=== PATIENT | female | born 1955 | race Caucasian/White ===

== ENCOUNTER 2017-09-12 16:28 | Emergency (ER) | payer MEDICARE, SELFPAY ==
[2017-09-12 16:29] VITALS: BP 102/51; PULSE 95; RESP 24; TEMP 36.6; BMI 22.1
--- NOTE | 2017-09-12 16:52 | CT_ITS ---
STUDY: CT BRAIN WITHOUT CONTRAST REASON FOR EXAM: Female, 61 years old. Confusion x2-3 days RADIATION DOSAGE (If Supplied By Facility): CTDIvol = ( 44.99 ) mGy, DLP = ( 779.24 ) mGycm TECHNIQUE: Transaxial CT imaging of the brain was performed without administration of intravenous contrast material. Individualized dose optimization techniques were used for this CT. COMPARISON: Prior study of February 05, 2017 FINDINGS: Normal soft tissue structures. Normal calvarium. Normal size ventricles and extra-axial spaces for the patient's age. Normal white matter tracts of the cerebral hemispheres. There are regions of encephalomalacia consistent with old infarcts of the right occipital and left parietal lobes, unchanged in distribution from the prior study. Normal basal ganglia and thalami. Normal brainstem. Normal cerebellum. There is no intracranial hemorrhage. There are no findings of an acute ischemic infarction. Normal visualized paranasal sinuses. 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 There is no intracranial hemorrhage or evidence of acute infarct. Electronically Signed: James Jj MD at 17:45 EDT , Service support ,
--- NOTE | 2017-09-12 16:52 | EKG12_ITS ---
Test Reason : CONFUSION Blood Pressure : / mmHG Vent. Rate : 094 BPM Atrial Rate : 094 BPM P-R Int : 126 ms QRS Dur : 076 ms QT Int : 346 ms P-R-T Axes : 071 087 055 degrees QTc Int : 432 ms Normal sinus rhythm ST & T wave abnormality, consider anterior ischemia Abnormal ECG Confirmed by MOISES MENDES, LINDSEY ([id number]), pictures editor AJ AYOUB ([id number]) on 09/15/2017 4:05:11 PM Referred By: KHARI Confirmed By:LINDSEY DE LEON MD
--- NOTE | 2017-09-12 16:53 | ED.VISSUMM ---
- ER Visit Summary Date of Service: 09/12/17 Chief Complaint: Confusion History of Present Illness: The patient is a 61 F here with significant other who is additional informant for confusion over the past 3 days. Patient has been forgetful, stating that she would see people that are not there. He states her kids moved out 3 months ago with grandchild, she would state kids need to prep dinner for her. Patient had stroke, last time 2 years ago. Denies any speech changes or hemiparesis. There has been no weakness or falls. Denies any upper respiratory symptoms. Denies any urinary symptoms. No GI symptoms. Patient normally alert and oriented ?3. Physical Examination: General: Alert and oriented to person and place, month was April, year was 2016. No acute distress. HEENT: Normocephalic, atraumatic. Moist mucosa membranes Neck: supple, nontender. Cardiovascular: Regular rate and rhythm, no murmurs Respiratory: Normal breath sounds, symmetric, no distress Abdomen: Soft, nontender, nondistended Extremities: Nontender, no edema, pulses intact ?4 Neuro: no focal neurological deficits. NIH equal 1 for being off on the month. Test Results: EKG sinus rate of 94, no ST changes. T-wave inversions V1 to V3 in leads III. 3 BC 9.3. Hemoglobin 14.6. Potassium hemolyzed at 5.8. Creatinine 1.87. BUN 33. Liver enzymes normal. Urine negative. CT head with old infarcts right occipital, left parietal. Chest x-ray negative. Emergency Department Course and Treatment: Patient presents with confusion, however stable. Stroke history. She is moving all 4 extremities. NIH was a 1 due to being off on the month. Workup initiated. Abnormalities creatinine 1.87 which is new. BUN is 33. She was given IV fluids of 1 L. No infection the urine or chest x-ray. Stable CT of the head. EKG T-wave inversions. She has no chest pains. Potassium was hemolyzed. No palpitation symptoms. She was ambulated in the ED to the restroom with no difficulties. Her blood pressure normally runs low. Her map is 75. Denied being lightheaded symptoms. Significant other is with her states he can stay with her and monitor. She feels better after IV fluids. Discussed with patient continue oral hydration at home, follow with PCP for recheck of labs. Discussed other of any worsening symptoms to return to the ED for reevaluation. All questions were answered. Treatment Plan: [] Disposition: Discharge Impression: 1. Confusion stable 2. Renal insufficiency 3. Dehydration This note was generated with [employer] dictation software. It may contain incorrect words, spelling, and punctuation that were not noted in review of the chart prior to signing ED Disposition - Plan for ED Patient: Disposition: Home or Assisted Living Chief Complaint: Confusion Diagnosis: Confusion, Dehydration, Acute renal insufficiency Instructions: ED Confusion, ED Insufficiency Renal, ED Dehydration Referrals: César Stahl MD [Primary Care Provider] - 3-5 Days Additional Instructions: Creatinine 1.87. Continue oral hydration at home. Follow with PCP reevaluation with recheck labs. Return if any worsening symptoms.
[2017-09-12 17:21] LABS: Bedside Glucose 127 mg/dL (70-110)
[2017-09-12 17:22] LABS: Absolute Lymphocyte Count 1.64 X10^3/ul (0.83-4.51); Absolute Neutrophil Count 6.6 X10^3/uL (2.0-7.7); Basophil# 0.03 X10^3/uL; Basophil% 0.3 % (0-1); Eosinophil# 0.04 X10^3/uL; Eosinophils% 0.4 % (0-5); Hematocrit 49.8 % (37-47); Hemoglobin 14.6 g/dl (12.0-15.0); Lymphocyte # 1.64 X10^3/ul (4.0); Lymphocyte % 17.6 % (19-41); Mean Corp Hgb Conc 29.3 g/gl (32-36); Mean Corpuscular Hgb 29.8 pg (27.0-32.0); Mean Corpuscular Volume 101.6 fL (81-99); Mean Platelet Vol. 11.2 fl (6.2-12.0); Monocyte# 0.98 X10^3/uL; Monocyte% 10.5 % (0-10); Neutrophil # 6.58 X10^3/uL (2.7-7.7); Neutrophil % 70.8 % (47-70); Platelet Count 224 K/mm3 (150-450); RBC Distribution Width CV 16.9 % (11.6-14.6); RBC Distribution Width SD 59.5 fl (35.1-43.9); White Blood Count 9.3 K/mm3 (4.4-11.0)
[2017-09-12 17:23] LABS: International Normalized Ratio 1.1; Prothrombin Time (Protime)PT. 13.8 SECONDS (11.7-14.9)
[2017-09-12 17:24] LABS: POSITIVE COUNT NO; POSITIVE DIFFERENTIAL NO; POSITIVE MORPHOLOGY NO; Partial Thromboplast Time 28.7 Seconds (24.1-36.2)
--- NOTE | 2017-09-12 17:28 | RAD_ITS ---
STUDY: X-RAY CHEST REASON FOR EXAM: Female, 61 years old. Confusion TECHNIQUE: PA and lateral views of the chest. COMPARISON: Previous study of February 07, 2017 FINDINGS: welding inspector leads are present. The lungs are clear and expanded. There is no demonstrated pleural abnormality. Normal size heart. Normal mediastinum and jacinto. Normal visualized pulmonary arteries. Normal visualized aortic arch and descending thoracic aorta. Normal visualized thoracic spine. Normal visualized ribs, clavicles, and shoulders. There is no demonstrated abnormality of the visualized soft tissue structures of the upper abdomen. RAD/Chest PA and Lateral IMPRESSION: Normal x-ray examination of the chest. No acute cardiopulmonary disease process is seen. Electronically Signed: James Jj MD at 17:46 EDT , Service support ,
[2017-09-12 17:34] LABS: ALB/GLOB Ratio 0.9 RATIO (0.9-2.4); AST(SGOT) 30 U/L (15-37); Alanine Aminotransfer ALT/SGPT 20 U/L (13-56); Albumin, Serum 3.7 g/dL (3.2-5.0); Alkaline Phosphatase 73 U/L (45-117); Anion Gap 3 (5-15); BUN 33 mg/dL (7-18); BUN/Creat Ratio 17.6 RATIO (10-20); Calcium,Total 8.8 mg/dL (8.5-10.1); Chloride 99 mmol/L (98-107); Creatinine, Serum 1.87 mg/dL (0.55-1.02); EST Glomerular Filtration Rate 29 mL/min (>60); Est Glom Filt Rate - Afr Amer 35 mL/min (>60); Glucose 136 mg/dL (74-106); Potassium 5.8 mmol/L (3.5-5.1); Protein, Total 7.7 g/dL (6.4-8.2); Sodium Level 138 mmol/L (136-145)
[2017-09-12 17:45] VITALS: BP 80/60
[2017-09-12 18:01] VITALS: BP 92/33; PULSE 92; RESP 50
[2017-09-12] MEDS: 0.9% Normal Saline 1,000 ML 999 ML IV (18:01)
[2017-09-12 18:05] LABS: Bacteria 0 SEEN /hpf (None Seen); Mucous, Urine 0 SEEN /hpf (<or=2+); Red Blood Cells-Urine 0 SEEN /hpf (0-5); Squamous Epithelial Cells - UA 0 SEEN /hpf (5-10); White Blood Cells 0 SEEN /hpf (0-5)
[2017-09-12 18:06] LABS: Color, Urine Yellow (Yellow); Glucose, Dipstick Normal (Normal); Ketone-Dipstick Negative (Negative); Leukocyte Esterase-Dipstick 25 /ul (Negative); Nitrite-Dipstick Negative (Negative); Occult Blood-Urine Negative /ul (Negative); Protein-Dipstick 15 mg/dl (Negative); Specific Gravity, Urine 1.025 (1.002-1.030); Urine Bilirubin Dipstick Negative (Negative); Urine Clarity Clear (Clear); Urine Urobilinogen Normal (Normal)
[2017-09-12 18:13] LABS: Hyaline Cast 50-100 SEEN /lpf (0-5)
[2017-09-12 19:35] VITALS: BP 80/69; PULSE 93; RESP 24; O2SAT 92
== END 2017-09-12 20:15 | disposition home or self-care (01) ==
PROVIDERS: Emergency Provider Emergency Medicine; Family Provider Family Medicine; PCP Family Medicine
DX: R41.0 Disorientation, unspecified (principal); N28.9 Disorder of kidney and ureter, unspecified; E86.0 Dehydration; I10 Essential (primary) hypertension; E78.00 Pure hypercholesterolemia, unspecified; J44.9 Chronic obstructive pulmonary disease, unspecified; I25.2 Old myocardial infarction; Z86.73 Personal history of transient ischemic attack (TIA), and cerebral infarction without residual deficits
CPT/HCPCS: 70450; 71046; 80053; 81001; 82962; 85025; 85610; 85730; 93005; 96360; 99284; J7030; A4216

== ENCOUNTER 2017-09-13 21:26 | Inpatient (IN) | payer MEDICARE, SELFPAY ==
[2017-09-13 21:39] VITALS: BP 88/45; PULSE 71; RESP 20; TEMP 36.3; O2SAT 100; BMI 27.3
--- NOTE | 2017-09-13 22:04 | CT_ITS ---
STUDY: CT BRAIN WITHOUT CONTRAST REASON FOR EXAM: Female, 61 years old. Altered mental status, confusion, and lethargy RADIATION DOSAGE (If Supplied By Facility): CTDIvol = ( 44.99 ) mGy, DLP = ( 782.05 ) mGycm TECHNIQUE: Transaxial CT imaging of the brain was performed without administration of intravenous contrast material. Individualized dose optimization techniques were used for this CT. COMPARISON: Previous study of 09/12/2017 FINDINGS: Normal soft tissue structures. Normal calvarium. Normal size ventricles and extra-axial spaces for the patient's age. Normal white matter tracts of the cerebral hemispheres. There are again demonstrated regions of encephalomalacia of the right occipital and left parietal lobes, unchanged in the interval. These are consistent with old infarcts. Normal basal ganglia and thalami. Normal brainstem. Normal cerebellum. There is no intracranial hemorrhage. There are no findings of an acute ischemic infarction. Normal visualized paranasal sinuses. CT/Brain/Head without Contrast IMPRESSION: Regions of encephalomalacia consistent with old infarcts of the right occipital and left parietal lobes. These appear stable in the interval from the previous study. There is no evidence of acute infarct or intracranial hemorrhage. If acute infarct is clinically suspected, MRI may be helpful for further evaluation at this time. Electronically Signed: James Jj MD at 22:53 EDT , Service support ,
--- NOTE | 2017-09-13 22:05 | EKG12_ITS ---
Test Reason : Blood Pressure : / mmHG Vent. Rate : 071 BPM Atrial Rate : 071 BPM P-R Int : 126 ms QRS Dur : 082 ms QT Int : 410 ms P-R-T Axes : 072 073 041 degrees QTc Int : 445 ms Normal sinus rhythm ST & T wave abnormality, consider anterior ischemia Abnormal ECG Confirmed by MOISES MENDES, LINDSEY ([id number]), editor sound AJ AYOUB ([id number]) on 09/15/2017 3:37:42 PM Referred By: DANO Confirmed By:LINDSEY DE LEON MD
[2017-09-13 22:11] LABS: Bedside Glucose 105 mg/dL (70-110)
[2017-09-13] MEDS: 0.9% Normal Saline 1,000 ML 1000 ML IV (22:13)
--- NOTE | 2017-09-13 22:21 | ED.RN ---
lab called coag and lactic acid hemolyzed. Primary nurse made aware at this time
--- NOTE | 2017-09-13 22:25 | RAD_ITS ---
STUDY: X-RAY CHEST REASON FOR EXAM: Female, 61 years old. Increased confusion TECHNIQUE: Single AP portable view of the chest. COMPARISON: Previous study of 09/12/2017 FINDINGS: monitoring coordinator leads are present. The lungs are clear and expanded. There is no demonstrated pleural abnormality. Normal size heart. There are bilateral calcified hilar nodes and calcified right mediastinal nodes. Normal visualized pulmonary arteries. Normal visualized aortic arch and descending thoracic aorta. Normal visualized thoracic spine. Normal visualized ribs, clavicles, and shoulders. There is no demonstrated abnormality of the visualized soft tissue structures of the upper abdomen. RAD/Chest 1 View (Portable) IMPRESSION: Calcified bilateral hilar and right mediastinal nodes. No acute cardiopulmonary disease process is seen. Electronically Signed: James Jj MD at 22:55 EDT , Service support ,
[2017-09-13 22:32] LABS: Hematocrit 47.9 % (37-47); Hemoglobin 13.9 g/dl (12.0-15.0); Mean Corpuscular Hgb 29.7 pg (27.0-32.0); Mean Corpuscular Volume 102.4 fL (81-99); Mean Platelet Vol. 10.9 fl (6.2-12.0); Platelet Count 199 K/mm3 (150-450); RBC Distribution Width CV 17.4 % (11.6-14.6); RBC Distribution Width SD 62.1 fl (35.1-43.9); Red Blood Count 4.68 M/mm3 (4.2-5.4); White Blood Count 10.6 K/mm3 (4.4-11.0)
[2017-09-13 22:34] LABS: POSITIVE COUNT YES; POSITIVE DIFFERENTIAL NO; POSITIVE MORPHOLOGY YES
[2017-09-13 22:35] LABS: ALB/GLOB Ratio 0.9 RATIO (0.9-2.4); AST(SGOT) 23 U/L (15-37); Alanine Aminotransfer ALT/SGPT 18 U/L (13-56); Albumin, Serum 3.2 g/dL (3.2-5.0); Alkaline Phosphatase 74 U/L (45-117); Anion Gap 2 (5-15); BUN 39 mg/dL (7-18); BUN/Creat Ratio 25.2 RATIO (10-20); Chloride 101 mmol/L (98-107); Creatinine, Serum 1.55 mg/dL (0.55-1.02); EST Glomerular Filtration Rate 36 mL/min (>60); Est Glom Filt Rate - Afr Amer 43 mL/min (>60); Estimated Creatinine Clearance 31.13 ml/min; Globulin 3.5 g/dL (2.2-4.2); Glucose 106 mg/dL (74-106); Potassium 5.6 mmol/L (3.5-5.1); Protein, Total 6.7 g/dL (6.4-8.2); Sodium Level 138 mmol/L (136-145)
[2017-09-13 22:53] LABS: Eosinophil 1 % (0-5); Lymphocyte 27 % (19-41); Monocyte 3 % (0-10); Neutrophil-Band 2 % (0-5); Neutrophil-Segmented 67 % (47-70); Nucleated Red Bld Cells,Manual 3 % (0-5); Total Cells Counted 100 (MANUAL DIFF)
[2017-09-13 22:56] LABS: Anisocytosis 1+; Macrocytosis 1+; Polychromasia 1+
[2017-09-13 22:57] LABS: Platelet Estimate ADEQUATE (ADEQ)
[2017-09-13 22:58] LABS: Differential Indicated MANUAL DIFF
[2017-09-13 22:59] LABS: Scan Smear per Review Criteria MANUAL DIFF
[2017-09-13 23:17] VITALS: BP 86/50; PULSE 74; RESP 18; O2SAT 97
[2017-09-13 23:21] LABS: Base Excess 5 mmol/L (-2 to +2); Bicarbonate 35.2 mmol/L (22-26); Blood Gas Specimen Type ART; O2 Delivery Device Nasal Can; PO2 135 mmHG (75-100); SITE R Radial; SO2 97 % (95-99); Time Given 2312; Total Carbon Dioxide 39 mmol/L; pCO2 126.1 mmHg (35-45); pH 7.05 (7.35-7.45)
[2017-09-13] MEDS: Etomidate 20 MG/10 ML Vial IV (23:34)
[2017-09-13] MEDS: Succinylcholine Chloride 200 MG/10 ML Vial 100 MG IV (23:35)
[2017-09-13 23:45] VITALS: PULSE 69; RESP 25; O2SAT 97
--- NOTE | 2017-09-13 23:45 | RAD_ITS ---
STUDY: X-RAY CHEST REASON FOR EXAM: Female, 61 years old. ETT PLACEMENT, OG TUBE TECHNIQUE: Single AP portable view of the chest. COMPARISON: None. FINDINGS: Endotracheal tube is seen its tip is 3.2 cm superior to the claude. An OG tube is seen its tip is below the diaphragm is in good position. The lungs are clear and expanded. There is no demonstrated pleural abnormality. Normal size heart. Normal mediastinum and jacinto. Normal visualized pulmonary arteries. Normal visualized aortic arch and descending thoracic aorta. Normal visualized thoracic spine. There is degenerative osteoarthritis of the bilateral shoulders. There is no demonstrated abnormality of the visualized soft tissue structures of the upper abdomen. RAD/Chest 1 View (Portable) IMPRESSION: Degenerative changes, as described above. No demonstrated acute cardiopulmonary process. Endotracheal tube is seen its tip is 3.2 cm superior to the claude. An OG tube is seen its tip is below the diaphragm is in good position. Electronically Signed: Peter De Guzman MD at 0:35 EDT Tel , Service support ,
[2017-09-13] MEDS: Midazolam 2 MG/2 ML Syringe IV (23:53)
[2017-09-14] VITALS (49 sets, daily range): BP systolic 78–139; BP diastolic 27–108; PULSE 44–85; RESP 13–23; TEMP 36.3–37.4; O2SAT 90–100; BMI 25.8
[2017-09-14] MEDS: Midazolam 5 MG/ML Syringe 4 MG IV (00:01)
[2017-09-14 00:12] LABS: Lactic Acid 0.7 mmol/L (0.4-2.0)
--- NOTE | 2017-09-14 00:12 | EKG12_ITS ---
Test Reason : REPEAT Blood Pressure : / mmHG Vent. Rate : 063 BPM Atrial Rate : 063 BPM P-R Int : 116 ms QRS Dur : 072 ms QT Int : 458 ms P-R-T Axes : 087 070 051 degrees QTc Int : 468 ms Normal sinus rhythm T wave abnormality, consider anterior ischemia Prolonged QT Abnormal ECG Confirmed by MOISES MENDES, LINDSEY ([id number]), general expeditor AJ AYOUB ([id number]) on 09/15/2017 3:37:59 PM Referred By: DANO Confirmed By:LINDSEY DE LEON MD
[2017-09-14] MEDS: Propofol 10MG/Ml 1,000 MG/100 ML Bottle 2.1 MG CONT INF ×2 (00:26→12:46)
[2017-09-14] MEDS: MethylPREDNISolone 125 MG/2 ML Vial IV (00:27)
[2017-09-14] MEDS: Albuterol 2.5 MG/3 ML VIAL.NEB. INHALATION ×2 (00:27→07:05)
[2017-09-14] MEDS: 0.9% Normal Saline 1,000 ML 1000 ML IV (00:29)
[2017-09-14] MEDS: Ipratropium/Albuterol Sulfate 3 ML AMPUL.NEB INHALATION ×5 (00:31→22:52)
--- NOTE | 2017-09-14 00:36 | ED.VISSUMM ---
- ER Visit Summary Date of Service: 09/14/17 Chief Complaint: Confusion History of Present Illness: The patient is a 61 F who presents with confusion. Does have a significant past medical history of stroke, ID ES family states she has been increasingly confused and sick for the past week. She has had increased fatigue and generalized weakness. She has just not been feeling well. She has become increasingly confused. She was seen in the emergency department last night. She was noted to have an acute kidney injury with elevated creatinine was treated with IV fluids and discharged home. Daughter states that she was much more confused today. Has had some cough and diarrhea but family states she has not been complaining of chest pain shortness of breath fevers or vomiting. Physical Examination: Initial blood pressure 88/45 heart rate 71 respiratory rate of 20 pulse ox 100% on nonrebreather GCS is 10 eyes 3, verbal 3, motor 4 she has mumbling and inappropriate words is a able to provide any history or answer questions but does not appear to have focal or lateralizing neurological deficits Heart is regular rate and rhythm Lungs are clear Abdomen soft Extremities nontender Test Results: EKG shows normal sinus rhythm at a rate of 71 with T-wave inversions in V1 through V4 which are new from prior. CBC unremarkable. Hepatic function unremarkable. Troponin negative. Lactic acid negative. Chemistries notable for potassium of 5.6 although this is moderately hemolyzed. BUN of 39 with a creatinine of 1.55. Chest x-ray shows no acute process. CT of the head shows old infarcts in the right occipital and left parietal lobes no acute process. ABG shows pH 7.05 with a PCO2 of 126 PO2 of 135. Emergency Department Course and Treatment: She was treated with IV fluids. On return of her ABG the decision was made in event. I spoke to family who agreed. Patient underwent rapid sequence intubation using etomidate and succinylcholine and a 7-1/2 endotracheal tube was easily passed. There were good breath sounds bilaterally and change in CO2 detector. Postintubation chest x-ray shows appropriate placement of endotracheal tube and orogastric tube. Patient did become agitated on the ventilator and was given Versed for sedation and then started on propofol infusion. After intubation her blood pressure improved and she was stable above 110 systolic. After being bolused with propofol she was transiently hypotensive. She does appear to be perfusing better with brisk capillary refill. In review of record she does have a history of COPD. After intubation she was also noted to have decreased air exchange and was given albuterol and Atrovent aerosols and IV Solu-Medrol. Given normal urine yesterday normal chest x-ray lack of tachycardia leukocytosis or lactic acidosis I do not believe this is related to any infectious process. I believe this is related to her COPD with severe hypercapnia. She was discussed with Dr. Flannery the manuscript editor on-call as well as the hospitalist will be admitted to the ICU. Repeat EKG shows persistent T-wave inversions in V1 and V2 with biphasic T waves in V3 and V4. Treatment Plan: [] Disposition: Admit Impression: Acute kidney injury Acute hypercapnic respiratory failure EKG changes This note was generated with [employer] dictation software. It may contain incorrect words, spelling, and punctuation that were not noted in review of the chart prior to signing ED Disposition - Plan for ED Patient: Chief Complaint: Confusion Referrals: César Stahl MD [Primary Care Provider] -
--- NOTE | 2017-09-14 00:39 | PCM.HP.STD ---
Problem List (1) Acute respiratory failure Status: Acute Qualifiers: Respiratory failure complication: hypercapnia Qualified Code(s): J96.02 - Acute respiratory failure with hypercapnia (2) Hemorrhagic cerebrovascular accident (CVA) Status: Resolved (3) Heart failure with reduced ejection fraction Status: Chronic (4) Metabolic encephalopathy Status: Acute (5) Elevated serum creatinine Status: Acute (6) COPD (chronic obstructive pulmonary disease) Status: Acute Qualifiers: COPD type: COPD with acute exacerbation Qualified Code(s): J44.1 - Chronic obstructive pulmonary disease with (acute) exacerbation (7) Alcoholism Status: Chronic History of Present Illness Date of Admission: 09/14/17 Chief Complaint: acute respiratory failure The patient is a 61 year old female who presents to the ER in a confused state. The patient has a recent history of hemorrhagic stroke in 02/2017 and a NSTEMI at that time. She has a known history of alcoholism and poor self care. She was seen in the ER yesterday and was discharged having been diagnosed with renal insufficiency. Today she was weak and more confused according to family members. Her ABG shows a pH of 7.05 and CO2 of 126. EKG shows new T-wave inversions. She was intubated and sedated. She appeared to have improved color after her second liter of IV fluid. She will be admitted to the ICU for advanced care. Past Medical History Past Medical History (Chronic Problems): Chronic Problems Heart failure with reduced ejection fraction (Chronic) Alcoholism (Chronic) Allergies tetanus and diphtheria toxoids [tetanus & diphtheria toxoids] Allergy (Verified 09/13/17 21:27) Hives Home Medications: Ambulatory Orders Medication Instructions Recorded Aspirin E.C. [Ecotrin] 81 mg PO DAILY 02/22/17 Atorvastatin Calcium 1 tab PO DAILY 02/22/17 Carvedilol [Coreg (Beta Indy)] 12.5 mg PO BID 02/22/17 Folic Acid [Folic Acid] 1 tab PO DAILY 02/22/17 Lisinopril [Zestril] 1 tab PO DAILY 02/22/17 Spironolactone 1 tab PO DAILY 02/22/17 Surgical History: cholecystectomy Psychiatric History: - - Insomnia CAPITAL EQUIPMENT SPECIALIST History: No pertinent CAPITAL EQUIPMENT SPECIALIST history Smoking Status: Former smoker - *Family History Maternal History Items: Cancer - Lung Paternal History Items: Cancer - Lung Sibling History Items: Cancer - lung Review of Systems Constitutional: Denies: Chills, Fever, Weight Change HEENT: Denies: Head Aches, Sinus Congestion, Sinus Drainage Cardiovascular: Denies: Chest Pain, Palpitations Respiratory: Reports: Shortness of breath at rest. Denies: Cough, Sputum production Gastrointestinal: Denies: Abdominal Pain, Nausea, Vomiting Genitourinary: Denies: Dysuria Musculoskeletal: Denies: Joint Pain, Joint Tenderness Skin: Denies: Rash, Wounds Neurological: Denies: Numbness, Tingling, Focal weakness Psychiatric: Denies: Anxiety, Depression, Homicidal Ideations, Suicidal Ideations Hematologic/ Lymphatic: Denies: Easy Bruising, Easy Bleeding Unable to obtain accurate/complete ROS d/t: poor historian due to confusion and now intubated VTE Information - Inpt Only VTE Present on Admission: No VTE Mechan Device Prophylaxis: None VTE Pharm Prophylaxis ordered?: Yes Patient Problems: Active and Suspected Problems Acute respiratory failure (Acute) - Physical Exam General: - - intubated HEENT: Atraumatic, Normocephalic Neck: Supple Lungs: No rhonchi, No wheeze, No rales, Diminished Cardiovascular: Regular rate, Regular Rhythm, Normal S1, Normal S2, No murmurs Abdomen: Bowel Sounds Present, Soft Extremities: No edema Skin: No rashes, No breakdown Neurological: - - under sedation protocol Vital Signs Temp Pulse Resp BP Pulse Ox 97.4 F L 61 15 114/72 100 09/14/17 00:05 09/14/17 00:31 09/14/17 00:31 09/14/17 00:31 09/14/17 00:31 Oxygen Flow Rate (L/min) 2 Oxygen Delivery Method Mechanical Ventilator Weight: 154 lb 5.177 oz Body Mass Index (BMI) 27.3 Finger Stick Blood Glucose 105 Laboratory Tests Past 24 Hrs 09/13/17 09/13/17 09/13/17 21:56 21:56 21:56 WBC 10.6 RBC 4.68 Hgb 13.9 Hct 47.9 H MCV 102.4 H MCH 29.7 MCHC 29.0 L RDW 17.4 H RDW Differential 62.1 H Plt Count 199 MPV 10.9 Immature Gran % (Auto) FOLDED CLOTH TAPER Neut % (Auto) FOLDED CLOTH TAPER Lymph % (Auto) FOLDED CLOTH TAPER Atlantic % (Auto) FOLDED CLOTH TAPER Eos % (Auto) FOLDED CLOTH TAPER Baso % (Auto) FOLDED CLOTH TAPER Absolute Neuts (auto) FOLDED CLOTH TAPER Absolute Lymphs (auto) FOLDED CLOTH TAPER Total Counted 100 Neutrophils % (Manual) 67 Band Neutrophils % 2 Lymphocytes % (Manual) 27 Monocytes % (Manual) 3 Eosinophils % (Manual) 1 Nucleated RBCs/100 WBC 3 Diff Path Review May foll Platelet Estimate ADEQUATE Polychromasia 1+ Anisocytosis 1+ Macrocytosis 1+ PT Cancelled INR Cancelled Specimen Type Sample Site pH Bicarbonate Actual POC Total CO2 Base Excess O2 Saturation ABG pCO2 ABG pO2 Royal Test O2 Delivery Device Liter Flow Blood Gas Notified Whom Blood Gas Notified Time Sodium 138 Potassium 5.6 H Chloride 101 Carbon Dioxide 35.0 H Anion Gap 2 L BUN 39 H Creatinine 1.55 H Estim Creat Clear Calc 31.13 Est GFR (MDRD) Af Amer 43 L Est GFR (MDRD) Non-Af 36 L BUN/Creatinine Ratio 25.2 H Glucose 106 Lactic Acid Calcium 8.0 L Total Bilirubin 0.50 AST 23 ALT 18 Alkaline Phosphatase 74 Troponin I < 0.02 Total Protein 6.7 Albumin 3.2 Globulin 3.5 Albumin/Globulin Ratio 0.9 09/13/17 09/13/17 09/13/17 21:56 23:13 23:23 WBC RBC Hgb Hct MCV MCH MCHC RDW RDW Differential Plt Count MPV Immature Gran % (Auto) Neut % (Auto) Lymph % (Auto) Atlantic % (Auto) Eos % (Auto) Baso % (Auto) Absolute Neuts (auto) Absolute Lymphs (auto) Total Counted Neutrophils % (Manual) Band Neutrophils % Lymphocytes % (Manual) Monocytes % (Manual) Eosinophils % (Manual) Nucleated RBCs/100 WBC Diff Path Review Platelet Estimate Polychromasia Anisocytosis Macrocytosis PT INR Specimen Type ART Sample Site R Radial pH 7.05 L* Bicarbonate Actual 35.2 H POC Total CO2 39 Base Excess 5 H O2 Saturation 97 ABG pCO2 126.1 H* ABG pO2 135 H Royal Test NA O2 Delivery Device Nasal Can Liter Flow 4.0 Blood Gas Notified Whom ED Blood Gas Notified Time 2312 Sodium Potassium Chloride Carbon Dioxide Anion Gap BUN Creatinine Estim Creat Clear Calc Est GFR (MDRD) Af Amer Est GFR (MDRD) Non-Af BUN/Creatinine Ratio Glucose Lactic Acid Cancelled 0.7 Calcium Total Bilirubin AST ALT Alkaline Phosphatase Troponin I Total Protein Albumin Globulin Albumin/Globulin Ratio POC Glucose 09/13/17 22:07 POC Glucose 105 Assessment/Plan Active and Suspected Problems Acute respiratory failure (Acute) Chronic conditions - history of alcoholism - COPD - CVA - CAD hx of NSTEMI - poor self care Plan - admit to ICU - Consult Dr Flannery for ICU management - continue propofol sedation - ABG, CBC, CMP in am - add thiamine and folate - LMWH for DVT prophylaxis - solumedrol IV 40mg iv q 8 - levaquin 500mg IV q day - cycle cardiac enzymes - repeat EKG in am Code Visit Inpatient E&M: 79123 Init Hosp L3
--- NOTE | 2017-09-14 00:44 | ED.DCSUM_ITS ---
- ER Visit Summary Date of Service: 09/14/17 Chief Complaint: Confusion History of Present Illness: The patient is a 61 F who presents with confusion. Does have a significant past medical history of stroke, [place] ES family states she has been increasingly confused and sick for the past week. She has had increased fatigue and generalized weakness. She has just not been feeling well. She has become increasingly confused. She was seen in the emergency department last night. She was noted to have an acute kidney injury with elevated creatinine was treated with IV fluids and discharged home. Daughter states that she was much more confused today. Has had some cough and diarrhea but family states she has not been complaining of chest pain shortness of breath fevers or vomiting. Physical Examination: Initial blood pressure 88/45 heart rate 71 respiratory rate of 20 pulse ox 100% on nonrebreather GCS is 10 eyes 3, verbal 3, motor 4 she has mumbling and inappropriate words is a able to provide any history or answer questions but does not appear to have focal or lateralizing neurological deficits Heart is regular rate and rhythm Lungs are clear Abdomen soft Extremities nontender Test Results: EKG shows normal sinus rhythm at a rate of 71 with T-wave inversions in V1 through V4 which are new from prior. CBC unremarkable. Hepatic function unremarkable. Troponin negative. Lactic acid negative. Chemistries notable for potassium of 5.6 although this is moderately hemolyzed. BUN of 39 with a creatinine of 1.55. Chest x-ray shows no acute process. CT of the head shows old infarcts in the right occipital and left parietal lobes no acute process. ABG shows pH 7.05 with a PCO2 of 126 PO2 of 135. Emergency Department Course and Treatment: She was treated with IV fluids. On return of her ABG the decision was made in event. I spoke to family who agreed. Patient underwent rapid sequence intubation using etomidate and succinylcholine and a 7-1/2 endotracheal tube was easily passed. There were good breath sounds bilaterally and change in CO2 detector. Postintubation chest x-ray shows appropriate placement of endotracheal tube and orogastric tube. Patient did become agitated on the ventilator and was given Versed for sedation and then started on propofol infusion. After intubation her blood pressure improved and she was stable above 110 systolic. After being bolused with propofol she was transiently hypotensive. She does appear to be perfusing better with brisk capillary refill. In review of record she does have a history of COPD. After intubation she was also noted to have decreased air exchange and was given albuterol and Atrovent aerosols and IV Solu-Medrol. Given normal urine yesterday normal chest x-ray lack of tachycardia leukocytosis or lactic acidosis I do not believe this is related to any infectious process. I believe this is related to her COPD with severe hypercapnia. She was discussed with Dr. Flannery the director plans on-call as well as the hospitalist will be admitted to the ICU. Repeat EKG shows persistent T- wave inversions in V1 and V2 with biphasic T waves in V3 and V4. Treatment Plan: [] Disposition: Admit Impression: Acute kidney injury Acute hypercapnic respiratory failure EKG changes This note was generated with [employer] dictation software. It may contain incorrect words, spelling, and punctuation that were not noted in review of the chart prior to signing ED Disposition - Plan for ED Patient: Chief Complaint: Confusion Referrals: César Stahl MD [Primary Care Provider] -
--- NOTE | 2017-09-14 00:49 | HP.PCM_ITS ---
Problem List (1) Acute respiratory failure Status: Acute Qualifiers: Respiratory failure complication: hypercapnia Qualified Code(s): J96.02 - Acute respiratory failure with hypercapnia (2) Hemorrhagic cerebrovascular accident (CVA) Status: Resolved (3) Heart failure with reduced ejection fraction Status: Chronic (4) Metabolic encephalopathy Status: Acute (5) Elevated serum creatinine Status: Acute (6) COPD (chronic obstructive pulmonary disease) Status: Acute Qualifiers: COPD type: COPD with acute exacerbation Qualified Code(s): J44.1 - Chronic obstructive pulmonary disease with (acute) exacerbation (7) Alcoholism Status: Chronic History of Present Illness Date of Admission: 09/14/17 Chief Complaint: acute respiratory failure The patient is a 61 year old female who presents to the ER in a confused state. The patient has a recent history of hemorrhagic stroke in 02/2017 and a NSTEMI at that time. She has a known history of alcoholism and poor self care. She was seen in the ER yesterday and was discharged having been diagnosed with renal insufficiency. Today she was weak and more confused according to family members. Her ABG shows a pH of 7.05 and CO2 of 126. EKG shows new T-wave inversions. She was intubated and sedated. She appeared to have improved color after her second liter of IV fluid. She will be admitted to the ICU for advanced care. Past Medical History Past Medical History (Chronic Problems): Chronic Problems Heart failure with reduced ejection fraction (Chronic) Alcoholism (Chronic) Allergies tetanus and diphtheria toxoids [tetanus & diphtheria toxoids] Allergy (Verified 09/13/17 21:27) Hives Home Medications: Ambulatory Orders Medication Instructions Recorded Aspirin E.C. 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 Denies: Cough, Sputum production Gastrointestinal: Denies: Abdominal Pain, Nausea, Vomiting Genitourinary: Denies: Dysuria Musculoskeletal: Denies: Joint Pain, Joint Tenderness Skin: Denies: Rash, Wounds Neurological: Denies: Numbness, Tingling, Focal weakness Psychiatric: Denies: Anxiety, Depression, Homicidal Ideations, Suicidal Ideations Hematologic/ Lymphatic: Denies: Easy Bruising, Easy Bleeding Unable to obtain accurate/complete ROS d/t: poor historian due to confusion and now intubated VTE Information - Inpt Only VTE Present on Admission: No VTE Mechan Device Prophylaxis: None VTE Pharm Prophylaxis ordered?: Yes Patient Problems: Active and Suspected Problems Acute respiratory failure (Acute) - Physical Exam General: - - intubated HEENT: Atraumatic, Normocephalic Neck: Supple Lungs: No rhonchi, No wheeze, No rales, Diminished Cardiovascular: Regular rate, Regular Rhythm, Normal S1, Normal S2, No murmurs Abdomen: Bowel Sounds Present, Soft Extremities: No edema Skin: No rashes, No breakdown Neurological: - - under sedation protocol Vital Signs Temp Pulse Resp BP Pulse Ox 97.4 F L 61 15 114/72 100 09/14/17 00:05 09/14/17 00:31 09/14/17 00:31 09/14/17 00:31 09/14/17 00:31 Oxygen Flow Rate (L/min) 2 Oxygen Delivery Method Mechanical Ventilator Weight: 154 lb 5.177 oz Body Mass Index (BMI) 27.3 Finger Stick Blood Glucose 105 Laboratory Tests Past 24 Hrs 09/13/17 09/13/17 09/13/17 21:56 21:56 21:56 WBC 10.6 RBC 4.68 Hgb 13.9 Hct 47.9 H MCV 102.4 H MCH 29.7 MCHC 29.0 L RDW 17.4 H RDW Differential 62.1 H Plt Count 199 MPV 10.9 Immature Gran % (Auto) BATCH MIXER Neut % (Auto) BATCH MIXER Lymph % (Auto) BATCH MIXER Villalba % (Auto) BATCH MIXER Eos % (Auto) BATCH MIXER Baso % (Auto) BATCH MIXER Absolute Neuts (auto) BATCH MIXER Absolute Lymphs (auto) BATCH MIXER Total Counted 100 Neutrophils % (Manual) 67 Band Neutrophils % 2 Lymphocytes % (Manual) 27 Monocytes % (Manual) 3 Eosinophils % (Manual) 1 Nucleated RBCs/100 WBC 3 Diff Path Review May foll Platelet Estimate ADEQUATE Polychromasia 1+ Anisocytosis 1+ Macrocytosis 1+ PT Cancelled INR Cancelled Specimen Type Sample Site pH Bicarbonate Actual POC Total CO2 Base Excess O2 Saturation ABG pCO2 ABG pO2 Royal Test O2 Delivery Device Liter Flow Blood Gas Notified Whom Blood Gas Notified Time Sodium 138 Potassium 5.6 H Chloride 101 Carbon Dioxide 35.0 H Anion Gap 2 L BUN 39 H Creatinine 1.55 H Estim Creat Clear Calc 31.13 Est GFR (MDRD) Af Amer 43 L Est GFR (MDRD) Non-Af 36 L BUN/Creatinine Ratio 25.2 H Glucose 106 Lactic Acid Calcium 8.0 L Total Bilirubin 0.50 AST 23 ALT 18 Alkaline Phosphatase 74 Troponin I < 0.02 Total Protein 6.7 Albumin 3.2 Globulin 3.5 Albumin/Globulin Ratio 0.9 09/13/17 09/13/17 09/13/17 21:56 23:13 23:23 WBC RBC Hgb Hct MCV MCH MCHC RDW RDW Differential Plt Count MPV Immature Gran % (Auto) Neut % (Auto) Lymph % (Auto) Villalba % (Auto) Eos % (Auto) Baso % (Auto) Absolute Neuts (auto) Absolute Lymphs (auto) Total Counted Neutrophils % (Manual) Band Neutrophils % Lymphocytes % (Manual) Monocytes % (Manual) Eosinophils % (Manual) Nucleated RBCs/100 WBC Diff Path Review Platelet Estimate Polychromasia Anisocytosis Macrocytosis PT INR Specimen Type ART Sample Site R Radial pH 7.05 L* Bicarbonate Actual 35.2 H POC Total CO2 39 Base Excess 5 H O2 Saturation 97 ABG pCO2 126.1 H* ABG pO2 135 H Royal Test NA O2 Delivery Device Nasal Can Liter Flow 4.0 Blood Gas Notified Whom ED Blood Gas Notified Time 2312 Sodium Potassium Chloride Carbon Dioxide Anion Gap BUN Creatinine Estim Creat Clear Calc Est GFR (MDRD) Af Amer Est GFR (MDRD) Non-Af BUN/Creatinine Ratio Glucose Lactic Acid Cancelled 0.7 Calcium Total Bilirubin AST ALT Alkaline Phosphatase Troponin I Total Protein Albumin Globulin Albumin/Globulin Ratio POC Glucose 09/13/17 22:07 POC Glucose 105 Assessment/Plan Active and Suspected Problems Acute respiratory failure (Acute) Chronic conditions - history of alcoholism - COPD - CVA - CAD hx of NSTEMI - poor self care Plan - admit to ICU - Consult Dr Flannery for ICU management - continue propofol sedation - ABG, CBC, CMP in am - add thiamine and folate - LMWH for DVT prophylaxis - solumedrol IV 40mg iv q 8 - levaquin 500mg IV q day - cycle cardiac enzymes - repeat EKG in am Code Visit Inpatient E&M: 83434 Init Hosp L3
[2017-09-14] MEDS: LORazepam 2 MG/ML Syringe IV (00:57)
[2017-09-14 01:17] LABS: Base Excess 6 mmol/L (-2 to +2); Bicarbonate 31.2 mmol/L (22-26); Blood Gas Specimen Type ART; FI02 50; Mode A-C; O2 Delivery Device Vent; PEEP 5; PO2 106 mmHG (75-100); RR 14; SITE R Radial; SO2 98 % (95-99); Time Given 107; Total Carbon Dioxide 33 mmol/L; Vt 450; pCO2 50.6 mmHg (35-45)
[2017-09-14 01:32] LABS: Potassium 5.7 mmol/L (3.5-5.1); Triglycerides 147 mg/dL
[2017-09-14 01:51] LABS: Absolute Lymphocyte Count 2.86 X10^3/ul (0.83-4.51); Absolute Neutrophil Count 7.3 X10^3/uL (2.0-7.7)
--- NOTE | 2017-09-14 02:26 | RAD_ITS ---
STUDY: X-RAY CHEST REASON FOR EXAM: Female, 61 years old. Reposition ET tube TECHNIQUE: Single AP portable view of the chest. COMPARISON: 09/13/2017 FINDINGS: The endotracheal tube tip is 3.4 cm superior to the claude. The enteric tube courses inferior to the left diaphragm, its tip is not included or visualized. There are superimposed monitor leads. There is hyperinflation of the lungs consistent with chronic obstructive lung disease (COPD). There is indistinct right diaphragmatic contour, not significantly changed. There is no demonstrated pleural abnormality. Normal size heart. Normal mediastinum and jacinto. Normal visualized pulmonary arteries. Normal visualized aortic arch and descending thoracic aorta. Normal visualized thoracic spine. Normal visualized ribs, clavicles, and shoulders. There is no demonstrated abnormality of the visualized soft tissue structures of the upper abdomen. RAD/Chest 1 View (Portable) IMPRESSION: The lines are in adequate position. COPD. Indistinct right diaphragmatic contour could be due to mild pleural thickening and/or effusion. Electronically Signed: Ayah Coffman MD at 4:13 EDT , Service support ,
[2017-09-14] MEDS: 0.9% Normal Saline 1,000 ML 100 ML IV (02:54)
[2017-09-14] MEDS: Chlorhexidine 15 ML PO ×3 (03:12→21:14)
[2017-09-14] MEDS: CHLORHEXIDINE GLUC 2% CLOTH 1 EACH TOWELETTE TOPICAL (03:23)
[2017-09-14 03:32] LABS: Absolute Lymphocyte Count 1.16 X10^3/ul (0.83-4.51); Absolute Neutrophil Count 8.8 X10^3/uL (2.0-7.7); Basophil# 0.03 X10^3/uL; Basophil% 0.3 % (0-1); Eosinophil# 0.03 X10^3/uL; Eosinophils% 0.3 % (0-5); Hematocrit 49.2 % (37-47); Hemoglobin 14.8 g/dl (12.0-15.0); Lymphocyte # 1.16 X10^3/ul (4.0); Lymphocyte % 10.9 % (19-41); Mean Corp Hgb Conc 30.1 g/gl (32-36); Mean Corpuscular Hgb 30.3 pg (27.0-32.0); Mean Corpuscular Volume 100.6 fL (81-99); Mean Platelet Vol. 10.9 fl (6.2-12.0); Monocyte# 0.52 X10^3/uL; Monocyte% 4.9 % (0-10); Neutrophil # 8.78 X10^3/uL (2.7-7.7); Neutrophil % 82.2 % (47-70); POSITIVE COUNT NO; POSITIVE DIFFERENTIAL NO; POSITIVE MORPHOLOGY NO; Platelet Count 167 K/mm3 (150-450); RBC Distribution Width CV 16.9 % (11.6-14.6); RBC Distribution Width SD 59.7 fl (35.1-43.9); Red Blood Count 4.89 M/mm3 (4.2-5.4); White Blood Count 10.7 K/mm3 (4.4-11.0)
[2017-09-14 03:33] LABS: Absolute Nucleated RBC Count 0.25 10^3/uL (0-5); NRBC Flagged by Analyzer 2.4 % (0-5)
[2017-09-14 03:39] LABS: International Normalized Ratio 1.1; Prothrombin Time (Protime)PT. 14.5 SECONDS (11.7-14.9)
[2017-09-14 03:52] LABS: AST(SGOT) 29 U/L (15-37); Alanine Aminotransfer ALT/SGPT 19 U/L (13-56); Albumin, Serum 3.2 g/dL (3.2-5.0); Alkaline Phosphatase 69 U/L (45-117); Anion Gap 8 (5-15); BUN 36 mg/dL (7-18); BUN/Creat Ratio 26.7 RATIO (10-20); Calcium,Total 8.2 mg/dL (8.5-10.1); Chloride 102 mmol/L (98-107); Creatinine, Serum 1.35 mg/dL (0.55-1.02); EST Glomerular Filtration Rate 42 mL/min (>60); Est Glom Filt Rate - Afr Amer 51 mL/min (>60); Estimated Creatinine Clearance 35.74 ml/min; Globulin 3.3 g/dL (2.2-4.2); Glucose 95 mg/dL (74-106); Potassium 5.3 mmol/L (3.5-5.1); Protein, Total 6.5 g/dL (6.4-8.2); Sodium Level 143 mmol/L (136-145)
--- NOTE | 2017-09-14 04:54 | CON.PCM_ITS ---
Reason for Consult Date of Consultation: 09/14/17 Reason for Consultation: Respiratory failure History of Present Illness: The patient is a 61-year-old female, with a history as outlined below, who presented to the emergency department on September 14 with generalized malaise and increasing confusion over 1 week. The patient was seen in the emergency department on the evening of September 12 and was noted to be confused at that time. Workup at that time was negative. She was given supplemental IV fluid hydration with improvement in her symptoms. She was therefore discharged home. Patient has a history of a prior hemorrhagic stroke and alcoholism. She also has a presumptive history of COPD and ongoing tobacco use. Pulmonary function testing has never been completed previously. It does not appear that she is on any outpatient baseline inhalers. On presentation to the emergency department, the patient was noted to be afebrile, hypotensive and hypoxic on a nonrebreather. Initial laboratory evaluation revealed no evidence for leukocytosis. The patient did have macrocytic blood indices. INR is within normal limits. Initial arterial blood gas on 4 L/min revealed a pH of 7.05 with a PCO2 of 126 and PO2 of 135. Chemistry profile revealed an elevated potassium to 5.7, serum bicarbonate of 35 (which appears to be chronic), along with evidence of acute kidney injury with a creatinine 1.55. Troponin was negative. CT head revealed evidence of old infarcts in the right occipital and left parietal lobes. There was no evidence of acute infarction or intracranial hemorrhage. Plain film chest x- ray revealed no acute cardiopulmonary process with evidence of calcified bilateral hilar and mediastinal lymph nodes. Patient had a documented GCS of 10 on arrival. Given the depressed mental state noted on arrival along with elevated PCO2 on blood gas, the patient was electively intubated. She was provided supplemental IV fluids, aerosol treatments and steroids. She was subsequently transferred to the medical intensive care unit for ongoing management. Past Medical History Past Medical History (Chronic Problems): Chronic Problems Heart failure with reduced ejection fraction (Chronic) Alcoholism (Chronic) Allergies tetanus and diphtheria toxoids [tetanus & diphtheria toxoids] Allergy (Verified 09/13/17 21:27) Hives Home Medications: Ambulatory Orders Medication Instructions Recorded Aspirin E.C. 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 Patient Problems: Active and Suspected Problems Acute respiratory failure (Acute) Objective: The patient's most recent lab work, culture data and imaging studies have all been personally reviewed. Blood cultures are pending. Surface echocardiogram completed in February 2017 revealed mild global LV systolic dysfunction with an ejection fraction of 45%. Pulmonary artery systolic pressure was estimated to be 36 mmHg. - Physical Exam General: No apparent distress, - - Currently intubated, sedated and mechanically ventilated HEENT: Atraumatic, PERRLA, Normocephalic Oral: No Gingival or Mucosal Lesions/ Ulcerations, - - Endotracheal and OG tubes in place Neck: Supple, No Nodes, Trachea Midline Lungs: - - Mechanical breath sounds. Clear across anterior lung smith without discernible wheezes, rales or rhonchi. Cardiovascular: Regular rate, Regular Rhythm, Normal S1, Normal S2, No murmurs, No rub noted, No Gallop Abdomen: Soft, Non Tender, Non-Distended, Hypoactive Bowel Sounds Extremities: No clubbing, No cyanosis, No edema Skin: No rashes, No breakdown, - - Tattoos present Musculoskeletal: No Muscle Wasting Lymphatic: No Cervical, Supraclavicular, or Inguinal Adenopathy Neurological: - - Currently sedated with a RASS of -3 Vital Signs Temp Pulse Resp BP Pulse Ox 99.2 F H 70 14 113/48 L 100 09/14/17 04:00 09/14/17 04:00 09/14/17 04:00 09/14/17 04:00 09/14/17 04:00 Oxygen Delivery Method Mechanical Ventilator Weight: 145 lb 11.609 oz Body Mass Index (BMI) 25.8 Laboratory Tests Past 24 Hrs 09/14/17 09/14/17 09/14/17 01:08 03:10 03:10 WBC 10.7 RBC 4.89 Hgb 14.8 Hct 49.2 H MCV 100.6 H MCH 30.3 MCHC 30.1 L RDW 16.9 H RDW Differential 59.7 H Plt Count 167 MPV 10.9 Immature Gran % (Auto) 1.400 H Neut % (Auto) 82.2 H Lymph % (Auto) 10.9 L Antelope % (Auto) 4.9 Eos % (Auto) 0.3 Baso % (Auto) 0.3 Absolute Neuts (auto) 8.8 H Absolute Lymphs (auto) 1.16 Total Counted Not Reportable Nucleated RBC % 2.4 Absolute Retic 0.25 PT 14.5 INR 1.1 Specimen Type ART Sample Site R Radial pH 7.40 Bicarbonate Actual 31.2 H POC Total CO2 33 Base Excess 6 H O2 Saturation 98 O2 % 50 ABG pCO2 50.6 H ABG pO2 106 H Respiration Rate 14 O2 Delivery Device Vent Vent Mode A-C Tidal Volume 450 POC PEEP 5 Blood Gas Notified Whom ED MD Blood Gas Notified Time 107 Sodium Potassium Chloride Carbon Dioxide Anion Gap BUN Creatinine Estim Creat Clear Calc Est GFR (MDRD) Af Amer Est GFR (MDRD) Non-Af BUN/Creatinine Ratio Glucose Calcium Total Bilirubin AST ALT Alkaline Phosphatase Total Protein Albumin Globulin Albumin/Globulin Ratio 09/14/17 03:10 WBC RBC Hgb Hct MCV MCH MCHC RDW RDW Differential Plt Count MPV Immature Gran % (Auto) Neut % (Auto) Lymph % (Auto) Antelope % (Auto) Eos % (Auto) Baso % (Auto) Absolute Neuts (auto) Absolute Lymphs (auto) Total Counted Nucleated RBC % Absolute Retic PT INR Specimen Type Sample Site pH Bicarbonate Actual POC Total CO2 Base Excess O2 Saturation O2 % ABG pCO2 ABG pO2 Respiration Rate O2 Delivery Device Vent Mode Tidal Volume POC PEEP Blood Gas Notified Whom Blood Gas Notified Time Sodium 143 Potassium 5.3 H Chloride 102 Carbon Dioxide 33.0 H Anion Gap 8 BUN 36 H Creatinine 1.35 H Estim Creat Clear Calc 35.74 Est GFR (MDRD) Af Amer 51 L Est GFR (MDRD) Non-Af 42 L BUN/Creatinine Ratio 26.7 H Glucose 95 Calcium 8.2 L Total Bilirubin 1.10 H AST 29 ALT 19 Alkaline Phosphatase 69 Total Protein 6.5 Albumin 3.2 Globulin 3.3 Albumin/Globulin Ratio 1.0 Clinical Impression(s) from Imaging Studies Brain CT 09/13/17 22:04 IMPRESSION: Regions of encephalomalacia consistent with old infarcts of the right occipital and left parietal lobes. These appear stable in the interval from the previous study. There is no evidence of acute infarct or intracranial hemorrhage. If acute infarct is clinically suspected, MRI may be helpful for further evaluation at this time. Electronically Signed: James Jj MD at 22:53 EDT , Service support , Chest X-Ray 09/13/17 22:25 IMPRESSION: Calcified bilateral hilar and right mediastinal nodes. No acute cardiopulmonary disease process is seen. Electronically Signed: James Jj MD at 22:55 EDT , Service support , Chest X-Ray 09/13/17 23:45 IMPRESSION: Degenerative changes, as described above. No demonstrated acute cardiopulmonary process. Endotracheal tube is seen its tip is 3.2 cm superior to the claude. An OG tube is seen its tip is below the diaphragm is in good position. Electronically Signed: Peter De Guzman MD at 0:35 EDT Tel , Service support , Chest X-Ray 09/14/17 02:26 IMPRESSION: The lines are in adequate position. COPD. Indistinct right diaphragmatic contour could be due to mild pleural thickening and/or effusion. Electronically Signed: Ayah Coffman MD at 4:13 EDT , Service support , Assessment/Plan Active and Suspected Problems Acute respiratory failure (Acute) RECOMMENDATIONS: 1. Continue scheduled aerosol treatments and steroids. 2. Wean FiO2 to maintain oxygen saturations 88-92% 3. Plan for daily. Spontaneous awakening and breathing trials. 4. In the absence of a fever, white count or infiltrate on chest imaging, will hold off on antibiotics. 5. Obtain full respiratory viral panel 6. Check TSH and ammonia levels, along with urine toxicology screen 7. Start tube feeds today 8. Maintain appropriate ICU prophylaxis with Pepcid and Lovenox IMPRESSIONS: 1. Acute on chronic respiratory failure/presumptive COPD of unknown severity The patient appears to have a baseline chronic CO2 retention, based upon the results of her last ABG. Her serum bicarbonate level has also been elevated since February 2017. The patient has a reported history of tobacco use with suppose it underlying COPD. However, PFTs have never been completed to confirm this assertion. She does not appear to be on any outpatient inhalers. Plain film chest imaging revealed no acute cardiopulmonary process. Therefore, no antibiotics are indicated at this time. The patient will remain on scheduled aerosol treatments and IV steroids. Plan for daily paired spontaneous awakening and breathing trials. Wean FiO2 to maintain oxygen saturations 88-92% . Obtain full respiratory viral panel. 2. Hypercarbic encephalopathy Improved with invasive mechanical ventilation. Anticipate improvement in mentation with normalization of the patient's acid-base disturbance. 3. Acute kidney injury Likely prerenal in etiology. Creatinine is improved following volume expansion. Urine output is appropriate. No indication for renal replacement therapy at this time. 4. Chronic Systolic heart failure/pulmonary hypertension Continue current medical management. Maintain euvolemic state. 5. Personal history of alcoholism/prior upper GI bleed Unclear if the patient is currently drinking or not. Will attempt to reach family to clarify this issue. Blood counts remain stable at this time. Continue appropriate GI prophylaxis. 6. Prior hemorrhagic stroke/coronary artery disease/hyperlipidemia/hypertension /tobacco dependence Complicates care, management, recovery and prognosis. Likely okay to continue home medications. We will plan to start tube feeds today. The patient will require eventual physical therapy evaluation. TIME: 50 minutes of critical care time, independent of procedures, was spent addressing the patient's acute on chronic respiratory failure, COPD of unknown severity, hypercarbic encephalopathy, congestive heart failure, pulmonary hypertension, review of all data and collaboration with the care team. ([id number]) Code Visit 9xxxx: [id number] Critical care first hour
[2017-09-14] MEDS: 0.9% NaCl Peripheral Flush Adult/Peds IV ×2 (05:49→21:15)
[2017-09-14 07:16] LABS: Thyroid Stim Hormone (TSH) 1.38 uIU/mL (0.358-3.74)
[2017-09-14 09:10] LABS: Amphetamine Urine VISTA NEGATIVE (<1000 ng/mL); Barbiturate Urine VISTA NEGATIVE (< 200 ng/mL); Benzodiazepine Urine VISTA POSITIVE (< 200 ng/mL); Cocaine Urine VISTA NEGATIVE (< 300 ng/mL); Ecstacy Urine VISTA NEGATIVE (< 500 ng/mL); Methadone Urine VISTA NEGATIVE (< 300 ng/mL); PCP Urine VISTA NEGATIVE (< 25 ng/mL); THC Urine VISTA NEGATIVE (< 50 ng/mL); Vista UDS pH Range 7
--- NOTE | 2017-09-14 09:24 | PCM.PROGNOTE ---
Patient Problems: Active and Suspected Problems Acute respiratory failure (Acute) Subjective: Patient is a 61-year-old female with a past medical history of systolic congestive heart failure(45% EF 02/2017) , hemorrhagic CVA (February 2017), COPD, pulmonary hypertension with a PA of 36 mmHg in February 2017, hyperlipidemia, DTs with alcohol withdrawal, alcoholism, upper GI bleed secondary to Jennifer-Torrez tear and coronary artery disease (NSTEMI in February 2017) who presented to the ED at [facility] on 09/14/17 with a complaint of generalized weakness, increased fatigue and confusion. Her daughter stated she had also had a cough and some diarrhea. Vital signs at presentation to the emergency room were temperature 97.3, pulse rate 71, blood pressure 88/45, respiratory rate 20 and she was 100% saturated on a nonrebreather and 97% saturated on a 2 L nasal cannula. Chest x-ray showed hyperinflation and radiology reported no pulmonary vascular congestion, pleural effusions or infiltrates. CT brain showed encephalomalacia in the right occipital lobe and left parietal lobe secondary to prior CVAs. There was no bleeding. White blood cell count was 10.6 with an unremarkable differential. Hemoglobin was 13.9 with an MCV of 102.4 and the platelet count was 199,000. ABG on a 4 L nasal cannula showed a pH of 7.05, PCO2 of 126 and a PO2 of 135. Serum bicarb was elevated at 35 and the potassium was elevated at 5.7. BUN was 39 and the creatinine was 1.55. Creat was 1.87 on 09/12 when she was seen in the ER and hydrated. Her baseline creatinine over the past year has ranged from 0.57 to 2.0. LFTs were unremarkable. The lactic acid was 0.7. Urine tox screen was positive for benzodiazepines but, she had Ativan in the ER for intubation. She was intubated for respiratory acidosis. Family was in agreement. She was admitted to the intensive care unit and started on high-dose intravenous steroids, aerosolized bronchodilators and propofol for sedation. Dr. Flannery was consulted to participate in management in the intensive care unit. EEG after the hemorrhagic CVA in February 2017 showed no epileptiform activity. There was generalized slowing. Ventilator Day #1 TMAX: Afebrile since admission Vital signs: Stable Fluid balance: -525 Urine output: 900 Weight: 145 lbs. 11 oz. All radiologic testing was reviewed: no pleural effusions, PVC per my review, no obvious infiltrates All labs were personally reviewed: Potassium remains mildly elevated at 5.3-Aldactone has been discontinued ABG today on a 50% FiO2, assist control, 5 PEEP shows pH to be 7.4, PCO2 50 and PO2 106. BUN is 36 and the creatinine is down to 1.35. Ammonia is within normal limits at 29. TSH is normal. Microbiology: Blood cultures and respiratory panel are pending. Objective: intubated and there is no family in the room - Physical Exam General: - - sedated and on mechical ventilation....she does arouse a little when I was examining her and then fell back to sleep. 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 Neck: Supple, No JVD, Negative Carotid Bruits, No Nuchal Rigidity Lungs: Clear to auscultation - Anterior and lateral, No rhonchi, No wheeze, No rales, Diminished Cardiovascular: Regular rate, Regular Rhythm, Normal S1, Normal S2, No murmurs, No rub noted, No Gallop Abdomen: Soft, Non-Distended, Hypoactive Bowel Sounds, - - no guarding with palpation Extremities: No clubbing, No cyanosis, No edema, Diminished Peripheral Pulses Skin: No rashes, No breakdown, - - several tattoos Musculoskeletal: No Muscle Wasting Neurological: - - moving all extremities, no facial asymmetry Psych/Mental Status: - - no family present at bedside. sedated and intubated, unable to respond to commands and questions at the present time Vital Signs Temp Pulse Resp BP Pulse Ox 98.8 F 74 18 139/62 H 97 09/14/17 08:00 09/14/17 09:00 09/14/17 09:00 09/14/17 09:00 09/14/17 09:00 Oxygen Delivery Method Mechanical Ventilator Weight: 145 lb 11.609 oz Body Mass Index (BMI) 25.8 Intake and Output for Last 24 Hours 09/12/17 09/13/17 09/14/17 23:59 23:59 23:59 Intake Total 425 / 425 Output Total 950 / 950 Balance -525 / -525 Laboratory Tests Past 24 Hrs 09/14/17 09/14/17 09/14/17 01:08 03:10 03:10 WBC 10.7 RBC 4.89 Hgb 14.8 Hct 49.2 H MCV 100.6 H MCH 30.3 MCHC 30.1 L RDW 16.9 H RDW Differential 59.7 H Plt Count 167 MPV 10.9 Immature Gran % (Auto) 1.400 H Neut % (Auto) 82.2 H Lymph % (Auto) 10.9 L Canadian % (Auto) 4.9 Eos % (Auto) 0.3 Baso % (Auto) 0.3 Absolute Neuts (auto) 8.8 H Absolute Lymphs (auto) 1.16 Total Counted Not Reportable Nucleated RBC % 2.4 Absolute Retic 0.25 PT 14.5 INR 1.1 Specimen Type ART Sample Site R Radial pH 7.40 Bicarbonate Actual 31.2 H POC Total CO2 33 Base Excess 6 H O2 Saturation 98 O2 % 50 ABG pCO2 50.6 H ABG pO2 106 H Respiration Rate 14 O2 Delivery Device Vent Vent Mode A-C Tidal Volume 450 POC PEEP 5 Blood Gas Notified Whom ED MD Blood Gas Notified Time 107 Sodium Potassium Chloride Carbon Dioxide Anion Gap BUN Creatinine Estim Creat Clear Calc Est GFR (MDRD) Af Amer Est GFR (MDRD) Non-Af BUN/Creatinine Ratio Glucose Calcium Total Bilirubin AST ALT Alkaline Phosphatase Ammonia Total Protein Albumin Globulin Albumin/Globulin Ratio TSH Urine Opiates Screen Urine Methadone Screen Ur Barbiturates Screen Ur Phencyclidine Scrn Ur Amphetamines Screen U Methamphetamin-MDMA U Benzodiazepines Scrn Urine Cocaine Screen U Cannabinoids Screen Ur Drug Screen Comment MRSA (PCR) 09/14/17 09/14/17 09/14/17 03:10 03:10 08:30 WBC RBC Hgb Hct MCV MCH MCHC RDW RDW Differential Plt Count MPV Immature Gran % (Auto) Neut % (Auto) Lymph % (Auto) Canadian % (Auto) Eos % (Auto) Baso % (Auto) Absolute Neuts (auto) Absolute Lymphs (auto) Total Counted Nucleated RBC % Absolute Retic PT INR Specimen Type Sample Site pH Bicarbonate Actual POC Total CO2 Base Excess O2 Saturation O2 % ABG pCO2 ABG pO2 Respiration Rate O2 Delivery Device Vent Mode Tidal Volume POC PEEP Blood Gas Notified Whom Blood Gas Notified Time Sodium 143 Potassium 5.3 H Chloride 102 Carbon Dioxide 33.0 H Anion Gap 8 BUN 36 H Creatinine 1.35 H Estim Creat Clear Calc 35.74 Est GFR (MDRD) Af Amer 51 L Est GFR (MDRD) Non-Af 42 L BUN/Creatinine Ratio 26.7 H Glucose 95 Calcium 8.2 L Total Bilirubin 1.10 H AST 29 ALT 19 Alkaline Phosphatase 69 Ammonia 29.0 Total Protein 6.5 Albumin 3.2 Globulin 3.3 Albumin/Globulin Ratio 1.0 TSH 1.38 Urine Opiates Screen Urine Methadone Screen Ur Barbiturates Screen Ur Phencyclidine Scrn Ur Amphetamines Screen U Methamphetamin-MDMA U Benzodiazepines Scrn Urine Cocaine Screen U Cannabinoids Screen Ur Drug Screen Comment MRSA (PCR) 09/14/17 09/14/17 08:30 08:35 WBC RBC Hgb Hct MCV MCH MCHC RDW RDW Differential Plt Count MPV Immature Gran % (Auto) Neut % (Auto) Lymph % (Auto) Canadian % (Auto) Eos % (Auto) Baso % (Auto) Absolute Neuts (auto) Absolute Lymphs (auto) Total Counted Nucleated RBC % Absolute Retic PT INR Specimen Type Sample Site pH Bicarbonate Actual POC Total CO2 Base Excess O2 Saturation O2 % ABG pCO2 ABG pO2 Respiration Rate O2 Delivery Device Vent Mode Tidal Volume POC PEEP Blood Gas Notified Whom Blood Gas Notified Time Sodium Potassium Chloride Carbon Dioxide Anion Gap BUN Creatinine Estim Creat Clear Calc Est GFR (MDRD) Af Amer Est GFR (MDRD) Non-Af BUN/Creatinine Ratio Glucose Calcium Total Bilirubin AST ALT Alkaline Phosphatase Ammonia Total Protein Albumin Globulin Albumin/Globulin Ratio TSH Urine Opiates Screen NEGATIVE Urine Methadone Screen NEGATIVE Ur Barbiturates Screen NEGATIVE Ur Phencyclidine Scrn NEGATIVE Ur Amphetamines Screen NEGATIVE U Methamphetamin-MDMA NEGATIVE U Benzodiazepines Scrn POSITIVE H Urine Cocaine Screen NEGATIVE U Cannabinoids Screen NEGATIVE Ur Drug Screen Comment MRSA (PCR) Pending Assessment/Plan Active and Suspected Problems Acute respiratory failure (Acute) Impressions 1. Acute respiratory failure with hypoxemia and hypercapnia and respiratory acidosis 2. metabolic encephalopathy 3. GUEM 4. hx of systolic CM with a 45% EF in February of 2017 5. Hemorrhagic CVA in February of 2017 - transferred to [facility] to see neurosurgery. Now with encephalomalacia in the R occipital and the left Paraietal lobes. CTA of the head and neck in February 2017 showed no significant areas of stenosis. 6. NSTEMI February 2017 when she was going through acute alcohol withdrawal 7. Hx of Alcoholism 8. Hyperkalemia 9. Upper GI bleed in February 2017 secondary to Jennifer-Torrez tear 10. Pulmonary hypertension Awaiting the respiratory panel Sputum culture ordered KATHLEEN and Spironolactone are on hold due to Hyperkalemia restart ASA Folic acid and thiamine supplements Start Seroquel 50 mg twice daily via the NG tube in anticipation of alcohol withdrawal/DT's Start TF Restart Coreg Famotidine for GI prophylaxis Recheck lab in the a.m. Check a BNP now and also urine sodium and urine creatinine. Continue aerosols and IV steroids. Continue Lovenox, SCDs and DANY hose for DVT prophylaxis I called the significant other and no one answered. I left a VM asking him to call me for information.....left my cell number. ? whether she is still drinking Code Visit Procedures: [id number] Prolonged InPt Service; first hour
[2017-09-14] MEDS: Enoxaparin 40 MG/0.4 ML Syringe SC (09:28)
--- NOTE | 2017-09-14 09:49 | PN_ITS ---
Patient Problems: Active and Suspected Problems Acute respiratory failure (Acute) Subjective: Patient is a 61-year-old female with a past medical history of systolic congestive heart failure(45% EF 02/2017) , hemorrhagic CVA (February 2017), COPD, pulmonary hypertension with a PA of 36 mmHg in February 2017, hyperlipidemia, DTs with alcohol withdrawal, alcoholism, upper GI bleed secondary to Jennifer-Torrez tear and coronary artery disease (NSTEMI in February 2017) who presented to the ED at [facility] on 09/14/17 with a complaint of generalized weakness, increased fatigue and confusion. Her daughter stated she had also had a cough and some diarrhea. Vital signs at presentation to the emergency room were temperature 97.3, pulse rate 71, blood pressure 88/45, respiratory rate 20 and she was 100% saturated on a nonrebreather and 97% saturated on a 2 L nasal cannula. Chest x- ray showed hyperinflation and radiology reported no pulmonary vascular congestion, pleural effusions or infiltrates. CT brain showed encephalomalacia in the right occipital lobe and left parietal lobe secondary to prior CVAs. There was no bleeding. White blood cell count was 10.6 with an unremarkable differential. Hemoglobin was 13.9 with an MCV of 102.4 and the platelet count was 199,000. ABG on a 4 L nasal cannula showed a pH of 7.05, PCO2 of 126 and a PO2 of 135. Serum bicarb was elevated at 35 and the potassium was elevated at 5.7. BUN was 39 and the creatinine was 1.55. Creat was 1.87 on 09/12 when she was seen in the ER and hydrated. Her baseline creatinine over the past year has ranged from 0.57 to 2.0. LFTs were unremarkable. The lactic acid was 0.7. Urine tox screen was positive for benzodiazepines but, she had Ativan in the ER for intubation. She was intubated for respiratory acidosis. Family was in agreement. She was admitted to the intensive care unit and started on high- dose intravenous steroids, aerosolized bronchodilators and propofol for sedation. Dr. Flannery was consulted to participate in management in the intensive care unit. EEG after the hemorrhagic CVA in February 2017 showed no epileptiform activity. There was generalized slowing. Ventilator Day #1 TMAX: Afebrile since admission Vital signs: Stable Fluid balance: -525 Urine output: 900 Weight: 145 lbs. 11 oz. All radiologic testing was reviewed: no pleural effusions, PVC per my review, no obvious infiltrates All labs were personally reviewed: Potassium remains mildly elevated at 5.3- Aldactone has been discontinued ABG today on a 50% FiO2, assist control, 5 PEEP shows pH to be 7.4, PCO2 50 and PO2 106. BUN is 36 and the creatinine is down to 1.35. Ammonia is within normal limits at 29. TSH is normal. Microbiology: Blood cultures and respiratory panel are pending. Objective: intubated and there is no family in the room - Physical Exam General: - - sedated and on mechical ventilation....she does arouse a little when I was examining her and then fell back to sleep. 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 Neck: Supple, No JVD, Negative Carotid Bruits, No Nuchal Rigidity Lungs: Clear to auscultation - Anterior and lateral, No rhonchi, No wheeze, No rales, Diminished Cardiovascular: Regular rate, Regular Rhythm, Normal S1, Normal S2, No murmurs, No rub noted, No Gallop Abdomen: Soft, Non-Distended, Hypoactive Bowel Sounds, - - no guarding with palpation Extremities: No clubbing, No cyanosis, No edema, Diminished Peripheral Pulses Skin: No rashes, No breakdown, - - several tattoos Musculoskeletal: No Muscle Wasting Neurological: - - moving all extremities, no facial asymmetry Psych/Mental Status: - - no family present at bedside. sedated and intubated, unable to respond to commands and questions at the present time Vital Signs Temp Pulse Resp BP Pulse Ox 98.8 F 74 18 139/62 H 97 09/14/17 08:00 09/14/17 09:00 09/14/17 09:00 09/14/17 09:00 09/14/17 09:00 Oxygen Delivery Method Mechanical Ventilator Weight: 145 lb 11.609 oz Body Mass Index (BMI) 25.8 Intake and Output for Last 24 Hours 09/12/17 09/13/17 09/14/17 23:59 23:59 23:59 Intake Total 425 / 425 Output Total 950 / 950 Balance -525 / -525 Laboratory Tests Past 24 Hrs 09/14/17 09/14/17 09/14/17 01:08 03:10 03:10 WBC 10.7 RBC 4.89 Hgb 14.8 Hct 49.2 H MCV 100.6 H MCH 30.3 MCHC 30.1 L RDW 16.9 H RDW Differential 59.7 H Plt Count 167 MPV 10.9 Immature Gran % (Auto) 1.400 H Neut % (Auto) 82.2 H Lymph % (Auto) 10.9 L Hitchcock % (Auto) 4.9 Eos % (Auto) 0.3 Baso % (Auto) 0.3 Absolute Neuts (auto) 8.8 H Absolute Lymphs (auto) 1.16 Total Counted Not Reportable Nucleated RBC % 2.4 Absolute Retic 0.25 PT 14.5 INR 1.1 Specimen Type ART Sample Site R Radial pH 7.40 Bicarbonate Actual 31.2 H POC Total CO2 33 Base Excess 6 H O2 Saturation 98 O2 % 50 ABG pCO2 50.6 H ABG pO2 106 H Respiration Rate 14 O2 Delivery Device Vent Vent Mode A-C Tidal Volume 450 POC PEEP 5 Blood Gas Notified Whom ED MD Blood Gas Notified Time 107 Sodium Potassium Chloride Carbon Dioxide Anion Gap BUN Creatinine Estim Creat Clear Calc Est GFR (MDRD) Af Amer Est GFR (MDRD) Non-Af BUN/Creatinine Ratio Glucose Calcium Total Bilirubin AST ALT Alkaline Phosphatase Ammonia Total Protein Albumin Globulin Albumin/Globulin Ratio TSH Urine Opiates Screen Urine Methadone Screen Ur Barbiturates Screen Ur Phencyclidine Scrn Ur Amphetamines Screen U Methamphetamin-MDMA U Benzodiazepines Scrn Urine Cocaine Screen U Cannabinoids Screen Ur Drug Screen Comment MRSA (PCR) 09/14/17 09/14/17 09/14/17 03:10 03:10 08:30 WBC RBC Hgb Hct MCV MCH MCHC RDW RDW Differential Plt Count MPV Immature Gran % (Auto) Neut % (Auto) Lymph % (Auto) Hitchcock % (Auto) Eos % (Auto) Baso % (Auto) Absolute Neuts (auto) Absolute Lymphs (auto) Total Counted Nucleated RBC % Absolute Retic PT INR Specimen Type Sample Site pH Bicarbonate Actual POC Total CO2 Base Excess O2 Saturation O2 % ABG pCO2 ABG pO2 Respiration Rate O2 Delivery Device Vent Mode Tidal Volume POC PEEP Blood Gas Notified Whom Blood Gas Notified Time Sodium 143 Potassium 5.3 H Chloride 102 Carbon Dioxide 33.0 H Anion Gap 8 BUN 36 H Creatinine 1.35 H Estim Creat Clear Calc 35.74 Est GFR (MDRD) Af Amer 51 L Est GFR (MDRD) Non-Af 42 L BUN/Creatinine Ratio 26.7 H Glucose 95 Calcium 8.2 L Total Bilirubin 1.10 H AST 29 ALT 19 Alkaline Phosphatase 69 Ammonia 29.0 Total Protein 6.5 Albumin 3.2 Globulin 3.3 Albumin/Globulin Ratio 1.0 TSH 1.38 Urine Opiates Screen Urine Methadone Screen Ur Barbiturates Screen Ur Phencyclidine Scrn Ur Amphetamines Screen U Methamphetamin-MDMA U Benzodiazepines Scrn Urine Cocaine Screen U Cannabinoids Screen Ur Drug Screen Comment MRSA (PCR) 09/14/17 09/14/17 08:30 08:35 WBC RBC Hgb Hct MCV MCH MCHC RDW RDW Differential Plt Count MPV Immature Gran % (Auto) Neut % (Auto) Lymph % (Auto) Hitchcock % (Auto) Eos % (Auto) Baso % (Auto) Absolute Neuts (auto) Absolute Lymphs (auto) Total Counted Nucleated RBC % Absolute Retic PT INR Specimen Type Sample Site pH Bicarbonate Actual POC Total CO2 Base Excess O2 Saturation O2 % ABG pCO2 ABG pO2 Respiration Rate O2 Delivery Device Vent Mode Tidal Volume POC PEEP Blood Gas Notified Whom Blood Gas Notified Time Sodium Potassium Chloride Carbon Dioxide Anion Gap BUN Creatinine Estim Creat Clear Calc Est GFR (MDRD) Af Amer Est GFR (MDRD) Non-Af BUN/Creatinine Ratio Glucose Calcium Total Bilirubin AST ALT Alkaline Phosphatase Ammonia Total Protein Albumin Globulin Albumin/Globulin Ratio TSH Urine Opiates Screen NEGATIVE Urine Methadone Screen NEGATIVE Ur Barbiturates Screen NEGATIVE Ur Phencyclidine Scrn NEGATIVE Ur Amphetamines Screen NEGATIVE U Methamphetamin-MDMA NEGATIVE U Benzodiazepines Scrn POSITIVE H Urine Cocaine Screen NEGATIVE U Cannabinoids Screen NEGATIVE Ur Drug Screen Comment MRSA (PCR) Pending Assessment/Plan Active and Suspected Problems Acute respiratory failure (Acute) Impressions 1. Acute respiratory failure with hypoxemia and hypercapnia and respiratory acidosis 2. metabolic encephalopathy 3. GUME 4. hx of systolic CM with a 45% EF in February of 2017 5. Hemorrhagic CVA in February of 2017 - transferred to [facility] to see neurosurgery. Now with encephalomalacia in the R occipital and the left Paraietal lobes. CTA of the head and neck in February 2017 showed no significant areas of stenosis. 6. NSTEMI February 2017 when she was going through acute alcohol withdrawal 7. Hx of Alcoholism 8. Hyperkalemia 9. Upper GI bleed in February 2017 secondary to Jennifer-Torrez tear 10. Pulmonary hypertension Awaiting the respiratory panel Sputum culture ordered KATHLEEN and Spironolactone are on hold due to Hyperkalemia restart ASA Folic acid and thiamine supplements Start Seroquel 50 mg twice daily via the NG tube in anticipation of alcohol withdrawal/DT's Start TF Restart Coreg Famotidine for GI prophylaxis Recheck lab in the a.m. Check a BNP now and also urine sodium and urine creatinine. Continue aerosols and IV steroids. Continue Lovenox, SCDs and DANY hose for DVT prophylaxis I called the significant other and no one answered. I left a VM asking him to call me for information.....left my cell number. ? whether she is still drinking Code Visit Procedures: [id number] Prolonged InPt Service; first hour
[2017-09-14] MEDS: QUEtiapine 25 MG Tablet 50 MG NG (11:03)
[2017-09-14] MEDS: Famotidine 20 MG Tablet GT (11:04)
[2017-09-14 11:06] LABS: Alcohol, Blood (Medical)-Serum < 3.0 mg/dL
[2017-09-14] MEDS: Carvedilol 6.25 MG Tablet NG (11:06)
[2017-09-14] MEDS: Aspirin 81 MG TAB.CHEW NG (11:06)
[2017-09-14 11:36] LABS: M R Staph aureus DNA By PCR Negative (Negative); Probe Check PASS; Specimen Processing Control PASS
[2017-09-14] MEDS: Vital AF 1.2 Cal Liquid 1,000 ML 60 ML GT (12:46)
[2017-09-14 12:59] LABS: Urine Sodium 41 mmol/L (Not Establ.)
[2017-09-14 13:26] LABS: BNP,B-Type NATRIURETIC PEPTIDE 820.9 pg/mL (0-100)
[2017-09-14 18:16] LABS: Bedside Glucose 182 mg/dL (70-110)
[2017-09-14] MEDS: Lactated Ringers 1,000 ML 999 ML IV (19:56)
--- NOTE | 2017-09-14 20:30 | RAD_ITS ---
STUDY: X-RAY CHEST REASON FOR EXAM: Female, 61 years old. Possible aspiration, hypoxemia TECHNIQUE: Single AP portable view of the chest. COMPARISON: Prior study of earlier this date 3:58 AM FINDINGS: motion picture actor leads are present. A nasogastric tube is present with the tip in the abdomen out of the [id number] of this study. There is an endotracheal tube with the tip 4.3 cm proximal to the claude. There is a patchy infiltrate of the right lower lobe. The left lung is clear. There is no demonstrated pleural abnormality. Normal size heart. Normal mediastinum and jacinto. Normal visualized pulmonary arteries. Normal visualized aortic arch and descending thoracic aorta. Normal visualized thoracic spine. Normal visualized ribs, clavicles, and shoulders. There is no demonstrated abnormality of the visualized soft tissue structures of the upper abdomen. RAD/Chest 1 View (Portable) IMPRESSION: There is an ill-defined patchy infiltrate of the right lung base which may represent pneumonic process or atelectasis. Nasogastric and endotracheal tubes appearing in adequate position. Electronically Signed: James Jj MD at 21:31 EDT , Service support ,
[2017-09-14 21:30] LABS: Absolute Lymphocyte Count 0.67 X10^3/ul (0.83-4.51); Absolute Neutrophil Count 10.1 X10^3/uL (2.0-7.7); Hematocrit 40.6 % (37-47); Hemoglobin 12.6 g/dl (12.0-15.0); Lymphocyte # 0.67 X10^3/ul (4.0); Lymphocyte % 5.7 % (19-41); Mean Corpuscular Hgb 29.6 pg (27.0-32.0); Mean Corpuscular Volume 95.3 fL (81-99); Mean Platelet Vol. 11.1 fl (6.2-12.0); Monocyte% 7.7 % (0-10); Neutrophil # 10.09 X10^3/uL (2.7-7.7); Neutrophil % 86.2 % (47-70); POSITIVE COUNT NO; POSITIVE DIFFERENTIAL NO; POSITIVE MORPHOLOGY NO; Platelet Count 177 K/mm3 (150-450); RBC Distribution Width CV 17.5 % (11.6-14.6); RBC Distribution Width SD 56.5 fl (35.1-43.9); Red Blood Count 4.26 M/mm3 (4.2-5.4); White Blood Count 11.7 K/mm3 (4.4-11.0)
[2017-09-14 21:42] LABS: Anion Gap 7 (5-15); BUN 31 mg/dL (7-18); BUN/Creat Ratio 33.8 RATIO (10-20); Calcium,Total 7.8 mg/dL (8.5-10.1); Chloride 106 mmol/L (98-107); Creatinine, Serum 0.92 mg/dL (0.55-1.02); EST Glomerular Filtration Rate 66 mL/min (>60); Est Glom Filt Rate - Afr Amer 80 mL/min (>60); Estimated Creatinine Clearance 52.45 ml/min; Glucose 168 mg/dL (74-106); Potassium 4.3 mmol/L (3.5-5.1); Sodium Level 142 mmol/L (136-145)
[2017-09-15] VITALS (35 sets, daily range): BP systolic 87–166; BP diastolic 38–104; PULSE 66–100; RESP 14–88; TEMP 36–37.5; O2SAT 90–100
[2017-09-15] MEDS: Ipratropium/Albuterol Sulfate 3 ML AMPUL.NEB INHALATION ×6 (02:53→23:28)
[2017-09-15 04:49] LABS: Hematocrit 41.9 % (37-47); Hemoglobin 13.4 g/dl (12.0-15.0); Mean Corpuscular Hgb 30.2 pg (27.0-32.0); Mean Corpuscular Volume 94.4 fL (81-99); Mean Platelet Vol. 10.9 fl (6.2-12.0); Platelet Count 187 K/mm3 (150-450); RBC Distribution Width SD 56.9 fl (35.1-43.9); Red Blood Count 4.44 M/mm3 (4.2-5.4); White Blood Count 16.8 K/mm3 (4.4-11.0)
[2017-09-15 04:50] LABS: Scan Indicated on CBC? Y/N NO
[2017-09-15 05:05] LABS: ALB/GLOB Ratio 0.8 RATIO (0.9-2.4); AST(SGOT) 31 U/L (15-37); Alanine Aminotransfer ALT/SGPT 18 U/L (13-56); Albumin, Serum 2.7 g/dL (3.2-5.0); Alkaline Phosphatase 57 U/L (45-117); Anion Gap 7 (5-15); BUN 31 mg/dL (7-18); Calcium,Total 8.1 mg/dL (8.5-10.1); Chloride 107 mmol/L (98-107); Cholesterol 91 mg/dL (200); Creatinine, Serum 0.94 mg/dL (0.55-1.02); EST Glomerular Filtration Rate 64 mL/min (>60); Est Glom Filt Rate - Afr Amer 78 mL/min (>60); Estimated Creatinine Clearance 51.33 ml/min; Globulin 3.3 g/dL (2.2-4.2); Glucose 169 mg/dL (74-106); High Density Lipoprotein 34 mg/dL; Magnesium 2.1 mg/dL (1.6-2.6); Phosphorus 1.7 mg/dL (2.5-4.9); Potassium 4.1 mmol/L (3.5-5.1); Sodium Level 144 mmol/L (136-145); Triglycerides 79 mg/dL; Very Low Density Lipoprotein 16 mg/dL (5-40)
--- NOTE | 2017-09-15 05:55 | EKG12_ITS ---
Test Reason : AM EKG Blood Pressure : / mmHG Vent. Rate : 084 BPM Atrial Rate : 084 BPM P-R Int : 110 ms QRS Dur : 084 ms QT Int : 402 ms P-R-T Axes : 071 043 026 degrees QTc Int : 475 ms Sinus rhythm with short IN Otherwise normal ECG When compared with ECG of 13-SEP-2017 22:56, MANUAL COMPARISON REQUIRED, DATA IS UNCONFIRMED Confirmed by MOISES MENDES, LINDSEY ([id number]), news assignment editor AJ AYOUB ([id number]) on 09/17/2017 1:55:00 PM Referred By: JORDY Confirmed By:LINDSEY DE LEON MD
--- NOTE | 2017-09-15 05:55 | RAD_ITS ---
STUDY: X-RAY CHEST REASON FOR EXAM: Female, 61 years old. Shortness of breath, intubated TECHNIQUE: Single AP portable view of the chest. COMPARISON: 09/14/2017. FINDINGS: Endotracheal tube tip 3 cm superior to the claude. The enteric tube courses inferior to the left diaphragm, its tip is not included or visualized. There are superimposed monitor leads. Minimal indistinct contour of the right diaphragm, mild right pleural effusion. There are areas of hyperinflation. Mild opacification right base. There is no demonstrated pleural abnormality. Normal size heart. Normal mediastinum and jacinto. Normal visualized pulmonary arteries. Normal visualized aortic arch and descending thoracic aorta. Normal visualized thoracic spine. Normal visualized ribs, clavicles, and shoulders. There is no demonstrated abnormality of the visualized soft tissue structures of the upper abdomen. RAD/Chest 1 View (Portable) IMPRESSION: Airspace disease right base and small right pleural effusion possible mild pneumonia on COPD. The lines are in adequate position. Electronically Signed: Ayah Coffman MD at 6:40 EDT , Service support ,
[2017-09-15] MEDS: 0.9% NaCl Peripheral Flush Adult/Peds IV ×2 (06:01→22:20)
--- NOTE | 2017-09-15 06:24 | PN_ITS ---
Subjective: The patient was seen and examined at the bedside this morning. Events from the last 24 hours have been reviewed. The patient currently has a low-grade fever but remains hemodynamically stable. She did pass her spontaneous breathing trial this morning. She is alert, cooperative and following commands. The patient did develop bradycardia yesterday along with QT prolongation, for which her Coreg and Seroquel were discontinued. Her blood pressures were also noted to be labile last evening, for which she received a one-time fluid bolus. Her blood pressures have subsequently improved. The patient was empirically started on antibiotics this morning due to the presence of gram-positive cocci and diplococci isolated from the patient's sputum Gram stain. Respiratory therapy reports no significant respiratory secretions. Objective: The patient's most recent lab work, culture data and imaging studies have all been personally reviewed. Blood cultures are pending. Respiratory viral panel was negative. Sputum Gram stain revealed 4+ gram-positive cocci and diplococci. Surface echocardiogram completed in February 2017 revealed mild global LV systolic dysfunction with an ejection fraction of 45%. Pulmonary artery systolic pressure was estimated to be 36 mmHg. General: Alert, Cooperative, - - Remains intubated. Currently tolerating CPAP. HEENT: Atraumatic, PERRLA, Normocephalic Oral: Moist Mucosa, No Gingival or Mucosal Lesions/ Ulcerations, - - Endotracheal and OG tubes in place Neck: Supple, No Nodes, Trachea Midline Lungs: No rhonchi, No wheeze, No rales, Diminished Cardiovascular: Regular rate, Regular Rhythm, Normal S1, Normal S2, No murmurs, No rub noted, No Gallop Abdomen: Bowel Sounds Present, Soft, Non Tender, Non-Distended Extremities: No clubbing, No cyanosis, No edema Skin: No rashes, No breakdown Musculoskeletal: No Muscle Wasting Lymphatic: No Cervical, Supraclavicular, or Inguinal Adenopathy Neurological: Neuro grossly intact, - - Alert and following commands appropriately Vital Signs Temp Pulse Resp BP Pulse Ox 99.2 F H 99 15 136/69 H 95 09/15/17 06:00 09/15/17 06:00 09/15/17 06:00 09/15/17 06:00 09/15/17 06:00 Oxygen Delivery Method Mechanical Ventilator Weight: 147 lb 7.828 oz Body Mass Index (BMI) 25.8 Intake and Output for Last 24 Hours 09/13/17 09/14/17 09/15/17 23:59 23:59 23:59 Intake Total 1285 / 1285 1959.9 / 1959.9 Output Total 1700 / 1700 500 / 500 Balance -415 / -415 1459.9 / 1459.9 Labs (Last 48 Hours) 09/14/17 09/14/17 09/14/17 01:08 03:10 03:10 WBC 10.7 RBC 4.89 Hgb 14.8 Hct 49.2 H MCV 100.6 H MCH 30.3 MCHC 30.1 L RDW 16.9 H RDW Differential 59.7 H Plt Count 167 MPV 10.9 Immature Gran % (Auto) 1.400 H Neut % (Auto) 82.2 H Lymph % (Auto) 10.9 L [place] % (Auto) 4.9 Eos % (Auto) 0.3 Baso % (Auto) 0.3 Absolute Neuts (auto) 8.8 H Absolute Lymphs (auto) 1.16 Total Counted Not Reportable Nucleated RBC % 2.4 Absolute Retic 0.25 PT 14.5 INR 1.1 Specimen Type ART Sample Site R Radial pH 7.40 Bicarbonate Actual 31.2 H POC Total CO2 33 Base Excess 6 H O2 Saturation 98 O2 % 50 ABG pCO2 50.6 H ABG pO2 106 H Respiration Rate 14 O2 Delivery Device Vent Vent Mode A-C Tidal Volume 450 POC PEEP 5 Blood Gas Notified Whom ED Blood Gas Notified Time 107 Sodium Potassium Chloride Carbon Dioxide Anion Gap BUN Creatinine Estim Creat Clear Calc Est GFR (MDRD) Af Amer Est GFR (MDRD) Non-Af BUN/Creatinine Ratio Glucose Calcium Phosphorus Magnesium Total Bilirubin AST ALT Alkaline Phosphatase Ammonia Troponin I B-Natriuretic Peptide Total Protein Albumin Globulin Albumin/Globulin Ratio Triglycerides Cholesterol LDL Cholesterol VLDL Cholesterol HDL Cholesterol TSH Ur Random Sodium Urine Creatinine Urine Opiates Screen Urine Methadone Screen Ur Barbiturates Screen Ur Phencyclidine Scrn Ur Amphetamines Screen U Methamphetamin-MDMA U Benzodiazepines Scrn Urine Cocaine Screen U Cannabinoids Screen Ur Drug Screen Comment Ethyl Alcohol MRSA (PCR) POC Glucose 09/14/17 09/14/17 09/14/17 03:10 03:10 03:10 WBC RBC Hgb Hct MCV MCH MCHC RDW RDW Differential Plt Count MPV Immature Gran % (Auto) Neut % (Auto) Lymph % (Auto) [place] % (Auto) Eos % (Auto) Baso % (Auto) Absolute Neuts (auto) Absolute Lymphs (auto) Total Counted Nucleated RBC % Absolute Retic PT INR Specimen Type Sample Site pH Bicarbonate Actual POC Total CO2 Base Excess O2 Saturation O2 % ABG pCO2 ABG pO2 Respiration Rate O2 Delivery Device Vent Mode Tidal Volume POC PEEP Blood Gas Notified Whom Blood Gas Notified Time Sodium 143 Potassium 5.3 H Chloride 102 Carbon Dioxide 33.0 H Anion Gap 8 BUN 36 H Creatinine 1.35 H Estim Creat Clear Calc 35.74 Est GFR (MDRD) Af Amer 51 L Est GFR (MDRD) Non-Af 42 L BUN/Creatinine Ratio 26.7 H Glucose 95 Calcium 8.2 L Phosphorus Magnesium Total Bilirubin 1.10 H AST 29 ALT 19 Alkaline Phosphatase 69 Ammonia Troponin I B-Natriuretic Peptide 820.9 H Total Protein 6.5 Albumin 3.2 Globulin 3.3 Albumin/Globulin Ratio 1.0 Triglycerides Cholesterol LDL Cholesterol VLDL Cholesterol HDL Cholesterol TSH 1.38 Ur Random Sodium Urine Creatinine Urine Opiates Screen Urine Methadone Screen Ur Barbiturates Screen Ur Phencyclidine Scrn Ur Amphetamines Screen U Methamphetamin-MDMA U Benzodiazepines Scrn Urine Cocaine Screen U Cannabinoids Screen Ur Drug Screen Comment Ethyl Alcohol MRSA (PCR) POC Glucose 09/14/17 09/14/17 09/14/17 03:10 08:30 08:30 WBC RBC Hgb Hct MCV MCH MCHC RDW RDW Differential Plt Count MPV Immature Gran % (Auto) Neut % (Auto) Lymph % (Auto) [place] % (Auto) Eos % (Auto) Baso % (Auto) Absolute Neuts (auto) Absolute Lymphs (auto) Total Counted Nucleated RBC % Absolute Retic PT INR Specimen Type Sample Site pH Bicarbonate Actual POC Total CO2 Base Excess O2 Saturation O2 % ABG pCO2 ABG pO2 Respiration Rate O2 Delivery Device Vent Mode Tidal Volume POC PEEP Blood Gas Notified Whom Blood Gas Notified Time Sodium Potassium Chloride Carbon Dioxide Anion Gap BUN Creatinine Estim Creat Clear Calc Est GFR (MDRD) Af Amer Est GFR (MDRD) Non-Af BUN/Creatinine Ratio Glucose Calcium Phosphorus Magnesium Total Bilirubin AST ALT Alkaline Phosphatase Ammonia 29.0 Troponin I 0.03 B-Natriuretic Peptide Total Protein Albumin Globulin Albumin/Globulin Ratio Triglycerides Cholesterol LDL Cholesterol VLDL Cholesterol HDL Cholesterol TSH Ur Random Sodium Urine Creatinine Urine Opiates Screen Urine Methadone Screen Ur Barbiturates Screen Ur Phencyclidine Scrn Ur Amphetamines Screen U Methamphetamin-MDMA U Benzodiazepines Scrn Urine Cocaine Screen U Cannabinoids Screen Ur Drug Screen Comment Ethyl Alcohol MRSA (PCR) Negative POC Glucose 09/14/17 09/14/17 09/14/17 08:35 08:35 08:35 WBC RBC Hgb Hct MCV MCH MCHC RDW RDW Differential Plt Count MPV Immature Gran % (Auto) Neut % (Auto) Lymph % (Auto) [place] % (Auto) Eos % (Auto) Baso % (Auto) Absolute Neuts (auto) Absolute Lymphs (auto) Total Counted Nucleated RBC % Absolute Retic PT INR Specimen Type Sample Site pH Bicarbonate Actual POC Total CO2 Base Excess O2 Saturation O2 % ABG pCO2 ABG pO2 Respiration Rate O2 Delivery Device Vent Mode Tidal Volume POC PEEP Blood Gas Notified Whom Blood Gas Notified Time Sodium Potassium Chloride Carbon Dioxide Anion Gap BUN Creatinine Estim Creat Clear Calc Est GFR (MDRD) Af Amer Est GFR (MDRD) Non-Af BUN/Creatinine Ratio Glucose Calcium Phosphorus Magnesium Total Bilirubin AST ALT Alkaline Phosphatase Ammonia Troponin I B-Natriuretic Peptide Total Protein Albumin Globulin Albumin/Globulin Ratio Triglycerides Cholesterol LDL Cholesterol VLDL Cholesterol HDL Cholesterol TSH Ur Random Sodium 41 Urine Creatinine 64.10 Urine Opiates Screen NEGATIVE Urine Methadone Screen NEGATIVE Ur Barbiturates Screen NEGATIVE Ur Phencyclidine Scrn NEGATIVE Ur Amphetamines Screen NEGATIVE U Methamphetamin-MDMA NEGATIVE U Benzodiazepines Scrn POSITIVE H Urine Cocaine Screen NEGATIVE U Cannabinoids Screen NEGATIVE Ur Drug Screen Comment Ethyl Alcohol MRSA (PCR) POC Glucose 09/14/17 09/14/17 09/14/17 10:30 13:30 17:30 WBC RBC Hgb Hct MCV MCH MCHC RDW RDW Differential Plt Count MPV Immature Gran % (Auto) Neut % (Auto) Lymph % (Auto) [place] % (Auto) Eos % (Auto) Baso % (Auto) Absolute Neuts (auto) Absolute Lymphs (auto) Total Counted Nucleated RBC % Absolute Retic PT INR Specimen Type Sample Site pH Bicarbonate Actual POC Total CO2 Base Excess O2 Saturation O2 % ABG pCO2 ABG pO2 Respiration Rate O2 Delivery Device Vent Mode Tidal Volume POC PEEP Blood Gas Notified Whom Blood Gas Notified Time Sodium Potassium Chloride Carbon Dioxide Anion Gap BUN Creatinine Estim Creat Clear Calc Est GFR (MDRD) Af Amer Est GFR (MDRD) Non-Af BUN/Creatinine Ratio Glucose Calcium Phosphorus Magnesium Total Bilirubin AST ALT Alkaline Phosphatase Ammonia Troponin I 0.09 H 0.08 H B-Natriuretic Peptide Total Protein Albumin Globulin Albumin/Globulin Ratio Triglycerides Cholesterol LDL Cholesterol VLDL Cholesterol HDL Cholesterol TSH Ur Random Sodium Urine Creatinine Urine Opiates Screen Urine Methadone Screen Ur Barbiturates Screen Ur Phencyclidine Scrn Ur Amphetamines Screen U Methamphetamin-MDMA U Benzodiazepines Scrn Urine Cocaine Screen U Cannabinoids Screen Ur Drug Screen Comment Ethyl Alcohol < 3.0 MRSA (PCR) POC Glucose 09/14/17 09/14/17 09/14/17 18:09 21:15 21:15 WBC 11.7 H RBC 4.26 Hgb 12.6 Hct 40.6 MCV 95.3 MCH 29.6 MCHC 31.0 L RDW 17.5 H RDW Differential 56.5 H Plt Count 177 MPV 11.1 Immature Gran % (Auto) 0.400 Neut % (Auto) 86.2 H Lymph % (Auto) 5.7 L [place] % (Auto) 7.7 Eos % (Auto) 0.0 Baso % (Auto) 0.0 Absolute Neuts (auto) 10.1 H Absolute Lymphs (auto) 0.67 L Total Counted Not Reportable Nucleated RBC % Absolute Retic PT INR Specimen Type Sample Site pH Bicarbonate Actual POC Total CO2 Base Excess O2 Saturation O2 % ABG pCO2 ABG pO2 Respiration Rate O2 Delivery Device Vent Mode Tidal Volume POC PEEP Blood Gas Notified Whom Blood Gas Notified Time Sodium 142 Potassium 4.3 Chloride 106 Carbon Dioxide 29.0 Anion Gap 7 BUN 31 H Creatinine 0.92 Estim Creat Clear Calc 52.45 Est GFR (MDRD) Af Amer 80 Est GFR (MDRD) Non-Af 66 BUN/Creatinine Ratio 33.8 H Glucose 168 H Calcium 7.8 L Phosphorus Magnesium Total Bilirubin AST ALT Alkaline Phosphatase Ammonia Troponin I B-Natriuretic Peptide Total Protein Albumin Globulin Albumin/Globulin Ratio Triglycerides Cholesterol LDL Cholesterol VLDL Cholesterol HDL Cholesterol TSH Ur Random Sodium Urine Creatinine Urine Opiates Screen Urine Methadone Screen Ur Barbiturates Screen Ur Phencyclidine Scrn Ur Amphetamines Screen U Methamphetamin-MDMA U Benzodiazepines Scrn Urine Cocaine Screen U Cannabinoids Screen Ur Drug Screen Comment Ethyl Alcohol MRSA (PCR) POC Glucose 182 H 09/14/17 09/15/17 09/15/17 23:55 04:30 04:30 WBC 16.8 H RBC 4.44 Hgb 13.4 Hct 41.9 MCV 94.4 MCH 30.2 MCHC 32.0 RDW 18.0 H RDW Differential 56.9 H Plt Count 187 MPV 10.9 Immature Gran % (Auto) Neut % (Auto) Lymph % (Auto) [place] % (Auto) Eos % (Auto) Baso % (Auto) Absolute Neuts (auto) Absolute Lymphs (auto) Total Counted Nucleated RBC % Absolute Retic PT INR Specimen Type Sample Site pH Bicarbonate Actual POC Total CO2 Base Excess O2 Saturation O2 % ABG pCO2 ABG pO2 Respiration Rate O2 Delivery Device Vent Mode Tidal Volume POC PEEP Blood Gas Notified Whom Blood Gas Notified Time Sodium 144 Potassium 4.1 Chloride 107 Carbon Dioxide 30.0 Anion Gap 7 BUN 31 H Creatinine 0.94 Estim Creat Clear Calc 51.33 Est GFR (MDRD) Af Amer 78 Est GFR (MDRD) Non-Af 64 BUN/Creatinine Ratio 33.0 H Glucose 169 H Calcium 8.1 L Phosphorus 1.7 L Magnesium 2.1 Total Bilirubin 0.50 AST 31 ALT 18 Alkaline Phosphatase 57 Ammonia Troponin I 0.06 B-Natriuretic Peptide Total Protein 6.0 L Albumin 2.7 L Globulin 3.3 Albumin/Globulin Ratio 0.8 L Triglycerides 79 Cholesterol 91 LDL Cholesterol 41 VLDL Cholesterol 16 HDL Cholesterol 34 L TSH Ur Random Sodium Urine Creatinine Urine Opiates Screen Urine Methadone Screen Ur Barbiturates Screen Ur Phencyclidine Scrn Ur Amphetamines Screen U Methamphetamin-MDMA U Benzodiazepines Scrn Urine Cocaine Screen U Cannabinoids Screen Ur Drug Screen Comment Ethyl Alcohol MRSA (PCR) POC Glucose Microbiology 09/14/17 11:05 Sputum, Induced/Lukens Gram Stain - Final 09/14/17 07:08 Mucosa - Nose Respiratory Panel (PCR) - Final Clinical Impression(s) from Imaging Studies Brain CT 09/13/17 22:04 IMPRESSION: Regions of encephalomalacia consistent with old infarcts of the right occipital and left parietal lobes. These appear stable in the interval from the previous study. There is no evidence of acute infarct or intracranial hemorrhage. If acute infarct is clinically suspected, MRI may be helpful for further evaluation at this time. Electronically Signed: James Jj MD at 22:53 EDT , Service support , Chest X-Ray 09/13/17 22:25 IMPRESSION: Calcified bilateral hilar and right mediastinal nodes. No acute cardiopulmonary disease process is seen. Electronically Signed: James Jj MD at 22:55 EDT , Service support , Chest X-Ray 09/13/17 23:45 IMPRESSION: Degenerative changes, as described above. No demonstrated acute cardiopulmonary process. Endotracheal tube is seen its tip is 3.2 cm superior to the claude. An OG tube is seen its tip is below the diaphragm is in good position. Electronically Signed: Peter De Guzman MD at 0:35 EDT Tel , Service support , Chest X-Ray 09/14/17 02:26 IMPRESSION: The lines are in adequate position. COPD. Indistinct right diaphragmatic contour could be due to mild pleural thickening and/or effusion. Electronically Signed: Ayah Coffman MD at 4:13 EDT , Service support , Chest X-Ray 09/14/17 20:30 IMPRESSION: There is an ill-defined patchy infiltrate of the right lung base which may represent pneumonic process or atelectasis. Nasogastric and endotracheal tubes appearing in adequate position. Electronically Signed: James Jj MD at 21:31 EDT , Service support , Chest X-Ray 09/15/17 05:55 IMPRESSION: Airspace disease right base and small right pleural effusion possible mild pneumonia on COPD. The lines are in adequate position. Electronically Signed: Ayah Coffman MD at 6:40 EDT , Service support , Assessment/Plan Active and Suspected Problems Acute respiratory failure (Acute) RECOMMENDATIONS: 1. Continue scheduled aerosol treatments and steroids. The patient can be transitioned to prednisone beginning tomorrow. 2. Due to the patient's sputum Gram stain results and low-grade fevers, will start empiric antimicrobial coverage. 3. The patient is appropriate for a trial of extubation this morning. 4. Once extubated, wean supplemental oxygen to maintain saturations 88-92%. 5. Perform bedside swallow evaluation and advance diet accordingly. 6. Additional phosphate repletion 7. Remove Fortune catheter. Encourage incentive spirometer use and mobilize patient as tolerated. 8. If the patient remains stable over the next several hours, she could be potentially transferred out of the intensive care unit this afternoon. IMPRESSIONS: 1. Acute on chronic respiratory failure/presumptive COPD of unknown severity The patient appears to have a baseline chronic CO2 retention, based upon the results of her last ABG. Her serum bicarbonate level has also been elevated since February 2017. The patient has a reported history of tobacco use, which is now in remission, and questionable COPD. However, PFTs have never been completed to confirm this assertion. She does not appear to be on any outpatient inhalers. Plain film chest imaging revealed no acute cardiopulmonary process. However, there is some concern that the patient may have aspirated in the days leading up to her hospitalization. Therefore, she was started on empiric antibiotics. The patient will remain on scheduled aerosol treatments and IV steroids. Will proceed with a trial of extubation this morning. Once extubated, supplemental oxygen can be weaned to maintain saturations at or above 90%. Bedside swallow evaluation can also be performed. 2. Hypercarbic encephalopathy Improved with invasive mechanical ventilation. Improvement in mentation was noted with normalization of the patient's acid-base disturbance. The patient may eventually require the initiation of some form of noninvasive positive pressure ventilation on an outpatient basis. 3. Acute kidney injury Resolved. Likely prerenal in etiology. Creatinine is improved following volume expansion. Urine output is appropriate. No indication for renal replacement therapy at this time. 4. Chronic Systolic heart failure/pulmonary hypertension Continue current medical management. Maintain euvolemic state. 5. Personal history of alcoholism/prior upper GI bleed Continue to monitor blood counts daily. No signs of alcohol intoxication or withdrawal. 6. Prior hemorrhagic stroke/coronary artery disease/hyperlipidemia/hypertension /tobacco dependence Complicates care, management, recovery and prognosis. Likely okay to continue home medications. Recommend physical therapy evaluation TIME: 45 minutes of critical care time, independent of procedures, was spent addressing the patient's acute on chronic respiratory failure, COPD of unknown severity, hypercarbic encephalopathy, congestive heart failure, pulmonary hypertension, review of all data and collaboration with the care team. ([id number]) Code Visit [id number]: [id number] Critical care first hour
--- NOTE | 2017-09-15 07:34 | PCM.PROGNOTE ---
Subjective: Antibiotic Day ##2 Zosyn, Vanco Ventilator Day #2 Extubated this AM. TMAX: T-max is 99.5 core Vital signs: Currently 97% on 2 L nasal cannula. Heart rate and blood pressure are stable. Fluid balance: +1045 since admission. Urine output: 1615 on 09/14/2017 Weight: 147 pounds and 8 ounces today, up from 145 pounds and 11 ounces on 313 All radiologic testing was reviewed: X-ray today shows possible infiltrate in the right base with a small pleural effusion. All labs were personally reviewed: White blood cell count today is 16.8. Hemoglobin is 13.4 and platelets are 187,000. Electrolytes are within normal limits. Creatinine is stable at 0.94 and the BUN is 31. Fractional excretion of sodium 07/07/2012 was 0.6%. Troponin was 0.09 at admission and the third troponin was 0.06. Phosphorus is low today at 1.7. Microbiology: Respiratory panel was negative. Sputum Gram stain has 4+ white blood cells with 4+ gram-positive diplococci and 4+ gram-positive cocci. MRSA nasal swab was negative. Telemetry: Objective: She is c/o a sore throat. No CP and no dyspnea at rest. - Physical Exam General: Cooperative, - - somewhat groggy still HEENT: Atraumatic, PERRLA Oral: Moist Mucosa, No Gingival or Mucosal Lesions/ Ulcerations Neck: Supple Lungs: Diminished, Wheezes - End expiratory wheezing Cardiovascular: Regular rate, Regular Rhythm, No murmurs, No Gallop Abdomen: Bowel Sounds Present, Soft, Non Tender Extremities: No clubbing, No cyanosis, No edema Skin: No rashes, No breakdown Neurological: Cranial nerves II-XII grossly intact, Neuro grossly intact Psych/Mental Status: Appropriate Vital Signs Temp Pulse Resp BP Pulse Ox 99.2 F H 79 15 136/69 H 97 09/15/17 06:00 09/15/17 07:21 09/15/17 07:21 09/15/17 06:00 09/15/17 07:21 Oxygen Flow Rate (L/min) 2 Oxygen Delivery Method Nasal Cannula Weight: 147 lb 7.828 oz Body Mass Index (BMI) 25.8 Intake and Output for Last 24 Hours 09/13/17 09/14/17 09/15/17 23:59 23:59 23:59 Intake Total 1285 / 1285 1959.9 / 1959.9 Output Total 1700 / 1700 500 / 500 Balance -415 / -415 1459.9 / 1459.9 Microbiology Past 72 Hours 09/14/17 11:05 Gram Stain - Final Sputum, Induced/Lukens 09/14/17 07:08 Respiratory Panel (PCR) - Final Mucosa - Nose Laboratory Tests Past 24 Hrs 09/14/17 09/14/17 09/14/17 03:10 03:10 08:30 WBC RBC Hgb Hct MCV MCH MCHC RDW RDW Differential Plt Count MPV Immature Gran % (Auto) Neut % (Auto) Lymph % (Auto) [place] % (Auto) Eos % (Auto) Baso % (Auto) Absolute Neuts (auto) Absolute Lymphs (auto) Total Counted Sodium Potassium Chloride Carbon Dioxide Anion Gap BUN Creatinine Estim Creat Clear Calc Est GFR (MDRD) Af Amer Est GFR (MDRD) Non-Af BUN/Creatinine Ratio Glucose Calcium Phosphorus Magnesium Total Bilirubin AST ALT Alkaline Phosphatase Ammonia 29.0 Troponin I 0.03 B-Natriuretic Peptide 820.9 H Total Protein Albumin Globulin Albumin/Globulin Ratio Triglycerides Cholesterol LDL Cholesterol VLDL Cholesterol HDL Cholesterol Ur Random Sodium Urine Creatinine Urine Opiates Screen Urine Methadone Screen Ur Barbiturates Screen Ur Phencyclidine Scrn Ur Amphetamines Screen U Methamphetamin-MDMA U Benzodiazepines Scrn Urine Cocaine Screen U Cannabinoids Screen Ur Drug Screen Comment Ethyl Alcohol MRSA (PCR) 09/14/17 09/14/17 09/14/17 08:30 08:35 08:35 WBC RBC Hgb Hct MCV MCH MCHC RDW RDW Differential Plt Count MPV Immature Gran % (Auto) Neut % (Auto) Lymph % (Auto) [place] % (Auto) Eos % (Auto) Baso % (Auto) Absolute Neuts (auto) Absolute Lymphs (auto) Total Counted Sodium Potassium Chloride Carbon Dioxide Anion Gap BUN Creatinine Estim Creat Clear Calc Est GFR (MDRD) Af Amer Est GFR (MDRD) Non-Af BUN/Creatinine Ratio Glucose Calcium Phosphorus Magnesium Total Bilirubin AST ALT Alkaline Phosphatase Ammonia Troponin I B-Natriuretic Peptide Total Protein Albumin Globulin Albumin/Globulin Ratio Triglycerides Cholesterol LDL Cholesterol VLDL Cholesterol HDL Cholesterol Ur Random Sodium Urine Creatinine 64.10 Urine Opiates Screen NEGATIVE Urine Methadone Screen NEGATIVE Ur Barbiturates Screen NEGATIVE Ur Phencyclidine Scrn NEGATIVE Ur Amphetamines Screen NEGATIVE U Methamphetamin-MDMA NEGATIVE U Benzodiazepines Scrn POSITIVE H Urine Cocaine Screen NEGATIVE U Cannabinoids Screen NEGATIVE Ur Drug Screen Comment Ethyl Alcohol MRSA (PCR) Negative 09/14/17 09/14/17 09/14/17 08:35 10:30 13:30 WBC RBC Hgb Hct MCV MCH MCHC RDW RDW Differential Plt Count MPV Immature Gran % (Auto) Neut % (Auto) Lymph % (Auto) [place] % (Auto) Eos % (Auto) Baso % (Auto) Absolute Neuts (auto) Absolute Lymphs (auto) Total Counted Sodium Potassium Chloride Carbon Dioxide Anion Gap BUN Creatinine Estim Creat Clear Calc Est GFR (MDRD) Af Amer Est GFR (MDRD) Non-Af BUN/Creatinine Ratio Glucose Calcium Phosphorus Magnesium Total Bilirubin AST ALT Alkaline Phosphatase Ammonia Troponin I 0.09 H B-Natriuretic Peptide Total Protein Albumin Globulin Albumin/Globulin Ratio Triglycerides Cholesterol LDL Cholesterol VLDL Cholesterol HDL Cholesterol Ur Random Sodium 41 Urine Creatinine Urine Opiates Screen Urine Methadone Screen Ur Barbiturates Screen Ur Phencyclidine Scrn Ur Amphetamines Screen U Methamphetamin-MDMA U Benzodiazepines Scrn Urine Cocaine Screen U Cannabinoids Screen Ur Drug Screen Comment Ethyl Alcohol < 3.0 MRSA (PCR) 09/14/17 09/14/17 09/14/17 17:30 21:15 21:15 WBC 11.7 H RBC 4.26 Hgb 12.6 Hct 40.6 MCV 95.3 MCH 29.6 MCHC 31.0 L RDW 17.5 H RDW Differential 56.5 H Plt Count 177 MPV 11.1 Immature Gran % (Auto) 0.400 Neut % (Auto) 86.2 H Lymph % (Auto) 5.7 L [place] % (Auto) 7.7 Eos % (Auto) 0.0 Baso % (Auto) 0.0 Absolute Neuts (auto) 10.1 H Absolute Lymphs (auto) 0.67 L Total Counted Not Reportable Sodium 142 Potassium 4.3 Chloride 106 Carbon Dioxide 29.0 Anion Gap 7 BUN 31 H Creatinine 0.92 Estim Creat Clear Calc 52.45 Est GFR (MDRD) Af Amer 80 Est GFR (MDRD) Non-Af 66 BUN/Creatinine Ratio 33.8 H Glucose 168 H Calcium 7.8 L Phosphorus Magnesium Total Bilirubin AST ALT Alkaline Phosphatase Ammonia Troponin I 0.08 H B-Natriuretic Peptide Total Protein Albumin Globulin Albumin/Globulin Ratio Triglycerides Cholesterol LDL Cholesterol VLDL Cholesterol HDL Cholesterol Ur Random Sodium Urine Creatinine Urine Opiates Screen Urine Methadone Screen Ur Barbiturates Screen Ur Phencyclidine Scrn Ur Amphetamines Screen U Methamphetamin-MDMA U Benzodiazepines Scrn Urine Cocaine Screen U Cannabinoids Screen Ur Drug Screen Comment Ethyl Alcohol MRSA (PCR) 09/14/17 09/15/17 09/15/17 23:55 04:30 04:30 WBC 16.8 H RBC 4.44 Hgb 13.4 Hct 41.9 MCV 94.4 MCH 30.2 MCHC 32.0 RDW 18.0 H RDW Differential 56.9 H Plt Count 187 MPV 10.9 Immature Gran % (Auto) Neut % (Auto) Lymph % (Auto) [place] % (Auto) Eos % (Auto) Baso % (Auto) Absolute Neuts (auto) Absolute Lymphs (auto) Total Counted Sodium 144 Potassium 4.1 Chloride 107 Carbon Dioxide 30.0 Anion Gap 7 BUN 31 H Creatinine 0.94 Estim Creat Clear Calc 51.33 Est GFR (MDRD) Af Amer 78 Est GFR (MDRD) Non-Af 64 BUN/Creatinine Ratio 33.0 H Glucose 169 H Calcium 8.1 L Phosphorus 1.7 L Magnesium 2.1 Total Bilirubin 0.50 AST 31 ALT 18 Alkaline Phosphatase 57 Ammonia Troponin I 0.06 B-Natriuretic Peptide Total Protein 6.0 L Albumin 2.7 L Globulin 3.3 Albumin/Globulin Ratio 0.8 L Triglycerides 79 Cholesterol 91 LDL Cholesterol 41 VLDL Cholesterol 16 HDL Cholesterol 34 L Ur Random Sodium Urine Creatinine Urine Opiates Screen Urine Methadone Screen Ur Barbiturates Screen Ur Phencyclidine Scrn Ur Amphetamines Screen U Methamphetamin-MDMA U Benzodiazepines Scrn Urine Cocaine Screen U Cannabinoids Screen Ur Drug Screen Comment Ethyl Alcohol MRSA (PCR) POC Glucose 09/14/17 18:09 POC Glucose 182 H Assessment/Plan Impressions 1. Acute respiratory failure with hypoxemia and hypercapnia and respiratory acidosis 2. metabolic encephalopathy 3. GUME 4. hx of systolic CM with a 45% EF in February of 2017 5. 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 Now with encephalomalacia in the R occipital and the left Paraietal lobes. CTA of the head and neck in February 2017 showed no significant areas of stenosis. 6. NSTEMI February 2017 when she was going through acute alcohol withdrawal 7. Hx of Alcoholism 8. Hyperkalemia 9. Upper GI bleed in February 2017 secondary to Jennifer-Torrez tear 10. Pulmonary hypertension She was extubated this a.m. Will continue steroids and aerosols. Respiratory panel is negative. There are 4+ white blood cells on the sputum Gram stain and the final culture is pending however there is 4+ gram-positive diplococci and this may be consistent with strep pneumoniae. Maintain in ICU for the next few hours and if she remains stable transfer to PCU. Discussed with Dr. Flannery. Code Visit Inpatient E&M: 84020 Subs Hosp L3
[2017-09-15] MEDS: Piperacil/Tazobactam 3.375 GM/50 ML ML IV ×3 (07:56→22:26)
--- NOTE | 2017-09-15 07:58 | PCM.RX.CS ---
Consult Pharmacy has been consulted to manage selected antiobiotic: Vancomycin Type of Consult: New start Suspected Infection: Pneumonia Labs: Sodium 144 mmol/L (136-145) 09/15/17 04:30 Potassium 4.1 mmol/L (3.5-5.1) 09/15/17 04:30 Chloride 107 mmol/L (98-107) 09/15/17 04:30 Carbon Dioxide 30.0 mmol/L (21.0-32.0) 09/15/17 04:30 Anion Gap 7 (5-15) 09/15/17 04:30 BUN 31 mg/dL (7-18) H 09/15/17 04:30 Creatinine 0.94 mg/dL (0.55-1.02) 09/15/17 04:30 Est GFR (MDRD) Af Amer 78 mL/min (>60) 09/15/17 04:30 Est GFR (MDRD) Non-Af 64 mL/min (>60) 09/15/17 04:30 BUN/Creatinine Ratio 33.0 RATIO (10-20) H 09/15/17 04:30 Glucose 169 mg/dL (74-106) H 09/15/17 04:30 Microbiology: Microbiology 09/14/17 11:05 Sputum, Induced/Lukens Gram Stain - Final 09/14/17 07:08 Mucosa - Nose Respiratory Panel (PCR) - Final Weight used for dosin kg Estimated Creatinine Clearance: 51 mL/min Goal Trough: 15-20 mcg/mL Pharmacy Plan for Drug Dosing: Recommend vancomycin 1000mg IV q12h. Pharmacy Service will continue to monitor and adjust dosing as required. Follow-Up Labs: Trough Vancomycin Labs to be done on [date and time ordered]: 09/17 @ 0900
[2017-09-15 08:29] LABS: Hemoglobin A1c 5.8 % (4.2-6.3)
--- NOTE | 2017-09-15 09:34 | CASEMGMT ---
See RN CM Assessment. DC Plan: home. Lali HILLN RN ACM
[2017-09-15] MEDS: Folic Acid 1 MG Tablet PO (09:51)
[2017-09-15] MEDS: Enoxaparin 40 MG/0.4 ML Syringe SC (09:51)
[2017-09-15] MEDS: Thiamine Hydrochloride 100 MG Tablet PO (09:52)
[2017-09-15] MEDS: Aspirin 81 MG TAB.CHEW PO (09:52)
[2017-09-15] MEDS: CHLORHEXIDINE GLUC 2% CLOTH 1 EACH TOWELETTE TOPICAL (09:54)
[2017-09-15 11:08] LABS: Pathologist Review Reviewed
[2017-09-15 11:41] LABS: Bedside Glucose 170 mg/dL (70-110)
--- NOTE | 2017-09-15 11:59 | CASEMGMT ---
SW spoke w/pt regarding LW/POA. Pt's brother and present. Pt would like the papers, but needs to talk to a family member in [place] about being her POA. SW gave pt the blank forms, let her know is available to assist her in completing them if she would like to while she is still here. BURTON Elmore, CLEANER OPERATOR
[2017-09-15] MEDS: 0.9% Normal Saline 1,000 ML 999 ML IV (14:22)
[2017-09-15 17:11] LABS: Bedside Glucose 126 mg/dL (70-110)
[2017-09-15] MEDS: Magnesium Hydroxide 30 ML UDC PO (20:27)
[2017-09-15 21:31] LABS: Bedside Glucose 132 mg/dL (70-110)
[2017-09-15] MEDS: MELATONIN 10 MG TABLET PO (22:05)
[2017-09-16] VITALS (18 sets, daily range): BP systolic 114–125; BP diastolic 59–64; PULSE 57–88; RESP 16–21; TEMP 36–36.9; O2SAT 94–98
[2017-09-16] MEDS: Ipratropium/Albuterol Sulfate 3 ML AMPUL.NEB INHALATION ×6 (03:33→23:17)
[2017-09-16] MEDS: Piperacil/Tazobactam 3.375 GM/50 ML ML IV (05:41)
[2017-09-16 06:55] LABS: Bedside Glucose 271 mg/dL (70-110)
--- NOTE | 2017-09-16 08:26 | PN_ITS ---
Patient Problems: Active and Suspected Problems Acute respiratory failure (Acute) Subjective: The patient was seen and examined. She is sitting up in the chair, in no acute distress. She remains afebrile since yesterday afternoon and hemodynamically stable. Patient doing well post extubation on 09/15/17. Maintaining appropriate saturations on 2 L of oxygen. Denies cough, shortness of breath, or wheezing. Her IV infiltrated and nursing attempting IV access. Objective: Recent lab work, culture data, and imaging reviewed. No new lab work today. Chest x-ray from 09/15 showing airspace disease in the right base and small right pleural effusion possible with mild pneumonia on COPD. Blood culture showing NG x 48 hours. Respiratory viral panel was negative. Sputum showing strep pneumoniae. Urine culture preliminary showing gram-negative rods. Hemoglobin A1c 5.8. - Physical Exam General: Alert, Oriented x3, Cooperative, No apparent distress, Well developed, Well nourished HEENT: Atraumatic, Normocephalic Oral: Moist Mucosa, No Gingival or Mucosal Lesions/ Ulcerations Neck: Supple, No Nodes, Trachea Midline Lungs: No rhonchi, No wheeze, No rales, - - Very little air movement Cardiovascular: Regular rate, Regular Rhythm, Normal S1, Normal S2, No murmurs, No rub noted, No Gallop Abdomen: Bowel Sounds Present, Soft, Non Tender, Non-Distended Extremities: No clubbing, No cyanosis, No edema Skin: No rashes, No breakdown, - Musculoskeletal: No Tenderness to Palpation of Joints or Extremities Lymphatic: - - no adenopathy Neurological: Neuro grossly intact Psych/Mental Status: Alert and oriented to time, place, person, mood and affect Vital Signs Temp Pulse Resp BP Pulse Ox 96.8 F L 88 21 H 120/59 L 94 09/16/17 03:21 09/16/17 07:25 09/16/17 07:10 09/16/17 03:21 09/16/17 07:33 Oxygen Flow Rate (L/min) 2 Oxygen Delivery Method Nasal Cannula Weight: 148 lb 5.938 oz Body Mass Index (BMI) 25.8 Intake and Output for Last 24 Hours 09/14/17 09/15/17 09/16/17 23:59 23:59 23:59 Intake Total 1285 / 1285 2989.9 / 2989.9 537 / 537 Output Total 1700 / 1700 2100 / 2100 Balance -415 / -415 889.9 / 889.9 537 / 537 Microbiology Past 72 Hours 09/14/17 03:10 Blood Culture - Preliminary Blood Culture (Wb) - Right Forearm No growth in 48 hours. 09/14/17 03:10 Blood Culture - Preliminary Blood Culture (Wb) - Left Forearm No growth in 48 hours. 09/14/17 11:05 Gram Stain - Final Sputum, Induced/Lukens Respiratory Culture - Preliminary Alpha Hemolytic Streptococcus 09/14/17 07:08 Respiratory Panel (PCR) - Final Mucosa - Nose Laboratory Tests Past 24 Hrs 09/15/17 04:30 Hemoglobin A1c 5.8 POC Glucose 09/16/17 09/15/17 09/15/17 06:52 21:24 17:03 POC Glucose 271 H 132 H 126 H 09/15/17 11:35 POC Glucose 170 H Assessment/Plan Active and Suspected Problems Acute respiratory failure (Acute) RECOMMENDATIONS: 1. Continue scheduled aerosol treatments and oral steroids 2. Antibiotics changed according to sputum culture results 3. Wean supplemental oxygen to maintain saturations 88-92%. 4. Replace electrolytes as indicated 5. Encourage incentive spirometer use and mobilize patient as tolerated. 6. Ambulatory pulse oximetry prior to discharge 7. Follow-up in the pulmonary clinic 2 weeks after discharge at which time pulmonary function tests can be obtained IMPRESSIONS: 1. Acute on chronic respiratory failure/presumptive COPD of unknown severity Improved. The patient appears to have a baseline chronic CO2 retention, based upon the results of her last ABG and chronically elevated serum bicarb. The patient has a reported history of tobacco use, which is now in remission, and questionable COPD. However, PFTs have never been completed to confirm. She does not appear to be on any baseline inhalers. Plain film chest imaging revealed no acute cardiopulmonary process. However, there is some concern that the patient may have aspirated in the days leading up to her hospitalization. Therefore, she was started on empiric antibiotics. Sputum culture showing strep pneumoniae, antibiotics were changed. The patient will remain on scheduled aerosol treatments and oral steroids. She was successfully extubated 09/15 and is now saturating 94% on 2L/nc. Continue to wean supplemental oxygen to maintain saturations at or above 90%. Encourage incentive spirometer. Patient will require ambulatory pulse ox prior to discharge. She can follow-up in the pulmonary clinic in 2 weeks with TRANSIT COACH OPERATOR upon discharge. 2. Hypercarbic encephalopathy Resolved. Improvement in mentation was noted with normalization of the patient' s acid-base disturbance. The patient may eventually require the initiation of some form of noninvasive positive pressure ventilation on an outpatient basis. 3. Acute kidney injury Resolved. Likely prerenal in etiology. Creatinine is improved following volume expansion. Urine output is appropriate. No indication for renal replacement therapy at this time. 4. Chronic Systolic heart failure/pulmonary hypertension Continue current medical management. Maintain euvolemic state. 5. Personal history of alcoholism/prior upper GI bleed Continue to monitor blood counts daily. No signs of alcohol intoxication or withdrawal. 6. Prior hemorrhagic stroke/coronary artery disease/hyperlipidemia/hypertension /tobacco dependence Complicates care, management, recovery and prognosis. Likely okay to continue home medications. Continue physical therapy. This note was generated with [employer] dictation software. It may contain incorrect words, spelling, and punctuation that were not noted in checking the note before signing.
[2017-09-16] MEDS: Thiamine Hydrochloride 100 MG Tablet PO (08:48)
[2017-09-16] MEDS: Aspirin 81 MG TAB.CHEW PO (08:48)
[2017-09-16] MEDS: Folic Acid 1 MG Tablet PO (09:49)
[2017-09-16] MEDS: Enoxaparin 40 MG/0.4 ML Syringe SC (09:49)
[2017-09-16] MEDS: 0.9% NaCl Peripheral Flush Adult/Peds IV (11:09)
[2017-09-16 12:01] LABS: Bedside Glucose 140 mg/dL (70-110)
--- NOTE | 2017-09-16 13:01 | CASEMGMT ---
SW spoke w/pt briefly today about LW/POA forms. Pt states her brought the papers SW gave her yesterday home. SW let pt know if she would like to complete them while she is here in the hospital, to let her RN know and SW can return. BURTON Elmore, NSH TEACHER
[2017-09-16 17:00] LABS: Bedside Glucose 128 mg/dL (70-110)
[2017-09-16] MEDS: MELATONIN 10 MG TABLET PO (21:11)
[2017-09-16 21:16] LABS: Bedside Glucose 125 mg/dL (70-110)
--- NOTE | 2017-09-16 23:06 | PN_ITS ---
Subjective: she is still getting somewhat SOB with exertion. cough is better. Denies dyspnea at rest. sputum culture is + for strep pneumoniae No mouth pain or difficulty swallowing. Denies vaginal discharge and also denies diarrhea. - Physical Exam General: Alert, Oriented x3, Cooperative, No apparent distress Oral: Moist Mucosa, No Gingival or Mucosal Lesions/ Ulcerations Neck: Trachea Midline Lungs: Diminished, Wheezes - Use expiratory wheezing, mild Cardiovascular: Regular rate, Regular Rhythm, Normal S1, Normal S2, No murmurs, No Ectopic Activity, No Gallop Abdomen: Bowel Sounds Present, Soft, Non Tender Extremities: No cyanosis, No edema Skin: No breakdown Vital Signs Temp Pulse Resp BP Pulse Ox 97.8 F 61 18 124/64 H 94 09/16/17 20:35 09/16/17 20:35 09/16/17 20:35 09/16/17 20:35 09/16/17 20:35 Oxygen Flow Rate (L/min) 1.5 Oxygen Delivery Method Nasal Cannula Weight: 148 lb 5.938 oz Body Mass Index (BMI) 25.8 Intake and Output for Last 24 Hours 09/14/17 09/15/17 09/16/17 23:59 23:59 23:59 Intake Total 1285 / 1285 2989.9 / 2989.9 2347 / 2347 Output Total 1700 / 1700 2100 / 2100 Balance -415 / -415 889.9 / 889.9 2347 / 2347 Microbiology Past 72 Hours 09/15/17 09:40 Urine Culture - Preliminary Urine Catheter - Fortune Gram negative hortensia 09/14/17 11:05 Gram Stain - Final Sputum, Induced/Lukens Respiratory Culture - Preliminary Streptococcus pneumoniae 09/14/17 03:10 Blood Culture - Preliminary Blood Culture (Wb) - Right Forearm No growth in 48 hours. 09/14/17 03:10 Blood Culture - Preliminary Blood Culture (Wb) - Left Forearm No growth in 48 hours. 09/14/17 07:08 Respiratory Panel (PCR) - Final Mucosa - Nose POC Glucose 09/16/17 09/16/17 09/16/17 21:10 16:55 11:52 POC Glucose 125 H 128 H 140 H 09/16/17 06:52 POC Glucose 271 H Assessment/Plan Impressions 1. severe sepsis with Acute respiratory failure with hypoxemia, hypercapnia and respiratory acidosis-secondary to streptococcal pneumonia 2. metabolic encephalopathy-secondary to acute respiratory failure/pneumonia 3. GUME 4. hx of systolic CM with a 45% EF in February of 2017 5. 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 Now with encephalomalacia in the R occipital and the left Paraietal lobes. CTA of the head and neck in February 2017 showed no significant areas of stenosis. 6. NSTEMI February 2017 when she was going through acute alcohol withdrawal 7. Hx of Alcoholism 8. Hyperkalemia 9. Upper GI bleed in February 2017 secondary to Jennifer-Torrez tear 10. Pulmonary hypertension Continue with the current medications....taper steroids Pulse ox on RA with ambulation in the AM Possible DC tomorrow....suspect she is going to need home O2 Follow up with pulmonary 2 weeks post discharge to arrange pulmonary function tests Code Visit Inpatient E&M: 01962 Subs Hosp L2
[2017-09-16] MEDS: Temazepam 15 MG Capsule PO (23:22)
[2017-09-17] VITALS (12 sets, daily range): BP systolic 110–122; BP diastolic 51–63; PULSE 61–84; RESP 16–18; TEMP 36.4–36.8; O2SAT 79–95
[2017-09-17] MEDS: Ipratropium/Albuterol Sulfate 3 ML AMPUL.NEB INHALATION ×3 (06:58→14:56)
[2017-09-17] MEDS: Aspirin 81 MG TAB.CHEW PO (08:14)
[2017-09-17] MEDS: Folic Acid 1 MG Tablet PO (08:14)
[2017-09-17] MEDS: Enoxaparin 40 MG/0.4 ML Syringe SC (08:14)
[2017-09-17] MEDS: Thiamine Hydrochloride 100 MG Tablet PO (08:14)
[2017-09-17 10:07] LABS: Vancomycin, Trough Level 3.9 ug/mL (5.0-15.0)
[2017-09-17] MEDS: 0.9% NaCl Peripheral Flush Adult/Peds IV (10:11)
--- NOTE | 2017-09-17 11:25 | PCM.PROGNOTE ---
Patient Problems: Active and Suspected Problems Acute respiratory failure (Acute) Subjective: The patient was seen and examined. She is sitting up in the chair in no acute distress. She is asking if she can go home today. Denies any cough, sputum production, wheezing, or shortness of breath at rest. She does get dyspneic on exertion. She had an ambulatory pulse ox this morning and was 79% on room air with ambulation. She is maintaining appropriate saturations on 1-2 L of oxygen supplementation. Objective: No recent blood work or imaging to review. Vancomycin trough was drawn this morning. Chest x-ray from 09/15 showing airspace disease in the right base and small right pleural effusion possible with mild pneumonia on COPD. Blood culture showing NG x 48 hours. Respiratory viral panel was negative. Sputum showing strep pneumoniae. Urine culture showing E. coli. Hemoglobin A1c 5.8. - Physical Exam General: Alert, Oriented x3, Cooperative, No apparent distress, Well developed, Well nourished HEENT: Atraumatic, Normocephalic Oral: Moist Mucosa, No Gingival or Mucosal Lesions/ Ulcerations Neck: Supple, No Nodes, Trachea Midline Lungs: - - Diminished throughout with no appreciable rhonchi, rales, or wheezing. Cardiovascular: Regular rate, Regular Rhythm, Normal S1, Normal S2, No murmurs Abdomen: Bowel Sounds Present, Soft, Non Tender, Non-Distended Extremities: No clubbing, No cyanosis, No edema Skin: No rashes, No breakdown Musculoskeletal: No Tenderness to Palpation of Joints or Extremities Neurological: Neuro grossly intact Psych/Mental Status: Alert and oriented to time, place, person, mood and affect Vital Signs Temp Pulse Resp BP Pulse Ox 97.6 F L 75 18 120/63 79 09/17/17 08:02 09/17/17 08:02 09/17/17 08:02 09/17/17 08:02 09/17/17 10:10 Oxygen Flow Rate (L/min) 1 Oxygen Delivery Method Nasal Cannula Weight: 146 lb 6.191 oz Body Mass Index (BMI) 25.8 Intake and Output for Last 24 Hours 09/15/17 09/16/17 09/17/17 23:59 23:59 23:59 Intake Total 2989.9 / 2989.9 3047 / 3047 316 / 316 Output Total 2099 / 2099 Balance 889.9 / 889.9 3047 / 3047 316 / 316 Microbiology Past 72 Hours 09/15/17 09:40 Urine Culture - Final Urine Catheter - Fortune Escherichia coli 09/14/17 11:05 Gram Stain - Final Sputum, Induced/Lukens Respiratory Culture - Final Streptococcus pneumoniae 09/14/17 03:10 Blood Culture - Preliminary Blood Culture (Wb) - Right Forearm No growth in 48 hours. 09/14/17 03:10 Blood Culture - Preliminary Blood Culture (Wb) - Left Forearm No growth in 48 hours. 09/14/17 07:08 Respiratory Panel (PCR) - Final Mucosa - Nose Laboratory Tests Past 24 Hrs 09/17/17 09:15 Vancomycin Trough 3.9 L POC Glucose 09/16/17 09/16/17 09/16/17 21:10 16:55 11:52 POC Glucose 125 H 128 H 140 H Assessment/Plan Active and Suspected Problems Acute respiratory failure (Acute) RECOMMENDATIONS: 1. Continue scheduled aerosol treatments and oral steroids with 5 day burst 40mg at discharge 2. Continue antibiotics 3. Wean supplemental oxygen to maintain saturations 88-92%. 4. Encourage incentive spirometer use and mobilize patient as tolerated. 5. Supplemental oxygen at discharge (ambulatory pulse ox completed) 6. Follow-up in the pulmonary clinic 2 weeks after discharge at which time pulmonary function tests can be obtained, possible PSG IMPRESSIONS: 1. Acute on chronic respiratory failure/presumptive COPD of unknown severity Improved. The patient appears to have a baseline chronic CO2 retention, based upon the results of her last ABG and chronically elevated serum bicarb. The patient has a reported history of tobacco use, which is now in remission, and questionable COPD. However, PFTs have never been completed to confirm. She does not appear to be on any baseline inhalers. Plain film chest imaging revealed no acute cardiopulmonary process. However, there is some concern that the patient may have aspirated in the days leading up to her hospitalization. Therefore, she was started on empiric antibiotics. Sputum culture showing strep pneumoniae, antibiotics were changed. Urine culture w/E-coli. She was successfully extubated 09/15 and is now saturating 94% on 2L/nc. The patient will remain on scheduled aerosol treatments and oral steroids, a 5 day burst of 40mg Prednisone should be sufficient. Continue to wean supplemental oxygen to maintain saturations at or above 90%. Encourage incentive spirometer. Patient will require supplemental oxygen at discharge. She can follow-up in the pulmonary clinic in 2 weeks with ASSURANCE SENIOR MANAGER. 2. Hypercarbic encephalopathy Resolved. Improvement in mentation was noted with normalization of the patient's acid-base disturbance. The patient may eventually require the initiation of some form of noninvasive positive pressure ventilation on an outpatient basis. 3. Acute kidney injury Resolved. Likely prerenal in etiology. Creatinine is improved following volume expansion. Urine output is appropriate. No indication for renal replacement therapy at this time. 4. Chronic Systolic heart failure/pulmonary hypertension Continue current medical management. Maintain euvolemic state. 5. Personal history of alcoholism/prior upper GI bleed Continue to monitor blood counts daily. No signs of alcohol intoxication or withdrawal. 6. Prior hemorrhagic stroke/coronary artery disease/hyperlipidemia/hypertension/tobacco dependence Complicates care, management, recovery and prognosis. Likely okay to continue home medications. Continue physical therapy. This note was generated with [employer]Order dictation software. It may contain incorrect words, spelling, and punctuation that were not noted in checking the note before signing.
--- NOTE | 2017-09-17 12:10 | CASEMGMT ---
This RN CM to room to speak with pt regarding therapy recommendation for HHC/further skilled therapy and also DME preference as pt did qualify for home oxygen per Mary Alice KILPATRICK. Pt refuses HHC/outpt therapy at this time. Advised pt that her PCP can set up if she feels that she need therapy once she is at home, voices understanding. Pt states that she would like [facility] for home oxygen at this time. Referral to Lisa at [facility] via phone and referral faxed to [facility] once order signed by Dr. Rosenthal. Pt voices no further concerns/needs at this time. SStdylan KILPATRICK CM
--- NOTE | 2017-09-17 16:18 | PCM.DC ---
- Discharge Diagnoses Current Active Problems: Current Active and Chronic Problems Acute respiratory failure (Acute) You will use the following diet at home:: Cardiac Your food should be the consistency of: Regular Your liquids should be the consistency of: Regular/Thin Discharge Activity: Return to Normal Activity Allergies/Adverse Reactions: Allergies tetanus and diphtheria toxoids [tetanus & diphtheria toxoids] Allergy (Verified 09/13/17 21:27) Hives Medications to take at Discharge Aspirin E.C. [Ecotrin] 81 mg PO DAILY 02/22/17 Atorvastatin Calcium 1 tab PO DAILY 02/22/17 Carvedilol [Coreg (Beta Indy)] 12.5 mg PO BID 02/22/17 Folic Acid 1 tab PO DAILY 02/22/17 Lisinopril [Zestril] 1 tab PO DAILY 02/22/17 Spironolactone 1 tab PO DAILY 02/22/17 Albuterol IH (ProAir) [Proair Hfa] 1 puff INHALATION Q4H PRN PRN #1 inhaler 09/17/17 Cefdinir 300 mg PO BID #8 cap 09/17/17 Magnesium Hydroxide [Milk Of Magnesia] 30 ml PO DAILY PRN PRN udc 09/17/17 Prednisone 40 mg PO DAILY #10 tab 09/17/17 The following prescriptions were given: Albuterol IH (ProAir) [Proair Hfa] 1 puff INHALATION Q4H PRN PRN #1 inhaler PRN Reason: Sob &/Or Wheezing Cefdinir 300 mg PO BID #8 cap Prednisone 40 mg PO DAILY #10 tab Primary Care Physician: César Stahl MD [Primary Care Provider] - Please follow up with your Primary Care Physician in: 1-2 weeks Please Follow Up With: Anurag Flannery DO When: 2 weeks Proposed Discharge Date: 09/17/17
--- NOTE | 2017-09-17 17:23 | PCM.DC.SUM ---
<Booker Parson - Last Filed: 09/17/17 17:38> Discharge Date and Diagnosis Date of Admission: 09/14/17 Date of Discharge: 09/17/17 - Primary Discharge Diagnosis Acute COPD exacerbation Acute community acquired PNA - strep pneumo, right lower lobe Acute UTI - E coli Acute hypoxic respiratory failure Hypercarbic encephalopathY hx alcoholism hx upper GI bleed (jennifer tracy tears), prior hemorrhagic stroke HLD Prior smoker CAD - Secondary Discharge Diagnosis Chronic Problems Heart failure with reduced ejection fraction (Chronic) Alcoholism (Chronic) Hospital Course and Treatment Imaging Results: CT/Brain/Head without Contrast IMPRESSION: Regions of encephalomalacia consistent with old infarcts of the right occipital and left parietal lobes. These appear stable in the interval from the previous study. There is no evidence of acute infarct or intracranial hemorrhage. If acute infarct is clinically suspected, MRI may be helpful for further evaluation at this time. RAD/Chest 1 View (Portable) IMPRESSION: Calcified bilateral hilar and right mediastinal nodes. No acute cardiopulmonary disease process is seen. RAD/Chest 1 View (Portable) IMPRESSION: Degenerative changes, as described above. No demonstrated acute cardiopulmonary process. Endotracheal tube is seen its tip is 3.2 cm superior to the claude. An OG tube is seen its tip is below the diaphragm is in good position. RAD/Chest 1 View (Portable) IMPRESSION: The lines are in adequate position. COPD. Indistinct right diaphragmatic contour could be due to mild pleural thickening and/or effusion. RAD/Chest 1 View (Portable) IMPRESSION: There is an ill-defined patchy infiltrate of the right lung base which may represent pneumonic process or atelectasis. Nasogastric and endotracheal tubes appearing in adequate position. RAD/Chest 1 View (Portable) IMPRESSION: Airspace disease right base and small right pleural effusion possible mild pneumonia on COPD. The lines are in adequate position. Consults: Prudencio - intensive care / pulm Operations: None Procedures: None, Intubation Summary of Care Provided: Physical exam on day of discharge: General: Resting comfortably NAD Psych: A/Ox3 normal affect HEENT: PEARRLA AT NC Neck: Supple NT CV: RRR no m/t/r/g/h Resp: CTA Abd: [id number] Soft NT no guarding or rigidity Ext: DP2+= 2+ pitting edema bilateral lower extremities up to the knees. Skin: W/D normal turgor Lymph/Heme: No active bleeding or adenopathy Neuro: CN2-12 intact Hospital course: The patient is a 61 year old F who presented to the ER with increased confusion, cough, hypoxia and significant acidosis on ABG. She had a hx of COPD, alcoholism, prior smoker, hx systolic CHF, NSTEMI/CAD, hemorrhagic CVA, Jennifer tracy tear. Given her respiratory acidosis she was intubated and placed in the ICU with steroids and aerosol therapy. CT brain revealed old strokes. An Xray revealed right sided pna and she was initially placed on vanc and zosyn. These were transitioned to rocephin when cultures revealed strep pneumo. She was extubated and transferred to the PCU and continued to improve. She was unable to be weaned off O2 and required O2 for going home. She was transitioned to PO prednisone and will have 5 more days of therapy. She was not on any aerosols at home prior to admission. She was given albuterol for home. Urine culture demonstrated E coli. Both the strep and e coli were sensative to Rocephin. She was transitioned to cefdinir to complete a total of 7 days of antibiotic therapy. She was in stable condition and discharged home on home O2 and the above medications. This patient was seen by Booker Parson PA-C under the supervision of Doctor Galo. [] Discharge Diet: Low fat/ Low Cholesterol, 2000 mg Sodium Diet Discharge Activity: Return to Normal Activity Home Medications: Medications to take at Discharge Aspirin E.C. [Ecotrin] 81 mg PO DAILY 02/22/17 Atorvastatin Calcium 1 tab PO DAILY 02/22/17 Carvedilol [Coreg (Beta Indy)] 12.5 mg PO BID 02/22/17 Folic Acid 1 tab PO DAILY 02/22/17 Lisinopril [Zestril] 1 tab PO DAILY 02/22/17 Spironolactone 1 tab PO DAILY 02/22/17 Albuterol IH (ProAir) [Proair Hfa] 1 puff INHALATION Q4H PRN PRN #1 inhaler 09/17/17 Cefdinir 300 mg PO BID #8 cap 09/17/17 Magnesium Hydroxide [Milk Of Magnesia] 30 ml PO DAILY PRN PRN udc 09/17/17 Prednisone 40 mg PO DAILY #10 tab 09/17/17 Following Prescrptions Were Given to Patient: Albuterol IH (ProAir) [Proair Hfa] 1 puff INHALATION Q4H PRN PRN #1 inhaler PRN Reason: Sob &/Or Wheezing Cefdinir 300 mg PO BID #8 cap Prednisone 40 mg PO DAILY #10 tab Primary Care Physician: César Stahl MD [Primary Care Provider] - Please follow up with your Primary Care Physician in: 1-2 weeks Please Follow Up With: Anurag Flannery DO When: 2 weeks Please Follow Up With: César Stahl MD When: 1-2 weeks Disposition: Home Minutes spent on discharge:: 40 Patient Condition:: Stable Medical Necessity - Tobacco Use Smoking Status: Former smoker Meaningful Use Info Meaningful Use Diagnoses (Choose all that apply): None applicable <Vipin Rosenthal - Last Filed: 09/21/17 13:45> Discharge Date and Diagnosis - Secondary Discharge Diagnosis Chronic Problems Heart failure with reduced ejection fraction (Chronic) Alcoholism (Chronic) Hospital Course and Treatment Summary of Care Provided: The patient is a 61 year old F [] Code Visit This patient was seen in conjunction with Booker ROSENTHAL. I have independently interviewed and examined the patient and reviewed pertinent historical, laboratory and other data. Please refer to discharge summary note for details of this patient's presentation, findings and recommendations. I have reviewed Booker's note and concur fully with documented findings. In brief, patient is a 61YO male admitted with acute respiratory failure requiring intubation secondary to streptococcal pneumonia. Patient was intubated in the emergency room for acute respiratory failure with hypoxia and hypercapnia. She was extubated on 09/15/2017. Respiratory panel was negative. Sputum culture had 4+ white blood cells and was positive for streptococcal pneumoniae. A culture grew greater than 100,000 colonies of E. coli from a catheterized specimen. He was treated with steroids, aerosolized bronchodilators, incentive spirometry and PEP therapy. Physical examination: Alert and oriented ?3. No apparent distress. Lungs-diminished with rare expiratory wheeze. Heart-regular rate and rhythm, no gallop, no rub. Abdomen-soft, nontender, nondistended, no guarding with palpation. No cyanosis, no peripheral edema. Pulse ox with ambulation on room air was 79 per percent and on 1 L was 94%. Assessment: 1. Severe sepsis secondary to streptococcal pneumonia with acute respiratory failure and acute COPD exacerbation requiring intubation 2. Acute cystitis secondary to E. coli 3. Encephalopathy secondary to hypercarbia I have discussed my assessment with Booker and orders have been written. Inpatient E&M: [id number] [facility]
== END 2017-09-17 16:55 | disposition home or self-care (01) | DRG 208 ==
LOC: ED 23:35 → ICU 09-14 01:25 → PCU 09-16 02:32
PROVIDERS: Internal Medicine Critical Care Medicine; Admitting Provider Family Medicine; Emergency Provider Emergency Medicine; Family Provider Family Medicine; PCP Family Medicine; Visit Provider Internal Medicine
DX: J96.22 Acute and chronic respiratory failure with hypercapnia (principal); G93.41 Metabolic encephalopathy; J13 Pneumonia due to Streptococcus pneumoniae; N17.9 Acute kidney failure, unspecified; I11.0 Hypertensive heart disease with heart failure; J44.0 Chronic obstructive pulmonary disease with (acute) lower respiratory infection; I50.22 Chronic systolic (congestive) heart failure; G93.89 Other specified disorders of brain; J44.1 Chronic obstructive pulmonary disease with (acute) exacerbation; N30.90 Cystitis, unspecified without hematuria; I27.20 Pulmonary hypertension, unspecified; E87.5 Hyperkalemia; J96.01 Acute respiratory failure with hypoxia; I25.10 Atherosclerotic heart disease of native coronary artery without angina pectoris; Z87.891 Personal history of nicotine dependence; I25.2 Old myocardial infarction; I69.398 Other sequelae of cerebral infarction; Z87.19 Personal history of other diseases of the digestive system; E78.5 Hyperlipidemia, unspecified; F10.21 Alcohol dependence, in remission; B96.20 Unspecified Escherichia coli [E. coli] as the cause of diseases classified elsewhere
CPT/HCPCS: 31500; 31720; 36415; 36600; 51702; 70450; 71045; 71046; 80048; 80053; 80061; 80202; 80307; 80320; 81001; 82140; 82570; 82803; 82962; 83036; 83605; 83735; 83880; 84100; 84132; 84300; 84443; 84478; 84484; 85025; 85027; 85610; 85730; 87040; 87070; 87077; 87086; 87088; 87186; 87205; 87633; 87641; 93005; 94002; 94003; 94640; 94660; 95831; 96360; 97161; 97166; 97530; 97535; 97802; 99251; 99284; 99285; J7030; J7040; J7050; J7120; A4216; G0463; G0480; J0696; J3490

== ENCOUNTER 2017-09-24 06:39 | Emergency (ER) | payer MEDICARE, SELFPAY ==
[2017-09-24 06:40] VITALS: BP 160/84; PULSE 86; RESP 20; TEMP 36.2; O2SAT 76; BMI 25.1
--- NOTE | 2017-09-24 06:43 | EKG12_ITS ---
Test Reason : SOB Blood Pressure : / mmHG Vent. Rate : 074 BPM Atrial Rate : 074 BPM P-R Int : 102 ms QRS Dur : 074 ms QT Int : 368 ms P-R-T Axes : 075 043 023 degrees QTc Int : 408 ms Sinus rhythm with short PA Otherwise normal ECG Confirmed by MOISES MENDES, LINDSEY ([id number]), society editor AJ AYOUB ([id number] on 09/28/2017 1:28:35 PM Referred By: ZOE Confirmed By:LINDSEY DE LEON MD
--- NOTE | 2017-09-24 06:46 | ED.VISSUMM ---
- ER Visit Summary Date of Service: 09/24/17 Chief Complaint: Shortness of breath History of Present Illness: The patient is a 61 F who complains of shortness of breath. She has had this for approximately 1 week. The patient was admitted to the hospital 10 days ago for acute respiratory failure and was intubated. She was found to have strep pneumonia. She was able to be extubated and placed on oral antibiotics and was discharged to home. She states that she feels no better than when she left the hospital. She continues to feel short of breath. She has had a cough but denies fever or chest pain. She is on chronic oxygen at 2 L. She is taking nebulizers and puffers at home without any relief. She has been taking Ceftin ear as well. She does not smoke. Physical Examination: Vital signs reviewed. HEENT exam unremarkable. Heart is regular rate and rhythm without murmurs. Lungs have severely diminished breath sounds, but when I can hear them there is wheezing noted. She does have some abdominal breathing noted. Abdomen is soft and nontender. Extremities reveal no edema. Skin exam normal. Neurologic exam normal. Test Results: [] Emergency Department Course and Treatment: [] Treatment Plan: [] Disposition: [] Impression: [] This note was generated with [employer] dictation software. It may contain incorrect words, spelling, and punctuation that were not noted in review of the chart prior to signing <[email or web address] - Last Filed: 09/24/17 06:46> - ER Visit Summary Patient was signed out to me. EKG showed sinus rhythm at a rate of 74 no sign of acute ischemia or infarction pattern. Her chest x-ray showed chronic changes including COPD, but nothing acute. White count 11.5, sodium 148, CO2 was elevated greater than 45. Troponin normal. PH 7.35, CO2 96. Patient had breathing treatments and Solu-Medrol. On reassessment, her lungs had improved. She had a very slight expiratory wheeze. She was alert, oriented, and active. She was requesting to go home. She was ambulated in the department. She had normal assistance. She was on 2 L, her baseline. Her oxygen stayed between 92 and 98%. Patient would like to go home, and I believe this is reasonable. The only concerning finding was her elevated CO2 on the blood gas. She normally runs between 60 and 80. I discussed this with the patient. They will monitor for change in mental status or any difficulty breathing. I advised her that if her symptoms worsen or if she develops any new issues, she should return as she may need hospitalization. Patient voiced understanding and agreement. Will discharge. Continue home antibiotics and steroids. Breathing treatments as needed. Continue home oxygen as prescribed. Disposition: Discharge Impression: 1. COPD Exacerbation This note was generated with [employer] dictation software. It may contain incorrect words, spelling, and punctuation that were not noted in review of the chart prior to signing <Patel Ragland - Last Filed: 10/02/17 07:50> ED Disposition <Kvng Cornelius - Last Filed: 09/24/17 06:46> <Patel Ragland - Last Filed: 10/02/17 07:50> - Plan for ED Patient: Disposition: Home or Assisted Living Chief Complaint: Shortness of Breath Instructions: ED COPD Flare Referrals: César Stahl MD [Primary Care Provider] -
[2017-09-24] MEDS: MethylPREDNISolone 125 MG/2 ML Vial IV (06:53)
--- NOTE | 2017-09-24 06:58 | RAD_ITS ---
STUDY: X-RAY CHEST REASON FOR EXAM: Female, 61 years old. Cough TECHNIQUE: Single AP portable view of the chest. COMPARISON: September 15, 2017 FINDINGS: There is hyperinflation of the lungs consistent with chronic obstructive lung disease (COPD). Enteric tube has been removed. ET tube has been removed. Lungs are clear. There is no demonstrated pleural abnormality. Normal size heart. Normal mediastinum and jacinto. Normal visualized pulmonary arteries. Normal visualized aortic arch and descending thoracic aorta. Normal visualized thoracic spine. Normal visualized ribs, clavicles, and shoulders. There is no demonstrated abnormality of the visualized soft tissue structures of the upper abdomen. RAD/Chest 1 View (Portable) IMPRESSION: COPD. Lungs are clear. Electronically Signed: Brian Funez DO at 7:19 EDT Tel , Service support ,
[2017-09-24 06:59] VITALS: PULSE 75; RESP 24
[2017-09-24] MEDS: Ipratropium/Albuterol Sulfate 3 ML AMPUL.NEB INHALATION (06:59)
[2017-09-24] MEDS: Albuterol 2.5 MG/3 ML VIAL.NEB. INHALATION ×2 (06:59)
[2017-09-24 07:31] LABS: Absolute Lymphocyte Count 3.36 X10^3/ul (0.83-4.51); Absolute Neutrophil Count 6.1 X10^3/uL (2.0-7.7); Basophil# 0.01 X10^3/uL; Basophil% 0.1 % (0-1); Eosinophil# 0.32 X10^3/uL; Eosinophils% 2.8 % (0-5); Hematocrit 49.9 % (37-47); Hemoglobin 14.5 g/dl (12.0-15.0); Lymphocyte # 3.36 X10^3/ul (4.0); Lymphocyte % 29.3 % (19-41); Mean Corp Hgb Conc 29.1 g/gl (32-36); Mean Corpuscular Hgb 29.5 pg (27.0-32.0); Mean Corpuscular Volume 101.6 fL (81-99); Mean Platelet Vol. 10.2 fl (6.2-12.0); Monocyte# 1.66 X10^3/uL; Monocyte% 14.5 % (0-10); Neutrophil # 6.05 X10^3/uL (2.7-7.7); Neutrophil % 52.8 % (47-70); POSITIVE COUNT NO; POSITIVE DIFFERENTIAL NO; Platelet Count 222 K/mm3 (150-450); RBC Distribution Width CV 15.7 % (11.6-14.6); RBC Distribution Width SD 58.2 fl (35.1-43.9); Red Blood Count 4.91 M/mm3 (4.2-5.4); White Blood Count 11.5 K/mm3 (4.4-11.0)
[2017-09-24 07:32] LABS: Differential Indicated SCAN CRITERIA MET; POSITIVE MORPHOLOGY YES
[2017-09-24 07:33] LABS: BUN 13 mg/dL (7-18); Calcium,Total 8.3 mg/dL (8.5-10.1); Carbon Dioxide > 45.0 mmol/L (21.0-32.0); Chloride 100 mmol/L (98-107); EST Glomerular Filtration Rate 133 mL/min (>60); Est Glom Filt Rate - Afr Amer 160 mL/min (>60); Estimated Creatinine Clearance 92.27 ml/min; Glucose 82 mg/dL (74-106); Potassium 4.4 mmol/L (3.5-5.1); Sodium Level 148 mmol/L (136-145)
--- NOTE | 2017-09-24 07:35 | ED.RN ---
co2 greater than [address] from the lab. dr shah aware
[2017-09-24 08:12] LABS: Allen Test POS; Blood Gas Specimen Type ART; O2 Delivery Device Nasal Can; SITE R RADIAL; Time Given 720; pH 7.35 (7.35-7.45)
[2017-09-24 08:13] LABS: Base Excess 28 mmol/L (-2 to +2); Bicarbonate 53.1 mmol/L (22-26); PO2 167 mmHG (75-100); pCO2 96.5 mmHg (35-45)
[2017-09-24 08:14] LABS: SO2 99 % (95-99); Total Carbon Dioxide > 50 mmol/L
--- NOTE | 2017-09-24 08:30 | ED.RN ---
pt ambulated on 2L NC. o2 sat prior to ambulation of 98, decreased to 92 with ambulation. pt states breathing was adequate on 2L, however felt weak.
--- NOTE | 2017-09-24 08:38 | ED.DEP ---
ED Disposition - Plan for ED Patient: Chief Complaint: Shortness of Breath Instructions: ED COPD Flare Referrals: César Stahl MD [Primary Care Provider] -
[2017-09-27 13:42] LABS: Pathologist Review Reviewed
== END 2017-09-24 08:45 | disposition home or self-care (01) ==
PROVIDERS: Emergency Medicine; Emergency Provider Emergency Medicine; Family Provider Family Medicine; PCP Family Medicine
DX: J44.1 Chronic obstructive pulmonary disease with (acute) exacerbation (principal); Z86.73 Personal history of transient ischemic attack (TIA), and cerebral infarction without residual deficits
CPT/HCPCS: 36600; 71045; 80048; 82803; 84484; 85025; 93005; 94640; 99285; A4216

== ENCOUNTER → 2017-10-12 20:00 | Outpatient (CLI) | payer MEDICARE, SELFPAY | PROVIDERS: Family Provider Family Medicine; PCP Family Medicine; Visit Provider Internal Medicine Critical Care Medicine | DX: G47.19 Other hypersomnia (principal); J44.1 Chronic obstructive pulmonary disease with (acute) exacerbation | CPT/HCPCS: 95810 ==

== ENCOUNTER → 2017-10-25 09:33 | Outpatient (CLI) | payer MEDICARE, SELFPAY ==
[2017-10-25 10:12] LABS: Absolute Lymphocyte Count 1.63 X10^3/ul (0.83-4.51); Absolute Neutrophil Count 4.8 X10^3/uL (2.0-7.7); Basophil# 0.04 X10^3/uL; Basophil% 0.6 % (0-1); Eosinophil# 0.11 X10^3/uL; Eosinophils% 1.5 % (0-5); Hematocrit 42.4 % (37-47); Hemoglobin 13.2 g/dl (12.0-15.0); Lymphocyte # 1.63 X10^3/ul (4.0); Lymphocyte % 22.9 % (19-41); Mean Corp Hgb Conc 31.1 g/gl (32-36); Mean Corpuscular Hgb 29.6 pg (27.0-32.0); Mean Corpuscular Volume 95.1 fL (81-99); Mean Platelet Vol. 11.2 fl (6.2-12.0); Monocyte# 0.56 X10^3/uL; Monocyte% 7.9 % (0-10); Neutrophil # 4.77 X10^3/uL (2.7-7.7); POSITIVE COUNT NO; POSITIVE DIFFERENTIAL NO; POSITIVE MORPHOLOGY NO; Platelet Count 179 K/mm3 (150-450); RBC Distribution Width CV 14.1 % (11.6-14.6); RBC Distribution Width SD 47.2 fl (35.1-43.9); Red Blood Count 4.46 M/mm3 (4.2-5.4); White Blood Count 7.1 K/mm3 (4.4-11.0)
[2017-10-25 10:38] LABS: Anion Gap 4 (5-15); BUN 13 mg/dL (7-18); BUN/Creat Ratio 18.2 RATIO (10-20); Calcium,Total 8.8 mg/dL (8.5-10.1); Chloride 103 mmol/L (98-107); Creatinine, Serum 0.72 mg/dL (0.55-1.02); EST Glomerular Filtration Rate 88 mL/min (>60); Est Glom Filt Rate - Afr Amer 106 mL/min (>60); Glucose 122 mg/dL (74-106); Potassium 3.8 mmol/L (3.5-5.1); Sodium Level 142 mmol/L (136-145)
== END ==
PROVIDERS: Family Provider Internal Medicine; PCP Internal Medicine; Visit Provider Internal Medicine
DX: E87.8 Other disorders of electrolyte and fluid balance, not elsewhere classified (principal); Z87.01 Personal history of pneumonia (recurrent)
CPT/HCPCS: 36415; 80048; 85025

== ENCOUNTER → 2017-11-18 09:30 | Outpatient (CLI) | payer MEDICARE, SELFPAY ==
[2017-11-18 11:37] LABS: Anion Gap 2 (5-15); BUN 13 mg/dL (7-18); BUN/Creat Ratio 17.1 RATIO (10-20); Calcium,Total 8.6 mg/dL (8.5-10.1); Chloride 102 mmol/L (98-107); Creatinine, Serum 0.76 mg/dL (0.55-1.02); EST Glomerular Filtration Rate 82 mL/min (>60); Est Glom Filt Rate - Afr Amer 99 mL/min (>60); Glucose 91 mg/dL (74-106); Potassium 3.7 mmol/L (3.5-5.1); Sodium Level 143 mmol/L (136-145)
== END ==
PROVIDERS: Family Provider Internal Medicine; PCP Internal Medicine; Visit Provider Internal Medicine
DX: I10 Essential (primary) hypertension (principal); E78.4 Other hyperlipidemia
CPT/HCPCS: 36415; 80048

== ENCOUNTER → 2017-11-30 07:43 | Outpatient (CLI) | payer MEDICARE, SELFPAY ==
--- NOTE | 2017-11-30 10:12 | PFTCOMP ---
COMPLETE PULMONARY FUNCTION TEST INTERPRETATION Brief HPI: Patient is a 62 year old female, currently under the care of Dr. Flannery, who presents to [facility] for complete pulmonary function tests secondary to diagnosis of COPD. Respiratory therapist reports good effort and reproducible results. Interpretation: Forced expiration spirometry shows a very severe large airways obstructive ventilatory defect with an FEV1 of 25% predicted. There is no significant bronchodilator response by ATS criteria. Spirograms are of good quality and plateau slowly, indicating slowly emptying areas of the lungs. The respiratory flow volume loop shows decreased expiratory flow rates at all lung volumes consistent with airway obstruction. Lung volumes by body plethysmography show a normal total lung capacity at 4.38 L, 98% predicted. FRC and RV are elevated out of proportion. Lung volume measurements are consistent with air-trapping. Diffusion capacity by carbon monoxide is decreased at 30% predicted. The airway resistance is elevated. No previous pulmonary function tests were available for review. Impression: Irreversible very severe large airways obstructive ventilatory defect resulting in air trapping with a symmetric reduction in diffusing capacity. These findings are consistent with patient's diagnosis of advanced COPD.
--- NOTE | 2017-11-30 10:26 | PFTCOMP_ITS ---
COMPLETE PULMONARY FUNCTION TEST INTERPRETATION Brief HPI: Patient is a 62 year old female, currently under the care of Dr. Flannery , who presents to [facility] for complete pulmonary function tests secondary to diagnosis of COPD. Respiratory therapist reports good effort and reproducible results. Interpretation: Forced expiration spirometry shows a very severe large airways obstructive ventilatory defect with an FEV1 of 25% predicted. There is no significant bronchodilator response by ATS criteria. Spirograms are of good quality and plateau slowly, indicating slowly emptying areas of the lungs. The respiratory flow volume loop shows decreased expiratory flow rates at all lung volumes consistent with airway obstruction. Lung volumes by body plethysmography show a normal total lung capacity at 4.38 L , 98% predicted. FRC and RV are elevated out of proportion. Lung volume measurements are consistent with air-trapping. Diffusion capacity by carbon monoxide is decreased at 30% predicted. The airway resistance is elevated. No previous pulmonary function tests were available for review. Impression: Irreversible very severe large airways obstructive ventilatory defect resulting in air trapping with a symmetric reduction in diffusing capacity. These findings are consistent with patient's diagnosis of advanced COPD.
== END ==
LOC: PSN 07:43
PROVIDERS: Family Provider Internal Medicine; PCP Internal Medicine; Visit Provider Internal Medicine Critical Care Medicine
DX: J44.9 Chronic obstructive pulmonary disease, unspecified (principal)
CPT/HCPCS: 94060; 94726; 94729

== ENCOUNTER → 2017-12-08 07:55 | Outpatient (CLI) | payer MEDICARE, SELFPAY ==
--- NOTE | 2017-12-08 07:55 | DT_ITS ---
This patient was seen during an EMR downtime December 06, 2017 - December 13, 2017. This patient may have a combination of paper and electronic documentation or all paper documentation. All documentation is viewable within the e-chart portion of [facility] for each patient visit.
[2017-12-08 11:50] VITALS: PULSE 71; PULSE 76; PULSE 80; PULSE 81; PULSE 82; PULSE 83; O2SAT 90; O2SAT 91; O2SAT 92; O2SAT 93; O2SAT 94; O2SAT 95; O2SAT 99
--- NOTE | 2017-12-13 11:39 | PCM.PSN.6M ---
PSN 6 Minute Walk Test - Interpretation Interpretation: The patient ambulated 649 feet over the course of 6 minutes beginning on room air without assistive devices or breaks. Pretesting oxygen saturation was noted to be 85% on room air. 2 L/min of supplemental oxygen was applied prior to testing. Pretesting oxygen saturation on 2 L/min was 99%. With ambulation, the yina oxygen saturation was 90%. This represents a significant exertional oxygen desaturation. There was also evidence of impaired walk distance. - Recommendations Recommendations: 2 L/min of supplemental oxygen should be utilized both at rest and with exertion.
--- NOTE | 2017-12-13 11:57 | CPS ---
Testing done by Katheryn Recio RRT. Patient was 85% on room air resting. Placed patient on 2 lpm for testing. Patient has 2lpm O2 at home.
== END ==
PROVIDERS: Family Provider Internal Medicine; PCP Internal Medicine; Visit Provider Internal Medicine Critical Care Medicine
DX: J44.9 Chronic obstructive pulmonary disease, unspecified (principal)
CPT/HCPCS: 94618

== ENCOUNTER → 2018-01-18 13:18 | Outpatient (CLI) | payer MEDICARE, SELFPAY ==
--- NOTE | 2018-01-18 13:25 | BD_ITS ---
STUDY: DUAL ENERGY X-RAY ABSORPTIOMETRY / DXA REASON FOR EXAM: Female, 62 years old. The patient is postmenopausal. No loss of height. TECHNIQUE: Bone Mineral Density (BMD) measurements of lumbar spine and bilateral hips were obtained. COMPARISON: None. FINDINGS: Lumbar Spine (L1-L4): g/cm2 (1.070) / T-score (-0.9) / Z-score (0.5) Findings are suggestive of normal bone density with a low fracture risk. Left Femur Total: g/cm2 (0.937) / T-score (-0.6) / Z-score (0.5) Left Femoral Neck: g/cm2 (0.849) / T-score (-1.4) / Z-score (0.0) Right Femur Total: g/cm2 (0.910) / T-score (-0.8) / Z-score (0.3) Right Femoral Neck: g/cm2 (0.830) / T-score (-1.5) / Z-score (-0.1) BD/Dexa Bone Density Study IMPRESSION: The patient is considered osteopenic as outlined below according to World Charanjit Organization (WHO) criteria with a moderate fracture risk. Reference Information: The T-score is the number of standard deviations above or below the standard which is normal for young adults at their peak bone mineral density. The World Health Organization (WHO) interprets the T-scores as follows: Above -1 Normal bone density Between -1 and -2.5 Osteopenia Equal to / or below -2.5 Osteoporosis As a practical clinical guideline, osteopenia may be graded as follows: Mild -1 through -1.5 Moderate -1.6 through -2.0 Severe -2.1 through -2.4 The Z-score is the number of standard deviations above or below age-matched controls. A Z-score of less than -1.5 would be considered abnormal. References: 1. NIH Osteoporosis and Related Bone Diseases http://www.osteo.org 2. International Society for Clinical Densitometry http://www.iscd.org 3. National Osteoporosis Foundation http://www.nof.org Electronically Signed: Vinny Mcghee MD at 15:39 EDT Tel [phone], Service support ,
== END ==
PROVIDERS: Family Provider Internal Medicine; PCP Internal Medicine; Visit Provider Internal Medicine
DX: Z78.0 Asymptomatic menopausal state (principal)
CPT/HCPCS: 77080

== ENCOUNTER → 2018-02-01 22:35 | Outpatient (CLI) | payer MEDICARE, MEDICAID, SELFPAY | PROVIDERS: Family Provider Internal Medicine; PCP Internal Medicine; Visit Provider Internal Medicine Critical Care Medicine | DX: G47.33 Obstructive sleep apnea (adult) (pediatric) (principal) | CPT/HCPCS: 95811 ==

== ENCOUNTER → 2018-04-13 14:07 | Outpatient (CLI) | payer MEDICARE, SELFPAY ==
[2018-04-13 16:47] LABS: Anion Gap 1 (5-15); BUN 18 mg/dL (7-18); BUN/Creat Ratio 22.5 RATIO (10-20); Chloride 102 mmol/L (98-107); EST Glomerular Filtration Rate 77 mL/min (>60); Est Glom Filt Rate - Afr Amer 93 mL/min (>60); Glucose 83 mg/dL (74-106); Potassium 4.3 mmol/L (3.5-5.1); Sodium Level 139 mmol/L (136-145)
== END ==
PROVIDERS: Family Provider Internal Medicine; PCP Internal Medicine; Referring Provider Internal Medicine; Visit Provider Internal Medicine
DX: I10 Essential (primary) hypertension (principal)
CPT/HCPCS: 36415; 80048

== ENCOUNTER 2018-07-20 14:51 | Emergency (ER) | payer MEDICARE, MEDICAID, SELFPAY ==
[2018-06-15 10:36] VITALS: BMI 24.4
[2018-07-20 14:52] VITALS: BP 97/61; PULSE 88; RESP 16; TEMP 37.1; O2SAT 89; BMI 24.7
[2018-07-20 14:55] VITALS: O2SAT 91
[2018-07-20 15:42] VITALS: TEMP 37.1
[2018-07-20 16:04] VITALS: TEMP 37.1
--- NOTE | 2018-07-20 16:05 | ED.DCSUM_ITS ---
- ER Visit Summary Date of Service: 07/20/18 Chief Complaint: Sore throat History of Present Illness: The patient is a 62 F with a sore throat that started today. The patient was referred to the emergency department by her neurologist. She reports a sore throat, fevers, chills, and left ear pain. She has a history of COPD and wears home oxygen as needed and at nighttime. No current antibiotics or steroids. Physical Examination: Afebrile and vital signs unremarkable. Pulse ox is 91% on room air. Patient is alert and oriented. Appears comfortable. No acute distress. HEENT exam is unremarkable except for posterior oropharyngeal erythema and cobblestoning. No exudates or masses. She does have bilateral cervical lymphadenopathy anteriorly. Good range of motion of her neck. No meningeal signs. Skin appears normal. Cranial nerves grossly intact. No stridor. Airway intact. Lungs clear. Heart regular. Test Results: None indicated Emergency Department Course and Treatment: Patient will be treated with azithromycin and prednisone. She may use ridm-ivd-bbddovy remedies for pain and fever. Follow-up with her doctor. Return for any new or worsening issues. Treatment Plan: As above Disposition: Discharge Impression: 1. Pharyngitis This note was generated with [employer] dictation software. It may contain incorrect words, spelling, and punctuation that were not noted in review of the chart prior to signing ED Disposition - Plan for ED Patient: Chief Complaint: General Illness Referrals: Glenn Ulloa MD [Primary Care Provider] -
--- NOTE | 2018-07-20 16:05 | ED.DEP ---
ED Disposition - Plan for ED Patient: Chief Complaint: General Illness Instructions: ED Strep Pharyngitis Poss Prescriptions: Azithromycin 250 mg PO DAILY 4 Days #4 tab Prednisone 10 mg PO UD #33 tab Referrals: Glenn Ulloa MD [Primary Care Provider] -
[2018-07-20] MEDS: Azithromycin 250 MG Tablet 500 MG PO (16:08)
[2018-07-20] MEDS: predniSONE 20 MG Tablet 60 MG PO (16:08)
--- OUTSIDE RECORDS SUMMARY | 2018-09-24 15:19 | XMS RPT_ITS ---
:1955 Author Organization OHIP Support Name Relationship Address Phone D Unavailable Unavailable Unavailable HARSHAD, DEX Unavailable [address] + [place] [address] D Unavailable Unavailable Unavailable HARSHAD, DEX Unavailable [address] + [place] [address] D Unavailable Unavailable Unavailable HARSHAD, DEX Unavailable [address] + [place] [address] D Unavailable Unavailable Unavailable HARSHAD, DEX Unavailable [address] + [place] [address] D Unavailable Unavailable Unavailable HARSHAD, DEX Unavailable [address] + [place] [address] D Unavailable Unavailable Unavailable HARSHAD, DEX Unavailable [address] + [place] [address] D Unavailable Unavailable Unavailable HARSHAD, DEX Unavailable [address] + [place] [address] D Unavailable Unavailable Unavailable HARSHAD, DEX Unavailable [address] + [place] [address] D Unavailable Unavailable Unavailable HARSHAD, DEX Unavailable [address] + [place] [address] D Unavailable Unavailable Unavailable HARSHAD, DEX Unavailable [address] + [place] [address] D Unavailable Unavailable Unavailable HARSHAD, DEX Unavailable [address] + [place] [address] D Unavailable Unavailable Unavailable HARSHAD, DEX Unavailable [address] + [place] [address] D Unavailable Unavailable Unavailable HARSHAD, DEX Unavailable [address] + [place] [address] D Unavailable Unavailable Unavailable HARSHAD, DEX Unavailable [address] + [place] [address] D Unavailable Unavailable Unavailable HARSHAD, DEX Unavailable [address] + [place] [address] D Unavailable Unavailable Unavailable HARSHAD, DEX Unavailable [address] + [place] [address] D Unavailable Unavailable Unavailable HARSHAD, DEX Unavailable [address] + [place] [address] D Unavailable Unavailable Unavailable HARSHAD, DEX Unavailable [address] + [place] [address] D Unavailable Unavailable Unavailable HARSHAD, DEX Unavailable [address] + [place] [address] D Unavailable Unavailable Unavailable HARSHAD, DEX Unavailable [address] + [place] [address] D Unavailable Unavailable Unavailable HARSHAD, DEX Unavailable [address] + [place] [address] D Unavailable Unavailable Unavailable HARSHAD, DEX Unavailable [address] + [place] [address] D Unavailable Unavailable Unavailable HARSHAD, DEX Unavailable [address] + [place] [address] D Unavailable Unavailable Unavailable HARSHAD, DEX Unavailable [address] + [place] [address] D Unavailable Unavailable Unavailable HARSHAD, DEX Unavailable [address] + [place] [address] D Unavailable Unavailable Unavailable HARSHAD, DEX Unavailable [address] + [place] [address] D Unavailable Unavailable Unavailable HARSHAD, DEX Unavailable [address] + [place] [address] D Unavailable Unavailable Unavailable HARSHAD, DEX Unavailable [address] + [place] [address] D Unavailable Unavailable Unavailable HARSHAD, DEX Unavailable [address] + [place] [address] D Unavailable Unavailable Unavailable HARSHAD, DEX Unavailable [address] + [place] [address] D Unavailable Unavailable Unavailable HARSHAD, DEX Unavailable [address] + [place] [address] D Unavailable Unavailable Unavailable HARSHAD DEX Unavailable [address] + [place] [address] D Unavailable Unavailable Unavailable HARSHAD DEX Unavailable [address] + [place] [address] D Unavailable Unavailable Unavailable HARSHAD DEX Unavailable [address] + [place] [address] D Unavailable Unavailable Unavailable HARSHAD DEX Unavailable [address] + [place] [address] D Unavailable Unavailable Unavailable HARSHAD DEX Unavailable [address] + [place] [address] D Unavailable Unavailable Unavailable HARSHAD DEX Unavailable [address] + [place] [address] D Unavailable Unavailable Unavailable HARSHAD DEX Unavailable [address] + [place] [address] D Unavailable Unavailable Unavailable HARSHAD DEX Unavailable [address] + [place] [address] Care Team Providers Name Role Phone JOY COHN Attending Unavailable DYLON MOONEY Referring Unavailable Severo Neal Attending Unavailable Oleghe, Efewongbe Referring Unavailable Oleghe, Efewongbe Primary Care Unavailable Patel Ragland Attending Unavailable Oleghe, Efewongbe Attending Unavailable Oleghe, Efewongbe Referring Unavailable Oleghe, Efewongbe Attending Unavailable Oleghe, Efewongbe Referring Unavailable Oleghe, Efewongbe Primary Care Unavailable [facility], Joy Primary Care Unavailable Darrick Mckeon Attending Unavailable [facility], Joy Primary Care Unavailable Jadon Fagan Admitting Unavailable Anurag Flannery D.O. Consulting Unavailable Barb Rosenthal Attending Unavailable Jadon Fagan Attending Unavailable Joy Cohn Primary Care Unavailable Jadon Fagan Admitting Unavailable Anurag Flannery D.O. Attending Unavailable Joy Cohn Primary Care Unavailable Anurag Flannery D.O. Consulting Unavailable Barb Rosenthal Consulting Unavailable Jadon Fagan Admitting Unavailable Anurag Flannery D.O. Attending Unavailable [facility], Joy Primary Care Unavailable Kaley WillardO. Consulting Unavailable Sementi, Barb Consulting Unavailable Fagan, Jadon Admitting Unavailable SergAlpa MILKING MACHINE TECHNICIAN-C Attending Unavailable [facility] Care Unavailable Brett Willard.O. Consulting Unavailable Sementi, Barb Consulting Unavailable Fagan, Jadon Admitting Unavailable Brett Willard.O. Attending Unavailable M[facility] With [facility] Care Unavailable Brett Willard.O. Consulting Unavailable Sementi, Barb Consulting Unavailable Fagan, Jadon Admitting Unavailable SergAlpa MILKING MACHINE TECHNICIAN-C Attending Unavailable Merged With [facility] Care Unavailable Brett Willard.O. Consulting Unavailable Sementi, Barb Consulting Unavailable Fagan, Jadon Admitting Unavailable Brett Willard.O. Attending Unavailable Merged With [facility] Care Unavailable Brett Willard.O. Consulting Unavailable Sementi, Barb Consulting Unavailable Fagan, Jadon Admitting Unavailable Sementi, Barb Attending Unavailable M[facility] With [facility] Care Unavailable Brett Willard.O. Consulting Unavailable Sementi, Barb Consulting Unavailable Fagan, Jadon Admitting Unavailable Sementi, Barb Attending Unavailable [facility] With [facility] Care Unavailable Brett Willard.O. Consulting Unavailable Sementi, Barb Consulting Unavailable Sementi, Barb Attending Unavailable Fagan, Jadon Admitting Unavailable M[facility] With [facility] Care Unavailable Brett Willard.O. Consulting Unavailable Sementi, Barb Consulting Unavailable Merged With [facility] Care Unavailable Patel Ragland Attending Unavailable Ema Stevens Attending Unavailable [facility] Referring Unavailable Mike Duarte Attending Unavailable [facility] Care Unavailable Mike Duarte Attending Unavailable Mike Duarte Referring Unavailable Merg[facility] With [facility] Care Unavailable Shahzad Long Attending Unavailable Fagan, Jadon Referring Unavailable Oleghe, Efewongbe Attending Unavailable Oleghe, Efewongbe Referring Unavailable [facility] Primary Care Unavailable Oleghe, Efewongbe Attending Unavailable Oleghe, Efewongbe Referring Unavailable Oleghe, Efewongbe Primary Care Unavailable Oleghe, Efewongbe Attending Unavailable Oleghe, Efewongbe Referring Unavailable Oleghe, Efewongbe Primary Care Unavailable Oleghe, Efewongbe Attending Unavailable Oleghe, Efewongbe Referring Unavailable Oleghe, Efewongbe Primary Care Unavailable Anurag Flannery D.O. Attending Unavailable Oleghe, Efewongbe Referring Unavailable Oleghe, Efewongbe Primary Care Unavailable Anurag Flannery D.O. Attending Unavailable Anurag Flannery D.O. Referring Unavailable Oleghe, Efewongbe Primary Care Unavailable Anurag Flannery D.O. Attending Unavailable Anurag Flannery D.O. Referring Unavailable Oleghe, Efewongbe Primary Care Unavailable Anurag Flannery D.O. Attending Unavailable Brett Willard.OHelio Referring Unavailable Oleghe, Efewongbe Primary Care Unavailable Mike Duarte Attending Unavailable Brett Willard.Roe Referring Unavailable Anurag Flannery D.O. Attending Unavailable Oleghe, Efewongbe Referring Unavailable Anurag Flannery D.O. Attending Unavailable Brett Willard.Roe Referring Unavailable Oleghe, Efewongbe Attending Unavailable Oleghe, Efewongbe Referring Unavailable Oleghe, Efewongbe Primary Care Unavailable Oleghe, Efewongbe Attending Unavailable Oleghe, Efewongbe Primary Care Unavailable Shahzad Long Attending Unavailable Oleghe, Efewongbe Referring Unavailable Oleghe, Efewongbe Primary Care Unavailable Ema Stevens Attending Unavailable Oleghe, Efewongbe Referring Unavailable Oleghe, Efewongbe Attending Unavailable Oleghe, Efewongbe Referring Unavailable Oleghe, Efewongbe Attending Unavailable Oleghe, Efewongbe Referring Unavailable Oleghe, Efewongbe Primary Care Unavailable Ema Stevens Attending Unavailable Oleghe, Efewongbe Referring Unavailable DYLON MOONEY Attending Unavailable JOY COHN Referring Unavailable DYLON MOONEY Attending Unavailable Joy Cohn Referring Unavailable Joy Cohn Primary Care Unavailable DYLON MOONEY Attending Unavailable DYLON MOONEY Referring Unavailable Joy Cohn Primary Care Unavailable PROBLEMS PROBLEMS DATE TYPE CONDITION / CODE ATTENDING STATUS SOURCE Unknown I10 - Essential (primary) Oleghe, Active [place] 9 hypertension / [facility] I10(ICD-10) Hospital Repository Unknown R25.2 - Cramp and spasm / Oleghe, Active [place] 9 R25.2(ICD-10) [facility] Rep[facility] Unknown G47.00 - Insomnia, Oleghe, Active [place] [facility] unspecified / [facility] G47.00(ICD-10) Hospital Repository Unknown I42.9 - Cardiomyopathy, Severo Neal Active [place] 8 unspecified / [facility] I42.9(ICD-10) Hospital Repository Unknown J44.9 - Chronic Stevens, Active [place] 9 obstructive pulmonary [facility] disease, unspecified / Hospital J44.9(ICD-10) Repository Unknown G47.33 - Obstructive Stevens, Active [place] 9 sleep apnea (adult) [facility] (pediatric) / Hospital G47.33(ICD-10) Repository Unknown Z00.00 - Encounter for Dorothye, Active [place] 9 general adult medical [facility] examination without Hospital abnormal findings / Repository Z00.00(ICD-10) Unknown Z23 - Encounter for Stevens, Active [place] 9 immunization / [facility] Z23(ICD-10) Hospital Repository Unknown 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, [place] Active [place] 9 infarction / Community I25.2(ICD-10) Hospital Repository Unknown E78.00 - Pure Ethan, Shahzad Active [place] 9 hypercholesterolemia, Community unspecified / Hospital E78.00(ICD-10) Repository Unknown E78.0 - Pure Ethan, [place] Active [place] 9 hypercholesterolemia / Community E78.0(ICD-10) Hospital Repository Unknown I50.20 - Unspecified Oleghe, Active [place] 8 systolic (congestive) [facility] heart failure / Hospital I50.20(ICD-10) Repository Unknown Z78.0 - Asymptomatic Oleghe, Active [place] 8 menopausal state / [facility] Z78.0(ICD-10) Hospital Repository Unknown J96.11 - Chronic Anurag Brown, Active [place] 8 respiratory failure with D.O. Community hypoxia / J96.11(ICD-10) Hospital Repository Unknown J44.1 - Chronic Oleghe, Active [place] 9 obstructive pulmonary [facility] disease with (acute) Hospital exacerbation / Repository J44.1(ICD-10) Unknown Z87.01 - Personal history Artemio, Active [place] 9 of pneumonia (recurrent) [facility] / Z87.01(ICD-10) Hospital Repository Unknown E87.8 - Other disorders Oleadolfoe, Active [place] 9 of electrolyte and fluid [facility] balance, not elsewhere Hospital classified / Repository E87.8(ICD-10) Unknown F41.9 - Anxiety disorder, Oleghe, Active [place] [facility] unspecified / [facility] F41.9(ICD-10) Hospital Repository Unknown 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, 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 / [facility] E87.4(ICD-10) Hospital Repository Unknown G47.19 - Other Stevens, Active [place] 8 hypersomnia / [facility] G47.19(ICD-10) Hospital Repository Unknown J96.02 - Acute Stevens, Active [place] 8 respiratory failure with [facility] hypercapnia / Hospital J96.02(ICD-10) Repository Unknown I25.10 - Atherosclerotic Ethan, Shahzad Active [place] 8 heart disease of [place] Community coronary artery without Hospital angina pectoris / Repository I25.10(ICD-10) Unknown J96.00 - Acute Sementi, Active [place] 8 respiratory failure, [facility] unspecified whether with Hospital hypoxia or hypercapnia / Repository J96.00(ICD-10) Active Other cardiomyopathies / NA Active [place] 8 I42.8(ICD-10) [facility] [place] Repository Active Essential (primary) NA Active [place] 8 hypertension / [facility] I10(ICD-10) [place] Repository Admitting Unknown / UNK(Unknown) JESICA Active [facility] 8 diagnosis [facility] Repository PROCEDURES PROCEDURES No Procedure Records FoundRESULTS RESULTS INTERNAL MEDICINE Observed: 07/25/2018 Status: F Source: [place] OFFICE VISIT 9:01 AM [facility] [address] [place] [address] [place] [address] OFFICE VISIT Date of Service: 07/22/18 MR#: [id number] Acct: [id number] Name: LUIZA MAY Rep #: [id number] : 1955 Provider: Glenn Ulloa MD Age/Sex: 62/F Location: [facility] Status: Signed Intake Vital Signs07/22/18 Body Mass Index (BMI) 24.7 07/22/18 Height 5 ft 3 in Intake Visit Reasons: 3 MO FU Chief Complaint: follow-up visit Is patient in pain?: No Allergies tetanus and diphtheria toxoids [tetanus AND diphtheria toxoids] Allergy (Verified 07/20/18 14:55) Hives Medications Albuterol IH (ProAir) [Proair Hfa] 1 puff INHALATION Q4H PRN PRN #1 inhaler 09/17/17 [Rx Confirmed 07/20/18] tiotropium bromide 2.5 mcg/actuation mist for inhalation 2 puff INHALATION QDAY #1 device 12/30/17 [Rx Confirmed 07/20/18] escitalopram 10 mg tablet 15 mg PO QDAY #180 tab 01/12/18 [Rx Confirmed 07/20/18] aspirin 81 mg tablet,delayed release 81 mg PO DAILY #90 tab 03/02/18 [Rx Confirmed 07/20/18] folic acid 1 mg tablet 1 mg PO DAILY #90 tab 03/02/18 [Rx Confirmed 07/20/18] pantoprazole 40 mg tablet,delayed release 40 mg PO QAM #90 tab 03/02/18 [Rx Confirmed 07/20/18] spironolactone 25 mg tablet 25 mg PO QAM #90 tab 03/02/18 [Rx Confirmed 07/20/18] atorvastatin 20 mg tablet 20 mg PO QDAY #90 tab 04/21/18 [Rx Confirmed 07/20/18] carvedilol 12.5 mg tablet 12.5 mg PO BID #90 tab 06/06/18 [Rx Confirmed 07/20/18] multivitamin tablet 1 tab PO DAILY 06/15/18 [History Confirmed 07/20/18] Azithromycin 250 mg PO DAILY 4 Days #4 tab 07/20/18 [Rx] Prednisone 10 mg PO UD #33 tab 07/20/18 [Rx] lisinopril 5 mg tablet 5 mg PO DAILY #90 tab 07/22/18 [Rx Confirmed 07/22/18] zolpidem 10 mg tablet 10 mg PO QHS PRN #30 tab 07/22/18 [Rx Confirmed 07/22/18] Post menopausal: Yes PFSH Medical History History of ETOH abuse (Chronic) History of stroke (Chronic 02/03/17) History of non-ST elevation myocardial infarction (NSTEMI) (Chronic 02/03/17) History of DVT of lower extremity (Chronic 02/11/17) History of pneumonia (Acute) Hyperlipidemia (Chronic) Hypertension (Chronic) Hemorrhagic cerebrovascular accident (CVA) (Resolved) Heart failure with reduced ejection fraction (Chronic) Metabolic encephalopathy (Acute) Upper GI bleed (Acute) Transaminitis (Acute) Elevated serum creatinine (Acute) COPD (chronic obstructive pulmonary disease) (Suspected) PRES (posterior reversible encephalopathy syndrome) (Acute) Acute respiratory failure (Resolved) Surgical History H/O: section (Resolved) History of lumpectomy (Resolved) History of cholecystectomy (Resolved) Hx of appendectomy (Acute) Family History Sister Cancer lung Father Cancer lung Mother Cancer lung Social History Smoking Status: Never smoker how long ago did patient quit smokin, 1pk/day second hand exposure: Yes alcohol intake: former substance use type: does not use what type of physical activity do you participate in: walking frequency: daily HPI HPI Chief Complaint: follow-up visit Details: LUIZA MAY, is a 62yo F who presents to the office today for follow-up of her chronic medical conditions. She has no acute concerns at this time. She was seen in the ER about 2 days ago for significant sore throat and was started on azithromycin and prednisone. Symptoms are said to have improved now. She denies chills, fever or feeling of unwell. She also denies shortness of breath. She has been tried on the BiPAP however due to significant anxiety/PTSD was unable to follow through with treatment. She continues to follow-up closely with pulmonary. Blood pressure in office low at 89/55 mmHg. Also, during her emergency room visit, her blood pressure was also noted to be low. She denies dizziness/lightheadedness, syncopal or near syncopal episodes. ROS Const Constitutional: No weight change, body ache, chills, fatigue, sleep problems, fever(s), change in appetite, snoring, weakness, frequent falls, headache(s) or excessive sweating Eyes Eyes: No change in vision, eye pain, light sensitivity or blurry vision ENT ENT: No headache(s), abnormal hearing, ear pain, tinnitus, nasal congestion, sore throat or neck pain Resp Respiratory: No snoring, cough, shortness of breath or wheezing Cardio Cardiology: No excessive sweating, chest pain at rest, chest pain with exertion, shortness of breath, dyspnea on exertion, palpitations, orthopnea or lightheadedness Gastro GI: No abdominal pain, change in bowel habits, constipation, diarrhea, vomiting, nausea/dyspepsia or cramping Genitourinary-Female: No burning urination, painful urination, urinary incontinence, urinary frequency, abnormal vaginal bleeding, pelvic pain or other Musc Musculoskeletal: No neck pain, abnormal walking, joint pain, back pain, limited range of motion, numbness or tingling Skin Skin: No redness, dry skin, itching, lesions, wounds or rash Neuro Neurology: No weakness, frequent falls, headache(s), abnormal hearing, abnormal walking, numbness, tingling, abnormal speech, dizziness or memory loss Psych Psychiatric: No change in appetite, No memory loss, No anxiety, No depression, No Thoughts of harming yourself/Others Endo Endocrine: No fatigue, excessive sweating, cold intolerance, increased thirst/drinking, heat intolerance, flushing or increased hunger Aller/Imm Allergy/Immunologic: No wheezing, itchy eyes, hives or seasonal allergy symptoms Justus/Lymp Hematologic/Lymphatic: No easy bleeding, easy bruising or enlarged lymph nodes Exam Const General: cooperative, no acute distress Orientation: alert, awake, oriented x3 [facility] Head: atraumatic, normocephalic, normal to inspection Ears: hearing grossly normal bilaterally Resp Effort AND Inspection: normal respiratory effort, able to speak in complete sentences Auscultation: Bilateral: Clear to Auscultation Cardio Rate: regular rate Rhythm: regular rhythm Heart Sounds: S1 normal, S2 normal GI Palpation: soft, no hepatosplenomegaly Neuro General: alert, awake, oriented x3, moves all extremities, CN's II-XI intact bilaterally Extrem General: no clubbing, cyanosis or edema Psych Appearance: grossly normal Mood: congruent mood Affect: normal affect Assessment AND Plan 1. Pharyngitis J02.9 Plan Recently had an acute episode for which she was seen in the emergency room. Has done well on azithromycin and prednisone. Continue current management. 2. Essential hypertension I10 Plan Blood pressure low. Blood pressure in office at 89/55 mmHg. In the emergency room, her blood pressure was also in the 90s systolic. Reduce lisinopril to 5 mg daily. Advised to keep a blood pressure log. Continue other medications for now. Advised to call in 1 week with her blood pressure readings. Will adjust as necessary Orders Orders: 3. Nocturnal leg cramps G47.62 Plan Reports leg cramps which is said to be predominantly at night. No other concerns. BMP and magnesium ordered. Advised to take tonic water (with quinine) at night. If no significant improvement, will consider other management. 4. TIO (obstructive sleep apnea) G47.33 Unable to tolerate Pap therapy, discontinuing use Plan Due to anxiety/PTSD, unable to tolerate Pap therapy. Continue management as per pulmonary. 5. Insomnia G47.00 Plan Chronic. Doing well on Ambien. Refills given. This note was generated with [employer] dictation software. It may contain incorrect words, spelling, and punctuation that were not noted in checking the note before signing. Medications Refilled: Plan Detail Other Orders Orders: Other Medications Changed: Coding Level of Care Code Off vis,est,level 4 Diagnoses Pharyngitis J02.9 Essential hypertension I10 Hypertension type: essential hypertension Nocturnal leg cramps G47.62 TIO (obstructive sleep apnea) G47.33 Insomnia G47.00 07/25/18 0901 <Electronically signed by Glenn Ulloa MD> Date Glenn Ulloa MD Cosigner Signature: Date (if applicable) CC: BASIC METABOLIC Collected: 07/22/2018 Status: F Source: [place] PROFILE (BMP) 2:39 PM [facility] TYPE CODE TESTS RESULT OUT OF RANGE REFERENCE UNITS LAB L501.0100 74-106 mg/dL High GLU 141 Result Comment: Fasting Glucose result greater than or equal to 126 mg/dL suggests DIABETES MELLITUS per A.D.A. criteria. Please note revised GLUCOSE reference range effective 2017. LAB L501.1000 7-18 mg/dL Normal BUN 17 LAB L501.1100 0.55-1.02 mg/dL Normal CREAT,SERUM 0.81 Result Comment: The validity of the calculated GFR AND GFRAA in patients over 70 years has not been determined. Clinical correlation is essential. LAB L501.1110 >60 mL/min Normal EST GFR 76 Result Comment: Non- GFR Calc LAB L501.1115 >60 mL/min Normal EST GFR - AA 92 Result Comment: GFR Calc LAB L501.1300 10-20 RATIO High BUN/CRE 21.0 LAB L501.2200 8.5-10.1 mg/dL CA Normal 8.6 LAB L501.5300 136-145 mmol/L NA Normal 142 LAB L501.5600 3.5-5.1 mmol/L K Normal 4.1 Result Comment: Slight Hemolysis, Result may be falsely increased. LAB L501.5900 98-107 mmol/L Normal CL 102 LAB L501.6100 21.0-32.0 mmol/L High CO2 35.0 LAB L501.6200 5-15 Normal 5 GAP Performed By: #### L500.2500, L501.5200 #### [facility] [address] [place], [place], [address] MAGNESIUM Collected: 07/22/2018 Status: F Source: [place] 2:39 PM [facility] TYPE CODE TESTS RESULT OUT OF RANGE REFERENCE UNITS LAB L501.5200 1.6-2.6 mg/dL Normal MG 1.9 Result Comment: Slight Hemolysis, Result may be falsely increased. Performed By: #### L500.2500, L501.5200 #### [facility] [address] [place], [address] EMERGENCY DEPARTMENT Observed: 07/20/2018 Status: F Source: [place] SUMMARY 11:50 PM [facility] Medical Records Department [address] [place] [address] Emergency Department Summary 07/20/18 1603 MR#: [id number] Acct: [id number] Name: LUIZA MAY Rep #: [id number] : 1955 62 From: Patel Ragland MD PCP: Glenn Ulloa MD Status: DEP ER - ER Visit Summary Date of Service: 07/20/18 Chief Complaint: Sore throat History of Present Illness: The patient is a 62 F with a sore throat that started today. The patient was referred to the emergency department by her neurologist. She reports a sore throat, fevers, chills, and left ear pain. She has a history of COPD and wears home oxygen as needed and at nighttime. No current antibiotics or steroids. Physical Examination: Afebrile and vital signs unremarkable. Pulse ox is 91% on room air. Patient is alert and oriented. Appears comfortable. No acute distress. HEENT exam is unremarkable except for posterior oropharyngeal erythema and cobblestoning. No exudates or masses. She does have bilateral cervical lymphadenopathy anteriorly. Good range of motion of her neck. No meningeal signs. Skin appears normal. Cranial nerves grossly intact. No stridor. Airway intact. Lungs clear. Heart regular. Test Results: None indicated Emergency Department Course and Treatment: Patient will be treated with azithromycin and prednisone. She may use [id number] remedies for pain and fever. Follow-up with her doctor. Return for any new or worsening issues. Treatment Plan: As above Disposition: Discharge Impression: 1. Pharyngitis This note was generated with MediWound dictation software. It may contain incorrect words, spelling, and punctuation that were not noted in review of the chart prior to signing ED Disposition - Plan for ED Patient: Chief Complaint: General Illness Referrals: Glenn Ulloa MD [Primary Care Provider] - What to do if you have Problems For any increased pain, shortness of breath, bleeding, nausea or vomiting, chest pain, or any unexpected problems, contact your Primary Care Provider. Call [facility] ([phone]) or report to the closest Emergency Room. Call 911 if necessary. 07/20/18 5830 <Electronically signed by Patel Ragland MD> Date Patel Calvo Signature (If Indicated): Date CC: Glenn Ulloa MD DISCHARGE INSTRUCTION Observed: 07/20/2018 Status: F Source: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 eye pain, swallowing Difficulty, ear pain, nose bleed, headache(s), mouth pain, nasal congestion, nasal discharge, post nasal drip, sinus pain, sinus pressure, sore throat or other Cardio Cardiovascular: Negative chest pain, chest pain at rest, chest pain with activity, irregular heart rhythm, edema, shortness of breath when lying down, palpitations, murmur or other Resp Respiratory: Positive as per HPI; negative shortness of breath, pain with cough, wheezing, chest congestion, cough, chest tightness, pain on inspiration, inhalers, increase use of rescue inhalers, snoring, apnea or other Gastro Gastrointestional: Negative bloody stools, change in appetite, difficulty swallowing, reflux, hematemesis, melena stool, loose stool, constipation or other Genitourinary: Negative blood in urine, nocturia, pain with urination or other Musc Musculoskeletal: Negative body pain, back pain, neck pain or other Skin/Breast Skin/Breast: Negative dry skin, itching, rash, unusual bruising, breast lump or other Neuro Neurological: Negative restless legs, confusion, weakness or other Psych Psychocological: Positive anxiety; negative abnormal sleep pattern, thoughts of hurting self/others, hopelessness or other Lymph Lymphatic: Negative easy bleeding, easy bruising, swollen lymph nodes or other Exam Const Constitutional: Positive conversant, cooperative, in no acute respiratory distress and appears older than stated age; negative healthy appearing, smells of smoke, obese or wearing supplemental oxygen Head Head: Positive normocephalic and atraumatic; negative cyanosis of lips/distal nose, frontal sinus tenderness or maxillary sinus tenderness Eyes Eye: Positive clear conjunctiva Ears Ear: Positive hearing normal and external ears normal; negative hard of hearing Nose Nose: Positive external nose normal; negative epistaxis, no nasal discharge, clear nasal discharge or purulent nasal discharge Mouth Mouth: Positive oral mucosae normal and posterior oropharynx is adequate; negative post nasal drip Neck Neck: Positive normal visual inspection, full ROM and trachea midline; negative tender Chest Wall Chest: Positive normal inspection of the chest and symmetric chest movement; negative tenderness Resp lung sounds: Positive clear to auscultation, good air exchange and normal expiratory time; negative wheeze present on forced exhalation, prolonged expiratory time, increased work of breathing or use of accessory muscles Cardio Cardiac: Positive regular rate and regular rhythm; negative murmur GI GI: Positive normal to inspection and normal bowel sounds; negative obese or distended Genitourinary: Positive deferred Musc Musculoskeletal: Positive steady gait and ROM normal; negative using an assistive device for ambulation or in a wheelchair Skin Pulmonary Skin Exam: Positive intact; negative rash, lesion, erythema or ulcers Pulses Pulse: Yes pulses normal x4 extremities Extremities Extremities: No cyanosis, No edema, Yes capillary refill normal Neuro Neurologic: Yes conversant, Yes no focal neuro deficits, Yes normal coordination, Yes understands questions Lymph Lymphatic: No lymphadenopathy, No tenderness, No cervical adenopathy Psych Appearance: Positive grossly normal and eye contact Mental Status: Positive mental status grossly normal Mood: Positive congruent mood Affect: Positive normal affect Office Meds Flucelvax Quad [id number] (PF) Performing Provider: FRED Peoples Administered by: April Carmona on 04/12/18 09:36 Dose Route Admin Location Lot Number Expiration Date NDC Wrapper Layer 0.5 mL IM Lt Deltoid [id number] 12/03/18 69331-992-02 SEQIRUS Coding Level of Care Code Off vis,est,level 4 Diagnoses TIO (obstructive sleep apnea) G47.33 Chronic obstructive pulmonary disease, unspecified COPD type J44.9 COPD type: unspecified COPD Anxiety F41.9 04/12/18 1259 <Electronically signed by Ema IBARRA> Date Ema IBARRA Cosigner Signature: Date (if applicable) CC: Glenn Ulloa MD CARDIOLOGY VISIT Observed: 02/17/2018 Status: F Source: [facility] REPORT 4:37 PM [facility] [address] [place] [address]. [address] [place] [address] OFFICE VISIT Date of Service: 02/16/18 MR#: [id number] Acct: [id number] Name: LUIZA MAY Rep #: [id number] : 1955 Provider: Shahzad Long MD Age/Sex: 62/F Location: [facility] Status: Signed HPI [facility] Chief Complaint: Initial visit. Details: LUIZA MAY, is a 62 F who presents to the office today for an initial visit. She is a pleasant lady who had presented to [facility] to emergency room in February of this year with several episodes of hematemesis. It appear that she was in alcohol withdrawal as well and was transferred to [facility]. During her hospitalization there she was noted to have a type II non-ST elevation myocardial infarction but no procedure was undertaken due to possible GI bleed. She also had MRIs done which demonstrated ischemic changes noted in the right occipital right frontal parietal and cerebellum. There was hemorrhagic transformation that cause some mass-effect but no evidence of herniation. She eventually had an EGD which demonstrated no evidence of acute GI bleed. Lower extremity duplexes were performed which demonstrated a DVT below the right knee she was started on aspirin and heparin. She was placed on beta-marilyn spironolactone as well as an KATHLEEN inhibitor. Her echocardiogram had demonstrated global dysfunction with an estimated ejection fraction of 45%. Since going home she says that she has been doing well denies any chest pain or shortness breath or paroxysmal nocturnal dyspnea or pedal edema she is been compliant with her medications and has discontinued any alcohol use. Her physical exam here demonstrates clear lung smith regular rate and rhythm and no pedal edema her electrocardiogram demonstrates sinus rhythm with a rate of 59 bpm and no acute changes are noted. 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 [Ecotrin] 81 mg PO DAILY 02/22/17 [History Confirmed 02/16/18] Carvedilol [Coreg (Beta Marilyn)] 12.5 mg PO BID 02/22/17 [History Confirmed 02/16/18] Folic Acid 1 tab PO DAILY 02/22/17 [History Confirmed 02/16/18] Lisinopril [Zestril] 1 tab PO DAILY 02/22/17 [History Confirmed 02/16/18] Albuterol IH (ProAir) [Proair Hfa] 1 puff INHALATION Q4H PRN PRN #1 inhaler 09/17/17 [Rx Confirmed 02/16/18] atorvastatin 20 mg tablet 20 mg PO QDAY 10/18/17 [History Confirmed 02/16/18] pantoprazole 40 mg tablet,delayed release 40 mg PO QAM 10/18/17 [History Confirmed 02/16/18] spironolactone 25 mg tablet 25 mg PO QAM 10/18/17 [History Confirmed 02/16/18] tiotropium bromide 2.5 mcg/actuation mist for inhalation 2 puff INHALATION QDAY #1 device 12/30/17 [Rx Confirmed 02/16/18] escitalopram 10 mg tablet 15 mg PO QDAY #180 tab 01/12/18 [Rx Confirmed 02/16/18] zolpidem 10 mg tablet 10 mg PO QHS PRN #30 tab 02/01/18 [Rx Confirmed 02/16/18] PFSH Medical History History of ETOH abuse (Chronic) History of stroke (Chronic 02/03/17) History of non-ST elevation myocardial infarction (NSTEMI) (Chronic 02/03/17) History of DVT of lower extremity (Chronic 02/11/17) History of pneumonia (Acute) Hyperlipidemia (Chronic) Hypertension (Chronic) Hemorrhagic cerebrovascular accident (CVA) (Resolved) Heart failure with reduced ejection fraction (Chronic) Metabolic encephalopathy (Acute) Upper GI bleed (Acute) Transaminitis (Acute) Elevated serum creatinine (Acute) COPD (chronic obstructive pulmonary disease) (Suspected) PRES (posterior reversible encephalopathy syndrome) (Acute) Acute respiratory failure (Resolved) Surgical History H/O: section (Resolved) History of lumpectomy (Resolved) History of cholecystectomy (Resolved) Hx of appendectomy (Acute) Family History Sister Cancer lung Father Cancer lung Mother Cancer lung Social History Smoking Status: Former smoker how long ago did patient quit smokin, 1pk/day second hand exposure: Yes alcohol intake: former substance use type: does not use what type of physical activity do you participate in: walking frequency: daily ROS Const Const: Positive for other (Feels well, had CVA 1 year ago with little residual, only vision); negative for fatigue, weakness, body ache, fever(s), headache(s), chills, frequent falls, night sweats, daytime sleepiness, difficulty sleeping, excessive sweating, weight gain, weight loss, increased appetite, poor appetite or anorexia Eyes Eyes: Positive for blurry vision (left eye since CVA); negative for blind spots, loss of peripheral vision, transient loss of vision, change in vision, double vision, floaters, tunnel vision or other ENT ENT: Negative for headache(s), balance problems, tongue swelling or lip swelling Cardio Chest Pain: No Palpitations: No Edema: None Muscle aches with walking: Bilateral (Goes away with rest, recurs) Resp Respiratory: Negative for SOB with activity, SOB at rest, SOB orthopnea\SOB lying down, Cough, Coughing up blood/hemoptysis, chest congestion, pain on inspiration, snoring, stridor, wheezing, crackles, paroxysmal nocturnal dyspnea or other GI GI: Negative nausea, vomiting, heartburn, constipation, belching, bloating, cramping, vomiting blood/hematemesis, bright, red blood in stools, black,tarry stools, loose stools, Difficulty Swallowing or other : Negative for hematuria, frequent nighttime urination/ nocturia, erectile dysfunction or abnormal vaginal bleeding Musc Musc: Negative for muscle aches/ myalgia, muscle weakness, joint pain or balance problems Skin Skin: Negative redness, non-healing lesions, rash, unusual bruising, skin ulcer, wounds, jaundice or other Neuro Neuro: Positive for blurry vision (left eye since CVA); negative for weakness, headache(s), frequent falls or double vision Justus Hematologic/Lymphatic: Negative for easy bleeding, easy bruising, enlarged lymph nodes or other Endo Endo: Negative for fatigue or excessive sweating Psych Psych: Negative for anxiety, depression, thoughts of harming anyone, thoughts of harming yourself, visual hallucinations, panic attacks or audible hallucinations Allergy Allergy/Immunology: Negative for rash, Negative for throat swelling, Negative for tongue swelling, Negative for hives, Negative for lip swelling Cardiology Exam Const Appearance: cooperative, healthy appearing, well developed, well groomed and no acute distress Nutritional Appearance: well nourished and average body habitus Orientation: alert, awake and oriented x3 Head Head: normal to inspection, normocephalic and atraumatic Ears: hearing grossly normal bilaterally and external ears normal Nose: external nose normal, nasal mucous membranes and turbinates normal, nares normal, septum normal, no nasal discharge Face and Sinus: face symmetric Mouth: oral mucosae normal, tongue normal, oropharynx normal and moist mucous membranes Teeth and gingiva: dentition normal Throat: posterior oropharynx normal, tonsils normal and uvula midline Eyes General: appearance normal, both eyes and all related structures Eyelids: eyelids normal Conjunctivae: conjunctivae normal Pupils: PERRL, normal by confrontation and accommodation normal EOM: EOM intact bilaterally Neck Neck: normal visual inspection, trachea midline and no JVD JVD: +5 Carotids: normal carotid upstroke and bounding pulses Chest Chest inspection: normal inspection of the chest, symmetric chest movement and normal respiratory effort Auscultation: Bilateral: Clear to Auscultation Cardio Palpation: normal PMI Rate: regular rate Rhythm: regular rhythm Heart sounds: S1 normal, S2 normal and normal, physiologic split S2; negative rub, gallop or murmur GI GI: normal to inspection, soft, no hepatosplenomegaly and bowel sounds present Neuro General: alert, awake, oriented x3, no focal sensory deficit, gait normal and moves all extremities Skin Skin: no rashes or lesions noted Extremities Pulses: Normal: Right Femoral Pulse, Left Femoral Pulse, Right Dorsalis Pedis Pulse, Left Dorsalis Pedis Pulse, Right Posterior Tibial Pulse, Left Posterior Tibial Pulse, Right Radial Pulse, Left Radial Pulse Lower Extremity Edema: None: Bilateral Musculoskel Musculoskeletal: No joint tenderness Psych Psychological: normal affect Assessment AND Plan 1. History of non-ST elevation myocardial infarction (NSTEMI) I25.2 Plan She did have a small non-ST elevation myocardial infarction with mild global systolic dysfunction my recommendation is to continue the current medical therapy I like to see her again in about 3-4 months and repeat her echocardiogram to reassess her left ventricular function. Orders Orders: 2. Essential hypertension I10 Plan Her blood pressure appears to be under excellent control on the current medical therapy no other major changes will be made. 3. Pure hypercholesterolemia E78.00; E78.0 Plan She does have a history of hyperlipidemia and she will remain on her medium intensity statin. When she is seen again in a few months repeat lipid profile will be performed. Thank you for allowing me to participate in the care of your patient. Please don't hesitate to call if any issues arise Plan Detail Follow Up 4 Months (jhr) Coding Level of Care Code Off vis,new,level 4 Diagnoses History of non-ST elevation myocardial infarction (NSTEMI) I25.2 Essential hypertension I10 Hypertension type: essential hypertension Pure hypercholesterolemia E78.00; E78.0 Hyperlipidemia type: pure hypercholesterolemia Coding Level of Care Code Off vis,new,level 4 Diagnoses History of non-ST elevation myocardial infarction (NSTEMI) I25.2 Essential hypertension I10 Hypertension type: essential hypertension Pure hypercholesterolemia E78.00; E78.0 Hyperlipidemia type: pure hypercholesterolemia 02/17/18 1637 <Electronically signed by Shahzad Long MD> Date Shahzad Long MD Cosigner Signature: Date (if applicable) CC: Glenn Ulloa MD 12 LEAD EKG PERFORMED Observed: 02/16/2018 Status: F Source: [facility] 8:50 AM [facility] [address] [place] [address] 12 Lead EKG performed by [facility] 02/16/18 0849 MR#: [id number] Acct: [id number] Name: LUIZA MAY Rep #: [id number] : 1955 62 From: Shahzad Long MD Attending Dr: Shahzad Long MD Status: DEP AMB Ordering Dr: Shahzad Long MD Date: 02/16/18 [place] [facility] [place]: F C Admitted: BMS/12 Lead EKG performed by [facility] ECG Report Interpretation Sinus Bradycardia -Short [place] syndrome Mar = 114BORDERLINE RHYTHMElectronically signed on 06/08/2018 at 11:30 by Shahzad Long Software Version [id number] 06/08/18 1135 Date Shahzad Long MD CC: Glenn Ulloa MD Date Dictated: 02/16/1849 Date Transcribed: 02/16/18848 Central Sterile Technician: CO Signed DEXA BONE DENSITY Observed: 01/18/2018 Status: F Source: [facility] STUDY 1:21 PM [facility] Imaging Services [address] [place] [id number] Dexa Bone Density Study MR#: [id number] Acct: [id number] Name: LUIZA MAY Rep #: [id number] : 1955 F 62 From: Vinny Mcghee MD PCP: Glenn Ulloa MD Status: REG CLI Study: Dexa Bone Density Study Date of Exam: 01/18/18 Exam# [id number] Ordering Dr: Glenn Ulloa MD STUDY: DUAL ENERGY X-RAY ABSORPTIOMETRY / DXA REASON FOR EXAM: Female, 62 years old. The patient is postmenopausal. No loss of height. TECHNIQUE: Bone Mineral Density (BMD) measurements of lumbar spine and bilateral hips were obtained. COMPARISON: None. FINDINGS: Lumbar Spine (L1-L4): g/cm2 (1.070) / T-score (-0.9) / Z-score (0.5) Findings are suggestive of normal bone density with a low fracture risk. Left Femur Total: g/cm2 (0.937) / T-score (-0.6) / Z- score (0.5) Left Femoral Neck: g/cm2 (0.849) / T-score (-1.4) / Z- score (0.0) Right Femur Total: g/cm2 (0.910) / T-score (-0.8) / Z- score (0.3) Right Femoral Neck: g/cm2 (0.830) / T-score (-1.5) / Z-score (-0.1) BD/Dexa Bone Density Study IMPRESSION: The patient is considered osteopenic as outlined below according to World Charanjit Organization (WHO) criteria with a moderate fracture risk. Reference Information: The T-score is the number of standard deviations above or below the standard which is normal for young adults at their peak bone mineral density. The World Health Organization (WHO) interprets the T-scores as follows: Above -1 Normal bone density Between -1 and -2.5 Osteopenia Equal to / or below -2.5 Osteoporosis As a practical clinical guideline, osteopenia may be graded as follows: Mild -1 through -1.5 Moderate -1.6 through -2.0 Severe -2.1 through -2.4 The Z-score is the number of standard deviations above or below age-matched controls. A Z-score of less than -1.5 would be considered abnormal. References: 1. NIH Osteoporosis and Related Bone Diseases http://www.osteo.org 2. International Society for Clinical Densitometry http://www.iscd.org 3. National Osteoporosis Foundation http://www.nof.org Electronically Signed: Vinny Mcghee MD at 15:39 EDT Tel [phone], Service support , CC: Glenn Ulloa MD Central Sterile Technician: Signed INTERNAL MEDICINE Observed: 01/14/2018 Status: F Source: [facility] OFFICE VISIT 12:53 PM [facility] [place] [place] [facility] [address] [address] [place] [address] OFFICE VISIT Date of Service: 01/12/18 MR#: [id number] Acct: [id number] Name: LUIZA MAY Rep #: [id number] : 1955 Provider: Glenn Ulloa MD Age/Sex: 62/F Location: [facility] Status: Signed Intake Vital Signs01/12/18 Height 5 ft 2 in 01/12/18 Weight: 130 lb 01/12/18 Body Mass Index (BMI) 23.8 01/12/18 Blood Pressure 132/73 Intake Visit Reasons: 6 WK FU Chief Complaint: 6 week F/U for Anxiety. Is patient in pain?: No Allergies tetanus and diphtheria toxoids [tetanus AND diphtheria toxoids] Allergy (Verified 01/12/18 15:02) Hives Medications Aspirin E.C. [Ecotrin] 81 mg PO DAILY 02/22/17 [History Confirmed 01/12/18] Carvedilol [Coreg (Beta Marilyn)] 12.5 mg PO BID 02/22/17 [History Confirmed 01/12/18] Folic Acid 1 tab PO DAILY 02/22/17 [History Confirmed 01/12/18] Lisinopril [Zestril] 1 tab PO DAILY 02/22/17 [History Confirmed 01/12/18] Albuterol IH (ProAir) [Proair Hfa] 1 puff INHALATION Q4H PRN PRN #1 inhaler 09/17/17 [Rx Confirmed 01/12/18] atorvastatin 20 mg tablet 20 mg PO QDAY 10/18/17 [History Confirmed 01/12/18] pantoprazole 40 mg tablet,delayed release 40 mg PO QAM 10/18/17 [History Confirmed 01/12/18] spironolactone 25 mg tablet 25 mg PO QAM 10/18/17 [History Confirmed 01/12/18] zolpidem 10 mg tablet 10 mg PO QHS PRN #30 tab 11/16/17 [Rx Confirmed 01/12/18] tiotropium bromide 2.5 mcg/actuation mist for inhalation 2 puff INHALATION QDAY #1 device 12/30/17 [Rx Confirmed 01/12/18] escitalopram 10 mg tablet 15 mg PO QDAY #180 tab 01/12/18 [Rx Confirmed 01/12/18] PFSH Medical History History of pneumonia (Acute) Hyperlipidemia (Chronic) Hypertension (Chronic) Acute respiratory failure (Acute) Hemorrhagic cerebrovascular accident (CVA) (Resolved) Heart failure with reduced ejection fraction (Chronic) Metabolic encephalopathy (Acute) NSTEMI (non-ST elevated myocardial infarction) (Acute) Upper GI bleed (Acute) Transaminitis (Acute) Elevated serum creatinine (Acute) COPD (chronic obstructive pulmonary disease) (Suspected) Stroke (Acute) PRES (posterior reversible encephalopathy syndrome) (Acute) Surgical History H/O: section (Resolved) History of lumpectomy (Resolved) History of cholecystectomy (Resolved) Hx of appendectomy (Acute) Family History Sister Cancer lung Father Cancer lung Mother Cancer lung Social History Smoking Status: Former smoker how long ago did patient quit smokin, 1pk/day second hand exposure: Yes alcohol intake: former substance use type: does not use what type of physical activity do you participate in: walking frequency: daily HPI HPI Chief Complaint: 6 week F/U for Anxiety. Details: LUIZA MAY, is a 62 F who presents to the office today for follow-up. She has no acute complaints at this time. Anxiety is better however she still believes she is not at her baseline. ROS Const Constitutional: No chills, fatigue, fever(s), frequent falls, malaise, weakness, sleep problems or change in appetite Eyes Eyes: No blurry vision, change in vision, double vision, discharge or visual disturbances ENT ENT: No abnormal hearing, ear pain, ear pressure, tinnitus or dizziness/vertigo Resp Respiratory: No cough, shortness of breath or wheezing Cardio Cardiology: No chest pain at rest, chest pain with exertion, shortness of breath, dyspnea on exertion, generalized swelling, irregular heart rhythm, lightheadedness, orthopnea, fast heart rate or palpitations Gastro GI: No abdominal pain, change in bowel habits, constipation, diarrhea, nausea/dyspepsia or vomiting Genitourinary-Female: No difficulty urinating, burning urination, painful urination, urinary incontinence, urinary frequency, urinary urgency, urinary hesitancy, urinary retention, Frequent nighttime urination/ nocturia, sexual problems, genital lesions, abnormal vaginal bleeding, pelvic pain, vaginal dryness, vaginal odor or Vaginal Itching Musc Musculoskeletal: No joint pain, back pain, joint swelling, limited range of motion, numbness or tingling Skin Skin: No change in skin color, itching, rash or wounds Breast Breast: No breast lump or breast pain Neuro Neurology: No frequent falls, weakness, abnormal hearing, numbness, tingling, unsteady gait/balance, dizziness, loss of vision, memory loss or visual disturbances Psych Psychiatric: No memory loss, No anxiety, No change in appetite, No depression, No Thoughts of harming yourself/Others Endo Endocrine: No fatigue, heat intolerance, increased thirst/drinking, increased hunger or increased urination Aller/Imm Allergy/Immunologic: No wheezing, itchy eyes or seasonal allergy symptoms Justus/Lymp Hematologic/Lymphatic: No easy bleeding, easy bruising or enlarged lymph nodes Exam Const General: cooperative, no acute distress Orientation: alert, awake, oriented x3 [facility] Head: atraumatic, normocephalic Ears: hearing grossly normal bilaterally Resp Effort AND Inspection: normal respiratory effort, able to speak in complete sentences Auscultation: Bilateral: Diminished Lung Sounds Cardio Rate: regular rate Rhythm: regular rhythm Heart Sounds: S1 normal, S2 normal GI Palpation: soft, no hepatosplenomegaly Neuro General: alert, awake, oriented x3, moves all extremities, CN's II-XI intact bilaterally Extrem Other: Trace bilateral pitting edema. Psych Appearance: grossly normal Mental Status: mental status grossly normal Affect: normal affect Assessment AND Plan 1. Anxiety F41.9 Plan Improving however, not back to baseline. Increase Lexapro to 15 mg daily. Follow-up in 3 months. Advised to call with any questions or concerns. 2. 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 She is stable. BMP ordered. He is to follow-up with/ complete her sleep study 3. Post-menopausal Z78.0 Plan Bone density ordered. Follow-up with results. Orders Orders: 4. Healthcare maintenance Z00.00 Plan Last colonoscopy was about a year ago. Routinely has mammogram and Pap smears done at the [facility]. Pap smear due in about 2 years. 5. Heart failure with reduced ejection fraction I50.20 Plan Patient reports a history. Had previously followed up at the [facility] however, she wants to transfer care here. Referred to. the heart group. This note was generated with LedgerXation software. It may contain incorrect words, spelling, and punctuation that were not noted in checking the note before signing. 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 Age/Sex: 62/F Location: [facility].W Status: Signed Assessment AND Plan 1. Chronic obstructive pulmonary disease, unspecified COPD type J44.9 Plan The patient has evidence of there is a very COPD based upon her most recent pulmonary function test completed in November 2017. She is currently prescribed Breo and as needed albuterol. He is currently utilizing her rescue inhaler multiple times per day. Therefore, I recommended the initiation of Spiriva Respimat to her current inhaler regimen. Samples were provided to the patient at today's office visit. Inhaler technique was reviewed. The patients symptom response to therapy will be reassessed at her follow-up office visit. 2. Chronic hypoxemic respiratory failure J96.11 Plan The patient recently underwent a 6 minute walk test which revealed the need for 2 L/min of supplemental oxygen both at rest and with exertion. However, the patient arrived to today's office visit without any supplemental oxygen in place. The importance of compliance with supplemental oxygen as prescribed was emphasized to the patient today. 3. TIO (obstructive sleep apnea) G47.33 Plan The patient is in need of completing a titration polysomnogram, in follow-up from her previously diagnosed obstructive sleep apnea. An updated order has been placed. Call has been placed with the sleep lab to help facilitate scheduling of the patient. Orders Orders: Plan Detail Other Medications New: Follow Up 3 Months (CSM) HPI HPI Comments Details: The patient is a 62-year-old female who presents to the clinic today for a routine scheduled follow-up office visit. If you recall, I initially saw the patient when she was admitted to the hospital in mid September 2017 for an acute COPD exacerbation secondary to pneumococcal pneumonia. The patient recently underwent a diagnostic polysomnogram in October 2017 which revealed the presence of moderate to severe obstructive sleep apnea. She has a previous smoking history that included 1.5 packs per day 20 years. The patient quit smoking completely 15 years ago. She states that at that time she was evaluated by her then echocardiographer, Dr. Saeed, and was told that she had COPD. 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 A 6 minute walk test also completed in December 2017 revealed the need for 2 L/min of supplemental oxygen, both at rest and with exertion. Today, the patient presented to our office without supplemental oxygen in place and was saturating 77% on room air. She was placed on 2 L/min as previously prescribed for the remainder of the office encounter. The patient is currently utilizing Breo and pro-air. She reports on average she utilizes her rescue inhaler 1-2 times per day. She has chronic, baseline dyspnea on exertion, which is unchanged from previous. She does have an occasional dry cough but denies chest tightness or wheezing. The patient was supposed to undergo a titration polysomnogram but issues arose with scheduling. Therefore, the patient is yet to undergo the aforementioned testing. Her weight has been stable. She denies fevers, chills or night sweats. She denies chest pain, dizziness or lightheadedness. Intake Vital Signs12/30/17 Height 5 ft 2 in 12/30/17 Weight: 129 lb Intake Visit Reasons: F/U Chief Complaint: establish care Allergies tetanus and diphtheria toxoids [tetanus AND diphtheria toxoids] Allergy (Verified 11/17/17 13:56) Hives Medications Aspirin E.C. [Ecotrin] 81 mg PO DAILY 02/22/17 [History Confirmed 11/17/17] Carvedilol [Coreg (Beta Marilyn)] 12.5 mg PO BID 02/22/17 [History Confirmed 11/17/17] Folic Acid 1 tab PO DAILY 02/22/17 [History Confirmed 11/17/17] Lisinopril [Zestril] 1 tab PO DAILY 02/22/17 [History Confirmed 11/17/17] Albuterol IH (ProAir) [Proair Hfa] 1 puff INHALATION Q4H PRN PRN #1 inhaler 09/17/17 [Rx Confirmed 11/17/17] atorvastatin 20 mg tablet 20 mg PO QDAY 10/18/17 [History Confirmed 11/17/17] pantoprazole 40 mg tablet,delayed release 40 mg PO QAM 10/18/17 [History Confirmed 11/17/17] spironolactone 25 mg tablet 25 mg PO QAM 10/18/17 [History Confirmed 11/17/17] zolpidem 10 mg tablet 10 mg PO QHS PRN #30 tab 11/16/17 [Rx Confirmed 11/17/17] escitalopram 10 mg tablet 10 mg PO QDAY #60 tab 11/17/17 [Rx Confirmed 11/17/17] fluticasone 200 mcg-vilanterol 25 mcg/dose powder for inhalation 1 inh INHALATION QDAY #1 device 12/30/17 [Rx Confirmed 12/30/17] tiotropium bromide 2.5 mcg/actuation mist for inhalation 2 puff INHALATION QDAY #1 device 12/30/17 [Rx Confirmed 12/30/17] PFSH Medical History History of pneumonia (Acute) Hyperlipidemia (Chronic) Hypertension (Chronic) Acute respiratory failure (Acute) Hemorrhagic cerebrovascular accident (CVA) (Resolved) Heart failure with reduced ejection fraction (Chronic) Metabolic encephalopathy (Acute) NSTEMI (non-ST elevated myocardial infarction) (Acute) Upper GI bleed (Acute) Transaminitis (Acute) Elevated serum creatinine (Acute) COPD (chronic obstructive pulmonary disease) (Suspected) Stroke (Acute) PRES (posterior reversible encephalopathy syndrome) (Acute) Surgical History H/O: section (Resolved) History of lumpectomy (Resolved) History of cholecystectomy (Resolved) Hx of appendectomy (Acute) Family History Sister Cancer lung Father Cancer lung Mother Cancer lung Social History Smoking Status: Former smoker how long ago did patient quit smokin, 1pk/day second hand exposure: Yes alcohol intake: former substance use type: does not use what type of physical activity do you participate in: walking frequency: daily Review of Systems [facility] Ear Nose Throat Mouth: Positive hearing normal Cardio Cardiovascular: Negative murmur Skin/Breast Skin/Breast: Negative rash Lymph Lymphatic: Negative swollen lymph nodes Exam Const Constitutional: Positive conversant, cooperative, in no acute respiratory distress, well developed, well nourished, good hygiene, thin and wearing supplemental oxygen Head Head: Positive normocephalic and atraumatic; negative cyanosis of lips/distal nose Eyes Eye: Positive clear conjunctiva; negative nystagmus or scleral abnormality Ears Ear: Positive hearing normal and external ears normal Nose Nose: Positive external nose normal Mouth Mouth: Positive oral mucosae normal and posterior oropharynx is adequate; negative no lesions Mallampati Score: II: Mallampati Score Neck Neck: Positive normal visual inspection and trachea midline; negative lymphadenopathy Chest Wall Chest: Positive symmetric chest movement Normal AP diameter. Resp lung sounds: Positive diminished diminished: Positive bialteral and prolonged expiratory time; negative wheezes, rhonchi or rales Cardio Cardiac: Positive regular rate, regular rhythm, S1 normal and S2 normal; negative murmur, rub or gallop GI GI: Positive normal bowel sounds Soft without distention Genitourinary: Positive deferred Musc Musculoskeletal: Positive steady gait Skin Pulmonary Skin Exam: Positive intact; negative lesion, rash, ulcers or dermal atrophy Pulses Pulse: Yes Pedal pulses present: Extremities Extremities: No clubbing, No cyanosis, No edema Neuro Neurologic: Yes conversant, Yes no focal neuro deficits, Yes cooperative Lymph Lymphatic: No lymphadenopathy Psych Appearance: Positive grossly normal Mental Status: Positive mental status grossly normal Mood: Positive congruent mood Affect: Positive normal affect Coding Level of Care Code Off vis,est,level 4 Diagnoses Chronic obstructive pulmonary disease, unspecified COPD type J44.9 COPD type: unspecified COPD Chronic hypoxemic respiratory failure J96.11 TIO (obstructive sleep apnea) G47.33 12/30/17 1207 <Electronically signed by Anurag Flannery DO> Date Anurag Flannery DO Cosigner Signature: Date (if applicable) CC: Glenn Ulloa MD DOWNTIME REPORT Observed: 12/23/2017 Status: F Source: [facility] 12:[address] [facility] Medical Records Department [address] [place] [address] Downtime Report MR#: [id number] Acct: [id number] Name: LUIZA MAY Rep #: [id number] : 1955 62 From: Catalino Ayoub PCP: Glenn Ulloa MD Status: REG CLI This patient was seen during an EMR downtime December 06, 2017 - December 13, 2017. This patient may have a combination of paper and electronic documentation or all paper documentation. All documentation is viewable within the e-chart portion of [employer] for each patient visit. 6 MINUTE WALK TEST Observed: 12/13/2017 Status: F Source: [facility] 11:[address] [facility] Pulmonary Services/Neurology [address] [place] [address] MR#: [id number] Acct: [id number] Name: LUIZA MAY Rep #: [id number] : 1955 62 From: Anurag Flannery DO Referring Dr: Anurag Flannery D.O. Date: Ordering Dr: Sex: F C Location: PSN PSN 6 Minute Walk Test - Interpretation Interpretation: The patient ambulated 649 feet over the course of 6 minutes beginning on room air without assistive devices or breaks. Pretesting oxygen saturation was noted to be 85% on room air. 2 L/min of supplemental oxygen was applied prior to testing. Pretesting oxygen saturation on 2 L/min was 99%. With ambulation, the yina oxygen saturation was 90%. This represents a significant exertional oxygen desaturation. There was also evidence of impaired walk distance. - Recommendations Recommendations: 2 L/min of supplemental oxygen should be utilized both at rest and with exertion. 12/13/17 1141 <Electronically signed by Anurag Flannery DO> Date Anurag Flannery DO CC: Date Dictated: 12/13/17 1139 Date Transcribed: 12/13/171138 Central Sterile Technician: Anurag Flannery DO Signed PULMONARY FUNCTION Observed: 11/30/2017 Status: F Source: [facility] REPORT COMP 10:26 AM [facility] Pulmonary Services/Neurology [address] [place] [address] MR#: [id number] Acct: [id number] Name: LUIZA MAY Rep #: [id number] : 1955 62 From: Mike Duarte MD Referring Dr: Anurag Flannery D.O. Status: REG CLI Ordering Dr: Date: Location: [facility] Sex: F C COMPLETE PULMONARY FUNCTION TEST INTERPRETATION Brief HPI: Patient is a 62 year old female, currently under the care of Dr. Flannery, who presents to [facility] for complete pulmonary function tests secondary to diagnosis of COPD. Respiratory therapist reports good effort and reproducible results. Interpretation: Forced expiration spirometry shows a very severe large airways obstructive ventilatory defect with an FEV1 of 25% predicted. There is no significant bronchodilator response by ATS criteria. Spirograms are of good quality and plateau slowly, indicating slowly emptying areas of the lungs. The respiratory flow volume loop shows decreased expiratory flow rates at all lung volumes consistent with airway obstruction. Lung volumes by body plethysmography show a normal total lung capacity at 4.38 L, 98% predicted. FRC and RV are elevated out of proportion. Lung volume measurements are consistent with air-trapping. Diffusion capacity by carbon monoxide is decreased at 30% predicted. The airway resistance is elevated. No previous pulmonary function tests were available for review. Impression: Irreversible very severe large airways obstructive ventilatory defect resulting in air trapping with a symmetric reduction in diffusing capacity. These findings are consistent with patient's diagnosis of advanced COPD. 11/30/17 1026 <Electronically signed by Mike Duarte MD> Date Mike Duarte MD CC: Mike Duarte MD; Anurag Flannery D.O.; Glenn Ulloa MD Date Dictated: 11/30/17 1012 Date Transcribed: 11/30/17 1012 Central Sterile Technician: RASHID Signed INTERNAL MEDICINE Observed: 11/19/2017 Status: F Source: [facility] OFFICE VISIT 1:50 PM [facility] [place] [place] Internal Medicine [address] [place] [address] [address] [place] [address] OFFICE VISIT Date of Service: 11/17/17 MR#: [id number] Acct: [id number] Name: LUIZA MAY Rep #: [id number] : 1955 Provider: Glenn Ulloa MD Age/Sex: 62/F Location: [facility] Status: Signed Intake Vital Signs11/17/17 Height 5 ft 2 in Intake Visit Reasons: 1 M FU Chief Complaint: F/U Anxiety. Is patient in pain?: No Allergies tetanus and diphtheria toxoids [tetanus AND diphtheria toxoids] Allergy (Verified 11/17/17 13:56) Hives Medications Aspirin E.C. [Ecotrin] 81 mg PO DAILY 02/22/17 [History Confirmed 11/17/17] Carvedilol [Coreg (Beta Marilyn)] 12.5 mg PO BID 02/22/17 [History Confirmed 11/17/17] Folic Acid 1 tab PO DAILY 02/22/17 [History Confirmed 11/17/17] Lisinopril [Zestril] 1 tab PO DAILY 02/22/17 [History Confirmed 11/17/17] Albuterol IH (ProAir) [Proair Hfa] 1 puff INHALATION Q4H PRN PRN #1 inhaler 09/17/17 [Rx Confirmed 11/17/17] atorvastatin 20 mg tablet 20 mg PO QDAY 10/18/17 [History Confirmed 11/17/17] pantoprazole 40 mg tablet,delayed release 40 mg PO QAM 10/18/17 [History Confirmed 11/17/17] spironolactone 25 mg tablet 25 mg PO QAM 10/18/17 [History Confirmed 11/17/17] zolpidem 10 mg tablet 10 mg PO QHS PRN #30 tab 11/16/17 [Rx Confirmed 11/17/17] escitalopram 10 mg tablet 10 mg PO QDAY #60 tab 11/17/17 [Rx Confirmed 11/17/17] PFSH Medical History History of pneumonia (Acute) Hyperlipidemia (Chronic) Hypertension (Chronic) Acute respiratory failure (Acute) Hemorrhagic cerebrovascular accident (CVA) (Resolved) Heart failure with reduced ejection fraction (Chronic) Metabolic encephalopathy (Acute) NSTEMI (non-ST elevated myocardial infarction) (Acute) Upper GI bleed (Acute) Transaminitis (Acute) Elevated serum creatinine (Acute) COPD (chronic obstructive pulmonary disease) (Chronic) Stroke (Acute) PRES (posterior reversible encephalopathy syndrome) (Acute) Surgical History H/O: section (Resolved) History of lumpectomy (Resolved) History of cholecystectomy (Resolved) Hx of appendectomy (Acute) Family History Sister Cancer lung Father Cancer lung Mother Cancer lung Social History Smoking Status: Former smoker how long ago did patient quit smokin, 1pk/day second hand exposure: Yes alcohol intake: former substance use type: does not use what type of physical activity do you participate in: walking frequency: daily HPI HPI Chief Complaint: F/U Anxiety. Details: LUIZA MAY, is a 62yo F who presents to the office today for follow up. She has no acute complaints at this time. She was started on lexapro at her last visit for anxiety. She has done well on the medication. ROS Const Constitutional: No chills, fatigue, fever(s), frequent falls, malaise, weakness, sleep problems or change in appetite Eyes Eyes: No blurry vision, change in vision, double vision, discharge or visual disturbances ENT ENT: No abnormal hearing, ear pain, ear pressure, tinnitus or dizziness/vertigo Resp Respiratory: Positive for shortness of breath (Chronic, stable.); no cough or wheezing Cardio Cardiology: No chest pain at rest, chest pain with exertion, shortness of breath, dyspnea on exertion, generalized swelling, irregular heart rhythm, lightheadedness, orthopnea, fast heart rate or palpitations Gastro GI: No abdominal pain, change in bowel habits, constipation, diarrhea, nausea/dyspepsia or vomiting Genitourinary-Female: No difficulty urinating, burning urination, painful urination, urinary incontinence, urinary frequency, urinary urgency, urinary hesitancy, urinary retention, Frequent nighttime urination/ nocturia, sexual problems, genital lesions, abnormal vaginal bleeding, pelvic pain, vaginal dryness, vaginal odor or Vaginal Itching Musc Musculoskeletal: No joint pain, back pain, joint swelling, limited range of motion, numbness or tingling Skin Skin: No change in skin color, itching, rash or wounds Breast Breast: No breast lump or breast pain Neuro Neurology: No frequent falls, weakness, abnormal hearing, numbness, tingling, unsteady gait/balance, dizziness, loss of vision, memory loss or visual disturbances Psych Psychiatric: No memory loss, Positive for anxiety (Doing a little better with meds), No change in appetite, No depression, No Thoughts of harming yourself/Others Endo Endocrine: No fatigue, heat intolerance, increased thirst/drinking, increased hunger or increased urination Aller/Imm Allergy/Immunologic: No wheezing, itchy eyes or seasonal allergy symptoms Justus/Lymp Hematologic/Lymphatic: No easy bleeding, easy bruising or enlarged lymph nodes Exam Const General: cooperative, no acute distress Orientation: alert, awake, oriented x3 HENMT Head: atraumatic, normocephalic Ears: hearing grossly normal bilaterally Resp Effort AND Inspection: normal respiratory effort, able to speak in complete sentences Auscultation: Bilateral: Diminished Lung Sounds Cardio Rate: regular rate Rhythm: regular rhythm Heart Sounds: S1 normal, S2 normal GI Palpation: soft, no hepatosplenomegaly Neuro General: alert, awake, oriented x3, moves all extremities, CN's II-XI intact bilaterally Extrem Other: Trace bilateral pitting edema. Psych Appearance: grossly normal Mental Status: mental status grossly normal Affect: normal affect Assessment AND Plan 1. Anxiety F41.9 Plan Improved on Lexapro however patient not back to her baseline. Increase Lexapro to 10mg daily. Follow up in 6 weeks. 2. 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 Super imposing metabolic alkalosis has improved. Still alkalotic however, this is compensatory for chronic respiratory acidosis. Scheduled to follow up with pulmo. [facility] in 1 week. Orders Orders: 3. Heart failure with reduced ejection fraction I50.20 Plan Patient grossly unsure of her medications. She is currently on spironolactone and lisinopril amongst other however not on Lasix. Increased risk of hyperkalemia on above. However, Labs so far have been stable. I have asked her to confirm/ reconcile her medications with her turbogenerator operator. Also scheduled for an ECHO soon. Will follow. 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 [place] [address] OFFICE VISIT Date of Service: 11/18/17 MR#: [id number] Acct: [id number] Name: LUIZA MAY Rep #: [id number] : 1955 Provider: Anurag Flannery D.O. Age/Sex: 62/F Location: [facility] Status: Signed Assessment AND Plan 1. Chronic obstructive pulmonary disease, unspecified COPD type J44.9 Plan This is a presumptive diagnosis, as there are no PFTs on file as of yet. The patient is currently only utilizing a Ventolin rescue inhaler at the present time. Therefore, we will plan to obtain baseline pulmonary function testing, along with a 6 minute walk test to assess for exertional hypoxia. The patient will follow up in 1 month with our nurse practitioner to review the results of her tests. At that time, consideration can be given to the initiation of a maintenance inhaler regimen, pending the results of her PFTs. Orders Orders: 2. TIO (obstructive sleep apnea) G47.33 Plan The patient recently completed a diagnostic polysomnogram in October 2017 which revealed the need or a titration study due to underlying moderate to severe TIO. The patient will be referred to the sleep lab to undergo a titration study, accordingly. Orders Orders: Plan Detail Follow Up 1 Month (CSM) HPI HPI Comments Details: The patient is a 62-year-old female who presents to the clinic today for a routine scheduled follow-up office visit. If you recall, I initially saw the patient when she was admitted to the hospital in mid September 2017 for an acute COPD exacerbation secondary to pneumococcal pneumonia. Upon discharge, the patient completed a 10 day course of Ceftin ear and a 12 day course of prednisone. The patient recently underwent a diagnostic polysomnogram in October 2017 which revealed the presence of moderate to severe obstructive sleep apnea. She has a previous smoking history that included 1.5 packs per day 20 years. The patient quit smoking completely 15 years ago. She states that at that time she was evaluated by her then echocardiographer, Dr. Saeed, and was told that she had COPD. However, she was never started on any form of a maintenance inhaler regimen. She is currently utilizing supplemental oxygen at night and as needed throughout the day. She does occasionally check her oxygen saturations in her home environment and states that when she exerts herself physically, that her oxygen saturations often dropped into the high 70s and 80s. She has baseline, chronic dyspnea on exertion, along with a dry, nonproductive cough. She denies any significant chest tightness or wheezing. Her weight has been stable. She denies fevers, chills or night sweats. She reports no chest pain, dizziness or lightheadedness. She is currently only utilizing Ventolin on an as-needed basis in her home environment. On average, she is utilizing the aforementioned inhaler 4-6 times per week. Intake Vital Signs11/18/17 Height 5 ft 2 in 11/18/17 Weight: 132 lb Intake Visit Reasons: 1 M FU Chief Complaint: establish care DME Vendor: [employer] Allergies tetanus and diphtheria toxoids [tetanus AND diphtheria toxoids] Allergy (Verified 11/17/17 13:56) Hives Medications Aspirin E.C. [Ecotrin] 81 mg PO DAILY 02/22/17 [History Confirmed 11/17/17] Carvedilol [Coreg (Beta Marilyn)] 12.5 mg PO BID 02/22/17 [History Confirmed 11/17/17] Folic Acid 1 tab PO DAILY 02/22/17 [History Confirmed 11/17/17] Lisinopril [Zestril] 1 tab PO DAILY 02/22/17 [History Confirmed 11/17/17] Albuterol IH (ProAir) [Proair Hfa] 1 puff INHALATION Q4H PRN PRN #1 inhaler 09/17/17 [Rx Confirmed 11/17/17] atorvastatin 20 mg tablet 20 mg PO QDAY 10/18/17 [History Confirmed 11/17/17] pantoprazole 40 mg tablet,delayed release 40 mg PO QAM 10/18/17 [History Confirmed 11/17/17] spironolactone 25 mg tablet 25 mg PO QAM 10/18/17 [History Confirmed 11/17/17] zolpidem 10 mg tablet 10 mg PO QHS PRN #30 tab 11/16/17 [Rx Confirmed 11/17/17] escitalopram 10 mg tablet 10 mg PO QDAY #60 tab 11/17/17 [Rx Confirmed 11/17/17] PFSH Medical History History of pneumonia (Acute) Hyperlipidemia (Chronic) Hypertension (Chronic) Acute respiratory failure (Acute) Hemorrhagic cerebrovascular accident (CVA) (Resolved) Heart failure with reduced ejection fraction (Chronic) Metabolic encephalopathy (Acute) NSTEMI (non-ST elevated myocardial infarction) (Acute) Upper GI bleed (Acute) Transaminitis (Acute) Elevated serum creatinine (Acute) COPD (chronic obstructive pulmonary disease) (Suspected) Stroke (Acute) PRES (posterior reversible encephalopathy syndrome) (Acute) Surgical History H/O: section (Resolved) History of lumpectomy (Resolved) History of cholecystectomy (Resolved) Hx of appendectomy (Acute) Family History Sister Cancer lung Father Cancer lung Mother Cancer lung Social History Smoking Status: Former smoker how long ago did patient quit smokin, 1pk/day second hand exposure: Yes alcohol intake: former substance use type: does not use what type of physical activity do you participate in: walking frequency: daily Review of Systems Const CONSTITUTIONAL: Negative anorexia, body ache, chills, daytime sleepiness, fever(s), night sweats, oral thrush, stops breathing during sleep, weight loss, sleeping in chair, fatigue, weight loss, weight gain, frequent colds, seasonal allergies, other, headache(s) or orthopnea EETM Ear Nose Throat Mouth: Positive hearing normal; negative hard of hearing, hoarseness, dry mouth in morning, change in vision, itchy eyes, eye pain, swallowing Difficulty, ear pain, nose bleed, headache(s), mouth pain, nasal congestion, nasal discharge, post nasal drip, sinus pain, sinus pressure, sore throat or other Cardio Cardiovascular: Negative chest pain, chest pain at rest, chest pain with activity, irregular heart rhythm, edema, shortness of breath when lying down, palpitations, murmur or other Resp Respiratory: Positive as per HPI and shortness of breath shortness of breath: Positive with activity; negative pain with cough, wheezing, chest congestion, cough, chest tightness, pain on inspiration, inhalers, increase use of rescue inhalers, snoring, apnea or other Gastro Gastrointestional: Negative bloody stools, change in appetite, difficulty swallowing, reflux, hematemesis, melena stool, loose stool, constipation or other Genitourinary: Negative blood in urine, nocturia, pain with urination or other Musc Musculoskeletal: Negative body pain, back pain, neck pain or other Skin/Breast Skin/Breast: Negative dry skin, itching, rash, unusual bruising, breast lump or other Neuro Neurological: Positive restless legs; negative confusion, weakness or other Psych Psychocological: Positive abnormal sleep pattern and anxiety; negative thoughts of hurting self/others, hopelessness or other Lymph Lymphatic: Negative easy bleeding, easy bruising, swollen lymph nodes or other Exam Const Constitutional: Positive conversant, cooperative, in no acute respiratory distress, well developed, well nourished, good hygiene and thin Head Head: Positive normocephalic and atraumatic; negative cyanosis of lips/distal nose Eyes Eye: Positive clear conjunctiva; negative nystagmus or scleral abnormality Ears Ear: Positive hearing normal and external ears normal; negative hard of hearing Nose Nose: Positive external nose normal; negative epistaxis Mouth Mouth: Positive oral mucosae normal and posterior oropharynx is adequate; negative no lesions or post nasal drip Mallampati Score: II: Mallampati Score Neck Neck: Positive normal visual inspection and trachea midline; negative lymphadenopathy Chest Wall Chest: Positive symmetric chest movement Normal AP diameter. Resp lung sounds: Positive diminished diminished: Positive global and prolonged expiratory time; negative wheezes, rhonchi or rales Cardio Cardiac: Positive regular rate, regular rhythm, S1 normal and S2 normal; negative rub, gallop or murmur GI GI: Positive normal bowel sounds Soft without distention Genitourinary: Positive deferred Musc Musculoskeletal: Positive steady gait Skin Pulmonary Skin Exam: Positive intact; negative lesion, ulcers, dermal atrophy or rash Pulses Pulse: Yes Pedal pulses present: Extremities Extremities: No clubbing, No cyanosis, No edema Neuro Neurologic: Yes conversant, Yes no focal neuro deficits, Yes cooperative Lymph Lymphatic: No lymphadenopathy Psych Appearance: Positive grossly normal Mental Status: Positive mental status grossly normal Mood: Positive congruent mood Affect: Positive normal affect Coding Level of Care Code Off vis,est,level 4 Diagnoses Chronic obstructive pulmonary disease, unspecified COPD type J44.9 COPD type: unspecified COPD TIO (obstructive sleep apnea) G47.33 11/18/17 1043 <Electronically signed by Anurag Flannery DO> Date Anurag Flannery DO Cosigner Signature: Date (if applicable) CC: Glenn Ulloa MD BASIC METABOLIC Collected: 11/18/2017 Status: F Source: [facility] PROFILE (BMP) 9:34 [place] [facility] [place] CODE TESTS RESULT OUT OF RANGE REFERENCE UNITS LAB L501.0100 74-106 mg/dL Normal GLU 91 Result Comment: Please note revised GLUCOSE reference range effective 2017. LAB L501.1000 7-18 mg/dL Normal BUN 13 LAB L501.1100 0.55-1.02 mg/dL Normal CREAT,SERUM 0.76 Result Comment: The validity of the calculated GFR AND GFRAA in patients over 70 years has not been determined. Clinical correlation is essential. LAB L501.1110 >60 mL/min Normal EST GFR 82 Result Comment: Non- GFR Calc LAB L501.1115 >60 mL/min Normal EST GFR - AA 99 Result Comment: GFR Calc LAB L501.1300 10-20 RATIO Normal BUN/CRE 17.1 LAB L501.2200 8.5-10.1 mg/dL CA Normal 8.6 LAB L501.5300 136-145 mmol/L NA Normal 143 LAB L501.5600 3.5-5.1 mmol/L K Normal 3.7 LAB L501.5900 98-107 mmol/L CL Normal 102 LAB L501.6100 21.0-32.0 mmol/L High CO2 39.0 LAB L501.6200 5-15 Low GAP 2 Performed By: #### L500.2500 #### [facility] [address] [place], [address] CBC W/DIFF, AUTOMATED Collected: 10/25/2017 Status: F Source: [facility] 9:36 AM [facility] [place] TYPE CODE TESTS RESULT OUT OF RANGE REFERENCE UNITS LAB L100.1000 4.4-11.0 K/mm3 Normal WBC 7.1 LAB L100.1200 4.2-5.4 M/mm3 Normal RBC 4.46 LAB L100.1300 12.0-15.0 g/dl Normal HGB 13.2 LAB L100.1400 37-47 % Normal HCT 42.4 LAB L100.1500 81-99 fL Normal MCV 95.1 LAB L100.1600 27.0-32.0 pg Normal MCH 29.6 LAB L100.1700 32-36 g/gl Low MCHC 31.1 LAB L100.1810 11.6-14.6 % Normal RDW CV 14.1 LAB L100.1820 35.1-43.9 fl High RDW SD 47.2 LAB L100.1900 150-450 K/mm3 Normal PLT 179 LAB L100.2000 6.2-12.0 fl Normal MPV 11.2 LAB L100.2100 47-70 % Normal NEUT% 67.0 LAB L100.2200 19-41 % Normal LY% 22.9 LAB L100.2300 0-10 % Normal MONO% 7.9 LAB L100.2400 0-5 % Normal EO% 1.5 LAB L100.2500 0-1 % Normal BASO% 0.6 LAB L100.2550 0.0-0.9 % Normal IM GRAN % 0.100 Result Comment: IG% - Immature Granulocytes (promyelocytes, myelocytes and metamyelocytes) > 1% indicates that a LEFT SHIFT is Present. LAB L100.2620 2.0-7.7 X10 3/uL Normal Absolute Neut 4.8 LAB L100.2720 0.83-4.51 X10 3/ul Normal Absolute Lymph 1.63 Performed By: #### L100.0100, L500.2500 #### [facility] [address] [place], [place], [id number] BASIC METABOLIC Collected: 10/25/2017 Status: F Source: [facility] PROFILE ([facility]) 9:36 AM [facility] [place] CODE TESTS RESULT OUT OF RANGE REFERENCE UNITS LAB L501.0100 74-106 mg/dL High GLU 122 Result Comment: Fasting Glucose result from 100 to 125 mg/dL suggests IMPAIRED HOMEOSTASIS per A.D.A. criteria. Please note revised GLUCOSE reference range effective 2017. LAB L501.1000 7-18 mg/dL Normal BUN 13 LAB L501.1100 0.55-1.02 mg/dL Normal CREAT,SERUM 0.72 Result Comment: The validity of the calculated GFR AND GFRAA in patients over 70 years has not been determined. Clinical correlation is essential. LAB L501.1110 >60 mL/min Normal EST GFR 88 Result Comment: Non- GFR Calc LAB L501.1115 >60 mL/min Normal EST GFR - AA 106 Result Comment: GFR Calc LAB L501.1300 10-20 RATIO Normal BUN/CRE 18.2 LAB L501.2200 8.5-10.1 mg/dL CA Normal 8.8 LAB L501.5300 136-145 mmol/L NA Normal 142 LAB L501.5600 3.5-5.1 mmol/L K Normal 3.8 LAB L501.5900 98-107 mmol/L CL Normal 103 LAB L501.6100 21.0-32.0 mmol/L High CO2 35.0 LAB L501.6200 5-15 Low GAP 4 Performed By: #### L100.0100, L500.2500 #### [facility] [address] [place], [address] INTERNAL MEDICINE Observed: 10/22/2017 Status: F Source: [facility] OFFICE VISIT 8:27 AM [facility] [place] [facility] [address] [place] [address] [place] [address] OFFICE VISIT Date of Service: 10/18/17 MR#: [id number] Acct: [id number] Name: LUIZA MAY Rep #: [id number] : 1955 Provider: Glenn Ulloa MD Age/Sex: 62/F Location: [facility] Status: Signed Intake Vital Signs10/18/17 Height 5 ft 2 in Intake Visit Reasons: EST CARE - REFERRAL PULMONARY Chief Complaint: establish care Is patient in pain?: No Allergies tetanus and diphtheria toxoids [tetanus AND diphtheria toxoids] Allergy (Verified 09/30/17 10:06) Hives Medications Aspirin E.C. [Ecotrin] 81 mg PO DAILY 02/22/17 [History Confirmed 10/18/17] Carvedilol [Coreg (Beta Marilyn)] 12.5 mg PO BID 02/22/17 [History Confirmed 10/18/17] Folic Acid 1 tab PO DAILY 02/22/17 [History Confirmed 10/18/17] Lisinopril [Zestril] 1 tab PO DAILY 02/22/17 [History Confirmed 10/18/17] Albuterol IH (ProAir) [Proair Hfa] 1 puff INHALATION Q4H PRN PRN #1 inhaler 09/17/17 [Rx Confirmed 10/18/17] atorvastatin 20 mg tablet 20 mg PO QDAY 10/18/17 [History Confirmed 10/18/17] escitalopram 5 mg tablet 5 mg PO QDAY #60 tab 10/18/17 [Rx Confirmed 10/18/17] pantoprazole 40 mg tablet,delayed release 40 mg PO QAM 10/18/17 [History Confirmed 10/18/17] spironolactone 25 mg tablet 25 mg PO QAM 10/18/17 [History Confirmed 10/18/17] zolpidem 10 mg tablet 10 mg PO QHS PRN #30 tab 10/18/17 [Rx Confirmed 10/18/17] PFSH Medical History History of pneumonia (Acute) Hyperlipidemia (Chronic) Hypertension (Chronic) Acute respiratory failure (Acute) Hemorrhagic cerebrovascular accident (CVA) (Resolved) Heart failure with reduced ejection fraction (Chronic) Metabolic encephalopathy (Acute) NSTEMI (non-ST elevated myocardial infarction) (Acute) Upper GI bleed (Acute) Transaminitis (Acute) Elevated serum creatinine (Acute) COPD (chronic obstructive pulmonary disease) (Chronic) Stroke (Acute) PRES (posterior reversible encephalopathy syndrome) (Acute) Surgical History H/O: section (Resolved) History of lumpectomy (Resolved) History of cholecystectomy (Resolved) Hx of appendectomy (Acute) Family History Sister Cancer lung Father Cancer lung Mother Cancer lung Social History Smoking Status: Former smoker how long ago did patient quit smokin, 1pk/day second hand exposure: Yes alcohol intake: former substance use type: does not use what type of physical activity do you participate in: walking frequency: daily HPI HPI Chief Complaint: establish care Details: LUIZA MAY, is a 62yo F who presents to the office today to establish care. She was recently admitted to the hospital for acute respiratory failure. She has a history of COPD/chronic retention of CO2. She also has a history of hypertension, hyperlipidemia, GERD, ? Stroke, insomnia and anxiety. She is most concerned about anxiety. She states that this is been going on for several years however she has had recent stresses and is becoming increasingly more difficult to cope. She has been on Xanax and clonazepam in the past without much help. She is currently in Ambien as needed for sleep. He was recently seen in the ER for a possible COPD exacerbation. ABG done at that time showed pretty much normal pH however PCO2 was elevated at 96 and CO2 was also elevated at 45. She denies any worsening shortness of breath or cough at this time. ROS Const Constitutional: Positive for sleep problems (trouble falling asleep and staying asleep.); no weight change, body ache, chills, fatigue, fever(s), change in appetite, snoring, weakness, frequent falls, headache(s) or excessive sweating Eyes Eyes: No change in vision, eye pain, light sensitivity or blurry vision ENT ENT: No headache(s), abnormal hearing, ear pain, tinnitus, nasal congestion, sore throat or neck pain Resp Respiratory: No snoring, cough, shortness of breath or wheezing Cardio Cardiology: No excessive sweating, chest pain at rest, chest pain with exertion, shortness of breath, dyspnea on exertion, palpitations, orthopnea or lightheadedness Gastro GI: No abdominal pain, change in bowel habits, constipation, diarrhea, vomiting, nausea/dyspepsia or cramping Musc Musculoskeletal: No neck pain, abnormal walking, joint pain, back pain, limited range of motion, numbness or tingling Skin Skin: No redness, dry skin, itching, lesions, wounds or rash Neuro Neurology: No weakness, frequent falls, headache(s), abnormal hearing, abnormal walking, numbness, tingling, abnormal speech, dizziness or memory loss Psych Psychiatric: No change in appetite, No memory loss, Positive for anxiety, No depression, No Thoughts of harming yourself/Others Endo Endocrine: No fatigue, excessive sweating, cold intolerance, increased thirst/drinking, heat intolerance, flushing or increased hunger Aller/Imm Allergy/Immunologic: No wheezing, itchy eyes, hives or seasonal allergy symptoms Justus/Lymp Hematologic/Lymphatic: No easy bleeding, easy bruising or enlarged lymph nodes Exam Const General: cooperative, no acute distress Orientation: alert, awake, oriented x3 [facility] Head: atraumatic, normocephalic Ears: hearing grossly normal bilaterally Resp Effort AND Inspection: normal respiratory effort, able to speak in complete sentences Auscultation: Bilateral: Diminished Lung Sounds Cardio Rate: regular rate Rhythm: regular rhythm Heart Sounds: S1 normal, S2 normal GI Palpation: soft, no hepatosplenomegaly Neuro General: alert, awake, oriented x3, moves all extremities, CN's II-XI intact bilaterally Extrem General: no pedal edema Psych Appearance: grossly normal Mental Status: mental status grossly normal Affect: normal affect Assessment AND Plan 1. Anxiety F41.9 Plan Chronic and not optimally controlled. Has been on benzodiazepines in the past without significant help. We will start on Lexapro 5 mg daily. Follow-up in 1 month. 2. Chronic obstructive pulmonary disease with acute exacerbation J44.1 Plan Most likely moderate to severe. Scheduled to have a PFT done soon. Recently seen in the ER due to concerns for possible exacerbation. ABG done with elevated PCO2 and BMP also with an elevated CO2. Patient denies any symptoms at this time. Per documentation she is a chronic retainer. Repeat BMP. Follow-up with results. Continue follow-up with pulmonary. 3. 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 Also possibly a primary metabolic alkalosis. Scheduled to have a sleep study soon. Patient will benefit from Bipap. Will monitor medications closely to avoid worsening alkalosis. Repeat BMP. 4. Insomnia G47.00 Plan Chronic. Has been on zolpidem for years. Refills given after OARRS was checked. Will follow. This note was generated with [employer] dictation software. It may contain incorrect words, spelling, and punctuation that were not noted in checking the note before signing. 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 Insomnia G47.00 10/22/17 0827 <Electronically signed by Glenn Ulloa MD> Date Glenn Ulloa MD Cosigner Signature: Date (if applicable) CC: EMERGENCY DEPARTMENT Observed: 10/02/2017 Status: F Source: [facility] SUMMARY 7:50 AM [facility] [place] [facility] Medical Records Department [address] [place] [address] Emergency Department Summary 09/24/17 0646 MR#: [id number] Acct: [id number] Name: LUIZA MAY Rep #: [id number] : 1955 61 From: Kvng Cornelius MD PCP: Joy Cohn MD Status: DEP ER - ER Visit Summary Date of Service: 09/24/17 Chief Complaint: Shortness of breath History of Present Illness: The patient is a 61 F who complains of shortness of breath. She has had this for approximately 1 week. The patient was admitted to the hospital 10 days ago for acute respiratory failure and was intubated. She was found to have strep pneumonia. She was able to be extubated and placed on oral antibiotics and was discharged to home. She states that she feels no better than when she left the hospital. She continues to feel short of breath. She has had a cough but denies fever or chest pain. She is on chronic oxygen at 2 L. She is taking nebulizers and puffers at home without any relief. She has been taking Ceftin ear as well. She does not smoke. Physical Examination: Vital signs reviewed. HEENT exam unremarkable. Heart is regular rate and rhythm without murmurs. Lungs have severely diminished breath sounds, but when I can hear them there is wheezing noted. She does have some abdominal breathing noted. Abdomen is soft and nontender. Extremities reveal no edema. Skin exam normal. Neurologic exam normal. Test Results: [] Emergency Department Course and Treatment: [] Treatment Plan: [] Disposition: [] Impression: [] This note was generated with MediW[employer] dictation software. It may contain incorrect words, spelling, and punctuation that were not noted in review of the chart prior to signing <Kvng Cornelius - Last Filed: 09/24/17 06:46> - ER Visit Summary Patient was signed out to me. EKG showed sinus rhythm at a rate of 74 no sign of acute ischemia or infarction pattern. Her chest x-ray showed chronic changes including COPD, but nothing acute. White count 11.5, sodium 148, CO2 was elevated greater than 45. Troponin normal. PH 7.35, CO2 96. Patient had breathing treatments and Solu-Medrol. On reassessment, her lungs had improved. She had a very slight expiratory wheeze. She was alert, oriented, and active. She was requesting to go home. She was ambulated in the department. She had normal assistance. She was on 2 L, her baseline. Her oxygen stayed between 92 and 98%. Patient would like to go home, and I believe this is reasonable. The only concerning finding was her elevated CO2 on the blood gas. She normally runs between 60 and 80. I discussed this with the patient. They will monitor for change in mental status or any difficulty breathing. I advised her that if her symptoms worsen or if she develops any new issues, she should return as she may need hospitalization. Patient voiced understanding and agreement. Will discharge. Continue home antibiotics and steroids. Breathing treatments as needed. Continue home oxygen as prescribed. Disposition: Discharge Impression: 1. COPD Exacerbation This note was generated with MediW[employer] dictation software. It may contain incorrect words, spelling, and punctuation that were not noted in review of the chart prior to signing <Patel Ragland - Last Filed: 10/02/17 07:50> ED Disposition <Kvng Cornelius - Last Filed: 09/24/17 06:46> <Patel Ragland - Last Filed: 10/02/17 07:50> - Plan for ED Patient: Disposition: Home or Assisted Living Chief Complaint: Shortness of Breath Instructions: ED COPD Flare Referrals: Joy Cohn MD [Primary Care Provider] - What to do if you have Problems For any increased pain, shortness of breath, bleeding, nausea or vomiting, chest pain, or any unexpected problems, contact your Primary Care Provider. Call [facility] ([phone]) or report to the closest Emergency Room. Call 911 if necessary. 09/29/17 8114 <Electronically signed by Kvng Cornelius MD> Date Kvng Cornelius MD 10/02/17 1460<Electronically signed by Patel Ragland MD> Cosigner Signature (If Indicated): Date Patel Ragland MD CC: Joy Cohn MD PULMONARY VISIT REPORT Observed: 09/30/2017 Status: F Source: [facility] 5:55 PM [facility] [place] [facility] [address] [place] [address] OFFICE VISIT Date of Service: 09/30/17 MR#: [id number] Acct: [id number] Name: LUIZA MAY Rep #: [id number] : 1955 Provider: Ema Stevens Age/Sex: 61/F [facility] Status: Signed Assessment AND Plan 1. Chronic obstructive pulmonary disease with acute exacerbation J44.1 Status Acute Plan Likely COPD given smoking history. Will obtain a complete pulmonary function test to determine if in fact she has COPD and to quantify it. I did start her on Symbicort today given her high use of rescue inhaler, this is to reduce the need for this rescue inhaler. She was personally instructed on how to use the inhaler, sample provided and first dose given in the office today. Alpha-1 antitrypsin deficiency screening done in the office today as well. Follow-up with Dr. Flannery in 1 month to discuss test results. Defer further medication changes to him at that follow-up. Patient is requesting a referral for a new primary care provider, she has been referred to [facility]. Orders Orders: Referrals: 2. Acute respiratory failure with hypercapnia J96.02 Status Acute Plan New. Discussed with the patient may need to keep oxygen saturations 89-92%. Educated her on the deleterious effects of hypoxia. Follow-up with Dr. Flannery in 1 month. 3. Daytime hypersomnia G47.19 Status Acute Plan Several symptoms consistent with obstructive sleep apnea and daytime hypersomnia. Plan to evaluate with a complete polysomnogram and a titration study as indicated. Lengthy discussion about the pathophysiology of obstructive sleep apnea, the risks of untreated sleep apnea and the benefits of treatment. The patient is agreeable to testing and to treatment if indicated. Follow-up with Dr. Flannery in 1 month. Orders Orders: Plan Detail Other Orders Orders: Other Medications Discontinued: cefdinir Discontinued Reason: Order [id number] mg PO BID April Carmona ed prednisone Discontinued Reason: Pt no longe40 mg (2 x 20 mg) PO DAILY April Carmona r taking Follow Up 1 Month (DMB) HPI HPI Comments Details: This is a 61 year old F, currently under the care of Joy Cohn, here to follow up after a recent hospitalization at [facility] , from September 14 - September 17, 2017 for acute COPD exacerbation, acute community acquired pneumonia, strep pneumo right lower lobe, acute hypoxic respiratory failure and hypercarbic encephalopathy. The hospital stay was complicated by temporary respiratory support by invasive ventilator. 18 pages of hospital documentation was reviewed, and found to be significant for CT of the head and brain without contrast that showed encephalomalacia consistent with old infarcts of the right occipital and left parietal lobes. Chest x-ray showed calcified bilateral hilar and right mediastinal lymph nodes, repeat chest x-ray showed a patchy infiltrate in the right lung base, additional chest x-ray showed airspace disease in the right base with a small right pleural effusion and possible mild pneumonia on chronic obstructive pulmonary disease, arterial blood gas sample showed an actual bicarbonate level of 31.2 with a pH of 7.4 and a PCO2 of 50.6 indicating chronic CO2 retention. Upon discharge, the patient completed a 10 day course of cefdinir and a 12 day course of prednisone. Today she is ambulatory, currently wearing her nasal cannula oxygen and she is accompanied by her . She reports that prior to her hospitalization she had been feeling ill for quite some time. She reports persistent daytime hypersomnia, at least one episode of nocturia nightly. Her reports that she snores and he has witnessed episodes of apneas. She also experiences frequent morning headaches. She reports shortness of breath on exertion, and is exerted quite easily. She also has experienced lower extremity edema. She denies any chest pain or palpitations. She does report having wheezing and chest tightness. She is currently on an albuterol rescue inhaler which she is using 4-6 times daily. She reports that it does give her some relief of her wheezing and shortness of breath. See complete review of systems. Intake Vital Signs09/30/17 Blood Pressure 98/59 09/30/17 Blood Pressure Location Rt brachial 09/30/17 Blood Pressure Position Sitting Intake Visit Reasons: Hospital FU Chief Complaint: respiratory failure DME Vendor: JULES Accompanied by: Allergies tetanus and diphtheria toxoids [tetanus AND diphtheria toxoids] Allergy (Verified 09/30/17 10:06) Hives Medications Aspirin E.C. [Ecotrin] 81 mg PO DAILY 02/22/17 [History Confirmed 09/30/17] Atorvastatin Calcium 1 tab PO DAILY 02/22/17 [History Confirmed 09/30/17] Carvedilol [Coreg (Beta Marilyn)] 12.5 mg PO BID 02/22/17 [History Confirmed 09/30/17] Folic Acid 1 tab PO DAILY 02/22/17 [History Confirmed 09/30/17] Lisinopril [Zestril] 1 tab PO DAILY 02/22/17 [History Confirmed 09/30/17] Spironolactone 1 tab PO DAILY 02/22/17 [History Confirmed 09/30/17] Albuterol IH (ProAir) [Proair Hfa] 1 puff INHALATION Q4H PRN PRN #1 inhaler 09/17/17 [Rx Confirmed 09/30/17] Magnesium Hydroxide [Milk Of Magnesia] 30 ml PO DAILY PRN PRN udc 09/17/17 [Rx Confirmed 09/30/17] PFSH Medical History Acute respiratory failure (Acute) Hemorrhagic cerebrovascular accident (CVA) (Resolved) Heart failure with reduced ejection fraction (Chronic) Metabolic encephalopathy (Acute) NSTEMI (non-ST elevated myocardial infarction) (Acute) Upper GI bleed (Acute) Transaminitis (Acute) Elevated serum creatinine (Acute) COPD (chronic obstructive pulmonary disease) (Acute) Alcoholism (Chronic) Stroke (Acute) PRES (posterior reversible encephalopathy syndrome) (Acute) Surgical History H/O: section (Resolved) History of lumpectomy (Resolved) History of cholecystectomy (Resolved) Family History Sister Cancer lung Father Cancer lung Mother Cancer lung Social History Smoking Status: Former smoker how long ago did patient quit smokin, 1pk/day second hand exposure: Yes alcohol intake: former substance use type: does not use Review of Systems Const CONSTITUTIONAL: Positive fatigue; negative anorexia, body ache, chills, daytime sleepiness, fever(s), night sweats, oral thrush, stops breathing during sleep, weight loss, sleeping in chair, weight loss, weight gain, frequent colds, seasonal allergies, other, headache(s) or orthopnea EETM Ear Nose Throat Mouth: Positive hearing normal and nasal discharge (clear); negative hard of hearing, hoarseness, dry mouth in morning, change in vision, itchy eyes, eye pain, swallowing Difficulty, ear pain, nose bleed, headache(s), mouth pain, nasal congestion, post nasal drip, sinus pain, sinus pressure, sore throat or other Cardio Cardiovascular: Positive edema Location: lower extremity; negative chest pain, chest pain at rest, chest pain with activity, irregular heart rhythm, shortness of breath when lying down, palpitations, murmur or other Resp Respiratory: Positive as per HPI and shortness of breath shortness of breath: Positive with activity; negative pain with cough, wheezing, chest congestion, cough, chest tightness, pain on inspiration, inhalers, increase use of rescue inhalers, snoring, apnea or other Gastro Gastrointestional: Negative bloody stools, change in appetite, difficulty swallowing, reflux, hematemesis, melena stool, loose stool, constipation or other Genitourinary: Negative blood in urine, nocturia, pain with urination or other Musc Musculoskeletal: Negative body pain, back pain, neck pain or other Skin/Breast Skin/Breast: Negative dry skin, itching, rash, unusual bruising, breast lump or other Neuro Neurological: Positive weakness; negative restless legs, confusion or other Psych Psychocological: Negative abnormal sleep pattern, anxiety, thoughts of hurting self/others, hopelessness or other Lymph Lymphatic: Negative easy bleeding, easy bruising, swollen lymph nodes or other Exam Const Constitutional: Positive conversant, cooperative, in no acute respiratory distress, well developed, well nourished, good hygiene, frail appearing, wearing supplemental oxygen and dyspenic Head Head: Positive normocephalic and atraumatic; negative cyanosis of lips/distal nose Eyes Eye: Positive clear conjunctiva and nystagmus; negative scleral abnormality Ears Ear: Positive hearing normal and external ears normal; negative hard of hearing Nose Nose: Positive external nose normal and no nasal discharge; negative epistaxis Mouth Mouth: Positive oral mucosae normal, no lesions, poor dentition and crowded posterior oropharynx; negative post nasal drip, malodorous breath or oral thrush present Mallampati Score: III: Mallampati Score Neck Neck: Positive normal visual inspection, full ROM and trachea midline; negative lymphadenopathy, JVD or tender Chest Wall Chest: Positive normal inspection of the chest and symmetric chest movement; negative increased A/P diameter Resp lung sounds: Positive diminished, prolonged expiratory time and increased work of breathing; negative wheezes, wheeze present on forced exhalation, rhonchi, rales, dullness to percussion or use of accessory muscles Cardio Cardiac: Positive regular rate, regular rhythm, S1 normal and S2 normal; negative murmur GI GI: Positive normal to inspection and normal bowel sounds; negative distended Genitourinary: Positive deferred Musc Musculoskeletal: Positive steady gait and ROM normal; negative kyphosis or scoliosis Skin Pulmonary Skin Exam: Positive intact; negative rash, lesion, ulcers, erythema, scaly or dermal atrophy Pulses Pulse: Yes pulses normal x4 extremities Extremities Extremities: No edema, No clubbing, Yes capillary refill normal, No stasis dermatitis, No cyanosis Neuro Neurologic: Yes conversant, Yes cooperative, Yes normal cognition, Yes normal coordination, Yes normal concentration, Yes understands questions, Yes no focal neuro deficits, No tremor Lymph Lymphatic: No lymphadenopathy, No tenderness, No cervical adenopathy, No axillary adenopathy Psych Appearance: Positive grossly normal, eye contact and well kempt Mental Status: Positive mental status grossly normal Mood: Positive other (Depressed and tearful) Affect: Positive tearful and labile affect Office Procedures Alpha One Finger Stick Alpha One Procedure performed by: April Carmona Alpha One Screening Test: Yes alpha one test completed, tolerated well, dressing applied and continue to monitor Inhaler Training Inhaler Training Procedure performed by: Ema Stevens Inhaler Training: Yes personally trained on inhaler use, sample provided, first dose given in the office, expresses understanding and continue to monitor Coding Level of Care Code Off vis,est,level 4 Diagnoses Chronic obstructive pulmonary disease with acute exacerbation J44.1 COPD type: COPD with acute exacerbation Acute respiratory failure with hypercapnia J96.02 Respiratory failure complication: hypercapnia Daytime hypersomnia G47.19 Additional Codes Alpha One (NOCHG) 09/30/17 1755 <Electronically signed by Ema Stevens MILKING MACHINE TECHNICIAN-C> Date Ema Stevens MILKING MACHINE TECHNICIAN-C Cosigner Signature: Date (if applicable) CC: Glenn Ulloa MD 12 LEAD ELECTROCARDIOGRAM Observed: 09/28/2017 Status: F Source: [facility] 1:28 PM [facility] [place] [facility] Cardiovascular Services [address] [place] [address] 12 Lead EKG 09/24/17 0706 MR#: [id number] Acct: [id number] Name: LUIZA MAY Rep #: [id number] : 1955 61 From: Shahzad Long MD Attending Dr: Status: DEP ER Ordering Dr: Kvng Cornelius MD Date: 09/24/17 Location: ED Sex: F C Admitted: Test Reason : SOB Blood Pressure : / mmHG Vent. Rate : 074 BPM Atrial Rate : 074 BPM P-R Int : 102 ms QRS Dur : 074 ms QT Int : 368 ms P-R-T Axes : 075 043 023 degrees QTc Int : 408 ms Sinus rhythm with short [place] Otherwise normal ECG Confirmed by ETHAN MENDES, SHAHZAD ([id number]), senior editor AJ AYOUB ([id number]) on 09/28/2017 1:28:35 PM Referred By: ZOE Confirmed By:SHAHZAD LONG MD 09/28/17 1328 Date Shahzad Long MD CC: Patel Ragland MD; Kvng Cornelius MD; Joy Cohn MD Signed DISCHARGE INSTRUCTION Observed: 09/24/2017 Status: F Source: [facility] 5:11 PM [facility] REPOSITORY [facility] Medical Records Department [address] [place] [address] Discharge Instruction 09/24/17 0838 MR#: [id number] Acct: [id number] Name: LUIZA MAY Rep #: [id number] : 1955 61 From: Patel Ragland MD PCP: Joy Cohn MD Status: DEP ER ED Disposition - Plan for ED Patient: Chief Complaint: Shortness of Breath Instructions: ED COPD Flare Referrals: Joy Cohn MD [Primary Care Provider] - What to do if you have Problems For any increased pain, shortness of breath, bleeding, nausea or vomiting, chest pain, or any unexpected problems, contact your Primary Care Provider. Call [facility] ([phone]) or report to the closest Emergency Room. Call 911 if necessary. 09/24/17 1711 <Electronically signed by Patel Ragland MD> Date Patel Ragland MD Cosigner Signature (If Indicated): Date CC: Joy Cohn MD BLOOD GASES BY CPS Collected: 09/24/2017 Status: F Source: [facility] 7:20 AM [facility] [place] TYPE CODE TESTS RESULT OUT OF RANGE REFERENCE UNITS LAB L9000.9990 Normal BLD GAS TYPE ART LAB L9001.1000 Normal SITE R RADIAL LAB L9001.1010 Normal SHAW TEST POS LAB L9001.1050 O2 Normal Delivery Dev Nasal Can LAB L9001.1055 /min Normal LPM 4.0 LAB L9001.1104 Normal Results To ED LAB L9001.1105 Normal Time Given 720 LAB L9001.1110 7.35-7.45 pH Normal - I-STAT 7.35 LAB L9001.1210 35-45 mmHg High alert pCO2 - ISTAT 96.5 LAB L9001.1310 75-100 mmHG High PO2 I-STAT 167 LAB L9001.2300 22-26 mmol/L High HCO3 ISTAT 53.1 LAB L9001.2400 -2 to +2 mmol/L High BE ISTAT 28 LAB L9001.2415 mmol/L Normal TOTAL CO2 > 50 ISTAT LAB L9001.2425 95-99 % Normal SO2 ISTAT 99 Performed By: #### L9000.0800 #### [facility] Point [place] [address] CBC W/DIFF, AUTOMATED Collected: 09/24/2017 Status: C Source: [facility] 7:08 AM [facility] [place] TYPE CODE TESTS RESULT OUT OF RANGE REFERENCE UNITS LAB L100.1000 4.4-11.0 K/mm3 High WBC 11.5 LAB L100.1200 4.2-5.4 M/mm3 Normal RBC 4.91 LAB L100.1300 12.0-15.0 g/dl Normal HGB 14.5 LAB L100.1400 37-47 % High HCT 49.9 LAB L100.1500 81-99 fL High MCV 101.6 LAB L100.1600 27.0-32.0 pg Normal MCH 29.5 LAB L100.1700 32-36 g/gl Low MCHC 29.1 LAB L100.1810 11.6-14.6 % High RDW CV 15.7 LAB L100.1820 35.1-43.9 fl High RDW SD 58.2 LAB L100.1900 150-450 K/mm3 Normal PLT 222 LAB L100.2000 6.2-12.0 fl Normal MPV 10.2 LAB L100.2100 47-70 % Normal NEUT% 52.8 LAB L100.2200 19-41 % Normal LY% 29.3 LAB L100.2300 0-10 % High MONO% 14.5 LAB L100.2400 0-5 % Normal EO% 2.8 LAB L100.2500 0-1 % Normal BASO% 0.1 LAB L100.2550 0.0-0.9 % Normal IM GRAN % 0.500 Result Comment: IG% - Immature Granulocytes (promyelocytes, myelocytes and metamyelocytes) > 1% indicates that a LEFT SHIFT is Present. LAB L100.2620 2.0-7.7 X10 3/uL Normal Absolute Neut 6.1 LAB L100.2720 0.83-4.51 X10 3/ul Normal Absolute Lymph 3.36 LAB L100.9900 Normal PATH REV Reviewed Result Comment: Leukocytosis. Macrocytosis. Clinical correlation necessary. Roberto Carlos Delarosa M.D. 09/27/17 AMENDED REPORT 09/27/17 1341 PATH REV previously reported as: Ivon mast Performed By: #### L100.0100 #### [facility] [address] [place], [address] BASIC METABOLIC Collected: 09/24/2017 Status: F Source: [facility] PROFILE (BMP) 7:08 AM [facility] [place] Order Comment: 'TROP' Serial specimen #1, #2, #3, or #4: 1 TYPE CODE TESTS RESULT OUT OF RANGE REFERENCE UNITS LAB L501.0100 74-106 mg/dL Normal GLU 82 Result Comment: Please note revised GLUCOSE reference range effective 2017. LAB L501.1000 7-18 mg/dL Normal BUN 13 LAB L501.1100 0.55-1.02 mg/dL Low CREAT,SERUM 0.50 Result Comment: The validity of the calculated GFR AND GFRAA in patients over 70 years has not been determined. Clinical correlation is essential. LAB L501.1110 >60 mL/min Normal EST GFR 133 Result Comment: Non- GFR Calc LAB L501.1115 >60 mL/min Normal EST GFR - AA 160 Result Comment: GFR Calc LAB L501.1255 ml/min Normal Estimated CRCL 92.27 LAB L501.1300 10-20 RATIO High BUN/CRE 26.0 LAB L501.2200 8.5-10 mg/dL Low .1 CA 8.3 LAB L501.5300 136-14 mmol/L High 5 NA 148 LAB L501.5600 3.5-5. mmol/L Normal 1 K 4.4 Result Comment: Moderate Hemolysis, Result may be falsely increased. LAB L501.5900 98-107 mmol/L Normal CL 100 LAB L501.6100 21.0-32.0 mmol/L High alert > CO2 45.0 Result Comment: Critical Result(s) Called at: 06:35:02 09/24/2017 by: Diane Limon LAB L501.6200 5-15 Normal Test not performed GAP Performed By: #### L500.2500, L501.4010 #### [facility] [address] [place], [address] TROPONIN-I Collected: 09/24/2017 Status: F Source: [facility] 7:08 AM [facility] [place] Order Comment: 'TROP' Serial specimen #1, #2, #3, or #4: 1 TYPE CODE TESTS RESULT OUT OF RANGE REFERENCE UNITS LAB L501.4010 <0.06 ng/mL Normal < 0.02 TROPONIN-I Result Comment: TROPONIN-I EXPECTED VALUES <0.05 NEGATIVE 0.06 - 0.59 AT RISK OF MT > OR = 0.60 SUGGEST MT Performed By: #### L500.2500, L501.4010 #### [facility] [address] [facility] [address] [place], [address] CHEST 1 VIEW Observed: 09/24/2017 Status: F Source: [facility] (PORTABLE) 6:44 AM [facility] [place] [facility] Imaging Services [address] [place] [address] Chest 1 View (Portable) MR#: [id number] Acct: [id number] Name: LUIZA MAY Rep #: [id number] : 1955 F 61 From: Brian Funez DO PCP: Favio MENDES,Joy Status: REG ER Study: Chest 1 View (Portable) Date of Exam: 09/24/17 Exam# [id number] Ordering Dr: Kvng Cornelius MD STUDY: X-RAY CHEST REASON FOR EXAM: Female, 61 years old. Cough TECHNIQUE: Single AP portable view of the chest. COMPARISON: September 15, 2017 FINDINGS: There is hyperinflation of the lungs consistent with chronic obstructive lung disease (COPD). Enteric tube has been removed. ET tube has been removed. Lungs are clear. There is no demonstrated pleural abnormality. Normal size heart. Normal mediastinum and jacinto. Normal visualized pulmonary arteries. Normal visualized aortic arch and descending thoracic aorta. Normal visualized thoracic spine. Normal visualized ribs, clavicles, and shoulders. There is no demonstrated abnormality of the visualized soft tissue structures of the upper abdomen. RAD/Chest 1 View (Portable) IMPRESSION: COPD. Lungs are clear. Electronically Signed: Brian FunezDO at 7:19 EDT Tel , Service support , CC: Kvng Cornelius MD; Joy Cohn MD Central Sterile Technician: Signed DISCHARGE SUMMARY Observed: 09/21/2017 Status: F Source: [facility] 1:45 PM [facility] [place] Medical Records Department [address] [place] [address] Discharge Summary 09/17/17 1723 MR#: [id number] Acct: [id number] Name: LUIZA MAY Rep #: [id number] : 1955 61 From: Booker ROSENTHAL PCP: Joy Cohn MD Status: DIS IN Y [facility] <Booker Pasron - Last Filed: 09/17/17 17:38> Discharge Date and Diagnosis Date of Admission: 09/14/17 Date of Discharge: 09/17/17 - Primary Discharge Diagnosis Acute COPD exacerbation Acute community acquired PNA - strep pneumo, right lower lobe Acute UTI - E coli Acute hypoxic respiratory failure Hypercarbic encephalopathY hx alcoholism hx upper GI bleed (enedina tracy tears), prior hemorrhagic stroke HLD Prior smoker CAD - Secondary Discharge Diagnosis Chronic Problems Heart failure with reduced ejection fraction (Chronic) Alcoholism (Chronic) Hospital Course and Treatment Imaging Results: CT/Brain/Head without Contrast IMPRESSION: Regions of encephalomalacia consistent with old infarcts of the right occipital and left parietal lobes. These appear stable in the interval from the previous study. There is no evidence of acute infarct or intracranial hemorrhage. If acute infarct is clinically suspected, MRI may be helpful for further evaluation at this time. RAD/Chest 1 View (Portable) IMPRESSION: Calcified bilateral hilar and right mediastinal nodes. No acute cardiopulmonary disease process is seen. RAD/Chest 1 View (Portable) IMPRESSION: Degenerative changes, as described above. No demonstrated acute cardiopulmonary process. Endotracheal tube is seen its tip is 3.2 cm superior to the claude. An OG tube is seen its tip is below the diaphragm is in good position. RAD/Chest 1 View (Portable) IMPRESSION: The lines are in adequate position. COPD. Indistinct right diaphragmatic contour could be due to mild pleural thickening and/or effusion. RAD/Chest 1 View (Portable) IMPRESSION: There is an ill-defined patchy infiltrate of the right lung base which may represent pneumonic process or atelectasis. Nasogastric and endotracheal tubes appearing in adequate position. RAD/Chest 1 View (Portable) IMPRESSION: Airspace disease right base and small right pleural effusion possible mild pneumonia on COPD. The lines are in adequate position. Consults: Brown - intensive care / pulm Operations: None Procedures: None, Intubation Summary of Care Provided: Physical exam on day of discharge: General: Resting comfortably NAD Psych: A/Ox3 normal affect HEENT: PEARRLA AT NC Neck: Supple NT CV: RRR no m/t/r/g/h Resp: CTA Abd: [id number] Soft NT no guarding or rigidity Ext: DP2+= 2+ pitting edema bilateral lower extremities up to the knees. Skin: W/D normal turgor Lymph/Heme: No active bleeding or adenopathy Neuro: CN2-12 intact Hospital course: The patient is a 61 year old F who presented to the ER with increased confusion, cough, hypoxia and significant acidosis on ABG. She had a hx of COPD, alcoholism, prior smoker, hx systolic CHF, NSTEMI/CAD, hemorrhagic CVA, Enedina tracy tear. Given her respiratory acidosis she was intubated and placed in the ICU with steroids and aerosol therapy. CT brain revealed old strokes. An Xray revealed right sided pna and she was initially placed on vanc and zosyn. These were transitioned to rocephin when cultures revealed strep pneumo. She was extubated and transferred to the PCU and continued to improve. She was unable to be weaned off O2 and required O2 for going home. She was transitioned to PO prednisone and will have 5 more days of therapy. She was not on any aerosols at home prior to admission. She was given albuterol for home. Urine culture demonstrated E coli. Both the strep and e coli were sensative to Rocephin. She was transitioned to cefdinir to complete a total of 7 days of antibiotic therapy. She was in stable condition and discharged home on home O2 and the above medications. This patient was seen by Booker Parson PA-C under the supervision of Doctor Galo. [] Discharge Diet: Low fat/ Low Cholesterol, 2000 mg Sodium Diet Discharge Activity: Return to Normal Activity Home Medications: Medications to take at Discharge Aspirin E.C. [Ecotrin] 81 mg PO DAILY 02/22/17 Atorvastatin Calcium 1 tab PO DAILY 02/22/17 Carvedilol [Coreg (Beta Marilyn)] 12.5 mg PO BID 02/22/17 Folic Acid 1 tab PO DAILY 02/22/17 Lisinopril [Zestril] 1 tab PO DAILY 02/22/17 Spironolactone 1 tab PO DAILY 02/22/17 Albuterol IH (ProAir) [Proair Hfa] 1 puff INHALATION Q4H PRN PRN #1 inhaler 09/17/17 Cefdinir 300 mg PO BID #8 cap 09/17/17 Magnesium Hydroxide [Milk Of Magnesia] 30 ml PO DAILY PRN PRN udc 09/17/17 Prednisone 40 mg PO DAILY #10 tab 09/17/17 Following Prescrptions Were Given to Patient: Albuterol IH (ProAir) [Proair Hfa] 1 puff INHALATION Q4H PRN PRN #1 inhaler PRN Reason: Sob AND /Or Wheezing Cefdinir 300 mg PO BID #8 cap Prednisone 40 mg PO DAILY #10 tab Primary Care Physician: Joy Cohn MD [Primary Care Provider] - Please follow up with your Primary Care Physician in: 1-2 weeks Please Follow Up With: Anurag Flannery DO When: 2 weeks Please Follow Up With: Joy Cohn MD When: 1-2 weeks Disposition: Home Minutes spent on discharge:: 40 Patient Condition:: Stable Medical Necessity - Tobacco Use Smoking Status: Former smoker Meaningful Use Info Meaningful Use Diagnoses (Choose all that apply): None applicable <Vipin Rosenthal - Last Filed: 09/21/17 13:45> Discharge Date and Diagnosis - Secondary Discharge Diagnosis Chronic Problems Heart failure with reduced ejection fraction (Chronic) Alcoholism (Chronic) Hospital Course and Treatment Summary of Care Provided: The patient is a 61 year old F [] Code Visit This patient was seen in conjunction with Booker ROSENTHAL. I have independently interviewed and examined the patient and reviewed pertinent historical, laboratory and other data. Please refer to discharge summary note for details of this patient's presentation, findings and recommendations. I have reviewed Booker's note and concur fully with documented findings. In brief, patient is a 61YO male admitted with acute respiratory failure requiring intubation secondary to streptococcal pneumonia. Patient was intubated in the emergency room for acute respiratory failure with hypoxia and hypercapnia. She was extubated on 09/15/2017. Respiratory panel was negative. Sputum culture had 4+ white blood cells and was positive for streptococcal pneumoniae. A culture grew greater than 100,000 colonies of E. coli from a catheterized specimen. He was treated with steroids, aerosolized bronchodilators, incentive spirometry and PEP therapy. Physical examination: Alert and oriented 3. No apparent distress. Lungs-diminished with rare expiratory wheeze. Heart-regular rate and rhythm, no gallop, no rub. Abdomen-soft, nontender, nondistended, no guarding with palpation. No cyanosis, no peripheral edema. Pulse ox with ambulation on room air was 79 per percent and on 1 L was 94%. Assessment: 1. Severe sepsis secondary to streptococcal pneumonia with acute respiratory failure and acute COPD exacerbation requiring intubation 2. Acute cystitis secondary to E. coli 3. Encephalopathy secondary to hypercarbia I have discussed my assessment with Booker and orders have been written. Inpatient E AND M: [id number] Disch Hosp 09/17/17 0168 <Electronically signed by Booker ROSENTHAL> Date Booker ROSENTHAL 09/21/17 1345<Electronically signed by Vipin Rosenthal DO> Cosigner Signature (if applicable): Date Vipin Rosenthal DO CC: GALO Parson; Barb Rosenthal; Joy Cohn MD Signed DISCHARGE INSTRUCTION Observed: 09/17/2017 Status: F Source: [facility] 4:19 PM [facility] [place] [facility] Medical Records Department [address] [place] [address] Instructions for Home/Discharge Instructions 09/17/17 1618 MR#: [id number] Acct: [id number] Name: LUIZA MAY Rep #: [id number] : 1955 61 From: Booker ROSENTHAL PCP: Joy Cohn MD Status: ADM IN - Discharge Diagnoses Current Active Problems: Current Active and Chronic Problems Acute respiratory failure (Acute) You will use the following diet at home:: Cardiac Your food should be the consistency of: Regular Your liquids should be the consistency of: Regular/Thin Discharge Activity: Return to Normal Activity Allergies/Adverse Reactions: Allergies tetanus and diphtheria toxoids [tetanus AND diphtheria toxoids] Allergy (Verified 09/13/17 21:27) Hives Medications to take at Discharge Aspirin E.C. [Ecotrin] 81 mg PO DAILY 02/22/17 Atorvastatin Calcium 1 tab PO DAILY 02/22/17 Carvedilol [Coreg (Beta Marilyn)] 12.5 mg PO BID 02/22/17 Folic Acid 1 tab PO DAILY 02/22/17 Lisinopril [Zestril] 1 tab PO DAILY 02/22/17 Spironolactone 1 tab PO DAILY 02/22/17 Albuterol IH (ProAir) [Proair Hfa] 1 puff INHALATION Q4H PRN PRN #1 inhaler 09/17/17 Cefdinir 300 mg PO BID #8 cap 09/17/17 Magnesium Hydroxide [Milk Of Magnesia] 30 ml PO DAILY PRN PRN udc 09/17/17 Prednisone 40 mg PO DAILY #10 tab 09/17/17 The following prescriptions were given: Albuterol IH (ProAir) [Proair Hfa] 1 puff INHALATION Q4H PRN PRN #1 inhaler PRN Reason: Sob AND /Or Wheezing Cefdinir 300 mg PO BID #8 cap Prednisone 40 mg PO DAILY #10 tab Primary Care Physician: Joy Cohn MD [Primary Care Provider] - Please follow up with your Primary Care Physician in: 1-2 weeks Please Follow Up With: Anurag Flannery DO When: 2 weeks Proposed Discharge Date: 09/17/17 09/17/17 1619 <Electronically signed by Booker ROSENTHAL> Date Booker ROSENTHAL CC: Anurag Flannery D.O.; Joy Cohn MD 12 LEAD ELECTROCARDIOGRAM Observed: 09/17/2017 Status: F Source: [facility] 1:55 PM [facility] Cardiovascular Services [address] [place] [address] 12 Lead EKG 09/15/17 0501 MR#: [id number] Acct: [id number] Name: LUIZA MAY Rep #: [id number] : 1955 61 From: Shahzad Long MD Attending Dr: Barb Rosenthal Status: ADM IN Ordering Dr: Vipin Rosenthal DO Date: 09/15/17 Location: [facility] Sex: F C Admitted: 09/14/17 Test Reason : AM EKG Blood Pressure : / mmHG Vent. Rate : 084 BPM Atrial Rate : 084 BPM P-R Int : 110 ms QRS Dur : 084 ms QT Int : 402 ms P-R-T Axes : 071 043 026 degrees QTc Int : 475 ms Sinus rhythm with short [place] Otherwise normal ECG When compared with ECG of 13-SEP-2017 22:56, MANUAL COMPARISON REQUIRED, DATA IS UNCONFIRMED Confirmed by SHAHZAD LONG MD ([id number]), senior editor AJ AYOUB ([id number]) on 09/17/2017 1:55:00 PM Referred By: JORDY Confirmed By:SHAHZAD LONG MD 09/17/17 0734 Date Shahzad Long MD CC: Barb Rosenthal; Joy Cohn MD Signed VANCOMYCIN, TROUGH Collected: 09/17/2017 Status: F Source: [facility] LEVEL 9:15 AM [facility] Order Comment: Time Medication is to be Given? 0900 TYPE CODE TESTS RESULT OUT OF REFERENCE UNITS RANGE LAB L501.8820 5.0-15.0 ug/mL Low VANCO, TROUGH 3.9 Result Comment: VANCOMYCIN STANDARED DRUG THERAPY TROUGH LEVEL: 5.0 - 15.0 mg/L VANCOMYCIN HIGH INTENSITY THERAPY TROUGH LEVEL: 15.0 - 20.0 mg/L High Intensity therapy recommended for serious life threatening infections include: - Meningitis -Endocarditis -Pneumonia (Ventilator/Healtcare Associated) -Sepsis PLEASE CONTACT PHARMACY SERVICES (#[id number]) FOR INTERPRETATION OF RESULTS. Performed By: #### L501.8820 #### [facility] [address] [place], [address] BEDSIDE GLUCOSE Collected: 09/16/2017 Status: F Source: [facility] 9:10 PM [facility] TYPE CODE TESTS RESULT OUT OF REFERENCE UNITS RANGE LAB L501.080 70-110 mg/dL High BEDSIDE GLU 125 Result Comment: MANAGEMENT OF PATIENT CARE PER NURSING PROTOCOL Performed By: #### L501.080 #### [facility] Point of Care [address] [place] [address] BEDSIDE GLUCOSE Collected: 09/16/2017 Status: F Source: [facility] 4:55 PM [facility] TYPE CODE TESTS RESULT OUT OF REFERENCE UNITS RANGE LAB L501.080 70-110 mg/dL High BEDSIDE GLU 128 Result Comment: MANAGEMENT OF PATIENT CARE PER NURSING PROTOCOL Performed By: #### L501.080 #### [facility] Point of Care [address] [place] [address] BEDSIDE GLUCOSE Collected: 09/16/2017 Status: F Source: [facility] 11:52 AM [facility] TYPE CODE TESTS RESULT OUT OF REFERENCE UNITS RANGE LAB L501.080 70-110 mg/dL High BEDSIDE GLU 140 Result Comment: MANAGEMENT OF PATIENT CARE PER NURSING PROTOCOL Performed By: #### L501.080 #### [facility] Point of Care [address] [place] [address] BEDSIDE GLUCOSE Collected: 09/16/2017 Status: F Source: [facility] 6:52 AM [facility] TYPE CODE TESTS RESULT OUT OF REFERENCE UNITS RANGE LAB L501.080 70-110 mg/dL High BEDSIDE GLU 271 Result Comment: MANAGEMENT OF PATIENT CARE PER NURSING PROTOCOL Performed By: #### L501.080 #### [facility] Point of Care [address] [place], [place] [id number] BEDSIDE GLUCOSE Collected: 09/15/2017 Status: F Source: [facility] 9:24 PM [facility] TYPE CODE TESTS RESULT OUT OF REFERENCE UNITS RANGE LAB L501.080 70-110 mg/dL High BEDSIDE GLU 132 Result Comment: MANAGEMENT OF PATIENT CARE PER NURSING PROTOCOL Performed By: #### L501.080 #### [facility] Point of Care [address] [place], [place] [id number] BEDSIDE GLUCOSE Collected: 09/15/2017 Status: F Source: [facility] 5:03 PM [facility] TYPE CODE TESTS RESULT OUT OF REFERENCE UNITS RANGE LAB L501.080 70-110 mg/dL High BEDSIDE GLU 126 Result Comment: MANAGEMENT OF PATIENT CARE PER NURSING PROTOCOL Performed By: #### L501.080 #### [facility] Point of Care [address] [place], [place] [address] 12 LEAD ELECTROCARDIOGRAM Observed: 09/15/2017 Status: F Source: [facility] 4:05 PM [facility] Cardiovascular Services [address] [place] [address] 12 Lead EKG 09/12/17 1655 MR#: [id number] Acct: [id number] Name: LUIZA MAY Rep #: [id number] : 1955 61 From: Shahzad Long MD Attending Dr: Status: DEP ER Ordering Dr: Darrick Mckeon DO Date: 09/12/17 Location: ED Sex: F C Admitted: Test Reason : CONFUSION Blood Pressure : / mmHG Vent. Rate : 094 BPM Atrial Rate : 094 BPM P-R Int : 126 ms QRS Dur : 076 ms QT Int : 346 ms P-R-T Axes : 071 087 055 degrees QTc Int : 432 ms Normal sinus rhythm ST AND T wave abnormality, consider anterior ischemia Abnormal ECG Confirmed by SHAHZAD LONG MD ([id number]), senior editor AJ AYOUB ([id number]) on 09/15/2017 4:05:11 PM Referred By: KHARI Confirmed By:SHAHZAD LONG MD 09/15/17 1605 Date Shahzad Long MD CC: Joy Cohn MD; Darrick Mckeon Signed 12 LEAD ELECTROCARDIOGRAM Observed: 09/15/2017 Status: F Source: [facility] 3:38 PM [facility] [place] [address] 12 Lead EKG 09/13/17 2256 MR#: [id number] Acct: [id number] Name: LUIZA MAY Rep #: [id number] : 1955 61 From: Shahzad Long MD Attending Dr: Barb Rosenthal Status: ADM IN Ordering Dr: Neptali Garcia MD Date: 09/13/17 Location: ICU Sex: F C Admitted: 09/14/17 Test Reason : Blood Pressure : / mmHG Vent. Rate : 071 BPM Atrial Rate : 071 BPM P-R Int : 126 ms QRS Dur : 082 ms QT Int : 410 ms P-R-T Axes : 072 073 041 degrees QTc Int : 445 ms Normal sinus rhythm ST AND T wave abnormality, consider anterior ischemia Abnormal ECG Confirmed by SHAHZAD LONG MD ([id number]), senior editor AJ AYOUB ([id number]) on 09/15/2017 3:37:42 PM Referred By: DANO Confirmed By:SHAHZAD LONG MD 09/15/17 1537 Date Shahzad Long MD CC: Neptali Garcia MD; Joy Cohn MD Signed 12 LEAD ELECTROCARDIOGRAM Observed: 09/15/2017 Status: F Source: [facility] 3:38 PM [facility] Cardiovascular Services [address] [place] [address] 12 Lead EKG 09/14/17 0038 MR#: [id number] Acct: [id number] Name: LUIZA MAY Rep #: [id number] : 1955 61 From: Shahzad Long MD Attending Dr: Barb Rosenthal Status: ADM IN Ordering Dr: Neptali Garcia MD Date: 09/14/17 Location: ICU Sex: F C Admitted: 09/14/17 Test Reason : REPEAT Blood Pressure : / mmHG Vent. Rate : 063 BPM Atrial Rate : 063 BPM P-R Int : 116 ms QRS Dur : 072 ms QT Int : 458 ms P-R-T Axes : 087 070 051 degrees QTc Int : 468 ms Normal sinus rhythm T wave abnormality, consider anterior ischemia Prolonged QT Abnormal ECG Confirmed by SHAHZAD LONG MD ([id number]), senior editor AJ AYOUB ([id number]) on 09/15/2017 3:37:59 PM Referred By: DANO Confirmed By:SHAHZAD LONG MD 09/15/17 1538 Date Shahzad Long MD CC: Neptali Garcia MD; Joy Cohn MD Signed BEDSIDE GLUCOSE Collected: 09/15/2017 Status: F Source: [facility] 11:35 AM [facility] TYPE CODE TESTS RESULT OUT OF REFERENCE UNITS RANGE LAB L501.080 70-110 mg/dL High BEDSIDE GLU 170 Result Comment: MANAGEMENT OF PATIENT CARE PER NURSING PROTOCOL Performed By: #### L501.080 #### [facility] Point of Care [address] [place] [address] Observed: 09/15/2017 Status: F Source: [facility] CULTURE, URINE 9:40 AM [facility] Urine Culture ORGANISM 1: Escherichia coli [place] Count >100,000 Escherichia coli: REACTION Amoxacillin/Clavulanic Acid $ 4 S Ampicillin $ >=32 R Ampicillin/Sulbactam $ 16 I Cefazolin $ <=4 S Cefepime $ <=1 S Ceftriaxone $ <=1 S Ciprofloxacin $ <=0.25 S ESBL - Ertapenim $$$ <=0.5 S Gentamicin $ <=1 S Imipenem *NF <=0.25 S Levofloxacin $ <=0.12 S Nitrofurantoin $ <=16 S Piperacillin/Tazobactam $$ <=4 S Tobramycin $ <=1 S Trimethoprim/Sulfametho $ >=320 R (NF) indicates non-formulary drug at [facility]. Approval by Infectious Disease Specialist required before non-formulary drugs may be ordered and/or dispensed. Performed By: #### M100.0650 #### [facility] [address] [place], [address] CONSULTATION Observed: 09/15/2017 Status: F Source: [facility] 8:13 AM [facility] Medical Records Department [address] [place] [address] Consultation 09/14/17 0454 MR#: [id number] Acct: [id number] Name: LUIZA MAY Rep #: [id number] : 1955 61 From: Anurag Flannery DO PCP: Joy Cohn MD Status: ADM IN Y Location: ICU ICU03-1 Reason for Consult Date of Consultation: 09/14/17 Reason for Consultation: Respiratory failure History of Present Illness: The patient is a 61-year-old female, with a history as outlined below, who presented to the emergency department on September 14 with generalized malaise and increasing confusion over 1 week. The patient was seen in the emergency department on the evening of September 12 and was noted to be confused at that time. Workup at that time was negative. She was given supplemental IV fluid hydration with improvement in her symptoms. She was therefore discharged home. Patient has a history of a prior hemorrhagic stroke and alcoholism. She also has a presumptive history of COPD and ongoing tobacco use. Pulmonary function testing has never been completed previously. It does not appear that she is on any outpatient baseline inhalers. On presentation to the emergency department, the patient was noted to be afebrile, hypotensive and hypoxic on a nonrebreather. Initial laboratory evaluation revealed no evidence for leukocytosis. The patient did have macrocytic blood indices. INR is within normal limits. Initial arterial blood gas on 4 L/min revealed a pH of 7.05 with a PCO2 of 126 and PO2 of 135. Chemistry profile revealed an elevated potassium to 5.7, serum bicarbonate of 35 (which appears to be chronic), along with evidence of acute kidney injury with a creatinine 1.55. Troponin was negative. CT head revealed evidence of old infarcts in the right occipital and left parietal lobes. There was no evidence of acute infarction or intracranial hemorrhage. Plain film chest x-ray revealed no acute cardiopulmonary process with evidence of calcified bilateral hilar and mediastinal lymph nodes. Patient had a documented GCS of 10 on arrival. Given the depressed mental state noted on arrival along with elevated PCO2 on blood gas, the patient was electively intubated. She was provided supplemental IV fluids, aerosol treatments and steroids. She was subsequently transferred to the medical intensive care unit for ongoing management. Past Medical History Past Medical History (Chronic Problems): Chronic Problems Heart failure with reduced ejection fraction (Chronic) Alcoholism (Chronic) Allergies tetanus and diphtheria toxoids [tetanus AND diphtheria toxoids] Allergy (Verified 09/13/17 21:27) Hives Home Medications: Ambulatory Orders Medication Instructions Recorded Aspirin E.C. [Ecotrin] 81 mg PO DAILY 02/22/17 Atorvastatin Calcium 1 tab PO DAILY 02/22/17 Surgical History: cholecystectomy Psychiatric History: - - Insomnia [employer] History: No pertinent [employer] history Smoking Status: Former smoker - *Family History Maternal History Items: Cancer - Lung Paternal History Items: Cancer - Lung Sibling History Items: Cancer - lung Review of Systems Unable to obtain accurate/complete ROS d/t: Due to current intubation and mechanical ventilation status. Patient Problems: Active and Suspected Problems Acute respiratory failure (Acute) Objective: The patient's most recent lab work, culture data and imaging studies have all been personally reviewed. Blood cultures are pending. Surface echocardiogram completed in February 2017 revealed mild global LV systolic dysfunction with an ejection fraction of 45%. Pulmonary artery systolic pressure was estimated to be 36 mmHg. - Physical Exam General: No apparent distress, - - Currently intubated, sedated and mechanically ventilated HEENT: Atraumatic, PERRLA, Normocephalic Oral: No Gingival or Mucosal Lesions/ Ulcerations, - - Endotracheal and OG tubes in place Neck: Supple, No Nodes, Trachea Midline Lungs: - - Mechanical breath sounds. Clear across anterior lung smith without discernible wheezes, rales or rhonchi. Cardiovascular: Regular rate, Regular Rhythm, Normal S1, Normal S2, No murmurs, No rub noted, No Gallop Abdomen: Soft, Non Tender, Non-Distended, Hypoactive Bowel Sounds Extremities: No clubbing, No cyanosis, No edema Skin: No rashes, No breakdown, - - Tattoos present Musculoskeletal: No Muscle Wasting Lymphatic: No Cervical, Supraclavicular, or Inguinal Adenopathy Neurological: - - Currently sedated with a RASS of -3 Vital Signs Temp Pulse Resp BP Pulse Ox 99.2 F H 70 14 113/48 L 100 09/14/17 04:00 09/14/17 04:00 09/14/17 04:00 09/14/17 04:00 09/14/17 04:00 Oxygen Delivery Method Mechanical Ventilator Weight: 145 lb 11.609 oz Body Mass Index (BMI) 25.8 Laboratory Tests Past 24 Hrs WBC 10.7 RBC 4.89 Hgb 14.8 Hct 49.2 H MCV 100.6 H MCH 30.3 WBC RBC Hgb Hct MCV Clinical Impression(s) from Imaging Studies Brain CT 09/13/17 22:04 IMPRESSION: Regions of encephalomalacia consistent with old infarcts of the right occipital and left parietal lobes. These appear stable in the interval from the previous study. There is no evidence of acute infarct or intracranial hemorrhage. If acute infarct is clinically suspected, MRI may be helpful for further evaluation at this time. Electronically Signed: James Jj MD at 22:53 EDT , Service support , Chest X-Ray 09/13/17 22:25 IMPRESSION: Calcified bilateral hilar and right mediastinal nodes. No acute cardiopulmonary disease process is seen. Electronically Signed: James Jj MD at 22:55 EDT , Service support , Chest X-Ray 09/13/17 23:45 IMPRESSION: Degenerative changes, as described above. No demonstrated acute cardiopulmonary process. Endotracheal tube is seen its tip is 3.2 cm superior to the claude. An OG tube is seen its tip is below the diaphragm is in good position. Electronically Signed: Peter De Guzman MD at 0:35 EDT Tel , Service support , Chest X-Ray 09/14/17 02:26 IMPRESSION: The lines are in adequate position. COPD. Indistinct right diaphragmatic contour could be due to mild pleural thickening and/or effusion. Electronically Signed: Ayah Coffman MD at 4:13 EDT , Service support , Assessment/Plan Active and Suspected Problems Acute respiratory failure (Acute) RECOMMENDATIONS: 1. Continue scheduled aerosol treatments and steroids. 2. Wean FiO2 to maintain oxygen saturations 88-92% 3. Plan for daily. Spontaneous awakening and breathing trials. 4. In the absence of a fever, white count or infiltrate on chest imaging, will hold off on antibiotics. 5. Obtain full respiratory viral panel 6. Check TSH and ammonia levels, along with urine toxicology screen 7. Start tube feeds today 8. Maintain appropriate ICU prophylaxis with Pepcid and Lovenox IMPRESSIONS: 1. Acute on chronic respiratory failure/presumptive COPD of unknown severity The patient appears to have a baseline chronic CO2 retention, based upon the results of her last ABG. Her serum bicarbonate level has also been elevated since February 2017. The patient has a reported history of tobacco use with suppose it underlying COPD. However, PFTs have never been completed to confirm this assertion. She does not appear to be on any outpatient inhalers. Plain film chest imaging revealed no acute cardiopulmonary process. Therefore, no antibiotics are indicated at this time. The patient will remain on scheduled aerosol treatments and IV steroids. Plan for daily paired spontaneous awakening and breathing trials. Wean FiO2 to maintain oxygen saturations 88-92%. Obtain full respiratory viral panel. 2. Hypercarbic encephalopathy Improved with invasive mechanical ventilation. Anticipate improvement in mentation with normalization of the patient's acid-base disturbance. 3. Acute kidney injury Likely prerenal in etiology. Creatinine is improved following volume expansion. Urine output is appropriate. No indication for renal replacement therapy at this time. 4. Chronic Systolic heart failure/pulmonary hypertension Continue current medical management. Maintain euvolemic state. 5. Personal history of alcoholism/prior upper GI bleed Unclear if the patient is currently drinking or not. Will attempt to reach family to clarify this issue. Blood counts remain stable at this time. Continue appropriate GI prophylaxis. 6. Prior hemorrhagic stroke/coronary artery disease/hyperlipidemia/hypertension/tobacco dependence Complicates care, management, recovery and prognosis. Likely okay to continue home medications. We will plan to start tube feeds today. The patient will require eventual physical therapy evaluation. TIME: 50 minutes of critical care time, independent of procedures, was spent addressing the patient's acute on chronic respiratory failure, COPD of unknown severity, hypercarbic encephalopathy, congestive heart failure, pulmonary hypertension, review of all data and collaboration with the care team. ([id number]) Code Visit 9xxxx: [id number] Critical care first hour 09/15/17 0813 <Electronically signed by Anurag Flannery DO> Date Anurag Flannery DO Cosigner Signature (if applicable): Date CC: Anurag Flannery D.O.; Joy Cohn MD Signed CBC-COMPLETE BLOOD CNT Collected: 09/15/2017 Status: F Source: [facility] NO DIFF 4:30 AM [facility] TYPE CODE TESTS RESULT OUT OF RANGE REFERENCE UNITS LAB L100.1000 4.4-11.0 K/mm3 High WBC 16.8 LAB L100.1200 4.2-5.4 M/mm3 Normal RBC 4.44 LAB L100.1300 12.0-15.0 g/dl Normal HGB 13.4 LAB L100.1400 37-47 % Normal HCT 41.9 LAB L100.1500 81-99 fL Normal MCV 94.4 LAB L100.1600 27.0-32.0 pg Normal MCH 30.2 LAB L100.1700 32-36 g/gl Normal MCHC 32.0 LAB L100.1810 11.6-14.6 % High RDW CV 18.0 LAB L100.1820 35.1-43.9 fl High RDW SD 56.9 LAB L100.1900 150-450 K/mm3 Normal PLT 187 LAB L100.2000 6.2-12.0 fl Normal MPV 10.9 Performed By: #### L100.0500 #### [facility] [place], [address] COMPREHENSIVE METABOLIC Collected: 09/15/2017 Status: F Source: [facility] 4:30 AM [facility] TYPE CODE TESTS RESULT OUT OF RANGE REFERENCE UNITS LAB L501.0100 74-106 mg/dL High GLU 169 Result Comment: Fasting Glucose result greater than or equal to 126 mg/dL suggests DIABETES MELLITUS per A.D.A. criteria. Please note revised GLUCOSE reference range effective 2017. LAB L501.1000 7-18 mg/dL High BUN 31 LAB L501.1100 0.55-1.02 mg/dL Normal CREAT,SERUM 0.94 Result Comment: The validity of the calculated GFR AND GFRAA in patients over 70 years has not been determined. Clinical correlation is essential. LAB L501.1110 >60 mL/min Normal EST GFR 64 Result Comment: Non- GFR Calc LAB L501.1115 >60 mL/min Normal EST GFR - AA 78 Result Comment: GFR Calc LAB L501.1255 ml/min Normal Estimated CRCL 51.33 LAB L501.1300 10-20 RATIO High BUN/CRE 33.0 LAB L501.1500 6.4-8. g/dL Low 2 T PROT 6.0 LAB L501.1800 3.2-5. g/dL Low 0 ALB 2.7 LAB L501.1950 2.2-4. g/dL Normal 2 GLOB 3.3 LAB L501.2000 0.9-2. RATIO Low 4 A/G 0.8 LAB L501.2200 8.5-10 mg/dL Low .1 CA 8.1 LAB L501.4100 15-37 U/L Normal AST 31 LAB L501.4305 45-117 U/L Normal ALK P 57 LAB L501.4405 13-56 U/L Normal ALT 18 Result Comment: Please note revised ALT reference range effective 2017. LAB L501.4600 0.20-1.00 mg/dL Normal T BILI 0.50 LAB L501.5300 136-145 mmol/L Normal NA 144 LAB L501.5600 3.5-5.1 mmol/L Normal K 4.1 LAB L501.5900 98-107 mmol/L Normal CL 107 LAB L501.6100 21.0-32.0 mmol/L Normal CO2 30.0 LAB L501.6200 5-15 Normal GAP 7 Performed By: #### L500.4050, L500.4100, L501.2300, L501.5200 #### [facility] [address] [place], [place], [address] LIPID PROFILE Collected: 09/15/2017 Status: F Source: [facility] 4:30 AM [facility] TYPE CODE TESTS RESULT OUT OF RANGE REFERENCE UNITS LAB L501.4900 200 mg/dL Normal CHOL 91 Result Comment: <200 mg/dL Desirable 200-240 mg/dL Borderline >240 mg/dL High Risk LAB L501.5000 mg/dL Normal TRIG 79 Result Comment: The drugs N-Acetylcysteine and Metamizole may falsely depress this assay. Serum Triglycerides Reference Interval Normal <150 mg/dL Borderline high 150 - 199 mg/dL High 200 - 499 mg/dL Very High > or = 500 mg/dL LAB L501.6400 mg/dL Low HDL 34 Result Comment: The drugs N-Acetylcysteine and Metamizole may falsely depress this assay. Reference Range HDL <40 mg/dL Low HDL Cholesterol HDL >or= 60 mg/dL High HDL Cholesterol LAB L501.6500 0-130 mg/dL Normal LDL 41 LAB L501.6600 5-40 mg/dL Normal VLDL 16 Performed By: #### L500.4050, L500.4100, L501.2300, L501.5200 #### [facility] [address] [place], [place], [address] PHOSPHORUS Collected: 09/15/2017 Status: F Source: [facility] 4:30 AM [facility] TYPE CODE TESTS RESULT OUT OF RANGE REFERENCE UNITS LAB L501.2300 2.5-4.9 mg/dL Low PHOS 1.7 Performed By: #### L500.4050, L500.4100, L501.2300, L501.5200 #### [facility] [address] [place], [address] MAGNESIUM Collected: 09/15/2017 Status: F Source: [facility] 4:30 AM [facility] TYPE CODE TESTS RESULT OUT OF RANGE REFERENCE UNITS LAB L501.5200 1.6-2.6 mg/dL Normal MG 2.1 Result Comment: Please note revised Magnesium reference range effective 2017. Performed By: #### L500.4050, L500.4100, L501.2300, L501.5200 #### [facility] [address] [place], [address] HEMOGLOBIN A1C Collected: 09/15/2017 Status: F Source: [facility] 4:30 AM [facility] TYPE CODE TESTS RESULT OUT OF RANGE REFERENCE UNITS LAB L501.9985 4.2-6.3 % Normal HGB A1C 5.8 Performed By: #### L501.9985 #### [facility] [address] [place], [address] CHEST 1 VIEW Observed: 09/15/2017 Status: F Source: [facility] (PORTABLE) 12:01 AM [facility] Imaging Services [address] [place] [address] Chest 1 View (Portable) MR#: [id number] Acct: [id number] Name: LUIZA MAY Rep #: [id number] : 1955 F 61 From: Ayah Coffman MD PCP: Favio MENDES,Joy Status: ADM IN Study: Chest 1 View (Portable) Date of Exam: 09/15/17 Exam# [id number] Ordering Dr: Vipin Rosenthal DO STUDY: X-RAY CHEST REASON FOR EXAM: Female, 61 years old. Shortness of breath, intubated TECHNIQUE: Single AP portable view of the chest. COMPARISON: 09/14/2017. FINDINGS: Endotracheal tube tip 3 cm superior to the claude. The enteric tube courses inferior to the left diaphragm, its tip is not included or visualized. There are superimposed monitor leads. Minimal indistinct contour of the right diaphragm, mild right pleural effusion. There are areas of hyperinflation. Mild opacification right base. There is no demonstrated pleural abnormality. Normal size heart. Normal mediastinum and jacinto. Normal visualized pulmonary arteries. Normal visualized aortic arch and descending thoracic aorta. Normal visualized thoracic spine. Normal visualized ribs, clavicles, and shoulders. There is no demonstrated abnormality of the visualized soft tissue structures of the upper abdomen. RAD/Chest 1 View (Portable) IMPRESSION: Airspace disease right base and small right pleural effusion possible mild pneumonia on COPD. The lines are in adequate position. Electronically Signed: Ayah Coffman MD at 6:40 EDT , Service support , CC: Barb Rosenthal; Joy Cohn MD Central Sterile Technician: Signed TROPONIN-I Collected: 09/14/2017 Status: F Source: [facility] 11:55 PM [facility] Order Comment: 'TROP' Serial specimen #1, #2, #3, or #4: 4 TYPE CODE TESTS RESULT OUT OF RANGE REFERENCE UNITS LAB L501.4010 <0.06 ng/mL Normal 0.06 TROPONIN-I Result Comment: TROPONIN-I EXPECTED VALUES <0.05 NEGATIVE 0.06 - 0.59 AT RISK OF MT > OR = 0.60 SUGGEST MT Performed By: #### L501.4010 #### [facility] [address] [place], [address] CBC W/DIFF, AUTOMATED Collected: 09/14/2017 Status: F Source: [facility] 9:15 PM [facility] TYPE CODE TESTS RESULT OUT OF RANGE REFERENCE UNITS LAB L100.1000 4.4-11.0 K/mm3 High WBC 11.7 LAB L100.1200 4.2-5.4 M/mm3 Normal RBC 4.26 LAB L100.1300 12.0-15.0 g/dl Normal HGB 12.6 LAB L100.1400 37-47 % Normal HCT 40.6 LAB L100.1500 81-99 fL Normal MCV 95.3 LAB L100.1600 27.0-32.0 pg Normal MCH 29.6 LAB L100.1700 32-36 g/gl Low MCHC 31.0 LAB L100.1810 11.6-14.6 % High RDW CV 17.5 LAB L100.1820 35.1-43.9 fl High RDW SD 56.5 LAB L100.1900 150-450 K/mm3 Normal PLT 177 LAB L100.2000 6.2-12.0 fl Normal MPV 11.1 LAB L100.2100 47-70 % High NEUT% 86.2 LAB L100.2200 19-41 % Low LY% 5.7 LAB L100.2300 0-10 % Normal MONO% 7.7 LAB L100.2400 0-5 % Normal EO% 0.0 LAB L100.2500 0-1 % Normal BASO% 0.0 LAB L100.2550 0.0-0.9 % Normal IM GRAN % 0.400 Result Comment: IG% - Immature Granulocytes (promyelocytes, myelocytes and metamyelocytes) > 1% indicates that a LEFT SHIFT is Present. LAB L100.2620 2.0-7.7 X10 3/uL High Absolute Neut 10.1 LAB L100.2720 0.83-4.51 X10 3/ul Low Absolute Lymph 0.67 Performed By: #### L100.0100 #### [facility] [address] [facility] [place], [place], [id number] BASIC METABOLIC Collected: 09/14/2017 Status: F Source: [facility] PROFILE (BMP) 9:15 PM [facility] TYPE CODE TESTS RESULT OUT OF RANGE REFERENCE UNITS LAB L501.0100 74-106 mg/dL High GLU 168 Result Comment: Fasting Glucose result greater than or equal to 126 mg/dL suggests DIABETES MELLITUS per A.D.A. criteria. Please note revised GLUCOSE reference range effective 2017. LAB L501.1000 7-18 mg/dL High BUN 31 LAB L501.1100 0.55-1.02 mg/dL Normal CREAT,SERUM 0.92 Result Comment: The validity of the calculated GFR AND GFRAA in patients over 70 years has not been determined. Clinical correlation is essential. LAB L501.1110 >60 mL/min Normal EST GFR 66 Result Comment: Non- GFR Calc LAB L501.1115 >60 mL/min Normal EST GFR - AA 80 Result Comment: GFR Calc LAB L501.1255 ml/min Normal Estimated CRCL 52.45 LAB L501.1300 10-20 RATIO High BUN/CRE 33.8 LAB L501.2200 8.5-10 mg/dL Low .1 CA 7.8 LAB L501.5300 136-14 mmol/L Normal 5 NA 142 LAB L501.5600 3.5-5. mmol/L Normal 1 K 4.3 Result Comment: Moderate Hemolysis, Result may be falsely increased. LAB L501.5900 98-107 mmol/L Normal CL 106 LAB L501.6100 21.0-32.0 mmol/L Normal CO2 29.0 LAB L501.6200 5-15 Normal 7 GAP Performed By: #### L500.2500 #### [facility] [address] [place], [address] CHEST 1 VIEW Observed: 09/14/2017 Status: F Source: [facility] (PORTABLE) 8:27 PM [facility] Imaging Services [address] [place] [id number] Chest 1 View (Portable) MR#: [id number] Acct: [id number] Name: LUIZA MAY Rep #: [id number] : 1955 F 61 From: James Jj MD PCP: Joy Cohn MD Status: ADM IN Study: Chest 1 View (Portable) Date of Exam: 09/14/17 Exam# [id number] Ordering Dr: Vipin Rosenthal DO STUDY: X-RAY CHEST REASON FOR EXAM: Female, 61 years old. Possible aspiration, hypoxemia TECHNIQUE: Single AP portable view of the chest. COMPARISON: Prior study of earlier this date 3:58 AM FINDINGS: quality assurance monitor chassis leads are present. A nasogastric tube is present with the tip in the abdomen out of the [id number] of this study. There is an endotracheal tube with the tip 4.3 cm proximal to the claude. There is a patchy infiltrate of the right lower lobe. The left lung is clear. There is no demonstrated pleural abnormality. Normal size heart. Normal mediastinum and jacinto. Normal visualized pulmonary arteries. Normal visualized aortic arch and descending thoracic aorta. Normal visualized thoracic spine. Normal visualized ribs, clavicles, and shoulders. There is no demonstrated abnormality of the visualized soft tissue structures of the upper abdomen. RAD/Chest 1 View (Portable) IMPRESSION: There is an ill-defined patchy infiltrate of the right lung base which may represent pneumonic process or atelectasis. Nasogastric and endotracheal tubes appearing in adequate position. Electronically Signed: James Jj MD at 21:31 EDT , Service support , CC: Barb Rosenthal; Joy Cohn MD Central Sterile Technician: Signed BEDSIDE GLUCOSE Collected: 09/14/2017 Status: F Source: [facility] 6:09 PM [facility] TYPE CODE TESTS RESULT OUT OF REFERENCE UNITS RANGE LAB L501.080 70-110 mg/dL High BEDSIDE GLU 182 Result Comment: MANAGEMENT OF PATIENT CARE PER NURSING PROTOCOL Performed By: #### L501.080 #### [facility] Point of Care [address] [place], [place] [address] TROPONIN-I Collected: 09/14/2017 Status: F Source: [facility] 1:30 PM [facility] Order Comment: 'TROP' Serial specimen #1, #2, #3, or #4: 2 TYPE CODE TESTS RESULT OUT OF RANGE REFERENCE UNITS LAB L501.4010 <0.06 ng/mL High 0.09 TROPONIN-I Result Comment: TROPONIN-I EXPECTED VALUES <0.05 NEGATIVE 0.06 - 0.59 AT RISK OF MT > OR = 0.60 SUGGEST MT Performed By: #### L501.4010 #### [facility] [address] [facility] [place], [place], [address] Observed: 09/14/2017 Status: F Source: [facility] CULTURE, SPUTUM 11:05 AM [facility] Gram Stain Acceptable Specimen? Yes (<25 Epithelial cells per/lpf) Gram Stain 4+ Gram positive cocci 4+ Gram positive diplococci 4+ White Blood Cells No Epithelial cells Resp. Culture NO normal ailyn isolated. ORGANISM 1: Streptococcus pneumoniae Amount Growth 3+ Streptococcus pneumoniae: REACTION Cefotaxime (Other dx) $ 0.25 S Ceftriaxone (other dx) $ 0.5 S Clindamycin $$ <=0.25 S Erythromycin $ <=0.12 S Levofloxacin $ 0.5 S Moxifloxicin *NF 0.12 S Tetracycline NF <=0.25 S Trimethoprim/Sulfametho $ 160 R Vancomycin $ 0.5 S (NF) indicates non-formulary drug at [facility]. Approval by Infectious Disease Specialist required before non-formulary drugs may be ordered and/or dispensed. * CLSI guidelines does not recommend testing of cephalosporins. This interpretation is deduced from Beta-lactam/penicillin results. Performed By: #### M100.0800 #### [facility] [address] [facility] [place], [place], [address] ALCOHOL, BLOOD Collected: 09/14/2017 Status: F Source: [facility] (MEDICAL)-SERUM 10:30 AM [facility] TYPE CODE TESTS RESULT OUT OF RANGE REFERENCE UNITS LAB L501.9100 mg/dL Normal SERUM < 3.0 ETOH Result Comment: The serum:whole blood ethanol ratio is approximately 1.14 and varies slightly with hematocrit. Medical Alcohol reference interval and critical value in non-tolerant individuals; 50 - 100 Impairment 100 Intoxication 100 - 250 Severe Poisoning 250 - 400 Deep/possible fatal coma Performed By: #### L501.9100 #### [facility] [address] [place], [address] URINE DRUG SCREEN Collected: 09/14/2017 Status: F Source: [facility] (VISTA) 8:35 AM [facility] TYPE CODE TESTS RESULT OUT OF RANGE REFERENCE UNITS LAB L505.0075 TO BE Normal CONFIRMED Result Comment: CONFIRMATORY TESTING FOR ALL POSITIVE URINE DRUG SCREEN RESULTS WILL ONLY BE SENT OUT UPON PHYSICIAN ORDER. VISTA Urine Drug Screen methods provide only preliminary analytical test results. A more specific alternate chemical method must be used in order to obtain a confirmed analytical result. Gas chromatography/mass spectrometery (GC/MS) is the preferred confirmatory method. Clinical consideration and professional judgement should be applied to any drug of abuse test result, particularly when preliminary positive results are used. URINE TCA TESTING MUST BE ORDERED SEPARATELY. USE TEST MNEMONIC: [facility] LAB L505.5005 VISTA UDS PH 7 Normal LAB L505.5015 <1000 ng/mL AMPHETAMINES Normal NEGATIVE LAB L505.5025 < 200 ng/mL BARBITIURATES Normal NEGATIVE LAB L505.5035 < 200 High ng/mL BENZODIAZIPINE POSITIVE LAB L505.5045 < 300 ng/mL COCAINE Normal NEGATIVE LAB L505.5055 < 500 ng/mL ECSTACY Normal NEGATIVE LAB L505.5065 < 300 ng/mL METHADONE Normal NEGATIVE LAB L505.5075 < 300 ng/mL OPIATES Normal NEGATIVE LAB L505.5085 < 25 ng/mL PCP Normal NEGATIVE LAB L505.5095 < 50 ng/mL THC Normal NEGATIVE Performed By: #### L505.5000 #### [facility] [address] [place], [place], [id number] URINE SODIUM Collected: 09/14/2017 Status: F Source: [facility] 8:35 AM [facility] TYPE CODE TESTS RESULT OUT OF RANGE REFERENCE UNITS LAB L501.5500 Not Establ. mmol/L Normal UR NA 41 Performed By: #### L501.5500 #### [facility] [address] [place], [place], [id number] CREATININE, URINE Collected: 09/14/2017 Status: F Source: [facility] (RANDOM) 8:35 AM [facility] TYPE CODE TESTS RESULT OUT OF RANGE REFERENCE UNITS LAB L501.1200 NO RANGE EST. mg/dL Normal UR CREAT 64.10 Performed By: #### L501.1200 #### [facility] [address] [place], [address] AMMONIA Collected: 09/14/2017 Status: F Source: [facility] 8:30 AM [facility] TYPE CODE TESTS RESULT OUT OF RANGE REFERENCE UNITS LAB L503.5510 11-32 umol/L Normal AMMONIA 29.0 Performed By: #### L503.5510 #### [facility] [place], [address] M R STAPH AUREUS Collected: 09/14/2017 Status: F Source: [facility] DNA BY PCR 8:30 AM [facility] TYPE CODE TESTS RESULT OUT OF RANGE REFERENCE UNITS LAB L8200.1100 Negative Normal MRSA Negative RESULT Performed By: #### L8200.1000 #### [facility] [place], [address] Observed: 09/14/2017 Status: F Source: [facility] RESPIRATORY PANEL 7:08 AM [facility] RP PANEL ADENOVIRUS Not Detected HUMAN METAPHNEUMO Not Detected INFLUENZA A Not Detected INFLUENZA A (SUBTYPE H1) Not Detected INFLUENZA A (SUBTYPE H3) Not Detected INFLUENZA B Not Detected PARAINFLUENZA 1 Not Detected PARAINFLUENZA 2 Not Detected PARAINFLUENZA 3 Not Detected PARAINFLUENZA 4 Not Detected RHINOVIRUS Not Detected RSV A Not Detected RSV B Not Detected NAAT METHOD Testing was performed using nucleic acid amplification Performed By: #### M100.638 #### [facility] [address] [place] [address], [address] CBC W/DIFF, AUTOMATED Collected: 09/14/2017 Status: F Source: [facility] 3:10 AM [facility] TYPE CODE TESTS RESULT OUT OF RANGE REFERENCE UNITS LAB L100.1000 4.4-11.0 K/mm3 Normal WBC 10.7 LAB L100.1200 4.2-5.4 M/mm3 Normal RBC 4.89 LAB L100.1300 12.0-15.0 g/dl Normal HGB 14.8 LAB L100.1400 37-47 % High HCT 49.2 LAB L100.1500 81-99 fL High MCV 100.6 LAB L100.1600 27.0-32.0 pg Normal MCH 30.3 LAB L100.1700 32-36 g/gl Low MCHC 30.1 LAB L100.1810 11.6-14.6 % High RDW CV 16.9 LAB L100.1820 35.1-43.9 fl High RDW SD 59.7 LAB L100.1900 150-450 K/mm3 Normal PLT 167 LAB L100.2000 6.2-12.0 fl Normal MPV 10.9 LAB L100.2100 47-70 % High NEUT% 82.2 LAB L100.2200 19-41 % Low LY% 10.9 LAB L100.2300 0-10 % Normal MONO% 4.9 LAB L100.2400 0-5 % Normal EO% 0.3 LAB L100.2500 0-1 % Normal BASO% 0.3 LAB L100.2550 0.0-0.9 % High IM GRAN % 1.400 Result Comment: IG% - Immature Granulocytes (promyelocytes, myelocytes and metamyelocytes) > 1% indicates that a LEFT SHIFT is Present. LAB L100.2620 2.0-7.7 X10 3/uL High Absolute Neut 8.8 LAB L100.2720 0.83-4.51 X10 3/ul Normal Absolute Lymph 1.16 Performed By: #### L100.0100, L100.4425 #### [facility] [address] [facility] [place], [place], [id number] NRBC PANEL Collected: 09/14/2017 Status: F Source: [facility] 3:10 AM [facility] TYPE CODE TESTS RESULT OUT OF RANGE REFERENCE UNITS LAB L100.4450 0-5 % Normal NRBC, FLAGGED 2.4 LAB L100.4455 0-5 10 3/uL Normal NRBC # 0.25 Performed By: #### L100.0100, L100.4425 #### [facility] [address] [place], [place], [id number] PROTHROMBIN TIME W/INR Collected: 09/14/2017 Status: F Source: [facility] 3:10 AM [facility] Order Comment: REDRAW. PREVIOUS SPECIMEN REJECTED DUE TO HEMOLYSIS/QNS. 09/13/17 [address]. TYPE CODE TESTS RESULT OUT OF RANGE REFERENCE UNITS LAB L300.4150 11.7-14.9 SECONDS Normal PROTIME 14.5 LAB L300.4200 Normal INR 1.1 Performed By: #### L300.3900 #### [facility] [address] [place], [address] COMPREHENSIVE METABOLIC Collected: 09/14/2017 Status: F Source: [facility] 3:10 AM [facility] TYPE CODE TESTS RESULT OUT OF RANGE REFERENCE UNITS LAB L501.0100 74-106 mg/dL Normal GLU 95 Result Comment: Please note revised GLUCOSE reference range effective 2017. LAB L501.1000 7-18 mg/dL High BUN 36 LAB L501.1100 0.55-1.02 mg/dL High CREAT,SERUM 1.35 Result Comment: The validity of the calculated GFR AND GFRAA in patients over 70 years has not been determined. Clinical correlation is essential. LAB L501.1110 >60 mL/min Low EST GFR 42 Result Comment: Non- GFR Calc LAB L501.1115 >60 mL/min Low EST GFR - AA 51 Result Comment: GFR Calc LAB L501.1255 ml/min Normal Estimated CRCL 35.74 LAB L501.1300 10-20 RATIO High BUN/CRE 26.7 LAB L501.1500 6.4-8. g/dL Normal 2 T PROT 6.5 LAB L501.1800 3.2-5. g/dL Normal 0 ALB 3.2 LAB L501.1950 2.2-4. g/dL Normal 2 GLOB 3.3 LAB L501.2000 0.9-2. RATIO Normal 4 A/G 1.0 LAB L501.2200 8.5-10 mg/dL Low .1 CA 8.2 LAB L501.4100 15-37 U/L Normal AST 29 LAB L501.4305 45-117 U/L Normal ALK P 69 LAB L501.4405 13-56 U/L Normal ALT 19 Result Comment: Please note revised ALT reference range effective 2017. LAB L501.4600 0.20-1.00 mg/dL High T BILI 1.10 LAB L501.5300 136-145 mmol/L Normal NA 143 LAB L501.5600 3.5-5.1 mmol/L High K 5.3 LAB L501.5900 98-107 mmol/L Normal CL 102 LAB L501.6100 21.0-32.0 mmol/L High CO2 33.0 LAB L501.6200 5-15 Normal GAP 8 Performed By: #### L500.4050 #### [facility] [address] [place], [address] THYROID STIM HORMONE Collected: 09/14/2017 Status: F Source: [facility] (TSH) 3:10 AM [facility] TYPE CODE TESTS RESULT OUT OF RANGE REFERENCE UNITS LAB L501.9520 0.358-3.74 uIU/mL Normal TSH 1.38 Performed By: #### L501.9520 #### [facility] [address] [place], [place], [address] BNP,B-TYPE NATRIURETIC Collected: 09/14/2017 Status: F Source: [facility] PEPTIDE 3:10 AM [facility] TYPE CODE TESTS RESULT OUT OF RANGE REFERENCE UNITS LAB L503.6620 0-100 pg/mL High B-TYPE 820.9 BHUMI PEP Performed By: #### L503.6620 #### [facility] [address] [place], [address] Observed: 09/14/2017 Status: F Source: [facility] CULTURE, BLOOD (WB) 3:10 AM [facility] BC No growth in 5 days. Performed By: #### M200.1000 #### [facility] [address] [place], [place], [address] Observed: 09/14/2017 Status: F Source: [facility] CULTURE, BLOOD (WB) 3:10 AM [facility] BC No growth in 5 days. Performed By: #### M200.1000 #### [facility] [address] [place], [address] CHEST 1 VIEW Observed: 09/14/2017 Status: F Source: [facility] (PORTABLE) 2:26 AM [facility] Imaging Services [address] [place] [address] Chest 1 View (Portable) MR#: [id number] Acct: [id number] Name: LUIZA MAY Rep #: [id number] : 1955 F 61 From: Ayah Coffman MD PCP: Joy Cohn MD Status: ADM IN Study: Chest 1 View (Portable) Date of Exam: 09/14/17 Exam# [id number] Ordering Dr: Jadon Fagan MD STUDY: X-RAY CHEST REASON FOR EXAM: Female, 61 years old. Reposition ET tube TECHNIQUE: Single AP portable view of the chest. COMPARISON: 09/13/2017 FINDINGS: The endotracheal tube tip is 3.4 cm superior to the claude. The enteric tube courses inferior to the left diaphragm, its tip is not included or visualized. There are superimposed monitor leads. There is hyperinflation of the lungs consistent with chronic obstructive lung disease (COPD). There is indistinct right diaphragmatic contour, not significantly changed. There is no demonstrated pleural abnormality. Normal size heart. Normal mediastinum and jacinto. Normal visualized pulmonary arteries. Normal visualized aortic arch and descending thoracic aorta. Normal visualized thoracic spine. Normal visualized ribs, clavicles, and shoulders. There is no demonstrated abnormality of the visualized soft tissue structures of the upper abdomen. RAD/Chest 1 View (Portable) IMPRESSION: The lines are in adequate position. COPD. Indistinct right diaphragmatic contour could be due to mild pleural thickening and/or effusion. Electronically Signed: Ayah Coffman MD at 4:13 EDT , Service support , CC: Joy Cohn MD; Jadon Fagan MD Central Sterile Technician: Signed BLOOD GASES BY CPS Collected: 09/14/2017 Status: F Source: [facility] 1:08 AM [facility] TYPE CODE TESTS RESULT OUT OF RANGE REFERENCE UNITS LAB L9000.9990 Normal BLD GAS TYPE ART LAB L9001.1000 Normal SITE R Radial LAB L9001.1048 Normal Mode A-C LAB L9001.1050 O2 Normal Delivery Dev Vent LAB L9001.1065 Vt Normal 450 LAB L9001.1070 RR Normal 14 LAB L9001.1074 Normal FI02 50 LAB L9001.1076 Normal PEEP 5 LAB L9001.1104 Normal Results To ED LAB L9001.1105 Normal Time Given 107 LAB L9001.1110 7.35-7.45 pH Normal - I-STAT 7.40 LAB L9001.1210 35-45 mmHg High pCO2 - ISTAT 50.6 LAB L9001.1310 75-100 mmHG High PO2 I-STAT 106 LAB L9001.2300 22-26 mmol/L High HCO3 ISTAT 31.2 LAB L9001.2400 -2 to +2 mmol/L High BE ISTAT 6 LAB L9001.2415 mmol/L Normal TOTAL CO2 33 ISTAT LAB L9001.2425 95-99 % Normal SO2 ISTAT 98 Performed By: #### L9000.0800 #### [facility] Point of Care [address] [place] [address] HISTORY AND PHYSICAL Observed: 09/14/2017 Status: F Source: [facility] EXAM 12:49 AM [facility] Medical Records Department [address] [place] [address] History and Physical 09/14/17 0039 MR#: [id number] Acct: [id number] Name: LUIZA MAY Rep #: [id number] : 1955 61 From: Jadon Fagan MD PCP: Favio MENDES,Joy Status: REG ER Y Location: ED Problem List (1) Acute respiratory failure Status: Acute Qualifiers: Respiratory failure complication: hypercapnia Qualified Code(s): J96.02 - Acute respiratory failure with hypercapnia (2) Hemorrhagic cerebrovascular accident (CVA) Status: Resolved (3) Heart failure with reduced ejection fraction Status: Chronic (4) Metabolic encephalopathy Status: Acute (5) Elevated serum creatinine Status: Acute (6) COPD (chronic obstructive pulmonary disease) Status: Acute Qualifiers: COPD type: COPD with acute exacerbation Qualified Code(s): J44.1 - Chronic obstructive pulmonary disease with (acute) exacerbation (7) Alcoholism Status: Chronic History of Present Illness Date of Admission: 09/14/17 Chief Complaint: acute respiratory failure The patient is a 61 year old female who presents to the ER in a confused state. The patient has a recent history of hemorrhagic stroke in 02/2017 and a NSTEMI at that time. She has a known history of alcoholism and poor self care. She was seen in the ER yesterday and was discharged having been diagnosed with renal insufficiency. Today she was weak and more confused according to family members. Her ABG shows a pH of 7.05 and CO2 of 126. EKG shows new T-wave inversions. She was intubated and sedated. She appeared to have improved color after her second liter of IV fluid. She will be admitted to the ICU for advanced care. Past Medical History Past Medical History (Chronic Problems): Chronic Problems Heart failure with reduced ejection fraction (Chronic) Alcoholism (Chronic) Allergies tetanus and diphtheria toxoids [tetanus AND diphtheria toxoids] Allergy (Verified 09/13/17 21:27) Hives Home Medications: Ambulatory Orders Medication Instructions Recorded Aspirin E.C. 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 Denies: Cough, Sputum production Gastrointestinal: Denies: Abdominal Pain, Nausea, Vomiting Genitourinary: Denies: Dysuria Musculoskeletal: Denies: Joint Pain, Joint Tenderness Skin: Denies: Rash, Wounds Neurological: Denies: Numbness, Tingling, Focal weakness Psychiatric: Denies: Anxiety, Depression, Homicidal Ideations, Suicidal Ideations Hematologic/ Lymphatic: Denies: Easy Bruising, Easy Bleeding Unable to obtain accurate/complete ROS d/t: poor historian due to confusion and now intubated VTE Information - Inpt Only VTE Present on Admission: No VTE Mechan Device Prophylaxis: None VTE Pharm Prophylaxis ordered?: Yes Patient Problems: Active and Suspected Problems Acute respiratory failure (Acute) - Physical Exam General: - - intubated HEENT: Atraumatic, Normocephalic Neck: Supple Lungs: No rhonchi, No wheeze, No rales, Diminished Cardiovascular: Regular rate, Regular Rhythm, Normal S1, Normal S2, No murmurs Abdomen: Bowel Sounds Present, Soft Extremities: No edema Skin: No rashes, No breakdown Neurological: - - under sedation protocol Vital Signs Temp Pulse Resp BP Pulse Ox 97.4 F L 61 15 114/72 100 09/14/17 00:05 09/14/17 00:31 09/14/17 00:31 09/14/17 00:31 09/14/17 00:31 Oxygen Flow Rate (L/min) 2 Oxygen Delivery Method Mechanical Ventilator Weight: 154 lb 5.177 oz Body Mass Index (BMI) 27.3 Finger Stick Blood Glucose 105 Laboratory Tests Past 24 Hrs WBC 10.6 RBC 4.68 Hgb 13.9 Hct 47.9 H MCV 102.4 H MCH 29.7 MCHC 29.0 L RDW 17.4 H RDW Differential 62.1 H POC Glucose POC Glucose 105 Assessment/Plan Active and Suspected Problems Acute respiratory failure (Acute) Chronic conditions - history of alcoholism - COPD - CVA - CAD hx of NSTEMI - poor self care Plan - admit to ICU - Consult Dr Flannery for ICU management - continue propofol sedation - ABG, CBC, CMP in am - add thiamine and folate - LMWH for DVT prophylaxis - solumedrol IV 40mg iv q 8 - levaquin 500mg IV q day - cycle cardiac enzymes - repeat EKG in am Code Visit Inpatient E AND M: [id number] Init Hosp L3 09/14/17 0049 <Electronically signed by Jadon Fagan MD> Date Jadon Fagan MD Cosigner Signature: Date (if applicable) CC: Joy Cohn MD; Jadon Fagan MD Signed EMERGENCY DEPARTMENT Observed: 09/14/2017 Status: F Source: [facility] SUMMARY 12:46 AM [facility] [place] Medical Records Department [address] [place] [address] Emergency Department Summary 09/14/17 0036 MR#: [id number] Acct: [id number] Name: LUIZA MAY Rep #: [id number] : 1955 61 From: Neptali Garcia MD PCP: Joy Cohn MD Status: REG ER - ER Visit Summary Date of Service: 09/14/17 Chief Complaint: Confusion History of Present Illness: The patient is a 61 F who presents with confusion. Does have a significant past medical history of stroke, [place] family states she has been increasingly confused and sick for the past week. She has had increased fatigue and generalized weakness. She has just not been feeling well. She has become increasingly confused. She was seen in the emergency department last night. She was noted to have an acute kidney injury with elevated creatinine was treated with IV fluids and discharged home. Daughter states that she was much more confused today. Has had some cough and diarrhea but family states she has not been complaining of chest pain shortness of breath fevers or vomiting. Physical Examination: Initial blood pressure 88/45 heart rate 71 respiratory rate of 20 pulse ox 100% on nonrebreather GCS is 10 eyes 3, verbal 3, motor 4 she has mumbling and inappropriate words is a able to provide any history or answer questions but does not appear to have focal or lateralizing neurological deficits Heart is regular rate and rhythm Lungs are clear Abdomen soft Extremities nontender Test Results: EKG shows normal sinus rhythm at a rate of 71 with T-wave inversions in V1 through V4 which are new from prior. CBC unremarkable. Hepatic function unremarkable. Troponin negative. Lactic acid negative. Chemistries notable for potassium of 5.6 although this is moderately hemolyzed. BUN of 39 with a creatinine of 1.55. Chest x-ray shows no acute process. CT of the head shows old infarcts in the right occipital and left parietal lobes no acute process. ABG shows pH 7.05 with a PCO2 of 126 PO2 of 135. Emergency Department Course and Treatment: She was treated with IV fluids. On return of her ABG the decision was made in event. I spoke to family who agreed. Patient underwent rapid sequence intubation using etomidate and succinylcholine and a 7-1/2 endotracheal tube was easily passed. There were good breath sounds bilaterally and change in CO2 detector. Postintubation chest x-ray shows appropriate placement of endotracheal tube and orogastric tube. Patient did become agitated on the ventilator and was given Versed for sedation and then started on propofol infusion. After intubation her blood pressure improved and she was stable above 110 systolic. After being bolused with propofol she was transiently hypotensive. She does appear to be perfusing better with brisk capillary refill. In review of record she does have a history of COPD. After intubation she was also noted to have decreased air exchange and was given albuterol and Atrovent aerosols and IV Solu-Medrol. Given normal urine yesterday normal chest x-ray lack of tachycardia leukocytosis or lactic acidosis I do not believe this is related to any infectious process. I believe this is related to her COPD with severe hypercapnia. She was discussed with Dr. Flannery the diesel service apprentice on-call as well as the hospitalist will be admitted to the ICU. Repeat EKG shows persistent T-wave inversions in V1 and V2 with biphasic T waves in V3 and V4. Treatment Plan: [] Disposition: Admit Impression: Acute kidney injury Acute hypercapnic respiratory failure EKG changes This note was generated with MediWound dictation software. It may contain incorrect words, spelling, and punctuation that were not noted in review of the chart prior to signing ED Disposition - Plan for ED Patient: Chief Complaint: Confusion Referrals: Joy Cohn MD [Primary Care Provider] - What to do if you have Problems For any increased pain, shortness of breath, bleeding, nausea or vomiting, chest pain, or any unexpected problems, contact your Primary Care Provider. Call [facility] ([phone]) or report to the closest Emergency Room. Call 911 if necessary. 09/14/17 0046 <Electronically signed by Neptali Garcia MD> Date Neptali Garcia MD Cosigner Signature (If Indicated): Date CC: Joy Cohn MD CHEST 1 VIEW Observed: 09/13/2017 Status: F Source: [facility] (PORTABLE) 11:40 PM [facility] [place] Imaging Services [address] [place] [address] Chest 1 View (Portable) MR#: [id number] Acct: [id number] Name: LUIZA MAY Rep #: [id number] : 1955 F 61 From: Peter De Guzman MD PCP: Joy Cohn MD Status: REG ER Study: Chest 1 View (Portable) Date of Exam: 09/13/17 Exam# [id number] Ordering Dr: Neptali Garcia MD STUDY: X-RAY CHEST REASON FOR EXAM: Female, 61 years old. ETT PLACEMENT, OG TUBE TECHNIQUE: Single AP portable view of the chest. COMPARISON: None. FINDINGS: Endotracheal tube is seen its tip is 3.2 cm superior to the claude. An OG tube is seen its tip is below the diaphragm is in good position. The lungs are clear and expanded. There is no demonstrated pleural abnormality. Normal size heart. Normal mediastinum and jacinto. Normal visualized pulmonary arteries. Normal visualized aortic arch and descending thoracic aorta. Normal visualized thoracic spine. There is degenerative osteoarthritis of the bilateral shoulders. There is no demonstrated abnormality of the visualized soft tissue structures of the upper abdomen. RAD/Chest 1 View (Portable) IMPRESSION: Degenerative changes, as described above. No demonstrated acute cardiopulmonary process. Endotracheal tube is seen its tip is 3.2 cm superior to the claude. An OG tube is seen its tip is below the diaphragm is in good position. Electronically Signed: Peter De Guzman MD at 0:35 EDT Tel , Service support , CC: Neptali Garcia MD; Joy Cohn MD Central Sterile Technician: Signed LACTIC ACID Collected: 09/13/2017 Status: F Source: [facility] 11:23 PM [facility] TYPE CODE TESTS RESULT OUT OF RANGE REFERENCE UNITS LAB L503.6005 0.4-2.0 mmol/L Normal LACTIC ACID 0.7 Performed By: #### L503.6005 #### [facility] [address] [place], [address] BLOOD GASES BY CPS Collected: 09/13/2017 Status: F Source: [facility] 11:13 PM [facility] TYPE CODE TESTS RESULT OUT OF RANGE REFERENCE UNITS LAB L9000.9990 Normal BLD GAS TYPE ART LAB L9001.1000 Normal SITE R Radial LAB L9001.1010 Normal SHAW TEST NA LAB L9001.1050 O2 Normal Delivery Dev Nasal Can LAB L9001.1055 /min Normal LPM 4.0 LAB L9001.1104 Normal Results To ED MD LAB L9001.1105 Normal Time Given 2312 LAB L9001.1110 7.35-7.45 Low pH alert - I-STAT 7.05 LAB L9001.1210 35-45 mmHg High alert pCO2 - ISTAT 126.1 LAB L9001.1310 75-100 mmHG High PO2 I-STAT 135 LAB L9001.2300 22-26 mmol/L High HCO3 ISTAT 35.2 LAB L9001.2400 -2 to +2 mmol/L High BE ISTAT 5 LAB L9001.2415 mmol/L Normal TOTAL CO2 39 ISTAT LAB L9001.2425 95-99 % Normal SO2 ISTAT 97 Performed By: #### L9000.0800 #### [facility] Point of Care [address] [place], [place] [address] BRAIN/HEAD WITHOUT Observed: 09/13/2017 Status: F Source: [facility] CONTRAST 10:08 PM [facility] Imaging Services [address] [place] [address] Brain/Head without Contrast MR#: [id number] Acct: [id number] Name: LUIZA MAY Rep #: [id number] : 1955 F 61 From: James Jj MD PCP: Joy Cohn MD Status: PRE ER Study: Brain/Head without Contrast Date of Exam: 09/13/17 Exam# [id number] Ordering Dr: Neptali Garcia MD STUDY: CT BRAIN WITHOUT CONTRAST REASON FOR EXAM: Female, 61 years old. Altered mental status, confusion, and lethargy RADIATION DOSAGE (If Supplied By Facility): CTDIvol = ( 44.99 ) mGy, DLP = ( 782.05 ) mGycm TECHNIQUE: Transaxial CT imaging of the brain was performed without administration of intravenous contrast material. Individualized dose optimization techniques were used for this CT. COMPARISON: Previous study of 09/12/2017 FINDINGS: Normal soft tissue structures. Normal calvarium. Normal size ventricles and extra-axial spaces for the patient's age. Normal white matter tracts of the cerebral hemispheres. There are again demonstrated regions of encephalomalacia of the right occipital and left parietal lobes, unchanged in the interval. These are consistent with old infarcts. Normal basal ganglia and thalami. Normal brainstem. Normal cerebellum. There is no intracranial hemorrhage. There are no findings of an acute ischemic infarction. Normal visualized paranasal sinuses. CT/Brain/Head without Contrast IMPRESSION: Regions of encephalomalacia consistent with old infarcts of the right occipital and left parietal lobes. These appear stable in the interval from the previous study. There is no evidence of acute infarct or intracranial hemorrhage. If acute infarct is clinically suspected, MRI may be helpful for further evaluation at this time. Electronically Signed: James Jj MD at 22:53 EDT , Service support , CC: Neptali Garcia MD; Joy Cohn MD Central Sterile Technician: Signed CHEST 1 VIEW Observed: 09/13/2017 Status: F Source: [facility] (PORTABLE) 10:08 PM [facility] REPOSIT[facility] Imaging [place] [place] [address] Chest 1 View (Portable) MR#: [id number] Acct: [id number] Name: LUIZA MAY Rep #: [id number] : 1955 F 61 From: James Jj MD PCP: Joy Cohn MD Status: PRE ER Study: Chest 1 View (Portable) Date of Exam: 09/13/17 Exam# [id number] Ordering Dr: Neptali Garcia MD STUDY: X-RAY CHEST REASON FOR EXAM: Female, 61 years old. Increased confusion TECHNIQUE: Single AP portable view of the chest. COMPARISON: Previous study of 09/12/2017 FINDINGS: quality assurance monitor chassis leads are present. The lungs are clear and expanded. There is no demonstrated pleural abnormality. Normal size heart. There are bilateral calcified hilar nodes and calcified right mediastinal nodes. Normal visualized pulmonary arteries. Normal visualized aortic arch and descending thoracic aorta. Normal visualized thoracic spine. Normal visualized ribs, clavicles, and shoulders. There is no demonstrated abnormality of the visualized soft tissue structures of the upper abdomen. RAD/Chest 1 View (Portable) IMPRESSION: Calcified bilateral hilar and right mediastinal nodes. No acute cardiopulmonary disease process is seen. Electronically Signed: James Jj MD at 22:55 EDT , Service support , CC: Neptali Garcia MD; Joy Cohn MD Central Sterile Technician: Signed BEDSIDE GLUCOSE Collected: 09/13/2017 Status: F Source: [facility] 10:07 PM [facility] [place] TYPE CODE TESTS RESULT OUT OF RANGE REFERENCE UNITS LAB L501.080 70-110 mg/dL Normal BEDSIDE GLU 105 Result Comment: MANAGEMENT OF PATIENT CARE PER NURSING PROTOCOL Performed By: #### L501.080 #### [facility] Point [place] [place] [id number] CBC W/DIFF, AUTOMATED Collected: 09/13/2017 Status: C Source: [facility] 9:56 PM [facility] [place] TYPE CODE TESTS RESULT OUT OF RANGE REFERENCE UNITS LAB L100.1000 4.4-11.0 K/mm3 Normal WBC 10.6 LAB L100.1200 4.2-5.4 M/mm3 Normal RBC 4.68 LAB L100.1300 12.0-15.0 g/dl Normal HGB 13.9 LAB L100.1400 37-47 % High HCT 47.9 LAB L100.1500 81-99 fL High MCV 102.4 LAB L100.1600 27.0-32.0 pg Normal MCH 29.7 LAB L100.1700 32-36 g/gl Low MCHC 29.0 LAB L100.1810 11.6-14.6 % High RDW CV 17.4 LAB L100.1820 35.1-43.9 fl High RDW SD 62.1 LAB L100.1900 150-450 K/mm3 Normal PLT 199 LAB L100.2000 6.2-12.0 fl Normal MPV 10.9 LAB L100.2620 2.0-7.7 X10 3/uL Normal Absolute Neut 7.3 Result Comment: AMENDED REPORT 09/13/172257 Absolute Neut previously reported as: 6.5 X10^3/uL LAB L100.2720 0.83-4.51 X10 3/ul Normal Absolute Lymph 2.86 Result Comment: AMENDED REPORT 09/13/172257 Absolute Lymph previously reported as: 2.05 X10^3/ul LAB L100.3100 MANUAL DIFF CELLS COUNTED Normal 100 LAB L100.3200 47-70 % SEGS 67 Normal LAB L100.3300 0-5 % BAND 2 Normal LAB L100.3800 19-41 % LYMPH 27 Normal LAB L100.3900 0-10 % MONOCYTE 3 Normal LAB L100.4000 0-5 % EOS 1 Normal LAB L100.4400 0-5 % NRBC,MANUAL CT 3 Normal LAB L100.5500 ADEQ PLT EST Normal ADEQUATE LAB L100.7300 ANISO 1+ Normal LAB L100.7500 POLYCHROMASIA 1+ Normal LAB L100.7800 MACROCYTE 1+ Normal LAB L100.9900 PATH REV Normal Reviewed Result Comment: Macrocytosis. NRBCs are noted. Clinical correlation necessary. Roberto Carlos Delarosa M.D. 09/15/17 AMENDED REPORT 09/15/17 1108 PATH REV previously reported as: Ivon mast Performed By: #### L100.0100 #### [facility] [address] [place], [address] COMPREHENSIVE METABOLIC Collected: 09/13/2017 Status: F Source: [facility] 9:56 PM [facility] Order Comment: 'TROP' Serial specimen #1, #2, #3, or #4: 1 TYPE CODE TESTS RESULT OUT OF RANGE REFERENCE UNITS LAB L501.0100 74-106 mg/dL Normal GLU 106 Result Comment: Fasting Glucose result from 100 to 125 mg/dL suggests IMPAIRED HOMEOSTASIS per A.D.A. criteria. Please note revised GLUCOSE reference range effective 2017. LAB L501.1000 7-18 mg/dL High BUN 39 LAB L501.1100 0.55-1.02 mg/dL High CREAT,SERUM 1.55 Result Comment: The validity of the calculated GFR AND GFRAA in patients over 70 years has not been determined. Clinical correlation is essential. LAB L501.1110 >60 mL/min Low EST GFR 36 Result Comment: Non- GFR Calc LAB L501.1115 >60 mL/min Low EST GFR - AA 43 Result Comment: GFR Calc LAB L501.1255 ml/min Normal Estimated CRCL 31.13 LAB L501.1300 10-20 RATIO High BUN/CRE 25.2 LAB L501.1500 6.4-8. g/dL Normal 2 T PROT 6.7 LAB L501.1800 3.2-5. g/dL Normal 0 ALB 3.2 LAB L501.1950 2.2-4. g/dL Normal 2 GLOB 3.5 LAB L501.2000 0.9-2. RATIO Normal 4 A/G 0.9 LAB L501.2200 8.5-10 mg/dL Low .1 CA 8.0 LAB L501.4100 15-37 U/L Normal AST 23 Result Comment: Moderate Hemolysis, Result may be falsely increased. LAB L501.4305 45-117 U/L Normal ALK P 74 LAB L501.4405 13-56 U/L Normal ALT 18 Result Comment: Please note revised ALT reference range effective 2017. LAB L501.4600 0.20-1.00 mg/dL Normal T BILI 0.50 LAB L501.5300 136-145 mmol/L Normal NA 138 LAB L501.5600 3.5-5.1 mmol/L High K 5.6 Result Comment: Moderate Hemolysis, Result may be falsely increased. LAB L501.5900 98-107 mmol/L Normal CL 101 LAB L501.6100 21.0-32.0 mmol/L High CO2 35.0 LAB L501.6200 5-15 Low 2 GAP Performed By: #### L500.4050, L501.4010 #### [facility] [address] [place], [place], [address] TROPONIN-I Collected: 09/13/2017 Status: F Source: [facility] 9:56 PM [facility] Order Comment: 'TROP' Serial specimen #1, #2, #3, or #4: 1 TYPE CODE TESTS RESULT OUT OF RANGE REFERENCE UNITS LAB L501.4010 <0.06 ng/mL Normal < 0.02 TROPONIN-I Result Comment: TROPONIN-I EXPECTED VALUES <0.05 NEGATIVE 0.06 - 0.59 AT RISK OF MT > OR = 0.60 SUGGEST MT Performed By: #### L500.4050, L501.4010 #### [facility] [address] [place], [place], [address] TRIGLYCERIDES Collected: 09/13/2017 Status: F Source: [facility] 9:56 PM [facility] TYPE CODE TESTS RESULT OUT OF RANGE REFERENCE UNITS LAB L501.5000 mg/dL Normal TRIG 147 Result Comment: The drugs N-Acetylcysteine and Metamizole may falsely depress this assay. Serum Triglycerides Reference Interval Normal <150 mg/dL Borderline high 150 - 199 mg/dL High 200 - 499 mg/dL Very High > or = 500 mg/dL Performed By: #### L501.5000, L501.5600 #### [facility] [address] [place], [address] POTASSIUM Collected: 09/13/2017 Status: F Source: [facility] 9:56 PM [facility] TYPE CODE TESTS RESULT OUT OF RANGE REFERENCE UNITS LAB L501.5600 3.5-5.1 mmol/L High K 5.7 Result Comment: Moderate Hemolysis, Result may be falsely increased. Performed By: #### L501.5000, L501.5600 #### [facility] [address] [place], [address] EMERGENCY DEPARTMENT Observed: 09/12/2017 Status: F Source: [facility] SUMMARY 8:08 PM [facility] Medical Records Department [address] [place] [address] Emergency Department Summary 09/12/17 1653 MR#: [id number] Acct: [id number] Name: LUIZA MAY Rep #: [id number] : 1955 61 From: Darrick Mccoy PCP: Favio MENDESJoy Status: REG ER - ER Visit Summary Date of Service: 09/12/17 Chief Complaint: Confusion History of Present Illness: The patient is a 61 F here with significant other who is additional informant for confusion over the past 3 days. Patient has been forgetful, stating that she would see people that are not there. He states her kids moved out 3 months ago with grandchild, she would state kids need to prep dinner for her. Patient had stroke, last time 2 years ago. Denies any speech changes or hemiparesis. There has been no weakness or falls. Denies any upper respiratory symptoms. Denies any urinary symptoms. No GI symptoms. Patient normally alert and oriented 3. Physical Examination: General: Alert and oriented to person and place, month was April, year was 2016. No acute distress. HEENT: Normocephalic, atraumatic. Moist mucosa membranes Neck: supple, nontender. Cardiovascular: Regular rate and rhythm, no murmurs Respiratory: Normal breath sounds, symmetric, no distress Abdomen: Soft, nontender, nondistended Extremities: Nontender, no edema, pulses intact 4 Neuro: no focal neurological deficits. NIH equal 1 for being off on the month. Test Results: EKG sinus rate of 94, no ST changes. T-wave inversions V1 to V3 in leads III. 3 BC 9.3. Hemoglobin 14.6. Potassium hemolyzed at 5.8. Creatinine 1.87. BUN 33. Liver enzymes normal. Urine negative. CT head with old infarcts right occipital, left parietal. Chest x-ray negative. Emergency Department Course and Treatment: Patient presents with confusion, however stable. Stroke history. She is moving all 4 extremities. NIH was a 1 due to being off on the month. Workup initiated. Abnormalities creatinine 1.87 which is new. BUN is 33. She was given IV fluids of 1 L. No infection the urine or chest x-ray. Stable CT of the head. EKG T-wave inversions. She has no chest pains. Potassium was hemolyzed. No palpitation symptoms. She was ambulated in the ED to the restroom with no difficulties. Her blood pressure normally runs low. Her map is 75. Denied being lightheaded symptoms. Significant other is with her states he can stay with her and monitor. She feels better after IV fluids. Discussed with patient continue oral hydration at home, follow with PCP for recheck of labs. Discussed other of any worsening symptoms to return to the ED for reevaluation. All questions were answered. Treatment Plan: [] Disposition: Discharge Impression: 1. Confusion stable 2. Renal insufficiency 3. Dehydration This note was generated with MediWound dictation software. It may contain incorrect words, spelling, and punctuation that were not noted in review of the chart prior to signing ED Disposition - Plan for ED Patient: Disposition: Home or Assisted Living Chief Complaint: Confusion Diagnosis: Confusion, Dehydration, Acute renal insufficiency Instructions: ED Confusion, ED Insufficiency Renal, ED Dehydration Referrals: Joy Cohn MD [Primary Care Provider] - 3-5 Days Additional Instructions: Creatinine 1.87. Continue oral hydration at home. Follow with PCP reevaluation with recheck labs. Return if any worsening symptoms. What to do if you have Problems For any increased pain, shortness of breath, bleeding, nausea or vomiting, chest pain, or any unexpected problems, contact your Primary Care Provider. Call [facility] ([phone]) or report to the closest Emergency Room. Call 911 if necessary. 09/12/172007 <Electronically signed by Darrick Mccoy> Date Darrick Mccoy Cosigner Signature (If Indicated): Date CC: Joy Cohn MD URINALYSIS, COMPLETE Collected: 09/12/2017 Status: F Source: [facility] 5:55 PM [facility] Order Comment: How was Urine Obtained? TESTING MANAGER TO SPECIFY TYPE CODE TESTS RESULT OUT OF RANGE REFERENCE UNITS LAB L400.3000 Yellow COLOR Normal Yellow LAB L400.3050 Clear Normal CLARITY Clear LAB L400.3200 Normal mg/dl Normal GLUCOSE, UR Normal LAB L400.3300 Negative mg/dL Normal BILIRUBIN URINE Negative LAB L400.3400 Negative mg/dl Normal KETONE UR Negative LAB L400.3465 1.002-1.030 Normal SP.GR. DIPSTX 1.025 LAB L400.3550 5.0 - 8.0 pH UR Normal 5.0 LAB L400.3600 Negative mg/dl High PROT 15 DIPSTX LAB L400.3700 Normal mg/dl Normal UROBILI Normal LAB L400.3750 Negative Normal NITRITE UR Negative LAB L400.3780 Negative /ul Normal OCCULT BLOOD-UR Negative LAB L400.3800 Negative /ul High LEUK 25 ESTERASE LAB L400.4050 0-5 /hpf WBC 0 Normal SEEN LAB L400.4100 0-5 /hpf 0 Normal RBC-UA SEEN LAB L400.4150 5-10 /hpf SQUAM 0 Normal EPI SEEN LAB L400.4300 None Seen /hpf 0 Normal BACTERIA SEEN LAB L400.4350 <or=2+ /hpf 0 Normal MUCUS, URINE SEEN LAB L400.4400 0-5 /lpf Normal HYALINE CAST 50-100 SEEN Performed By: #### L400.0001 #### [facility] [address] [place], [address] BEDSIDE GLUCOSE Collected: 09/12/2017 Status: F Source: [facility] 5:14 PM [facility] TYPE CODE TESTS RESULT OUT OF REFERENCE UNITS RANGE LAB L501.080 70-110 mg/dL High BEDSIDE GLU 127 Result Comment: MANAGEMENT OF PATIENT CARE PER NURSING PROTOCOL Performed By: #### L501.080 #### [facility] Point [place] [address] CBC W/DIFF, AUTOMATED Collected: 09/12/2017 Status: F Source: [facility] 4:55 PM [facility] TYPE CODE TESTS RESULT OUT OF RANGE REFERENCE UNITS LAB L100.1000 4.4-11.0 K/mm3 Normal WBC 9.3 LAB L100.1200 4.2-5.4 M/mm3 Normal RBC 4.90 LAB L100.1300 12.0-15.0 g/dl Normal HGB 14.6 LAB L100.1400 37-47 % High HCT 49.8 LAB L100.1500 81-99 fL High MCV 101.6 LAB L100.1600 27.0-32.0 pg Normal MCH 29.8 LAB L100.1700 32-36 g/gl Low MCHC 29.3 LAB L100.1810 11.6-14.6 % High RDW CV 16.9 LAB L100.1820 35.1-43.9 fl High RDW SD 59.5 LAB L100.1900 150-450 K/mm3 Normal PLT 224 LAB L100.2000 6.2-12.0 fl Normal MPV 11.2 LAB L100.2100 47-70 % High NEUT% 70.8 LAB L100.2200 19-41 % Low LY% 17.6 LAB L100.2300 0-10 % High MONO% 10.5 LAB L100.2400 0-5 % Normal EO% 0.4 LAB L100.2500 0-1 % Normal BASO% 0.3 LAB L100.2550 0.0-0.9 % Normal IM GRAN % 0.400 Result Comment: IG% - Immature Granulocytes (promyelocytes, myelocytes and metamyelocytes) > 1% indicates that a LEFT SHIFT is Present. LAB L100.2620 2.0-7.7 X10 3/uL Normal Absolute Neut 6.6 LAB L100.2720 0.83-4.51 X10 3/ul Normal Absolute Lymph 1.64 Performed By: #### L100.0100 #### [facility] [address] [place], [address] PROTHROMBIN TIME W/INR Collected: 09/12/2017 Status: F Source: [facility] 4:[place] [facility] [place] CODE TESTS RESULT OUT OF RANGE REFERENCE UNITS LAB L300.4150 11.7-14.9 SECONDS Normal PROTIME 13.8 LAB L300.4200 Normal INR 1.1 Performed By: #### L300.3900, L300.4310 #### [facility] [address] [place], [address] PARTIAL THROMBOPLAST Collected: 09/12/2017 Status: F Source: [facility] 4:55 PM [facility] [place] TYPE CODE TESTS RESULT OUT OF RANGE REFERENCE UNITS LAB L300.4310 24.1-36.2 Seconds Normal PTT 28.7 Performed By: #### L300.3900, L300.4310 #### [facility] [address] [place], [place], [address] COMPREHENSIVE METABOLIC Collected: 09/12/2017 Status: F Source: [facility] 4:55 PM [facility] [place] TYPE CODE TESTS RESULT OUT OF RANGE REFERENCE UNITS LAB L501.0100 74-106 mg/dL High GLU 136 Result Comment: Fasting Glucose result greater than or equal to 126 mg/dL suggests DIABETES MELLITUS per A.D.A. criteria. Please note revised GLUCOSE reference range effective 2017. LAB L501.1000 7-18 mg/dL High BUN 33 LAB L501.1100 0.55-1.02 mg/dL High CREAT,SERUM 1.87 Result Comment: The validity of the calculated GFR AND GFRAA in patients over 70 years has not been determined. Clinical correlation is essential. LAB L501.1110 >60 mL/min Low EST GFR 29 Result Comment: Non- GFR Calc LAB L501.1115 >60 mL/min Low EST GFR - AA 35 Result Comment: GFR Calc LAB L501.1255 ml/min Normal Estimated CRCL 25.80 LAB L501.1300 10-20 RATIO Normal BUN/CRE 17.6 LAB L501.1500 6.4-8. g/dL Normal 2 T PROT 7.7 LAB L501.1800 3.2-5. g/dL Normal 0 ALB 3.7 LAB L501.1950 2.2-4. g/dL Normal 2 GLOB 4.0 LAB L501.2000 0.9-2. RATIO Normal 4 A/G 0.9 LAB L501.2200 8.5-10 mg/dL Normal .1 CA 8.8 LAB L501.4100 15-37 U/L Normal AST 30 Result Comment: Moderate Hemolysis, Result may be falsely increased. LAB L501.4305 45-117 U/L Normal ALK P 73 LAB L501.4405 13-56 U/L Normal ALT 20 Result Comment: Please note revised ALT reference range effective 2017. LAB L501.4600 0.20-1.00 mg/dL Normal T BILI 0.70 LAB L501.5300 136-145 mmol/L Normal NA 138 LAB L501.5600 3.5-5.1 mmol/L High K 5.8 Result Comment: Moderate Hemolysis, Result may be falsely increased. LAB L501.5900 98-107 mmol/L Normal CL 99 LAB L501.6100 21.0-32.0 mmol/L High CO2 36.0 LAB L501.6200 5-15 Low GAP 3 Performed By: #### L500.4050 #### [facility] [address] [place], [address] CHEST PA AND LATERAL Observed: 09/12/2017 Status: F Source: [facility] 4:53 PM [facility] [facility] Imaging Services [address] [place] [address] Chest PA and Lateral MR#: [id number] Acct: [id number] Name: LUIZA MAY Rep #: [id number] : 1955 F 61 From: James Jj MD PCP: Joy Cohn MD Status: REG ER Study: Chest PA and Lateral Date of Exam: 09/12/17 Exam# [id number] Ordering Dr: Le, Darrick DO STUDY: X-RAY CHEST REASON FOR EXAM: Female, 61 years old. Confusion TECHNIQUE: PA and lateral views of the chest. COMPARISON: Previous study of February 07, 2017 FINDINGS: quality assurance monitor chassis leads are present. The lungs are clear and expanded. There is no demonstrated pleural abnormality. Normal size heart. Normal mediastinum and jacinto. Normal visualized pulmonary arteries. Normal visualized aortic arch and descending thoracic aorta. Normal visualized thoracic spine. Normal visualized ribs, clavicles, and shoulders. There is no demonstrated abnormality of the visualized soft tissue structures of the upper abdomen. RAD/Chest PA and Lateral IMPRESSION: Normal x-ray examination of the chest. No acute cardiopulmonary disease process is seen. Electronically Signed: James Jj MD at 17:46 EDT , Service support , CC: Joy oChn MD; Darrick Mckeon Central Sterile Technician: Signed BRAIN/HEAD WITHOUT Observed: 09/12/2017 Status: F Source: [facility] 4:53 PM [facility] [place] [facility] Imaging Services [address] [place] [address] Brain/Head without Contrast MR#: [id number] Acct: [id number] Name: LUIZA MAY Rep #: [id number] : 1955 F 61 From: James Jj MD PCP: Joy Cohn MD Status: REG ER Study: Brain/Head without Contrast Date of Exam: 09/12/17 Exam# [id number] Ordering Dr: Darrick Mckeon DO STUDY: CT BRAIN WITHOUT CONTRAST REASON FOR EXAM: Female, 61 years old. Confusion x2-3 days RADIATION DOSAGE (If Supplied By Facility): CTDIvol = ( 44.99 ) mGy, DLP = ( 779.24 ) mGycm TECHNIQUE: Transaxial CT imaging of the brain was performed without administration of intravenous contrast material. Individualized dose optimization techniques were used for this CT. COMPARISON: Prior study of February 05, 2017 FINDINGS: Normal soft tissue structures. Normal calvarium. Normal size ventricles and extra-axial spaces for the patient's age. Normal white matter tracts of the cerebral hemispheres. There are regions of encephalomalacia consistent with old infarcts of the right occipital and left parietal lobes, unchanged in distribution from the prior study. Normal basal ganglia and thalami. Normal brainstem. Normal cerebellum. There is no intracranial hemorrhage. There are no findings of an acute ischemic infarction. Normal visualized paranasal sinuses. 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 There is no intracranial hemorrhage or evidence of acute infarct. Electronically Signed: James Jj MD at 17:45 EDT , Service support , CC: Joy Cohn MD; Darrick Mckeon Central Sterile Technician: Signed BASIC METABOLIC PANL Collected: 08/19/2017 Status: F Source: [place] 10:30 AM [facility] REPOSITORY TYPE CODE TESTS RESULT OUT OF REFERENCE UNITS RANGE LAB GLU 74-99 mg/dL Glucose 88 Result Comment: The [place] [employer] (ADA) provides guidance for cutoff values for fasting glucose and random glucose. The ADA defines fasting as no caloric intake for at least 8 hours. Fas ting plasma glucose results between 100 to 125 mg/dL indicate increased risk for diabetes (prediabetes). Fasting plasma glucose results greater than or equal to 126 mg/dL meet the criteria for diagnosis of diabetes. In the absence of unequivocal hyperglycemia, results should be confirmed by repeat testing. In a patient with classic symptoms of hyperglycemia or hyperglycemic crisis, random plasma glucose results greater than or equal to 200 mg/dL meet the criteria for diagnosis of diabetes. Reference: Standards of Medical Care in Diabetes 2016, [place] [employer]. Diabetes Care. 2016.39(Suppl 1). LAB BUN 7-21 mg/dL BUN High 25 LAB CRET 0.58-0.96 mg/dL Creatinine 0.86 LAB NA 136-144 mmol/L Sodium 144 LAB K 3.7-5.1 mmol/L Potassium 5.1 LAB CL 97-105 mmol/L Chloride 99 LAB CO2 22-30 mmol/L CO2 High 39 LAB AGAP 9-18 mmol/L Low Anion Gap 6 LAB CA 8.5-10.2 mg/dL Calcium, Total 9.4 LAB GFRAA eGFR- Amer. >60 LAB GFRNAA . eGFR-All Other Races >60 Result Comment: eGFR (Estimated GFR) Units of measure: mL/min/1.73 meters squared eGFR is derived from the reexpressed MDRD Study equation using the following parameters: serum creatinine, age, gender and race. The creatinine assay has been calibrated to be traceable to IDMS. An eGFR <60 mL/min/1.73m2 for >3 months is consistent with chronic kidney disease. Refer to KDOQI guidelines for clinical interpretation. In patients with unstable renal function, e.g. those with acute kidney injury, the eGFR may not accurately reflect actual GFR. Performed By: #### BMP #### [facility] [address] [place] [address] PROGRESS Observed: 08/19/2017 Status: COMPLETED Source: [place] 9:50 AM [facility]AMP[facility] REPOSITORY O ID: [id number] Author: Dylon Mooney Service: (none) Author Type: Physician Type: Progress Notes Filed: 08/19/2017 5:29 PM Note Text: PERTINENT CARDIAC HISTORY CHF - biventricular, alcoholic RV cardiomyopathy - with thrombus, 2006 HTN HL Cardiomyopathy - EtOH, ?ischemic NSTEMI - during GI bleed PRES - Posterior Reversible Encephalopathy Syndrome DVT - 02/18 ADHERENCE TO GUIDELINES KATHLEEN-I or ARB for HF with prior LVEF<40 (NQF 0081) - met ASA or Plavix for ASHD (NQF 0067) - met Beta marilyn for ASHD with prior MT or prior LVEF<40 (NQF 0070) - met Beta marilyn for HF with prior LVEF<40 (NQF 0083) - met KATHLEEN-I or ARB for ASHD with DM or prior LVEF<40 (NQF 0066) - met Statin therapy for ASHD or FHL or DM - met BMI documented and plan if >25 (NQF 0421) - lifestyle recommendation form Tobacco use screening and referral (NQF 0028) - lifestyle recommendation form Recommendation for whole food, plant based diet - lifestyle recommendation form CLINICAL IMPRESSION/PLAN: Luiza May is doing well. Her cardiomyopathy is well compensated. There is no evidence of recent ischemic episodes. She will have lipid profile and basic profile. She confirmed that neurologic follow-up is planned. I will see her in 6 months or as needed. Echocardiogram will be done at that time. If there is increased chest pain or shortness of breath, she has been advised to contact me. Written and verbal health teaching given to patient, patient verbalizes understanding and agrees with treatment plan. This note was generated using [employer] voice recognition system, and there may be some incorrect words, spellings, and punctuation that were not noted in checking the note before saving. DIAGNOSIS FOR VISIT: CHF Hypertension HISTORY OF PRESENT ILLNESS Luiza May returns for follow-up of multiple cardiac issues, as noted above. She has had no shortness of breath. She's had no recent bleeding issues. She denies chest pain. She's had no orthopnea, edema, syncope, palpitations, TIAs, amaurosis or claudication. ALLERGIES: ALLERGIES ALLERGIES Allergen Reactions - Entex [Phenylephrin* Intolerance - Tetanus Vaccines An* Swelling - Tramadol Hives ? ?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 [address]Xja: Number: Repository [id number] (HP) Date:2018-04-13 07/22/2018 Secondary NOT GIVENUNK [place] Insurance:SELF PAY [facility] Number: Effective Repository Date:2018-07-18 07/20/2018 LUIZA Brown Primary LUIZA Brown [place] [id number] N Insurance:MEDICARE BECKLERDOB: Community [place], PART A [facility] [id number] City Regional [facility] [address]Vad: Number: Repository [id number] (HP) Date:2018-07-20 07/20/2018 Secondary NOT GIVENUNK [place] Insurance:SELF PAY [facility] Number: Effective Repository Date:2018-07-20 06/15/2018 LUIZA Brown Primary LUIZA Brown [place] [id number] N Insurance:MEDICARE BECKLERDOB: Community [place], PART A [facility] [id number] City Regional Health [facility] Corporation [address]Vyu: Number: Repository [id number] (HP) Date:2018-02-16 06/15/2018 Secondary NOT GIVENUNK [place] Insurance:SELF PAY [facility] Number: Effective Repository Date:2018-06-15 05/10/2018 LUIZA S Primary LUIZA S [place] [id number] N Insurance:MEDICARE BECKLERDOB: [facility] [id number] City Regional Health Care Corporation [address]Nec: Number: Repository [id number] () Date:2018-04-12 05/10/2018 Secondary NOT GIVENUNK [place] Insurance:SELF PAY [facility] Number: Effective Repository Date:2018-05-02 04/13/2018 LUIZA S Primary LUIZA S [place] [id number] N Insurance:MEDICARE BECKLERDOB: [facility] [place], PART A [facility] [id number] City Regional Health [facility] Corporation [address]Qrn: Number: Repository [id number] () Date:2018-04-13 04/13/2018 Secondary NOT GIVENUNK [place] Insurance:SELF PAY [facility] Number: Effective Repository Date:2018-04-13 04/13/2018 LUIZA S Primary LUIZA S [place] [id number] N Insurance:MEDICARE BECKLERDOB[facility] [place] [id number] City Regional Health Care Corporation [address]Czq: Number: Repository [id number] () Date:2018-01-12 04/13/2018 Secondary NOT GIVENUNK [place] Insurance:SELF PAY [facility] Number: Effective Repository Date:2018-04-13 04/12/2018 LUIZA S Primary LUIZA S [place] [id number] N Insurance:MEDICARE BECKLERDOB: [facility] [place], PART A [facility] [id number] City Regional Health Care Corporation [address]Xiw: Number: Repository [id number] () Date:2017-12-30 04/12/2018 Secondary NOT GIVENUNK [place] Insurance:SELF PAY [facility] Number: Effective Repository Date:2018-04-05 02/25/2018 LUIZA S Primary LUIZA S [facility] BECKLERDOB: Insurance:MEDICARE A BECKLERDOB: Health System N AND BPolicy Number: [id number] Repository [facility] [id number] [place] [address]Duh: Date: () 02/16/2018 LUIZA S Primary LUIZA S [place] [id number] N Insurance:MEDICARE BECKLERDOB: [facility] A [facility] [id number] City Regional [facility] [address]Jrb: Number: Repository [id number] () Date:2018-01-19 02/16/2018 Secondary NOT GIVENUNK [place] Insurance:SELF PAY [facility] Number: Effective Repository Date:2018-02-09 02/01/2018 LUIZA S Primary LUIZA S [place] [id number] N Insurance:MEDICARE BECKLERDOB: [facility] A [facility] [id number] City Regional [facility] [address]Hyx: Number: Repository [id number] () Date:2017-11-18 02/01/2018 Secondary LUIZA S [place] Insurance:MEDICAIDPol BECKLERDOB: [facility] Number: Effective [id number] Hospital Date:2017-11-18 Repository 02/01/2018 Tertiary NOT GIVENUNK [place] Insurance:SELF PAY [facility] Number: Effective Repository Date:2017-11-18 01/18/2018 LUIZA S Primary LUIZA S [place] [id number] N Insurance:MEDICARE BECKLERDOB: [facility], [facility] A [facility] [id number] City Regional Health Care Corporation [address]Kal: Number: Repository [id number] () Date:2018-01-17 01/18/2018 Secondary NOT GIVENUNK [place] Insurance:SELF PAY [facility] Number: Effective Repository Date:2018-01-17 01/12/2018 LUIZA S Primary LUIZA S [place] [id number] N Insurance:MEDICARE BECKLERDOB: [facility] A [facility] [id number] City [facility] [address]Nbw: Number: Repository [id number] (HP) Date:2017-11-17 01/12/2018 Secondary NOT GIVENUNK [place] Insurance:SELF PAY [facility] Number: Effective Repository Date:2017-12-22 12/30/2017 LUIZA Brown Primary LUIZA Brown Frde[place] [id number] N Insurance:MEDICARE BECKLERDOB: [facility], PART A [facility] [id number] City [facility] [address]Ypo: Number: Repository [id number] (HP) Date:2017-11-09 12/30/2017 Secondary NOT GIVENUNK [place] Insurance:SELF PAY [facility] Number: Effective Repository Date:2017-12-28 12/13/2017 LUIZA S Primary LUIZA Brown [place] [id number] N Insurance:MEDICARE BECKLERDOB: [facility] A [facility] [id number] City Regional Health Care Corporation [address]Cjl: Number: Repository [id number] (HP) Date:2017-11-18 12/13/2017 Secondary NOT GIVENUNK [place] Insurance:SELF PAY [facility] Number: Effective Repository Date:2017-12-13 12/08/2017 LUIZA S Primary LUIZA Brown [place] [id number] N Insurance:MEDICARE BECKLERDOB: [facility] [id number] City Regional Health [facility] Corporation [address]Tph: Number: Repository [id number] (HP) Date:2017-11-18 12/08/2017 Secondary NOT GIVENUNK [place] Insurance:SELF PAY [facility] Number: Effective Repository Date:2017-11-18 11/30/2017 LUIZA S Primary LUIZA S [place] [id number] N Insurance:MEDICARE BECKLERDOB: [facility] A [facility] [id number] City Regional Health Care Corporation [address]Gyf: Number: Repository [id number] (HP) Date:2017-11-18 11/30/2017 Secondary NOT GIVENUNK [place] Insurance:SELF PAY [facility] Number: Effective Repository Date:2017-11-18 11/30/2017 LUIZA S Primary LUIZA S [place] [id number] N Insurance:MEDICARE BECKLERDOB: [facility] [id number] City Regional [facility] Corporation [address]Dfb: Number: Repository [id number] () Date:2017-11-18 11/30/2017 Secondary NOT GIVENUNK [place] Insurance:SELF PAY [facility] Number: Effective Repository Date:2017-11-30 11/18/2017 LUIZA S Primary LUIZA S [place] [id number] N Insurance:MEDICARE BECKLERDOB: [facility] [place], PART A [facility] [id number] City Regional Health Care Corporation [address]Glb: Number: Repository [id number] () Date:2017-11-15 11/18/2017 Secondary NOT GIVENUNK [place] Insurance:SELF PAY [facility] Number: Effective Repository Date:2017-11-16 11/18/2017 LUIZA S Primary LUIZA S [place] [id number] N Insurance:MEDICARE BECKLERDOB: [facility] [place], PART A [facility] [id number] City Regional [facility] [address]Gnb: Number: Repository [id number] () Date:2017-11-18 11/18/2017 Secondary NOT GIVENUNK [place] Insurance:SELF PAY [facility] Number: Effective Repository Date:2017-11-18 11/17/2017 LUIZA S Primary LUIZA S [place] [id number] N Insurance:MEDICARE BECKLERDOB: [facility] A [facility] [id number] City Regional Health Care Corporation [address]Zzp: Number: Repository [id number] () Date:2017-10-18 11/17/2017 Secondary NOT GIVENUNK [place] Insurance:SELF PAY [facility] Number: Effective Repository Date:2017-11-17 10/25/2017 LUIZA S Primary LUIZA S [place] [id number] N Insurance:MEDICARE BECKLERDOB: [facility] A [facility] [id number] City Regional Health Care Corporation [address]Mvw: Number: Repository [id number] () Date:2017-10-25 10/25/2017 Secondary NOT GIVENUNK [place] Insurance:SELF PAY [facility] Number: Effective Repository Date:2017-10-25 10/20/2017 LUIZA S Primary LUIZA S [place] [id number] N Insurance:MEDICARE BECKLERDOB: [facility] [place], PART A [facility] [id number] City Regional Health Care Corporation [address]Spj: Number: Repository [id number] (HP) Date:2017-09-30 10/20/2017 Secondary NOT GIVENUNK [place] Insurance:SELF PAY [facility] Number: Effective Repository Date:2017-09-30 10/18/2017 LUIZA S Primary LUIZA S [place] [id number] N Insurance:MEDICARE BECKLERDOB: [facility] A [facility] [id number] City Regional Health [facility] Corporation [address]Dlt: Number: Repository [id number] (HP) Date:2017-09-30 10/18/2017 Secondary NOT GIVENUNK [place] Insurance:SELF PAY [facility] Number: Effective Repository Date:2017-10-18 10/12/2017 LUIZA S Primary LUIZA S [place] [id number] N Insurance:MEDICARE BECKLERDOB: [facility] [place]DW[place], PART A [facility] [id number] City Regional Health Care Corporation [address]Uys: Number: Repository [id number] () Date:2017-09-30 10/12/2017 Secondary NOT GIVENUNK [place] Insurance:SELF PAY [facility] Number: Effective Repository Date:2017-09-30 09/30/2017 LUIZA S Primary LUIZA S [place] [id number] N Insurance:MEDICARE BECKLERDOB: [facility] [id number] City Regional Health [facility] Corporation [address]Jbm: Number: Repository [id number] (HP) Date:2017-09-20 09/30/2017 Secondary NOT GIVENUNK [place] Insurance:SELF PAY [facility] Number: Effective Repository Date:2017-09-28 09/24/2017 Luiza Brown Primary Luiza Brown [place] [id number] N Insurance:MEDICARE BecklerDOB[facility] [id number] City Regional Health Care Corporation [address]Kqr: Number: Repository [id number] (HP) Date:2017-09-24 09/24/2017 Secondary NOT GIVENUNK [place] Insurance:SELF PAY [facility] Number: Effective Repository Date:2017-09-24 09/15/2017 LUIZA S Primary LUIZA Brown [place] [id number] N Insurance:MEDICARE BECKLERDOB: [facility] [id number] City Regional Health Care Corporation [address]Lcg: Number: Repository [id number] () Date:2017-09-13 09/15/2017 Secondary NOT GIVENUNK [place] Insurance:SELF PAY [facility] Number: Effective Repository Date:2017-09-15 09/14/2017 LUIZA S Primary LUIZA Brown [place] [id number] N Insurance:MEDICARE BECKLERDOB: [facility] [id number] City Regional Health Care Corporation [address]Fiq: Number: Repository [id number] (HP) Date:2017-09-13 09/14/2017 Secondary NOT GIVENUNK [place] Insurance:SELF PAY [facility] Number: Effective Repository Date:2017-09-14 09/14/2017 Luiza S Primary Luiza S [place] [id number] N Insurance:MEDICARE BecklerDOB[facility] [id number] City Regional Health [facility] Corporation [address]Noz: Number: Repository [id number] () Date:2017-09-13 09/14/2017 Secondary NOT GIVENUNK [place] Insurance:SELF PAY [facility] Number: Effective Repository Date:2017-09-13 09/14/2017 LUIZA S Primary LUIZA S [place] [id number] N Insurance:MEDICARE BECKLERDOB: [facility] [id number] City Regional Health [facility] Corporation [address]Nzn: Number: Repository [id number] () Date:2017-09-13 09/14/2017 Secondary NOT GIVENUNK [place] Insurance:SELF PAY [facility] Number: Effective Repository Date:2017-09-14 09/14/2017 LUIZA S Primary LUIZA S Freda [id number] N Insurance:MEDICARE BECKLERDOB[facility] [place], [place] A [facility] [id number] City Regional Health Care Corporation [id number]: Number: Repository [id number] (HP) Date:2017-09-13 09/14/2017 Secondary NOT GIVENUNK Freda Insurance:SELF PAY [facility] Number: Effective Repository Date:2017-09-14 09/14/2017 Luiza S Primary Luiza S Freda [id number] N Insurance:MEDICARE [place]DOB: [facility] [address] [address] [facility] [id number] City Regional Health Care Corporation [address]Mli: Number: Repository [id number] (HP) Date:2017-09-13 09/14/2017 Secondary NOT GIVENUNK [place] Insurance:SELF PAY [facility] Number: Effective Repository Date:2017-09-14 09/14/2017 LUIZA S Primary LUIZA S Freda [id number] N Insurance:MEDICARE BECKLERDOB[facility] [place] [place] [facility] [id number] City Regional Health Care Corporation [id number]: Number: Repository [id number] () Date:2017-09-13 09/14/2017 Secondary NOT GIVENUNK Freda Insurance:SELF PAY [facility] Number: Effective Repository Date:2017-09-14 09/14/2017 Luiza S Primary Luiza S [place] [id number] N Insurance:MEDICARE [place]lerDOB: [address] [place] [facility] [id number] City Regional Health Care Corporation [address]Hfg: Number: Repository [id number] () Date:2017-09-13 09/14/2017 Secondary NOT GIVENUNK Freda Insurance:SELF PAY [facility] Number: Effective Repository Date:2017-09-14 09/14/2017 LUIZA S Primary LUIZA S [place] [id number] N Insurance:MEDICARE BECKLERDOB: [facility] [place], PART A [facility] [id number] City Regional Health Care Corporation [address]Sqq: Number: Repository [id number] () Date:2017-09-13 09/14/2017 Secondary NOT GIVENUNK [place] Insurance:SELF PAY [facility] Number: Effective Repository Date:2017-09-14 09/14/2017 LUIZA S Primary LUIZA S [place] [id number] N Insurance:MEDICARE B[place]KLERDOB: [facility] [id number] City Regional Health Care Corporation [address]Yfi: Number: Repository [id number] () Date:2017-09-13 09/14/2017 Secondary NOT GIVENUNK Freda Insurance:SELF PAY [facility] Number: Effective Repository Date:2017-09-14 09/14/2017 LUIZA S Primary LUIZA S [place] [id number] N Insurance:MEDICARE BECKLERDOB: [facility] [id number] City Regional Health Care Corporation [address]Xmn: Number: Repository [id number] () Date:2017-09-13 09/14/2017 Secondary NOT GIVENUNK [place] Insurance:SELF PAY [facility] Number: Effective Repository Date:2017-09-14 09/14/2017 LUIZA S Primary LUIZA S Freda [id number] N Insurance:MEDICARE BECKLERDOB: [facility] [place] [facility] [id number] City Regional Health Care Corporation [address]Sbz: Number: Repository [id number] () Date:2017-09-13 09/14/2017 Secondary NOT GIVENUNK Freda Insurance:SELF PAY [facility] Number: Effective Repository Date:2017-09-14 09/12/2017 Luiza S Primary Luiza S [place] [id number] N Insurance:MEDICARE BecklerDOB: [facility] [place], [place] A [facility] [id number] City Regional Health Care Corporation [address]Orn: Number: Repository [id number] () Date:2017-09-12 09/12/2017 Secondary NOT GIVENUNK [place] Insurance:SELF PAY [facility] Number: Effective Repository Date:2017-09-12 08/19/2017 LUIZA S Primary LUIZA S [facility] BECKLERDOB: Insurance:MEDICARE A BECKLERDOB: [facility] [id number] N AND BPolicy Number: [id number] [facility] [id number] [id number]: Date: ()
== END 2018-07-20 16:15 | disposition home or self-care (01) ==
LOC: ED 15:46
PROVIDERS: Emergency Provider Emergency Medicine; Family Provider Internal Medicine; PCP Internal Medicine
DX: J02.9 Acute pharyngitis, unspecified (principal); H92.02 Otalgia, left ear; J44.9 Chronic obstructive pulmonary disease, unspecified; I10 Essential (primary) hypertension; G47.33 Obstructive sleep apnea (adult) (pediatric); E78.00 Pure hypercholesterolemia, unspecified; I25.2 Old myocardial infarction; Z86.73 Personal history of transient ischemic attack (TIA), and cerebral infarction without residual deficits; Z87.891 Personal history of nicotine dependence; Z86.718 Personal history of other venous thrombosis and embolism
CPT/HCPCS: 99283

== ENCOUNTER → 2018-07-22 14:30 | Outpatient (CLI) | payer MEDICARE, SELFPAY ==
[2018-07-22 13:12] VITALS: BMI 24.7
[2018-07-22 15:09] LABS: Anion Gap 5 (5-15); BUN 17 mg/dL (7-18); Calcium,Total 8.6 mg/dL (8.5-10.1); Chloride 102 mmol/L (98-107); Creatinine, Serum 0.81 mg/dL (0.55-1.02); EST Glomerular Filtration Rate 76 mL/min (>60); Est Glom Filt Rate - Afr Amer 92 mL/min (>60); Glucose 141 mg/dL (74-106); Magnesium 1.9 mg/dL (1.6-2.6); Potassium 4.1 mmol/L (3.5-5.1); Sodium Level 142 mmol/L (136-145)
--- OUTSIDE RECORDS SUMMARY | 2018-09-26 04:51 | XMS RPT_ITS ---
:1955 Author Organization OHIP Support Name Relationship Address Phone D Unavailable Unavailable Unavailable HARSHAD, DEX Unavailable [address] + [place] [address] D Unavailable Unavailable Unavailable HARSHAD, DEX Unavailable [address] + [place] [address] D Unavailable Unavailable Unavailable HARSHAD, DEX Unavailable [address] + [place] [address] D Unavailable Unavailable Unavailable HARSHAD, DEX Unavailable [address] + [place] [address] D Unavailable Unavailable Unavailable HARSHAD, DEX Unavailable [address] + [place] [address] D Unavailable Unavailable Unavailable HARSHAD, DEX Unavailable [address] + [place] [address] D Unavailable Unavailable Unavailable HARSHAD, DEX Unavailable [address] + [place] [address] D Unavailable Unavailable Unavailable HARSHAD, DEX Unavailable [address] + [place] [address] D Unavailable Unavailable Unavailable HARSHAD, DEX Unavailable [address] + [place] [address] D Unavailable Unavailable Unavailable HARSHAD, DEX Unavailable [address] + [place] [address] D Unavailable Unavailable Unavailable HARSHAD, DEX Unavailable [address] + [place] [address] D Unavailable Unavailable Unavailable HARSHAD, DEX Unavailable [address] + [place] [address] D Unavailable Unavailable Unavailable HARSHAD, DEX Unavailable [address] + [place] [address] D Unavailable Unavailable Unavailable HARSHAD, DEX Unavailable [address] + [place] [address] D Unavailable Unavailable Unavailable HARSHAD, DEX Unavailable [address] + [place] [address] D Unavailable Unavailable Unavailable HARSHAD, DEX Unavailable [address] + [place] [address] D Unavailable Unavailable Unavailable HARSHAD, DEX Unavailable [address] + [place] [address] D Unavailable Unavailable Unavailable HARSHAD, DEX Unavailable [address] + [place] [address] D Unavailable Unavailable Unavailable HARSHAD, DEX Unavailable [address] + [place] [address] D Unavailable Unavailable Unavailable HARSHAD, DEX Unavailable [address] + [place] [address] D Unavailable Unavailable Unavailable HARSHAD, DEX Unavailable [address] + [place] [address] D Unavailable Unavailable Unavailable HARSHAD, DEX Unavailable [address] + [place] [address] D Unavailable Unavailable Unavailable HARSHAD, DEX Unavailable [address] + [place] [address] D Unavailable Unavailable Unavailable HARSHAD, DEX Unavailable [address] + [place] [address] D Unavailable Unavailable Unavailable HARSHAD, DEX Unavailable [address] + [place] [address] D Unavailable Unavailable Unavailable HARSHAD, DEX Unavailable [address] + [place] [address] D Unavailable Unavailable Unavailable HARSHAD, DEX Unavailable [address] + [place] [address] D Unavailable Unavailable Unavailable HARSHAD, DEX Unavailable [address] + [place] [address] D Unavailable Unavailable Unavailable HARSHAD, DEX Unavailable [address] + [place] [address] D Unavailable Unavailable Unavailable HARSHAD, DEX Unavailable [address] + [place] [address] D Unavailable Unavailable Unavailable HARSHAD, DEX Unavailable [address] + [place] [address] D Unavailable Unavailable Unavailable HARSHAD DEX Unavailable [address] + [place] [address] D Unavailable Unavailable Unavailable HARSHAD DEX Unavailable [address] + [place] [address] D Unavailable Unavailable Unavailable HARSHAD DEX Unavailable [address] + [place] [address] D Unavailable Unavailable Unavailable HARSHAD DEX Unavailable [address] + [place] [address] D Unavailable Unavailable Unavailable HARSHAD DEX Unavailable [address] + [place] [address] D Unavailable Unavailable Unavailable HARSHAD DEX Unavailable [address] + [place] [address] D Unavailable Unavailable Unavailable HARSHAD DEX Unavailable [address] + [place] [address] D Unavailable Unavailable Unavailable HARSHAD DEX Unavailable [address] + [place] [address] Care Team Providers Name Role Severo Bae Attending Unavailable Oleghe, Efewongbe Referring Unavailable Oleghe, Efewongbe Primary Care Unavailable Patel Ragland Attending Unavailable Oleghe, Efewongbe Attending Unavailable Oleghe, Efewongbe Referring Unavailable Oleghe, Efewongbe Attending Unavailable Oleghe, Efewongbe Referring Unavailable Oleghe, Efewongbe Primary Care Unavailable [facility] Primary Care Unavailable Darrick Mckeon Attending Unavailable [facility] Primary Care Unavailable Jadon Fagan Admitting Unavailable Anurag Flannery D.O. Consulting Unavailable Barb Rosenthal Attending Unavailable Jadon Fagan Attending Unavailable [facility] Primary Care Unavailable Jadon Fagan Admitting Unavailable Anurag Flannery D.O. Attending Unavailable [facility] Primary Care Unavailable Anurag Flannery D.O. Consulting Unavailable Galo Barb Consulting Unavailable Jadon Fagan Admitting Unavailable Anurag Flannery D.O. Attending Unavailable [facility] Primary Care Unavailable Anurag Flannery D.O. Consulting Unavailable Sementi, Barb Consulting Unavailable Fagan, Jadon Admitting Unavailable SergAlpa CHIP MIXER-C Attending Unavailable [facility] Primary Care Unavailable Anurag Flannery D.O. Consulting Unavailable Sementi, Barb Consulting Unavailable Fagan, Jadon Admitting Unavailable Kaley WillardO. Attending Unavailable [facility] Care Unavailable Anurag Flannery D.O. Consulting Unavailable Sementi, Barb Consulting Unavailable Fagan, Jadon Admitting Unavailable Alpa Ulrich CHIP MIXER-C Attending Unavailable [facility] Primary Care Unavailable Brett Willard.O. Consulting Unavailable Sementi, Barb Consulting Unavailable Fgaan, Jadon Admitting Unavailable Anurag Flannery D.O. Attending Unavailable [facility] Primary Care Unavailable Anurag Flannery D.O. Consulting Unavailable Sementi, Barb Consulting Unavailable Fagan, Jadon Admitting Unavailable Sementi, Barb Attending Unavailable [facility] Care Unavailable Anurag Flannery D.O. Consulting Unavailable Sementi, Barb Consulting Unavailable Fagan, Jadon Admitting Unavailable Sementi, Barb Attending Unavailable [facility] Primary Care Unavailable Anurag Flannery D.O. Consulting Unavailable Sementi, Barb Consulting Unavailable Sementi, Barb Attending Unavailable Fagan, Jadon Admitting Unavailable [facility] Primary Care Unavailable Anurag Flannery D.O. Consulting Unavailable Sementi, Barb Consulting Unavailable [facility] Care Unavailable Patel Ragland Attending Unavailable Ema Stevens Attending Unavailable [facility] Referring Unavailable Mike Duarte Attending Unavailable [facility] Primary Care Unavailable Mike Duarte Attending Unavailable Mike Duarte Referring Unavailable [facility] Primary Care Unavailable Shahzad Long Attending Unavailable Fagan, Jadon Referring Unavailable Oleghe, Efewongbe Attending Unavailable Oleghe, Efewongbe Referring Unavailable [facility] Primary Care Unavailable Oleghe, Efewongbe Attending Unavailable Oleghe, Efewongbe Referring Unavailable Oleghe, Efewongbe Primary Care Unavailable Oleghe, Efewongbe Attending Unavailable Oleghe, Efewongbe Referring Unavailable Oleghe, Efewongbe Primary Care Unavailable Oleghe, Efewongbe Attending Unavailable Oleghe, Efewongbe Referring Unavailable Oleghe, Efew[place]be Primary Care Unavailable Anurag Flannery D.O. Attending Unavailable Oleghe, Efewongbe Referring Unavailable Oleghe, [place] Primary Care Unavailable Anurag Flannery D.O. Attending Unavailable Brett Willard.O. Referring Unavailable Oleghe, Efewongbe Primary Care Unavailable Anurag Flannery D.O. Attending Unavailable Brett Willard.OHelio Referring Unavailable Oleghe, Efewongbe Primary Care Unavailable Anuarg Flannery D.O. Attending Unavailable Brett Willard.O. Referring Unavailable Oleghe, Efewongbe Primary Care Unavailable Mike Duarte Attending Unavailable Brett Willard.O. Referring Unavailable Brett Willard.O. Attending Unavailable Oleghe, Efewongbe Referring Unavailable Brett Willard.O. Attending Unavailable Brett Willard.O. Referring Unavailable Oleghe, Efewongbe Attending Unavailable Oleghe, [...] MOONEY Attending Unavailable JOY COHN Referring Unavailable JOY COHN Attending Unavailable DYLON MOONEY Referring Unavailable DYLON MOONEY Attending Unavailable Joy Cohn Referring Unavailable Joy Cohn Primary Care Unavailable DYLON MOONEY Attending Unavailable DYLON MOONEY Referring Unavailable Joy Cohn Primary Care Unavailable PROBLEMS PROBLEMS DATE TYPE CONDITION / CODE ATTENDING STATUS SOURCE Unknown I10 - Essential (primary) Oleghe, Active [place] [facility] hypertension / [facility] I10(ICD-10) Hospital Repository Unknown R25.2 - Cramp and spasm / Oleghe, Active [place] 9 R25.2(ICD-10) [facility] Rep[facility] Unknown G47.00 - Insomnia, Oleghe, Active [place] 9 unspecified / [facility] G47.00(ICD-10) Hospital Repository Unknown I42.9 - Cardiomyopathy, Severo Neal Active [place] unspecified / [facility] I42.9(ICD-10) Hospital Repository Unknown J44.9 - Chronic Stevens, Active [place] 9 obstructive pulmonary [facility] disease, unspecified / Hospital J44.9(ICD-10) Repository Unknown G47.33 - Obstructive Stevens, Active [place] 9 sleep apnea (adult) [facility] (pediatric) / Hospital G47.33(ICD-10) Repository Unknown Z00.00 - Encounter for Dorothye, Active [place] 9 general adult medical [facility] examination without Hospital abnormal findings / Repository Z00.00(ICD-10) Unknown Z23 - Encounter for Stevens, Active [place] 9 immunization / [facility] Z23(ICD-10) Hospital Repository Unknown 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, Baskin Active [place] 9 infarction / Community I25.2(ICD-10) Hospital Repository Unknown E78.00 - Pure Ethan, Shahzad Active [place] 9 hypercholesterolemia, Community unspecified / Hospital E78.00(ICD-10) Repository Unknown E78.0 - Pure Ethan, Baskin Active [place] 9 hypercholesterolemia / Community E78.0(ICD-10) Hospital Repository Unknown I50.20 - Unspecified Oleghe, Active [place] 8 systolic (congestive) [facility] heart failure / Hospital I50.20(ICD-10) Repository Unknown Z78.0 - Asymptomatic Oleghe, Active [place] 8 menopausal state / [facility] Z78.0(ICD-10) Hospital Repository Unknown J96.11 - Chronic Anurag Brown, Active [place] 8 respiratory failure with D.O. Community hypoxia / J96.11(ICD-10) Hospital Repository Unknown J44.1 - Chronic Oleghe, Active [place] 9 obstructive pulmonary [facility] disease with (acute) Hospital exacerbation / Repository J44.1(ICD-10) Unknown Z87.01 - Personal history Artemio, Active [place] 9 of pneumonia (recurrent) [facility] / Z87.01(ICD-10) Hospital Repository Unknown E87.8 - Other disorders Oleadolfoe, Active [place] 9 of electrolyte and fluid [facility] balance, not elsewhere Hospital classified / Repository E87.8(ICD-10) Unknown F41.9 - Anxiety disorder, Oleghe, Active [place] 9 unspecified / [facility] F41.9(ICD-10) Hospital Repository Unknown 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, 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 / [facility] E87.4(ICD-10) Hospital Repository Unknown G47.19 - Other Stevens, Active [place] 8 hypersomnia / [facility] G47.19(ICD-10) Hospital Repository Unknown J96.02 - Acute Stevens, Active [place] 8 respiratory failure with [facility] hypercapnia / Hospital J96.02(ICD-10) Repository Unknown I25.10 - Atherosclerotic Ethan, Shahzad Active [place] 8 heart disease of [place] [facility] coronary artery without Hospital angina pectoris / Repository I25.10(ICD-10) Unknown J96.00 - Acute Sementi, Active [place] 8 respiratory failure, [facility] unspecified whether with Hospital hypoxia or hypercapnia / Repository J96.00(ICD-10) Active Other cardiomyopathies / Shubham [facility] 8 I42.8(ICD-10) [facility] Other [facility] Repository Active Essential (primary) Shubham [place] 8 hypertension / [facility] Other I10(ICD-10) [facility] Repository Admitting Unknown / UNK(Unknown) Shubham MOONEY General 8 diagnosis [facility] Repository PROCEDURES PROCEDURES No Procedure Records FoundRESULTS RESULTS INTERNAL MEDICINE Observed: 07/25/2018 Status: F Source: [place] OFFICE VISIT 9:01 AM [facility] REPOSITORY [facility] [address] [place] [address] [place] [address] OFFICE VISIT Date of Service: 07/22/18 MR#: [id number] Acct: [id number] Name: LUIZA MAY Rep #: [id number] : 1955 Provider: Glenn Ulloa MD Age/Sex: 62/F Location: [facility] Status: Signed Intake Vital Signs07/22/18 Body Mass [...] acute distress Orientation: alert, awake, oriented x3 [facility] Head: atraumatic, normocephalic, normal to inspection Ears: [...] Refills given. This note was generated with Wobeek dictation software. It may contain incorrect words, [...] F Source: [place] PROFILE (BMP) 2:39 PM [facility] REPOSITORY TYPE CODE TESTS RESULT OUT OF [...] GAP Performed By: #### L500.2500, L501.5200 #### [facility] [address] [place], [place], [address] MAGNESIUM Collected: 07/22/2018 Status: F Source: [place] 2:39 PM [facility] REPOSITORY TYPE CODE TESTS RESULT OUT OF RANGE REFERENCE UNITS LAB L501.5200 1.6-2.6 mg/dL Normal MG 1.9 Result Comment: Slight Hemolysis, Result may be falsely increased. Performed By: #### L500.2500, L501.5200 #### [facility] [address] [place], [place], [address] EMERGENCY DEPARTMENT Observed: 07/20/2018 Status: F Source: [place] SUMMARY 11:50 PM [facility] REPOSITORY [facility] Medical Records Department [address] [place] [address] Emergency Department Summary 07/20/18 1603 MR#: [id number] Acct: [id number] Name: LUIZA MAY Rep #: [id number] : 1955 62 From: Patel Ragland MD [...] with azithromycin and prednisone. She may use roaw-hhs-hprowrh remedies for pain and fever. Follow-up with her doctor. Return for any new or worsening issues. Treatment Plan: As above Disposition: Discharge Impression: 1. Pharyngitis This note was generated with Wobeek dictation software. It may contain incorrect words, [...] problems, contact your Primary Care Provider. Call [facility] ([phone]) or report to the closest Emergency Room. Call 911 if necessary. 07/20/18 9090 <Electronically signed by Patel Ragland MD> Date Patel Ragland MD Cosigner Signature (If Indicated): Date CC: Glenn Ulloa MD DISCHARGE INSTRUCTION Observed: 07/20/2018 Status: F Source: [place] 11:50 PM [facility] REPOSITORY [facility] Medical Records Department [address] [place] [address] Discharge Instruction 07/20/18 1605 MR#: [id number] Acct: [id number] Name: LUIZA MAY Rep #: [id number] : 1955 62 From: Patel Ragland MD [...] your Primary Care Provider. Call [facility] ([phone]) or report to the closest Emergency Room. Call 911 if necessary. 07/20/18 7310 <Electronically signed by Patel Ragland MD> Date Patel Ragland MD Cosigner Signature (If Indicated): Date CC: Glenn Ulloa MD PULMONARY VISIT REPORT Observed: 05/10/2018 Status: F Source: [place] 10:04 AM [facility] REPOSITORY [facility] [place] [address] [place] [address] OFFICE VISIT Date of Service: 05/10/18 MR#: [id number] Acct: [id number] Name: LUIZA MAY Rep #: [id number] : 1955 Provider: Ema Stevens Age/Sex: 62/F [facility] Status: Signed Assessment AND Plan 1. TIO [...] lb Intake Visit Reasons: 1 M FU [place] Required: No DME Vendor: JULES Accompanied by: [...] F Source: [place] OFFICE VISIT 4:11 PM [facility] [address] [place] [address] OFFICE VISIT Date of Service: 04/13/18 MR#: [id number] Acct: [id number] Name: LUIZA MAY Rep #: [id number] : 1955 Provider: Glenn Ulloa MD Age/Sex: 62/F Location: [facility] Status: Signed Intake Vital Signs04/13/18 Height 5 [...] her pneumonia vaccines. Follows up at the [facility] for her gynecological care/mammogram. Recent bone density suggestive of osteopenia. Currently on calcium and vitamin D supplements. This note was generated with G5ation software. It may contain incorrect words, spelling, [...] Collected: 04/13/2018 Status: F Source: [place] PROFILE ([facility]) 2:10 PM [facility] REPOSITORY TYPE CODE TESTS RESULT OUT OF [...] 1 GAP Performed By: #### L500.2500 #### [facility] [address] [place], [address] PULMONARY VISIT REPORT Observed: 04/12/2018 Status: F Source: [place] 12:59 PM [facility] REPOSITORY [facility] [place] [address] [place] [address] OFFICE VISIT Date of Service: 04/12/18 MR#: [id number] Acct: [id number] Name: LUIZA MAY Rep #: [id number] : 1955 Provider: Ema Stevens Age/Sex: 62/F Location: [facility] Status: Signed Assessment AND Plan 1. TIO (obstructive sleep apnea) G47.33 Plan Change PAP setting from 16/11 cmH2O to 12/8 cmH2O. Refer patient to [facility] to seek proper fitting mask or eval [...] Orders Orders: Other Medications Discontinued: Flucelvax Quad 6174-6761 (PF) (flu vac qs 2018(4 yr up)CD(P0.5 mL IM ONCE 1 mL 0RF NS Z23 F)) Discontinued Reason: Office Medication has been Doc umented as given Follow Up 1 Month ([facility]) HPI 3 M FU: Chief Complaint: day [...] lb Intake Visit Reasons: 3 M FU [place] Required: No CRESCENCIO Vendor: JULES Accompanied by: [...] Positive normal affect Office Meds Flucelvax Quad 6165-7980 (PF) Performing Provider: FRED Peoples Administered by: April Carmona on 04/12/18 09:36 [address]ose [address] Admin Location Lot Number Expiration Date NDC Vacuum Kettle Cook 0.5 mL IM Lt Deltoid [id number] 12/03/18 07981-328-61 SEQIRUS Coding Level of Care Code Off vis,est,level 4 Diagnoses TIO (obstructive sleep apnea) G47.33 Chronic obstructive pulmonary disease, unspecified COPD type J44.9 COPD type: unspecified COPD Anxiety F41.9 04/12/18 1259 <Electronically signed by Ema IBARRA> Date Ema IBARRA Cosigner Signature: Date (if applicable) CC: Glenn Ulloa MD CARDIOLOGY VISIT Observed: 02/17/2018 Status: F Source: [place] REPORT 4:37 PM [facility] REPOSITORY [place] [facility] [address] [place] [address]. [address] [place] [address] OFFICE VISIT Date of Service: 02/16/18 MR#: [id number] Acct: [id number] Name: LUIZA MAY Rep #: [id number] : 1955 Provider: Shahzad Long MD Age/Sex: 62/F Location: [facility] Status: Signed [facility] Chief Complaint: Initial visit. Details: LUIZA MAY, is a 62 F who presents to the office today for an initial visit. She is a pleasant lady who had presented to [facility] to emergency room in February of this year with several episodes of hematemesis. It appear that she was in alcohol withdrawal as well and was transferred to [facility]. During her hospitalization there she was [...] PCP ref'd for heart failure, reduced EF [place] Required: No Accompanied by: Is patient in [...] EKG PERFORMED Observed: 02/16/2018 Status: F Source: [place] [facility] 8:50 AM [facility] REPOSITORY [facility] [address] [place] [address] 12 Lead EKG performed by [facility] 02/16/18 0849 MR#: [id number] Acct: [id number] Name: LUIZA MAY Rep #: [id number] : 1955 62 From: Shahzad Long MD Attending Dr: Shahzad Long MD Status: DEP AMB Ordering Dr: Shahzad Long MD Date: 02/16/18 [place] [facility] [place]: F C Admitted: BMS/12 Lead EKG performed by [facility] ECG Report Interpretation Sinus Bradycardia -Short TN syndrome Mar = 114BORDERLINE RHYTHMElectronically signed on 06/08/2018 at 11:30 by Shahzad [place] Software Version 8610 06/08/18 1135 Date Shahzad Long MD CC: Glenn Ulloa MD Date Dictated: 02/16/1849 Date Transcribed: 02/16/18848 Senior Cost Estimator: CO Signed DEXA BONE DENSITY Observed: 01/18/2018 Status: F Source: [place] STUDY 1:21 PM [facility] REPOSITORY [facility] Imaging Services [address] [place] [address] Dexa Bone Density Study MR#: [id number] Acct: [id number] Name: LUIZA MAY Rep #: [id number] : 1955 F 62 From: Vinny Mcghee MD PCP: Glenn Ulloa MD Status: REG CLI Study: Dexa Bone Density Study Date of Exam: 01/18/18 Exam# [id number] Ordering Dr: Glenn Ulloa MD STUDY: DUAL [...] Vinny Mcghee MD at 15:39 EDT Tel [phone], Service support , CC: Glenn Ulloa MD Senior Cost Estimator: Signed INTERNAL MEDICINE Observed: 01/14/2018 Status: F Source: [place] OFFICE VISIT 12:53 PM [facility] [address] [place] [address] OFFICE VISIT Date of Service: 01/12/18 MR#: [id number] Acct: [id number] Name: LUIZA MAY Rep #: [id number] : 1955 Provider: Glenn Ulloa MD Age/Sex: 62/F Location: [facility] Status: Signed Intake Vital Signs01/12/18 Height 5 [...] acute distress Orientation: alert, awake, oriented x3 [facility] Head: atraumatic, normocephalic Ears: hearing grossly normal [...] mammogram and Pap smears done at the [facility]. Pap smear due in about 2 years. 5. Heart failure with reduced ejection fraction I50.20 Plan Patient reports a history. Had previously followed up at the [facility] however, she wants to transfer care here. Referred to. the heart group. This note was generated with G5ation software. It may contain incorrect words, spelling, [...] VISIT REPORT Observed: 12/30/2017 Status: F Source: [place] 12:07 PM [facility] REPOSITORY Pulmonary Medicine [address] [place] [address] OFFICE VISIT Date of Service: 12/30/17 MR#: [id number] Acct: [id number] Name: LUIZA MAY Rep #: [id number] : 1955 Provider: Anurag Flannery D.O. Age/Sex: 62/F Location: [facility] Status: Signed Assessment AND Plan 1. Chronic [...] time she was evaluated by her then dbas, Dr. Saeed, and was told that she [...] in: walking frequency: daily Review of Systems EETM Ear Nose Throat Mouth: Positive hearing [...] 12/23/2017 Status: F Source: [place] 12:03 PM [facility] Medical Records Department [address] [place] [address] Downtime Report MR#: [id number] Acct: [id number] Name: LUIZA MAY Rep #: [id number] : 1955 62 From: Catalino Ayoub PCP: Glenn Ulloa MD Status: REG CLI This patient was seen during an EMR downtime December 06, 2017 - December 13, 2017. This patient may have a combination of paper and electronic documentation or all paper documentation. All documentation is viewable within the e-chart portion of [employer] for each patient visit. 6 MINUTE WALK TEST Observed: 12/13/2017 Status: F Source: [place] 11:41 AM [facility] Pulmonary Services/Neurology [address] [place] [address] MR#: [id number] Acct: [id number] Name: LUIZA MAY Rep #: [id number] : 1955 62 From: Anurag Flannery DO [...] Date Dictated: 12/13/17 1139 Date Transcribed: 12/13/171138 Senior Cost Estimator: Anurag Flannery DO Signed PULMONARY FUNCTION Observed: 11/30/2017 Status: F Source: [place] REPORT COMP 10:26 AM [facility] REPOSITORY [facility] Pulmonary Services/Neurology [address] [place] [address] MR#: [id number] Acct: [id number] Name: LUIZA MAY Rep #: [id number] : 1955 62 From: Mike Duarte MD Referring Dr: Anurag Flannery D.O. Status: REG CLI Ordering Dr: Date: Location: [facility] Sex: F C COMPLETE PULMONARY FUNCTION TEST INTERPRETATION Brief HPI: Patient is a 62 year old female, currently under the care of Dr. Flannery, who presents to [facility] for complete pulmonary function tests secondary to [...] Dictated: 11/30/17 1012 Date Transcribed: 11/30/17 1012 Senior Cost Estimator: RASHID Signed INTERNAL MEDICINE Observed: 11/19/2017 Status: F Source: BOSS OFFICE VISIT 1:50 PM [facility] Internal Medicine [address] [place] [address] [place] [address] OFFICE VISIT Date of Service: 11/17/17 MR#: [id number] Acct: [id number] Name: LUIZA MAY Rep #: [id number] : 1955 Provider: Glenn Ulloa MD Age/Sex: 62/F Location: [facility] Status: Signed Intake Vital Signs11/17/17 Height [...] QDAY #60 tab 11/17/17 [Rx Confirmed 11/17/17] PFS Medical History History of pneumonia (Acute) Hyperlipidemia [...] acidosis. Scheduled to follow up with pulmo. WHITNEY in 1 week. Orders Orders: 3. Heart failure with reduced ejection fraction I50.20 Plan Patient grossly unsure of her medications. She is currently on spironolactone and lisinopril amongst other however not on Lasix. Increased risk of hyperkalemia on above. However, Labs so far have been stable. I have asked her to confirm/ reconcile her medications with her buttermaker continuous churn. Also scheduled for an ECHO soon. Will [...] 11/18/2017 Status: F Source: FREDA 10:43 AM [facility] REPOSITORY [facility] [place] [place] [address] OFFICE VISIT Date of Service: 11/18/17 MR#: [id number] Acct: [id number] Name: LUIZA MAY Rep #: [id number] : 1955 Provider: Anurag Flannery D.O. Age/Sex: 62/F Location[place] [facility] Status: Signed Assessment AND Plan 1. Chronic [...] time she was evaluated by her then dbas, Dr. Saeed, and was told that she [...] FU Chief Complaint: establish care DME Vendor: [employer] Allergies tetanus and diphtheria toxoids [tetanus AND [...] F Source: FREDA PROFILE (BMP) 9:34 AM [facility] REPOSITORY TYPE CODE TESTS RESULT OUT OF [...] GAP 2 Performed By: #### L500.2500 #### [facility] Laboratory [facility] [place], [address] CBC W/DIFF, AUTOMATED Collected: 10/25/2017 Status: F Source: FREDA 9:36 AM [facility] REPOSITORY TYPE CODE TESTS RESULT OUT OF [...] 1.63 Performed By: #### L100.0100, L500.2500 #### [facility] Laboratory [address] [place], [address] BASIC METABOLIC Collected: 10/25/2017 Status: F Source: BOSS PROFILE ([facility]) 9:36 AM [facility] REPOSITORY TYPE CODE TESTS RESULT OUT OF [...] 4 Performed By: #### L100.0100, L500.2500 #### [facility] Laboratory [address] [place], [address] INTERNAL MEDICINE Observed: 10/22/2017 Status: F Source: BOSS OFFICE VISIT 8:27 AM [facility] REPOSITORY [facility] [address] [place] [address] OFFICE VISIT Date of Service: 10/18/17 MR#: [id number] Acct: [id number] Name: LUIZA MAY Rep #: [id number] : 1955 Provider: Glenn Ulloa MD Age/Sex: 62/F Location: [facility] Status: Signed Intake Vital Signs10/18/17 Height [...] Will follow. This note was generated with Wobeek dictation software. It may contain incorrect words, [...] EMERGENCY DEPARTMENT Observed: 10/02/2017 Status: F Source: BOSS SUMMARY 7:50 AM [facility] REPOSITORY [facility] Medical Records Department [address] [place] [address] Emergency Department Summary 09/24/17 0646 MR#: [id number] Acct: [id number] Name: LUIZA MAY Rep #: [id number] : 1955 61 From: Kvng Cornelius MD [...] Impression: [] This note was generated with Wobeek dictation software. It may contain incorrect words, [...] COPD Exacerbation This note was generated with Wobeek dictation software. It may contain incorrect words, [...] your Primary Care Provider. Call [facility] ([phone]) or report to the closest Emergency Room. Call 911 if necessary. 09/29/17 8614 <Electronically signed by Kvng Cornelius MD> Date Kvng Cornelius MD 10/02/17 4400<Electronically signed by Patel Ragland MD> Cosigner Signature (If Indicated): Date Patel Ragland MD CC: Joy Cohn MD PULMONARY VISIT REPORT Observed: 09/30/2017 Status: F Source: BOSS 5:55 PM [facility] REPOSITORY [facility] [place] [address] [place] [address] OFFICE VISIT Date of Service: 09/30/17 MR#: [id number] Acct: [id number] Name: LUIZA MAY Rep #: [id number] : 1955 Provider: Ema Stevens Age/Sex: 61/F Location: [facility] Status: Signed Assessment AND Plan 1. Chronic [...] care provider, she has been referred to [facility]. Orders Orders: Referrals: 2. Acute [...] Other Medications Discontinued: cefdinir Discontinued Reason: Order Xtmblxk662 mg PO BID April Carmona ed prednisone Discontinued Reason: Pt no longe40 mg (2 x 20 mg) PO DAILY April Carmona r taking Follow Up 1 Month (DMB) HPI HPI Comments Details: This is a 61 year old F, currently under the care of Joy Cohn, here to follow up after a recent hospitalization at [facility] , from September 14 - September 17, [...] (NOCHG) 09/30/17 1755 <Electronically signed by Ema DE OLIVEIRAC> Date Ema Stevens NP-C Cosigner Signature: Date (if applicable) CC: lGenn Ulloa MD 12 LEAD ELECTROCARDIOGRAM Observed: 09/28/2017 Status: F Source: FREDA 1:28 PM [facility] REPOSITORY [facility] Cardiovascular Services [address] [place] [address] 12 Lead EKG 09/24/17 0706 MR#: [id number] Acct: [id number] Name: LUIZA MAY Rep #: [id number] : 1955 61 From: Shahzad Long MD [...] : 408 ms Sinus rhythm with short TN Otherwise normal ECG Confirmed by SHAHZAD LONG MD ([id number]), senior technical editor AJ AYOUB ([id number]) on 09/28/2017 1:28:35 PM Referred By: ZOE Confirmed By:SHAHZAD LONG MD 09/28/17 1328 Date Shahzad Long MD CC: Patel Ragland MD; Kvng Cornelius MD; Joy Cohn MD Signed DISCHARGE INSTRUCTION Observed: 09/24/2017 Status: F Source: [facility]A 5[facility] PM [facility] Medical Records Department [address] [place] [address] Discharge Instruction 09/24/17 0838 MR#: [id number] Acct: [id number] Name: LUIZA MAY Rep #: [id number] : 1955 61 From: Patel Ragland MD [...] problems, contact your Primary Care Provider. Call [facility] ([phone]) or report to the closest Emergency Room. Call 911 if necessary. 09/24/17 1711 <Electronically signed by Patel Ragland MD> Date Patel Ragland MD Cosigner Signature (If Indicated): Date CC: Joy Cohn MD BLOOD GASES BY CPS Collected: 09/24/2017 Status: F Source: BOSS 7:20 AM [facility] REPOSITORY TYPE CODE TESTS RESULT OUT OF [...] ISTAT 99 Performed By: #### L9000.0800 #### [facility] Laboratory Point of Care [address] [place] [address] CBC W/DIFF, AUTOMATED Collected: 09/24/2017 Status: C Source: BOSS 7:08 AM [facility] REPOSITORY TYPE CODE TESTS RESULT OUT OF [...] Ivon mast Performed By: #### L100.0100 #### [facility] Laboratory [address] [place], [address] BASIC METABOLIC Collected: 09/24/2017 Status: F Source: BOSS PROFILE (BMP) 7:08 AM [facility] REPOSITORY Order Comment: 'TROP' Serial specimen #1, [...] GAP Performed By: #### L500.2500, L501.4010 #### [facility] Laboratory [address] [place], [address] TROPONIN-I Collected: 09/24/2017 Status: F Source: BOSS 7:08 AM [facility] REPOSITORY Order Comment: 'TROP' Serial specimen #1, #2, #3, or #4: 1 TYPE CODE TESTS RESULT OUT OF RANGE REFERENCE UNITS LAB L501.4010 <0.06 ng/mL Normal < 0.02 TROPONIN-I Result Comment: TROPONIN-I EXPECTED VALUES <0.05 NEGATIVE 0.06 - 0.59 AT RISK OF PA > OR = 0.60 SUGGEST PA Performed By: #### L500.2500, L501.4010 #### [facility] Laboratory [address] [facility] [address] [place], [place], [address] CHEST 1 VIEW Observed: 09/24/2017 Status: F Source: BOSS (PORTABLE) 6:44 AM [facility] REPOSITORY [facility] Imaging Services [address] [place] [address] Chest 1 View (Portable) MR#: [id number] Acct: [id number] Name: LUIZA MAY Rep #: [id number] : 1955 F 61 From: Brian Funez DO PCP: Favio MENDES,Joy Status: REG ER Study: Chest 1 View (Portable) Date of Exam: 09/24/17 Exam# [id number] Ordering Dr: Kvng Cornelius MD STUDY: X-RAY [...] COPD. Lungs are clear. Electronically Signed: Brian DO Armin at 7:19 EDT Tel , Service support , CC: Kvng Cornelius MD; Joy Cohn MD Senior Cost Estimator: Signed DISCHARGE SUMMARY Observed: 09/21/2017 Status: F Source: BOSS 1:45 PM [facility] REPOSITORY [facility] Medical Records Department [address] [place] [address] Discharge Summary 09/17/17 1723 MR#: [id number] Acct: [id number] Name: LUIZA MAY Rep #: [id number] : 1955 61 From: Booker ROSENTHAL PCP: Joy Cohn MD Status: DIS IN Y [id number] <Booker Parson - Last Filed: 09/17/17 17:38> Discharge Date [...] The lines are in adequate position. Consults: Prudencio - intensive care / pulm Operations: None [...] have been written. Inpatient E AND M: [id number] Disch Hosp 09/17/17 8598 <Electronically signed by Booker ROSENTHAL> Date Booker ROSENTHAL 09/21/17 1415<Electronically signed by Vipin Rosenthal DO> Cosigner Signature (if applicable): Date Vipin Rosenthal DO CC: GALO Parson; Barb Rosenthal; Joy Cohn MD Signed DISCHARGE INSTRUCTION Observed: 09/17/2017 Status: F Source: FREDA 4:19 PM [facility] REPOSITORY [facility] Medical Records Department [address] [place] [address] Instructions for Home/Discharge Instructions 09/17/17 1618 MR#: [id number] Acct: [id number] Name: LUIZA MAY Rep #: [id number] : 1955 61 From: Booker ROSENTHAL PCP: [...] LEAD ELECTROCARDIOGRAM Observed: 09/17/2017 Status: F Source: BOSS 1:55 PM [facility] REPOSITORY [facility] Cardiovascular Services [address] [place] [address] 12 Lead EKG 09/15/17 0501 MR#: [id number] Acct: [id number] Name: LUIZA MAY Rep #: [id number] : 1955 61 From: Shahzad Long MD Attending Dr: Barb Rosenthal Status: ADM IN Ordering Dr: Vipin Rosenthal DO Date: 09/15/17 Location: [facility] Sex: F C Admitted: 09/14/17 Test Reason : AM EKG Blood Pressure : / mmHG Vent. Rate : 084 BPM Atrial Rate : 084 BPM P-R Int : 110 ms QRS Dur : 084 ms QT Int : 402 ms P-R-T Axes : 071 043 026 degrees QTc Int : 475 ms Sinus rhythm with short TN Otherwise normal ECG When compared with ECG of 13-SEP-2017 22:56, MANUAL COMPARISON REQUIRED, DATA IS UNCONFIRMED Confirmed by SHAHZAD LONG MD ([id number]), senior technical editor AJ AYOUB ([id number]) on 09/17/2017 1:55:00 PM Referred By: JORDY Confirmed By:SHAHZAD LONG MD 09/17/17 1355 Date Shahzad Long MD CC: Barb Rosenthal; Joy Cohn MD Signed VANCOMYCIN, TROUGH Collected: 09/17/2017 Status: F Source: FREDA LEVEL 9:15 AM [facility] REPOSITORY Order Comment: Time Medication is to [...] (Ventilator/Healtcare Associated) -Sepsis PLEASE CONTACT PHARMACY SERVICES (#[id number]) FOR INTERPRETATION OF RESULTS. Performed By: #### L501.8820 #### [facility] Laboratory [address] [place], [address] BEDSIDE GLUCOSE Collected: 09/16/2017 Status: F Source: FREDA 9:10 PM [facility] REPOSITORY TYPE CODE TESTS RESULT OUT OF REFERENCE UNITS RANGE LAB L501.080 70-110 mg/dL High BEDSIDE GLU 125 Result Comment: MANAGEMENT OF PATIENT CARE PER NURSING PROTOCOL Performed By: #### L501.080 #### [facility] Laboratory Point of Care [address] [place] [address] BEDSIDE GLUCOSE Collected: 09/16/2017 Status: F Source: FREDA 4:55 PM [facility] REPOSITORY TYPE CODE TESTS RESULT OUT OF REFERENCE UNITS RANGE LAB L501.080 70-110 mg/dL High BEDSIDE GLU 128 Result Comment: MANAGEMENT OF PATIENT CARE PER NURSING PROTOCOL Performed By: #### L501.080 #### [facility] Laboratory Point of Care [address] [place] [address] BEDSIDE GLUCOSE Collected: 09/16/2017 Status: F Source: FREDA 11:52 AM [facility] REPOSITORY TYPE CODE TESTS RESULT OUT OF REFERENCE UNITS RANGE LAB L501.080 70-110 mg/dL High BEDSIDE GLU 140 Result Comment: MANAGEMENT OF PATIENT CARE PER NURSING PROTOCOL Performed By: #### L501.080 #### [facility] Laboratory Point of Care [address] [place] [address] BEDSIDE GLUCOSE Collected: 09/16/2017 Status: F Source: FREDA 6:52 AM [facility] REPOSITORY TYPE CODE TESTS RESULT OUT OF REFERENCE UNITS RANGE LAB L501.080 70-110 mg/dL High BEDSIDE GLU 271 Result Comment: MANAGEMENT OF PATIENT CARE PER NURSING PROTOCOL Performed By: #### L501.080 #### [facility] Laboratory Point of Care [address] [place] [address] BEDSIDE GLUCOSE Collected: 09/15/2017 Status: F Source: FREDA 9:24 PM [facility] REPOSITORY TYPE CODE TESTS RESULT OUT OF REFERENCE UNITS RANGE LAB L501.080 70-110 mg/dL High BEDSIDE GLU 132 Result Comment: MANAGEMENT OF PATIENT CARE PER NURSING PROTOCOL Performed By: #### L501.080 #### [facility] Laboratory Point of Care [address] [place] [address] BEDSIDE GLUCOSE Collected: 09/15/2017 Status: F Source: FREDA 5:03 PM [facility] REPOSITORY TYPE CODE TESTS RESULT OUT OF REFERENCE UNITS RANGE LAB L501.080 70-110 mg/dL High BEDSIDE GLU 126 Result Comment: MANAGEMENT OF PATIENT CARE PER NURSING PROTOCOL Performed By: #### L501.080 #### [facility] Laboratory Point of Care [address] [place] [address] 12 LEAD ELECTROCARDIOGRAM Observed: 09/15/2017 Status: F Source: BOSS 4:05 PM [facility] REPOSITORY [facility] Cardiovascular Services [address] [place] [address] 12 Lead EKG 09/12/17 1655 MR#: [id number] Acct: [id number] Name: LUIZA MAY Rep #: [id number] : 1955 61 From: Shahzad Long MD [...] Abnormal ECG Confirmed by SHAHZAD LONG MD ([id number]), senior technical editor AJ AYOUB ([id number]) on 09/15/2017 4:05:11 PM Referred By: TL Confirmed By:SHAHZAD LONG MD 09/15/17 1605 Date Shahzad Long MD CC: Joy Cohn MD; Darrick Mckeon Signed 12 LEAD ELECTROCARDIOGRAM Observed: 09/15/2017 Status: F Source: BOSS 3:38 PM [facility] REPOSITORY [facility] Cardiovascular Services [address] [place], [place] [address] [address] 12 Lead EKG 09/13/17 2256 MR#: [id number] Acct: [id number] Name: LUIZA MAY Rep #: [id number] : 1955 61 From: Shahzad Long MD [...] Abnormal ECG Confirmed by SHAHZAD LONG MD ([id number]), senior technical editor AJ AYOUB ([id number]) on 09/15/2017 3:37:42 PM Referred By: DANO Confirmed By:SHAHZAD LONG MD 09/15/17 1537 Date Shahzad Long MD CC: Neptali Garcia MD; Joy Cohn MD Signed 12 LEAD ELECTROCARDIOGRAM Observed: 09/15/2017 Status: F Source: FREDA 3:38 PM [facility] REPOSITORY [facility] Cardiovascular Services [address] [place] [address] 12 Lead EKG 09/14/17 0038 MR#: [id number] Acct: [id number] Name: LUIZA MAY Rep #: [id number] : 1955 61 From: Shahzad Long MD [...] Confirmed by SHAHZAD LONG MD ([id number]), senior technical editor AJ AYOUB ([id number]) on 09/15/2017 3:37:59 PM Referred By: DANO Confirmed By:SHAHZAD LONG MD 09/15/17 1538 Date Shahzad Long MD CC: Neptali Garcia MD; Joy Cohn MD Signed BEDSIDE GLUCOSE Collected: 09/15/2017 Status: F Source: FREDA 11:35 AM [facility] REPOSITORY TYPE CODE TESTS RESULT OUT OF REFERENCE UNITS RANGE LAB L501.080 70-110 mg/dL High BEDSIDE GLU 170 Result Comment: MANAGEMENT OF PATIENT CARE PER NURSING PROTOCOL Performed By: #### L501.080 #### [facility] Laboratory Point of Care [address] [place] [address] Observed: 09/15/2017 Status: F Source: FREDA CULTURE, URINE 9:40 AM [facility] REPOSITORY Urine Culture ORGANISM 1: Escherichia coli [place] Count >100,000 Escherichia coli: REACTION Amoxacillin/Clavulanic Acid [...] >=320 R (NF) indicates non-formulary drug at [facility]. Approval by Infectious Disease Specialist required before non-formulary drugs may be ordered and/or dispensed. Performed By: #### M100.0650 #### [facility] Laboratory [address] [facility] [place], [address] CONSULTATION Observed: 09/15/2017 Status: F Source: BOSS 8:13 AM [facility] REPOSITORY [facility] Medical Records Department [address] [place] [address] Consultation 09/14/17 0454 MR#: [id number] Acct: [id number] Name: LUIZA MAY Rep #: [id number] : 1955 61 From: Anurag Flannery DO [...] History: cholecystectomy Psychiatric History: - - Insomnia MANAGER FINE History: No pertinent MANAGER FINE history Smoking Status: Former smoker - *Family [...] data and collaboration with the care team. ([id number]) Code Visit 9xxxx: [id number] Critical care first hour 09/15/17 0813 <Electronically signed by Anurag Flannery DO> Date Anurag Flannery DO Cosigner Signature (if applicable): Date CC: Anurag Flannery D.O.; Joy Cohn MD Signed CBC-COMPLETE BLOOD CNT Collected: 09/15/2017 Status: F Source: FREDA NO DIFF 4:30 AM [facility] REPOSITORY TYPE CODE TESTS RESULT OUT OF [...] MPV 10.9 Performed By: #### L100.0500 #### [facility] [address] [place], [address] COMPREHENSIVE METABOLIC Collected: 09/15/2017 Status: F Source: [facility] 4:30 AM [facility] REPOSITORY TYPE CODE TESTS RESULT OUT OF [...] By: #### L500.4050, L500.4100, L501.2300, L501.5200 #### [facility] Laboratory [address] [facility] [place], [place], [address] LIPID PROFILE Collected: 09/15/2017 Status: F Source: BOSS 4:30 AM [facility] REPOSITORY TYPE CODE TESTS RESULT OUT OF [...] By: #### L500.4050, L500.4100, L501.2300, L501.5200 #### [facility] [address] [place], [place], [address] PHOSPHORUS Collected: 09/15/2017 Status: F Source: BOSS 4:30 AM [facility] REPOSITORY TYPE CODE TESTS RESULT OUT OF RANGE REFERENCE UNITS LAB L501.2300 2.5-4.9 mg/dL Low PHOS 1.7 Performed By: #### L500.4050, L500.4100, L501.2300, L501.5200 #### [facility] [address] [place], [address] MAGNESIUM Collected: 09/15/2017 Status: F Source: BOSS 4:30 AM [facility] REPOSITORY TYPE CODE TESTS RESULT OUT OF RANGE REFERENCE UNITS LAB L501.5200 1.6-2.6 mg/dL Normal MG 2.1 Result Comment: Please note revised Magnesium reference range effective 2017. Performed By: #### L500.4050, L500.4100, L501.2300, L501.5200 #### [facility] [address] [facility] [place], [address] HEMOGLOBIN A1C Collected: 09/15/2017 Status: F Source: BOSS 4:30 AM [facility] TYPE CODE TESTS RESULT OUT OF RANGE REFERENCE UNITS LAB L501.9985 4.2-6.3 % Normal HGB A1C 5.8 Performed By: #### L501.9985 #### [facility] [address] [place], [address] CHEST 1 VIEW Observed: 09/15/2017 Status: F Source: BOSS (PORTABLE) 12:01 AM [facility] Imaging Services [address] [place] [address] Chest 1 View (Portable) MR#: [id number] Acct: [id number] Name: LUIZA MAY Rep #: [id number] : 1955 F 61 From: Ayah Coffman MD PCP: Joy Cohn MD Status: ADM IN Study: Chest 1 View (Portable) Date of Exam: 09/15/17 Exam# [id number] Ordering Dr: Vipin Rosenthal DO STUDY: X-RAY [...] , CC: Barb Rosenthal; Joy Cohn MD Senior Cost Estimator: Signed TROPONIN-I Collected: 09/14/2017 Status: F Source: BOSS 11:55 PM [facility] REPOSITORY Order Comment: 'TROP' Serial specimen #1, #2, #3, or #4: 4 TYPE CODE TESTS RESULT OUT OF RANGE REFERENCE UNITS LAB L501.4010 <0.06 ng/mL Normal 0.06 TROPONIN-I Result Comment: TROPONIN-I EXPECTED VALUES <0.05 NEGATIVE 0.06 - 0.59 AT RISK OF PA > OR = 0.60 SUGGEST PA Performed By: #### L501.4010 #### [facility] [address] [place], [address] CBC W/DIFF, AUTOMATED Collected: 09/14/2017 Status: F Source: BOSS 9:15 PM [facility] REPOSITORY TYPE CODE TESTS RESULT OUT OF [...] Lymph 0.67 Performed By: #### L100.0100 #### [facility] [address] [place], [place], [address] BASIC METABOLIC Collected: 09/14/2017 Status: F Source: FREDA PROFILE (BMP) 9:15 PM [facility] REPOSITORY TYPE CODE TESTS RESULT OUT OF [...] 7 GAP Performed By: #### L500.2500 #### [facility] [address] [facility] [place], [address] CHEST 1 VIEW Observed: 09/14/2017 Status: F Source: BOSS (PORTABLE) 8:27 PM [facility] REPOSITORY [facility] Imaging Services [address] [place] [address] Chest 1 View (Portable) MR#: [id number] Acct: [id number] Name: LUIZA MAY Rep #: [id number] : 1955 F 61 From: James Jj MD PCP: Joy Cohn MD Status: ADM IN Study: Chest 1 View (Portable) Date of Exam: 09/14/17 Exam# [id number] Ordering Dr: Vipin Rosenthal DO STUDY: X-RAY CHEST REASON FOR EXAM: Female, 61 years old. Possible aspiration, hypoxemia TECHNIQUE: Single AP portable view of the chest. COMPARISON: Prior study of earlier this date 3:58 AM FINDINGS: laboratory monitor leads are present. A nasogastric tube is present with the tip in the abdomen out of the wauae-jk-wdpr of this study. There is an endotracheal [...] , CC: Barb Rosenthal; Joy Cohn MD Senior Cost Estimator: Signed BEDSIDE GLUCOSE Collected: 09/14/2017 Status: F Source: FREDA 6:09 PM [facility] REPOSITORY TYPE CODE TESTS RESULT OUT OF REFERENCE UNITS RANGE LAB L501.080 70-110 mg/dL High BEDSIDE GLU 182 Result Comment: MANAGEMENT OF PATIENT CARE PER NURSING PROTOCOL Performed By: #### L501.080 #### [facility] Point of Care [address] [place], [place] [address] TROPONIN-I Collected: 09/14/2017 Status: F Source: FREDA 1:30 PM [facility] REPOSITORY Order Comment: 'TROP' Serial specimen #1, #2, #3, or #4: 2 TYPE CODE TESTS RESULT OUT OF RANGE REFERENCE UNITS LAB L501.4010 <0.06 ng/mL High 0.09 TROPONIN-I Result Comment: TROPONIN-I EXPECTED VALUES <0.05 NEGATIVE 0.06 - 0.59 AT RISK OF PA > OR = 0.60 SUGGEST PA Performed By: #### L501.4010 #### [facility] [address] [place], [address] Observed: 09/14/2017 Status: F Source: BOSS CULTURE, SPUTUM 11:05 AM [facility] REPOSITORY Gram Stain Acceptable Specimen? Yes (<25 [...] 0.5 S (NF) indicates non-formulary drug at [facility]. Approval by Infectious Disease Specialist required before non-formulary drugs may be ordered and/or dispensed. * CLSI guidelines does not recommend testing of cephalosporins. This interpretation is deduced from Beta-lactam/penicillin results. Performed By: #### M100.0800 #### [facility] [address] [facility] [place], [place], [address] ALCOHOL, BLOOD Collected: 09/14/2017 Status: F Source: BOSS (MEDICAL)-SERUM 10:30 AM [facility] REPOSITORY TYPE CODE TESTS RESULT OUT OF [...] fatal coma Performed By: #### L501.9100 #### [facility] [address] [facility] [address] [place], [place], [address] URINE DRUG SCREEN Collected: 09/14/2017 Status: F Source: FREDA (VISTA) 8:35 AM [facility] REPOSITORY TYPE CODE TESTS RESULT OUT OF [...] Normal NEGATIVE Performed By: #### L505.5000 #### [facility] [address] [place], [place], [address] URINE SODIUM Collected: 09/14/2017 Status: F Source: FREDA 8:35 AM [facility] REPOSITORY TYPE CODE TESTS RESULT OUT OF RANGE REFERENCE UNITS LAB L501.5500 Not Establ. mmol/L Normal UR NA 41 Performed By: #### L501.5500 #### [facility] [address] [facility] [address] [place], [place], [address] CREATININE, URINE Collected: 09/14/2017 Status: F Source: FREDA (RANDOM) 8:35 AM [facility] REPOSITORY TYPE CODE TESTS RESULT OUT OF RANGE REFERENCE UNITS LAB L501.1200 NO RANGE EST. mg/dL Normal UR CREAT 64.10 Performed By: #### L501.1200 #### [facility] [address] [place], [address] AMMONIA Collected: 09/14/2017 Status: F Source: FREDA 8:30 AM [facility] REPOSITORY TYPE CODE TESTS RESULT OUT OF RANGE REFERENCE UNITS LAB L503.5510 11-32 umol/L Normal AMMONIA 29.0 Performed By: #### L503.5510 #### [facility] [facility] [place], [address] M R STAPH AUREUS Collected: 09/14/2017 Status: F Source: BOSS DNA BY PCR 8:30 AM [facility] REPOSITORY TYPE CODE TESTS RESULT OUT OF RANGE REFERENCE UNITS LAB L8200.1100 Negative Normal MRSA Negative RESULT Performed By: #### L8200.1000 #### [facility] [facility] [place], [address] Observed: 09/14/2017 Status: F Source: FREDA RESPIRATORY PANEL 7:08 AM [facility] MOLECULAR REPOSITORY RP PANEL ADENOVIRUS Not Detected [...] acid amplification Performed By: #### M100.638 #### [facility] [facility] [place], [address] CBC W/DIFF, AUTOMATED Collected: 09/14/2017 Status: F Source: BOSS 3:10 AM [facility] REPOSITORY TYPE CODE TESTS RESULT OUT OF [...] 1.16 Performed By: #### L100.0100, L100.4425 #### [facility] [address] [facility] [address] [place], [place], [address] NRBC PANEL Collected: 09/14/2017 Status: F Source: BOSS 3:10 AM [facility] REPOSITORY TYPE CODE TESTS RESULT OUT OF RANGE REFERENCE UNITS LAB L100.4450 0-5 % Normal NRBC, FLAGGED 2.4 LAB L100.4455 0-5 10 3/uL Normal NRBC # 0.25 Performed By: #### L100.0100, L100.4425 #### [facility] [address] [place], [place], [address] PROTHROMBIN TIME W/INR Collected: 09/14/2017 Status: F Source: BOSS 3:10 AM [facility] REPOSITORY Order Comment: REDRAW. PREVIOUS SPECIMEN REJECTED DUE TO HEMOLYSIS/QNS. 09/13/17 2223 Pippa Vázquez. TYPE CODE TESTS RESULT OUT OF RANGE REFERENCE UNITS LAB L300.4150 11.7-14.9 SECONDS Normal PROTIME 14.5 LAB L300.4200 Normal INR 1.1 Performed By: #### L300.3900 #### [facility] [address] [place], [address] COMPREHENSIVE METABOLIC Collected: 09/14/2017 Status: F Source: [facility] 3:10 AM [facility] REPOSITORY TYPE CODE TESTS RESULT OUT OF [...] GAP 8 Performed By: #### L500.4050 #### [facility] [address] [place], [address] THYROID STIM HORMONE Collected: 09/14/2017 Status: F Source: FREDA (TSH) 3:10 AM [facility] REPOSITORY TYPE CODE TESTS RESULT OUT OF RANGE REFERENCE UNITS LAB L501.9520 0.358-3.74 uIU/mL Normal TSH 1.38 Performed By: #### L501.9520 #### [facility] [address] [place], [address] BNP,B-TYPE NATRIURETIC Collected: 09/14/2017 Status: F Source: FREDA PEPTIDE 3:10 AM [facility] REPOSITORY TYPE CODE TESTS RESULT OUT OF RANGE REFERENCE UNITS LAB L503.6620 0-100 pg/mL High B-TYPE 820.9 BHUMI PEP Performed By: #### L503.6620 #### [facility] [address] [place], [address] Observed: 09/14/2017 Status: F Source: FREDA CULTURE, BLOOD (WB) 3:10 AM [facility] REPOSITORY BC No growth in 5 days. Performed By: #### M200.1000 #### [facility] [address] [place], [address] Observed: 09/14/2017 Status: F Source: FREDA CULTURE, BLOOD (WB) 3:10 AM [facility] REPOSITORY BC No growth in 5 days. Performed By: #### M200.1000 #### [facility] [address] [place], [address] CHEST 1 VIEW Observed: 09/14/2017 Status: F Source: FREDA (PORTABLE) 2:26 AM [facility] REPOSITORY [facility] Imaging Services [address] [place] [address] Chest 1 View (Portable) MR#: [id number] Acct: [id number] Name: LUIZA MAY Rep #: [id number] : 1955 F 61 From: Ayah Coffman MD PCP: Joy Cohn MD Status: ADM IN Study: Chest 1 View (Portable) Date of Exam: 09/14/17 Exam# [id number] Ordering Dr: Jadon Fagan MD STUDY: X-RAY [...] CC: Joy Cohn MD; Jadon Fagan MD Senior Cost Estimator: Signed BLOOD GASES BY CPS Collected: 09/14/2017 Status: F Source: FREDA 1:08 AM [facility] REPOSITORY TYPE CODE TESTS RESULT OUT OF RANGE REFERENCE UNITS LAB L9000.9990 Normal BLD GAS TYPE ART LAB L9001.1000 Normal SITE R Radial LAB L9001.1048 Normal Mode A-C LAB L9001.1050 O2 Normal Delivery Dev Vent LAB L9001.1065 Vt Normal 450 LAB L9001.1070 RR Normal 14 LAB L9001.1074 Normal FI02 50 LAB L9001.1076 Normal PEEP 5 LAB L9001.1104 Normal Results To ED MD LAB L9001.1105 Normal Time Given 107 LAB [...] ISTAT 98 Performed By: #### L9000.0800 #### [facility] Point of Care [address] [place] [address] HISTORY AND PHYSICAL Observed: 09/14/2017 Status: F Source: FREDA EXAM 12:49 AM [facility] REPOSITORY [facility] Medical Records Department [address] [place] [address] History and Physical 09/14/17 0039 MR#: [id number] Acct: [id number] Name: LUIZA MAY Rep #: [id number] : 1955 61 From: Jadon Fagan MD [...] History: cholecystectomy Psychiatric History: - - Insomnia MANAGER FINE History: No pertinent MANAGER FINE history Smoking Status: Former smoker - *Family [...] am Code Visit Inpatient E AND M: 66619 Init Hosp L3 09/14/17 0049 <Electronically signed by Jadon Fagan MD> Date Jadon Fagan MD Cosigner Signature: Date (if applicable) CC: Joy Cohn MD; Jadon Fagan MD Signed EMERGENCY DEPARTMENT Observed: 09/14/2017 Status: F Source: BOSS SUMMARY 12:46 AM [facility] REPOSITORY [facility] Medical Records Department [address] [place] [address] Emergency Department Summary 09/14/17 0036 MR#: [id number] Acct: [id number] Name: LUIZA MAY Rep #: [id number] : 1955 61 From: Neptali Garcia MD PCP: Joy Cohn MD Status: REG ER - ER Visit Summary Date of Service: 09/14/17 Chief Complaint: Confusion History of Present Illness: The patient is a 61 F who presents with confusion. Does have a significant past medical history of stroke, [place] ES family states she has been increasingly [...] She was discussed with Dr. Flannery the machine maintenance on-call as well as the hospitalist will be admitted to the ICU. Repeat EKG shows persistent T-wave inversions in V1 and V2 with biphasic T waves in V3 and V4. Treatment Plan: [] Disposition: Admit Impression: Acute kidney injury Acute hypercapnic respiratory failure EKG changes This note was generated with Wobeek dictation software. It may contain incorrect words, [...] problems, contact your Primary Care Provider. Call [facility] ([phone]) or report to the closest Emergency Room. Call 911 if necessary. 09/14/17 0046 <Electronically signed by Neptali Garcia MD> Date Neptali Garcia MD Cosigner Signature (If Indicated): Date CC: Joy Cohn MD CHEST 1 VIEW Observed: 09/13/2017 Status: F Source: BOSS (PORTABLE) 11:40 PM [facility] REPOSITORY [facility] Imaging Services [address] [place] [address] Chest 1 View (Portable) MR#: [id number] Acct: [id number] Name: LUIZA MAY Rep #: [id number] : 1955 F 61 From: Peter De Guzman MD PCP: Joy Cohn MD Status: REG ER Study: Chest 1 View (Portable) Date of Exam: 09/13/17 Exam# [id number] Ordering Dr: Neptali Garcia MD STUDY: X-RAY [...] CC: Neptali Garcia MD; Joy Cohn MD Senior Cost Estimator: Signed LACTIC ACID Collected: 09/13/2017 Status: F Source: FREDA 11:23 PM [facility] REPOSITORY TYPE CODE TESTS RESULT OUT OF RANGE REFERENCE UNITS LAB L503.6005 0.4-2.0 mmol/L Normal LACTIC ACID 0.7 Performed By: #### L503.6005 #### [facility] [address] [facility] [address] [place], [place], [address] BLOOD GASES BY CPS Collected: 09/13/2017 Status: F Source: FREDA 11:13 PM [facility] REPOSITORY TYPE CODE TESTS RESULT OUT OF [...] ISTAT 97 Performed By: #### L9000.0800 #### [facility] Point of Care [address] [place], [place] [address] BRAIN/HEAD WITHOUT Observed: 09/13/2017 Status: F Source: FREDA CONTRAST 10:08 PM [facility] REPOSITORY [facility] Imaging Services [address] [place] [address] Brain/Head without Contrast MR#: [id number] Acct: [id number] Name: LUIZA MAY Rep #: [id number] : 1955 F 61 From: James Jj MD PCP: Favio MENDES,Joy Status: PRE ER Study: Brain/Head without Contrast Date of Exam: 09/13/17 Exam# [id number] Ordering Dr: Neptali Garcia MD STUDY: CT [...] CC: Neptali Garcia MD; Joy Cohn MD Senior Cost Estimator: Signed CHEST 1 VIEW Observed: 09/13/2017 Status: F Source: FREDA (PORTABLE) 10:08 PM [facility] REPOSITORY [facility] Imaging Services [address] [place] [address] Chest 1 View (Portable) MR#: [id number] Acct: [id number] Name: LUIZA MAY Rep #: [id number] : 1955 F 61 From: James Jj MD PCP: Joy Cohn MD Status: PRE ER Study: Chest 1 View (Portable) Date of Exam: 09/13/17 Exam# [id number] Ordering Dr: Neptali Garcia MD STUDY: X-RAY CHEST REASON FOR EXAM: Female, 61 years old. Increased confusion TECHNIQUE: Single AP portable view of the chest. COMPARISON: Previous study of 09/12/2017 FINDINGS: laboratory monitor leads are present. The lungs are clear [...] CC: Neptali Garcia MD; Joy Cohn MD Senior Cost Estimator: Signed BEDSIDE GLUCOSE Collected: 09/13/2017 Status: F Source: BOSS 10:07 PM [facility] REPOSITORY TYPE CODE TESTS RESULT OUT OF RANGE REFERENCE UNITS LAB L501.080 70-110 mg/dL Normal BEDSIDE GLU 105 Result Comment: MANAGEMENT OF PATIENT CARE PER NURSING PROTOCOL Performed By: #### L501.080 #### [facility] [place] [address] CBC W/DIFF, AUTOMATED Collected: 09/13/2017 Status: C Source: FREDA 9:56 PM [facility] REPOSITORY TYPE CODE TESTS RESULT OUT OF [...] 09/15/17 1108 PATH REV previously reported as: November kezia Performed By: #### L100.0100 #### [facility] [address] [place], [place], [address] COMPREHENSIVE METABOLIC Collected: 09/13/2017 Status: F Source: [facility] 9:56 PM [facility] REPOSITORY Order Comment: 'TROP' Serial specimen #1, [...] GAP Performed By: #### L500.4050, L501.4010 #### [facility] [address] [facility] [address] [place], [place], [address] TROPONIN-I Collected: 09/13/2017 Status: F Source: BOSS 9:56 PM [facility] REPOSITORY Order Comment: 'TROP' Serial specimen #1, #2, #3, or #4: 1 TYPE CODE TESTS RESULT OUT OF RANGE REFERENCE UNITS LAB L501.4010 <0.06 ng/mL Normal < 0.02 TROPONIN-I Result Comment: TROPONIN-I EXPECTED VALUES <0.05 NEGATIVE 0.06 - 0.59 AT RISK OF PA > OR = 0.60 SUGGEST PA Performed By: #### L500.4050, L501.4010 #### [facility] [address] [place], [address] TRIGLYCERIDES Collected: 09/13/2017 Status: F Source: BOSS 9:56 PM [facility] REPOSITORY TYPE CODE TESTS RESULT OUT OF RANGE REFERENCE UNITS LAB L501.5000 mg/dL Normal TRIG 147 Result Comment: The drugs N-Acetylcysteine and Metamizole may falsely depress this assay. Serum Triglycerides Reference Interval Normal <150 mg/dL Borderline high 150 - 199 mg/dL High 200 - 499 mg/dL Very High > or = 500 mg/dL Performed By: #### L501.5000, L501.5600 #### [facility] [address] [place], [address] POTASSIUM Collected: 09/13/2017 Status: F Source: BOSS 9:56 PM [facility] REPOSITORY TYPE CODE TESTS RESULT OUT OF RANGE REFERENCE UNITS LAB L501.5600 3.5-5.1 mmol/L High K 5.7 Result Comment: Moderate Hemolysis, Result may be falsely increased. Performed By: #### L501.5000, L501.5600 #### [facility] [address] [facility] [place], [address] EMERGENCY DEPARTMENT Observed: 09/12/2017 Status: F Source: BOSS SUMMARY 8:08 PM [facility] REPOSITORY [facility] Medical Records Department [address] [facility] [place] [address] Emergency Department Summary 09/12/17 1653 MR#: [id number] Acct: [id number] Name: LUIZA MAY Rep #: [id number] : 1955 61 From: Darrick Mccoy PCP: Joy Cohn MD Status: REG ER [...] 3. Dehydration This note was generated with Wobeek dictation software. It may contain incorrect words, [...] problems, contact your Primary Care Provider. Call [facility] ([phone]) or report to the closest Emergency Room. Call 911 if necessary. 09/12/172007 <Electronically signed by Darrick Mccoy> Date Darrick Mccoy Cosigner Signature (If Indicated): Date CC: Joy Cohn MD URINALYSIS, COMPLETE Collected: 09/12/2017 Status: F Source: FREDA 5:55 PM [facility] REPOSITORY Order Comment: How was Urine Obtained? MEASUREMENT TECHNICIAN TO SPECIFY TYPE CODE TESTS RESULT OUT [...] 50-100 SEEN Performed By: #### L400.0001 #### [facility] [address] [place], [address] BEDSIDE GLUCOSE Collected: 09/12/2017 Status: F Source: FREDA 5:14 PM [facility] REPOSITORY TYPE CODE TESTS RESULT OUT OF REFERENCE UNITS RANGE LAB L501.080 70-110 mg/dL High BEDSIDE GLU 127 Result Comment: MANAGEMENT OF PATIENT CARE PER NURSING PROTOCOL Performed By: #### L501.080 #### [place] [facility] Point of Care [address] [place] [address] CBC W/DIFF, AUTOMATED Collected: 09/12/2017 Status: F Source: BOSS 4:55 PM [facility] REPOSITORY TYPE CODE TESTS RESULT OUT OF [...] Lymph 1.64 Performed By: #### L100.0100 #### [facility] [address] [place], [place], [address] PROTHROMBIN TIME W/INR Collected: 09/12/2017 Status: F Source: BOSS 4:55 PM [facility] REPOSITORY TYPE CODE TESTS RESULT OUT OF RANGE REFERENCE UNITS LAB L300.4150 11.7-14.9 SECONDS Normal PROTIME 13.8 LAB L300.4200 Normal INR 1.1 Performed By: #### L300.3900, L300.4310 #### [facility] [address] [facility] [place], [address] PARTIAL THROMBOPLAST Collected: 09/12/2017 Status: F Source: [facility] 4:55 PM [facility] REPOSITORY TYPE CODE TESTS RESULT OUT OF RANGE REFERENCE UNITS LAB L300.4310 24.1-36.2 Seconds Normal PTT 28.7 Performed By: #### L300.3900, L300.4310 #### [facility] [address] [facility] [address] [facility] [address] COMPREHENSIVE METABOLIC Collected: 09/12/2017 Status: F Source: BOSS PROFIL 4:55 PM [facility] REPOSITORY TYPE CODE TESTS RESULT OUT OF [...] GAP 3 Performed By: #### L500.4050 #### [facility] [address] [facility] [place], [address] CHEST PA AND LATERAL Observed: 09/12/2017 Status: F Source: BOSS 4:53 PM [facility] REPOSITORY [facility] Imaging Services [address] [place] [address] Chest PA and Lateral MR#: [id number] Acct: [id number] Name: LUIZA MAY Rep #: [id number] : 1955 F 61 From: James Jj MD PCP: Joy Cohn MD Status: REG ER Study: Chest PA and Lateral Date of Exam: 09/12/17 Exam# [id number] Ordering Dr: Darrick Mckeon DO STUDY: X-RAY CHEST REASON FOR EXAM: Female, 61 years old. Confusion TECHNIQUE: PA and lateral views of the chest. COMPARISON: Previous study of February 07, 2017 FINDINGS: laboratory monitor leads are present. The lungs are clear [...] , CC: Joy Cohn MD; Darrick Mckeon Senior Cost Estimator: Signed BRAIN/HEAD WITHOUT Observed: 09/12/2017 Status: F Source: BOSS CONTRAST 4:53 PM [facility] REPOSITORY [facility] Imaging Services [address] [place] [address] Brain/Head without Contrast MR#: [id number] Acct: [id number] Name: LUIZA MAY Rep #: [id number] : 1955 F 61 From: James Jj MD PCP: Joy Cohn MD Status: REG ER Study: Brain/Head without Contrast Date of Exam: 09/12/17 Exam# [id number] Ordering Dr: Darrick Mckeon DO STUDY: CT [...] , CC: Joy Cohn MD; Darrick Mckeon Senior Cost Estimator: Signed BASIC METABOLIC PANL Collected: 08/19/2017 Status: F Source: [place]OG[place] 10:30 AM [facility] REPOSITORY TYPE CODE TESTS RESULT OUT OF REFERENCE UNITS RANGE LAB GLU 74-99 mg/dL Glucose 88 Result Comment: The [place] [employer] Association (ADA) provides guidance for cutoff [...] Standards of Medical Care in Diabetes 2016, [place] [employer] Association. Diabetes Care. 2016.39(Suppl 1). LAB [...] actual GFR. Performed By: #### BMP #### [facility] [address] [address] PROGRESS Observed: 08/19/2017 Status: COMPLETED Source: ROGERS 9:50 AM [facility] OTHER CAMPUS REPOSITORY HNO ID: [id number] Author: Dylon Mooney Service: (none) Author Type: [...] met Beta marilyn for ASHD with prior PA or prior LVEF<40 (NQF 0070) - met [...] treatment plan. This note was generated using Wobeek voice recognition system, and there may be [...] MD CNOV Observed: 08/19/2017 Status: COMPLETED Source: ROGERS 9:30 AM [facility] OTHER [place] REPOSITORY Office Visit (AGCARDWST) LUIZA MAY ([id number]) 1955 F Date Time Provider Department 08/19/17 9:30 AM DYLON MOONEY AGCARDWSLashonda During your visit today, we recorded the [...] met Beta marilyn for ASHD with prior PA or prior LVEFANDlt;40 (NQF 0070) - met [...] treatment plan. This note was generated using Wobeek voice recognition system, and there may be [...] August 19, 2017 9:50 AM CC: Joy D MD Dylon Cohn MD 08/19/2017 9:51 AM Signed LIFESTYLE CHANGE A healthy lifestyle is the most important component of your overall treatment plan. Please give serious thought to the following areas and commit to making shelter changes. EAT A WHOLE FOOD, PLANT BASED [...] in your area. Referring Provider: JOY COHN [[id number]] Allergies As of Date: 08/19/2017 Noted Allergy Reaction ENTEX (PHENYLEPHRINE-GUAIFENESIN) 04/22/2005 5 - Intolerance TETANUS VACCINES AND TOXOID 04/22/2005 7 - Swelling TRAMADOL 07/17/2016 4 - Hives Date Reviewed: 08/19/2017 Reviewed by: Rachel Moss - Fully Assessed Reason for Visit: Follow Up [171] Primary Visit Diagnosis:Cardiomyopathy, nonischemic (HCC) [I42.8] Other Visit Diagnosis:Hypertension, essential [I10] Order(s):ECG B/O W INTERP (MED OFFICE) [ECG06] Order #: [id number] BASIC METABOLIC PNL [SQBMP] Order #: [id number] FUTURE Prescriptions as of 08/19/2017 Sig: ZOLPIDEM [...] the following areas and commit to making intermediate teacher changes. EAT A WHOLE FOOD, PLANT BASED [...] 08/19/17 PROGRESS Observed: 08/04/2017 Status: COMPLETED Source: ROG[place] 9:01 AM [facility] REPOSITORY HNO ID: [id number] Author: Joy Cohn Service: (none) Author Type: [...] and [address] Mooney, Crib Attendant. Is taking Aldactone 25 mg daily, Coreg 12.5 mg BID and Lisinopril 10 mg daily. Checks BP at home, with reading around 120/70. No chest pains, dizziness, or SOB. COPD: does not follow with a Marketing Content Specialist. Is taking Proair PRN. Feels her breathing [...] low cervical - COLONOSCOP W/ OR W/O [facility] SPEC 06/09/2006 Colonoscopy - COLONOSCOP W/ OR W/O [facility] SPEC 08/20/2016 Colonoscopy mac - LAPAROSCOPIC CHOLEYCYSTECTOMY 1992 Cholecystectomy, lap - PREOP PLACEMENT NEEDLE LOC - STEREOTACTIC CORE BIOPSY 10/25/07 lsft Family History FAMILY HISTORY Problem Relation Age of Onset - Cancer Mother R/T LUNG CANCER - Heart Father PA - Cancer Sister LUNG Patient Allergies ALLERGIES [...] Continue current medications. Continue with Dr. Mooney, Crib Attendant Follow up in 3 months. Joy Cohn MD The documentation for this note was completed by Francesca Nayak Ma acting as scribe for Joy Cohn MD. August 04, 2017 9:04 AM. ALLERGIES ALLERGIES DATE TYPE / CODE NAME / CODE REACTION SEVERITY SOURCE 07/20/2018 Drug tetanus and Hives Unknown [place] All[facility]/416 diphtheria [facility] 859512(SNOM toxoids/[id number] Hospital ED CT) 14(RXNORM) Repository 07/17/2016 DRUG TRAMADOL HIVES [facility] INGREDI/419 Other [facility] 893461(SNOM Repository ED CT) 04/22/2005 DRUG/942007 PHENYLEPHRINE- INTOLERANCE [facility] 003(SNOMED AIFENESIN Other [facility]) Repository 04/22/2005 Drug TETANUS VACCINES SWELLING [facility] Class/18768 AND TOXOID Other [facility] 1003(SNOMED Repository CT) NG/67608357 PHENYLEPHRINE- [facility] 6(SNOMED AIFENESIN [facility]) Repository NG/60067401 TETANUS VACCINES [facility] 6(SNOMED AND TOXOID [facility] CT) Repository NG/21297858 TRAMADOL [facility] 6(SNOMED Health System CT) Repository ENCOUNTERS ENCOUNTERS ADMIT/DISCHARGE ACCOUNT NUMBER ADMITTING ENCOUNTER LOCATION SOURCE CLASS 07/22/2018 [id number] Ambulatory [facility] ding:LAB Repository 07/22/2018/07/22/19 [id number] Ambulatory BMSBuilding: [place] 19 BMS.[facility] Repository 07/20/2018/07/20/19 [id number] Emergency [address] ding:ED Repository 06/15/2018/06/15/20 [id number] Ambulatory BMSBuilding: [place] 18 BMS.[facility] Repository 05/10/2018/05/10/20 [id number] Ambulatory BMSBuilding: [place] 18 BMS.[facility] Repository 04/13/2018 [id number] Ambulatory [facility] ding:LAB Repository 04/13/2018/04/13/20 [id number] Ambulatory BMSBuilding: [place] 18 BMS.[facility] Repository 04/12/2018/04/12/20 [id number] Ambulatory BMSBuilding: [place] 18 BMS.[facility] Repository 02/25/2018 [id number] Ambulatory [facility] MEDICAL Repository CENTERBuildi ng:CAGWS 02/16/2018/02/17/20 [id number] Ambulatory BMSBuilding: [place] 18 BMS.[facility] Repository 02/01/2018 [id number] Ambulatory [facility] ding:SL Repository 01/18/2018 [id number] Ambulatory [facility] ding:OPBD Repository 01/12/2018/01/13/20 [id number] Ambulatory BMSBuilding: [place] 18 BMS.[facility] Repository 12/30/2017/12/31/19 [id number] Ambulatory BMSBuilding: [place] 18 BMS.[facility] Repository 12/13/2017 [id number] Ambulatory BMSBuilding: [facility] Repository 12/08/2017 [id number] Ambulatory [facility] ding:PSN Repository 11/30/2017 [id number] Ambulatory [facility] ding:PSN Repository 11/30/2017 [id number] Ambulatory BMSBuilding: [facility] Repository 11/18/2017/11/19/19 [id number] Ambulatory BMSBuilding: [place] 18 BMS.[facility] Repository 11/18/2017 [id number] Ambulatory [facility] ding:LAB Repository 11/17/2017/11/18/19 [id number] Ambulatory BMSBuilding: [place] 18 BMS.[facility] Repository 10/25/2017 [id number] Ambulatory [facility] ding:LAB Repository 10/20/2017 [id number] Ambulatory [facility] ding:PSN Repository 10/18/2017/10/19/19 [id number] Ambulatory BMSBuilding: [place] 18 BMS.[facility] Repository 10/12/2017 [id number] Ambulatory [facility] ding:SL Repository 09/30/2017/10/01/19 [id number] Ambulatory BMSBuilding: [place] 18 BMS.[facility] Repository 09/24/2017/09/25/19 [id number] Emergency [address] ding:ED Repository 09/15/2017/09/18/19 [id number] Ambulatory BMSBuilding: [address] Repository 09/14/2017 [id number] Ambulatory BMSBuilding: [place] BMS.On license of [facility] Repository 09/14/2017/09/18/19 [id number] Jadon Fagan Inpatient [address] ding:PCURoom Repository : [id number]: 1 09/14/2017 [id number] Jadon Fagan Ambulatory BMSBuilding: [place] BMS.CF.[facility] Repository 09/14/2017 [id number] Jadon Fagan Ambulatory BMSBuilding: [place] BMS.CF.[facility] Repository 09/14/2017 [id number] Jadon Fagan Ambulatory BMSBuilding: [facility] Repository 09/14/2017 [id number] Jadon Fagan Ambulatory BMSBuilding: [place] BMS.CF.[facility] Repository 09/14/2017 [id number] [facility]/2017 [id number] Jadon Fagna Ambulatory BMSBuilding: [place] BMS.CF.[facility] Repository 09/14/2017 [id number] Jadon Fagan Ambulatory BMSBuilding: [place] BMS.On license of [facility] Repository 09/14/2017 [id number] Jadon Fagan Ambulatory BMSBuilding: [place] BMS.On license of [facility] Repository 09/14/2017 [id number] Jadon Fagan Ambulatory BMSBuilding: [place] BMS.On license of [facility] Repository 09/12/2017/09/13/19 [id number] Emergency [address] ding:ED Repository 08/19/2017/08/19/19 [id number] Ambulatory [address] [place] Repository 08/19/2017/08/19/19 [id number] Ambulatory [address] Other [place] Repository 08/19/2017/08/19/19 [id number] Ambulatory [address] MEDICAL Repository CENTERBuildi ng:CAGWS 08/04/2017/08/04/19 [id number] Ambulatory [address] Repository PAYERS PAYERS ENCOUNTER GUARANTOR PAYER SUBSCRIBER SOURCE 07/22/2018 LUIZA Brown Primary LUIZA Brown [place] [id number] N Insurance:MEDICARE BECKLERDOB: Community [place], PART A [facility] [id number] [place] [address]Nwa: Number: Repository [id number] (HP) Date:2018-07-22 07/22/2018 Secondary NOT GIVENUNK [place] Insurance:SELF PAY [facility] Number: Effective Repository Date:2018-07-22 07/22/2018 LUIZA Brown Primary LUIZA Brown [place] [id number] N Insurance:MEDICARE BECKLERDOB: Community [place], PART A [facility] [id number] [facility]amos Medical Center [address]Rqy: Number: Repository [id number] (HP) Date:2018-04-13 07/22/2018 Secondary NOT GIVENUNK [place] Insurance:SELF PAY [facility] Number: Effective Repository Date:2018-07-18 07/20/2018 LUIZA S Primary LUIZA Brown [place] [id number] N Insurance:MEDICARE BECKLERDOB: Community [place], PART A [facility] [id number] Alamos Medical Center [address]Trf: Number: Repository [id number] (HP) Date:2018-07-20 07/20/2018 Secondary NOT GIVENUNK [place] Insurance:SELF PAY [facility] Number: Effective Repository Date:2018-07-20 06/15/2018 LUIZA S Primary LUIZA Brown [place] [id number] N Insurance:MEDICARE BECKLERDOB: Community [place], PART A [facility] [id number] Hospital [place] [address]Isu: Number: Repository [id number] (HP) Date:2018-02-16 06/15/2018 Secondary NOT GIVENUNK [place] Insurance:SELF PAY [facility] Number: Effective Repository Date:2018-06-15 05/10/2018 LUIZA S Primary LUIZA S [place] [id number] N Insurance:MEDICARE BECKLERDOB: Community [place], PART A [facility] [id number] Alamos Medical Center [address]Rfc: Number: Repository [id number] () Date:2018-04-12 05/10/2018 Secondary NOT GIVENUNK [place] Insurance:SELF PAY [facility] Number: Effective Repository Date:2018-05-02 04/13/2018 LUIZA S Primary LUIZA S [place] [id number] N Insurance:MEDICARE BECKLERDOB: [facility] [place], PART A [facility] [id number] Alamos Medical Center [address]Icg: Number: Repository [id number] () Date:2018-04-13 04/13/2018 Secondary NOT GIVENUNK [place] Insurance:SELF PAY [facility] Number: Effective Repository Date:2018-04-13 04/13/2018 LUIZA S Primary LUIZA S [place] [id number] N Insurance:MEDICARE BECKLERDOB: [facility] [place], PART A [facility] [id number] Alamos Medical Center [address]Zvw: Number: Repository [id number] () Date:2018-01-12 04/13/2018 Secondary NOT GIVENUNK [place] Insurance:SELF PAY [facility] Number: Effective Repository Date:2018-04-13 04/12/2018 LUIZA S Primary LUIZA S [place] [id number] N Insurance:MEDICARE BECKLERDOB[facility] [place] [id number] Alamos Medical Center [address]Ylc: Number: Repository [id number] () Date:2017-12-30 04/12/2018 Secondary NOT GIVENUNK [place] Insurance:SELF PAY [facility] Number: Effective Repository Date:2018-04-05 02/25/2018 LUIZA S Primary LUIZA S [facility] BECKLERDOB: Insurance:MEDICARE A BECKLERDOB: [facility] N AND BPolicy Number: [id number] Repository [facility] [id number] [place] [address]Oiz: Date: () 02/16/2018 LUIZA S Primary LUIZA S [place] [id number] N Insurance:MEDICARE BECKLERDOB: [facility] [place], PART A [facility] [id number] Alamos Medical Center [address]Muy: Number: Repository [id number] () Date:2018-01-19 02/16/2018 Secondary NOT GIVENUNK [place] Insurance:SELF PAY [facility] Number: Effective Repository Date:2018-02-09 02/01/2018 LUIZA S Primary LUIZA S [place] [id number] N Insurance:MEDICARE BECKLERDOB: [facility] [place], PART A [facility] [id number] Alamos Medical Center [address]Juy: Number: Repository [id number] () Date:2017-11-18 02/01/2018 Secondary LUIZA S [place] Insurance:MEDICAIDPol BECKLERDOB: [facility] Number: Effective [id number] Hospital Date:2017-11-18 Repository 02/01/2018 Tertiary NOT GIVENUNK [place] Insurance:SELF PAY [facility] Number: Effective Repository Date:2017-11-18 01/18/2018 LUIZA S Primary LUIZA S [place] [id number] N Insurance:MEDICARE [facility]ECKLERDOB[facility] [id number] Alamos Medical Center [address]Tfa: Number: Repository [id number] () Date:2018-01-17 01/18/2018 Secondary NOT GIVENUNK [place] Insurance:SELF PAY [facility] Number: Effective Repository Date:2018-01-17 01/12/2018 LUIZA S Primary LUIZA S [place] [id number] N Insurance:MEDICARE BECKLERDOB: [facility] [place], [facility] [id number] Alamos Medical Center [address]Fbm: Number: Repository [id number] (HP) Date:2017-11-17 01/12/2018 Secondary NOT GIVENUNK [place] Insurance:SELF PAY [facility] Number: Effective Repository Date:2017-12-22 12/30/2017 LUIZA S Primary LUIZA S [place] [id number] N Insurance:MEDICARE BECKLERDOB: [facility], PART A [facility] [id number] Alamos Medical Center [address]Baw: Number: Repository [id number] (HP) Date:2017-11-09 12/30/2017 Secondary NOT GIVENUNK [place] Insurance:SELF PAY [facility] Number: Effective Repository Date:2017-12-28 12/13/2017 LUIZA S Primary LUIZA S [place] [id number] N Insurance:MEDICARE BECKLERDOB: [facility], PART A [facility] [id number] Alamos Medical Center [address]Gai: Number: Repository [id number] (HP) Date:2017-11-18 12/13/2017 Secondary NOT GIVENUNK [place] Insurance:SELF PAY [facility] Number: Effective Repository Date:2017-12-13 12/08/2017 LUIZA S Primary LUIZA S [place] [id number] N Insurance:MEDICARE BECKLERDOB: [facility], PART A [facility] [id number] Alamos Medical Center [address]Glp: Number: Repository [id number] (HP) Date:2017-11-18 12/08/2017 Secondary NOT GIVENUNK [place] Insurance:SELF PAY [facility] Number: Effective Repository Date:2017-11-18 11/30/2017 LUIZA S Primary LUIZA S [place] [id number] N Insurance:MEDICARE BECKLERDOB[facility] [id number] Alamos Medical Center [address]Qad: Number: Repository [id number] (HP) Date:2017-11-18 11/30/2017 Secondary NOT GIVENUNK [place] Insurance:SELF PAY [facility] Number: Effective Repository Date:2017-11-18 11/30/2017 LUIZA S Primary LUIZA Brown [place] [id number] N Insurance:MEDICARE BECKLERDOB: Community [place], PART A [facility] [id number] Alamos Medical Center [address]Wnm: Number: Repository [id number] () Date:2017-11-18 11/30/2017 Secondary NOT GIVENUNK [place] Insurance:SELF PAY [facility] Number: Effective Repository Date:2017-11-30 11/18/2017 LUIZA S Primary LUIZA S [place] [id number] N Insurance:MEDICARE BECKLERDOB: Community [place], PART A [facility] [id number] Alamos Medical Center [address]Yhn: Number: Repository [id number] () Date:2017-11-15 11/18/2017 Secondary NOT GIVENUNK [place] Insurance:SELF PAY [facility] Number: Effective Repository Date:2017-11-16 11/18/2017 LUIZA S Primary LUIZA S [place] [id number] N Insurance:MEDICARE BECKLERDOB: Community [place], PART A [facility] [id number] Alamos Medical Center [address]Hqr: Number: Repository [id number] () Date:2017-11-18 11/18/2017 Secondary NOT GIVENUNK [place] Insurance:SELF PAY [facility] Number: Effective Repository Date:2017-11-18 11/17/2017 LUIZA S Primary LUIZA S [place] [id number] N Insurance:MEDICARE BECKLERDOB: [facility] [place], PART A [facility] [id number] Alamos Medical Center [address]Zrt: Number: Repository [id number] (HP) Date:2017-10-18 11/17/2017 Secondary NOT GIVENUNK [place] Insurance:SELF PAY [facility] Number: Effective Repository Date:2017-11-17 10/25/2017 LUIZA S Primary LUIZA S [place] [id number] N Insurance:MEDICARE BECKLERDOB: Community [place], PART A [facility] [id number] Alamos Medical Center [address]Ibq: Number: Repository [id number] () Date:2017-10-25 10/25/2017 Secondary NOT GIVENUNK [place] Insurance:SELF PAY [facility] Number: Effective Repository Date:2017-10-25 10/20/2017 LUIZA S Primary LUIZA S [place] [id number] N Insurance:MEDICARE BECKLERDOB: Community [place], PART A [facility] [id number] Alamos Medical Center [address]Ald: Number: Repository [id number] () Date:2017-09-30 10/20/2017 Secondary NOT GIVENUNK [place] Insurance:SELF PAY [facility] Number: Effective Repository Date:2017-09-30 10/18/2017 LUIZA S Primary LUIZA S [place] [id number] N Insurance:MEDICARE BECKLERDOB: [facility] [place], PART A [facility] [id number] Alamos Medical Center [address]Mzp: Number: Repository [id number] () Date:2017-09-30 10/18/2017 Secondary NOT GIVENUNK [place] Insurance:SELF PAY [facility] Number: Effective Repository Date:2017-10-18 10/12/2017 LUIZA S Primary LUIZA S [place] [id number] N Insurance:MEDICARE BECKLERDOB: Community [place], PART A [facility] [id number] Alamos Medical Center [address]Bzl: Number: Repository [id number] () Date:2017-09-30 10/12/2017 Secondary NOT GIVENUNK [place] Insurance:SELF PAY [facility] Number: Effective Repository Date:2017-09-30 09/30/2017 LUIZA S Primary LUIZA S [place] [id number] N Insurance:MEDICARE BECKLERDOB: [facility] [place], PART A [facility] [id number] Alamos Medical Center [address]Hnm: Number: Repository [id number] (HP) Date:2017-09-20 09/30/2017 Secondary NOT GIVENUNK [place] Insurance:SELF PAY [facility] Number: Effective Repository Date:2017-09-28 09/24/2017 Luiza S Primary Luiza S [place] [id number] N Insurance:MEDICARE BecklerDOB[facility] [id number] Alamos Medical Center [address]Btj: Number: Repository [id number] (HP) Date:2017-09-24 09/24/2017 Secondary NOT GIVENUNK [place] Insurance:SELF PAY [facility] Number: Effective Repository Date:2017-09-24 09/15/2017 LUIZA S Primary LUIZA S [place] [id number] N Insurance:MEDICARE BECKLERDOB: [facility] [place], PART A [facility] [id number] Alamos Medical Center [address]Azj: Number: Repository [id number] (HP) Date:2017-09-13 09/15/2017 Secondary NOT GIVENUNK [place] Insurance:SELF PAY [facility] Number: Effective Repository Date:2017-09-15 09/14/2017 LUIZA S Primary LUIZA S [place] [id number] N Insurance:MEDICARE BECKLERDOB: [facility] [id number] Alamos Medical Center [address]Aew: Number: Repository [id number] (HP) Date:2017-09-13 09/14/2017 Secondary NOT GIVENUNK [place] Insurance:SELF PAY [facility] Number: Effective Repository Date:2017-09-14 09/14/2017 Luiza S Primary Luiza S [place] [id number] N Insurance:MEDICARE BecklerDOB: [facility] [address] [facility] [id number] Alamos Medical Center [address]Qyj: Number: Repository [id number] (HP) Date:2017-09-13 09/14/2017 Secondary NOT GIVENUNK [place] Insurance:SELF PAY [facility] Number: Effective Repository Date:2017-09-13 09/14/2017 LUIZA S Primary LUIZA Brown [place] [id number] N Insurance:MEDICARE BECKLERDOB: Community [place], PART A [facility] [id number] Alamos Medical Center [address]Gvf: Number: Repository [id number] () Date:2017-09-13 09/14/2017 Secondary NOT GIVENUNK [place] Insurance:SELF PAY [facility] Number: Effective Repository Date:2017-09-14 09/14/2017 LUIZA S Primary LUIZA S [place] [id number] N Insurance:MEDICARE BECKLERDOB: Community [place], PART A [facility] [id number] Alamos Medical Center [address]Thn: Number: Repository [id number] () Date:2017-09-13 09/14/2017 Secondary NOT GIVENUNK [place] Insurance:SELF PAY [facility] Number: Effective Repository Date:2017-09-14 09/14/2017 Luiza S Primary Luiza S [place] [id number] N Insurance:MEDICARE BecklerDOB: Community [address], [place] [facility] [id number] Alamos Medical Center [address]Uxj: Number: Repository [id number] () Date:2017-09-13 09/14/2017 Secondary NOT GIVENUNK [place] Insurance:SELF PAY [facility] Number: Effective Repository Date:2017-09-14 09/14/2017 LUIZA S Primary LUIZA S [place] [id number] N Insurance:MEDICARE BECKLERDOB: [facility] [place], PART A [facility] [id number] Alamos Medical Center [address]Aqc: Number: Repository [id number] () Date:2017-09-13 09/14/2017 Secondary NOT GIVENUNK [place] Insurance:SELF PAY [facility] Number: Effective Repository Date:2017-09-14 09/14/2017 Luiza S Primary Luiza S [place] [id number] N Insurance:MEDICARE BecklerDOB: Community [address], [place] [facility] [id number] Alamos Medical Center [address]Vjs: Number: Repository [id number] () Date:2017-09-13 09/14/2017 Secondary NOT GIVENUNK [place] Insurance:SELF PAY [facility] Number: Effective Repository Date:2017-09-14 09/14/2017 LUIZA S Primary LUIZA S [place] [id number] N Insurance:MEDICARE BECKLERDOB: Community [place], PART A [facility] [id number] Alamos Medical Center [address]Sca: Number: Repository [id number] () Date:2017-09-13 09/14/2017 Secondary NOT GIVENUNK [place] Insurance:SELF PAY [facility] Number: Effective Repository Date:2017-09-14 09/14/2017 LUIZA S Primary LUIZA S [place] [id number] N Insurance:MEDICARE BECKLERDOB: [facility] [place], PART A [facility] [id number] Alamos Medical Center [address]Sli: Number: Repository [id number] () Date:2017-09-13 09/14/2017 Secondary NOT GIVENUNK [place] Insurance:SELF PAY [facility] Number: Effective Repository Date:2017-09-14 09/14/2017 LUIZA S Primary LUIZA S [place] [id number] N Insurance:MEDICARE BECKLERDOB: Community [place], PART A [facility] [id number] Alamos Medical Center [address]Ozr: Number: Repository [id number] () Date:2017-09-13 09/14/2017 Secondary NOT GIVENUNK [place] Insurance:SELF PAY [facility] Number: Effective Repository Date:2017-09-14 09/14/2017 LUIZA S Primary LUIZA S [place] [id number] N Insurance:MEDICARE BECKLERDOB: [facility] [place], PART A [facility] [id number] Alamos Medical Center [address]Yva: Number: Repository [id number] (HP) Date:2017-09-13 09/14/2017 Secondary NOT GIVENUNK [place] Insurance:SELF PAY [facility] Number: Effective Repository Date:2017-09-14 09/12/2017 Luiza S Primary Luiza S [place] [id number] N Insurance:MEDICARE BecklerDOB: [facility] [place], [place] A [facility] [id number] Alamos Medical Center [address]Ser: Number: Repository [id number] () Date:2017-09-12 09/12/2017 Secondary NOT GIVENUNK [place] Insurance:SELF PAY [facility] Number: Effective Repository Date:2017-09-12 08/19/2017 LUIZA S Primary LUIZA S [facility] BECKLERDOB: Insurance:MEDICARE A [facility]KWH[facility] [id number] N AND BPolicy Number: [id number] Repository [place], [id number] [place] [address]Grx: Date: ()
== END ==
PROVIDERS: Family Provider Internal Medicine; PCP Internal Medicine; Referring Provider Internal Medicine; Visit Provider Internal Medicine
DX: I10 Essential (primary) hypertension (principal); R25.2 Cramp and spasm
CPT/HCPCS: 36415; 80048; 83735

== ENCOUNTER 2018-08-16 12:01 | Emergency (ER) | payer MEDICARE, MEDICAID, SELFPAY ==
[2018-08-16 11:24] VITALS: BMI 24.7
[2018-08-16 12:04] VITALS: BP 103/52; PULSE 64; RESP 18; TEMP 36.1; O2SAT 97; BMI 23.9
[2018-08-16 12:14] VITALS: PULSE 68; RESP 15; O2SAT 98
[2018-08-16 12:25] VITALS: O2SAT 98
[2018-08-16 12:35] LABS: Absolute Lymphocyte Count 1.92 X10^3/ul (0.83-4.51); Absolute Neutrophil Count 3.6 X10^3/uL (2.0-7.7); Basophil# 0.03 X10^3/uL; Basophil% 0.5 % (0-1); Eosinophil# 0.25 X10^3/uL; Hematocrit 40.7 % (37-47); Hemoglobin 11.9 g/dl (12.0-15.0); Lymphocyte # 1.92 X10^3/ul (4.0); Lymphocyte % 30.7 % (19-41); Mean Corp Hgb Conc 29.2 g/gl (32-36); Mean Corpuscular Hgb 28.7 pg (27.0-32.0); Mean Corpuscular Volume 98.1 fL (81-99); Mean Platelet Vol. 10.4 fl (6.2-12.0); Monocyte# 0.49 X10^3/uL; Monocyte% 7.8 % (0-10); Neutrophil # 3.55 X10^3/uL (2.7-7.7); Neutrophil % 56.8 % (47-70); Platelet Count 178 K/mm3 (150-450); RBC Distribution Width CV 13.1 % (11.6-14.6); RBC Distribution Width SD 46.9 fl (35.1-43.9); Red Blood Count 4.15 M/mm3 (4.2-5.4); White Blood Count 6.3 K/mm3 (4.4-11.0)
[2018-08-16 12:37] LABS: POSITIVE COUNT NO; POSITIVE DIFFERENTIAL NO; POSITIVE MORPHOLOGY NO
[2018-08-16 12:48] LABS: Anion Gap 2 (5-15); BUN 14 mg/dL (7-18); BUN/Creat Ratio 17.7 RATIO (10-20); Calcium,Total 8.4 mg/dL (8.5-10.1); Chloride 102 mmol/L (98-107); Creatinine, Serum 0.79 mg/dL (0.55-1.02); EST Glomerular Filtration Rate 78 mL/min (>60); Est Glom Filt Rate - Afr Amer 94 mL/min (>60); Glucose 89 mg/dL (74-106); Potassium 4.5 mmol/L (3.5-5.1); Sodium Level 141 mmol/L (136-145)
[2018-08-16 12:52] VITALS: O2SAT 96
--- NOTE | 2018-08-16 13:05 | ED.VISSUMM ---
- ER Visit Summary Date of Service: 08/16/18 Chief Complaint: Patient sent to the emergency room for evaluation from PCPs office History of Present Illness: The patient is a 62 F who has multiple significant problems. Most important problem is chronic respiratory failure with hypoxia requiring oxygen and noncompliance. She had a pulse ox of 70% on room air. She was ambulated with a drop to 68%. Patient also complained of headache and dizziness, which she was not able to define. Her description was not consistent with vertigo. She denied orthostatic symptoms. She was not wearing her oxygen at home. Apparently she is not compliant with her oxygen. Review of systems remarkable for dyspnea, dyspnea on exertion, headache, weakness and dizziness. Review of systems otherwise normal. Past medical history of CVA, HI, CHF, hypertension, hypercholesterolemia, obstructive sleep apnea, DVT left lower extremity, GI bleed and PERS. Physical Examination: Vital signs noted and she is not hypoxic on 2 L of oxygen. She is slightly cachectic. Head is atraumatic normocephalic. Pupils are equal round reactive. Extraocular muscles are intact. TMs are pearly white with landmarks noted. Nares patent with no drainage. Posterior pharynx without erythema or exudate. Uvula is midline. There is no dysphonia or dysphasia. Trachea is midline. There is no stridor with auscultation of the neck. Heart is regular without murmur, gallop or rub. S1 and S2 are normal. Lungs are clear to auscultation with poor movement of air bilaterally. Breath sounds were noted bilaterally. Abdomen soft nontender. There is no asymmetry, swelling, discoloration, leg vein distention, palpable cords or tenderness along the distribution of the deep venous system. Patient is alert and oriented ?3. Motor is 5 over 5. Sensory is intact. DTRs are symmetric with no clonus or Babinski sign. Cranial 2 through 12 are intact. Cerebellar testing is normal. Test Results: Hemoglobin 11.9 and baseline. CO2 is elevated at 37 and consistent with chronic respiratory failure secondary to COPD. Emergency Department Course and Treatment: Patient was placed on oxygen and screening labs were obtained. Since her symptoms resolved with oxygen it is my professional medical opinion this is secondary to noncompliance Treatment Plan: Oxygen to be worn continuously Disposition: Discharged home in stable improved condition Impression: Hypoxia secondary to noncompliance 2. History of respiratory failure with chronic CO2 retention and hypoxia secondary to COPD 3. Dyspnea and dizziness secondary to hypoxia, resolved This note was generated with [employer] dictation software. It may contain incorrect words, spelling, and punctuation that were not noted in review of the chart prior to signing ED Disposition - Plan for ED Patient: Disposition: Home or Assisted Living Instructions: ED Screening Exam Medical Nonurgent Referrals: Glenn Ulloa MD [Primary Care Provider] - As Needed
[2018-08-16 13:15] VITALS: BP 109/68; PULSE 71; RESP 20; O2SAT 100
--- NOTE | 2018-08-16 13:25 | ED.RN ---
THIS RN IN TO DISCHARGE PT. PT'S SPOUSE HAS NOT BROUGHT HOME PORTABLE O2 INSTRUCTED. PT REMINDED AND RE-EDUCATE DON NEED FOR CONTINUOUS O2. PT VOICES UNDERSTANDING, SPOUSE INSTRUCTED TO GET HOME O2, PT WILL WAIT AND REMAIN ON O2 IN ED UNTIL PORTABLE HOME TANK ARRIVES.
== END 2018-08-16 13:51 | disposition home or self-care (01) ==
PROVIDERS: Emergency Provider Emergency Medicine; Family Provider Internal Medicine; PCP Internal Medicine
DX: J96.11 Chronic respiratory failure with hypoxia (principal); J44.9 Chronic obstructive pulmonary disease, unspecified; Z91.19 Patient's noncompliance with other medical treatment and regimen; I11.0 Hypertensive heart disease with heart failure; I50.9 Heart failure, unspecified; I25.2 Old myocardial infarction; E78.00 Pure hypercholesterolemia, unspecified; G47.33 Obstructive sleep apnea (adult) (pediatric); Z79.82 Long term (current) use of aspirin; Z99.81 Dependence on supplemental oxygen; Z79.899 Other long term (current) drug therapy; Z86.73 Personal history of transient ischemic attack (TIA), and cerebral infarction without residual deficits; Z87.891 Personal history of nicotine dependence
CPT/HCPCS: 80048; 85025; 99282

== ENCOUNTER 2018-09-14 11:34 | Inpatient (IN) | payer MEDICARE, SELFPAY ==
[2018-08-23 10:52] VITALS: BMI 23.9
[2018-09-14] VITALS (27 sets, daily range): BP systolic 77–137; BP diastolic 38–97; PULSE 64–102; RESP 12–23; TEMP 36.8–36.9; O2SAT 85–100; BMI 25.4; BMI 25.5; BMI 24.7
--- NOTE | 2018-09-14 11:44 | EKG12_ITS ---
Test Reason : Blood Pressure : / mmHG Vent. Rate : 086 BPM Atrial Rate : 086 BPM P-R Int : 128 ms QRS Dur : 082 ms QT Int : 374 ms P-R-T Axes : 066 042 045 degrees QTc Int : 447 ms Normal sinus rhythm Normal ECG When compared with ECG of 24-SEP-2017 07:06, No significant change was found Confirmed by MOISES MENDES, LINDSEY ([id number]), food expeditor NICOLE ARANGO ([id number]) on 09/23/2018 9:46:38 AM Referred By: Tex Agee Confirmed By:LINDSEY DE LEON MD
--- NOTE | 2018-09-14 11:59 | ED.DCSUM_ITS ---
History of Present Illness Chief Complaint: Confusion Detail of Chief Complaint: Son called ambulance because of confusion Informant: Patient, Family, Traffic Reporter Limited by: - - Patient disoriented suspect secondary to hypoxia Onset: Today Context: - - Unknown Timing: Continuous Quality: Patient confused Location: From home Current Severity: Mild Maximum Severity: Moderate Worsened by: Unknown Relieved by: Nothing Associated Symptoms: Unknown Narrative: 62-year-old woman history of chronic CO2 retention and admission in August for hypoxia presents with cough and low oxygen level. Son called because of confusion. She is unable to give history. She believes she is 61 years old and the month is November. She does not know the day of the month or day of the week. She is no she is at a hospital. When asked why she was here she states she is having a heart attack and stroke . When asked what symptoms she responded I am having a heart attack and stroke . - Past Medical History (1) History of pneumonia Status: Resolved (2) Metabolic encephalopathy Status: Resolved (3) TIO (obstructive sleep apnea) Status: Chronic Comment: Unable to tolerate Pap therapy, discontinuing use (4) PRES (posterior reversible encephalopathy syndrome) Status: Resolved (5) Upper GI bleed Status: Resolved (6) Acid-base disorder, mixed Status: Chronic (7) Anxiety Status: Chronic (8) History of DVT of lower extremity Status: Chronic Comment: Rt lower extremity pinky vein (9) History of ETOH abuse Status: Chronic (10) History of non-ST elevation myocardial infarction (NSTEMI) Status: Resolved (11) History of stroke Status: Resolved Comment: Right occipital lobe and left posterior superior parietal lobe per CT;later determined as hemorrhagic per MRI developed NSTEMI shortly after but no intervention d/t GI bleed (12) Hyperlipidemia Status: Chronic (13) COPD (chronic obstructive pulmonary disease) Status: Chronic (14) Hemorrhagic cerebrovascular accident (CVA) Status: Resolved Past Medical History - Allergies and Home Meds Allergies/Adverse Reactions: Allergies tetanus and diphtheria toxoids [tetanus & diphtheria toxoids] Allergy (Verified 08/18/18 10:30) Hives Primary Care Physician: Glenn Ulloa MD [Primary Care Provider] - Prior records reviewed: Yes Surgical History: cholecystectomy, - - Lumpectomy Lives: With Family Smoking Status: Current every day smoker - Family History Maternal Family History: Family History (Last Reviewed 08/18/18 @ 10:31 by Skylar Geller) Sister Cancer Father Cancer Mother Cancer Family History: Reports: Cancer - Lung Paternal Family History: Family History (Last Reviewed 08/18/18 @ 10:31 by Skylar Geller) Sister Cancer Father Cancer Mother Cancer Family History: Reports: Cancer - Lung Sibling Family History: Family History (Last Reviewed 08/18/18 @ 10:31 by Skylar Geller) Sister Cancer Father Cancer Mother Cancer Family History: Reports: Cancer - lung Review of Systems ROS: Unable to Obtain - Patient is disoriented and does not answer questions that are asked including simple questions with yes no responses. Physical Exam Vital Signs/Narrative: Vital Signs Temp Pulse Resp BP Pulse Ox 09/14/18 11:43 98.3 F 80 17 132/97 H 97 09/14/18 11:36 98.3 F 87 21 H 132/97 H 85 Inital Vital Signs reviewed: Yes General: Well nourished, Well developed, No Acute Distress Head: Normocephalic, Atraumatic Eyes: Perrl, EOMI. Negative for: Pale conjunctiva, Scleral icterus ENT: No rhinorrhea, TM's clear, Dry mucous membranes. Negative for: Nasal congestion Neck: Supple, Nontender, No lymphadenopathy, No JVD Cardiovascular: Regular rate, Regular rhythm, No murmurs, Normal S1, Normal S2 Respiratory: No distress, Chest nontender, Wheezing, Decreased Air Movement Abdomen: Soft, Nontender, Nondistended, Normal bowel sounds, No masses. Negative for: Hepatomegaly, Splenomegaly, Mass, Pulsatile mass Rectal: Deferred Back: Nontender Extremities: Nontender, No edema Skin: No rash. Negative for: Cyanosis - When patient was examined by me she was on oxygen and saturation was greater than 90%. Neurological: Cranial nerves II-XII grossly intact, Normal Strength, Normal Sensation. Negative for: Alert, Oriented x3 Psychological: - - Flat affect with abnormal thought content Diagnostic/Tx/Re-eval Chest X-Ray - ED: 1 View, Unchanged, Heart, Mediastinum, Bony Structures, Chronic Changes With confusion hypoxia and history of CO2 retention with obstructive sleep apnea ABG was obtained to assess acid-base status as well as CO2 level. Chest x-ray is obtained because of abnormal respiratory sounds and because son was concerned regarding her cough. With history of encephalopathy in the past will obtain electrolytes, CBC and appropriate blood work. She was treated with DuoNeb and albuterol. If there is no improvement will administer IV Solu-Medrol. Impressions Chest X-Ray 09/14/18 12:27 IMPRESSION: Hyperinflation. The lungs are clear. Electronically Signed: Vinny Mcghee, at 13:16 EDT , Service support , 09/14/18 12:27 Chest 1 View [RAD] Stat 09/14/18 13:07 CTA Chest W/WO Contrast [CT] Stat Laboratory Results 09/14/18 09/14/18 09/14/18 11:45 11:45 11:45 WBC 6.3 RBC 4.14 L Hgb 12.0 Hct 41.5 MCV 100.2 H MCH 29.0 MCHC 28.9 L RDW 13.6 RDW Differential 49.9 H Plt Count 162 MPV 10.5 Immature Gran % (Auto) 0.000 Neut % (Auto) 64.4 Lymph % (Auto) 24.9 Fleming % (Auto) 7.3 Eos % (Auto) 2.9 Baso % (Auto) 0.5 Absolute Neuts (auto) 4.0 Absolute Lymphs (auto) 1.56 Total Counted Not Reportable Specimen Type Sample Site pH Bicarbonate Actual POC Total CO2 Base Excess O2 Saturation ABG pCO2 ABG pO2 Royal Test O2 Delivery Device Liter Flow Blood Gas Notified Whom Blood Gas Notified Time Sodium 144 Potassium 4.0 Chloride 100 Carbon Dioxide 42.0 H Anion Gap 2 L BUN 13 Creatinine 0.73 Estim Creat Clear Calc 65.25 Est GFR (MDRD) Af Amer 104 Est GFR (MDRD) Non-Af 86 BUN/Creatinine Ratio 17.9 Glucose 90 Lactic Acid 0.8 Calcium 8.6 09/14/18 12:01 WBC RBC Hgb Hct MCV MCH MCHC RDW RDW Differential Plt Count MPV Immature Gran % (Auto) Neut % (Auto) Lymph % (Auto) Fleming % (Auto) Eos % (Auto) Baso % (Auto) Absolute Neuts (auto) Absolute Lymphs (auto) Total Counted Specimen Type ART Sample Site L Radial pH 7.28 L Bicarbonate Actual 43.9 H POC Total CO2 47 Base Excess 17 H O2 Saturation 97 ABG pCO2 93.2 H* ABG pO2 105 H Royal Test POS O2 Delivery Device Nasal Can Liter Flow 4.0 Blood Gas Notified Whom ED MD Blood Gas Notified Time 1150 Sodium Potassium Chloride Carbon Dioxide Anion Gap BUN Creatinine Estim Creat Clear Calc Est GFR (MDRD) Af Amer Est GFR (MDRD) Non-Af BUN/Creatinine Ratio Glucose Lactic Acid Calcium - Rhythm Strip Rhythm Strip: Sinus Rhythm Rate: 78 Ectopy: None - EKG Initial EKG Interpretation: Sinus Rhythm - Ventricular response is 86. The EKG is normal. VT interval, Q episcopalian, QT interval and axis are normal. - Medical Decision Making With confusion hypoxia and history of CO2 retention with obstructive sleep apnea ABG was obtained to assess acid-base status as well as CO2 level. Chest x-ray is obtained because of abnormal respiratory sounds and because son was concerned regarding her cough. With history of encephalopathy in the past will obtain electrolytes, CBC and appropriate blood work. She was treated with DuoNeb and albuterol. If there is no improvement will administer IV Solu-Medrol. Patient's hypotension improved with fluid bolus. Since patient is hypoxic will obtain CTA to evaluate for pneumonia and more importantly pulmonary embolus. CTA was reviewed with Dr. Grover. There is no evidence of pulmonary embolus. There is emphysematous changes noted. Hospitalist was paged for admission to ICU - Critical Care Time Critical care time (excluding procedures): 30-74 minutes, Discussing w/Patient &/or Family/Community Marketing Manager, Discussing w/Consultants, Arranging Admission or Transfer, Performing Direct Patient Care at Bedside - Critical care time 33 minutes ED Disposition - Plan for ED Patient: Disposition: Acute Care Hospital [facility] Diagnosis: Acute and chronic respiratory failure with hypercapnia, Chronic obstructive pulmonary disease with acute exacerbation, Hypotension arterial Referrals: Glenn Ulloa MD [Primary Care Provider] -
[2018-09-14 12:05] LABS: Allen Test POS; Base Excess 17 mmol/L (-2 to +2); Bicarbonate 43.9 mmol/L (22-26); Blood Gas Specimen Type ART; O2 Delivery Device Nasal Can; PO2 105 mmHG (75-100); SITE L Radial; SO2 97 % (95-99); Time Given 1150; Total Carbon Dioxide 47 mmol/L; pCO2 93.2 mmHg (35-45); pH 7.28 (7.35-7.45)
[2018-09-14 12:12] LABS: Absolute Lymphocyte Count 1.56 X10^3/ul (0.83-4.51); Basophil# 0.03 X10^3/uL; Basophil% 0.5 % (0-1); Eosinophil# 0.18 X10^3/uL; Eosinophils% 2.9 % (0-5); Hematocrit 41.5 % (37-47); Lymphocyte # 1.56 X10^3/ul (4.0); Lymphocyte % 24.9 % (19-41); Mean Corp Hgb Conc 28.9 g/gl (32-36); Mean Corpuscular Volume 100.2 fL (81-99); Mean Platelet Vol. 10.5 fl (6.2-12.0); Monocyte# 0.46 X10^3/uL; Monocyte% 7.3 % (0-10); Neutrophil # 4.03 X10^3/uL (2.7-7.7); Neutrophil % 64.4 % (47-70); Platelet Count 162 K/mm3 (150-450); RBC Distribution Width CV 13.6 % (11.6-14.6); RBC Distribution Width SD 49.9 fl (35.1-43.9); Red Blood Count 4.14 M/mm3 (4.2-5.4); White Blood Count 6.3 K/mm3 (4.4-11.0)
[2018-09-14 12:16] LABS: POSITIVE COUNT NO; POSITIVE DIFFERENTIAL NO; POSITIVE MORPHOLOGY NO
[2018-09-14 12:21] LABS: Anion Gap 2 (5-15); BUN 13 mg/dL (7-18); BUN/Creat Ratio 17.9 RATIO (10-20); Calcium,Total 8.6 mg/dL (8.5-10.1); Chloride 100 mmol/L (98-107); Creatinine, Serum 0.73 mg/dL (0.55-1.02); EST Glomerular Filtration Rate 86 mL/min (>60); Est Glom Filt Rate - Afr Amer 104 mL/min (>60); Estimated Creatinine Clearance 65.25 ml/min; Glucose 90 mg/dL (74-106); Sodium Level 144 mmol/L (136-145)
--- NOTE | 2018-09-14 12:27 | RAD_ITS ---
STUDY: X-RAY CHEST REASON FOR EXAM: Female, 62 years old. Cough. Hypoxia. TECHNIQUE: Single AP portable view of the chest. COMPARISON: Comparison is made with prior study September 24, 2017. FINDINGS: EKG electrodes are seen. Hyperinflation. Scattered calcified granulomas. There is no demonstrated pleural abnormality. Normal size heart. Normal mediastinum and jacinto. Normal visualized pulmonary arteries. Normal visualized aortic arch and descending thoracic aorta. Normal visualized thoracic spine. Normal visualized ribs, clavicles, and shoulders. There is no demonstrated abnormality of the visualized soft tissue structures of the upper abdomen. RAD/Chest 1 View IMPRESSION: Hyperinflation. The lungs are clear. Electronically Signed: Vinny Mcghee, at 13:16 EDT , Service support ,
[2018-09-14 12:28] LABS: Lactic Acid 0.8 mmol/L (0.4-2.0)
[2018-09-14] MEDS: Ipratropium/Albuterol Sulfate 3 ML AMPUL.NEB INHALATION ×3 (12:38→22:16)
[2018-09-14] MEDS: Albuterol 2.5 MG/3 ML VIAL.NEB. INHALATION ×3 (12:38)
--- NOTE | 2018-09-14 13:07 | CT_ITS ---
STUDY: CTA CHEST REASON FOR EXAM: Female, 62 years old. RADIATION DOSAGE (If Supplied By Facility): CTDIvol = ( 10.96 ) mGy, DLP = ( 234.17 ) mGycm TECHNIQUE: The examination was performed with the intravenous administration of Isovue 370 100 IV. Post-processing of the angiographic images was performed, with multiplanar reformation and 3D reconstruction. Individualized dose optimization techniques were used for this CT. COMPARISON: None. FINDINGS: Normal enhancement of the main pulmonary artery and right and left pulmonary arteries. Normal enhancement of the bilateral peripheral pulmonary arteries. There is no demonstrated pulmonary embolism. Normal thoracic aorta and visualized great vessels. There is no demonstrated aortic dissection. Normal heart and pericardium. There are visualized mediastinal lymph nodes, which are within normal size limits, and with normal morphology. Normal hilar regions. Normal visualized trachea and bronchi. Hyperinflation. There is evidence of emphysematous changes more prominent in the upper lobes. Mild degree of linear scarring in the lingular segment of the left upper lobe. Normal pleura. Normal chest wall structures. There are degenerative changes of thoracic spine. Normal visualized upper abdomen. CT/CTA Chest W/WO Contrast IMPRESSION: Hyperinflation. Emphysematous changes worse in the upper lobes. Mild scarring in the lingular segment of the left upper lobe. Electronically Signed: Vinny Mcghee, at 15:01 EDT , Service support ,
--- NOTE | 2018-09-14 14:21 | CASEMGMT ---
RN SPIKE Assessment Introduced role of RN SPIKE to patient and patient brother Antelmo at bedside. Patient currently on bipap and CM unable to obtain information from patient, information obtained from brother. Brother Antelmo lives up the street from patient and became tearful during discussion of stating he would like to take care of his sister if sister needing additional assistance with care upon DC, emotional support provided. Care providers, pharmacy, and demographics verified. Was seen in the ER 08/16/18 for Per MD Note: Impression: Hypoxia secondary to noncompliance 2. History of respiratory failure with chronic CO2 retention and hypoxia secondary to COPD 3. Dyspnea and dizziness secondary to hypoxia, resolved Presentation: CC: Confusion, Cough PCP: Dr Glenn Ulloa Specialist: Per Brother denies, however states patient does go to Outpatient [facility] Insurance: Medicare A&B Prescription Benefit: Per brother Yes, CM did not see Part D on Insurance card or any secondary insurance. LNOK: Significant Other Oscar Frank Living Arrangements: Patient lives with significant other in a Home, 8 steps to enter. Independent with ambulation and ADL's. Transportation: Brother Antelmo or Significant other Oscar- either one will transport on DC. DME: Home O2 2LNC- [employer], portable O2 tank, CPAP, Nebulizer, Shower Chair. HHC: None in past SNF: None in past DC PLAN: Home, needs TBD, however no anticipated needs at this time. Tyrone Sarmiento RNCM
--- NOTE | 2018-09-14 15:09 | NURSING ---
ICU 2 [facility]IE[facility] RESP FAILURE WITH HYPERCAPNIA AND HYPOXIA, COPD , HYPOTENSION
--- NOTE | 2018-09-14 15:27 | PCM.HP.STD ---
Problem List (1) Acute and chronic respiratory failure with hypercapnia Status: Acute (2) Chronic obstructive pulmonary disease with acute exacerbation Status: Chronic (3) Hypotension arterial Status: Acute (4) Nocturnal leg cramps Status: Acute (5) Pharyngitis Status: Acute (6) Dyspnea on exertion Status: Chronic (7) TIO (obstructive sleep apnea) Status: Chronic Comment: Unable to tolerate Pap therapy, discontinuing use (8) History of ETOH abuse Status: Chronic (9) History of stroke Status: Resolved Comment: Right occipital lobe and left posterior superior parietal lobe per CT;later determined as hemorrhagic per MRI developed NSTEMI shortly after but no intervention d/t GI bleed (10) History of non-ST elevation myocardial infarction (NSTEMI) Status: Resolved (11) History of DVT of lower extremity Status: Chronic Comment: Rt lower extremity pinky vein (12) Acid-base disorder, mixed Status: Chronic (13) Insomnia Status: Chronic (14) Anxiety Status: Chronic (15) History of pneumonia Status: Resolved (16) Hyperlipidemia Status: Chronic Qualifiers: Hyperlipidemia type: pure hypercholesterolemia Qualified Code(s): E78.00 - Pure hypercholesterolemia, unspecified (17) Hypertension Status: Chronic Qualifiers: Hypertension type: essential hypertension Qualified Code(s): I10 - Essential (primary) hypertension (18) Daytime hypersomnia Status: Acute (19) H/O: section Status: Resolved (20) History of lumpectomy Status: Resolved (21) History of cholecystectomy Status: Resolved (22) Hemorrhagic cerebrovascular accident (CVA) Status: Resolved (23) Heart failure with reduced ejection fraction Status: Chronic (24) Metabolic encephalopathy Status: Resolved (25) Upper GI bleed Status: Resolved (26) Transaminitis Status: Acute (27) Elevated serum creatinine Status: Acute (28) COPD (chronic obstructive pulmonary disease) Status: Chronic Qualifiers: COPD type: unspecified COPD Qualified Code(s): J44.9 - Chronic obstructive pulmonary disease, unspecified (29) PRES (posterior reversible encephalopathy syndrome) Status: Resolved History of Present Illness Date of Admission: 09/14/18 Chief Complaint: Shortness of breath, cough worsening for last 3 days The patient is a 62 year old F with history of COPD, chronic hypercapnic and hypoxic respiratory failure on 2 L of home oxygen came to ED with progressive worsening of shortness of breath for 3 days along with URI symptoms of cough, fever, chills and increased weakness. Patient was also confused. Patient was found disoriented with time, place and circumstances. [In ED, she was 85% on room air, tachypneic respiratory rate 22/min but no fever. Gradually she started dropping her blood pressure from 132/97-96/73. ABG 7.28/90 3.2/105 on 4 L of oxygen nasal cannula. Lactic acid is normal. ED physician is going to put a central line. CT chest was done which shows emphysematous changes worse in upper lobes and mild scarring and lingular level left upper lobe. Patient is being further admitted in ICU Past Medical History Past Medical History (Chronic Problems): Chronic Problems (Last Reviewed 08/18/18 @ 10:31 by Skylar Geller) Chronic obstructive pulmonary disease with acute exacerbation (Chronic) Dyspnea on exertion (Chronic) TIO (obstructive sleep apnea) (Chronic) Unable to tolerate Pap therapy, discontinuing use History of ETOH abuse (Chronic) History of DVT of lower extremity (Chronic 02/11/17) Rt lower extremity pinky vein Acid-base disorder, mixed (Chronic) Insomnia (Chronic) Anxiety (Chronic) Hyperlipidemia (Chronic) Hypertension (Chronic) Heart failure with reduced ejection fraction (Chronic) COPD (chronic obstructive pulmonary disease) (Chronic) Medical History: Medical History (Last Reviewed 08/18/18 @ 10:31 by Skylar Geller) History of ETOH abuse (Chronic) Z87.898 History of stroke (Resolved) Onset Date: 02/03/17 Z86.73 Right occipital lobe and left posterior superior parietal lobe per CT;later determined as hemorrhagic per MRI developed NSTEMI shortly after but no intervention d/t GI bleed History of non-ST elevation myocardial infarction (NSTEMI) (Resolved) Onset Date: 02/03/17 I25.2 History of DVT of lower extremity (Chronic) Onset Date: 02/11/17 Z86.718 Rt lower extremity pinky vein History of pneumonia (Resolved) Z87.01 Hyperlipidemia (Chronic) E78.5 Hypertension (Chronic) I10 Hemorrhagic cerebrovascular accident (CVA) (Resolved) I61.9 Heart failure with reduced ejection fraction (Chronic) I50.20 Metabolic encephalopathy (Resolved) G93.41 Upper GI bleed (Resolved) K92.2 Transaminitis (Acute) R74.0 Elevated serum creatinine (Acute) R79.89 COPD (chronic obstructive pulmonary disease) (Chronic) J44.9 PRES (posterior reversible encephalopathy syndrome) (Resolved) I67.83 Acute respiratory failure (Resolved) J96.00 Allergies tetanus and diphtheria toxoids [tetanus & diphtheria toxoids] Allergy (Verified 08/18/18 10:30) Hives Home Medications: Ambulatory Orders Medication Instructions Recorded Albuterol IH (ProAir) [Proair Hfa] 1 puff INHALATION Q4H PRN PRN #1 09/17/17 inhaler aspirin 81 mg tablet,delayed 81 mg PO DAILY #90 tab 03/02/18 release zolpidem 10 mg tablet 10 mg PO QHS PRN #30 tab 08/17/18 Atorvastatin Calcium 20 mg PO QHS 09/14/18 Carvedilol [Coreg (Beta Indy)] 12.5 mg PO BID 09/14/18 Escitalopram Oxalate [Lexapro] 15 mg PO DAILY 09/14/18 Folic Acid 1 mg PO DAILY 09/14/18 Multivitamin with Minerals 1 tab PO DAILY 09/14/18 [Multiple Vitamin] Pantoprazole Sodium 40 mg PO QAM 09/14/18 Spironolactone 25 mg PO DAILY 09/14/18 Surgical History: Surgical History (Last Reviewed 08/18/18 @ 10:31 by Skylar Geller) H/O: section (Resolved) Z98.891 History of lumpectomy (Resolved) Z98.890 History of cholecystectomy (Resolved) Z90.49 Hx of appendectomy Z90.49 Surgical History: cholecystectomy, - - Lumpectomy Lives: With Family Smoking Status: Current every day smoker Tobacco Use: Cigarettes - *Family History Maternal Family History: Family History (Last Reviewed 08/18/18 @ 10:31 by Skylar Geller) Sister Cancer Father Cancer Mother Cancer History Items: Cancer - Lung Paternal Family History: Family History (Last Reviewed 08/18/18 @ 10:31 by Skylar Geller) Sister Cancer Father Cancer Mother Cancer History Items: Cancer - Lung Sibling Family History: Family History (Last Reviewed 08/18/18 @ 10:31 by Skylar Geller) Sister Cancer Father Cancer Mother Cancer History Items: Cancer - lung Review of Systems Constitutional: Reports: Chills, Fever, Weakness, Fatigue. Denies: Weight Change HEENT: Denies: Head Aches, Sinus Congestion, Sinus Drainage Cardiovascular: Denies: Chest Pain, Chest Pressure, Chest Tightness, Palpitations Respiratory: Reports: Cough, Shortness of breath at rest, Shortness of breath upon exertion. Denies: Sputum production Gastrointestinal: Denies: Abdominal Pain, Nausea, Vomiting Genitourinary: Denies: Dysuria Musculoskeletal: Denies: Joint Pain, Joint Tenderness Skin: Denies: Rash, Wounds Neurological: Reports: Incoordination. Denies: Focal weakness, Numbness, Tingling Psychiatric: Reports: Anxiety. Denies: Depression, Homicidal Ideations, Suicidal Ideations Hematologic/ Lymphatic: Denies: Easy Bruising, Easy Bleeding VTE Information - Inpt Only VTE Present on Admission: No VTE Mechan Device Prophylaxis: None VTE Pharm Prophylaxis ordered?: Yes Patient Problems: Active and Suspected Problems (Last Reviewed 08/18/18 @ 10:31 by Skylar Geller) Acute and chronic respiratory failure with hypercapnia (Acute) Hypotension arterial (Acute) - Physical Exam General: Confused, Disoriented - Disoriented to time place and circumstances, Lethargic HEENT: Atraumatic, PERRLA, EOMI, Normocephalic Neck: Supple, No JVD, Negative Carotid Bruits Lungs: Diminished - Air entry severely diminished in all lung smith. On BiPAP., Tachypneic, Using Accessory Muscles, Wheezes Cardiovascular: Regular rate, Regular Rhythm, Normal S1, Normal S2, No murmurs Abdomen: Bowel Sounds Present, Soft, Non Tender, Non-Distended Extremities: No edema, Capillary Refill Less than 3 Seconds Skin: No rashes, No breakdown Musculoskeletal: No Tenderness to Palpation of Joints or Extremities, Arthritic Changes, Muscle Wasting Lymphatic: No Cervical, Supraclavicular, or Inguinal Adenopathy Neurological: Cranial nerves II-XII grossly intact, Neuro grossly intact Psych/Mental Status: Normal Affect, Appropriate Vital Signs Temp Pulse Resp BP Pulse Ox 98.3 F 69 18 96/73 96 09/14/18 13:02 09/14/18 15:18 09/14/18 15:18 09/14/18 15:18 09/14/18 15:18 Oxygen Flow Rate (L/min) 2 Oxygen Delivery Method Bi-pap Weight: 143 lb 11.862 oz Body Mass Index (BMI) 25.4 Finger Stick Blood Glucose 105 Laboratory Tests Past 24 Hrs 09/14/18 09/14/18 09/14/18 11:45 11:45 11:45 WBC 6.3 RBC 4.14 L Hgb 12.0 Hct 41.5 MCV 100.2 H MCH 29.0 MCHC 28.9 L RDW 13.6 RDW Differential 49.9 H Plt Count 162 MPV 10.5 Immature Gran % (Auto) 0.000 Neut % (Auto) 64.4 Lymph % (Auto) 24.9 [place] % (Auto) 7.3 Eos % (Auto) 2.9 Baso % (Auto) 0.5 Absolute Neuts (auto) 4.0 Absolute Lymphs (auto) 1.56 Total Counted Not Reportable Specimen Type Sample Site pH Bicarbonate Actual POC Total CO2 Base Excess O2 Saturation ABG pCO2 ABG pO2 Royal Test O2 Delivery Device Liter Flow Blood Gas Notified Whom Blood Gas Notified Time Sodium 144 Potassium 4.0 Chloride 100 Carbon Dioxide 42.0 H Anion Gap 2 L BUN 13 Creatinine 0.73 Estim Creat Clear Calc 65.25 Est GFR (MDRD) Af Amer 104 Est GFR (MDRD) Non-Af 86 BUN/Creatinine Ratio 17.9 Glucose 90 Lactic Acid 0.8 Calcium 8.6 09/14/18 12:01 WBC RBC Hgb Hct MCV MCH MCHC RDW RDW Differential Plt Count MPV Immature Gran % (Auto) Neut % (Auto) Lymph % (Auto) [place] % (Auto) Eos % (Auto) Baso % (Auto) Absolute Neuts (auto) Absolute Lymphs (auto) Total Counted Specimen Type ART Sample Site L Radial pH 7.28 L Bicarbonate Actual 43.9 H POC Total CO2 47 Base Excess 17 H O2 Saturation 97 ABG pCO2 93.2 H* ABG pO2 105 H Royal Test POS O2 Delivery Device Nasal Can Liter Flow 4.0 Blood Gas Notified Whom ED Blood Gas Notified Time 1150 Sodium Potassium Chloride Carbon Dioxide Anion Gap BUN Creatinine Estim Creat Clear Calc Est GFR (MDRD) Af Amer Est GFR (MDRD) Non-Af BUN/Creatinine Ratio Glucose Lactic Acid Calcium Assessment/Plan All Active Problems (Last Reviewed 08/18/18 @ 10:31 by Skylar Geller) Acute and chronic respiratory failure with hypercapnia (Acute) Hypotension arterial (Acute) Nocturnal leg cramps (Acute) Pharyngitis (Acute) History of stroke (Resolved 02/03/17) History of non-ST elevation myocardial infarction (NSTEMI) (Resolved 02/03/17) History of pneumonia (Resolved) Daytime hypersomnia (Acute) H/O: section (Resolved) History of lumpectomy (Resolved) History of cholecystectomy (Resolved) Hemorrhagic cerebrovascular accident (CVA) (Resolved) Metabolic encephalopathy (Resolved) Upper GI bleed (Resolved) Transaminitis (Acute) Elevated serum creatinine (Acute) PRES (posterior reversible encephalopathy syndrome) (Resolved) Acute respiratory failure (Resolved) The patient is a 62 year old F with history of COPD, chronic hypercapnic and hypoxic respiratory failure on 2 L of home oxygen came to ED with progressive worsening of shortness of breath for 3 days along with URI symptoms of cough, fever, chills and increased weakness. Patient was also confused. Patient was found disoriented with time, place and circumstances. [In ED, she was 85% on room air, tachypneic respiratory rate 22/min but no fever. Gradually she started dropping her blood pressure from 132/97-96/73. ABG 7.28/90 3.2/105 on 4 L of oxygen nasal cannula. Lactic acid is normal. ED physician is going to put a central line. CT chest was done which shows emphysematous changes worse in upper lobes and mild scarring and lingular level left upper lobe. She was last admitted in September 2017 for COPD exacerbation and right lower lobe strep pneumonia. Patient is being further admitted in ICU. 1. Acute on chronic combined hypercarbic and hypoxic respiratory failure secondary to COPD exacerbation: Patient is being admitted in ICU. On BiPAP support. Repeat ABG after an hour. Personnel Clerks Supervisor consult. 2. Acute on chronic respiratory acidosis secondary to COPD exacerbation most probably secondary to acute bronchitis probably viral: Respiratory panel ordered. Sputum culture and blood cultures have been ordered. Bronchodilator DuoNeb every 4 hourly. Solu-Medrol, chest physiotherapy. Mixed acid-base disorder. Anion gap is LOW 3. Transient hypotension, exact etiology unclear rule out sepsis: Patient had echo in February 2017 reported as EF 45%. Mild global left ventricular systolic dysfunction. No regional wall motion abnormality. Normal RV size systolic function mild TR, RVSP 36 mmHg. Mild MR with diffuse mitral valve thickening. Repeat echo. 4. Chronic systolic heart failure: As mentioned above. Avoid diuretics as patient is having hypotension 5 History of non-STEMI, stroke, right soleal vein DVT, hypertension and dyslipidemia, press syndrome: Patient has multiple comorbidities. This was explained to patient caregiver including her fianc? and brother. Multiple comorbidities complicates the present care and expect difficult and delay recovery End of life goal/advance directive: Discussed with the different options of full code, DNR CC arrest and DNR CC. This was discussed with patient, her brother and [place]?. Patient wanted all possible efforts to resuscitate her including intubation, CPR and vasopressors. Her Brother agreed for palliative care consult. DVT prophylaxis: On Lovenox 40 g subcu daily Clinical Impression(s) from Imaging Studies Chest X-Ray 09/14/18 12:27 IMPRESSION: Hyperinflation. The lungs are clear. Chest CTA 09/14/18 13:07 IMPRESSION: Hyperinflation. Emphysematous changes worse in the upper lobes. Mild scarring in the lingular segment of the left upper lobe. Code Visit Inpatient E&M: 72179 Init Hosp L3 Procedures: 88111 Advncd Care Plan 30 Min
--- NOTE | 2018-09-14 15:39 | RAD_ITS ---
STUDY: X-RAY CHEST REASON FOR EXAM: Female, 62 years old. Central line placement. TECHNIQUE: Single AP portable view of the chest. COMPARISON: Comparison is made with prior chest radiograph done earlier today. FINDINGS: A right-sided subclavian catheter has been placed. The tip is at the junction of the superior vena cava and right atrium. EKG electrodes are seen. Hyperinflation. Scattered calcified granulomas. There is no demonstrated pleural abnormality. Normal size heart. Normal mediastinum and jacinto. Normal visualized pulmonary arteries. Normal visualized aortic arch and descending thoracic aorta. Normal visualized thoracic spine. Normal visualized ribs, clavicles, and shoulders. There is no demonstrated abnormality of the visualized soft tissue structures of the upper abdomen. RAD/Chest 1 View (Portable) IMPRESSION: The tip of the right subclavian catheter is at the junction of the superior vena cava and right atrium. Electronically Signed: Vinny Mcghee, at 16:06 EDT , Service support ,
--- NOTE | 2018-09-14 15:45 | ECHOD_ITS ---
Reason For Study: Hypotension Procedure This was a 2D Doppler, Color Flow transthoracic echocardiogram. Exam performed portable in ICU/CCU. Left Ventricle Mildly dilated left ventricle. The estimated ejection fraction is 40-45 %. Stage 1 diastolic dysfunction. There is moderate global hypokinesis of the left ventricle. Right Ventricle Normal size and thickness. Normal systolic function. Atria Normal left atrium. Normal right atrium. Normal atrial septum. Mitral Valve Mild diffuse mitral valve thickening. Mild-Moderate (1-2+) posteriorly directed mitral valve insufficiency. Tricuspid Valve Normal tricuspid valve. Trivial tricuspid valve insufficiency. Right ventricular systolic pressure estimated to be 26 mmHg. Aortic Valve Normal aortic valve. Trisinus/trileaflet aortic valve. Pulmonic Valve Normal pulmonic valve. Great Vessels Normal aortic root. Normal arch. Normal inferior vena cava. Inferior vena cava collapse with sniff. Pericardium/Pleural No pericardial effusion. MMode/2D Measurements & Calculations LVIDd: 5.2 cm IVSd: 1.2 cm Ao root diam: 3.1 cm LVIDs: 3.9 cm LVPWd: 0.74 cm LA dimension: 3.5 cm RVDd: 2.7 cm FS: 25.2 % LAV(MOD-bp): 56.4 ml LA A4 area: 17.9 cm2 RA A4 area: 11.0 cm2 LAV(MOD-bp) Indexed: 33.7 ml/m2 LAV(MOD-sp2): 60.3 ml LAV(MOD-sp4): 49.0 ml Time Measurements MV dec time: 0.26 sec Doppler Measurements & Calculations MV E max james: 90.6 cm/sec Lat Peak E' James: 11.0 cm/sec Med Peak E' James: 10.3 cm/sec MV A max james: 104.6 cm/sec E/E' lat: 8.3 E/E' med: 8.8 MV E/A: 0.87 MV V2 max: 116.5 cm/sec MV P1/2t max james: 117.5 cm/sec Ao V2 max: 131.7 cm/sec MV max P.4 mmHg MV P1/2t: 85.4 msec Ao max P.9 mmHg MV V2 mean: 69.8 cm/sec MV dec slope: 402.8 cm/sec2 Ao V2 mean: 92.3 cm/sec MV mean P.2 mmHg MVA(P1/2t): 2.6 cm2 Ao mean P.8 mmHg MV V2 VTI: 34.7 cm Ao V2 VTI: 32.1 cm LV V1 max: 101.9 cm/sec MR max james: 528.0 cm/sec PA V2 max: 83.8 cm/sec LV V1 max P.2 mmHg MR max P.5 mmHg LV V1 mean P.3 mmHg MR mean james: 430.1 cm/sec LV V1 mean: 72.9 cm/sec MR mean P.4 mmHg LV V1 VTI: 25.0 cm MR VTI: 209.1 cm TR max james: 230.2 cm/sec TR max P.2 mmHg Interpretation Summary Mildly dilated left ventricle. The estimated ejection fraction is 40-45 %. Stage 1 diastolic dysfunction. There is moderate global hypokinesis of the left ventricle. Mild-Moderate (1-2+) posteriorly directed mitral valve insufficiency. Trivial tricuspid valve insufficiency. Right ventricular systolic pressure estimated to be 26 mmHg. Compared to echo rerport dated 02/06/2017, no appreciable changes noted. Ordering Physician: Tex Agee Referring Physician: Tex Agee Performed By: Colin Evans RCS
--- NOTE | 2018-09-14 17:06 | CPS ---
1145: Critical CO2, ran ABG times two. values reported to DR. Sims
[2018-09-14 17:31] LABS: Allen Test POS; Base Excess 14 mmol/L (-2 to +2); Bicarbonate 39.8 mmol/L (22-26); Blood Gas Specimen Type ART; EPAP 8; FI02 30; IPAP 16; PO2 68 mmHG (75-100); RR 12; SITE L Radial; SO2 91 % (95-99); Time Given 1720; Total Carbon Dioxide 42 mmol/L; pCO2 72.8 mmHg (35-45); pH 7.35 (7.35-7.45)
[2018-09-14] MEDS: 0.9% Normal Saline 1,000 ML 100 ML IV (17:36)
[2018-09-14] MEDS: Enoxaparin 40 MG/0.4 ML Syringe SC (17:36)
--- NOTE | 2018-09-14 17:48 | CPS ---
3825 Dr. Agee notified about critical CO2 on ABG Katheryn Recio [employer] DEVELOPMENT CONSULTANT-[employer]
[2018-09-14] MEDS: Carvedilol 12.5 MG Tablet PO (21:33)
[2018-09-14] MEDS: Atorvastatin Calcium 20 MG Tablet PO (21:33)
[2018-09-14] MEDS: Zolpidem Tartrate 5 MG Tablet PO (21:34)
[2018-09-14] MEDS: 0.9% NaCl Peripheral Flush Adult/Peds IV (21:34)
[2018-09-15] VITALS (25 sets, daily range): BP systolic 99–142; BP diastolic 57–87; PULSE 66–86; RESP 12–24; TEMP 36.4–36.8; O2SAT 94–100
[2018-09-15] MEDS: LORazepam 2 MG/ML Syringe 1 MG IV (02:50)
[2018-09-15] MEDS: 0.9% Normal Saline 1,000 ML 100 ML IV (05:22)
[2018-09-15 05:49] LABS: Absolute Lymphocyte Count 0.64 X10^3/ul (0.83-4.51); Eosinophil# 0.01 X10^3/uL; Eosinophils% 0.3 % (0-5); Hematocrit 37.4 % (37-47); Hemoglobin 11.1 g/dl (12.0-15.0); Lymphocyte # 0.64 X10^3/ul (4.0); Lymphocyte % 17.3 % (19-41); Mean Corp Hgb Conc 29.7 g/gl (32-36); Mean Corpuscular Hgb 28.8 pg (27.0-32.0); Mean Corpuscular Volume 97.1 fL (81-99); Mean Platelet Vol. 10.4 fl (6.2-12.0); Monocyte# 0.03 X10^3/uL; Monocyte% 0.8 % (0-10); Neutrophil # 3.01 X10^3/uL (2.7-7.7); Neutrophil % 81.6 % (47-70); Platelet Count 130 K/mm3 (150-450); RBC Distribution Width CV 12.9 % (11.6-14.6); RBC Distribution Width SD 45.2 fl (35.1-43.9); Red Blood Count 3.85 M/mm3 (4.2-5.4); White Blood Count 3.7 K/mm3 (4.4-11.0)
[2018-09-15 05:53] LABS: ALB/GLOB Ratio 0.9 RATIO (0.9-2.4); AST(SGOT) 14 U/L (15-37); Alanine Aminotransfer ALT/SGPT 15 U/L (13-56); Albumin, Serum 3.2 g/dL (3.2-5.0); Alkaline Phosphatase 54 U/L (45-117); Anion Gap 4 (5-15); BUN 10 mg/dL (7-18); BUN/Creat Ratio 15.3 RATIO (10-20); Calcium,Total 8.4 mg/dL (8.5-10.1); Chloride 104 mmol/L (98-107); Creatinine, Serum 0.66 mg/dL (0.55-1.02); EST Glomerular Filtration Rate 97 mL/min (>60); Est Glom Filt Rate - Afr Amer 117 mL/min (>60); Estimated Creatinine Clearance 72.17 ml/min; Globulin 3.4 g/dL (2.2-4.2); Glucose 143 mg/dL (74-106); Potassium 3.6 mmol/L (3.5-5.1); Protein, Total 6.6 g/dL (6.4-8.2); Sodium Level 144 mmol/L (136-145)
[2018-09-15 05:57] LABS: POSITIVE COUNT NO; POSITIVE DIFFERENTIAL NO; POSITIVE MORPHOLOGY NO
--- NOTE | 2018-09-15 06:07 | PCM.CON.CC ---
Reason for Consult Date of Consultation: 09/15/18 Reason for Consultation: Acute on chronic respiratory failure History of Present Illness: The patient is a 62-year-old female, with a history as outlined below, who presented to the emergency department on September 14 with altered mental status. On presentation to the emergency department, the patient was noted to be afebrile and hemodynamically stable. She appeared to be hypoxic at 85% on room air, which is not unexpected, given that she has a 2 L/min supplemental oxygen requirement at her baseline. Laboratory evaluation revealed no evidence of a leukocytosis. Chemistry profile was notable for an elevated serum bicarbonate to 42. The patient is a chronic CO2 retainer. Arterial blood gas obtained on 4 L/min supplemental oxygen revealed a pH of 7.28 with a corresponding PCO2 of 93 and PO2 of 105. The patient was subsequently placed on BiPAP therapy. A central line was also placed, due to tenuous hemodynamics. She was subsequently admitted to the medical intensive care unit for ongoing management. The patient is known to me from the pulmonary medicine clinic. She has a known history of end-stage COPD and chronic hypoxemic respiratory failure. In addition, she has known obstructive sleep apnea, based upon a diagnostic polysomnogram completed in October 2017. The patient was subsequently prescribed BiPAP therapy with a pressure support of 15/11 centimeters of water with a 2 L/min supplemental oxygen bleed in. She has a previous smoking history that included 1.5 packs per day ?20 years. The patient quit smoking completely 15 years ago. 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 A 6 minute walk test also completed in December 2017 revealed the need for 2 L/min of supplemental oxygen, both at rest and with exertion. The patient's last pulmonary visit occurred in May 2018. At that time, the patient was noted to be unable to tolerate the prescribed noninvasive positive pressure ventilation due to PTSD. Therefore, she has not been on any form of ventilatory support since that time. She has a great deal of underlying anxiety and reported PTSD, which precluded her use of BiPAP. Despite being on a maximal inhaler regimen, she continues to utilize her rescue inhaler quite frequently. Past Medical History Past Medical History (Chronic Problems): Chronic Problems (Last Reviewed 08/18/18 @ 10:31 by Skylar Geller) Chronic obstructive pulmonary disease with acute exacerbation (Chronic) Dyspnea on exertion (Chronic) TIO (obstructive sleep apnea) (Chronic) Unable to tolerate Pap therapy, discontinuing use History of ETOH abuse (Chronic) History of DVT of lower extremity (Chronic 02/11/17) Rt lower extremity pinky vein Acid-base disorder, mixed (Chronic) Insomnia (Chronic) Anxiety (Chronic) Hyperlipidemia (Chronic) Hypertension (Chronic) Heart failure with reduced ejection fraction (Chronic) COPD (chronic obstructive pulmonary disease) (Chronic) Medical History: Medical History (Last Reviewed 08/18/18 @ 10:31 by Skylar Geller) History of ETOH abuse (Chronic) Z87.898 History of stroke (Resolved) Onset Date: 02/03/17 Z86.73 Right occipital lobe and left posterior superior parietal lobe per CT;later determined as hemorrhagic per MRI developed NSTEMI shortly after but no intervention d/t GI bleed History of non-ST elevation myocardial infarction (NSTEMI) (Resolved) Onset Date: 02/03/17 I25.2 History of DVT of lower extremity (Chronic) Onset Date: 02/11/17 Z86.718 Rt lower extremity pinky vein History of pneumonia (Resolved) Z87.01 Hyperlipidemia (Chronic) E78.5 Hypertension (Chronic) I10 Hemorrhagic cerebrovascular accident (CVA) (Resolved) I61.9 Heart failure with reduced ejection fraction (Chronic) I50.20 Metabolic encephalopathy (Resolved) G93.41 Upper GI bleed (Resolved) K92.2 Transaminitis (Acute) R74.0 Elevated serum creatinine (Acute) R79.89 COPD (chronic obstructive pulmonary disease) (Chronic) J44.9 PRES (posterior reversible encephalopathy syndrome) (Resolved) I67.83 Acute respiratory failure (Resolved) J96.00 Allergies tetanus and diphtheria toxoids [tetanus & diphtheria toxoids] Allergy (Verified 08/18/18 10:30) Hives Home Medications: Ambulatory Orders Medication Instructions Recorded Albuterol IH (ProAir) [Proair Hfa] 1 puff INHALATION Q4H PRN PRN #1 09/17/17 inhaler aspirin 81 mg tablet,delayed 81 mg PO DAILY #90 tab 03/02/18 release zolpidem 10 mg tablet 10 mg PO QHS PRN #30 tab 08/17/18 Carvedilol [Coreg (Beta Indy)] 12.5 mg PO BID 09/14/18 Escitalopram Oxalate [Lexapro] 15 mg PO DAILY 09/14/18 Folic Acid 1 mg PO DAILY 09/14/18 Multivitamin with Minerals 1 tab PO DAILY 09/14/18 [Multiple Vitamin] Pantoprazole Sodium 40 mg PO QAM 09/14/18 Spironolactone 12.5 mg PO DAILY 09/14/18 Surgical History: Surgical History (Last Reviewed 08/18/18 @ 10:31 by Skylar Geller) H/O: section (Resolved) Z98.891 History of lumpectomy (Resolved) Z98.890 History of cholecystectomy (Resolved) Z90.49 Hx of appendectomy Z90.49 Surgical History: cholecystectomy, - - Lumpectomy Lives: With Family Smoking Status: Current every day smoker Tobacco Use: Cigarettes - *Family History Maternal Family History: Family History (Last Reviewed 08/18/18 @ 10:31 by Skylar Geller) Sister Cancer Father Cancer Mother Cancer History Items: Cancer - Lung Paternal Family History: Family History (Last Reviewed 08/18/18 @ 10:31 by Skylar Geller) Sister Cancer Father Cancer Mother Cancer History Items: Cancer - Lung Sibling Family History: Family History (Last Reviewed 08/18/18 @ 10:31 by Skylar Geller) Sister Cancer Father Cancer Mother Cancer History Items: Cancer - lung Review of Systems Constitutional: Denies: Chills, Fever Eyes: Denies: Blurred vision, Double vision HEENT: Denies: Head Aches, Sinus Congestion, Sinus Drainage Cardiovascular: Denies: Chest Pain, Palpitations Respiratory: Reports: Cough, Shortness of Breath Gastrointestinal: Denies: Abdominal Pain, Nausea, Vomiting Genitourinary: Denies: Dysuria Musculoskeletal: Denies: Joint Pain, Joint Tenderness Skin: Denies: Rash, Wounds Neurological: Denies: Numbness, Tingling, Focal weakness Psychiatric: Reports: Anxiety, Depression Hematologic/ Lymphatic: Denies: Easy Bruising, Easy Bleeding Patient Problems: Active and Suspected Problems (Last Reviewed 08/18/18 @ 10:31 by Skylar Geller) Acute and chronic respiratory failure with hypercapnia (Acute) Hypotension arterial (Acute) Objective: The patient's most recent lab work, culture data and imaging studies have all been personally reviewed. Respiratory viral panel and blood cultures are currently pending. Surface echocardiogram completed in February 2017 revealed mild global LV systolic dysfunction with an ejection fraction of 45%. Pulmonary artery systolic pressure was estimated to be 36 mmHg. - Physical Exam General: Alert, Cooperative, No apparent distress HEENT: Atraumatic, PERRLA, Normocephalic Oral: No Gingival or Mucosal Lesions/ Ulcerations Neck: Supple, No Nodes, Trachea Midline Lungs: - - Globally diminished air movement throughout all lung smith without wheezes, rales or rhonchi. Cardiovascular: Regular rate, Regular Rhythm, Normal S1, Normal S2, No murmurs Abdomen: Bowel Sounds Present, Soft, Non Tender Extremities: No clubbing, No cyanosis, No edema Skin: No breakdown Musculoskeletal: No Tenderness to Palpation of Joints or Extremities Lymphatic: No Cervical, Supraclavicular, or Inguinal Adenopathy Neurological: Neuro grossly intact Psych/Mental Status: Anxious Vital Signs Temp Pulse Resp BP Pulse Ox 36.4 C L 81 22 H 100/82 H 99 09/15/18 00:00 09/15/18 03:00 09/15/18 03:00 09/15/18 03:00 09/15/18 03:00 Oxygen Flow Rate (L/min) 2 Oxygen Delivery Method Bi-pap Weight: 141 lb 12.116 oz Body Mass Index (BMI) 24.7 Finger Stick Blood Glucose 105 Intake and Output for Last 24 Hours 09/13/18 09/14/18 09/15/18 23:59 23:59 23:59 Intake Total 826 / 826 Output Total 450 / 450 Balance 376 / 376 Laboratory Tests Past 24 Hrs 09/14/18 09/14/18 09/14/18 11:45 11:45 11:45 WBC 6.3 RBC 4.14 L Hgb 12.0 Hct 41.5 MCV 100.2 H MCH 29.0 MCHC 28.9 L RDW 13.6 RDW Differential 49.9 H Plt Count 162 MPV 10.5 Immature Gran % (Auto) 0.000 Neut % (Auto) 64.4 Lymph % (Auto) 24.9 [place] % (Auto) 7.3 Eos % (Auto) 2.9 Baso % (Auto) 0.5 Absolute Neuts (auto) 4.0 Absolute Lymphs (auto) 1.56 Total Counted Not Reportable Specimen Type Sample Site pH Bicarbonate Actual POC Total CO2 Base Excess O2 Saturation O2 % ABG pCO2 ABG pO2 Royal Test Respiration Rate O2 Delivery Device Liter Flow EPAP IPAP Blood Gas Notified Whom Blood Gas Notified Time Sodium 144 Potassium 4.0 Chloride 100 Carbon Dioxide 42.0 H Anion Gap 2 L BUN 13 Creatinine 0.73 Estim Creat Clear Calc 65.25 Est GFR (MDRD) Af Amer 104 Est GFR (MDRD) Non-Af 86 BUN/Creatinine Ratio 17.9 Glucose 90 Lactic Acid 0.8 Calcium 8.6 Total Bilirubin AST ALT Alkaline Phosphatase Total Protein Albumin Globulin Albumin/Globulin Ratio 09/14/18 09/14/18 09/15/18 12:01 17:24 05:25 WBC 3.7 L RBC 3.85 L Hgb 11.1 L Hct 37.4 MCV 97.1 MCH 28.8 MCHC 29.7 L RDW 12.9 RDW Differential 45.2 H Plt Count 130 L MPV 10.4 Immature Gran % (Auto) 0.000 Neut % (Auto) 81.6 H Lymph % (Auto) 17.3 L [place] % (Auto) 0.8 Eos % (Auto) 0.3 Baso % (Auto) 0.0 Absolute Neuts (auto) 3.0 Absolute Lymphs (auto) 0.64 L Total Counted Not Reportable Specimen Type ART ART Sample Site L Radial L Radial pH 7.28 L 7.35 Bicarbonate Actual 43.9 H 39.8 H POC Total CO2 47 42 Base Excess 17 H 14 H O2 Saturation 97 91 L O2 % 30 ABG pCO2 93.2 H* 72.8 H* ABG pO2 105 H 68 L Royal Test POS POS Respiration Rate 12 O2 Delivery Device Nasal Can Bi / C PAP Liter Flow 4.0 EPAP 8 IPAP 16 Blood Gas Notified Whom ED HOSP Blood Gas Notified Time 1150 1720 Sodium Potassium Chloride Carbon Dioxide Anion Gap BUN Creatinine Estim Creat Clear Calc Est GFR (MDRD) Af Amer Est GFR (MDRD) Non-Af BUN/Creatinine Ratio Glucose Lactic Acid Calcium Total Bilirubin AST ALT Alkaline Phosphatase Total Protein Albumin Globulin Albumin/Globulin Ratio 09/15/18 05:25 WBC RBC Hgb Hct MCV MCH MCHC RDW RDW Differential Plt Count MPV Immature Gran % (Auto) Neut % (Auto) Lymph % (Auto) [place] % (Auto) Eos % (Auto) Baso % (Auto) Absolute Neuts (auto) Absolute Lymphs (auto) Total Counted Specimen Type Sample Site pH Bicarbonate Actual POC Total CO2 Base Excess O2 Saturation O2 % ABG pCO2 ABG pO2 Royal Test Respiration Rate O2 Delivery Device Liter Flow EPAP IPAP Blood Gas Notified Whom Blood Gas Notified Time Sodium 144 Potassium 3.6 Chloride 104 Carbon Dioxide 36.0 H Anion Gap 4 L BUN 10 Creatinine 0.66 Estim Creat Clear Calc 72.17 Est GFR (MDRD) Af Amer 117 Est GFR (MDRD) Non-Af 97 BUN/Creatinine Ratio 15.3 Glucose 143 H Lactic Acid Calcium 8.4 L Total Bilirubin 0.50 AST 14 L ALT 15 Alkaline Phosphatase 54 Total Protein 6.6 Albumin 3.2 Globulin 3.4 Albumin/Globulin Ratio 0.9 Clinical Impression(s) from Imaging Studies Chest X-Ray 09/14/18 12:27 IMPRESSION: Hyperinflation. The lungs are clear. Electronically Signed: Vinny Mcghee, at 13:16 EDT , Service support , Chest CTA 09/14/18 13:07 IMPRESSION: Hyperinflation. Emphysematous changes worse in the upper lobes. Mild scarring in the lingular segment of the left upper lobe. Electronically Signed: Vinny Mcghee, at 15:01 EDT , Service support , Chest X-Ray 09/14/18 15:39 IMPRESSION: The tip of the right subclavian catheter is at the junction of the superior vena cava and right atrium. Electronically Signed: Vinny Mcghee, at 16:06 EDT , Service support , Assessment/Plan Active and Suspected Problems (Last Reviewed 08/18/18 @ 10:31 by Skylar Geller) Acute and chronic respiratory failure with hypercapnia (Acute) Hypotension arterial (Acute) RECOMMENDATIONS: 1. Discontinue antibiotics and IV steroids. 2. Continue DuoNeb's. Will add budesonide twice daily as well. 3. Recommend continuing BiPAP therapy with naps and nightly. 4. Palliative care consultation IMPRESSIONS: 1. Acute on chronic hypoxemic and hypercarbic respiratory failure The patient has a known history of end-stage COPD along with a 2 L/min baseline supplemental oxygen requirement. She is a chronic CO2 retainer. The patient did complete a sleep study previously and was started on BiPAP therapy in hopes that this would alleviate a component of her chronic CO2 retention. However, the patient was subsequently intolerant of the aforementioned therapy due to anxiety and self-reported PTSD. Therefore, BiPAP therapy was discontinued completely. She is currently on maximal therapy from an inhaler perspective and continues to utilize her rescue inhaler on a daily basis. CTA chest obtained on presentation revealed chronic findings including emphysematous changes, without an acute cardiopulmonary process. I do suspect that given the severity of the patient's underlying obstructive lung disease she needs to be on some form of ventilatory support on an outpatient basis. However, she has been resistant to this idea. CODE STATUS was discussed with the patient. She is in agreement with DNR CCA. In addition, she is agreeable to meeting with palliative care. This note was generated with [employer] dictation software. It may contain incorrect words, spelling, and punctuation that were not noted in checking the note before signing. Code Visit Inpatient E&M: 62784 Init Hosp L3
[2018-09-15] MEDS: Ipratropium/Albuterol Sulfate 3 ML AMPUL.NEB INHALATION ×5 (06:39→23:51)
[2018-09-15] MEDS: Carvedilol 12.5 MG Tablet PO ×2 (11:01→21:31)
[2018-09-15] MEDS: Aspirin E.C. 81 MG Tablet PO (11:01)
[2018-09-15] MEDS: Enoxaparin 40 MG/0.4 ML Syringe SC (11:01)
[2018-09-15] MEDS: Polyethylene Glycol 3350 17 GM PACKET PO (11:01)
[2018-09-15] MEDS: Folic Acid 1 MG Tablet PO (11:01)
[2018-09-15] MEDS: Pantoprazole Sodium 40 MG Tablet PO (11:01)
[2018-09-15] MEDS: Spironolactone 25 MG Tablet PO (11:01)
--- NOTE | 2018-09-15 11:40 | CASEMGMT ---
Social Work Jennifer from [facility] here to see pt as they received referral from Dr. Flannery. Jennifer states she met with pt, pt friend Oscar and pt brother Tereso. At this time pt displaying some confusion and unable to make informed decisions. Palliative care did leave information in the room and would be willing to followup with pt as out pt when pt mentation clears. will notify Jennifer at Palliative Care at time of pt d/c. RUI Noble
[2018-09-15] MEDS: hydrOXYzine PAM 25 MG Capsule 50 MG PO ×2 (13:37→21:31)
--- NOTE | 2018-09-15 15:44 | CHAPLAIN ---
Type of Pastoral Visit _x__ Initial Visit ___ Follow-up Visit ___ On-call Visit ___ General Patient Visit ___ Spiritual Assessment ___ Family Conference ___ Bereavement ___ Rapid Response ___ Code Blue ___ Other (describe below) Pastoral Care Referral From _x__ Patient ___ Family ___ Nurse ___ Physician ___ Golf Shoe Spike Assembler ___ Marionette Performer ___ Other (describe below) Sacrament/Intervention _x__ Active listening ___ Anointing ___ Church ___ Bereavement ___ Communion _x__ Marlin exploration ___ _x__ Life review _x__ Prayer ___ Reconciliation ___ Sacrament of Sick _x__ Supportive presence ___ Wedding ___ Other (describe below) Pastoral Comments patient requested prayers for her family
[2018-09-15] MEDS: Budesonide Respules 0.5 MG/2 ML AMPUL.NEB. INHALATION (18:57)
--- NOTE | 2018-09-15 20:18 | PCM.PROGNOTE ---
Patient Problems: Active and Suspected Problems (Last Reviewed 08/18/18 @ 10:31 by Skylar Geller) Acute and chronic respiratory failure with hypercapnia (Acute) Hypotension arterial (Acute) Subjective: She was seen and examined today, she is presently on nasal cannula O2, she was moved from ICU this morning to PCU for further care. I talked to the patient about her CODE STATUS today in the ICU, she does not want to be intubated or have CPR if her heart stops. - Physical Exam General: Alert, Oriented x3, Cooperative, No apparent distress, Well developed HEENT: Atraumatic, PERRLA, EOMI, Normocephalic Oral: Moist Mucosa Neck: Supple, No Nuchal Rigidity, Trachea Midline, Thyroid Normal Size and Texture Lungs: Clear to auscultation, No wheeze, No rales, Diminished Cardiovascular: Regular rate, Regular Rhythm, Normal S1, Normal S2, No murmurs, No Ectopic Activity Abdomen: Bowel Sounds Present, Soft, Non Tender, Non-Distended Extremities: No clubbing, No cyanosis, No edema, Capillary Refill Less than 3 Seconds Skin: No rashes, No breakdown Musculoskeletal: No Tenderness to Palpation of Joints or Extremities Neurological: Cranial nerves II-XII grossly intact, Neuro grossly intact, Sensory exam intact to light touch and pain, Coordination normal Psych/Mental Status: Normal Affect, Appropriate, Alert and oriented to time, place, person, mood and affect Vital Signs Temp Pulse Resp BP Pulse Ox 97.9 F 86 18 113/59 L 94 09/15/18 16:00 09/15/18 19:28 09/15/18 18:58 09/15/18 16:00 09/15/18 19:00 Oxygen Flow Rate (L/min) 2 Oxygen Delivery Method Nasal Cannula Weight: 64.3 kg Body Mass Index (BMI) 24.7 Finger Stick Blood Glucose 105 Intake and Output for Last 24 Hours 09/13/18 09/14/18 09/15/18 23:59 23:59 23:59 Intake Total 826 / 826 1033 / 1033 Output Total 450 / 450 350 / 350 Balance 376 / 376 683 / 683 Microbiology Past 72 Hours 09/14/18 Unknown Respiratory Panel (PCR) - Final Mucosa - Nasopharyngeal Laboratory Tests Past 24 Hrs 09/15/18 09/15/18 05:25 05:25 WBC 3.7 L RBC 3.85 L Hgb 11.1 L Hct 37.4 MCV 97.1 MCH 28.8 MCHC 29.7 L RDW 12.9 RDW Differential 45.2 H Plt Count 130 L MPV 10.4 Immature Gran % (Auto) 0.000 Neut % (Auto) 81.6 H Lymph % (Auto) 17.3 L [place] % (Auto) 0.8 Eos % (Auto) 0.3 Baso % (Auto) 0.0 Absolute Neuts (auto) 3.0 Absolute Lymphs (auto) 0.64 L Total Counted Not Reportable Sodium 144 Potassium 3.6 Chloride 104 Carbon Dioxide 36.0 H Anion Gap 4 L BUN 10 Creatinine 0.66 Estim Creat Clear Calc 72.17 Est GFR (MDRD) Af Amer 117 Est GFR (MDRD) Non-Af 97 BUN/Creatinine Ratio 15.3 Glucose 143 H Calcium 8.4 L Total Bilirubin 0.50 AST 14 L ALT 15 Alkaline Phosphatase 54 Total Protein 6.6 Albumin 3.2 Globulin 3.4 Albumin/Globulin Ratio 0.9 Medical Necessity - Tobacco Use Smoking Status: Current every day smoker Tobacco Use: Cigarettes Assessment/Plan All Active Problems (Last Reviewed 08/18/18 @ 10:31 by Skylar Geller) Acute and chronic respiratory failure with hypercapnia (Acute) Hypotension arterial (Acute) Nocturnal leg cramps (Acute) Pharyngitis (Acute) History of stroke (Resolved 02/03/17) History of non-ST elevation myocardial infarction (NSTEMI) (Resolved 02/03/17) History of pneumonia (Resolved) Daytime hypersomnia (Acute) H/O: section (Resolved) History of lumpectomy (Resolved) History of cholecystectomy (Resolved) Hemorrhagic cerebrovascular accident (CVA) (Resolved) Metabolic encephalopathy (Resolved) Upper GI bleed (Resolved) Transaminitis (Acute) Elevated serum creatinine (Acute) PRES (posterior reversible encephalopathy syndrome) (Resolved) Acute respiratory failure (Resolved) #1 acute on chronic hypoxemic and hypercarbic respiratory failure-patient will continue on BiPAP at night and when sleeping, pulmonary medicine is participating in her care #2 hypertension #3 hyperlipidemia #4 obstructive sleep apnea-noncompliant with BiPAP therapy #5 chronic anxiety disorder Code Visit Inpatient E&M: 40320 Subs Hosp L2
--- NOTE | 2018-09-15 20:45 | NURSING ---
Pt. agitated, wants to call daughter. Daughter's number not in chart. This nurse called pt. , Oscar, and pt. talked to him. Pt. asked to come to hospital and stay with her and agreed. Pt. very confused at this time and continues to try to get OOB when told not to.
[2018-09-15] MEDS: Atorvastatin Calcium 20 MG Tablet PO (21:31)
[2018-09-15] MEDS: Zolpidem Tartrate 5 MG Tablet 10 MG PO (23:37)
[2018-09-16] VITALS (9 sets, daily range): BP systolic 115–140; BP diastolic 58–65; PULSE 63–77; RESP 16–20; TEMP 36.6–36.7; O2SAT 99–100
--- NOTE | 2018-09-16 00:34 | CPS ---
pt will not keep bipap mask on, re-applied 3-4 times, turned down settings to get her to comply, but pt still won't wear bipap.
[2018-09-16] MEDS: Ipratropium/Albuterol Sulfate 3 ML AMPUL.NEB INHALATION ×2 (07:06→10:58)
[2018-09-16] MEDS: Budesonide Respules 0.5 MG/2 ML AMPUL.NEB. INHALATION (07:06)
--- NOTE | 2018-09-16 07:41 | PCM.PROGNOTE ---
Patient Problems: Active and Suspected Problems (Last Reviewed 08/18/18 @ 10:31 by Skylar Geller) Acute and chronic respiratory failure with hypercapnia (Acute) Hypotension arterial (Acute) Subjective: The patient was seen and examined at the bedside this morning. Events from the last 24 hours have been reviewed. The patient is currently afebrile, hemodynamically stable and maintaining appropriate oxygen saturations on her baseline 2 L/min requirement. The patient was noncompliant with the use of BiPAP overnight. Although hospice/palliative care came to evaluate the patient yesterday, she was apparently too confused to make any arrangements. The patient did receive hydroxyzine and 10 mg of Ambien last night. Objective: The patient's most recent lab work, culture data and imaging studies have all been personally reviewed. - Physical Exam General: Alert, Cooperative, No apparent distress HEENT: Atraumatic, PERRLA, Normocephalic Oral: No Gingival or Mucosal Lesions/ Ulcerations Neck: Supple, No Nodes, Trachea Midline Lungs: No rhonchi, No wheeze, No rales, Diminished Cardiovascular: Regular rate, Regular Rhythm, Normal S1, Normal S2, No murmurs Abdomen: Bowel Sounds Present, Soft, Non Tender Extremities: No clubbing, No cyanosis, No edema Skin: No breakdown Musculoskeletal: No Tenderness to Palpation of Joints or Extremities Lymphatic: No Cervical, Supraclavicular, or Inguinal Adenopathy Neurological: Neuro grossly intact Psych/Mental Status: Flat Affect Vital Signs Temp Pulse Resp BP Pulse Ox 36.6 C 65 20 H 140/65 H 100 09/16/18 03:21 09/16/18 07:00 09/16/18 03:21 09/16/18 03:21 09/16/18 03:21 Oxygen Flow Rate (L/min) 2 Oxygen Delivery Method Nasal Cannula Weight: 142 lb 3.17 oz Body Mass Index (BMI) 24.7 Finger Stick Blood Glucose 105 Intake and Output for Last 24 Hours 09/14/18 09/15/18 09/16/18 23:59 23:59 23:59 Intake Total 826 / 826 1153 / 1153 150 / 150 Output Total 450 / 450 350 / 350 Balance 376 / 376 803 / 803 150 / 150 Microbiology Past 72 Hours 09/14/18 Unknown Respiratory Panel (PCR) - Final Mucosa - Nasopharyngeal Labs (Last 48 Hours) 09/14/18 09/14/18 09/14/18 11:45 11:45 11:45 WBC 6.3 RBC 4.14 L Hgb 12.0 Hct 41.5 MCV 100.2 H MCH 29.0 MCHC 28.9 L RDW 13.6 RDW Differential 49.9 H Plt Count 162 MPV 10.5 Immature Gran % (Auto) 0.000 Neut % (Auto) 64.4 Lymph % (Auto) 24.9 Morehouse % (Auto) 7.3 Eos % (Auto) 2.9 Baso % (Auto) 0.5 Absolute Neuts (auto) 4.0 Absolute Lymphs (auto) 1.56 Total Counted Not Reportable Specimen Type Sample Site pH Bicarbonate Actual POC Total CO2 Base Excess O2 Saturation O2 % ABG pCO2 ABG pO2 Royal Test Respiration Rate O2 Delivery Device Liter Flow EPAP IPAP Blood Gas Notified Whom Blood Gas Notified Time Sodium 144 Potassium 4.0 Chloride 100 Carbon Dioxide 42.0 H Anion Gap 2 L BUN 13 Creatinine 0.73 Estim Creat Clear Calc 65.25 Est GFR (MDRD) Af Amer 104 Est GFR (MDRD) Non-Af 86 BUN/Creatinine Ratio 17.9 Glucose 90 Lactic Acid 0.8 Calcium 8.6 Total Bilirubin AST ALT Alkaline Phosphatase Total Protein Albumin Globulin Albumin/Globulin Ratio 09/14/18 09/14/18 09/15/18 12:01 17:24 05:25 WBC 3.7 L RBC 3.85 L Hgb 11.1 L Hct 37.4 MCV 97.1 MCH 28.8 MCHC 29.7 L RDW 12.9 RDW Differential 45.2 H Plt Count 130 L MPV 10.4 Immature Gran % (Auto) 0.000 Neut % (Auto) 81.6 H Lymph % (Auto) 17.3 L Morehouse % (Auto) 0.8 Eos % (Auto) 0.3 Baso % (Auto) 0.0 Absolute Neuts (auto) 3.0 Absolute Lymphs (auto) 0.64 L Total Counted Not Reportable Specimen Type ART ART Sample Site L Radial L Radial pH 7.28 L 7.35 Bicarbonate Actual 43.9 H 39.8 H POC Total CO2 47 42 Base Excess 17 H 14 H O2 Saturation 97 91 L O2 % 30 ABG pCO2 93.2 H* 72.8 H* ABG pO2 105 H 68 L Royal Test POS POS Respiration Rate 12 O2 Delivery Device Nasal Can Bi / C PAP Liter Flow 4.0 EPAP 8 IPAP 16 Blood Gas Notified Whom ED MD HOSP Blood Gas Notified Time 1150 1720 Sodium Potassium Chloride Carbon Dioxide Anion Gap BUN Creatinine Estim Creat Clear Calc Est GFR (MDRD) Af Amer Est GFR (MDRD) Non-Af BUN/Creatinine Ratio Glucose Lactic Acid Calcium Total Bilirubin AST ALT Alkaline Phosphatase Total Protein Albumin Globulin Albumin/Globulin Ratio 09/15/18 05:25 WBC RBC Hgb Hct MCV MCH MCHC RDW RDW Differential Plt Count MPV Immature Gran % (Auto) Neut % (Auto) Lymph % (Auto) Morehouse % (Auto) Eos % (Auto) Baso % (Auto) Absolute Neuts (auto) Absolute Lymphs (auto) Total Counted Specimen Type Sample Site pH Bicarbonate Actual POC Total CO2 Base Excess O2 Saturation O2 % ABG pCO2 ABG pO2 Royal Test Respiration Rate O2 Delivery Device Liter Flow EPAP IPAP Blood Gas Notified Whom Blood Gas Notified Time Sodium 144 Potassium 3.6 Chloride 104 Carbon Dioxide 36.0 H Anion Gap 4 L BUN 10 Creatinine 0.66 Estim Creat Clear Calc 72.17 Est GFR (MDRD) Af Amer 117 Est GFR (MDRD) Non-Af 97 BUN/Creatinine Ratio 15.3 Glucose 143 H Lactic Acid Calcium 8.4 L Total Bilirubin 0.50 AST 14 L ALT 15 Alkaline Phosphatase 54 Total Protein 6.6 Albumin 3.2 Globulin 3.4 Albumin/Globulin Ratio 0.9 Microbiology 09/14/18 Unknown Mucosa - Nasopharyngeal Respiratory Panel (PCR) - Final Clinical Impression(s) from Imaging Studies Chest X-Ray 09/14/18 12:27 IMPRESSION: Hyperinflation. The lungs are clear. Electronically Signed: Vinny Mcghee, at 13:16 EDT , Service support , Chest CTA 09/14/18 13:07 IMPRESSION: Hyperinflation. Emphysematous changes worse in the upper lobes. Mild scarring in the lingular segment of the left upper lobe. Electronically Signed: Vinny Mcghee, at 15:01 EDT , Service support , Chest X-Ray 09/14/18 15:39 IMPRESSION: The tip of the right subclavian catheter is at the junction of the superior vena cava and right atrium. Electronically Signed: Vinny Mcghee, at 16:06 EDT , Service support , Medical Necessity - Tobacco Use Smoking Status: Current every day smoker Tobacco Use: Cigarettes Assessment/Plan All Active Problems (Last Reviewed 08/18/18 @ 10:31 by Skylar Geller) Acute and chronic respiratory failure with hypercapnia (Acute) Hypotension arterial (Acute) Nocturnal leg cramps (Acute) Pharyngitis (Acute) History of stroke (Resolved 02/03/17) History of non-ST elevation myocardial infarction (NSTEMI) (Resolved 02/03/17) History of pneumonia (Resolved) Daytime hypersomnia (Acute) H/O: section (Resolved) History of lumpectomy (Resolved) History of cholecystectomy (Resolved) Hemorrhagic cerebrovascular accident (CVA) (Resolved) Metabolic encephalopathy (Resolved) Upper GI bleed (Resolved) Transaminitis (Acute) Elevated serum creatinine (Acute) PRES (posterior reversible encephalopathy syndrome) (Resolved) Acute respiratory failure (Resolved) RECOMMENDATIONS: 1. Continue duo nebs and budesonide as ordered. 2. The patient is maintaining oxygen saturations on her baseline 2 L/min. 3. Strongly encouraged the use of BiPAP therapy with naps and nightly. 4. Discontinue hydroxyzine and Ambien. 5. Recommend palliative care evaluation. IMPRESSIONS: 1. Acute on chronic hypoxemic and hypercarbic respiratory failure The patient has a known history of end-stage COPD along with a 2 L/min baseline supplemental oxygen requirement. She is a chronic CO2 retainer. The patient did complete a sleep study previously and was started on BiPAP therapy in hopes that this would alleviate a component of her chronic CO2 retention. However, the patient was subsequently intolerant of the aforementioned therapy due to anxiety and self-reported PTSD. Therefore, BiPAP therapy was discontinued completely. She is currently on maximal therapy from an inhaler perspective and continues to utilize her rescue inhaler on a daily basis. CTA chest obtained on presentation revealed chronic findings including emphysematous changes, without an acute cardiopulmonary process. I do suspect that given the severity of the patient's underlying obstructive lung disease she needs to be on some form of ventilatory support on an outpatient basis. However, she has been resistant to this idea. CODE STATUS was discussed with the patient. She is in agreement with DNR CCA. The patient needs to be evaluated by palliative care. Her respiratory status is baseline. This note was generated with [employer] dictation software. It may contain incorrect words, spelling, and punctuation that were not noted in checking the note before signing. Code Visit Inpatient E&M: 81227 Subs Hosp L2
[2018-09-16] MEDS: Aspirin E.C. 81 MG Tablet PO (09:20)
[2018-09-16] MEDS: Folic Acid 1 MG Tablet PO (09:20)
[2018-09-16] MEDS: hydrOXYzine PAM 25 MG Capsule 50 MG PO (09:20)
[2018-09-16] MEDS: Spironolactone 25 MG Tablet PO (09:20)
[2018-09-16] MEDS: Enoxaparin 40 MG/0.4 ML Syringe SC (09:20)
[2018-09-16] MEDS: Carvedilol 12.5 MG Tablet PO (09:20)
[2018-09-16] MEDS: Pantoprazole Sodium 40 MG Tablet PO (09:20)
--- NOTE | 2018-09-16 12:13 | CASEMGMT ---
Addendum entered by Farzaneh Macdonald 09/16/18 13:51: Tramaine from Palliative/Hospice said patient was asking about Hospice. She said patient would like to sign papers and then have Hospice evaluate her at home. SW will let physician know this information. Farzaneh HANKS Original Note: Addendum entered by Farzaneh Macdonald 09/16/18 12:38: Received call from Tramaine at Palliative Care. She asked SW if patient wanted to meet with them alone or if she wanted family. SW spoke with patient and she said she is fine being alone. SW let Tramaine know this and she said she will be here around 1p. Farzaneh MALHOTRA SQL DATABASE ADMINISTRATOR Original Note: Per Dr Flannery patient is now alert and oriented. He asked if Palliative Care could come back and talk with patient. SW called Palliative Care and spoke with Elda. She said she will have someone from admissions call SW when they will be able to come and talk with patient. Farzaneh HANKS
--- NOTE | 2018-09-16 16:30 | DCINST_ITS ---
- Discharge Diagnoses Current Active Problems: Current Active and Chronic Problems (Last Reviewed 08/18/18 @ 10:31 by Skylar Geller) Acute and chronic respiratory failure with hypercapnia (Acute) Chronic obstructive pulmonary disease with acute exacerbation (Chronic) Hypotension arterial (Acute) You will use the following diet at home:: No restrictions Your food should be the consistency of: Regular Your liquids should be the consistency of: Regular/Thin Discharge Activity: Return to Normal Activity Weight Bearing Status: Full weight bearing Additional Instructions: CONTINUE OXYGEN USE AT HOME BEFORE Allergies/Adverse Reactions: Allergies tetanus and diphtheria toxoids [tetanus & diphtheria toxoids] Allergy (Verified 08/18/18 10:30) Hives Medications to take at Discharge Albuterol IH (ProAir) [Proair Hfa] 1 puff INHALATION Q4H PRN PRN #1 inhaler 09/17/17 aspirin 81 mg tablet,delayed release 81 mg PO DAILY #90 tab 03/02/18 Carvedilol [Coreg (Beta Indy)] 12.5 mg PO BID 09/14/18 Escitalopram Oxalate [Lexapro] 15 mg PO DAILY 09/14/18 Folic Acid 1 mg PO DAILY 09/14/18 Multivitamin with Minerals [Multiple Vitamin] 1 tab PO DAILY 09/14/18 Pantoprazole Sodium 40 mg PO QAM 09/14/18 Spironolactone 12.5 mg PO DAILY 09/14/18 Acetaminophen [Tylenol Tablet] 650 mg PO Q6H PRN PRN tablet 09/16/18 Atorvastatin Calcium [Lipitor] 20 mg PO QHS #30 tab 09/16/18 Ipratropium/Albuterol Sulfate [Duoneb] 3 ml INHALATION 4X/DAY #120 ampul.neb 09/16/18 Zolpidem Tartrate [Ambien] 5 mg PO QHS PRN #1 tab 09/16/18 The following prescriptions were given: Atorvastatin Calcium [Lipitor] 20 mg PO QHS #30 tab Zolpidem Tartrate [Ambien] 5 mg PO QHS PRN #1 tab PRN Reason: insomnia Ipratropium/Albuterol Sulfate [Duoneb] 3 ml INHALATION 4X/DAY #120 ampul.[facility] Primary Care Physician: Glenn Ulloa MD [Primary Care Provider] - Please follow up with your Primary Care Physician in: IN 2 WEEKS Test Results: Test results from this visit will be discussed in further detail at your follow- up appointment, if applicable. Please Follow Up With: HOSPICE When: SCHEDULED
--- NOTE | 2018-09-16 17:33 | NURSING ---
Central line dc'd tip intact. 3 sutures removed. Pressure applied for 5 minutes. Vaseline guaze, 2x2 and secured with tegaderm. Instrusted to lie flat for 30 minutes. Family at bedside assist.
--- NOTE | 2018-09-18 15:53 | PCM.DC.SUM ---
Discharge Date and Diagnosis Date of Admission: 09/14/18 Date of Discharge: 09/16/18 - Primary Discharge Diagnosis #1 acute on chronic hypoxemic and hypercarbic respiratory failure secondary to chronic obstructive pulmonary disease #2 hypertension #3 hyperlipidemia #4 obstructive sleep apnea-noncompliant with BiPAP therapy #5 chronic anxiety disorder #6 chronic obstructive pulmonary disease #7 metabolic encephalopathy - Secondary Discharge Diagnosis Chronic Problems (Last Reviewed 08/18/18 @ 10:31 by Skylar Geller) Chronic obstructive pulmonary disease with acute exacerbation (Chronic) Dyspnea on exertion (Chronic) TIO (obstructive sleep apnea) (Chronic) Unable to tolerate Pap therapy, discontinuing use History of ETOH abuse (Chronic) History of DVT of lower extremity (Chronic 02/11/17) Rt lower extremity pinky vein Acid-base disorder, mixed (Chronic) Insomnia (Chronic) Anxiety (Chronic) Hyperlipidemia (Chronic) Hypertension (Chronic) Heart failure with reduced ejection fraction (Chronic) COPD (chronic obstructive pulmonary disease) (Chronic) Hospital Course and Treatment Operations: None Procedures: None Summary of Care Provided: The patient is a 62 year old F seen in the emergency room was a [facility] after being brought in by family due to confusion, it was found that the patient was in acute and chronic respiratory failure, pulmonary medicine was contacted, patient has central line inserted, chest x-ray did not show any evidence of pneumonia, CTA was obtained which showed no evidence of pulmonary embolus or pneumonia. Patient was admitted to ICU, pulmonary medicine participated in her care, patient stabilized and was transferred to PCU. Patient was seen in the hospital at her request by hospice who would follow-up with the patient as an outpatient. Physical exam: On examination she appeared in good health and spirits. Vital signs as documented. Skin warm and dry and without overt rashes. Neck without JVD. Lungs clear, breath sounds are diminished. Heart exam notable for regular rhythm, normal sounds and absence of murmurs, rubs or gallops. Abdomen unremarkable and without evidence of organomegaly, masses, or abdominal aortic enlargement. Extremities nonedematous. Neuro: Cranial nerves II through XII are grossly intact, no focal motor deficits were noted, sensation to light touch and pinprick is intact. Psych: Patient is alert and oriented x3, she does not appear anxious or depressed On 09/16/18, patient was seen and examined and discharged in stable condition to home - Physical Exam Vital Signs Temp Pulse Resp BP Pulse Ox 98.1 F 65 16 124/58 H 100 09/16/18 15:20 09/16/18 15:20 09/16/18 15:20 09/16/18 15:20 09/16/18 15:20 Oxygen Flow Rate (L/min) 2 Oxygen Delivery Method Nasal Cannula Weight: 64.5 kg Body Mass Index (BMI) 24.7 Finger Stick Blood Glucose 105 Intake and Output for Last 24 Hours 09/16/18 09/17/18 09/18/18 23:59 23:59 23:59 Intake Total 270 / 270 Balance 270 / 270 Discharge Activity: Return to Normal Activity Weight Bearing Status: Full weight bearing Home Medications: Medications to take at Discharge Albuterol IH (ProAir) [Proair Hfa] 1 puff INHALATION Q4H PRN PRN #1 inhaler 09/17/17 aspirin 81 mg tablet,delayed release 81 mg PO DAILY #90 tab 03/02/18 Carvedilol [Coreg (Beta Indy)] 12.5 mg PO BID 09/14/18 Escitalopram Oxalate [Lexapro] 15 mg PO DAILY 09/14/18 Folic Acid 1 mg PO DAILY 09/14/18 Multivitamin with Minerals [Multiple Vitamin] 1 tab PO DAILY 09/14/18 Pantoprazole Sodium 40 mg PO QAM 09/14/18 Spironolactone 12.5 mg PO DAILY 09/14/18 Acetaminophen [Tylenol Tablet] 650 mg PO Q6H PRN PRN tablet 09/16/18 Atorvastatin Calcium [Lipitor] 20 mg PO QHS #30 tab 09/16/18 Ipratropium/Albuterol Sulfate [Duoneb] 3 ml INHALATION 4X/DAY #120 ampul.neb 09/16/18 Zolpidem Tartrate [Ambien] 5 mg PO QHS PRN #1 tab 09/16/18 Following Prescrptions Were Given to Patient: Atorvastatin Calcium [Lipitor] 20 mg PO QHS #30 tab Zolpidem Tartrate [Ambien] 5 mg PO QHS PRN #1 tab PRN Reason: insomnia Ipratropium/Albuterol Sulfate [Duoneb] 3 ml INHALATION 4X/DAY #120 ampul.[facility] Primary Care Physician: Glenn Ulloa MD [Primary Care Provider] - Please follow up with your Primary Care Physician in: IN 2 WEEKS Please Follow Up With: HOSPICE When: SCHEDULED Disposition: Home with Hospice Minutes spent on discharge:: 32 Patient Condition:: Stable Medical Necessity - Tobacco Use Smoking Status: Current every day smoker Tobacco Use: Cigarettes Meaningful Use Info Meaningful Use Diagnoses (Choose all that apply): None applicable Code Visit Inpatient E&M: 60602 Disch Hosp
--- NOTE | 2018-09-20 13:49 | CASEMGMT ---
FINESSE LALA Discharge Follow-Up Phone Call. Lace: 12 Strata: 4 Discharge Date: 09/16/18 Adm Dx: Resp failure. Call placed to Hospice and spoke with Jennifer to inquire if pt is receiving Hospice services. Jennifer states Hospice is currently on hold. She states they did see pt on Wednesday and that pt has not made a decision to go on Hospice at this time, that she wanted some more time to think about it. Jennifer states they will be following up with pt again this Wednesday. Attempted discharge follow-up phone call. No answer. [place] [facility] [place] to return call to DEVELOPMENTAL PSYCHOLOGISTCarla KILPATRICK CM, if she has any questions/concerns re: discharge instructions, medications, or follow-up appts. Carla's phone number provided. Korin BROWN RN CM
== END 2018-09-16 18:15 | disposition home or self-care (01) | DRG 189 ==
LOC: ED 15:16 → ICU 16:25 → PCU 09-15 09:18
PROVIDERS: Admitting Provider Internal Medicine; Emergency Provider Emergency Medicine; Family Provider Internal Medicine; PCP Internal Medicine; Referring Provider Internal Medicine; Visit Provider Internal Medicine
DX: J96.21 Acute and chronic respiratory failure with hypoxia (principal); G93.41 Metabolic encephalopathy; J44.1 Chronic obstructive pulmonary disease with (acute) exacerbation; I50.20 Unspecified systolic (congestive) heart failure; J96.22 Acute and chronic respiratory failure with hypercapnia; E78.5 Hyperlipidemia, unspecified; G47.33 Obstructive sleep apnea (adult) (pediatric); F41.9 Anxiety disorder, unspecified; I11.0 Hypertensive heart disease with heart failure; F17.210 Nicotine dependence, cigarettes, uncomplicated; Z66 Do not resuscitate; I25.2 Old myocardial infarction; Z99.81 Dependence on supplemental oxygen; Z86.718 Personal history of other venous thrombosis and embolism
CPT/HCPCS: 36415; 36600; 71045; 71046; 71275; 80048; 80053; 82803; 83605; 85025; 87040; 87633; 93005; 93306; 94002; 94003; 94640; 97162; 97166; 99285; J7030; J7040; Q9967; A4216; C1751

== ENCOUNTER 2018-09-19 11:30 | Outpatient (RCR) | payer MEDICARE, SELFPAY ==
[2018-07-22 13:12] VITALS: BMI 24.7
--- NOTE | 2018-08-09 14:16 | HP.SP.AD ---
History - History Date of Eval: 08/09/18 Medical Diagnosis (from RX): Cognitive Deficits Date of Onset of Diagnosis: 02-18-17 Previous speech therapy: No Results: Unknown during hospital stay. Other Relevant Medical History/Diagnoses/Surgery: Heart attack, COPD, appendisx and gallbladder removed. Smoking Status: Never smoker Hx Smoking: Yes Years Smokin Hx Smoking Cessation Date: 20 years ago Hx Tobacco Use: No - Pain Is pain an issue with your current prescribed condition?: No - Personal Education History: 11th grade. Occupation: Retired. Right Hearing Abillity: Normal Left Hearing Abillity: Normal Visual Assistive Devices: None Patients Living Arrangements: With Significant Other Patient Allergies - Allergies Allergies tetanus and diphtheria toxoids [tetanus & diphtheria toxoids] Allergy (Verified 07/20/18 14:55) Hives Objective Cog/Ling/Com - Test Administered Isgpcycwn-Uouxhafkyv-Qusdznmkovbga Assessment Administered: Yes Bqkwrcyjc-Owjaiikire-Lgmcebnoxsofb Assessment: Cognitive ? Linguistic skills were evaluated using patient/family interview, skilled observation and informal evaluation through tasks completed by the patient. - Orientation Orientation: Person, Place, Date, Birthdate - Answer Yes/No Questions Simple: WNL Complex: WFL - Follows Commands 1 Step: WNL 2 Step: WNL Complex: WNL - Recall Repeating Digits: Repeated up to 6 digits. Repeating Sentences: Repeated up to 6 word sentences. Longer sentences were not word for word but maintained integrety of the message. Comments: When given a 5 sentence story with immediate recall of details she was only able to recall 11/17 details. With a 10 minute delay she reduced to 4/17 details. With cues she was able to recall only 2 extra details. - Medication Reading a medication label: Moderate - Cognitive Linguistic Supervision/Saftey Managing medications: Moderate - Executive Function Comments Comments: Luiza was able to read a medication label but when asked questions regarding it she was only 50% accurate. She was not able to answer how to refill it but when asked how to refill her own prescriptions she was able to answer accurately. She reports that she is able to take her own medication at home functionally. Her significant other did not stay during the evaluation, therefore, it is unknown if she is compliant with medications. Cognitive Linguistic Comments - Comments Writing Luiza reports that she has difficulty with writing. She states that she can write checks but she has double vision which makes it more difficult. She also stated that if she gets interupted when writing a check she has to start over to determine where she was at to finish the task. Plan - Plan Plan: Speech therapy is warranted for cognitive deficits characterized by decreased recall skills and executive function skills. Further testing is warranted at this time. - Recommendations Treatment Warranted: Yes - Frequency Frequency: 1x/Week Duration: 2 Months Visits in this POC: 8 - Prognosis Prognosis: Good - Goals that are Established: Determination:: Goals will be added/modified as deemed necessary and appropriate. Therapy will be discontinued when results of re-evaluation indicate therapy is no longer needed or lack of progress has been documented. - Goal #1-5 Goal #1: Luiza will complete recall tasks using recall strategies with 80% accuracy on 3 consecutive sessions. Goal #2: Luiza will participate in further cognitive function testing with goals added as necessary and appropriate. Education - Patient has Indicated that the Following Identified Educational Needs: Cognitively Impaired - Patient Instruction Patient Education: Diagnosis, Treatment Plan, Goals Person Taught: Patient Teaching Method: Discussion Response to teaching: Reinforcement needed
--- NOTE | 2018-11-07 17:05 | HP.SP.DC_ITS ---
ST Discharge Summary - Discharged: Discharge: Luiza Mayes is discharged from [facility] as of November 07, 2018. She was treated for a total of 4 sessions. After her hospitalization in September she reported that she had a hospice consult the week after. No further visits were scheduled after September 19 due to this and she will be discharged. She completed the Continued testing by [facility] and all scores were all moderate or severe in range. Total was severe in range for cognitive skills. She was unable to complete a checkbook. A copy of this discharge will be sent to her referring physician.
== END 2018-09-19 19:00 | disposition home or self-care (01) ==
LOC: SP 11:30
PROVIDERS: Family Provider Internal Medicine; PCP Internal Medicine; Referring Provider Nurse Practitioner Acute Care; Visit Provider Nurse Practitioner Acute Care
DX: I69.928 Other speech and language deficits following unspecified cerebrovascular disease (principal); R41.3 Other amnesia
CPT/HCPCS: 92507; 92523

== ENCOUNTER 2018-10-15 12:45 | Inpatient (IN) | payer MEDICARE, SELFPAY ==
[2018-09-14 16:46] VITALS: BMI 24.7
[2018-10-15] VITALS (28 sets, daily range): BP systolic 64–133; BP diastolic 24–84; PULSE 47–69; RESP 11–18; TEMP 35.9–37.3; O2SAT 70–100; BMI 25.3; BMI 25.7; BMI 25.8
[2018-10-15] MEDS: 0.9% Normal Saline 1,000 ML 999 ML IV ×2 (13:00→14:00)
--- NOTE | 2018-10-15 13:06 | CT_ITS ---
STUDY: CT BRAIN WITHOUT CONTRAST REASON FOR EXAM: Female, 62 years old. Confusion RADIATION DOSAGE (If Supplied By Facility): CTDIvol = ( 44.99 ) mGy, DLP = ( 745.49 ) mGycm TECHNIQUE: Transaxial CT imaging of the brain was performed without administration of intravenous contrast material. Individualized dose optimization techniques were used for this CT. COMPARISON: 09/13/2017 FINDINGS: There are stable old infarcts in the right occipital and left parietal lobes with encephalomalacia. There is no acute bleed or infarct. There are normal white matter tracts. The ventricles are normal in configuration. There is no hydrocephalus. The visualized paranasal sinuses are clear. The mastoid air cells are well aerated. There is no skull fracture. 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 No acute intracranial abnormality. Electronically Signed: Jhony Arce, at 14:43 EDT Tel , Service support ,
--- NOTE | 2018-10-15 13:06 | EKG12_ITS ---
Test Reason : SOB Blood Pressure : / mmHG Vent. Rate : 051 BPM Atrial Rate : 051 BPM P-R Int : 140 ms QRS Dur : 086 ms QT Int : 474 ms P-R-T Axes : 069 056 057 degrees QTc Int : 436 ms Sinus bradycardia Inferior infarct , age undetermined Abnormal ECG Confirmed by MOISES MENDES, LINDSEY ([id number]), tape editor AJ AYOUB ([id number]) on 10/18/2018 4:12:10 PM Referred By: Mackenzie Avalos Confirmed By:LINDSEY DE LEON MD
--- NOTE | 2018-10-15 13:06 | RAD_ITS ---
STUDY: X-RAY CHEST REASON FOR EXAM: Female, 62 years old. Weakness TECHNIQUE: Frontal view of the chest COMPARISON: 09/14/2018 FINDINGS: The lungs are clear. There are no pleural effusions. There is no pneumothorax. The heart is normal in size. The visualized osseous structures are within normal limits. RAD/Chest 1 View (Portable) IMPRESSION: No acute thoracic pathology. Electronically Signed: Jhony Arce, at 14:10 EDT Tel , Service support ,
[2018-10-15] MEDS: Ipratropium/Albuterol Sulfate 3 ML AMPUL.NEB INHALATION ×3 (13:18→22:01)
[2018-10-15] MEDS: 0.9% Normal Saline 1,000 ML 150 ML IV ×2 (13:19→17:49)
[2018-10-15 13:20] LABS: Bedside Glucose 101 mg/dL (70-110)
[2018-10-15 13:27] LABS: Absolute Lymphocyte Count 1.46 X10^3/ul (0.83-4.51); Absolute Neutrophil Count 4.1 X10^3/uL (2.0-7.7); Basophil# 0.02 X10^3/uL; Basophil% 0.3 % (0-1); Eosinophil# 0.17 X10^3/uL; Eosinophils% 2.7 % (0-5); Hemoglobin 11.7 g/dl (12.0-15.0); Lymphocyte # 1.46 X10^3/ul (4.0); Lymphocyte % 22.9 % (19-41); Mean Corp Hgb Conc 29.3 g/gl (32-36); Mean Corpuscular Hgb 28.9 pg (27.0-32.0); Mean Corpuscular Volume 98.8 fL (81-99); Mean Platelet Vol. 10.1 fl (6.2-12.0); Monocyte# 0.65 X10^3/uL; Monocyte% 10.2 % (0-10); Neutrophil # 4.07 X10^3/uL (2.7-7.7); Neutrophil % 63.7 % (47-70); POSITIVE COUNT NO; POSITIVE DIFFERENTIAL NO; POSITIVE MORPHOLOGY NO; Platelet Count 162 K/mm3 (150-450); RBC Distribution Width CV 13.1 % (11.6-14.6); RBC Distribution Width SD 47.8 fl (35.1-43.9); Red Blood Count 4.05 M/mm3 (4.2-5.4); White Blood Count 6.4 K/mm3 (4.4-11.0)
[2018-10-15 13:42] LABS: ALB/GLOB Ratio 1.1 RATIO (0.9-2.4); AST(SGOT) 296 U/L (15-37); Alanine Aminotransfer ALT/SGPT 167 U/L (13-56); Albumin, Serum 3.5 g/dL (3.2-5.0); Alkaline Phosphatase 153 U/L (45-117); Anion Gap -1 (5-15); BUN 18 mg/dL (7-18); BUN/Creat Ratio 12.9 RATIO (10-20); Calcium,Total 8.4 mg/dL (8.5-10.1); Chloride 102 mmol/L (98-107); EST Glomerular Filtration Rate 40 mL/min (>60); Est Glom Filt Rate - Afr Amer 49 mL/min (>60); Estimated Creatinine Clearance 35.52 ml/min; Globulin 3.1 g/dL (2.2-4.2); Glucose 102 mg/dL (74-106); Potassium 4.1 mmol/L (3.5-5.1); Protein, Total 6.6 g/dL (6.4-8.2); Sodium Level 143 mmol/L (136-145)
--- NOTE | 2018-10-15 13:42 | CPS ---
CO2 critical value, results given to Dr Pavon by Franny LOPEZ for rerun.
[2018-10-15 13:45] LABS: Allen Test POS; Base Excess 15 mmol/L (-2 to +2); Bicarbonate 43.2 mmol/L (22-26); Blood Gas Specimen Type ART; O2 Delivery Device Nasal Can; PO2 81 mmHG (75-100); SITE R Radial; SO2 91 % (95-99); Time Given 1334; Total Carbon Dioxide 47 mmol/L; pCO2 109.3 mmHg (35-45); pH 7.21 (7.35-7.45)
--- NOTE | 2018-10-15 15:00 | ED.DCSUM_ITS ---
- ER Visit Summary Date of Service: 10/15/18 Chief Complaint: [Mental status change] History of Present Illness: The patient is a 62 F [presents the emergency department with decreased mental status this morning. History comes from patient's brother and boyfriend. The boyfriend states that the patient felt fatigued last evening and went to bed relatively early. She woke up several times throughout the night. Patient had complained of a headache last night and some ringing in her ears. This morning patient did vomit x2. Boyfriend had a hard time waking her up this morning. EMS was called. Patient's blood sugar was normal on EMS arrival. Patient normally wears 2 L nasal cannula at home. She has a history of severe COPD. On arrival patient somnolent and poor historian and really cannot give me much history. Patient is able to answer yes and no and she denies any headache currently. She denies chest pain. She denies abdominal pain. She denies any shortness of breath.] Physical Examination: [HEENT-PERRLA, EOMI. Cranial nerves II through XII grossly intact. TMs clear. Mucous membranes moist. No adenopathy. Cardiovascular-regular rate and rhythm without murmur or ectopy Lungs-diminished breath sounds bilaterally with some faint expiratory wheezes noted. No accessory muscle use or retractions. Abdomen-normoactive bowel sounds, soft, nontender, no rebound or rigidity, no peritoneal signs. Extremities-intact ?4, normal range of motion, normal pulses, atraumatic] Test Results: [EKG obtained arrival shows sinus rhythm with a rate of 51 bpm with old inferior infarct noted. CBC with differential showed white count 6.4, hemoglobin 11.7, hematocrit 40, placed 162. Chemistries unremarkable. LFTs were elevated with alk phos at 153, ALT 167, AST 296. Troponin was less than 0.015. Blood gas obtained on arrival showed a pH of 7.2 with a CO2 of 109. Ammonia level also was elevated at 60.] Chest x-ray showed nothing acute. CT scan of the brain without contrast showed old infarcts otherwise nothing acute. Emergency Department Course and Treatment: [Patient was started on BiPAP and she was given a DuoNeb aerosol and given Solu-Medrol 125 mill grams IV.] Treatment Plan: [Admit] Disposition: [Admit] Impression: [Respiratory failure Hypercarbia Confusion Elevated liver enzymes Elevated ammonia] This note was generated with [employer] dictation software. It may contain incorrect words, spelling, and punctuation that were not noted in review of the chart prior to signing ED Disposition - Plan for ED Patient: Referrals: Glenn Ulloa MD [Primary Care Provider] -
[2018-10-15] MEDS: MethylPREDNISolone 125 MG/2 ML Vial IV (15:19)
[2018-10-15] MEDS: fentaNYL drip 100 ML 2.5 MCG CONT INF (15:45)
--- NOTE | 2018-10-15 15:47 | RAD_ITS ---
STUDY: X-RAY CHEST REASON FOR EXAM: Female, 62 years old. Tube placement TECHNIQUE: Frontal view of the chest COMPARISON: 10/15/2018 FINDINGS: There is an endotracheal tube with its tip approximately 3 cm above the claude. There is an enteric tube noted with tip in the distal stomach. The lungs are clear. There are no pleural effusions. There is no pneumothorax. The heart is normal in size. The visualized osseous structures are within normal limits. RAD/Chest 1 View (Portable) IMPRESSION: Satisfactory position of the support lines and tubes. No acute thoracic pathology. Electronically Signed: Jhony Arce, at 16:15 EDT Tel , Service support ,
--- NOTE | 2018-10-15 15:47 | ED.VISSUMM ---
- ER Visit Summary Date of Service: 10/15/18 Chief Complaint: [Addendum to initial dictation] History of Present Illness: The patient is a 62 F [] Physical Examination: [] Test Results: [] Emergency Department Course and Treatment: [Repeat ABG after more than half an hour on BiPAP revealed that patient's CO2 continues to climb even though this was a venous gas. Patient with continued confusion. Decision was made to intubate the patient. Patient was intubated after being medicated with etomidate and succinyl choline. Intubated with a 7.5 ET tube. Patient placed on a ventilator. Patient was sedated with fentanyl continuous infusion. Post intubation x-ray will be obtained and reviewed. Patient did have good color change on capnography. Patient had bilateral breath sounds noted.] Treatment Plan: [Admit to ICU] Disposition: [Admit] Impression: [Respiratory failure Hypercarbia] This note was generated with [employer] dictation software. It may contain incorrect words, spelling, and punctuation that were not noted in review of the chart prior to signing ED Disposition - Plan for ED Patient: Referrals: Glenn Ulloa MD [Primary Care Provider] -
[2018-10-15 15:48] LABS: Red Blood Cells-Urine 0 SEEN /hpf (0-5)
[2018-10-15 15:55] LABS: Color, Urine Yellow (Yellow); Glucose, Dipstick Normal (Normal); Ketone-Dipstick Negative (Negative); Leukocyte Esterase-Dipstick 25 /ul (Negative); Nitrite-Dipstick Negative (Negative); Occult Blood-Urine 10 /ul (Negative); Protein-Dipstick 15 mg/dl (Negative); Specific Gravity, Urine 1.015 (1.002-1.030); Urine Bilirubin Dipstick 1 mg/dL (Negative); Urine Clarity Clear (Clear); Urine Urobilinogen 4 mg/dl (Normal)
--- NOTE | 2018-10-15 16:02 | ED.RN ---
RESPIRATORY CONCERNED ABOUT SWELLING AROUND THE NECK AREA, THIS RN SPOKE WITH THE MD. [facility]. NO NEW ORDERS GIVEN.
[2018-10-15 16:10] LABS: White Blood Cells 25-50 SEEN /hpf (0-5)
[2018-10-15 16:11] LABS: Bacteria 1+ /hpf (None Seen); Hyaline Cast 0-5 SEEN /lpf (0-5); Mucous, Urine 2+ /hpf (<or=2+); Squamous Epithelial Cells - UA 5-10 SEEN /hpf (5-10); Transitional Epithelial - Ur 0-5 SEEN /hpf (0-5)
[2018-10-15 16:12] LABS: Fine Granular Cast- Urine 0-5 SEEN /lpf (0-5)
--- NOTE | 2018-10-15 16:24 | HP.PCM_ITS ---
Problem List (1) Acute and chronic respiratory failure with hypercapnia Status: Acute (2) Chronic obstructive pulmonary disease with acute exacerbation Status: Acute (3) Hypotension arterial Status: Chronic (4) Nocturnal leg cramps Status: Acute (5) Pharyngitis Status: Chronic (6) Dyspnea on exertion Status: Chronic (7) TIO (obstructive sleep apnea) Status: Chronic Comment: Unable to tolerate Pap therapy, discontinuing use (8) History of ETOH abuse Status: Chronic (9) History of stroke Status: Resolved Comment: Right occipital lobe and left posterior superior parietal lobe per CT;later determined as hemorrhagic per MRI developed NSTEMI shortly after but no intervention d/t GI bleed (10) History of non-ST elevation myocardial infarction (NSTEMI) Status: Resolved (11) History of DVT of lower extremity Status: Chronic Comment: Rt lower extremity pinky vein (12) Acid-base disorder, mixed Status: Chronic (13) Insomnia Status: Chronic (14) Anxiety Status: Chronic (15) History of pneumonia Status: Resolved (16) Hyperlipidemia Status: Chronic Qualifiers: Hyperlipidemia type: pure hypercholesterolemia Qualified Code(s): E78.00 - Pure hypercholesterolemia, unspecified (17) Hypertension Status: Chronic Qualifiers: Hypertension type: essential hypertension Qualified Code(s): I10 - Essential (primary) hypertension (18) Daytime hypersomnia Status: Acute (19) H/O: section Status: Resolved (20) History of lumpectomy Status: Resolved (21) History of cholecystectomy Status: Resolved (22) Hemorrhagic cerebrovascular accident (CVA) Status: Resolved (23) Heart failure with reduced ejection fraction Status: Chronic (24) Metabolic encephalopathy Status: Resolved (25) Upper GI bleed Status: Resolved (26) Transaminitis Status: Acute (27) Elevated serum creatinine Status: Acute (28) COPD (chronic obstructive pulmonary disease) Status: Chronic Qualifiers: COPD type: unspecified COPD Qualified Code(s): J44.9 - Chronic obstructive pulmonary disease, unspecified (29) PRES (posterior reversible encephalopathy syndrome) Status: Resolved History of Present Illness Date of Admission: 10/15/18 Chief Complaint: Altered mental status The patient is a 62 year old F with multiple comorbidities including COPD, c hronic hypercapnic and hypoxic respiratory failure on 2 L of home oxygen was brought into ER for altered mental status. History was mainly from medical record and ER physician. As per the note, patient was weak and fatigue yesterday and wke up several times yesterday night. She also complained of headache and tinnitus. This morning patient had 2 times vomiting and patient had hard time waking up by her boyfriend. EMS found normal blood sugar. On arrival patient was very somnolent and history was unobtainable. Prior to that, patient was also admitted in ICU in 09/14/2018 and discharged on 09/18 after intubation in ICU for acute on chronic combined respiratory failure secondary to COPD exacerbation. Patient heart rate is on lower side in 50s. Blood pressure also was in 70s but now is getting better 105/82. Repeat ABG after 1 hour on BiPAP shows worsening of pH from 7.21-6.7. PCO2 was 109 on the first ABG. Initially she was put on BiPAP but later on patient intubated. UA is positive of WBC 5-10 cells, RBC 25-50 but nitrite negative. Past Medical History Past Medical History (Chronic Problems): Chronic Problems (Last Reviewed 08/18/18 @ 10:31 by Skylar Geller) Hypotension arterial (Chronic) Pharyngitis (Chronic) Dyspnea on exertion (Chronic) TIO (obstructive sleep apnea) (Chronic) Unable to tolerate Pap therapy, discontinuing use History of ETOH abuse (Chronic) History of DVT of lower extremity (Chronic 02/11/17) Rt lower extremity pinky vein Acid-base disorder, mixed (Chronic) Insomnia (Chronic) Anxiety (Chronic) Hyperlipidemia (Chronic) Hypertension (Chronic) Heart failure with reduced ejection fraction (Chronic) COPD (chronic obstructive pulmonary disease) (Chronic) Medical History: Medical History (Last Reviewed 08/18/18 @ 10:31 by Skylar Geller) History of ETOH abuse (Chronic) Z87.898 History of stroke (Resolved) Onset Date: 02/03/17 Z86.73 Right occipital lobe and left posterior superior parietal lobe per CT;later determined as hemorrhagic per MRI developed NSTEMI shortly after but no intervention d/t GI bleed History of non-ST elevation myocardial infarction (NSTEMI) (Resolved) Onset Date: 02/03/17 I25.2 History of DVT of lower extremity (Chronic) Onset Date: 02/11/17 Z86.718 Rt lower extremity pinky vein History of pneumonia (Resolved) Z87.01 Hyperlipidemia (Chronic) E78.5 Hypertension (Chronic) I10 Hemorrhagic cerebrovascular accident (CVA) (Resolved) I61.9 Heart failure with reduced ejection fraction (Chronic) I50.20 Metabolic encephalopathy (Resolved) G93.41 Upper GI bleed (Resolved) K92.2 Transaminitis (Acute) R74.0 Elevated serum creatinine (Acute) R79.89 COPD (chronic obstructive pulmonary disease) (Chronic) J44.9 PRES (posterior reversible encephalopathy syndrome) (Resolved) I67.83 Acute respiratory failure (Resolved) J96.00 Allergies tetanus and diphtheria toxoids [tetanus & diphtheria toxoids] Allergy (Verified 08/18/18 10:30) Hives Home Medications: Ambulatory Orders Medication Instructions Recorded Albuterol IH (ProAir) [Proair Hfa] 1 puff INHALATION Q4H PRN PRN #1 09/17/17 inhaler aspirin 81 mg tablet,delayed 81 mg PO DAILY #90 tab 03/02/18 release Carvedilol [Coreg (Beta Indy)] 12.5 mg PO BID 09/14/18 Folic Acid 1 mg PO DAILY 09/14/18 Multivitamin with Minerals 1 tab PO DAILY 09/14/18 [Multiple Vitamin] Pantoprazole Sodium 40 mg PO QAM 09/14/18 Spironolactone 12.5 mg PO DAILY 09/14/18 Acetaminophen [Tylenol Tablet] 650 mg PO Q6H PRN PRN tablet 09/16/18 Ipratropium/Albuterol Sulfate 3 ml INHALATION 4X/DAY #120 09/16/18 [Duoneb] ampul.neb zolpidem 10 mg tablet 5 mg PO QHS PRN #15 tab 09/19/18 Surgical History: Surgical History (Last Reviewed 08/18/18 @ 10:31 by Skylar Geller) H/O: section (Resolved) Z98.891 History of lumpectomy (Resolved) Z98.890 History of cholecystectomy (Resolved) Z90.49 Hx of appendectomy Z90.49 Surgical History: cholecystectomy, - - Lumpectomy Smoking Status: Former smoker - *Family History Maternal Family History: Family History (Last Reviewed 08/18/18 @ 10:31 by Skylar Geller) Sister Cancer Father Cancer Mother Cancer History Items: Cancer - Lung Paternal Family History: Family History (Last Reviewed 08/18/18 @ 10:31 by Skylar Geller) Sister Cancer Father Cancer Mother Cancer History Items: Cancer - Lung Sibling Family History: Family History (Last Reviewed 08/18/18 @ 10:31 by Skylar Geller) Sister Cancer Father Cancer Mother Cancer History Items: Cancer - lung Review of Systems Eyes: Reports: - - Pupils were sluggish reacting. No corneal reflex found. Unable to obtain accurate/complete ROS d/t: Patient is intubated VTE Information - Inpt Only VTE Present on Admission: No VTE Mechan Device Prophylaxis: SCD's, None VTE Pharm Prophylaxis ordered?: Yes - Physical Exam General: - - Unresponsive. Intubated on fentanyl drip. HEENT: Atraumatic, PERRLA, EOMI, Normocephalic Oral: Dry Mucosa Neck: Supple, No JVD, Negative Carotid Bruits Lungs: Clear to auscultation, Diminished - Air entry severely diminished. On vent support Cardiovascular: Regular Rhythm, Normal S1, Normal S2, No murmurs, Bradycardic Abdomen: Bowel Sounds Present, Soft, Non Tender, Non-Distended Extremities: No edema, Capillary Refill Less than 3 Seconds Skin: No rashes, No breakdown Musculoskeletal: No Tenderness to Palpation of Joints or Extremities, Arthritic Changes, Muscle Wasting Neurological: Cranial nerves II-XII grossly intact, - - Unable to perform neuro exam secondary to intubation and sedation. Babinski reflex could not be elicited Psych/Mental Status: Normal Affect, Appropriate Vital Signs Temp Pulse Resp BP Pulse Ox 97.2 F L 48 L 16 105/82 H 100 10/15/18 12:46 10/15/18 16:03 10/15/18 16:03 10/15/18 16:03 10/15/18 16:03 Oxygen Flow Rate (L/min) 4 Oxygen Delivery Method Mechanical Ventilator Weight: 147 lb 11.355 oz Body Mass Index (BMI) 25.3 Finger Stick Blood Glucose 101 Laboratory Tests Past 24 Hrs 10/15/18 10/15/18 10/15/18 13:00 13:00 13:00 WBC 6.4 RBC 4.05 L Hgb 11.7 L Hct 40.0 MCV 98.8 MCH 28.9 MCHC 29.3 L RDW 13.1 RDW Differential 47.8 H Plt Count 162 MPV 10.1 Immature Gran % (Auto) 0.200 Neut % (Auto) 63.7 Lymph % (Auto) 22.9 [place] % (Auto) 10.2 H Eos % (Auto) 2.7 Baso % (Auto) 0.3 Absolute Neuts (auto) 4.1 Absolute Lymphs (auto) 1.46 Total Counted Not Reportable Specimen Type Sample Site pH Bicarbonate Actual POC Total CO2 Base Excess O2 Saturation ABG pCO2 ABG pO2 Royal Test O2 Delivery Device Liter Flow Blood Gas Notified Whom Blood Gas Notified Time Sodium 143 Potassium 4.1 Chloride 102 Carbon Dioxide 42.0 H Anion Gap -1 L BUN 18 Creatinine 1.40 H Estim Creat Clear Calc 35.52 Est GFR (MDRD) Af Amer 49 L Est GFR (MDRD) Non-Af 40 L BUN/Creatinine Ratio 12.9 Glucose 102 Calcium 8.4 L Total Bilirubin 0.80 AST 296 H ALT 167 H Alkaline Phosphatase 153 H Ammonia Troponin I < 0.015 Total Protein 6.6 Albumin 3.5 Globulin 3.1 Albumin/Globulin Ratio 1.1 Urine Color Urine Clarity Urine pH Ur Specific [place] Urine Protein Urine Glucose (UA) Urine Ketones Urine Occult Blood Urine Nitrite Urine Bilirubin Urine Urobilinogen Ur Leukocyte Esterase Urine RBC Urine WBC Ur Squamous Epith Cells Ur Transition Epith Cell Urine Bacteria Hyaline Casts Fine Granular Casts Urine Mucus Ethyl Alcohol 3.0 10/15/18 10/15/18 10/15/18 13:30 13:38 15:45 WBC RBC Hgb Hct MCV MCH MCHC RDW RDW Differential Plt Count MPV Immature Gran % (Auto) Neut % (Auto) Lymph % (Auto) [place] % (Auto) Eos % (Auto) Baso % (Auto) Absolute Neuts (auto) Absolute Lymphs (auto) Total Counted Specimen Type ART Sample Site R Radial pH 7.21 L Bicarbonate Actual 43.2 H POC Total CO2 47 Base Excess 15 H O2 Saturation 91 L ABG pCO2 109.3 H* ABG pO2 81 Royal Test POS O2 Delivery Device Nasal Can Liter Flow 4.0 Blood Gas Notified Whom ED Blood Gas Notified Time 1334 Sodium Potassium Chloride Carbon Dioxide Anion Gap BUN Creatinine Estim Creat Clear Calc Est GFR (MDRD) Af Amer Est GFR (MDRD) Non-Af BUN/Creatinine Ratio Glucose Calcium Total Bilirubin AST ALT Alkaline Phosphatase Ammonia 60.0 H Troponin I Total Protein Albumin Globulin Albumin/Globulin Ratio Urine Color Yellow Urine Clarity Clear Urine pH 5.0 Ur Specific [place] 1.015 Urine Protein 15 H Urine Glucose (UA) Normal Urine Ketones Negative Urine Occult Blood 10 H Urine Nitrite Negative Urine Bilirubin 1 H Urine Urobilinogen 4 H Ur Leukocyte Esterase 25 H Urine RBC 0 SEEN Urine WBC 25-50 SEEN Ur Squamous Epith Cells 5-10 SEEN Ur Transition Epith Cell 0-5 SEEN Urine Bacteria 1+ Hyaline Casts 0-5 SEEN Fine Granular Casts 0-5 SEEN Urine Mucus 2+ Ethyl Alcohol POC Glucose 10/15/18 13:09 POC Glucose 101 Assessment/Plan All Active Problems (Last Reviewed 08/18/18 @ 10:31 by Skylar Geller) Acute and chronic respiratory failure with hypercapnia (Acute) Chronic obstructive pulmonary disease with acute exacerbation (Acute) Nocturnal leg cramps (Acute) History of stroke (Resolved 02/03/17) History of non-ST elevation myocardial infarction (NSTEMI) (Resolved 02/03/17) History of pneumonia (Resolved) Daytime hypersomnia (Acute) H/O: section (Resolved) History of lumpectomy (Resolved) History of cholecystectomy (Resolved) Hemorrhagic cerebrovascular accident (CVA) (Resolved) Metabolic encephalopathy (Resolved) Upper GI bleed (Resolved) Transaminitis (Acute) Elevated serum creatinine (Acute) PRES (posterior reversible encephalopathy syndrome) (Resolved) Acute respiratory failure (Resolved) The patient is a 62 year old F with multiple comorbidities including COPD, chronic hypercapnic and hypoxic respiratory failure on 2 L of home oxygen was brought into ER for altered mental status. History was mainly from medical record and ER physician. As per the note, patient was weak and fatigue yesterday and wke up several times yesterday night. She also complained of headache and tinnitus. This morning patient had 2 times vomiting and patient had hard time waking up by her boyfriend. EMS found normal blood sugar. On arrival patient was very somnolent and history was unobtainable. Prior to that, patient was also admitted in ICU in 09/14/2018 and discharged on 09/18 after intubation in ICU for acute on chronic combined respiratory failure secondary to COPD exacerbation. Patient heart rate is on lower side in 50s. Blood pressure also was in 70s but now is getting better 105/82. Repeat ABG after 1 hour on BiPAP shows worsening of pH from 7.21-6.7. PCO2 was 109 on the first ABG. Initially she was put on Bi PAP but later on patient intubated. UA is positive of WBC 5-10 cells, RBC 25-50 but nitrite negative. 1. Acute on chronic combined hypercarbic and hypoxic respiratory failure secondary to COPD exacerbation: Patient is being admitted in ICU. [employer] consult. Repeat ABG after an hour to adjust ventilator. 2. Acute on chronic respiratory acidosis secondary to COPD exacerbation: Respiratory panel ordered. Sputum culture and blood cultures have been ordered. Bronchodilator DuoNeb every 4 hourly. Solu-Medrol, chest physiotherapy. Mixed acid-base disorder. ABG shows severe respiratory acidosis with compensatory metabolic alkalosis. CO2 in BMP is 42. Her baseline is 36. 3. Chronic systolic heart failure: Last echo in September 2018 reported as EF 40- 45% with stage I diastolic dysfunction. Moderate global hypokinesis of left ventricle. 1-2+ MR, trivial TR, RVSP 26 mmHg Patient had echo in February 2017 reported as EF 45%. Mild global left ventricular systolic dysfunction. No regional wall motion abnormality. Normal RV size systolic function mild TR, RVSP 36 mmHg. Mild MR with diffuse mitral valve thickening. Chest x-ray shows no acute thoracic pathology. 4 History of non-STEMI, stroke, right soleal vein DVT, hypertension and dyslipidemia, press syndrome: Patient has multiple comorbidities. Multiple comorbidities complicates the present care and expect difficult and delay recovery During last admission; code status ws discussed. At that time, Patient wanted all possible efforts to resuscitate her including intubation, CPR and vasopressors, although Her Brother agreed for palliative care consult. DVT prophylaxis: On Lovenox 40 g subcu daily Clinical Impression(s) from Imaging Studies Brain CT 10/15/18 13:06 IMPRESSION: Stable old right occipital and left parietal infarcts with encephalomalacia. No acute intracranial abnormality. Chest X-Ray 10/15/18 13:06 IMPRESSION: No acute thoracic pathology. Chest X-Ray 10/15/18 15:47 IMPRESSION: Satisfactory position of the support lines and tubes. No acute thoracic pathology. Laboratory Results 10/15/18 13:00: WBC 6.4, RBC 4.05 L, Hgb 11.7 L, Hct 40.0, MCV 98.8, MCH 28.9, MCHC 29.3 L, RDW 13.1, RDW Differential 47.8 H, Plt Count 162, MPV 10.1, Immature Gran % (Auto) 0.200, Neut % (Auto) 63.7, Lymph % (Auto) 22.9, [place] % (Auto) 10.2 H, Eos % (Auto) 2.7, Baso % (Auto) 0.3, Absolute Neuts (auto) 4.1, Absolute Lymphs (auto) 1.46, Total Counted Not Reportable 10/15/18 13:00: Sodium 143, Potassium 4.1, Chloride 102, Carbon Dioxide 42.0 H, Anion Gap -1 L, BUN 18, Creatinine 1.40 H, Estim Creat Clear Calc 35.52, Est GFR (MDRD) Af Amer 49 L, Est GFR (MDRD) Non-Af 40 L, BUN/Creatinine Ratio 12.9, Glucose 102, Calcium 8.4 L, Total Bilirubin 0.80, AST 296 H, ALT 167 H, Alkaline Phosphatase 153 H, Troponin I < 0.015, Total Protein 6.6, Albumin 3.5, Globulin 3.1, Albumin/Globulin Ratio 1.1 10/15/18 13:00: Ethyl Alcohol 3.0 10/15/18 13:09: POC Glucose 101 10/15/18 13:30: Ammonia 60.0 H 10/15/18 13:38: Specimen Type ART, Sample Site R Radial, pH 7.21 L, Bicarbonate Actual 43.2 H, POC Total CO2 47, Base Excess 15 H, O2 Saturation 91 L, ABG pCO2 109.3 H*, ABG pO2 81, Royal Test POS, O2 Delivery Device Nasal Can, Liter Flow 4.0, Blood Gas Notified Whom ED MD, Blood Gas Notified Time 133310/15/18 15:32: Specimen Type ART, Sample Site L Radial, pH 6.70 L*, Bicarbonate Actual 1.7 L, POC Total CO2 < 5, Base Excess < -30 L, O2 Saturation 92 L, ABG pCO2 13.7 L*, ABG pO2 132 H, Royal Test POS, O2 Delivery Device Room Air, Blood Gas Notified Whom ED MD, Blood Gas Notified Time 15310/15/18 15:32: pH Pending, Bicarbonate Actual Pending, POC Total CO2 Pending, Base Excess Pending, O2 Saturation Pending, ABG pCO2 Pending, ABG pO2 Pending 10/15/18 15:45: Urine Color Yellow, Urine Clarity Clear, Urine pH 5.0, Ur Specific [place] 1.015, Urine Protein 15 H, Urine Glucose (UA) Normal, Urine Ketones Negative, Urine Occult Blood 10 H, Urine Nitrite Negative, Urine Bilirubin 1 H, Urine Urobilinogen 4 H, Ur Leukocyte Esterase 25 H, Urine RBC 0 SEEN, Urine WBC 25-50 SEEN, Ur Squamous Epith Cells 5-10 SEEN, Ur Transition Epith Cell 0-5 SEEN, Urine Bacteria 1+, Hyaline Casts 0-5 SEEN, Fine Granular Casts 0-5 SEEN, Urine Mucus 2+ Code Visit Inpatient E&M: 92366 Init Hosp L3 Procedures: 50695 Critial Care 1st Hr
--- NOTE | 2018-10-15 16:33 | ED.RN ---
REPORT GIVEN TO LEYDA KILPATRICK IN ICU. WAITING FOR ROOM TO BE CLEAN.
[2018-10-15] MEDS: Midazolam 2 MG/2 ML Syringe IV (16:34)
[2018-10-15 17:43] LABS: CPK Total, Creatine Kinase 39 U/L (26-192); Triglycerides 96 mg/dL
[2018-10-15 17:50] LABS: Base Excess 5 mmol/L (-2 to +2); Bicarbonate 29.9 mmol/L (22-26); Blood Gas Specimen Type ART; FI02 35; Mode A-C; O2 Delivery Device Vent; PEEP 5; PO2 126 mmHG (75-100); RR 16; SITE R Radial; SO2 99 % (95-99); Time Given 1745; Total Carbon Dioxide 31 mmol/L; Vt 450; pCO2 49.1 mmHg (35-45); pH 7.39 (7.35-7.45)
[2018-10-15] MEDS: Enoxaparin 40 MG/0.4 ML Syringe SC (17:52)
[2018-10-15 18:33] LABS: Allen Test POS; Blood Gas Specimen Type VEN; SITE L RADIAL
[2018-10-15 18:34] LABS: EPAP 8; FI02 35; IPAP 18; O2 Delivery Device Bi Pap; Time Given 1508
[2018-10-15 18:36] LABS: PO2 21 mmHG (75-100); pCO2 > 130.0 mmHg (35-45)
--- NOTE | 2018-10-15 19:30 | CPS ---
per Dr. Flannery keep peak flow on vent at 80 to have a longer expiration for pt, also keep plateau pressures below 30
[2018-10-15] MEDS: Chlorhexidine 15 ML PO (22:22)
[2018-10-16] VITALS (38 sets, daily range): BP systolic 104–149; BP diastolic 7–99; PULSE 49–115; RESP 11–82; TEMP 37.3–38.2; O2SAT 92–100
[2018-10-16] MEDS: 0.9% Normal Saline 1,000 ML 150 ML IV (01:36)
[2018-10-16] MEDS: fentaNYL drip 100 ML 5 MCG CONT INF ×2 (01:37→15:36)
[2018-10-16] MEDS: Ipratropium/Albuterol Sulfate 3 ML AMPUL.NEB INHALATION ×6 (03:18→22:25)
[2018-10-16] MEDS: CHLORHEXIDINE GLUC 2% CLOTH 1 EACH TOWELETTE TOPICAL (05:12)
[2018-10-16 05:54] LABS: AST(SGOT) 130 U/L (15-37); Alanine Aminotransfer ALT/SGPT 129 U/L (13-56); Albumin, Serum 3.1 g/dL (3.2-5.0); Alkaline Phosphatase 147 U/L (45-117); Anion Gap 8 (5-15); BUN 23 mg/dL (7-18); BUN/Creat Ratio 20.7 RATIO (10-20); Calcium,Total 8.2 mg/dL (8.5-10.1); Chloride 110 mmol/L (98-107); Creatinine, Serum 1.11 mg/dL (0.55-1.02); EST Glomerular Filtration Rate 53 mL/min (>60); Est Glom Filt Rate - Afr Amer 64 mL/min (>60); Glucose 147 mg/dL (74-106); Potassium 3.4 mmol/L (3.5-5.1); Protein, Total 6.1 g/dL (6.4-8.2); Sodium Level 146 mmol/L (136-145)
[2018-10-16 06:11] LABS: Absolute Lymphocyte Count 0.72 X10^3/ul (0.83-4.51); Absolute Neutrophil Count 6.8 X10^3/uL (2.0-7.7); Hematocrit 34.7 % (37-47); Hemoglobin 10.8 g/dl (12.0-15.0); Lymphocyte # 0.72 X10^3/ul (4.0); Lymphocyte % 9.4 % (19-41); Mean Corp Hgb Conc 31.1 g/gl (32-36); Mean Corpuscular Hgb 28.6 pg (27.0-32.0); Mean Platelet Vol. 10.7 fl (6.2-12.0); Monocyte# 0.14 X10^3/uL; Monocyte% 1.8 % (0-10); Neutrophil % 88.7 % (47-70); Platelet Count 140 K/mm3 (150-450); RBC Distribution Width SD 43.9 fl (35.1-43.9); Red Blood Count 3.77 M/mm3 (4.2-5.4); White Blood Count 7.7 K/mm3 (4.4-11.0)
[2018-10-16 06:20] LABS: POSITIVE COUNT NO; POSITIVE DIFFERENTIAL NO; POSITIVE MORPHOLOGY NO
--- NOTE | 2018-10-16 06:25 | CON.PCM_ITS ---
Reason for Consult Date of Consultation: 10/16/18 Reason for Consultation: Acute on chronic respiratory failure History of Present Illness: The patient is a 62-year-old female, with a history as outlined below, who presented to the emergency department on October 15 with altered mental status. The patient had reportedly developed nausea and vomiting and then was unarousable on the morning of October 15. The patient was recently admitted to the hospital September 14 with acute on chronic combined respiratory failure. I did see the patient personally during her previous hospitalization and made recommendations to pursue hospice care services. While the patient was initially agreeable, upon evaluation by hospice, she reported that she was not yet ready to make a decision to institute their services and wanted to think about it further. On presentation to the emergency department, the patient was noted to be afebrile. She was hypotensive and bradycardic. She was initially documented to be saturating 70% on room air. Laboratory evaluation revealed no evidence of a leukocytosis. Chemistry profile was notable for a sodium of 143, bicarbonate of 42, creatinine 1.40. AST and ALT were increased to 296 and 167, respectively. Alkaline phosphatase was increased to 153. Ammonia was increased to 60. Troponin was negative. Serum alcohol level is negative. The patient was noted to be significantly hypercarbic. She was placed on BiPAP and given an aerosol treatment and IV Solu-Medrol. However, the patient's respiratory acidosis did not correct with attempts at noninvasive positive pressure ventilation. Therefore, the patient was intubated. CT head revealed stable appearing old infarcts in the right occipital left parietal lobes. Plain film chest x-ray revealed no acute cardiopulmonary process. The patient received supplemental IV fluid hydration along with IV antibiotics. She was subsequently transferred to the medical intensive care unit for ongoing management. The patient is known to me from the pulmonary medicine clinic. She has a known history of end-stage COPD and chronic hypoxemic respiratory failure. In addition, she has known obstructive sleep apnea, based upon a diagnostic polysomnogram completed in October 2017. The patient was subsequently prescribed BiPAP therapy with a pressure support of 15/11 centimeters of water with a 2 L/min supplemental oxygen bleed in. She has a previous smoking history that included 1.5 packs per day ?20 years. The patient quit smoking completely 15 years ago. 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 A 6 minute walk test also completed in December 2017 revealed the need for 2 L/min of supplemental oxygen, both at rest and with exertion. The patient's last pulmonary visit occurred in May 2018. At that time, the patient was noted to be unable to tolerate the prescribed noninvasive positive pressure ventilation due to PTSD. Therefore, she has not been on any form of ventilatory support since that time. She has a great deal of underlying anxiety and reported PTSD, which precluded her use of BiPAP. Despite being on a maximal inhaler regimen, she continues to utilize her rescue inhaler quite frequently. Past Medical History Past Medical History (Chronic Problems): Chronic Problems (Last Reviewed 08/18/18 @ 10:31 by Skylar Geller) Hypotension arterial (Chronic) Pharyngitis (Chronic) Dyspnea on exertion (Chronic) TIO (obstructive sleep apnea) (Chronic) Unable to tolerate Pap therapy, discontinuing use History of ETOH abuse (Chronic) History of DVT of lower extremity (Chronic 02/11/17) Rt lower extremity pinky vein Acid-base disorder, mixed (Chronic) Insomnia (Chronic) Anxiety (Chronic) Hyperlipidemia (Chronic) Hypertension (Chronic) Heart failure with reduced ejection fraction (Chronic) COPD (chronic obstructive pulmonary disease) (Chronic) Medical History: Medical History (Last Reviewed 08/18/18 @ 10:31 by Skylar Geller) History of ETOH abuse (Chronic) Z87.898 History of stroke (Resolved) Onset Date: 02/03/17 Z86.73 Right occipital lobe and left posterior superior parietal lobe per CT;later determined as hemorrhagic per MRI developed NSTEMI shortly after but no intervention d/t GI bleed History of non-ST elevation myocardial infarction (NSTEMI) (Resolved) Onset Date: 02/03/17 I25.2 History of DVT of lower extremity (Chronic) Onset Date: 02/11/17 Z86.718 Rt lower extremity pinky vein History of pneumonia (Resolved) Z87.01 Hyperlipidemia (Chronic) E78.5 Hypertension (Chronic) I10 Hemorrhagic cerebrovascular accident (CVA) (Resolved) I61.9 Heart failure with reduced ejection fraction (Chronic) I50.20 Metabolic encephalopathy (Resolved) G93.41 Upper GI bleed (Resolved) K92.2 Transaminitis (Acute) R74.0 Elevated serum creatinine (Acute) R79.89 COPD (chronic obstructive pulmonary disease) (Chronic) J44.9 PRES (posterior reversible encephalopathy syndrome) (Resolved) I67.83 Acute respiratory failure (Resolved) J96.00 Allergies tetanus and diphtheria toxoids [tetanus & diphtheria toxoids] Allergy (Verified 08/18/18 10:30) Hives Home Medications: Ambulatory Orders Medication Instructions Recorded Albuterol IH (ProAir) [Proair Hfa] 1 puff INHALATION Q4H PRN PRN #1 09/17/17 inhaler aspirin 81 mg tablet,delayed 81 mg PO DAILY #90 tab 03/02/18 release Carvedilol [Coreg (Beta Indy)] 12.5 mg PO BID 09/14/18 Folic Acid 1 mg PO DAILY 09/14/18 Multivitamin with Minerals 1 tab PO DAILY 09/14/18 [Multiple Vitamin] Pantoprazole Sodium 40 mg PO QAM 09/14/18 Spironolactone 12.5 mg PO DAILY 09/14/18 Acetaminophen [Tylenol Tablet] 650 mg PO Q6H PRN PRN tablet 09/16/18 Ipratropium/Albuterol Sulfate 3 ml INHALATION 4X/DAY #120 09/16/18 [Duoneb] ampul.neb zolpidem 10 mg tablet 5 mg PO QHS PRN #15 tab 09/19/18 Surgical History: Surgical History (Last Reviewed 08/18/18 @ 10:31 by Skylar Geller) H/O: section (Resolved) Z98.891 History of lumpectomy (Resolved) Z98.890 History of cholecystectomy (Resolved) Z90.49 Hx of appendectomy Z90.49 Surgical History: cholecystectomy, - - Lumpectomy Smoking Status: Former smoker - *Family History Maternal Family History: Family History (Last Reviewed 08/18/18 @ 10:31 by Skylar Geller) Sister Cancer Father Cancer Mother Cancer History Items: Cancer - Lung Paternal Family History: Family History (Last Reviewed 08/18/18 @ 10:31 by Skylar Geller) Sister Cancer Father Cancer Mother Cancer History Items: Cancer - Lung Sibling Family History: Family History (Last Reviewed 08/18/18 @ 10:31 by Skylar Geller) Sister Cancer Father Cancer Mother Cancer History Items: Cancer - lung Review of Systems Unable to obtain accurate/complete ROS d/t: Due to current intubation and mechanical ventilation status. Objective: The patient's most recent lab work, culture data and imaging studies have all been personally reviewed. Respiratory viral panel was negative. Blood and urine cultures are pending. - Physical Exam General: - - Intubated, sedated and mechanically ventilated. No ventilator dyssynchrony. HEENT: Atraumatic, PERRLA, Normocephalic Oral: No Gingival or Mucosal Lesions/ Ulcerations, - - Endotracheal and OG tubes in place Neck: Supple, No Nodes, Trachea Midline Lungs: No rhonchi, No wheeze, No rales, Diminished Cardiovascular: Regular rate, Regular Rhythm, Normal S1, Normal S2, No murmurs Abdomen: Bowel Sounds Present, Soft, Non Tender, Non-Distended Extremities: No clubbing, No cyanosis, No edema Skin: No breakdown Musculoskeletal: No Tenderness to Palpation of Joints or Extremities Lymphatic: No Cervical, Supraclavicular, or Inguinal Adenopathy Neurological: - - No focal neurological deficits. Moves all extremities spontaneously. Able to follow simple commands. Psych/Mental Status: Anxious Vital Signs Temp Pulse Resp BP Pulse Ox 100.5 F H 86 19 H 142/81 H 99 10/16/18 06:00 10/16/18 06:00 10/16/18 06:00 10/16/18 06:00 10/16/18 06:00 Oxygen Flow Rate (L/min) 4 Oxygen Delivery Method Mechanical Ventilator Weight: 146 lb 9.718 oz Body Mass Index (BMI) 25.7 Finger Stick Blood Glucose 101 Intake and Output for Last 24 Hours 10/14/18 10/15/18 10/16/18 23:59 23:59 23:59 Intake Total 3000 / 3000 2625 / 2625 Output Total 350 / 350 Balance 3000 / 3000 2275 / 2275 Microbiology Past 72 Hours 10/15/18 18:00 Respiratory Panel (PCR) - Final Mucosa - Nasopharyngeal Laboratory Tests Past 24 Hrs 10/15/18 10/15/18 10/15/18 13:00 13:00 13:00 WBC 6.4 RBC 4.05 L Hgb 11.7 L Hct 40.0 MCV 98.8 MCH 28.9 MCHC 29.3 L RDW 13.1 RDW Differential 47.8 H Plt Count 162 MPV 10.1 Immature Gran % (Auto) 0.200 Neut % (Auto) 63.7 Lymph % (Auto) 22.9 [place] % (Auto) 10.2 H Eos % (Auto) 2.7 Baso % (Auto) 0.3 Absolute Neuts (auto) 4.1 Absolute Lymphs (auto) 1.46 Total Counted Not Reportable Specimen Type Sample Site pH Bicarbonate Actual POC Total CO2 Base Excess O2 Saturation O2 % ABG pCO2 ABG pO2 Royal Test Respiration Rate O2 Delivery Device Liter Flow Minute Volume Vent Mode Tidal Volume POC PEEP POC Pressure Suppt Pressure High Pressure Low Time High Time Low EPAP IPAP Blood Gas Notified Whom Blood Gas Notified Time Sodium 143 Potassium 4.1 Chloride 102 Carbon Dioxide 42.0 H Anion Gap -1 L BUN 18 Creatinine 1.40 H Estim Creat Clear Calc 35.52 Est GFR (MDRD) Af Amer 49 L Est GFR (MDRD) Non-Af 40 L BUN/Creatinine Ratio 12.9 Glucose 102 Calcium 8.4 L Total Bilirubin 0.80 AST 296 H ALT 167 H Alkaline Phosphatase 153 H Ammonia Total Creatine Kinase Troponin I < 0.015 Total Protein 6.6 Albumin 3.5 Globulin 3.1 Albumin/Globulin Ratio 1.1 Triglycerides Urine Color Urine Clarity Urine pH Ur Specific [place] Urine Protein Urine Glucose (UA) Urine Ketones Urine Occult Blood Urine Nitrite Urine Bilirubin Urine Urobilinogen Ur Leukocyte Esterase Urine RBC Urine WBC Ur Squamous Epith Cells Ur Transition Epith Cell Urine Bacteria Hyaline Casts Fine Granular Casts Urine Mucus Ethyl Alcohol 3.0 10/15/18 10/15/18 10/15/18 13:30 13:38 15:08 WBC RBC Hgb Hct MCV MCH MCHC RDW RDW Differential Plt Count MPV Immature Gran % (Auto) Neut % (Auto) Lymph % (Auto) [place] % (Auto) Eos % (Auto) Baso % (Auto) Absolute Neuts (auto) Absolute Lymphs (auto) Total Counted Specimen Type ART GÉNESIS Sample Site R Radial L RADIAL pH 7.21 L 7.10 L* Bicarbonate Actual 43.2 H Not Reportable POC Total CO2 47 Not Reportable Base Excess 15 H Not Reportable O2 Saturation 91 L Not Reportable O2 % 35 ABG pCO2 109.3 H* > 130.0 H* ABG pO2 81 21 L* Royal Test POS POS Respiration Rate O2 Delivery Device Nasal Can Bi Pap Liter Flow 4.0 Minute Volume Vent Mode Tidal Volume POC PEEP POC Pressure Suppt Pressure High Pressure Low Time High Time Low EPAP 8 IPAP 18 Blood Gas Notified Whom ED MD ED Blood Gas Notified Time 1334 1508 Sodium Potassium Chloride Carbon Dioxide Anion Gap BUN Creatinine Estim Creat Clear Calc Est GFR (MDRD) Af Amer Est GFR (MDRD) Non-Af BUN/Creatinine Ratio Glucose Calcium Total Bilirubin AST ALT Alkaline Phosphatase Ammonia 60.0 H Total Creatine Kinase Troponin I Total Protein Albumin Globulin Albumin/Globulin Ratio Triglycerides Urine Color Urine Clarity Urine pH Ur Specific [place] Urine Protein Urine Glucose (UA) Urine Ketones Urine Occult Blood Urine Nitrite Urine Bilirubin Urine Urobilinogen Ur Leukocyte Esterase Urine RBC Urine WBC Ur Squamous Epith Cells Ur Transition Epith Cell Urine Bacteria Hyaline Casts Fine Granular Casts Urine Mucus Ethyl Alcohol 10/15/18 10/15/18 10/15/18 15:32 15:32 15:45 WBC RBC Hgb Hct MCV MCH MCHC RDW RDW Differential Plt Count MPV Immature Gran % (Auto) Neut % (Auto) Lymph % (Auto) [place] % (Auto) Eos % (Auto) Baso % (Auto) Absolute Neuts (auto) Absolute Lymphs (auto) Total Counted Specimen Type Cancelled Cancelled Sample Site Cancelled Cancelled pH Cancelled Cancelled Bicarbonate Actual Cancelled Cancelled POC Total CO2 Cancelled Cancelled Base Excess Cancelled Cancelled O2 Saturation Cancelled Cancelled O2 % Cancelled Cancelled ABG pCO2 Cancelled Cancelled ABG pO2 Cancelled Cancelled Royal Test Cancelled Cancelled Respiration Rate Cancelled Cancelled O2 Delivery Device Cancelled Cancelled Liter Flow Cancelled Cancelled Minute Volume Cancelled Cancelled Vent Mode Cancelled Cancelled Tidal Volume Cancelled Cancelled POC PEEP Cancelled Cancelled POC Pressure Suppt Cancelled Cancelled Pressure High Cancelled Cancelled Pressure Low Cancelled Cancelled Time High Cancelled Cancelled Time Low Cancelled Cancelled EPAP Cancelled Cancelled IPAP Cancelled Cancelled Blood Gas Notified Whom Cancelled Cancelled Blood Gas Notified Time Cancelled Cancelled Sodium Potassium Chloride Carbon Dioxide Anion Gap BUN Creatinine Estim Creat Clear Calc Est GFR (MDRD) Af Amer Est GFR (MDRD) Non-Af BUN/Creatinine Ratio Glucose Calcium Total Bilirubin AST ALT Alkaline Phosphatase Ammonia Total Creatine Kinase Troponin I Total Protein Albumin Globulin Albumin/Globulin Ratio Triglycerides Urine Color Yellow Urine Clarity Clear Urine pH 5.0 Ur Specific [place] 1.015 Urine Protein 15 H Urine Glucose (UA) Normal Urine Ketones Negative Urine Occult Blood 10 H Urine Nitrite Negative Urine Bilirubin 1 H Urine Urobilinogen 4 H Ur Leukocyte Esterase 25 H Urine RBC 0 SEEN Urine WBC 25-50 SEEN Ur Squamous Epith Cells 5-10 SEEN Ur Transition Epith Cell 0-5 SEEN Urine Bacteria 1+ Hyaline Casts 0-5 SEEN Fine Granular Casts 0-5 SEEN Urine Mucus 2+ Ethyl Alcohol 10/15/18 10/15/18 10/16/18 17:15 17:46 05:25 WBC 7.7 RBC 3.77 L Hgb 10.8 L Hct 34.7 L MCV 92.0 MCH 28.6 MCHC 31.1 L RDW 13.0 RDW Differential 43.9 Plt Count 140 L MPV 10.7 Immature Gran % (Auto) 0.100 Neut % (Auto) 88.7 H Lymph % (Auto) 9.[address] [place] % (Auto) 1.8 Eos % (Auto) 0.0 Baso % (Auto) 0.0 Absolute Neuts (auto) 6.8 Absolute Lymphs (auto) 0.72 L Total Counted Not Reportable Specimen Type ART Sample Site R Radial pH 7.39 Bicarbonate Actual 29.9 H POC Total CO2 31 Base Excess 5 H O2 Saturation 99 O2 % 35 ABG pCO2 49.1 H ABG pO2 126 H Royal Test NA Respiration Rate 16 O2 Delivery Device Vent Liter Flow Minute Volume Vent Mode A-C Tidal Volume 450 POC PEEP 5 POC Pressure Suppt Pressure High Pressure Low Time High Time Low EPAP IPAP Blood Gas Notified Whom ICU Blood Gas Notified Time 1745 Sodium Potassium Chloride Carbon Dioxide Anion Gap BUN Creatinine Estim Creat Clear Calc Est GFR (MDRD) Af Amer Est GFR (MDRD) Non-Af BUN/Creatinine Ratio Glucose Calcium Total Bilirubin AST ALT Alkaline Phosphatase Ammonia Total Creatine Kinase 39 Troponin I Total Protein Albumin Globulin Albumin/Globulin Ratio Triglycerides 96 Urine Color Urine Clarity Urine pH Ur Specific [place] Urine Protein Urine Glucose (UA) Urine Ketones Urine Occult Blood Urine Nitrite Urine Bilirubin Urine Urobilinogen Ur Leukocyte Esterase Urine RBC Urine WBC Ur Squamous Epith Cells Ur Transition Epith Cell Urine Bacteria Hyaline Casts Fine Granular Casts Urine Mucus Ethyl Alcohol 10/16/18 05:25 WBC RBC Hgb Hct MCV MCH MCHC RDW RDW Differential Plt Count MPV Immature Gran % (Auto) Neut % (Auto) Lymph % (Auto) [place] % (Auto) Eos % (Auto) Baso % (Auto) Absolute Neuts (auto) Absolute Lymphs (auto) Total Counted Specimen Type Sample Site pH Bicarbonate Actual POC Total CO2 Base Excess O2 Saturation O2 % ABG pCO2 ABG pO2 Royal Test Respiration Rate O2 Delivery Device Liter Flow Minute Volume Vent Mode Tidal Volume POC PEEP POC Pressure Suppt Pressure High Pressure Low Time High Time Low EPAP IPAP Blood Gas Notified Whom Blood Gas Notified Time Sodium 146 H Potassium 3.4 L Chloride 110 H Carbon Dioxide 28.0 Anion Gap 8 BUN 23 H Creatinine 1.11 H Estim Creat Clear Calc 44.80 Est GFR (MDRD) Af Amer 64 Est GFR (MDRD) Non-Af 53 L BUN/Creatinine Ratio 20.7 H Glucose 147 H Calcium 8.2 L Total Bilirubin 0.90 AST 130 H ALT 129 H Alkaline Phosphatase 147 H Ammonia Total Creatine Kinase Troponin I Total Protein 6.1 L Albumin 3.1 L Globulin 3.0 Albumin/Globulin Ratio 1.0 Triglycerides Urine Color Urine Clarity Urine pH Ur Specific [place] Urine Protein Urine Glucose (UA) Urine Ketones Urine Occult Blood Urine Nitrite Urine Bilirubin Urine Urobilinogen Ur Leukocyte Esterase Urine RBC Urine WBC Ur Squamous Epith Cells Ur Transition Epith Cell Urine Bacteria Hyaline Casts Fine Granular Casts Urine Mucus Ethyl Alcohol POC Glucose 10/15/18 13:09 POC Glucose 101 Clinical Impression(s) from Imaging Studies Brain CT 10/15/18 13:06 IMPRESSION: Stable old right occipital and left parietal infarcts with encephalomalacia. No acute intracranial abnormality. Electronically Signed: Jhony Arce, at 14:43 EDT Tel , Service support , Chest X-Ray 10/15/18 13:06 IMPRESSION: No acute thoracic pathology. Electronically Signed: Jhony Arce, at 14:10 EDT Tel , Service support , Chest X-Ray 10/15/18 15:47 IMPRESSION: Satisfactory position of the support lines and tubes. No acute thoracic pathology. Electronically Signed: Jhony Arce, at 16:15 EDT Tel , Service support , Assessment/Plan RECOMMENDATIONS: 1. Continue empiric antimicrobials, pending infectious workup. If infectious workup is negative, antibiotics can be discontinued next 24-48 hours. 2. Continue scheduled bronchodilators and steroids. 3. Start Precedex today to assist with the patient's baseline anxiety. 4. Electrolyte repletion as ordered. 5. Maintain oxygen saturations 88-92%. 6. Check lipase and liver ultrasound. 7. Tube feeds can be initiated today. 8. Continue appropriate ICU prophylaxis. 9. Recommend goals of care/CODE STATUS discussion prior to consideration for extubation. IMPRESSIONS: 1. Acute on chronic combined respiratory failure Although no focal infiltrates were identified on plain film chest x-ray, will continue empiric antibiotics, pending infectious workup. The patient has a known history of end-stage COPD along with a 2 L/min baseline supplemental oxygen requirement. She is a chronic CO2 retainer. The patient did complete a sleep study previously and was started on BiPAP therapy in hopes that this would josé viate a component of her chronic CO2 retention. However, the patient was subsequently intolerant of the aforementioned therapy due to anxiety and self- reported PTSD. Therefore, BiPAP therapy was discontinued completely. She is currently on maximal therapy from an inhaler perspective and continues to utilize her rescue inhaler on a daily basis. I do suspect that given the severity of the patient's underlying obstructive lung disease she needs to be on some form of ventilatory support on an outpatient basis. However, she has been resistant to this idea. CODE STATUS was discussed with the patient during her previous hospitalization and she was agreeable to DNR CCA at that time. Due to her insistence to not utilize BiPAP therapy, I advocated for palliative care involvement. Although the patient was also initially agreeable, she later reported that she wished to think about it further. For now, we will continue scheduled bronchodilators as ordered. Precedex will be initiated today to help alleviate some of the patient's anxiety. Tube feeds can be initiated from my perspective. Continue steroids as well. Recommend goals of care/CODE STATUS discussion prior to consideration for extubation. 2. Acute kidney injury Likely prerenal in etiology. We will continue to monitor urine output. There is no indication for renal replacement therapy at this time. 3. Hypokalemia Electrolyte repletion as ordered. Recheck levels in the morning. 4. Elevated transaminases Prior hepatitis screen was negative in 2017. We will plan to check lipase level along with liver ultrasound. 5. Known obstructive sleep apnea The patient is noncompliant with the use of noninvasive positive pressure ventilation on an outpatient basis. TIME: 40 minutes of critical care time, independent of procedures, was spent addressing the patient's acute on chronic combined respiratory failure, acute kidney injury, hypokalemia, elevated transaminases, obstructive sleep apnea, review of all data and collaboration with the care team. ([id number]) Code Visit 9xxxx: [id number] Critical care first hour
--- NOTE | 2018-10-16 07:09 | US_ITS ---
STUDY: ABDOMINAL ULTRASOUND - RIGHT UPPER QUADRANT REASON FOR VISIT: Female, 62 years old. Elevated LFTs. TECHNIQUE: Ultrasound evaluation of the right upper quadrant was performed with real-time and static wood-scale imaging. TECHNICAL QUALITY: Adequate. COMPARISON: 02/03/2017. FINDINGS: Liver: The liver measures 14.3 cm. There is normal echogenicity of the liver. The bile ducts are within normal limits. There is hepatic color flow. The direction of portal flow is hepatopetal. There is no demonstrated mass lesion. Gallbladder: The gallbladder is visualized. Correlation with surgical history is recommended. Common Bile Duct (C.B.D.): The common bile duct measures 5 mm. Pancreas: Normal size of the head, body and tail of the pancreas. There is normal echogenicity of the pancreas. There is no demonstrated pancreatic mass or cyst. Right Kidney: Normal size of the right kidney. The right kidney measures 9.8 cm. There is cortical thinning in the right kidney, measuring 8 mm. There is no demonstrated renal mass or cyst. There is no right hydronephrosis. US/Liver IMPRESSION: Normal liver. Gallbladder not visualized. Correlation with surgical history is recommended. Cortical thinning in the right kidney. No hydronephrosis. Electronically Signed: Jhony Arce, at 9:32 EDT Tel , Service support ,
[2018-10-16 07:32] LABS: Lipase 110 U/L (73-393)
[2018-10-16] MEDS: Potassium Chloride 20mEq/100mL 20 MEQ/100 ML IV.SOLN. 100 MEQ IV ×2 (07:57→08:53)
[2018-10-16] MEDS: Enoxaparin 40 MG/0.4 ML Syringe SC (10:50)
[2018-10-16] MEDS: Carvedilol 12.5 MG Tablet NG ×2 (10:50→21:21)
[2018-10-16] MEDS: Aspirin E.C. 81 MG Tablet PO (10:50)
[2018-10-16] MEDS: Chlorhexidine 15 ML PO ×2 (10:50→21:20)
[2018-10-16] MEDS: Famotidine 20 MG Tablet GT (10:51)
--- NOTE | 2018-10-16 11:23 | PN_ITS ---
Subjective: Patient was seen and examined today in the ICU, I talked briefly with pulmonary medicine about her care. Patient is currently on the ventilator and is sedated, she was admitted yesterday with combined respiratory failure. Patient has a long history of COPD and obstructive sleep apnea and is noncompliant with treatment for obstructive sleep apnea. Patient's ammonia level was elevated yesterday on admission-etiology for this is unknown at this time, I will repeat the patient's ammonia level today - Physical Exam General: No apparent distress, Well developed, - - Patient is sedated on the ventilator HEENT: Atraumatic, PERRLA, EOMI, Normocephalic Oral: Moist Mucosa Neck: Supple, No JVD, Trachea Midline, Thyroid Normal Size and Texture Lungs: Clear to auscultation, Normal air movement, No rhonchi, No wheeze, No rales Cardiovascular: Regular rate, Regular Rhythm, Normal S1, Normal S2, No murmurs, No Ectopic Activity, PMI Normal, No rub noted, No Gallop Abdomen: Bowel Sounds Present, Soft, Non Tender, Non-Distended, No hernias noted Extremities: No clubbing, No cyanosis, No edema, Capillary Refill Less than 3 Seconds Skin: No rashes, No breakdown Neurological: - - Patient is sedated and on the ventilator Psych/Mental Status: - - Patient is sedated on the ventilator Vital Signs Temp Pulse Resp BP Pulse Ox 100.1 F H 79 19 H 128/7 H 98 10/16/18 10:00 10/16/18 10:02 10/16/18 10:02 10/16/18 10:00 10/16/18 10:02 Oxygen Flow Rate (L/min) 4 Oxygen Delivery Method Mechanical Ventilator Weight: 66.5 kg Body Mass Index (BMI) 25.7 Finger Stick Blood Glucose 101 Intake and Output for Last 24 Hours 10/14/18 10/15/18 10/16/18 23:59 23:59 23:59 Intake Total 3000 / 3000 2625 / 2625 Output Total 350 / 350 Balance 3000 / 3000 2275 / 2275 Microbiology Past 72 Hours 10/15/18 18:00 Respiratory Panel (PCR) - Final Mucosa - Nasopharyngeal Laboratory Tests Past 24 Hrs 10/15/18 10/15/18 10/15/18 13:00 13:00 13:00 WBC 6.4 RBC 4.05 L Hgb 11.7 L Hct 40.0 MCV 98.8 MCH 28.9 MCHC 29.3 L RDW 13.1 RDW Differential 47.8 H Plt Count 162 MPV 10.1 Immature Gran % (Auto) 0.200 Neut % (Auto) 63.7 Lymph % (Auto) 22.9 [place] % (Auto) 10.2 H Eos % (Auto) 2.7 Baso % (Auto) 0.3 Absolute Neuts (auto) 4.1 Absolute Lymphs (auto) 1.46 Total Counted Not Reportable Specimen Type Sample Site pH Bicarbonate Actual POC Total CO2 Base Excess O2 Saturation O2 % ABG pCO2 ABG pO2 Royal Test Respiration Rate O2 Delivery Device Liter Flow Minute Volume Vent Mode Tidal Volume POC PEEP POC Pressure Suppt Pressure High Pressure Low Time High Time Low EPAP IPAP Blood Gas Notified Whom Blood Gas Notified Time Sodium 143 Potassium 4.1 Chloride 102 Carbon Dioxide 42.0 H Anion Gap -1 L BUN 18 Creatinine 1.40 H Estim Creat Clear Calc 35.52 Est GFR (MDRD) Af Amer 49 L Est GFR (MDRD) Non-Af 40 L BUN/Creatinine Ratio 12.9 Glucose 102 Calcium 8.4 L Total Bilirubin 0.80 AST 296 H ALT 167 H Alkaline Phosphatase 153 H Ammonia Total Creatine Kinase Troponin I < 0.015 Total Protein 6.6 Albumin 3.5 Globulin 3.1 Albumin/Globulin Ratio 1.1 Triglycerides Lipase Urine Color Urine Clarity Urine pH Ur Specific [place] Urine Protein Urine Glucose (UA) Urine Ketones Urine Occult Blood Urine Nitrite Urine Bilirubin Urine Urobilinogen Ur Leukocyte Esterase Urine RBC Urine WBC Ur Squamous Epith Cells Ur Transition Epith Cell Urine Bacteria Hyaline Casts Fine Granular Casts Urine Mucus Ethyl Alcohol 3.0 Hepatitis A IgM Ab Hep Bs Antigen Hep B Core IgM Ab Hepatitis Interpret 10/15/18 10/15/18 10/15/18 13:00 13:30 13:38 WBC RBC Hgb Hct MCV MCH MCHC RDW RDW Differential Plt Count MPV Immature Gran % (Auto) Neut % (Auto) Lymph % (Auto) [place] % (Auto) Eos % (Auto) Baso % (Auto) Absolute Neuts (auto) Absolute Lymphs (auto) Total Counted Specimen Type ART Sample Site R Radial pH 7.21 L Bicarbonate Actual 43.2 H POC Total CO2 47 Base Excess 15 H O2 Saturation 91 L O2 % ABG pCO2 109.3 H* ABG pO2 81 Royal Test POS Respiration Rate O2 Delivery Device Nasal Can Liter Flow 4.0 Minute Volume Vent Mode Tidal Volume POC PEEP POC Pressure Suppt Pressure High Pressure Low Time High Time Low EPAP IPAP Blood Gas Notified Whom ED Blood Gas Notified Time 1334 Sodium Potassium Chloride Carbon Dioxide Anion Gap BUN Creatinine Estim Creat Clear Calc Est GFR (MDRD) Af Amer Est GFR (MDRD) Non-Af BUN/Creatinine Ratio Glucose Calcium Total Bilirubin AST ALT Alkaline Phosphatase Ammonia 60.0 H Total Creatine Kinase Troponin I Total Protein Albumin Globulin Albumin/Globulin Ratio Triglycerides Lipase Urine Color Urine Clarity Urine pH Ur Specific [place] Urine Protein Urine Glucose (UA) Urine Ketones Urine Occult Blood Urine Nitrite Urine Bilirubin Urine Urobilinogen Ur Leukocyte Esterase Urine RBC Urine WBC Ur Squamous Epith Cells Ur Transition Epith Cell Urine Bacteria Hyaline Casts Fine Granular Casts Urine Mucus Ethyl Alcohol Hepatitis A IgM Ab Pending Hep Bs Antigen Pending Hep B Core IgM Ab Pending Hepatitis Interpret Pending 10/15/18 10/15/18 10/15/18 15:08 15:32 15:32 WBC RBC Hgb Hct MCV MCH MCHC RDW RDW Differential Plt Count MPV Immature Gran % (Auto) Neut % (Auto) Lymph % (Auto) [place] % (Auto) Eos % (Auto) Baso % (Auto) Absolute Neuts (auto) Absolute Lymphs (auto) Total Counted Specimen Type GÉNESIS Cancelled Cancelled Sample Site L RADIAL Cancelled Cancelled pH 7.10 L* Cancelled Cancelled Bicarbonate Actual Not Reportable Cancelled Cancelled POC Total CO2 Not Reportable Cancelled Cancelled Base Excess Not Reportable Cancelled Cancelled O2 Saturation Not Reportable Cancelled Cancelled O2 % 35 Cancelled Cancelled ABG pCO2 > 130.0 H* Cancelled Cancelled ABG pO2 21 L* Cancelled Cancelled Royal Test POS Cancelled Cancelled Respiration Rate Cancelled Cancelled O2 Delivery Device Bi Pap Cancelled Cancelled Liter Flow Cancelled Cancelled Minute Volume Cancelled Cancelled Vent Mode Cancelled Cancelled Tidal Volume Cancelled Cancelled POC PEEP Cancelled Cancelled POC Pressure Suppt Cancelled Cancelled Pressure High Cancelled Cancelled Pressure Low Cancelled Cancelled Time High Cancelled Cancelled Time Low Cancelled Cancelled EPAP 8 Cancelled Cancelled IPAP 18 Cancelled Cancelled Blood Gas Notified Whom ED Cancelled Cancelled Blood Gas Notified Time 1508 Cancelled Cancelled Sodium Potassium Chloride Carbon Dioxide Anion Gap BUN Creatinine Estim Creat Clear Calc Est GFR (MDRD) Af Amer Est GFR (MDRD) Non-Af BUN/Creatinine Ratio Glucose Calcium Total Bilirubin AST ALT Alkaline Phosphatase Ammonia Total Creatine Kinase Troponin I Total Protein Albumin Globulin Albumin/Globulin Ratio Triglycerides Lipase Urine Color Urine Clarity Urine pH Ur Specific [place] Urine Protein Urine Glucose (UA) Urine Ketones Urine Occult Blood Urine Nitrite Urine Bilirubin Urine Urobilinogen Ur Leukocyte Esterase Urine RBC Urine WBC Ur Squamous Epith Cells Ur Transition Epith Cell Urine Bacteria Hyaline Casts Fine Granular Casts Urine Mucus Ethyl Alcohol Hepatitis A IgM Ab Hep Bs Antigen Hep B Core IgM Ab Hepatitis Interpret 10/15/18 10/15/18 10/15/18 15:45 17:15 17:46 WBC RBC Hgb Hct MCV MCH MCHC RDW RDW Differential Plt Count MPV Immature Gran % (Auto) Neut % (Auto) Lymph % (Auto) [place] % (Auto) Eos % (Auto) Baso % (Auto) Absolute Neuts (auto) Absolute Lymphs (auto) Total Counted Specimen Type ART Sample Site R Radial pH 7.39 Bicarbonate Actual 29.9 H POC Total CO2 31 Base Excess 5 H O2 Saturation 99 O2 % 35 ABG pCO2 49.1 H ABG pO2 126 H Royal Test NA Respiration Rate 16 O2 Delivery Device Vent Liter Flow Minute Volume Vent Mode A-C Tidal Volume 450 POC PEEP 5 POC Pressure Suppt Pressure High Pressure Low Time High Time Low EPAP IPAP Blood Gas Notified Whom ICU Blood Gas Notified Time 1745 Sodium Potassium Chloride Carbon Dioxide Anion Gap BUN Creatinine Estim Creat Clear Calc Est GFR (MDRD) Af Amer Est GFR (MDRD) Non-Af BUN/Creatinine Ratio Glucose Calcium Total Bilirubin AST ALT Alkaline Phosphatase Ammonia Total Creatine Kinase 39 Troponin I Total Protein Albumin Globulin Albumin/Globulin Ratio Triglycerides 96 Lipase Urine Color Yellow Urine Clarity Clear Urine pH 5.0 Ur Specific [place] 1.015 Urine Protein 15 H Urine Glucose (UA) Normal Urine Ketones Negative Urine Occult Blood 10 H Urine Nitrite Negative Urine Bilirubin 1 H Urine Urobilinogen 4 H Ur Leukocyte Esterase 25 H Urine RBC 0 SEEN Urine WBC 25-50 SEEN Ur Squamous Epith Cells 5-10 SEEN Ur Transition Epith Cell 0-5 SEEN Urine Bacteria 1+ Hyaline Casts 0-5 SEEN Fine Granular Casts 0-5 SEEN Urine Mucus 2+ Ethyl Alcohol Hepatitis A IgM Ab Hep Bs Antigen Hep B Core IgM Ab Hepatitis Interpret 10/16/18 10/16/18 10/16/18 05:25 05:25 05:25 WBC 7.7 RBC 3.77 L Hgb 10.8 L Hct 34.7 L MCV 92.0 MCH 28.6 MCHC 31.1 L RDW 13.0 RDW Differential 43.9 Plt Count 140 L MPV 10.7 Immature Gran % (Auto) 0.100 Neut % (Auto) 88.7 H Lymph % (Auto) 9.4 L [place] % (Auto) 1.8 Eos % (Auto) 0.0 Baso % (Auto) 0.0 Absolute Neuts (auto) 6.8 Absolute Lymphs (auto) 0.72 L Total Counted Not Reportable Specimen Type Sample Site pH Bicarbonate Actual POC Total CO2 Base Excess O2 Saturation O2 % ABG pCO2 ABG pO2 Royal Test Respiration Rate O2 Delivery Device Liter Flow Minute Volume Vent Mode Tidal Volume POC PEEP POC Pressure Suppt Pressure High Pressure Low Time High Time Low EPAP IPAP Blood Gas Notified Whom Blood Gas Notified Time Sodium 146 H Potassium 3.4 L Chloride 110 H Carbon Dioxide 28.0 Anion Gap 8 BUN 23 H Creatinine 1.11 H Estim Creat Clear Calc 44.80 Est GFR (MDRD) Af Amer 64 Est GFR (MDRD) Non-Af 53 L BUN/Creatinine Ratio 20.7 H Glucose 147 H Calcium 8.2 L Total Bilirubin 0.90 AST 130 H ALT 129 H Alkaline Phosphatase 147 H Ammonia Total Creatine Kinase Troponin I Total Protein 6.1 L Albumin 3.1 L Globulin 3.0 Albumin/Globulin Ratio 1.0 Triglycerides Lipase 110 Urine Color Urine Clarity Urine pH Ur Specific [place] Urine Protein Urine Glucose (UA) Urine Ketones Urine Occult Blood Urine Nitrite Urine Bilirubin Urine Urobilinogen Ur Leukocyte Esterase Urine RBC Urine WBC Ur Squamous Epith Cells Ur Transition Epith Cell Urine Bacteria Hyaline Casts Fine Granular Casts Urine Mucus Ethyl Alcohol Hepatitis A IgM Ab Hep Bs Antigen Hep B Core IgM Ab Hepatitis Interpret POC Glucose 10/15/18 13:09 POC Glucose 101 Medical Necessity - Tobacco Use Smoking Status: Former smoker Assessment/Plan All Active Problems (Last Updated 10/16/18 @ 11:24 by César Cagle DO) Acute and chronic respiratory failure with hypercapnia (Acute) Chronic obstructive pulmonary disease with acute exacerbation (Acute) Nocturnal leg cramps (Resolved) History of stroke (Resolved 02/03/17) History of non-ST elevation myocardial infarction (NSTEMI) (Resolved 02/03/17) History of pneumonia (Resolved) H/O: section (Resolved) History of lumpectomy (Resolved) History of cholecystectomy (Resolved) Hemorrhagic cerebrovascular accident (CVA) (Resolved) Metabolic encephalopathy (Resolved) Upper GI bleed (Resolved) Elevated serum creatinine (Acute) PRES (posterior reversible encephalopathy syndrome) (Resolved) Acute respiratory failure (Resolved) #1 acute on chronic combined respiratory failure-again patient is on the vent, pulmonary medicine is managing her care #2 chronic transaminase elevations-liver ultrasound was unremarkable #3 obstructive sleep apnea-patient is noncompliant with treatment #4 history of PTSD #5 acute kidney injury #6 hypokalemia-lab will be monitored, potassium replacement will be given as needed #7 elevated ammonia level-etiology unclear, repeat ammonia level today Code Visit Inpatient E&M: [id number] Subs Hosp L2
[2018-10-16] MEDS: Vital AF 1.2 Cal Liquid 1,000 ML 60 ML GT (17:18)
[2018-10-17] VITALS (39 sets, daily range): BP systolic 92–149; BP diastolic 46–88; PULSE 54–99; RESP 14–25; TEMP 36.2–38.1; O2SAT 89–100
[2018-10-17] MEDS: Ipratropium/Albuterol Sulfate 3 ML AMPUL.NEB INHALATION ×4 (02:02→15:10)
[2018-10-17] MEDS: fentaNYL drip 100 ML 5 MCG CONT INF (02:58)
[2018-10-17 07:01] LABS: Allen Test POS; Base Excess 1 mmol/L (-2 to +2); Bicarbonate 24.4 mmol/L (22-26); Blood Gas Specimen Type ART; FI02 25; Mode CPAP PS; O2 Delivery Device Vent; PEEP 5; PO2 63 mmHG (75-100); PS 5; SITE R Radial; SO2 94 % (95-99); Time Given 653; Total Carbon Dioxide 25 mmol/L; pCO2 33.2 mmHg (35-45); pH 7.48 (7.35-7.45)
--- NOTE | 2018-10-17 07:06 | NURSING ---
Pt extubated with this RN and RT at bedside. Pt extubated to 2L NC, which is home O2, and tolerating well. Cough and gag reflex intact. OG discontinued. Vocal chords intact.
--- NOTE | 2018-10-17 07:17 | PCM.PN.INT ---
Subjective: Patient did okay overnight. Patient did have a fever, but tolerated well. No hemodynamic instability was noted. Patient did have a spontaneous breathing trial this morning and was able to be successfully extubated to 2 L nasal cannula. Patient was on Precedex therapy and not able to provide much additional history. General: No apparent distress, - - RASS -1. Appears older than stated age. HEENT: Atraumatic, PERRLA, EOMI, Normocephalic, - - No scleral icterus or injection noted. Oral: Moist Mucosa, No Gingival or Mucosal Lesions/ Ulcerations Neck: Supple, No JVD, No Nodes, Trachea Midline Lungs: No rhonchi, No wheeze, No rales, Diminished, - - Symmetric expansion. No dullness to percussion. Cardiovascular: Regular rate, Regular Rhythm, Normal S1, Normal S2, No murmurs, No rub noted, No Gallop Abdomen: Bowel Sounds Present, Soft, Non Tender, Non-Distended Extremities: No cyanosis, No edema, Capillary Refill Less than 3 Seconds, Clubbing Skin: No rashes, No breakdown Musculoskeletal: No Tenderness to Palpation of Joints or Extremities Lymphatic: No Cervical, Supraclavicular, or Inguinal Adenopathy Neurological: Cranial nerves II-XII grossly intact, Neuro grossly intact, Motor Exam 5/5 strength throughout Psych/Mental Status: Flat Affect Vital Signs Temp Pulse Resp BP Pulse Ox 38.0 C H 65 17 146/77 H 96 10/17/18 06:00 10/17/18 06:00 10/17/18 06:00 10/17/18 06:00 10/17/18 06:00 Oxygen Flow Rate (L/min) 4 Oxygen Delivery Method Mechanical Ventilator Weight: 65.5 kg Body Mass Index (BMI) 25.7 Finger Stick Blood Glucose 101 Intake and Output for Last 24 Hours 10/15/18 10/16/18 10/17/18 23:59 23:59 23:59 Intake Total 3000 / 3000 3675 / 3675 803 / 803 Output Total 550 / 550 425 / 425 Balance 3000 / 3000 3125 / 3125 378 / 378 Labs (Last 48 Hours) 10/15/18 10/15/18 10/15/18 13:00 13:00 13:00 WBC 6.4 RBC 4.05 L Hgb 11.7 L Hct 40.0 MCV 98.8 MCH 28.9 MCHC 29.3 L RDW 13.1 RDW Differential 47.8 H Plt Count 162 MPV 10.1 Immature Gran % (Auto) 0.200 Neut % (Auto) 63.7 Lymph % (Auto) 22.9 Josephine % (Auto) 10.2 H Eos % (Auto) 2.7 Baso % (Auto) 0.3 Absolute Neuts (auto) 4.1 Absolute Lymphs (auto) 1.46 Total Counted Not Reportable Specimen Type Sample Site pH Bicarbonate Actual POC Total CO2 Base Excess O2 Saturation O2 % ABG pCO2 ABG pO2 Royal Test Respiration Rate O2 Delivery Device Liter Flow Minute Volume Vent Mode Tidal Volume POC PEEP POC Pressure Suppt Pressure High Pressure Low Time High Time Low EPAP IPAP Blood Gas Notified Whom Blood Gas Notified Time Sodium 143 Potassium 4.1 Chloride 102 Carbon Dioxide 42.0 H Anion Gap -1 L BUN 18 Creatinine 1.40 H Estim Creat Clear Calc 35.52 Est GFR (MDRD) Af Amer 49 L Est GFR (MDRD) Non-Af 40 L BUN/Creatinine Ratio 12.9 Glucose 102 Calcium 8.4 L Total Bilirubin 0.80 AST 296 H ALT 167 H Alkaline Phosphatase 153 H Ammonia Total Creatine Kinase Troponin I < 0.015 Total Protein 6.6 Albumin 3.5 Globulin 3.1 Albumin/Globulin Ratio 1.1 Triglycerides Lipase Urine Color Urine Clarity Urine pH Ur Specific [place] Urine Protein Urine Glucose (UA) Urine Ketones Urine Occult Blood Urine Nitrite Urine Bilirubin Urine Urobilinogen Ur Leukocyte Esterase Urine RBC Urine WBC Ur Squamous Epith Cells Ur Transition Epith Cell Urine Bacteria Hyaline Casts Fine Granular Casts Urine Mucus Ethyl Alcohol 3.0 Hepatitis A IgM Ab Hep Bs Antigen Hep B Core IgM Ab Hepatitis Interpret POC Glucose 10/15/18 10/15/18 10/15/18 13:00 13:09 13:30 WBC RBC Hgb Hct MCV MCH MCHC RDW RDW Differential Plt Count MPV Immature Gran % (Auto) Neut % (Auto) Lymph % (Auto) Josephine % (Auto) Eos % (Auto) Baso % (Auto) Absolute Neuts (auto) Absolute Lymphs (auto) Total Counted Specimen Type Sample Site pH Bicarbonate Actual POC Total CO2 Base Excess O2 Saturation O2 % ABG pCO2 ABG pO2 Royal Test Respiration Rate O2 Delivery Device Liter Flow Minute Volume Vent Mode Tidal Volume POC PEEP POC Pressure Suppt Pressure High Pressure Low Time High Time Low EPAP IPAP Blood Gas Notified Whom Blood Gas Notified Time Sodium Potassium Chloride Carbon Dioxide Anion Gap BUN Creatinine Estim Creat Clear Calc Est GFR (MDRD) Af Amer Est GFR (MDRD) Non-Af BUN/Creatinine Ratio Glucose Calcium Total Bilirubin AST ALT Alkaline Phosphatase Ammonia 60.0 H Total Creatine Kinase Troponin I Total Protein Albumin Globulin Albumin/Globulin Ratio Triglycerides Lipase Urine Color Urine Clarity Urine pH Ur Specific [place] Urine Protein Urine Glucose (UA) Urine Ketones Urine Occult Blood Urine Nitrite Urine Bilirubin Urine Urobilinogen Ur Leukocyte Esterase Urine RBC Urine WBC Ur Squamous Epith Cells Ur Transition Epith Cell Urine Bacteria Hyaline Casts Fine Granular Casts Urine Mucus Ethyl Alcohol Hepatitis A IgM Ab Pending Hep Bs Antigen Pending Hep B Core IgM Ab Pending Hepatitis Interpret Pending POC Glucose 101 10/15/18 10/15/18 10/15/18 13:38 15:08 15:32 WBC RBC Hgb Hct MCV MCH MCHC RDW RDW Differential Plt Count MPV Immature Gran % (Auto) Neut % (Auto) Lymph % (Auto) Josephine % (Auto) Eos % (Auto) Baso % (Auto) Absolute Neuts (auto) Absolute Lymphs (auto) Total Counted Specimen Type ART GÉNESIS Cancelled Sample Site R Radial L RADIAL Cancelled pH 7.21 L 7.10 L* Cancelled Bicarbonate Actual 43.2 H Not Reportable Cancelled POC Total CO2 47 Not Reportable Cancelled Base Excess 15 H Not Reportable Cancelled O2 Saturation 91 L Not Reportable Cancelled O2 % 35 Cancelled ABG pCO2 109.3 H* > 130.0 H* Cancelled ABG pO2 81 21 L* Cancelled Royal Test POS POS Cancelled Respiration Rate Cancelled O2 Delivery Device Nasal Can Bi Pap Cancelled Liter Flow 4.0 Cancelled Minute Volume Cancelled Vent Mode Cancelled Tidal Volume Cancelled POC PEEP Cancelled POC Pressure Suppt Cancelled Pressure High Cancelled Pressure Low Cancelled Time High Cancelled Time Low Cancelled EPAP 8 Cancelled IPAP 18 Cancelled Blood Gas Notified Whom ED ED Cancelled Blood Gas Notified Time 1334 1508 Cancelled Sodium Potassium Chloride Carbon Dioxide Anion Gap BUN Creatinine Estim Creat Clear Calc Est GFR (MDRD) Af Amer Est GFR (MDRD) Non-Af BUN/Creatinine Ratio Glucose Calcium Total Bilirubin AST ALT Alkaline Phosphatase Ammonia Total Creatine Kinase Troponin I Total Protein Albumin Globulin Albumin/Globulin Ratio Triglycerides Lipase Urine Color Urine Clarity Urine pH Ur Specific [place] Urine Protein Urine Glucose (UA) Urine Ketones Urine Occult Blood Urine Nitrite Urine Bilirubin Urine Urobilinogen Ur Leukocyte Esterase Urine RBC Urine WBC Ur Squamous Epith Cells Ur Transition Epith Cell Urine Bacteria Hyaline Casts Fine Granular Casts Urine Mucus Ethyl Alcohol Hepatitis A IgM Ab Hep Bs Antigen Hep B Core IgM Ab Hepatitis Interpret POC Glucose 10/15/18 10/15/18 10/15/18 15:32 15:45 17:15 WBC RBC Hgb Hct MCV MCH MCHC RDW RDW Differential Plt Count MPV Immature Gran % (Auto) Neut % (Auto) Lymph % (Auto) Josephine % (Auto) Eos % (Auto) Baso % (Auto) Absolute Neuts (auto) Absolute Lymphs (auto) Total Counted Specimen Type Cancelled Sample Site Cancelled pH Cancelled Bicarbonate Actual Cancelled POC Total CO2 Cancelled Base Excess Cancelled O2 Saturation Cancelled O2 % Cancelled ABG pCO2 Cancelled ABG pO2 Cancelled Royal Test Cancelled Respiration Rate Cancelled O2 Delivery Device Cancelled Liter Flow Cancelled Minute Volume Cancelled Vent Mode Cancelled Tidal Volume Cancelled POC PEEP Cancelled POC Pressure Suppt Cancelled Pressure High Cancelled Pressure Low Cancelled Time High Cancelled Time Low Cancelled EPAP Cancelled IPAP Cancelled Blood Gas Notified Whom Cancelled Blood Gas Notified Time Cancelled Sodium Potassium Chloride Carbon Dioxide Anion Gap BUN Creatinine Estim Creat Clear Calc Est GFR (MDRD) Af Amer Est GFR (MDRD) Non-Af BUN/Creatinine Ratio Glucose Calcium Total Bilirubin AST ALT Alkaline Phosphatase Ammonia Total Creatine Kinase 39 Troponin I Total Protein Albumin Globulin Albumin/Globulin Ratio Triglycerides 96 Lipase Urine Color Yellow Urine Clarity Clear Urine pH 5.0 Ur Specific [place] 1.015 Urine Protein 15 H Urine Glucose (UA) Normal Urine Ketones Negative Urine Occult Blood 10 H Urine Nitrite Negative Urine Bilirubin 1 H Urine Urobilinogen 4 H Ur Leukocyte Esterase 25 H Urine RBC 0 SEEN Urine WBC 25-50 SEEN Ur Squamous Epith Cells 5-10 SEEN Ur Transition Epith Cell 0-5 SEEN Urine Bacteria 1+ Hyaline Casts 0-5 SEEN Fine Granular Casts 0-5 SEEN Urine Mucus 2+ Ethyl Alcohol Hepatitis A IgM Ab Hep Bs Antigen Hep B Core IgM Ab Hepatitis Interpret POC Glucose 10/15/18 10/16/18 10/16/18 17:46 05:25 05:25 WBC 7.7 RBC 3.77 L Hgb 10.8 L Hct 34.7 L MCV 92.0 MCH 28.6 MCHC 31.1 L RDW 13.0 RDW Differential 43.9 Plt Count 140 L MPV 10.7 Immature Gran % (Auto) 0.100 Neut % (Auto) 88.7 H Lymph % (Auto) 9.4 L Josephine % (Auto) 1.8 Eos % (Auto) 0.0 Baso % (Auto) 0.0 Absolute Neuts (auto) 6.8 Absolute Lymphs (auto) 0.72 L Total Counted Not Reportable Specimen Type ART Sample Site R Radial pH 7.39 Bicarbonate Actual 29.9 H POC Total CO2 31 Base Excess 5 H O2 Saturation 99 O2 % 35 ABG pCO2 49.1 H ABG pO2 126 H Royal Test NA Respiration Rate 16 O2 Delivery Device Vent Liter Flow Minute Volume Vent Mode A-C Tidal Volume 450 POC PEEP 5 POC Pressure Suppt Pressure High Pressure Low Time High Time Low EPAP IPAP Blood Gas Notified Whom ICU Blood Gas Notified Time 1745 Sodium 146 H Potassium 3.4 L Chloride 110 H Carbon Dioxide 28.0 Anion Gap 8 BUN 23 H Creatinine 1.11 H Estim Creat Clear Calc 44.80 Est GFR (MDRD) Af Amer 64 Est GFR (MDRD) Non-Af 53 L BUN/Creatinine Ratio 20.7 H Glucose 147 H Calcium 8.2 L Total Bilirubin 0.90 AST 130 H ALT 129 H Alkaline Phosphatase 147 H Ammonia Total Creatine Kinase Troponin I Total Protein 6.1 L Albumin 3.1 L Globulin 3.0 Albumin/Globulin Ratio 1.0 Triglycerides Lipase Urine Color Urine Clarity Urine pH Ur Specific [place] Urine Protein Urine Glucose (UA) Urine Ketones Urine Occult Blood Urine Nitrite Urine Bilirubin Urine Urobilinogen Ur Leukocyte Esterase Urine RBC Urine WBC Ur Squamous Epith Cells Ur Transition Epith Cell Urine Bacteria Hyaline Casts Fine Granular Casts Urine Mucus Ethyl Alcohol Hepatitis A IgM Ab Hep Bs Antigen Hep B Core IgM Ab Hepatitis Interpret POC Glucose 10/16/18 10/16/18 10/17/18 05:25 11:35 06:53 WBC RBC Hgb Hct MCV MCH MCHC RDW RDW Differential Plt Count MPV Immature Gran % (Auto) Neut % (Auto) Lymph % (Auto) Josephine % (Auto) Eos % (Auto) Baso % (Auto) Absolute Neuts (auto) Absolute Lymphs (auto) Total Counted Specimen Type ART Sample Site R Radial pH 7.48 H Bicarbonate Actual 24.4 POC Total CO2 25 Base Excess 1 O2 Saturation 94 L O2 % 25 ABG pCO2 33.2 L ABG pO2 63 L Royal Test POS Respiration Rate O2 Delivery Device Vent Liter Flow Minute Volume Vent Mode CPAP PS Tidal Volume POC PEEP 5 POC Pressure Suppt 5 Pressure High Pressure Low Time High Time Low EPAP IPAP Blood Gas Notified Whom ICU Blood Gas Notified Time 653 Sodium Potassium Chloride Carbon Dioxide Anion Gap BUN Creatinine Estim Creat Clear Calc Est GFR (MDRD) Af Amer Est GFR (MDRD) Non-Af BUN/Creatinine Ratio Glucose Calcium Total Bilirubin AST ALT Alkaline Phosphatase Ammonia 22.0 Total Creatine Kinase Troponin I Total Protein Albumin Globulin Albumin/Globulin Ratio Triglycerides Lipase 110 Urine Color Urine Clarity Urine pH Ur Specific [place] Urine Protein Urine Glucose (UA) Urine Ketones Urine Occult Blood Urine Nitrite Urine Bilirubin Urine Urobilinogen Ur Leukocyte Esterase Urine RBC Urine WBC Ur Squamous Epith Cells Ur Transition Epith Cell Urine Bacteria Hyaline Casts Fine Granular Casts Urine Mucus Ethyl Alcohol Hepatitis A IgM Ab Hep Bs Antigen Hep B Core IgM Ab Hepatitis Interpret POC Glucose Microbiology 10/15/18 17:58 Urine Catheter - Fortune Urine Culture - Preliminary Culture exhibits no growth. 10/15/18 18:00 Mucosa - Nasopharyngeal Respiratory Panel (PCR) - Final Clinical Impression(s) from Imaging Studies Liver Ultrasound 10/16/18 07:09 IMPRESSION: Normal liver. Gallbladder not visualized. Correlation with surgical history is recommended. Cortical thinning in the right kidney. No hydronephrosis. Electronically Signed: Jhony Arce, at 9:32 EDT Tel , Service support , Medical Necessity - Tobacco Use Smoking Status: Former smoker Assessment/Plan All Active Problems (Last Updated 10/16/18 @ 11:24 by César Cagle DO) Acute and chronic respiratory failure with hypercapnia (Acute) Chronic obstructive pulmonary disease with acute exacerbation (Acute) Nocturnal leg cramps (Resolved) History of stroke (Resolved 02/03/17) History of non-ST elevation myocardial infarction (NSTEMI) (Resolved 02/03/17) History of pneumonia (Resolved) H/O: section (Resolved) History of lumpectomy (Resolved) History of cholecystectomy (Resolved) Hemorrhagic cerebrovascular accident (CVA) (Resolved) Metabolic encephalopathy (Resolved) Upper GI bleed (Resolved) Elevated serum creatinine (Acute) PRES (posterior reversible encephalopathy syndrome) (Resolved) Acute respiratory failure (Resolved) RECOMMENDATIONS: 1. Continue empiric antimicrobials, pending infectious workup. If infectious workup is negative, antibiotics can be discontinued next 24 hours. 2. Continue scheduled bronchodilators and steroids. 3. Discontinue Precedex 4. Bedside swallow evaluation 5. Maintain oxygen saturations 88-92%. 6. Recommend goals of care/CODE STATUS discussion IMPRESSIONS: 1. Acute on chronic combined respiratory failure Patient appears to have responded well to therapy. Patient able to be extubated today without complication. Clinical concern for slow deterioration given patient's history of noncompliance with BiPAP therapy leading to CO2 retention. Likely discontinue antibiotics after 24 hours if cultures are negative. Patient has had a fever overnight, but this may be secondary to Precedex therapy. Will need to discuss with patient and family about the futility of continuing aggressive measures with avoidance of BiPAP. 2. Acute kidney injury Improving. Likely prerenal in etiology. Recheck electrolytes this morning. We will continue to monitor urine output. There is no indication for renal replacement therapy at this time. 3. Hypokalemia Await repeat electrolytes. Repletion if indicated. 4. Elevated transaminases Prior hepatitis screen was negative in 2017. We will plan to check lipase level along with liver ultrasound. 5. Known obstructive sleep apnea The patient is noncompliant with the use of noninvasive positive pressure ventilation on an outpatient basis. TIME: 35 minutes of critical care time, independent of procedures, was spent addressing the patient's acute on chronic combined respiratory failure, acute kidney injury, hypokalemia, elevated transaminases, obstructive sleep apnea, review of all data and collaboration with the care team. (6 AM to 7 AM) Code Visit 9xxxx: [id number] Critical care first hour
[2018-10-17 08:08] LABS: Anion Gap 2 (5-15); BUN 26 mg/dL (7-18); BUN/Creat Ratio 28.5 RATIO (10-20); Calcium,Total 8.3 mg/dL (8.5-10.1); Chloride 110 mmol/L (98-107); Creatinine, Serum 0.91 mg/dL (0.55-1.02); EST Glomerular Filtration Rate 66 mL/min (>60); Est Glom Filt Rate - Afr Amer 80 mL/min (>60); Estimated Creatinine Clearance 53.93 ml/min; Glucose 157 mg/dL (74-106); Potassium 3.7 mmol/L (3.5-5.1); Sodium Level 142 mmol/L (136-145)
--- NOTE | 2018-10-17 08:33 | PCM.PN.HOSP ---
Subjective: The patient is extubated in the morning today. Patient is mild lethargic but answers questions appropriately. Discussed about the advanced directive/living will for future. Patient does not want further intubation. Will need palliative care consult because this was also discussed during previous admission and patient wanted full code although his brother agreed for palliative care consult. Vitals/I&O's: Vital Signs Temp Pulse Resp BP Pulse Ox 100.4 F H 77 20 H 148/88 H 98 10/17/18 06:00 10/17/18 07:12 10/17/18 07:06 10/17/18 07:00 10/17/18 07:07 Oxygen Flow Rate (L/min) 2 Oxygen Delivery Method Nasal Cannula Weight: 144 lb 6.444 oz Body Mass Index (BMI) 25.7 Finger Stick Blood Glucose 101 Intake and Output for Last 24 Hours 10/15/18 10/16/18 10/17/18 23:59 23:59 23:59 Intake Total 3000 / 3000 3675 / 3675 803 / 803 Output Total 550 / 550 425 / 425 Balance 3000 / 3000 3125 / 3125 378 / 378 General: Oriented x3, Cooperative, Lethargic HEENT: Atraumatic, PERRLA, EOMI, Normocephalic Oral: Dry Mucosa Neck: Supple, No JVD, Negative Carotid Bruits Lungs: Diminished, Rhonchi Cardiovascular: Regular rate, Normal S1, Normal S2, No murmurs Abdomen: Bowel Sounds Present, Soft, Non Tender, Non-Distended Extremities: No edema, Capillary Refill Less than 3 Seconds Musculoskeletal: No Tenderness to Palpation of Joints or Extremities, Arthritic Changes, Muscle Wasting Neurological: Cranial nerves II-XII grossly intact, Neuro grossly intact Microbiology Past 72 Hours 10/15/18 17:58 Urine Catheter - Fortune Urine Culture - Preliminary Culture exhibits no growth. 10/15/18 18:00 Mucosa - Nasopharyngeal Respiratory Panel (PCR) - Final Laboratory Results 10/15/18 13:00: Hepatitis A IgM Ab Pending, Hep Bs Antigen Pending, Hep B Core IgM Ab Pending, Hepatitis Interpret Pending 10/16/18 11:35: Ammonia 22.0 10/17/18 06:53: Specimen Type ART, Sample Site R Radial, pH 7.48 H, Bicarbonate Actual 24.4, POC Total CO2 25, Base Excess 1, O2 Saturation 94 L, O2 % 25, ABG pCO2 33.2 L, ABG pO2 63 L, Royal Test POS, O2 Delivery Device Vent, Vent Mode CPAP PS, POC PEEP 5, POC Pressure Suppt 5, Blood Gas Notified Whom ICU MD, Blood Gas Notified Time 653 10/17/18 07:40: Sodium 142, Potassium 3.7, Chloride 110 H, Carbon Dioxide 30.0, Anion Gap 2 L, BUN 26 H, Creatinine 0.91, Estim Creat Clear Calc 53.93, Est GFR (MDRD) Af Amer 80, Est GFR (MDRD) Non-Af 66, BUN/Creatinine Ratio 28.5 H, Glucose 157 H, Calcium 8.3 L Current Medications Acetaminophen (Tylenol) 650 mg PO Q6H PRN PRN PRN Reason: Mild Pain (scale 0-3)/T>100.7 Al Hydroxide/Mg Hydroxide (Mylanta Ii) 30 ml PO Q6H PRN PRN PRN Reason: Gastric burning Albuterol Sulfate (Ventolin Aerosols) 2.5 mg INHALATION Q2H PRN PRN PRN Reason: SHORTNESS OF BREATH Albuterol/Ipratropium (Duoneb) 3 ml INHALATION Q4H.RT [facility] Last Admin: 10/17/18 06:39 Dose: 3 ml Aspirin (Ecotrin) 81 mg PO DAILY@0800 [facility] Last Admin: 10/16/18 10:50 Dose: 81 mg Bisacodyl (Dulcolax) 10 mg RECTAL DAILY PRN PRN PRN Reason: Constipation Carvedilol (Coreg) 12.5 mg NG BID [facility] Last Admin: 10/16/18 21:21 Dose: 12.5 mg Chlorhexidine Gluconate () 1 each TOPICAL DAILY [facility] Last Admin: 10/16/18 05:12 Dose: 1 each Docusate Sodium (Colace) 200 mg PO BID PRN PRN PRN Reason: Constipation Enoxaparin Sodium (Lovenox) 40 mg SC DAILY@1000 [facility] Last Admin: 10/16/18 10:50 Dose: 40 mg Famotidine (Pepcid) 20 mg GT DAILY [facility] Last Admin: 10/16/18 10:51 Dose: 20 mg Piperacillin Sod/Tazobactam (Sod 3.375 gm/ Sodium Chloride) 50 mls @ 12.5 mls/hr IV Q8 [facility] Last Admin: 10/17/18 05:11 Dose: 12.5 mls/hr Methylprednisolone (Solu-Medrol) 40 mg IV Q8 [facility] Last Admin: 10/17/18 05:10 Dose: 40 mg Ondansetron HCl (Zofran) 4 mg IV Q8H PRN PRN PRN Reason: NAUSEA Polyethylene Glycol (Miralax) 17 gm PO DAILY [facility] Last Admin: 10/16/18 10:51 Dose: Not Given Sodium Chloride () 5 - 15 ml IV UD PRN PRN Reason: SALINE FLUSH Medical Necessity - Tobacco Use Smoking Status: Former smoker Assessment/Plan All Active Problems (Last Updated 10/16/18 @ 11:24 by César Cagle DO) Acute and chronic respiratory failure with hypercapnia (Acute) Chronic obstructive pulmonary disease with acute exacerbation (Acute) Nocturnal leg cramps (Resolved) History of stroke (Resolved 02/03/17) History of non-ST elevation myocardial infarction (NSTEMI) (Resolved 02/03/17) History of pneumonia (Resolved) H/O: section (Resolved) History of lumpectomy (Resolved) History of cholecystectomy (Resolved) Hemorrhagic cerebrovascular accident (CVA) (Resolved) Metabolic encephalopathy (Resolved) Upper GI bleed (Resolved) Elevated serum creatinine (Acute) PRES (posterior reversible encephalopathy syndrome) (Resolved) Acute respiratory failure (Resolved) The patient is a 62 year old F with multiple comorbidities including COPD, chronic hypercapnic and hypoxic respiratory failure on 2 L of home oxygen was brought into ER for altered mental status. History was mainly from medical record and ER physician. As per the note, patient was weak and fatigue yesterday and wke up several times yesterday night. She also complained of headache and tinnitus. This morning patient had 2 times vomiting and patient had hard time waking up by her boyfriend. EMS found normal blood sugar. On arrival patient was very somnolent and history was unobtainable. Prior to that, patient was also admitted in ICU in 09/14/2018 and discharged on 09/18 after intubation in ICU for acute on chronic combined respiratory failure secondary to COPD exacerbation. Patient heart rate is on lower side in 50s. Blood pressure also was in 70s but got better 105/82. Repeat ABG after 1 hour on BiPAP shows worsening of pH from 7.21-6.7. PCO2 was 109 on the first ABG. Initially she was put on BiPAP but later on patient intubated. UA is positive of WBC 5-10 cells, RBC 25-50 but nitrite negative. 1. Acute on chronic combined hypercarbic and hypoxic respiratory failure secondary to COPD exacerbation: Patient is being admitted in ICU. He has got better and got overcorrected. ABG today 7.48/30 3 on CPAP 5 mmHg on 25% FiO2. Bicarbonate BMP is 30. Baseline is 36. Discussed with pull socket assembler. 2. Acute on chronic respiratory acidosis secondary to COPD exacerbation: Respiratory panel negative. blood cultures have not shown no growth yet. Urine culture negative. Bronchodilator DuoNeb every 4 hourly. Solu-Medrol, chest physiotherapy. Mixed acid-base disorder. ABG shows severe respiratory acidosis with compensatory metabolic alkalosis. . 3. Chronic systolic heart failure: Last echo in September 2018 reported as EF 40-45% with stage I diastolic dysfunction. Moderate global hypokinesis of left ventricle. 1-2+ MR, trivial TR, RVSP 26 mmHg. Chest x-ray shows no acute thoracic pathology. 4 History of non-STEMI, stroke, right soleal vein DVT, hypertension and dyslipidemia, press syndrome: Patient has multiple comorbidities. Multiple comorbidities complicates the present care and expect difficult and delay recovery During last admission; code status ws discussed. At that time, Patient wanted all possible efforts to resuscitate her including intubation, CPR and vasopressors, although Her Brother agreed for palliative care consult. Palliative care consult. DVT prophylaxis: On Lovenox 40 g subcu daily Clinical Impression(s) from Imaging Studies Brain CT 10/15/18 13:06 IMPRESSION: Stable old right occipital and left parietal infarcts with encephalomalacia. No acute intracranial abnormality. Chest X-Ray 10/15/18 13:06 IMPRESSION: No acute thoracic pathology. Chest X-Ray 10/15/18 15:47 IMPRESSION: Satisfactory position of the support lines and tubes. No acute thoracic pathology. Microbiology Past 72 Hours 10/15/18 17:58 Urine Catheter - Fortune Urine Culture - Preliminary Culture exhibits no growth. 10/15/18 18:00 Mucosa - Nasopharyngeal Respiratory Panel (PCR) - Final Laboratory Results 10/15/18 13:00: Hepatitis A IgM Ab Pending, Hep Bs Antigen Pending, Hep B Core IgM Ab Pending, Hepatitis Interpret Pending 10/16/18 11:35: Ammonia 22.0 10/17/18 06:53: Specimen Type ART, Sample Site R Radial, pH 7.48 H, Bicarbonate Actual 24.4, POC Total CO2 25, Base Excess 1, O2 Saturation 94 L, O2 % 25, ABG pCO2 33.2 L, ABG pO2 63 L, Oryal Test POS, O2 Delivery Device Vent, Vent Mode CPAP PS, POC PEEP 5, POC Pressure Suppt 5, Blood Gas Notified Whom ICU MD, Blood Gas Notified Time 653 10/17/18 07:40: Sodium 142, Potassium 3.7, Chloride 110 H, Carbon Dioxide 30.0, Anion Gap 2 L, BUN 26 H, Creatinine 0.91, Estim Creat Clear Calc 53.93, Est GFR (MDRD) Af Amer 80, Est GFR (MDRD) Non-Af 66, BUN/Creatinine Ratio 28.5 H, Glucose 157 H, Calcium 8.3 L Code Visit Inpatient E&M: 40891 Subs Hosp L3
--- NOTE | 2018-10-17 08:37 | PN_ITS ---
Subjective: The patient is extubated in the morning today. Patient is mild lethargic but answers questions appropriately. Discussed about the advanced directive/living will for future. Patient does not want further intubation. Will need palliative care consult because this was also discussed during previous admission and patient wanted full code although his brother agreed for palliative care consult. Vitals/I&O's: Vital Signs Temp Pulse Resp BP Pulse Ox 100.4 F H 77 20 H 148/88 H 98 10/17/18 06:00 10/17/18 07:12 10/17/18 07:06 10/17/18 07:00 10/17/18 07:07 Oxygen Flow Rate (L/min) 2 Oxygen Delivery Method Nasal Cannula Weight: 144 lb 6.444 oz Body Mass Index (BMI) 25.7 Finger Stick Blood Glucose 101 Intake and Output for Last 24 Hours 10/15/18 10/16/18 10/17/18 23:59 23:59 23:59 Intake Total 3000 / 3000 3675 / 3675 803 / 803 Output Total 550 / 550 425 / 425 Balance 3000 / 3000 3125 / 3125 378 / 378 General: Oriented x3, Cooperative, Lethargic HEENT: Atraumatic, PERRLA, EOMI, Normocephalic Oral: Dry Mucosa Neck: Supple, No JVD, Negative Carotid Bruits Lungs: Diminished, Rhonchi Cardiovascular: Regular rate, Normal S1, Normal S2, No murmurs Abdomen: Bowel Sounds Present, Soft, Non Tender, Non-Distended Extremities: No edema, Capillary Refill Less than 3 Seconds Musculoskeletal: No Tenderness to Palpation of Joints or Extremities, Arthritic Changes, Muscle Wasting Neurological: Cranial nerves II-XII grossly intact, Neuro grossly intact Microbiology Past 72 Hours 10/15/18 17:58 Urine Catheter - Fortune Urine Culture - Preliminary Culture exhibits no growth. 10/15/18 18:00 Mucosa - Nasopharyngeal Respiratory Panel (PCR) - Final Laboratory Results 10/15/18 13:00: Hepatitis A IgM Ab Pending, Hep Bs Antigen Pending, Hep B Core IgM Ab Pending, Hepatitis Interpret Pending 10/16/18 11:35: Ammonia 22.0 10/17/18 06:53: Specimen Type ART, Sample Site R Radial, pH 7.48 H, Bicarbonate Actual 24.4, POC Total CO2 25, Base Excess 1, O2 Saturation 94 L, O2 % 25, ABG pCO2 33.2 L, ABG pO2 63 L, Royal Test POS, O2 Delivery Device Vent, Vent Mode CPAP PS, POC PEEP 5, POC Pressure Suppt 5, Blood Gas Notified Whom ICU MD, Blood Gas Notified Time 653 10/17/18 07:40: Sodium 142, Potassium 3.7, Chloride 110 H, Carbon Dioxide 30.0, Anion Gap 2 L, BUN 26 H, Creatinine 0.91, Estim Creat Clear Calc 53.93, Est GFR (MDRD) Af Amer 80, Est GFR (MDRD) Non-Af 66, BUN/Creatinine Ratio 28.5 H, Glucose 157 H, Calcium 8.3 L Current Medications Acetaminophen (Tylenol) 650 mg PO Q6H PRN PRN PRN Reason: Mild Pain (scale 0-3)/T>100.7 Al Hydroxide/Mg Hydroxide (Mylanta Ii) 30 ml PO Q6H PRN PRN PRN Reason: Gastric burning Albuterol Sulfate (Ventolin Aerosols) 2.5 mg INHALATION Q2H PRN PRN PRN Reason: SHORTNESS OF BREATH Albuterol/Ipratropium (Duoneb) 3 ml INHALATION Q4H.RT [facility] Last Admin: 10/17/18 06:39 Dose: 3 ml Aspirin (Ecotrin) 81 mg PO DAILY@0800 [facility] Last Admin: 10/16/18 10:50 Dose: 81 mg Bisacodyl (Dulcolax) 10 mg RECTAL DAILY PRN PRN PRN Reason: Constipation Carvedilol (Coreg) 12.5 mg NG BID [facility] Last Admin: 10/16/18 21:21 Dose: 12.5 mg Chlorhexidine Gluconate () 1 each TOPICAL DAILY [facility] Last Admin: 10/16/18 05:12 Dose: 1 each Docusate Sodium (Colace) 200 mg PO BID PRN PRN PRN Reason: Constipation Enoxaparin Sodium (Lovenox) 40 mg SC DAILY@1000 [facility] Last Admin: 10/16/18 10:50 Dose: 40 mg Famotidine (Pepcid) 20 mg GT DAILY [facility] Last Admin: 10/16/18 10:51 Dose: 20 mg Piperacillin Sod/Tazobactam (Sod 3.375 gm/ Sodium Chloride) 50 mls @ 12.5 mls/hr IV Q8 [facility] Last Admin: 10/17/18 05:11 Dose: 12.5 mls/hr Methylprednisolone (Solu-Medrol) 40 mg IV Q8 [facility] Last Admin: 10/17/18 05:10 Dose: 40 mg Ondansetron HCl (Zofran) 4 mg IV Q8H PRN PRN PRN Reason: NAUSEA Polyethylene Glycol (Miralax) 17 gm PO DAILY [facility] Last Admin: 10/16/18 10:51 Dose: Not Given Sodium Chloride () 5 - 15 ml IV UD PRN PRN Reason: SALINE FLUSH Medical Necessity - Tobacco Use Smoking Status: Former smoker Assessment/Plan All Active Problems (Last Updated 10/16/18 @ 11:24 by César Cagle DO) Acute and chronic respiratory failure with hypercapnia (Acute) Chronic obstructive pulmonary disease with acute exacerbation (Acute) Nocturnal leg cramps (Resolved) History of stroke (Resolved 02/03/17) History of non-ST elevation myocardial infarction (NSTEMI) (Resolved 02/03/17) History of pneumonia (Resolved) H/O: section (Resolved) History of lumpectomy (Resolved) History of cholecystectomy (Resolved) Hemorrhagic cerebrovascular accident (CVA) (Resolved) Metabolic encephalopathy (Resolved) Upper GI bleed (Resolved) Elevated serum creatinine (Acute) PRES (posterior reversible encephalopathy syndrome) (Resolved) Acute respiratory failure (Resolved) The patient is a 62 year old F with multiple comorbidities including COPD, chronic hypercapnic and hypoxic respiratory failure on 2 L of home oxygen was brought into ER for altered mental status. History was mainly from medical record and ER physician. As per the note, patient was weak and fatigue yesterday and wke up several times yesterday night. She also complained of headache and tinnitus. This morning patient had 2 times vomiting and patient had hard time waking up by her boyfriend. EMS found normal blood sugar. On arrival patient was very somnolent and history was unobtainable. Prior to that, patient was also admitted in ICU in 09/14/2018 and discharged on 09/18 after intubation in ICU for acute on chronic combined respiratory failure secondary to COPD exacerbation. Patient heart rate is on lower side in 50s. Blood pressure also was in 70s but got better 105/82. Repeat ABG after 1 hour on BiPAP shows worsening of pH from 7.21-6.7. PCO2 was 109 on the first ABG. Initially she was put on BiPAP but later on patient intubated. UA is positive of WBC 5-10 cells, RBC 25-50 but nitrite negative. 1. Acute on chronic combined hypercarbic and hypoxic respiratory failure secondary to COPD exacerbation: Patient is being admitted in ICU. He has got better and got overcorrected. ABG today 7.48/30 3 on CPAP 5 mmHg on 25% FiO2. Bicarbonate BMP is 30. Baseline is 36. Discussed with attending physician. 2. Acute on chronic respiratory acidosis secondary to COPD exacerbation: Respiratory panel negative. blood cultures have not shown no growth yet. Urine culture negative. Bronchodilator DuoNeb every 4 hourly. Solu-Medrol, chest physiotherapy. Mixed acid-base disorder. ABG shows severe respiratory acidosis with compensatory metabolic alkalosis. . 3. Chronic systolic heart failure: Last echo in September 2018 reported as EF 40- 45% with stage I diastolic dysfunction. Moderate global hypokinesis of left ventricle. 1-2+ MR, trivial TR, RVSP 26 mmHg. Chest x-ray shows no acute thoracic pathology. 4 History of non-STEMI, stroke, right soleal vein DVT, hypertension and dyslipidemia, press syndrome: Patient has multiple comorbidities. Multiple comorbidities complicates the present care and expect difficult and delay recovery During last admission; code status ws discussed. At that time, Patient wanted all possible efforts to resuscitate her including intubation, CPR and vasopressors, although Her Brother agreed for palliative care consult. Palliative care consult. DVT prophylaxis: On Lovenox 40 g subcu daily Clinical Impression(s) from Imaging Studies Brain CT 10/15/18 13:06 IMPRESSION: Stable old right occipital and left parietal infarcts with encephalomalacia. No acute intracranial abnormality. Chest X-Ray 10/15/18 13:06 IMPRESSION: No acute thoracic pathology. Chest X-Ray 10/15/18 15:47 IMPRESSION: Satisfactory position of the support lines and tubes. No acute thoracic pathology. Microbiology Past 72 Hours 10/15/18 17:58 Urine Catheter - Fortune Urine Culture - Preliminary Culture exhibits no growth. 10/15/18 18:00 Mucosa - Nasopharyngeal Respiratory Panel (PCR) - Final Laboratory Results 10/15/18 13:00: Hepatitis A IgM Ab Pending, Hep Bs Antigen Pending, Hep B Core IgM Ab Pending, Hepatitis Interpret Pending 10/16/18 11:35: Ammonia 22.0 10/17/18 06:53: Specimen Type ART, Sample Site R Radial, pH 7.48 H, Bicarbonate Actual 24.4, POC Total CO2 25, Base Excess 1, O2 Saturation 94 L, O2 % 25, ABG pCO2 33.2 L, ABG pO2 63 L, Royal Test POS, O2 Delivery Device Vent, Vent Mode CPAP PS, POC PEEP 5, POC Pressure Suppt 5, Blood Gas Notified Whom ICU MD, Blood Gas Notified Time 653 10/17/18 07:40: Sodium 142, Potassium 3.7, Chloride 110 H, Carbon Dioxide 30.0, Anion Gap 2 L, BUN 26 H, Creatinine 0.91, Estim Creat Clear Calc 53.93, Est GFR (MDRD) Af Amer 80, Est GFR (MDRD) Non-Af 66, BUN/Creatinine Ratio 28.5 H, Glucose 157 H, Calcium 8.3 L Code Visit Inpatient E&M: 85226 Subs Hosp L3
[2018-10-17] MEDS: Enoxaparin 40 MG/0.4 ML Syringe SC (11:17)
[2018-10-17] MEDS: Famotidine 20 MG Tablet GT (11:17)
[2018-10-17] MEDS: Polyethylene Glycol 3350 17 GM PACKET PO (11:17)
[2018-10-17] MEDS: Aspirin E.C. 81 MG Tablet PO (11:17)
[2018-10-17] MEDS: Carvedilol 12.5 MG Tablet NG (11:17)
--- NOTE | 2018-10-17 13:17 | CASEMGMT ---
RN CM Assessment/ Readmission Note Last admission: 09/14/18-09/16/18. DX: resp failure w/hypercapnia DC Disposition: Home 10/15/18 Presentation: COPD, Resp failure with hypercapnia Intro role of CM and purpose of RN CM assessment to patient, her brother and signficant other. Demographics, PCP and Pharmacy verified. PCP: Dr. Ulloa Preferred Pharmacy: [facility] Insurance: [employer] Prescription Benefit: yes LNOK: Brother, Marc Everett (does not have phone, lives up the road from pt. If Brother is needed- call Oscar [place], [place] @ [phone] and he will get in contact with brother) Living Arrangements: Lives with SO who is able to assist with shower, dressing, meals. Pt is independent in ambulation. LW/DPOA: pt does not have these completed, was to do with Palliative Care on Wednesday. FINESSE LALA reviewed that SW can complete here if they would like. Pt is considering. Palliative Care: Per Elda from [facility]- they had appt this Wednesday @ 11 am to see pt. They will keep this appt open in case pt is dc'd tomorrow, otherwise can be rescheduled. Transportation: family drives pt. DME: oxygen through [employer], Bipap- pt is noncompliant with wearing @ home. FINESSE LALA reinforced Dr. Duarte's instructions during ICU rounding that pt needed to be more compliant with Bipap or recurrent admissions would continue. Pt's SO to bring Bipap into hospital and per R.T. C: patient may benefit from [facility] on dc. Is agreeable to [facility]. Call to Maria Isabel @ [facility] requesting referral. She states they can see pt on dc, with anticipated dc date Wednesday10/19/18. Order entered for RN to see on dc. Patient DC goals: Home DC PLAN: Anticipate Home with [facility]. Lali BROWN RN ACM
[2018-10-17] MEDS: CHLORHEXIDINE GLUC 2% CLOTH 1 EACH TOWELETTE TOPICAL (15:07)
[2018-10-17] MEDS: Zolpidem Tartrate 5 MG Tablet PO (21:03)
[2018-10-17] MEDS: 0.9% NaCl Peripheral Flush Adult/Peds IV (21:05)
--- NOTE | 2018-10-17 21:20 | CPS ---
Pt home bipap set up with 2L bleed in. Pt placed on home pap unit. Pt mask noted to be larger than what she needs, pt stated to RT this is the one that works and she likes. Pt is noted to be non-compliant with pap therapy at home as pt told this RT that she has not worn pap in atleast 4 months.
[2018-10-18] VITALS (26 sets, daily range): BP systolic 110–156; BP diastolic 51–100; PULSE 53–111; RESP 16–26; TEMP 36.1–37; O2SAT 94–100
[2018-10-18 05:07] LABS: HEPATITIS B SURFACE AG Negative (Negative); Hepatitis A IgM Antibody Negative (Negative)
[2018-10-18 05:12] LABS: Differential Indicated SCAN CRITERIA MET; Hematocrit 36.3 % (37-47); Hemoglobin 11.7 g/dl (12.0-15.0); Lymphocyte % 5.4 % (19-41); Mean Corp Hgb Conc 32.2 g/gl (32-36); Mean Corpuscular Hgb 29.5 pg (27.0-32.0); Mean Corpuscular Volume 91.4 fL (81-99); Mean Platelet Vol. 11.5 fl (6.2-12.0); Monocyte% 3.6 % (0-10); Neutrophil # 9.99 X10^3/uL (2.7-7.7); Neutrophil % 90.5 % (47-70); POSITIVE COUNT NO; POSITIVE DIFFERENTIAL YES; POSITIVE MORPHOLOGY NO; Platelet Count 134 K/mm3 (150-450); RBC Distribution Width SD 46.2 fl (35.1-43.9); Red Blood Count 3.97 M/mm3 (4.2-5.4); White Blood Count 11.1 K/mm3 (4.4-11.0)
[2018-10-18 05:21] LABS: Anion Gap 4 (5-15); BUN 26 mg/dL (7-18); BUN/Creat Ratio 27.1 RATIO (10-20); Calcium,Total 8.4 mg/dL (8.5-10.1); Chloride 109 mmol/L (98-107); Creatinine, Serum 0.96 mg/dL (0.55-1.02); EST Glomerular Filtration Rate 62 mL/min (>60); Est Glom Filt Rate - Afr Amer 75 mL/min (>60); Estimated Creatinine Clearance 51.12 ml/min; Glucose 134 mg/dL (74-106); Potassium 3.6 mmol/L (3.5-5.1); Sodium Level 145 mmol/L (136-145)
[2018-10-18] MEDS: 0.9% NaCl Peripheral Flush Adult/Peds IV (05:32)
[2018-10-18] MEDS: CHLORHEXIDINE GLUC 2% CLOTH 1 EACH TOWELETTE TOPICAL (05:39)
[2018-10-18 06:20] LABS: Differential Comment SCANNED
[2018-10-18] MEDS: Ipratropium/Albuterol Sulfate 3 ML AMPUL.NEB INHALATION ×5 (06:43→22:05)
--- NOTE | 2018-10-18 07:16 | PN_ITS ---
Subjective: Patient did okay overnight. Patient has been confused throughout the evening, but is redirectable. Patient wore her BiPAP for approximately 3 hours. Patient did receive Ativan with little improvement. Patient denies any pain this morning. Patient is on baseline 2 L nasal cannula. General: Alert, No apparent distress, Confused, Disoriented, - - No conversational dyspnea appreciated HEENT: Atraumatic, PERRLA, EOMI, Normocephalic, - - Slight scleral injection without icterus Oral: Moist Mucosa, No Gingival or Mucosal Lesions/ Ulcerations Neck: Supple, No JVD, No Nodes, Trachea Midline Lungs: No rhonchi, No wheeze, No rales, Diminished, - - Symmetric expansion. No dullness to percussion. Cardiovascular: Regular rate, Regular Rhythm, Normal S1, Normal S2, No murmurs, No rub noted, No Gallop, - - Mild sinus bradycardia overnight. Coreg held Abdomen: Bowel Sounds Present, Soft, Non Tender, Non-Distended Extremities: No cyanosis, Capillary Refill Less than 3 Seconds, Clubbing, Edema - Trace lower extremity Skin: No rashes, No breakdown Musculoskeletal: No Tenderness to Palpation of Joints or Extremities Lymphatic: No Cervical, Supraclavicular, or Inguinal Adenopathy Neurological: Cranial nerves II-XII grossly intact, Neuro grossly intact, Motor Exam 5/5 strength throughout Psych/Mental Status: Flat Affect, Restless Vital Signs Temp Pulse Resp BP Pulse Ox 36.5 C L 72 20 H 123/93 H 99 10/18/18 02:00 10/18/18 06:00 10/18/18 06:00 10/18/18 06:00 10/18/18 06:00 Oxygen Flow Rate (L/min) 2 Oxygen Delivery Method Nasal Cannula Weight: 65.5 kg Body Mass Index (BMI) 25.7 Finger Stick Blood Glucose 101 Intake and Output for Last 24 Hours 10/16/18 10/17/18 10/18/18 23:59 23:59 23:59 Intake Total 3675 / 3675 1228 / 1228 741 / 741 Output Total 550 / 550 975 / 975 360 / 360 Balance 3125 / 3125 253 / 253 381 / 381 Labs (Last 48 Hours) 10/15/18 10/16/18 10/16/18 13:00 05:25 11:35 WBC RBC Hgb Hct MCV MCH MCHC RDW RDW Differential Plt Count MPV Immature Gran % (Auto) Neut % (Auto) Lymph % (Auto) [place] % (Auto) Eos % (Auto) Baso % (Auto) Absolute Neuts (auto) Absolute Lymphs (auto) Total Counted Differential Comment Specimen Type Sample Site pH Bicarbonate Actual POC Total CO2 Base Excess O2 Saturation O2 % ABG pCO2 ABG pO2 Royal Test O2 Delivery Device Vent Mode POC PEEP POC Pressure Suppt Blood Gas Notified Whom Blood Gas Notified Time Sodium Potassium Chloride Carbon Dioxide Anion Gap BUN Creatinine Estim Creat Clear Calc Est GFR (MDRD) Af Amer Est GFR (MDRD) Non-Af BUN/Creatinine Ratio Glucose Calcium Ammonia 22.0 Lipase 110 Hepatitis A IgM Ab Pending Hep Bs Antigen Pending Hep B Core IgM Ab Pending Hepatitis Interpret Pending 10/17/18 10/17/18 10/18/18 06:53 07:40 04:20 WBC 11.1 H RBC 3.97 L Hgb 11.7 L Hct 36.3 L MCV 91.4 MCH 29.5 MCHC 32.2 RDW 14.0 RDW Differential 46.2 H Plt Count 134 L MPV 11.5 Immature Gran % (Auto) 0.500 Neut % (Auto) 90.5 H Lymph % (Auto) 5.4 L [place] % (Auto) 3.6 Eos % (Auto) 0.0 Baso % (Auto) 0.0 Absolute Neuts (auto) 10.0 H Absolute Lymphs (auto) 0.60 L Total Counted Not Reportable Differential Comment SCANNED Specimen Type ART Sample Site R Radial pH 7.48 H Bicarbonate Actual 24.4 POC Total CO2 25 Base Excess 1 O2 Saturation 94 L O2 % 25 ABG pCO2 33.2 L ABG pO2 63 L Royal Test POS O2 Delivery Device Vent Vent Mode CPAP PS POC PEEP 5 POC Pressure Suppt 5 Blood Gas Notified Whom ICU MD Blood Gas Notified Time 653 Sodium 142 Potassium 3.7 Chloride 110 H Carbon Dioxide 30.0 Anion Gap 2 L BUN 26 H Creatinine 0.91 Estim Creat Clear Calc 53.93 Est GFR (MDRD) Af Amer 80 Est GFR (MDRD) Non-Af 66 BUN/Creatinine Ratio 28.5 H Glucose 157 H Calcium 8.3 L Ammonia Lipase Hepatitis A IgM Ab Hep Bs Antigen Hep B Core IgM Ab Hepatitis Interpret 10/18/18 04:20 WBC RBC Hgb Hct MCV MCH MCHC RDW RDW Differential Plt Count MPV Immature Gran % (Auto) Neut % (Auto) Lymph % (Auto) [place] % (Auto) Eos % (Auto) Baso % (Auto) Absolute Neuts (auto) Absolute Lymphs (auto) Total Counted Differential Comment Specimen Type Sample Site pH Bicarbonate Actual POC Total CO2 Base Excess O2 Saturation O2 % ABG pCO2 ABG pO2 Royal Test O2 Delivery Device Vent Mode POC PEEP POC Pressure Suppt Blood Gas Notified Whom Blood Gas Notified Time Sodium 145 Potassium 3.6 Chloride 109 H Carbon Dioxide 32.0 Anion Gap 4 L BUN 26 H Creatinine 0.96 Estim Creat Clear Calc 51.12 Est GFR (MDRD) Af Amer 75 Est GFR (MDRD) Non-Af 62 BUN/Creatinine Ratio 27.1 H Glucose 134 H Calcium 8.4 L Ammonia Lipase Hepatitis A IgM Ab Hep Bs Antigen Hep B Core IgM Ab Hepatitis Interpret Microbiology 10/15/18 17:58 Urine Catheter - Fortune Urine Culture - Preliminary Culture exhibits no growth. 10/15/18 18:00 Mucosa - Nasopharyngeal Respiratory Panel (PCR) - Final Medical Necessity - Tobacco Use Smoking Status: Former smoker Assessment/Plan All Active Problems (Last Updated 10/16/18 @ 11:24 by César Cagle DO) Acute and chronic respiratory failure with hypercapnia (Acute) Chronic obstructive pulmonary disease with acute exacerbation (Acute) Nocturnal leg cramps (Resolved) History of stroke (Resolved 02/03/17) History of non-ST elevation myocardial infarction (NSTEMI) (Resolved 02/03/17) History of pneumonia (Resolved) H/O: section (Resolved) History of lumpectomy (Resolved) History of cholecystectomy (Resolved) Hemorrhagic cerebrovascular accident (CVA) (Resolved) Metabolic encephalopathy (Resolved) Upper GI bleed (Resolved) Elevated serum creatinine (Acute) PRES (posterior reversible encephalopathy syndrome) (Resolved) Acute respiratory failure (Resolved) RECOMMENDATIONS: 1. Continue empiric antimicrobials, pending infectious workup. Okay to discontinue antibiotics if blood culture negative today 2. Continue scheduled bronchodilators and wean steroids. 3. Continue delirium protocol 4. Maintain oxygen saturations 88-92%. 5. Recommend goals of care/CODE STATUS discussion. ASV with any sleep 6. Okay to leave the intensive care unit from my perspective. IMPRESSIONS: 1. Acute on chronic combined respiratory failure Patient appears to have responded well to therapy. Patient appears to be tolerating extubation. However, patient did not use ASV much overnight. Clinical concern the patient will continue to have CO2 retention leading to repeat respiratory failure. We will have to discuss with patient's family about goals of therapy this morning. Patient likely okay to leave the intensive care unit from my perspective. ASV should be continued with any sleep, even during the day. 2. Acute kidney injury Improving. Likely prerenal in etiology. We will continue to monitor urine output. There is no indication for renal replacement therapy at this time. 3. Hypokalemia Repleted 4. Elevated transaminases Prior hepatitis screen was negative in 2017. Workup has been relatively unremarkable. 5. Known obstructive sleep apnea The patient is noncompliant with the use of noninvasive positive pressure ventilation on an outpatient basis. 6. Delirium Patient appears to be suffering from delirium at this time. Patient does have multiple possible etiologies. Will decrease steroids. Patient did receive Ambien overnight. Continue with delirium protocol. Code Visit Inpatient E&M: 68198 [facility] Hosp L3
[2018-10-18] MEDS: Aspirin E.C. 81 MG Tablet PO (08:23)
[2018-10-18] MEDS: Famotidine 20 MG Tablet PO (10:08)
[2018-10-18] MEDS: Polyethylene Glycol 3350 17 GM PACKET PO (10:09)
[2018-10-18] MEDS: Enoxaparin 40 MG/0.4 ML Syringe SC (10:09)
[2018-10-18] MEDS: Carvedilol 12.5 MG Tablet PO ×2 (10:09→21:42)
[2018-10-18 12:14] LABS: Hepatitis B Core AB IgM Negative (Negative)
--- NOTE | 2018-10-18 19:10 | PCM.PROGNOTE ---
Subjective: Patient was seen and examined today, she continues to have confusion but is directable. Patient states she sees people in the [place] using methamphetamines. Patient's ammonia level this afternoon was 25. Patient is currently stable on 2 L oxygen via nasal cannula. - Physical Exam General: Alert, Cooperative, No apparent distress, Well developed HEENT: Atraumatic, PERRLA, EOMI, Normocephalic Oral: Moist Mucosa Neck: Supple, Trachea Midline, Thyroid Normal Size and Texture Lungs: Clear to auscultation, Normal air movement, No rhonchi, No wheeze, No rales Cardiovascular: Regular rate, Regular Rhythm, Normal S1, Normal S2, No murmurs, No Ectopic Activity, PMI Normal, No rub noted, No Gallop Abdomen: Bowel Sounds Present, Soft, Non Tender, Non-Distended, No hernias noted Extremities: No clubbing, No cyanosis, No edema, Capillary Refill Less than 3 Seconds Skin: No rashes, No breakdown Musculoskeletal: No Tenderness to Palpation of Joints or Extremities Neurological: Cranial nerves II-XII grossly intact, Neuro grossly intact, Sensory exam intact to light touch and pain, Coordination normal Psych/Mental Status: - - Patient is alert but has confusion Vital Signs Temp Pulse Resp BP Pulse Ox 98.0 F 83 16 156/100 H 94 10/18/18 15:43 10/18/18 17:43 10/18/18 15:43 10/18/18 15:43 10/18/18 15:43 Oxygen Flow Rate (L/min) 2 Oxygen Delivery Method Nasal Cannula Weight: 65.5 kg Body Mass Index (BMI) 25.7 Finger Stick Blood Glucose 101 Intake and Output for Last 24 Hours 10/16/18 10/17/18 10/18/18 23:59 23:59 23:59 Intake Total 3675 / 3675 1228 / 1228 1041 / 1041 Output Total 550 / 550 975 / 975 560 / 560 Balance 3125 / 3125 253 / 253 481 / 481 Microbiology Past 72 Hours 10/15/18 17:15 Blood Culture - Preliminary Blood Culture (Wb) - Anticubital Left No growth in 48 hours. 10/15/18 17:58 Urine Culture - Final Urine Catheter - Fortune Culture exhibits no growth. 10/15/18 18:00 Respiratory Panel (PCR) - Final Mucosa - Nasopharyngeal Laboratory Tests Past 24 Hrs 10/15/18 10/15/18 10/18/18 13:00 15:08 04:20 WBC 11.1 H RBC 3.97 L Hgb 11.7 L Hct 36.3 L MCV 91.4 MCH 29.5 MCHC 32.2 RDW 14.0 RDW Differential 46.2 H Plt Count 134 L MPV 11.5 Immature Gran % (Auto) 0.500 Neut % (Auto) 90.5 H Lymph % (Auto) 5.4 L [place] % (Auto) 3.6 Eos % (Auto) 0.0 Baso % (Auto) 0.0 Absolute Neuts (auto) 10.0 H Absolute Lymphs (auto) 0.60 L Total Counted Not Reportable Differential Comment SCANNED Bicarbonate Actual TNP POC Total CO2 TNP Base Excess TNP O2 Saturation TNP Sodium Potassium Chloride Carbon Dioxide Anion Gap BUN Creatinine Estim Creat Clear Calc Est GFR (MDRD) Af Amer Est GFR (MDRD) Non-Af BUN/Creatinine Ratio Glucose Calcium Ammonia Hepatitis A IgM Ab Negative Hep Bs Antigen Negative Hep B Core IgM Ab Negative 10/18/18 10/18/18 04:20 16:56 WBC RBC Hgb Hct MCV MCH MCHC RDW RDW Differential Plt Count MPV Immature Gran % (Auto) Neut % (Auto) Lymph % (Auto) [place] % (Auto) Eos % (Auto) Baso % (Auto) Absolute Neuts (auto) Absolute Lymphs (auto) Total Counted Differential Comment Bicarbonate Actual POC Total CO2 Base Excess O2 Saturation Sodium 145 Potassium 3.6 Chloride 109 H Carbon Dioxide 32.0 Anion Gap 4 L BUN 26 H Creatinine 0.96 Estim Creat Clear Calc 51.12 Est GFR (MDRD) Af Amer 75 Est GFR (MDRD) Non-Af 62 BUN/Creatinine Ratio 27.1 H Glucose 134 H Calcium 8.4 L Ammonia 25.0 Hepatitis A IgM Ab Hep Bs Antigen Hep B Core IgM Ab Medical Necessity - Tobacco Use Smoking Status: Former smoker Assessment/Plan All Active Problems (Last Updated 10/16/18 @ 11:24 by César Cagle DO) Acute and chronic respiratory failure with hypercapnia (Acute) Chronic obstructive pulmonary disease with acute exacerbation (Acute) Nocturnal leg cramps (Resolved) History of stroke (Resolved 02/03/17) History of non-ST elevation myocardial infarction (NSTEMI) (Resolved 02/03/17) History of pneumonia (Resolved) H/O: section (Resolved) History of lumpectomy (Resolved) History of cholecystectomy (Resolved) Hemorrhagic cerebrovascular accident (CVA) (Resolved) Metabolic encephalopathy (Resolved) Upper GI bleed (Resolved) Elevated serum creatinine (Acute) PRES (posterior reversible encephalopathy syndrome) (Resolved) Acute respiratory failure (Resolved) #1 acute on chronic combined respiratory failure-patient is stable on nasal cannula oxygen #2 chronic transaminase elevations-liver ultrasound was unremarkable #3 obstructive sleep apnea-patient is noncompliant with treatment #4 history of PTSD #5 acute kidney injury #6 hypokalemia-corrected #7 elevated ammonia [id number] unclear #8 metabolic encephalopathy-etiology unclear at this point, continue supportive care Code Visit Inpatient E&M: 84134 Subs Hosp L2
--- NOTE | 2018-10-18 20:31 | NURSING ---
Pt. confused and aggitated when this nurse came in to room to assess patient. Family also in room. Pt. sitting in chair. This nurse introduced self to patient and asked if could take vital signs and perform assessment. Pt. cooperative. Assisted pt. to bed and performed assessment without issue. Pt. is visiting with family at this time and in bed. Will continue to monitor patient.
--- NOTE | 2018-10-18 21:06 | PCM.PN.BLA ---
Progress Note Called to see patient who is reported confused, agitated, slightly combative. Staffing reportedly low and sitter unavailable. Vitals reviewed, appears relatively stable, blood pressure slightly elevated, tachycardic, on 2 L of oxygen, saturating at a 96% Patient seem and examined. Oriented to self only. Family in the room. EKG shows QTc 463 Acute delirium Plan: Haldol 1mg IV q6 Melatonin 3mg po qhs EKG in am to monitor for QTc prolongation
[2018-10-18] MEDS: MELATONIN 3 MG TABLET PO (21:42)
[2018-10-18] MEDS: Haloperidol Lactate 5 MG/ML Vial 1 MG IM (21:43)
[2018-10-19] VITALS (10 sets, daily range): BP systolic 141–149; BP diastolic 76–88; PULSE 67–88; RESP 16–22; TEMP 36.4–36.7; O2SAT 2–100
--- NOTE | 2018-10-19 00:07 | NURSING ---
PT. Resting in bed. Cooperative with no aggitation at this time. Will continue to monitor
--- NOTE | 2018-10-19 00:55 | NURSING ---
Pt. requesting to wear oxygen instead of CPAP at this time. 2L O2 Nasal Canula applied.
[2018-10-19] MEDS: Ipratropium/Albuterol Sulfate 3 ML AMPUL.NEB INHALATION ×3 (02:25→11:07)
[2018-10-19] MEDS: Haloperidol Lactate 5 MG/ML Vial 1 MG IM ×2 (02:30→05:12)
--- NOTE | 2018-10-19 05:55 | EKG12_ITS ---
Test Reason : AM EKG Blood Pressure : / mmHG Vent. Rate : 077 BPM Atrial Rate : 077 BPM P-R Int : 116 ms QRS Dur : 080 ms QT Int : 376 ms P-R-T Axes : 084 045 030 degrees QTc Int : 425 ms Normal sinus rhythm Normal ECG Confirmed by RUSS MENDES, ANALY ([id number]), purchasing expeditor NICOLE ARANGO ([id number]) on 10/24/2018 10:53:46 AM Referred By: Mackenzie Avalos Confirmed By:ANALY SOLANO MD
[2018-10-19 07:29] LABS: Anion Gap 3 (5-15); BUN 18 mg/dL (7-18); BUN/Creat Ratio 31.5 RATIO (10-20); Calcium,Total 8.5 mg/dL (8.5-10.1); Chloride 107 mmol/L (98-107); Creatinine, Serum 0.57 mg/dL (0.55-1.02); EST Glomerular Filtration Rate 113 mL/min (>60); Est Glom Filt Rate - Afr Amer 137 mL/min (>60); Glucose 122 mg/dL (74-106); Potassium 3.4 mmol/L (3.5-5.1); Sodium Level 143 mmol/L (136-145)
[2018-10-19] MEDS: Aspirin E.C. 81 MG Tablet PO (10:31)
[2018-10-19] MEDS: Carvedilol 12.5 MG Tablet PO (10:32)
[2018-10-19] MEDS: Enoxaparin 40 MG/0.4 ML Syringe SC (10:32)
[2018-10-19] MEDS: Famotidine 20 MG Tablet PO (10:32)
--- NOTE | 2018-10-19 11:20 | DCINST_ITS ---
You will use the following diet at home:: No restrictions Your food should be the consistency of: Regular Your liquids should be the consistency of: Regular/Thin Discharge Activity: Return to Normal Activity Weight Bearing Status: Full weight bearing Additional Instructions: wear your Bipap while sleeping Allergies/Adverse Reactions: Allergies tetanus and diphtheria toxoids [tetanus & diphtheria toxoids] Allergy (Verified 08/18/18 10:30) Hives Medications to take at Discharge Albuterol IH (ProAir) [Proair Hfa] 1 puff INHALATION Q4H PRN PRN #1 inhaler 09/17/17 aspirin 81 mg tablet,delayed release 81 mg PO DAILY #90 tab 03/02/18 Folic Acid 1 mg PO DAILY 09/14/18 Multivitamin with Minerals [Multiple Vitamin] 1 tab PO DAILY 09/14/18 Pantoprazole Sodium 40 mg PO QAM 09/14/18 Spironolactone 12.5 mg PO DAILY 09/14/18 Acetaminophen [Tylenol Tablet] 650 mg PO Q6H PRN PRN tablet 09/16/18 Ipratropium/Albuterol Sulfate [Duoneb] 3 ml INHALATION 4X/DAY #120 ampul.neb 09/16/18 carvedilol 12.5 mg tablet 12.5 mg PO BID #180 tab 10/18/18 Acetaminophen [Tylenol Tablet] 650 mg PO Q6H PRN PRN tablet 10/19/18 Carvedilol [Coreg (Beta Indy)] 12.5 mg PO BID tablet 10/19/18 Primary Care Physician: Glenn Ulloa MD [Primary Care Provider] - Please follow up with your Primary Care Physician in: in one week Test Results: Test results from this visit will be discussed in further detail at your follow- up appointment, if applicable. Please Follow Up With: Mike Duarte MD When: in 2 weeks
--- NOTE | 2018-10-19 11:34 | PN_ITS ---
Subjective: Patient did okay overnight. Patient once again refused to use any noninvasive therapy. Patient and boyfriend were present during my evaluation. Sadiq discussion about the results of noncompliance with nocturnal therapy resulting in repeat intubation and decompensation. Patient is not reporting any significant cough. Patient did have some episodes of confusion, but appears improved today. General: Alert, Oriented x3, Cooperative, No apparent distress, - - Appears older than stated age. Speaking in full sentences. HEENT: Atraumatic, PERRLA, EOMI, Normocephalic, - - Slight scleral injection without icterus Oral: Moist Mucosa, No Gingival or Mucosal Lesions/ Ulcerations, - - Poor dentition Neck: Supple, No JVD, No Nodes, Trachea Midline Lungs: No rhonchi, No wheeze, No rales, Diminished, - - Symmetric expansion. No dullness to percussion. Cardiovascular: Regular rate, Regular Rhythm, Normal S1, Normal S2, No murmurs, No rub noted, No Gallop Abdomen: Bowel Sounds Present, Soft, Non Tender, Non-Distended Extremities: No clubbing, No cyanosis, No edema, Capillary Refill Less than 3 Seconds Skin: No rashes, No breakdown Musculoskeletal: No Tenderness to Palpation of Joints or Extremities Lymphatic: No Cervical, Supraclavicular, or Inguinal Adenopathy Neurological: Cranial nerves II-XII grossly intact, Neuro grossly intact, Motor Exam 5/5 strength throughout Psych/Mental Status: Normal Affect, Appropriate Vital Signs Temp Pulse Resp BP Pulse Ox 36.6 C 86 16 144/76 H 96 10/19/18 09:21 10/19/18 09:21 10/19/18 09:21 10/19/18 09:21 10/19/18 09:21 Oxygen Flow Rate (L/min) 2 Oxygen Delivery Method Nasal Cannula Weight: 65.5 kg Body Mass Index (BMI) 25.7 Finger Stick Blood Glucose 101 Intake and Output for Last 24 Hours 10/17/18 10/18/18 10/19/18 23:59 23:59 23:59 Intake Total 1228 / 1228 1041 / 1041 600 / 600 Output Total 975 / 975 560 / 560 Balance 253 / 253 481 / 481 600 / 600 Labs (Last 48 Hours) 10/15/18 10/15/18 10/18/18 13:00 15:08 04:20 WBC 11.1 H RBC 3.97 L Hgb 11.7 L Hct 36.3 L MCV 91.4 MCH 29.5 MCHC 32.2 RDW 14.0 RDW Differential 46.2 H Plt Count 134 L MPV 11.5 Immature Gran % (Auto) 0.500 Neut % (Auto) 90.5 H Lymph % (Auto) 5.4 L [place] % (Auto) 3.6 Eos % (Auto) 0.0 Baso % (Auto) 0.0 Absolute Neuts (auto) 10.0 H Absolute Lymphs (auto) 0.60 L Total Counted Not Reportable Differential Comment SCANNED Bicarbonate Actual TNP POC Total CO2 TNP Base Excess TNP O2 Saturation TNP Sodium Potassium Chloride Carbon Dioxide Anion Gap BUN Creatinine Estim Creat Clear Calc Est GFR (MDRD) Af Amer Est GFR (MDRD) Non-Af BUN/Creatinine Ratio Glucose Calcium Ammonia Hepatitis A IgM Ab Negative Hep Bs Antigen Negative Hep B Core IgM Ab Negative 10/18/18 10/18/18 10/19/18 04:20 16:56 07:05 WBC RBC Hgb Hct MCV MCH MCHC RDW RDW Differential Plt Count MPV Immature Gran % (Auto) Neut % (Auto) Lymph % (Auto) [place] % (Auto) Eos % (Auto) Baso % (Auto) Absolute Neuts (auto) Absolute Lymphs (auto) Total Counted Differential Comment Bicarbonate Actual POC Total CO2 Base Excess O2 Saturation Sodium 145 143 Potassium 3.6 3.4 L Chloride 109 H 107 Carbon Dioxide 32.0 33.0 H Anion Gap 4 L 3 L BUN 26 H 18 Creatinine 0.96 0.57 Estim Creat Clear Calc 51.12 86.10 Est GFR (MDRD) Af Amer 75 137 Est GFR (MDRD) Non-Af 62 113 BUN/Creatinine Ratio 27.1 H 31.5 H Glucose 134 H 122 H Calcium 8.4 L 8.5 Ammonia 25.0 Hepatitis A IgM Ab Hep Bs Antigen Hep B Core IgM Ab Microbiology 10/15/18 17:15 Blood Culture (Wb) - Anticubital Left Blood Culture - Preliminary No growth in 48 hours. 10/15/18 17:58 Urine Catheter - Fortune Urine Culture - Final Culture exhibits no growth. Medical Necessity - Tobacco Use Smoking Status: Former smoker Assessment/Plan All Active Problems (Last Updated 10/16/18 @ 11:24 by César Cagle DO) Acute and chronic respiratory failure with hypercapnia (Acute) Chronic obstructive pulmonary disease with acute exacerbation (Acute) Nocturnal leg cramps (Resolved) History of stroke (Resolved 02/03/17) History of non-ST elevation myocardial infarction (NSTEMI) (Resolved 02/03/17) History of pneumonia (Resolved) H/O: section (Resolved) History of lumpectomy (Resolved) History of cholecystectomy (Resolved) Hemorrhagic cerebrovascular accident (CVA) (Resolved) Metabolic encephalopathy (Resolved) Upper GI bleed (Resolved) Elevated serum creatinine (Acute) PRES (posterior reversible encephalopathy syndrome) (Resolved) Acute respiratory failure (Resolved) RECOMMENDATIONS: 1. Okay to discontinue antibiotics 2. Continue scheduled bronchodilators. Discontinue steroids. 3. Continue delirium protocol 4. Maintain oxygen saturations 88-92%. 5. Recommend goals of care/CODE STATUS discussion. ASV with any sleep 6. Follow-up with nurse practitioner in 2 weeks at our office IMPRESSIONS: 1. Acute on chronic combined respiratory failure Patient appears to be at her baseline at this time. Clinical suspicion for acute on chronic respiratory failure secondary to noncompliance with ASV. F rank discussion with patient about the futility of continued intubation if she is not going to comply with nocturnal therapy. Patient's boyfriend was present for our conversation and states that he will try. However, patient appears to be pre-contemplative despite multiple attempts to explain the role of ASV and her overall disease plan of care. Went as far as to discuss placement of tracheostomy with nocturnal mechanical ventilation, but patient was not interested. 2. Acute kidney injury Improving. Likely prerenal in etiology. We will continue to monitor ur ine output. There is no indication for renal replacement therapy at this time. 3. Hypokalemia Repleted 4. Elevated transaminases Prior hepatitis screen was negative in 2017. Workup has been relatively unremarkable. 5. Known obstructive sleep apnea The patient is noncompliant with the use of noninvasive positive pressure ventilation on an outpatient basis. 6. Delirium Patient appears to be suffering from delirium at this time. Patient does have multiple possible etiologies. Will discontinue steroids. Continue with delirium protocol. Code Visit Inpatient E&M: 46985 Subs Hosp L2
--- NOTE | 2018-10-19 13:48 | NURSING ---
picc line d/c and pt tolerated well- tip intact and 35 shaneka visable before the tip- pressure applied and occulusive dressing applied
--- NOTE | 2018-10-20 12:34 | CASEMGMT ---
FINESSE LALA DC PHONE CALL DC DATE: 10/19/18 DC Disposition: Home LACE/STRATA: 17/10 Intro role of CM to patient's brother via phone. Pt was visiting with Home Nurse. No questions re: instructions, medications per brother. FINESSE LALA let him know if questions arise, to contact home health nurse. States pt is doing well at home. Lali HILLN FINESSE AC
--- NOTE | 2018-10-24 15:54 | PCM.DC.SUM ---
Discharge Date and Diagnosis Date of Admission: 10/15/18 Date of Discharge: 10/19/18 - Primary Discharge Diagnosis #1 acute on chronic combined respiratory failure #2 chronic transaminase elevations-etiology unclear #3 obstructive sleep apnea-patient is noncompliant with treatment #4 history of PTSD #5 acute kidney injury #6 hypokalemia-corrected #7 elevated ammonia [id number] unclear #8 metabolic encephalopathy-etiology unclear #9 noncompliance with medical treatment - Secondary Discharge Diagnosis Chronic Problems (Last Updated 10/16/18 @ 11:24 by César Cagle DO) Hypotension arterial (Chronic) Pharyngitis (Chronic) Dyspnea on exertion (Chronic) TIO (obstructive sleep apnea) (Chronic) Unable to tolerate Pap therapy, discontinuing use History of ETOH abuse (Chronic) History of DVT of lower extremity (Chronic 02/11/17) Rt lower extremity pinky vein Acid-base disorder, mixed (Chronic) Insomnia (Chronic) Anxiety (Chronic) Hyperlipidemia (Chronic) Hypertension (Chronic) Daytime hypersomnia (Chronic) Heart failure with reduced ejection fraction (Chronic) Transaminitis (Chronic) COPD (chronic obstructive pulmonary disease) (Chronic) Hospital Course and Treatment Operations: None Procedures: None Summary of Care Provided: The patient is a 63 year old F was seen in the emergency room at [facility] after being brought in due to decreased mental status. Work-up in the emergency room included an EKG which showed a sinus rhythm at 51 with evidence of an old inferior myocardial infarction, CBC showed a normal white blood cell count, chemistries are unremarkable, liver function tests were elevated with alkaline phosphatase at 153, ALT 167, and AST at 296. Blood gases obtained on arrival showed a pH of 7.2 with a PCO2 of 109, patient's ammonia level was elevated at 60, chest x-ray showed no acute process. CT scan of the brain was performed which showed evidence of old infarctions but no acute infarctions. Patient initially was placed on BiPAP and given aerosol treatments and IV Solu-Medrol, she did not respond to treatment in the emergency room and subsequently had to be intubated in the emergency room. Patient was admitted to ICU, seen in consultation by critical care, and eventually extubated without incident. Liver ultrasound was performed due to her elevated transaminases, the ultrasound did not show any pathology. Patient's creatinine returned to normal with fluid administration. Patient was moved to [facility] and was seen by PT and OT, patient's condition stabilized. On 10/19/2018, patient was seen and examined: On examination she appeared in good health and spirits. Vital signs as documented. Skin warm and dry and without overt rashes. Neck without JVD. Lungs clear. Heart exam notable for regular rhythm, normal sounds and absence of murmurs, rubs or gallops. Abdomen unremarkable and without evidence of organomegaly, masses, or abdominal aortic enlargement. Extremities nonedematous. Neuro: Cranial nerves II through XII are grossly intact, no focal motor deficits were noted, sensation to light touch and pinprick is intact. Psych: Patient is alert and oriented x3, she does not appear anxious or depressed On 10/19/2018, patient was seen and examined and felt to be in stable condition for discharge home - Physical Exam Vital Signs Temp Pulse Resp BP Pulse Ox 98.0 F 72 18 149/88 H 100 10/19/18 13:33 10/19/18 13:33 10/19/18 13:33 10/19/18 13:33 10/19/18 13:33 Oxygen Flow Rate (L/min) 2 Oxygen Delivery Method Nasal Cannula Weight: 65.5 kg Body Mass Index (BMI) 25.7 Finger Stick Blood Glucose 101 Discharge Activity: Return to Normal Activity Weight Bearing Status: Full weight bearing Home Medications: Medications to take at Discharge Albuterol IH (ProAir) [Proair Hfa] 1 puff INHALATION Q4H PRN PRN #1 inhaler 09/17/17 aspirin 81 mg tablet,delayed release 81 mg PO DAILY #90 tab 03/02/18 Folic Acid 1 mg PO DAILY 09/14/18 Multivitamin with Minerals [Multiple Vitamin] 1 tab PO DAILY 09/14/18 Pantoprazole Sodium 40 mg PO QAM 09/14/18 Spironolactone 12.5 mg PO DAILY 09/14/18 Acetaminophen [Tylenol Tablet] 650 mg PO Q6H PRN PRN tablet 09/16/18 Ipratropium/Albuterol Sulfate [Duoneb] 3 ml INHALATION 4X/DAY #120 ampul.neb 09/16/18 carvedilol 12.5 mg tablet 12.5 mg PO BID #180 tab 10/18/18 Acetaminophen [Tylenol Tablet] 650 mg PO Q6H PRN PRN tablet 10/19/18 Carvedilol [Coreg (Beta Indy)] 12.5 mg PO BID tablet 10/19/18 Primary Care Physician: Glenn Ulloa MD [Primary Care Provider] - Please follow up with your Primary Care Physician in: in one week Please Follow Up With: Mike Duarte MD When: in 2 weeks Please Follow Up With: Glenn Ulloa MD When: 1 week Disposition: Home Minutes spent on discharge:: 32 Patient Condition:: Stable Medical Necessity - Tobacco Use Smoking Status: Former smoker Meaningful Use Info Meaningful Use Diagnoses (Choose all that apply): None applicable Code Visit Inpatient E&M: 83145 Disch Hosp
--- NOTE | 2018-10-24 16:02 | DS.PCM_ITS ---
Discharge Date and Diagnosis Date of Admission: 10/15/18 Date of Discharge: 10/19/18 - Primary Discharge Diagnosis #1 acute on chronic combined respiratory failure #2 chronic transaminase elevations-etiology unclear #3 obstructive sleep apnea-patient is noncompliant with treatment #4 history of PTSD #5 acute kidney injury #6 hypokalemia-corrected #7 elevated ammonia [id number] unclear #8 metabolic encephalopathy-etiology unclear #9 noncompliance with medical treatment - Secondary Discharge Diagnosis Chronic Problems (Last Updated 10/16/18 @ 11:24 by César Cagle DO) Hypotension arterial (Chronic) Pharyngitis (Chronic) Dyspnea on exertion (Chronic) ITO (obstructive sleep apnea) (Chronic) Unable to tolerate Pap therapy, discontinuing use History of ETOH abuse (Chronic) History of DVT of lower extremity (Chronic 02/11/17) Rt lower extremity pinky vein Acid-base disorder, mixed (Chronic) Insomnia (Chronic) Anxiety (Chronic) Hyperlipidemia (Chronic) Hypertension (Chronic) Daytime hypersomnia (Chronic) Heart failure with reduced ejection fraction (Chronic) Transaminitis (Chronic) COPD (chronic obstructive pulmonary disease) (Chronic) Hospital Course and Treatment Operations: None Procedures: None Summary of Care Provided: The patient is a 63 year old F was seen in the emergency room at [facility] after being brought in due to decreased mental status. Work- up in the emergency room included an EKG which showed a sinus rhythm at 51 with evidence of an old inferior myocardial infarction, CBC showed a normal white blood cell count, chemistries are unremarkable, liver function tests were elevated with alkaline phosphatase at 153, ALT 167, and AST at 296. Blood gases obtained on arrival showed a pH of 7.2 with a PCO2 of 109, patient's ammonia level was elevated at 60, chest x-ray showed no acute process. CT scan of the brain was performed which showed evidence of old infarctions but no acute infarctions. Patient initially was placed on BiPAP and given aerosol treatments and IV Solu-Medrol, she did not respond to treatment in the emergency room and subsequently had to be intubated in the emergency room. Patient was admitted to ICU, seen in consultation by critical care, and eventually extubated without incident. Liver ultrasound was performed due to her elevated transaminases, the ultrasound did not show any pathology. Patient's creatinine returned to normal with fluid administration. Patient was moved to [facility] and was seen by PT and OT, patient's condition stabilized. On 10/19/2018, patient was seen and examined: On examination she appeared in good health and spirits. Vital signs as documented. Skin warm and dry and without overt rashes. Neck without JVD. Lungs clear. Heart exam notable for regular rhythm, normal sounds and absence of murmurs, rubs or gallops. Abdomen unremarkable and without evidence of organomegaly, masses, or abdominal aortic enlargement. Extremities nonedematous. Neuro: Cranial nerves II through XII are grossly intact, no focal motor deficits were noted, sensation to light touch and pinprick is intact. Psych: Patient is alert and oriented x3, she does not appear anxious or depressed On 10/19/2018, patient was seen and examined and felt to be in stable condition for discharge home - Physical Exam Vital Signs Temp Pulse Resp BP Pulse Ox 98.0 F 72 18 149/88 H 100 10/19/18 13:33 10/19/18 13:33 10/19/18 13:33 10/19/18 13:33 10/19/18 13:33 Oxygen Flow Rate (L/min) 2 Oxygen Delivery Method Nasal Cannula Weight: 65.5 kg Body Mass Index (BMI) 25.7 Finger Stick Blood Glucose 101 Discharge Activity: Return to Normal Activity Weight Bearing Status: Full weight bearing Home Medications: Medications to take at Discharge Albuterol IH (ProAir) [Proair Hfa] 1 puff INHALATION Q4H PRN PRN #1 inhaler 09/17/17 aspirin 81 mg tablet,delayed release 81 mg PO DAILY #90 tab 03/02/18 Folic Acid 1 mg PO DAILY 09/14/18 Multivitamin with Minerals [Multiple Vitamin] 1 tab PO DAILY 09/14/18 Pantoprazole Sodium 40 mg PO QAM 09/14/18 Spironolactone 12.5 mg PO DAILY 09/14/18 Acetaminophen [Tylenol Tablet] 650 mg PO Q6H PRN PRN tablet 09/16/18 Ipratropium/Albuterol Sulfate [Duoneb] 3 ml INHALATION 4X/DAY #120 ampul.neb 09/16/18 carvedilol 12.5 mg tablet 12.5 mg PO BID #180 tab 10/18/18 Acetaminophen [Tylenol Tablet] 650 mg PO Q6H PRN PRN tablet 10/19/18 Carvedilol [Coreg (Beta Indy)] 12.5 mg PO BID tablet 10/19/18 Primary Care Physician: Glenn Ulloa MD [Primary Care Provider] - Please follow up with your Primary Care Physician in: in one week Please Follow Up With: Mike Duarte MD When: in 2 weeks Please Follow Up With: Glenn Ulloa MD When: 1 week Disposition: Home Minutes spent on discharge:: 32 Patient Condition:: Stable Medical Necessity - Tobacco Use Smoking Status: Former smoker Meaningful Use Info Meaningful Use Diagnoses (Choose all that apply): None applicable Code Visit Inpatient E&M: 49361 Disch Hosp
== END 2018-10-19 13:50 | disposition home or self-care (01) | DRG 208 ==
LOC: ED 15:21 → ICU 16:02 → MS3 10-18 14:18
PROVIDERS: Emergency Medicine; Internal Medicine Critical Care Medicine; Admitting Provider Internal Medicine; Emergency Provider Emergency Medicine; Family Provider Internal Medicine; PCP Internal Medicine; Visit Provider Internal Medicine
DX: J96.22 Acute and chronic respiratory failure with hypercapnia (principal); G93.41 Metabolic encephalopathy; N17.9 Acute kidney failure, unspecified; J44.1 Chronic obstructive pulmonary disease with (acute) exacerbation; J96.21 Acute and chronic respiratory failure with hypoxia; R79.89 Other specified abnormal findings of blood chemistry; G47.33 Obstructive sleep apnea (adult) (pediatric); E87.6 Hypokalemia; R74.0 Nonspecific elevation of levels of transaminase and lactic acid dehydrogenase [LDH]; Z99.81 Dependence on supplemental oxygen; Z87.891 Personal history of nicotine dependence; I25.2 Old myocardial infarction; Z86.73 Personal history of transient ischemic attack (TIA), and cerebral infarction without residual deficits; Z91.19 Patient's noncompliance with other medical treatment and regimen; Z86.718 Personal history of other venous thrombosis and embolism
CPT/HCPCS: 31500; 36415; 36569; 36600; 51702; 70450; 71045; 76705; 80048; 80053; 80320; 81001; 82140; 82550; 82803; 82962; 83690; 84478; 84484; 85025; 86705; 86709; 87040; 87086; 87340; 87633; 93005; 94002; 94003; 94640; 94660; 95831; 97162; 97165; 97530; 97802; 99251; 99285; J7030; A4216; G0463; G0480

== ENCOUNTER 2018-10-30 22:31 | Inpatient (IN) | payer MEDICARE, SELFPAY ==
[2018-10-26 13:24] VITALS: BMI 25.7
[2018-10-30 22:36] VITALS: BP 95/49; PULSE 79; RESP 18; TEMP 36.8; O2SAT 92; BMI 22.3
--- NOTE | 2018-10-30 23:00 | CT_ITS ---
HISTORY: ALTERED MENTAL STATUS, TOOK 1/2 AMBIEN AND PT IS VERY SLEEPY, HIGH CO2 LEVELS, INTUBATED, HX HEMORRAGIC CVA, CAD, HTN, OK, EMPHYSEMA EXAMINATION: CT Head or Brain W/O Contrast TECHNIQUE: Multiple axial images were obtained of the brain without intravenous contrast. A radiation dose optimization technique was used for this scan. IV Contrast dosage and agent: None. COMPARISON: 10/15/2018 FINDINGS: With comparison previous, no significant change. Normal ventricles. No hydrocephalus. Remote infarction with low density encephalomalacia involving the right occipital and posterior parietal regions bilaterally. No hemorrhage or acute infarct seen. No significant mass-effect. Negative posterior fossa. No suspicious extra-axial fluid collection. As visualized, the mastoids are clear. Mild mucosal thickening within the left maxillary sinus floor and left ethmoid partial opacification. CT/Brain/Head without Contrast IMPRESSION: 1. No hemorrhage or acute intracranial disease identified. 2. Bilateral remote cerebral infarcts. 3. Chronic paranasal sinus disease. Individualized dose optimization techniques were used for this CT. at 0145 Reported and signed by: Juancarlos Man MD Electronically Signed: Juancarlos Man, at 1:44 EDT Tel , Service support ,
--- NOTE | 2018-10-30 23:01 | EKG12_ITS ---
Test Reason : SOB Blood Pressure : / mmHG Vent. Rate : 088 BPM Atrial Rate : 088 BPM P-R Int : 124 ms QRS Dur : 074 ms QT Int : 370 ms P-R-T Axes : 074 069 079 degrees QTc Int : 447 ms Normal sinus rhythm Normal ECG Confirmed by RUSS MENDES, ANALY ([id number]), magazine editor NICOLE ARANGO ([id number]) on 11/01/2018 11:19:08 AM Referred By: ANUJ Confirmed By:ANALY SOLANO MD
--- NOTE | 2018-10-30 23:09 | ED.DCSUM_ITS ---
- ER Visit Summary Date of Service: 10/30/18 Chief Complaint: Confusion History of Present Illness: The patient is a 63 F who presents with confusion. This began acutely about 1/2 hours ago. She did take a half of an Ambien and shortly beforehand. She was calling for her and confused. The daughter is concerned that she has facial droop. She recently had an admission for similar symptoms and was admitted for acute hypercapnic respiratory failure. She has past he has BiPAP at home but the mask does not fit appropriately so she has not been using this. Family otherwise denies recent illness such as fevers complaining of any pain nausea vomiting. She had not been complaining of feeling short of breath. She has not had recent increased cough congestion and rhinorrhea. Physical Examination: Blood pressure 95/49 pulse ox 92% on 2 L Myosis but extraocular motion intact Heart regular rate and rhythm No respiratory distress I do not appreciate rales Abdomen soft nontender nondistended Extremities nontender Patient is lethargic with a GCS of 10, eyes 3, verbal 1, motor 6 she is nonverbal but does not appear to have focal or lateralizing deficits she has normal strength she will follow commands she does not have ataxia I do not appreciate any facial droop extraocular motions are intact Test Results: Initial ABG shows pH 7.1 with a PCO2 greater than 130. EKG shows normal sinus rhythm at a rate of 88. Labs notable for white count 12.2. Alcohol negative. Urine drug screen positive for benzodiazepines only. Ammonia 60. Initial chest x-ray was read as left lower lobe infiltrate. However repeat x-ray was read as normal and on my review of imagings I do not appreciate a clear infiltrate. Endotracheal tube is in good position on second chest x-ray. CT of the head shows no hemorrhage or acute disease, there are remote bilateral cerebral infarcts. Emergency Department Course and Treatment: On return of ABG with severe hypercapnia and the decision was made to intubate. Patient underwent RSI with etomidate and succinylcholine. She was easily intubated on the first attempt. There were significantly diminished breath sounds but fogging the tube and change in color capnography. Repeat x-ray did confirm adequate placement. Patient was started on propofol however she did develop some hypotension given that she still had some agitation we added on fentanyl and started IV fluids. Initial x-ray was read as an infiltrate however repeat x-ray was read as normal and I do not appreciate an obvious infiltrate on my review. I do believe her symptoms are explainable due to severe hypercapnia. Patient discussed with the hospitalist and admitted. Repeat ABG was significantly improved. Treatment Plan: [] Disposition: Admit Impression: Acute hypercapnic respiratory failure This note was generated with [email or web address] dictation software. It may contain incorrect words, spelling, and punctuation that were not noted in review of the chart prior to signing ED Disposition - Plan for ED Patient: Referrals: Glenn Ulloa MD [Primary Care Provider] -
--- NOTE | 2018-10-30 23:10 | RAD_ITS ---
STUDY: X-RAY CHEST REASON FOR EXAM: Female, 63 years old. Altered mental status TECHNIQUE: Portable chest COMPARISON: 10/15/2018 FINDINGS: There is new left lower lobe infiltrate. There is been removal of the endotracheal tube and orogastric tubes. There are COPD changes within the upper lobes. Normal size heart. Normal mediastinum and jacinto. Normal visualized pulmonary arteries. Normal visualized aortic arch and descending thoracic aorta. Normal visualized thoracic spine. Normal visualized ribs, clavicles, and shoulders. There is no demonstrated abnormality of the visualized soft tissue structures of the upper abdomen. RAD/Chest 1 View (Portable) IMPRESSION: New left lower lobe infiltrate, likely pneumonia which may be secondary to aspiration pneumonia COPD changes within the upper lobes Electronically Signed: Antelmo Aldridge, at 0:14 EDT Tel , Service support ,
[2018-10-30] MEDS: Etomidate 20 MG/10 ML Vial IV (23:24)
[2018-10-30 23:25] VITALS: BP 105/53; PULSE 76; RESP 16; O2SAT 80
[2018-10-30 23:29] LABS: Absolute Lymphocyte Count 2.62 X10^3/ul (0.83-4.51); Absolute Neutrophil Count 8.3 X10^3/uL (2.0-7.7); Basophil# 0.03 X10^3/uL; Basophil% 0.2 % (0-1); Eosinophil# 0.19 X10^3/uL; Eosinophils% 1.6 % (0-5); Hemoglobin 11.5 g/dl (12.0-15.0); Lymphocyte # 2.62 X10^3/ul (4.0); Lymphocyte % 21.5 % (19-41); Mean Corp Hgb Conc 29.5 g/gl (32-36); Mean Corpuscular Hgb 29.2 pg (27.0-32.0); Mean Platelet Vol. 9.7 fl (6.2-12.0); Monocyte# 0.91 X10^3/uL; Monocyte% 7.5 % (0-10); Neutrophil # 8.33 X10^3/uL (2.7-7.7); Neutrophil % 68.5 % (47-70); POSITIVE COUNT NO; POSITIVE DIFFERENTIAL NO; POSITIVE MORPHOLOGY NO; Platelet Count 229 K/mm3 (150-450); RBC Distribution Width CV 13.1 % (11.6-14.6); RBC Distribution Width SD 46.7 fl (35.1-43.9); Red Blood Count 3.94 M/mm3 (4.2-5.4); White Blood Count 12.2 K/mm3 (4.4-11.0)
[2018-10-30 23:30] VITALS: PULSE 80; PULSE 87; RESP 16; O2SAT 100
[2018-10-30 23:36] VITALS: BP 90/52; PULSE 84; RESP 18; O2SAT 100
[2018-10-30] MEDS: Succinylcholine Chloride 200 MG/10 ML Vial 100 MG IV (23:36)
--- NOTE | 2018-10-30 23:38 | ED.RN ---
PT BROUGHT TO ROOM 2, BLOOD GASES ARE CRITICAL, PT CHANGE IN LOC, UNABLE TO SUPPORT AIRWAY. 2324 20MG OF eTOMIDATE GIVEN IN R AC, iv INFILTRATED, NEW IV PLACED IN LEFT AC. PT SEDATED. 2326 100MG OF SUCCS GIVEN IN LEFT AC. BOTH GIVEN BY REENA MATSON INTUBATED WITH COLOR CHANGE AND BILATERAL BREATH SOUNDS.
[2018-10-30 23:42] LABS: ALB/GLOB Ratio 0.8 RATIO (0.9-2.4); AST(SGOT) 10 U/L (15-37); Alanine Aminotransfer ALT/SGPT 16 U/L (13-56); Albumin, Serum 3.3 g/dL (3.2-5.0); Alkaline Phosphatase 75 U/L (45-117); Anion Gap 0 (5-15); BUN 12 mg/dL (7-18); BUN/Creat Ratio 14.8 RATIO (10-20); Calcium,Total 8.5 mg/dL (8.5-10.1); Chloride 100 mmol/L (98-107); Creatinine, Serum 0.81 mg/dL (0.55-1.02); EST Glomerular Filtration Rate 76 mL/min (>60); Est Glom Filt Rate - Afr Amer 92 mL/min (>60); Estimated Creatinine Clearance 60.59 ml/min; Glucose 108 mg/dL (74-106); Potassium 4.6 mmol/L (3.5-5.1); Protein, Total 7.3 g/dL (6.4-8.2); Sodium Level 143 mmol/L (136-145)
[2018-10-30 23:43] VITALS: BP 106/68; PULSE 85; RESP 16; O2SAT 100
[2018-10-30 23:44] LABS: Bacteria 0 SEEN /hpf (None Seen); Mucous, Urine 0 SEEN /hpf (<or=2+); Red Blood Cells-Urine 0 SEEN /hpf (0-5); Squamous Epithelial Cells - UA 0 SEEN /hpf (5-10); White Blood Cells 0 SEEN /hpf (0-5)
--- NOTE | 2018-10-30 23:45 | RAD_ITS ---
STUDY: X-RAY CHEST REASON FOR EXAM: Female, 63 years old. ETT placement, OG tube placement TECHNIQUE: Single AP portable view of the chest. COMPARISON: None. FINDINGS: Endotracheal tube is seen its tip is 4 cm superior to the claude. An OG tube is seen its tip is below the diaphragm is in good position. The lungs are clear and expanded. There is no demonstrated pleural abnormality. Normal size heart. Normal mediastinum and jacinto. Normal visualized pulmonary arteries. Normal visualized aortic arch and descending thoracic aorta. Normal visualized thoracic spine. Normal visualized ribs, clavicles, and shoulders. There is no demonstrated abnormality of the visualized soft tissue structures of the upper abdomen. RAD/Chest 1 View (Portable) IMPRESSION: Normal x-ray examination of the chest. Electronically Signed: Peter De Guzman, at 0:16 EDT Tel , Service support ,
[2018-10-30 23:47] VITALS: BP 94/70
[2018-10-30 23:47] LABS: Color, Urine Yellow (Yellow); Glucose, Dipstick Normal (Normal); Ketone-Dipstick Negative (Negative); Leukocyte Esterase-Dipstick Negative /ul (Negative); Nitrite-Dipstick Negative (Negative); Occult Blood-Urine 10 /ul (Negative); Protein-Dipstick Negative (Negative); Urine Bilirubin Dipstick Negative (Negative); Urine Clarity Clear (Clear); Urine Urobilinogen Normal (Normal)
--- NOTE | 2018-10-30 23:54 | ED.RN ---
2353 50MCG FENTANYL GIVEN.
[2018-10-30 23:55] LABS: Vista UDS pH Range 6
[2018-10-30] MEDS: fentaNYL 100 MCG/2 ML Ampul 50 MCG IV (23:55)
[2018-10-30] MEDS: Ipratropium/Albuterol Sulfate 3 ML AMPUL.NEB INHALATION (23:55)
[2018-10-30] MEDS: Albuterol 2.5 MG/3 ML VIAL.NEB. INHALATION (23:55)
[2018-10-30 23:57] LABS: Alcohol, Blood (Medical)-Serum < 3.0 mg/dL
[2018-10-31] VITALS (43 sets, daily range): BP systolic 67–110; BP diastolic 33–70; PULSE 66–99; RESP 16–19; TEMP 37.4–38.3; O2SAT 30–100; BMI 24.0
[2018-10-31 00:13] LABS: Amphetamine Urine VISTA NEGATIVE (<1000 ng/mL); Barbiturate Urine VISTA NEGATIVE (< 200 ng/mL); Benzodiazepine Urine VISTA POSITIVE (< 200 ng/mL); Cocaine Urine VISTA NEGATIVE (< 300 ng/mL); Ecstacy Urine VISTA NEGATIVE (< 500 ng/mL); Methadone Urine VISTA NEGATIVE (< 300 ng/mL); PCP Urine VISTA NEGATIVE (< 25 ng/mL); THC Urine VISTA NEGATIVE (< 50 ng/mL)
[2018-10-31] MEDS: fentaNYL drip 100 ML 2.5 MCG CONT INF (00:18)
[2018-10-31 00:26] LABS: Allen Test POS; Blood Gas Specimen Type ART; O2 Delivery Device Nasal Can; PO2 147 mmHG (75-100); SITE L Radial; pCO2 > 130.0 mmHg (35-45)
--- NOTE | 2018-10-31 00:27 | CPS ---
critical values given to dr alfaro 10/30/18 @ 2401
--- NOTE | 2018-10-31 00:36 | ED.RN ---
FAMILY AT BEDSIDE. PT CONTINUES WITH HYPOTENSION, MD AWARE, WILL CONTINUE TO MONITOR. FENTANYL INCREASED PT WITH EYES OPEN, PULLING LEGS UP. EMOTIONAL SUPPORT GIVEN TO PT AND FAMILY.
--- NOTE | 2018-10-31 01:23 | ED.RN ---
Called CT for results, she will look.
[2018-10-31 01:26] LABS: Allen Test POS; Base Excess 11 mmol/L (-2 to +2); Bicarbonate 36.8 mmol/L (22-26); Blood Gas Specimen Type ART; FI02 45; Mode A-C; O2 Delivery Device Vent; PEEP 5; PO2 118 mmHG (75-100); RR 16; SITE R Radial; SO2 98 % (95-99); Total Carbon Dioxide 39 mmol/L; Vt 450; pCO2 65.9 mmHg (35-45); pH 7.35 (7.35-7.45)
--- NOTE | 2018-10-31 02:11 | PCM.HP.STD ---
Problem List (1) Acute and chronic respiratory failure with hypercapnia Status: Acute (2) Chronic obstructive pulmonary disease with acute exacerbation Status: Acute (3) TIO (obstructive sleep apnea) Status: Chronic (4) Hyperlipidemia Status: Chronic Qualifiers: (5) Hypertension Status: Chronic Qualifiers: History of Present Illness Date of Admission: 10/31/18 Chief Complaint: Altered mental status The patient is a 63 year old F with PMH as below who presents from home with altered mental status and confusion. At the time of my examination she was already sedated and intubated. Per the family she took her Ambien this evening and unfortunately is unable to wear her BiPAP because she says that the mask does not fit very well and they felt that she was very confused and lethargic and brought her into the ER. She had a similar admission earlier this month necessitating intubation and transferred to the ICU as well. In the ER she had an ABG with pH of 7.1 and a PCO2 greater than 130. She had a GCS of 10 on evaluation in the ER and there was therefore intubated. 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) Rt lower extremity pinky vein Acid-base disorder, mixed (Chronic) Insomnia (Chronic) Anxiety (Chronic) Hyperlipidemia (Chronic) Hypertension (Chronic) Daytime hypersomnia (Chronic) Heart failure with reduced ejection fraction (Chronic) Transaminitis (Chronic) COPD (chronic obstructive pulmonary disease) (Chronic) Medical History: Medical History (Last Reviewed 10/26/18 @ 13:16 by Lakisha Strickland) History of ETOH abuse (Chronic) Z87.898 History of stroke (Resolved) Onset Date: 02/03/17 Z86.73 Right occipital lobe and left posterior superior parietal lobe per CT;later determined as hemorrhagic per MRI developed NSTEMI shortly after but no intervention d/t GI bleed History of non-ST elevation myocardial infarction (NSTEMI) (Resolved) Onset Date: 02/03/17 I25.2 History of DVT of lower extremity (Chronic) Onset Date: 08/10/17 Z86.718 Rt lower extremity pinky vein History of pneumonia (Resolved) Z87.01 Hyperlipidemia (Chronic) E78.5 Hypertension (Chronic) I10 Hemorrhagic cerebrovascular accident (CVA) (Resolved) I61.9 Heart failure with reduced ejection fraction (Chronic) I50.20 Metabolic encephalopathy (Resolved) G93.41 Upper GI bleed (Resolved) K92.2 Transaminitis (Chronic) R74.0 Elevated serum creatinine (Acute) R79.89 COPD (chronic obstructive pulmonary disease) (Chronic) J44.9 PRES (posterior reversible encephalopathy syndrome) (Resolved) I67.83 Acute respiratory failure (Resolved) J96.00 Allergies tetanus and diphtheria toxoids [tetanus & diphtheria toxoids] Allergy (Verified 10/30/18 22:40) Hives Home Medications: Ambulatory Orders Medication Instructions Recorded Albuterol IH (ProAir) [Proair Hfa] 1 puff INHALATION Q4H PRN PRN #1 09/17/17 inhaler aspirin 81 mg tablet,delayed 81 mg PO DAILY #90 tab 03/02/18 release Folic Acid 1 mg PO DAILY 09/14/18 Multivitamin with Minerals 1 tab PO DAILY 09/14/18 [Multiple Vitamin] Pantoprazole Sodium 40 mg PO QAM 09/14/18 Spironolactone 12.5 mg PO DAILY 09/14/18 Acetaminophen [Tylenol Tablet] 650 mg PO Q6H PRN PRN tab 09/16/18 Ipratropium/Albuterol Sulfate 3 ml INHALATION 4X/DAY #120 09/16/18 [Duoneb] ampul.neb carvedilol 12.5 mg tablet 12.5 mg PO BID #180 tab 10/18/18 Acetaminophen [Tylenol Tablet] 650 mg PO Q6H PRN PRN tab 10/19/18 Carvedilol [Coreg (Beta Indy)] 12.5 mg PO BID tab 10/19/18 zolpidem 5 mg tablet 5 mg PO QHS PRN #10 tab 10/26/18 Surgical History: Surgical History (Last Reviewed 10/26/18 @ 13:16 by Lakisha Strickland) H/O: section (Resolved) Z98.891 History of lumpectomy (Resolved) Z98.890 History of cholecystectomy (Resolved) Z90.49 Hx of appendectomy Z90.49 Surgical History: cholecystectomy, - - Lumpectomy Smoking Status: Former smoker - *Family History Maternal Family History: Family History (Last Reviewed 10/26/18 @ 13:16 by Lakisha Strickland) Sister Cancer Father Cancer Mother Cancer History Items: Cancer - Lung Paternal Family History: Family History (Last Reviewed 10/26/18 @ 13:16 by Lakisha Strickland) Sister Cancer Father Cancer Mother Cancer History Items: Cancer - Lung Sibling Family History: Family History (Last Reviewed 10/26/18 @ 13:16 by Lakisha Strickland) Sister Cancer Father Cancer Mother Cancer History Items: Cancer - lung Review of Systems Unable to obtain accurate/complete ROS d/t: Sedation and intubation VTE Information - Inpt Only VTE Present on Admission: No - Physical Exam General: - - Intubated and sedated HEENT: Atraumatic, PERRLA, Normocephalic Oral: Dry Mucosa Neck: Supple, No JVD, Trachea Midline Lungs: Normal air movement, No wheeze, Diminished, - - Coarse breath sounds Cardiovascular: Regular rate, Regular Rhythm, Normal S1, Normal S2, No murmurs Abdomen: Soft, Non-Distended, No Hepato-splenomegaly Extremities: No edema, Capillary Refill Less than 3 Seconds Skin: No rashes, No breakdown Psych/Mental Status: - - Exam limited secondary to sedation and intubation Vital Signs Temp Pulse Resp BP Pulse Ox 98.2 F 81 16 70/53 L 100 10/30/18 22:36 10/31/18 01:22 10/31/18 01:22 10/31/18 01:22 10/31/18 01:22 Oxygen Flow Rate (L/min) 2 Oxygen Delivery Method Mechanical Ventilator Weight: 130 lb Body Mass Index (BMI) 22.3 Finger Stick Blood Glucose 101 Laboratory Tests Past 24 Hrs 10/30/18 10/30/18 10/30/18 23:10 23:10 23:10 WBC 12.2 H RBC 3.94 L Hgb 11.5 L Hct 39.0 MCV 99.0 MCH 29.2 MCHC 29.5 L RDW 13.1 RDW Differential 46.7 H Plt Count 229 MPV 9.7 Immature Gran % (Auto) 0.700 Neut % (Auto) 68.5 Lymph % (Auto) 21.5 Martin % (Auto) 7.5 Eos % (Auto) 1.6 Baso % (Auto) 0.2 Absolute Neuts (auto) 8.3 H Absolute Lymphs (auto) 2.62 Total Counted Not Reportable Specimen Type Sample Site pH Bicarbonate Actual POC Total CO2 Base Excess O2 Saturation O2 % ABG pCO2 ABG pO2 Royal Test Respiration Rate O2 Delivery Device Liter Flow Vent Mode Tidal Volume POC PEEP Blood Gas Notified Whom Sodium 143 Potassium 4.6 Chloride 100 Carbon Dioxide 43.0 H Anion Gap 0 L BUN 12 Creatinine 0.81 Estim Creat Clear Calc 60.59 Est GFR (MDRD) Af Amer 92 Est GFR (MDRD) Non-Af 76 BUN/Creatinine Ratio 14.8 Glucose 108 H Calcium 8.5 Total Bilirubin 0.20 AST 10 L ALT 16 Alkaline Phosphatase 75 Ammonia Total Protein 7.3 Albumin 3.3 Globulin 4.0 Albumin/Globulin Ratio 0.8 L Urine Color Urine Clarity Urine pH Ur Specific [place] Urine Protein Urine Glucose (UA) Urine Ketones Urine Occult Blood Urine Nitrite Urine Bilirubin Urine Urobilinogen Ur Leukocyte Esterase Urine RBC Urine WBC Ur Squamous Epith Cells Urine Bacteria Urine Mucus Urine Opiates Screen Urine Methadone Screen Ur Barbiturates Screen Ur Phencyclidine Scrn Ur Amphetamines Screen U Methamphetamin-MDMA U Benzodiazepines Scrn Urine Cocaine Screen U Cannabinoids Screen Ur Drug Screen Comment Ethyl Alcohol < 3.0 10/30/18 10/30/18 10/30/18 23:10 23:11 23:35 WBC RBC Hgb Hct MCV MCH MCHC RDW RDW Differential Plt Count MPV Immature Gran % (Auto) Neut % (Auto) Lymph % (Auto) Martin % (Auto) Eos % (Auto) Baso % (Auto) Absolute Neuts (auto) Absolute Lymphs (auto) Total Counted Specimen Type ART Sample Site L Radial pH 7.10 L* Bicarbonate Actual Pending POC Total CO2 Pending Base Excess Pending O2 Saturation Pending O2 % ABG pCO2 > 130.0 H* ABG pO2 147 H Royal Test POS Respiration Rate O2 Delivery Device Nasal Can Liter Flow 2.0 Vent Mode Tidal Volume POC PEEP Blood Gas Notified Whom ED Sodium Potassium Chloride Carbon Dioxide Anion Gap BUN Creatinine Estim Creat Clear Calc Est GFR (MDRD) Af Amer Est GFR (MDRD) Non-Af BUN/Creatinine Ratio Glucose Calcium Total Bilirubin AST ALT Alkaline Phosphatase Ammonia 60.0 H Total Protein Albumin Globulin Albumin/Globulin Ratio Urine Color Yellow Urine Clarity Clear Urine pH 6.0 Ur Specific [place] 1.010 Urine Protein Negative Urine Glucose (UA) Normal Urine Ketones Negative Urine Occult Blood 10 H Urine Nitrite Negative Urine Bilirubin Negative Urine Urobilinogen Normal Ur Leukocyte Esterase Negative Urine RBC 0 SEEN Urine WBC 0 SEEN Ur Squamous Epith Cells 0 SEEN Urine Bacteria 0 SEEN Urine Mucus 0 SEEN Urine Opiates Screen Urine Methadone Screen Ur Barbiturates Screen Ur Phencyclidine Scrn Ur Amphetamines Screen U Methamphetamin-MDMA U Benzodiazepines Scrn Urine Cocaine Screen U Cannabinoids Screen Ur Drug Screen Comment Ethyl Alcohol 10/30/18 10/31/18 23:35 01:23 WBC RBC Hgb Hct MCV MCH MCHC RDW RDW Differential Plt Count MPV Immature Gran % (Auto) Neut % (Auto) Lymph % (Auto) Martin % (Auto) Eos % (Auto) Baso % (Auto) Absolute Neuts (auto) Absolute Lymphs (auto) Total Counted Specimen Type ART Sample Site R Radial pH 7.35 Bicarbonate Actual 36.8 H POC Total CO2 39 Base Excess 11 H O2 Saturation 98 O2 % 45 ABG pCO2 65.9 H ABG pO2 118 H Royal Test POS Respiration Rate 16 O2 Delivery Device Vent Liter Flow Vent Mode A-C Tidal Volume 450 POC PEEP 5 Blood Gas Notified Whom ED Sodium Potassium Chloride Carbon Dioxide Anion Gap BUN Creatinine Estim Creat Clear Calc Est GFR (MDRD) Af Amer Est GFR (MDRD) Non-Af BUN/Creatinine Ratio Glucose Calcium Total Bilirubin AST ALT Alkaline Phosphatase Ammonia Total Protein Albumin Globulin Albumin/Globulin Ratio Urine Color Urine Clarity Urine pH Ur Specific [place] Urine Protein Urine Glucose (UA) Urine Ketones Urine Occult Blood Urine Nitrite Urine Bilirubin Urine Urobilinogen Ur Leukocyte Esterase Urine RBC Urine WBC Ur Squamous Epith Cells Urine Bacteria Urine Mucus Urine Opiates Screen NEGATIVE Urine Methadone Screen NEGATIVE Ur Barbiturates Screen NEGATIVE Ur Phencyclidine Scrn NEGATIVE Ur Amphetamines Screen NEGATIVE U Methamphetamin-MDMA NEGATIVE U Benzodiazepines Scrn POSITIVE H Urine Cocaine Screen NEGATIVE U Cannabinoids Screen NEGATIVE Ur Drug Screen Comment Ethyl Alcohol Assessment/Plan All Active Problems (Last Reviewed 10/26/18 @ 13:16 by Lakisha Strickland) Acute and chronic respiratory failure with hypercapnia (Acute) Chronic obstructive pulmonary disease with acute exacerbation (Acute) Nocturnal leg cramps (Resolved) History of stroke (Resolved 02/03/17) History of non-ST elevation myocardial infarction (NSTEMI) (Resolved 02/03/17) History of pneumonia (Resolved) H/O: section (Resolved) History of lumpectomy (Resolved) History of cholecystectomy (Resolved) Hemorrhagic cerebrovascular accident (CVA) (Resolved) Metabolic encephalopathy (Resolved) Upper GI bleed (Resolved) Elevated serum creatinine (Acute) PRES (posterior reversible encephalopathy syndrome) (Resolved) Acute respiratory failure (Resolved) 1. Acute hypercapnic respiratory failure/TIO/COPD/respiratory acidosis -Secondary to her obstructive sleep apnea and her inability to wear the BiPAP to the ill fitting mask as well as the Ambien -After intubation her pH increased from7.1 to 7.35 -We will transfer to ICU, however in the ER when they started on propofol her pressures dropped therefore we will transition her to fentanyl and Precedex -Continue with bronchodilators 2. Chronic systolic heart failure/CAD status post non-STEMI/HTN/HLD -She had an echo in September 2018 with an EF of 40 to 45% stage I diastolic dysfunction and moderate global hypokinesis of left ventricle -Once her blood pressure is stable off the propofol and on the Precedex, can reinstitute Coreg therapy and Aldactone -Continue with aspirin 3. GERD -Stable -Continue with PPI when taking p.o. DVT: Lovenox Code Visit Inpatient E&M: 88306 Init Hosp L3
[2018-10-31 03:10] LABS: Absolute Lymphocyte Count 1.65 X10^3/ul (0.83-4.51); Absolute Neutrophil Count 6.5 X10^3/uL (2.0-7.7); Basophil# 0.02 X10^3/uL; Basophil% 0.2 % (0-1); Eosinophil# 0.11 X10^3/uL; Eosinophils% 1.2 % (0-5); Hematocrit 31.7 % (37-47); Hemoglobin 9.4 g/dl (12.0-15.0); Lymphocyte # 1.65 X10^3/ul (4.0); Lymphocyte % 18.7 % (19-41); Mean Corp Hgb Conc 29.7 g/gl (32-36); Mean Corpuscular Hgb 28.9 pg (27.0-32.0); Mean Corpuscular Volume 97.5 fL (81-99); Mean Platelet Vol. 9.2 fl (6.2-12.0); Monocyte# 0.56 X10^3/uL; Monocyte% 6.3 % (0-10); Neutrophil # 6.48 X10^3/uL (2.7-7.7); Neutrophil % 73.5 % (47-70); Platelet Count 180 K/mm3 (150-450); RBC Distribution Width CV 13.4 % (11.6-14.6); RBC Distribution Width SD 47.5 fl (35.1-43.9); Red Blood Count 3.25 M/mm3 (4.2-5.4); White Blood Count 8.8 K/mm3 (4.4-11.0)
[2018-10-31] MEDS: 0.9% Normal Saline 1,000 ML 100 ML IV ×3 (03:14→14:08)
[2018-10-31 03:17] LABS: POSITIVE COUNT NO; POSITIVE DIFFERENTIAL NO; POSITIVE MORPHOLOGY NO
[2018-10-31 03:23] LABS: Anion Gap 2 (5-15); BUN 13 mg/dL (7-18); BUN/Creat Ratio 15.2 RATIO (10-20); Calcium,Total 7.6 mg/dL (8.5-10.1); Chloride 108 mmol/L (98-107); Creatinine, Serum 0.86 mg/dL (0.55-1.02); EST Glomerular Filtration Rate 71 mL/min (>60); Est Glom Filt Rate - Afr Amer 86 mL/min (>60); Estimated Creatinine Clearance 57.07 ml/min; Glucose 88 mg/dL (74-106); Potassium 4.6 mmol/L (3.5-5.1); Sodium Level 146 mmol/L (136-145)
--- NOTE | 2018-10-31 06:41 | PCM.CON.CC ---
Problem List (1) Acute and chronic respiratory failure with hypercapnia Status: Acute (2) Chronic obstructive pulmonary disease with acute exacerbation Status: Acute (3) Nocturnal leg cramps Status: Resolved (4) TIO (obstructive sleep apnea) Status: Chronic (5) History of ETOH abuse Status: Chronic (6) History of stroke Status: Resolved Comment: Right occipital lobe and left posterior superior parietal lobe per CT;later determined as hemorrhagic per MRI developed NSTEMI shortly after but no intervention d/t GI bleed (7) History of non-ST elevation myocardial infarction (NSTEMI) Status: Resolved (8) History of DVT of lower extremity Status: Chronic Comment: Rt lower extremity pinky vein (9) Anxiety Status: Chronic (10) Hyperlipidemia Status: Chronic Qualifiers: (11) Hypertension Status: Chronic Qualifiers: (12) History of lumpectomy Status: Resolved (13) History of cholecystectomy Status: Resolved (14) Heart failure with reduced ejection fraction Status: Chronic (15) COPD (chronic obstructive pulmonary disease) Status: Chronic Qualifiers: COPD type: unspecified COPD Qualified Code(s): J44.9 - Chronic obstructive pulmonary disease, unspecified Reason for Consult Date of Consultation: 10/31/18 Reason for Consultation: Respiratory failure History of Present Illness: The patient is a 63 year old F, with past medical history listed below and well-known to me from previous admissions, who presented to [facility] on 10/30/2018 secondary to acute onset of confusion. Patient reportedly had taken some Ambien and then refused to use her BiPAP. Patient became progressively less responsive and there was some concern for the onset of her facial droop. Family had reportedly denied any constitutional symptoms such as fever, chills, nausea or vomiting. Patient reportedly had not had increased cough or rhinorrhea. On presentation to the emergency room, patient was noted to be 95/49 and 92% on 2 L nasal cannula. Patient was noted to have a decreased GCS of 10. Initial ABG showed a pH of 7.1 with a PCO2 greater than 130 and a slightly elevated white blood cell count. Patient was also noted to have an ammonia of 60. CT of the head was negative. Patient was admitted to the intensive care unit following intubation and was placed on Precedex and fentanyl for sedation. Overnight, patient has not had any significant issues. Patient is oxygenating well. Patient did have a T-max of 37.7 ?C. No family is at the bedside at this time. Patient will open her eyes, but is not following simple commands. Unable to obtain a further review of systems. 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) Rt lower extremity pinky vein Acid-base disorder, mixed (Chronic) Insomnia (Chronic) Anxiety (Chronic) Hyperlipidemia (Chronic) Hypertension (Chronic) Daytime hypersomnia (Chronic) Heart failure with reduced ejection fraction (Chronic) Transaminitis (Chronic) COPD (chronic obstructive pulmonary disease) (Chronic) Medical History: Medical History (Last Reviewed 10/26/18 @ 13:16 by Lakisha Strickland) History of ETOH abuse (Chronic) Z87.898 History of stroke (Resolved) Onset Date: 02/03/17 Z86.73 Right occipital lobe and left posterior superior parietal lobe per CT;later determined as hemorrhagic per MRI developed NSTEMI shortly after but no intervention d/t GI bleed History of non-ST elevation myocardial infarction (NSTEMI) (Resolved) Onset Date: 02/03/17 I25.2 History of DVT of lower extremity (Chronic) Onset Date: 02/11/17 Z86.718 Rt lower extremity pinky vein History of pneumonia (Resolved) Z87.01 Hyperlipidemia (Chronic) E78.5 Hypertension (Chronic) I10 Hemorrhagic cerebrovascular accident (CVA) (Resolved) I61.9 Heart failure with reduced ejection fraction (Chronic) I50.20 Metabolic encephalopathy (Resolved) G93.41 Upper GI bleed (Resolved) K92.2 Transaminitis (Chronic) R74.0 Elevated serum creatinine (Acute) R79.89 COPD (chronic obstructive pulmonary disease) (Chronic) J44.9 PRES (posterior reversible encephalopathy syndrome) (Resolved) I67.83 Acute respiratory failure (Resolved) J96.00 Allergies tetanus and diphtheria toxoids [tetanus & diphtheria toxoids] Allergy (Verified 10/30/18 22:40) Hives Home Medications: Ambulatory Orders Medication Instructions Recorded Albuterol IH (ProAir) [Proair Hfa] 1 puff INHALATION Q4H PRN PRN #1 09/17/17 inhaler aspirin 81 mg tablet,delayed 81 mg PO DAILY #90 tab 03/02/18 release Folic Acid 1 mg PO DAILY 09/14/18 Multivitamin with Minerals 1 tab PO DAILY 09/14/18 [Multiple Vitamin] Pantoprazole Sodium 40 mg PO QAM 09/14/18 Spironolactone 12.5 mg PO DAILY 09/14/18 Acetaminophen [Tylenol Tablet] 650 mg PO Q6H PRN PRN tab 09/16/18 Ipratropium/Albuterol Sulfate 3 ml INHALATION 4X/DAY #120 09/16/18 [Duoneb] ampul.neb carvedilol 12.5 mg tablet 12.5 mg PO BID #180 tab 10/18/18 Acetaminophen [Tylenol Tablet] 650 mg PO Q6H PRN PRN tab 10/19/18 Carvedilol [Coreg (Beta Indy)] 12.5 mg PO BID tab 10/19/18 zolpidem 5 mg tablet 5 mg PO QHS PRN #10 tab 10/26/18 Surgical History: Surgical History (Last Reviewed 10/26/18 @ 13:16 by Lakisha Strickland) H/O: section (Resolved) Z98.891 History of lumpectomy (Resolved) Z98.890 History of cholecystectomy (Resolved) Z90.49 Hx of appendectomy Z90.49 Surgical History: cholecystectomy, - - Lumpectomy Smoking Status: Former smoker - *Family History Maternal Family History: Family History (Last Reviewed 10/26/18 @ 13:16 by Lakisha Strickland) Sister Cancer Father Cancer Mother Cancer History Items: Cancer - Lung Paternal Family History: Family History (Last Reviewed 10/26/18 @ 13:16 by Lakisha Strickland) Sister Cancer Father Cancer Mother Cancer History Items: Cancer - Lung Sibling Family History: Family History (Last Reviewed 10/26/18 @ 13:16 by Lakisha Strickland) Sister Cancer Father Cancer Mother Cancer History Items: Cancer - lung Review of Systems Unable to obtain accurate/complete ROS d/t: See HPI Objective: Chest x-ray was personally reviewed. No clear infiltrate is appreciated. Support devices are in appropriate position. - Physical Exam General: No apparent distress, - - Intubated and sedated. Good vent synchrony. Appears older than stated age. HEENT: Atraumatic, PERRLA, EOMI, Normocephalic, - - No scleral icterus or injection noted. Oral: Moist Mucosa, No Gingival or Mucosal Lesions/ Ulcerations Neck: Supple, No JVD, No Nodes, Trachea Midline Lungs: No rhonchi, No wheeze, No rales, Diminished, - - Symmetric expansion. No dullness to percussion. Cardiovascular: Regular rate, Regular Rhythm, Normal S1, Normal S2, No murmurs, No rub noted, No Gallop Abdomen: Bowel Sounds Present, Soft, Non Tender, Non-Distended Extremities: No cyanosis, No edema, Capillary Refill Less than 3 Seconds, Clubbing Skin: No rashes, No breakdown Musculoskeletal: No Tenderness to Palpation of Joints or Extremities Lymphatic: No Cervical, Supraclavicular, or Inguinal Adenopathy Neurological: Cranial nerves II-XII grossly intact, Neuro grossly intact, Motor Exam 5/5 strength throughout Psych/Mental Status: Flat Affect Vital Signs Temp Pulse Resp BP Pulse Ox 37.8 C H 73 16 86/67 L 100 10/31/18 06:00 10/31/18 06:00 10/31/18 06:00 10/31/18 06:00 10/31/18 06:00 Oxygen Flow Rate (L/min) 2 Oxygen Delivery Method Mechanical Ventilator Weight: 63.8 kg Body Mass Index (BMI) 24.0 Finger Stick Blood Glucose 101 Intake and Output for Last 24 Hours 10/29/18 10/30/18 10/31/18 23:59 23:59 23:59 Intake Total 1118 / 1118 Output Total 300 / 300 Balance 818 / 818 Laboratory Tests Past 24 Hrs 10/30/18 10/30/18 10/30/18 23:10 23:10 23:10 WBC 12.2 H RBC 3.94 L Hgb 11.5 L Hct 39.0 MCV 99.0 MCH 29.2 MCHC 29.5 L RDW 13.1 RDW Differential 46.7 H Plt Count 229 MPV 9.7 Immature Gran % (Auto) 0.700 Neut % (Auto) 68.5 Lymph % (Auto) 21.5 [place] % (Auto) 7.5 Eos % (Auto) 1.6 Baso % (Auto) 0.2 Absolute Neuts (auto) 8.3 H Absolute Lymphs (auto) 2.62 Total Counted Not Reportable Specimen Type Sample Site pH Bicarbonate Actual POC Total CO2 Base Excess O2 Saturation O2 % ABG pCO2 ABG pO2 Royal Test Respiration Rate O2 Delivery Device Liter Flow Vent Mode Tidal Volume POC PEEP Blood Gas Notified Whom Sodium 143 Potassium 4.6 Chloride 100 Carbon Dioxide 43.0 H Anion Gap 0 L BUN 12 Creatinine 0.81 Estim Creat Clear Calc 60.59 Est GFR (MDRD) Af Amer 92 Est GFR (MDRD) Non-Af 76 BUN/Creatinine Ratio 14.8 Glucose 108 H Calcium 8.5 Total Bilirubin 0.20 AST 10 L ALT 16 Alkaline Phosphatase 75 Ammonia Total Protein 7.3 Albumin 3.3 Globulin 4.0 Albumin/Globulin Ratio 0.8 L Urine Color Urine Clarity Urine pH Ur Specific [place] Urine Protein Urine Glucose (UA) Urine Ketones Urine Occult Blood Urine Nitrite Urine Bilirubin Urine Urobilinogen Ur Leukocyte Esterase Urine RBC Urine WBC Ur Squamous Epith Cells Urine Bacteria Urine Mucus Urine Opiates Screen Urine Methadone Screen Ur Barbiturates Screen Ur Phencyclidine Scrn Ur Amphetamines Screen U Methamphetamin-MDMA U Benzodiazepines Scrn Urine Cocaine Screen U Cannabinoids Screen Ur Drug Screen Comment Ethyl Alcohol < 3.0 10/30/18 10/30/18 10/30/18 23:10 23:11 23:35 WBC RBC Hgb Hct MCV MCH MCHC RDW RDW Differential Plt Count MPV Immature Gran % (Auto) Neut % (Auto) Lymph % (Auto) [place] % (Auto) Eos % (Auto) Baso % (Auto) Absolute Neuts (auto) Absolute Lymphs (auto) Total Counted Specimen Type ART Sample Site L Radial pH 7.10 L* Bicarbonate Actual TNP POC Total CO2 TNP Base Excess TNP O2 Saturation TNP O2 % ABG pCO2 > 130.0 H* ABG pO2 147 H Royal Test POS Respiration Rate O2 Delivery Device Nasal Can Liter Flow 2.0 Vent Mode Tidal Volume POC PEEP Blood Gas Notified Whom ED MD Sodium Potassium Chloride Carbon Dioxide Anion Gap BUN Creatinine Estim Creat Clear Calc Est GFR (MDRD) Af Amer Est GFR (MDRD) Non-Af BUN/Creatinine Ratio Glucose Calcium Total Bilirubin AST ALT Alkaline Phosphatase Ammonia 60.0 H Total Protein Albumin Globulin Albumin/Globulin Ratio Urine Color Yellow Urine Clarity Clear Urine pH 6.0 Ur Specific [place] 1.010 Urine Protein Negative Urine Glucose (UA) Normal Urine Ketones Negative Urine Occult Blood 10 H Urine Nitrite Negative Urine Bilirubin Negative Urine Urobilinogen Normal Ur Leukocyte Esterase Negative Urine RBC 0 SEEN Urine WBC 0 SEEN Ur Squamous Epith Cells 0 SEEN Urine Bacteria 0 SEEN Urine Mucus 0 SEEN Urine Opiates Screen Urine Methadone Screen Ur Barbiturates Screen Ur Phencyclidine Scrn Ur Amphetamines Screen U Methamphetamin-MDMA U Benzodiazepines Scrn Urine Cocaine Screen U Cannabinoids Screen Ur Drug Screen Comment Ethyl Alcohol 10/30/18 10/31/18 10/31/18 23:35 01:23 03:00 WBC 8.8 RBC 3.25 L Hgb 9.4 L Hct 31.7 L MCV 97.5 MCH 28.9 MCHC 29.7 L RDW 13.4 RDW Differential 47.5 H Plt Count 180 MPV 9.2 Immature Gran % (Auto) 0.100 Neut % (Auto) 73.5 H Lymph % (Auto) 18.7 L [place] % (Auto) 6.3 Eos % (Auto) 1.2 Baso % (Auto) 0.2 Absolute Neuts (auto) 6.5 Absolute Lymphs (auto) 1.65 Total Counted Not Reportable Specimen Type ART Sample Site R Radial pH 7.35 Bicarbonate Actual 36.8 H POC Total CO2 39 Base Excess 11 H O2 Saturation 98 O2 % 45 ABG pCO2 65.9 H ABG pO2 118 H Royal Test POS Respiration Rate 16 O2 Delivery Device Vent Liter Flow Vent Mode A-C Tidal Volume 450 POC PEEP 5 Blood Gas Notified Whom ED Sodium Potassium Chloride Carbon Dioxide Anion Gap BUN Creatinine Estim Creat Clear Calc Est GFR (MDRD) Af Amer Est GFR (MDRD) Non-Af BUN/Creatinine Ratio Glucose Calcium Total Bilirubin AST ALT Alkaline Phosphatase Ammonia Total Protein Albumin Globulin Albumin/Globulin Ratio Urine Color Urine Clarity Urine pH Ur Specific [place] Urine Protein Urine Glucose (UA) Urine Ketones Urine Occult Blood Urine Nitrite Urine Bilirubin Urine Urobilinogen Ur Leukocyte Esterase Urine RBC Urine WBC Ur Squamous Epith Cells Urine Bacteria Urine Mucus Urine Opiates Screen NEGATIVE Urine Methadone Screen NEGATIVE Ur Barbiturates Screen NEGATIVE Ur Phencyclidine Scrn NEGATIVE Ur Amphetamines Screen NEGATIVE U Methamphetamin-MDMA NEGATIVE U Benzodiazepines Scrn POSITIVE H Urine Cocaine Screen NEGATIVE U Cannabinoids Screen NEGATIVE Ur Drug Screen Comment Ethyl Alcohol 10/31/18 03:00 WBC RBC Hgb Hct MCV MCH MCHC RDW RDW Differential Plt Count MPV Immature Gran % (Auto) Neut % (Auto) Lymph % (Auto) [place] % (Auto) Eos % (Auto) Baso % (Auto) Absolute Neuts (auto) Absolute Lymphs (auto) Total Counted Specimen Type Sample Site pH Bicarbonate Actual POC Total CO2 Base Excess O2 Saturation O2 % ABG pCO2 ABG pO2 Royal Test Respiration Rate O2 Delivery Device Liter Flow Vent Mode Tidal Volume POC PEEP Blood Gas Notified Whom Sodium 146 H Potassium 4.6 Chloride 108 H Carbon Dioxide 36.0 H Anion Gap 2 L BUN 13 Creatinine 0.86 Estim Creat Clear Calc 57.07 Est GFR (MDRD) Af Amer 86 Est GFR (MDRD) Non-Af 71 BUN/Creatinine Ratio 15.2 Glucose 88 Calcium 7.6 L Total Bilirubin AST ALT Alkaline Phosphatase Ammonia Total Protein Albumin Globulin Albumin/Globulin Ratio Urine Color Urine Clarity Urine pH Ur Specific [place] Urine Protein Urine Glucose (UA) Urine Ketones Urine Occult Blood Urine Nitrite Urine Bilirubin Urine Urobilinogen Ur Leukocyte Esterase Urine RBC Urine WBC Ur Squamous Epith Cells Urine Bacteria Urine Mucus Urine Opiates Screen Urine Methadone Screen Ur Barbiturates Screen Ur Phencyclidine Scrn Ur Amphetamines Screen U Methamphetamin-MDMA U Benzodiazepines Scrn Urine Cocaine Screen U Cannabinoids Screen Ur Drug Screen Comment Ethyl Alcohol Clinical Impression(s) from Imaging Studies Brain CT 10/30/18 23:00 IMPRESSION: 1. No hemorrhage or acute intracranial disease identified. 2. Bilateral remote cerebral infarcts. 3. Chronic paranasal sinus disease. Individualized dose optimization techniques were used for this CT. at 0145 Reported and signed by: Juancarlos Man MD Electronically Signed: Juancarlos Man, at 1:44 EDT Tel , Service support , Chest X-Ray 10/30/18 23:10 IMPRESSION: New left lower lobe infiltrate, likely pneumonia which may be secondary to aspiration pneumonia COPD changes within the upper lobes Electronically Signed: Antelmo Aldridge, at 0:14 EDT Tel , Service support , Chest X-Ray 10/30/18 23:45 IMPRESSION: Normal x-ray examination of the chest. Electronically Signed: Peter De Guzman, at 0:16 EDT Tel , Service support , Assessment/Plan RECOMMENDATIONS: 1. Continue Precedex, fentanyl and bronchodilators 2. Unclear if steroids are needed 3. Obtain sputum culture, hold on antibiotics for now 4. Discussed with family about goals of therapy 5. Okay to give dose of lactulose IMPRESSIONS: 1. Acute on chronic combined respiratory failure secondary to noncompliance Patient with multiple similar type of admissions over the last 6 months. Patient does respond to positive pressure ventilation, but following extubation has refused to continue BiPAP therapy despite multiple conversations about his necessity to deal with carbon dioxide. This was likely exacerbated by the use of Ambien. Patient does not have a clear infiltrate on chest x-ray that I can tell. Will obtain a sputum culture. Patient has had fevers previously on Precedex therapy and currently does not have a leukocytosis. Spontaneous breathing and awakening trials tomorrow. 2. Chronic systolic congestive heart failure/coronary artery disease/hypertension/hyperlipidemia Patient appears to be at her baseline at this time. Patient did have a recent echocardiogram showing an EF of 40 to 45% with stage I diastolic dysfunction and moderate global hypokinesis of the left ventricle. Patient is on medical therapy at this time. Okay to continue from my perspective. 3. CODE STATUS Patient continues to ask for aggressive measures despite noncompliance with noninvasive therapy to avoid future complications. Will discuss with patient's family at the bedside. Hospice measures are likely appropriate. 4. GERD/history of noncompliance/multiple surgeries/recurrent admissions Complicates care, management, recovery and prognosis. Okay to continue with PPI. TIME: 33 minutes critical care time spent addressing patient's acute on chronic respiratory failure, congestive heart failure, review of all data and collaboration with care team (5:45 AM to 6:45 AM) Code Visit 9xxxx: [id number] Critical care first hour
--- NOTE | 2018-10-31 08:06 | PCM.PN.HOSP ---
Subjective: The patient has been admitted 3 times since September 2018 for acute on chronic hypercapnic hypoxic, and respiratory failure secondary to noncompliance to BiPAP, COPD exacerbation and sedation. This time, patient took Ambien and very confused in ED. There was also concern of facial droop. She did not had increasing cough, congestion or URI symptoms. She was intubated in ED. She was just discharged on 10/24/18. Vitals/I&O's: Vital Signs Temp Pulse Resp BP Pulse Ox 100.1 F H 70 16 86/67 L 100 10/31/18 06:00 10/31/18 07:23 10/31/18 06:30 10/31/18 06:00 10/31/18 06:30 Oxygen Flow Rate (L/min) 2 Oxygen Delivery Method Mechanical Ventilator Weight: 140 lb 10.479 oz Body Mass Index (BMI) 24.0 Finger Stick Blood Glucose 101 Intake and Output for Last 24 Hours 10/29/18 10/30/18 10/31/18 23:59 23:59 23:59 Intake Total 1118 / 1118 Output Total 300 / 300 Balance 818 / 818 General: - - Currently intubated and sedated on Precedex drip and fentanyl. HEENT: Atraumatic, PERRLA, EOMI, Normocephalic Neck: Supple Lungs: No rhonchi, No wheeze, No rales, Diminished Cardiovascular: Regular rate, Regular Rhythm, Normal S1, Normal S2, No murmurs Abdomen: Bowel Sounds Present, Non Tender, Non-Distended, - - Has Fortune catheter Extremities: No edema, Capillary Refill Less than 3 Seconds Skin: No rashes, No breakdown Musculoskeletal: Arthritic Changes Lymphatic: No Cervical, Supraclavicular, or Inguinal Adenopathy Neurological: Cranial nerves II-XII grossly intact Laboratory Results 10/30/18 23:10: WBC 12.2 H, RBC 3.94 L, Hgb 11.5 L, Hct 39.0, MCV 99.0, MCH 29.2, MCHC 29.5 L, RDW 13.1, RDW Differential 46.7 H, Plt Count 229, MPV 9.7, Immature Gran % (Auto) 0.700, Neut % (Auto) 68.5, Lymph % (Auto) 21.5, [place] % (Auto) 7.5, Eos % (Auto) 1.6, Baso % (Auto) 0.2, Absolute Neuts (auto) 8.3 H, Absolute Lymphs (auto) 2.62, Total Counted Not Reportable 10/30/18 23:10: Sodium 143, Potassium 4.6, Chloride 100, Carbon Dioxide 43.0 H, Anion Gap 0 L, BUN 12, Creatinine 0.81, Estim Creat Clear Calc 60.59, Est GFR (MDRD) Af Amer 92, Est GFR (MDRD) Non-Af 76, BUN/Creatinine Ratio 14.8, Glucose 108 H, Calcium 8.5, Total Bilirubin 0.20, AST 10 L, ALT 16, Alkaline Phosphatase 75, Total Protein 7.3, Albumin 3.3, Globulin 4.0, Albumin/Globulin Ratio 0.8 L 10/30/18 23:10: Ethyl Alcohol < 3.0 10/30/18 23:10: Ammonia 60.0 H 10/30/18 23:11: Specimen Type ART, Sample Site L Radial, pH 7.10 L*, Bicarbonate Actual TNP, POC Total CO2 TNP, Base Excess TNP, O2 Saturation TNP, ABG pCO2 > 130.0 H*, ABG pO2 147 H, Royal Test POS, O2 Delivery Device Nasal Can, Liter Flow 2.0, Blood Gas Notified Whom ED 10/30/18 23:35: Urine Color Yellow, Urine Clarity Clear, Urine pH 6.0, Ur Specific [place] 1.010, Urine Protein Negative, Urine Glucose (UA) Normal, Urine Ketones Negative, Urine Occult Blood 10 H, Urine Nitrite Negative, Urine Bilirubin Negative, Urine Urobilinogen Normal, Ur Leukocyte Esterase Negative, Urine RBC 0 SEEN, Urine WBC 0 SEEN, Ur Squamous Epith Cells 0 SEEN, Urine Bacteria 0 SEEN, Urine Mucus 0 SEEN 10/30/18 23:35: Urine Opiates Screen NEGATIVE, Urine Methadone Screen NEGATIVE, Ur Barbiturates Screen NEGATIVE, Ur Phencyclidine Scrn NEGATIVE, Ur Amphetamines Screen NEGATIVE, U Methamphetamin-MDMA NEGATIVE, U Benzodiazepines Scrn POSITIVE H, Urine Cocaine Screen NEGATIVE, U Cannabinoids Screen NEGATIVE, Ur Drug Screen Comment 10/31/18 01:23: Specimen Type ART, Sample Site R Radial, pH 7.35, Bicarbonate Actual 36.8 H, POC Total CO2 39, Base Excess 11 H, O2 Saturation 98, O2 % 45, ABG pCO2 65.9 H, ABG pO2 118 H, Royal Test POS, Respiration Rate 16, O2 Delivery Device Vent, Vent Mode A-C, Tidal Volume 450, POC PEEP 5, Blood Gas Notified Whom ED 10/31/18 03:00: WBC 8.8, RBC 3.25 L, Hgb 9.4 L, Hct 31.7 L, MCV 97.5, MCH 28.9, MCHC 29.7 L, RDW 13.4, RDW Differential 47.5 H, Plt Count 180, MPV 9.2, Immature Gran % (Auto) 0.100, Neut % (Auto) 73.5 H, Lymph % (Auto) 18.7 L, [place] % (Auto) 6.3, Eos % (Auto) 1.2, Baso % (Auto) 0.2, Absolute Neuts (auto) 6.5, Absolute Lymphs (auto) 1.65, Total Counted Not Reportable 10/31/18 03:00: Sodium 146 H, Potassium 4.6, Chloride 108 H, Carbon Dioxide 36.0 H, Anion Gap 2 L, BUN 13, Creatinine 0.86, Estim Creat Clear Calc 57.07, Est GFR (MDRD) Af Amer 86, Est GFR (MDRD) Non-Af 71, BUN/Creatinine Ratio 15.2, Glucose 88, Calcium 7.6 L Current Medications Chlorhexidine Gluconate () 15 ml PO BID [facility] Enoxaparin Sodium (Lovenox) 40 mg SC DAILY@1000 WALTER Sodium Chloride () 1,000 mls @ 100 mls/hr IV .Q10H [facility] Last Admin: 10/31/18 04:33 Dose: 100 mls/hr Dexmedetomidine HCl 400 mcg/ (Sodium Chloride) 100 mls @ 7.37 mls/hr IV .[id number] [facility] Last Admin: 10/31/18 03:23 Dose: 7.37 mls/hr Famotidine 20 mg/ Sodium (Chloride) 10 mls @ 300 mls/hr IV Q24 WALTER Fentanyl () 100 mls @ 2.5 mls/hr IV .Q40H [facility] Sodium Chloride () 250 mls @ 15 mls/hr IV .[id number] PRN PRN Reason: SALINE FLUSH Magnesium Hydroxide (Milk Of Magnesia) 30 ml PO DAILY PRN PRN PRN Reason: Constipation Sodium Chloride () 5 - 15 ml IV UD PRN PRN Reason: SALINE FLUSH Medical Necessity - Tobacco Use Smoking Status: Former smoker Assessment/Plan All Active Problems (Last Reviewed 10/26/18 @ 13:16 by Lakisha Strickland) Acute and chronic respiratory failure with hypercapnia (Acute) Chronic obstructive pulmonary disease with acute exacerbation (Acute) Nocturnal leg cramps (Resolved) History of stroke (Resolved 02/03/17) History of non-ST elevation myocardial infarction (NSTEMI) (Resolved 02/03/17) History of pneumonia (Resolved) H/O: section (Resolved) History of lumpectomy (Resolved) History of cholecystectomy (Resolved) Hemorrhagic cerebrovascular accident (CVA) (Resolved) Metabolic encephalopathy (Resolved) Upper GI bleed (Resolved) Elevated serum creatinine (Acute) PRES (posterior reversible encephalopathy syndrome) (Resolved) Acute respiratory failure (Resolved) This is a 63-year-old female with history of chronic hypoxic and hypercarbic combined respiratory failure, COPD/A. fib is noncompliant to BiPAP, anxiety with panic disorder and depression was admitted with increased confusion and sedation secondary to Ambien later on intubated secondary to acute on chronic respiratory acidosis. Initial ABG showed 7.1/PCO2 more than 130/, PO2 147 on 2 L of oxygen. Repeat ABG shows 7.35/7.3 5/39/66/118 on 45% FiO2/450/5 PEEP. 1. Acute on chronic hypercapnic and hypoxic respiratory failure/TIO/COPD/respiratory acidosis/sedating medication, Ambien -Currently, admitted in ICU. In ED, patient was started on propofol her pressures dropped therefore transitioned to fentanyl and Precedex -Continue with bronchodilators 2. Chronic systolic heart failure/CAD status post non-STEMI/HTN/HLD -She had an echo in September 2018 with an EF of 40 to 45% stage I diastolic dysfunction and moderate global hypokinesis of left ventricle -Once her blood pressure is stable , consider Coreg therapy and Aldactone -Continue with aspirin 3. GERD -Stable -Continue with PPI when taking p.o. DVT: Lovenox Clinical Impression(s) from Imaging Studies Brain CT 10/30/18 23:00 IMPRESSION: 1. No hemorrhage or acute intracranial disease identified. 2. Bilateral remote cerebral infarcts. 3. Chronic paranasal sinus disease. Chest X-Ray 10/30/18 23:10 IMPRESSION: New left lower lobe infiltrate, likely pneumonia which may be secondary to aspiration pneumonia COPD changes within the upper lobes Chest X-Ray 10/30/18 23:45 IMPRESSION: Normal x-ray examination of the chest.
--- NOTE | 2018-10-31 08:10 | PN_ITS ---
Subjective: The patient has been admitted 3 times since September 2018 for acute on chronic hypercapnic hypoxic, and respiratory failure secondary to noncompliance to BiPAP, COPD exacerbation and sedation. This time, patient took Ambien and very confused in ED. There was also concern of facial droop. She did not had increasing cough, congestion or URI symptoms. She was intubated in ED. She was just discharged on 10/24/18. Vitals/I&O's: Vital Signs Temp Pulse Resp BP Pulse Ox 100.1 F H 70 16 86/67 L 100 10/31/18 06:00 10/31/18 07:23 10/31/18 06:30 10/31/18 06:00 10/31/18 06:30 Oxygen Flow Rate (L/min) 2 Oxygen Delivery Method Mechanical Ventilator Weight: 140 lb 10.479 oz Body Mass Index (BMI) 24.0 Finger Stick Blood Glucose 101 Intake and Output for Last 24 Hours 10/29/18 10/30/18 10/31/18 23:59 23:59 23:59 Intake Total 1118 / 1118 Output Total 300 / 300 Balance 818 / 818 General: - - Currently intubated and sedated on Precedex drip and fentanyl. HEENT: Atraumatic, PERRLA, EOMI, Normocephalic Neck: Supple Lungs: No rhonchi, No wheeze, No rales, Diminished Cardiovascular: Regular rate, Regular Rhythm, Normal S1, Normal S2, No murmurs Abdomen: Bowel Sounds Present, Non Tender, Non-Distended, - - Has Fortune catheter Extremities: No edema, Capillary Refill Less than 3 Seconds Skin: No rashes, No breakdown Musculoskeletal: Arthritic Changes Lymphatic: No Cervical, Supraclavicular, or Inguinal Adenopathy Neurological: Cranial nerves II-XII grossly intact Laboratory Results 10/30/18 23:10: WBC 12.2 H, RBC 3.94 L, Hgb 11.5 L, Hct 39.0, MCV 99.0, MCH 29.2, MCHC 29.5 L, RDW 13.1, RDW Differential 46.7 H, Plt Count 229, MPV 9.7, Immature Gran % (Auto) 0.700, Neut % (Auto) 68.5, Lymph % (Auto) 21.5, Cocke % (Auto) 7.5, Eos % (Auto) 1.6, Baso % (Auto) 0.2, Absolute Neuts (auto) 8.3 H, Absolute Lymphs (auto) 2.62, Total Counted Not Reportable 10/30/18 23:10: Sodium 143, Potassium 4.6, Chloride 100, Carbon Dioxide 43.0 H, Anion Gap 0 L, BUN 12, Creatinine 0.81, Estim Creat Clear Calc 60.59, Est GFR (MDRD) Af Amer 92, Est GFR (MDRD) Non-Af 76, BUN/Creatinine Ratio 14.8, Glucose 108 H, Calcium 8.5, Total Bilirubin 0.20, AST 10 L, ALT 16, Alkaline Phosphatase 75, Total Protein 7.3, Albumin 3.3, Globulin 4.0, Albumin/Globulin Ratio 0.8 L 10/30/18 23:10: Ethyl Alcohol < 3.0 10/30/18 23:10: Ammonia 60.0 H 10/30/18 23:11: Specimen Type ART, Sample Site L Radial, pH 7.10 L*, Bicarbonate Actual TNP, POC Total CO2 TNP, Base Excess TNP, O2 Saturation TNP, ABG pCO2 > 130.0 H*, ABG pO2 147 H, Royal Test POS, O2 Delivery Device Nasal Can, Liter Flow 2.0, Blood Gas Notified Whom ED 10/30/18 23:35: Urine Color Yellow, Urine Clarity Clear, Urine pH 6.0, Ur Specific [place] 1.010, Urine Protein Negative, Urine Glucose (UA) Normal, Urine Ketones Negative, Urine Occult Blood 10 H, Urine Nitrite Negative, Urine Bilirubin Negative, Urine Urobilinogen Normal, Ur Leukocyte Esterase Negative, Urine RBC 0 SEEN, Urine WBC 0 SEEN, Ur Squamous Epith Cells 0 SEEN, Urine Bacteria 0 SEEN, Urine Mucus 0 SEEN 10/30/18 23:35: Urine Opiates Screen NEGATIVE, Urine Methadone Screen NEGATIVE, Ur Barbiturates Screen NEGATIVE, Ur Phencyclidine Scrn NEGATIVE, Ur Amphetamines Screen NEGATIVE, U Methamphetamin-MDMA NEGATIVE, U Benzodiazepines Scrn POSITIVE H, Urine Cocaine Screen NEGATIVE, U Cannabinoids Screen NEGATIVE, Ur Drug Screen Comment 10/31/18 01:23: Specimen Type ART, Sample Site R Radial, pH 7.35, Bicarbonate Actual 36.8 H, POC Total CO2 39, Base Excess 11 H, O2 Saturation 98, O2 % 45, ABG pCO2 65.9 H, ABG pO2 118 H, Royal Test POS, Respiration Rate 16, O2 Delivery Device Vent, Vent Mode A-C, Tidal Volume 450, POC PEEP 5, Blood Gas Notified Whom ED 10/31/18 03:00: WBC 8.8, RBC 3.25 L, Hgb 9.4 L, Hct 31.7 L, MCV 97.5, MCH 28.9, MCHC 29.7 L, RDW 13.4, RDW Differential 47.5 H, Plt Count 180, MPV 9.2, Immature Gran % (Auto) 0.100, Neut % (Auto) 73.5 H, Lymph % (Auto) 18.7 L, Cocke % (Auto) 6.3, Eos % (Auto) 1.2, Baso % (Auto) 0.2, Absolute Neuts (auto) 6.5, Absolute Lymphs (auto) 1.65, Total Counted Not Reportable 10/31/18 03:00: Sodium 146 H, Potassium 4.6, Chloride 108 H, Carbon Dioxide 36.0 H, Anion Gap 2 L, BUN 13, Creatinine 0.86, Estim Creat Clear Calc 57.07, Est GFR (MDRD) Af Amer 86, Est GFR (MDRD) Non-Af 71, BUN/Creatinine Ratio 15.2, Glucose 88, Calcium 7.6 L Current Medications Chlorhexidine Gluconate () 15 ml PO BID [facility] Enoxaparin Sodium (Lovenox) 40 mg SC DAILY@1000 WALTER Sodium Chloride () 1,000 mls @ 100 mls/hr IV .Q10H [facility] Last Admin: 10/31/18 04:33 Dose: 100 mls/hr Dexmedetomidine HCl 400 mcg/ (Sodium Chloride) 100 mls @ 7.37 mls/hr IV .[id number] [facility] Last Admin: 10/31/18 03:23 Dose: 7.37 mls/hr Famotidine 20 mg/ Sodium (Chloride) 10 mls @ 300 mls/hr IV Q24 WALTER Fentanyl () 100 mls @ 2.5 mls/hr IV .Q40H [facility] Sodium Chloride () 250 mls @ 15 mls/hr IV .[id number] PRN PRN Reason: SALINE FLUSH Magnesium Hydroxide (Milk Of Magnesia) 30 ml PO DAILY PRN PRN PRN Reason: Constipation Sodium Chloride () 5 - 15 ml IV UD PRN PRN Reason: SALINE FLUSH Medical Necessity - Tobacco Use Smoking Status: Former smoker Assessment/Plan All Active Problems (Last Reviewed 10/26/18 @ 13:16 by Lakisha Strickland) Acute and chronic respiratory failure with hypercapnia (Acute) Chronic obstructive pulmonary disease with acute exacerbation (Acute) Nocturnal leg cramps (Resolved) History of stroke (Resolved 02/03/17) History of non-ST elevation myocardial infarction (NSTEMI) (Resolved 02/03/17) History of pneumonia (Resolved) H/O: section (Resolved) History of lumpectomy (Resolved) History of cholecystectomy (Resolved) Hemorrhagic cerebrovascular accident (CVA) (Resolved) Metabolic encephalopathy (Resolved) Upper GI bleed (Resolved) Elevated serum creatinine (Acute) PRES (posterior reversible encephalopathy syndrome) (Resolved) Acute respiratory failure (Resolved) This is a 63-year-old female with history of chronic hypoxic and hypercarbic combined respiratory failure, COPD/A. fib is noncompliant to BiPAP, anxiety with panic disorder and depression was admitted with increased confusion and sedation secondary to Ambien later on intubated secondary to acute on chronic respiratory acidosis. Initial ABG showed 7.1/PCO2 more than 130/, PO2 147 on 2 L of oxygen. Repeat ABG shows 7.35/7.3 5/39/66/118 on 45% FiO2/450/5 PEEP. 1. Acute on chronic hypercapnic and hypoxic respiratory failure/TIO/COPD/respiratory acidosis/sedating medication, Ambien -Currently, admitted in ICU. In ED, patient was started on propofol her pressures dropped therefore transitioned to fentanyl and Precedex -Continue with bronchodilators 2. Chronic systolic heart failure/CAD status post non-STEMI/HTN/HLD -She had an echo in September 2018 with an EF of 40 to 45% stage I diastolic dysfunction and moderate global hypokinesis of left ventricle -Once her blood pressure is stable , consider Coreg therapy and Aldactone -Continue with aspirin 3. GERD -Stable -Continue with PPI when taking p.o. DVT: Lovenox Clinical Impression(s) from Imaging Studies Brain CT 10/30/18 23:00 IMPRESSION: 1. No hemorrhage or acute intracranial disease identified. 2. Bilateral remote cerebral infarcts. 3. Chronic paranasal sinus disease. Chest X-Ray 10/30/18 23:10 IMPRESSION: New left lower lobe infiltrate, likely pneumonia which may be secondary to aspiration pneumonia COPD changes within the upper lobes Chest X-Ray 10/30/18 23:45 IMPRESSION: Normal x-ray examination of the chest.
[2018-10-31] MEDS: Lactulose 20 GM/30 ML UDC 10 GM PO (08:25)
--- NOTE | 2018-10-31 09:42 | CASEMGMT ---
FINESSE CM Readmission Note Previous admission: 10/15/18-10/19/18 Diagnosis: respiratory failure with hypercapnia DC Disposition: Home with [facility] Present admission: Respiratory Failure with Hypercapnia Presentation: pt returned after having taken Ambien at home, and not wearing her Bipap; became confused and lethargic. CO2 > 130, pH 7.10. Pt known to be noncompliant with Bipap @ Home. Resp Therapist was consulted last admission to look @ Bipap fitting. Pt's brought Bipap in to hospital. -Dr. Duarte will speak with pt's and brother re: further plan of care. DC PLAN: anticipate Home with [facility]. Lali BROWN RN AC
[2018-10-31] MEDS: Enoxaparin 40 MG/0.4 ML Syringe SC (09:52)
[2018-10-31] MEDS: Chlorhexidine 15 ML PO ×2 (09:52→21:04)
[2018-10-31] MEDS: Famotidine 20 MG Tablet GT ×2 (09:52→21:04)
--- NOTE | 2018-10-31 14:42 | CHAPLAIN ---
Type of Pastoral Visit _x__ Initial Visit ___ Follow-up Visit ___ On-call Visit ___ General Patient Visit ___ Spiritual Assessment ___ Family Conference ___ Bereavement ___ Rapid Response ___ Code Blue ___ Other (describe below) Pastoral Care Referral From ___ Patient ___ Family ___ Nurse ___ Physician ___ Client Service Administrator ___ Aircraft Worker _x__ Other (describe below) Sacrament/Intervention ___ Active listening ___ Anointing ___ Restoration ___ Bereavement ___ Communion ___ Marlin exploration ___ ___ Life review _x__ Prayer ___ Reconciliation ___ Sacrament of Sick ___ Supportive presence ___ Wedding ___ Other (describe below) Pastoral Comments patient is intubated; gave prayer and left a calling card
[2018-10-31] MEDS: Acetaminophen 650 MG/20 ML UDC GT (15:18)
[2018-10-31] MEDS: fentaNYL drip 100 ML 2.5 MCG IV (16:12)
[2018-10-31 17:05] LABS: Bedside Glucose 88 mg/dL (70-110)
[2018-11-01] VITALS (38 sets, daily range): BP systolic 87–141; BP diastolic 46–97; PULSE 49–118; RESP 15–20; TEMP 37.2–38.2; O2SAT 97–100
[2018-11-01] MEDS: 0.9% Normal Saline 1,000 ML 100 ML IV ×3 (00:02→20:20)
[2018-11-01 00:21] LABS: Bedside Glucose 78 mg/dL (70-110)
[2018-11-01 04:30] LABS: Absolute Lymphocyte Count 1.78 X10^3/ul (0.83-4.51); Absolute Neutrophil Count 6.1 X10^3/uL (2.0-7.7); Basophil# 0.02 X10^3/uL; Basophil% 0.2 % (0-1); Eosinophil# 0.11 X10^3/uL; Eosinophils% 1.3 % (0-5); Hematocrit 32.8 % (37-47); Lymphocyte # 1.78 X10^3/ul (4.0); Lymphocyte % 20.5 % (19-41); Mean Corp Hgb Conc 30.5 g/gl (32-36); Mean Corpuscular Hgb 28.7 pg (27.0-32.0); Mean Corpuscular Volume 94.3 fL (81-99); Mean Platelet Vol. 9.9 fl (6.2-12.0); Monocyte# 0.72 X10^3/uL; Monocyte% 8.3 % (0-10); Neutrophil # 6.05 X10^3/uL (2.7-7.7); Neutrophil % 69.5 % (47-70); Platelet Count 136 K/mm3 (150-450); RBC Distribution Width CV 13.4 % (11.6-14.6); RBC Distribution Width SD 43.9 fl (35.1-43.9); Red Blood Count 3.48 M/mm3 (4.2-5.4); White Blood Count 8.7 K/mm3 (4.4-11.0)
[2018-11-01 04:33] LABS: POSITIVE COUNT NO; POSITIVE DIFFERENTIAL NO; POSITIVE MORPHOLOGY NO
[2018-11-01 04:48] LABS: Anion Gap 5 (5-15); BUN 16 mg/dL (7-18); BUN/Creat Ratio 20.9 RATIO (10-20); Calcium,Total 7.8 mg/dL (8.5-10.1); Chloride 112 mmol/L (98-107); Creatinine, Serum 0.76 mg/dL (0.55-1.02); EST Glomerular Filtration Rate 81 mL/min (>60); Est Glom Filt Rate - Afr Amer 98 mL/min (>60); Estimated Creatinine Clearance 64.58 ml/min; Glucose 89 mg/dL (74-106); Magnesium 1.5 mg/dL (1.6-2.6); Potassium 3.7 mmol/L (3.5-5.1); Sodium Level 145 mmol/L (136-145)
[2018-11-01 07:06] LABS: Bedside Glucose 90 mg/dL (70-110)
[2018-11-01 07:26] LABS: Base Excess 0 mmol/L (-2 to +2); Blood Gas Specimen Type ART; FI02 30; Mode CPAP PS; O2 Delivery Device Vent; PEEP 5; PO2 77 mmHG (75-100); PS 5; SITE R Radial; SO2 94 % (95-99); Time Given 719; Total Carbon Dioxide 28 mmol/L; pCO2 51.7 mmHg (35-45); pH 7.31 (7.35-7.45)
--- NOTE | 2018-11-01 07:42 | PCM.PN.INT ---
Subjective: Patient did well overnight. Patient did have a fever, but no hemodynamic instability was reported. Patient was placed on a spontaneous breathing trial this morning, but ABG showed continued respiratory acidosis at the end, so patient was placed back on mechanical ventilation. Respiratory is reporting significant oral secretions at this time. Objective: Chest x-ray will be ordered for evaluation of infiltrate. General: - - Intubated. RASS -1. Somewhat anxious when evaluated. HEENT: Atraumatic, PERRLA, EOMI, Normocephalic, - - Slight scleral injection without icterus Oral: Moist Mucosa, No Gingival or Mucosal Lesions/ Ulcerations Neck: Supple, No JVD, No Nodes, Trachea Midline Lungs: No rhonchi, No wheeze, No rales, Diminished, - - Patient did receive bronchodilators and suctioning prior to my evaluation. Cardiovascular: Regular rate, Regular Rhythm, Normal S1, Normal S2, No murmurs, No rub noted, No Gallop Abdomen: Bowel Sounds Present, Soft, Non Tender, Non-Distended Extremities: No cyanosis, No edema, Capillary Refill Less than 3 Seconds, Clubbing Skin: No rashes, No breakdown Musculoskeletal: No Tenderness to Palpation of Joints or Extremities Lymphatic: No Cervical, Supraclavicular, or Inguinal Adenopathy Neurological: Cranial nerves II-XII grossly intact, Neuro grossly intact, Motor Exam 5/5 strength throughout Psych/Mental Status: Flat Affect, Impulsive Vital Signs Temp Pulse Resp BP Pulse Ox 38.2 C H 108 H 16 118/60 99 11/01/18 06:00 11/01/18 06:57 11/01/18 06:00 11/01/18 06:00 11/01/18 06:00 Oxygen Flow Rate (L/min) 2 Oxygen Delivery Method Mechanical Ventilator Weight: 66.5 kg Body Mass Index (BMI) 24.0 Finger Stick Blood Glucose 101 Intake and Output for Last 24 Hours 10/30/18 10/31/18 11/01/18 23:59 23:59 23:59 Intake Total 2488 / 2488 1468.9 / 1468.9 Output Total 700 / 700 250 / 250 Balance 1788 / 1788 1218.9 / 1218.9 Labs (Last 48 Hours) 10/30/18 10/30/18 10/30/18 23:10 23:10 23:10 WBC 12.2 H RBC 3.94 L Hgb 11.5 L Hct 39.0 MCV 99.0 MCH 29.2 MCHC 29.5 L RDW 13.1 RDW Differential 46.7 H Plt Count 229 MPV 9.7 Immature Gran % (Auto) 0.700 Neut % (Auto) 68.5 Lymph % (Auto) 21.5 Beckham % (Auto) 7.5 Eos % (Auto) 1.6 Baso % (Auto) 0.2 Absolute Neuts (auto) 8.3 H Absolute Lymphs (auto) 2.62 Total Counted Not Reportable Specimen Type Sample Site pH Bicarbonate Actual POC Total CO2 Base Excess O2 Saturation O2 % ABG pCO2 ABG pO2 Royal Test Respiration Rate O2 Delivery Device Liter Flow Vent Mode Tidal Volume POC PEEP POC Pressure Suppt Blood Gas Notified Whom Blood Gas Notified Time Sodium 143 Potassium 4.6 Chloride 100 Carbon Dioxide 43.0 H Anion Gap 0 L BUN 12 Creatinine 0.81 Estim Creat Clear Calc 60.59 Est GFR (MDRD) Af Amer 92 Est GFR (MDRD) Non-Af 76 BUN/Creatinine Ratio 14.8 Glucose 108 H Calcium 8.5 Phosphorus Magnesium Total Bilirubin 0.20 AST 10 L ALT 16 Alkaline Phosphatase 75 Ammonia Total Protein 7.3 Albumin 3.3 Globulin 4.0 Albumin/Globulin Ratio 0.8 L Urine Color Urine Clarity Urine pH Ur Specific [place] Urine Protein Urine Glucose (UA) Urine Ketones Urine Occult Blood Urine Nitrite Urine Bilirubin Urine Urobilinogen Ur Leukocyte Esterase Urine RBC Urine WBC Ur Squamous Epith Cells Urine Bacteria Urine Mucus Urine Opiates Screen Urine Methadone Screen Ur Barbiturates Screen Ur Phencyclidine Scrn Ur Amphetamines Screen U Methamphetamin-MDMA U Benzodiazepines Scrn Urine Cocaine Screen U Cannabinoids Screen Ur Drug Screen Comment Ethyl Alcohol < 3.0 POC Glucose 10/30/18 10/30/18 10/30/18 23:10 23:11 23:35 WBC RBC Hgb Hct MCV MCH MCHC RDW RDW Differential Plt Count MPV Immature Gran % (Auto) Neut % (Auto) Lymph % (Auto) [place] % (Auto) Eos % (Auto) Baso % (Auto) Absolute Neuts (auto) Absolute Lymphs (auto) Total Counted Specimen Type ART Sample Site L Radial pH 7.10 L* Bicarbonate Actual TNP POC Total CO2 TNP Base Excess TNP O2 Saturation TNP O2 % ABG pCO2 > 130.0 H* ABG pO2 147 H Royal Test POS Respiration Rate O2 Delivery Device Nasal Can Liter Flow 2.0 Vent Mode Tidal Volume POC PEEP POC Pressure Suppt Blood Gas Notified Whom ED MD Blood Gas Notified Time Sodium Potassium Chloride Carbon Dioxide Anion Gap BUN Creatinine Estim Creat Clear Calc Est GFR (MDRD) Af Amer Est GFR (MDRD) Non-Af BUN/Creatinine Ratio Glucose Calcium Phosphorus Magnesium Total Bilirubin AST ALT Alkaline Phosphatase Ammonia 60.0 H Total Protein Albumin Globulin Albumin/Globulin Ratio Urine Color Yellow Urine Clarity Clear Urine pH 6.0 Ur Specific [place] 1.010 Urine Protein Negative Urine Glucose (UA) Normal Urine Ketones Negative Urine Occult Blood 10 H Urine Nitrite Negative Urine Bilirubin Negative Urine Urobilinogen Normal Ur Leukocyte Esterase Negative Urine RBC 0 SEEN Urine WBC 0 SEEN Ur Squamous Epith Cells 0 SEEN Urine Bacteria 0 SEEN Urine Mucus 0 SEEN Urine Opiates Screen Urine Methadone Screen Ur Barbiturates Screen Ur Phencyclidine Scrn Ur Amphetamines Screen U Methamphetamin-MDMA U Benzodiazepines Scrn Urine Cocaine Screen U Cannabinoids Screen Ur Drug Screen Comment Ethyl Alcohol POC Glucose 10/30/18 10/31/18 10/31/18 23:35 01:23 03:00 WBC 8.8 RBC 3.25 L Hgb 9.4 L Hct 31.7 L MCV 97.5 MCH 28.9 MCHC 29.7 L RDW 13.4 RDW Differential 47.5 H Plt Count 180 MPV 9.2 Immature Gran % (Auto) 0.100 Neut % (Auto) 73.5 H Lymph % (Auto) 18.7 L [place] % (Auto) 6.3 Eos % (Auto) 1.2 Baso % (Auto) 0.2 Absolute Neuts (auto) 6.5 Absolute Lymphs (auto) 1.65 Total Counted Not Reportable Specimen Type ART Sample Site R Radial pH 7.35 Bicarbonate Actual 36.8 H POC Total CO2 39 Base Excess 11 H O2 Saturation 98 O2 % 45 ABG pCO2 65.9 H ABG pO2 118 H Royal Test POS Respiration Rate 16 O2 Delivery Device Vent Liter Flow Vent Mode A-C Tidal Volume 450 POC PEEP 5 POC Pressure Suppt Blood Gas Notified Whom ED MD Blood Gas Notified Time Sodium Potassium Chloride Carbon Dioxide Anion Gap BUN Creatinine Estim Creat Clear Calc Est GFR (MDRD) Af Amer Est GFR (MDRD) Non-Af BUN/Creatinine Ratio Glucose Calcium Phosphorus Magnesium Total Bilirubin AST ALT Alkaline Phosphatase Ammonia Total Protein Albumin Globulin Albumin/Globulin Ratio Urine Color Urine Clarity Urine pH Ur Specific [place] Urine Protein Urine Glucose (UA) Urine Ketones Urine Occult Blood Urine Nitrite Urine Bilirubin Urine Urobilinogen Ur Leukocyte Esterase Urine RBC Urine WBC Ur Squamous Epith Cells Urine Bacteria Urine Mucus Urine Opiates Screen NEGATIVE Urine Methadone Screen NEGATIVE Ur Barbiturates Screen NEGATIVE Ur Phencyclidine Scrn NEGATIVE Ur Amphetamines Screen NEGATIVE U Methamphetamin-MDMA NEGATIVE U Benzodiazepines Scrn POSITIVE H Urine Cocaine Screen NEGATIVE U Cannabinoids Screen NEGATIVE Ur Drug Screen Comment Ethyl Alcohol POC Glucose 10/31/18 10/31/18 11/01/18 03:00 16:57 00:18 WBC RBC Hgb Hct MCV MCH MCHC RDW RDW Differential Plt Count MPV Immature Gran % (Auto) Neut % (Auto) Lymph % (Auto) [place] % (Auto) Eos % (Auto) Baso % (Auto) Absolute Neuts (auto) Absolute Lymphs (auto) Total Counted Specimen Type Sample Site pH Bicarbonate Actual POC Total CO2 Base Excess O2 Saturation O2 % ABG pCO2 ABG pO2 Royal Test Respiration Rate O2 Delivery Device Liter Flow Vent Mode Tidal Volume POC PEEP POC Pressure Suppt Blood Gas Notified Whom Blood Gas Notified Time Sodium 146 H Potassium 4.6 Chloride 108 H Carbon Dioxide 36.0 H Anion Gap 2 L BUN 13 Creatinine 0.86 Estim Creat Clear Calc 57.07 Est GFR (MDRD) Af Amer 86 Est GFR (MDRD) Non-Af 71 BUN/Creatinine Ratio 15.2 Glucose 88 Calcium 7.6 L Phosphorus Magnesium Total Bilirubin AST ALT Alkaline Phosphatase Ammonia Total Protein Albumin Globulin Albumin/Globulin Ratio Urine Color Urine Clarity Urine pH Ur Specific [place] Urine Protein Urine Glucose (UA) Urine Ketones Urine Occult Blood Urine Nitrite Urine Bilirubin Urine Urobilinogen Ur Leukocyte Esterase Urine RBC Urine WBC Ur Squamous Epith Cells Urine Bacteria Urine Mucus Urine Opiates Screen Urine Methadone Screen Ur Barbiturates Screen Ur Phencyclidine Scrn Ur Amphetamines Screen U Methamphetamin-MDMA U Benzodiazepines Scrn Urine Cocaine Screen U Cannabinoids Screen Ur Drug Screen Comment Ethyl Alcohol POC Glucose 88 78 11/01/18 11/01/18 11/01/18 04:15 04:15 07:01 WBC 8.7 RBC 3.48 L Hgb 10.0 L Hct 32.8 L MCV 94.3 MCH 28.7 MCHC 30.5 L RDW 13.4 RDW Differential 43.9 Plt Count 136 L MPV 9.9 Immature Gran % (Auto) 0.200 Neut % (Auto) 69.5 Lymph % (Auto) 20.5 [place] % (Auto) 8.3 Eos % (Auto) 1.3 Baso % (Auto) 0.2 Absolute Neuts (auto) 6.1 Absolute Lymphs (auto) 1.78 Total Counted Not Reportable Specimen Type Sample Site pH Bicarbonate Actual POC Total CO2 Base Excess O2 Saturation O2 % ABG pCO2 ABG pO2 Royal Test Respiration Rate O2 Delivery Device Liter Flow Vent Mode Tidal Volume POC PEEP POC Pressure Suppt Blood Gas Notified Whom Blood Gas Notified Time Sodium 145 Potassium 3.7 Chloride 112 H Carbon Dioxide 28.0 Anion Gap 5 BUN 16 Creatinine 0.76 Estim Creat Clear Calc 64.58 Est GFR (MDRD) Af Amer 98 Est GFR (MDRD) Non-Af 81 BUN/Creatinine Ratio 20.9 H Glucose 89 Calcium 7.8 L Phosphorus 1.0 L* Magnesium 1.5 L Total Bilirubin AST ALT Alkaline Phosphatase Ammonia Total Protein Albumin Globulin Albumin/Globulin Ratio Urine Color Urine Clarity Urine pH Ur Specific [place] Urine Protein Urine Glucose (UA) Urine Ketones Urine Occult Blood Urine Nitrite Urine Bilirubin Urine Urobilinogen Ur Leukocyte Esterase Urine RBC Urine WBC Ur Squamous Epith Cells Urine Bacteria Urine Mucus Urine Opiates Screen Urine Methadone Screen Ur Barbiturates Screen Ur Phencyclidine Scrn Ur Amphetamines Screen U Methamphetamin-MDMA U Benzodiazepines Scrn Urine Cocaine Screen U Cannabinoids Screen Ur Drug Screen Comment Ethyl Alcohol POC Glucose 90 11/01/18 07:20 WBC RBC Hgb Hct MCV MCH MCHC RDW RDW Differential Plt Count MPV Immature Gran % (Auto) Neut % (Auto) Lymph % (Auto) [place] % (Auto) Eos % (Auto) Baso % (Auto) Absolute Neuts (auto) Absolute Lymphs (auto) Total Counted Specimen Type ART Sample Site R Radial pH 7.31 L Bicarbonate Actual 26.0 POC Total CO2 28 Base Excess 0 O2 Saturation 94 L O2 % 30 ABG pCO2 51.7 H ABG pO2 77 Royal Test NA Respiration Rate O2 Delivery Device Vent Liter Flow Vent Mode CPAP PS Tidal Volume POC PEEP 5 POC Pressure Suppt 5 Blood Gas Notified Whom ICU Blood Gas Notified Time 719 Sodium Potassium Chloride Carbon Dioxide Anion Gap BUN Creatinine Estim Creat Clear Calc Est GFR (MDRD) Af Amer Est GFR (MDRD) Non-Af BUN/Creatinine Ratio Glucose Calcium Phosphorus Magnesium Total Bilirubin AST ALT Alkaline Phosphatase Ammonia Total Protein Albumin Globulin Albumin/Globulin Ratio Urine Color Urine Clarity Urine pH Ur Specific [place] Urine Protein Urine Glucose (UA) Urine Ketones Urine Occult Blood Urine Nitrite Urine Bilirubin Urine Urobilinogen Ur Leukocyte Esterase Urine RBC Urine WBC Ur Squamous Epith Cells Urine Bacteria Urine Mucus Urine Opiates Screen Urine Methadone Screen Ur Barbiturates Screen Ur Phencyclidine Scrn Ur Amphetamines Screen U Methamphetamin-MDMA U Benzodiazepines Scrn Urine Cocaine Screen U Cannabinoids Screen Ur Drug Screen Comment Ethyl Alcohol POC Glucose Clinical Impression(s) from Imaging Studies Brain CT 10/30/18 23:00 IMPRESSION: 1. No hemorrhage or acute intracranial disease identified. 2. Bilateral remote cerebral infarcts. 3. Chronic paranasal sinus disease. Individualized dose optimization techniques were used for this CT. at 0145 Reported and signed by: Juancarlos Man MD Electronically Signed: Juancarlos Man, at 1:44 EDT Tel , Service support , Chest X-Ray 10/30/18 23:10 IMPRESSION: New left lower lobe infiltrate, likely pneumonia which may be secondary to aspiration pneumonia COPD changes within the upper lobes Electronically Signed: Antelmo Aldridge, at 0:14 EDT Tel , Service support , Chest X-Ray 10/30/18 23:45 IMPRESSION: Normal x-ray examination of the chest. Electronically Signed: Peter De Guzman, at 0:16 EDT Tel , Service support , Medical Necessity - Tobacco Use Smoking Status: Former smoker Assessment/Plan All Active Problems (Last Reviewed 10/26/18 @ 13:16 by Lakisha Strickland) Acute and chronic respiratory failure with hypercapnia (Acute) Chronic obstructive pulmonary disease with acute exacerbation (Acute) Nocturnal leg cramps (Resolved) History of stroke (Resolved 02/03/17) History of non-ST elevation myocardial infarction (NSTEMI) (Resolved 02/03/17) History of pneumonia (Resolved) H/O: section (Resolved) History of lumpectomy (Resolved) History of cholecystectomy (Resolved) Hemorrhagic cerebrovascular accident (CVA) (Resolved) Metabolic encephalopathy (Resolved) Upper GI bleed (Resolved) Elevated serum creatinine (Acute) PRES (posterior reversible encephalopathy syndrome) (Resolved) Acute respiratory failure (Resolved) RECOMMENDATIONS: 1. Continue Precedex, fentanyl and bronchodilators 2. Obtain chest x-ray to evaluate for infiltrate 3. Obtain sputum culture, hold on antibiotics for now 4. Discussed with family about goals of therapy 5. Aggressive repletion of phosphorus 6. Resume mechanical ventilation 7. Initiate steroid therapy IMPRESSIONS: 1. Acute on chronic combined respiratory failure secondary to noncompliance Patient with multiple similar type of admissions over the last 6 months. Patient does respond to positive pressure ventilation, but following extubation has refused to continue BiPAP therapy despite multiple conversations about his necessity to deal with carbon dioxide. Patient unable to pass spontaneous breathing trial this morning secondary to CO2 retention. Oral secretions have been reported, but not significant endotracheal secretions. Will obtain a sputum culture. Obtain a chest x-ray for evaluation of infiltrate. Will initiate patient on steroid therapy, but this may be short-lived. Patient may have hypoventilation secondary to hypophosphatemia. This has been replaced. 2. Chronic systolic congestive heart failure/coronary artery disease/hypertension/hyperlipidemia Patient appears to be at her baseline at this time. Patient did have a recent echocardiogram showing an EF of 40 to 45% with stage I diastolic dysfunction and moderate global hypokinesis of the left ventricle. Patient is on medical therapy at this time. Okay to continue from my perspective. 3. CODE STATUS Patient continues to ask for aggressive measures despite noncompliance with noninvasive therapy to avoid future complications. Will discuss with patient's family at the bedside. Hospice measures are likely appropriate. 4. GERD/history of noncompliance/multiple surgeries/recurrent admissions Complicates care, management, recovery and prognosis. Okay to continue with PPI. TIME: 31 minutes critical care time spent addressing patient's acute on chronic respiratory failure, congestive heart failure, review of all data and collaboration with care team (6:50 AM to 7:50 AM) Code Visit [id number]: [id number] Critical care first hour
--- NOTE | 2018-11-01 07:55 | PCM.PN.HOSP ---
Subjective: T-max 100.7 Fahrenheit. Heart rate control. Blood pressure 118/60. ABG reviewed. Patient was put on CPAP, 5 mmHg pressor support but PCO2 51 with pH 7.31 therefore decided not to extubate. Vitals/I&O's: Vital Signs Temp Pulse Resp BP Pulse Ox 100.7 F H 108 H 16 118/60 99 11/01/18 06:00 11/01/18 06:57 11/01/18 06:00 11/01/18 06:00 11/01/18 06:00 Oxygen Flow Rate (L/min) 2 Oxygen Delivery Method Mechanical Ventilator Weight: 146 lb 9.718 oz Body Mass Index (BMI) 24.0 Finger Stick Blood Glucose 101 Intake and Output for Last 24 Hours 10/30/18 10/31/18 11/01/18 23:59 23:59 23:59 Intake Total 2488 / 2488 1468.9 / 1468.9 Output Total 700 / 700 250 / 250 Balance 1788 / 1788 1218.9 / 1218.9 General: Alert, Cooperative, - - Intubated on ventilator. Patient was put back on AC control HEENT: Atraumatic, PERRLA, EOMI, Normocephalic Oral: Dry Mucosa Neck: Supple, No JVD, Negative Carotid Bruits Lungs: Diminished, Rhonchi, - - On ventilator Cardiovascular: Regular rate, Regular Rhythm, Normal S1, Normal S2, No murmurs Abdomen: Bowel Sounds Present, Soft, Non Tender, Non-Distended Extremities: No edema, Capillary Refill Less than 3 Seconds Skin: No rashes, No breakdown Musculoskeletal: No Tenderness to Palpation of Joints or Extremities, Arthritic Changes, Muscle Wasting Neurological: Cranial nerves II-XII grossly intact, Deep Tendon Reflexes 2+/4 and Symmetrical, Neuro grossly intact Psych/Mental Status: Normal Affect, Appropriate Laboratory Results 10/31/18 16:57: POC Glucose 88 11/01/18 00:18: POC Glucose 78 11/01/18 04:15: WBC 8.7, RBC 3.48 L, Hgb 10.0 L, Hct 32.8 L, MCV 94.3, MCH 28.7, MCHC 30.5 L, RDW 13.4, RDW Differential 43.9, Plt Count 136 L, MPV 9.9, Immature Gran % (Auto) 0.200, Neut % (Auto) 69.5, Lymph % (Auto) 20.5, [place] % (Auto) 8.3, Eos % (Auto) 1.3, Baso % (Auto) 0.2, Absolute Neuts (auto) 6.1, Absolute Lymphs (auto) 1.78, Total Counted Not Reportable 11/01/18 04:15: Sodium 145, Potassium 3.7, Chloride 112 H, Carbon Dioxide 28.0, Anion Gap 5, BUN 16, Creatinine 0.76, Estim Creat Clear Calc 64.58, Est GFR (MDRD) Af Amer 98, Est GFR (MDRD) Non-Af 81, BUN/Creatinine Ratio 20.9 H, Glucose 89, Calcium 7.8 L, Phosphorus 1.0 L*, Magnesium 1.5 L 11/01/18 07:01: POC Glucose 90 11/01/18 07:20: Specimen Type ART, Sample Site R Radial, pH 7.31 L, Bicarbonate Actual 26.0, POC Total CO2 28, Base Excess 0, O2 Saturation 94 L, O2 % 30, ABG pCO2 51.7 H, ABG pO2 77, Royal Test NA, O2 Delivery Device Vent, Vent Mode CPAP PS, POC PEEP 5, POC Pressure Suppt 5, Blood Gas Notified Whom ICU MD, Blood Gas Notified Time 719 Current Medications Acetaminophen (Tylenol Liquid) 650 mg GT Q6H PRN PRN PRN Reason: Fever >101 Last Admin: 10/31/18 15:18 Dose: 650 mg Chlorhexidine Gluconate () 15 ml PO BID [facility] Last Admin: 10/31/18 21:04 Dose: 15 ml Chlorhexidine Gluconate () 1 each TOPICAL DAILY [facility] Enoxaparin Sodium (Lovenox) 40 mg SC DAILY@1000 [facility] Last Admin: 10/31/18 09:52 Dose: 40 mg Famotidine (Pepcid) 20 mg GT BID [facility] Last Admin: 10/31/18 21:04 Dose: 20 mg Sodium Chloride () 1,000 mls @ 100 mls/hr IV .Q10H [facility] Last Admin: 11/01/18 00:02 Dose: 100 mls/hr Dexmedetomidine HCl 400 mcg/ (Sodium Chloride) 100 mls @ 7.37 mls/hr IV .[id number] [facility] Last Admin: 10/31/18 22:52 Dose: 7.37 mls/hr Fentanyl () 100 mls @ 2.5 mls/hr IV .Q40H [facility] Last Admin: 10/31/18 16:12 Dose: 2.5 mls/hr Sodium Chloride () 250 mls @ 15 mls/hr IV .[id number] PRN PRN Reason: SALINE FLUSH Potassium Phosphate 30 mm/ (Sodium Chloride) 260 mls @ 42 mls/hr IV X1 ONE Stop: 11/01/18 12:13 Last Admin: 11/01/18 06:43 Dose: 42 mls/hr Magnesium Hydroxide (Milk Of Magnesia) 30 ml PO DAILY PRN PRN PRN Reason: Constipation Methylprednisolone (Solu-Medrol) 40 mg IV Q8 [facility] Sodium Chloride () 5 - 15 ml IV UD PRN PRN Reason: SALINE FLUSH Medical Necessity - Tobacco Use Smoking Status: Former smoker Assessment/Plan All Active Problems (Last Reviewed 10/26/18 @ 13:16 by Lakisha Strickland) Acute and chronic respiratory failure with hypercapnia (Acute) Chronic obstructive pulmonary disease with acute exacerbation (Acute) Nocturnal leg cramps (Resolved) History of stroke (Resolved 02/03/17) History of non-ST elevation myocardial infarction (NSTEMI) (Resolved 02/03/17) History of pneumonia (Resolved) H/O: section (Resolved) History of lumpectomy (Resolved) History of cholecystectomy (Resolved) Hemorrhagic cerebrovascular accident (CVA) (Resolved) Metabolic encephalopathy (Resolved) Upper GI bleed (Resolved) Elevated serum creatinine (Acute) PRES (posterior reversible encephalopathy syndrome) (Resolved) Acute respiratory failure (Resolved) This is a 63-year-old female with history of chronic hypoxic and hypercarbic combined respiratory failure, COPD/A. fib is noncompliant to BiPAP, anxiety with panic disorder and depression was admitted with increased confusion and sedation secondary to Ambien later on intubated secondary to acute on chronic respiratory acidosis. Initial ABG showed 7.1/PCO2 more than 130/, PO2 147 on 2 L of oxygen. Repeat ABG shows 7.35/7.3 5/39/66/118 on 45% FiO2/450/5 PEEP. 1. Acute on chronic hypercapnic and hypoxic respiratory failure/TIO/COPD/respiratory acidosis/sedating medication, Ambien -Currently, admitted in ICU. In ED, patient was started on propofol her pressures dropped therefore transitioned to fentanyl and Precedex. ABG shows CO2 retention and patient failed spontaneous breathing trial therefore put back on AC mode. As per the respiratory therapist, patient still has oral secretions. Steroid and chest x-ray recommended by button bradder. -Continue with bronchodilators 2. Chronic systolic heart failure/CAD status post non-STEMI/HTN/HLD -She had an echo in September 2018 with an EF of 40 to 45% stage I diastolic dysfunction and moderate global hypokinesis of left ventricle -Once her blood pressure is stable , consider Coreg therapy and Aldactone -Continue with aspirin 3. Electrolyte abnormality: Patient has severe hypophosphatemia: Phosphate is being replaced. Hypomagnesemia, magnesium 1.5. K3.7. Magnesium being replaced. GERD -Stable -Continue with PPI when taking p.o. DVT: Lovenox Clinical Impression(s) from Imaging Studies Brain CT 10/30/18 23:00 IMPRESSION: 1. No hemorrhage or acute intracranial disease identified. 2. Bilateral remote cerebral infarcts. 3. Chronic paranasal sinus disease. Chest X-Ray 10/30/18 23:10 IMPRESSION: New left lower lobe infiltrate, likely pneumonia which may be secondary to aspiration pneumonia COPD changes within the upper lobes Chest X-Ray 10/30/18 23:45 IMPRESSION: Normal x-ray examination of the chest. Laboratory Results 11/01/18 04:15: WBC 8.7, RBC 3.48 L, Hgb 10.0 L, Hct 32.8 L, MCV 94.3, MCH 28.7, MCHC 30.5 L, RDW 13.4, RDW Differential 43.9, Plt Count 136 L, MPV 9.9, Immature Gran % (Auto) 0.200, Neut % (Auto) 69.5, Lymph % (Auto) 20.5, [place] % (Auto) 8.3, Eos % (Auto) 1.3, Baso % (Auto) 0.2, Absolute Neuts (auto) 6.1, Absolute Lymphs (auto) 1.78, Total Counted Not Reportable 11/01/18 04:15: Sodium 145, Potassium 3.7, Chloride 112 H, Carbon Dioxide 28.0, Anion Gap 5, BUN 16, Creatinine 0.76, Estim Creat Clear Calc 64.58, Est GFR (MDRD) Af Amer 98, Est GFR (MDRD) Non-Af 81, BUN/Creatinine Ratio 20.9 H, Glucose 89, Calcium 7.8 L, Phosphorus 1.0 L*, Magnesium 1.5 L 11/01/18 07:01: POC Glucose 90 11/01/18 07:20: Specimen Type ART, Sample Site R Radial, pH 7.31 L, Bicarbonate Actual 26.0, POC Total CO2 28, Base Excess 0, O2 Saturation 94 L, O2 % 30, ABG pCO2 51.7 H, ABG pO2 77, Royal Test NA, O2 Delivery Device Vent, Vent Mode CPAP PS, POC PEEP 5, POC Pressure Suppt 5, Blood Gas Notified Whom ICU MD, Blood Gas Notified Time 719 Code Visit Inpatient E&M: 90770 Init Hosp L3
--- NOTE | 2018-11-01 08:02 | PN_ITS ---
Subjective: T-max 100.7 Fahrenheit. Heart rate control. Blood pressure 118/60. ABG reviewed. Patient was put on CPAP, 5 mmHg pressor support but PCO2 51 with pH 7.31 therefore decided not to extubate. Vitals/I&O's: Vital Signs Temp Pulse Resp BP Pulse Ox 100.7 F H 108 H 16 118/60 99 11/01/18 06:00 11/01/18 06:57 11/01/18 06:00 11/01/18 06:00 11/01/18 06:00 Oxygen Flow Rate (L/min) 2 Oxygen Delivery Method Mechanical Ventilator Weight: 146 lb 9.718 oz Body Mass Index (BMI) 24.0 Finger Stick Blood Glucose 101 Intake and Output for Last 24 Hours 10/30/18 10/31/18 11/01/18 23:59 23:59 23:59 Intake Total 2488 / 2488 1468.9 / 1468.9 Output Total 700 / 700 250 / 250 Balance 1788 / 1788 1218.9 / 1218.9 General: Alert, Cooperative, - - Intubated on ventilator. Patient was put back on AC control HEENT: Atraumatic, PERRLA, EOMI, Normocephalic Oral: Dry Mucosa Neck: Supple, No JVD, Negative Carotid Bruits Lungs: Diminished, Rhonchi, - - On ventilator Cardiovascular: Regular rate, Regular Rhythm, Normal S1, Normal S2, No murmurs Abdomen: Bowel Sounds Present, Soft, Non Tender, Non-Distended Extremities: No edema, Capillary Refill Less than 3 Seconds Skin: No rashes, No breakdown Musculoskeletal: No Tenderness to Palpation of Joints or Extremities, Arthritic Changes, Muscle Wasting Neurological: Cranial nerves II-XII grossly intact, Deep Tendon Reflexes 2+/4 and Symmetrical, Neuro grossly intact Psych/Mental Status: Normal Affect, Appropriate Laboratory Results 10/31/18 16:57: POC Glucose 88 11/01/18 00:18: POC Glucose 78 11/01/18 04:15: WBC 8.7, RBC 3.48 L, Hgb 10.0 L, Hct 32.8 L, MCV 94.3, MCH 28.7, MCHC 30.5 L, RDW 13.4, RDW Differential 43.9, Plt Count 136 L, MPV 9.9, Immature Gran % (Auto) 0.200, Neut % (Auto) 69.5, Lymph % (Auto) 20.5, [place] % (Auto) 8.3, Eos % (Auto) 1.3, Baso % (Auto) 0.2, Absolute Neuts (auto) 6.1, Absolute Lymphs (auto) 1.78, Total Counted Not Reportable 11/01/18 04:15: Sodium 145, Potassium 3.7, Chloride 112 H, Carbon Dioxide 28.0, Anion Gap 5, BUN 16, Creatinine 0.76, Estim Creat Clear Calc 64.58, Est GFR (MDRD) Af Amer 98, Est GFR (MDRD) Non-Af 81, BUN/Creatinine Ratio 20.9 H, Glucose 89, Calcium 7.8 L, Phosphorus 1.0 L*, Magnesium 1.5 L 11/01/18 07:01: POC Glucose 90 11/01/18 07:20: Specimen Type ART, Sample Site R Radial, pH 7.31 L, Bicarbonate Actual 26.0, POC Total CO2 28, Base Excess 0, O2 Saturation 94 L, O2 % 30, ABG pCO2 51.7 H, ABG pO2 77, Royal Test NA, O2 Delivery Device Vent, Vent Mode CPAP PS, POC PEEP 5, POC Pressure Suppt 5, Blood Gas Notified Whom ICU MD, Blood Gas Notified Time 719 Current Medications Acetaminophen (Tylenol Liquid) 650 mg GT Q6H PRN PRN PRN Reason: Fever >101 Last Admin: 10/31/18 15:18 Dose: 650 mg Chlorhexidine Gluconate () 15 ml PO BID [facility] [place] Last Admin: 10/31/18 21:04 Dose: 15 ml Chlorhexidine Gluconate () 1 each TOPICAL DAILY [facility] Enoxaparin Sodium (Lovenox) 40 mg SC DAILY@1000 [facility] Last Admin: 10/31/18 09:52 Dose: 40 mg Famotidine (Pepcid) 20 mg GT BID [facility] Last Admin: 10/31/18 21:04 Dose: 20 mg Sodium Chloride () 1,000 mls @ 100 mls/hr IV .Q10H [facility] [place] Last Admin: 11/01/18 00:02 Dose: 100 mls/hr Dexmedetomidine HCl 400 mcg/ (Sodium Chloride) 100 mls @ 7.37 mls/hr IV .[id number] [facility] Last Admin: 10/31/18 22:52 Dose: 7.37 mls/hr Fentanyl () 100 mls @ 2.5 mls/hr IV .Q40H [facility] Last Admin: 10/31/18 16:12 Dose: 2.5 mls/hr Sodium Chloride () 250 mls @ 15 mls/hr IV .[id number] PRN PRN Reason: SALINE FLUSH Potassium Phosphate 30 mm/ (Sodium Chloride) 260 mls @ 42 mls/hr IV X1 ONE Stop: 11/01/18 12:13 Last Admin: 11/01/18 06:43 Dose: 42 mls/hr Magnesium Hydroxide (Milk Of Magnesia) 30 ml PO DAILY PRN PRN PRN Reason: Constipation Methylprednisolone (Solu-Medrol) 40 mg IV Q8 [facility] [place] Sodium Chloride () 5 - 15 ml IV UD PRN PRN Reason: SALINE FLUSH Medical Necessity - Tobacco Use Smoking Status: Former smoker Assessment/Plan All Active Problems (Last Reviewed 10/26/18 @ 13:16 by Lakisha Strickland) Acute and chronic respiratory failure with hypercapnia (Acute) Chronic obstructive pulmonary disease with acute exacerbation (Acute) Nocturnal leg cramps (Resolved) History of stroke (Resolved 02/03/17) History of non-ST elevation myocardial infarction (NSTEMI) (Resolved 02/03/17) History of pneumonia (Resolved) H/O: section (Resolved) History of lumpectomy (Resolved) History of cholecystectomy (Resolved) Hemorrhagic cerebrovascular accident (CVA) (Resolved) Metabolic encephalopathy (Resolved) Upper GI bleed (Resolved) Elevated serum creatinine (Acute) PRES (posterior reversible encephalopathy syndrome) (Resolved) Acute respiratory failure (Resolved) This is a 63-year-old female with history of chronic hypoxic and hypercarbic combined respiratory failure, COPD/A. fib is noncompliant to BiPAP, anxiety with panic disorder and depression was admitted with increased confusion and sedation secondary to Ambien later on intubated secondary to acute on chronic respiratory acidosis. Initial ABG showed 7.1/PCO2 more than 130/, PO2 147 on 2 L of oxygen. Repeat ABG shows 7.35/7.3 5/39/66/118 on 45% FiO2/450/5 PEEP. 1. Acute on chronic hypercapnic and hypoxic respiratory fail ure/TIO/COPD/respiratory acidosis/sedating medication, Ambien -Currently, admitted in ICU. In ED, patient was started on propofol her pressures dropped therefore transitioned to fentanyl and Precedex. ABG shows CO2 retention and patient failed spontaneous breathing trial therefore put back on AC mode. As per the respiratory therapist, patient still has oral secretions. Steroid and chest x-ray recommended by forming acid dumper. -Continue with bronchodilators 2. Chronic systolic heart failure/CAD status post non-STEMI/HTN/HLD -She had an echo in September 2018 with an EF of 40 to 45% stage I diastolic dysfunction and moderate global hypokinesis of left ventricle -Once her blood pressure is stable , consider Coreg therapy and Aldactone -Continue with aspirin 3. Electrolyte abnormality: Patient has severe hypophosphatemia: Phosphate is being replaced. Hypomagnesemia, magnesium 1.5. K3.7. Magnesium being replaced. GERD -Stable -Continue with PPI when taking p.o. DVT: Lovenox Clinical Impression(s) from Imaging Studies Brain CT 10/30/18 23:00 IMPRESSION: 1. No hemorrhage or acute intracranial disease identified. 2. Bilateral remote cerebral infarcts. 3. Chronic paranasal sinus disease. Chest X-Ray 10/30/18 23:10 IMPRESSION: New left lower lobe infiltrate, likely pneumonia which may be secondary to aspiration pneumonia COPD changes within the upper lobes Chest X-Ray 10/30/18 23:45 IMPRESSION: Normal x-ray examination of the chest. Laboratory Results 11/01/18 04:15: WBC 8.7, RBC 3.48 L, Hgb 10.0 L, Hct 32.8 L, MCV 94.3, MCH 28.7, MCHC 30.5 L, RDW 13.4, RDW Differential 43.9, Plt Count 136 L, MPV 9.9, Immature Gran % (Auto) 0.200, Neut % (Auto) 69.5, Lymph % (Auto) 20.5, [place] % (Auto) 8.3, Eos % (Auto) 1.3, Baso % (Auto) 0.2, Absolute Neuts (auto) 6.1, Absolute Lymphs (auto) 1.78, Total Counted Not Reportable 11/01/18 04:15: Sodium 145, Potassium 3.7, Chloride 112 H, Carbon Dioxide 28.0, Anion Gap 5, BUN 16, Creatinine 0.76, Estim Creat Clear Calc 64.58, Est GFR (MDRD) Af Amer 98, Est GFR (MDRD) Non-Af 81, BUN/Creatinine Ratio 20.9 H, Glucose 89, Calcium 7.8 L, Phosphorus 1.0 L*, Magnesium 1.5 L 11/01/18 07:01: POC Glucose 90 11/01/18 07:20: Specimen Type ART, Sample Site R Radial, pH 7.31 L, Bicarbonate Actual 26.0, POC Total CO2 28, Base Excess 0, O2 Saturation 94 L, O2 % 30, ABG pCO2 51.7 H, ABG pO2 77, Royal Test NA, O2 Delivery Device Vent, Vent Mode CPAP PS, POC PEEP 5, POC Pressure Suppt 5, Blood Gas Notified Whom ICU MD, Blood Gas Notified Time 719 Code Visit Inpatient E&M: 74356 Init Hosp L3
[2018-11-01] MEDS: CHLORHEXIDINE GLUC 2% CLOTH 1 EACH TOWELETTE TOPICAL (08:32)
--- NOTE | 2018-11-01 08:50 | RAD_ITS ---
STUDY: X-RAY CHEST REASON FOR EXAM: Female, 63 years old. Hypercapnic respiratory failure TECHNIQUE: Single AP portable view of the chest. COMPARISON: 10/30/2018 FINDINGS: Stable ET tube. Stable enteric tube. Continued COPD without evidence of acute airspace disease. Remainder is stable. RAD/Chest 1 View (Portable) IMPRESSION: Stable interval exam Electronically Signed: Brian Funez DO at 10:36 EDT Tel , Service support ,
--- NOTE | 2018-11-01 09:40 | CASEMGMT ---
RN SPIKE Note: Spoke with pt after ICU rounds re: recommendation pt consider SNF on discharge. Pt remains intubated and able to nod yes no. RN SPIKE let pt know we will discuss further and include her and brother in dc planning, but to consider short term skilled stay prior to dc. -Per RT, sleep lab personnel will look @ pt's Bipap and refit mask for her prior to dc. to bring her home Bipap in. -DC PLAN: undetermined. consider SNF for short term stay. Lali BROWN RN ACM
[2018-11-01] MEDS: Chlorhexidine 15 ML PO ×2 (10:12→22:05)
[2018-11-01] MEDS: Enoxaparin 40 MG/0.4 ML Syringe SC (10:12)
[2018-11-01] MEDS: Famotidine 20 MG Tablet GT ×2 (10:12→22:05)
[2018-11-01 12:10] LABS: Bedside Glucose 87 mg/dL (70-110)
[2018-11-01] MEDS: Vital AF 1.2 Cal Liquid 1,000 ML 60 ML GT (12:45)
--- NOTE | 2018-11-01 15:56 | CHAPLAIN ---
Type of Pastoral Visit ___ Initial Visit _x__ Follow-up Visit ___ On-call Visit ___ General Patient Visit ___ Spiritual Assessment ___ Family Conference ___ Bereavement ___ Rapid Response ___ Code Blue ___ Other (describe below) Pastoral Care Referral From ___ Patient ___ Family ___ Nurse ___ Physician ___ Carpenter Mate ___ Social Services Manager ___ Other (describe below) Sacrament/Intervention ___ Active listening ___ Anointing ___ Bahai ___ Bereavement ___ Communion ___ Marlin exploration ___ ___ Life review _x__ Prayer ___ Reconciliation ___ Sacrament of Sick _x__ Supportive presence ___ Wedding ___ Other (describe below) Pastoral Comments patient was able to open her eyes and did respond by nodding head to corporate strategy intern
[2018-11-01 16:22] LABS: Anion Gap 4 (5-15); BUN 16 mg/dL (7-18); BUN/Creat Ratio 24.6 RATIO (10-20); Calcium,Total 7.5 mg/dL (8.5-10.1); Chloride 112 mmol/L (98-107); Creatinine, Serum 0.65 mg/dL (0.55-1.02); EST Glomerular Filtration Rate 98 mL/min (>60); Est Glom Filt Rate - Afr Amer 118 mL/min (>60); Glucose 90 mg/dL (74-106); Phosphorus 3.1 mg/dL (2.5-4.9); Potassium 4.1 mmol/L (3.5-5.1); Sodium Level 141 mmol/L (136-145)
[2018-11-01] MEDS: fentaNYL drip 100 ML 2.5 MCG IV (16:35)
[2018-11-01 17:56] LABS: Bedside Glucose 119 mg/dL (70-110)
[2018-11-02] VITALS (37 sets, daily range): BP systolic 106–152; BP diastolic 56–89; PULSE 48–97; RESP 12–22; TEMP 36.5–37.1; O2SAT 95–100
[2018-11-02 00:46] LABS: Bedside Glucose 174 mg/dL (70-110)
--- NOTE | 2018-11-02 01:11 | EKG12_ITS ---
Test Reason : RHYTHM CHANGE Blood Pressure : / mmHG Vent. Rate : 059 BPM Atrial Rate : 059 BPM P-R Int : 118 ms QRS Dur : 082 ms QT Int : 462 ms P-R-T Axes : 076 060 052 degrees QTc Int : 457 ms Sinus bradycardia Otherwise normal ECG When compared with ECG of 02-NOV-2018 00:41, MANUAL COMPARISON REQUIRED, DATA IS UNCONFIRMED Confirmed by GLORIA HOBSON ([id number]), television news video editor AJ AYOUB ([id number]) on 11/07/2018 2:26:24 PM Referred By: NIGEL Confirmed By:ADITI HOBSON
[2018-11-02 01:33] LABS: Absolute Neutrophil Count 6.8 X10^3/uL (2.0-7.7); Basophil# 0.01 X10^3/uL; Basophil% 0.1 % (0-1); Hematocrit 33.4 % (37-47); Hemoglobin 10.8 g/dl (12.0-15.0); Lymphocyte % 8.1 % (19-41); Mean Corp Hgb Conc 32.3 g/gl (32-36); Mean Corpuscular Hgb 29.2 pg (27.0-32.0); Mean Corpuscular Volume 90.3 fL (81-99); Mean Platelet Vol. 10.2 fl (6.2-12.0); Monocyte# 0.08 X10^3/uL; Monocyte% 1.1 % (0-10); Neutrophil # 6.75 X10^3/uL (2.7-7.7); Platelet Count 138 K/mm3 (150-450); RBC Distribution Width CV 13.4 % (11.6-14.6); White Blood Count 7.5 K/mm3 (4.4-11.0)
[2018-11-02 01:35] LABS: Differential Indicated SCAN CRITERIA MET; POSITIVE COUNT NO; POSITIVE DIFFERENTIAL YES; POSITIVE MORPHOLOGY NO
[2018-11-02 01:36] LABS: Neutrophil % 90.6 % (47-70)
[2018-11-02 01:38] LABS: Anion Gap 8 (5-15); BUN 21 mg/dL (7-18); BUN/Creat Ratio 31.7 RATIO (10-20); Calcium,Total 7.9 mg/dL (8.5-10.1); Chloride 111 mmol/L (98-107); Creatinine, Serum 0.66 mg/dL (0.55-1.02); EST Glomerular Filtration Rate 96 mL/min (>60); Est Glom Filt Rate - Afr Amer 116 mL/min (>60); Estimated Creatinine Clearance 74.36 ml/min; Glucose 185 mg/dL (74-106); Phosphorus 2.8 mg/dL (2.5-4.9); Sodium Level 140 mmol/L (136-145)
[2018-11-02 01:55] LABS: Differential Comment SCANNED
[2018-11-02] MEDS: 0.9% Normal Saline 1,000 ML 100 ML IV (06:03)
[2018-11-02] MEDS: CHLORHEXIDINE GLUC 2% CLOTH 1 EACH TOWELETTE TOPICAL (06:09)
[2018-11-02 06:21] LABS: Allen Test POS; Base Excess -5 mmol/L (-2 to +2); Bicarbonate 21.6 mmol/L (22-26); Blood Gas Specimen Type ART; FI02 30; Mode CPAP PS; O2 Delivery Device Vent; PEEP 5; PO2 111 mmHG (75-100); PS 5; SITE R Radial; SO2 98 % (95-99); Total Carbon Dioxide 23 mmol/L; pCO2 44.4 mmHg (35-45)
--- NOTE | 2018-11-02 06:57 | PCM.PN.INT ---
Subjective: Patient did okay overnight. Patient did have some episodes of bradycardia that was attributed to Precedex therapy. Patient did not have any hemodynamic instability. Patient did tolerate spontaneous breathing trial this morning and is answering questions appropriately. General: - - RASS 0. Appears older than stated age. Good vent synchrony noted. HEENT: Atraumatic, PERRLA, EOMI, Normocephalic, - - No scleral icterus or injection noted Oral: Moist Mucosa, No Gingival or Mucosal Lesions/ Ulcerations Neck: Supple, No JVD, No Nodes, Trachea Midline Lungs: No rhonchi, No wheeze, No rales, Diminished, - - Symmetric expansion. No dullness to percussion. Cardiovascular: Regular rate, Regular Rhythm, Normal S1, Normal S2, No murmurs, No rub noted, No Gallop Abdomen: Bowel Sounds Present, Soft, Non Tender, Non-Distended Extremities: No cyanosis, Clubbing, Edema Skin: - - No change from previous Musculoskeletal: No Tenderness to Palpation of Joints or Extremities Lymphatic: No Cervical, Supraclavicular, or Inguinal Adenopathy Neurological: Cranial nerves II-XII grossly intact, Neuro grossly intact, Motor Exam 5/5 strength throughout Psych/Mental Status: Flat Affect, Impulsive Vital Signs Temp Pulse Resp BP Pulse Ox 36.9 C 66 14 106/88 H 99 11/02/18 06:00 11/02/18 06:00 11/02/18 06:00 11/02/18 06:00 11/02/18 06:00 Oxygen Flow Rate (L/min) 2 Oxygen Delivery Method Mechanical Ventilator Weight: 68.5 kg Body Mass Index (BMI) 24.0 Finger Stick Blood Glucose 101 Intake and Output for Last 24 Hours 10/31/18 11/01/18 11/02/18 23:59 23:59 23:59 Intake Total 2488 / 2488 3441.9 / 3441.9 1808.1 / 1808.1 Output Total 700 / 700 700 / 700 300 / 300 Balance 1788 / 1788 2741.9 / 2741.9 1508.1 / 1508.1 Labs (Last 48 Hours) 10/31/18 11/01/18 11/01/18 16:57 00:18 04:15 WBC 8.7 RBC 3.48 L Hgb 10.0 L Hct 32.8 L MCV 94.3 MCH 28.7 MCHC 30.5 L RDW 13.4 RDW Differential 43.9 Plt Count 136 L MPV 9.9 Immature Gran % (Auto) 0.200 Neut % (Auto) 69.5 Lymph % (Auto) 20.5 [place] % (Auto) 8.3 Eos % (Auto) 1.3 Baso % (Auto) 0.2 Absolute Neuts (auto) 6.1 Absolute Lymphs (auto) 1.78 Total Counted Not Reportable Differential Comment Specimen Type Sample Site pH Bicarbonate Actual POC Total CO2 Base Excess O2 Saturation O2 % ABG pCO2 ABG pO2 Royal Test O2 Delivery Device Vent Mode POC PEEP POC Pressure Suppt Blood Gas Notified Whom Blood Gas Notified Time Sodium Potassium Chloride Carbon Dioxide Anion Gap BUN Creatinine Estim Creat Clear Calc Est GFR (MDRD) Af Amer Est GFR (MDRD) Non-Af BUN/Creatinine Ratio Glucose Calcium Phosphorus Magnesium POC Glucose 88 78 11/01/18 11/01/18 11/01/18 04:15 07:01 07:20 WBC RBC Hgb Hct MCV MCH MCHC RDW RDW Differential Plt Count MPV Immature Gran % (Auto) Neut % (Auto) Lymph % (Auto) [place] % (Auto) Eos % (Auto) Baso % (Auto) Absolute Neuts (auto) Absolute Lymphs (auto) Total Counted Differential Comment Specimen Type ART Sample Site R Radial pH 7.31 L Bicarbonate Actual 26.0 POC Total CO2 28 Base Excess 0 O2 Saturation 94 L O2 % 30 ABG pCO2 51.7 H ABG pO2 77 Royal Test NA O2 Delivery Device Vent Vent Mode CPAP PS POC PEEP 5 POC Pressure Suppt 5 Blood Gas Notified Whom ICU MD Blood Gas Notified Time 719 Sodium 145 Potassium 3.7 Chloride 112 H Carbon Dioxide 28.0 Anion Gap 5 BUN 16 Creatinine 0.76 Estim Creat Clear Calc 64.58 Est GFR (MDRD) Af Amer 98 Est GFR (MDRD) Non-Af 81 BUN/Creatinine Ratio 20.9 H Glucose 89 Calcium 7.8 L Phosphorus 1.0 L* Magnesium 1.5 L POC Glucose 90 11/01/18 11/01/18 11/01/18 11:36 15:55 17:49 WBC RBC Hgb Hct MCV MCH MCHC RDW RDW Differential Plt Count MPV Immature Gran % (Auto) Neut % (Auto) Lymph % (Auto) [place] % (Auto) Eos % (Auto) Baso % (Auto) Absolute Neuts (auto) Absolute Lymphs (auto) Total Counted Differential Comment Specimen Type Sample Site pH Bicarbonate Actual POC Total CO2 Base Excess O2 Saturation O2 % ABG pCO2 ABG pO2 Royal Test O2 Delivery Device Vent Mode POC PEEP POC Pressure Suppt Blood Gas Notified Whom Blood Gas Notified Time Sodium 141 Potassium 4.1 Chloride 112 H Carbon Dioxide 25.0 Anion Gap 4 L BUN 16 Creatinine 0.65 Estim Creat Clear Calc 75.50 Est GFR (MDRD) Af Amer 118 Est GFR (MDRD) Non-Af 98 BUN/Creatinine Ratio 24.6 H Glucose 90 Calcium 7.5 L Phosphorus 3.1 Magnesium 2.0 POC Glucose 87 119 H 11/02/18 11/02/18 11/02/18 00:38 01:18 01:18 WBC 7.5 RBC 3.70 L Hgb 10.8 L Hct 33.4 L MCV 90.3 MCH 29.2 MCHC 32.3 RDW 13.4 RDW Differential 43.0 Plt Count 138 L MPV 10.2 Immature Gran % (Auto) 0.100 Neut % (Auto) 90.6 H Lymph % (Auto) 8.1 L [place] % (Auto) 1.1 Eos % (Auto) 0.0 Baso % (Auto) 0.1 Absolute Neuts (auto) 6.8 Absolute Lymphs (auto) 0.60 L Total Counted Not Reportable Differential Comment SCANNED Specimen Type Sample Site pH Bicarbonate Actual POC Total CO2 Base Excess O2 Saturation O2 % ABG pCO2 ABG pO2 Royal Test O2 Delivery Device Vent Mode POC PEEP POC Pressure Suppt Blood Gas Notified Whom Blood Gas Notified Time Sodium 140 Potassium 4.0 Chloride 111 H Carbon Dioxide 21.0 Anion Gap 8 BUN 21 H Creatinine 0.66 Estim Creat Clear Calc 74.36 Est GFR (MDRD) Af Amer 116 Est GFR (MDRD) Non-Af 96 BUN/Creatinine Ratio 31.7 H Glucose 185 H Calcium 7.9 L Phosphorus 2.8 Magnesium 2.0 POC Glucose 174 H 11/02/18 06:14 WBC RBC Hgb Hct MCV MCH MCHC RDW RDW Differential Plt Count MPV Immature Gran % (Auto) Neut % (Auto) Lymph % (Auto) [place] % (Auto) Eos % (Auto) Baso % (Auto) Absolute Neuts (auto) Absolute Lymphs (auto) Total Counted Differential Comment Specimen Type ART Sample Site R Radial pH 7.30 L Bicarbonate Actual 21.6 L POC Total CO2 23 Base Excess -5 L O2 Saturation 98 O2 % 30 ABG pCO2 44.4 ABG pO2 111 H Royal Test POS O2 Delivery Device Vent Vent Mode CPAP PS POC PEEP 5 POC Pressure Suppt 5 Blood Gas Notified Whom ICU MD Blood Gas Notified Time Sodium Potassium Chloride Carbon Dioxide Anion Gap BUN Creatinine Estim Creat Clear Calc Est GFR (MDRD) Af Amer Est GFR (MDRD) Non-Af BUN/Creatinine Ratio Glucose Calcium Phosphorus Magnesium POC Glucose Clinical Impression(s) from Imaging Studies Chest X-Ray 11/01/18 08:50 IMPRESSION: Stable interval exam Electronically Signed: Brian Funez DO at 10:36 EDT Tel , Service support , Medical Necessity - Tobacco Use Smoking Status: Former smoker Assessment/Plan All Active Problems (Last Reviewed 10/26/18 @ 13:16 by Lakisha Strickland) Acute and chronic respiratory failure with hypercapnia (Acute) Chronic obstructive pulmonary disease with acute exacerbation (Acute) Nocturnal leg cramps (Resolved) History of stroke (Resolved 02/03/17) History of non-ST elevation myocardial infarction (NSTEMI) (Resolved 02/03/17) History of pneumonia (Resolved) H/O: section (Resolved) History of lumpectomy (Resolved) History of cholecystectomy (Resolved) Hemorrhagic cerebrovascular accident (CVA) (Resolved) Metabolic encephalopathy (Resolved) Upper GI bleed (Resolved) Elevated serum creatinine (Acute) PRES (posterior reversible encephalopathy syndrome) (Resolved) Acute respiratory failure (Resolved) RECOMMENDATIONS: 1. Discontinue Precedex and fentanyl following extubation 2. Discontinue IV steroids tomorrow 3. Await sputum culture, hold on antibiotics for now 4. Discuss with family about goals of therapy 5. Extubate patient later this morning IMPRESSIONS: 1. Acute on chronic combined respiratory failure secondary to noncompliance Patient with multiple similar type of admissions over the last 6 months. Patient does respond to positive pressure ventilation, but following extubation has refused to continue BiPAP therapy despite multiple conversations about his necessity to deal with carbon dioxide. Patient did much better with ventilation today compared to yesterday. Clinical suspicion for hypophosphatemia leading to muscle fatigue. Patient continues to have no wheezing on exam and no infiltrate on chest x-ray. Will discontinue steroids tomorrow. Proceed with extubation. 2. Chronic systolic congestive heart failure/coronary artery disease/hypertension/hyperlipidemia Patient appears to be at her baseline at this time. Patient did have a recent echocardiogram showing an EF of 40 to 45% with stage I diastolic dysfunction and moderate global hypokinesis of the left ventricle. Patient is on medical therapy at this time. Okay to continue from my perspective. 3. CODE STATUS Patient continues to ask for aggressive measures despite noncompliance with noninvasive therapy to avoid future complications. Will discuss with patient's family at the bedside. Hospice measures are likely appropriate. 4. GERD/history of noncompliance/multiple surgeries/recurrent admissions Complicates care, management, recovery and prognosis. Okay to continue with PPI. TIME: 32 minutes critical care time spent addressing patient's acute on chronic respiratory failure, congestive heart failure, review of all data and collaboration with care team (5:45 AM to 6:45 AM) Code Visit 9xxxx: [id number] Critical care first hour
[2018-11-02 07:01] LABS: Bedside Glucose 158 mg/dL (70-110)
[2018-11-02] MEDS: 0.9% NaCl Peripheral Flush Adult/Peds IV (07:57)
[2018-11-02] MEDS: Famotidine 20 MG Tablet PO ×2 (10:22→21:07)
[2018-11-02] MEDS: Enoxaparin 40 MG/0.4 ML Syringe SC (10:22)
[2018-11-02 11:45] LABS: Bedside Glucose 151 mg/dL (70-110)
--- NOTE | 2018-11-02 15:49 | SLEEP ---
Met with patient, brother, and fiance. Home unit brought in was a ResMed S9 ASV (EPAP: 12/MIN PS 6/MAX PS 13) belonging to the fiance - not the Bilevel S mode the patient was last prescribed. I explained the difference between Obstructive Sleep Apnea and Central Sleep Apnea, as well as, Bilevel versus ASV therapy and why the patient should NOT be utilizing her fifelicity's ASV unit. I encouraged the patient's fiance to take the ASV unit back home for HIM to use (or follow up in the [facility] for assistance with compliance). The patient voiced understanding and was agreeable with the plan to use the hospital's BIPAP unit during her admission. I will work with [facility] to coordinate the patient being re-established on her prescribed home BIPAP therapy. She indicated that she previously failed to tolerate BIPAP therapy at home because the F10 Small Full Face mask leaked and she was having to over tighten it to control the leak causing skin breakdown on the bridge of her nose. I fit her with a DreamWear Full Face mask (Small Frame/Small Cushion) that will fit under the nose and left it for her to use when she gets set up by [facility] with her new BIPAP. Her insurance may require repeat Titration study before new DME can be covered due to previous trial failure to meet compliance. We will coordinate that if indicated as an outpatient upon discharge. This was communicated to the patient's ORDER CLERK Nolvia Boss who followed up with nurse Boyce & Dr. Duarte in ICU ~Gail Cochran, MPH, RPSGT
[2018-11-02] MEDS: Haloperidol Lactate 5 MG/ML Vial IV ×2 (16:12→23:27)
[2018-11-02 17:56] LABS: Bedside Glucose 151 mg/dL (70-110)
--- NOTE | 2018-11-02 19:26 | PCM.PROGNOTE ---
Subjective: Patient was seen and examined today, she was extubated earlier this morning, I talked with her briefly about her noncompliance with BiPAP, her family was asked to bring her BiPAP machine in and instead brought her boyfriends CPAP machine and it appears that it is possible she may have been using his machine and he was not using his own machine. - Physical Exam General: Alert, Oriented x3, Cooperative, No apparent distress, Well developed, Well nourished HEENT: Atraumatic, PERRLA, EOMI, Normocephalic Oral: Moist Mucosa Neck: Supple, Trachea Midline, Thyroid Normal Size and Texture Lungs: Clear to auscultation, No rhonchi, No wheeze, No rales, Diminished Cardiovascular: Regular rate, Regular Rhythm, Normal S1, Normal S2, No murmurs, No Ectopic Activity Abdomen: Bowel Sounds Present, Soft, Non Tender Extremities: No clubbing, No cyanosis, No edema, Capillary Refill Less than 3 Seconds Skin: No rashes, No breakdown Musculoskeletal: No Tenderness to Palpation of Joints or Extremities Neurological: Cranial nerves II-XII grossly intact, Neuro grossly intact, Sensory exam intact to light touch and pain, Coordination normal Psych/Mental Status: Normal Affect, Appropriate, Alert and oriented to time, place, person, mood and affect Vital Signs Temp Pulse Resp BP Pulse Ox 97.7 F L 89 21 H 117/59 L 97 11/02/18 19:00 11/02/18 19:23 11/02/18 19:00 11/02/18 19:00 11/02/18 19:00 Oxygen Flow Rate (L/min) 1 Oxygen Delivery Method Nasal Cannula Weight: 68.5 kg Body Mass Index (BMI) 24.0 Finger Stick Blood Glucose 101 Intake and Output for Last 24 Hours 10/31/18 11/01/18 11/02/18 23:59 23:59 23:59 Intake Total 2488 / 2488 3441.9 / 3441.9 2553.1 / 2553.1 Output Total 700 / 700 700 / 700 1025 / 1025 Balance 1788 / 1788 2741.9 / 2741.9 1528.1 / 1528.1 Laboratory Tests Past 24 Hrs 11/02/18 11/02/18 11/02/18 01:18 01:18 06:14 WBC 7.5 RBC 3.70 L Hgb 10.8 L Hct 33.4 L MCV 90.3 MCH 29.2 MCHC 32.3 RDW 13.4 RDW Differential 43.0 Plt Count 138 L MPV 10.2 Immature Gran % (Auto) 0.100 Neut % (Auto) 90.6 H Lymph % (Auto) 8.1 L [place] % (Auto) 1.1 Eos % (Auto) 0.0 Baso % (Auto) 0.1 Absolute Neuts (auto) 6.8 Absolute Lymphs (auto) 0.60 L Total Counted Not Reportable Differential Comment SCANNED Specimen Type ART Sample Site R Radial pH 7.30 L Bicarbonate Actual 21.6 L POC Total CO2 23 Base Excess -5 L O2 Saturation 98 O2 % 30 ABG pCO2 44.4 ABG pO2 111 H Royal Test POS O2 Delivery Device Vent Vent Mode CPAP PS POC PEEP 5 POC Pressure Suppt 5 Blood Gas Notified Whom ICU Sodium 140 Potassium 4.0 Chloride 111 H Carbon Dioxide 21.0 Anion Gap 8 BUN 21 H Creatinine 0.66 Estim Creat Clear Calc 74.36 Est GFR (MDRD) Af Amer 116 Est GFR (MDRD) Non-Af 96 BUN/Creatinine Ratio 31.7 H Glucose 185 H Calcium 7.9 L Phosphorus 2.8 Magnesium 2.0 POC Glucose 11/02/18 11/02/18 11/02/18 17:16 11:33 06:03 POC Glucose 151 H 151 H 158 H 11/02/18 00:38 POC Glucose 174 H Medical Necessity - Tobacco Use Smoking Status: Former smoker Assessment/Plan All Active Problems (Last Reviewed 10/26/18 @ 13:16 by Lakisha Strickland) Acute and chronic respiratory failure with hypercapnia (Acute) Chronic obstructive pulmonary disease with acute exacerbation (Acute) Nocturnal leg cramps (Resolved) History of stroke (Resolved 02/03/17) History of non-ST elevation myocardial infarction (NSTEMI) (Resolved 02/03/17) History of pneumonia (Resolved) H/O: section (Resolved) History of lumpectomy (Resolved) History of cholecystectomy (Resolved) Hemorrhagic cerebrovascular accident (CVA) (Resolved) Metabolic encephalopathy (Resolved) Upper GI bleed (Resolved) Elevated serum creatinine (Resolved) PRES (posterior reversible encephalopathy syndrome) (Resolved) Acute respiratory failure (Resolved) #1 acute on chronic combined respiratory failure secondary to noncompliance with BiPAP-patient will remain in the ICU tonight, it appears patient may not have a BiPAP machine at home, she will need one set up before she is discharged home. #2 pulmonary hypertension #3 noncompliance with medical regimen #4 obstructive sleep apnea #5 cerebrovascular disease #6 hypertension #7 elevated ammonia level-etiology unclear, ammonia level has not been rechecked since 10/30/2018, I will check the patient's ammonia level tomorrow Code Visit Inpatient E&M: [id number] Subs Hosp L2
[2018-11-02] MEDS: 0.9% Normal Saline 1,000 ML 50 ML IV (23:03)
[2018-11-03] VITALS (21 sets, daily range): BP systolic 93–162; BP diastolic 55–113; PULSE 54–106; RESP 12–25; TEMP 36.2–37; O2SAT 94–99
[2018-11-03 08:36] LABS: Bedside Glucose 135 mg/dL (70-110)
--- NOTE | 2018-11-03 09:31 | PCM.PN.INT ---
Subjective: Patient did okay overnight. Patient did require Haldol overnight to facilitate compliance with BiPAP therapy. Patient remains confused this morning, but is doing well on nasal cannula oxygen. Blood pressure has been elevated. General: Alert, Cooperative, No apparent distress, Confused, Disoriented, - - No conversational dyspnea. HEENT: Atraumatic, PERRLA, EOMI, Normocephalic, - - Slight scleral injection without icterus Oral: Moist Mucosa, No Gingival or Mucosal Lesions/ Ulcerations Neck: Supple, No JVD, No Nodes, Trachea Midline Lungs: No rhonchi, No wheeze, No rales, Diminished, - - Symmetric expansion. No dullness to percussion. Cardiovascular: Regular rate, Regular Rhythm, Normal S1, Normal S2, No murmurs, No rub noted, No Gallop Abdomen: Bowel Sounds Present, Soft, Non Tender, Non-Distended Extremities: No cyanosis, No edema, Capillary Refill Less than 3 Seconds, Clubbing Skin: - - No significant change compared to previous Musculoskeletal: No Tenderness to Palpation of Joints or Extremities, No Muscle Wasting Lymphatic: No Cervical, Supraclavicular, or Inguinal Adenopathy Neurological: Cranial nerves II-XII grossly intact, Neuro grossly intact, Motor Exam 5/5 strength throughout Psych/Mental Status: Alert and oriented to time, place, person, mood and affect Vital Signs Temp Pulse Resp BP Pulse Ox 37.0 C 98 20 H 141/81 H 96 11/03/18 08:00 11/03/18 08:00 11/03/18 08:00 11/03/18 08:00 11/03/18 08:00 Oxygen Flow Rate (L/min) 1 Oxygen Delivery Method Nasal Cannula Weight: 69 kg Body Mass Index (BMI) 24.0 Finger Stick Blood Glucose 101 Intake and Output for Last 24 Hours 11/01/18 11/02/18 11/03/18 23:59 23:59 23:59 Intake Total 3441.9 / 3441.9 2954.1 / 2954.1 348 / 348 Output Total 700 / 700 1575 / 1575 250 / 250 Balance 2741.9 / 2741.9 1379.1 / 1379.1 98 / 98 Labs (Last 48 Hours) 11/01/18 11/01/18 11/01/18 11:36 15:55 17:49 WBC RBC Hgb Hct MCV MCH MCHC RDW RDW Differential Plt Count MPV Immature Gran % (Auto) Neut % (Auto) Lymph % (Auto) [place] % (Auto) Eos % (Auto) Baso % (Auto) Absolute Neuts (auto) Absolute Lymphs (auto) Total Counted Differential Comment Specimen Type Sample Site pH Bicarbonate Actual POC Total CO2 Base Excess O2 Saturation O2 % ABG pCO2 ABG pO2 Royal Test O2 Delivery Device Vent Mode POC PEEP POC Pressure Suppt Blood Gas Notified Whom Sodium 141 Potassium 4.1 Chloride 112 H Carbon Dioxide 25.0 Anion Gap 4 L BUN 16 Creatinine 0.65 Estim Creat Clear Calc 75.50 Est GFR (MDRD) Af Amer 118 Est GFR (MDRD) Non-Af 98 BUN/Creatinine Ratio 24.6 H Glucose 90 Calcium 7.5 L Phosphorus 3.1 Magnesium 2.0 Ammonia POC Glucose 87 119 H 11/02/18 11/02/18 11/02/18 00:38 01:18 01:18 WBC 7.5 RBC 3.70 L Hgb 10.8 L Hct 33.4 L MCV 90.3 MCH 29.2 MCHC 32.3 RDW 13.4 RDW Differential 43.0 Plt Count 138 L MPV 10.2 Immature Gran % (Auto) 0.100 Neut % (Auto) 90.6 H Lymph % (Auto) 8.1 L [place] % (Auto) 1.1 Eos % (Auto) 0.0 Baso % (Auto) 0.1 Absolute Neuts (auto) 6.8 Absolute Lymphs (auto) 0.60 L Total Counted Not Reportable Differential Comment SCANNED Specimen Type Sample Site pH Bicarbonate Actual POC Total CO2 Base Excess O2 Saturation O2 % ABG pCO2 ABG pO2 Royal Test O2 Delivery Device Vent Mode POC PEEP POC Pressure Suppt Blood Gas Notified Whom Sodium 140 Potassium 4.0 Chloride 111 H Carbon Dioxide 21.0 Anion Gap 8 BUN 21 H Creatinine 0.66 Estim Creat Clear Calc 74.36 Est GFR (MDRD) Af Amer 116 Est GFR (MDRD) Non-Af 96 BUN/Creatinine Ratio 31.7 H Glucose 185 H Calcium 7.9 L Phosphorus 2.8 Magnesium 2.0 Ammonia POC Glucose 174 H 11/02/18 11/02/18 11/02/18 06:03 06:14 11:33 WBC RBC Hgb Hct MCV MCH MCHC RDW RDW Differential Plt Count MPV Immature Gran % (Auto) Neut % (Auto) Lymph % (Auto) [place] % (Auto) Eos % (Auto) Baso % (Auto) Absolute Neuts (auto) Absolute Lymphs (auto) Total Counted Differential Comment Specimen Type ART Sample Site R Radial pH 7.30 L Bicarbonate Actual 21.6 L POC Total CO2 23 Base Excess -5 L O2 Saturation 98 O2 % 30 ABG pCO2 44.4 ABG pO2 111 H Royal Test POS O2 Delivery Device Vent Vent Mode CPAP PS POC PEEP 5 POC Pressure Suppt 5 Blood Gas Notified Whom ICU Sodium Potassium Chloride Carbon Dioxide Anion Gap BUN Creatinine Estim Creat Clear Calc Est GFR (MDRD) Af Amer Est GFR (MDRD) Non-Af BUN/Creatinine Ratio Glucose Calcium Phosphorus Magnesium Ammonia POC Glucose 158 H 151 H 11/02/18 11/03/18 11/03/18 17:16 04:25 08:25 WBC RBC Hgb Hct MCV MCH MCHC RDW RDW Differential Plt Count MPV Immature Gran % (Auto) Neut % (Auto) Lymph % (Auto) [place] % (Auto) Eos % (Auto) Baso % (Auto) Absolute Neuts (auto) Absolute Lymphs (auto) Total Counted Differential Comment Specimen Type Sample Site pH Bicarbonate Actual POC Total CO2 Base Excess O2 Saturation O2 % ABG pCO2 ABG pO2 Royal Test O2 Delivery Device Vent Mode POC PEEP POC Pressure Suppt Blood Gas Notified Whom Sodium Potassium Chloride Carbon Dioxide Anion Gap BUN Creatinine Estim Creat Clear Calc Est GFR (MDRD) Af Amer Est GFR (MDRD) Non-Af BUN/Creatinine Ratio Glucose Calcium Phosphorus Magnesium Ammonia 32.0 POC Glucose 151 H 135 H Medical Necessity - Tobacco Use Smoking Status: Former smoker Assessment/Plan All Active Problems (Last Updated 11/02/18 @ 19:29 by César Cagle DO) Acute and chronic respiratory failure with hypercapnia (Acute) Chronic obstructive pulmonary disease with acute exacerbation (Acute) Nocturnal leg cramps (Resolved) History of stroke (Resolved 02/03/17) History of non-ST elevation myocardial infarction (NSTEMI) (Resolved 02/03/17) History of pneumonia (Resolved) H/O: section (Resolved) History of lumpectomy (Resolved) History of cholecystectomy (Resolved) Hemorrhagic cerebrovascular accident (CVA) (Resolved) Metabolic encephalopathy (Resolved) Upper GI bleed (Resolved) Elevated serum creatinine (Resolved) PRES (posterior reversible encephalopathy syndrome) (Resolved) Acute respiratory failure (Resolved) RECOMMENDATIONS: 1. Initiate baseline Coreg therapy 2. Discontinue IV fluids 3. Continue BiPAP therapy with sleep 4. Continue to address with family about goals of therapy 5. Okay to leave the intensive care unit from my perspective IMPRESSIONS: 1. Acute on chronic combined respiratory failure secondary to noncompliance Patient with multiple similar type of admissions over the last 6 months. Patient does respond to positive pressure ventilation, but following extubation has refused to continue BiPAP therapy despite multiple conversations about his necessity to deal with carbon dioxide. Patient is tolerated extubation well. Patient did require Haldol to facilitate BiPAP therapy overnight. Continue to wean oxygen as tolerated. 2. Chronic systolic congestive heart failure/coronary artery disease/hypertension/hyperlipidemia Patient appears to be at her baseline at this time. Patient did have a recent echocardiogram showing an EF of 40 to 45% with stage I diastolic dysfunction and moderate global hypokinesis of the left ventricle. Patient is on medical therapy at this time. Reinitiate patient's baseline caloric therapy 3. CODE STATUS Patient continues to ask for aggressive measures despite noncompliance with noninvasive therapy to avoid future complications. Will discuss with patient's family at the bedside. Hospice measures are likely appropriate. 4. GERD/history of noncompliance/multiple surgeries/recurrent admissions Complicates care, management, recovery and prognosis. Okay to continue with PPI. Code Visit Inpatient E&M: [id number] [facility] L3
--- NOTE | 2018-11-03 09:35 | CASEMGMT ---
FINESSE LALA Note: participated in ICU interdisciplinary rounds. Gail from sleep lab is working on new Bipap machine for patient on discharge- per RT, will be ordered on dc and pt will have within 24 hours. Pt is sitting in chair, on NC, able to participate in ICU rounds. FINESSE LALA returned to speak with her re: SNF recommendation on dc for respiratory management, strengthening and f/u. Pt is agreeable to TCU, but states her family won't let me go to a fpc. FINESSE LALA had lengthy conversation re: difference between skilled care @ fpc and rodent exterminator care. Pt is agreeable to consider TCU. [facility] to [facility]. They have bed available tomorrow, pt's name is on the list. -Brother, S.O. and pt's son were in room when RNSPIKE returned to speak with pt. Explained plan for TCU on dc and they are all in agreement with plan. -IBETH Torres updated on above. -Call to Carla Hansen RN, CM to update on dc plan and Home Bipap. Lali HILLN RN ACM
[2018-11-03] MEDS: Carvedilol 12.5 MG Tablet PO ×2 (10:33→21:36)
[2018-11-03] MEDS: Enoxaparin 40 MG/0.4 ML Syringe SC (10:33)
[2018-11-03] MEDS: Famotidine 20 MG Tablet PO ×2 (10:33→21:36)
[2018-11-03 12:01] LABS: Bedside Glucose 172 mg/dL (70-110)
--- NOTE | 2018-11-03 14:40 | PCM.PROGNOTE ---
Subjective: Pt is tolerating bipap at night, however she did utilize prn haldol. No increased SOB. Pt currently satting well at less than home O2 level (1 vs 2 lpm). Non productive, rare cough. No fever/chills. No LE edema. - Physical Exam General: Alert, Oriented x3, Cooperative HEENT: Atraumatic, PERRLA, EOMI, Normocephalic Neck: Supple, No JVD, Negative Carotid Bruits Lungs: Diminished - severely Cardiovascular: Regular rate, No murmurs Abdomen: Bowel Sounds Present, Soft, Non Tender Extremities: No edema, Capillary Refill Less than 3 Seconds Skin: No rashes, No breakdown Musculoskeletal: No Tenderness to Palpation of Joints or Extremities Neurological: Cranial nerves II-XII grossly intact Psych/Mental Status: Normal Affect, Appropriate, Alert and oriented to time, place, person, mood and affect Vital Signs Temp Pulse Resp BP Pulse Ox 97.4 F L 91 16 146/59 H 94 11/03/18 13:49 11/03/18 13:49 11/03/18 13:49 11/03/18 13:49 11/03/18 13:49 Oxygen Flow Rate (L/min) 1 Oxygen Delivery Method Nasal Cannula Weight: 152 lb 1.903 oz Body Mass Index (BMI) 24.0 Finger Stick Blood Glucose 101 Intake and Output for Last 24 Hours 11/01/18 11/02/18 11/03/18 23:59 23:59 23:59 Intake Total 3441.9 / 3441.9 2954.1 / 2954.1 746 / 746 Output Total 700 / 700 1575 / 1575 500 / 500 Balance 2741.9 / 2741.9 1379.1 / 1379.1 246 / 246 Laboratory Tests Past 24 Hrs 11/03/18 04:25 Ammonia 32.0 POC Glucose 11/03/18 11/03/18 11/02/18 11:57 08:25 17:16 POC Glucose 172 H 135 H 151 H Medical Necessity - Tobacco Use Smoking Status: Former smoker Assessment/Plan All Active Problems (Last Updated 11/02/18 @ 19:29 by César Cagle DO) Acute and chronic respiratory failure with hypercapnia (Acute) Chronic obstructive pulmonary disease with acute exacerbation (Acute) Nocturnal leg cramps (Resolved) History of stroke (Resolved 02/03/17) History of non-ST elevation myocardial infarction (NSTEMI) (Resolved 02/03/17) History of pneumonia (Resolved) H/O: section (Resolved) History of lumpectomy (Resolved) History of cholecystectomy (Resolved) Hemorrhagic cerebrovascular accident (CVA) (Resolved) Metabolic encephalopathy (Resolved) Upper GI bleed (Resolved) Elevated serum creatinine (Resolved) PRES (posterior reversible encephalopathy syndrome) (Resolved) Acute respiratory failure (Resolved) 1. Acute on chronic hypoxic and hypercapnic respiratory failure secondary to noncompliance with home BiPAP, complicated by pulmonary hypertension, COPD, obstructive sleep apnea, chronic systolic congestive heart failure-continue BiPAP at night, attempt to use without Haldol. 2. Elevated ammonia-resolved. Etiology unclear. 3. Hypertension - mildly elevated. trend. 4. GERD - on ppi DC planning: TCU tomorrow. Must tolerate bipap without haldol. DVT ppx: lovenox This patient was seen by Booker Parson PA-C under the supervision of Dr. Cagle.
[2018-11-03] MEDS: Acetaminophen 325 MG Tablet 650 MG PO (16:22)
[2018-11-03 17:00] LABS: Bedside Glucose 122 mg/dL (70-110)
--- NOTE | 2018-11-03 18:09 | NURSING ---
Reviewed and agreed on all charting with Lucrecia Lomeli RN
[2018-11-04] VITALS (19 sets, daily range): BP systolic 134–152; BP diastolic 62–82; PULSE 69–95; RESP 12–26; TEMP 36.5–37.2; O2SAT 90–100
--- NOTE | 2018-11-04 08:15 | NURSING ---
TOOLING INSPECTOR called this RN stating that pt was very sleepy and would not wake up to eat breakfast. Into room. Vitals stable, sats 100%, noted to be on 4L NC instead of 2L like she normally wears. Pt more confused than normal. BiPap placed back on. Pt is able to say she is at [place] & that her birthday is in [birth year].
--- NOTE | 2018-11-04 08:22 | PN_ITS ---
Subjective: Patient transferred out of the intensive care unit yesterday. Patient did use her BiPAP overnight. Patient remains confused, but is denying any pain at this time. No overnight issues were reported. No hemodynamic instability has been reported. - Physical Exam General: Alert, No apparent distress, Confused, Disoriented, - - Some hoarseness noted. HEENT: Atraumatic, PERRLA, EOMI, Normocephalic, - - Scleral injection without icterus Oral: Moist Mucosa, No Gingival or Mucosal Lesions/ Ulcerations Neck: Supple, No JVD, No Nodes, Trachea Midline Lungs: No rhonchi, No rales, Diminished, Wheezes, - - Symmetric expansion. No dullness to percussion. Cardiovascular: Regular rate, Regular Rhythm, Normal S1, Normal S2, No murmurs, No rub noted, No Gallop Abdomen: Bowel Sounds Present, Soft, Non Tender, Non-Distended Extremities: No cyanosis, No edema, Capillary Refill Less than 3 Seconds, Clubbing Skin: - - No significant change compared to previous Musculoskeletal: No Tenderness to Palpation of Joints or Extremities Lymphatic: No Cervical, Supraclavicular, or Inguinal Adenopathy Neurological: Cranial nerves II-XII grossly intact, Neuro grossly intact, Motor Exam 5/5 strength throughout Psych/Mental Status: Flat Affect, Impulsive Vital Signs Temp Pulse Resp BP Pulse Ox 36.5 C L 81 12 152/71 H 94 11/04/18 03:30 11/04/18 07:00 11/04/18 03:30 11/04/18 03:30 11/04/18 03:30 Oxygen Flow Rate (L/min) 2 Oxygen Delivery Method Bi-pap Weight: 67.6 kg Body Mass Index (BMI) 24.0 Finger Stick Blood Glucose 101 Intake and Output for Last 24 Hours 11/02/18 11/03/18 11/04/18 23:59 23:59 23:59 Intake Total 2954.1 / 2954.1 866 / 866 Output Total 1575 / 1575 500 / 500 Balance 1379.1 / 1379.1 366 / 366 POC Glucose 11/03/18 11/03/18 11/03/18 16:20 11:57 08:25 POC Glucose 122 H 172 H 135 H Medical Necessity - Tobacco Use Smoking Status: Former smoker Assessment/Plan All Active Problems (Last Updated 11/02/18 @ 19:29 by César Cagle, ) Acute and chronic respiratory failure with hypercapnia (Acute) Chronic obstructive pulmonary disease with acute exacerbation (Acute) Nocturnal leg cramps (Resolved) History of stroke (Resolved 02/03/17) History of non-ST elevation myocardial infarction (NSTEMI) (Resolved 02/03/17) History of pneumonia (Resolved) H/O: section (Resolved) History of lumpectomy (Resolved) History of cholecystectomy (Resolved) Hemorrhagic cerebrovascular accident (CVA) (Resolved) Metabolic encephalopathy (Resolved) Upper GI bleed (Resolved) Elevated serum creatinine (Resolved) PRES (posterior reversible encephalopathy syndrome) (Resolved) Acute respiratory failure (Resolved) RECOMMENDATIONS: 1. Continue baseline Coreg therapy 2. Wean oxygen as tolerated 3. Continue BiPAP therapy with sleep 4. Continue to address with family about goals of therapy 5. Walking oximetry prior to discharge 6. Increase activity as tolerated IMPRESSIONS: 1. Acute on chronic combined respiratory failure secondary to noncompliance Patient with multiple similar type of admissions over the last 6 months. Patient does respond to positive pressure ventilation, but following extubation has refused to continue BiPAP therapy despite multiple conversations about his necessity to deal with carbon dioxide. Patient has tolerated BiPAP nightly x2 nights. Continue to wean oxygen as tolerated. Increase activity. Patient may require short rehab stay given multiple admissions. Patient does have some hoarseness, but this would be expected given recurrent intubations. 2. Chronic systolic congestive heart failure/coronary artery disease/hypertension/hyperlipidemia Patient appears to be at her baseline at this time. Patient did have a recent echocardiogram showing an EF of 40 to 45% with stage I diastolic dysfunction and moderate global hypokinesis of the left ventricle. Patient is o n medical therapy at this time. Reinitiate patient's baseline caloric therapy 3. CODE STATUS Patient continues to ask for aggressive measures despite noncompliance with noninvasive therapy to avoid future complications. Will discuss with patient's family at the bedside. Hospice measures are likely appropriate. 4. GERD/history of noncompliance/multiple surgeries/recurrent admissions Complicates care, management, recovery and prognosis. Okay to continue with PPI. Code Visit Inpatient E&M: 76530 Subs Hosp L2
[2018-11-04] MEDS: Ipratropium/Albuterol Sulfate 3 ML AMPUL.NEB INHALATION ×3 (09:05→19:41)
--- NOTE | 2018-11-04 10:06 | RAD_ITS ---
STUDY: X-RAY CHEST REASON FOR EXAM: Female, 63 years old. Cough. Respiratory failure. TECHNIQUE: PA and lateral views of the chest. COMPARISON: 1 view of the chest dated November 01, 2018. FINDINGS: The patient has it been extubated. The endotracheal tube has been discontinued. There is significant hyperinflation. The lungs appear stable and clear. There is no pleural effusion. There is no pneumothorax. There is subtle blunting of bilateral posterior costophrenic angles potentially representing small bibasilar pleural effusions. The pulmonary arteries are prominent centrally with rapid tapering suggesting pulmonary artery hypertension. Normal size heart. Normal visualized aortic arch and descending thoracic aorta. There is mild diffuse demineralization without evident acute osseous abnormality. There is no demonstrated abnormality of the visualized soft tissue structures of the upper abdomen. RAD/Chest PA and Lateral IMPRESSION: Interval extubation and removal of nasogastric tube. Stigmata of COPD. No focal alveolar opacification to suggest pneumonia. No pneumothorax. Potential tiny bibasilar pleural effusions. Pulmonary artery findings suggesting pulmonary artery hypertension. Diffuse demineralization without evident acute osseous abnormality. Electronically Signed: Joey Gibson MD at 12:43 EDT , Service support ,
--- NOTE | 2018-11-04 10:59 | CASEMGMT ---
Patient is not ready for discharge today. IBETH called Jackie in TCU and let her know patient is not ready today, but possibly over the weekend. IBETH put a green sheet on patient's chart. Plan: [facility] TCU under skilled level of care. Farzaneh MALHOTRA MSW
[2018-11-04] MEDS: Enoxaparin 40 MG/0.4 ML Syringe SC (11:38)
[2018-11-04] MEDS: Famotidine 20 MG Tablet PO ×2 (11:42→21:53)
[2018-11-04] MEDS: Carvedilol 12.5 MG Tablet PO ×2 (11:42→21:53)
--- NOTE | 2018-11-04 12:14 | NURSING ---
This RN taking over care at this time
--- NOTE | 2018-11-04 12:53 | PCM.PROGNOTE ---
Subjective: Pt very confused this AM. More SOB as well. She has increased work of breathing. A/O x 2 only. Family is very concerned that she looks worse. When asked what is bothering her today she says everything and cannot more specifically articulate what is wrong. She is coughing. She is afebrile. She appears anxious and struggling with breathing regardless of the bipap. - Physical Exam General: Alert, Oriented x3, Cooperative HEENT: Atraumatic, PERRLA, EOMI, Normocephalic Neck: Supple, No JVD, Negative Carotid Bruits Lungs: Diminished, Rales - RL base Cardiovascular: Regular rate, No murmurs Abdomen: Bowel Sounds Present, Soft, Non Tender Extremities: No edema, Capillary Refill Less than 3 Seconds Skin: No rashes, No breakdown Musculoskeletal: No Tenderness to Palpation of Joints or Extremities Neurological: Cranial nerves II-XII grossly intact Psych/Mental Status: Normal Affect, Appropriate, Alert and oriented to time, place, person, mood and affect Vital Signs Temp Pulse Resp BP Pulse Ox 97.9 F 87 20 H 136/62 H 94 11/04/18 11:31 11/04/18 11:31 11/04/18 11:31 11/04/18 11:31 11/04/18 11:31 Oxygen Flow Rate (L/min) 2 Oxygen Delivery Method Nasal Cannula Weight: 149 lb 0.52 oz Body Mass Index (BMI) 24.0 Finger Stick Blood Glucose 101 Intake and Output for Last 24 Hours 11/02/18 11/03/18 11/04/18 23:59 23:59 23:59 Intake Total 2954.1 / 2954.1 866 / 866 120 / 120 Output Total 1575 / 1575 500 / 500 Balance 1379.1 / 1379.1 366 / 366 120 / 120 POC Glucose 11/03/18 16:20 POC Glucose 122 H Medical Necessity - Tobacco Use Smoking Status: Former smoker Assessment/Plan All Active Problems (Last Updated 11/02/18 @ 19:29 by César Cagle DO) Acute and chronic respiratory failure with hypercapnia (Acute) Chronic obstructive pulmonary disease with acute exacerbation (Acute) Nocturnal leg cramps (Resolved) History of stroke (Resolved 02/03/17) History of non-ST elevation myocardial infarction (NSTEMI) (Resolved 08/02/17) History of pneumonia (Resolved) H/O: section (Resolved) History of lumpectomy (Resolved) History of cholecystectomy (Resolved) Hemorrhagic cerebrovascular accident (CVA) (Resolved) Metabolic encephalopathy (Resolved) Upper GI bleed (Resolved) Elevated serum creatinine (Resolved) PRES (posterior reversible encephalopathy syndrome) (Resolved) Acute respiratory failure (Resolved) 1. Acute on chronic hypoxic and hypercapnic respiratory failure secondary to noncompliance with home BiPAP, complicated by pulmonary hypertension, COPD, obstructive sleep apnea, chronic systolic congestive heart failure-continue BiPAP at night, off haldol. More confused this AM. Repeat CXR reported as tiny effusion, no infiltrate. Add duonebs today. Check BMP in AM. She did have episodes of AM confusion in the ICU as well. However breathing appears more labored, will need monitored overnight. 2. Elevated ammonia-resolved. Etiology unclear. 3. Hypertension - mildly elevated. trend. 4. GERD - on ppi DC planning: TCU likely tomorrow. DVT ppx: lovenox This patient was seen by Booker Parson PA-C under the supervision of Dr. Cagle.
[2018-11-04] MEDS: Zolpidem Tartrate 5 MG Tablet PO (22:33)
[2018-11-05] VITALS (8 sets, daily range): BP systolic 124–133; BP diastolic 62–81; PULSE 74–87; RESP 12–18; TEMP 36.5–36.7; O2SAT 94–99
--- NOTE | 2018-11-05 01:36 | NURSING ---
patient refusing bipap tonight; remains on 2LNC
[2018-11-05 06:44] LABS: Absolute Lymphocyte Count 1.17 X10^3/ul (0.83-4.51); Absolute Neutrophil Count 3.4 X10^3/uL (2.0-7.7); Eosinophil# 0.09 X10^3/uL; Eosinophils% 1.7 % (0-5); Hematocrit 30.1 % (37-47); Hemoglobin 9.3 g/dl (12.0-15.0); Lymphocyte # 1.17 X10^3/ul (4.0); Lymphocyte % 22.3 % (19-41); Mean Corp Hgb Conc 30.9 g/gl (32-36); Mean Corpuscular Hgb 29.1 pg (27.0-32.0); Mean Corpuscular Volume 94.1 fL (81-99); Mean Platelet Vol. 10.2 fl (6.2-12.0); Monocyte# 0.61 X10^3/uL; Monocyte% 11.6 % (0-10); Neutrophil # 3.36 X10^3/uL (2.7-7.7); Platelet Count 138 K/mm3 (150-450); RBC Distribution Width CV 13.7 % (11.6-14.6); RBC Distribution Width SD 47.2 fl (35.1-43.9); White Blood Count 5.3 K/mm3 (4.4-11.0)
[2018-11-05 06:55] LABS: POSITIVE DIFFERENTIAL NO
[2018-11-05 06:56] LABS: POSITIVE COUNT NO; POSITIVE MORPHOLOGY NO
[2018-11-05] MEDS: Ipratropium/Albuterol Sulfate 3 ML AMPUL.NEB INHALATION ×2 (07:03→13:04)
[2018-11-05 07:11] LABS: Anion Gap 3 (5-15); BUN 10 mg/dL (7-18); BUN/Creat Ratio 20.2 RATIO (10-20); Calcium,Total 8.3 mg/dL (8.5-10.1); Chloride 105 mmol/L (98-107); EST Glomerular Filtration Rate 134 mL/min (>60); Est Glom Filt Rate - Afr Amer 162 mL/min (>60); Estimated Creatinine Clearance 98.16 ml/min; Glucose 85 mg/dL (74-106); Sodium Level 146 mmol/L (136-145)
--- NOTE | 2018-11-05 07:57 | PN_ITS ---
Subjective: Patient did okay overnight. Patient was compliant with BiPAP therapy. Patient's mentation appears to be slightly improved today. Still requiring low- dose nasal cannula oxygen to maintain saturations. Patient denies any cough. - Physical Exam General: Alert, Cooperative, No apparent distress, Disoriented, - - No conversational dyspnea. Slower to respond. HEENT: Atraumatic, PERRLA, EOMI, Normocephalic, - - Symmetric expansion. Slight scleral injection without icterus Oral: Moist Mucosa, No Gingival or Mucosal Lesions/ Ulcerations Neck: Supple, No JVD, No Nodes, Trachea Midline Lungs: No rhonchi, No wheeze, No rales, Diminished, - - Symmetric expansion. No dullness to percussion. Cardiovascular: Regular rate, Regular Rhythm, Normal S1, Normal S2, No murmurs, No rub noted, No Gallop Abdomen: Bowel Sounds Present, Soft, Non Tender, Non-Distended Extremities: No cyanosis, Capillary Refill Less than 3 Seconds, Clubbing, Edema - Trace lower extremity Skin: - - No significant change compared to previous Musculoskeletal: No Tenderness to Palpation of Joints or Extremities Lymphatic: No Cervical, Supraclavicular, or Inguinal Adenopathy Neurological: Cranial nerves II-XII grossly intact, Neuro grossly intact, Motor Exam 5/5 strength throughout Psych/Mental Status: Flat Affect, Impulsive Vital Signs Temp Pulse Resp BP Pulse Ox 36.5 C L 74 18 133/81 H 94 11/05/18 03:50 11/05/18 07:00 11/05/18 03:50 11/05/18 03:50 11/05/18 03:50 Oxygen Flow Rate (L/min) 2 Oxygen Delivery Method Nasal Cannula Weight: 66.1 kg Body Mass Index (BMI) 24.0 Finger Stick Blood Glucose 101 Intake and Output for Last 24 Hours 11/03/18 11/04/18 11/05/18 23:59 23:59 23:59 Intake Total 866 / 866 340 / 340 30 / 30 Output Total 500 / 500 200 / 200 Balance 366 / 366 140 / 140 30 / 30 Laboratory Tests Past 24 Hrs 11/05/18 11/05/18 06:00 06:00 WBC 5.3 RBC 3.20 L Hgb 9.3 L Hct 30.1 L MCV 94.1 MCH 29.1 MCHC 30.9 L RDW 13.7 RDW Differential 47.2 H Plt Count 138 L MPV 10.2 Immature Gran % (Auto) 0.400 Neut % (Auto) 64.0 Lymph % (Auto) 22.3 Bollinger % (Auto) 11.6 H Eos % (Auto) 1.7 Baso % (Auto) 0.0 Absolute Neuts (auto) 3.4 Absolute Lymphs (auto) 1.17 Total Counted Not Reportable Sodium 146 H Potassium 3.0 L Chloride 105 Carbon Dioxide 38.0 H Anion Gap 3 L BUN 10 Creatinine 0.50 L Estim Creat Clear Calc 98.16 Est GFR (MDRD) Af Amer 162 Est GFR (MDRD) Non-Af 134 BUN/Creatinine Ratio 20.2 H Glucose 85 Calcium 8.3 L Clinical Impression(s) from Imaging Studies Chest X-Ray 11/04/18 10:06 IMPRESSION: Interval extubation and removal of nasogastric tube. Stigmata of COPD. No focal alveolar opacification to suggest pneumonia. No pneumothorax. Potential tiny bibasilar pleural effusions. Pulmonary artery findings suggesting pulmonary artery hypertension. Diffuse demineralization without evident acute osseous abnormality. Electronically Signed: Joey Gibson MD at 12:43 EDT , Service support , Medical Necessity - Tobacco Use Smoking Status: Former smoker Assessment/Plan All Active Problems (Last Updated 11/02/18 @ 19:29 by César Cagle DO) Acute and chronic respiratory failure with hypercapnia (Acute) Chronic obstructive pulmonary disease with acute exacerbation (Acute) Nocturnal leg cramps (Resolved) History of stroke (Resolved 02/03/17) History of non-ST elevation myocardial infarction (NSTEMI) (Resolved 02/03/17) History of pneumonia (Resolved) H/O: section (Resolved) History of lumpectomy (Resolved) History of cholecystectomy (Resolved) Hemorrhagic cerebrovascular accident (CVA) (Resolved) Metabolic encephalopathy (Resolved) Upper GI bleed (Resolved) Elevated serum creatinine (Resolved) PRES (posterior reversible encephalopathy syndrome) (Resolved) Acute respiratory failure (Resolved) RECOMMENDATIONS: 1. Aggressive potassium repletion 2. Wean oxygen as tolerated 3. Continue BiPAP therapy with sleep 4. Continue to address with family about goals of therapy 5. Walking oximetry prior to discharge 6. Increase activity as tolerated IMPRESSIONS: 1. Acute on chronic combined respiratory failure secondary to noncompliance Patient with multiple similar type of admissions over the last 6 months. Patient does respond to positive pressure ventilation, but following extubation has refused to continue BiPAP therapy despite multiple conversations about his necessity to deal with carbon dioxide. Patient has tolerated BiPAP nightly x3 nights. Continue to wean oxygen as tolerated. Increase activity. Patient may require short rehab stay given multiple admissions. Patient does have some hoarseness, but this would be expected given recurrent intubations. 2. Chronic systolic congestive heart failure/coronary artery disease/hypertension/hyperlipidemia Patient appears to be at her baseline at this time. Patient did have a recent echocardiogram showing an EF of 40 to 45% with stage I diastolic dysfunction and moderate global hypokinesis of the left ventricle. Patient is on medical therapy at this time. Patient appears to be at her baseline at this time. 3. CODE STATUS Patient continues to ask for aggressive measures despite noncompliance with noninvasive therapy to avoid future complications. Will discuss with patient's family at the bedside. Hospice measures are likely appropriate. 4. GERD/history of noncompliance/multiple surgeries/recurrent admissions Complicates care, management, recovery and prognosis. Okay to continue with PPI. Code Visit Inpatient E&M: 96235 Subs Hosp L2
[2018-11-05] MEDS: Enoxaparin 40 MG/0.4 ML Syringe SC (08:36)
[2018-11-05] MEDS: Carvedilol 12.5 MG Tablet PO (08:36)
[2018-11-05] MEDS: Famotidine 20 MG Tablet PO (08:36)
[2018-11-05] MEDS: Potassium Chloride 10mEq/100mL 10 MEQ/100 ML IV.SOLN. 100 MEQ IV BOLUS ×2 (08:42→10:04)
[2018-11-05] MEDS: 0.9% NaCl Peripheral Flush Adult/Peds IV (08:42)
--- NOTE | 2018-11-05 10:26 | PCM.EXTCARCO ---
- Diet 11/02/18 15:06 Diet: Regular Diet Food consistency:: Soft Liquid Consistency:: [place] Thick Is pt able to select menu?: No Diet Comments: Supervision w/ assist; cut into bite sized; straw ok; seated in chair - Routine Orders/Code Status Suppository Type: Dulcolax 10mg Suppository Frequency: Daily PRN O2 Liters per Minute: 2 O2 Frequency: Continuous Keep PO Greater than or Equal to (%): 89 Routine Lab Work: CBC - 5 days, BMP - tomorrow Code Status: Full Code - Wound(s) lt hip Wound Type: Abrasion - Therapies Physical Therapy: Eval and Treat Occupational Therapy: Eval and Treat - Problem/Diagnosis (1) Acute and chronic respiratory failure with hypercapnia Status: Acute Current Visit: No (2) CO2 narcosis Status: Acute Current Visit: Yes (3) Pulmonary HTN Status: Chronic Current Visit: Yes (4) GERD (gastroesophageal reflux disease) Status: Chronic Current Visit: Yes (5) Anxiety Status: Chronic Current Visit: No (6) COPD (chronic obstructive pulmonary disease) Status: Chronic Current Visit: No (7) Heart failure with reduced ejection fraction Status: Chronic Current Visit: No (8) History of DVT of lower extremity Status: Chronic Comment: Rt lower extremity pinky vein Current Visit: No (9) Hyperlipidemia Status: Chronic Current Visit: No (10) Hypertension Status: Chronic Current Visit: No (11) TIO (obstructive sleep apnea) Status: Chronic Current Visit: No (12) History of stroke Status: Resolved Comment: Right occipital lobe and left posterior superior parietal lobe per CT;later determined as hemorrhagic per MRI developed NSTEMI shortly after but no intervention d/t GI bleed Current Visit: No - Allergies/Procedures Done in Hospital Allergies/Adverse Reactions: Allergies tetanus and diphtheria toxoids [tetanus & diphtheria toxoids] Allergy (Verified 10/30/18 22:40) Hives Procedures: Intubation - Type of Care/Length of Stay Estimated LOS: Convalescent Care Less Than 30 days Type of Care Needed: Skilled Rehab Potential: Fair Prognosis: Fair - Additional Orders/Day of Discharge Day of Discharge: 11/05/18 - Dietary and Speech Recommendations Dietitian Recommendations/Changes: Rec diet change cardiac/low sodium diet- consistency per CUSTOMER DEVELOPMENT MANAGER - Follow Up Care Primary Care Physician: Glenn Ulloa MD [Primary Care Provider] - Please follow up with your Primary Care Physician in: 2 weeks Please Follow Up With: Mike Duarte MD When: 2 weeks Please Follow Up With: Shahzad Long MD When: as directed
--- NOTE | 2018-11-05 11:28 | NURSING ---
report called to Cynthia KILPATRICK in TCU. per Cynthia, bed on TCU will not be available until after 4pm.
--- NOTE | 2018-11-05 12:08 | DS.PCM_ITS ---
Discharge Date and Diagnosis - Problem List Patient Problems: Active and Suspected Problems (Last Updated 11/02/18 @ 19:29 by César Cagle DO) CO2 narcosis (Acute) Date of Admission: 10/31/18 Date of Discharge: 11/05/18 - Primary Discharge Diagnosis Active and Suspected Problems (Last Updated 11/02/18 @ 19:29 by César Cagle DO) Acute on chronic hypoxic and hypercapnic respiratory failure secondary to BiPAP noncompliance CO2 narcosis (Acute) Elevated ammonia etiology unclear Hypertension GERD COPD Pulmonary hypertension Obstructive sleep apnea Chronic systolic congestive heart failure - Secondary Discharge Diagnosis Chronic Problems (Last Updated 11/02/18 @ 19:29 by César Cagle DO) Pulmonary HTN (Chronic) GERD (gastroesophageal reflux disease) (Chronic) Hypotension arterial (Chronic) Pharyngitis (Chronic) Dyspnea on exertion (Chronic) TIO (obstructive sleep apnea) (Chronic) History of ETOH abuse (Chronic) History of DVT of lower extremity (Chronic 02/11/17) Rt lower extremity pinky vein Acid-base disorder, mixed (Chronic) Insomnia (Chronic) Anxiety (Chronic) Hyperlipidemia (Chronic) Hypertension (Chronic) Daytime hypersomnia (Chronic) Heart failure with reduced ejection fraction (Chronic) Transaminitis (Chronic) COPD (chronic obstructive pulmonary disease) (Chronic) Hospital Course and Treatment Imaging Results: CT/Brain/Head without Contrast IMPRESSION: 1. No hemorrhage or acute intracranial disease identified. 2. Bilateral remote cerebral infarcts. 3. Chronic paranasal sinus disease. Individualized dose optimization techniques were used for this CT. RAD/Chest 1 View (Portable) IMPRESSION: New left lower lobe infiltrate, likely pneumonia which may be secondary to aspiration pneumonia COPD changes within the upper lobes RAD/Chest 1 View (Portable) IMPRESSION: Normal x-ray examination of the chest. RAD/Chest 1 View (Portable) IMPRESSION: Stable interval exam RAD/Chest PA and Lateral IMPRESSION: Interval extubation and removal of nasogastric tube. Stigmata of COPD. No focal alveolar opacification to suggest pneumonia. No pneumothorax. Potential tiny bibasilar pleural effusions. Pulmonary artery findings suggesting pulmonary artery hypertension. Diffuse demineralization without evident acute osseous abnormality. Consults: Gerald - Pulmonology Operations: None Procedures: None Summary of Care Provided: Hospital Course: The patient is a 63 year old F with past medical history of chronic hypoxic hypercapnic respiratory failure, supposed to be on BiPAP at home however noncompliant with home BiPAP therapy, COPD, pulmonary hypertension, chronic systolic congestive heart failure, obstructive sleep apnea, hypertension, hyperlipidemia GERD, who presented to the emergency room with confusion. She was acidotic with severe CO2 retention on ABG-7.1 pH and 130 PCO2. Her ammonia level was elevated at 60 as well. We do not have a clear source for the ammonia elevation. She was intubated in the emergency room and admitted to the ICU. With intubation and subsequent extubation and BiPAP therapy her CO2 levels improved dramatically and her altered mental status improved. She did continue to have morning confusion, and would become more lucid throughout the day. At times she needed Ambien to help sleep and struggled with BiPAP. By the end of her admission she was able to tolerate using it overnight. The patient had lost her home BiPAP machine as she was not using it. She had been intermittently using her boyfriend's BiPAP machine who settings were not correct for her. We strongly stressed the importance of nightly BiPAP use as failure to do so leads to increased CO2 narcosis. She remains significantly debilitated, mcc was recommended. She remained stable on her home oxygen level of 2 L/min, this should be maintained, she should avoid using more than the minimum necessary supplemental oxygen. She is accepted to TCU and transferred there in stable condition. She will need to follow-up with her PCP in 2 weeks, pulmonology in 1 to 2 weeks, cardiology as directed. This patient was seen by Booker Parson PA-C under the supervision of Doctor Cagle. [] Patient Problems: Active and Suspected Problems (Last Updated 11/02/18 @ 19:29 by César Cagle DO) CO2 narcosis (Acute) - Physical Exam General: Alert, Oriented x3, Cooperative HEENT: Atraumatic, PERRLA, EOMI, Normocephalic Neck: Supple, No JVD, Negative Carotid Bruits Lungs: Diminished - severely, Rales - faint fine right base Cardiovascular: Regular rate, No murmurs Abdomen: Bowel Sounds Present, Soft, Non Tender Extremities: No edema, Capillary Refill Less than 3 Seconds Skin: No rashes, No breakdown Musculoskeletal: No Tenderness to Palpation of Joints or Extremities Neurological: Cranial nerves II-XII grossly intact Psych/Mental Status: Normal Affect, Appropriate, Alert and oriented to time, place, person, mood and affect Vital Signs Temp Pulse Resp BP Pulse Ox 98.0 F 85 14 131/64 H 95 11/05/18 09:05 11/05/18 09:05 11/05/18 09:05 11/05/18 09:05 11/05/18 09:05 Oxygen Flow Rate (L/min) 2 Oxygen Delivery Method Nasal Cannula Weight: 145 lb 11.609 oz Body Mass Index (BMI) 24.0 Finger Stick Blood Glucose 101 Intake and Output for Last 24 Hours 11/03/18 11/04/18 11/05/18 23:59 23:59 23:59 Intake Total 866 / 866 340 / 340 910 / 910 Output Total 500 / 500 200 / 200 Balance 366 / 366 140 / 140 910 / 910 Laboratory Tests Past 24 Hrs 11/05/18 11/05/18 06:00 06:00 WBC 5.3 RBC 3.20 L Hgb 9.3 L Hct 30.1 L MCV 94.1 MCH 29.1 MCHC 30.9 L RDW 13.7 RDW Differential 47.2 H Plt Count 138 L MPV 10.2 Immature Gran % (Auto) 0.400 Neut % (Auto) 64.0 Lymph % (Auto) 22.3 [place] % (Auto) 11.6 H Eos % (Auto) 1.7 Baso % (Auto) 0.0 Absolute Neuts (auto) 3.4 Absolute Lymphs (auto) 1.17 Total Counted Not Reportable Sodium 146 H Potassium 3.0 L Chloride 105 Carbon Dioxide 38.0 H Anion Gap 3 L BUN 10 Creatinine 0.50 L Estim Creat Clear Calc 98.16 Est GFR (MDRD) Af Amer 162 Est GFR (MDRD) Non-Af 134 BUN/Creatinine Ratio 20.2 H Glucose 85 Calcium 8.3 L Discharge Diet: Low fat/ Low Cholesterol, 2000 mg Sodium Diet Discharge Activity: Return to Normal Activity Home Medications: Medications to take at Discharge Albuterol IH (ProAir) [Proair Hfa] 1 puff INHALATION Q4H PRN PRN #1 inhaler 09/17/17 aspirin 81 mg tablet,delayed release 81 mg PO DAILY #90 tab 03/02/18 Folic Acid 1 mg PO DAILY 09/14/18 Multivitamin with Minerals [Multiple Vitamin] 1 tab PO DAILY 09/14/18 Pantoprazole Sodium 40 mg PO QAM 09/14/18 Spironolactone 12.5 mg PO DAILY 09/14/18 Acetaminophen [Tylenol Tablet] 650 mg PO Q6H PRN PRN tab 09/16/18 Ipratropium/Albuterol Sulfate [Duoneb] 3 ml INHALATION 4X/DAY #120 ampul.neb 09/16/18 carvedilol 12.5 mg tablet 12.5 mg PO BID #180 tab 10/18/18 Acetaminophen [Tylenol Tablet] 650 mg PO Q6H PRN PRN tab 10/19/18 Carvedilol [Coreg (Beta Indy)] 12.5 mg PO BID tab 10/19/18 zolpidem 5 mg tablet 5 mg PO QHS PRN #10 tab 10/26/18 Acetaminophen [Tylenol Tablet] 650 mg PO Q6H PRN PRN tablet 11/05/18 Carvedilol [Coreg (Beta Indy)] 12.5 mg PO BID tablet 11/05/18 Famotidine [Pepcid] 20 mg PO BID tablet 11/05/18 Ipratropium/Albuterol Sulfate [Duoneb] 3 ml INHALATION Q6HWA.RT ampul.neb 11/05/18 Zolpidem Tartrate [Ambien] 5 mg PO QHS PRN PRN #3 tab 11/05/18 Following Prescrptions Were Given to Patient: Zolpidem Tartrate [Ambien] 5 mg PO QHS PRN PRN #3 tab PRN Reason: Insomnia Primary Care Physician: Glenn Ulloa MD [Primary Care Provider] - Please follow up with your Primary Care Physician in: 2 weeks Please Follow Up With: Mike Duarte MD When: 2 weeks Please Follow Up With: Shahzad Long MD When: as directed Disposition: Senior Living facility Minutes spent on discharge:: 35 Patient Condition:: Stable Medical Necessity - Tobacco Use Smoking Status: Former smoker Meaningful Use Info Meaningful Use Diagnoses (Choose all that apply): None applicable
--- NOTE | 2018-11-05 13:58 | CPS ---
Patient had requested a 'break' from the duoneb aerosol after a 2-3 minutes. Stopped back at 1350 and patient was up in the restroom.
== END 2018-11-05 14:28 | disposition skilled nursing facility (03) | DRG 208 ==
LOC: ED 10-31 01:53 → ICU 10-31 02:26 → PCU 11-03 13:32
PROVIDERS: Hospitalist; Internal Medicine; Internal Medicine Critical Care Medicine; Physician Assistant; Admitting Provider Family Medicine; Emergency Provider Emergency Medicine; Family Provider Internal Medicine; PCP Internal Medicine; Visit Provider Internal Medicine
DX: J96.22 Acute and chronic respiratory failure with hypercapnia (principal); I50.22 Chronic systolic (congestive) heart failure; J96.21 Acute and chronic respiratory failure with hypoxia; I25.10 Atherosclerotic heart disease of native coronary artery without angina pectoris; I11.0 Hypertensive heart disease with heart failure; K21.9 Gastro-esophageal reflux disease without esophagitis; J44.9 Chronic obstructive pulmonary disease, unspecified; I27.20 Pulmonary hypertension, unspecified; G47.33 Obstructive sleep apnea (adult) (pediatric); I25.2 Old myocardial infarction; G47.00 Insomnia, unspecified; F41.9 Anxiety disorder, unspecified; E78.5 Hyperlipidemia, unspecified; Z86.718 Personal history of other venous thrombosis and embolism; Z87.891 Personal history of nicotine dependence
CPT/HCPCS: 31500; 31720; 36415; 36600; 51702; 70450; 71045; 71046; 80048; 80053; 80307; 80320; 81001; 82140; 82803; 82962; 83735; 84100; 85025; 92526; 92610; 93005; 94002; 94003; 94640; 94660; 95831; 97110; 97116; 97163; 97166; 97530; 97802; 99251; 99285; J7030; J7040; J7050; A4216; G0463; G0480; J3490

== ENCOUNTER 2018-11-05 14:38 | Inpatient (IN) | payer MEDICARE, SELFPAY ==
[2018-10-31 02:50] VITALS: BMI 24.0
[2018-11-05 14:46] VITALS: BP 116/48; BP 133/67; PULSE 85; PULSE 91; RESP 18; RESP 22; TEMP 36.6; O2SAT 90; O2SAT 91; BMI 24.5; BMI 24.6
[2018-11-05 14:51] VITALS: PULSE 85; RESP 18; O2SAT 91
[2018-11-05 15:21] VITALS: BMI 24.5
--- NOTE | 2018-11-05 15:40 | NURSING ---
Pt arrived from [facility] via at 1430
[2018-11-05] MEDS: Carvedilol 12.5 MG Tablet PO (18:05)
[2018-11-05] MEDS: Senna/Docusate Sodium 1 Tablet PO (18:05)
[2018-11-05] MEDS: Famotidine 20 MG Tablet PO (18:05)
--- NOTE | 2018-11-05 19:25 | PCA ---
When responding to chair alarm found residents family member walking her to the sink in room. I educated family that they should not transfer her and to press call light for help. Family member started to get upset raised his voice and swore. I explained to him that is was for her safety. He told her that he better leave before he gets in trouble and gets sent to detention.
[2018-11-05] MEDS: Menthol/Lanolin/Calamine/Znox 113 GM Tube 1 APPLIC TOPICAL (19:34)
[2018-11-05] MEDS: Zolpidem Tartrate 5 MG Tablet PO (19:34)
[2018-11-05 19:50] VITALS: PULSE 88; RESP 18; O2SAT 91
[2018-11-05] MEDS: Ipratropium/Albuterol Sulfate 3 ML AMPUL.NEB INHALATION (19:50)
[2018-11-05 21:30] VITALS: PULSE 88; RESP 12; RESP 26; O2SAT 98
--- NOTE | 2018-11-05 21:59 | NURSING ---
Pt refusing to wear Bipap machine. Stating Its suffocating me and im not wearing it. NC 2L applied. Resp therapy updated.
--- NOTE | 2018-11-05 22:34 | PCM.HP.STD ---
Problem List (1) Encephalopathy Status: Acute (2) Acute respiratory failure Status: Acute (3) Alcohol abuse Status: Chronic (4) DVT (deep venous thrombosis) Status: Chronic (5) GERD (gastroesophageal reflux disease) Status: Chronic (6) TIO (obstructive sleep apnea) Status: Chronic (7) Insomnia Status: Chronic (8) Hyperlipidemia Status: Chronic Qualifiers: (9) Hypertension Status: Chronic Qualifiers: (10) Heart failure with reduced ejection fraction Status: Chronic (11) Transaminitis Status: Chronic (12) COPD (chronic obstructive pulmonary disease) Status: Chronic Qualifiers: History of Present Illness Date of Admission: 11/05/18 Chief Complaint: Here for rehabilitation, strengthening, prior to discharge home with spouse. The patient is a 63 year old Female with below past medical history presented to [facility] Emergency Department 10/30/2018 with confusion. 10/30/2018 CT brain negative hemorrhage, negative acute intracranial disease, bilateral remote cerebral infarcts, chronic sinus disease. 10/30/2018 EKG normal sinus rhythm, normal EKG. Took 1/2 Zolpidem, became confused. Facial droop per daughter, recent admission for hypercapnic respiratory failure. BiPAP in past, but intolerable due to mask. ABG pH 7.1, PCO2 > 130, WBC 12.2, ETOH negative. Urine tox POSITIVE benzodiazepine, Ammonia 60. Chest X-ray showed left lower lobe infiltrate. Intubated. Propofol, Fentanyl, IV fluids. 10/31/2018 Admit to Hospital. Acute respiratory failure secondary to obstructive sleep apnea, not using BiPAP. Intubated, ventilated. 10/31/2018 Dr. Duarte recommended continuing Precedex, Fentanyl, bronchodilator. Order sputum culture. Lactulose for elevated ammonia level. 11/01/2018 Steroids added. Phosphorous, Magnesium replaced. 11/01/2018 Chest X-ray stable, Negative airspace disease. 11/02/2018 Recheck ammonia level. 11/03/2018 Patient declined Hospice. Try to tolerate BiPAP without Haldol. 11/04/2018 Chest X-ray extubated, COPD. 11/04/2018 Off Haldol, Elevated ammonia level resolved. 11/05/2018 Admit to TCU with debility, here for rehabilitation, strengthening, prior to discharge home with spouse. Past Medical History Past Medical History (Chronic Problems): Chronic Problems (Last Updated 11/02/18 @ 19:29 by César Cagle DO) Pulmonary HTN (Chronic) GERD (gastroesophageal reflux disease) (Chronic) Alcohol abuse (Chronic) DVT (deep venous thrombosis) (Chronic) Hypotension arterial (Chronic) Pharyngitis (Chronic) Dyspnea on exertion (Chronic) TIO (obstructive sleep apnea) (Chronic) History of ETOH abuse (Chronic) History of DVT of lower extremity (Chronic 02/11/17) Rt lower extremity pinky vein Acid-base disorder, mixed (Chronic) Insomnia (Chronic) Anxiety (Chronic) Hyperlipidemia (Chronic) Hypertension (Chronic) Daytime hypersomnia (Chronic) Heart failure with reduced ejection fraction (Chronic) Transaminitis (Chronic) COPD (chronic obstructive pulmonary disease) (Chronic) Medical History: Medical History (Last Updated 11/02/18 @ 19:29 by César Cagle DO) History of ETOH abuse (Chronic) Z87.898 History of stroke (Resolved) Onset Date: 02/03/17 Z86.73 Right occipital lobe and left posterior superior parietal lobe per CT;later determined as hemorrhagic per MRI developed NSTEMI shortly after but no intervention d/t GI bleed History of non-ST elevation myocardial infarction (NSTEMI) (Resolved) Onset Date: 02/03/17 I25.2 History of DVT of lower extremity (Chronic) Onset Date: 02/11/17 Z86.718 Rt lower extremity pinky vein History of pneumonia (Resolved) Z87.01 Hyperlipidemia (Chronic) E78.5 Hypertension (Chronic) I10 Hemorrhagic cerebrovascular accident (CVA) (Resolved) I61.9 Heart failure with reduced ejection fraction (Chronic) I50.20 Metabolic encephalopathy (Resolved) G93.41 Upper GI bleed (Resolved) K92.2 Transaminitis (Chronic) R74.0 Elevated serum creatinine (Resolved) R79.89 COPD (chronic obstructive pulmonary disease) (Chronic) J44.9 PRES (posterior reversible encephalopathy syndrome) (Resolved) I67.83 Acute respiratory failure (Resolved) J96.00 Allergies tetanus and diphtheria toxoids [tetanus & diphtheria toxoids] Allergy (Verified 10/30/18 22:40) Hives Home Medications: Ambulatory Orders Medication Instructions Recorded Albuterol IH (ProAir) [Proair Hfa] 1 puff INHALATION Q4H PRN PRN #1 09/17/17 inhaler Folic Acid 1 mg PO DAILY 09/14/18 Multivitamin with Minerals 1 tab PO DAILY 09/14/18 [Multiple Vitamin] Pantoprazole Sodium 40 mg PO QAM 09/14/18 Spironolactone 12.5 mg PO DAILY 09/14/18 Acetaminophen [Tylenol Tablet] 650 mg PO Q6H PRN PRN tab 09/16/18 Aspirin E.C. 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: No pertinent PREVENTIVE 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 COORDINATOR history Lives: Spouse/ Significant Other Smoking Status: Former smoker Tobacco Use: Non-smoker Alcohol: None Drugs: None - *Family History Maternal Family History: Family History (Last Reviewed 10/26/18 @ 13:16 by Lakisha Strickland) Sister Cancer Father Cancer Mother Cancer History Items: Cancer - Lung Paternal Family History: Family History (Last Reviewed 10/26/18 @ 13:16 by Lakisha Strickland) Sister Cancer Father Cancer Mother Cancer History Items: Cancer - Lung Sibling Family History: Family History (Last Reviewed 10/26/18 @ 13:16 by Lakisha Strickland) Sister Cancer Father Cancer Mother Cancer History Items: Cancer - lung Review of Systems Constitutional: Denies: Chills, Fever, Weight Change HEENT: Denies: Head Aches, Sinus Congestion, Sinus Drainage Cardiovascular: Denies: Chest Pain, Palpitations Respiratory: Denies: Cough, Shortness of breath at rest, Sputum production Gastrointestinal: Denies: Abdominal Pain, Nausea, Vomiting Genitourinary: Denies: Dysuria Musculoskeletal: Denies: Joint Pain, Joint Tenderness Skin: Denies: Rash, Wounds Neurological: Denies: Numbness, Tingling, Focal weakness Psychiatric: Denies: Anxiety, Depression, Homicidal Ideations, Suicidal Ideations Hematologic/ Lymphatic: Denies: Easy Bruising, Easy Bleeding VTE Information - Inpt Only VTE Present on Admission: No VTE Mechan Device Prophylaxis: Knee High DANY Hose VTE Pharm Prophylaxis ordered?: Yes Patient Problems: Active and Suspected Problems (Last Updated 11/02/18 @ 19:29 by César Cagle DO) Encephalopathy (Acute) Acute respiratory failure (Acute) - Physical Exam General: Alert, Oriented x3, Cooperative HEENT: Atraumatic, PERRLA, EOMI, Normocephalic Neck: Supple, No JVD, Negative Carotid Bruits Lungs: Clear to auscultation, Normal air movement Cardiovascular: Regular rate, No murmurs Abdomen: Bowel Sounds Present, Soft, Non Tender Extremities: No edema, Capillary Refill Less than 3 Seconds Skin: No rashes, No breakdown Musculoskeletal: No Tenderness to Palpation of Joints or Extremities Neurological: Cranial nerves II-XII grossly intact Psych/Mental Status: Normal Affect, Appropriate Vital Signs Temp Pulse Resp BP Pulse Ox 98 F 88 26 H 116/48 L 98 11/05/18 14:46 11/05/18 21:30 11/05/18 21:30 11/05/18 14:46 11/05/18 21:30 Oxygen Flow Rate (L/min) 2 Oxygen Delivery Method Nasal Cannula Weight: 65.3 kg Body Mass Index (BMI) 24.5 Finger Stick Blood Glucose 101 Intake and Output for Last 24 Hours 11/03/18 11/04/18 11/05/18 23:59 23:59 23:59 Intake Total 120 / 120 Balance 120 / 120 Assessment/Plan All Active Problems (Last Updated 11/02/18 @ 19:29 by César Cagle DO) CO2 narcosis (Acute) Encephalopathy (Acute) Acute respiratory failure (Acute) Acute and chronic respiratory failure with hypercapnia (Acute) Chronic obstructive pulmonary disease with acute exacerbation (Acute) Nocturnal leg cramps (Resolved) History of stroke (Resolved 02/03/17) History of non-ST elevation myocardial infarction (NSTEMI) (Resolved 02/03/17) History of pneumonia (Resolved) H/O: section (Resolved) History of lumpectomy (Resolved) History of cholecystectomy (Resolved) Hemorrhagic cerebrovascular accident (CVA) (Resolved) Metabolic encephalopathy (Resolved) Upper GI bleed (Resolved) Elevated serum creatinine (Resolved) PRES (posterior reversible encephalopathy syndrome) (Resolved) Acute respiratory failure (Resolved) 63 year old female with below past medical history hospitalized for acute respiratory failure secondary to obstructive sleep apnea, complicated by encephalopathy, elevated ammonia, admitted to TCU with debility, here for rehabilitation, strengthening, prior to discharge home with spouse. Debility - PT/OT. Pain - Tylenol 1000MG Q6H PRN mild pain. Bowel - Miralax 17GM daily, Senokot 1 tablet BID, Dulcolax 10MG [place] daily PRN. Pneumonia vaccination - Administer Prevnar 13 and/or Pneumovax 23 as necessary. DVT prophylaxis - Lovenox 40MG SC daily. CV prophylaxis - Aspirin 81MG daily. COPD - Duoneb 3ML 4x/day, Albuterol 2 puffs Q4H PRN. Chronic systolic heart failure - Coreg 12.5MG twice daily, Aldactone 12.5MG daily. GERD - Famotidine 20MG twice daily. Folic acid deficiency - Folic Acid 1MG daily. Skin irritation - Calmoseptine BID coccyx. Nutrition - MVI daily. Insomnia - Zolpidem 5MG QHS PRN.
--- NOTE | 2018-11-05 22:42 | HP.PCM_ITS ---
Problem List (1) Encephalopathy Status: Acute (2) Acute respiratory failure Status: Acute (3) Alcohol abuse Status: Chronic (4) DVT (deep venous thrombosis) Status: Chronic (5) GERD (gastroesophageal reflux disease) Status: Chronic (6) TIO (obstructive sleep apnea) Status: Chronic (7) Insomnia Status: Chronic (8) Hyperlipidemia Status: Chronic Qualifiers: (9) Hypertension Status: Chronic Qualifiers: (10) Heart failure with reduced ejection fraction Status: Chronic (11) Transaminitis Status: Chronic (12) COPD (chronic obstructive pulmonary disease) Status: Chronic Qualifiers: History of Present Illness Date of Admission: 11/05/18 Chief Complaint: Here for rehabilitation, strengthening, prior to discharge home with spouse. The patient is a 63 year old Female with below past medical history presented to [facility] Emergency Department 10/30/2018 with confusion. 10/30/2018 CT brain negative hemorrhage, negative acute intracranial disease, bilateral remote cerebral infarcts, chronic sinus disease. 10/30/2018 EKG normal sinus rhythm, normal EKG. Took 1/2 Zolpidem, became confused. Facial droop per daughter, recent admission for hypercapnic respiratory failure. BiPAP in past, but intolerable due to mask. ABG pH 7.1, PCO2 > 130, WBC 12.2, ETOH negative. Urine tox POSITIVE benzodiazepine, Ammonia 60. Chest X-ray showed left lower lobe infiltrate. Intubated. Propofol, Fentanyl, IV fluids. 10/31/2018 Admit to Hospital. Acute respiratory failure secondary to obstructive sleep apnea, not using BiPAP. Intubated, ventilated. 10/31/2018 Dr. Duarte recommended continuing Precedex, Fentanyl, bronchodilator. Order sputum culture. Lactulose for elevated ammonia level. 11/01/2018 Steroids added. Phosphorous, Magnesium replaced. 11/01/2018 Chest X-ray stable, Negative airspace disease. 11/02/2018 Recheck ammonia level. 11/03/2018 Patient declined Hospice. Try to tolerate BiPAP without Haldol. 11/04/2018 Chest X-ray extubated, COPD. 11/04/2018 Off Haldol, Elevated ammonia level resolved. 11/05/2018 Admit to TCU with debility, here for rehabilitation, strengthening, prior to discharge home with spouse. Past Medical History Past Medical History (Chronic Problems): Chronic Problems (Last Updated 11/02/18 @ 19:29 by César Cagle DO) Pulmonary HTN (Chronic) GERD (gastroesophageal reflux disease) (Chronic) Alcohol abuse (Chronic) DVT (deep venous thrombosis) (Chronic) Hypotension arterial (Chronic) Pharyngitis (Chronic) Dyspnea on exertion (Chronic) TIO (obstructive sleep apnea) (Chronic) History of ETOH abuse (Chronic) History of DVT of lower extremity (Chronic 02/11/17) Rt lower extremity pinky vein Acid-base disorder, mixed (Chronic) Insomnia (Chronic) Anxiety (Chronic) Hyperlipidemia (Chronic) Hypertension (Chronic) Daytime hypersomnia (Chronic) Heart failure with reduced ejection fraction (Chronic) Transaminitis (Chronic) COPD (chronic obstructive pulmonary disease) (Chronic) Medical History: Medical History (Last Updated 11/02/18 @ 19:29 by César Cagle DO) History of ETOH abuse (Chronic) Z87.898 History of stroke (Resolved) Onset Date: 02/03/17 Z86.73 Right occipital lobe and left posterior superior parietal lobe per CT;later determined as hemorrhagic per MRI developed NSTEMI shortly after but no intervention d/t GI bleed History of non-ST elevation myocardial infarction (NSTEMI) (Resolved) Onset Date: 02/03/17 I25.2 History of DVT of lower extremity (Chronic) Onset Date: 02/11/17 Z86.718 Rt lower extremity pinky vein History of pneumonia (Resolved) Z87.01 Hyperlipidemia (Chronic) E78.5 Hypertension (Chronic) I10 Hemorrhagic cerebrovascular accident (CVA) (Resolved) I61.9 Heart failure with reduced ejection fraction (Chronic) I50.20 Metabolic encephalopathy (Resolved) G93.41 Upper GI bleed (Resolved) K92.2 Transaminitis (Chronic) R74.0 Elevated serum creatinine (Resolved) R79.89 COPD (chronic obstructive pulmonary disease) (Chronic) J44.9 PRES (posterior reversible encephalopathy syndrome) (Resolved) I67.83 Acute respiratory failure (Resolved) J96.00 Allergies tetanus and diphtheria toxoids [tetanus & diphtheria toxoids] Allergy (Verified 10/30/18 22:40) Hives Home Medications: Ambulatory Orders Medication Instructions Recorded Albuterol IH (ProAir) [Proair Hfa] 1 puff INHALATION Q4H PRN PRN #1 09/17/17 inhaler Folic Acid 1 mg PO DAILY 09/14/18 Multivitamin with Minerals 1 tab PO DAILY 09/14/18 [Multiple Vitamin] Pantoprazole Sodium 40 mg PO QAM 09/14/18 Spironolactone 12.5 mg PO DAILY 09/14/18 Acetaminophen [Tylenol Tablet] 650 mg PO Q6H PRN PRN tab 09/16/18 Aspirin E.C. 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 Lives: Spouse/ Significant Other Smoking Status: Former smoker Tobacco Use: Non-smoker Alcohol: None Drugs: None - *Family History Maternal Family History: Family History (Last Reviewed 10/26/18 @ 13:16 by Lakisha Strickland) Sister Cancer Father Cancer Mother Cancer History Items: Cancer - Lung Paternal Family History: Family History (Last Reviewed 10/26/18 @ 13:16 by Lakisha Strickland) Sister Cancer Father Cancer Mother Cancer History Items: Cancer - Lung Sibling Family History: Family History (Last Reviewed 10/26/18 @ 13:16 by Lakisha Strickland) Sister Cancer Father Cancer Mother Cancer History Items: Cancer - lung Review of Systems Constitutional: Denies: Chills, Fever, Weight Change HEENT: Denies: Head Aches, Sinus Congestion, Sinus Drainage Cardiovascular: Denies: Chest Pain, Palpitations Respiratory: Denies: Cough, Shortness of breath at rest, Sputum production Gastrointestinal: Denies: Abdominal Pain, Nausea, Vomiting Genitourinary: Denies: Dysuria Musculoskeletal: Denies: Joint Pain, Joint Tenderness Skin: Denies: Rash, Wounds Neurological: Denies: Numbness, Tingling, Focal weakness Psychiatric: Denies: Anxiety, Depression, Homicidal Ideations, Suicidal Ideations Hematologic/ Lymphatic: Denies: Easy Bruising, Easy Bleeding VTE Information - Inpt Only VTE Present on Admission: No VTE Mechan Device Prophylaxis: Knee High DANY Hose VTE Pharm Prophylaxis ordered?: Yes Patient Problems: Active and Suspected Problems (Last Updated 11/02/18 @ 19:29 by César Cagle DO) Encephalopathy (Acute) Acute respiratory failure (Acute) - Physical Exam General: Alert, Oriented x3, Cooperative HEENT: Atraumatic, PERRLA, EOMI, Normocephalic Neck: Supple, No JVD, Negative Carotid Bruits Lungs: Clear to auscultation, Normal air movement Cardiovascular: Regular rate, No murmurs Abdomen: Bowel Sounds Present, Soft, Non Tender Extremities: No edema, Capillary Refill Less than 3 Seconds Skin: No rashes, No breakdown Musculoskeletal: No Tenderness to Palpation of Joints or Extremities Neurological: Cranial nerves II-XII grossly intact Psych/Mental Status: Normal Affect, Appropriate Vital Signs Temp Pulse Resp BP Pulse Ox 98 F 88 26 H 116/48 L 98 11/05/18 14:46 11/05/18 21:30 11/05/18 21:30 11/05/18 14:46 11/05/18 21:30 Oxygen Flow Rate (L/min) 2 Oxygen Delivery Method Nasal Cannula Weight: 65.3 kg Body Mass Index (BMI) 24.5 Finger Stick Blood Glucose 101 Intake and Output for Last 24 Hours 11/03/18 11/04/18 11/05/18 23:59 23:59 23:59 Intake Total 120 / 120 Balance 120 / 120 Assessment/Plan All Active Problems (Last Updated 11/02/18 @ 19:29 by César Cagle DO) CO2 narcosis (Acute) Encephalopathy (Acute) Acute respiratory failure (Acute) Acute and chronic respiratory failure with hypercapnia (Acute) Chronic obstructive pulmonary disease with acute exacerbation (Acute) Nocturnal leg cramps (Resolved) History of stroke (Resolved 02/03/17) History of non-ST elevation myocardial infarction (NSTEMI) (Resolved 02/03/17) History of pneumonia (Resolved) H/O: section (Resolved) History of lumpectomy (Resolved) History of cholecystectomy (Resolved) Hemorrhagic cerebrovascular accident (CVA) (Resolved) Metabolic encephalopathy (Resolved) Upper GI bleed (Resolved) Elevated serum creatinine (Resolved) PRES (posterior reversible encephalopathy syndrome) (Resolved) Acute respiratory failure (Resolved) 63 year old female with below past medical history hospitalized for acute respiratory failure secondary to obstructive sleep apnea, complicated by encephalopathy, elevated ammonia, admitted to TCU with debility, here for rehabilitation, strengthening, prior to discharge home with spouse. * Debility - PT/OT. * Pain - Tylenol 1000MG Q6H PRN mild pain. * Bowel - Miralax 17GM daily, Senokot 1 tablet BID, Dulcolax 10MG NE daily PRN. * Pneumonia vaccination - Administer Prevnar 13 and/or Pneumovax 23 as necessary. * DVT prophylaxis - Lovenox 40MG SC daily. * CV prophylaxis - Aspirin 81MG daily. * COPD - Duoneb 3ML 4x/day, Albuterol 2 puffs Q4H PRN. * Chronic systolic heart failure - Coreg 12.5MG twice daily, Aldactone 12.5MG daily. * GERD - Famotidine 20MG twice daily. * Folic acid deficiency - Folic Acid 1MG daily. * Skin irritation - Calmoseptine BID coccyx. * Nutrition - MVI daily. * Insomnia - Zolpidem 5MG QHS PRN.
[2018-11-06] VITALS (7 sets, daily range): BP systolic 133; BP diastolic 35; PULSE 74–95; RESP 12–20; TEMP 36.5; O2SAT 95–99
--- NOTE | 2018-11-06 03:20 | CPS ---
pt stated mask was sufficating -bipap removed by nurse and placed back on 2 l/m nc
[2018-11-06] MEDS: Menthol/Lanolin/Calamine/Znox 113 GM Tube 1 APPLIC TOPICAL ×2 (03:57→19:37)
[2018-11-06] MEDS: Spironolactone 25 MG Tablet 12.5 MG PO (03:59)
[2018-11-06] MEDS: Carvedilol 12.5 MG Tablet PO ×2 (04:00→17:06)
[2018-11-06] MEDS: Polyethylene Glycol 3350 17 GM PACKET PO (04:00)
[2018-11-06] MEDS: Senna Tablet 1 TABLET PO ×2 (04:00→17:07)
[2018-11-06] MEDS: Famotidine 20 MG Tablet PO ×2 (04:00→17:06)
[2018-11-06] MEDS: Enoxaparin 40 MG/0.4 ML Syringe SC (04:00)
[2018-11-06 05:32] LABS: Absolute Lymphocyte Count 1.51 X10^3/ul (0.83-4.51); Absolute Neutrophil Count 3.6 X10^3/uL (2.0-7.7); Basophil# 0.01 X10^3/uL; Basophil% 0.2 % (0-1); Eosinophil# 0.36 X10^3/uL; Eosinophils% 5.8 % (0-5); Hematocrit 32.8 % (37-47); Hemoglobin 10.3 g/dl (12.0-15.0); Lymphocyte # 1.51 X10^3/ul (4.0); Lymphocyte % 24.4 % (19-41); Mean Corp Hgb Conc 31.4 g/gl (32-36); Mean Corpuscular Hgb 28.9 pg (27.0-32.0); Mean Corpuscular Volume 91.9 fL (81-99); Mean Platelet Vol. 10.2 fl (6.2-12.0); Monocyte# 0.69 X10^3/uL; Monocyte% 11.1 % (0-10); Neutrophil # 3.61 X10^3/uL (2.7-7.7); Neutrophil % 58.2 % (47-70); Platelet Count 181 K/mm3 (150-450); RBC Distribution Width CV 13.5 % (11.6-14.6); RBC Distribution Width SD 45.4 fl (35.1-43.9); Red Blood Count 3.57 M/mm3 (4.2-5.4); White Blood Count 6.2 K/mm3 (4.4-11.0)
[2018-11-06 05:36] LABS: POSITIVE COUNT NO; POSITIVE DIFFERENTIAL NO; POSITIVE MORPHOLOGY NO
[2018-11-06 05:44] LABS: Anion Gap 3 (5-15); BUN 6 mg/dL (7-18); Calcium,Total 8.8 mg/dL (8.5-10.1); Chloride 101 mmol/L (98-107); EST Glomerular Filtration Rate 132 mL/min (>60); Est Glom Filt Rate - Afr Amer 160 mL/min (>60); Estimated Creatinine Clearance 98.16 ml/min; Glucose 102 mg/dL (74-106); Potassium 3.4 mmol/L (3.5-5.1); Sodium Level 144 mmol/L (136-145)
[2018-11-06] MEDS: Ipratropium/Albuterol Sulfate 3 ML AMPUL.NEB INHALATION ×3 (06:53→15:15)
[2018-11-06] MEDS: Folic Acid 1 MG Tablet PO (08:08)
[2018-11-06] MEDS: Multivitamins,Ther W-Minerals Tablet 1 TABLET PO (08:08)
[2018-11-06] MEDS: Aspirin E.C. 81 MG Tablet PO (08:08)
--- NOTE | 2018-11-06 10:30 | NURSING ---
This nurse notified by Yanet LUCERO that a pill was found on floor in Pt room after family had left. After checking medication, Medication is identified as Ambien 10mg, which is not a scheduled medication for this Pt. Cynthia KILPATRICK aware
[2018-11-06] MEDS: Tuberculin,Purif.prot.deriv. 50 TU/ML Vial 5 ML ID (10:40)
--- NOTE | 2018-11-06 13:08 | PCA ---
Family brought in food for lunch
[2018-11-06] MEDS: Zolpidem Tartrate 5 MG Tablet 10 MG PO (21:03)
--- NOTE | 2018-11-06 21:51 | NURSING ---
Pt wore BIPAP machine for 20min and took it off. Stating I can't wear that thing. 2L NC applied. Pt resting in bed with call light in reach.
--- NOTE | 2018-11-06 22:45 | CPS ---
Discussed with pt that she needs to wear the Bipap while sleeping. Risks and benefits discussed and pt verbalizes understanding. Pt wore Bipap for 10 minutes and then stated she just can't do it. Pt placed back on 2l per nursing.
[2018-11-07] MEDS: Acetaminophen 500 MG Tablet 1000 MG PO (01:54)
--- NOTE | 2018-11-07 03:22 | NURSING ---
Pt refusing to wear bipap throughout the night. 2L NS applied. Pt climbing out of bed numerous times and restless. Pt brought to the nurses station. Fluids provided. 1:1 effective.
[2018-11-07] MEDS: Polyethylene Glycol 3350 17 GM PACKET PO (04:07)
[2018-11-07] MEDS: Spironolactone 25 MG Tablet 12.5 MG PO (04:09)
[2018-11-07] MEDS: Senna Tablet 1 TABLET PO ×2 (04:10→17:06)
[2018-11-07] MEDS: Carvedilol 12.5 MG Tablet PO ×2 (04:10→17:07)
[2018-11-07] MEDS: Famotidine 20 MG Tablet PO ×2 (04:10→17:06)
[2018-11-07] MEDS: Menthol/Lanolin/Calamine/Znox 113 GM Tube 1 APPLIC TOPICAL ×2 (04:10→21:02)
[2018-11-07] MEDS: Enoxaparin 40 MG/0.4 ML Syringe SC (04:26)
[2018-11-07 06:00] VITALS: PULSE 80; RESP 18; O2SAT 98
[2018-11-07] MEDS: Multivitamins,Ther W-Minerals Tablet 1 TABLET PO (08:14)
[2018-11-07] MEDS: Folic Acid 1 MG Tablet PO (08:14)
[2018-11-07] MEDS: Aspirin E.C. 81 MG Tablet PO (08:14)
[2018-11-07 11:04] VITALS: PULSE 79; RESP 22; O2SAT 98
[2018-11-07] MEDS: Ipratropium/Albuterol Sulfate 3 ML AMPUL.NEB INHALATION ×2 (11:04→14:32)
--- NOTE | 2018-11-07 11:04 | PCM.PN.RX ---
<Santana Colin D - Last Filed: 11/07/18 11:04> Progress Note - Pharmacy Subjective: TCU Admission Objective: Allergies tetanus and diphtheria toxoids [tetanus & diphtheria toxoids] Allergy (Verified 10/30/18 22:40) Hives Current Medications Generic Name Dose Route Start Last Admin Trade Name Freq PRN Reason Stop Dose Admin Acetaminophen 1,000 mg 11/05/18 22:51 11/07/18 01:54 Tylenol PO 1,000 mg Q6H PRN PRN Administration MILD PAIN (1-3/10) Albuterol Sulfate 2 puff 11/05/18 22:52 Ventolin Hfa (Sp) INHALATION Q4H PRN PRN SOB &/OR WHEEZING Albuterol/Ipratropium 3 ml 11/05/18 19:00 11/07/18 06:34 Duoneb INHALATION Not Given 4X/DAY.RT WALTER Aspirin 81 mg 11/06/18 08:00 11/07/18 08:14 Ecotrin PO 81 mg DAILYCM WALTER Administration Bisacodyl 10 mg 11/05/18 15:38 Dulcolax RECTAL DAILY PRN PRN Constipation Calamine/Phenol 1 applic 11/05/18 22:00 11/07/18 04:10 Calmoseptine Ointment TOPICAL 1 applicatio 0600,2200 WALTER Administration Protocol Carvedilol 12.5 mg 11/05/18 18:00 11/07/18 04:10 Coreg PO 12.5 mg BID WALTER Administration Enoxaparin Sodium 40 mg 11/06/18 06:00 11/07/18 04:26 Lovenox SC 40 mg DAILY@0600 WALTER Administration Famotidine 20 mg 11/05/18 18:00 11/07/18 04:10 Pepcid PO 20 mg BID WALTER Administration Folic Acid 1 mg 11/06/18 08:00 11/07/18 08:14 Folic Acid PO 1 mg DAILYCM WALTER Administration Multivitamins/Minerals 1 tablet 11/06/18 08:00 11/07/18 08:14 Multivitamin With Minerals PO 1 tablet DAILY@0800 WALTER Administration Polyethylene Glycol 17 gm 11/06/18 06:00 11/07/18 04:07 Miralax PO 17 gm DAILY WALTER Administration Senna 1 tablet 11/06/18 06:00 11/07/18 04:10 Senokot PO 1 tablet BID WALTER Administration Spironolactone 12.5 mg 11/06/18 06:00 11/07/18 04:09 Aldactone PO 12.5 mg DAILY WALTER Administration Tuberculin PPD 5 tu 11/13/18 10:00 Tubersol, Aplisol, Ppd ID 11/13/18 10:01 X1 ONE Zolpidem Tartrate 10 mg 11/06/18 13:47 11/06/18 21:03 Ambien (Generic) PO 10 mg QHS PRN PRN Administration INSOMNIA Problem List (Last Updated 11/02/18 @ 19:29 by César Cagle DO) Encephalopathy (Acute) Acute respiratory failure (Acute) Alcohol abuse (Chronic) DVT (deep venous thrombosis) (Chronic) Vital Signs Temp Pulse Resp BP Pulse Ox 97.7 F L 80 18 133/35 H 98 11/06/18 14:20 11/07/18 06:00 11/07/18 06:00 11/06/18 14:20 11/07/18 06:00 Oxygen Flow Rate (L/min) 2 Oxygen Delivery Method Nasal Cannula Weight: 65.3 kg Body Mass Index (BMI) 24.5 Finger Stick Blood Glucose 101 Sodium 144 mmol/L (136-145) 11/06/18 05:05 Potassium 3.4 mmol/L (3.5-5.1) L 11/06/18 05:05 Chloride 101 mmol/L (98-107) 11/06/18 05:05 Carbon Dioxide 40.0 mmol/L (21.0-32.0) H 11/06/18 05:05 Anion Gap 3 (5-15) L 11/06/18 05:05 BUN 6 mg/dL (7-18) L 11/06/18 05:05 Creatinine 0.50 mg/dL (0.55-1.02) L 11/06/18 05:05 Est GFR (MDRD) Af Amer 160 mL/min (>60) 11/06/18 05:05 Est GFR (MDRD) Non-Af 132 mL/min (>60) 11/06/18 05:05 BUN/Creatinine Ratio 12.0 RATIO (10-20) 11/06/18 05:05 Glucose 102 mg/dL (74-106) 11/06/18 05:05 Assessment/Plan: 1) Pain APAP for mild pain. Continue to monitor daily pain scores, prn medication use. 2) Pulm Duoneb, albuterol prn. Continue to monitor prn medication use, for shortness of breath. 3) GI Famotidine. Continue to monitor s/s GI distress. 4) Heart Failure ASA, carvedilol, spironolactone. Continue to monitor BP/HR, renal function, electrolytes. 5) DVT PPx Enoxaparin. Continue to monitor for bleeding/clot. 6) Nutrition FA, MV. Continue to monitor clinically. Psychotropic Medications: 7) Insomnia Zolpidem. Continue to monitor prn medication use, for insomnia. Unnecessary Medications: None Bowel Regimen: 8) Senna, PEG, prn bisacodyl. Continue to monitor prn medication use, for constipation/diarrhea. Date of Note:: 11/07/18 - Provider Comments Provider responsibility: Provider responsible to enter orders to implement recommendations <Mitesh Lees Chi - Last Filed: 11/07/18 17:40> Progress Note - Pharmacy Subjective: [] Objective: Allergies tetanus and diphtheria toxoids [tetanus & diphtheria toxoids] Allergy (Verified 10/30/18 22:40) Hives Current Medications Generic Name Dose Route Start Last Admin Trade Name Freq PRN Reason Stop Dose Admin Acetaminophen 1,000 mg 11/05/18 22:51 11/07/18 01:54 Tylenol PO 1,000 mg Q6H PRN PRN Administration MILD PAIN (1-3/10) Albuterol Sulfate 2 puff 11/05/18 22:52 Ventolin Hfa (Sp) INHALATION Q4H PRN PRN SOB &/OR WHEEZING Albuterol/Ipratropium 3 ml 11/05/18 19:00 11/07/18 14:32 Duoneb INHALATION 3 ml 4X/DAY.RT WALTER Administration Aspirin 81 mg 11/06/18 08:00 11/07/18 08:14 Ecotrin PO 81 mg DAILYCM WALTER Administration Bisacodyl 10 mg 11/05/18 15:38 Dulcolax RECTAL DAILY PRN PRN Constipation Calamine/Phenol 1 applic 11/05/18 22:00 11/07/18 04:10 Calmoseptine Ointment TOPICAL 1 applicatio 0600,2200 WALTER Administration Protocol Carvedilol 12.5 mg 11/05/18 18:00 11/07/18 17:07 Coreg PO 12.5 mg BID WALTER Administration Enoxaparin Sodium 40 mg 11/06/18 06:00 11/07/18 04:26 Lovenox SC 40 mg DAILY@0600 WALTER Administration Famotidine 20 mg 11/05/18 18:00 11/07/18 17:06 Pepcid PO 20 mg BID WALTER Administration Folic Acid 1 mg 11/06/18 08:00 11/07/18 08:14 Folic Acid PO 1 mg DAILYCM WALTER Administration Multivitamins/Minerals 1 tablet 11/06/18 08:00 11/07/18 08:14 Multivitamin With Minerals PO 1 tablet DAILY@0800 WALTER Administration Polyethylene Glycol 17 gm 11/06/18 06:00 11/07/18 04:07 Miralax PO 17 gm DAILY WALTER Administration Senna 1 tablet 11/06/18 06:00 11/07/18 17:06 Senokot PO 1 tablet BID WALTER Administration Spironolactone 12.5 mg 11/06/18 06:00 11/07/18 04:09 Aldactone PO 12.5 mg DAILY WALTER Administration Tuberculin PPD 5 tu 11/13/18 10:00 Tubersol, Aplisol, Ppd ID 11/13/18 10:01 X1 ONE Zolpidem Tartrate 10 mg 11/06/18 13:47 11/06/18 21:03 Ambien (Generic) PO 10 mg QHS PRN PRN Administration INSOMNIA Problem List (Last Updated 11/02/18 @ 19:29 by César Cagle DO) Encephalopathy (Acute) Acute respiratory failure (Acute) Alcohol abuse (Chronic) DVT (deep venous thrombosis) (Chronic) Vital Signs Temp Pulse Resp BP Pulse Ox 98.8 F 80 20 H 133/70 H 2 11/07/18 16:00 11/07/18 16:00 11/07/18 16:00 11/07/18 16:00 11/07/18 16:00 Oxygen Flow Rate (L/min) 3 Oxygen Delivery Method Room Air Weight: 65.3 kg Body Mass Index (BMI) 24.5 Finger Stick Blood Glucose 101 Sodium 144 mmol/L (136-145) 11/06/18 05:05 Potassium 3.4 mmol/L (3.5-5.1) L 11/06/18 05:05 Chloride 101 mmol/L (98-107) 11/06/18 05:05 Carbon Dioxide 40.0 mmol/L (21.0-32.0) H 11/06/18 05:05 Anion Gap 3 (5-15) L 11/06/18 05:05 BUN 6 mg/dL (7-18) L 11/06/18 05:05 Creatinine 0.50 mg/dL (0.55-1.02) L 11/06/18 05:05 Est GFR (MDRD) Af Amer 160 mL/min (>60) 11/06/18 05:05 Est GFR (MDRD) Non-Af 132 mL/min (>60) 11/06/18 05:05 BUN/Creatinine Ratio 12.0 RATIO (10-20) 11/06/18 05:05 Glucose 102 mg/dL (74-106) 11/06/18 05:05 Assessment/Plan: Psychotropic Medications: Unnecessary Medications: Bowel Regimen: - Provider Comments Provider responsibility: Provider responsible to enter orders to implement recommendations Provider Comments to Recommendations by Pharmacy: Agree
[2018-11-07 14:32] VITALS: PULSE 76; RESP 18
--- NOTE | 2018-11-07 14:38 | CASEMGMT ---
SW met with patient, introduced self and role at [facility]. Patient answered all questions in assessment appropriately. Patient wishes to return home at discharge. Farzaneh HANKS
[2018-11-07 16:00] VITALS: BP 133/70; PULSE 80; RESP 20; TEMP 37.1; O2SAT 2
[2018-11-07] MEDS: Zolpidem Tartrate 5 MG Tablet 10 MG PO (20:55)
--- NOTE | 2018-11-07 23:22 | NURSING ---
Pt refusing to wear bipap throughout the night. 2L NS applied.
--- NOTE | 2018-11-07 23:42 | CPS ---
PT REFUSING TO WEAR BIPAP HS. RISKS AND BENEFITS DISCUSSED. PT VERBALIZES UNDERSTANDING. PT REMAINS ON 2L.
--- NOTE | 2018-11-08 03:26 | NURSING ---
Addendum entered by Cynthia Barroso 11/08/18 08:39: Dr Lees updated on urine results. no new orders. Original Note: Pt c/o burning and itching this nurse collected a urine sample. Color yellow and slightly cloudy with a odor to it. RN aware
[2018-11-08] MEDS: Famotidine 20 MG Tablet PO ×2 (04:19→17:27)
[2018-11-08] MEDS: Carvedilol 12.5 MG Tablet PO ×2 (04:19→17:27)
[2018-11-08] MEDS: Senna Tablet 1 TABLET PO ×2 (04:19→17:27)
[2018-11-08] MEDS: Spironolactone 25 MG Tablet 12.5 MG PO (04:20)
[2018-11-08] MEDS: Polyethylene Glycol 3350 17 GM PACKET PO (04:21)
[2018-11-08] MEDS: Enoxaparin 40 MG/0.4 ML Syringe SC (04:21)
[2018-11-08] MEDS: Menthol/Lanolin/Calamine/Znox 113 GM Tube 1 APPLIC TOPICAL ×2 (04:24→19:44)
[2018-11-08 07:26] LABS: Color, Urine Yellow (Yellow); Glucose, Dipstick Normal (Normal); Ketone-Dipstick Negative (Negative); Leukocyte Esterase-Dipstick 100 /ul (Negative); Mucous, Urine 0 SEEN /hpf (<or=2+); Nitrite-Dipstick Negative (Negative); Occult Blood-Urine Negative /ul (Negative); Protein-Dipstick Negative (Negative); Red Blood Cells-Urine 0 SEEN /hpf (0-5); Squamous Epithelial Cells - UA 0 SEEN /hpf (5-10); Urine Bilirubin Dipstick Negative (Negative); Urine Clarity Sl. Cloudy (Clear); Urine Urobilinogen Normal (Normal)
[2018-11-08] MEDS: Folic Acid 1 MG Tablet PO (07:38)
[2018-11-08] MEDS: Aspirin E.C. 81 MG Tablet PO (07:38)
[2018-11-08] MEDS: Multivitamins,Ther W-Minerals Tablet 1 TABLET PO (07:38)
[2018-11-08 07:43] LABS: Bacteria 2+ /hpf (None Seen); White Blood Cells 10-25 SEEN /hpf (0-5)
[2018-11-08 08:06] VITALS: PULSE 77; RESP 18; O2SAT 97
[2018-11-08] MEDS: Ipratropium/Albuterol Sulfate 3 ML AMPUL.NEB INHALATION ×3 (08:06→19:30)
[2018-11-08 09:00] VITALS: PULSE 79; RESP 18; O2SAT 99
[2018-11-08 16:00] VITALS: BP 124/59; PULSE 84; RESP 20; TEMP 36.8; O2SAT 94
[2018-11-08 19:30] VITALS: PULSE 84; RESP 20
[2018-11-08] MEDS: Zolpidem Tartrate 5 MG Tablet 10 MG PO (21:00)
--- NOTE | 2018-11-08 21:12 | NURSING ---
Pt agreeable to wearing bipap machine to sleep after taking prn ambien. Per report pt will refuse and later forget refusing. RT called. Will continue to monitor.
[2018-11-08 21:30] VITALS: PULSE 83; RESP 12; RESP 18; O2SAT 95
--- NOTE | 2018-11-08 21:38 | NURSING ---
After approx 15 minutes wearing cpap pt had removed it, alarm going off. When this nurse went into room to ask pt about it she said she needed a break. Unable to put NC back on as pt only has one 02 outlet on wall. Pt encouraged to put mask back on and try to sleep. Agreeable to this. With assistance from Vianca LUCERO, mask put back on and pt repositioned for comfort. Encouraged to wear as long as possible. RN aware, continuing to monitor.
--- NOTE | 2018-11-08 23:14 | NURSING ---
Pt refusing to wear bipap any longer, wearing 02 via NC. Repositioned for comfort and encouraged to rest.
[2018-11-09] MEDS: Acetaminophen 500 MG Tablet 1000 MG PO (00:13)
[2018-11-09] MEDS: Senna Tablet 1 TABLET PO ×2 (04:53→16:45)
[2018-11-09] MEDS: Carvedilol 12.5 MG Tablet PO ×2 (04:53→16:45)
[2018-11-09] MEDS: Menthol/Lanolin/Calamine/Znox 113 GM Tube 1 APPLIC TOPICAL ×2 (04:54→19:44)
[2018-11-09] MEDS: Spironolactone 25 MG Tablet 12.5 MG PO (04:54)
[2018-11-09] MEDS: Famotidine 20 MG Tablet PO ×2 (04:55→16:45)
[2018-11-09] MEDS: Enoxaparin 40 MG/0.4 ML Syringe SC (04:55)
[2018-11-09 07:38] VITALS: PULSE 82; RESP 16; O2SAT 95
[2018-11-09] MEDS: Ipratropium/Albuterol Sulfate 3 ML AMPUL.NEB INHALATION ×3 (07:38→18:48)
[2018-11-09] MEDS: Folic Acid 1 MG Tablet PO (07:40)
[2018-11-09] MEDS: Multivitamins,Ther W-Minerals Tablet 1 TABLET PO (07:40)
[2018-11-09] MEDS: Aspirin E.C. 81 MG Tablet PO (07:40)
[2018-11-09 10:00] VITALS: RESP 18
[2018-11-09 10:48] VITALS: PULSE 78; RESP 18
--- NOTE | 2018-11-09 12:45 | CASEMGMT ---
Social Work SW spoke with Gail in the Sleep Lab about pt bipap. Gail states that pt will need a new sleep study to qualify for a bipap for sleep apnea and the soonest appt is 12/06/18. Gail also stating pt may qualify for Non invasive vent and this would not require a sleep study. Gail will talk to Dr. Duarte's office and IBETH will follow up. Pt notified of above. RUI Noble
--- NOTE | 2018-11-09 12:53 | CASEMGMT ---
Plan of care meeting held today with pt and 5 family members present. Pt is receiving PT/OT/ST and progressing. Pt requesting to return home at this time. Pt is able to ambulate without assistive device and is SBA for self care. Pt expressing concern over bipap. Prior to admission pt had been using her boyfriends bipap. While in acute, process for pt personal bipap was started. Will wait to set d/c date until status with bipap is clarified. VM left with sleep lab. RUI Noble
[2018-11-09 15:12] VITALS: BP 125/72; PULSE 74; RESP 16; TEMP 36.6; O2SAT 99
--- NOTE | 2018-11-09 17:38 | NURSING ---
pt c/o itching in vaginal area, dr simental updated, aware urine culture pending still, new order for diflucan 150 mg po x1 dose.
[2018-11-09 18:48] VITALS: PULSE 81; RESP 18
[2018-11-09] MEDS: Fluconazole 100 MG Tablet 150 MG PO (18:58)
[2018-11-09] MEDS: Zolpidem Tartrate 5 MG Tablet 10 MG PO (20:54)
[2018-11-09 21:00] VITALS: PULSE 84; RESP 12; RESP 22; O2SAT 93
[2018-11-10] VITALS (7 sets, daily range): BP systolic 104–114; BP diastolic 64–66; PULSE 74–84; RESP 16–24; TEMP 36.3; O2SAT 96–99
--- NOTE | 2018-11-10 04:17 | CPS ---
Pt refusing to leave BIPAP on. MARKER MACHINE & RN tried multiple times to apply.
[2018-11-10] MEDS: Menthol/Lanolin/Calamine/Znox 113 GM Tube 1 APPLIC TOPICAL ×2 (06:03→20:24)
[2018-11-10] MEDS: Famotidine 20 MG Tablet PO ×2 (06:05→18:02)
[2018-11-10] MEDS: Senna Tablet 1 TABLET PO ×2 (06:05→18:02)
[2018-11-10] MEDS: Carvedilol 12.5 MG Tablet PO ×2 (06:05→18:02)
[2018-11-10] MEDS: Spironolactone 25 MG Tablet 12.5 MG PO (06:06)
[2018-11-10] MEDS: Enoxaparin 40 MG/0.4 ML Syringe SC (06:08)
[2018-11-10] MEDS: Ipratropium/Albuterol Sulfate 3 ML AMPUL.NEB INHALATION ×3 (06:46→18:50)
--- NOTE | 2018-11-10 07:09 | NURSING ---
Patient confused at times. This am asked this nurse When are you gonna put on my Bipap? Bi pap was attempted x 2 during the night and tolerated poorly. Resp therapists changed settings and patient said that's better. In five min patient refused the Bipap. I feel like I'm being smothered. Resp even and unlabored Spo2 was 94%. Patient was put back on 2L O2 and slept. This nurse explained above to patient. Also when given am meds patient tired to drink from opposite side of straw from pitcher. But patient knew nurses name and place. Confused to time requesting her ambien. This nurse explained she received it last night.
[2018-11-10] MEDS: Acetaminophen 500 MG Tablet 1000 MG PO (07:32)
[2018-11-10] MEDS: Multivitamins,Ther W-Minerals Tablet 1 TABLET PO (07:33)
[2018-11-10] MEDS: Folic Acid 1 MG Tablet PO (07:33)
[2018-11-10] MEDS: Aspirin E.C. 81 MG Tablet PO (07:33)
--- NOTE | 2018-11-10 15:05 | CASEMGMT ---
Social Work Phone call to Gail in Sleep lab. Gail is stating Dr. Duarte would like to see pt in office to qualify pt for Non invasive vent. Appt is made for November 18. IBETH spoke with Radha KILPATRICK and explained situation with bipap/NIV and discussed viability of pt returning home without Bipap/NIV until follow up appt. Radha KILPATRICK will call Dr. Duarte's office to see if there is an available appt sooner and will talk with Dr. Lees regarding pt return home without bipap. IBETH met with pt in room and explained all of the above. Pt and significant other expressing understanding of this and are agreeable to continued stay in facility until solution can be found. With pt permission, phone call to pt dgt Ameena and the above explained. Ameena also expressing understanding and will be in to speak with pt about this. IBETH will continue to follow. RUI Noble
--- NOTE | 2018-11-10 17:54 | NURSING ---
Dr. Lees discussed possible discharge with patient and family. Feels patient needs to stay on TCU at this point to adjust to Bipap machine. New order fo ativan 0.5mg PO qHS to help with anxiety from Bipap, may take with Ambien per Dr. Lees.
[2018-11-10] MEDS: CEFUROXIME AXETIL 250 MG TABLET 500 MG PO (18:01)
--- NOTE | 2018-11-10 18:03 | NURSING ---
Dr. Lees reviewed final urine culture, continue Ceftin.
[2018-11-10] MEDS: LORazepam 1 MG Tablet PO (20:15)
[2018-11-10] MEDS: Zolpidem Tartrate 5 MG Tablet 10 MG PO (20:16)
--- NOTE | 2018-11-11 01:41 | NURSING ---
Tolerated Bipap for 5 hours tonight. Did take ativan and ambien together at 2014 on 11/10. Biapap placed on at 11/10. Assisted to bathroom 11/11 and refused to have machine back on. I think I conquered it! staff enc her to try Bipap for more time but only lasted 5 min and requested it off. Will cont to monitor. O2 in place. Same reported to Osvaldo RN and Rosalva RN.
[2018-11-11] MEDS: CEFUROXIME AXETIL 250 MG TABLET 500 MG PO ×2 (06:05→17:29)
[2018-11-11] MEDS: Polyethylene Glycol 3350 17 GM PACKET PO (06:05)
[2018-11-11] MEDS: Spironolactone 25 MG Tablet 12.5 MG PO (06:06)
[2018-11-11] MEDS: Famotidine 20 MG Tablet PO ×2 (06:06→17:29)
[2018-11-11] MEDS: Senna Tablet 1 TABLET PO ×2 (06:06→17:29)
[2018-11-11] MEDS: Carvedilol 12.5 MG Tablet PO ×2 (06:06→17:29)
[2018-11-11] MEDS: Enoxaparin 40 MG/0.4 ML Syringe SC (06:08)
[2018-11-11] MEDS: Menthol/Lanolin/Calamine/Znox 113 GM Tube 1 APPLIC TOPICAL ×2 (06:08→20:51)
[2018-11-11] MEDS: Acetaminophen 500 MG Tablet 1000 MG PO (06:11)
[2018-11-11 06:15] VITALS: PULSE 80; RESP 18
[2018-11-11 06:30] VITALS: PULSE 78; RESP 20; O2SAT 86
[2018-11-11] MEDS: Ipratropium/Albuterol Sulfate 3 ML AMPUL.NEB INHALATION ×2 (06:30→11:30)
[2018-11-11] MEDS: Multivitamins,Ther W-Minerals Tablet 1 TABLET PO (08:01)
[2018-11-11] MEDS: Folic Acid 1 MG Tablet PO (08:01)
[2018-11-11] MEDS: Aspirin E.C. 81 MG Tablet PO (08:01)
--- NOTE | 2018-11-11 09:44 | NURSING ---
This nurse walked by and noticed Pt standing by her bathroom, and Pt brother sitting in recliner. Stating ' he was there so her alarm didn't go off This nurse explained to Pt that she is not to transfer alone and that her family is unable to transfer her and she needs to call staff for assistance. This nurse also stating to Pt brother that it is not helping Pt get stronger and it is putting Pt at risk for him to allow her to walk with out assistance. This nurse also explained that the alarm is for Pt safety and he does not need to be sitting on alarm for Pt. Pt and brother voiced understanding. Art KILPATRICK aware
[2018-11-11 12:07] VITALS: PULSE 83; RESP 18
--- NOTE | 2018-11-11 12:45 | CASEMGMT ---
Social Work Met with pt in room. Pt requesting to return home. Pt does not have bipap at home and SW has spoke with sleep lab and pt needs to see jail keeper prior to a bipap or NIV being ordered. SW spoke with nursing and appointment set for 11/15 at 2:45. SW spoke with physician who states pt cannot return home until bipap is arranged. Per sleep lab, pt may qualify for a NIV unit. SW spoke with pt about the above. Pt is frustrated that she cannot return home however she voices understanding for reasoning and is agreeable to remain in facility until bipap can be arranged. Tyrone FABIAN
--- NOTE | 2018-11-11 12:56 | CASEMGMT ---
BIMS and PHQ9 interviews completed. RUI Noble
[2018-11-11 15:03] VITALS: BP 105/47; PULSE 68; RESP 16; TEMP 37.2; O2SAT 98
[2018-11-11] MEDS: LORazepam 1 MG Tablet PO (20:51)
[2018-11-11] MEDS: Zolpidem Tartrate 5 MG Tablet 10 MG PO (20:55)
[2018-11-11 21:45] VITALS: PULSE 85; RESP 12; RESP 20; O2SAT 95
[2018-11-12 03:25] VITALS: PULSE 85; RESP 18
[2018-11-12] MEDS: Ipratropium/Albuterol Sulfate 3 ML AMPUL.NEB INHALATION ×4 (03:25→19:25)
[2018-11-12] MEDS: Menthol/Lanolin/Calamine/Znox 113 GM Tube 1 APPLIC TOPICAL ×2 (05:47→20:49)
[2018-11-12] MEDS: CEFUROXIME AXETIL 250 MG TABLET 500 MG PO ×2 (05:47→18:01)
[2018-11-12] MEDS: Famotidine 20 MG Tablet PO ×2 (05:49→18:01)
[2018-11-12] MEDS: Carvedilol 12.5 MG Tablet PO ×2 (05:50→18:01)
[2018-11-12] MEDS: Enoxaparin 40 MG/0.4 ML Syringe SC (05:50)
[2018-11-12] MEDS: Senna Tablet 1 TABLET PO ×2 (05:50→18:01)
[2018-11-12] MEDS: Polyethylene Glycol 3350 17 GM PACKET PO (05:50)
[2018-11-12] MEDS: Spironolactone 25 MG Tablet 12.5 MG PO (05:51)
[2018-11-12 06:40] VITALS: PULSE 88; RESP 18; O2SAT 96
[2018-11-12] MEDS: Multivitamins,Ther W-Minerals Tablet 1 TABLET PO (08:01)
[2018-11-12] MEDS: Folic Acid 1 MG Tablet PO (08:01)
[2018-11-12] MEDS: Aspirin E.C. 81 MG Tablet PO (08:01)
[2018-11-12 11:05] VITALS: PULSE 71; RESP 16
[2018-11-12 13:56] VITALS: PULSE 67; RESP 18; O2SAT 99
[2018-11-12 15:23] VITALS: BP 102/58; PULSE 74; RESP 16; TEMP 36.9; O2SAT 98
[2018-11-12 19:25] VITALS: PULSE 81; RESP 16; O2SAT 98
[2018-11-12] MEDS: Zolpidem Tartrate 5 MG Tablet 10 MG PO (20:45)
[2018-11-12] MEDS: LORazepam 1 MG Tablet PO (20:45)
[2018-11-13] MEDS: CEFUROXIME AXETIL 250 MG TABLET 500 MG PO ×2 (05:41→17:35)
[2018-11-13] MEDS: Senna Tablet 1 TABLET PO ×2 (05:42→17:35)
[2018-11-13] MEDS: Famotidine 20 MG Tablet PO ×2 (05:42→17:35)
[2018-11-13] MEDS: Carvedilol 12.5 MG Tablet PO ×2 (05:43→17:35)
[2018-11-13] MEDS: Spironolactone 25 MG Tablet 12.5 MG PO (05:44)
[2018-11-13] MEDS: Enoxaparin 40 MG/0.4 ML Syringe SC (05:48)
[2018-11-13] MEDS: Menthol/Lanolin/Calamine/Znox 113 GM Tube 1 APPLIC TOPICAL ×2 (05:50→19:53)
[2018-11-13 07:03] LABS: Absolute Neutrophil Count 2.7 X10^3/uL (2.0-7.7); Basophil# 0.03 X10^3/uL; Basophil% 0.5 % (0-1); Eosinophil# 0.24 X10^3/uL; Eosinophils% 4.4 % (0-5); Hematocrit 31.7 % (37-47); Hemoglobin 9.5 g/dl (12.0-15.0); Lymphocyte % 34.7 % (19-41); Mean Corpuscular Hgb 28.8 pg (27.0-32.0); Mean Corpuscular Volume 96.1 fL (81-99); Mean Platelet Vol. 10.1 fl (6.2-12.0); Monocyte# 0.62 X10^3/uL; Monocyte% 11.3 % (0-10); Neutrophil # 2.66 X10^3/uL (2.7-7.7); Neutrophil % 48.6 % (47-70); Platelet Count 205 K/mm3 (150-450); RBC Distribution Width SD 46.2 fl (35.1-43.9); White Blood Count 5.5 K/mm3 (4.4-11.0)
[2018-11-13 07:06] LABS: POSITIVE COUNT NO; POSITIVE DIFFERENTIAL NO; POSITIVE MORPHOLOGY NO
[2018-11-13 07:23] LABS: Anion Gap 6 (5-15); BUN 10 mg/dL (7-18); BUN/Creat Ratio 16.3 RATIO (10-20); Calcium,Total 8.5 mg/dL (8.5-10.1); Chloride 105 mmol/L (98-107); Creatinine, Serum 0.62 mg/dL (0.55-1.02); EST Glomerular Filtration Rate 104 mL/min (>60); Est Glom Filt Rate - Afr Amer 126 mL/min (>60); Estimated Creatinine Clearance 79.16 ml/min; Glucose 86 mg/dL (74-106); Potassium 3.8 mmol/L (3.5-5.1); Sodium Level 147 mmol/L (136-145)
[2018-11-13 07:40] VITALS: PULSE 65; RESP 18; O2SAT 98
[2018-11-13] MEDS: Ipratropium/Albuterol Sulfate 3 ML AMPUL.NEB INHALATION ×3 (07:40→18:32)
[2018-11-13] MEDS: Multivitamins,Ther W-Minerals Tablet 1 TABLET PO (08:34)
[2018-11-13] MEDS: Aspirin E.C. 81 MG Tablet PO (08:34)
[2018-11-13] MEDS: Folic Acid 1 MG Tablet PO (08:34)
[2018-11-13] MEDS: Tuberculin,Purif.prot.deriv. 50 TU/ML Vial 5 ML ID (09:40)
[2018-11-13 11:30] VITALS: PULSE 60; RESP 18; O2SAT 98
[2018-11-13 14:00] VITALS: PULSE 74; RESP 16
[2018-11-13 15:18] VITALS: BP 109/52; PULSE 64; RESP 14; TEMP 37.2; O2SAT 97
[2018-11-13 18:32] VITALS: PULSE 70; RESP 16; O2SAT 99
[2018-11-13] MEDS: Zolpidem Tartrate 5 MG Tablet 10 MG PO (19:48)
[2018-11-13] MEDS: LORazepam 1 MG Tablet PO (19:48)
--- NOTE | 2018-11-13 20:43 | PCA ---
Addendum entered by Ginny Moreland 11/13/18 21:58: Dr. Lees notified of this. No new orders given. Will continue to monitor patient. Original Note: Addendum entered by Delia Mao 11/13/18 21:21: BUGGY RUNNER brought this situation to this nurse attention and I went in patient room and educated patient on taking medications that aren't prescribed by the doctor and what contradictions it could have caused with the medications that the nurse had already given without knowing that the patient had taken something without the nurse attention. This nurse had already had given Ativan and Ambien as ordered before finding out per patient statement that she, had taken half of a Ambien that I brought from home. Nurse asked patient if she had anymore medications in her room she stated, no and I promise not to do it again. This nurse looked in patient clothing in closet and found no other medications. Wasted half of a pill with Rosalva RN in the disposable container in med room. Notified both RN's about the pill the BUGGY RUNNER found in patient room. Original Note: assisted patient to the bathroom, on the way back to bed patient stopped at her closet. As she was rummaging through all her clothes and unrolling all her socks. I asked if she was looking for something. Patient stated she was looking for her Ambien. I reminded her that the nurse just gave you your night time beds. Patient stated the nurse gave me an Ativan and Ambien. I said right, so you already had your sleeping pill. Patient stated no the nurse gave me an Ativan and an Ambien, they are two different things. I reminded patient that she already had an Ambien. Patient still rummaging through belongings and stated that she had one rolled up in a pair of socks. As i was looking through her socks the patient went over to the bed and started taking her pj bottoms off. I heard what sounded like a pill hit the floor and when i turned around the patient had a folded napkin in her hands and said to late its in my system.. I asked her if she took a pill and she said i had to take my sleeping pill. I told the patient that she shouldn't of done that. I said what if something happens to you. Patient said nothing is going to happen. IF you have to report it go ahead. I picked up a half of a pill on the floor by her bed when she wasn't watching. Turned on bed exit before i left room. Reported and gave the half pill to Delia ROLDAN.
[2018-11-13 21:03] VITALS: PULSE 69; RESP 12; RESP 18; O2SAT 94
--- NOTE | 2018-11-13 22:40 | NURSING ---
Pt wearing bipap at this time FINESSE Blackwell educated pt on the importance on wearing the bipap. RT came up and connected patient to the bipap around 9 pm will continue to monitor.
--- NOTE | 2018-11-13 23:26 | NURSING ---
Pt requested that bipap be taken off at this time. RN made aware
--- NOTE | 2018-11-13 23:44 | CPS ---
RN informed me that patient requested to have BiPAP taken off. Discussed the importance of patient wearing BiPAP at night with 1900 breathing tx. Patient said she understands the benefits of wearing PAP. Patient wore BiPAP for around two and a half hours with good tolerance. Patient now resting on 2L NC.
--- NOTE | 2018-11-14 01:09 | NURSING ---
Pt allowed this nurse to apply bipap back on during this time. No concerns voiced at this time. Rn made aware.
[2018-11-14 01:13] VITALS: PULSE 74; RESP 12; RESP 18; O2SAT 93
--- NOTE | 2018-11-14 02:15 | NURSING ---
Pt request for bipap to be taken off respiratory therapy notified of patient request.
--- NOTE | 2018-11-14 02:37 | CPS ---
RN called and said patient requested to come off BiPAP. Placed back on 2L NC. Talked with patient and she said that mask is uncomfortable. She told me pressure is tolerable though. Encouraged her to keep wearing BiPAP as tolerated. Said she will let RN know when she would want to go back on.
[2018-11-14] MEDS: Spironolactone 25 MG Tablet 12.5 MG PO (06:45)
[2018-11-14] MEDS: Carvedilol 12.5 MG Tablet PO ×2 (06:45→17:15)
[2018-11-14] MEDS: Famotidine 20 MG Tablet PO ×2 (06:45→17:15)
[2018-11-14] MEDS: Senna Tablet 1 TABLET PO ×2 (06:45→17:15)
[2018-11-14] MEDS: CEFUROXIME AXETIL 250 MG TABLET 500 MG PO ×2 (06:46→17:14)
[2018-11-14] MEDS: Enoxaparin 40 MG/0.4 ML Syringe SC (06:47)
[2018-11-14 06:50] VITALS: O2SAT 95
[2018-11-14] MEDS: Menthol/Lanolin/Calamine/Znox 113 GM Tube 1 APPLIC TOPICAL ×2 (06:54→21:22)
[2018-11-14] MEDS: Folic Acid 1 MG Tablet PO (07:56)
[2018-11-14] MEDS: Multivitamins,Ther W-Minerals Tablet 1 TABLET PO (07:56)
[2018-11-14] MEDS: Aspirin E.C. 81 MG Tablet PO (07:56)
[2018-11-14 14:00] VITALS: PULSE 80; RESP 17
[2018-11-14 14:07] VITALS: BP 97/53; PULSE 83; RESP 20; TEMP 36; O2SAT 98
--- NOTE | 2018-11-14 17:09 | CASEMGMT ---
Social Work Phone call to April at Dr. Duarte's office. April has spoken to Gail in sleep lab and to Marlin at [facility]. The following discharge plan is in place per April and Gail. Pt will see JAMES Chopra at Dr. Mckeon's office tomorrow at 2:45 for assessment for NIV. Pt will then return to TCU. D/C from TCU will be on Wednesday11/16/18. Marlin from [facility] will be at pt house at 1:00 to set up NIV and show pt how to use it. IBETH met with pt and friend Nasim and explained this. Pt is agreeable to plan. Phone call to pt dgt Ameena and explained above plan to her. She is understanding and agreeable to plan. Dr. Moe's office will be in contact with [facility] to provide needed orders. IBETH will follow as needed. Plan: D/C home 11/16/18 with family support. [facility] to deliver NIV on this date to her home. RUI Noble
[2018-11-14] MEDS: Ipratropium/Albuterol Sulfate 3 ML AMPUL.NEB INHALATION (20:05)
[2018-11-14 20:10] VITALS: PULSE 68; RESP 16; O2SAT 99
[2018-11-14] MEDS: LORazepam 1 MG Tablet PO (21:21)
[2018-11-14] MEDS: Zolpidem Tartrate 5 MG Tablet 10 MG PO (21:21)
--- NOTE | 2018-11-14 23:50 | NURSING ---
Pt refusing to wear mask after 2200 meds were given. Several attempts were made by this nurse. Education was provided numerous times. Pt questioning this nurse numerous times if Ambien and Ativan were given together stating I know they are to be given together. Explained the reason why Ativan was prescribed to help with wearing the mask. Pt stating I do not care. Pt boyfriend sitting in recliner. 2L NC in place. Pt resting in bed with call light in reach.
[2018-11-15] MEDS: Spironolactone 25 MG Tablet 12.5 MG PO (06:45)
[2018-11-15] MEDS: Carvedilol 12.5 MG Tablet PO ×2 (06:45→17:51)
[2018-11-15] MEDS: CEFUROXIME AXETIL 250 MG TABLET 500 MG PO ×2 (06:45→17:51)
[2018-11-15] MEDS: Famotidine 20 MG Tablet PO ×2 (06:45→17:51)
[2018-11-15] MEDS: Senna Tablet 1 TABLET PO ×2 (06:45→17:51)
[2018-11-15] MEDS: Enoxaparin 40 MG/0.4 ML Syringe SC (06:45)
[2018-11-15] MEDS: Menthol/Lanolin/Calamine/Znox 113 GM Tube 1 APPLIC TOPICAL ×2 (06:50→23:01)
[2018-11-15 07:00] VITALS: O2SAT 94
[2018-11-15] MEDS: Folic Acid 1 MG Tablet PO (08:22)
[2018-11-15] MEDS: Multivitamins,Ther W-Minerals Tablet 1 TABLET PO (08:22)
[2018-11-15] MEDS: Aspirin E.C. 81 MG Tablet PO (08:22)
--- NOTE | 2018-11-15 08:28 | DCINST_ITS ---
- Discharge Diagnoses Current Active Problems: Current Active and Chronic Problems (Last Updated 11/02/18 @ 19:29 by César Cagle DO) Encephalopathy (Acute) Acute respiratory failure (Acute) Alcohol abuse (Chronic) DVT (deep venous thrombosis) (Chronic) You will use the following diet at home:: No restrictions, Regular Your food should be the consistency of: Regular Your liquids should be the consistency of: Regular/Thin Discharge Activity: Return to Normal Activity, May Shower, Use Walker Weight Bearing Status: Weight bearing as tolerated Call your doctor if you observe: Fever of 101 or Higher, Inability to urinate, Inability to have a bowel movement, Shortness of breath, Chest pain, Uncontrolled pain Allergies/Adverse Reactions: Allergies tetanus and diphtheria toxoids [tetanus & diphtheria toxoids] Allergy (Verified 10/30/18 22:40) Hives Medications to take at Discharge Albuterol IH (ProAir) [Proair Hfa] 1 puff INHALATION Q4H PRN PRN #1 inhaler 09/17/17 Multivitamin with Minerals [Multiple Vitamin] 1 tab PO DAILY 09/14/18 Pantoprazole Sodium 40 mg PO QAM 09/14/18 Spironolactone 12.5 mg PO DAILY 09/14/18 Aspirin E.C. [Ecotrin] 81 mg PO DAILY 11/05/18 Carvedilol [Coreg (Beta Indy)] 12.5 mg PO BID 11/05/18 Ipratropium/Albuterol Sulfate [Duoneb] 3 ml INHALATION 4X/DAY 11/05/18 Zolpidem Tartrate [Ambien] 5 mg PO QHS PRN PRN #3 tab 11/05/18 Acetaminophen [Tylenol] 1,000 mg PO Q6H PRN PRN tablet 11/15/18 Cefuroxime Axetil [Ceftin] 500 mg PO Q12 #2 tablet 11/15/18 Folic Acid 1 mg PO DAILY #30 tablet 11/15/18 Lorazepam [Ativan] 1 mg PO QHS #30 tab 11/15/18 Menthol/Lanolin/Calamine/Znox [Calmoseptine Ointment] 1 applic TOPICAL 0600,2200 tube 11/15/18 The following prescriptions were given: Cefuroxime Axetil [Ceftin] 500 mg PO Q12 #2 tablet Folic Acid 1 mg PO DAILY #30 tablet Lorazepam [Ativan] 1 mg PO QHS #30 tab Primary Care Physician: Glenn Ulloa MD [Primary Care Provider] - Please follow up with your Primary Care Physician in: 1 week. Test Results: Test results from this visit will be discussed in further detail at your follow- up appointment, if applicable. Please Follow Up With: Shahzad Long MD/Severo Neal NP When: as directed Please Follow Up With: Mike Duarte MD When: [phone] Proposed Discharge Date: 11/16/18
--- NOTE | 2018-11-15 08:28 | PCM.DC.SUM ---
Discharge Date and Diagnosis - Problem List Patient Problems: Active and Suspected Problems (Last Updated 11/02/18 @ 19:29 by César Cagle DO) Encephalopathy (Acute) Acute respiratory failure (Acute) Date of Admission: 11/05/18 Date of Discharge: 11/16/18 - Primary Discharge Diagnosis Active and Suspected Problems (Last Updated 11/02/18 @ 19:29 by César Cagle DO) Encephalopathy (Acute) Acute respiratory failure (Acute) - Secondary Discharge Diagnosis Chronic Problems (Last Updated 11/02/18 @ 19:29 by César Cagle DO) Pulmonary HTN (Chronic) GERD (gastroesophageal reflux disease) (Chronic) Alcohol abuse (Chronic) DVT (deep venous thrombosis) (Chronic) Hypotension arterial (Chronic) Pharyngitis (Chronic) Dyspnea on exertion (Chronic) TIO (obstructive sleep apnea) (Chronic) History of ETOH abuse (Chronic) History of DVT of lower extremity (Chronic 02/11/17) Rt lower extremity pinky vein Acid-base disorder, mixed (Chronic) Insomnia (Chronic) Anxiety (Chronic) Hyperlipidemia (Chronic) Hypertension (Chronic) Daytime hypersomnia (Chronic) Heart failure with reduced ejection fraction (Chronic) Transaminitis (Chronic) COPD (chronic obstructive pulmonary disease) (Chronic) Hospital Course and Treatment Imaging Results: 11/05/18 15:33 Diet: Regular Diet Food consistency:: Regular Liquid Consistency:: Regular/Thin Is pt able to select menu?: No Diet Comments: distant supervision, straws ok, must be in chair for meal Operations: None Procedures: None Summary of Care Provided: The patient is a 63 year old Female with below past medical history hospitalized for acute respiratory failure secondary to obstructive sleep apnea, complicated by encephalopathy, elevated ammonia, admitted to TCU with debility, here for rehabilitation, strengthening, prior to discharge home with spouse. On TCU, resident unable to tolerate BiPAP, Ativan added to aid with anxiety from BiPAP. 11/15/2018 Appointment with Ema Stevens to set up NIV at home. Resident treated for E. Coli UTI with Ceftin, will be discharged with 1 more day of Ceftin. Discharge home with family support, [facility] to deliver NIV(Non invasive ventilation) to home. Patient Problems: Active and Suspected Problems (Last Updated 11/02/18 @ 19:29 by César Cagle DO) Encephalopathy (Acute) Acute respiratory failure (Acute) - Physical Exam Vital Signs Temp Pulse Resp BP Pulse Ox 96.8 F L 68 16 97/53 L 99 11/14/18 14:07 11/14/18 20:10 11/14/18 20:10 11/14/18 14:07 11/14/18 20:10 Oxygen Flow Rate (L/min) 2 Oxygen Delivery Method Nasal Cannula Weight: 62.913 kg Body Mass Index (BMI) 24.5 Finger Stick Blood Glucose 101 Intake and Output for Last 24 Hours 11/13/18 11/14/18 11/15/18 23:59 23:59 23:59 Intake Total 480 / 480 600 / 600 Balance 480 / 480 600 / 600 Discharge Diet: No Restrictions Discharge Activity: Return to Normal Activity, May Shower, Use Walker Weight Bearing Status: Weight bearing as tolerated Call your doctor if you observe: Fever of 101 or Higher, Inability to urinate, Inability to have a bowel movement, Shortness of breath, Chest pain, Uncontrolled pain Home Medications: Medications to take at Discharge Albuterol IH (ProAir) [Proair Hfa] 1 puff INHALATION Q4H PRN PRN #1 inhaler 09/17/17 Multivitamin with Minerals [Multiple Vitamin] 1 tab PO DAILY 09/14/18 Pantoprazole Sodium 40 mg PO QAM 09/14/18 Spironolactone 12.5 mg PO DAILY 09/14/18 Aspirin E.C. [Ecotrin] 81 mg PO DAILY 11/05/18 Carvedilol [Coreg (Beta Indy)] 12.5 mg PO BID 11/05/18 Ipratropium/Albuterol Sulfate [Duoneb] 3 ml INHALATION 4X/DAY 11/05/18 Zolpidem Tartrate [Ambien] 5 mg PO QHS PRN PRN #3 tab 11/05/18 Acetaminophen [Tylenol] 1,000 mg PO Q6H PRN PRN tablet 11/15/18 Cefuroxime Axetil [Ceftin] 500 mg PO Q12 #2 tablet 11/15/18 Folic Acid 1 mg PO DAILY #30 tablet 11/15/18 Lorazepam [Ativan] 1 mg PO QHS #30 tab 11/15/18 Menthol/Lanolin/Calamine/Znox [Calmoseptine Ointment] 1 applic TOPICAL 0600,2200 tube 11/15/18 Following Prescrptions Were Given to Patient: Cefuroxime Axetil [Ceftin] 500 mg PO Q12 #2 tablet Folic Acid 1 mg PO DAILY #30 tablet Lorazepam [Ativan] 1 mg PO QHS #30 tab Primary Care Physician: Glenn Ulloa MD [Primary Care Provider] - Please follow up with your Primary Care Physician in: 1 week. Please Follow Up With: Shahzad Long MD/Severo Neal NP When: as directed Please Follow Up With: Mike Duarte MD When: [phone] Disposition: Home Minutes spent on discharge:: 30 Patient Condition:: Stable Medical Necessity - Tobacco Use Smoking Status: Former smoker Tobacco Use: Non-smoker Meaningful Use Info Meaningful Use Diagnoses (Choose all that apply): None applicable
[2018-11-15 10:04] VITALS: PULSE 70; RESP 18; O2SAT 98
[2018-11-15 15:53] VITALS: BP 103/51; PULSE 80; RESP 18; TEMP 36.7; O2SAT 97
--- NOTE | 2018-11-15 16:53 | CASEMGMT ---
Social Work SW spoke with pt regarding home health nurse due to respiratory issues. Pt stating the she would like for [facility] to resume when she returns home. Pt is current with [facility] and referral made to Maria Isabel at [facility]. They are able to see pt. Pt stating that she does have home O2 and a nebulizer. No futher d/c needs. Plan: home with [facility] FINESSE. RUI Noble
[2018-11-15 17:55] VITALS: BP 119/46; PULSE 82
--- NOTE | 2018-11-15 18:05 | HHNOTE_ITS ---
Home Health Note - Plan Overview of reason of hospitalization: The patient is a 63 year old Female with below past medical history hospitalized for acute respiratory failure secondary to obstructive sleep apnea, complicated by encephalopathy, elevated ammonia, admitted to TCU with debility, here for rehabilitation, strengthening, prior to discharge home with spouse. On TCU, resident unable to tolerate BiPAP, Ativan added to aid with anxiety from BiPAP. 11/15/2018 Appointment with Ema Stevens to set up NIV at home. Resident treated for E. Coli UTI with Ceftin, will be discharged with 1 more day of Ceftin. Discharge home with family support, [facility] to deliver NIV(Non invasive ventilation) to home. Problems: Patient was seen for (Last Reviewed 11/15/18 @ 15:16 by Ema Stevens, ANNEALING FURNACE TENDER-C) Encephalopathy (Acute) Acute respiratory failure (Acute) Alcohol abuse (Chronic) DVT (deep venous thrombosis) (Chronic) Complete List of Medical Problems (Last Reviewed 11/15/18 @ 15:16 by Ema Stevens, GUSTABO-C) CO2 narcosis (Acute) Pulmonary HTN (Chronic) GERD (gastroesophageal reflux disease) (Chronic) Encephalopathy (Acute) Acute respiratory failure (Acute) Alcohol abuse (Chronic) DVT (deep venous thrombosis) (Chronic) Acute and chronic respiratory failure with hypercapnia (Acute) Chronic obstructive pulmonary disease with acute exacerbation (Acute) Hypotension arterial (Chronic) Pharyngitis (Chronic) Dyspnea on exertion (Chronic) TIO (obstructive sleep apnea) (Chronic) History of ETOH abuse (Chronic) History of DVT of lower extremity (Chronic 02/11/17) Acid-base disorder, mixed (Chronic) Insomnia (Chronic) Anxiety (Chronic) Hyperlipidemia (Chronic) Hypertension (Chronic) Daytime hypersomnia (Chronic) Heart failure with reduced ejection fraction (Chronic) Transaminitis (Chronic) COPD (chronic obstructive pulmonary disease) (Chronic) - Requirements and Reasons Disciplines Needed/Ordered: Snf Reason for Disciplines: Disease Specific Monitoring/education Related To: Change in Medical Treatment Plan, Limited/Poor Endurance, Shortness of Breath with Activity, Physical Impairments Patient is unable to leave the home: Without Aid of Supportive Devices (crutches, cane, wheelchair, walker), Without the assistance of another person
[2018-11-15 19:10] VITALS: PULSE 79; RESP 16; O2SAT 96
[2018-11-15] MEDS: Ipratropium/Albuterol Sulfate 3 ML AMPUL.NEB INHALATION (19:10)
--- NOTE | 2018-11-15 19:26 | CPS ---
pt states does not want the bipap-discussed benifits and negatives of wearing bipap
[2018-11-15] MEDS: Zolpidem Tartrate 5 MG Tablet 10 MG PO (22:58)
[2018-11-15] MEDS: LORazepam 1 MG Tablet PO (22:58)
[2018-11-16] MEDS: Famotidine 20 MG Tablet PO (06:03)
[2018-11-16] MEDS: Enoxaparin 40 MG/0.4 ML Syringe SC (06:03)
[2018-11-16] MEDS: Spironolactone 25 MG Tablet 12.5 MG PO (06:03)
[2018-11-16] MEDS: Carvedilol 12.5 MG Tablet PO (06:03)
[2018-11-16] MEDS: CEFUROXIME AXETIL 250 MG TABLET 500 MG PO (06:03)
[2018-11-16] MEDS: Menthol/Lanolin/Calamine/Znox 113 GM Tube 1 APPLIC TOPICAL (06:07)
[2018-11-16 06:32] VITALS: PULSE 79; RESP 20; O2SAT 100
[2018-11-16] MEDS: Ipratropium/Albuterol Sulfate 3 ML AMPUL.NEB INHALATION (06:32)
[2018-11-16] MEDS: Folic Acid 1 MG Tablet PO (07:55)
[2018-11-16] MEDS: Multivitamins,Ther W-Minerals Tablet 1 TABLET PO (07:55)
[2018-11-16] MEDS: Aspirin E.C. 81 MG Tablet PO (07:55)
[2018-11-16 08:30] VITALS: PULSE 80; RESP 18; O2SAT 91
[2018-11-16 09:11] VITALS: BP 90/56; PULSE 79; RESP 16; TEMP 36.7; O2SAT 98
--- NOTE | 2018-11-16 11:24 | MDS.RN ---
Information for the mds was obtained from review of the clinical record, interview of resident, staff, and direct observation of resident's care.
== END 2018-11-16 10:26 | disposition home health service (06) | DRG 948 ==
PROVIDERS: Admitting Provider Family Medicine Geriatric Medicine; Family Provider Internal Medicine; PCP Internal Medicine; Referring Provider Family Medicine Geriatric Medicine; Visit Provider Family Medicine Geriatric Medicine
DX: R53.81 Other malaise (principal); I50.22 Chronic systolic (congestive) heart failure; N39.0 Urinary tract infection, site not specified; I11.0 Hypertensive heart disease with heart failure; J44.9 Chronic obstructive pulmonary disease, unspecified; K21.9 Gastro-esophageal reflux disease without esophagitis; E53.8 Deficiency of other specified B group vitamins; G47.33 Obstructive sleep apnea (adult) (pediatric); E78.5 Hyperlipidemia, unspecified; Z86.718 Personal history of other venous thrombosis and embolism; F41.9 Anxiety disorder, unspecified; I27.20 Pulmonary hypertension, unspecified; B96.20 Unspecified Escherichia coli [E. coli] as the cause of diseases classified elsewhere; Z87.891 Personal history of nicotine dependence; F10.11 Alcohol abuse, in remission
CPT/HCPCS: 36415; 80048; 81001; 85025; 87086; 87088; 87186; 92507; 92523; 92526; 92610; 94003; 94640; 97110; 97116; 97162; 97166; 97530; 97535; 97802

== ENCOUNTER 2018-11-26 10:13 | Inpatient (IN) | payer MEDICARE, SELFPAY ==
[2018-11-15 14:52] VITALS: BMI 24.5
[2018-11-26] VITALS (16 sets, daily range): BP systolic 91–107; BP diastolic 30–66; PULSE 70–84; RESP 12–24; TEMP 36.3–37.3; O2SAT 91–100; BMI 21.4; BMI 22.6
--- NOTE | 2018-11-26 10:35 | CT_ITS ---
STUDY: CT BRAIN WITHOUT CONTRAST REASON FOR EXAM: Female, 63 years old. RADIATION DOSAGE (If Supplied By Facility): CTDIvol = ( 44.99 ) mGy, DLP = ( 796.11 ) mGycm TECHNIQUE: Transaxial CT imaging of the brain was performed without administration of intravenous contrast material. Individualized dose optimization techniques were used for this CT. COMPARISON: 10/30/2018 FINDINGS: Normal soft tissue structures. Normal calvarium. Normal size ventricles and extra-axial spaces for the patient's age. Encephalomalacia and gliosis of the posterior left parietal and right parieto-occipital lobe stable when compared to the prior study. Normal basal ganglia and thalami. Normal brainstem. Normal cerebellum. There is no intracranial hemorrhage. Similar mild mucosal thickening in the left maxillary sinus Similar mild mucosal thickening of the left maxillary sinus. Bony fragment inferior and lateral to the left nasal bone may represent an old fracture. CT/Brain/Head without Contrast IMPRESSION: 1. No acute intracranial hemorrhage or mass effect. 2. Stable sequela of remote infarctions. Electronically Signed: Anurag Mayer MD at 11:35 EDT , Service support ,
--- NOTE | 2018-11-26 10:36 | EKG12_ITS ---
Test Reason : Blood Pressure : / mmHG Vent. Rate : 081 BPM Atrial Rate : 081 BPM P-R Int : 124 ms QRS Dur : 086 ms QT Int : 376 ms P-R-T Axes : 075 054 069 degrees QTc Int : 436 ms Normal sinus rhythm Normal ECG Confirmed by LINDSEY DE LEON MD ([id number]), science editor AJ AYOUB ([id number]) on 11/30/2018 11:52:40 AM Referred By: Yelena Nichols Confirmed By:LINDSEY DE LEON MD
--- NOTE | 2018-11-26 10:45 | RAD_ITS ---
STUDY: X-RAY CHEST REASON FOR EXAM: Female, 63 years old. Shortness of breath TECHNIQUE: AP COMPARISON: 11/04/2018 FINDINGS: EKG leads project over the chest. Lungs are hyperinflated. No airspace consolidation. There is no demonstrated pleural abnormality. Normal size heart. Normal mediastinum and jacinto. Normal visualized pulmonary arteries. Normal visualized aortic arch and descending thoracic aorta. No acute bony process. There is no demonstrated abnormality of the visualized soft tissue structures of the upper abdomen. RAD/Chest 1 View (Portable) IMPRESSION: Nonacute portable x-ray examination of the chest. Hyperinflation suggesting chronic obstructive airway disease. Electronically Signed: Anurag Mayer MD at 11:10 EDT , Service support ,
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
[2018-11-26 11:10] LABS: Absolute Lymphocyte Count 1.48 X10^3/ul (0.83-4.51); Basophil# 0.03 X10^3/uL; Basophil% 0.5 % (0-1); Eosinophils% 1.6 % (0-5); Hematocrit 36.2 % (37-47); Hemoglobin 10.9 g/dl (12.0-15.0); Lymphocyte # 1.48 X10^3/ul (4.0); Lymphocyte % 23.6 % (19-41); Mean Corp Hgb Conc 30.1 g/gl (32-36); Mean Corpuscular Hgb 29.1 pg (27.0-32.0); Mean Corpuscular Volume 96.5 fL (81-99); Monocyte# 0.59 X10^3/uL; Monocyte% 9.4 % (0-10); Neutrophil # 4.02 X10^3/uL (2.7-7.7); Neutrophil % 64.1 % (47-70); Platelet Count 145 K/mm3 (150-450); RBC Distribution Width CV 13.5 % (11.6-14.6); RBC Distribution Width SD 47.3 fl (35.1-43.9); Red Blood Count 3.75 M/mm3 (4.2-5.4); White Blood Count 6.3 K/mm3 (4.4-11.0)
[2018-11-26 11:11] LABS: POSITIVE COUNT NO; POSITIVE DIFFERENTIAL NO; POSITIVE MORPHOLOGY NO
[2018-11-26 11:41] LABS: ALB/GLOB Ratio 0.9 RATIO (0.9-2.4); AST(SGOT) 26 U/L (15-37); Alanine Aminotransfer ALT/SGPT 34 U/L (13-56); Albumin, Serum 3.2 g/dL (3.2-5.0); Alkaline Phosphatase 86 U/L (45-117); Anion Gap 2 (5-15); BUN 14 mg/dL (7-18); BUN/Creat Ratio 20.6 RATIO (10-20); Calcium,Total 8.7 mg/dL (8.5-10.1); Chloride 98 mmol/L (98-107); Creatinine, Serum 0.68 mg/dL (0.55-1.02); EST Glomerular Filtration Rate 93 mL/min (>60); Est Glom Filt Rate - Afr Amer 112 mL/min (>60); Estimated Creatinine Clearance 72.17 ml/min; Globulin 3.5 g/dL (2.2-4.2); Glucose 97 mg/dL (74-106); Lactic Acid 0.6 mmol/L (0.4-2.0); Potassium 4.2 mmol/L (3.5-5.1); Protein, Total 6.7 g/dL (6.4-8.2); Sodium Level 143 mmol/L (136-145)
[2018-11-26 11:43] LABS: Bacteria 0 SEEN /hpf (None Seen); Mucous, Urine 0 SEEN /hpf (<or=2+); Red Blood Cells-Urine 0 SEEN /hpf (0-5); Squamous Epithelial Cells - UA 0 SEEN /hpf (5-10); White Blood Cells 0 SEEN /hpf (0-5)
[2018-11-26 11:51] LABS: Color, Urine Yellow (Yellow); Glucose, Dipstick Normal (Normal); Ketone-Dipstick Negative (Negative); Leukocyte Esterase-Dipstick Negative /ul (Negative); Nitrite-Dipstick Negative (Negative); Occult Blood-Urine 25 /ul (Negative); Protein-Dipstick Negative (Negative); Specific Gravity, Urine 1.015 (1.002-1.030); Urine Bilirubin Dipstick Negative (Negative); Urine Clarity Clear (Clear); Urine Urobilinogen Normal (Normal)
[2018-11-26] MEDS: 0.9% Normal Saline 1,000 ML 1000 ML IV (12:20)
[2018-11-26 12:36] LABS: Allen Test POS; Base Excess 15 mmol/L (-2 to +2); Bicarbonate 42.7 mmol/L (22-26); Blood Gas Specimen Type ART; O2 Delivery Device Nasal Can; PO2 148 mmHG (75-100); SITE R Radial; SO2 99 % (95-99); Time Given 1220; Total Carbon Dioxide 46 mmol/L; pCO2 101.2 mmHg (35-45); pH 7.23 (7.35-7.45)
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
--- NOTE | 2018-11-26 14:48 | CPS ---
1237: Critical value reported to DR. Sims. Placed on Bipap.
[2018-11-26] MEDS: Ipratropium/Albuterol Sulfate 3 ML AMPUL.NEB INHALATION ×2 (15:03→18:42)
[2018-11-26] MEDS: CLARIFY ORDER NOTE (15:34)
[2018-11-26] MEDS: Lactated Ringers 1,000 ML 60 ML IV (17:24)
[2018-11-26] MEDS: Zolpidem Tartrate 5 MG Tablet 2.5 MG PO (21:23)
[2018-11-26] MEDS: LORazepam 1 MG Tablet PO (21:23)
--- NOTE | 2018-11-26 21:39 | CPS ---
Patient's home IVAPS machine set-up and put on. Mask leak adjusted to proper levels with patient comfort. 2L of O2 bled into device. Hospital BiPAP on standby in room.
--- NOTE | 2018-11-26 23:00 | NURSING ---
Dr. Agee at bedside speaking with significant other on their wishes. Discussing if they want patient to be intubated or not and discussing her plan of care. also notified them that he was putting in orders for patient to be transferred to ICU.
--- NOTE | 2018-11-26 23:21 | CPS ---
Talked to discussing BiPAP settings. Settings changed to 18/6 for increased ventilatory support. gave verbal order to do Blood Gas in one hour after changes made.
--- NOTE | 2018-11-26 23:26 | PCM.HOSP.N ---
Hospitalist Note Patient was admitted today with confusion and lethargic. Patient has history of COPD with chronic hypercapnic respiratory failure. Patient has been on BiPAP and oxygen but noncompliant with frequent admissions for similar things. The patient is more lethargic, confused and disoriented. When talked to the patient's daughter Ms. Ameena Zhang, she wants all possible resuscitation measures including intubation, ventilator management, artificial nutrition and vasopressor support. Patient last blood gas is 7.23/1 101/148 on 2 L of oxygen. Patient is on BiPAP. BiPAP settings is increased to 18/6. Patient is being transferred to ICU for more close monitoring and if blood gas does not improve will need intubation. Biological Aide consult. Code Visit Procedures: [id number] Advncd Care Plan 30 Min
--- NOTE | 2018-11-26 23:35 | CCHN_ITS ---
Hospitalist Note Patient was admitted today with confusion and lethargic. Patient has history of COPD with chronic hypercapnic respiratory failure. Patient has been on BiPAP and oxygen but noncompliant with frequent admissions for similar things. The patient is more lethargic, confused and disoriented. When talked to the patient's daughter Ms. Ameena Zhang, she wants all possible resuscitation measures including intubation, ventilator management, artificial nutrition and vasopressor support. Patient last blood gas is 7.23/1 101/148 on 2 L of oxygen. Patient is on BiPAP. BiPAP settings is increased to 18/6. Patient is being transferred to ICU for more close monitoring and if blood gas does not improve will need intubation. Communications Field Technician consult. Code Visit Procedures: [id number] Advncd Care Plan 30 Min
--- NOTE | 2018-11-26 23:42 | NURSING ---
report called to ICU. spoke with FINESSE Holt. states she will call when they are ready for us to bring up patient.
--- NOTE | 2018-11-26 23:45 | NURSING ---
received call back from FINESSE Holt in ICU. okay to bring patient to floor at this time.
[2018-11-27] VITALS (37 sets, daily range): BP systolic 94–157; BP diastolic 34–105; PULSE 53–785; RESP 12–24; TEMP 35.8–36.8; O2SAT 88–100
[2018-11-27 00:41] LABS: Allen Test POS; Base Excess 17 mmol/L (-2 to +2); Bicarbonate 41.2 mmol/L (22-26); Blood Gas Specimen Type ART; EPAP 6; FI02 30; IPAP 18; PO2 61 mmHG (75-100); RR 12; SITE L Radial; SO2 90 % (95-99); Time Given 1232; Total Carbon Dioxide 43 mmol/L; pCO2 63.6 mmHg (35-45); pH 7.42 (7.35-7.45)
[2018-11-27] MEDS: Haloperidol Lactate 5 MG/ML Vial 2 MG IV (01:03)
[2018-11-27] MEDS: Ipratropium/Albuterol Sulfate 3 ML AMPUL.NEB INHALATION ×3 (06:41→19:17)
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
[2018-11-27 06:46] LABS: Absolute Neutrophil Count 3.3 X10^3/uL (2.0-7.7); Basophil# 0.01 X10^3/uL; Basophil% 0.2 % (0-1); Eosinophil# 0.07 X10^3/uL; Eosinophils% 1.3 % (0-5); Hematocrit 32.3 % (37-47); Lymphocyte % 24.7 % (19-41); Mean Corpuscular Hgb 29.3 pg (27.0-32.0); Mean Corpuscular Volume 94.7 fL (81-99); Mean Platelet Vol. 9.9 fl (6.2-12.0); Monocyte# 0.54 X10^3/uL; Monocyte% 10.2 % (0-10); Neutrophil # 3.33 X10^3/uL (2.7-7.7); Neutrophil % 63.2 % (47-70); Platelet Count 134 K/mm3 (150-450); RBC Distribution Width CV 13.5 % (11.6-14.6); RBC Distribution Width SD 46.5 fl (35.1-43.9); Red Blood Count 3.41 M/mm3 (4.2-5.4); White Blood Count 5.3 K/mm3 (4.4-11.0)
[2018-11-27 06:49] LABS: POSITIVE COUNT NO; POSITIVE DIFFERENTIAL NO; POSITIVE MORPHOLOGY NO
[2018-11-27 06:51] LABS: Anion Gap 3 (5-15); BUN 11 mg/dL (7-18); BUN/Creat Ratio 21.6 RATIO (10-20); Calcium,Total 8.6 mg/dL (8.5-10.1); Chloride 101 mmol/L (98-107); Creatinine, Serum 0.51 mg/dL (0.55-1.02); EST Glomerular Filtration Rate 129 mL/min (>60); Est Glom Filt Rate - Afr Amer 156 mL/min (>60); Estimated Creatinine Clearance 92.19 ml/min; Glucose 85 mg/dL (74-106); Potassium 3.8 mmol/L (3.5-5.1); Sodium Level 144 mmol/L (136-145)
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
[2018-11-27] MEDS: Folic Acid 1 MG Tablet PO (08:49)
[2018-11-27] MEDS: Aspirin E.C. 81 MG Tablet PO (08:49)
[2018-11-27] MEDS: Multivitamins,Ther W-Minerals Tablet 1 TABLET PO (08:49)
[2018-11-27] MEDS: Ensure Clear 120 ML Liquid PO (08:50)
[2018-11-27] MEDS: Pantoprazole Sodium 40 MG Tablet PO (09:53)
[2018-11-27] MEDS: Enoxaparin 40 MG/0.4 ML Syringe SC (09:54)
[2018-11-27] MEDS: Acetaminophen 325 MG Tablet 650 MG PO (09:54)
[2018-11-27] MEDS: Carvedilol 12.5 MG Tablet PO ×2 (11:19→21:20)
[2018-11-27] MEDS: Budesonide Respules 0.5 MG/2 ML AMPUL.NEB. INHALATION (19:24)
[2018-11-28] VITALS (24 sets, daily range): BP systolic 112–145; BP diastolic 39–120; PULSE 65–104; RESP 12–26; TEMP 36.1–36.9; O2SAT 92–99
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
--- NOTE | 2018-11-28 06:46 | PN_ITS ---
Subjective: Patient did okay overnight. Patient did wear BiPAP for approximately 7 hours with significant intervention by nursing and respiratory. Patient continues to ask for Ativan or Ambien for sleep aid. Staff did report decreased sleep overnight. Patient currently on 2 L nasal cannula, but remains confused. No bleeding has been noted. General: Alert, No apparent distress, Confused, Disoriented, - - No conversational dyspnea. HEENT: Atraumatic, PERRLA, EOMI, Normocephalic, - - Slight scleral injection Oral: Moist Mucosa, No Gingival or Mucosal Lesions/ Ulcerations Neck: Supple, No JVD, No Nodes, Trachea Midline Lungs: No rhonchi, No wheeze, No rales, Diminished, - - Symmetric expansion. No dullness to percussion. Cardiovascular: Regular rate, Regular Rhythm, Normal S1, Normal S2, No murmurs, No rub noted, No Gallop Abdomen: Bowel Sounds Present, Soft, Non Tender, Non-Distended Extremities: No cyanosis, No edema, Capillary Refill Less than 3 Seconds, Clubbing Skin: No rashes, No breakdown Musculoskeletal: No Tenderness to Palpation of Joints or Extremities Lymphatic: No Cervical, Supraclavicular, or Inguinal Adenopathy Neurological: Cranial nerves II-XII grossly intact, Neuro grossly intact, Motor Exam 5/5 strength throughout Psych/Mental Status: Impulsive, Restless Vital Signs Temp Pulse Resp BP Pulse Ox 36.2 C L 76 19 H 127/90 H 94 11/28/18 04:00 11/28/18 06:00 11/28/18 06:00 11/28/18 06:00 11/28/18 06:00 Oxygen Flow Rate (L/min) 2 Oxygen Delivery Method Nasal Cannula Weight: 58.5 kg Body Mass Index (BMI) 22.6 Finger Stick Blood Glucose 101 Intake and Output for Last 24 Hours 11/26/18 11/27/18 11/28/18 23:59 23:59 23:59 Intake Total 1100 / 1100 1669 / 1669 600 / 600 Output Total 150 / 150 600 / 600 450 / 450 Balance 950 / 950 1069 / 1069 150 / 150 Labs (Last 48 Hours) 11/26/18 11/26/18 11/26/18 11:00 11:00 11:00 WBC 6.3 RBC 3.75 L Hgb 10.9 L Hct 36.2 L MCV 96.5 MCH 29.1 MCHC 30.1 L RDW 13.5 RDW Differential 47.3 H Plt Count 145 L MPV 10.0 Immature Gran % (Auto) 0.800 Neut % (Auto) 64.1 Lymph % (Auto) 23.6 [place] % (Auto) 9.4 Eos % (Auto) 1.6 Baso % (Auto) 0.5 Absolute Neuts (auto) 4.0 Absolute Lymphs (auto) 1.48 Total Counted Not Reportable Specimen Type Sample Site pH Bicarbonate Actual POC Total CO2 Base Excess O2 Saturation O2 % ABG pCO2 ABG pO2 Royal Test Respiration Rate O2 Delivery Device Liter Flow EPAP IPAP Blood Gas Notified Whom Blood Gas Notified Time Sodium 143 Potassium 4.2 Chloride 98 Carbon Dioxide 43.0 H Anion Gap 2 L BUN 14 Creatinine 0.68 Estim Creat Clear Calc 72.17 Est GFR (MDRD) Af Amer 112 Est GFR (MDRD) Non-Af 93 BUN/Creatinine Ratio 20.6 H Glucose 97 Lactic Acid 0.6 Calcium 8.7 Total Bilirubin 0.40 AST 26 ALT 34 Alkaline Phosphatase 86 Troponin I < 0.015 Total Protein 6.7 Albumin 3.2 Globulin 3.5 Albumin/Globulin Ratio 0.9 Urine Color Urine Clarity Urine pH Ur Specific [place] Urine Protein Urine Glucose (UA) Urine Ketones Urine Occult Blood Urine Nitrite Urine Bilirubin Urine Urobilinogen Ur Leukocyte Esterase Urine RBC Urine WBC Ur Squamous Epith Cells Urine Bacteria Urine Mucus Urine Amphetamine U Amphetamines Confirm Urine Cocaine Confirm U Cocaine Metab Screen U Benzoylecgonine GC/MS Urine Ethyl Alcohol 11/26/18 11/26/18 11/26/18 11:38 11:38 12:30 WBC RBC Hgb Hct MCV MCH MCHC RDW RDW Differential Plt Count MPV Immature Gran % (Auto) Neut % (Auto) Lymph % (Auto) [place] % (Auto) Eos % (Auto) Baso % (Auto) Absolute Neuts (auto) Absolute Lymphs (auto) Total Counted Specimen Type ART Sample Site R Radial pH 7.23 L Bicarbonate Actual 42.7 H POC Total CO2 46 Base Excess 15 H O2 Saturation 99 O2 % ABG pCO2 101.2 H* ABG pO2 148 H Royal Test POS Respiration Rate O2 Delivery Device Nasal Can Liter Flow 2.0 EPAP IPAP Blood Gas Notified Whom ED Blood Gas Notified Time 1220 Sodium Potassium Chloride Carbon Dioxide Anion Gap BUN Creatinine Estim Creat Clear Calc Est GFR (MDRD) Af Amer Est GFR (MDRD) Non-Af BUN/Creatinine Ratio Glucose Lactic Acid Calcium Total Bilirubin AST ALT Alkaline Phosphatase Troponin I Total Protein Albumin Globulin Albumin/Globulin Ratio Urine Color Yellow Urine Clarity Clear Urine pH 6.0 Ur Specific [place] 1.015 Urine Protein Negative Urine Glucose (UA) Normal Urine Ketones Negative Urine Occult Blood 25 H Urine Nitrite Negative Urine Bilirubin Negative Urine Urobilinogen Normal Ur Leukocyte Esterase Negative Urine RBC 0 SEEN Urine WBC 0 SEEN Ur Squamous Epith Cells 0 SEEN Urine Bacteria 0 SEEN Urine Mucus 0 SEEN Urine Amphetamine Pending U Amphetamines Confirm Pending Urine Cocaine Confirm Pending U Cocaine Metab Screen Pending U Benzoylecgonine GC/MS Pending Urine Ethyl Alcohol Pending 11/27/18 11/27/18 11/27/18 00:36 06:20 06:20 WBC 5.3 RBC 3.41 L Hgb 10.0 L Hct 32.3 L MCV 94.7 MCH 29.3 MCHC 31.0 L RDW 13.5 RDW Differential 46.5 H Plt Count 134 L MPV 9.9 Immature Gran % (Auto) 0.400 Neut % (Auto) 63.2 Lymph % (Auto) 24.7 [place] % (Auto) 10.2 H Eos % (Auto) 1.3 Baso % (Auto) 0.2 Absolute Neuts (auto) 3.3 Absolute Lymphs (auto) 1.30 Total Counted Not Reportable Specimen Type ART Sample Site L Radial pH 7.42 Bicarbonate Actual 41.2 H POC Total CO2 43 Base Excess 17 H O2 Saturation 90 L O2 % 30 ABG pCO2 63.6 H ABG pO2 61 L Royal Test POS Respiration Rate 12 O2 Delivery Device Bi / C PAP Liter Flow EPAP 6 IPAP 18 Blood Gas Notified Whom [facility] Blood Gas Notified Time 1232 Sodium 144 Potassium 3.8 Chloride 101 Carbon Dioxide 40.0 H Anion Gap 3 L BUN 11 Creatinine 0.51 L Estim Creat Clear Calc 92.19 Est GFR (MDRD) Af Amer 156 Est GFR (MDRD) Non-Af 129 BUN/Creatinine Ratio 21.6 H Glucose 85 Lactic Acid Calcium 8.6 Total Bilirubin AST ALT Alkaline Phosphatase Troponin I Total Protein Albumin Globulin Albumin/Globulin Ratio Urine Color Urine Clarity Urine pH Ur Specific [place] Urine Protein Urine Glucose (UA) Urine Ketones Urine Occult Blood Urine Nitrite Urine Bilirubin Urine Urobilinogen Ur Leukocyte Esterase Urine RBC Urine WBC Ur Squamous Epith Cells Urine Bacteria Urine Mucus Urine Amphetamine U Amphetamines Confirm Urine Cocaine Confirm U Cocaine Metab Screen U Benzoylecgonine GC/MS Urine Ethyl Alcohol Medical Necessity - Tobacco Use Smoking Status: Former smoker Assessment/Plan All Active Problems (Last Updated 11/26/18 @ 13:20 by Yelena Nichols MD) CO2 narcosis (Acute) RECOMMENDATIONS: 1. Check urine toxicology screen. 2. Discontinue Ambien and Ativan. Avoid all future sedating medications. 3. Continue DuoNeb's and twice daily budesonide. 4. Maintain oxygen saturations 88 to 92%. 5. Continue BiPAP or AVAPS with naps and nightly. 6. CODE STATUS/goals of care discussion with family. IMPRESSIONS: 1. Acute on chronic combined respiratory failure secondary to noncompliance Patient with multiple similar type of admissions over the last 6 months. Patient was able to be recovered with discontinuation of sedating medications and placement of BiPAP therapy. Patient does remain confused today, but overall is doing well from a respiratory standpoint. No fever or purulent secretions have been noted overnight. Low clinical suspicion for acute infectious etiology. Patient likely will require placement in a care home if aggressive measures continue to be requested. 2. Chronic systolic congestive heart failure/coronary artery disease/hypertension/hyperlipidemia Patient appears to be at her baseline at this time. Patient did have a recent echocardiogram showing an EF of 40 to 45% with stage I diastolic dysfunction and moderate global hypokinesis of the left ventricle. Patient is on medical therapy at this time. Patient appears to be at her baseline at this time. 3. CODE STATUS Patient continues to ask for aggressive measures despite noncompliance with noninvasive therapy to avoid future complications. If patient continues to refuse noninvasive therapy, hospice measures would be appropriate. If patient wishes to be aggressive, permanent placement in a correction facility may be required to ensure compliance and limit repeated hospitalizations. 4. GERD/history of noncompliance/multiple surgeries/recurrent admissions Complicates care, management, recovery and prognosis. Okay to continue with PPI.
[2018-11-28] MEDS: Budesonide Respules 0.5 MG/2 ML AMPUL.NEB. INHALATION ×2 (06:57→18:52)
[2018-11-28] MEDS: Ipratropium/Albuterol Sulfate 3 ML AMPUL.NEB INHALATION ×4 (06:57→18:52)
--- NOTE | 2018-11-28 09:11 | PCM.PN.HOSP ---
Subjective: Follow up: encephalopathy Feels better. Breathing better. Wants to go home. Vitals/I&O's: Vital Signs Temp Pulse Resp BP Pulse Ox 36.2 C L 76 19 H 127/90 H 94 11/28/18 04:00 11/28/18 06:00 11/28/18 06:00 11/28/18 06:00 11/28/18 06:00 Oxygen Flow Rate (L/min) 2 Oxygen Delivery Method Nasal Cannula Weight: 58.5 kg Body Mass Index (BMI) 22.6 Finger Stick Blood Glucose 101 Intake and Output for Last 24 Hours 11/26/18 11/27/18 11/28/18 23:59 23:59 23:59 Intake Total 1100 / 1100 1669 / 1669 600 / 600 Output Total 150 / 150 600 / 600 450 / 450 Balance 950 / 950 1069 / 1069 150 / 150 General: Alert, No apparent distress, - - up in chair. afebrile. HEENT: Atraumatic, Normocephalic Neck: No Nodes, Thyroid Normal Size and Texture Lungs: Clear to auscultation, Diminished Cardiovascular: Regular rate, Regular Rhythm, Normal S1, Normal S2, No murmurs Abdomen: Bowel Sounds Present, Soft, Non Tender, Non-Distended, No Hepato-splenomegaly, Passing Flatus Extremities: No edema, No Calf Tenderness Skin: No rashes, No breakdown Musculoskeletal: No Tenderness to Palpation of Joints or Extremities, No Muscle Wasting Current Medications Acetaminophen (Tylenol) 650 mg PO Q6H PRN PRN PRN Reason: Mild pain 1-3/Temp > 100.7 F Last Admin: 11/27/18 09:54 Dose: 650 mg Albuterol Sulfate (Ventolin Aerosols) 2.5 mg INHALATION Q2H PRN PRN PRN Reason: SOB/Wheezing Albuterol/Ipratropium (Duoneb) 3 ml INHALATION Q4HWA.RT [facility] Last Admin: 11/28/18 06:57 Dose: 3 ml Aspirin (Ecotrin) 81 mg PO DAILY@0800 [facility] Last Admin: 11/27/18 08:49 Dose: 81 mg Budesonide (Pulmicort Aerosol) 0.5 mg INHALATION BID.RT [facility] Last Admin: 11/28/18 06:57 Dose: 0.5 mg Carvedilol (Coreg) 12.5 mg PO BID [facility] Last Admin: 11/27/18 21:20 Dose: 12.5 mg Enoxaparin Sodium (Lovenox) 40 mg SC DAILY@1000 [facility] Last Admin: 11/27/18 09:54 Dose: 40 mg Folic Acid (Folic Acid) 1 mg PO DAILY@0800 [facility] Last Admin: 11/27/18 08:49 Dose: 1 mg Sodium Chloride () 250 mls @ 15 mls/hr IV .[id number] PRN PRN Reason: SALINE FLUSH Magnesium Hydroxide (Milk Of Magnesia) 30 ml PO DAILY PRN PRN PRN Reason: Constipation Multivitamins/Minerals (Multivitamin With Minerals) 1 tablet PO DAILY@0800 [facility] Last Admin: 11/27/18 08:49 Dose: 1 tablet Nutritional Formula (Lactose Free) (Ensure Clear) 120 ml PO 4X/DAY [facility] Ondansetron HCl (Zofran) 4 mg IV Q8H PRN PRN PRN Reason: NAUSEA/VOMITING Pantoprazole Sodium (Protonix) 40 mg PO QAM [facility] Last Admin: 11/27/18 09:53 Dose: 40 mg Sodium Chloride () 5 - 15 ml IV UD PRN PRN Reason: SALINE FLUSH Spironolactone (Aldactone) 12.5 mg PO DAILY [facility] Throat Lozenges (Cepacol Sore Throat Lozenge) 1 lozenge MUCOUS MEM Q2H PRN PRN PRN Reason: Sore Throat/Cough Medical Necessity - Tobacco Use Smoking Status: Former smoker Assessment/Plan All Active Problems (Last Updated 11/26/18 @ 13:20 by Yelena Nichols MD) CO2 narcosis (Acute) 1. acute on chronic hypercapnic respiratory failure improved 2/2 medications and non-compliance with BiPAP improved and at baseline oxygen continue to hold lorazepam and zolpidem 2. Encephalopathy improved likely multifactorial: CO2 narcosis and medications 3. Debility seen by PT on 11/27 and noted patient was impulsive and recommended 24 h care: home v SNF suspect she could not get 24 h care at home either due to prohibitive cost or ensuring adequate family coverage CM to evaluate 11/29 4. VTE prophylaxis: LMWH Code Visit Inpatient E&M: 52819 Subs Hosp L2
--- NOTE | 2018-11-28 09:18 | PN_ITS ---
Subjective: Follow up: encephalopathy Feels better. Breathing better. Wants to go home. Vitals/I&O's: Vital Signs Temp Pulse Resp BP Pulse Ox 36.2 C L 76 19 H 127/90 H 94 11/28/18 04:00 11/28/18 06:00 11/28/18 06:00 11/28/18 06:00 11/28/18 06:00 Oxygen Flow Rate (L/min) 2 Oxygen Delivery Method Nasal Cannula Weight: 58.5 kg Body Mass Index (BMI) 22.6 Finger Stick Blood Glucose 101 Intake and Output for Last 24 Hours 11/26/18 11/27/18 11/28/18 23:59 23:59 23:59 Intake Total 1100 / 1100 1669 / 1669 600 / 600 Output Total 150 / 150 600 / 600 450 / 450 Balance 950 / 950 1069 / 1069 150 / 150 General: Alert, No apparent distress, - - up in chair. afebrile. HEENT: Atraumatic, Normocephalic Neck: No Nodes, Thyroid Normal Size and Texture Lungs: Clear to auscultation, Diminished Cardiovascular: Regular rate, Regular Rhythm, Normal S1, Normal S2, No murmurs Abdomen: Bowel Sounds Present, Soft, Non Tender, Non-Distended, No Hepato- splenomegaly, Passing Flatus Extremities: No edema, No Calf Tenderness Skin: No rashes, No breakdown Musculoskeletal: No Tenderness to Palpation of Joints or Extremities, No Muscle Wasting Current Medications Acetaminophen (Tylenol) 650 mg PO Q6H PRN PRN PRN Reason: Mild pain 1-3/Temp > 100.7 F Last Admin: 11/27/18 09:54 Dose: 650 mg Albuterol Sulfate (Ventolin Aerosols) 2.5 mg INHALATION Q2H PRN PRN PRN Reason: SOB/Wheezing Albuterol/Ipratropium (Duoneb) 3 ml INHALATION Q4HWA.RT [facility] Last Admin: 11/28/18 06:57 Dose: 3 ml Aspirin (Ecotrin) 81 mg PO DAILY@0800 [facility] Last Admin: 11/27/18 08:49 Dose: 81 mg Budesonide (Pulmicort Aerosol) 0.5 mg INHALATION BID.RT [facility] Last Admin: 11/28/18 06:57 Dose: 0.5 mg Carvedilol (Coreg) 12.5 mg PO BID [facility] Last Admin: 11/27/18 21:20 Dose: 12.5 mg Enoxaparin Sodium (Lovenox) 40 mg SC DAILY@1000 [facility] Last Admin: 11/27/18 09:54 Dose: 40 mg Folic Acid (Folic Acid) 1 mg PO DAILY@0800 [facility] Last Admin: 11/27/18 08:49 Dose: 1 mg Sodium Chloride () 250 mls @ 15 mls/hr IV .[id number] PRN PRN Reason: SALINE FLUSH Magnesium Hydroxide (Milk Of Magnesia) 30 ml PO DAILY PRN PRN PRN Reason: Constipation Multivitamins/Minerals (Multivitamin With Minerals) 1 tablet PO DAILY@0800 [facility] Last Admin: 11/27/18 08:49 Dose: 1 tablet Nutritional Formula (Lactose Free) (Ensure Clear) 120 ml PO 4X/DAY [facility] Ondansetron HCl (Zofran) 4 mg IV Q8H PRN PRN PRN Reason: NAUSEA/VOMITING Pantoprazole Sodium (Protonix) 40 mg PO QAM [facility] Last Admin: 11/27/18 09:53 Dose: 40 mg Sodium Chloride () 5 - 15 ml IV UD PRN PRN Reason: SALINE FLUSH Spironolactone (Aldactone) 12.5 mg PO DAILY [facility] Throat Lozenges (Cepacol Sore Throat Lozenge) 1 lozenge MUCOUS MEM Q2H PRN PRN PRN Reason: Sore Throat/Cough Medical Necessity - Tobacco Use Smoking Status: Former smoker Assessment/Plan All Active Problems (Last Updated 11/26/18 @ 13:20 by Yelena Nichols MD) CO2 narcosis (Acute) 1. acute on chronic hypercapnic respiratory failure * improved * 2/2 medications and non-compliance with BiPAP * improved and at baseline oxygen * continue to hold lorazepam and zolpidem 2. Encephalopathy * improved * likely multifactorial: CO2 narcosis and medications 3. Debility * seen by PT on 11/27 and noted patient was impulsive and recommended 24 h care: home v SNF * suspect she could not get 24 h care at home either due to prohibitive cost or ensuring adequate family coverage * CM to evaluate 11/29 4. VTE prophylaxis: LMWH Code Visit Inpatient E&M: 47027 Subs Hosp L2
[2018-11-28] MEDS: Multivitamins,Ther W-Minerals Tablet 1 TABLET PO (09:28)
[2018-11-28] MEDS: Pantoprazole Sodium 40 MG Tablet PO (09:28)
[2018-11-28] MEDS: Aspirin E.C. 81 MG Tablet PO (09:28)
[2018-11-28] MEDS: Carvedilol 12.5 MG Tablet PO ×2 (09:28→21:04)
[2018-11-28] MEDS: Folic Acid 1 MG Tablet PO (09:28)
[2018-11-28] MEDS: Enoxaparin 40 MG/0.4 ML Syringe SC (09:29)
--- NOTE | 2018-11-28 10:26 | NURSING ---
pt transfered to PCU at this time
[2018-11-28] MEDS: Acetaminophen 325 MG Tablet 650 MG PO (12:59)
--- NOTE | 2018-11-28 17:59 | CPS ---
Family brought in home BiPAP
--- NOTE | 2018-11-28 23:49 | NURSING ---
pt standing at side of bed stating she wants to go home. this RN has placed pt's O2 on her multiple times. pt is confused and needs constant redirection.
[2018-11-29] VITALS (8 sets, daily range): BP systolic 113–140; BP diastolic 56–67; PULSE 60–79; RESP 16–18; TEMP 36.4–36.6; O2SAT 92–97
[2018-11-29 01:53] LABS: Amphetamine Urine VISTA NEGATIVE (<1000 ng/mL); Barbiturate Urine VISTA NEGATIVE (< 200 ng/mL); Benzodiazepine Urine VISTA POSITIVE (< 200 ng/mL); Cocaine Urine VISTA NEGATIVE (< 300 ng/mL); Ecstacy Urine VISTA NEGATIVE (< 500 ng/mL); Methadone Urine VISTA NEGATIVE (< 300 ng/mL); PCP Urine VISTA NEGATIVE (< 25 ng/mL); THC Urine VISTA NEGATIVE (< 50 ng/mL); Vista UDS pH Range 6
[2018-11-29] MEDS: Budesonide Respules 0.5 MG/2 ML AMPUL.NEB. INHALATION (06:41)
[2018-11-29] MEDS: Ipratropium/Albuterol Sulfate 3 ML AMPUL.NEB INHALATION ×2 (06:41→10:22)
--- NOTE | 2018-11-29 07:01 | PCM.PN.PUL ---
Subjective: Patient did okay overnight. Patient is less confused this morning. Patient reports that she did wear her BiPAP overnight all night, but nursing staff report the patient had the mask on for approximately 1 to 2 hours. Patient is currently asking to go home. Patient denies any cough or increased shortness of breath. - Physical Exam General: Alert, Cooperative, Disoriented, - - No conversational dyspnea. Appears older than stated age. HEENT: Atraumatic, PERRLA, EOMI, Normocephalic, - - No scleral icterus or injection noted. Oral: Moist Mucosa, No Gingival or Mucosal Lesions/ Ulcerations Neck: Supple, No JVD, No Nodes, Trachea Midline Lungs: No rhonchi, No wheeze, No rales, Diminished, - - Symmetric expansion. No dullness to percussion. Cardiovascular: Regular rate, Regular Rhythm, Normal S1, Normal S2, No murmurs, No rub noted, No Gallop Abdomen: Bowel Sounds Present, Soft, Non Tender, Non-Distended Extremities: No cyanosis, No edema, Capillary Refill Less than 3 Seconds, Clubbing Skin: No rashes, No breakdown Musculoskeletal: No Tenderness to Palpation of Joints or Extremities Lymphatic: No Cervical, Supraclavicular, or Inguinal Adenopathy Neurological: Cranial nerves II-XII grossly intact, Neuro grossly intact, Motor Exam 5/5 strength throughout Psych/Mental Status: Impulsive, Restless Vital Signs Temp Pulse Resp BP Pulse Ox 36.6 C 74 18 140/67 H 92 11/29/18 03:25 11/29/18 03:25 11/29/18 03:25 11/29/18 03:25 11/29/18 03:25 Oxygen Flow Rate (L/min) 2 Oxygen Delivery Method Room Air Weight: 58.8 kg Body Mass Index (BMI) 22.6 Finger Stick Blood Glucose 101 Intake and Output for Last 24 Hours 11/27/18 11/28/18 11/29/18 23:59 23:59 23:59 Intake Total 1669 / 1669 1200 / 1200 240 / 240 Output Total 600 / 600 450 / 450 200 / 200 Balance 1069 / 1069 750 / 750 40 / 40 Laboratory Tests Past 24 Hrs 11/26/18 11/29/18 11:38 01:30 Ur Butalbital Screen Cancelled Ur Butalbital Confirm Cancelled Urine Opiates Screen NEGATIVE Ur Opiates, Quant Cancelled Ur Opiates Confirm Cancelled Urine Codeine Confirm Cancelled Urine Morphine Cancelled Ur Morphine Confirm Cancelled Urine Methadone Screen NEGATIVE Ur Barbiturates Screen NEGATIVE Urine Barbiturates Cancelled Ur Barbiturate Confirm Cancelled Ur Phencyclidine Scrn NEGATIVE Urine PCP Confirm Cancelled Ur PCP Confirm (GC/MS) Cancelled U Phencyclidine Interp Cancelled Ur Amphetamines Screen NEGATIVE Urine Amphetamine Cancelled U Amphetamines Confirm Cancelled Urine Methamphetamines Cancelled U Methamphetamin Confrm Cancelled U Methamphetamin-MDMA NEGATIVE Ur Amobarbital Screen Cancelled Ur Amobarbital GC/MS Cancelled U Pentobarbital Scrn Cancelled U Pentobarbital GC/MS Cancelled U Phenobarbital Scrn Cancelled U Phenobarbital GC/MS Cancelled U Secobarbital Screen Cancelled U Secobarbital GC/MS Cancelled U OH-Alprazolam Screen Cancelled U OH-Alprazolam Confrm Cancelled U Benzodiazepines Scrn Cancelled POSITIVE H U Benzodiazepine Confm Cancelled Ur Nordiazepam Cancelled Ur Nordiazepam GC/MS Cancelled Ur Oxazepam Screen Cancelled U Oxazepam Confm GC/MS Cancelled Urine Cocaine Screen NEGATIVE Urine Cocaine Cancelled Urine Cocaine Confirm Cancelled U Cocaine Metab Screen Cancelled U Benzoylecgonine GC/MS Cancelled U Cannabinoids Screen NEGATIVE Urine Cannabinoids Cancelled U Cannabinoids Confirm Cancelled Ur Carboxy THC Confirm Cancelled Ur Carboxy THC GC/MS Cancelled Ur Drug Screen Comment Ethyl Alcohol Cancelled Urine Ethyl Alcohol Cancelled Medical Necessity - Tobacco Use Smoking Status: Former smoker Assessment/Plan All Active Problems (Last Updated 11/26/18 @ 13:20 by Yelena Nichols MD) CO2 narcosis (Acute) RECOMMENDATIONS: 1. Continue to encourage BiPAP/AVAPS with sleep 2. Discontinue Ambien and Ativan. Avoid all future sedating medications. 3. Continue DuoNeb's and twice daily budesonide. 4. Maintain oxygen saturations 88 to 92%. 5. Patient should be discharged to ECF or hospice depending on goals of therapy 6. Do not believe patient can be discharged home under her own recognizance IMPRESSIONS: 1. Acute on chronic combined respiratory failure secondary to noncompliance Patient with multiple similar type of admissions over the last 6 months. Patient was able to be recovered with discontinuation of sedating medications and placement of BiPAP therapy. Patient still remains somewhat confused today, but overall is doing well from a respiratory standpoint. No fever or purulent secretions have been noted overnight. Low clinical suspicion for acute infectious etiology. Patient likely will require placement in a assisted if aggressive measures continue to be requested. Discharge home will likely result in repeated admissions secondary to noncompliance with BiPAP therapy. Patient has received no change in therapy other than initiation of BiPAP during this hospitalization. 2. Chronic systolic congestive heart failure/coronary artery disease/hypertension/hyperlipidemia Patient appears to be at her baseline at this time. Patient did have a recent echocardiogram showing an EF of 40 to 45% with stage I diastolic dysfunction and moderate global hypokinesis of the left ventricle. Patient is on medical therapy at this time. Patient appears to be at her baseline at this time. 3. CODE STATUS Patient continues to ask for aggressive measures despite noncompliance with noninvasive therapy to avoid future complications. If patient continues to refuse noninvasive therapy, hospice measures would be appropriate. If patient wishes to be aggressive, permanent placement in a residential facility may be required to ensure compliance and limit repeated hospitalizations. Hospice would be appropriate if patient were agreeable. 4. GERD/history of noncompliance/multiple surgeries/recurrent admissions Complicates care, management, recovery and prognosis. Okay to continue with PPI. Code Visit Inpatient E&M: 40475 [facility] Hosp L2
[2018-11-29] MEDS: Enoxaparin 40 MG/0.4 ML Syringe SC (09:09)
[2018-11-29] MEDS: Aspirin E.C. 81 MG Tablet PO (09:09)
[2018-11-29] MEDS: Pantoprazole Sodium 40 MG Tablet PO (09:09)
[2018-11-29] MEDS: Folic Acid 1 MG Tablet PO (09:09)
[2018-11-29] MEDS: Carvedilol 12.5 MG Tablet PO (09:09)
[2018-11-29] MEDS: Multivitamins,Ther W-Minerals Tablet 1 TABLET PO (09:09)
[2018-11-29] MEDS: Spironolactone 25 MG Tablet 12.5 MG PO (09:13)
--- NOTE | 2018-11-29 11:07 | CASEMGMT ---
Addendum entered by Genoveva Gutierrez 11/29/18 11:57: Per Dr Su, pt is ready for discharge today. Call placed to pt's daughter, Ameena, and she was made aware and also made aware there is no bed available in TCU. She stated, well that's okay. I will just go home with her and between me and my daughter and her boyfriend, we will ensure that she has 24-hr care. She states they are also going to make sure she keeps that mask on at night. Ameena states she will be coming into hospital soon so that she will be here and ready to take pt home when she is discharged. FINESSE Cotrez, made aware of discharge plan. Call placed to Maria Isabel @ [facility] and she was made aware pt is discharging today. Resumption order placed for [facility]: half-way and PT/OT eval and treat added. Maria Isabel made aware. Original Note: FINESSE LALA NOTE: Re-admission note: Pt has had several admissions this year to [facility]. Last admission was 10/31/18 thru 11/05/18 and was discharged to TCU. After discharge from TCU, pt returned home w/[facility]. Pt re-admitted 11/26/18 to PCU for Acute on Chronic Hypercapnic resp failure. Pt has home oxygen and BIPAP at home but is non-compliant. Call placed to pt's daughter, Ameena/CATALINA in length about discharge plan. Ameena states she is aware pt is needing 24-hour care and that she and her daughter (pt's granddaughter) are willing and prepared to go stay with her mother in her home where she lives with her boyfriend, Nasim. Discussed ECF. Ameena states she does not want pt going somewhere to be taken care of by strangers for an extended stay. Discussed concerns with Ameena about pt being confused, very unsteady and at risk for falling, impulsiveness, and non-compliance with BIPAP. Ameena states she is aware of this and states, I know she can be a handful but we are wanting to take care of her ourselves. Ameena lauren is interested in pt returning to TCU for a few more days, if possible, before returning home. Ameena states if TCU not available, then she wishes for pt to return home with resumption of [facility]. Discussed DME pt currently has available and other DME needed in the event that pt does return home. Ameena confirms pt does have oxygen at home, nebulizer, BIPAP, and also has a walker that she does not use. States she does not have a BSC but does not feel that she needs one, stating, the way the house is set up, the bathroom is right there and she is able to get there without any problems. Ameena instructed to inform [facility] if she feels she would benefit from BSC. Korin HILLN RN CM
--- NOTE | 2018-11-29 11:57 | DCINST_ITS ---
- Discharge Diagnoses Current Active Problems: Current Active and Chronic Problems (Last Updated 11/26/18 @ 13:20 by Yelena Nichols MD) Chronic anemia (Chronic) You will use the following diet at home:: Cardiac Your food should be the consistency of: Regular Your liquids should be the consistency of: Regular/Thin Discharge Activity: Return to Normal Activity Call your doctor if you observe: Fever of 101 or Higher, Shortness of breath, - - confusion Allergies/Adverse Reactions: Allergies tetanus and diphtheria toxoids [tetanus & diphtheria toxoids] Allergy (Verified 11/26/18 10:15) Hives Medications to take at Discharge Albuterol IH (ProAir) [Proair Hfa] 1 puff INHALATION Q4H PRN PRN #1 inhaler 09/17/17 Multivitamin with Minerals [Multiple Vitamin] 1 tab PO DAILY 09/14/18 Pantoprazole Sodium 40 mg PO QAM 09/14/18 Spironolactone 12.5 mg PO DAILY 09/14/18 Aspirin E.C. [Ecotrin] 81 mg PO DAILY 11/05/18 Carvedilol [Coreg (Beta Indy)] 12.5 mg PO BID 11/05/18 Ipratropium/Albuterol Sulfate [Duoneb] 3 ml INHALATION 4X/DAY 11/05/18 Acetaminophen [Tylenol] 1,000 mg PO Q6H PRN PRN tab 11/15/18 Folic Acid 1 mg PO DAILY #30 tab 11/15/18 Menthol/Lanolin/Calamine/Znox [Calmoseptine Ointment] 1 applic TOPICAL 0600,2200 tube 11/15/18 Primary Care Physician: Glenn Ulloa MD [Primary Care Provider] - Within 1 Week Please follow up with your Primary Care Physician in: 11/30/18 Test Results: Test results from this visit will be discussed in further detail at your follow- up appointment, if applicable. Please Follow Up With: Anurag Falnnery DO When: 02/22/19 Please Follow Up With: Shahzad Long MD When: 12/22/18 Please Follow Up With: Severo Neal NP-C When: 12/02/18 Proposed Discharge Date: 11/29/18
--- NOTE | 2018-11-29 11:58 | PCM.DC.SUM ---
Discharge Date and Diagnosis Date of Admission: 11/26/18 Date of Discharge: 11/29/18 - Primary Discharge Diagnosis 1. acute on chronic hypercapnic respiratory failure improved 2/2 medications and non-compliance with BiPAP improved and at baseline oxygen continue to hold lorazepam and zolpidem full code status. 2. Encephalopathy improved likely multifactorial: CO2 narcosis and medications Lorazepam and zolpidem DC'd and will be continue to held on discharge Family concerned about withdrawal. Clinically, today and yesterday, was not manifesting any withdrawal type symptoms on my evaluations. Received lorazepam on 11/16 and it appears that the zolpidem was decreased from 10 to 5. 3. Debility seen by PT on 11/27 and noted patient was impulsive and recommended 24 h care: home v SNF TCU does not have any beds. Family preferring to take patient home with [facility]. 4. Prognosis: poor. complicated by her non-compliance with BiPAP. Wishes to be full code. Consider palliative care if patient and family agree. - Secondary Discharge Diagnosis Chronic Problems (Last Updated 11/26/18 @ 13:20 by Yelena Nichols MD) Pulmonary HTN (Chronic) GERD (gastroesophageal reflux disease) (Chronic) Alcohol abuse (Chronic) DVT (deep venous thrombosis) (Chronic) Chronic anemia (Chronic) Hypotension arterial (Chronic) TIO (obstructive sleep apnea) (Chronic) History of stroke (Chronic 02/03/17) Right occipital lobe and left posterior superior parietal lobe per CT;later determined as hemorrhagic per MRI developed NSTEMI shortly after but no intervention d/t GI bleed History of non-ST elevation myocardial infarction (NSTEMI) (Chronic 02/03/17) History of DVT of lower extremity (Chronic 02/11/17) Rt lower extremity pinky vein Acid-base disorder, mixed (Chronic) Insomnia (Chronic) Anxiety (Chronic) Hyperlipidemia (Chronic) Hypertension (Chronic) Daytime hypersomnia (Chronic) H/O: section (Chronic) History of lumpectomy (Chronic) History of cholecystectomy (Chronic) Hemorrhagic cerebrovascular accident (CVA) (Chronic) Heart failure with reduced ejection fraction (Chronic) COPD (chronic obstructive pulmonary disease) (Chronic) Hospital Course and Treatment Imaging Results: Clinical Impression(s) from Imaging Studies Brain CT 11/26/18 10:35 IMPRESSION: 1. No acute intracranial hemorrhage or mass effect. 2. Stable sequela of remote infarctions. Electronically Signed: Anurag Mayer MD at 11:35 EDT , Service support , Chest X-Ray 11/26/18 10:45 IMPRESSION: Nonacute portable x-ray examination of the chest. Hyperinflation suggesting chronic obstructive airway disease. Electronically Signed: Anurag Mayer MD at 11:10 EDT , Service support , Mike Duarte MD Operations: None Procedures: None Summary of Care Provided: The patient is a 63 year old F presents with confusion. ABG consistent with respiratory acidosis and CO2 narcosis. PCO2 was 101.2. Patient is been noncompliant with her BiPAP and also been taking lorazepam as well as zolpidem. Likely combination of those medications as well as her noncompliance with her BiPAP culminated in her confusion. Patient is been doing better since being put on a BiPAP and her ABGs have subsequently improved. The lorazepam as well as zolpidem were discontinued. Forde is concerned about the patient going through withdrawal symptoms but on my evaluation the patient was not manifesting withdrawal symptoms of either on medications. Irregardless patient is to continue to hold those medications as the risk of those medications far outweigh any benefits that she may derive from them. Patient procedure being full code certainly complicates this picture. Preferably patient not be DNR Comfort Care arrest with no intubation and may be an appropriate candidate for palliative care assistance on outpatient basis. With her continued noncompliance with BiPAP patient is a high likelihood of returning to the hospital. Patient is very debilitated and was recommended patient have 24-hour assistance at home or to go to a long-term facility. Family is preferring to go to the TCU, however they do not have any beds, family stated that since that he is he did not have any beds that they would take the patient home with home health care. [] - Physical Exam General: Alert, No apparent distress HEENT: Atraumatic, Normocephalic Oral: Moist Mucosa, No Gingival or Mucosal Lesions/ Ulcerations Neck: No Nodes, Thyroid Normal Size and Texture Lungs: Clear to auscultation, Diminished Cardiovascular: Regular rate, Regular Rhythm, Normal S1, Normal S2, No murmurs Abdomen: Bowel Sounds Present, Soft, Non Tender, Non-Distended, No Hepato-splenomegaly Extremities: No edema, No Calf Tenderness Vital Signs Temp Pulse Resp BP Pulse Ox 36.4 C L 60 16 121/56 H 97 11/29/18 09:03 11/29/18 10:59 11/29/18 10:23 11/29/18 09:03 11/29/18 09:03 Oxygen Flow Rate (L/min) 2 Oxygen Delivery Method Nasal Cannula Weight: 58.8 kg Body Mass Index (BMI) 22.6 Finger Stick Blood Glucose 101 Intake and Output for Last 24 Hours 11/27/18 11/28/18 11/29/18 23:59 23:59 23:59 Intake Total 1669 / 1669 1200 / 1200 240 / 240 Output Total 600 / 600 450 / 450 200 / 200 Balance 1069 / 1069 750 / 750 40 / 40 Laboratory Tests Past 24 Hrs 11/26/18 11/29/18 11:38 01:30 Ur Butalbital Screen Cancelled Ur Butalbital Confirm Cancelled Urine Opiates Screen NEGATIVE Ur Opiates, Quant Cancelled Ur Opiates Confirm Cancelled Urine Codeine Confirm Cancelled Urine Morphine Cancelled Ur Morphine Confirm Cancelled Urine Methadone Screen NEGATIVE Ur Barbiturates Screen NEGATIVE Urine Barbiturates Cancelled Ur Barbiturate Confirm Cancelled Ur Phencyclidine Scrn NEGATIVE Urine PCP Confirm Cancelled Ur PCP Confirm (GC/MS) Cancelled U Phencyclidine Interp Cancelled Ur Amphetamines Screen NEGATIVE Urine Amphetamine Cancelled U Amphetamines Confirm Cancelled Urine Methamphetamines Cancelled U Methamphetamin Confrm Cancelled U Methamphetamin-MDMA NEGATIVE Ur Amobarbital Screen Cancelled Ur Amobarbital GC/MS Cancelled U Pentobarbital Scrn Cancelled U Pentobarbital GC/MS Cancelled U Phenobarbital Scrn Cancelled U Phenobarbital GC/MS Cancelled U Secobarbital Screen Cancelled U Secobarbital GC/MS Cancelled U OH-Alprazolam Screen Cancelled U OH-Alprazolam Confrm Cancelled U Benzodiazepines Scrn Cancelled POSITIVE H U Benzodiazepine Confm Cancelled Ur Nordiazepam Cancelled Ur Nordiazepam GC/MS Cancelled Ur Oxazepam Screen Cancelled U Oxazepam Confm GC/MS Cancelled Urine Cocaine Screen NEGATIVE Urine Cocaine Cancelled Urine Cocaine Confirm Cancelled U Cocaine Metab Screen Cancelled U Benzoylecgonine GC/MS Cancelled U Cannabinoids Screen NEGATIVE Urine Cannabinoids Cancelled U Cannabinoids Confirm Cancelled Ur Carboxy THC Confirm Cancelled Ur Carboxy THC GC/MS Cancelled Ur Drug Screen Comment Ethyl Alcohol Cancelled Urine Ethyl Alcohol Cancelled Discharge Diet: Low fat/ Low Cholesterol Discharge Activity: Return to Normal Activity Call your doctor if you observe: Fever of 101 or Higher, Shortness of breath, - - confusion Home Medications: Medications to take at Discharge Albuterol IH (ProAir) [Proair Hfa] 1 puff INHALATION Q4H PRN PRN #1 inhaler 09/17/17 Multivitamin with Minerals [Multiple Vitamin] 1 tab PO DAILY 09/14/18 Pantoprazole Sodium 40 mg PO QAM 09/14/18 Spironolactone 12.5 mg PO DAILY 09/14/18 Aspirin E.C. [Ecotrin] 81 mg PO DAILY 11/05/18 Carvedilol [Coreg (Beta Indy)] 12.5 mg PO BID 11/05/18 Ipratropium/Albuterol Sulfate [Duoneb] 3 ml INHALATION 4X/DAY 11/05/18 Acetaminophen [Tylenol] 1,000 mg PO Q6H PRN PRN tab 11/15/18 Folic Acid 1 mg PO DAILY #30 tab 11/15/18 Menthol/Lanolin/Calamine/Znox [Calmoseptine Ointment] 1 applic TOPICAL 0600,2200 tube 11/15/18 Primary Care Physician: Glenn Ullao MD [Primary Care Provider] - Within 1 Week Please follow up with your Primary Care Physician in: 11/30/18 Please Follow Up With: Anurag Flannery DO When: 02/22/19 Please Follow Up With: Shahzad Long MD When: 12/22/18 Please Follow Up With: Severo Neal MARBLE CUTTER-C When: 12/02/18 Disposition: Home with Home Health Minutes spent on discharge:: 35 Patient Condition:: Stable Medical Necessity - Tobacco Use Smoking Status: Former smoker Meaningful Use Info Meaningful Use Diagnoses (Choose all that apply): None applicable Code Visit Inpatient E&M: 78859 Disch Hosp
--- NOTE | 2018-11-29 12:03 | DS.PCM_ITS ---
Discharge Date and Diagnosis Date of Admission: 11/26/18 Date of Discharge: 11/29/18 - Primary Discharge Diagnosis 1. acute on chronic hypercapnic respiratory failure * improved * 2/2 medications and non-compliance with BiPAP * improved and at baseline oxygen * continue to hold lorazepam and zolpidem * full code status. 2. Encephalopathy * improved * likely multifactorial: CO2 narcosis and medications * Lorazepam and zolpidem DC'd and will be continue to held on discharge * Family concerned about withdrawal. Clinically, today and yesterday, was not manifesting any withdrawal type symptoms on my evaluations. * Received lorazepam on 11/16 and it appears that the zolpidem was decreased from 10 to 5. 3. Debility * seen by PT on 11/27 and noted patient was impulsive and recommended 24 h care: home v SNF * TCU does not have any beds. Family preferring to take patient home with [facility]. 4. Prognosis: poor. complicated by her non-compliance with BiPAP. Wishes to be full code. Consider palliative care if patient and family agree. - Secondary Discharge Diagnosis Chronic Problems (Last Updated 11/26/18 @ 13:20 by Yelena Nichols MD) Pulmonary HTN (Chronic) GERD (gastroesophageal reflux disease) (Chronic) Alcohol abuse (Chronic) DVT (deep venous thrombosis) (Chronic) Chronic anemia (Chronic) Hypotension arterial (Chronic) TIO (obstructive sleep apnea) (Chronic) History of stroke (Chronic 02/03/17) Right occipital lobe and left posterior superior parietal lobe per CT;later determined as hemorrhagic per MRI developed NSTEMI shortly after but no intervention d/t GI bleed History of non-ST elevation myocardial infarction (NSTEMI) (Chronic 02/03/17) History of DVT of lower extremity (Chronic 02/11/17) Rt lower extremity pinky vein Acid-base disorder, mixed (Chronic) Insomnia (Chronic) Anxiety (Chronic) Hyperlipidemia (Chronic) Hypertension (Chronic) Daytime hypersomnia (Chronic) H/O: section (Chronic) History of lumpectomy (Chronic) History of cholecystectomy (Chronic) Hemorrhagic cerebrovascular accident (CVA) (Chronic) Heart failure with reduced ejection fraction (Chronic) COPD (chronic obstructive pulmonary disease) (Chronic) Hospital Course and Treatment Imaging Results: Clinical Impression(s) from Imaging Studies Brain CT 11/26/18 10:35 IMPRESSION: 1. No acute intracranial hemorrhage or mass effect. 2. Stable sequela of remote infarctions. Electronically Signed: Anurag Mayer MD at 11:35 EDT , Service support , Chest X-Ray 11/26/18 10:45 IMPRESSION: Nonacute portable x-ray examination of the chest. Hyperinflation suggesting chronic obstructive airway disease. Electronically Signed: Anurag Mayer MD at 11:10 EDT , Service support , Mike Duarte MD Operations: None Procedures: None Summary of Care Provided: The patient is a 63 year old F presents with confusion. ABG consistent with respiratory acidosis and CO2 narcosis. PCO2 was 101.2. Patient is been noncompliant with her BiPAP and also been taking lorazepam as well as zolpidem. Likely combination of those medications as well as her noncompliance with her BiPAP culminated in her confusion. Patient is been doing better since being put on a BiPAP and her ABGs have subsequently improved. The lorazepam as well as zolpidem were discontinued. Forde is concerned about the patient going through withdrawal symptoms but on my evaluation the patient was not manifesting withdrawal symptoms of either on medications. Irregardless patient is to continue to hold those medications as the risk of those medications far outweigh any benefits that she may derive from them. Patient procedure being full code certainly complicates this picture. Preferably patient not be DNR Comfort Care arrest with no intubation and may be an appropriate candidate for palliative care assistance on outpatient basis. With her continued noncompliance with BiPAP patient is a high likelihood of returning to the hospital. Patient is very debilitated and was recommended patient have 24-hour assistance at home or to go to a prison facility. Family is preferring to go to the TCU, however they do not have any beds, family stated that since that he is he did not have any beds that they would take the patient home with home health care. [] - Physical Exam General: Alert, No apparent distress HEENT: Atraumatic, Normocephalic Oral: Moist Mucosa, No Gingival or Mucosal Lesions/ Ulcerations Neck: No Nodes, Thyroid Normal Size and Texture Lungs: Clear to auscultation, Diminished Cardiovascular: Regular rate, Regular Rhythm, Normal S1, Normal S2, No murmurs Abdomen: Bowel Sounds Present, Soft, Non Tender, Non-Distended, No Hepato- splenomegaly Extremities: No edema, No Calf Tenderness Vital Signs Temp Pulse Resp BP Pulse Ox 36.4 C L 60 16 121/56 H 97 11/29/18 09:03 11/29/18 10:59 11/29/18 10:23 11/29/18 09:03 11/29/18 09:03 Oxygen Flow Rate (L/min) 2 Oxygen Delivery Method Nasal Cannula Weight: 58.8 kg Body Mass Index (BMI) 22.6 Finger Stick Blood Glucose 101 Intake and Output for Last 24 Hours 11/27/18 11/28/18 11/29/18 23:59 23:59 23:59 Intake Total 1669 / 1669 1200 / 1200 240 / 240 Output Total 600 / 600 450 / 450 200 / 200 Balance 1069 / 1069 750 / 750 40 / 40 Laboratory Tests Past 24 Hrs 11/26/18 11/29/18 11:38 01:30 Ur Butalbital Screen Cancelled Ur Butalbital Confirm Cancelled Urine Opiates Screen NEGATIVE Ur Opiates, Quant Cancelled Ur Opiates Confirm Cancelled Urine Codeine Confirm Cancelled Urine Morphine Cancelled Ur Morphine Confirm Cancelled Urine Methadone Screen NEGATIVE Ur Barbiturates Screen NEGATIVE Urine Barbiturates Cancelled Ur Barbiturate Confirm Cancelled Ur Phencyclidine Scrn NEGATIVE Urine PCP Confirm Cancelled Ur PCP Confirm (GC/MS) Cancelled U Phencyclidine Interp Cancelled Ur Amphetamines Screen NEGATIVE Urine Amphetamine Cancelled U Amphetamines Confirm Cancelled Urine Methamphetamines Cancelled U Methamphetamin Confrm Cancelled U Methamphetamin-MDMA NEGATIVE Ur Amobarbital Screen Cancelled Ur Amobarbital GC/MS Cancelled U Pentobarbital Scrn Cancelled U Pentobarbital GC/MS Cancelled U Phenobarbital Scrn Cancelled U Phenobarbital GC/MS Cancelled U Secobarbital Screen Cancelled U Secobarbital GC/MS Cancelled U OH-Alprazolam Screen Cancelled U OH-Alprazolam Confrm Cancelled U Benzodiazepines Scrn Cancelled POSITIVE H U Benzodiazepine Confm Cancelled Ur Nordiazepam Cancelled Ur Nordiazepam GC/MS Cancelled Ur Oxazepam Screen Cancelled U Oxazepam Confm GC/MS Cancelled Urine Cocaine Screen NEGATIVE Urine Cocaine Cancelled Urine Cocaine Confirm Cancelled U Cocaine Metab Screen Cancelled U Benzoylecgonine GC/MS Cancelled U Cannabinoids Screen NEGATIVE Urine Cannabinoids Cancelled U Cannabinoids Confirm Cancelled Ur Carboxy THC Confirm Cancelled Ur Carboxy THC GC/MS Cancelled Ur Drug Screen Comment Ethyl Alcohol Cancelled Urine Ethyl Alcohol Cancelled Discharge Diet: Low fat/ Low Cholesterol Discharge Activity: Return to Normal Activity Call your doctor if you observe: Fever of 101 or Higher, Shortness of breath, - - confusion Home Medications: Medications to take at Discharge Albuterol IH (ProAir) [Proair Hfa] 1 puff INHALATION Q4H PRN PRN #1 inhaler 09/17/17 Multivitamin with Minerals [Multiple Vitamin] 1 tab PO DAILY 09/14/18 Pantoprazole Sodium 40 mg PO QAM 09/14/18 Spironolactone 12.5 mg PO DAILY 09/14/18 Aspirin E.C. [Ecotrin] 81 mg PO DAILY 11/05/18 Carvedilol [Coreg (Beta Indy)] 12.5 mg PO BID 11/05/18 Ipratropium/Albuterol Sulfate [Duoneb] 3 ml INHALATION 4X/DAY 11/05/18 Acetaminophen [Tylenol] 1,000 mg PO Q6H PRN PRN tab 11/15/18 Folic Acid 1 mg PO DAILY #30 tab 11/15/18 Menthol/Lanolin/Calamine/Znox [Calmoseptine Ointment] 1 applic TOPICAL 0600,2200 tube 11/15/18 Primary Care Physician: Glenn Ulloa MD [Primary Care Provider] - Within 1 Week Please follow up with your Primary Care Physician in: 11/30/18 Please Follow Up With: Anurag Flannery DO When: 02/22/19 Please Follow Up With: Shahzad Long MD When: 12/22/18 Please Follow Up With: Severo Neal NP-C When: 12/02/18 Disposition: Home with Home Health Minutes spent on discharge:: 35 Patient Condition:: Stable Medical Necessity - Tobacco Use Smoking Status: Former smoker Meaningful Use Info Meaningful Use Diagnoses (Choose all that apply): None applicable Code Visit Inpatient E&M: 81729 Disch Hosp
--- NOTE | 2018-11-29 12:21 | PHA.DC.MR ---
Pharmacy Service has performed discharge medication reconciliation for this patient. No new medications for this patient on this admission, medication review from previously reported home medications. The patient's discharge medication list was reviewed for discrepancies and discrepancies were resolved. Home Medications Albuterol IH (ProAir) [Proair Hfa] 1 puff INHALATION Q4H PRN PRN #1 inhaler 09/17/17 Multivitamin with Minerals [Multiple Vitamin] 1 tab PO DAILY 09/14/18 Pantoprazole Sodium 40 mg PO QAM 09/14/18 Spironolactone 12.5 mg PO DAILY 09/14/18 Aspirin E.C. [Ecotrin] 81 mg PO DAILY 11/05/18 Carvedilol [Coreg (Beta Indy)] 12.5 mg PO BID 11/05/18 Ipratropium/Albuterol Sulfate [Duoneb] 3 ml INHALATION 4X/DAY 11/05/18 Acetaminophen [Tylenol] 1,000 mg PO Q6H PRN PRN tab 11/15/18 Folic Acid 1 mg PO DAILY #30 tab 11/15/18 Menthol/Lanolin/Calamine/Znox [Calmoseptine Ointment] 1 applic TOPICAL 0600,2200 tube 11/15/18
--- NOTE | 2018-11-30 14:18 | CASEMGMT ---
FINESSE LALA Discharge Follow-Up Phone Call. Ernestine: 15 Strata: 4 Discharge Date: 11/29/18 Adm Dx: Acute on Chronic Hypercapnic Respiratory Failure, Encephalopathy. Call to pt's daughter/POA, Ameena, to inquire about how pt has been doing since being discharged from the hospital. Ameena states that they are currently @ Dr Ulloa's office for an appt. She states pt has been doing okay but that they just noticed that her portable oxygen tank doesn't seem to be working properly. She states pt gets the oxygen through [employer]. Ameena instructed to notify [employer] about this and she states she is going to call them as soon as she gets off of the phone. Ameena also instructed to inform staff @ Dr Ulloa's office so they can assist as needed as well. Ameena states she has no questions about the discharge instructions, follow-up appts, or medications. She states [facility] nurse was out to see pt today as well. FINESSE LALA thanked pt for choosing [facility]. Korin BROWN RN, CM
== END 2018-11-29 13:55 | disposition home health service (06) | DRG 189 ==
LOC: ED 12:44 → PCU 13:16 → ICU 11-28 07:12 → PCU 11-29 07:05 → ICU 11-29 10:29 → PCU 11-30 07:35
PROVIDERS: Internal Medicine; Internal Medicine Critical Care Medicine; Admitting Provider Hospitalist; Emergency Provider Emergency Medicine; Family Provider Internal Medicine; PCP Internal Medicine; Referring Provider Hospitalist
DX: J96.21 Acute and chronic respiratory failure with hypoxia (principal); G93.41 Metabolic encephalopathy; I50.22 Chronic systolic (congestive) heart failure; E87.2 Acidosis; J96.22 Acute and chronic respiratory failure with hypercapnia; J44.9 Chronic obstructive pulmonary disease, unspecified; I11.0 Hypertensive heart disease with heart failure; I27.20 Pulmonary hypertension, unspecified; G47.33 Obstructive sleep apnea (adult) (pediatric); K21.9 Gastro-esophageal reflux disease without esophagitis; D64.9 Anemia, unspecified; I25.10 Atherosclerotic heart disease of native coronary artery without angina pectoris; F10.10 Alcohol abuse, uncomplicated; G47.00 Insomnia, unspecified; E78.5 Hyperlipidemia, unspecified; Z99.81 Dependence on supplemental oxygen; I25.2 Old myocardial infarction; Z86.73 Personal history of transient ischemic attack (TIA), and cerebral infarction without residual deficits; Z86.718 Personal history of other venous thrombosis and embolism; Z91.19 Patient's noncompliance with other medical treatment and regimen; Z87.891 Personal history of nicotine dependence; Z90.49 Acquired absence of other specified parts of digestive tract; Z79.82 Long term (current) use of aspirin; Z66 Do not resuscitate; V89.2XXD Person injured in unspecified motor-vehicle accident, traffic, subsequent encounter; Y92.410 Unspecified street and highway as the place of occurrence of the external cause
CPT/HCPCS: 36600; 51702; 70450; 71045; 80048; 80053; 80307; 81001; 82803; 83605; 84484; 85025; 93005; 94002; 94003; 94640; 94667; 94668; 97110; 97116; 97161; 97166; 97530; 97802; 99285; J7030; J7120; A4216

== ENCOUNTER → 2018-12-13 11:09 | Outpatient (CLI) | payer MEDICARE, SELFPAY ==
[2018-12-13 10:11] VITALS: BMI 23.6
[2018-12-13 12:38] LABS: ALB/GLOB Ratio 0.9 RATIO (0.9-2.4); AST(SGOT) 20 U/L (15-37); Alanine Aminotransfer ALT/SGPT 21 U/L (13-56); Albumin, Serum 3.5 g/dL (3.2-5.0); Alkaline Phosphatase 76 U/L (45-117); Anion Gap 10 (5-15); BUN 11 mg/dL (7-18); BUN/Creat Ratio 14.4 RATIO (10-20); Chloride 109 mmol/L (98-107); Creatinine, Serum 0.76 mg/dL (0.55-1.02); EST Glomerular Filtration Rate 81 mL/min (>60); Est Glom Filt Rate - Afr Amer 98 mL/min (>60); Glucose 97 mg/dL (74-106); Potassium 4.4 mmol/L (3.5-5.1); Protein, Total 7.5 g/dL (6.4-8.2); Sodium Level 149 mmol/L (136-145)
== END ==
PROVIDERS: Family Provider Internal Medicine; PCP Internal Medicine; Visit Provider Internal Medicine
DX: E87.4 Mixed disorder of acid-base balance (principal)
CPT/HCPCS: 36415; 80053

== ENCOUNTER → 2019-01-24 10:04 | Outpatient (CLI) | payer MEDICARE, SELFPAY ==
[2019-01-24 09:17] VITALS: BMI 23.3
[2019-01-24 11:12] LABS: AST(SGOT) 15 U/L (15-37); Alanine Aminotransfer ALT/SGPT 16 U/L (13-56); Albumin, Serum 3.5 g/dL (3.2-5.0); Alkaline Phosphatase 77 U/L (45-117); Cholesterol 122 mg/dL (200); Globulin 3.6 g/dL (2.2-4.2); High Density Lipoprotein 55 mg/dL; Protein, Total 7.1 g/dL (6.4-8.2); Triglycerides 129 mg/dL; Very Low Density Lipoprotein 26 mg/dL (5-40)
== END ==
PROVIDERS: Family Provider Internal Medicine; PCP Internal Medicine; Referring Provider Internal Medicine Cardiovascular Disease; Visit Provider Internal Medicine Cardiovascular Disease
DX: I50.22 Chronic systolic (congestive) heart failure (principal); E78.5 Hyperlipidemia, unspecified
CPT/HCPCS: 36415; 80061; 80076

== ENCOUNTER → 2019-02-21 13:00 | Outpatient (CLI) | payer MEDICARE, MEDICAID, SELFPAY ==
[2018-10-26 13:24] VITALS: BMI 25.7
== END ==
PROVIDERS: Family Provider Internal Medicine; PCP Internal Medicine; Referring Provider Nurse Practitioner Family; Visit Provider Nurse Practitioner Family
DX: G47.33 Obstructive sleep apnea (adult) (pediatric) (principal)
CPT/HCPCS: 98960; G0463

== ENCOUNTER → 2019-03-21 10:40 | Outpatient (CLI) | payer MEDICARE, SELFPAY ==
[2019-03-21 09:51] VITALS: BMI 24.5
[2019-03-21 12:20] LABS: Absolute Neutrophil Count 4.1 X10^3/uL (2.0-7.7); Basophil# 0.06 X10^3/uL; Basophil% 0.8 % (0-1); Eosinophils% 2.8 % (0-5); Hematocrit 41.2 % (37-47); Hemoglobin 12.7 g/dL (12.0-15.0); Lymphocyte % 30.5 % (19-41); Mean Corp Hgb Conc 30.8 g/dL (32-36); Mean Corpuscular Hgb 28.7 pg (27.0-32.0); Mean Platelet Vol. 10.9 fl (6.2-12.0); Monocyte# 0.65 X10^3/uL; NRBC Flagged by Analyzer 0 % (0-5); Neutrophil # 4.07 X10^3/uL (2.7-7.7); Neutrophil % 56.5 % (47-70); Platelet Count 191 K/mm3 (150-450); RBC Distribution Width SD 44.3 fl (35.1-43.9); Red Blood Count 4.43 M/mm3 (4.2-5.4); White Blood Count 7.2 K/mm3 (4.4-11.0)
== END ==
PROVIDERS: Family Provider Internal Medicine; PCP Internal Medicine; Visit Provider Internal Medicine
DX: J44.9 Chronic obstructive pulmonary disease, unspecified (principal)
CPT/HCPCS: 36415; 85025

== ENCOUNTER → 2019-09-05 10:09 | Outpatient (CLI) | payer MEDICARE, SELFPAY ==
[2019-09-05 09:29] VITALS: BMI 26.2
[2019-09-05 12:07] LABS: Absolute Lymphocyte Count 1.95 X10^3/uL (0.83-4.51); Absolute Neutrophil Count 4.7 X10^3/uL (2.0-7.7); Basophil# 0.04 X10^3/uL; Basophil% 0.5 % (0-1); Eosinophil# 0.42 X10^3/uL; Eosinophils% 5.3 % (0-5); Hematocrit 40.7 % (37-47); Hemoglobin 12.5 g/dL (12.0-15.0); Lymphocyte # 1.95 X10^3/ul (4.0); Lymphocyte % 24.8 % (19-41); Mean Corp Hgb Conc 30.7 g/dL (32-36); Mean Corpuscular Volume 97.6 fL (81-99); Mean Platelet Vol. 10.6 fl (6.2-12.0); Monocyte# 0.72 X10^3/uL; Monocyte% 9.2 % (0-10); NRBC Flagged by Analyzer 0 % (0-5); Neutrophil # 4.68 X10^3/uL (2.7-7.7); Neutrophil % 59.6 % (47-70); Platelet Count 203 K/mm3 (150-450); RBC Distribution Width CV 13.2 % (11.6-14.6); RBC Distribution Width SD 47.7 fl (35.1-43.9); Red Blood Count 4.17 M/mm3 (4.2-5.4); White Blood Count 7.9 K/mm3 (4.4-11.0)
[2019-09-05 12:26] LABS: AST(SGOT) 15 U/L (15-37); Alanine Aminotransfer ALT/SGPT 18 U/L (13-56); Albumin, Serum 3.7 g/dL (3.2-5.0); Alkaline Phosphatase 71 U/L (45-117); Anion Gap 1 (5-15); BUN 19 mg/dL (7-18); BUN/Creat Ratio 25.3 RATIO (10-20); Calcium,Total 9.4 mg/dL (8.5-10.1); Chloride 103 mmol/L (98-107); Creatinine, Serum 0.75 mg/dL (0.55-1.02); EST Glomerular Filtration Rate 82 mL/min (>60); Est Glom Filt Rate - Afr Amer 100 mL/min (>60); Globulin 3.6 g/dL (2.2-4.2); Glucose 96 mg/dL (74-106); Potassium 4.6 mmol/L (3.5-5.1); Protein, Total 7.3 g/dL (6.4-8.2); Sodium Level 143 mmol/L (136-145)
== END ==
PROVIDERS: PCP Internal Medicine; Referring Provider Internal Medicine; Visit Provider Internal Medicine
DX: J44.9 Chronic obstructive pulmonary disease, unspecified (principal); E78.5 Hyperlipidemia, unspecified
CPT/HCPCS: 36415; 80053; 85025

== ENCOUNTER → 2019-09-21 08:23 | Outpatient (CLI) | payer MEDICARE, SELFPAY ==
[2019-09-05 10:19] VITALS: BMI 24.5
[2019-09-21 08:48] VITALS: PULSE 100; PULSE 87; PULSE 95; PULSE 98; O2SAT 89; O2SAT 90; O2SAT 91; O2SAT 92; O2SAT 95; O2SAT 97
--- NOTE | 2019-09-21 08:57 | CPS ---
Mrs. Mayes came in on Nasal O2 at 2 LPM removed and sat for 5 mins dropped to 88 % placed back on the O2 before starting the walk.
--- NOTE | 2019-09-22 05:42 | PCM.PSN.6M ---
PSN 6 Minute Walk Test - 6 Minute Walk Test 6 Minute Walk Test: 6 Minute Walk Test PSN:6-Minute Walk Test Start: 09/21/19 08:48 Freq: Status: Active Protocol: [id number] Document 09/21/19 08:48 FR (Rec: 09/21/19 09:01 FR [id number]) 6 Minute Walk Test Date Performed 09/21/19 Time Performed 08:30 Height 5 ft 3 in Weight: 61.235 kg Weight in Pounds 135.[address]: Rodney/Jonathan FIO2 (% Oxygen) 2 Assistive device used: None Pre-test Oxygen Flow Rate (L/min) (L/min) 2 Oxygen Delivery Method Nasal Cannula Pulse Ox (%) 97 Pulse Rate (60-100 beats/min) 87 1st minute Oxygen Flow Rate (L/min) (L/min) 2 Oxygen Delivery Method Nasal Cannula Pulse Ox (%) 97 Pulse Rate (60-100 beats/min) 95 2nd minute Oxygen Flow Rate (L/min) (L/min) 2 Oxygen Delivery Method Nasal Cannula Pulse Ox (%) 92 Pulse Rate (60-100 beats/min) 98 3rd minute Oxygen Flow Rate (L/min) (L/min) 2 Oxygen Delivery Method Nasal Cannula Pulse Ox (%) 90 Pulse Rate (60-100 beats/min) 98 Number of Rests Taken 1 Reported Symptoms Increased Work of Breathing 4th minute Oxygen Flow Rate (L/min) (L/min) 2 Oxygen Delivery Method Nasal Cannula Pulse Ox (%) 90 Pulse Rate (60-100 beats/min) 98 Reported Symptoms Increased Work of Breathing 5th minute Oxygen Flow Rate (L/min) (L/min) 2 Oxygen Delivery Method Nasal Cannula Pulse Ox (%) 91 Pulse Rate (60-100 beats/min) 98 Reported Symptoms Increased Work of Breathing 6th minute Oxygen Flow Rate (L/min) (L/min) 2 Oxygen Delivery Method Nasal Cannula Pulse Ox (%) 89 Pulse Rate (60-100 beats/min) 100 Dyspnea Aurelia Scale (0-10) 2 Exertion Aurelia Scale (6-20) 8 Reported Symptoms Increased Work of Breathing Post-test Oxygen Flow Rate (L/min) (L/min) 2 Oxygen Delivery Method Nasal Cannula Pulse Ox (%) 95 Pulse Rate (60-100 beats/min) 87 Full Laps Walked 5 Partial Lap, Number of Tiles Walked 42 Total Distance Walked (ft) 337 09/21/19 08:57 Cardiopulmonary Services by Jacey Robertson Mrs. Mayes came in on Nasal O2 at 2 LPM removed and sat for 5 mins dropped to 88 % placed back on the O2 before starting the walk. Initialized on 09/21/19 08:57 - END OF NOTE - Interpretation Interpretation: The patient was noted to be 88% on room air, but improved to 97% on 2 L nasal cannula. The patient experienced significant desaturation with ambulation to as low as 90%, but in total was able to travel 337 feet over the course of 6 minutes with one break and no assistive devices. These findings are consistent with a respiratory limitation exercise tolerance. - Recommendations Recommendations: The patient should be using 2 L nasal cannula at all times.
== END ==
LOC: PSN 08:24
PROVIDERS: PCP Internal Medicine; Referring Provider Nurse Practitioner Acute Care; Visit Provider Nurse Practitioner Acute Care
DX: J44.9 Chronic obstructive pulmonary disease, unspecified (principal)
CPT/HCPCS: 94618

== ENCOUNTER 2019-10-25 08:45 | Inpatient (IN) | payer MEDICARE, SELFPAY ==
[2019-09-05 10:19] VITALS: BMI 24.5
[2019-10-25] VITALS (21 sets, daily range): BP systolic 104–154; BP diastolic 45–99; PULSE 72–98; RESP 18–24; TEMP 36.3–36.8; O2SAT 84–100; BMI 26.2; BMI 25.8; BMI 25.9
--- NOTE | 2019-10-25 08:49 | EKG12_ITS ---
Test Reason : R/O STROKE Blood Pressure : / mmHG Vent. Rate : 083 BPM Atrial Rate : 083 BPM P-R Int : 132 ms QRS Dur : 076 ms QT Int : 368 ms P-R-T Axes : 080 058 060 degrees QTc Int : 432 ms Normal sinus rhythm Normal ECG Confirmed by JAZLYN MENDES, GLORIA ([id number]), editor in chief AJ AYOUB ([id number]) on 10/30/2019 10:52:46 AM Referred By: DANO Confirmed By:ADITI HOBSON MD
--- NOTE | 2019-10-25 08:49 | CT_ITS ---
STUDY: CT BRAIN WITHOUT CONTRAST REASON FOR EXAM: Female, 64 years old. CVA, HX STROKE RADIATION DOSAGE (If Supplied By Facility): CTDIvol = ( 44.99 ) mGy, DLP = ( 745.49 ) mGycm TECHNIQUE: Transaxial CT imaging of the brain was performed without administration of intravenous contrast material. Individualized dose optimization techniques were used for this CT. COMPARISON: Comparison is made with prior study dated November 26, 2018. FINDINGS: Normal soft tissue structures. Normal calvarium. There is mild cerebral atrophy with widening of the extra-axial spaces and ventricular dilatation. Once again, there is evidence of encephalomalacia in the posterior right parietal occipital lobe as well as in the left posterior parietal lobe in keeping with prior ischemic insult. Normal basal ganglia and thalami. Normal brainstem. Normal cerebellum. There is no intracranial hemorrhage. There are no findings of an acute ischemic infarction. Atherosclerotic calcification of the cavernous portions of the internal carotid arteries bilaterally. Normal visualized paranasal sinuses. CT/Brain/Head without Contrast IMPRESSION: Chronic involutional changes of the brain. No acute abnormality is seen. N.B. : The above information has been verbally conveyed by Vinny Mcghee to Neptali Garcia on 10/25/2019 09:10:10 (ET). Electronically Signed: Vinny Mcghee, at 9:11 EDT , Service support ,
--- NOTE | 2019-10-25 08:51 | CT_ITS ---
STUDY: CTA HEAD AND NECK WITH CONTRAST REASON FOR EXAM: Female, 64 years old. CVA RADIATION DOSAGE (If Supplied By Facility): CTDIvol = ( 19.34 ) mGy, DLP = ( 637.43 ) mGycm TECHNIQUE: CT angiography was performed with a multi-detector CT scanner. Data acquisition was obtained from the skull base through the vertex following intravenous administration of 100CC ISOVUE 370. MIP images were reconstructed from the axial data set. Post-processing of the angiographic images was performed, with multiplanar reformation and 3D reconstruction. Individualized dose optimization techniques were used for this CT. COMPARISON: No relevant priors. FINDINGS: Normal bilateral petrous carotid arteries. There is calcified plaque formation of the right cavernous carotid artery, without a cross-sectional luminal stenosis. There is calcified plaque formation of the left cavernous carotid artery, without a cross-sectional luminal stenosis. Normal right A1 segments of the anterior cerebral artery. Normal left A1 segments of the anterior cerebral artery. Normal intact anterior communicating artery (ACOM). Normal bilateral A2 segments of the anterior cerebral arteries. Normal right M1 and M2 segments of the middle cerebral arteries, with a normal M1 bifurcation. Normal left M1 and M2 segments of the middle cerebral arteries, with a normal M1 bifurcation. Normal right posterior communicating artery (PCOM). Normal left posterior communicating artery (PCOM). Normal bilateral vertebral arteries. Normal basilar artery with a normal basilar bifurcation. The visualized bilateral superior cerebellar (SCA) arteries are normal. Normal bilateral P1, P2 and visualized P3 segments of the posterior cerebral arteries. There is no demonstrated aneurysm of the [place]. There is no demonstrated abnormality of the visualized brain. AORTIC ARCH: Normal visualized aortic arch. Normal origins of the brachiocephalic, left common carotid, and left subclavian arteries. RIGHT CAROTID ARTERIES: Normal right common carotid artery (CCA). Normal right common carotid bulb. There is mild atherosclerotic plaque formation of the origin of the right internal carotid artery with less than 50% cross sectional diameter stenosis. Normal visualized cervical portion of the right internal carotid artery. Normal origin of the right external carotid artery (ECA). LEFT CAROTID ARTERIES: Normal left common carotid artery (CCA). Normal left common carotid bulb. There is mild atherosclerotic plaque formation of the origin of the left internal carotid artery with less than 50% cross sectional diameter stenosis. Normal visualized cervical portion of the left internal carotid artery. Normal origin of the left external carotid artery (ECA). VERTEBRAL ARTERIES: Normal bilateral vertebral arteries. CT/CTA Head AND Neck W/ Contrast IMPRESSION: Calcific plaque at the origin of the right and left internal carotid arteries causing less than 50% narrowing. N.B. : The above information has been verbally conveyed by Vinny Mcghee to Neptali Garcia on 10/25/2019 09:14:24 (ET). Electronically Signed: Vinny Mcghee, at 9:15 EDT , Service support ,
--- NOTE | 2019-10-25 08:52 | ED.DCSUM_ITS ---
History of Present Illness Chief Complaint: Neuro S/Sx Narrative: This patient is a 64-year-old female who presents with a possible stroke. She was brought in by family. At about 8:00 last night she developed multiple symptoms including shortness of breath, dizziness, numbness and weakness on the right side. She had difficulty getting out of the vehicle on arrival here. I was immediately called to the room. Patient reports a history of prior heart attack and stroke during a critical illness in which she was intubated in [place] last fall. She is unable to provide further details on this however it sounds like these were diagnosed during a critical illness. She does not believe she ever had a cardiac cath or stents. She is not anticoagulated. 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 Although details of the history not provided previous medical records note a history of hemorrhagic stroke. I asked the patient about this and she is not sure if she had any bleeding or not she states no one ever told me anything. Past Medical History - Allergies and Home Meds Allergies/Adverse Reactions: Allergies tetanus and diphtheria toxoids [tetanus & diphtheria toxoids] Allergy (Verified 09/05/19 09:26) [facility] Primary Care Physician: Glenn Ulloa MD [Primary Care Provider] - Past Medical History: - - Hypertension, hyperlipidemia, asthma, COPD, prior [place] and stroke Surgical History: appendectomy, cholecystectomy, - - , Lumpectomy Smoking Status: Former smoker - Family History Maternal Family History: Family History (Last Reviewed 09/05/19 @ 09:28 by Ning Phillips) Sister Cancer Father Cancer Mother Cancer Family History: Reports: Cancer - Lung Paternal Family History: Family History (Last Reviewed 09/05/19 @ 09:28 by Ning Phillips) Sister Cancer Father Cancer Mother Cancer Family History: Reports: Cancer - Lung Sibling Family History: Family History (Last Reviewed 09/05/19 @ 09:28 by Ning Phillips) Sister Cancer Father Cancer Mother Cancer Family History: Reports: Cancer - lung Review of Systems All systems negative except as indicated General: Denies: Fever Eyes: Denies: Visual changes - bilaterally ENT: Denies: Bilateral ear pain Cardiovascular: Denies: Chest pain Respiratory: Reports: Dyspnea. Denies: Cough Gastrointestinal: Denies: Abdominal pain, Nausea, Vomiting Musculoskeletal: Denies: Myalgias, Arthralgias Skin: Denies: Rash Neurological: Reports: Weakness, Parasthesia, Numbness Psych: Reports: Anxiety Hematologic: Denies: Easy bruising Physical Exam Inital Vital Signs reviewed: Yes General: Well nourished, Well developed Head: Normocephalic Eyes: EOMI ENT: Moist mucous membranes Neck: Supple Cardiovascular: Regular rate, Regular rhythm Respiratory: Decreased Air Movement Abdomen: Soft, Nontender Extremities: Nontender Skin: Normal color Neurological: Alert, - - NIH stroke scale is 4, patient has decreased sensation to light touch in the right leg, weakness with drift of the right upper and lower extremities, she is unable to tell me the month Psychological: Normal affect Diagnostic/Tx/Re-eval Impressions Brain CT 10/25/19 08:49 IMPRESSION: Chronic involutional changes of the brain. No acute abnormality is seen. N.B. : The above information has been verbally conveyed by Vinny Mcghee to Neptali Garcia on 10/25/2019 09:10:10 (ET). Electronically Signed: Vinny Mcghee, at 9:11 EDT , Service support , ADDENDUM: 10/25/19 0918 IMPRESSION: Chronic involutional changes of the brain. No acute abnormality is seen. N.B. : The above information has been verbally conveyed by Vinny Mcghee to Neptali Garcia on 10/25/2019 09:10:10 (ET). Electronically Signed: Vinny Mcghee, at 9:11 EDT , Service support , Head/Neck CTA 10/25/19 08:51 IMPRESSION: Calcific plaque at the origin of the right and left internal carotid arteries causing less than 50% narrowing. N.B. : The above information has been verbally conveyed by Vinny Mcghee to Neptali Colonon on 10/25/2019 09:14:24 (ET). Electronically Signed: Vinny Mcghee, at 9:15 EDT , Service support , ADDENDUM: 10/25/19921 IMPRESSION: Calcific plaque at the origin of the right and left internal carotid arteries causing less than 50% narrowing. N.B. : The above information has been verbally conveyed by Vinny Taz to Neptali Garcia on 10/25/2019 09:14:24 (ET). Electronically Signed: Vinny Mcghee, at 9:15 EDT , Service support , 10/25/19 08:49 Brain/Head without Contrast [CT] Stat 10/25/19 08:51 CTA Head AND Neck W/ Contrast [CT] Stat 10/25/19 09:25 Chest 1 View [RAD] Stat Laboratory Results 10/25/19 10/25/19 10/25/19 08:45 08:45 08:45 WBC 8.2 RBC 4.59 Hgb 13.5 Hct 43.2 MCV 94.1 MCH 29.4 MCHC 31.3 L RDW Std Deviation 43.7 RDW Coeff of [place] 12.8 Plt Count 169 MPV 10.2 Immature Gran % (Auto) 0.200 Neut % (Auto) 61.4 Lymph % (Auto) 24.2 [place] % (Auto) 9.9 Eos % (Auto) 3.7 Baso % (Auto) 0.6 Absolute Neuts (auto) 5.0 Absolute Lymphs (auto) 1.98 Nucleated RBC % 0 PT 12.6 INR 1.0 APTT 28.1 Sodium 140 Potassium 4.3 Chloride 99 Carbon Dioxide 38.0 H Anion Gap 3 L BUN 14 Creatinine 0.75 Estim Creat Clear Calc 61.86 Est GFR (MDRD) Af Amer 99 Est GFR (MDRD) Non-Af 82 BUN/Creatinine Ratio 18.6 Glucose 100 Calcium 9.6 Troponin I < 0.015 - Medical Decision Making Patient is not a TPA candidate due to the timing of onset of symptoms. CT angiograms show no large vessel occlusion. I did speak to stroke neurology at [facility] who therefore felt the patient could be admitted here for standard evaluation as she is not a candidate for any intervention at this time. EKG shows normal sinus rhythm at a rate of 83. Laboratory studies are unremarkable. CT of the head showed no acute process but did show findings consistent with prior stroke. CT angiograms did show less than 50% stenosis at the origins of the bilateral internal carotid arteries. Patient was hypoxic at about 88% on room air on initial presentation and was placed on 2 L nasal cannula however on further history she is on 2 L nasal cannula at home at baseline. On her usual 2 L she is 98 to 100%. Her chest x-ray on my review shows chronic changes, formal radiology read pending at the time of this dictation. Patient will be discussed with the hospitalist and admitted for further evaluation. ED Disposition - Plan for ED Patient: Disposition: Acute Care Hospital [facility] Diagnosis: Stroke Referrals: Glenn Ulloa MD [Primary Care Provider] -
[2019-10-25 08:56] LABS: Absolute Lymphocyte Count 1.98 X10^3/uL (0.83-4.51); Basophil# 0.05 X10^3/uL; Basophil% 0.6 % (0-1); Eosinophils% 3.7 % (0-5); Hematocrit 43.2 % (37-47); Hemoglobin 13.5 g/dL (12.0-15.0); Lymphocyte # 1.98 X10^3/ul (4.0); Lymphocyte % 24.2 % (19-41); Mean Corp Hgb Conc 31.3 g/dL (32-36); Mean Corpuscular Hgb 29.4 pg (27.0-32.0); Mean Corpuscular Volume 94.1 fL (81-99); Mean Platelet Vol. 10.2 fl (6.2-12.0); Monocyte# 0.81 X10^3/uL; Monocyte% 9.9 % (0-10); NRBC Flagged by Analyzer 0 % (0-5); Neutrophil # 5.02 X10^3/uL (2.7-7.7); Neutrophil % 61.4 % (47-70); Platelet Count 169 K/mm3 (150-450); RBC Distribution Width CV 12.8 % (11.6-14.6); RBC Distribution Width SD 43.7 fl (35.1-43.9); Red Blood Count 4.59 M/mm3 (4.2-5.4); White Blood Count 8.2 K/mm3 (4.4-11.0)
[2019-10-25 09:03] LABS: Partial Thromboplast Time 28.1 Seconds (24.1-36.2); Prothrombin Time (Protime)PT. 12.6 SECONDS (11.7-14.9)
[2019-10-25 09:09] LABS: Anion Gap 3 (5-15); BUN 14 mg/dL (7-18); BUN/Creat Ratio 18.6 RATIO (10-20); Calcium,Total 9.6 mg/dL (8.5-10.1); Chloride 99 mmol/L (98-107); Creatinine, Serum 0.75 mg/dL (0.55-1.02); EST Glomerular Filtration Rate 82 mL/min (>60); Est Glom Filt Rate - Afr Amer 99 mL/min (>60); Estimated Creatinine Clearance 61.86 ml/min; Glucose 100 mg/dL (74-106); Potassium 4.3 mmol/L (3.5-5.1); Sodium Level 140 mmol/L (136-145)
--- NOTE | 2019-10-25 09:25 | RAD_ITS ---
STUDY: X-RAY CHEST REASON FOR EXAM: Female, 64 years old. dyspnea, neuro symptoms TECHNIQUE: Single AP portable view of the chest. COMPARISON: Comparison is made with prior study dated November 26, 2018. FINDINGS: EKG electrodes are seen. Hyperinflation. Scattered calcified granulomas. There is no demonstrated pleural abnormality. Normal size heart. Normal mediastinum and jacinto. Normal visualized pulmonary arteries. Normal visualized aortic arch and descending thoracic aorta. Normal visualized thoracic spine. Normal visualized ribs, clavicles, and shoulders. There is no demonstrated abnormality of the visualized soft tissue structures of the upper abdomen. RAD/Chest 1 View IMPRESSION: Hyperinflation. The lungs are clear. Electronically Signed: Vinny Mcghee, at 9:50 EDT , Service support ,
--- NOTE | 2019-10-25 10:36 | MRI_ITS ---
STUDY: MRI BRAIN WITHOUT CONTRAST REASON FOR EXAM: Female, 64 years old. cva altered mental status. TECHNIQUE: Standardized multiplanar fat and water weighted pulse sequences were obtained. COMPARISON: Head CT dated October 25, 2019 FINDINGS: Moderate areas of volume loss in the right occipital and superior parietal lobes and in the superior aspect of the left parietal lobe reidentified and compatible with sequela of old infarcts. Gliotic signal is present in these regions. There is mild cerebral atrophy with widening of the extra-axial spaces and ventricular dilatation. There are a limited number of small white matter hyperintensities, distributed throughout the deep white matter tracts of the cerebral hemispheres, consistent with mild chronic white matter ischemic changes. There is no evidence for recent intracranial ischemia or other cause of cytotoxic edema on diffusion weighted imaging (DWI). Normal T2* images of the brain without demonstrated susceptibility artifact. There is no demonstrated hemosiderin stain. Normal bilateral basal ganglia. Normal thalami. There is no extra-axial fluid accumulation. There is preservation of the major cerebral artery flow voids. Normal sella turcica, pituitary gland, infundibular stalk, optic chiasm and hypothalamus. Normal tectal plate and pineal gland. Normal midbrain, tamia and medulla. Normal cerebellum. Normal basal cisterns. Normal bilateral temporal bones. Normal bilateral internal auditory canals. No demonstrated orbital abnormality, within the constraints of a routine brain study. Normal visualized paranasal sinuses. Normal calvarium and skull base. Normal visualized soft tissue structures. MRI/Brain without Contrast IMPRESSION: 1. Moderate areas of volume loss in the right occipital and superior parietal lobes and in the superior aspect of the left parietal lobe reidentified and compatible with sequela of old infarcts. 2. No demonstrated acute infarction or other process. Electronically Signed: Scooby Mckenzie MD at 14:21 EDT , Service support ,
--- NOTE | 2019-10-25 10:36 | ECHOD_ITS ---
Reason For Study: TIA Procedure This was a 2D Doppler, Color Flow transthoracic echocardiogram. Technically difficult - pt is very confused and unsettled. MRI negative for recent stroke. Exam performed portable in patient room. Left Ventricle Mildly dilated left ventricle. The estimated ejection fraction is 45 %. Stage 1 diastolic dysfunction. There is mild to moderate global hypokinesis of the left ventricle. Right Ventricle Normal size and thickness. Normal systolic function. Atria Normal left atrium. Normal right atrium. Normal atrial septum. Mitral Valve The mitral valve is structurally normal. No prolapse or stenosis seen. Tricuspid Valve Normal tricuspid valve. Trivial tricuspid valve insufficiency. Right ventricular systolic pressure estimated to be 21 mmHg. Aortic Valve Normal aortic valve. Trisinus/trileaflet aortic valve. Pulmonic Valve Normal pulmonic valve. Great Vessels Normal aortic root. Normal arch. Normal inferior vena cava. Inferior vena cava collapse with sniff. Pericardium/Pleural No pericardial effusion. MMode/2D Measurements & Calculations LVIDd: 4.8 cm IVSd: 0.84 cm LAV(MOD-bp): 40.8 ml LVIDs: 3.9 cm LVPWd: 0.83 cm LAV(MOD-bp) Indexed: 24.0 ml/m2 RVDd: 2.8 cm FS: 18.9 % LAV(MOD-sp2): 42.2 ml LAV(MOD-sp4): 36.8 ml SV(MOD-sp4): 37.6 ml SV(sp4-el): 40.2 ml LVAd ap4: 29.2 cm2 EDV(MOD-sp4): 91.7 ml EDV(sp4-el): 95.5 ml LVAs ap4: 20.9 cm2 ESV(MOD-sp4): 54.2 ml ESV(sp4-el): 55.3 ml EF(MOD-sp4): 40.9 % EF(sp4-el): 42.1 % LA A4 area: 15.1 cm2 RA A4 area: 10.4 cm2 Time Measurements MV dec time: 0.17 sec Doppler Measurements & Calculations MV E max james: 69.9 cm/sec Lat Peak E' James: 8.8 cm/sec Med Peak E' James: 6.1 cm/sec MV A max james: 102.7 cm/sec E/E' lat: 8.0 E/E' med: 11.5 MV E/A: 0.68 Ao V2 max: 131.8 cm/sec LV V1 max: 97.5 cm/sec TR max james: 197.5 cm/sec Ao max P.0 mmHg LV V1 max P.8 mmHg TR max P.6 mmHg Interpretation Summary Mildly dilated left ventricle. The estimated ejection fraction is 45 %. Stage 1 diastolic dysfunction. There is mild to moderate global hypokinesis of the left ventricle. Trivial tricuspid valve insufficiency. Right ventricular systolic pressure estimated to be 21 mmHg. Compared to echo report dated 09/15/2018, no appreciable changes noted. Ordering Physician: Guero Tuttle Referring Physician: Glenn Ulloa Performed By: Jeannette Gracia, JENNIE, RVT
--- NOTE | 2019-10-25 11:00 | HP.PCM_ITS ---
Problem List (1) Stroke Status: Acute (2) Non-rheumatic mitral regurgitation Status: Chronic (3) Anxiety and depression Status: Chronic (4) Chronic systolic (congestive) heart failure Status: Chronic (5) Non-ischemic cardiomyopathy Status: Chronic (6) Essential (primary) hypertension Status: Chronic (7) Hyperlipidemia Status: Chronic Qualifiers: Hyperlipidemia type: unspecified Qualified Code(s): E78.5 - Hyperlipidemia, unspecified (8) COPD (chronic obstructive pulmonary disease) Status: Chronic Qualifiers: COPD type: unspecified COPD Qualified Code(s): J44.9 - Chronic obstructive pulmonary disease, unspecified (9) Insomnia Status: Chronic History of Present Illness Date of Admission: 10/25/19 Chief Complaint: Suspected stroke The patient is a 64 year old F with multiple comorbidities who was brought to the ED by the family on suspicion of patient having expressive stroke. Patient was last known to be in her usual state of health around 8 PM. Patient was found by the family on the morning of her presentation with some confusion as well as subjective right-sided weakness. Was brought to the emergency department. An assessment of suspected CVA was made. Patient was however deemed to be outside the window of TPA. Initial head CT and CTA of the head and neck came back unremarkable admitted to a monitored bed for further management. Cannot provide any reliable history in view of her presentation. Past Medical History Past Medical History (Chronic Problems): Chronic Problems (Last Reviewed 10/25/19 @ 12:[address] Guero Tuttle MD) Non-rheumatic mitral regurgitation (Chronic) Anxiety and depression (Chronic) Chronic systolic (congestive) heart failure (Chronic) Non-ischemic cardiomyopathy (Chronic) Essential (primary) hypertension (Chronic) Hyperlipidemia (Chronic) COPD (chronic obstructive pulmonary disease) (Chronic) Insomnia (Chronic) Medical History: Medical History (Last Reviewed 10/25/19 @ 12:[address] 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 Alcohol abuse F10.10 Anxiety F41.9 CO2 narcosis R06.89 Chronic anemia D64.9 Daytime hypersomnia G47.19 GERD (gastroesophageal reflux disease) K21.9 Hemorrhagic cerebrovascular accident (CVA) I61.9 Hypotension arterial I95.9 Insomnia G47.00 TIO (obstructive sleep apnea) G47.33 History of DVT of lower extremity Onset Date: 02/11/17 Z86.718 Rt lower extremity pinky vein Secondary pulmonary arterial hypertension I27.21 Allergies tetanus and diphtheria toxoids [tetanus & diphtheria toxoids] Allergy (Verified 09/05/19 09:26) Hives Home Medications: Ambulatory Orders Medication Instructions Recorded Multivitamin with Minerals 1 tab PO DAILY 09/14/18 [Multiple Vitamin] Ipratropium/Albuterol Sulfate 3 ml INHALATION 4X/DAY 11/05/18 [Duoneb] Acetaminophen [Tylenol] 1,000 mg PO Q6H PRN PRN tab 11/15/18 budesonide-formoterol HFA 160 2 puff INHALATION BID #1 ea 01/02/19 mcg-4.5 mcg/actuation aerosol inhaler folic acid 1 mg tablet 1 mg PO DAILY #30 tab 03/16/19 aspirin 81 mg tablet,delayed 81 mg PO DAILY #90 tab 04/03/19 release pantoprazole 40 mg tablet,delayed 40 mg PO QAM #90 tab 04/03/19 release spironolactone 25 mg tablet 12.5 mg PO DAILY #90 tab 04/03/19 albuterol sulfate 90 mcg/actuation 1 puff INHALATION Q4H PRN PRN #1 06/06/19 aerosol inhaler inhaler duloxetine 60 mg capsule,delayed 60 mg PO QPM #90 cap 06/06/19 release carvedilol 12.5 mg tablet 12.5 mg PO BID #180 tab 06/24/19 buspirone 5 mg tablet 5 mg PO TID #90 tab 07/14/19 mirtazapine 15 mg tablet See Rx Instructions .ROUTE 08/16/19 .COMPLEX #30 tab atorvastatin 20 mg tablet 20 mg PO QHS #90 tab 09/25/19 Surgical History: Surgical History (Last Reviewed 10/25/19 @ 12:[address] Guero Tuttle MD) History of bilateral cataract extraction Z98.41, Z98.42 2019 H/O: section Z98.891 History of cholecystectomy Z90.49 History of lumpectomy Z98.890 Hx of appendectomy Z90.49 Surgical History: appendectomy, cholecystectomy, - - , Lumpectomy Psychiatric History: Anxiety NURSE PLASTICS History: No pertinent NURSE PLASTICS history Smoking Status: Former smoker - *Family History Maternal Family History: Family History (Last Reviewed 10/25/19 @ 12:[address] Guero Tuttle MD) Sister Cancer Father Cancer Mother Cancer History Items: Cancer - Lung Paternal Family History: Family History (Last Reviewed 10/25/19 @ 12:[address] Guero Tuttle MD) Sister Cancer Father Cancer Mother Cancer History Items: Cancer - Lung Sibling Family History: Family History (Last Reviewed 10/25/19 @ 12:[address] Guero Tuttle MD) Sister Cancer Father Cancer Mother Cancer History Items: Cancer - lung Review of Systems Unable to obtain accurate/complete ROS d/t: Reliable patient has expressive aphasia VTE Information - Inpt Only VTE Present on Admission: No VTE Mechan Device Prophylaxis: None VTE Pharm Prophylaxis ordered?: Yes Patient Problems: Active and Suspected Problems (Last Reviewed 10/25/19 @ 12:[address] Guero Tuttle MD) Stroke (Acute) Objective: GENERAL: cooperative HEENT: Atraumatic; EYES; Anicteric, Normal Conjunctiva NECK; supple, normal thyroid, RESPIRATORY: Diminished to auscultation CARDIOVASCULAR: Regular S1 S2, GI: soft, normoactive bowel sounds, : No Renal angle tenderness; EXTREMITIES: No edema, no clubbing, MUSCULOSKELETAL: no muscle waisting NEURO: Awake; current 4/5 in both upper and lower right extremities SKIN: No Rash PSYCH; Flat affect - Physical Exam Vitals/I&O's: Vital Signs Temp Pulse Resp BP Pulse Ox 97.8 F 77 18 116/45 L 96 10/25/19 10:49 10/25/19 10:49 10/25/19 10:49 10/25/19 10:49 10/25/19 10:49 Oxygen Flow Rate (L/min) 1 Oxygen Delivery Method Nasal Cannula Weight: 66.2 kg Body Mass Index (BMI) 25.8 Finger Stick Blood Glucose 94 Laboratory Results 10/25/19 08:45: WBC 8.2, RBC 4.59, Hgb 13.5, Hct 43.2, MCV 94.1, MCH 29.4, MCHC 31.3 L, RDW Std Deviation 43.7, RDW Coeff of Deonte 12.8, Plt Count 169, MPV 10.2, Immature Gran % (Auto) 0.200, Neut % (Auto) 61.4, Lymph % (Auto) 24.2, Dawes % (Auto) 9.9, Eos % (Auto) 3.7, Baso % (Auto) 0.6, Absolute Neuts (auto) 5.0, Absolute Lymphs (auto) 1.98, Nucleated RBC % 0 10/25/19 08:45: PT 12.6, INR 1.0, APTT 28.1 10/25/19 08:45: Sodium 140, Potassium 4.3, Chloride 99, Carbon Dioxide 38.0 H, Anion Gap 3 L, BUN 14, Creatinine 0.75, Estim Creat Clear Calc 61.86, Est GFR (MDRD) Af Amer 99, Est GFR (MDRD) Non-Af 82, BUN/Creatinine Ratio 18.6, Glucose 100, Calcium 9.6, Troponin I < 0.015 Current Medications Acetaminophen (Tylenol) 650 mg PO Q6H PRN PRN PRN Reason: Pain Score 1-10/Temp > 100.7 F Al Hydroxide/Mg Hydroxide (Mylanta Ii) 30 ml PO Q6H PRN PRN PRN Reason: Gastric Burning Albuterol Sulfate (Ventolin Aerosols) 2.5 mg INHALATION Q2H PRN PRN PRN Reason: SOB/Wheezing Aspirin (Aspirin, Baby) 81 mg PO DAILY@0800 [facility] Atorvastatin Calcium (Lipitor) 80 mg PO QHS [facility] Clopidogrel Bisulfate (Plavix) 75 mg PO DAILY [facility] Enoxaparin Sodium (Lovenox) 40 mg SC DAILY [facility] Hydralazine HCl (Apresoline Iv) 5 mg IV Q30M PRN PRN Reason: to maintain BP goals Sodium Chloride () 250 mls @ 15 mls/hr IV .[id number] PRN PRN Reason: Saline Flush Sodium Chloride () 250 mls @ 15 mls/hr IV .[id number] PRN PRN Reason: Additional IVPB Infusion Labetalol HCl (Trandate) 10 - 20 mg IV Q10M PRN PRN PRN Reason: to maintain BP goals Magnesium Hydroxide (Milk Of Magnesia) 30 ml PO DAILY PRN PRN PRN Reason: Constipation Melatonin (Melatonin) 3 mg PO QHS PRN PRN PRN Reason: INSOMNIA Nitroglycerin (Nitrostat) 0.4 mg SUBLINGUAL Q5M PRN PRN Reason: CARDIAC/CHEST PAIN Ondansetron HCl (Zofran) 4 mg IV Q8H PRN PRN PRN Reason: NAUSEA/VOMITING Sodium Chloride () 10 - 40 ml IV UD PRN PRN Reason: SALINE FLUSH Assessment/Plan All Active Problems (Last Reviewed 10/25/19 @ 12:[address] Guero Tuttle MD) Stroke (Acute) History of non-ST elevation myocardial infarction (NSTEMI) (Resolved 02/03/17) Sinusitis (Resolved) And is a 64-year-old lady presented with right-sided weakness, with associated confusion as well as expressive aphasia 1. Suspected CVA ?Patient admitted to monitored bed placed on every [address] and CTA were unremarkable. Suspicion however remains high given patient risk factors. Ordered MRI of the brain with consultation planned for neurology if MRI comes back positive. Patient was started on dual antiplatelet therapy with aspirin and Plavix as well as high-dose statins 2. Hypertension ~ blood pressure controlled, home medications continued with dose adjustment as needed 3. COPD currently not in exacerbation ?Aerosol treatment as needed 4. Dyslipidemia ~patient is on statin therapy, continued at home dose 5. DVT prophylaxis ?[facility] Inpatient E&M: 35511 Init Hosp L3
[2019-10-25] MEDS: LORazepam 2 MG/ML Syringe 1 MG IV (11:47)
[2019-10-25 13:40] LABS: Bedside Glucose 94 mg/dL (70-110)
[2019-10-25] MEDS: busPIRone 5 MG Tablet PO (14:24)
[2019-10-25] MEDS: Budesonide Respules 0.5 MG/2 ML AMPUL.NEB. INHALATION (19:23)
[2019-10-25] MEDS: Ipratropium/Albuterol Sulfate 3 ML AMPUL.NEB INHALATION (19:23)
[2019-10-25] MEDS: Carvedilol 12.5 MG Tablet PO (21:04)
[2019-10-25] MEDS: Atorvastatin Calcium 80 MG Tablet PO (21:04)
[2019-10-25] MEDS: MELATONIN 3 MG TABLET PO (21:04)
[2019-10-25] MEDS: DULoxetine Hcl 60 MG Capsule PO (21:04)
[2019-10-25] MEDS: Acetaminophen 325 MG Tablet 650 MG PO (21:04)
[2019-10-26 01:41] VITALS: BMI 25.8
[2019-10-26 02:00] VITALS: BP 90/61; PULSE 61; RESP 20; TEMP 36.8
[2019-10-26 03:00] VITALS: PULSE 72
[2019-10-26 05:49] VITALS: BP 93/61; PULSE 81; RESP 14; TEMP 36.6; O2SAT 99
[2019-10-26 06:08] LABS: Absolute Lymphocyte Count 1.45 X10^3/uL (0.83-4.51); Basophil# 0.04 X10^3/uL; Basophil% 0.6 % (0-1); Eosinophil# 0.19 X10^3/uL; Hematocrit 41.5 % (37-47); Hemoglobin 12.7 g/dL (12.0-15.0); Lymphocyte # 1.45 X10^3/ul (4.0); Lymphocyte % 22.6 % (19-41); Mean Corp Hgb Conc 30.6 g/dL (32-36); Mean Corpuscular Volume 94.7 fL (81-99); Mean Platelet Vol. 10.2 fl (6.2-12.0); Monocyte# 0.73 X10^3/uL; Monocyte% 11.4 % (0-10); NRBC Flagged by Analyzer 0 % (0-5); Neutrophil % 62.1 % (47-70); Platelet Count 148 K/mm3 (150-450); RBC Distribution Width CV 12.7 % (11.6-14.6); RBC Distribution Width SD 44.6 fl (35.1-43.9); Red Blood Count 4.38 M/mm3 (4.2-5.4); White Blood Count 6.4 K/mm3 (4.4-11.0)
[2019-10-26 06:46] VITALS: PULSE 72
[2019-10-26 07:01] VITALS: PULSE 77; RESP 16; O2SAT 98
[2019-10-26] MEDS: Budesonide Respules 0.5 MG/2 ML AMPUL.NEB. INHALATION (07:01)
[2019-10-26] MEDS: Ipratropium/Albuterol Sulfate 3 ML AMPUL.NEB INHALATION (07:01)
[2019-10-26 07:08] LABS: AST(SGOT) 17 U/L (15-37); Alanine Aminotransfer ALT/SGPT 14 U/L (13-56); Albumin, Serum 3.3 g/dL (3.2-5.0); Alkaline Phosphatase 59 U/L (45-117); Anion Gap 3 (5-15); BUN 17 mg/dL (7-18); BUN/Creat Ratio 21.4 RATIO (10-20); Calcium,Total 9.2 mg/dL (8.5-10.1); Chloride 101 mmol/L (98-107); Cholesterol 133 mg/dL (200); EST Glomerular Filtration Rate 77 mL/min (>60); Est Glom Filt Rate - Afr Amer 93 mL/min (>60); Estimated Creatinine Clearance 57.99 ml/min; Globulin 3.4 g/dL (2.2-4.2); Glucose 94 mg/dL (74-106); High Density Lipoprotein 57 mg/dL; Potassium 3.9 mmol/L (3.5-5.1); Protein, Total 6.7 g/dL (6.4-8.2); Sodium Level 140 mmol/L (136-145); Thyroid Stim Hormone (TSH) 2.05 uIU/mL (0.358-3.74); Triglycerides 90 mg/dL; Very Low Density Lipoprotein 18 mg/dL (5-40)
--- NOTE | 2019-10-26 07:40 | DCINST_ITS ---
- Discharge Diagnoses Current Active Problems: Current Active and Chronic Problems (Last Reviewed 10/25/19 @ 12:[address] Guero Tuttle MD) Stroke (Acute) You will use the following diet at home:: Regular Discharge Activity: Return to Normal Activity Allergies/Adverse Reactions: Allergies tetanus and diphtheria toxoids [tetanus & diphtheria toxoids] Allergy (Verified 09/05/19 09:26) Hives Medications to take at Discharge Multivitamin with Minerals [Multiple Vitamin] 1 tab PO DAILY 09/14/18 Ipratropium/Albuterol Sulfate [Duoneb] 3 ml INHALATION 4X/DAY 11/05/18 Acetaminophen [Tylenol] 1,000 mg PO Q6H PRN PRN tab 11/15/18 budesonide-formoterol HFA 160 mcg-4.5 mcg/actuation aerosol inhaler 2 puff INHALATION BID #1 ea 01/02/19 folic acid 1 mg tablet 1 mg PO DAILY #30 tab 03/16/19 aspirin 81 mg tablet,delayed release 81 mg PO DAILY #90 tab 04/03/19 pantoprazole 40 mg tablet,delayed release 40 mg PO QAM #90 tab 04/03/19 spironolactone 25 mg tablet 12.5 mg PO DAILY #90 tab 04/03/19 albuterol sulfate 90 mcg/actuation aerosol inhaler 1 puff INHALATION Q4H PRN PRN #1 inhaler 06/06/19 duloxetine 60 mg capsule,delayed release 60 mg PO QPM #90 cap 06/06/19 carvedilol 12.5 mg tablet 12.5 mg PO BID #180 tab 06/24/19 buspirone 5 mg tablet 5 mg PO TID #90 tab 07/14/19 mirtazapine 15 mg tablet See Rx Instructions .ROUTE .COMPLEX #30 tab 08/16/19 atorvastatin 20 mg tablet 20 mg PO QHS #90 tab 09/25/19 Melatonin 3 mg PO QHS PRN PRN #60 tab 10/26/19 The following prescriptions were given: Melatonin 3 mg PO QHS PRN PRN #60 tab PRN Reason: Insomnia Transmission Status: Pending to [facility] #30 Primary Care Physician: Glenn Ulloa MD [Primary Care Provider] - Please follow up with your Primary Care Physician in: CALL FOR FOLLOW UP APPOINTMENT Test Results: Test results from this visit will be discussed in further detail at your follow- up appointment, if applicable. Proposed Discharge Date: 10/26/19
--- NOTE | 2019-10-26 07:46 | DS.PCM_ITS ---
Discharge Date and Diagnosis Date of Admission: 10/25/19 Date of Discharge: 10/26/19 - Primary Discharge Diagnosis Suspected TIA - Secondary Discharge Diagnosis Chronic Problems (Last Reviewed 10/25/19 @ 12:[address] Guero Tuttle MD) Non-rheumatic mitral regurgitation (Chronic) Anxiety and depression (Chronic) Chronic systolic (congestive) heart failure (Chronic) Non-ischemic cardiomyopathy (Chronic) Essential (primary) hypertension (Chronic) Hyperlipidemia (Chronic) COPD (chronic obstructive pulmonary disease) (Chronic) Insomnia (Chronic) Hospital Course and Treatment Operations: None Summary of Care Provided: Patient is a 64-year-old lady presented with right-sided weakness, with associated confusion as well as expressive aphasia 1. Transient ischemic attack ?Patient admitted to monitored bed placed on every [address] and CTA were unremarkable. Ordered MRI of the brain with consultation planned for neurology if MRI comes back positive. Patient was started on dual antiplatelet therapy with aspirin and Plavix as well as high-dose statins: MRI came back negative for acute CVA patient assessment was that of a transient i schemic attack. Patient is on antiplatelet therapy did continue in addition to her statin therapy. With a suspicion of CVA at the time of admission patient was expected to stay for at least 2 midnight however once CVA was ruled out patient was discharged the following day 2. Hypertension ~ blood pressure controlled, home medications continued with dose adjustment as needed 3. COPD currently not in exacerbation ?Aerosol treatment as needed 4. Dyslipidemia ~patient is on statin therapy, continued at home dose 5. DVT prophylaxis ?Lovenox 6. Insomnia patient requested for sleep aid prescription was written for melatonin Objective: GENERAL: cooperative HEENT: Atraumatic; EYES; Anicteric, Normal Conjunctiva NECK; supple, normal thyroid, RESPIRATORY: Diminished to auscultation CARDIOVASCULAR: Regular S1 S2, GI: soft, normoactive bowel sounds, : No Renal angle tenderness; EXTREMITIES: No edema, no clubbing, MUSCULOSKELETAL: no muscle waisting NEURO: Awake; no lateralizing signs SKIN: No Rash PSYCH; Flat affect - Physical Exam Vitals/I&O's: Vital Signs Temp Pulse Resp BP Pulse Ox 97.9 F 72 14 93/61 99 10/26/19 05:49 10/26/19 06:46 10/26/19 05:49 10/26/19 05:49 10/26/19 05:49 Oxygen Flow Rate (L/min) 2 Oxygen Delivery Method Nasal Cannula Weight: 66.2 kg Body Mass Index (BMI) 25.8 Finger Stick Blood Glucose 94 Intake and Output for Last 24 Hours 10/24/19 10/25/19 10/26/19 23:59 23:59 23:59 Intake Total 480 / 605 125 / 125 Balance 480 / 605 125 / 125 Laboratory Results 10/25/19 08:45: WBC 8.2, RBC 4.59, Hgb 13.5, Hct 43.2, MCV 94.1, MCH 29.4, MCHC 31.3 L, RDW Std Deviation 43.7, RDW Coeff of Deonte 12.8, Plt Count 169, MPV 10.2, Immature Gran % (Auto) 0.200, Neut % (Auto) 61.4, Lymph % (Auto) 24.2, Gregg % (Auto) 9.9, Eos % (Auto) 3.7, Baso % (Auto) 0.6, Absolute Neuts (auto) 5.0, Absolute Lymphs (auto) 1.98, Nucleated RBC % 0 10/25/19 08:45: PT 12.6, INR 1.0, APTT 28.1 10/25/19 08:45: Sodium 140, Potassium 4.3, Chloride 99, Carbon Dioxide 38.0 H, Anion Gap 3 L, BUN 14, Creatinine 0.75, Estim Creat Clear Calc 61.86, Est GFR (MDRD) Af Amer 99, Est GFR (MDRD) Non-Af 82, BUN/Creatinine Ratio 18.6, Glucose 100, Calcium 9.6, Troponin I < 0.015 10/25/19 08:45: POC Glucose 94 10/25/19 11:16: Troponin I < 0.015 10/26/19 05:16: WBC 6.4, RBC 4.38, Hgb 12.7, Hct 41.5, MCV 94.7, MCH 29.0, MCHC 30.6 L, RDW Std Deviation 44.6 H, RDW Coeff of Deonte 12.7, Plt Count 148 L, MPV 10.2, Immature Gran % (Auto) 0.300, Neut % (Auto) 62.1, Lymph % (Auto) 22.6, Gregg % (Auto) 11.4 H, Eos % (Auto) 3.0, Baso % (Auto) 0.6, Absolute Neuts (auto) 4.0, Absolute Lymphs (auto) 1.45, Nucleated RBC % 0 10/26/19 05:16: Sodium 140, Potassium 3.9, Chloride 101, Carbon Dioxide 36.0 H, Anion Gap 3 L, BUN 17, Creatinine 0.80, Estim Creat Clear Calc 57.99, Est GFR (MDRD) Af Amer 93, Est GFR (MDRD) Non-Af 77, BUN/Creatinine Ratio 21.4 H, Glucose 94, Calcium 9.2, Total Bilirubin 0.50, AST 17, ALT 14, Alkaline Phosphatase 59, Total Protein 6.7, Albumin 3.3, Globulin 3.4, Albumin/Globulin Ratio 1.0, Triglycerides 90, Cholesterol 133, LDL Cholesterol 58, VLDL Cholesterol 18, HDL Cholesterol 57, TSH 2.05 Current Medications Acetaminophen (Tylenol) 650 mg PO Q6H PRN PRN PRN Reason: Pain Score 1-10/Temp > 100.7 F Last Admin: 10/25/19 21:04 Dose: 650 mg Documented by: Al Hydroxide/Mg Hydroxide (Mylanta Ii) 30 ml PO Q6H PRN PRN PRN Reason: Gastric Burning Albuterol Sulfate (Ventolin Aerosols) 2.5 mg INHALATION Q2H PRN PRN PRN Reason: SOB/Wheezing Albuterol/Ipratropium (Duoneb) 3 ml INHALATION Q6HWA.RT [facility] Last Admin: 10/26/19 07:01 Dose: 3 ml Documented by: Aspirin (Aspirin, Baby) 81 mg PO DAILY@0800 [facility] Atorvastatin Calcium (Lipitor) 80 mg PO QHS [facility] Last Admin: 10/25/19 21:04 Dose: 80 mg Documented by: Budesonide (Pulmicort Aerosol) 0.5 mg INHALATION Q12H.RT [facility] Last Admin: 10/26/19 07:01 Dose: 0.5 mg Documented by: Buspirone HCl (Buspar) 5 mg PO TID [facility] Last Admin: 10/26/19 05:09 Dose: Not Given Documented by: Carvedilol (Coreg) 12.5 mg PO BID [facility] Last Admin: 10/25/19 21:04 Dose: 12.5 mg Documented by: Clopidogrel Bisulfate (Plavix) 75 mg PO DAILY [facility] Duloxetine HCl (Cymbalta) 60 mg PO QPM [facility] Last Admin: 10/25/19 21:04 Dose: 60 mg Documented by: Enoxaparin Sodium (Lovenox) 40 mg SC DAILY [facility] F[facility] ([facility]) [facility] Hydralazine HCl (Apresoline Iv) 5 mg IV Q30M PRN PRN Reason: to maintain BP goals Sodium Chloride () 250 mls @ 15 mls/hr IV .[id number] PRN PRN Reason: Saline Flush Sodium Chloride () 250 mls @ 15 mls/hr IV .[id number] PRN PRN Reason: Additional IVPB Infusion Labetalol HCl (Trandate) 10 - 20 mg IV Q10M PRN PRN PRN Reason: to maintain BP goals Magnesium Hydroxide (Milk Of Magnesia) 30 ml PO DAILY PRN PRN PRN Reason: Constipation Melatonin (Melatonin) 3 mg PO QHS PRN PRN PRN Reason: INSOMNIA Last Admin: 10/25/19 21:04 Dose: 3 mg Documented by: Nitroglycerin (Nitrostat) 0.4 mg SUBLINGUAL Q5M PRN PRN Reason: CARDIAC/CHEST PAIN Ondansetron HCl (Zofran) 4 mg IV Q8H PRN PRN PRN Reason: NAUSEA/VOMITING Pantoprazole Sodium (Protonix) 40 mg PO QAM [facility] Sodium Chloride () 10 - 40 ml IV UD PRN PRN Reason: SALINE FLUSH Spironolactone (Ald[facility]one) [facility] Discharge Diet: No Restrictions Discharge Activity: Return to Normal Activity Home Medications: Medications to take at Discharge Multivitamin with Minerals [Multiple Vitamin] 1 tab PO DAILY 09/14/18 Ipratropium/Albuterol Sulfate [Duoneb] 3 ml INHALATION 4X/DAY 11/05/18 Acetaminophen [Tylenol] 1,000 mg PO Q6H PRN PRN tab 11/15/18 budesonide-formoterol HFA 160 mcg-4.5 mcg/actuation aerosol inhaler 2 puff INHALATION BID #1 ea 01/02/19 folic acid 1 mg tablet 1 mg PO DAILY #30 tab 03/16/19 aspirin 81 mg tablet,delayed release 81 mg PO DAILY #90 tab 04/03/19 pantoprazole 40 mg tablet,delayed release 40 mg PO QAM #90 tab 04/03/19 spironolactone 25 mg tablet 12.5 mg PO DAILY #90 tab 04/03/19 albuterol sulfate 90 mcg/actuation aerosol inhaler 1 puff INHALATION Q4H PRN PRN #1 inhaler 06/06/19 duloxetine 60 mg capsule,delayed release 60 mg PO QPM #90 cap 06/06/19 carvedilol 12.5 mg tablet 12.5 mg PO BID #180 tab 06/24/19 buspirone 5 mg tablet 5 mg PO TID #90 tab 07/14/19 mirtazapine 15 mg tablet See Rx Instructions .ROUTE .COMPLEX #30 tab 08/16/19 atorvastatin 20 mg tablet 20 mg PO QHS #90 tab 09/25/19 Melatonin 3 mg PO QHS PRN PRN #60 tab 10/26/19 Following Prescrptions Were Given to Patient: Melatonin 3 mg PO QHS PRN PRN #60 tab PRN Reason: Insomnia Transmission Status: Pending to [facility] #30 Primary Care Physician: Glenn Ulloa MD [Primary Care Provider] - Please follow up with your Primary Care Physician in: CALL FOR FOLLOW UP APPOINTMENT Disposition: Home Minutes spent on discharge:: 35 Patient Condition:: Stable Medical Necessity - Tobacco Use Smoking Status: Former smoker Meaningful Use Info Meaningful Use Diagnoses (Choose all that apply): None applicable Inpatient E&M: 46764 Disch Hosp
[2019-10-26 08:48] VITALS: BMI 25.8
[2019-10-26 09:14] VITALS: BP 110/70; PULSE 78; RESP 15; TEMP 36.6; O2SAT 94
[2019-10-26] MEDS: Spironolactone 25 MG Tablet 12.5 MG PO (09:19)
[2019-10-26] MEDS: Pantoprazole Sodium 40 MG Tablet PO (09:20)
[2019-10-26] MEDS: Folic Acid 1 MG Tablet PO (09:20)
[2019-10-26] MEDS: Clopidogrel Bisulfate 75 MG Tablet PO (09:20)
[2019-10-26] MEDS: Enoxaparin 40 MG/0.4 ML Syringe SC (09:20)
[2019-10-26] MEDS: Carvedilol 12.5 MG Tablet PO (09:20)
[2019-10-26] MEDS: Aspirin 81 MG TAB.CHEW PO (09:20)
--- NOTE | 2019-10-26 10:13 | CASEMGMT ---
SW completed a PHQ-9 with patient as she had a TIA. She scored a 3 which indicates minimal depression. SW offered counseling resources, but patient declined stating she just needs help with sleeping. Farzaneh MALHOTRA MSW
--- NOTE | 2019-10-26 10:20 | CASEMGMT ---
RN SPIKE Face to Face with patient for initial transition planning/care coordination assessment. RN CM introduced self and role at [facility]. Patient sitting in the chair, alert and oriented. Patient willing to participate in assessment and is able to answer all questions appropriately. Care providers, pharmacy, and demographics verified. Patient wishes to discharge home, denies need for home health at this time. Patient states she has no further needs or concerns at this time. CM to follow for discharge planning needs that may arise. PCP: Artemio Specialists: none Preferred Pharmacy: [facility] Insurance: [facility] Prescription Benefit: yes Living Will/HPOA: none LNOK: significant other Living Arrangements: Patient lives with significant other in 2 story home with bed and bath on first floor. 5 steps to enter the home with railing. Patient states she is independent at home. Transportation: self/significant other DME/HHC: Patient states she has shower chair, BSC, cane, walker, nebulizer, and oxygen at night through [employer]. Patient denies previous HHC. Disposition Plan: Patient to discharge home with family support and follow-up plans in place. Carla BROWN, RN, CM
== END 2019-10-26 10:42 | disposition home or self-care (01) | DRG 69 ==
LOC: ED 09:57 → PCU 10:51
PROVIDERS: Admitting Provider Internal Medicine; Emergency Provider Emergency Medicine; PCP Internal Medicine; Visit Provider Internal Medicine
DX: G45.9 Transient cerebral ischemic attack, unspecified (principal); I50.22 Chronic systolic (congestive) heart failure; I42.8 Other cardiomyopathies; G81.91 Hemiplegia, unspecified affecting right dominant side; R47.01 Aphasia; I11.0 Hypertensive heart disease with heart failure; J44.9 Chronic obstructive pulmonary disease, unspecified; F32.9 Major depressive disorder, single episode, unspecified; I34.0 Nonrheumatic mitral (valve) insufficiency; F41.9 Anxiety disorder, unspecified; E78.5 Hyperlipidemia, unspecified; I27.21 Secondary pulmonary arterial hypertension; Z87.891 Personal history of nicotine dependence; Z79.82 Long term (current) use of aspirin; Z86.718 Personal history of other venous thrombosis and embolism; Z86.73 Personal history of transient ischemic attack (TIA), and cerebral infarction without residual deficits; Z90.49 Acquired absence of other specified parts of digestive tract; Z98.41 Cataract extraction status, right eye; Z98.42 Cataract extraction status, left eye; I25.2 Old myocardial infarction; R29.704 NIHSS score 4
CPT/HCPCS: 36415; 70450; 70496; 70498; 70551; 71045; 80048; 80053; 80061; 82962; 84443; 84484; 85025; 85610; 85730; 92523; 92610; 93005; 93306; 94640; 97110; 97116; 97162; 97166; 97535; 97802; 99251; 99285; Q9967; A4216; G0463

== ENCOUNTER 2020-02-01 13:30 | Outpatient (RCR) | payer MEDICARE, SELFPAY ==
[2020-01-19 13:38] VITALS: BMI 25.8
--- NOTE | 2020-01-25 16:55 | HP.PTEVAL_ITS ---
Patient's Visit Information MARCO MAY is a 64 year old F referred to Physical Therapy by Dr. Glenn Ulloa MD with a diagnosis of Right Shoulder Pain. Date of Evaluation: 01/25/20 Physical Therapist: Shanti Suárez DPT - Visit Plan Frequency: 2x /Week Duration: 4 Weeks Plan: Focus on scapular s/s, ROM and ultrasound for modality of choice - Subjective Patient reports her right shoulder has been bothering her for about 2 weeks. I nsidious onset- right hand dominate. Pain is located in the deltoid and radiates to the wrist. Describes the pain as dull and achy but it can be sharp. Agg: trying to pull her pants up and get dressed. Worst: 10/10 Eases: keeping it close to her body. Sleep: disturbed- belly and back sleeper. 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 No neck pain, fontana, blurred vision or dizziness. X-rays but no MRI. Gave her naproxen but did not given an injections. Work: does not work. Fully I prior to the shoulder bothering her. PMHx/Meds: no change since MD note. she reports that she is pretty active but does not exercise. - Objective Posture: FH, RS- increased guarding of the right UE. Gait: slow- decreased arm swing and trunk rotation. Palpation: tender along upper trap, bicipital groove, Ac joint. ROM: Elbow/Wrist/hand: WNL. Elbow: WNl with pain at end range flexion. Shoulder: Arom: flexion: 150 degrees, abd: 140 degrees with compensation, IR: belt line, ER: 40 degrees all with significant pain- attempted PROM but pt is unable to relax for measurement accuracy. Strength:finger dexterity: WNL, Wrist: 4/5, Elbow: 4/5 with pain, Shoulder isometrics: flex/abd: 4-/5 IR/ER: 4/5, extn: 4+/5 all with pain. Special Test: Impingment: positive, Empty Can: positive, Speeds: positive - Goals Goal 1:: Patient will be I with HEP and progression Goal Time Frame: 4-6 Weeks Goal 2:: Patient will demo full AROM of the right shoulder Goal Time Frame: 4-6 Weeks Goal 3:: Patient will maintain proper posture t/o tx session to demo increased scap s/s Goal Time Frame: 4-6 Weeks Goal 4:: Patient will report 0/10 pain for 1 week Goal Time Frame: 4-6 Weeks - Rehabilitation Potential Physical Therapy Diagnosis: Patient presents with hypomobility- she has decreased ROM, strength and muscular endurance leading to poor posture and increased pain with ADL's. Rehabilitation Potential: Good - Anticipated Interventions Patient/Client Instruction: Educate patient on: Benefits of Fitness Program Therapeutic Exercise to Include: Strength training, Endurance training, Body mechanics, Postural training, Flexibilty training, Gait and locomotor training, Neuromotor development, Passive ROM, Active ROM, Dynamic Lumbar Stabilization, Scapular Strength/Stabilization For the Purpose of:: To improve muscle performance and motor function TENS: Yes Cryotherapy (ice pack, ice massage): Yes Thermo therapy (hot pack): Yes Ultrasound (thermal/non thermal): Yes For the Purpose of:: To decrease pain Thank you for the opportunity to evaluate your patient. For Medicare and Medicare HMO plans, please review the plan of care and approve it. It will need to be FAXED BACK to us at [phone] for Medicare purposes. For Medicare only, by signing this I certify the plan of care. Please let me know if there are questions or concerns regarding this plan of care. Physician Signature: Date:
--- NOTE | 2020-04-01 16:22 | HP.PT.NRP ---
MARCO MAY was seen in my office for initial evaluation on 01/25/20. The following Plan of Care was established for this patient: Initial Frequency: 2x /Week Initial Duration: 4 Weeks Patient/Client Instruction: Educate patient on: Benefits of Fitness Program Therapeutic Exercise to Include: Strength training, Endurance training, Body mechanics, Postural training, Flexibilty training, Gait and locomotor training, Neuromotor development, Passive ROM, Active ROM, Dynamic Lumbar Stabilization, Scapular Strength/Stabilization For the Purpose of:: To improve muscle performance and motor function TENS: Yes Cryotherapy (ice pack, ice massage): Yes Thermo therapy (hot pack): Yes Ultrasound (thermal/non thermal): Yes For the Purpose of:: To decrease pain This patient was last seen in our office . Pertinent comments regarding their Physical therapy will appear below: Patient has not returned to PT in over 6 weeks- appropriate for d/c and return to MD for further evaluation as needed. At this point I will be discontinuing this patient from physical therapy. I would be happy to see this patient again in the future if found appropriate by the physician. Thank you! TORO FloresT
== END 2020-02-01 19:00 | disposition home or self-care (01) ==
LOC: PT 13:30
PROVIDERS: PCP Internal Medicine; Referring Provider Internal Medicine; Visit Provider Internal Medicine
DX: M25.511 Pain in right shoulder (principal); M75.80 Other shoulder lesions, unspecified shoulder
CPT/HCPCS: 97014; 97110; 97161; G0283

== ENCOUNTER 2020-07-16 17:56 | Emergency (ER) | payer MEDICARE, SELFPAY ==
[2020-05-29 10:06] VITALS: BMI 28.1
[2020-07-16 17:57] VITALS: BP 132/82; PULSE 100; RESP 17; TEMP 35.9; O2SAT 93; BMI 28.3
--- NOTE | 2020-07-16 18:06 | RAD_ITS ---
STUDY: X-RAY - LEFT RADIUS AND ULNA REASON FOR EXAM: Female, 64 years old. Tripped over dog this morning and fell. TECHNIQUE: 2 view(s) of the forearm. COMPARISON: None. FINDINGS: There is no demonstrated soft tissue swelling. Normal visualized radius. Normal visualized ulna. There is no acute fracture, dislocation or destructive osseous pathology. The wrist and elbow appear intact. RAD/Forearm 2 Views IMPRESSION: Normal x-ray examination of the radius and ulna. Electronically Signed: Willy Dick DO at 18:17 EST Tel [phone], Service support ,
--- NOTE | 2020-07-16 18:32 | ED.DCSUM_ITS ---
History of Present Illness Chief Complaint: Fall Narrative: This patient is a 64-year-old female who presents with a left forearm injury. She stumbled over the dog and fell onto her left forearm on the floor. She is not anticoagulated. No other injuries. No head injury injury to the chest abdomen back. She complains of pain in the left forearm only. No numbness tingling weakness or loss of function. Past Medical History - Allergies and Home Meds Allergies/Adverse Reactions: Allergies tetanus and diphtheria toxoids [tetanus & diphtheria toxoids] Allergy (Verified 07/16/20 17:56) Hives Primary Care Physician: Glenn Ulloa MD [Primary Care Provider] - Past Medical History: - - COPD, hypertension Surgical History: appendectomy, cholecystectomy, - - , Lumpectomy Smoking Status: Former smoker - Family History Maternal Family History: Family History (Last Reviewed 04/10/20 @ 11:43 by Ema tSevens NP, [id number] [employer]) Sister Cancer Father Cancer Mother Cancer Family History: Reports: Cancer - Lung Paternal Family History: Family History (Last Reviewed 04/10/20 @ 11:43 by Ema Stevens NP, M60A2 [employer]) Sister Cancer Father Cancer Mother Cancer Family History: Reports: Cancer - Lung Sibling Family History: Family History (Last Reviewed 04/10/20 @ 11:43 by Ema Stevens NP, M60A2 [employer]) Sister Cancer Father Cancer Mother Cancer Family History: Reports: Cancer - lung Review of Systems All systems negative except as indicated General: Denies: Fever Eyes: Denies: Visual changes - bilaterally Cardiovascular: Denies: Chest pain Respiratory: Denies: Dyspnea Gastrointestinal: Denies: Abdominal pain, Vomiting Musculoskeletal: Reports: Extremity Pain Skin: Denies: Rash Neurological: Denies: Headache Hematologic: Denies: Easy bruising Allergy: Denies: Uticaria Physical Exam Vital Signs/Narrative: Vital Signs Temp Pulse Resp BP Pulse Ox 07/16/20 17:57 96.7 F L 100 17 132/82 H 93 Inital Vital Signs reviewed: Yes General: Well nourished Head: Normocephalic Eyes: EOMI ENT: Moist mucous membranes Cardiovascular: Regular rate Respiratory: No distress Extremities: - - Patient has a small hematoma over the left forearm she has no bony deformity she has no tenderness at the elbow wrist or hand. She has normal motor function normal sensation to light touch brisk capillary refill easily palpable radial pulse Skin: Normal color Neurological: Alert Psychological: Normal affect Diagnostic/Tx/Re-eval Impressions Forearm X-Ray 07/16/20 18:06 IMPRESSION: Normal x-ray examination of the radius and ulna. Electronically Signed: Willy DickDO at 18:17 EST Tel [phone], Service support , 07/16/20 18:06 Forearm 2 Views [RAD] Stat - Medical Decision Making Forearm x-ray was obtained in triage and read by radiology prior to being brought to her room in my evaluation. This was read as no fracture. I did independently review the images and agree. Patient was advised on supportive care. Patient discharged to follow-up as an outpatient. Patient discharged. ED Disposition - Plan for ED Patient: Disposition: Home or Assisted Living Diagnosis: Forearm contusion Instructions: ED Contusion, Upper Extremity Referrals: Glenn Ulloa MD [Primary Care Provider] -
== END 2020-07-16 19:16 | disposition home or self-care (01) ==
LOC: ED 18:45
PROVIDERS: Emergency Provider Emergency Medicine; PCP Internal Medicine
DX: S50.12XA Contusion of left forearm, initial encounter (principal); W01.0XXA Fall on same level from slipping, tripping and stumbling without subsequent striking against object, initial encounter; I10 Essential (primary) hypertension; J44.9 Chronic obstructive pulmonary disease, unspecified; Z80.1 Family history of malignant neoplasm of trachea, bronchus and lung; Z87.891 Personal history of nicotine dependence; Z90.49 Acquired absence of other specified parts of digestive tract
CPT/HCPCS: 73090; 99282

== ENCOUNTER → 2020-10-21 10:04 | Outpatient (CLI) | payer MEDICARE, SELFPAY ==
[2020-10-21 12:49] LABS: Absolute Lymphocyte Count 1.15 X10^3/uL (0.83-4.51); Absolute Neutrophil Count 5.1 X10^3/uL (2.0-7.7); Basophil# 0.03 X10^3/uL; Basophil% 0.4 % (0-1); Eosinophil# 0.37 X10^3/uL; Eosinophils% 5.1 % (0-5); Hematocrit 40.7 % (37-47); Hemoglobin 11.6 g/dL (12.0-15.0); Lymphocyte # 1.15 X10^3/ul (0.83-4.51); Lymphocyte % 15.8 % (19-41); Mean Corp Hgb Conc 28.5 g/dL (32-36); Mean Corpuscular Hgb 28.1 pg (27.0-32.0); Mean Corpuscular Volume 98.5 fL (81-99); Mean Platelet Vol. 10.7 fl (6.2-12.0); Monocyte# 0.62 X10^3/uL; Monocyte% 8.5 % (0-10); NRBC Flagged by Analyzer 0 % (0-5); Neutrophil # 5.08 X10^3/uL (2.7-7.7); Neutrophil % 69.7 % (47-70); Platelet Count 162 K/mm3 (150-450); RBC Distribution Width CV 13.4 % (11.6-14.6); RBC Distribution Width SD 48.5 fl (35.1-43.9); Red Blood Count 4.13 M/mm3 (4.2-5.4); White Blood Count 7.3 K/mm3 (4.4-11.0)
[2020-10-21 13:17] LABS: ALB/GLOB Ratio 0.9 RATIO (0.9-2.4); AST(SGOT) 14 U/L (15-37); Alanine Aminotransfer ALT/SGPT 17 U/L (13-56); Albumin, Serum 3.4 g/dL (3.2-5.0); Alkaline Phosphatase 81 U/L (45-117); Anion Gap 1 (5-15); BUN 12 mg/dL (7-18); BUN/Creat Ratio 14.5 RATIO (10-20); Calcium,Total 8.6 mg/dL (8.5-10.1); Chloride 101 mmol/L (98-107); Creatinine, Serum 0.83 mg/dL (0.55-1.02); EST Glomerular Filtration Rate 73 mL/min (>60); Est Glom Filt Rate - Afr Amer 89 mL/min (>60); Globulin 3.9 g/dL (2.2-4.2); Glucose 117 mg/dL (74-106); Potassium 4.1 mmol/L (3.5-5.1); Protein, Total 7.3 g/dL (6.4-8.2); Sodium Level 140 mmol/L (136-145); T4 Free Direct 1.01 ng/dL (0.76-1.46); Thyroid Stim Hormone (TSH) 3.39 uIU/mL (0.358-3.74)
== END ==
PROVIDERS: PCP Internal Medicine; Referring Provider Internal Medicine; Visit Provider Internal Medicine
DX: I10 Essential (primary) hypertension (principal); F32.9 Major depressive disorder, single episode, unspecified; F41.9 Anxiety disorder, unspecified
CPT/HCPCS: 36415; 80053; 84439; 84443; 85025

== ENCOUNTER 2020-11-02 02:28 | Inpatient (IN) | payer MEDICARE, SELFPAY ==
[2020-11-02] VITALS (26 sets, daily range): BP systolic 95–152; BP diastolic 58–96; PULSE 66–92; RESP 12–24; TEMP 36.2–37.1; O2SAT 55–100; BMI 29.8; BMI 29.6
--- NOTE | 2020-11-02 02:49 | EKG12_ITS ---
Test Reason : FALL Blood Pressure : / mmHG Vent. Rate : 090 BPM Atrial Rate : 090 BPM P-R Int : 130 ms QRS Dur : 084 ms QT Int : 366 ms P-R-T Axes : 062 056 065 degrees QTc Int : 447 ms Normal sinus rhythm Normal ECG Confirmed by RUSS MENDES, ANALY ([id number]), writer editor NICOLE ARANGO ([id number]) on 11/05/2020 11:02:25 AM Referred By: RAJESH Confirmed By:ANALY SOLANO MD
--- NOTE | 2020-11-02 02:49 | CT_ITS ---
EXAM: CT HEAD WITHOUT INTRAVENOUS CONTRAST : 1955 CLINICAL INDICATION: Fall, struck head TECHNIQUE: Multiple axial images were obtained of the head without intravenous contrast. This CT exam was performed using one or more of the following dose reduction techniques: automated exposure control, adjustment of the mA and/or kV according to patient size, and/or use of iterative reconstruction technique. This report was created using [employer] report generation technology. COMPARISON: 10/25/2019 FINDINGS: BRAIN AND EXTRA-AXIAL SPACES: There is encephalomalacia from remote infarct in the posterior parieto-occipital regions bilaterally. No intra- or extra-axial hemorrhage. No intracranial mass or mass effect. Posterior fossa structures are unremarkable. Ventricles are appropriate for age. No hydrocephalus. Basal cisterns are patent. BONES/JOINTS: Unremarkable. No discrete lytic or blastic abnormalities. SOFT TISSUES: There is a scalp hematoma over the high posterior right calvarium. SINUSES: Unremarkable as visualized. Clear. MASTOID AIR CELLS: Unremarkable. Clear. ORBITS: Visualized globes, extraocular muscles, optic nerves and retrobulbar fat appear unremarkable. CT/Brain/Head without Contrast IMPRESSION: 1. No acute intracranial abnormality. There has been no change from the reference exam. 2. Stable remote bilateral parietal occipital infarct. Individualized dose optimization techniques were used for this CT. at 0335 Reported and signed by: Garrison Yoo MD Electronically Signed: Garrison Yoo MD at 3:34 EDT Tel , Service support ,
--- NOTE | 2020-11-02 03:01 | EX.ED.DYSGE1 ---
HPI History of Present Illness Chief Complaint: Fall Informant: patient and spouse/S.O. Narrative Narrative: Patient is a 65-year-old female with a past medical history of strokes, [place], hypertension, hyperlipidemia, COPD on 2 L of oxygen at baseline. She presents to the emergency department for altered mental status. She has been confused over the past 3 or 4 days. Yesterday she ended up tripping over the dog's and striking the back of her head. No known loss of consciousness. She has become significantly more confused since this head trauma. She is on aspirin but no other blood thinning medications. She denies any neck pain or vision changes. She does have a headache in the posterior region of the scalp. She denies any chest pain or shortness of breath. No abdominal pain or nausea/vomiting. No weakness or loss of sensation in any extremity. In the emergency department she asked if her sister was here. She apparently has been confused per the . This is new for her. [facility] Medical History (Updated 11/02/20 @ 06:[address] Chris Do, ) Acid-base disorder, mixed Alcohol abuse Anxiety Anxiety and depression Chronic anemia Chronic respiratory insufficiency Chronic systolic (congestive) heart failure CO2 narcosis COPD (chronic obstructive pulmonary disease) Daytime hypersomnia Essential (primary) hypertension GERD (gastroesophageal reflux disease) Hemorrhagic cerebrovascular accident (CVA) (02/09/17) History of DVT of lower extremity (02/11/17) History of non-ST elevation myocardial infarction (NSTEMI) (02/03/17) Hyperlipidemia Hypotension arterial Insomnia Insomnia Ischemic cerebrovascular accident (CVA) (02/06/17) Non-ischemic cardiomyopathy Non-rheumatic mitral regurgitation TIO (obstructive sleep apnea) Secondary pulmonary arterial hypertension Stroke TIA (transient ischemic attack) (10/25/19) Home Medications multivitamin with minerals 1 tab PO DAILY 09/14/18 [History Last Taken 10/25/19] ipratropium-albuterol 3 ml INHALATION 4X/DAY 11/05/18 [History Last Taken 10/25/19] acetaminophen 1,000 mg PO Q6H PRN PRN tab 11/15/18 [Rx Last Taken Unknown] albuterol sulfate 90 mcg/actuation aerosol inhaler 1 puff INHALATION Q4H PRN PRN #1 inhaler 06/06/19 [Rx Last Taken Unknown] melatonin 3 mg PO QHS PRN PRN #60 tab 10/26/19 [Rx Last Taken Unknown] aspirin 81 mg tablet,delayed release 81 mg PO DAILY #90 tab 01/03/20 [Rx Last Taken Unknown] folic acid 1 mg tablet 1 mg PO DAILY #30 tab 03/01/20 [Rx Last Taken Unknown] hydroxyzine HCl 25 mg tablet 25 mg PO DAILY PRN #30 tab 03/01/20 [Rx Last Taken Unknown] pantoprazole 40 mg tablet,delayed release 40 mg PO QAM #90 tab 03/01/20 [Rx Last Taken Unknown] rosuvastatin 20 mg tablet 20 mg PO DAILY #90 tab 03/01/20 [Rx Last Taken Unknown] spironolactone 25 mg tablet 12.5 mg PO DAILY #90 tab 03/01/20 [Rx Last Taken Unknown] budesonide-formoterol HFA 160 mcg-4.5 mcg/actuation aerosol inhaler 2 puff INHALATION BID #10.2 g 05/29/20 [Rx Last Taken Unknown] tiotropium bromide 2.5 mcg/actuation mist for inhalation 2 puff INHALATION QDAY #4 g 05/29/20 [Rx Last Taken Unknown] carvedilol 12.5 mg tablet 12.5 mg PO BID #180 tab 07/01/20 [Rx Last Taken Unknown] ropinirole 0.25 mg tablet 0.5 mg PO QHS #60 tab 07/01/20 [Rx Last Taken Unknown] duloxetine 60 mg capsule,delayed release 60 mg PO QPM #90 cap 07/11/20 [Rx Last Taken Unknown] Allergy/AdvReac Type Severity Reaction Status Date / Time tetanus and diphtheria Allergy Hives Verified 11/02/20 02:33 toxoids [tetanus & diphtheria toxoids] Family History Sister Cancer lung Father Cancer lung Mother Cancer lung Surgical History H/O: section History of bilateral cataract extraction History of cholecystectomy History of lumpectomy Hx of appendectomy Social History Smoking Status: Former smoker how long ago did patient quit smokin, 1pk/day second hand exposure: Yes alcohol intake: former substance use type: does not use what type of physical activity do you participate in: walking frequency: daily ROS ROS ED Constitutional Constitutional ED: Denies chills or fever(s) Eyes Eyes: Denies change in vision ENT ENT ED: Denies epistaxis or rhinorrhea Cardiovascular Cardiovascular: Denies chest pain or palpitations Respiratory/Chest Respiratory/Chest: Denies cough, dyspnea or dyspnea on exertion Gastrointestinal Gastrointestinal: Denies abdominal pain, diarrhea, nausea or vomiting Genitourinary Genitourinary ED: Denies dysuria, hematuria or urinary frequency Musculoskeletal Musculoskeletal: Denies back pain or neck pain Integumentary Reports Abrasions; Denies rash Neurologic Neurologic: Reports headache(s) and other Details: Confusion ; Denies dizziness or weakness EXAM Physical Exam Const Vital Signs: 11/02/20 02:30 11/02/20 02:33 11/02/20 02:40 Temperature 97.1 F L Temperature Source Temporal Pulse Rate 92 Respiratory Rate 22 H Respiratory Pattern Tachypnea Blood Pressure 152/96 H Blood Pressure Mean 114 Pulse Ox 55 93 Oxygen Delivery Method Room Air Nasal Cannula Oxygen Flow Rate (L/min) 3 11/02/20 03:09 11/02/20 03:30 11/02/20 04:12 Temperature 98.6 F Temperature Source Oral Pulse Rate 86 Respiratory Rate 20 H Respiratory Pattern Blood Pressure 112/60 95/76 Blood Pressure Mean 77 82 Pulse Ox 95 96 Oxygen Delivery Method Nasal Cannula Nasal Cannula Oxygen Flow Rate (L/min) 3 2 11/02/20 04:46 11/02/20 05:23 Temperature Temperature Source Pulse Rate 87 90 Respiratory Rate 19 H 18 Respiratory Pattern Blood Pressure 109/86 H Blood Pressure Mean 93 Pulse Ox 94 Oxygen Delivery Method Nasal Cannula Oxygen Flow Rate (L/min) 2 Positive well nourished and well developed General Appearance ED: well developed and NAD HEENT Reports normocephalic and head/scalp atraumatic HEENT Narrative: Contusion to occipital region of scalp. trauma Eyes PERRL and EOMs intact bilaterally Neck supple General: Negative for tenderness Chest Wall inspection of chest normal Resp normal respiratory effort Auscultation: diminished lung sounds; Negative for rales, rhonchi or wheezes Cardio regular rate, regular rhythm and no murmurs GI normal to inspection, nondistended, normoactive bowel sounds and non-tender Palpation: soft; Negative for guarding or rebound tenderness present Back/Spine Cervical Spine: Negative for cervical spine tenderness Thoracic Spine / Upper Back: Negative for thoracic spinal tenderness Lumbar Spine / Lower Back: Negative for lumbar spinal tenderness Extremity normal to inspection General Extremety ED: Negative for edema or tenderness General Extremity: Negative for edema Neuro CN's II-XII intact bilaterally and no sensory deficits noted Neuro Narrative: Oriented to person and place but not time. Sensorium / Orientation: alert Motor Exam: strength 5/5 throughout Psych mental status grossly normal Skin no rashes or lesions noted MDM MDM MDM Narrative Medical decision making narrative: Patient presents to the ED for confusion. She has been confused over the past few days but became significantly worse after she tripped over the dog and struck the back of her head. She is not on anticoagulation. Will check basic lab work as well as CT scan of the head. On arrival to the ED she was hypoxic satting in the 50s. She was not on her baseline oxygen at that time. Patient denied any chest pain or shortness of breath with this. She was started back on supplemental oxygen. Patient denies any infectious symptoms. She states she has had her Covid vaccinations. Patient's oxygen level did come up with supplemental O2 by nasal cannula. She was becoming more alert. She is still confused and tried to put the pulse oximeter in her mouth. She does not seem to be back to her baseline despite having a normal O2 saturation now. We did try to ambulate the patient and she desatted to 85% on her baseline oxygen. She was given a DuoNeb breathing treatment given the decreased breath sounds. She is still satting in the low 90s just sitting in the bed. Given the fact she is hypoxic, altered I do feel patient would be better served in the hospital setting. She understands and is agreeable this plan. Hospitalist did request a CT scan of the chest to evaluate for PE prior to being admitted. Lab Data Labs: Laboratory Results - last 24 hr 11/02/20 11/02/20 11/02/20 02:55 02:55 02:55 WBC 11.6 H RBC 3.87 L Hgb 11.1 L Hct 38.3 MCV 99.0 MCH 28.7 MCHC 29.0 L RDW Std Deviation 48.0 H RDW Coeff of [place] 13.2 Plt Count 177 MPV 10.1 Immature Gran % (Auto) 1.000 H Neut % (Auto) 79.1 H Lymph % (Auto) 12.5 L [place] % (Auto) 6.1 Eos % (Auto) 1.0 Baso % (Auto) 0.3 Absolute Neuts (auto) 9.2 H Absolute Lymphs (auto) 1.45 Nucleated RBC % 0 Sodium 142 Potassium 4.0 Chloride 100 Carbon Dioxide 40.0 H Anion Gap 2 L BUN 13 Creatinine 0.80 Estim Creat Clear Calc 57.22 Est GFR (MDRD) Af Amer 93 Est GFR (MDRD) Non-Af 77 BUN/Creatinine Ratio 16.3 Glucose 108 H Calcium 8.7 Total Bilirubin 0.50 AST 21 ALT 17 Alkaline Phosphatase 87 Troponin I < 0.015 B-Natriuretic Peptide 170.7 H Total Protein 7.1 Albumin 3.4 Globulin 3.7 Albumin/Globulin Ratio 0.9 Urine Color Urine Clarity Urine pH Ur Specific [place] Urine Protein Urine Glucose (UA) Urine Ketones Urine Occult Blood Urine Nitrite Urine Bilirubin Urine Urobilinogen Ur Leukocyte Esterase Urine RBC Urine WBC Ur Squamous Epith Cells Ur Renal Epithelial Cell Urine Bacteria Urine Mucus 11/02/20 03:36 WBC RBC Hgb Hct MCV MCH MCHC RDW Std Deviation RDW Coeff of [place] Plt Count MPV Immature Gran % (Auto) Neut % (Auto) Lymph % (Auto) [place] % (Auto) Eos % (Auto) Baso % (Auto) Absolute Neuts (auto) Absolute Lymphs (auto) Nucleated RBC % Sodium Potassium Chloride Carbon Dioxide Anion Gap BUN Creatinine Estim Creat Clear Calc Est GFR (MDRD) Af Amer Est GFR (MDRD) Non-Af BUN/Creatinine Ratio Glucose Calcium Total Bilirubin AST ALT Alkaline Phosphatase Troponin I B-Natriuretic Peptide Total Protein Albumin Globulin Albumin/Globulin Ratio Urine Color Yellow Urine Clarity Clear Urine pH 8.0 Ur Specific [place] 1.015 Urine Protein 15 H Urine Glucose (UA) Normal Urine Ketones 5 H Urine Occult Blood 10 H Urine Nitrite Negative Urine Bilirubin Negative Urine Urobilinogen 1 H Ur Leukocyte Esterase Negative Urine RBC 0 SEEN Urine WBC 0 SEEN Ur Squamous Epith Cells 0 SEEN Ur Renal Epithelial Cell 0-5 SEEN Urine Bacteria 0 SEEN Urine Mucus 1+ Radiography Diagnostic Testing: Radiology Impression Brain CT 11/02/20 02:49 IMPRESSION: 1. No acute intracranial abnormality. There has been no change from the reference exam. 2. Stable remote bilateral parietal occipital infarct. Individualized dose optimization techniques were used for this CT. at 0335 Reported and signed by: Garrison Yoo MD Electronically Signed: Garrison Yoo MD at 3:34 EDT Tel , Service support , Chest X-Ray 11/02/20 03:11 IMPRESSION: No radiographic evidence of acute cardiopulmonary disease. at 0340 Reported and signed by: Garrison Yoo MD Electronically Signed: Garrison Yoo MD at 3:39 EDT Tel , Service support , EKG Initial EKG: Comments: Rate of 90 bpm and normal sinus rhythm. Normal intervals. Normal axis. No significant ST elevations or depressions. No T wave abnormalities. Discharge Plan Dx/Rx/DC Orders Clinical Impression: Acute and chronic respiratory failure, Altered mental status Disposition Disposition: Acute Care Hospital [facility] Discharge Date/Time: 11/02/20 06:31
[2020-11-02 03:06] LABS: Absolute Lymphocyte Count 1.45 X10^3/uL (0.83-4.51); Absolute Neutrophil Count 9.2 X10^3/uL (2.0-7.7); Basophil# 0.04 X10^3/uL; Basophil% 0.3 % (0-1); Eosinophil# 0.11 X10^3/uL; Hematocrit 38.3 % (37-47); Hemoglobin 11.1 g/dL (12.0-15.0); Lymphocyte # 1.45 X10^3/ul (0.83-4.51); Lymphocyte % 12.5 % (19-41); Mean Corpuscular Hgb 28.7 pg (27.0-32.0); Mean Platelet Vol. 10.1 fl (6.2-12.0); Monocyte# 0.71 X10^3/uL; Monocyte% 6.1 % (0-10); NRBC Flagged by Analyzer 0 % (0-5); Neutrophil # 9.15 X10^3/uL (2.7-7.7); Neutrophil % 79.1 % (47-70); Platelet Count 177 K/mm3 (150-450); RBC Distribution Width CV 13.2 % (11.6-14.6); Red Blood Count 3.87 M/mm3 (4.2-5.4); White Blood Count 11.6 K/mm3 (4.4-11.0)
--- NOTE | 2020-11-02 03:11 | RAD_ITS ---
EXAM: XR CHEST, 1 VIEW : 1955 CLINICAL INDICATION: Hypoxia TECHNIQUE: Frontal view of the chest. This report was created using [employer] report generation technology. COMPARISON: 10/25/2019 FINDINGS: LUNGS AND PLEURAL SPACES: Unremarkable. No consolidation or edema. No pneumothorax. No effusion. HEART: Unremarkable. Cardiac silhouette not enlarged. MEDIASTINUM: Central airways and mediastinal contour are unremarkable. BONES/JOINTS: Unremarkable. SOFT TISSUES: Unremarkable. RAD/Chest 1 View (Portable) IMPRESSION: No radiographic evidence of acute cardiopulmonary disease. at 0340 Reported and signed by: Garrison Yoo MD Electronically Signed: Garrison Yoo MD at 3:39 EDT Tel , Service support ,
[2020-11-02 03:23] LABS: BNP,B-Type NATRIURETIC PEPTIDE 170.7 pg/mL (0-100)
[2020-11-02 03:24] LABS: ALB/GLOB Ratio 0.9 RATIO (0.9-2.4); AST(SGOT) 21 U/L (15-37); Alanine Aminotransfer ALT/SGPT 17 U/L (13-56); Albumin, Serum 3.4 g/dL (3.2-5.0); Alkaline Phosphatase 87 U/L (45-117); Anion Gap 2 (5-15); BUN 13 mg/dL (7-18); BUN/Creat Ratio 16.3 RATIO (10-20); Calcium,Total 8.7 mg/dL (8.5-10.1); Chloride 100 mmol/L (98-107); EST Glomerular Filtration Rate 77 mL/min (>60); Est Glom Filt Rate - Afr Amer 93 mL/min (>60); Estimated Creatinine Clearance 57.22 ml/min; Globulin 3.7 g/dL (2.2-4.2); Glucose 108 mg/dL (74-106); Protein, Total 7.1 g/dL (6.4-8.2); Sodium Level 142 mmol/L (136-145)
[2020-11-02 03:40] LABS: Bacteria 0 SEEN /hpf (None Seen); Red Blood Cells-Urine 0 SEEN /hpf (0-5); Squamous Epithelial Cells - UA 0 SEEN /hpf (5-10); White Blood Cells 0 SEEN /hpf (0-5)
[2020-11-02 03:41] LABS: Color, Urine Yellow (Yellow); Glucose, Dipstick Normal (Normal); Ketone-Dipstick 5 mg/dl (Negative); Leukocyte Esterase-Dipstick Negative /ul (Negative); Nitrite-Dipstick Negative (Negative); Occult Blood-Urine 10 /ul (Negative); Protein-Dipstick 15 mg/dl (Negative); Specific Gravity, Urine 1.015 (1.002-1.030); Urine Bilirubin Dipstick Negative (Negative); Urine Clarity Clear (Clear); Urine Urobilinogen 1 mg/dl (Normal)
[2020-11-02 03:52] LABS: Mucous, Urine 1+ /hpf (<or=2+); Renal Epithelial Cells 0-5 SEEN /hpf (0-5)
[2020-11-02] MEDS: Ipratropium/Albuterol Sulfate 3 ML AMPUL.NEB INHALATION (05:21)
--- NOTE | 2020-11-02 05:55 | CT_ITS ---
STUDY: CTA CHEST REASON FOR EXAM: Female, 65 years old patient with hypoxia. RADIATION DOSAGE (If Supplied By Facility): CTDIvol = ( 9.49 ) mGy, DLP = ( 344.37 ) mGycm TECHNIQUE: The examination was performed with the intravenous administration of 75 mL of Isovue 370. Post-processing of the angiographic images was performed, with multiplanar reformation and 3D reconstruction. Individualized dose optimization techniques were used for this CT. COMPARISON: CT of the chest dated 09/14/2018. FINDINGS: There is limited enhancement of the main pulmonary artery and right and left pulmonary arteries. There is limited enhancement of the bilateral peripheral pulmonary arteries. There is no demonstrated pulmonary embolism. There is prominence of the main pulmonary arteries with peripheral pulmonary vascular congestion. Normal thoracic aorta and visualized great vessels. There is no demonstrated aortic dissection. There is borderline cardiomegaly. Normal mediastinum. Normal hilar regions. Normal visualized trachea and bronchi. The lungs are well expanded. Normal pulmonary parenchyma. Normal pleura. Normal chest wall structures. Motion artifact mimics a sternal fracture. There is normal thoracic kyphosis. Thoracic vertebral bodies have normal height and alignment. Normal visualized upper abdomen. CT/CTA Chest W/WO Contrast IMPRESSION: 1. No CTA demonstrated pulmonary embolism or arterial dissection. 2. Borderline cardiomegaly and mild pulmonary mass or congestion. Electronically Signed: Lisa Amador MD at 7:26 EDT , Service support ,
--- NOTE | 2020-11-02 06:11 | HP.PCM.HOS_ITS ---
[facility] General Date of Admission: 11/02/20 Chief Complaint: Fall HPI Narrative MARCO MAY, is a 65 F with a significant history of a CVA; anxiety and dep ression; obstructive sleep apnea; secondary pulmonary arterial hypertension who presented to emergency department with a fall. Reportedly in the last 2 to 3 days patient has been confused. On the day of presentation she tripped over her dog and fell backwards hitting the back of her head and developing a hematoma at the back of her head. Patient is on 2 L of nasal cannula oxygen at home. Repor tedly her oxygen saturation at emergency department was 55% on room air. Her oxygen saturation was appropriate on a 2 L at rest while at the emergency department. However with ambulation her oxygen saturation dropped to around 85%. Emergency department nurses report the patient was acting confused at the emergency department. [facility] Medical History Acid-base disorder, mixed Alcohol abuse Anxiety Anxiety and depression Chronic anemia Chronic respiratory insufficiency Chronic systolic (congestive) heart failure CO2 narcosis COPD (chronic obstructive pulmonary disease) Daytime hypersomnia Essential (primary) hypertension GERD (gastroesophageal reflux disease) Hemorrhagic cerebrovascular accident (CVA) (02/09/17) History of DVT of lower extremity (02/11/17) History of non-ST elevation myocardial infarction (NSTEMI) (02/03/17) Hyperlipidemia Hypotension arterial Insomnia Insomnia Ischemic cerebrovascular accident (CVA) (02/06/17) Non-ischemic cardiomyopathy Non-rheumatic mitral regurgitation TIO (obstructive sleep apnea) Secondary pulmonary arterial hypertension Stroke TIA (transient ischemic attack) (10/25/19) Home Medications multivitamin with minerals 1 tab PO DAILY 09/14/18 [History Last Taken 10/25/19] ipratropium-albuterol 3 ml INHALATION 4X/DAY 11/05/18 [History Last Taken 10/25/19] acetaminophen 1,000 mg PO Q6H PRN PRN tab 11/15/18 [Rx Last Taken Unknown] albuterol sulfate 90 mcg/actuation aerosol inhaler 1 puff INHALATION Q4H PRN PRN #1 inhaler 06/06/19 [Rx Last Taken Unknown] melatonin 3 mg PO QHS PRN PRN #60 tab 10/26/19 [Rx Last Taken Unknown] aspirin 81 mg tablet,delayed release 81 mg PO DAILY #90 tab 01/03/20 [Rx Last Taken Unknown] folic acid 1 mg tablet 1 mg PO DAILY #30 tab 03/01/20 [Rx Last Taken Unknown] hydroxyzine HCl 25 mg tablet 25 mg PO DAILY PRN #30 tab 03/01/20 [Rx Last Taken Unknown] pantoprazole 40 mg tablet,delayed release 40 mg PO QAM #90 tab 03/01/20 [Rx Last Taken Unknown] rosuvastatin 20 mg tablet 20 mg PO DAILY #90 tab 03/01/20 [Rx Last Taken Unknown] spironolactone 25 mg tablet 12.5 mg PO DAILY #90 tab 03/01/20 [Rx Last Taken Unknown] budesonide-formoterol HFA 160 mcg-4.5 mcg/actuation aerosol inhaler 2 puff INHALATION BID #10.2 g 05/29/20 [Rx Last Taken Unknown] tiotropium bromide 2.5 mcg/actuation mist for inhalation 2 puff INHALATION QDAY #4 g 05/29/20 [Rx Last Taken Unknown] carvedilol 12.5 mg tablet 12.5 mg PO BID #180 tab 07/01/20 [Rx Last Taken Unknown] ropinirole 0.25 mg tablet 0.5 mg PO QHS #60 tab 07/01/20 [Rx Last Taken Unknown] duloxetine 60 mg capsule,delayed release 60 mg PO QPM #90 cap 07/11/20 [Rx Last Taken Unknown] Allergy/AdvReac Type Severity Reaction Status Date / Time tetanus and diphtheria Allergy Hives Verified 11/02/20 02:33 toxoids [tetanus & diphtheria toxoids] Family History Sister Cancer lung Father Cancer lung Mother Cancer lung Surgical History H/O: section History of bilateral cataract extraction History of cholecystectomy History of lumpectomy Hx of appendectomy Social History Smoking Status: Former smoker how long ago did patient quit smokin, 1pk/day second hand exposure: Yes alcohol intake: former substance use type: does not use what type of physical activity do you participate in: walking frequency: daily ROS Constitutional Constitutional: Denies anorexia or change in weight Eyes Eyes: Denies blurry vision or change in eye color ENT HEENT: Denies abnormal hearing or dysphagia Cardiovascular Cardiovascular: Denies chest pain or claudication Respiratory/Chest Respiratory/Chest: Denies cough, dyspnea or excessive phlegm production Gastrointestinal Gastrointestinal: Denies abdominal pain or coffee ground emesis Genitourinary Genitourinary: Denies burning urination or difficulty urinating Musculoskeletal Musculoskeletal: Denies arthralgias or back pain Neurologic Neurologic: Reports confusion; Denies abnormal gait or abnormal speech Psychiatric Psychiatric: Denies anxiety or depression Endocrine Endocrinology: Denies change in body appearance or cold intolerance Hematologic/Lymphatic Hematologic/Lymphatic: Denies anemia or easy bleeding Vital Signs Vital Signs Vital Signs: 11/02/20 02:30 11/02/20 02:33 11/02/20 02:40 Temperature 97.1 F L Temperature Source Temporal Pulse Rate 92 Respiratory Rate 22 H Respiratory Pattern Tachypnea Blood Pressure 152/96 H Blood Pressure Mean 114 Pulse Ox 55 93 Oxygen Delivery Method Room Air Nasal Cannula Oxygen Flow Rate (L/min) 3 11/02/20 03:09 11/02/20 03:30 11/02/20 04:12 Temperature 98.6 F Temperature Source Oral Pulse Rate 86 Respiratory Rate 20 H Respiratory Pattern Blood Pressure 112/60 95/76 Blood Pressure Mean 77 82 Pulse Ox 95 96 Oxygen Delivery Method Nasal Cannula Nasal Cannula Oxygen Flow Rate (L/min) 3 2 11/02/20 04:46 11/02/20 05:23 Temperature Temperature Source Pulse Rate 87 90 Respiratory Rate 19 H 18 Respiratory Pattern Blood Pressure 109/86 H Blood Pressure Mean 93 Pulse Ox 94 Oxygen Delivery Method Nasal Cannula Oxygen Flow Rate (L/min) 2 Physical Exam Const alert and oriented x3 Constitutional Narrative: Patient knows her name; she knows she is at the [facility]. She knows the year but not the month: It November 02.. However she thought it was October. General Appearance: cooperative HEENT normocephalic HEENT Narrative: Hematoma at the back of the head. Eyes PERRL and EOMs intact bilaterally Neck no lymphadenopathy and supple Resp normal respiratory effort and no retractions Auscultation: diminished lung sounds Cardio regular rate, S1 normal heart sound and S2 normal heart sound Neuro Neuro Narrative: Patient was trying to put the pulse oximetry in her bag while at the ED Lab / Micro Data Result Diagrams: 11/02/20 02:55 11/02/20 02:55 Labs: Laboratory Results - last 24 hr 11/02/20 11/02/20 11/02/20 02:55 02:55 02:55 WBC 11.6 H RBC 3.87 L Hgb 11.1 L Hct 38.3 MCV 99.0 MCH 28.7 MCHC 29.0 L RDW Std Deviation 48.0 H RDW Coeff of Deonte 13.2 Plt Count 177 MPV 10.1 Immature Gran % (Auto) 1.000 H Neut % (Auto) 79.1 H Lymph % (Auto) 12.5 L [place] % (Auto) 6.1 Eos % (Auto) 1.0 Baso % (Auto) 0.3 Absolute Neuts (auto) 9.2 H Absolute Lymphs (auto) 1.45 Nucleated RBC % 0 Sodium 142 Potassium 4.0 Chloride 100 Carbon Dioxide 40.0 H Anion Gap 2 L BUN 13 Creatinine 0.80 Estim Creat Clear Calc 57.22 Est GFR (MDRD) Af Amer 93 Est GFR (MDRD) Non-Af 77 BUN/Creatinine Ratio 16.3 Glucose 108 H Calcium 8.7 Total Bilirubin 0.50 AST 21 ALT 17 Alkaline Phosphatase 87 Troponin I < 0.015 B-Natriuretic Peptide 170.7 H Total Protein 7.1 Albumin 3.4 Globulin 3.7 Albumin/Globulin Ratio 0.9 Urine Color Urine Clarity Urine pH Ur Specific [place] Urine Protein Urine Glucose (UA) Urine Ketones Urine Occult Blood Urine Nitrite Urine Bilirubin Urine Urobilinogen Ur Leukocyte Esterase Urine RBC Urine WBC Ur Squamous Epith Cells Ur Renal Epithelial Cell Urine Bacteria Urine Mucus 11/02/20 03:36 WBC RBC Hgb Hct MCV MCH MCHC RDW Std Deviation RDW Coeff of [place] Plt Count MPV Immature Gran % (Auto) Neut % (Auto) Lymph % (Auto) [place] % (Auto) Eos % (Auto) Baso % (Auto) Absolute Neuts (auto) Absolute Lymphs (auto) Nucleated RBC % Sodium Potassium Chloride Carbon Dioxide Anion Gap BUN Creatinine Estim Creat Clear Calc Est GFR (MDRD) Af Amer Est GFR (MDRD) Non-Af BUN/Creatinine Ratio Glucose Calcium Total Bilirubin AST ALT Alkaline Phosphatase Troponin I B-Natriuretic Peptide Total Protein Albumin Globulin Albumin/Globulin Ratio Urine Color Yellow Urine Clarity Clear Urine pH 8.0 Ur Specific [place] 1.015 Urine Protein 15 H Urine Glucose (UA) Normal Urine Ketones 5 H Urine Occult Blood 10 H Urine Nitrite Negative Urine Bilirubin Negative Urine Urobilinogen 1 H Ur Leukocyte Esterase Negative Urine RBC 0 SEEN Urine WBC 0 SEEN Ur Squamous Epith Cells 0 SEEN Ur Renal Epithelial Cell 0-5 SEEN Urine Bacteria 0 SEEN Urine Mucus 1+ Micro: Microbiology 11/02/20 03:24 SARS-CoV-2 Antigen (Rapid) - Final Nasal Secretion Radiology Impression Brain CT 11/02/20 02:49 IMPRESSION: 1. No acute intracranial abnormality. There has been no change from the reference exam. 2. Stable remote bilateral parietal occipital infarct. Individualized dose optimization techniques were used for this CT. at 0335 Reported and signed by: Garrison Yoo MD Electronically Signed: Garrison Yoo MD at 3:34 EDT Tel , Service support , Chest X-Ray 11/02/20 03:11 IMPRESSION: No radiographic evidence of acute cardiopulmonary disease. at 0340 Reported and signed by: Garrison Yoo MD Electronically Signed: Garrison Yoo MD at 3:39 EDT Tel , Service support , Assessment & Plan Assessment/Plan (1) Acute encephalopathy: Status: Acute Code(s): G93.40 - Encephalopathy, unspecified (2) Respiratory insufficiency: Status: Acute Code(s): R06.89 - Other abnormalities of breathing (3) COPD (chronic obstructive pulmonary disease): Status: Chronic Code(s): J44.9 - Chronic obstructive pulmonary disease, unspecified Qualifiers: COPD type: unspecified COPD Qualified Code(s): J44.9 - Chronic obstructive pulmonary disease, unspecified (4) Fall: Status: Acute Code(s): W19.XXXA - Unspecified fall, initial encounter Qualifiers: Encounter type: initial encounter Qualified Code(s): W19.XXXA - Unspecified fall, initial encounter (5) Head concussion: Status: Acute Code(s): S06.0X9A - Concussion with loss of consciousness of unspecified duration, initial encounter Plan: CT of head with no acute intracranial abnormality. Stable remote bilateral parieto-occipital infarcts. R ice to head. Chest x-ray independently reviewed showed no acute abnormality. Check vitamin D; vitamin B12 and ammonia level. Check TSH Oxygen to keep oxygen saturation to at least 92%. Probably patient will need to increase her oxygen flow with ambulation. Discussed with ED will get CT scan of chest. Respiratory pathogen panel. CPAP nightly continued Visit Charges Inpatient E&M: 08319 Init Hosp L3
[2020-11-02 08:51] LABS: Thyroid Stim Hormone (TSH) 1.41 uIU/mL (0.358-3.74)
[2020-11-02] MEDS: Acetaminophen 325 MG Tablet 650 MG PO (09:01)
[2020-11-02 09:25] LABS: Base Excess 13 mmol/L (-2 to +2); Bicarbonate 39.7 mmol/L (22-26); Blood Gas Specimen Type ART; O2 Delivery Device Cannula; PO2 74 mmHG (75-100); SITE R Radial; SO2 91 % (95-99); Total Carbon Dioxide 42 mmol/L; pCO2 84.3 mmHg (35-45); pH 7.28 (7.35-7.45)
--- NOTE | 2020-11-02 10:15 | CPS ---
[facility] CRITICAL VALUES CALLED TO .
[2020-11-02] MEDS: 0.9% Saline Lock 10 ML Syringe IV ×2 (10:24→11:12)
[2020-11-02] MEDS: LORazepam 2 MG/ML Syringe 1 MG IV ×2 (10:24→11:12)
--- NOTE | 2020-11-02 11:00 | CASEMGMT ---
SOCIAL WORK Attempted to complete assessment with patient. Patient confused and uncooperative with R.T. Unable to complete assessment at this time. CM notified. Kaley Morales, [employer], DIRECTOR OF DIRECT MARKETING
--- NOTE | 2020-11-02 12:03 | NURSING ---
significant other at bedside, reports that pt hasn't consumed ETOH in over 15 years.
[2020-11-02] MEDS: Haloperidol Lactate 5 MG/ML Vial 2 MG IM (12:33)
[2020-11-02 13:41] LABS: Base Excess 12 mmol/L (-2 to +2); Bicarbonate 38.1 mmol/L (22-26); Blood Gas Specimen Type ART; FI02 35; O2 Delivery Device BiPAP; PEEP 8; PO2 81 mmHG (75-100); RR 12; SITE R Radial; SO2 94 % (95-99); Total Carbon Dioxide 40 mmol/L; pCO2 75.7 mmHg (35-45); pH 7.31 (7.35-7.45)
--- NOTE | 2020-11-02 14:12 | CPS ---
critical values sent to .
--- NOTE | 2020-11-02 15:04 | CASEMGMT ---
RN CM NOTE: Pt confused and currently on BIPAP. Initial RN CM assessment deferred at this time. CM to attempt assessment at a later time. Korin BSN RN CM
--- NOTE | 2020-11-02 17:13 | NURSING ---
cooperative to get oob to use bsc- however needs reminding to leave BIPAP mask on and not mess/fidget with it. bed exit back on.
--- NOTE | 2020-11-02 20:18 | CPS ---
IPAP increased to help with pt.'s ventilatory status.
[2020-11-02] MEDS: MELATONIN 3 MG TABLET PO (21:30)
[2020-11-03] VITALS (17 sets, daily range): BP systolic 108–131; BP diastolic 52–67; PULSE 76–96; RESP 12–22; TEMP 36.4–36.7; O2SAT 95–100
--- NOTE | 2020-11-03 01:50 | CPS ---
Noted that RN put Duo-Derm on pt.'s nose to keep integrity of skin
[2020-11-03 05:40] LABS: Absolute Lymphocyte Count 1.19 X10^3/uL (0.83-4.51); Absolute Neutrophil Count 4.8 X10^3/uL (2.0-7.7); Basophil# 0.03 X10^3/uL; Basophil% 0.4 % (0-1); Eosinophil# 0.17 X10^3/uL; Eosinophils% 2.5 % (0-5); Hematocrit 35.8 % (37-47); Hemoglobin 10.5 g/dL (12.0-15.0); Lymphocyte # 1.19 X10^3/ul (0.83-4.51); Lymphocyte % 17.4 % (19-41); Mean Corp Hgb Conc 29.3 g/dL (32-36); Mean Corpuscular Volume 95.5 fL (81-99); Mean Platelet Vol. 10.3 fl (6.2-12.0); Monocyte# 0.59 X10^3/uL; Monocyte% 8.7 % (0-10); NRBC Flagged by Analyzer 0 % (0-5); Neutrophil # 4.81 X10^3/uL (2.7-7.7); Neutrophil % 70.6 % (47-70); Platelet Count 159 K/mm3 (150-450); RBC Distribution Width CV 13.6 % (11.6-14.6); RBC Distribution Width SD 47.6 fl (35.1-43.9); Red Blood Count 3.75 M/mm3 (4.2-5.4); White Blood Count 6.8 K/mm3 (4.4-11.0)
[2020-11-03 06:00] LABS: Anion Gap 3 (5-15); BUN 12 mg/dL (7-18); BUN/Creat Ratio 18.8 RATIO (10-20); Chloride 101 mmol/L (98-107); Creatinine, Serum 0.64 mg/dL (0.55-1.02); EST Glomerular Filtration Rate 99 mL/min (>60); Est Glom Filt Rate - Afr Amer 120 mL/min (>60); Estimated Creatinine Clearance 43.77 ml/min; Glucose 87 mg/dL (74-106); Potassium 3.6 mmol/L (3.5-5.1); Sodium Level 139 mmol/L (136-145)
[2020-11-03] MEDS: Ipratropium/Albuterol Sulfate 3 ML AMPUL.NEB INHALATION ×3 (09:08→20:13)
[2020-11-03] MEDS: predniSONE 20 MG Tablet 40 MG PO (09:39)
--- NOTE | 2020-11-03 12:16 | NURSING ---
pt seeing snakes on ceiling bipap reapplied
--- NOTE | 2020-11-03 13:25 | PCM.DC ---
Discharge Instructions Outpatient Procedure Reason For Visit: ACUTE METABOLLIC ENCEPHALOPATHY Diet Discharge Diet: No restrictions Activity Discharge Activity: Return to Normal Activity Follow Up Care Please Follow Up With: Primary care provider When: Within the next two weeks. Test Results: Your carbon dioxide level from admission was elevated at 75.7mmHg, which is more than likely the cause of your recent confusion. To bring down this carbon dioxide you must be compliant with your BiPAP machine at home. Discharge Plan Admission Admit Date/Time: 11/02/20 05:55 Primary Reason for Your Visit: Fall and COPD exacerbation. Attending Provider: Nelson Kelsey Primary Care Provider: Maryam Pineda Instructions Patient Instructions: Care for COPD, COPD: Using Inhalers Discharge Orders/Prescriptions Prescriptions: No Action albuterol sulfate 90 mcg/actuation HFA aerosol inhaler 1 puff INHALATION Q4H PRN PRN (Reason: Sob &/Or Wheezing) Qty: 1 RF: 0 budesonide-formoterol [Symbicort] 160-4.5 mcg/actuation HFA aerosol inhaler 2 puff INHALATION BID Qty: 10.2 RF: 6 Spiriva Respimat 2.5 mcg/actuation mist 2 puff INHALATION QDAY Qty: 4 RF: 6 multivitamin with minerals 1 EACH tablet 1 tab PO DAILY RF: 0 ipratropium-albuterol 3 ML solution for nebulization 3 ml inhalation 4X/DAY RF: 0 acetaminophen 500 MG tablet 1,000 mg PO Q6H PRN PRN (Reason: Mild Pain (1-3/10)) RF: 0 melatonin 3 MG tablet 3 mg PO QHS PRN PRN (Reason: Insomnia) Qty: 60 RF: 0 aspirin 81 mg tablet,delayed release (DR/EC) 81 mg PO DAILY Qty: 90 RF: 3 folic acid 1 mg tablet 1 mg PO DAILY Qty: 30 RF: 11 hydroxyzine HCl 25 mg tablet 25 mg PO DAILY PRN (Reason: anxiety/Panic attacks) Qty: 30 RF: 1 pantoprazole 40 mg tablet,delayed release (DR/EC) 40 mg PO QAM Qty: 90 RF: 3 rosuvastatin 20 mg tablet 20 mg PO DAILY Qty: 90 RF: 3 spironolactone 25 mg tablet 12.5 mg PO DAILY Qty: 90 RF: 3 carvedilol 12.5 mg tablet 12.5 mg PO BID Qty: 180 RF: 3 ropinirole [Requip] 0.25 mg tablet 0.5 mg PO QHS Qty: 60 RF: 1 duloxetine 60 mg capsule,delayed release(DR/EC) 60 mg PO QPM Qty: 90 RF: 2 Referrals: Maryam Pineda MD [Primary Care Provider] -
--- NOTE | 2020-11-03 13:45 | PN.HOSP_ITS ---
Documented by User: Severo ROSENTHAL 11/03/20 14:05 Subjective Subjective: Patient is a pleasant 65-year-old female, alert and oriented x3. Patient is alert and oriented appropriately however she is having mild hallucinations consisting of seeing worms in the bed and spots on the ceiling. This does not appear to be a causing the patient any acute distress and she understands the thing she is seeing are not there. Objective Data Objective Data Vital Signs: Vital Signs Temp Pulse Resp BP Pulse Ox 98.0 F 84 18 131/67 H 95 11/03/20 13:42 11/03/20 13:42 11/03/20 13:42 11/03/20 13:42 11/03/20 13:42 Oxygen Flow Rate (L/min) 3 Oxygen Delivery Method Bi-pap Weight: 162 lb 0.636 oz Body Mass Index (BMI) 29.6 Finger Stick Blood Glucose 94 Intake & Output: Intake and Output for Last 24 Hours 11/01/20 11/02/20 11/03/20 23:59 23:59 23:59 Intake Total 250 / 250 450 / 450 Output Total 1400 / 1400 250 / 250 Balance -1150 / -1150 200 / 200 Lab / Micro Data Result Diagrams: 11/03/20 05:35 11/03/20 05:35 Labs: Laboratory Results - last 24 hr 11/03/20 11/03/20 05:35 05:35 WBC 6.8 RBC 3.75 L Hgb 10.5 L Hct 35.8 L MCV 95.5 MCH 28.0 MCHC 29.3 L RDW Std Deviation 47.6 H RDW Coeff of Deonte 13.6 Plt Count 159 MPV 10.3 Immature Gran % (Auto) 0.400 Neut % (Auto) 70.6 H Lymph % (Auto) 17.4 L [place] % (Auto) 8.7 Eos % (Auto) 2.5 Baso % (Auto) 0.4 Absolute Neuts (auto) 4.8 Absolute Lymphs (auto) 1.19 Nucleated RBC % 0 Sodium 139 Potassium 3.6 Chloride 101 Carbon Dioxide 35.0 H Anion Gap 3 L BUN 12 Creatinine 0.64 Estim Creat Clear Calc 43.77 Est GFR (MDRD) Af Amer 120 Est GFR (MDRD) Non-Af 99 BUN/Creatinine Ratio 18.8 Glucose 87 Calcium 9.0 Micro: Microbiology 11/02/20 07:10 Mucosa - Nasopharyngeal Respiratory Panel (PCR) - Final 11/02/20 03:24 Nasal Secretion SARS-CoV-2 Antigen (Rapid) - Final Physical Exam Narrative See subjective. Const alert and oriented x3 Constitutional Narrative: Seeing hallucinations. HEENT normocephalic and head/scalp atraumatic Eyes PERRL and EOMs intact bilaterally Neck full ROM, nuchal rigidity and no JVD Lymph Lymphatic: no lymphadenopathy noted and no lymphedema noted Chest inspection of chest normal and palpation of chest normal Resp normal respiratory effort, normal air movement and no use of accessory muscles Cardio regular rate, regular rhythm, S1 normal heart sound and S2 normal heart sound GI normal to inspection, nondistended, normoactive bowel sounds, soft to palpation and non-tender no CVA tenderness and external exam normal Back/Spine no CVA tenderness and normal ROM Extremity normal to inspection, full ROM and no joint enlargement Skin no rashes or lesions noted and no wounds Neuro CN's II-XII intact bilaterally Psych Thought Content: hallucination(s) Positive for visual (Reports to seeing spots on the ceiling and worms in her bed.) Assessment & Plan Assessment/Plan (1) Acute encephalopathy: Status: Acute Code(s): G93.40 - Encephalopathy, unspecified Plan: Patient is a 65-year-old female who presented to the ED from home after suffering a mechanical fall after tripping over her dog, and was found to be hypoxic in the emergency department. Patient was admitted for fall and hypoxia in the setting of a possible COPD exacerbation. ABG has remained elevated at 84.3 at admission and 75.7 mmHg this morning, this reading is most likely related to her COPD. Patient is alert and oriented however has been experien cing hallucinations that consist of spots on the wall and worms in her bed. Patient is adamant that she wants to leave, however I believe this is not in her best interest as her CO2 level is still not resolved and I believe her not to be mentating properly. Given that the patient is not mentating properly, I believe she is unable to sign an AMA form for herself. Patient's was contacted at home and he was in agreement that he would not feel safe if she return home and he would like her to remain admitted in the hospital overnight. Patient's agreeable to return to hospital later on today to try and plead with to remain admitted. Patient is agreeable to stay long enough to allow her to talk over this decision with her. 1) Mechanical fall Patient suffered a mechanical fall after tripping over her dog at home. Physical exam did not demonstrate any head trauma. Brain CT demonstrated no acute intracranial abnormality, however did reveal a stable remote bilateral parietal occipital infarct. Plan; continue Tylenol 6 and 50 mg p.o. every 6 as needed. 2) hypoxic respiratory in sufficiency in the setting of acute on chronic COPD. Chest x-ray demonstrates no acute cardiopulmonary pathology. Serial ABGs have revealed an elevated PCO2 of 75 mmHg. Vital signs stable, oxygen saturation 95% on 3 L of oxygen via nasal cannula. Plan; continue BiPAP, continue DuoNeb and prednisone. 3) Acute encephalopathy Most likely related to #2. Imaging and physical exam revealed no acute head or neck trauma. Plan; as above. Patient seen by Severo Klein PA-C, under the supervision of Dr. Ballesteros. (2) Respiratory insufficiency: Status: Acute Code(s): R06.89 - Other abnormalities of breathing (3) COPD (chronic obstructive pulmonary disease): Status: Chronic Code(s): J44.9 - Chronic obstructive pulmonary disease, unspecified Qualifiers: COPD type: unspecified COPD Qualified Code(s): J44.9 - Chronic obstructive pulmonary disease, unspecified (4) Head concussion: Status: Acute Code(s): S06.0X9A - Concussion with loss of consciousness of unspecified duration, initial encounter (5) Fall: Status: Acute Code(s): W19.XXXA - Unspecified fall, initial encounter Qualifiers: Encounter type: initial encounter Qualified Code(s): W19.XXXA - Unspecified fall, initial encounter (6) Hypoxia: Status: Acute Code(s): R09.02 - Hypoxemia Documented by User: Dr. Nelson Kelsey MD 11/03/20 16:00 Objective Data Lab / Micro Data Result Diagrams: 11/03/20 05:35 11/03/20 05:35 Addendum Addendum: Dr. Kelsey I personally examined the patient and reviewed the chart. I agree with the above. Six 5-year-old female who is repeatedly come to the hospital secondary to acute hypercapnic and hypoxic respiratory failure. On admission she was found to have a PCO2 of 84.3. With initiation of BiPAP that did improve later yesterday afternoon to 75.7. This was likely due to a COPD exacerbation therefore she will be started on prednisone 40 mg daily. She has expressed desires to leave today I discussed with her that that would be fairly high risk given her recent recovery from her hypercapnic respiratory failure. Hopefully her will be able to come in and talk her into staying for 1 more day to continue with nocturnal BiPAP and prednisone therapy. Visit Charges Inpatient E&M: 73931 Subs Hosp L2
--- NOTE | 2020-11-03 18:44 | NURSING ---
pt requested to have bag from closet. pt looking for folded up napkin in pocket. asked this nurse to assist with locating it. Inside the napkin pt had 1 pill cut in half. This nurse educated pt that she is unable to take medication that the doctor has not ordered. pt became tearful and said she needed it to sleep. told pt would speak with doctor about request. This nurse locked pill in room medication drawer notified process control operator. Notified doctor pt requesting something for sleep that melatonin did not work last night. awaiting to return call to update medication list.
--- NOTE | 2020-11-03 20:04 | NURSING ---
This RN spoke with significant other Oscar via phone call, this RN reviewed home med list with him and updated list appropriately. When MD calls at will notify. Primary RN aware.
[2020-11-03] MEDS: DULoxetine Hcl 60 MG Capsule PO (20:44)
[2020-11-03] MEDS: busPIRone 5 MG Tablet 7.5 MG PO (20:45)
[2020-11-03] MEDS: Pramipexole Di-HCl 0.25 MG Tablet PO (20:45)
[2020-11-03] MEDS: Carvedilol 12.5 MG Tablet PO (20:46)
[2020-11-03] MEDS: traZODone 100 MG Tablet PO (20:46)
[2020-11-04] VITALS (13 sets, daily range): BP systolic 102–124; BP diastolic 47–73; PULSE 64–88; RESP 12–20; TEMP 36.7–36.8; O2SAT 85–99
[2020-11-04] MEDS: LORazepam 2 MG/ML Syringe 1 MG IV (00:27)
--- NOTE | 2020-11-04 00:56 | NURSING ---
RT called and notified that patient was taken off the BIPAP, patient remains cofused, seeing things, yet awake and alert. 02 at 2L reapplied. During this time patient pulled out IV, IV out at this time. Patient assisted to the BSC, very unsteady. Primary RN and this RN assisted patient back into bed. Bed exit set. Will continue to monitor.
--- NOTE | 2020-11-04 01:35 | NURSING ---
Patient continues to get out of bed, patient placed in Vanesa chair and sat out at nurses station with staff at this time, portable 02 applied. Patient has mask on. Sorority Mother aware, will continue to montior.
--- NOTE | 2020-11-04 02:25 | CPS ---
Nursing had been trying to keep bipap on pt. Pt does not want to keep bipap on. Pt has not slept in several hours and after 0 became more confused and disagreeing with the bipap. RT and RN agreed to take off for sake of pt, due to agitation.
[2020-11-04 05:42] LABS: Absolute Lymphocyte Count 1.52 X10^3/uL (0.83-4.51); Absolute Neutrophil Count 6.6 X10^3/uL (2.0-7.7); Basophil# 0.02 X10^3/uL; Basophil% 0.2 % (0-1); Eosinophil# 0.02 X10^3/uL; Eosinophils% 0.2 % (0-5); Hematocrit 41.4 % (37-47); Hemoglobin 12.1 g/dL (12.0-15.0); Lymphocyte # 1.52 X10^3/ul (0.83-4.51); Lymphocyte % 16.5 % (19-41); Mean Corp Hgb Conc 29.2 g/dL (32-36); Mean Corpuscular Hgb 27.9 pg (27.0-32.0); Mean Corpuscular Volume 95.4 fL (81-99); Mean Platelet Vol. 9.6 fl (6.2-12.0); Monocyte# 0.98 X10^3/uL; Monocyte% 10.7 % (0-10); NRBC Flagged by Analyzer 0 % (0-5); Neutrophil # 6.61 X10^3/uL (2.7-7.7); Platelet Count 192 K/mm3 (150-450); RBC Distribution Width CV 13.6 % (11.6-14.6); RBC Distribution Width SD 47.8 fl (35.1-43.9); Red Blood Count 4.34 M/mm3 (4.2-5.4); White Blood Count 9.2 K/mm3 (4.4-11.0)
[2020-11-04 05:57] LABS: Anion Gap 3 (5-15); BUN 13 mg/dL (7-18); BUN/Creat Ratio 17.6 RATIO (10-20); Calcium,Total 9.5 mg/dL (8.5-10.1); Chloride 100 mmol/L (98-107); Creatinine, Serum 0.74 mg/dL (0.55-1.02); EST Glomerular Filtration Rate 84 mL/min (>60); Est Glom Filt Rate - Afr Amer 101 mL/min (>60); Estimated Creatinine Clearance 43.77 ml/min; Glucose 106 mg/dL (74-106); Potassium 3.3 mmol/L (3.5-5.1); Sodium Level 142 mmol/L (136-145)
[2020-11-04 07:17] LABS: Magnesium 2.2 mg/dL (1.6-2.6)
[2020-11-04] MEDS: Potassium Chloride Oral Tablet 20 MEQ 60 MEQ PO (08:27)
[2020-11-04] MEDS: busPIRone 5 MG Tablet 7.5 MG PO (08:28)
[2020-11-04] MEDS: Folic Acid 1 MG Tablet PO (08:28)
[2020-11-04] MEDS: Aspirin 81 MG TAB.CHEW PO (08:28)
[2020-11-04] MEDS: Pantoprazole Sodium 40 MG Tablet PO (08:29)
[2020-11-04] MEDS: Cholecalciferol (VIT D3) 25 MCG TABLET (1,000 UNITS) PO (08:29)
[2020-11-04] MEDS: Carvedilol 12.5 MG Tablet PO (08:30)
[2020-11-04] MEDS: Spironolactone 25 MG Tablet 12.5 MG PO (08:30)
[2020-11-04] MEDS: predniSONE 20 MG Tablet 40 MG PO (08:31)
[2020-11-04] MEDS: DULoxetine Hcl 60 MG Capsule PO (08:33)
[2020-11-04 10:12] LABS: Vitamin B12 313 pg/mL (211-911)
--- NOTE | 2020-11-04 10:28 | PCM.DC ---
Discharge Instructions Outpatient Procedure Reason For Visit: ACUTE METABOLLIC ENCEPHALOPATHY Diet Discharge Diet: No restrictions Activity Discharge Activity: Return to Normal Activity Follow Up Care Please Follow Up With: Primary care provider When: Within the next two weeks. Test Results: Test results from this visit will be discussed in further detail at your follow-up appointment, if applicable. Discharge Plan Admission Admit Date/Time: 11/02/20 05:55 Primary Reason for Your Visit: Fall and COPD exacerbation. Attending Provider: Yazmin Buitrago Primary Care Provider: Maryam Pineda Instructions Patient Instructions: Care for COPD, COPD: Using Inhalers Discharge Orders/Prescriptions Prescriptions: New prednisone 20 mg tablet 40 mg PO DAILY Qty: 10 RF: 0 Continued carvedilol 12.5 mg Tablet 12.5 mg PO BID RF: 0 spironolactone 25 mg Tablet 12.5 mg PO DAILY RF: 0 trazodone 100 mg Tablet 100 mg PO QHS RF: 0 pantoprazole [Protonix] 40 mg Tablet,Delayed Release (Dr/Ec) 40 mg PO DAILY RF: 0 ropinirole 0.5 mg Tablet 0.5 mg PO QHS RF: 0 buspirone 7.5 mg Tablet 7.5 mg PO BID RF: 0 folic acid 1 mg Tablet 1 mg PO DAILY RF: 0 aspirin 81 mg Tablet 81 mg PO DAILY RF: 0 duloxetine 60 mg Capsule,Delayed Release(Dr/Ec) 60 mg PO DAILY RF: 0 cholecalciferol (vitamin D3) [Vitamin D3] 25 mcg (1,000 unit) Tablet 25 mcg PO DAILY RF: 0 potassium chloride 20 mEq Tablet Extended Release 20 meq PO DAILY RF: 0 Referrals: Maryam Pineda MD [Primary Care Provider] -
--- NOTE | 2020-11-04 10:57 | DS.PCM_ITS ---
Documented by User: Severo ROSENTHAL 11/04/20 12:31 Providers Date of Admission: 11/02/20 Primary Care Physician: Dr. Maryam Pineda MD Reason For Visit: ACUTE METABOLLIC ENCEPHALOPATHY Diagnosis Discharge Diagnosis (1) Acute encephalopathy: Status: Acute Code(s): G93.40 - Encephalopathy, unspecified (2) Respiratory insufficiency: Status: Acute Code(s): R06.89 - Other abnormalities of breathing (3) COPD (chronic obstructive pulmonary disease): Status: Chronic Code(s): J44.9 - Chronic obstructive pulmonary disease, unspecified Qualifiers: COPD type: unspecified COPD Qualified Code(s): J44.9 - Chronic obstructive pulmonary disease, unspecified (4) Head concussion: Status: Acute Code(s): S06.0X9A - Concussion with loss of consciousness of unspecified duration, in itial encounter (5) Fall: Status: Acute Code(s): W19.XXXA - Unspecified fall, initial encounter Qualifiers: Encounter type: initial encounter Qualified Code(s): W19.XXXA - Unspecified fall, initial encounter (6) Hypoxia: Status: Acute Code(s): R09.02 - Hypoxemia (7) Anxiety: Status: Chronic Code(s): F41.9 - Anxiety disorder, unspecified (8) Insomnia: Status: Acute Code(s): G47.00 - Insomnia, unspecified Medications at Discharge Home Medications aspirin 81 mg PO DAILY 11/03/20 buspirone 7.5 mg PO BID 11/03/20 carvedilol 12.5 mg PO BID 11/03/20 cholecalciferol (vitamin D3) [Vitamin D3] 25 mcg PO DAILY 11/03/20 duloxetine 60 mg PO DAILY 11/03/20 folic acid 1 mg PO DAILY 11/03/20 pantoprazole [Protonix] 40 mg PO DAILY 11/03/20 potassium chloride 20 meq PO DAILY 11/03/20 ropinirole 0.5 mg PO QHS 11/03/20 spironolactone 12.5 mg PO DAILY 11/03/20 trazodone 100 mg PO QHS 11/03/20 prednisone 40 mg PO DAILY #10 tab 11/04/20 zolpidem [Ambien] 5 mg PO QHS PRN #30 tab 05/03/21 Hospital Course Summary of Care Provided Minutes Spent on Discharge: 35 Hospital Course: Patient is a 65-year-old female who presented to the ED from home s/p mechanical fall after tripping over her dog, and was found to be hypoxic in the emergency department. Patient was admitted for fall and hypoxia in the setting of a possible COPD exacerbation. ABG has remained elevated at 84.3 at admission and 75.7 mmHg this morning, this reading is most likely related to her COPD. CBC unremarkable, BMP revealed mild hypokalemia at 3.3. Potassium was subsequently replaced repeat BMP will be obtained later on today. Today patient reports resolution of visual hallucinations from yesterday. Patient was alert and needed to 4; person, place, time and president. Patient is already on oxygen at home, home oxygen qualification revealed oxygen saturation of 91% on 2 L, which is her home prescription. Patient understands and is agreeable to be compliant with her home BiPAP to decrease her carbon dioxide levels. 1) Mechanical fall Patient suffered a mechanical fall after tripping over her dog at home. Physical exam did not demonstrate any head trauma. Brain CT demonstrated no acute intracranial abnormality, however did reveal a stable remote bilateral parietal occipital infarct. Plan; follow-up with primary care provider within the next 2 weeks. 2) Hypercapneic Hypoxic respiratory insufficiency in the setting of acute on chronic COPD. Chest x-ray demonstrates no acute cardiopulmonary pathology. Vital signs stable, oxygen saturation 95% on 3 L of oxygen via nasal cannula. COVID-19 and flu vaccinations up-to-date. Plan; continue home BiPAP, continue home DuoNeb, Symbicort and Spiriva, continue with current home oxygen prescription at 2 L via nasal cannula, initiate prednisone 40 mg p.o. daily x5 days on discharge, follow-up with primary care provider within the next 2 weeks. 3) Acute encephalopathy Resolved. Alert and oriented x4, visual hallucinations resolved. Most likely related to #2. Imaging and physical exam revealed no acute head or neck trauma. Plan; as above. 4) Insomnia secondary to anxiety Patient revealed to myself and attending that she suffers from chronic anxiety, which has been severely interrupting her sleep. Plan; Ambien for insomnia prescr ibed on discharge, recommended to patient to follow up with a psychiatrist or counselor to help with her anxiety. Patient seen by Severo Klein PA-C, under the supervision of Dr. Buitrago. Physical Exam Narrative Patient is a 65-year-old female who is comfortably resting in bed, alert and oriented x4; person, place, time and president. Patient reports resolution of visual hallucinations from yesterday and reports no other symptoms. Denies chest pain, shortness of breath, palpitations, fever, chills, N/V/D. Const alert, oriented x3 and no apparent distress HEENT normocephalic, head/scalp atraumatic and hearing grossly normal bilaterally Eyes EOMs intact bilaterally, conjunctivae normal and no scleral icterus Neck full ROM, no lymphadenopathy, supple and no JVD Lymph Lymphatic: no lymphadenopathy noted and no lymphedema noted Chest inspection of chest normal and palpation of chest normal Resp normal respiratory effort and normal air movement Auscultation: diminished lung sounds Cardio regular rate, regular rhythm and no murmurs GI normal to inspection, nondistended, normoactive bowel sounds, soft to palpation, non-tender and non-distended no CVA tenderness Back/Spine no CVA tenderness and normal ROM Extremity normal to inspection, full ROM and no calf tenderness Skin no rashes or lesions noted and no wounds Neuro CN's II-XII intact bilaterally Psych mental status grossly normal, thought process normal, speech normal and denies hallucinations ABG / Lab / Microbiology Data Result Diagrams: 11/04/20 05:34 11/04/20 13:20 Laboratory: Laboratory Results - last 24 hr 11/02/20 11/04/20 11/04/20 08:10 05:34 05:34 WBC 9.2 RBC 4.34 Hgb 12.1 Hct 41.4 MCV 95.4 MCH 27.9 MCHC 29.2 L RDW Std Deviation 47.8 H RDW Coeff of Deonte 13.6 Plt Count 192 MPV 9.6 Immature Gran % (Auto) 0.400 Neut % (Auto) 72.0 H Lymph % (Auto) 16.5 L Moody % (Auto) 10.7 H Eos % (Auto) 0.2 Baso % (Auto) 0.2 Absolute Neuts (auto) 6.6 Absolute Lymphs (auto) 1.52 Nucleated RBC % 0 Sodium 142 Potassium 3.3 L Chloride 100 Carbon Dioxide 39.0 H Anion Gap 3 L BUN 13 Creatinine 0.74 Estim Creat Clear Calc 43.77 Est GFR (MDRD) Af Amer 101 Est GFR (MDRD) Non-Af 84 BUN/Creatinine Ratio 17.6 Glucose 106 Calcium 9.5 Magnesium Vitamin B12 313 11/04/20 05:34 WBC RBC Hgb Hct MCV MCH MCHC RDW Std Deviation RDW Coeff of Deonte Plt Count MPV Immature Gran % (Auto) Neut % (Auto) Lymph % (Auto) Moody % (Auto) Eos % (Auto) Baso % (Auto) Absolute Neuts (auto) Absolute Lymphs (auto) Nucleated RBC % Sodium Potassium Chloride Carbon Dioxide Anion Gap BUN Creatinine Estim Creat Clear Calc Est GFR (MDRD) Af Amer Est GFR (MDRD) Non-Af BUN/Creatinine Ratio Glucose Calcium Magnesium 2.2 Vitamin B12 Microbiology: Microbiology 11/02/20 07:10 Mucosa - Nasopharyngeal Respiratory Panel (PCR) - Final 11/02/20 03:24 Nasal Secretion SARS-CoV-2 Antigen (Rapid) - Final D/C Instructions Discharge Diet: No restrictions Discharge Activity: Return to Normal Activity Please Follow Up With: Primary care provider When: Within the next two weeks. Meaningful Use Info Meaningful Use Diagnoses (Choose all that apply): None applicable Discharge Plan Admission Admit Date/Time: 11/02/20 06:01 Primary Reason for Your Visit: Fall and COPD exacerbation. Attending Provider: Yazmin Buitrago Primary Care Provider: Maryam Pineda Instructions Patient Instructions: Care for COPD, COPD: Using Inhalers Discharge Orders/Prescriptions Prescriptions: New prednisone 20 mg tablet 40 mg PO DAILY Qty: 10 RF: 0 zolpidem [Ambien] 5 mg tablet 5 mg PO QHS PRN (Reason: insomnia) Qty: 30 RF: 0 Continued carvedilol 12.5 mg Tablet 12.5 mg PO BID RF: 0 spironolactone 25 mg Tablet 12.5 mg PO DAILY RF: 0 trazodone 100 mg Tablet 100 mg PO QHS RF: 0 pantoprazole [Protonix] 40 mg Tablet,Delayed Release (Dr/Ec) 40 mg PO DAILY RF: 0 ropinirole 0.5 mg Tablet 0.5 mg PO QHS RF: 0 buspirone 7.5 mg Tablet 7.5 mg PO BID RF: 0 folic acid 1 mg Tablet 1 mg PO DAILY RF: 0 aspirin 81 mg Tablet 81 mg PO DAILY RF: 0 duloxetine 60 mg Capsule,Delayed Release(Dr/Ec) 60 mg PO DAILY RF: 0 cholecalciferol (vitamin D3) [Vitamin D3] 25 mcg (1,000 unit) Tablet 25 mcg PO DAILY RF: 0 potassium chloride 20 mEq Tablet Extended Release 20 meq PO DAILY RF: 0 Referrals: Maryam Pineda MD [Primary Care Provider] - Disposition Disposition (needs filled in before D/C Order can be placed): Home, self care Documented by User: Dr. Yazmin Buitrago MD 11/04/20 15:45 Providers Date of Admission: 11/02/20 Reason For Visit: ACUTE METABOLLIC ENCEPHALOPATHY Diagnosis Discharge Diagnosis (1) Acute encephalopathy: Status: Acute Code(s): G93.40 - Encephalopathy, unspecified (2) Respiratory insufficiency: Status: Acute Code(s): R06.89 - Other abnormalities of breathing (3) Hypoxia: Status: Acute Code(s): R09.02 - Hypoxemia (4) COPD exacerbation: Status: Chronic Code(s): J44.1 - Chronic obstructive pulmonary disease with (acute) exacerbation (5) Hypercarbia: Status: Acute Code(s): R06.89 - Other abnormalities of breathing (6) Anxiety and depression: Status: Chronic Code(s): F41.9 - Anxiety disorder, unspecified; F32.9 - Major depressive disorder, single episode, unspecified (7) Hyperlipidemia: Status: Chronic Code(s): E78.5 - Hyperlipidemia, unspecified Qualifiers: Hyperlipidemia type: unspecified Qualified Code(s): E78.5 - Hyperlipidemia, unspecified (8) Essential (primary) hypertension: Status: Chronic Code(s): I10 - Essential (primary) hypertension (9) Non-ischemic cardiomyopathy: Status: Chronic Code(s): I42.8 - Other cardiomyopathies (10) Chronic systolic (congestive) heart failure: Status: Chronic Code(s): I50.22 - Chronic systolic (congestive) heart failure (11) Hemorrhagic cerebrovascular accident (CVA): Status: Chronic Code(s): I61.9 - Nontraumatic intracerebral hemorrhage, unspecified Medications at Discharge Home Medications aspirin 81 mg PO DAILY 11/03/20 buspirone 7.5 mg PO BID 11/03/20 carvedilol 12.5 mg PO BID 11/03/20 cholecalciferol (vitamin D3) [Vitamin D3] 25 mcg PO DAILY 11/03/20 duloxetine 60 mg PO DAILY 11/03/20 folic acid 1 mg PO DAILY 11/03/20 pantoprazole [Protonix] 40 mg PO DAILY 11/03/20 potassium chloride 20 meq PO DAILY 11/03/20 ropinirole 0.5 mg PO QHS 11/03/20 spironolactone 12.5 mg PO DAILY 11/03/20 trazodone 100 mg PO QHS 11/03/20 prednisone 40 mg PO DAILY #10 tab 11/04/20 zolpidem [Ambien] 5 mg PO QHS PRN #30 tab 11/04/20 ABG / Lab / Microbiology Data Result Diagrams: 11/04/20 05:34 11/04/20 13:20 Discharge Plan Admission Admit Date/Time: 11/02/20 06:01 Primary Reason for Your Visit: Fall and COPD exacerbation. Attending Provider: Yazmin Buitrago Primary Care Provider: Maryam Pineda Instructions Patient Instructions: Care for COPD, COPD: Using Inhalers Discharge Orders/Prescriptions Prescriptions: New prednisone 20 mg tablet 40 mg PO DAILY Qty: 10 RF: 0 zolpidem [Ambien] 5 mg tablet 5 mg PO QHS PRN (Reason: insomnia) Qty: 30 RF: 0 Continued carvedilol 12.5 mg Tablet 12.5 mg PO BID RF: 0 spironolactone 25 mg Tablet 12.5 mg PO DAILY RF: 0 trazodone 100 mg Tablet 100 mg PO QHS RF: 0 pantoprazole [Protonix] 40 mg Tablet,Delayed Release (Dr/Ec) 40 mg PO DAILY RF: 0 ropinirole 0.5 mg Tablet 0.5 mg PO QHS RF: 0 buspirone 7.5 mg Tablet 7.5 mg PO BID RF: 0 folic acid 1 mg Tablet 1 mg PO DAILY RF: 0 aspirin 81 mg Tablet 81 mg PO DAILY RF: 0 duloxetine 60 mg Capsule,Delayed Release(Dr/Ec) 60 mg PO DAILY RF: 0 cholecalciferol (vitamin D3) [Vitamin D3] 25 mcg (1,000 unit) Tablet 25 mcg PO DAILY RF: 0 potassium chloride 20 mEq Tablet Extended Release 20 meq PO DAILY RF: 0 Referrals: Maryam Pineda MD [Primary Care Provider] - Disposition Disposition (needs filled in before D/C Order can be placed): Home, self care Addendum Addendum: ATTENDING PHYSICIAN DISCHARGE NOTE: I have seen and examined the patient independently and agree with the assessment, plan, history per Severo Klein as noted. Discharge Diagnoses: 1. Acute encephalopathy secondary to #2, #3, #4 2. Acute on chronic COPD exacerbation 3. Acute respiratory insufficiency with hypoxia and hypercarbia on Chronic Hypoxic Respiratory Failure (2L NC) 4. Mechanical fall likely related with #1, #2, #3 with acute concussion 5. Anxiety and depression with associated insomnia, uncontrolled 6. History of alcohol abuse 7. Chronic systolic CHF, nonischemic cardiomyopathy 8. History of stroke 9. TIO 10. CAD, history of non-STEMI 11. GERD 12. Chronic normocytic anemia 13. Former tobacco use Discharge Summary: The patient is a 65 y/o w/ PMHx: Chronic COPD w/ Chronic Hypoxic Respiratory Failure (2L NC), Anxiety and Depression, Chronic systolic CHF/Nonischemia cardiomyopathy, CAD/Hx NSTEMI, Hx CVA, Hx EtOH abuse, Former tobacco use, GERD who presents to the [facility] ED on 11/02/20 w/ history of increased work of breathing, wheezing, confusion with mechanical fall prompting ED evaluation. In the emergency room patient noted to be 55% on room air however when transition to her 2 L nasal cannula which she is normally on at home she was appropriate at rest however with any ambulation she decreased to 85% on room air. In the ED work-up included CT of the head with no acute intracranial findings with noted stable remote bilateral parietal occipital infarct, chest x- ray with no acute cardiopulmonary findings, EKG was sinus rhythm with no acute evidence of ischemia, initial CBC with WBC 11.6, hemoglobin 9.1, platelets 177 with left shift however this normalized on 11/03/2020 and patient remained afebrile. Patient was admitted to medical surgical floor, maintained on fall precautions, continued on steroid regimen with IV Solu-Medrol transition to p rednisone at discharge in addition to aerosols with clinical respiratory improvement. Patient Covid rapid antigen was negative as well as patient's respiratory viral panel. Patient confusion also did improve with improvement of her respiratory status. Given patient significant fall of the no obvious CT head findings acutely suspected concussion and rest parameters were encouraged. During evaluation patient did admit to significant stressors at home and severe anxiety as well as insomnia. She had previously been on Ambien but taken off of this. Did discuss at length and a low-dose of Ambien was prescribed however recommended early follow-up with her primary care physician in addition to therapy evaluation with benefit from consideration and to anxiolytic medication. Patient was discharged to home in stable improved condition with recommended PCP follow-up within 3 to 5 days. Discharge Time: > 35 Minutes DAY OF DISCHARGE PROGRESS NOTE: Subjective: Patient without acute event overnight per self and nursing report. Patient mental status improved, answering questions appropriately and amenable to discharge. Patient denies fever, chills, nausea, emesis, abdominal pain, chest pain or dyspnea. Patient agreeable to discharge to home. Patient will be discharged with follow-up with primary care physician within 3-5 days. Objective: T 98.2, heart rate 84, BP 102/48, respiratory rate 16, 97% on 2 L nasal cannula. Physical Examination: General: awake, alert, oriented x 3 and cooperative, seated upright in the bed, NAD, fatigued appearing. Skin: normal color, turgor, no icterus, cyanosis. HEENT: AT/NC, EOMI, PERRLA, MMM. Lungs: Diminished breath sounds, greater bases, moderate effort, no evidence of any respiratory distress, no rales, ronchi or wheezing, improved from initial ED presentation. Heart: Regular rate and rhythm; no gallop, rub audible. Abdomen: soft, NTTP, ND, normal BS. Extremities: no cyanosis, clubbing, or edema. Neurological: patient awake, alert, oriented as noted; cognitive function appears intact upon questioning,; pupils equally reactive to light and accomodation; cranial nerves II-XII grossly normal, moving all 4 extremities, strength mildly global decrease given acute presentation. Psychiatric: affect appears fatigued, suspect underlying uncontrolled anxiety and depression to which patient agrees, no acute evidence. Assessment and Plan: Please see hospital summary above. Visit Charges Inpatient E&M: [id number] Disch Hosp
--- NOTE | 2020-11-04 11:00 | CASEMGMT ---
FINESSE LALA Face to Face with patient for initial transition planning/care coordination assessment. RN CM introduced self and role at [facility]. Patient sitting in chair , alert and oriented. Patient willing to participate in assessment and is able to answer all questions appropriately. Care providers, pharmacy, and demographics verified. Patient wishes to discharge home, denies need for home health at this time. Patient states she has no further needs or concerns at this time. CM to follow for discharge planning needs that may arise. 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 3 steps and railing to enter the home. Transportation: significant other DME/HHC: Patient states she has shower chair, cane, walker, grab bars, nebulizer, Bipap, and oxygen at 2lpm through [employer] with portability. Patient states she is active with [facility] Disposition Plan: Patient to discharge home with family support and follow-up plans in place. Carla BROWN, RN, CM
--- NOTE | 2020-11-04 11:22 | PHA.DC.MC ---
Pharmacy Service has performed discharge medication reconciliation and counseling for this patient. The patient was counseled on the following discharge medications and changes in medications for homegoing were reviewed. 1. PREDNISONE The Reason for Use, instructions for use, and potential side effects were reviewed for all new medications. The patient's questions regarding all of their medications were answered. The patient was able to verbally demonstrate an understanding of their discharge medications. Home Medications aspirin 81 mg PO DAILY 11/03/20 buspirone 7.5 mg PO BID 11/03/20 carvedilol 12.5 mg PO BID 11/03/20 cholecalciferol (vitamin D3) [Vitamin D3] 25 mcg PO DAILY 11/03/20 duloxetine 60 mg PO DAILY 11/03/20 folic acid 1 mg PO DAILY 11/03/20 pantoprazole [Protonix] 40 mg PO DAILY 11/03/20 potassium chloride 20 meq PO DAILY 11/03/20 ropinirole 0.5 mg PO QHS 11/03/20 spironolactone 12.5 mg PO DAILY 11/03/20 trazodone 100 mg PO QHS 11/03/20 prednisone 40 mg PO DAILY #10 tab 11/04/20 The patient's discharge medication list was reviewed for discrepancies and discrepancies were resolved.
[2020-11-04] MEDS: Ipratropium/Albuterol Sulfate 3 ML AMPUL.NEB INHALATION (12:36)
[2020-11-04 13:40] LABS: Anion Gap 4 (5-15); BUN 15 mg/dL (7-18); BUN/Creat Ratio 19.9 RATIO (10-20); Calcium,Total 9.1 mg/dL (8.5-10.1); Chloride 102 mmol/L (98-107); Creatinine, Serum 0.75 mg/dL (0.55-1.02); EST Glomerular Filtration Rate 82 mL/min (>60); Est Glom Filt Rate - Afr Amer 99 mL/min (>60); Estimated Creatinine Clearance 43.77 ml/min; Glucose 131 mg/dL (74-106); Potassium 4.8 mmol/L (3.5-5.1); Sodium Level 140 mmol/L (136-145)
--- NOTE | 2020-11-05 15:53 | CASEMGMT ---
FINESSE LALA Discharge Follow-up Phone Call: MICHAEL: Piter Strata: 3 Call Date: 11/05/20 Discharge Date: 11/04/20 Time of Call: 1555 Duration: 3 min Admitting Diagnosis: Acute Metabolic Encephalopathy FINESSE LALA completed follow-up phone call after recent hospitalization. Patient states she is doing well and feeling much better. Patient states she had no questions regarding discharge instructions. Patient was able to fill prescriptions without any issues. Patient is aware to schedule follow-up appt with PCP. Patient had no further questions or concerns at this time.
== END 2020-11-04 14:05 | disposition home or self-care (01) | DRG 190 ==
LOC: ED 03:17 → MS3 06:15
PROVIDERS: Family Medicine; Physician Assistant; Admitting Provider Hospitalist; Emergency Provider Emergency Medicine; PCP Internal Medicine; Visit Provider Family Medicine
DX: J44.1 Chronic obstructive pulmonary disease with (acute) exacerbation (principal); J96.22 Acute and chronic respiratory failure with hypercapnia; J96.21 Acute and chronic respiratory failure with hypoxia; S06.0X9A Concussion with loss of consciousness of unspecified duration, initial encounter; G93.40 Encephalopathy, unspecified; I42.8 Other cardiomyopathies; I50.22 Chronic systolic (congestive) heart failure; E78.5 Hyperlipidemia, unspecified; I11.0 Hypertensive heart disease with heart failure; F32.9 Major depressive disorder, single episode, unspecified; G47.33 Obstructive sleep apnea (adult) (pediatric); Z87.891 Personal history of nicotine dependence; I27.21 Secondary pulmonary arterial hypertension; I34.0 Nonrheumatic mitral (valve) insufficiency; Z86.718 Personal history of other venous thrombosis and embolism; W01.0XXA Fall on same level from slipping, tripping and stumbling without subsequent striking against object, initial encounter; Y93.9 Activity, unspecified; Y92.009 Unspecified place in unspecified non-institutional (private) residence as the place of occurrence of the external cause; Y99.9 Unspecified external cause status; G47.00 Insomnia, unspecified; R44.1 Visual hallucinations; F41.9 Anxiety disorder, unspecified; I25.10 Atherosclerotic heart disease of native coronary artery without angina pectoris; K21.9 Gastro-esophageal reflux disease without esophagitis; D64.9 Anemia, unspecified; I25.2 Old myocardial infarction; Z86.73 Personal history of transient ischemic attack (TIA), and cerebral infarction without residual deficits
CPT/HCPCS: 36415; 36600; 70450; 71045; 71275; 80048; 80053; 81001; 82140; 82607; 82803; 83735; 83880; 84443; 84484; 85025; 87426; 87633; 93005; 94002; 94003; 94640; 94762; 97116; 97162; 97165; 97530; 97535; 99285; Q9967; A4216

== ENCOUNTER → 2020-11-29 06:48 | Outpatient (CLI) | payer MEDICARE, SELFPAY ==
[2020-11-19 08:24] VITALS: BMI 28.5
--- NOTE | 2020-11-29 06:51 | ECHOCS_ITS ---
Reason For Study: CAD/ASHD Procedure This was a 2D Doppler, Color Flow transthoracic echocardiogram. Exam performed in department. Left Ventricle Normal LV size. Left ventricular systolic function is normal. The estimated ejection fraction is 55 %. No regional wall motion abnormalities noted. Right Ventricle Normal RV size. Normal systolic function. Atria Normal left atrium. Normal right atrium. Mitral Valve Normal mitral valve. Mild (1+) mitral valve insufficiency. Tricuspid Valve Normal tricuspid valve. Aortic Valve Normal aortic valve. Trisinus/trileaflet aortic valve. Pulmonic Valve The pulmonic valve is not well visualized. Great Vessels Normal aortic root. The pulmonary artery is normal size. Normal inferior vena cava. Pericardium/Pleural No pericardial effusion. Medication Diluted definity 2ml given slow IV push to enhance endocardial definition. MMode/2D Measurements & Calculations LVIDd: 5.8 cm IVSd: 1.1 cm Ao root diam: 2.4 cm LVIDs: 4.2 cm LVPWd: 0.71 cm RVDd: 2.5 cm FS: 27.6 % LAV(MOD-bp): 37.8 ml LVAd ap4: 29.3 cm2 SV(MOD-sp4): 49.1 ml LAV(MOD-bp) Indexed: 22.4 ml/m2 LVLd ap4: 7.1 cm LAV(MOD-sp2): 44.3 ml EDV(MOD-sp4): 99.7 ml LAV(MOD-sp4): 30.4 ml EDV(sp4-el): 103.0 ml LVAs ap4: 19.3 cm2 LVLs ap4: 6.2 cm ESV(MOD-sp4): 50.6 ml ESV(sp4-el): 50.8 ml EF(MOD-sp4): 49.2 % EF(sp4-el): 50.7 % SV(sp4-el): 52.3 ml LA A4 area: 13.2 cm2 LA dimension(2D): 3.8 cm RA A4 area: 9.7 cm2 Doppler Measurements & Calculations MV E max james: 72.1 cm/sec Lat Peak E' James: 9.5 cm/sec Med Peak E' James: 6.1 cm/sec MV A max james: 103.4 cm/sec E/E' lat: 7.6 E/E' med: 11.9 MV E/A: 0.70 Ao V2 max: 145.7 cm/sec LV V1 max: 103.8 cm/sec PA V2 max: 92.9 cm/sec Ao max P.5 mmHg LV V1 max P.3 mmHg Ao V2 mean: 106.4 cm/sec Ao mean P.9 mmHg Ao V2 VTI: 28.5 cm TR max james: 329.0 cm/sec TR max P.3 mmHg ECHO/Echo Complete W/ Contrast Interpretation Summary Normal LV size. Left ventricular systolic function is normal. The estimated ejection fraction is 55 %. Contrast injection was performed. Ordering Physician: Shahzad Long Referring Physician: Maryam Pineda Performed By: Dana Neal, JENNIE, RVT
--- NOTE | 2020-11-29 16:32 | STRESSREP ---
Stress Test Report Pharmacologic myocardial perfusion stress test. 65-year-old lady with a history of coronary artery disease. Stress protocol: Resting EKG demonstrates normal sinus rhythm with a rate of 76 bpm normal intervals are noted occasional premature ventricular complexes are noted. Previous inferior infarct cannot be excluded. Resting blood pressures 112/68 mmHg. 0.4 mg of regadenoson was infused per usual protocol followed by rapid intravenous saline flush injection continuous EKG monitoring was performed. The maximum heart rate attained was 106 bpm which was 68% of maximum predicted heart rate the maximum workload was 1 metabolic equivalent. At rest there were no ST or T wave changes noted to suggest abnormal flow reserve and at peak infusion nonspecific ST changes were noted with did not meet the criteria for ischemia. The final blood pressure was 108/74 mmHg. Myocardial perfusion protocol. 10.7 mCi of technetium 99m sestamibi was injected at rest. 0.4 mg of regadenoson was infused per usual protocol. At peak infusion 34.1 mCi of technetium 99m sestamibi was injected at rest. Stress and rest images were reconstructed and compared in the short axis vertical long and horizontal long axis. Gated images were also obtained to Perfusion SPECT analysis: Review of the stress images demonstrate a defect extending from the mid to distal anterior wall involving the apex. The rest of the bermudez and the stress imaging appeared to be normal. The resting images demonstrate a similar defect in the apex suggestive of a previous extensive apical infarct. No obvious ischemia is noted. Gated SPECT analysis: The gated ejection fraction is 30% by gated SPECT. Conclusion: Pharmacologic myocardial perfusion stress test with extensive apical infarct. Reduced ejection fraction.
== END ==
PROVIDERS: PCP Internal Medicine; Referring Provider Internal Medicine Cardiovascular Disease; Visit Provider Internal Medicine Cardiovascular Disease
DX: I25.10 Atherosclerotic heart disease of native coronary artery without angina pectoris (principal)
CPT/HCPCS: 78452; 93017; 93306; A9500; Q9957; A4216; C8929; J2785; J3490

== ENCOUNTER 2020-12-09 10:19 | Inpatient (IN) | payer MEDICARE, SELFPAY ==
[2020-11-29 16:48] VITALS: BMI 28.1
[2020-12-09] VITALS (26 sets, daily range): BP systolic 90–142; BP diastolic 40–78; PULSE 84–102; RESP 12–25; TEMP 36.1–37; O2SAT 89–100; BMI 30.8
--- NOTE | 2020-12-09 10:20 | RAD_ITS ---
STUDY: X-RAY CHEST REASON FOR EXAM: Female, 65 years old. Respiratory failure, decreased level of consciousness TECHNIQUE: Single AP portable view of the chest. COMPARISON: Comparison is made with prior study dated 11/02/2020. FINDINGS: A right-sided roland catheter seen with the tip at the junction of the superior vena cava and right atrium. EKG electrodes are seen. Hyperinflation. The lungs are clear. There is no demonstrated pleural abnormality. Normal size heart. Normal mediastinum and jacinto. Normal visualized pulmonary arteries. There is atherosclerotic tortuosity of the aortic arch and descending thoracic aorta. There are diffuse degenerative changes of the visualized thoracic spine. Normal visualized ribs, clavicles, and shoulders. There is no demonstrated abnormality of the visualized soft tissue structures of the upper abdomen. RAD/Chest 1 View (Portable) IMPRESSION: Hyperinflation. The lungs are clear. Electronically Signed: Vinny Mcghee MD at 11:30 EDT , Service support ,
--- NOTE | 2020-12-09 10:20 | EKG12_ITS ---
Test Reason : NOT VERY RESPONSIVE Blood Pressure : / mmHG Vent. Rate : 095 BPM Atrial Rate : 095 BPM P-R Int : 122 ms QRS Dur : 086 ms QT Int : 330 ms P-R-T Axes : 072 046 053 degrees QTc Int : 414 ms Normal sinus rhythm Normal ECG Confirmed by MOISES MENDES, LINDSEY ([id number]), editor school photograph PIERRE HENNING ([id number]) on 12/13/2020 8:12:07 AM Referred By: RASHIDA Confirmed By:LINDSEY DE LEON MD
--- NOTE | 2020-12-09 10:21 | EX.ED.DYSGE1 ---
HPI History of Present Illness Chief Complaint: Shortness of Breath Informant: EMS Onset/Context/Timing Onset: Today Context: Sudden Onset Timing: Continuous Quality: Unresponsive this morning Location: In bed Current Severity: Severe Maximum Severity: Severe Worsened by: Unknown Relieved by: Nothing Associated Symptoms Associated Symptoms: Unknown Narrative Narrative: Patient is a 65-year-old woman who was not responsive this morning per . called EMS. Upon EMS arrival she was unresponsive. They placed her on CPAP since she was cyanotic and mottled. Apparently she was seen last month for problems breathing. Will review prior records. Presently unable obtain history. Prior similar symptoms: Yes Recent Illness/Hospitalization: Yes [facility] Medical History Acid-base disorder, mixed Acute and chronic respiratory failure Acute encephalopathy Alcohol abuse Anxiety Anxiety and depression Chronic anemia Chronic respiratory insufficiency Chronic systolic (congestive) heart failure CO2 narcosis COPD (chronic obstructive pulmonary disease) Daytime hypersomnia Essential (primary) hypertension Fall GERD (gastroesophageal reflux disease) Head concussion Hemorrhagic cerebrovascular accident (CVA) (02/09/17) History of DVT of lower extremity (02/11/17) History of non-ST elevation myocardial infarction (NSTEMI) (02/03/17) Hypercarbia Hyperlipidemia Hypotension arterial Insomnia Insomnia Ischemic cerebrovascular accident (CVA) (02/06/17) Non-ischemic cardiomyopathy Non-rheumatic mitral regurgitation TIO (obstructive sleep apnea) Respiratory insufficiency Secondary pulmonary arterial hypertension Stroke TIA (transient ischemic attack) (10/25/19) Home Medications aspirin 81 mg PO DAILY 11/03/20 [History Last Taken Unknown] buspirone 7.5 mg PO BID 11/03/20 [History Last Taken Unknown] carvedilol 12.5 mg PO BID 11/03/20 [History Last Taken Unknown] cholecalciferol (vitamin D3) [Vitamin D3] 25 mcg PO DAILY 11/03/20 [History Last Taken Unknown] duloxetine 60 mg PO DAILY 11/03/20 [History Last Taken Unknown] folic acid 1 mg PO DAILY 11/03/20 [History Last Taken Unknown] pantoprazole [Protonix] 40 mg PO DAILY 11/03/20 [History Last Taken Unknown] potassium chloride 20 meq PO DAILY 11/03/20 [History Last Taken Unknown] ropinirole 0.5 mg PO QHS 11/03/20 [History Last Taken Unknown] spironolactone 12.5 mg PO DAILY 11/03/20 [History Last Taken Unknown] zolpidem [Ambien] 5 mg PO QHS PRN #30 tab 11/04/20 [Rx Last Taken Unknown] fluticasone fur. 100 mcg-umeclid 62.5 mcg-vilant 25 mcg inhalat.powder 1 inh INHALATION DAILY ea 11/19/20 [History Last Taken Unknown] Allergy/AdvReac Type Severity Reaction Status Date / Time tetanus and diphtheria Allergy Hives Verified 11/19/20 08:25 toxoids [tetanus & diphtheria toxoids] Family History Sister Cancer lung Father Cancer lung Mother Cancer lung Surgical History H/O: section History of bilateral cataract extraction History of cholecystectomy History of lumpectomy Hx of appendectomy Social History Smoking Status: Former smoker how long ago did patient quit smokin, 1pk/day second hand exposure: Yes alcohol intake: former substance use type: does not use what type of physical activity do you participate in: walking frequency: daily ROS ROS ED Review of Systems ROS Unobtainable: due to mental status EXAM Physical Exam Const Vital Signs: 12/09/20 10:20 12/09/20 10:25 12/09/20 10:35 Temperature 96.9 F L 96.9 F L Temperature Source Temporal Temporal Pulse Rate 100 98 Respiratory Rate 20 H 20 H Respiratory Effort Labored Accessory Muscle Use Retracting Respiratory Depth Shallow Respiratory Pattern Irregular Blood Pressure 126/78 H 126/78 H Blood Pressure Mean 94 94 Pulse Ox 99 100 Oxygen Delivery Method Bi-pap Bi-pap Fraction of Inspired Oxygen (FIO2) 50 12/09/20 11:00 Temperature Temperature Source Pulse Rate Respiratory Rate Respiratory Effort Respiratory Depth Respiratory Pattern Blood Pressure Blood Pressure Mean Pulse Ox Oxygen Delivery Method Fraction of Inspired Oxygen (FIO2) 35 Positive well nourished, well developed and obese General Appearance ED: well developed and other Patient is mottled with decreased level of conscious. She does not follow simple commands. Nutritional Appearance: obese HEENT HEENT Narrative: Nares patent. Ears normal. Patient is presently on CPAP. Eyes PERRL and EOMs intact bilaterally General Eye ED: Negative for pale conjunctiva or scleral icterus Neck supple and no JVD Chest Wall inspection of chest normal Resp Resp Narrative: Patient has paradoxical breathing. Auscultation: rales bilateral lower and diminished lung sounds Cardio regular rhythm, S1 normal heart sound, S2 normal heart sound and no murmurs GI non-tender GI Narrative: Patient is tympanic. Abdomen is taut. There is mottling noted. Auscultation: hypoactive bowel sounds Palpation: soft Back/Spine no CVA tenderness Extremity Extremity Narrative: Mottling of lower and upper extremities. General Extremety ED: Negative for edema or tenderness General Extremity: Negative for edema Neuro No oriented x3 Sensorium / Orientation: Negative for alert Psych Psych Narrative: Unable to Skin Skin Narrative: There is mottling of the skin. MDM MDM MDM Narrative Medical decision making narrative: With depressed level of conscious, mottling need to evaluate for infectious causes. ABG was obtained to assess for CO2 narcosis. She was placed on BiPAP. Chest x-ray was ordered, EKG and appropriate blood work. With history of nonischemic cardiomyopathy and bilateral rales need to evaluate for congestive heart failure. This may represent COPD exacerbation. Nurse was unable to establish IV. Since patient is critical right subclavian line was placed. Patient was prepped draped sterile manner. Hospital guidelines and recommendations were adhered to. The area was prepped draped in sterile manner. Area was anesthetized. Vessel was cannulated with a finder needle. Vessel was cannulated on first attempt on the way out. Using Seldinger technique 7.5 [place]awk triple-lumen was placed. Blood was aspirated small 3 ports. Since patient has pinpoint pupils with disconjugate gaze and a GCS of possibly 4 will intubate then sent to CAT scan to rule out hemorrhagic versus nonhemorrhagic stroke as possible cause of her altered mental status with pinpoint pupils and disconjugate gaze. This may represent metabolic phenomenon as well. Because patient is bleeding quite easily PT/INR and PTT was ordered as well. Patient awoke after she was placed on AVAP. Suspect her altered mental status and ocular findings were due to metabolic causes. Lab Data Labs: Laboratory Results - last 24 hr 12/09/20 12/09/20 12/09/20 11:00 11:00 11:00 WBC 9.0 RBC 4.21 Hgb 12.3 Hct 41.6 MCV 98.8 MCH 29.2 MCHC 29.6 L RDW Std Deviation 47.8 H RDW Coeff of Deonte 13.4 Plt Count 263 MPV 9.4 Immature Gran % (Auto) 1.000 H Neut % (Auto) 74.2 H Lymph % (Auto) 14.1 L Metcalfe % (Auto) 9.1 Eos % (Auto) 1.2 Baso % (Auto) 0.4 Absolute Neuts (auto) 6.7 Absolute Lymphs (auto) 1.27 Nucleated RBC % 0 PT INR APTT Sodium 146 H Potassium 4.2 Chloride 105 Carbon Dioxide 38.0 H Anion Gap 3 L BUN 9 Creatinine 0.80 Estim Creat Clear Calc 54.71 Est GFR (MDRD) Af Amer 92 Est GFR (MDRD) Non-Af 76 BUN/Creatinine Ratio 11.3 Glucose 107 H Lactic Acid 0.5 Calcium 8.9 Total Bilirubin 0.40 AST 19 ALT 22 Alkaline Phosphatase 107 Troponin I < 0.015 B-Natriuretic Peptide Total Protein 7.0 Albumin 3.2 Globulin 3.8 Albumin/Globulin Ratio 0.8 L 12/09/20 12/09/20 11:00 11:00 WBC RBC Hgb Hct MCV MCH MCHC RDW Std Deviation RDW Coeff of Deonte Plt Count MPV Immature Gran % (Auto) Neut % (Auto) Lymph % (Auto) Metcalfe % (Auto) Eos % (Auto) Baso % (Auto) Absolute Neuts (auto) Absolute Lymphs (auto) Nucleated RBC % PT 12.5 INR 1.0 APTT 28.4 Sodium Potassium Chloride Carbon Dioxide Anion Gap BUN Creatinine Estim Creat Clear Calc Est GFR (MDRD) Af Amer Est GFR (MDRD) Non-Af BUN/Creatinine Ratio Glucose Lactic Acid Calcium Total Bilirubin AST ALT Alkaline Phosphatase Troponin I B-Natriuretic Peptide 160.8 H Total Protein Albumin Globulin Albumin/Globulin Ratio ABG Data ABG results: ABG 12/09/20 10:35 Specimen Type ART Sample Site R Radial pH 7.17 L* Bicarbonate Actual 37.1 H Total CO2 40 Base Excess 9 H O2 Saturation 100 H O2 % 70 ABG pCO2 102.1 H* ABG pO2 226 H Royal Test Positive O2 Delivery Device BiPAP Crit Call To/Read Back Yes Blood Gas Notified Whom ug Radiography Chest X-Ray - ED: 1 View, Read by ED Physician, Heart, Mediastinum, Bony Structures and - (Right subclavian line is in proper position with no evidence of pneumothorax or hemothorax. There is evidence of chronic changes consistent with COPD/hype inflation r) Diagnostic Testing: Radiology Impression Chest X-Ray 12/09/20 10:20 IMPRESSION: Hyperinflation. The lungs are clear. Electronically Signed: Vinny Mcghee MD at 11:30 EDT , Service support , Brain CT 12/09/20 11:15 IMPRESSION: Chronic involutional changes of the brain. Stable examination. Electronically Signed: Vinny Mcghee MD at 11:28 EDT , Service support , Procedures Other Procedures Procedure(s): Right subclavian line was placed by me as previously documented in the MDM portion of the chart. Critical Care Time Critical care time (excluding procedures): 30-74 minutes (36 minutes), Including time spent: (History, physical exam, documentation, discussion with EMS and once he arrived. Interpretation of laboratory results and initiation of therapy. This excludes time to place subclavian.), Discussing w/Consultants and Arranging Admission or Transfer Discharge Plan Dx/Rx/DC Orders Clinical Impression: Acute on chronic respiratory failure with hypoxia and hypercapnia Disposition Disposition: Acute Care [facility]
--- NOTE | 2020-12-09 10:40 | CPS ---
Critical ABG results given to Dr Sims.
[2020-12-09 10:46] LABS: Allen Test Positive; Base Excess 9 mmol/L (-2 to +2); Bicarbonate 37.1 mmol/L (22-26); Blood Gas Specimen Type ART; FI02 70; O2 Delivery Device BiPAP; PO2 226 mmHG (75-100); SITE R Radial; SO2 100 % (95-99); Total Carbon Dioxide 40 mmol/L; pCO2 102.1 mmHg (35-45); pH 7.17 (7.35-7.45)
[2020-12-09 11:14] LABS: Absolute Lymphocyte Count 1.27 X10^3/uL (0.83-4.51); Absolute Neutrophil Count 6.7 X10^3/uL (2.0-7.7); Basophil# 0.04 X10^3/uL; Basophil% 0.4 % (0-1); Eosinophil# 0.11 X10^3/uL; Eosinophils% 1.2 % (0-5); Hematocrit 41.6 % (37-47); Hemoglobin 12.3 g/dL (12.0-15.0); Lymphocyte # 1.27 X10^3/ul (0.83-4.51); Lymphocyte % 14.1 % (19-41); Mean Corp Hgb Conc 29.6 g/dL (32-36); Mean Corpuscular Hgb 29.2 pg (27.0-32.0); Mean Corpuscular Volume 98.8 fL (81-99); Mean Platelet Vol. 9.4 fl (6.2-12.0); Monocyte# 0.82 X10^3/uL; Monocyte% 9.1 % (0-10); NRBC Flagged by Analyzer 0 % (0-5); Neutrophil # 6.67 X10^3/uL (2.7-7.7); Neutrophil % 74.2 % (47-70); Platelet Count 263 K/mm3 (150-450); RBC Distribution Width CV 13.4 % (11.6-14.6); RBC Distribution Width SD 47.8 fl (35.1-43.9); Red Blood Count 4.21 M/mm3 (4.2-5.4)
--- NOTE | 2020-12-09 11:15 | CT_ITS ---
STUDY: CT BRAIN WITHOUT CONTRAST REASON FOR EXAM: Female, 65 years old. GCS 4, pinpoint pupils disconjugate gaze RADIATION DOSAGE (If Supplied By Facility): CTDIvol = ( 44.99 ) mGy, DLP = ( 796.11 ) mGycm TECHNIQUE: Transaxial CT imaging of the brain was performed without administration of intravenous contrast material. Individualized dose optimization techniques were used for this CT. COMPARISON: Comparison is made with prior examination dated 11/02/2020. FINDINGS: Normal soft tissue structures. Normal calvarium. There is mild cerebral atrophy with widening of the extra-axial spaces and ventricular dilatation. Stable encephalomalacia in the posterior aspect of the right parietal occipital lobe as well as in the posterior aspect of the left parietal lobe along its vertex. Old lacunar in the right thalamus. Normal brainstem. Normal cerebellum. There is no intracranial hemorrhage. There are no findings of an acute ischemic infarction. Normal visualized paranasal sinuses. CT/Brain/Head without Contrast IMPRESSION: Chronic involutional changes of the brain. Stable examination. Electronically Signed: Vinny Mcghee MD at 11:28 EDT , Service support ,
[2020-12-09 11:30] LABS: BNP,B-Type NATRIURETIC PEPTIDE 160.8 pg/mL (0-100)
[2020-12-09 11:33] LABS: ALB/GLOB Ratio 0.8 RATIO (0.9-2.4); AST(SGOT) 19 U/L (15-37); Alanine Aminotransfer ALT/SGPT 22 U/L (13-56); Albumin, Serum 3.2 g/dL (3.2-5.0); Alkaline Phosphatase 107 U/L (45-117); Anion Gap 3 (5-15); BUN 9 mg/dL (7-18); BUN/Creat Ratio 11.3 RATIO (10-20); Calcium,Total 8.9 mg/dL (8.5-10.1); Chloride 105 mmol/L (98-107); EST Glomerular Filtration Rate 76 mL/min (>60); Est Glom Filt Rate - Afr Amer 92 mL/min (>60); Estimated Creatinine Clearance 54.71 ml/min; Globulin 3.8 g/dL (2.2-4.2); Glucose 107 mg/dL (74-106); Potassium 4.2 mmol/L (3.5-5.1); Sodium Level 146 mmol/L (136-145)
[2020-12-09 11:35] LABS: Lactic Acid 0.5 mmol/L (0.4-1.9)
[2020-12-09 12:02] LABS: Prothrombin Time (Protime)PT. 12.5 SECONDS (11.7-14.9)
[2020-12-09 12:03] LABS: Partial Thromboplast Time 28.4 Seconds (24.1-36.2)
--- NOTE | 2020-12-09 12:36 | NURSING ---
ICU ASHELF ACUTE ON CHRONIC RESP FAILURE WITH HYPERCAPNIA AND HYPOXIA
--- NOTE | 2020-12-09 12:48 | NURSING ---
CV ICU 201
--- NOTE | 2020-12-09 13:10 | HP.PCM.HOS_ITS ---
[facility] - General General Date of Admission: 12/09/20 Date of Service: 12/09/20 Chief Complaint: Unresponsive. [facility] Narrative MARCO MAY, is a 65 F with past medical history as mentioned above presented to the emergency room because she was found unresponsive by her . Reportedly according to ER physician, patient was found unresponsive this morning by her . He called the squad and upon EMS arrived, patient was unresponsive. She was cyanotic and mottled, was placed on CPAP. At the time when I saw the patient, she was alert and oriented x2, she was able to answer questions appropriately. She does not remember that she was unresponsive at home. She did mention that she has been breathing short of breath and she has been using BiPAP at home. She denied cough or sputum production. She denied fever or chills. She denied abdominal pain, nausea or vomiting. She had a history of COPD and chronic respiratory failure, has been on home oxygen at 2 L and noninvasive ventilator at home. She will history of chronic systolic CHF and she has been on Coreg and Aldactone. She had a history of depression and she has been on BuSpar and duloxetine. In the emergency room, initial [place] Coma Scale was 4, patient was unresponsive. Upon my examination, patient was fully alert and awake, oriented x2, knew her full name and date of but she does not know where she is at. She is on BiPAP. She is afebrile, blood pressure stable, heart rate stable. Routine blood work was unremarkable. ABG revealed pH of 7.17, PCO2 of 102 and PO2 of 226. EKG revealed normal sinus rhythm without evidence of acute ischemic changes. Chest x-ray showed no acute infiltrate or consolidation. CT scan brain showed no acute findings. She is being admitted for acute on chronic hypercapnic respiratory failure probably due to noncompliance or misuse of noninvasive ventilator at home and also found to have acute metabolic encephalopathy. [facility] Medical History (Updated 12/09/20 @ 13:[address] Yelena Nichols MD) Alcohol abuse Anxiety Anxiety and depression Chronic anemia Chronic systolic (congestive) heart failure CO2 narcosis COPD (chronic obstructive pulmonary disease) Daytime hypersomnia Essential (primary) hypertension Fall GERD (gastroesophageal reflux disease) Head concussion Hemorrhagic cerebrovascular accident (CVA) (02/09/17) History of DVT of lower extremity (02/11/17) History of non-ST elevation myocardial infarction (NSTEMI) (02/03/17) Hypercarbia Hyperlipidemia Insomnia Ischemic cerebrovascular accident (CVA) (02/06/17) Non-ischemic cardiomyopathy Non-rheumatic mitral regurgitation TIO (obstructive sleep apnea) Respiratory insufficiency Secondary pulmonary arterial hypertension Stroke TIA (transient ischemic attack) (10/25/19) Home Medications aspirin 81 mg PO DAILY 11/03/20 [History Last Taken Unknown] buspirone 7.5 mg PO BID 11/03/20 [History Last Taken Unknown] carvedilol 12.5 mg PO BID 11/03/20 [History Last Taken Unknown] cholecalciferol (vitamin D3) [Vitamin D3] 25 mcg PO DAILY 11/03/20 [History Last Taken Unknown] duloxetine 60 mg PO DAILY 11/03/20 [History Last Taken Unknown] folic acid 1 mg PO DAILY 11/03/20 [History Last Taken Unknown] pantoprazole [Protonix] 40 mg PO DAILY 11/03/20 [History Last Taken Unknown] potassium chloride 20 meq PO DAILY 11/03/20 [History Last Taken Unknown] ropinirole 0.5 mg PO QHS 11/03/20 [History Last Taken Unknown] spironolactone 12.5 mg PO DAILY 11/03/20 [History Last Taken Unknown] zolpidem [Ambien] 5 mg PO QHS PRN #30 tab 11/04/20 [Rx Last Taken Unknown] fluticasone fur. 100 mcg-umeclid 62.5 mcg-vilant 25 mcg inhalat.powder 1 inh INHALATION DAILY ea 11/19/20 [History Last Taken Unknown] Allergy/AdvReac Type Severity Reaction Status Date / Time tetanus and diphtheria Allergy Hives Verified 11/19/20 08:25 toxoids [tetanus & diphtheria toxoids] Family History Sister Cancer lung Father Cancer lung Mother Cancer lung Surgical History H/O: section History of bilateral cataract extraction History of cholecystectomy History of lumpectomy Hx of appendectomy Social History Smoking Status: Former smoker how long ago did patient quit smokin, 1pk/day second hand exposure: Yes alcohol intake: former substance use type: does not use what type of physical activity do you participate in: walking frequency: daily ROS Constitutional Constitutional: Denies anorexia, chills, fatigue, fever(s) or malaise Eyes Eyes: Denies blurry vision, change in eye color, change in vision, double vision or eye pain ENT HEENT: Denies ear pain, epistaxis, headache(s), nasal congestion, post nasal drip or sore throat Cardiovascular Cardiovascular: Reports dyspnea on exertion; Denies chest pain, edema, lightheadedness, orthopnea, palpitations or syncope Respiratory/Chest Respiratory/Chest: Reports dyspnea and shortness of breath at rest; Denies cough, hemoptysis, productive cough or wheezing Gastrointestinal Gastrointestinal: Denies abdominal pain, constipation, diarrhea, hematemesis, hematochezia, melena, nausea or vomiting Genitourinary Genitourinary: Denies burning urination, dysuria, hematuria, urinary hesitancy or urinary urgency Musculoskeletal Musculoskeletal: Denies arthralgias, back pain, joint pain, joint swelling, myalgias or neck pain Neurologic Neurologic: Denies confusion, dizziness, focal weakness, headache(s), numbness, paresthesias, seizures, tingling or tremor(s) Psychiatric Psychiatric: Denies anxiety, depression, hallucinations, homicidal ideation or suicidal ideation Endocrine Endocrinology: Denies change in body appearance, cold intolerance, heat intoler ance, polydipsia or polyuria Hematologic/Lymphatic Hematologic/Lymphatic: Denies easy bleeding, easy bruising or lymphadenopathy Allergic/Immunologic Allergic/Immunologic: Denies itchy eyes, rhinitis, throat swelling, tongue swelling, hives, urticaria or wheezing Vital Signs Vital Signs Vital Signs: 12/09/20 10:20 12/09/20 10:25 12/09/20 10:35 Temperature 96.9 F L 96.9 F L Temperature Source Temporal Temporal Pulse Rate 100 98 Respiratory Rate 20 H 20 H Respiratory Effort Labored Accessory Muscle Use Retracting Respiratory Depth Shallow Respiratory Pattern Irregular Blood Pressure 126/78 H 126/78 H Blood Pressure Mean 94 94 Pulse Ox 99 100 Oxygen Delivery Method Bi-pap Bi-pap Fraction of Inspired Oxygen (FIO2) 50 12/09/20 11:00 12/09/20 11:19 12/09/20 11:25 Temperature 98.3 F Temperature Source Temporal Pulse Rate 98 98 Respiratory Rate 22 H 23 H Respiratory Effort Respiratory Depth Respiratory Pattern Blood Pressure 105/47 L 110/62 Blood Pressure Mean 66 78 Pulse Ox 97 97 Oxygen Delivery Method Bi-pap Bi-pap Fraction of Inspired Oxygen (FIO2) 35 12/09/20 12:19 12/09/20 12:55 Temperature 98.6 F Temperature Source Temporal Pulse Rate 89 96 Respiratory Rate 25 H 23 H Respiratory Effort Respiratory Depth Respiratory Pattern Blood Pressure 110/59 L 119/53 L Blood Pressure Mean 76 75 Pulse Ox 98 98 Oxygen Delivery Method Bi-pap Bi-pap Fraction of Inspired Oxygen (FIO2) Weight Weight: 168 lb 6.931 oz Body Mass Index (BMI) 30.8 Physical Exam Const alert, no apparent distress and no limitations Constitutional Narrative: Oriented x2, disoriented to place. On BiPAP. General Appearance: cooperative, comfortable and well kempt HEENT normocephalic, head/scalp atraumatic and moist oral mucous membranes Head and Scalp: normocephalic and atraumatic Eyes PERRL, EOMs intact bilaterally, conjunctivae normal and no scleral icterus General Eye: normal appearance of both eyes Periorbital: periorbital findings normal Neck no lymphadenopathy, supple, no meningeal signs, no JVD and no carotid bruits General: trachea midline Thyroid: thyroid normal Resp normal air movement Resp Narrative: Decreased breath sounds bilateral, moderately dyspneic and tachypneic. Auscultation: Negative for crackles, rales, rhonchi or wheezes Cardio regular rate, regular rhythm, S1 normal heart sound, S2 normal heart sound, no murmurs and no JVD Peripheral Pulses: pulses 2+ throughout GI normal to inspection, nondistended, normoactive bowel sounds, soft to palpation, non-tender and non-distended; Negative for hepatosplenomegaly Auscultation: normoactive bowel sounds Extremity normal to inspection, full ROM and no clubbing, cyanosis or edema Skin no rashes or lesions noted, no wounds and no petechiae Neuro CN's II-XII intact bilaterally and moves all extremities Sensorium / Orientation: alert, oriented to person and oriented to time Speech: speech normal Motor Exam: strength 5/5 throughout Psych mental status grossly normal, affect normal and denies hallucinations Results Lab / Micro Data Result Diagrams: 12/09/20 11:00 12/09/20 11:00 Labs: Laboratory Results - last 24 hr 12/09/20 12/09/20 12/09/20 11:00 11:00 11:00 WBC 9.0 RBC 4.21 Hgb 12.3 Hct 41.6 MCV 98.8 MCH 29.2 MCHC 29.6 L RDW Std Deviation 47.8 H RDW Coeff of Deonte 13.4 Plt Count 263 MPV 9.4 Immature Gran % (Auto) 1.000 H Neut % (Auto) 74.2 H Lymph % (Auto) 14.1 L [place] % (Auto) 9.1 Eos % (Auto) 1.2 Baso % (Auto) 0.4 Absolute Neuts (auto) 6.7 Absolute Lymphs (auto) 1.27 Nucleated RBC % 0 PT INR APTT Sodium 146 H Potassium 4.2 Chloride 105 Carbon Dioxide 38.0 H Anion Gap 3 L BUN 9 Creatinine 0.80 Estim Creat Clear Calc 54.71 Est GFR (MDRD) Af Amer 92 Est GFR (MDRD) Non-Af 76 BUN/Creatinine Ratio 11.3 Glucose 107 H Lactic Acid 0.5 Calcium 8.9 Total Bilirubin 0.40 AST 19 ALT 22 Alkaline Phosphatase 107 Troponin I < 0.015 B-Natriuretic Peptide Total Protein 7.0 Albumin 3.2 Globulin 3.8 Albumin/Globulin Ratio 0.8 L 12/09/20 12/09/20 11:00 11:00 WBC RBC Hgb Hct MCV MCH MCHC RDW Std Deviation RDW Coeff of [place] Plt Count MPV Immature Gran % (Auto) Neut % (Auto) Lymph % (Auto) [place] % (Auto) Eos % (Auto) Baso % (Auto) Absolute Neuts (auto) Absolute Lymphs (auto) Nucleated RBC % PT 12.5 INR 1.0 APTT 28.4 Sodium Potassium Chloride Carbon Dioxide Anion Gap BUN Creatinine Estim Creat Clear Calc Est GFR (MDRD) Af Amer Est GFR (MDRD) Non-Af BUN/Creatinine Ratio Glucose Lactic Acid Calcium Total Bilirubin AST ALT Alkaline Phosphatase Troponin I B-Natriuretic Peptide 160.8 H Total Protein Albumin Globulin Albumin/Globulin Ratio ABG Data ABG results: ABG 12/09/20 10:35 Specimen Type ART Sample Site R Radial pH 7.17 L* Bicarbonate Actual 37.1 H Total CO2 40 Base Excess 9 H O2 Saturation 100 H O2 % 70 ABG pCO2 102.1 H* ABG pO2 226 H Royal Test Positive O2 Delivery Device BiPAP Crit Call To/Read Back Yes Blood Gas Notified Whom ug Radiology Impression Chest X-Ray 12/09/20 10:20 IMPRESSION: Hyperinflation. The lungs are clear. Electronically Signed: Vinny Mcghee MD at 11:30 EDT , Service support , Brain CT 12/09/20 11:15 IMPRESSION: Chronic involutional changes of the brain. Stable examination. Electronically Signed: Vinny Mcghee MD at 11:28 EDT , Service support , Assessment & Plan Assessment/Plan (1) Acute encephalopathy: (2) Acute and chronic respiratory failure with hypercapnia: (3) Chronic systolic (congestive) heart failure: (4) Essential (primary) hypertension: (5) Hyperlipidemia: QUALIFIERS: Hyperlipidemia type: unspecified Qualified Code(s): E78.5 - Hyperlipidemia, unspecified (6) COPD (chronic obstructive pulmonary disease): QUALIFIERS: COPD type: unspecified COPD Qualified Code(s): J44.9 - Chronic obstructive pulmonary disease, unspecified PLAN: This is a 65 years old female patient presented to the emergency room because she was found unresponsive by her , found to have elevated PCO2, complained of shortness of breath and she is being admitted for acute on chronic hypercapnic respiratory failure and acute metabolic encephalopathy. #1 acute on chronic hypercapnic respiratory failure/CO2 retention/respiratory acidosis: Probably due to noncompliance or misuse of the noninvasive ventilator at home. Chest x-ray showed no acute findings. She does not have significant wheezing on auscultation. She is afebrile, routine blood work was unremarkable. EKG reviewed, was unremarkable. ABG reviewed. Plan: Admit to ICU, critical monitoring, complete bedrest, continue BiPAP, DuoNeb every 4 hours, albuterol as needed, incentive spirometer, chest physiotherapy, critical care consult, repeat CBC and BMP tomorrow morning, PT OT evaluation and treatment. At this time, I doubt any indication for steroids or antibiotics. #2 acute metabolic encephalopathy: Initially, patient was unresponsive, [place] Coma Scale of 4. Currently, she is alert and oriented x2. She has no focal deficit on physical exam. CT scan brain showed no acute findings. This is probably due to CO2 narcosis, plan as above. #3 chronic systolic CHF: Without evidence of acute exacerbation. Plan to continue Coreg and Aldactone with home medication list updated. #4 hypertension: Blood pressure stable, continue Coreg. #5 hyperlipidemia: Not on statins. #6 chronic COPD/chronic respiratory failure: She is on oxygen at home at 2 L during daytime, on noninvasive ventilator at nighttime. Plan as above. #7 CODE STATUS: Full code, discussed with the patient. #8 DVT prophylaxis, subcu Lovenox. This note was generated with [employer] dictation software. It may contain incorrect words, spelling, and punctuation that were not noted in checking the note before signing. Charges/Coding Visit Charges Inpatient E&M: 55227 Init Hosp L3
[2020-12-09] MEDS: Acetaminophen 325 MG Tablet 650 MG PO (13:49)
--- NOTE | 2020-12-09 15:25 | EX.PCM.CONCC ---
Assessment & Plan Assessment/Plan (1) Acute encephalopathy: (2) Acute and chronic respiratory failure with hypercapnia: (3) Chronic systolic (congestive) heart failure: (4) Hyperlipidemia: QUALIFIERS: Hyperlipidemia type: unspecified Qualified Code(s): E78.5 - Hyperlipidemia, unspecified (5) COPD (chronic obstructive pulmonary disease): QUALIFIERS: COPD type: unspecified COPD Qualified Code(s): J44.9 - Chronic obstructive pulmonary disease, unspecified (6) TIO (obstructive sleep apnea): PLAN: RECOMMENDATIONS: 1. Initiate AVAPS with sleep 2. Continue home regimen. Would not recommend increase steroids or antibiotics 3. Encourage compliance with home AVAPS 4. Keep saturations between 90 and 95% to avoid CO2 retention IMPRESSIONS: 1. Metabolic encephalopathy secondary to CO2 narcosis Patient was significantly elevated carbon oxide on presentation, likely secondary to chronic CO2 retention given noncompliance with AVAPS. We will continue with AVAPS with sleep and see if patient is able to maintain mentation overnight. Patient is much improved now compared to previous after just a short period of time on AVAPS. Patient is on buspirone and Ambien at home, which may worsen CO2 retention in the setting of noncompliance with AVAPS. 2. Acute on chronic combined respiratory failure secondary to AVAPS noncompliance Patient is not reporting any signs or symptoms consistent with a COPD exacerbation at this time. After finding compliance showing 20%, anticipate slow CO2 retention over the course of days. We will continue to encourage compliance with AVAPS. Patient should also keep saturations between 90 and 95% to avoid decreasing hypoxic drive. Patient should be able to continue with sleep aids as long as she is compliant with her AVAPS. 3. Chronic systolic CHF/hypertension/hyperlipidemia Complicates care, management, recovery and prognosis. Patient does not appear to be in exacerbation of congestive heart failure at this time. Elevated BNP may be secondary to acute condition from cardiac strain in dealing with respiratory issues. Okay to continue with baseline medications from my perspective. HPI Consult Data Date of Consult: 12/09/20 HPI Narrative HPI Narrative: MARCO MAY is a 65-year-old female, with past medical history listed below and well-known to us from the outpatient office, who presented to [facility] on 12/09/2020 secondary to shortness of breath and being found unresponsive in bed this morning. Patient reportedly was found by her unresponsive in bed was noted to be cyanotic and mottled. Patient reportedly was unable to provide any additional information at that time. In the ER, patient was afebrile, but tachycardic. Patient was placed on BiPAP therapy with improvement in mentation and mottling. Patient was able to follow simple commands. Chest x-ray was unremarkable. Patient did have bilateral rales and there was concern for congestive heart failure. Nursing was unable to obtain IV access, so a right subclavian central line was placed. Patient was noted to have a GCS of 4 and was sent to the CT for a CT of the head for evaluation of hemorrhagic stroke. Laboratory work-up was relatively unremarkable except for an elevated bicarbonate of 38, sodium of 146 and glucose of 107. Troponin and liver function studies were within normal limits. BNP was slightly elevated at 160. Patient's ABG was 7.17/102/226/100% on BiPAP therapy with 70% FiO2. Since being in the intensive care unit, patient has been able to be taken off of BiPAP therapy. Patient is conversant, but not able to provide much additional history. Patient denies any recent change in her exercise tolerance, sputum or shortness of breath. Patient states her machine has acted funny, but states she has been compliant with her nocturnal BiPAP. Patient did state that she started to use Tylenol PM as a sleep aid. Patient states that she would take half a tablet to help her with sleep. Patient states she has woken up in the past month with cold sweats of unclear etiology. Patient does follow with palliative care, but states that she has been using less medications recently not more. Review of systems otherwise negative from a constitutional, HEENT, respiratory, cardiovascular, GI, genitourinary, musculoskeletal, skin, neurologic, psychiatric and hematologic system unless stated above. [facility] Medical History Alcohol abuse Anxiety Anxiety and depression Chronic anemia Chronic systolic (congestive) heart failure CO2 narcosis COPD (chronic obstructive pulmonary disease) Daytime hypersomnia Essential (primary) hypertension Fall GERD (gastroesophageal reflux disease) Head concussion Hemorrhagic cerebrovascular accident (CVA) (02/09/17) History of DVT of lower extremity (02/11/17) History of non-ST elevation myocardial infarction (NSTEMI) (02/03/17) Hypercarbia Hyperlipidemia Insomnia Ischemic cerebrovascular accident (CVA) (02/06/17) Non-ischemic cardiomyopathy Non-rheumatic mitral regurgitation TIO (obstructive sleep apnea) Respiratory insufficiency Secondary pulmonary arterial hypertension Stroke TIA (transient ischemic attack) (10/25/19) Home Medications aspirin 81 mg PO DAILY 11/03/20 [History Last Taken Unknown] buspirone 7.5 mg PO BID 11/03/20 [History Last Taken Unknown] carvedilol 12.5 mg PO BID 11/03/20 [History Last Taken Unknown] cholecalciferol (vitamin D3) [Vitamin D3] 25 mcg PO DAILY 11/03/20 [History Last Taken Unknown] duloxetine 60 mg PO DAILY 11/03/20 [History Last Taken Unknown] folic acid 1 mg PO DAILY 11/03/20 [History Last Taken Unknown] pantoprazole [Protonix] 40 mg PO DAILY 11/03/20 [History Last Taken Unknown] potassium chloride 20 meq PO DAILY 11/03/20 [History Last Taken Unknown] ropinirole 0.5 mg PO QHS 11/03/20 [History Last Taken Unknown] spironolactone 12.5 mg PO DAILY 11/03/20 [History Last Taken Unknown] zolpidem [Ambien] 5 mg PO QHS PRN #30 tab 11/04/20 [Rx Last Taken Unknown] fluticasone fur. 100 mcg-umeclid 62.5 mcg-vilant 25 mcg inhalat.powder 1 inh INHALATION DAILY ea 11/19/20 [History Last Taken Unknown] Allergy/AdvReac Type Severity Reaction Status Date / Time tetanus and diphtheria Allergy Hives Verified 11/19/20 08:25 toxoids [tetanus & diphtheria toxoids] Family History Sister Cancer lung Father Cancer lung Mother Cancer lung Surgical History H/O: section History of bilateral cataract extraction History of cholecystectomy History of lumpectomy Hx of appendectomy Social History Smoking Status: Former smoker how long ago did patient quit smokin, 1pk/day second hand exposure: Yes alcohol intake: former substance use type: does not use what type of physical activity do you participate in: walking frequency: daily ROS ROS Narrative See HPI Physical Exam Const alert, no apparent distress and no limitations Constitutional Narrative: Oriented x3. Off BiPAP. General Appearance: cooperative, comfortable and well kempt HEENT normocephalic, head/scalp atraumatic and moist oral mucous membranes Head and Scalp: normocephalic and atraumatic Eyes PERRL, EOMs intact bilaterally, conjunctivae normal and no scleral icterus General Eye: normal appearance of both eyes Periorbital: periorbital findings normal Neck no lymphadenopathy, supple, no meningeal signs, no JVD and no carotid bruits General: trachea midline Thyroid: thyroid normal Resp Resp Narrative: Decreased breath sounds bilateral, moderately dyspneic and tachypneic. Auscultation: Negative for crackles, rales, rhonchi or wheezes Cardio regular rate, regular rhythm, S1 normal heart sound, S2 normal heart sound, no murmurs and no JVD Peripheral Pulses: pulses 2+ throughout GI normal to inspection, nondistended, normoactive bowel sounds, soft to palpation, non-tender and non-distended; Negative for hepatosplenomegaly Auscultation: normoactive bowel sounds Extremity normal to inspection, full ROM and no clubbing, cyanosis or edema Skin no rashes or lesions noted, no wounds and no petechiae Neuro CN's II-XII intact bilaterally and moves all extremities Sensorium / Orientation: alert, oriented to person and oriented to time Speech: speech normal Motor Exam: strength 5/5 throughout Psych mental status grossly normal, affect normal and denies hallucinations Medical Records Data Attestation: I reviewed the patient's medical records Medical records narrative: Contacted the office. Patient had a compliance report downloaded. This shows 20% compliance over the last 30 days. Patient has not used her AVAPS since November 16. Lab / Micro Data Result Diagrams: 12/09/20 11:00 12/09/20 11:00 Labs: Laboratory Results - last 24 hr 12/09/20 12/09/20 12/09/20 11:00 11:00 11:00 WBC 9.0 RBC 4.21 Hgb 12.3 Hct 41.6 MCV 98.8 MCH 29.2 MCHC 29.6 L RDW Std Deviation 47.8 H RDW Coeff of Deonte 13.4 Plt Count 263 MPV 9.4 Immature Gran % (Auto) 1.000 H Neut % (Auto) 74.2 H Lymph % (Auto) 14.1 L [place] % (Auto) 9.1 Eos % (Auto) 1.2 Baso % (Auto) 0.4 Absolute Neuts (auto) 6.7 Absolute Lymphs (auto) 1.27 Nucleated RBC % 0 PT INR APTT Sodium 146 H Potassium 4.2 Chloride 105 Carbon Dioxide 38.0 H Anion Gap 3 L BUN 9 Creatinine 0.80 Estim Creat Clear Calc 54.71 Est GFR (MDRD) Af Amer 92 Est GFR (MDRD) Non-Af 76 BUN/Creatinine Ratio 11.3 Glucose 107 H Lactic Acid 0.5 Calcium 8.9 Total Bilirubin 0.40 AST 19 ALT 22 Alkaline Phosphatase 107 Troponin I < 0.015 B-Natriuretic Peptide Total Protein 7.0 Albumin 3.2 Globulin 3.8 Albumin/Globulin Ratio 0.8 L 12/09/20 12/09/20 11:00 11:00 WBC RBC Hgb Hct MCV MCH MCHC RDW Std Deviation RDW Coeff of Deonte Plt Count MPV Immature Gran % (Auto) Neut % (Auto) Lymph % (Auto) Pinal % (Auto) Eos % (Auto) Baso % (Auto) Absolute Neuts (auto) Absolute Lymphs (auto) Nucleated RBC % PT 12.5 INR 1.0 APTT 28.4 Sodium Potassium Chloride Carbon Dioxide Anion Gap BUN Creatinine Estim Creat Clear Calc Est GFR (MDRD) Af Amer Est GFR (MDRD) Non-Af BUN/Creatinine Ratio Glucose Lactic Acid Calcium Total Bilirubin AST ALT Alkaline Phosphatase Troponin I B-Natriuretic Peptide 160.8 H Total Protein Albumin Globulin Albumin/Globulin Ratio Micro: Microbiology 12/09/20 11:00 SARS-CoV-2 Antigen (Rapid) - Final Mucosa - Nasopharyngeal ABG Data ABG results: ABG 12/09/20 10:35 Specimen Type ART Sample Site R Radial pH 7.17 L* Bicarbonate Actual 37.1 H Total CO2 40 Base Excess 9 H O2 Saturation 100 H O2 % 70 ABG pCO2 102.1 H* ABG pO2 226 H Royal Test Positive O2 Delivery Device BiPAP Crit Call To/Read Back Yes Blood Gas Notified Whom ug Radiology Impression Chest X-Ray 12/09/20 10:20 IMPRESSION: Hyperinflation. The lungs are clear. Electronically Signed: Vinny Mcghee MD at 11:30 EDT , Service support , Brain CT 12/09/20 11:15 IMPRESSION: Chronic involutional changes of the brain. Stable examination. Electronically Signed: Vinny Mcghee MD at 11:28 EDT , Service support , Charges/Coding Visit Charges Inpatient E&M: 85563 Init Hosp L3
[2020-12-09] MEDS: Ipratropium/Albuterol Sulfate 3 ML AMPUL.NEB INHALATION ×3 (15:34→22:04)
[2020-12-09] MEDS: Zolpidem Tartrate 5 MG Tablet PO (21:22)
[2020-12-09] MEDS: Pramipexole Di-HCl 0.25 MG Tablet PO (21:22)
[2020-12-09] MEDS: busPIRone 15 MG TABLET 7.5 MG PO (21:22)
[2020-12-09] MEDS: Carvedilol 12.5 MG Tablet PO (21:22)
[2020-12-10] VITALS (15 sets, daily range): BP systolic 94–141; BP diastolic 42–64; PULSE 72–88; RESP 14–22; TEMP 36.6–37.1; O2SAT 83–98
--- NOTE | 2020-12-10 02:00 | CPS ---
FiO2 increased to 28% to maintain SpO2 > 90%
--- NOTE | 2020-12-10 03:56 | CPS ---
Pt.'s FiO2 decreased to 24%; maintain SpO2 in between 90%-95%. Small mask placed on pt. due to oversize of medium mask.
[2020-12-10 05:16] LABS: Absolute Lymphocyte Count 1.72 X10^3/uL (0.83-4.51); Absolute Neutrophil Count 5.4 X10^3/uL (2.0-7.7); Basophil# 0.02 X10^3/uL; Basophil% 0.2 % (0-1); Eosinophils% 1.2 % (0-5); Hematocrit 36.6 % (37-47); Hemoglobin 10.9 g/dL (12.0-15.0); Lymphocyte # 1.72 X10^3/ul (0.83-4.51); Lymphocyte % 21.4 % (19-41); Mean Corp Hgb Conc 29.8 g/dL (32-36); Mean Corpuscular Hgb 28.8 pg (27.0-32.0); Mean Corpuscular Volume 96.8 fL (81-99); Mean Platelet Vol. 9.3 fl (6.2-12.0); Monocyte# 0.72 X10^3/uL; NRBC Flagged by Analyzer 0 % (0-5); Neutrophil # 5.42 X10^3/uL (2.7-7.7); Neutrophil % 67.6 % (47-70); Platelet Count 216 K/mm3 (150-450); RBC Distribution Width CV 13.3 % (11.6-14.6); RBC Distribution Width SD 47.5 fl (35.1-43.9); Red Blood Count 3.78 M/mm3 (4.2-5.4)
[2020-12-10 05:29] LABS: Anion Gap 2 (5-15); BUN 11 mg/dL (7-18); BUN/Creat Ratio 16.1 RATIO (10-20); Calcium,Total 9.1 mg/dL (8.5-10.1); Chloride 103 mmol/L (98-107); Creatinine, Serum 0.68 mg/dL (0.55-1.02); EST Glomerular Filtration Rate 91 mL/min (>60); Est Glom Filt Rate - Afr Amer 110 mL/min (>60); Estimated Creatinine Clearance 43.77 ml/min; Glucose 90 mg/dL (74-106); Potassium 3.4 mmol/L (3.5-5.1); Sodium Level 145 mmol/L (136-145)
[2020-12-10] MEDS: Senna/Docusate Sodium 1 Tablet 2 TABLET PO (06:48)
--- NOTE | 2020-12-10 07:01 | PCM.PN.INT ---
Assessment & Plan Assessment/Plan (1) Acute encephalopathy: (2) Acute and chronic respiratory failure with hypercapnia: (3) Chronic systolic (congestive) heart failure: (4) Hyperlipidemia: QUALIFIERS: Hyperlipidemia type: unspecified Qualified Code(s): E78.5 - Hyperlipidemia, unspecified (5) COPD (chronic obstructive pulmonary disease): QUALIFIERS: COPD type: unspecified COPD Qualified Code(s): J44.9 - Chronic obstructive pulmonary disease, unspecified (6) TIO (obstructive sleep apnea): PLAN: RECOMMENDATIONS: 1. Add stool softener 2. Continue home regimen. Would not recommend increase steroids or antibiotics 3. Encourage compliance with home AVAPS 4. Keep saturations between 90 and 95% to avoid CO2 retention 5. Contact [facility] to evaluate home unit IMPRESSIONS: 1. Metabolic encephalopathy secondary to CO2 narcosis Resolved. Patient was significantly elevated carbon oxide on presentation, likely secondary to chronic CO2 retention given noncompliance with AVAPS. We will continue with AVAPS with sleep and see if patient is able to maintain mentation overnight. Patient is much improved now compared to previous after just a short period of time on AVAPS. Patient is on buspirone and Ambien at home, which may worsen CO2 retention in the setting of noncompliance with AVAPS. 2. Acute on chronic combined respiratory failure secondary to AVAPS noncompliance Patient is not reporting any signs or symptoms consistent with a COPD exacerbation at this time. After finding compliance showing 20%, anticipate slow CO2 retention over the course of days. Patient reports that she has been compliant with therapy despite compliance report. Will discuss with case management about having [facility] evaluate the machine for proper functionality. Clinical suspicion is for noncompliance, will give benefit of the doubt to the patient. 3. Chronic systolic CHF/hypertension/hyperlipidemia Complicates care, management, recovery and prognosis. Patient does not appear to be in exacerbation of congestive heart failure at this time. Elevated BNP may be secondary to acute condition from cardiac strain in dealing with respiratory issues. Okay to continue with baseline medications from my perspective. Subjective Subjective Patient did well overnight. No acute issues were reported. Patient was compliant with BiPAP therapy with encouragement. Patient continues to report that she was compliant with BiPAP at home but states it is not working right. Patient is also had some constipation and was requesting a stool softener. Objective Data Objective Data Vital Signs: Vital Signs Temp Pulse Resp BP Pulse Ox 37.1 C 84 22 H 132/64 H 95 12/10/20 05:00 12/10/20 06:00 12/10/20 06:00 12/10/20 06:00 12/10/20 06:00 Oxygen Flow Rate (L/min) 1 Oxygen Delivery Method Nasal Cannula Weight: 77.3 kg Body Mass Index (BMI) 30.8 Intake & Output: Intake and Output for Last 24 Hours 12/08/20 12/09/20 12/10/20 23:59 23:59 23:59 Intake Total 180 / 180 Output Total 775 / 775 350 / 350 Balance -775 / -775 -170 / -170 Lab / Micro Data Result Diagrams: 12/10/20 05:00 12/10/20 05:00 Labs: Laboratory Results - last 24 hr 12/09/20 12/09/20 12/09/20 11:00 11:00 11:00 WBC 9.0 RBC 4.21 Hgb 12.3 Hct 41.6 MCV 98.8 MCH 29.2 MCHC 29.6 L RDW Std Deviation 47.8 H RDW Coeff of Deonte 13.4 Plt Count 263 MPV 9.4 Immature Gran % (Auto) 1.000 H Neut % (Auto) 74.2 H Lymph % (Auto) 14.1 L Person % (Auto) 9.1 Eos % (Auto) 1.2 Baso % (Auto) 0.4 Absolute Neuts (auto) 6.7 Absolute Lymphs (auto) 1.27 Nucleated RBC % 0 PT INR APTT Sodium 146 H Potassium 4.2 Chloride 105 Carbon Dioxide 38.0 H Anion Gap 3 L BUN 9 Creatinine 0.80 Estim Creat Clear Calc 54.71 Est GFR (MDRD) Af Amer 92 Est GFR (MDRD) Non-Af 76 BUN/Creatinine Ratio 11.3 Glucose 107 H Lactic Acid 0.5 Calcium 8.9 Total Bilirubin 0.40 AST 19 ALT 22 Alkaline Phosphatase 107 Troponin I < 0.015 B-Natriuretic Peptide Total Protein 7.0 Albumin 3.2 Globulin 3.8 Albumin/Globulin Ratio 0.8 L 12/09/20 12/09/20 12/10/20 11:00 11:00 05:00 WBC 8.0 RBC 3.78 L Hgb 10.9 L Hct 36.6 L MCV 96.8 MCH 28.8 MCHC 29.8 L RDW Std Deviation 47.5 H RDW Coeff of Deonte 13.3 Plt Count 216 MPV 9.3 Immature Gran % (Auto) 0.600 Neut % (Auto) 67.6 Lymph % (Auto) 21.4 Person % (Auto) 9.0 Eos % (Auto) 1.2 Baso % (Auto) 0.2 Absolute Neuts (auto) 5.4 Absolute Lymphs (auto) 1.72 Nucleated RBC % 0 PT 12.5 INR 1.0 APTT 28.4 Sodium Potassium Chloride Carbon Dioxide Anion Gap BUN Creatinine Estim Creat Clear Calc Est GFR (MDRD) Af Amer Est GFR (MDRD) Non-Af BUN/Creatinine Ratio Glucose Lactic Acid Calcium Total Bilirubin AST ALT Alkaline Phosphatase Troponin I B-Natriuretic Peptide 160.8 H Total Protein Albumin Globulin Albumin/Globulin Ratio 12/10/20 05:00 WBC RBC Hgb Hct MCV MCH MCHC RDW Std Deviation RDW Coeff of Deonte Plt Count MPV Immature Gran % (Auto) Neut % (Auto) Lymph % (Auto) Person % (Auto) Eos % (Auto) Baso % (Auto) Absolute Neuts (auto) Absolute Lymphs (auto) Nucleated RBC % PT INR APTT Sodium 145 Potassium 3.4 L Chloride 103 Carbon Dioxide 40.0 H Anion Gap 2 L BUN 11 Creatinine 0.68 Estim Creat Clear Calc 43.77 Est GFR (MDRD) Af Amer 110 Est GFR (MDRD) Non-Af 91 BUN/Creatinine Ratio 16.1 Glucose 90 Lactic Acid Calcium 9.1 Total Bilirubin AST ALT Alkaline Phosphatase Troponin I B-Natriuretic Peptide Total Protein Albumin Globulin Albumin/Globulin Ratio Micro: Microbiology 12/09/20 11:00 Mucosa - Nasopharyngeal SARS-CoV-2 Antigen (Rapid) - Final ABG Data ABG results: ABG 12/09/20 10:35 Specimen Type ART Sample Site R Radial pH 7.17 L* Bicarbonate Actual 37.1 H Total CO2 40 Base Excess 9 H O2 Saturation 100 H O2 % 70 ABG pCO2 102.1 H* ABG pO2 226 H Royal Test Positive O2 Delivery Device BiPAP Crit Call To/Read Back Yes Blood Gas Notified Whom ug Radiography Diagnostic Testing: Radiology Impression Chest X-Ray 12/09/20 10:20 IMPRESSION: Hyperinflation. The lungs are clear. Electronically Signed: Vinny Mcghee MD at 11:30 EDT , Service support , Brain CT 12/09/20 11:15 IMPRESSION: Chronic involutional changes of the brain. Stable examination. Electronically Signed: Vinny Mcghee MD at 11:28 EDT , Service support , Physical Exam Const Constitutional Narrative: Oriented x3. Off BiPAP. HEENT normocephalic, head/scalp atraumatic and hearing grossly normal bilaterally Eyes PERRL, EOMs intact bilaterally, conjunctivae normal and no scleral icterus Neck full ROM and no lymphadenopathy Chest inspection of chest normal Resp normal respiratory effort, normal air movement and no retractions Resp Narrative: Decreased breath sounds bilateral, moderately dyspneic and tachypneic. Cardio regular rate, regular rhythm, S1 normal heart sound, S2 normal heart sound, no murmurs, no rub and no gallops GI normal to inspection, nondistended, normoactive bowel sounds Extremity normal to inspection, full ROM and normal capillary refill Skin no rashes or lesions noted Neuro oriented x3 and CN's II-XII intact bilaterally Psych mental status grossly normal and thought process normal Charges/Coding Visit Charges Inpatient E&M: 35085 Subs Hosp L2
[2020-12-10] MEDS: Ipratropium/Albuterol Sulfate 3 ML AMPUL.NEB INHALATION (07:31)
--- NOTE | 2020-12-10 09:06 | DCINST_ITS ---
Discharge Instructions Diet Discharge Diet: Low fat / Low cholesterol Activity Discharge Activity: Return to Normal Activity Dressing / Incision Call your doctor if you observe: Fever of 101 or Higher, Shortness of breath, Dizziness, Fainting spells, Chest pain, Increased palpitations (irregular heartbeat) and Uncontrolled pain Follow Up Care Test Results: Test results from this visit will be discussed in further detail at your follow-up appointment, if applicable. Discharge Plan Admission Admit Date/Time: 12/09/20 12:21 Primary Reason for Your Visit: Acute on chronic hypercapnic respiratory failure Attending Provider: Yelena Nichols Primary Care Provider: Maryam Pineda Consulting Providers: Mike Duarte ; Anurag Flannery ; Ema Stevens [employer] Discharge Orders/Prescriptions Prescriptions: Continued [id number] 100-62.5-25 mcg blister with device 1 inh inhalation DAILY RF: 0 carvedilol 12.5 mg Tablet 12.5 mg PO BID RF: 0 spironolactone 25 mg Tablet 12.5 mg PO DAILY RF: 0 pantoprazole [Protonix] 40 mg Tablet,Delayed Release (Dr/Ec) 40 mg PO DAILY RF: 0 ropinirole 0.5 mg Tablet 0.5 mg PO QHS RF: 0 buspirone 7.5 mg Tablet 7.5 mg PO BID RF: 0 folic acid 1 mg Tablet 1 mg PO DAILY RF: 0 aspirin 81 mg Tablet 81 mg PO DAILY RF: 0 duloxetine 60 mg Capsule,Delayed Release(Dr/Ec) 60 mg PO DAILY RF: 0 cholecalciferol (vitamin D3) [Vitamin D3] 25 mcg (1,000 unit) Tablet 25 mcg PO DAILY RF: 0 potassium chloride 20 mEq Tablet Extended Release 20 meq PO DAILY RF: 0 zolpidem [Ambien] 5 mg tablet 5 mg PO QHS PRN (Reason: insomnia) Qty: 30 RF: 0 Referrals / Follow Up: Mike Daurte MD [STAFF PHYSICIAN] - Maryam Pineda MD [Primary Care Provider] - Disposition Disposition (needs filled in before D/C Order can be placed): Home, self care
[2020-12-10] MEDS: Spironolactone 25 MG Tablet 12.5 MG PO (09:13)
[2020-12-10] MEDS: Aspirin 81 MG TAB.CHEW PO (09:13)
[2020-12-10] MEDS: Folic Acid 1 MG Tablet PO (09:13)
[2020-12-10] MEDS: busPIRone 15 MG TABLET 7.5 MG PO (09:13)
[2020-12-10] MEDS: Carvedilol 12.5 MG Tablet PO (09:14)
[2020-12-10] MEDS: Pantoprazole Sodium 40 MG Tablet PO (09:14)
--- NOTE | 2020-12-10 09:15 | CASEMGMT ---
FINESSE LALA Assessment: Face to Face with pt for initial transition planning/care coordination assessment. FINESSE LALA introduced self and role at [facility], pt voices understanding and consents to assessment. Pt is A/O x4 and answers all questions appropriately at this time. Care providers, pharmacy, and demographics verified/updated. Admitting Dx: acute on chronic hypercapnic resp failure PCP: Miriam Specialists: dm Duarte; Ethan cardio Preferred Pharmacy: [facility] Insurance: [facility], [place] Prescription Benefit: No, pt states she just received [employer] benefits this month and has not used it, nor is she aware of the number. LW/HPOA: Pt denies having a LW/DPOA. LNOK: Oscar aZc, sig other; Ameena Zhang, dtr Living Arrangements: Pt lives with sig other in a two story house with 4 steps to enter with rail. Pt states she is I in ADL's and denies concerns at home. Transportation: Pt drives self and denies concerns with transportation. DME/HHC/SNF: Pt states she has a Bipap and O2 at home. States she uses [facility]. Pt states her Bipap is not working properly. She states it wakes her up because it leaks and she is drenched. She states it also has bells ringing. Pt states she has had [facility] in the past and denies any SNF stays. TC to [facility], spoke with Dee who verifies that pt rx is 2L NC continuous. She also states pt was in today with the concerns of the Bipap. She states the clinical team is going to follow up on this. She is aware of patient complaints with the bipap. Pt states no concerns with going home at time of dc. She does not feel that she needs HHC. Pt states no further concerns/needs. Advised pt to ask CM if any further question/concerns/needs arise, voices understanding. Pt Goal: Home Plan: Home
--- NOTE | 2020-12-10 12:01 | PCM.DC.SUM ---
Providers Date of Admission: 12/09/20 Primary Care Physician: Dr. Maryam Pineda MD Consultations 12/09/20 13:04 Consult: Manager Technical Training / Pulmonary Medicine Routine Consulting Provider: Pulmonary Medicine [facility] [place] Reason for Consult: Acute on chronic hypercapnic respiratory failure, encephalopathy EMERGENT Consult: No MD Notified: Yes Date Notified:: 12/09/20 Time Notified: 12:22 Method of Notification: face to face Method of Consult:: In-Person Reason For Visit: ACUTE ON CHRONIC HYPERCAPNIC RESPIRATORY FAILURE, Diagnosis Discharge Diagnosis (1) Acute encephalopathy: Status: Acute Code(s): G93.40 - Encephalopathy, unspecified (2) Acute and chronic respiratory failure with hypercapnia: Status: Chronic Code(s): J96.22 - Acute and chronic respiratory failure with hypercapnia (3) Chronic systolic (congestive) heart failure: Status: Chronic Code(s): I50.22 - Chronic systolic (congestive) heart failure (4) Hyperlipidemia: Status: Chronic Code(s): E78.5 - Hyperlipidemia, unspecified Qualifiers: Hyperlipidemia type: unspecified Qualified Code(s): E78.5 - Hyperlipidemia, unspecified (5) COPD (chronic obstructive pulmonary disease): Status: Chronic Code(s): J44.9 - Chronic obstructive pulmonary disease, unspecified Qualifiers: COPD type: unspecified COPD Qualified Code(s): J44.9 - Chronic obstructive pulmonary disease, unspecified (6) TIO (obstructive sleep apnea): Status: Chronic Code(s): G47.33 - Obstructive sleep apnea (adult) (pediatric) Medications at Discharge Home Medications aspirin 81 mg PO DAILY 11/03/20 buspirone 7.5 mg PO BID 11/03/20 carvedilol 12.5 mg PO BID 11/03/20 cholecalciferol (vitamin D3) [Vitamin D3] 25 mcg PO DAILY 11/03/20 duloxetine 60 mg PO DAILY 11/03/20 folic acid 1 mg PO DAILY 11/03/20 pantoprazole [Protonix] 40 mg PO DAILY 11/03/20 potassium chloride 20 meq PO DAILY 11/03/20 ropinirole 0.5 mg PO QHS 11/03/20 spironolactone 12.5 mg PO DAILY 11/03/20 zolpidem [Ambien] 5 mg PO QHS PRN #30 tab 11/04/20 fluticasone fur. 100 mcg-umeclid 62.5 mcg-vilant 25 mcg inhalat.powder 1 inh INHALATION DAILY ea 11/19/20 Hospital Course Operations None Procedures None Summary of Care Provided Minutes Spent on Discharge: 32 Hospital Course: This is a 65 years old female patient presented to the emergency room by squad because she was found by her unresponsive, found to have highly elevated PCO2 and was admitted for acute on chronic hypercapnic respiratory failure due to noncompliance and acute metabolic encephalopathy due to CO2 narcosis. This patient had a history of chronic COPD and chronic respiratory failure, has been on AVAPS at home and apparently, she is not compliant with it. Patient claimed that she has been using her machine at home appropriately. Upon arrival to ED, patient was unresponsive. ABG revealed pH of 7.17, PCO2 of 102 and PO2 of 226. Her routine blood work is unremarkable. Chest x-ray showed no acute findings. EKG reviewed showed no acute ischemic changes. Troponin was negative. Patient was started immediately on BiPAP and shortly after, she woke up and she was alert. She stated that she is not sure what happened. CT scan brain done and showed no acute findings. She was admitted to ICU, was maintained on BiPAP and started on bronchodilators. There was no evidence of acute COPD exacerbation. No IV steroids or antibiotics given. Her condition dramatically improved after being on BiPAP overnight. On the day of discharge, she remained stable on 2 L. She had no complaints. Pulmonary consulted and recommended to have the medical to assess the AVAPS machine at home and make sure it works properly. Patient discharged home in a stable medical condition after traumatic improvement overnight, continued on her previous home medications without any changes including bronchodilators, plan to follow-up with pulmonology and PCP as outpatient. Physical Exam HEENT normocephalic, head/scalp atraumatic and moist oral mucous membranes Eyes PERRL, EOMs intact bilaterally, conjunctivae normal and no scleral icterus General Eye: normal appearance of both eyes Periorbital: periorbital findings normal Neck no lymphadenopathy, supple, no meningeal signs, no JVD and no carotid bruits General: trachea midline Thyroid: thyroid normal Resp normal air movement Resp Narrative: Decreased sounds bilateral, otherwise clear. Auscultation: Negative for crackles, rales, rhonchi or wheezes Cardio regular rate, regular rhythm, S1 normal heart sound, S2 normal heart sound, no murmurs and no JVD Peripheral Pulses: pulses 2+ throughout GI normal to inspection, nondistended, normoactive bowel sounds, soft to palpation, non-tender and non-distended; Negative for hepatosplenomegaly Auscultation: normoactive bowel sounds Extremity normal to inspection, full ROM and no clubbing, cyanosis or edema Skin no rashes or lesions noted, no wounds and no petechiae Neuro CN's II-XII intact bilaterally and moves all extremities Sensorium / Orientation: alert, oriented to person and oriented to time Speech: speech normal Motor Exam: strength 5/5 throughout Psych mental status grossly normal, affect normal and denies hallucinations Weight / BMI Weight Weight: 170 lb 6.677 oz Body Mass Index (BMI) 30.8 ABG / Lab / Microbiology Data Result Diagrams: 12/10/20 05:00 12/10/20 05:00 Laboratory: Laboratory Results - last 24 hr 12/09/20 12/10/20 12/10/20 11:00 05:00 05:00 WBC 8.0 RBC 3.78 L Hgb 10.9 L Hct 36.6 L MCV 96.8 MCH 28.8 MCHC 29.8 L RDW Std Deviation 47.5 H RDW Coeff of [place] 13.3 Plt Count 216 MPV 9.3 Immature Gran % (Auto) 0.600 Neut % (Auto) 67.6 Lymph % (Auto) 21.4 [place] % (Auto) 9.0 Eos % (Auto) 1.2 Baso % (Auto) 0.2 Absolute Neuts (auto) 5.4 Absolute Lymphs (auto) 1.72 Nucleated RBC % 0 PT 12.5 INR 1.0 APTT 28.4 Sodium 145 Potassium 3.4 L Chloride 103 Carbon Dioxide 40.0 H Anion Gap 2 L BUN 11 Creatinine 0.68 Estim Creat Clear Calc 43.77 Est GFR (MDRD) Af Amer 110 Est GFR (MDRD) Non-Af 91 BUN/Creatinine Ratio 16.1 Glucose 90 Calcium 9.1 Microbiology: Microbiology 12/09/20 11:00 SARS-CoV-2 Antigen (Rapid) - Final Mucosa - Nasopharyngeal Microbiology 12/09/20 11:00 Mucosa - Nasopharyngeal SARS-CoV-2 Antigen (Rapid) - Final D/C Instructions Discharge Diet: Low fat / Low cholesterol Call your doctor if you observe: Fever of 101 or Higher, Shortness of breath, Dizziness, Fainting spells, Chest pain, Increased palpitations (irregular heartbeat) and Uncontrolled pain Meaningful Use Info Meaningful Use Diagnoses (Choose all that apply): None applicable Discharge Plan Admission Admit Date/Time: 12/09/20 12:21 Primary Reason for Your Visit: Acute on chronic hypercapnic respiratory failure Attending Provider: Yelena Nichols Primary Care Provider: Maryam Pineda Consulting Providers: Mike Duarte ; Anurag Flannery ; Ema Stevens [employer] Instructions Patient Instructions: Continuous Positive Air Pressure (CPAP) Discharge Orders/Prescriptions Prescriptions: Continued lusypagaihj-okxcmmywz-cnyootrs 100-62.5-25 mcg blister with device 1 inh inhalation DAILY RF: 0 carvedilol 12.5 mg Tablet 12.5 mg PO BID RF: 0 spironolactone 25 mg Tablet 12.5 mg PO DAILY RF: 0 pantoprazole [Protonix] 40 mg Tablet,Delayed Release (Dr/Ec) 40 mg PO DAILY RF: 0 ropinirole 0.5 mg Tablet 0.5 mg PO QHS RF: 0 buspirone 7.5 mg Tablet 7.5 mg PO BID RF: 0 folic acid 1 mg Tablet 1 mg PO DAILY RF: 0 aspirin 81 mg Tablet 81 mg PO DAILY RF: 0 duloxetine 60 mg Capsule,Delayed Release(Dr/Ec) 60 mg PO DAILY RF: 0 cholecalciferol (vitamin D3) [Vitamin D3] 25 mcg (1,000 unit) Tablet 25 mcg PO DAILY RF: 0 potassium chloride 20 mEq Tablet Extended Release 20 meq PO DAILY RF: 0 zolpidem [Ambien] 5 mg tablet 5 mg PO QHS PRN (Reason: insomnia) Qty: 30 RF: 0 Referrals / Follow Up: Mike Duarte MD [STAFF PHYSICIAN] - 12/23/20 1:45 pm Maryam Pineda MD [Primary Care Provider] - Disposition Disposition (needs filled in before D/C Order can be placed): Home, self care Charges/Coding Visit Charges Inpatient E&M: 23471 Disch Hosp
--- NOTE | 2020-12-11 12:24 | CASEMGMT ---
FINESSE LALA Discharge Follow Up Phone Call: MICHAEL: Piter Str[employer]: 3 Call Date: 12/11/20 Discharge Date: 12/10/20 Time of Call:1220 Duration:3 min Admitting Dx: acute on chronic hypercapnic respiratory failure FINESSE LALA completed follow up phone call after recent hospitalization. Pt states she is doing well. She states she has an appt set up with on 12/23/20 and she is going to set up an appt with . She states her BIPAP was fixed from the office, no one had to come from the home. She did not experience any leaks or bells ringing lastnight. Pt denies questions/concerns regarding her dc instructions or medications.
== END 2020-12-10 11:00 | disposition home or self-care (01) | DRG 189 ==
LOC: ED 12:53 → ICU 13:02
PROVIDERS: Admitting Provider Hospitalist; Emergency Provider Emergency Medicine; PCP Internal Medicine; Visit Provider Hospitalist
DX: J96.22 Acute and chronic respiratory failure with hypercapnia (principal); G93.41 Metabolic encephalopathy; I50.22 Chronic systolic (congestive) heart failure; E87.2 Acidosis; I11.0 Hypertensive heart disease with heart failure; E78.5 Hyperlipidemia, unspecified; J44.9 Chronic obstructive pulmonary disease, unspecified; G47.33 Obstructive sleep apnea (adult) (pediatric); Z99.81 Dependence on supplemental oxygen; Z91.19 Patient's noncompliance with other medical treatment and regimen; K59.00 Constipation, unspecified; R23.0 Cyanosis; F41.9 Anxiety disorder, unspecified; F32.9 Major depressive disorder, single episode, unspecified; Z98.41 Cataract extraction status, right eye; Z98.42 Cataract extraction status, left eye; Z86.718 Personal history of other venous thrombosis and embolism; Z87.891 Personal history of nicotine dependence
CPT/HCPCS: 36556; 36600; 51702; 70450; 71045; 80048; 80053; 82803; 83605; 83880; 84484; 85025; 85610; 85730; 87426; 93005; 94002; 94003; 94640; 99285; A4216; C1751

== ENCOUNTER 2021-06-15 16:38 | Inpatient (IN) | payer MEDICARE, SELFPAY ==
[2021-06-15] VITALS (13 sets, daily range): BP systolic 92–132; BP diastolic 41–69; PULSE 72–97; RESP 13–29; TEMP 36–37; O2SAT 84–100; BMI 60.5; BMI 26.6; BMI 27.4
--- NOTE | 2021-06-15 16:47 | NURSING ---
STROKE ALERT CALLED
--- NOTE | 2021-06-15 16:48 | CT_ITS ---
We are attempting to reach an attending provider to discuss findings. An addendum with communication details will be sent when the communication is complete. EXAM: CT HEAD WITHOUT INTRAVENOUS CONTRAST : 1955 CLINICAL INDICATION: Neuro deficit, acute, stroke suspected TECHNIQUE: Multiple axial images were obtained of the head without intravenous contrast. This CT exam was performed using one or more of the following dose reduction techniques: automated exposure control, adjustment of the mA and/or kV according to patient size, and/or use of iterative reconstruction technique. This report was created using [employer] report [employer] technology. COMPARISON: 12/09/2020 FINDINGS: BRAIN AND EXTRA-AXIAL SPACES: There is stable encephalomalacia in the right occipital lobe and left parietal lobe from remote infarcts. There is minimal hypoattenuation in the periventricular white matter. No intra- or extra-axial hemorrhage. No intracranial mass or mass effect. Posterior fossa structures are unremarkable. No hydrocephalus. Basal cisterns are patent. BONES/JOINTS: Unremarkable. No discrete lytic or blastic abnormalities. SINUSES: Unremarkable as visualized. Clear. MASTOID AIR CELLS: Unremarkable. Clear. ORBITS: Visualized globes, extraocular muscles, optic nerves and retrobulbar fat appear unremarkable. CT/STROKE Brain/Head without Cont IMPRESSION: 1. No acute intracranial abnormality. There has been no change from the reference examination. 2. Stable bilateral remote infarcts. 3. ASPECTS score 10 Individualized dose optimization techniques were used for this CT. at 1713 Reported and signed by: Garrison Yoo MD Electronically Signed: Garrison Yoo MD at 17:12 EST Tel , Service support ,
--- NOTE | 2021-06-15 16:48 | EKG12_ITS ---
Test Reason : STROKE Blood Pressure : / mmHG Vent. Rate : 087 BPM Atrial Rate : 087 BPM P-R Int : 130 ms QRS Dur : 082 ms QT Int : 378 ms P-R-T Axes : 072 053 053 degrees QTc Int : 454 ms Normal sinus rhythm Normal ECG Confirmed by RUSS MENDES, ANALY ([id number]), editor index NICOLE ARANGO ([id number]) on 06/20/2021 1:09:47 PM Referred By: Confirmed By:ANALY SOLANO MD
--- NOTE | 2021-06-15 16:48 | RAD_ITS ---
EXAM: XR CHEST, 1 VIEW : 1955 CLINICAL INDICATION: Neuro deficit, acute, stroke suspected TECHNIQUE: Frontal view of the chest. This report was created using [employer] report generation technology. COMPARISON: 12/09/2020 FINDINGS: LUNGS AND PLEURAL SPACES: Unremarkable. No consolidation or edema. No pneumothorax. No effusion. HEART: Unremarkable. Cardiac silhouette not enlarged. MEDIASTINUM: Central airways and mediastinal contour are unremarkable. BONES/JOINTS: Unremarkable. SOFT TISSUES: Unremarkable. RAD/Chest 1 View IMPRESSION: No radiographic evidence of acute cardiopulmonary disease. at 1805 Reported and signed by: Garrison Yoo MD Electronically Signed: Garrison Yoo MD at 18:04 EST Tel , Service support ,
--- NOTE | 2021-06-15 16:49 | CT_ITS ---
We are attempting to reach an attending provider to discuss findings. An addendum with communication details will be sent when the communication is complete. EXAM: CT ANGIOGRAPHY HEAD AND NECK WITH INTRAVENOUS CONTRAST : 1955 CLINICAL INDICATION: Neuro deficit, acute, stroke suspected TECHNIQUE: [place]/head and neck CT angiography protocol performed with intravenous contrast. This CT exam was performed using one or more of the following dose reduction techniques: automated exposure control, adjustment of the mA and/or kV according to patient size, and/or use of iterative reconstruction technique. This report was created using [employer] report [employer] technology. MIP reconstructed images were created and reviewed. CONTRAST: IV 100mL [id number] COMPARISON: None. FINDINGS: HEAD: RIGHT ANTERIOR CEREBRAL ARTERY: Unremarkable. No significant stenosis at the visualized segments. Anterior communicating artery is present. No aneurysm. RIGHT MIDDLE CEREBRAL ARTERY: Unremarkable. No significant stenosis at the visualized segments. No aneurysm. RIGHT POSTERIOR CEREBRAL ARTERY: Unremarkable. No occlusion or significant stenosis. No aneurysm. LEFT ANTERIOR CEREBRAL ARTERY: Unremarkable. No significant stenosis at the visualized segments. No aneurysm. LEFT MIDDLE CEREBRAL ARTERY: Unremarkable. No significant stenosis at the visualized segments. No aneurysm. LEFT POSTERIOR CEREBRAL ARTERY: Unremarkable. No occlusion or significant stenosis. No aneurysm. BASILAR ARTERY: Unremarkable. No significant stenosis. No aneurysm. GREAT VESSELS OF AORTIC ARCH: Unremarkable. Normal anatomy, patent. OTHER VASCULATURE: No vascular malformation. NECK: RIGHT COMMON CAROTID ARTERY: Unremarkable. No significant stenosis. No dissection or occlusion. RIGHT INTERNAL CAROTID ARTERY: Unremarkable. No significant stenosis. No dissection or occlusion. RIGHT EXTERNAL CAROTID ARTERY: Unremarkable. No occlusion. RIGHT VERTEBRAL ARTERY: Unremarkable. No significant stenosis. No dissection or occlusion. LEFT COMMON CAROTID ARTERY: Unremarkable. No significant stenosis. No dissection or occlusion. LEFT INTERNAL CAROTID ARTERY: Unremarkable. No significant stenosis. No dissection or occlusion. LEFT EXTERNAL CAROTID ARTERY: Unremarkable. No occlusion. LEFT VERTEBRAL ARTERY: Unremarkable. No significant stenosis. No dissection or occlusion. LUNG APICES: Unremarkable as visualized. SOFT TISSUES: Unremarkable. CAROTID STENOSIS REFERENCE USING NASCET CRITERIA: % ICA stenosis = (1 - narrowest ICA diameter/diameter of distal cervical ICA) x 100. Moderate - 50-69% stenosis. Severe - 70-94% stenosis. Near occlusion - 95-99% stenosis. Occluded - 100% stenosis. CT/STROKE CTA Head AND Neck W/Con IMPRESSION: Negative CTA carotid and CTA brain. Individualized dose optimization techniques were used for this CT. at 1725 Reported and signed by: Garrison Yoo MD Electronically Signed: Garrison Yoo MD at 17:24 EST Tel , Service support ,
--- NOTE | 2021-06-15 16:51 | EDS_ITS ---
HPI History of Present Illness Chief Complaint: Neuro S/Sx Informant: patient Onset/Context/Timing Onset: Today and Hours (Onset 0800) Context: Sudden Onset Timing: Continuous Quality and Location: Positive for Right Arm Parasthesia and Right Leg Parasthesia Current Severity: Mild Maximum Severity: Mild Worsened by: Nothing Relieved by: Nothing no bed Associated Symptoms Associated Symptoms: Negative for Headache, Nausea, Vomiting and Chest Pain Narrative Narrative: Patient presents because right-sided numbness. Onset 0800. Patient's had prior stroke. She has had both a hemorrhagic and and ischemic stroke. She denies headache. She reports blurred vision. She complains of her right leg being totally different. She is having trouble walking. She is not on an anticoagulant. She is a former smoker. She denies double vision. Denies ringing or ears decreased hearing. She denies slurred speech. She denies cardiac respiratory symptoms. She denies GI symptoms. She denies urologic symptoms. Prior similar symptoms: Yes Recent Illness/Hospitalization: Yes [facility] [place] Medical History Alcohol abuse Anxiety Anxiety and depression Chronic anemia Chronic systolic (congestive) heart failure CO2 narcosis COPD (chronic obstructive pulmonary disease) Daytime hypersomnia Essential (primary) hypertension Fall GERD (gastroesophageal reflux disease) Head concussion Hemorrhagic cerebrovascular accident (CVA) (02/09/17) History of DVT of lower extremity (02/11/17) History of non-ST elevation myocardial infarction (NSTEMI) (02/03/17) Hypercarbia Hyperlipidemia Insomnia Ischemic cerebrovascular accident (CVA) (02/06/17) Non-ischemic cardiomyopathy Non-rheumatic mitral regurgitation TIO (obstructive sleep apnea) Respiratory insufficiency Secondary pulmonary arterial hypertension Stroke TIA (transient ischemic attack) (10/25/19) Home Medications aspirin 81 mg PO DAILY 11/03/20 [History Last Taken Unknown] buspirone 7.5 mg PO BID 11/03/20 [History Last Taken Unknown] carvedilol 12.5 mg PO BID 11/03/20 [History Last Taken Unknown] cholecalciferol (vitamin D3) [Vitamin D3] 25 mcg PO DAILY 11/03/20 [History Last Taken Unknown] duloxetine 60 mg PO DAILY 11/03/20 [History Last Taken Unknown] folic acid 1 mg PO DAILY 11/03/20 [History Last Taken Unknown] pantoprazole [Protonix] 40 mg PO DAILY 11/03/20 [History Last Taken Unknown] potassium chloride 20 meq PO DAILY 11/03/20 [History Last Taken Unknown] ropinirole 0.5 mg PO QHS 11/03/20 [History Last Taken Unknown] spironolactone 12.5 mg PO DAILY 11/03/20 [History Last Taken Unknown] zolpidem [Ambien] 5 mg PO QHS PRN #30 tab 11/04/20 [Rx Last Taken Unknown] albuterol sulfate 90 mcg/actuation aerosol inhaler 2 puff INHALATION Q4H PRN #18 g 12/23/20 [Rx Last Taken Unknown] fluticasone fur. 100 mcg-umeclid 62.5 mcg-vilant 25 mcg inhalat.powder 1 inh INHALATION DAILY #60 ea 12/23/20 [Rx Last Taken Unknown] Allergy/AdvReac Type Severity Reaction Status Date / Time tetanus and diphtheria Allergy Hives Verified 06/15/21 16:38 toxoids [tetanus & diphtheria toxoids] Family History Sister Cancer lung Father Cancer lung Mother Cancer lung Surgical History H/O: section History of bilateral cataract extraction History of cholecystectomy History of lumpectomy Hx of appendectomy Social History (Updated 06/15/21 @ 16:[address] Kimo Sims MD) household members: none Smoking Status: Former smoker how long ago did patient quit smokin, 1pk/day second hand exposure: Yes alcohol intake: former substance use type: does not use what type of physical activity do you participate in: walking frequency: daily ROS ROS ED Constitutional Constitutional ED: Denies chills, fever(s), subjective, sweats or weakness Eyes Eyes: Reports blurry vision; Denies change in vision or diplopia ENT ENT ED: Denies ear pain, rhinorrhea or sore throat Cardiovascular Cardiovascular: Denies chest pain, palpitations, paroxysmal nocturnal dyspnea or racing heartbeat Respiratory/Chest Respiratory/Chest: Denies cough, dyspnea, dyspnea on exertion, paroxysmal nocturnal dyspnea or sputum Gastrointestinal Gastrointestinal: Denies abdominal pain, nausea or vomiting Genitourinary Genitourinary ED: Denies dysuria, hematuria or urinary frequency Musculoskeletal Musculoskeletal: Denies arthralgias, myalgias or neck pain Integumentary Denies abscess, Abrasions or rash Neurologic Neurologic: Denies headache(s), paresthesias or weakness Psychiatric Psychiatric: Denies anxiety, depression or suicidal thoughts Endocrine Endocrinology: Denies polydipsia, polyphagia or polyuria Hematologic/Lymphatic Hematologic/Lymphatic: Denies easy bleeding, easy bruising or lymphadenopathy Allergic/Immunologic Allergic/Immunologic ED: Denies urticaria EXAM Physical Exam Const Vital Signs: 06/15/21 16:39 06/15/21 16:43 06/15/21 17:09 Temperature 96.8 F L Temperature Source Temporal Pulse Rate 88 97 94 Respiratory Rate 16 29 H 20 H Blood Pressure 132/57 H 132/66 H 124/65 H Blood Pressure Mean 82 88 84 Pulse Ox 100 95 92 Oxygen Delivery Method Room Air Room Air Room Air Positive well nourished and well developed General Appearance ED: well developed HEENT Reports TM's clear and moist mucous membranes; Denies dry mucous membranes atraumatic; Negative for trauma Tympanic Membrane ED: Yes TM's clear Mouth ED: No dry mucous membranes Mouth: No dry mucous membranes Eyes PERRL and EOMs intact bilaterally General Eye ED: Negative for pale conjunctiva or scleral icterus Neck no lymphadenopathy, supple and no JVD General: Negative for tenderness Chest Wall inspection of chest normal and palpation of chest normal Resp normal respiratory effort and clear to auscultation bilaterally Auscultation: Negative for rales, rhonchi, wheezes or diminished lung sounds Cardio no murmurs Rate: regular rate Rhythm: regular rhythm Heart Sounds: S1 normal and S2 normal GI normal to inspection, nondistended, normoactive bowel sounds, soft to palpation and non-tender Back/Spine no CVA tenderness Cervical Spine: Negative for cervical spine tenderness Thoracic Spine / Upper Back: Negative for thoracic spinal tenderness Lumbar Spine / Lower Back: Negative for lumbar spinal tenderness Extremity normal to inspection General Extremety ED: Negative for deformity or tenderness General Extremity: Negative for deformity Neuro No oriented x3 and CN's II-XII intact bilaterally [place] Coma Scale: document GCS findings Spontaneous Obeys Commands Oriented 15 Sensorium / Orientation: confused; Negative for alert Speech: speech normal Gait (Neuro): Negative for normal gait Motor Exam: Negative for strength 5/5 throughout Psych mental status grossly normal Skin no wounds General Skin Exam: Negative for jaundice Lesions: no lesions Rashes: no rashes STROKE Vital Signs/Narrative: Vital Signs Temp Pulse Resp BP Pulse Ox 06/15/21 17:09 94 20 H 124/65 H 92 06/15/21 16:43 97 29 H 132/66 H 95 06/15/21 16:39 96.8 F L 88 16 132/57 H 100 NIHSS Initial: 1a Level of Consciousness: 0 1b LOC Questions (Score 2 if aphasic/stupor): 2 1c LOC Commands (Only score 1st attempt): 0 2 Best Gaze (If aphasic, use reflexive mvmts.): 0 3 Visual: 0 4 Facial Palsy: 0 5 Motor Arm Right (UN = amputation/fusion): 0 5 Motor Arm Left: 0 6 Motor Leg Right: 1 6 Motor Leg Left: 0 7 Limb ataxia (Only + if out of proportion): 0 8 Sensory (Aphasia/stupor=0 or 1, coma=2): 1 9 Best Language: 0 10 Dysarthria (mute, coma=2, intubated=UN): 0 11 Extinction and Inattention (only scored if +): 1 Total Score: 5 MDM MDM MDM Narrative Medical decision making narrative: Patient presents with strokelike symptoms. Onset at 0800. Stroke team was called. CT of the head without contrast reveals no acute abnormality. CTA per radiologist was negative. Hospitalist was paged. Hospitalist present seeing patient for admission for CVA work-up Lab Data Attestation: I reviewed the patient's lab results. Labs: Laboratory Results - last 24 hr 06/15/21 06/15/21 06/15/21 16:50 16:50 16:50 WBC 10.5 RBC 4.36 Hgb 12.7 Hct 40.1 MCV 92.0 MCH 29.1 MCHC 31.7 L RDW Std Deviation 44.5 H RDW Coeff of Deonte 13.1 Plt Count 244 MPV 10.0 Immature Gran % (Auto) 0.600 Neut % (Auto) 70.2 H Lymph % (Auto) 20.9 [place] % (Auto) 6.6 Eos % (Auto) 1.4 Baso % (Auto) 0.3 Absolute Neuts (auto) 7.4 Absolute Lymphs (auto) 2.19 Nucleated RBC % 0 PT 12.8 INR 1.0 APTT 27.8 Sodium 141 Potassium 4.2 Chloride 102 Carbon Dioxide 36.0 H Anion Gap 3 L BUN 17 Creatinine 0.95 Estim Creat Clear Calc 48.19 Est GFR (MDRD) Af Amer 76 Est GFR (MDRD) Non-Af 62 BUN/Creatinine Ratio 17.9 Glucose 131 H Calcium 9.3 Troponin I High Sens 12 POC Glucose 06/15/21 17:24 WBC RBC Hgb Hct MCV MCH MCHC RDW Std Deviation RDW Coeff of [place]onte Plt Count MPV Immature Gran % (Auto) Neut % (Auto) Lymph % (Auto) [place] % (Auto) Eos % (Auto) Baso % (Auto) Absolute Neuts (auto) Absolute Lymphs (auto) Nucleated RBC % PT INR APTT Sodium Potassium Chloride Carbon Dioxide Anion Gap BUN Creatinine Estim Creat Clear Calc Est GFR (MDRD) Af Amer Est GFR (MDRD) Non-Af BUN/Creatinine Ratio Glucose Calcium Troponin I High Sens POC Glucose 115 H Radiography Diagnostic Testing: Clinical Impression(s) from Imaging Studies Brain CT 06/15/21 16:48 IMPRESSION: 1. No acute intracranial abnormality. There has been no change from the reference examination. 2. Stable bilateral remote infarcts. 3. ASPECTS score 10 Individualized dose optimization techniques were used for this CT. at 1713 Reported and signed by: Garrison Yoo MD Electronically Signed: Garrison Yoo MD at 17:12 EST Tel , Service support , ADDENDUM: 06/15/21 1724 IMPRESSION: 1. No acute intracranial abnormality. There has been no change from the reference examination. 2. Stable bilateral remote infarcts. 3. ASPECTS score 10 Individualized dose optimization techniques were used for this CT. at 1713 Reported and signed by: Garrison Yoo MD N.B. : The above Results were Read Back by Garrison Yoo MD to Kimo Sims MD, and understanding confirmed on 06/15/2021 17:17:38 (ET). Electronically Signed: Garrison Yoo MD at 17:12 EST Tel , Service support , Head/Neck CTA 06/15/21 16:49 IMPRESSION: Negative CTA carotid and CTA brain. Individualized dose optimization techniques were used for this CT. at 1725 Reported and signed by: Garrison Yoo MD Electronically Signed: Garrison Yoo MD at 17:24 EST Tel , Service support , ADDENDUM: 06/15/21 1735 IMPRESSION: Negative CTA carotid and CTA brain. Individualized dose optimization techniques were used for this CT. at 1725 Reported and signed by: Garrison Yoo MD N.B. : The above Results were Read Back by Garrison Yoo MD to Kimo Sims MD, and understanding confirmed on 06/15/2021 17:28:05 (ET). Electronically Signed: Garrison Yoo MD at 17:24 EST Tel , Service support , EKG Initial EKG: Attestation: I personally reviewed and interpreted this EKG as follows: Interpretation: Sinus Rhythm (The EKG is normal. Ventricular rate 87. SD interval 130 ms. QRS duration 82 ms. QT duration 378 ms. [place] is normal.) Stroke Documentation Questions Stroke Team Activated: Yes Reviewed Inclusion/Exclusion criteria: No IV Alteplase (t-PA) Administered: No No contraindications for IV Alteplase (t-PA) administration.: Yes Alteplase (t-PA) risks, benefits, alternative discussed: No Discharge Plan Triage Chief Complaint: Neuro S/Sx ED Provider: Kimo Sims Dx/Rx/DC Orders Clinical Impression: Acute CVA (cerebrovascular accident) Prescriptions: No Action albuterol sulfate [Ventolin HFA] 90 mcg/actuation HFA aerosol inhaler 2 puff inhalation Q4H PRN (Reason: shortness of breath or wheezing) Qty: 18 RF: 6 [id number] 100-62.5-25 mcg blister with device 1 inh inhalation DAILY Qty: 60 RF: 3 carvedilol 12.5 mg Tablet 12.5 mg PO BID RF: 0 spironolactone 25 mg Tablet 12.5 mg PO DAILY RF: 0 pantoprazole [Protonix] 40 mg Tablet,Delayed Release (Dr/Ec) 40 mg PO DAILY RF: 0 ropinirole 0.5 mg Tablet 0.5 mg PO QHS RF: 0 buspirone 7.5 mg Tablet 7.5 mg PO BID RF: 0 folic acid 1 mg Tablet 1 mg PO DAILY RF: 0 aspirin 81 mg Tablet 81 mg PO DAILY RF: 0 duloxetine 60 mg Capsule,Delayed Release(Dr/Ec) 60 mg PO DAILY RF: 0 cholecalciferol (vitamin D3) [Vitamin D3] 25 mcg (1,000 unit) Tablet 25 mcg PO DAILY RF: 0 potassium chloride 20 mEq Tablet Extended Release 20 meq PO DAILY RF: 0 zolpidem [Ambien] 5 mg tablet 5 mg PO QHS PRN (Reason: insomnia) Qty: 30 RF: 0 Primary Care Provider: Maryam Pineda Referrals: Maryam Pineda MD [Primary Care Provider] - Disposition Disposition: Acute Care Hospital [facility]
[2021-06-15 17:00] LABS: Absolute Lymphocyte Count 2.19 X10^3/uL (0.83-4.51); Absolute Neutrophil Count 7.4 X10^3/uL (2.0-7.7); Basophil# 0.03 X10^3/uL; Basophil% 0.3 % (0-1); Eosinophil# 0.15 X10^3/uL; Eosinophils% 1.4 % (0-5); Hematocrit 40.1 % (37-47); Hemoglobin 12.7 g/dL (12.0-15.0); Lymphocyte # 2.19 X10^3/ul (0.83-4.51); Lymphocyte % 20.9 % (19-41); Mean Corp Hgb Conc 31.7 g/dL (32-36); Mean Corpuscular Hgb 29.1 pg (27.0-32.0); Monocyte# 0.69 X10^3/uL; Monocyte% 6.6 % (0-10); NRBC Flagged by Analyzer 0 % (0-5); Neutrophil # 7.35 X10^3/uL (2.7-7.7); Neutrophil % 70.2 % (47-70); Platelet Count 244 K/mm3 (150-450); RBC Distribution Width CV 13.1 % (11.6-14.6); RBC Distribution Width SD 44.5 fl (35.1-43.9); Red Blood Count 4.36 M/mm3 (4.2-5.4); White Blood Count 10.5 K/mm3 (4.4-11.0)
[2021-06-15 17:08] LABS: Prothrombin Time (Protime)PT. 12.8 SECONDS (11.7-14.9)
[2021-06-15 17:09] LABS: Partial Thromboplast Time 27.8 Seconds (24.1-36.2)
--- NOTE | 2021-06-15 17:13 | NURSING ---
FAXED FACESHEET TO [facility]
[2021-06-15 17:19] LABS: Anion Gap 3 (5-15); BUN 17 mg/dL (7-18); BUN/Creat Ratio 17.9 RATIO (10-20); Calcium,Total 9.3 mg/dL (8.5-10.1); Chloride 102 mmol/L (98-107); Creatinine, Serum 0.95 mg/dL (0.55-1.02); EST Glomerular Filtration Rate 62 mL/min (>60); Est Glom Filt Rate - Afr Amer 76 mL/min (>60); Estimated Creatinine Clearance 48.19 ml/min; Glucose 131 mg/dL (74-106); Potassium 4.2 mmol/L (3.5-5.1); Sodium Level 141 mmol/L (136-145); Troponin-I HS 12 pg/mL (3.0-54.0)
[2021-06-15 17:30] LABS: Bedside Glucose 115 mg/dL (70-110)
--- NOTE | 2021-06-15 17:45 | NURSING ---
PCU CVA TY
[2021-06-15] MEDS: Acetaminophen 500 MG Tablet 1000 MG PO (18:47)
--- NOTE | 2021-06-15 18:48 | ECHOCS_ITS ---
Reason For Study: TIA/STROKE Procedure This was a 2D Doppler, Color Flow transthoracic echocardiogram. The study was technically difficult. Contrast injection was performed. Exam performed portable in patient room. Left Ventricle Normal LV size. The estimated ejection fraction is 37 %. Moderate segmental systolic dysfunction (see wall motion). [place] : Severely Hypokinetic. Mid-Anterior : Hypokinetic. Mid-anteroseptal : Hypokinetic. There are regional wall motion abnormalities as specified. The rest of the wall segments are normal. Right Ventricle Normal RV size. Normal systolic function. Atria Normal left atrium. Normal right atrium. Bubble contrast study negative for right to left interatrial shunt. Mitral Valve Normal mitral valve. Tricuspid Valve Normal tricuspid valve. Aortic Valve The aortic valve is not well visualized. Pulmonic Valve Normal pulmonic valve. Great Vessels Normal aortic root. The pulmonary artery is normal size. Normal inferior vena cava. Pericardium/Pleural No pericardial effusion. Medication Diluted definity 3.0ml given slow IV push to enhance endocardial definition. Performed a rapid injection of agitated mix of 9 cc saline and 1cc air to assess for atrial septal defect. MMode/2D Measurements & Calculations LVIDd: 5.6 cm IVSd: 0.54 cm Ao root diam: 2.9 cm LVIDs: 4.0 cm LVPWd: 0.61 cm RVDd: 2.6 cm FS: 28.1 % LAV(MOD-bp): 34.7 ml LA A4 area: 13.2 cm2 LA dimension(2D): 4.0 cm LAV(MOD-bp) Indexed: 20.0 ml/m2 LAV(MOD-sp2): 37.6 ml LAV(MOD-sp4): 30.5 ml RA A4 area: 8.8 cm2 Doppler Measurements & Calculations MV E max james: 66.1 cm/sec Lat Peak E' James: 7.2 cm/sec Med Peak E' James: 6.9 cm/sec E/E' lat: 9.1 E/E' med: 9.6 Ao V2 max: 129.4 cm/sec LV V1 max: 86.8 cm/sec Ao max P.7 mmHg LV V1 max P.0 mmHg ECHO/Echo Complete W/ Contrast Interpretation Summary Normal LV size. The estimated ejection fraction is 37 %. Moderate segmental systolic dysfunction (see wall motion). Bubble contrast study negative for right to left interatrial shunt. The above may be consistent with a Tak[place]ubo cardiomyopathy Compared to previou s study, the left ventricular systolic function has worsened.. Contrast injection was performed. Ordering Physician: Pete Su Referring Physician: SYED FRANCO Performed By: Jeannette Gracia, JENNIE, RVT
--- NOTE | 2021-06-15 18:48 | PCM.HP.STD ---
HPI - General HPI Narrative MARCO MAY, is a 65 F who presents to [place] with left leg weakness. Patient has had a history of stroke in the past with hemorrhage. She developed weakness in RLE, worse than baseline. Began last night. Persisted today. Additionally, she felt unwell with myalgias. She had a CT and CTA that was unremarkable. her symptoms are less pronounced than her CVA in 2017 where she had profound right arm hemiparesis. [facility] Medical History Alcohol abuse Anxiety Anxiety and depression Chronic anemia Chronic systolic (congestive) heart failure CO2 narcosis COPD (chronic obstructive pulmonary disease) Daytime hypersomnia Essential (primary) hypertension Fall GERD (gastroesophageal reflux disease) Head concussion Hemorrhagic cerebrovascular accident (CVA) (02/09/17) History of DVT of lower extremity (02/11/17) History of non-ST elevation myocardial infarction (NSTEMI) (02/03/17) Hypercarbia Hyperlipidemia Insomnia Ischemic cerebrovascular accident (CVA) (02/06/17) Non-ischemic cardiomyopathy Non-rheumatic mitral regurgitation TIO (obstructive sleep apnea) Respiratory insufficiency Secondary pulmonary arterial hypertension Stroke TIA (transient ischemic attack) (10/25/19) Home Medications aspirin 81 mg PO DAILY 11/03/20 [History Last Taken Unknown] buspirone 7.5 mg PO BID 11/03/20 [History Last Taken Unknown] carvedilol 12.5 mg PO BID 11/03/20 [History Last Taken Unknown] cholecalciferol (vitamin D3) [Vitamin D3] 25 mcg PO DAILY 11/03/20 [History Last Taken Unknown] duloxetine 60 mg PO DAILY 11/03/20 [History Last Taken Unknown] folic acid 1 mg PO DAILY 11/03/20 [History Last Taken Unknown] pantoprazole [Protonix] 40 mg PO DAILY 11/03/20 [History Last Taken Unknown] potassium chloride 20 meq PO DAILY 11/03/20 [History Last Taken Unknown] ropinirole 0.5 mg PO QHS 11/03/20 [History Last Taken Unknown] spironolactone 12.5 mg PO DAILY 11/03/20 [History Last Taken Unknown] zolpidem [Ambien] 5 mg PO QHS PRN #30 tab 11/04/20 [Rx Last Taken Unknown] albuterol sulfate 90 mcg/actuation aerosol inhaler 2 puff INHALATION Q4H PRN #18 g 12/23/20 [Rx Last Taken Unknown] fluticasone fur. 100 mcg-umeclid 62.5 mcg-vilant 25 mcg inhalat.powder 1 inh INHALATION DAILY #60 ea 12/23/20 [Rx Last Taken Unknown] Allergy/AdvReac Type Severity Reaction Status Date / Time tetanus and diphtheria Allergy Hives Verified 06/15/21 16:38 toxoids [tetanus & diphtheria toxoids] Family History Sister Cancer lung Father Cancer lung Mother Cancer lung Surgical History H/O: section History of bilateral cataract extraction History of cholecystectomy History of lumpectomy Hx of appendectomy Social History household members: none Smoking Status: Former smoker how long ago did patient quit smokin, 1pk/day second hand exposure: Yes alcohol intake: former substance use type: does not use what type of physical activity do you participate in: walking frequency: daily ROS ROS Narrative All review of systems were negative except as mentioned above in the history of present illness and the other review of systems. Occasionally gets blurred vision. Vital Signs Vital Signs Vital Signs: 06/15/21 16:39 06/15/21 16:43 06/15/21 17:09 Temperature 36.0 C L Temperature Source Temporal Pulse Rate 88 97 94 Respiratory Rate 16 29 H 20 H Blood Pressure 132/57 H 132/66 H 124/65 H Blood Pressure Mean 82 88 84 Pulse Ox 100 95 92 Oxygen Delivery Method Room Air Room Air Room Air Oxygen Flow Rate (L/min) 06/15/21 17:30 06/15/21 17:42 06/15/21 18:00 Temperature 37.0 C Temperature Source Temporal Pulse Rate 92 92 80 Respiratory Rate 18 16 15 Blood Pressure 126/68 H 126/68 H 110/41 L Blood Pressure Mean 87 87 64 Pulse Ox 98 98 93 Oxygen Delivery Method Room Air Room Air Oxygen Flow Rate (L/min) 06/15/21 18:35 06/15/21 18:38 Temperature Temperature Source Pulse Rate Respiratory Rate Blood Pressure Blood Pressure Mean Pulse Ox 84 94 Oxygen Delivery Method Room Air Nasal Cannula Oxygen Flow Rate (L/min) 2 Weight Weight: 68.4 kg Body Mass Index (BMI) 26.6 Physical Exam Const alert and no apparent distress General Appearance: cooperative HEENT normocephalic, head/scalp atraumatic, hearing grossly normal bilaterally and moist oral mucous membranes Eyes PERRL and EOMs intact bilaterally Neck no lymphadenopathy and supple Resp normal respiratory effort, no retractions, no use of accessory muscles and clear to auscultation bilaterally Cardio regular rate, regular rhythm, S1 normal heart sound and S2 normal heart sound GI normal to inspection, nondistended, normoactive bowel sounds, soft to palpation, non-tender and non-distended Extremity normal to inspection Skin no rashes or lesions noted Neuro oriented x3 Neuro Narrative: Muscle strength 5-5 and upper and lower extremities except right lower extremity where it is 4 out of 5.. Ataxia in the right upper extremity but patient states that this is stable. Sensorium / Orientation: awake and alert Psych affect normal Results Lab / Micro Data Attestation: I reviewed the patient's lab results. Result Diagrams: 06/15/21 16:50 06/15/21 16:50 Labs: Laboratory Results - last 24 hr 06/15/21 16:50: WBC 10.5, RBC 4.36, Hgb 12.7, Hct 40.1, MCV 92.0, MCH 29.1, MCHC 31.7 L, RDW Std Deviation 44.5 H, RDW Coeff of [place]onte 13.1, Plt Count 244, MPV 10.0, Immature Gran % (Auto) 0.600, Neut % (Auto) 70.2 H, Lymph % (Auto) 20.9, [place] % (Auto) 6.6, Eos % (Auto) 1.4, Baso % (Auto) 0.3, Absolute Neuts (auto) 7.4, Absolute Lymphs (auto) 2.19, Nucleated RBC % 0 06/15/21 16:50: PT 12.8, INR 1.0, APTT 27.8 06/15/21 16:50: Sodium 141, Potassium 4.2, Chloride 102, Carbon Dioxide 36.0 H, Anion Gap 3 L, BUN 17, Creatinine 0.95, Estim Creat Clear Calc 48.19, Est GFR (MDRD) Af Amer 76, Est GFR (MDRD) Non-Af 62, BUN/Creatinine Ratio 17.9, Glucose 131 H, Calcium 9.3, Troponin I High Sens 12 06/15/21 17:24: POC Glucose 115 H Radiology Impression Brain CT 06/15/21 16:48 IMPRESSION: 1. No acute intracranial abnormality. There has been no change from the reference examination. 2. Stable bilateral remote infarcts. 3. ASPECTS score 10 Individualized dose optimization techniques were used for this CT. at 1713 Reported and signed by: Garrison Yoo MD Electronically Signed: Garrison Yoo MD at 17:12 EST Tel , Service support , ADDENDUM: 06/15/21 1724 IMPRESSION: 1. No acute intracranial abnormality. There has been no change from the reference examination. 2. Stable bilateral remote infarcts. 3. ASPECTS score 10 Individualized dose optimization techniques were used for this CT. at 1713 Reported and signed by: Garrison Yoo MD N.B. : The above Results were Read Back by Garrison Yoo MD to Kimo Sims MD, and understanding confirmed on 06/15/2021 17:17:38 (ET). Electronically Signed: Garrison Yoo MD at 17:12 EST Tel , Service support , Chest X-Ray 06/15/21 16:48 IMPRESSION: No radiographic evidence of acute cardiopulmonary disease. at 1805 Reported and signed by: Garrison Yoo MD Electronically Signed: Garrison Yoo MD at 18:04 EST Tel , Service support , Head/Neck CTA 06/15/21 16:49 IMPRESSION: Negative CTA carotid and CTA brain. Individualized dose optimization techniques were used for this CT. at 1725 Reported and signed by: Garrison Yoo MD Electronically Signed: Garrison Yoo MD at 17:24 EST Tel , Service support , ADDENDUM: 06/15/21 1735 IMPRESSION: Negative CTA carotid and CTA brain. Individualized dose optimization techniques were used for this CT. at 1725 Reported and signed by: Garrison Yoo MD N.B. : The above Results were Read Back by Garrison Yoo MD to Kimo Sims MD, and understanding confirmed on 06/15/2021 17:28:05 (ET). Electronically Signed: Garrison Yoo MD at 17:24 EST Tel , Service support , Assessment & Plan Assessment/Plan (1) Acute CVA (cerebrovascular accident): PLAN: 1. Possible acute CVA Head CT and CTA of the head neck were unremarkable. Plan is to do an MRI of the brain as well as 2D echocardiogram Continue with aspirin After the MRI of the brain and echocardiogram, consider SOC telemetry neurology consultation. 2. COPD Stable 3. VTE prophylaxis with enoxaparin 4. COVID-19 vaccination: Patient has been vaccinated. Charges/Coding Visit Charges Inpatient E&M: 26403 Init Hosp L3
[2021-06-15 20:55] LABS: Troponin-I HS 16 pg/mL (3.0-54.0)
[2021-06-15] MEDS: Labetalol (Prefilled) 20 MG/4 ML IV (21:35)
[2021-06-16] VITALS (15 sets, daily range): BP systolic 102–135; BP diastolic 42–88; PULSE 64–87; RESP 16–20; TEMP 36.4–36.6; O2SAT 87–100; BMI 27.4
[2021-06-16] MEDS: Zolpidem Tartrate 5 MG Tablet PO ×2 (00:07→21:19)
[2021-06-16] MEDS: Pramipexole Di-HCl 0.25 MG Tablet PO ×2 (00:13→20:00)
[2021-06-16] MEDS: LORazepam 2 MG/ML Syringe 1 MG IV ×2 (04:31→09:33)
--- NOTE | 2021-06-16 05:18 | PCS.PANDOC ---
PANDEMIC DOCUMENTATION INITIATED: Date: 06/15/2021 Time: 2021
[2021-06-16] MEDS: Ipratropium/Albuterol Sulfate 3 ML AMPUL.NEB INHALATION ×2 (06:42→19:31)
[2021-06-16] MEDS: Budesonide Respules 0.5 MG/2 ML AMPUL.NEB. INHALATION ×2 (06:42→21:08)
[2021-06-16 06:53] LABS: Cholesterol 127 mg/dL (200); High Density Lipoprotein 56 mg/dL; Triglycerides 101 mg/dL; Very Low Density Lipoprotein 20 mg/dL (5-40)
[2021-06-16] MEDS: Spironolactone 25 MG Tablet 12.5 MG PO (08:31)
[2021-06-16] MEDS: Aspirin 81 MG TAB.CHEW PO (08:31)
[2021-06-16] MEDS: Potassium Chloride Oral Tablet 20 MEQ PO (08:31)
[2021-06-16] MEDS: Folic Acid 1 MG Tablet PO (08:31)
[2021-06-16] MEDS: busPIRone 15 MG TABLET 7.5 MG PO (08:32)
[2021-06-16] MEDS: Enoxaparin 40 MG/0.4 ML Syringe SC (08:33)
[2021-06-16] MEDS: Pantoprazole Sodium 40 MG Tablet PO (08:33)
[2021-06-16] MEDS: DULoxetine Hcl 60 MG Capsule PO (08:33)
[2021-06-16] MEDS: Cholecalciferol (VIT D3) 25 MCG TABLET (1,000 UNITS) PO (08:33)
--- NOTE | 2021-06-16 09:30 | MRI_ITS ---
EXAM: MR HEAD WITHOUT INTRAVENOUS CONTRAST CLINICAL INDICATION: Right leg weakness. History of CVA. TECHNIQUE: Multiplanar and multisequence MR images of the brain were obtained without intravenous contrast. This report was created using [employer] report generation technology. COMPARISON: MRI brain without contrast 10/25/2019. CT head without contrast 06/15/2021. FINDINGS: BRAIN AND EXTRA-AXIAL SPACES: No diffusion restriction to suspect acute or subacute ischemic infarct. Large cortical-based ischemic infarcts with cystic changes and surrounding encephalomalacia in the left parietal lobe and right posterior parietal-occipital lobe. Small old ischemic infarct with cystic atrophy and encephalomalacia in the right precentral gyrus. No intra- or extra-axial hemorrhage. No intracranial mass or mass effect. Posterior fossa structures are unremarkable. Basal cisterns are patent. SELLA: Unremarkable. Normal sella turcica, pituitary gland, infundibular stalk, optic chiasm and hypothalamus. AUDITORY SYSTEM: Unremarkable. The internal auditory canals are patent. BONES/JOINTS: Unremarkable. No discrete lytic or blastic abnormalities. SINUSES: Unremarkable as visualized. Clear. MASTOID AIR CELLS: Unremarkable as visualized. Clear. ORBITS: Unremarkable as visualized. Both globes, extraocular muscles, optic nerves and retrobulbar fat appear unremarkable. VASCULATURE: Unremarkable as visualized. Normal flow voids in the major intracranial circulation. MRI/Brain without Contrast IMPRESSION: 1. No MRI evidence of acute or subacute ischemic infarct. 2. Large old cortical based ischemic infarcts with cystic changes of surrounding encephalomalacia in the left parietal lobe and right posterior parieto-occipital lobe. 3. Small old ischemic infarct with cystic encephalomalacia and atrophy in the right precentral gyrus. 4. No interval change when compared to 10/25/2019. Electronically Signed: Dionicio Coburn MD at 10:58 EST , Service support ,
--- NOTE | 2021-06-16 10:50 | CASEMGMT ---
FIN[facility]SE [facility] Face to Face with patient for initial transition planning/care coordination assessment. RN CM introduced self and role at [facility]. Patient lying in bed, alert and oriented. Patient willing to participate in assessment and is able to answer all questions appropriately. Care providers, pharmacy, and demographics verified. Patient wishes to discharge home, denies need for home health at this time. Patient states she has no further needs or concerns at this time. CM to follow for discharge planning needs that may arise. PCP: [place] Specialists: none Preferred Pharmacy: [facility] Insurance: [facility] Prescription Benefit: yes Living Will/HPOA: none LNOK: daughter, significant other Living Arrangements: patient lives with significant other in 2 story home with bed and bath on first floor. 3 step and railing to enter the home. Patient states she is independent at home. Transportation: self/significant other DME/HHC: Patient states she has shower chair, raised toilet, grab bars, walker, cpap, nebulizer, and home oxygen 2 lpm through [employer] with portability. Patient has had [facility] in the past. Disposition Plan: Patient to discharge home with family support and follow-up plans in place. Carla BROWN, RN, CM
--- NOTE | 2021-06-16 13:14 | NURSING ---
arrived to floor 1300, room 214
--- NOTE | 2021-06-16 14:59 | PN.HOSP_ITS ---
Subjective Subjective Patient seen and examined. SHe was admitted with a complaint of LLE weakness, and was admitted to rule out a stroke. CT of the brain was negative for any acute intracranial pathology and CT of the head and neck also did not show any large vessel occlusion or hemodynamically significant stenosis. She has no complaints and review of systems otherwise negative. Objective Data Objective Data Vital Signs: Vital Signs Temp Pulse Resp BP Pulse Ox 97.5 F L 78 18 117/56 L 99 06/16/21 13:06 06/16/21 13:06 06/16/21 13:06 06/16/21 13:06 06/16/21 13:06 Oxygen Flow Rate (L/min) 2 Oxygen Delivery Method Nasal Cannula Weight: 154 lb 15.759 oz Body Mass Index (BMI) 27.4 Lab / Micro Data Result Diagrams: 06/15/21 16:50 06/15/21 16:50 Labs: Laboratory Results - last 24 hr 06/15/21 16:50: WBC 10.5, RBC 4.36, Hgb 12.7, Hct 40.1, MCV 92.0, MCH 29.1, MCHC 31.7 L, RDW Std Deviation 44.5 H, RDW Coeff of Deonte 13.1, Plt Count 244, MPV 10.0, Immature Gran % (Auto) 0.600, Neut % (Auto) 70.2 H, Lymph % (Auto) 20.9, [place] % (Auto) 6.6, Eos % (Auto) 1.4, Baso % (Auto) 0.3, Absolute Neuts (auto) 7.4, Absolute Lymphs (auto) 2.19, Nucleated RBC % 0 06/15/21 16:50: PT 12.8, INR 1.0, APTT 27.8 06/15/21 16:50: Sodium 141, Potassium 4.2, Chloride 102, Carbon Dioxide 36.0 H, Anion Gap 3 L, BUN 17, Creatinine 0.95, Estim Creat Clear Calc 48.19, Est GFR (MDRD) Af Amer 76, Est GFR (MDRD) Non-Af 62, BUN/Creatinine Ratio 17.9, Glucose 131 H, Calcium 9.3, Troponin I High Sens 12 06/15/21 17:24: POC Glucose 115 H 06/15/21 20:30: Troponin I High Sens 16 06/16/21 06:10: Triglycerides 101, Cholesterol 127, LDL Cholesterol 51, VLDL Cholesterol 20, HDL Cholesterol 56 Micro: Microbiology 06/15/21 18:45 Nasal Secretion SARS-CoV-2 Antigen (Rapid) - Final Radiography Diagnostic Testing: Radiology Impression Brain CT 06/15/21 16:48 IMPRESSION: 1. No acute intracranial abnormality. There has been no change from the reference examination. 2. Stable bilateral remote infarcts. 3. ASPECTS score 10 Individualized dose optimization techniques were used for this CT. at 1713 Reported and signed by: Garrison Yoo MD Electronically Signed: Garrison Yoo MD at 17:12 EST Tel , Service support , ADDENDUM: 06/15/21 1724 IMPRESSION: 1. No acute intracranial abnormality. There has been no change from the reference examination. 2. Stable bilateral remote infarcts. 3. ASPECTS score 10 Individualized dose optimization techniques were used for this CT. at 1713 Reported and signed by: Garrison Yoo MD N.B. : The above Results were Read Back by Garrison Yoo MD to Kimo Sims MD, and understanding confirmed on 06/15/2021 17:17:38 (ET). Electronically Signed: Garrison Yoo MD at 17:12 EST Tel , Service support , Chest X-Ray 06/15/21 16:48 IMPRESSION: No radiographic evidence of acute cardiopulmonary disease. at 1805 Reported and signed by: Garrison Yoo MD Electronically Signed: Garrison Yoo MD at 18:04 EST Tel , Service support , Head/Neck CTA 06/15/21 16:49 IMPRESSION: Negative CTA carotid and CTA brain. Individualized dose optimization techniques were used for this CT. at 1725 Reported and signed by: Garrison Yoo MD Electronically Signed: Garrison Yoo MD at 17:24 EST Tel , Service support , ADDENDUM: 06/15/21 1735 IMPRESSION: Negative CTA carotid and CTA brain. Individualized dose optimization techniques were used for this CT. at 1725 Reported and signed by: Garrison Yoo MD N.B. : The above Results were Read Back by Garrison Yoo MD to Kimo Sims MD, and understanding confirmed on 06/15/2021 17:28:05 (ET). Electronically Signed: Garrison Yoo MD at 17:24 EST Tel , Service support , Echocardiogram 06/15/21 18:48 Interpretation Summary Normal LV size. The estimated ejection fraction is 37 %. Moderate segmental systolic dysfunction (see wall motion). Bubble contrast study negative for right to left interatrial shunt. The above may be consistent with a Takotsubo cardiomyopathy Compared to previous study, the left ventricular systolic function has worsened.. Contrast injection was performed. Ordering Physician: Pete Su Referring Physician: SYED FRANCO Performed By: Jeannette Gracia, RDCS, RVT Brain MRI 06/16/21 09:30 IMPRESSION: 1. No MRI evidence of acute or subacute ischemic infarct. 2. Large old cortical based ischemic infarcts with cystic changes of surrounding encephalomalacia in the left parietal lobe and right posterior parieto-occipital lobe. 3. Small old ischemic infarct with cystic encephalomalacia and atrophy in the right precentral gyrus. 4. No interval change when compared to 10/25/2019. Electronically Signed: Dionicio Coburn MD at 10:58 EST , Service support , Physical Exam Const alert, oriented x3 and no apparent distress Exam Limitations: no limitations HEENT head/scalp atraumatic, moist oral mucous membranes and oropharynx normal Head and Scalp: normocephalic Eyes PERRL, EOMs intact bilaterally and conjunctivae normal Neck no lymphadenopathy and supple Resp normal respiratory effort and no retractions Cardio regular rate, regular rhythm, S1 normal heart sound, S2 normal heart sound and no murmurs GI normal to inspection, nondistended, normoactive bowel sounds, soft to palpation, non-tender and non-distended Extremity normal to inspection, full ROM and no clubbing, cyanosis or edema Peripheral Pulses: Yes pulses 2+ throughout Skin no rashes or lesions noted Neuro oriented x3, CN's II-XII intact bilaterally and moves all extremities Sensorium / Orientation: awake and alert Psych affect normal Assessment & Plan Assessment/Plan (1) Weakness due to old stroke: PLAN: #LLE weakness * likely still a sequelae of an old stroke * CT of the head and CTA of the head and neck were unremarkable * 2D echo showed hypokinesis fo the LV, with EF of 37%. Previous echo from November 2020 showed EF of 55% * on aspirin. PT/OT on board. Fall precautions * MRI of the brain is negative for any acute intracranial pathology and showed large cortical-based infarcts with cystic changes of surrounding encephalomalacia in the left parietal lobe and right posterior parieto- occipital lobe * #Cardiomyopathy * Etiology is not clear but could be ischemic in light of her history of stroke. She is noted to have a history of nonischemic cardiomyopathy per her history * 2D echo as outlined above * Will consult cardiology #History of COPD: Stable. Breathing treatments bronchodilators. Titrate oxygen to maintain saturation above 90%. #Hypertension: On carvedilol and spironolactone #Heart failure preserved ejection fraction: EF is now reduced to 37%. On spi ronolactone. Not on Lasix. Not clear why. #History of CVA: On aspirin and statin DVT prophylaxis: lovenox Charges/Coding Visit Charges OBSV E&M: 49867 Subsequent observation care L2
--- NOTE | 2021-06-16 16:11 | PCM.CONS.C ---
Assessment & Plan Assessment/Plan (1) Non-ischemic cardiomyopathy: PLAN: She has evidence of a cardiomyopathy with no previous documentation of her coronary anatomy. Due to the reduction in her left ventricular ejection fraction I would recommend that we evaluate the above with a left heart catheterization. The risk benefits alternatives have been explained to her she understands and agrees to proceed. Depending on the findings further recommendations will be made. (2) Essential (primary) hypertension: PLAN: She does have a history of hypertension and will currently continue on her medications with the beta-marilyn and spironolactone. (3) Hyperlipidemia: QUALIFIERS: Hyperlipidemia type: unspecified Qualified Code(s): E78.5 - Hyperlipidemia, unspecified PLAN: She will continue with aggressive risk factor modification. HPI Consult Data Date of Consult: 06/16/21 HPI Narrative HPI Narrative: MARCO MAY, is a 65 F who presents with weakness of her right leg and felt to have had a cerebrovascular accident which was excluded by CT scan as well as CT angiogram. She had an echocardiogram performed today which demonstrated evidence of anterior apical hypokinesis with reduced ejection fraction of 35 to 40%. Cardiology consult was sought. She denies any chest pain no paroxysmal nocturnal dyspnea or pedal edema no neck arm or jaw discomfort to suggest angina. Her history is significant for a type II myocardial infarction in 2016. At that time it was thought that it was secondary to alcohol withdrawal. She subsequently underwent a stress test in November of this year which demonstrated evidence of a previous anterior infarct. She did have an echocardiogram however which demonstrated preserved ejection fraction. The nuclear images had demonstrated a gated ejection fraction to be approximately 30%. She remained free of any symptoms and was treated with maximal medical therapy. She presented again this time with these symptoms with no acute EKG changes. At this particular time she is free of significant symptomatology. She denies any neck arm or jaw discomfort to suggest angina. [facility] Medical History Alcohol abuse Anxiety Anxiety and depression Chronic anemia Chronic systolic (congestive) heart failure CO2 narcosis COPD (chronic obstructive pulmonary disease) Daytime hypersomnia Essential (primary) hypertension Fall GERD (gastroesophageal reflux disease) Head concussion Hemorrhagic cerebrovascular accident (CVA) (02/09/17) History of DVT of lower extremity (02/11/17) History of non-ST elevation myocardial infarction (NSTEMI) (02/03/17) Hypercarbia Hyperlipidemia Insomnia Ischemic cerebrovascular accident (CVA) (02/06/17) Non-ischemic cardiomyopathy Non-rheumatic mitral regurgitation TIO (obstructive sleep apnea) Respiratory insufficiency Secondary pulmonary arterial hypertension Stroke TIA (transient ischemic attack) (10/25/19) Home Medications aspirin 81 mg PO DAILY 11/03/20 [History Last Taken Unknown] carvedilol 12.5 mg PO BID 11/03/20 [History Last Taken Unknown] cholecalciferol (vitamin D3) [Vitamin D3] 25 mcg PO DAILY 11/03/20 [History Last Taken Unknown] duloxetine 60 mg PO DAILY 11/03/20 [History Last Taken Unknown] folic acid 1 mg PO DAILY 11/03/20 [History Last Taken Unknown] pantoprazole [Protonix] 40 mg PO DAILY 11/03/20 [History Last Taken Unknown] potassium chloride 20 meq PO DAILY 11/03/20 [History Last Taken Unknown] ropinirole 0.5 mg PO QHS 11/03/20 [History Last Taken Unknown] spironolactone 12.5 mg PO DAILY 11/03/20 [History Last Taken Unknown] albuterol sulfate 90 mcg/actuation aerosol inhaler 2 puff INHALATION Q4H PRN #18 g 12/23/20 [Rx Last Taken Unknown] fluticasone fur. 100 mcg-umeclid 62.5 mcg-vilant 25 mcg inhalat.powder 1 inh INHALATION DAILY #60 ea 12/23/20 [Rx Last Taken Unknown] albuterol sulfate 1.25 mg INHALATION Q4H PRN 06/15/21 [History Last Taken Unknown] zolpidem 10 mg PO QHS 06/15/21 [History Last Taken Unknown] lorazepam 0.5 mg PO QHS PRN 06/16/21 [History Last Taken Unknown] Allergy/AdvReac Type Severity Reaction Status Date / Time tetanus and diphtheria Allergy Hives Verified 06/15/21 16:38 toxoids [tetanus & diphtheria toxoids] Family History Sister Cancer lung Father Cancer lung Mother Cancer lung Surgical History H/O: section History of bilateral cataract extraction History of cholecystectomy History of lumpectomy Hx of appendectomy Social History household members: none Smoking Status: Former smoker how long ago did patient quit smokin, 1pk/day second hand exposure: Yes alcohol intake: former substance use type: does not use what type of physical activity do you participate in: walking frequency: daily ROS Constitutional Constitutional: Denies fever(s) or weight loss Eyes Eyes: Reports systems reviewed and no addt'l complaints, except as documented ENT HEENT: Reports systems reviewed and no addt'l complaints, except as documented Cardiovascular Cardiovascular: Denies chest pain at rest, chest pain with activity, dyspnea at rest, dyspnea on exertion, edema, palpitations or paroxysmal nocturnal dyspnea Respiratory/Chest Respiratory/Chest: Denies dyspnea on exertion, productive cough, shortness of breath at rest or shortness of breath with exertion Gastrointestinal Gastrointestinal: Denies change in bowel habits, nausea, vomiting or weight changes Genitourinary Genitourinary: Denies difficulty urinating Musculoskeletal Musculoskeletal: Denies joint stiffness or muscle weakness Integumentary Integumentary: Denies lesions Neurologic Neurologic: Denies dizziness or syncope Psychiatric Psychiatric: Denies anxiety Endocrine Endocrinology: Denies excessive sweating or fatigue Hematologic/Lymphatic Hematologic/Lymphatic: Denies anemia Allergic/Immunologic Allergic/Immunologic: Denies seasonal rhinorrhea Physical Exam Const alert, oriented x3 and no apparent distress General Appearance: cooperative HEENT hearing grossly normal bilaterally Head and Scalp: atraumatic Eyes EOMs intact bilaterally Neck General: normal visual inspection Chest inspection of chest normal and palpation of chest normal Resp normal respiratory effort Auscultation: clear to auscultation bilaterally Cardio regular rate, regular rhythm, S1 normal heart sound and S2 normal heart sound Jugular Venous Distention: JVD GI normal to inspection, nondistended, normoactive bowel sounds Extremity normal capillary refill and no pedal edema Peripheral Pulses: Yes pulses 2+ throughout and femoral pulses present Skin no rashes or lesions noted Neuro oriented x3 and CN's II-XII intact bilaterally Psych Appearance: grossly normal and appropriate Risk Stratification Risk Stratification Applicable: No Objective Data Vital Signs: Vital Signs Temp Pulse Resp BP Pulse Ox 97.5 F L 87 16 135/61 H 99 06/16/21 15:55 06/16/21 15:55 06/16/21 15:55 06/16/21 15:55 06/16/21 15:55 Oxygen Flow Rate (L/min) 2 Oxygen Delivery Method Nasal Cannula Weight: 154 lb 15.759 oz Body Mass Index (BMI) 27.4 Lab / Micro Data Result Diagrams: 06/15/21 16:50 06/15/21 16:50 Labs: Laboratory Results - last 24 hr 06/15/21 16:50: WBC 10.5, RBC 4.36, Hgb 12.7, Hct 40.1, MCV 92.0, MCH 29.1, MCHC 31.7 L, RDW Std Deviation 44.5 H, RDW Coeff of [place]onte 13.1, Plt Count 244, MPV 10.0, Immature Gran % (Auto) 0.600, Neut % (Auto) 70.2 H, Lymph % (Auto) 20.9, [place] % (Auto) 6.6, Eos % (Auto) 1.4, Baso % (Auto) 0.3, Absolute Neuts (auto) 7.4, Absolute Lymphs (auto) 2.19, Nucleated RBC % 0 06/15/21 16:50: PT 12.8, INR 1.0, APTT 27.8 06/15/21 16:50: Sodium 141, Potassium 4.2, Chloride 102, Carbon Dioxide 36.0 H, Anion Gap 3 L, BUN 17, Creatinine 0.95, Estim Creat Clear Calc 48.19, Est GFR (MDRD) Af Amer 76, Est GFR (MDRD) Non-Af 62, BUN/Creatinine Ratio 17.9, Glucose 131 H, Calcium 9.3, Troponin I High Sens 12 06/15/21 17:24: POC Glucose 115 H 06/15/21 20:30: Troponin I High Sens 16 06/16/21 06:10: Triglycerides 101, Cholesterol 127, LDL Cholesterol 51, VLDL Cholesterol 20, HDL Cholesterol 56 Micro: Microbiology 06/15/21 18:45 Nasal Secretion SARS-CoV-2 Antigen (Rapid) - Final Cardiology Labs/Tests 06/15/21 16:50: WBC 10.5, RBC 4.36, Hgb 12.7, Hct 40.1, MCV 92.0, MCH 29.1, MCHC 31.7 L, Plt Count 244, MPV 10.0, Immature Gran % (Auto) 0.600, Neut % (Auto) 70.2 H, Lymph % (Auto) 20.9, [place] % (Auto) 6.6, Eos % (Auto) 1.4, Baso % (Auto) 0.3, Absolute Neuts (auto) 7.4, Nucleated RBC % 0 06/15/21 16:50: PT 12.8, INR 1.0, APTT 27.8 06/15/21 16:50: Sodium 141, Potassium 4.2, Chloride 102, Carbon Dioxide 36.0 H, Anion Gap 3 L, BUN 17, Creatinine 0.95, Est GFR (MDRD) Af Amer 76, Est GFR (MDRD) Non-Af 62, BUN/Creatinine Ratio 17.9, Glucose 131 H, Calcium 9.3 06/16/21 06:10: Triglycerides 101, Cholesterol 127, LDL Cholesterol 51, VLDL Cholesterol 20, HDL Cholesterol 56 Rhythm: EKG: ECHO: Stress Test: Cardiac Cath: PCI: CT Surgery: Holter monitor: EPS: PPM: CXR: Chest CT Scan: Radiography Diagnostic Testing: Radiology Impression Brain CT 06/15/21 16:48 IMPRESSION: 1. No acute intracranial abnormality. There has been no change from the reference examination. 2. Stable bilateral remote infarcts. 3. ASPECTS score 10 Individualized dose optimization techniques were used for this CT. at 1713 Reported and signed by: Garrison Yoo MD Electronically Signed: Garrison Yoo MD at 17:12 EST Tel , Service support , ADDENDUM: 06/15/21 1724 IMPRESSION: 1. No acute intracranial abnormality. There has been no change from the reference examination. 2. Stable bilateral remote infarcts. 3. ASPECTS score 10 Individualized dose optimization techniques were used for this CT. at 1713 Reported and signed by: Garrison Yoo MD N.B. : The above Results were Read Back by Garrison Yoo MD to Kimo Sims MD, and understanding confirmed on 06/15/2021 17:17:38 (ET). Electronically Signed: Garrison Yoo MD at 17:12 EST Tel , Service support , Chest X-Ray 06/15/21 16:48 IMPRESSION: No radiographic evidence of acute cardiopulmonary disease. at 1805 Reported and signed by: Garrison Yoo MD Electronically Signed: Garrison Yoo MD at 18:04 EST Tel , Service support , Head/Neck CTA 06/15/21 16:49 IMPRESSION: Negative CTA carotid and CTA brain. Individualized dose optimization techniques were used for this CT. at 1725 Reported and signed by: Garrison Yoo MD Electronically Signed: Garrison Yoo MD at 17:24 EST Tel , Service support , ADDENDUM: 06/15/21 1735 IMPRESSION: Negative CTA carotid and CTA brain. Individualized dose optimization techniques were used for this CT. at 1725 Reported and signed by: Garrison Yoo MD N.B. : The above Results were Read Back by Garrison Yoo MD to Kimo Sims MD, and understanding confirmed on 06/15/2021 17:28:05 (ET). Electronically Signed: Garrison Yoo MD at 17:24 EST Tel , Service support , Echocardiogram 06/15/21 18:48 Interpretation Summary Normal LV size. The estimated ejection fraction is 37 %. Moderate segmental systolic dysfunction (see wall motion). Bubble contrast study negative for right to left interatrial shunt. The above may be consistent with a Takotsubo cardiomyopathy Compared to previous study, the left ventricular systolic function has worsened.. Contrast injection was performed. Ordering Physician: Pete Su Referring Physician: SYED FRANCO Performed By: Jeannette Gracia, RDCS, RVT Brain MRI 06/16/21 09:30 IMPRESSION: 1. No MRI evidence of acute or subacute ischemic infarct. 2. Large old cortical based ischemic infarcts with cystic changes of surrounding encephalomalacia in the left parietal lobe and right posterior parieto-occipital lobe. 3. Small old ischemic infarct with cystic encephalomalacia and atrophy in the right precentral gyrus. 4. No interval change when compared to 10/25/2019. Electronically Signed: Dionicio Coburn MD at 10:58 EST , Service support ,
[2021-06-16] MEDS: LORazepam 0.5 MG Tablet PO (19:58)
[2021-06-16] MEDS: Carvedilol 12.5 MG Tablet PO (19:59)
[2021-06-17] VITALS (9 sets, daily range): BP systolic 95–115; BP diastolic 53–65; PULSE 67–88; RESP 16–20; TEMP 36.6–36.9; O2SAT 93–98
[2021-06-17] MEDS: Aspirin 81 MG TAB.CHEW PO (05:55)
[2021-06-17] MEDS: Carvedilol 12.5 MG Tablet PO (05:56)
[2021-06-17] MEDS: Losartan Potassium 25 MG Tablet PO (05:57)
[2021-06-17 06:06] LABS: Absolute Lymphocyte Count 2.05 X10^3/uL (0.83-4.51); Absolute Neutrophil Count 5.8 X10^3/uL (2.0-7.7); Basophil# 0.03 X10^3/uL; Basophil% 0.4 % (0-1); Eosinophil# 0.16 X10^3/uL; Eosinophils% 1.9 % (0-5); Lymphocyte # 2.05 X10^3/ul (0.83-4.51); Lymphocyte % 23.9 % (19-41); Mean Corp Hgb Conc 31.6 g/dL (32-36); Mean Corpuscular Hgb 29.6 pg (27.0-32.0); Mean Corpuscular Volume 93.8 fL (81-99); Mean Platelet Vol. 10.3 fl (6.2-12.0); Monocyte# 0.53 X10^3/uL; Monocyte% 6.2 % (0-10); NRBC Flagged by Analyzer 0 % (0-5); Neutrophil # 5.77 X10^3/uL (2.7-7.7); Neutrophil % 67.2 % (47-70); Platelet Count 226 K/mm3 (150-450); RBC Distribution Width CV 13.5 % (11.6-14.6); RBC Distribution Width SD 46.1 fl (35.1-43.9); Red Blood Count 4.05 M/mm3 (4.2-5.4); White Blood Count 8.6 K/mm3 (4.4-11.0)
[2021-06-17 06:29] LABS: Anion Gap 3 (5-15); BUN 13 mg/dL (7-18); BUN/Creat Ratio 18.7 RATIO (10-20); Calcium,Total 9.5 mg/dL (8.5-10.1); Chloride 107 mmol/L (98-107); EST Glomerular Filtration Rate 90 mL/min (>60); Est Glom Filt Rate - Afr Amer 108 mL/min (>60); Estimated Creatinine Clearance 45.78 ml/min; Glucose 100 mg/dL (74-106); Potassium 3.9 mmol/L (3.5-5.1); Sodium Level 141 mmol/L (136-145)
[2021-06-17] MEDS: Budesonide Respules 0.5 MG/2 ML AMPUL.NEB. INHALATION (07:10)
[2021-06-17] MEDS: Ipratropium/Albuterol Sulfate 3 ML AMPUL.NEB INHALATION ×2 (07:10→12:32)
--- NOTE | 2021-06-17 08:25 | PN.CARD_ITS ---
Subjective Subjective Patient seen and evaluated. Appears to be doing well underwent cardiac catheterization today Objective Data Vital Signs: Vital Signs Temp Pulse Resp BP Pulse Ox 98.5 F 76 20 H 113/65 95 06/17/21 05:45 06/17/21 07:14 06/17/21 07:14 06/17/21 05:45 06/17/21 07:14 Oxygen Flow Rate (L/min) 2 Oxygen Delivery Method Nasal Cannula Weight: 154 lb 15.759 oz Body Mass Index (BMI) 27.4 Intake & Output: Intake and Output for Last 24 Hours 06/15/21 06/16/21 06/17/21 23:59 23:59 23:59 Intake Total 120 / 240 120 / 120 Output Total 0 / 0 Balance 120 / 240 120 / 120 Lab / Micro Data Result Diagrams: 06/17/21 05:34 06/17/21 05:34 Labs: Laboratory Results - last 24 hr 06/17/21 05:34: WBC 8.6, RBC 4.05 L, Hgb 12.0, Hct 38.0, MCV 93.8, MCH 29.6, MCHC 31.6 L, RDW Std Deviation 46.1 H, RDW Coeff of Deonte 13.5, Plt Count 226, MPV 10.3, Immature Gran % (Auto) 0.400, Neut % (Auto) 67.2, Lymph % (Auto) 23.9, [place] % (Auto) 6.2, Eos % (Auto) 1.9, Baso % (Auto) 0.4, Absolute Neuts (auto) 5.8, Absolute Lymphs (auto) 2.05, Nucleated RBC % 0 06/17/21 05:34: Sodium 141, Potassium 3.9, Chloride 107, Carbon Dioxide 31.0, Anion Gap 3 L, BUN 13, Creatinine 0.70, Estim Creat Clear Calc 45.78, Est GFR (MDRD) Af Amer 108, Est GFR (MDRD) Non-Af 90, BUN/Creatinine Ratio 18.7, Glucose 100, Calcium 9.5 Cardiology Labs/Tests 06/17/21 05:34: WBC 8.6, RBC 4.05 L, Hgb 12.0, Hct 38.0, MCV 93.8, MCH 29.6, MCHC 31.6 L, Plt Count 226, MPV 10.3, Immature Gran % (Auto) 0.400, Neut % (Auto) 67.2, Lymph % (Auto) 23.9, [place] % (Auto) 6.2, Eos % (Auto) 1.9, Baso % (Auto) 0.4, Absolute Neuts (auto) 5.8, Nucleated RBC % 0 06/17/21 05:34: Sodium 141, Potassium 3.9, Chloride 107, Carbon Dioxide 31.0, Anion Gap 3 L, BUN 13, Creatinine 0.70, Est GFR (MDRD) Af Amer 108, Est GFR (MDRD) Non-Af 90, BUN/Creatinine Ratio 18.7, Glucose 100, Calcium 9.5 Rhythm: EKG: ECHO: Stress Test: Cardiac Cath: PCI: CT Surgery: Holter monitor: EPS: PPM: CXR: Chest CT Scan: Radiography Diagnostic Testing: Radiology Impression Echocardiogram 06/15/21 18:48 Interpretation Summary Normal LV size. The estimated ejection fraction is 37 %. Moderate segmental systolic dysfunction (see wall motion). Bubble contrast study negative for right to left interatrial shunt. The above may be consistent with a Takotsubo cardiomyopathy Compared to previous study, the left ventricular systolic function has worsened.. Contrast injection was performed. _ Ordering Physician: Pete Su Referring Physician: SYED FRANCO Performed By: Jeannette Gracia, RDCS, RVT Brain MRI 06/16/21 09:30 IMPRESSION: 1. No MRI evidence of acute or subacute ischemic infarct. 2. Large old cortical based ischemic infarcts with cystic changes of surrounding encephalomalacia in the left parietal lobe and right posterior parieto-occipital lobe. 3. Small old ischemic infarct with cystic encephalomalacia and atrophy in the right precentral gyrus. 4. No interval change when compared to 10/25/2019. Electronically Signed: Dionicio Coburn MD at 10:58 EST , Service support , Physical Exam Const alert, oriented x3 and no apparent distress General Appearance: cooperative HEENT hearing grossly normal bilaterally Head and Scalp: atraumatic Eyes EOMs intact bilaterally Neck General: normal visual inspection Chest inspection of chest normal and palpation of chest normal Resp normal respiratory effort Auscultation: clear to auscultation bilaterally Cardio regular rate, regular rhythm, S1 normal heart sound and S2 normal heart sound Jugular Venous Distention: JVD GI normal to inspection, nondistended, normoactive bowel sounds Extremity normal capillary refill and no pedal edema Peripheral Pulses: Yes pulses 2+ throughout and femoral pulses present Skin no rashes or lesions noted Neuro oriented x3 and CN's II-XII intact bilaterally Psych Appearance: grossly normal and appropriate Assessment & Plan Assessment/Plan (1) Non-ischemic cardiomyopathy: PLAN: She has evidence of a cardiomyopathy with no previous documentation of her coronary anatomy. She underwent a left heart catheterization today which demonstrated essentially normal coronary arteries. Her left ventricular ejection fraction was reduced at approximately 40% with severe hypokinesis of the anterior wall and apex consistent with either a revascularized LAD or a Takotsubo. Remember that the stress test performed earlier had demonstrated an akinetic segment. We will recommend continuation of the medical therapy with the carvedilol Continue the losartan Continue spironolactone The patient can be discharged today for outpatient follow-up. (2) Essential (primary) hypertension: PLAN: She does have a history of hypertension and will currently continue on her medications with the beta-marilyn and spironolactone. (3) Hyperlipidemia: QUALIFIERS: Hyperlipidemia type: unspecified Qualified Code(s): E78.5 - Hyperlipidemia, unspecified PLAN: She will continue with aggressive risk factor modification.
--- NOTE | 2021-06-17 08:42 | CASEMGMT ---
Social Work PHQ-9 not completed as stroke was ruled out. BURTON Elmore
--- NOTE | 2021-06-17 09:11 | CL.D_ITS ---
Patient Name: MARCO MAY Study Date: 06/17/2021 Performing: Shahzad Long MD Ht: 62.99 inches 160 cm : 1955 Wt: 154.32 lbs 70 kg Age: 65 Gender: female BSA: 1.73 PROCEDURE(S) PERFORMED DC01-(00400)LHC/COR/LV CLINICAL PROFILE AND INDICATIONS Indications: Suspected CAD Heart Failure: None Stress/Imaging Date: 06/11/2021 CAD Presentations: Symptom unlikely to be ischemic. CONCLUSIONS Normal coronary arteries Cardiomyopathy: Takotsubo RECOMMENDATIONS Medical therapy DESCRIPTION OF PROCEDURE The patient arrived to the procedure lab. The risks and benefits of the procedure as well as a full d escription of our services here and current unavailability of surgical backup were fully explained to the patient and/or their significant other prior to the catheterization. The Timeout was completed, verifying the correct patient and procedure. The patient's procedural site was prepped and draped in the usual fashion. Local anesthetic was given subcutaneously to right radial region with Lidocaine 2% . Using a modified Seldinger technique, arterial access was obtained via the right radial artery, a 6 Fr sheath was inserted. Left Coronary Artery selective angiography was performed in multiple views u sing a 5 Fr. 4.0 [place] catheter. Right Coronary Artery selective angiography was then performed in mu ltiple views using a 5 Fr. 4.0 [place] catheter. Left Ventriculography was performed in YATES projection using a 5 Fr. Pigtail catheter. LV to AO pullback pressures were then recorded.The arterial sheath was pulled and a TR Band was applied for hemostasis. 12cc of air CORONARY ANGIOGRAPHY DOMINANCE: Right Dominant LEFT HEART ASSESSMENT Left Ventricular Ejection Fraction: by LV Gram 40 % Anterior Hypokinesis - Moderate. Apical Hypokinesis - Moderate Consistent with Takotsubo cardiomyopathy. LEFT MAIN: Angiographically normal LEFT ANTERIOR DESCENDING ARTERY: No significant disease noted CIRCUMFLEX ARTERY: No significant disease noted RIGHT CORONARY ARTERY: Mild luminal irregularities COMPLICATIONS No Complications PROCEDURE MEDICATIONS Versed 1 mg IV Fentanyl 50 mcg IV Oxygen: 2 L/min via nasal cannula Heparin given IA 06/17/2021 08:12:47 SUMMARY OF HEMODYNAMIC DATA Time AIR REST ECG 07:56:36 Art 120/56 (80) 08:08:02 AO 109/60 (78) SA 08:14:17 LV 108/9, 15 08:19:12 LV 72/9, 15 08:19:18 LV 102/13, 19 08:20:16 LVp 104/16, 20 08:20:24 AOp 109/55 (77) 08:20:29 Signed By Shahzad Long MD On 06/17/2021 9:11:13 AM Shahzad Long MD
[2021-06-17] MEDS: Cholecalciferol (VIT D3) 25 MCG TABLET (1,000 UNITS) PO (10:51)
[2021-06-17] MEDS: Potassium Chloride Oral Tablet 20 MEQ PO (10:51)
[2021-06-17] MEDS: Spironolactone 25 MG Tablet 12.5 MG PO (10:51)
[2021-06-17] MEDS: DULoxetine Hcl 60 MG Capsule PO (10:51)
[2021-06-17] MEDS: Pantoprazole Sodium 40 MG Tablet PO (10:51)
[2021-06-17] MEDS: Enoxaparin 40 MG/0.4 ML Syringe SC (10:51)
[2021-06-17] MEDS: Folic Acid 1 MG Tablet PO (10:51)
[2021-06-17] MEDS: busPIRone 15 MG TABLET 7.5 MG PO (10:52)
[2021-06-17 11:45] LABS: Bedside Glucose 114 mg/dL (70-110)
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
== END 2021-06-17 14:27 | disposition home or self-care (01) | DRG 287 ==
LOC: ED 17:49 → PCU 19:44 → MS2 06-17 09:36
PROVIDERS: Emergency Provider Emergency Medicine; PCP Internal Medicine; Visit Provider Student in an Organized Health Care Education/Training Program
DX: I42.8 Other cardiomyopathies (principal); I50.22 Chronic systolic (congestive) heart failure; I51.81 Takotsubo syndrome; E78.5 Hyperlipidemia, unspecified; F41.9 Anxiety disorder, unspecified; F32.A Depression, unspecified; I11.0 Hypertensive heart disease with heart failure; J44.9 Chronic obstructive pulmonary disease, unspecified; K21.9 Gastro-esophageal reflux disease without esophagitis; I69.341 Monoplegia of lower limb following cerebral infarction affecting right dominant side; Z87.891 Personal history of nicotine dependence; Z79.899 Other long term (current) drug therapy; I25.2 Old myocardial infarction; Z86.718 Personal history of other venous thrombosis and embolism; Z90.49 Acquired absence of other specified parts of digestive tract; I25.10 Atherosclerotic heart disease of native coronary artery without angina pectoris; G47.33 Obstructive sleep apnea (adult) (pediatric); I34.0 Nonrheumatic mitral (valve) insufficiency
CPT/HCPCS: 36415; 70450; 70496; 70498; 70551; 71045; 80048; 80061; 82962; 84484; 85025; 85610; 85730; 87426; 92523; 92610; 93005; 93306; 93458; 94640; 97162; 97166; 97802; 99152; 99153; 99285; Q9957; Q9967; A4216; C1769; C1894; C8929

== ENCOUNTER 2021-09-19 08:37 | Emergency (ER) | payer MEDICARE, SELFPAY ==
[2021-09-19 08:37] VITALS: BP 159/107; PULSE 87; RESP 22; TEMP 36.6; O2SAT 90
--- NOTE | 2021-09-19 09:26 | CT_ITS ---
STUDY: CT ABDOMEN AND PELVIS WITHOUT CONTRAST REASON FOR EXAM: Female, 65 years old. Pain RADIATION DOSAGE (If Supplied By Facility): CTDIvol = ( 7.97 ) mGy, DLP = ( 366.38 ) mGycm TECHNIQUE: Transaxial images were obtained from the dome of the diaphragm to the symphysis pubis without oral contrast, and without intravenous contrast. Sagittal and coronal images were reconstructed. Individualized dose optimization techniques were used for this CT. COMPARISON: None. FINDINGS: The visualized lung bases are unremarkable. The visualized portions of the heart are within normal limits. Normal liver. There is non-visualization of the gallbladder, which may be secondary to either contraction or a prior cholecystectomy. Normal spleen. Normal pancreas. Normal bilateral adrenal glands. Normal right kidney. Normal left kidney. Normal visualized stomach. Normal small intestine. Normal colon. There is non-visualization of the appendix. There is diffuse atherosclerotic calcification of the abdominal aorta, without a demonstrated aneurysm. Normal inferior vena cava. Normal retroperitoneum. Normal urinary bladder. 2 cm oval mass of water attenuation within the left ovary consistent with a physiologic cyst, paraovarian cyst, or cystadenoma. Follow-up ultrasound is recommended in one year to document stability. Normal abdominal wall. Mild levoscoliosis of the lumbar spine. CT/Abdomen/Pelvis without Cont IMPRESSION: 2 cm left ovarian physiologic cyst, par ovarian cyst, or cystadenoma. Follow-up pelvic ultrasound is recommended in 1 year to document resolution or stability.. Electronically Signed: Oscar Craven MD at 10:46 EDT ,
--- NOTE | 2021-09-19 09:32 | EDS_ITS ---
HPI History of Present Illness Chief Complaint: Abd Pain Narrative Narrative: Patient presents with 2 weeks or more history of abdominal pain she has no nausea vomiting or diarrhea. She has no back pain or tearing sensation. She is denying urinary symptoms. She does have a history of COPD but she has no respiratory symptoms. [facility] Medical History Alcohol abuse Anxiety Anxiety and depression Chronic anemia Chronic systolic (congestive) heart failure CO2 narcosis COPD (chronic obstructive pulmonary disease) Daytime hypersomnia Essential (primary) hypertension Fall GERD (gastroesophageal reflux disease) Head concussion Hemorrhagic cerebrovascular accident (CVA) (02/09/17) History of DVT of lower extremity (02/11/17) History of non-ST elevation myocardial infarction (NSTEMI) (02/03/17) Hypercarbia Hyperlipidemia Insomnia Ischemic cerebrovascular accident (CVA) (02/06/17) Non-ischemic cardiomyopathy Non-rheumatic mitral regurgitation TIO (obstructive sleep apnea) Respiratory insufficiency Secondary pulmonary arterial hypertension Stroke Takotsubo cardiomyopathy (06/17/21) TIA (transient ischemic attack) (10/25/19) Weakness due to old stroke Home Medications aspirin 81 mg PO DAILY 11/03/20 [History Last Taken Unknown] cholecalciferol (vitamin D3) [Vitamin D3] 25 mcg PO DAILY 11/03/20 [History Last Taken Unknown] duloxetine 60 mg PO DAILY 11/03/20 [History Last Taken Unknown] folic acid 1 mg PO DAILY 11/03/20 [History Last Taken Unknown] pantoprazole [Protonix] 40 mg PO DAILY 11/03/20 [History Last Taken Unknown] potassium chloride 20 meq PO DAILY 11/03/20 [History Last Taken Unknown] ropinirole 0.5 mg PO QHS 11/03/20 [History Last Taken Unknown] spironolactone 12.5 mg PO DAILY 11/03/20 [History Last Taken Unknown] albuterol sulfate 90 mcg/actuation aerosol inhaler 2 puff INHALATION Q4H PRN #18 g 12/23/20 [Rx Last Taken Unknown] fluticasone fur. 100 mcg-umeclid 62.5 mcg-vilant 25 mcg inhalat.powder 1 inh INHALATION DAILY #60 ea 12/23/20 [Rx Last Taken Unknown] albuterol sulfate 1.25 mg INHALATION Q4H PRN 06/15/21 [History Last Taken Unknown] zolpidem 10 mg PO QHS 06/15/21 [History Last Taken Unknown] losartan 25 mg PO DAILY #30 tab 06/17/21 [Rx Last Taken Unknown] escitalopram oxalate 10 mg tablet 10 mg PO DAILY 07/07/21 [History Last Taken Unknown] mecobalamin (vitamin B12) 5,000 mcg disintegrating tablet mcg PO 07/07/21 [History Last Taken Unknown] carvedilol 12.5 mg tablet 12.5 mg PO BID #60 tab 09/10/21 [Rx Last Taken Unknown] Allergy/AdvReac Type Severity Reaction Status Date / Time tetanus and diphtheria Allergy Hives Verified 09/18/21 12:17 toxoids [tetanus & diphtheria toxoids] Family History Sister Cancer lung Father Cancer lung Mother Cancer lung Surgical History H/O: section History of bilateral cataract extraction History of cholecystectomy History of left heart catheterization (06/17/21) History of lumpectomy Hx of appendectomy Social History household members: none Smoking Status: Former smoker how long ago did patient quit smokin, 1pk/day second hand exposure: Yes alcohol intake: former substance use type: does not use what type of physical activity do you participate in: walking frequency: daily ROS ROS ED ROS Narrative Past medical history: Reviewed, consistent with prior MT and cardiomyopathy secondary to [place] Subu's, nicotine dependence, COPD requiring oxygen, CHF, TIA, CVA, TIO Medications: Reviewed Social history: Noncontributory Review of systems: All systems negative except as indicated General: No fever Eyes: No visual changes ENT: No upper airway congestion, normal voice Neck: No neck pain Cardiovascular: No chest pain Respiratory: Chronic dyspnea she has no change. Gastrointestinal: Abdominal pain as in HPI Genitourinary: No dysuria Musculoskeletal: Denies myalgias no difficulty with ambulation Skin: No rash Neurological: No memory loss, confusion or any focal weakness Psych: No recent behavioral changes Hematologic: No easy bleeding or easy bruising EXAM Physical Exam Narrative Exam Narrative: Physical exam General: Patient appears uncomfortable. She appears chronically ill. She does not appear acutely ill. Head: Normocephalic, Atraumatic Eyes: Conjunctiva not pale ENT: Moist mucous membranes Neck: Supple, Nontender, No lymphadenopathy Cardiovascular: Regular rate, Regular rhythm Respiratory: No distress, coarse bilateral breath sounds. She is speaking in full sentences. Abdomen: Soft, tenderness throughout the abdomen, most of the tenderness is around the periumbilical region, she does not have any guarding. Back: Nontender, Normal Inspection. Negative for: CVA tenderness Extremities: Nontender, No edema Skin: Normal color, No rash Neurological: Alert, Normal Strength, Normal Sensation Psychological: Normal affect Const Vital Signs: 09/19/21 08:37 09/19/21 11:18 Temperature 97.9 F Temperature Source Temporal Pulse Rate 87 88 Respiratory Rate 22 H 14 Blood Pressure 159/107 H 123/83 H Blood Pressure Mean 124 96 Pulse Ox 90 99 Oxygen Delivery Method Room Air Room Air MDM MDM MDM Narrative Medical decision making narrative: Patient has a normal emergency department work-up. At this time I do not see any signs or symptoms of intra-abdominal catastrophe, there could be a ovarian cyst present, ultrasound is recommended within a year. She can follow-up with PCP or her OB for this I informed her. Otherwise I believe she can be safely discharged home. Lab Data Labs: Laboratory Results - last 24 hr 09/19/21 09/19/21 09:35 09:35 WBC 13.0 H RBC 3.84 L Hgb 11.5 L Hct 37.1 MCV 96.6 MCH 29.9 MCHC 31.0 L RDW Std Deviation 47.5 H RDW Coeff of Deonte 13.5 Plt Count 249 MPV 10.7 Immature Gran % (Auto) 0.400 Neut % (Auto) 74.8 H Lymph % (Auto) 15.4 L [place] % (Auto) 7.2 Eos % (Auto) 1.7 Baso % (Auto) 0.5 Absolute Neuts (auto) 9.8 H Absolute Lymphs (auto) 2.01 Nucleated RBC % 0 Sodium 137 Potassium 4.3 Chloride 103 Carbon Dioxide 35.0 H Anion Gap -1 L BUN 20 H Creatinine 0.87 Estim Creat Clear Calc 54.66 Est GFR (MDRD) Af Amer 83 Est GFR (MDRD) Non-Af 69 BUN/Creatinine Ratio 23.0 H Glucose 111 H Calcium 8.7 Total Bilirubin 0.40 AST 14 L ALT 20 Alkaline Phosphatase 83 Total Protein 7.4 Albumin 3.6 Globulin 3.8 Albumin/Globulin Ratio 0.9 Lipase 448 H Radiography Diagnostic Testing: Clinical Impression(s) from Imaging Studies Abdomen/Pelvis CT 09/19/21 09:26 IMPRESSION: 2 cm left ovarian physiologic cyst, par ovarian cyst, or cystadenoma. Follow-up pelvic ultrasound is recommended in 1 year to document resolution or stability.. Electronically Signed: Oscar Craven MD at 10:46 EDT , Discharge Plan Triage Chief Complaint: Abd Pain ED Provider: Jadon Garcia Dx/Rx/DC Orders Clinical Impression: Abdominal pain Instructions: Abdominal Pain Prescriptions: No Action albuterol sulfate [Ventolin HFA] 90 mcg/actuation HFA aerosol inhaler 2 puff inhalation Q4H PRN (Reason: shortness of breath or wheezing) Qty: 18 RF: 6 [id number]-kptuhlvc 100-62.5-25 mcg blister with device 1 inh inhalation DAILY Qty: 60 RF: 3 escitalopram oxalate [Lexapro] 10 mg tablet 10 mg PO DAILY RF: 0 mecobalamin (vitamin B12) 5,000 mcg tablet,disintegrating PO RF: 0 spironolactone 25 mg Tablet 12.5 mg PO DAILY RF: 0 pantoprazole [Protonix] 40 mg Tablet,Delayed Release (Dr/Ec) 40 mg PO DAILY RF: 0 ropinirole 0.5 mg Tablet 0.5 mg PO QHS RF: 0 folic acid 1 mg Tablet 1 mg PO DAILY RF: 0 aspirin 81 mg Tablet 81 mg PO DAILY RF: 0 duloxetine 60 mg Capsule,Delayed Release(Dr/Ec) 60 mg PO DAILY RF: 0 cholecalciferol (vitamin D3) [Vitamin D3] 25 mcg (1,000 unit) Tablet 25 mcg PO DAILY RF: 0 potassium chloride 20 mEq Tablet Extended Release 20 meq PO DAILY RF: 0 albuterol sulfate 1.25 mg/3 mL Solution For Nebulization 1.25 mg INHALATION Q4H PRN (Reason: Shortness Of Breath Or Wheezing) RF: 0 zolpidem 10 mg tablet 10 mg PO QHS RF: 0 losartan 25 mg Tablet 25 mg PO DAILY Qty: 30 RF: 1 carvedilol 12.5 mg tablet 12.5 mg PO BID Qty: 60 RF: 11 Primary Care Provider: Maryam Pineda Referrals: Maryam Pineda MD [Primary Care Provider] - 2 Days Activity Restrictions/Additional Instructions: You have an ovarian cyst, it could be a mass therefore you need an ultrasound within the next year to make sure it improves. Otherwise follow-up with your regular doctor and your [employer]E[facility] [employer]INE[employer] doctor. Disposition Disposition: Home, Self Care
[2021-09-19 09:44] LABS: Absolute Lymphocyte Count 2.01 X10^3/uL (0.83-4.51); Absolute Neutrophil Count 9.8 X10^3/uL (2.0-7.7); Basophil# 0.06 X10^3/uL; Basophil% 0.5 % (0-1); Eosinophil# 0.22 X10^3/uL; Eosinophils% 1.7 % (0-5); Hematocrit 37.1 % (37-47); Hemoglobin 11.5 g/dL (12.0-15.0); Lymphocyte # 2.01 X10^3/ul (0.83-4.51); Lymphocyte % 15.4 % (19-41); Mean Corpuscular Hgb 29.9 pg (27.0-32.0); Mean Corpuscular Volume 96.6 fL (81-99); Mean Platelet Vol. 10.7 fl (6.2-12.0); Monocyte# 0.94 X10^3/uL; Monocyte% 7.2 % (0-10); NRBC Flagged by Analyzer 0 % (0-5); Neutrophil # 9.76 X10^3/uL (2.7-7.7); Neutrophil % 74.8 % (47-70); Platelet Count 249 K/mm3 (150-450); RBC Distribution Width CV 13.5 % (11.6-14.6); RBC Distribution Width SD 47.5 fl (35.1-43.9); Red Blood Count 3.84 M/mm3 (4.2-5.4)
[2021-09-19] MEDS: Morphine 4 MG/ML Syringe IV (09:57)
[2021-09-19] MEDS: Ondansetron 4 MG/2 ML Vial IV (09:58)
[2021-09-19 09:59] LABS: ALB/GLOB Ratio 0.9 RATIO (0.9-2.4); AST(SGOT) 14 U/L (15-37); Alanine Aminotransfer ALT/SGPT 20 U/L (13-56); Albumin, Serum 3.6 g/dL (3.2-5.0); Alkaline Phosphatase 83 U/L (45-117); Anion Gap -1 (5-15); BUN 20 mg/dL (7-18); Calcium,Total 8.7 mg/dL (8.5-10.1); Chloride 103 mmol/L (98-107); Creatinine, Serum 0.87 mg/dL (0.55-1.02); EST Glomerular Filtration Rate 69 mL/min (>60); Est Glom Filt Rate - Afr Amer 83 mL/min (>60); Estimated Creatinine Clearance 54.66 ml/min; Globulin 3.8 g/dL (2.2-4.2); Glucose 111 mg/dL (74-106); Lipase 448 U/L (73-393); Potassium 4.3 mmol/L (3.5-5.1); Protein, Total 7.4 g/dL (6.4-8.2); Sodium Level 137 mmol/L (136-145)
[2021-09-19 11:18] VITALS: BP 123/83; PULSE 88; RESP 14; O2SAT 99
--- NOTE | 2021-09-19 11:44 | CT_ITS ---
STUDY: CT BRAIN WITHOUT CONTRAST REASON FOR EXAM: Female, 65 years old. confusion RADIATION DOSAGE (If Supplied By Facility): CTDIvol = ( 44.99 ) mGy, DLP = ( 796.11 ) mGycm TECHNIQUE: Transaxial CT imaging of the brain was performed without administration of intravenous contrast material. Individualized dose optimization techniques were used for this CT. COMPARISON: 06/15/2021 FINDINGS: Normal soft tissue structures. Normal calvarium. Normal size ventricles and extra-axial spaces for the patient''s age. Normal white matter tracts of the cerebral hemispheres. Normal basal ganglia and thalami. Normal brainstem. Normal cerebellum. There is no intracranial hemorrhage. No change in the encephalomalacia within the right occipital lobe in the posterior left parietal lobe consistent with prior infarcts. Normal visualized paranasal sinuses. CT/Brain/Head without Contrast IMPRESSION: Chronic involutional changes of the brain. Electronically Signed: Oscar Craven MD at 12:18 EDT ,
--- NOTE | 2021-09-19 11:50 | RAD_ITS ---
STUDY: X-RAY CHEST REASON FOR EXAM: Female, 65 years old. sob TECHNIQUE: AP COMPARISON: 06/15/2021 FINDINGS: EKG leads project over the chest. The lungs are clear and expanded. There is no demonstrated pleural abnormality. Normal size heart. Normal mediastinum and jacinto. Normal visualized pulmonary arteries. Normal visualized aortic arch and descending thoracic aorta. Normal visualized thoracic spine. Normal visualized ribs, clavicles, and shoulders. There is no demonstrated abnormality of the visualized soft tissue structures of the upper abdomen. RAD/Chest 1 View (Portable) IMPRESSION: Nonacute portable x-ray examination of the chest. Electronically Signed: Anurag Mayer MD ([place]) at 12:30 EDT ,
[2021-09-19 11:58] LABS: Bacteria 0 SEEN /hpf (None Seen); Mucous, Urine 0 SEEN /hpf (<or=2+); Red Blood Cells-Urine 0 SEEN /hpf (0-5); White Blood Cells 0 SEEN /hpf (0-5)
[2021-09-19 12:02] LABS: Color, Urine Yellow (Yellow); Glucose, Dipstick Normal (Normal); Ketone-Dipstick Negative (Negative); Leukocyte Esterase-Dipstick Negative /ul (Negative); Nitrite-Dipstick Negative (Negative); Occult Blood-Urine 10 /ul (Negative); Protein-Dipstick Negative (Negative); Specific Gravity, Urine 1.025 (1.002-1.030); Urine Bilirubin Dipstick Negative (Negative); Urine Clarity Clear (Clear); Urine Urobilinogen 1 mg/dl (Normal)
[2021-09-19 12:06] LABS: Squamous Epithelial Cells - UA 0-5 SEEN /hpf (5-10)
[2021-09-19 12:25] LABS: Troponin-I HS 13 pg/mL (3.0-54.0)
[2021-09-19] MEDS: Ipratropium/Albuterol Sulfate 3 ML AMPUL.NEB INHALATION (12:48)
[2021-09-19 12:50] VITALS: PULSE 104; RESP 24
[2021-09-19 13:06] LABS: Base Excess 4 mmol/L (-2 to +2); Bicarbonate 30.7 mmol/L (22-26); Blood Gas Specimen Type ART; O2 Delivery Device Cannula; PO2 155 mmHG (75-100); SITE L Radial; SO2 99 % (95-99); Total Carbon Dioxide 33 mmol/L; pCO2 70.2 mmHg (35-45); pH 7.25 (7.35-7.45)
[2021-09-19 13:09] VITALS: BP 109/79; PULSE 89; RESP 18; O2SAT 97
[2021-09-19 13:25] VITALS: PULSE 108; RESP 12; RESP 20; O2SAT 96
--- NOTE | 2021-09-19 15:10 | CPS ---
Critical value verified times two.Informed MD.Verified by read back.
[2021-09-19 15:11] LABS: Allen Test Positive; Base Excess 7 mmol/L (-2 to +2); Bicarbonate 33.9 mmol/L (22-26); Blood Gas Specimen Type ART; O2 Delivery Device Cannula; PO2 85 mmHG (75-100); SITE L Radial; SO2 94 % (95-99); Total Carbon Dioxide 36 mmol/L; pCO2 74.5 mmHg (35-45); pH 7.27 (7.35-7.45)
[2021-09-19 15:57] VITALS: BP 109/72; PULSE 96; RESP 29; O2SAT 98
== END 2021-09-19 15:58 | disposition home or self-care (01) ==
PROVIDERS: Emergency Provider Emergency Medicine; PCP Internal Medicine; Visit Provider Emergency Medicine
DX: R10.9 Unspecified abdominal pain (principal); G47.33 Obstructive sleep apnea (adult) (pediatric); Z86.73 Personal history of transient ischemic attack (TIA), and cerebral infarction without residual deficits; Z86.718 Personal history of other venous thrombosis and embolism; Z87.891 Personal history of nicotine dependence
CPT/HCPCS: 36600; 70450; 71045; 74176; 80053; 81001; 82803; 83690; 84484; 85025; 94002; 94640; 96374; 96375; 99283; A4216; J2405

== ENCOUNTER 2021-09-21 11:24 | Emergency (ER) | payer MEDICARE, SELFPAY ==
[2021-09-21 11:25] VITALS: PULSE 92; RESP 16; TEMP 36.3; O2SAT 96; BMI 24.2
--- NOTE | 2021-09-21 11:49 | ED.RN ---
SEEN YESTERDAY FOR SAME SYMPTOMS. HAS NOT GOTTEN ANY BETTER.
[2021-09-21 12:32] VITALS: BP 107/48; PULSE 83; RESP 22; O2SAT 100
--- NOTE | 2021-09-21 12:48 | EDS_ITS ---
HPI History of Present Illness Chief Complaint: Chest Pain Informant: patient Onset/Context/Timing Onset: Yesterday Activity at onset: gradual Timing: Intermittent Quality: Positive for Sharp Location: Left Chest Worsened By: Movement of Torso Relieved By: Nothing Associated Symptoms: Negative for Nausea, Vomiting, Diaphoresis, Dyspnea, Cough, Fever, Lightheadedness, Acid Reflux and Palpitations Narrative Narrative: Patient presents with chest pain that began last night. Patient states it is gradually gotten worse. Patient states it comes and goes. Patient states it is sharp. Patient states it is over the left chest area. Patient states it is worse with movement of her chest. Patient states nothing seems to help with it. Patient denies any shortness of breath or cough. Patient denies any diaphoresis. Patient denies any nausea or vomiting. Patient denies any fevers or chills. Patient denies any PE risk factors. CVD Risk Factors: Negative for Hypertension, Diabetes, Hypercholesterolemia, Family History 1' </=55 and Smoking PE Risk Factors: Negative for Recent Travel/Surgery, Recent Immobilization, Prior DVT or PE and Cancer [facility] Medical History Alcohol abuse Anxiety Anxiety and depression Chronic anemia Chronic systolic (congestive) heart failure CO2 narcosis COPD (chronic obstructive pulmonary disease) Daytime hypersomnia Essential (primary) hypertension Fall GERD (gastroesophageal reflux disease) Head concussion Hemorrhagic cerebrovascular accident (CVA) (02/09/17) History of DVT of lower extremity (02/11/17) History of non-ST elevation myocardial infarction (NSTEMI) (02/03/17) Hypercarbia Hyperlipidemia Insomnia Ischemic cerebrovascular accident (CVA) (02/06/17) Non-ischemic cardiomyopathy Non-rheumatic mitral regurgitation TIO (obstructive sleep apnea) Respiratory insufficiency Secondary pulmonary arterial hypertension Stroke Takotsubo cardiomyopathy (06/17/21) TIA (transient ischemic attack) (10/25/19) Weakness due to old stroke Home Medications aspirin 81 mg PO DAILY 11/03/20 [History Last Taken Unknown] cholecalciferol (vitamin D3) [Vitamin D3] 25 mcg PO DAILY 11/03/20 [History Last Taken Unknown] duloxetine 60 mg PO DAILY 11/03/20 [History Last Taken Unknown] folic acid 1 mg PO DAILY 11/03/20 [History Last Taken Unknown] pantoprazole [Protonix] 40 mg PO DAILY 11/03/20 [History Last Taken Unknown] potassium chloride 20 meq PO DAILY 11/03/20 [History Last Taken Unknown] ropinirole 0.5 mg PO QHS 11/03/20 [History Last Taken Unknown] spironolactone 12.5 mg PO DAILY 11/03/20 [History Last Taken Unknown] albuterol sulfate 90 mcg/actuation aerosol inhaler 2 puff INHALATION Q4H PRN #18 g 12/23/20 [Rx Last Taken Unknown] fluticasone fur. 100 mcg-umeclid 62.5 mcg-vilant 25 mcg inhalat.powder 1 inh INHALATION DAILY #60 ea 12/23/20 [Rx Last Taken Unknown] albuterol sulfate 1.25 mg INHALATION Q4H PRN 06/15/21 [History Last Taken Unknown] zolpidem 10 mg PO QHS 06/15/21 [History Last Taken Unknown] losartan 25 mg PO DAILY #30 tab 06/17/21 [Rx Last Taken Unknown] escitalopram oxalate 10 mg tablet 10 mg PO DAILY 07/07/21 [History Last Taken Unknown] mecobalamin (vitamin B12) 5,000 mcg disintegrating tablet mcg PO 07/07/21 [History Last Taken Unknown] carvedilol 12.5 mg tablet 12.5 mg PO BID #60 tab 09/10/21 [Rx Last Taken Unknown] Allergy/AdvReac Type Severity Reaction Status Date / Time tetanus and diphtheria Allergy Hives Verified 09/18/21 12:17 toxoids [tetanus & diphtheria toxoids] Family History Sister Cancer lung Father Cancer lung Mother Cancer lung Surgical History H/O: section History of bilateral cataract extraction History of cholecystectomy History of left heart catheterization (06/17/21) History of lumpectomy Hx of appendectomy Social History household members: none Smoking Status: Former smoker how long ago did patient quit smokin, 1pk/day second hand exposure: Yes alcohol intake: former substance use type: does not use what type of physical activity do you participate in: walking frequency: daily ROS ROS ED Constitutional Constitutional ED: Denies chills or fever(s) Eyes Eyes: Denies blurry vision or change in vision ENT ENT ED: Denies rhinorrhea or sore throat Cardiovascular Cardiovascular: Reports chest pain; Denies palpitations Respiratory/Chest Respiratory/Chest: Reports dyspnea; Denies cough Gastrointestinal Gastrointestinal: Reports abdominal pain; Denies nausea or vomiting Genitourinary Genitourinary ED: Denies dysuria or hematuria Musculoskeletal Musculoskeletal: Denies back pain or neck pain Integumentary Denies abscess or rash Neurologic Neurologic: Reports headache(s); Denies weakness Allergic/Immunologic Allergic/Immunologic ED: Denies mouth swelling or urticaria EXAM Physical Exam Const Vital Signs: 09/21/21 11:25 09/21/21 11:49 09/21/21 12:32 Temperature 97.4 F L Temperature Source Temporal Pulse Rate 92 83 Respiratory Rate 16 22 H Respiratory Effort Normal Non-Labored Blood Pressure 107/48 L Blood Pressure Mean 67 Pulse Ox 96 100 Oxygen Delivery Method Room Air Nasal Cannula Oxygen Flow Rate (L/min) 2 09/21/21 13:15 09/21/21 14:20 Temperature Temperature Source Pulse Rate 95 87 Respiratory Rate 18 22 H Respiratory Effort Blood Pressure 115/68 113/54 L Blood Pressure Mean 83 73 Pulse Ox 96 98 Oxygen Delivery Method Nasal Cannula Nasal Cannula Oxygen Flow Rate (L/min) 2 2 Positive well nourished and well developed General Appearance ED: well developed and NAD HEENT normocephalic and atraumatic Eyes PERRL and EOMs intact bilaterally Neck supple and no JVD Chest Wall Chest: tenderness sternum, costochondral junction 5th rib, 6th rib and 7th rib and costal cartilage left Resp normal respiratory effort and clear to auscultation bilaterally Effort and Inspection: Negative for respiratory distress Cardio regular rate, regular rhythm and no murmurs GI normal to inspection, nondistended, normoactive bowel sounds, soft to palpation, non-tender and non-distended Extremity normal to inspection General Extremety ED: Negative for edema or tenderness General Extremity: Negative for edema Neuro oriented x3, CN's II-XII intact bilaterally and no sensory deficits noted Sensorium / Orientation: awake and alert Motor Exam: strength 5/5 throughout Psych mental status grossly normal Heart Score History: Slightly/Non-Suspicious ECG: Normal Age: >/= 65 years Risk Factors: >/= 3 Risk Factors or History of CAD Troponin: </= Normal Limit Score: 4 MDM MDM MDM Narrative Medical decision making narrative: Patient was given a dose of morphine and Zofran here. EKG was obtained. On my interpretation, it showed a normal sinus rhythm with a rate of 84. OH interval, QRS interval, and QTc intervals were all normal. [place] was normal. There are no acute ST or T wave changes. CBC shows a leukocytosis of 22.3. Patient denies taking any steroids recently. Patient denies any fevers or chills. Patient has no infectious symptoms. Portable 1 view chest x-ray was obtained. On my interpretation, lung smith are clear. There is normal cardiac silhouette. Bony thorax is normal. There is no acute process noted. Radiologist also interpreted the x-ray and agrees. Basic metabolic profile was obtained and was within normal limits. PT with INR and PTT were normal. High-sensitivity troponin was normal at 7. Urinalysis does not show any evidence of urinary tract infection. Patient was advised of her findings. Patient has a HEART score of 4. Patient was advised to follow-up with her primary care physician in 3 to 5 days for reevaluation. Since the patient has no fevers chills or other signs of any infection, I do not feel that she needs an antibiotic based solely on her elevated white blood cell count. Patient understood and was agreeable with the plan. All questions were answered. Lab Data Attestation: I reviewed the patient's lab results. Labs: Laboratory Results - last 24 hr 09/21/21 09/21/21 09/21/21 11:40 11:40 11:40 WBC 22.3 H RBC 4.17 L Hgb 12.6 Hct 39.8 MCV 95.4 MCH 30.2 MCHC 31.7 L RDW Std Deviation 47.2 H RDW Coeff of [place]onte 13.3 Plt Count 243 MPV 11.1 Immature Gran % (Auto) 0.500 Neut % (Auto) 89.2 H Lymph % (Auto) 4.5 L [place] % (Auto) 5.4 Eos % (Auto) 0.1 Baso % (Auto) 0.3 Absolute Neuts (auto) 19.9 H Absolute Lymphs (auto) 1.00 Nucleated RBC % 0 PT 12.4 INR 1.0 APTT 21.2 L Sodium 134 L Potassium 4.2 Chloride 99 Carbon Dioxide 32.0 Anion Gap 3 L BUN 27 H Creatinine 0.98 Estim Creat Clear Calc 48.76 Est GFR (MDRD) Af Amer 73 Est GFR (MDRD) Non-Af 60 BUN/Creatinine Ratio 27.6 H Glucose 150 H Calcium 8.5 Troponin I High Sens 7 Urine Color Urine Clarity Urine pH Ur Specific [place] Urine Protein Urine Glucose (UA) Urine Ketones Urine Occult Blood Urine Nitrite Urine Bilirubin Urine Urobilinogen Ur Leukocyte Esterase Urine RBC Urine WBC Ur Squamous Epith Cells Urine Bacteria Urine Mucus 09/21/21 14:10 WBC RBC Hgb Hct MCV MCH MCHC RDW Std Deviation RDW Coeff of [place] Plt Count MPV Immature Gran % (Auto) Neut % (Auto) Lymph % (Auto) [place] % (Auto) Eos % (Auto) Baso % (Auto) Absolute Neuts (auto) Absolute Lymphs (auto) Nucleated RBC % PT INR APTT Sodium Potassium Chloride Carbon Dioxide Anion Gap BUN Creatinine Estim Creat Clear Calc Est GFR (MDRD) Af Amer Est GFR (MDRD) Non-Af BUN/Creatinine Ratio Glucose Calcium Troponin I High Sens Urine Color [place] Urine Clarity Sl. Cloudy Urine pH 5.0 Ur Specific [place] 1.020 Urine Protein 30 H Urine Glucose (UA) Normal Urine Ketones 15 H Urine Occult Blood 10 H Urine Nitrite Negative Urine Bilirubin 3 H Urine Urobilinogen 8 H Ur Leukocyte Esterase 100 H Urine RBC 0-5 SEEN Urine WBC 0 SEEN Ur Squamous Epith Cells 0-5 SEEN Urine Bacteria 1+ Urine Mucus 0 SEEN Radiography Chest X-Ray - ED: 1 View, Read by ED Physician, Read by Radiologist and No Acute Disease Diagnostic Testing: Clinical Impression(s) from Imaging Studies Chest X-Ray 09/21/21 12:53 IMPRESSION: Normal x-ray examination of the chest. Electronically Signed: Albert Patel MD at 13:46 EDT , EKG Initial EKG: Attestation: I personally reviewed and interpreted this EKG as follows: Interpretation: Sinus Rhythm (84) and No Acute Injury Pattern Discharge Plan Triage Chief Complaint: Chest Pain ED Provider: Pete Harris Dx/Rx/DC Orders Clinical Impression: Chest pain, Leukocytosis, unspecified Instructions: ED Chest Pain, Uncertain Cause Prescriptions: No Action albuterol sulfate [Ventolin HFA] 90 mcg/actuation HFA aerosol inhaler 2 puff inhalation Q4H PRN (Reason: shortness of breath or wheezing) Qty: 18 RF: 6 ddqmxxmeabb-fiwkiwnch-ybqnybev 100-62.5-25 mcg blister with device 1 inh inhalation DAILY Qty: 60 RF: 3 escitalopram oxalate [Lexapro] 10 mg tablet 10 mg PO DAILY RF: 0 mecobalamin (vitamin B12) 5,000 mcg tablet,disintegrating PO RF: 0 spironolactone 25 mg Tablet 12.5 mg PO DAILY RF: 0 pantoprazole [Protonix] 40 mg Tablet,Delayed Release (Dr/Ec) 40 mg PO DAILY RF: 0 ropinirole 0.5 mg Tablet 0.5 mg PO QHS RF: 0 folic acid 1 mg Tablet 1 mg PO DAILY RF: 0 aspirin 81 mg Tablet 81 mg PO DAILY RF: 0 duloxetine 60 mg Capsule,Delayed Release(Dr/Ec) 60 mg PO DAILY RF: 0 cholecalciferol (vitamin D3) [Vitamin D3] 25 mcg (1,000 unit) Tablet 25 mcg PO DAILY RF: 0 potassium chloride 20 mEq Tablet Extended Release 20 meq PO DAILY RF: 0 albuterol sulfate 1.25 mg/3 mL Solution For Nebulization 1.25 mg INHALATION Q4H PRN (Reason: Shortness Of Breath Or Wheezing) RF: 0 zolpidem 10 mg tablet 10 mg PO QHS RF: 0 losartan 25 mg Tablet 25 mg PO DAILY Qty: 30 RF: 1 carvedilol 12.5 mg tablet 12.5 mg PO BID Qty: 60 RF: 11 Primary Care Provider: Maryam Pineda Referrals: Maryam Pineda MD [Primary Care Provider] - 3-5 Days Disposition Disposition: Home, Self Care
--- NOTE | 2021-09-21 12:53 | RAD_ITS ---
STUDY: X-RAY CHEST REASON FOR EXAM: Female, 65 years old. Chest pain TECHNIQUE: Single frontal view of the chest. COMPARISON: 09/19/21. FINDINGS: The lungs are clear and expanded. There is no demonstrated pleural abnormality. Normal size heart. Normal mediastinum and jacinto. Normal visualized pulmonary arteries. Normal visualized aortic arch and descending thoracic aorta. Normal visualized thoracic spine. Normal visualized ribs, clavicles, and shoulders. There is no demonstrated abnormality of the visualized soft tissue structures of the upper abdomen. RAD/Chest 1 View (Portable) IMPRESSION: Normal x-ray examination of the chest. Electronically Signed: Albert Patel MD at 13:46 EDT ,
--- NOTE | 2021-09-21 12:53 | EKG12_ITS ---
Test Reason : GEN ILL Blood Pressure : / mmHG Vent. Rate : 094 BPM Atrial Rate : 094 BPM P-R Int : 114 ms QRS Dur : 080 ms QT Int : 334 ms P-R-T Axes : 072 057 063 degrees QTc Int : 417 ms Normal sinus rhythm Normal ECG Confirmed by MOISES MENDES, LINDSEY ([id number]), medical transcription editor NICOLE ARANGO ([id number]) on 09/25/2021 9:09:30 AM Referred By: PL Confirmed By:LINDSEY DE LEON MD
[2021-09-21 13:04] LABS: Absolute Neutrophil Count 19.9 X10^3/uL (2.0-7.7); Basophil# 0.06 X10^3/uL; Basophil% 0.3 % (0-1); Eosinophil# 0.02 X10^3/uL; Eosinophils% 0.1 % (0-5); Hematocrit 39.8 % (37-47); Hemoglobin 12.6 g/dL (12.0-15.0); Lymphocyte % 4.5 % (19-41); Mean Corp Hgb Conc 31.7 g/dL (32-36); Mean Corpuscular Hgb 30.2 pg (27.0-32.0); Mean Corpuscular Volume 95.4 fL (81-99); Mean Platelet Vol. 11.1 fl (6.2-12.0); Monocyte# 1.21 X10^3/uL; Monocyte% 5.4 % (0-10); NRBC Flagged by Analyzer 0 % (0-5); Neutrophil # 19.89 X10^3/uL (2.7-7.7); Neutrophil % 89.2 % (47-70); Platelet Count 243 K/mm3 (150-450); RBC Distribution Width CV 13.3 % (11.6-14.6); RBC Distribution Width SD 47.2 fl (35.1-43.9); Red Blood Count 4.17 M/mm3 (4.2-5.4); White Blood Count 22.3 K/mm3 (4.4-11.0)
[2021-09-21] MEDS: Ondansetron 4 MG/2 ML Vial IV (13:09)
[2021-09-21] MEDS: Morphine 4 MG/ML Syringe IV (13:09)
[2021-09-21 13:12] LABS: Prothrombin Time (Protime)PT. 12.4 SECONDS (11.7-14.9)
--- NOTE | 2021-09-21 13:12 | EKG12_ITS ---
Test Reason : CP Blood Pressure : / mmHG Vent. Rate : 084 BPM Atrial Rate : 084 BPM P-R Int : 112 ms QRS Dur : 090 ms QT Int : 394 ms P-R-T Axes : 078 051 060 degrees QTc Int : 465 ms Normal sinus rhythm Lateral infarct , age undetermined Abnormal ECG When compared with ECG of 19-SEP-2021 09:01, MANUAL COMPARISON REQUIRED, DATA IS UNCONFIRMED Confirmed by MOISES MENDES, LINDSEY ([id number]), editor index NICOLE ARANGO ([id number]) on 09/26/2021 9:01:07 AM Referred By: MICHAEL Confirmed By:LINDSEY DE LEON MD
[2021-09-21 13:13] LABS: Partial Thromboplast Time 21.2 Seconds (24.1-36.2)
[2021-09-21 13:15] VITALS: BP 115/68; PULSE 95; RESP 18; O2SAT 96
[2021-09-21 13:27] LABS: Anion Gap 3 (5-15); BUN 27 mg/dL (7-18); BUN/Creat Ratio 27.6 RATIO (10-20); Calcium,Total 8.5 mg/dL (8.5-10.1); Chloride 99 mmol/L (98-107); Creatinine, Serum 0.98 mg/dL (0.55-1.02); EST Glomerular Filtration Rate 60 mL/min (>60); Est Glom Filt Rate - Afr Amer 73 mL/min (>60); Estimated Creatinine Clearance 48.76 ml/min; Glucose 150 mg/dL (74-106); Potassium 4.2 mmol/L (3.5-5.1); Sodium Level 134 mmol/L (136-145); Troponin-I HS 7 pg/mL (3.0-54.0)
[2021-09-21 14:17] LABS: Mucous, Urine 0 SEEN /hpf (<or=2+); White Blood Cells 0 SEEN /hpf (0-5)
[2021-09-21 14:19] LABS: Color, Urine Amber (Yellow); Glucose, Dipstick Normal (Normal); Ketone-Dipstick 15 mg/dl (Negative); Leukocyte Esterase-Dipstick 100 /ul (Negative); Nitrite-Dipstick Negative (Negative); Occult Blood-Urine 10 /ul (Negative); Protein-Dipstick 30 mg/dl (Negative); Urine Clarity Sl. Cloudy (Clear); Urine Urobilinogen 8 mg/dl (Normal)
[2021-09-21 14:20] VITALS: BP 113/54; PULSE 87; RESP 22; O2SAT 98
[2021-09-21 14:30] LABS: Urine Bilirubin Dipstick 3 mg/dL (Negative)
[2021-09-21 14:33] LABS: Red Blood Cells-Urine 0-5 SEEN /hpf (0-5); Squamous Epithelial Cells - UA 0-5 SEEN /hpf (5-10)
[2021-09-21 14:34] LABS: Bacteria 1+ /hpf (None Seen)
[2021-09-21 15:21] VITALS: BP 121/58; PULSE 86; RESP 18; O2SAT 96
== END 2021-09-21 15:32 | disposition home or self-care (01) ==
PROVIDERS: Emergency Provider Emergency Medicine; PCP Internal Medicine; Visit Provider Emergency Medicine
DX: R07.9 Chest pain, unspecified (principal); D72.829 Elevated white blood cell count, unspecified; Z86.73 Personal history of transient ischemic attack (TIA), and cerebral infarction without residual deficits; Z87.891 Personal history of nicotine dependence
CPT/HCPCS: 96375; 96374; 99285; 71045; 80048; 81001; 84484; 85025; 85610; 85730; 93005; A4216; J2405

== ENCOUNTER 2021-09-22 23:17 | Inpatient (IN) | payer MEDICARE, SELFPAY ==
[2021-09-22 23:18] VITALS: BP 64/38; PULSE 101; RESP 24; TEMP 35.7; O2SAT 100; BMI 26.7
--- NOTE | 2021-09-22 23:46 | EX.ED.DYSGE1 ---
HPI History of Present Illness Chief Complaint: General Illness Informant: patient and family Narrative Narrative: Patient presents with nausea vomiting abdominal pain. Story varies a fair amount between the patient and 2 family members. The best summary I can get is as follows. Patient has been having symptoms for approximately a week. Most of this has been abdominal cramping. She has had intermittent diarrhea. It sounds like she started to get some blood in the diarrhea about 2 days ago. She also states she has vomited some red blood. However, family does not think she had any blood in vomitus and stool. She intermittently has had chest pain but she thinks has been a couple days. She has no back pain. Nothing really makes her symptoms better or worse. She has been seen and evaluated for this. She did not want admission earlier. She comes back because she seems to be getting worse and the symptoms are not improving. Despite the symptoms, it sounds like she may have ate and drank some foods today and kept them down. [facility] Medical History Alcohol abuse Anxiety Anxiety and depression Chronic anemia Chronic systolic (congestive) heart failure CO2 narcosis COPD (chronic obstructive pulmonary disease) Daytime hypersomnia Essential (primary) hypertension Fall GERD (gastroesophageal reflux disease) Head concussion Hemorrhagic cerebrovascular accident (CVA) (02/09/17) History of DVT of lower extremity (02/11/17) History of non-ST elevation myocardial infarction (NSTEMI) (02/03/17) Hypercarbia Hyperlipidemia Insomnia Ischemic cerebrovascular accident (CVA) (02/06/17) Non-ischemic cardiomyopathy Non-rheumatic mitral regurgitation TIO (obstructive sleep apnea) Respiratory insufficiency Secondary pulmonary arterial hypertension Stroke Takotsubo cardiomyopathy (06/17/21) TIA (transient ischemic attack) (10/25/19) Weakness due to old stroke Home Medications aspirin 81 mg PO DAILY 11/03/20 [History Last Taken Unknown] cholecalciferol (vitamin D3) [Vitamin D3] 25 mcg PO DAILY 11/03/20 [History Last Taken Unknown] duloxetine 60 mg PO DAILY 11/03/20 [History Last Taken Unknown] folic acid 1 mg PO DAILY 11/03/20 [History Last Taken Unknown] pantoprazole [Protonix] 40 mg PO DAILY 11/03/20 [History Last Taken Unknown] potassium chloride 20 meq PO DAILY 11/03/20 [History Last Taken Unknown] ropinirole 0.5 mg PO QHS 11/03/20 [History Last Taken Unknown] spironolactone 12.5 mg PO DAILY 11/03/20 [History Last Taken Unknown] albuterol sulfate 90 mcg/actuation aerosol inhaler 2 puff INHALATION Q4H PRN #18 g 12/23/20 [Rx Last Taken Unknown] fluticasone fur. 100 mcg-umeclid 62.5 mcg-vilant 25 mcg inhalat.powder 1 inh INHALATION DAILY #60 ea 12/23/20 [Rx Last Taken Unknown] albuterol sulfate 1.25 mg INHALATION Q4H PRN 06/15/21 [History Last Taken Unknown] zolpidem 10 mg PO QHS 06/15/21 [History Last Taken Unknown] losartan 25 mg PO DAILY #30 tab 06/17/21 [Rx Last Taken Unknown] escitalopram oxalate 10 mg tablet 10 mg PO DAILY 07/07/21 [History Last Taken Unknown] mecobalamin (vitamin B12) 5,000 mcg disintegrating tablet 5,000 mcg PO DAILY 07/07/21 [History Last Taken Unknown] carvedilol 12.5 mg tablet 12.5 mg PO BID #60 tab 09/10/21 [Rx Last Taken Unknown] hydrocodone-acetaminophen 1 tab PO Q6H PRN PRN 3 Days #10 tablet 09/21/21 [Rx Last Taken Unknown] Allergy/AdvReac Type Severity Reaction Status Date / Time tetanus and diphtheria Allergy Hives Verified 09/22/21 23:22 toxoids [tetanus & diphtheria toxoids] Family History Sister Cancer lung Father Cancer lung Mother Cancer lung Surgical History H/O: section History of bilateral cataract extraction History of cholecystectomy History of left heart catheterization (06/17/21) History of lumpectomy Hx of appendectomy Social History household members: none Smoking Status: Former smoker how long ago did patient quit smokin, 1pk/day second hand exposure: Yes alcohol intake: former substance use type: does not use what type of physical activity do you participate in: walking frequency: daily ROS ROS ED Constitutional Constitutional ED: Denies chills or fever(s) Eyes Eyes: Denies blurry vision ENT ENT ED: Denies rhinorrhea Cardiovascular Cardiovascular: Reports chest pain; Denies palpitations or racing heartbeat Respiratory/Chest Respiratory/Chest: Denies cough, dyspnea or sputum Gastrointestinal Gastrointestinal: Reports abdominal pain, diarrhea, nausea, vomiting and other Details: See history of present illness. Genitourinary Genitourinary ED: Reports other Details: Patient denies dysuria. She denies change in the amount of urination also. ; Denies dysuria or hematuria Musculoskeletal Musculoskeletal: Reports myalgias Integumentary Denies rash Neurologic Neurologic: Denies headache(s), paresthesias or weakness Psychiatric Psychiatric: Reports anxiety Endocrine Endocrinology: Denies polydipsia or polyuria Allergic/Immunologic Allergic/Immunologic ED: Denies urticaria EXAM Physical Exam Const Vital Signs: 09/22/21 23:18 09/22/21 23:23 09/23/21 00:37 Temperature 96.2 F L Temperature Source Temporal Pulse Rate 101 H 91 Respiratory Rate 24 H 16 Respiratory Effort Normal Non-Labored Respiratory Pattern Normal Blood Pressure 64/38 L 88/25 L Blood Pressure Mean 46 46 Pulse Ox 100 Oxygen Delivery Method Nasal Cannula Oxygen Flow Rate (L/min) 2 09/23/21 02:00 Temperature Temperature Source Pulse Rate 88 Respiratory Rate 22 H Respiratory Effort Respiratory Pattern Blood Pressure 71/58 L Blood Pressure Mean 62 Pulse Ox 96 Oxygen Delivery Method Nasal Cannula Oxygen Flow Rate (L/min) Positive well nourished and well developed Constitutional Narrative: Despite the patient's vital signs, she is awake alert and a reasonable informant. She is not confused at all. General Appearance ED: well developed; Negative for cyanotic or diaphoretic HEENT Reports dry mucous membranes Mouth ED: Yes dry mucous membranes Mouth: dry mucous membranes Eyes General Eye ED: Yes pale conjunctiva Neck supple Chest Wall inspection of chest normal and palpation of chest normal Resp normal respiratory effort and clear to auscultation bilaterally Effort and Inspection: Negative for pain with movement Auscultation: Negative for rales, rhonchi or wheezes Cardio regular rate and regular rhythm GI normal to inspection, nondistended, normoactive bowel sounds GI Narrative: Abdomen is soft. It does look to be slightly distended. It is really not tender on exam though. She states it hurts but not that badly. This is not pain out of proportion to exam though. Bowel sounds are slightly increased. Palpation: soft Back/Spine no CVA tenderness Extremity normal to inspection Neuro oriented x3 Sensorium / Orientation: alert Psych mental status grossly normal Skin no rashes or lesions noted and no wounds MDM MDM MDM Narrative Medical decision making narrative: Labs show continued elevation of her white count. Hemoglobin is stable. Electrolytes showed significant bump in her creatinine from yesterday's value. LFTs all had mild elevations. Lipase was now normal. Lactate was normal despite the above findings and blood pressure. Patient's blood pressure was coming up with fluids. Second liter was ordered. She is awake and alert. She is feeling better. CT did not show any acute process. With the patient's continued nausea vomiting, dehydration, significant acute kidney injury she will be admitted. Case was discussed with hospitalist. Lab Data Attestation: I reviewed the patient's lab results. Labs: Laboratory Results - last 24 hr 09/22/21 09/22/21 09/22/21 23:55 23:55 23:55 WBC 22.1 H RBC 3.64 L Hgb 11.3 L Hct 33.3 L MCV 91.5 MCH 31.0 MCHC 33.9 D RDW Std Deviation 46.9 H RDW Coeff of Deonte 13.9 Plt Count 233 MPV 11.0 Immature Gran % (Auto) 2.600 H Neut % (Auto) 83.0 H Lymph % (Auto) 6.6 L [place] % (Auto) 6.9 Eos % (Auto) 0.2 Baso % (Auto) 0.7 Absolute Neuts (auto) 18.3 H Absolute Lymphs (auto) 1.46 Nucleated RBC % 0 Differential Comment SCANNED Diff Path Review May foll Sodium 134 L Potassium 4.7 Chloride 96 L Carbon Dioxide 28.0 Anion Gap 10 BUN 67 H Creatinine 4.50 H Estim Creat Clear Calc 10.17 Est GFR (MDRD) Af Amer 13 L Est GFR (MDRD) Non-Af 10 L BUN/Creatinine Ratio 14.9 Glucose 110 H Lactic Acid Calcium 8.3 L Total Bilirubin 0.70 AST 39 H ALT 64 H Alkaline Phosphatase 264 H Troponin I High Sens 11 Total Protein 6.6 Albumin 2.6 L Globulin 4.0 Albumin/Globulin Ratio 0.6 L Lipase 34 L Blood Type A POSITIVE Antibody Screen NEGATIVE 09/22/21 23:55 WBC RBC Hgb Hct MCV MCH MCHC RDW Std Deviation RDW Coeff of [place]onte Plt Count MPV Immature Gran % (Auto) Neut % (Auto) Lymph % (Auto) [place] % (Auto) Eos % (Auto) Baso % (Auto) Absolute Neuts (auto) Absolute Lymphs (auto) Nucleated RBC % Differential Comment Diff Path Review Sodium Potassium Chloride Carbon Dioxide Anion Gap BUN Creatinine Estim Creat Clear Calc Est GFR (MDRD) Af Amer Est GFR (MDRD) Non-Af BUN/Creatinine Ratio Glucose Lactic Acid 1.4 Calcium Total Bilirubin AST ALT Alkaline Phosphatase Troponin I High Sens Total Protein Albumin Globulin Albumin/Globulin Ratio Lipase Blood Type Antibody Screen Radiography Diagnostic Testing: Clinical Impression(s) from Imaging Studies Chest X-Ray 09/23/21 00:01 IMPRESSION: 1. Borderline cardiomegaly without heart failure. 2. No other evidence of active cardiopulmonary disease. 3. Mild demineralization. 4. No interval change since the previous study of 09/21/2021. Electronically Signed: Darwin Huynh MD at 0:57 EDT , Abdomen/Pelvis CT 09/23/21 23:43 IMPRESSION: 1. Moderate constipation. 2. Appendix is not visualized; no abscesses are fluid collections in the appendix region. 3. No diverticulitis, colitis, or intestinal obstruction. 4. Contracted gallbladder without gallstones. 5. No pancreatitis. 6. Normal kidneys without obstructive uropathy. 7. No hernias, abscesses, or solid mass lesions. 8. Small anteverted uterus and no ovarian cystic or solid masses. Electronically Signed: Darwin Huynh MD at 1:14 EDT , Discharge Plan Dx/Rx/DC Orders Clinical Impression: Acute kidney injury, Leukocytosis, Dehydration, Nausea vomiting and diarrhea Disposition Disposition: [facility]
[2021-09-22] MEDS: 0.9% Normal Saline 1,000 ML 1000 ML IV (23:58)
[2021-09-23] VITALS (63 sets, daily range): BP systolic 66–115; BP diastolic 25–87; PULSE 83–104; RESP 12–34; TEMP 35.9–38.2; O2SAT 85–100; BMI 26.4
[2021-09-23] MEDS: Ondansetron 4 MG/2 ML Vial IV (00:01)
--- NOTE | 2021-09-23 00:01 | RAD_ITS ---
STUDY: PORTABLE AP UPRIGHT CHEST X-RAY OF 0015 HOURS ON 09/23/2021 REASON FOR EXAM: 65-year-old female with shortness of breath. TECHNIQUE: A single view portable AP upright chest x-ray was performed per protocol. COMPARISON: 09/21/2021. FINDINGS: Mild demineralization. Mild thoracic kyphosis. Borderline cardiomegaly without heart failure. No confluent infiltrates, atelectasis, effusion, or pulmonary mass lesions. No interval change since previous study. RAD/Chest 1 View (Portable) IMPRESSION: 1. Borderline cardiomegaly without heart failure. 2. No other evidence of active cardiopulmonary disease. 3. Mild demineralization. 4. No interval change since the previous study of 09/21/2021. Electronically Signed: Darwin Huynh MD at 0:57 EDT ,
[2021-09-23 00:07] LABS: Absolute Lymphocyte Count 1.46 X10^3/uL (0.83-4.51); Absolute Neutrophil Count 18.3 X10^3/uL (2.0-7.7); Basophil# 0.15 X10^3/uL; Basophil% 0.7 % (0-1); Eosinophil# 0.04 X10^3/uL; Eosinophils% 0.2 % (0-5); Hematocrit 33.3 % (37-47); Hemoglobin 11.3 g/dL (12.0-15.0); Lymphocyte # 1.46 X10^3/ul (0.83-4.51); Lymphocyte % 6.6 % (19-41); Mean Corp Hgb Conc 33.9 g/dL (32-36); Mean Corpuscular Volume 91.5 fL (81-99); Monocyte# 1.53 X10^3/uL; Monocyte% 6.9 % (0-10); NRBC Flagged by Analyzer 0 % (0-5); Neutrophil # 18.34 X10^3/uL (2.7-7.7); POSITIVE DIFFERENTIAL YES; POSITIVE MORPHOLOGY YES; Platelet Count 233 K/mm3 (150-450); RBC Distribution Width CV 13.9 % (11.6-14.6); RBC Distribution Width SD 46.9 fl (35.1-43.9); Red Blood Count 3.64 M/mm3 (4.2-5.4); White Blood Count 22.1 K/mm3 (4.4-11.0)
[2021-09-23 00:30] LABS: ALB/GLOB Ratio 0.6 RATIO (0.9-2.4); AST(SGOT) 39 U/L (15-37); Alanine Aminotransfer ALT/SGPT 64 U/L (13-56); Albumin, Serum 2.6 g/dL (3.2-5.0); Alkaline Phosphatase 264 U/L (45-117); Anion Gap 10 (5-15); BUN 67 mg/dL (7-18); BUN/Creat Ratio 14.9 RATIO (10-20); Calcium,Total 8.3 mg/dL (8.5-10.1); Chloride 96 mmol/L (98-107); Differential Indicated SCAN CRITERIA MET; EST Glomerular Filtration Rate 10 mL/min (>60); Est Glom Filt Rate - Afr Amer 13 mL/min (>60); Estimated Creatinine Clearance 10.17 ml/min; Glucose 110 mg/dL (74-106); Lipase 34 U/L (73-393); Potassium 4.7 mmol/L (3.5-5.1); Protein, Total 6.6 g/dL (6.4-8.2); Sodium Level 134 mmol/L (136-145); Troponin-I HS 11 pg/mL (3.0-54.0)
[2021-09-23 00:32] LABS: Differential Comment SCANNED; Lactic Acid 1.4 mmol/L (0.4-1.9)
[2021-09-23] MEDS: 0.9% Normal Saline 1,000 ML 999 ML IV ×2 (00:41→02:44)
--- NOTE | 2021-09-23 01:55 | PCM.HP.STD ---
Documented by User: FRED Gomez 09/23/21 02:12 HPI - General General Date of Admission: 09/23/21 Date of Service: 09/23/21 Chief Complaint: General illness, diarrhea HPI Narrative MARCO MAY, is a 65 F who presents with reports that she has been feeling ill for 2 days and has not been able to eat or drink much due to nausea. Patient also reports that she has had large amounts of diarrhea. Patient states that she has generalized abdominal pain. CT shows moderate constipation and contracted gallbladder without gallstones but is otherwise normal. Patient reports medical history of high blood pressure, GERD, COPD, depression, CHF. Patient also reports daily alcohol use. Patient will be admitted for observation and fluid resuscitation. [facility] Medical History (Updated 09/30/21 @ 02:23 by Nydia Gar) Alcohol abuse Anxiety Anxiety and depression Chronic anemia Chronic systolic (congestive) heart failure CO2 narcosis Congestive heart failure (CHF) COPD (chronic obstructive pulmonary disease) Daytime hypersomnia Essential (primary) hypertension Fall GERD (gastroesophageal reflux disease) Head concussion Hemorrhagic cerebrovascular accident (CVA) (02/09/17) History of DVT of lower extremity (02/11/17) History of non-ST elevation myocardial infarction (NSTEMI) (02/03/17) Hypercarbia Hyperlipidemia Insomnia Ischemic cerebrovascular accident (CVA) (02/06/17) Non-ischemic cardiomyopathy Non-rheumatic mitral regurgitation TIO (obstructive sleep apnea) Respiratory insufficiency Secondary pulmonary arterial hypertension Stroke Takotsubo cardiomyopathy (06/17/21) TIA (transient ischemic attack) (10/25/19) Weakness due to old stroke Home Medications aspirin 81 mg PO DAILY 11/03/20 [History Last Taken Unknown] cholecalciferol (vitamin D3) [Vitamin D3] 25 mcg PO DAILY 11/03/20 [History Last Taken Unknown] duloxetine 60 mg PO DAILY 11/03/20 [History Last Taken Unknown] folic acid 1 mg PO DAILY 11/03/20 [History Last Taken Unknown] pantoprazole [Protonix] 40 mg PO DAILY 11/03/20 [History Last Taken Unknown] potassium chloride 20 meq PO DAILY 11/03/20 [History Last Taken Unknown] ropinirole 0.5 mg PO QHS 11/03/20 [History Last Taken Unknown] spironolactone 12.5 mg PO DAILY 11/03/20 [History Last Taken Unknown] albuterol sulfate 90 mcg/actuation aerosol inhaler 2 puff INHALATION Q4H PRN #18 g 12/23/20 [Rx Last Taken Unknown] fluticasone fur. 100 mcg-umeclid 62.5 mcg-vilant 25 mcg inhalat.powder 1 inh INHALATION DAILY #60 ea 12/23/20 [Rx Last Taken Unknown] albuterol sulfate 1.25 mg INHALATION Q4H PRN 06/15/21 [History Last Taken Unknown] escitalopram oxalate 10 mg tablet 10 mg PO DAILY 07/07/21 [History Last Taken Unknown] mecobalamin (vitamin B12) 5,000 mcg disintegrating tablet 5,000 mcg PO DAILY 07/07/21 [History Last Taken Unknown] carvedilol 12.5 mg tablet 12.5 mg PO BID #60 tab 09/10/21 [Rx Last Taken Unknown] hydrocodone-acetaminophen 1 tab PO Q6H PRN PRN 3 Days #10 tablet 09/21/21 [Rx Last Taken Unknown] Allergy/AdvReac Type Severity Reaction Status Date / Time tetanus and diphtheria Allergy Hives Verified 09/29/21 22:42 toxoids [tetanus & diphtheria toxoids] Family History Sister Cancer lung Father Cancer lung Mother Cancer lung Surgical History H/O: section History of bilateral cataract extraction History of cholecystectomy History of left heart catheterization (06/17/21) History of lumpectomy Hx of appendectomy Social History household members: none Smoking Status: Former smoker how long ago did patient quit smokin, 1pk/day second hand exposure: Yes alcohol intake: former substance use type: does not use what type of physical activity do you participate in: walking frequency: daily ROS Constitutional Constitutional: Reports malaise; Denies anorexia, chills, fatigue, fever(s) or weakness Cardiovascular Cardiovascular: Denies chest pain, edema, palpitations or syncope Respiratory/Chest Respiratory/Chest: Denies cough, shortness of breath at rest, shortness of breath with exertion or wheezing Gastrointestinal Gastrointestinal: Reports abdominal pain, diarrhea, nausea and vomiting; Denies constipation Genitourinary Genitourinary: Denies dysuria Musculoskeletal Musculoskeletal: Denies back pain, extremity pain, joint pain, joint stiffness or joint swelling Integumentary Integumentary: Denies dry skin Neurologic Neurologic: Denies abnormal gait, abnormal speech, confusion, dizziness or focal weakness Psychiatric Psychiatric: Reports depression; Denies anxiety Endocrine Endocrinology: Denies change in body appearance Hematologic/Lymphatic Hematologic/Lymphatic: Denies anemia Vital Signs Vital Signs Vital Signs: 09/22/21 23:18 09/22/21 23:23 09/23/21 00:37 Temperature 96.2 F L Temperature Source Temporal Pulse Rate 101 H 91 Respiratory Rate 24 H 16 Respiratory Effort Normal Non-Labored Respiratory Pattern Normal Blood Pressure 64/38 L 88/25 L Blood Pressure Mean 46 46 Pulse Ox 100 Oxygen Delivery Method Nasal Cannula Oxygen Flow Rate (L/min) 2 Weight Weight: 151 lb 3.2 oz Body Mass Index (BMI) 26.7 Physical Exam Const alert, oriented x3 and no apparent distress General Appearance: cooperative HEENT normocephalic and head/scalp atraumatic Eyes conjunctivae normal and no scleral icterus Neck no lymphadenopathy and supple General: trachea midline Resp normal respiratory effort, normal air movement and clear to auscultation bilaterally Cardio regular rate, regular rhythm, S1 normal heart sound, S2 normal heart sound and peripheral pulses 2+ throughout GI Auscultation: hypoactive bowel sounds Palpation: firm and tender Extremity normal capillary refill and no clubbing, cyanosis or edema General Extremity: no tenderness to palpation of joints or extremities Skin General Skin Exam: no breakdown and turgor normal Lesions: no lesions Rashes: no rashes Neuro no focal motor deficits and no sensory deficits noted Speech: speech normal Motor Exam: general weakness Psych thought process normal, cooperative and affect normal Appearance: appropriate Results Lab / Micro Data Result Diagrams: 09/29/21 06:36 09/29/21 06:36 Labs: Laboratory Results - last 24 hr 09/22/21 23:55: WBC 22.1 H, RBC 3.64 L, Hgb 11.3 L, Hct 33.3 L, MCV 91.5, MCH 31.0, MCHC 33.9 D, RDW Std Deviation 46.9 H, RDW Coeff of [place]onte 13.9, Plt Count 233, MPV 11.0, Immature Gran % (Auto) 2.600 H, Neut % (Auto) 83.0 H, Lymph % (Auto) 6.6 L, [place] % (Auto) 6.9, Eos % (Auto) 0.2, Baso % (Auto) 0.7, Absolute Neuts (auto) 18.3 H, Absolute Lymphs (auto) 1.46, Nucleated RBC % 0, Differential Comment SCANNED, Diff Path Review November09/22/21 23:55: Sodium 134 L, Potassium 4.7, Chloride 96 L, Carbon Dioxide 28.0, Anion Gap 10, BUN 67 H, Creatinine 4.50 H, Estim Creat Clear Calc 10.17, Est GFR (MDRD) Af Amer 13 L, Est GFR (MDRD) Non-Af 10 L, BUN/Creatinine Ratio 14.9, Glucose 110 H, Calcium 8.3 L, Total Bilirubin 0.70, AST 39 H, ALT 64 H, Alkaline Phosphatase 264 H, Troponin I High Sens 11, Total Protein 6.6, Albumin 2.6 L, Globulin 4.0, Albumin/Globulin Ratio 0.6 L, Lipase 34 L 09/22/21 23:55: Blood Type A POSITIVE, Antibody Screen NEGATIVE 09/22/21 23:55: Lactic Acid 1.4 Radiology Impression Chest X-Ray 09/23/21 00:01 IMPRESSION: 1. Borderline cardiomegaly without heart failure. 2. No other evidence of active cardiopulmonary disease. 3. Mild demineralization. 4. No interval change since the previous study of 09/21/2021. Electronically Signed: Darwin Huynh MD at 0:57 EDT , Abdomen/Pelvis CT 09/23/21 23:43 IMPRESSION: 1. Moderate constipation. 2. Appendix is not visualized; no abscesses are fluid collections in the appendix region. 3. No diverticulitis, colitis, or intestinal obstruction. 4. Contracted gallbladder without gallstones. 5. No pancreatitis. 6. Normal kidneys without obstructive uropathy. 7. No hernias, abscesses, or solid mass lesions. 8. Small anteverted uterus and no ovarian cystic or solid masses. Electronically Signed: Darwin Huynh MD at 1:14 EDT , Assessment & Plan Assessment/Plan (1) Abdominal pain: QUALIFIERS: Abdominal location: generalized Qualified Code(s): R10.84 - Generalized abdominal pain (2) Acute renal failure: QUALIFIERS: Acute renal failure type: unspecified Qualified Code(s): N17.9 - Acute kidney failure, unspecified PLAN: 1. Acute abdominal pain -Admit to [facility] -CBC and BMP daily -C. difficile ordered -Urinalysis, urine culture, urine drug screen and serum alcohol level ordered -As needed Zofran ordered 2. Acute renal failure -We will hold nephrotoxic medications at this time -Patient likely severely dehydrated from diarrhea and vomiting -Daily BMP ordered -BUN and creatinine severely increased from yesterday labs 09/21/2021 showed BUN 27 and creatinine 0.98, labs 09/22/2021 show BUN 67 and creatinine 4.5 3. Elevated liver enzymes -Lab values for AST ALT and alkaline phosphatase elevated from prior labs on 09/03/2021 however lipase decreased from 448-34 -Liver panel ordered a.m. 4. Hypotension -We will hold all antihypertensives at this time -Vital signs per protocol -Patient received 2 L normal saline bolus in ER, will continue IV normal saline at 150 mL/h 5. COPD -Continue patient's home medication regimen except -As needed albuterol nebulizer treatments ordered 6. Depression -Continue duloxetine and escitalopram DVT prophylaxis-not indicated, observation status This patient was seen by Kavita Gomes, ASSIST[employer] MANAGER-C under the supervision of Dr. Fagan. 30 minutes spent in clinical coordination of patient's plan of care. Documented by User: Dr. Jadon Fagan MD 10/06/21 18:52 HPI - General General Date of Admission: 09/23/21 [facility] Medical History (Updated 09/30/21 @ 02:23 by Nydia Gar) Alcohol abuse Anxiety Anxiety and depression Chronic anemia Chronic systolic (congestive) heart failure CO2 narcosis Congestive heart failure (CHF) COPD (chronic obstructive pulmonary disease) Daytime hypersomnia Essential (primary) hypertension Fall GERD (gastroesophageal reflux disease) Head concussion Hemorrhagic cerebrovascular accident (CVA) (02/09/17) History of DVT of lower extremity (02/11/17) History of non-ST elevation myocardial infarction (NSTEMI) (02/03/17) Hypercarbia Hyperlipidemia Insomnia Ischemic cerebrovascular accident (CVA) (02/06/17) Non-ischemic cardiomyopathy Non-rheumatic mitral regurgitation TIO (obstructive sleep apnea) Respiratory insufficiency Secondary pulmonary arterial hypertension Stroke Takotsubo cardiomyopathy (06/17/21) TIA (transient ischemic attack) (10/25/19) Weakness due to old stroke Home Medications aspirin 81 mg PO DAILY 11/03/20 [History Last Taken Unknown] cholecalciferol (vitamin D3) [Vitamin D3] 25 mcg PO DAILY 11/03/20 [History Last Taken Unknown] duloxetine 60 mg PO DAILY 11/03/20 [History Last Taken Unknown] folic acid 1 mg PO DAILY 11/03/20 [History Last Taken Unknown] pantoprazole [Protonix] 40 mg PO DAILY 11/03/20 [History Last Taken Unknown] potassium chloride 20 meq PO DAILY 11/03/20 [History Last Taken Unknown] ropinirole 0.5 mg PO QHS 11/03/20 [History Last Taken Unknown] spironolactone 12.5 mg PO DAILY 11/03/20 [History Last Taken Unknown] albuterol sulfate 90 mcg/actuation aerosol inhaler 2 puff INHALATION Q4H PRN #18 g 12/23/20 [Rx Last Taken Unknown] fluticasone fur. 100 mcg-umeclid 62.5 mcg-vilant 25 mcg inhalat.powder 1 inh INHALATION DAILY #60 ea 12/23/20 [Rx Last Taken Unknown] albuterol sulfate 1.25 mg INHALATION Q4H PRN 06/15/21 [History Last Taken Unknown] escitalopram oxalate 10 mg tablet 10 mg PO DAILY 07/07/21 [History Last Taken Unknown] mecobalamin (vitamin B12) 5,000 mcg disintegrating tablet 5,000 mcg PO DAILY 07/07/21 [History Last Taken Unknown] carvedilol 12.5 mg tablet 12.5 mg PO BID #60 tab 09/10/21 [Rx Last Taken Unknown] hydrocodone-acetaminophen 1 tab PO Q6H PRN PRN 3 Days #10 tablet 09/21/21 [Rx Last Taken Unknown] Allergy/AdvReac Type Severity Reaction Status Date / Time tetanus and diphtheria Allergy Hives Verified 09/29/21 22:42 toxoids [tetanus & diphtheria toxoids] Family History Sister Cancer lung Father Cancer lung Mother Cancer lung Surgical History H/O: section History of bilateral cataract extraction History of cholecystectomy History of left heart catheterization (06/17/21) History of lumpectomy Hx of appendectomy Social History household members: none Smoking Status: Former smoker how long ago did patient quit smokin, 1pk/day second hand exposure: Yes alcohol intake: former substance use type: does not use what type of physical activity do you participate in: walking frequency: daily Results Lab / Micro Data Result Diagrams: 09/29/21 06:36 09/29/21 06:36 Charges/Coding Addendum Addendum: seen and examined agree with above assessment and plan
[2021-09-23 02:04] LABS: Mucous, Urine 0 SEEN /hpf (<or=2+); Red Blood Cells-Urine 0 SEEN /hpf (0-5); Squamous Epithelial Cells - UA 0 SEEN /hpf (5-10)
[2021-09-23 02:06] LABS: Color, Urine Amber (Yellow); Glucose, Dipstick 50 mg/dl (Normal); Ketone-Dipstick 5 mg/dl (Negative); Leukocyte Esterase-Dipstick 100 /ul (Negative); Nitrite-Dipstick Negative (Negative); Occult Blood-Urine 10 /ul (Negative); Protein-Dipstick 100 mg/dl (Negative); Specific Gravity, Urine 1.025 (1.002-1.030); Urine Clarity Sl. Cloudy (Clear); Urine Urobilinogen 4 mg/dl (Normal)
[2021-09-23 02:34] LABS: Urine Bilirubin Dipstick 3 mg/dL (Negative)
[2021-09-23 02:36] LABS: Amorphous Sediment 2+; Calcium Oxalate Crystals Ur 1+ /hpf (<or=2+); White Blood Cells 5-10 SEEN /hpf (0-5)
[2021-09-23 02:37] LABS: Transitional Epithelial - Ur 0-5 SEEN /hpf (0-5)
[2021-09-23 02:39] LABS: Bacteria 1+ /hpf (None Seen)
[2021-09-23 02:46] LABS: Amphetamine Urine VISTA NEGATIVE (<1000 ng/mL); Barbiturate Urine VISTA NEGATIVE (< 200 ng/mL); Benzodiazepine Urine VISTA POSITIVE (< 200 ng/mL); Cocaine Urine VISTA NEGATIVE (< 300 ng/mL); Ecstacy Urine VISTA NEGATIVE (< 500 ng/mL); Methadone Urine VISTA NEGATIVE (< 300 ng/mL); PCP Urine VISTA NEGATIVE (< 25 ng/mL); THC Urine VISTA NEGATIVE (< 50 ng/mL); Vista UDS pH Range 5
[2021-09-23] MEDS: 0.9% Normal Saline 1,000 ML 150 ML IV (03:55)
[2021-09-23] MEDS: 0.9% Saline Lock 10 ML Syringe IV (06:06)
[2021-09-23 06:26] LABS: Absolute Lymphocyte Count 0.83 X10^3/uL (0.83-4.51); Absolute Neutrophil Count 14.3 X10^3/uL (2.0-7.7); Basophil# 0.07 X10^3/uL; Basophil% 0.4 % (0-1); Eosinophil# 0.02 X10^3/uL; Eosinophils% 0.1 % (0-5); Hematocrit 32.1 % (37-47); Hemoglobin 10.2 g/dL (12.0-15.0); Lymphocyte # 0.83 X10^3/ul (0.83-4.51); Lymphocyte % 4.9 % (19-41); Mean Corp Hgb Conc 31.8 g/dL (32-36); Mean Corpuscular Volume 97.6 fL (81-99); Mean Platelet Vol. 10.6 fl (6.2-12.0); Monocyte# 1.39 X10^3/uL; Monocyte% 8.2 % (0-10); NRBC Flagged by Analyzer 0 % (0-5); Neutrophil # 14.25 X10^3/uL (2.7-7.7); Neutrophil % 84.6 % (47-70); POSITIVE MORPHOLOGY YES; Platelet Count 174 K/mm3 (150-450); RBC Distribution Width CV 14.1 % (11.6-14.6); RBC Distribution Width SD 49.9 fl (35.1-43.9); Red Blood Count 3.29 M/mm3 (4.2-5.4); White Blood Count 16.9 K/mm3 (4.4-11.0)
[2021-09-23 06:32] LABS: Differential Indicated SCAN CRITERIA MET
[2021-09-23] MEDS: Budesonide Respules 0.5 MG/2 ML AMPUL.NEB. INHALATION ×2 (06:35→19:35)
[2021-09-23] MEDS: Ipratropium/Albuterol Sulfate 3 ML AMPUL.NEB INHALATION ×3 (06:35→19:35)
[2021-09-23 06:55] LABS: AST(SGOT) 22 U/L (15-37); Alanine Aminotransfer ALT/SGPT 43 U/L (13-56); Alkaline Phosphatase 191 U/L (45-117); Anion Gap 7 (5-15); BUN 64 mg/dL (7-18); Bilirubin, Direct 0.16 mg/dL (0.00-0.30); Calcium,Total 6.9 mg/dL (8.5-10.1); Chloride 106 mmol/L (98-107); Creatinine, Serum 3.99 mg/dL (0.55-1.02); EST Glomerular Filtration Rate 12 mL/min (>60); Est Glom Filt Rate - Afr Amer 14 mL/min (>60); Estimated Creatinine Clearance 11.98 ml/min; Globulin 3.2 g/dL (2.2-4.2); Glucose 104 mg/dL (74-106); Potassium 4.9 mmol/L (3.5-5.1); Protein, Total 5.2 g/dL (6.4-8.2); Sodium Level 134 mmol/L (136-145)
--- NOTE | 2021-09-23 08:27 | US_ITS ---
STUDY: RENAL ULTRASOUND - COMPLETE REASON FOR EXAM: Female, 65 years old. GUME TECHNIQUE: Ultrasound evaluation of the kidneys was performed with real-time and static gusman-scale imaging. COMPARISON: None. FINDINGS: RIGHT KIDNEY: Normal location of the right kidney, which is normal in size. The right kidney measures 8.9 cm x 5 cm x 4.5 cm. There is a normal cortex of the right kidney. The renal cortex measures 1.1 cm. There is no right renal mass or cyst. There are no right renal calculi. There is no right hydronephrosis. DISTAL RIGHT URETER: There is non-visualization of the distal right ureter. There is no demonstrated right ureterovesical junction calculus. There is no demonstrated right ureteral jet. LEFT KIDNEY: Normal location of the left kidney, which is normal in size. The left kidney measures 10 cm x 4.8 cm x 4.1 cm. There is a normal cortex of the left kidney. The renal cortex measures 1.4 cm. There is no left renal mass or cyst. There are no left renal calculi. There is no left hydronephrosis. DISTAL LEFT URETER: There is non-visualization of the distal left ureter. There is no demonstrated left ureterovesical junction calculus. There is no demonstrated left ureteral jet. BLADDER: A LEMUS catheter is seen within a nondistended urinary bladder. US/Kidney and Bladder IMPRESSION: Normal ultrasound of the kidneys. Electronically Signed: Vinny Mcghee MD at 14:42 EDT ,
--- NOTE | 2021-09-23 08:52 | NURSING ---
This RN called and gave report to FINESSE Pires in ICU.
--- NOTE | 2021-09-23 09:04 | NURSING ---
This RN called and updated pt's daughter, Ameena and let her know pt was moved to ICU.
--- NOTE | 2021-09-23 09:34 | EX.PCM.CONCC ---
Assessment & Plan Assessment/Plan (1) Acute kidney injury: PLAN: RECOMMENDATIONS: 1. Place central venous catheter and initiate Levophed to maintain a mean arterial pressure at or above 65 mmHg. 2. Stop continuous IV fluids, given previous evidence of impaired ejection fraction. 3. Recheck lactate. 4. Given chest pain complaints, will obtain echocardiogram. 5. Hold home antihypertensives and nephrotoxic medications. 6. Check C. difficile, enteric panel and Covid antigen. 7. Start empiric antimicrobials. 8. Continue bronchodilators and inhaled corticosteroid. IMPRESSIONS: 1. Septic versus hypovolemic shock The patient presented to the hospital with a constellation of symptoms including abdominal pain and diarrhea. She has developed persistent tachypnea and has an elevated white blood cell count concerning for sepsis due to possible infectious colitis with acute sepsis related organ dysfunction as manifested by fluid refractory hypotension, acute kidney injury and altered mentation. The patient has been more than adequately volume resuscitated and remains hypotensive. Accordingly, she will be maintained on vasopressor support to maintain a mean arterial pressure at or above 65 mmHg. Although a definitive source of infection has yet to be identified, will start empiric antimicrobials. In addition, will check C. difficile, enteric panel and Covid antigen. Given that the patient did report some chest pain, an echocardiogram will be obtained. If there is improvement in her ejection fraction as compared to prior, will consider liberalizing IV fluids. 2. Acute kidney injury Most likely prerenal in etiology and related to intravascular volume depletion in the setting of GI losses. There has been some interval improvement in her creatinine. Recommend continuing vasopressor support in an attempt to maintain hemodynamic stability. Continue to monitor urine output for now. No current indication for renal replacement therapy. 3. Metabolic encephalopathy I do follow the patient in the pulmonary medicine clinic and she is clearly altered as compared to her baseline. I do suspect this is secondary to underlying metabolic derangements in the setting of #1. Continue supportive measures as noted above. Avoid sedating medications. 4. Abdominal pain/diarrhea Possibly due to self-limited viral gastroenteritis. However, we will plan to rule out C. difficile and other enteric pathogens. Antidiarrheals can be utilized if needed. 5. History of COPD/chronic hypoxemic respiratory failure/obstructive sleep apnea The patient has a known history of obstructive lung disease, for which I would recommend that she be maintained on scheduled bronchodilators and inhaled corticosteroid. The patient will be maintained on AVAPS therapy in lieu of her home astral noninvasive ventilator. TIME: 38 minutes of critical care time, independent of procedures, was spent addressing the patient's septic versus hypovolemic shock, acute kidney injury, metabolic encephalopathy, abdominal pain, diarrhea, COPD, review of all data and collaboration with the care team. HPI Consult Data Date of Consult: 09/24/21 HPI Narrative HPI Narrative: The patient is a 65-year-old female, with a history as outlined below, who presented to the emergency department on September 23 with generalized malaise, weakness, abdominal pain and diarrhea of several days duration. The patient was evaluated in the emergency department on September 19 for abdominal pain and again on September 21 for chest pain. The patient was discharged home in each of those instances. The patient is currently followed in the pulmonary medicine clinic by myself due to a history of COPD, chronic hypoxemic respiratory failure and obstructive sleep apnea. On presentation to the emergency department, the patient was noted to be afebrile but was tachypneic and hypotensive. Laboratory evaluation revealed an elevated white blood cell count to 22,000. Chemistry profile was notable for a creatinine of 4.5, which was previously less than 1 the day before. Lactate was normal at 1.4. Urinalysis was negative for nitrites, positive for leukocyte esterase and 1+ urine bacteria. Toxicology screen was positive for opiates and benzodiazepines. The plan was to admit the patient under an observation status to the hospital with IV fluid resuscitation. Over the course of the night, the patient remained hypotensive, despite being administered multiple liters of fluid. The patient was never initiated on Levophed. Rather, hetastarch was administered this morning, which again was not successful in stabilizing hemodynamics. Therefore, the patient was ultimately transferred to the medical intensive care unit where a central line had to be placed and the patient initiated on vasopressor support. The patient's last surface echocardiogram from June 2021 revealed normal LV size with an ejection fraction of 37% and moderate segmental systolic dysfunction. FOR[facility]LY [facility] Medical History Alcohol abuse Anxiety Anxiety and depression Chronic anemia Chronic systolic (congestive) heart failure CO2 narcosis COPD (chronic obstructive pulmonary disease) Daytime hypersomnia Essential (primary) hypertension Fall GERD (gastroesophageal reflux disease) Head concussion Hemorrhagic cerebrovascular accident (CVA) (02/09/17) History of DVT of lower extremity (02/11/17) History of non-ST elevation myocardial infarction (NSTEMI) (02/03/17) Hypercarbia Hyperlipidemia Insomnia Ischemic cerebrovascular accident (CVA) (02/06/17) Non-ischemic cardiomyopathy Non-rheumatic mitral regurgitation TIO (obstructive sleep apnea) Respiratory insufficiency Secondary pulmonary arterial hypertension Stroke Takotsubo cardiomyopathy (06/17/21) TIA (transient ischemic attack) (10/25/19) Weakness due to old stroke Home Medications aspirin 81 mg PO DAILY 11/03/20 [History Last Taken Unknown] cholecalciferol (vitamin D3) [Vitamin D3] 25 mcg PO DAILY 11/03/20 [History Last Taken Unknown] duloxetine 60 mg PO DAILY 11/03/20 [History Last Taken Unknown] folic acid 1 mg PO DAILY 11/03/20 [History Last Taken Unknown] pantoprazole [Protonix] 40 mg PO DAILY 11/03/20 [History Last Taken Unknown] potassium chloride 20 meq PO DAILY 11/03/20 [History Last Taken Unknown] ropinirole 0.5 mg PO QHS 11/03/20 [History Last Taken Unknown] spironolactone 12.5 mg PO DAILY 11/03/20 [History Last Taken Unknown] albuterol sulfate 90 mcg/actuation aerosol inhaler 2 puff INHALATION Q4H PRN #18 g 12/23/20 [Rx Last Taken Unknown] fluticasone fur. 100 mcg-umeclid 62.5 mcg-vilant 25 mcg inhalat.powder 1 inh INHALATION DAILY #60 ea 12/23/20 [Rx Last Taken Unknown] albuterol sulfate 1.25 mg INHALATION Q4H PRN 06/15/21 [History Last Taken Unknown] zolpidem 10 mg PO QHS 06/15/21 [History Last Taken Unknown] losartan 25 mg PO DAILY #30 tab 06/17/21 [Rx Last Taken Unknown] escitalopram oxalate 10 mg tablet 10 mg PO DAILY 07/07/21 [History Last Taken Unknown] mecobalamin (vitamin B12) 5,000 mcg disintegrating tablet 5,000 mcg PO DAILY 07/07/21 [History Last Taken Unknown] carvedilol 12.5 mg tablet 12.5 mg PO BID #60 tab 09/10/21 [Rx Last Taken Unknown] hydrocodone-acetaminophen 1 tab PO Q6H PRN PRN 3 Days #10 tablet 09/21/21 [Rx Last Taken Unknown] Allergy/AdvReac Type Severity Reaction Status Date / Time tetanus and diphtheria Allergy Hives Verified 09/22/21 23:22 toxoids [tetanus & diphtheria toxoids] Family History Sister Cancer lung Father Cancer lung Mother Cancer lung Surgical History H/O: section History of bilateral cataract extraction History of cholecystectomy History of left heart catheterization (06/17/21) History of lumpectomy Hx of appendectomy Social History household members: none Smoking Status: Former smoker how long ago did patient quit smokin, 1pk/day second hand exposure: Yes alcohol intake: former substance use type: does not use what type of physical activity do you participate in: walking frequency: daily ROS Constitutional Constitutional: Reports malaise and weakness Eyes Eyes: Denies blurry vision or change in vision ENT HEENT: Denies headache(s), hoarseness or sore throat Cardiovascular Cardiovascular: Reports chest pain Respiratory/Chest Respiratory/Chest: Reports cough and dyspnea; Denies hemoptysis Gastrointestinal Gastrointestinal: Reports abdominal pain, diarrhea, nausea and vomiting Genitourinary Genitourinary: Denies difficulty urinating Musculoskeletal Musculoskeletal: Denies arthralgias, back pain or joint pain Integumentary Integumentary: Denies lesions, rash or skin ulcer Neurologic Neurologic: Reports confusion Psychiatric Psychiatric: Reports anxiety and depression Endocrine Endocrinology: Reports fatigue Hematologic/Lymphatic Hematologic/Lymphatic: Denies easy bleeding or easy bruising Physical Exam Const alert General Appearance: ill appearing Orientation / Consciousness: confused HEENT normocephalic and head/scalp atraumatic Eyes PERRL, EOMs intact bilaterally and conjunctivae normal Neck supple General: trachea midline Resp Auscultation: diminished lung sounds; Negative for rales, rhonchi or wheezes Cardio regular rate and regular rhythm GI normal to inspection, nondistended, normoactive bowel sounds Extremity no clubbing, cyanosis or edema Skin no rashes or lesions noted Neuro moves all extremities and no focal motor deficits Psych cooperative Lab / Micro Data Result Diagrams: 09/24/21 03:10 09/24/21 03:10 Labs: Laboratory Results - last 24 hr 09/22/21 23:55: WBC 22.1 H, RBC 3.64 L, Hgb 11.3 L, Hct 33.3 L, MCV 91.5, MCH 31.0, MCHC 33.9 D, RDW Std Deviation 46.9 H, RDW Coeff of Deonte 13.9, Plt Count 233, MPV 11.0, Immature Gran % (Auto) 2.600 H, Neut % (Auto) 83.0 H, Lymph % (Auto) 6.6 L, [place] % (Auto) 6.9, Eos % (Auto) 0.2, Baso % (Auto) 0.7, Absolute Neuts (auto) 18.3 H, Absolute Lymphs (auto) 1.46, Nucleated RBC % 0, Differential Comment SCANNED, Diff Path Review November foll 09/22/21 23:55: Sodium 134 L, Potassium 4.7, Chloride 96 L, Carbon Dioxide 28.0, Anion Gap 10, BUN 67 H, Creatinine 4.50 H, Estim Creat Clear Calc 10.17, Est GFR (MDRD) Af Amer 13 L, Est GFR (MDRD) Non-Af 10 L, BUN/Creatinine Ratio 14.9, Glucose 110 H, Calcium 8.3 L, Total Bilirubin 0.70, AST 39 H, ALT 64 H, Alkaline Phosphatase 264 H, Troponin I High Sens 11, Total Protein 6.6, Albumin 2.6 L, Globulin 4.0, Albumin/Globulin Ratio 0.6 L, Lipase 34 L 09/22/21 23:55: Blood Type A POSITIVE, Antibody Screen NEGATIVE 09/22/21 23:55: Lactic Acid 1.4 09/23/21 01:54: Urine Color Lauryn, Urine Clarity Sl. Cloudy, Urine pH 5.0, Ur Specific [place] 1.025, Urine Protein 100 H, Urine Glucose (UA) 50 H, Urine Ketones 5 H, Urine Occult Blood 10 H, Urine Nitrite Negative, Urine Bilirubin 3 H, Urine Urobilinogen 4 H, Ur Leukocyte Esterase 100 H, Urine RBC 0 SEEN, Urine WBC 5-10 SEEN, Ur Squamous Epith Cells 0 SEEN, Ur Transition Epith Cell 0-5 SEEN, Calcium Oxalate Crystal 1+, Amorphous Sediment 2+, Urine Bacteria 1+, Urine Mucus 0 SEEN 03/22/22 01:54: Urine Opiates Screen POSITIVE H, Urine Methadone Screen NEGATIVE, Ur Barbiturates Screen NEGATIVE, Ur Phencyclidine Scrn NEGATIVE, Ur Amphetamines Screen NEGATIVE, MDMA (Ecstasy) Screen NEGATIVE, U Benzodiazepines Scrn POSITIVE H, Urine Cocaine Screen NEGATIVE, U Cannabinoids Screen NEGATIVE, Ur Drug Screen Comment 09/23/21 02:58: Ethyl Alcohol 7.0 09/23/21 06:15: WBC 16.9 H, RBC 3.29 L, Hgb 10.2 L, Hct 32.1 L, MCV 97.6 D, MCH 31.0, MCHC 31.8 L D, RDW Std Deviation 49.9 H, RDW Coeff of Deonte 14.1, Plt Count 174, MPV 10.6, Immature Gran % (Auto) 1.800 H, Neut % (Auto) 84.6 H, Lymph % (Auto) 4.9 L, [place] % (Auto) 8.2, Eos % (Auto) 0.1, Baso % (Auto) 0.4, Absolute Neuts (auto) 14.3 H, Absolute Lymphs (auto) 0.83, Nucleated RBC % 0 09/23/21 06:15: Sodium 134 L, Potassium 4.9, Chloride 106, Carbon Dioxide 21.0, Anion Gap 7, BUN 64 H, Creatinine 3.99 H, Estim Creat Clear Calc 11.98, Est GFR (MDRD) Af Amer 14 L, Est GFR (MDRD) Non-Af 12 L, BUN/Creatinine Ratio 16.0, Glucose 104, Calcium 6.9 L, Total Bilirubin 0.50, Direct Bilirubin 0.16, AST 22, ALT 43, Alkaline Phosphatase 191 H, Total Protein 5.2 L, Albumin 2.0 L, Globulin 3.2 Radiology Impression Chest X-Ray 09/23/21 00:01 IMPRESSION: 1. Borderline cardiomegaly without heart failure. 2. No other evidence of active cardiopulmonary disease. 3. Mild demineralization. 4. No interval change since the previous study of 09/21/2021. Electronically Signed: Darwin Huynh MD at 0:57 EDT , Abdomen/Pelvis CT 09/23/21 23:43 IMPRESSION: 1. Moderate constipation. 2. Appendix is not visualized; no abscesses are fluid collections in the appendix region. 3. No diverticulitis, colitis, or intestinal obstruction. 4. Contracted gallbladder without gallstones. 5. No pancreatitis. 6. Normal kidneys without obstructive uropathy. 7. No hernias, abscesses, or solid mass lesions. 8. Small anteverted uterus and no ovarian cystic or solid masses. Electronically Signed: Darwin Huynh MD at 1:14 EDT , Charges/Coding Procedures Hospitalists Procedures: [id number] Critial Care 1st Hr
--- NOTE | 2021-09-23 10:20 | RAD_ITS ---
STUDY: X-RAY CHEST REASON FOR EXAM: Female, 65 years old. Central line placement TECHNIQUE: Single AP portable view of the chest. COMPARISON: Comparison is made with prior study done earlier today. FINDINGS: A right-sided central catheter has been placed. The tip is in the proximal portion of the superior vena cava. EKG electrodes are seen. Hyperinflation. The lungs are clear. There is no demonstrated pleural abnormality. Normal size heart. Normal mediastinum and jacinto. Normal visualized pulmonary arteries. Normal visualized aortic arch and descending thoracic aorta. There are diffuse degenerative changes of the visualized thoracic spine. There is degenerative osteoarthritis of the bilateral shoulders. There is no demonstrated abnormality of the visualized soft tissue structures of the upper abdomen. RAD/CXR for Line Placement IMPRESSION: The tip of the right central catheter is in the proximal portion of the superior vena cava. Electronically Signed: Vinny Mcghee MD at 14:41 EDT ,
--- NOTE | 2021-09-23 10:22 | PCM.OP.PRO ---
Procedure Report Date of Procedure: 09/23/21 Central Venous Catheter Indication: Fluid refractory hypotension Consent was obtained from: A time-out was completed verifying correct patient, procedure, site, positioning, and special equipment if applicable. The patient was placed in a dependent position appropriate for central line placement based on the vein to be cannulated. The patient's right neck was prepped and draped in a sterile fashion. 1% lidocaine was used to anesthetize the surrounding skin area. A triple-lumen catheter was introduced into the right IJ using the Seldinger technique and under ultrasound guidance. The catheter was threaded smoothly over the guidewire and appropriate blood return was obtained. Each lumen of the catheter was evacuated of air and flushed with sterile saline. The catheter was then sutured in place to the skin and a sterile dressing applied. Chest x-ray to confirm appropriate positioning is pending. ULTRASOUND GUIDANCE STATEMENT (Vascular Access): I performed ultrasound image acquisition and interpretation for needle placement during the procedure. The vessel was identified and found to be free of thrombosis by compression technique. A safe point of entry was marked at the skin in an angle for axis was determined. The needle was guided by obtaining free-flowing fluid and by real-time visualization. Procedures Hospitalists Procedures: [id number] Insert Non-tunnel CV Cath
--- NOTE | 2021-09-23 10:43 | ECHOCS_ITS ---
Reason For Study: CHEST PAIN Procedure This was a 2D Doppler, Color Flow transthoracic echocardiogram. The study was technically difficult. Contrast injection was performed. Due to Takotsubo CMP in 06/17/21. Exam performed portable in ICU/CCU. Left Ventricle Normal LV size. Segmental dysfunction with preserved ejection fraction (see wall motion). The estimated ejection fraction is 65 %. No evidence for diastolic dysfunction. Anterior [place] : Akinetic. Inferior [place] : Akinetic. Right Ventricle Normal RV size. Normal systolic function. Atria Normal left atrium. Normal right atrium. No doppler evidence for ASD. Mitral Valve There is no mitral annular calcification. Normal mitral valve. Moderate (2+) eccentric mitral valve insufficiency. Tricuspid Valve Normal tricuspid valve. Mild tricuspid valve insufficiency. Right ventricular systolic pressure estimated to be 43 mmHg. Aortic Valve The aortic valve is not well visualized. Pulmonic Valve The pulmonic valve is not well visualized. Great Vessels Normal sized aortic root. Pericardium/Pleural No pericardial effusion. Medication Diluted definity 3.0ml given slow IV push to enhance endocardial definition. MMode/2D Measurements & Calculations LVIDd: 5.8 cm IVSd: 1.1 cm Ao root diam: 3.3 cm LVIDs: 4.3 cm LVPWd: 0.98 cm RVDd: 3.1 cm FS: 24.9 % LAV(MOD-bp): 48.3 ml LA A4 area: 16.4 cm2 LA dimension(2D): 3.4 cm LAV(MOD-bp) Indexed: 27.5 ml/m2 LAV(MOD-sp2): 52.1 ml LAV(MOD-sp4): 44.6 ml RA A4 area: 10.9 cm2 Time Measurements MV dec time: 0.17 sec Doppler Measurements & Calculations MV E max james: 89.0 cm/sec Lat Peak E' James: 13.4 cm/sec Med Peak E' James: 6.9 cm/sec MV A max james: 93.5 cm/sec E/E' lat: 6.6 E/E' med: 12.9 MV E/A: 0.95 Ao V2 max: 134.5 cm/sec LV V1 max: 94.7 cm/sec TR max james: 316.0 cm/sec Ao max P.2 mmHg LV V1 max P.6 mmHg TR max P.0 mmHg ECHO/Echo Complete W/ Contrast Interpretation Summary The study was technically difficult. Contrast injection was performed. Segmental dysfunction with preserved ejection fraction (see wall motion). The estimated ejection fraction is 65 %. Moderate (2+) eccentric mitral valve insufficiency. Mild tricuspid valve insufficiency. Right ventricular systolic pressure estimated to be 43 mmHg. No evidence for diastolic dysfunction. Ordering Physician: Anurag Flannery Referring Physician: Maryam Pineda Performed By: Yesika Guidry, JENNIE, RVT
--- NOTE | 2021-09-23 10:45 | CASEMGMT ---
FINESSE LALA Face to Face with patient for initial transition planning/care coordination assessment. RN CM introduced self and role at [facility]. Patient lying in bed, confused, significant other Oscar at bedside. Oscar willing to participate in assessment and is able to answer all questions appropriately. Care providers, pharmacy, and demographics verified. Oscar wishes for patient to discharge home but is willing for patient to go to SNF if necessary. Oscar states he has no further needs or concerns at this time. CM to follow for discharge planning needs that may arise. PCP: Miriam Specialists: none Preferred Pharmacy: [facility] Insurance: [facility] Prescription Benefit: yes Living Will/HPOA: none LNOK: daughter, significant other Living Arrangements: patient lives with significant other in a 2 story home with bed and bath on first floor. Per Oscar, patient was independent at home prior to current illness. Transportation: significant other DME/HHC: Patient has shower chair, cpap, nebulizer, pulse ox, walker, and home oxygen at 2 lpm through [employer] with portability. Patient has had [facility] HHC in the past. Disposition Plan: TBD by course of treatment and progress with therapy. Carla BROWN, RN, CM
[2021-09-23] MEDS: Piperacil/Tazobactam 3.375 GM/50 ML ML IV ×2 (11:10→21:14)
--- NOTE | 2021-09-23 11:12 | PN.HOSP_ITS ---
Subjective Subjective Patient seen and examined. I was contacted by her nurse emergently this morning on account of patient being hypotensive with weak pulse and cold and clammy extremities. She had been admitted in the early hours of this morning for generalized illness as well as nausea and diarrhea. CT of the abdomen done on admission showed moderate constipation and a contracted gallbladder without gallstones. She says she had been having profuse amounts of diarrhea and this morning patient told me that she thought she vomited blood several days before coming into the hospital. At the time of her being admitted in the ED, her blood pressure was 64/38, respiratory rate was 24 and pulse rate was 101. Her blood pressure improved only minimally to 88/25 later. Patient was initially admitted to the MedSurg unit under standard care. She was also found to have markedly elevated creatinine on admission and so was managed for GUME and dehydration and hydrated with IV fluids. Patient remained persistently hypotensive throughout the night and was given fluid boluses. Blood pressure did not improve and she was given a colloid hetastarch. Blood pressure still did not improve and she remained hypotensive throughout the night. Patient emergently transferred to the ICU this morning on account of her persistent hypotension. I saw patient and reviewed her this morning before transferred to ICU. She was alert but lethargic and says she felt very weak and tired. She did seem to have some episodes of confusion and had told the charge nurse that she thought she had Ebola. She denied any palpitations but admitted to some mild generalized abdominal pain. Objective Data Objective Data Vital Signs: Vital Signs Temp Pulse Resp BP Pulse Ox 96.7 F L 98 24 H 85/38 L 100 09/23/21 08:00 09/23/21 08:00 09/23/21 08:00 09/23/21 11:11 09/23/21 10:00 Oxygen Flow Rate (L/min) 3 Oxygen Delivery Method Nasal Cannula Weight: 156 lb 11.979 oz Body Mass Index (BMI) 26.4 Intake & Output: Intake and Output for Last 24 Hours 09/21/21 09/22/21 09/23/21 23:59 23:59 23:59 Intake Total 4450.97 / 4450.97 Balance 4450.97 / 4450.97 Lab / Micro Data Result Diagrams: 09/23/21 06:15 09/23/21 06:15 Labs: Laboratory Results - last 24 hr 09/22/21 23:55: WBC 22.1 H, RBC 3.64 L, Hgb 11.3 L, Hct 33.3 L, MCV 91.5, MCH 31.0, MCHC 33.9 D, RDW Std Deviation 46.9 H, RDW Coeff of Deonte 13.9, Plt Count 233, MPV 11.0, Immature Gran % (Auto) 2.600 H, Neut % (Auto) 83.0 H, Lymph % (Auto) 6.6 L, [place] % (Auto) 6.9, Eos % (Auto) 0.2, Baso % (Auto) 0.7, Absolute Neuts (auto) 18.3 H, Absolute Lymphs (auto) 1.46, Nucleated RBC % 0, Differential Comment SCANNED, Diff Path Review November09/22/21 23:55: Sodium 134 L, Potassium 4.7, Chloride 96 L, Carbon Dioxide 28.0, Anion Gap 10, BUN 67 H, Creatinine 4.50 H, Estim Creat Clear Calc 10.17, Est GFR (MDRD) Af Amer 13 L, Est GFR (MDRD) Non-Af 10 L, BUN/Creatinine Ratio 14.9, Glucose 110 H, Calcium 8.3 L, Total Bilirubin 0.70, AST 39 H, ALT 64 H, Alkaline Phosphatase 264 H, Troponin I High Sens 11, Total Protein 6.6, Albumin 2.6 L, Globulin 4.0, Albumin/Globulin Ratio 0.6 L, Lipase 34 L 09/22/21 23:55: Blood Type A POSITIVE, Antibody Screen NEGATIVE 09/22/21 23:55: Lactic Acid 1.4 09/23/21 01:54: Urine Color Lauryn, Urine Clarity Sl. Cloudy, Urine pH 5.0, Ur Specific [place] 1.025, Urine Protein 100 H, Urine Glucose (UA) 50 H, Urine Ketones 5 H, Urine Occult Blood 10 H, Urine Nitrite Negative, Urine Bilirubin 3 H, Urine Urobilinogen 4 H, Ur Leukocyte Esterase 100 H, Urine RBC 0 SEEN, Urine WBC 5-10 SEEN, Ur Squamous Epith Cells 0 SEEN, Ur Transition Epith Cell 0-5 SE EN, Calcium Oxalate Crystal 1+, Amorphous Sediment 2+, Urine Bacteria 1+, Urine Mucus 0 SEEN 09/23/21 01:54: Urine Opiates Screen POSITIVE H, Urine Methadone Screen NEGATIVE, Ur Barbiturates Screen NEGATIVE, Ur Phencyclidine Scrn NEGATIVE, Ur Amphetamines Screen NEGATIVE, MDMA (Ecstasy) Screen NEGATIVE, U Benzodiazepines Scrn POSITIVE H, Urine Cocaine Screen NEGATIVE, U Cannabinoids Screen NEGATIVE, Ur Drug Screen Comment 09/23/21 02:58: Ethyl Alcohol 7.0 09/23/21 06:15: WBC 16.9 H, RBC 3.29 L, Hgb 10.2 L, Hct 32.1 L, MCV 97.6 D, MCH 31.0, MCHC 31.8 L D, RDW Std Deviation 49.9 H, RDW Coeff of Deonte 14.1, Plt Count 174, MPV 10.6, Immature Gran % (Auto) 1.800 H, Neut % (Auto) 84.6 H, Lymph % (Auto) 4.9 L, [place] % (Auto) 8.2, Eos % (Auto) 0.1, Baso % (Auto) 0.4, Absolute Neuts (auto) 14.3 H, Absolute Lymphs (auto) 0.83, Nucleated RBC % 0 09/23/21 06:15: Sodium 134 L, Potassium 4.9, Chloride 106, Carbon Dioxide 21.0, Anion Gap 7, BUN 64 H, Creatinine 3.99 H, Estim Creat Clear Calc 11.98, Est GFR (MDRD) Af Amer 14 L, Est GFR (MDRD) Non-Af 12 L, BUN/Creatinine Ratio 16.0, Glucose 104, Calcium 6.9 L, Total Bilirubin 0.50, Direct Bilirubin 0.16, AST 22, ALT 43, Alkaline Phosphatase 191 H, Total Protein 5.2 L, Albumin 2.0 L, Globulin 3.2 Radiography Diagnostic Testing: Radiology Impression Chest X-Ray 09/23/21 00:01 IMPRESSION: 1. Borderline cardiomegaly without heart failure. 2. No other evidence of active cardiopulmonary disease. 3. Mild demineralization. 4. No interval change since the previous study of 09/21/2021. Electronically Signed: Darwin Huynh MD at 0:57 EDT , Abdomen/Pelvis CT 09/23/21 23:43 IMPRESSION: 1. Moderate constipation. 2. Appendix is not visualized; no abscesses are fluid collections in the appendix region. 3. No diverticulitis, colitis, or intestinal obstruction. 4. Contracted gallbladder without gallstones. 5. No pancreatitis. 6. Normal kidneys without obstructive uropathy. 7. No hernias, abscesses, or solid mass lesions. 8. Small anteverted uterus and no ovarian cystic or solid masses. Electronically Signed: Darwin Huynh MD at 1:14 EDT , Physical Exam Const alert Constitutional Narrative: Has episodes of confusion. Orientation / Consciousness: lethargic Nutritional Appearance: overweight HEENT head/scalp atraumatic Head and Scalp: normocephalic Mouth: dry mucous membranes Eyes PERRL, EOMs intact bilaterally and conjunctivae normal Neck no lymphadenopathy Resp Resp Narrative: Tachypneic, mildly diminished breath sounds bibasilarly. No wheezes or crackles. Cardio regular rhythm, S1 normal heart sound, S2 normal heart sound and no murmurs Cardio Narrative: Tachycardic. GI GI Narrative: Obese abdomen, mild generalized tenderness. No guarding or rebound tenderness. Extremity normal to inspection, full ROM and no clubbing, cyanosis or edema Peripheral Pulses: Yes radial pulses present bilateral (radial pulses very weak and thready. ) Skin Skin Narrative: patient's extremities are cold and clammy. Neuro CN's II-XII intact bilaterally and moves all extremities Neuro Narrative: patient lethargic Sensorium / Orientation: awake Psych Psych Narrative: flat and lethargic affect Assessment & Plan Assessment/Plan (1) Acute kidney injury: (2) Shock: PLAN: #Shock, most likely septic shock vs hypovolemic shock * patient was admitted with diarrhea and hypotension; remained persistently hypotensive throughout the night * was given hetastarch * transfer patient emergently to ICU, as she will need vasopressor support in light of her shock * she was tachypneic and tachycardic and had an elevated wbc on admission. She had complained of diarrhea but has not had any more diarrhea since admission so I am thinking that patient's condition is more due to septic shock. * Blood cultures and urine cultures ordered. * CT of the abdomen and pelvis done on admission showed constipation with no abscesses or fluid collection in the appendix region and no diverticulitis, colitis or intestinal obstruction. No pancreatitis and contracted gallbladder without gallstones * blood and urine cultures obtained * I think it will be prudent to start patient on broad spectrum antimicrobials until the blood and urine cultures result. Will defer to critical care * will need central line and to initiate levophed to maintain MAP >65 * she has a known EF of 37% from 2D echo done in 2020. * Urinalysis did show 1+ bacteria * C diff and enteric panel is pending * #GUME * Creatinine was 4.5 on admission and has trended down to 3.99. * Is likely prerenal due to decreased intake and the diarrhea she was having before she came into the hospital. * Renal ultrasound ordered. Check urine electrolytes as well to assess Belen inferior * Consult nephrology if kidney function does not continue improving. * #Hypertension; BP meds on hold due to septic shock. #Acute metabolic encephalopathy * this is likely due to shock. * should improve as shock also improves * #Depression: on escitalopram DVT prophylaxis: lovenox Charges/Coding Visit Charges Inpatient E&M: 96604 Subs Hosp L3
[2021-09-23 11:24] LABS: Lactic Acid 0.7 mmol/L (0.4-1.9)
[2021-09-23 12:20] LABS: Allen Test Positive; Base Excess -9 mmol/L (-2 to +2); Bicarbonate 20.5 mmol/L (22-26); Blood Gas Specimen Type ART; FI02 21; PO2 56 mmHG (75-100); SITE R Radial; SO2 77 % (95-99); Total Carbon Dioxide 23 mmol/L; pCO2 64.2 mmHg (35-45); pH 7.11 (7.35-7.45)
[2021-09-23 13:08] LABS: Pathologist Review Reviewed
[2021-09-23] MEDS: Haloperidol Lactate 5 MG/ML Vial 2.5 MG IV (13:43)
--- NOTE | 2021-09-23 14:46 | PCM.RX.CS ---
Consult Pharmacy has been consulted to manage selected antiobiotic: Vancomycin Type of Consult: New start Labs: Sodium 134 mmol/L (136-145) L 09/23/21 06:15 Potassium 4.9 mmol/L (3.5-5.1) 09/23/21 06:15 Chloride 106 mmol/L (98-107) 09/23/21 06:15 Carbon Dioxide 21.0 mmol/L (21.0-32.0) 09/23/21 06:15 Anion Gap 7 (5-15) 09/23/21 06:15 BUN 64 mg/dL (7-18) H 09/23/21 06:15 Creatinine 3.99 mg/dL (0.55-1.02) H 09/23/21 06:15 Est GFR (MDRD) Af Amer 14 mL/min (>60) L 09/23/21 06:15 Est GFR (MDRD) Non-Af 12 mL/min (>60) L 09/23/21 06:15 BUN/Creatinine Ratio 16.0 RATIO (10-20) 09/23/21 06:15 Glucose 104 mg/dL (74-106) 09/23/21 06:15 Microbiology: Microbiology 09/23/21 10:30 Nasal Secretion SARS-CoV-2 Antigen (Rapid) - Final Weight used for dosin.1 kg Estimated Creatinine Clearance: 12ML/MIN Goal Trough: 15-20 mcg/mL Pharmacy Plan for Drug Dosing: Give initial loading dose (25mg/kg)of 1750mg IV x1 today. Since the patient's CrCl < 20, will order a random vanc level per protocol to be drawn on 09/25/21 and further dosing will be determined from there. Pharmacy Service will continue to monitor and adjust dosing as required. Follow-Up Labs: Trough Vancomycin - random level Labs to be done on [date and time ordered]: 09/25/21 0600
--- NOTE | 2021-09-23 21:36 | NURSING ---
After reviewing previous charting and orders placed for urinary catheter placement was noted to be incorrect. Order placement was charted as straight cath when soliman was actually placed. New orders and assessment put in to show soliman placement by previous RN.
--- NOTE | 2021-09-23 23:43 | CT_ITS ---
STUDY: CT ABDOMEN AND PELVIS WITH CONTRAST ENHANCEMENT OF 0019 HOURS ON 09/23/2021 REASON FOR EXAM: 65-year-old female with abdominal pain. RADIATION DOSAGE (If Supplied By Facility): CTDIvol = ( 12.58 ) mGy, DLP = ( 743.17 ) mGycm TECHNIQUE: Transaxial images were obtained from the dome of the diaphragm to the symphysis pubis without oral contrast. IV 100mL Isovue-370 was administered. Sagittal and coronal images were reconstructed. Individualized dose optimization techniques were used for this CT. COMPARISON: None. FINDINGS: The visualized lung bases are unremarkable. The visualized portions of the heart are within normal limits. Normal liver. Contracted gallbladder without gallstones. Normal spleen. Normal pancreas. No pancreatitis or pancreatic mass lesions. Normal bilateral adrenal glands. Normal kidneys without obstructive uropathy. Normal visualized stomach. Normal small intestine. Mild to moderate constipation. No diverticulitis, colitis, and post reduction. Appendix was not visualized; no abscesses or fluid collections in the appendix region. Normal calcified abdominal aorta without aneurysm or dissection. Normal inferior vena cava. Normal retroperitoneum. Normal urinary bladder. Small anteverted uterus. No ovarian cystic or solid masses. Normal abdominal wall. Normal osseous structures. Normal lumbosacral spine without fractures, subluxations or intervertebral disc space narrowing. No hernias, abscesses, or solid mass lesions. CT/Abdomen/Pelvis W IV Cont ONLY IMPRESSION: 1. Moderate constipation. 2. Appendix is not visualized; no abscesses are fluid collections in the appendix region. 3. No diverticulitis, colitis, or intestinal obstruction. 4. Contracted gallbladder without gallstones. 5. No pancreatitis. 6. Normal kidneys without obstructive uropathy. 7. No hernias, abscesses, or solid mass lesions. 8. Small anteverted uterus and no ovarian cystic or solid masses. Electronically Signed: Darwin Huynh MD at 1:14 EDT ,
[2021-09-24] VITALS (73 sets, daily range): BP systolic 88–141; BP diastolic 33–100; PULSE 55–103; RESP 12–31; TEMP 37.1–37.8; O2SAT 89–100
[2021-09-24 03:17] LABS: Hematocrit 30.3 % (37-47); Hemoglobin 9.8 g/dL (12.0-15.0); Mean Corp Hgb Conc 32.3 g/dL (32-36); Mean Corpuscular Hgb 31.3 pg (27.0-32.0); Mean Corpuscular Volume 96.8 fL (81-99); Mean Platelet Vol. 10.3 fl (6.2-12.0); POSITIVE DIFFERENTIAL YES; POSITIVE MORPHOLOGY YES; Platelet Count 189 K/mm3 (150-450); RBC Distribution Width CV 14.4 % (11.6-14.6); RBC Distribution Width SD 50.8 fl (35.1-43.9); Red Blood Count 3.13 M/mm3 (4.2-5.4); White Blood Count 21.7 K/mm3 (4.4-11.0)
[2021-09-24 03:38] LABS: Scan Smear per Review Criteria MANUAL DIFF
[2021-09-24 03:39] LABS: Differential Indicated MANUAL DIFF
[2021-09-24 03:41] LABS: Absolute Lymphocyte Count 0.65 X10^3/uL (0.83-4.51); Absolute Neutrophil Count 17.8 X10^3/uL (2.0-7.7); Neutrophil-Band 13 % (0-5); Neutrophil-Segmented 69 % (47-70); Total Cells Counted 100 (MANUAL DIFF)
[2021-09-24 03:42] LABS: Lymphocyte 3 % (19-41); Monocyte 11 % (0-10); Myelocyte 4 % (0-0); Platelet Estimate ADEQUATE (ADEQ); Red Cell Morphology NORM C+C NORMAL (NORM C&C)
[2021-09-24 04:01] LABS: ALB/GLOB Ratio 0.6 RATIO (0.9-2.4); AST(SGOT) 30 U/L (15-37); Alanine Aminotransfer ALT/SGPT 37 U/L (13-56); Albumin, Serum 1.9 g/dL (3.2-5.0); Alkaline Phosphatase 176 U/L (45-117); Anion Gap 7 (5-15); BUN 57 mg/dL (7-18); BUN/Creat Ratio 22.4 RATIO (10-20); Calcium,Total 7.3 mg/dL (8.5-10.1); Chloride 114 mmol/L (98-107); Creatinine, Serum 2.54 mg/dL (0.55-1.02); EST Glomerular Filtration Rate 20 mL/min (>60); Est Glom Filt Rate - Afr Amer 24 mL/min (>60); Estimated Creatinine Clearance 18.81 ml/min; Globulin 3.4 g/dL (2.2-4.2); Glucose 148 mg/dL (74-106); Protein, Total 5.3 g/dL (6.4-8.2); Sodium Level 141 mmol/L (136-145)
--- NOTE | 2021-09-24 05:49 | PN.CC_ITS ---
Assessment & Plan Assessment/Plan (1) Acute kidney injury: PLAN: RECOMMENDATIONS: 1. Continue vasopressor support in an attempt to maintain a mean arterial pressure at or above 65 mmHg. 2. Given high-dose vasopressor requirement, will start stress dose steroids. 3. Continue empiric broad-spectrum antimicrobials. 4. Obtain follow-up KUB. 5. Continue bronchodilators and inhaled corticosteroid. IMPRESSIONS: 1. Septic versus hypovolemic shock The patient presented to the hospital with a constellation of symptoms including abdominal pain and diarrhea. She has developed persistent tachypnea and has an elevated white blood cell count with bandemia concerning for sepsis due to possible infectious colitis or cystitis with acute sepsis related organ dysfunction as manifested by fluid refractory hypotension, acute kidney injury and altered mentation. The patient did ultimately have to be placed on vasopressor support due to her fluid refractory hypotension. She was also started on empiric broad-spectrum antimicrobials. Although C. difficile or some other infectious enteric pathogen was suspected, the patient has not had any further diarrhea. Echocardiogram was largely unrevealing with improvement in her ejection fraction when compared to previous. 2. Acute kidney injury Improving. Most likely prerenal in etiology and related to intravascular volume depletion in the setting of GI losses. There has been some interval improvement in her creatinine. Recommend continuing vasopressor support in an attempt to maintain hemodynamic stability. Continue to monitor urine output for now. No current indication for renal replacement therapy. 3. Metabolic encephalopathy I do follow the patient in the pulmonary medicine clinic and she is clearly altered as compared to her baseline. I do suspect this is secondary to underlying metabolic derangements in the setting of #1. Continue supportive measures as noted above. Avoid sedating medications. 4. Abdominal pain/diarrhea Possibly due to self-limited viral gastroenteritis. No further diarrhea has been noted following transfer to ICU. Will obtain follow-up KUB this morning given ongoing abdominal pain complaints. If clinically indicated, a repeat CT abdomen/pelvis could also be considered. 5. History of COPD/chronic hypoxemic respiratory failure/obstructive sleep apnea The patient has a known history of obstructive lung disease, for which I would recommend that she be maintained on scheduled bronchodilators and inhaled corticosteroid. The patient will be maintained on AVAPS therapy in lieu of her home astral noninvasive ventilator. TIME: 33 minutes of critical care time, independent of procedures, was spent add ressing the patient's septic versus hypovolemic shock, acute kidney injury, metabolic encephalopathy, abdominal pain, diarrhea, COPD, review of all data and collaboration with the care team. Subjective Subjective The patient was seen and examined at the bedside this morning. Events from the last 24 hours have been reviewed. The patient did have some low-grade fevers overnight with a T-max of 100.7 ?F. The patient remains on a combination of Levophed and vasopressin to maintain hemodynamic stability. She is currently documented to be overall net +4.4 L for the hospitalization. White count is elevated at 21,000 with 13% bands. Creatinine has improved to 2.54. The patient has not had any further episodes of diarrhea. She has been intermittently confused overnight. She was tolerant to a certain degree of IRVIN PS support overnight. Objective Data Objective Data The patient's most recent lab work, culture data and imaging studies have all been personally reviewed. Surface echocardiogram demonstrated normal LV size with segmental systolic dysfunction and an ejection fraction of 65%. Right ventricular systolic pressure was estimated to be 43 mmHg. Covid rapid antigen testing was negative. Blood and urine cultures are pending. Vital Signs: Vital Signs Temp Pulse Resp BP Pulse Ox 99.6 F H 94 25 H 117/100 H 100 09/24/21 05:00 09/24/21 05:00 09/24/21 04:00 09/24/21 05:00 09/24/21 04:00 Oxygen Flow Rate (L/min) 2 Oxygen Delivery Method Nasal Cannula Weight: 70.7 kg Body Mass Index (BMI) 26.4 Intake & Output: Intake and Output for Last 24 Hours 09/22/21 09/23/21 09/24/21 23:59 23:59 23:59 Intake Total 5691.21 / 5747.51 414.99 / 414.99 Output Total 1150 / 1150 500 / 500 Balance 4541.21 / 4597.51 -85.01 / -85.01 Lab / Micro Data Attestation: I reviewed the patient's lab results. Result Diagrams: 09/24/21 03:10 09/24/21 03:10 Labs: Laboratory Results - last 24 hr 09/22/21 23:55: Diff Path Review Reviewed 09/23/21 06:15: WBC 16.9 H, RBC 3.29 L, Hgb 10.2 L, Hct 32.1 L, MCV 97.6 D, MCH 31.0, MCHC 31.8 L D, RDW Std Deviation 49.9 H, RDW Coeff of Deonte 14.1, Plt Count 174, MPV 10.6, Immature Gran % (Auto) 1.800 H, Neut % (Auto) 84.6 H, Lymph % (Auto) 4.9 L, [place] % (Auto) 8.2, Eos % (Auto) 0.1, Baso % (Auto) 0.4, Absolute Neuts (auto) 14.3 H, Absolute Lymphs (auto) 0.83, Nucleated RBC % 0 09/23/21 06:15: Sodium 134 L, Potassium 4.9, Chloride 106, Carbon Dioxide 21.0, Anion Gap 7, BUN 64 H, Creatinine 3.99 H, Estim Creat Clear Calc 11.98, Est GFR (MDRD) Af Amer 14 L, Est GFR (MDRD) Non-Af 12 L, BUN/Creatinine Ratio 16.0, Glucose 104, Calcium 6.9 L, Total Bilirubin 0.50, Direct Bilirubin 0.16, AST 22, ALT 43, Alkaline Phosphatase 191 H, Total Protein 5.2 L, Albumin 2.0 L, Globulin 3.2 09/23/21 10:40: Lactic Acid 0.7 09/24/21 03:10: WBC 21.7 H, RBC 3.13 L, Hgb 9.8 L, Hct 30.3 L, MCV 96.8, MCH 31.3, MCHC 32.3, RDW Std Deviation 50.8 H, RDW Coeff of [place]onte 14.4, Plt Count 189, MPV 10.3, Immature Gran % (Auto) SENIOR RESIDENT CARE DIRECTOR, Neut % (Auto) SENIOR RESIDENT CARE DIRECTOR, Lymph % (Auto) SENIOR RESIDENT CARE DIRECTOR, [place] % (Auto) SENIOR RESIDENT CARE DIRECTOR, Eos % (Auto) SENIOR RESIDENT CARE DIRECTOR, Baso % (Auto) SENIOR RESIDENT CARE DIRECTOR, Absolute Neuts (auto) 17.8 H, Absolute Lymphs (auto) 0.65 L, Total Counted 100, Neutrophils % (Manual) 69, Band Neutrophils % 13 H, Lymphocytes % (Manual) 3 L, Monocytes % (Manual) 11 H, Myelocytes % 4 H, Nucleated RBC % SENIOR RESIDENT CARE DIRECTOR, Diff Path Review November, Platelet Estimate ADEQUATE, RBC Morphology NORM C+C 09/24/21 03:10: Sodium 141, Potassium 5.0, Chloride 114 H, Carbon Dioxide 20.0 L , Anion Gap 7, BUN 57 H, Creatinine 2.54 H, Estim Creat Clear Calc 18.81, Est GFR (MDRD) Af Amer 24 L, Est GFR (MDRD) Non-Af 20 L, BUN/Creatinine Ratio 22.4 H , Glucose 148 H, Calcium 7.3 L, Total Bilirubin 0.50, AST 30, ALT 37, Alkaline Phosphatase 176 H, Total Protein 5.3 L, Albumin 1.9 L, Globulin 3.4, Albumi n/Globulin Ratio 0.6 L Micro: Microbiology 09/23/21 10:30 Nasal Secretion SARS-CoV-2 Antigen (Rapid) - Final ABG Data ABG results: ABG 09/23/21 12:14 Specimen Type ART Sample Site R Radial pH 7.11 L* Bicarbonate Actual 20.5 L Total CO2 23 Base Excess -9 L O2 Saturation 77 L O2 % 21 ABG pCO2 64.2 H ABG pO2 56 L Royal Test Positive Crit Call To/Read Back Yes Blood Gas Notified Whom BROWN Radiography Diagnostic Testing: Radiology Impression Renal Ultrasound 09/23/21 08:27 IMPRESSION: Normal ultrasound of the kidneys. Electronically Signed: Vinny Mcghee MD at 14:42 EDT , Chest X-Ray 09/23/21 10:20 IMPRESSION: The tip of the right central catheter is in the proximal portion of the superior vena cava. Electronically Signed: Vinny Mcghee MD at 14:41 EDT , Echocardiogram 09/23/21 10:43 Interpretation Summary The study was technically difficult. Contrast injection was performed. Segmental dysfunction with preserved ejection fraction (see wall motion). The estimated ejection fraction is 65 %. Moderate (2+) eccentric mitral valve insufficiency. Mild tricuspid valve insufficiency. Right ventricular systolic pressure estimated to be 43 mmHg. No evidence for diastolic dysfunction. Ordering Physician: Anurag Flannery Referring Physician: Maryam Pineda Performed By: Yesika Guidry, JENNIE, RVT Physical Exam Const alert General Appearance: ill appearing Orientation / Consciousness: awake, confused and disoriented HEENT normocephalic and head/scalp atraumatic Eyes PERRL, EOMs intact bilaterally and conjunctivae normal Neck supple General: trachea midline and CVC in place Chest inspection of chest normal Resp Effort and Inspection: tachypneic Auscultation: diminished lung sounds; Negative for rales, rhonchi or wheezes Cardio regular rate and regular rhythm GI Auscultation: hypoactive bowel sounds Palpation: tender; Negative for rigid Extremity no clubbing, cyanosis or edema Skin no rashes or lesions noted Neuro moves all extremities and no focal motor deficits Psych Psych Narrative: Intermittently confused and restless. Charges/Coding Procedures Hospitalists Procedures: [id number] Critial Care 1st Hr
--- NOTE | 2021-09-24 06:33 | RAD_ITS ---
STUDY: X-RAY - ABDOMEN/PELVIS REASON FOR EXAM: Female, 65 years old. Abdominal Pain TECHNIQUE: Single AP view of the abdomen / pelvis. COMPARISON: None. FINDINGS: Normal visualized lung bases. There is an unremarkable bowel gas pattern. The visualized liver, spleen and kidneys are grossly normal in size and morphology. [place] catheter. Normal visualized osseous structures. RAD/Abdomen Single View (Portable) IMPRESSION: Normal x-ray examination of the abdomen and pelvis. Electronically Signed: Oscar Craven MD at 8:34 EDT ,
[2021-09-24 06:55] LABS: Lipase 18 U/L (73-393)
[2021-09-24] MEDS: Budesonide Respules 0.5 MG/2 ML AMPUL.NEB. INHALATION ×2 (07:03→18:41)
[2021-09-24] MEDS: Ipratropium/Albuterol Sulfate 3 ML AMPUL.NEB INHALATION ×3 (07:03→18:41)
--- NOTE | 2021-09-24 07:53 | RAD_ITS ---
STUDY: X-RAY CHEST REASON FOR EXAM: Female, 65 years old. SOB TECHNIQUE: Single AP portable view of the chest. COMPARISON: 09/23/2021 FINDINGS: Right internal jugular deep venous lung which is unchanged. The lungs are clear and expanded. There is no demonstrated pleural abnormality. Normal size heart. Normal mediastinum and jacinto. Normal visualized pulmonary arteries. Normal visualized aortic arch and descending thoracic aorta. Normal visualized thoracic spine. Normal visualized ribs, clavicles, and shoulders. There is no demonstrated abnormality of the visualized soft tissue structures of the upper abdomen. RAD/Chest 1 View (Portable) IMPRESSION: No change from 09/23/2021. Electronically Signed: Oscar Craven MD at 8:33 EDT ,
[2021-09-24] MEDS: Piperacil/Tazobactam 3.375 GM/50 ML ML IV ×2 (10:11→21:48)
[2021-09-24] MEDS: 0.9% Saline Lock 10 ML Syringe IV ×3 (10:15→13:50)
--- NOTE | 2021-09-24 10:55 | PN.HOSP_ITS ---
Subjective Subjective Patient seen and examined. She was on BiPAP at time of review. She was drowsy but able to answer questions. She did not have any active complaints. She developed low-grade fevers overnight. Patient's is on Levophed and vasopressin. She has not had any more diarrhea though. WBC trended up to 21.7 today from 1 6.9 yesterday. Objective Data Objective Data Vital Signs: Vital Signs Temp Pulse Resp BP Pulse Ox 99.9 F H 93 23 H 110/50 L 100 09/24/21 10:30 09/24/21 10:30 09/24/21 10:30 09/24/21 10:30 09/24/21 10:30 Oxygen Flow Rate (L/min) 2 Oxygen Delivery Method Nasal Cannula Weight: 155 lb 13.869 oz Body Mass Index (BMI) 26.4 Intake & Output: Intake and Output for Last 24 Hours 09/22/21 09/23/21 09/24/21 23:59 23:59 23:59 Intake Total 5691.21 / 5747.51 705.54 / 705.54 Output Total 1150 / 1150 1100 / 1100 Balance 4541.21 / 4597.51 -394.46 / -394.46 Lab / Micro Data Result Diagrams: 09/24/21 03:10 09/24/21 03:10 Labs: Laboratory Results - last 24 hr 09/22/21 23:55: Diff Path Review Reviewed 09/23/21 10:40: Lactic Acid 0.7 09/24/21 03:10: WBC 21.7 H, RBC 3.13 L, Hgb 9.8 L, Hct 30.3 L, MCV 96.8, MCH 31.3, MCHC 32.3, RDW Std Deviation 50.8 H, RDW Coeff of Deonte 14.4, Plt Count 189, MPV 10.3, Immature Gran % (Auto) [employer] PROGRAM DIRECTOR, Neut % (Auto) AFTER [employer]CHOOL PROGRAM DIRECTOR, Lymph % (Auto) AFTER SCHOOL PROGRAM DIRECTOR, [place] % (Auto) AFTER SCHOOL PROGRAM DIRECTOR, Eos % (Auto) AFTER SCHOOL PROGRAM DIRECTOR, Baso % (Auto) AFTER SCHOOL PROGRAM DIRECTOR, Absolute Neuts (auto) 17.8 H, Absolute Lymphs (auto) 0.65 L, Total Counted 100, Neutrophils % (Manual) 69, Band Neutrophils % 13 H, Lymphocytes % (Manual) 3 L, Monocytes % (Manual) 11 H, Myelocytes % 4 H, Nucleated RBC % AFTER SCHOOL PROGRAM DIRECTOR, Diff Path Review May foll, Platelet Estimate ADEQUATE, RBC Morphology NORM C+C 09/24/21 03:10: Sodium 141, Potassium 5.0, Chloride 114 H, Carbon Dioxide 20.0 L , Anion Gap 7, BUN 57 H, Creatinine 2.54 H, Estim Creat Clear Calc 18.81, Est GFR (MDRD) Af Amer 24 L, Est GFR (MDRD) Non-Af 20 L, BUN/Creatinine Ratio 22.4 H , Glucose 148 H, Calcium 7.3 L, Total Bilirubin 0.50, AST 30, ALT 37, Alkaline Phosphatase 176 H, Total Protein 5.3 L, Albumin 1.9 L, Globulin 3.4, Albumin/Globulin Ratio 0.6 L 09/24/21 03:10: Lipase 18 L Micro: Microbiology 09/23/21 10:30 Nasal Secretion SARS-CoV-2 Antigen (Rapid) - Final ABG Data ABG results: ABG 09/23/21 12:14 Specimen Type ART Sample Site R Radial pH 7.11 L* Bicarbonate Actual 20.5 L Total CO2 23 Base Excess -9 L O2 Saturation 77 L O2 % 21 ABG pCO2 64.2 H ABG pO2 56 L Royal Test Positive Crit Call To/Read Back Yes Blood Gas Notified Whom BROWN Radiography Diagnostic Testing: Radiology Impression Renal Ultrasound 09/23/21 08:27 IMPRESSION: Normal ultrasound of the kidneys. Electronically Signed: Vinny Mcghee MD at 14:42 EDT , Chest X-Ray 09/23/21 10:20 IMPRESSION: The tip of the right central catheter is in the proximal portion of the superior vena cava. Electronically Signed: Vinny Mcghee MD at 14:41 EDT , Echocardiogram 09/23/21 10:43 Interpretation Summary The study was technically difficult. Contrast injection was performed. Segmental dysfunction with preserved ejection fraction (see wall motion). The estimated ejection fraction is 65 %. Moderate (2+) eccentric mitral valve insufficiency. Mild tricuspid valve insufficiency. Right ventricular systolic pressure estimated to be 43 mmHg. No evidence for diastolic dysfunction. Ordering Physician: Anurag Flannery Referring Physician: Maryam Pineda Performed By: Yesika Guidry, JENNIE, RVT X-Ray 09/24/21 06:33 IMPRESSION: Normal x-ray examination of the abdomen and pelvis. Electronically Signed: Oscar Craven MD at 8:34 EDT , Chest X-Ray 09/24/21 07:53 IMPRESSION: No change from 09/23/2021. Electronically Signed: Oscar Craven MD at 8:33 EDT , Physical Exam Const alert General Appearance: cooperative Orientation / Consciousness: lethargic Nutritional Appearance: overweight HEENT normocephalic and head/scalp atraumatic Head and Scalp: normocephalic Mouth: dry mucous membranes Eyes PERRL, EOMs intact bilaterally, conjunctivae normal and no scleral icterus Neck no lymphadenopathy and supple General: trachea midline Resp normal air movement and clear to auscultation bilaterally Resp Narrative: Tachypneic, mildly diminished breath sounds bibasilarly. No wheezes or crackles. on BIPAP Cardio regular rate, regular rhythm, S1 normal heart sound, S2 normal heart sound, no murmurs and peripheral pulses 2+ throughout GI GI Narrative: Obese abdomen, mild generalized tenderness. No guarding or rebound tenderness. Auscultation: hypoactive bowel sounds Palpation: firm and tender Extremity normal to inspection, full ROM, normal capillary refill and no clubbing, cyanosis or edema General Extremity: no tenderness to palpation of joints or extremities Peripheral Pulses: Yes pulses 2+ throughout Skin no rashes or lesions noted General Skin Exam: no breakdown and turgor normal Lesions: no lesions Rashes: no rashes Neuro CN's II-XII intact bilaterally, moves all extremities, no focal motor deficits and no sensory deficits noted Neuro Narrative: patient lethargic Sensorium / Orientation: awake Speech: speech normal Motor Exam: general weakness Psych thought process normal and cooperative Psych Narrative: flat and lethargic affect Appearance: appropriate Assessment & Plan Assessment/Plan (1) Acute kidney injury: (2) Shock: PLAN: #Shock, most likely septic shock vs hypovolemic shock * patient remains on levophed and vasopressin for hemodynamic support * hasnt had any more diarrhea. * on IV vancomycin and zosyn. Blood cultures are pending * C Diff and enteric panel pending, but she hasnt had any more diarrhea since admission. * #Acute hypoxic and hypercapnic respiratory failure due to COPD and TIO * she does have a history of COPD and TIO * ABG done showed pH of 7.11 with bicarb of 64.2 * on bipap * #GUME * Cr is down to 2.54 * renal USG is normal * will monitor Cr #Diarrhea: largely resolved. hasnt had any more diarrhea since admission #Hypertension; BP meds on hold due to septic shock. #Acute metabolic encephalopathy * this is likely due to shock. * should improve as shock also improves * #Depression: on escitalopram DVT prophylaxis: lovenox Charges/Coding Visit Charges Inpatient E&M: 73594 [facility] Hosp L3
[2021-09-24] MEDS: Hydrocortisone Sod Succinate 100 MG/2 ML Vial 50 MG IV ×3 (11:48→23:58)
[2021-09-24] MEDS: Dext 5%-0.45% NS 1,000 ML 125 ML IV ×2 (13:23→21:12)
[2021-09-24 13:24] LABS: International Normalized Ratio 1.1
[2021-09-24 13:25] LABS: Partial Thromboplast Time 36.1 Seconds (24.1-36.2)
[2021-09-24 13:29] LABS: Pathologist Review Reviewed
[2021-09-24] MEDS: Heparin Injection (Vial) 5,000 UNIT/ML VIAL 4500 UNIT IV (13:34)
[2021-09-24] MEDS: Bisacodyl 10 MG Suppository RC (13:51)
--- NOTE | 2021-09-24 17:26 | NURSING ---
education re chronic illness deferred till acute illness resolving
[2021-09-24] MEDS: Haloperidol Lactate 5 MG/ML Vial 2.5 MG IV (20:17)
[2021-09-24 20:34] LABS: Partial Thromboplast Time > 200.0 Seconds (24.1-36.2)
[2021-09-24 20:46] LABS: Allen Test Positive; Base Excess -6 mmol/L (-2 to +2); Bicarbonate 21.6 mmol/L (22-26); Blood Gas Specimen Type ART; FI02 25; O2 Delivery Device BiPAP; PEEP 10; PO2 50 mmHG (75-100); RR 12; SITE R Radial; SO2 77 % (95-99); Total Carbon Dioxide 23 mmol/L; Vt 400; pCO2 52.7 mmHg (35-45); pH 7.22 (7.35-7.45)
[2021-09-24] MEDS: Ondansetron 4 MG/2 ML Vial IV (23:59)
[2021-09-25] VITALS (54 sets, daily range): BP systolic 86–126; BP diastolic 43–100; PULSE 62–100; RESP 12–32; TEMP 36.8–37.1; O2SAT 93–100
[2021-09-25] MEDS: Haloperidol Lactate 5 MG/ML Vial 2.5 MG IV (01:59)
[2021-09-25 05:01] LABS: Absolute Lymphocyte Count 0.57 X10^3/uL (0.83-4.51); Absolute Neutrophil Count 14.9 X10^3/uL (2.0-7.7); Basophil# 0.05 X10^3/uL; Basophil% 0.3 % (0-1); Eosinophil# 0.03 X10^3/uL; Eosinophils% 0.2 % (0-5); Hematocrit 27.8 % (37-47); Hemoglobin 8.9 g/dL (12.0-15.0); Lymphocyte # 0.57 X10^3/ul (0.83-4.51); Lymphocyte % 3.3 % (19-41); Mean Corpuscular Hgb 30.8 pg (27.0-32.0); Mean Corpuscular Volume 96.2 fL (81-99); Mean Platelet Vol. 10.6 fl (6.2-12.0); Monocyte% 6.4 % (0-10); NRBC Flagged by Analyzer 0.1 % (0-5); Neutrophil # 14.87 X10^3/uL (2.7-7.7); Neutrophil % 87.2 % (47-70); POSITIVE DIFFERENTIAL YES; Platelet Count 155 K/mm3 (150-450); RBC Distribution Width SD 53.4 fl (35.1-43.9); Red Blood Count 2.89 M/mm3 (4.2-5.4); White Blood Count 17.1 K/mm3 (4.4-11.0)
[2021-09-25 05:03] LABS: Differential Indicated SCAN CRITERIA MET
[2021-09-25 05:08] LABS: Partial Thromboplast Time 148.1 Seconds (24.1-36.2)
[2021-09-25 05:13] LABS: Vancomycin, Random Level 8.5 ug/mL (0.0-15.0)
[2021-09-25 05:42] LABS: ALB/GLOB Ratio 0.6 RATIO (0.9-2.4); AST(SGOT) 28 U/L (15-37); Alanine Aminotransfer ALT/SGPT 29 U/L (13-56); Albumin, Serum 1.9 g/dL (3.2-5.0); Alkaline Phosphatase 141 U/L (45-117); Anion Gap 3 (5-15); BUN 35 mg/dL (7-18); BUN/Creat Ratio 25.7 RATIO (10-20); Calcium,Total 7.5 mg/dL (8.5-10.1); Chloride 118 mmol/L (98-107); Creatinine, Serum 1.36 mg/dL (0.55-1.02); EST Glomerular Filtration Rate 41 mL/min (>60); Est Glom Filt Rate - Afr Amer 50 mL/min (>60); Estimated Creatinine Clearance 35.14 ml/min; Globulin 3.4 g/dL (2.2-4.2); Glucose 220 mg/dL (74-106); Protein, Total 5.3 g/dL (6.4-8.2); Sodium Level 145 mmol/L (136-145)
[2021-09-25] MEDS: Hydrocortisone Sod Succinate 100 MG/2 ML Vial 50 MG IV ×3 (05:47→18:04)
--- NOTE | 2021-09-25 05:52 | PN.CC_ITS ---
Assessment & Plan Assessment/Plan (1) Acute kidney injury: PLAN: RECOMMENDATIONS: 1. Continue vasopressor support in an attempt to maintain a mean arterial pressure at or above 65 mmHg. 2. Continue stress dose steroids. We will begin to wean once off of vasopressor support. 3. Continue empiric broad-spectrum antimicrobials. 4. Continue bronchodilators and inhaled corticosteroid. 5. Obtain CTA chest, and if negative, discontinue heparin infusion. 6. Okay to advance diet if mentation continues to improve. 7. Continue nocturnal AVAPS therapy. IMPRESSIONS: 1. Septic versus hypovolemic shock The patient presented to the hospital with a constellation of symptoms including abdominal pain and diarrhea. She developed persistent tachypnea and had an elevated white blood cell count with bandemia concerning for sepsis due to pos sible infectious colitis or cystitis with acute sepsis related organ dysfunction as manifested by fluid refractory hypotension, acute kidney injury and altered mentation. The patient did ultimately have to be placed on vasopressor support due to her fluid refractory hypotension. She was also started on empiric broad- spectrum antimicrobials. C. difficile PCR and enteric panel are pending. No ot her sources of infection have yet to be identified. Echocardiogram was largely unrevealing with improvement in her ejection fraction when compared to previous. 2. Acute kidney injury Improving. Most likely prerenal in etiology and related to intravascular volume depletion in the setting of GI losses. There has been some interval improvement in her creatinine. Recommend continuing vasopressor support in an attempt to maintain hemodynamic stability. Continue to monitor urine output for now. No current indication for renal replacement therapy. 3. Metabolic encephalopathy I do follow the patient in the pulmonary medicine clinic and she is clearly altered as compared to her baseline. I do suspect this is secondary to underlying metabolic derangements in the setting of #1. Continue supportive measures as noted above. Avoid sedating medications. 4. Abdominal pain/diarrhea Possibly due to self-limited viral gastroenteritis. No further diarrhea has been noted following transfer to ICU. 5. History of COPD/chronic hypoxemic respiratory failure/obstructive sleep apnea The patient has a known history of obstructive lung disease, for which I would recommend that she be maintained on scheduled bronchodilators and inhaled corticosteroid. The patient will be maintained on AVAPS therapy in lieu of her home astral noninvasive ventilator. TIME: 34 minutes of critical care time, independent of procedures, was spent addressing the patient's septic versus hypovolemic shock, acute kidney injury, metabolic encephalopathy, abdominal pain, diarrhea, COPD, review of all data and collaboration with the care team. Subjective Subjective The patient was seen and examined at the bedside this morning. Events from the last 24 hours have been reviewed. The patient is currently afebrile. Her vasopressin was able to be discontinued and she remains on Levophed at 6 mcg/min. The patient has been tolerant of AVAPS therapy overnight. She has remained intermittently confused. She did receive a suppository yesterday and did have a small bowel movement noted overnight. She is currently documented to be overall net +5.6 L the hospitalization. She denies any overt abdominal pain this morning. Creatinine has improved to 1.36 this morning. Objective Data Objective Data The patient's most recent lab work, culture data and imaging studies have all been personally reviewed. Surface echocardiogram demonstrated normal LV size with segmental systolic dysfunction and an ejection fraction of 65%. Right ventricular systolic pressure was estimated to be 43 mmHg. Covid rapid antigen testing was negative. Blood and urine cultures have not demonstrated any growth to date. Vital Signs: Vital Signs Temp Pulse Resp BP Pulse Ox 98.6 F 64 19 H 105/55 L 100 09/25/21 03:00 09/25/21 05:45 09/25/21 05:00 09/25/21 05:45 09/25/21 05:00 Oxygen Flow Rate (L/min) 3 Oxygen Delivery Method Bi-pap Weight: 73.5 kg Body Mass Index (BMI) 26.4 Intake & Output: Intake and Output for Last 24 Hours 09/23/21 09/24/21 09/25/21 23:59 23:59 23:59 Intake Total 5691.21 / 5747.51 2306.84 / 2325.64 202.09 / 202.09 Output Total 1150 / 1150 2050 / 2050 325 / 325 Balance 4541.21 / 4597.51 256.84 / 275.64 -122.91 / -122.91 Lab / Micro Data Attestation: I reviewed the patient's lab results. Result Diagrams: 09/25/21 04:30 09/25/21 04:30 Labs: Laboratory Results - last 24 hr 09/24/21 03:10: Diff Path Review Reviewed 09/24/21 03:10: Lipase 18 L 09/24/21 13:05: PT 14.0, INR 1.1, APTT 36.1 09/24/21 19:55: APTT > 200.0 H* 09/25/21 04:30: Random Vancomycin 8.5 09/25/21 04:30: WBC 17.1 H, RBC 2.89 L, Hgb 8.9 L, Hct 27.8 L, MCV 96.2, MCH 30.8, MCHC 32.0, RDW Std Deviation 53.4 H, RDW Coeff of Deonte 15.0 H, Plt Count 155, MPV 10.6, Immature Gran % (Auto) 2.600 H, Neut % (Auto) 87.2 H, Lymph % (Auto) 3.3 L, [place] % (Auto) 6.4, Eos % (Auto) 0.2, Baso % (Auto) 0.3, Absolute Neuts (auto) 14.9 H, Absolute Lymphs (auto) 0.57 L, Nucleated RBC % 0.1 09/25/21 04:30: Sodium 145, Potassium 4.0, Chloride 118 H, Carbon Dioxide 24.0, Anion Gap 3 L, BUN 35 H, Creatinine 1.36 H, Estim Creat Clear Calc 35.14, Est GFR (MDRD) Af Amer 50 L, Est GFR (MDRD) Non-Af 41 L, BUN/Creatinine Ratio 25.7 H , Glucose 220 H, Calcium 7.5 L, Total Bilirubin 0.30, AST 28, ALT 29, Alkaline Phosphatase 141 H, Total Protein 5.3 L, Albumin 1.9 L, Globulin 3.4, Albumin/Globulin Ratio 0.6 L 09/25/21 04:30: APTT 148.1 H* Micro: Microbiology 09/23/21 01:54 Urine, Clean Catch Urine Culture - Preliminary Culture exhibits no growth. 09/23/21 10:30 Nasal Secretion SARS-CoV-2 Antigen (Rapid) - Final ABG Data ABG results: ABG 09/24/21 20:41 Specimen Type ART Sample Site R Radial pH 7.22 L Bicarbonate Actual 21.6 L Total CO2 23 Base Excess -6 L O2 Saturation 77 L O2 % 25 ABG pCO2 52.7 H ABG pO2 50 L Royal Test Positive Respiration Rate 12 O2 Delivery Device BiPAP Tidal Volume 400 POC PEEP 10 Radiography Diagnostic Testing: Radiology Impression KUB X-Ray 09/24/21 06:33 IMPRESSION: Normal x-ray examination of the abdomen and pelvis. Electronically Signed: Oscar Craven MD at 8:34 EDT , Chest X-Ray 09/24/21 07:53 IMPRESSION: No change from 09/23/2021. Electronically Signed: Oscar Craven MD at 8:33 EDT , Physical Exam Const alert and no apparent distress General Appearance: cooperative and on BiPAP Orientation / Consciousness: awake and confused HEENT normocephalic and head/scalp atraumatic Eyes PERRL, EOMs intact bilaterally and conjunctivae normal Neck supple General: trachea midline and CVC in place Chest inspection of chest normal Resp Auscultation: diminished lung sounds; Negative for rales, rhonchi or wheezes Cardio regular rate and regular rhythm GI soft to palpation and non-tender Auscultation: hypoactive bowel sounds Palpation: Negative for rigid Extremity no clubbing, cyanosis or edema Skin no rashes or lesions noted Neuro moves all extremities and no focal motor deficits Psych cooperative Charges/Coding Procedures Hospitalists Procedures: 35746 Critial Care 1st Hr
[2021-09-25] MEDS: Dext 5%-0.45% NS 1,000 ML 125 ML IV ×3 (06:06→21:16)
[2021-09-25 07:06] LABS: D-Dimer Quantitative (DVT/PE) 5.51 FEU/ug/m (0.27-0.49)
[2021-09-25] MEDS: Ipratropium/Albuterol Sulfate 3 ML AMPUL.NEB INHALATION ×3 (07:49→18:50)
[2021-09-25] MEDS: Budesonide Respules 0.5 MG/2 ML AMPUL.NEB. INHALATION ×2 (07:49→18:50)
--- NOTE | 2021-09-25 07:51 | CT_ITS ---
STUDY: CTA CHEST REASON FOR EXAM: Female, 65 years old. + D dimer. Confusion. RADIATION DOSAGE (If Supplied By Facility): CTDIvol = ( 10.14 ) mGy, DLP = ( 427.86 ) mGycm TECHNIQUE: The examination was performed with the intravenous administration of IV 75mL Isovue-370. Post-processing of the angiographic images was performed, with multiplanar reformation and 3D reconstruction. Individualized dose optimization techniques were used for this CT. COMPARISON: None. FINDINGS: A right-sided central catheter seen within the superior vena cava. Normal enhancement of the main pulmonary artery and right and left pulmonary arteries. Normal enhancement of the bilateral peripheral pulmonary arteries. There is no demonstrated pulmonary embolism. Normal thoracic aorta and visualized great vessels. There is no demonstrated aortic dissection. Normal heart and pericardium. There are visualized mediastinal lymph nodes, which are within normal size limits, and with normal morphology. Normal hilar regions. Normal visualized trachea and bronchi. The lungs are well expanded. There is evidence of emphysematous changes more prominent in the upper lobes. Small bilateral pleural effusions with bibasilar atelectasis and/or infiltrates. Normal chest wall structures. There are degenerative changes of thoracic spine. Normal visualized upper abdomen. CT/CTA Chest W/WO Contrast IMPRESSION: No evidence of a pulmonary embolism. Mild degree of emphysematous changes more prominent in the upper lobes. Small bilateral pleural effusions with bibasilar atelectasis and/or infiltrates. Electronically Signed: Vinny Mcghee MD at 8:51 EDT ,
[2021-09-25 08:01] LABS: Base Excess -5 mmol/L (-2 to +2); Bicarbonate 22.6 mmol/L (22-26); Blood Gas Specimen Type ART; PO2 99 mmHG (75-100); SITE L Radial; SO2 96 % (95-99); Total Carbon Dioxide 24 mmol/L; pCO2 54.2 mmHg (35-45); pH 7.23 (7.35-7.45)
[2021-09-25] MEDS: Vancomycin IV 1,000 MG/200 ML BAG 200 MG IV (08:57)
[2021-09-25] MEDS: Cholecalciferol (VIT D3) 25 MCG TABLET (1,000 UNITS) PO (09:32)
[2021-09-25] MEDS: Pantoprazole Sodium 40 MG Tablet PO (09:32)
[2021-09-25] MEDS: DULoxetine Hcl 60 MG Capsule PO (09:32)
[2021-09-25] MEDS: Folic Acid 1 MG Tablet PO (09:32)
[2021-09-25] MEDS: Potassium Chloride Oral Tablet 20 MEQ PO (09:32)
[2021-09-25] MEDS: Escitalopram Oxalate 10 MG Tablet PO (09:32)
--- NOTE | 2021-09-25 09:39 | PCM.RX.CS ---
Consult Pharmacy has been consulted to manage selected antiobiotic: Vancomycin Type of Consult: Follow-up Suspected Infection: Other Prior Doses of Antibiotics Received/Current Regimen: 1750MG GIVEN 09/23/21 @ 1427 Labs: Sodium 145 mmol/L (136-145) 09/25/21 04:30 Potassium 4.0 mmol/L (3.5-5.1) 09/25/21 04:30 Chloride 118 mmol/L (98-107) H 09/25/21 04:30 Carbon Dioxide 24.0 mmol/L (21.0-32.0) 09/25/21 04:30 Anion Gap 3 (5-15) L 09/25/21 04:30 BUN 35 mg/dL (7-18) H 09/25/21 04:30 Creatinine 1.36 mg/dL (0.55-1.02) H 09/25/21 04:30 Est GFR (MDRD) Af Amer 50 mL/min (>60) L 09/25/21 04:30 Est GFR (MDRD) Non-Af 41 mL/min (>60) L 09/25/21 04:30 BUN/Creatinine Ratio 25.7 RATIO (10-20) H 09/25/21 04:30 Glucose 220 mg/dL (74-106) H 09/25/21 04:30 Random Vancomycin 8.5 ug/mL (0.0-15.0) 09/25/21 04:30 Microbiology: Microbiology 09/23/21 01:54 Urine, Clean Catch Urine Culture - Final Mixed Gram Positive Organisms 09/22/21 23:55 Blood Culture (Wb) - Anticubital Right Blood Culture - Preliminary No growth in 48 hours. 09/22/21 23:55 Blood Culture (Wb) - Left Forearm Blood Culture - Preliminary No growth in 48 hours. 09/23/21 10:30 Nasal Secretion SARS-CoV-2 Antigen (Rapid) - Final Weight used for dosin kg Estimated Creatinine Clearance: 35.14 Goal Trough: 15-20 mcg/mL Pharmacy Plan for Drug Dosing: ON 09/25/2021 VANCOMYCIN 1000MG X1 GIVEN AT 0857. random vancomycin level ordred 0600 09/26/21 Pharmacy Service will continue to monitor and adjust dosing as required. Follow-Up Labs: Trough Vancomycin Labs to be done on [date and time ordered]: 09/26/2021 @ 0600
[2021-09-25] MEDS: Piperacil/Tazobactam 3.375 GM/50 ML ML IV ×2 (10:13→21:15)
--- NOTE | 2021-09-25 10:43 | PN.HOSP_ITS ---
Subjective Subjective Patient seen and examined. She was alert and oriented today. She was on 2L of oxygen. She tells me she doesnt know what happened and what made her so ill. She remembers falling down a couple of weeks ago, and is wondering if her fall oculd have contributed to her current illness. She cannot tell me anything more about the circumstances surrounding the fall. REview of systems is otherwise negative. She has been weaned off vasopressin, but remains on levophed.She ws started on heparin drip yesterday due to concerns for PE being the cause of the respiratory failure. She is in cumulative positive balance by 5.9L. WBC is down to 17.1. D dimer is 5.51. CT chest done this morning is negative for PE Objective Data Objective Data Vital Signs: Vital Signs Temp Pulse Resp BP Pulse Ox 98.6 F 100 29 H 106/71 98 09/25/21 03:00 09/25/21 10:00 09/25/21 10:00 09/25/21 10:00 09/25/21 10:00 Oxygen Flow Rate (L/min) 2 Oxygen Delivery Method Nasal Cannula Weight: 162 lb 0.636 oz Body Mass Index (BMI) 26.4 Intake & Output: Intake and Output for Last 24 Hours 09/23/21 09/24/21 09/25/21 23:59 23:59 23:59 Intake Total 5691.21 / 5747.51 2306.84 / 2325.64 1470.35 / 1470.35 Output Total 1150 / 1150 2050 / 2050 325 / 325 Balance 4541.21 / 4597.51 256.84 / 275.64 1145.35 / 1145.35 Lab / Micro Data Result Diagrams: 09/25/21 04:30 09/25/21 04:30 Labs: Laboratory Results - last 24 hr 09/23/21 01:54: Urine Color Lauryn, Urine Clarity Sl. Cloudy, Urine pH 5.0, Ur Specific [place] 1.025, Urine Protein 100 H, Urine Glucose (UA) 50 H, Urine Ketones 5 H, Urine Occult Blood 10 H, Urine Nitrite Negative, Urine Bilirubin 3 H, Urine Urobilinogen 4 H, Ur Leukocyte Esterase 100 H, Urine RBC 0 SEEN, Urine WBC 5-10 SEEN, Ur Squamous Epith Cells 0 SEEN, Ur Transition Epith Cell 0-5 SEEN, Calcium Oxalate Crystal 1+, Amorphous Sediment 2+, Urine Bacteria 1+, Urine Mucus 0 SEEN 09/24/21 03:10: Diff Path Review Reviewed 09/24/21 13:05: PT 14.0, INR 1.1, APTT 36.1 09/24/21 19:55: APTT > 200.0 H* 09/25/21 04:30: Random Vancomycin 8.5 09/25/21 04:30: WBC 17.1 H, RBC 2.89 L, Hgb 8.9 L, Hct 27.8 L, MCV 96.2, MCH 30.8, MCHC 32.0, RDW Std Deviation 53.4 H, RDW Coeff of [place]onte 15.0 H, Plt Count 155, MPV 10.6, Immature Gran % (Auto) 2.600 H, Neut % (Auto) 87.2 H, Lymph % (Auto) 3.3 L, [place] % (Auto) 6.4, Eos % (Auto) 0.2, Baso % (Auto) 0.3, Absolute Neuts (auto) 14.9 H, Absolute Lymphs (auto) 0.57 L, Nucleated RBC % 0.1 09/25/21 04:30: Sodium 145, Potassium 4.0, Chloride 118 H, Carbon Dioxide 24.0, Anion Gap 3 L, BUN 35 H, Creatinine 1.36 H, Estim Creat Clear Calc 35.14, Est GFR (MDRD) Af Amer 50 L, Est GFR (MDRD) Non-Af 41 L, BUN/Creatinine Ratio 25.7 H , Glucose 220 H, Calcium 7.5 L, Total Bilirubin 0.30, AST 28, ALT 29, Alkaline Phosphatase 141 H, Total Protein 5.3 L, Albumin 1.9 L, Globulin 3.4, Albumin/Globulin Ratio 0.6 L 09/25/21 04:30: APTT 148.1 H* 09/25/21 04:30: D-Dimer Quant (PE/DVT) 5.51 H* Micro: Microbiology 09/23/21 01:54 Urine, Clean Catch Urine Culture - Final Mixed Gram Positive Organisms 09/22/21 23:55 Blood Culture (Wb) - Anticubital Right Blood Culture - Preliminary No growth in 48 hours. 09/22/21 23:55 Blood Culture (Wb) - Left Forearm Blood Culture - Preliminary No growth in 48 hours. 09/23/21 10:30 Nasal Secretion SARS-CoV-2 Antigen (Rapid) - Final ABG Data ABG results: ABG 09/24/21 09/25/21 20:41 07:56 Specimen Type ART ART Sample Site R Radial L Radial pH 7.22 L 7.23 L Bicarbonate Actual 21.6 L 22.6 Total CO2 23 24 Base Excess -6 L -5 L O2 Saturation 77 L 96 O2 % 25 ABG pCO2 52.7 H 54.2 H ABG pO2 50 L 99 Royal Test Positive Respiration Rate 12 O2 Delivery Device BiPAP Liter Flow 2.0 Tidal Volume 400 POC PEEP 10 Radiography Diagnostic Testing: Radiology Impression Chest CTA 09/25/21 07:51 IMPRESSION: No evidence of a pulmonary embolism. Mild degree of emphysematous changes more prominent in the upper lobes. Small bilateral pleural effusions with bibasilar atelectasis and/or infiltrates. Electronically Signed: Vinny Mcghee MD at 8:51 EDT , Physical Exam Const alert and oriented x3 Constitutional Narrative: mild lethargy General Appearance: cooperative Exam Limitations: no limitations Nutritional Appearance: overweight HEENT normocephalic and head/scalp atraumatic Head and Scalp: normocephalic Eyes PERRL, EOMs intact bilaterally, conjunctivae normal and no scleral icterus Neck no lymphadenopathy and supple General: trachea midline Resp normal air movement and clear to auscultation bilaterally Resp Narrative: Tachypneic, mildly diminished breath sounds bibasilarly. No wheezes or crackles. on 2L of oxygen by nasal canula Cardio regular rate, regular rhythm, S1 normal heart sound, S2 normal heart sound, no murmurs and peripheral pulses 2+ throughout Cardio Narrative: Tachycardic. GI normal to inspection, nondistended, normoactive bowel sounds, soft to palpation, non-tender and non-distended Palpation: firm Extremity normal to inspection, full ROM, normal capillary refill and no clubbing, cyanosis or edema General Extremity: no tenderness to palpation of joints or extremities Peripheral Pulses: Yes pulses 2+ throughout Skin no rashes or lesions noted General Skin Exam: no breakdown and turgor normal Lesions: no lesions Rashes: no rashes Neuro oriented x3, CN's II-XII intact bilaterally, moves all extremities, no focal motor deficits and no sensory deficits noted Neuro Narrative: patient lethargic Sensorium / Orientation: awake and alert Speech: speech normal Motor Exam: general weakness Psych thought process normal, cooperative and affect normal Appearance: appropriate Assessment & Plan Assessment/Plan (1) Acute kidney injury: (2) Shock: PLAN: #Shock, most likely septic shock vs hypovolemic shock * now off vasopressin. Remains on levophed * blood cultures negative so far. * C diff screen pending. * urine culture growing mixed gram positive organisms * remains on IV vancomycin and zosyn * #Acute hypoxic and hypercapnic respiratory failure due to COPD and TIO * was started on heparin drip yesterday due to concerns for PE * CTA of the chest today was negative for PE and showed mild degree of e mphysematous changes more prominent in upper lobes and small bilatral pleral effusion with bibasilar atelectasis and/or infiltrates * she does have a history of COPD and TIO * now off BIPAP, on 2L of oxygen * ABG today shows pH of 7.23 with pCO2 of 54.2 #GUME * Cr is down to 1.36 * likely a pre-renal GUME due to decreased intake and diarrhea * renal USG is normal * will monitor Cr #Diarrhea: largely resolved. C Diff and enteric panel pending #Hypertension; BP meds on hold due to septic shock. #Acute metabolic encephalopathy * resolved. Patient is more alert and communicative today * #Depression: on escitalopram DVT prophylaxis: lovenox Charges/Coding Visit Charges Inpatient E&M: 70020 Subs Hosp L2
[2021-09-25] MEDS: Ensure Clear 120 ML Liquid PO ×3 (13:09→21:15)
[2021-09-25] MEDS: Heparin Injection (Vial) 5,000 UNIT/ML VIAL 5000 UNIT SC ×2 (13:12→21:20)
[2021-09-25] MEDS: Pramipexole Di-HCl 0.25 MG Tablet PO (21:20)
[2021-09-26] VITALS (30 sets, daily range): BP systolic 86–128; BP diastolic 48–103; PULSE 79–109; RESP 12–34; TEMP 36.9–37.6; O2SAT 92–100
[2021-09-26] MEDS: Hydrocortisone Sod Succinate 100 MG/2 ML Vial 50 MG IV ×4 (00:58→21:19)
[2021-09-26 03:45] LABS: Absolute Lymphocyte Count 0.53 X10^3/uL (0.83-4.51); Absolute Neutrophil Count 11.1 X10^3/uL (2.0-7.7); Basophil# 0.03 X10^3/uL; Basophil% 0.2 % (0-1); Hematocrit 29.9 % (37-47); Hemoglobin 9.5 g/dL (12.0-15.0); Lymphocyte # 0.53 X10^3/ul (0.83-4.51); Lymphocyte % 3.8 % (19-41); Mean Corp Hgb Conc 31.8 g/dL (32-36); Mean Corpuscular Hgb 30.6 pg (27.0-32.0); Mean Corpuscular Volume 96.5 fL (81-99); Mean Platelet Vol. 10.5 fl (6.2-12.0); Monocyte# 1.69 X10^3/uL; Monocyte% 12.3 % (0-10); NRBC Flagged by Analyzer 0 % (0-5); Neutrophil % 80.6 % (47-70); POSITIVE DIFFERENTIAL YES; Platelet Count 140 K/mm3 (150-450); RBC Distribution Width CV 15.2 % (11.6-14.6); RBC Distribution Width SD 53.6 fl (35.1-43.9); White Blood Count 13.8 K/mm3 (4.4-11.0)
[2021-09-26 03:47] LABS: Differential Indicated SCAN CRITERIA MET
[2021-09-26 04:07] LABS: ALB/GLOB Ratio 0.6 RATIO (0.9-2.4); AST(SGOT) 18 U/L (15-37); Alanine Aminotransfer ALT/SGPT 26 U/L (13-56); Alkaline Phosphatase 123 U/L (45-117); Anion Gap 3 (5-15); BUN 21 mg/dL (7-18); BUN/Creat Ratio 21.1 RATIO (10-20); Calcium,Total 7.9 mg/dL (8.5-10.1); Chloride 116 mmol/L (98-107); EST Glomerular Filtration Rate 59 mL/min (>60); Est Glom Filt Rate - Afr Amer 72 mL/min (>60); Estimated Creatinine Clearance 47.79 ml/min; Globulin 3.5 g/dL (2.2-4.2); Glucose 155 mg/dL (74-106); Potassium 3.4 mmol/L (3.5-5.1); Protein, Total 5.5 g/dL (6.4-8.2); Sodium Level 143 mmol/L (136-145)
[2021-09-26] MEDS: Dext 5%-0.45% NS 1,000 ML 125 ML IV (05:28)
[2021-09-26] MEDS: Heparin Injection (Vial) 5,000 UNIT/ML VIAL 5000 UNIT SC ×3 (05:35→21:19)
[2021-09-26] MEDS: 0.9% Saline Lock 10 ML Syringe IV ×2 (05:35→14:05)
--- NOTE | 2021-09-26 05:51 | PN.CC_ITS ---
Assessment & Plan Assessment/Plan (1) Acute kidney injury: PLAN: RECOMMENDATIONS: 1. Wean supplemental oxygen to maintain saturations at or above 90%. 2. Stop continuous IV fluids. 3. Begin to wean stress dose steroids. Change dosing frequency to twice daily. 4. Plan to stop antimicrobials today, given negative infectious work-up. 5. Continue nocturnal AVAPS therapy. 6. Speech therapy to reevaluate the patient today. IMPRESSIONS: 1. Septic versus hypovolemic shock The patient presented to the hospital with a constellation of symptoms including abdominal pain and diarrhea. She developed persistent tachypnea and had an elev ated white blood cell count with bandemia concerning for sepsis due to possible infectious colitis or cystitis with acute sepsis related organ dysfunction as manifested by fluid refractory hypotension, acute kidney injury and altered mentation. The patient did ultimately have to be placed on vasopressor support due to her fluid refractory hypotension. She was also started on empiric broad-spectrum antimicrobials. However, subsequent infectious work-up was unrevealing. The patient improved from a hemodynamic status with additional volume resuscitation and stress dose steroids. Therefore, it seems most plausible that the patient's presentation was likely the consequence of viral gastroenteritis leading to intravascular volume depletion. No other sources of infection were ever identified. Accordingly, I am going to discontinue the patient's antimicrobials and monitor her clinically. Echocardiogram was largely unrevealing with improvement in her ejection fraction when compared to previous. 2. Acute kidney injury Resolved. Most likely prerenal in etiology and related to intravascular volume depletion in the setting of GI losses. Creatinine has returned back to baseline. 3. Metabolic encephalopathy Improving. I do follow the patient in the pulmonary medicine clinic and she was clearly altered as compared to her baseline. I do suspect this is secondary to underlying metabolic derangements in the setting of #1. Continue supportive measures as noted above. Avoid sedating medications. 4. Abdominal pain/diarrhea Possibly due to self-limited viral gastroenteritis. No further diarrhea has been noted following transfer to ICU. C. difficile PCR was negative. Enteric pathogen panel was negative. 5. History of COPD/chronic hypoxemic respiratory failure/obstructive sleep apnea The patient has a known history of obstructive lung disease, for which I would recommend that she be maintained on scheduled bronchodilators and inhaled corticosteroid. The patient will be maintained on AVAPS therapy in lieu of her home astral noninvasive ventilator. This note was generated with [employer] software. It may contain incorrect words, spelling, and punctuation that were not noted in checking the note before signing. Subjective Subjective The patient was seen and examined at the bedside this morning. Events from the last 24 hours have been reviewed. The patient is currently afebrile, hemodynamically stable and maintaining appropriate oxygen saturations on 4 L/min via nasal cannula. The patient was able to be weaned off of Levophed yesterday around 10:30 PM. Although the patient was initially cleared by speech therapy for a diet, nursing staff did report that the patient was coughing frequently with any form of p.o. ingestion. The patient was tolerant of AVAPS therapy overnight. She still continues to experience intermittent periods of confusion. The patient is documented to be overall net +8.1 L for the hospitalization. Potassium is low this morning at 3.4. Creatinine has normalized. Objective Data Objective Data The patient's most recent lab work, culture data and imaging studies have all been personally reviewed. Surface echocardiogram demonstrated normal LV size with segmental systolic dysfunction and an ejection fraction of 65%. Right ventricular systolic pressure was estimated to be 43 mmHg. Covid rapid antigen testing was negative. Blood and urine cultures have not demonstrated any growth to date. Covid PCR was negative. Stool enteric panel was negative. Vital Signs: Vital Signs Temp Pulse Resp BP Pulse Ox 98.6 F 79 26 H 112/64 100 09/26/21 04:00 09/26/21 04:00 09/26/21 04:00 09/26/21 04:00 09/26/21 04:00 Oxygen Flow Rate (L/min) 2 Oxygen Delivery Method Nasal Cannula Weight: 73.5 kg Body Mass Index (BMI) 26.4 Intake & Output: Intake and Output for Last 24 Hours 09/24/21 09/25/21 09/26/21 23:59 23:59 23:59 Intake Total 2306.84 / 2325.64 3729.46 / 3729.46 1050 / 1050 Output Total 2049 / 2049 1125 / 1125 290 / 290 Balance 256.84 / 275.64 2604.46 / 2604.46 760 / 760 Lab / Micro Data Attestation: I reviewed the patient's lab results. Result Diagrams: 09/26/21 03:30 09/26/21 03:30 Labs: Laboratory Results - last 24 hr 09/23/21 01:54: Urine Color Lauryn, Urine Clarity Sl. Cloudy, Urine pH 5.0, Ur Specific [place] 1.025, Urine Protein 100 H, Urine Glucose (UA) 50 H, Urine Ketones 5 H, Urine Occult Blood 10 H, Urine Nitrite Negative, Urine Bilirubin 3 H, Urine Urobilinogen 4 H, Ur Leukocyte Esterase 100 H, Urine RBC 0 SEEN, Urine WBC 5-10 SEEN, Ur Squamous Epith Cells 0 SEEN, Ur Transition Epith Cell 0-5 SEEN, Calcium Oxalate Crystal 1+, Amorphous Sediment 2+, Urine Bacteria 1+, Urine Mucus 0 SEEN 09/25/21 04:30: D-Dimer Quant (PE/DVT) 5.51 H* 09/26/21 03:30: WBC 13.8 H, RBC 3.10 L, Hgb 9.5 L, Hct 29.9 L, MCV 96.5, MCH 30.6, MCHC 31.8 L, RDW Std Deviation 53.6 H, RDW Coeff of Deonte 15.2 H, Plt Count 140 L, MPV 10.5, Immature Gran % (Auto) 3.100 H, Neut % (Auto) 80.6 H, Lymph % (Auto) 3.8 L, [place] % (Auto) 12.3 H, Eos % (Auto) 0.0, Baso % (Auto) 0.2, Absolute Neuts (auto) 11.1 H, Absolute Lymphs (auto) 0.53 L, Nucleated RBC % 0, Diff Path Review November09/26/21 03:30: Sodium 143, Potassium 3.4 L, Chloride 116 H, Carbon Dioxide 24.0, Anion Gap 3 L, BUN 21 H, Creatinine 1.00, Estim Creat Clear Calc 47.79, Est GFR (MDRD) Af Amer 72, Est GFR (MDRD) Non-Af 59 L, BUN/Creatinine Ratio 21.1 H, Glucose 155 H, Calcium 7.9 L, Total Bilirubin 0.30, AST 18, ALT 26, Alkaline Phosphatase 123 H, Total Protein 5.5 L, Albumin 2.0 L, Globulin 3.5, Albumin/Globulin Ratio 0.6 L Micro: Microbiology 09/23/21 23:30 Stool Enteric Bacteriology - Final 09/23/21 23:30 Stool C. difficile DNA Amplification - Final 09/23/21 01:54 Urine, Clean Catch Urine Culture - Final Mixed Gram Positive Organisms 09/22/21 23:55 Blood Culture (Wb) - Anticubital Right Blood Culture - Prel iminary No growth in 48 hours. 09/22/21 23:55 Blood Culture (Wb) - Left Forearm Blood Culture - Preliminary No growth in 48 hours. 09/23/21 10:30 Nasal Secretion SARS-CoV-2 Antigen (Rapid) - Final ABG Data ABG results: ABG 09/25/21 07:56 Specimen Type ART Sample Site L Radial pH 7.23 L Bicarbonate Actual 22.6 Total CO2 24 Base Excess -5 L O2 Saturation 96 ABG pCO2 54.2 H ABG pO2 99 Liter Flow 2.0 Radiography Diagnostic Testing: Radiology Impression Chest CTA 09/25/21 07:51 IMPRESSION: No evidence of a pulmonary embolism. Mild degree of emphysematous changes more prominent in the upper lobes. Small bilateral pleural effusions with bibasilar atelectasis and/or infiltrates. Electronically Signed: Vinny Mcghee MD at 8:51 EDT , Physical Exam Const alert and no apparent distress Constitutional Narrative: Sitting in bedside recliner. General Appearance: cooperative Orientation / Consciousness: awake HEENT normocephalic and head/scalp atraumatic Eyes PERRL, EOMs intact bilaterally and conjunctivae normal Neck supple General: trachea midline and CVC in place Chest inspection of chest normal Resp Auscultation: diminished lung sounds; Negative for rales, rhonchi or wheezes Cardio regular rate and regular rhythm GI soft to palpation and non-tender Auscultation: hypoactive bowel sounds Palpation: Negative for rigid Extremity no clubbing, cyanosis or edema Skin no rashes or lesions noted Neuro moves all extremities and no focal motor deficits Psych Mood & Affect: flat affect Charges/Coding Visit Charges Inpatient E&M: 78241 Subs Hosp L3
[2021-09-26] MEDS: Ipratropium/Albuterol Sulfate 3 ML AMPUL.NEB INHALATION ×3 (06:49→18:51)
[2021-09-26] MEDS: Budesonide Respules 0.5 MG/2 ML AMPUL.NEB. INHALATION ×2 (06:50→18:51)
--- NOTE | 2021-09-26 09:52 | PN.HOSP_ITS ---
Subjective Subjective Patient seen and examined. She had an uneventful night. She has been off the levophed since last night. She has no active complaints today. She denies any fever, chills, nausea, vomiting or diarrhea. REview of systems is otherwise negative. She is on 2L of oxygen by nasal canula Objective Data Objective Data Vital Signs: Vital Signs Temp Pulse Resp BP Pulse Ox 98.6 F 91 30 H 115/64 99 09/26/21 07:00 09/26/21 07:00 09/26/21 07:00 09/26/21 07:00 09/26/21 07:00 Oxygen Flow Rate (L/min) 2 Oxygen Delivery Method Nasal Cannula Weight: 162 lb 0.636 oz Body Mass Index (BMI) 26.4 Intake & Output: Intake and Output for Last 24 Hours 09/24/21 09/25/21 09/26/21 23:59 23:59 23:59 Intake Total 2306.84 / 2325.64 3729.46 / 3729.46 1468.75 / 1468.75 Output Total 2049 / 2049 1125 / 1125 940 / 940 Balance 256.84 / 275.64 2604.46 / 2604.46 528.75 / 528.75 Lab / Micro Data Result Diagrams: 09/26/21 03:30 09/26/21 03:30 Labs: Laboratory Results - last 24 hr 09/26/21 03:30: WBC 13.8 H, RBC 3.10 L, Hgb 9.5 L, Hct 29.9 L, MCV 96.5, MCH 30.6, MCHC 31.8 L, RDW Std Deviation 53.6 H, RDW Coeff of Deonte 15.2 H, Plt Count 140 L, MPV 10.5, Immature Gran % (Auto) 3.100 H, Neut % (Auto) 80.6 H, Lymph % (Auto) 3.8 L, [place] % (Auto) 12.3 H, Eos % (Auto) 0.0, Baso % (Auto) 0.2, Absolute Neuts (auto) 11.1 H, Absolute Lymphs (auto) 0.53 L, Nucleated RBC % 0, Diff Path Review November09/26/21 03:30: Sodium 143, Potassium 3.4 L, Chloride 116 H, Carbon Dioxide 24.0, Anion Gap 3 L, BUN 21 H, Creatinine 1.00, Estim Creat Clear Calc 47.79, Est GFR (MDRD) Af Amer 72, Est GFR (MDRD) Non-Af 59 L, BUN/Creatinine Ratio 21.1 H, Glucose 155 H, Calcium 7.9 L, Total Bilirubin 0.30, AST 18, ALT 26, Alkaline Phosphatase 123 H, Total Protein 5.5 L, Albumin 2.0 L, Globulin 3.5, Albumin/Globulin Ratio 0.6 L Micro: Microbiology 09/23/21 23:30 Stool Enteric Bacteriology - Final 09/23/21 23:30 Stool C. difficile DNA Amplification - Final 09/23/21 01:54 Urine, Clean Catch Urine Culture - Final Mixed Gram Positive Organisms 09/22/21 23:55 Blood Culture (Wb) - Anticubital Right Blood Culture - Preli minary No growth in 48 hours. 09/22/21 23:55 Blood Culture (Wb) - Left Forearm Blood Culture - Preliminary No growth in 48 hours. 09/23/21 10:30 Nasal Secretion SARS-CoV-2 Antigen (Rapid) - Final Physical Exam Const alert and oriented x3 Constitutional Narrative: mild lethargy General Appearance: cooperative Orientation / Consciousness: lethargic Exam Limitations: no limitations Nutritional Appearance: overweight HEENT normocephalic and head/scalp atraumatic Eyes PERRL, EOMs intact bilaterally, conjunctivae normal and no scleral icterus Neck no lymphadenopathy and supple General: trachea midline Resp normal air movement and clear to auscultation bilaterally Resp Narrative: Tachypneic, mildly diminished breath sounds bibasilarly. No wheezes or crackles. on 2L of oxygen by nasal canula Cardio regular rate, regular rhythm, S1 normal heart sound, S2 normal heart sound, no murmurs and peripheral pulses 2+ throughout GI normal to inspection, nondistended, normoactive bowel sounds, soft to palpation, non-tender and non-distended Auscultation: hypoactive bowel sounds Palpation: firm Extremity normal to inspection, full ROM, normal capillary refill and no clubbing, cyanosis or edema General Extremity: no tenderness to palpation of joints or extremities Peripheral Pulses: Yes pulses 2+ throughout Skin no rashes or lesions noted General Skin Exam: no breakdown and turgor normal Lesions: no lesions Rashes: no rashes Neuro oriented x3, CN's II-XII intact bilaterally, moves all extremities, no focal motor deficits and no sensory deficits noted Neuro Narrative: patient lethargic Sensorium / Orientation: awake and alert Speech: speech normal Motor Exam: general weakness Psych thought process normal and cooperative Psych Narrative: flat and lethargic affect Appearance: appropriate Assessment & Plan Assessment/Plan (1) Acute kidney injury: (2) Shock: PLAN: #Shock, most likely septic shock vs hypovolemic shock * now off vasopressin and levophed as well * blood cultures negative so far. * C diff screen pending. * urine culture growing mixed gram positive organisms * remains on IV vancomycin and zosyn * #Acute hypoxic and hypercapnic respiratory failure due to COPD and TIO * CTA of the chest was negative for PE and showed mild degree of emphysematous changes more prominent in upper lobes and small bilatral pleral effusion with bibasilar atelectasis and/or infiltrates * she does have a history of COPD and TIO * now off BIPAP, on 2L of oxygen #Hypokalemia: K is 3.4. Will replace and trend. #GUME * resolved. Cr is 1. #Diarrhea: l resolved. C Diff and enteric panel pending #Hypertension; BP meds on hold due to septic shock. #Acute metabolic encephalopathy * resolved. * #Depression: on escitalopram DVT prophylaxis: lovenox Charges/Coding Visit Charges Inpatient E&M: 63267 Subs Hosp L2
--- NOTE | 2021-09-26 10:11 | CASEMGMT ---
Social Work SW attended ICU rounds. Pt continues to be confused. Min Ax2 - Max Ax2 with therapy. After rounds, SW met with pt and boyfriend Oscar and discussed possible need for SNF and that pt dgt will be decision maker as pt does not have a healthcare POA. Oscar is understanding. Phone call to pt dgt Ameena and explained above. Ameena states that she is not agreeable to intermodal truck driver placement in ECF for pt and that if pt needs care she will provide it. SW explained at this time pt will need 24 hour supervision and discussed functional ability with therapy. Ameena states she may be open to short term SNF placement. Options given to Ameena over the phone. Ameena plans to come in later today to talk with Oscar about plans. SW will leave list of SNF providers including quality and resource use data in pt room for Ameena and Oscar to review. SW will continue to follow for possible SNF placement. RUI Noble
[2021-09-26 12:22] LABS: Pathologist Review Reviewed
[2021-09-26] MEDS: DULoxetine Hcl 60 MG Capsule PO (13:44)
[2021-09-26] MEDS: Folic Acid 1 MG Tablet PO (13:44)
[2021-09-26] MEDS: Potassium Chloride Oral Tablet 20 MEQ PO (13:44)
[2021-09-26] MEDS: Pantoprazole Sodium 40 MG Tablet PO (13:44)
[2021-09-26] MEDS: Escitalopram Oxalate 10 MG Tablet PO (13:44)
[2021-09-26] MEDS: Cholecalciferol (VIT D3) 25 MCG TABLET (1,000 UNITS) PO (13:45)
--- NOTE | 2021-09-26 16:26 | CASEMGMT ---
Social Work Phone call placed to pt daughter Ameena to discuss discharge plan. Ameena states that she has talked to pt boyfriend Nasim as well as her children, and family has decided that they do not want pt to go to a SNF at this time but they will be able to care for pt at home. Ameena is aware pt will need 24 hour care. Ameena is agreeable to home health care if warranted. RNRUI New
[2021-09-26] MEDS: Ensure Clear 120 ML Liquid PO ×2 (17:29→21:18)
[2021-09-26] MEDS: Acetaminophen 325 MG Tablet 650 MG PO (21:18)
[2021-09-26] MEDS: Pramipexole Di-HCl 0.25 MG Tablet PO (21:19)
[2021-09-26] MEDS: MELATONIN 10 MG TABLET PO (21:19)
[2021-09-26] MEDS: Ondansetron 4 MG/2 ML Vial IV (21:38)
[2021-09-27] VITALS (25 sets, daily range): BP systolic 89–137; BP diastolic 34–79; PULSE 79–108; RESP 12–30; TEMP 36.6–37.4; O2SAT 94–100
[2021-09-27] MEDS: Acetaminophen 325 MG Tablet 650 MG PO ×3 (03:40→20:15)
--- NOTE | 2021-09-27 05:48 | PN.CC_ITS ---
Assessment & Plan Assessment/Plan (1) Acute kidney injury: PLAN: RECOMMENDATIONS: 1. Wean supplemental oxygen to maintain saturations at or above 90%. 2. Continue to wean stress dose steroids. Transition to once daily dosing today. 3. Continue to monitor the patient clinically off of antimicrobials. 4. Continue nocturnal AVAPS therapy. 5. Dietary advancement per speech therapy. 6. Encourage incentive spirometer use and mobilize patient as tolerated. IMPRESSIONS: 1. Septic versus hypovolemic shock The patient presented to the hospital with a constellation of symptoms including abdominal pain and diarrhea. She developed persistent tachypnea and had an elevated white blood cell count with bandemia concerning for sepsis due to possible infectious colitis or cystitis with acute sepsis related organ dysfunction as manifested by fluid refractory hypotension, acute kidney injury and altered mentation. The patient did ultimately have to be placed on vasopressor support due to her fluid refractory hypotension. She was also started on empiric broad-spectrum antimicrobials. However, subsequent infectious work-up was unrevealing. The patient improved from a hemodynamic status with additional volume resuscitation and stress dose steroids. Therefore, it seems most plausible that the patient's presentation was likely t he consequence of viral gastroenteritis leading to intravascular volume depletion. No other sources of infection were ever identified. Accordingly, I am going to discontinue the patient's antimicrobials and monitor her clinically. Echocardiogram was largely unrevealing with improvement in her ejection fraction when compared to previous. 2. Acute kidney injury Resolved. Most likely prerenal in etiology and related to intravascular volume depletion in the setting of GI losses. Creatinine has returned back to baseline. 3. Metabolic encephalopathy Improving. I do follow the patient in the pulmonary medicine clinic and she was clearly altered as compared to her baseline. I do suspect this is secondary to underlying metabolic derangements in the setting of #1. Continue supportive measures as noted above. Avoid sedating medications. 4. Abdominal pain/diarrhea Possibly due to self-limited viral gastroenteritis. No further diarrhea has been noted following transfer to ICU. C. difficile PCR was negative. Enteric pathogen panel was negative. 5. History of COPD/chronic hypoxemic respiratory failure/obstructive sleep apnea The patient has a known history of obstructive lung disease, for which I would recommend that she be maintained on scheduled bronchodilators and inhaled corticosteroid. The patient will be maintained on AVAPS therapy in lieu of her home astral noninvasive ventilator. This note was generated with [employer] software. It may contain incorrect words, spelling, and punctuation that were not noted in checking the note before signing. Subjective Subjective The patient was seen and examined at the bedside this morning. Events from the last 24 hours have been reviewed. The patient is currently afebrile, hemodynamically stable and maintaining appropriate oxygen saturations on 2 L/min via nasal cannula. She is currently documented to be overall net +7.3 L for the hospitalization. She continues to tolerate AVAPS therapy overnight. She still remains intermittently confused and disoriented. Speech therapy did advance her diet yesterday. Objective Data Objective Data The patient's most recent lab work, culture data and imaging studies have all been personally reviewed. Surface echocardiogram demonstrated normal LV size with segmental systolic dysfunction and an ejection fraction of 65%. Right ventricular systolic pressure was estimated to be 43 mmHg. Covid rapid antigen testing was negative. Blood and urine cultures have not demonstrated any growth to date. Covid PCR was negative. Stool enteric panel was negative. Vital Signs: Vital Signs Temp Pulse Resp BP Pulse Ox 98.9 F 104 H 22 H 124/67 H 100 09/27/21 05:00 09/27/21 05:00 09/27/21 05:00 09/27/21 05:00 09/27/21 05:00 Oxygen Flow Rate (L/min) 2 Oxygen Delivery Method Nasal Cannula Weight: 75.4 kg Body Mass Index (BMI) 26.4 Intake & Output: Intake and Output for Last 24 Hours 09/25/21 09/26/21 09/27/21 23:59 23:59 23:59 Intake Total 3729.46 / 3729.46 1972. / 1971. Output Total 1125 / 1125 1789 / 1989 200 / 200 Balance 2604.46 / 2604.46 182.00 / -18.00 -200 / -200 Lab / Micro Data Attestation: I reviewed the patient's lab results. Result Diagrams: 09/27/21 06:15 09/27/21 06:15 Labs: Laboratory Results - last 24 hr 09/26/21 03:30: Diff Path Review Reviewed Micro: Microbiology 09/23/21 23:30 Stool Enteric Bacteriology - Final 09/23/21 23:30 Stool C. difficile DNA Amplification - Final 09/23/21 01:54 Urine, Clean Catch Urine Culture - Final Mixed Gram Positive Organisms 09/22/21 23:55 Blood Culture (Wb) - Anticubital Right Blood Culture - Preliminary No growth in 48 hours. 09/22/21 23:55 Blood Culture (Wb) - Left Forearm Blood Culture - Preliminary No growth in 48 hours. 09/23/21 10:30 Nasal Secretion SARS-CoV-2 Antigen (Rapid) - Final Physical Exam Const alert and no apparent distress General Appearance: cooperative Orientation / Consciousness: awake, confused and disoriented HEENT normocephalic and head/scalp atraumatic Eyes PERRL, EOMs intact bilaterally and conjunctivae normal Neck supple General: trachea midline and CVC in place Chest inspection of chest normal Resp Auscultation: diminished lung sounds; Negative for rales, rhonchi or wheezes Cardio regular rate and regular rhythm GI normal to inspection, nondistended, normoactive bowel sounds Auscultation: hypoactive bowel sounds Extremity no clubbing, cyanosis or edema Skin no rashes or lesions noted Neuro moves all extremities and no focal motor deficits Psych Mood & Affect: flat affect Charges/Coding Visit Charges Inpatient E&M: 50107 Subs Hosp L2
[2021-09-27] MEDS: Heparin Injection (Vial) 5,000 UNIT/ML VIAL 5000 UNIT SC ×3 (06:19→22:25)
[2021-09-27 06:27] LABS: Absolute Lymphocyte Count 0.96 X10^3/uL (0.83-4.51); Absolute Neutrophil Count 10.3 X10^3/uL (2.0-7.7); Basophil# 0.02 X10^3/uL; Basophil% 0.2 % (0-1); Hemoglobin 9.1 g/dL (12.0-15.0); Lymphocyte # 0.96 X10^3/ul (0.83-4.51); Lymphocyte % 7.3 % (19-41); Mean Corp Hgb Conc 32.5 g/dL (32-36); Mean Corpuscular Hgb 30.4 pg (27.0-32.0); Mean Corpuscular Volume 93.6 fL (81-99); Mean Platelet Vol. 10.5 fl (6.2-12.0); Monocyte# 1.63 X10^3/uL; Monocyte% 12.4 % (0-10); NRBC Flagged by Analyzer 0 % (0-5); Neutrophil # 10.33 X10^3/uL (2.7-7.7); Neutrophil % 78.4 % (47-70); POSITIVE DIFFERENTIAL YES; POSITIVE MORPHOLOGY YES; Platelet Count 145 K/mm3 (150-450); RBC Distribution Width CV 14.8 % (11.6-14.6); Red Blood Count 2.99 M/mm3 (4.2-5.4); White Blood Count 13.2 K/mm3 (4.4-11.0)
[2021-09-27 06:32] LABS: Differential Indicated SCAN CRITERIA MET
[2021-09-27 06:50] LABS: ALB/GLOB Ratio 0.6 RATIO (0.9-2.4); AST(SGOT) 13 U/L (15-37); Alanine Aminotransfer ALT/SGPT 22 U/L (13-56); Albumin, Serum 1.9 g/dL (3.2-5.0); Alkaline Phosphatase 107 U/L (45-117); Anion Gap 2 (5-15); BUN 23 mg/dL (7-18); BUN/Creat Ratio 27.8 RATIO (10-20); Calcium,Total 8.5 mg/dL (8.5-10.1); Chloride 115 mmol/L (98-107); Creatinine, Serum 0.83 mg/dL (0.55-1.02); EST Glomerular Filtration Rate 73 mL/min (>60); Est Glom Filt Rate - Afr Amer 88 mL/min (>60); Estimated Creatinine Clearance 57.57 ml/min; Globulin 3.1 g/dL (2.2-4.2); Glucose 129 mg/dL (74-106); Potassium 3.7 mmol/L (3.5-5.1); Sodium Level 145 mmol/L (136-145)
[2021-09-27 06:54] LABS: Differential Comment SCANNED
[2021-09-27] MEDS: Ipratropium/Albuterol Sulfate 3 ML AMPUL.NEB INHALATION ×3 (07:48→19:19)
[2021-09-27] MEDS: Budesonide Respules 0.5 MG/2 ML AMPUL.NEB. INHALATION ×2 (07:48→19:19)
--- NOTE | 2021-09-27 09:36 | PN.HOSP_ITS ---
Subjective Subjective Patient seen and examined. She remained alert but had episodic confusion, and said she didnt even know why she was in the hospital. She denied any shortness of breath, coughing, chest pain, palpitations, dizziness, nausea or vomiting. Review of systems is otherwiwse negative. She has remained tachypneic and tachycardic. Objective Data Objective Data Vital Signs: Vital Signs Temp Pulse Resp BP Pulse Ox 98.7 F 108 H 30 H 137/64 H 100 09/27/21 08:00 09/27/21 08:00 09/27/21 08:00 09/27/21 08:00 09/27/21 08:00 Oxygen Flow Rate (L/min) 2 Oxygen Delivery Method Nasal Cannula Weight: 166 lb 3.657 oz Body Mass Index (BMI) 26.4 Intake & Output: Intake and Output for Last 24 Hours 09/25/21 09/26/21 09/27/21 23:59 23:59 23:59 Intake Total 3729.46 / 3729.46 1972.00 / 1972.00 Output Total 1125 / 1125 1789 / 1989 450 / 450 Balance 2604.46 / 2604.46 182.00 / -18.00 -450 / -450 Lab / Micro Data Result Diagrams: 09/27/21 06:15 09/27/21 06:15 Labs: Laboratory Results - last 24 hr 09/26/21 03:30: Diff Path Review Reviewed 09/27/21 06:15: WBC 13.2 H, RBC 2.99 L, Hgb 9.1 L, Hct 28.0 L, MCV 93.6, MCH 30.4, MCHC 32.5, RDW Std Deviation 51.0 H, RDW Coeff of Deonte 14.8 H, Plt Count 145 L, MPV 10.5, Immature Gran % (Auto) 1.700 H, Neut % (Auto) 78.4 H, Lymph % (Auto) 7.3 L, [place] % (Auto) 12.4 H, Eos % (Auto) 0.0, Baso % (Auto) 0.2, Absolute Neuts (auto) 10.3 H, Absolute Lymphs (auto) 0.96, Nucleated RBC % 0, Differential Comment SCANNED, Diff Path Review November09/27/21 06:15: Sodium 145, Potassium 3.7, Chloride 115 H, Carbon Dioxide 28.0, Anion Gap 2 L, BUN 23 H, Creatinine 0.83, Estim Creat Clear Calc 57.57, Est GFR (MDRD) Af Amer 88, Est GFR (MDRD) Non-Af 73, BUN/Creatinine Ratio 27.8 H, Glucose 129 H, Calcium 8.5, Total Bilirubin 0.30, AST 13 L, ALT 22, Alkaline Phosphatase 107, Total Protein 5.0 L, Albumin 1.9 L, Globulin 3.1, Albumin/Globulin Ratio 0.6 L Micro: Microbiology 09/23/21 23:30 Stool Enteric Bacteriology - Final 09/23/21 23:30 Stool C. difficile DNA Amplification - Final 09/23/21 01:54 Urine, Clean Catch Urine Culture - Final Mixed Gram Positive Organisms 09/22/21 23:55 Blood Culture (Wb) - Anticubital Right Blood Culture - Preliminary No growth in 48 hours. 09/22/21 23:55 Blood Culture (Wb) - Left Forearm Blood Culture - Preliminary No growth in 48 hours. 09/23/21 10:30 Nasal Secretion SARS-CoV-2 Antigen (Rapid) - Final Physical Exam Const alert General Appearance: cooperative Orientation / Consciousness: disoriented and lethargic Exam Limitations: no limitations Nutritional Appearance: overweight HEENT normocephalic, head/scalp atraumatic and moist oral mucous membranes Head and Scalp: normocephalic Eyes PERRL, EOMs intact bilaterally, conjunctivae normal and no scleral icterus Neck no lymphadenopathy and supple General: trachea midline Resp normal air movement Resp Narrative: Tachypneic, mildly diminished breath sounds bibasilarly. No wheezes or crackles. on 2L of oxygen by nasal canula Cardio regular rhythm, S1 normal heart sound, S2 normal heart sound, no murmurs and peripheral pulses 2+ throughout Cardio Narrative: Tachycardic. GI normal to inspection, nondistended, normoactive bowel sounds, soft to palpation, non-tender and non-distended GI Narrative: Obese abdomen, mild generalized tenderness. No guarding or rebound tenderness. Auscultation: hypoactive bowel sounds Palpation: firm Extremity normal to inspection, full ROM, normal capillary refill and no clubbing, cyanosis or edema General Extremity: no tenderness to palpation of joints or extremities Peripheral Pulses: Yes pulses 2+ throughout Skin no rashes or lesions noted General Skin Exam: no breakdown and turgor normal Lesions: no lesions Rashes: no rashes Neuro CN's II-XII intact bilaterally, moves all extremities, no focal motor deficits and no sensory deficits noted Neuro Narrative: patient lethargic Sensorium / Orientation: awake and alert Speech: speech normal Motor Exam: general weakness Psych thought process normal and cooperative Psych Narrative: flat affect Appearance: appropriate Assessment & Plan Assessment/Plan (1) Acute kidney injury: (2) Shock: PLAN: #Shock, most likely septic shock vs hypovolemic shock * now off vasopressin and levophed as well * blood cultures negative so far. * C diff screen negative * urine culture growing mixed gram positive organisms * IV vancomycin and zosyn discontinued * #Acute hypoxic and hypercapnic respiratory failure due to COPD and TIO * CTA of the chest was negative for PE and showed mild degree of emphysematous changes more prominent in upper lobes and small bilateral pleral effusion with bibasilar atelectasis and/or infiltrates * she does have a history of COPD and TIO * now off BIPAP, on 2L of oxygen #Hypokalemia: resolved #GUME * resolved. Cr is 1. #Diarrhea: l resolved. C Diff and enteric panel negative #Hypertension; BP meds on hold due to septic shock, which has resolved #Acute metabolic encephalopathy * resolved. * #Depression: on escitalopram DVT prophylaxis: lovenox Disposition: transfer to PCU once medically stable Charges/Coding Visit Charges Inpatient E&M: 78012 Subs Hosp L2
[2021-09-27] MEDS: DULoxetine Hcl 60 MG Capsule PO (10:33)
[2021-09-27] MEDS: Folic Acid 1 MG Tablet PO (10:33)
[2021-09-27] MEDS: Potassium Chloride Oral Tablet 20 MEQ PO (10:33)
[2021-09-27] MEDS: Hydrocortisone Sod Succinate 100 MG/2 ML Vial 50 MG IV (10:34)
[2021-09-27] MEDS: Escitalopram Oxalate 10 MG Tablet PO (10:34)
[2021-09-27] MEDS: Pantoprazole Sodium 40 MG Tablet PO (10:34)
[2021-09-27] MEDS: Cholecalciferol (VIT D3) 25 MCG TABLET (1,000 UNITS) PO (10:34)
[2021-09-27] MEDS: Pramipexole Di-HCl 0.25 MG Tablet PO (22:25)
[2021-09-27] MEDS: Ensure Clear 120 ML Liquid PO (22:25)
[2021-09-27] MEDS: MELATONIN 10 MG TABLET PO (22:25)
[2021-09-28] VITALS (17 sets, daily range): BP systolic 117–149; BP diastolic 58–76; PULSE 89–114; RESP 12–28; TEMP 36.6; O2SAT 94–98
[2021-09-28] MEDS: Heparin Injection (Vial) 5,000 UNIT/ML VIAL 5000 UNIT SC ×3 (06:17→22:16)
[2021-09-28 06:42] LABS: Absolute Lymphocyte Count 1.64 X10^3/uL (0.83-4.51); Absolute Neutrophil Count 8.9 X10^3/uL (2.0-7.7); Basophil# 0.04 X10^3/uL; Basophil% 0.3 % (0-1); Eosinophil# 0.04 X10^3/uL; Eosinophils% 0.3 % (0-5); Hemoglobin 9.1 g/dL (12.0-15.0); Lymphocyte # 1.64 X10^3/ul (0.83-4.51); Lymphocyte % 13.4 % (19-41); Mean Corp Hgb Conc 33.7 g/dL (32-36); Mean Corpuscular Hgb 30.5 pg (27.0-32.0); Mean Corpuscular Volume 90.6 fL (81-99); Mean Platelet Vol. 10.2 fl (6.2-12.0); Monocyte# 1.19 X10^3/uL; Monocyte% 9.7 % (0-10); NRBC Flagged by Analyzer 0 % (0-5); Neutrophil # 8.86 X10^3/uL (2.7-7.7); Neutrophil % 72.5 % (47-70); Platelet Count 139 K/mm3 (150-450); RBC Distribution Width CV 14.9 % (11.6-14.6); RBC Distribution Width SD 49.7 fl (35.1-43.9); Red Blood Count 2.98 M/mm3 (4.2-5.4); White Blood Count 12.2 K/mm3 (4.4-11.0)
[2021-09-28 07:05] LABS: ALB/GLOB Ratio 0.6 RATIO (0.9-2.4); AST(SGOT) 13 U/L (15-37); Alanine Aminotransfer ALT/SGPT 19 U/L (13-56); Albumin, Serum 1.9 g/dL (3.2-5.0); Alkaline Phosphatase 91 U/L (45-117); Anion Gap 0 (5-15); BUN 19 mg/dL (7-18); Calcium,Total 8.7 mg/dL (8.5-10.1); Chloride 113 mmol/L (98-107); Creatinine, Serum 0.73 mg/dL (0.55-1.02); EST Glomerular Filtration Rate 84 mL/min (>60); Est Glom Filt Rate - Afr Amer 102 mL/min (>60); Estimated Creatinine Clearance 47.79 ml/min; Glucose 94 mg/dL (74-106); Potassium 3.4 mmol/L (3.5-5.1); Protein, Total 4.9 g/dL (6.4-8.2); Sodium Level 143 mmol/L (136-145)
[2021-09-28] MEDS: Budesonide Respules 0.5 MG/2 ML AMPUL.NEB. INHALATION ×2 (07:20→19:37)
[2021-09-28] MEDS: Ipratropium/Albuterol Sulfate 3 ML AMPUL.NEB INHALATION ×2 (07:20→19:37)
--- NOTE | 2021-09-28 08:48 | PN.CC_ITS ---
Assessment & Plan Assessment/Plan (1) Acute kidney injury: PLAN: RECOMMENDATIONS: 1. Wean supplemental oxygen to maintain saturations at or above 90%. 2. Continue to wean stress dose steroids. Likely discontinue tomorrow 3. Continue to monitor the patient clinically off of antimicrobials. 4. Continue nocturnal AVAPS therapy. 5. Dietary advancement per speech therapy. 6. Encourage incentive spirometer use and mobilize patient as tolerated. IMPRESSIONS: 1. Septic versus hypovolemic shock The patient presented to the hospital with a constellation of symptoms including abdominal pain and diarrhea. She developed persistent tachypnea and had an elevated white blood cell count with bandemia concerning for sepsis due to possible infectious colitis or cystitis with acute sepsis related organ dysfunction as manifested by fluid refractory hypotension, acute kidney injury and altered mentation. The patient did ultimately have to be placed on vasopressor support due to her fluid refractory hypotension. The patient has responded to fluid resuscitation and stress dose steroids. No pressures have been required. Patient is off of antimicrobials and has maintained without a fever. Patient does have a leukocytosis, but this may be secondary to steroid therapy. 2. Acute kidney injury Resolved. Most likely prerenal in etiology and related to intravascular volume depletion in the setting of GI losses. Creatinine has returned back to baseline. 3. Metabolic encephalopathy Improving. I have seen the patient numerous times as an inpatient and she was clearly altered as compared to her baseline. I do suspect this is secondary to underlying metabolic derangements in the setting of #1. Continue supportive measures as noted above. Avoid sedating medications. 4. Abdominal pain/diarrhea Possibly due to self-limited viral gastroenteritis. No further diarrhea has been noted following transfer to ICU. C. difficile PCR was negative. Enteric pathogen panel was negative. 5. History of COPD/chronic hypoxemic respiratory failure/obstructive sleep apnea The patient has a known history of obstructive lung disease, for which I would recommend that she be maintained on scheduled bronchodilators and inhaled corticosteroid. The patient will be maintained on AVAPS therapy in lieu of her home astral noninvasive ventilator. Subjective Subjective Patient did okay overnight. Patient appears to be much more appropriate. Patient describes her thinking is foggy but is able to say that she is at [facility]. Patient is not reporting any chest pain or shortness of breath at rest. Objective Data Objective Data Vital Signs: Vital Signs Temp Pulse Resp BP Pulse Ox 36.6 C 93 20 H 125/58 H 98 09/28/21 04:12 09/28/21 07:10 09/28/21 07:10 09/28/21 04:12 09/28/21 07:52 Oxygen Flow Rate (L/min) 2 Oxygen Delivery Method Nasal Cannula Weight: 70.7 kg Body Mass Index (BMI) 26.4 Intake & Output: Intake and Output for Last 24 Hours 09/26/21 09/27/21 09/28/21 23:59 23:59 23:59 Intake Total 1972.00 / 1972.00 410 / 410 100 / 100 Output Total 1789 1300 / 1300 200 / 200 Balance 182.00 / -18.00 -890 / -890 -100 / -100 Lab / Micro Data Result Diagrams: 09/28/21 06:32 09/28/21 06:32 Labs: Laboratory Results - last 24 hr 09/28/21 06:32: WBC 12.2 H, RBC 2.98 L, Hgb 9.1 L, Hct 27.0 L, MCV 90.6, MCH 30.5, MCHC 33.7, RDW Std Deviation 49.7 H, RDW Coeff of [place]onte 14.9 H, Plt Count 139 L, MPV 10.2, Immature Gran % (Auto) 3.800 H, Neut % (Auto) 72.5 H, Lymph % (Auto) 13.4 L, [place] % (Auto) 9.7, Eos % (Auto) 0.3, Baso % (Auto) 0.3, Absolute Neuts (auto) 8.9 H, Absolute Lymphs (auto) 1.64, Nucleated RBC % 0 09/28/21 06:32: Sodium 143, Potassium 3.4 L, Chloride 113 H, Carbon Dioxide 30.0, Anion Gap 0 L, BUN 19 H, Creatinine 0.73, Estim Creat Clear Calc 47.79, Est GFR (MDRD) Af Amer 102, Est GFR (MDRD) Non-Af 84, BUN/Creatinine Ratio 26.0 H, Glucose 94, Calcium 8.7, Total Bilirubin 0.50, AST 13 L, ALT 19, Alkaline Phosphatase 91, Total Protein 4.9 L, Albumin 1.9 L, Globulin 3.0, Album in/Globulin Ratio 0.6 L Micro: Microbiology 09/22/21 23:55 Blood Culture (Wb) - Anticubital Right Blood Culture - Final No growth in 5 days. 09/22/21 23:55 Blood Culture (Wb) - Left Forearm Blood Culture - Final No growth in 5 days. 09/23/21 23:30 Stool Enteric Bacteriology - Final 09/23/21 23:30 Stool C. difficile DNA Amplification - Final 09/23/21 01:54 Urine, Clean Catch Urine Culture - Final Mixed Gram Positive Organisms 09/23/21 10:30 Nasal Secretion SARS-CoV-2 Antigen (Rapid) - Final Physical Exam Const alert, oriented x3 and no apparent distress General Appearance: cooperative, disheveled and appears older than stated age Orientation / Consciousness: awake HEENT normocephalic and head/scalp atraumatic Eyes PERRL, EOMs intact bilaterally and conjunctivae normal Neck supple General: trachea midline and CVC in place Chest inspection of chest normal Resp Auscultation: diminished lung sounds; Negative for rales, rhonchi or wheezes Cardio regular rate and regular rhythm GI normal to inspection, nondistended, normoactive bowel sounds Auscultation: hypoactive bowel sounds Extremity no clubbing, cyanosis or edema Skin no rashes or lesions noted Neuro moves all extremities and no focal motor deficits Psych Mood & Affect: flat affect Charges/Coding Visit Charges Inpatient E&M: 93035 Subs Hosp L2
[2021-09-28] MEDS: Folic Acid 1 MG Tablet PO (09:48)
[2021-09-28] MEDS: Potassium Chloride Oral Tablet 20 MEQ PO (09:48)
[2021-09-28] MEDS: Potassium Chloride Oral Tablet 20 MEQ 40 MEQ PO (09:49)
[2021-09-28] MEDS: 0.9% Saline Lock 10 ML Syringe IV (11:06)
[2021-09-28] MEDS: Hydrocortisone Sod Succinate 100 MG/2 ML Vial 50 MG IV (11:06)
[2021-09-28] MEDS: Pantoprazole Sodium 40 MG Tablet PO (11:08)
[2021-09-28] MEDS: DULoxetine Hcl 60 MG Capsule PO (11:08)
[2021-09-28] MEDS: Acetaminophen 325 MG Tablet 650 MG PO (11:08)
[2021-09-28] MEDS: Escitalopram Oxalate 10 MG Tablet PO (11:08)
[2021-09-28] MEDS: Cholecalciferol (VIT D3) 25 MCG TABLET (1,000 UNITS) PO (11:09)
--- NOTE | 2021-09-28 11:22 | PN.HOSP_ITS ---
Subjective Subjective Patient seen and examined. She had no active complaints but still complained of episodic confusion. She had an uneventful night and review of systems is otherwise negative. She is still tachycardic today. Objective Data Objective Data Vital Signs: Vital Signs Temp Pulse Resp BP Pulse Ox 98 F 108 H 20 H 130/60 H 98 09/28/21 10:10 09/28/21 10:10 09/28/21 10:10 09/28/21 10:10 09/28/21 10:10 Oxygen Flow Rate (L/min) 2 Oxygen Delivery Method Nasal Cannula Weight: 155 lb 13.869 oz Body Mass Index (BMI) 26.4 Intake & Output: Intake and Output for Last 24 Hours 09/26/21 09/27/21 09/28/21 23:59 23:59 23:59 Intake Total 1972.00 / 1971.00 410 / 410 100 / 100 Output Total 1789 / 1989 1300 / 1300 450 / 450 Balance 182.00 / -18.00 -890 / -890 -350 / -350 Lab / Micro Data Result Diagrams: 09/28/21 06:32 09/28/21 06:32 Labs: Laboratory Results - last 24 hr 09/28/21 06:32: WBC 12.2 H, RBC 2.98 L, Hgb 9.1 L, Hct 27.0 L, MCV 90.6, MCH 30.5, MCHC 33.7, RDW Std Deviation 49.7 H, RDW Coeff of [place]onte 14.9 H, Plt Count 139 L, MPV 10.2, Immature Gran % (Auto) 3.800 H, Neut % (Auto) 72.5 H, Lymph % (Auto) 13.4 L, [place] % (Auto) 9.7, Eos % (Auto) 0.3, Baso % (Auto) 0.3, Absolute Neuts (auto) 8.9 H, Absolute Lymphs (auto) 1.64, Nucleated RBC % 0 09/28/21 06:32: Sodium 143, Potassium 3.4 L, Chloride 113 H, Carbon Dioxide 30.0, Anion Gap 0 L, BUN 19 H, Creatinine 0.73, Estim Creat Clear Calc 47.79, Est GFR (MDRD) Af Amer 102, Est GFR (MDRD) Non-Af 84, BUN/Creatinine Ratio 26.0 H, Glucose 94, Calcium 8.7, Total Bilirubin 0.50, AST 13 L, ALT 19, Alkaline Phosphatase 91, Total Protein 4.9 L, Albumin 1.9 L, Globulin 3.0, Albumin/Globulin Ratio 0.6 L Micro: Microbiology 09/22/21 23:55 Blood Culture (Wb) - Anticubital Right Blood Culture - Final No growth in 5 days. 09/22/21 23:55 Blood Culture (Wb) - Left Forearm Blood Culture - Final No growth in 5 days. 09/23/21 23:30 Stool Enteric Bacteriology - Final 09/23/21 23:30 Stool C. difficile DNA Amplification - Final 09/23/21 01:54 Urine, Clean Catch Urine Culture - Final Mixed Gram Positive Organisms 09/23/21 10:30 Nasal Secretion SARS-CoV-2 Antigen (Rapid) - Final Physical Exam Const alert Constitutional Narrative: mild lethargy General Appearance: cooperative Orientation / Consciousness: disoriented and lethargic Exam Limitations: no limitations Nutritional Appearance: overweight HEENT normocephalic, head/scalp atraumatic and moist oral mucous membranes Head and Scalp: normocephalic Eyes PERRL, EOMs intact bilaterally, conjunctivae normal and no scleral icterus Neck no lymphadenopathy and supple General: trachea midline Resp normal air movement Resp Narrative: Tachypneic, mildly diminished breath sounds bibasilarly. No wheezes or crackles. on 2L of oxygen by nasal canula Cardio regular rhythm, S1 normal heart sound, S2 normal heart sound, no murmurs and peripheral pulses 2+ throughout Cardio Narrative: Tachycardic. GI normal to inspection, nondistended, normoactive bowel sounds, soft to palpation, non-tender and non-distended GI Narrative: Obese abdomen, mild generalized tenderness. No guarding or rebound tenderness. Auscultation: hypoactive bowel sounds Palpation: firm Extremity normal to inspection, full ROM, normal capillary refill and no clubbing, cyanosis or edema General Extremity: no tenderness to palpation of joints or extremities Peripheral Pulses: Yes pulses 2+ throughout Skin no rashes or lesions noted General Skin Exam: no breakdown and turgor normal Lesions: no lesions Rashes: no rashes Neuro CN's II-XII intact bilaterally, moves all extremities, no focal motor deficits and no sensory deficits noted Neuro Narrative: patient lethargic Sensorium / Orientation: awake and alert Speech: speech normal Motor Exam: general weakness Psych thought process normal and cooperative Psych Narrative: flat affect Appearance: appropriate Assessment & Plan Assessment/Plan (1) Acute kidney injury: (2) Shock: PLAN: #Shock, most likely septic shock vs hypovolemic shock * resolved. * blood cultures negative so far. * C diff screen negative * urine culture growing mixed gram positive organisms * IV vancomycin and zosyn discontinued * #Acute hypoxic and hypercapnic respiratory failure due to COPD and TIO * CTA of the chest was negative for PE and showed mild degree of emphysematous changes more prominent in upper lobes and small bilateral pleral effusion with bibasilar atelectasis and/or infiltrates * she does have a history of COPD and TIO * now off BIPAP, on 2L of oxygen #Hypokalemia: K is 3.4 today. Will replace and trend. #GUME * resolved. #Diarrhea: resolved. C Diff and enteric panel negative #Hypertension; BP meds on hold due to septic shock, which has resolved #Acute metabolic encephalopathy * resolved. * #Depression: on escitalopram DVT prophylaxis: lovenox Disposition:will benefit from placement. PT/OT on board. Fall precautions. Charges/Coding Visit Charges Inpatient E&M: 89311 Subs Hosp L2
[2021-09-28] MEDS: Albuterol 2.5 MG/3 ML VIAL.NEB. INHALATION (11:28)
[2021-09-28] MEDS: HYDROcodone Bitartrate/Apap 5/325 Tablet PO ×2 (13:48→23:18)
[2021-09-28] MEDS: Pramipexole Di-HCl 0.25 MG Tablet PO (22:13)
[2021-09-28] MEDS: MELATONIN 10 MG TABLET PO (22:14)
--- NOTE | 2021-09-28 23:30 | NURSING ---
Pt refused to wear bipap. Will have respiratory therapy try later.
[2021-09-29] VITALS (11 sets, daily range): BP systolic 118–125; BP diastolic 56–68; PULSE 87–109; RESP 18–20; TEMP 36.4–36.7; O2SAT 92–99
[2021-09-29] MEDS: Heparin Injection (Vial) 5,000 UNIT/ML VIAL 5000 UNIT SC ×2 (05:30→14:16)
[2021-09-29] MEDS: HYDROcodone Bitartrate/Apap 5/325 Tablet PO ×2 (05:35→11:36)
[2021-09-29] MEDS: 0.9% Saline Lock 10 ML Syringe IV (05:35)
[2021-09-29 06:49] LABS: Absolute Lymphocyte Count 1.74 X10^3/uL (0.83-4.51); Absolute Neutrophil Count 9.5 X10^3/uL (2.0-7.7); Basophil# 0.05 X10^3/uL; Basophil% 0.4 % (0-1); Eosinophil# 0.19 X10^3/uL; Eosinophils% 1.4 % (0-5); Hematocrit 27.7 % (37-47); Lymphocyte # 1.74 X10^3/ul (0.83-4.51); Lymphocyte % 13.2 % (19-41); Mean Corp Hgb Conc 32.5 g/dL (32-36); Mean Corpuscular Hgb 29.8 pg (27.0-32.0); Mean Corpuscular Volume 91.7 fL (81-99); Monocyte# 1.18 X10^3/uL; Monocyte% 8.9 % (0-10); NRBC Flagged by Analyzer 0 % (0-5); Neutrophil # 9.51 X10^3/uL (2.7-7.7); Neutrophil % 71.9 % (47-70); Platelet Count 162 K/mm3 (150-450); RBC Distribution Width SD 50.4 fl (35.1-43.9); Red Blood Count 3.02 M/mm3 (4.2-5.4); White Blood Count 13.2 K/mm3 (4.4-11.0)
[2021-09-29] MEDS: Ipratropium/Albuterol Sulfate 3 ML AMPUL.NEB INHALATION (06:51)
[2021-09-29] MEDS: Budesonide Respules 0.5 MG/2 ML AMPUL.NEB. INHALATION (06:51)
[2021-09-29 07:17] LABS: Anion Gap 2 (5-15); BUN 16 mg/dL (7-18); BUN/Creat Ratio 25.1 RATIO (10-20); Calcium,Total 8.3 mg/dL (8.5-10.1); Chloride 113 mmol/L (98-107); Creatinine, Serum 0.64 mg/dL (0.55-1.02); EST Glomerular Filtration Rate 99 mL/min (>60); Est Glom Filt Rate - Afr Amer 120 mL/min (>60); Estimated Creatinine Clearance 47.79 ml/min; Glucose 98 mg/dL (74-106); Potassium 4.1 mmol/L (3.5-5.1); Sodium Level 145 mmol/L (136-145)
--- NOTE | 2021-09-29 08:20 | PN.CC_ITS ---
Assessment & Plan Assessment/Plan (1) Acute kidney injury: PLAN: RECOMMENDATIONS: 1. Wean supplemental oxygen to maintain saturations at or above 90%. 2. Discontinue stress dose steroids 3. Continue to monitor the patient clinically off of antimicrobials. 4. Continue nocturnal AVAPS therapy. 5. Dietary advancement per speech therapy. 6. Encourage incentive spirometer use and mobilize patient as tolerated. IMPRESSIONS: 1. Septic versus hypovolemic shock The patient presented to the hospital with a constellation of symptoms including abdominal pain and diarrhea. She developed persistent tachypnea and had an elevated white blood cell count with bandemia concerning for sepsis due to possible infectious colitis or cystitis with acute sepsis related organ dysfunction as manifested by fluid refractory hypotension, acute kidney injury and altered mentation. The patient did ultimately have to be placed on vasopres sor support due to her fluid refractory hypotension. The patient has responded to fluid resuscitation and stress dose steroids. No pressors or fluid boluses have been required. Patient is off of antimicrobials and has maintained without a fever. Patient does have a leukocytosis, but this may be secondary to steroid therapy. We will discontinue stress dose steroids 2. Acute kidney injury Resolved. Most likely prerenal in etiology and related to intravascular v olume depletion in the setting of GI losses. Creatinine has returned back to baseline. 3. Metabolic encephalopathy Improving. I have seen the patient numerous times as an inpatient and she was clearly altered as compared to her baseline. I do suspect this is secondary to underlying metabolic derangements in the setting of #1. Continue supportive measures as noted above. Avoid sedating medications. 4. Abdominal pain/diarrhea Possibly due to self-limited viral gastroenteritis. No further diarrhea has been noted following transfer to ICU. C. difficile PCR was negative. Enteric pathogen panel was negative. 5. History of COPD/chronic hypoxemic respiratory failure/obstructive sleep apnea The patient has a known history of obstructive lung disease, for which I would recommend that she be maintained on scheduled bronchodilators and inhaled corticosteroid. The patient will be maintained on AVAPS therapy in lieu of her home astral noninvasive ventilator. Walking oximetry prior to discharge. Subjective Subjective Patient did okay overnight. No acute issues were reported. Patient's blood pressure has remained stable without need for boluses. Patient has been requiring 2 L nasal cannula with sleep. Patient did not report any pain for me this morning. Objective Data Objective Data Vital Signs: Vital Signs Temp Pulse Resp BP Pulse Ox 36.7 C 89 20 H 121/56 H 99 09/29/21 03:13 09/29/21 07:30 09/29/21 06:51 09/29/21 03:13 09/29/21 06:51 Oxygen Flow Rate (L/min) 2 Oxygen Delivery Method Nasal Cannula Weight: 70.4 kg Body Mass Index (BMI) 26.4 Intake & Output: Intake and Output for Last 24 Hours 09/27/21 09/28/21 09/29/21 23:59 23:59 23:59 Intake Total 410 / 410 800 / 800 100 / 100 Output Total 1300 / 1300 1000 / 1000 225 / 225 Balance -890 / -890 -200 / -200 -125 / -125 Lab / Micro Data Result Diagrams: 09/29/21 06:36 09/29/21 06:36 Labs: Laboratory Results - last 24 hr 09/29/21 06:36: WBC 13.2 H, RBC 3.02 L, Hgb 9.0 L, Hct 27.7 L, MCV 91.7, MCH 29.8, MCHC 32.5, RDW Std Deviation 50.4 H, RDW Coeff of [place] 15.0 H, Plt Count 1 62, MPV 10.0, Immature Gran % (Auto) 4.200 H, Neut % (Auto) 71.9 H, Lymph % (Auto) 13.2 L, [place] % (Auto) 8.9, Eos % (Auto) 1.4, Baso % (Auto) 0.4, Absolute Neuts (auto) 9.5 H, Absolute Lymphs (auto) 1.74, Nucleated RBC % 0 09/29/21 06:36: Sodium 145, Potassium 4.1, Chloride 113 H, Carbon Dioxide 30.0, Anion Gap 2 L, BUN 16, Creatinine 0.64, Estim Creat Clear Calc 47.79, Est GFR (MDRD) Af Amer 120, Est GFR (MDRD) Non-Af 99, BUN/Creatinine Ratio 25.1 H, Glucose 98, Calcium 8.3 L Micro: Microbiology 09/22/21 23:55 Blood Culture (Wb) - Anticubital Right Blood Culture - Final No growth in 5 days. 09/22/21 23:55 Blood Culture (Wb) - Left Forearm Blood Culture - Final No growth in 5 days. 09/23/21 23:30 Stool Enteric Bacteriology - Final 09/23/21 23:30 Stool C. difficile DNA Amplification - Final 09/23/21 01:54 Urine, Clean Catch Urine Culture - Final Mixed Gram Positive Organisms 09/23/21 10:30 Nasal Secretion SARS-CoV-2 Antigen (Rapid) - Final Physical Exam Const alert, oriented x3 and no apparent distress General Appearance: cooperative, disheveled and appears older than stated age Orientation / Consciousness: awake HEENT normocephalic and head/scalp atraumatic Eyes PERRL, EOMs intact bilaterally and conjunctivae normal Neck supple General: trachea midline and CVC in place Chest inspection of chest normal Resp Auscultation: diminished lung sounds; Negative for rales, rhonchi or wheezes Cardio regular rate and regular rhythm GI normal to inspection, nondistended, normoactive bowel sounds Auscultation: hypoactive bowel sounds Extremity no clubbing, cyanosis or edema Skin no rashes or lesions noted Neuro moves all extremities and no focal motor deficits Psych Mood & Affect: flat affect Charges/Coding Visit Charges Inpatient E&M: 24970 Subs Hosp L2
[2021-09-29] MEDS: Folic Acid 1 MG Tablet PO (08:31)
[2021-09-29] MEDS: Cholecalciferol (VIT D3) 25 MCG TABLET (1,000 UNITS) PO (08:32)
[2021-09-29] MEDS: Escitalopram Oxalate 10 MG Tablet PO (08:32)
[2021-09-29] MEDS: Potassium Chloride Oral Tablet 20 MEQ PO (08:32)
[2021-09-29] MEDS: DULoxetine Hcl 60 MG Capsule PO (08:32)
[2021-09-29] MEDS: Pantoprazole Sodium 40 MG Tablet PO (08:32)
[2021-09-29] MEDS: Ensure Clear 120 ML Liquid PO (08:41)
[2021-09-29] MEDS: Acetaminophen 325 MG Tablet 650 MG PO (09:49)
--- NOTE | 2021-09-29 10:54 | CASEMGMT ---
Addendum entered by Carla Rhodes 09/29/21 14:07: states no need for any further equipment at home and states his brother will be coming to help assist with pt. Monie KILPATRICK CM Addendum entered by Carla Rhodes 09/29/21 12:04: Pt's home oxygen order is for 2L continuous and pt is currently on this and per Rachel ROLDAN, pt ambulated on same with no need for increased O2. Monie KILPATRICK CM Addendum entered by Carla Rhodes 09/29/21 11:21: [facility] can accept pt and do SOC for 10/01/21 but they currently do not have SW, but per Ayanna at [facility], pt is [facility] pt and they will reach out to SW at [facility] for pt. Order updated to SN, PT/OT, aide. Pt/ updated, voice understanding. Monie KILPATRICK CM Original Note: This RN CM to room to discuss d/c plan with pt/. Pt/ state they would like to go home with [facility] and would prefer [facility] as pt has had in the past. is aware of pt assist of 2 for ambulation and states he will be able to do same at home. Order placed for SN, PT/OT, aide, SW and message left for Ayanna at [facility]. Pt/ states no further concerns/needs with going home. CM to follow. Monie KILPATRICK CM
--- NOTE | 2021-09-29 11:36 | PCM.DC.SUM ---
Providers Date of Admission: 09/23/21 Date of Discharge: 09/29/21 Primary Care Physician: Dr. Maryam Pineda MD Consultations 09/23/21 09:34 Consult: Transitional Care Liaison / Pulmonary Medicine Routine Consulting Provider: Anurag Flannery Reason for Consult: Hypotension EMERGENT Consult: Yes Notified: Yes Date Notified: 09/23/21 Time Notified: 09:34 Method of Notification: phone Reason For Visit: DIARRHEA, DEHYDRATION Diagnosis Discharge Diagnosis (1) Acute kidney injury: Status: Acute Code(s): N17.9 - Acute kidney failure, unspecified Medications at Discharge Home Medications aspirin 81 mg PO DAILY 11/03/20 cholecalciferol (vitamin D3) [Vitamin D3] 25 mcg PO DAILY 11/03/20 duloxetine 60 mg PO DAILY 11/03/20 folic acid 1 mg PO DAILY 11/03/20 pantoprazole [Protonix] 40 mg PO DAILY 11/03/20 potassium chloride 20 meq PO DAILY 11/03/20 ropinirole 0.5 mg PO QHS 11/03/20 spironolactone 12.5 mg PO DAILY 11/03/20 albuterol sulfate 90 mcg/actuation aerosol inhaler 2 puff INHALATION Q4H PRN #18 g 12/23/20 fluticasone fur. 100 mcg-umeclid 62.5 mcg-vilant 25 mcg inhalat.powder 1 inh INHALATION DAILY #60 ea 12/23/20 albuterol sulfate 1.25 mg INHALATION Q4H PRN 06/15/21 escitalopram oxalate 10 mg tablet 10 mg PO DAILY 07/07/21 mecobalamin (vitamin B12) 5,000 mcg disintegrating tablet 5,000 mcg PO DAILY 07/07/21 carvedilol 12.5 mg tablet 12.5 mg PO BID #60 tab 09/10/21 hydrocodone-acetaminophen 1 tab PO Q6H PRN PRN 3 Days #10 tablet 09/21/21 Hospital Course Operations None Procedures 2-D Echocardiogram and - (Renal ultrasound) Summary of Care Provided Minutes Spent on Discharge: 42 Hospital Course: Mrs. Mayes is a 65-year-old white female who presented to the emergency department [facility] on 09/24/2021 with general malaise, weakness, abdominal pain, and diarrhea that had been ongoing for several days prior to presentation. She is followed in the pulmonary clinic as an outpatient for COPD, chronic hypoxic respiratory failure and obstructive sleep apnea. She is dependent upon oxygen at baseline at 2 L. Upon presentation the emergency department she was afebrile but was tachypneic and hypotensive. She had a markedly elevated white blood cell count at 22,000. Her chemistry profile noted a creatinine of 4.5 which is markedly elevated compared to her baseline that was 1 done the day previously. Lactate was performed and was normal at 1.4. Her urinalysis was negative for nitrites but positive for leukoesterase and had 1+ bacteria in her urine. Her toxicology screen was positive for opiates and benzodiazepines. She was initially admitted as observation but over the course of her first night in the hospital she remained hypotensive despite multiple liters of fluids and she was ultimately transferred to the intensive care unit where a right internal jugular vein central venous catheter was placed and the patient was initiated on vasopressor support. An echocardiogram was performed and showed an EF of 65% which had improved from 37% on her previous echocardiogram, moderate eccentric mitral valve insufficiency, segmental dysfunction and a right ventricular systolic pressure of 43 mmHg. She had no evidence of diastolic dysfunction at that time. The cause of her hypotension was felt to be septic versus hypovolemia. All cultures including an enteric panel were negative. Empiric antibiotics were discontinued given negative results on her cultures on 09/26/2021. She was maintained on Levophed and vasopressin and stress dose steroids were initiated and she remained on pressors until the evening of 09/25/2021. A CTA of her chest was performed and was negative for PE however showed mild degree of emphysematous changes more prominent in the upper lobes and bilateral small pleural effusions along with bibasilar atelectasis. Her GUME rapidly resolved with hydration and her diarrhea had improved with resolution on 09/26/2021. She was able to be transferred out of the ICU and maintained stability on her baseline supplemental oxygen of 2 L. Her antihypertensives were held during her hospitalization and prior to discharge we held her losartan and Aldactone for which she will need to be reevaluated in the outpatient setting but we did reinitiate her carvedilol at 12.5 mg twice daily. We recommend continued blood pressure monitoring and reinitiation of other medications when appropriate. She had some mild electrolyte disturbances while she was hospitalized and these were replaced. She remained stable off antibiotics and stress dose steroids were able to be discontinued on the day of discharge. As noted above her enteric panel was negative and we suspect that she might of had a viral gastroenteritis that was the precipitating etiology for all of her above issues. She was ambulated prior to discharge and oxygen saturations were found to be 93% on her supplemental oxygen at 2 L. That was recommended SNF placement be pursued upon discharge however patient and family were resistant to this and insisted on taking her home. They did indicate she would have 24-hour care and assistance while she was home and we did arrange for home health follow-up after discharge. She will need physical therapy, speech therapy, occupational therapy upon discharge via home health. She was discharged home in stable condition on 09/29/2021. We also discontinued her Ambien upon discharge and I would recommend not reinitiating this given her chronic hypoxia and history of CO2 narcosis. We recommend she follow-up with her primary care physician in the next 2 weeks and with pulmonology as scheduled. Discharge diagnoses: Shock-etiology unclear and appears to be septic versus hypovolemia Acute kidney injury-resolved Metabolic encephalopathy-markedly improved Abdominal pain/diarrhea-resolved COPD Chronic hypoxic respiratory failure TIO History of Takotsubo cardiomyopathy-cardiomyopathy resolved NSTEMI Hypertension Hyperlipidemia History of DVT Insomnia Chronic anemia Anxiety Depression Physical Exam Const alert, oriented x3, no apparent distress and no limitations Constitutional Narrative: Slightly overweight upper middle-aged female who appears much older than stated age sitting up in bed with at bedside, patient appears comfortable and nontoxic at this point, patient is on her baseline home oxygen of 2 L. General Appearance: cooperative, comfortable, well kempt and well developed Orientation / Consciousness: awake Nutritional Appearance: overweight HEENT normocephalic, head/scalp atraumatic, hearing grossly normal bilaterally and moist oral mucous membranes HEENT Narrative: Edentulous, no thrush, Mallampati is 2 Eyes PERRL, EOMs intact bilaterally and conjunctivae normal Eyes Narrative: Conjunctiva are slightly pale, no scleral icterus Neck no lymphadenopathy, supple and no JVD Neck Narrative: Trachea midline, no thyroid enlargement Resp normal respiratory effort, no retractions and no use of accessory muscles Resp Narrative: Diffusely diminished with few scattered end expiratory wheeze that improves with cough Auscultation: wheezes; Negative for crackles, rales or rhonchi Cardio regular rate, regular rhythm, S1 normal heart sound, S2 normal heart sound, no murmurs, no rub, no gallops, no clicks and no JVD GI normal to inspection, nondistended, normoactive bowel sounds, soft to palpation, non-tender and non-distended Extremity no clubbing, cyanosis or edema Extremity Narrative: Pedal pulses are 2+ Skin no rashes or lesions noted, no wounds, skin turgor normal and no jaundice Neuro oriented x3, CN's II-XII intact bilaterally, moves all extremities and no focal motor deficits Neuro Narrative: Generalized this Sensorium / Orientation: awake and alert Speech: speech normal Psych Psych Narrative: Affect is slightly flat but mood seems to be stable Weight / BMI Weight Weight: 70.4 kg Body Mass Index (BMI) 26.4 ABG / Lab / Microbiology Data Result Diagrams: 09/29/21 06:36 09/29/21 06:36 Laboratory: Laboratory Results - last 24 hr 09/29/21 06:36: WBC 13.2 H, RBC 3.02 L, Hgb 9.0 L, Hct 27.7 L, MCV 91.7, MCH 29.8, MCHC 32.5, RDW Std Deviation 50.4 H, RDW Coeff of Deonte 15.0 H, Plt Count 162, MPV 10.0, Immature Gran % (Auto) 4.200 H, Neut % (Auto) 71.9 H, Lymph % (Auto) 13.2 L, [place] % (Auto) 8.9, Eos % (Auto) 1.4, Baso % (Auto) 0.4, Absolute Neuts (auto) 9.5 H, Absolute Lymphs (auto) 1.74, Nucleated RBC % 0 09/29/21 06:36: Sodium 145, Potassium 4.1, Chloride 113 H, Carbon Dioxide 30.0, Anion Gap 2 L, BUN 16, Creatinine 0.64, Estim Creat Clear Calc 47.79, Est GFR (MDRD) Af Amer 120, Est GFR (MDRD) Non-Af 99, BUN/Creatinine Ratio 25.1 H, Glucose 98, Calcium 8.3 L Microbiology: Microbiology 09/22/21 23:55 Blood Culture (Wb) - Anticubital Right Blood Culture - Final No growth in 5 days. 09/22/21 23:55 Blood Culture (Wb) - Left Forearm Blood Culture - Final No growth in 5 days. 09/23/21 23:30 Stool Enteric Bacteriology - Final 09/23/21 23:30 Stool C. difficile DNA Amplification - Final 09/23/21 01:54 Urine, Clean Catch Urine Culture - Final Mixed Gram Positive Organisms 09/23/21 10:30 Nasal Secretion SARS-CoV-2 Antigen (Rapid) - Final D/C Instructions Discharge Diet: Low fat / Low cholesterol Discharge Activity: Return to Normal Activity Meaningful Use Info Meaningful Use Diagnoses (Choose all that apply): None applicable Discharge Plan Admission Admit Date/Time: 09/23/21 08:54 Primary Reason for Your Visit: Abdominal pain and diarrhea Attending Provider: Francesca Anne Primary Care Provider: Maryam Pineda Consulting Providers: Anurag Flannery Instructions Additional Instructions / Restrictions: 1. Please directly supervised this patient for all meals and assist in her feeding until she is stronger Discharge Orders/Prescriptions Prescriptions: Continued albuterol sulfate [Ventolin HFA] 90 mcg/actuation HFA aerosol inhaler 2 puff inhalation Q4H PRN (Reason: shortness of breath or wheezing) Qty: 18 RF: 6 yweejelkjji-endylhvrz-pynmbfsp 100-62.5-25 mcg blister with device 1 inh inhalation DAILY Qty: 60 RF: 3 escitalopram oxalate [Lexapro] 10 mg tablet 10 mg PO DAILY RF: 0 mecobalamin (vitamin B12) 5,000 mcg tablet,disintegrating 5,000 mcg PO DAILY RF: 0 pantoprazole [Protonix] 40 mg Tablet,Delayed Release (Dr/Ec) 40 mg PO DAILY RF: 0 ropinirole 0.5 mg Tablet 0.5 mg PO QHS RF: 0 folic acid 1 mg Tablet 1 mg PO DAILY RF: 0 aspirin 81 mg Tablet 81 mg PO DAILY RF: 0 duloxetine 60 mg Capsule,Delayed Release(Dr/Ec) 60 mg PO DAILY RF: 0 cholecalciferol (vitamin D3) [Vitamin D3] 25 mcg (1,000 unit) Tablet 25 mcg PO DAILY RF: 0 potassium chloride 20 mEq Tablet Extended Release 20 meq PO DAILY RF: 0 albuterol sulfate 1.25 mg/3 mL Solution For Nebulization 1.25 mg INHALATION Q4H PRN (Reason: Shortness Of Breath Or Wheezing) RF: 0 hydrocodone-acetaminophen 1 TABLET tablet 1 tab PO Q6H PRN PRN (Reason: Pain) 3 Days Qty: 10 RF: 0 carvedilol 12.5 mg tablet 12.5 mg PO BID Qty: 60 RF: 11 Held spironolactone 25 mg Tablet 12.5 mg PO DAILY RF: 0 Hold Instructions: Until instructed to reinitiate Discontinued zolpidem 10 mg tablet 10 mg PO QHS RF: 0 losartan 25 mg Tablet 25 mg PO DAILY Qty: 30 RF: 1 Referrals / Follow Up: Maryam Pineda MD [Primary Care Provider] - In 1 Week Anurag Flannery DO [STAFF PHYSICIAN] - Within 2 Weeks Disposition Disposition (needs filled in before D/C Order can be placed): Home Health Service Charges/Coding Visit Charges Inpatient E&M: 26350 Disch Hosp
[2021-09-30 14:00] LABS: Pathologist Review Reviewed
== END 2021-09-29 15:02 | disposition home health service (06) | DRG 682 ==
LOC: ED 09-23 02:56 → PCU 09-23 02:59 → ICU 09-23 10:26 → PCU 09-27 18:59
PROVIDERS: Internal Medicine Critical Care Medicine; Nurse Practitioner Family; Student in an Organized Health Care Education/Training Program; Admitting Provider Family Medicine; Emergency Provider Emergency Medicine; PCP Internal Medicine; Visit Provider Internal Medicine
DX: N17.9 Acute kidney failure, unspecified (principal); I21.4 Non-ST elevation (NSTEMI) myocardial infarction; G93.41 Metabolic encephalopathy; I50.22 Chronic systolic (congestive) heart failure; J96.11 Chronic respiratory failure with hypoxia; J90 Pleural effusion, not elsewhere classified; I11.0 Hypertensive heart disease with heart failure; J44.9 Chronic obstructive pulmonary disease, unspecified; A08.4 Viral intestinal infection, unspecified; E86.0 Dehydration; E78.5 Hyperlipidemia, unspecified; G47.33 Obstructive sleep apnea (adult) (pediatric); E87.6 Hypokalemia; F41.9 Anxiety disorder, unspecified; D64.9 Anemia, unspecified; F32.A Depression, unspecified; Z87.891 Personal history of nicotine dependence; Z79.82 Long term (current) use of aspirin; Z99.81 Dependence on supplemental oxygen; G47.00 Insomnia, unspecified; Z56.6 Other physical and mental strain related to work; Z86.718 Personal history of other venous thrombosis and embolism
CPT/HCPCS: 36415; 36600; 71045; 71275; 74018; 74177; 76770; 80048; 80053; 80076; 80202; 80307; 81001; 82077; 82803; 83605; 83690; 84484; 85025; 85379; 85610; 85730; 86850; 86900; 86901; 87040; 87086; 87088; 87426; 87493; 87506; 92526; 92610; 93005; 93306; 94002; 94003; 94640; 94762; 96374; 96375; 97110; 97163; 97167; 97530; 97535; 99285; J7030; J7040; J7050; P9612; Q9957; Q9967; A4216; C1751; C8929; J2405; J3490; J7799

== ENCOUNTER 2021-09-29 22:40 | Observation (INO) | payer MEDICARE, SELFPAY ==
[2021-09-29 22:41] VITALS: BP 90/52; PULSE 85; RESP 16; O2SAT 100
[2021-09-29 22:42] VITALS: BP 90/52; PULSE 90; RESP 15; TEMP 36.3; O2SAT 100; BMI 29.7
--- NOTE | 2021-09-29 23:04 | ED.VIS.FALL ---
HPI HPI - Fall History of Present Illness Chief Complaint: Fall Informant: patient and family Occured/Mechanism Occurred: Today Narrative Narrative: Patient presents after fall at home. Patient recently had an extended stay in the hospital for acute renal failure and hypotension secondary to a diarrheal illness. Patient was discharged home today with family and home health. After standing from her chair to go to bed tonight she became tangled in her oxygen tubing and fell backwards. Significant other states he had a hold of her arms and lowered her back but she did strike her left ribs against a wooden chest. She is complaining of pain to her left ribs. Family states that they were debating the with mother decision to take her home and not to be placed in a SNF for rehab as she was having more trouble getting around than they were anticipating. [facility] Medical History Alcohol abuse Anxiety Anxiety and depression Chronic anemia Chronic systolic (congestive) heart failure CO2 narcosis COPD (chronic obstructive pulmonary disease) Daytime hypersomnia Essential (primary) hypertension Fall GERD (gastroesophageal reflux disease) Head concussion Hemorrhagic cerebrovascular accident (CVA) (02/09/17) History of DVT of lower extremity (02/11/17) History of non-ST elevation myocardial infarction (NSTEMI) (02/03/17) Hypercarbia Hyperlipidemia Insomnia Ischemic cerebrovascular accident (CVA) (02/06/17) Non-ischemic cardiomyopathy Non-rheumatic mitral regurgitation TIO (obstructive sleep apnea) Respiratory insufficiency Secondary pulmonary arterial hypertension Stroke Takotsubo cardiomyopathy (06/17/21) TIA (transient ischemic attack) (10/25/19) Weakness due to old stroke Home Medications aspirin 81 mg PO DAILY 11/03/20 [History Last Taken Unknown] cholecalciferol (vitamin D3) [Vitamin D3] 25 mcg PO DAILY 11/03/20 [History Last Taken Unknown] duloxetine 60 mg PO DAILY 11/03/20 [History Last Taken Unknown] folic acid 1 mg PO DAILY 11/03/20 [History Last Taken Unknown] pantoprazole [Protonix] 40 mg PO DAILY 11/03/20 [History Last Taken Unknown] potassium chloride 20 meq PO DAILY 11/03/20 [History Last Taken Unknown] ropinirole 0.5 mg PO QHS 11/03/20 [History Last Taken Unknown] spironolactone 12.5 mg PO DAILY 11/03/20 [History Last Taken Unknown] albuterol sulfate 90 mcg/actuation aerosol inhaler 2 puff INHALATION Q4H PRN #18 g 12/23/20 [Rx Last Taken Unknown] fluticasone fur. 100 mcg-umeclid 62.5 mcg-vilant 25 mcg inhalat.powder 1 inh INHALATION DAILY #60 ea 12/23/20 [Rx Last Taken Unknown] albuterol sulfate 1.25 mg INHALATION Q4H PRN 06/15/21 [History Last Taken Unknown] escitalopram oxalate 10 mg tablet 10 mg PO DAILY 07/07/21 [History Last Taken Unknown] mecobalamin (vitamin B12) 5,000 mcg disintegrating tablet 5,000 mcg PO DAILY 07/07/21 [History Last Taken Unknown] carvedilol 12.5 mg tablet 12.5 mg PO BID #60 tab 09/10/21 [Rx Last Taken Unknown] hydrocodone-acetaminophen 1 tab PO Q6H PRN PRN 3 Days #10 tablet 09/21/21 [Rx Last Taken Unknown] Allergy/AdvReac Type Severity Reaction Status Date / Time tetanus and diphtheria Allergy Hives Verified 09/29/21 22:42 toxoids [tetanus & diphtheria toxoids] Family History Sister Cancer lung Father Cancer lung Mother Cancer lung Surgical History H/O: section History of bilateral cataract extraction History of cholecystectomy History of left heart catheterization (06/17/21) History of lumpectomy Hx of appendectomy Social History household members: none Smoking Status: Former smoker how long ago did patient quit smokin, 1pk/day second hand exposure: Yes alcohol intake: former substance use type: does not use what type of physical activity do you participate in: walking frequency: daily ROS ROS ED Constitutional Constitutional ED: Denies chills or fever(s) Eyes Eyes: Denies change in vision ENT ENT ED: Denies sore throat Cardiovascular Cardiovascular: Reports chest pain Respiratory/Chest Respiratory/Chest: Denies cough or dyspnea Gastrointestinal Gastrointestinal: Denies abdominal pain, nausea or vomiting Genitourinary Genitourinary ED: Denies dysuria Musculoskeletal Musculoskeletal: Denies back pain Integumentary Denies rash Neurologic Neurologic: Reports weakness; Denies headache(s) Allergic/Immunologic Allergic/Immunologic ED: Denies urticaria EXAM Physical Exam Const Vital Signs: 09/29/21 22:41 09/29/21 22:42 09/29/21 22:45 Temperature 97.3 F L Temperature Source Temporal Pulse Rate 85 90 Respiratory Rate 16 15 Respiratory Effort Normal Respiratory Depth Normal Respiratory Pattern Normal Blood Pressure 90/52 L 90/52 L Blood Pressure Mean 64 64 Pulse Ox 100 100 Oxygen Delivery Method Nasal Cannula Nasal Cannula Room Air Oxygen Flow Rate (L/min) 2 2 2 Positive well nourished and well developed General Appearance ED: well developed HEENT Reports normocephalic atraumatic Eyes PERRL and EOMs intact bilaterally Neck full ROM Chest Wall inspection of chest normal and palpation of chest normal Resp normal respiratory effort and clear to auscultation bilaterally Cardio regular rate and regular rhythm GI non-tender Palpation: soft Extremity normal to inspection Neuro oriented x3 Sensorium / Orientation: alert MDM MDM MDM Narrative Medical decision making narrative: Portable chest x-ray obtained. CBC and chemistry studies ordered. Lab Data Labs: Laboratory Results - last 24 hr 09/30/21 09/30/21 00:30 00:30 WBC 12.8 H RBC 3.57 L Hgb 10.7 L Hct 33.4 L MCV 93.6 MCH 30.0 MCHC 32.0 RDW Std Deviation 51.4 H RDW Coeff of Deonte 15.0 H Plt Count 115 L MPV 10.9 Immature Gran % (Auto) 4.500 H Neut % (Auto) 72.2 H Lymph % (Auto) 12.6 L [place] % (Auto) 8.4 Eos % (Auto) 2.0 Baso % (Auto) 0.3 Absolute Neuts (auto) 9.2 H Absolute Lymphs (auto) 1.61 Nucleated RBC % 0.2 Sodium 141 Potassium 4.7 Chloride 108 H Carbon Dioxide 29.0 Anion Gap 4 L BUN 16 Creatinine 0.71 Estim Creat Clear Calc 45.78 Est GFR (MDRD) Af Amer 106 Est GFR (MDRD) Non-Af 87 BUN/Creatinine Ratio 22.5 H Glucose 155 H Calcium 8.8 Radiography Diagnostic Testing: Clinical Impression(s) from Imaging Studies Chest X-Ray 09/30/21 00:00 IMPRESSION: Bibasilar platelike atelectasis. Electronically Signed: Reno Deshpande MD at 1:00 EDT , Treatment and Re-Evaluation Narrative: Chest x-ray per my interpretation reveals chronic changes with no acute injury from fall. Lab work is consistent with values from earlier today. Patient's initial blood pressure was low at 90/52, but every subsequent blood pressure has been over 100 systolic. Patient is not able to be cared for appropriately at home and is agreeable to a SNF placement for rehab. I will speak with hospitalist. Discharge Plan Triage Chief Complaint: Fall ED Provider: Jackie Figueroa Dx/Rx/DC Orders Clinical Impression: Fall, Chest wall contusion, Generalized weakness Prescriptions: No Action albuterol sulfate [Ventolin HFA] 90 mcg/actuation HFA aerosol inhaler 2 puff inhalation Q4H PRN (Reason: shortness of breath or wheezing) Qty: 18 RF: 6 vvanoaftkpx-yxbnxnmtm-jurnhkuo 100-62.5-25 mcg blister with device 1 inh inhalation DAILY Qty: 60 RF: 3 escitalopram oxalate [Lexapro] 10 mg tablet 10 mg PO DAILY RF: 0 mecobalamin (vitamin B12) 5,000 mcg tablet,disintegrating 5,000 mcg PO DAILY RF: 0 spironolactone 25 mg Tablet 12.5 mg PO DAILY RF: 0 Hold Instructions: Until instructed to reinitiate pantoprazole [Protonix] 40 mg Tablet,Delayed Release (Dr/Ec) 40 mg PO DAILY RF: 0 ropinirole 0.5 mg Tablet 0.5 mg PO QHS RF: 0 folic acid 1 mg Tablet 1 mg PO DAILY RF: 0 aspirin 81 mg Tablet 81 mg PO DAILY RF: 0 duloxetine 60 mg Capsule,Delayed Release(Dr/Ec) 60 mg PO DAILY RF: 0 cholecalciferol (vitamin D3) [Vitamin D3] 25 mcg (1,000 unit) Tablet 25 mcg PO DAILY RF: 0 potassium chloride 20 mEq Tablet Extended Release 20 meq PO DAILY RF: 0 albuterol sulfate 1.25 mg/3 mL Solution For Nebulization 1.25 mg INHALATION Q4H PRN (Reason: Shortness Of Breath Or Wheezing) RF: 0 hydrocodone-acetaminophen 1 TABLET tablet 1 tab PO Q6H PRN PRN (Reason: Pain) 3 Days Qty: 10 RF: 0 carvedilol 12.5 mg tablet 12.5 mg PO BID Qty: 60 RF: 11 Primary Care Provider: Maryam Pineda Referrals: Maryam Pineda MD [Primary Care Provider] - Disposition Disposition: Acute Care Hospital [facility]
[2021-09-30] VITALS (8 sets, daily range): BP systolic 104–134; BP diastolic 48–82; PULSE 82–97; RESP 16–20; TEMP 35.9–36.7; O2SAT 96–100; BMI 29.0
--- NOTE | 2021-09-30 | RAD_ITS ---
STUDY: X-RAY CHEST REASON FOR EXAM: Female, 65 years old. Pain after trauma TECHNIQUE: 1 view COMPARISON: 09/24/2021 FINDINGS: Cardiomediastinal silhouette is unremarkable. Costophrenic angles are sharp. Linear opacities have developed in the lung bases. Lungs are hyperinflated but otherwise clear. The trachea is midline. There is no pneumothorax. The bones are grossly intact. RAD/Chest 1 View (Portable) IMPRESSION: Bibasilar platelike atelectasis. Electronically Signed: Reno Deshpande MD at 1:00 EDT ,
[2021-09-30 00:42] LABS: Absolute Lymphocyte Count 1.61 X10^3/uL (0.83-4.51); Absolute Neutrophil Count 9.2 X10^3/uL (2.0-7.7); Basophil# 0.04 X10^3/uL; Basophil% 0.3 % (0-1); Eosinophil# 0.25 X10^3/uL; Hematocrit 33.4 % (37-47); Hemoglobin 10.7 g/dL (12.0-15.0); Lymphocyte # 1.61 X10^3/ul (0.83-4.51); Lymphocyte % 12.6 % (19-41); Mean Corpuscular Volume 93.6 fL (81-99); Mean Platelet Vol. 10.9 fl (6.2-12.0); Monocyte# 1.08 X10^3/uL; Monocyte% 8.4 % (0-10); NRBC Flagged by Analyzer 0.2 % (0-5); Neutrophil # 9.24 X10^3/uL (2.7-7.7); Neutrophil % 72.2 % (47-70); POSITIVE COUNT YES; Platelet Count 115 K/mm3 (150-450); RBC Distribution Width SD 51.4 fl (35.1-43.9); Red Blood Count 3.57 M/mm3 (4.2-5.4); White Blood Count 12.8 K/mm3 (4.4-11.0)
[2021-09-30 00:57] LABS: Differential Indicated SCAN CRITERIA MET
--- NOTE | 2021-09-30 01:04 | ED.RN ---
Daughter, Ameena, wants called if issues and can be reached at [phone]
[2021-09-30 01:12] LABS: Anion Gap 4 (5-15); BUN 16 mg/dL (7-18); BUN/Creat Ratio 22.5 RATIO (10-20); Calcium,Total 8.8 mg/dL (8.5-10.1); Chloride 108 mmol/L (98-107); Creatinine, Serum 0.71 mg/dL (0.55-1.02); EST Glomerular Filtration Rate 87 mL/min (>60); Est Glom Filt Rate - Afr Amer 106 mL/min (>60); Estimated Creatinine Clearance 45.78 ml/min; Glucose 155 mg/dL (74-106); Potassium 4.7 mmol/L (3.5-5.1); Sodium Level 141 mmol/L (136-145)
--- NOTE | 2021-09-30 01:38 | PCM.HP.STD ---
HPI - General General Date of Admission: 09/30/21 HPI Narrative MARCO MAY, is a 65 F with a significant history of anxiety and depression on Cymbalta; and COPD returning to the emergency department same day after discharge from the hospital. During patient recent hospitalization plan was to discharge patient to the SNF. However family thought they could take care of patient so patient was discharged home. Patient at home was found to be very weak. She tripped and hit her left rib on a wooden structure. Her helped break her fall. Patient's reports tremors and mental breakdown. She reports pain in the left rib that was not present at the time of examination. Reported patient was screaming at the ED and saying help me; help me. [facility] Medical History Alcohol abuse Anxiety Anxiety and depression Chronic anemia Chronic systolic (congestive) heart failure CO2 narcosis COPD (chronic obstructive pulmonary disease) Daytime hypersomnia Essential (primary) hypertension Fall GERD (gastroesophageal reflux disease) Head concussion Hemorrhagic cerebrovascular accident (CVA) (02/09/17) History of DVT of lower extremity (02/11/17) History of non-ST elevation myocardial infarction (NSTEMI) (02/03/17) Hypercarbia Hyperlipidemia Insomnia Ischemic cerebrovascular accident (CVA) (02/06/17) Non-ischemic cardiomyopathy Non-rheumatic mitral regurgitation TIO (obstructive sleep apnea) Respiratory insufficiency Secondary pulmonary arterial hypertension Stroke Takotsubo cardiomyopathy (06/17/21) TIA (transient ischemic attack) (10/25/19) Weakness due to old stroke Home Medications aspirin 81 mg PO DAILY 11/03/20 [History Last Taken Unknown] cholecalciferol (vitamin D3) [Vitamin D3] 25 mcg PO DAILY 11/03/20 [History Last Taken Unknown] duloxetine 60 mg PO DAILY 11/03/20 [History Last Taken Unknown] folic acid 1 mg PO DAILY 11/03/20 [History Last Taken Unknown] pantoprazole [Protonix] 40 mg PO DAILY 11/03/20 [History Last Taken Unknown] potassium chloride 20 meq PO DAILY 11/03/20 [History Last Taken Unknown] ropinirole 0.5 mg PO QHS 11/03/20 [History Last Taken Unknown] spironolactone 12.5 mg PO DAILY 11/03/20 [History Last Taken Unknown] albuterol sulfate 90 mcg/actuation aerosol inhaler 2 puff INHALATION Q4H PRN #18 g 12/23/20 [Rx Last Taken Unknown] fluticasone fur. 100 mcg-umeclid 62.5 mcg-vilant 25 mcg inhalat.powder 1 inh INHALATION DAILY #60 ea 12/23/20 [Rx Last Taken Unknown] albuterol sulfate 1.25 mg INHALATION Q4H PRN 06/15/21 [History Last Taken Unknown] escitalopram oxalate 10 mg tablet 10 mg PO DAILY 07/07/21 [History Last Taken Unknown] mecobalamin (vitamin B12) 5,000 mcg disintegrating tablet 5,000 mcg PO DAILY 07/07/21 [History Last Taken Unknown] carvedilol 12.5 mg tablet 12.5 mg PO BID #60 tab 09/10/21 [Rx Last Taken Unknown] hydrocodone-acetaminophen 1 tab PO Q6H PRN PRN 3 Days #10 tablet 09/21/21 [Rx Last Taken Unknown] Allergy/AdvReac Type Severity Reaction Status Date / Time tetanus and diphtheria Allergy Hives Verified 09/29/21 22:42 toxoids [tetanus & diphtheria toxoids] Family History Sister Cancer lung Father Cancer lung Mother Cancer lung Surgical History H/O: section History of bilateral cataract extraction History of cholecystectomy History of left heart catheterization (06/17/21) History of lumpectomy Hx of appendectomy Social History household members: none Smoking Status: Former smoker how long ago did patient quit smokin, 1pk/day second hand exposure: Yes alcohol intake: former substance use type: does not use what type of physical activity do you participate in: walking frequency: daily ROS ROS Narrative Pertinent positives and pertinent negatives as noted in HPI. All other systems were reviewed and are negative.. Vital Signs Vital Signs Vital Signs: 09/29/21 22:41 09/29/21 22:42 09/29/21 22:45 Temperature 97.3 F L Temperature Source Temporal Pulse Rate 85 90 Respiratory Rate 16 15 Respiratory Effort Normal Respiratory Depth Normal Respiratory Pattern Normal Blood Pressure 90/52 L 90/52 L Blood Pressure Mean 64 64 Pulse Ox 100 100 Oxygen Delivery Method Nasal Cannula Nasal Cannula Room Air Oxygen Flow Rate (L/min) 2 2 2 Weight Weight: 76.1 kg Body Mass Index (BMI) 29.7 Physical Exam Narrative Physical exam: General: Well-nourished, well-developed. Head: Normocephalic, atraumatic, no tenderness Eyes: Vision is grossly intact. EOMI ENT, no trauma, moist mucous membranes, no rhinorrhea Neck: Nontender, full range of motion, no spinal tenderness, deformities, step-off CVS: Regular rate and rhythm. S1-S2 present. No murmur, gallop or rub. Respiratory : Tender left inframammary area. Clear to auscultation bilaterally, no wheezing Abdomen: Soft, nontender, nondistended, normal bowel sounds, no masses : Deferred Back: Nontender, no CVA tenderness, no midline spinal tenderness, deformities, step-offs Extremities: Bilateral leg edema 2+. Skin: Ecchymosis on abdomen and lateral side of left breast. Normal color, no trauma, abrasions Neuro: Alert, oriented, cranial nerves II through XII grossly intact. Psychiatry: Depressed. Anxious. Results Lab / Micro Data Result Diagrams: 09/30/21 00:30 09/30/21 00:30 Labs: Laboratory Results - last 24 hr 09/30/21 00:30: WBC 12.8 H, RBC 3.57 L, Hgb 10.7 L, Hct 33.4 L, MCV 93.6, MCH 30.0, MCHC 32.0, RDW Std Deviation 51.4 H, RDW Coeff of Deonte 15.0 H, Plt Count 115 L, MPV 10.9, Immature Gran % (Auto) 4.500 H, Neut % (Auto) 72.2 H, Lymph % (Auto) 12.6 L, [place] % (Auto) 8.4, Eos % (Auto) 2.0, Baso % (Auto) 0.3, Absolute Neuts (auto) 9.2 H, Absolute Lymphs (auto) 1.61, Nucleated RBC % 0.2 09/30/21 00:30: Sodium 141, Potassium 4.7, Chloride 108 H, Carbon Dioxide 29.0, Anion Gap 4 L, BUN 16, Creatinine 0.71, Estim Creat Clear Calc 45.78, Est GFR (MDRD) Af Amer 106, Est GFR (MDRD) Non-Af 87, BUN/Creatinine Ratio 22.5 H, Glucose 155 H, Calcium 8.8 Radiology Impression Chest X-Ray 09/30/21 00:00 IMPRESSION: Bibasilar platelike atelectasis. Electronically Signed: Reno Deshpande MD at 1:00 EDT , Assessment & Plan Assessment/Plan (1) Fall: QUALIFIERS: Encounter type: initial encounter Qualified Code(s): W19.XXXA - Unspecified fall, initial encounter (2) Physical debility: PLAN: Fall/physical debility Records reviewed from previous admission: Hospitalized from 09/23/2021 to 09/29/2021. Patient was admitted with dehydration, GUME; diarrhea; metabolic encephalopathy and hypotension. Patient spent some time in the ICU on pressors. On current presentation chest x-ray was visualized and independently interpreted. I agree with radiologist interpretation of bibasilar atelectasis. Incentive spirometer ordered. CBC reviewed showed white count of 12.8; recent downtrend from recent hospitalization. Trend CBC and BMP. PT and OT to work with patient for strengthening and balance training. Case management consult for disposition. Hypertension Noted to have transient hypotension with systolic blood pressure of 90 at the ED. Subsequent blood pressures were within normal limits. We will continue home blood pressure medications of carvedilol and spironolactone with parameters. Trend blood pressures. DVT prophylaxis: SCDs ordered. Charges/Coding Visit Charges OBSV E&M: 36038 Initial observation care L2
[2021-09-30] MEDS: Acetaminophen 325 MG Tablet 650 MG PO ×3 (02:49→15:47)
[2021-09-30] MEDS: Budesonide Respules 0.5 MG/2 ML AMPUL.NEB. INHALATION ×2 (06:39→19:32)
[2021-09-30] MEDS: Ipratropium/Albuterol Sulfate 3 ML AMPUL.NEB INHALATION ×2 (06:39→19:32)
[2021-09-30 06:57] LABS: Differential Comment SCANNED; Platelet Estimate ADEQUATE (ADEQ)
[2021-09-30] MEDS: Senna/Docusate Sodium 1 Tablet 2 TABLET PO (09:42)
[2021-09-30] MEDS: Pantoprazole Sodium 40 MG Tablet PO (09:43)
[2021-09-30] MEDS: Potassium Chloride Oral Tablet 20 MEQ PO (09:43)
[2021-09-30] MEDS: Folic Acid 1 MG Tablet PO (09:43)
[2021-09-30] MEDS: Escitalopram Oxalate 10 MG Tablet PO (09:44)
[2021-09-30] MEDS: DULoxetine Hcl 60 MG Capsule PO (09:44)
[2021-09-30] MEDS: Cholecalciferol (VIT D3) 25 MCG TABLET (1,000 UNITS) PO (09:44)
[2021-09-30] MEDS: Carvedilol 12.5 MG Tablet PO (09:44)
[2021-09-30] MEDS: Spironolactone 25 MG Tablet 12.5 MG PO (09:44)
[2021-09-30] MEDS: Aspirin E.C. 81 MG Tablet PO (09:45)
--- NOTE | 2021-09-30 12:16 | CASEMGMT ---
Social Work Note SW in to speak with pt regarding SNF placement. Pt is alert and orientates x2 (person, place). Pt gave this worker permission to call her daughter Ameena to discuss discharge plans. SW placed a call to pt's daughter Ameena and introduced self and role at [facility]. SW spoke with Ameena about SNF. Ameena states preferred provider is [facility]. SW explained referral process. Ameena state understanding. Ameena states that pt has never received psychiatric services before. IBETH placed a call to [facility] and provided referral to Sammie. SW faxed referral. Plan: [facility] pending acceptance Carla Hernández [employer]K RECEIVER, POWERHOUSE ELECTRICIAN APPRENTICE
--- NOTE | 2021-09-30 14:48 | DS.PCM_ITS ---
Providers Date of Admission: 09/30/21 Date of Discharge: 09/30/21 Primary Care Physician: Dr. Maryam Pineda MD Reason For Visit: SIRS Diagnosis Discharge Diagnosis (1) Fall: Status: Acute Code(s): W19.XXXA - Unspecified fall, initial encounter Qualifiers: Encounter type: initial encounter Qualified Code(s): W19.XXXA - Unspecified fall, initial encounter (2) Physical debility: Status: Acute Code(s): R53.81 - Other malaise Medications at Discharge Home Medications aspirin 81 mg PO DAILY 11/03/20 cholecalciferol (vitamin D3) [Vitamin D3] 25 mcg PO DAILY 11/03/20 duloxetine 60 mg PO DAILY 11/03/20 folic acid 1 mg PO DAILY 11/03/20 pantoprazole [Protonix] 40 mg PO DAILY 11/03/20 potassium chloride 20 meq PO DAILY 11/03/20 ropinirole 0.5 mg PO QHS 11/03/20 spironolactone 12.5 mg PO DAILY 11/03/20 albuterol sulfate 90 mcg/actuation aerosol inhaler 2 puff INHALATION Q4H PRN #18 g 12/23/20 fluticasone fur. 100 mcg-umeclid 62.5 mcg-vilant 25 mcg inhalat.powder 1 inh INHALATION DAILY #60 ea 12/23/20 albuterol sulfate 1.25 mg INHALATION Q4H PRN 06/15/21 escitalopram oxalate 10 mg tablet 10 mg PO DAILY 07/07/21 mecobalamin (vitamin B12) 5,000 mcg disintegrating tablet 5,000 mcg PO DAILY 07/07/21 carvedilol 12.5 mg tablet 12.5 mg PO BID #60 tab 09/10/21 hydrocodone-acetaminophen 1 tab PO Q6H PRN PRN 3 Days #10 tablet 09/21/21 Hospital Course Operations None Procedures None Summary of Care Provided Minutes Spent on Discharge: 37 Hospital Course: Hospital Course: Mrs. Mayes is a 65-year-old white female who originally presented to the emergency department [facility] on 09/24/2021 with general malaise, weakness, abdominal pain, and diarrhea that had been ongoing for several days prior to presentation. She is followed in the pulmonary clinic as an outpatient for COPD, chronic hypoxic respiratory failure and obstructive sleep apnea. She is dependent upon oxygen at baseline at 2 L. Upon presentation the emergency department she was afebrile but was tachypneic and hypotensive. She had a markedly elevated white blood cell count at 22,000. Her chemistry profile noted a creatinine of 4.5 which is markedly elevated compared to her baseline that was 1 done the day previously. Lactate was performed and was normal at 1.4. Her urinalysis was negative for nitrites but positive for leukoesterase and had 1+ bacteria in her urine. Her toxicology screen was positive for opiates and benzodiazepines. She was initially admitted as observation but over the course of her first night in the hospital she remained hypotensive despite multiple liters of fluids and she was ultimately transferred to the intensive care unit where a right internal jugular vein central venous catheter was placed and the patient was initiated on vasopressor support. An echocardiogram was performed and showed an EF of 65% which had improved from 37% on her previous echocardiogram, moderate eccentric mitral valve insufficiency, segmental dysfunction and a right ventricular systolic pressure of 43 mmHg. She had no evidence of diastolic dysfunction at that time. The cause of her hypotension was felt to be septic versus hypovolemia. All cultures including an enteric panel were negative. Empiric antibiotics were discontinued given negative results on her cultures on 09/26/2021. She was maintained on Levophed and vasopressin and stress dose steroids were initiated and she remained on pressors until the evening of 09/25/2021. A CTA of her chest was performed and was negative for PE however showed mild degree of emphysematous changes more prominent in the upper lobes and bilateral small ple ural effusions along with bibasilar atelectasis. Her GUME rapidly resolved with hydration and her diarrhea had improved with resolution on 09/26/2021. She was able to be transferred out of the ICU and maintained stability on her baseline supplemental oxygen of 2 L. Her antihypertensives were held during her hospitalization and prior to discharge we held her losartan and Aldactone for which she will need to be reevaluated in the outpatient setting but we did reinitiate her carvedilol at 12.5 mg twice daily. We recommend continued blood pressure monitoring and reinitiation of other medications when appropriate. She had some mild electrolyte disturbances while she was hospitalized and these were replaced. She remained stable off antibiotics and stress dose steroids were able to be discontinued on the day of discharge. As noted above her enteric panel was negative and we suspect that she might of had a viral gastroenteritis that was the precipitating etiology for all of her above issues. She was ambulated prior to discharge and oxygen saturations were found to be 93% on her supplemental oxygen at 2 L. That was recommended SNF placement be pursued upon discharge however patient and family were resistant to this and insisted on taking her home. They did indicate she would have 24-hour care and assistance while she was home and we did arrange for home health follow-up after discharge. The patient was discharged on 09/30/2021 to home as per family request but unfortunately she was found to be very weak at home which was medicated to the family prior to that and taking her home and she tripped on her oxygen tubing and hit her left rib on a wooden structure. It is noted that her helped to break her fall. She returned and was readmitted early this morning for placement. Family is now amenable to alf facility. An x-ray was performed and showed no fracture. Her labs were reviewed and were stable when compared to the previous day. Case management and I discussed her case and we were able to get her into [facility] and she was dischar anjelica in stable condition on 09/30/2021. Charge diagnoses: Debility Fall COPD Chronic hypoxic respiratory failure TIO History of Takotsubo cardiomyopathy-cardiomyopathy resolved History of NSTEMI Hypertension Hyperlipidemia History of DVT Insomnia Chronic anemia Anxiety Depression Physical Exam Const alert and no apparent distress Constitutional Narrative: Overweight upper middle-aged white female who appears much older than stated age sitting up in bed, appears comfortable nontoxic, some mild confusion which appears consistent based on my exam of her yesterday General Appearance: cooperative, comfortable and well developed Exam Limitations: other limitations Nutritional Appearance: overweight HEENT normocephalic and head/scalp atraumatic HEENT Narrative: Poor dentition, Mallampati is 3, no thrush Eyes PERRL, EOMs intact bilaterally and conjunctivae normal Eyes Narrative: No scleral icterus Neck no lymphadenopathy, supple and no JVD Resp normal respiratory effort, no retractions and no use of accessory muscles Resp Narrative: Markedly diminished diffusely with no adventitious sounds Auscultation: Negative for crackles, rales, rhonchi or wheezes Cardio regular rate, regular rhythm, S1 normal heart sound, S2 normal heart sound, no murmurs, no rub, no gallops, no clicks and no JVD GI normal to inspection, nondistended, normoactive bowel sounds, soft to palpation, non-tender and non-distended Extremity no clubbing, cyanosis or edema Skin skin turgor normal and no jaundice Skin Narrative: Scattered ecchymosis, right neck ecchymosis from recent central line placement/removal Neuro CN's II-XII intact bilaterally, moves all extremities and no focal motor deficits Neuro Narrative: Significant generalized weakness Sensorium / Orientation: awake and alert Speech: speech normal Psych affect normal Weight / BMI Weight Weight: 74.2 kg Body Mass Index (BMI) 29.0 ABG / Lab / Microbiology Data Result Diagrams: 09/30/21 00:30 09/30/21 00:30 Laboratory: Laboratory Results - last 24 hr 09/30/21 00:30: WBC 12.8 H, RBC 3.57 L, Hgb 10.7 L, Hct 33.4 L, MCV 93.6, MCH 30.0, MCHC 32.0, RDW Std Deviation 51.4 H, RDW Coeff of Deonte 15.0 H, Plt Count 115 L, MPV 10.9, Immature Gran % (Auto) 4.500 H, Neut % (Auto) 72.2 H, Lymph % (Auto) 12.6 L, [place] % (Auto) 8.4, Eos % (Auto) 2.0, Baso % (Auto) 0.3, Absolute Neuts (auto) 9.2 H, Absolute Lymphs (auto) 1.61, Nucleated RBC % 0.2, Differential Comment SCANNED, Platelet Estimate ADEQUATE 09/30/21 00:30: Sodium 141, Potassium 4.7, Chloride 108 H, Carbon Dioxide 29.0, Anion Gap 4 L, BUN 16, Creatinine 0.71, Estim Creat Clear Calc 45.78, Est GFR (MDRD) Af Amer 106, Est GFR (MDRD) Non-Af 87, BUN/Creatinine Ratio 22.5 H, Glucose 155 H, Calcium 8.8 Radiography Diagnostic Testing: Radiology Impression Chest X-Ray 09/30/21 00:00 IMPRESSION: Bibasilar platelike atelectasis. Electronically Signed: Reno Deshpande MD at 1:00 EDT , Meaningful Use Info Meaningful Use Diagnoses (Choose all that apply): None applicable Discharge Plan Admission Admit Date/Time: 09/30/21 01:31 Primary Reason for Your Visit: Fall Attending Provider: Francesca Anne Primary Care Provider: Maryam Pineda Discharge Orders/Prescriptions Prescriptions: Continued albuterol sulfate [Ventolin HFA] 90 mcg/actuation HFA aerosol inhaler 2 puff inhalation Q4H PRN (Reason: shortness of breath or wheezing) Qty: 18 RF: 6 [id number]-fwfmlhqo 100-62.5-25 mcg blister with device 1 inh inhalation DAILY Qty: 60 RF: 3 escitalopram oxalate [Lexapro] 10 mg tablet 10 mg PO DAILY RF: 0 mecobalamin (vitamin B12) 5,000 mcg tablet,disintegrating 5,000 mcg PO DAILY RF: 0 spironolactone 25 mg Tablet 12.5 mg PO DAILY RF: 0 Hold Instructions: Until instructed to reinitiate pantoprazole [Protonix] 40 mg Tablet,Delayed Release (Dr/Ec) 40 mg PO DAILY RF: 0 ropinirole 0.5 mg Tablet 0.5 mg PO QHS RF: 0 folic acid 1 mg Tablet 1 mg PO DAILY RF: 0 aspirin 81 mg Tablet 81 mg PO DAILY RF: 0 duloxetine 60 mg Capsule,Delayed Release(Dr/Ec) 60 mg PO DAILY RF: 0 cholecalciferol (vitamin D3) [Vitamin D3] 25 mcg (1,000 unit) Tablet 25 mcg PO DAILY RF: 0 potassium chloride 20 mEq Tablet Extended Release 20 meq PO DAILY RF: 0 albuterol sulfate 1.25 mg/3 mL Solution For Nebulization 1.25 mg INHALATION Q4H PRN (Reason: Shortness Of Breath Or Wheezing) RF: 0 hydrocodone-acetaminophen 1 TABLET tablet 1 tab PO Q6H PRN PRN (Reason: Pain) 3 Days Qty: 10 RF: 0 carvedilol 12.5 mg tablet 12.5 mg PO BID Qty: 60 RF: 11 Referrals / Follow Up: Maryam Pineda MD [Primary Care Provider] - Within 2 Weeks Disposition Disposition (needs filled in before D/C Order can be placed): Care Home Facility Charges/Coding Visit Charges Inpatient E&M: 42692 SNF Disch
--- NOTE | 2021-09-30 14:59 | TREXTCAR_ITS ---
Diet 09/30/21 04:31 Diet: Cardiac - Heart Healthy Is pt able to select menu?: Yes Routine Orders/Code Status O2 Liters per Minute: 2 O2 Frequency: Continuous Routine Lab Work: CBC (weekly) and BMP (weekly) Code Status: Full Code Therapies Weight Bearing: Full weight bearing Physical Therapy: Eval and Treat Occupational Therapy: Eval and Treat Speech Therapy: Eval and Treat Problem/Diagnosis (1) Fall: Status: Acute (2) Physical debility: Status: Acute Allergies/Procedures Done in Hospital Allergies tetanus and diphtheria toxoids [tetanus & diphtheria toxoids] Allergy (Verified 09/29/21 22:42) Hives Procedures: None Type of Care/Length of Stay Estimated LOS: Convalescent Care Less Than 30 days Type of Care Needed: Skilled Rehab Potential: Fair Prognosis: Fair Additional Orders/Day of Discharge Day of Discharge: 09/30/21 Dietary and Speech Recommendations Dietitian Recommendations/Changes: Continue cardiac diet as ordered. Pt denies need for ONS at this time; will offer as indicated. Discharge Plan Admission Admit Date/Time: 09/30/21 01:31 Primary Reason for Your Visit: Fall Attending Provider: Francesca Anne Primary Care Provider: Maryam Pineda Discharge Orders/Prescriptions Prescriptions: Continued albuterol sulfate [Ventolin HFA] 90 mcg/actuation HFA aerosol inhaler 2 puff inhalation Q4H PRN (Reason: shortness of breath or wheezing) Qty: 18 RF: 6 [id number]-vmzcqvpfm-fezudvgv 100-62.5-25 mcg blister with device 1 inh inhalation DAILY Qty: 60 RF: 3 escitalopram oxalate [Lexapro] 10 mg tablet 10 mg PO DAILY RF: 0 mecobalamin (vitamin B12) 5,000 mcg tablet,disintegrating 5,000 mcg PO DAILY RF: 0 spironolactone 25 mg Tablet 12.5 mg PO DAILY RF: 0 Hold Instructions: Until instructed to reinitiate pantoprazole [Protonix] 40 mg Tablet,Delayed Release (Dr/Ec) 40 mg PO DAILY RF: 0 ropinirole 0.5 mg Tablet 0.5 mg PO QHS RF: 0 folic acid 1 mg Tablet 1 mg PO DAILY RF: 0 aspirin 81 mg Tablet 81 mg PO DAILY RF: 0 duloxetine 60 mg Capsule,Delayed Release(Dr/Ec) 60 mg PO DAILY RF: 0 cholecalciferol (vitamin D3) [Vitamin D3] 25 mcg (1,000 unit) Tablet 25 mcg PO DAILY RF: 0 potassium chloride 20 mEq Tablet Extended Release 20 meq PO DAILY RF: 0 albuterol sulfate 1.25 mg/3 mL Solution For Nebulization 1.25 mg INHALATION Q4H PRN (Reason: Shortness Of Breath Or Wheezing) RF: 0 hydrocodone-acetaminophen 1 TABLET tablet 1 tab PO Q6H PRN PRN (Reason: Pain) 3 Days Qty: 10 RF: 0 carvedilol 12.5 mg tablet 12.5 mg PO BID Qty: 60 RF: 11 Referrals / Follow Up: Maryam Pineda MD [Primary Care Provider] - Within 2 Weeks Disposition Disposition (needs filled in before D/C Order can be placed): Long Term Facility
--- NOTE | 2021-09-30 15:50 | NURSING ---
This nurse is aware of Vitals taken around 1440 by Jose Rafael cartagena [place] nursing students.
--- NOTE | 2021-09-30 17:39 | CASEMGMT ---
Addendum entered by Carla Hernández 09/30/21 17:44: PAS/RR completed. IBETH faxed completed discharge paperwork to [facility] including transfer to extended care, signed medication list, any scripts, COVID test/tool, PAS/RR and PAS/RR results. Original in SNF folder and copy on pt's chart. SW spoke with RN, recommendation is for pt to transport via wheelchair van. SW accessed trip assist and arranged transportation via wheelchair van for 8:30pm. Transportation form completed and placed on SNF folder and copy on pt's chart. SW in to speak with pt, pt's daughter Ameena and pt's s/o Oscar and updated them that pt will discharge to [facility] today at 8:30pm. Pt, Ameena, and Oscar all state understanding. SW updated RN. IBETH placed a call to Sammie at [facility] and left message updating her on transportation time. Plan: [facility] skilled today under PAS/RR level of care with Physician's transporting pt via wheelchair van at 8:30pm Carla HANKS, INTERCHANGE AGENT Original Note: Social Work Note IBETH received call from Sammie at [facility] stating they can accept pt today. Sammie asked about pt's vaccination status. IBETH updated physician. IBETH in to speak with pt and pt's s/o Oscar present with pt. IBETH informed pt that this worker spoke with her daughter Ameena who wanted [facility] for pt and pt has been accepted there and will discharge there today. Oscar states he can transport pt. SW to fax discharge paperwork once completed. Plan: [facility] skilled today. Carla HANKS, INTERCHANGE AGENT
[2021-09-30] MEDS: LORazepam 0.5 MG Tablet PO (18:26)
[2021-09-30] MEDS: Pramipexole Di-HCl 0.25 MG Tablet PO (22:20)
--- NOTE | 2021-09-30 22:35 | NURSING ---
[facility] ambulance here to transport [facility]. Daughter Ameena notified as requested.
== END 2021-09-30 22:42 | disposition skilled nursing facility (03) ==
LOC: ED 09-30 01:23 → MS3 09-30 03:22
PROVIDERS: Admitting Provider Hospitalist; Emergency Provider Emergency Medicine; PCP Internal Medicine; Visit Provider Internal Medicine
DX: R53.81 Other malaise (principal); J44.9 Chronic obstructive pulmonary disease, unspecified; I11.0 Hypertensive heart disease with heart failure; I50.22 Chronic systolic (congestive) heart failure; I42.8 Other cardiomyopathies; I27.21 Secondary pulmonary arterial hypertension; J96.11 Chronic respiratory failure with hypoxia; S20.20XA Contusion of thorax, unspecified, initial encounter; W01.10XA Fall on same level from slipping, tripping and stumbling with subsequent striking against unspecified object, initial encounter; Z79.82 Long term (current) use of aspirin; G47.33 Obstructive sleep apnea (adult) (pediatric); F41.9 Anxiety disorder, unspecified; E78.5 Hyperlipidemia, unspecified; Z99.81 Dependence on supplemental oxygen; Z87.891 Personal history of nicotine dependence; R19.7 Diarrhea, unspecified; Y93.9 Activity, unspecified; Y99.9 Unspecified external cause status; Y92.9 Unspecified place or not applicable; Z79.899 Other long term (current) drug therapy; K21.9 Gastro-esophageal reflux disease without esophagitis; Z86.718 Personal history of other venous thrombosis and embolism; F32.A Depression, unspecified
CPT/HCPCS: 71045; 80048; 85025; 87426; 94640; 96360; 97162; 97166; 97802; 99218; 99251; 99285; J7040; A4216; G0378; G0463

== ENCOUNTER 2021-10-10 09:52 | Outpatient (CLI) | payer MEDICARE, SELFPAY ==
[2021-10-10 10:54] LABS: Absolute Neutrophil Count 4.1 X10^3/uL (2.0-7.7); Basophil# 0.03 X10^3/uL; Basophil% 0.4 % (0-1); Eosinophils% 1.4 % (0-5); Hematocrit 28.6 % (37-47); Hemoglobin 8.8 g/dL (12.0-15.0); Lymphocyte % 23.1 % (19-41); Mean Corp Hgb Conc 30.8 g/dL (32-36); Mean Corpuscular Hgb 30.6 pg (27.0-32.0); Mean Corpuscular Volume 99.3 fL (81-99); Mean Platelet Vol. 9.3 fl (6.2-12.0); Monocyte# 1.05 X10^3/uL; Monocyte% 15.1 % (0-10); NRBC Flagged by Analyzer 0 % (0-5); Neutrophil # 4.11 X10^3/uL (2.7-7.7); Neutrophil % 59.3 % (47-70); Platelet Count 315 K/mm3 (150-450); RBC Distribution Width CV 15.1 % (11.6-14.6); RBC Distribution Width SD 54.4 fl (35.1-43.9); Red Blood Count 2.88 M/mm3 (4.2-5.4); White Blood Count 6.9 K/mm3 (4.4-11.0)
[2021-10-10 11:19] LABS: BNP,B-Type NATRIURETIC PEPTIDE 283.7 pg/mL (0-100)
[2021-10-10 11:26] LABS: ALB/GLOB Ratio 0.6 RATIO (0.9-2.4); AST(SGOT) 10 U/L (15-37); Alanine Aminotransfer ALT/SGPT 14 U/L (13-56); Albumin, Serum 2.2 g/dL (3.2-5.0); Alkaline Phosphatase 81 U/L (45-117); Anion Gap 1 (5-15); BUN 7 mg/dL (7-18); BUN/Creat Ratio 10.2 RATIO (10-20); Calcium,Total 8.7 mg/dL (8.5-10.1); Chloride 103 mmol/L (98-107); Creatinine, Serum 0.68 mg/dL (0.55-1.02); EST Glomerular Filtration Rate 91 mL/min (>60); Est Glom Filt Rate - Afr Amer 110 mL/min (>60); Globulin 3.7 g/dL (2.2-4.2); Glucose 112 mg/dL (74-106); Potassium 3.6 mmol/L (3.5-5.1); Protein, Total 5.9 g/dL (6.4-8.2); Sodium Level 141 mmol/L (136-145); Troponin-I HS 12 pg/mL (3.0-54.0)
== END 2021-10-10 23:59 | disposition home or self-care (01) ==
PROVIDERS: PCP Internal Medicine; Visit Provider Internal Medicine
DX: I51.7 Cardiomegaly (principal); N17.9 Acute kidney failure, unspecified; I50.9 Heart failure, unspecified; E87.70 Fluid overload, unspecified
CPT/HCPCS: 36415; 80053; 83880; 84484; 85025

== ENCOUNTER 2021-12-06 10:47 | Emergency (ER) | payer MEDICARE, SELFPAY ==
[2021-12-06 10:48] VITALS: BP 149/83; PULSE 83; RESP 20; TEMP 36.1; BMI 25.6
--- NOTE | 2021-12-06 11:11 | EDS_ITS ---
HPI <FRED Morales - Last Filed: 12/06/21 12:46> History of Present Illness Chief Complaint: Anxiety Narrative Narrative: 66-year-old female with history of CVA, anxiety, depression, COPD on oxygen presents to the emergency department with complaints of anxiety. Patient states that over the last couple weeks, she has felt out of control. She is on Lexapro however states that this is not helping she has been on Lexapro for 6 months. Patient has had MIs, CVA in the last 3 years, states that since then everything has been very overwhelming. Patient states that she thinks she is suffering from depression and over the last couple weeks it has been getting worse and she is getting anxious over everything. Patient states that she starts shaking, hyperventilating, and feels that she is losing control. She denies any chest pain, fever chills worsening shortness of breath. PFSH <FRED Morales - Last Filed: 12/06/21 12:46> [facility] Medical History Alcohol abuse Anxiety Anxiety and depression Chronic anemia Chronic systolic (congestive) heart failure CO2 narcosis Congestive heart failure (CHF) COPD (chronic obstructive pulmonary disease) Daytime hypersomnia Essential (primary) hypertension Fall GERD (gastroesophageal reflux disease) Head concussion Hemorrhagic cerebrovascular accident (CVA) (02/09/17) History of DVT of lower extremity (02/11/17) History of non-ST elevation myocardial infarction (NSTEMI) (02/03/17) Hypercarbia Hyperlipidemia Insomnia Ischemic cerebrovascular accident (CVA) (02/06/17) Non-ischemic cardiomyopathy Non-rheumatic mitral regurgitation TIO (obstructive sleep apnea) Respiratory insufficiency Secondary pulmonary arterial hypertension Stroke Takotsubo cardiomyopathy (06/17/21) TIA (transient ischemic attack) (10/25/19) Weakness due to old stroke Home Medications aspirin 81 mg PO DAILY 11/03/20 [History Last Taken Unknown] cholecalciferol (vitamin D3) [Vitamin D3] 25 mcg PO DAILY 11/03/20 [History Last Taken Unknown] duloxetine 60 mg PO DAILY 11/03/20 [History Last Taken Unknown] folic acid 1 mg PO DAILY 11/03/20 [History Last Taken Unknown] pantoprazole [Protonix] 40 mg PO DAILY 11/03/20 [History Last Taken Unknown] potassium chloride 20 meq PO DAILY 11/03/20 [History Last Taken Unknown] ropinirole 0.5 mg PO QHS 11/03/20 [History Last Taken Unknown] spironolactone 12.5 mg PO DAILY 11/03/20 [History Last Taken Unknown] albuterol sulfate 90 mcg/actuation aerosol inhaler 2 puff INHALATION Q4H PRN #18 g 12/23/20 [Rx Last Taken Unknown] fluticasone fur. 100 mcg-umeclid 62.5 mcg-vilant 25 mcg inhalat.powder 1 inh INHALATION DAILY #60 ea 12/23/20 [Rx Last Taken Unknown] albuterol sulfate 1.25 mg INHALATION Q4H PRN 06/15/21 [History Last Taken Unknown] escitalopram oxalate 10 mg tablet 10 mg PO DAILY 07/07/21 [History Last Taken Unknown] mecobalamin (vitamin B12) 5,000 mcg disintegrating tablet 5,000 mcg PO DAILY 07/07/21 [History Last Taken Unknown] carvedilol 12.5 mg tablet 12.5 mg PO BID #60 tab 09/10/21 [Rx Last Taken Unknown] losartan 25 mg tablet 25 mg PO DAILY tab 12/02/21 [History Last Taken Unknown] zolpidem 10 mg tablet 10 mg PO QHS PRN tab 12/02/21 [History Last Taken Unknown] hydroxyzine pamoate [Vistaril] 25 mg PO BID PRN #20 cap 12/06/21 [Rx Last Taken Unknown] Allergy/AdvReac Type Severity Reaction Status Date / Time tetanus and diphtheria Allergy Hives Verified 12/06/21 10:48 toxoids [tetanus & diphtheria toxoids] Family History Sister Cancer lung Father Cancer lung Mother Cancer lung Surgical History H/O: section History of bilateral cataract extraction History of cholecystectomy History of left heart catheterization (06/17/21) History of lumpectomy Hx of appendectomy Social History household members: none Smoking Status: Former smoker how long ago did patient quit smokin, 1pk/day second hand exposure: Yes alcohol intake: former substance use type: does not use what type of physical activity do you participate in: walking frequency: daily ROS <FRED Morales - Last Filed: 12/06/21 12:46> ROS ED ROS Narrative Constitutional: Negative for fever, chills, weight loss, weakness Eyes: Negative for vision loss, vision change, double vision ENT: Negative for any sore throat, ear pain, congestion Cardiovascular: Negative for any chest pain, tightness, palpitations Respiratory: Negative for any cough, sputum production, hemoptysis, dyspnea, dyspnea on exertion, orthopnea Gastrointestinal: Negative for any abdominal pain, nausea, vomiting, diarrhea, c onstipation, blood in stool, blood in vomit : Negative for any urinary frequency, dysuria, retention, blood in urine Muscle skeletal: Negative for any muscle joint pain, stiffness, myalgias, arthralgias, neck pain, back pain Neurological: Negative for any headache, syncope, numbness or tingling, dizziness Skin: Negative for any rashes, lumps, itching, abrasions, lacerations Psychiatric: Negative for any depression, suicidal ideation, homicidal ideation. Positive for anxiety, stress Hematologic: Negative for any easy bruising, excessive bruising, easy bleeding Allergies: Negative for any eczema, hives, rash EXAM <FRED Morales - Last Filed: 12/06/21 12:46> Physical Exam Narrative Exam Narrative: Vital signs reviewed. Patient does appear alert, oriented, in no distress. Patient does appear to be hyperventilating, does appear anxious. Tearful when discussing her medical history, think that she is unable or have difficulty doing now. Denies any suicidal, homicidal ideation. HEET: Head normocephalic atraumatic, TMs clear bilaterally. Posterior pharynx is clear, moist mucous membranes. Nares clear bilaterally. Neck: Supple with no lymphadenopathy or tenderness. No signs of meningismus, negative jolt sign. Cardiac: Regular rate and rhythm no murmurs gallops or rubs, equal peripheral pulses bilaterally. Respiratory: Lungs clear to auscultation bilaterally. No chest tenderness. Abdomen: Soft, nontender, nondistended. No abdominal bruit or pulsatile masses. No hepatosplenomegaly Extremities: No peripheral edema, no signs of gross trauma or deformity. Active full range of motion of all extremities. Neuro: Cranial nerves II through XII intact, no focal neurological deficits. Skin: Clean dry and intact with no rash, purpura, petechiae, vesicles or pustules. Backs/flank: No CVA tenderness, no midline spinal tenderness, no deformity. Psych: Normal mood and affect. No SI, HI or acute psychosis. Const Vital Signs: 12/06/21 10:48 12/06/21 12:49 Temperature 97 F L Temperature Source Temporal Pulse Rate 83 Respiratory Rate 20 H 16 Blood Pressure 149/83 H Blood Pressure Mean 105 Positive well nourished and well developed General Appearance ED: well developed <Dr. Ashok Bran DO - Last Filed: 12/06/21 14:14> Physical Exam Const Vital Signs: 12/06/21 10:48 12/06/21 12:49 Temperature 97 F L Temperature Source Temporal Pulse Rate 83 Respiratory Rate 20 H 16 Blood Pressure 149/83 H Blood Pressure Mean 105 MDM <FRED Morales - Last Filed: 12/06/21 12:46> [facility] Narrative Medical decision making narrative: Patient arrives anxious, shaky, tearful, patient presents the [facility] apartment with ongoing anxiety for the multiple weeks. Patient's physical examination showed no evidence of SI, HI. Patient was given an Ativan here, on reassessment, the patient felt much better, she was much more calm. I do believe the patient is suffering from some depression secondary to her medical history, recent CVA, ID. I was able to reach out to social work, they did meet with the patient for resource management. Patient will follow-up with the recommendations, she will also be given Vistaril for home. She is instructed continue her medication regimen and to return here for any worsening symptoms. She is happy with the plan of care at, and is stable for discharge Lab Data Attestation: I reviewed the patient's lab results. <Dr. Ashok Bran DO - Last Filed: 12/06/21 14:14> [facility] Narrative Medical decision making narrative: This patient was seen with a PA/[facility]FF PHARM[facility]IST [facility] Individually assessed they patient including history and physical. I have reviewed everything on the chart that is available and agree with the documentation provided by the PA/[facility] including discussion about the assessment, treatment plan, discussion, and return precautions. Patient presenting an ongoing issue of anxiety. Patient was given Ativan in the ER and felt improved. Social work was able to speak with her and give her some resources. We will give her Vistaril for home. Do not believe she has blood work and imaging. Patient stable for discharge. Impression: 1. anxiety Discharge Plan Triage Chief Complaint: Anxiety ED Midlevel Provider: Jadon Long ED Provider: Ashok Bran Dx/Rx/DC Orders Clinical Impression: Anxiety Instructions: Anxiety Disorders Tx Therapy, ED Anxiety Reaction Prescriptions: New hydroxyzine pamoate [Vistaril] 25 mg capsule 25 mg PO BID PRN (Reason: itching) Qty: 20 RF: 0 No Action albuterol sulfate [Ventolin HFA] 90 mcg/actuation HFA aerosol inhaler 2 puff inhalation Q4H PRN (Reason: shortness of breath or wheezing) Qty: 18 RF: 6 [id number]-wczkaugy 100-62.5-25 mcg blister with device 1 inh inhalation DAILY Qty: 60 RF: 3 escitalopram oxalate [Lexapro] 10 mg tablet 10 mg PO DAILY RF: 0 mecobalamin (vitamin B12) 5,000 mcg tablet,disintegrating 5,000 mcg PO DAILY RF: 0 zolpidem 10 mg tablet 10 mg PO QHS PRN (Reason: Sleep) RF: 0 losartan 25 mg tablet 25 mg PO DAILY RF: 0 spironolactone 25 mg Tablet 12.5 mg PO DAILY RF: 0 Hold Instructions: symptoms of low blood pressure 12/02/21 pantoprazole [Protonix] 40 mg Tablet,Delayed Release (Dr/Ec) 40 mg PO DAILY RF: 0 ropinirole 0.5 mg Tablet 0.5 mg PO QHS RF: 0 folic acid 1 mg Tablet 1 mg PO DAILY RF: 0 aspirin 81 mg Tablet 81 mg PO DAILY RF: 0 duloxetine 60 mg Capsule,Delayed Release(Dr/Ec) 60 mg PO DAILY RF: 0 cholecalciferol (vitamin D3) [Vitamin D3] 25 mcg (1,000 unit) Tablet 25 mcg PO DAILY RF: 0 potassium chloride 20 mEq Tablet Extended Release 20 meq PO DAILY RF: 0 albuterol sulfate 1.25 mg/3 mL Solution For Nebulization 1.25 mg INHALATION Q4H PRN (Reason: Shortness Of Breath Or Wheezing) RF: 0 carvedilol 12.5 mg tablet 12.5 mg PO BID Qty: 60 RF: 11 Primary Care Provider: Maryam Pineda Referrals: Maryam Pineda MD [Primary Care Provider] - Activity Restrictions/Additional Instructions: Please use your resources given to you. Use Vistaril for any anxiety until seen by psychologist/counselor Print Language: Ecuadorean Disposition Disposition: Home, Self Care Discharge Date/Time: 12/06/21 12:50
[2021-12-06] MEDS: LORazepam 1 MG Tablet PO (11:12)
[2021-12-06 12:49] VITALS: RESP 16
--- NOTE | 2021-12-06 14:05 | CM.ED ---
IBETH Note Referral Source: VICE PRESIDENT OF MARKETING Jadon Long Referral Reason: Anxiety SW received call from Business Office Coordinator Ginny that stated that VICE PRESIDENT OF MARKETING would like patient to be seen for resources. SW met with VICE PRESIDENT OF MARKETING who stated that patient reports anxiety related to recent medical issues including MH and CVA. IBETH and IBETH Gonzalezbambi Quezada met with patient and her brother in the ED. Patient was calm and was able to make good eye contact (per VICE PRESIDENT OF MARKETING one Ativan had been prescribed for patient and it was working well). Patient confirmed that she presented to the ED for anxiety and that due to the anxiety she has been having difficulty leaving the house. SW discussed with patient [facility] Behavioral Health program and discussed with patient the reduction in anxiety that patients in the [facility] program report. Patient was open to a referral to the program and said that her brother would also benefit from the program and she wanted him to go to the program also. SW provided patient with handout from [facility] Behavioral Health and also provided a business card for PHP/IOP Behavioral Health Coordinator, Ofe Jacinto. Patient was in agreement with referral to [facility] PHP/IOP. IBETH sent email to Ofe Smith regarding referral to [facility] PHP/IOP program. Plan: Referral to PHP/IOP program Xiomara WRIGHT
--- NOTE | 2021-12-06 16:06 | CM.ED ---
Addendum entered by Xiomara Mcghee 12/06/21 16:07: For clarification NO History. Patient : single Patient orientation is x4 Memory : Good Appearance:Clean and appropriate Mood and affect :Depressed Communication Pattern :Responds to questions Thought Process: Appropriate General Intellectual Functioning: Average Judgement: Fair Insight: Good Xiomara WRIGHT Original Note: Social Work Psychiatric Assessment Reason for consult: Anxiety Informant(s): Patient Chief Complaint: SW spoke to patient a about her presentation to the ED today. Patient said that she came to the hospital as she was ?shaking really bad.? Patient said that this has ?came and went in the past but this is the worse I had it.? Patient again voiced ?this is the worse.? Patient also reports no sleep. Patient said that she has sleep apnea and has a machine for the apnea but reports it is not a cpap. Marital/Social History: Marital Status: ? Single Identified Gender: Female Sexual Orientation: Heterosexual. Patient reports that she has been in a relationship with her significant other, Oscar Frank, for 20 + years. Living Situation: Patient resides in a house with her significant other, Oscar and their dogs. Patient reports they have a little dog but recently had to put two of their ?older dogs down? and that was difficult. Support/Resources: Patient said that her supports are her brother, Antelmo and her significant other, Oscar. History: ? Yes ? No Education and Employment History: Patient reports that the last grad she completed in school was the ninth grade. SW asked about any learning issues or delays and patient said, ?that is a conversation for another time.? Patient said that she worked for [employer] for 20 years and has been retired for 10 years. 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 Patient said that she has been on Zoloft for 30 years. Patient said that for the last 6 months she has been on Lexapro 10 mg and Cymbalta 60 mg, but she has not noted any positive change. Patient?s PCP has prescribed her psych medication. Triggers/Stressors: Patient reports that her stressors are her medical issues (past CVA and CO) Coping Skills: Patient said that her coping skills are ?going inside and laying down and praying.? Abuse Issues: Denied Substance Abuse Hx: Denied Risk to Self/Others: ? Suicidal: Denied ? Homicidal: Denied ? Violence: Denied Mental Status Exam: Orientation: ? Time ? Place ?Person Memory: ? Good ? Fair ? Poor ? Impaired Appearance/General Behavior: ? clean/appropriate ? disheveled ? unclean ? slumped ?threatening ? agitated ? directable ? non-directable ? calm ? other, explain Mood/Affect: ? appropriate ? angry ? depressed ? elevated ? anxious ? labile ? bizarre ? other, explain Communication Pattern: ? responds to questions ? does not initiate ? slurred ? rambling ? pressured ? rapid ? incoherent ? other, explain Thought Process: ? appropriate ? hallucinations A/V ? delusions ? paranoid ? fragmented ? preoccupied ? other, explain General Intellectual Functioning: ? Below Average ? Average ? Above Average Judgment: ? good ? fair ? poor ? unable to evaluate Insight: x good ? fair ? poor ? unable to evaluate SW and IBETH Carla Hernández had spoken to patient in the ED to discuss the [facility] programming. Patient was open to the referral to PHP/IOP. Later, IBETH called patient at her home to get background information so psychiatric assessment could be completed. Patient was very open and willing to complete the assessment. WATCH PARTS GRINDER Jadon Long requested this mortgage or loan underwriter speak to patient regarding resources. IBETH updated RN and WATCH PARTS GRINDER that patient was open to referral to PHP/IOP at [facility] and WATCH PARTS GRINDER in agreement with the plan for referral to PHP/IOP. Plan: Referral to [facility] PHP/IOP Xiomara WRIGHT
== END 2021-12-06 12:50 | disposition home or self-care (01) ==
PROVIDERS: Emergency Provider Student in an Organized Health Care Education/Training Program; PCP Internal Medicine; Visit Provider Student in an Organized Health Care Education/Training Program
DX: F41.9 Anxiety disorder, unspecified (principal); J44.9 Chronic obstructive pulmonary disease, unspecified; I11.0 Hypertensive heart disease with heart failure; I50.22 Chronic systolic (congestive) heart failure; I42.8 Other cardiomyopathies; I27.21 Secondary pulmonary arterial hypertension; Z86.73 Personal history of transient ischemic attack (TIA), and cerebral infarction without residual deficits; F32.A Depression, unspecified; Z87.891 Personal history of nicotine dependence; E78.5 Hyperlipidemia, unspecified; I25.2 Old myocardial infarction; K21.9 Gastro-esophageal reflux disease without esophagitis; Z86.718 Personal history of other venous thrombosis and embolism; I34.0 Nonrheumatic mitral (valve) insufficiency; G47.33 Obstructive sleep apnea (adult) (pediatric); Z79.82 Long term (current) use of aspirin; Z79.899 Other long term (current) drug therapy
CPT/HCPCS: 99283

== ENCOUNTER 2022-01-08 11:31 | Emergency (ER) | payer MEDICARE, SELFPAY ==
[2022-01-08 11:33] VITALS: BP 133/65; PULSE 92; RESP 21; TEMP 36.1; O2SAT 97; BMI 24.7
--- NOTE | 2022-01-08 11:42 | EKG12_ITS ---
Test Reason : Blood Pressure : / mmHG Vent. Rate : 089 BPM Atrial Rate : 089 BPM P-R Int : 152 ms QRS Dur : 086 ms QT Int : 368 ms P-R-T Axes : 068 066 070 degrees QTc Int : 447 ms Normal sinus rhythm Normal ECG Confirmed by RUSS MENDES, ANALY ([id number]), editor in chief NICOLE ARANGO ([id number]) on 01/10/2022 9:31:17 AM Referred By: Confirmed By:ANALY SOLANO MD
--- NOTE | 2022-01-08 11:42 | CT_ITS ---
STUDY: CT BRAIN WITHOUT CONTRAST REASON FOR EXAM: Female, 66 years old. Altered mental status. Recent fall. RADIATION DOSAGE (If Supplied By Facility): CTDIvol = ( 47.06 ) mGy, DLP = ( 890.33 ) mGycm TECHNIQUE: Transaxial CT imaging of the brain was performed without administration of intravenous contrast material. Individualized dose optimization techniques were used for this CT. COMPARISON: No relevant priors. FINDINGS: Normal soft tissue structures. Normal calvarium. Moderate sized acute on chronic subdural hematoma overlying the right frontal temporal parietal and occipital lobes. There is shift of the midline from right to left measuring 1.2 cm. Stable encephalomalacia in the right occipital lobe as well as in the superior posterior left parietal occipital lobe. Normal basal ganglia and thalami. Normal brainstem. Normal cerebellum. There are no findings of an acute ischemic infarction. Minimal mucosal thickening at the base of the left maxillary sinus. CT/Brain/Head without Contrast IMPRESSION: Moderate size acute on chronic subdural hematoma overlying the right frontal temporoparietal and occipital lobes with shift of the midline from right to left measuring 1.2 cm. Stable encephalomalacia of the right occipital lobe and the superior posterior left parietal occipital lobe. N.B. : The above Results were Read Back by Vinny Mcghee MD to Patel Hurd MD, and understanding confirmed on 01/08/2022 12:15:21 (ET). Electronically Signed: Vinny Mcghee MD at 12:16 EDT ,
--- NOTE | 2022-01-08 11:53 | RAD_ITS ---
STUDY: X-RAY CHEST REASON FOR EXAM: Female, 66 years old. Unresponsive. TECHNIQUE: Single AP portable view of the chest. COMPARISON: Comparison is made with prior examination dated 09/30/2021. FINDINGS: EKG electrodes are seen. Hyperinflation. The lungs are clear. There is no demonstrated pleural abnormality. Normal size heart. Normal mediastinum and jacinto. Normal visualized pulmonary arteries. Normal visualized aortic arch and descending thoracic aorta. Normal visualized thoracic spine. Normal visualized ribs, clavicles, and shoulders. There is no demonstrated abnormality of the visualized soft tissue structures of the upper abdomen. RAD/Chest 1 View (Portable) IMPRESSION: Hyperinflation. The lungs are clear. Electronically Signed: Vinny Mcghee MD at 12:17 EDT ,
[2022-01-08 12:08] VITALS: PULSE 105; RESP 14; O2SAT 100
[2022-01-08 12:16] LABS: Absolute Lymphocyte Count 1.47 X10^3/uL (0.83-4.51); Absolute Neutrophil Count 9.1 X10^3/uL (2.0-7.7); Basophil# 0.04 X10^3/uL; Basophil% 0.4 % (0-1); Eosinophil# 0.01 X10^3/uL; Eosinophils% 0.1 % (0-5); Hematocrit 30.5 % (37-47); Hemoglobin 9.4 g/dL (12.0-15.0); Lymphocyte # 1.47 X10^3/ul (0.83-4.51); Mean Corp Hgb Conc 30.8 g/dL (32-36); Mean Corpuscular Volume 94.1 fL (81-99); Monocyte% 6.2 % (0-10); NRBC Flagged by Analyzer 0 % (0-5); Neutrophil # 9.06 X10^3/uL (2.7-7.7); Neutrophil % 79.8 % (47-70); Platelet Count 197 K/mm3 (150-450); RBC Distribution Width CV 12.6 % (11.6-14.6); RBC Distribution Width SD 43.4 fl (35.1-43.9); Red Blood Count 3.24 M/mm3 (4.2-5.4); White Blood Count 11.3 K/mm3 (4.4-11.0)
--- NOTE | 2022-01-08 12:20 | EX.ED.DYSGE1 ---
HPI History of Present Illness Chief Complaint: Unresponsive Informant: spouse/S.O., family and EMS Narrative Narrative: 66-year-old female reportedly was found near the living room floor last night and looked according to her significant other that the living room had been torn up. He states that she seemed somewhat confused but got her to bed. This morning he heard a large thud and found her on the floor. Patient has been only responsive to pain for EMS. She has a history of CHF, COPD on home oxygen, as well as a prior CVA. She takes a baby aspirin but no other blood thinners. [facility] Medical History Alcohol abuse Anxiety Anxiety and depression Chronic anemia Chronic systolic (congestive) heart failure CO2 narcosis Congestive heart failure (CHF) COPD (chronic obstructive pulmonary disease) Daytime hypersomnia Essential (primary) hypertension Fall GERD (gastroesophageal reflux disease) Head concussion Hemorrhagic cerebrovascular accident (CVA) (02/09/17) History of DVT of lower extremity (02/11/17) History of non-ST elevation myocardial infarction (NSTEMI) (02/03/17) Hypercarbia Hyperlipidemia Insomnia Ischemic cerebrovascular accident (CVA) (02/06/17) Non-ischemic cardiomyopathy Non-rheumatic mitral regurgitation TIO (obstructive sleep apnea) Respiratory insufficiency Secondary pulmonary arterial hypertension Stroke Takotsubo cardiomyopathy (06/17/21) TIA (transient ischemic attack) (10/25/19) Weakness due to old stroke Home Medications aspirin 81 mg tablet 81 mg PO DAILY heart health 11/03/20 [History Last Taken Unknown] cholecalciferol (vitamin D3) 25 mcg (1,000 unit) tablet (Vitamin D3) 25 mcg PO DAILY supplement 11/03/20 [History Last Taken Unknown] duloxetine 60 mg capsule,delayed release 60 mg PO DAILY depression 11/03/20 [History Last Taken Unknown] folic acid 1 mg tablet 1 mg PO DAILY supplement 11/03/20 [History Last Taken Unknown] pantoprazole 40 mg tablet,delayed release (Protonix) 40 mg PO DAILY GERD 11/03/20 [History Last Taken Unknown] potassium chloride 20 mEq tablet,extended release 20 meq PO DAILY supplement 11/03/20 [History Last Taken Unknown] ropinirole 0.5 mg tablet 0.5 mg PO QHS RLS 11/03/20 [History Last Taken Unknown] spironolactone 25 mg tablet 12.5 mg PO DAILY BP 11/03/20 [History Last Taken Unknown] albuterol sulfate 90 mcg/actuation aerosol inhaler (Ventolin HFA) 2 puff inhalation Q4H PRN shortness of breath or wheezing #18 grams 12/23/20 [Rx Last Taken Unknown] fluticasone fur. 100 mcg-umeclid 62.5 mcg-vilant 25 mcg inhalat.powder 1 inh inhalation DAILY COPD #60 ea 12/23/20 [Rx Last Taken Unknown] albuterol sulfate 1.25 mg/3 mL solution for nebulization 1.25 mg inhalation Q4H PRN Shortness Of Breath Or Wheezing 06/15/21 [History Last Taken Unknown] escitalopram oxalate 10 mg tablet (Lexapro) 10 mg PO DAILY 07/07/21 [History Last Taken Unknown] mecobalamin (vitamin B12) 5,000 mcg disintegrating tablet 5,000 mcg PO DAILY 07/07/21 [History Last Taken Unknown] carvedilol 12.5 mg tablet 12.5 mg PO BID BP #60 tabs 09/10/21 [Rx Last Taken Unknown] losartan 25 mg tablet 25 mg PO DAILY 12/02/21 [History Last Taken Unknown] zolpidem 10 mg tablet 10 mg PO QHS PRN Sleep 12/02/21 [History Last Taken Unknown] hydroxyzine pamoate 25 mg capsule (Vistaril) 25 mg PO BID PRN itching #20 caps 12/06/21 [Rx Last Taken Unknown] Allergy/AdvReac Type Severity Reaction Status Date / Time tetanus and diphtheria Allergy Hives Verified 01/08/22 12:26 toxoids [tetanus & diphtheria toxoids] Family History Sister Cancer lung Father Cancer lung Mother Cancer lung Surgical History H/O: section History of bilateral cataract extraction History of cholecystectomy History of left heart catheterization (06/17/21) History of lumpectomy Hx of appendectomy Social History household members: none Smoking Status: Former smoker how long ago did patient quit smokin, 1pk/day second hand exposure: Yes alcohol intake: former substance use type: does not use what type of physical activity do you participate in: walking frequency: daily ROS ROS ED Review of Systems ROS Unobtainable: due to endotracheal tube and due to mental status EXAM Physical Exam Const Vital Signs: 01/08/22 11:33 01/08/22 12:04 01/08/22 12:08 Temperature 97.0 F L Temperature Source Temporal Pulse Rate 92 105 H Respiratory Rate 21 H 14 Respiratory Effort Normal Non-Labored Respiratory Depth Shallow Respiratory Pattern Tachypnea Normal Blood Pressure 133/65 H Blood Pressure Mean 87 Blood Pressure Source Blood Pressure Position Blood Pressure Location Pulse Ox 97 100 Oxygen Delivery Method Nasal Cannula Oxygen Flow Rate (L/min) 2 Fraction of Inspired Oxygen (FIO2) 30 01/08/22 12:36 01/08/22 12:49 Temperature 96.7 F L Temperature Source Temporal Pulse Rate 87 95 Respiratory Rate 14 14 Respiratory Effort Respiratory Depth Respiratory Pattern Blood Pressure 121/75 H 142/74 H Blood Pressure Mean 90 96 Blood Pressure Source Monitor Blood Pressure Position Semi-Fowlers Blood Pressure Location Right Arm Pulse Ox 99 100 Oxygen Delivery Method Mechanical Ventilator Mechanical Ventilator Oxygen Flow Rate (L/min) Fraction of Inspired Oxygen (FIO2) 30 Positive well nourished and well developed General Appearance ED: well developed HEENT Reports normocephalic, head/scalp atraumatic and moist mucous membranes Eyes PERRL and EOMs intact bilaterally Eyes Narrative: Pupils are 4 mm to 2 mm bilaterally. Decreased corneal reflex Neck no lymphadenopathy, supple and no JVD Resp clear to auscultation bilaterally Resp Narrative: Patient has guppy breathing Cardio regular rate, regular rhythm and no murmurs GI normal to inspection, nondistended, normoactive bowel sounds and non-tender Palpation: soft Back/Spine no CVA tenderness Extremity normal to inspection General Extremety ED: Negative for edema General Extremity: Negative for edema Neuro Neuro Narrative: Patient will withdrawal to deep pain. She will occasionally open her eyes. She is making unintelligible noises GCS is 8. Skin no rashes or lesions noted and no wounds MDM MDM MDM Narrative Medical decision making narrative: Patient was taken directly to the CT scanner which revealed a large subdural hematoma with shift. She was brought back to the resuscitation bay and underwent RSI using etomidate and rocuronium. A 7-07/06 endotracheal tube was placed on the first attempt without any difficulty. This was secured into place and position confirmed by auscultation, capnography, and my interpretation of the post intubation x-ray is adequate positioning. Family was updated and the patient was accepted to [facility]. We are currently working on aircraft to take her. She is being sedated with propofol. Blood pressures have been stable around 121/75. Lab Data Attestation: I reviewed the patient's lab results. Labs: Laboratory Results - last 24 hr 01/08/22 01/08/22 01/08/22 11:35 11:35 11:35 WBC 11.3 H RBC 3.24 L Hgb 9.4 L Hct 30.5 L MCV 94.1 MCH 29.0 MCHC 30.8 L RDW Std Deviation 43.4 RDW Coeff of Deonte 12.6 Plt Count 197 MPV 10.0 Immature Gran % (Auto) 0.500 Neut % (Auto) 79.8 H Lymph % (Auto) 13.0 L Zapata % (Auto) 6.2 Eos % (Auto) 0.1 Baso % (Auto) 0.4 Absolute Neuts (auto) 9.1 H Absolute Lymphs (auto) 1.47 Nucleated RBC % 0 PT 13.5 INR 1.1 APTT 26.7 Sodium 138 Potassium 4.3 Chloride 100 Carbon Dioxide 33.0 H Anion Gap 5 BUN 27 H Creatinine 0.76 Estim Creat Clear Calc 45.16 Est GFR (MDRD) Af Amer 98 Est GFR (MDRD) Non-Af 81 BUN/Creatinine Ratio 35.5 H Glucose 105 Lactic Acid Calcium 9.3 Total Bilirubin 0.70 AST 30 ALT 47 Alkaline Phosphatase 122 H Troponin I High Sens 25 Total Protein 7.0 Albumin 3.4 Globulin 3.6 Albumin/Globulin Ratio 0.9 Lipase 51 L Urine Color Urine Clarity Urine pH Ur Specific [place] Urine Protein Urine Glucose (UA) Urine Ketones Urine Occult Blood Urine Nitrite Urine Bilirubin Urine Urobilinogen Ur Leukocyte Esterase Urine RBC Urine WBC Ur Squamous Epith Cells Urine Bacteria Urine Mucus Urine Opiates Screen Urine Methadone Screen Ur Barbiturates Screen Ur Phencyclidine Scrn Ur Amphetamines Screen MDMA (Ecstasy) Screen U Benzodiazepines Scrn Urine Cocaine Screen U Cannabinoids Screen Ur Drug Screen Comment Ethyl Alcohol 01/08/22 01/08/22 01/08/22 11:35 12:00 12:21 WBC RBC Hgb Hct MCV MCH MCHC RDW Std Deviation RDW Coeff of Deonte Plt Count MPV Immature Gran % (Auto) Neut % (Auto) Lymph % (Auto) Zapata % (Auto) Eos % (Auto) Baso % (Auto) Absolute Neuts (auto) Absolute Lymphs (auto) Nucleated RBC % PT INR APTT Sodium Potassium Chloride Carbon Dioxide Anion Gap BUN Creatinine Estim Creat Clear Calc Est GFR (MDRD) Af Amer Est GFR (MDRD) Non-Af BUN/Creatinine Ratio Glucose Lactic Acid 1.0 Calcium Total Bilirubin AST ALT Alkaline Phosphatase Troponin I High Sens Total Protein Albumin Globulin Albumin/Globulin Ratio Lipase Urine Color Yellow Urine Clarity Clear Urine pH 5.0 Ur Specific [place] 1.020 Urine Protein 30 H Urine Glucose (UA) Normal Urine Ketones 150 A* Urine Occult Blood 25 H Urine Nitrite Negative Urine Bilirubin Negative Urine Urobilinogen Normal Ur Leukocyte Esterase Negative Urine RBC 0-5 SEEN Urine WBC 0 SEEN Ur Squamous Epith Cells 0-5 SEEN Urine Bacteria 0 SEEN Urine Mucus 0 SEEN Urine Opiates Screen Urine Methadone Screen Ur Barbiturates Screen Ur Phencyclidine Scrn Ur Amphetamines Screen MDMA (Ecstasy) Screen U Benzodiazepines Scrn Urine Cocaine Screen U Cannabinoids Screen Ur Drug Screen Comment Ethyl Alcohol < 3.0 01/08/22 12:21 WBC RBC Hgb Hct MCV MCH MCHC RDW Std Deviation RDW Coeff of Deonte Plt Count MPV Immature Gran % (Auto) Neut % (Auto) Lymph % (Auto) Zapata % (Auto) Eos % (Auto) Baso % (Auto) Absolute Neuts (auto) Absolute Lymphs (auto) Nucleated RBC % PT INR APTT Sodium Potassium Chloride Carbon Dioxide Anion Gap BUN Creatinine Estim Creat Clear Calc Est GFR (MDRD) Af Amer Est GFR (MDRD) Non-Af BUN/Creatinine Ratio Glucose Lactic Acid Calcium Total Bilirubin AST ALT Alkaline Phosphatase Troponin I High Sens Total Protein Albumin Globulin Albumin/Globulin Ratio Lipase Urine Color Urine Clarity Urine pH Ur Specific [place] Urine Protein Urine Glucose (UA) Urine Ketones Urine Occult Blood Urine Nitrite Urine Bilirubin Urine Urobilinogen Ur Leukocyte Esterase Urine RBC Urine WBC Ur Squamous Epith Cells Urine Bacteria Urine Mucus Urine Opiates Screen POSITIVE H Urine Methadone Screen NEGATIVE Ur Barbiturates Screen NEGATIVE Ur Phencyclidine Scrn NEGATIVE Ur Amphetamines Screen NEGATIVE MDMA (Ecstasy) Screen NEGATIVE U Benzodiazepines Scrn POSITIVE H Urine Cocaine Screen NEGATIVE U Cannabinoids Screen NEGATIVE Ur Drug Screen Comment Ethyl Alcohol Radiography Diagnostic Testing: Clinical Impression(s) from Imaging Studies Brain CT 01/08/22 11:42 IMPRESSION: Moderate size acute on chronic subdural hematoma overlying the right frontal temporoparietal and occipital lobes with shift of the midline from right to left measuring 1.2 cm. Stable encephalomalacia of the right occipital lobe and the superior posterior left parietal occipital lobe. N.B. : The above Results were Read Back by Vinny Mcghee MD to Patel Hurd MD, and understanding confirmed on 01/08/2022 12:15:21 (ET). Electronically Signed: Vinny Mcghee MD at 12:16 EDT , ADDENDUM: 01/08/22 1223 IMPRESSION: Moderate size acute on chronic subdural hematoma overlying the right frontal temporoparietal and occipital lobes with shift of the midline from right to left measuring 1.2 cm. Stable encephalomalacia of the right occipital lobe and the superior posterior left parietal occipital lobe. N.B. : The above Results were Read Back by Vinny Mcghee MD to Patel Hurd MD, and understanding confirmed on 01/08/2022 12:15:21 (ET). Electronically Signed: Vinny Mcghee MD at 12:16 EDT , Chest X-Ray 01/08/22 11:53 IMPRESSION: Hyperinflation. The lungs are clear. Electronically Signed: Vinny Mcghee MD at 12:17 EDT , Chest X-Ray 01/08/22 12:35 IMPRESSION: The tip of the endotracheal tube is at the level of the tracheal bifurcation. It should be pulled back approximately 3.5 cm. The tip of the nasogastric tube lies below the left hemidiaphragm. Electronically Signed: Vinny Mcghee MD at 12:52 EDT , EKG Initial EKG: Attestation: I personally reviewed and interpreted this EKG as follows: Comments: Normal sinus rhythm with a ventricular rate of 89 bpm Critical Care Time Critical Care Time: Yes Critical care time (excluding procedures): 30-74 minutes (35 min), Including time spent:, Discussing w/Patient &/or Family/Joss House Keeper, Discussing w/Consultants, Arranging Admission or Transfer and Performing Direct Patient Care at Bedside Discharge Plan Triage Chief Complaint: Unresponsive ED Provider: Patel Hurd Dx/Rx/DC Orders Clinical Impression: Subdural hematoma, Respiratory failure Prescriptions: No Action albuterol sulfate [Ventolin HFA] 90 mcg/actuation HFA aerosol inhaler 2 puff inhalation Q4H PRN (Reason: shortness of breath or wheezing) Qty: 18 6RF [id number] 100-62.5-25 mcg blister with device 1 inh inhalation DAILY Qty: 60 3RF escitalopram oxalate [Lexapro] 10 mg tablet 10 mg PO DAILY mecobalamin (vitamin B12) 5,000 mcg tablet,disintegrating 5,000 mcg PO DAILY zolpidem 10 mg tablet 10 mg PO QHS PRN (Reason: Sleep) losartan 25 mg tablet 25 mg PO DAILY spironolactone 25 mg Tablet 12.5 mg PO DAILY Hold Instructions: symptoms of low blood pressure 12/02/21 Label Comments: on hold until instructed to resume pantoprazole [Protonix] 40 mg Tablet,Delayed Release (Dr/Ec) 40 mg PO DAILY ropinirole 0.5 mg Tablet 0.5 mg PO QHS folic acid 1 mg Tablet 1 mg PO DAILY aspirin 81 mg Tablet 81 mg PO DAILY duloxetine 60 mg Capsule,Delayed Release(Dr/Ec) 60 mg PO DAILY cholecalciferol (vitamin D3) [Vitamin D3] 25 mcg (1,000 unit) Tablet 25 mcg PO DAILY potassium chloride 20 mEq Tablet Extended Release 20 meq PO DAILY albuterol sulfate 1.25 mg/3 mL Solution For Nebulization 1.25 mg INHALATION Q4H PRN (Reason: Shortness Of Breath Or Wheezing) hydroxyzine pamoate [Vistaril] 25 mg capsule 25 mg PO BID PRN (Reason: itching) Qty: 20 0RF carvedilol 12.5 mg tablet 12.5 mg PO BID Qty: 60 11RF Primary Care Provider: Maryam Pineda Referrals: Maryam Pineda MD [Primary Care Provider] - Disposition Disposition: Acute Care Hospital Discharge Location: [facility]
[2022-01-08 12:24] LABS: International Normalized Ratio 1.1; Prothrombin Time (Protime)PT. 13.5 SECONDS (11.7-14.9)
[2022-01-08 12:24] LABS: Bacteria 0 SEEN /hpf (None Seen); Mucous, Urine 0 SEEN /hpf (<or=2+); White Blood Cells 0 SEEN /hpf (0-5)
[2022-01-08 12:25] LABS: Partial Thromboplast Time 26.7 Seconds (24.1-36.2)
[2022-01-08 12:26] LABS: Color, Urine Yellow (Yellow); Glucose, Dipstick Normal (Normal); Leukocyte Esterase-Dipstick Negative /ul (Negative); Nitrite-Dipstick Negative (Negative); Occult Blood-Urine 25 /ul (Negative); Protein-Dipstick 30 mg/dl (Negative); Urine Bilirubin Dipstick Negative (Negative); Urine Clarity Clear (Clear); Urine Urobilinogen Normal (Normal)
[2022-01-08 12:28] LABS: Ketone-Dipstick 150 mg/dl (Negative)
[2022-01-08 12:33] LABS: ALB/GLOB Ratio 0.9 RATIO (0.9-2.4); AST(SGOT) 30 U/L (15-37); Alanine Aminotransfer ALT/SGPT 47 U/L (13-56); Albumin, Serum 3.4 g/dL (3.2-5.0); Alkaline Phosphatase 122 U/L (45-117); Anion Gap 5 (5-15); BUN 27 mg/dL (7-18); BUN/Creat Ratio 35.5 RATIO (10-20); Calcium,Total 9.3 mg/dL (8.5-10.1); Chloride 100 mmol/L (98-107); Creatinine, Serum 0.76 mg/dL (0.55-1.02); EST Glomerular Filtration Rate 81 mL/min (>60); Est Glom Filt Rate - Afr Amer 98 mL/min (>60); Estimated Creatinine Clearance 45.16 ml/min; Globulin 3.6 g/dL (2.2-4.2); Glucose 105 mg/dL (74-106); Lipase 51 U/L (73-393); Potassium 4.3 mmol/L (3.5-5.1); Sodium Level 138 mmol/L (136-145); Troponin-I HS 25 pg/mL (3.0-54.0)
[2022-01-08] MEDS: 0.9% Normal Saline 1,000 ML 150 ML IV (12:34)
[2022-01-08] MEDS: Rocuronium Bromide 50 MG/5 ML Vial IV (12:35)
[2022-01-08] MEDS: Etomidate 20 MG/10 ML Vial IV (12:35)
--- NOTE | 2022-01-08 12:35 | RAD_ITS ---
STUDY: X-RAY CHEST REASON FOR EXAM: Female, 66 years old. Intubation TECHNIQUE: Single AP portable view of the chest. COMPARISON: Comparison is made with prior study done earlier today. FINDINGS: An endotracheal tube is in situ. The tip is at the level of the tracheal bifurcation. It should be pulled back approximately 3.5 cm. The tip of the nasogastric tube is below the left hemidiaphragm. RAD/Chest 1 View (Portable) IMPRESSION: The tip of the endotracheal tube is at the level of the tracheal bifurcation. It should be pulled back approximately 3.5 cm. The tip of the nasogastric tube lies below the left hemidiaphragm. Electronically Signed: Vinny Mcghee MD at 12:52 EDT ,
[2022-01-08 12:36] VITALS: BP 121/75; PULSE 87; RESP 14; O2SAT 99
[2022-01-08 12:37] LABS: Alcohol, Blood (Medical)-Serum < 3.0 mg/dL
[2022-01-08 12:40] LABS: Red Blood Cells-Urine 0-5 SEEN /hpf (0-5); Squamous Epithelial Cells - UA 0-5 SEEN /hpf (5-10)
[2022-01-08 12:44] LABS: Amphetamine Urine VISTA NEGATIVE (<1000 ng/mL); Barbiturate Urine VISTA NEGATIVE (< 200 ng/mL); Benzodiazepine Urine VISTA POSITIVE (< 200 ng/mL); Cocaine Urine VISTA NEGATIVE (< 300 ng/mL); Ecstacy Urine VISTA NEGATIVE (< 500 ng/mL); Methadone Urine VISTA NEGATIVE (< 300 ng/mL); PCP Urine VISTA NEGATIVE (< 25 ng/mL); THC Urine VISTA NEGATIVE (< 50 ng/mL); Vista UDS pH Range 5
--- NOTE | 2022-01-08 12:44 | NURSING ---
SPOKE WITH JOSE FROM [employer], JOSE WILL BE CALLING BACK WITH JULITA. FACESHEET FAXED AT THIS TIME
[2022-01-08 12:49] VITALS: BP 142/74; PULSE 95; RESP 14; TEMP 35.9; O2SAT 100
[2022-01-08] MEDS: Propofol 10MG/Ml 1,000 MG/100 ML Bottle 3.8 MG CONT INF (12:49)
--- NOTE | 2022-01-08 13:15 | ED.RN ---
dipirvan 1000mg/100 ml bottle given to flight crew at there request for transport. ed dr consulted about flight md request for Keppra. no additional [place] [id number]
[2022-01-08 13:18] VITALS: BP 95/85; PULSE 79; RESP 14; O2SAT 100
== END 2022-01-08 13:34 | disposition short-term general hospital (02) ==
PROVIDERS: Emergency Provider Emergency Medicine; PCP Internal Medicine; Visit Provider Emergency Medicine
DX: I62.00 Nontraumatic subdural hemorrhage, unspecified (principal); J44.9 Chronic obstructive pulmonary disease, unspecified; I11.0 Hypertensive heart disease with heart failure; I50.22 Chronic systolic (congestive) heart failure; I42.8 Other cardiomyopathies; J96.90 Respiratory failure, unspecified, unspecified whether with hypoxia or hypercapnia; E78.5 Hyperlipidemia, unspecified; Z87.891 Personal history of nicotine dependence; R31.9 Hematuria, unspecified; I25.2 Old myocardial infarction; Z86.73 Personal history of transient ischemic attack (TIA), and cerebral infarction without residual deficits; G47.33 Obstructive sleep apnea (adult) (pediatric); Z79.82 Long term (current) use of aspirin; Z79.899 Other long term (current) drug therapy
CPT/HCPCS: 31500; 51702; 70450; 71045; 80053; 80307; 81001; 82077; 83605; 83690; 84484; 85025; 85610; 85730; 93005; 94002; 99251; 99285; J7030; A4216; G0463

== ENCOUNTER 2022-02-26 16:43 | Emergency (ER) | payer MEDICARE, SELFPAY ==
[2022-02-26 16:44] VITALS: BP 132/105; PULSE 106; RESP 18; TEMP 37.2; O2SAT 98; BMI 23.0
--- NOTE | 2022-02-26 16:58 | EX.ED.DYSGE1 ---
HPI History of Present Illness Chief Complaint: Lower Extremity Injury Detail of Chief Complaint: Abnormal lower extremity movement and swelling Informant: patient and spouse/S.O. Onset/Context/Timing Onset: Today Context: Sudden Onset Timing: Intermittent Quality: Abnormal rhythmic movement right and left foot Location: Right and left foot Current Severity: Mild Maximum Severity: Mild Worsened by: Nothing Relieved by: Nothing Associated Symptoms Associated Symptoms: None presently. states she was swollen. Narrative Narrative: Patient is a six 6-year-old woman who was life flighted to [facility] January 23 for large acute on chronic right temporal frontal, parietal and occipital subdural hematoma with 1.2 cm shift. She was intubated. She underwent craniotomy. She now presents because of movement right and left foot that is been intermittent. Duration of foot movement 2 to 3 seconds. There is no movement of her upper extremities. There is no loss of conscious. Prior similar symptoms: No Recent Illness/Hospitalization: Yes (Large right subdural hematoma) [facility] Medical History Alcohol abuse Anxiety Anxiety and depression Chronic anemia Chronic systolic (congestive) heart failure CO2 narcosis Congestive heart failure (CHF) COPD (chronic obstructive pulmonary disease) Daytime hypersomnia Essential (primary) hypertension Fall GERD (gastroesophageal reflux disease) Head concussion Hemorrhagic cerebrovascular accident (CVA) (02/09/17) History of DVT of lower extremity (02/11/17) History of non-ST elevation myocardial infarction (NSTEMI) (02/03/17) Hypercarbia Hyperlipidemia Insomnia Ischemic cerebrovascular accident (CVA) (02/06/17) Non-ischemic cardiomyopathy Non-rheumatic mitral regurgitation TIO (obstructive sleep apnea) Respiratory insufficiency Secondary pulmonary arterial hypertension Stroke Takotsubo cardiomyopathy (06/17/21) TIA (transient ischemic attack) (10/25/19) Weakness due to old stroke Home Medications aspirin 81 mg tablet 81 mg PO DAILY heart health 11/03/20 [History Last Taken Unknown] cholecalciferol (vitamin D3) 25 mcg (1,000 unit) tablet (Vitamin D3) 25 mcg PO DAILY supplement 11/03/20 [History Last Taken Unknown] duloxetine 60 mg capsule,delayed release 60 mg PO DAILY depression 11/03/20 [History Last Taken Unknown] folic acid 1 mg tablet 1 mg PO DAILY supplement 11/03/20 [History Last Taken Unknown] pantoprazole 40 mg tablet,delayed release (Protonix) 40 mg PO DAILY GERD 11/03/20 [History Last Taken Unknown] potassium chloride 20 mEq tablet,extended release 20 meq PO DAILY supplement 11/03/20 [History Last Taken Unknown] ropinirole 0.5 mg tablet 0.5 mg PO QHS RLS 11/03/20 [History Last Taken Unknown] spironolactone 25 mg tablet 12.5 mg PO DAILY BP 11/03/20 [History Last Taken Unknown] albuterol sulfate 90 mcg/actuation aerosol inhaler (Ventolin HFA) 2 puff inhalation Q4H PRN shortness of breath or wheezing #18 grams 12/23/20 [Rx Last Taken Unknown] fluticasone fur. 100 mcg-umeclid 62.5 mcg-vilant 25 mcg inhalat.powder 1 inh inhalation DAILY COPD #60 ea 12/23/20 [Rx Last Taken Unknown] albuterol sulfate 1.25 mg/3 mL solution for nebulization 1.25 mg inhalation Q4H PRN Shortness Of Breath Or Wheezing 06/15/21 [History Last Taken Unknown] escitalopram oxalate 10 mg tablet (Lexapro) 10 mg PO DAILY 07/07/21 [History Last Taken Unknown] mecobalamin (vitamin B12) 5,000 mcg disintegrating tablet 5,000 mcg PO DAILY 07/07/21 [History Last Taken Unknown] carvedilol 12.5 mg tablet 12.5 mg PO BID BP #60 tabs 09/10/21 [Rx Last Taken Unknown] losartan 25 mg tablet 25 mg PO DAILY 12/02/21 [History Last Taken Unknown] zolpidem 10 mg tablet 10 mg PO QHS PRN Sleep 12/02/21 [History Last Taken Unknown] hydroxyzine pamoate 25 mg capsule (Vistaril) 25 mg PO BID PRN itching #20 caps 12/06/21 [Rx Last Taken Unknown] prednisone 20 mg tablet 60 mg PO DAILY #15 TABLETS 02/26/22 [Rx Last Taken Unknown] Allergy/AdvReac Type Severity Reaction Status Date / Time tetanus and diphtheria Allergy Hives Verified 01/08/22 12:26 toxoids [tetanus & diphtheria toxoids] Family History Sister Cancer lung Father Cancer lung Mother Cancer lung Surgical History H/O: section History of bilateral cataract extraction History of cholecystectomy History of left heart catheterization (06/17/21) History of lumpectomy Hx of appendectomy Social History household members: none Smoking Status: Former smoker how long ago did patient quit smokin, 1pk/day second hand exposure: Yes alcohol intake: former substance use type: does not use what type of physical activity do you participate in: walking frequency: daily ROS ROS ED Review of Systems ROS Unobtainable: other Details: Impaired memory Constitutional Constitutional ED: Denies chills, fever(s), subjective, sweats or weight loss Eyes Eyes: Denies blurry vision, change in vision or diplopia ENT ENT ED: Denies ear pain, rhinorrhea or sore throat Cardiovascular Cardiovascular: Denies chest pain, orthopnea, palpitations or racing heartbeat Respiratory/Chest Respiratory/Chest: Denies cough, dyspnea, dyspnea on exertion or orthopnea Gastrointestinal Gastrointestinal: Denies abdominal pain, nausea or vomiting Genitourinary Genitourinary ED: Denies dysuria, hematuria or urinary frequency Musculoskeletal Musculoskeletal: Denies arthralgias, back pain, myalgias or neck pain Integumentary Reports other Details: Healing craniotomy incision ; Denies abscess, Abrasions or rash Neurologic Neurologic: Reports weakness; Denies headache(s) or paresthesias Psychiatric Psychiatric: Reports depression; Denies anxiety Hematologic/Lymphatic Hematologic/Lymphatic: Denies easy bleeding, easy bruising or lymphadenopathy EXAM Physical Exam Const Vital Signs: 02/26/22 16:44 02/26/22 18:30 02/26/22 18:39 Temperature 98.9 F Temperature Source Temporal Pulse Rate 106 H 103 H 97 Respiratory Rate 18 18 18 Blood Pressure 132/105 H 136/71 H Blood Pressure Mean 114 92 Pulse Ox 98 94 Oxygen Delivery Method Nasal Cannula Room Air Oxygen Flow Rate (L/min) 2 Positive well nourished and well developed General Appearance ED: well developed and NAD; Negative for cyanotic, diaphoretic or pallor HEENT Reports moist mucous membranes HEENT Narrative: Healing right craniotomy incision with eschar. There is no evidence infection. Ears normal. Nares patent. Mucosa slightly dry. Uvula midline. No deviation of tongue with protrusion. Eyes PERRL and EOMs intact bilaterally Eyes Narrative: There is no nystagmus. Conjunctive is pink. Sclera is anicteric. Neck no lymphadenopathy, supple and no JVD Resp normal respiratory effort and clear to auscultation bilaterally Cardio regular rate, regular rhythm, S1 normal heart sound, S2 normal heart sound and no murmurs GI normal to inspection, nondistended, normoactive bowel sounds, non-tender, non-distended and no masses; Negative for hepatosplenomegaly Back/Spine no CVA tenderness Cervical Spine: Negative for cervical spine tenderness Thoracic Spine / Upper Back: Negative for thoracic spinal tenderness Extremity normal to inspection Extremity Narrative: There is no swelling, asymmetry, discoloration. There is no leg vein distention. There is no tenderness. There is no effusion of the right or left ankle. While I was in the room there was 3-4 beats of dorsi plantarflexion of the right foot. DP and PT pulse are palpable. Neuro oriented x3, CN's II-XII intact bilaterally and no sensory deficits noted Sensorium / Orientation: alert Motor Exam: general weakness Psych Psych Narrative: Depressed mood flat affect Skin no rashes or lesions noted Skin Narrative: Healing craniotomy incision on the right General Skin Exam: Negative for jaundice or pallor MDM MDM MDM Narrative Medical decision making narrative: Uncertain what this rhythmic movement may represent. Doubt seizures since it is bilateral. I was informed at 1826 that patient was short of breath moving from bed to commode. Patient does have history of COPD. Will order DuoNeb. Also will obtain chest x-ray. If there is no neurologic noted on chest x-ray and the DuoNeb and if there is no improvement after DuoNeb therapy will evaluate for pulmonary embolus since she recently had surgery and was immobile. Patient was reassessed at 2014. Patient's breathing has improved markedly. She was discharged on a burst of prednisone. She is noted to have blepharospasm. She was instructed follow-up with ophthalmology and most likely treatment is Botox injection. Lab Data Labs: Laboratory Results - last 24 hr 02/26/22 02/26/22 17:05 17:05 WBC 9.3 RBC 3.84 L Hgb 10.0 L Hct 33.5 L MCV 87.2 MCH 26.0 L MCHC 29.9 L RDW Std Deviation 49.7 H RDW Coeff of Deonte 15.5 H Plt Count 332 MPV 9.3 Immature Gran % (Auto) 0.400 Neut % (Auto) 58.6 Lymph % (Auto) 27.3 Trinity % (Auto) 8.8 Eos % (Auto) 4.5 Baso % (Auto) 0.4 Absolute Neuts (auto) 5.5 Absolute Lymphs (auto) 2.55 Nucleated RBC % 0 Sodium 142 Potassium 3.7 Chloride 105 Carbon Dioxide 32.0 Anion Gap 5 BUN 10 Creatinine 0.70 Estim Creat Clear Calc 45.16 Est GFR (MDRD) Af Amer 108 Est GFR (MDRD) Non-Af 89 BUN/Creatinine Ratio 14.3 Glucose 87 Calcium 9.4 Radiography Chest X-Ray - ED: 2 View and Read by ED Physician (Independently reviewed and interpreted by me at 2013. There is no infiltrate. No pneumothorax. Cardiac silhouette and size unremarkable. Perihilar region unremarkable. There is chronic changes noted. Osseous structures are unremarkable.) Discharge Plan Triage Chief Complaint: Lower Extremity Injury ED Provider: Kimo Sims Dx/Rx/DC Orders Clinical Impression: Muscle twitching, Blepharospasm, COPD exacerbation Instructions: Muscle Spasm, ED COPD Flare Prescriptions: New prednisone 20 mg tablet 60 mg PO DAILY Qty: 15 0RF No Action albuterol sulfate [Ventolin HFA] 90 mcg/actuation HFA aerosol inhaler 2 puff inhalation Q4H PRN (Reason: shortness of breath or wheezing) Qty: 18 6RF nzucpzmeefn-uzswvrovk-ewsmhwmg 100-62.5-25 mcg blister with device 1 inh inhalation DAILY Qty: 60 3RF escitalopram oxalate [Lexapro] 10 mg tablet 10 mg PO DAILY mecobalamin (vitamin B12) 5,000 mcg tablet,disintegrating 5,000 mcg PO DAILY zolpidem 10 mg tablet 10 mg PO QHS PRN (Reason: Sleep) losartan 25 mg tablet 25 mg PO DAILY spironolactone 25 mg Tablet 12.5 mg PO DAILY Hold Instructions: symptoms of low blood pressure 12/02/21 Label Comments: on hold until instructed to resume pantoprazole [Protonix] 40 mg Tablet,Delayed Release (Dr/Ec) 40 mg PO DAILY ropinirole 0.5 mg Tablet 0.5 mg PO QHS folic acid 1 mg Tablet 1 mg PO DAILY aspirin 81 mg Tablet 81 mg PO DAILY duloxetine 60 mg Capsule,Delayed Release(Dr/Ec) 60 mg PO DAILY cholecalciferol (vitamin D3) [Vitamin D3] 25 mcg (1,000 unit) Tablet 25 mcg PO DAILY potassium chloride 20 mEq Tablet Extended Release 20 meq PO DAILY albuterol sulfate 1.25 mg/3 mL Solution For Nebulization 1.25 mg INHALATION Q4H PRN (Reason: Shortness Of Breath Or Wheezing) hydroxyzine pamoate [Vistaril] 25 mg capsule 25 mg PO BID PRN (Reason: itching) Qty: 20 0RF carvedilol 12.5 mg tablet 12.5 mg PO BID Qty: 60 11RF Primary Care Provider: Maryam Pineda Referrals: Maryam Pineda MD [Primary Care Provider] - 1 Week Disposition Disposition: Home, Self Care
[2022-02-26 17:30] LABS: Absolute Lymphocyte Count 2.55 X10^3/uL (0.83-4.51); Absolute Neutrophil Count 5.5 X10^3/uL (2.0-7.7); Basophil# 0.04 X10^3/uL; Basophil% 0.4 % (0-1); Eosinophil# 0.42 X10^3/uL; Eosinophils% 4.5 % (0-5); Hematocrit 33.5 % (37-47); Lymphocyte # 2.55 X10^3/ul (0.83-4.51); Lymphocyte % 27.3 % (19-41); Mean Corp Hgb Conc 29.9 g/dL (32-36); Mean Corpuscular Volume 87.2 fL (81-99); Mean Platelet Vol. 9.3 fl (6.2-12.0); Monocyte# 0.82 X10^3/uL; Monocyte% 8.8 % (0-10); NRBC Flagged by Analyzer 0 % (0-5); Neutrophil # 5.46 X10^3/uL (2.7-7.7); Neutrophil % 58.6 % (47-70); Platelet Count 332 K/mm3 (150-450); RBC Distribution Width CV 15.5 % (11.6-14.6); RBC Distribution Width SD 49.7 fl (35.1-43.9); Red Blood Count 3.84 M/mm3 (4.2-5.4); White Blood Count 9.3 K/mm3 (4.4-11.0)
[2022-02-26 17:42] LABS: Anion Gap 5 (5-15); BUN 10 mg/dL (7-18); BUN/Creat Ratio 14.3 RATIO (10-20); Calcium,Total 9.4 mg/dL (8.5-10.1); Chloride 105 mmol/L (98-107); EST Glomerular Filtration Rate 89 mL/min (>60); Est Glom Filt Rate - Afr Amer 108 mL/min (>60); Estimated Creatinine Clearance 45.16 ml/min; Glucose 87 mg/dL (74-106); Potassium 3.7 mmol/L (3.5-5.1); Sodium Level 142 mmol/L (136-145)
[2022-02-26 18:30] VITALS: BP 136/71; PULSE 103; RESP 18; O2SAT 94
[2022-02-26] MEDS: Ipratropium/Albuterol Sulfate 3 ML AMPUL.NEB INHALATION (18:38)
[2022-02-26 18:39] VITALS: PULSE 97; RESP 18
--- NOTE | 2022-02-26 19:30 | RAD_ITS ---
STUDY: X-RAY CHEST REASON FOR EXAM: Female, 66 years old. Dyspnea, history of COPD TECHNIQUE: PA and lateral views of the chest. COMPARISON: September 30, 2021 FINDINGS: Lungs are hyperexpanded. There are mild interstitial increased opacities. There is no demonstrated pleural abnormality. Normal size heart. Normal mediastinum and jacinto. Normal visualized pulmonary arteries. Normal visualized aortic arch and descending thoracic aorta. There is demineralization of the osseous structures. There is mild compression fracture of the lower thoracic spine. Normal visualized ribs, clavicles, and shoulders. There is no demonstrated abnormality of the visualized soft tissue structures of the upper abdomen. RAD/Chest PA and Lateral IMPRESSION: Degenerative changes, as described above. No demonstrated acute cardiopulmonary process. Electronically Signed: Yunior Aldridge MD at 21:06 EDT ,
== END 2022-02-26 20:36 | disposition home or self-care (01) ==
PROVIDERS: Emergency Provider Emergency Medicine; PCP Internal Medicine; Visit Provider Emergency Medicine
DX: M79.89 Other specified soft tissue disorders (principal); J44.9 Chronic obstructive pulmonary disease, unspecified; I11.0 Hypertensive heart disease with heart failure; I50.22 Chronic systolic (congestive) heart failure; E78.5 Hyperlipidemia, unspecified; Z87.891 Personal history of nicotine dependence; G47.33 Obstructive sleep apnea (adult) (pediatric); I25.2 Old myocardial infarction; Z86.73 Personal history of transient ischemic attack (TIA), and cerebral infarction without residual deficits; Z86.718 Personal history of other venous thrombosis and embolism
CPT/HCPCS: 71046; 80048; 85025; 94640; 99281

== ENCOUNTER 2022-03-19 08:10 | Emergency (ER) | payer MEDICARE, SELFPAY ==
[2022-03-19 08:13] VITALS: BP 122/63; PULSE 108; RESP 17; TEMP 36.4; O2SAT 94; BMI 23.8
--- NOTE | 2022-03-19 08:37 | CT_ITS ---
STUDY: CT ABDOMEN AND PELVIS WITHOUT CONTRAST REASON FOR EXAM: Female, 66 years old. Back pain. Elevated d-dimer. History of right breast carcinoma with lumpectomy. RADIATION DOSAGE (If Supplied By Facility): CTDIvol = ( 11.17 ) mGy, DLP = ( 721.71 ) mGycm TECHNIQUE: Transaxial images were obtained from the dome of the diaphragm to the symphysis pubis without oral contrast, and without intravenous contrast. Sagittal and coronal images were reconstructed. Individualized dose optimization techniques were used for this CT. COMPARISON: Comparison is made with prior study dated 09/23/2021. FINDINGS: The visualized lung bases are unremarkable. The visualized portions of the heart are within normal limits. Normal liver. There are surgical clips in the gallbladder fossa consistent with a prior cholecystectomy. Normal spleen. Normal pancreas. Normal bilateral adrenal glands. Normal right kidney. Normal left kidney. There is a small hiatal hernia. Normal small intestine. Normal colon. The appendix is visualized and appears normal. There is diffuse atherosclerotic calcification of the abdominal aorta, without a demonstrated aneurysm. Normal inferior vena cava. Normal retroperitoneum. Normal urinary bladder. There is a 2.3 cm x 2.2 cm cyst in the left ovary. Normal abdominal wall. Normal osseous structures. CT/Abdomen/Pelvis without Cont IMPRESSION: 2.3 cm x 2.2 cm cyst in the left ovary. Electronically Signed: Vinny Mcghee MD at 10:16 EDT ,
--- NOTE | 2022-03-19 08:42 | ED.VIS.BACK ---
HPI History of Present Illness Chief Complaint: Back Detail of Chief Complaint: Back pain that started about an hour ago Informant: patient Narrative Narrative: Patient presents with upper back pain that started about an hour ago. She was sitting at the time. No injury recalled. She states that the pain started in her upper back mostly on the right side and would radiate down the back and down the right leg to about the ankle. She is never had pain like that before. Pain worse with movement. She denies chest pain. She is somewhat short of breath but has history of COPD. She denies recent travel or surgery. Patient currently rates her pain an 8 out of 10. She denies loss of bowel or bladder function. She denies weakness of the extremities. Prior similar symptoms: No PFSH PFS Medical History Alcohol abuse Anxiety Anxiety and depression Chronic anemia Chronic systolic (congestive) heart failure CO2 narcosis Congestive heart failure (CHF) COPD (chronic obstructive pulmonary disease) Daytime hypersomnia Essential (primary) hypertension Fall GERD (gastroesophageal reflux disease) Head concussion Hemorrhagic cerebrovascular accident (CVA) (02/09/17) History of DVT of lower extremity (02/11/17) History of non-ST elevation myocardial infarction (NSTEMI) (02/03/17) Hypercarbia Hyperlipidemia Insomnia Ischemic cerebrovascular accident (CVA) (02/06/17) Non-ischemic cardiomyopathy Non-rheumatic mitral regurgitation TIO (obstructive sleep apnea) Respiratory insufficiency Secondary pulmonary arterial hypertension Stroke Takotsubo cardiomyopathy (06/17/21) TIA (transient ischemic attack) (10/25/19) Weakness due to old stroke Home Medications aspirin 81 mg tablet 81 mg PO DAILY heart health 11/03/20 [History Last Taken Unknown] cholecalciferol (vitamin D3) 25 mcg (1,000 unit) tablet (Vitamin D3) 25 mcg PO DAILY supplement 11/03/20 [History Last Taken Unknown] duloxetine 60 mg capsule,delayed release 60 mg PO DAILY depression 11/03/20 [History Last Taken Unknown] folic acid 1 mg tablet 1 mg PO DAILY supplement 11/03/20 [History Last Taken Unknown] pantoprazole 40 mg tablet,delayed release (Protonix) 40 mg PO DAILY GERD 11/03/20 [History Last Taken Unknown] potassium chloride 20 mEq tablet,extended release 20 meq PO DAILY supplement 11/03/20 [History Last Taken Unknown] ropinirole 0.5 mg tablet 0.5 mg PO QHS RLS 11/03/20 [History Last Taken Unknown] spironolactone 25 mg tablet 12.5 mg PO DAILY BP 11/03/20 [History Last Taken Unknown] albuterol sulfate 90 mcg/actuation aerosol inhaler (Ventolin HFA) 2 puff inhalation Q4H PRN shortness of breath or wheezing #18 grams 12/23/20 [Rx Last Taken Unknown] fluticasone fur. 100 mcg-umeclid 62.5 mcg-vilant 25 mcg inhalat.powder 1 inh inhalation DAILY COPD #60 ea 12/23/20 [Rx Last Taken Unknown] albuterol sulfate 1.25 mg/3 mL solution for nebulization 1.25 mg inhalation Q4H PRN Shortness Of Breath Or Wheezing 06/15/21 [History Last Taken Unknown] escitalopram oxalate 10 mg tablet (Lexapro) 10 mg PO DAILY 07/07/21 [History Last Taken Unknown] mecobalamin (vitamin B12) 5,000 mcg disintegrating tablet 5,000 mcg PO DAILY 07/07/21 [History Last Taken Unknown] carvedilol 12.5 mg tablet 12.5 mg PO BID BP #60 tabs 09/10/21 [Rx Last Taken Unknown] losartan 25 mg tablet 25 mg PO DAILY 12/02/21 [History Last Taken Unknown] zolpidem 10 mg tablet 10 mg PO QHS PRN Sleep 12/02/21 [History Last Taken Unknown] hydroxyzine pamoate 25 mg capsule (Vistaril) 25 mg PO BID PRN itching #20 caps 12/06/21 [Rx Last Taken Unknown] prednisone 20 mg tablet 60 mg PO DAILY #15 TABLETS 02/26/22 [Rx Last Taken Unknown] hydrocodone-acetaminophen 5-325mg 5mg-325mg 1 tab PO Q4H PRN PRN Pain 2 days #10 TABLETS 03/19/22 [Rx Last Taken Unknown] Allergy/AdvReac Type Severity Reaction Status Date / Time tetanus and diphtheria Allergy Hives Verified 03/19/22 08:12 toxoids [tetanus & diphtheria toxoids] Family History Sister Cancer lung Father Cancer lung Mother Cancer lung Surgical History H/O: section History of bilateral cataract extraction History of cholecystectomy History of left heart catheterization (06/17/21) History of lumpectomy Hx of appendectomy Social History household members: none Smoking Status: Former smoker how long ago did patient quit smokin, 1pk/day second hand exposure: Yes alcohol intake: former substance use type: does not use what type of physical activity do you participate in: walking frequency: daily ROS ROS ED Review of Systems ROS Unobtainable: other Constitutional Constitutional ED: Reports lethargy; Denies chills, fever(s), sweats or weight loss Eyes Eyes: Denies blurry vision, change in vision or diplopia ENT ENT ED: Denies rhinorrhea or sore throat Cardiovascular Cardiovascular: Denies chest pain, orthopnea or racing heartbeat Respiratory/Chest Respiratory/Chest: Reports dyspnea and dyspnea on exertion; Denies cough, orthopnea or sputum Gastrointestinal Gastrointestinal: Denies abdominal pain, diarrhea, nausea or vomiting Genitourinary Genitourinary ED: Denies dysuria, hematuria or urinary frequency Musculoskeletal Musculoskeletal: Reports back pain; Denies arthralgias, myalgias or neck pain Integumentary Denies abscess, Abrasions or rash Neurologic Neurologic: Denies headache(s) or weakness Psychiatric Psychiatric: Denies anxiety, depression or suicidal thoughts Endocrine Endocrinology: Denies polydipsia, polyphagia or polyuria Hematologic/Lymphatic Hematologic/Lymphatic: Denies easy bleeding, easy bruising or lymphadenopathy Allergic/Immunologic Allergic/Immunologic ED: Denies mouth swelling, tongue swelling or urticaria EXAM Physical Exam Const Vital Signs: 03/19/22 08:13 03/19/22 09:03 03/19/22 09:06 Temperature 97.6 F L Temperature Source Temporal Pulse Rate 108 H 110 H Respiratory Rate 17 20 H Blood Pressure 122/63 H Blood Pressure Mean 82 Pulse Ox 94 97 Oxygen Delivery Method Nasal Cannula Nasal Cannula Oxygen Flow Rate (L/min) 2 3 03/19/22 09:10 Temperature Temperature Source Pulse Rate Respiratory Rate Blood Pressure Blood Pressure Mean Pulse Ox 99 Oxygen Delivery Method Nasal Cannula Oxygen Flow Rate (L/min) 2 Positive well nourished and well developed General Appearance ED: well developed and NAD HEENT Reports TM's clear and moist mucous membranes normocephalic and atraumatic; Negative for trauma or tenderness Tympanic Membrane ED: Yes TM's clear Eyes PERRL and EOMs intact bilaterally General Eye ED: Negative for pale conjunctiva or scleral icterus Neck no lymphadenopathy, supple and no JVD General: Negative for tenderness Chest Wall inspection of chest normal and palpation of chest normal Chest: Negative for tenderness Resp normal respiratory effort and clear to auscultation bilaterally Effort and Inspection: Negative for respiratory distress or pain with movement Auscultation: Negative for rhonchi, wheezes or diminished lung sounds Cardio regular rate, regular rhythm, S1 normal heart sound, S2 normal heart sound and no murmurs Peripheral Pulses: pulses 2+ throughout GI normal to inspection, nondistended, normoactive bowel sounds, soft to palpation, non-tender, non-distended and no masses Back/Spine Back/Spine Narrative: No tenderness over thoracic or lumbar spine. Patient does have tenderness palpation over the left upper thoracic paraspinal musculature and mild CVA tenderness on the left. Negative straight leg raises. Deep tendon reflexes plus 2 out of 4 bilaterally at the patella and Achilles. Patient has normal 5 extension. Patient has normal sensation to light touch. Extremity normal to inspection General Extremety ED: Negative for edema General Extremity: Negative for edema Neuro oriented x3, CN's II-XII intact bilaterally, no sensory deficits noted and gait normal Sensorium / Orientation: awake, alert, oriented to person, oriented to place and oriented to time Motor Exam: strength 5/5 throughout and strength abnormal Psych mental status grossly normal Skin no rashes or lesions noted and no wounds MDM MDM MDM Narrative Medical decision making narrative: IV line established on arrival. Patient was medicated morphine and Zofran and given a DuoNeb aerosol. CBC with differential showed a slightly elevated white count of 13.7. Her D-dimer was elevated 2.68 and given the upper back pain that was of sudden onset a CTA of the chest was obtained which was negative for PE or any acute disease process. I also performed a CT scan of the abdomen and pelvis without contrast to evaluate for kidney stones and this was essentially negative she did have a cyst on her left ovary. After treatment with pain medication here she states that her pain is resolved and she was able to ambulate in the department without difficulty. At this point she is requesting to be discharged to home. I did do a urinalysis but they did not have enough urine to do a microscopic evaluation and only a dip. She did have 500 leukocyte Estrace but she is asymptomatic. She will have a culture sent. Patient will be given a prescription for [place] should the pain return. Patient advised to return if worsening pain, weakness extremities, change in bowel or bladder function, or condition should worsen anyway. In the differential would be sciatica as well. There are no red flag symptoms for cauda equina. Lab Data Attestation: I reviewed the patient's lab results. Labs: Laboratory Results - last 24 hr 03/19/22 03/19/22 03/19/22 09:10 09:10 09:10 WBC 13.7 H RBC 3.79 L Hgb 10.1 L Hct 33.2 L MCV 87.6 MCH 26.6 L MCHC 30.4 L RDW Std Deviation 47.4 H RDW Coeff of Deonte 14.9 H Plt Count 271 MPV 9.9 Immature Gran % (Auto) 0.600 Neut % (Auto) 76.4 H Lymph % (Auto) 15.2 L [place] % (Auto) 6.4 Eos % (Auto) 1.1 Baso % (Auto) 0.3 Absolute Neuts (auto) 10.5 H Absolute Lymphs (auto) 2.08 Nucleated RBC % 0 D-Dimer Quant (PE/DVT) 2.68 H* Sodium 141 Potassium 4.2 Chloride 103 Carbon Dioxide 32.0 Anion Gap 6 BUN 20 H Creatinine 0.75 Estim Creat Clear Calc 43.18 Est GFR (MDRD) Af Amer 99 Est GFR (MDRD) Non-Af 82 BUN/Creatinine Ratio 26.7 H Glucose 103 Calcium 9.3 Urine Color Urine Clarity Urine pH Ur Specific [place] Urine Protein Urine Glucose (UA) Urine Ketones Urine Occult Blood Urine Nitrite Urine Bilirubin Urine Urobilinogen Ur Leukocyte Esterase Urine RBC Urine WBC Ur Squamous Epith Cells Ur Transition Epith Cell Ur Renal Epithelial Cell Calcium Oxalate Crystal Uric Acid Crystals Triple Phos Crystals Other Crystals Amorphous Sediment Urine Bacteria Hyaline Casts Fine Granular Casts Coarse Granular Casts Waxy Casts RBC Casts WBC Casts Urine Mucus Urine Trichomonas Urine Yeast 03/19/22 10:50 WBC RBC Hgb Hct MCV MCH MCHC RDW Std Deviation RDW Coeff of [place] Plt Count MPV Immature Gran % (Auto) Neut % (Auto) Lymph % (Auto) [place] % (Auto) Eos % (Auto) Baso % (Auto) Absolute Neuts (auto) Absolute Lymphs (auto) Nucleated RBC % D-Dimer Quant (PE/DVT) Sodium Potassium Chloride Carbon Dioxide Anion Gap BUN Creatinine Estim Creat Clear Calc Est GFR (MDRD) Af Amer Est GFR (MDRD) Non-Af BUN/Creatinine Ratio Glucose Calcium Urine Color Yellow Urine Clarity Clear Urine pH 5.0 Ur Specific [place] 1.025 Urine Protein Negative Urine Glucose (UA) Normal Urine Ketones 5 H Urine Occult Blood 10 H Urine Nitrite Negative Urine Bilirubin Negative Urine Urobilinogen Normal Ur Leukocyte Esterase 500 H Urine RBC Cancelled Urine WBC Cancelled Ur Squamous Epith Cells Cancelled Ur Transition Epith Cell Cancelled Ur Renal Epithelial Cell Cancelled Calcium Oxalate Crystal Cancelled Uric Acid Crystals Cancelled Triple Phos Crystals Cancelled Other Crystals Cancelled Amorphous Sediment Cancelled Urine Bacteria Cancelled Hyaline Casts Cancelled Fine Granular Casts Cancelled Coarse Granular Casts Cancelled Waxy Casts Cancelled RBC Casts Cancelled WBC Casts Cancelled Urine Mucus Cancelled Urine Trichomonas Cancelled Urine Yeast Cancelled Radiography Diagnostic Testing: Clinical Impression(s) from Imaging Studies Abdomen/Pelvis CT 03/19/22 08:37 IMPRESSION: 2.3 cm x 2.2 cm cyst in the left ovary. Electronically Signed: Vinny Mcghee MD at 10:16 EDT , Chest X-Ray 03/19/22 09:40 IMPRESSION: Stable examination. Electronically Signed: Vinny Mcghee MD at 10:10 EDT , Chest CTA 03/19/22 09:41 IMPRESSION: No evidence of pulmonary embolism. No acute abnormality is seen. Electronically Signed: Vinny Mcghee MD at 10:30 EDT , 1 view chest x-ray obtained interpreted by myself as no acute disease process. Radiology in agreement. Discharge Plan Triage Chief Complaint: Back ED Provider: Gabriela Kinney Dx/Rx/DC Orders Clinical Impression: Back pain Instructions: ED Back Pain (Acute or Chronic), ED Sciatica Prescriptions: New hydrocodone-acetaminophen [hydrocodone-acetaminophen] 5-325 mg tablet 1 tab PO Q4H PRN PRN (Reason: Pain) 2 Days Qty: 10 0RF No Action albuterol sulfate [Ventolin HFA] 90 mcg/actuation HFA aerosol inhaler 2 puff inhalation Q4H PRN (Reason: shortness of breath or wheezing) Qty: 18 6RF [id number] 100-62.5-25 mcg blister with device 1 inh inhalation DAILY Qty: 60 3RF escitalopram oxalate [Lexapro] 10 mg tablet 10 mg PO DAILY mecobalamin (vitamin B12) 5,000 mcg tablet,disintegrating 5,000 mcg PO DAILY zolpidem 10 mg tablet 10 mg PO QHS PRN (Reason: Sleep) losartan 25 mg tablet 25 mg PO DAILY spironolactone 25 mg Tablet 12.5 mg PO DAILY Hold Instructions: symptoms of low blood pressure 12/02/21 Label Comments: on hold until instructed to resume pantoprazole [Protonix] 40 mg Tablet,Delayed Release (Dr/Ec) 40 mg PO DAILY ropinirole 0.5 mg Tablet 0.5 mg PO QHS folic acid 1 mg Tablet 1 mg PO DAILY aspirin 81 mg Tablet 81 mg PO DAILY duloxetine 60 mg Capsule,Delayed Release(Dr/Ec) 60 mg PO DAILY cholecalciferol (vitamin D3) [Vitamin D3] 25 mcg (1,000 unit) Tablet 25 mcg PO DAILY potassium chloride 20 mEq Tablet Extended Release 20 meq PO DAILY albuterol sulfate 1.25 mg/3 mL Solution For Nebulization 1.25 mg INHALATION Q4H PRN (Reason: Shortness Of Breath Or Wheezing) hydroxyzine pamoate [Vistaril] 25 mg capsule 25 mg PO BID PRN (Reason: itching) Qty: 20 0RF prednisone 20 mg tablet 60 mg PO DAILY Qty: 15 0RF carvedilol 12.5 mg tablet 12.5 mg PO BID Qty: 60 11RF Primary Care Provider: Maryam Pineda Referrals: Maryam Pineda MD [Primary Care Provider] - 3-5 Days Disposition Disposition: Home, Self Care
[2022-03-19 09:03] VITALS: PULSE 110; RESP 20
[2022-03-19] MEDS: Ipratropium/Albuterol Sulfate 3 ML AMPUL.NEB INHALATION (09:04)
[2022-03-19 09:06] VITALS: O2SAT 97
[2022-03-19] MEDS: Morphine 4 MG/ML Syringe IV (09:08)
[2022-03-19] MEDS: Ondansetron 4 MG/2 ML Vial IV (09:08)
[2022-03-19] MEDS: 0.9% Normal Saline 1,000 ML 150 ML IV (09:09)
[2022-03-19 09:10] VITALS: O2SAT 99
[2022-03-19 09:21] LABS: Absolute Lymphocyte Count 2.08 X10^3/uL (0.83-4.51); Absolute Neutrophil Count 10.5 X10^3/uL (2.0-7.7); Basophil# 0.04 X10^3/uL; Basophil% 0.3 % (0-1); Eosinophil# 0.15 X10^3/uL; Eosinophils% 1.1 % (0-5); Hematocrit 33.2 % (37-47); Hemoglobin 10.1 g/dL (12.0-15.0); Lymphocyte # 2.08 X10^3/ul (0.83-4.51); Lymphocyte % 15.2 % (19-41); Mean Corp Hgb Conc 30.4 g/dL (32-36); Mean Corpuscular Hgb 26.6 pg (27.0-32.0); Mean Corpuscular Volume 87.6 fL (81-99); Mean Platelet Vol. 9.9 fl (6.2-12.0); Monocyte# 0.88 X10^3/uL; Monocyte% 6.4 % (0-10); NRBC Flagged by Analyzer 0 % (0-5); Neutrophil # 10.45 X10^3/uL (2.7-7.7); Neutrophil % 76.4 % (47-70); Platelet Count 271 K/mm3 (150-450); RBC Distribution Width CV 14.9 % (11.6-14.6); RBC Distribution Width SD 47.4 fl (35.1-43.9); Red Blood Count 3.79 M/mm3 (4.2-5.4); White Blood Count 13.7 K/mm3 (4.4-11.0)
[2022-03-19 09:33] LABS: Anion Gap 6 (5-15); BUN 20 mg/dL (7-18); BUN/Creat Ratio 26.7 RATIO (10-20); Calcium,Total 9.3 mg/dL (8.5-10.1); Chloride 103 mmol/L (98-107); Creatinine, Serum 0.75 mg/dL (0.55-1.02); EST Glomerular Filtration Rate 82 mL/min (>60); Est Glom Filt Rate - Afr Amer 99 mL/min (>60); Estimated Creatinine Clearance 43.18 ml/min; Glucose 103 mg/dL (74-106); Potassium 4.2 mmol/L (3.5-5.1); Sodium Level 141 mmol/L (136-145)
[2022-03-19 09:36] LABS: D-Dimer Quantitative (DVT/PE) 2.68 FEU/ug/m (0.27-0.49)
--- NOTE | 2022-03-19 09:38 | ED.RN ---
d-dimer 2.69. Dr cody
--- NOTE | 2022-03-19 09:40 | RAD_ITS ---
STUDY: X-RAY CHEST REASON FOR EXAM: Female, 66 years old. Dyspnea TECHNIQUE: Single AP portable view of the chest. COMPARISON: Comparison is made with prior study 02/26/2022. FINDINGS: Hyperinflation. Stable mild increased markings at the lung bases suggests left basilar scarring. There is no demonstrated pleural abnormality. Normal size heart. Normal mediastinum and jacinto. Normal visualized pulmonary arteries. Normal visualized aortic arch and descending thoracic aorta. Normal visualized thoracic spine. Normal visualized ribs, clavicles, and shoulders. There is no demonstrated abnormality of the visualized soft tissue structures of the upper abdomen. RAD/Chest 1 View (Portable) IMPRESSION: Stable examination. Electronically Signed: Vinny Mcghee MD at 10:10 EDT ,
--- NOTE | 2022-03-19 09:41 | CT_ITS ---
STUDY: CTA CHEST REASON FOR EXAM: Female, 66 years old. Back pain, elevated d-dimer. History of breast cancer with the prior right lumpectomy. RADIATION DOSAGE (If Supplied By Facility): CTDIvol = ( 11.17 ) mGy, DLP = ( 727.71 ) mGycm TECHNIQUE: The examination was performed with the intravenous administration of IV 100mL [id number]. Post-processing of the angiographic images was performed, with multiplanar reformation and 3D reconstruction. Individualized dose optimization techniques were used for this CT. COMPARISON: Comparison is made with prior study 09/25/2021. FINDINGS: Normal enhancement of the main pulmonary artery and right and left pulmonary arteries. Normal enhancement of the bilateral peripheral pulmonary arteries. There is no demonstrated pulmonary embolism. Normal thoracic aorta and visualized great vessels. There is no demonstrated aortic dissection. Normal heart and pericardium. Normal mediastinum. Normal hilar regions. Normal visualized trachea and bronchi. The lungs are well expanded. Normal pulmonary parenchyma. Normal pleura. Normal chest wall structures. There are degenerative changes of thoracic spine. Normal visualized upper abdomen. CT/CTA Chest W/WO Contrast IMPRESSION: No evidence of pulmonary embolism. No acute abnormality is seen. Electronically Signed: Vinny Mcghee MD at 10:30 EDT ,
[2022-03-19 11:03] LABS: Color, Urine Yellow (Yellow); Glucose, Dipstick Normal (Normal); Ketone-Dipstick 5 mg/dl (Negative); Leukocyte Esterase-Dipstick 500 /ul (Negative); Nitrite-Dipstick Negative (Negative); Occult Blood-Urine 10 /ul (Negative); Protein-Dipstick Negative (Negative); Specific Gravity, Urine 1.025 (1.002-1.030); Urine Bilirubin Dipstick Negative (Negative); Urine Clarity Clear (Clear); Urine Urobilinogen Normal (Normal)
[2022-03-19 11:26] VITALS: BP 126/72; PULSE 94; RESP 18; TEMP 36.6; O2SAT 97
== END 2022-03-19 11:28 | disposition home or self-care (01) ==
PROVIDERS: Emergency Provider Emergency Medicine; PCP Internal Medicine; Visit Provider Emergency Medicine
DX: M54.9 Dorsalgia, unspecified (principal); J44.9 Chronic obstructive pulmonary disease, unspecified; I11.0 Hypertensive heart disease with heart failure; I42.8 Other cardiomyopathies; I50.22 Chronic systolic (congestive) heart failure; Z87.891 Personal history of nicotine dependence; E78.5 Hyperlipidemia, unspecified; G47.33 Obstructive sleep apnea (adult) (pediatric); Z86.73 Personal history of transient ischemic attack (TIA), and cerebral infarction without residual deficits
CPT/HCPCS: 71045; 71275; 74176; 80048; 81002; 85025; 85379; 87077; 87086; 87088; 87186; 94640; 96361; 96374; 96375; 99282; J7030; Q9967; A4216; J2405

== ENCOUNTER 2022-03-20 05:31 | Emergency (ER) | payer MEDICARE, SELFPAY ==
[2022-03-20 05:32] VITALS: BP 126/67; PULSE 122; RESP 18; TEMP 36.1; O2SAT 67; BMI 23.5
[2022-03-20 05:37] VITALS: O2SAT 98
--- NOTE | 2022-03-20 05:41 | CT_ITS ---
STUDY: CT BRAIN WITHOUT CONTRAST REASON FOR EXAM: Female, 66 years old. head injury. RECENT BRAIN BLEED WITH CRANIOTOMY RADIATION DOSAGE (If Supplied By Facility): CTDIvol = ( 44.99 ) mGy, DLP = ( 812.98 ) mGycm TECHNIQUE: Transaxial CT imaging of the brain was performed without administration of intravenous contrast material. Individualized dose optimization techniques were used for this CT. COMPARISON: No relevant priors. FINDINGS: Normal soft tissue structures. Old right craniotomy. Normal size ventricles and extra-axial spaces for the patient''s age. Normal white matter tracts of the cerebral hemispheres. Normal basal ganglia and thalami. Normal brainstem. Normal cerebellum. Stable subdural hematoma overlying the right frontal temporoparietal and occipital lobes. Stable midline shift right to left measuring 1.2 cm. Stable encephalomalacia of the right occipital lobe and the superior posterior left parietal occipital lobe. There are no findings of an acute ischemic infarction. Normal visualized paranasal sinuses. CT/Brain/Head without Contrast IMPRESSION: Stable subdural hematoma overlying the right frontal temporoparietal and occipital lobes. Stable midline shift right to left measuring 1.2 cm. Electronically Signed: Peter De Guzman MD at 7:11 EDT ,
--- NOTE | 2022-03-20 05:41 | CT_ITS ---
STUDY: CT CERVICAL SPINE WITHOUT CONTRAST REASON FOR EXAM: Female, 66 years old. fall RADIATION DOSAGE (If Supplied By Facility): CTDIvol = ( 13.27 ) mGy, DLP = ( 272.59 ) mGycm TECHNIQUE: High resolution transaxial imaging was performed without contrast material. Sagittal and coronal images were reconstructed. Individualized dose optimization techniques were used for this CT. COMPARISON: None FINDINGS: Normal craniovertebral junction. Normal anterior atlantoaxial articulation. Normal odontoid process. Normal cervical lordosis. There is mild compression fracture of C7 of undetermined age. Further evaluation by MRI is recommended. C2-3: Normal endplates. Normal disc height and morphology. Normal central canal and intervertebral neuroforamina. C3-4: Normal endplates. Normal disc height and morphology. Normal central canal and intervertebral neuroforamina. C4-5, C5-6: Endplate spondylosis. Central and paracentral disc bulge. Degenerative changes of the bilateral facet joints and uncovertebral joints. Mild narrowing of the central canal and the bilateral intervertebral neural foramina. C6-7: Normal endplates. Normal disc height and morphology. Normal central canal and intervertebral neuroforamina. C7-T1: Normal endplates. Normal disc height and morphology. Normal central canal and intervertebral neuroforamina. Normal visualized soft tissue structures. CT/Spine Cervical without Contras IMPRESSION: There is mild compression fracture of C7 of undetermined age. Further evaluation by MRI is recommended. Electronically Signed: Peter De Guzman MD at 7:16 EDT ,
--- NOTE | 2022-03-20 05:46 | RAD_ITS ---
STUDY: X-RAY - PELVIS REASON FOR EXAM: Female, 66 years old. pain TECHNIQUE: One view of the pelvis was obtained. COMPARISON: None. FINDINGS: There is a non-specific bowel gas pattern. Normal visualized soft tissue structures. There is narrowing with cortical sclerosis and osteophyte formation of the sacroiliac joint consistent with degenerative osteoarthritic changes. Normal visualized bilateral superior and inferior pubic rami. There are degenerative changes of the pubic symphysis with articular narrowing and sclerosis. Normal ischial tuberosities. There are osteoarthritic changes of the right femoral head with marginal osteophyte formation. Normal right acetabulum. Normal right hip joint. There are osteoarthritic changes of the left femoral head with marginal osteophyte formation. Normal left acetabulum. Normal left hip joint. RAD/Pelvis 1 or 2 Views IMPRESSION: Mild degenerative arthrosis of the pelvis. Electronically Signed: Peter De Guzman MD at 7:18 EDT ,
[2022-03-20 06:06] LABS: Allen Test Positive; Base Excess 7 mmol/L (-2 to +2); Bicarbonate 32.7 mmol/L (22-26); Blood Gas Specimen Type ART; O2 Delivery Device Cannula; PO2 89 mmHG (75-100); SITE R Radial; SO2 96 % (95-99); Total Carbon Dioxide 35 mmol/L; pCO2 59.6 mmHg (35-45); pH 7.35 (7.35-7.45)
--- NOTE | 2022-03-20 06:18 | RAD_ITS ---
STUDY: X-RAY - RIGHT HAND REASON FOR EXAM: Female, 66 years old. injury TECHNIQUE: 3 view(s) of the hand. COMPARISON: None. FINDINGS: Normal radiocarpal articulation. Normal distal radioulnar joint. Normal visualized carpal bones. Normal carpal articulations Normal carpometacarpal articulation of the thumb. Normal second through fifth carpometacarpal joints. Normal metacarpi. There is degenerative arthrosis of the metacarpophalangeal (MCP) joints. Normal interphalangeal joint of the thumb. Normal proximal and distal phalanges of the thumb. Normal metacarpophalangeal joints of the second through fifth fingers. Normal proximal and distal interphalangeal joints of the second through fifth fingers. Normal phalanges of the second through fifth fingers. The soft tissue structures are unremarkable. RAD/Hand Min 3 Views IMPRESSION: Degenerative joint disease of the hand, as described above. Electronically Signed: Peter De Guzman MD at 7:20 EDT ,
--- NOTE | 2022-03-20 06:23 | EX.ED.DYSGE1 ---
HPI History of Present Illness Chief Complaint: Fall Narrative Narrative: Patient is a 66-year-old female with past medical history of non-STEMI COPD on 2 L of nasal cannula oxygen 25/01 previous CO2 narcosis and previous subdural hematoma requiring craniotomy. The patient's daughter does not live with her but states she received a phone call from the patient's boyfriend stating the patient had fallen this morning. The patient is a poor historian and cannot recount how she fell. Daughter states she received a phone call around [phone] this morning but it is unknown if the fall occurred at that time or was sometime throughout the night and unwitnessed. Daughter has concern that the patient may have developed a brain bleed once again based on her symptoms and fall and therefore EMS was called to bring her in for evaluation [facility] Medical History Alcohol abuse Anxiety Anxiety and depression Chronic anemia Chronic systolic (congestive) heart failure CO2 narcosis Congestive heart failure (CHF) COPD (chronic obstructive pulmonary disease) Daytime hypersomnia Essential (primary) hypertension Fall GERD (gastroesophageal reflux disease) Head concussion Hemorrhagic cerebrovascular accident (CVA) (02/09/17) History of DVT of lower extremity (02/11/17) History of non-ST elevation myocardial infarction (NSTEMI) (02/03/17) Hypercarbia Hyperlipidemia Insomnia Ischemic cerebrovascular accident (CVA) (02/06/17) Non-ischemic cardiomyopathy Non-rheumatic mitral regurgitation TIO (obstructive sleep apnea) Respiratory insufficiency Secondary pulmonary arterial hypertension Stroke Takotsubo cardiomyopathy (06/17/21) TIA (transient ischemic attack) (10/25/19) Weakness due to old stroke Home Medications aspirin 81 mg tablet 81 mg PO DAILY heart health 11/03/20 [History Last Taken Unknown] cholecalciferol (vitamin D3) 25 mcg (1,000 unit) tablet (Vitamin D3) 25 mcg PO DAILY supplement 11/03/20 [History Last Taken Unknown] duloxetine 60 mg capsule,delayed release 60 mg PO DAILY depression 11/03/20 [History Last Taken Unknown] folic acid 1 mg tablet 1 mg PO DAILY supplement 11/03/20 [History Last Taken Unknown] pantoprazole 40 mg tablet,delayed release (Protonix) 40 mg PO DAILY GERD 11/03/20 [History Last Taken Unknown] potassium chloride 20 mEq tablet,extended release 20 meq PO DAILY supplement 11/03/20 [History Last Taken Unknown] ropinirole 0.5 mg tablet 0.5 mg PO QHS RLS 11/03/20 [History Last Taken Unknown] spironolactone 25 mg tablet 12.5 mg PO DAILY BP 11/03/20 [History Last Taken Unknown] albuterol sulfate 90 mcg/actuation aerosol inhaler (Ventolin HFA) 2 puff inhalation Q4H PRN shortness of breath or wheezing #18 grams 12/23/20 [Rx Last Taken Unknown] fluticasone fur. 100 mcg-umeclid 62.5 mcg-vilant 25 mcg inhalat.powder 1 inh inhalation DAILY COPD #60 ea 12/23/20 [Rx Last Taken Unknown] albuterol sulfate 1.25 mg/3 mL solution for nebulization 1.25 mg inhalation Q4H PRN Shortness Of Breath Or Wheezing 06/15/21 [History Last Taken Unknown] escitalopram oxalate 10 mg tablet (Lexapro) 10 mg PO DAILY 07/07/21 [History Last Taken Unknown] mecobalamin (vitamin B12) 5,000 mcg disintegrating tablet 5,000 mcg PO DAILY 07/07/21 [History Last Taken Unknown] carvedilol 12.5 mg tablet 12.5 mg PO BID BP #60 tabs 09/10/21 [Rx Last Taken Unknown] losartan 25 mg tablet 25 mg PO DAILY 12/02/21 [History Last Taken Unknown] zolpidem 10 mg tablet 10 mg PO QHS PRN Sleep 12/02/21 [History Last Taken Unknown] hydroxyzine pamoate 25 mg capsule (Vistaril) 25 mg PO BID PRN itching #20 caps 12/06/21 [Rx Last Taken Unknown] prednisone 20 mg tablet 60 mg PO DAILY #15 TABLETS 02/26/22 [Rx Last Taken Unknown] hydrocodone-acetaminophen 5-325mg 5mg-325mg 1 tab PO Q4H PRN PRN Pain 2 days #10 TABLETS 03/19/22 [Rx Last Taken Unknown] Allergy/AdvReac Type Severity Reaction Status Date / Time tetanus and diphtheria Allergy Hives Verified 03/19/22 08:12 toxoids [tetanus & diphtheria toxoids] Family History Sister Cancer lung Father Cancer lung Mother Cancer lung Surgical History H/O: section History of bilateral cataract extraction History of cholecystectomy History of left heart catheterization (06/17/21) History of lumpectomy Hx of appendectomy Social History household members: none Smoking Status: Former smoker how long ago did patient quit smokin, 1pk/day second hand exposure: Yes alcohol intake: former substance use type: does not use what type of physical activity do you participate in: walking frequency: daily ROS ROS ED Eyes Eyes: Denies change in vision ENT ENT ED: Denies sore throat Cardiovascular Cardiovascular: Denies chest pain Respiratory/Chest Respiratory/Chest: Reports cough and dyspnea Gastrointestinal Gastrointestinal: Denies abdominal pain, diarrhea, nausea or vomiting Genitourinary Genitourinary ED: Denies dysuria Musculoskeletal Musculoskeletal: Reports back pain and other Details: Positive right hand pain Integumentary Reports other Details: Positive scalp laceration Neurologic Neurologic: Reports headache(s) Hematologic/Lymphatic Hematologic/Lymphatic: Denies easy bleeding or easy bruising EXAM Physical Exam Const Vital Signs: 03/20/22 05:32 03/20/22 05:37 03/20/22 05:37 Temperature 97 F L Temperature Source Temporal Pulse Rate 122 H Respiratory Rate 18 Respiratory Effort Short of Breath Respiratory Depth Shallow Respiratory Pattern Irregular Blood Pressure 126/67 H Blood Pressure Mean 86 Pulse Ox 67 98 Oxygen Delivery Method Room Air Nasal Cannula Nasal Cannula Oxygen Flow Rate (L/min) 5 3 Positive well nourished and well developed General Appearance ED: well developed HEENT HEENT Narrative: Patient has a V-shaped laceration to the middle parietal portion of the scalp. The wound is approximately 3 cm in size and subcutaneous layer deep with minimal ooze of blood. Otherwise no foreign body noted. No obvious signs of depressed or basilar skull fracture Eyes EOMs intact bilaterally Eyes Narrative: Pupils are slightly constricted Neck supple Neck Narrative: No bony deformity or step-off of the cervical spine but there is mild midline pain with palpation along the C6-C7 vertebrae Chest Wall palpation of chest normal Chest Narrative: No bony deformity or crepitance with palpation of the chest wall Resp normal respiratory effort Resp Narrative: Breath sounds are diminished throughout with diffuse expiratory wheeze consistent with history of COPD Cardio regular rhythm Rate: tachycardic and other Other Details: Radial pulses are plus 2 out of 4 bilaterally are equal and symmetric GI non-tender and non-distended GI Narrative: Abdomen is soft nontender nondistended with hypoactive bowel sounds no voluntary guarding no rigidity no pulsatile mass Auscultation: hypoactive bowel sounds Palpation: soft Back/Spine Back/Spine Narrative: No bony deformity or step-off of the thoracic or lumbar spine no midline pain on palpation Extremity normal to inspection Extremity Narrative: No asymmetric edema no pitting edema negative Homans' sign bilaterally Patient has a large area of ecchymosis/hematoma to the dorsal aspect of the right hand without obvious bony deformity. Neuro CN's II-XII intact bilaterally Neuro Narrative: Patient is mildly obtunded with GCS of 13. However with stimulation her GCS improves to 15. When she is obtunded a GCS of 13 she is slurring her speech but when she is aroused and awakens slurred speech resolved and stroke scale score is 0. Sensorium / Orientation: alert Psych Psych Narrative: Patient has a flat affect Skin Skin Narrative: Soft tissue changes to the scalp and right hand as documented above. MDM MDM MDM Narrative Medical decision making narrative: Patient arrived to the ER obtunded but with mild stimulation would awake and at that time her speech was now clear and fluent. However she would quickly fall back asleep. Secondary to this I did elect to perform basic laboratory studies and imaging studies were ordered based on her fall. Head CT revealed chronic changes from her previous subdural without acute bleed or fracture. The cervical spine CT showed a questionable C7 compression fracture. Secondary to this patient was placed in a c-collar and will obtain an MRI. The patient's blood gas revealed a CO2 of 60 which chart review reveals is near her baseline. At this time she is having sleepiness which resolved with stimulation but as she quickly falls back asleep I feel this could be related to medication use. Therefore should be hydrated and watch in the ER to see if mental status comes back to baseline and stays that way. At this time if the CT scan confirms an acute C7 fracture she will need transfer. If it is negative for acute fracture but patient still has mild derangement mental status she may need to stay in the hospital for continued observation. At this time do not feel there is need for CTA of the chest as she had this yesterday and she even had a CT of her abdomen and pelvis therefore other than the scan of the head and cervical spine with x-rays of the areas that are painful do not feel there is need for further imaging study. Patient will be signed out to Dr. Hurd pending results of the MRI and further laboratory studies Patient did have the laceration to her scalp closed. It was cleaned with chlorhexidine and then anesthetized with 6 mL of 2% lidocaine with epinephrine in local fashion. The wound was copiously irrigated with normal saline. Then ten 4-0 Prolene sutures were placed in simple and up to fashion. This brought the wound together good approximation. Patient tolerated procedure well without complication. Lab Data Attestation: I reviewed the patient's lab results. Labs: Laboratory Results - last 24 hr 03/20/22 03/20/22 03/20/22 06:05 06:05 06:31 WBC Cancelled Corrected WBC Cancelled RBC Cancelled Hgb Cancelled Hct Cancelled MCV Cancelled MCH Cancelled MCHC Cancelled RDW Std Deviation Cancelled RDW Coeff of Deonte Cancelled Plt Count Cancelled MPV Cancelled Immature Gran % (Auto) Cancelled Neut % (Auto) Cancelled Lymph % (Auto) Cancelled Moca % (Auto) Cancelled Eos % (Auto) Cancelled Baso % (Auto) Cancelled Absolute Neuts (auto) Cancelled Absolute Lymphs (auto) Cancelled Total Counted Cancelled Neutrophils % (Manual) Cancelled Band Neutrophils % Cancelled Lymphocytes % (Manual) Cancelled Monocytes % (Manual) Cancelled Eosinophils % (Manual) Cancelled Basophils % (Manual) Cancelled Metamyelocytes % Cancelled Myelocytes % Cancelled Promyelocytes % Cancelled Blast Cells % Cancelled Plasma Cell % (Manual) Cancelled Other Cells % Cancelled Nucleated RBC % Cancelled Nucleated RBCs/100 WBC Cancelled Differential Comment Cancelled Diff Path Review Cancelled Hypersegmented Neuts Cancelled Atypical Lymphocytes Cancelled Reactive Lymphocytes Cancelled Smudge Cells Cancelled Toxic Granulation Cancelled Toxic Vacuolation Cancelled Dohle Bodies Cancelled Aron Rods Cancelled Platelet Estimate Cancelled Plt Morphology Comment Cancelled RBC Morphology Cancelled Polychromasia Cancelled Hypochromasia Cancelled Poikilocytosis Cancelled Basophilic Stippling Cancelled Anisocytosis Cancelled Microcytosis Cancelled Macrocytosis Cancelled Spherocytes Cancelled Sickle Cells Cancelled Target Cells Cancelled Tear Drop Cells Cancelled Ovalocytes Cancelled Stomatocytes Cancelled [place] Bodies Cancelled [place] Cells Cancelled Bite Cells Cancelled Crenated Cell Cancelled Acanthocytes (Spur) Cancelled Rouleaux Cancelled Schistocytes Cancelled PT 13.8 INR 1.1 APTT 29.0 Sodium 142 Potassium 4.2 Chloride 105 Carbon Dioxide 32.0 Anion Gap 5 BUN 19 H Creatinine 0.68 Estim Creat Clear Calc 45.16 Est GFR (MDRD) Af Amer 111 Est GFR (MDRD) Non-Af 92 BUN/Creatinine Ratio 28.0 H Glucose 124 H Calcium 9.4 Total Creatine Kinase 03/20/22 03/20/22 06:31 06:31 WBC 11.6 H Corrected WBC RBC 3.39 L Hgb 9.0 L Hct 29.5 L MCV 87.0 MCH 26.5 L MCHC 30.5 L RDW Std Deviation 48.2 H RDW Coeff of Deonte 15.2 H Plt Count 235 MPV 9.5 Immature Gran % (Auto) 0.700 Neut % (Auto) 83.2 H Lymph % (Auto) 8.5 L Moca % (Auto) 7.2 Eos % (Auto) 0.1 Baso % (Auto) 0.3 Absolute Neuts (auto) 9.6 H Absolute Lymphs (auto) 0.99 Total Counted Neutrophils % (Manual) Band Neutrophils % Lymphocytes % (Manual) Monocytes % (Manual) Eosinophils % (Manual) Basophils % (Manual) Metamyelocytes % Myelocytes % Promyelocytes % Blast Cells % Plasma Cell % (Manual) Other Cells % Nucleated RBC % 0 Nucleated RBCs/100 WBC Differential Comment Diff Path Review Hypersegmented Neuts Atypical Lymphocytes Reactive Lymphocytes Smudge Cells Toxic Granulation Toxic Vacuolation Dohle Bodies Aron Rods Platelet Estimate Plt Morphology Comment RBC Morphology Polychromasia Hypochromasia Poikilocytosis Basophilic Stippling Anisocytosis Microcytosis Macrocytosis Spherocytes Sickle Cells Target Cells Tear Drop Cells Ovalocytes Stomatocytes [place] Bodies [place] Cells Bite Cells Crenated Cell Acanthocytes (Spur) Rouleaux Schistocytes PT INR APTT Sodium Potassium Chloride Carbon Dioxide Anion Gap BUN Creatinine Estim Creat Clear Calc Est GFR (MDRD) Af Amer Est GFR (MDRD) Non-Af BUN/Creatinine Ratio Glucose Calcium Total Creatine Kinase 411 H ABG Data ABG results: ABG 03/20/22 05:59 Specimen Type ART Sample Site R Radial pH 7.35 Bicarbonate Actual 32.7 H Total CO2 35 Base Excess 7 H O2 Saturation 96 ABG pCO2 59.6 H ABG pO2 89 Royal Test Positive O2 Delivery Device Cannula Liter Flow 3.0 Radiography Diagnostic Testing: Clinical Impression(s) from Imaging Studies Brain CT 03/20/22 05:41 IMPRESSION: Stable subdural hematoma overlying the right frontal temporoparietal and occipital lobes. Stable midline shift right to left measuring 1.2 cm. Electronically Signed: Peter De Guzman MD at 7:11 EDT , Cervical Spine CT 03/20/22 05:41 IMPRESSION: There is mild compression fracture of C7 of undetermined age. Further evaluation by MRI is recommended. Electronically Signed: Peetr De Guzman MD at 7:16 EDT , Pelvis X-Ray 03/20/22 05:46 IMPRESSION: Mild degenerative arthrosis of the pelvis. Electronically Signed: Peter De Guzman MD at 7:18 EDT Reading Location ID and State: [facility] / [place] Tel , Service support , Hand X-Ray 03/20/22 06:18 IMPRESSION: Degenerative joint disease of the hand, as described above. Electronically Signed: Peter De Guzman MD at 7:20 EDT , Right hand x-ray as interpreted by the emergency medicine physician reveals degenerative changes without acute fracture or dislocation Pelvis x-ray as interpreted by the emergency medicine physician reveals degenerative changes without acute fracture or dislocation Discharge Plan Triage Chief Complaint: Fall ED Provider: Malvin Aldridge Dx/Rx/DC Orders Clinical Impression: Accidental fall, COPD (chronic obstructive pulmonary disease), Laceration of scalp, Subdural hematoma, chronic Prescriptions: No Action albuterol sulfate [Ventolin HFA] 90 mcg/actuation HFA aerosol inhaler 2 puff inhalation Q4H PRN (Reason: shortness of breath or wheezing) Qty: 18 6RF [id number] 100-62.5-25 mcg blister with device 1 inh inhalation DAILY Qty: 60 3RF escitalopram oxalate [Lexapro] 10 mg tablet 10 mg PO DAILY mecobalamin (vitamin B12) 5,000 mcg tablet,disintegrating 5,000 mcg PO DAILY zolpidem 10 mg tablet 10 mg PO QHS PRN (Reason: Sleep) losartan 25 mg tablet 25 mg PO DAILY spironolactone 25 mg Tablet 12.5 mg PO DAILY Hold Instructions: symptoms of low blood pressure 12/02/21 Label Comments: on hold until instructed to resume pantoprazole [Protonix] 40 mg Tablet,Delayed Release (Dr/Ec) 40 mg PO DAILY ropinirole 0.5 mg Tablet 0.5 mg PO QHS folic acid 1 mg Tablet 1 mg PO DAILY aspirin 81 mg Tablet 81 mg PO DAILY duloxetine 60 mg Capsule,Delayed Release(Dr/Ec) 60 mg PO DAILY cholecalciferol (vitamin D3) [Vitamin D3] 25 mcg (1,000 unit) Tablet 25 mcg PO DAILY potassium chloride 20 mEq Tablet Extended Release 20 meq PO DAILY albuterol sulfate 1.25 mg/3 mL Solution For Nebulization 1.25 mg INHALATION Q4H PRN (Reason: Shortness Of Breath Or Wheezing) hydroxyzine pamoate [Vistaril] 25 mg capsule 25 mg PO BID PRN (Reason: itching) Qty: 20 0RF prednisone 20 mg tablet 60 mg PO DAILY Qty: 15 0RF hydrocodone-acetaminophen [hydrocodone-acetaminophen] 5-325 mg tablet 1 tab PO Q4H PRN PRN (Reason: Pain) 2 Days Qty: 10 0RF carvedilol 12.5 mg tablet 12.5 mg PO BID Qty: 60 11RF Primary Care Provider: Maryam Pineda Referrals: Maryam Pineda MD [Primary Care Provider] -
[2022-03-20 06:26] LABS: Anion Gap 5 (5-15); BUN 19 mg/dL (7-18); Calcium,Total 9.4 mg/dL (8.5-10.1); Chloride 105 mmol/L (98-107); Creatinine, Serum 0.68 mg/dL (0.55-1.02); EST Glomerular Filtration Rate 92 mL/min (>60); Est Glom Filt Rate - Afr Amer 111 mL/min (>60); Estimated Creatinine Clearance 45.16 ml/min; Glucose 124 mg/dL (74-106); Potassium 4.2 mmol/L (3.5-5.1); Sodium Level 142 mmol/L (136-145)
[2022-03-20 06:37] LABS: Absolute Lymphocyte Count 0.99 X10^3/uL (0.83-4.51); Absolute Neutrophil Count 9.6 X10^3/uL (2.0-7.7); Basophil# 0.04 X10^3/uL; Basophil% 0.3 % (0-1); Eosinophil# 0.01 X10^3/uL; Eosinophils% 0.1 % (0-5); Hematocrit 29.5 % (37-47); Lymphocyte # 0.99 X10^3/ul (0.83-4.51); Lymphocyte % 8.5 % (19-41); Mean Corp Hgb Conc 30.5 g/dL (32-36); Mean Corpuscular Hgb 26.5 pg (27.0-32.0); Mean Platelet Vol. 9.5 fl (6.2-12.0); Monocyte# 0.83 X10^3/uL; Monocyte% 7.2 % (0-10); NRBC Flagged by Analyzer 0 % (0-5); Neutrophil # 9.63 X10^3/uL (2.7-7.7); Neutrophil % 83.2 % (47-70); Platelet Count 235 K/mm3 (150-450); RBC Distribution Width CV 15.2 % (11.6-14.6); RBC Distribution Width SD 48.2 fl (35.1-43.9); Red Blood Count 3.39 M/mm3 (4.2-5.4); White Blood Count 11.6 K/mm3 (4.4-11.0)
[2022-03-20 06:46] LABS: International Normalized Ratio 1.1; Prothrombin Time (Protime)PT. 13.8 SECONDS (11.7-14.9)
[2022-03-20 06:55] LABS: CPK Total, Creatine Kinase 411 U/L (26-192)
[2022-03-20] MEDS: Lidocaine 2% /Epi 1:100 (20ml) 20 ML VIAL INFILT (07:16)
--- NOTE | 2022-03-20 07:49 | MRI_ITS ---
STUDY: MRI CERVICAL SPINE WITHOUT CONTRAST REASON FOR EXAM: Female, 66 years old. Patient fell. CT suspicious for C7 fracture. Confusion. TECHNIQUE: Standardized fat and water weighted pulse sequences were obtained in the sagittal and axial planes. COMPARISON: CT cervical spine 03/20/2022. CTA neck 06/15/2021. FINDINGS: Study degraded by motion artifact. Mild compression deformity of the C7 vertebral body again demonstrated with mild increased STIR signal suggestive of acute fracture. This fracture was not present on 06/15/2021. Edematous signal is seen within the posterior paraspinal muscles throughout the cervical spine. The paraspinal soft tissues are otherwise unremarkable. Within the limitation of motion artifact, there is no evidence of other fracture, or of full thickness ligamentous tear or injury to the discs. No definite cord signal abnormality, epidural hematoma, or cord compression. MRI/Spine Cervical (Routine) IMPRESSION: Findings remains suspicious for an acute mildly depressed fracture of the C7 vertebral body. Posterior paraspinal muscle strain. No other apparent injury to the cervical spine within the limitations of mild motion artifact. No cord compression. Electronically Signed: James Anna MD at 10:28 EDT Reading Location ID and State: [facility] / [place] Tel , Service support ,
[2022-03-20 08:02] LABS: Bacteria 0 SEEN /hpf (None Seen); Mucous, Urine 0 SEEN /hpf (<or=2+); Squamous Epithelial Cells - UA 0 SEEN /hpf (5-10)
[2022-03-20 08:04] VITALS: BP 121/67; PULSE 113; RESP 18
[2022-03-20 08:04] LABS: Color, Urine Yellow (Yellow); Glucose, Dipstick Normal (Normal); Ketone-Dipstick 15 mg/dl (Negative); Leukocyte Esterase-Dipstick 25 /ul (Negative); Nitrite-Dipstick Positive (Negative); Occult Blood-Urine 25 /ul (Negative); Protein-Dipstick 15 mg/dl (Negative); Specific Gravity, Urine 1.025 (1.002-1.030); Urine Bilirubin Dipstick Negative (Negative); Urine Clarity Sl. Cloudy (Clear); Urine Urobilinogen Normal (Normal)
[2022-03-20 08:10] LABS: Red Blood Cells-Urine 0-5 SEEN /hpf (0-5); White Blood Cells 0-5 SEEN /hpf (0-5)
[2022-03-20 08:18] LABS: Amphetamine Urine VISTA NEGATIVE (<1000 ng/mL); Barbiturate Urine VISTA NEGATIVE (< 200 ng/mL); Benzodiazepine Urine VISTA NEGATIVE (< 200 ng/mL); Cocaine Urine VISTA NEGATIVE (< 300 ng/mL); Ecstacy Urine VISTA NEGATIVE (< 500 ng/mL); Methadone Urine VISTA NEGATIVE (< 300 ng/mL); PCP Urine VISTA NEGATIVE (< 25 ng/mL); THC Urine VISTA NEGATIVE (< 50 ng/mL); Vista UDS pH Range 5
[2022-03-20 08:28] LABS: Thyroid Stim Hormone (TSH) 0.73 uIU/mL (0.358-3.74)
[2022-03-20 08:35] LABS: Ammonia < 10.0 umol/L (11-32)
[2022-03-20 08:43] LABS: Alcohol, Blood (Medical)-Serum < 3.0 mg/dL
[2022-03-20 10:34] VITALS: BP 135/78; PULSE 110; RESP 18; O2SAT 98
[2022-03-20 11:50] VITALS: BP 134/61; PULSE 110; RESP 18
== END 2022-03-20 11:57 | disposition home or self-care (01) ==
PROVIDERS: Emergency Provider Emergency Medicine; PCP Internal Medicine; Visit Provider Emergency Medicine
DX: S01.01XA Laceration without foreign body of scalp, initial encounter (principal); J44.9 Chronic obstructive pulmonary disease, unspecified; I11.0 Hypertensive heart disease with heart failure; I50.22 Chronic systolic (congestive) heart failure; I42.8 Other cardiomyopathies; I62.03 Nontraumatic chronic subdural hemorrhage; E78.5 Hyperlipidemia, unspecified; W19.XXXA Unspecified fall, initial encounter; Z87.891 Personal history of nicotine dependence; I25.2 Old myocardial infarction; Z86.73 Personal history of transient ischemic attack (TIA), and cerebral infarction without residual deficits; G47.33 Obstructive sleep apnea (adult) (pediatric); K21.9 Gastro-esophageal reflux disease without esophagitis; Z79.82 Long term (current) use of aspirin; Z79.899 Other long term (current) drug therapy
CPT/HCPCS: 12002; 36600; 70450; 71045; 72125; 72141; 72170; 73130; 80048; 80053; 80307; 81001; 82077; 82140; 82550; 82803; 83605; 84443; 84484; 85025; 85610; 85730; 93005; 99285; J7040; A4216

== ENCOUNTER 2022-03-20 20:44 | Emergency (ER) | payer MEDICARE, SELFPAY ==
[2022-03-20 20:45] VITALS: BP 124/65; PULSE 116; RESP 20; TEMP 36.6; O2SAT 89; BMI 23.0
--- NOTE | 2022-03-20 21:00 | EKG12_ITS ---
Test Reason : DYSRHYTHMIA Blood Pressure : / mmHG Vent. Rate : 112 BPM Atrial Rate : 112 BPM P-R Int : 126 ms QRS Dur : 082 ms QT Int : 344 ms P-R-T Axes : 068 042 050 degrees QTc Int : 469 ms Sinus tachycardia Otherwise normal ECG Confirmed by MOISES MENDES, LINDSEY ([id number]), online editor NICOLE ARANGO ([id number]) on 03/23/2022 11:01:38 AM Referred By: TANIYA Confirmed By:LINDSEY DE LEON MD
--- NOTE | 2022-03-20 21:00 | CT_ITS ---
STUDY: CT BRAIN WITHOUT CONTRAST REASON FOR EXAM: Female, 66 years old. trauma RADIATION DOSAGE (If Supplied By Facility): CTDIvol = ( 44.99 ) mGy, DLP = ( 745.49 ) mGycm TECHNIQUE: Transaxial CT imaging of the brain was performed without administration of intravenous contrast material. Individualized dose optimization techniques were used for this CT. COMPARISON: 03/20/2022 at 06 14 FINDINGS: Normal soft tissue structures. Status post right parietal craniotomy with subjacent subdural hygroma. The right-sided subdural hygroma is unchanged in thickness with continued effacement the sulci of the right hemisphere and mild [id number] midline shift (subfalcine herniation). Normal white matter tracts of the cerebral hemispheres. Normal basal ganglia and thalami. Normal brainstem. Normal cerebellum. There is no intracranial hemorrhage. Encephalomalacia within the right occipital lobe and the posterior left parietal lobe consistent with chronic infarcts. Normal visualized paranasal sinuses. CT/Brain/Head without Contrast IMPRESSION: No change from earlier today. Electronically Signed: Oscar Craven MD at 21:57 EDT ,
--- NOTE | 2022-03-20 21:12 | EDS_ITS ---
HPI History of Present Illness Chief Complaint: General Illness Informant: patient and parent Narrative Narrative: Patient's daughter called EMS because she just felt her mother was not quite herself this evening. Mom has a history of head bleed back in January that required craniotomy. She was in rehab. She has been back at home for about a month now. She has had some problems with falls. She was seen earlier this morning for a fall. She had extensive work-up. She had suturing of the scalp. Daughter saw her here and she was acting normally. There is some suspicion that she may not wear her oxygen at home all the time. The daughter was talking to her this evening. There were times that she seemed to be alert and then other times where she just seemed to make comments that did not make a lot of sense. Patient was able to give her Social Security number and the details of what happened today to us when she arrives. But she did arrive off oxygen and is now on oxygen. She evidently also took Ambien earlier this evening. She has Vicodin at home but the daughter does not think she took these. Patient really has no specific complaint. The daughter just feels that there must be something wrong. [facility] Medical History Alcohol abuse Anxiety Anxiety and depression Chronic anemia Chronic systolic (congestive) heart failure CO2 narcosis Congestive heart failure (CHF) COPD (chronic obstructive pulmonary disease) Daytime hypersomnia Essential (primary) hypertension Fall GERD (gastroesophageal reflux disease) Head concussion Hemorrhagic cerebrovascular accident (CVA) (02/09/17) History of DVT of lower extremity (02/11/17) History of non-ST elevation myocardial infarction (NSTEMI) (02/03/17) Hypercarbia Hyperlipidemia Insomnia Ischemic cerebrovascular accident (CVA) (02/06/17) Non-ischemic cardiomyopathy Non-rheumatic mitral regurgitation TIO (obstructive sleep apnea) Respiratory insufficiency Secondary pulmonary arterial hypertension Stroke Takotsubo cardiomyopathy (06/17/21) TIA (transient ischemic attack) (10/25/19) Weakness due to old stroke Home Medications aspirin 81 mg tablet 81 mg PO DAILY heart health 11/03/20 [History Last Taken Unknown] cholecalciferol (vitamin D3) 25 mcg (1,000 unit) tablet (Vitamin D3) 25 mcg PO DAILY supplement 11/03/20 [History Last Taken Unknown] duloxetine 60 mg capsule,delayed release 60 mg PO DAILY depression 11/03/20 [History Last Taken Unknown] folic acid 1 mg tablet 1 mg PO DAILY supplement 11/03/20 [History Last Taken Unknown] pantoprazole 40 mg tablet,delayed release (Protonix) 40 mg PO DAILY GERD 11/03/20 [History Last Taken Unknown] potassium chloride 20 mEq tablet,extended release 20 meq PO DAILY supplement 11/03/20 [History Last Taken Unknown] ropinirole 0.5 mg tablet 0.5 mg PO QHS RLS 11/03/20 [History Last Taken Unknown] spironolactone 25 mg tablet 12.5 mg PO DAILY BP 11/03/20 [History Last Taken Unknown] albuterol sulfate 90 mcg/actuation aerosol inhaler (Ventolin HFA) 2 puff inhalation Q4H PRN shortness of breath or wheezing #18 grams 12/23/20 [Rx Last Taken Unknown] fluticasone fur. 100 mcg-umeclid 62.5 mcg-vilant 25 mcg inhalat.powder 1 inh inhalation DAILY COPD #60 ea 12/23/20 [Rx Last Taken Unknown] albuterol sulfate 1.25 mg/3 mL solution for nebulization 1.25 mg inhalation Q4H PRN Shortness Of Breath Or Wheezing 06/15/21 [History Last Taken Unknown] escitalopram oxalate 10 mg tablet (Lexapro) 10 mg PO DAILY 07/07/21 [History Last Taken Unknown] mecobalamin (vitamin B12) 5,000 mcg disintegrating tablet 5,000 mcg PO DAILY 07/07/21 [History Last Taken Unknown] carvedilol 12.5 mg tablet 12.5 mg PO BID BP #60 tabs 09/10/21 [Rx Last Taken Unknown] losartan 25 mg tablet 25 mg PO DAILY 12/02/21 [History Last Taken Unknown] zolpidem 10 mg tablet 10 mg PO QHS PRN Sleep 12/02/21 [History Last Taken Unknown] hydroxyzine pamoate 25 mg capsule (Vistaril) 25 mg PO BID PRN itching #20 caps 12/06/21 [Rx Last Taken Unknown] prednisone 20 mg tablet 60 mg PO DAILY #15 TABLETS 02/26/22 [Rx Last Taken Unknown] hydrocodone-acetaminophen 5-325mg 5mg-325mg 1 tab PO Q4H PRN PRN Pain 2 days #10 TABLETS 03/19/22 [Rx Last Taken Unknown] cephalexin 500 mg capsule 500 mg PO Q8H #30 caps 03/20/22 [Rx Last Taken Unknown] Allergy/AdvReac Type Severity Reaction Status Date / Time tetanus and diphtheria Allergy Hives Verified 03/20/22 20:49 toxoids [tetanus & diphtheria toxoids] Family History Sister Cancer lung Father Cancer lung Mother Cancer lung Surgical History H/O: section History of bilateral cataract extraction History of cholecystectomy History of left heart catheterization (06/17/21) History of lumpectomy Hx of appendectomy Social History household members: none Smoking Status: Former smoker how long ago did patient quit smokin, 1pk/day second hand exposure: Yes alcohol intake: former substance use type: does not use what type of physical activity do you participate in: walking frequency: daily ROS ROS ED Constitutional Constitutional ED: Denies chills or fever(s) Eyes Eyes: Denies change in vision ENT ENT ED: Denies rhinorrhea Cardiovascular Cardiovascular: Denies chest pain or palpitations Respiratory/Chest Respiratory/Chest: Reports other Details: Chronic COPD on 2 L of oxygen. ; Denies cough or dyspnea Gastrointestinal Gastrointestinal: Denies abdominal pain, diarrhea or vomiting Genitourinary Genitourinary ED: Denies dysuria Integumentary Denies rash Neurologic Neurologic: Reports other Details: Daughter has not noted any specific focal deficit. She feels that intermittently her mother is mildly confused. ; Denies headache(s) Endocrine Endocrinology: Denies polydipsia or polyuria Hematologic/Lymphatic Hematologic/Lymphatic: Denies easy bleeding or easy bruising Allergic/Immunologic Allergic/Immunologic ED: Denies urticaria EXAM Physical Exam Const Vital Signs: 03/20/22 20:45 03/20/22 21:21 03/20/22 22:28 Temperature 97.8 F Temperature Source Temporal Pulse Rate 116 H 114 H Respiratory Rate 20 H 24 H Respiratory Effort Short of Breath Respiratory Pattern Tachypnea Blood Pressure 124/65 H Blood Pressure Mean 84 Pulse Ox 89 100 Oxygen Delivery Method Room Air MDM MDM MDM Narrative Medical decision making narrative: Patient blood work shows mild elevation white count and slightly low hemoglobin. She does have a history of anemia. Electrolytes showed minimally low potassium that should self correct. She evidently is eating and drinking well at home. Glucose is just minimally up at 127. Lactic acid is normal. Liver function test are normal. CT is head showed no interval change chest ray showed no acute process. I did look at her urine cultures from her prior visit. It does not have identification yet but it is greater than 100,000 unit of a gram-negative hortensia lactose bander She has had E. coli before. Last time it was pansensitive except Bactrim. For this reason we will get her started on antibiotics. I had a long talk with her and her daughter. We talked about wearing her oxygen 24 hours a day not just intermittently. I also explained that if they try to wake her up and check her after she takes her Ambien she will have bits of confusion. This is normal. Patient wants to go home. She has no complaints. We will get her started on antibiotics. We discussed reasons to return. We also discussed limited access to narcotics. Patient has prescriptions for tramadol, oxycodone, hydrocodone in the last 5 weeks. This totals just over 100 tablets. This may also affect alertness on occasions. Her pupils look normal now. And she is spontaneously awake. Lab Data Attestation: I reviewed the patient's lab results. Labs: Laboratory Results - last 24 hr 03/20/22 03/20/22 03/20/22 21:15 21:15 21:15 WBC 11.4 H RBC 3.27 L Hgb 8.6 L Hct 28.8 L MCV 88.1 MCH 26.3 L MCHC 29.9 L RDW Std Deviation 49.3 H RDW Coeff of Deonte 15.4 H Plt Count 245 MPV 10.2 Immature Gran % (Auto) 0.600 Neut % (Auto) 78.1 H Lymph % (Auto) 11.7 L Piute % (Auto) 9.0 Eos % (Auto) 0.4 Baso % (Auto) 0.2 Absolute Neuts (auto) 8.9 H Absolute Lymphs (auto) 1.34 Nucleated RBC % 0 Sodium 143 Potassium 3.3 L Chloride 104 Carbon Dioxide 33.0 H Anion Gap 6 BUN 16 Creatinine 0.62 Estim Creat Clear Calc 45.16 Est GFR (MDRD) Af Amer 124 Est GFR (MDRD) Non-Af 102 BUN/Creatinine Ratio 25.8 H Glucose 127 H Lactic Acid 0.9 Calcium 9.1 Total Bilirubin 0.40 AST 27 ALT 22 Alkaline Phosphatase 63 Troponin I High Sens 22 Total Protein 6.7 Albumin 3.1 L Globulin 3.6 Albumin/Globulin Ratio 0.9 ABG Data ABG results: ABG 03/20/22 21:32 Specimen Type ART Sample Site L Radial pH 7.38 Bicarbonate Actual 33.6 H Total CO2 35 Base Excess 9 H O2 Saturation 97 ABG pCO2 57.1 H ABG pO2 90 Royal Test Positive O2 Delivery Device Cannula Liter Flow 2.0 Radiography Diagnostic Testing: Clinical Impression(s) from Imaging Studies Brain CT 03/20/22 21:00 IMPRESSION: No change from earlier today. Electronically Signed: Oscar Craven MD at 21:57 EDT Reading Location ID and State: [id number] / [employer] [place] [employer] , Service support , Chest X-Ray 03/20/22 21:35 IMPRESSION: Normal x-ray examination of the chest. Electronically Signed: Oscar Craven MD at 21:59 EDT Reading Location ID and State: [id number] / [employer] [place] [employer] , Service support , EKG Initial EKG: Comments: WithEKG done as part of medical work-up read by me shows a normal sinus rhythm tachycardic rate at 112. Mild irregular baseline. No acute ST elevation or depression. WI interval, QRS duration are normal. QTc is toward upper end at 469 ms. Discharge Plan Triage Chief Complaint: General Illness ED Provider: Candido Barger Dx/Rx/DC Orders Clinical Impression: Acute UTI Instructions: ED Cystitis Female Adult Prescriptions: New cephalexin [cephalexin] 500 mg capsule 500 mg PO Q8H Qty: 30 0RF No Action albuterol sulfate [Ventolin HFA] 90 mcg/actuation HFA aerosol inhaler 2 puff inhalation Q4H PRN (Reason: shortness of breath or wheezing) Qty: 18 6RF [id number] 100-62.5-25 mcg blister with device 1 inh inhalation DAILY Qty: 60 3RF escitalopram oxalate [Lexapro] 10 mg tablet 10 mg PO DAILY mecobalamin (vitamin B12) 5,000 mcg tablet,disintegrating 5,000 mcg PO DAILY zolpidem 10 mg tablet 10 mg PO QHS PRN (Reason: Sleep) losartan 25 mg tablet 25 mg PO DAILY spironolactone 25 mg Tablet 12.5 mg PO DAILY Hold Instructions: symptoms of low blood pressure 12/02/21 Label Comments: on hold until instructed to resume pantoprazole [Protonix] 40 mg Tablet,Delayed Release (Dr/Ec) 40 mg PO DAILY ropinirole 0.5 mg Tablet 0.5 mg PO QHS folic acid 1 mg Tablet 1 mg PO DAILY aspirin 81 mg Tablet 81 mg PO DAILY duloxetine 60 mg Capsule,Delayed Release(Dr/Ec) 60 mg PO DAILY cholecalciferol (vitamin D3) [Vitamin D3] 25 mcg (1,000 unit) Tablet 25 mcg PO DAILY potassium chloride 20 mEq Tablet Extended Release 20 meq PO DAILY albuterol sulfate 1.25 mg/3 mL Solution For Nebulization 1.25 mg INHALATION Q4H PRN (Reason: Shortness Of Breath Or Wheezing) hydroxyzine pamoate [Vistaril] 25 mg capsule 25 mg PO BID PRN (Reason: itching) Qty: 20 0RF prednisone 20 mg tablet 60 mg PO DAILY Qty: 15 0RF hydrocodone-acetaminophen [hydrocodone-acetaminophen] 5-325 mg tablet 1 tab PO Q4H PRN PRN (Reason: Pain) 2 Days Qty: 10 0RF carvedilol 12.5 mg tablet 12.5 mg PO BID Qty: 60 11RF Primary Care Provider: Maryam Pineda Referrals: Maryam Pineda MD [Primary Care Provider] - 3-5 Days if not improving Disposition Disposition: Home, Self Care Discharge Date/Time: 03/20/22 22:40
[2022-03-20 21:26] LABS: Absolute Lymphocyte Count 1.34 X10^3/uL (0.83-4.51); Absolute Neutrophil Count 8.9 X10^3/uL (2.0-7.7); Basophil# 0.02 X10^3/uL; Basophil% 0.2 % (0-1); Eosinophil# 0.04 X10^3/uL; Eosinophils% 0.4 % (0-5); Hematocrit 28.8 % (37-47); Hemoglobin 8.6 g/dL (12.0-15.0); Lymphocyte # 1.34 X10^3/ul (0.83-4.51); Lymphocyte % 11.7 % (19-41); Mean Corp Hgb Conc 29.9 g/dL (32-36); Mean Corpuscular Hgb 26.3 pg (27.0-32.0); Mean Corpuscular Volume 88.1 fL (81-99); Mean Platelet Vol. 10.2 fl (6.2-12.0); Monocyte# 1.03 X10^3/uL; NRBC Flagged by Analyzer 0 % (0-5); Neutrophil # 8.92 X10^3/uL (2.7-7.7); Neutrophil % 78.1 % (47-70); Platelet Count 245 K/mm3 (150-450); RBC Distribution Width CV 15.4 % (11.6-14.6); RBC Distribution Width SD 49.3 fl (35.1-43.9); Red Blood Count 3.27 M/mm3 (4.2-5.4); White Blood Count 11.4 K/mm3 (4.4-11.0)
--- NOTE | 2022-03-20 21:35 | RAD_ITS ---
STUDY: X-RAY CHEST REASON FOR EXAM: Female, 66 years old. trauma TECHNIQUE: Single AP portable view of the chest. COMPARISON: 03/19/2022 FINDINGS: The lungs are clear and expanded. There is no demonstrated pleural abnormality. Normal size heart. Normal mediastinum and jacinto. Normal visualized pulmonary arteries. Normal visualized aortic arch and descending thoracic aorta. Normal visualized thoracic spine. Normal visualized ribs, clavicles, and shoulders. There is no demonstrated abnormality of the visualized soft tissue structures of the upper abdomen. RAD/Chest 1 View (Portable) IMPRESSION: Normal x-ray examination of the chest. Electronically Signed: Oscar Craven MD at 21:59 EDT ,
[2022-03-20 21:41] LABS: Allen Test Positive; Base Excess 9 mmol/L (-2 to +2); Bicarbonate 33.6 mmol/L (22-26); Blood Gas Specimen Type ART; O2 Delivery Device Cannula; PO2 90 mmHG (75-100); SITE L Radial; SO2 97 % (95-99); Total Carbon Dioxide 35 mmol/L; pCO2 57.1 mmHg (35-45); pH 7.38 (7.35-7.45)
[2022-03-20 21:44] LABS: ALB/GLOB Ratio 0.9 RATIO (0.9-2.4); AST(SGOT) 27 U/L (15-37); Alanine Aminotransfer ALT/SGPT 22 U/L (13-56); Albumin, Serum 3.1 g/dL (3.2-5.0); Alkaline Phosphatase 63 U/L (45-117); Anion Gap 6 (5-15); BUN 16 mg/dL (7-18); BUN/Creat Ratio 25.8 RATIO (10-20); Calcium,Total 9.1 mg/dL (8.5-10.1); Chloride 104 mmol/L (98-107); Creatinine, Serum 0.62 mg/dL (0.55-1.02); EST Glomerular Filtration Rate 102 mL/min (>60); Est Glom Filt Rate - Afr Amer 124 mL/min (>60); Estimated Creatinine Clearance 45.16 ml/min; Globulin 3.6 g/dL (2.2-4.2); Glucose 127 mg/dL (74-106); Potassium 3.3 mmol/L (3.5-5.1); Protein, Total 6.7 g/dL (6.4-8.2); Sodium Level 143 mmol/L (136-145); Troponin-I HS 22 pg/mL (3.0-54.0)
[2022-03-20 21:48] LABS: Lactic Acid 0.9 mmol/L (0.4-1.9)
[2022-03-20 22:28] VITALS: PULSE 114; RESP 24; O2SAT 100
[2022-03-20] MEDS: Cephalexin 250 MG Capsule 500 MG PO (22:31)
== END 2022-03-20 22:40 | disposition home or self-care (01) ==
PROVIDERS: Emergency Provider Emergency Medicine; PCP Internal Medicine; Visit Provider Emergency Medicine
DX: N39.0 Urinary tract infection, site not specified (principal); J44.9 Chronic obstructive pulmonary disease, unspecified; I11.0 Hypertensive heart disease with heart failure; I42.8 Other cardiomyopathies; I50.22 Chronic systolic (congestive) heart failure; Z87.891 Personal history of nicotine dependence; E78.5 Hyperlipidemia, unspecified
CPT/HCPCS: 99285; 36600; 70450; 71045; 80053; 82803; 83605; 84484; 85025; 93005; A4216

== ENCOUNTER → 2022-04-23 | Outpatient (CLI) | payer MEDICARE, SELFPAY ==
[2022-04-23 17:33] LABS: Hematocrit 34.6 % (37-47); Hemoglobin 10.6 g/dL (12.0-15.0); Mean Corp Hgb Conc 30.6 g/dL (32-36); Mean Corpuscular Volume 84.8 fL (81-99); Mean Platelet Vol. 10.3 fl (6.2-12.0); Platelet Count 327 K/mm3 (150-450); RBC Distribution Width CV 15.1 % (11.6-14.6); RBC Distribution Width SD 46.9 fl (35.1-43.9); Red Blood Count 4.08 M/mm3 (4.2-5.4); White Blood Count 10.4 K/mm3 (4.4-11.0)
[2022-04-23 18:29] LABS: ALB/GLOB Ratio 0.9 RATIO (0.9-2.4); AST(SGOT) 14 U/L (15-37); Alanine Aminotransfer ALT/SGPT 16 U/L (13-56); Albumin, Serum 3.6 g/dL (3.2-5.0); Alkaline Phosphatase 83 U/L (45-117); Anion Gap 7 (5-15); BUN 15 mg/dL (7-18); Calcium,Total 9.5 mg/dL (8.5-10.1); Chloride 106 mmol/L (98-107); Creatinine, Serum 0.68 mg/dL (0.55-1.02); EST Glomerular Filtration Rate 91 mL/min (>60); Est Glom Filt Rate - Afr Amer 110 mL/min (>60); Globulin 4.1 g/dL (2.2-4.2); Glucose 99 mg/dL (74-106); Potassium 3.7 mmol/L (3.5-5.1); Protein, Total 7.7 g/dL (6.4-8.2); Sodium Level 140 mmol/L (136-145); Thyroid Stim Hormone (TSH) 1.91 uIU/mL (0.358-3.74)
[2022-04-23 18:54] LABS: Hepatitis C Antibody Non-Reactive (Nonreactive)
== END | disposition home or self-care (01) ==
LOC: POLAB3 16:35
PROVIDERS: PCP Internal Medicine; Visit Provider Family Medicine Geriatric Medicine
DX: I10 Essential (primary) hypertension (principal); E55.9 Vitamin D deficiency, unspecified; Z13.89 Encounter for screening for other disorder
CPT/HCPCS: 36415; 80053; 82306; 84443; 85027; 86803

== ENCOUNTER 2022-06-29 22:17 | Inpatient (IN) | payer MEDICARE, SELFPAY ==
[2022-06-29 22:19] VITALS: PULSE 124; RESP 11; TEMP 36.7; O2SAT 94; BMI 73.6
[2022-06-29 22:24] VITALS: BP 93/70
--- NOTE | 2022-06-29 22:28 | CT_ITS ---
INDICATION: Altered mental status EXAMINATION: CT BRAIN - CT Head or Brain W/O Contrast Injection TECHNIQUE: Multiple axial images were obtained of the head without intravenous contrast. A radiation dose optimization technique was used for this scan. IV Contrast dosage and agent: None. COMPARISON: 03/20/2022 FINDINGS: BRAIN PARENCHYMA: No intra- or extra-axial hemorrhage. Posterior right and left cerebral hemisphere encephalomalacia redemonstrated. No evidence of acute infarct. No intracranial mass or mass effect. There is preservation of the wood/white matter interface. Posterior fossa structures are unremarkable. CSF SPACES: Appropriate for age. No hydrocephalus. Basal cisterns are patent. 6 mm caliber right cerebral convexity extra-axial fluid collection (13 mm caliber on 03/20/2022). CALVARIUM, SKULL BASE, PARANASAL SINUSES AND MASTOID AIR CELLS: Right hemicraniotomy redemonstrated. Clear. No discrete lytic or blastic abnormalities. ORBITS: Bilateral ocular lens replacements. CT/Brain/Head without Contrast IMPRESSION: Decreased size of right cerebral convexity extra-axial fluid collection. No new abnormal intracranial finding. Electronically Signed: Jadon Chandler MD at 22:50 EST ,
--- NOTE | 2022-06-29 22:30 | RAD_ITS ---
INDICATION: Shortness of breath EXAMINATION/TECHNIQUE: X-RAY - XR Chest 1 View COMPARISON: 03/20/2022 FINDINGS: LINES/DEVICES: None. LUNGS: No consolidation, edema or effusion. No pneumothorax. MEDIASTINUM AND CARDIOVASCULAR STRUCTURES: Cardiac silhouette not enlarged. Central airways and mediastinal contour are unremarkable. RAD/Chest 1 View (Portable) IMPRESSION: No radiographic evidence of acute cardiopulmonary disease. Electronically Signed: Jadon Chandler MD at 22:51 EST ,
--- NOTE | 2022-06-29 22:39 | ED.RN ---
gold colored necklace handed to daughter
[2022-06-29] MEDS: LORazepam 2 MG/ML Syringe 0.5 MG IV (22:43)
[2022-06-29] MEDS: 0.9% Normal Saline 1,000 ML 1000 ML IV (22:46)
[2022-06-29] MEDS: levETIRAcetam IV 1,000 MG/100 ML BAG 400 MG IV (22:52)
[2022-06-29 23:21] LABS: AST(SGOT) 130 U/L (15-37); Alanine Aminotransfer ALT/SGPT 64 U/L (13-56); Albumin, Serum 3.5 g/dL (3.2-5.0); Alkaline Phosphatase 157 U/L (45-117); Anion Gap 0 (5-15); BUN 15 mg/dL (7-18); BUN/Creat Ratio 16.1 RATIO (10-20); Bilirubin, Direct 0.14 mg/dL (0.00-0.30); Calcium,Total 8.8 mg/dL (8.5-10.1); Chloride 104 mmol/L (98-107); Creatinine, Serum 0.93 mg/dL (0.55-1.02); EST Glomerular Filtration Rate 64 mL/min (>60); Est Glom Filt Rate - Afr Amer 77 mL/min (>60); Estimated Creatinine Clearance 57.08 ml/min; Globulin 3.6 g/dL (2.2-4.2); Glucose 102 mg/dL (74-106); Lipase 254 U/L (73-393); Protein, Total 7.1 g/dL (6.4-8.2); Sodium Level 143 mmol/L (136-145); Troponin-I HS 35 pg/mL (3.0-54.0)
[2022-06-29 23:22] LABS: Absolute Lymphocyte Count 2.85 X10^3/uL (0.83-4.51); Absolute Neutrophil Count 4.9 X10^3/uL (2.0-7.7); Basophil# 0.07 X10^3/uL; Basophil% 0.8 % (0-1); Eosinophil# 0.19 X10^3/uL; Eosinophils% 2.1 % (0-5); Hematocrit 35.6 % (37-47); Hemoglobin 10.5 g/dL (12.0-15.0); Lymphocyte # 2.85 X10^3/ul (0.83-4.51); Lymphocyte % 31.7 % (19-41); Mean Corp Hgb Conc 29.5 g/dL (32-36); Mean Corpuscular Volume 91.5 fL (81-99); Mean Platelet Vol. 10.8 fl (6.2-12.0); Monocyte# 0.89 X10^3/uL; Monocyte% 9.9 % (0-10); NRBC Flagged by Analyzer 0 % (0-5); Neutrophil % 54.6 % (47-70); Platelet Count 209 K/mm3 (150-450); RBC Distribution Width CV 15.5 % (11.6-14.6); RBC Distribution Width SD 51.2 fl (35.1-43.9); Red Blood Count 3.89 M/mm3 (4.2-5.4)
[2022-06-29] MEDS: 0.9% Normal Saline 1,000 ML 150 ML IV (23:31)
--- NOTE | 2022-06-29 23:41 | EDS_ITS ---
HPI History of Present Illness Chief Complaint: Mental Status Change Informant: family Narrative Narrative: Patient presents via EMS secondary to mental status change. Daughter is at bedside and attempt to provide history. Patient reportedly wears home oxygen an d will get intermittently confused if she is forgetting to wear her oxygen. Daughter states yesterday she was slightly forgetful but after reminding her to put her oxygen back on symptoms seem to get better. Daughter received a phone call from the patient significant other tonight stating that she was having trouble getting awake and her oxygen level was low. Patient was minimally responsive to daughter when she arrived and daughter and that she had called 911. Daughter states she will intermittently speak a few words and answer questions appropriately. She is having periods where she will stiffen up and flex both arms tightly. She is a history of 2 prior strokes, one requiring surgery for hemorrhagic stroke. She has no known history of seizures. [facility] Medical History Alcohol abuse Anxiety Anxiety and depression Chronic anemia Chronic systolic (congestive) heart failure CO2 narcosis Congestive heart failure (CHF) COPD (chronic obstructive pulmonary disease) Daytime hypersomnia Essential (primary) hypertension Fall GERD (gastroesophageal reflux disease) Head concussion Hemorrhagic cerebrovascular accident (CVA) (02/09/17) History of DVT of lower extremity (02/11/17) History of non-ST elevation myocardial infarction (NSTEMI) (02/03/17) Hypercarbia Hyperlipidemia Insomnia Ischemic cerebrovascular accident (CVA) (02/06/17) Non-ischemic cardiomyopathy Non-rheumatic mitral regurgitation TIO (obstructive sleep apnea) Respiratory insufficiency Secondary pulmonary arterial hypertension Stroke Takotsubo cardiomyopathy (06/17/21) TIA (transient ischemic attack) (10/25/19) Weakness due to old stroke Home Medications aspirin 81 mg tablet 81 mg PO DAILY heart health 11/03/20 [History Last Taken Unknown] cholecalciferol (vitamin D3) 25 mcg (1,000 unit) tablet (Vitamin D3) 25 mcg PO DAILY supplement 11/03/20 [History Last Taken Unknown] duloxetine 60 mg capsule,delayed release 60 mg PO DAILY depression 11/03/20 [History Last Taken Unknown] folic acid 1 mg tablet 1 mg PO DAILY supplement 11/03/20 [History Last Taken Unknown] pantoprazole 40 mg tablet,delayed release (Protonix) 40 mg PO DAILY GERD 11/03/20 [History Last Taken Unknown] potassium chloride 20 mEq tablet,extended release 20 meq PO DAILY supplement 11/03/20 [History Last Taken Unknown] ropinirole 0.5 mg tablet 0.5 mg PO QHS RLS 11/03/20 [History Last Taken Unknown] spironolactone 25 mg tablet 12.5 mg PO DAILY BP 11/03/20 [History Last Taken Unknown] albuterol sulfate 90 mcg/actuation aerosol inhaler (Ventolin HFA) 2 puff inhalation Q4H PRN shortness of breath or wheezing #18 grams 12/23/20 [Rx Last Taken Unknown] albuterol sulfate 1.25 mg/3 mL solution for nebulization 1.25 mg inhalation Q4H PRN Shortness Of Breath Or Wheezing 06/15/21 [History Last Taken Unknown] escitalopram oxalate 10 mg tablet (Lexapro) 10 mg PO DAILY 07/07/21 [History Last Taken Unknown] mecobalamin (vitamin B12) 5,000 mcg disintegrating tablet 5,000 mcg PO DAILY 07/07/21 [History Last Taken Unknown] losartan 25 mg tablet 25 mg PO DAILY 12/02/21 [History Last Taken Unknown] zolpidem 10 mg tablet 10 mg PO QHS PRN Sleep 12/02/21 [History Last Taken Unknown] hydroxyzine pamoate 25 mg capsule (Vistaril) 25 mg PO BID PRN itching #20 caps 12/06/21 [Rx Last Taken Unknown] prednisone 20 mg tablet 60 mg PO DAILY #15 TABLETS 02/26/22 [Rx Last Taken Unknown] hydrocodone-acetaminophen 5-325mg 5mg-325mg 1 tab PO Q4H PRN PRN Pain 2 days #10 TABLETS 03/19/22 [Rx Last Taken Unknown] cephalexin 500 mg capsule 500 mg PO Q8H #30 caps 03/20/22 [Rx Last Taken Unknown] fluticasone fur. 100 mcg-umeclid 62.5 mcg-vilant 25 mcg inhalat.powder 1 inh inhalation DAILY COPD #60 ea 04/14/22 [Rx Last Taken Unknown] Allergy/AdvReac Type Severity Reaction Status Date / Time tetanus and diphtheria Allergy Hives Verified 06/29/22 22:19 toxoids [tetanus & diphtheria toxoids] Family History Sister Cancer lung Father Cancer lung Mother Cancer lung Surgical History H/O: section History of bilateral cataract extraction History of cholecystectomy History of left heart catheterization (06/17/21) History of lumpectomy Hx of appendectomy Social History household members: none Smoking Status: Former smoker how long ago did patient quit smokin, 1pk/day second hand exposure: Yes alcohol intake: former substance use type: does not use what type of physical activity do you participate in: walking frequency: daily ROS ROS ED Review of Systems ROS Unobtainable: due to mental status Allergic/Immunologic Allergic/Immunologic ED: Denies urticaria EXAM Physical Exam Const Vital Signs: 06/29/22 22:19 06/29/22 22:24 Temperature 98.1 F Temperature Source Temporal Pulse Rate 124 H Respiratory Rate 11 L Blood Pressure 93/70 Blood Pressure Mean 77 Pulse Ox 94 Oxygen Delivery Method Room Air Positive well nourished and well developed General Appearance ED: well developed HEENT Reports moist mucous membranes Eyes PERRL Neck no lymphadenopathy Resp normal respiratory effort and clear to auscultation bilaterally Cardio Rate: tachycardic GI non-tender Auscultation: hypoactive bowel sounds Palpation: soft Extremity normal to inspection Neuro Neuro Narrative: Patient rest with eyes closed. Will follow some commands such as grasping my hand. Will not follow other commands. She is spontaneously moving all 4 extremities. Skin no rashes or lesions noted MDM MDM MDM Narrative Medical decision making narrative: Patient sent immediately to CT. Lab work, EKG, chest x-ray obtained. Lab Data Attestation: I reviewed the patient's lab results. Labs: Laboratory Results - last 24 hr 06/29/22 06/29/22 06/29/22 22:48 23:15 23:25 WBC RBC Hgb Hct MCV MCH MCHC RDW Std Deviation RDW Coeff of Deonte Plt Count MPV Immature Gran % (Auto) Neut % (Auto) Lymph % (Auto) [place] % (Auto) Eos % (Auto) Baso % (Auto) Absolute Neuts (auto) Absolute Lymphs (auto) Nucleated RBC % Sodium Potassium Chloride Carbon Dioxide Anion Gap BUN Creatinine Estim Creat Clear Calc Est GFR (MDRD) Af Amer Est GFR (MDRD) Non-Af BUN/Creatinine Ratio Glucose Lactic Acid 0.5 Calcium Total Bilirubin Direct Bilirubin AST ALT Alkaline Phosphatase Troponin I High Sens Total Protein Albumin Globulin Lipase Urine Opiates Screen POSITIVE H Urine Methadone Screen NEGATIVE Ur Barbiturates Screen NEGATIVE Ur Phencyclidine Scrn NEGATIVE Ur Amphetamines Screen NEGATIVE MDMA (Ecstasy) Screen NEGATIVE U Benzodiazepines Scrn POSITIVE H Urine Cocaine Screen NEGATIVE U Cannabinoids Screen NEGATIVE Ur Drug Screen Comment Ethyl Alcohol 4.0 06/29/22 06/29/22 Unknown Unknown WBC 9.0 RBC 3.89 L Hgb 10.5 L Hct 35.6 L MCV 91.5 MCH 27.0 MCHC 29.5 L RDW Std Deviation 51.2 H RDW Coeff of Deonte 15.5 H Plt Count 209 MPV 10.8 Immature Gran % (Auto) 0.900 Neut % (Auto) 54.6 Lymph % (Auto) 31.7 [place] % (Auto) 9.9 Eos % (Auto) 2.1 Baso % (Auto) 0.8 Absolute Neuts (auto) 4.9 Absolute Lymphs (auto) 2.85 Nucleated RBC % 0 Sodium 143 Potassium 4.0 Chloride 104 Carbon Dioxide 39.0 H Anion Gap 0 L BUN 15 Creatinine 0.93 Estim Creat Clear Calc 57.08 Est GFR (MDRD) Af Amer 77 Est GFR (MDRD) Non-Af 64 BUN/Creatinine Ratio 16.1 Glucose 102 Lactic Acid Calcium 8.8 Total Bilirubin 0.40 Direct Bilirubin 0.14 AST 130 H ALT 64 H Alkaline Phosphatase 157 H Troponin I High Sens 35 Total Protein 7.1 Albumin 3.5 Globulin 3.6 Lipase 254 Urine Opiates Screen Urine Methadone Screen Ur Barbiturates Screen Ur Phencyclidine Scrn Ur Amphetamines Screen MDMA (Ecstasy) Screen U Benzodiazepines Scrn Urine Cocaine Screen U Cannabinoids Screen Ur Drug Screen Comment Ethyl Alcohol Radiography Chest X-Ray - ED: 1 View, Read by ED Physician, Normal, Heart, Lungs and Mediastinum Diagnostic Testing: Clinical Impression(s) from Imaging Studies Brain CT 06/29/22 22:28 IMPRESSION: Decreased size of right cerebral convexity extra-axial fluid collection. No new abnormal intracranial finding. Electronically Signed: Jadon Chandler MD at 22:50 EST , Chest X-Ray 06/29/22 22:30 IMPRESSION: No radiographic evidence of acute cardiopulmonary disease. Electronically Signed: Jadon Chandler MD at 22:51 EST , EKG Initial EKG: Attestation: I personally reviewed and interpreted this EKG as follows: Interpretation: Sinus Tachycardia (Sinus tach at 123. No acute ischemia.) Treatment and Re-Evaluation Narrative: Patient's head CT was immediately reviewed by myself. I see no obvious sign of hemorrhage. Areas of old stroke are noted. Patient is ordered 0.5 mg of IV Ativan and 1 g of Keppra as I am concerned that her symptoms are secondary to seizure activity. CBC returns with normal white count at 9.0. Hemoglobin is 10.5. Chemistry studies are unremarkable. LFTs significant for AST of 130, ALT of 64, alk phos 157. Troponin is normal at 35. Chest x-ray per my interpretation reveals no acute findings. Radiology read is reviewed and confirms. Radiology read of CT scan indicates no new intracranial abnormality. On repeat evaluation patient is sleeping comfortably. Significant other and brother are at bedside with her. Nursing staff advises me that after receiving the Ativan and Keppra they have not noticed any more of the stiffening episodes. I will speak with hospitalist regarding admission. Discharge Plan Triage Chief Complaint: Mental Status Change ED Provider: Jackie Figueroa Dx/Rx/DC Orders Clinical Impression: Altered mental status, Seizure-like activity Prescriptions: No Action albuterol sulfate [Ventolin HFA] 90 mcg/actuation HFA aerosol inhaler 2 puff inhalation Q4H PRN (Reason: shortness of breath or wheezing) Qty: 18 6RF escitalopram oxalate [Lexapro] 10 mg tablet 10 mg PO DAILY mecobalamin (vitamin B12) 5,000 mcg tablet,disintegrating 5,000 mcg PO DAILY zolpidem 10 mg tablet 10 mg PO QHS PRN (Reason: Sleep) losartan 25 mg tablet 25 mg PO DAILY spironolactone 25 mg Tablet 12.5 mg PO DAILY Hold Instructions: symptoms of low blood pressure 12/02/21 Label Comments: on hold until instructed to resume pantoprazole [Protonix] 40 mg Tablet,Delayed Release (Dr/Ec) 40 mg PO DAILY ropinirole 0.5 mg Tablet 0.5 mg PO QHS folic acid 1 mg Tablet 1 mg PO DAILY aspirin 81 mg Tablet 81 mg PO DAILY duloxetine 60 mg Capsule,Delayed Release(Dr/Ec) 60 mg PO DAILY cholecalciferol (vitamin D3) [Vitamin D3] 25 mcg (1,000 unit) Tablet 25 mcg PO DAILY potassium chloride 20 mEq Tablet Extended Release 20 meq PO DAILY albuterol sulfate 1.25 mg/3 mL Solution For Nebulization 1.25 mg INHALATION Q4H PRN (Reason: Shortness Of Breath Or Wheezing) hydroxyzine pamoate [Vistaril] 25 mg capsule 25 mg PO BID PRN (Reason: itching) Qty: 20 0RF prednisone 20 mg tablet 60 mg PO DAILY Qty: 15 0RF hydrocodone-acetaminophen [hydrocodone-acetaminophen] 5-325 mg tablet 1 tab PO Q4H PRN PRN (Reason: Pain) 2 Days Qty: 10 0RF cephalexin [cephalexin] 500 mg capsule 500 mg PO Q8H Qty: 30 0RF [id number] 100-62.5-25 mcg blister with device 1 inh inhalation DAILY Qty: 60 3RF Primary Care Provider: Maryam Pineda Referrals: Maryam Pineda MD [Primary Care Provider] - Disposition Disposition: Acute Care Hospital [facility]
[2022-06-29 23:42] LABS: Mucous, Urine 0 SEEN /hpf (<or=2+); Squamous Epithelial Cells - UA 0 SEEN /hpf (5-10)
[2022-06-29 23:44] LABS: Color, Urine Yellow (Yellow); Glucose, Dipstick Normal (Normal); Ketone-Dipstick 5 mg/dl (Negative); Leukocyte Esterase-Dipstick 500 /ul (Negative); Nitrite-Dipstick Negative (Negative); Occult Blood-Urine 10 /ul (Negative); Protein-Dipstick 30 mg/dl (Negative); Specific Gravity, Urine 1.025 (1.002-1.030); Urine Bilirubin Dipstick Negative (Negative); Urine Clarity Clear (Clear); Urine Urobilinogen Normal (Normal)
[2022-06-29 23:48] LABS: Lactic Acid 0.5 mmol/L (0.4-1.9)
[2022-06-30] VITALS (79 sets, daily range): BP systolic 46–146; BP diastolic 30–121; PULSE 85–131; RESP 12–27; TEMP 37.1–39.2; O2SAT 88–100; BMI 22.9
[2022-06-30 00:04] LABS: Amphetamine Urine VISTA NEGATIVE (<1000 ng/mL); Barbiturate Urine VISTA NEGATIVE (< 200 ng/mL); Benzodiazepine Urine VISTA POSITIVE (< 200 ng/mL); Cocaine Urine VISTA NEGATIVE (< 300 ng/mL); Ecstacy Urine VISTA NEGATIVE (< 500 ng/mL); Methadone Urine VISTA NEGATIVE (< 300 ng/mL); PCP Urine VISTA NEGATIVE (< 25 ng/mL); THC Urine VISTA NEGATIVE (< 50 ng/mL); Vista UDS pH Range 4
--- NOTE | 2022-06-30 00:31 | ED.RN ---
DINORAH KILPATRICK RECEIVED REPORT FOR PATIENT AND WILL WAIT FOR DR MATTHEWS TO SEE THE PATIENT FIRST
[2022-06-30 00:54] LABS: Red Blood Cells-Urine 0-5 SEEN /hpf (0-5)
[2022-06-30 00:55] LABS: Bacteria 3+ /hpf (None Seen); Renal Epithelial Cells 0-5 SEEN /hpf (0-5); Transitional Epithelial - Ur 0-5 SEEN /hpf (0-5); White Blood Cells 25-50 SEEN /hpf (0-5)
--- NOTE | 2022-06-30 00:56 | HP.PCM.HOS_ITS ---
HPI - General General Date of Admission: 06/30/22 Date of Service: 06/30/22 Chief Complaint: Unresponsive, episodes of suspected seizure-like activity HPI Narrative The patient is a 66 y/o F w/ PMHx: RLS, Hx EtOH Abuse, Anxiety and Depression, COPD with chronic respiratory failure with hypoxic and hypercapnia (2L NC), Chronic anemia, Hx Takotsubo cardiomyopathy, Chronic Systolic CHF, Hx CVA w/ most recent 01/2022 Hemorrhagic CVA requiring transfer to [facility] and surgical intervention at that time, Hx VTE, TIO, Former tobacco use who presents to the [facility] ED on 06/29/22 with history of increased confusion and forgetfulness the day prior with reminder per her family specifically her daughter to assure that she is using oxygen which she had not been with improvement following utilization of her chronic 2 L nasal cannula; however, later in the evening patient significant other noted that she was becoming less responsive and having difficulty maintaining appropriate oxygenation with concern per daughter upon arrival of worsening status with unresponsiveness and episodes where she would stiffen her extremities and pull her arms up to her chest with the appearance of seizure- like activity prompting EMS call. Did discuss frankly patient's prior alcohol abuse history and both the brother and the daughter in the room state that patient has denied any ongoing alcohol use. Work-up in the ED included T98.1, heart rate 124, BP 93/70, respiratory rate 11, 94% on room air, CT of the brain with decreased size of right cerebral convexity extra-axial fluid collection with no new abnormal intracranial finding, chest x-ray with no acute ca rdiopulmonary findings, CBC with WBC 9.0, hemoglobin 10.5, platelet 209 without marked shift, CMP with complex at 39, lactic acid 0.5, AST/LT 130/64, alk phos 157 otherwise hepatic profile not marked appearing, lipase 254, troponin 35, urinalysis with elevated specific gravity 1.025, protein 30, ketone 5, occult blood 10, negative nitrite, leukocyte Estrace 500, urine WBCs 25-50 with 3+ urine bacteria, UDS with positive opiates and benzodiazepine, ethyl alcohol level 4.0, blood culture x2 pending per ED, urine culture pending per ED, rapid COVID antigen and influenza antigen negative, EKG with sinus tachycardia with no acute evidence of ischemia. In the ED patient was administered normal saline boluses as well as IV Ativan and eventually an IV Keppra load as she was having stiffening episodes and since load administration clinically appear to improved per discussion with ED physician. In the ED patient ministered normal saline 1 L bolus followed by maintenance IV fluids, Ativan 0.5 mg IV x1 and loaded with Keppra 1000 mg x 1. PFSH Medical History Alcohol abuse Anxiety Anxiety and depression Chronic anemia Chronic systolic (congestive) heart failure CO2 narcosis Congestive heart failure (CHF) COPD (chronic obstructive pulmonary disease) Daytime hypersomnia Essential (primary) hypertension Fall GERD (gastroesophageal reflux disease) Head concussion Hemorrhagic cerebrovascular accident (CVA) (02/09/17) History of DVT of lower extremity (02/11/17) History of non-ST elevation myocardial infarction (NSTEMI) (02/03/17) Hypercarbia Hyperlipidemia Insomnia Ischemic cerebrovascular accident (CVA) (02/06/17) Non-ischemic cardiomyopathy Non-rheumatic mitral regurgitation TIO (obstructive sleep apnea) Respiratory insufficiency Secondary pulmonary arterial hypertension Stroke Takotsubo cardiomyopathy (06/17/21) TIA (transient ischemic attack) (10/25/19) Weakness due to old stroke Home Medications aspirin 81 mg tablet 81 mg PO DAILY heart health 11/03/20 [History Last Taken Unknown] cholecalciferol (vitamin D3) 25 mcg (1,000 unit) tablet (Vitamin D3) 25 mcg PO DAILY supplement 11/03/20 [History Last Taken Unknown] duloxetine 60 mg capsule,delayed release 60 mg PO DAILY depression 11/03/20 [History Last Taken Unknown] folic acid 1 mg tablet 1 mg PO DAILY supplement 11/03/20 [History Last Taken Unknown] pantoprazole 40 mg tablet,delayed release (Protonix) 40 mg PO DAILY GERD 11/03/20 [History Last Taken Unknown] potassium chloride 20 mEq tablet,extended release 20 meq PO DAILY supplement 11/03/20 [History Last Taken Unknown] ropinirole 0.5 mg tablet 0.5 mg PO QHS RLS 11/03/20 [History Last Taken Unknown] spironolactone 25 mg tablet 12.5 mg PO DAILY BP 11/03/20 [History Last Taken Unknown] albuterol sulfate 90 mcg/actuation aerosol inhaler (Ventolin HFA) 2 puff inhalation Q4H PRN shortness of breath or wheezing #18 grams 12/23/20 [Rx Last Taken Unknown] albuterol sulfate 1.25 mg/3 mL solution for nebulization 1.25 mg inhalation Q4H PRN Shortness Of Breath Or Wheezing 06/15/21 [History Last Taken Unknown] escitalopram oxalate 10 mg tablet (Lexapro) 10 mg PO DAILY 07/07/21 [History Last Taken Unknown] mecobalamin (vitamin B12) 5,000 mcg disintegrating tablet 5,000 mcg PO DAILY 07/07/21 [History Last Taken Unknown] losartan 25 mg tablet 25 mg PO DAILY 12/02/21 [History Last Taken Unknown] zolpidem 10 mg tablet 10 mg PO QHS PRN Sleep 12/02/21 [History Last Taken Unknown] hydroxyzine pamoate 25 mg capsule (Vistaril) 25 mg PO BID PRN itching #20 caps 12/06/21 [Rx Last Taken Unknown] prednisone 20 mg tablet 60 mg PO DAILY #15 TABLETS 02/26/22 [Rx Last Taken Unknown] hydrocodone-acetaminophen 5-325mg 5mg-325mg 1 tab PO Q4H PRN PRN Pain 2 days #10 TABLETS 03/19/22 [Rx Last Taken Unknown] cephalexin 500 mg capsule 500 mg PO Q8H #30 caps 03/20/22 [Rx Last Taken Unknown] fluticasone fur. 100 mcg-umeclid 62.5 mcg-vilant 25 mcg inhalat.powder 1 inh inhalation DAILY COPD #60 ea 04/14/22 [Rx Last Taken Unknown] Allergy/AdvReac Type Severity Reaction Status Date / Time tetanus and diphtheria Allergy Hives Verified 06/29/22 22:19 toxoids [tetanus & diphtheria toxoids] Family History Sister Cancer lung Father Cancer lung Mother Cancer lung Surgical History H/O: section History of bilateral cataract extraction History of cholecystectomy History of left heart catheterization (06/17/21) History of lumpectomy Hx of appendectomy Social History household members: none Smoking Status: Former smoker how long ago did patient quit smokin, 1pk/day second hand exposure: Yes alcohol intake: former substance use type: does not use what type of physical activity do you participate in: walking frequency: daily ROS Review of Systems ROS Unobtainable: due to encephalopathy and due to mental status Vital Signs Vital Signs Vital Signs: 06/29/22 22:19 06/29/22 22:24 06/30/22 00:06 Temperature 98.1 F Temperature Source Temporal Pulse Rate 124 H 111 H Respiratory Rate 11 L 20 H Blood Pressure 93/70 97/40 L Blood Pressure Mean 77 59 Pulse Ox 94 99 Oxygen Delivery Method Room Air Room Air Oxygen Flow Rate (L/min) 06/30/22 00:19 Temperature 98.7 F Temperature Source Temporal Pulse Rate 110 H Respiratory Rate 20 H Blood Pressure 104/68 Blood Pressure Mean 80 Pulse Ox 98 Oxygen Delivery Method Nasal Cannula Oxygen Flow Rate (L/min) 3 Weight Weight: 135 lb 12.876 oz Body Mass Index (BMI) 73.6 Physical Exam Narrative Physical Examination: General: Patient does not awaken to stimuli, not alert, not able to answer any orientation questions, laying in the bed, pinpoint pupils evident. Skin: Normal color, normal turgor, no icterus, no cyanosis. HEENT: AT/NC, EOM unable to be assessed given current status, pupils equal, bilaterally pinpoint, dry MM, no carotid bruits or JVD noted. Lungs: Diminished, greater bases, mildly increased respiratory rate but no distress evident no rales, ronchi or wheezing. Heart: Mildly tachycardic with regular rhythm; no gallop, rub audible. Abdomen: Soft, NTTP, ND, distant normal BS, no HSM. Extremities: No cyanosis, clubbing, or edema. Neurological: Patient does not awaken to stimuli, not alert, not able to answer any orientation questions, laying in the bed, pinpoint pupils evident, cognitive function not baseline intact; pupils equally pinpoint and sluggish, cranial nerves unable to be assessed well given current unresponsive status, not responsive to stimuli. Psychiatric: Affect appears flat, no acute evidence of depressive or anxiety feelings. Results Lab / Micro Data Result Diagrams: 06/29/22 22:15 06/29/22 22:15 Labs: Laboratory Results - last 24 hr 06/29/22 22:48: Lactic Acid 0.5 06/29/22 23:15: Ethyl Alcohol 4.0 06/29/22 23:25: Urine Color Yellow, Urine Clarity Clear, Urine pH 5.0, Ur Specific Baldwin 1.025, Urine Protein 30 H, Urine Glucose (UA) Normal, Urine Ketones 5 H, Urine Occult Blood 10 H, Urine Nitrite Negative, Urine Bilirubin Negative, Urine Urobilinogen Normal, Ur Leukocyte Esterase 500 H, Urine RBC 0-5 SEEN, Urine WBC 25-50 SEEN, Ur Squamous Epith Cells 0 SEEN, Ur Transition Epith Cell 0-5 SEEN, Ur Renal Epithelial Cell 0-5 SEEN, Urine Bacteria 3+, Urine Mucus 0 SEEN 06/29/22 23:25: Urine Opiates Screen POSITIVE H, Urine Methadone Screen NEGATIVE, Ur Barbiturates Screen NEGATIVE, Ur Phencyclidine Scrn NEGATIVE, Ur Amphetamines Screen NEGATIVE, MDMA (Ecstasy) Screen NEGATIVE, U Benzodiazepines Scrn POSITIVE H, Urine Cocaine Screen NEGATIVE, U Cannabinoids Screen NEGATIVE, Ur Drug Screen Comment 06/29/22 : WBC 9.0, RBC 3.89 L, Hgb 10.5 L, Hct 35.6 L, MCV 91.5, MCH 27.0, MCHC 29.5 L, RDW Std Deviation 51.2 H, RDW Coeff of Deonte 15.5 H, Plt Count 209, MPV 10.8, Immature Gran % (Auto) 0.900, Neut % (Auto) 54.6, Lymph % (Auto) 31.7, Gallia % (Auto) 9.9, Eos % (Auto) 2.1, Baso % (Auto) 0.8, Absolute Neuts (auto) 4.9, Absolute Lymphs (auto) 2.85, Nucleated RBC % 0 06/29/22 : Sodium 143, Potassium 4.0, Chloride 104, Carbon Dioxide 39.0 H, Anion Gap 0 L, BUN 15, Creatinine 0.93, Estim Creat Clear Calc 57.08, Est GFR (MDRD) Af Amer 77, Est GFR (MDRD) Non-Af 64, BUN/Creatinine Ratio 16.1, Glucose 102, Calcium 8.8, Total Bilirubin 0.40, Direct Bilirubin 0.14, AST 130 H, ALT 64 H, Alkaline Phosphatase 157 H, Troponin I High Sens 35, Total Protein 7.1, Albumin 3.5, Globulin 3.6, Lipase 254 Micro: Microbiology 06/29/22 23:30 Nasal Secretion SARS-CoV-2 & FLU Antigen (Rapid) - Final Radiology Impression Brain CT 06/29/22 22:28 IMPRESSION: Decreased size of right cerebral convexity extra-axial fluid collection. No new abnormal intracranial finding. Electronically Signed: Jadon Chandler MD at 22:50 EST , Chest X-Ray 06/29/22 22:30 IMPRESSION: No radiographic evidence of acute cardiopulmonary disease. Electronically Signed: Jadon Chandler MD at 22:51 EST , Assessment & Plan Assessment/Plan (1) Altered mental status: (2) Seizure-like activity: PLAN: Plan The patient is a 66 y/o F w/ PMHx: RLS, Hx EtOH Abuse, Anxiety and Depression, COPD with chronic respiratory failure with hypoxic and hypercapnia (2L NC), Chronic anemia, Hx Takotsubo cardiomyopathy, Chronic Systolic CHF, Hx CVA w/ most recent 01/2022 Hemorrhagic CVA requiring transfer to [facility] and surgical intervention at that time, Hx VTE, TIO, Former tobacco use who presents to the [facility] ED on 06/29/22 with history of increased confusion and forgetfulness the day prior with reminder per her family specifically her daughter to assure that she is using oxygen which she had not been with improvement following utilization of her chronic 2 L nasal cannula; however, later in the evening patient significant other noted that she was becoming less responsive and having difficulty maintaining appropriate oxygenation with concern per daughter upon arrival of worsening status with unresponsiveness and episodes where she would stiffen her extremities and pull her arms up to her chest with the appearance of seizure- like activity prompting EMS call. #1. Concern Unresponsive secondary to Post-ictal phase with New-onset seizure, possible encephalopathy related also with #2: Seizure witnessed with postictal state. Improved mental status in the emergency room. CT head without acute intracranial pathology. Will admit to the ICU given concern for patient status, maintain on telemetry, maintain on seizure precautions, will obtain EEG, obtain brain MRI, obtain TSH, UDS obtained per ED with positive opiates and benzodiazepines both of which patient does not have currently prescribed. We will continue Keppra IV regimen with 500 mg twice daily is loaded already in the ED. We will request neurological consultation. As needed Ativan IV for any breakthrough seizures. N.p.o. status given current unresponsive status. Low threshold to intubate if airway becomes unsafe. #2. Acute Urinary Tract Infection: UA upon ED evaluation remarkable, pending UCx, continue IVFs, monitor I/Os, will initiate and continue IV Rocephin w/ transition as able pending sensitivities and speciation. Bld cx x 2 obtained in the ED. #3. Anxiety and Depression: Given current presentation until clinically improved with safe oral intake we will temporarily hold patient home duloxetine and escitalopram regimen. #4. COPD with chronic respiratory failure with hypoxic and hypercapnia: Will maintain on oxygen with wean as tolerated, will temporarily hold home inhalers and transition in the interim to ATC duonebs, PRN albuterol, HOB, IS parameters. #5. Chronic anemia, normocytic: Admission hemoglobin 10.5, baseline hemoglobin primarily 9-10, will repeat level in AM. #6. Hx Takotsubo cardiomyopathy, chart reported history Chronic Systolic CHF: 09/23/2021 echocardiogram with segmental dysfunction with preserved EF, EF 65%, moderate MVI, mild TVI, RVSP 43 mmHg with no evidence for diastolic dysfunction, given current presentation until clinically improved with safe oral intake we will temporarily hold patient home aspirin, losartan, spironolactone, not on beta-marilyn nor diuretic therapy otherwise. Judicious hydration given history. #7. Hx CVA, most recently Hx Hemorrhagic CVA: Patient with prior history of strokes including most recently 01/2022 hemorrhagic stroke requiring transfer to [facility] and intervention at that time, CT head with no acute findings. #8. Hx VTE: Chart reported history of prior lower extremity DVT, chemoprophylaxis ordered as noted #9. TIO: CPAP nightly once acute presentation resolved, NC O2 currently given #1. #10. RLS: We will temporarily hold patient home Requip regimen until clinically improved with safe oral intake #11. Former tobacco use: Encourage continued tobacco cessation. #12. DVT prophylaxis: SCDs, Lovenox. #13. CODE status: Patient HCPNAYELI is her daughter who is present and living will is currently in place. Discussed CODE status at length including difference between FULL code, DNR-CCA and DNR-CC status. Following discussions about the differences in these status, requested Full Code status. Advanced Care Planning Face to Face Time: 16 minutes. Charges/Coding Visit Charges Inpatient E&M: 43193 Init Hosp L3 Procedures Hospitalists Procedures: 19459 Advncd Care Plan 30 Min
--- NOTE | 2022-06-30 01:21 | RAD_ITS ---
We are attempting to reach an attending provider to discuss findings. An addendum with communication details will be sent when the communication is complete. EXAM: XR CHEST, 1 VIEW CLINICAL INDICATION: To confirm ET placement -- Call wet read to MD TECHNIQUE: Frontal view of the chest. 1:42 AM. This report was created using [employer] report generation technology. COMPARISON: Previous chest radiograph of 06/29/2022, 10:33 PM. FINDINGS: LUNGS AND PLEURAL SPACES: No acute pulmonary infiltrates or pleural effusions. No pneumothorax. HEART: Heart size is upper normal with normal pulmonary vasculature for technique. MEDIASTINUM: Mild elongation of the thoracic aorta is again noted. BONES/JOINTS: No acute osseous abnormality. SOFT TISSUES: Minimal vascular calcification is noted within the left side of the neck. TUBES, LINES AND DEVICES: ET tube has been inserted, projected over the trachea, with its tip 2 cm above the claude. NG tube has been inserted and extends into the stomach; the sidehole of the tube is visualized at the level of the proximal gastric body. The distal tip of the NG tube tube lies below the level of the film and is not included on the current radiograph. RAD/Chest 1 View (Portable) IMPRESSION: Satisfactory ET tube positioning. No pneumothorax. NG tube in place, extending into the stomach. Nonstandard communication protocol initiated. Electronically Signed: Rusty Rodriguez MD at 3:05 EST ,
--- NOTE | 2022-06-30 01:21 | RAD_ITS ---
EXAM: XR ABDOMEN, 1 VIEW CLINICAL INDICATION: Confirm OG placement -- Prior to admin of any med,fluid,flush,enteral feed TECHNIQUE: Frontal supine view of the abdomen/pelvis. This report was created using [employer] report generation technology. COMPARISON: Portable chest radiograph of this date. FINDINGS: LOWER THORAX: Visualized lung bases are clear. GASTROINTESTINAL TRACT: Moderate amount of formed stool noted within the colon. No distended small bowel loops are seen. ORGANS: Unremarkable as visualized. No organomegaly. No abnormal calcifications. BONES/JOINTS: No acute pathology. Lower lumbar facet arthritis. TUBES, LINES AND DEVICES: OG tube is in place, again seen extending into the stomach. Distal tip of the OG tube is projected in the region of the gastric mid body. Sidehole of tube lies within the stomach at the level of the proximal gastric body. RAD/Abdomen Single View (Portable) IMPRESSION: Satisfactory OG tube positioning. Electronically Signed: Rusty Rodriguez MD at 3:07 EST ,
[2022-06-30] MEDS: Naloxone 0.4 MG/ML Syringe IV (01:24)
[2022-06-30 01:27] LABS: Magnesium 2.1 mg/dL (1.6-2.6)
--- NOTE | 2022-06-30 01:30 | NURSING ---
Dr Buitrago at bedside, hr 131, bp 146/106, co2 41. attempting intubation 2mg ivp versed 20mg etomidate ivp
[2022-06-30] MEDS: Etomidate 20 MG/10 ML Vial IV (01:32)
[2022-06-30] MEDS: Midazolam 2 MG/2 ML Syringe IV (01:32)
--- NOTE | 2022-06-30 01:32 | NURSING ---
Dr Buitrago attempting intubation,hr 144
--- NOTE | 2022-06-30 01:33 | NURSING ---
pt intubated by Dr Buitrago, positiive color change, 23cm at lip, spo2 95%, 7.5 ett.
--- NOTE | 2022-06-30 01:34 | NURSING ---
HR 154, HR 83/70
[2022-06-30] MEDS: Propofol 10MG/Ml 1,000 MG/100 ML Bottle 3.5 MG CONT INF (01:35)
--- NOTE | 2022-06-30 01:37 | NURSING ---
50 MCG PROPOFOL GIVEN IVP PER DR MATTHEWS
--- NOTE | 2022-06-30 01:38 | NURSING ---
OG placed per Dr Buitrago
--- NOTE | 2022-06-30 01:41 | NURSING ---
cxr and kub at this time.
[2022-06-30] MEDS: LORazepam 2 MG/ML Syringe IV (01:45)
[2022-06-30 01:58] LABS: Phosphorus 4.8 mg/dL (2.5-4.9)
[2022-06-30] MEDS: 0.9% Saline Lock 10 ML Syringe IV ×3 (02:04→05:50)
[2022-06-30] MEDS: 0.9% Normal Saline 1,000 ML 125 ML IV ×3 (02:05→20:24)
[2022-06-30] MEDS: Famotidine 200 MG/20 ML MDV 20 MG in 0.9% Normal Saline (Pres. free 8 ML 300 MG IV ×3 (02:05→21:27)
--- NOTE | 2022-06-30 02:17 | PN.HOSP_ITS ---
Hospitalist Note Intubation Note: Patient with worsening neurological status with inability to safely maintain airway, lack of gag reflex therefore decision for airway protection to intubate. Discussed status with family and they were amenable. During discussions did report that attempted Narcan with patient and patient did transiently wake up within dilation of pupils as she had been pinpoint upon evaluation and transition to the ICU. Family now does admit that it is a possibility that she has used some kind of drug as this has been noted prior. Family also now admits that she may have recently started drinking again but they note that the last beer intake was potentially 1 week prior. At that time she was noted to only drink 2 beers. Medications administered: Etomidate 20 mg, Versed 2.5 mg ETT size: 7.5 Patient intubated in standard fashion with visualization of the vocal cords and passage of the ETT. Positioning verified with auscultation. Post-intubation CXR requested. Patient is maintained in the ICU with business area manager consultation pending. Propofol and fentanyl drips have been requested. While attempting to intubate patient had recurrent seizure-like activity and was administered Ativan 2 mg IV x1 as well as propofol bolus. Given breakthrough seizure activity even through recent Keppra load will also load with Dilantin and continue maintenance dosing. Again from discussion with family and response to Narcan transiently do suspect that patient likely has taken some type of drug mixed with a narcotic that is responsible for her current neurological seizure status. Procedures Hospitalists Procedures: [id number] Insert Emergency Airway
[2022-06-30] MEDS: Ipratropium/Albuterol Sulfate 3 ML AMPUL.NEB INHALATION ×4 (02:25→19:13)
[2022-06-30 02:38] LABS: CPK Total, Creatine Kinase 91 U/L (26-192); Triglycerides 83 mg/dL
--- NOTE | 2022-06-30 02:45 | PCM.HOSP.N ---
Hospitalist Note Patient became significantly hypotensive, BP dropped into the 40s, propofol being held, IVF bolus being administered, NEP will be ordered.
[2022-06-30] MEDS: 0.9% Normal Saline 1,000 ML 999 ML IV (02:50)
[2022-06-30] MEDS: Ceftriaxone 1 GM/50 ML BAG IV ×2 (03:04→22:04)
[2022-06-30 03:30] LABS: Allen Test Positive; Base Excess 7 mmol/L (-2 to +2); Bicarbonate 33.9 mmol/L (22-26); Blood Gas Specimen Type ART; FI02 90; Mode AC; O2 Delivery Device Adult Vent; PEEP 5; PO2 348 mmHG (75-100); RR 12; SITE L Radial; SO2 100 % (95-99); Total Carbon Dioxide 36 mmol/L; Vt 400; pCO2 75.8 mmHg (35-45); pH 7.26 (7.35-7.45)
[2022-06-30] MEDS: Phenylephrine 1 MG/10 ML SYRINGE IV (03:51)
[2022-06-30 04:06] LABS: Absolute Lymphocyte Count 3.32 X10^3/uL (0.83-4.51); Absolute Neutrophil Count 5.7 X10^3/uL (2.0-7.7); Basophil# 0.04 X10^3/uL; Basophil% 0.4 % (0-1); Eosinophil# 0.11 X10^3/uL; Eosinophils% 1.1 % (0-5); Hematocrit 31.1 % (37-47); Hemoglobin 8.8 g/dL (12.0-15.0); Lymphocyte # 3.32 X10^3/ul (0.83-4.51); Lymphocyte % 32.5 % (19-41); Mean Corp Hgb Conc 28.3 g/dL (32-36); Mean Corpuscular Hgb 26.9 pg (27.0-32.0); Mean Corpuscular Volume 95.1 fL (81-99); Mean Platelet Vol. 11.7 fl (6.2-12.0); Monocyte# 1.02 X10^3/uL; NRBC Flagged by Analyzer 0 % (0-5); Neutrophil # 5.68 X10^3/uL (2.7-7.7); Neutrophil % 55.5 % (47-70); POSITIVE COUNT YES; Platelet Count 70 K/mm3 (150-450); RBC Distribution Width CV 15.5 % (11.6-14.6); RBC Distribution Width SD 54.7 fl (35.1-43.9); Red Blood Count 3.27 M/mm3 (4.2-5.4); White Blood Count 10.2 K/mm3 (4.4-11.0)
[2022-06-30 04:09] LABS: Differential Indicated SCAN CRITERIA MET
[2022-06-30 04:19] LABS: Anisocytosis 1+
[2022-06-30 04:20] LABS: Platelet Estimate MOD DEC (ADEQ)
[2022-06-30 04:23] LABS: ALB/GLOB Ratio 0.9 RATIO (0.9-2.4); AST(SGOT) 99 U/L (15-37); Alanine Aminotransfer ALT/SGPT 63 U/L (13-56); Albumin, Serum 2.7 g/dL (3.2-5.0); Alkaline Phosphatase 129 U/L (45-117); Anion Gap 0 (5-15); BUN 15 mg/dL (7-18); BUN/Creat Ratio 15.2 RATIO (10-20); Calcium,Total 7.9 mg/dL (8.5-10.1); Chloride 106 mmol/L (98-107); Creatinine, Serum 0.99 mg/dL (0.55-1.02); EST Glomerular Filtration Rate 59 mL/min (>60); Est Glom Filt Rate - Afr Amer 72 mL/min (>60); Estimated Creatinine Clearance 45.61 ml/min; Globulin 2.9 g/dL (2.2-4.2); Glucose 104 mg/dL (74-106); Potassium 4.1 mmol/L (3.5-5.1); Protein, Total 5.6 g/dL (6.4-8.2); Sodium Level 144 mmol/L (136-145); Thyroid Stim Hormone (TSH) 6.84 uIU/mL (0.358-3.74)
[2022-06-30] MEDS: Phenytoin Na 100 MG/2 ML Vial IV ×3 (05:36→21:25)
[2022-06-30] MEDS: LORazepam 2 MG/ML Syringe 1 MG IV (05:50)
--- NOTE | 2022-06-30 05:55 | MRI_ITS ---
INDICATION: seizure-new, prior strokes EXAMINATION: MRI - MR Brain W/O Contrast TECHNIQUE: Multiplanar and multisequence MR images of the brain were obtained with gadolinium. IV Contrast Dosage and Agent: None. COMPARISON: 06/29/[address] FINDINGS: BRAIN PARENCHYMA: No MRI evidence of hemorrhage. No evidence of acute infarct. No intracranial mass or mass effect. Bilateral posterior cerebral encephalomalacia with surrounding gliosis redemonstrated. There is associated hemosiderin staining. Normal sella turcica, pituitary gland, infundibular stalk, optic chiasm and hypothalamus. The internal auditory canals are patent. Posterior fossa structures are unremarkable. CSF SPACES: Thin right subdural collection is not significantly changed compared to 06/29/2022 CT. There is some associated hemosiderin staining without significant blooming artifact to suggest acute rebleed. No hydrocephalus. Basal cisterns are patent. VASCULAR SYSTEM: Normal flow voids in the major intracranial circulation. CALVARIUM, SKULL BASE, PARANASAL SINUSES AND MASTOID AIR CELLS: Right craniotomy are demonstrated. Mild paranasal sinus mucosal thickening. ORBITS: Bilateral ocular lens replacements. MRI/Brain without Contrast IMPRESSION: No new abnormal intracranial finding. Similar appearance of bilateral posterior cerebral encephalomalacia in the right subdural fluid. Electronically Signed: Jadon Chandler MD at 16:20 EST ,
[2022-06-30 06:21] LABS: T4 Free Direct 0.91 ng/dL (0.76-1.46)
[2022-06-30 06:35] LABS: Base Excess 7 mmol/L (-2 to +2); Bicarbonate 30.4 mmol/L (22-26); Blood Gas Specimen Type ART; FI02 35; Mode AC; O2 Delivery Device Adult Vent; PEEP 5; PO2 87 mmHG (75-100); RR 16; SITE R Radial; SO2 97 % (95-99); Total Carbon Dioxide 32 mmol/L; Vt 450; pCO2 41.2 mmHg (35-45); pH 7.48 (7.35-7.45)
--- NOTE | 2022-06-30 06:42 | CON.PCM.CC_ITS ---
Assessment & Plan Assessment/Plan (1) Acute and chronic respiratory failure with hypercapnia: PLAN: Plan RECOMMENDATIONS: 1. Continue empiric antimicrobials. 2. Continue antiepileptics and maintain seizure precautions. 3. Continue current sedation regimen with propofol and fentanyl. 4. Wean Levophed to maintain a mean arterial pressure at or above 65 mmHg. 5. Continue scheduled bronchodilators. 6. Okay to initiate tube feeds from my perspective. 7. Continue appropriate ICU prophylaxis. 8. Obtain EEG and neurology consultation. IMPRESSIONS: 1. Acute on chronic combined respiratory failure The patient has known end-stage COPD and chronic hypoxemic respiratory failure, along with baseline CO2 retention. She has questionable compliance with her outpatient noninvasive ventilator. I do suspect that her acute respiratory decompensation may have been triggered by a postictal state and/or polypharmacy effects. For now, the patient will be maintained on scheduled bronchodilators. FiO2 and PEEP will be weaned to maintain oxygen saturations at or above 90%. Will obtain follow-up arterial blood gas this morning. 2. Encephalopathy Likely metabolic in the setting of CO2 retention and/or related to postictal state in the setting of new onset seizure activity. In addition, there is some question as to whether possible polypharmacy may have also been contributing, the patient was positive for benzodiazepines and opiates on her toxicology screen. The patient has already been loaded with antiepileptics. She is scheduled to undergo an EEG and MRI today. Neurology consultation will be obtained. Plan to continue seizure precautions and as needed Ativan. 3. Multifactorial shock The patient initially developed hypotension as a consequence of sedative medication use. Therefore, her hemodynamic instability may be the consequence of the propofol and fentanyl currently being utilized to keep her comfortable while intubated. Alternatively, there is some concern for an underlying urinary tract source of infection, making sepsis a possibility. Regardless, the patient has been fluid resuscitated and will remain on Levophed to maintain a mean arterial pressure at or above 65 mmHg. 4. History of end-stage COPD/chronic hypoxemic respiratory failure/obstructive sleep apnea/frequent COPD exacerbations The patient has a known history of end-stage COPD with questionable outpatient medical compliance. The patient has had compliance issues in the past related to her supplemental oxygen use and noninvasive ventilator utilization. She will be maintained on scheduled bronchodilators for now. Management as noted above. 5. History of hemorrhagic CVA/former tobacco dependency/history of cardiomyopathy/anxiety/depression Complicates care, management, recovery and prognosis. Okay to initiate tube feeds today from my perspective. Continue supportive measures as noted above. TIME: 42 minutes of critical care time, independent of procedures, was spent addressing the patient's acute on chronic combined respiratory failure, encephalopathy, multifactorial shock, review of all data and collaboration with the care team. HPI Consult Data Date of Consult: 07/01/22 HPI Narrative Reason for Consultation: Encephalopathy, acute on chronic respiratory failure HPI Narrative: The patient is a 66-year-old female, with a history as outlined below, who presented to the emergency department via EMS on June 29 with altered mentation and shortness of breath. The patient has a known history of end-stage COPD, chronic hypoxemic respiratory failure with a baseline 2 L/min requirement and nicotine dependency, in remission. Due to a history of frequent COPD exacerbations, the patient was previously initiated on an astral noninvasive ventilator in her home environment. However, during her last office visit, she was only noted to be partially compliant with use of her noninvasive ventilator. Although the patient has suffered from strokes in the past, she has no documented history of epilepsy. On presentation to the emergency department, the patient was noted to be afebrile but was tachycardic and tachypneic with tenuous hemodynamics. Initial laboratory evaluation revealed no evidence of a leukocytosis. Chemistry profile was notable for a chronically elevated bicarbonate of 39. Lactate was within normal limits. AST and ALT were increased at 130 and 64, respectively. Urine analysis was positive for leukocyte Estrace and 3+ urine bacteria. Toxicology screen was positive for opiates and benzodiazepines. CT head demonstrated no acute intracranial process. Initial chest x-ray was clear. In the emergency department, the patient received supplemental IV fluid hydration along with IV Ativan and Keppra over concerns for possible seizure activity. The patient was also initiated on antimicrobials. She was subsequently admitted to the medical intensive care unit for further management. Overnight, the patient's mentation decompensated and there was concern over the patient's ability to maintain her airway. Therefore, she was emergently intubated. Shortly after intubation, the patient developed hypotension, requiring Levophed initiation. In addition, she apparently developed seizure- like activity and was treated with IV Ativan as well as a propofol bolus. [facility] Medical History Alcohol abuse Anxiety Anxiety and depression Chronic anemia Chronic systolic (congestive) heart failure CO2 narcosis Congestive heart failure (CHF) COPD (chronic obstructive pulmonary disease) Daytime hypersomnia Essential (primary) hypertension Fall GERD (gastroesophageal reflux disease) Head concussion Hemorrhagic cerebrovascular accident (CVA) (02/09/17) History of DVT of lower extremity (02/11/17) History of non-ST elevation myocardial infarction (NSTEMI) (02/03/17) Hypercarbia Hyperlipidemia Insomnia Ischemic cerebrovascular accident (CVA) (02/06/17) Non-ischemic cardiomyopathy Non-rheumatic mitral regurgitation TIO (obstructive sleep apnea) Respiratory insufficiency Secondary pulmonary arterial hypertension Stroke Takotsubo cardiomyopathy (06/17/21) TIA (transient ischemic attack) (10/25/19) Weakness due to old stroke Home Medications aspirin 81 mg tablet 81 mg PO DAILY heart health 11/03/20 [History Last Taken Unknown] cholecalciferol (vitamin D3) 25 mcg (1,000 unit) tablet (Vitamin D3) 25 mcg PO DAILY supplement 11/03/20 [History Last Taken Unknown] duloxetine 60 mg capsule,delayed release 60 mg PO DAILY depression 11/03/20 [History Last Taken Unknown] folic acid 1 mg tablet 1 mg PO DAILY supplement 11/03/20 [History Last Taken Unknown] pantoprazole 40 mg tablet,delayed release (Protonix) 40 mg PO DAILY GERD 11/03/20 [History Last Taken Unknown] potassium chloride 20 mEq tablet,extended release 20 meq PO DAILY supplement 11/03/20 [History Last Taken Unknown] ropinirole 0.5 mg tablet 0.5 mg PO QHS RLS 11/03/20 [History Last Taken Unknown] spironolactone 25 mg tablet 12.5 mg PO DAILY BP 11/03/20 [History Last Taken Unknown] albuterol sulfate 90 mcg/actuation aerosol inhaler (Ventolin HFA) 2 puff inhalation Q4H PRN shortness of breath or wheezing #18 grams 12/23/20 [Rx Last Taken Unknown] albuterol sulfate 1.25 mg/3 mL solution for nebulization 1.25 mg inhalation Q4H PRN Shortness Of Breath Or Wheezing 06/15/21 [History Last Taken Unknown] escitalopram oxalate 10 mg tablet (Lexapro) 10 mg PO DAILY 07/07/21 [History Last Taken Unknown] mecobalamin (vitamin B12) 5,000 mcg disintegrating tablet 5,000 mcg PO DAILY 07/07/21 [History Last Taken Unknown] losartan 25 mg tablet 25 mg PO DAILY 12/02/21 [History Last Taken Unknown] zolpidem 10 mg tablet 10 mg PO QHS PRN Sleep 12/02/21 [History Last Taken Unknown] hydroxyzine pamoate 25 mg capsule (Vistaril) 25 mg PO BID PRN itching #20 caps 12/06/21 [Rx Last Taken Unknown] prednisone 20 mg tablet 60 mg PO DAILY #15 TABLETS 02/26/22 [Rx Last Taken Unknown] hydrocodone-acetaminophen 5-325mg 5mg-325mg 1 tab PO Q4H PRN PRN Pain 2 days #10 TABLETS 03/19/22 [Rx Last Taken Unknown] cephalexin 500 mg capsule 500 mg PO Q8H #30 caps 03/20/22 [Rx Last Taken Unknown] fluticasone fur. 100 mcg-umeclid 62.5 mcg-vilant 25 mcg inhalat.powder 1 inh inhalation DAILY COPD #60 ea 04/14/22 [Rx Last Taken Unknown] Allergy/AdvReac Type Severity Reaction Status Date / Time tetanus and diphtheria Allergy Hives Verified 06/29/22 22:19 toxoids [tetanus & diphtheria toxoids] Family History Sister Cancer lung Father Cancer lung Mother Cancer lung Surgical History H/O: section History of bilateral cataract extraction History of cholecystectomy History of left heart catheterization (06/17/21) History of lumpectomy Hx of appendectomy Social History household members: none Smoking Status: Former smoker how long ago did patient quit smokin, 1pk/day second hand exposure: Yes alcohol intake: former substance use type: does not use what type of physical activity do you participate in: walking frequency: daily ROS Review of Systems ROS Unobtainable: due to endotracheal tube and due to mental status Physical Exam Const no apparent distress General Appearance: intubated and patient mechanically ventilated HEENT normocephalic and head/scalp atraumatic Mouth: endotracheal tube in place and OG tube in place Eyes PERRL and EOMs intact bilaterally Neck supple General: trachea midline Chest Chest Narrative: Increased AP diameter Resp Auscultation: diminished lung sounds; Negative for rales, rhonchi or wheezes Cardio regular rate and regular rhythm GI normal to inspection, nondistended, normoactive bowel sounds Extremity no clubbing, cyanosis or edema Skin no rashes or lesions noted Neuro Sensorium / Orientation: sedated on vent Lab / Micro Data Result Diagrams: 06/30/22 03:04 06/30/22 03:04 Labs: Laboratory Results - last 24 hr 06/29/22 22:15: WBC 9.0, RBC 3.89 L, Hgb 10.5 L, Hct 35.6 L, MCV 91.5, MCH 27.0, MCHC 29.5 L, RDW Std Deviation 51.2 H, RDW Coeff of Deonte 15.5 H, Plt Count 209, MPV 10.8, Immature Gran % (Auto) 0.900, Neut % (Auto) 54.6, Lymph % (Auto) 31.7, [place] % (Auto) 9.9, Eos % (Auto) 2.1, Baso % (Auto) 0.8, Absolute Neuts (auto) 4.9, Absolute Lymphs (auto) 2.85, Nucleated RBC % 0 06/29/22 22:15: Sodium 143, Potassium 4.0, Chloride 104, Carbon Dioxide 39.0 H, Anion Gap 0 L, BUN 15, Creatinine 0.93, Estim Creat Clear Calc 57.08, Est GFR (MDRD) Af Amer 77, Est GFR (MDRD) Non-Af 64, BUN/Creatinine Ratio 16.1, Glucose 102, Calcium 8.8, Total Bilirubin 0.40, Direct Bilirubin 0.14, AST 130 H, ALT 64 H, Alkaline Phosphatase 157 H, Troponin I High Sens 35, Total Protein 7.1, Albumin 3.5, Globulin 3.6, Lipase 254 06/29/22 22:15: Magnesium 2.1 06/29/22 22:15: Phosphorus 4.8 06/29/22 22:15: Total Creatine Kinase 91, Triglycerides 83 06/29/22 22:48: Lactic Acid 0.5 06/29/22 23:15: Ethyl Alcohol 4.0 06/29/22 23:25: Urine Color Yellow, Urine Clarity Clear, Urine pH 5.0, Ur Specific [place] 1.025, Urine Protein 30 H, Urine Glucose (UA) Normal, Urine Ketones 5 H, Urine Occult Blood 10 H, Urine Nitrite Negative, Urine Bilirubin Negative, Urine Urobilinogen Normal, Ur Leukocyte Esterase 500 H, Urine RBC 0-5 SEEN, Urine WBC 25-50 SEEN, Ur Squamous Epith Cells 0 SEEN, Ur Transition Epith Cell 0-5 SEEN, Ur Renal Epithelial Cell 0-5 SEEN, Urine Bacteria 3+, Urine Mucus 0 SEEN 06/29/22 23:25: Urine Opiates Screen POSITIVE H, Urine Methadone Screen NEGATIVE, Ur Barbiturates Screen NEGATIVE, Ur Phencyclidine Scrn NEGATIVE, Ur Amphetamines Screen NEGATIVE, MDMA (Ecstasy) Screen NEGATIVE, U Benzodiazepines Scrn POSITIVE H, Urine Cocaine Screen NEGATIVE, U Cannabinoids Screen NEGATIVE, Ur Drug Screen Comment 06/30/22 03:04: WBC 10.2, RBC 3.27 L, Hgb 8.8 L, Hct 31.1 L, MCV 95.1, MCH 26.9 L, MCHC 28.3 L, RDW Std Deviation 54.7 H, RDW Coeff of Deonte 15.5 H, Plt Count 70 L, MPV 11.7, Immature Gran % (Auto) 0.500, Neut % (Auto) 55.5, Lymph % (Auto) 32.5, [place] % (Auto) 10.0, Eos % (Auto) 1.1, Baso % (Auto) 0.4, Absolute Neuts (auto) 5.7, Absolute Lymphs (auto) 3.32, Nucleated RBC % 0, Platelet Estimate MOD DEC, Anisocytosis 1+ 06/30/22 03:04: Sodium 144, Potassium 4.1, Chloride 106, Carbon Dioxide 38.0 H, Anion Gap 0 L, BUN 15, Creatinine 0.99, Estim Creat Clear Calc 45.61, Est GFR (MDRD) Af Amer 72, Est GFR (MDRD) Non-Af 59 L, BUN/Creatinine Ratio 15.2, Glucose 104, Calcium 7.9 L, Total Bilirubin 0.40, AST 99 H, ALT 63 H, Alkaline Phosphatase 129 H, Total Protein 5.6 L, Albumin 2.7 L, Globulin 2.9, Albumin/Globulin Ratio 0.9, TSH 6.84 H 06/30/22 03:04: Free T4 0.91 Micro: Microbiology 06/29/22 23:30 Nasal Secretion SARS-CoV-2 & FLU Antigen (Rapid) - Final ABG Data ABG results: ABG 06/30/22 06/30/22 03:24 06:32 Specimen Type ART ART Sample Site L Radial R Radial pH 7.26 L 7.48 H Bicarbonate Actual 33.9 H 30.4 H Total CO2 36 32 Base Excess 7 H 7 H O2 Saturation 100 H 97 O2 % 90 35 ABG pCO2 75.8 H* 41.2 ABG pO2 348 H* 87 Royal Test Positive Respiration Rate 12 16 O2 Delivery Device Adult Vent Adult Vent Vent Mode AC AC Tidal Volume 400 450 POC PEEP 5 5 Crit Call To/Read Back Yes Blood Gas Notified Whom Dr. Buitrago Clinical Comments AV/VC+ Mode Radiology Impression Brain CT 06/29/22 22:28 IMPRESSION: Decreased size of right cerebral convexity extra-axial fluid collection. No new abnormal intracranial finding. Electronically Signed: Jadon Chandler MD at 22:50 EST , Chest X-Ray 06/29/22 22:30 IMPRESSION: No radiographic evidence of acute cardiopulmonary disease. Electronically Signed: Jadon Chandler MD at 22:51 EST , Chest X-Ray 06/30/22 01:21 IMPRESSION: Satisfactory ET tube positioning. No pneumothorax. NG tube in place, extending into the stomach. Nonstandard communication protocol initiated. Electronically Signed: Rusty Rodriguez MD at 3:05 EST , ADDENDUM: 06/30/22 0322 IMPRESSION: Satisfactory ET tube positioning. No pneumothorax. NG tube in place, extending into the stomach. Nonstandard communication protocol initiated. N.B. : The above Results were Read Back by Rusty Rodriguez MD to Yazmin Buitrago MD, and understanding confirmed on 06/30/2022 03:15:40 (ET). Electronically Signed: Rusty Rodriguez MD at 3:05 EST , KUB X-Ray 06/30/22 01:21 IMPRESSION: Satisfactory OG tube positioning. Electronically Signed: Rusty Rodriguez MD at 3:07 EST , Charges/Coding Procedures Hospitalists Procedures: [id number] Critial Care 1st Hr
[2022-06-30] MEDS: Acetaminophen 650 MG Suppository RC (06:54)
--- NOTE | 2022-06-30 07:00 | TELEMED_ITS ---
[facility] Tele[facility] has confirmed receipt of a request for visit. This document confirms receipt of the order initiating the consult. To find the results of the consultation, please view the patient's reports for the scanned Telemed Consult.
[2022-06-30] MEDS: Enoxaparin 40 MG/0.4 ML Syringe SC (10:27)
[2022-06-30] MEDS: Chlorhexidine 15 ML PO ×2 (10:27→21:25)
[2022-06-30] MEDS: TITRATION PARAMETER CHANGE 1 EACH IV (10:28)
[2022-06-30] MEDS: Vital AF 1.2 Cal Liquid 1,000 ML 20 ML GT (12:55)
[2022-06-30] MEDS: Propofol 10MG/Ml 1,000 MG/100 ML Bottle 7 MG CONT INF (13:43)
--- NOTE | 2022-06-30 14:40 | NURSING ---
Addendum entered by Marni Palencia 06/30/22 16:56: Patient returned from MRI at 1615 Original Note: Patient left unit for MRI
--- NOTE | 2022-06-30 18:36 | NURSING ---
Gauze applied over site due to bleeding. Please change bandage in 24 hr
--- NOTE | 2022-06-30 20:47 | PCM.HOSP.N ---
Hospitalist Note Patient was seen and examined briefly in ICU today, she remains on the ventilator under light sedation. Patient's MRI showed evidence of bilateral posterior cerebral encephalomalacia that was similar to her previous CT scan done on 06/29/2022. The encephalomalacia within the right occipital lobe and posterior left parietal lobe was read out as being consistent with chronic cerebrovascular disease as read out on 03/20/2022 Patient's MRI today did not show any evidence of an acute infarction.
[2022-07-01] VITALS (42 sets, daily range): BP systolic 88–148; BP diastolic 46–99; PULSE 96–128; RESP 16–24; TEMP 37.3–38.1; O2SAT 90–98
[2022-07-01] MEDS: Ipratropium/Albuterol Sulfate 3 ML AMPUL.NEB INHALATION ×4 (01:51→19:17)
[2022-07-01] MEDS: Propofol 10MG/Ml 1,000 MG/100 ML Bottle 3.5 MG CONT INF (03:11)
[2022-07-01] MEDS: 0.9% Normal Saline 1,000 ML 125 ML IV ×3 (04:34→20:53)
[2022-07-01] MEDS: Phenytoin Na 100 MG/2 ML Vial IV ×3 (06:45→20:52)
[2022-07-01] MEDS: 0.9% Saline Lock 10 ML Syringe IV ×3 (06:46→20:53)
[2022-07-01 06:57] LABS: Absolute Lymphocyte Count 1.59 X10^3/uL (0.83-4.51); Absolute Neutrophil Count 3.9 X10^3/uL (2.0-7.7); Basophil# 0.03 X10^3/uL; Basophil% 0.5 % (0-1); Eosinophil# 0.11 X10^3/uL; Eosinophils% 1.7 % (0-5); Hemoglobin 8.1 g/dL (12.0-15.0); Lymphocyte # 1.59 X10^3/ul (0.83-4.51); Lymphocyte % 25.1 % (19-41); Mean Corp Hgb Conc 31.2 g/dL (32-36); Mean Corpuscular Hgb 27.2 pg (27.0-32.0); Mean Corpuscular Volume 87.2 fL (81-99); Mean Platelet Vol. 10.1 fl (6.2-12.0); Monocyte# 0.64 X10^3/uL; Monocyte% 10.1 % (0-10); NRBC Flagged by Analyzer 0 % (0-5); Neutrophil # 3.93 X10^3/uL (2.7-7.7); Neutrophil % 62.1 % (47-70); Platelet Count 106 K/mm3 (150-450); RBC Distribution Width CV 16.4 % (11.6-14.6); RBC Distribution Width SD 52.4 fl (35.1-43.9); Red Blood Count 2.98 M/mm3 (4.2-5.4); White Blood Count 6.3 K/mm3 (4.4-11.0)
--- NOTE | 2022-07-01 07:07 | PCM.PN.INT ---
Assessment & Plan Assessment/Plan (1) Acute and chronic respiratory failure with hypercapnia: PLAN: Plan RECOMMENDATIONS: 1. Continue empiric antimicrobials. 2. Continue antiepileptics and maintain seizure precautions. 3. Continue current sedation regimen with propofol and fentanyl. 4. Continue scheduled bronchodilators. 5. Attempt spontaneous awakening trial this morning. 6. Continue tube feeds as tolerated. 7. Continue appropriate ICU prophylaxis. 8. Await EEG interpretation. IMPRESSIONS: 1. Acute on chronic combined respiratory failure The patient has known end-stage COPD and chronic hypoxemic respiratory failure, along with baseline CO2 retention. She has questionable compliance with her outpatient noninvasive ventilator. I do suspect that her acute respiratory decompensation may have been triggered by a postictal state and/or polypharmacy effects. For now, the patient will be maintained on scheduled bronchodilators. FiO2 and PEEP will be weaned to maintain oxygen saturations at or above 90%. Plan for paired spontaneous awakening and breathing trials. 2. Encephalopathy Improving. Likely metabolic in the setting of CO2 retention and/or related to postictal state in the setting of new onset seizure activity. In addition, there is some question as to whether possible polypharmacy may have also been contributing, as the patient was positive for benzodiazepines and opiates on her toxicology screen. Plan to continue current antiepileptics along with seizure precautions and as needed Ativan. 3. Multifactorial shock Improved. The patient initially developed hypotension as a consequence of sedative medication use. Therefore, her hemodynamic instability may be the consequence of the propofol and fentanyl currently being utilized to keep her comfortable while intubated. Alternatively, there is some concern for an underlying urinary tract source of infection, making sepsis a possibility. The patient has been fluid resuscitated. Levophed will be utilized, if needed, to maintain a mean arterial pressure at or above 65 mmHg. 4. History of end-stage COPD/chronic hypoxemic respiratory failure/obstructive sleep apnea/frequent COPD exacerbations The patient has a known history of end-stage COPD with questionable outpatient medical compliance. The patient has had compliance issues in the past related to her supplemental oxygen use and noninvasive ventilator utilization. She will be maintained on scheduled bronchodilators for now. Management as noted above. 5. History of hemorrhagic CVA/former tobacco dependency/history of cardiomyopathy/anxiety/depression Complicates care, management, recovery and prognosis. Okay to continue tube feeds today from my perspective. TIME: 33 minutes of critical care time, independent of procedures, was spent addressing the patient's acute on chronic combined respiratory failure, encephalopathy, multifactorial shock, review of all data and collaboration with the care team. Subjective Subjective The patient was seen and examined at the bedside this morning. Events from the last 24 hours have been reviewed. The patient is currently afebrile, hemodynamically stable and maintaining appropriate oxygen saturations on assist control mode mechanical ventilation with an FiO2 requirement of 30% and PEEP of 5. Nursing staff reported no further seizure activity. The patient is currently sedated on propofol and fentanyl. Her Levophed was weaned off this morning. The patient is currently documented to be overall net +5.7 L for the hospitalization. Objective Data Objective Data The patient's most recent lab work, culture data and imaging studies have all been personally reviewed. Surface echocardiogram from June 2021 demonstrated normal LV size with an ejection fraction of 37%. MRI brain only showed a similar-appearing right subdural fluid collection and bilateral posterior cerebral encephalomalacia. Respiratory viral panel was negative. Blood, urine and sputum cultures are pending. Vital Signs: Vital Signs Temp Pulse Resp BP Pulse Ox O2 Del Method O2 Flow Rate 99.7 F H 97 16 95/54 L 97 Mechanical Ventilator 3 07/01/22 06:00 07/01/22 06:00 07/01/22 06:00 07/01/22 06:00 07/01/22 06:00 07/01/22 06:00 06/30/22 01:30 FiO2 30 07/01/22 06:00 Oxygen Flow Rate (L/min) 3 Oxygen Delivery Method Mechanical Ventilator Weight: 139 lb 15.896 oz Body Mass Index (BMI) 22.9 Intake & Output: Intake and Output for Last 24 Hours 06/29/22 06/30/22 07/01/22 23:59 23:59 23:59 Intake Total 833.33 / 833.33 4387.92 / 4400.97 1216.29 / 1216.29 Output Total 500 / 500 200 / 200 Balance 833.33 / 833.33 3887.92 / 3900.97 1016.29 / 1016.29 Medical Nutrition Assessment Dietitian: Malnutrition Criteria Met Start: 06/30/22 10:32 Freq: Status: Active Protocol: Document 06/30/22 10:33 AG (Rec: 06/30/22 10:33 AG [id number]) Nutrition Malnutrition Evidence of Malnutrition Exists Yes Malnutrition (severe): Chronic Evidenced By Weight Loss (Severe),Physical Changes (Moderate) Clinical Problem Chronic Disease or Condition Related Malnutrition Etiology severe, chronic malnutrition related to predicted inadequate oral intake Signs/Symptoms as evidenced by wt loss of 34. 2#/21% x 9 months, moderate muscle wasting/fat loss in orbital, temporal, clavicle, and acromion areas per physical exam Status Active Problem Recommendation Dietitian Recommendations/Changes NPO while intubated; Via OGT- Vital AF 1.2 at goal rate of 55mL/hour w/ 100mL H2O flush every 4 hours to provide 1584 calories, 99 g protein, and 1670mL total fluid/day. Would start at 20mL/hour and increase by 15mL/hour every 8- 12 hours as tolerated until goal rate is achieved. Lab / Micro Data Attestation: I reviewed the patient's lab results. Result Diagrams: 07/02/22 04:05 07/02/22 04:05 Micro: Microbiology 06/30/22 02:25 Sputum, Tracheal Aspirate Gram Stain - Final 06/30/22 02:35 Mucosa - Nasopharyngeal Respiratory Panel (PCR) - Final 06/29/22 23:30 Nasal Secretion SARS-CoV-2 & FLU Antigen (Rapid) - Final Radiography Diagnostic Testing: Radiology Impression Brain MRI 06/30/22 05:55 IMPRESSION: No new abnormal intracranial finding. Similar appearance of bilateral posterior cerebral encephalomalacia in the right subdural fluid. Electronically Signed: Jadon Chandler MD at 16:20 EST , Physical Exam Const no apparent distress General Appearance: intubated and patient mechanically ventilated HEENT normocephalic and head/scalp atraumatic Mouth: endotracheal tube in place and OG tube in place Eyes PERRL and EOMs intact bilaterally Neck supple General: trachea midline Chest Chest Narrative: Increased AP diameter Resp Auscultation: diminished lung sounds; Negative for rales, rhonchi or wheezes Cardio S1 normal heart sound and S2 normal heart sound Rate: tachycardic GI normal to inspection, nondistended, normoactive bowel sounds Extremity no clubbing, cyanosis or edema General Extremity: edema left upper extremity Skin no rashes or lesions noted Neuro Sensorium / Orientation: sedated on vent Charges/Coding Procedures Hospitalists Procedures: [id number] Critial Care 1st Hr
[2022-07-01 07:14] LABS: Anion Gap 2 (5-15); BUN 16 mg/dL (7-18); BUN/Creat Ratio 24.5 RATIO (10-20); Calcium,Total 7.6 mg/dL (8.5-10.1); Chloride 113 mmol/L (98-107); Creatinine, Serum 0.65 mg/dL (0.55-1.02); EST Glomerular Filtration Rate 96 mL/min (>60); Est Glom Filt Rate - Afr Amer 116 mL/min (>60); Estimated Creatinine Clearance 45.16 ml/min; Glucose 86 mg/dL (74-106); Potassium 2.8 mmol/L (3.5-5.1); Sodium Level 145 mmol/L (136-145)
[2022-07-01] MEDS: Enoxaparin 40 MG/0.4 ML Syringe SC (08:21)
[2022-07-01] MEDS: Chlorhexidine 15 ML PO ×2 (08:21→20:53)
[2022-07-01] MEDS: CHLORHEXIDINE GLUC 2% CLOTH 1 EACH TOWELETTE TOPICAL (08:21)
[2022-07-01] MEDS: Famotidine 200 MG/20 ML MDV 20 MG in 0.9% Normal Saline (Pres. free 8 ML 300 MG IV ×2 (08:25→20:52)
--- NOTE | 2022-07-01 08:59 | PCM.PN.HOSP ---
Subjective Subjective Patient was seen and examined today, she remains on sedation on the ventilator at this time. Talked briefly with critical care about her care. Objective Data Objective Data Vital Signs: Vital Signs Temp Pulse Resp BP Pulse Ox O2 Del Method O2 Flow Rate 100.2 F H 128 H 18 109/55 L 90 Mechanical Ventilator 3 07/01/22 08:00 07/01/22 08:49 07/01/22 08:49 07/01/22 08:00 07/01/22 08:49 07/01/22 08:00 06/30/22 01:30 FiO2 30 07/01/22 08:00 Oxygen Flow Rate (L/min) 3 Oxygen Delivery Method Mechanical Ventilator Weight: 63.5 kg Body Mass Index (BMI) 22.9 Intake & Output: Intake and Output for Last 24 Hours 06/29/22 06/30/22 07/01/22 23:59 23:59 23:59 Intake Total 833.33 / 833.33 4387.92 / 4400.97 1228.79 / 1228.79 Output Total 500 / 500 200 / 200 Balance 833.33 / 833.33 3887.92 / 3900.97 1028.79 / 1028.79 Medical Nutrition Assessment Dietitian: Malnutrition Criteria Met Start: 06/30/22 10:32 Freq: Status: Active Protocol: Document 06/30/22 10:33 AG (Rec: 06/30/22 10:33 [id number]) Nutrition Malnutrition Evidence of Malnutrition Exists Yes Malnutrition (severe): Chronic Evidenced By Weight Loss (Severe),Physical Changes (Moderate) Clinical Problem Chronic Disease or Condition Related Malnutrition Etiology severe, chronic malnutrition related to predicted inadequate oral intake Signs/Symptoms as evidenced by wt loss of 34. 2#/21% x 9 months, moderate muscle wasting/fat loss in orbital, temporal, clavicle, and acromion areas per physical exam Status Active Problem Recommendation Dietitian Recommendations/Changes NPO while intubated; Via OGT- Vital AF 1.2 at goal rate of 55mL/hour w/ 100mL H2O flush every 4 hours to provide 1584 calories, 99 g protein, and 1670mL total fluid/day. Would start at 20mL/hour and increase by 15mL/hour every 8- 12 hours as tolerated until goal rate is achieved. Lab / Micro Data Result Diagrams: 07/01/22 06:48 12/28/22 06:48 Labs: Laboratory Results - last 24 hr 07/01/22 06:48: WBC 6.3, RBC 2.98 L, Hgb 8.1 L, Hct 26.0 L, MCV 87.2 D, MCH 27.2, MCHC 31.2 L D, RDW Std Deviation 52.4 H, RDW Coeff of Deonte 16.4 H, Plt Count 106 L, MPV 10.1, Immature Gran % (Auto) 0.500, Neut % (Auto) 62.1, Lymph % (Auto) 25.1, [place] % (Auto) 10.1 H, Eos % (Auto) 1.7, Baso % (Auto) 0.5, Absolute Neuts (auto) 3.9, Absolute Lymphs (auto) 1.59, Nucleated RBC % 0 07/01/22 06:48: Sodium 145, Potassium 2.8 L, Chloride 113 H, Carbon Dioxide 30.0, Anion Gap 2 L, BUN 16, Creatinine 0.65, Estim Creat Clear Calc 45.16, Est GFR (MDRD) Af Amer 116, Est GFR (MDRD) Non-Af 96, BUN/Creatinine Ratio 24.5 H, Glucose 86, Calcium 7.6 L Micro: Microbiology 06/30/22 02:25 Sputum, Tracheal Aspirate Gram Stain - Final 06/30/22 02:25 Sputum, Tracheal Aspirate Respiratory Culture - Preliminary Appears to be normal respiratory ailyn. Further studies to follow. 06/29/22 23:25 Urine Catheter - Fortune Urine Culture - Preliminary GNR lactose pipe insulator 06/30/22 02:35 Mucosa - Nasopharyngeal Respiratory Panel (PCR) - Final 06/29/22 23:30 Nasal Secretion SARS-CoV-2 & FLU Antigen (Rapid) - Final Radiography Diagnostic Testing: Radiology Impression Brain MRI 06/30/22 05:55 IMPRESSION: No new abnormal intracranial finding. Similar appearance of bilateral posterior cerebral encephalomalacia in the right subdural fluid. Electronically Signed: Jadon Chandler MD at 16:20 EST , Physical Exam Const Constitutional Narrative: Patient is sedated and on the ventilator HEENT head/scalp atraumatic Head and Scalp: normocephalic Eyes conjunctivae normal Neck no JVD Resp normal respiratory effort, no retractions, no use of accessory muscles and clear to auscultation bilaterally Cardio regular rate, regular rhythm, S1 normal heart sound, S2 normal heart sound, no murmurs and no rub GI normal to inspection, nondistended, normoactive bowel sounds and non-distended Extremity normal to inspection Neuro Neuro Narrative: Patient is sedated on the ventilator Psych Psych Narrative: Patient is sedated and on the ventilator Assessment & Plan Assessment/Plan (1) Altered mental status: PLAN: Plan 1. Acute on chronic hypoxic respiratory failure-exact etiology unclear at this point, pulmonary medicine is managing vent #2 acute encephalopathy-possibly secondary to postictal versus toxic, supportive care will be given #3 seizure disorder-etiology unclear at this point, patient is on antiseizure medications #4 coronary artery disease-patient appears stable at this time #5 chronic obstructive pulmonary disease-patient is stable at this time #6 anemia-etiology unclear, labs will be monitored #7 hypokalemia-potassium replacement will be ordered, labs will be monitored #8 cerebrovascular disease-patient has a history of strokes in the past and she also had a history of a hemorrhagic CVA requiring transfer to [facility] in January 2022, MRI yesterday did not show any recent strokes Charges/Coding Visit Charges Inpatient E&M: 81134 Subs Hosp L2
[2022-07-01] MEDS: Potassium Chloride 10mEq/100mL 10 MEQ/100 ML IV.SOLN. 100 MEQ IV BOLUS ×3 (09:53→12:00)
--- NOTE | 2022-07-01 18:09 | CASEMGMT ---
FINESSE LALA Discharge Planning Assessment: Face to Face with patient for initial transition planning/care coordination assessment. Pt on ventilator and sedated although opening her eyes off and on throughout the assessment. Pt's daugther Ameena at bedside and agreeable to participating in assessment. FINESSE LALA introduced self and role at [facility], Pt's daughter voiced understanding. Care providers, pharmacy, and demographics verified. PCP: Miriam (pt's daughter could not confirm as pt had recently changed PCP's and she is unsure of the new provider's name) Specialists: unknown Insurance: [facility] [employer] Prescription Benefit: Yes Living Will/HPOA: Yes, Yes, HPOA Ameena (requested these documents to be brought in) LNOK: Pt's children Living Arrangements: pt lives with her S.O. Nasim in a 2 story home with a first floor set-up and 2 steps to enter the home. Pt's S.O. assists pt with getting in and out of the shower with dressing if needed. Transportation: Pt's S.O. drives, pt does not drive DME: cane, NIV and O2 at 2l/min from [employer]. Pt's daughter states pt has a bipap but does not wear. Unclear if this is the NIV which [facility] states pt has. SNF: [facility] (for 2 days and family removed pt) HHC: Yes but unable to recall the provider. Pt's home has been sold to [employer] and they are required to vacate the property by 07/12/2022. Pt's daughter is assisting pt and S.O. with renting a home around the corner from the daughter's home. This will be a two story home with a 1st floor set-up also. Laundry in both home is in the basement and pt's S.O. completes. Pt's daughter also states pt gets confused with her medications at times and would like someone who can assist with management. Plan: TBD, HH vs SNF. Will continue to monitor pt's progress and assist with discharge needs as identified. Uriel Purvis RN CM
--- NOTE | 2022-07-01 20:39 | PN.HOSP_ITS ---
Hospitalist Note Neurology follow-up evaluation with recommendation to continue current AED regimen with recommended dilantin level in AM given currently she is stable on this regimen. Ideally, retirement she would transition from dilantin if able.
[2022-07-01] MEDS: Ceftriaxone 1 GM/50 ML BAG IV (20:53)
[2022-07-01] MEDS: Vital AF 1.2 Cal Liquid 1,000 ML 45 ML GT (20:54)
[2022-07-01] MEDS: Propofol 10MG/Ml 1,000 MG/100 ML Bottle 10.6 MG CONT INF (23:01)
[2022-07-02] VITALS (37 sets, daily range): BP systolic 105–162; BP diastolic 50–78; PULSE 19–143; RESP 14–29; TEMP 37.3–37.7; O2SAT 90–100
[2022-07-02] MEDS: Ipratropium/Albuterol Sulfate 3 ML AMPUL.NEB INHALATION ×4 (01:57→19:06)
[2022-07-02 04:20] LABS: Absolute Lymphocyte Count 1.48 X10^3/uL (0.83-4.51); Absolute Neutrophil Count 3.2 X10^3/uL (2.0-7.7); Basophil# 0.02 X10^3/uL; Basophil% 0.4 % (0-1); Eosinophil# 0.17 X10^3/uL; Eosinophils% 3.1 % (0-5); Hematocrit 24.5 % (37-47); Hemoglobin 7.8 g/dL (12.0-15.0); Lymphocyte # 1.48 X10^3/ul (0.83-4.51); Mean Corp Hgb Conc 31.8 g/dL (32-36); Mean Corpuscular Hgb 27.7 pg (27.0-32.0); Mean Corpuscular Volume 86.9 fL (81-99); Mean Platelet Vol. 10.8 fl (6.2-12.0); Monocyte# 0.57 X10^3/uL; Monocyte% 10.4 % (0-10); NRBC Flagged by Analyzer 0 % (0-5); Neutrophil # 3.22 X10^3/uL (2.7-7.7); Neutrophil % 58.7 % (47-70); Platelet Count 108 K/mm3 (150-450); RBC Distribution Width SD 53.6 fl (35.1-43.9); Red Blood Count 2.82 M/mm3 (4.2-5.4); White Blood Count 5.5 K/mm3 (4.4-11.0)
[2022-07-02 04:55] LABS: ALB/GLOB Ratio 0.6 RATIO (0.9-2.4); AST(SGOT) 31 U/L (15-37); Alanine Aminotransfer ALT/SGPT 29 U/L (13-56); Albumin, Serum 1.9 g/dL (3.2-5.0); Alkaline Phosphatase 86 U/L (45-117); Anion Gap 4 (5-15); BUN 13 mg/dL (7-18); BUN/Creat Ratio 21.5 RATIO (10-20); Calcium,Total 7.5 mg/dL (8.5-10.1); Chloride 114 mmol/L (98-107); EST Glomerular Filtration Rate 105 mL/min (>60); Est Glom Filt Rate - Afr Amer 127 mL/min (>60); Estimated Creatinine Clearance 45.16 ml/min; Glucose 99 mg/dL (74-106); Potassium 2.8 mmol/L (3.5-5.1); Protein, Total 4.9 g/dL (6.4-8.2); Sodium Level 145 mmol/L (136-145)
[2022-07-02 04:57] LABS: Phenytoin (Dilantin) Level 11.7 mL (10.0-20.0)
[2022-07-02] MEDS: 0.9% Normal Saline 1,000 ML 125 ML IV (04:57)
[2022-07-02] MEDS: 0.9% Saline Lock 10 ML Syringe IV ×3 (05:01→20:36)
[2022-07-02] MEDS: Phenytoin Na 100 MG/2 ML Vial IV ×3 (05:01→20:36)
--- NOTE | 2022-07-02 07:55 | PN.CC_ITS ---
Assessment & Plan Assessment/Plan (1) Acute and chronic respiratory failure with hypercapnia: PLAN: Plan RECOMMENDATIONS: 1. Proceed with a trial of extubation this morning. 2. Once extubated, wean supplemental oxygen to maintain saturations at or above 90%. 3. Recommend speech therapy evaluation prior to advancement of diet. 4. IV Lasix as ordered. 5. Potassium repletion as ordered. 6. Continue antimicrobials. 7. Continue antiepileptics and maintain seizure precautions. 8. Continue scheduled bronchodilators. 9. Encourage incentive spirometer use and mobilize patient as tolerated. IMPRESSIONS: 1. Acute on chronic combined respiratory failure Improved. The patient has known end-stage COPD and chronic hypoxemic r espiratory failure, along with baseline CO2 retention. She has questionable compliance with her outpatient noninvasive ventilator. I do suspect that her acute respiratory decompensation may have been triggered by a postictal state and/or polypharmacy effects. For now, the patient will be maintained on scheduled bronchodilators. The patient passed her spontaneous breathing trial this morning and will therefore be extubated. Once extubated, supplemental oxygen will be weaned to maintain saturations at or above 90%. Recommend speech therapy evaluation prior to advancing diet. 2. Encephalopathy Improved. Likely metabolic in the setting of CO2 retention and/or related to postictal state in the setting of new onset seizure activity. In addition, there is some question as to whether possible polypharmacy may have also been contributing, as the patient was positive for benzodiazepines and opiates on her toxicology screen. Plan to continue current antiepileptics along with seizure precautions and as needed Ativan. 3. Multifactorial shock Improved. The patient initially developed hypotension as a consequence of sedative medication use. Therefore, her hemodynamic instability may be the consequence of the propofol and fentanyl currently being utilized to keep her comfortable while intubated. Alternatively, there is some concern for an underlying urinary tract source of infection, making sepsis a possibility. The patient has been fluid resuscitated and remains hemodynamically stable. 4. E. coli UTI Continue antimicrobials as ordered to complete treatment course. 5. History of end-stage COPD/chronic hypoxemic respiratory failure/obstructive sleep apnea/frequent COPD exacerbations The patient has a known history of end-stage COPD with questionable outpatient m edical compliance. The patient has had compliance issues in the past related to her supplemental oxygen use and noninvasive ventilator utilization. She will be maintained on scheduled bronchodilators for now. Management as noted above. 6. History of hemorrhagic CVA/former tobacco dependency/history of cardiomyopathy/anxiety/depression Complicates care, management, recovery and prognosis. TIME: 35 minutes of critical care time, independent of procedures, was spent addressing the patient's acute on chronic combined respiratory failure, encephalopathy, multifactorial shock, review of all data and collaboration with the care team. Subjective Subjective The patient was seen and examined at the bedside this morning. Events from the last 24 hours have been reviewed. The patient currently has a low-grade fever but remains otherwise hemodynamically stable. She is currently doing well on her spontaneous breathing trial. No seizure activity has been noted by the nursing staff. The patient is currently documented to be overall net +10.8 L for the hospitalization. Hemoglobin is down this morning to 7.8 g/dL. The patient remains thrombocytopenic with a platelet count of 108,000. Potassium is low at 2.8 with a normal creatinine. Objective Data Objective Data The patient's most recent lab work, culture data and imaging studies have all been personally reviewed. Surface echocardiogram from June 2021 demonstrated normal LV size with an ejection fraction of 37%. MRI brain only showed a similar-appearing right subdural fluid collection and bilateral posterior cerebral encephalomalacia. Respiratory viral panel was negative. Preliminary urine culture was positive for E. coli. Vital Signs: Vital Signs Temp Pulse Resp BP Pulse Ox O2 Del Method O2 Flow Rate 99.8 F H 98 14 127/52 H 96 Mechanical Ventilator 3 07/02/22 07:00 07/02/22 07:15 07/02/22 07:15 07/02/22 07:00 07/02/22 07:00 07/02/22 07:00 06/30/22 01:30 FiO2 40 07/02/22 07:00 Oxygen Flow Rate (L/min) 3 Oxygen Delivery Method Mechanical Ventilator Weight: 148 lb 12.992 oz Body Mass Index (BMI) 22.9 Intake & Output: Intake and Output for Last 24 Hours 06/30/22 07/01/22 07/02/22 23:59 23:59 23:59 Intake Total 4387.92 / 4400.97 5342.84 / 5553.26 1882.36 / 1882.36 Output Total 500 / 500 850 / 850 250 / 250 Balance 3887.92 / 3900.97 4492.84 / 4703.26 1632.36 / 1632.36 Medical Nutrition Assessment Dietitian: Malnutrition Criteria Met Start: 06/30/22 10:32 Freq: Status: Active Protocol: Document 07/01/22 10:28 AG (Rec: 07/01/22 10:28 [id number]) Nutrition Malnutrition Evidence of Malnutrition Exists Yes Malnutrition (severe): Chronic Evidenced By Weight Loss (Severe),Physical Changes (Moderate) Clinical Problem Chronic Disease or Condition Related Malnutrition Etiology severe, chronic malnutrition related to predicted inadequate oral intake Signs/Symptoms as evidenced by wt loss of 23. 6#/14% x 9 months, moderate muscle wasting/fat loss in orbital, temporal, clavicle, and acromion areas per physical exam Status Active Problem Recommendation Dietitian Recommendations/Changes NPO while intubated; Via OGT- Vital AF 1.2 at goal rate of 55mL/hour w/ 100mL H2O flush every 4 hours to provide 1584 calories, 99 g protein, and 1670mL total fluid/day. Increase by 15mL/hour every 8- 12 hours as tolerated until goal rate is achieved. Lab / Micro Data Attestation: I reviewed the patient's lab results. Result Diagrams: 07/02/22 04:05 07/02/22 04:05 Labs: Laboratory Results - last 24 hr 07/02/22 04:05: WBC 5.5, RBC 2.82 L, Hgb 7.8 L, Hct 24.5 L, MCV 86.9, MCH 27.7, MCHC 31.8 L, RDW Std Deviation 53.6 H, RDW Coeff of Deonte 17.0 H, Plt Count 108 L, MPV 10.8, Immature Gran % (Auto) 0.400, Neut % (Auto) 58.7, Lymph % (Auto) 27.0, [place] % (Auto) 10.4 H, Eos % (Auto) 3.1, Baso % (Auto) 0.4, Absolute Neuts (auto) 3.2, Absolute Lymphs (auto) 1.48, Nucleated RBC % 0 07/02/22 04:05: Sodium 145, Potassium 2.8 L, Chloride 114 H, Carbon Dioxide 27.0, Anion Gap 4 L, BUN 13, Creatinine 0.60, Estim Creat Clear Calc 45.16, Est GFR (MDRD) Af Amer 127, Est GFR (MDRD) Non-Af 105, BUN/Creatinine Ratio 21.5 H, Glucose 99, Calcium 7.5 L, Total Bilirubin 0.20, AST 31, ALT 29, Alkaline Phosp hatase 86, Total Protein 4.9 L, Albumin 1.9 L, Globulin 3.0, Albumin/Globulin Ratio 0.6 L 07/02/22 04:05: Phenytoin 11.7 Micro: Microbiology 06/29/22 23:25 Urine Catheter - Fortune Urine Culture - Final Escherichia coli 06/29/22 23:15 Blood Culture (Wb) - Anticubital Right Blood Culture - Preliminary No growth in 48 hours. 06/29/22 22:48 Blood Culture (Wb) - Anticubital Right Blood Culture - Preliminary No growth in 48 hours. 06/30/22 02:25 Sputum, Tracheal Aspirate Gram Stain - Final 06/30/22 02:25 Sputum, Tracheal Aspirate Respiratory Culture - Preliminary Appears to be normal respiratory ailyn. Further studies to follow. 06/30/22 02:35 Mucosa - Nasopharyngeal Respiratory Panel (PCR) - Final 06/29/22 23:30 Nasal Secretion SARS-CoV-2 & FLU Antigen (Rapid) - Final Radiography Diagnostic Testing: Radiology Impression Brain MRI 06/30/22 05:55 IMPRESSION: No new abnormal intracranial finding. Similar appearance of bilateral posterior cerebral encephalomalacia in the right subdural fluid. Electronically Signed: Jadon Chandler MD at 16:20 EST , Physical Exam Const alert and no apparent distress General Appearance: intubated and patient mechanically ventilated HEENT normocephalic and head/scalp atraumatic Mouth: endotracheal tube in place and OG tube in place Eyes PERRL and EOMs intact bilaterally Neck supple General: trachea midline Chest Chest Narrative: Increased AP diameter Resp Auscultation: diminished lung sounds; Negative for rales, rhonchi or wheezes Cardio S1 normal heart sound and S2 normal heart sound Rate: tachycardic GI normal to inspection, nondistended, normoactive bowel sounds Extremity no clubbing, cyanosis or edema General Extremity: edema left upper extremity Skin no rashes or lesions noted Neuro Neuro Narrative: Alert and able to follow simple commands. Charges/Coding Procedures Hospitalists Procedures: [id number]
--- NOTE | 2022-07-02 08:00 | PCM.PN.HOSP ---
Subjective Subjective Patient was seen and examined today, she is lightly sedated and nods her head to commands for this examiner. Patient's white blood cell count was normal today, hemoglobin was 7.8, patient remains on the ventilator at this time. EEG was performed on the patient and did not show any evidence of seizure focus, it did show damage pattern from previous hemorrhagic stroke. Objective Data Objective Data Vital Signs: Vital Signs Temp Pulse Resp BP Pulse Ox O2 Del Method O2 Flow Rate 99.8 F H 19 L 19 H 127/52 H 96 Mechanical Ventilator 3 07/02/22 07:00 07/02/22 07:53 07/02/22 07:53 07/02/22 07:00 07/02/22 07:53 07/02/22 07:00 06/30/22 01:30 FiO2 40 07/02/22 07:00 Oxygen Flow Rate (L/min) 3 Oxygen Delivery Method Mechanical Ventilator Weight: 67.5 kg Body Mass Index (BMI) 22.9 Intake & Output: Intake and Output for Last 24 Hours 06/30/22 07/01/22 07/02/22 23:59 23:59 23:59 Intake Total 4387.92 / 4400.97 5342.84 / 5553.26 1882.36 / 1882.36 Output Total 500 / 500 850 / 850 250 / 250 Balance 3887.92 / 3900.97 4492.84 / 4703.26 1632.36 / 1632.36 Medical Nutrition Assessment Dietitian: Malnutrition Criteria Met Start: 06/30/22 10:32 Freq: Status: Active Protocol: Document 07/01/22 10:28 (Rec: 07/01/22 10:28 [id number]) Nutrition Malnutrition Evidence of Malnutrition Exists Yes Malnutrition (severe): Chronic Evidenced By Weight Loss (Severe),Physical Changes (Moderate) Clinical Problem Chronic Disease or Condition Related Malnutrition Etiology severe, chronic malnutrition related to predicted inadequate oral intake Signs/Symptoms as evidenced by wt loss of 23. 6#/14% x 9 months, moderate muscle wasting/fat loss in orbital, temporal, clavicle, and acromion areas per physical exam Status Active Problem Recommendation Dietitian Recommendations/Changes NPO while intubated; Via OGT- Vital AF 1.2 at goal rate of 55mL/hour w/ 100mL H2O flush every 4 hours to provide 1584 calories, 99 g protein, and 1670mL total fluid/day. Increase by 15mL/hour every 8- 12 hours as tolerated until goal rate is achieved. Lab / Micro Data Result Diagrams: 07/02/22 04:05 07/02/22 04:05 Labs: Laboratory Results - last 24 hr 07/02/22 04:05: WBC 5.5, RBC 2.82 L, Hgb 7.8 L, Hct 24.5 L, MCV 86.9, MCH 27.7, MCHC 31.8 L, RDW Std Deviation 53.6 H, RDW Coeff of Deonte 17.0 H, Plt Count 108 L, MPV 10.8, Immature Gran % (Auto) 0.400, Neut % (Auto) 58.7, Lymph % (Auto) 27.0, [place] % (Auto) 10.4 H, Eos % (Auto) 3.1, Baso % (Auto) 0.4, Absolute Neuts (auto) 3.2, Absolute Lymphs (auto) 1.48, Nucleated RBC % 0 07/02/22 04:05: Sodium 145, Potassium 2.8 L, Chloride 114 H, Carbon Dioxide 27.0, Anion Gap 4 L, BUN 13, Creatinine 0.60, Estim Creat Clear Calc 45.16, Est GFR (MDRD) Af Amer 127, Est GFR (MDRD) Non-Af 105, BUN/Creatinine Ratio 21.5 H, Glucose 99, Calcium 7.5 L, Total Bilirubin 0.20, AST 31, ALT 29, Alkaline Phosphatase 86, Total Protein 4.9 L, Albumin 1.9 L, Globulin 3.0, Albumin/Globulin Ratio 0.6 L 07/02/22 04:05: Phenytoin 11.7 Micro: Microbiology 06/30/22 02:25 Sputum, Tracheal Aspirate Gram Stain - Final 06/30/22 02:25 Sputum, Tracheal Aspirate Respiratory Culture - Final 06/29/22 23:25 Urine Catheter - Fortune Urine Culture - Final Escherichia coli 06/29/22 23:15 Blood Culture (Wb) - Anticubital Right Blood Culture - Preliminary No growth in 48 hours. 06/29/22 22:48 Blood Culture (Wb) - Anticubital Right Blood Culture - Preliminary No growth in 48 hours. 06/30/22 02:35 Mucosa - Nasopharyngeal Respiratory Panel (PCR) - Final 06/29/22 23:30 Nasal Secretion SARS-CoV-2 & FLU Antigen (Rapid) - Final Physical Exam Narrative Constitutional Narrative: Patient is lightly sedated and on the ventilator, she responds by nodding her head when asked to do so HEENT head/scalp atraumatic Head and Scalp: normocephalic Eyes conjunctivae normal Neck no JVD Resp normal respiratory effort, no retractions, no use of accessory muscles and clear to auscultation bilaterally Cardio regular rate, regular rhythm, S1 normal heart sound, S2 normal heart sound, no murmurs and no rub GI normal to inspection, nondistended, normoactive bowel sounds and non-distended Extremity normal to inspection Neuro Neuro Narrative: Patient is sedated on the ventilator Psych Psych Narrative: Patient is lightly sedated and on the ventilator Assessment & Plan Assessment/Plan (1) Altered mental status: PLAN: Plan 1. Acute on chronic hypoxic respiratory failure-exact etiology unclear at this point, pulmonary medicine is managing vent #2 acute encephalopathy-possibly secondary to postictal versus toxic, supportive care will be given, patient appears more alert today and is able to respond when asked to nod her head. #3 seizure disorder-etiology unclear at this point, patient is on antiseizure medications #4 coronary artery disease-patient appears stable at this time #5 chronic obstructive pulmonary disease-patient is stable at this time #6 anemia-etiology unclear, labs will be monitored, patient does not require a blood transfusion at this time, I will order iron studies on the patient #7 hypokalemia-potassium replacement will be ordered, labs will be monitored #8 cerebrovascular disease-patient has a history of strokes in the past and she also had a history of a hemorrhagic CVA requiring transfer to [facility] in January 2022, MRI yesterday did not show any recent strokes #9 severe chronic protein and caloric malnutrition-nutritional services is seeing patient Charges/Coding Visit Charges Inpatient E&M: 47270 Subs Hosp L2
[2022-07-02] MEDS: Furosemide 40 MG/4 ML Vial IV (08:38)
[2022-07-02] MEDS: Potassium Chloride Oral Soln 20 MEQ/15 ML UDC 40 MEQ GT (08:38)
[2022-07-02] MEDS: Potassium Chloride 20mEq/100mL 20 MEQ/100 ML IV.SOLN. 100 MEQ IV BOLUS ×2 (08:39→10:03)
[2022-07-02] MEDS: Enoxaparin 40 MG/0.4 ML Syringe SC (08:42)
[2022-07-02 08:43] LABS: Iron 15 ug/dL (50-170); Iron Binding Capacity,Total 207 ug/dL (250-450); PERCENT IRON SATURATION 7.2 % (15.0-55.0)
[2022-07-02] MEDS: Famotidine 200 MG/20 ML MDV 20 MG in 0.9% Normal Saline (Pres. free 8 ML 300 MG IV ×2 (10:04→20:36)
[2022-07-02 18:50] LABS: Bedside Glucose 92 mg/dL (74-106)
[2022-07-02] MEDS: Ceftriaxone 1 GM/50 ML BAG IV (20:35)
[2022-07-03] VITALS (62 sets, daily range): BP systolic 50–215; BP diastolic 28–105; PULSE 77–142; RESP 11–35; TEMP 37.1–38; O2SAT 59–100
[2022-07-03] MEDS: hydrOXYzine PAM 25 MG Capsule PO (00:28)
--- NOTE | 2022-07-03 01:19 | RAD_ITS ---
STUDY: X-RAY CHEST REASON FOR EXAM: Female, 66 years old. Hypoxia TECHNIQUE: Single AP portable view of the chest. COMPARISON: June 30, 2022 FINDINGS: Endotracheal tube, 4 cm above the claude. Feeding tube extends to the stomach in the upper abdomen. There are monitoring and support devices. There are stable interstitial and airspace opacities of the mid and lower lungs. There is no demonstrated pleural abnormality. Normal size heart. Normal mediastinum and jacinto. Normal visualized pulmonary arteries. Normal visualized aortic arch and descending thoracic aorta. Normal visualized thoracic spine. Normal visualized ribs, clavicles, and shoulders. There is no demonstrated abnormality of the visualized soft tissue structures of the upper abdomen. RAD/Chest 1 View (Portable) IMPRESSION: Stable tubes and catheters. Bilateral edema or pneumonia. Electronically Signed: Yunior Aldridge MD at 8:59 EST ,
--- NOTE | 2022-07-03 01:31 | PCM.HOSP.N ---
Hospitalist Note With nursing staff patient had called out with a question and was recently evaluated and following nurse leaving the room again patient called out asking for the nurse with on the monitor onset of tachycardia and upon immediate evaluation was noted to have her oximeter off and once it was replaced patient was noted to be significantly hypoxic in the 50s and became obtunded with immediate rapid response called. Patient was placed on BiPAP per respiratory therapy. Patient with significantly diminished breath sounds, concern for possible eye nystagmus and possible repeat seizure activity therefore Ativan administered and patient prepped for intubation. Patient with significant abdominal breathing noted. Intubation Note: Patient with evidence of respiratory and/or impending distress. Medications administered: Ativan with prior seizure activity and when ready for intubation Versed 2 mg. ETT size: 7.5. Patient intubated in standard fashion with visualization of the vocal cords and passage of the ETT. Positioning verified with auscultation. Post-intubation CXR and KUB ordered. We will continue antiepileptic medications. ABG obtained and patient with significantly altered gas with pH 7.0. We will repeat ABG in approximately 1 hour following intubation. We will continue sedated regimen. Procedures Hospitalists Procedures: [id number] Insert Emergency Airway
[2022-07-03 01:35] LABS: Allen Test Positive; Base Excess -1 mmol/L (-2 to +2); Bicarbonate 29.6 mmol/L (22-26); Blood Gas Specimen Type ART; FI02 100; O2 Delivery Device BiPAP; PO2 214 mmHG (75-100); SITE R Radial; SO2 99 % (95-99); Total Carbon Dioxide 33 mmol/L; pCO2 114.8 mmHg (35-45); pH 7.02 (7.35-7.45)
[2022-07-03] MEDS: LORazepam 2 MG/ML Syringe IV (01:35)
[2022-07-03] MEDS: Etomidate 20 MG/10 ML Vial IV (01:36)
[2022-07-03] MEDS: Midazolam 2 MG/2 ML Syringe IV (01:37)
[2022-07-03] MEDS: CHLORHEXIDINE GLUC 2% CLOTH 1 EACH TOWELETTE TOPICAL ×2 (02:01→22:38)
--- NOTE | 2022-07-03 02:52 | NURSING ---
0115- This RN saw on monitor at nurses station that patient's HR jumped up to 140s-150s. This RN went to patient's bedside to assess and the patient was obtunded. This RN applied a new pulse ox sticker because the other wasn't picking up at it read 59% on 4L/NC with a good wave form. The patient wasn't responding to painful stimulation and her eyes started to flutter. 0117- LINING SETTER was called. This RN and several other RNs along with RT are at bedside at this time. Patient was placed on bipap at 100%FiO2 and her saturations increased into the high 80s. An ABG was obtained by RT. 0125- Dr. Buitrago is at bedside and orders Ativan 2mg IVP due to the possible seizure activity and a STAT chest x-ray. Patient's O2 sats are now 90% on Bipap. 0135- The patient is still obtunded and having increased work of breathing. Dr. Buitrago after reviewing the ABG decided to intubate the patient. 0136- Etomidate 20mg IVP given 0137- Versed 2mg IVP given 0138- Patient is successfully intubated with a 7.5mm ETT, 23cm at the lip. Positive color change is noted and bilateral breath sounds auscultated. 0140- OG is placed and gurgles are heard with the air bolus. 0145- Chest x-ray is obtained. Dr. Buitrago studied x-ray and stated that supportive tubes are in the appropriate place and are good to use.
[2022-07-03 03:59] LABS: Absolute Lymphocyte Count 0.65 X10^3/uL (0.83-4.51); Absolute Neutrophil Count 8.3 X10^3/uL (2.0-7.7); Basophil# 0.02 X10^3/uL; Basophil% 0.2 % (0-1); Eosinophil# 0.14 X10^3/uL; Eosinophils% 1.4 % (0-5); Hematocrit 27.7 % (37-47); Hemoglobin 8.6 g/dL (12.0-15.0); Lymphocyte # 0.65 X10^3/ul (0.83-4.51); Lymphocyte % 6.7 % (19-41); Mean Corpuscular Hgb 27.7 pg (27.0-32.0); Mean Corpuscular Volume 89.1 fL (81-99); Monocyte# 0.65 X10^3/uL; Monocyte% 6.7 % (0-10); NRBC Flagged by Analyzer 0 % (0-5); Neutrophil # 8.26 X10^3/uL (2.7-7.7); Neutrophil % 84.5 % (47-70); Platelet Count 122 K/mm3 (150-450); RBC Distribution Width CV 17.2 % (11.6-14.6); RBC Distribution Width SD 55.3 fl (35.1-43.9); Red Blood Count 3.11 M/mm3 (4.2-5.4); White Blood Count 9.8 K/mm3 (4.4-11.0)
[2022-07-03 04:17] LABS: ALB/GLOB Ratio 0.6 RATIO (0.9-2.4); AST(SGOT) 34 U/L (15-37); Alanine Aminotransfer ALT/SGPT 29 U/L (13-56); Alkaline Phosphatase 85 U/L (45-117); Anion Gap 5 (5-15); BUN 11 mg/dL (7-18); BUN/Creat Ratio 19.4 RATIO (10-20); Calcium,Total 7.6 mg/dL (8.5-10.1); Chloride 112 mmol/L (98-107); Creatinine, Serum 0.57 mg/dL (0.55-1.02); EST Glomerular Filtration Rate 113 mL/min (>60); Est Glom Filt Rate - Afr Amer 137 mL/min (>60); Estimated Creatinine Clearance 45.16 ml/min; Globulin 3.1 g/dL (2.2-4.2); Glucose 103 mg/dL (74-106); Potassium 3.5 mmol/L (3.5-5.1); Protein, Total 5.1 g/dL (6.4-8.2); Sodium Level 145 mmol/L (136-145)
[2022-07-03 04:23] LABS: CPK Total, Creatine Kinase 656 U/L (26-192); Triglycerides 106 mg/dL
[2022-07-03 05:11] LABS: Base Excess 0 mmol/L (-2 to +2); Bicarbonate 25.4 mmol/L (22-26); Blood Gas Specimen Type ART; FI02 50; Mode AC; O2 Delivery Device Adult Vent; PEEP 5; PO2 176 mmHG (75-100); RR 14; SITE R Radial; SO2 100 % (95-99); Total Carbon Dioxide 27 mmol/L; Vt 450; pCO2 42.1 mmHg (35-45); pH 7.39 (7.35-7.45)
[2022-07-03 06:06] LABS: Bedside Glucose 135 mg/dL (74-106)
--- NOTE | 2022-07-03 06:23 | PCM.PN.INT ---
Assessment & Plan Assessment/Plan (1) Acute and chronic respiratory failure with hypercapnia: PLAN: Plan RECOMMENDATIONS: 1. Continue assist-control mode of mechanical ventilation. Wean FiO2/PEEP for saturations greater than 90%. 2. Okay to resume tube feeds today. 3. Obtain follow-up EEG and continue antiepileptics, along with seizure precautions. 4. Continue Levophed to maintain a mean arterial pressure at or above 65 mmHg. 5. Continue antimicrobials. 6. Continue scheduled bronchodilators. 7. Continue appropriate ICU prophylaxis. IMPRESSIONS: 1. Acute on chronic combined respiratory failure The patient has known end-stage COPD and chronic hypoxemic respiratory failure, along with baseline CO2 retention. She has questionable compliance with her outpatient noninvasive ventilator. I do suspect that her acute respiratory decompensation may have been triggered by a postictal state and/or polypharmacy effects. The patient actually improved from a respiratory perspective and was extubated on July 02. However, she apparently decompensated overnight after receiving a one-time dose of Vistaril. Potential etiologies for her decompensation overnight include medication induced respiratory depression versus seizures and subsequent postictal state. The patient was reintubated and will be maintained on assist control mode of mechanical ventilation. FiO2 will be weaned for saturations greater than 90%. Repeat cultures are pending. ABG has normalized. Follow-up EEG will be obtained. Tube feeds can be resumed from my perspective. 2. Encephalopathy Likely metabolic in the setting of CO2 retention and/or related to postictal state in the setting of new onset seizure activity. In addition, there is some question as to whether possible polypharmacy may have also been contributing, as the patient was positive for benzodiazepines and opiates on her toxicology screen. Plan to continue current antiepileptics along with seizure precautions and as needed Ativan. 3. Multifactorial shock The patient initially developed hypotension as a consequence of sedative medication use. Therefore, her hemodynamic instability may be the consequence of the propofol and fentanyl currently being utilized to keep her comfortable while intubated. Alternatively, sepsis related to gram-negative UTI is likely also contributing. The patient will be maintained on Levophed to maintain a mean arterial pressure at or above 65 mmHg. 4. E. coli UTI Continue antimicrobials as ordered to complete treatment course. 5. History of end-stage COPD/chronic hypoxemic respiratory failure/obstructive sleep apnea/frequent COPD exacerbations The patient has a known history of end-stage COPD with questionable outpatient medical compliance. The patient has had compliance issues in the past related to her supplemental oxygen use and noninvasive ventilator utilization. She will be maintained on scheduled bronchodilators for now. Management as noted above. 6. History of hemorrhagic CVA/former tobacco dependency/history of cardiomyopathy/anxiety/depression Complicates care, management, recovery and prognosis. Okay to resume tube feeds today from my perspective. TIME: 33 minutes of critical care time, independent of procedures, was spent addressing the patient's acute on chronic combined respiratory failure, encephalopathy, multifactorial shock, review of all data and collaboration with the care team. Subjective Subjective The patient was seen and examined at the bedside this morning. Events from the last 24 hours have been reviewed. Last evening, the patient was given a one-time dose of Vistaril, and a short time later, was found in an obtunded state. Therefore, she was emergently reintubated. There was some concern noted by the overnight hospitalist about potential seizure activity. Accordingly, IV Ativan was administered. The patient is currently documented to be overall net +8.1 L for the hospitalization. She is currently maintaining appropriate oxygen saturations on assist control mode of mechanical ventilation with an FiO2 requirement of 30% and PEEP of 5. She is currently requiring Levophed at 10 mcg/min to maintain hemodynamic stability. Objective Data Objective Data The patient's most recent lab work, culture data and imaging studies have all been personally reviewed. Surface echocardiogram from June 2021 demonstrated normal LV size with an ejection fraction of 37%. MRI brain only showed a similar-appearing right subdural fluid collection and bilateral posterior cerebral encephalomalacia. Respiratory viral panel was negative. Preliminary urine culture was positive for E. coli. Vital Signs: Vital Signs Temp Pulse Resp BP Pulse Ox O2 Del Method O2 Flow Rate 99 F 86 14 111/60 98 Mechanical Ventilator 4 07/03/22 06:00 07/03/22 06:00 07/03/22 06:00 07/03/22 06:00 07/03/22 06:00 07/03/22 06:00 07/03/22 01:15 FiO2 30 07/03/22 06:00 Oxygen Flow Rate (L/min) 4 Oxygen Delivery Method Mechanical Ventilator Weight: 141 lb 12.116 oz Body Mass Index (BMI) 22.9 Intake & Output: Intake and Output for Last 24 Hours 07/01/22 07/02/22 07/03/22 23:59 23:59 23:59 Intake Total 5342.84 / 5553.26 3001.36 / 3001.36 17.50 / 17.50 Output Total 850 / 850 3800 / 3800 250 / 250 Balance 4492.84 / 4703.26 -798.64 / -798.64 -232.50 / -232.50 Medical Nutrition Assessment Dietitian: Malnutrition Criteria Met Start: 06/30/22 10:32 Freq: Status: Active Protocol: Document 07/01/22 10:28 AG (Rec: 07/01/22 10:28 [id number]) Nutrition Malnutrition Evidence of Malnutrition Exists Yes Malnutrition (severe): Chronic Evidenced By Weight Loss (Severe),Physical Changes (Moderate) Clinical Problem Chronic Disease or Condition Related Malnutrition Etiology severe, chronic malnutrition related to predicted inadequate oral intake Signs/Symptoms as evidenced by wt loss of 23. 6#/14% x 9 months, moderate muscle wasting/fat loss in orbital, temporal, clavicle, and acromion areas per physical exam Status Active Problem Recommendation Dietitian Recommendations/Changes NPO while intubated; Via OGT- Vital AF 1.2 at goal rate of 55mL/hour w/ 100mL H2O flush every 4 hours to provide 1584 calories, 99 g protein, and 1670mL total fluid/day. Increase by 15mL/hour every 8- 12 hours as tolerated until goal rate is achieved. Lab / Micro Data Attestation: I reviewed the patient's lab results. Result Diagrams: 07/03/22 03:35 07/03/22 03:35 Labs: Laboratory Results - last 24 hr 07/02/22 04:05: Iron 15 L, TIBC 207 L, Iron Saturation 7.2 L 07/02/22 08:35: Blood Type A POSITIVE, Antibody Screen NEGATIVE 07/02/22 18:30: POC Glucose 92 07/03/22 01:18: POC Glucose 135 H 07/03/22 03:35: Total Creatine Kinase 656 H, Triglycerides 106 07/03/22 03:35: WBC 9.8, RBC 3.11 L, Hgb 8.6 L, Hct 27.7 L, MCV 89.1, MCH 27.7, MCHC 31.0 L, RDW Std Deviation 55.3 H, RDW Coeff of Deonte 17.2 H, Plt Count 122 L, MPV 11.0, Immature Gran % (Auto) 0.500, Neut % (Auto) 84.5 H, Lymph % (Auto) 6.7 L, [place] % (Auto) 6.7, Eos % (Auto) 1.4, Baso % (Auto) 0.2, Absolute Neuts (auto) 8.3 H, Absolute Lymphs (auto) 0.65 L, Nucleated RBC % 0 07/03/22 03:35: Sodium 145, Potassium 3.5, Chloride 112 H, Carbon Dioxide 28.0, Anion Gap 5, BUN 11, Creatinine 0.57, Estim Creat Clear Calc 45.16, Est GFR (MDRD) Af Amer 137, Est GFR (MDRD) Non-Af 113, BUN/Creatinine Ratio 19.4, Glucose 103, Calcium 7.6 L, Total Bilirubin 0.20, AST 34, ALT 29, Alkaline Phosphatase 85, Total Protein 5.1 L, Albumin 2.0 L, Globulin 3.1, Albumin/Globulin Ratio 0.6 L Micro: Microbiology 06/30/22 02:25 Sputum, Tracheal Aspirate Gram Stain - Final 06/30/22 02:25 Sputum, Tracheal Aspirate Respiratory Culture - Final 06/29/22 23:25 Urine Catheter - Fortune Urine Culture - Final Escherichia coli 06/29/22 23:15 Blood Culture (Wb) - Anticubital Right Blood Culture - Preliminary No growth in 48 hours. 06/29/22 22:48 Blood Culture (Wb) - Anticubital Right Blood Culture - Preliminary No growth in 48 hours. 06/30/22 02:35 Mucosa - Nasopharyngeal Respiratory Panel (PCR) - Final 06/29/22 23:30 Nasal Secretion SARS-CoV-2 & FLU Antigen (Rapid) - Final ABG Data ABG results: ABG 07/03/22 07/03/22 01:31 05:03 Specimen Type ART ART Sample Site R Radial R Radial pH 7.02 L* 7.39 Bicarbonate Actual 29.6 H 25.4 Total CO2 33 27 Base Excess -1 0 O2 Saturation 99 100 H O2 % 100 50 ABG pCO2 114.8 H* 42.1 ABG pO2 214 H 176 H Royal Test Positive N/A Respiration Rate 14 O2 Delivery Device BiPAP Adult Vent Vent Mode AC Tidal Volume 450 POC PEEP 5 Crit Call To/Read Back Yes Blood Gas Notified Whom drWhite Radiography Diagnostic Testing: Radiology Impression Brain MRI 06/30/22 05:55 IMPRESSION: No new abnormal intracranial finding. Similar appearance of bilateral posterior cerebral encephalomalacia in the right subdural fluid. Electronically Signed: Jadon Chandler MD at 16:20 EST Reading Location ID and State: [address] [place] [address] Tel , Service support , Physical Exam Const alert and no apparent distress General Appearance: intubated and patient mechanically ventilated HEENT normocephalic and head/scalp atraumatic Mouth: endotracheal tube in place and OG tube in place Eyes PERRL and EOMs intact bilaterally Neck supple General: trachea midline Chest Chest Narrative: Increased AP diameter Resp Auscultation: diminished lung sounds; Negative for rales, rhonchi or wheezes Cardio S1 normal heart sound and S2 normal heart sound Rate: tachycardic GI normal to inspection, nondistended, normoactive bowel sounds Extremity no clubbing, cyanosis or edema General Extremity: edema left upper extremity Skin no rashes or lesions noted Neuro Sensorium / Orientation: sedated on vent Charges/Coding Procedures Hospitalists Procedures: 90105 Critial Care 1st Hr
[2022-07-03] MEDS: 0.9% Saline Lock 10 ML Syringe IV ×2 (06:47→21:52)
[2022-07-03] MEDS: Phenytoin Na 100 MG/2 ML Vial IV ×3 (06:47→21:52)
[2022-07-03] MEDS: Ipratropium/Albuterol Sulfate 3 ML AMPUL.NEB INHALATION ×3 (07:00→19:18)
[2022-07-03] MEDS: Chlorhexidine 15 ML PO ×2 (09:16→21:49)
[2022-07-03] MEDS: Famotidine 200 MG/20 ML MDV 20 MG in 0.9% Normal Saline (Pres. free 8 ML 300 MG IV ×2 (09:16→21:51)
[2022-07-03] MEDS: Enoxaparin 40 MG/0.4 ML Syringe SC (09:17)
[2022-07-03 09:37] LABS: Magnesium 1.6 mg/dL (1.6-2.6); Phosphorus 2.7 mg/dL (2.5-4.9)
[2022-07-03] MEDS: Propofol 10MG/Ml 1,000 MG/100 ML Bottle 4.1 MG CONT INF (11:15)
[2022-07-03] MEDS: Vital AF 1.2 Cal Liquid 1,000 ML 35 ML GT (11:18)
--- NOTE | 2022-07-03 16:17 | PCM.PN.HOSP ---
Subjective Subjective Patient was seen and examined today, she was reintubated during the night and now is on the ventilator under light sedation. Patient opens her eyes to stimuli, she does not follow commands however. I talked briefly with critical care about her care. Objective Data Objective Data Vital Signs: Vital Signs Temp Pulse Resp BP Pulse Ox O2 Del Method O2 Flow Rate 100.2 F H 93 14 93/52 L 97 Mechanical Ventilator 4 07/03/22 13:00 07/03/22 13:15 07/03/22 13:00 07/03/22 13:15 07/03/22 13:00 07/03/22 13:00 07/03/22 01:15 FiO2 30 07/03/22 13:00 Oxygen Flow Rate (L/min) 4 Oxygen Delivery Method Mechanical Ventilator Weight: 64.3 kg Body Mass Index (BMI) 22.9 Intake & Output: Intake and Output for Last 24 Hours 07/01/22 07/02/22 07/03/22 23:59 23:59 23:59 Intake Total 5342.84 / 5553.26 3001.36 / 3001.36 528.21 / 528.21 Output Total 850 / 850 3800 / 3800 400 / 400 Balance 4492.84 / 4703.26 -798.64 / -798.64 128.21 / 128.21 Medical Nutrition Assessment Dietitian: Malnutrition Criteria Met Start: 06/30/22 10:32 Freq: Status: Active Protocol: Document 07/03/22 10:52 (Rec: 07/03/22 10:52 [id number]) Nutrition Malnutrition Evidence of Malnutrition Exists Yes Malnutrition (severe): Chronic Evidenced By Weight Loss (Severe),Physical Changes (Moderate) Clinical Problem Chronic Disease or Condition Related Malnutrition Etiology severe, chronic malnutrition related to predicted inadequate oral intake Signs/Symptoms as evidenced by wt loss of 23. 6#/14% x 9 months, moderate muscle wasting/fat loss in orbital, temporal, clavicle, and acromion areas per physical exam Status Active Problem Recommendation Dietitian Recommendations/Changes NPO while intubated; Via OGT- Vital AF 1.2 at goal rate of 55mL/hour w/ 100mL H2O flush every 4 hours to provide 1584 calories, 99 g protein, and 1670mL total fluid/day. Would start at 35mL/hour and increase by 10mL/hour every 8- 12 hours as tolerated until goal rate is achieved. Lab / Micro Data Result Diagrams: 07/03/22 03:35 07/03/22 03:35 Labs: Laboratory Results - last 24 hr 07/02/22 18:30: POC Glucose 92 07/03/22 01:18: POC Glucose 135 H 07/03/22 03:35: Total Creatine Kinase 656 H, Triglycerides 106 07/03/22 03:35: WBC 9.8, RBC 3.11 L, Hgb 8.6 L, Hct 27.7 L, MCV 89.1, MCH 27.7, MCHC 31.0 L, RDW Std Deviation 55.3 H, RDW Coeff of Deonte 17.2 H, Plt Count 122 L, MPV 11.0, Immature Gran % (Auto) 0.500, Neut % (Auto) 84.5 H, Lymph % (Auto) 6.7 L, [place] % (Auto) 6.7, Eos % (Auto) 1.4, Baso % (Auto) 0.2, Absolute Neuts (auto) 8.3 H, Absolute Lymphs (auto) 0.65 L, Nucleated RBC % 0 07/03/22 03:35: Sodium 145, Potassium 3.5, Chloride 112 H, Carbon Dioxide 28.0, Anion Gap 5, BUN 11, Creatinine 0.57, Estim Creat Clear Calc 45.16, Est GFR (MDRD) Af Amer 137, Est GFR (MDRD) Non-Af 113, BUN/Creatinine Ratio 19.4, Glucose 103, Calcium 7.6 L, Total Bilirubin 0.20, AST 34, ALT 29, Alkaline Phosphatase 85, Total Protein 5.1 L, Albumin 2.0 L, Globulin 3.1, Albumin/Globulin Ratio 0.6 L 07/03/22 09:15: Phosphorus 2.7, Magnesium 1.6 Micro: Microbiology 07/03/22 03:10 Sputum, Induced/[place] Gram Stain - Final 06/30/22 02:25 Sputum, Tracheal Aspirate Gram Stain - Final 06/30/22 02:25 Sputum, Tracheal Aspirate Respiratory Culture - Final 06/29/22 23:25 Urine Catheter - Fortune Urine Culture - Final Escherichia coli 06/29/22 23:15 Blood Culture (Wb) - Anticubital Right Blood Culture - Preliminary No growth in 48 hours. 06/29/22 22:48 Blood Culture (Wb) - Anticubital Right Blood Culture - Preliminary No growth in 48 hours. 06/30/22 02:35 Mucosa - Nasopharyngeal Respiratory Panel (PCR) - Final 06/29/22 23:30 Nasal Secretion SARS-CoV-2 & FLU Antigen (Rapid) - Final ABG Data ABG results: ABG 07/03/22 07/03/22 01:31 05:03 Specimen Type ART ART Sample Site R Radial R Radial pH 7.02 L* 7.39 Bicarbonate Actual 29.6 H 25.4 Total CO2 33 27 Base Excess -1 0 O2 Saturation 99 100 H O2 % 100 50 ABG pCO2 114.8 H* 42.1 ABG pO2 214 H 176 H Royal Test Positive N/A Respiration Rate 14 O2 Delivery Device BiPAP Adult Vent Vent Mode AC Tidal Volume 450 POC PEEP 5 Crit Call To/Read Back Yes Blood Gas Notified Whom drWhite Radiography Diagnostic Testing: Radiology Impression Chest X-Ray 07/03/22 01:19 IMPRESSION: Stable tubes and catheters. Bilateral edema or pneumonia. Electronically Signed: Yunior Aldridge MD at 8:59 EST , Physical Exam Narrative Constitutional Narrative: Patient is lightly sedated and on the ventilator, she opens her eyes to verbal stimuli but does not follow commands HEENT head/scalp atraumatic Head and Scalp: normocephalic Eyes conjunctivae normal Neck no JVD Resp normal respiratory effort, no retractions, no use of accessory muscles and clear to auscultation bilaterally Cardio regular rate, regular rhythm, S1 normal heart sound, S2 normal heart sound, no murmurs and no rub GI normal to inspection, nondistended, normoactive bowel sounds and non-distended Extremity normal to inspection Neuro Neuro Narrative: Patient is sedated on the ventilator Psych Psych Narrative: Patient is lightly sedated and on the ventilator Assessment & Plan Assessment/Plan (1) Altered mental status: PLAN: Plan 1. Acute on chronic hypoxic respiratory failure-exact etiology unclear at this point, pulmonary medicine is managing vent #2 acute encephalopathy-possibly secondary to postictal versus toxic, supportive care will be given, patient is now on the ventilator again and is under light sedation #3 seizure disorder-etiology unclear at this point, patient is on antiseizure medications #4 coronary artery disease-patient appears stable at this time #5 chronic obstructive pulmonary disease-patient is stable at this time #6 anemia-etiology unclear, labs will be monitored, patient does not require a blood transfusion at this time, I will order iron studies on the patient #7 hypokalemia-potassium replacement will be ordered, labs will be monitored #8 cerebrovascular disease-patient has a history of strokes in the past and she also had a history of a hemorrhagic CVA requiring transfer to [facility] in January 2022, MRI did not show any recent strokes #9 severe chronic protein and caloric malnutrition-nutritional services is seeing patient #10 multifactorial shock-patient is hypotensive today and is on IV pressors, exact etiology is unclear #11 acute cystitis secondary to E. coli-patient remains on antibiotics Charges/Coding Visit Charges Inpatient E&M: 72014 Subs Hosp L2
[2022-07-03] MEDS: Propofol 10MG/Ml 1,000 MG/100 ML Bottle 6.1 MG CONT INF (16:26)
[2022-07-03] MEDS: Ceftriaxone 1 GM/50 ML BAG IV (21:51)
[2022-07-04] VITALS (50 sets, daily range): BP systolic 95–153; BP diastolic 35–83; PULSE 66–116; RESP 14–26; TEMP 37.2–37.9; O2SAT 91–100
[2022-07-04] MEDS: Ipratropium/Albuterol Sulfate 3 ML AMPUL.NEB INHALATION ×4 (00:24→19:24)
[2022-07-04] MEDS: Propofol 10MG/Ml 1,000 MG/100 ML Bottle 4.1 MG CONT INF (02:53)
[2022-07-04 03:54] LABS: Absolute Lymphocyte Count 2.22 X10^3/uL (0.83-4.51); Absolute Neutrophil Count 6.6 X10^3/uL (2.0-7.7); Basophil# 0.05 X10^3/uL; Basophil% 0.5 % (0-1); Eosinophil# 0.68 X10^3/uL; Eosinophils% 6.1 % (0-5); Hematocrit 30.5 % (37-47); Hemoglobin 9.6 g/dL (12.0-15.0); Lymphocyte # 2.22 X10^3/ul (0.83-4.51); Lymphocyte % 20.1 % (19-41); Mean Corp Hgb Conc 31.5 g/dL (32-36); Mean Corpuscular Hgb 27.7 pg (27.0-32.0); Mean Corpuscular Volume 87.9 fL (81-99); Mean Platelet Vol. 10.5 fl (6.2-12.0); Monocyte# 1.52 X10^3/uL; Monocyte% 13.7 % (0-10); NRBC Flagged by Analyzer 0 % (0-5); Neutrophil # 6.55 X10^3/uL (2.7-7.7); Neutrophil % 59.2 % (47-70); POSITIVE DIFFERENTIAL YES; Platelet Count 202 K/mm3 (150-450); RBC Distribution Width CV 17.2 % (11.6-14.6); Red Blood Count 3.47 M/mm3 (4.2-5.4); White Blood Count 11.1 K/mm3 (4.4-11.0)
[2022-07-04 03:55] LABS: Differential Indicated SCAN CRITERIA MET
[2022-07-04 04:13] LABS: ALB/GLOB Ratio 0.6 RATIO (0.9-2.4); AST(SGOT) 15 U/L (15-37); Alanine Aminotransfer ALT/SGPT 24 U/L (13-56); Albumin, Serum 2.1 g/dL (3.2-5.0); Alkaline Phosphatase 87 U/L (45-117); Anion Gap 5 (5-15); BUN 11 mg/dL (7-18); BUN/Creat Ratio 17.1 RATIO (10-20); Calcium,Total 7.9 mg/dL (8.5-10.1); Chloride 111 mmol/L (98-107); Creatinine, Serum 0.64 mg/dL (0.55-1.02); EST Glomerular Filtration Rate 97 mL/min (>60); Est Glom Filt Rate - Afr Amer 118 mL/min (>60); Estimated Creatinine Clearance 45.16 ml/min; Globulin 3.4 g/dL (2.2-4.2); Glucose 151 mg/dL (74-106); Magnesium 1.7 mg/dL (1.6-2.6); Protein, Total 5.5 g/dL (6.4-8.2); Sodium Level 144 mmol/L (136-145)
[2022-07-04 04:27] LABS: Differential Comment SCANNED
[2022-07-04] MEDS: 0.9% Saline Lock 10 ML Syringe IV ×2 (05:23→22:50)
[2022-07-04] MEDS: Phenytoin Na 100 MG/2 ML Vial IV ×3 (05:23→21:29)
[2022-07-04] MEDS: Acetaminophen 650 MG/20 ML UDC GT (06:13)
[2022-07-04] MEDS: TITRATION PARAMETER CHANGE 1 EACH IV (06:13)
[2022-07-04] MEDS: Potassium Chloride Oral Soln 20 MEQ/15 ML UDC 40 MEQ PO ×2 (06:13→16:53)
--- NOTE | 2022-07-04 07:00 | PN.CC_ITS ---
Assessment & Plan Assessment/Plan (1) Acute and chronic respiratory failure with hypercapnia: PLAN: Plan RECOMMENDATIONS: 1. Continue assist-control mode of mechanical ventilation. Wean FiO2/PEEP for saturations greater than 90%. 2. Okay to advance tube feeds today. 3. Continue antiepileptics, along with seizure precautions. 4. Continue Levophed to maintain a mean arterial pressure at or above 65 mmHg. Initiate stress dose steroids 5. Electrolyte repletion as indicated 6. Continue scheduled bronchodilators and antimicrobials. 7. Continue appropriate ICU prophylaxis. 8. Likely attempt to diurese if able to get off of pressors IMPRESSIONS: 1. Acute on chronic combined respiratory failure The patient has known end-stage COPD and chronic hypoxemic respiratory failure, along with baseline CO2 retention. She has questionable compliance with her outpatient noninvasive ventilator. I do suspect that her acute respiratory decompensation may have been triggered by a postictal state and/or polypharmacy effects. The patient actually improved from a respiratory perspective and was extubated on July 02. However, she apparently decompensated overnight after receiving a one-time dose of Vistaril. Potential etiologies for her decompensation overnight include medication induced respiratory depression versus seizures and subsequent postictal state. The patient was reintubated on July 03. FiO2 will be weaned for saturations greater than 90%. Repeat cultures are pending. ABG has normalized. Follow-up EEG showed no significant seizure activity. Patient will likely require an element of diuresis prior to being able to tolerate an SAT/SBT 2. Encephalopathy Likely metabolic in the setting of CO2 retention and/or related to postictal state in the setting of new onset seizure activity. In addition, there is some question as to whether possible polypharmacy may have also been contributing, as the patient was positive for benzodiazepines and opiates on her toxicology screen. Plan to continue current antiepileptics along with seizure precautions and as needed Ativan. 3. Multifactorial shock The patient initially developed hypotension as a consequence of sedative medication use. Therefore, her hemodynamic instability may be the consequence of the propofol and fentanyl currently being utilized to keep her comfortable while intubated. Alternatively, sepsis related to gram-negative UTI is likely also contributing. The patient will be maintained on Levophed to maintain a mean arterial pressure at or above 65 mmHg. Patient has had issues with relative adrenal insufficiency in the past. Will initiate stress dose steroids. 4. E. coli UTI Continue antimicrobials as ordered to complete treatment course. 5. History of end-stage COPD/chronic hypoxemic respiratory failure/obstructive sleep apnea/frequent COPD exacerbations The patient has a known history of end-stage COPD with questionable outpatient medical compliance. The patient has had compliance issues in the past related to her supplemental oxygen use and noninvasive ventilator utilization. She will be maintained on scheduled bronchodilators for now. Management as noted above. 6. History of hemorrhagic CVA/former tobacco dependency/history of cardiomyopathy/anxiety/depression Complicates care, management, recovery and prognosis. Okay to advance tube feeds today from my perspective. Replete potassium as indicated. See orders. TIME: 34 minutes of critical care time, independent of procedures, was spent a ddressing the patient's acute on chronic combined respiratory failure, encephalopathy, multifactorial shock, review of all data and collaboration with the care team. Subjective Subjective Patient did okay overnight. Patient remains on levo at substantial doses. Patient is opening her eyes spontaneously intermittently, but not following commands. Patient did have a SAT this morning, but had tachycardia and desaturation. Patient is significantly positive over the course of her hospitalization. Objective Data Objective Data EEG was suggestive of a structural abnormality, but no seizure activity was noted. Vital Signs: Vital Signs Temp Pulse Resp BP Pulse Ox O2 Del Method O2 Flow Rate 37.9 C H 78 14 108/42 L 99 Mechanical Ventilator 4 07/04/22 05:00 07/04/22 06:00 07/04/22 06:00 07/04/22 06:00 07/04/22 06:00 07/04/22 06:00 07/03/22 01:15 FiO2 30 07/04/22 06:00 Oxygen Flow Rate (L/min) 4 Oxygen Delivery Method Mechanical Ventilator Weight: 65.8 kg Body Mass Index (BMI) 22.9 Intake & Output: Intake and Output for Last 24 Hours 07/02/22 07/03/22 07/04/22 23:59 23:59 23:59 Intake Total 3001.36 / 3001.36 1835.79 / 2055.67 1053.03 / 1053.03 Output Total 3800 / 3800 650 / 950 550 / 550 Balance -798.64 / -798.64 1185.79 / 1105.67 503.03 / 503.03 Medical Nutrition Assessment Dietitian: Malnutrition Criteria Met Start: 06/30/22 10:32 Freq: Status: Active Protocol: Document 07/03/22 10:52 (Rec: 07/03/22 10:52 [id number]) Nutrition Malnutrition Evidence of Malnutrition Exists Yes Malnutrition (severe): Chronic Evidenced By Weight Loss (Severe),Physical Changes (Moderate) Clinical Problem Chronic Disease or Condition Related Malnutrition Etiology severe, chronic malnutrition related to predicted inadequate oral intake Signs/Symptoms as evidenced by wt loss of 23. 6#/14% x 9 months, moderate muscle wasting/fat loss in orbital, temporal, clavicle, and acromion areas per physical exam Status Active Problem Recommendation Dietitian Recommendations/Changes NPO while intubated; Via OGT- Vital AF 1.2 at goal rate of 55mL/hour w/ 100mL H2O flush every 4 hours to provide 1584 calories, 99 g protein, and 1670mL total fluid/day. Would start at 35mL/hour and increase by 10mL/hour every 8- 12 hours as tolerated until goal rate is achieved. Lab / Micro Data Attestation: I reviewed the patient's lab results. Result Diagrams: 07/04/22 03:40 07/04/22 03:40 Labs: Laboratory Results - last 24 hr 07/03/22 09:15: Phosphorus 2.7, Magnesium 1.6 07/04/22 03:40: WBC 11.1 H, RBC 3.47 L, Hgb 9.6 L, Hct 30.5 L, MCV 87.9, MCH 27.7, MCHC 31.5 L, RDW Std Deviation 54.0 H, RDW Coeff of Deonte 17.2 H, Plt Count 202, MPV 10.5, Immature Gran % (Auto) 0.400, Neut % (Auto) 59.2, Lymph % (Auto) 20.1, [place] % (Auto) 13.7 H, Eos % (Auto) 6.1 H, Baso % (Auto) 0.5, Absolute Neuts (auto) 6.6, Absolute Lymphs (auto) 2.22, Nucleated RBC % 0, Differential Comment SCANNED, Diff Path Review November07/04/22 03:40: Sodium 144, Potassium 3.0 L, Chloride 111 H, Carbon Dioxide 28.0, Anion Gap 5, BUN 11, Creatinine 0.64, Estim Creat Clear Calc 45.16, Est GFR (MDRD) Af Amer 118, Est GFR (MDRD) Non-Af 97, BUN/Creatinine Ratio 17.1, Glucose 151 H, Calcium 7.9 L, Phosphorus 3.0, Magnesium 1.7, Total Bilirubin 0.20, AST 15, ALT 24, Alkaline Phosphatase 87, Total Protein 5.5 L, Albumin 2.1 L, Globulin 3.4, Albumin/Globulin Ratio 0.6 L Micro: Microbiology 07/03/22 03:10 Sputum, Induced/Lukens Gram Stain - Final 06/30/22 02:25 Sputum, Tracheal Aspirate Gram Stain - Final 06/30/22 02:25 Sputum, Tracheal Aspirate Respiratory Culture - Final 06/29/22 23:25 Urine Catheter - Fortune Urine Culture - Final Escherichia coli 06/29/22 23:15 Blood Culture (Wb) - Anticubital Right Blood Culture - Preliminary No growth in 48 hours. 06/29/22 22:48 Blood Culture (Wb) - Anticubital Right Blood Culture - Preliminary No growth in 48 hours. 06/30/22 02:35 Mucosa - Nasopharyngeal Respiratory Panel (PCR) - Final 06/29/22 23:30 Nasal Secretion SARS-CoV-2 & FLU Antigen (Rapid) - Final Radiography Diagnostic Testing: Radiology Impression Chest X-Ray 07/03/22 01:19 IMPRESSION: Stable tubes and catheters. Bilateral edema or pneumonia. Electronically Signed: Yunior Aldridge MD at 8:59 EST Reading Location ID and State: [address] [place] [address] , Service support , Physical Exam Const alert and no apparent distress General Appearance: intubated and patient mechanically ventilated HEENT normocephalic and head/scalp atraumatic Eyes PERRL and EOMs intact bilaterally Neck supple General: trachea midline Chest Chest Narrative: Increased AP diameter Resp Auscultation: rales and diminished lung sounds; Negative for rhonchi or wheezes Cardio regular rate, regular rhythm, S1 normal heart sound, S2 normal heart sound, no murmurs, no rub and no gallops GI normal to inspection, nondistended, normoactive bowel sounds Extremity no clubbing, cyanosis or edema General Extremity: edema left upper extremity Skin no rashes or lesions noted Neuro Neuro Narrative: Alert and able to follow simple commands. Sensorium / Orientation: sedated on vent Psych Mood & Affect: flat affect Charges/Coding Procedures Hospitalists Procedures: 09401 Critial Care 1st Hr
[2022-07-04] MEDS: Vital AF 1.2 Cal Liquid 1,000 ML 55 ML GT (08:15)
[2022-07-04] MEDS: Hydrocortisone Sod Succinate 100 MG/2 ML Vial IV ×3 (08:35→21:29)
[2022-07-04] MEDS: Famotidine 200 MG/20 ML MDV 20 MG in 0.9% Normal Saline (Pres. free 8 ML 300 MG IV ×2 (09:41→21:28)
[2022-07-04] MEDS: Enoxaparin 40 MG/0.4 ML Syringe SC (09:46)
[2022-07-04] MEDS: Chlorhexidine 15 ML PO ×2 (09:46→21:18)
[2022-07-04] MEDS: Polyethylene Glycol 3350 17 GM PACKET GT ×2 (10:59→21:31)
[2022-07-04] MEDS: Senna/Docusate Sodium 1 Tablet 2 TABLET GT ×2 (10:59→21:31)
--- NOTE | 2022-07-04 13:07 | PCM.PN.HOSP ---
Subjective Subjective Patient was seen and examined today, she remains sedated and on the ventilator at this time. Patient is still on pressors to maintain her blood pressure with a MAP of 65 or more. I briefly talked with critical care about her care. Objective Data Objective Data Vital Signs: Vital Signs Temp Pulse Resp BP Pulse Ox O2 Del Method O2 Flow Rate 99.8 F H 80 14 117/54 L 96 Mechanical Ventilator 4 07/04/22 08:00 07/04/22 11:00 07/04/22 11:00 07/04/22 11:00 07/04/22 11:00 07/04/22 11:00 07/03/22 01:15 FiO2 30 07/04/22 11:00 Oxygen Flow Rate (L/min) 4 Oxygen Delivery Method Mechanical Ventilator Weight: 65.8 kg Body Mass Index (BMI) 22.9 Intake & Output: Intake and Output for Last 24 Hours 07/02/22 07/03/22 07/04/22 23:59 23:59 23:59 Intake Total 3001.36 / 3001.36 1835.79 / 2055.67 1941.52 / 1941.52 Output Total 3800 / 3800 650 / 950 800 / 800 Balance -798.64 / -798.64 1185.79 / 1105.67 1141.52 / 1141.52 Medical Nutrition Assessment Dietitian: Malnutrition Criteria Met Start: 06/30/22 10:32 Freq: Status: Active Protocol: Document 07/04/22 10:22 (Rec: 07/04/22 10:56 [id number]) Nutrition Malnutrition Evidence of Malnutrition Exists Yes Malnutrition (severe): Chronic Evidenced By Weight Loss (Severe),Physical Changes (Moderate) Clinical Problem Chronic Disease or Condition Related Malnutrition Etiology severe, chronic malnutrition related to predicted inadequate oral intake Signs/Symptoms as evidenced by wt loss of 23. 6#/14% x 9 months, moderate muscle wasting/fat loss in orbital, temporal, clavicle, and acromion areas per physical exam Status Active Problem Recommendation Dietitian Recommendations/Changes NPO while intubated; Via OGT- Vital AF 1.2 at goal rate of 55mL/hour w/ 100mL H2O flush every 4 hours to provide 1584 calories, 99 g protein, and 1670mL total fluid/day. Lab / Micro Data Result Diagrams: 07/04/22 03:40 07/04/22 03:40 Labs: Laboratory Results - last 24 hr 07/04/22 03:40: WBC 11.1 H, RBC 3.47 L, Hgb 9.6 L, Hct 30.5 L, MCV 87.9, MCH 27.7, MCHC 31.5 L, RDW Std Deviation 54.0 H, RDW Coeff of Deonte 17.2 H, Plt Count 202, MPV 10.5, Immature Gran % (Auto) 0.400, Neut % (Auto) 59.2, Lymph % (Auto) 20.1, [place] % (Auto) 13.7 H, Eos % (Auto) 6.1 H, Baso % (Auto) 0.5, Absolute Neuts (auto) 6.6, Absolute Lymphs (auto) 2.22, Nucleated RBC % 0, Differential Comment SCANNED, Diff Path Review November07/04/22 03:40: Sodium 144, Potassium 3.0 L, Chloride 111 H, Carbon Dioxide 28.0, Anion Gap 5, BUN 11, Creatinine 0.64, Estim Creat Clear Calc 45.16, Est GFR (MDRD) Af Amer 118, Est GFR (MDRD) Non-Af 97, BUN/Creatinine Ratio 17.1, Glucose 151 H, Calcium 7.9 L, Phosphorus 3.0, Magnesium 1.7, Total Bilirubin 0.20, AST 15, ALT 24, Alkaline Phosphatase 87, Total Protein 5.5 L, Albumin 2.1 L, Globulin 3.4, Albumin/Globulin Ratio 0.6 L Micro: Microbiology 07/03/22 03:10 Sputum, Induced/Lukens Gram Stain - Final 07/03/22 03:10 Sputum, Induced/Lukens Respiratory Culture - Preliminary Culture exhibits no growth. 06/30/22 02:25 Sputum, Tracheal Aspirate Gram Stain - Final 06/30/22 02:25 Sputum, Tracheal Aspirate Respiratory Culture - Final 06/29/22 23:25 Urine Catheter - Fortune Urine Culture - Final Escherichia coli 06/29/22 23:15 Blood Culture (Wb) - Anticubital Right Blood Culture - Preliminary No growth in 48 hours. 06/29/22 22:48 Blood Culture (Wb) - Anticubital Right Blood Culture - Preliminary No growth in 48 hours. 06/30/22 02:35 Mucosa - Nasopharyngeal Respiratory Panel (PCR) - Final 06/29/22 23:30 Nasal Secretion SARS-CoV-2 & FLU Antigen (Rapid) - Final Physical Exam Narrative Constitutional Narrative: Patient is lightly sedated and on the ventilator, she opens her eyes to verbal stimuli but does not follow commands HEENT head/scalp atraumatic Head and Scalp: normocephalic Eyes conjunctivae normal Neck no JVD Resp normal respiratory effort, no retractions, no use of accessory muscles and clear to auscultation bilaterally Cardio regular rate, regular rhythm, S1 normal heart sound, S2 normal heart sound, no murmurs and no rub GI normal to inspection, nondistended, normoactive bowel sounds and non-distended Extremity normal to inspection Neuro Neuro Narrative: Patient is sedated on the ventilator Psych Psych Narrative: Patient is lightly sedated and on the ventilator Assessment & Plan Assessment/Plan (1) Altered mental status: PLAN: Plan 1. Acute on chronic hypoxic respiratory failure-exact etiology unclear at this point, pulmonary medicine is managing vent #2 acute encephalopathy-possibly secondary to postictal versus toxic, supportive care will be given, patient is now on the ventilator again and is under light sedation #3 seizure disorder-etiology unclear at this point, patient is on antiseizure medications #4 coronary artery disease-patient appears stable at this time #5 chronic obstructive pulmonary disease-patient is stable at this time #6 anemia-etiology unclear, labs will be monitored, patient does not require a blood transfusion at this time, I will order iron studies on the patient #7 hypokalemia-potassium replacement will be ordered, labs will be monitored #8 cerebrovascular disease-patient has a history of strokes in the past and she also had a history of a hemorrhagic CVA requiring transfer to [facility] in January 2022, MRI did not show any recent strokes #9 severe chronic protein and caloric malnutrition-nutritional services is seeing patient, this is a result of weight loss of 23.6 pounds over 9 months, moderate muscle fat loss and orbital, temporal, clavicular area, and acromion area per physical exam-patient is receiving tube feedings at the direction of nutritional services at this time #10 multifactorial shock-patient is hypotensive today and is on IV pressors, exact etiology is unclear #11 acute cystitis secondary to E. coli-patient remains on antibiotics Charges/Coding Visit Charges Inpatient E&M: 55078 Subs Hosp L2
[2022-07-04] MEDS: Propofol 10MG/Ml 1,000 MG/100 ML Bottle 5.9 MG CONT INF (13:54)
[2022-07-04] MEDS: Ceftriaxone 1 GM/50 ML BAG IV (21:28)
[2022-07-04] MEDS: Propofol 10MG/Ml 1,000 MG/100 ML Bottle 11.8 MG CONT INF (22:50)
[2022-07-05] VITALS (64 sets, daily range): BP systolic 97–137; BP diastolic 39–63; PULSE 39–127; RESP 9–20; TEMP 36.9–37.7; O2SAT 93–100
[2022-07-05] MEDS: Vital AF 1.2 Cal Liquid 1,000 ML 55 ML GT ×2 (02:26→21:54)
[2022-07-05] MEDS: Albuterol 2.5 MG/3 ML VIAL.NEB. INHALATION (03:16)
[2022-07-05] MEDS: CHLORHEXIDINE GLUC 2% CLOTH 1 EACH TOWELETTE TOPICAL ×2 (03:32→05:55)
[2022-07-05 03:55] LABS: Absolute Lymphocyte Count 1.14 X10^3/uL (0.83-4.51); Absolute Neutrophil Count 8.8 X10^3/uL (2.0-7.7); Basophil# 0.02 X10^3/uL; Basophil% 0.2 % (0-1); Hematocrit 29.8 % (37-47); Hemoglobin 9.3 g/dL (12.0-15.0); Lymphocyte # 1.14 X10^3/ul (0.83-4.51); Lymphocyte % 10.5 % (19-41); Mean Corp Hgb Conc 31.2 g/dL (32-36); Mean Corpuscular Hgb 27.4 pg (27.0-32.0); Mean Corpuscular Volume 87.6 fL (81-99); Mean Platelet Vol. 10.6 fl (6.2-12.0); Monocyte# 0.81 X10^3/uL; Monocyte% 7.5 % (0-10); NRBC Flagged by Analyzer 0 % (0-5); Neutrophil # 8.79 X10^3/uL (2.7-7.7); Neutrophil % 81.2 % (47-70); Platelet Count 197 K/mm3 (150-450); RBC Distribution Width CV 17.4 % (11.6-14.6); RBC Distribution Width SD 54.6 fl (35.1-43.9); White Blood Count 10.8 K/mm3 (4.4-11.0)
[2022-07-05 04:12] LABS: Anion Gap 5 (5-15); BUN 13 mg/dL (7-18); BUN/Creat Ratio 23.6 RATIO (10-20); Chloride 113 mmol/L (98-107); Creatinine, Serum 0.55 mg/dL (0.55-1.02); EST Glomerular Filtration Rate 117 mL/min (>60); Est Glom Filt Rate - Afr Amer 141 mL/min (>60); Estimated Creatinine Clearance 45.16 ml/min; Glucose 181 mg/dL (74-106); Magnesium 2.7 mg/dL (1.6-2.6); Phosphorus 2.7 mg/dL (2.5-4.9); Potassium 3.7 mmol/L (3.5-5.1); Sodium Level 146 mmol/L (136-145)
--- NOTE | 2022-07-05 04:45 | NURSING ---
Sedation decreased/turned off for awakening trial at 0400. Pt RASS of +3, so sedation was resumed at previous rates at 0445.
[2022-07-05] MEDS: Propofol 10MG/Ml 1,000 MG/100 ML Bottle 11.8 MG CONT INF ×2 (05:50→19:51)
[2022-07-05] MEDS: Hydrocortisone Sod Succinate 100 MG/2 ML Vial IV ×3 (05:55→21:07)
[2022-07-05] MEDS: Phenytoin Na 100 MG/2 ML Vial IV ×3 (05:57→21:07)
[2022-07-05] MEDS: 0.9% Saline Lock 10 ML Syringe IV (05:58)
[2022-07-05] MEDS: Ipratropium/Albuterol Sulfate 3 ML AMPUL.NEB INHALATION ×3 (06:50→18:35)
--- NOTE | 2022-07-05 06:56 | PN.CC_ITS ---
Assessment & Plan Assessment/Plan (1) Acute and chronic respiratory failure with hypercapnia: PLAN: Plan RECOMMENDATIONS: 1. Continue assist-control mode of mechanical ventilation. Wean FiO2/PEEP for saturations greater than 90%. 2. Continue tube feeds 3. Continue antiepileptics, along with seizure precautions. 4. Continue Levophed to maintain a mean arterial pressure at or above 65 mmHg. Continue stress dose steroids 5. Electrolyte repletion as indicated 6. Continue scheduled bronchodilators and antimicrobials. 7. Continue appropriate ICU prophylaxis. 8. Likely attempt to diurese if able to get off of pressors IMPRESSIONS: 1. Acute on chronic combined respiratory failure The patient has known end-stage COPD and chronic hypoxemic respiratory failure, along with baseline CO2 retention. She has questionable compliance with her outpatient noninvasive ventilator. I do suspect that her acute respi ratory decompensation may have been triggered by a postictal state and/or polypharmacy effects. The patient actually improved from a respiratory perspective and was extubated on July 02. However, she apparently decompensated overnight after receiving a one-time dose of Vistaril. Potential etiologies for her decompensation overnight include medication induced respiratory depression versus seizures and subsequent postictal state. The patient was reintubated on July 03. FiO2 will be weaned for saturations greater than 90%. Unfortunately, not able to diurese given high pressor requir ements. This does appear to be improving with stress dose steroids. 2. Encephalopathy Likely metabolic in the setting of CO2 retention and/or related to postictal state in the setting of new onset seizure activity. In addition, there is some question as to whether possible polypharmacy may have also been contributing, as the patient was positive for benzodiazepines and opiates on her toxicology screen. Plan to continue current antiepileptics along with seizure p recautions and as needed Ativan. Patient appears to be more appropriate 3. Multifactorial shock The patient initially developed hypotension as a consequence of sedative medication use. Therefore, her hemodynamic instability may be the consequence of the propofol and fentanyl currently being utilized to keep her comfortable while intubated. Alternatively, sepsis related to gram-negative UTI is likely also contributing. Repeat cultures have been unrevealing. The patient will be maintained on Levophed to maintain a mean arterial pressure at or above 65 mmHg. Patient has had issues with relative adrenal insufficiency in the past. Will initiate stress dose steroids. 4. E. coli UTI Continue antimicrobials as ordered to complete treatment course. 5. History of end-stage COPD/chronic hypoxemic respiratory failu re/obstructive sleep apnea/frequent COPD exacerbations The patient has a known history of end-stage COPD with questionable outpatient medical compliance. The patient has had compliance issues in the past related to her supplemental oxygen use and noninvasive ventilator utilization. She will be maintained on scheduled bronchodilators for now. Management as noted above. 6. History of hemorrhagic CVA/former tobacco dependency/history of cardiomyopathy/anxiety/depression Complicates care, management, recovery and prognosis. Okay to advance tube feeds today from my perspective. Replete potassium as indicated. See orders. TIME: 32 minutes of critical care time, independent of procedures, was spent addres sing the patient's acute on chronic combined respiratory failure, encephalopathy, multifactorial shock, review of all data and collaboration with the care team. Subjective Subjective Patient did okay overnight. Patient has tolerated tube feeds. Patient has not been noted to have any seizures of last 24 hours. Patient continues on propofol and fentanyl and pressor requirements have significantly improved. Objective Data Objective Data Vital Signs: Vital Signs Temp Pulse Resp BP Pulse Ox O2 Del Method O2 Flow Rate 37.1 C 76 15 126/59 H 97 Mechanical Ventilator 4 07/05/22 04:00 07/05/22 06:51 07/05/22 06:51 07/05/22 06:00 07/05/22 06:51 07/05/22 06:00 07/03/22 01:15 FiO2 30 07/05/22 06:51 Oxygen Flow Rate (L/min) 4 Oxygen Delivery Method Mechanical Ventilator Weight: 68 kg Body Mass Index (BMI) 22.9 Intake & Output: Intake and Output for Last 24 Hours 07/03/22 07/04/22 07/05/22 23:59 23:59 23:59 Intake Total 1835.79 / 2055.67 3091.06 / 3245.96 1836.10 / 1836.10 Output Total 650 / 950 2250 / 2250 350 / 350 Balance 1185.79 / 1105.67 841.06 / 995.96 1486.10 / 1486.10 Medical Nutrition Assessment Dietitian: Malnutrition Criteria Met Start: 06/30/22 10:32 Freq: Status: Active Protocol: Document 07/04/22 10:22 AG (Rec: 07/04/22 10:56 AG [id number]) Nutrition Malnutrition Evidence of Malnutrition Exists Yes Malnutrition (severe): Chronic Evidenced By Weight Loss (Severe),Physical Changes (Moderate) Clinical Problem Chronic Disease or Condition Related Malnutrition Etiology severe, chronic malnutrition related to predicted inadequate oral intake Signs/Symptoms as evidenced by wt loss of 23. 6#/14% x 9 months, moderate muscle wasting/fat loss in orbital, temporal, clavicle, and acromion areas per physical exam Status Active Problem Recommendation Dietitian Recommendations/Changes NPO while intubated; Via OGT- Vital AF 1.2 at goal rate of 55mL/hour w/ 100mL H2O flush every 4 hours to provide 1584 calories, 99 g protein, and 1670mL total fluid/day. Lab / Micro Data Attestation: I reviewed the patient's lab results. Result Diagrams: 07/05/22 03:45 07/05/22 03:45 Labs: Laboratory Results - last 24 hr 07/05/22 03:45: WBC 10.8, RBC 3.40 L, Hgb 9.3 L, Hct 29.8 L, MCV 87.6, MCH 27.4, MCHC 31.2 L, RDW Std Deviation 54.6 H, RDW Coeff of Deonte 17.4 H, Plt Count 197, MPV 10.6, Immature Gran % (Auto) 0.600, Neut % (Auto) 81.2 H, Lymph % (Auto) 10.5 L, [place] % (Auto) 7.5, Eos % (Auto) 0.0, Baso % (Auto) 0.2, Absolute Neuts (auto) 8.8 H, Absolute Lymphs (auto) 1.14, Nucleated RBC % 0 07/05/22 03:45: Sodium 146 H, Potassium 3.7, Chloride 113 H, Carbon Dioxide 28.0, Anion Gap 5, BUN 13, Creatinine 0.55, Estim Creat Clear Calc 45.16, Est GFR (MDRD) Af Amer 141, Est GFR (MDRD) Non-Af 117, BUN/Creatinine Ratio 23.6 H, Glucose 181 H, Calcium 8.0 L, Phosphorus 2.7, Magnesium 2.7 H Micro: Microbiology 07/03/22 03:10 Sputum, Induced/Lukens Gram Stain - Final 07/03/22 03:10 Sputum, Induced/Lukens Respiratory Culture - Preliminary Culture exhibits no growth. 06/30/22 02:25 Sputum, Tracheal Aspirate Gram Stain - Final 06/30/22 02:25 Sputum, Tracheal Aspirate Respiratory Culture - Final 06/29/22 23:25 Urine Catheter - Fortune Urine Culture - Final Escherichia coli 06/29/22 23:15 Blood Culture (Wb) - Anticubital Right Blood Culture - Preliminary No growth in 48 hours. 06/29/22 22:48 Blood Culture (Wb) - Anticubital Right Blood Culture - Preliminary No growth in 48 hours. 06/30/22 02:35 Mucosa - Nasopharyngeal Respiratory Panel (PCR) - Final 06/29/22 23:30 Nasal Secretion SARS-CoV-2 & FLU Antigen (Rapid) - Final Physical Exam Const alert and no apparent distress Constitutional Narrative: Anasarca noted General Appearance: intubated and patient mechanically ventilated HEENT normocephalic and head/scalp atraumatic Mouth: endotracheal tube in place and OG tube in place Eyes PERRL and EOMs intact bilaterally Eyes Narrative: Does track appropriately Neck supple General: trachea midline Chest Chest Narrative: Increased AP diameter Resp Auscultation: rales and diminished lung sounds; Negative for rhonchi or wheezes Cardio regular rate, regular rhythm, S1 normal heart sound, S2 normal heart sound, no murmurs, no rub and no gallops GI normal to inspection, nondistended, normoactive bowel sounds Extremity no clubbing, cyanosis or edema Extremity Narrative: 2+ anasarca noted General Extremity: edema bilateral Skin no rashes or lesions noted Neuro Neuro Narrative: Alert and able to follow simple commands. Sensorium / Orientation: sedated on vent Psych Mood & Affect: flat affect Charges/Coding Procedures Hospitalists Procedures: 38818 Critial Care 1st Hr
[2022-07-05] MEDS: Chlorhexidine 15 ML PO ×2 (11:15→21:07)
[2022-07-05] MEDS: Enoxaparin 40 MG/0.4 ML Syringe SC (11:15)
[2022-07-05] MEDS: Polyethylene Glycol 3350 17 GM PACKET GT ×2 (11:15→21:08)
[2022-07-05] MEDS: Famotidine 200 MG/20 ML MDV 20 MG in 0.9% Normal Saline (Pres. free 8 ML 300 MG IV ×2 (11:16→21:11)
[2022-07-05] MEDS: Senna/Docusate Sodium 1 Tablet 2 TABLET GT ×2 (11:16→21:07)
[2022-07-05] MEDS: Propofol 10MG/Ml 1,000 MG/100 ML Bottle 15.8 MG CONT INF (12:44)
--- NOTE | 2022-07-05 14:29 | PN.HOSP_ITS ---
Subjective Subjective In and examined today, she remains sedated and on the ventilator. I talked briefly with critical care about her care. Objective Data Objective Data Vital Signs: Vital Signs Temp Pulse Resp BP Pulse Ox O2 Del Method O2 Flow Rate 99.4 F H 69 14 109/48 L 97 Mechanical Ventilator 4 07/05/22 12:00 07/05/22 12:22 07/05/22 12:22 07/05/22 12:00 07/05/22 12:22 07/05/22 12:00 07/03/22 01:15 FiO2 30 07/05/22 12:22 Oxygen Flow Rate (L/min) 4 Oxygen Delivery Method Mechanical Ventilator Weight: 68 kg Body Mass Index (BMI) 22.9 Intake & Output: Intake and Output for Last 24 Hours 07/03/22 07/04/22 07/05/22 23:59 23:59 23:59 Intake Total 1835.79 / 2055.67 3091.06 / 3245.96 2355.45 / 2355.45 Output Total 650 / 950 2250 / 2250 350 / 350 Balance 1185.79 / 1105.67 841.06 / 995.96 2004.45 / 2004.45 Medical Nutrition Assessment Dietitian: Malnutrition Criteria Met Start: 06/30/22 1 0:32 Freq: Status: Active Protocol: Document 07/05/22 11:07 RMA (Rec: 07/05/22 11:07 RMA [id number]) Nutrition Malnutrition Evidence of Malnutrition Exists Yes Malnutrition (severe): Chronic Evidenced By Weight Loss (Severe),Physical Changes (Moderate) Clinical Problem Chronic Disease or Condition Related Malnutrition Etiology severe, chronic malnutrition related to predicted inadequate oral intake Signs/Symptoms as evidenced by wt loss of 23. 6#/14% x 9 months, moderate muscle wasting/fat loss in orbital, temporal, clavicle, and acromion areas per physical exam Status Active Problem Recommendation Dietitian Recommendations/Changes NPO while intubated; Via OGT- Vital AF 1.2 at goal rate of 55mL/hour w/ 100mL H2O flush every 4 hours to provide 1584 calories, 99 g protein, and 1670mL total fluid/day. Lab / Micro Data Result Diagrams: 07/05/22 03:45 07/05/22 03:45 Labs: Laboratory Results - last 24 hr 07/05/22 03:45: WBC 10.8, RBC 3.40 L, Hgb 9.3 L, Hct 29.8 L, MCV 87.6, MCH 27.4, MCHC 31.2 L, RDW Std Deviation 54.6 H, RDW Coeff of Deonte 17.4 H, Plt Count 197, MPV 10.6, Immature Gran % (Auto) 0.600, Neut % (Auto) 81.2 H, Lymph % (Auto) 10.5 L, [place] % (Auto) 7.5, Eos % (Auto) 0.0, Baso % (Auto) 0.2, Absolute Neuts (auto) 8.8 H, Absolute Lymphs (auto) 1.14, Nucleated RBC % 0 07/05/22 03:45: Sodium 146 H, Potassium 3.7, Chloride 113 H, Carbon Dioxide 28.0, Anion Gap 5, BUN 13, Creatinine 0.55, Estim Creat Clear Calc 45.16, Est GFR (MDRD) Af Amer 141, Est GFR (MDRD) Non-Af 117, BUN/Creatinine Ratio 23.6 H, Glucose 181 H, Calcium 8.0 L, Phosphorus 2.7, Magnesium 2.7 H Micro: Microbiology 06/29/22 23:15 Blood Culture (Wb) - Anticubital Right Blood Culture - Final No growth in 5 days. 06/29/22 22:48 Blood Culture (Wb) - Anticubital Right Blood Culture - Final No growth in 5 days. 07/03/22 03:10 Sputum, Induced/Lukens Gram Stain - Final 07/03/22 03:10 Sputum, Induced/Lukens Respiratory Culture - Preliminary Culture exhibits no growth. 06/30/22 02:25 Sputum, Tracheal Aspirate Gram Stain - Final 06/30/22 02:25 Sputum, Tracheal Aspirate Respiratory Culture - Final 06/29/22 23:25 Urine Catheter - Fortune Urine Culture - Final Escherichia coli 06/30/22 02:35 Mucosa - Nasopharyngeal Respiratory Panel (PCR) - Final 06/29/22 23:30 Nasal Secretion SARS-CoV-2 & FLU Antigen (Rapid) - Final Physical Exam Narrative Constitutional Narrative: Patient is lightly sedated and on the ventilator HEENT head/scalp atraumatic Head and Scalp: normocephalic Eyes conjunctivae normal Neck no JVD Resp normal respiratory effort, no retractions, no use of accessory muscles and clear to auscultation bilaterally Cardio regular rate, regular rhythm, S1 normal heart sound, S2 normal heart sound, no murmurs and no rub GI normal to inspection, nondistended, normoactive bowel sounds and non-distended Extremity normal to inspection Neuro Neuro Narrative: Patient is sedated on the ventilator Psych Psych Narrative: Patient is lightly sedated and on the ventilator Assessment & Plan Assessment/Plan (1) Altered mental status: PLAN: Plan 1. Acute on chronic hypoxic respiratory failure-exact etiology unclear at this point, pulmonary medicine is managing vent #2 acute encephalopathy-possibly secondary to postictal versus toxic, supportive care will be given, patient is now on the ventilator again and is under sedation #3 seizure disorder-etiology unclear at this point, patient is on antiseizure medications #4 coronary artery disease-patient appears stable at this time #5 chronic obstructive pulmonary disease-patient is stable at this time #6 anemia-etiology unclear, labs will be monitored, patient does not require a blood transfusion at this time, I will order iron studies on the patient #7 hypokalemia-potassium replacement will be ordered, labs will be monitored #8 cerebrovascular disease-patient has a history of strokes in the past and she also had a history of a hemorrhagic CVA requiring transfer to [facility] in January 2022, MRI did not show any recent strokes #9 severe chronic protein and caloric malnutrition-nutritional services is seeing patient, this is a result of weight loss of 23.6 pounds over 9 months, moderate muscle fat loss and orbital, temporal, clavicular area, and acromion area per physical exam-patient is receiving tube feedings at the direction of nutritional services at this time #10 multifactorial shock-patient is hypotensive today and is on IV pressors, exact etiology is unclear #11 acute cystitis secondary to E. coli-patient remains on antibiotics, she will have a 7-day course Charges/Coding Visit Charges Inpatient E&M: 91296 Subs Hosp L2
[2022-07-05] MEDS: Ceftriaxone 1 GM/50 ML BAG IV (21:11)
[2022-07-06] VITALS (46 sets, daily range): BP systolic 79–140; BP diastolic 42–96; PULSE 78–153; RESP 14–22; TEMP 37.3–38.2; O2SAT 88–100
[2022-07-06] MEDS: Acetaminophen 650 MG/20 ML UDC GT (00:26)
[2022-07-06] MEDS: Ipratropium/Albuterol Sulfate 3 ML AMPUL.NEB INHALATION ×3 (01:52→20:01)
[2022-07-06] MEDS: 0.9% Saline Lock 10 ML Syringe IV ×2 (03:24→13:13)
[2022-07-06] MEDS: CHLORHEXIDINE GLUC 2% CLOTH 1 EACH TOWELETTE TOPICAL (03:24)
[2022-07-06] MEDS: TITRATION PARAMETER CHANGE 1 EACH IV (03:25)
[2022-07-06 03:29] LABS: Absolute Lymphocyte Count 1.24 X10^3/uL (0.83-4.51); Absolute Neutrophil Count 8.4 X10^3/uL (2.0-7.7); Basophil# 0.04 X10^3/uL; Basophil% 0.4 % (0-1); Eosinophil# 0.01 X10^3/uL; Eosinophils% 0.1 % (0-5); Hematocrit 27.7 % (37-47); Hemoglobin 8.6 g/dL (12.0-15.0); Lymphocyte # 1.24 X10^3/ul (0.83-4.51); Lymphocyte % 11.6 % (19-41); Mean Corpuscular Hgb 27.7 pg (27.0-32.0); Mean Corpuscular Volume 89.1 fL (81-99); Mean Platelet Vol. 10.7 fl (6.2-12.0); Monocyte# 0.88 X10^3/uL; Monocyte% 8.2 % (0-10); NRBC Flagged by Analyzer 0 % (0-5); Neutrophil % 78.4 % (47-70); Platelet Count 197 K/mm3 (150-450); RBC Distribution Width CV 18.4 % (11.6-14.6); RBC Distribution Width SD 57.3 fl (35.1-43.9); Red Blood Count 3.11 M/mm3 (4.2-5.4); White Blood Count 10.7 K/mm3 (4.4-11.0)
[2022-07-06 03:52] LABS: Anion Gap 4 (5-15); BUN 21 mg/dL (7-18); BUN/Creat Ratio 35.1 RATIO (10-20); Calcium,Total 7.9 mg/dL (8.5-10.1); Chloride 114 mmol/L (98-107); EST Glomerular Filtration Rate 106 mL/min (>60); Est Glom Filt Rate - Afr Amer 129 mL/min (>60); Estimated Creatinine Clearance 45.16 ml/min; Glucose 131 mg/dL (74-106); Potassium 3.6 mmol/L (3.5-5.1); Sodium Level 147 mmol/L (136-145)
--- NOTE | 2022-07-06 04:00 | NURSING ---
Fentanyl turned down from 100mcg to 50mcg/min for SAT, explained to pt and she continuously shook her head no. When asked if she wanted the breathing tube out, she said no again.
--- NOTE | 2022-07-06 04:48 | NURSING ---
Pt seen on camera scooting self down to bottom of bed. Pt flipped her hand around to move this RN out of her way to get up. Pt reoriented to environment and breathing tube w/awakening trial. She began to stomp foot into mattress and tap siderail of bed. Propofol remains on hold and fentanyl at 50mcg.
[2022-07-06] MEDS: Propofol 10MG/Ml 1,000 MG/100 ML Bottle 4.2 MG CONT INF (05:34)
[2022-07-06] MEDS: Phenytoin Na 100 MG/2 ML Vial IV ×3 (05:37→20:35)
[2022-07-06] MEDS: Hydrocortisone Sod Succinate 100 MG/2 ML Vial IV ×3 (05:37→20:35)
--- NOTE | 2022-07-06 06:55 | PCM.PN.INT ---
Assessment & Plan Assessment/Plan (1) Acute and chronic respiratory failure with hypercapnia: PLAN: Plan RECOMMENDATIONS: 1. Continue assist-control mode of mechanical ventilation. Wean FiO2/PEEP for saturations greater than 90%. 2. Continue tube feeds 3. Continue antiepileptics, along with seizure precautions. 4. Actively diurese. Continue stress dose steroids 5. Electrolyte repletion as indicated 6. Continue scheduled bronchodilators and antimicrobials. 7. Continue appropriate ICU prophylaxis. 8. Transition to Precedex therapy IMPRESSIONS: 1. Acute on chronic combined respiratory failure The patient has known end-stage COPD and chronic hypoxemic respiratory failure, along with baseline CO2 retention. She has questionable compliance with her outpatient noninvasive ventilator. I do suspect that her acute respiratory decompensation may have been triggered by a postictal state and/or polypharmacy effects. The patient actually improved from a respiratory perspective and was extubated on July 02. However, she apparently decompensated overnight after receiving a one-time dose of Vistaril. Potential etiologies for her decompensation overnight include medication induced respiratory depression versus seizures and subsequent postictal state. The patient was reintubated on July 03. FiO2 will be weaned for saturations greater than 90%. Patient off pressors. We will actively diurese and transition to Precedex therapy to optimize for potential extubation in the next 24 to 48 hours. 2. Encephalopathy Improving. Likely metabolic in the setting of CO2 retention and/or related to postictal state in the setting of new onset seizure activity. In addition, there is some question as to whether possible polypharmacy may have also been contributing, as the patient was positive for benzodiazepines and opiates on her toxicology screen. Plan to continue current antiepileptics along with seizure precautions and as needed Ativan. Patient appears to be more appropriate 3. Multifactorial shock/relative adrenal insufficiency Resolved. The patient initially developed hypotension as a consequence of sedative medication use. Therefore, her hemodynamic instability may be the consequence of the propofol and fentanyl currently being utilized to keep her comfortable while intubated. Alternatively, sepsis related to gram-negative UTI is likely also contributing. Repeat cultures have been unrevealing. Patient rapidly improved on pressor requirements after initiation of stress dose steroids. 4. E. coli UTI Continue antimicrobials as ordered to complete treatment course. 5. History of end-stage COPD/chronic hypoxemic respiratory failure/obstructive sleep apnea/frequent COPD exacerbations The patient has a known history of end-stage COPD with questionable outpatient medical compliance. The patient has had compliance issues in the past related to her supplemental oxygen use and noninvasive ventilator utilization. She will be maintained on scheduled bronchodilators for now. Management as noted above. 6. History of hemorrhagic CVA/former tobacco dependency/history of cardiomyopathy/anxiety/depression Complicates care, management, recovery and prognosis. Okay to continue tube feeds today from my perspective. Replete potassium as indicated. See orders. TIME: 34 minutes of critical care time, independent of procedures, was spent addressing the patient's acute on chronic combined respiratory failure, encephalopathy, multifactorial shock, review of all data and collaboration with the care team. Subjective Subjective Patient did okay overnight. No acute issues were reported. No seizures were reported. Patient has come off of Levophed. Patient became very agitated with spontaneous breathing trial this morning. Objective Data Objective Data Vital Signs: Vital Signs Temp Pulse Resp BP Pulse Ox O2 Del Method O2 Flow Rate 37.7 C H 129 H 16 126/57 H 96 Mechanical Ventilator 4 07/06/22 06:00 07/06/22 06:00 07/06/22 06:00 07/06/22 06:00 07/06/22 06:00 07/06/22 06:00 07/03/22 01:15 FiO2 30 07/06/22 06:00 Oxygen Flow Rate (L/min) 4 Oxygen Delivery Method Mechanical Ventilator Weight: 69.9 kg Body Mass Index (BMI) 22.9 Intake & Output: Intake and Output for Last 24 Hours 07/04/22 07/05/22 07/06/22 23:59 23:59 23:59 Intake Total 3091.06 / 3245.96 3984.43 / 4107.33 655.26 / 655.26 Output Total 2250 / 2250 1250 / 1250 275 / 275 Balance 841.06 / 995.96 2734.43 / 2857.33 380.26 / 380.26 Medical Nutrition Assessment Dietitian: Malnutrition Criteria Met Start: 06/30/22 10:32 Freq: Status: Active Protocol: Document 07/05/22 11:07 RMA (Rec: 07/05/22 11:07 RMA [id number]) Nutrition Malnutrition Evidence of Malnutrition Exists Yes Malnutrition (severe): Chronic Evidenced By Weight Loss (Severe),Physical Changes (Moderate) Clinical Problem Chronic Disease or Condition Related Malnutrition Etiology severe, chronic malnutrition related to predicted inadequate oral intake Signs/Symptoms as evidenced by wt loss of 23. 6#/14% x 9 months, moderate muscle wasting/fat loss in orbital, temporal, clavicle, and acromion areas per physical exam Status Active Problem Recommendation Dietitian Recommendations/Changes NPO while intubated; Via OGT- Vital AF 1.2 at goal rate of 55mL/hour w/ 100mL H2O flush every 4 hours to provide 1584 calories, 99 g protein, and 1670mL total fluid/day. Lab / Micro Data Attestation: I reviewed the patient's lab results. Result Diagrams: 07/06/22 03:20 07/06/22 03:20 Labs: Laboratory Results - last 24 hr 07/06/22 03:20: WBC 10.7, RBC 3.11 L, Hgb 8.6 L, Hct 27.7 L, MCV 89.1, MCH 27.7, MCHC 31.0 L, RDW Std Deviation 57.3 H, RDW Coeff of Deonte 18.4 H, Plt Count 197, MPV 10.7, Immature Gran % (Auto) 1.300 H, Neut % (Auto) 78.4 H, Lymph % (Auto) 11.6 L, [place] % (Auto) 8.2, Eos % (Auto) 0.1, Baso % (Auto) 0.4, Absolute Neuts (auto) 8.4 H, Absolute Lymphs (auto) 1.24, Nucleated RBC % 0 07/06/22 03:20: Sodium 147 H, Potassium 3.6, Chloride 114 H, Carbon Dioxide 29.0, Anion Gap 4 L, BUN 21 H, Creatinine 0.60, Estim Creat Clear Calc 45.16, Est GFR (MDRD) Af Amer 129, Est GFR (MDRD) Non-Af 106, BUN/Creatinine Ratio 35.1 H, Glucose 131 H, Calcium 7.9 L Micro: Microbiology 06/29/22 23:15 Blood Culture (Wb) - Anticubital Right Blood Culture - Final No growth in 5 days. 06/29/22 22:48 Blood Culture (Wb) - Anticubital Right Blood Culture - Final No growth in 5 days. 07/03/22 03:10 Sputum, Induced/Lukens Gram Stain - Final 07/03/22 03:10 Sputum, Induced/Lukens Respiratory Culture - Preliminary Culture exhibits no growth. 06/30/22 02:25 Sputum, Tracheal Aspirate Gram Stain - Final 06/30/22 02:25 Sputum, Tracheal Aspirate Respiratory Culture - Final 06/29/22 23:25 Urine Catheter - Fortune Urine Culture - Final Escherichia coli 06/30/22 02:35 Mucosa - Nasopharyngeal Respiratory Panel (PCR) - Final 06/29/22 23:30 Nasal Secretion SARS-CoV-2 & FLU Antigen (Rapid) - Final Physical Exam Const alert and no apparent distress Constitutional Narrative: Anasarca noted General Appearance: intubated and patient mechanically ventilated HEENT normocephalic and head/scalp atraumatic Mouth: endotracheal tube in place and OG tube in place Eyes PERRL and EOMs intact bilaterally Eyes Narrative: Does track and shake head appropriately Neck supple General: trachea midline Chest Chest Narrative: Increased AP diameter Resp Auscultation: rales and diminished lung sounds; Negative for rhonchi or wheezes Cardio regular rate, regular rhythm, S1 normal heart sound, S2 normal heart sound, no murmurs, no rub and no gallops GI normal to inspection, nondistended, normoactive bowel sounds Extremity no clubbing, cyanosis or edema Extremity Narrative: 2+ anasarca noted General Extremity: edema bilateral Skin no rashes or lesions noted Neuro Neuro Narrative: Alert and able to follow simple commands. Sensorium / Orientation: sedated on vent Psych Mood & Affect: flat affect Charges/Coding Procedures Hospitalists Procedures: 75636 Critial Care 1st Hr
[2022-07-06] MEDS: Chlorhexidine 15 ML PO ×2 (08:09→20:34)
[2022-07-06] MEDS: Furosemide 40 MG/4 ML Vial IV ×2 (08:09→17:18)
[2022-07-06] MEDS: Potassium Chloride Oral Soln 20 MEQ/15 ML UDC 40 MEQ PO ×2 (08:09→20:35)
[2022-07-06] MEDS: Polyethylene Glycol 3350 17 GM PACKET GT ×2 (08:10→20:35)
[2022-07-06] MEDS: Enoxaparin 40 MG/0.4 ML Syringe SC (08:10)
[2022-07-06] MEDS: Senna/Docusate Sodium 1 Tablet 2 TABLET GT ×2 (08:10→20:35)
[2022-07-06] MEDS: Famotidine 200 MG/20 ML MDV 20 MG in 0.9% Normal Saline (Pres. free 8 ML 300 MG IV ×2 (09:40→20:35)
--- NOTE | 2022-07-06 11:38 | NURSING ---
core temp cord on soliman became dislodged while pt standing with therapy, wires exposed. New catheter placed
--- NOTE | 2022-07-06 16:50 | PN.HOSP_ITS ---
Subjective Subjective Patient was seen and examined today, she remains on the ventilator under sedation at this time. Patient opens eyes to verbal stimulation, she does not follow commands. Objective Data Objective Data Vital Signs: Vital Signs Temp Pulse Resp BP Pulse Ox O2 Del Method O2 Flow Rate 100.7 F H 91 14 99/49 L 96 Mechanical Ventilator 4 07/06/22 16:00 07/06/22 16:00 07/06/22 16:00 07/06/22 16:00 07/06/22 16:00 07/06/22 16:00 07/03/22 01:15 FiO2 40 07/06/22 16:00 Oxygen Flow Rate (L/min) 4 Oxygen Delivery Method Mechanical Ventilator Weight: 69.9 kg Body Mass Index (BMI) 22.9 Intake & Output: Intake and Output for Last 24 Hours 07/04/22 07/05/22 07/06/22 23:59 23:59 23:59 Intake Total 3091.06 / 3245.96 3984.43 / 4107.33 1280.19 / 1280.19 Output Total 2250 / 2250 1250 / 1250 1825 / 1825 Balance 841.06 / 995.96 2734.43 / 2857.33 -544.81 / -544.81 Medical Nutrition Assessment Dietitian: Malnutrition Criteria Met Start: 06/30/22 10:32 Freq: Status: Active Protocol: Document 07/06/22 10:14 RMA (Rec: 07/06/22 10:14 RMA [id number]) Nutrition Malnutrition Evidence of Malnutrition Exists Yes Malnutrition (severe): Chronic Evidenced By Weight Loss (Severe),Physical Changes (Moderate) Clinical Problem Chronic Disease or Condition Related Malnutrition Etiology severe, chronic malnutrition related to predicted inadequate oral intake Signs/Symptoms as evidenced by wt loss of 23. 6#/14% x 9 months, moderate muscle wasting/fat loss in orbital, temporal, clavicle, and acromion areas per physical exam Status Active Problem Recommendation Dietitian Recommendations/Changes NPO while intubated; Continue TF support via OGT- Vital AF 1 .2 at goal rate of 55mL/hour w / 100mL H2O flush every 4 hours to provide 1584 calories , 99 g protein, and 1670mL total fluid/day. Lab / Micro Data Result Diagrams: 07/06/22 03:20 07/06/22 03:20 Labs: Laboratory Results - last 24 hr 07/06/22 03:20: WBC 10.7, RBC 3.11 L, Hgb 8.6 L, Hct 27.7 L, MCV 89.1, MCH 27.7, MCHC 31.0 L, RDW Std Deviation 57.3 H, RDW Coeff of Deonte 18.4 H, Plt Count 197, MPV 10.7, Immature Gran % (Auto) 1.300 H, Neut % (Auto) 78.4 H, Lymph % (Auto) 11.6 L, [place] % (Auto) 8.2, Eos % (Auto) 0.1, Baso % (Auto) 0.4, Absolute Neuts (auto) 8.4 H, Absolute Lymphs (auto) 1.24, Nucleated RBC % 0 07/06/22 03:20: Sodium 147 H, Potassium 3.6, Chloride 114 H, Carbon Dioxide 29.0, Anion Gap 4 L, BUN 21 H, Creatinine 0.60, Estim Creat Clear Calc 45.16, Est GFR (MDRD) Af Amer 129, Est GFR (MDRD) Non-Af 106, BUN/Creatinine Ratio 35.1 H, Glucose 131 H, Calcium 7.9 L Micro: Microbiology 07/03/22 03:10 Sputum, Induced/Lukens Gram Stain - Final 07/03/22 03:10 Sputum, Induced/Lukens Respiratory Culture - Final Culture exhibits no growth. 06/29/22 23:15 Blood Culture (Wb) - Anticubital Right Blood Culture - Final No growth in 5 days. 06/29/22 22:48 Blood Culture (Wb) - Anticubital Right Blood Culture - Final No growth in 5 days. 06/30/22 02:25 Sputum, Tracheal Aspirate Gram Stain - Final 06/30/22 02:25 Sputum, Tracheal Aspirate Respiratory Culture - Final 06/29/22 23:25 Urine Catheter - Fortune Urine Culture - Final Escherichia coli 06/30/22 02:35 Mucosa - Nasopharyngeal Respiratory Panel (PCR) - Final 06/29/22 23:30 Nasal Secretion SARS-CoV-2 & FLU Antigen (Rapid) - Final Physical Exam Narrative Constitutional Narrative: Patient is lightly sedated and on the ventilator HEENT head/scalp atraumatic Head and Scalp: normocephalic Eyes conjunctivae normal Neck no JVD Resp normal respiratory effort, no retractions, no use of accessory muscles and clear to auscultation bilaterally Cardio regular rate, regular rhythm, S1 normal heart sound, S2 normal heart sound, no murmurs and no rub GI normal to inspection, nondistended, normoactive bowel sounds and non-distended Extremity normal to inspection Neuro Neuro Narrative: Patient is sedated on the ventilator Psych Psych Narrative: Patient is lightly sedated and on the ventilator Assessment & Plan Assessment/Plan (1) Altered mental status: PLAN: Plan 1. Acute on chronic hypoxic respiratory failure-exact etiology unclear at this point, pulmonary medicine is managing vent #2 acute encephalopathy-possibly secondary to postictal versus toxic, supportive care will be given, patient is now on the ventilator again and is under sedation #3 seizure disorder-etiology unclear at this point, patient is on antiseizure medications #4 coronary artery disease-patient appears stable at this time #5 chronic obstructive pulmonary disease-patient is stable at this time #6 anemia-etiology unclear-appears to be iron deficiency, labs will be monitored, patient does not require a blood transfusion at this time, I will give the patient Venofir #7 hypokalemia-resolved at this time #8 cerebrovascular disease-patient has a history of strokes in the past and she also had a history of a hemorrhagic CVA requiring transfer to [facility] in January 2022, MRI did not show any recent strokes #9 severe chronic protein and caloric malnutrition-nutritional services is seeing patient, this is a result of weight loss of 23.6 pounds over 9 months, moderate muscle fat loss and orbital, temporal, clavicular area, and acromion area per physical exam-patient is receiving tube feedings at the direction of nutritional services at this time #10 multifactorial shock-patient is hypotensive today and is on IV pressors, exact etiology is unclear #11 acute cystitis secondary to E. coli-patient completed a 7-day course of antibiotics Total clinical time spent by myself addressing the patient's medical issues, reviewing all the data, and collaborating with patient's care team: 36 minutes Charges/Coding Visit Charges Inpatient E&M: 92289 Subs Hosp L2
[2022-07-06] MEDS: Dexmedetomidine 1,000 mcg in 0.9% NS 240 mL 26.2 MCG CONT INF (18:57)
[2022-07-06] MEDS: Vital AF 1.2 Cal Liquid 1,000 ML 55 ML GT (19:41)
[2022-07-07] VITALS (53 sets, daily range): BP systolic 87–117; BP diastolic 38–70; PULSE 73–113; RESP 12–25; TEMP 37.6–38.1; O2SAT 91–100
[2022-07-07] MEDS: Ipratropium/Albuterol Sulfate 3 ML AMPUL.NEB INHALATION ×4 (01:15→19:23)
[2022-07-07 03:58] LABS: Absolute Lymphocyte Count 1.42 X10^3/uL (0.83-4.51); Absolute Neutrophil Count 5.9 X10^3/uL (2.0-7.7); Basophil# 0.03 X10^3/uL; Basophil% 0.4 % (0-1); Eosinophil# 0.01 X10^3/uL; Eosinophils% 0.1 % (0-5); Hematocrit 25.3 % (37-47); Hemoglobin 7.7 g/dL (12.0-15.0); Lymphocyte # 1.42 X10^3/ul (0.83-4.51); Lymphocyte % 17.1 % (19-41); Mean Corp Hgb Conc 30.4 g/dL (32-36); Mean Corpuscular Hgb 27.1 pg (27.0-32.0); Mean Corpuscular Volume 89.1 fL (81-99); Mean Platelet Vol. 10.5 fl (6.2-12.0); Monocyte# 0.84 X10^3/uL; Monocyte% 10.1 % (0-10); NRBC Flagged by Analyzer 0 % (0-5); Neutrophil # 5.89 X10^3/uL (2.7-7.7); Neutrophil % 71.1 % (47-70); Platelet Count 186 K/mm3 (150-450); RBC Distribution Width SD 57.4 fl (35.1-43.9); Red Blood Count 2.84 M/mm3 (4.2-5.4); White Blood Count 8.3 K/mm3 (4.4-11.0)
[2022-07-07 04:17] LABS: ALB/GLOB Ratio 0.7 RATIO (0.9-2.4); AST(SGOT) 15 U/L (15-37); Alanine Aminotransfer ALT/SGPT 21 U/L (13-56); Albumin, Serum 2.1 g/dL (3.2-5.0); Alkaline Phosphatase 66 U/L (45-117); Anion Gap 4 (5-15); BUN 20 mg/dL (7-18); BUN/Creat Ratio 35.9 RATIO (10-20); Calcium,Total 7.8 mg/dL (8.5-10.1); Chloride 109 mmol/L (98-107); Creatinine, Serum 0.56 mg/dL (0.55-1.02); EST Glomerular Filtration Rate 115 mL/min (>60); Est Glom Filt Rate - Afr Amer 139 mL/min (>60); Estimated Creatinine Clearance 45.16 ml/min; Globulin 3.2 g/dL (2.2-4.2); Glucose 141 mg/dL (74-106); Potassium 3.4 mmol/L (3.5-5.1); Protein, Total 5.3 g/dL (6.4-8.2); Sodium Level 144 mmol/L (136-145)
[2022-07-07] MEDS: Dexmedetomidine 1,000 mcg in 0.9% NS 240 mL 26.2 MCG CONT INF ×2 (04:30→14:49)
[2022-07-07] MEDS: 0.9% Saline Lock 10 ML Syringe IV ×4 (05:12→14:10)
[2022-07-07] MEDS: CHLORHEXIDINE GLUC 2% CLOTH 1 EACH TOWELETTE TOPICAL (05:12)
[2022-07-07] MEDS: Phenytoin Na 100 MG/2 ML Vial IV ×3 (05:13→20:53)
[2022-07-07] MEDS: Hydrocortisone Sod Succinate 100 MG/2 ML Vial IV ×3 (05:13→20:52)
[2022-07-07] MEDS: Potassium Chloride 20mEq/100mL 20 MEQ/100 ML IV.SOLN. 100 MEQ IV BOLUS ×2 (06:08→07:35)
[2022-07-07] MEDS: Furosemide 40 MG/4 ML Vial IV ×3 (06:09→20:52)
--- NOTE | 2022-07-07 07:51 | PN.CC_ITS ---
Assessment & Plan Assessment/Plan (1) Acute and chronic respiratory failure with hypercapnia: PLAN: Plan RECOMMENDATIONS: 1. Continue assist-control mode of mechanical ventilation. Wean FiO2/PEEP for saturations greater than 90%. 2. Continue tube feeds. 3. Continue antiepileptics, along with seizure precautions. 4. Increase doses for diuresis. Continue stress dose steroids. Single dose of Decadron 5. Electrolyte repletion as indicated 6. Continue scheduled bronchodilators and antimicrobials. 7. Continue appropriate ICU prophylaxis. 8. Transition to Precedex therapy IMPRESSIONS: 1. Acute on chronic combined respiratory failure The patient has known end-stage COPD and chronic hypoxemic respiratory f ailure, along with baseline CO2 retention. She has questionable compliance with her outpatient noninvasive ventilator. I do suspect that her acute respiratory decompensation may have been triggered by a postictal state and/or polypharmacy effects. The patient actually improved from a respiratory perspective and was extubated on July 02. However, she apparently decompensated overnight after receiving a one-time dose of Vistaril. Potential etiologies for her decompensation overnight include medication induced respiratory depression versus seizures and subsequent postictal state. The patient was reintubated on July 03. FiO2 will be weaned for saturations greater than 90%. Patient responded to diuretics. Patient able to tolerate spontaneous breathing trial on Precedex, but did not have a leak. We will treat with Decadron and reattempt tomorrow. 2. Encephalopathy Improving. Likely metabolic in the setting of CO2 retention and/or related to postictal state in the setting of new onset seizure activity. In addition, there is some question as to whether possible polypharmacy may have also been contributing, as the patient was positive for benzodiazepines and opiates on her toxicology screen. Plan to continue current antiepileptics along with seizure precautions and as needed Ativan. Patient appears to be more appropriate 3. Multifactorial shock/relative adrenal insufficiency Resolved. The patient initially developed hypotension as a consequence of sedative medication use. Therefore, her hemodynamic instability may be the consequence of the propofol and fentanyl currently being utilized to keep her comfortable while intubated. Alternatively, sepsis related to gram-negative UTI is likely also contributing. Repeat cultures have been unrevealing. Patient rapidly improved on pressor requirements after initiation of stress dose steroids. 4. E. coli UTI Continue antimicrobials as ordered to complete treatment course. 5. History of end-stage COPD/chronic hypoxemic respiratory failure/obstructive sleep apnea/frequent COPD exacerbations The patient has a known history of end-stage COPD with questionable outpatient medical compliance. The patient has had compliance issues in the past related to her supplemental oxygen use and noninvasive ventilator utilization. She will be maintained on scheduled bronchodilators for now. Man agement as noted above. 6. History of hemorrhagic CVA/former tobacco dependency/history of cardiomyopathy/anxiety/depression Complicates care, management, recovery and prognosis. Okay to continue tube feeds today from my perspective. Replete potassium as indicated. See orders. TIME: 40 minutes of critical care time, independent of procedures, was spent addressing the patient's acute on chronic combined respiratory failure, encephalopathy, multifactorial shock, review of all data and collaboration with the care team. Subjective Subjective Patient appears to be doing okay this morning. Patient was able to tolerate a spontaneous breathing trial this morning, but then was found to not have a leak. Patient was given Decadron and reinitiated on support. Objective Data Objective Data Vital Signs: Vital Signs Temp Pulse Resp BP Pulse Ox O2 Del Method O2 Flow Rate 37.7 C H 106 H 25 H 102/53 L 98 Mechanical Ventilator 4 07/07/22 06:00 07/07/22 07:16 07/07/22 07:16 07/07/22 06:00 07/07/22 06:00 07/07/22 06:00 07/03/22 01:15 FiO2 40 07/07/22 06:00 Oxygen Flow Rate (L/min) 4 Oxygen Delivery Method Mechanical Ventilator Weight: 70.2 kg Body Mass Index (BMI) 22.9 Intake & Output: Intake and Output for Last 24 Hours 07/05/22 07/06/22 07/07/22 23:59 23:59 23:59 Intake Total 3984.43 / 4107.33 2847.90 / 2996.00 1045.06 / 1045.06 Output Total 1250 / 1250 3275 / 3525 550 / 550 Balance 2734.43 / 2857.33 -427.10 / -529.00 495.06 / 495.06 Medical Nutrition Assessment Dietitian: Malnutrition Criteria Met Start: 06/30/22 10:32 Freq: Status: Active Protocol: Document 07/06/22 10:14 RMA (Rec: 07/06/22 10:14 RMA [id number]) Nutrition Malnutrition Evidence of Malnutrition Exists Yes Malnutrition (severe): Chronic Evidenced By Weight Loss (Severe),Physical Changes (Moderate) Clinical Problem Chronic Disease or Condition Related Malnutrition Etiology severe, chronic malnutrition related to predicted inadequate oral intake Signs/Symptoms as evidenced by wt loss of 23. 6#/14% x 9 months, moderate muscle wasting/fat loss in orbital, temporal, clavicle, and acromion areas per physical exam Status Active Problem Recommendation Dietitian Recommendations/Changes NPO while intubated; Continue TF support via OGT- Vital AF 1 .2 at goal rate of 55mL/hour w / 100mL H2O flush every 4 hours to provide 1584 calories , 99 g protein, and 1670mL total fluid/day. Lab / Micro Data Attestation: I reviewed the patient's lab results. Result Diagrams: 07/07/22 03:45 07/07/22 03:45 Labs: Laboratory Results - last 24 hr 07/07/22 03:45: WBC 8.3, RBC 2.84 L, Hgb 7.7 L, Hct 25.3 L, MCV 89.1, MCH 27.1, MCHC 30.4 L, RDW Std Deviation 57.4 H, RDW Coeff of Deonte 18.0 H, Plt Count 186, MPV 10.5, Immature Gran % (Auto) 1.200 H, Neut % (Auto) 71.1 H, Lymph % (Auto) 17.1 L, [place] % (Auto) 10.1 H, Eos % (Auto) 0.1, Baso % (Auto) 0.4, Absolute Neuts (auto) 5.9, Absolute Lymphs (auto) 1.42, Nucleated RBC % 0 07/07/22 03:45: Sodium 144, Potassium 3.4 L, Chloride 109 H, Carbon Dioxide 31.0, Anion Gap 4 L, BUN 20 H, Creatinine 0.56, Estim Creat Clear Calc 45.16, Est GFR (MDRD) Af Amer 139, Est GFR (MDRD) Non-Af 115, BUN/Creatinine Ratio 35.9 H, Glucose 141 H, Calcium 7.8 L, Total Bilirubin 0.10 L, AST 15, ALT 21, Alkaline Phosphatase 66, Total Protein 5.3 L, Albumin 2.1 L, Globulin 3.2, Albumin/Globulin Ratio 0.7 L Micro: Microbiology 07/03/22 03:10 Sputum, Induced/Lukens Gram Stain - Final 07/03/22 03:10 Sputum, Induced/Lukens Respiratory Culture - Final Culture exhibits no growth. 06/29/22 23:15 Blood Culture (Wb) - Anticubital Right Blood Culture - Final No growth in 5 days. 06/29/22 22:48 Blood Culture (Wb) - Anticubital Right Blood Culture - Final No growth in 5 days. 06/30/22 02:25 Sputum, Tracheal Aspirate Gram Stain - Final 06/30/22 02:25 Sputum, Tracheal Aspirate Respiratory Culture - Final 06/29/22 23:25 Urine Catheter - Fortune Urine Culture - Final Escherichia coli 06/30/22 02:35 Mucosa - Nasopharyngeal Respiratory Panel (PCR) - Final 06/29/22 23:30 Nasal Secretion SARS-CoV-2 & FLU Antigen (Rapid) - Final Physical Exam Const alert and no apparent distress Constitutional Narrative: Anasarca noted General Appearance: intubated and patient mechanically ventilated HEENT normocephalic and head/scalp atraumatic HEENT Narrative: No leak noted following spontaneous breathing trial Mouth: endotracheal tube in place and OG tube in place Eyes PERRL and EOMs intact bilaterally Eyes Narrative: Does track and shake head appropriately Neck supple General: trachea midline Chest Chest Narrative: Increased AP diameter Resp Auscultation: diminished lung sounds; Negative for rales, rhonchi or wheezes Cardio regular rate, regular rhythm, S1 normal heart sound, S2 normal heart sound, no murmurs, no rub and no gallops GI normal to inspection, nondistended, normoactive bowel sounds Extremity no clubbing, cyanosis or edema Extremity Narrative: 2+ anasarca noted General Extremity: edema bilateral Skin no rashes or lesions noted Neuro Neuro Narrative: Alert and able to follow simple commands. Sensorium / Orientation: sedated on vent Psych Mood & Affect: flat affect Charges/Coding Procedures Hospitalists Procedures: 35563 Critial Care 1st Hr
[2022-07-07] MEDS: Chlorhexidine 15 ML PO ×2 (08:11→20:53)
--- NOTE | 2022-07-07 08:27 | CPS ---
Patient failed leak test, and put back on VC [place]
[2022-07-07] MEDS: dexAMETHasone 4 MG/ML Vial IV (08:38)
[2022-07-07] MEDS: Propofol 10MG/Ml 1,000 MG/100 ML Bottle 4.2 MG CONT INF (09:15)
[2022-07-07 09:51] LABS: Allen Test Positive; Base Excess 7 mmol/L (-2 to +2); Bicarbonate 30.5 mmol/L (22-26); Blood Gas Specimen Type ART; FI02 40; O2 Delivery Device CPAP; PEEP 5; PO2 65 mmHG (75-100); PS 5; SITE R Radial; SO2 93 % (95-99); Total Carbon Dioxide 32 mmol/L; pCO2 44.2 mmHg (35-45); pH 7.45 (7.35-7.45)
[2022-07-07] MEDS: Famotidine 200 MG/20 ML MDV 20 MG in 0.9% Normal Saline (Pres. free 8 ML 300 MG IV ×2 (10:06→20:52)
[2022-07-07] MEDS: Enoxaparin 40 MG/0.4 ML Syringe SC (10:07)
[2022-07-07] MEDS: Polyethylene Glycol 3350 17 GM PACKET GT ×2 (10:34→20:53)
[2022-07-07] MEDS: Potassium Chloride Oral Soln 20 MEQ/15 ML UDC 40 MEQ PO ×2 (10:34→20:53)
[2022-07-07] MEDS: Senna/Docusate Sodium 1 Tablet 2 TABLET GT ×2 (10:34→20:53)
--- NOTE | 2022-07-07 14:40 | RAD_ITS ---
STUDY: X-RAY CHEST REASON FOR EXAM: Female, 66 years old. Verify ETT placement TECHNIQUE: Single AP portable view of the chest. COMPARISON: Comparison is made with prior study dated 07/03/2022. FINDINGS: An endotracheal tube is in situ with the tip at 4 cm proximal to the claude. An orogastric tube is seen with the tip below the left hemidiaphragm. A right-sided PICC line catheter is in situ with the tip at the junction of the superior vena cava and right atrium. EKG electrodes are seen. Mild residual increased markings at the lung bases slightly more prominent on the left side although there has been improvement to prior study. There is no demonstrated pleural abnormality. Normal size heart. Normal mediastinum and jacinto. Normal visualized pulmonary arteries. Normal visualized aortic arch and descending thoracic aorta. Normal visualized thoracic spine. Normal visualized ribs, clavicles, and shoulders. There is no demonstrated abnormality of the visualized soft tissue structures of the upper abdomen. RAD/Chest 1 View (Portable) IMPRESSION: Improved aeration of the lung bases although mild residual increased markings persist worse at the left lung base. All the support tubes are in good position. Electronically Signed: Vinny Mcghee MD at 15:14 EST ,
[2022-07-07 15:25] LABS: Pathologist Review Reviewed
[2022-07-07] MEDS: Propofol 10MG/Ml 1,000 MG/100 ML Bottle 12.6 MG CONT INF ×2 (16:30→23:00)
--- NOTE | 2022-07-07 18:40 | PN.HOSP_ITS ---
Subjective Subjective Seen and examined today, I briefly talked with her daughter by phone today, she remains on the vent at this time, they did a weaning trial today according to nursing but she did not do well during the weaning trial. Objective Data Objective Data Vital Signs: Vital Signs Temp Pulse Resp BP Pulse Ox O2 Del Method O2 Flow Rate 99.9 F H 84 15 108/54 L 97 Mechanical Ventilator 4 07/07/22 17:00 07/07/22 17:00 07/07/22 17:00 07/07/22 17:45 07/07/22 17:00 07/07/22 17:00 07/03/22 01:15 FiO2 40 07/07/22 17:00 Oxygen Flow Rate (L/min) 4 Oxygen Delivery Method Mechanical Ventilator Weight: 70.2 kg Body Mass Index (BMI) 22.9 Intake & Output: Intake and Output for Last 24 Hours 07/05/22 07/06/22 07/07/22 23:59 23:59 23:59 Intake Total 3984.43 / 4107.33 2847.90 / 2996.00 2641.16 / 2641.16 Output Total 1250 / 1250 3275 / 3525 4100 / 4100 Balance 2734.43 / 2857.33 -427.10 / -529.00 -1458.84 / -1458.84 Medical Nutrition Assessment Dietitian: Malnutrition Criteria Met Start: 06/30/22 10:32 Freq: Status: Active Protocol: Document 07/07/22 10:20 AG (Rec: 07/07/22 10:43 AG [id number]) Nutrition Malnutrition Evidence of Malnutrition Exists Yes Malnutrition (severe): Chronic Evidenced By Weight Loss (Severe),Physical Changes (Moderate) Clinical Problem Chronic Disease or Condition Related Malnutrition Etiology severe, chronic malnutrition related to predicted inadequate oral intake Signs/Symptoms as evidenced by wt loss of 23. 6#/14% x 9 months, moderate muscle wasting/fat loss in orbital, temporal, clavicle, and acromion areas per physical exam Status Active Problem Recommendation Dietitian Recommendations/Changes NPO while intubated; Continue TF support via OGT- Vital AF 1 .2 at goal rate of 55mL/hour w / 100mL H2O flush every 4 hours to provide 1584 calories , 99 g protein, and 1670mL total fluid/day. Lab / Micro Data Result Diagrams: 07/07/22 03:45 07/07/22 03:45 Labs: Laboratory Results - last 24 hr 07/04/22 03:40: Diff Path Review Reviewed 07/07/22 03:45: WBC 8.3, RBC 2.84 L, Hgb 7.7 L, Hct 25.3 L, MCV 89.1, MCH 27.1, MCHC 30.4 L, RDW Std Deviation 57.4 H, RDW Coeff of [place]onte 18.0 H, Plt Count 186, MPV 10.5, Immature Gran % (Auto) 1.200 H, Neut % (Auto) 71.1 H, Lymph % (Auto) 17.1 L, [place] % (Auto) 10.1 H, Eos % (Auto) 0.1, Baso % (Auto) 0.4, Absolute Neuts (auto) 5.9, Absolute Lymphs (auto) 1.42, Nucleated RBC % 0 07/07/22 03:45: Sodium 144, Potassium 3.4 L, Chloride 109 H, Carbon Dioxide 31.0, Anion Gap 4 L, BUN 20 H, Creatinine 0.56, Estim Creat Clear Calc 45.16, Est GFR (MDRD) Af Amer 139, Est GFR (MDRD) Non-Af 115, BUN/Creatinine Ratio 35.9 H, Glucose 141 H, Calcium 7.8 L, Total Bilirubin 0.10 L, AST 15, ALT 21, Alkaline Phosphatase 66, Total Protein 5.3 L, Albumin 2.1 L, Globulin 3.2, Albumin/Globulin Ratio 0.7 L Micro: Microbiology 07/03/22 03:10 Sputum, Induced/Lukens Gram Stain - Final 07/03/22 03:10 Sputum, Induced/Lukens Respiratory Culture - Final Culture exhibits no growth. 06/29/22 23:15 Blood Culture (Wb) - Anticubital Right Blood Culture - Final No growth in 5 days. 06/29/22 22:48 Blood Culture (Wb) - Anticubital Right Blood Culture - Final No growth in 5 days. 06/30/22 02:25 Sputum, Tracheal Aspirate Gram Stain - Final 06/30/22 02:25 Sputum, Tracheal Aspirate Respiratory Culture - Final 06/29/22 23:25 Urine Catheter - Fortune Urine Culture - Final Escherichia coli 06/30/22 02:35 Mucosa - Nasopharyngeal Respiratory Panel (PCR) - Final 06/29/22 23:30 Nasal Secretion SARS-CoV-2 & FLU Antigen (Rapid) - Final ABG Data ABG results: ABG 07/07/22 07:29 Specimen Type ART Sample Site R Radial pH 7.45 Bicarbonate Actual 30.5 H Total CO2 32 Base Excess 7 H O2 Saturation 93 L O2 % 40 ABG pCO2 44.2 ABG pO2 65 L Royal Test Positive O2 Delivery Device CPAP POC PEEP 5 POC Pressure Suppt 5 Radiography Diagnostic Testing: Radiology Impression Chest X-Ray 07/07/22 14:40 IMPRESSION: Improved aeration of the lung bases although mild residual increased markings persist worse at the left lung base. All the support tubes are in good position. Electronically Signed: Vinny Mcghee MD at 15:14 EST , Physical Exam Narrative Constitutional Narrative: Patient is lightly sedated and on the ventilator HEENT head/scalp atraumatic Head and Scalp: normocephalic Eyes conjunctivae normal Neck no JVD Resp normal respiratory effort, no retractions, no use of accessory muscles and clear to auscultation bilaterally Cardio regular rate, regular rhythm, S1 normal heart sound, S2 normal heart sound, no murmurs and no rub GI normal to inspection, nondistended, normoactive bowel sounds and non-distended Extremity normal to inspection Neuro Neuro Narrative: Patient is sedated on the ventilator Psych Psych Narrative: Patient is lightly sedated and on the ventilator Assessment & Plan Assessment/Plan (1) Altered mental status: PLAN: Plan 1.? Acute on chronic hypoxic respiratory failure-exact etiology unclear at this point, pulmonary medicine is managing vent #2 acute encephalopathy-possibly secondary to postictal versus toxic, supportive care will be given, patient is now on the ventilator again and is under? s edation #3 seizure disorder-etiology unclear at this point, patient is on antiseizure medications #4 coronary artery disease-patient appears stable at this time #5 chronic obstructive pulmonary disease-patient is stable at this time #6 anemia-etiology unclear-appears to be iron deficiency, labs will be monitored, patient does not require a blood transfusion at this time, I will give the patient Venofir #7 hypokalemia-resolved at this time #8 cerebrovascular disease-patient has a history of strokes in the past and she also had a history of a hemorrhagic CVA requiring transfer to [facility] in January 2022, MRI did not show any recent strokes #9 severe chronic protein and caloric malnutrition-nutritional services is seeing patient, this is a result of weight loss of 23.6 pounds over 9 months, m oderate muscle fat loss and orbital, temporal, clavicular area, and acromion area per physical exam-patient is receiving tube feedings at the direction of nutritional services at this time #10 multifactorial shock-patient is hypotensive today and is on IV pressors, exact etiology is unclear #11 acute cystitis secondary to E. coli-patient completed a 7-day course of antibiotics Total clinical time spent by myself addressing patient's medical issues, reviewing all the data,and collaborating with the patient's care team 36 minutes Charges/Coding Visit Charges Inpatient E&M: 29024 Subs Hosp L2
[2022-07-07] MEDS: Acetaminophen 650 MG/20 ML UDC GT (20:51)
[2022-07-07] MEDS: Vital AF 1.2 Cal Liquid 1,000 ML 55 ML GT (20:55)
[2022-07-08] VITALS (52 sets, daily range): BP systolic 86–128; BP diastolic 38–76; PULSE 72–118; RESP 13–24; TEMP 37.4–38.1; O2SAT 88–99
[2022-07-08] MEDS: Dexmedetomidine 1,000 mcg in 0.9% NS 240 mL 26.2 MCG CONT INF (00:22)
[2022-07-08] MEDS: Ipratropium/Albuterol Sulfate 3 ML AMPUL.NEB INHALATION ×4 (01:57→19:15)
[2022-07-08 03:47] LABS: Absolute Lymphocyte Count 2.31 X10^3/uL (0.83-4.51); Absolute Neutrophil Count 8.4 X10^3/uL (2.0-7.7); Basophil# 0.07 X10^3/uL; Basophil% 0.6 % (0-1); Eosinophil# 0.03 X10^3/uL; Eosinophils% 0.2 % (0-5); Hematocrit 28.3 % (37-47); Hemoglobin 8.6 g/dL (12.0-15.0); Lymphocyte # 2.31 X10^3/ul (0.83-4.51); Lymphocyte % 18.7 % (19-41); Mean Corp Hgb Conc 30.4 g/dL (32-36); Mean Corpuscular Hgb 27.1 pg (27.0-32.0); Mean Corpuscular Volume 89.3 fL (81-99); Mean Platelet Vol. 10.2 fl (6.2-12.0); Monocyte# 1.31 X10^3/uL; Monocyte% 10.6 % (0-10); NRBC Flagged by Analyzer 0.2 % (0-5); Neutrophil # 8.43 X10^3/uL (2.7-7.7); Platelet Count 297 K/mm3 (150-450); RBC Distribution Width SD 58.2 fl (35.1-43.9); Red Blood Count 3.17 M/mm3 (4.2-5.4); White Blood Count 12.4 K/mm3 (4.4-11.0)
[2022-07-08 03:58] LABS: Anion Gap 5 (5-15); BUN 23 mg/dL (7-18); BUN/Creat Ratio 32.5 RATIO (10-20); Calcium,Total 8.2 mg/dL (8.5-10.1); Chloride 107 mmol/L (98-107); Creatinine, Serum 0.71 mg/dL (0.55-1.02); EST Glomerular Filtration Rate 87 mL/min (>60); Est Glom Filt Rate - Afr Amer 106 mL/min (>60); Estimated Creatinine Clearance 45.16 ml/min; Glucose 121 mg/dL (74-106); Potassium 3.5 mmol/L (3.5-5.1); Sodium Level 144 mmol/L (136-145)
--- NOTE | 2022-07-08 04:30 | NURSING ---
Fentanyl decreased from 100mcg to 50mcg for SAT/SBT.
[2022-07-08] MEDS: 0.9% Saline Lock 10 ML Syringe IV (05:00)
[2022-07-08] MEDS: CHLORHEXIDINE GLUC 2% CLOTH 1 EACH TOWELETTE TOPICAL (05:01)
[2022-07-08] MEDS: Furosemide 40 MG/4 ML Vial IV ×3 (05:01→22:22)
[2022-07-08] MEDS: Hydrocortisone Sod Succinate 100 MG/2 ML Vial IV ×3 (05:01→22:24)
[2022-07-08] MEDS: TITRATION PARAMETER CHANGE 1 EACH IV (05:01)
[2022-07-08] MEDS: Phenytoin Na 100 MG/2 ML Vial IV ×3 (05:01→22:23)
--- NOTE | 2022-07-08 07:00 | PN.CC_ITS ---
Assessment & Plan Assessment/Plan (1) Acute and chronic respiratory failure with hypercapnia: PLAN: Plan RECOMMENDATIONS: 1. Continue assist-control mode of mechanical ventilation. Wean FiO2/PEEP for saturations greater than 90%. 2. Hold tube feeds pending family discussion. 3. Continue antiepileptics, along with seizure precautions. 4. Continue diuresis. Continue stress dose steroids. 5. Electrolyte repletion as indicated 6. Continue scheduled bronchodilators and antimicrobials. 7. Continue appropriate ICU prophylaxis. 8. Family discussion to discuss goals of therapy IMPRESSIONS: 1. Acute on chronic combined respiratory failure The patient has known end-stage COPD and chronic hypoxemic respiratory failure, along with baseline CO2 retention. She has questionable compliance with her outpatient noninvasive ventilator. I do suspect that her acute respiratory decompensation may have been triggered by a postictal state and/or polypharmacy effects. The patient actually improved from a respiratory perspective and was extubated on July 02. However, she apparently decompensated overnight after receiving a one-time dose of Vistaril. Potential etiologies for her decompensation overnight include medication induced respiratory depression versus seizures and subsequent postictal state. The patient was reintubated on July 03. FiO2 will be weaned for saturations greater than 90%. Patient appears to be medically optimized at this time. Patient has been on steroids for 5 days and still has no leak. Will discuss with daughter about plan of care. Can attempt extubation, but if reintubated patient is on day 10 of ventilation and will require a tracheostomy. Alternative would be to provide palliative measures. Patient is on significant Precedex and likely cannot make decision independently. 2. Encephalopathy Improving. Likely metabolic in the setting of CO2 retention and/or related to postictal state in the setting of new onset seizure activity. In addition, there is some question as to whether possible polypharmacy may have also been contributing, as the patient was positive for benzodiazepines and opiates on her toxicology screen. Plan to continue current antiepileptics along with seizure precautions and as needed Ativan. Patient appears to be more appropriate 3. Multifactorial shock/relative adrenal insufficiency Resolved. The patient initially developed hypotension as a consequence of sedative medication use. Therefore, her hemodynamic instability may be the consequence of the propofol and fentanyl currently being utilized to keep her comfortable while intubated. Alternatively, sepsis related to gram-negative UTI is likely also contributing. Repeat cultures have been unrevealing. Patient rapidly improved on pressor requirements after initiation of stress dose steroids indicating relative adrenal insufficiency. 4. E. coli UTI Completed course of antibiotics. 5. History of end-stage COPD/chronic hypoxemic respiratory failure/obstru ctive sleep apnea/frequent COPD exacerbations The patient has a known history of end-stage COPD with questionable outpatient medical compliance. The patient has had compliance issues in the past related to her supplemental oxygen use and noninvasive ventilator utilization. She will be maintained on scheduled bronchodilators for now. Management as noted above. 6. History of hemorrhagic CVA/former tobacco dependency/history of cardiomyopathy/anxiety/depression Complicates care, management, recovery and prognosis. Okay to continue tube feeds today from my perspective. Replete potassium as indicated. See orders. Addendum 10:07 AM: Long discussion with family at the bedside. Patient's sister, 2 brothers and daughter were present. Family was made aware of the current situation. Patient has been on steroids for 5 days and continues to not have a leak. Did discuss multiple approaches including immediate trach and PEG, extubation with possible reintubation and trach and PEG and palliative measures. Family wants the safest option moving forward. After review of the risks, benefits and alternatives, they have asked to go to a trach and PEG. Patient will likely need an ENT evaluation anyway to evaluate for obstruction. They understand that this could mean lifelong mechanical ventilation versus lifelong tracheostomy versus decannulation. Family had questions on whether the patient could go to [place] as she has had a good experience there previously. Entire discussion was reviewed with hospitalist. Hospitalist will arrange for consults to ENT and surgery for trach and PEG. TIME: 78 minutes of critical care time, independent of procedures, was spent a ddressing the patient's acute on chronic combined respiratory failure, encephalopathy, multifactorial shock, review of all data and collaboration with the care team. Subjective Subjective Patient did well overnight. No acute issues were reported outside of a mild fever. Patient was able to tolerate a spontaneous breathing trial for over an hour this morning. However, patient did not have a leak, so support was reiniti ated. Patient's daughter has been contacted and asked to come in to help decide goals of therapy. Objective Data Objective Data Vital Signs: Vital Signs Temp Pulse Resp BP Pulse Ox O2 Del Method O2 Flow Rate 37.9 C H 94 17 123/63 H 93 Mechanical Ventilator 4 07/08/22 06:00 07/08/22 06:00 07/08/22 06:00 07/08/22 06:00 07/08/22 06:00 07/08/22 06:00 07/03/22 01:15 FiO2 35 07/08/22 06:00 Oxygen Flow Rate (L/min) 4 Oxygen Delivery Method Mechanical Ventilator Weight: 68 kg Body Mass Index (BMI) 22.9 Intake & Output: Intake and Output for Last 24 Hours 07/06/22 07/07/22 07/08/22 23:59 23:59 23:59 Intake Total 2847.90 / 2996.00 3410.57 / 3474.97 787.88 / 787.88 Output Total 3275 / 3525 4100 / 5050 1750 / 1750 Balance -427.10 / -529.00 -689.43 / -1575.03 -962.12 / -962.12 Medical Nutrition Assessment Dietitian: Malnutrition Criteria Met Start: 06/30/22 10:32 Freq: Status: Active Protocol: Document 07/07/22 10:20 AG (Rec: 07/07/22 10:43 AG [id number]) Nutrition Malnutrition Evidence of Malnutrition Exists Yes Malnutrition (severe): Chronic Evidenced By Weight Loss (Severe),Physical Changes (Moderate) Clinical Problem Chronic Disease or Condition Related Malnutrition Etiology severe, chronic malnutrition related to predicted inadequate oral intake Signs/Symptoms as evidenced by wt loss of 23. 6#/14% x 9 months, moderate muscle wasting/fat loss in orbital, temporal, clavicle, and acromion areas per physical exam Status Active Problem Recommendation Dietitian Recommendations/Changes NPO while intubated; Continue TF support via OGT- Vital AF 1 .2 at goal rate of 55mL/hour w / 100mL H2O flush every 4 hours to provide 1584 calories , 99 g protein, and 1670mL total fluid/day. Lab / Micro Data Attestation: I reviewed the patient's lab results. Result Diagrams: 07/08/22 03:40 07/08/22 03:40 Labs: Laboratory Results - last 24 hr 07/04/22 03:40: Diff Path Review Reviewed 07/08/22 03:40: WBC 12.4 H, RBC 3.17 L, Hgb 8.6 L, Hct 28.3 L, MCV 89.3, MCH 27.1, MCHC 30.4 L, RDW Std Deviation 58.2 H, RDW Coeff of Deonte 18.0 H, Plt Count 297, MPV 10.2, Immature Gran % (Auto) 1.900 H, Neut % (Auto) 68.0, Lymph % (Auto) 18.7 L, Isabella % (Auto) 10.6 H, Eos % (Auto) 0.2, Baso % (Auto) 0.6, Abs olute Neuts (auto) 8.4 H, Absolute Lymphs (auto) 2.31, Nucleated RBC % 0.2 07/08/22 03:40: Sodium 144, Potassium 3.5, Chloride 107, Carbon Dioxide 32.0, Anion Gap 5, BUN 23 H, Creatinine 0.71, Estim Creat Clear Calc 45.16, Est GFR (MDRD) Af Amer 106, Est GFR (MDRD) Non-Af 87, BUN/Creatinine Ratio 32.5 H, Gl ucose 121 H, Calcium 8.2 L Micro: Microbiology 07/03/22 03:10 Sputum, Induced/Lukens Gram Stain - Final 07/03/22 03:10 Sputum, Induced/Lukens Respiratory Culture - Final Culture exhibits no growth. 06/29/22 23:15 Blood Culture (Wb) - Anticubital Right Blood Culture - Final No growth in 5 days. 06/29/22 22:48 Blood Culture (Wb) - Anticubital Right Blood Culture - Final No growth in 5 days. 06/30/22 02:25 Sputum, Tracheal Aspirate Gram Stain - Final 06/30/22 02:25 Sputum, Tracheal Aspirate Respiratory Culture - Final 06/29/22 23:25 Urine Catheter - Fortune Urine Culture - Final Escherichia coli 06/30/22 02:35 Mucosa - Nasopharyngeal Respiratory Panel (PCR) - Final 06/29/22 23:30 Nasal Secretion SARS-CoV-2 & FLU Antigen (Rapid) - Final ABG Data ABG results: ABG 07/07/22 07:29 Specimen Type ART Sample Site R Radial pH 7.45 Bicarbonate Actual 30.5 H Total CO2 32 Base Excess 7 H O2 Saturation 93 L O2 % 40 ABG pCO2 44.2 ABG pO2 65 L Royal Test Positive O2 Delivery Device CPAP POC PEEP 5 POC Pressure Suppt 5 Attestation: I personally reviewed and interpreted this ABG as follows: (Chronic metabolic alkalosis with partial respiratory compensation and increased AA grad ient. Appears venous) Radiography Diagnostic Testing: Radiology Impression Chest X-Ray 07/07/22 14:40 IMPRESSION: Improved aeration of the lung bases although mild residual increased markings persist worse at the left lung base. All the support tubes are in good position. Electronically Signed: Vinny Mcghee MD at 15:14 EST , Physical Exam Const alert Constitutional Narrative: Anasarca noted. RASS +1. Slightly diaphoretic. General Appearance: intubated and patient mechanically ventilated HEENT normocephalic and head/scalp atraumatic HEENT Narrative: No leak noted following spontaneous breathing trial Mouth: endotracheal tube in place and OG tube in place Eyes PERRL and EOMs intact bilaterally Eyes Narrative: Does track and shake head appropriately Neck supple General: trachea midline Chest Chest Narrative: Increased AP diameter Resp Auscultation: diminished lung sounds; Negative for rales, rhonchi or wheezes Cardio regular rate, regular rhythm, S1 normal heart sound, S2 normal heart sound, no murmurs, no rub and no gallops GI normal to inspection, nondistended, normoactive bowel sounds Extremity no clubbing, cyanosis or edema Extremity Narrative: 2+ anasarca noted General Extremity: edema bilateral (Improved.) Skin no rashes or lesions noted Neuro Neuro Narrative: Alert and able to follow simple commands. Sensorium / Orientation: sedated on vent Psych Activity / Motor Behavior: restless Mood & Affect: anxious Charges/Coding Procedures Hospitalists Procedures: 01592 Critial Care 1st Hr Multi Select Codes Hospitalists' Procedures Procedures: 73963 Critial Care Addl 30 Min
[2022-07-08] MEDS: Bisacodyl 10 MG Suppository RC (09:19)
[2022-07-08] MEDS: Famotidine 200 MG/20 ML MDV 20 MG in 0.9% Normal Saline (Pres. free 8 ML 300 MG IV ×2 (10:07→22:26)
[2022-07-08] MEDS: Chlorhexidine 15 ML PO ×2 (10:07→22:22)
[2022-07-08] MEDS: Propofol 10MG/Ml 1,000 MG/100 ML Bottle 16.3 MG CONT INF ×3 (10:11→22:36)
[2022-07-08] MEDS: Potassium Chloride Oral Soln 20 MEQ/15 ML UDC 40 MEQ PO ×2 (10:18→22:22)
[2022-07-08] MEDS: Polyethylene Glycol 3350 17 GM PACKET GT ×2 (10:18→22:23)
[2022-07-08] MEDS: Enoxaparin 40 MG/0.4 ML Syringe SC (10:18)
[2022-07-08] MEDS: Senna/Docusate Sodium 1 Tablet 2 TABLET GT ×2 (10:18→22:23)
[2022-07-08] MEDS: Dexmedetomidine 1,000 mcg in 0.9% NS 240 mL 25.5 MCG CONT INF ×2 (11:22→21:15)
--- NOTE | 2022-07-08 17:08 | EX.PCM.CON.G ---
HPI Consult Data Date of Consult: 07/08/22 HPI Narrative Reason for Consultation: PEG placement HPI Narrative: MARCO MAY, is a 66-year-old female, with a history of end-stage COPD who presented to the emergency department via EMS on June 29 with altered mentation and shortness of breath. The patient has a known history of end-stage COPD, chronic hypoxemic respiratory failure with a baseline 2 L/min requirement and nicotine dependency, in remission.? On presentation to the emergency department, the patient was noted to be afebrile but was tachycardic and tachypneic with tenuous hemodynamics.? Initial laboratory evaluation revealed no evidence of a leukocytosis.? Chemistry profile was notable for a chronically elevated bicarbonate of 39.? Lactate was within normal limits.? AST and ALT were increased at 130 and 64, respectively.? Urine analysis was positive for leukocyte Estrace and 3+ urine bacteria.? Toxicology screen was positive for opiates and benzodiazepines.? CT head demonstrated no acute intracranial process.? Initial chest x-ray was clear.? In the emergency department, the patient received supplemental IV fluid hydration along with IV Ativan and Keppra over concerns for possible seizure activity.? The patient was also initiated on antimicrobials.? She was subsequently admitted to the medical intensive care unit for further management. The patient's mentation decompensated and there was concern over the patient's ability to maintain her airway.? Therefore, she was emergently intubated.? Shortly after intubation, the patient developed hypotension, requiring Levophed initiation.? In addition, she apparently developed seizure-like activity and was treated with IV Ativan as well as a propofol bolus. She has been intubated and sedated for several days and the family has agreed to a tracheostomy and PEG tube placement. I was consulted to place a PEG tube. [facility] Medical History Alcohol abuse Anxiety Anxiety and depression Chronic anemia Chronic systolic (congestive) heart failure CO2 narcosis Congestive heart failure (CHF) COPD (chronic obstructive pulmonary disease) Daytime hypersomnia Essential (primary) hypertension Fall GERD (gastroesophageal reflux disease) Head concussion Hemorrhagic cerebrovascular accident (CVA) (02/09/17) History of DVT of lower extremity (02/11/17) History of non-ST elevation myocardial infarction (NSTEMI) (02/03/17) Hypercarbia Hyperlipidemia Insomnia Ischemic cerebrovascular accident (CVA) (02/06/17) Non-ischemic cardiomyopathy Non-rheumatic mitral regurgitation TIO (obstructive sleep apnea) Respiratory insufficiency Secondary pulmonary arterial hypertension Stroke Takotsubo cardiomyopathy (06/17/21) TIA (transient ischemic attack) (10/25/19) Weakness due to old stroke Home Medications aspirin 81 mg tablet 81 mg PO DAILY heart health 11/03/20 [History Last Taken Unknown] cholecalciferol (vitamin D3) 25 mcg (1,000 unit) tablet (Vitamin D3) 25 mcg PO DAILY supplement 11/03/20 [History Last Taken Unknown] duloxetine 60 mg capsule,delayed release 60 mg PO DAILY depression 11/03/20 [History Last Taken Unknown] folic acid 1 mg tablet 1 mg PO DAILY supplement 11/03/20 [History Last Taken Unknown] pantoprazole 40 mg tablet,delayed release (Protonix) 40 mg PO DAILY GERD 11/03/20 [History Last Taken Unknown] potassium chloride 20 mEq tablet,extended release 20 meq PO DAILY supplement 11/03/20 [History Last Taken Unknown] ropinirole 0.5 mg tablet 0.5 mg PO QHS RLS 11/03/20 [History Last Taken Unknown] spironolactone 25 mg tablet 12.5 mg PO DAILY BP 11/03/20 [History Last Taken Unknown] albuterol sulfate 90 mcg/actuation aerosol inhaler (Ventolin HFA) 2 puff inhalation Q4H PRN shortness of breath or wheezing #18 grams 12/23/20 [Rx Last Taken Unknown] albuterol sulfate 1.25 mg/3 mL solution for nebulization 1.25 mg inhalation Q4H PRN Shortness Of Breath Or Wheezing 06/15/21 [History Last Taken Unknown] escitalopram oxalate 10 mg tablet (Lexapro) 10 mg PO DAILY 07/07/21 [History Last Taken Unknown] mecobalamin (vitamin B12) 5,000 mcg disintegrating tablet 5,000 mcg PO DAILY 07/07/21 [History Last Taken Unknown] losartan 25 mg tablet 25 mg PO DAILY 12/02/21 [History Last Taken Unknown] zolpidem 10 mg tablet 10 mg PO QHS PRN Sleep 12/02/21 [History Last Taken Unknown] hydroxyzine pamoate 25 mg capsule (Vistaril) 25 mg PO BID PRN itching #20 caps 12/06/21 [Rx Last Taken Unknown] prednisone 20 mg tablet 60 mg PO DAILY #15 TABLETS 02/26/22 [Rx Last Taken Unknown] hydrocodone-acetaminophen 5-325mg 5mg-325mg 1 tab PO Q4H PRN PRN Pain 2 days #10 TABLETS 03/19/22 [Rx Last Taken Unknown] cephalexin 500 mg capsule 500 mg PO Q8H #30 caps 03/20/22 [Rx Last Taken Unknown] fluticasone fur. 100 mcg-umeclid 62.5 mcg-vilant 25 mcg inhalat.powder 1 inh inhalation DAILY COPD #60 ea 04/14/22 [Rx Last Taken Unknown] Allergy/AdvReac Type Severity Reaction Status Date / Time tetanus and diphtheria Allergy Hives Verified 06/29/22 22:19 toxoids [tetanus & diphtheria toxoids] Family History Sister Cancer lung Father Cancer lung Mother Cancer lung Surgical History H/O: section History of bilateral cataract extraction History of cholecystectomy History of left heart catheterization (06/17/21) History of lumpectomy Hx of appendectomy Social History household members: none Smoking Status: Former smoker how long ago did patient quit smokin, 1pk/day second hand exposure: Yes alcohol intake: former substance use type: does not use what type of physical activity do you participate in: walking frequency: daily ROS Review of Systems ROS Unobtainable: due to endotracheal tube and due to mental status Physical Exam Const alert Constitutional Narrative: Anasarca noted. RASS +1. Slightly diaphoretic. General Appearance: intubated and patient mechanically ventilated HEENT normocephalic and head/scalp atraumatic HEENT Narrative: No leak noted following spontaneous breathing trial Mouth: endotracheal tube in place and OG tube in place Eyes PERRL and EOMs intact bilaterally Eyes Narrative: Does track and shake head appropriately Neck supple General: trachea midline Chest Chest Narrative: Increased AP diameter Resp Auscultation: diminished lung sounds; Negative for rales, rhonchi or wheezes Cardio regular rate, regular rhythm, S1 normal heart sound, S2 normal heart sound, no murmurs, no rub and no gallops GI normal to inspection, nondistended, normoactive bowel sounds Extremity no clubbing, cyanosis or edema Extremity Narrative: 2+ anasarca noted General Extremity: edema bilateral (Improved.) Skin no rashes or lesions noted Neuro Neuro Narrative: Alert and able to follow simple commands. Sensorium / Orientation: sedated on vent Psych Activity / Motor Behavior: restless Mood & Affect: anxious Medical Records Data Medical Nutrition Assessment Dietitian: Malnutrition Criteria Met Start: 06/30/22 10:32 Freq: Status: Active Protocol: Document 07/07/22 10:20 AG (Rec: 07/07/22 10:43 AG [id number]) Nutrition Malnutrition Evidence of Malnutrition Exists Yes Malnutrition (severe): Chronic Evidenced By Weight Loss (Severe),Physical Changes (Moderate) Clinical Problem Chronic Disease or Condition Related Malnutrition Etiology severe, chronic malnutrition related to predicted inadequate oral intake Signs/Symptoms as evidenced by wt loss of 23. 6#/14% x 9 months, moderate muscle wasting/fat loss in orbital, temporal, clavicle, and acromion areas per physical exam Status Active Problem Recommendation Dietitian Recommendations/Changes NPO while intubated; Continue TF support via OGT- Vital AF 1 .2 at goal rate of 55mL/hour w / 100mL H2O flush every 4 hours to provide 1584 calories , 99 g protein, and 1670mL total fluid/day. Lab / Micro Data Result Diagrams: 07/08/22 03:40 07/08/22 03:40 Labs: Laboratory Results - last 24 hr 07/08/22 03:40: WBC 12.4 H, RBC 3.17 L, Hgb 8.6 L, Hct 28.3 L, MCV 89.3, MCH 27.1, MCHC 30.4 L, RDW Std Deviation 58.2 H, RDW Coeff of Deonte 18.0 H, Plt Count 297, MPV 10.2, Immature Gran % (Auto) 1.900 H, Neut % (Auto) 68.0, Lymph % (Auto) 18.7 L, [place] % (Auto) 10.6 H, Eos % (Auto) 0.2, Baso % (Auto) 0.6, Absolute Neuts (auto) 8.4 H, Absolute Lymphs (auto) 2.31, Nucleated RBC % 0.2 07/08/22 03:40: Sodium 144, Potassium 3.5, Chloride 107, Carbon Dioxide 32.0, Anion Gap 5, BUN 23 H, Creatinine 0.71, Estim Creat Clear Calc 45.16, Est GFR (MDRD) Af Amer 106, Est GFR (MDRD) Non-Af 87, BUN/Creatinine Ratio 32.5 H, Glucose 121 H, Calcium 8.2 L Assessment & Plan Assessment/Plan (1) S/P percutaneous endoscopic gastrostomy (PEG) tube placement: PLAN: The family has agreed to have her place a PEG tube. This would be good so she can decrease her risk of infection from OG tube. This does not have to be a permanent tube. Hopefully would only be temporary. Her family was explained alternatives, risk, benefits including outstanding bleeding, infection, sepsis, perforation, need for discharge and . She would have an ASA of 3 For the procedure. Charges/Coding Visit Charges Inpatient E&M: 36576 Init Hosp L2
--- NOTE | 2022-07-08 18:27 | PN.HOSP_ITS ---
Subjective Subjective She was seen and examined today, critical care had a long conversation with the patient's POA and the patient's POA wants continued aggressive treatment, critical care is recommended that she have a PEG and trach inserted and the family agrees to it. I contacted Dr. Mancilla and Dr. Elizabeth to do a trach and a PEG respectively-this will probably be done on Wednesday however. Patient remains on the ventilator at this time on light sedation. Objective Data Objective Data Vital Signs: Vital Signs Temp Pulse Resp BP Pulse Ox O2 Del Method O2 Flow Rate 100.1 F H 73 14 117/58 L 98 Mechanical Ventilator 4 07/08/22 18:00 07/08/22 18:00 07/08/22 18:00 07/08/22 18:00 07/08/22 18:00 07/08/22 18:00 07/03/22 01:15 FiO2 40 07/08/22 18:00 Oxygen Flow Rate (L/min) 4 Oxygen Delivery Method Mechanical Ventilator Weight: 68 kg Body Mass Index (BMI) 22.9 Intake & Output: Intake and Output for Last 24 Hours 07/06/22 07/07/22 07/08/22 23:59 23:59 23:59 Intake Total 2847.90 / 2996.00 3410.57 / 3474.97 2653.50 / 2653.50 Output Total 3275 / 3525 4100 / 5050 4950 / 4950 Balance -427.10 / -529.00 -689.43 / -1575.03 -2296.50 / -2296.50 Medical Nutrition Assessment Dietitian: Malnutrition Criteria Met Start: 06/30/22 10:32 Freq: Status: Active Protocol: Document 07/07/22 10:20 AG (Rec: 07/07/22 10:43 AG [id number]) Nutrition Malnutrition Evidence of Malnutrition Exists Yes Malnutrition (severe): Chronic Evidenced By Weight Loss (Severe),Physical Changes (Moderate) Clinical Problem Chronic Disease or Condition Related Malnutrition Etiology severe, chronic malnutrition related to predicted inadequate oral intake Signs/Symptoms as evidenced by wt loss of 23. 6#/14% x 9 months, moderate muscle wasting/fat loss in orbital, temporal, clavicle, and acromion areas per physical exam Status Active Problem Recommendation Dietitian Recommendations/Changes NPO while intubated; Continue TF support via OGT- Vital AF 1 .2 at goal rate of 55mL/hour w / 100mL H2O flush every 4 hours to provide 1584 calories , 99 g protein, and 1670mL total fluid/day. Lab / Micro Data Result Diagrams: 07/08/22 03:40 07/08/22 03:40 Labs: Laboratory Results - last 24 hr 07/08/22 03:40: WBC 12.4 H, RBC 3.17 L, Hgb 8.6 L, Hct 28.3 L, MCV 89.3, MCH 27.1, MCHC 30.4 L, RDW Std Deviation 58.2 H, RDW Coeff of Deonte 18.0 H, Plt Count 297, MPV 10.2, Immature Gran % (Auto) 1.900 H, Neut % (Auto) 68.0, Lymph % (Auto) 18.7 L, [place] % (Auto) 10.6 H, Eos % (Auto) 0.2, Baso % (Auto) 0.6, Absolute Neuts (auto) 8.4 H, Absolute Lymphs (auto) 2.31, Nucleated RBC % 0.2 07/08/22 03:40: Sodium 144, Potassium 3.5, Chloride 107, Carbon Dioxide 32.0, Anion Gap 5, BUN 23 H, Creatinine 0.71, Estim Creat Clear Calc 45.16, Est GFR (MDRD) Af Amer 106, Est GFR (MDRD) Non-Af 87, BUN/Creatinine Ratio 32.5 H, Glucose 121 H, Calcium 8.2 L Micro: Microbiology 07/03/22 03:10 Sputum, Induced/Lukens Gram Stain - Final 07/03/22 03:10 Sputum, Induced/Lukens Respiratory Culture - Final Culture exhibits no growth. 06/29/22 23:15 Blood Culture (Wb) - Anticubital Right Blood Culture - Final No growth in 5 days. 06/29/22 22:48 Blood Culture (Wb) - Anticubital Right Blood Culture - Final No growth in 5 days. 06/30/22 02:25 Sputum, Tracheal Aspirate Gram Stain - Final 06/30/22 02:25 Sputum, Tracheal Aspirate Respiratory Culture - Final 06/29/22 23:25 Urine Catheter - Fortune Urine Culture - Final Escherichia coli 06/30/22 02:35 Mucosa - Nasopharyngeal Respiratory Panel (PCR) - Final 06/29/22 23:30 Nasal Secretion SARS-CoV-2 & FLU Antigen (Rapid) - Final Physical Exam Narrative Constitutional Narrative: Patient is lightly sedated and on the ventilator HEENT head/scalp atraumatic Head and Scalp: normocephalic Eyes conjunctivae normal Neck no JVD Resp normal respiratory effort, no retractions, no use of accessory muscles and clear to auscultation bilaterally Cardio regular rate, regular rhythm, S1 normal heart sound, S2 normal heart sound, no murmurs and no rub GI normal to inspection, nondistended, normoactive bowel sounds and non-distended Extremity normal to inspection Neuro Neuro Narrative: Patient is sedated on the ventilator Psych Psych Narrative: Patient is lightly sedated and on the ventilator Assessment & Plan Assessment/Plan (1) Altered mental status: PLAN: Plan 1.? Acute on chronic hypoxic respiratory failure-exact etiology unclear at this point, pulmonary medicine is managing vent #2 acute encephalopathy-possibly secondary to postictal versus toxic, supportive care will be given, patient is now on the ventilator again and is under? sedation #3 seizure disorder-etiology unclear at this point, patient is on antiseizure medications #4 coronary artery disease-patient appears stable at this time #5 chronic obstructive pulmonary disease-patient is stable at this time #6 anemia-etiology unclear, patient's hemoglobin today was 8.6-appears to be iron deficiency, labs will be monitored, patient does not require a blood transfusion at this time, I will give the patient Venofir again #7 hypokalemia-resolved at this time #8 cerebrovascular disease-patient has a history of strokes in the past and she also had a history of a hemorrhagic CVA requiring transfer to [facility] in January 2022, MRI did not show any recent strokes #9 severe chronic protein and caloric malnutrition-nutritional services is seeing patient, this is a result of weight loss of 23.6 pounds over 9 months, moderate muscle fat loss and orbital, temporal, clavicular area, and acromion area per physical exam-patient is receiving tube feedings at the direction of nutritional services at this time #10 multifactorial shock-patient is hypotensive today and is on IV pressors, exact etiology is unclear #11 acute cystitis secondary to E. coli-patient completed a 7-day course of antibiotics Total clinical time spent by myself addressing patient's medical issues, reviewing all the data,and collaborating with the patient's care team 35 minutes Charges/Coding Visit Charges Inpatient E&M: 19527 Subs Hosp L2
[2022-07-08] MEDS: Vital AF 1.2 Cal Liquid 1,000 ML 55 ML GT (20:21)
[2022-07-09] VITALS (49 sets, daily range): BP systolic 95–125; BP diastolic 41–61; PULSE 70–99; RESP 14–27; TEMP 37.7–38.1; O2SAT 91–97
[2022-07-09] MEDS: Ipratropium/Albuterol Sulfate 3 ML AMPUL.NEB INHALATION ×4 (02:11→18:49)
[2022-07-09] MEDS: Bisacodyl 10 MG Suppository RC (02:22)
[2022-07-09 04:24] LABS: Absolute Neutrophil Count 11.2 X10^3/uL (2.0-7.7); Basophil# 0.07 X10^3/uL; Basophil% 0.5 % (0-1); Eosinophil# 0.04 X10^3/uL; Eosinophils% 0.3 % (0-5); Hematocrit 29.7 % (37-47); Hemoglobin 9.1 g/dL (12.0-15.0); Lymphocyte % 14.9 % (19-41); Mean Corp Hgb Conc 30.6 g/dL (32-36); Mean Corpuscular Hgb 27.3 pg (27.0-32.0); Mean Corpuscular Volume 89.2 fL (81-99); Mean Platelet Vol. 10.3 fl (6.2-12.0); Monocyte# 1.57 X10^3/uL; Monocyte% 10.2 % (0-10); NRBC Flagged by Analyzer 0 % (0-5); Neutrophil # 11.15 X10^3/uL (2.7-7.7); Neutrophil % 72.2 % (47-70); POSITIVE DIFFERENTIAL YES; Platelet Count 381 K/mm3 (150-450); RBC Distribution Width CV 17.9 % (11.6-14.6); RBC Distribution Width SD 57.3 fl (35.1-43.9); Red Blood Count 3.33 M/mm3 (4.2-5.4); White Blood Count 15.4 K/mm3 (4.4-11.0)
[2022-07-09 04:27] LABS: Differential Indicated SCAN CRITERIA MET
[2022-07-09 04:38] LABS: Anion Gap 4 (5-15); BUN 24 mg/dL (7-18); BUN/Creat Ratio 37.4 RATIO (10-20); Calcium,Total 8.2 mg/dL (8.5-10.1); Chloride 106 mmol/L (98-107); Creatinine, Serum 0.64 mg/dL (0.55-1.02); EST Glomerular Filtration Rate 98 mL/min (>60); Est Glom Filt Rate - Afr Amer 118 mL/min (>60); Estimated Creatinine Clearance 45.16 ml/min; Glucose 145 mg/dL (74-106); Potassium 3.6 mmol/L (3.5-5.1); Sodium Level 145 mmol/L (136-145)
[2022-07-09 04:39] LABS: International Normalized Ratio 1.2; Prothrombin Time (Protime)PT. 14.5 SECONDS (11.7-14.9)
[2022-07-09 04:40] LABS: Partial Thromboplast Time 28.3 Seconds (24.1-36.2)
[2022-07-09] MEDS: Propofol 10MG/Ml 1,000 MG/100 ML Bottle 16.3 MG CONT INF (04:45)
[2022-07-09 05:12] LABS: Differential Comment SCANNED
[2022-07-09] MEDS: CHLORHEXIDINE GLUC 2% CLOTH 1 EACH TOWELETTE TOPICAL (05:34)
[2022-07-09] MEDS: 0.9% Saline Lock 10 ML Syringe IV ×3 (05:34→22:58)
[2022-07-09] MEDS: Hydrocortisone Sod Succinate 100 MG/2 ML Vial IV ×3 (05:36→21:26)
[2022-07-09] MEDS: Furosemide 40 MG/4 ML Vial IV ×2 (05:36→17:48)
[2022-07-09] MEDS: Phenytoin Na 100 MG/2 ML Vial IV ×3 (05:36→21:25)
[2022-07-09] MEDS: Dexmedetomidine 1,000 mcg in 0.9% NS 240 mL 25.5 MCG CONT INF (06:57)
--- NOTE | 2022-07-09 08:21 | PCM.PN.INT ---
Assessment & Plan Assessment/Plan (1) Acute and chronic respiratory failure with hypercapnia: PLAN: Plan RECOMMENDATIONS: 1. Continue assist-control mode of mechanical ventilation. Wean FiO2/PEEP for saturations greater than 90%. 2. Hold tube feeds for procedures as necessary 3. Continue antiepileptics, along with seizure precautions. 4. Decrease diuresis. Continue stress dose steroids. 5. Electrolyte repletion as indicated 6. Continue scheduled bronchodilators and antimicrobials. 7. Continue appropriate ICU prophylaxis. 8. Prepare for trach and PEG IMPRESSIONS: 1. Acute on chronic combined respiratory failure The patient has known end-stage COPD and chronic hypoxemic respiratory failure, along with baseline CO2 retention. She has questionable compliance with her outpatient noninvasive ventilator. I do suspect that her acute respiratory decompensation may have been triggered by a postictal state and/or polypharmacy effects. The patient actually improved from a respiratory perspective and was extubated on July 02. However, she apparently decompensated overnight after receiving a one-time dose of Vistaril. Potential etiologies for her decompensation overnight include medication induced respiratory depression versus seizures and subsequent postictal state. The patient was reintubated on July 03. FiO2 will be weaned for saturations greater than 90%. Patient appears to be medically optimized at this time. Patient has been on steroids for 5 days and still has no leak. Family is electing for a trach and PEG. Patient is on minimal vent settings, so long-term mechanical ventilation may not be required, but exact etiology of the lack of leak is not clear. 2. Encephalopathy Improving. Likely metabolic in the setting of CO2 retention and/or related to postictal state in the setting of new onset seizure activity. In addition, there is some question as to whether possible polypharmacy may have also been contributing, as the patient was positive for benzodiazepines and opiates on her toxicology screen. Plan to continue current antiepileptics along with seizure precautions and as needed Ativan. Patient appears to be more appropriate 3. Multifactorial shock/relative adrenal insufficiency Resolved. The patient initially developed hypotension as a consequence of sedative medication use. Therefore, her hemodynamic instability may be the consequence of the propofol and fentanyl currently being utilized to keep her comfortable while intubated. Alternatively, sepsis related to gram-negative UTI is likely also contributing. Repeat cultures have been unrevealing. Patient rapidly improved on pressor requirements after initiation of stress dose steroids indicating relative adrenal insufficiency. 4. E. coli UTI Completed course of antibiotics. 5. History of end-stage COPD/chronic hypoxemic respiratory failure/obstructive sleep apnea/frequent COPD exacerbations The patient has a known history of end-stage COPD with questionable outpatient medical compliance. The patient has had compliance issues in the past related to her supplemental oxygen use and noninvasive ventilator utilization. She will be maintained on scheduled bronchodilators for now. Management as noted above. 6. History of hemorrhagic CVA/former tobacco dependency/history of cardiomyopathy/anxiety/depression Complicates care, management, recovery and prognosis. Okay to continue tube feeds today from my perspective. Replete potassium as indicated. See orders. TIME: 31 minutes of critical care time, independent of procedures, was spent addressing the patient's acute on chronic combined respiratory failure, encephalopathy, multifactorial shock, review of all data and collaboration with the care team. Subjective Subjective Patient did okay overnight. Patient did have a bowel movement noted. Patient has remained on Levophed to maintain pressures. Patient did have a slight fever overnight. Vent settings remain minimal. Objective Data Objective Data Vital Signs: Vital Signs Temp Pulse Resp BP Pulse Ox O2 Del Method O2 Flow Rate 37.8 C H 82 14 122/55 H 94 Mechanical Ventilator 4 07/09/22 07:00 07/09/22 07:40 07/09/22 07:40 07/09/22 07:00 07/09/22 07:38 07/09/22 03:42 07/03/22 01:15 FiO2 30 07/09/22 07:38 Oxygen Flow Rate (L/min) 4 Oxygen Delivery Method Mechanical Ventilator Weight: 66.1 kg Body Mass Index (BMI) 22.9 Intake & Output: Intake and Output for Last 24 Hours 07/07/22 07/08/22 07/09/22 23:59 23:59 23:59 Intake Total 3410.57 / 3474.97 3609.11 / 3784.01 1367.15 / 1367.15 Output Total 4100 / 5050 4950 / 5450 1800 / 1800 Balance -689.43 / -1575.03 -1340.89 / -1665.99 -432.85 / -432.85 Medical Nutrition Assessment Dietitian: Malnutrition Criteria Met Start: 06/30/22 10:32 Freq: Status: Active Protocol: Document 07/07/22 10:20 AG (Rec: 07/07/22 10:43 AG [id number]) Nutrition Malnutrition Evidence of Malnutrition Exists Yes Malnutrition (severe): Chronic Evidenced By Weight Loss (Severe),Physical Changes (Moderate) Clinical Problem Chronic Disease or Condition Related Malnutrition Etiology severe, chronic malnutrition related to predicted inadequate oral intake Signs/Symptoms as evidenced by wt loss of 23. 6#/14% x 9 months, moderate muscle wasting/fat loss in orbital, temporal, clavicle, and acromion areas per physical exam Status Active Problem Recommendation Dietitian Recommendations/Changes NPO while intubated; Continue TF support via OGT- Vital AF 1 .2 at goal rate of 55mL/hour w / 100mL H2O flush every 4 hours to provide 1584 calories , 99 g protein, and 1670mL total fluid/day. Lab / Micro Data Attestation: I reviewed the patient's lab results. Result Diagrams: 07/09/22 04:10 07/09/22 04:10 Labs: Laboratory Results - last 24 hr 07/09/22 04:10: WBC 15.4 H, RBC 3.33 L, Hgb 9.1 L, Hct 29.7 L, MCV 89.2, MCH 27.3, MCHC 30.6 L, RDW Std Deviation 57.3 H, RDW Coeff of Deonte 17.9 H, Plt Count 381, MPV 10.3, Immature Gran % (Auto) 1.900 H, Neut % (Auto) 72.2 H, Lymph % (Auto) 14.9 L, [place] % (Auto) 10.2 H, Eos % (Auto) 0.3, Baso % (Auto) 0.5, Absolute Neuts (auto) 11.2 H, Absolute Lymphs (auto) 2.30, Nucleated RBC % 0, Differential Comment SCANNED, Diff Path Review November foll 07/09/22 04:10: PT 14.5, INR 1.2, APTT 28.3 07/09/22 04:10: Sodium 145, Potassium 3.6, Chloride 106, Carbon Dioxide 35.0 H, Anion Gap 4 L, BUN 24 H, Creatinine 0.64, Estim Creat Clear Calc 45.16, Est GFR (MDRD) Af Amer 118, Est GFR (MDRD) Non-Af 98, BUN/Creatinine Ratio 37.4 H, Glucose 145 H, Calcium 8.2 L Micro: Microbiology 07/03/22 03:10 Sputum, Induced/Lukens Gram Stain - Final 07/03/22 03:10 Sputum, Induced/Lukens Respiratory Culture - Final Culture exhibits no growth. 06/29/22 23:15 Blood Culture (Wb) - Anticubital Right Blood Culture - Final No growth in 5 days. 06/29/22 22:48 Blood Culture (Wb) - Anticubital Right Blood Culture - Final No growth in 5 days. 06/30/22 02:25 Sputum, Tracheal Aspirate Gram Stain - Final 06/30/22 02:25 Sputum, Tracheal Aspirate Respiratory Culture - Final 06/29/22 23:25 Urine Catheter - Fortune Urine Culture - Final Escherichia coli 06/30/22 02:35 Mucosa - Nasopharyngeal Respiratory Panel (PCR) - Final 06/29/22 23:30 Nasal Secretion SARS-CoV-2 & FLU Antigen (Rapid) - Final Physical Exam Const alert Constitutional Narrative: Anasarca slowly improving. RASS -1. General Appearance: intubated and patient mechanically ventilated HEENT normocephalic and head/scalp atraumatic HEENT Narrative: No leak noted Mouth: endotracheal tube in place and OG tube in place Eyes PERRL and EOMs intact bilaterally Eyes Narrative: Does track and shake head appropriately Neck supple General: trachea midline Chest Chest Narrative: Increased AP diameter Resp Auscultation: diminished lung sounds; Negative for rales, rhonchi or wheezes Cardio regular rate, regular rhythm, S1 normal heart sound, S2 normal heart sound, no murmurs, no rub and no gallops GI normal to inspection, nondistended, normoactive bowel sounds Extremity no clubbing, cyanosis or edema Extremity Narrative: 2+ anasarca noted General Extremity: edema bilateral (Improved.) Skin no rashes or lesions noted Neuro Neuro Narrative: Alert and able to follow simple commands. Sensorium / Orientation: sedated on vent Psych Activity / Motor Behavior: restless Mood & Affect: anxious Charges/Coding Procedures Hospitalists Procedures: 06052 Critial Care 1st Hr
[2022-07-09] MEDS: Potassium Chloride Oral Soln 20 MEQ/15 ML UDC 40 MEQ PO ×2 (08:45→21:24)
[2022-07-09] MEDS: Chlorhexidine 15 ML PO ×2 (09:13→21:24)
--- NOTE | 2022-07-09 09:14 | PCM.PN.HOSP ---
Subjective Subjective Doing well, no issues overnight. She is still on Levophed but is alert her vent Objective Data Objective Data Vital Signs: Vital Signs Temp Pulse Resp BP Pulse Ox O2 Del Method O2 Flow Rate 100.1 F H 82 14 122/55 H 94 Mechanical Ventilator 4 07/09/22 07:00 07/09/22 07:40 07/09/22 07:40 07/09/22 07:00 07/09/22 07:38 07/09/22 07:50 07/03/22 01:15 FiO2 30 07/09/22 07:38 Oxygen Flow Rate (L/min) 4 Oxygen Delivery Method Mechanical Ventilator Weight: 145 lb 11.609 oz Body Mass Index (BMI) 22.9 Intake & Output: Intake and Output for Last 24 Hours 07/08/22 07/09/22 07/10/22 03:59 03:59 03:59 Intake Total 3684.05 / 3730.05 3766.98 / 3832.53 603.50 / 603.50 Output Total 4800 / 4800 4500 / 4500 1300 / 1300 Balance -1115.95 / -1069.95 -733.02 / -667.47 -696.50 / -696.50 Medical Nutrition Assessment Dietitian: Malnutrition Criteria Met Start: 06/30/22 10:32 Freq: Status: Active Protocol: Document 07/07/22 10:20 AG (Rec: 07/07/22 10:43 AG [id number]) Nutrition Malnutrition Evidence of Malnutrition Exists Yes Malnutrition (severe): Chronic Evidenced By Weight Loss (Severe),Physical Changes (Moderate) Clinical Problem Chronic Disease or Condition Related Malnutrition Etiology severe, chronic malnutrition related to predicted inadequate oral intake Signs/Symptoms as evidenced by wt loss of 23. 6#/14% x 9 months, moderate muscle wasting/fat loss in orbital, temporal, clavicle, and acromion areas per physical exam Status Active Problem Recommendation Dietitian Recommendations/Changes NPO while intubated; Continue TF support via OGT- Vital AF 1 .2 at goal rate of 55mL/hour w / 100mL H2O flush every 4 hours to provide 1584 calories , 99 g protein, and 1670mL total fluid/day. Lab / Micro Data Result Diagrams: 07/09/22 04:10 07/09/22 04:10 Labs: Laboratory Results - last 24 hr 07/09/22 04:10: WBC 15.4 H, RBC 3.33 L, Hgb 9.1 L, Hct 29.7 L, MCV 89.2, MCH 27.3, MCHC 30.6 L, RDW Std Deviation 57.3 H, RDW Coeff of [place]onte 17.9 H, Plt Count 381, MPV 10.3, Immature Gran % (Auto) 1.900 H, Neut % (Auto) 72.2 H, Lymph % (Auto) 14.9 L, [place] % (Auto) 10.2 H, Eos % (Auto) 0.3, Baso % (Auto) 0.5, Absolute Neuts (auto) 11.2 H, Absolute Lymphs (auto) 2.30, Nucleated RBC % 0, Differential Comment SCANNED, Diff Path Review November07/09/22 04:10: PT 14.5, INR 1.2, APTT 28.3 07/09/22 04:10: Sodium 145, Potassium 3.6, Chloride 106, Carbon Dioxide 35.0 H, Anion Gap 4 L, BUN 24 H, Creatinine 0.64, Estim Creat Clear Calc 45.16, Est GFR (MDRD) Af Amer 118, Est GFR (MDRD) Non-Af 98, BUN/Creatinine Ratio 37.4 H, Glucose 145 H, Calcium 8.2 L Micro: Microbiology 07/03/22 03:10 Sputum, Induced/Lukens Gram Stain - Final 07/03/22 03:10 Sputum, Induced/Lukens Respiratory Culture - Final Culture exhibits no growth. 06/29/22 23:15 Blood Culture (Wb) - Anticubital Right Blood Culture - Final No growth in 5 days. 06/29/22 22:48 Blood Culture (Wb) - Anticubital Right Blood Culture - Final No growth in 5 days. 06/30/22 02:25 Sputum, Tracheal Aspirate Gram Stain - Final 06/30/22 02:25 Sputum, Tracheal Aspirate Respiratory Culture - Final 06/29/22 23:25 Urine Catheter - Fortune Urine Culture - Final Escherichia coli 06/30/22 02:35 Mucosa - Nasopharyngeal Respiratory Panel (PCR) - Final 06/29/22 23:30 Nasal Secretion SARS-CoV-2 & FLU Antigen (Rapid) - Final Physical Exam Narrative General: Alert, intubated and mechanically ventilated HEENT: Atraumatic, PERRLA, EOMI, Normocephalic Oral: Moist Mucosa Neck: Supple, No JVD Lungs: Diminished, Normal air movement, No rhonchi, No wheeze, No rales Cardiovascular: Regular rate, Regular Rhythm, Normal S1, Normal S2, No murmurs Abdomen: Soft, Non Tender, Non-Distended, No Hepato-splenomegaly Extremities: Edema, Capillary Refill Less than 3 Seconds Skin: No rashes, No breakdown Musculoskeletal: No Tenderness to Palpation of Joints or Extremities Neurological: Moves all extremities, follows simple commands Psych/Mental Status: Anxious Assessment & Plan Assessment/Plan (1) Altered mental status: PLAN: Plan 1. Acute on chronic hypoxic respiratory failure from end-stage COPD and possible postictal versus polypharmacy with a toxic versus postictal encephalopathy/seizure disorder/shock unknown etiology ? Continue with ventilatory settings, plan for trach per family ? Continue with Precedex given her anxiety the ventilator ? Continue with Lasix as well as Keppra ? Continue with Levophed for blood pressure support ? Unsure as to the etiology of her shock could be due to adrenal deficiency we will continue to monitor and make adjustments, continue with hydrocortisone 2. Chronic systolic CHF with a history of Takotsubo's cardiomyopathy/CAD/HTN/history of CVAs ? Will hold blood pressure medication secondary to her hypotension and the need for Levophed ? Continue with Lasix for edema ? She did have a recent transfer to [facility] in January 2022 for a hemorrhagic CVA, MRI does not show any recent 3. Severe chronic protein calorie malnutrition ? Nutrition is monitoring 4. Acute cystitis ? This was due to E. coli ? She is completed antibiotics 5. Chronic anemia due to iron deficiency ? We will continue to monitor ? Continue with iron supplementation DVT: Lovenox Charges/Coding Visit Charges Inpatient E&M: 67699 Subs Hosp L2
[2022-07-09] MEDS: Propofol 10MG/Ml 1,000 MG/100 ML Bottle 15.9 MG CONT INF ×3 (09:21→21:18)
[2022-07-09] MEDS: Famotidine 200 MG/20 ML MDV 20 MG in 0.9% Normal Saline (Pres. free 8 ML 300 MG IV ×2 (09:24→21:25)
[2022-07-09] MEDS: levoFLOXacin IV 500 MG/100 ML BAG 100 MG IV (13:16)
--- NOTE | 2022-07-09 14:38 | OP.CCLET_ITS ---
07/09/2022 Maryam Pineda [address] [place] [address] Re : Upper GI endoscopy procedure for Luiza Gerber Dear Dr. Pineda This procedure was performed on July. My impressions and recommendations are as follows: Impressions : - No gross lesions in esophagus. - Erythematous mucosa in the anterior wall of the stomach. - Normal first portion of the duodenum. - An externally removable PEG placement was successfully completed. - No specimens collected. Recommendations : - Return patient to ICU for ongoing care. - Continue present medications. My findings are described in the full procedure note, which is enclosed. If I can be of further assistance, please feel free to contact me at . Sincerely, Raymon Elizabeth, 07/09/2022 2:37:50 PM This report has been signed electronically.
--- NOTE | 2022-07-09 14:38 | OP.EGD_ITS ---
Patient Name: Luiza Mayes Procedure Date: 07/09/2022 12:57 PM Date of : 1955 Age: 66 Procedure: Upper GI endoscopy Indications: Dysphagia Providers: Raymon Elizabeth DO Medicines: Monitored Anesthesia Care, Propofol total dose 200 mg IV Patient Profile: This is a 66 year old female. Refer to note in patient chart for documentation of history and physical. Patient has symptoms. Complications: No immediate complications. Procedure: Pre-Anesthesia Assessment: - Prior to the procedure, a History and Physical was performed, and patient medications and allergies were reviewed. The patient is competent. The risks and benefits of the procedure and the sedation options and risks were discussed with the patient. All questions were answered and informed consent was obtained. Patient identification and proposed procedure were verified by the physician in the pre-procedure area. Mental Status Examination: alert and oriented. Airway Examination: normal oropharyngeal airway and neck mobility. Respiratory Examination: clear to auscultation. CV Examination: normal. Prophylactic Antibiotics: The patient does not require prophylactic antibiotics. Prior Anticoagulants: The patient has taken no previous anticoagulant or antiplatelet agents. ASA Grade Assessment: II - A patient with mild systemic disease. After reviewing the risks and benefits, the patient was deemed in satisfactory condition to undergo the procedure. The anesthesia plan was to use moderate sedation / analgesia (conscious sedation). Immediately prior to administration of medications, the patient was re-assessed for adequacy to receive sedatives. The heart rate, respiratory rate, oxygen saturations, blood pressure, adequacy of pulmonary ventilation, and response to care were monitored throughout the procedure. The physical status of the patient was re-assessed after the procedure. After obtaining informed consent, the endoscope was passed under direct vision. Throughout the procedure, the patient's blood pressure, pulse, and oxygen saturations were monitored continuously. The gastroscope was introduced through the mouth, and advanced to the second part of duodenum. The upper GI endoscopy was accomplished without difficulty. The patient tolerated the procedure well. Scope In: 1:10:08 PM Scope Out: 1:26:03 PM Total Procedure Duration Time 0 hours 15 minutes 55 seconds Findings: No gross lesions were noted in the entire esophagus. Patchy mildly erythematous mucosa without bleeding was found on the anterior wall of the stomach. The patient was placed in the supine position for PEG placement. The stomach was insufflated to appose gastric and abdominal bermudez. A site was located in the cardia with excellent transillumination for placement. The abdominal wall was marked and prepped in a sterile manner. The area was anesthetized with 1 mL of 0.5% lidocaine. The trocar needle was introduced through the abdominal wall and into the stomach under direct endoscopic view. A snare was introduced through the endoscope and opened in the gastric lumen. The guide wire was passed through the trocar and into the open snare. The snare was closed around the guide wire. The endoscope and snare were removed, pulling the wire out through the mouth. A skin incision was made at the site of needle insertion. The externally removable 14 Fr Bard gastrostomy tube was lubricated. The G-tube was tied to the guide wire and pulled through the mouth and into the stomach. The trocar needle was removed, and the gastrostomy tube was pulled out from the stomach through the skin. The external bumper was attached to the gastrostomy tube, and the tube was cut to remove the guide wire. The final position of the gastrostomy tube was confirmed by relook endoscopy, and skin marking noted to be 4 cm at the external bumper. The final tension and compression of the abdominal wall by the PEG tube and external bumper were checked. The feeding tube was capped, and the tube site cleaned and dressed. The first portion of the duodenum was normal. Impression: - No gross lesions in esophagus. - Erythematous mucosa in the anterior wall of the stomach. - Normal first portion of the duodenum. - An externally removable PEG placement was successfully completed. - No specimens collected. Recommendation: - Return patient to ICU for ongoing care. - Continue present medications. Procedure Code(s): --- Professional --- 73803, Esophagogastroduodenoscopy, flexible, transoral; with directed placement of percutaneous gastrostomy tube CPT copyright 2017 [employer]. All rights reserved. The codes documented in this report are preliminary and upon mill hand review may be revised to meet current compliance requirements. Raymon Elizabeth DO 07/09/2022 2:37:50 PM This report has been signed electronically. Number of Addenda: 0 Note Initiated On: 07/09/2022 12:57 PM
[2022-07-09] MEDS: Dexmedetomidine 1,000 mcg in 0.9% NS 240 mL 24.8 MCG CONT INF (17:49)
[2022-07-09] MEDS: Polyethylene Glycol 3350 17 GM PACKET GT (21:25)
[2022-07-09] MEDS: Senna/Docusate Sodium 1 Tablet 2 TABLET GT (21:25)
[2022-07-09] MEDS: Albuterol 2.5 MG/3 ML VIAL.NEB. INHALATION (23:01)
[2022-07-10] VITALS (48 sets, daily range): BP systolic 92–134; BP diastolic 38–78; PULSE 71–123; RESP 14–27; TEMP 37.5–38.1; O2SAT 89–100
[2022-07-10] MEDS: Ipratropium/Albuterol Sulfate 3 ML AMPUL.NEB INHALATION ×3 (01:40→19:20)
[2022-07-10] MEDS: Dexmedetomidine 1,000 mcg in 0.9% NS 240 mL 24.8 MCG CONT INF (03:35)
[2022-07-10] MEDS: Propofol 10MG/Ml 1,000 MG/100 ML Bottle 15.9 MG CONT INF ×2 (03:36→09:01)
[2022-07-10] MEDS: 0.9% Saline Lock 10 ML Syringe IV (03:36)
[2022-07-10] MEDS: CHLORHEXIDINE GLUC 2% CLOTH 1 EACH TOWELETTE TOPICAL (03:37)
[2022-07-10 03:47] LABS: Absolute Lymphocyte Count 2.24 X10^3/uL (0.83-4.51); Absolute Neutrophil Count 15.9 X10^3/uL (2.0-7.7); Basophil# 0.06 X10^3/uL; Basophil% 0.3 % (0-1); Eosinophil# 0.03 X10^3/uL; Eosinophils% 0.2 % (0-5); Hematocrit 30.3 % (37-47); Hemoglobin 9.4 g/dL (12.0-15.0); Lymphocyte # 2.24 X10^3/ul (0.83-4.51); Lymphocyte % 11.3 % (19-41); Mean Corpuscular Hgb 27.3 pg (27.0-32.0); Mean Corpuscular Volume 88.1 fL (81-99); Mean Platelet Vol. 9.9 fl (6.2-12.0); Monocyte# 1.45 X10^3/uL; Monocyte% 7.3 % (0-10); NRBC Flagged by Analyzer 0.1 % (0-5); Neutrophil # 15.91 X10^3/uL (2.7-7.7); Neutrophil % 79.8 % (47-70); Platelet Count 373 K/mm3 (150-450); RBC Distribution Width CV 18.1 % (11.6-14.6); RBC Distribution Width SD 57.4 fl (35.1-43.9); Red Blood Count 3.44 M/mm3 (4.2-5.4); White Blood Count 19.9 K/mm3 (4.4-11.0)
[2022-07-10 04:02] LABS: Anion Gap 8 (5-15); BUN 21 mg/dL (7-18); Calcium,Total 8.5 mg/dL (8.5-10.1); Chloride 105 mmol/L (98-107); Creatinine, Serum 0.64 mg/dL (0.55-1.02); EST Glomerular Filtration Rate 99 mL/min (>60); Est Glom Filt Rate - Afr Amer 119 mL/min (>60); Estimated Creatinine Clearance 45.16 ml/min; Glucose 142 mg/dL (74-106); Potassium 3.6 mmol/L (3.5-5.1); Sodium Level 144 mmol/L (136-145)
[2022-07-10 04:09] LABS: CPK Total, Creatine Kinase 141 U/L (26-192); Triglycerides 164 mg/dL
--- NOTE | 2022-07-10 05:55 | RAD_ITS ---
STUDY: X-RAY CHEST REASON FOR EXAM: Female, 66 years old. increased O2 needs TECHNIQUE: Single AP portable view of the chest. COMPARISON: 07/07/2022 FINDINGS: An endotracheal tube is in situ with the tip at 4 cm proximal to the claude. A right-sided PICC line catheter is in situ with the tip at the junction of the superior vena cava and right atrium. EKG electrodes are seen. Mild residual increased markings at the lung bases slightly more prominent on the left side although there has been improvement to prior study. There is no demonstrated pleural abnormality. Normal size heart. Normal mediastinum and jacinto. Normal visualized pulmonary arteries. Normal visualized aortic arch and descending thoracic aorta. Normal visualized thoracic spine. Normal visualized ribs, clavicles, and shoulders. There is no demonstrated abnormality of the visualized soft tissue structures of the upper abdomen. RAD/Chest 1 View (Portable) IMPRESSION: There has been no significant change in since the previous study. Electronically Signed: Peter De Guzman MD at 6:29 EST ,
[2022-07-10] MEDS: Phenytoin Na 100 MG/2 ML Vial IV ×3 (06:53→21:15)
[2022-07-10] MEDS: Hydrocortisone Sod Succinate 100 MG/2 ML Vial IV ×3 (06:53→21:16)
--- NOTE | 2022-07-10 07:38 | PCM.PN.INT ---
Assessment & Plan Assessment/Plan (1) Acute and chronic respiratory failure with hypercapnia: PLAN: Plan RECOMMENDATIONS: 1. Continue assist-control mode of mechanical ventilation. Wean FiO2/PEEP for saturations greater than 90%. 2. Hold tube feeds for procedures as necessary 3. Continue antiepileptics, along with seizure precautions. 4. Hold diuresis. Continue stress dose steroids until off of pressors. 5. Electrolyte repletion as indicated 6. Continue scheduled bronchodilators and antimicrobials. 7. Continue appropriate ICU prophylaxis. 8. Prepare for trach and PEG IMPRESSIONS: 1. Acute on chronic combined respiratory failure The patient has known end-stage COPD and chronic hypoxemic respiratory failure, along with baseline CO2 retention. She has questionable compliance with her outpatient noninvasive ventilator. I do suspect that her acute respiratory decompensation may have been triggered by a postictal state and/or polypharmacy effects. The patient actually improved from a respiratory perspective and was extubated on July 02. However, she apparently decompensated overnight after receiving a one-time dose of Vistaril. Potential etiologies for her decompensation overnight include medication induced respiratory depression versus seizures and subsequent postictal state. The patient was reintubated on July 03. FiO2 will be weaned for saturations greater than 90%. Patient appears to be medically optimized at this time. Patient has been on steroids for 6 days and still has no leak. Family is electing for a trach and PEG as this is the safest course. Patient is on minimal vent settings, so long-term mechanical ventilation may not be required, but exact etiology of the lack of leak is not clear. Tracheostomy scheduled for today. 2. Encephalopathy Improving. Likely metabolic in the setting of CO2 retention and/or related to postictal state in the setting of new onset seizure activity. In addition, there is some question as to whether possible polypharmacy may have also been contributing, as the patient was positive for benzodiazepines and opiates on her toxicology screen. Plan to continue current antiepileptics along with seizure precautions and as needed Ativan. Patient appears to be more appropriate 3. Multifactorial shock/relative adrenal insufficiency The patient initially developed hypotension as a consequence of sedative medication use. Therefore, her hemodynamic instability may be the consequence of the propofol and fentanyl currently being utilized to keep her comfortable while intubated. Alternatively, sepsis related to gram-negative UTI is likely also contributing. Repeat cultures have been unrevealing. We will attempt to decrease sedation once patient has tracheostomy and see if pressors can be discontinued. Once patient is off pressors, will likely decrease steroids. 4. E. coli UTI Completed course of antibiotics. 5. History of end-stage COPD/chronic hypoxemic respiratory failure/obstructive sleep apnea/frequent COPD exacerbations The patient has a known history of end-stage COPD with questionable outpatient medical compliance. The patient has had compliance issues in the past related to her supplemental oxygen use and noninvasive ventilator utilization. She will be maintained on scheduled bronchodilators for now. Management as noted above. 6. History of hemorrhagic CVA/former tobacco dependency/history of cardiomyopathy/anxiety/depression Complicates care, management, recovery and prognosis. Okay to continue tube feeds today from my perspective. Replete potassium as indicated. See orders. TIME: 34 minutes of critical care time, independent of procedures, was spent addressing the patient's acute on chronic combined respiratory failure, encephalopathy, multifactorial shock, review of all data and collaboration with the care team. Subjective Subjective Patient did well overnight. Patient did have a PEG placed yesterday with no complications. No seizure activity has been reported. Patient did have some increased peak airway pressures overnight, but these have resolved. Chest x-ray was unremarkable. Objective Data Objective Data Patient to have tracheostomy today at 11:30 AM Vital Signs: Vital Signs Temp Pulse Resp BP Pulse Ox O2 Del Method O2 Flow Rate 37.8 C H 77 14 125/55 H 95 Mechanical Ventilator 4 07/10/22 06:00 07/10/22 07:01 07/10/22 07:01 07/10/22 06:00 07/10/22 07:01 07/10/22 06:00 07/03/22 01:15 FiO2 30 07/10/22 07:01 Oxygen Flow Rate (L/min) 4 Oxygen Delivery Method Mechanical Ventilator Weight: 64.2 kg Body Mass Index (BMI) 22.9 Intake & Output: Intake and Output for Last 24 Hours 07/08/22 07/09/22 07/10/22 23:59 23:59 23:59 Intake Total 3609.11 / 3784.01 3343.91 / 3413.62 836.47 / 836.47 Output Total 4950 / 5450 4275 / 5375 1350 / 1350 Balance -1340.89 / -1665.99 -931.09 / -1961.38 -513.53 / -513.53 Medical Nutrition Assessment Dietitian: Malnutrition Criteria Met Start: 06/30/22 10:32 Freq: Status: Active Protocol: Document 07/09/22 10:40 AG (Rec: 07/09/22 10:40 AG [id number]) Nutrition Malnutrition Evidence of Malnutrition Exists Yes Malnutrition (severe): Chronic Evidenced By Weight Loss (Severe),Physical Changes (Moderate) Clinical Problem Chronic Disease or Condition Related Malnutrition Etiology severe, chronic malnutrition related to predicted inadequate oral intake Signs/Symptoms as evidenced by wt loss of 23. 6#/14% x 9 months, moderate muscle wasting/fat loss in orbital, temporal, clavicle, and acromion areas per physical exam Status Active Problem Recommendation Dietitian Recommendations/Changes NPO while intubated; Resume via PEG as appropriate- Vital AF 1.2 at goal rate of 55mL/ hour w/ 100mL H2O flush every 4 hours to provide 1584 calories, 99 g protein, and 1670mL total fluid/day. Lab / Micro Data Attestation: I reviewed the patient's lab results. Result Diagrams: 07/10/22 03:40 07/10/22 03:40 Labs: Laboratory Results - last 24 hr 07/10/22 03:40: WBC 19.9 H, RBC 3.44 L, Hgb 9.4 L, Hct 30.3 L, MCV 88.1, MCH 27.3, MCHC 31.0 L, RDW Std Deviation 57.4 H, RDW Coeff of Deonte 18.1 H, Plt Count 373, MPV 9.9, Immature Gran % (Auto) 1.100 H, Neut % (Auto) 79.8 H, Lymph % (Auto) 11.3 L, [place] % (Auto) 7.3, Eos % (Auto) 0.2, Baso % (Auto) 0.3, Absolute Neuts (auto) 15.9 H, Absolute Lymphs (auto) 2.24, Nucleated RBC % 0.1 07/10/22 03:40: Sodium 144, Potassium 3.6, Chloride 105, Carbon Dioxide 31.0, Anion Gap 8, BUN 21 H, Creatinine 0.64, Estim Creat Clear Calc 45.16, Est GFR (MDRD) Af Amer 119, Est GFR (MDRD) Non-Af 99, BUN/Creatinine Ratio 33.0 H, Glucose 142 H, Calcium 8.5 07/10/22 03:40: Total Creatine Kinase 141, Triglycerides 164 Micro: Microbiology 07/03/22 03:10 Sputum, Induced/Lukens Gram Stain - Final 07/03/22 03:10 Sputum, Induced/Lukens Respiratory Culture - Final Culture exhibits no growth. 06/29/22 23:15 Blood Culture (Wb) - Anticubital Right Blood Culture - Final No growth in 5 days. 06/29/22 22:48 Blood Culture (Wb) - Anticubital Right Blood Culture - Final No growth in 5 days. 06/30/22 02:25 Sputum, Tracheal Aspirate Gram Stain - Final 06/30/22 02:25 Sputum, Tracheal Aspirate Respiratory Culture - Final 06/29/22 23:25 Urine Catheter - Fortune Urine Culture - Final Escherichia coli 06/30/22 02:35 Mucosa - Nasopharyngeal Respiratory Panel (PCR) - Final 06/29/22 23:30 Nasal Secretion SARS-CoV-2 & FLU Antigen (Rapid) - Final Radiography Diagnostic Testing: Radiology Impression Chest X-Ray 07/10/22 05:55 IMPRESSION: There has been no significant change in since the previous study. Electronically Signed: Peter De Guzman MD at 6:29 EST , Physical Exam Const alert Constitutional Narrative: Anasarca slowly improving. RASS -1. General Appearance: intubated and patient mechanically ventilated HEENT normocephalic and head/scalp atraumatic HEENT Narrative: No leak noted Mouth: endotracheal tube in place and OG tube in place Eyes PERRL and EOMs intact bilaterally Eyes Narrative: Does track and shake head appropriately Neck supple General: trachea midline Chest Chest Narrative: Increased AP diameter Resp Auscultation: diminished lung sounds; Negative for rales, rhonchi or wheezes Cardio regular rate, regular rhythm, S1 normal heart sound, S2 normal heart sound, no murmurs, no rub and no gallops GI normal to inspection, nondistended, normoactive bowel sounds Inspection: GI tube present Extremity Extremity Narrative: 1+ anasarca noted General Extremity: edema bilateral (Improved.) Skin no rashes or lesions noted Neuro Neuro Narrative: Alert and able to follow simple commands. Sensorium / Orientation: sedated on vent Psych Activity / Motor Behavior: restless Mood & Affect: anxious Charges/Coding Procedures Hospitalists Procedures: 26735 Critial Care 1st Hr
--- NOTE | 2022-07-10 08:54 | CON.PCM_ITS ---
Assessment & Plan Assessment/Plan (1) Acute and chronic respiratory failure with hypercapnia: PLAN: Plan 66 year old female with COPD, substance abuse, and question for seizure activity -will place tracheostomy, perform DL given lack of cuff leak HPI Consult Data Date of Consult: 07/10/22 HPI Narrative Reason for Consultation: tracheostomy / respiratory failure HPI Narrative: MARCO MAY, is a 66 F who presents with respiratory failure. she has a long history of COPD with multiple intubations. recently intubated in the ER after mental status changes and concern for seizure activity. she has been intubated for 10 days and has no cuff leak. per the ICU staff, the family does not want to risk extubation and failed reintubation. [facility] Medical History Alcohol abuse Anxiety Anxiety and depression Chronic anemia Chronic systolic (congestive) heart failure CO2 narcosis Congestive heart failure (CHF) COPD (chronic obstructive pulmonary disease) Daytime hypersomnia Essential (primary) hypertension Fall GERD (gastroesophageal reflux disease) Head concussion Hemorrhagic cerebrovascular accident (CVA) (02/09/17) History of DVT of lower extremity (02/11/17) History of non-ST elevation myocardial infarction (NSTEMI) (02/03/17) Hypercarbia Hyperlipidemia Insomnia Ischemic cerebrovascular accident (CVA) (02/06/17) Non-ischemic cardiomyopathy Non-rheumatic mitral regurgitation TIO (obstructive sleep apnea) Respiratory insufficiency Secondary pulmonary arterial hypertension Stroke Takotsubo cardiomyopathy (06/17/21) TIA (transient ischemic attack) (10/25/19) Weakness due to old stroke Home Medications aspirin 81 mg tablet 81 mg PO DAILY heart health 11/03/20 [History Last Taken Unknown] cholecalciferol (vitamin D3) 25 mcg (1,000 unit) tablet (Vitamin D3) 25 mcg PO DAILY supplement 11/03/20 [History Last Taken Unknown] duloxetine 60 mg capsule,delayed release 60 mg PO DAILY depression 11/03/20 [History Last Taken Unknown] folic acid 1 mg tablet 1 mg PO DAILY supplement 11/03/20 [History Last Taken Unknown] pantoprazole 40 mg tablet,delayed release (Protonix) 40 mg PO DAILY GERD 11/03/20 [History Last Taken Unknown] potassium chloride 20 mEq tablet,extended release 20 meq PO DAILY supplement 11/03/20 [History Last Taken Unknown] ropinirole 0.5 mg tablet 0.5 mg PO QHS RLS 11/03/20 [History Last Taken Unknown] spironolactone 25 mg tablet 12.5 mg PO DAILY BP 11/03/20 [History Last Taken Unknown] albuterol sulfate 90 mcg/actuation aerosol inhaler (Ventolin HFA) 2 puff inhalation Q4H PRN shortness of breath or wheezing #18 grams 12/23/20 [Rx Last Taken Unknown] albuterol sulfate 1.25 mg/3 mL solution for nebulization 1.25 mg inhalation Q4H PRN Shortness Of Breath Or Wheezing 06/15/21 [History Last Taken Unknown] escitalopram oxalate 10 mg tablet (Lexapro) 10 mg PO DAILY 07/07/21 [History Last Taken Unknown] mecobalamin (vitamin B12) 5,000 mcg disintegrating tablet 5,000 mcg PO DAILY 07/07/21 [History Last Taken Unknown] losartan 25 mg tablet 25 mg PO DAILY 12/02/21 [History Last Taken Unknown] zolpidem 10 mg tablet 10 mg PO QHS PRN Sleep 12/02/21 [History Last Taken Unknown] hydroxyzine pamoate 25 mg capsule (Vistaril) 25 mg PO BID PRN itching #20 caps 12/06/21 [Rx Last Taken Unknown] prednisone 20 mg tablet 60 mg PO DAILY #15 TABLETS 02/26/22 [Rx Last Taken Unknown] hydrocodone-acetaminophen 5-325mg 5mg-325mg 1 tab PO Q4H PRN PRN Pain 2 days #10 TABLETS 03/19/22 [Rx Last Taken Unknown] cephalexin 500 mg capsule 500 mg PO Q8H #30 caps 03/20/22 [Rx Last Taken Unknown] fluticasone fur. 100 mcg-umeclid 62.5 mcg-vilant 25 mcg inhalat.powder 1 inh inhalation DAILY COPD #60 ea 04/14/22 [Rx Last Taken Unknown] Allergy/AdvReac Type Severity Reaction Status Date / Time tetanus and diphtheria Allergy Hives Verified 06/29/22 22:19 toxoids [tetanus & diphtheria toxoids] Family History Sister Cancer lung Father Cancer lung Mother Cancer lung Surgical History H/O: section History of bilateral cataract extraction History of cholecystectomy History of left heart catheterization (06/17/21) History of lumpectomy Hx of appendectomy Social History household members: none Smoking Status: Former smoker how long ago did patient quit smokin, 1pk/day second hand exposure: Yes alcohol intake: former substance use type: does not use what type of physical activity do you participate in: walking frequency: daily ROS Review of Systems ROS Unobtainable: due to endotracheal tube Physical Exam Const Constitutional Narrative: intubated/sedated HEENT HEENT Narrative: neck landmarks palpable Nose: external nose normal External Ear: external ears normal Mouth: oral and palatal mucosa normal Medical Records Data Medical Nutrition Assessment Dietitian: Malnutrition Criteria Met Start: 06/30/22 10:32 Freq: Status: Active Protocol: Document 07/09/22 10:40 AG (Rec: 07/09/22 10:40 AG [id number]) Nutrition Malnutrition Evidence of Malnutrition Exists Yes Malnutrition (severe): Chronic Evidenced By Weight Loss (Severe),Physical Changes (Moderate) Clinical Problem Chronic Disease or Condition Related Malnutrition Etiology severe, chronic malnutrition related to predicted inadequate oral intake Signs/Symptoms as evidenced by wt loss of 23. 6#/14% x 9 months, moderate muscle wasting/fat loss in orbital, temporal, clavicle, and acromion areas per physical exam Status Active Problem Recommendation Dietitian Recommendations/Changes NPO while intubated; Resume via PEG as appropriate- Vital AF 1.2 at goal rate of 55mL/ hour w/ 100mL H2O flush every 4 hours to provide 1584 calories, 99 g protein, and 1670mL total fluid/day. Lab / Micro Data Result Diagrams: 07/10/22 03:40 07/10/22 03:40 Labs: Laboratory Results - last 24 hr 07/10/22 03:40: WBC 19.9 H, RBC 3.44 L, Hgb 9.4 L, Hct 30.3 L, MCV 88.1, MCH 27.3, MCHC 31.0 L, RDW Std Deviation 57.4 H, RDW Coeff of Deonte 18.1 H, Plt Count 373, MPV 9.9, Immature Gran % (Auto) 1.100 H, Neut % (Auto) 79.8 H, Lymph % (Auto) 11.3 L, Cotton % (Auto) 7.3, Eos % (Auto) 0.2, Baso % (Auto) 0.3, Absolute Neuts (auto) 15.9 H, Absolute Lymphs (auto) 2.24, Nucleated RBC % 0.1 07/10/22 03:40: Sodium 144, Potassium 3.6, Chloride 105, Carbon Dioxide 31.0, Anion Gap 8, BUN 21 H, Creatinine 0.64, Estim Creat Clear Calc 45.16, Est GFR (MDRD) Af Amer 119, Est GFR (MDRD) Non-Af 99, BUN/Creatinine Ratio 33.0 H, Glucose 142 H, Calcium 8.5 07/10/22 03:40: Total Creatine Kinase 141, Triglycerides 164 Radiology Impression Chest X-Ray 07/10/22 05:55 IMPRESSION: There has been no significant change in since the previous study. Electronically Signed: Peter De Guzman MD at 6:29 EST ,
[2022-07-10 10:00] LABS: Pathologist Review Reviewed
[2022-07-10] MEDS: Famotidine 200 MG/20 ML MDV 20 MG in 0.9% Normal Saline (Pres. free 8 ML 300 MG IV ×2 (10:12→21:14)
[2022-07-10] MEDS: Chlorhexidine 15 ML PO ×2 (10:12→21:13)
--- NOTE | 2022-07-10 10:24 | PCM.PN.HOSP ---
Subjective Subjective Received her PEG tube yesterday, plan for trach today. No issues overnight Objective Data Objective Data Vital Signs: Vital Signs Temp Pulse Resp BP Pulse Ox O2 Del Method O2 Flow Rate 100.1 F H 75 18 114/52 L 93 Mechanical Ventilator 30 07/10/22 07:57 07/10/22 09:58 07/10/22 09:58 07/10/22 09:58 07/10/22 09:58 07/10/22 08:24 07/10/22 08:24 FiO2 35 07/10/22 09:58 Oxygen Flow Rate (L/min) 30 Oxygen Delivery Method Mechanical Ventilator Weight: 141 lb 8.588 oz Body Mass Index (BMI) 22.9 Intake & Output: Intake and Output for Last 24 Hours 07/09/22 07/10/22 07/11/22 03:59 03:59 03:59 Intake Total 3766.98 / 3832.53 3158.57 / 3200.83 412.99 / 412.99 Output Total 4500 / 4500 4875 / 4875 250 / 250 Balance -733.02 / -667.47 -1716.43 / -1674.17 162.99 / 162.99 Medical Nutrition Assessment Dietitian: Malnutrition Criteria Met Start: 06/30/22 10:32 Freq: Status: Active Protocol: Document 07/09/22 10:40 AG (Rec: 07/09/22 10:40 AG [id number]) Nutrition Malnutrition Evidence of Malnutrition Exists Yes Malnutrition (severe): Chronic Evidenced By Weight Loss (Severe),Physical Changes (Moderate) Clinical Problem Chronic Disease or Condition Related Malnutrition Etiology severe, chronic malnutrition related to predicted inadequate oral intake Signs/Symptoms as evidenced by wt loss of 23. 6#/14% x 9 months, moderate muscle wasting/fat loss in orbital, temporal, clavicle, and acromion areas per physical exam Status Active Problem Recommendation Dietitian Recommendations/Changes NPO while intubated; Resume via PEG as appropriate- Vital AF 1.2 at goal rate of 55mL/ hour w/ 100mL H2O flush every 4 hours to provide 1584 calories, 99 g protein, and 1670mL total fluid/day. Lab / Micro Data Result Diagrams: 07/10/22 03:40 07/10/22 03:40 Labs: Laboratory Results - last 24 hr 07/09/22 04:10: Diff Path Review Reviewed 07/10/22 03:40: WBC 19.9 H, RBC 3.44 L, Hgb 9.4 L, Hct 30.3 L, MCV 88.1, MCH 27.3, MCHC 31.0 L, RDW Std Deviation 57.4 H, RDW Coeff of Deonte 18.1 H, Plt Count 373, MPV 9.9, Immature Gran % (Auto) 1.100 H, Neut % (Auto) 79.8 H, Lymph % (Auto) 11.3 L, Maverick % (Auto) 7.3, Eos % (Auto) 0.2, Baso % (Auto) 0.3, Absolute Neuts (auto) 15.9 H, Absolute Lymphs (auto) 2.24, Nucleated RBC % 0.1 07/10/22 03:40: Sodium 144, Potassium 3.6, Chloride 105, Carbon Dioxide 31.0, Anion Gap 8, BUN 21 H, Creatinine 0.64, Estim Creat Clear Calc 45.16, Est GFR (MDRD) Af Amer 119, Est GFR (MDRD) Non-Af 99, BUN/Creatinine Ratio 33.0 H, Glucose 142 H, Calcium 8.5 07/10/22 03:40: Total Creatine Kinase 141, Triglycerides 164 Micro: Microbiology 07/03/22 03:10 Sputum, Induced/Lukens Gram Stain - Final 07/03/22 03:10 Sputum, Induced/Lukens Respiratory Culture - Final Culture exhibits no growth. 06/29/22 23:15 Blood Culture (Wb) - Anticubital Right Blood Culture - Final No growth in 5 days. 06/29/22 22:48 Blood Culture (Wb) - Anticubital Right Blood Culture - Final No growth in 5 days. 06/30/22 02:25 Sputum, Tracheal Aspirate Gram Stain - Final 06/30/22 02:25 Sputum, Tracheal Aspirate Respiratory Culture - Final 06/29/22 23:25 Urine Catheter - Fortune Urine Culture - Final Escherichia coli 06/30/22 02:35 Mucosa - Nasopharyngeal Respiratory Panel (PCR) - Final 06/29/22 23:30 Nasal Secretion SARS-CoV-2 & FLU Antigen (Rapid) - Final Radiography Diagnostic Testing: Radiology Impression Chest X-Ray 07/10/22 05:55 IMPRESSION: There has been no significant change in since the previous study. Electronically Signed: Peter De Guzman MD at 6:29 EST Reading Location ID and State: [facility] / [place] Tel , Service support , Physical Exam Narrative General: Alert, intubated and mechanically ventilated HEENT: Atraumatic, PERRLA, EOMI, Normocephalic Oral: Moist Mucosa Neck: Supple, No JVD Lungs: Diminished, Normal air movement, No rhonchi, No wheeze, No rales Cardiovascular: Regular rate, Regular Rhythm, Normal S1, Normal S2, No murmurs Abdomen: Soft, Non Tender, Non-Distended, No Hepato-splenomegaly Extremities: Edema, Capillary Refill Less than 3 Seconds Skin: No rashes, No breakdown Musculoskeletal: No Tenderness to Palpation of Joints or Extremities Neurological: Moves all extremities, follows simple commands Psych/Mental Status: Anxious Assessment & Plan Assessment/Plan (1) Altered mental status: PLAN: Plan 1. Acute on chronic hypoxic respiratory failure from end-stage COPD and possible postictal versus polypharmacy with a toxic versus postictal encephalopathy/seizure disorder/shock unknown etiology ? Plan for trach today, PEG tube on 07/09/2022, can resume tube feeds after her trach ? Continue with Precedex given her anxiety with the ventilator ? Continue with Lasix as needed and will continue with Keppra ? Continue with Levophed for blood pressure support ? Unsure as to the etiology of her shock could be due to adrenal deficiency we will continue to monitor and make adjustments, continue with hydrocortisone 2. Chronic systolic CHF with a history of Takotsubo's cardiomyopathy/CAD/HTN/history of CVAs ? Will hold blood pressure medication secondary to her hypotension and the need for Levophed ? Continue with Lasix for edema as needed ? She did have a recent transfer to [facility] in January 2022 for a hemorrhagic CVA, MRI does not show any recent CVA 3. Severe chronic protein calorie malnutrition ? Nutrition is monitoring 4. Acute cystitis ? This was due to E. coli ? She is completed antibiotics 5. Chronic anemia due to iron deficiency ? We will continue to monitor ? Continue with iron supplementation DVT: Lovenox Charges/Coding Visit Charges Inpatient E&M: 38363 Subs Hosp L2
[2022-07-10] MEDS: Lidocaine 2% /Epi 1:100 (20ml) 20 ML VIAL (11:57)
--- NOTE | 2022-07-10 12:30 | OP.PCM_ITS ---
Problems Associated Problem List Diagnoses (1) Acute and chronic respiratory failure with hypercapnia: Report of Operation Date of Procedure: 07/10/22 Pre-Operative Diagnosis: respiratory failure Post-Operative Diagnosis: respiratory failure Surgery/Procedure Performed:: 1. tracheostomy with ra flap Surgeon: Yash Mancilla Type of Anesthesia: General Description of Procedure: on the day of the procedure, after appropriate informed consent was obtained, the patient was brought to the operating room from the ICU and placed under a nesthesia through her existing endotracheal tube. the neck was prepped and draped in sterile fashion and injected with lidocaine/epinephrine. a 2cm transverse incision was made in the lower neck 2cm superior to the sternal notch with a 15 blade. a lipectomy was performed using the bovie. the infrahyoid strap muscles were divided along their midline raphe and retracted laterally. the pretracheal fascia was incised and dissected superiorly, posterior to the thyroid gland. the inferior portion of the isthmus was divided using the bovie. an incision was made between tracheal rings 2 and 3 with a 15 blade; a ra flap was created with cuved castillo scissor. this was sutured to the overlying skin with 2-0 ethibond. the endotracheal tube cuff was deflated and retracted. the trachea was suctioned. a 6DCT was placed and the balloon was inflated. end tidal CO2 was seen. it was sutured in 4 corners and secured with an umbilical tie. the patient was transported to the ICU in stable condition.
--- NOTE | 2022-07-10 13:05 | NURSING ---
Pt arrived back to ICU 1 with propofol drip infusing at 40 mcg/kg/min. Precedex and fentanyl were on hold at time of arrival, causing discrepancy between MAR volumes of the medications.
--- NOTE | 2022-07-10 13:06 | CASEMGMT ---
FINESSE LALA Follow-up: Pt returning from OR s/p trach placement. FINESSE LALA met with pt's daughter Ameena and pt's brother in waiting room. Discussed next steps in regard to discharge planning needs which includes LTACH for continued therapy and respiratory management. Pt's daughter expressed understanding. List of LTACH providers from [facility] including quality and resource use data and consistent with pt's geographic preference, medical needs, and in-network with pt's insurance provided. Pt's daughter requests [facility] facility due to positive previous experiences. Referral will be sent to [facility]. Will continue to follow for acceptance, insurance approval and medical appropriateness for transition. Uriel Purvis RN CM
--- NOTE | 2022-07-10 15:44 | NURSING ---
Addendum entered by Loren Méndez 07/10/22 18:15: 1700 Fentanyl 25; Precedex 0.9 1800 Fentanyl off; Precedex 0.8 Addendum entered by Loren Méndez 07/10/22 17:11: 1645 Fentanyl 50 Addendum entered by Loren Méndez 07/10/22 16:51: 1645 Precedex 1; Propofol off Addendum entered by Loren Méndez 07/10/22 16:35: 1615 Precedex remains at 1 mcg/kg/hr, Propofol at 10 mcg/kg/min; Fentanyl 75 mcg/hr 1630 Precedex @ 1; Propofol @ 5 Addendum entered by Loren Méndez 07/10/22 16:09: 1600 Precedex 1.0 mcg/kg/hr; Propofol 15 mcg/kg/min Original Note: Unable to document med titrations at this time d/t med being finished on 1544 Precedex weaned to 1.12 mcg/kg/hr; Fentanyl weaned to 100 mcg/hr
[2022-07-10] MEDS: Dexmedetomidine 1,000 mcg in 0.9% NS 240 mL 16.5 MCG CONT INF (16:48)
[2022-07-10] MEDS: oxyCODONE 5 MG Tablet GT (17:54)
[2022-07-10] MEDS: QUEtiapine 25 MG Tablet 50 MG GT (17:54)
[2022-07-10] MEDS: Vital AF 1.2 Cal Liquid 1,000 ML 35 ML GT (18:03)
--- NOTE | 2022-07-10 19:34 | PN_ITS ---
Subjective Subjective Patient underwent PEG tube placement at the bedside yesterday. Objective Data Objective Data Vital Signs: Vital Signs Temp Pulse Resp BP Pulse Ox O2 Del Method O2 Flow Rate 100 F H 120 H 18 110/49 L 97 Mechanical Ventilator 30 07/10/22 18:00 07/10/22 19:07 07/10/22 19:07 07/10/22 19:07 07/10/22 19:07 07/10/22 19:07 07/10/22 08:24 FiO2 28 07/10/22 19:07 Oxygen Flow Rate (L/min) 30 Oxygen Delivery Method Mechanical Ventilator Weight: 141 lb 8.588 oz Body Mass Index (BMI) 22.9 Intake & Output: Intake and Output for Last 24 Hours 07/08/22 07/09/22 07/10/22 23:59 23:59 23:59 Intake Total 3609.11 / 3784.01 3343.91 / 3413.62 1906.69 / 1906.69 Output Total 4950 / 5450 4275 / 5375 1750 / 1750 Balance -1340.89 / -1665.99 -931.09 / -1961.38 156.69 / 156.69 Medical Nutrition Assessment Dietitian: Malnutrition Criteria Met Start: 06/30/22 10:32 Freq: Status: Active Protocol: Document 07/10/22 11:51 EMERSON (Rec: 07/10/22 11:51 EMERSON [id number]) Nutrition Malnutrition Evidence of Malnutrition Exists Yes Malnutrition (severe): Chronic Evidenced By Weight Loss (Severe),Physical Changes (Moderate) Clinical Problem Chronic Disease or Condition Related Malnutrition Etiology severe, chronic malnutrition related to predicted inadequate oral intake Signs/Symptoms as evidenced by wt loss of 23. 6#/14% x 9 months, moderate muscle wasting/fat loss in orbital, temporal, clavicle, and acromion areas per physical exam Status Active Problem Recommendation Dietitian Recommendations/Changes NPO while intubated; Resume via PEG as appropriate- Vital AF 1.2 at goal rate of 55mL/hour w/ 100mL H2O flush every 4 hours to provide 1584 calories, 99 g protein, and 1670mL total fluid/day. Lab / Micro Data Result Diagrams: 07/10/22 03:40 07/10/22 03:40 Labs: Laboratory Results - last 24 hr 07/09/22 04:10: Diff Path Review Reviewed 07/10/22 03:40: WBC 19.9 H, RBC 3.44 L, Hgb 9.4 L, Hct 30.3 L, MCV 88.1, MCH 27.3, MCHC 31.0 L, RDW Std Deviation 57.4 H, RDW Coeff of Deonte 18.1 H, Plt Count 373, MPV 9.9, Immature Gran % (Auto) 1.100 H, Neut % (Auto) 79.8 H, Lymph % (Auto) 11.3 L, Sequoyah % (Auto) 7.3, Eos % (Auto) 0.2, Baso % (Auto) 0.3, Absolute Neuts (auto) 15.9 H, Absolute Lymphs (auto) 2.24, Nucleated RBC % 0.1 07/10/22 03:40: Sodium 144, Potassium 3.6, Chloride 105, Carbon Dioxide 31.0, Anion Gap 8, BUN 21 H, Creatinine 0.64, Estim Creat Clear Calc 45.16, Est GFR (MDRD) Af Amer 119, Est GFR (MDRD) Non-Af 99, BUN/Creatinine Ratio 33.0 H, Glucose 142 H, Calcium 8.5 07/10/22 03:40: Total Creatine Kinase 141, Triglycerides 164 Micro: Microbiology 07/03/22 03:10 Sputum, Induced/Lukens Gram Stain - Final 07/03/22 03:10 Sputum, Induced/Lukens Respiratory Culture - Final Culture exhibits no growth. 06/29/22 23:15 Blood Culture (Wb) - Anticubital Right Blood Culture - Final No growth in 5 days. 06/29/22 22:48 Blood Culture (Wb) - Anticubital Right Blood Culture - Final No growth in 5 days. 06/30/22 02:25 Sputum, Tracheal Aspirate Gram Stain - Final 06/30/22 02:25 Sputum, Tracheal Aspirate Respiratory Culture - Final 06/29/22 23:25 Urine Catheter - Fortune Urine Culture - Final Escherichia coli 06/30/22 02:35 Mucosa - Nasopharyngeal Respiratory Panel (PCR) - Final 06/29/22 23:30 Nasal Secretion SARS-CoV-2 & FLU Antigen (Rapid) - Final Radiography Diagnostic Testing: Radiology Impression Chest X-Ray 07/10/22 05:55 IMPRESSION: There has been no significant change in since the previous study. Electronically Signed: Peter De Guzman MD at 6:29 EST , Physical Exam Narrative General: Alert, intubated and mechanically ventilated HEENT: Atraumatic, PERRLA, EOMI, Normocephalic Oral: Moist Mucosa Neck: Supple, No JVD Lungs: Diminished, Normal air movement, No rhonchi, No wheeze, No rales Cardiovascular: Regular rate, Regular Rhythm, Normal S1, Normal S2, No murmurs Abdomen: Soft, Non Tender, Non-Distended, No Hepato-splenomegaly Extremities: Edema, Capillary Refill Less than 3 Seconds Skin: No rashes, No breakdown Musculoskeletal: No Tenderness to Palpation of Joints or Extremities Neurological: Moves all extremities, follows simple commands Psych/Mental Status: Anxious Assessment & Plan Assessment/Plan (1) S/P percutaneous endoscopic gastrostomy (PEG) tube placement: PLAN: Her PEG tube is functioning without any problem. There is no symptoms of bleeding or high residual. Recommend to continue to use PEG without any re strictions. Charges/Coding Visit Charges Inpatient E&M: 55883 Subs Hosp L2
[2022-07-10] MEDS: Potassium Chloride Oral Soln 20 MEQ/15 ML UDC 40 MEQ PO (21:16)
[2022-07-10] MEDS: Polyethylene Glycol 3350 17 GM PACKET GT (21:16)
[2022-07-10] MEDS: Senna/Docusate Sodium 1 Tablet 2 TABLET GT (21:17)
[2022-07-11] VITALS (37 sets, daily range): BP systolic 96–135; BP diastolic 45–85; PULSE 96–126; RESP 14–29; TEMP 37.6–38.2; O2SAT 94–100
[2022-07-11] MEDS: Acetaminophen 650 MG/20 ML UDC GT ×4 (00:04→21:51)
[2022-07-11] MEDS: oxyCODONE 5 MG Tablet GT ×2 (00:04→21:51)
[2022-07-11] MEDS: Ipratropium/Albuterol Sulfate 3 ML AMPUL.NEB INHALATION ×4 (01:56→19:00)
[2022-07-11] MEDS: Phenytoin Na 100 MG/2 ML Vial IV ×3 (05:49→21:34)
[2022-07-11] MEDS: Hydrocortisone Sod Succinate 100 MG/2 ML Vial IV ×2 (05:49→21:36)
[2022-07-11 05:55] LABS: Absolute Lymphocyte Count 1.96 X10^3/uL (0.83-4.51); Absolute Neutrophil Count 11.5 X10^3/uL (2.0-7.7); Basophil# 0.04 X10^3/uL; Basophil% 0.3 % (0-1); Eosinophil# 0.08 X10^3/uL; Eosinophils% 0.5 % (0-5); Hematocrit 29.6 % (37-47); Lymphocyte # 1.96 X10^3/ul (0.83-4.51); Lymphocyte % 13.4 % (19-41); Mean Corp Hgb Conc 30.4 g/dL (32-36); Mean Corpuscular Hgb 27.4 pg (27.0-32.0); Mean Corpuscular Volume 90.2 fL (81-99); Mean Platelet Vol. 10.2 fl (6.2-12.0); Monocyte# 0.89 X10^3/uL; Monocyte% 6.1 % (0-10); NRBC Flagged by Analyzer 0 % (0-5); Neutrophil # 11.54 X10^3/uL (2.7-7.7); Neutrophil % 78.5 % (47-70); Platelet Count 266 K/mm3 (150-450); RBC Distribution Width CV 18.1 % (11.6-14.6); RBC Distribution Width SD 58.2 fl (35.1-43.9); Red Blood Count 3.28 M/mm3 (4.2-5.4); White Blood Count 14.7 K/mm3 (4.4-11.0)
[2022-07-11 06:10] LABS: Anion Gap 7 (5-15); BUN 19 mg/dL (7-18); BUN/Creat Ratio 34.4 RATIO (10-20); Calcium,Total 8.3 mg/dL (8.5-10.1); Chloride 110 mmol/L (98-107); Creatinine, Serum 0.55 mg/dL (0.55-1.02); EST Glomerular Filtration Rate 116 mL/min (>60); Est Glom Filt Rate - Afr Amer 141 mL/min (>60); Estimated Creatinine Clearance 45.16 ml/min; Glucose 107 mg/dL (74-106); Sodium Level 145 mmol/L (136-145)
[2022-07-11] MEDS: Potassium Chloride Oral Soln 20 MEQ/15 ML UDC 40 MEQ GT (06:49)
--- NOTE | 2022-07-11 07:31 | PN.CC_ITS ---
Assessment & Plan Assessment/Plan (1) Acute and chronic respiratory failure with hypercapnia: PLAN: Plan RECOMMENDATIONS: 1. Continue assist-control mode of mechanical ventilation. Wean FiO2/PEEP for saturations greater than 90%. 2. Resume tube feeds 3. Continue antiepileptics, along with seizure precautions. 4. Decrease stress dose steroids 5. Electrolyte repletion as indicated 6. Continue scheduled bronchodilators and antimicrobials. 7. Continue appropriate ICU prophylaxis. 8. Increase Seroquel to help with impulsivity IMPRESSIONS: 1. Acute on chronic combined respiratory failure The patient has known end-stage COPD and chronic hypoxemic respiratory failure, along with baseline CO2 retention. She has questionable compliance with her outpatient noninvasive ventilator. I do suspect that her acute respiratory decompensation may have been triggered by a postictal state and/or polypharmacy effects. The patient actually improved from a respiratory perspective and was extubated on July 02. However, she apparently decompensated overnight after receiving a one-time dose of Vistaril. Potential etiologies for her decompensation overnight include medication induced respiratory depression versus seizures and subsequent postictal state. The patient was reintubated on July 03. FiO2 will be weaned for saturations greater than 90%. Patient appears to be medically optimized at this time. Patient has successfully received a trach and PEG. Anticipate stabilization for the next 24 to 48 hours before any trials are completed.. 2. Encephalopathy Improving, but remains impulsive. Likely metabolic in the setting of CO2 retention and/or related to postictal state in the setting of new onset seizure activity. In addition, there is some question as to whether possible polypharmacy may have also been contributing, as the patient was positive for benzodiazepines and opiates on her toxicology screen. Plan to continue current antiepileptics along with seizure precautions and as needed Ativan. Patient will be increased on Seroquel 3. Multifactorial shock/relative adrenal insufficiency The patient initially developed hypotension as a consequence of sedative medication use. Therefore, her hemodynamic instability may be the consequence of the propofol and fentanyl currently being utilized to keep her comfortable while intubated. Alternatively, sepsis related to gram-negative UTI is likely also contributing. Repeat cultures have been unrevealing. Patient has been able to be taken off of pressors following discontinuation of sedative medications. 4. E. coli UTI Completed course of antibiotics. 5. History of end-stage COPD/chronic hypoxemic respiratory failure/ obstructive sleep apnea/frequent COPD exacerbations The patient has a known history of end-stage COPD with questionable outpatient medical compliance. The patient has had compliance issues in the past related to her supplemental oxygen use and noninvasive ventilator utilization. She will be maintained on scheduled bronchodilators for now. Management as noted above. 6. History of hemorrhagic CVA/former tobacco dependency/history of cardiomyopathy/anxiety/depression Complicates care, management, recovery and prognosis. Okay to continue tube feeds today from my perspective. Replete potassium as indicated. See orders. TIME: 36 minutes of critical care time, independent of procedures, was spent addressing the patient's acute on chronic combined respiratory failure, encephalopathy, multifactorial shock, review of all data and collaboration with the care team. Subjective Subjective Patient did well overnight. Patient did have a tracheostomy placed yesterday and tolerating well. Patient has been impulsive at times requiring redirection. Patient has been taken off of propofol, fentanyl and Precedex. Patient has been off of Levophed since midnight. Objective Data Objective Data Vital Signs: Vital Signs Temp Pulse Resp BP Pulse Ox O2 Del Method O2 Flow Rate 37.7 C H 112 H 24 H 127/76 H 100 Mechanical Ventilator 28 07/11/22 05:00 07/11/22 07:00 07/11/22 07:00 07/11/22 07:00 07/11/22 07:00 07/11/22 07:00 07/11/22 03:42 FiO2 28 07/11/22 07:00 Oxygen Flow Rate (L/min) 28 Oxygen Delivery Method Mechanical Ventilator Weight: 66.1 kg Body Mass Index (BMI) 22.9 Intake & Output: Intake and Output for Last 24 Hours 07/09/22 07/10/22 07/11/22 23:59 23:59 23:59 Intake Total 3343.91 / 3413.62 2122.62 / 2137.02 22.68 / 22.68 Output Total 4275 / 5375 2150 / 2150 250 / 250 Balance -931.09 / -1961.38 -27.38 / -12.98 -227.32 / -227.32 Medical Nutrition Assessment Dietitian: Malnutrition Criteria Met Start: 06/30/22 10:32 Freq: Status: Active Protocol: Document 07/10/22 11:51 EMERSON (Rec: 07/10/22 11:51 EMERSON [id number]) Nutrition Malnutrition Evidence of Malnutrition Exists Yes Malnutrition (severe): Chronic Evidenced By Weight Loss (Severe),Physical Changes (Moderate) Clinical Problem Chronic Disease or Condition Related Malnutrition Etiology severe, chronic malnutrition related to predicted inadequate oral intake Signs/Symptoms as evidenced by wt loss of 23. 6#/14% x 9 months, moderate muscle wasting/fat loss in orbital, temporal, clavicle, and acromion areas per physical exam Status Active Problem Recommendation Dietitian Recommendations/Changes NPO while intubated; Resume via PEG as appropriate- Vital AF 1.2 at goal rate of 55mL/hour w/ 100mL H2O flush every 4 hours to provide 1584 calories, 99 g protein, and 1670mL total fluid/day. Lab / Micro Data Attestation: I reviewed the patient's lab results. Result Diagrams: 07/11/22 05:35 07/11/22 05:35 Labs: Laboratory Results - last 24 hr 07/09/22 04:10: Diff Path Review Reviewed 07/11/22 05:35: WBC 14.7 H, RBC 3.28 L, Hgb 9.0 L, Hct 29.6 L, MCV 90.2, MCH 27.4, MCHC 30.4 L, RDW Std Deviation 58.2 H, RDW Coeff of Deonte 18.1 H, Plt Count 266, MPV 10.2, Immature Gran % (Auto) 1.200 H, Neut % (Auto) 78.5 H, Lymph % (Auto) 13.4 L, Hawkins % (Auto) 6.1, Eos % (Auto) 0.5, Baso % (Auto) 0.3, Absolute Neuts (auto) 11.5 H, Absolute Lymphs (auto) 1.96, Nucleated RBC % 0 07/11/22 05:35: Sodium 145, Potassium 3.0 L, Chloride 110 H, Carbon Dioxide 28.0, Anion Gap 7, BUN 19 H, Creatinine 0.55, Estim Creat Clear Calc 45.16, Est GFR (MDRD) Af Amer 141, Est GFR (MDRD) Non-Af 116, BUN/Creatinine Ratio 34.4 H, Glucose 107 H, Calcium 8.3 L Micro: Microbiology 07/03/22 03:10 Sputum, Induced/Lukens Gram Stain - Final 07/03/22 03:10 Sputum, Induced/Lukens Respiratory Culture - Final Culture exhibits no growth. 12/26/22 23:15 Blood Culture (Wb) - Anticubital Right Blood Culture - Final No growth in 5 days. 06/29/22 22:48 Blood Culture (Wb) - Anticubital Right Blood Culture - Final No growth in 5 days. 06/30/22 02:25 Sputum, Tracheal Aspirate Gram Stain - Final 06/30/22 02:25 Sputum, Tracheal Aspirate Respiratory Culture - Final 06/29/22 23:25 Urine Catheter - Fortune Urine Culture - Final Escherichia coli 06/30/22 02:35 Mucosa - Nasopharyngeal Respiratory Panel (PCR) - Final 06/29/22 23:30 Nasal Secretion SARS-CoV-2 & FLU Antigen (Rapid) - Final Physical Exam Const alert Constitutional Narrative: Anasarca slowly improving. RASS +1. General Appearance: intubated and patient mechanically ventilated HEENT normocephalic and head/scalp atraumatic HEENT Narrative: No leak noted Mouth: endotracheal tube in place Eyes PERRL and EOMs intact bilaterally Eyes Narrative: Does track and shake head appropriately Neck supple Neck Narrative: Tracheostomy with significant clear secretions General: trachea midline Chest Chest Narrative: Increased AP diameter Resp Auscultation: diminished lung sounds; Negative for rales, rhonchi or wheezes Cardio regular rate, regular rhythm, S1 normal heart sound, S2 normal heart sound, no murmurs, no rub and no gallops GI normal to inspection, nondistended, normoactive bowel sounds Inspection: GI tube present Extremity Extremity Narrative: 1+ anasarca noted General Extremity: edema bilateral (Improved.) Skin no rashes or lesions noted Neuro Neuro Narrative: Alert and able to follow simple commands. Psych Activity / Motor Behavior: restless Mood & Affect: anxious Charges/Coding Procedures Hospitalists Procedures: 08507 Critial Care 1st Hr
[2022-07-11] MEDS: QUEtiapine 100 MG Tablet GT ×2 (08:00→21:36)
[2022-07-11] MEDS: Potassium Chloride Oral Soln 20 MEQ/15 ML UDC 40 MEQ PO ×2 (08:00→21:34)
[2022-07-11] MEDS: Senna/Docusate Sodium 1 Tablet 2 TABLET GT ×2 (08:00→21:35)
--- NOTE | 2022-07-11 08:50 | PN.HOSP_ITS ---
Subjective Subjective Had a trach placed yesterday, no issues overnight. We are slowly weaning off her sedation and her pressor support Objective Data Objective Data Vital Signs: Vital Signs Temp Pulse Resp BP Pulse Ox O2 Del Method O2 Flow Rate 99.8 F H 117 H 27 H 127/76 H 97 Mechanical Ventilator 28 07/11/22 05:00 07/11/22 07:21 07/11/22 07:21 07/11/22 07:00 07/11/22 07:21 07/11/22 07:00 07/11/22 03:42 FiO2 28 07/11/22 07:21 Oxygen Flow Rate (L/min) 28 Oxygen Delivery Method Mechanical Ventilator Weight: 145 lb 11.609 oz Body Mass Index (BMI) 22.9 Intake & Output: Intake and Output for Last 24 Hours 07/10/22 07/11/22 07/12/22 03:59 03:59 03:59 Intake Total 3158.57 / 3200.83 1506.29 / 1506.29 Output Total 4875 / 4875 1050 / 1050 250 / 250 Balance -1716.43 / -1674.17 456.29 / 456.29 -250 / -250 Medical Nutrition Assessment Dietitian: Malnutrition Criteria Met Start: 06/30/22 10:32 Freq: Status: Active Protocol: Document 07/10/22 11:51 EMERSON (Rec: 07/10/22 11:51 EMERSON [id number]) Nutrition Malnutrition Evidence of Malnutrition Exists Yes Malnutrition (severe): Chronic Evidenced By Weight Loss (Severe),Physical Changes (Moderate) Clinical Problem Chronic Disease or Condition Related Malnutrition Etiology severe, chronic malnutrition related to predicted inadequate oral intake Signs/Symptoms as evidenced by wt loss of 23. 6#/14% x 9 months, moderate muscle wasting/fat loss in orbital, temporal, clavicle, and acromion areas per physical exam Status Active Problem Recommendation Dietitian Recommendations/Changes NPO while intubated; Resume via PEG as appropriate- Vital AF 1.2 at goal rate of 55mL/hour w/ 100mL H2O flush every 4 hours to provide 1584 calories, 99 g protein, and 1670mL total fluid/day. Lab / Micro Data Result Diagrams: 07/11/22 05:35 07/11/22 05:35 Labs: Laboratory Results - last 24 hr 07/09/22 04:10: Diff Path Review Reviewed 07/11/22 05:35: WBC 14.7 H, RBC 3.28 L, Hgb 9.0 L, Hct 29.6 L, MCV 90.2, MCH 27.4, MCHC 30.4 L, RDW Std Deviation 58.2 H, RDW Coeff of Deonte 18.1 H, Plt Count 266, MPV 10.2, Immature Gran % (Auto) 1.200 H, Neut % (Auto) 78.5 H, Lymph % (A uto) 13.4 L, [place] % (Auto) 6.1, Eos % (Auto) 0.5, Baso % (Auto) 0.3, Absolute Neuts (auto) 11.5 H, Absolute Lymphs (auto) 1.96, Nucleated RBC % 0 07/11/22 05:35: Sodium 145, Potassium 3.0 L, Chloride 110 H, Carbon Dioxide 28.0, Anion Gap 7, BUN 19 H, Creatinine 0.55, Estim Creat Clear Calc 45.16, Est GFR (MDRD) Af Amer 141, Est GFR (MDRD) Non-Af 116, BUN/Creatinine Ratio 34.4 H, Glucose 107 H, Calcium 8.3 L Micro: Microbiology 07/03/22 03:10 Sputum, Induced/Lukens Gram Stain - Final 07/03/22 03:10 Sputum, Induced/Lukens Respiratory Culture - Final Culture exhibits no growth. 06/29/22 23:15 Blood Culture (Wb) - Anticubital Right Blood Culture - Final No growth in 5 days. 06/29/22 22:48 Blood Culture (Wb) - Anticubital Right Blood Culture - Final No growth in 5 days. 06/30/22 02:25 Sputum, Tracheal Aspirate Gram Stain - Final 06/30/22 02:25 Sputum, Tracheal Aspirate Respiratory Culture - Final 06/29/22 23:25 Urine Catheter - Fortune Urine Culture - Final Escherichia coli 06/30/22 02:35 Mucosa - Nasopharyngeal Respiratory Panel (PCR) - Final 06/29/22 23:30 Nasal Secretion SARS-CoV-2 & FLU Antigen (Rapid) - Final Physical Exam Narrative General: Alert, intubated and mechanically ventilated HEENT: Atraumatic, PERRLA, EOMI, Normocephalic Oral: Moist Mucosa Neck: Supple, No JVD Lungs: Diminished, Normal air movement, No rhonchi, No wheeze, No rales Cardiovascular: Regular rate, Regular Rhythm, Normal S1, Normal S2, No murmurs Abdomen: Soft, Non Tender, Non-Distended, No Hepato-splenomegaly Extremities: Edema, Capillary Refill Less than 3 Seconds Skin: No rashes, No breakdown Musculoskeletal: No Tenderness to Palpation of Joints or Extremities Neurological: Moves all extremities, follows simple commands Psych/Mental Status: Anxious Assessment & Plan Assessment/Plan (1) Altered mental status: PLAN: Plan 1. Acute on chronic hypoxic respiratory failure from end-stage COPD and possible postictal versus polypharmacy with a toxic versus postictal encephalopathy/seizure disorder/shock unknown etiology ?Trach 07/10/2022, PEG tube on 07/09/2022 ?Discontinue sedation ? Continue with Lasix as needed and will continue with Keppra ?Discontinue pressor support, and will slowly decrease steroid doses ? Unsure as to the etiology of her shock could be due to adrenal deficiency we will continue to monitor and make adjustments, continue with hydrocortisone 2. Chronic systolic CHF with a history of Takotsubo's cardiomyopathy/CAD/HTN/history of CVAs ? Will hold blood pressure medication secondary to her hypotension and the need for Levophed ? Continue with Lasix for edema as needed ? She did have a recent transfer to [facility] in January 2022 for a hemorrhagic CVA, MRI does not show any recent CVA 3. Severe chronic protein calorie malnutrition ? Nutrition is monitoring 4. Acute cystitis ? This was due to E. coli ? She is completed antibiotics 5. Chronic anemia due to iron deficiency ? We will continue to monitor ? Continue with iron supplementation DVT: Lovenox Charges/Coding Visit Charges Inpatient E&M: 42475 Subs Hosp L2
[2022-07-11] MEDS: 0.9% Saline Lock 10 ML Syringe IV ×2 (09:59→15:16)
[2022-07-11] MEDS: Enoxaparin 40 MG/0.4 ML Syringe SC (09:59)
[2022-07-11] MEDS: Famotidine 200 MG/20 ML MDV 20 MG in 0.9% Normal Saline (Pres. free 8 ML 300 MG IV ×2 (10:00→21:35)
[2022-07-11] MEDS: Chlorhexidine 15 ML PO ×2 (10:07→21:33)
[2022-07-11] MEDS: Polyethylene Glycol 3350 17 GM PACKET GT ×2 (10:44→21:35)
[2022-07-11] MEDS: Ondansetron 4 MG/2 ML Vial IV (15:15)
[2022-07-11] MEDS: Vital AF 1.2 Cal Liquid 1,000 ML 55 ML GT (22:33)
[2022-07-12] VITALS (34 sets, daily range): BP systolic 90–143; BP diastolic 43–103; PULSE 91–128; RESP 14–29; TEMP 37.2–37.9; O2SAT 90–100
[2022-07-12 04:58] LABS: Absolute Lymphocyte Count 1.37 X10^3/uL (0.83-4.51); Absolute Neutrophil Count 12.5 X10^3/uL (2.0-7.7); Basophil# 0.05 X10^3/uL; Basophil% 0.3 % (0-1); Eosinophil# 0.07 X10^3/uL; Eosinophils% 0.5 % (0-5); Hematocrit 30.4 % (37-47); Hemoglobin 8.8 g/dL (12.0-15.0); Lymphocyte # 1.37 X10^3/ul (0.83-4.51); Lymphocyte % 9.1 % (19-41); Mean Corp Hgb Conc 28.9 g/dL (32-36); Mean Corpuscular Hgb 27.3 pg (27.0-32.0); Mean Corpuscular Volume 94.4 fL (81-99); Mean Platelet Vol. 10.2 fl (6.2-12.0); Monocyte# 0.83 X10^3/uL; Monocyte% 5.5 % (0-10); NRBC Flagged by Analyzer 0 % (0-5); Neutrophil # 12.51 X10^3/uL (2.7-7.7); Neutrophil % 82.9 % (47-70); Platelet Count 331 K/mm3 (150-450); RBC Distribution Width CV 18.8 % (11.6-14.6); RBC Distribution Width SD 62.9 fl (35.1-43.9); Red Blood Count 3.22 M/mm3 (4.2-5.4); White Blood Count 15.1 K/mm3 (4.4-11.0)
[2022-07-12 05:30] LABS: ALB/GLOB Ratio 0.6 RATIO (0.9-2.4); AST(SGOT) 25 U/L (15-37); Alanine Aminotransfer ALT/SGPT 46 U/L (13-56); Albumin, Serum 2.3 g/dL (3.2-5.0); Alkaline Phosphatase 75 U/L (45-117); Anion Gap 6 (5-15); BUN 18 mg/dL (7-18); BUN/Creat Ratio 35.5 RATIO (10-20); Calcium,Total 8.4 mg/dL (8.5-10.1); Chloride 112 mmol/L (98-107); Creatinine, Serum 0.51 mg/dL (0.55-1.02); EST Glomerular Filtration Rate 128 mL/min (>60); Est Glom Filt Rate - Afr Amer 155 mL/min (>60); Estimated Creatinine Clearance 45.16 ml/min; Glucose 133 mg/dL (74-106); Potassium 3.8 mmol/L (3.5-5.1); Protein, Total 6.3 g/dL (6.4-8.2); Sodium Level 143 mmol/L (136-145)
[2022-07-12] MEDS: 0.9% Saline Lock 10 ML Syringe IV ×4 (06:19→13:47)
[2022-07-12] MEDS: CHLORHEXIDINE GLUC 2% CLOTH 1 EACH TOWELETTE TOPICAL (06:19)
[2022-07-12] MEDS: Phenytoin Na 100 MG/2 ML Vial IV ×3 (06:21→20:31)
[2022-07-12] MEDS: Ipratropium/Albuterol Sulfate 3 ML AMPUL.NEB INHALATION ×3 (06:54→19:12)
[2022-07-12] MEDS: Acetaminophen 650 MG/20 ML UDC GT ×3 (07:47→20:32)
[2022-07-12] MEDS: oxyCODONE 5 MG Tablet GT ×3 (07:47→20:31)
--- NOTE | 2022-07-12 07:51 | PN.CC_ITS ---
Assessment & Plan Assessment/Plan (1) Acute and chronic respiratory failure with hypercapnia: PLAN: Plan RECOMMENDATIONS: 1. Continue assist-control mode of mechanical ventilation. Wean FiO2/PEEP for saturations greater than 90%. 2. Continue tube feeds 3. Continue antiepileptics, along with seizure precautions. 4. Discontinue stress dose steroids 5. Electrolyte repletion as indicated 6. Continue scheduled bronchodilators and antimicrobials. 7. Continue appropriate ICU prophylaxis. 8. Increase Seroquel to help with impulsivity 9. Potentially start trials in the next 24 to 48 hours IMPRESSIONS: 1. Acute on chronic combined respiratory failure The patient has known end-stage COPD and chronic hypoxemic respiratory failure, along with baseline CO2 retention. She has questionable compliance with her outpatient noninvasive ventilator. I do suspect that her acute respiratory decompensation may have been triggered by a postictal state and/or polypharmacy effects. The patient actually improved from a respiratory perspective and was extubated on July 02. However, she apparently decompensated overnight after receiving a one-time dose of Vistaril. Potential etiologies for her decompensation overnight include medication induced respiratory depression versus seizures and subsequent postictal state. The patient was reintubated on July 03. FiO2 will be weaned for saturations greater than 90%. Patient appears to be medically optimized at this time. Patient has successfully received a trach and PEG. Potentially start trach mask trials tomorrow. Encourage discussion with patient and daughter on whether long-term mechanical ventilation is appropriate. 2. Encephalopathy Improving, but remains impulsive. Likely metabolic in the setting of CO2 retention and/or related to postictal state in the setting of new onset seizure activity. In addition, there is some question as to whether possible polypharmacy may have also been contributing, as the patient was positive for benzodiazepines and opiates on her toxicology screen. Plan to continue current antiepileptics along with seizure precautions and as needed Ativan. Patient will be increased on Seroquel 3. Multifactorial shock/relative adrenal insufficiency The patient initially developed hypotension as a consequence of sedative medication use. Therefore, her hemodynamic instability may be the consequence of the propofol and fentanyl currently being utilized to keep her comfortable while intubated. Alternatively, sepsis related to gram-negative UTI is likely also contributing. Repeat cultures have been unrevealing. Patient's blood pressure has been doing well. We will discontinue stress dose steroids. 4. E. coli UTI Completed course of antibiotics. 5. History of end-stage COPD/chronic hypoxemic respiratory failure/obstructive sleep apnea/frequent COPD exacerbations The patient has a known history of end-stage COPD with questionable outpatient medical compliance. The patient has had compliance issues in the past related to her supplemental oxygen use and noninvasive ventilator u tilization. She will be maintained on scheduled bronchodilators for now. Management as noted above. 6. History of hemorrhagic CVA/former tobacco dependency/history of cardiomyopathy/anxiety/depression Complicates care, management, recovery and prognosis. Okay to continue tube feeds today from my perspective. Replete potassium as indicated. See orders. Subjective Subjective Patient did okay overnight. Patient has been reporting some abdominal pain on my evaluation this morning. Patient was very impulsive overnight per nursing. Peritracheal secretions reportedly are improving. Objective Data Objective Data Vital Signs: Vital Signs Temp Pulse Resp BP Pulse Ox O2 Del Method O2 Flow Rate 37.4 C H 110 H 18 141/69 H 97 Mechanical Ventilator 35 07/12/22 06:00 07/12/22 06:00 07/12/22 06:00 07/12/22 06:00 07/12/22 06:00 07/12/22 06:00 07/12/22 05:30 FiO2 35 07/12/22 06:00 Oxygen Flow Rate (L/min) 35 Oxygen Delivery Method Mechanical Ventilator Weight: 64.5 kg Body Mass Index (BMI) 22.9 Intake & Output: Intake and Output for Last 24 Hours 07/10/22 07/11/22 07/12/22 23:59 23:59 23:59 Intake Total 2122.62 / 2137.02 1862.68 / 1962.68 100 / 100 Output Total 2150 / 2150 1075 / 1075 300 / 300 Balance -27.38 / -12.98 787.68 / 887.68 -200 / -200 Medical Nutrition Assessment Dietitian: Malnutrition Criteria Met Start: 06/30/22 10: 32 Freq: Status: Active Protocol: Document 07/11/22 10:08 EMERSON (Rec: 07/11/22 10:08 EMERSON [id number]) Nutrition Malnutrition Evidence of Malnutrition Exists Yes Malnutrition (severe): Chronic Evidenced By Weight Loss (Severe),Physical Changes (Moderate) Clinical Problem Chronic Disease or Condition Related Malnutrition Etiology severe, chronic malnutrition related to predicted inadequate oral intake Signs/Symptoms as evidenced by wt loss of 23. 6#/14% x 9 months, moderate muscle wasting/fat loss in orbital, temporal, clavicle, and acromion areas per physical exam Status Active Problem Recommendation Dietitian Recommendations/Changes NPO while intubated; Advance TF via PEG as appropriate- Vital AF 1.2 at goal rate of 55mL/hour w/ 100mL H2O flush every 4 hours to provide 1584 calories, 99 g protein, and 1670mL total fluid/day. Lab / Micro Data Attestation: I reviewed the patient's lab results. Result Diagrams: 07/12/22 04:50 07/12/22 04:50 Labs: Laboratory Results - last 24 hr 07/12/22 04:50: WBC 15.1 H, RBC 3.22 L, Hgb 8.8 L, Hct 30.4 L, MCV 94.4, MCH 27.3, MCHC 28.9 L, RDW Std Deviation 62.9 H, RDW Coeff of Deonte 18.8 H, Plt Count 331, MPV 10.2, Immature Gran % (Auto) 1.700 H, Neut % (Auto) 82.9 H, Lymph % (Auto) 9.1 L, [place] % (Auto) 5.5, Eos % (Auto) 0.5, Baso % (Auto) 0.3, Absolute Neuts (auto) 12.5 H, Absolute Lymphs (auto) 1.37, Nucleated RBC % 0 07/12/22 04:50: Sodium 143, Potassium 3.8, Chloride 112 H, Carbon Dioxide 25.0, Anion Gap 6, BUN 18, Creatinine 0.51 L, Estim Creat Clear Calc 45.16, Est GFR (MDRD) Af Amer 155, Est GFR (MDRD) Non-Af 128, BUN/Creatinine Ratio 35.5 H, Glucose 133 H, Calcium 8.4 L, Total Bilirubin 0.30, AST 25, ALT 46, Alkaline Phosphatase 75, Total Protein 6.3 L, Albumin 2.3 L, Globulin 4.0, Albumin/Globulin Ratio 0.6 L Micro: Microbiology 07/03/22 03:10 Sputum, Induced/Lukens Gram Stain - Final 07/03/22 03:10 Sputum, Induced/Lukens Respiratory Culture - Final Culture exhibits no growth. 06/29/22 23:15 Blood Culture (Wb) - Anticubital Right Blood Culture - Final No growth in 5 days. 06/29/22 22:48 Blood Culture (Wb) - Anticubital Right Blood Culture - Final No growth in 5 days. 06/30/22 02:25 Sputum, Tracheal Aspirate Gram Stain - Final 06/30/22 02:25 Sputum, Tracheal Aspirate Respiratory Culture - Final 06/29/22 23:25 Urine Catheter - Fortune Urine Culture - Final Escherichia coli 06/30/22 02:35 Mucosa - Nasopharyngeal Respiratory Panel (PCR) - Final 06/29/22 23:30 Nasal Secretion SARS-CoV-2 & FLU Antigen (Rapid) - Final Physical Exam Const alert Constitutional Narrative: Anasarca slowly improving. RASS +1. General Appearance: patient mechanically ventilated HEENT normocephalic and head/scalp atraumatic HEENT Narrative: Tracheostomy is clean, dry and intact Eyes PERRL and EOMs intact bilaterally Eyes Narrative: Does track and shake head appropriately Neck supple Neck Narrative: Tracheostomy with improved clear secretions General: trachea midline Chest Chest Narrative: Increased AP diameter Resp Auscultation: diminished lung sounds; Negative for rales, rhonchi or wheezes Cardio regular rate, regular rhythm, S1 normal heart sound, S2 normal heart sound, no murmurs, no rub and no gallops GI normal to inspection, nondistended, normoactive bowel sounds GI Narrative: PEG is clean, dry and intact Inspection: GI tube present Extremity Extremity Narrative: 1+ anasarca noted General Extremity: edema bilateral (Improved.) Skin no rashes or lesions noted Neuro Neuro Narrative: Alert and able to follow simple commands. Psych Psych Narrative: More appropriately interactive today. Activity / Motor Behavior: restless Mood & Affect: anxious Charges/Coding Visit Charges Inpatient E&M: 37785 Subs Hosp L3
[2022-07-12] MEDS: Potassium Chloride Oral Soln 20 MEQ/15 ML UDC 40 MEQ PO ×2 (09:24→20:30)
[2022-07-12] MEDS: Furosemide 10 MG/ML Liquid 20 MG GT ×2 (09:24→18:23)
[2022-07-12] MEDS: Senna/Docusate Sodium 1 Tablet 2 TABLET GT ×2 (09:25→20:31)
[2022-07-12] MEDS: Enoxaparin 40 MG/0.4 ML Syringe SC (09:25)
[2022-07-12] MEDS: Polyethylene Glycol 3350 17 GM PACKET GT (09:25)
[2022-07-12] MEDS: QUEtiapine 100 MG Tablet 150 MG GT ×2 (09:26→20:30)
[2022-07-12] MEDS: Famotidine 200 MG/20 ML MDV 20 MG in 0.9% Normal Saline (Pres. free 8 ML 300 MG IV ×2 (09:29→20:32)
--- NOTE | 2022-07-12 10:07 | PN.HOSP_ITS ---
Subjective Subjective No issues overnight Objective Data Objective Data Vital Signs: Vital Signs Temp Pulse Resp BP Pulse Ox O2 Del Method O2 Flow Rate 99.3 F H 109 H 24 H 141/69 H 95 Mechanical Ventilator 35 07/12/22 06:00 07/12/22 09:43 07/12/22 09:43 07/12/22 06:00 07/12/22 09:43 07/12/22 07:45 07/12/22 07:45 FiO2 30 07/12/22 09:43 Oxygen Flow Rate (L/min) 35 Oxygen Delivery Method Mechanical Ventilator Weight: 142 lb 3.17 oz Body Mass Index (BMI) 22.9 Intake & Output: Intake and Output for Last 24 Hours 07/11/22 07/12/22 07/13/22 03:59 03:59 03:59 Intake Total 1506.29 / 1506.29 1940.00 / 1940.00 110 / 110 Output Total 1050 / 1050 1075 / 1075 300 / 300 Balance 456.29 / 456.29 865.00 / 865.00 -190 / -190 Medical Nutrition Assessment Dietitian: Malnutrition Criteria Met Start: 06/30/22 10:32 Freq: Status: Active Protocol: Document 07/12/22 09:29 EMERSON (Rec: 07/12/22 09:29 [facility] [id number]) Nutrition Malnutrition Evidence of Malnutrition Exists Yes Malnutrition (severe): Chronic Evidenced By Weight Loss (Severe),Physical Changes (Moderate) Clinical Problem Chronic Disease or Condition Related Malnutrition Etiology severe, chronic malnutrition related to predicted inadequate oral intake Signs/Symptoms as evidenced by wt loss of 23. 6#/14% x 9 months, moderate muscle wasting/fat loss in orbital, temporal, clavicle, and acromion areas per physical exam Status Active Problem Recommendation Dietitian Recommendations/Changes NPO while intubated; Continue TF via PEG as appropriate- Vital AF 1.2 at goal rate of 55mL/hour w/ 100mL H2O flush every 4 hours to provide 1584 calories, 99 g protein, and 1670mL total fluid/day. Lab / Micro Data Result Diagrams: 07/12/22 04:50 07/12/22 04:50 Labs: Laboratory Results - last 24 hr 07/12/22 04:50: WBC 15.1 H, RBC 3.22 L, Hgb 8.8 L, Hct 30.4 L, MCV 94.4, MCH 27.3, MCHC 28.9 L, RDW Std Deviation 62.9 H, RDW Coeff of Denote 18.8 H, Plt Count 331, MPV 10.2, Immature Gran % (Auto) 1.700 H, Neut % (Auto) 82.9 H, Lymph % (Auto) 9.1 L, [place] % (Auto) 5.5, Eos % (Auto) 0.5, Baso % (Auto) 0.3, Absolute Neuts (auto) 12.5 H, Absolute Lymphs (auto) 1.37, Nucleated RBC % 0 07/12/22 04:50: Sodium 143, Potassium 3.8, Chloride 112 H, Carbon Dioxide 25.0, Anion Gap 6, BUN 18, Creatinine 0.51 L, Estim Creat Clear Calc 45.16, Est GFR (MDRD) Af Amer 155, Est GFR (MDRD) Non-Af 128, BUN/Creatinine Ratio 35.5 H, Glucose 133 H, Calcium 8.4 L, Total Bilirubin 0.30, AST 25, ALT 46, Alkaline Phosphatase 75, Total Protein 6.3 L, Albumin 2.3 L, Globulin 4.0, Albumin/Globulin Ratio 0.6 L Micro: Microbiology 07/03/22 03:10 Sputum, Induced/Lukens Gram Stain - Final 07/03/22 03:10 Sputum, Induced/Lukens Respiratory Culture - Final Culture exhibits no growth. 06/29/22 23:15 Blood Culture (Wb) - Anticubital Right Blood Culture - Final No growth in 5 days. 06/29/22 22:48 Blood Culture (Wb) - Anticubital Right Blood Culture - Final No growth in 5 days. 06/30/22 02:25 Sputum, Tracheal Aspirate Gram Stain - Final 06/30/22 02:25 Sputum, Tracheal Aspirate Respiratory Culture - Final 06/29/22 23:25 Urine Catheter - Fortune Urine Culture - Final Escherichia coli 06/30/22 02:35 Mucosa - Nasopharyngeal Respiratory Panel (PCR) - Final 06/29/22 23:30 Nasal Secretion SARS-CoV-2 & FLU Antigen (Rapid) - Final Physical Exam Narrative General: Alert, trached and mechanically ventilated HEENT: Atraumatic, PERRLA, EOMI, Normocephalic Oral: Moist Mucosa Neck: Supple, No JVD Lungs: Diminished, Normal air movement, No rhonchi, No wheeze, No rales Cardiovascular: Regular rate, Regular Rhythm, Normal S1, Normal S2, No murmurs Abdomen: Soft, Non Tender, Non-Distended, No Hepato-splenomegaly Extremities: Edema, Capillary Refill Less than 3 Seconds Skin: No rashes, No breakdown Musculoskeletal: No Tenderness to Palpation of Joints or Extremities Neurological: Moves all extremities, follows simple commands Psych/Mental Status: Anxious Assessment & Plan Assessment/Plan (1) Altered mental status: PLAN: Plan 1. Acute on chronic hypoxic respiratory failure from end-stage COPD and possible postictal versus polypharmacy with a toxic versus postictal encephalopathy/seizure disorder/shock unknown etiology ?Trach 07/10/2022, PEG tube on 07/09/2022 ?Discontinue sedation ? Continue with Lasix as needed and will continue with Keppra ?Discontinue pressor support, will DC stress dose steroids ? Continue with tube feeds 2. Chronic systolic CHF with a history of Takotsubo's cardiomyopathy/CAD/HTN/history of CVAs ? Will hold blood pressure medication secondary to her hypotension and the need for Levophed ? Continue with Lasix for edema as needed ? She did have a recent transfer to [facility] in January 2022 for a hemorrhagic CVA, MRI does not show any recent CVA 3. Severe chronic protein calorie malnutrition ? Nutrition is monitoring 4. Acute cystitis ? This was due to E. coli ? She is completed antibiotics 5. Chronic anemia due to iron deficiency ? We will continue to monitor ? Continue with iron supplementation DVT: Lovenox Charges/Coding Visit Charges Inpatient E&M: 62024 Subs Hosp L2
--- NOTE | 2022-07-12 10:47 | NURSING ---
unable to undo CODE BLUE documentation from 07/05/22 for entry under wrong patient.
[2022-07-12] MEDS: Ondansetron 4 MG/2 ML Vial IV (11:04)
[2022-07-12] MEDS: Glycerin/Hypromellose/PEG400 15 ml Bottle 1 DRP EACH EYE (11:04)
--- NOTE | 2022-07-12 11:53 | RAD_ITS ---
EXAM: XR CHEST, 1 VIEW CLINICAL INDICATION: SOB TECHNIQUE: Frontal view of the chest. This report was created using [employer] report generation technology. COMPARISON: XR Chest dated 07/10/2022 FINDINGS: LUNGS AND PLEURAL SPACES: Improving bibasilar atelectasis. No pneumothorax. No effusion. HEART: Normal heart size. MEDIASTINUM: No mediastinal or hilar mass. BONES/JOINTS: No acute abnormality. SOFT TISSUES: Normal. TUBES, LINES AND DEVICES: Tracheostomy tube is now in place with tip 6.8 cm above the claude. Right peripherally inserted central catheter (PICC) tip in the distal superior vena cava. RAD/Chest 1 View (Portable) IMPRESSION: 1. Satisfactory tracheostomy tube placement. 2. Improving bibasilar atelectasis. Electronically Signed: Shailesh Braun MD at 13:31 EST ,
--- NOTE | 2022-07-12 11:55 | NURSING ---
After BM and linen change pt becoming dyspneic, increased work of breathing, sats dropped to 50's. Absent breathe sounds on Left. R.T. immediately called to bedside and lavaged/suctioned several times. Dr. Kelsey at bedside and ordered stat CXR.
[2022-07-12] MEDS: Vital AF 1.2 Cal Liquid 1,000 ML 55 ML GT (18:30)
[2022-07-13] VITALS (34 sets, daily range): BP systolic 83–151; BP diastolic 46–104; PULSE 91–144; RESP 14–36; TEMP 37.2–38.5; O2SAT 92–100
[2022-07-13] MEDS: Acetaminophen 650 MG/20 ML UDC GT ×2 (02:53→18:17)
[2022-07-13] MEDS: CHLORHEXIDINE GLUC 2% CLOTH 1 EACH TOWELETTE TOPICAL (02:53)
[2022-07-13] MEDS: oxyCODONE 5 MG Tablet GT (02:54)
[2022-07-13 03:50] LABS: Absolute Lymphocyte Count 1.92 X10^3/uL (0.83-4.51); Absolute Neutrophil Count 8.2 X10^3/uL (2.0-7.7); Basophil# 0.04 X10^3/uL; Basophil% 0.3 % (0-1); Eosinophil# 0.34 X10^3/uL; Eosinophils% 2.9 % (0-5); Hematocrit 28.3 % (37-47); Hemoglobin 8.9 g/dL (12.0-15.0); Lymphocyte # 1.92 X10^3/ul (0.83-4.51); Lymphocyte % 16.4 % (19-41); Mean Corp Hgb Conc 31.4 g/dL (32-36); Mean Corpuscular Hgb 28.5 pg (27.0-32.0); Mean Corpuscular Volume 90.7 fL (81-99); Mean Platelet Vol. 11.3 fl (6.2-12.0); Monocyte# 0.98 X10^3/uL; Monocyte% 8.4 % (0-10); NRBC Flagged by Analyzer 0 % (0-5); Neutrophil # 8.22 X10^3/uL (2.7-7.7); Platelet Count 304 K/mm3 (150-450); RBC Distribution Width CV 18.6 % (11.6-14.6); RBC Distribution Width SD 59.7 fl (35.1-43.9); Red Blood Count 3.12 M/mm3 (4.2-5.4); White Blood Count 11.7 K/mm3 (4.4-11.0)
[2022-07-13 04:08] LABS: Anion Gap 6 (5-15); BUN 17 mg/dL (7-18); BUN/Creat Ratio 35.7 RATIO (10-20); Calcium,Total 8.7 mg/dL (8.5-10.1); Chloride 110 mmol/L (98-107); Creatinine, Serum 0.48 mg/dL (0.55-1.02); EST Glomerular Filtration Rate 138 mL/min (>60); Est Glom Filt Rate - Afr Amer 167 mL/min (>60); Estimated Creatinine Clearance 45.16 ml/min; Glucose 113 mg/dL (74-106); Magnesium 2.1 mg/dL (1.6-2.6); Phosphorus 2.8 mg/dL (2.5-4.9); Potassium 3.8 mmol/L (3.5-5.1); Sodium Level 144 mmol/L (136-145)
[2022-07-13] MEDS: Phenytoin Na 100 MG/2 ML Vial IV ×3 (05:38→21:32)
[2022-07-13] MEDS: Glycerin/Hypromellose/PEG400 15 ml Bottle 1 DRP EACH EYE (05:50)
[2022-07-13] MEDS: Ipratropium/Albuterol Sulfate 3 ML AMPUL.NEB INHALATION ×3 (07:04→19:05)
--- NOTE | 2022-07-13 07:25 | PN.HOSP_ITS ---
Subjective Subjective Patient is a 66-year-old lady with prolonged hospital stay. Initially admitted with seizure-like activity followed by episode of unresponsiveness. Patient underwent trach on 07/10/2022 and PEG tube on 07/09/2022. Objective Data Objective Data Vital Signs: Vital Signs Temp Pulse Resp BP Pulse Ox O2 Del Method O2 Flow Rate 99.1 F 107 H 34 H 125/55 H 99 Mechanical Ventilator 30 07/13/22 07:00 07/13/22 07:04 07/13/22 07:04 07/13/22 07:00 07/13/22 07:04 07/13/22 07:00 07/13/22 04:00 FiO2 30 07/13/22 07:00 Oxygen Flow Rate (L/min) 30 Oxygen Delivery Method Mechanical Ventilator Weight: 63.8 kg Body Mass Index (BMI) 22.9 Intake & Output: Intake and Output for Last 24 Hours 07/11/22 07/12/22 07/13/22 23:59 23:59 23:59 Intake Total 1862.68 / 1962.68 1830 / 1930 250 / 250 Output Total 1075 / 1075 800 / 1800 1800 / 1800 Balance 787.68 / 887.68 1030 / 130 -1550 / -1550 Medical Nutrition Assessment Dietitian: Malnutrition Criteria Met Start: 06/30/22 10:32 Freq: Status: Active Protocol: Document 07/12/22 09:29 EMERSON (Rec: 07/12/22 09:29 EMERSON [id number]) Nutrition Malnutrition Evidence of Malnutrition Exists Yes Malnutrition (severe): Chronic Evidenced By Weight Loss (Severe),Physical Changes (Moderate) Clinical Problem Chronic Disease or Condition Related Malnutrition Etiology severe, chronic malnutrition related to predicted inadequate oral intake Signs/Symptoms as evidenced by wt loss of 23. 6#/14% x 9 months, moderate muscle wasting/fat loss in orbital, temporal, clavicle, and acromion areas per physical exam Status Active Problem Recommendation Dietitian Recommendations/Changes NPO while intubated; Continue TF via PEG as appropriate- Vital AF 1.2 at goal rate of 55mL/hour w/ 100mL H2O flush every 4 hours to provide 1584 calories, 99 g protein, and 1670mL total fluid/day. Lab / Micro Data Result Diagrams: 07/13/22 03:30 07/13/22 03:30 Labs: Laboratory Results - last 24 hr 07/13/22 03:30: WBC 11.7 H, RBC 3.12 L, Hgb 8.9 L, Hct 28.3 L, MCV 90.7, MCH 28.5, MCHC 31.4 L D, RDW Std Deviation 59.7 H, RDW Coeff of Deonte 18.6 H, Plt Count 304, MPV 11.3, Immature Gran % (Auto) 2.000 H, Neut % (Auto) 70.0, Lymph % (Auto) 16.4 L, [place] % (Auto) 8.4, Eos % (Auto) 2.9, Baso % (Auto) 0.3, Absolute Neuts (auto) 8.2 H, Absolute Lymphs (auto) 1.92, Nucleated RBC % 0 07/13/22 03:30: Sodium 144, Potassium 3.8, Chloride 110 H, Carbon Dioxide 28.0, Anion Gap 6, BUN 17, Creatinine 0.48 L, Estim Creat Clear Calc 45.16, Est GFR (MDRD) Af Amer 167, Est GFR (MDRD) Non-Af 138, BUN/Creatinine Ratio 35.7 H, Glucose 113 H, Calcium 8.7, Phosphorus 2.8, Magnesium 2.1 Micro: Microbiology 07/03/22 03:10 Sputum, Induced/Lukens Gram Stain - Final 07/03/22 03:10 Sputum, Induced/Lukens Respiratory Culture - Final Culture exhibits no growth. 06/29/22 23:15 Blood Culture (Wb) - Anticubital Right Blood Culture - Final No growth in 5 days. 06/29/22 22:48 Blood Culture (Wb) - Anticubital Right Blood Culture - Final No growth in 5 days. 06/30/22 02:25 Sputum, Tracheal Aspirate Gram Stain - Final 06/30/22 02:25 Sputum, Tracheal Aspirate Respiratory Culture - Final 06/29/22 23:25 Urine Catheter - Fortune Urine Culture - Final Escherichia coli 06/30/22 02:35 Mucosa - Nasopharyngeal Respiratory Panel (PCR) - Final 06/29/22 23:30 Nasal Secretion SARS-CoV-2 & FLU Antigen (Rapid) - Final Radiography Diagnostic Testing: Radiology Impression Chest X-Ray 07/12/22 11:53 IMPRESSION: 1. Satisfactory tracheostomy tube placement. 2. Improving bibasilar atelectasis. Electronically Signed: Shailesh Braun MD at 13:31 EST , Physical Exam Narrative GENERAL: cooperative HEENT: Atraumatic; normocephalic trach collar in place EYES; Anicteric, Normal Conjunctiva NECK; supple, normal thyroid, RESPIRATORY: Diminished to auscultation CARDIOVASCULAR: Regular S1 S2, GI: soft, normoactive bowel sounds, PEG tube in place : No Renal angle tenderness; EXTREMITIES: No edema, no clubbing, MUSCULOSKELETAL: no muscle wasting NEURO: Awake; no lateralizing signs. SKIN: No Rash PSYCH; Flat affect Assessment & Plan Assessment/Plan (1) Altered mental status: PLAN: Plan Patient is a 66-year-old lady with prolonged hospital stay. Initially admitted with seizure-like activity followed by episode of unresponsiveness. Patient underwent trach on 07/10/2022 and PEG tube on 07/09/2022 1. Acute metabolic encephalopathy (present on admission) -etiology was not clear was thought to be due to combination of end-stage COPD as well as possible postictal state from seizure versus polypharmacy. As stated above patient had a protracted stay on the vent was treated and underwent PEG tube. Patient as of this a.m. is awake and communicative 2. Status post trach ? Following acute on chronic hypoxic respiratory failure due to above. Trach care deferred to pulmonary medicine. Did personally review chest x-ray performed on 07/12/2021 demonstrated bibasilar atelectasis 3. Dysphagia ? Secondary to prolonged stay on the vent patient underwent PEG tube placement on 07/09/2022. Tube feed as recommended by dietitian 4. Suspected seizure disorder -patient is on Keppra did continue 5. Severe protein calorie malnutrition ? Secondary to patient multiple medical comorbidities. Seen by dietitian recommendations reviewed 6. Acute cystitis with E. coli ? Patient completed appropriate antibiotic therapy 7. Acute on chronic systolic heart failure with history of Takotsubo cardiomyopathy ? Patient patient is is on Lasix continued. BMP ordered for a.m. to monitor response to Lasix 8. History of hemorrhagic CVA ? MRI on admission did demonstrate right subdural fluid collection and bilateral posterior cerebral encephalomalacia.. Requested for PT OT eval 9. Essential hypertension -Blood pressure stable. Currently not on any antihypertensives 10. Anemia - Secondary to chronic disorder monitoring H&H and transfuse if patient becomes symptomatic or hemoglobin falls below 7. CBC ordered for a.m. 11. DVT prophylaxis ? Patient is on SC Lovenox continued Time spent evaluating patient as well as discussion with other providers invo lved in patient's care and subsequent adjustment of therapy; 50-minute Charges/Coding Visit Charges Inpatient E&M: 84802 Subs Hosp L3
--- NOTE | 2022-07-13 07:33 | PCM.PN.INT ---
Assessment & Plan Assessment/Plan (1) Acute and chronic respiratory failure with hypercapnia: PLAN: Plan RECOMMENDATIONS: 1. Transition to trach collar supplemental oxygen. Wean FiO2 for saturations greater than 90%. 2. Continue tube feeds for now. 3. Continue antiepileptics, along with seizure precautions. 4. Continue scheduled bronchodilators. 5. Continue Seroquel as ordered. 6. Continue Lasix via G-tube as tolerated. 7. Mobilize patient as tolerated. 8. Disposition planning per case management. IMPRESSIONS: 1. Acute on chronic combined respiratory failure The patient has known end-stage COPD and chronic hypoxemic respiratory failure, along with baseline CO2 retention. She has questionable compliance with her outpatient noninvasive ventilator. I do suspect that her acute respiratory decompensation may have been triggered by a postictal state and/or polypharmacy effects. Due to an inability to wean from invasive mechanical ventilatory support, the patient underwent tracheostomy and PEG tube placement. She is doing well from a respiratory perspective. Plan to transition from mechanical ventilatory support to trach collar supplemental oxygen to maintain saturations at or above 90%. 2. Encephalopathy Improving, but remains impulsive. Likely metabolic in the setting of CO2 retention and/or related to postictal state in the setting of new onset seizure activity. In addition, there is some question as to whether possible polypharmacy may have also been contributing, as the patient was positive for benzodiazepines and opiates on her toxicology screen. Plan to continue current antiepileptics along with seizure precautions and as needed Ativan. The patient will be maintained on Seroquel as well. 3. History of end-stage COPD/chronic hypoxemic respiratory failure/obstructive sleep apnea/frequent COPD exacerbations The patient has a known history of end-stage COPD with questionable outpatient medical compliance. The patient has had compliance issues in the past related to her supplemental oxygen use and noninvasive ventilator utilization. She will be maintained on scheduled bronchodilators for now. Management as noted above. 4. History of hemorrhagic CVA/former tobacco dependency/history of cardiomyopathy/anxiety/depression Complicates care, management, recovery and prognosis. Okay to continue tube feeds today from my perspective. Physical therapy to work with the patient. Disposition planning per case management. This note was generated with RollCall ([email or web address])ation software. It may contain incorrect words, spelling, and punctuation that were not noted in checking the note before signing. Subjective Subjective The patient was seen and examined at the bedside this morning. Events from the last 24 hours have been reviewed. The patient is currently afebrile, hemodynamically stable and maintaining appropriate oxygen saturations on spontaneous mode mechanical ventilation with an FiO2 requirement of 30%. The patient is currently documented to be overall net +10 L for the hospitalization. Labs are stable this morning. Objective Data Objective Data The patient's most recent lab work, culture data and imaging studies have all been personally reviewed.? Surface echocardiogram from June 2021 demonstrated normal LV size with an ejection fraction of 37%.? MRI brain only showed a similar-appearing right subdural fluid collection and bilateral posterior cerebral encephalomalacia.? Respiratory viral panel was negative.? Urine culture was positive for E. coli. Vital Signs: Vital Signs Temp Pulse Resp BP Pulse Ox O2 Del Method O2 Flow Rate 99.1 F 107 H 34 H 125/55 H 99 Mechanical Ventilator 30 07/13/22 07:00 07/13/22 07:04 07/13/22 07:04 07/13/22 07:00 07/13/22 07:04 07/13/22 07:00 07/13/22 04:00 FiO2 30 07/13/22 07:00 Oxygen Flow Rate (L/min) 30 Oxygen Delivery Method Mechanical Ventilator Weight: 140 lb 10.479 oz Body Mass Index (BMI) 22.9 Intake & Output: Intake and Output for Last 24 Hours 07/11/22 07/12/22 07/13/22 23:59 23:59 23:59 Intake Total 1862.68 / 1962.68 1830 / 1930 250 / 250 Output Total 1075 / 1075 800 / 1800 1800 / 1800 Balance 787.68 / 887.68 1030 / 130 -1550 / -1550 Medical Nutrition Assessment Dietitian: Malnutrition Criteria Met Start: 06/30/22 10:32 Freq: Status: Active Protocol: Document 07/12/22 09:29 EMERSON (Rec: 07/12/22 09:[address] [facility] [id number]) Nutrition Malnutrition Evidence of Malnutrition Exists Yes Malnutrition (severe): Chronic Evidenced By Weight Loss (Severe),Physical Changes (Moderate) Clinical Problem Chronic Disease or Condition Related Malnutrition Etiology severe, chronic malnutrition related to predicted inadequate oral intake Signs/Symptoms as evidenced by wt loss of 23. 6#/14% x 9 months, moderate muscle wasting/fat loss in orbital, temporal, clavicle, and acromion areas per physical exam Status Active Problem Recommendation Dietitian Recommendations/Changes NPO while intubated; Continue TF via PEG as appropriate- Vital AF 1.2 at goal rate of 55mL/hour w/ 100mL H2O flush every 4 hours to provide 1584 calories, 99 g protein, and 1670mL total fluid/day. Lab / Micro Data Attestation: I reviewed the patient's lab results. Result Diagrams: 07/13/22 03:30 07/13/22 03:30 Labs: Laboratory Results - last 24 hr 07/13/22 03:30: WBC 11.7 H, RBC 3.12 L, Hgb 8.9 L, Hct 28.3 L, MCV 90.7, MCH 28.5, MCHC 31.4 L D, RDW Std Deviation 59.7 H, RDW Coeff of Deonte 18.6 H, Plt Count 304, MPV 11.3, Immature Gran % (Auto) 2.000 H, Neut % (Auto) 70.0, Lymph % (Auto) 16.4 L, [place] % (Auto) 8.4, Eos % (Auto) 2.9, Baso % (Auto) 0.3, Absolute Neuts (auto) 8.2 H, Absolute Lymphs (auto) 1.92, Nucleated RBC % 0 07/13/22 03:30: Sodium 144, Potassium 3.8, Chloride 110 H, Carbon Dioxide 28.0, Anion Gap 6, BUN 17, Creatinine 0.48 L, Estim Creat Clear Calc 45.16, Est GFR (MDRD) Af Amer 167, Est GFR (MDRD) Non-Af 138, BUN/Creatinine Ratio 35.7 H, Glucose 113 H, Calcium 8.7, Phosphorus 2.8, Magnesium 2.1 Micro: Microbiology 07/03/22 03:10 Sputum, Induced/Lukens Gram Stain - Final 07/03/22 03:10 Sputum, Induced/Lukens Respiratory Culture - Final Culture exhibits no growth. 06/29/22 23:15 Blood Culture (Wb) - Anticubital Right Blood Culture - Final No growth in 5 days. 06/29/22 22:48 Blood Culture (Wb) - Anticubital Right Blood Culture - Final No growth in 5 days. 06/30/22 02:25 Sputum, Tracheal Aspirate Gram Stain - Final 06/30/22 02:25 Sputum, Tracheal Aspirate Respiratory Culture - Final 06/29/22 23:25 Urine Catheter - Fortune Urine Culture - Final Escherichia coli 06/30/22 02:35 Mucosa - Nasopharyngeal Respiratory Panel (PCR) - Final 06/29/22 23:30 Nasal Secretion SARS-CoV-2 & FLU Antigen (Rapid) - Final Radiography Diagnostic Testing: Radiology Impression Chest X-Ray 07/12/22 11:53 IMPRESSION: 1. Satisfactory tracheostomy tube placement. 2. Improving bibasilar atelectasis. Electronically Signed: Shailesh Braun MD at 13:31 EST , Physical Exam Const alert and no apparent distress General Appearance: cooperative HEENT normocephalic and head/scalp atraumatic Eyes PERRL, EOMs intact bilaterally and conjunctivae normal Neck supple Neck Narrative: Stable. Tracheostomy site. Chest Chest Narrative: Increased AP diameter. Resp normal respiratory effort Auscultation: diminished lung sounds; Negative for rales, rhonchi or wheezes Cardio regular rate and regular rhythm GI normal to inspection, nondistended, normoactive bowel sounds Inspection: GI tube present Extremity General Extremity: edema Skin no rashes or lesions noted Neuro moves all extremities and no focal motor deficits Psych cooperative Charges/Coding Visit Charges Inpatient E&M: 55454 Subs Hosp L3
[2022-07-13] MEDS: Potassium Chloride Oral Soln 20 MEQ/15 ML UDC 40 MEQ PO ×2 (09:40→21:32)
[2022-07-13] MEDS: Enoxaparin 40 MG/0.4 ML Syringe SC (09:40)
[2022-07-13] MEDS: Furosemide 10 MG/ML Liquid 20 MG GT ×2 (09:40→18:09)
[2022-07-13] MEDS: QUEtiapine 100 MG Tablet 150 MG GT ×2 (09:41→21:33)
--- NOTE | 2022-07-13 09:42 | CASEMGMT ---
RN CM: Referral sent to [facility] (LTACH). Will follow for LTACH appropriateness/acceptance. Uriel Purvis RN CM
[2022-07-13] MEDS: Famotidine 200 MG/20 ML MDV 20 MG in 0.9% Normal Saline (Pres. free 8 ML 300 MG IV ×2 (11:50→21:32)
[2022-07-13] MEDS: 0.9% Saline Lock 10 ML Syringe IV (13:46)
[2022-07-13] MEDS: Vital AF 1.2 Cal Liquid 1,000 ML 55 ML GT (16:09)
[2022-07-14] VITALS (35 sets, daily range): BP systolic 87–139; BP diastolic 29–103; PULSE 110–130; RESP 14–40; TEMP 37.2–38.1; O2SAT 94–100
[2022-07-14] MEDS: CHLORHEXIDINE GLUC 2% CLOTH 1 EACH TOWELETTE TOPICAL (06:04)
[2022-07-14] MEDS: Phenytoin Na 100 MG/2 ML Vial IV ×3 (06:04→20:06)
[2022-07-14] MEDS: Ipratropium/Albuterol Sulfate 3 ML AMPUL.NEB INHALATION ×3 (07:05→19:05)
--- NOTE | 2022-07-14 07:26 | PN.HOSP_ITS ---
Subjective Subjective Follow-up respiratory failure ? Patient seen remains on the vent currently with trach collar. Heart rate remains elevated. Ordered CBC BMP magnesium results pending Objective Data Objective Data Vital Signs: Vital Signs Temp Pulse Resp BP Pulse Ox O2 Del Method O2 Flow Rate 100.5 F H 119 H 19 H 115/65 100 Mechanical Ventilator 8 07/14/22 06:00 07/14/22 07:06 07/14/22 07:06 07/14/22 07:00 07/14/22 07:06 07/14/22 07:00 07/14/22 04:55 FiO2 30 07/14/22 07:06 Oxygen Flow Rate (L/min) 8 Oxygen Delivery Method Mechanical Ventilator Weight: 60.4 kg Body Mass Index (BMI) 22.9 Intake & Output: Intake and Output for Last 24 Hours 07/12/22 07/13/22 07/14/22 23:59 23:59 23:59 Intake Total 1830 / 1930 1868.33 / 2018.33 250 / 250 Output Total 800 / 1800 4550 / 4900 800 / 800 Balance 1030 / 130 -2681.67 / -2881.67 -550 / -550 Medical Nutrition Assessment Dietitian: Malnutrition Criteria Met Start: 06/30/22 10:32 Freq: Status: Active Protocol: Document 07/13/22 10:53 EMERSON (Rec: 07/13/22 10:53 EMERSON [id number]) Nutrition Malnutrition Evidence of Malnutrition Exists Yes Malnutrition (severe): Chronic Evidenced By Weight Loss (Severe),Physical Changes (Moderate) Clinical Problem Chronic Disease or Condition Related Malnutrition Etiology severe, chronic malnutrition related to predicted inadequate oral intake Signs/Symptoms as evidenced by wt loss of 23. 6#/14% x 9 months, moderate muscle wasting/fat loss in orbital, temporal, clavicle, and acromion areas per physical exam Status Active Problem Recommendation Dietitian Recommendations/Changes NPO while intubated; Continue TF via PEG - Vital AF 1.2 at goal rate of 55mL/hour w/ 100mL H2O flush every 4 hours to provide 1584 calories , 99 g protein, and 1670mL total fluid/day. Lab / Micro Data Result Diagrams: 07/13/22 03:30 07/13/22 03:30 Micro: Microbiology 07/03/22 03:10 Sputum, Induced/Lukens Gram Stain - Final 07/03/22 03:10 Sputum, Induced/Lukens Respiratory Culture - Final Culture exhibits no growth. 06/29/22 23:15 Blood Culture (Wb) - Anticubital Right Blood Culture - Final No growth in 5 days. 06/29/22 22:48 Blood Culture (Wb) - Anticubital Right Blood Culture - Final No growth in 5 days. 06/30/22 02:25 Sputum, Tracheal Aspirate Gram Stain - Final 06/30/22 02:25 Sputum, Tracheal Aspirate Respiratory Culture - Final 06/29/22 23:25 Urine Catheter - Fortune Urine Culture - Final Escherichia coli 06/30/22 02:35 Mucosa - Nasopharyngeal Respiratory Panel (PCR) - Final 06/29/22 23:30 Nasal Secretion SARS-CoV-2 & FLU Antigen (Rapid) - Final Physical Exam Narrative GENERAL: cooperative HEENT: Atraumatic; normocephalic trach collar in place EYES; Anicteric, Normal Conjunctiva NECK; supple, normal thyroid, RESPIRATORY: Diminished to auscultation CARDIOVASCULAR: Regular S1 S2, GI: soft, normoactive bowel sounds, PEG tube in place : No Renal angle tenderness; EXTREMITIES: No edema, no clubbing, MUSCULOSKELETAL: no muscle wasting NEURO: Awake; no lateralizing signs. SKIN: No Rash PSYCH; Flat affect Assessment & Plan Assessment/Plan (1) Altered mental status: PLAN: Plan Patient is a 66-year-old lady with prolonged hospital stay. Initially admitted with seizure-like activity followed by episode of unresponsiveness. Patient underwent trach on 07/10/2022 and PEG tube on 07/09/2022 1. Acute metabolic encephalopathy (present on admission) -etiology was not clear was thought to be due to combination of end-stage COPD as well as possible postictal state from seizure versus polypharmacy. As stated above patient had a protracted stay on the vent was treated and underwent PEG tube. Patient as of this a.m. is awake and communicative 07/14/2021; patient encephalopathy has since resolved 2. Status post trach ? Following acute on chronic hypoxic respiratory failure due to above. Trach care deferred to pulmonary medicine. Did personally review chest x-ray performed on 07/12/2021 demonstrated bibasilar atelectasis 3. Dysphagia ? Secondary to prolonged stay on the vent patient underwent PEG tube placement on 07/09/2022. Tube feed as recommended by dietitian ? 07/14/2021 patient has tolerated tube feeds well so far. 4. Suspected seizure disorder -patient is on Keppra did continue 5. Severe protein calorie malnutrition ? Secondary to patient multiple medical comorbidities. Seen by dietitian re commendations reviewed 6. Acute cystitis with E. coli ? Patient completed appropriate antibiotic therapy 7. Acute on chronic systolic heart failure with history of Takotsubo cardiomyopathy ? Patient patient is is on Lasix continued. BMP ordered for a.m. to monitor response to Lasix 8. History of hemorrhagic CVA ? MRI on admission did demonstrate right subdural fluid collection and bilateral posterior cerebral encephalomalacia.. Requested for PT OT eval 9. Essential hypertension -Blood pressure stable. Currently not on any antihypertensives 10. Anemia - Secondary to chronic disorder monitoring H&H and transfuse if patient becomes symptomatic or hemoglobin falls below 7. CBC ordered for a.m. 11. DVT prophylaxis ? Patient is on SC Lovenox continued 12. Physical deconditioning - Requested for PT OT eval and [employer] social worker to assist with discharge planning Time spent in the patient's overall evaluation,decision-making process, review of diagnostic data, adjustment of management, discussion with other providers, nursing nursing and ancillary staff involved in patient's care documentation, 45 Minutes Charges/Coding Visit Charges Inpatient E&M: 01238 Subs Hosp L2
--- NOTE | 2022-07-14 07:30 | PN.CC_ITS ---
Assessment & Plan Assessment/Plan (1) Acute and chronic respiratory failure with hypercapnia: PLAN: Plan RECOMMENDATIONS: 1. Continue trach collar trials as tolerated. 2. Continue tube feeds for now. 3. Continue antiepileptics, along with seizure precautions. 4. Continue scheduled bronchodilators. 5. Continue Seroquel as ordered. 6. Continue Lasix via G-tube as tolerated. 7. Mobilize patient as tolerated. 8. Disposition planning per case management. IMPRESSIONS: 1. Acute on chronic combined respiratory failure The patient has known end-stage COPD and chronic hypoxemic respiratory failure, along with baseline CO2 retention. She has questionable compliance with her outpatient noninvasive ventilator. I do suspect that her acute respiratory decompensation may have been triggered by a postictal state and/or polypharmacy effects. Due to an inability to wean from invasive mechanical ventilatory support, the patient underwent tracheostomy and PEG tube placement. She is doing well from a respiratory perspective. Plan to continue trach collar trials as tolerated. 2. Encephalopathy Improving, but remains impulsive. Likely metabolic in the setting of CO2 retention and/or related to postictal state in the setting of new onset seizure activity. In addition, there is some question as to whether possible polypharmacy may have also been contributing, as the patient was positive for benzodiazepines and opiates on her toxicology screen. Plan to continue current antiepileptics along with seizure precautions and as needed Ativan. The patient will be maintained on Seroquel as well. 3. History of end-stage COPD/chronic hypoxemic respiratory failure/obstructive sleep apnea/frequent COPD exacerbations The patient has a known history of end-stage COPD with questionable outpatient medical compliance. The patient has had compliance issues in the past related to her supplemental oxygen use and noninvasive ventilator utilization. She will be maintained on scheduled bronchodilators for now. Management as noted above. 4. History of hemorrhagic CVA/former tobacco dependency/history of cardiomyopathy/anxiety/depression Complicates care, management, recovery and prognosis. Okay to continue tube feeds today from my perspective. Physical therapy to work with the patient. Disposition planning per case management. This note was generated with [employer] software. It may contain incorrect words, spelling, and punctuation that were not noted in checking the note before signing. Subjective Subjective The patient was seen and examined at the bedside this morning. Events from the last 24 hours have been reviewed. The patient did well throughout most of the day yesterday on trach collar supplemental oxygen. Early last evening, the p atekaterina developed a mucous plug, which required aggressive suctioning. Following this, the patient had to be placed back on assist control mode of mechanical ventilation. FiO2 requirement is steady at 30%. The patient is documented to be overall net +8.3 L for the hospitalization. Objective Data Objective Data The patient's most recent lab work, culture data and imaging studies have all been personally reviewed.? Surface echocardiogram from June 2021 demonstrated normal LV size with an ejection fraction of 37%.? MRI brain only showed a similar-appearing right subdural fluid collection and bilateral posterior cerebral encephalomalacia.? Respiratory viral panel was negative.? Urine culture was positive for E. coli. Vital Signs: Vital Signs Temp Pulse Resp BP Pulse Ox O2 Del Method O2 Flow Rate 100.5 F H 119 H 19 H 115/65 100 Mechanical Ventilator 8 07/14/22 06:00 07/14/22 07:06 07/14/22 07:06 07/14/22 07:00 07/14/22 07:06 07/14/22 07:00 07/14/22 04:55 FiO2 30 07/14/22 07:06 Oxygen Flow Rate (L/min) 8 Oxygen Delivery Method Mechanical Ventilator Weight: 133 lb 2.547 oz Body Mass Index (BMI) 22.9 Intake & Output: Intake and Output for Last 24 Hours 07/12/22 07/13/22 07/14/22 23:59 23:59 23:59 Intake Total 1830 / 1930 1868.33 / 2018.33 250 / 250 Output Total 800 / 1800 4550 / 4900 800 / 800 Balance 1030 / 130 -2681.67 / -2881.67 -550 / -550 Medical Nutrition Assessment Dietitian: Malnutrition Criteria Met Start: 06/30/22 10:32 Freq: Status: Active Protocol: Document 07/13/22 10:53 EMERSON (Rec: 07/13/22 10:53 EMERSON [id number]) Nutrition Malnutrition Evidence of Malnutrition Exists Yes Malnutrition (severe): Chronic Evidenced By Weight Loss (Severe),Physical Changes (Moderate) Clinical Problem Chronic Disease or Condition Related Malnutrition Etiology severe, chronic malnutrition related to predicted inadequate oral intake Signs/Symptoms as evidenced by wt loss of 23. 6#/14% x 9 months, moderate muscle wasting/fat loss in orbital, temporal, clavicle, and acromion areas per physical exam Status Active Problem Recommendation Dietitian Recommendations/Changes NPO while intubated; Continue TF via PEG - Vital AF 1.2 at goal rate of 55mL/hour w/ 100mL H2O flush every 4 hours to provide 1584 calories , 99 g protein, and 1670mL total fluid/day. Lab / Micro Data Attestation: I reviewed the patient's lab results. Result Diagrams: 07/14/22 07:35 07/14/22 07:35 Labs: Laboratory Results - last 24 hr 07/13/22 03:30: WBC 11.7 H, RBC 3.12 L, Hgb 8.9 L, Hct 28.3 L, MCV 90.7, MCH 28.5, MCHC 31.4 L D, RDW Std Deviation 59.7 H, RDW Coeff of Deonte 18.6 H, Plt Count 304, MPV 11.3, Immature Gran % (Auto) 2.000 H, Neut % (Auto) 70.0, Lymph % (Auto) 16.4 L, Wise % (Auto) 8.4, Eos % (Auto) 2.9, Baso % (Auto) 0.3, Absolute Neuts (auto) 8.2 H, Absolute Lymphs (auto) 1.92, Nucleated RBC % 0 07/13/22 03:30: Sodium 144, Potassium 3.8, Chloride 110 H, Carbon Dioxide 28.0, Anion Gap 6, BUN 17, Creatinine 0.48 L, Estim Creat Clear Calc 45.16, Est GFR (MDRD) Af Amer 167, Est GFR (MDRD) Non-Af 138, BUN/Creatinine Ratio 35.7 H, Glucose 113 H, Calcium 8.7, Phosphorus 2.8, Magnesium 2.1 Micro: Microbiology 07/03/22 03:10 Sputum, Induced/Lukens Gram Stain - Final 07/03/22 03:10 Sputum, Induced/Lukens Respiratory Culture - Final Culture exhibits no growth. 06/29/22 23:15 Blood Culture (Wb) - Anticubital Right Blood Culture - Final No growth in 5 days. 06/29/22 22:48 Blood Culture (Wb) - Anticubital Right Blood Culture - Final No growth in 5 days. 06/30/22 02:25 Sputum, Tracheal Aspirate Gram Stain - Final 06/30/22 02:25 Sputum, Tracheal Aspirate Respiratory Culture - Final 06/29/22 23:25 Urine Catheter - Fortune Urine Culture - Final Escherichia coli 06/30/22 02:35 Mucosa - Nasopharyngeal Respiratory Panel (PCR) - Final 06/29/22 23:30 Nasal Secretion SARS-CoV-2 & FLU Antigen (Rapid) - Final Radiography Diagnostic Testing: Radiology Impression Chest X-Ray 07/12/22 11:53 IMPRESSION: 1. Satisfactory tracheostomy tube placement. 2. Improving bibasilar atelectasis. Electronically Signed: Shailesh Braun MD at 13:31 EST , Physical Exam Const alert and no apparent distress General Appearance: cooperative HEENT normocephalic and head/scalp atraumatic Eyes PERRL, EOMs intact bilaterally and conjunctivae normal Neck supple Neck Narrative: Stable. Tracheostomy site. Chest Chest Narrative: Increased AP diameter. Resp normal respiratory effort Auscultation: diminished lung sounds; Negative for rales, rhonchi or wheezes Cardio regular rate and regular rhythm GI normal to inspection, nondistended, normoactive bowel sounds Inspection: GI tube present Extremity General Extremity: edema Skin no rashes or lesions noted Neuro moves all extremities and no focal motor deficits Psych Mood & Affect: anxious Charges/Coding Visit Charges Inpatient E&M: 65008 [facility] Hosp L3
--- NOTE | 2022-07-14 07:33 | RAD_ITS ---
STUDY: X-RAY CHEST REASON FOR EXAM: Female, 66 years old. Respiratory Failure TECHNIQUE: Single AP portable view of the chest. COMPARISON: Comparison is made with prior study dated 07/12/2022. FINDINGS: A tracheostomy tube is seen. The tip is at 4.3 sinus proximal to the claude. A right-sided PICC line catheter is present with the tip in the midportion of the superior vena cava. EKG electrodes are seen. Mild increased markings at the left lung base. Improved aeration of the right upper lobe. There is no demonstrated pleural abnormality. Normal size heart. Normal mediastinum and jacinto. Normal visualized pulmonary arteries. Normal visualized aortic arch and descending thoracic aorta. Normal visualized thoracic spine. Normal visualized ribs, clavicles, and shoulders. There is no demonstrated abnormality of the visualized soft tissue structures of the upper abdomen. RAD/Chest 1 View (Portable) IMPRESSION: Mild increased markings at the left lung base. Improved aeration of the right upper lobe. Electronically Signed: Vinny Mcghee MD at 14:26 EST ,
[2022-07-14 07:58] LABS: Absolute Lymphocyte Count 2.23 X10^3/uL (0.83-4.51); Absolute Neutrophil Count 10.5 X10^3/uL (2.0-7.7); Basophil# 0.05 X10^3/uL; Basophil% 0.3 % (0-1); Eosinophil# 0.33 X10^3/uL; Eosinophils% 2.3 % (0-5); Hematocrit 27.8 % (37-47); Hemoglobin 8.7 g/dL (12.0-15.0); Lymphocyte # 2.23 X10^3/ul (0.83-4.51); Lymphocyte % 15.3 % (19-41); Mean Corp Hgb Conc 31.3 g/dL (32-36); Mean Corpuscular Hgb 28.3 pg (27.0-32.0); Mean Corpuscular Volume 90.6 fL (81-99); Mean Platelet Vol. 10.7 fl (6.2-12.0); Monocyte# 1.22 X10^3/uL; Monocyte% 8.4 % (0-10); NRBC Flagged by Analyzer 0 % (0-5); Neutrophil # 10.47 X10^3/uL (2.7-7.7); Neutrophil % 71.8 % (47-70); Platelet Count 366 K/mm3 (150-450); RBC Distribution Width CV 18.1 % (11.6-14.6); RBC Distribution Width SD 59.2 fl (35.1-43.9); Red Blood Count 3.07 M/mm3 (4.2-5.4); White Blood Count 14.6 K/mm3 (4.4-11.0)
[2022-07-14 08:12] LABS: Anion Gap 7 (5-15); BUN 17 mg/dL (7-18); BUN/Creat Ratio 34.6 RATIO (10-20); Calcium,Total 8.8 mg/dL (8.5-10.1); Chloride 106 mmol/L (98-107); Creatinine, Serum 0.49 mg/dL (0.55-1.02); EST Glomerular Filtration Rate 133 mL/min (>60); Est Glom Filt Rate - Afr Amer 161 mL/min (>60); Estimated Creatinine Clearance 45.16 ml/min; Glucose 125 mg/dL (74-106); Magnesium 2.1 mg/dL (1.6-2.6); Phosphorus 2.4 mg/dL (2.5-4.9); Potassium 3.5 mmol/L (3.5-5.1); Sodium Level 142 mmol/L (136-145)
[2022-07-14] MEDS: oxyCODONE 5 MG Tablet GT ×2 (08:22→15:41)
[2022-07-14] MEDS: Potassium Chloride Oral Soln 20 MEQ/15 ML UDC 40 MEQ PO ×2 (08:22→20:05)
[2022-07-14] MEDS: Enoxaparin 40 MG/0.4 ML Syringe SC (08:22)
[2022-07-14] MEDS: Furosemide 10 MG/ML Liquid 20 MG GT ×2 (08:23→17:35)
[2022-07-14] MEDS: QUEtiapine 100 MG Tablet 150 MG GT ×2 (08:23→20:06)
--- NOTE | 2022-07-14 08:59 | PCM.PN.SRG ---
Subjective Subjective doing well Objective Data Objective Data no acute events Vital Signs: Vital Signs Temp Pulse Resp BP Pulse Ox O2 Del Method O2 Flow Rate 99.6 F H 118 H 31 H 116/48 L 100 Trach Collar 8 07/14/22 08:00 07/14/22 08:00 07/14/22 08:00 07/14/22 08:00 07/14/22 08:00 07/14/22 08:00 07/14/22 07:50 FiO2 30 07/14/22 08:00 Oxygen Flow Rate (L/min) 8 Oxygen Delivery Method Xavier Collar Weight: 60.4 kg Body Mass Index (BMI) 22.9 Intake & Output: Intake and Output for Last 24 Hours 07/12/22 07/13/22 07/14/22 23:59 23:59 23:59 Intake Total 1830 / 1930 1868.33 / 2018. 415 / 415 Output Total 800 / 1800 4550 / 4900 800 / 800 Balance 1030 / 130 -2681.67 / -2881.67 -385 / -385 Medical Nutrition Assessment Dietitian: Malnutrition Criteria Met Start: 06/30/22 10:32 Freq: Status: Active Protocol: Document 07/13/22 10:53 EMERSON (Rec: 07/13/22 10:53 [facility] [id number]) Nutrition Malnutrition Evidence of Malnutrition Exists Yes Malnutrition (severe): Chronic Evidenced By Weight Loss (Severe),Physical Changes (Moderate) Clinical Problem Chronic Disease or Condition Related Malnutrition Etiology severe, chronic malnutrition related to predicted inadequate oral intake Signs/Symptoms as evidenced by wt loss of 23. 6#/14% x 9 months, moderate muscle wasting/fat loss in orbital, temporal, clavicle, and acromion areas per physical exam Status Active Problem Recommendation Dietitian Recommendations/Changes NPO while intubated; Continue TF via PEG - Vital AF 1.2 at goal rate of 55mL/hour w/ 100mL H2O flush every 4 hours to provide 1584 calories , 99 g protein, and 1670mL total fluid/day. Lab / Micro Data Result Diagrams: 07/14/22 07:35 07/14/22 07:35 Labs: Laboratory Results - last 24 hr 07/14/22 07:35: WBC 14.6 H, RBC 3.07 L, Hgb 8.7 L, Hct 27.8 L, MCV 90.6, MCH 28.3, MCHC 31.3 L, RDW Std Deviation 59.2 H, RDW Coeff of Deonte 18.1 H, Plt Count 366, MPV 10.7, Immature Gran % (Auto) 1.900 H, Neut % (Auto) 71.8 H, Lymph % (Auto) 15.3 L, [place]ady % (Auto) 8.4, Eos % (Auto) 2.3, Baso % (Auto) 0.3, Absolute Neuts (auto) 10.5 H, Absolute Lymphs (auto) 2.23, Nucleated RBC % 0 07/14/22 07:35: Sodium 142, Potassium 3.5, Chloride 106, Carbon Dioxide 29.0, Anion Gap 7, BUN 17, Creatinine 0.49 L, Estim Creat Clear Calc 45.16, Est GFR (MDRD) Af Amer 161, Est GFR (MDRD) Non-Af 133, BUN/Creatinine Ratio 34.6 H, Glucose 125 H, Calcium 8.8, Phosphorus 2.4 L, Magnesium 2.1 Micro: Microbiology 07/03/22 03:10 Sputum, Induced/Lukens Gram Stain - Final 07/03/22 03:10 Sputum, Induced/Lukens Respiratory Culture - Final Culture exhibits no growth. 06/29/22 23:15 Blood Culture (Wb) - Anticubital Right Blood Culture - Final No growth in 5 days. 06/29/22 22:48 Blood Culture (Wb) - Anticubital Right Blood Culture - Final No growth in 5 days. 06/30/22 02:25 Sputum, Tracheal Aspirate Gram Stain - Final 06/30/22 02:25 Sputum, Tracheal Aspirate Respiratory Culture - Final 06/29/22 23:25 Urine Catheter - Fortune Urine Culture - Final Escherichia coli 06/30/22 02:35 Mucosa - Nasopharyngeal Respiratory Panel (PCR) - Final 06/29/22 23:30 Nasal Secretion SARS-CoV-2 & FLU Antigen (Rapid) - Final Physical Exam Const alert General Appearance: cooperative HEENT HEENT Narrative: #[address], sutures removed, trach collar in place Assessment & Plan Assessment/Plan (1) Acute and chronic respiratory failure with hypercapnia: PLAN: Plan POD #4 s/p tracheostomy placement -#[address], sutures removed, trach collar in place
[2022-07-14] MEDS: Famotidine 200 MG/20 ML MDV 20 MG in 0.9% Normal Saline (Pres. free 8 ML 300 MG IV ×2 (09:58→20:06)
[2022-07-14] MEDS: Vital AF 1.2 Cal Liquid 1,000 ML 55 ML GT (11:52)
[2022-07-14] MEDS: Acetaminophen 650 MG/20 ML UDC GT (15:41)
[2022-07-14] MEDS: Alteplase 2 MG/2 ML Vial IV (22:33)
[2022-07-15] VITALS (30 sets, daily range): BP systolic 81–140; BP diastolic 41–81; PULSE 99–138; RESP 14–37; TEMP 36.3–38.1; O2SAT 91–100
[2022-07-15] MEDS: 0.9% Saline Lock 10 ML Syringe IV ×2 (02:51→05:17)
[2022-07-15 03:10] LABS: Absolute Lymphocyte Count 2.12 X10^3/uL (0.83-4.51); Absolute Neutrophil Count 8.4 X10^3/uL (2.0-7.7); Basophil# 0.06 X10^3/uL; Basophil% 0.5 % (0-1); Eosinophil# 0.32 X10^3/uL; Eosinophils% 2.6 % (0-5); Hematocrit 28.3 % (37-47); Hemoglobin 8.6 g/dL (12.0-15.0); Lymphocyte # 2.12 X10^3/ul (0.83-4.51); Lymphocyte % 16.9 % (19-41); Mean Corp Hgb Conc 30.4 g/dL (32-36); Mean Corpuscular Hgb 27.7 pg (27.0-32.0); Mean Corpuscular Volume 91.3 fL (81-99); Mean Platelet Vol. 10.5 fl (6.2-12.0); Monocyte# 1.27 X10^3/uL; Monocyte% 10.1 % (0-10); NRBC Flagged by Analyzer 0 % (0-5); Neutrophil # 8.42 X10^3/uL (2.7-7.7); Neutrophil % 67.2 % (47-70); Platelet Count 418 K/mm3 (150-450); RBC Distribution Width SD 59.7 fl (35.1-43.9); White Blood Count 12.5 K/mm3 (4.4-11.0)
[2022-07-15 03:22] LABS: Anion Gap 7 (5-15); BUN 16 mg/dL (7-18); BUN/Creat Ratio 29.5 RATIO (10-20); Calcium,Total 8.9 mg/dL (8.5-10.1); Chloride 106 mmol/L (98-107); Creatinine, Serum 0.54 mg/dL (0.55-1.02); EST Glomerular Filtration Rate 119 mL/min (>60); Est Glom Filt Rate - Afr Amer 144 mL/min (>60); Estimated Creatinine Clearance 45.16 ml/min; Glucose 111 mg/dL (74-106); Magnesium 2.1 mg/dL (1.6-2.6); Phosphorus 3.5 mg/dL (2.5-4.9); Potassium 3.8 mmol/L (3.5-5.1); Sodium Level 144 mmol/L (136-145)
[2022-07-15] MEDS: CHLORHEXIDINE GLUC 2% CLOTH 1 EACH TOWELETTE TOPICAL (05:17)
[2022-07-15] MEDS: Phenytoin Na 100 MG/2 ML Vial IV ×3 (05:17→21:25)
--- NOTE | 2022-07-15 07:01 | PN.CC_ITS ---
Assessment & Plan Assessment/Plan (1) Acute and chronic respiratory failure with hypercapnia: PLAN: Plan RECOMMENDATIONS: 1. Continue trach collar trials as tolerated. 2. Continue tube feeds for now. 3. Continue antiepileptics, along with seizure precautions. 4. Continue scheduled bronchodilators. 5. Continue Seroquel as ordered. 6. Continue Lasix via G-tube as tolerated. 7. Mobilize patient as tolerated. 8. Disposition planning per case management. IMPRESSIONS: 1. Acute on chronic combined respiratory failure The patient has known end-stage COPD and chronic hypoxemic respiratory failure, along with baseline CO2 retention. She has questionable compliance with her outpatient noninvasive ventilator. I do suspect that her acute respiratory decompensation may have been triggered by a postictal state and/or polypharmacy effects. Due to an inability to wean from invasive mechanical ventilatory support, the patient underwent tracheostomy and PEG tube placement. She is doing well from a respiratory perspective. Plan to continue trach collar trials as tolerated. 2. Encephalopathy Improving, but remains impulsive. Likely metabolic in the setting of CO2 retention and/or related to postictal state in the setting of new onset seizure activity. In addition, there is some question as to whether possible polypharmacy may have also been contributing, as the patient was positive for benzodiazepines and opiates on her toxicology screen. Plan to continue current antiepileptics along with seizure precautions and as needed Ativan. The patient will be maintained on Seroquel as well. 3. History of end-stage COPD/chronic hypoxemic respiratory failure/obstructive sleep apnea/frequent COPD exacerbations The patient has a known history of end-stage COPD with questionable outpatient medical compliance. The patient has had compliance issues in the past related to her supplemental oxygen use and noninvasive ventilator utilization. She will be maintained on scheduled bronchodilators for now. Management as noted above. 4. History of hemorrhagic CVA/former tobacco dependency/history of cardiomyopathy/anxiety/depression Complicates care, management, recovery and prognosis. Okay to continue tube feeds today from my perspective. Physical therapy to work with the patient. Disposition planning per case management. This note was generated with [employer] software. It may contain incorrect words, spelling, and punctuation that were not noted in checking the note before signing. Subjective Subjective The patient was seen and examined at the bedside this morning. Events from the last 24 hours have been reviewed. The patient is currently afebrile, hemodynamically stable and maintaining appropriate oxygen saturations on trach collar with an FiO2 of 30%. Patient was maintained on ventilator support overnight. However, she has been on trach collar supplemental oxygen since 0400 hrs. The patient failed her swallow evaluation yesterday and was not able to tolerate a Passy-Clau valve. She remains overall net +6 L for the [facility]. Objective Data Objective Data The patient's most recent lab work, culture data and imaging studies have all been personally reviewed.? Surface echocardiogram from June 2021 demonstrated normal LV size with an ejection fraction of 37%.? MRI brain only showed a similar-appearing right subdural fluid collection and bilateral posterior cerebral encephalomalacia.? Respiratory viral panel was negative.? Urine culture was positive for E. coli. Vital Signs: Vital Signs Temp Pulse Resp BP Pulse Ox O2 Del Method O2 Flow Rate 98.9 F 123 H 31 H 132/61 H 96 Trach Collar 8 07/15/22 06:00 07/15/22 07:00 07/15/22 07:00 07/15/22 07:00 07/15/22 07:00 07/15/22 07:00 07/14/22 07:50 FiO2 30 07/15/22 07:00 Oxygen Flow Rate (L/min) 8 Oxygen Delivery Method Trach Collar Weight: 129 lb 3.054 oz Body Mass Index (BMI) 22.9 Intake & Output: Intake and Output for Last 24 Hours 07/13/22 07/14/22 07/15/22 23:59 23:59 23:59 Intake Total 1868.33 / 2018.33 1800 / 1900 200 / 200 Output Total 4550 / 4900 2800 / 2800 2049 / 2049 Balance -2681.67 / -2881.67 -1000 / -900 -1850 / -1850 Medical Nutrition Assessment Dietitian: Malnutrition Criteria Met Start: 06/30/22 10:32 Freq: Status: Active Protocol: Document 07/14/22 10:16 AG (Rec: 07/14/22 10:16 AG [id number]) Nutrition Malnutrition Evidence of Malnutrition Exists Yes Malnutrition (severe): Chronic Evidenced By Weight Loss (Severe),Physical Changes (Moderate) Clinical Problem Chronic Disease or Condition Related Malnutrition Etiology severe, chronic malnutrition related to predicted inadequate oral intake Signs/Symptoms as evidenced by wt loss of 23. 6#/14% x 9 months, moderate muscle wasting/fat loss in orbital, temporal, clavicle, and acromion areas per physical exam Status Active Problem Recommendation Dietitian Recommendations/Changes Continue via PEG- Vital AF 1.2 at goal rate of 55mL/hour w/ 100mL H2O flush every 4 hours to provide 1584 calories, 99 g protein, and 1670mL total fluid/day. Lab / Micro Data Attestation: I reviewed the patient's lab results. Result Diagrams: 07/15/22 02:55 07/15/22 02:55 Labs: Laboratory Results - last 24 hr 07/14/22 07:35: WBC 14.6 H, RBC 3.07 L, Hgb 8.7 L, Hct 27.8 L, MCV 90.6, MCH 28.3, MCHC 31.3 L, RDW Std Deviation 59.2 H, RDW Coeff of Deonte 18.1 H, Plt Count 366, MPV 10.7, Immature Gran % (Auto) 1.900 H, Neut % (Auto) 71.8 H, Lymph % (Auto) 15.3 L, [place] % (Auto) 8.4, Eos % (Auto) 2.3, Baso % (Auto) 0.3, Absolute Neuts (auto) 10.5 H, Absolute Lymphs (auto) 2.23, Nucleated RBC % 0 07/14/22 07:35: Sodium 142, Potassium 3.5, Chloride 106, Carbon Dioxide 29.0, Anion Gap 7, BUN 17, Creatinine 0.49 L, Estim Creat Clear Calc 45.16, Est GFR (MDRD) Af Amer 161, Est GFR (MDRD) Non-Af 133, BUN/Creatinine Ratio 34.6 H, Glucose 125 H, Calcium 8.8, Phosphorus 2.4 L, Magnesium 2.1 07/15/22 02:55: WBC 12.5 H, RBC 3.10 L, Hgb 8.6 L, Hct 28.3 L, MCV 91.3, MCH 27.7, MCHC 30.4 L, RDW Std Deviation 59.7 H, RDW Coeff of Deonte 18.0 H, Plt Count 418, MPV 10.5, Immature Gran % (Auto) 2.700 H, Neut % (Auto) 67.2, Lymph % (Auto) 16.9 L, [place] % (Auto) 10.1 H, Eos % (Auto) 2.6, Baso % (Auto) 0.5, Absolute Neuts (auto) 8.4 H, Absolute Lymphs (auto) 2.12, Nucleated RBC % 0 07/15/22 02:55: Sodium 144, Potassium 3.8, Chloride 106, Carbon Dioxide 31.0, Anion Gap 7, BUN 16, Creatinine 0.54 L, Estim Creat Clear Calc 45.16, Est GFR (MDRD) Af Amer 144, Est GFR (MDRD) Non-Af 119, BUN/Creatinine Ratio 29.5 H, Glucose 111 H, Calcium 8.9, Phosphorus 3.5, Magnesium 2.1 Micro: Microbiology 07/03/22 03:10 Sputum, Induced/Lukens Gram Stain - Final 07/03/22 03:10 Sputum, Induced/Lukens Respiratory Culture - Final Culture exhibits no growth. 06/29/22 23:15 Blood Culture (Wb) - Anticubital Right Blood Culture - Final No growth in 5 days. 06/29/22 22:48 Blood Culture (Wb) - Anticubital Right Blood Culture - Final No growth in 5 days. 06/30/22 02:25 Sputum, Tracheal Aspirate Gram Stain - Final 06/30/22 02:25 Sputum, Tracheal Aspirate Respiratory Culture - Final 06/29/22 23:25 Urine Catheter - Fortune Urine Culture - Final Escherichia coli 06/30/22 02:35 Mucosa - Nasopharyngeal Respiratory Panel (PCR) - Final 06/29/22 23:30 Nasal Secretion SARS-CoV-2 & FLU Antigen (Rapid) - Final Radiography Diagnostic Testing: Radiology Impression Chest X-Ray 07/14/22 07:33 IMPRESSION: Mild increased markings at the left lung base. Improved aeration of the right upper lobe. Electronically Signed: Vinny Mcghee MD at 14:26 EST , Physical Exam Const alert and no apparent distress Constitutional Narrative: Sitting in bedside recliner. General Appearance: cooperative HEENT normocephalic and head/scalp atraumatic Eyes PERRL, EOMs intact bilaterally and conjunctivae normal Neck supple Neck Narrative: Stable. Tracheostomy site. Chest Chest Narrative: Increased AP diameter. Resp normal respiratory effort Resp Narrative: Scant rhonchi. Auscultation: diminished lung sounds Cardio S1 normal heart sound and S2 normal heart sound Rate: tachycardic GI normal to inspection, nondistended, normoactive bowel sounds Inspection: GI tube present Extremity no clubbing, cyanosis or edema Skin no rashes or lesions noted Neuro moves all extremities and no focal motor deficits Psych Mood & Affect: anxious Charges/Coding Visit Charges Inpatient E&M: 64315 Subs Hosp L2
[2022-07-15] MEDS: Ipratropium/Albuterol Sulfate 3 ML AMPUL.NEB INHALATION ×3 (07:15→19:13)
--- NOTE | 2022-07-15 08:07 | PCM.PN.HOSP ---
Subjective Subjective Follow-up respiratory failure Patient seen remains on trach collar. She apparently failed swallow eval the day prior. Patient was placed on the vent during the night. Objective Data Objective Data Vital Signs: Vital Signs Temp Pulse Resp BP Pulse Ox O2 Del Method O2 Flow Rate 98.9 F 123 H 31 H 132/61 H 96 Trach Collar 8 07/15/22 06:00 07/15/22 07:00 07/15/22 07:00 07/15/22 07:00 07/15/22 07:00 07/15/22 07:00 07/14/22 07:50 FiO2 30 07/15/22 07:00 Oxygen Flow Rate (L/min) 8 Oxygen Delivery Method Trach Collar Weight: 58.6 kg Body Mass Index (BMI) 22.9 Intake & Output: Intake and Output for Last 24 Hours 07/13/22 07/14/22 07/15/22 23:59 23:59 23:59 Intake Total 1868.33 / 2018.33 1800 / 1900 200 / 200 Output Total 4550 / 4900 2800 / 2800 2049 / 2049 Balance -2681.67 / -2881.67 -1000 / -900 -1850 / -1850 Medical Nutrition Assessment Dietitian: Malnutrition Criteria Met Start: 06/30/22 10:32 Freq: Status: Active Protocol: Document 07/14/22 10:16 AG (Rec: 07/14/22 10:16 [id number]) Nutrition Malnutrition Evidence of Malnutrition Exists Yes Malnutrition (severe): Chronic Evidenced By Weight Loss (Severe),Physical Changes (Moderate) Clinical Problem Chronic Disease or Condition Related Malnutrition Etiology severe, chronic malnutrition related to predicted inadequate oral intake Signs/Symptoms as evidenced by wt loss of 23. 6#/14% x 9 months, moderate muscle wasting/fat loss in orbital, temporal, clavicle, and acromion areas per physical exam Status Active Problem Recommendation Dietitian Recommendations/Changes Continue via PEG- Vital AF 1.2 at goal rate of 55mL/hour w/ 100mL H2O flush every 4 hours to provide 1584 calories, 99 g protein, and 1670mL total fluid/day. Lab / Micro Data Result Diagrams: 07/15/22 02:55 07/15/22 02:55 Labs: Laboratory Results - last 24 hr 07/14/22 07:35: Sodium 142, Potassium 3.5, Chloride 106, Carbon Dioxide 29.0, Anion Gap 7, BUN 17, Creatinine 0.49 L, Estim Creat Clear Calc 45.16, Est GFR (MDRD) Af Amer 161, Est GFR (MDRD) Non-Af 133, BUN/Creatinine Ratio 34.6 H, Glucose 125 H, Calcium 8.8, Phosphorus 2.4 L, Magnesium 2.1 07/15/22 02:55: WBC 12.5 H, RBC 3.10 L, Hgb 8.6 L, Hct 28.3 L, MCV 91.3, MCH 27.7, MCHC 30.4 L, RDW Std Deviation 59.7 H, RDW Coeff of Deonte 18.0 H, Plt Count 418, MPV 10.5, Immature Gran % (Auto) 2.700 H, Neut % (Auto) 67.2, Lymph % (Auto) 16.9 L, [place] % (Auto) 10.1 H, Eos % (Auto) 2.6, Baso % (Auto) 0.5, Absolute Neuts (auto) 8.4 H, Absolute Lymphs (auto) 2.12, Nucleated RBC % 0 07/15/22 02:55: Sodium 144, Potassium 3.8, Chloride 106, Carbon Dioxide 31.0, Anion Gap 7, BUN 16, Creatinine 0.54 L, Estim Creat Clear Calc 45.16, Est GFR (MDRD) Af Amer 144, Est GFR (MDRD) Non-Af 119, BUN/Creatinine Ratio 29.5 H, Glucose 111 H, Calcium 8.9, Phosphorus 3.5, Magnesium 2.1 Micro: Microbiology 07/03/22 03:10 Sputum, Induced/Lukens Gram Stain - Final 07/03/22 03:10 Sputum, Induced/Lukens Respiratory Culture - Final Culture exhibits no growth. 06/29/22 23:15 Blood Culture (Wb) - Anticubital Right Blood Culture - Final No growth in 5 days. 06/29/22 22:48 Blood Culture (Wb) - Anticubital Right Blood Culture - Final No growth in 5 days. 06/30/22 02:25 Sputum, Tracheal Aspirate Gram Stain - Final 06/30/22 02:25 Sputum, Tracheal Aspirate Respiratory Culture - Final 06/29/22 23:25 Urine Catheter - Fortune Urine Culture - Final Escherichia coli 12/27/22 02:35 Mucosa - Nasopharyngeal Respiratory Panel (PCR) - Final 06/29/22 23:30 Nasal Secretion SARS-CoV-2 & FLU Antigen (Rapid) - Final Radiography Diagnostic Testing: Radiology Impression Chest X-Ray 07/14/22 07:33 IMPRESSION: Mild increased markings at the left lung base. Improved aeration of the right upper lobe. Electronically Signed: Vinny Mcghee MD at 14:26 EST , Physical Exam Narrative GENERAL: cooperative HEENT: Atraumatic; normocephalic trach collar in place EYES; Anicteric, Normal Conjunctiva NECK; supple, normal thyroid, RESPIRATORY: Diminished to auscultation CARDIOVASCULAR: Regular S1 S2, GI: soft, normoactive bowel sounds, PEG tube in place : No Renal angle tenderness; EXTREMITIES: No edema, no clubbing, MUSCULOSKELETAL: no muscle wasting NEURO: Awake; no lateralizing signs. SKIN: No Rash PSYCH; Flat affect Assessment & Plan Assessment/Plan (1) Altered mental status: PLAN: Plan Patient is a 66-year-old lady with prolonged hospital stay. Initially admitted with seizure-like activity followed by episode of unresponsiveness. Patient underwent trach on 07/10/2022 and PEG tube on 07/09/2022 1. Acute metabolic encephalopathy (present on admission) -etiology was not clear was thought to be due to combination of end-stage COPD as well as possible postictal state from seizure versus polypharmacy. As stated above patient had a protracted stay on the vent was treated and underwent PEG tube. Patient as of this a.m. is awake and communicative 07/14/2022; patient encephalopathy has since resolved 2. Status post trach ? Following acute on chronic hypoxic respiratory failure due to above. Trach care deferred to pulmonary medicine. Did personally review chest x-ray performed on 07/12/2021 demonstrated bibasilar atelectasis -07/15/2022 patient seen remains on trach collar. She apparently failed swallow eval the day prior. Patient was placed on the vent during the night. 3. Dysphagia ? Secondary to prolonged stay on the vent patient underwent PEG tube placement on 07/09/2022. Tube feed as recommended by dietitian ? 07/14/2022 patient has tolerated tube feeds well so far. 4. Suspected seizure disorder -patient is on Keppra did continue 5. Severe protein calorie malnutrition ? Secondary to patient multiple medical comorbidities. Seen by dietitian recommendations reviewed 6. Acute cystitis with E. coli ? Patient completed appropriate antibiotic therapy 7. Acute on chronic systolic heart failure with history of Takotsubo cardiomyopathy ? Patient patient is is on Lasix continued. BMP ordered for a.m. to monitor response to Lasix 8. History of hemorrhagic CVA ? MRI on admission did demonstrate right subdural fluid collection and bilateral posterior cerebral encephalomalacia.. Requested for PT OT eval 9. Essential hypertension -Blood pressure stable. Currently not on any antihypertensives 10. Anemia - Secondary to chronic disorder monitoring H&H and transfuse if patient becomes symptomatic or hemoglobin falls below 7. CBC ordered for a.m. 11. DVT prophylaxis ? Patient is on SC Lovenox continued 12. Physical deconditioning - Requested for PT OT eval and social work administrator to assist with discharge planning Time spent in the patient's overall evaluation,decision-making process, review of diagnostic data, adjustment of management, discussion with other providers, nursing nursing and ancillary staff involved in patient's care documentation, 45 Minutes Charges/Coding Visit Charges Inpatient E&M: 12380 Subs Hosp L2
[2022-07-15] MEDS: Enoxaparin 40 MG/0.4 ML Syringe SC (10:24)
[2022-07-15] MEDS: QUEtiapine 100 MG Tablet 150 MG GT ×2 (10:24→20:59)
[2022-07-15] MEDS: Potassium Chloride Oral Soln 20 MEQ/15 ML UDC 40 MEQ PO ×2 (10:24→21:00)
[2022-07-15] MEDS: Furosemide 10 MG/ML Liquid 20 MG GT ×2 (10:25→18:21)
[2022-07-15] MEDS: Vital AF 1.2 Cal Liquid 1,000 ML 55 ML GT (10:39)
[2022-07-15] MEDS: Famotidine 200 MG/20 ML MDV 20 MG in 0.9% Normal Saline (Pres. free 8 ML 300 MG IV ×2 (10:45→20:29)
[2022-07-16] VITALS (28 sets, daily range): BP systolic 88–119; BP diastolic 39–93; PULSE 107–125; RESP 14–37; TEMP 36.3–37.3; O2SAT 93–100
[2022-07-16 04:57] LABS: Absolute Lymphocyte Count 2.12 X10^3/uL (0.83-4.51); Absolute Neutrophil Count 9.8 X10^3/uL (2.0-7.7); Basophil# 0.06 X10^3/uL; Basophil% 0.4 % (0-1); Eosinophil# 0.31 X10^3/uL; Eosinophils% 2.2 % (0-5); Hemoglobin 9.4 g/dL (12.0-15.0); Lymphocyte # 2.12 X10^3/ul (0.83-4.51); Lymphocyte % 15.2 % (19-41); Mean Corp Hgb Conc 31.3 g/dL (32-36); Mean Corpuscular Hgb 28.5 pg (27.0-32.0); Mean Corpuscular Volume 90.9 fL (81-99); Mean Platelet Vol. 10.3 fl (6.2-12.0); Monocyte# 1.47 X10^3/uL; Monocyte% 10.6 % (0-10); NRBC Flagged by Analyzer 0 % (0-5); Neutrophil # 9.76 X10^3/uL (2.7-7.7); Neutrophil % 70.1 % (47-70); Platelet Count 418 K/mm3 (150-450); RBC Distribution Width CV 17.8 % (11.6-14.6); RBC Distribution Width SD 58.4 fl (35.1-43.9); White Blood Count 13.9 K/mm3 (4.4-11.0)
[2022-07-16 05:14] LABS: Anion Gap 4 (5-15); BUN 20 mg/dL (7-18); BUN/Creat Ratio 40.5 RATIO (10-20); Calcium,Total 8.8 mg/dL (8.5-10.1); Chloride 105 mmol/L (98-107); Creatinine, Serum 0.49 mg/dL (0.55-1.02); EST Glomerular Filtration Rate 132 mL/min (>60); Est Glom Filt Rate - Afr Amer 160 mL/min (>60); Estimated Creatinine Clearance 45.16 ml/min; Glucose 99 mg/dL (74-106); Sodium Level 140 mmol/L (136-145)
[2022-07-16] MEDS: CHLORHEXIDINE GLUC 2% CLOTH 1 EACH TOWELETTE TOPICAL (05:41)
[2022-07-16] MEDS: Vital AF 1.2 Cal Liquid 1,000 ML 55 ML GT (05:41)
[2022-07-16] MEDS: Phenytoin Na 100 MG/2 ML Vial IV (05:42)
--- NOTE | 2022-07-16 06:44 | PCM.PN.INT ---
Assessment & Plan Assessment/Plan (1) Acute and chronic respiratory failure with hypercapnia: PLAN: Plan RECOMMENDATIONS: 1. Continue trach collar and wean FiO2 to maintain saturations at or above 90%. 2. Continue tube feeds for now. 3. Continue antiepileptics, along with seizure precautions. 4. Continue scheduled bronchodilators. 5. Continue Seroquel as ordered. 6. Continue Lasix via G-tube as tolerated. 7. Mobilize patient as tolerated. 8. Start scheduled BuSpar today. 9. Disposition planning per case management. IMPRESSIONS: 1. Acute on chronic combined respiratory failure The patient has known end-stage COPD and chronic hypoxemic respiratory failure, along with baseline CO2 retention. She has questionable compliance with her outpatient noninvasive ventilator. I do suspect that her acute respiratory decompensation may have been triggered by a postictal state and/or polypharmacy effects. Due to an inability to wean from invasive mechanical ventilatory support, the patient underwent tracheostomy and PEG tube placement. She is doing well from a respiratory perspective. The patient does not appear to require an additional ventilatory support. Plan to continue trach collar supplemental oxygen with a goal to wean FiO2 to maintain saturations at or above 90%. 2. Encephalopathy Improving, but remains impulsive. Likely metabolic in the setting of CO2 retention and/or related to postictal state in the setting of new onset seizure activity. In addition, there is some question as to whether possible polypharmacy may have also been contributing, as the patient was positive for benzodiazepines and opiates on her toxicology screen. Plan to continue current antiepileptics along with seizure precautions. The patient will be maintained on Seroquel and started on BuSpar today to address underlying anxiety. 3. History of end-stage COPD/chronic hypoxemic respiratory failure/obstructive sleep apnea/frequent COPD exacerbations The patient has a known history of end-stage COPD with questionable outpatient medical compliance. The patient has had compliance issues in the past related to her supplemental oxygen use and noninvasive ventilator utilization. She will be maintained on scheduled bronchodilators for now. Management as noted above. 4. History of hemorrhagic CVA/former tobacco dependency/history of cardiomyopathy/anxiety/depression Complicates care, management, recovery and prognosis. Okay to continue tube feeds. Physical therapy to work with the patient. Disposition planning per case management. This note was generated with [employer] software. It may contain incorrect words, spelling, and punctuation that were not noted in checking the note before signing. Subjective Subjective The patient was seen and examined at the bedside this morning. Events from the last 24 hours have been reviewed. The patient is currently afebrile, hemodynamically stable and maintaining appropriate oxygen saturations on trach collar with an FiO2 of 30%. The patient tolerated trach collar all day yesterday and was placed on the vent for overnight support. She is documented to be overall net +6.8 L for the hospitalization. The patient remains anxious. Objective Data Objective Data The patient's most recent lab work, culture data and imaging studies have all been personally reviewed.? Surface echocardiogram from June 2021 demonstrated normal LV size with an ejection fraction of 37%.? MRI brain only showed a similar-appearing right subdural fluid collection and bilateral posterior cerebral encephalomalacia.? Respiratory viral panel was negative.? Urine culture was positive for E. coli. Vital Signs: Vital Signs Temp Pulse Resp BP Pulse Ox O2 Del Method O2 Flow Rate 99.1 F 115 H 25 H 115/52 L 93 Trach Collar 8 07/16/22 05:00 07/16/22 06:00 07/16/22 06:00 07/16/22 06:00 07/16/22 06:00 07/16/22 06:00 07/15/22 19:13 FiO2 30 07/16/22 06:00 Oxygen Flow Rate (L/min) 8 Oxygen Delivery Method Trach Collar Weight: 123 lb 3.814 oz Body Mass Index (BMI) 22.9 Intake & Output: Intake and Output for Last 24 Hours 07/14/22 07/15/22 07/16/22 23:59 23:59 23:59 Intake Total 1800 / 1900 1930 / 1930 1100 / 1100 Output Total 2800 / 2800 3800 / 3800 300 / 300 Balance -1000 / -900 -1870 / -1870 800 / 800 Medical Nutrition Assessment Dietitian: Malnutrition Criteria Met Start: 06/30/22 10:32 Freq: Status: Active Protocol: Document 07/14/22 10:16 (Rec: 07/14/22 10:16 [id number]) Nutrition Malnutrition Evidence of Malnutrition Exists Yes Malnutrition (severe): Chronic Evidenced By Weight Loss (Severe),Physical Changes (Moderate) Clinical Problem Chronic Disease or Condition Related Malnutrition Etiology severe, chronic malnutrition related to predicted inadequate oral intake Signs/Symptoms as evidenced by wt loss of 23. 6#/14% x 9 months, moderate muscle wasting/fat loss in orbital, temporal, clavicle, and acromion areas per physical exam Status Active Problem Recommendation Dietitian Recommendations/Changes Continue via PEG- Vital AF 1.2 at goal rate of 55mL/hour w/ 100mL H2O flush every 4 hours to provide 1584 calories, 99 g protein, and 1670mL total fluid/day. Lab / Micro Data Attestation: I reviewed the patient's lab results. Result Diagrams: 07/16/22 04:40 07/16/22 04:40 Labs: Laboratory Results - last 24 hr 07/16/22 04:40: WBC 13.9 H, RBC 3.30 L, Hgb 9.4 L, Hct 30.0 L, MCV 90.9, MCH 28.5, MCHC 31.3 L, RDW Std Deviation 58.4 H, RDW Coeff of [place]onte 17.8 H, Plt Count 418, MPV 10.3, Immature Gran % (Auto) 1.500 H, Neut % (Auto) 70.1 H, Lymph % (Auto) 15.2 L, [place] % (Auto) 10.6 H, Eos % (Auto) 2.2, Baso % (Auto) 0.4, Absolute Neuts (auto) 9.8 H, Absolute Lymphs (auto) 2.12, Nucleated RBC % 0 07/16/22 04:40: Sodium 140, Potassium 4.0, Chloride 105, Carbon Dioxide 31.0, Anion Gap 4 L, BUN 20 H, Creatinine 0.49 L, Estim Creat Clear Calc 45.16, Est GFR (MDRD) Af Amer 160, Est GFR (MDRD) Non-Af 132, BUN/Creatinine Ratio 40.5 H, Glucose 99, Calcium 8.8 Micro: Microbiology 07/03/22 03:10 Sputum, Induced/Lukens Gram Stain - Final 07/03/22 03:10 Sputum, Induced/Lukens Respiratory Culture - Final Culture exhibits no growth. 06/29/22 23:15 Blood Culture (Wb) - Anticubital Right Blood Culture - Final No growth in 5 days. 06/29/22 22:48 Blood Culture (Wb) - Anticubital Right Blood Culture - Final No growth in 5 days. 06/30/22 02:25 Sputum, Tracheal Aspirate Gram Stain - Final 06/30/22 02:25 Sputum, Tracheal Aspirate Respiratory Culture - Final 06/29/22 23:25 Urine Catheter - Fortune Urine Culture - Final Escherichia coli 06/30/22 02:35 Mucosa - Nasopharyngeal Respiratory Panel (PCR) - Final 06/29/22 23:30 Nasal Secretion SARS-CoV-2 & FLU Antigen (Rapid) - Final Radiography Diagnostic Testing: Radiology Impression Chest X-Ray 07/14/22 07:33 IMPRESSION: Mild increased markings at the left lung base. Improved aeration of the right upper lobe. Electronically Signed: Vinny Mcghee MD at 14:26 EST , Physical Exam Const alert and no apparent distress General Appearance: cooperative HEENT normocephalic and head/scalp atraumatic Eyes PERRL, EOMs intact bilaterally and conjunctivae normal Neck supple Neck Narrative: Stable. Tracheostomy site. Chest Chest Narrative: Increased AP diameter. Resp normal respiratory effort Effort and Inspection: tachypneic Auscultation: diminished lung sounds Cardio S1 normal heart sound and S2 normal heart sound Rate: tachycardic GI normal to inspection, nondistended, normoactive bowel sounds Inspection: GI tube present Extremity no clubbing, cyanosis or edema Skin no rashes or lesions noted Neuro moves all extremities and no focal motor deficits Psych Mood & Affect: anxious Charges/Coding Visit Charges Inpatient E&M: 83905 Subs Hosp L2
[2022-07-16] MEDS: Ipratropium/Albuterol Sulfate 3 ML AMPUL.NEB INHALATION ×3 (06:55→19:07)
--- NOTE | 2022-07-16 07:44 | PCM.PN.HOSP ---
Subjective Subjective Follow-up respiratory failure Patient seen was apparently on the vent during the night. Her WBC count continues to climb however no evidence of active infection at this point. Hemoglobin 9.4 Objective Data Objective Data Vital Signs: Vital Signs Temp Pulse Resp BP Pulse Ox O2 Del Method O2 Flow Rate 99.1 F 107 H 20 H 114/93 H 99 Trach Collar 8 07/16/22 05:00 07/16/22 07:30 07/16/22 07:30 07/16/22 07:30 07/16/22 07:30 07/16/22 07:30 07/15/22 19:13 FiO2 30 07/16/22 07:30 Oxygen Flow Rate (L/min) 8 Oxygen Delivery Method Trach Collar Weight: 55.9 kg Body Mass Index (BMI) 22.9 Intake & Output: Intake and Output for Last 24 Hours 07/14/22 07/15/22 07/16/22 23:59 23:59 23:59 Intake Total 1800 / 1900 1930 / 1930 1100 / 1100 Output Total 2800 / 2800 3800 / 3800 300 / 300 Balance -1000 / -900 -1870 / -1870 800 / 800 Medical Nutrition Assessment Dietitian: Malnutrition Criteria Met Start: 06/30/22 10:32 Freq: Status: Active Protocol: Document 07/14/22 10:16 (Rec: 07/14/22 10:16 [id number]) Nutrition Malnutrition Evidence of Malnutrition Exists Yes Malnutrition (severe): Chronic Evidenced By Weight Loss (Severe),Physical Changes (Moderate) Clinical Problem Chronic Disease or Condition Related Malnutrition Etiology severe, chronic malnutrition related to predicted inadequate oral intake Signs/Symptoms as evidenced by wt loss of 23. 6#/14% x 9 months, moderate muscle wasting/fat loss in orbital, temporal, clavicle, and acromion areas per physical exam Status Active Problem Recommendation Dietitian Recommendations/Changes Continue via PEG- Vital AF 1.2 at goal rate of 55mL/hour w/ 100mL H2O flush every 4 hours to provide 1584 calories, 99 g protein, and 1670mL total fluid/day. Lab / Micro Data Result Diagrams: 07/16/22 04:40 07/16/22 04:40 Labs: Laboratory Results - last 24 hr 07/16/22 04:40: WBC 13.9 H, RBC 3.30 L, Hgb 9.4 L, Hct 30.0 L, MCV 90.9, MCH 28.5, MCHC 31.3 L, RDW Std Deviation 58.4 H, RDW Coeff of [place]onte 17.8 H, Plt Count 418, MPV 10.3, Immature Gran % (Auto) 1.500 H, Neut % (Auto) 70.1 H, Lymph % (Auto) 15.2 L, [place] % (Auto) 10.6 H, Eos % (Auto) 2.2, Baso % (Auto) 0.4, Absolute Neuts (auto) 9.8 H, Absolute Lymphs (auto) 2.12, Nucleated RBC % 0 07/16/22 04:40: Sodium 140, Potassium 4.0, Chloride 105, Carbon Dioxide 31.0, Anion Gap 4 L, BUN 20 H, Creatinine 0.49 L, Estim Creat Clear Calc 45.16, Est GFR (MDRD) Af Amer 160, Est GFR (MDRD) Non-Af 132, BUN/Creatinine Ratio 40.5 H, Glucose 99, Calcium 8.8 Micro: Microbiology 07/03/22 03:10 Sputum, Induced/Lukens Gram Stain - Final 07/03/22 03:10 Sputum, Induced/Lukens Respiratory Culture - Final Culture exhibits no growth. 06/29/22 23:15 Blood Culture (Wb) - Anticubital Right Blood Culture - Final No growth in 5 days. 06/29/22 22:48 Blood Culture (Wb) - Anticubital Right Blood Culture - Final No growth in 5 days. 06/30/22 02:25 Sputum, Tracheal Aspirate Gram Stain - Final 06/30/22 02:25 Sputum, Tracheal Aspirate Respiratory Culture - Final 06/29/22 23:25 Urine Catheter - Fortune Urine Culture - Final Escherichia coli 06/30/22 02:35 Mucosa - Nasopharyngeal Respiratory Panel (PCR) - Final 06/29/22 23:30 Nasal Secretion SARS-CoV-2 & FLU Antigen (Rapid) - Final Physical Exam Narrative GENERAL: cooperative HEENT: Atraumatic; normocephalic trach collar in place EYES; Anicteric, Normal Conjunctiva NECK; supple, normal thyroid, RESPIRATORY: Diminished to auscultation CARDIOVASCULAR:? Regular S1 S2, GI:? soft, normoactive bowel sounds, PEG tube in place : No Renal angle tenderness; EXTREMITIES:? No edema, no clubbing, MUSCULOSKELETAL:? no muscle wasting NEURO:? Awake;? no lateralizing signs. SKIN:? No Rash PSYCH; Flat? affect Assessment & Plan Assessment/Plan (1) Acute and chronic respiratory failure with hypercapnia: PLAN: Plan Patient is a 66-year-old lady with prolonged hospital stay.? Initially admitted with seizure-like activity followed by episode of unresponsiveness.? Patient underwent trach on 07/10/2022 and PEG tube on 07/09/2022 1.? Acute metabolic encephalopathy (present on admission) -etiology was not clear was thought to be due to combination of end-stage COPD as well as possible postictal state from seizure versus polypharmacy.? As stated above patient had a protracted stay on the vent was treated and underwent PEG tube.? Patient as of this a.m. is awake and communicative 07/14/2022; patient encephalopathy has since resolved 2.? Status post trach ? Following acute on chronic hypoxic respiratory failure due to above.? Trach care deferred to pulmonary medicine.? Did personally review chest x-ray performed on 07/12/2021 demonstrated bibasilar atelectasis -07/15/2022 patient seen remains on trach collar.? She apparently failed swallow eval the day prior.? Patient was placed on the vent during the night. ? 07/16/2022; patient tolerated the vent during the night. 3.? Dysphagia ? Secondary to prolonged stay on the vent patient underwent PEG tube placement on 07/09/2022.? Tube feed as recommended by dietitian ? 07/14/2022 patient has tolerated tube feeds well so far. 4.? Suspected seizure disorder -patient is on Keppra did continue 5.? Severe protein calorie malnutrition ? Secondary to patient multiple medical comorbidities.? Seen by dietitian recommendations reviewed 6.? Acute cystitis with E. coli ? Patient completed appropriate antibiotic therapy 7.? Acute on chronic systolic heart failure with history of Takotsubo cardiomyopathy ? Patient patient is is on Lasix continued.? BMP ordered for a.m. to monitor response to Lasix 8.? History of hemorrhagic CVA ? MRI on admission did demonstrate right subdural fluid collection and bilateral posterior cerebral encephalomalacia..? Requested for PT OT eval 9.? Essential hypertension -Blood pressure stable.? Currently not on any antihypertensives 10.? Anemia - Secondary to chronic disorder monitoring H&H and transfuse if patient becomes symptomatic or hemoglobin falls below? 7.? CBC ordered for a.m. 11.? DVT prophylaxis ? Patient is on [place] Lovenox continued 12.? Physical deconditioning - Requested for PT OT eval and social media campaign manager to assist with discharge planning Time spent in the patient's overall evaluation,decision-making process, review of diagnostic data, adjustment of management, discussion with other providers, nursing nursing and ancillary staff involved in patient's care documentation, 35? Minutes Charges/Coding Visit Charges Inpatient E&M: 90052 Subs Hosp L2
[2022-07-16] MEDS: Furosemide 100 MG/10 ML Vial 60 MG IV (08:26)
[2022-07-16] MEDS: Famotidine 200 MG/20 ML MDV 20 MG in 0.9% Normal Saline (Pres. free 8 ML 300 MG IV (08:34)
[2022-07-16] MEDS: Potassium Chloride Oral Soln 20 MEQ/15 ML UDC 40 MEQ PO (08:35)
[2022-07-16] MEDS: busPIRone 5 MG Tablet 10 MG PO (08:37)
[2022-07-16] MEDS: Enoxaparin 40 MG/0.4 ML Syringe SC (08:40)
[2022-07-16] MEDS: QUEtiapine 100 MG Tablet 150 MG GT ×2 (08:40→21:22)
--- NOTE | 2022-07-16 09:58 | CASEMGMT ---
Addendum entered by Carla Azevedo 07/16/22 14:21: FINESSE LALA received call from Rachel at [facility] and they are able to accept updated clinicals requested. FINESSE LALA sent updated clinicals via [employer]. Rachel stated she will submit for precert by the end of the day. Rachel anticipates it could take up to 72 hours to update of precert from [facility]. [facility] will continue to follow this patient and plan for a safe discharge. Original Note: FINESSE LALA received message from Melodie at [facility] that they do not have any beds available. FINESSE LALA called and spoke with patient's daughter Ameena and next preferred [facility]. FINESSE LALA sent referral via [employer]. Awaiting call back regarding acceptance. CM will continue to follow this patient and plan for a safe discharge.
[2022-07-16] MEDS: Chlorhexidine 15 ML PO (10:24)
[2022-07-16] MEDS: Acetaminophen 650 MG/20 ML UDC GT ×2 (11:03→16:14)
[2022-07-16] MEDS: oxyCODONE 5 MG Tablet GT (11:04)
[2022-07-16] MEDS: Furosemide 10 MG/ML Liquid 20 MG GT (15:55)
[2022-07-16] MEDS: Phenytoin Na 100 MG/4 ML UDC GT ×2 (15:55→21:22)
[2022-07-16] MEDS: busPIRone 5 MG Tablet 10 MG GT (21:22)
[2022-07-16] MEDS: levETIRAcetam Oral Solution 500 MG/5 ML GT (21:22)
[2022-07-16] MEDS: Potassium Chloride Oral Soln 20 MEQ/15 ML UDC 40 MEQ GT (21:22)
[2022-07-16] MEDS: Famotidine 20 MG Tablet GT (21:22)
[2022-07-17] VITALS (22 sets, daily range): BP systolic 85–148; BP diastolic 41–71; PULSE 90–120; RESP 21–38; TEMP 36.3–37.2; O2SAT 92–100
--- NOTE | 2022-07-17 00:30 | NURSING ---
This RN went into pt room to check on her. Upon entering, it was noted that pt had her PICC line laying on her lap in bed. Pt stated her arm was itching and it came out. It was explained to the pt the dangers and repercussions of removing her PICC along with any other line, tube, or wire that was connected to her. Pt verbalized understanding and curtain was left open in order to better watch the pt overnight.
[2022-07-17] MEDS: Vital AF 1.2 Cal Liquid 1,000 ML 55 ML GT ×2 (03:06→20:41)
[2022-07-17 03:46] LABS: Absolute Neutrophil Count 9.6 X10^3/uL (2.0-7.7); Basophil% 0.7 % (0-1); Eosinophil# 0.24 X10^3/uL; Eosinophils% 1.8 % (0-5); Hematocrit 38.6 % (37-47); Hemoglobin 11.3 g/dL (12.0-15.0); Lymphocyte % 14.8 % (19-41); Mean Corp Hgb Conc 29.3 g/dL (32-36); Mean Corpuscular Hgb 28.2 pg (27.0-32.0); Mean Corpuscular Volume 96.3 fL (81-99); Mean Platelet Vol. 10.2 fl (6.2-12.0); Monocyte# 1.35 X10^3/uL; NRBC Flagged by Analyzer 0 % (0-5); Neutrophil % 71.1 % (47-70); Platelet Count 432 K/mm3 (150-450); RBC Distribution Width CV 18.1 % (11.6-14.6); RBC Distribution Width SD 63.5 fl (35.1-43.9); Red Blood Count 4.01 M/mm3 (4.2-5.4); White Blood Count 13.5 K/mm3 (4.4-11.0)
[2022-07-17 04:05] LABS: Anion Gap 3 (5-15); BUN 21 mg/dL (7-18); BUN/Creat Ratio 39.8 RATIO (10-20); Calcium,Total 9.3 mg/dL (8.5-10.1); Chloride 106 mmol/L (98-107); Creatinine, Serum 0.53 mg/dL (0.55-1.02); EST Glomerular Filtration Rate 123 mL/min (>60); Est Glom Filt Rate - Afr Amer 149 mL/min (>60); Estimated Creatinine Clearance 45.16 ml/min; Glucose 111 mg/dL (74-106); Potassium 4.4 mmol/L (3.5-5.1); Sodium Level 139 mmol/L (136-145)
[2022-07-17] MEDS: Phenytoin Na 100 MG/4 ML UDC GT ×3 (06:48→20:40)
[2022-07-17] MEDS: Ipratropium/Albuterol Sulfate 3 ML AMPUL.NEB INHALATION ×3 (06:54→18:53)
--- NOTE | 2022-07-17 07:19 | PN.HOSP_ITS ---
Subjective Subjective Follow-up respiratory failure ? Patient seen, per nursing staff patient was delirious during the night ripping off her PICC line Objective Data Objective Data Vital Signs: Vital Signs Temp Pulse Resp BP Pulse Ox O2 Del Method O2 Flow Rate 97.3 F L 110 H 36 H 113/54 L 96 Trach Collar 8 07/17/22 06:00 07/17/22 06:00 07/17/22 06:00 07/17/22 06:00 07/17/22 06:00 07/17/22 06:00 07/15/22 19:13 FiO2 30 07/16/22 18:00 Oxygen Flow Rate (L/min) 8 Oxygen Delivery Method Trach Collar Weight: 55.6 kg Body Mass Index (BMI) 22.9 Intake & Output: Intake and Output for Last 24 Hours 07/15/22 07/16/22 07/17/22 23:59 23:59 23:59 Intake Total 1930 / 1930 1415 / 1415 2807 / 2807 Output Total 3800 / 3800 2650 / 3250 1050 / 1050 Balance -1870 / -1870 -1235 / -1835 1757 / 1757 Medical Nutrition Assessment Dietitian: Malnutrition Criteria Met Start: 06/30/22 10:32 Freq: Status: Active Protocol: Document 07/16/22 09:41 LO (Rec: 07/16/22 09:41 LO [id number]) Nutrition Malnutrition Evidence of Malnutrition Exists Yes Malnutrition (severe): Chronic Evidenced By Weight Loss (Severe),Physical Changes (Moderate) Clinical Problem Chronic Disease or Condition Related Malnutrition Etiology severe, chronic malnutrition related to predicted inadequate oral intake Signs/Symptoms as evidenced by wt loss of 23. 6#/14% x 9 months, moderate muscle wasting/fat loss in orbital, temporal, clavicle, and acromion areas per physical exam Status Active Problem Recommendation Dietitian Recommendations/Changes Continue via PEG- Vital AF 1.2 at goal rate of 55mL/hour w/ 100mL H2O flush every 4 hours to provide 1584 calories, 99 g protein, and 1670mL total fluid/day. Lab / Micro Data Result Diagrams: 07/17/22 03:38 07/17/22 03:38 Labs: Laboratory Results - last 24 hr 07/17/22 03:38: WBC 13.5 H, RBC 4.01 L, Hgb 11.3 L, Hct 38.6, MCV 96.3 D, MCH 28.2, MCHC 29.3 L D, RDW Std Deviation 63.5 H, RDW Coeff of Deonte 18.1 H, Plt Count 432, MPV 10.2, Immature Gran % (Auto) 1.600 H, Neut % (Auto) 71.1 H, Lymph % (Auto) 14.8 L, Hawkins % (Auto) 10.0, Eos % (Auto) 1.8, Baso % (Auto) 0.7, Absolute Neuts (auto) 9.6 H, Absolute Lymphs (auto) 2.00, Nucleated RBC % 0 07/17/22 03:38: Sodium 139, Potassium 4.4, Chloride 106, Carbon Dioxide 30.0, Anion Gap 3 L, BUN 21 H, Creatinine 0.53 L, Estim Creat Clear Calc 45.16, Est GFR (MDRD) Af Amer 149, Est GFR (MDRD) Non-Af 123, BUN/Creatinine Ratio 39.8 H, Glucose 111 H, Calcium 9.3 Micro: Microbiology 07/03/22 03:10 Sputum, Induced/Lukens Gram Stain - Final 07/03/22 03:10 Sputum, Induced/Lukens Respiratory Culture - Final Culture exhibits no growth. 06/29/22 23:15 Blood Culture (Wb) - Anticubital Right Blood Culture - Final No growth in 5 days. 06/29/22 22:48 Blood Culture (Wb) - Anticubital Right Blood Culture - Final No growth in 5 days. 06/30/22 02:25 Sputum, Tracheal Aspirate Gram Stain - Final 06/30/22 02:25 Sputum, Tracheal Aspirate Respiratory Culture - Final 06/29/22 23:25 Urine Catheter - Fortune Urine Culture - Final Escherichia coli 06/30/22 02:35 Mucosa - Nasopharyngeal Respiratory Panel (PCR) - Final 06/29/22 23:30 Nasal Secretion SARS-CoV-2 & FLU Antigen (Rapid) - Final Physical Exam Narrative GENERAL: cooperative HEENT: Atraumatic; trach collar in place EYES; Anicteric, Normal Conjunctiva NECK; supple, normal thyroid, RESPIRATORY: Diminished to auscultation CARDIOVASCULAR:? Regular S1 S2, GI:? soft, normoactive bowel sounds, PEG tube in place : No Renal angle tenderness; EXTREMITIES:? No edema, no clubbing, MUSCULOSKELETAL:? no muscle wasting NEURO:? Awake;? no lateralizing signs. SKIN:? No Rash PSYCH; Flat? affect Assessment & Plan Assessment/Plan (1) Acute and chronic respiratory failure with hypercapnia: PLAN: Plan Patient is a 66-year-old lady with prolonged hospital stay.? Initially admitted with seizure-like activity followed by episode of unresponsiveness.? Patient underwent trach on 07/10/2022 and PEG tube on 07/09/2022 1.? Acute metabolic encephalopathy (present on admission) -etiology was not clear was thought to be due to combination of end-stage COPD as well as possible postictal state from seizure versus polypharmacy.? As stated above patient had a protracted stay on the vent was treated and underwent PEG tube.? Patient as of this a.m. is awake and communicative 07/14/2022; patient encephalopathy has since resolved ? 07/17/2022 had episode of delirium during the night. Back to baseline. 2.? Status post trach ? Following acute on chronic hypoxic respiratory failure due to above.? Trach care deferred to pulmonary medicine.? Did personally review chest x-ray performed on 07/12/2021 demonstrated bibasilar atelectasis -07/15/2022 patient seen remains on trach collar.? She apparently failed swallow eval the day prior.? Patient was placed on the vent during the night. ? 07/16/2022; patient tolerated the vent during the night. 3.? Dysphagia ? Secondary to prolonged stay on the vent patient underwent PEG tube placement on 07/09/2022.? Tube feed as recommended by dietitian ? 07/14/2022 patient has tolerated tube feeds well so far. 4.? Suspected seizure disorder -patient is on Keppra did continue 5.? Severe protein calorie malnutrition ? Secondary to patient multiple medical comorbidities.? Seen by dietitian recommendations reviewed 6.? Acute cystitis with E. coli ? Patient completed appropriate antibiotic therapy 7.? Acute on chronic systolic heart failure with history of Takotsubo cardiom yopathy ? Patient patient is is on Lasix continued.? BMP ordered for a.m. to monitor response to Lasix 8.? History of hemorrhagic CVA ? MRI on admission did demonstrate right subdural fluid collection and bilateral posterior cerebral encephalomalacia..? Requested for PT OT eval 9.? Essential hypertension -Blood pressure stable.? Currently not on any antihypertensives 10.? Anemia - Secondary to chronic disorder monitoring H&H and transfuse if patient becomes symptomatic or hemoglobin falls below? 7.? CBC ordered for a.m. 11.? DVT prophylaxis ? Patient is on SC Lovenox continued 12.? Physical deconditioning - Requested for PT OT eval and manager social media to assist with discharge planning Time spent in the patient's overall evaluation,decision-making process, review of diagnostic data, adjustment of management, discussion with other providers, nursing nursing and ancillary staff involved in patient's care documentation, 35? Minutes Charges/Coding Visit Charges Inpatient E&M: 00382 Subs Hosp L2
--- NOTE | 2022-07-17 08:00 | PCM.PN.INT ---
Assessment & Plan Assessment/Plan (1) Acute and chronic respiratory failure with hypercapnia: PLAN: Plan RECOMMENDATIONS: 1. Continue trach collar and wean FiO2 to maintain saturations at or above 90%. 2. Continue tube feeds for now. 3. Continue antiepileptics, along with seizure precautions. 4. Continue scheduled bronchodilators. 5. Continue Seroquel as ordered. 6. Continue Lasix via G-tube as tolerated. 7. Mobilize patient as tolerated. 8. Continue BuSpar as ordered. 9. Disposition planning per case management. IMPRESSIONS: 1. Acute on chronic combined respiratory failure The patient has known end-stage COPD and chronic hypoxemic respiratory failure, along with baseline CO2 retention. She has questionable compliance with her outpatient noninvasive ventilator. I do suspect that her acute respiratory decompensation may have been triggered by a postictal state and/or polypharmacy effects. Due to an inability to wean from invasive mechanical ventilatory support, the patient underwent tracheostomy and PEG tube placement. She is doing well from a respiratory perspective. The patient does not appear to require any additional ventilatory support. Plan to continue trach collar supplemental oxygen with a goal to wean FiO2 to maintain saturations at or above 90%. 2. Encephalopathy Improving, but remains impulsive. Likely metabolic in the setting of CO2 retention and/or related to postictal state in the setting of new onset seizure activity. In addition, there is some question as to whether possible polypharmacy may have also been contributing, as the patient was positive for benzodiazepines and opiates on her toxicology screen. Plan to continue current antiepileptics along with seizure precautions. The patient will be maintained on Seroquel and BuSpar as ordered. 3. History of end-stage COPD/chronic hypoxemic respiratory failure/obstructive sleep apnea/frequent COPD exacerbations The patient has a known history of end-stage COPD with questionable outpatient medical compliance. The patient has had compliance issues in the past related to her supplemental oxygen use and noninvasive ventilator utilization. She will be maintained on scheduled bronchodilators for now. Management as noted above. 4. History of hemorrhagic CVA/former tobacco dependency/history of cardiomyopathy/anxiety/depression Complicates care, management, recovery and prognosis. Okay to continue tube feeds. Physical therapy to work with the patient. Disposition planning per case management. This note was generated with [employer] dictation software. It may contain incorrect words, spelling, and punctuation that were not noted in checking the note before signing. Subjective Subjective The patient was seen and examined at the bedside this morning. Events from the last 24 hours have been reviewed. The patient is currently afebrile, hemodynamically stable and maintaining appropriate oxygen saturations on trach collar with an FiO2 of 30%. The patient is overall net +6.5 L for the hospitalization. Morning labs are stable. The patient has been experiencing some secretion output from her tracheostomy site. Objective Data Objective Data The patient's most recent lab work, culture data and imaging studies have all been personally reviewed.? Surface echocardiogram from June 2021 demonstrated normal LV size with an ejection fraction of 37%.? MRI brain only showed a similar-appearing right subdural fluid collection and bilateral posterior cerebral encephalomalacia.? Respiratory viral panel was negative.? Urine culture was positive for E. coli. Vital Signs: Vital Signs Temp Pulse Resp BP Pulse Ox O2 Del Method O2 Flow Rate 97.3 F L 110 H 36 H 113/54 L 96 Trach Collar 8 07/17/22 06:00 07/17/22 06:00 07/17/22 06:00 07/17/22 06:00 07/17/22 06:00 07/17/22 06:00 07/15/22 19:13 FiO2 30 07/16/22 18:00 Oxygen Flow Rate (L/min) 8 Oxygen Delivery Method Trach Collar Weight: 122 lb 9.232 oz Body Mass Index (BMI) 22.9 Intake & Output: Intake and Output for Last 24 Hours 07/15/22 07/16/22 07/17/22 23:59 23:59 23:59 Intake Total 1930 / 1930 1415 / 1415 2807 / 2807 Output Total 3800 / 3800 2650 / 3250 1050 / 1050 Balance -1870 / -1870 -1235 / -1835 1757 / 1757 Medical Nutrition Assessment Dietitian: Malnutrition Criteria Met Start: 06/30/22 10:32 Freq: Status: Active Protocol: Document 07/16/22 09:41 LO (Rec: 07/16/22 09:41 LO [id number]) Nutrition Malnutrition Evidence of Malnutrition Exists Yes Malnutrition (severe): Chronic Evidenced By Weight Loss (Severe),Physical Changes (Moderate) Clinical Problem Chronic Disease or Condition Related Malnutrition Etiology severe, chronic malnutrition related to predicted inadequate oral intake Signs/Symptoms as evidenced by wt loss of 23. 6#/14% x 9 months, moderate muscle wasting/fat loss in orbital, temporal, clavicle, and acromion areas per physical exam Status Active Problem Recommendation Dietitian Recommendations/Changes Continue via PEG- Vital AF 1.2 at goal rate of 55mL/hour w/ 100mL H2O flush every 4 hours to provide 1584 calories, 99 g protein, and 1670mL total fluid/day. Lab / Micro Data Attestation: I reviewed the patient's lab results. Result Diagrams: 07/17/22 03:38 07/17/22 03:38 Labs: Laboratory Results - last 24 hr 07/17/22 03:38: WBC 13.5 H, RBC 4.01 L, Hgb 11.3 L, Hct 38.6, MCV 96.3 D, MCH 28.2, MCHC 29.3 L D, RDW Std Deviation 63.5 H, RDW Coeff of Deonte 18.1 H, Plt Count 432, MPV 10.2, Immature Gran % (Auto) 1.600 H, Neut % (Auto) 71.1 H, Lymph % (Auto) 14.8 L, Dawson % (Auto) 10.0, Eos % (Auto) 1.8, Baso % (Auto) 0.7, Absolute Neuts (auto) 9.6 H, Absolute Lymphs (auto) 2.00, Nucleated RBC % 0 07/17/22 03:38: Sodium 139, Potassium 4.4, Chloride 106, Carbon Dioxide 30.0, Anion Gap 3 L, BUN 21 H, Creatinine 0.53 L, Estim Creat Clear Calc 45.16, Est GFR (MDRD) Af Amer 149, Est GFR (MDRD) Non-Af 123, BUN/Creatinine Ratio 39.8 H, Glucose 111 H, Calcium 9.3 Micro: Microbiology 07/03/22 03:10 Sputum, Induced/Lukens Gram Stain - Final 07/03/22 03:10 Sputum, Induced/Lukens Respiratory Culture - Final Culture exhibits no growth. 06/29/22 23:15 Blood Culture (Wb) - Anticubital Right Blood Culture - Final No growth in 5 days. 06/29/22 22:48 Blood Culture (Wb) - Anticubital Right Blood Culture - Final No growth in 5 days. 06/30/22 02:25 Sputum, Tracheal Aspirate Gram Stain - Final 06/30/22 02:25 Sputum, Tracheal Aspirate Respiratory Culture - Final 06/29/22 23:25 Urine Catheter - Fortune Urine Culture - Final Escherichia coli 06/30/22 02:35 Mucosa - Nasopharyngeal Respiratory Panel (PCR) - Final 06/29/22 23:30 Nasal Secretion SARS-CoV-2 & FLU Antigen (Rapid) - Final Radiography Diagnostic Testing: Radiology Impression Chest X-Ray 07/14/22 07:33 IMPRESSION: Mild increased markings at the left lung base. Improved aeration of the right upper lobe. Electronically Signed: Vinny Mcghee MD at 14:26 EST , Physical Exam Const alert and no apparent distress General Appearance: cooperative HEENT normocephalic and head/scalp atraumatic Eyes PERRL, EOMs intact bilaterally and conjunctivae normal Neck supple Neck Narrative: Stable tracheostomy site. Chest Chest Narrative: Increased AP diameter. Resp normal respiratory effort Effort and Inspection: tachypneic Auscultation: rhonchi and diminished lung sounds Cardio S1 normal heart sound and S2 normal heart sound Rate: tachycardic GI normal to inspection, nondistended, normoactive bowel sounds Inspection: GI tube present Extremity no clubbing, cyanosis or edema Skin no rashes or lesions noted Neuro moves all extremities and no focal motor deficits Psych Mood & Affect: anxious Charges/Coding Visit Charges Inpatient E&M: 68564 Subs Hosp L2
[2022-07-17] MEDS: QUEtiapine 100 MG Tablet 150 MG GT ×2 (10:17→20:39)
[2022-07-17] MEDS: Enoxaparin 40 MG/0.4 ML Syringe SC (10:17)
[2022-07-17] MEDS: busPIRone 5 MG Tablet 10 MG GT ×2 (10:17→20:41)
[2022-07-17] MEDS: Famotidine 20 MG Tablet GT ×2 (10:18→20:42)
[2022-07-17] MEDS: Furosemide 10 MG/ML Liquid 20 MG GT ×2 (10:18→17:14)
[2022-07-17] MEDS: Potassium Chloride Oral Soln 20 MEQ/15 ML UDC 40 MEQ GT ×2 (10:18→20:40)
[2022-07-17] MEDS: levETIRAcetam Oral Solution 500 MG/5 ML GT ×2 (10:18→20:40)
--- NOTE | 2022-07-17 11:31 | CASEMGMT ---
FINESSE LALA received call from Rachel at [facility] requesting updated clinicals for today so she can submit precert to [facility]. FINESSE LALA sent updated clinical through [facility] to Rachel. [facility] will continue to follow this patient and plan for a safe discharge.
--- NOTE | 2022-07-17 12:09 | ST.MBS ---
Modified Barium Swallow - Patient Information Study Date: 07/17/22 Study Time: 10:35 Direct Billable Minutes: 70 Total Minutes procedure & reportin Diagnosis: Acute & chronic respiratory failure w/ hypercapnia (J96.22) Referring Physician: Guero Tuttle Reason for Referral: Objectively assess swallow function, assess risk for aspiration, and determine recommendations for least restrictive diet textures and compensatory strategies to improve safety of swallow. Medical History: The patient is a 66 y/o F w/ PMHx: RLS, Hx EtOH Abuse, Anxiety and Depression, COPD with chronic respiratory failure with hypoxic and hypercapnia (2L NC), Chronic anemia, Hx Takotsubo cardiomyopathy, Chronic Systolic CHF, Hx CVA w/ most recent 01/2022 Hemorrhagic CVA requiring transfer to [facility] and surgical intervention at that time, Hx VTE, TIO, Former tobacco use who presented to the [facility] ED on 06/29/22 with history of increased confusion and forgetfulness the day prior, less responsiveness, and difficulty maintaining appropriate oxygenation. Pt admitted for management of respiratory failure and encephalopathy. She was intubated 06/30/2022 and extubated 07/02/22. 07/03/2022 pt re-intubated and trach placed 07/12/2022. Pt taken off mechanical ventilation on 07/13/2022. Pt tolerated 20 trials of ice/thin water via tsp, cup, and straw, as well as 5 tsp of applesauce with PLANT PRODUCTION WORKER on 07/17/2021 and was recommended for MBSS to assess swallow function, concern for silent aspiration, and consider the patient for advancement as appropriate. Current Diet Ordered: NPO with ice chips sparingly Dentition: WNL Mental Status: Impaired - Some difficulty following simple commands and confusion - pt reaching for PLANT PRODUCTION WORKER's computer during study Respiratory Status: Oxygenating on 4L/M nasal cannula - 6L O2 via nasal cannula - Penetration-Aspiration Scale Penetration-Aspiration Scale: OBJECTIVE ASSESSMENT OF SWALLOW FUNCTION (QUANTITATIVE ? PER TRIAL): PENETRATION / ASPIRATION SCALE (ARAIZA): 1 = does not enter airway 2 = enters airway/above vocal folds/ejected 3 = enters airway/above vocal folds/not ejected 4 = enters airway/contacts vocal folds/ejected 5 = enters airway/contacts vocal folds/not ejected 6 = enters airway/below vocal folds/ejected 7 = enters airway/below vocal folds/not ejected despite effort 8 = enters airway/below vocal folds/no effort VIDEOFLOROSCOPIC SCALE SCORE (ARAIZA): Grade I = aspiration of material that has penetrated into the laryngeal vestibule, intact cough reflex Grade II = aspiration < 10 % of the bolus, intact cough reflex Grade III = aspiration of < 10 % of the bolus, reduced cough reflex or aspiration of > 10 % of the bolus, intact cough reflex Grade IV = aspiration of > 10 % of the bolus, reduced cough reflex - Penetration-Aspiration Scale Score Thin Liquid via teaspoon Result: 1= does not enter airway Thin Liquid via teaspoon Trial 2 Result: 5= enters airways/contacts vocal folds/not ejected - Trace SILENT post prandial aspiration. Thin Liquid via small single sip from cup Result: 1= does not enter airway [place] Thick Liquid via teaspoon Result: 8= enters airway/below vocal folds/no effort Pudding via 1/2 teaspoon with esophageal screen Result: 1= does not enter airway - significantly increased pharyngeal residue Thin Liquid via single sip from straw Result: 8= enters airway/below vocal folds/no effort Thin Liquid via teaspoon Trial 3 Result: 8= enters airway/below vocal folds/no effort - Oral Phase Labial Seal: Escape beyond interlabial space; no extension beyond von border Tongue Control During Bolus Hold: Posterior escape of less than half of bolus Bolus Transport/Lingual Motion: Delayed initiation of tongue motion Oral Residue: Trace residue lining oral structures - Pharyngeal Phase Initiation of Pharyngeal Swallow: Bolus head at posterior laryngeal surgace of epiglottis Soft Palate Elevation: No bolus between soft palate and pharyngeal wall Laryngeal Elevation: Partial superior movement thyroid cart/partial apprx aryt-epig petiole Anterior Hyoid Excursion: Partial anterior movement Epiglottic Movement: Partial inversion Laryngeal Vestibule Closure at Height of Swallow: Incomplete; narrow column of air/contrast in laryngeal vestibule Pharyngeal Stripping Wave: Present - diminished Pharyngoesophageal Segment Opening: Parital distension and partial duration; parital obstruction of flow Tongue Base Retraction: Wide column of contrast between tongue base & post. pharyngeal wall Pharyngeal Residue: Majority of contrast within or on pharyngeal structures - ~50% of pudding - Esophageal Phase Esophageal Clearance: Esophageal retention w/ retrograde flow below pharyngoesophageal seg. - Diagnosis/Impression Diagnosis: Severe oropharyngeal phase dysphagia (R13.12) Impression: Of note, pt became tachycardic and hypotensive within minutes following the study. land lease information clerk, Coco, attended to the patient following the study and took the patient back to her room. The oral phase is primarily marked by.... -Decreased bolus control with premature posterior loss of >1/2 of pudding bolus to the posterior surface of the epiglottis prior to swallow onset. Premature loss of <1/2 of thin liquid trials. -Delayed tongue motion for A-P transport. -DID NOT TEST COOKIE due to pt appearing increasingly fatigued and PLANT PRODUCTION WORKER concern for choking due to poor pharyngeal clearance w/ pudding trial. The pharyngeal phase is primarily marked by... -Mild-moderate delayed initiation of swallow. -Decreased airway closure due to decreased laryngeal elevation, minimal anterior hyoid excursion, and partial epiglottic inversion. -Moderate-severe pharyngeal residues due to severely decreased tongue base retraction, minimal pharyngeal stripping wave, and decreased UES opening. -SILENT aspiration of thin via straw and tsp, nectar by tsp. Trace post prandial aspiration of thin by tsp. The esophageal phase is primarily marked by... -Minimal esophageal retention of pudding in mid and lower esophagus with minimal retrograde flow remaining well below the upper esophageal sphincter (UES). - Recommendations Diet: NPO - Strict NPO - recommend all nutrition/hydration be met via PEG Recommend Repeat Modified Barium Swallow: Yes Need for Skilled Speech Therapy Services: Yes Comment: Will recommend the patient for intensive dysphagia therapy to address severe deficits in oropharyngeal swallow function. Will recommend the patient for oropharyngeal strengthening to improve lingual control, tongue base retraction, laryngeal elevation, hyoid excursion, and pharyngeal contraction (Effortful, Lupe, CTAR, lingual resistance exercises). Will recommend trials of thin water (ice chips or thin water via tsp) with PLANT PRODUCTION WORKER ONLY at this time. Education Completed: 1. Described result of evaluation. - Educated RNRosalva, in results and recommendations of MBSS., 7. Pt requires further education on strategies & risks. - Status Active ST Patient: Active - Contact Information [facility] Speech Therapy:: Marni Maki M.A. [facility]-PLANT PRODUCTION WORKER Speech-Language Pathologist [facility] [address] [place] [address] [email or web address] [phone] 07/17/22 12:21
[2022-07-17] MEDS: oxyCODONE 5 MG Tablet GT (17:13)
[2022-07-17] MEDS: CHLORHEXIDINE GLUC 2% CLOTH 1 EACH TOWELETTE TOPICAL (20:42)
[2022-07-17] MEDS: Acetaminophen 650 MG/20 ML UDC GT (20:42)
[2022-07-18] VITALS (23 sets, daily range): BP systolic 86–143; BP diastolic 41–85; PULSE 98–120; RESP 20–36; TEMP 34.8–37.2; O2SAT 93–100
[2022-07-18] MEDS: oxyCODONE 5 MG Tablet GT (02:49)
[2022-07-18] MEDS: Phenytoin Na 100 MG/4 ML UDC GT ×3 (05:58→21:17)
--- NOTE | 2022-07-18 06:04 | PCM.PN.INT ---
Assessment & Plan Assessment/Plan (1) Acute and chronic respiratory failure with hypercapnia: PLAN: Plan RECOMMENDATIONS: 1. Continue trach collar and wean FiO2 to maintain saturations at or above 90%. 2. Continue tube feeds. 3. Continue antiepileptics, along with seizure precautions. 4. Continue scheduled bronchodilators. 5. Continue Seroquel as ordered. 6. Continue Lasix via G-tube as tolerated. 7. Mobilize patient as tolerated. 8. Continue BuSpar as ordered. 9. Disposition planning per case management. Awaiting pre-CERT for LTACH. 10. Given the patient's lack of further ICU needs, will sign off. Please call with any additional questions. IMPRESSIONS: 1. Acute on chronic combined respiratory failure The patient has known end-stage COPD and chronic hypoxemic respiratory failure, along with baseline CO2 retention. She has questionable compliance with her outpatient noninvasive ventilator. I do suspect that her acute respiratory decompensation may have been triggered by a postictal state and/or polypharmacy effects. Due to an inability to wean from invasive mechanical ventilatory support, the patient underwent tracheostomy and PEG tube placement. She is doing well from a respiratory perspective. The patient does not appear to require any additional ventilatory support. Plan to continue trach collar supplemental oxygen with a goal to wean FiO2 to maintain saturations at or above 90%. 2. Encephalopathy Improving, but remains impulsive. Likely metabolic in the setting of CO2 retention and/or related to postictal state in the setting of new onset seizure activity. In addition, there is some question as to whether possible polypharmacy may have also been contributing, as the patient was positive for benzodiazepines and opiates on her toxicology screen. Plan to continue current antiepileptics along with seizure precautions. The patient will be maintained on Seroquel and BuSpar as ordered. 3. History of end-stage COPD/chronic hypoxemic respiratory failure/obstructive sleep apnea/frequent COPD exacerbations The patient has a known history of end-stage COPD with questionable outpatient medical compliance. The patient has had compliance issues in the past related to her supplemental oxygen use and noninvasive ventilator utilization. She will be maintained on scheduled bronchodilators for now. Management as noted above. 4. History of hemorrhagic CVA/former tobacco dependency/history of cardiomyopathy/anxiety/depression Complicates care, management, recovery and prognosis. Okay to continue tube feeds. Physical therapy to work with the patient. Disposition planning per case management. This note was generated with Dragon dictation software. It may contain incorrect words, spelling, and punctuation that were not noted in checking the note before signing. Subjective Subjective The patient was seen and examined at the bedside this morning. Events from the last 24 hours have been reviewed. The patient is currently afebrile, hemodynamically stable and maintaining appropriate oxygen saturations on trach collar with an FiO2 of 30%. No issues were identified by the overnight nursing staff. The patient remains overall net +7.4 L for the hospitalization. Objective Data Objective Data The patient's most recent lab work, culture data and imaging studies have all been personally reviewed.? Surface echocardiogram from June 2021 demonstrated normal LV size with an ejection fraction of 37%.? MRI brain only showed a similar-appearing right subdural fluid collection and bilateral posterior cerebral encephalomalacia.? Respiratory viral panel was negative.? Urine culture was positive for E. coli. Vital Signs: Vital Signs Temp Pulse Resp BP Pulse Ox O2 Del Method O2 Flow Rate 98.8 F 98 27 H 110/52 L 97 Trach Collar 6 07/18/22 03:00 07/18/22 03:00 07/18/22 03:00 07/18/22 03:00 07/18/22 03:00 07/18/22 03:00 07/17/22 14:35 FiO2 30 07/18/22 03:00 Oxygen Flow Rate (L/min) 6 Oxygen Delivery Method Trach Collar Weight: 122 lb 9.232 oz Body Mass Index (BMI) 22.9 Intake & Output: Intake and Output for Last 24 Hours 07/16/22 07/17/22 07/18/22 23:59 23:59 23:59 Intake Total 1415 / 1415 4769.08 / 4769.08 100 / 100 Output Total 2650 / 3250 1525 / 2250 725 / 725 Balance -1235 / -1835 3244.08 / 2519.08 -625 / -625 Medical Nutrition Assessment Dietitian: Malnutrition Criteria Met Start: 06/30/22 10:32 Freq: Status: Active Protocol: Document 07/17/22 10:57 EMERSON (Rec: 07/17/22 10:57 EMERSON [id number]) Nutrition Malnutrition Evidence of Malnutrition Exists Yes Malnutrition (severe): Chronic Evidenced By Weight Loss (Severe),Physical Changes (Moderate) Clinical Problem Chronic Disease or Condition Related Malnutrition Etiology severe, chronic malnutrition related to predicted inadequate oral intake Signs/Symptoms as evidenced by 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 Monitor ability to resume po diet pending MBS and CLOTH NAPPING SUPERVISOR recommendations Lab / Micro Data Attestation: I reviewed the patient's lab results. Result Diagrams: 07/17/22 03:38 07/17/22 03:38 Labs: Laboratory Results - last 24 hr 07/17/22 03:38: WBC 13.5 H, RBC 4.01 L, Hgb 11.3 L, Hct 38.6, MCV 96.3 D, MCH 28.2, MCHC 29.3 L D, RDW Std Deviation 63.5 H, RDW Coeff of Deonte 18.1 H, Plt Count 432, MPV 10.2, Immature Gran % (Auto) 1.600 H, Neut % (Auto) 71.1 H, Lymph % (Auto) 14.8 L, [place] % (Auto) 10.0, Eos % (Auto) 1.8, Baso % (Auto) 0.7, Absolute Neuts (auto) 9.6 H, Absolute Lymphs (auto) 2.00, Nucleated RBC % 0 07/17/22 03:38: Sodium 139, Potassium 4.4, Chloride 106, Carbon Dioxide 30.0, Anion Gap 3 L, BUN 21 H, Creatinine 0.53 L, Estim Creat Clear Calc 45.16, Est GFR (MDRD) Af Amer 149, Est GFR (MDRD) Non-Af 123, BUN/Creatinine Ratio 39.8 H, Glucose 111 H, Calcium 9.3 Micro: Microbiology 07/03/22 03:10 Sputum, Induced/Lukens Gram Stain - Final 07/03/22 03:10 Sputum, Induced/Lukens Respiratory Culture - Final Culture exhibits no growth. 06/29/22 23:15 Blood Culture (Wb) - Anticubital Right Blood Culture - Final No growth in 5 days. 06/29/22 22:48 Blood Culture (Wb) - Anticubital Right Blood Culture - Final No growth in 5 days. 06/30/22 02:25 Sputum, Tracheal Aspirate Gram Stain - Final 06/30/22 02:25 Sputum, Tracheal Aspirate Respiratory Culture - Final 06/29/22 23:25 Urine Catheter - Fortune Urine Culture - Final Escherichia coli 06/30/22 02:35 Mucosa - Nasopharyngeal Respiratory Panel (PCR) - Final 06/29/22 23:30 Nasal Secretion SARS-CoV-2 & FLU Antigen (Rapid) - Final Radiography Diagnostic Testing: Radiology Impression Chest X-Ray 07/14/22 07:33 IMPRESSION: Mild increased markings at the left lung base. Improved aeration of the right upper lobe. Electronically Signed: Vinny Mcghee MD at 14:26 EST , Physical Exam Const alert and no apparent distress General Appearance: cooperative HEENT normocephalic and head/scalp atraumatic Eyes PERRL, EOMs intact bilaterally and conjunctivae normal Neck supple Neck Narrative: Stable tracheostomy site. Chest Chest Narrative: Increased AP diameter. Resp normal respiratory effort Effort and Inspection: tachypneic Auscultation: diminished lung sounds Cardio regular rate, regular rhythm, S1 normal heart sound and S2 normal heart sound GI normal to inspection, nondistended, normoactive bowel sounds Inspection: GI tube present Extremity no clubbing, cyanosis or edema Skin no rashes or lesions noted Neuro CN's II-XII intact bilaterally, moves all extremities and no focal motor deficits Psych Mood & Affect: anxious Charges/Coding Visit Charges Inpatient E&M: 22950 Subs Hosp L2
--- NOTE | 2022-07-18 07:23 | PN.HOSP_ITS ---
Subjective Subjective Follow-up acute respiratory failure ? Patient has been tolerating the vent during the night. Awaiting transfer to [facility] Objective Data Objective Data Vital Signs: Vital Signs Temp Pulse Resp BP Pulse Ox O2 Del Method O2 Flow Rate 98.9 F 116 H 27 H 121/78 H 96 Trach Collar 6 07/18/22 07:00 07/18/22 07:00 07/18/22 07:00 07/18/22 07:00 07/18/22 07:00 07/18/22 07:00 07/17/22 14:35 FiO2 30 07/18/22 07:00 Oxygen Flow Rate (L/min) 6 Oxygen Delivery Method Trach Collar Weight: 55.6 kg Body Mass Index (BMI) 22.9 Intake & Output: Intake and Output for Last 24 Hours 07/16/22 07/17/22 07/18/22 23:59 23:59 23:59 Intake Total 1415 / 1415 4769.08 / 4769.08 100 / 100 Output Total 2650 / 3250 1525 / 2250 725 / 725 Balance -1235 / -1835 3244.08 / 2519.08 -625 / -625 Medical Nutrition Assessment Dietitian: Malnutrition Criteria Met Start: 06/30/22 10:32 Freq: Status: Active Protocol: Document 07/17/22 10:57 EMERSON (Rec: 07/17/22 10:57 EMERSON [id number]) Nutrition Malnutrition Evidence of Malnutrition Exists Yes Malnutrition (severe): Chronic Evidenced By Weight Loss (Severe),Physical Changes (Moderate) Clinical Problem Chronic Disease or Condition Related Malnutrition Etiology severe, chronic malnutrition related to predicted inadequate oral intake Signs/Symptoms as evidenced by 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 Monitor ability to resume po diet pending MBS and CLEANER AND TRIMMER recommendations Lab / Micro Data Result Diagrams: 07/17/22 03:38 07/17/22 03:38 Micro: Microbiology 07/03/22 03:10 Sputum, Induced/Lukens Gram Stain - Final 07/03/22 03:10 Sputum, Induced/Lukens Respiratory Culture - Final Culture exhibits no growth. 06/29/22 23:15 Blood Culture (Wb) - Anticubital Right Blood Culture - Final No growth in 5 days. 06/29/22 22:48 Blood Culture (Wb) - Anticubital Right Blood Culture - Final No growth in 5 days. 06/30/22 02:25 Sputum, Tracheal Aspirate Gram Stain - Final 06/30/22 02:25 Sputum, Tracheal Aspirate Respiratory Culture - Final 06/29/22 23:25 Urine Catheter - Fortune Urine Culture - Final Escherichia coli 06/30/22 02:35 Mucosa - Nasopharyngeal Respiratory Panel (PCR) - Final 06/29/22 23:30 Nasal Secretion SARS-CoV-2 & FLU Antigen (Rapid) - Final Physical Exam Narrative GENERAL: cooperative HEENT: Atraumatic; trach collar in place EYES; Anicteric, Normal Conjunctiva NECK; supple, normal thyroid, RESPIRATORY: Diminished to auscultation CARDIOVASCULAR:? Regular S1 S2, GI:? soft, normoactive bowel sounds, PEG tube in place : No Renal angle tenderness; EXTREMITIES:? No edema, no clubbing, MUSCULOSKELETAL:? no muscle wasting NEURO:? Awake;? no lateralizing signs. SKIN:? No Rash PSYCH; Flat? affect Assessment & Plan Assessment/Plan (1) Acute and chronic respiratory failure with hypercapnia: PLAN: Plan Patient is a 66-year-old lady with prolonged hospital stay.? Initially admitted with seizure-like activity followed by episode of unresponsiveness.? Patient underwent trach on 07/10/2022 and PEG tube on 07/09/2022 1.? Acute metabolic encephalopathy (present on admission) -etiology was not clear was thought to be due to combination of end-stage COPD as well as possible postictal state from seizure versus polypharmacy.? As stated above patient had a protracted stay on the vent was treated and underwent PEG tube.? Patient as of this a.m. is awake and communicative 07/14/2022; patient encephalopathy has since resolved ? 07/17/2022 had episode of delirium during the night. Back to baseline. 2.? Status post trach ? Following acute on chronic hypoxic respiratory failure due to above.? Trach care deferred to pulmonary medicine.? Did personally review chest x-ray performed on 07/12/2021 demonstrated bibasilar atelectasis -07/15/2022 patient seen remains on trach collar.? She apparently failed swallow eval the day prior.? Patient was placed on the vent during the night. ? 07/16/2022; patient tolerated the vent during the night. -07/18/2022; ? Patient has been tolerating the vent during the night. Awaiting transfer to LTAC 3.? Dysphagia ? Secondary to prolonged stay on the vent patient underwent PEG tube placement on 07/09/2022.? Tube feed as recommended by dietitian ? 07/14/2022 patient has tolerated tube feeds well so far. 4.? Suspected seizure disorder -patient is on Keppra did continue 5.? Severe protein calorie malnutrition ? Secondary to patient multiple medical comorbidities.? Seen by dietitian recommendations reviewed 6.? Acute cystitis with E. coli ? Patient completed appropriate antibiotic therapy 7.? Acute on chronic systolic heart failure with history of Takotsubo cardiomyopathy ? Patient patient is is on Lasix continued.? BMP ordered for a.m. to monitor response to Lasix 8.? History of hemorrhagic CVA ? MRI on admission did demonstrate right subdural fluid collection and bilateral posterior cerebral encephalomalacia..? Requested for PT OT eval 9.? Essential hypertension -Blood pressure stable.? Currently not on any antihypertensives 10.? Anemia - Secondary to chronic disorder monitoring H&H and transfuse if patient becomes symptomatic or hemoglobin falls below? 7.? CBC ordered for a.m. 11.? DVT prophylaxis ? Patient is on SC Lovenox continued 12.? Physical deconditioning - Requested for PT OT eval and community mental health social worker to assist with discharge planning Time spent in the patient's overall evaluation,decision-making process, review of diagnostic data, adjustment of management, discussion with other providers, nursing nursing and ancillary staff involved in patient's care documentation, 35? Minutes Charges/Coding Visit Charges Inpatient E&M: 00358 Subs Hosp L2
[2022-07-18] MEDS: Ipratropium/Albuterol Sulfate 3 ML AMPUL.NEB INHALATION ×3 (07:35→19:43)
[2022-07-18] MEDS: Furosemide 10 MG/ML Liquid 20 MG GT ×2 (08:51→18:03)
[2022-07-18] MEDS: Enoxaparin 40 MG/0.4 ML Syringe SC (08:51)
[2022-07-18] MEDS: Potassium Chloride Oral Soln 20 MEQ/15 ML UDC 40 MEQ GT ×2 (08:51→21:17)
[2022-07-18] MEDS: levETIRAcetam Oral Solution 500 MG/5 ML GT ×2 (08:51→21:17)
[2022-07-18] MEDS: busPIRone 5 MG Tablet 10 MG GT ×2 (08:51→21:16)
[2022-07-18] MEDS: QUEtiapine 100 MG Tablet 150 MG GT ×2 (08:52→21:17)
[2022-07-18] MEDS: Famotidine 20 MG Tablet GT ×2 (08:52→21:16)
--- NOTE | 2022-07-18 18:10 | NURSING ---
Daughter of pt., Ameena notified of pt. moving to [facility]
[2022-07-18] MEDS: Vital AF 1.2 Cal Liquid 1,000 ML 55 ML GT (21:16)
--- NOTE | 2022-07-18 21:45 | NURSING ---
Tube feed still on hold for dilantin medication-see MAR
[2022-07-19] VITALS (24 sets, daily range): BP systolic 97–142; BP diastolic 38–84; PULSE 89–124; RESP 20–36; TEMP 36.2–37; O2SAT 78–98
[2022-07-19] MEDS: oxyCODONE 5 MG Tablet GT (00:59)
[2022-07-19] MEDS: Acetaminophen 650 MG/20 ML UDC GT ×2 (04:35→19:10)
--- NOTE | 2022-07-19 05:15 | NURSING ---
Patient oxygen dropped to 68% was lethargic. CHIEF MECHANICAL ENGINEER called, by time MD arrived patient was awake and O2 was improved no new orders. Will continue to monitor
[2022-07-19] MEDS: Phenytoin Na 100 MG/4 ML UDC GT ×3 (05:51→22:58)
[2022-07-19] MEDS: Ipratropium/Albuterol Sulfate 3 ML AMPUL.NEB INHALATION ×3 (07:10→20:05)
--- NOTE | 2022-07-19 07:51 | PCM.PN.HOSP ---
Subjective Subjective Spectra failure Patient seen transferred from the ICU to [facility] floor. Trach collar remains in place. Awaiting transfer to a [facility] facility/[facility]AC pending insurance precertification Objective Data Objective Data Vital Signs: Vital Signs Temp Pulse Resp BP Pulse Ox O2 Del Method O2 Flow Rate 97.3 F L 114 H 20 H 142/84 H 96 Trach Collar 8 07/19/22 03:00 07/19/22 03:00 07/19/22 03:00 07/19/22 03:00 07/19/22 03:00 07/19/22 03:00 07/19/22 00:01 FiO2 28 07/19/22 03:00 Oxygen Flow Rate (L/min) 8 Oxygen Delivery Method Trach Collar Weight: 56.5 kg Body Mass Index (BMI) 22.9 Intake & Output: Intake and Output for Last 24 Hours 07/17/22 07/18/22 07/19/22 23:59 23:59 23:59 Intake Total 4769.08 / 4769.08 1388.25 / 1388.25 251.75 / 251.75 Output Total 1525 / 2250 2375 / 2375 Balance 3244.08 / 2519.08 -986.75 / -986.75 251.75 / 251.75 Medical Nutrition Assessment Dietitian: Malnutrition Criteria Met Start: 06/30/22 10:32 Freq: Status: Active Protocol: Document 07/17/22 10:57 EMERSON (Rec: 07/17/22 10:57 EMERSON [id number]) Nutrition Malnutrition Evidence of Malnutrition Exists Yes Malnutrition (severe): Chronic Evidenced By Weight Loss (Severe),Physical Changes (Moderate) Clinical Problem Chronic Disease or Condition Related Malnutrition Etiology severe, chronic malnutrition related to predicted inadequate oral intake Signs/Symptoms as evidenced by 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 Monitor ability to resume po diet pending MBS and CORE LAYER MACHINE OPERATOR recommendations Lab / Micro Data Result Diagrams: 07/17/22 03:38 07/17/22 03:38 Micro: Microbiology 07/03/22 03:10 Sputum, Induced/Lukens Gram Stain - Final 07/03/22 03:10 Sputum, Induced/Lukens Respiratory Culture - Final Culture exhibits no growth. 06/29/22 23:15 Blood Culture (Wb) - Anticubital Right Blood Culture - Final No growth in 5 days. 06/29/22 22:48 Blood Culture (Wb) - Anticubital Right Blood Culture - Final No growth in 5 days. 06/30/22 02:25 Sputum, Tracheal Aspirate Gram Stain - Final 06/30/22 02:25 Sputum, Tracheal Aspirate Respiratory Culture - Final 06/29/22 23:25 Urine Catheter - Fortune Urine Culture - Final Escherichia coli 06/30/22 02:35 Mucosa - Nasopharyngeal Respiratory Panel (PCR) - Final 06/29/22 23:30 Nasal Secretion SARS-CoV-2 & FLU Antigen (Rapid) - Final Physical Exam Narrative GENERAL: cooperative HEENT: Atraumatic; trach collar in place EYES; Anicteric, Normal Conjunctiva NECK; supple, normal thyroid, RESPIRATORY: Diminished to auscultation CARDIOVASCULAR:? Regular S1 S2, GI:? soft, normoactive bowel sounds, PEG tube in place : No Renal angle tenderness; EXTREMITIES:? No edema, no clubbing, MUSCULOSKELETAL:? no muscle wasting NEURO:? Awake;? no lateralizing signs. SKIN:? No Rash PSYCH; Flat? affect Assessment & Plan Assessment/Plan (1) Acute and chronic respiratory failure with hypercapnia: PLAN: Plan Patient is a 66-year-old lady with prolonged hospital stay.? Initially admitted with seizure-like activity followed by episode of unresponsiveness.? Patient underwent trach on 07/10/2022 and PEG tube on 07/09/2022 1.? Acute metabolic encephalopathy (present on admission) -etiology was not clear was thought to be due to combination of end-stage COPD as well as possible postictal state from seizure versus polypharmacy.? As stated above patient had a protracted stay on the vent was treated and underwent PEG tube.? Patient as of this a.m. is awake and communicative 07/14/2022; patient encephalopathy has since resolved ? 07/17/2022 had episode of delirium during the night. Back to baseline. 2.? Status post trach ? Following acute on chronic hypoxic respiratory failure due to above.? Trach care deferred to pulmonary medicine.? Did personally review chest x-ray performed on 07/12/2021 demonstrated bibasilar atelectasis -07/15/2022 patient seen remains on trach collar.? She apparently failed swallow eval the day prior.? Patient was placed on the vent during the night. ? 07/16/2022; patient tolerated the vent during the night. -07/18/2022; ? Patient has been tolerating the vent during the night. Awaiting transfer to LTAC -07/19/2022; Patient seen transferred from the ICU to [facility] floor. Trach collar remains in place. Awaiting transfer to a [facility] facility/LTAC pending insurance precertification 3.? Dysphagia ? Secondary to prolonged stay on the vent patient underwent PEG tube placement on 07/09/2022.? Tube feed as recommended by dietitian ? 07/14/2022 patient has tolerated tube feeds well so far. 4.? Suspected seizure disorder -patient is on Keppra did continue 5.? Severe protein calorie malnutrition ? Secondary to patient multiple medical comorbidities.? Seen by dietitian recommendations reviewed 6.? Acute cystitis with E. coli ? Patient completed appropriate antibiotic therapy 7.? Acute on chronic systolic heart failure with history of Takotsubo cardiomyopathy ? Patient patient is is on Lasix continued.? BMP ordered for a.m. to monitor response to Lasix 8.? History of hemorrhagic CVA ? MRI on admission did demonstrate right subdural fluid collection and bilateral posterior cerebral encephalomalacia..? Requested for PT OT eval 9.? Essential hypertension -Blood pressure stable.? Currently not on any antihypertensives 10.? Anemia - Secondary to chronic disorder monitoring H&H and transfuse if patient becomes symptomatic or hemoglobin falls below? 7.? CBC ordered for a.m. 11.? DVT prophylaxis ? Patient is on SC Lovenox continued 12.? Physical deconditioning - Requested for PT OT eval and health care social worker to assist with discharge planning Time spent in the patient's overall evaluation,decision-making process, review of diagnostic data, adjustment of management, discussion with other providers, nursing nursing and ancillary staff involved in patient's care documentation, 36? Minutes Charges/Coding Visit Charges Inpatient E&M: 13467 Subs Hosp L2
[2022-07-19] MEDS: busPIRone 5 MG Tablet 10 MG GT ×2 (10:15→22:56)
[2022-07-19] MEDS: Potassium Chloride Oral Soln 20 MEQ/15 ML UDC 40 MEQ GT ×2 (10:16→22:58)
[2022-07-19] MEDS: QUEtiapine 100 MG Tablet 150 MG GT ×2 (10:16→22:59)
[2022-07-19] MEDS: Enoxaparin 40 MG/0.4 ML Syringe SC (10:17)
[2022-07-19] MEDS: Furosemide 10 MG/ML Liquid 20 MG GT ×2 (10:17→17:23)
[2022-07-19] MEDS: Famotidine 20 MG Tablet GT ×2 (10:19→23:00)
[2022-07-19] MEDS: levETIRAcetam Oral Solution 500 MG/5 ML GT ×2 (10:20→22:58)
[2022-07-19] MEDS: 0.9% Saline Lock 10 ML Syringe IV (10:20)
[2022-07-19] MEDS: Vital AF 1.2 Cal Liquid 1,000 ML 55 ML GT (23:34)
[2022-07-20] VITALS (33 sets, daily range): BP systolic 91–133; BP diastolic 37–81; PULSE 104–121; RESP 14–34; TEMP 36.1–37.2; O2SAT 81–100
[2022-07-20] MEDS: Ipratropium/Albuterol Sulfate 3 ML AMPUL.NEB INHALATION ×4 (03:10→19:25)
[2022-07-20] MEDS: Phenytoin Na 100 MG/4 ML UDC GT ×3 (06:01→21:32)
[2022-07-20 09:05] LABS: ALB/GLOB Ratio 0.5 RATIO (0.9-2.4); AST(SGOT) 20 U/L (15-37); Alanine Aminotransfer ALT/SGPT 45 U/L (13-56); Albumin, Serum 2.7 g/dL (3.2-5.0); Alkaline Phosphatase 114 U/L (45-117); Anion Gap 7 (5-15); BUN 23 mg/dL (7-18); BUN/Creat Ratio 46.2 RATIO (10-20); Calcium,Total 9.6 mg/dL (8.5-10.1); Chloride 99 mmol/L (98-107); EST Glomerular Filtration Rate 131 mL/min (>60); Est Glom Filt Rate - Afr Amer 159 mL/min (>60); Estimated Creatinine Clearance 45.16 ml/min; Globulin 5.1 g/dL (2.2-4.2); Glucose 118 mg/dL (74-106); Potassium 4.8 mmol/L (3.5-5.1); Protein, Total 7.8 g/dL (6.4-8.2); Sodium Level 141 mmol/L (136-145)
[2022-07-20 09:19] LABS: Absolute Lymphocyte Count 1.24 X10^3/uL (0.83-4.51); Absolute Neutrophil Count 9.2 X10^3/uL (2.0-7.7); Basophil# 0.06 X10^3/uL; Basophil% 0.5 % (0-1); Eosinophil# 0.17 X10^3/uL; Eosinophils% 1.5 % (0-5); Hematocrit 33.7 % (37-47); Hemoglobin 9.8 g/dL (12.0-15.0); Lymphocyte # 1.24 X10^3/ul (0.83-4.51); Lymphocyte % 10.6 % (19-41); Mean Corp Hgb Conc 29.1 g/dL (32-36); Mean Corpuscular Hgb 28.2 pg (27.0-32.0); Mean Corpuscular Volume 96.8 fL (81-99); Monocyte# 0.91 X10^3/uL; Monocyte% 7.8 % (0-10); NRBC Flagged by Analyzer 0 % (0-5); Neutrophil # 9.21 X10^3/uL (2.7-7.7); Neutrophil % 78.5 % (47-70); Platelet Count 400 K/mm3 (150-450); RBC Distribution Width CV 16.5 % (11.6-14.6); RBC Distribution Width SD 58.7 fl (35.1-43.9); Red Blood Count 3.48 M/mm3 (4.2-5.4); White Blood Count 11.7 K/mm3 (4.4-11.0)
[2022-07-20] MEDS: Potassium Chloride Oral Soln 20 MEQ/15 ML UDC 40 MEQ GT ×2 (09:27→21:33)
[2022-07-20] MEDS: QUEtiapine 100 MG Tablet 150 MG GT ×2 (09:27→21:33)
[2022-07-20] MEDS: Enoxaparin 40 MG/0.4 ML Syringe SC (09:27)
[2022-07-20] MEDS: levETIRAcetam Oral Solution 500 MG/5 ML GT ×2 (09:28→21:32)
[2022-07-20] MEDS: busPIRone 5 MG Tablet 10 MG GT ×2 (09:28→21:32)
[2022-07-20] MEDS: Furosemide 10 MG/ML Liquid 20 MG GT ×2 (09:28→18:16)
[2022-07-20] MEDS: Famotidine 20 MG Tablet GT ×2 (09:28→21:34)
--- NOTE | 2022-07-20 11:31 | CASEMGMT ---
FINESSE LALA received message from Rachel, precert is still pending and requesting updated clinicals. FINESSE LALA sent updated clinical information to Rachel via [employer]. [facility] will continue to follow this patient and plan for a safe discharge.
--- NOTE | 2022-07-20 12:37 | PCM.PN.HOSP ---
Subjective Subjective Follow-up on acute on chronic respiratory failure/metabolic encephalopathy/dysphagia: Patient was seen and examined. Family was at bedside, were eager to find out when patient was going to be allowed to swallow. I explained the findings of the modified barium swallow and a sense of the PEG tube patient denied any new complaints. Awaiting on discharge to [facility] facility. Objective Data Objective Data Vital Signs: Vital Signs Temp Pulse Resp BP Pulse Ox O2 Del Method O2 Flow Rate 98.5 F 120 H 32 H 105/65 98 Trach Collar 8 07/20/22 12:02 07/20/22 12:02 07/20/22 12:02 07/20/22 12:02 07/20/22 12:02 07/20/22 12:02 07/20/22 08:08 FiO2 40 07/20/22 11:00 Oxygen Flow Rate (L/min) 8 Oxygen Delivery Method Trach Collar Weight: 57.1 kg Body Mass Index (BMI) 22.9 Intake & Output: Intake and Output for Last 24 Hours 07/18/22 07/19/22 07/20/22 23:59 23:59 23:59 Intake Total 1388.25 / 1388.25 1487.92 / 1487.92 681.08 / 681.08 Output Total 2375 / 2375 400 / 400 Balance -986.75 / -986.75 1087.92 / 1087.92 681.08 / 681.08 Medical Nutrition Assessment Dietitian: Malnutrition Criteria Met Start: 06/30/22 10:32 Freq: Status: Active Protocol: Document 07/17/22 10:57 EMERSON (Rec: 07/17/22 10:57 EMERSON [id number]) Nutrition Malnutrition Evidence of Malnutrition Exists Yes Malnutrition (severe): Chronic Evidenced By Weight Loss (Severe),Physical Changes (Moderate) Clinical Problem Chronic Disease or Condition Related Malnutrition Etiology severe, chronic malnutrition related to predicted inadequate oral intake Signs/Symptoms as evidenced by wt loss of 23. 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 Monitor ability to resume po diet pending MBS and CASH GRAIN GROWER recommendations Lab / Micro Data Result Diagrams: 07/20/22 09:10 07/20/22 08:38 Labs: Laboratory Results - last 24 hr 07/20/22 08:38: Sodium 141, Potassium 4.8, Chloride 99, Carbon Dioxide 35.0 H, Anion Gap 7, BUN 23 H, Creatinine 0.50 L, Estim Creat Clear Calc 45.16, Est GFR (MDRD) Af Amer 159, Est GFR (MDRD) Non-Af 131, BUN/Creatinine Ratio 46.2 H, Glucose 118 H, Calcium 9.6, Total Bilirubin 0.20, AST 20, ALT 45, Alkaline Phosphatase 114, Total Protein 7.8, Albumin 2.7 L, Globulin 5.1 H, Albumin/Globulin Ratio 0.5 L 07/20/22 09:10: WBC 11.7 H, RBC 3.48 L, Hgb 9.8 L, Hct 33.7 L, MCV 96.8, MCH 28.2, MCHC 29.1 L, RDW Std Deviation 58.7 H, RDW Coeff of Deonte 16.5 H, Plt Count 400, MPV 10.0, Immature Gran % (Auto) 1.100 H, Neut % (Auto) 78.5 H, Lymph % (Auto) 10.6 L, [place] % (Auto) 7.8, Eos % (Auto) 1.5, Baso % (Auto) 0.5, Absolute Neuts (auto) 9.2 H, Absolute Lymphs (auto) 1.24, Nucleated RBC % 0 Micro: Microbiology 07/20/22 05:29 Sputum, Induced/Lukens Gram Stain - Final 07/03/22 03:10 Sputum, Induced/Lukens Gram Stain - Final 07/03/22 03:10 Sputum, Induced/Lukens Respiratory Culture - Final Culture exhibits no growth. 06/29/22 23:15 Blood Culture (Wb) - Anticubital Right Blood Culture - Final No growth in 5 days. 06/29/22 22:48 Blood Culture (Wb) - Anticubital Right Blood Culture - Final No growth in 5 days. 06/30/22 02:25 Sputum, Tracheal Aspirate Gram Stain - Final 06/30/22 02:25 Sputum, Tracheal Aspirate Respiratory Culture - Final 06/29/22 23:25 Urine Catheter - Fortune Urine Culture - Final Escherichia coli 06/30/22 02:35 Mucosa - Nasopharyngeal Respiratory Panel (PCR) - Final 06/29/22 23:30 Nasal Secretion SARS-CoV-2 & FLU Antigen (Rapid) - Final Physical Exam Narrative Physical exam: General: Alert, Oriented x3, Cooperative, appears frail HEENT: Status post tracheostomy, trach collar Oral: Moist Mucosa Neck: Supple Lungs: Diminished to auscultation Cardiovascular: HS I+II, regular, no murmurs Abdomen: PEG tube in situ, bowel Sounds Present, Soft, Non Tender Extremities: No edema Skin: No rashes, No breakdown Neurological: Grossly intact Psych/Mental Status: Appropriate Assessment & Plan Assessment/Plan (1) Acute and chronic respiratory failure with hypercapnia: PLAN: Plan 1.?Acute metabolic encephalopathy, POA, appears resolved (present on admission) Etiology 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 Acute on chronic hypoxic respiratory failure, status post tracheostomy (07/10/22) Continue on breathing treatment 3. Dysphagia, severe oropharyngeal phase status post PEG tube, continue PEG tube (07/09/22) Speech therapy following, last modified barium eval was 07/17/22 4. Suspected seizure disorder, continue Keppra 5. Severe protein calorie malnutrition, status post tube feeds, interior design coordinator following 6. Acute E. coli UTI, completed antibiotic 7. Acute on chronic systolic heart failure with history of Takotsubo cardiomyopathy Continue Lasix 8. History of hemorrhagic CVA MRI on admission showed right subdural fluid collection and bilateral posterior cerebral encephalomalacia 9. Anemia, microcytic microchromic, hemoglobin remains at 9.8, will check iron stores 10.? DVT prophylaxis -Lovenox subcu Charges/Coding Visit Charges Inpatient E&M: 63163 Subs Hosp L2
[2022-07-20] MEDS: Jevity 1.5 1,000 ML 40 ML GT (16:15)
[2022-07-20] MEDS: oxyCODONE 5 MG Tablet GT (21:34)
[2022-07-21] VITALS (29 sets, daily range): BP systolic 89–130; BP diastolic 37–73; PULSE 90–118; RESP 14–30; TEMP 36.1–37.3; O2SAT 84–100
--- NOTE | 2022-07-21 00:43 | CPS ---
trach tube cuff was inflated with approximately 6 cc of air before going on bipap this evening. Pt was desating due to brief periods of apnea, so bipap with a back up rate was initiated at 2130..07/20/22
[2022-07-21] MEDS: oxyCODONE 5 MG Tablet GT (05:09)
[2022-07-21] MEDS: Phenytoin Na 100 MG/4 ML UDC GT ×3 (05:09→21:52)
[2022-07-21 06:08] LABS: Absolute Lymphocyte Count 1.87 X10^3/uL (0.83-4.51); Absolute Neutrophil Count 5.9 X10^3/uL (2.0-7.7); Basophil# 0.06 X10^3/uL; Basophil% 0.7 % (0-1); Eosinophil# 0.18 X10^3/uL; Hematocrit 32.3 % (37-47); Hemoglobin 9.4 g/dL (12.0-15.0); Lymphocyte # 1.87 X10^3/ul (0.83-4.51); Lymphocyte % 20.8 % (19-41); Mean Corp Hgb Conc 29.1 g/dL (32-36); Mean Corpuscular Hgb 28.4 pg (27.0-32.0); Mean Corpuscular Volume 97.6 fL (81-99); Monocyte# 0.93 X10^3/uL; Monocyte% 10.3 % (0-10); NRBC Flagged by Analyzer 0 % (0-5); Neutrophil # 5.85 X10^3/uL (2.7-7.7); Neutrophil % 65.1 % (47-70); Platelet Count 405 K/mm3 (150-450); RBC Distribution Width CV 16.2 % (11.6-14.6); RBC Distribution Width SD 57.6 fl (35.1-43.9); Red Blood Count 3.31 M/mm3 (4.2-5.4)
[2022-07-21 06:48] LABS: ALB/GLOB Ratio 0.6 RATIO (0.9-2.4); AST(SGOT) 15 U/L (15-37); Alanine Aminotransfer ALT/SGPT 43 U/L (13-56); Albumin, Serum 2.8 g/dL (3.2-5.0); Alkaline Phosphatase 117 U/L (45-117); Anion Gap 4 (5-15); BUN 25 mg/dL (7-18); BUN/Creat Ratio 43.1 RATIO (10-20); Calcium,Total 9.5 mg/dL (8.5-10.1); Chloride 98 mmol/L (98-107); Creatinine, Serum 0.58 mg/dL (0.55-1.02); EST Glomerular Filtration Rate 110 mL/min (>60); Est Glom Filt Rate - Afr Amer 133 mL/min (>60); Estimated Creatinine Clearance 45.16 ml/min; Globulin 4.7 g/dL (2.2-4.2); Glucose 96 mg/dL (74-106); Potassium 4.5 mmol/L (3.5-5.1); Protein, Total 7.5 g/dL (6.4-8.2); Sodium Level 139 mmol/L (136-145)
[2022-07-21] MEDS: Ipratropium/Albuterol Sulfate 3 ML AMPUL.NEB INHALATION ×3 (07:22→19:48)
--- NOTE | 2022-07-21 10:47 | CASEMGMT ---
FINESSE LALA called Rachel at [facility] regarding Ltach precert. Per Rachel, she is still awaiting precert from [facility]. Rachel states she will call with update when available. SPIKE will continue to follow this patient and plan for a safe discharge.
[2022-07-21] MEDS: Potassium Chloride Oral Soln 20 MEQ/15 ML UDC 40 MEQ GT ×2 (11:07→21:52)
[2022-07-21] MEDS: busPIRone 5 MG Tablet 10 MG GT ×2 (11:08→21:51)
[2022-07-21] MEDS: Furosemide 10 MG/ML Liquid 20 MG GT (11:09)
[2022-07-21] MEDS: levETIRAcetam Oral Solution 500 MG/5 ML GT ×2 (11:09→21:52)
[2022-07-21] MEDS: Enoxaparin 40 MG/0.4 ML Syringe SC (11:09)
[2022-07-21] MEDS: Famotidine 20 MG Tablet GT ×2 (11:10→21:51)
[2022-07-21] MEDS: QUEtiapine 100 MG Tablet 150 MG GT ×2 (11:10→21:50)
--- NOTE | 2022-07-21 14:19 | PN.HOSP_ITS ---
Subjective Subjective Follow-up on acute on chronic respiratory failure/metabolic encephalopathy/dysphagia: Patient was seen and examined.? No acute events. Awaiting on discharge to detention facility. Objective Data Objective Data Vital Signs: Vital Signs Temp Pulse Resp BP Pulse Ox O2 Del Method O2 Flow Rate 98.5 F 105 H 20 H 89/51 L 84 Bi-pap 8 07/21/22 09:00 07/21/22 13:25 07/21/22 13:25 07/21/22 12:00 07/21/22 12:00 07/21/22 12:00 07/20/22 20:07 FiO2 30 07/21/22 11:57 Oxygen Flow Rate (L/min) 8 Oxygen Delivery Method Bi-pap Weight: 55 kg Body Mass Index (BMI) 22.9 Intake & Output: Intake and Output for Last 24 Hours 07/19/22 07/20/22 07/21/22 23:59 23:59 23:59 Intake Total 1487.92 / 1487.92 1227.75 / 1227.75 567.00 / 567.00 Output Total 400 / 400 0 / 0 Balance 1087.92 / 1087.92 1227.75 / 1227.75 567.00 / 567.00 Medical Nutrition Assessment Dietitian: Malnutrition Criteria Met Start: 06/30/22 10:32 Freq: Status: Active Protocol: Document 07/20/22 13:52 RMA (Rec: 07/20/22 13:52 RMA [id number]) Nutrition Malnutrition Evidence of Malnutrition Exists Yes Malnutrition (severe): Chronic Evidenced By Weight Loss (Severe),Physical Changes (Moderate) Clinical Problem Chronic Disease or Condition Related Malnutrition Etiology severe, chronic malnutrition related to predicted inadequate oral intake Signs/Symptoms as evidenced by 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 2.) Suggest start with Jevity 1.5 kelvin at 40 ml/hr and increase as tolerated by 10 ml /hr Q 4-6 hours to goal rate 80 ml/hr. TF at goal rate with flushes will provide 1440 kcal, 61 gm pro and 1450 ml free water per day. 3.) Pt is to remain NPO so, TF will meet~100% estimated nutrition needs. Lab / Micro Data Result Diagrams: 07/21/22 05:40 07/21/22 05:40 Labs: Laboratory Results - last 24 hr 07/21/22 05:40: WBC 9.0, RBC 3.31 L, Hgb 9.4 L, Hct 32.3 L, MCV 97.6, MCH 28.4, MCHC 29.1 L, RDW Std Deviation 57.6 H, RDW Coeff of Deonte 16.2 H, Plt Count 405, MPV 10.0, Immature Gran % (Auto) 1.100 H, Neut % (Auto) 65.1, Lymph % (Auto) 20.8, [place] % (Auto) 10.3 H, Eos % (Auto) 2.0, Baso % (Auto) 0.7, Absolute Neuts (auto) 5.9, Absolute Lymphs (auto) 1.87, Nucleated RBC % 0 07/21/22 05:40: Sodium 139, Potassium 4.5, Chloride 98, Carbon Dioxide 37.0 H, Anion Gap 4 L, BUN 25 H, Creatinine 0.58, Estim Creat Clear Calc 45.16, Est GFR (MDRD) Af Amer 133, Est GFR (MDRD) Non-Af 110, BUN/Creatinine Ratio 43.1 H, Glucose 96, Calcium 9.5, Total Bilirubin 0.20, AST 15, ALT 43, Alkaline Phosphatase 117, Total Protein 7.5, Albumin 2.8 L, Globulin 4.7 H, Al bumin/Globulin Ratio 0.6 L Micro: Microbiology 07/20/22 05:29 Sputum, Induced/Lukens Gram Stain - Final 07/20/22 05:29 Sputum, Induced/Lukens Respiratory Culture - Preliminary Staphylococcus aureus 07/03/22 03:10 Sputum, Induced/Lukens Gram Stain - Final 07/03/22 03:10 Sputum, Induced/Lukens Respiratory Culture - Final Culture exhibits no growth. 06/29/22 23:15 Blood Culture (Wb) - Anticubital Right Blood Culture - Final No growth in 5 days. 06/29/22 22:48 Blood Culture (Wb) - Anticubital Right Blood Culture - Final No growth in 5 days. 06/30/22 02:25 Sputum, Tracheal Aspirate Gram Stain - Final 06/30/22 02:25 Sputum, Tracheal Aspirate Respiratory Culture - Final 06/29/22 23:25 Urine Catheter - Fortune Urine Culture - Final Escherichia coli 06/30/22 02:35 Mucosa - Nasopharyngeal Respiratory Panel (PCR) - Final 06/29/22 23:30 Nasal Secretion SARS-CoV-2 & FLU Antigen (Rapid) - Final Physical Exam Narrative Physical exam: General: Alert, Oriented x3, Cooperative, appears frail HEENT: Status post tracheostomy, trach collar, 9L Oral: Moist Mucosa Neck: Supple Lungs: Diminished to auscultation Cardiovascular: HS I+II, regular, no murmurs Abdomen: PEG tube in situ, bowel Sounds Present, Soft, Non Tender Extremities: No edema Skin: No rashes, No breakdown Neurological: Grossly intact Psych/Mental Status: Appropriate Assessment & Plan Assessment/Plan (1) Acute and chronic respiratory failure with hypercapnia: PLAN: Plan 1.?Acute metabolic encephalopathy, POA, appears resolved (present on admission) Etiology 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 Acute on chronic hypoxic respiratory failure, status post tracheostomy (07/10/22) Continue on breathing treatment 3. Dysphagia, severe oropharyngeal phase status post PEG tube, continue PEG tube (07/09/22) Speech therapy following, last modified barium eval was 07/17/22 4. Suspected seizure disorder, continue Keppra 5. Severe protein calorie malnutrition, status post tube feeds, policy writer typist following 6. Acute E. coli UTI, completed antibiotic 7. Acute on chronic systolic heart failure with history of Takotsubo cardiom yopathy Continue Lasix 8. History of hemorrhagic CVA MRI on admission showed right subdural fluid collection and bilateral posterior cerebral encephalomalacia 9. Anemia, microcytic microchromic, hemoglobin remains at 9.8, will check iron stores 10.? DVT prophylaxis -Lovenox subcu Charges/Coding Visit Charges Inpatient E&M: 08119 Subs Hosp L2
--- NOTE | 2022-07-21 15:00 | CASEMGMT ---
FINESSE LALA received call from Rachel at [facility] stating that Ltach precert was denied. Per Rachel, insurance states patient meets lower level of care. [place] states Peer to Peer can be completed by noon 07/22/22 at [phone] ref#[id number]. [place] states an appeal can also be filed. FINESSE LALA updated hospitalist and requested to schedule peer to peer. FINESSE LALA updated SW as well. FINESSE LALA called to schedule peer to peer and left message for call back. CM will continue to follow this patient and plan for a safe discharge.
[2022-07-21 15:19] LABS: Ferritin 193 ng/mL (8-252); Iron 52 ug/dL (50-170); Iron Binding Capacity,Total 231 ug/dL (250-450); PERCENT IRON SATURATION 22.5 % (15.0-55.0)
--- NOTE | 2022-07-21 15:51 | CASEMGMT ---
Patient's insurance denied LTACH. IBETH called patient's daughter Ameena and let her know insurance denied LTACH. SW explained to her insurance feels patient can get the care she needs in a group home. Ameena was upset and said they don't care for trachs. IBETH told Ameena some facilities due take trach and peg tubes. IBETH reviewed some facilities and found at least 4 that their website said they take trachs and pegs and/or have respiratory staff on board. IBETH told Ameena SW will leave the list of facilities in patient's room. Before IBETH could finish Ameena told IBETH to start sending out referrals to those places. IBETH told her the four facilities SW was referring to were: [facility], [facility], [facility], and [facility] in [place]. Ameena was in agreement with all of those as long as they can care for trachs and peg tubes. IBETH then sent referrals to those 4 facilities. Await responses. Plan: d/c to SNF as insurance denied LTACH. Awaiting accepting facility and then insurance approval. Farzaneh Macdonald SOFTWARE DEVELOPMENT MANAGER [place]
[2022-07-22] VITALS (14 sets, daily range): BP systolic 101–120; BP diastolic 38–65; PULSE 93–113; RESP 14–30; TEMP 36.6–37.3; O2SAT 35–100
[2022-07-22] MEDS: 0.9% Saline Lock 10 ML Syringe IV (06:01)
[2022-07-22] MEDS: Ondansetron 4 MG/2 ML Vial IV (06:01)
[2022-07-22] MEDS: Phenytoin Na 100 MG/4 ML UDC GT ×3 (06:04→22:21)
[2022-07-22] MEDS: Ipratropium/Albuterol Sulfate 3 ML AMPUL.NEB INHALATION ×2 (07:05→19:09)
[2022-07-22] MEDS: busPIRone 5 MG Tablet 10 MG GT ×2 (09:50→22:21)
[2022-07-22] MEDS: Potassium Chloride Oral Soln 20 MEQ/15 ML UDC 40 MEQ GT ×2 (09:50→22:21)
[2022-07-22] MEDS: Enoxaparin 40 MG/0.4 ML Syringe SC (09:51)
[2022-07-22] MEDS: Furosemide 10 MG/ML Liquid 20 MG GT ×2 (09:51→17:14)
[2022-07-22] MEDS: QUEtiapine 100 MG Tablet 150 MG GT ×2 (09:51→22:21)
[2022-07-22] MEDS: Famotidine 20 MG Tablet GT ×2 (09:51→22:21)
[2022-07-22] MEDS: levETIRAcetam Oral Solution 500 MG/5 ML GT ×2 (09:51→22:21)
--- NOTE | 2022-07-22 10:00 | CASEMGMT ---
FINESSE LALA NOTE: No return call from [facility] to schedule P2P. FINESSE LALA placed call back to [employer] @ and spoke w/Bárbara. P2P scheduled for today b/w 11:30 and 11:45 w/Dr Bruce. They were proviced w/Dr Bruce's direct # and will contact her b/w those times. Dr Bruce made aware. Korin HILLN FINESSE CM
[2022-07-22] MEDS: Jevity 1.5 1,000 ML 80 ML GT (10:14)
--- NOTE | 2022-07-22 11:08 | PCM.PN.HOSP ---
Subjective Subjective Follow-up on acute on chronic respiratory failure/metabolic encephalopathy/dysphagia: Patient was seen and examined.?No acute events. Awaiting on discharge to detention facility. Objective Data Objective Data Vital Signs: Vital Signs Temp Pulse Resp BP Pulse Ox O2 Del Method O2 Flow Rate 98.1 F 108 H 28 H 120/65 95 Trach Collar 8 07/22/22 08:18 07/22/22 10:00 07/22/22 10:00 07/22/22 10:00 07/22/22 08:18 07/22/22 10:00 07/22/22 07:06 FiO2 35 07/22/22 10:00 Oxygen Flow Rate (L/min) 8 Oxygen Delivery Method Trach Collar Weight: 56 kg Body Mass Index (BMI) 22.9 Intake & Output: Intake and Output for Last 24 Hours 07/20/22 07/21/22 07/22/22 23:59 23:59 23:59 Intake Total 1227.75 / 1227.75 1875.00 / 1875.00 276.33 / 276.33 Output Total 0 / 300 300 / 300 Balance 1227.75 / 1227.75 1875.00 / 1575.00 -23.67 / -23.67 Medical Nutrition Assessment Dietitian: Malnutrition Criteria Met Start: 06/30/22 10:32 Freq: Status: Active Protocol: Document 07/20/22 13:52 RMA (Rec: 07/20/22 13:52 RMA [id number]) Nutrition Malnutrition Evidence of Malnutrition Exists Yes Malnutrition (severe): Chronic Evidenced By Weight Loss (Severe),Physical Changes (Moderate) Clinical Problem Chronic Disease or Condition Related Malnutrition Etiology severe, chronic malnutrition related to predicted inadequate oral intake Signs/Symptoms as evidenced by 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 2.) Suggest start with Jevity 1.5 kelvin at 40 ml/hr and increase as tolerated by 10 ml /hr Q 4-6 hours to goal rate 80 ml/hr. TF at goal rate with flushes will provide 1440 kcal, 61 gm pro and 1450 ml free water per day. 3.) Pt is to remain NPO so, TF will meet~100% estimated nutrition needs. Lab / Micro Data Result Diagrams: 07/21/22 05:40 07/21/22 05:40 Labs: Laboratory Results - last 24 hr 07/21/22 05:40: Iron 52, TIBC 231 L, Iron Saturation 22.5, Ferritin 193 Micro: Microbiology 07/20/22 05:29 Sputum, Induced/Lukens Gram Stain - Final 07/20/22 05:29 Sputum, Induced/Lukens Respiratory Culture - Preliminary Staphylococcus aureus 07/03/22 03:10 Sputum, Induced/Lukens Gram Stain - Final 07/03/22 03:10 Sputum, Induced/Lukens Respiratory Culture - Final Culture exhibits no growth. 06/29/22 23:15 Blood Culture (Wb) - Anticubital Right Blood Culture - Final No growth in 5 days. 06/29/22 22:48 Blood Culture (Wb) - Anticubital Right Blood Culture - Final No growth in 5 days. 06/30/22 02:25 Sputum, Tracheal Aspirate Gram Stain - Final 06/30/22 02:25 Sputum, Tracheal Aspirate Respiratory Culture - Final 06/29/22 23:25 Urine Catheter - Fortune Urine Culture - Final Escherichia coli 06/30/22 02:35 Mucosa - Nasopharyngeal Respiratory Panel (PCR) - Final 06/29/22 23:30 Nasal Secretion SARS-CoV-2 & FLU Antigen (Rapid) - Final Physical Exam Narrative Physical exam: General: Alert, Oriented x3, Cooperative, appears frail HEENT: Status post tracheostomy, trach collar, FiO2 40% Oral: Moist Mucosa Neck: Supple Lungs: Diminished to auscultation Cardiovascular: HS I+II, regular, no murmurs Abdomen: PEG tube in situ, bowel Sounds Present, Soft, Non Tender Extremities: No edema Skin: No rashes, No breakdown Neurological: Grossly intact Psych/Mental Status: Appropriate Assessment & Plan Assessment/Plan (1) Acute and chronic respiratory failure with hypercapnia: PLAN: Plan 1.?Acute metabolic encephalopathy, POA, appears resolved (present on admission) Etiology 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 Acute on chronic hypoxic respiratory failure, status post tracheostomy (07/10/22) Continue on breathing treatment 3. Dysphagia, severe oropharyngeal phase status post PEG tube, continue PEG tube (07/09/22) Speech therapy following, last modified barium eval was 07/17/22 4. Suspected seizure disorder, continue Keppra 5. Severe protein calorie malnutrition, status post tube feeds, radio interference expert following 6. Acute E. coli UTI, completed antibiotics 7. Acute on chronic systolic heart failure with history of Takotsubo cardiomyopathy Continue Lasix 8. History of hemorrhagic CVA MRI on admission showed right subdural fluid collection and bilateral posterior cerebral encephalomalacia 9. Anemia, microcytic microchromic, iron studies shows anemia of chronic disease, Hemoglobin is stable at 9.4 10.? DVT prophylaxis -Lovenox subcu Charges/Coding Visit Charges Inpatient E&M: 94555 Subs Hosp L1
--- NOTE | 2022-07-22 11:27 | CASEMGMT ---
IBETH called patient's daughter Ameena. IBETH let Ameena know that several of the facilities have said they cannot take patient. IBETH explained to Ameena that [employer] will pay for days 1-20 and then after that there will be a daily co-pay of around $188 per day. Ameena said patient cannot afford that. IBETH asked Ameena if she could complete a Medicaid application with patient and this would help pay that co-pay. Ameena said she will be in around 4p. IBETH told her SW will leave the application in the room if SW is not still here. Ameena said she will get it done today and leave it for SW. Ameena also asked about [facility] in [place]. IBETH let Ameena know SW can check. IBETH sent referrals to [facility] [facility], [facility], [facility], and [facility]. So far all of them have said no except [facility] was the facility asking if patient will qualify for Medicaid. IBETH notified [facility] know patient will be completing a Medicaid application today. Await response. IBETH did look at patient's SNF list and [facility] is not listed as taking her insurance. IBETH can ask [facility]. Farzaneh Macdonald INSTRUMENTATION CHEMIST [place]
--- NOTE | 2022-07-22 11:36 | CASEMGMT ---
Dr Bruce notified IBETH that insurance is still denying LTACH after peer to peer. IBETH will continue to work on skilled nursing placement. Farzaneh Macdonald BOWLING ALLEY MANAGER SCOUT SNIPER
--- NOTE | 2022-07-22 14:34 | CASEMGMT ---
[facility] accepted patient. SW asked that they start pre-cert. SW will send therapy notes from today once in the computer as patient refused therapy the last 2 days. Plan: [facility] pending insurance approval. Farzaneh MALHOTRA
--- NOTE | 2022-07-22 15:04 | CASEMGMT ---
Addendum entered by Farzaneh Macdonald 07/22/22 15:36: Pre-cert was started. Farzaneh MALHOTRA Original Note: IBETH sent PT/OT/ST notes from today to [facility] via [facility]. Plan: [facility] pending insurance approval. Farzaneh MALHOTRA
[2022-07-22] MEDS: Jevity 1.5. 1,000 ML Bottle 240 ML GT ×2 (17:05→20:37)
[2022-07-23] VITALS (15 sets, daily range): BP systolic 117–128; BP diastolic 49–76; PULSE 91–114; RESP 14–27; TEMP 36.6–37.2; O2SAT 95–100
[2022-07-23 04:44] LABS: Absolute Lymphocyte Count 1.75 X10^3/uL (0.83-4.51); Absolute Neutrophil Count 4.8 X10^3/uL (2.0-7.7); Basophil# 0.03 X10^3/uL; Basophil% 0.4 % (0-1); Eosinophil# 0.21 X10^3/uL; Eosinophils% 2.7 % (0-5); Hematocrit 30.4 % (37-47); Hemoglobin 9.2 g/dL (12.0-15.0); Lymphocyte # 1.75 X10^3/ul (0.83-4.51); Lymphocyte % 22.7 % (19-41); Mean Corp Hgb Conc 30.3 g/dL (32-36); Mean Corpuscular Hgb 29.3 pg (27.0-32.0); Mean Corpuscular Volume 96.8 fL (81-99); Mean Platelet Vol. 9.8 fl (6.2-12.0); Monocyte# 0.82 X10^3/uL; Monocyte% 10.6 % (0-10); NRBC Flagged by Analyzer 0 % (0-5); Neutrophil # 4.79 X10^3/uL (2.7-7.7); Platelet Count 307 K/mm3 (150-450); RBC Distribution Width CV 15.8 % (11.6-14.6); RBC Distribution Width SD 56.1 fl (35.1-43.9); Red Blood Count 3.14 M/mm3 (4.2-5.4); White Blood Count 7.7 K/mm3 (4.4-11.0)
[2022-07-23 05:13] LABS: ALB/GLOB Ratio 0.6 RATIO (0.9-2.4); AST(SGOT) 17 U/L (15-37); Alanine Aminotransfer ALT/SGPT 39 U/L (13-56); Albumin, Serum 2.7 g/dL (3.2-5.0); Alkaline Phosphatase 111 U/L (45-117); Anion Gap 4 (5-15); BUN 22 mg/dL (7-18); BUN/Creat Ratio 49.3 RATIO (10-20); Calcium,Total 9.5 mg/dL (8.5-10.1); Chloride 98 mmol/L (98-107); Creatinine, Serum 0.45 mg/dL (0.55-1.02); EST Glomerular Filtration Rate 149 mL/min (>60); Est Glom Filt Rate - Afr Amer 180 mL/min (>60); Estimated Creatinine Clearance 45.16 ml/min; Globulin 4.4 g/dL (2.2-4.2); Glucose 106 mg/dL (74-106); Potassium 4.3 mmol/L (3.5-5.1); Protein, Total 7.1 g/dL (6.4-8.2); Sodium Level 141 mmol/L (136-145)
[2022-07-23] MEDS: Phenytoin Na 100 MG/4 ML UDC GT ×3 (05:30→22:12)
[2022-07-23] MEDS: Ipratropium/Albuterol Sulfate 3 ML AMPUL.NEB INHALATION ×3 (06:52→20:02)
[2022-07-23] MEDS: busPIRone 5 MG Tablet 10 MG GT ×2 (09:05→22:12)
[2022-07-23] MEDS: Jevity 1.5. 1,000 ML Bottle 240 ML GT ×4 (09:05→19:04)
[2022-07-23] MEDS: Potassium Chloride Oral Soln 20 MEQ/15 ML UDC 40 MEQ GT ×2 (09:06→22:12)
[2022-07-23] MEDS: levETIRAcetam Oral Solution 500 MG/5 ML GT ×2 (09:06→22:12)
[2022-07-23] MEDS: Furosemide 10 MG/ML Liquid 20 MG GT ×2 (09:06→17:04)
[2022-07-23] MEDS: Enoxaparin 40 MG/0.4 ML Syringe SC (09:07)
[2022-07-23] MEDS: Famotidine 20 MG Tablet GT ×2 (09:07→22:12)
[2022-07-23] MEDS: QUEtiapine 100 MG Tablet 150 MG GT ×2 (09:07→22:13)
--- NOTE | 2022-07-23 09:14 | CASEMGMT ---
IBETH received the Medicaid application that patient and her daughter Ameena completed. IBETH faxed this to [facility] since patient's goal is to return to [facility] after rehab. IBETH notified [facility] that application was completed and sent to [facility]. Plan: [facility] pending pre-cert. Farzaneh Macdonald MSW [place]
--- NOTE | 2022-07-23 09:19 | CASEMGMT ---
Bipap and trach collar settings were sent to [facility] via [facility]. Farzaneh MALHOTRA
--- NOTE | 2022-07-23 09:46 | CASEMGMT ---
SW sent Radiation Oncology Therapist's note with recommended tube feeds to [facility] via [facility]. Farzaneh Macdonald DEVELOPMENT DISABILITY SPECIALIST [place]
--- NOTE | 2022-07-23 11:35 | TREXTCAR_ITS ---
Diet Diet Order/Speech Therapy: 06/30/22 01:18 Diet: Nothing Per Oral Diet Comments: Strict NPO Routine Orders/Code Status Suppository Type: Dulcolax 10mg Suppository Frequency: Daily PRN O2 Frequency: Continuous Keep PO Greater than or Equal to (%): 94 Routine Lab Work: CBC (within 3 days) and - (CMP within ) Code Status: Full Code Wound(s) left upper arm: Wound Type: infiltration left hand: Wound Type: infiltration left forearm: Wound Type: BLISTERS Therapies Weight Bearing: Weight bearing as tolerated Physical Therapy: Eval and Treat Occupational Therapy: Eval and Treat Speech Therapy: Eval and Treat Problem/Diagnosis (1) Acute and chronic respiratory failure with hypercapnia: Status: Chronic Code(s): J96.22 - Acute and chronic respiratory failure with hypercapnia Plan 1.?Acute metabolic encephalopathy 2. Acute on chronic hypoxic respiratory failure, status post tracheostomy (07/10/22) 3. Dysphagia, severe oropharyngeal phase, status post PEG tube(07/09/22) 4. Suspected seizure disorder 5. Severe protein calorie malnutrition 6. Acute E. coli UTI 7. Acute on chronic systolic heart failure with history of Takotsubo cardiomyopathy 8. History of hemorrhagic CVA 9. Anemia, microcytic microchromic Allergies/Procedures Done in Hospital Allergies tetanus and diphtheria toxoids [tetanus & diphtheria toxoids] Allergy (Verified 06/29/22 22:19) Hives Procedures: Peg tube placement (07/09/22) and - (s/p tracheostomy 07/10/22 by ENT) Type of Care/Length of Stay Estimated LOS: Convalescent Care Less Than 30 days Type of Care Needed: Skilled Rehab Potential: Good Prognosis: Good Additional Orders/Day of Discharge Day of Discharge: 07/25/22 Dietary and Speech Recommendations Dietitian Recommendations/Changes: Will adjust tube feeds to 240mL bolus of Jevity 1.5 4x/day w/ 90mL H2O flush before and after to provide 1440 calories, 61 g protein, and 1450mL fluid/day. Will schedule enteral nutrition for 0900, 1200, 1600, and 1900 around dilantin administration. Discharge Plan Admission Admit Date/Time: 06/30/22 00:59 Primary Reason for Your Visit: Altered mental status/seizure Attending Provider: Daniela Bruce Primary Care Provider: Maryam Pineda Consulting Providers: Anurag Flannery ; Yazmin Buitrago ; Yash Mancilla ; César Cagle ; Nelson Kelsey ; Guero Tuttle Discharge Orders/Prescriptions Prescriptions: New acetaminophen 650 mg/20.3 mL Solution 650 mg G-tube Q4H PRN PRN (Reason: Pain 1-10 Or Fever) Qty: 0 0RF buspirone 5 mg Tablet 10 mg G-tube BID Qty: 0 0RF ipratropium-albuterol 0.5 mg-3 mg(2.5 mg base)/3 mL Solution For Nebulization 3 ml inhalation Q6HWA.RT Qty: 0 0RF albuterol sulfate 2.5 mg /3 mL (0.083 %) Solution For Nebulization 2.5 mg inhalation Q2H PRN PRN (Reason: Dyspnea, wheezing) Qty: 0 0RF furosemide 10 mg/mL Solution 20 mg G-tube BIDLX Qty: 0 0RF sennosides-docusate sodium [Stool Softener-Stimulant Laxat] 8.6-50 mg Tablet 2 tab G-tube BID Qty: 0 0RF quetiapine 100 mg Tablet 150 mg G-tube BID Qty: 0 0RF potassium chloride 20 mEq/15 mL Liquid 40 meq G-tube BID Qty: 0 0RF famotidine 20 mg Tablet 20 mg G-tube BID Qty: 0 0RF oxycodone 5 mg Tablet 5 mg G-tube Q6H PRN PRN (Reason: Pain Score 6-10) 3 Days Qty: 0 0RF levetiracetam 100 mg/mL Solution 500 mg G-tube BID Qty: 0 0RF phenytoin 100 mg/4 mL Suspension 100 mg G-tube Q8 30 Days Qty: 0 0RF Jevity 1.5 Kelvin 0.06 gram-1.5 kcal/mL Liquid 240 ml G-tube 0900,1200,1600,1900 Qty: 0 0RF zolpidem [Ambien] 5 mg tablet 5 mg PO QHS PRN (Reason: insomnia) 30 Days Qty: 30 0RF Continued albuterol sulfate [Ventolin HFA] 90 mcg/actuation HFA aerosol inhaler 2 puff inhalation Q4H PRN (Reason: shortness of breath or wheezing) Qty: 18 6RF mecobalamin (vitamin B12) 5,000 mcg tablet,disintegrating 5,000 mcg PO DAILY pantoprazole [Protonix] 40 mg Tablet,Delayed Release (Dr/Ec) 40 mg PO DAILY folic acid 1 mg Tablet 1 mg PO DAILY aspirin 81 mg Tablet 81 mg PO DAILY cholecalciferol (vitamin D3) [Vitamin D3] 25 mcg (1,000 unit) Tablet 25 mcg PO DAILY albuterol sulfate 1.25 mg/3 mL Solution For Nebulization 1.25 mg INHALATION Q4H PRN (Reason: Shortness Of Breath Or Wheezing) phjlqkpleaz-stjkykfjv-bicqpxpk 100-62.5-25 mcg blister with device 1 inh inhalation DAILY Qty: 60 3RF Discontinued escitalopram oxalate [Lexapro] 10 mg tablet 10 mg PO DAILY zolpidem 10 mg tablet 10 mg PO QHS PRN (Reason: Sleep) losartan 25 mg tablet 25 mg PO DAILY spironolactone 25 mg Tablet 12.5 mg PO DAILY Hold Instructions: symptoms of low blood pressure 12/02/21 Label Comments: on hold until instructed to resume ropinirole 0.5 mg Tablet 0.5 mg PO QHS duloxetine 60 mg Capsule,Delayed Release(Dr/Ec) 60 mg PO DAILY potassium chloride 20 mEq Tablet Extended Release 20 meq PO DAILY hydroxyzine pamoate [Vistaril] 25 mg capsule 25 mg PO BID PRN (Reason: itching) Qty: 20 0RF prednisone 20 mg tablet 60 mg PO DAILY Qty: 15 0RF hydrocodone-acetaminophen [hydrocodone-acetaminophen] 5-325 mg tablet 1 tab PO Q4H PRN PRN (Reason: Pain) 2 Days Qty: 10 0RF cephalexin [cephalexin] 500 mg capsule 500 mg PO Q8H Qty: 30 0RF Referrals / Follow Up: Maryam Pineda MD [Primary Care Provider] - Disposition Disposition (needs filled in before D/C Order can be placed): Shelter Facility
--- NOTE | 2022-07-23 14:18 | NURSING ---
pt transferred from chair to bed. spo2 dropped to 70's. pt suctioned twice for clear drainage down trach with closed system. states she is sob. rr 32. respiratory therapist called. pt suctioned 1 more time. sp02 in 80's. pt placed on bipap. rr 22. spo2 98-100%. pt states she is feeling much better. family at bedside.
--- NOTE | 2022-07-23 14:27 | CPS ---
Rt called to [facility] due to sob, desaturation. nursing informed rt that patient was moved from bed to chair when desaturation noted. Rt suctioned patient via inline with small amount of clear secretions removed. no adverse reaction noted. post suctioning patients sp02 remained at 71% with increased breathing. patient placed back on avaps and cuff inflated.
--- NOTE | 2022-07-23 15:28 | PCM.PN.HOSP ---
Subjective Subjective Follow-up on acute on chronic respiratory failure/metabolic encephalopathy/dysphagia: Patient was seen and examined.?No acute events. Awaiting on discharge to detention facility. Objective Data Objective Data Vital Signs: Vital Signs Temp Pulse Resp BP Pulse Ox O2 Del Method O2 Flow Rate 98.1 F 96 22 H 128/56 H 97 Bi-pap 8 07/23/22 14:00 07/23/22 14:27 07/23/22 14:27 07/23/22 14:00 07/23/22 14:27 07/23/22 10:00 07/23/22 07:15 FiO2 35 07/23/22 14:27 Oxygen Flow Rate (L/min) 8 Oxygen Delivery Method Bi-pap Weight: 55.5 kg Body Mass Index (BMI) 22.9 Intake & Output: Intake and Output for Last 24 Hours 07/21/22 07/22/22 07/23/22 23:59 23:59 23:59 Intake Total 1875.00 / 1875.00 1037.66 / 1037.66 Output Total 0 / 300 700 / 1600 900 / 900 Balance 1875.00 / 1575.00 337.66 / -562.34 -900 / -900 Medical Nutrition Assessment Dietitian: Malnutrition Criteria Met Start: 06/30/22 10:32 Freq: Status: Active Protocol: Document 07/22/22 14:31 (Rec: 07/22/22 14:31 [id number]) Nutrition Malnutrition Evidence of Malnutrition Exists Yes Malnutrition (severe): Chronic Evidenced By Weight Loss (Severe),Physical Changes (Moderate) Clinical Problem Chronic Disease or Condition Related Malnutrition Etiology severe, chronic malnutrition related to predicted inadequate oral intake Signs/Symptoms as evidenced by wt loss of 23. 6#/14% x 9 months travel pta, moderate muscle wasting/fat loss in orbital, temporal, clavicle, and acromion areas per physical exam Status Active Problem Recommendation Dietitian Recommendations/Changes Will adjust tube feeds to 240mL bolus of Jevity 1.5 4x/ day w/ 90mL H2O flush before and after to provide 1440 calories, 61 g protein, and 1450mL fluid/day. Will schedule enteral nutrition for 0900, 1200, 1600, and 1900 around dilantin administration . Lab / Micro Data Result Diagrams: 07/23/22 04:19 07/23/22 04:19 Labs: Laboratory Results - last 24 hr 07/23/22 04:19: WBC 7.7, RBC 3.14 L, Hgb 9.2 L, Hct 30.4 L, MCV 96.8, MCH 29.3, MCHC 30.3 L, RDW Std Deviation 56.1 H, RDW Coeff of Deonte 15.8 H, Plt Count 307, MPV 9.8, Immature Gran % (Auto) 1.600 H, Neut % (Auto) 62.0, Lymph % (Auto) 22.7, [place] % (Auto) 10.6 H, Eos % (Auto) 2.7, Baso % (Auto) 0.4, Absolute Neuts (auto) 4.8, Absolute Lymphs (auto) 1.75, Nucleated RBC % 0 07/23/22 04:19: Sodium 141, Potassium 4.3, Chloride 98, Carbon Dioxide 39.0 H, Anion Gap 4 L, BUN 22 H, Creatinine 0.45 L, Estim Creat Clear Calc 45.16, Est GFR (MDRD) Af Amer 180, Est GFR (MDRD) Non-Af 149, BUN/Creatinine Ratio 49.3 H, Glucose 106, Calcium 9.5, Total Bilirubin 0.10 L, AST 17, ALT 39, Alkaline Phosphatase 111, Total Protein 7.1, Albumin 2.7 L, Globulin 4.4 H, Albumin/Globulin Ratio 0.6 L Micro: Microbiology 07/20/22 05:29 Sputum, Induced/Lukens Gram Stain - Final 07/20/22 05:29 Sputum, Induced/Lukens Respiratory Culture - Final Staphylococcus aureus 07/03/22 03:10 Sputum, Induced/Lukens Gram Stain - Final 07/03/22 03:10 Sputum, Induced/Lukens Respiratory Culture - Final Culture exhibits no growth. 06/29/22 23:15 Blood Culture (Wb) - Anticubital Right Blood Culture - Final No growth in 5 days. 06/29/22 22:48 Blood Culture (Wb) - Anticubital Right Blood Culture - Final No growth in 5 days. 06/30/22 02:25 Sputum, Tracheal Aspirate Gram Stain - Final 06/30/22 02:25 Sputum, Tracheal Aspirate Respiratory Culture - Final 06/29/22 23:25 Urine Catheter - Fortune Urine Culture - Final Escherichia coli 06/30/22 02:35 Mucosa - Nasopharyngeal Respiratory Panel (PCR) - Final 06/29/22 23:30 Nasal Secretion SARS-CoV-2 & FLU Antigen (Rapid) - Final Physical Exam Narrative Physical exam: General: Alert, Oriented x3, Cooperative, appears frail HEENT: Status post tracheostomy, trach collar, FiO2 40% Oral: Moist Mucosa Neck: Supple Lungs: Diminished to auscultation Cardiovascular: HS I+II, regular, no murmurs Abdomen: PEG tube in situ, bowel Sounds Present, Soft, Non Tender Extremities: No edema Skin: No rashes, No breakdown Neurological: Grossly intact Psych/Mental Status: Appropriate Assessment & Plan Assessment/Plan (1) Acute and chronic respiratory failure with hypercapnia: PLAN: Plan 1.?Acute metabolic encephalopathy, POA, appears resolved (present on admission) Etiology 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 Acute on chronic hypoxic respiratory failure, status post tracheostomy (07/10/22) Patient alternating between BiPAP and AVAPS Continue on breathing treatment 3. Dysphagia, severe oropharyngeal phase status post PEG tube, continue PEG tube (07/09/22) Speech therapy following, last modified barium eval was 07/17/22 4. Suspected seizure disorder, continue Keppra 5. Severe protein calorie malnutrition, status post tube feeds, manager corporate responsibility following 6. Acute E. coli UTI, completed antibiotics 7. Acute on chronic systolic heart failure with history of Takotsubo cardiomyopathy Continue Lasix 8. History of hemorrhagic CVA MRI on admission showed right subdural fluid collection and bilateral posterior cerebral encephalomalacia 9. Anemia, microcytic microchromic, iron studies shows anemia of chronic disease, Hemoglobin is stable at 9.4 10.? DVT prophylaxis -Lovenox subcu Charges/Coding Visit Charges Inpatient E&M: 83183 Subs Hosp L2
[2022-07-23] MEDS: Acetaminophen 650 MG/20 ML UDC GT (22:11)
[2022-07-23] MEDS: Senna/Docusate Sodium 1 Tablet 2 TABLET GT (22:12)
[2022-07-23] MEDS: 0.9% Saline Lock 10 ML Syringe IV (22:13)
[2022-07-24] VITALS (11 sets, daily range): BP systolic 109–132; BP diastolic 58–65; PULSE 93–116; RESP 14–26; TEMP 36.6–37.2; O2SAT 89–100
[2022-07-24 04:38] LABS: Absolute Lymphocyte Count 1.74 X10^3/uL (0.83-4.51); Absolute Neutrophil Count 4.9 X10^3/uL (2.0-7.7); Basophil# 0.07 X10^3/uL; Basophil% 0.9 % (0-1); Eosinophil# 0.19 X10^3/uL; Eosinophils% 2.5 % (0-5); Hemoglobin 8.8 g/dL (12.0-15.0); Lymphocyte # 1.74 X10^3/ul (0.83-4.51); Lymphocyte % 22.5 % (19-41); Mean Corp Hgb Conc 28.4 g/dL (32-36); Mean Corpuscular Hgb 27.8 pg (27.0-32.0); Mean Corpuscular Volume 98.1 fL (81-99); NRBC Flagged by Analyzer 0 % (0-5); Neutrophil % 63.3 % (47-70); Platelet Count 284 K/mm3 (150-450); RBC Distribution Width CV 15.8 % (11.6-14.6); RBC Distribution Width SD 56.4 fl (35.1-43.9); Red Blood Count 3.16 M/mm3 (4.2-5.4); White Blood Count 7.7 K/mm3 (4.4-11.0)
[2022-07-24 05:09] LABS: ALB/GLOB Ratio 0.7 RATIO (0.9-2.4); AST(SGOT) 16 U/L (15-37); Alanine Aminotransfer ALT/SGPT 39 U/L (13-56); Albumin, Serum 2.8 g/dL (3.2-5.0); Alkaline Phosphatase 113 U/L (45-117); Anion Gap 4 (5-15); BUN 19 mg/dL (7-18); BUN/Creat Ratio 38.9 RATIO (10-20); Calcium,Total 9.1 mg/dL (8.5-10.1); Chloride 101 mmol/L (98-107); Creatinine, Serum 0.49 mg/dL (0.55-1.02); EST Glomerular Filtration Rate 134 mL/min (>60); Est Glom Filt Rate - Afr Amer 162 mL/min (>60); Estimated Creatinine Clearance 45.16 ml/min; Glucose 99 mg/dL (74-106); Potassium 4.6 mmol/L (3.5-5.1); Protein, Total 6.8 g/dL (6.4-8.2); Sodium Level 142 mmol/L (136-145)
[2022-07-24] MEDS: 0.9% Saline Lock 10 ML Syringe IV ×2 (05:30→10:34)
[2022-07-24] MEDS: Phenytoin Na 100 MG/4 ML UDC GT ×3 (05:30→21:03)
[2022-07-24] MEDS: Ipratropium/Albuterol Sulfate 3 ML AMPUL.NEB INHALATION ×3 (07:10→19:23)
[2022-07-24] MEDS: Jevity 1.5. 1,000 ML Bottle 240 ML GT ×4 (10:00→20:08)
[2022-07-24] MEDS: busPIRone 5 MG Tablet 10 MG GT ×2 (10:34→21:03)
[2022-07-24] MEDS: Potassium Chloride Oral Soln 20 MEQ/15 ML UDC 40 MEQ GT ×2 (10:35→21:04)
[2022-07-24] MEDS: Famotidine 20 MG Tablet GT ×2 (10:36→21:04)
[2022-07-24] MEDS: Senna/Docusate Sodium 1 Tablet 2 TABLET GT ×2 (10:36→21:05)
[2022-07-24] MEDS: QUEtiapine 100 MG Tablet 150 MG GT ×2 (10:36→21:05)
[2022-07-24] MEDS: levETIRAcetam Oral Solution 500 MG/5 ML GT ×2 (10:36→21:04)
[2022-07-24] MEDS: Furosemide 10 MG/ML Liquid 20 MG GT ×2 (10:37→17:23)
[2022-07-24] MEDS: Enoxaparin 40 MG/0.4 ML Syringe SC (10:37)
--- NOTE | 2022-07-24 13:05 | CASEMGMT ---
Social Work As per CM assessment, daughter Ameena Zhang is pt's healthcare POA. Papers not on file, pt was asked to bring in papers as able. BURTON Elmore
--- NOTE | 2022-07-24 13:54 | PCM.PN.HOSP ---
Subjective Subjective Follow-up on acute on chronic respiratory failure/metabolic encephalopathy/dysphagia: Patient was seen and examined.?No acute events. Awaiting on discharge to [facility] facility. Objective Data Objective Data Vital Signs: Vital Signs Temp Pulse Resp BP Pulse Ox O2 Del Method O2 Flow Rate 98.0 F 105 H 17 117/62 89 Trach Collar 12 07/24/22 10:00 07/24/22 10:00 07/24/22 10:00 07/24/22 10:00 07/24/22 10:05 07/24/22 10:00 07/24/22 10:00 FiO2 40 07/24/22 07:10 Oxygen Flow Rate (L/min) 12 Oxygen Delivery Method Trach Collar Weight: 56.8 kg Body Mass Index (BMI) 22.9 Intake & Output: Intake and Output for Last 24 Hours 07/22/22 07/23/22 07/24/22 23:59 23:59 23:59 Intake Total 1037.66 / 1037.66 2000 / 2000 420 / 420 Output Total 700 / 1600 900 / 900 Balance 337.66 / -562.34 1100 / 1100 420 / 420 Medical Nutrition Assessment Dietitian: Malnutrition Criteria Met Start: 06/30/22 10:32 Freq: Status: Active Protocol: Document 07/22/22 14:31 AG (Rec: 07/22/22 14:31 AG [id number]) Nutrition Malnutrition Evidence of Malnutrition Exists Yes Malnutrition (severe): Chronic Evidenced By Weight Loss (Severe),Physical Changes (Moderate) Clinical Problem Chronic Disease or Condition Related Malnutrition Etiology severe, chronic malnutrition related to predicted inadequate oral intake Signs/Symptoms as evidenced by 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 Will schedule enteral nutrition for 0900, 1200, 1600, and 1900 around dilantin administration . Lab / Micro Data Result Diagrams: 07/24/22 04:14 07/24/22 04:14 Labs: Laboratory Results - last 24 hr 07/24/22 04:14: WBC 7.7, RBC 3.16 L, Hgb 8.8 L, Hct 31.0 L, MCV 98.1, MCH 27.8, MCHC 28.4 L D, RDW Std Deviation 56.4 H, RDW Coeff of Deonte 15.8 H, Plt Count 284, MPV 10.0, Immature Gran % (Auto) 1.800 H, Neut % (Auto) 63.3, Lymph % (Auto) 22.5, [place] % (Auto) 9.0, Eos % (Auto) 2.5, Baso % (Auto) 0.9, Absolute Neuts (auto) 4.9, Absolute Lymphs (auto) 1.74, Nucleated RBC % 0 07/24/22 04:14: Sodium 142, Potassium 4.6, Chloride 101, Carbon Dioxide 37.0 H, Anion Gap 4 L, BUN 19 H, Creatinine 0.49 L, Estim Creat Clear Calc 45.16, Est GFR (MDRD) Af Amer 162, Est GFR (MDRD) Non-Af 134, BUN/Creatinine Ratio 38.9 H, Glucose 99, Calcium 9.1, Total Bilirubin 0.10 L, AST 16, ALT 39, Alkaline Phosphatase 113, Total Protein 6.8, Albumin 2.8 L, Globulin 4.0, Albumin/Globulin Ratio 0.7 L Micro: Microbiology 07/20/22 05:29 Sputum, Induced/Lukens Gram Stain - Final 07/20/22 05:29 Sputum, Induced/Lukens Respiratory Culture - Final Staphylococcus aureus 07/03/22 03:10 Sputum, Induced/Lukens Gram Stain - Final 07/03/22 03:10 Sputum, Induced/Lukens Respiratory Culture - Final Culture exhibits no growth. 06/29/22 23:15 Blood Culture (Wb) - Anticubital Right Blood Culture - Final No growth in 5 days. 06/29/22 22:48 Blood Culture (Wb) - Anticubital Right Blood Culture - Final No growth in 5 days. 06/30/22 02:25 Sputum, Tracheal Aspirate Gram Stain - Final 06/30/22 02:25 Sputum, Tracheal Aspirate Respiratory Culture - Final 06/29/22 23:25 Urine Catheter - Fortune Urine Culture - Final Escherichia coli 06/30/22 02:35 Mucosa - Nasopharyngeal Respiratory Panel (PCR) - Final 06/29/22 23:30 Nasal Secretion SARS-CoV-2 & FLU Antigen (Rapid) - Final Physical Exam Narrative Physical exam: General: Alert, Oriented x3, Cooperative, appears frail HEENT: Status post tracheostomy, trach collar, FiO2 40% Oral: Moist Mucosa Neck: Supple Lungs: Diminished to auscultation Cardiovascular: HS I+II, regular, no murmurs Abdomen: PEG tube in situ, bowel Sounds Present, Soft, Non Tender Extremities: No edema Skin: No rashes, No breakdown Neurological: Grossly intact Psych/Mental Status: Appropriate Assessment & Plan Assessment/Plan (1) Acute and chronic respiratory failure with hypercapnia: PLAN: Plan 1.?Acute metabolic encephalopathy, POA, appears resolved (present on admission) Etiology 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 Acute on chronic hypoxic respiratory failure, status post tracheostomy (07/10/22) Patient alternating between BiPAP and AVAPS Continue on breathing treatment 3. Dysphagia, severe oropharyngeal phase status post PEG tube, continue PEG tube (07/09/22) Speech therapy following, last modified barium eval was 07/17/22 4. Suspected seizure disorder, continue Keppra 5. Severe protein calorie malnutrition, status post tube feeds, support teacher following 6. Acute E. coli UTI, completed antibiotics 7. Acute on chronic systolic heart failure with history of Takotsubo cardiomyopathy Continue Lasix 8. History of hemorrhagic CVA MRI on admission showed right subdural fluid collection and bilateral posterior cerebral encephalomalacia 9. Anemia, microcytic microchromic, iron studies shows anemia of chronic disease, Hemoglobin is stable at 8.8 10.? DVT prophylaxis -Lovenox subcu Charges/Coding Visit Charges Inpatient E&M: 53832 Subs Hosp L2
--- NOTE | 2022-07-24 16:11 | CASEMGMT ---
Social Work SW spoke w/[facility], they got precert. SW texted physician, plan will be to discharge pt tomorrow. SW completed PAS/RR, attained results, both sent to [facility] via [facility]. SW called daughter to let her know precert attained and pt will go tomorrow. SW also spoke w/pt in room, let her know precert is attained and she will go tomorrow. Green sheet placed on chart w/transport form and PAS/RR. Pt to go to [facility] tomorrow. BURTON Elmore
[2022-07-25 02:45] VITALS: PULSE 105; RESP 14; RESP 28; O2SAT 100
[2022-07-25 03:18] VITALS: BP 128/57; PULSE 106; RESP 27; TEMP 37.1; O2SAT 100
[2022-07-25 05:18] VITALS: BP 115/56; PULSE 100; RESP 19; TEMP 36.8; O2SAT 96
[2022-07-25] MEDS: Phenytoin Na 100 MG/4 ML UDC GT (05:40)
[2022-07-25 07:21] LABS: Absolute Lymphocyte Count 1.63 X10^3/uL (0.83-4.51); Absolute Neutrophil Count 4.9 X10^3/uL (2.0-7.7); Basophil# 0.05 X10^3/uL; Basophil% 0.7 % (0-1); Eosinophil# 0.26 X10^3/uL; Eosinophils% 3.4 % (0-5); Hematocrit 30.3 % (37-47); Lymphocyte # 1.63 X10^3/ul (0.83-4.51); Lymphocyte % 21.4 % (19-41); Mean Corp Hgb Conc 29.7 g/dL (32-36); Mean Corpuscular Hgb 28.7 pg (27.0-32.0); Mean Corpuscular Volume 96.5 fL (81-99); Mean Platelet Vol. 9.9 fl (6.2-12.0); Monocyte# 0.64 X10^3/uL; Monocyte% 8.4 % (0-10); NRBC Flagged by Analyzer 0 % (0-5); Neutrophil % 64.3 % (47-70); Platelet Count 265 K/mm3 (150-450); RBC Distribution Width CV 16.1 % (11.6-14.6); RBC Distribution Width SD 56.9 fl (35.1-43.9); Red Blood Count 3.14 M/mm3 (4.2-5.4); White Blood Count 7.6 K/mm3 (4.4-11.0)
[2022-07-25 07:29] VITALS: PULSE 101; RESP 20
[2022-07-25] MEDS: Ipratropium/Albuterol Sulfate 3 ML AMPUL.NEB INHALATION (07:29)
[2022-07-25 07:46] LABS: ALB/GLOB Ratio 0.7 RATIO (0.9-2.4); AST(SGOT) 14 U/L (15-37); Alanine Aminotransfer ALT/SGPT 31 U/L (13-56); Albumin, Serum 2.8 g/dL (3.2-5.0); Alkaline Phosphatase 109 U/L (45-117); Anion Gap 2 (5-15); BUN 17 mg/dL (7-18); BUN/Creat Ratio 33.3 RATIO (10-20); Calcium,Total 9.4 mg/dL (8.5-10.1); Chloride 99 mmol/L (98-107); Creatinine, Serum 0.51 mg/dL (0.55-1.02); EST Glomerular Filtration Rate 128 mL/min (>60); Est Glom Filt Rate - Afr Amer 154 mL/min (>60); Estimated Creatinine Clearance 45.16 ml/min; Globulin 4.3 g/dL (2.2-4.2); Glucose 108 mg/dL (74-106); Potassium 3.9 mmol/L (3.5-5.1); Protein, Total 7.1 g/dL (6.4-8.2); Sodium Level 140 mmol/L (136-145)
--- NOTE | 2022-07-25 09:42 | NURSING ---
I spoke with Ameena sanford's daughter informing her that pt is being d/c today.
--- NOTE | 2022-07-25 09:43 | NURSING ---
I spoke with Maria Isabel at [facility] to inform them of pt's d/c
--- NOTE | 2022-07-25 09:49 | EKG12_ITS ---
Test Reason : Blood Pressure : / mmHG Vent. Rate : 104 BPM Atrial Rate : 104 BPM P-R Int : 122 ms QRS Dur : 078 ms QT Int : 332 ms P-R-T Axes : 070 044 082 degrees QTc Int : 436 ms Sinus tachycardia Possible Lateral infarct , age undetermined Inferior infarct (cited on or before 29-JUN-2022) Abnormal ECG When compared with ECG of 29-JUN-2022 22:21, Nonspecific T wave abnormality now evident in Anterior leads Confirmed by MOISES MENDES, LINDSEY ([id number]), offline editor NICOLE ARANGO ([id number]) on 07/28/2022 11:32:47 AM Referred By: Confirmed By:LINDSEY DE LEON MD
[2022-07-25] MEDS: Jevity 1.5. 1,000 ML Bottle 240 ML GT (10:34)
[2022-07-25] MEDS: Potassium Chloride Oral Soln 20 MEQ/15 ML UDC 40 MEQ GT (10:37)
[2022-07-25] MEDS: QUEtiapine 100 MG Tablet 150 MG GT (10:37)
[2022-07-25] MEDS: Enoxaparin 40 MG/0.4 ML Syringe SC (10:37)
[2022-07-25] MEDS: Senna/Docusate Sodium 1 Tablet 2 TABLET GT (10:38)
[2022-07-25] MEDS: Famotidine 20 MG Tablet GT (10:38)
[2022-07-25] MEDS: levETIRAcetam Oral Solution 500 MG/5 ML GT (10:38)
[2022-07-25] MEDS: busPIRone 5 MG Tablet 10 MG GT (10:38)
[2022-07-25] MEDS: Furosemide 10 MG/ML Liquid 20 MG GT (10:39)
--- NOTE | 2022-07-25 10:42 | DS.PCM_ITS ---
Providers Date of Admission: 06/30/22 Date of Discharge: 07/25/22 Primary Care Physician: Dr. Maryam Pineda MD Consultations 06/30/22 01:17 Consult: Morning Show Producer / Pulmonary Medicine Routine Consulting Provider: Anurag Flannery Reason for Consult: Unresponsive, UTI, concern seizure activity EMERGENT Consult: No Notified: Yes Date Notified: 06/30/22 Time Notified: 01:02 Method of Notification: Text 07/08/22 17:03 Consult: ENT Routine Consulting Provider: Yash Mancilla Reason for Consult: trach, respiratory failure EMERGENT Consult: No Notified: Yes Date Notified: 07/08/22 Time Notified: 17:03 Method of Notification: Verbal Method of Consult:: In-Person Consult: Gastroenterology Routine Consulting Provider: [facility] Reason for Consult: peg placement EMERGENT Consult: No Notified: Yes Date Notified: 07/08/22 Time Notified: 17:03 Method of Notification: Verbal Reason For Visit: UNRESPONSIVE, UTI, SEIZURE Diagnosis Discharge Diagnosis (1) Acute and chronic respiratory failure with hypercapnia: Status: Chronic Code(s): J96.22 - Acute and chronic respiratory failure with hypercapnia Plan 1.?Acute metabolic encephalopathy 2. Acute on chronic hypoxic respiratory failure, status post tracheostomy (07/10/22) 3. Dysphagia, severe oropharyngeal phase, status post PEG tube(07/09/22) 4. Suspected seizure disorder 5. Severe protein calorie malnutrition 6. Acute E. coli UTI 7. Acute on chronic systolic heart failure with history of Takotsubo cardiomyopathy 8. History of hemorrhagic CVA 9. Anemia, microcytic microchromic Medications at Discharge Home Medications aspirin 81 mg tablet 81 mg PO DAILY [facility] 11/03/20 cholecalciferol (vitamin D3) 25 mcg (1,000 unit) tablet (Vitamin D3) 25 mcg PO DAILY supplement 11/03/20 folic acid 1 mg tablet 1 mg PO DAILY supplement 11/03/20 pantoprazole 40 mg tablet,delayed release (Protonix) 40 mg PO DAILY GERD 11/03/20 albuterol sulfate 90 mcg/actuation aerosol inhaler (Ventolin HFA) 2 puff inhalation Q4H PRN shortness of breath or wheezing #18 grams 12/23/20 albuterol sulfate 1.25 mg/3 mL solution for nebulization 1.25 mg inhalation Q4H PRN Shortness Of Breath Or Wheezing 06/15/21 mecobalamin (vitamin B12) 5,000 mcg disintegrating tablet 5,000 mcg PO DAILY 07/07/21 fluticasone fur. 100 mcg-umeclid 62.5 mcg-vilant 25 mcg inhalat.powder 1 inh inhalation DAILY COPD #60 ea 04/14/22 acetaminophen 650 mg/20.3 mL oral solution 650 mg (20.3 mL) G-tube Q4H PRN PRN Pain 1-10 Or Fever #0 mL 07/25/22 albuterol sulfate 2.5 mg/3 mL (0.083 %) solution for nebulization 2.5 mg (3 mL) inhalation Q2H PRN PRN Dyspnea, wheezing #0 mL 07/25/22 buspirone 5 mg tablet 10 mg G-tube BID #0 tabs 07/25/22 famotidine 20 mg tablet 20 mg G-tube BID #0 tabs 07/25/22 furosemide 10 mg/mL oral solution 20 mg (2 mL) G-tube BIDLX #0 mL 07/25/22 ipratropium 0.5 mg-albuterol 3 mg (2.5 mg base)/3 mL nebulization soln 3 ml inhalation Q6HWA.RT #0 mL 07/25/22 lactose-reduced food with fiber 0.06 gram-1.5 kcal/mL oral liquid (Jevity 1.5 Kelvin) 240 ml G-tube 0900,1200,1600,1900 #0 mL 07/25/22 levetiracetam 100 mg/mL oral solution 500 mg (5 mL) G-tube BID #0 mL 07/25/22 oxycodone 5 mg tablet 5 mg G-tube Q6H PRN PRN Pain Score 6-10 3 days #0 tabs 07/25/22 phenytoin 100 mg/4 mL oral suspension 100 mg (4 mL) G-tube Q8 30 days #0 mL 07/25/22 potassium chloride 20 mEq/15 mL oral liquid 40 meq (30 mL) G-tube BID #0 mL 07/25/22 quetiapine 100 mg tablet 150 mg G-tube BID #0 tabs 07/25/22 sennosides 8.6 mg-docusate sodium 50 mg tablet (Stool Softener-Stimulant Laxative) 2 tab G-tube BID #0 tabs 07/25/22 zolpidem 5 mg tablet (Ambien) 5 mg PO QHS PRN insomnia 30 days #30 tabs 07/25/22 Hospital Course Operations None Procedures EGD (07/09/22) and - (s/p tracheostomy 07/10/22) Summary of Care Provided Minutes Spent on Discharge: 35 Hospital Course: 66-year-old female with past medical history of chronic hypoxic respiratory failure on 2 L of oxygen, chronic systolic CHF, history of Takotsubo cardiomyopathy, who comes in on 06/30/2022 with unresponsiveness and seizure- like activity. Patient was said to be increasingly confused and was later on found to be less responsive and having difficulty maintaining her oxygenation. In the emergency room, patient was found to be encephalopathic. She did had episodes of stiffening that was suspected to be seizures. She had a long and protracted hospital stay. Her hospital management was as follows: 1.?Acute metabolic encephalopathy, POA, appears resolved (present on admission) Etiology likely from hypercapnia from end-stage COPD/postictal state Patient is alert oriented x3 at time of discharge 2. Acute on chronic hypoxic respiratory failure, status post tracheostomy (07/10/22) Patient was on the tracheostomy mask/BiPAP/AVAPS 3. Dysphagia, severe oropharyngeal phase status post PEG tube (07/09/22) by GI Speech therapy followed with this patient during his hospital stay 4. Suspected seizure disorder, on Keppra 5. Severe protein calorie malnutrition, status post tube feeds, media developer was consulted. 6. Acute E. coli UTI, completed antibiotics 7. Acute on chronic systolic heart failure with history of Takotsubo cardiomyopathy Continue on Lasix 8. History of hemorrhagic CVA, MRI on admission showed right subdural fluid collection and bilateral posterior cerebral encephalomalacia 9. Anemia, microcytic microchromic, iron studies shows anemia of chronic disease, Hemoglobin is stable at 8.8 Physical Exam Narrative Physical exam: General: Alert, Oriented x3, Cooperative, appears frail HEENT: Status post tracheostomy, trach collar, FiO2 40% Oral: Moist Mucosa Neck: Supple Lungs: Diminished to auscultation Cardiovascular: HS I+II, regular, no murmurs Abdomen: PEG tube in situ, bowel Sounds Present, Soft, Non Tender Extremities: No edema Skin: No rashes, No breakdown Neurological: Grossly intact Psych/Mental Status: Appropriate Medical Records Data Medical Nutrition Assessment Dietitian: Malnutrition Criteria Met Start: 06/30/22 10:32 Freq: Status: Active Protocol: Document 07/22/22 14:31 (Rec: 07/22/22 14:31 AG [id number]) Nutrition Malnutrition Evidence of Malnutrition Exists Yes Malnutrition (severe): Chronic Evidenced By Weight Loss (Severe),Physical Changes (Moderate) Clinical Problem Chronic Disease or Condition Related Malnutrition Etiology severe, chronic malnutrition related to predicted inadequate oral intake Signs/Symptoms as evidenced by 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 Will schedule enteral nutrition for 0900, 1200, 1600, and 1900 around dilantin administration . Weight / BMI Weight Weight: 57.2 kg Body Mass Index (BMI) 22.9 ABG / Lab / Microbiology Data Result Diagrams: 07/25/22 06:56 07/25/22 06:56 Laboratory: Laboratory Results - last 24 hr 07/25/22 06:56: WBC 7.6, RBC 3.14 L, Hgb 9.0 L, Hct 30.3 L, MCV 96.5, MCH 28.7, MCHC 29.7 L, RDW Std Deviation 56.9 H, RDW Coeff of Deonte 16.1 H, Plt Count 265, MPV 9.9, Immature Gran % (Auto) 1.800 H, Neut % (Auto) 64.3, Lymph % (Auto) 21.4, [place] % (Auto) 8.4, Eos % (Auto) 3.4, Baso % (Auto) 0.7, Absolute Neuts (au to) 4.9, Absolute Lymphs (auto) 1.63, Nucleated RBC % 0 07/25/22 06:56: Sodium 140, Potassium 3.9, Chloride 99, Carbon Dioxide 39.0 H, Anion Gap 2 L, BUN 17, Creatinine 0.51 L, Estim Creat Clear Calc 45.16, Est GFR (MDRD) Af Amer 154, Est GFR (MDRD) Non-Af 128, BUN/Creatinine Ratio 33.3 H, Glucose 108 H, Calcium 9.4, Total Bilirubin 0.20, AST 14 L, ALT 31, Alkaline Phosphatase 109, Total Protein 7.1, Albumin 2.8 L, Globulin 4.3 H, Albumin/Globulin Ratio 0.7 L Microbiology: Microbiology 07/25/22 09:48 Nasal Secretion SARS-CoV-2 Antigen (Rapid) - Final 07/20/22 05:29 Sputum, Induced/Lukens Gram Stain - Final 07/20/22 05:29 Sputum, Induced/Lukens Respiratory Culture - Final Staphylococcus aureus 07/03/22 03:10 Sputum, Induced/Lukens Gram Stain - Final 07/03/22 03:10 Sputum, Induced/Lukens Respiratory Culture - Final Culture exhibits no growth. 06/29/22 23:15 Blood Culture (Wb) - Anticubital Right Blood Culture - Final No growth in 5 days. 06/29/22 22:48 Blood Culture (Wb) - Anticubital Right Blood Culture - Final No growth in 5 days. 06/30/22 02:25 Sputum, Tracheal Aspirate Gram Stain - Final 06/30/22 02:25 Sputum, Tracheal Aspirate Respiratory Culture - Final 06/29/22 23:25 Urine Catheter - Fortune Urine Culture - Final Escherichia coli 06/30/22 02:35 Mucosa - Nasopharyngeal Respiratory Panel (PCR) - Final 06/29/22 23:30 Nasal Secretion SARS-CoV-2 & FLU Antigen (Rapid) - Final D/C Instructions Discharge Diet: No restrictions Meaningful Use Info Meaningful Use Diagnoses (Choose all that apply): None applicable Discharge Plan Admission Admit Date/Time: 06/30/22 00:59 Primary Reason for Your Visit: Altered mental status/seizure Attending Provider: Daniela Bruce Primary Care Provider: Maryam Pineda Consulting Providers: Anurag Flannery ; Yazmin Buitrago ; Yash Mancilla ; César Cagle ; Nelson Kelsey ; Guero Tuttle Instructions Additional Instructions / Restrictions: Pt is going to [facility] Discharge Orders/Prescriptions Prescriptions: New acetaminophen 650 mg/20.3 mL Solution 650 mg G-tube Q4H PRN PRN (Reason: Pain 1-10 Or Fever) Qty: 0 0RF buspirone 5 mg Tablet 10 mg G-tube BID Qty: 0 0RF ipratropium-albuterol 0.5 mg-3 mg(2.5 mg base)/3 mL Solution For Nebulization 3 ml inhalation Q6HWA.RT Qty: 0 0RF albuterol sulfate 2.5 mg /3 mL (0.083 %) Solution For Nebulization 2.5 mg inhalation Q2H PRN PRN (Reason: Dyspnea, wheezing) Qty: 0 0RF furosemide 10 mg/mL Solution 20 mg G-tube BIDLX Qty: 0 0RF sennosides-docusate sodium [Stool Softener-Stimulant Laxat] 8.6-50 mg Tablet 2 tab G-tube BID Qty: 0 0RF quetiapine 100 mg Tablet 150 mg G-tube BID Qty: 0 0RF potassium chloride 20 mEq/15 mL Liquid 40 meq G-tube BID Qty: 0 0RF famotidine 20 mg Tablet 20 mg G-tube BID Qty: 0 0RF oxycodone 5 mg Tablet 5 mg G-tube Q6H PRN PRN (Reason: Pain Score 6-10) 3 Days Qty: 0 0RF levetiracetam 100 mg/mL Solution 500 mg G-tube BID Qty: 0 0RF phenytoin 100 mg/4 mL Suspension 100 mg G-tube Q8 30 Days Qty: 0 0RF Jevity 1.5 Kelvin 0.06 gram-1.5 kcal/mL Liquid 240 ml G-tube 0900,1200,1600,1900 Qty: 0 0RF zolpidem [Ambien] 5 mg tablet 5 mg PO QHS PRN (Reason: insomnia) 30 Days Qty: 30 0RF Continued albuterol sulfate [Ventolin HFA] 90 mcg/actuation HFA aerosol inhaler 2 puff inhalation Q4H PRN (Reason: shortness of breath or wheezing) Qty: 18 6RF mecobalamin (vitamin B12) 5,000 mcg tablet,disintegrating 5,000 mcg PO DAILY pantoprazole [Protonix] 40 mg Tablet,Delayed Release (Dr/Ec) 40 mg PO DAILY folic acid 1 mg Tablet 1 mg PO DAILY aspirin 81 mg Tablet 81 mg PO DAILY cholecalciferol (vitamin D3) [Vitamin D3] 25 mcg (1,000 unit) Tablet 25 mcg PO DAILY albuterol sulfate 1.25 mg/3 mL Solution For Nebulization 1.25 mg INHALATION Q4H PRN (Reason: Shortness Of Breath Or Wheezing) [id number] 100-62.5-25 mcg blister with device 1 inh inhalation DAILY Qty: 60 3RF Discontinued escitalopram oxalate [Lexapro] 10 mg tablet 10 mg PO DAILY zolpidem 10 mg tablet 10 mg PO QHS PRN (Reason: Sleep) losartan 25 mg tablet 25 mg PO DAILY spironolactone 25 mg Tablet 12.5 mg PO DAILY Hold Instructions: symptoms of low blood pressure 12/02/21 Label Comments: on hold until instructed to resume ropinirole 0.5 mg Tablet 0.5 mg PO QHS duloxetine 60 mg Capsule,Delayed Release(Dr/Ec) 60 mg PO DAILY potassium chloride 20 mEq Tablet Extended Release 20 meq PO DAILY hydroxyzine pamoate [Vistaril] 25 mg capsule 25 mg PO BID PRN (Reason: itching) Qty: 20 0RF prednisone 20 mg tablet 60 mg PO DAILY Qty: 15 0RF hydrocodone-acetaminophen [hydrocodone-acetaminophen] 5-325 mg tablet 1 tab PO Q4H PRN PRN (Reason: Pain) 2 Days Qty: 10 0RF cephalexin [cephalexin] 500 mg capsule 500 mg PO Q8H Qty: 30 0RF Referrals / Follow Up: Maryam Pineda MD [Primary Care Provider] - Disposition Disposition (needs filled in before D/C Order can be placed): Long-Term Facility Charges/Coding Visit Charges Inpatient E&M: 07048 Disch Hosp >30min
[2022-07-25 10:46] VITALS: BP 117/63; PULSE 103; RESP 18; TEMP 37.1; O2SAT 98
--- NOTE | 2022-07-25 11:47 | NURSING ---
Report called to FINESSE Fuentes at [facility] in [place].
[2022-07-25 12:22] VITALS: O2SAT 100
== END 2022-07-25 12:40 | disposition skilled nursing facility (03) | DRG 4 ==
LOC: ED 06-30 00:07 → ICU 06-30 03:40 → PCU 07-18 17:28
PROVIDERS: Internal Medicine; Internal Medicine Critical Care Medicine; Internal Medicine Gastroenterology; Otolaryngology; Admitting Provider Family Medicine; Emergency Provider Emergency Medicine; PCP Internal Medicine; Visit Provider Internal Medicine
PROC: 0DJ08ZZ Inspection of Upper Intestinal Tract, Via Natural or Artificial Opening Endoscopic (ICD-10-PCS; CPT 43235; principal; 2022-07-09 13:25)
PROC: 0B110F4 Bypass Trachea to Cutaneous with Tracheostomy Device, Open Approach (ICD-10-PCS; principal; 2022-07-10 11:15)
DX: J96.21 Acute and chronic respiratory failure with hypoxia (principal); R57.8 Other shock; I50.23 Acute on chronic systolic (congestive) heart failure; G93.41 Metabolic encephalopathy; E43 Unspecified severe protein-calorie malnutrition; E27.40 Unspecified adrenocortical insufficiency; I42.8 Other cardiomyopathies; N30.00 Acute cystitis without hematuria; D69.6 Thrombocytopenia, unspecified; D63.8 Anemia in other chronic diseases classified elsewhere; I27.21 Secondary pulmonary arterial hypertension; J96.22 Acute and chronic respiratory failure with hypercapnia; J44.9 Chronic obstructive pulmonary disease, unspecified; I11.0 Hypertensive heart disease with heart failure; G40.909 Epilepsy, unspecified, not intractable, without status epilepticus; H57.04 Mydriasis; G47.33 Obstructive sleep apnea (adult) (pediatric); E78.5 Hyperlipidemia, unspecified; F41.9 Anxiety disorder, unspecified; I25.10 Atherosclerotic heart disease of native coronary artery without angina pectoris; E87.6 Hypokalemia; D50.9 Iron deficiency anemia, unspecified; Z86.73 Personal history of transient ischemic attack (TIA), and cerebral infarction without residual deficits; Z99.81 Dependence on supplemental oxygen; Z87.891 Personal history of nicotine dependence; F32.A Depression, unspecified; Z79.82 Long term (current) use of aspirin; T40.415A Adverse effect of fentanyl or fentanyl analogs, initial encounter; T41.295A Adverse effect of other general anesthetics, initial encounter; B96.20 Unspecified Escherichia coli [E. coli] as the cause of diseases classified elsewhere; R13.12 Dysphagia, oropharyngeal phase; Z79.899 Other long term (current) drug therapy; Y92.239 Unspecified place in hospital as the place of occurrence of the external cause; Z68.22 Body mass index [BMI] 22.0-22.9, adult
CPT/HCPCS: 31500; 31720; 36415; 36569; 36600; 51702; 70450; 70551; 71045; 74018; 74230; 80048; 80053; 80076; 80185; 80307; 81001; 82077; 82550; 82728; 82803; 82962; 83540; 83550; 83605; 83690; 83735; 84100; 84439; 84443; 84478; 84484; 85025; 85610; 85730; 86850; 86900; 86901; 87040; 87070; 87077; 87086; 87088; 87186; 87205; 87426; 87428; 87633; 92507; 92526; 92610; 92611; 93005; 94002; 94003; 94640; 94660; 94762; 94799; 95819; 97110; 97116; 97162; 97166; 97530; 97535; 97802; 97803; 99251; 99285; J2997; J7030; J7050; A4216; G0463; J1940; J2310; J2405; J2916; J3010; J3490

== ENCOUNTER 2022-10-08 22:57 | Inpatient (IN) | payer MEDICARE, SELFPAY ==
[2022-10-08 22:59] VITALS: BP 122/94; PULSE 126; RESP 26; TEMP 36.3; O2SAT 96; BMI 21.6
--- NOTE | 2022-10-08 23:15 | RAD_ITS ---
INDICATION: dyspnea EXAMINATION: Frontal view of the chest COMPARISON: Chest x-ray July 14, 2022. FINDINGS: Frontal view of the chest was obtained. The tracheostomy tube and right PICC line have been removed. The cardiac silhouette is not enlarged. Interstitial markings are mildly increased throughout the lungs bilaterally, new since the prior exam. Airspace opacities are present in the lower lungs bilaterally, also new. No pneumothorax. RAD/Chest 1 View (Portable) IMPRESSION: Opacities in the lower lungs bilaterally concerning for infection or aspiration. Electronically Signed: Abdon Bruner MD at 0:00 EDT ,
[2022-10-08 23:31] LABS: Absolute Lymphocyte Count 8.35 X10^3/uL (0.83-4.51); Absolute Neutrophil Count 10.2 X10^3/uL (2.0-7.7); Basophil# 0.12 X10^3/uL; Basophil% 0.6 % (0-1); Eosinophil# 0.27 X10^3/uL; Eosinophils% 1.3 % (0-5); Hematocrit 39.4 % (37-47); Hemoglobin 11.8 g/dL (12.0-15.0); Lymphocyte # 8.35 X10^3/ul (0.83-4.51); Lymphocyte % 39.7 % (19-41); Mean Corp Hgb Conc 29.9 g/dL (32-36); Mean Corpuscular Hgb 28.6 pg (27.0-32.0); Mean Corpuscular Volume 95.6 fL (81-99); Mean Platelet Vol. 10.4 fl (6.2-12.0); Monocyte# 1.81 X10^3/uL; Monocyte% 8.6 % (0-10); NRBC Flagged by Analyzer 0 % (0-5); Neutrophil # 10.18 X10^3/uL (2.7-7.7); Neutrophil % 48.5 % (47-70); POSITIVE DIFFERENTIAL YES; POSITIVE MORPHOLOGY YES; Platelet Count 276 K/mm3 (150-450); RBC Distribution Width CV 13.5 % (11.6-14.6); RBC Distribution Width SD 47.9 fl (35.1-43.9); Red Blood Count 4.12 M/mm3 (4.2-5.4)
[2022-10-08] MEDS: MethylPREDNISolone 125 MG/2 ML Vial IV (23:31)
[2022-10-08] MEDS: Ipratropium/Albuterol Sulfate 3 ML AMPUL.NEB INHALATION ×2 (23:34)
[2022-10-08 23:35] VITALS: PULSE 120; PULSE 124; RESP 12; RESP 32; O2SAT 97
[2022-10-08 23:47] LABS: Anion Gap 8 (5-15); BUN 18 mg/dL (7-18); BUN/Creat Ratio 19.1 RATIO (10-20); Calcium,Total 8.8 mg/dL (8.5-10.1); Chloride 108 mmol/L (98-107); Creatinine, Serum 0.94 mg/dL (0.55-1.02); EST Glomerular Filtration Rate 63 mL/min (>60); Est Glom Filt Rate - Afr Amer 76 mL/min (>60); Estimated Creatinine Clearance 48.04 ml/min; Glucose 229 mg/dL (74-106); Sodium Level 143 mmol/L (136-145)
[2022-10-08 23:51] LABS: Differential Indicated SCAN CRITERIA MET
[2022-10-08 23:54] LABS: Atypical Lymphocyte 1+ %
[2022-10-08 23:57] LABS: Procalcitonin < 0.01 ng/mL (0.00-0.09)
[2022-10-08 23:58] LABS: BNP,B-Type NATRIURETIC PEPTIDE 1010.6 pg/mL (0-100)
[2022-10-09] VITALS (37 sets, daily range): BP systolic 58–156; BP diastolic 30–121; PULSE 0–122; RESP 12–31; TEMP 36.3–36.8; O2SAT 91–100; BMI 21.0
[2022-10-09 00:05] LABS: Mucous, Urine 0 SEEN /hpf (<or=2+); Squamous Epithelial Cells - UA 0 SEEN /hpf (5-10)
[2022-10-09 00:12] LABS: Color, Urine Yellow (Yellow); Glucose, Dipstick 100 mg/dl (Normal); Ketone-Dipstick 5 mg/dl (Negative); Leukocyte Esterase-Dipstick Negative /ul (Negative); Nitrite-Dipstick Negative (Negative); Occult Blood-Urine 50 /ul (Negative); Protein-Dipstick 500 mg/dl (Negative); Urine Bilirubin Dipstick Negative (Negative); Urine Clarity Sl. Cloudy (Clear); Urine Urobilinogen 1 mg/dl (Normal)
--- NOTE | 2022-10-09 00:30 | EX.ED.DYSGE1 ---
HPI History of Present Illness Chief Complaint: Shortness of Breath Narrative Narrative: Patient is a 66-year-old female with past medical history of heart failure COPD obstructive sleep apnea and Takotsubo cardiomyopathy. She was admitted to the hospital in July for respiratory failure and needed intubated. According to patient and family she has been doing well but this evening while at home developed increased shortness of breath. Reported there was some slight confusion with this and daughter felt that was related to hypoxia as she seen her confused before when her oxygen drops low. EMS was called secondary to this interplay patient's oxygen level was 75% and with this she was placed on oxygen given breathing treatments and sent to the hospital for further evaluation. [facility] Medical History (Updated 10/09/22 @ 01:[address] Malvin Aldridge, ) Alcohol abuse Anxiety Anxiety and depression Benign neoplasm of colon Carcinoma in situ of breast Chronic anemia Chronic systolic (congestive) heart failure CO2 narcosis Congestive heart failure (CHF) COPD (chronic obstructive pulmonary disease) Daytime hypersomnia Essential (primary) hypertension Fall GERD (gastroesophageal reflux disease) Head concussion Hemorrhagic cerebrovascular accident (CVA) (02/09/17) History of DVT of lower extremity (02/11/17) History of non-ST elevation myocardial infarction (NSTEMI) (02/03/17) Hypercarbia Hyperlipidemia Insomnia Ischemic cerebrovascular accident (CVA) (02/06/17) Non-ischemic cardiomyopathy Non-rheumatic mitral regurgitation TIO (obstructive sleep apnea) Respiratory insufficiency Secondary pulmonary arterial hypertension Stroke Takotsubo cardiomyopathy (06/17/21) TIA (transient ischemic attack) (10/25/19) Weakness due to old stroke Home Medications aspirin 81 mg tablet 81 mg PO DAILY heart health 11/03/20 [History Last Taken Unknown] cholecalciferol (vitamin D3) 25 mcg (1,000 unit) tablet (Vitamin D3) 25 mcg PO DAILY supplement 11/03/20 [History Last Taken Unknown] folic acid 1 mg tablet 1 mg PO DAILY supplement 11/03/20 [History Last Taken Unknown] pantoprazole 40 mg tablet,delayed release (Protonix) 40 mg PO DAILY GERD 11/03/20 [History Last Taken Unknown] albuterol sulfate 90 mcg/actuation aerosol inhaler (Ventolin HFA) 2 puff inhalation Q4H PRN shortness of breath or wheezing #18 grams 12/23/20 [Rx Last Taken Unknown] albuterol sulfate 1.25 mg/3 mL solution for nebulization 1.25 mg inhalation Q4H PRN Shortness Of Breath Or Wheezing 06/15/21 [History Last Taken Unknown] mecobalamin (vitamin B12) 5,000 mcg disintegrating tablet 5,000 mcg PO DAILY 07/07/21 [History Last Taken Unknown] acetaminophen 650 mg/20.3 mL oral solution 650 mg (20.3 mL) G-tube Q4H PRN PRN Pain 1-10 Or Fever #0 mL 07/25/22 [Rx Last Taken Unknown] albuterol sulfate 2.5 mg/3 mL (0.083 %) solution for nebulization 2.5 mg (3 mL) inhalation Q2H PRN PRN Dyspnea, wheezing #0 mL 07/25/22 [Rx Last Taken Unknown] buspirone 5 mg tablet 10 mg G-tube BID #0 tabs 07/25/22 [Rx Last Taken Unknown] famotidine 20 mg tablet 20 mg G-tube BID #0 tabs 07/25/22 [Rx Last Taken Unknown] furosemide 10 mg/mL oral solution 20 mg (2 mL) G-tube BIDLX #0 mL 07/25/22 [Rx Last Taken Unknown] ipratropium 0.5 mg-albuterol 3 mg (2.5 mg base)/3 mL nebulization soln 3 ml inhalation Q6HWA.RT #0 mL 07/25/22 [Rx Last Taken Unknown] lactose-reduced food with fiber 0.06 gram-1.5 kcal/mL oral liquid (Jevity 1.5 Kelvin) 240 ml G-tube 0900,1200,1600,1900 #0 mL 07/25/22 [Rx Last Taken Unknown] levetiracetam 100 mg/mL oral solution 500 mg (5 mL) G-tube BID #0 mL 07/25/22 [Rx Last Taken Unknown] oxycodone 5 mg tablet 5 mg G-tube Q6H PRN PRN Pain Score 6-10 3 days #0 tabs 07/25/22 [Rx Last Taken Unknown] phenytoin 100 mg/4 mL oral suspension 100 mg (4 mL) G-tube Q8 30 days #0 mL 07/25/22 [Rx Last Taken Unknown] potassium chloride 20 mEq/15 mL oral liquid 40 meq (30 mL) G-tube BID #0 mL 01/21/23 [Rx Last Taken Unknown] quetiapine 100 mg tablet 150 mg G-tube BID #0 tabs 07/25/22 [Rx Last Taken Unknown] sennosides 8.6 mg-docusate sodium 50 mg tablet (Stool Softener-Stimulant Laxative) 2 tab G-tube BID #0 tabs 07/25/22 [Rx Last Taken Unknown] zolpidem 5 mg tablet (Ambien) 5 mg PO QHS PRN insomnia 30 days #30 tabs 07/25/22 [Rx Last Taken Unknown] aripiprazole 2 mg tablet (Abilify) 2 mg PO DAILY 08/25/22 [History Last Taken Unknown] atorvastatin 40 mg tablet 40 mg PO QHS 08/25/22 [History Last Taken Unknown] metoprolol succinate 25 mg tablet,extended release 24 hr 25 mg PO DAILY 08/25/22 [History Last Taken Unknown] amoxicillin 500 mg-potassium clavulanate 125 mg tablet 1 tab PO Q12H #14 tabs 08/28/22 [Rx Last Taken Unknown] fluticasone fur. 100 mcg-umeclid 62.5 mcg-vilant 25 mcg inhalat.powder 1 inh inhalation DAILY COPD #60 ea 08/28/22 [Rx Last Taken Unknown] Allergy/AdvReac Type Severity Reaction Status Date / Time tetanus and diphtheria Allergy Hives Verified 06/29/22 22:19 toxoids [tetanus & diphtheria toxoids] Family History Sister Cancer lung Father Cancer lung Mother Cancer lung Surgical History (Updated 10/09/22 @ 01:[address] Francesca Anne DO) H/O: section History of bilateral cataract extraction History of cholecystectomy History of left heart catheterization (06/17/21) History of lumpectomy History of tracheostomy Hx of appendectomy S/P percutaneous endoscopic gastrostomy (PEG) tube placement Social History household members: none Smoking Status: Former smoker how long ago did patient quit smokin, 1pk/day second hand exposure: Yes alcohol intake: former substance use type: does not use what type of physical activity do you participate in: walking frequency: daily ROS ROS ED Constitutional Constitutional ED: Reports sweats; Denies chills or fever(s) ENT ENT ED: Denies rhinorrhea or sore throat Cardiovascular Cardiovascular: Reports racing heartbeat; Denies chest pain Respiratory/Chest Respiratory/Chest: Reports cough, dyspnea and dyspnea on exertion Gastrointestinal Gastrointestinal: Denies abdominal pain, diarrhea, nausea or vomiting Genitourinary Genitourinary ED: Denies dysuria Musculoskeletal Musculoskeletal: Denies myalgias Integumentary Denies rash Neurologic Neurologic: Reports weakness; Denies headache(s) Hematologic/Lymphatic Hematologic/Lymphatic: Denies easy bleeding or easy bruising EXAM Physical Exam Const Vital Signs: 10/08/22 22:59 10/08/22 23:03 10/08/22 23:35 Temperature 97.4 F L Temperature Source Temporal Pulse Rate 126 H 120 H Respiratory Rate 26 H 32 H Respiratory Effort Short of Breath Respiratory Pattern Tachypnea Tachypnea Blood Pressure 122/94 H Blood Pressure Mean 103 Pulse Ox 96 Oxygen Delivery Method Simple Mask Oxygen Flow Rate (L/min) 7 Fraction of Inspired Oxygen (FIO2) 10/08/22 23:35 10/09/22 00:33 Temperature 98.0 F Temperature Source Temporal Pulse Rate 124 H 111 H Respiratory Rate 32 H 28 H Respiratory Effort Respiratory Pattern Tachypnea Blood Pressure 111/68 Blood Pressure Mean 82 Pulse Ox 97 95 Oxygen Delivery Method Bi-pap Oxygen Flow Rate (L/min) Fraction of Inspired Oxygen (FIO2) 60 Positive well nourished and well developed General Appearance ED: well developed, diaphoretic and pallor HEENT Reports moist mucous membranes HEENT Narrative: No tongue or lip swelling no oral lesions no airway edema or compromise Eyes PERRL and EOMs intact bilaterally General Eye ED: Yes pale conjunctiva Neck supple Neck Narrative: No nuchal rigidity or meningeal signs noted No JVD present Chest Wall palpation of chest normal Chest Narrative: No bony deformity or crepitance Resp Resp Narrative: Patient is in moderate respiratory distress with tachypnea and accessory muscle use as well as mild retractions. Breath sounds are severely diminished throughout with questionable wheeze in the lower lung smith bilateral. Cardio regular rhythm Rate: tachycardic and other Other Details: Radial pulses are plus 2 out of 4 bilaterally are equal and symmetric GI non-tender and non-distended GI Narrative: Abdomen is soft nontender nondistended with hypoactive bowel sounds. No voluntary guarding or rigidity. No pulsatile mass or fluid wave. Auscultation: hypoactive bowel sounds Palpation: soft Extremity normal to inspection Extremity Narrative: No asymmetric edema no pitting edema negative Homans' sign bilaterally Neuro oriented x3 and CN's II-XII intact bilaterally Sensorium / Orientation: alert Psych Psych Narrative: Patient has a flat affect Skin Skin Narrative: Skin is pale and diaphoretic General Skin Exam: pallor MDM MDM MDM Narrative Medical decision making narrative: Patient presented to the ER hypoxic with an SPO2 of approximately 75% on room air. Despite EMS given breathing treatments there is minimal air movement and just faint wheezes. Based on the patient's past medical history there is concern for pneumonia leading to acute on chronic respiratory failure as well as COPD exacerbation or CHF. Also with past history of UTI there is concern for this once again. Secondary to this basic blood work with chest x-ray and urine sample were obtained. Chest x-ray that showed bilateral opacities in the lower lobes which is suggestive of infection and patient's white count is elevated at 21. Secondary to this lactic acid was added blood cultures as well and she was started on vancomycin and Zosyn. Her proBNP is elevated from approximately 280 in October 24 to a value of 1000 today also concerning for acute congestive heart failure. Therefore Lasix was added. Based on the patient's tachypnea accessory muscle use and retractions she was placed on BiPAP on arrival. This noninvasive breathing apparatus did help with the patient's work of breathing and her tachypnea and work of breathing improved. At this time patient is high risk for decompensation and therefore she will need to be kept in the ICU for close observation throughout the night. The case was discussed with the medicine physician and she agrees with this and therefore admit the patient at this time. History & Record Review Discussion w/independent historian: EMS personnel, Patient and Family Additional record(s) reviewed:: Prior inpatient record Lab Data Attestation: I reviewed the patient's lab results. Labs: Laboratory Results - last 24 hr 10/08/22 10/08/22 10/08/22 23:15 23:15 23:15 WBC 21.0 H RBC 4.12 L Hgb 11.8 L Hct 39.4 MCV 95.6 MCH 28.6 MCHC 29.9 L RDW Std Deviation 47.9 H RDW Coeff of Deonte 13.5 Plt Count 276 MPV 10.4 Immature Gran % (Auto) 1.300 H Neut % (Auto) 48.5 Lymph % (Auto) 39.7 Kaufman % (Auto) 8.6 Eos % (Auto) 1.3 Baso % (Auto) 0.6 Absolute Neuts (auto) 10.2 H Absolute Lymphs (auto) 8.35 H Nucleated RBC % 0 Diff Path Review May foll Atypical Lymphocytes 1+ Sodium 143 Potassium 5.0 Chloride 108 H Carbon Dioxide 27.0 Anion Gap 8 BUN 18 Creatinine 0.94 Estim Creat Clear Calc 48.04 Est GFR (MDRD) Af Amer 76 Est GFR (MDRD) Non-Af 63 BUN/Creatinine Ratio 19.1 Glucose 229 H Lactic Acid Calcium 8.8 Magnesium 2.0 B-Natriuretic Peptide 1010.6 H Procalcitonin Urine Color Urine Clarity Urine pH Ur Specific [place] Urine Protein Urine Glucose (UA) Urine Ketones Urine Occult Blood Urine Nitrite Urine Bilirubin Urine Urobilinogen Ur Leukocyte Esterase Urine RBC Urine WBC Ur Squamous Epith Cells Amorphous Sediment Urine Bacteria Coarse Granular Casts Urine Mucus 10/08/22 10/08/22 10/09/22 23:15 23:15 00:00 WBC RBC Hgb Hct MCV MCH MCHC RDW Std Deviation RDW Coeff of Deonte Plt Count MPV Immature Gran % (Auto) Neut % (Auto) Lymph % (Auto) Kaufman % (Auto) Eos % (Auto) Baso % (Auto) Absolute Neuts (auto) Absolute Lymphs (auto) Nucleated RBC % Diff Path Review Atypical Lymphocytes Sodium Potassium Chloride Carbon Dioxide Anion Gap BUN Creatinine Estim Creat Clear Calc Est GFR (MDRD) Af Amer Est GFR (MDRD) Non-Af BUN/Creatinine Ratio Glucose Lactic Acid 3.0 H* Calcium Magnesium B-Natriuretic Peptide Procalcitonin < 0.01 Urine Color Yellow Urine Clarity Sl. Cloudy Urine pH 6.0 Ur Specific [place] 1.020 Urine Protein 500 H Urine Glucose (UA) 100 H Urine Ketones 5 H Urine Occult Blood 50 H Urine Nitrite Negative Urine Bilirubin Negative Urine Urobilinogen 1 H Ur Leukocyte Esterase Negative Urine RBC 0-5 SEEN Urine WBC 5-10 SEEN Ur Squamous Epith Cells 0 SEEN Amorphous Sediment 2+ Urine Bacteria 2+ Coarse Granular Casts 0-5 SEEN Urine Mucus 0 SEEN Radiography Diagnostic Testing: Clinical Impression(s) from Imaging Studies Chest X-Ray 10/08/22 23:15 IMPRESSION: Opacities in the lower lungs bilaterally concerning for infection or aspiration. 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, Discussing w/Consultants and - (Critical care time of 33 minutes) Discharge Plan Triage Chief Complaint: Shortness of Breath ED Provider: Malvin Aldridge Dx/Rx/DC Orders Clinical Impression: Acute on chronic respiratory failure with hypoxia, COPD (chronic obstructive pulmonary disease), Congestive heart failure, Urinary tract infection Prescriptions: No Action albuterol sulfate [Ventolin HFA] 90 mcg/actuation HFA aerosol inhaler 2 puff inhalation Q4H PRN (Reason: shortness of breath or wheezing) Qty: 18 6RF mecobalamin (vitamin B12) 5,000 mcg tablet,disintegrating 5,000 mcg PO DAILY atorvastatin 40 mg tablet 40 mg PO QHS metoprolol succinate 25 mg tablet extended release 24 hr 25 mg PO DAILY aripiprazole [Abilify] 2 mg tablet 2 mg PO DAILY amoxicillin-pot clavulanate 500-125 mg tablet 1 tab PO Q12H Qty: 14 0RF pantoprazole [Protonix] 40 mg Tablet,Delayed Release (Dr/Ec) 40 mg PO DAILY folic acid 1 mg Tablet 1 mg PO DAILY aspirin 81 mg Tablet 81 mg PO DAILY cholecalciferol (vitamin D3) [Vitamin D3] 25 mcg (1,000 unit) Tablet 25 mcg PO DAILY albuterol sulfate 1.25 mg/3 mL Solution For Nebulization 1.25 mg INHALATION Q4H PRN (Reason: Shortness Of Breath Or Wheezing) acetaminophen 650 mg/20.3 mL Solution 650 mg G-tube Q4H PRN PRN (Reason: Pain 1-10 Or Fever) Qty: 0 0RF buspirone 5 mg Tablet 10 mg G-tube BID Qty: 0 0RF ipratropium-albuterol 0.5 mg-3 mg(2.5 mg base)/3 mL Solution For Nebulization 3 ml inhalation Q6HWA.RT Qty: 0 0RF albuterol sulfate 2.5 mg /3 mL (0.083 %) Solution For Nebulization 2.5 mg inhalation Q2H PRN PRN (Reason: Dyspnea, wheezing) Qty: 0 0RF furosemide 10 mg/mL Solution 20 mg G-tube BIDLX Qty: 0 0RF sennosides-docusate sodium [Stool Softener-Stimulant Laxat] 8.6-50 mg Tablet 2 tab G-tube BID Qty: 0 0RF quetiapine 100 mg Tablet 150 mg G-tube BID Qty: 0 0RF potassium chloride 20 mEq/15 mL Liquid 40 meq G-tube BID Qty: 0 0RF famotidine 20 mg Tablet 20 mg G-tube BID Qty: 0 0RF oxycodone 5 mg Tablet 5 mg G-tube Q6H PRN PRN (Reason: Pain Score 6-10) 3 Days Qty: 0 0RF levetiracetam 100 mg/mL Solution 500 mg G-tube BID Qty: 0 0RF phenytoin 100 mg/4 mL Suspension 100 mg G-tube Q8 30 Days Qty: 0 0RF Jevity 1.5 Kelvin 0.06 gram-1.5 kcal/mL Liquid 240 ml G-tube 0900,1200,1600,1900 Qty: 0 0RF zolpidem [Ambien] 5 mg tablet 5 mg PO QHS PRN (Reason: insomnia) 30 Days Qty: 30 0RF [id number] 100-62.5-25 mcg blister with device 1 inh inhalation DAILY Qty: 60 11RF Primary Care Provider: Maryam Pineda Referrals: Maryam Pineda MD [Primary Care Provider] - Disposition Disposition: Acute Care [facility]
[2022-10-09] MEDS: Furosemide 40 MG/4 ML Vial IV ×3 (00:35→13:45)
[2022-10-09 00:39] LABS: Amorphous Sediment 2+; Bacteria 2+ /hpf (None Seen); Coarse Granular Cast 0-5 SEEN /lpf (0-5 /lpf); Red Blood Cells-Urine 0-5 SEEN /hpf (0-5); White Blood Cells 5-10 SEEN /hpf (0-5)
--- NOTE | 2022-10-09 00:59 | CT_ITS ---
EXAM: CT pulmonary angiogram. HISTORY: Hypoxia TECHNIQUE: CTA Chest WO/W Contrast Injection A radiation dose optimization technique was used for this scan. Multiplanar reconstructions were obtained. 3-D postprocessing was performed. COMPARISON: CTA chest March 19, 2022. LIMITATIONS: Motion artifact. LUNGS: Emphysematous changes. Patchy airspace opacities are present bilaterally with more confluent airspace disease in the dependent bilateral lower lobes. PULMONARY VESSELS: No pulmonary emboli identified. PLEURA: Small bilateral pleural effusions. MEDIASTINUM: Normal. HEART: Upper normal in size. AORTA: No thoracic aortic aneurysm or dissection. UPPER ABDOMEN: No significant abnormality. BONES/SOFT TISSUES: No acute fracture. OTHER: None. CONCLUSION: Motion artifact. No pulmonary emboli identified. Airspace opacities bilaterally concerning for infection and/or aspiration. Emphysematous changes. Small bilateral pleural effusions. Electronically Signed: Abdon Bruner MD at 4:16 EDT , CT/CTA Chest W/WO Contrast IMPRESSION: undefined
--- NOTE | 2022-10-09 01:02 | ECHOCS_ITS ---
Reason For Study: Dyspnea/SOB Procedure This was a 2D Doppler, Color Flow transthoracic echocardiogram. The study was technically difficult. Contrast injection was performed. Exam performed portable in ICU/CCU. Left Ventricle Normal size and thickness. The left ventricular ejection fraction is 55 %. Normal diastology for age. Apical hypokinesis. Right Ventricle Normal right ventricle. Atria The left atrium is mildly enlarged. Normal right atrium. Mitral Valve Moderate (2+) eccentric mitral valve insufficiency. Tricuspid Valve Trivial tricuspid valve insufficiency. Unable to estimate RV systolic pressure due to insufficient tricuspid regurgitant envelope. Aortic Valve Normal aortic valve. Pulmonic Valve The pulmonic valve is not well visualized. Great Vessels The aortic root is not well visualized. Pericardium/Pleural No pericardial effusion. Medication Diluted definity 2ml given slow IV push to enhance endocardial definition. MMode/2D Measurements & Calculations LVIDd: 5.2 cm IVSd: 0.96 cm LA dimension: 3.5 cm LVIDs: 4.6 cm LVPWd: 0.97 cm RVDd: 3.7 cm FS: 12.6 % LAV(MOD-bp): 42.5 ml LVAd ap4: 34.1 cm2 SV(MOD-sp4): 53.4 ml LAV(MOD-bp) Indexed: 27.4 ml/m2 LVLd ap4: 7.3 cm LAV(MOD-sp2): 49.6 ml EDV(MOD-sp4): 129.4 ml LAV(MOD-sp4): 36.3 ml EDV(sp4-el): 134.0 ml LVAs ap4: 25.6 cm2 LVLs ap4: 7.0 cm ESV(MOD-sp4): 76.0 ml ESV(sp4-el): 79.1 ml EF(MOD-sp4): 41.2 % EF(sp4-el): 41.0 % SV(sp4-el): 55.0 ml LA A4 area: 15.2 cm2 RA A4 area: 8.8 cm2 Time Measurements MV dec time: 0.18 sec Doppler Measurements & Calculations MV E max james: 68.7 cm/sec Lat Peak E' James: 9.7 cm/sec Med Peak E' James: 5.2 cm/sec MV A max james: 108.7 cm/sec E/E' lat: 7.1 E/E' med: 13.2 MV E/A: 0.63 MV V2 max: 106.1 cm/sec MV P1/2t max james: 76.5 cm/sec Ao V2 max: 126.8 cm/sec MV max P.5 mmHg MV P1/2t: 51.3 msec Ao max P.4 mmHg MV V2 mean: 56.6 cm/sec Ao V2 mean: 88.4 cm/sec MV mean P.5 mmHg MV dec slope: 436.7 cm/sec2 Ao mean P.6 mmHg MV V2 VTI: 18.2 cm MVA(P1/2t): 4.3 cm2 Ao V2 VTI: 24.7 cm AV (velocity ratio): 0.74 LV V1 max: 91.1 cm/sec MR max james: 532.7 cm/sec PA V2 max: 96.5 cm/sec LV V1 max P.3 mmHg MR max P.5 mmHg LV V1 mean P.0 mmHg MR mean james: 407.3 cm/sec LV V1 mean: 66.8 cm/sec MR mean P.5 mmHg LV V1 VTI: 18.2 cm MR VTI: 184.8 cm ECHO/Echo Complete W/ Contrast Interpretation Summary The left ventricular ejection fraction is 55 %. Apical hypokinesis. The left atrium is mildly enlarged. Moderate (2+) eccentric mitral valve insufficiency. Ordering Physician: Francesca Anne Performed By: Colin Evans RCS
--- NOTE | 2022-10-09 01:03 | PCM.HP.STD ---
HPI - General General Date of Admission: 10/09/22 Date of Service: 10/09/22 Chief Complaint: Shortness of breath HPI Narrative MARCO MAY, is a 66 F who presented to the emergency department at [facility] early in the morning on 10/09/2022 complaining of shortness of breath. Patient has a history of Takotsubo cardiomyopathy and COPD requiring 2 L nasal cannula at baseline. She had an extended hospitalization with subsequent hospitalizations starting in June of last year. Her last hospitalization was at [facility] in August. She did require a trach and PEG placement during her last hospitalization here however both have been since removed. The patient had been doing well up until this evening at which time she developed increased shortness of breath. Daughter reported she was slightly confused and her daughter was concerned that this was related to hypoxia. They have seen her become confused with hypoxemia previously. Patient reported that she has had sick contacts at home and that several people of which she lives have respiratory viral illnesses. EMS was called secondary to her oxygen saturation being at 75% on her baseline oxygen. She has had some associated chills, malaise, headache and nasal drainage prior to this evening. Vital signs on presentation showed a temperature of 97.4, heart rate 126, blood pressure 122/94, respiratory rate was anywhere from 26-32 and oxygen saturation was 96% on a mask but work of breathing was noted to be elevated. At home she was documented to be 75% on 2 L nasal cannula. CBC shows a leukocytosis with a white count of 21,000 however there is no left shift. Procalcitonin was normal. Chemistry panel is unremarkable. Her glucose was 229. Lactic acid was 3.0. BNP was markedly elevated at 1010.6. When compared to previous BNP measurements we have it is drastically elevated. Her urine does not demonstrate any signs of infection. Chest x-ray shows opacities in the bilateral lower lungs and central vascular congestion. Her EKG shows sinus tachycardia with normal intervals and no ST-T wave changes concerning for acute ischemia. In the emergency department she was placed on BiPAP and given a dose of Lasix, breathing treatments, and Solu-Medrol 125 mg x 1 dose. She is also treated with vancomycin and Zosyn. [facility] Medical History (Updated 10/09/22 @ 01:[address] Francesca Anne DO) Alcohol abuse Anxiety Anxiety and depression Benign neoplasm of colon Carcinoma in situ of breast Chronic anemia Chronic systolic (congestive) heart failure CO2 narcosis Congestive heart failure (CHF) COPD (chronic obstructive pulmonary disease) Daytime hypersomnia Essential (primary) hypertension Fall GERD (gastroesophageal reflux disease) Head concussion Hemorrhagic cerebrovascular accident (CVA) (02/09/17) History of DVT of lower extremity (02/11/17) History of non-ST elevation myocardial infarction (NSTEMI) (02/03/17) Hypercarbia Hyperlipidemia Insomnia Ischemic cerebrovascular accident (CVA) (02/06/17) Non-ischemic cardiomyopathy Non-rheumatic mitral regurgitation TIO (obstructive sleep apnea) Respiratory insufficiency Secondary pulmonary arterial hypertension Stroke Takotsubo cardiomyopathy (06/17/21) TIA (transient ischemic attack) (10/25/19) Weakness due to old stroke Home Medications aspirin 81 mg tablet 81 mg PO DAILY heart health 11/03/20 [History Last Taken Unknown] cholecalciferol (vitamin D3) 25 mcg (1,000 unit) tablet (Vitamin D3) 25 mcg PO DAILY supplement 11/03/20 [History Last Taken Unknown] folic acid 1 mg tablet 1 mg PO DAILY supplement 11/03/20 [History Last Taken Unknown] pantoprazole 40 mg tablet,delayed release (Protonix) 40 mg PO DAILY GERD 11/03/20 [History Last Taken Unknown] albuterol sulfate 90 mcg/actuation aerosol inhaler (Ventolin HFA) 2 puff inhalation Q4H PRN shortness of breath or wheezing #18 grams 12/23/20 [Rx Last Taken Unknown] albuterol sulfate 1.25 mg/3 mL solution for nebulization 1.25 mg inhalation Q4H PRN Shortness Of Breath Or Wheezing 06/15/21 [History Last Taken Unknown] mecobalamin (vitamin B12) 5,000 mcg disintegrating tablet 5,000 mcg PO DAILY 07/07/21 [History Last Taken Unknown] acetaminophen 650 mg/20.3 mL oral solution 650 mg (20.3 mL) G-tube Q4H PRN PRN Pain 1-10 Or Fever #0 mL 07/25/22 [Rx Last Taken Unknown] albuterol sulfate 2.5 mg/3 mL (0.083 %) solution for nebulization 2.5 mg (3 mL) inhalation Q2H PRN PRN Dyspnea, wheezing #0 mL 07/25/22 [Rx Last Taken Unknown] buspirone 5 mg tablet 10 mg G-tube BID #0 tabs 07/25/22 [Rx Last Taken Unknown] famotidine 20 mg tablet 20 mg G-tube BID #0 tabs 07/25/22 [Rx Last Taken Unknown] furosemide 10 mg/mL oral solution 20 mg (2 mL) G-tube BIDLX #0 mL 07/25/22 [Rx Last Taken Unknown] ipratropium 0.5 mg-albuterol 3 mg (2.5 mg base)/3 mL nebulization soln 3 ml inhalation Q6HWA.RT #0 mL 07/25/22 [Rx Last Taken Unknown] lactose-reduced food with fiber 0.06 gram-1.5 kcal/mL oral liquid (Jevity 1.5 Kelvin) 240 ml G-tube 0900,1200,1600,1900 #0 mL 07/25/22 [Rx Last Taken Unknown] levetiracetam 100 mg/mL oral solution 500 mg (5 mL) G-tube BID #0 mL 07/25/22 [Rx Last Taken Unknown] oxycodone 5 mg tablet 5 mg G-tube Q6H PRN PRN Pain Score 6-10 3 days #0 tabs 07/25/22 [Rx Last Taken Unknown] phenytoin 100 mg/4 mL oral suspension 100 mg (4 mL) G-tube Q8 30 days #0 mL 07/25/22 [Rx Last Taken Unknown] potassium chloride 20 mEq/15 mL oral liquid 40 meq (30 mL) G-tube BID #0 mL 07/25/22 [Rx Last Taken Unknown] quetiapine 100 mg tablet 150 mg G-tube BID #0 tabs 07/25/22 [Rx Last Taken Unknown] sennosides 8.6 mg-docusate sodium 50 mg tablet (Stool Softener-Stimulant Laxative) 2 tab G-tube BID #0 tabs 07/25/22 [Rx Last Taken Unknown] zolpidem 5 mg tablet (Ambien) 5 mg PO QHS PRN insomnia 30 days #30 tabs 07/25/22 [Rx Last Taken Unknown] aripiprazole 2 mg tablet (Abilify) 2 mg PO DAILY 08/25/22 [History Last Taken Unknown] atorvastatin 40 mg tablet 40 mg PO QHS 08/25/22 [History Last Taken Unknown] metoprolol succinate 25 mg tablet,extended release 24 hr 25 mg PO DAILY 08/25/22 [History Last Taken Unknown] amoxicillin 500 mg-potassium clavulanate 125 mg tablet 1 tab PO Q12H #14 tabs 08/28/22 [Rx Last Taken Unknown] fluticasone fur. 100 mcg-umeclid 62.5 mcg-vilant 25 mcg inhalat.powder 1 inh inhalation DAILY COPD #60 ea 08/28/22 [Rx Last Taken Unknown] Allergy/AdvReac Type Severity Reaction Status Date / Time tetanus and diphtheria Allergy Hives Verified 06/29/22 22:19 toxoids [tetanus & diphtheria toxoids] Family History Sister Cancer lung Father Cancer lung Mother Cancer lung Surgical History (Updated 10/09/22 @ 01:[address] Francesca Anne DO) H/O: section History of bilateral cataract extraction History of cholecystectomy History of left heart catheterization (06/17/21) History of lumpectomy History of tracheostomy Hx of appendectomy S/P percutaneous endoscopic gastrostomy (PEG) tube placement Social History household members: none Smoking Status: Former smoker how long ago did patient quit smokin, 1pk/day second hand exposure: Yes alcohol intake: former substance use type: does not use what type of physical activity do you participate in: walking frequency: daily ROS Constitutional Constitutional: Reports chills, malaise and weakness; Denies anorexia, change in weight, fatigue, fever(s), night sweats or other Eyes Eyes: Denies blurry vision, change in eye color, change in vision, discharge from eye(s), double vision, erythema, eye pain, loss of vision or other ENT HEENT: Reports headache(s), nasal congestion, nasal discharge, post nasal drip and sinus pressure; Denies abnormal hearing, dysphagia, ear pain, epistaxis, hearing loss, sore throat or other Cardiovascular Cardiovascular: Denies chest pain, claudication, dyspnea on exertion, edema, lightheadedness, orthopnea, palpitations, paroxysmal nocturnal dyspnea, rapid heart rate, syncope or other Respiratory/Chest Respiratory/Chest: Reports cough, dyspnea, shortness of breath at rest, shortness of breath with exertion and wheezing; Denies excessive phlegm production, hemoptysis, productive cough or other Gastrointestinal Gastrointestinal: Denies abdominal pain, coffee ground emesis, constipation, diarrhea, dyspepsia, hematemesis, hematochezia, loose stools, melena, nausea, vomiting or other Genitourinary Genitourinary: Denies burning urination, difficulty urinating, dysuria, hematuria, nocturia, urinary frequency, urinary hesitancy, urinary incontinence, urinary urgency or other Musculoskeletal Musculoskeletal: Denies arthralgias, back pain, joint pain, joint stiffness, joint swelling, myalgias, neck pain or other Neurologic Neurologic: Denies abnormal gait, abnormal speech, confusion, disequilibrium, dizziness, focal weakness, headache(s), numbness, paresthesias, seizure-like activity, seizures, syncope, tingling, tremor(s) or other Psychiatric Psychiatric: Reports anxiety and depression; Denies homicidal ideation, suicidal ideation or other Endocrine Endocrinology: Denies change in body appearance, cold intolerance, excessive sweating, heat intolerance, polydipsia, polyuria or other Hematologic/Lymphatic Hematologic/Lymphatic: Denies anemia, easy bleeding, easy bruising, lymphadenopathy or other Allergic/Immunologic Allergic/Immunologic: Denies rhinitis, hives, eczemia, asthma or other Vital Signs Vital Signs Vital Signs: 10/08/22 22:59 10/08/22 23:03 10/08/22 23:35 Temperature 97.4 F L Temperature Source Temporal Pulse Rate 126 H 120 H Respiratory Rate 26 H 32 H Respiratory Effort Short of Breath Respiratory Pattern Tachypnea Tachypnea Blood Pressure 122/94 H Blood Pressure Mean 103 Pulse Ox 96 Oxygen Delivery Method Simple Mask Oxygen Flow Rate (L/min) 7 Fraction of Inspired Oxygen (FIO2) 10/08/22 23:35 10/09/22 00:33 Temperature 98.0 F Temperature Source Temporal Pulse Rate 124 H 111 H Respiratory Rate 32 H 28 H Respiratory Effort Respiratory Pattern Tachypnea Blood Pressure 111/68 Blood Pressure Mean 82 Pulse Ox 97 95 Oxygen Delivery Method Bi-pap Oxygen Flow Rate (L/min) Fraction of Inspired Oxygen (FIO2) 60 Weight Weight: 55.3 kg Body Mass Index (BMI) 21.6 Physical Exam Const alert, oriented x3 and average body habitus Constitutional Narrative: Upper middle-aged white female, appears older than stated age, sitting up in a bed in the emergency department on BiPAP, appears ill but nontoxic HEENT normocephalic, head/scalp atraumatic and hearing grossly normal bilaterally HEENT Narrative: Dentition is poor, Mallampati is 2, no thrush, mucous membranes are dry from BiPAP Eyes PERRL, EOMs intact bilaterally and conjunctivae normal Neck no lymphadenopathy, supple and No no JVD Neck Narrative: Trachea midline, JVD is present, no thyroid enlargement Resp Resp Narrative: Diffuse inspiratory and expiratory wheezing with scattered crackles Auscultation: crackles and wheezes; Negative for rhonchi Cardio regular rhythm, S1 normal heart sound, S2 normal heart sound, no murmurs, no rub, no gallops and no clicks Cardio Narrative: Mild tachycardia GI normal to inspection, nondistended, normoactive bowel sounds, soft to palpation and non-tender Extremity no clubbing, cyanosis or edema Extremity Narrative: 2+ pedal pulses Skin no rashes or lesions noted, no wounds, skin turgor normal, no jaundice, no petechiae and no mottling Neuro oriented x3, CN's II-XII intact bilaterally, moves all extremities and no focal motor deficits Neuro Narrative: Unable to assess speech fully as patient was on BiPAP and vocal quality was muffled, follows all commands well Psych affect normal Mood & Affect: anxious Results Lab / Micro Data Attestation: I reviewed the patient's lab results. Result Diagrams: 10/08/22 23:15 10/08/22 23:15 Labs: Laboratory Results - last 24 hr 10/08/22 23:15: WBC 21.0 H, RBC 4.12 L, Hgb 11.8 L, Hct 39.4, MCV 95.6, MCH 28.6, MCHC 29.9 L, RDW Std Deviation 47.9 H, RDW Coeff of Deonte 13.5, Plt Count 276, MPV 10.4, Immature Gran % (Auto) 1.300 H, Neut % (Auto) 48.5, Lymph % (Auto) 39.7, Knox % (Auto) 8.6, Eos % (Auto) 1.3, Baso % (Auto) 0.6, Absolute Neuts (auto) 10.2 H, Absolute Lymphs (auto) 8.35 H, Nucleated RBC % 0, Diff Path Review May foll, Atypical Lymphocytes 1+ 10/08/22 23:15: Sodium 143, Potassium 5.0, Chloride 108 H, Carbon Dioxide 27.0, Anion Gap 8, BUN 18, Creatinine 0.94, Estim Creat Clear Calc 48.04, Est GFR (MDRD) Af Amer 76, Est GFR (MDRD) Non-Af 63, BUN/Creatinine Ratio 19.1, Glucose 229 H, Calcium 8.8, Magnesium 2.0 10/08/22 23:15: B-Natriuretic Peptide 1010.6 H 10/08/22 23:15: Procalcitonin < 0.01 10/08/22 23:15: Lactic Acid 3.0 H* 10/09/22 00:00: Urine Color Yellow, Urine Clarity Sl. Cloudy, Urine pH 6.0, Ur Specific Huxley 1.020, Urine Protein 500 H, Urine Glucose (UA) 100 H, Urine Ketones 5 H, Urine Occult Blood 50 H, Urine Nitrite Negative, Urine Bilirubin Negative, Urine Urobilinogen 1 H, Ur Leukocyte Esterase Negative, Urine RBC 0-5 SEEN, Urine WBC 5-10 SEEN, Ur Squamous Epith Cells 0 SEEN, Amorphous Sediment 2+, Urine Bacteria 2+, Coarse Granular Casts 0-5 SEEN, Urine Mucus 0 SEEN Micro: Microbiology 10/08/22 23:20 Nasal Secretion SARS-CoV-2 & FLU Antigen (Rapid) - Final Radiology Impression Chest X-Ray 10/08/22 23:15 IMPRESSION: Opacities in the lower lungs bilaterally concerning for infection or aspiration. Electronically Signed: Abdon Bruner MD at 0:00 EDT , Assessment & Plan Assessment/Plan (1) Acute on chronic respiratory failure with hypoxia and hypercapnia: (2) Acute decompensated heart failure: (3) COPD with acute exacerbation: (4) Lactic acidosis: (5) Leukocytosis: (6) Hyperglycemia: PLAN: Plan Acute on chronic hypoxic and hypercapnic respiratory failure secondary to acute exacerbation of COPD/decompensated heart failure -Patient is on 2 L nasal cannula at baseline -Recently decannulated tracheostomy -Missed most recent appointment with pulmonary medicine -Continue BiPAP [id number] for now and monitor for clinical improvement -BNP is markedly elevated -Lasix 40 mg 3 times daily -Check echocardiogram -Solu-Medrol 40 every 8 -Aggressive pulmonary toilet -Check respiratory viral panel -COVID and flu are negative -Check sputum if able to produce -Mucinex -I-S/Pep therapy -Low suspicion for bacterial pneumonia--> White count is elevated but normal differential and normal Pro-Kelvin -Was given vancomycin and Zosyn emergency department but will hold off on further antibiotics at this time -CTA of the chest is pending and if infiltrate is noted will initiate antibiotics -N.p.o. but okay for p.o. meds Acute exacerbation of COPD -See above Acute decompensated heart failure -BNP is markedly elevated on admission -Type unknown at this time -Previously has had normal ejection fraction -Cycle cardiac enzymes -Check echocardiogram -Patient is n.p.o. for now but when p.o. diet is started with limit fluids and sodium restricted -Lasix 40 mg 3 times daily--> first dose given the emergency department Leukocytosis -Suspect reactive as differential is unremarkable and Pro-Kelvin is normal -Monitor clinically with repeat in a.m. Lactic acidosis -Most likely related to hypoxemia -Cycle per protocol Hyperglycemia -No documented history of diabetes -Check hemoglobin A1c -SSI moderate dose -Accu-Cheks as ordered History of dysphagia -PEG removed in August [address] Elizabeth -Speech therapy ordered for evaluation with history -Okay for meds Seizure disorder -Continue Keppra and phenytoin GERD -Continue Protonix History of DVT -2016 -Off anticoagulation History of TIO -Unclear at this time if patient is compliant at baseline History of stroke/TIA -Continue aspirin -PT/OT/speech therapy consultation Hyperlipidemia -Continue home atorvastatin Depression/anxiety -Continue home medications Insomnia -Hold home Ambien with current respiratory status History of breast cancer -Carcinoma in situ -In remission History of alcohol abuse -Denies any current use History of tobacco abuse -In remission -Recommend ongoing cessation DVT prophylaxis -Lovenox 40 mg daily CODE STATUS -Full code Charges/Coding Visit Charges Inpatient E&M: 37035 Init Hosp L3
[2022-10-09 03:08] LABS: Troponin-I HS 26 pg/mL (3.0-54.0)
[2022-10-09 04:07] LABS: Reflex Lactate? Y
--- NOTE | 2022-10-09 05:33 | PCM.RX.CS ---
Consult Pharmacy has been consulted to manage selected antiobiotic: Vancomycin Type of Consult: New start Microbiology: Microbiology 10/08/22 23:20 Nasal Secretion SARS-CoV-2 & FLU Antigen (Rapid) - Final Goal Trough: 15-20 mcg/mL Pharmacy Plan for Drug Dosing: Pharmacy Service will continue to monitor and adjust dosing as required. Medications Vancomycin HCl (Vancomycin) 1,000 mg in 200 mls @ 200 mls/hr IV Q24H WALTER Discontinued Medications Vancomycin HCl 750 mg/ Sodium (Chloride) 265 mls @ 250 mls/hr IV X1 ONE Stop: 10/09/22 01:07 Last Admin: 10/09/22 01:45 Dose: Infused Follow-Up Labs: Trough Vancomycin Labs to be done on [date and time ordered]: 10/10 @ 9045
[2022-10-09 05:51] LABS: ALB/GLOB Ratio 0.9 RATIO (0.9-2.4); AST(SGOT) 47 U/L (15-37); Alanine Aminotransfer ALT/SGPT 73 U/L (13-56); Albumin, Serum 3.3 g/dL (3.2-5.0); Alkaline Phosphatase 255 U/L (45-117); Anion Gap 6 (5-15); BUN 17 mg/dL (7-18); BUN/Creat Ratio 18.5 RATIO (10-20); Calcium,Total 8.6 mg/dL (8.5-10.1); Chloride 102 mmol/L (98-107); Creatinine, Serum 0.92 mg/dL (0.55-1.02); EST Glomerular Filtration Rate 65 mL/min (>60); Est Glom Filt Rate - Afr Amer 78 mL/min (>60); Estimated Creatinine Clearance 49.09 ml/min; Globulin 3.8 g/dL (2.2-4.2); Glucose 145 mg/dL (74-106); Magnesium 1.9 mg/dL (1.6-2.6); Potassium 4.1 mmol/L (3.5-5.1); Protein, Total 7.1 g/dL (6.4-8.2); Sodium Level 139 mmol/L (136-145); Thyroid Stim Hormone (TSH) 1.08 uIU/mL (0.358-3.74); Troponin-I HS 74 pg/mL (3.0-54.0)
[2022-10-09 05:57] LABS: Lactic Acid 0.8 mmol/L (0.4-1.9)
[2022-10-09] MEDS: 0.9% Saline Lock 10 ML Syringe IV (06:17)
[2022-10-09] MEDS: Phenytoin Na 100 MG/4 ML UDC PO ×3 (06:17→21:40)
[2022-10-09] MEDS: Ipratropium/Albuterol Sulfate 3 ML AMPUL.NEB INHALATION ×5 (06:53→23:25)
[2022-10-09 06:59] LABS: Absolute Lymphocyte Count 0.31 X10^3/uL (0.83-4.51); Absolute Neutrophil Count 11.5 X10^3/uL (2.0-7.7); Basophil# 0.03 X10^3/uL; Basophil% 0.2 % (0-1); Hematocrit 42.2 % (37-47); Hemoglobin 12.4 g/dL (12.0-15.0); Lymphocyte # 0.31 X10^3/ul (0.83-4.51); Lymphocyte % 2.5 % (19-41); Mean Corp Hgb Conc 29.4 g/dL (32-36); Mean Corpuscular Hgb 29.2 pg (27.0-32.0); Mean Corpuscular Volume 99.3 fL (81-99); Mean Platelet Vol. 10.4 fl (6.2-12.0); Monocyte# 0.26 X10^3/uL; Monocyte% 2.1 % (0-10); NRBC Flagged by Analyzer 0 % (0-5); Neutrophil % 94.5 % (47-70); POSITIVE DIFFERENTIAL YES; Platelet Count 167 K/mm3 (150-450); RBC Distribution Width CV 13.8 % (11.6-14.6); RBC Distribution Width SD 50.1 fl (35.1-43.9); Red Blood Count 4.25 M/mm3 (4.2-5.4); White Blood Count 12.2 K/mm3 (4.4-11.0)
[2022-10-09 07:08] LABS: Differential Indicated SCAN CRITERIA MET; Phosphorus 3.2 mg/dL (2.5-4.9)
--- NOTE | 2022-10-09 07:47 | EX.PCM.CONCC ---
Assessment & Plan Assessment/Plan (1) Acute on chronic respiratory failure with hypoxia: PLAN: This looks multifactorial, she has a baseline of COPD and CHF, probably aspirated with a new right lower lobe infiltrate, had CHF exacerbation and mild type II non-STEMI with elevated troponin. She has improved after initial critical care management with BiPAP ventilation, diuresis, empiric antibiotics. - Titrate FiO2 to keep saturation greater than 92 due to heart disease - Diuresis continue as needed, monitor renal function which is currently normal - Strict n.p.o. to avoid aspiration(see below) (2) Aspiration pneumonia due to gastric secretions: PLAN: See this patient's extremely abnormal swallowing study from July 2022. They recommended strict n.p.o. and all nutrition and hydration via PEG. - Consult GI for PEG - Strict n.p.o. - Head of bed 30 degrees; it is noted that the patient has constant silent aspiration. (3) Acute decompensated heart failure: PLAN: Likely due to type II STEMI while hypoxic prior to admission. Troponin was initially normal but increased, consistent with ischemia just prior to admission. The patient did complain this morning in retrospect of some chest discomfort around the time she came in. (4) Physical debility: PLAN: PT OT Speech therapy (5) History of non-ST elevation myocardial infarction (NSTEMI): PLAN: Small NSTEMI this admission also. Routine management, - Maintain SPO2 greater than 92% at all times. (6) Hemorrhagic cerebrovascular accident (CVA): PLAN: More than 2 years ago, stable, no new focal deficits (7) TIO (obstructive sleep apnea): PLAN: Patient had a trilogy at home, will ask respiratory to research this further to find out what her home ventilator management is currently. PLAN: Plan Critical care time spent with patient at bedside, review of documentation, lab results, radiology and other test results, discussion with colleagues and ancillary staff, clinical management of patient, and updating family if applicable, was 45 minutes. This time does not include any procedures, if performed. [place] 20791. HPI Consult Data Date of Consult: 10/09/22 HPI Narrative Reason for Consultation: 66-year-old woman admitted with acute CHF/hypoxic respiratory failure HPI Narrative: MARCO MAY, is a 66 F who is well-known to [facility] with recurrent admissions for acute respiratory failure, tracheostomy decannulation Jul 2022, and altered mental status due to some combination of CHF, respiratory failure and unintentional prescription narcotic overuse. The patient is drowsy and unable to give a history, which is therefore from the chart and discussion with colleagues who know her well. She arrived in the ER and hypoxic respiratory failure, was placed on BiPAP and O2 with immediate improvement in oxygenation.. She was determined to have congestive heart failure exacerbation, received Lasix with good effect, and rapidly improved, she is now weaned off BiPAP on nasal O2 with stable saturations and vital signs. BNP was 1010, troponins negative initially, increased to 74, lactate 3.0 initially, decreased to normal at 0.8. White count mildly elevated. Blood pressure elevated at 145/121 at 7 AM. She stated she had chest discomfort, usually does not have chest discomfort but could not elaborate further. No fevers chills sweats nausea vomiting. Past medical history includes recurrent CHF, UTI, narcotic overuse unintentional, chronic severe aspiration, hyperglycemia, COPD with frequent exacerbations, dysphagia, hyperlipidemia, encephalopathy, frequent frequent falls, hypertension generalized weakness. She has history of NSTEMI and February 2017, Takotsubo cardiomyopathy 06/17/2021, TIA in 420, CVA February 2017, sleep apnea. In the past, she has had a trilogy home ventilator which was returned, and apparently began to use her 's BiPAP with his larger facemask that did not fit. A summary of her history last admission from [employer]: The patient is a 66 y/o F w/ PMHx: RLS, Hx EtOH Abuse, Anxiety and Depression, COPD with chronic respiratory failure with hypoxic and hypercapnia (2L NC), Chronic anemia, Hx Takotsubo cardiomyopathy, Chronic Systolic CHF, Hx CVA w/ most recent 01/2022 Hemorrhagic CVA requiring transfer to [facility] and surgical intervention at that time, Hx VTE, TIO, Former tobacco use who presented to the [facility] ED on 06/29/22 with history of increased confusion and forgetfulness the day prior, less responsiveness, and difficulty maintaining appropriate oxygenation. Pt admitted for management of respiratory failure and encephalopathy. She was intubated 06/30/2022 and extubated 07/02/22. 07/03/2022 pt re-intubated and trach placed 07/12/2022. Pt taken off mechanical ventilation on 07/13/2022. Pt tolerated 20 trials of ice/thin water via tsp, cup, and straw, as well as 5 tsp of applesauce with [employer] on 07/17/2021 and was recommended for MBSS to assess swallow function, concern for silent aspiration, and consider the patient for advancement as appropriate. FORMERLY [facility], [facility]–1983 Medical History (Updated 10/09/22 @ 08:[address] Omid Wahl MD) Alcohol abuse Anxiety Anxiety and depression Aspiration pneumonia due to gastric secretions Benign neoplasm of colon Carcinoma in situ of breast Chronic anemia Chronic systolic (congestive) heart failure CO2 narcosis Congestive heart failure (CHF) COPD (chronic obstructive pulmonary disease) Daytime hypersomnia Essential (primary) hypertension Fall GERD (gastroesophageal reflux disease) Head concussion Hemorrhagic cerebrovascular accident (CVA) (02/09/17) History of DVT of lower extremity (02/11/17) History of non-ST elevation myocardial infarction (NSTEMI) (02/03/17) Hypercarbia Hyperlipidemia Insomnia Ischemic cerebrovascular accident (CVA) (02/06/17) Non-ischemic cardiomyopathy Non-rheumatic mitral regurgitation TIO (obstructive sleep apnea) Respiratory insufficiency Secondary pulmonary arterial hypertension Stroke Takotsubo cardiomyopathy (06/17/21) TIA (transient ischemic attack) (10/25/19) Weakness due to old stroke Home Medications aspirin 81 mg tablet 81 mg PO DAILY heart health 11/03/20 [History Last Taken Unknown] cholecalciferol (vitamin D3) 25 mcg (1,000 unit) tablet (Vitamin D3) 25 mcg PO DAILY supplement 11/03/20 [History Last Taken Unknown] folic acid 1 mg tablet 1 mg PO DAILY supplement 11/03/20 [History Last Taken Unknown] pantoprazole 40 mg tablet,delayed release (Protonix) 40 mg PO DAILY GERD 11/03/20 [History Last Taken Unknown] albuterol sulfate 90 mcg/actuation aerosol inhaler (Ventolin HFA) 2 puff inhalation Q4H PRN shortness of breath or wheezing #18 grams 12/23/20 [Rx Last Taken Unknown] albuterol sulfate 1.25 mg/3 mL solution for nebulization 1.25 mg inhalation Q4H PRN Shortness Of Breath Or Wheezing 06/15/21 [History Last Taken Unknown] mecobalamin (vitamin B12) 5,000 mcg disintegrating tablet 5,000 mcg PO DAILY 07/07/21 [History Last Taken Unknown] acetaminophen 650 mg/20.3 mL oral solution 650 mg (20.3 mL) G-tube Q4H PRN PRN Pain 1-10 Or Fever #0 mL 07/25/22 [Rx Last Taken Unknown] albuterol sulfate 2.5 mg/3 mL (0.083 %) solution for nebulization 2.5 mg (3 mL) inhalation Q2H PRN PRN Dyspnea, wheezing #0 mL 07/25/22 [Rx Last Taken Unknown] buspirone 5 mg tablet 10 mg G-tube BID #0 tabs 07/25/22 [Rx Last Taken Unknown] famotidine 20 mg tablet 20 mg G-tube BID #0 tabs 07/25/22 [Rx Last Taken Unknown] furosemide 10 mg/mL oral solution 20 mg (2 mL) G-tube BIDLX #0 mL 07/25/22 [Rx Last Taken Unknown] ipratropium 0.5 mg-albuterol 3 mg (2.5 mg base)/3 mL nebulization soln 3 ml inhalation Q6HWA.RT #0 mL 07/25/22 [Rx Last Taken Unknown] lactose-reduced food with fiber 0.06 gram-1.5 kcal/mL oral liquid (Jevity 1.5 Kelvin) 240 ml G-tube 0900,1200,1600,1900 #0 mL 07/25/22 [Rx Last Taken Unknown] levetiracetam 100 mg/mL oral solution 500 mg (5 mL) G-tube BID #0 mL 07/25/22 [Rx Last Taken Unknown] oxycodone 5 mg tablet 5 mg G-tube Q6H PRN PRN Pain Score 6-10 3 days #0 tabs 07/25/22 [Rx Last Taken Unknown] phenytoin 100 mg/4 mL oral suspension 100 mg (4 mL) G-tube Q8 30 days #0 mL 07/25/22 [Rx Last Taken Unknown] potassium chloride 20 mEq/15 mL oral liquid 40 meq (30 mL) G-tube BID #0 mL 07/25/22 [Rx Last Taken Unknown] quetiapine 100 mg tablet 150 mg G-tube BID #0 tabs 07/25/22 [Rx Last Taken Unknown] sennosides 8.6 mg-docusate sodium 50 mg tablet (Stool Softener-Stimulant Laxative) 2 tab G-tube BID #0 tabs 07/25/22 [Rx Last Taken Unknown] zolpidem 5 mg tablet (Ambien) 5 mg PO QHS PRN insomnia 30 days #30 tabs 07/25/22 [Rx Last Taken Unknown] aripiprazole 2 mg tablet (Abilify) 2 mg PO DAILY 08/25/22 [History Last Taken Unknown] atorvastatin 40 mg tablet 40 mg PO QHS 08/25/22 [History Last Taken Unknown] metoprolol succinate 25 mg tablet,extended release 24 hr 25 mg PO DAILY 08/25/22 [History Last Taken Unknown] amoxicillin 500 mg-potassium clavulanate 125 mg tablet 1 tab PO Q12H #14 tabs 08/28/22 [Rx Last Taken Unknown] fluticasone fur. 100 mcg-umeclid 62.5 mcg-vilant 25 mcg inhalat.powder 1 inh inhalation DAILY COPD #60 ea 08/28/22 [Rx Last Taken Unknown] Allergy/AdvReac Type Severity Reaction Status Date / Time tetanus and diphtheria Allergy Hives Verified 06/29/22 22:19 toxoids [tetanus & diphtheria toxoids] Family History Sister Cancer lung Father Cancer lung Mother Cancer lung Surgical History H/O: section History of bilateral cataract extraction History of cholecystectomy History of left heart catheterization (06/17/21) History of lumpectomy History of tracheostomy Hx of appendectomy S/P percutaneous endoscopic gastrostomy (PEG) tube placement Social History household members: none Smoking Status: Former smoker how long ago did patient quit smokin, 1pk/day second hand exposure: Yes alcohol intake: former substance use type: does not use what type of physical activity do you participate in: walking frequency: daily ROS ROS Narrative Unable due to lethargy and altered mental status. Physical Exam Narrative Well-developed chronically ill and weak appearing woman in no respiratory distress on nasal cannula. BMI 21. HEENT normocephalic atraumatic extraoculars are intact, anicteric, sclera noninjected. No nasal secretions, nasal cannula in place. Opens eyes to commands, follows commands. Mouth has moist mucous membranes, no facial abrasions at mask sites Neck is supple with no JVD thyromegaly or mass Lungs are clear bilaterally with no wheezes rales or rhonchi. The patient did not take a deep breath during the exam. Heart regular S1-S2 with no murmurs rubs or gallops Abdomen is soft nontender, positive bowel sounds Extremities have no clubbing cyanosis or edema, peripheral IVs are in place without erythema, extravasation or purulence. Neuro is diffusely weak, grossly nonfocal, follows commands bilaterally. Tracks well, cranial nerves grossly normal. Lab / Micro Data Attestation: I reviewed the patient's lab results. Lab results narrative: Chest x-ray 10/08/2022 was personally reviewed and shows bibasilar infiltrates more on the right, small effusions. Her trach was removed compared to July 2022. CT of the chest this morning showed no evidence of acute pulmonary embolism: Motion artifact. No pulmonary emboli identified. Airspace opacities bilaterally concerning for infection and/or aspiration. Emphysematous changes. Small bilateral pleural effusions. Electronically Signed: Abdon Bruner MD at 4:16 EDT Swallowing study 07/2022 after trache decannulation recommended strict NPO with all nutrition and hydration via PEG:: Impression: Of note, pt became tachycardic and hypotensive within minutes following the study. security attendant, Coco, attended to the patient following the study and took the patient back to her room. The oral phase is primarily marked by.... -Decreased bolus control with premature posterior loss of >1/2 of pudding bolus to the posterior surface of the epiglottis prior to swallow onset. Premature loss of <1/2 of thin liquid trials. -Delayed tongue motion for A-P transport. -DID NOT TEST COOKIE due to pt appearing increasingly fatigued and [employer] concern for choking due to poor pharyngeal clearance w/ pudding trial. The pharyngeal phase is primarily marked by... -Mild-moderate delayed initiation of swallow. -Decreased airway closure due to decreased laryngeal elevation, minimal anterior hyoid excursion, and partial epiglottic inversion. -Moderate-severe pharyngeal residues due to severely decreased tongue base retraction, minimal pharyngeal stripping wave, and decreased UES opening. -SILENT aspiration of thin via straw and tsp, nectar by tsp. Trace post prandial aspiration of thin by tsp. The esophageal phase is primarily marked by... -Minimal esophageal retention of pudding in mid and lower esophagus with minimal retrograde flow remaining well below the upper esophageal sphincter (UES). - Recommendations Diet:?NPO - Strict NPO - recommend all nutrition/hydration be met via PEG Recommend Repeat Modified Barium Swallow:?Yes Need for Skilled Speech Therapy Services:?Yes Comment: Will recommend the patient for intensive dysphagia therapy to address severe deficits in oropharyngeal swallow function. Will recommend the patient for oropharyngeal strengthening to improve lingual control, tongue base retraction, laryngeal elevation, hyoid excursion, and pharyngeal contraction (Effortful, Lupe, CTAR, lingual resistance exercises). Will recommend trials of thin water (ice chips or thin water via tsp) with [employer] ONLY at this time. Result Diagrams: 10/09/22 05:00 10/09/22 05:00 Labs: Laboratory Results - last 24 hr 10/08/22 23:15: WBC 21.0 H, RBC 4.12 L, Hgb 11.8 L, Hct 39.4, MCV 95.6, MCH 28.6, MCHC 29.9 L, RDW Std Deviation 47.9 H, RDW Coeff of Deonte 13.5, Plt Count 276, MPV 10.4, Immature Gran % (Auto) 1.300 H, Neut % (Auto) 48.5, Lymph % (Auto) 39.7, [place] % (Auto) 8.6, Eos % (Auto) 1.3, Baso % (Auto) 0.6, Absolute Neuts (auto) 10.2 H, Absolute Lymphs (auto) 8.35 H, Nucleated RBC % 0, Diff Path Review May foll, Atypical Lymphocytes 1+ 10/08/22 23:15: Sodium 143, Potassium 5.0, Chloride 108 H, Carbon Dioxide 27.0, Anion Gap 8, BUN 18, Creatinine 0.94, Estim Creat Clear Calc 48.04, Est GFR (MDRD) Af Amer 76, Est GFR (MDRD) Non-Af 63, BUN/Creatinine Ratio 19.1, Glucose 229 H, Calcium 8.8, Magnesium 2.0 10/08/22 23:15: B-Natriuretic Peptide 1010.6 H 10/08/22 23:15: Procalcitonin < 0.01 10/08/22 23:15: Lactic Acid 3.0 H* 10/08/22 23:15: Troponin I High Sens 26 10/09/22 00:00: Urine Color Yellow, Urine Clarity Sl. Cloudy, Urine pH 6.0, Ur Specific [place] 1.020, Urine Protein 500 H, Urine Glucose (UA) 100 H, Urine Ketones 5 H, Urine Occult Blood 50 H, Urine Nitrite Negative, Urine Bilirubin Negative, Urine Urobilinogen 1 H, Ur Leukocyte Esterase Negative, Urine RBC 0-5 SEEN, Urine WBC 5-10 SEEN, Ur Squamous Epith Cells 0 SEEN, Amorphous Sediment 2+, Urine Bacteria 2+, Coarse Granular Casts 0-5 SEEN, Urine Mucus 0 SEEN 10/09/22 05:00: Hemoglobin A1c 5.0 10/09/22 05:00: Troponin I High Sens Cancelled 10/09/22 05:00: Sodium 139, Potassium 4.1, Chloride 102, Carbon Dioxide 31.0, Anion Gap 6, BUN 17, Creatinine 0.92, Estim Creat Clear Calc 49.09, Est GFR (MDRD) Af Amer 78, Est GFR (MDRD) Non-Af 65, BUN/Creatinine Ratio 18.5, Glucose 145 H, Calcium 8.6, Magnesium 1.9, Total Bilirubin 0.50, AST 47 H, ALT 73 H, Alkaline Phosphatase 255 H, Troponin I High Sens 74 H, Total Protein 7.1, Albumin 3.3, Globulin 3.8, Albumin/Globulin Ratio 0.9, TSH 1.08 10/09/22 05:00: Lactic Acid 0.8 10/09/22 05:00: WBC 12.2 H, RBC 4.25, Hgb 12.4, Hct 42.2, MCV 99.3 H, MCH 29.2, MCHC 29.4 L, RDW Std Deviation 50.1 H, RDW Coeff of Deonte 13.8, Plt Count 167, MPV 10.4, Immature Gran % (Auto) 0.700, Neut % (Auto) 94.5 H, Lymph % (Auto) 2.5 L, [place] % (Auto) 2.1, Eos % (Auto) 0.0, Baso % (Auto) 0.2, Absolute Neuts (auto) 11.5 H, Absolute Lymphs (auto) 0.31 L, Nucleated RBC % 0 10/09/22 05:00: Phosphorus 3.2 Micro: Microbiology 10/08/22 23:20 Nasal Secretion SARS-CoV-2 & FLU Antigen (Rapid) - Final Radiology Impression Chest X-Ray 10/08/22 23:15 IMPRESSION: Opacities in the lower lungs bilaterally concerning for infection or aspiration. Electronically Signed: Abdon Bruner MD at 0:00 EDT , Chest CTA 10/09/22 00:59 IMPRESSION: undefined Charges/Coding Procedures Hospitalists Procedures: [id number] Critial Care 1st Hr
--- NOTE | 2022-10-09 10:30 | CASEMGMT ---
FINESSE LALA Assessment: Face to Face with pt for initial transition planning/care coordination assessment. FINESSE LALA introduced self and role at [facility], pt voices understanding and consents to assessment. Pt is A/O x4 and answers all questions appropriately at this time. Pt lying in bed in no distress with brother at bedside. Care providers, pharmacy, and demographics verified/updated. Admitting Dx: acute on chronic hypoxic and hypercapnic PCP:Miriam Specialists:dm Duarte Preferred Pharmacy: [facility] Insurance: [employer] Prescription Benefit: yes LNOK: Oscar Frank, sig other; Ameena Zhang, dtr Living Arrangements: Pt lives with dtr in a two story home with 3 steps to enter with a rail. Pt reports she is I in ADL's and denies concerns at home. Pt states ZAIRA has bought her house and the whole row of houses and has to move. This is why she is living with her dtr. Transportation: Pt drives self and denies concerns with transportation. DME/HHC/SNF: Pt has trilogy and oxygen at home at 2L per report. Will verify with [employer]. Pt reports she has portability and a pox. Pt also has a shower chair, nebulizer and FWW. She doesn't currently use the FWW. Pt has had [facility] in the past and been to [place]. Pt states no concerns with going home at time of dc. She denies any homegoing needs. Pt states no further concerns/needs. CM to follow therapy. Advised pt to ask CM if any further question/concerns/needs arise, voices understanding. Pt Goal: Home Plan: Home, follow therapy and oxygen needs.
[2022-10-09 11:35] LABS: Bedside Glucose 153 mg/dL (74-106)
[2022-10-09 12:08] LABS: Troponin-I HS 54 pg/mL (3.0-54.0)
--- NOTE | 2022-10-09 12:57 | ST.MBS ---
Modified Barium Swallow - Patient Information Study Date: 10/09/22 Study Time: 13:00 Direct Billable Minutes: 77 Total Minutes procedure & reportin Diagnosis: Aspiration PNA d/t gastric secretions (J69.0), COPD (J44.1) Referring Physician: Tex Agee Reason for Referral: Objectively assess swallow function, risk for aspiration, and determine recommendations for least restrictive diet textures and compensatory strategies to improve safety of swallow. Medical History: The patient is a 66- year-old with a history of alcohol abuse, anxiety, carcinoma in situ of breast, chronic anemia, CHF, CO2 narcosis, COPD, Essential (primary) hypertension, GERD, Hemorrhagic cerebrovascular accident (CVA) (02/09/17), Hx of DVT of lower extremity (02/11/17), hx of non-ST elevation myocardial infarction (NSTEMI) (02/03/17), Ischemic cerebrovascular accident (CVA) (02/06/17), Non-rheumatic mitral regurgitation, respiratory insufficiency, secondary pulmonary arterial hypertension, Takotsubo cardiomyopathy (06/17/21), TIA (transient ischemic attack) (10/25/19), Hx CVA w/ most recent 01/2022 Hemorrhagic CVA requiring transfer to [facility] and surgical intervention at that time, and hx of intubation on 06/30/22 and extubated 07/02/22. Patient had previous MBSS with previous admission on 07/17/22 with silent aspiration on liquids and was recommended to be made NPO. Patient discharged on 07/25/22 to SNF, then eventually to home and was since on thin liquids, and regular textures. Patient presented to the emergency department at [facility] early in the morning on 10/08/2022 complaining of shortness of breath. Her last hospitalization was at [facility] in August. She did require a trach and PEG placement during her last hospitalization at [facility]; however, both have since been removed. The patient had been doing well up until day of presentation during which she developed increased shortness of breath.?Patient's daughter reported she was slightly confused, and her daughter was concerned that this was related to hypoxia. They have seen her become confused with hypoxemia previously. EMS was called secondary to her oxygen saturation being at 75% on her baseline oxygen. Work-up in ED included chest x-ray with opacities in the bilateral lower lungs and central vascular congestion, EKG sinus tachycardia with normal intervals and no ST-T wave changes concerning for acute ischemia. Patient referred for speech evaluation on 10/09/22 due to swallowing difficulty. Due to past history of silent aspiration, patient was recommended for MBSS on 10/09/22, prior to diet advancement. Current Diet Ordered: NPO Dentition: Missing Teeth Mental Status: WNL - Able to follow simple commands for MBSS without difficulty Respiratory Status: Oxygenating on 2L/M nasal cannula - Penetration-Aspiration Scale Penetration-Aspiration Scale: OBJECTIVE ASSESSMENT OF SWALLOW FUNCTION (QUANTITATIVE ? PER TRIAL): PENETRATION / ASPIRATION SCALE (ARAIZA): 1 = does not enter airway 2 = enters airway/above vocal folds/ejected 3 = enters airway/above vocal folds/not ejected 4 = enters airway/contacts vocal folds/ejected 5 = enters airway/contacts vocal folds/not ejected 6 = enters airway/below vocal folds/ejected 7 = enters airway/below vocal folds/not ejected despite effort 8 = enters airway/below vocal folds/no effort VIDEOFLOROSCOPIC SCALE SCORE (ARAIZA): Grade I = aspiration of material that has penetrated into the laryngeal vestibule, intact cough reflex Grade II = aspiration < 10 % of the bolus, intact cough reflex Grade III = aspiration of < 10 % of the bolus, reduced cough reflex or aspiration of > 10 % of the bolus, intact cough reflex Grade IV = aspiration of > 10 % of the bolus, reduced cough reflex - Penetration-Aspiration Scale Score Thin Liquid via teaspoon Result: 1= does not enter airway Thin Liquid via teaspoon Trial 2 Result: 2= enter airway/above vocal folds/ejected Thin Liquid via small single sip from cup Result: 1= does not enter airway Thin Liquid via sequential sips from cup Result: 3= enters airways/above vocal folds/not ejected [place] Thick Liquid via small single sip from cup Result: 1= does not enter airway Pudding via teaspoon with esophageal screen Result: 1= does not enter airway 1/2 Cookie Result: 1= does not enter airway Thin Liquid via single sip from straw with esophageal screen Result: 1= does not enter airway - Oral Phase Labial Seal: Interlabial escape, no progression to anterior lip Tongue Control During Bolus Hold: Posterior escape of greater than half of bolus Bolus Preparation/Mastication: Slow prolonged chewing/mashing with complete recollection Bolus Transport/Lingual Motion: Repetitive/disorganized tongue motion - pudding Oral Residue: Residue collection on oral structures - min-mild cookie residue after the swallow - Pharyngeal Phase Initiation of Pharyngeal Swallow: Bolus head at posterior laryngeal surgace of epiglottis Soft Palate Elevation: No bolus between soft palate and pharyngeal wall Laryngeal Elevation: Partial superior movement thyroid cart/partial apprx aryt-epig petiole Anterior Hyoid Excursion: Partial anterior movement - little to no anterior hyoid excursion Epiglottic Movement: Partial inversion Laryngeal Vestibule Closure at Height of Swallow: Incomplete; narrow column of air/contrast in laryngeal vestibule Pharyngeal Stripping Wave: Present - diminished Pharyngoesophageal Segment Opening: Parital distension and partial duration; parital obstruction of flow Tongue Base Retraction: Wide column of contrast between tongue base & post. pharyngeal wall Pharyngeal Residue: Collection of residue within or on pharyngeal structures - Esophageal Phase Esophageal Clearance: Esophageal retention w/ retrograde flow below pharyngoesophageal seg. - Diagnosis/Impression Diagnosis: Mild oropharyngeal phase dysphagia (R13.12) Impression: The oral phase is primarily marked by... -Decreased bolus control with >1/2 of the bolus spilling posteriorly to the pyriforms prior to swallow onset. -Lingual pumping for A-P transport, most notable with pudding trial. -Prolonged, but adequate mastication of cookie trial. The pharyngeal phase is primarily marked by... -Mildly decreased airway closure during the swallow due to little to no anterior hyoid excursion, partial epiglottic inversion, and decreased laryngeal elevation. -Moderately decreased tongue base retraction, mildly decreased UES opening/duration, and diminished pharyngeal stripping wave with resulting mild-moderate pharyngeal residues after the swallow. -Trace laryngeal penetration of thin by tsp which fully ejected from the laryngeal vestibule after the swallow. Increased laryngeal penetration of thin by sequential cup sips which did not fully eject from the laryngeal vestibule after the swallow. No aspiration was observed during the study. The esophageal phase is primarily marked by... Esophageal retention of pudding throughout mid and lower esophagus w/ min retrograde flow. Thin liquid wash effectively cleared a majority of the retention. Will recommend GI consult as the patient has diagnosis of aspiration PNA due to gastric secretions and due to extent of esophageal retention of pudding. - Recommendations Diet: Regular Textures, Thin Liquids Compensatory Strategies: Small Bites, Small Sips, Slow Rate - sips one at a time, Alternate bites/solids and sips/liquids - 1:1 ratio, Sitting upright, Remain sitting upright for 30 minutes after PO intake Supervision: Distant Supervision Recommend Repeat Modified Barium Swallow: TBD Need for Skilled Speech Therapy Services: Yes Comment: Will recommend the patient for continued dysphagia therapy to address mild deficits in oropharyngeal swallow function. Will recommend the patient for oropharyngeal strengthening to improve lingual control, laryngeal elevation, hyoid excursion, pharyngeal contraction, and tongue base retraction (lingual resistance exercises, CTAR, Lupe, Effortful, [place]). The patient would benefit from thorough education regarding diet recommendations and recommended compensatory strategies. Recommended Referrals: GI Consult - Esophageal retention of pudding throughout mid and lower esophagus w/ min retrograde flow. Education Completed: 1. Described result of evaluation., 2. Pt understands evaluation & agrees with goals and treatment plan., 7. Pt requires further education on strategies & risks. - Status Active ST Patient: Active - Contact Information [facility] Speech Therapy:: Marni Maki M.A. [facility] Speech-Language Pathologist [facility] [id number] [place] [address] [email or web address] [phone] 10/09/22 14:39
[2022-10-09 13:02] LABS: Pathologist Review Reviewed
[2022-10-09] MEDS: Aspirin 81 MG TAB.CHEW PO (13:43)
[2022-10-09] MEDS: busPIRone 5 MG Tablet 10 MG PO ×2 (13:44→21:39)
[2022-10-09] MEDS: QUEtiapine 100 MG Tablet 150 MG PO (13:44)
[2022-10-09] MEDS: Cholecalciferol (VIT D3) 25 MCG TABLET (1,000 UNITS) PO (13:44)
[2022-10-09] MEDS: levETIRAcetam Oral Solution 500 MG/5 ML PO ×2 (13:45→21:39)
[2022-10-09] MEDS: Metoprolol(XL)Succ 25 MG Tablet PO (13:46)
--- NOTE | 2022-10-09 17:28 | PCM.PN.HOSP ---
Reason for Visit Reason for Visit: Diagnoses Elevated white blood cell count, unspecified (10/09/22) Acidosis, unspecified (10/09/22) Obstructive sleep apnea (adult) (pediatric) (10/09/22) Old myocardial infarction (10/09/22) Heart failure, unspecified (10/09/22) Nontraumatic intracerebral hemorrhage, unspecified (10/09/22) Chronic obstructive pulmonary disease with (acute) exacerbation (10/09/22) Pneumonitis due to inhalation of food and vomit (10/09/22) Acute and chronic respiratory failure with hypoxia (10/09/22) Acute and chronic respiratory failure with hypercapnia (10/09/22) Other malaise (10/09/22) Hyperglycemia, unspecified (10/09/22) Follow-up for acute on chronic hypoxic and hypercarbic respiratory failure secondary to COPD exacerbation and predominant right lower lobe community-acquired pneumonia/aspiration pneumonia. Decompensated heart failure Hypotension. Objective Data Objective Data Vital Signs: Vital Signs Temp Pulse Resp BP Pulse Ox O2 Del Method O2 Flow Rate 98.2 F 89 19 H 145/121 H 93 Nasal Cannula 2 10/09/22 07:00 10/09/22 07:00 10/09/22 07:00 10/09/22 07:00 10/09/22 07:00 10/09/22 07:00 10/09/22 07:00 FiO2 98 10/09/22 06:55 Oxygen Flow Rate (L/min) 2 Oxygen Delivery Method Nasal Cannula Weight: 119 lb 0.794 oz Body Mass Index (BMI) 21.0 Intake & Output: Intake and Output for Last 24 Hours 10/07/22 10/08/22 10/09/22 23:59 23:59 23:59 Intake Total 315 / 315 Output Total 1400 / 1400 Balance -1085 / -1085 Lab / Micro Data Result Diagrams: 10/09/22 05:00 10/09/22 05:00 Labs: Laboratory Results - last 24 hr 10/08/22 23:15: WBC 21.0 H, RBC 4.12 L, Hgb 11.8 L, Hct 39.4, MCV 95.6, MCH 28.6, MCHC 29.9 L, RDW Std Deviation 47.9 H, RDW Coeff of Deonte 13.5, Plt Count 276, MPV 10.4, Immature Gran % (Auto) 1.300 H, Neut % (Auto) 48.5, Lymph % (Auto) 39.7, [place] % (Auto) 8.6, Eos % (Auto) 1.3, Baso % (Auto) 0.6, Absolute Neuts (auto) 10.2 H, Absolute Lymphs (auto) 8.35 H, Nucleated RBC % 0, Diff Path Review May foll, Atypical Lymphocytes 1+ 10/08/22 23:15: Sodium 143, Potassium 5.0, Chloride 108 H, Carbon Dioxide 27.0, Anion Gap 8, BUN 18, Creatinine 0.94, Estim Creat Clear Calc 48.04, Est GFR (MDRD) Af Amer 76, Est GFR (MDRD) Non-Af 63, BUN/Creatinine Ratio 19.1, Glucose 229 H, Calcium 8.8, Magnesium 2.0 10/08/22 23:15: B-Natriuretic Peptide 1010.6 H 10/08/22 23:15: Procalcitonin < 0.01 10/08/22 23:15: Lactic Acid 3.0 H* 10/08/22 23:15: Troponin I High Sens 26 10/09/22 00:00: Urine Color Yellow, Urine Clarity Sl. Cloudy, Urine pH 6.0, Ur Specific [place] 1.020, Urine Protein 500 H, Urine Glucose (UA) 100 H, Urine Ketones 5 H, Urine Occult Blood 50 H, Urine Nitrite Negative, Urine Bilirubin Negative, Urine Urobilinogen 1 H, Ur Leukocyte Esterase Negative, Urine RBC 0-5 SEEN, Urine WBC 5-10 SEEN, Ur Squamous Epith Cells 0 SEEN, Amorphous Sediment 2+, Urine Bacteria 2+, Coarse Granular Casts 0-5 SEEN, Urine Mucus 0 SEEN 10/09/22 05:00: Hemoglobin A1c 5.0 10/09/22 05:00: Troponin I High Sens Cancelled 10/09/22 05:00: Sodium 139, Potassium 4.1, Chloride 102, Carbon Dioxide 31.0, Anion Gap 6, BUN 17, Creatinine 0.92, Estim Creat Clear Calc 49.09, Est GFR (MDRD) Af Amer 78, Est GFR (MDRD) Non-Af 65, BUN/Creatinine Ratio 18.5, Glucose 145 H, Calcium 8.6, Magnesium 1.9, Total Bilirubin 0.50, AST 47 H, ALT 73 H, Alkaline Phosphatase 255 H, Troponin I High Sens 74 H, Total Protein 7.1, Albumin 3.3, Globulin 3.8, Albumin/Globulin Ratio 0.9, TSH 1.08 10/09/22 05:00: Lactic Acid 0.8 10/09/22 05:00: WBC 12.2 H, RBC 4.25, Hgb 12.4, Hct 42.2, MCV 99.3 H, MCH 29.2, MCHC 29.4 L, RDW Std Deviation 50.1 H, RDW Coeff of Deonte 13.8, Plt Count 167, MPV 10.4, Immature Gran % (Auto) 0.700, Neut % (Auto) 94.5 H, Lymph % (Auto) 2.5 L, [place] % (Auto) 2.1, Eos % (Auto) 0.0, Baso % (Auto) 0.2, Absolute Neuts (auto) 11.5 H, Absolute Lymphs (auto) 0.31 L, Nucleated RBC % 0 10/09/22 05:00: Phosphorus 3.2 Micro: Microbiology 10/08/22 23:20 Nasal Secretion SARS-CoV-2 & FLU Antigen (Rapid) - Final Radiography Diagnostic Testing: Radiology Impression Chest X-Ray 10/08/22 23:15 IMPRESSION: Opacities in the lower lungs bilaterally concerning for infection or aspiration. Electronically Signed: Abdon Bruner MD at 0:00 EDT , Chest CTA 10/09/22 00:59 IMPRESSION: undefined Physical Exam Narrative Patient states he had feeding tube/PEG tube long time ago and does not remember the details. She has a scar in epigastric region. Patient still feels short of breath. Discussed with the liability claims representative Patient BP in the morning was 145/121, systolic 100 but when transferred to PCU her blood pressure dropped systolic 58 therefore was transferred back to ICU Physical exam General: Alert, Oriented x3, Cooperative HEENT: Atraumatic, PERRLA, EOMI, Normocephalic Oral: Oral mucosa moist. No Gingival or Mucosal Lesions/ Ulcerations Neck: Supple, No JVD, Negative Carotid Bruits Lungs: Air entry diminished in bilateral lung bases. Bibasilar expiratory rhonchi present Cardiovascular: Regular rate, Regular Rhythm, Normal S1, Normal S2, No murmurs Abdomen: Bowel Sounds Present, Soft, Non Tender, Non-Distended : No renal angle tenderness. No suprapubic tenderness. Extremities: No edema, Capillary Refill Less than 3 Seconds Skin: No rashes, No breakdown Musculoskeletal: No Tenderness to Palpation of Joints or Extremities. Muscle strength 4+/5 at major joint Neurological: Cranial nerves II-XII grossly intact, DTR 2+/4 and Symmetrical, Neuro grossly intact Psych/Mental Status: Flat affect Assessment & Plan Assessment/Plan (1) Acute on chronic respiratory failure with hypoxia and hypercapnia: (2) Acute decompensated heart failure: (3) COPD with acute exacerbation: (4) Lactic acidosis: (5) Leukocytosis: (6) Hyperglycemia: PLAN: Plan Acute on chronic hypoxic and hypercapnic respiratory failure secondary to acute exacerbation of COPD/decompensated heart failure Patient on 2 L of oxygen in the morning but currently on 4 L of oxygen. Mild tachypneic. Continue BiPAP. Discussed with liability claims representative. Acute decompensated heart failure: Patient was started on Lasix 40 mg IV every 8 hourly and preablation drop blood pressure is systolic 50s to 60s therefore Lasix is on hold. 2D echo done the left ventricular ejection fraction is 55 %. Apical hypokinesis. The left atrium is mildly enlarged. Moderate (2+) eccentric mitral valve insufficiency. Chest x-ray image reviewed shows opacities in both lower lungs with features of congestion and heart failure. First troponin is 74 but second 1 normal. BNP very high. Does not show up trending troponin therefore ACS ruled out. COPD exacerbation: On BiPAP as needed as needed. Recently decannulate tracheostomy. On Solu-Medrol. On a scheduled DuoNeb. Respiratory panel COVID and flu antigen are negative. On Mucinex incentive spirometry NPO. Suspicion of aspiration pneumonia with history of dysphagia: Chest x-ray showed bilateral infiltrates. Patient had PEG tube in the past removed in August [address] Elizabeth. N.p.o. in the morning entolimod with speech therapist. GI is consulted. A1c 5.0. Prediabetes and diabetes mellitus ruled out Seizure disorder -Continue Keppra and phenytoin GERD -Continue Protonix History of DVT -2017 -Off anticoagulation History of TIO -Unclear at this time if patient is compliant at baseline History of stroke/TIA -Continue aspirin -PT/OT/speech therapy consultation Hyperlipidemia -Continue home atorvastatin Depression/anxiety -Continue home medications Insomnia -Hold home Ambien with current respiratory status History of breast cancer -Carcinoma in situ -In remission History of alcohol abuse -Denies any current use History of tobacco abuse -In remission -Recommend ongoing cessation DVT prophylaxis -Lovenox 40 mg daily CODE STATUS -Full code Charges/Coding Procedures [facility]ists Procedures: [facility]
[2022-10-09 18:32] LABS: M R Staph aureus DNA By PCR Negative (Negative); Probe Check PASS; Specimen Processing Control PASS
[2022-10-09 18:35] LABS: Bedside Glucose 185 mg/dL (74-106)
[2022-10-09] MEDS: guaiFENesin 1,200 MG Tablet 1200 MG PO (21:39)
[2022-10-09] MEDS: Atorvastatin Calcium 40 MG Tablet PO (21:40)
[2022-10-09] MEDS: QUEtiapine 25 MG Tablet 50 MG PO (21:40)
--- NOTE | 2022-10-09 23:42 | NURSING ---
Discussed PIV infiltates w/; suggestion of hyaluronic acid for site extravasation d/t levophed in tiisue. Clinical Pharmacology site used and 5mg phentolamine diluted in 10ml NS recommended for SQ tissue treatment; discussed treatment w/ and she is agreeable. Order entered.
[2022-10-10] VITALS (41 sets, daily range): BP systolic 86–131; BP diastolic 38–82; PULSE 55–102; RESP 12–29; TEMP 36.4–36.8; O2SAT 93–100; BMI 20.5
--- NOTE | 2022-10-10 00:15 | RAD_ITS ---
INDICATION: central line EXAMINATION/TECHNIQUE: X-RAY - XR Chest 1 View COMPARISON: None. FINDINGS: LINES/DEVICES: Central venous line is seen on the right side its tip is at the lower part of the superior vena cava. LUNGS: No consolidation, edema or effusion. No pneumothorax. MEDIASTINUM AND CARDIOVASCULAR STRUCTURES: Cardiac silhouette not enlarged. Central airways and mediastinal contour are unremarkable. BONES AND SOFT TISSUES: Unremarkable. RAD/Chest 1 View (Portable) IMPRESSION: Central venous line is seen on the right side its tip is at the lower part of the superior vena cava. Electronically Signed: Peter De Guzman MD at 4:14 EDT ,
[2022-10-10] MEDS: Phentolamine 5 MG Vial IM (00:21)
--- NOTE | 2022-10-10 00:27 | NURSING ---
1ml of Levophed able to be withdrawn from 22gPIV to lateral Rt forearm prior to site discontinuation. Phentolamine 5mg diluted in 10ml NS: administered Sq x6 injections around each of the 2 PIV infiltration sites RAC and RFA for 5ml at each site. Explained to pt reasoning for multiple injections to protect from tissue damage, pt agreeable and tolerated med administration well.
--- NOTE | 2022-10-10 00:33 | NURSING ---
pt's rac iv site infiltrated with levophed running. fluids immediately stopped. levo and zosyn transitioned to rfa site which also quickly infiltrated. dr kuhn notified of pt's need for central line. 0030- TLRIJ inserted by dr kuhn. phentolamine injected SC around the both dc'd iv sites. will monitor pt's skin.
--- NOTE | 2022-10-10 00:42 | PCM.OP.PRO ---
Procedure Report Date of Procedure: 10/10/22 Central Venous Catheter Indication: Hypotension Consent was obtained from: Patient A time-out was completed verifying correct patient, procedure, site, positioning, and special equipment if applicable. The patient was placed in a dependent position appropriate for central line placement based on the vein to be cannulated. The patient's R neck was prepped and draped in a sterile fashion. 1% lidocaine was used to anesthetize the surrounding skin area. A triple-lumen catheter was introduced into the R IJ vein using the Seldinger technique and under ultrasound guidance. The catheter was threaded smoothly over the guidewire and appropriate blood return was obtained. Each lumen of the catheter was evacuated of air and flushed with sterile saline. The catheter was then sutured in place to the skin and a sterile dressing applied. Chest x-ray to confirm appropriate positioning is pending. ULTRASOUND GUIDANCE STATEMENT (Vascular Access): I performed ultrasound image acquisition and interpretation for needle placement during the procedure. The vessel was identified and found to be free of thrombosis by compression technique. A safe point of entry was marked at the skin in an angle for axis was determined. The needle was guided by obtaining free-flowing fluid and by real-time visualization. Procedures Hospitalists Procedures: 94681 US Guide Vascular Access
[2022-10-10] MEDS: Insulin Lispro 100 UNIT/ML INSULN.PEN SC ×4 (01:42→18:06)
[2022-10-10] MEDS: Zolpidem Tartrate 5 MG Tablet PO (01:46)
[2022-10-10] MEDS: Vancomycin IV 1,000 MG/200 ML BAG 200 MG IV (02:02)
[2022-10-10] MEDS: Ipratropium/Albuterol Sulfate 3 ML AMPUL.NEB INHALATION ×6 (02:04→22:27)
[2022-10-10 02:11] LABS: Bedside Glucose 159 mg/dL (74-106)
[2022-10-10 05:10] LABS: Hematocrit 34.1 % (37-47); Hemoglobin 10.9 g/dL (12.0-15.0); Mean Corpuscular Hgb 28.7 pg (27.0-32.0); Mean Corpuscular Volume 89.7 fL (81-99); Mean Platelet Vol. 10.4 fl (6.2-12.0); Platelet Count 233 K/mm3 (150-450); RBC Distribution Width SD 45.5 fl (35.1-43.9); White Blood Count 15.1 K/mm3 (4.4-11.0)
[2022-10-10 05:34] LABS: ALB/GLOB Ratio 0.9 RATIO (0.9-2.4); AST(SGOT) 23 U/L (15-37); Alanine Aminotransfer ALT/SGPT 49 U/L (13-56); Alkaline Phosphatase 181 U/L (45-117); Anion Gap 5 (5-15); BUN 23 mg/dL (7-18); BUN/Creat Ratio 24.8 RATIO (10-20); Calcium,Total 8.7 mg/dL (8.5-10.1); Chloride 99 mmol/L (98-107); Creatinine, Serum 0.93 mg/dL (0.55-1.02); EST Glomerular Filtration Rate 64 mL/min (>60); Est Glom Filt Rate - Afr Amer 78 mL/min (>60); Estimated Creatinine Clearance 48.56 ml/min; Globulin 3.5 g/dL (2.2-4.2); Glucose 188 mg/dL (74-106); Potassium 3.3 mmol/L (3.5-5.1); Protein, Total 6.5 g/dL (6.4-8.2); Sodium Level 140 mmol/L (136-145)
[2022-10-10] MEDS: Phenytoin Na 100 MG/4 ML UDC PO ×3 (05:45→21:43)
[2022-10-10] MEDS: 0.9% Saline Lock 10 ML Syringe IV ×2 (05:45→09:19)
[2022-10-10] MEDS: Aspirin 81 MG TAB.CHEW PO (09:00)
[2022-10-10] MEDS: ARIPiprazole 2 MG Tablet PO (09:17)
[2022-10-10] MEDS: busPIRone 5 MG Tablet 10 MG PO ×2 (09:17→21:43)
[2022-10-10] MEDS: Cholecalciferol (VIT D3) 25 MCG TABLET (1,000 UNITS) PO (09:17)
[2022-10-10] MEDS: QUEtiapine 25 MG Tablet 50 MG PO ×2 (09:19→21:43)
[2022-10-10] MEDS: Enoxaparin 40 MG/0.4 ML Syringe SC (09:20)
[2022-10-10] MEDS: levETIRAcetam Oral Solution 500 MG/5 ML PO ×2 (09:21→21:43)
[2022-10-10] MEDS: Ensure Plus High Protein 120 ML LIQUID PO ×2 (09:30→13:55)
[2022-10-10] MEDS: Acetaminophen 325 MG Tablet 650 MG PO ×2 (10:41→22:31)
[2022-10-10] MEDS: guaiFENesin 1,200 MG Tablet 1200 MG PO ×2 (10:41→21:43)
--- NOTE | 2022-10-10 10:46 | PCM.PN.INT ---
Assessment & Plan Assessment/Plan (1) Aspiration pneumonia due to gastric secretions: PLAN: Patient with markedly abnormal swallowing study, strict n.p.o. previously recommended by speech, PEG tube recommended, patient refused repeatedly. She is back with another right lower lobe aspiration pneumonia with acute respiratory failure. - I discussed the PEG tube again with the patient, with her nurse present. She refused again. She wants to be able to eat food. - Continue to support - White count is beginning to trend down, remains in septic shock on Levophed of 5 mcg/min, weaning today. 2 saline boluses given, somewhat fluid responsive. - Coag negative staph in 1 out of 2 blood cultures. Possibly contaminant. We will stop vancomycin in the morning if she remains stable with continuing decrease in her white count and trended temperatures. (2) Acute on chronic respiratory failure with hypoxia: PLAN: - Stable on 2 L of O2, treating exacerbations of COPD and CHF. - Continue nocturnal AVAPS at settings of rate 12 tidal volume 450 PEEP 840%. Patient is wearing it only 3 hours, has been encouraged to wear it all night every night but she will not. (3) Urinary tract infection: PLAN: Covered with Zosyn. (4) COPD with acute exacerbation: PLAN: See meds and orders. (5) Acute decompensated heart failure: PLAN: Improved, see meds and orders. BUN increased slightly, perhaps a little over diuresed. Fluid boluses given, follow BUN. - Follow electrolytes supplement potassium of 3.3 etc. as needed. (6) NSTEMI (non-ST elevated myocardial infarction): PLAN: Stable, was likely secondary to hypoxia on admission type II AL. PLAN: Plan As above. Critical care time spent with patient at bedside, review of documentation, lab results, radiology and other test results, discussion with colleagues and ancillary staff, clinical management of patient, and updating family if applicable, was 40 minutes. This time does not include any procedures, if performed. [place] [address]. Subjective Subjective No new complaints. Patient seen at bedside, data reviewed with nursing staff. Overnight events reviewed. Today she denies any cough chest pain or wheezing. Not producing sputum but does complain of thirst. She had transferred out to the floor yesterday but became hypotensive, blood pressure 50, transferred back to the ICU for Levophed. She is now growing 1 out of 2 positive blood cultures for coag negative staph and is on Vanco Zosyn. Received 2 boluses of 500 cc normal saline. She remains on Levophed at 5 mcg/min. Levophed infiltrated to peripheral IVs opposite arms with bilateral injection of phentolamine. Not much complaint of arm pain. Central line was placed overnight She was on BiPAP for 3 hours, at a rate of 12, tidal volume 450, PEEP of 8, FiO2 40%. Her home settings could not be determined at this time. Daytime SPO2 stable on 2 L/min O2 Objective Data Objective Data Reviewed Vital Signs: Vital Signs Temp Pulse Resp BP Pulse Ox O2 Del Method O2 Flow Rate 97.7 F L 82 23 H 103/67 100 Nasal Cannula 2 10/10/22 08:00 10/10/22 10:00 10/10/22 10:00 10/10/22 10:00 10/10/22 10:00 10/10/22 10:00 10/10/22 10:00 FiO2 40 percent NIV 10/10/22 05:00 Oxygen Flow Rate (L/min) 2 Oxygen Delivery Method Nasal Cannula Weight: 115 lb 15.41 oz Body Mass Index (BMI) 20.5 Intake & Output: Intake and Output for Last 24 Hours 10/08/22 10/09/22 10/10/22 23:59 23:59 23:59 Intake Total 1104.55 / 1154.55 1068.17 / 1068.17 Output Total 4550 / 4700 600 / 600 Balance -3445.45 / -3545.45 468.17 / 468.17 Medical Nutrition Assessment Dietitian: Malnutrition Criteria Met Start: 10/09/22 11:29 Freq: Status: Active Protocol: Document 10/10/22 09:49 AG (Rec: 10/10/22 09:49 AG [id number]) Nutrition Malnutrition Evidence of Malnutrition Exists Yes Malnutrition (severe): Chronic Evidenced By Weight Loss (Severe),Physical Changes (Moderate) Clinical Problem Chronic Disease or Condition Related Malnutrition Etiology severe, chronic malnutrition related to inadequate energy intake Signs/Symptoms as evidenced by unintentional 44.6#/27% wt loss x 13 months; moderate muscle wasting/fat loss evident per physical exam in orbital, clavicle, acromion, and temporal areas. Status Active Problem Recommendation Dietitian Recommendations/Changes will monitor PO intake of regular diet as established and add sodium restriction as indicated; will order ensure plus high protein 120mL 4x/day w/ medpass for additional nutrition if consumed. Lab / Micro Data Attestation: I reviewed the patient's lab results. Result Diagrams: 10/10/22 04:53 10/10/22 04:53 Labs: Laboratory Results - last 24 hr 10/08/22 23:15: Diff Path Review Reviewed 10/09/22 10:50: MRSA (PCR) Negative 10/09/22 11:14: POC Glucose 153 H 10/09/22 11:25: Troponin I High Sens 54 10/09/22 18:13: POC Glucose 185 H 10/10/22 01:38: POC Glucose 159 H 10/10/22 04:53: WBC 15.1 H, RBC 3.80 L, Hgb 10.9 L, Hct 34.1 L, MCV 89.7 D, MCH 28.7, MCHC 32.0 D, RDW Std Deviation 45.5 H, RDW Coeff of Deonte 14.0, Plt Count 233, MPV 10.4 10/10/22 04:53: Sodium 140, Potassium 3.3 L, Chloride 99, Carbon Dioxide 36.0 H, Anion Gap 5, BUN 23 H, Creatinine 0.93, Estim Creat Clear Calc 48.56, Est GFR (MDRD) Af Amer 78, Est GFR (MDRD) Non-Af 64, BUN/Creatinine Ratio 24.8 H, Glucose 188 H, Calcium 8.7, Total Bilirubin 0.40, AST 23, ALT 49, Alkaline Phosphatase 181 H, Total Protein 6.5, Albumin 3.0 L, Globulin 3.5, Albumin/Globulin Ratio 0.9 Micro: Microbiology 10/09/22 00:16 Blood Culture (Wb) - Anticubital Right Bacteria Detection (PCR) - Final Coag Negative Staph 10/09/22 00:16 Blood Culture (Wb) - Anticubital Right Blood Culture - Preliminary 10/09/22 06:25 Urine Catheter - Catheter Urine Culture - Preliminary Culture exhibits no growth. 10/09/22 09:30 Urine Catheter - Fortune Legionella Antigen - Final 10/09/22 09:30 Urine Catheter - Fortune Streptococcus pneumoniae Antigen (M - Final 10/08/22 23:20 Nasal Secretion SARS-CoV-2 & FLU Antigen (Rapid) - Final Radiography Diagnostic Testing: Radiology Impression Echocardiogram 10/09/22 01:02 Interpretation Summary The left ventricular ejection fraction is 55 %. Apical hypokinesis. The left atrium is mildly enlarged. Moderate (2+) eccentric mitral valve insufficiency. Ordering Physician: Francesca Anne Performed By: Colin Evans RCS Chest X-Ray 10/10/22 00:15 IMPRESSION: Central venous line is seen on the right side its tip is at the lower part of the superior vena cava. Electronically Signed: Peter De Guzman MD at 4:14 EDT , Physical Exam Narrative Well-developed slender BMI 20 no acute distress. Alert and oriented, speaking full sentences HEENT is without acute changes, mucous membranes moist Chest is unlabored, clear anteriorly bilaterally with no wheezes Heart normal S1-S2 Abdomen is soft Extremities with no clubbing cyanosis or edema. No skin compromise at Levophed infiltration and phentolamine antidote sites. Neuro is nonfocal Charges/Coding Procedures Hospitalists Procedures: 37028 Critial Care 1st Hr
--- NOTE | 2022-10-10 10:55 | PN.HOSP_ITS ---
Reason for Visit Reason for Visit: Diagnoses Elevated white blood cell count, unspecified (10/09/22) Acidosis, unspecified (10/09/22) Obstructive sleep apnea (adult) (pediatric) (10/09/22) Old myocardial infarction (10/09/22) Heart failure, unspecified (10/09/22) Nontraumatic intracerebral hemorrhage, unspecified (10/09/22) Chronic obstructive pulmonary disease with (acute) exacerbation (10/09/22) Pneumonitis due to inhalation of food and vomit (10/09/22) Acute and chronic respiratory failure with hypoxia (10/09/22) Acute and chronic respiratory failure with hypercapnia (10/09/22) Other malaise (10/09/22) Hyperglycemia, unspecified (10/09/22) Follow-up for hypotension/shock. Subjective Subjective Right IJ was inserted by nighttime hospitalist and patient on heparin drip. Objective Data Objective Data Vital Signs: Vital Signs Temp Pulse Resp BP Pulse Ox O2 Del Method O2 Flow Rate 97.7 F L 82 23 H 103/67 100 Nasal Cannula 2 10/10/22 08:00 10/10/22 10:00 10/10/22 10:00 10/10/22 10:00 10/10/22 10:00 10/10/22 10:00 10/10/22 10:49 FiO2 40 10/10/22 05:00 Oxygen Flow Rate (L/min) 2 Oxygen Delivery Method Nasal Cannula Weight: 115 lb 15.41 oz Body Mass Index (BMI) 20.5 Intake & Output: Intake and Output for Last 24 Hours 10/08/22 10/09/22 10/10/22 23:59 23:59 23:59 Intake Total 1104.55 / 1154.55 1068.17 / 1068.17 Output Total 4550 / 4700 600 / 600 Balance -3445.45 / -3545.45 468.17 / 468.17 Medical Nutrition Assessment Dietitian: Malnutrition Criteria Met Start: 10/09/22 11:29 Freq: Status: Active Protocol: Document 10/10/22 09:49 AG (Rec: 10/10/22 09:49 AG [id number]) Nutrition Malnutrition Evidence of Malnutrition Exists Yes Malnutrition (severe): Chronic Evidenced By Weight Loss (Severe),Physical Changes (Moderate) Clinical Problem Chronic Disease or Condition Related Malnutrition Etiology severe, chronic malnutrition related to inadequate energy intake Signs/Symptoms as evidenced by unintentional 44.6#/27% wt loss x 13 months; moderate muscle wasting/fat loss evident per physical exam in orbital, clavicle, acromion, and temporal areas. Status Active Problem Recommendation Dietitian Recommendations/Changes will monitor PO intake of regular diet as established and add sodium restriction as indicated; will order ensure plus high protein 120mL 4x/day w/ medpass for additional nutrition if consumed. Lab / Micro Data Result Diagrams: 10/10/22 04:53 10/10/22 04:53 Labs: Laboratory Results - last 24 hr 10/08/22 23:15: Diff Path Review Reviewed 10/09/22 10:50: MRSA (PCR) Negative 10/09/22 11:14: POC Glucose 153 H 10/09/22 11:25: Troponin I High Sens 54 10/09/22 18:13: POC Glucose 185 H 10/10/22 01:38: POC Glucose 159 H 10/10/22 04:53: WBC 15.1 H, RBC 3.80 L, Hgb 10.9 L, Hct 34.1 L, MCV 89.7 D, MCH 28.7, MCHC 32.0 D, RDW Std Deviation 45.5 H, RDW Coeff of Deonte 14.0, Plt Count 233, MPV 10.4 10/10/22 04:53: Sodium 140, Potassium 3.3 L, Chloride 99, Carbon Dioxide 36.0 H, Anion Gap 5, BUN 23 H, Creatinine 0.93, Estim Creat Clear Calc 48.56, Est GFR (MDRD) Af Amer 78, Est GFR (MDRD) Non-Af 64, BUN/Creatinine Ratio 24.8 H, Glucose 188 H, Calcium 8.7, Total Bilirubin 0.40, AST 23, ALT 49, Alkaline Phosphatase 181 H, Total Protein 6.5, Albumin 3.0 L, Globulin 3.5, Albumin/Globulin Ratio 0.9 Micro: Microbiology 10/09/22 00:16 Blood Culture (Wb) - Anticubital Right Bacteria Detection (PCR) - Final Coag Negative Staph 10/09/22 00:16 Blood Culture (Wb) - Anticubital Right Blood Culture - Preliminary 10/09/22 06:25 Urine Catheter - Catheter Urine Culture - Preliminary Culture exhibits no growth. 10/09/22 09:30 Urine Catheter - Fortune Legionella Antigen - Final 10/09/22 09:30 Urine Catheter - Fortune Streptococcus pneumoniae Antigen (M - Final 10/08/22 23:20 Nasal Secretion SARS-CoV-2 & FLU Antigen (Rapid) - Final Radiography Diagnostic Testing: Radiology Impression Echocardiogram 10/09/22 01:02 Interpretation Summary The left ventricular ejection fraction is 55 %. Apical hypokinesis. The left atrium is mildly enlarged. Moderate (2+) eccentric mitral valve insufficiency. Ordering Physician: Francesca Anne Performed By: Colin Evans RCS Chest X-Ray 10/10/22 00:15 IMPRESSION: Central venous line is seen on the right side its tip is at the lower part of the superior vena cava. Electronically Signed: Peter De Guzman MD at 4:14 EDT , Physical Exam Narrative Earlier patient had hypotension and cannot have IV fluid due to heart failure exacerbation therefore started on Levophed drip. Patient also had mild i nfiltration/extravasation of Levophed drip through peripheral line and phentolamine was given as treatment edema. Physical exam General: Alert, Oriented x3, Cooperative HEENT: Atraumatic, PERRLA, EOMI, Normocephalic Oral: Oral mucosa moist. No Gingival or Mucosal Lesions/ Ulcerations Neck: Right IJ line. On Levophed drip. Supple, No JVD, Negative Carotid Bruits Lungs: Air entry diminished in bilateral lung bases. Bibasilar expiratory rhonchi present Cardiovascular: Regular rate, Regular Rhythm, Normal S1, Normal S2, No murmurs Abdomen: Bowel Sounds Present, Soft, Non Tender, Non-Distended : No renal angle tenderness. No suprapubic tenderness. Extremities: No edema, Capillary Refill Less than 3 Seconds Skin: Mild infiltration with bruises skin but no necrotic skin or no hematoma. No tenderness. Musculoskeletal: No Tenderness to Palpation of Joints or Extremities. Muscle strength 4+/5 at major joint Neurological: Cranial nerves II-XII grossly intact, DTR 2+/4 and Symmetrical, Neuro grossly intact Psych/Mental Status: Flat affect Assessment & Plan Assessment/Plan (1) Acute on chronic respiratory failure with hypoxia and hypercapnia: (2) Acute decompensated heart failure: (3) COPD with acute exacerbation: (4) Lactic acidosis: (5) Leukocytosis: (6) Hyperglycemia: PLAN: Plan Acute on chronic hypoxic and hypercapnic respiratory failure secondary to acute exacerbation of COPD/decompensated heart failure Patient on 2 L of oxygen in the morning but currently on 4 L of oxygen. Mild tachypneic. Continue BiPAP. Discussed with pressing department supervisor. Acute decompensated heart failure: Patient was started on Lasix 40 mg IV every 8 hourly and preablation drop blood pressure is systolic 50s to 60s therefore Lasix is on hold. 2D echo done the left ventricular ejection fraction is 55 %. Apical hypokinesis. The left atrium is mildly enlarged. Moderate (2+) eccentric mitral valve insufficiency. Chest x-ray image reviewed shows opacities in both lower lungs with features of congestion and heart failure. First troponin is 74 but second 1 normal. BNP very high. Does not show up trending troponin therefore ACS ruled out. 10/10: Hypotension/undifferentiated shock exact etiology unclear: Initially it was thought to be hemodynamic fluid shift due to Lasix but did not improve therefore norepinephrine drip was started. Patient has a right IJ line. Mild extravasation and was treated with phentolamine but does not seem to be deep, necrotic or thrombosis on exam. Lasix discontinued. No fever. COPD exacerbation: On BiPAP as needed as needed. Recently decannulate tr acheostomy. On Solu-Medrol. On a scheduled DuoNeb. Respiratory panel COVID and flu antigen are negative. On Mucinex incentive spirometry NPO. Suspicion of aspiration pneumonia with history of dysphagia: Chest x-ray showed bilateral infiltrates. Patient had PEG tube in the past removed in August [address] Elizabeth. N.p.o. in the morning entolimod with speech therapist. GI is consulted. A1c 5.0. Prediabetes and diabetes mellitus ruled out. Patient on vancomycin and Zosyn. Seizure disorder -Continue Keppra and phenytoin GERD -Continue Protonix History of DVT -2017 -Off anticoagulation History of TIO -Unclear at this time if patient is compliant at baseline History of stroke/TIA -Continue aspirin -PT/OT/speech therapy consultation Hyperlipidemia -Continue home atorvastatin Depression/anxiety -Continue home medications Insomnia -Hold home Ambien with current respiratory status History of breast cancer -Carcinoma in situ -In remission History of alcohol abuse -Denies any current use History of tobacco abuse -In remission -Recommend ongoing cessation DVT prophylaxis -Lovenox 40 mg daily CODE STATUS -Full code Charges/Coding Visit Charges Inpatient E&M: 97[address] [facility] Hosp L3
[2022-10-10 11:50] LABS: Bedside Glucose 215 mg/dL (74-106)
[2022-10-10] MEDS: TITRATION PARAMETER CHANGE 1 EACH IV (14:00)
[2022-10-10] MEDS: Gabapentin 300 MG Capsule PO ×2 (15:06→22:32)
[2022-10-10 18:40] LABS: Bedside Glucose 211 mg/dL (74-106)
[2022-10-10] MEDS: Atorvastatin Calcium 40 MG Tablet PO (21:43)
[2022-10-11] VITALS (24 sets, daily range): BP systolic 110–147; BP diastolic 57–88; PULSE 76–106; RESP 12–24; TEMP 36.2–37.1; O2SAT 90–100; BMI 34.7
[2022-10-11] MEDS: Vancomycin IV 1,000 MG/200 ML BAG 200 MG IV (00:02)
[2022-10-11 00:15] LABS: Bedside Glucose 138 mg/dL (74-106)
[2022-10-11] MEDS: 0.9% Saline Lock 10 ML Syringe IV ×2 (04:16→13:54)
[2022-10-11] MEDS: LORazepam 0.5 MG Tablet PO ×2 (04:16→13:52)
[2022-10-11 04:31] LABS: Absolute Neutrophil Count 8.5 X10^3/uL (2.0-7.7); Basophil# 0.01 X10^3/uL; Basophil% 0.1 % (0-1); Hematocrit 34.3 % (37-47); Hemoglobin 10.9 g/dL (12.0-15.0); Lymphocyte % 7.2 % (19-41); Mean Corp Hgb Conc 31.8 g/dL (32-36); Mean Corpuscular Hgb 28.9 pg (27.0-32.0); Monocyte# 0.41 X10^3/uL; Monocyte% 4.2 % (0-10); NRBC Flagged by Analyzer 0 % (0-5); Neutrophil # 8.49 X10^3/uL (2.7-7.7); Neutrophil % 87.9 % (47-70); Platelet Count 233 K/mm3 (150-450); RBC Distribution Width CV 13.9 % (11.6-14.6); Red Blood Count 3.77 M/mm3 (4.2-5.4); White Blood Count 9.7 K/mm3 (4.4-11.0)
[2022-10-11 04:52] LABS: Anion Gap 0 (5-15); BUN 21 mg/dL (7-18); BUN/Creat Ratio 21.6 RATIO (10-20); Calcium,Total 8.9 mg/dL (8.5-10.1); Chloride 105 mmol/L (98-107); Creatinine, Serum 0.97 mg/dL (0.55-1.02); EST Glomerular Filtration Rate 61 mL/min (>60); Est Glom Filt Rate - Afr Amer 73 mL/min (>60); Estimated Creatinine Clearance 46.56 ml/min; Glucose 145 mg/dL (74-106); Potassium 3.8 mmol/L (3.5-5.1); Sodium Level 140 mmol/L (136-145)
--- NOTE | 2022-10-11 05:17 | NURSING ---
levo bag completed at 0330, MAR would not let me cont. charting titration since a new bag was not hung, vitals were charted.
--- NOTE | 2022-10-11 06:05 | PCM.RX.CS ---
Consult Pharmacy has been consulted to manage selected antiobiotic: Vancomycin Type of Consult: Follow-up Labs: Sodium 140 mmol/L (136-145) 10/11/22 04:20 Potassium 3.8 mmol/L (3.5-5.1) 10/11/22 04:20 Chloride 105 mmol/L (98-107) 10/11/22 04:20 Carbon Dioxide 35.0 mmol/L (21.0-32.0) H 10/11/22 04:20 Anion Gap 0 (5-15) L 10/11/22 04:20 BUN 21 mg/dL (7-18) H 10/11/22 04:20 Creatinine 0.97 mg/dL (0.55-1.02) 10/11/22 04:20 Est GFR (MDRD) Af Amer 73 mL/min (>60) 10/11/22 04:20 Est GFR (MDRD) Non-Af 61 mL/min (>60) 10/11/22 04:20 BUN/Creatinine Ratio 21.6 RATIO (10-20) H 10/11/22 04:20 Glucose 145 mg/dL (74-106) H 10/11/22 04:20 Microbiology: Microbiology 10/09/22 00:16 Blood Culture (Wb) - Anticubital Right Bacteria Detection (PCR) - Final Coag Negative Staph 10/09/22 00:16 Blood Culture (Wb) - Anticubital Right Blood Culture - Preliminary 10/09/22 06:25 Urine Catheter - Catheter Urine Culture - Preliminary Culture exhibits no growth. 10/09/22 09:30 Urine Catheter - Fortune Legionella Antigen - Final 10/09/22 09:30 Urine Catheter - Fortune Streptococcus pneumoniae Antigen (M - Final 10/08/22 23:20 Nasal Secretion SARS-CoV-2 & FLU Antigen (Rapid) - Final Pharmacy Plan for Drug Dosing: Pharmacy Service will continue to monitor and adjust dosing as required. LAB NOT DRAWN, RESCHEDULE PRIOR TO NEXT DOSE Follow-Up Labs: Trough Vancomycin Labs to be done on [date and time ordered]: 10/11 @ 9807
[2022-10-11] MEDS: Phenytoin Na 100 MG/4 ML UDC PO ×3 (06:12→20:12)
--- NOTE | 2022-10-11 06:13 | RAD_ITS ---
STUDY: X-RAY CHEST REASON FOR EXAM: Female, 66 years old patient with acute respiratory failure with hypoxemia. TECHNIQUE: Single AP portable view of the chest. COMPARISON: October 10, 2022. FINDINGS: Cardiac monitoring leads are present. Right-sided central venous catheter is present with the tip of the catheter at the cavoatrial junction. There is hyperinflation of the lungs consistent with chronic obstructive lung disease (COPD). There is no demonstrated pleural abnormality. There is borderline cardiomegaly. Normal mediastinum and jacinto. There is prominence of the pulmonary hilar arteries without peripheral pulmonary vascular congestion, suggesting pulmonary hypertension. Normal visualized aortic arch and descending thoracic aorta. Normal visualized thoracic spine. There appears to be callus adjacent to several of the right-sided ribs suggesting subacute or old fractures. There is no demonstrated abnormality of the visualized soft tissue structures of the upper abdomen. There appears to be some residual contrast within the colon. RAD/Chest 1 View (Portable) IMPRESSION: No radiographic evidence of acute cardiopulmonary disease. Electronically Signed: Lisa Amador MD at 6:55 EDT ,
[2022-10-11 06:36] LABS: Bedside Glucose 111 mg/dL (74-106)
[2022-10-11] MEDS: Ipratropium/Albuterol Sulfate 3 ML AMPUL.NEB INHALATION ×3 (06:40→14:10)
--- NOTE | 2022-10-11 07:26 | PN.HOSP_ITS ---
Reason for Visit Reason for Visit: Diagnoses Elevated white blood cell count, unspecified (10/09/22) Acidosis, unspecified (10/09/22) Obstructive sleep apnea (adult) (pediatric) (10/09/22) Non-ST elevation (NSTEMI) myocardial infarction (10/09/22) Old myocardial infarction (10/09/22) Heart failure, unspecified (10/09/22) Nontraumatic intracerebral hemorrhage, unspecified (10/09/22) Chronic obstructive pulmonary disease with (acute) exacerbation (10/09/22) Pneumonitis due to inhalation of food and vomit (10/09/22) Acute and chronic respiratory failure with hypoxia (10/09/22) Acute and chronic respiratory failure with hypercapnia (10/09/22) Urinary tract infection, site not specified (10/09/22) Other malaise (10/09/22) Hyperglycemia, unspecified (10/09/22) Follow-up for hold for SBP less than 130 mmHg/shock and acute on chronic combined respiratory failure Objective Data Objective Data Vital Signs: Vital Signs Temp Pulse Resp BP Pulse Ox O2 Del Method O2 Flow Rate 98.7 F 91 19 H 124/74 H 97 Nasal Cannula 2 10/11/22 07:03 10/11/22 07:03 10/11/22 07:03 10/11/22 07:03 10/11/22 07:03 10/11/22 07:03 10/11/22 07:03 FiO2 30 10/10/22 22:34 Oxygen Flow Rate (L/min) 2 Oxygen Delivery Method Nasal Cannula Weight: 195 lb 15.855 oz Body Mass Index (BMI) 34.7 Intake & Output: Intake and Output for Last 24 Hours 10/09/22 10/10/22 10/11/22 23:59 23:59 23:59 Intake Total 1104.55 / 1154.55 2427.13 / 2432.73 273.32 / 273.32 Output Total 4550 / 4700 1000 / 1000 200 / 200 Balance -3445.45 / -3545.45 1427.13 / 1432.73 73.32 / 73.32 Medical Nutrition Assessment Dietitian: Malnutrition Criteria Met Start: 10/09/22 11:29 Freq: Status: Active Protocol: Document 10/10/22 09:49 AG (Rec: 10/10/22 09:49 [id number]) Nutrition Malnutrition Evidence of Malnutrition Exists Yes Malnutrition (severe): Chronic Evidenced By Weight Loss (Severe),Physical Changes (Moderate) Clinical Problem Chronic Disease or Condition Related Malnutrition Etiology severe, chronic malnutrition related to inadequate energy intake Signs/Symptoms as evidenced by unintentional 44.6#/27% wt loss x 13 months; moderate muscle wasting/fat loss evident per physical exam in orbital, clavicle, acromion, and temporal areas. Status Active Problem Recommendation Dietitian Recommendations/Changes will monitor PO intake of regular diet as established and add sodium restriction as indicated; will order ensure plus high protein 120mL 4x/day w/ medpass for additional nutrition if consumed. Lab / Micro Data Result Diagrams: 10/11/22 04:20 10/11/22 04:20 Labs: Laboratory Results - last 24 hr 10/10/22 11:26: POC Glucose 215 H 10/10/22 18:06: POC Glucose 211 H 10/10/22 23:54: POC Glucose 138 H 10/11/22 04:20: WBC 9.7, RBC 3.77 L, Hgb 10.9 L, Hct 34.3 L, MCV 91.0, MCH 28.9, MCHC 31.8 L, RDW Std Deviation 47.0 H, RDW Coeff of Deonte 13.9, Plt Count 233, MPV 11.0, Immature Gran % (Auto) 0.600, Neut % (Auto) 87.9 H, Lymph % (Auto) 7.2 L, [place] % (Auto) 4.2, Eos % (Auto) 0.0, Baso % (Auto) 0.1, Absolute Neuts (auto) 8.5 H, Absolute Lymphs (auto) 0.70 L, Nucleated RBC % 0 10/11/22 04:20: Sodium 140, Potassium 3.8, Chloride 105, Carbon Dioxide 35.0 H, Anion Gap 0 L, BUN 21 H, Creatinine 0.97, Estim Creat Clear Calc 46.56, Est GFR (MDRD) Af Amer 73, Est GFR (MDRD) Non-Af 61, BUN/Creatinine Ratio 21.6 H, Glucose 145 H, Calcium 8.9 10/11/22 06:11: POC Glucose 111 H Micro: Microbiology 10/09/22 00:16 Blood Culture (Wb) - Anticubital Right Bacteria Detection (PCR) - Final Coag Negative Staph 10/09/22 00:16 Blood Culture (Wb) - Anticubital Right Blood Culture - Preliminary 10/09/22 06:25 Urine Catheter - Catheter Urine Culture - Preliminary Culture exhibits no growth. 10/09/22 09:30 Urine Catheter - Fortune Legionella Antigen - Final 10/09/22 09:30 Urine Catheter - Fortune Streptococcus pneumoniae Antigen (M - Final 10/08/22 23:20 Nasal Secretion SARS-CoV-2 & FLU Antigen (Rapid) - Final Radiography Diagnostic Testing: Radiology Impression Chest X-Ray 10/11/22 06:13 IMPRESSION: No radiographic evidence of acute cardiopulmonary disease. Electronically Signed: Lisa Amador MD at 6:55 EDT Reading Location ID and State: [facility] / [place] , Service support , Physical Exam Narrative Patient is off Levophed drip early in the morning. Maintaining her blood pressure. Patient refused for AVAPS/BiPAP. Physical exam General: Alert, Oriented x3, Cooperative HEENT: Atraumatic, PERRLA, EOMI, Normocephalic Oral: Oral mucosa moist. No Gingival or Mucosal Lesions/ Ulcerations Neck: Right IJ line. Supple, No JVD, Negative Carotid Bruits Lungs: Air entry diminished in bilateral lung bases. Bibasilar expiratory rho nchi present Cardiovascular: Regular rate, Regular Rhythm, Normal S1, Normal S2, No murmurs Abdomen: Bowel Sounds Present, Soft, Non Tender, Non-Distended : No renal angle tenderness. No suprapubic tenderness. Extremities: No edema, Capillary Refill Less than 3 Seconds Skin: no necrotic skin or no hematoma. No tenderness. Musculoskeletal: No Tenderness to Palpation of Joints or Extremities. Muscle strength 4+/5 at major joint Neurological: Cranial nerves II-XII grossly intact, DTR 2+/4 and Symmetrical, Neuro grossly intact Psych/Mental Status: Flat affect Assessment & Plan Assessment/Plan (1) Acute on chronic respiratory failure with hypoxia and hypercapnia: (2) Acute decompensated heart failure: (3) COPD with acute exacerbation: (4) Lactic acidosis: (5) Leukocytosis: (6) Hyperglycemia: PLAN: Plan Acute on chronic hypoxic and hypercapnic respiratory failure secondary to acute exacerbation of COPD/decompensated heart failure Patient on 2 L of oxygen in the morning but currently on 4 L of oxygen. Mild tachypneic. Continue BiPAP. Discussed with house painter. 10/11: Patient recommended AVAPS with tidal volume 450 mill, rate 12 PEEP 8. Patient work only for 3 hours. Acute decompensated heart failure: Patient was started on Lasix 40 mg IV every 8 hourly and preablation drop blood pressure is systolic 50s to 60s therefore Lasix is on hold. 2D echo done the left ventricular ejection fraction is 55 %. Apical hypokinesis. The left atrium is mildly enlarged. Moderate (2+) eccentric mitral valve insufficiency. Chest x-ray image reviewed shows opacities in both lower lungs with features of congestion and heart failure. First troponin is 74 but second 1 normal. BNP very high. Does not show up trending troponin therefore ACS ruled out. 10/10: Hypotension/undifferentiated shock exact etiology unclear: Initially it was thought to be hemodynamic fluid shift due to Lasix but did not improve therefore norepinephrine drip was started. Patient has a right IJ line. Mild extravasation and was treated with phentolamine but does not seem to be deep, necrotic or thrombosis on exam. Lasix discontinued. No fever. 10/11: Patient off Levophed drip. If she maintains her blood pressure, plan to transfer to PCU COPD exacerbation: On BiPAP as needed as needed. Recently decannulate tracheostomy. On Solu-Medrol. On a scheduled DuoNeb. Respiratory panel COVID and flu antigen are negative. On Mucinex incentive spirometry NPO. 10/11: 1 out of 2 blood culture shows coagulase-negative staph possible contamination. Vancomycin is stopped in the morning. Suspicion of aspiration pneumonia with history of dysphagia: Chest x-ray showed bilateral infiltrates. Patient had PEG tube in the past removed in August [address] Elizaebth. N.p.o. in the morning entolimod with speech therapist. GI is consulted. A1c 5.0. Prediabetes and diabetes mellitus ruled out. Patient on vancomycin and Zosyn. 10/11: Patient had modified barium swallow found mild oropharyngeal dysphagia. Patient on diet as recommended by speech therapist. Patient refused for PEG tube. Seizure disorder -Continue Keppra and phenytoin GERD -Continue Protonix History of DVT -2016 -Off anticoagulation History of TIO -Unclear at this time if patient is compliant at baseline History of stroke/TIA -Continue aspirin -PT/OT/speech therapy consultation Hyperlipidemia -Continue home atorvastatin Depression/anxiety -Continue home medications Insomnia -Hold home Ambien with current respiratory status History of breast cancer -Carcinoma in situ -In remission History of alcohol abuse -Denies any current use History of tobacco abuse -In remission -Recommend ongoing cessation DVT prophylaxis -Lovenox 40 mg daily CODE STATUS -Full code Charges/Coding Visit Charges Inpatient E&M: 16358 Subs Hosp L3
[2022-10-11] MEDS: QUEtiapine 25 MG Tablet 50 MG PO ×2 (08:03→20:14)
[2022-10-11] MEDS: Aspirin 81 MG TAB.CHEW PO (08:03)
[2022-10-11] MEDS: ARIPiprazole 2 MG Tablet PO (08:03)
[2022-10-11] MEDS: busPIRone 5 MG Tablet 10 MG PO ×2 (08:03→20:11)
[2022-10-11] MEDS: levETIRAcetam Oral Solution 500 MG/5 ML PO ×2 (08:04→20:12)
[2022-10-11] MEDS: Enoxaparin 40 MG/0.4 ML Syringe SC (08:04)
[2022-10-11] MEDS: guaiFENesin 1,200 MG Tablet 1200 MG PO ×2 (08:04→20:13)
[2022-10-11] MEDS: Insulin Lispro 100 UNIT/ML INSULN.PEN SC (13:18)
[2022-10-11 13:55] LABS: Bedside Glucose 161 mg/dL (74-106)
[2022-10-11] MEDS: Gabapentin 300 MG Capsule PO (16:32)
--- NOTE | 2022-10-11 17:07 | PCM.PN.INT ---
Assessment & Plan Assessment/Plan (1) Aspiration pneumonia due to gastric secretions: PLAN: Patient with markedly abnormal swallowing study, continues to refuse PEG tube. - Weaned off Levophed at 3 AM today. - Patient is stable and transferred to PCU today. Pulmonary will sign off, please call if further input is needed. (2) Acute on chronic respiratory failure with hypoxia: PLAN: - Stable on 2 L of O2, treating exacerbations of COPD and CHF. - Continue nocturnal AVAPS at settings of rate 12 tidal volume 450 PEEP 8. Patient is mostly refusing it; is very unlikely to wear it at home. She knows that O2 alone is not ideal treatment for her. (3) Urinary tract infection: PLAN: Covered with Zosyn. (4) COPD with acute exacerbation: PLAN: See meds and orders. (5) Acute decompensated heart failure: PLAN: Improved, see meds and orders. BUN normalized after holding Lasix yesterday. - Restart low-dose Lasix if needed - Restart metoprolol at 12.5 mg twice daily due to recent discontinuation of Levophed - Discontinue Fortune. (6) NSTEMI (non-ST elevated myocardial infarction): PLAN: Stable, was likely secondary to hypoxia on admission type II [place]. PLAN: Plan As above. Subjective Subjective No change, still has some dyspnea on exertion, Patient seen at bedside, reviewed with staff at multidisciplinary rounds, stable overnight, RASS 0, no complaints of pain, RIJ infusing well, her arms are doing well at the Levophed infiltration sites treated with phentolamine. Off Levophed at 3:30 AM today. Transferring to PCU. Objective Data Objective Data Vital Signs: Vital Signs Temp Pulse Resp BP Pulse Ox O2 Del Method O2 Flow Rate 97.7 F L 106 H 17 120/68 98 Nasal Cannula 2 10/11/22 16:36 10/11/22 16:36 10/11/22 16:36 10/11/22 16:36 10/11/22 16:36 10/11/22 16:36 10/11/22 16:36 FiO2 30 10/10/22 22:34 Oxygen Flow Rate (L/min) 2 Oxygen Delivery Method Nasal Cannula stable on 2 L nasal O2, wore BiPAP for only 40 minutes last night, refused. Weight: 195 lb 15.855 oz Body Mass Index (BMI) 34.7 Intake & Output: Intake and Output for Last 24 Hours 10/09/22 10/10/22 10/11/22 23:59 23:59 23:59 Intake Total 1104.55 / 1154.55 2427.13 / 2432.73 323.32 / 323.32 Output Total 4550 / 4700 1000 / 1000 600 / 600 Balance -3445.45 / -3545.45 1427.13 / 1432.73 -276.68 / -276.68 Medical Nutrition Assessment Dietitian: Malnutrition Criteria Met Start: 10/09/22 11:29 Freq: Status: Active Protocol: Document 10/10/22 09:49 AG (Rec: 10/10/22 09:49 AG [id number]) Nutrition Malnutrition Evidence of Malnutrition Exists Yes Malnutrition (severe): Chronic Evidenced By Weight Loss (Severe),Physical Changes (Moderate) Clinical Problem Chronic Disease or Condition Related Malnutrition Etiology severe, chronic malnutrition related to inadequate energy intake Signs/Symptoms as evidenced by unintentional 44.6#/27% wt loss x 13 months; moderate muscle wasting/fat loss evident per physical exam in orbital, clavicle, acromion, and temporal areas. Status Active Problem Recommendation Dietitian Recommendations/Changes will monitor PO intake of regular diet as established and add sodium restriction as indicated; will order ensure plus high protein 120mL 4x/day w/ medpass for additional nutrition if consumed. Lab / Micro Data Result Diagrams: 10/11/22 04:20 10/11/22 04:20 Labs: Laboratory Results - last 24 hr 10/10/22 18:06: POC Glucose 211 H 10/10/22 23:54: POC Glucose 138 H 10/11/22 04:20: WBC 9.7, RBC 3.77 L, Hgb 10.9 L, Hct 34.3 L, MCV 91.0, MCH 28.9, MCHC 31.8 L, RDW Std Deviation 47.0 H, RDW Coeff of Deonte 13.9, Plt Count 233, MPV 11.0, Immature Gran % (Auto) 0.600, Neut % (Auto) 87.9 H, Lymph % (Auto) 7.2 L, [place] % (Auto) 4.2, Eos % (Auto) 0.0, Baso % (Auto) 0.1, Absolute Neuts (auto) 8.5 H, Absolute Lymphs (auto) 0.70 L, Nucleated RBC % 0 10/11/22 04:20: Sodium 140, Potassium 3.8, Chloride 105, Carbon Dioxide 35.0 H, Anion Gap 0 L, BUN 21 H, Creatinine 0.97, Estim Creat Clear Calc 46.56, Est GFR (MDRD) Af Amer 73, Est GFR (MDRD) Non-Af 61, BUN/Creatinine Ratio 21.6 H, Glucose 145 H, Calcium 8.9 10/11/22 06:11: POC Glucose 111 H 10/11/22 13:17: POC Glucose 161 H Micro: Microbiology 10/09/22 00:30 Blood Culture (Wb) - Right Wrist Blood Culture - Preliminary No growth in 48 hours. 10/09/22 00:16 Blood Culture (Wb) - Anticubital Right Bacteria Detection (PCR) - Final Coag Negative Staph 10/09/22 00:16 Blood Culture (Wb) - Anticubital Right Blood Culture - Preliminary Coag Negative Staph 10/09/22 06:25 Urine Catheter - Catheter Urine Culture - Final Culture exhibits no growth. 10/09/22 09:30 Urine Catheter - Fortune Legionella Antigen - Final 10/09/22 09:30 Urine Catheter - Fortune Streptococcus pneumoniae Antigen (M - Final 10/08/22 23:20 Nasal Secretion SARS-CoV-2 & FLU Antigen (Rapid) - Final Radiography Diagnostic Testing: Radiology Impression Chest X-Ray 10/11/22 06:13 IMPRESSION: No radiographic evidence of acute cardiopulmonary disease. Electronically Signed: Lisa Amador MD at 6:55 EDT Reading Location ID and State: [facility] / [place] , Service support , Physical Exam Narrative Unlabored respiration Sleeping comfortably, Exam unchanged from yesterday. Charges/Coding Visit Charges Inpatient E&M: 35877 Subs Hosp L1
[2022-10-11 17:10] LABS: Bedside Glucose 108 mg/dL (74-106)
[2022-10-11] MEDS: Ensure Plus High Protein 120 ML LIQUID PO (20:12)
[2022-10-11] MEDS: Atorvastatin Calcium 40 MG Tablet PO (20:13)
[2022-10-11] MEDS: Acetaminophen 325 MG Tablet 650 MG PO (20:16)
--- NOTE | 2022-10-11 22:57 | NURSING ---
pt is requesting PRN Ativan at HS, physician updated, pt is currently refusing to wear BIPAP, educated completed, pt continues to refuse care, bedside SP02 monitoring continues will monitor pt.
[2022-10-12] VITALS (9 sets, daily range): BP systolic 102–125; BP diastolic 51–62; PULSE 72–83; RESP 12–20; TEMP 36.5–36.6; O2SAT 82–100; BMI 20.9
[2022-10-12 00:33] LABS: Vancomycin, Trough Level 2.4 ug/mL (5.0-15.0)
[2022-10-12] MEDS: Vancomycin IV 1,000 MG/200 ML BAG 200 MG IV (01:05)
[2022-10-12 01:25] LABS: Bedside Glucose 132 mg/dL (74-106)
[2022-10-12] MEDS: Phenytoin Na 100 MG/4 ML UDC PO ×2 (05:08→13:54)
[2022-10-12] MEDS: 0.9% Saline Lock 10 ML Syringe IV ×2 (05:09→14:45)
[2022-10-12 06:47] LABS: Absolute Neutrophil Count 5.9 X10^3/uL (2.0-7.7); Basophil# 0.01 X10^3/uL; Basophil% 0.1 % (0-1); Hematocrit 37.3 % (37-47); Hemoglobin 11.6 g/dL (12.0-15.0); Lymphocyte % 18.8 % (19-41); Mean Corp Hgb Conc 31.1 g/dL (32-36); Mean Corpuscular Hgb 28.4 pg (27.0-32.0); Mean Corpuscular Volume 91.2 fL (81-99); Monocyte# 0.56 X10^3/uL; NRBC Flagged by Analyzer 0 % (0-5); Neutrophil # 5.87 X10^3/uL (2.7-7.7); Neutrophil % 73.6 % (47-70); Platelet Count 188 K/mm3 (150-450); RBC Distribution Width CV 13.9 % (11.6-14.6); RBC Distribution Width SD 46.6 fl (35.1-43.9); Red Blood Count 4.09 M/mm3 (4.2-5.4)
[2022-10-12] MEDS: Ipratropium/Albuterol Sulfate 3 ML AMPUL.NEB INHALATION ×3 (06:52→15:09)
[2022-10-12 07:03] LABS: Anion Gap 2 (5-15); BUN 22 mg/dL (7-18); BUN/Creat Ratio 32.2 RATIO (10-20); Calcium,Total 8.6 mg/dL (8.5-10.1); Chloride 107 mmol/L (98-107); Creatinine, Serum 0.68 mg/dL (0.55-1.02); EST Glomerular Filtration Rate 91 mL/min (>60); Est Glom Filt Rate - Afr Amer 110 mL/min (>60); Estimated Creatinine Clearance 45.16 ml/min; Glucose 106 mg/dL (74-106); Potassium 3.4 mmol/L (3.5-5.1); Sodium Level 139 mmol/L (136-145)
[2022-10-12 07:15] LABS: Bedside Glucose 114 mg/dL (74-106)
[2022-10-12] MEDS: guaiFENesin 1,200 MG Tablet 1200 MG PO (08:04)
[2022-10-12] MEDS: Enoxaparin 40 MG/0.4 ML Syringe SC (08:04)
[2022-10-12] MEDS: Aspirin 81 MG TAB.CHEW PO (08:04)
[2022-10-12] MEDS: Metoprolol(XL)Succ 25 MG Tablet PO (08:05)
[2022-10-12] MEDS: ARIPiprazole 2 MG Tablet PO (08:05)
[2022-10-12] MEDS: busPIRone 5 MG Tablet 10 MG PO (08:06)
[2022-10-12] MEDS: Cholecalciferol (VIT D3) 25 MCG TABLET (1,000 UNITS) PO (08:06)
[2022-10-12] MEDS: QUEtiapine 25 MG Tablet 50 MG PO (08:07)
[2022-10-12] MEDS: Buprenorphine HCl 2 MG TAB.SUBL SL (08:11)
--- NOTE | 2022-10-12 08:13 | PCM.PN.HOSP ---
Reason for Visit Reason for Visit: Diagnoses Elevated white blood cell count, unspecified (10/09/22) Acidosis, unspecified (10/09/22) Obstructive sleep apnea (adult) (pediatric) (10/09/22) Non-ST elevation (NSTEMI) myocardial infarction (10/09/22) Old myocardial infarction (10/09/22) Heart failure, unspecified (10/09/22) Nontraumatic intracerebral hemorrhage, unspecified (10/09/22) Chronic obstructive pulmonary disease with (acute) exacerbation (10/09/22) Pneumonitis due to inhalation of food and vomit (10/09/22) Acute and chronic respiratory failure with hypoxia (10/09/22) Acute and chronic respiratory failure with hypercapnia (10/09/22) Urinary tract infection, site not specified (10/09/22) Other malaise (10/09/22) Hyperglycemia, unspecified (10/09/22) Objective Data Objective Data Vital Signs: Vital Signs Temp Pulse Resp BP Pulse Ox O2 Del Method O2 Flow Rate 97.7 F L 83 16 110/58 L 99 Nasal Cannula 2 10/12/22 03:01 10/12/22 06:52 10/12/22 06:52 10/12/22 03:01 10/12/22 06:52 10/12/22 06:52 10/12/22 06:52 FiO2 30 10/11/22 20:25 Oxygen Flow Rate (L/min) 2 Oxygen Delivery Method Nasal Cannula Weight: 118 lb 2.684 oz Body Mass Index (BMI) 20.9 Intake & Output: Intake and Output for Last 24 Hours 10/10/22 10/11/22 10/12/22 23:59 23:59 23:59 Intake Total 2427.13 / 2432.73 609.57 / 609.57 250 / 250 Output Total 1000 / 1000 600 / 1600 1000 / 1000 Balance 1427.13 / 1432.73 9.57 / -990.43 -750 / -750 Medical Nutrition Assessment Dietitian: Malnutrition Criteria Met Start: 10/09/22 11:29 Freq: Status: Active Protocol: Document 10/10/22 09:49 AG (Rec: 10/10/22 09:49 AG [id number]) Nutrition Malnutrition Evidence of Malnutrition Exists Yes Malnutrition (severe): Chronic Evidenced By Weight Loss (Severe),Physical Changes (Moderate) Clinical Problem Chronic Disease or Condition Related Malnutrition Etiology severe, chronic malnutrition related to inadequate energy intake Signs/Symptoms as evidenced by unintentional 44.6#/27% wt loss x 13 months; moderate muscle wasting/fat loss evident per physical exam in orbital, clavicle, acromion, and temporal areas. Status Active Problem Recommendation Dietitian Recommendations/Changes will monitor PO intake of regular diet as established and add sodium restriction as indicated; will order ensure plus high protein 120mL 4x/day w/ medpass for additional nutrition if consumed. Lab / Micro Data Result Diagrams: 10/12/22 06:05 10/12/22 06:05 Labs: Laboratory Results - last 24 hr 10/11/22 13:17: POC Glucose 161 H 10/11/22 16:34: POC Glucose 108 H 10/11/22 23:50: Vancomycin Trough 2.4 L 10/12/22 00:54: POC Glucose 132 H 10/12/22 06:05: WBC 8.0, RBC 4.09 L, Hgb 11.6 L, Hct 37.3, MCV 91.2, MCH 28.4, MCHC 31.1 L, RDW Std Deviation 46.6 H, RDW Coeff of Deonte 13.9, Plt Count 188, MPV 11.0, Immature Gran % (Auto) 0.500, Neut % (Auto) 73.6 H, Lymph % (Auto) 18.8 L, [place] % (Auto) 7.0, Eos % (Auto) 0.0, Baso % (Auto) 0.1, Absolute Neuts (auto) 5.9, Absolute Lymphs (auto) 1.50, Nucleated RBC % 0 10/12/22 06:05: Sodium 139, Potassium 3.4 L, Chloride 107, Carbon Dioxide 30.0, Anion Gap 2 L, BUN 22 H, Creatinine 0.68, Estim Creat Clear Calc 45.16, Est GFR (MDRD) Af Amer 110, Est GFR (MDRD) Non-Af 91, BUN/Creatinine Ratio 32.2 H, Glucose 106, Calcium 8.6 10/12/22 06:15: POC Glucose 114 H Micro: Microbiology 10/09/22 00:30 Blood Culture (Wb) - Right Wrist Blood Culture - Preliminary No growth in 48 hours. 10/09/22 00:16 Blood Culture (Wb) - Anticubital Right Bacteria Detection (PCR) - Final Coag Negative Staph 10/09/22 00:16 Blood Culture (Wb) - Anticubital Right Blood Culture - Preliminary Coag Negative Staph 10/09/22 06:25 Urine Catheter - Catheter Urine Culture - Final Culture exhibits no growth. 10/09/22 09:30 Urine Catheter - Fortune Legionella Antigen - Final 10/09/22 09:30 Urine Catheter - Fortune Streptococcus pneumoniae Antigen (M - Final 10/08/22 23:20 Nasal Secretion SARS-CoV-2 & FLU Antigen (Rapid) - Final Physical Exam Narrative Patient is off Levophed drip early in the morning. Maintaining her blood pressure. Patient refused for AVAPS/BiPAP. Physical exam General: Alert, Oriented x3, Cooperative HEENT: Atraumatic, PERRLA, EOMI, Normocephalic Oral: Oral mucosa moist. No Gingival or Mucosal Lesions/ Ulcerations Neck: Right IJ line. Supple, No JVD, Negative Carotid Bruits Lungs: Air entry diminished in bilateral lung bases. Bibasilar expiratory rhonchi present Cardiovascular: Regular rate, Regular Rhythm, Normal S1, Normal S2, No murmurs Abdomen: Bowel Sounds Present, Soft, Non Tender, Non-Distended : No renal angle tenderness. No suprapubic tenderness. Extremities: No edema, Capillary Refill Less than 3 Seconds Skin: no necrotic skin or no hematoma. No tenderness. Musculoskeletal: No Tenderness to Palpation of Joints or Extremities. Muscle strength 4+/5 at major joint Neurological: Cranial nerves II-XII grossly intact, DTR 2+/4 and Symmetrical, Neuro grossly intact Psych/Mental Status: Flat affect Assessment & Plan Assessment/Plan (1) Acute on chronic respiratory failure with hypoxia and hypercapnia: (2) Acute decompensated heart failure: (3) COPD with acute exacerbation: (4) Lactic acidosis: (5) Leukocytosis: (6) Hyperglycemia: PLAN: Plan Acute on chronic hypoxic and hypercapnic respiratory failure secondary to acute exacerbation of COPD/decompensated heart failure Patient on 2 L of oxygen in the morning but currently on 4 L of oxygen. Mild tachypneic. Continue BiPAP. Discussed with resident physician in radiology. 10/11: Patient recommended AVAPS with tidal volume 450 mill, rate 12 PEEP 8. Patient work only for 3 hours. Acute decompensated heart failure: Patient was started on Lasix 40 mg IV every 8 hourly and preablation drop blood pressure is systolic 50s to 60s therefore Lasix is on hold. 2D echo done the left ventricular ejection fraction is 55 %. Apical hypokinesis. The left atrium is mildly enlarged. Moderate (2+) eccentric mitral valve insufficiency. Chest x-ray image reviewed shows opacities in both lower lungs with features of congestion and heart failure. First troponin is 74 but second 1 normal. BNP very high. Does not show up trending troponin therefore ACS ruled out. 10/10: Hypotension/undifferentiated shock exact etiology unclear: Initially it was thought to be hemodynamic fluid shift due to Lasix but did not improve therefore norepinephrine drip was started. Patient has a right IJ line. Mild extravasation and was treated with phentolamine but does not seem to be deep, necrotic or thrombosis on exam. Lasix discontinued. No fever. 10/11: Patient off Levophed drip. If she maintains her blood pressure, plan to transfer to PCU COPD exacerbation: On BiPAP as needed as needed. Recently decannulate tracheostomy. On Solu-Medrol. On a scheduled DuoNeb. Respiratory panel COVID and flu antigen are negative. On Mucinex incentive spirometry NPO. 10/11: 1 out of 2 blood culture shows coagulase-negative staph possible contamination. Vancomycin is stopped in the morning. Suspicion of aspiration pneumonia with history of dysphagia: Chest x-ray showed bilateral infiltrates. Patient had PEG tube in the past removed in August [address] Elizabeth. N.p.o. in the morning entolimod with speech therapist. GI is consulted. A1c 5.0. Prediabetes and diabetes mellitus ruled out. Patient on vancomycin and Zosyn. 10/11: Patient had modified barium swallow found mild oropharyngeal dysphagia. Patient on diet as recommended by speech therapist. Patient refused for PEG tube. Seizure disorder -Continue Keppra and phenytoin GERD -Continue Protonix History of DVT -2016 -Off anticoagulation History of TIO -Unclear at this time if patient is compliant at baseline History of stroke/TIA -Continue aspirin -PT/OT/speech therapy consultation Hyperlipidemia -Continue home atorvastatin Depression/anxiety -Continue home medications Insomnia -Hold home Ambien with current respiratory status History of breast cancer -Carcinoma in situ -In remission History of alcohol abuse -Denies any current use History of tobacco abuse -In remission -Recommend ongoing cessation DVT prophylaxis -Lovenox 40 mg daily CODE STATUS -Full code
[2022-10-12] MEDS: levETIRAcetam Oral Solution 500 MG/5 ML PO (08:21)
--- NOTE | 2022-10-12 09:23 | PCM.DC ---
Discharge Instructions Diet Discharge Diet: No restrictions (Distant supervision, alternate bites and sips, sips one at a time) Activity Discharge Activity: Return to Normal Activity Weight Bearing Status: Weight bearing as tolerated Dressing / Incision Call your doctor if you observe: Fever of 101 or Higher, Coldness, Increased Pain, Numbness or Tingling, Change in Color, Inability to urinate, Inability to have a bowel movement, Using more than 1 pad per hour, Shortness of breath, Dizziness, Fainting spells, Swelling in the ankles, Chest pain, Prolonged hiccupping, Increased palpitations (irregular heartbeat) and Calf discomfort Follow Up Care When: IN 2 WEEKS Test Results: Test results from this visit will be discussed in further detail at your follow-up appointment, if applicable. Discharge Plan Admission Admit Date/Time: 10/09/22 00:51 Primary Reason for Your Visit: Acute on chronic combined respiratory failure Attending Provider: Tex Agee Primary Care Provider: Maryam Pineda Consulting Providers: Francesca Anne ; Mike Duarte ; Anurag Flannery ; Omid Wahl ; Samuel Minor ; Ema Stevens MICROPHONE OPERATOR Discharge Orders/Prescriptions Prescriptions: New Mucus Relief ER 1,200 mg Tablet Extended Release 12hr 1,200 mg PO BID 7 Days Qty: 14 0RF prednisone 20 mg tablet 40 mg PO DAILY 5 Days Qty: 10 0RF Continued albuterol sulfate [Ventolin HFA] 90 mcg/actuation HFA aerosol inhaler 2 puff inhalation Q4H PRN (Reason: shortness of breath or wheezing) Qty: 18 6RF mecobalamin (vitamin B12) 5,000 mcg tablet,disintegrating 5,000 mcg PO DAILY atorvastatin 40 mg tablet 40 mg PO QHS metoprolol succinate 25 mg tablet extended release 24 hr 25 mg PO DAILY aripiprazole [Abilify] 2 mg tablet 2 mg PO DAILY pantoprazole [Protonix] 40 mg Tablet,Delayed Release (Dr/Ec) 40 mg PO DAILY folic acid 1 mg Tablet 1 mg PO DAILY aspirin 81 mg Tablet 81 mg PO DAILY cholecalciferol (vitamin D3) [Vitamin D3] 25 mcg (1,000 unit) Tablet 25 mcg PO DAILY albuterol sulfate 1.25 mg/3 mL Solution For Nebulization 1.25 mg INHALATION Q4H PRN (Reason: Shortness Of Breath Or Wheezing) acetaminophen 650 mg/20.3 mL Solution 650 mg G-tube Q4H PRN PRN (Reason: Pain 1-10 Or Fever) Qty: 0 0RF ipratropium-albuterol 0.5 mg-3 mg(2.5 mg base)/3 mL Solution For Nebulization 3 ml inhalation Q6HWA.RT Qty: 0 0RF albuterol sulfate 2.5 mg /3 mL (0.083 %) Solution For Nebulization 2.5 mg inhalation Q2H PRN PRN (Reason: Dyspnea, wheezing) Qty: 0 0RF sennosides-docusate sodium [Stool Softener-Stimulant Laxat] 8.6-50 mg Tablet 2 tab G-tube BID Qty: 0 0RF potassium chloride 20 mEq/15 mL Liquid 40 meq G-tube BID Qty: 0 0RF famotidine 20 mg Tablet 20 mg G-tube BID Qty: 0 0RF oxycodone 5 mg Tablet 5 mg G-tube Q6H PRN PRN (Reason: Pain Score 6-10) 3 Days Qty: 0 0RF Jevity 1.5 Kelvin 0.06 gram-1.5 kcal/mL Liquid 240 ml G-tube 0900,1200,1600,1900 Qty: 0 0RF zolpidem [Ambien] 5 mg tablet 5 mg PO QHS PRN (Reason: insomnia) 30 Days Qty: 30 0RF amoxicillin-pot clavulanate 500-125 mg tablet 1 tab PO Q12H Qty: 14 0RF nvbxblrkhsg-ejwhxrbof-jifryfhy 100-62.5-25 mcg blister with device 1 inh inhalation DAILY Qty: 60 11RF Changed buspirone 5 mg Tablet 10 mg PO BID Qty: 0 0RF furosemide 10 mg/mL Solution 20 mg PO BIDLX Qty: 0 0RF quetiapine 100 mg Tablet 50 mg PO BID Qty: 0 0RF levetiracetam 100 mg/mL Solution 500 mg PO BID Qty: 0 0RF phenytoin 100 mg/4 mL Suspension 100 mg PO Q8 30 Days Qty: 360 2RF Referrals / Follow Up: Marquise Palmer MD [Med Staff - Active Staff] - Within 1 Month Mike Duarte MD [Med Staff - Active Staff] - Within 1 Month Maryam Pineda MD [Primary Care Provider] - Disposition Disposition (needs filled in before D/C Order can be placed): Home Health Service
[2022-10-12 12:25] LABS: Vancomycin, Random Level 15.1 ug/mL (0.0-15.0)
--- NOTE | 2022-10-12 12:33 | DS.PCM_ITS ---
Providers Date of Admission: 10/09/22 Date of Discharge: 10/12/22 Primary Care Physician: Dr. Maryam Pineda MD Consultations 10/09/22 04:24 Consult: Ultra Sound Technician / Pulmonary Medicine Routine Consulting Provider: Pulmonary Medicine [facility] [place] Reason for Consult: Acute on chronic hypoxic and hypercapnic respiratory failure EMERGENT Consult: No MD Notified: Yes Date Notified: 10/09/22 Time Notified: 01:18 Method of Notification: Text Method of Consult:: In-Person 10/09/22 08:19 Consult: Gastroenterology Routine Consulting Provider: [facility] Reason for Consult: PEG tube placement, see service employee note, chronic aspir ation. EMERGENT Consult: Yes MD Notified: Yes Date Notified: 10/09/22 Time Notified: 08:20 Method of Notification: ICU staff Reason For Visit: ACUTE ON CHRONIC HYPOXIC AND HYPERCAPNIC Diagnosis Discharge Diagnosis (1) Acute on chronic respiratory failure with hypoxia and hypercapnia: Status: Chronic Code(s): J96.21 - Acute and chronic respiratory failure with hypoxia; J96.22 - Acute and chronic respiratory failure with hypercapnia (2) Acute decompensated heart failure: Status: Acute Code(s): I50.9 - Heart failure, unspecified (3) COPD with acute exacerbation: Status: Chronic Code(s): J44.1 - Chronic obstructive pulmonary disease with (acute) exacerbation (4) Lactic acidosis: Status: Acute Code(s): E87.20 - Acidosis, unspecified (5) Leukocytosis: Status: Acute Code(s): D72.829 - Elevated white blood cell count, unspecified (6) Hyperglycemia: Status: Acute Code(s): R73.9 - Hyperglycemia, unspecified Plan For 66-year-old female was admitted with severe shortness of breath with history of COPD on 2 L of baseline oxygen requirement. Acute on chronic hypoxic and hypercapnic respiratory failure secondary to acute exacerbation of COPD/decompensated heart failure Patient on 2 L of oxygen in the morning but currently on 4 L of oxygen. Mild tachypneic. Continue BiPAP. Discussed with service employee. 10/11: Patient recommended AVAPS with tidal volume 450 mill, rate 12 PEEP 8. Patient work only for 3 hours. 10/12: Patient has BiPAP at home and oxygen. Acute on chronic decompensated heart failure, HFpEF: Patient was started on Lasix 40 mg IV every 8 hourly and preablation drop blood pressure is systolic 50s to 60s therefore Lasix is on hold. 2D echo done the left ventricular ejection fraction is 55 %. Apical hypokinesis. The left atrium is mildly enlarged. Moderate (2+) eccentric mitral valve insufficiency. Chest x-ray image reviewed shows opacities in both lower lungs with features of congestion and heart failure. First troponin is 74 but second 1 normal. BNP very high. Does not show up trending troponin therefore ACS ruled out. 10/12: Patient advised to follow-up with rigging supervisor Dr. Palmer . Has valvular heart disease with history of Takotsubo cardiomyopathy with apical hypokinesis. Hypotension/undifferentiated shock exact etiology unclear: Initially it was thought to be hemodynamic fluid shift due to Lasix but did not improve therefore norepinephrine drip was started. Patient has a right IJ line. Mild extravasation and was treated with phentolamine but does not seem to be deep, necrotic or thrombosis on exam. Lasix discontinued. No fever. 10/11: Patient off Levophed drip. If she maintains her blood pressure, plan to transfer to PCU 10/12: Discontinued right IJ TLC. COPD exacerbation: On BiPAP as needed as needed. Recently decannulate tracheostomy. On Solu-Medrol. On a scheduled DuoNeb. Respiratory panel COVID and flu antigen are negative. On Mucinex incentive spirometry NPO. 10/11: 1 out of 2 blood culture shows coagulase-negative staph possible contamination. Vancomycin is stopped in the morning. Suspicion of aspiration pneumonia with history of dysphagia: Chest x-ray showed bilateral infiltrates. Patient had PEG tube in the past removed in August [address] Elizabeth. N.p.o. in the morning entolimod with speech therapist. GI is consulted. A1c 5.0. Prediabetes and diabetes mellitus ruled out. Patient on vancomycin and Zosyn. 10/11: Patient had modified barium swallow found mild oropharyngeal dysphagia. P atient on diet as recommended by speech therapist. Patient refused for PEG tube. 10/12: Patient is discharged on 5 more days of Augmentin and prednisone 5 days of burst therapy 40 mg daily. Advised follow-up with Dr. Duarte. Seizure disorder -Continue Keppra and phenytoin GERD -Continue Protonix History of DVT -2016 -Off anticoagulation History of TIO -Unclear at this time if patient is compliant at baseline History of stroke/TIA -Continue aspirin -PT/OT/speech therapy consultation Hyperlipidemia -Continue home atorvastatin Depression/anxiety -Continue home medications Insomnia -Hold home Ambien with current respiratory status History of breast cancer -Carcinoma in situ -In remission History of alcohol abuse -Denies any current use History of tobacco abuse -In remission -Recommend ongoing cessation DVT prophylaxis -Lovenox 40 mg daily CODE STATUS -Full code Discharge medication reconciliation done. Discharge follow-up instructions completed. Discharge process discussed with the patient and all questions were answered to patient's satisfaction. Patient has oxygen BiPAP, DuoNeb and other medications at home. Total time spent, exact 35 minutes on discharge meds reconciliation, examination, coordination of care with nurses and ancillary staff, review of imaging and blood test and discussion with the patient on follow-up instructions. Medications at Discharge Home Medications aspirin 81 mg tablet 81 mg PO DAILY [facility] 11/03/20 cholecalciferol (vitamin D3) 25 mcg (1,000 unit) tablet (Vitamin D3) 25 mcg PO DAILY supplement 11/03/20 folic acid 1 mg tablet 1 mg PO DAILY supplement 11/03/20 pantoprazole 40 mg tablet,delayed release (Protonix) 40 mg PO DAILY GERD 11/03/20 albuterol sulfate 90 mcg/actuation aerosol inhaler (Ventolin HFA) 2 puff inhalation Q4H PRN shortness of breath or wheezing #18 grams 12/23/20 albuterol sulfate 1.25 mg/3 mL solution for nebulization 1.25 mg inhalation Q4H PRN Shortness Of Breath Or Wheezing 06/15/21 mecobalamin (vitamin B12) 5,000 mcg disintegrating tablet 5,000 mcg PO DAILY 07/07/21 acetaminophen 650 mg/20.3 mL oral solution 650 mg (20.3 mL) G-tube Q4H PRN PRN Pain 1-10 Or Fever #0 mL 07/25/22 albuterol sulfate 2.5 mg/3 mL (0.083 %) solution for nebulization 2.5 mg (3 mL) inhalation Q2H PRN PRN Dyspnea, wheezing #0 mL 07/25/22 famotidine 20 mg tablet 20 mg G-tube BID #0 tabs 07/25/22 ipratropium 0.5 mg-albuterol 3 mg (2.5 mg base)/3 mL nebulization soln 3 ml inhalation Q6HWA.RT #0 mL 07/25/22 lactose-reduced food with fiber 0.06 gram-1.5 kcal/mL oral liquid (Jevity 1.5 Kelvin) 240 ml G-tube 0900,1200,1600,1900 #0 mL 07/25/22 oxycodone 5 mg tablet 5 mg G-tube Q6H PRN PRN Pain Score 6-10 3 days #0 tabs 07/25/22 potassium chloride 20 mEq/15 mL oral liquid 40 meq (30 mL) G-tube BID #0 mL 07/25/22 sennosides 8.6 mg-docusate sodium 50 mg tablet (Stool Softener-Stimulant Laxative) 2 tab G-tube BID #0 tabs 07/25/22 zolpidem 5 mg tablet (Ambien) 5 mg PO QHS PRN insomnia 30 days #30 tabs 07/25/22 aripiprazole 2 mg tablet (Abilify) 2 mg PO DAILY 08/25/22 atorvastatin 40 mg tablet 40 mg PO QHS 08/25/22 metoprolol succinate 25 mg tablet,extended release 24 hr 25 mg PO DAILY 08/25/22 fluticasone fur. 100 mcg-umeclid 62.5 mcg-vilant 25 mcg inhalat.powder 1 inh inhalation DAILY COPD #60 ea 08/28/22 amoxicillin 500 mg-potassium clavulanate 125 mg tablet 1 tab PO Q12H #14 tabs 10/12/22 buspirone 5 mg tablet 10 mg PO BID #0 tabs 10/12/22 furosemide 10 mg/mL oral solution 20 mg (2 mL) PO BIDLX #0 mL 10/12/22 guaifenesin 1,200 mg tablet, extended release 12 hr (Mucus Relief ER) 1,200 mg PO BID 7 days #14 tabs 10/12/22 levetiracetam 100 mg/mL oral solution 500 mg (5 mL) PO BID #0 mL 10/12/22 phenytoin 100 mg/4 mL oral suspension 100 mg (4 mL) PO Q8 30 days #360 mL 10/12/22 prednisone 20 mg tablet 40 mg PO DAILY 5 days #10 tabs 10/12/22 quetiapine 100 mg tablet 50 mg PO BID #0 tabs 10/12/22 Physical Exam Narrative Patient blood pressure is controlled. She states is swallowing normal does not have dysphagia sensation. Maintaining her blood pressure. Patient has oxygen DuoNeb nebulization and BiPAP machine at home. She has Trelegy. Physical exam General: Alert, Oriented x3, Cooperative HEENT: Atraumatic, PERRLA, EOMI, Normocephalic Oral: Oral mucosa moist. No Gingival or Mucosal Lesions/ Ulcerations Neck: Right IJ line. Supple, No JVD, Negative Carotid Bruits Lungs: Air entry diminished in bilateral lung bases. Bibasilar expiratory rhonchi occasionally improved. Cardiovascular: Regular rate, Regular Rhythm, Normal S1, Normal S2, No murmurs Abdomen: Bowel Sounds Present, Soft, Non Tender, Non-Distended : No renal angle tenderness. No suprapubic tenderness. Extremities: No edema, Capillary Refill Less than 3 Seconds Skin: no necrotic skin or no hematoma. No tenderness. Musculoskeletal: No Tenderness to Palpation of Joints or Extremities. Muscle strength 4+/5 at major joint Neurological: Cranial nerves II-XII grossly intact, DTR 2+/4 and Symmetrical, Neuro grossly intact Psych/Mental Status: Flat affect Medical Records Data Medical Nutrition Assessment Dietitian: Malnutrition Criteria Met Start: 10/09/22 11:29 Freq: Status: Active Protocol: Document 10/10/22 09:49 AG (Rec: 10/10/22 09:49 AG [id number]) Nutrition Malnutrition Evidence of Malnutrition Exists Yes Malnutrition (severe): Chronic Evidenced By Weight Loss (Severe),Physical Changes (Moderate) Clinical Problem Chronic Disease or Condition Related Malnutrition Etiology severe, chronic malnutrition related to inadequate energy intake Signs/Symptoms as evidenced by unintentional 44.6#/27% wt loss x 13 months; moderate muscle wasting/fat loss evident per physical exam in orbital, clavicle, acromion, and temporal areas. Status Active Problem Recommendation Dietitian Recommendations/Changes will monitor PO intake of regular diet as established and add sodium restriction as indicated; will order ensure plus high protein 120mL 4x/day w/ medpass for additional nutrition if consumed. Weight / BMI Weight Weight: 118 lb 2.684 oz Body Mass Index (BMI) 20.9 ABG / Lab / Microbiology Data Result Diagrams: 10/12/22 06:05 10/12/22 06:05 Laboratory: Laboratory Results - last 24 hr 10/11/22 13:17: POC Glucose 161 H 10/11/22 16:34: POC Glucose 108 H 10/11/22 23:50: Vancomycin Trough 2.4 L 10/12/22 00:54: POC Glucose 132 H 10/12/22 06:05: WBC 8.0, RBC 4.09 L, Hgb 11.6 L, Hct 37.3, MCV 91.2, MCH 28.4, MCHC 31.1 L, RDW Std Deviation 46.6 H, RDW Coeff of Deonte 13.9, Plt Count 188, MPV 11.0, Immature Gran % (Auto) 0.500, Neut % (Auto) 73.6 H, Lymph % (Auto) 18.8 L, [place] % (Auto) 7.0, Eos % (Auto) 0.0, Baso % (Auto) 0.1, Absolute Neuts (auto) 5. 9, Absolute Lymphs (auto) 1.50, Nucleated RBC % 0 10/12/22 06:05: Sodium 139, Potassium 3.4 L, Chloride 107, Carbon Dioxide 30.0, Anion Gap 2 L, BUN 22 H, Creatinine 0.68, Estim Creat Clear Calc 45.16, Est GFR (MDRD) Af Amer 110, Est GFR (MDRD) Non-Af 91, BUN/Creatinine Ratio 32.2 H, Glucose 106, Calcium 8.6 10/12/22 06:15: POC Glucose 114 H 10/12/22 11:22: Random Vancomycin 15.1 H Microbiology: Microbiology 10/09/22 00:30 Blood Culture (Wb) - Right Wrist Blood Culture - Preliminary No growth in 48 hours. 10/09/22 00:16 Blood Culture (Wb) - Anticubital Right Bacteria Detection (PCR) - Final Coag Negative Staph 10/09/22 00:16 Blood Culture (Wb) - Anticubital Right Blood Culture - Preliminary Coag Negative Staph 10/09/22 06:25 Urine Catheter - Catheter Urine Culture - Final Culture exhibits no growth. 10/09/22 09:30 Urine Catheter - Fortune Legionella Antigen - Final 10/09/22 09:30 Urine Catheter - Fortune Streptococcus pneumoniae Antigen (M - Final 10/08/22 23:20 Nasal Secretion SARS-CoV-2 & FLU Antigen (Rapid) - Final D/C Instructions Discharge Diet: No restrictions (Distant supervision, alternate bites and sips, sips one at a time) Weight Bearing Status: Weight bearing as tolerated Call your doctor if you observe: Fever of 101 or Higher, Coldness, Increased Pain, Numbness or Tingling, Change in Color, Inability to urinate, Inability to have a bowel movement, Using more than 1 pad per hour, Shortness of breath, Dizziness, Fainting spells, Swelling in the ankles, Chest pain, Prolonged hiccupping, Increased palpitations (irregular heartbeat) and Calf discomfort When: IN 2 WEEKS Meaningful Use Info Meaningful Use Diagnoses (Choose all that apply): None applicable Discharge Plan Admission Admit Date/Time: 10/09/22 00:51 Primary Reason for Your Visit: Acute on chronic combined respiratory failure Attending Provider: Tex Agee Primary Care Provider: Maryam Pineda Consulting Providers: Francesca Anne ; Mike Duarte ; Anurag Flannery ; Omid Wahl ; Samuel Minor ; Ema Stevens 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 Discharge Orders/Prescriptions Prescriptions: New Mucus Relief ER 1,200 mg Tablet Extended Release 12hr 1,200 mg PO BID 7 Days Qty: 14 0RF prednisone 20 mg tablet 40 mg PO DAILY 5 Days Qty: 10 0RF Continued albuterol sulfate [Ventolin HFA] 90 mcg/actuation HFA aerosol inhaler 2 puff inhalation Q4H PRN (Reason: shortness of breath or wheezing) Qty: 18 6RF mecobalamin (vitamin B12) 5,000 mcg tablet,disintegrating 5,000 mcg PO DAILY atorvastatin 40 mg tablet 40 mg PO QHS metoprolol succinate 25 mg tablet extended release 24 hr 25 mg PO DAILY aripiprazole [Abilify] 2 mg tablet 2 mg PO DAILY pantoprazole [Protonix] 40 mg Tablet,Delayed Release (Dr/Ec) 40 mg PO DAILY folic acid 1 mg Tablet 1 mg PO DAILY aspirin 81 mg Tablet 81 mg PO DAILY cholecalciferol (vitamin D3) [Vitamin D3] 25 mcg (1,000 unit) Tablet 25 mcg PO DAILY albuterol sulfate 1.25 mg/3 mL Solution For Nebulization 1.25 mg INHALATION Q4H PRN (Reason: Shortness Of Breath Or Wheezing) acetaminophen 650 mg/20.3 mL Solution 650 mg G-tube Q4H PRN PRN (Reason: Pain 1-10 Or Fever) Qty: 0 0RF ipratropium-albuterol 0.5 mg-3 mg(2.5 mg base)/3 mL Solution For Nebulization 3 ml inhalation Q6HWA.RT Qty: 0 0RF albuterol sulfate 2.5 mg /3 mL (0.083 %) Solution For Nebulization 2.5 mg inhalation Q2H PRN PRN (Reason: Dyspnea, wheezing) Qty: 0 0RF sennosides-docusate sodium [Stool Softener-Stimulant Laxat] 8.6-50 mg Tablet 2 tab G-tube BID Qty: 0 0RF potassium chloride 20 mEq/15 mL Liquid 40 meq G-tube BID Qty: 0 0RF famotidine 20 mg Tablet 20 mg G-tube BID Qty: 0 0RF oxycodone 5 mg Tablet 5 mg G-tube Q6H PRN PRN (Reason: Pain Score 6-10) 3 Days Qty: 0 0RF Jevity 1.5 Kelvin 0.06 gram-1.5 kcal/mL Liquid 240 ml G-tube 0900,1200,1600,1900 Qty: 0 0RF zolpidem [Ambien] 5 mg tablet 5 mg PO QHS PRN (Reason: insomnia) 30 Days Qty: 30 0RF amoxicillin-pot clavulanate 500-125 mg tablet 1 tab PO Q12H Qty: 14 0RF mqgcmnwvttk-awwbsavtz-gpiwzbhz 100-62.5-25 mcg blister with device 1 inh inhalation DAILY Qty: 60 11RF Changed buspirone 5 mg Tablet 10 mg PO BID Qty: 0 0RF furosemide 10 mg/mL Solution 20 mg PO BIDLX Qty: 0 0RF quetiapine 100 mg Tablet 50 mg PO BID Qty: 0 0RF levetiracetam 100 mg/mL Solution 500 mg PO BID Qty: 0 0RF phenytoin 100 mg/4 mL Suspension 100 mg PO Q8 30 Days Qty: 360 2RF Referrals / Follow Up: Marquise Palmer MD [Med Staff - Active Staff] - Within 1 Month Mike Duarte MD [Med Staff - Active Staff] - Within 1 Month Maryam Pineda MD [Primary Care Provider] - Disposition Disposition (needs filled in before D/C Order can be placed): Home Health Service Charges/Coding Visit Charges Inpatient E&M: 81301 Disch Hosp >30min
[2022-10-12 12:45] LABS: Bedside Glucose 122 mg/dL (74-106)
--- NOTE | 2022-10-12 13:07 | CASEMGMT ---
Addendum entered by Carla Azevedo 10/12/22 14:14: FINESSE LALA updated by [facility] that patient was accepted with planned start of care for 10/14/22. FINESSE LALA updated the patient. Patient had no further question or concerns at this time. Addendum entered by Carla Azevedo 10/12/22 13:20: FINESSE LALA called daughter Ameena to verify address at discharge. Per Ameena, patient will be staying with grandson at [address] [place] [address]. FINESSE LALA updated [employer] of address for respiratory therapist to see patient tomorrow. Original Note: FINESSE LALA in to discuss discharge planning with patient. FINESSE LALA discussed needs with patient and patient is agreeable to [facility]. Patient declines list of C agencies and prefers [facility]. FINESSE LALA called [facility] and made referral, awaiting acceptance. CM will continue to follow this patient and plan for a safe discharge.
--- NOTE | 2022-10-12 14:03 | PCM.RX.CS ---
Consult Pharmacy has been consulted to manage selected antiobiotic: Vancomycin Type of Consult: Follow-up Labs: Sodium 139 mmol/L (136-145) 10/12/22 06:05 Potassium 3.4 mmol/L (3.5-5.1) L 10/12/22 06:05 Chloride 107 mmol/L (98-107) 10/12/22 06:05 Carbon Dioxide 30.0 mmol/L (21.0-32.0) 10/12/22 06:05 Anion Gap 2 (5-15) L 10/12/22 06:05 BUN 22 mg/dL (7-18) H 10/12/22 06:05 Creatinine 0.68 mg/dL (0.55-1.02) 10/12/22 06:05 Est GFR (MDRD) Af Amer 110 mL/min (>60) 10/12/22 06:05 Est GFR (MDRD) Non-Af 91 mL/min (>60) 10/12/22 06:05 BUN/Creatinine Ratio 32.2 RATIO (10-20) H 10/12/22 06:05 Glucose 106 mg/dL (74-106) 10/12/22 06:05 Vancomycin Trough 2.4 ug/mL (5.0-15.0) L 10/11/22 23:50 Random Vancomycin 15.1 ug/mL (0.0-15.0) H 10/12/22 11:22 Microbiology: Microbiology 10/09/22 00:30 Blood Culture (Wb) - Right Wrist Blood Culture - Preliminary No growth in 48 hours. 10/09/22 00:16 Blood Culture (Wb) - Anticubital Right Bacteria Detection (PCR) - Final Coag Negative Staph 10/09/22 00:16 Blood Culture (Wb) - Anticubital Right Blood Culture - Preliminary Coag Negative Staph 10/09/22 06:25 Urine Catheter - Catheter Urine Culture - Final Culture exhibits no growth. 10/09/22 09:30 Urine Catheter - Fortune Legionella Antigen - Final 10/09/22 09:30 Urine Catheter - Fortune Streptococcus pneumoniae Antigen (M - Final 10/08/22 23:20 Nasal Secretion SARS-CoV-2 & FLU Antigen (Rapid) - Final Goal Trough: 15-20 mcg/mL Pharmacy Plan for Drug Dosing: VANCOMYCIN LEVEL RECEIVED Current Vancomycin Dose: 1000MG IV Q24HR Number of Doses Received: 3 Vancomycin Level: 15.1 Hours Since Last Dose: 10.5HR Renal Function: 0.68 Renal Function Trend: STABLE Lab/Micro: NO NEW RESULTS Vancomycin Plan/Comments: The patient had a trough drawn overnight which resulted in a value of 2.4 (goal 15-20). At that time, a random trough was ordered for ~12hr from last administered dose. This level resulted in a value of 15.1 (10.5hr from last dose). With this in mind, the patient's trough of 2.4 may have been accurate. The patient would qualify for Q12hr dosing. Will change dose to 500mg IV Q12hr to start this afternoon, 10/12 @1500. Pending Level: 10/14/22 @0230 Pharmacy Service will continue to monitor and adjust dosing as required.
--- NOTE | 2022-10-12 15:15 | PHA.DC.MR ---
Pharmacy Service has performed discharge medication reconciliation for this patient. The patient's discharge medication list was reviewed for discrepancies and discrepancies were resolved. Unable to substance abuse counselor, medications reviewed. Home Medications aspirin 81 mg tablet 81 mg PO DAILY heart health 11/03/20 cholecalciferol (vitamin D3) 25 mcg (1,000 unit) tablet (Vitamin D3) 25 mcg PO DAILY supplement 11/03/20 folic acid 1 mg tablet 1 mg PO DAILY supplement 11/03/20 pantoprazole 40 mg tablet,delayed release (Protonix) 40 mg PO DAILY GERD 11/03/20 albuterol sulfate 90 mcg/actuation aerosol inhaler (Ventolin HFA) 2 puff inhalation Q4H PRN shortness of breath or wheezing #18 grams 12/23/20 albuterol sulfate 1.25 mg/3 mL solution for nebulization 1.25 mg inhalation Q4H PRN Shortness Of Breath Or Wheezing 06/15/21 mecobalamin (vitamin B12) 5,000 mcg disintegrating tablet 5,000 mcg PO DAILY 07/07/21 acetaminophen 650 mg/20.3 mL oral solution 650 mg (20.3 mL) G-tube Q4H PRN PRN Pain 1-10 Or Fever #0 mL 07/25/22 albuterol sulfate 2.5 mg/3 mL (0.083 %) solution for nebulization 2.5 mg (3 mL) inhalation Q2H PRN PRN Dyspnea, wheezing #0 mL 07/25/22 famotidine 20 mg tablet 20 mg G-tube BID #0 tabs 07/25/22 ipratropium 0.5 mg-albuterol 3 mg (2.5 mg base)/3 mL nebulization soln 3 ml inhalation Q6HWA.RT #0 mL 07/25/22 lactose-reduced food with fiber 0.06 gram-1.5 kcal/mL oral liquid (Jevity 1.5 Kelvin) 240 ml G-tube 0900,1200,1600,1900 #0 mL 07/25/22 oxycodone 5 mg tablet 5 mg G-tube Q6H PRN PRN Pain Score 6-10 3 days #0 tabs 07/25/22 potassium chloride 20 mEq/15 mL oral liquid 40 meq (30 mL) G-tube BID #0 mL 07/25/22 sennosides 8.6 mg-docusate sodium 50 mg tablet (Stool Softener-Stimulant Laxative) 2 tab G-tube BID #0 tabs 07/25/22 zolpidem 5 mg tablet (Ambien) 5 mg PO QHS PRN insomnia 30 days #30 tabs 07/25/22 aripiprazole 2 mg tablet (Abilify) 2 mg PO DAILY 08/25/22 atorvastatin 40 mg tablet 40 mg PO QHS 08/25/22 metoprolol succinate 25 mg tablet,extended release 24 hr 25 mg PO DAILY 08/25/22 fluticasone fur. 100 mcg-umeclid 62.5 mcg-vilant 25 mcg inhalat.powder 1 inh inhalation DAILY COPD #60 ea 08/28/22 amoxicillin 500 mg-potassium clavulanate 125 mg tablet 1 tab PO Q12H #14 tabs 10/12/22 buspirone 5 mg tablet 10 mg PO BID #0 tabs 10/12/22 furosemide 10 mg/mL oral solution 20 mg (2 mL) PO BIDLX #0 mL 10/12/22 guaifenesin 1,200 mg tablet, extended release 12 hr (Mucus Relief ER) 1,200 mg PO BID 7 days #14 tabs 10/12/22 levetiracetam 100 mg/mL oral solution 500 mg (5 mL) PO BID #0 mL 10/12/22 phenytoin 100 mg/4 mL oral suspension 100 mg (4 mL) PO Q8 30 days #360 mL 10/12/22 prednisone 20 mg tablet 40 mg PO DAILY 5 days #10 tabs 10/12/22 quetiapine 100 mg tablet 50 mg PO BID #0 tabs 10/12/22
== END 2022-10-12 17:01 | disposition home health service (06) | DRG 291 ==
LOC: ED 10-09 01:30 → ICU 10-09 03:01 → PCU 10-09 15:19 → ICU 10-09 18:04 → PCU 10-11 11:24
PROVIDERS: Admitting Provider Internal Medicine; Emergency Provider Emergency Medicine; PCP Internal Medicine; Visit Provider Internal Medicine
DX: I11.0 Hypertensive heart disease with heart failure (principal); J96.21 Acute and chronic respiratory failure with hypoxia; J69.0 Pneumonitis due to inhalation of food and vomit; E43 Unspecified severe protein-calorie malnutrition; I50.43 Acute on chronic combined systolic (congestive) and diastolic (congestive) heart failure; J96.22 Acute and chronic respiratory failure with hypercapnia; J44.1 Chronic obstructive pulmonary disease with (acute) exacerbation; E87.20 Acidosis, unspecified; N39.0 Urinary tract infection, site not specified; G40.909 Epilepsy, unspecified, not intractable, without status epilepticus; I42.8 Other cardiomyopathies; I34.0 Nonrheumatic mitral (valve) insufficiency; F32.A Depression, unspecified; K21.9 Gastro-esophageal reflux disease without esophagitis; E78.5 Hyperlipidemia, unspecified; I95.2 Hypotension due to drugs; G47.33 Obstructive sleep apnea (adult) (pediatric); B95.7 Other staphylococcus as the cause of diseases classified elsewhere; R73.9 Hyperglycemia, unspecified; Z79.82 Long term (current) use of aspirin; Z79.51 Long term (current) use of inhaled steroids; Z87.891 Personal history of nicotine dependence; G47.00 Insomnia, unspecified; R13.12 Dysphagia, oropharyngeal phase; Z86.718 Personal history of other venous thrombosis and embolism; Z86.73 Personal history of transient ischemic attack (TIA), and cerebral infarction without residual deficits; Z85.3 Personal history of malignant neoplasm of breast
CPT/HCPCS: 36415; 51702; 71045; 71275; 74230; 80048; 80053; 80202; 81001; 82962; 83036; 83605; 83735; 83880; 84100; 84145; 84443; 84484; 85025; 85027; 87040; 87086; 87149; 87428; 87449; 87641; 92526; 92610; 92611; 93005; 93306; 94002; 94003; 94640; 94668; 94762; 97162; 97165; 97530; 97802; 99252; 99285; J7040; J7050; Q9957; Q9967; A4216; C1751; C8929; G0463; J1940; J2760

== ENCOUNTER 2022-11-09 01:43 | Inpatient (IN) | payer MEDICARE, SELFPAY ==
[2022-11-09] VITALS (52 sets, daily range): BP systolic 75–123; BP diastolic 32–93; PULSE 72–99; RESP 12–28; TEMP 36.1–36.8; O2SAT 80–100; BMI 21.7
--- NOTE | 2022-11-09 02:00 | RAD_ITS ---
INDICATION: sob EXAMINATION/TECHNIQUE: X-RAY - XR Chest 1 View COMPARISON: 10/11/2022. FINDINGS: LINES/DEVICES: None. LUNGS: No consolidation or evidence of an effusion. No evidence of edema or a pneumothorax. Hyperinflation of the lungs which may represent COPD. MEDIASTINUM AND CARDIOVASCULAR STRUCTURES: Cardiac silhouette is normal in size and contour. Mediastinum is unremarkable. BONES AND SOFT TISSUES: No acute abnormality. RAD/Chest 1 View (Portable) IMPRESSION: No evidence of acute cardiopulmonary disease. Electronically Signed: Pablo Berry DO at 2:42 EDT ,
--- NOTE | 2022-11-09 02:00 | EKG12_ITS ---
Test Reason : SOB Blood Pressure : / mmHG Vent. Rate : 081 BPM Atrial Rate : 081 BPM P-R Int : 114 ms QRS Dur : 082 ms QT Int : 364 ms P-R-T Axes : 076 041 076 degrees QTc Int : 422 ms Normal sinus rhythm with sinus arrhythmia Possible Inferior infarct , age undetermined Abnormal ECG Confirmed by MOISES MENDES, LINDSEY ([id number]), managing editor NICOLE ARANGO ([id number]) on 11/10/2022 8:15:49 AM Referred By: PRISCA Confirmed By:LINDSEY DE LEON MD
--- NOTE | 2022-11-09 02:12 | EX.ED.DYSGE1 ---
HPI History of Present Illness Chief Complaint: Confusion Informant: patient and EMS Narrative Narrative: Brought in by EMS from home for increasing confusion. Patient history of COPD remote tobacco she reports she is supposed to be on 2 L of oxygen however does not wear all the time. States been coughing for a while cannot tell me when. She does admit to history of CHF. However denies any leg swelling. She was found to be hypoxic brought in here to the ER she was 80%. Denies chest or abdominal pain. Patient hypotensive in the 80s on arrival states her blood pressure runs low and per nursing previous evaluations with low blood pressure. Prior similar symptoms: Yes PFSH [facility] Medical History Anxiety and depression Aspiration pneumonia due to gastric secretions Benign neoplasm of colon Carcinoma in situ of breast Chronic anemia COPD (chronic obstructive pulmonary disease) Daytime hypersomnia Diastolic CHF Essential (primary) hypertension GERD (gastroesophageal reflux disease) Hemorrhagic cerebrovascular accident (CVA) (02/09/17) History of alcohol abuse History of DVT of lower extremity (02/11/17) History of non-ST elevation myocardial infarction (NSTEMI) (02/03/17) Hyperlipidemia Insomnia Ischemic cerebrovascular accident (CVA) (02/06/17) Non-ischemic cardiomyopathy Non-rheumatic mitral regurgitation TIO (obstructive sleep apnea) Secondary pulmonary arterial hypertension Takotsubo cardiomyopathy (06/17/21) Home Medications aspirin 81 mg tablet 81 mg PO DAILY heart health 11/03/20 [History Last Taken Unknown] cholecalciferol (vitamin D3) 25 mcg (1,000 unit) tablet (Vitamin D3) 25 mcg PO DAILY supplement 11/03/20 [History Last Taken Unknown] folic acid 1 mg tablet 1 mg PO DAILY supplement 11/03/20 [History Last Taken Unknown] pantoprazole 40 mg tablet,delayed release (Protonix) 40 mg PO DAILY GERD 11/03/20 [History Last Taken Unknown] albuterol sulfate 90 mcg/actuation aerosol inhaler (Ventolin HFA) 2 puff inhalation Q4H PRN shortness of breath or wheezing #18 grams 12/23/20 [Rx Last Taken Unknown] albuterol sulfate 1.25 mg/3 mL solution for nebulization 1.25 mg inhalation Q4H PRN Shortness Of Breath Or Wheezing 06/15/21 [History Last Taken Unknown] mecobalamin (vitamin B12) 5,000 mcg disintegrating tablet 5,000 mcg PO DAILY 07/07/21 [History Last Taken Unknown] albuterol sulfate 2.5 mg/3 mL (0.083 %) solution for nebulization 2.5 mg (3 mL) inhalation Q2H PRN PRN Dyspnea, wheezing #0 mL 07/25/22 [Rx Last Taken Unknown] ipratropium 0.5 mg-albuterol 3 mg (2.5 mg base)/3 mL nebulization soln 3 ml inhalation Q6HWA.RT #0 mL 07/25/22 [Rx Last Taken Unknown] oxycodone 5 mg tablet 5 mg G-tube Q6H PRN PRN Pain Score 6-10 3 days #0 tabs 07/25/22 [Rx Last Taken Unknown] potassium chloride 20 mEq/15 mL oral liquid 40 meq (30 mL) G-tube BID #0 mL 07/25/22 [Rx Last Taken Unknown] sennosides 8.6 mg-docusate sodium 50 mg tablet (Stool Softener-Stimulant Laxative) 2 tab G-tube BID #0 tabs 07/25/22 [Rx Last Taken Unknown] zolpidem 5 mg tablet (Ambien) 5 mg PO QHS PRN insomnia 30 days #30 tabs 07/25/22 [Rx Last Taken Unknown] aripiprazole 2 mg tablet (Abilify) 2 mg PO DAILY 08/25/22 [History Last Taken Unknown] atorvastatin 40 mg tablet 40 mg PO QHS 08/25/22 [History Last Taken Unknown] metoprolol succinate 25 mg tablet,extended release 24 hr 25 mg PO DAILY 08/25/22 [History Last Taken Unknown] fluticasone fur. 100 mcg-umeclid 62.5 mcg-vilant 25 mcg inhalat.powder 1 inh inhalation DAILY COPD #60 ea 08/28/22 [Rx Last Taken Unknown] furosemide 10 mg/mL oral solution 20 mg (2 mL) PO BIDLX #0 mL 10/12/22 [Rx Last Taken Unknown] levetiracetam 100 mg/mL oral solution 500 mg (5 mL) PO BID #0 mL 10/12/22 [Rx Last Taken Unknown] phenytoin 100 mg/4 mL oral suspension 100 mg (4 mL) PO Q8 30 days #360 mL 10/12/22 [Rx Last Taken Unknown] Allergy/AdvReac Type Severity Reaction Status Date / Time tetanus and diphtheria Allergy Hives Verified 11/09/22 01:43 toxoids [tetanus & diphtheria toxoids] Family History Sister Cancer lung Father Cancer lung Mother Cancer lung Surgical History H/O: section History of bilateral cataract extraction History of cholecystectomy History of left heart catheterization (06/17/21) History of lumpectomy History of tracheostomy Hx of appendectomy S/P percutaneous endoscopic gastrostomy (PEG) tube placement Social History household members: none Smoking Status: Former smoker how long ago did patient quit smokin, 1pk/day second hand exposure: Yes alcohol intake: former substance use type: does not use what type of physical activity do you participate in: walking frequency: daily ROS ROS ED Review of Systems ROS Unobtainable: due to mental status Constitutional Constitutional ED: Denies fever(s) Cardiovascular Cardiovascular: Denies chest pain Respiratory/Chest Respiratory/Chest: Reports cough and dyspnea Gastrointestinal Gastrointestinal: Denies diarrhea or vomiting Neurologic Neurologic: Denies headache(s) EXAM Physical Exam Const Vital Signs: 11/09/22 01:44 11/09/22 02:00 11/09/22 02:50 Temperature 97 F L Temperature Source Temporal Pulse Rate 87 82 Respiratory Rate 19 H 15 Respiratory Pattern Normal Blood Pressure 82/63 L Blood Pressure Mean 69 Pulse Ox 80 93 Oxygen Delivery Method Nasal Cannula Venturi Mask Oxygen Flow Rate (L/min) 2 Fraction of Inspired Oxygen (FIO2) 30 11/09/22 03:24 Temperature Temperature Source Pulse Rate 75 Respiratory Rate 13 Respiratory Pattern Blood Pressure 75/32 L Blood Pressure Mean 46 Pulse Ox 98 Oxygen Delivery Method Bi-pap Oxygen Flow Rate (L/min) Fraction of Inspired Oxygen (FIO2) Positive well nourished and well developed Constitutional Narrative: 8 L vent mask, poor historian following commands no respiratory distress General Appearance ED: well developed and NAD HEENT Reports moist mucous membranes normocephalic and atraumatic Eyes PERRL, EOMs intact bilaterally and conjunctivae normal General Eye ED: Yes normal appearance of both eyes Neck no lymphadenopathy and supple General: Negative for tenderness Chest Wall Chest: Negative for tenderness Resp Resp Narrative: Diminished breath sounds at the bases Effort and Inspection: symmetric chest movement; Negative for respiratory distress Cardio regular rate, regular rhythm and no murmurs Peripheral Pulses: pulses 2+ throughout GI normal to inspection, nondistended, normoactive bowel sounds and non-tender Palpation: Negative for guarding or rebound tenderness present Back/Spine no CVA tenderness and no thoracic nor lumbar tenderness Extremity normal to inspection General Extremety ED: Negative for edema or tenderness General Extremity: Negative for edema Neuro oriented x3 and no sensory deficits noted Sensorium / Orientation: awake and alert Skin no rashes or lesions noted and no wounds Sepsis Attestation Sepsis Attestation: Sepsis Ruled Out Date exam was performed: 11/09/22 MDM MDM MDM Narrative Medical decision making narrative: Interventions / MDM: Differential diagnosis: COPD, hypercapnia, hypoxia, noncompliance Diagnosis considered but do not suspect: N/A My EKG interpretation: Sinus rate of 81, no ST changes T wave version aVL nonspecific. Imaging independently reviewed and interpreted by myself: Chest x-ray 1 view: COPD lungs External documents reviewed: Reviewing hospital records prolonged admission June to July initial concern for seizure activity intervening hypercapnic respiratory failure was on a ventilator ended up with a trach and PEG. Test considered but not ordered:N/A ED course: Patient slightly somnolent alert orient x3 she was hypoxic. Sepsis work-up initiated due to her hypotension, gentle fluids due to heart failure history. ABG with a PCO2 of 92. She ordered for BiPAP. Re-evaluation: On BiPAP improving blood sugar improving with IV fluids. Chest x-ray negative. Urine and plus bacteria mild leukocytes. White count 6.4 lactic acid normal. Procalcitonin normal. Creatinine 0.78. Patient acute hypoxic hypercapnic respiratory failure on BiPAP currently stable. I discussed with hospitalist Dr. Buitrago for admission to the ICU. We will hold antibiotics at this time. Disposition discussed with patient/family/significant other: Patient and significant other Case discussed with consulting clinician: N/A Lab Data Attestation: I reviewed the patient's lab results. Labs: Laboratory Results - last 24 hr 11/09/22 11/09/22 11/09/22 01:58 01:58 01:58 WBC 6.4 RBC 3.98 L Hgb 11.3 L Hct 37.6 MCV 94.5 MCH 28.4 MCHC 30.1 L RDW Std Deviation 44.9 H RDW Coeff of Deonte 13.0 Plt Count 182 MPV 9.9 Immature Gran % (Auto) 0.300 Neut % (Auto) 52.5 Lymph % (Auto) 32.6 [place] % (Auto) 8.1 Eos % (Auto) 5.7 H Baso % (Auto) 0.8 Absolute Neuts (auto) 3.4 Absolute Lymphs (auto) 2.10 Nucleated RBC % 0 PT 12.4 INR 0.9 APTT 27.6 Sodium Potassium Chloride Carbon Dioxide Anion Gap BUN Creatinine Estim Creat Clear Calc Est GFR (MDRD) Af Amer Est GFR (MDRD) Non-Af BUN/Creatinine Ratio Glucose Lactic Acid Calcium Total Bilirubin AST ALT Alkaline Phosphatase Troponin I High Sens B-Natriuretic Peptide 102.6 H Total Protein Albumin Globulin Albumin/Globulin Ratio Procalcitonin Urine Color Urine Clarity Urine pH Ur Specific [place] Urine Protein Urine Glucose (UA) Urine Ketones Urine Occult Blood Urine Nitrite Urine Bilirubin Urine Urobilinogen Ur Leukocyte Esterase Urine RBC Urine WBC Ur Squamous Epith Cells Urine Bacteria Urine Mucus 11/09/22 11/09/22 11/09/22 01:58 01:58 02:15 WBC RBC Hgb Hct MCV MCH MCHC RDW Std Deviation RDW Coeff of [place] Plt Count MPV Immature Gran % (Auto) Neut % (Auto) Lymph % (Auto) [place] % (Auto) Eos % (Auto) Baso % (Auto) Absolute Neuts (auto) Absolute Lymphs (auto) Nucleated RBC % PT INR APTT Sodium 143 Potassium 5.1 Chloride 103 Carbon Dioxide 38.0 H Anion Gap 2 L BUN 29 H Creatinine 1.15 H Estim Creat Clear Calc 38.73 Est GFR (MDRD) Af Amer 60 Est GFR (MDRD) Non-Af 50 L BUN/Creatinine Ratio 25.2 H Glucose 97 Lactic Acid 0.7 Calcium 9.0 Total Bilirubin 0.20 AST 647 H ALT 306 H Alkaline Phosphatase 357 H Troponin I High Sens 15 B-Natriuretic Peptide Total Protein 6.9 Albumin 3.3 Globulin 3.6 Albumin/Globulin Ratio 0.9 Procalcitonin < 0.01 Urine Color Urine Clarity Urine pH Ur Specific [place] Urine Protein Urine Glucose (UA) Urine Ketones Urine Occult Blood Urine Nitrite Urine Bilirubin Urine Urobilinogen Ur Leukocyte Esterase Urine RBC Urine WBC Ur Squamous Epith Cells Urine Bacteria Urine Mucus 11/09/22 02:20 WBC RBC Hgb Hct MCV MCH MCHC RDW Std Deviation RDW Coeff of [place] Plt Count MPV Immature Gran % (Auto) Neut % (Auto) Lymph % (Auto) [place] % (Auto) Eos % (Auto) Baso % (Auto) Absolute Neuts (auto) Absolute Lymphs (auto) Nucleated RBC % PT INR APTT Sodium Potassium Chloride Carbon Dioxide Anion Gap BUN Creatinine Estim Creat Clear Calc Est GFR (MDRD) Af Amer Est GFR (MDRD) Non-Af BUN/Creatinine Ratio Glucose Lactic Acid Calcium Total Bilirubin AST ALT Alkaline Phosphatase Troponin I High Sens B-Natriuretic Peptide Total Protein Albumin Globulin Albumin/Globulin Ratio Procalcitonin Urine Color Yellow Urine Clarity Clear Urine pH 5.0 Ur Specific [place] 1.015 Urine Protein 15 H Urine Glucose (UA) Normal Urine Ketones Negative Urine Occult Blood Negative Urine Nitrite Negative Urine Bilirubin Negative Urine Urobilinogen Normal Ur Leukocyte Esterase 25 H Urine RBC 0 SEEN Urine WBC 0-5 SEEN Ur Squamous Epith Cells 0 SEEN Urine Bacteria 1+ Urine Mucus 0 SEEN ABG Data ABG results: ABG 11/09/22 02:32 Specimen Type ART Sample Site R Radial pH 7.22 L Bicarbonate Actual 38.1 H Total CO2 41 Base Excess 10 H O2 Saturation 88 L ABG pCO2 92.8 H* ABG pO2 69 L Royal Test Positive O2 Delivery Device Cannula Liter Flow 2.0 Crit Call To/Read Back Yes Blood Gas Notified Whom dr kc Radiography Diagnostic Testing: Clinical Impression(s) from Imaging Studies Chest X-Ray 11/09/22 02:00 IMPRESSION: No evidence of acute cardiopulmonary disease. Electronically Signed: Pablo Berry DO at 2:42 EDT , Critical Care Time Critical Care Time: Yes Critical care time (excluding procedures): 30-74 minutes, Discussing w/Patient &/or Family/Petrophysical Engineer, Discussing w/Consultants, Arranging Admission or Transfer, Performing Direct Patient Care at Bedside and - (35 minutes) Discharge Plan Dx/Rx/DC Orders Clinical Impression: Acute on chronic respiratory failure with hypoxia and hypercapnia, COPD (chronic obstructive pulmonary disease), Noncompliance Disposition Disposition: Acute Care Hospital [facility]
[2022-11-09 02:21] LABS: Absolute Neutrophil Count 3.4 X10^3/uL (2.0-7.7); Basophil# 0.05 X10^3/uL; Basophil% 0.8 % (0-1); Eosinophil# 0.37 X10^3/uL; Eosinophils% 5.7 % (0-5); Hematocrit 37.6 % (37-47); Hemoglobin 11.3 g/dL (12.0-15.0); Lymphocyte % 32.6 % (19-41); Mean Corp Hgb Conc 30.1 g/dL (32-36); Mean Corpuscular Hgb 28.4 pg (27.0-32.0); Mean Corpuscular Volume 94.5 fL (81-99); Mean Platelet Vol. 9.9 fl (6.2-12.0); Monocyte# 0.52 X10^3/uL; Monocyte% 8.1 % (0-10); NRBC Flagged by Analyzer 0 % (0-5); Neutrophil # 3.38 X10^3/uL (2.7-7.7); Neutrophil % 52.5 % (47-70); Platelet Count 182 K/mm3 (150-450); RBC Distribution Width SD 44.9 fl (35.1-43.9); Red Blood Count 3.98 M/mm3 (4.2-5.4); White Blood Count 6.4 K/mm3 (4.4-11.0)
[2022-11-09 02:23] LABS: Mucous, Urine 0 SEEN /hpf (<or=2+); Red Blood Cells-Urine 0 SEEN /hpf (0-5); Squamous Epithelial Cells - UA 0 SEEN /hpf (5-10)
[2022-11-09 02:24] LABS: International Normalized Ratio 0.9; Prothrombin Time (Protime)PT. 12.4 SECONDS (11.7-14.9)
[2022-11-09 02:25] LABS: Partial Thromboplast Time 27.6 Seconds (24.1-36.2)
[2022-11-09 02:35] LABS: ALB/GLOB Ratio 0.9 RATIO (0.9-2.4); AST(SGOT) 647 U/L (15-37); Alanine Aminotransfer ALT/SGPT 306 U/L (13-56); Albumin, Serum 3.3 g/dL (3.2-5.0); Alkaline Phosphatase 357 U/L (45-117); Anion Gap 2 (5-15); BUN 29 mg/dL (7-18); BUN/Creat Ratio 25.2 RATIO (10-20); Chloride 103 mmol/L (98-107); Creatinine, Serum 1.15 mg/dL (0.55-1.02); EST Glomerular Filtration Rate 50 mL/min (>60); Est Glom Filt Rate - Afr Amer 60 mL/min (>60); Estimated Creatinine Clearance 38.73 ml/min; Globulin 3.6 g/dL (2.2-4.2); Glucose 97 mg/dL (74-106); Potassium 5.1 mmol/L (3.5-5.1); Protein, Total 6.9 g/dL (6.4-8.2); Sodium Level 143 mmol/L (136-145); Troponin-I HS (w/2H Reflex) 15 pg/mL (3.0-54.0)
[2022-11-09 02:39] LABS: Lactic Acid 0.7 mmol/L (0.4-1.9)
[2022-11-09 02:40] LABS: Allen Test Positive; Base Excess 10 mmol/L (-2 to +2); Bicarbonate 38.1 mmol/L (22-26); Blood Gas Specimen Type ART; O2 Delivery Device Cannula; PO2 69 mmHG (75-100); SITE R Radial; SO2 88 % (95-99); Total Carbon Dioxide 41 mmol/L; pCO2 92.8 mmHg (35-45); pH 7.22 (7.35-7.45)
[2022-11-09 02:41] LABS: BNP,B-Type NATRIURETIC PEPTIDE 102.6 pg/mL (0-100)
[2022-11-09 02:41] LABS: Color, Urine Yellow (Yellow); Glucose, Dipstick Normal (Normal); Ketone-Dipstick Negative (Negative); Leukocyte Esterase-Dipstick 25 /ul (Negative); Nitrite-Dipstick Negative (Negative); Occult Blood-Urine Negative /ul (Negative); Protein-Dipstick 15 mg/dl (Negative); Specific Gravity, Urine 1.015 (1.002-1.030); Urine Bilirubin Dipstick Negative (Negative); Urine Clarity Clear (Clear); Urine Urobilinogen Normal (Normal)
[2022-11-09 02:48] LABS: Bacteria 1+ /hpf (None Seen); White Blood Cells 0-5 SEEN /hpf (0-5)
[2022-11-09 03:12] LABS: Procalcitonin < 0.01 ng/mL (0.00-0.09)
--- NOTE | 2022-11-09 03:33 | PCM.HP.STD ---
HPI - General General Date of Admission: 11/09/22 Date of Service: 11/09/22 Chief Complaint: Confusion, hypoxia. HPI Narrative The patient is a 67 y/o F w/ PMHx: Seizure disorder, COPD w/ Chronic Hypoxic Respiratory Failure (2L NC) s/p tracheostomy (07/10/22), Chronic Diastolic CHF w/ Hx Takotsubo cardiomyopathy, Chronic dysphagia with aspiration history on altered diet w/ prior PEG tube (07/09/22), Seizure disorder, GERD, Chronic normocytic anemia, Hx CVA w/ most recent 01/2022 Hemorrhagic CVA requiring transfer to [facility] and surgical intervention at that time, Hx VTE, HTN, HLD, TIO, Chronic Depression and Anxiety, History of Breast CA, Former EtOH Abuse, recent hospitalization discharged 10/12/22 following treatment of acute on chronic hypoxic/hypercarbic respiratory failure secondary to acute decompensated diastolic CHF, acute COPD exacerbation, undifferentiated shock with suspicions of aspiration w/ chronic dysphagia with prior PEG tube with refused future replacement on altered diet per ST discharged on completion regimen of augmentin and steroid taper who now re-presents to the [facility] ED on 11/09/22 with history of increased confusion with potentially recent increased coughing supposed to be wearing her supplemental oxygen but unfortunately she does not always do this with no recent orthopnea, edema or weight gain but noted to be hypoxic upon presentation at 80% as well as hypotensive upon initial arrival with systolic in the 80s although patient does have underlying low BPs previously. Work-up in the ED included T97, heart rate 87, BP 82/63, respiratory rate 19, initially 80% on 2 L nasal cannula transition to Ventimask eventually transition to BiPAP, ABG with pH 7.22, bicarb 38.1, oxygenation 88%, PCO2 92.8, PO2 69 obtained on 2 L nasal cannula, CBC with WC 6.4, hemoglobin 11.3, MCV 94.5, platelet 182 without marked shift, unremarkable coags, CMP with carbon oxide 38, BUN/creatinine 29/1.15, AST/ALT 647/306, alk phos 357, troponin 15, procalcitonin less than 0.01, lactic acid 0.7, BNP 102.6 chest x-ray with no acute cardiopulmonary findings, urinalysis not marked appearing, blood culture x2 pending per ED, urine culture pending per ED, rapid COVID and influenza antigen negative, EKG with sinus rhythm with no acute evidence of ischemia. In the ED patient administered 2 L normal saline (30 cc/kg for patient 1,665 mL given 55.5 Kg). In the ED patient is becoming more alert following usage of BiPAP but still not at baseline. [facility] Medical History Anxiety and depression Aspiration pneumonia due to gastric secretions Benign neoplasm of colon Carcinoma in situ of breast Chronic anemia COPD (chronic obstructive pulmonary disease) Daytime hypersomnia Diastolic CHF Essential (primary) hypertension GERD (gastroesophageal reflux disease) Hemorrhagic cerebrovascular accident (CVA) (02/09/17) History of alcohol abuse History of DVT of lower extremity (02/11/17) History of non-ST elevation myocardial infarction (NSTEMI) (02/03/17) Hyperlipidemia Insomnia Ischemic cerebrovascular accident (CVA) (02/06/17) Non-ischemic cardiomyopathy Non-rheumatic mitral regurgitation TIO (obstructive sleep apnea) Secondary pulmonary arterial hypertension Takotsubo cardiomyopathy (06/17/21) Home Medications aspirin 81 mg tablet 81 mg PO DAILY heart health 11/03/20 [History Last Taken Unknown] cholecalciferol (vitamin D3) 25 mcg (1,000 unit) tablet (Vitamin D3) 25 mcg PO DAILY supplement 11/03/20 [History Last Taken Unknown] folic acid 1 mg tablet 1 mg PO DAILY supplement 11/03/20 [History Last Taken Unknown] pantoprazole 40 mg tablet,delayed release (Protonix) 40 mg PO DAILY GERD 11/03/20 [History Last Taken Unknown] albuterol sulfate 90 mcg/actuation aerosol inhaler (Ventolin HFA) 2 puff inhalation Q4H PRN shortness of breath or wheezing #18 grams 12/23/20 [Rx Last Taken Unknown] albuterol sulfate 1.25 mg/3 mL solution for nebulization 1.25 mg inhalation Q4H PRN Shortness Of Breath Or Wheezing 06/15/21 [History Last Taken Unknown] mecobalamin (vitamin B12) 5,000 mcg disintegrating tablet 5,000 mcg PO DAILY 07/07/21 [History Last Taken Unknown] acetaminophen 650 mg/20.3 mL oral solution 650 mg (20.3 mL) G-tube Q4H PRN PRN Pain 1-10 Or Fever #0 mL 07/25/22 [Rx Last Taken Unknown] albuterol sulfate 2.5 mg/3 mL (0.083 %) solution for nebulization 2.5 mg (3 mL) inhalation Q2H PRN PRN Dyspnea, wheezing #0 mL 07/25/22 [Rx Last Taken Unknown] famotidine 20 mg tablet 20 mg G-tube BID #0 tabs 07/25/22 [Rx Last Taken Unknown] ipratropium 0.5 mg-albuterol 3 mg (2.5 mg base)/3 mL nebulization soln 3 ml inhalation Q6HWA.RT #0 mL 07/25/22 [Rx Last Taken Unknown] lactose-reduced food with fiber 0.06 gram-1.5 kcal/mL oral liquid (Jevity 1.5 Kelvin) 240 ml G-tube 0900,1200,1600,1900 #0 mL 07/25/22 [Rx Last Taken Unknown] oxycodone 5 mg tablet 5 mg G-tube Q6H PRN PRN Pain Score 6-10 3 days #0 tabs 07/25/22 [Rx Last Taken Unknown] potassium chloride 20 mEq/15 mL oral liquid 40 meq (30 mL) G-tube BID #0 mL 07/25/22 [Rx Last Taken Unknown] sennosides 8.6 mg-docusate sodium 50 mg tablet (Stool Softener-Stimulant Laxative) 2 tab G-tube BID #0 tabs 07/25/22 [Rx Last Taken Unknown] zolpidem 5 mg tablet (Ambien) 5 mg PO QHS PRN insomnia 30 days #30 tabs 07/25/22 [Rx Last Taken Unknown] aripiprazole 2 mg tablet (Abilify) 2 mg PO DAILY 08/25/22 [History Last Taken Unknown] atorvastatin 40 mg tablet 40 mg PO QHS 08/25/22 [History Last Taken Unknown] metoprolol succinate 25 mg tablet,extended release 24 hr 25 mg PO DAILY 08/25/22 [History Last Taken Unknown] fluticasone fur. 100 mcg-umeclid 62.5 mcg-vilant 25 mcg inhalat.powder 1 inh inhalation DAILY COPD #60 ea 08/28/22 [Rx Last Taken Unknown] amoxicillin 500 mg-potassium clavulanate 125 mg tablet 1 tab PO Q12H #14 tabs 10/12/22 [Rx Last Taken Unknown] buspirone 5 mg tablet 10 mg PO BID #0 tabs 10/12/22 [Rx Last Taken Unknown] furosemide 10 mg/mL oral solution 20 mg (2 mL) PO BIDLX #0 mL 10/12/22 [Rx Last Taken Unknown] guaifenesin 1,200 mg tablet, extended release 12 hr (Mucus Relief ER) 1,200 mg PO BID 7 days #14 tabs 10/12/22 [Rx Last Taken Unknown] levetiracetam 100 mg/mL oral solution 500 mg (5 mL) PO BID #0 mL 10/12/22 [Rx Last Taken Unknown] phenytoin 100 mg/4 mL oral suspension 100 mg (4 mL) PO Q8 30 days #360 mL 10/12/22 [Rx Last Taken Unknown] prednisone 20 mg tablet 40 mg PO DAILY 5 days #10 tabs 10/12/22 [Rx Last Taken Unknown] quetiapine 100 mg tablet 50 mg PO BID #0 tabs 10/12/22 [Rx Last Taken Unknown] Allergy/AdvReac Type Severity Reaction Status Date / Time tetanus and diphtheria Allergy Hives Verified 11/09/22 01:43 toxoids [tetanus & diphtheria toxoids] Family History Sister Cancer lung Father Cancer lung Mother Cancer lung Surgical History H/O: section History of bilateral cataract extraction History of cholecystectomy History of left heart catheterization (06/17/21) History of lumpectomy History of tracheostomy Hx of appendectomy S/P percutaneous endoscopic gastrostomy (PEG) tube placement Social History household members: none Smoking Status: Former smoker how long ago did patient quit smokin, 1pk/day second hand exposure: Yes alcohol intake: former substance use type: does not use what type of physical activity do you participate in: walking frequency: daily ROS Review of Systems ROS Unobtainable: due to encephalopathy and due to mental condition Vital Signs Vital Signs Vital Signs: 11/09/22 01:44 11/09/22 02:00 11/09/22 02:50 Temperature 97 F L Temperature Source Temporal Pulse Rate 87 82 Respiratory Rate 19 H 15 Respiratory Pattern Normal Blood Pressure 82/63 L Blood Pressure Mean 69 Pulse Ox 80 93 Oxygen Delivery Method Nasal Cannula Venturi Mask Oxygen Flow Rate (L/min) 2 Fraction of Inspired Oxygen (FIO2) 30 11/09/22 03:24 Temperature Temperature Source Pulse Rate 75 Respiratory Rate 13 Respiratory Pattern Blood Pressure 75/32 L Blood Pressure Mean 46 Pulse Ox 98 Oxygen Delivery Method Bi-pap Oxygen Flow Rate (L/min) Fraction of Inspired Oxygen (FIO2) Weight Weight: 122 lb 5.705 oz Body Mass Index (BMI) 21.7 Physical Exam Narrative Physical Examination: General: Patient awakens to stimuli, not alert however but improving, not answering orientations questions well but BIPAP in place, improved since initial ED arrival, respiratory distress improved on BIPAP. Skin: Normal color, normal turgor, no icterus, no cyanosis. HEENT: AT/NC, EOMI, pupils equal, bilaterally pinpoint which is similar to prior, dry appearing MM with BIPAP in place, no carotid bruits however referred sounds from BIPAP make evaluation difficult, no marked JVD noted. Lungs: Severely diffusely diminished, tight, BIPAP in place, RR increased with accessory muscle usage but improving, respiratory distress improving, no rales, ronchi or wheezing but again minimal movement noted. Heart: Currently regular rate with regular rhythm; no gallop, rub audible. Abdomen: Soft, NTTP, ND, distant normal BS, no HSM. Extremities: No cyanosis, clubbing, or edema. Neurological: Patient awakens to stimuli, not alert however but improving, not answering orientations questions well but BIPAP in place, improved since initial ED arrival, respiratory distress improved on BIPAP, cognitive function not baseline intact; pupils equally pinpoint and sluggish, cranial nerves unable to be assessed well given current status but improving, s/p prior CVA w/ chronic deficits, strength difficult to assess given current status, primarily severely globally decreased strength given acute presentation on chronic comorbidities. Psychiatric: Affect appears flat, respiratory distress improving, BIPAP in place, no acute evidence of depressive or anxiety feelings. Results Lab / Micro Data Result Diagrams: 11/09/22 01:58 11/09/22 01:58 Labs: Laboratory Results - last 24 hr 11/09/22 01:58: B-Natriuretic Peptide 102.6 H 11/09/22 01:58: WBC 6.4, RBC 3.98 L, Hgb 11.3 L, Hct 37.6, MCV 94.5, MCH 28.4, MCHC 30.1 L, RDW Std Deviation 44.9 H, RDW Coeff of Deonte 13.0, Plt Count 182, MPV 9.9, Immature Gran % (Auto) 0.300, Neut % (Auto) 52.5, Lymph % (Auto) 32.6, [place] % (Auto) 8.1, Eos % (Auto) 5.7 H, Baso % (Auto) 0.8, Absolute Neuts (auto) 3.4, Absolute Lymphs (auto) 2.10, Nucleated RBC % 0 11/09/22 01:58: PT 12.4, INR 0.9, APTT 27.6 11/09/22 01:58: Sodium 143, Potassium 5.1, Chloride 103, Carbon Dioxide 38.0 H, Anion Gap 2 L, BUN 29 H, Creatinine 1.15 H, Estim Creat Clear Calc 38.73, Est GFR (MDRD) Af Amer 60, Est GFR (MDRD) Non-Af 50 L, BUN/Creatinine Ratio 25.2 H, Glucose 97, Calcium 9.0, Total Bilirubin 0.20, AST 647 H, ALT 306 H, Alkaline Phosphatase 357 H, Troponin I High Sens 15, Total Protein 6.9, Albumin 3.3, Globulin 3.6, Albumin/Globulin Ratio 0.9 11/09/22 01:58: Lactic Acid 0.7 11/09/22 02:15: Procalcitonin < 0.01 11/09/22 02:20: Urine Color Yellow, Urine Clarity Clear, Urine pH 5.0, Ur Specific Nathalie 1.015, Urine Protein 15 H, Urine Glucose (UA) Normal, Urine Ketones Negative, Urine Occult Blood Negative, Urine Nitrite Negative, Urine Bilirubin Negative, Urine Urobilinogen Normal, Ur Leukocyte Esterase 25 H, Urine RBC 0 SEEN, Urine WBC 0-5 SEEN, Ur Squamous Epith Cells 0 SEEN, Urine Bacteria 1+, Urine Mucus 0 SEEN Micro: Microbiology 11/09/22 02:04 Nasal Secretion SARS-CoV-2 & FLU Antigen (Rapid) - Final ABG Data ABG results: ABG 11/09/22 02:32 Specimen Type ART Sample Site R Radial pH 7.22 L Bicarbonate Actual 38.1 H Total CO2 41 Base Excess 10 H O2 Saturation 88 L ABG pCO2 92.8 H* ABG pO2 69 L Royal Test Positive O2 Delivery Device Cannula Liter Flow 2.0 Crit Call To/Read Back Yes Blood Gas Notified Whom dr kc Radiology Impression Chest X-Ray 11/09/22 02:00 IMPRESSION: No evidence of acute cardiopulmonary disease. Electronically Signed: Pablo Berry, DO at 2:42 EDT , Assessment & Plan Assessment/Plan (1) Acute on chronic respiratory failure with hypoxia: PLAN: Plan The patient is a 67 y/o F w/ PMHx: Seizure disorder, COPD w/ Chronic Hypoxic Respiratory Failure (2L NC) s/p tracheostomy (07/10/22), Chronic Diastolic CHF w/ Hx Takotsubo cardiomyopathy, Chronic dysphagia with aspiration history on altered diet w/ prior PEG tube (07/09/22), Seizure disorder, GERD, Chronic normocytic anemia, Hx CVA w/ most recent 01/2022 Hemorrhagic CVA requiring transfer to [facility] and surgical intervention at that time, Hx VTE, HTN, HLD, TIO, Chronic Depression and Anxiety, History of Breast CA, Former EtOH Abuse, recent hospitalization discharge 10/12/22 who now re-presents to the [facility] ED on 11/09/22 with history of increased confusion with potentially recent increased coughing supposed to be wearing her supplemental oxygen but unfortunately she does not always do this with no recent orthopnea, edema or weight gain but noted to be hypoxic upon presentation at 80% as well as hypotensive upon initial arrival with systolic in the 80s although patient does have underlying low BPs previously. #1. Acute Encephalopathy secondary to Suspected Acute on chronic COPD exacerbation with Acute on Chronic Hypoxia and Hypercarbia complicated by #2: CXR w/ chronic changes, CBC with no marked WBC elevation or left shift, ABG with pH 7.22, bicarb 38.1, oxygenation 88%, PCO2 92.8, PO2 69 obtained on 2 L nasal cannula, will admit to ICU, continue BiPAP with planned repeat ABG in approximately 1 to 2 hours as well as as needed, will request involvement of qualitative field project manager, once able will transition to supplemental oxygen nasal cannula with wean as tolerated to home oxygen supplementation, continue ATC duonebs, PRN albuterol, IV methylprednisolone, as noted #2, will continue IVFs to complete 30 cc/kg but likely will need to initiate NEP, HOB, IS parameters, given unremarkable chest x-ray, CBC with no marked WC elevation or left shift and afebrile with unremarkable procalcitonin thus will hold on empiric antibiotic therapy, will obtain full respiratory viral panel and COVID PCR be cautious, blood culture x2 pending per ED. #2. Hypotension/undifferentiated shock similar to prior presentations, history of low blood pressures but not as profound and patient is on chronic hypertensive regimen as well: Unclear specific etiology, chest x-ray with no acute findings, urinalysis with no obvious evidence of UTI, procalcitonin unremarkable, suspect transient transaminitis is likely related as well as from acute presentation #1 also, will continue hydration to complete 30 cc/kg and but given notable reduced MAP likely will need to transition to NEP, blood culture x2 pending per ED. #3. Acute transaminitis, potentially secondary to acute presentation with hypoperfusion and hypoxia, #1, #2: We will continue treatment as noted, will request liver ultrasound and to be cautious we will obtain early hepatitis acute panel although again suspect primarily secondary to above as noted, repeat CMP in a.m. if progresses further low threshold to involve gastroenterology. #4. Mild acute renal insufficiency: Admission BUN/creatinine 29/1.15, baseline creatinine noted prior primarily 0.6-0.9, potentially related with her acute presentation, continue judicious hydration, continue to trend and if worsens further would hold nephrotoxic and obtain FeNa/renal US assessment if necessary. #5. Seizure disorder: Initially witnessed and diagnosed in July 2022, patient on Keppra and phenytoin regimen, given current status if any concerns arise low threshold to transition to IV version, certainly with current presentation always concern for possible seizure activity. We will maintain on fall, aspiration and seizure precautions to be safe. Keppra and phenytoin levels requested. #6. Hx Takotsubo cardiomyopathy, chart reported history Chronic Systolic CHF: 09/23/2021 echocardiogram with segmental dysfunction with preserved EF, EF 65%, moderate MVI, mild TVI, RVSP 43 mmHg with no evidence for diastolic dysfunction, given current presentation until clinically improved with safe oral intake we will temporarily hold patient home oral regimen. We will continue aspirin therapy however given hypotension will temporally hold hypertensive regimen, given elevated LFTs we will also hold statin therapy. #7. Hypertension: As noted upon presentation patient hypotensive, holding all hypertensive regimen, add back once clinically appropriate. #8. Hyperlipidemia: Given elevated LFTs will temporally hold patient on statin therapy. #9. Hx CVA, most recently Hx Hemorrhagic CVA: Patient with prior history of strokes including most recently 01/2022 hemorrhagic stroke requiring transfer to [facility] and intervention at that time. We will continue patient aspirin therapy, holding hypertensive regimen given hypertensive presentation, holding statin also given elevated LFTs. #10. Hx VTE: Chart reported history of prior lower extremity DVT, chemoprophylaxis ordered as noted. #11. Chronic anemia, normocytic: Admission hemoglobin 11.3, baseline hemoglobin primarily 9-10 more recently although has been lower prior, will repeat level in AM. #12. Anxiety and Depression: We will continue patient home Abilify, low-dose BuSpar and Seroquel regimen however low threshold to hold if sedate or if oral intake unsafe. #13. RLS: Per current list Requip not noted but had been previously on this medication, clarifying. #14. Former tobacco use: Encourage continued tobacco cessation. #15. GERD: We will continue patient home PPI. #16. TIO: BIPAP q HS. #17. DVT prophylaxis: Lovenox. #18. CODE status: Patient STACEY is her daughter who is present and living will is currently in place. During recent presentation CODE status Full Code but given recurrent critical presentation discussed CODE status with patient spouse, including difference between FULL code, DNR-CCA and DNR-CC status. Following discussions about the differences in these status, requested Full Code status. Amenable to central line/pressor therapy if necessary. Advanced Care Planning Face to Face Time: 16 minutes. Admission Evaluation Time spent evaluating chart, patient history, patient evaluation, care planning and discussion with specialists: 75 minutes. Charges/Coding Visit Charges Inpatient E&M: 04764 Init Hosp L3 Procedures Hospitalists Procedures: 42179 Advncd Care Plan 30 Min
--- NOTE | 2022-11-09 03:44 | US_ITS ---
STUDY: ABDOMINAL ULTRASOUND - RIGHT UPPER QUADRANT REASON FOR VISIT: Female, 67 years old Transaminitis TECHNIQUE: Ultrasound evaluation of the right upper quadrant was performed with real-time and static wood-scale imaging. TECHNICAL QUALITY: Adequate. COMPARISON: Comparison is made with prior study dated October 16, 2018. FINDINGS: Liver: The liver measures 14.3 cm. There is normal echogenicity of the liver. The bile ducts are within normal limits. There is hepatic color flow. The direction of portal flow is hepatopetal. There is no demonstrated mass lesion. Gallbladder: The patient is status post cholecystectomy. Common Bile Duct (C.B.D.): The common bile duct measures 10 mm. Pancreas: Normal size of the head, body and tail of the pancreas. There is normal echogenicity of the pancreas. There is no demonstrated pancreatic mass or cyst. Right Kidney: Normal size of the right kidney. The right kidney measures 8.6 x 4 cm x 3.5 cm. Normal renal cortex. The right cortex measures 1.0 cm. There is no demonstrated renal mass or cyst. There is no right hydronephrosis. US/Liver IMPRESSION: Status post cholecystectomy. Electronically Signed: Vinny Mcghee MD at 8:58 EDT ,
[2022-11-09 04:08] LABS: Reflex Troponin-HS? (from REC) Y
[2022-11-09] MEDS: 0.9% Normal Saline 1,000 ML 100 ML IV ×3 (05:15→20:26)
[2022-11-09 05:35] LABS: Absolute Lymphocyte Count 1.68 X10^3/uL (0.83-4.51); Absolute Neutrophil Count 3.1 X10^3/uL (2.0-7.7); Basophil# 0.03 X10^3/uL; Basophil% 0.5 % (0-1); Eosinophil# 0.37 X10^3/uL; Eosinophils% 6.5 % (0-5); Hematocrit 31.7 % (37-47); Hemoglobin 9.3 g/dL (12.0-15.0); Lymphocyte # 1.68 X10^3/ul (0.83-4.51); Lymphocyte % 29.4 % (19-41); Mean Corp Hgb Conc 29.3 g/dL (32-36); Mean Corpuscular Hgb 28.2 pg (27.0-32.0); Mean Corpuscular Volume 96.1 fL (81-99); Monocyte# 0.49 X10^3/uL; Monocyte% 8.6 % (0-10); NRBC Flagged by Analyzer 0 % (0-5); Neutrophil # 3.12 X10^3/uL (2.7-7.7); Neutrophil % 54.6 % (47-70); Platelet Count 147 K/mm3 (150-450); RBC Distribution Width CV 13.2 % (11.6-14.6); RBC Distribution Width SD 46.7 fl (35.1-43.9); White Blood Count 5.7 K/mm3 (4.4-11.0)
[2022-11-09 05:40] LABS: Allen Test Positive; Base Excess 6 mmol/L (-2 to +2); Bicarbonate 33.4 mmol/L (22-26); Blood Gas Specimen Type ART; FI02 40; O2 Delivery Device BiPAP; PEEP 6; PO2 126 mmHG (75-100); PS 6; SITE L Radial; SO2 98 % (95-99); Total Carbon Dioxide 36 mmol/L; pCO2 80.3 mmHg (35-45); pH 7.23 (7.35-7.45)
[2022-11-09 05:46] LABS: Phenytoin (Dilantin) Level 1.6 mL (10.0-20.0)
[2022-11-09 06:12] LABS: ALB/GLOB Ratio 0.9 RATIO (0.9-2.4); AST(SGOT) 371 U/L (15-37); Alanine Aminotransfer ALT/SGPT 228 U/L (13-56); Albumin, Serum 2.5 g/dL (3.2-5.0); Alkaline Phosphatase 274 U/L (45-117); Anion Gap 1 (5-15); BUN 27 mg/dL (7-18); BUN/Creat Ratio 34.5 RATIO (10-20); Calcium,Total 7.3 mg/dL (8.5-10.1); Chloride 113 mmol/L (98-107); Creatinine, Serum 0.78 mg/dL (0.55-1.02); EST Glomerular Filtration Rate 78 mL/min (>60); Est Glom Filt Rate - Afr Amer 94 mL/min (>60); Estimated Creatinine Clearance 44.54 ml/min; Globulin 2.8 g/dL (2.2-4.2); Glucose 86 mg/dL (74-106); Potassium 4.8 mmol/L (3.5-5.1); Protein, Total 5.3 g/dL (6.4-8.2); Sodium Level 147 mmol/L (136-145); Troponin-I HS 13 pg/mL (3.0-54.0)
[2022-11-09] MEDS: MethylPREDNISolone 125 MG/2 ML Vial IV (06:25)
[2022-11-09] MEDS: Phenytoin Na 100 MG/4 ML UDC PO ×3 (06:26→20:54)
--- NOTE | 2022-11-09 06:51 | PCM.HOSP.N ---
Hospitalist Note Would like her pain medication back, remains hypotensive #Acute on chronic combined respiratory failure -pCO2 92.8 initially, on bipap w/ pCO2 80.3 -pO2 improved w/ bipap -Methypred, duonebs, alb prn #Hypotension -No identified infx process but given unclear etiology ballard cultured, no empiric abx at this time -Echo 1mon ago w/ apical hypokinesis but EF 55%, mod mitral insufficiency -If not improving can repeat but given close proximity this has not been ordered -Fluids ordered -Hold home metoprolol -Possibly component of adrenal insufficiency due to frequent steroids, is on Methylpred #Transaminitis -likely 2/2 hypotension, improved on repeat -RUQ pending #Seizure d/o -Phenytoin lvl 1.6, keppra level pending -Home doses in comp continued, unclear what she is supposed to be on at home -Does appear she is filling abilify and not seroquel or buspar so these were held and abilify continued
[2022-11-09] MEDS: Ipratropium/Albuterol Sulfate 3 ML AMPUL.NEB INHALATION ×4 (07:08→19:04)
--- NOTE | 2022-11-09 07:12 | EX.PCM.CONCC ---
Assessment & Plan Assessment/Plan (1) Acute and chronic respiratory failure with hypercapnia: PLAN: Plan RECOMMENDATIONS: 1. Continue BiPAP at the current settings. 2. Attempt to keep saturations between 90 and 94% 3. Continue antiepileptics, along with seizure precautions. 4. Continue steroid therapy, along with bronchodilators 5. Electrolyte repletion as indicated 6. Monitor off antimicrobials 7. Continue appropriate ICU prophylaxis. 8. Continue home psych medications to help with impulsivity IMPRESSIONS: 1. Acute on chronic combined respiratory failure The patient has known end-stage COPD and chronic hypoxemic respiratory failure, along with baseline CO2 retention. She has questionable compliance with her outpatient noninvasive ventilator. Patient with some improvement following BiPAP therapy. Cannot exclude the need for intubation moving forward. We will continue to monitor in the intensive care unit. 2. Encephalopathy Improving, but remains impulsive. Patient does have a history of seizure activity in the past and Dilantin level is decreased. In addition, there is some question as to whether possible polypharmacy may have also been contributing. Plan to continue current antiepileptics along with seizure precautions and as needed Ativan. Patient will be increased on Seroquel 3. Multifactorial shock/relative adrenal insufficiency Unclear etiology. Patient's infectious etiologies are minimal at this time. Patient does not have a leukocytosis or an elevated procalcitonin level. Patient does have a history of relative adrenal insufficiency. We will place patient on Solu-Medrol and monitor for response. Patient will be on pressors at this time. Blood pressure will likely improve with improvement in acidosis secondary to problem #1. 4. History of end-stage COPD/chronic hypoxemic respiratory failure/obstructive sleep apnea/frequent COPD exacerbations The patient has a known history of end-stage COPD with questionable outpatient medical compliance. The patient has had compliance issues in the past related to her supplemental oxygen use and noninvasive ventilator utilization. She will be maintained on scheduled bronchodilators for now. 5. History of hemorrhagic CVA/former tobacco dependency/history of cardiomyopathy/anxiety/depression Complicates care, management, recovery and prognosis. Okay to continue tube feeds today from my perspective. Replete potassium as indicated. See orders. TIME: 40 minutes of critical care time, independent of procedures, was spent addressing the patient's acute on chronic combined respiratory failure, encephalopathy, shock, review of all data and collaboration with the care team. HPI Consult Data Date of Consult: 05/08/23 HPI Narrative HPI Narrative: MARCO MAY is a 67 F, with past medical history listed below and well-known to me from the outpatient office and repeated visits, who presents to [facility] on 11[facility]09[facility]22 via EMS secondary to worsening confusion. Patient reportedly was unable to provide much additional history. Patient is supposed to be on 2 L and use BiPAP at home, but has a history of noncompliance. Patient had not reported any increased leg swelling, but was found to be 80% on room air on evaluation. Patient had denied any pain at that time. Patient was also hypotensive, but does have a history of marginal blood pressures. Patient is on diuretics at baseline. In the ER, patient was afebrile and slightly hypotensive at 82/63 without tachycardia. Patient was tachypneic and was placed on BiPAP therapy. Laboratory work-up showed a white blood cell count of 6.4, hemoglobin of 11.3 and platelets of 182. Coagulation studies were within normal limits. BNP was slightly elevated at 102.6. Chemistry showed an elevated bicarbonate of 38 with a creatinine of 1.15 and a potassium of 5.1. Lactate were within normal limits. Liver function studies were elevated and troponins were negative, along with procalcitonin. UA was relatively unremarkable. An ABG obtained on 2 L nasal cannula showed a pH of 7.22/93/69/88%. Patient was placed on BiPAP therapy. Chest x-ray showed no acute infiltrates. Viral work-up was unremarkable. Patient did receive fluid resuscitation in the ER Since being in the intensive care unit, patient's mentation has slowly improved. Patient is asking questions, but has no recollection of being brought into the hospital. Patient is not reporting any recent URI type symptoms such as change in sputum, fever, chills, nausea or vomiting at home. No aspiration events have been reported. Unable to obtain review of systems secondary to mental status. Patient is able to state that she does not believe that she has been wearing her BiPAP at home [facility] Medical History Anxiety and depression Aspiration pneumonia due to gastric secretions Benign neoplasm of colon Carcinoma in situ of breast Chronic anemia COPD (chronic obstructive pulmonary disease) Daytime hypersomnia Diastolic CHF Essential (primary) hypertension GERD (gastroesophageal reflux disease) Hemorrhagic cerebrovascular accident (CVA) (02/09/17) History of alcohol abuse History of DVT of lower extremity (02/11/17) History of non-ST elevation myocardial infarction (NSTEMI) (02/03/17) Hyperlipidemia Insomnia Ischemic cerebrovascular accident (CVA) (02/06/17) Non-ischemic cardiomyopathy Non-rheumatic mitral regurgitation TIO (obstructive sleep apnea) Secondary pulmonary arterial hypertension Takotsubo cardiomyopathy (06/17/21) Home Medications aspirin 81 mg tablet 81 mg PO DAILY heart health 11/03/20 [History Last Taken Unknown] cholecalciferol (vitamin D3) 25 mcg (1,000 unit) tablet (Vitamin D3) 25 mcg PO DAILY supplement 11/03/20 [History Last Taken Unknown] folic acid 1 mg tablet 1 mg PO DAILY supplement 11/03/20 [History Last Taken Unknown] pantoprazole 40 mg tablet,delayed release (Protonix) 40 mg PO DAILY GERD 11/03/20 [History Last Taken Unknown] albuterol sulfate 90 mcg/actuation aerosol inhaler (Ventolin HFA) 2 puff inhalation Q4H PRN shortness of breath or wheezing #18 grams 12/23/20 [Rx Last Taken Unknown] albuterol sulfate 1.25 mg/3 mL solution for nebulization 1.25 mg inhalation Q4H PRN Shortness Of Breath Or Wheezing 06/15/21 [History Last Taken Unknown] mecobalamin (vitamin B12) 5,000 mcg disintegrating tablet 5,000 mcg PO DAILY 07/07/21 [History Last Taken Unknown] albuterol sulfate 2.5 mg/3 mL (0.083 %) solution for nebulization 2.5 mg (3 mL) inhalation Q2H PRN PRN Dyspnea, wheezing #0 mL 07/25/22 [Rx Last Taken Unknown] ipratropium 0.5 mg-albuterol 3 mg (2.5 mg base)/3 mL nebulization soln 3 ml inhalation Q6HWA.RT #0 mL 07/25/22 [Rx Last Taken Unknown] oxycodone 5 mg tablet 5 mg G-tube Q6H PRN PRN Pain Score 6-10 3 days #0 tabs 07/25/22 [Rx Last Taken Unknown] potassium chloride 20 mEq/15 mL oral liquid 40 meq (30 mL) G-tube BID #0 mL 07/25/22 [Rx Last Taken Unknown] sennosides 8.6 mg-docusate sodium 50 mg tablet (Stool Softener-Stimulant Laxative) 2 tab G-tube BID #0 tabs 07/25/22 [Rx Last Taken Unknown] zolpidem 5 mg tablet (Ambien) 5 mg PO QHS PRN insomnia 30 days #30 tabs 07/25/22 [Rx Last Taken Unknown] aripiprazole 2 mg tablet (Abilify) 2 mg PO DAILY 08/25/22 [History Last Taken Unknown] atorvastatin 40 mg tablet 40 mg PO QHS 08/25/22 [History Last Taken Unknown] metoprolol succinate 25 mg tablet,extended release 24 hr 25 mg PO DAILY 08/25/22 [History Last Taken Unknown] fluticasone fur. 100 mcg-umeclid 62.5 mcg-vilant 25 mcg inhalat.powder 1 inh inhalation DAILY COPD #60 ea 08/28/22 [Rx Last Taken Unknown] furosemide 10 mg/mL oral solution 20 mg (2 mL) PO BIDLX #0 mL 10/12/22 [Rx Last Taken Unknown] levetiracetam 100 mg/mL oral solution 500 mg (5 mL) PO BID #0 mL 10/12/22 [Rx Last Taken Unknown] phenytoin 100 mg/4 mL oral suspension 100 mg (4 mL) PO Q8 30 days #360 mL 10/12/22 [Rx Last Taken Unknown] Allergy/AdvReac Type Severity Reaction Status Date / Time tetanus and diphtheria Allergy Hives Verified 11/09/22 01:43 toxoids [tetanus & diphtheria toxoids] Family History Sister Cancer lung Father Cancer lung Mother Cancer lung Surgical History H/O: section History of bilateral cataract extraction History of cholecystectomy History of left heart catheterization (06/17/21) History of lumpectomy History of tracheostomy Hx of appendectomy S/P percutaneous endoscopic gastrostomy (PEG) tube placement Social History household members: none Smoking Status: Former smoker how long ago did patient quit smokin, 1pk/day second hand exposure: Yes alcohol intake: former substance use type: does not use what type of physical activity do you participate in: walking frequency: daily ROS Review of Systems ROS Unobtainable: due to mental status Physical Exam Const alert and average body habitus Constitutional Narrative: Upper middle-aged white female, appears older than stated age. Good BiPAP synchrony. HEENT normocephalic, head/scalp atraumatic and hearing grossly normal bilaterally HEENT Narrative: Dentition is poor, Mallampati is 2, no thrush, mucous membranes are dry from BiPAP Eyes PERRL, EOMs intact bilaterally and conjunctivae normal Neck no lymphadenopathy, supple and No no JVD Neck Narrative: Trachea midline, no JVD noted, no thyroid enlargement Resp Resp Narrative: Diffuse inspiratory and expiratory wheezing with scattered crackles Auscultation: wheezes and diminished lung sounds; Negative for rhonchi Cardio regular rhythm, S1 normal heart sound, S2 normal heart sound, no murmurs, no rub, no gallops and no clicks Cardio Narrative: Mild tachycardia GI normal to inspection, nondistended, normoactive bowel sounds, soft to palpation and non-tender Extremity no clubbing, cyanosis or edema Extremity Narrative: 2+ pedal pulses Skin no rashes or lesions noted, no wounds, skin turgor normal, no jaundice, no petechiae and no mottling Neuro CN's II-XII intact bilaterally, moves all extremities and no focal motor deficits Neuro Narrative: Unable to assess speech fully as patient was on BiPAP and vocal quality was muffled, follows all commands well Psych affect normal Mood & Affect: anxious Medical Records Data Attestation: I reviewed the patient's medical records Lab / Micro Data Attestation: I reviewed the patient's lab results. Result Diagrams: 11/09/22 05:25 11/09/22 05:25 Labs: Laboratory Results - last 24 hr 11/09/22 01:58: B-Natriuretic Peptide 102.6 H 11/09/22 01:58: WBC 6.4, RBC 3.98 L, Hgb 11.3 L, Hct 37.6, MCV 94.5, MCH 28.4, MCHC 30.1 L, RDW Std Deviation 44.9 H, RDW Coeff of Deonte 13.0, Plt Count 182, MPV 9.9, Immature Gran % (Auto) 0.300, Neut % (Auto) 52.5, Lymph % (Auto) 32.6, Meriwether % (Auto) 8.1, Eos % (Auto) 5.7 H, Baso % (Auto) 0.8, Absolute Neuts (auto) 3.4, Absolute Lymphs (auto) 2.10, Nucleated RBC % 0 11/09/22 01:58: PT 12.4, INR 0.9, APTT 27.6 11/09/22 01:58: Sodium 143, Potassium 5.1, Chloride 103, Carbon Dioxide 38.0 H, Anion Gap 2 L, BUN 29 H, Creatinine 1.15 H, Estim Creat Clear Calc 38.73, Est GFR (MDRD) Af Amer 60, Est GFR (MDRD) Non-Af 50 L, BUN/Creatinine Ratio 25.2 H, Glucose 97, Calcium 9.0, Total Bilirubin 0.20, AST 647 H, ALT 306 H, Alkaline Phosphatase 357 H, Troponin I High Sens 15, Total Protein 6.9, Albumin 3.3, Globulin 3.6, Albumin/Globulin Ratio 0.9 11/09/22 01:58: Lactic Acid 0.7 11/09/22 02:15: Procalcitonin < 0.01 11/09/22 02:20: Urine Color Yellow, Urine Clarity Clear, Urine pH 5.0, Ur Specific [place] 1.015, Urine Protein 15 H, Urine Glucose (UA) Normal, Urine Ketones Negative, Urine Occult Blood Negative, Urine Nitrite Negative, Urine Bilirubin Negative, Urine Urobilinogen Normal, Ur Leukocyte Esterase 25 H, Urine RBC 0 SEEN, Urine WBC 0-5 SEEN, Ur Squamous Epith Cells 0 SEEN, Urine Bacteria 1+, Urine Mucus 0 SEEN 11/09/22 03:50: COVID-19 (MERISSA) Not Detected 11/09/22 04:27: Phenytoin 1.6 L 11/09/22 05:25: Sodium 147 H, Potassium 4.8, Chloride 113 H, Carbon Dioxide 33.0 H, Anion Gap 1 L, BUN 27 H, Creatinine 0.78, Estim Creat Clear Calc 44.54, Est GFR (MDRD) Af Amer 94, Est GFR (MDRD) Non-Af 78, BUN/Creatinine Ratio 34.5 H, Glucose 86, Calcium 7.3 L, Total Bilirubin 0.10 L, AST 371 H, ALT 228 H, Alkaline Phosphatase 274 H, Troponin I High Sens 13, Total Protein 5.3 L, Albumin 2.5 L, Globulin 2.8, Albumin/Globulin Ratio 0.9 11/09/22 05:25: WBC 5.7, RBC 3.30 L, Hgb 9.3 L, Hct 31.7 L, MCV 96.1, MCH 28.2, MCHC 29.3 L, RDW Std Deviation 46.7 H, RDW Coeff of Deonte 13.2, Plt Count 147 L, MPV 10.0, Immature Gran % (Auto) 0.400, Neut % (Auto) 54.6, Lymph % (Auto) 29.4, Meriwether % (Auto) 8.6, Eos % (Auto) 6.5 H, Baso % (Auto) 0.5, Absolute Neuts (auto) 3.1, Absolute Lymphs (auto) 1.68, Nucleated RBC % 0 Micro: Microbiology 11/09/22 02:04 Nasal Secretion SARS-CoV-2 & FLU Antigen (Rapid) - Final ABG Data ABG results: ABG 11/09/22 11/09/22 02:32 05:35 Specimen Type ART ART Sample Site R Radial L Radial pH 7.22 L 7.23 L Bicarbonate Actual 38.1 H 33.4 H Total CO2 41 36 Base Excess 10 H 6 H O2 Saturation 88 L 98 O2 % 40 ABG pCO2 92.8 H* 80.3 H* ABG pO2 69 L 126 H Royal Test Positive Positive O2 Delivery Device Cannula BiPAP Liter Flow 2.0 POC PEEP 6 POC Pressure Suppt 6 Crit Call To/Read Back Yes Yes Blood Gas Notified Whom dr de Buitrago Attestation: I personally reviewed and interpreted this ABG as follows: (Acute on chronic respiratory acidosis with increased AA gradient) Radiology Impression Chest X-Ray 11/09/22 02:00 IMPRESSION: No evidence of acute cardiopulmonary disease. Electronically Signed: Pablo Berry DO at 2:42 EDT , Charges/Coding Procedures Hospitalists Procedures: [id number] Critial Care 1st Hr
[2022-11-09] MEDS: guaiFENesin 1,200 MG Tablet 1200 MG PO ×2 (09:30→20:57)
[2022-11-09] MEDS: Pantoprazole Sodium 40 MG Tablet PO (09:30)
[2022-11-09] MEDS: Aspirin 81 MG TAB.CHEW PO (09:30)
[2022-11-09] MEDS: ARIPiprazole 2 MG Tablet PO (09:30)
--- NOTE | 2022-11-09 09:30 | CASEMGMT ---
Addendum entered by Genoveva Gutierrez 11/10/22 09:31: 11/09/22 @ 1645: FINESSE LALA to room. Pt's dtr, Ameena, and sig other @ bedside. Per Kacy @ [facility], she has spoken w/Ameena and arranged for meeting w/Ameena and pt tomorrow (11/10) @ 2:30 PM. Pt made aware of same. Ameena clarified that pt lives w/her (pt's) grandson and also her significant other and address verified. Pt verifies she would like Ameena's contact # to be listed under her (pt's) name so Ameena is the one contacted for appts and medical needs so she can assist w/coordination of care. Above info updated in [employer]. Discussed/reinforced importance of compliance of NIV and Ameena reinforcing this w/pt and sig other as well. Addendum entered by Genoveva Gutierrez 11/09/22 15:58: FINESSE LALA spoke w/Diane, RT, @ [facility] re: nocturnal trending pulse ox that was ordered for pt when she was discharged from [facility] last admission. Per Diane, they have reached out to pt to set this up, but were unsuccessful in contacting her. Per Kacy @ [facility], they have been unable to reach pt. FINESSE LALA to room. Pt does not have her phone on her at this time. Further questions about Palliative answered. Pt gave permission to call her dtr, Ameena, to discuss her care and Palliative care w/her. Call placed to Ameena at this time. Ameena lauren is very interested in pt having Palliative care. She voices much concern re: pt's non-compliance w/her NIV and states has been trying to keep an eye on her mom and has been encouraging use of it. She states pt does not live w/her, stating pt lives w/her grandson (Ameena's son), so she is not w/her @ night time. Discussed that [employer] has tried to reach pt since last admission to set up trending nocturnal pulse ox but have been unsuccessful. Ameena states she would like to be contacted for further appts and medical needs, as she has been trying to help manage these things for her mom. Ameena voices concern that pt may have early stages of dementia and inquired about the process of having further evaluation for this. FINESSE LALA advised her to contact pt's PCP/Dr Pineda to discuss these concerns w/him and possible referral to a neurologist for further testing. She voices appreciation. Ameena states she tries to go to appts w/her mom but is not always able to go, but states is going to try and go more often. Call placed to Diane @ [employer]. She was provided w/dtr, Ameena's, contact info and that she would like to be contacted for further medical needs/appts. She was also made aware Ameena is inquiring if a new mask can be tried for the NIV. Diane states this can be done. Original Note: FINESSE LALA Readmission note: Prior admission: Admitted 10/09 w/A on C hypoxic and hypercapnic resp failure. Pt w/hx of COPD. Pt has home O2 from [employer] @ 2 l/m continuously and to wear NIV @ HS. Pt lives w/her daughter and was discharged home w/[facility]. Pt discharged w/Rx for 5 more days PO Augmentin and Prednisone and to f/u with pulmonology and cardiology. Current admission: Pt admitted 11/09/22 w/resp failure, undifferentiated shock, and COPD. FINESSE LALA to room. Introduced self and role. Pt states she is still active w/[facility] and wishes to resume w/them @ d/c. Order placed for [facility]: SN. She declines wanting list of other C agencies. She states she lives w/her dtr, but wants to talk w/SW re: housing resources. IBETH Resendiz, made aware. Pt states she gets her routine meds from [facility] and has been taking them as prescribed. She states she has been wearing her oxygen during the day 97% of the time, but reports she only wears her NIV about 5 days out of 30. Educated on importance of wearing NIV. . Pt states Dr Duarte has also discussed this w/her and she states she is starting to see the importance of it and she plans to be more compliant w/it. Discussed Palliative care and pt states she is interested in same. Dr Barber made aware and order received. E-mail sent to [employer] re: referral. Pt states she has a f/u appt @ pulmonology coming up this month. FINESSE LALA noted in [employer] appt is scheduled w/Ema Stevens NP, on 11/16 @ [id number]. This was placed in pt's discharge plan. Also noted pt has an appt w/Severo Neal @ [facility] tomorrow. Call to placed [facility] and appt rescheduled for 11/20 @ 3 PM and this was placed in pt's discharge plan. Pt was made aware. Pt denies other discharge planning needs at this time. Plan: Home to dtr's house w/Resumption of HHC: SN. Palliative referral placed. for Housing resources. Korin BSN RN CM
[2022-11-09] MEDS: TITRATION PARAMETER CHANGE 1 EACH IV (09:31)
[2022-11-09] MEDS: Enoxaparin 40 MG/0.4 ML Syringe SC (09:31)
[2022-11-09] MEDS: Acetaminophen 325 MG Tablet 650 MG PO ×2 (09:35→22:03)
--- NOTE | 2022-11-09 09:59 | CASEMGMT ---
Social Work Pt requested housing information as per CM. SW met w/pt. Pt has applied for [employer], she states she is on the list. SW gave pt information on [employer], who can help with finding housing. SW also gave pt a list of available apartments sent over by [employer]. Pt specifically is looking for a pet friendly apartment with no steps in [place]. SW suggested to pt to call [employer] or [employer] to assist with this, as the list provided by [employer] does not have all of this information for all of the places available. Pt states understanding. List left w/pt along w/information for [employer]. BURTON Elmore
[2022-11-09] MEDS: levETIRAcetam Oral Solution 500 MG/5 ML PO ×2 (11:08→20:54)
[2022-11-09 11:40] LABS: Troponin-I HS 12 pg/mL (3.0-54.0)
[2022-11-09] MEDS: Methylprednisolone Sod Succ 40 MG/ML VIAL IV ×2 (14:17→20:58)
[2022-11-09] MEDS: Atorvastatin Calcium 40 MG Tablet PO (20:57)
--- NOTE | 2022-11-09 23:54 | CPS ---
RN attempted bipap on patient at 22:00. Patient was unable to tolerate and said she was having a panic attack. Bipap was taken off at 22:40.
[2022-11-10] VITALS (20 sets, daily range): BP systolic 100–125; BP diastolic 51–74; PULSE 84–100; RESP 12–28; TEMP 36.3–36.9; O2SAT 95–100; BMI 23.1
[2022-11-10 04:32] LABS: Absolute Lymphocyte Count 1.07 X10^3/uL (0.83-4.51); Absolute Neutrophil Count 4.3 X10^3/uL (2.0-7.7); Basophil# 0.02 X10^3/uL; Basophil% 0.3 % (0-1); Eosinophil# 0.01 X10^3/uL; Eosinophils% 0.2 % (0-5); Hematocrit 27.6 % (37-47); Hemoglobin 8.4 g/dL (12.0-15.0); Lymphocyte # 1.07 X10^3/ul (0.83-4.51); Lymphocyte % 18.2 % (19-41); Mean Corp Hgb Conc 30.4 g/dL (32-36); Mean Corpuscular Hgb 28.4 pg (27.0-32.0); Mean Corpuscular Volume 93.2 fL (81-99); Mean Platelet Vol. 10.3 fl (6.2-12.0); Monocyte# 0.42 X10^3/uL; Monocyte% 7.1 % (0-10); NRBC Flagged by Analyzer 0 % (0-5); Neutrophil # 4.33 X10^3/uL (2.7-7.7); Neutrophil % 73.7 % (47-70); Platelet Count 128 K/mm3 (150-450); RBC Distribution Width CV 13.3 % (11.6-14.6); RBC Distribution Width SD 45.5 fl (35.1-43.9); Red Blood Count 2.96 M/mm3 (4.2-5.4); White Blood Count 5.9 K/mm3 (4.4-11.0)
[2022-11-10 05:02] LABS: ALB/GLOB Ratio 0.9 RATIO (0.9-2.4); AST(SGOT) 106 U/L (15-37); Alanine Aminotransfer ALT/SGPT 137 U/L (13-56); Albumin, Serum 2.6 g/dL (3.2-5.0); Alkaline Phosphatase 210 U/L (45-117); Anion Gap 3 (5-15); BUN 25 mg/dL (7-18); Calcium,Total 8.1 mg/dL (8.5-10.1); Chloride 112 mmol/L (98-107); Creatinine, Serum 0.78 mg/dL (0.55-1.02); EST Glomerular Filtration Rate 78 mL/min (>60); Est Glom Filt Rate - Afr Amer 94 mL/min (>60); Estimated Creatinine Clearance 44.54 ml/min; Globulin 2.8 g/dL (2.2-4.2); Glucose 139 mg/dL (74-106); Potassium 4.2 mmol/L (3.5-5.1); Protein, Total 5.4 g/dL (6.4-8.2); Sodium Level 145 mmol/L (136-145); Total Bilirubin < 0.10 mg/dL (0.20-1.00)
[2022-11-10] MEDS: 0.9% Normal Saline 1,000 ML 100 ML IV (05:22)
[2022-11-10] MEDS: Phenytoin Na 100 MG/4 ML UDC PO ×3 (05:22→22:30)
[2022-11-10] MEDS: Methylprednisolone Sod Succ 40 MG/ML VIAL IV (05:23)
[2022-11-10] MEDS: Ipratropium/Albuterol Sulfate 3 ML AMPUL.NEB INHALATION ×3 (06:39→19:28)
--- NOTE | 2022-11-10 06:53 | PCM.PN.INT ---
Assessment & Plan Assessment/Plan (1) Acute and chronic respiratory failure with hypercapnia: PLAN: Plan RECOMMENDATIONS: 1. Continue BiPAP with sleep 2. Attempt to keep saturations between 90 and 94% 3. Continue antiepileptics, along with seizure precautions. 4. Transition to prednisone therapy. Okay to taper to 10 mg until seen as an outpatient 5. Electrolyte repletion as indicated 6. Monitor off antimicrobials 7. Continue appropriate ICU prophylaxis. 8. Continue home psych medications to help with impulsivity 9. Okay to leave the intensive care unit IMPRESSIONS: 1. Acute on chronic combined respiratory failure The patient has known end-stage COPD and chronic hypoxemic respiratory failure, along with baseline CO2 retention. Patient with rapid recovery back to baseline within 24 hours. She has questionable compliance with her outpatient noninvasive ventilator. Would continue with BiPAP therapy with sleep. Cannot exclude the need for intubation moving forward. We will continue to monitor in the intensive care unit. 2. Encephalopathy Back to baseline. Patient does have a history of seizure activity in the past. Dilantin level is likely improving. In addition, there is some question as to whether possible polypharmacy may have also been contributing. Plan to continue current antiepileptics along with seizure precautions and as needed Ativan. 3. Multifactorial shock/relative adrenal insufficiency Unclear etiology. Patient's infectious etiologies are minimal at this time. Patient does not have a leukocytosis or an elevated procalcitonin level. Patient does have a history of relative adrenal insufficiency. Patient can be weaned to 10 mg of prednisone until seen as an outpatient. Patient will be on pressors at this time. Blood pressure will likely improve with improvement in acidosis secondary to problem #1. 4. History of end-stage COPD/chronic hypoxemic respiratory failure/obstructive sleep apnea/frequent COPD exacerbations The patient has a known history of end-stage COPD with questionable outpatient medical compliance. The patient has had compliance issues in the past related to her supplemental oxygen use and noninvasive ventilator utilization. She will be maintained on scheduled bronchodilators for now. 5. History of hemorrhagic CVA/former tobacco dependency/history of cardiomyopathy/anxiety/depression Complicates care, management, recovery and prognosis. Replete potassium as indicated. See orders. Subjective Subjective Patient did okay overnight. Patient did wear BiPAP for 4 to 5 hours and mentation is back to baseline this morning. Patient is not reporting any pain, but does states she is not sleeping well. Patient is asking to go home to take a shower in my own shower. Objective Data Objective Data Vital Signs: Vital Signs Temp Pulse Resp BP Pulse Ox O2 Del Method O2 Flow Rate 36.6 C 85 18 109/61 100 Nasal Cannula 2 11/10/22 04:00 11/10/22 06:40 11/10/22 06:40 11/10/22 06:00 11/10/22 06:40 11/10/22 06:40 11/10/22 06:40 FiO2 30 11/10/22 04:00 Oxygen Flow Rate (L/min) 2 Oxygen Delivery Method Nasal Cannula Weight: 59.3 kg Body Mass Index (BMI) 23.1 Intake & Output: Intake and Output for Last 24 Hours 11/08/22 11/09/22 11/10/22 23:59 23:59 23:59 Intake Total 3059.29 / 3059.29 993.33 / 993.33 Output Total 0 / 0 0 / 0 Balance 3059.29 / 3059.29 993.33 / 993.33 Lab / Micro Data Attestation: I reviewed the patient's lab results. Result Diagrams: 11/10/22 04:20 11/10/22 04:20 Labs: Laboratory Results - last 24 hr 11/09/22 03:50: COVID-19 ([facility]) Not Detected 11/09/22 11:15: Troponin I High Sens 12 11/10/22 04:20: WBC 5.9, RBC 2.96 L, Hgb 8.4 L, Hct 27.6 L, MCV 93.2, MCH 28.4, MCHC 30.4 L, RDW Std Deviation 45.5 H, RDW Coeff of Deonte 13.3, Plt Count 128 L, MPV 10.3, Immature Gran % (Auto) 0.500, Neut % (Auto) 73.7 H, Lymph % (Auto) 18.2 L, [place] % (Auto) 7.1, Eos % (Auto) 0.2, Baso % (Auto) 0.3, Absolute Neuts (auto) 4.3, Absolute Lymphs (auto) 1.07, Nucleated RBC % 0 11/10/22 04:20: Sodium 145, Potassium 4.2, Chloride 112 H, Carbon Dioxide 30.0, Anion Gap 3 L, BUN 25 H, Creatinine 0.78, Estim Creat Clear Calc 44.54, Est GFR (MDRD) Af Amer 94, Est GFR (MDRD) Non-Af 78, BUN/Creatinine Ratio 32.0 H, Glucose 139 H, Calcium 8.1 L, Total Bilirubin < 0.10 L, AST 106 H, ALT 137 H, Alkaline Phosphatase 210 H, Total Protein 5.4 L, Albumin 2.6 L, Globulin 2.8, Albumin/Globulin Ratio 0.9 Micro: Microbiology 11/09/22 03:50 Mucosa - Nose Respiratory Panel (PCR) - Final 11/09/22 02:04 Nasal Secretion SARS-CoV-2 & FLU Antigen (Rapid) - Final Radiography Diagnostic Testing: Radiology Impression Liver Ultrasound 11/09/22 03:44 IMPRESSION: Status post cholecystectomy. Electronically Signed: Vinny Mcghee MD at 8:58 EDT , Physical Exam Const alert and average body habitus Constitutional Narrative: Upper middle-aged white female, appears older than stated age. On nasal cannula with no conversational dyspnea HEENT normocephalic, head/scalp atraumatic and hearing grossly normal bilaterally Eyes PERRL, EOMs intact bilaterally and conjunctivae normal Neck no lymphadenopathy, supple and No no JVD Neck Narrative: Trachea midline, no JVD noted, no thyroid enlargement Resp Resp Narrative: Diffuse inspiratory and expiratory wheezing with scattered crackles Auscultation: diminished lung sounds; Negative for rales, rhonchi or wheezes Cardio regular rate, regular rhythm, S1 normal heart sound, S2 normal heart sound, no murmurs, no rub, no gallops and no clicks GI normal to inspection, nondistended, normoactive bowel sounds, soft to palpation and non-tender Extremity no clubbing, cyanosis or edema Extremity Narrative: 2+ pedal pulses Skin no rashes or lesions noted, no wounds, skin turgor normal, no jaundice, no petechiae and no mottling Neuro oriented x3, CN's II-XII intact bilaterally, moves all extremities and no focal motor deficits Neuro Narrative: Unable to assess speech fully as patient was on BiPAP and vocal quality was muffled, follows all commands well Psych affect normal Mood & Affect: anxious Charges/Coding Visit Charges Inpatient E&M: 39283 Subs Hosp L2
--- NOTE | 2022-11-10 07:35 | PN.HOSP_ITS ---
Reason for Visit Reason for Visit: Diagnoses Acute and chronic respiratory failure with hypoxia (11/09/22) Acute and chronic respiratory failure with hypercapnia (11/09/22) Subjective Subjective Feeling much better today, breathing doing better. Didn't sleep well and wanted her Ambien resumed Objective Data Objective Data Vital Signs: Vital Signs Temp Pulse Resp BP Pulse Ox O2 Del Method O2 Flow Rate 97.9 F 89 18 122/71 H 100 Nasal Cannula 2 11/10/22 04:00 11/10/22 07:00 11/10/22 07:00 11/10/22 07:00 11/10/22 07:00 11/10/22 07:00 11/10/22 07:00 FiO2 30 11/10/22 04:00 Oxygen Flow Rate (L/min) 2 Oxygen Delivery Method Nasal Cannula Weight: 59.3 kg Body Mass Index (BMI) 23.1 Intake & Output: Intake and Output for Last 24 Hours 11/08/22 11/09/22 11/10/22 23:59 23:59 23:59 Intake Total 3059.29 / 3059.29 993.33 / 993.33 Output Total 0 / 0 0 / 0 Balance 3059.29 / 3059.29 993.33 / 993.33 Lab / Micro Data Result Diagrams: 11/10/22 04:20 11/10/22 04:20 Labs: Laboratory Results - last 24 hr 11/09/22 11:15: Troponin I High Sens 12 11/10/22 04:20: WBC 5.9, RBC 2.96 L, Hgb 8.4 L, Hct 27.6 L, MCV 93.2, MCH 28.4, MCHC 30.4 L, RDW Std Deviation 45.5 H, RDW Coeff of [place]onte 13.3, Plt Count 128 L, MPV 10.3, Immature Gran % (Auto) 0.500, Neut % (Auto) 73.7 H, Lymph % (Auto) 18.2 L, [place] % (Auto) 7.1, Eos % (Auto) 0.2, Baso % (Auto) 0.3, Absolute Neuts (auto) 4.3, Absolute Lymphs (auto) 1.07, Nucleated RBC % 0 11/10/22 04:20: Sodium 145, Potassium 4.2, Chloride 112 H, Carbon Dioxide 30.0, Anion Gap 3 L, BUN 25 H, Creatinine 0.78, Estim Creat Clear Calc 44.54, Est GFR (MDRD) Af Amer 94, Est GFR (MDRD) Non-Af 78, BUN/Creatinine Ratio 32.0 H, Glucose 139 H, Calcium 8.1 L, Total Bilirubin < 0.10 L, AST 106 H, ALT 137 H, Alkaline Phosphatase 210 H, Total Protein 5.4 L, Albumin 2.6 L, Globulin 2.8, Albumin/Globulin Ratio 0.9 Micro: Microbiology 11/09/22 03:50 Mucosa - Nose Respiratory Panel (PCR) - Final 11/09/22 02:04 Nasal Secretion SARS-CoV-2 & FLU Antigen (Rapid) - Final Radiography Diagnostic Testing: Radiology Impression Liver Ultrasound 11/09/22 03:44 IMPRESSION: Status post cholecystectomy. Electronically Signed: Vinny Mcghee MD at 8:58 EDT , Physical Exam Narrative General: Alert, oriented, no apparent distress HEENT: Atraumatic, normocephalic Eyes: Anicteric, normal conjunctiva, extraocular movements grossly intact Neck: Supple Respiratory: Somewhat diminished bilaterally, normal respiratory effort Cardiovascular: Regular rate and rhythm GI: Soft, nontender, nondistended Extremities: No edema Musculoskeletal: Moving all extremities Neuro: No overt focal neurological deficits Skin: No rashes appreciated Psych: Cooperative Assessment & Plan Assessment/Plan (1) Acute and chronic respiratory failure with hypercapnia: PLAN: Plan #Acute on chronic combined respiratory failure -pCO2 92.8 initially, on bipap w/ pCO2 80.3 -pO2 improved w/ bipap -Methypred, duonebs, alb prn -11/10: Significantly improved, on oral steroids, continue nebs. Discussed with ICU, okay to transfer to floor. Suspect large component of compliance difficulty contributing to her present admission #Metabolic encephalopathy?resolved -Suspected due to her respiratory failure in addition to polypharmacy -Is on zolpidem nightly but has not filled pain medication recently so will not continue this. Additionally did not appear to be taking Seroquel anymore, continued Abilify #Hypotension likely secondary to relative adrenal insufficiency -No identified infx process but given unclear etiology ballard cultured, no empiric abx at this time -Echo 1mon ago w/ apical hypokinesis but EF 55%, mod mitral insufficiency -If not improving can repeat but given close proximity this has not been ordered -Fluids ordered -Hold home metoprolol -Possibly component of adrenal insufficiency due to frequent steroids, is on Methylpred -11/10: Improved significantly, due to frequent admissions and frequent high-dose steroids may have aspect of adrenal insufficiency. Continue prednisone 40. Discussed with pulm, on discharge will taper down to 10 mg and she will follow- up with them on an outpatient basis #Chronic normocytic anemia -On 10/12 was 11.6 however chronically appears to run eights to nines, presently 8.4, do not feel there is any active bleeding. Continue to monitor #Transaminitis -likely 2/2 hypotension, improved on repeat -RUQ pending -11/10: Improving, likely secondary to hypotension and acute illness. Right upper quadrant unremarkable. Hepatitis panel negative #Seizure d/o -Phenytoin lvl 1.6, keppra level pending -Home doses in comp continued, unclear what she is supposed to be on at home -Does appear she is filling abilify and not seroquel or buspar so these were held and abilify continued #DVT ppx: Lovenox subcu Elenita Barber MD Time spent in the patient's overall evaluation,decision-making process, review of diagnostic data, adjustment of management, discussion with other providers, nursing nursing and ancillary staff involved in patient's care documentation, 30 Minutes Charges/Coding Visit Charges Inpatient E&M: 63347 Subs Hosp L2
[2022-11-10] MEDS: ARIPiprazole 2 MG Tablet PO (08:39)
[2022-11-10] MEDS: Aspirin 81 MG TAB.CHEW PO (08:39)
[2022-11-10] MEDS: Enoxaparin 40 MG/0.4 ML Syringe SC (08:40)
[2022-11-10] MEDS: Pantoprazole Sodium 40 MG Tablet PO (08:40)
[2022-11-10] MEDS: levETIRAcetam Oral Solution 500 MG/5 ML PO ×2 (08:47→22:29)
[2022-11-10] MEDS: predniSONE 20 MG Tablet 40 MG PO (08:49)
[2022-11-10] MEDS: Atorvastatin Calcium 40 MG Tablet PO (22:29)
[2022-11-10] MEDS: guaiFENesin 1,200 MG Tablet 1200 MG PO (22:29)
[2022-11-10] MEDS: MELATONIN 3 MG TABLET PO (22:29)
[2022-11-10] MEDS: Zolpidem Tartrate 5 MG Tablet PO (22:29)
[2022-11-11] VITALS (8 sets, daily range): BP systolic 110–133; BP diastolic 51–70; PULSE 77–94; RESP 12–24; TEMP 36.3–36.6; O2SAT 93–100; BMI 22.8
[2022-11-11 04:50] LABS: Absolute Lymphocyte Count 2.09 X10^3/uL (0.83-4.51); Absolute Neutrophil Count 3.2 X10^3/uL (2.0-7.7); Basophil# 0.04 X10^3/uL; Basophil% 0.7 % (0-1); Eosinophil# 0.05 X10^3/uL; Eosinophils% 0.9 % (0-5); Hemoglobin 8.8 g/dL (12.0-15.0); Lymphocyte # 2.09 X10^3/ul (0.83-4.51); Lymphocyte % 35.9 % (19-41); Mean Corp Hgb Conc 30.3 g/dL (32-36); Mean Corpuscular Hgb 27.9 pg (27.0-32.0); Mean Corpuscular Volume 92.1 fL (81-99); Mean Platelet Vol. 10.1 fl (6.2-12.0); Monocyte# 0.46 X10^3/uL; Monocyte% 7.9 % (0-10); NRBC Flagged by Analyzer 0 % (0-5); Neutrophil # 3.15 X10^3/uL (2.7-7.7); Neutrophil % 54.1 % (47-70); Platelet Count 140 K/mm3 (150-450); RBC Distribution Width CV 13.6 % (11.6-14.6); RBC Distribution Width SD 46.5 fl (35.1-43.9); Red Blood Count 3.15 M/mm3 (4.2-5.4); White Blood Count 5.8 K/mm3 (4.4-11.0)
[2022-11-11 05:24] LABS: AST(SGOT) 47 U/L (15-37); Alanine Aminotransfer ALT/SGPT 97 U/L (13-56); Albumin, Serum 2.7 g/dL (3.2-5.0); Alkaline Phosphatase 176 U/L (45-117); Anion Gap 3 (5-15); BUN 14 mg/dL (7-18); BUN/Creat Ratio 23.6 RATIO (10-20); Calcium,Total 8.7 mg/dL (8.5-10.1); Chloride 111 mmol/L (98-107); Creatinine, Serum 0.59 mg/dL (0.55-1.02); EST Glomerular Filtration Rate 107 mL/min (>60); Est Glom Filt Rate - Afr Amer 130 mL/min (>60); Estimated Creatinine Clearance 44.54 ml/min; Globulin 2.8 g/dL (2.2-4.2); Glucose 91 mg/dL (74-106); Potassium 3.5 mmol/L (3.5-5.1); Protein, Total 5.5 g/dL (6.4-8.2); Sodium Level 145 mmol/L (136-145)
[2022-11-11] MEDS: Ipratropium/Albuterol Sulfate 3 ML AMPUL.NEB INHALATION ×3 (07:21→14:36)
--- NOTE | 2022-11-11 08:10 | PN.CC_ITS ---
Assessment & Plan Assessment/Plan (1) Acute and chronic respiratory failure with hypercapnia: PLAN: Plan RECOMMENDATIONS: 1. Continue BiPAP with sleep 2. Attempt to keep saturations between 90 and 94% 3. Continue antiepileptics, along with seizure precautions. 4. Transition to prednisone therapy. Okay to taper to 10 mg until seen as an outpatient 5. Electrolyte repletion as indicated 6. Monitor off antimicrobials 7. Continue appropriate ICU prophylaxis. 8. Continue home psych medications to help with impulsivity 9. Okay to discharge with routine follow-up IMPRESSIONS: 1. Acute on chronic combined respiratory failure The patient has known end-stage COPD and chronic hypoxemic respiratory failure, along with baseline CO2 retention. Patient with rapid recovery back to baseline within 24 hours. She has questionable compliance with her outpatient noninvasive ventilator. Would continue with BiPAP therapy with sleep. Given rapidity of recovery, high clinical suspicion for gradual CO2 retention s econdary to medications and lack of compliance with noninvasive ventilator. 2. Encephalopathy Back to baseline. Patient does have a history of seizure activity in the past. Dilantin level is likely improving. In addition, there is some question as to whether possible polypharmacy may have also been contributing. Plan to continue current antiepileptics along with seizure precautions and as needed Ativan. 3. Multifactorial shock/relative adrenal insufficiency Unclear etiology. Patient's infectious etiologies are minimal at this time. Patient does not have a leukocytosis or an elevated procalcitonin level. Patient does have a history of relative adrenal insufficiency and this makes most sense in retrospect. Patient can be weaned to 10 mg of prednisone until seen as an outpatient. Patient will be on pressors at this time. Blood pressure will likely improve with improvement in acidosis secondary to problem #1. 4. History of end-stage COPD/chronic hypoxemic respiratory failure/obstructive sleep apnea/frequent COPD exacerbations The patient has a known history of end-stage COPD with questionable outpatient medical compliance. The patient has had compliance issues in the past related to her supplemental oxygen use and noninvasive ventilator utilization. She will be maintained on scheduled bronchodilators for now. 5. History of hemorrhagic CVA/former tobacco dependency/history of cardiomyopathy/anxiety/depression Complicates care, management, recovery and prognosis. Replete potassium as indicated. See orders. Subjective Subjective Patient transferred from the intensive care unit yesterday. No overnight events were reported. Patient overall feels that she is back to baseline at this time. Patient able to ambulate to the bathroom independently. No worsening pro ductive cough is been reported. Objective Data Objective Data Vital Signs: Vital Signs Temp Pulse Resp BP Pulse Ox O2 Del Method O2 Flow Rate 36.3 C L 82 24 H 133/70 H 96 Bi-pap 2 11/11/22 03:18 11/11/22 03:31 11/11/22 03:31 11/11/22 03:18 11/11/22 03:31 11/11/22 03:18 11/10/22 23:30 FiO2 30 11/11/22 03:31 Oxygen Flow Rate (L/min) 2 Oxygen Delivery Method Bi-pap Weight: 58.5 kg Body Mass Index (BMI) 22.8 Intake & Output: Intake and Output for Last 24 Hours 11/09/22 11/10/22 11/11/22 23:59 23:59 23:59 Intake Total 3059.29 / 3059.29 2111.66 / 2111.66 0 / 0 Output Total 0 / 0 0 / 0 Balance 3059.29 / 3059.29 2111.66 / 2111.66 0 / 0 Lab / Micro Data Attestation: I reviewed the patient's lab results. Result Diagrams: 11/11/22 04:38 11/11/22 04:38 Labs: Laboratory Results - last 24 hr 11/11/22 04:38: WBC 5.8, RBC 3.15 L, Hgb 8.8 L, Hct 29.0 L, MCV 92.1, MCH 27.9, MCHC 30.3 L, RDW Std Deviation 46.5 H, RDW Coeff of [place]onte 13.6, Plt Count 140 L, MPV 10.1, Immature Gran % (Auto) 0.500, Neut % (Auto) 54.1, Lymph % (Auto) 35.9, [place] % (Auto) 7.9, Eos % (Auto) 0.9, Baso % (Auto) 0.7, Absolute Neuts (auto) 3.2, Absolute Lymphs (auto) 2.09, Nucleated RBC % 0 11/11/22 04:38: Sodium 145, Potassium 3.5, Chloride 111 H, Carbon Dioxide 31.0, Anion Gap 3 L, BUN 14, Creatinine 0.59, Estim Creat Clear Calc 44.54, Est GFR (MDRD) Af Amer 130, Est GFR (MDRD) Non-Af 107, BUN/Creatinine Ratio 23.6 H, Glucose 91, Calcium 8.7, Total Bilirubin 0.10 L, AST 47 H, ALT 97 H, Alkaline Phosphatase 176 H, Total Protein 5.5 L, Albumin 2.7 L, Globulin 2.8, Album in/Globulin Ratio 1.0 Micro: Microbiology 11/09/22 02:20 Urine, Catheterized Urine Culture - Preliminary Culture exhibits no growth. 11/09/22 03:50 Mucosa - Nose Respiratory Panel (PCR) - Final 11/09/22 02:04 Nasal Secretion SARS-CoV-2 & FLU Antigen (Rapid) - Final Physical Exam Const alert and average body habitus Constitutional Narrative: Upper middle-aged white female, appears older than stated age. On nasal cannula with no conversational dyspnea HEENT normocephalic, head/scalp atraumatic and hearing grossly normal bilaterally Eyes PERRL, EOMs intact bilaterally and conjunctivae normal Neck no lymphadenopathy, supple and No no JVD Neck Narrative: Trachea midline, no JVD noted, no thyroid enlargement Resp Auscultation: diminished lung sounds; Negative for rales, rhonchi or wheezes Cardio regular rate, regular rhythm, S1 normal heart sound, S2 normal heart sound, no m urmurs, no rub, no gallops and no clicks GI normal to inspection, nondistended, normoactive bowel sounds, soft to palpation and non-tender Extremity no clubbing, cyanosis or edema Extremity Narrative: 2+ pedal pulses Skin no rashes or lesions noted, no wounds, skin turgor normal, no jaundice, no petechiae and no mottling Neuro oriented x3, CN's II-XII intact bilaterally, moves all extremities and no focal motor deficits Neuro Narrative: Unable to assess speech fully as patient was on BiPAP and vocal quality was muffled, follows all commands well Psych affect normal Mood & Affect: anxious Charges/Coding Visit Charges Inpatient E&M: 45177 Subs Hosp L2
[2022-11-11] MEDS: levETIRAcetam Oral Solution 500 MG/5 ML PO (08:55)
[2022-11-11] MEDS: guaiFENesin 1,200 MG Tablet 1200 MG PO (08:55)
[2022-11-11] MEDS: Phenytoin Na 100 MG/4 ML UDC PO ×2 (08:55→13:51)
[2022-11-11] MEDS: ARIPiprazole 2 MG Tablet PO (08:56)
[2022-11-11] MEDS: Enoxaparin 40 MG/0.4 ML Syringe SC (08:56)
[2022-11-11] MEDS: predniSONE 20 MG Tablet 40 MG PO (08:56)
[2022-11-11] MEDS: Aspirin 81 MG TAB.CHEW PO (08:56)
[2022-11-11] MEDS: Pantoprazole Sodium 40 MG Tablet PO (08:56)
--- NOTE | 2022-11-11 11:34 | PCM.DC.SUM ---
Providers Date of Admission: 11/09/22 Date of Discharge: 11/11/22 Primary Care Physician: Dr. Maryam Pineda MD Consultations 11/09/22 04:43 Consult: Mold Finisher / Pulmonary Medicine Routine Consulting Provider: Anurag Flannery Reason for Consult: Resp failure, COPD, Hypotension, Transaminitis EMERGENT Consult: No MD Notified: Yes Date Notified: 11/09/22 Time Notified: 03:45 Method of Notification: Text Reason For Visit: RESP FAILURE, UNDIFFERENTIATED SHOCK,COPD Diagnosis Discharge Diagnosis (1) Acute and chronic respiratory failure with hypercapnia: Status: Chronic Code(s): J96.22 - Acute and chronic respiratory failure with hypercapnia Plan #Acute on chronic combined respiratory failure 2/2 acute on chronic COPD exacerbation secondary to difficulties with compliance and using home inhaler #Metabolic encephalopathy secondary to her acute on chronic combined respiratory failure?resolved #Hypotension likely secondary to relative adrenal insufficiency?resolved #Chronic normocytic anemia #Transaminitis?secondary to her hypotension and this improved #Seizure d/o Medications at Discharge Home Medications aspirin 81 mg tablet 81 mg PO DAILY heart health 11/03/20 cholecalciferol (vitamin D3) 25 mcg (1,000 unit) tablet (Vitamin D3) 25 mcg PO DAILY supplement 11/03/20 pantoprazole 40 mg tablet,delayed release (Protonix) 40 mg PO DAILY GERD 11/03/20 albuterol sulfate 2.5 mg/3 mL (0.083 %) solution for nebulization 2.5 mg (3 mL) inhalation Q2H PRN PRN Dyspnea, wheezing #0 mL 07/25/22 ipratropium 0.5 mg-albuterol 3 mg (2.5 mg base)/3 mL nebulization soln 3 ml inhalation Q6HWA.RT #0 mL 07/25/22 potassium chloride 20 mEq/15 mL oral liquid 40 meq (30 mL) G-tube BID #0 mL 07/25/22 zolpidem 5 mg tablet (Ambien) 5 mg PO QHS PRN insomnia 30 days #30 tabs 07/25/22 aripiprazole 2 mg tablet (Abilify) 2 mg PO DAILY mental health 08/25/22 atorvastatin 40 mg tablet 40 mg PO QHS cholesterol 08/25/22 metoprolol succinate 25 mg tablet,extended release 24 hr 25 mg PO DAILY blood pressure 08/25/22 phenytoin 100 mg/4 mL oral suspension 100 mg (4 mL) PO Q8 30 days #360 mL 10/12/22 duloxetine 30 mg capsule,delayed release 2 mg PO DAILY mental health 11/11/22 fluticasone fur. 100 mcg-umeclid 62.5 mcg-vilant 25 mcg inhalat.powder (Trelegy Ellipta) 1 inh inhalation DAILY 30 days #60 ea 11/11/22 furosemide 20 mg tablet 20 mg BIDCM diuretic 11/11/22 mirtazapine 7.5 mg tablet 7.5 mg PO QHS #30 tabs 11/11/22 prednisone 20 mg tablet See Taper PO BREAKFAST #20 tabs 11/11/22 ropinirole 1 mg tablet 1 mg PO DAILY restless legs 11/11/22 Hospital Course Summary of Care Provided Minutes Spent on Discharge: 70 Hospital Course: 59-year-old female history of seizure disorder, COPD with chronic hypoxic respiratory failure on 2 L home O2 with previous tracheostomy, chronic diastolic CHF with history of Takotsubo cardiomyopathy, chronic dysphagia with history of aspiration and prior PEG tube, GERD, history of CVA most recently 2021, history of VTE and multiple hospitalizations for acute on chronic hypoxic hypercapnic respiratory failure felt in part to be due to difficulties with patient's with her NIPPV. She presented 11/09 with confusion and hypoxia and was diagnosed with acute on chronic combined respiratory failure secondary to COPD exacerbation but additionally had hypotension and required ICU admission and to be placed on BiPAP. PCO2 92.8 initially and on BiPAP and began improving with recheck of 80.3. She received DuoNebs and IV Methylpred and ICU/pulm was following. Improved significantly and hypotension was felt to possibly be due to relative adrenal insufficiency given her very frequent prednisone prescriptions because her exacerbations and her COPD exacerbation felt to be due to difficulties with compliance. She improved quickly and her metabolic encephalopathy secondary to her acute hypoxic hypercapnic respiratory failure resolved. Her Ambien was held on admission due to her low blood pressures and respiratory distress, she was transferred to the floor given improvement day prior to discharge Ambien at home dose was added back on. In the a.m. patient had reported overnight she was confused and called her daughter and did not remember that. Was somewhat sleepy in the morning but improved back to baseline during the day. Discussed extensively with her and her daughter about Ambien and side effects and that given the direct correlation and complete resolution that this is the most likely culprit. Discussed her chronic insomnia and supportive care provided. Discussed with pulm who recommended slow taper of prednisone and to keep her on 10 mg until her follow-up appointment. During discharge process reviewed external medication fill history and it appeared inconsistent with our current medications listed, attempted to update to best of ability and advised patient and her daughter that they write down all of the medication she is taking and take this to all doctors appointments into the hospital so this can be appropriately updated as it appears she supposed be taking Trelegy Ellipta however she has been feeling Incruse Ellipta from her PCP instead of Trelegy Ellipta from her investment manager which is likely at least in part causing her frequent readmissions. It is also divulged that she does not wear her BiPAP every night because the mask hurts her and her daughter reported that they are getting 2 more masks for her to try. Stressed importance of BiPAP and compliance. All questions answered from daughter, patient, . On day of discharge after discussing the confusion being due to the Ambien she felt better, mentally was back to baseline and breathing adequate and ultimately she was agreeable with discharge. Discharge instructions as follows: -Please follow-up with pulmonology upon discharge.? You have and appointment scheduled 11/16 at 2:15 PM.? Please call their office for any questions or concerns scheduling -You will be discharged on a prednisone taper: ? -40mg daily x3 days ? -30mg daily x3 days ? -20mg daily x3 days ? -10mg daily x3 days -Your external fill history showed you have most recently filled Incruse Ellipta for your breathing however your pulmonary office has previously prescribed Trelegy Ellipta which will be more beneficial for your breathing with your COPD.??We will send in a prescription for trilogy Ellipta, it is imperative for your breathing that you fill this and would advise discontinuing the Incruse Ellipta when you have obtained prescription.? If there are any problems filling this or with insurance please contact your pulmonology office for further instructions/prescription -It is advised that you hold off on taking Ambien until discussing with your prescribing physician given your episode of confusion after this was restarted in the hospital -We discussed your difficulty with sleep and anxiety and a medication called mirtazapine, will prescribe 7.5 mg at bedtime which should help sleeping, would not take this with the Ambien until you know how it affects you and until you have discussed with your primary doctor -Your medication fill list indicated you had filled both Cymbalta (duloxetine) and Lexapro (escitalopram), would recommend continuing Cymbalta and no longer taking Lexapro if you have still been taking this as these medications can have negative interactions together. -Please continue all/any home seizure medications as previously prescribed -Please continue other home medications as prescribed.? If there are any questions about any of your medications please contact your primary care physician -Please call your primary care provider's office upon discharge to schedule a hospital follow up within 1 week. (Appointment listed as scheduled at 11/13/2022 at 11:20 AM).? You additionally have a cardiology appointment 11/20/2022 at 3 PM that will be imperative for you to attend -For any concerning signs or symptoms please call 911 or proceed to the nearest emergency department Physical Exam Narrative General: Alert, oriented, no apparent distress HEENT: Atraumatic, normocephalic Eyes: Anicteric, normal conjunctiva, extraocular movements grossly intact Neck: Supple Respiratory: Somewhat diminished bilaterally, normal respiratory effort Cardiovascular: Regular rate and rhythm GI: Soft, nontender, nondistended Extremities: No edema Musculoskeletal: Moving all extremities Neuro: No overt focal neurological deficits Skin: No rashes appreciated Psych: Cooperative Weight / BMI Weight Weight: 58.5 kg Body Mass Index (BMI) 22.8 ABG / Lab / Microbiology Data Result Diagrams: 11/11/22 04:38 11/11/22 04:38 Laboratory: Laboratory Results - last 24 hr 11/11/22 04:38: WBC 5.8, RBC 3.15 L, Hgb 8.8 L, Hct 29.0 L, MCV 92.1, MCH 27.9, MCHC 30.3 L, RDW Std Deviation 46.5 H, RDW Coeff of Deonte 13.6, Plt Count 140 L, MPV 10.1, Immature Gran % (Auto) 0.500, Neut % (Auto) 54.1, Lymph % (Auto) 35.9, Cottle % (Auto) 7.9, Eos % (Auto) 0.9, Baso % (Auto) 0.7, Absolute Neuts (auto) 3.2, Absolute Lymphs (auto) 2.09, Nucleated RBC % 0 11/11/22 04:38: Sodium 145, Potassium 3.5, Chloride 111 H, Carbon Dioxide 31.0, Anion Gap 3 L, BUN 14, Creatinine 0.59, Estim Creat Clear Calc 44.54, Est GFR (MDRD) Af Amer 130, Est GFR (MDRD) Non-Af 107, BUN/Creatinine Ratio 23.6 H, Glucose 91, Calcium 8.7, Total Bilirubin 0.10 L, AST 47 H, ALT 97 H, Alkaline Phosphatase 176 H, Total Protein 5.5 L, Albumin 2.7 L, Globulin 2.8, Albumin/Globulin Ratio 1.0 Microbiology: Microbiology 11/09/22 02:20 Urine, Catheterized Urine Culture - Final Culture exhibits no growth. 11/09/22 03:50 Mucosa - Nose Respiratory Panel (PCR) - Final 11/09/22 02:04 Nasal Secretion SARS-CoV-2 & FLU Antigen (Rapid) - Final D/C Instructions Discharge Diet: - (DASH diet, 3000 mg sodium restriction, 2 L fluid restriction) Meaningful Use Info Meaningful Use Diagnoses (Choose all that apply): None applicable Discharge Plan Admission Admit Date/Time: 11/09/22 03:37 Primary Reason for Your Visit: Shortness of breath Attending Provider: Elenita Barber Primary Care Provider: Maryam Pineda Consulting Providers: Yazmin Buitrago ; Anurag Flannery Instructions Patient Instructions: Asthma and COPD, Asthma COPD Trigger Control Additional Instructions / Restrictions: DISCHARGE INSTRUCTIONS PLEASE READ *Please take this with you to your next doctors appointment* -Please follow-up with pulmonology upon discharge. You have and appointment scheduled 11/16 at 2:15 PM. Please call their office for any questions or concerns scheduling -You will be discharged on a prednisone taper: -40mg daily x3 days -30mg daily x3 days -20mg daily x3 days -10mg daily x3 days -Your external fill history showed you have most recently filled Incruse Ellipta for your breathing however your pulmonary office has previously prescribed Trelegy Ellipta which will be more beneficial for your breathing with your COPD. We will send in a prescription for trilogy Ellipta, it is imperative for your breathing that you fill this and would advise discontinuing the Incruse Ellipta when you have obtained prescription. If there are any problems filling this or with insurance please contact your pulmonology office for further instructions/prescription -It is advised that you hold off on taking Ambien until discussing with your prescribing physician given your episode of confusion after this was restarted in the hospital -We discussed your difficulty with sleep and anxiety and a medication called mirtazapine, will prescribe 7.5 mg at bedtime which should help sleeping, would not take this with the Ambien until you know how it affects you and until you have discussed with your primary doctor -Your medication fill list indicated you had filled both Cymbalta (duloxetine) and Lexapro (escitalopram), would recommend continuing Cymbalta and no longer taking Lexapro if you have still been taking this as these medications can have negative interactions together. -Please continue all/any home seizure medications as previously prescribed -Please continue other home medications as prescribed. If there are any questions about any of your medications please contact your primary care physician -Please call your primary care provider's office upon discharge to schedule a hospital follow up within 1 week. (Appointment listed as scheduled at 11/13/2022 at 11:20 AM). You additionally have a cardiology appointment 11/20/2022 at 3 PM that will be imperative for you to attend -For any concerning signs or symptoms please call 911 or proceed to the nearest emergency department Discharge Orders/Prescriptions Prescriptions: New prednisone 20 mg Tablet See Taper PO BREAKFAST Qty: 20 0RF Taper: Prednisone Taper 40 mg WITH BREAKFAST for 3 Days and 0 Hour 30 mg WITH BREAKFAST for 3 Days and 0 Hour 20 mg WITH BREAKFAST for 3 Days and 0 Hour 10 mg WITH BREAKFAST for 7 Days and 0 Hour mirtazapine 7.5 mg tablet 7.5 mg PO QHS Qty: 30 0RF Continued atorvastatin 40 mg tablet 40 mg PO QHS MDD 40 metoprolol succinate 25 mg tablet extended release 24 hr 25 mg PO DAILY MDD 25 aripiprazole [Abilify] 2 mg tablet 2 mg PO DAILY MDD 2mg pantoprazole [Protonix] 40 mg Tablet,Delayed Release (Dr/Ec) 40 mg PO DAILY aspirin 81 mg Tablet 81 mg PO DAILY cholecalciferol (vitamin D3) [Vitamin D3] 25 mcg (1,000 unit) Tablet 25 mcg PO DAILY ipratropium-albuterol 0.5 mg-3 mg(2.5 mg base)/3 mL Solution For Nebulization 3 ml inhalation Q6HWA.RT Qty: 0 0RF albuterol sulfate 2.5 mg /3 mL (0.083 %) Solution For Nebulization 2.5 mg inhalation Q2H PRN PRN (Reason: Dyspnea, wheezing) Qty: 0 0RF potassium chloride 20 mEq/15 mL Liquid 40 meq G-tube BID Qty: 0 0RF phenytoin 100 mg/4 mL Suspension 100 mg PO Q8 30 Days Qty: 360 2RF ropinirole 1 mg tablet 1 mg PO DAILY MDD 1 furosemide 20 mg tablet 20 mg BIDCM MDD 40 duloxetine 30 mg capsule,delayed release(DR/EC) 2 mg PO DAILY MDD 60 Trelegy Ellipta 100-62.5-25 mcg blister with device 1 inh INHALATION DAILY 30 Days Qty: 60 0RF Held zolpidem [Ambien] 5 mg tablet 5 mg PO QHS PRN (Reason: insomnia) 30 Days Qty: 30 0RF Hold Instructions: Resume on 11/18/22. Please hold discussing with your prescribing physician given your episode of confusion Discontinued meloxicam 15 mg tablet 15 mg DAILY PRN (Reason: Pain) Label Comments: TAKE 1 TABLET BY MOUTH ONCE DAILY NEEDED FOR PAIN, TAKE WITH FOOD escitalopram oxalate 20 mg tablet 20 mg PO DAILY MDD 20 Label Comments: Take 1 tablet by mouth once daily. Incruse Ellipta 62.5 mcg/actuation blister with device 1 inh INHALATION BID MDD 2 cehvadzzevz-bnmdzkqol-bzzhznpi 100-62.5-25 mcg blister with device 1 inh inhalation DAILY Qty: 60 11RF Referrals / Follow Up: Ema Stevens NP, CRATING AND MOVING ESTIMATOR-C [Med Staff - Adv Practice Prof] - 11/16/22 2:15 pm (As previously scheduled ) JOAN ROMERO NP-C [Non-Staff] - 11/13/22 11:20 am Severo Neal NP, CRATING AND MOVING ESTIMATOR-C [Med Staff - Adv Practice Prof] - 11/20/22 3:00 pm Disposition Disposition (needs filled in before D/C Order can be placed): Home Health Service Charges/Coding Visit Charges Inpatient E&M: 42299 Disch Hosp >30min
--- NOTE | 2022-11-11 14:04 | CASEMGMT ---
Addendum entered by Carla Azevedo 11/11/22 14:49: Daughter at beside. FINESSE LALA updated daughter regarding [facility] with resumption of care setup for tomorrow. FINESSE LALA reminded family to bring portable tank for at discharge, daughter voiced understanding. Daughter states she is concerned about patient being discharge today after episode of confusion last night, nursing updated and nursing to notify hospitalist. Daughter and patient denied further needs at discharge at this time. Original Note: FINESSE LALA called [facility] to updated that patient will be discharging today. PT/OT/LABOR DELIVERY RN added to resumption of SN order. FINESSE LALA called [facility] [place] to verify is patient needs new order for overnight pulse ox at discharge. FINESSE LALA attempted to call daughter Ameena to updated regarding discharge plan and need for oxygen tank at discharge. No answer, unable to leave message as voicemail box is not setup. FINESSE LALA updated palliative regarding discharge today. CM will continue to follow this patient and plan for a safe discharge.
--- NOTE | 2022-11-11 14:57 | PHA.DC.MC ---
Pharmacy Service has performed discharge medication reconciliation and counseling for this patient. Patient and patient's daughter upset about holding Ambien and switching to mirtazapine claiming Ambien is the only thing the helps her sleep and mirtazapine doesn't touch her. Told patient I would speak to Dr. Barber. Nurse had already contacted Dr. Barber and she is coming to talk to patient. 1. MIRTAZAPINE 7.5MG PO DAILY 2. PREDNISONE 40MG PO BREAKFAST X 3 DAYS, THEN 30MG X 3 DAYS, THEN 20MG X 3 DAYS, THEN 10MG X 7 DAYS The patient's discharge medication list was reviewed for discrepancies and discrepancies were resolved. Home Medications aspirin 81 mg tablet 81 mg PO DAILY heart health 11/03/20 cholecalciferol (vitamin D3) 25 mcg (1,000 unit) tablet (Vitamin D3) 25 mcg PO DAILY supplement 11/03/20 pantoprazole 40 mg tablet,delayed release (Protonix) 40 mg PO DAILY GERD 11/03/20 albuterol sulfate 2.5 mg/3 mL (0.083 %) solution for nebulization 2.5 mg (3 mL) inhalation Q2H PRN PRN Dyspnea, wheezing #0 mL 07/25/22 ipratropium 0.5 mg-albuterol 3 mg (2.5 mg base)/3 mL nebulization soln 3 ml inhalation Q6HWA.RT #0 mL 07/25/22 potassium chloride 20 mEq/15 mL oral liquid 40 meq (30 mL) G-tube BID #0 mL 07/25/22 zolpidem 5 mg tablet (Ambien) 5 mg PO QHS PRN insomnia 30 days #30 tabs 07/25/22 aripiprazole 2 mg tablet (Abilify) 2 mg PO DAILY mental health 08/25/22 atorvastatin 40 mg tablet 40 mg PO QHS cholesterol 08/25/22 metoprolol succinate 25 mg tablet,extended release 24 hr 25 mg PO DAILY blood pressure 08/25/22 phenytoin 100 mg/4 mL oral suspension 100 mg (4 mL) PO Q8 30 days #360 mL 10/12/22 duloxetine 30 mg capsule,delayed release 2 mg PO DAILY mental health 11/11/22 fluticasone fur. 100 mcg-umeclid 62.5 mcg-vilant 25 mcg inhalat.powder (Trelegy Ellipta) 1 inh inhalation DAILY 30 days #60 ea 11/11/22 furosemide 20 mg tablet 20 mg BIDCM diuretic 11/11/22 mirtazapine 7.5 mg tablet 7.5 mg PO QHS #30 tabs 11/11/22 prednisone 20 mg tablet See Taper PO BREAKFAST #20 tabs 11/11/22 ropinirole 1 mg tablet 1 mg PO DAILY restless legs 11/11/22 The patient was counseled on the following discharge medications and changes in medications for homegoing were reviewed. The Reason for Use, instructions for use, and potential side effects were reviewed for all new medications. The patient's questions regarding all of their medications were answered. The patient was able to verbally demonstrate an understanding of their discharge medications.
[2022-11-11] MEDS: Acetaminophen 325 MG Tablet 650 MG PO (17:56)
[2022-11-12 10:08] LABS: HEPATITIS B SURFACE AG Negative (Negative); Hep C Antibodies Non Reactive (Non Reactive); Hepatitis A IgM Antibody Negative (Negative); Hepatitis B Core AB IgM Negative (Negative); KEPPRA (LEVETIRACETAM) <2.0 ug/mL (10.0-40.0)
== END 2022-11-11 18:03 | disposition home health service (06) | DRG 189 ==
LOC: ED 02:09 → ICU 03:58 → PCU 11-10 09:40
PROVIDERS: Admitting Provider Family Medicine; Emergency Provider Emergency Medicine; PCP Internal Medicine; Visit Provider Internal Medicine
DX: J96.21 Acute and chronic respiratory failure with hypoxia (principal); G93.41 Metabolic encephalopathy; R57.9 Shock, unspecified; J44.1 Chronic obstructive pulmonary disease with (acute) exacerbation; I42.8 Other cardiomyopathies; E27.40 Unspecified adrenocortical insufficiency; E87.20 Acidosis, unspecified; I50.32 Chronic diastolic (congestive) heart failure; J96.22 Acute and chronic respiratory failure with hypercapnia; I11.0 Hypertensive heart disease with heart failure; G40.909 Epilepsy, unspecified, not intractable, without status epilepticus; E78.5 Hyperlipidemia, unspecified; K21.9 Gastro-esophageal reflux disease without esophagitis; G47.33 Obstructive sleep apnea (adult) (pediatric); I34.0 Nonrheumatic mitral (valve) insufficiency; F41.9 Anxiety disorder, unspecified; D64.9 Anemia, unspecified; G25.81 Restless legs syndrome; F32.A Depression, unspecified; Z87.891 Personal history of nicotine dependence; Z79.82 Long term (current) use of aspirin; Z79.51 Long term (current) use of inhaled steroids; Z91.199 Patient's noncompliance with other medical treatment and regimen due to unspecified reason; Z86.73 Personal history of transient ischemic attack (TIA), and cerebral infarction without residual deficits; R74.01 Elevation of levels of liver transaminase levels
CPT/HCPCS: 36415; 36600; 71045; 76705; 80053; 80074; 80177; 80185; 81001; 82803; 83605; 83880; 84145; 84484; 85025; 85610; 85730; 87040; 87086; 87428; 87633; 87635; 92526; 93005; 94002; 94003; 94640; 94668; 94762; 97162; 97166; 99252; 99285; J7030; J7040; J7050; A4216; G0463; U0003; U0005

== ENCOUNTER 2023-08-05 17:36 | Emergency (ER) | payer MEDICARE, SELFPAY ==
[2023-08-05 17:37] VITALS: BP 122/48; PULSE 108; RESP 24; TEMP 37.4; O2SAT 94; BMI 25.8
--- NOTE | 2023-08-05 18:06 | CT_ITS ---
STUDY: CT BRAIN WITHOUT CONTRAST REASON FOR EXAM: Female, 67 years old. trauma/fall RADIATION DOSAGE (If Supplied By Facility): CTDIvol = ( 44.99 ) mGy, DLP = ( 812.98 ) mGycm TECHNIQUE: Transaxial CT imaging of the brain was performed without administration of intravenous contrast material. Individualized dose optimization techniques were used for this CT. COMPARISON: 06/29/2022 FINDINGS: Normal soft tissue structures. Stable post craniotomy changes of the right side of the calvarium. There appears to be a minimal subdural hemorrhage along the anterior falx cerebri, no more than 3 mm across and with no mass effect. Stable encephalomalacia from previous infarcts in both the right parietal occipital, and the left parietal regions. There is mild cerebral atrophy with widening of the extra-axial spaces and ventricular dilatation. There are areas of decreased attenuation within the white matter tracts of the supratentorial brain, consistent with microvascular disease changes. Normal basal ganglia and thalami. Normal brainstem. Normal cerebellum. There is no intracranial hemorrhage. There are no findings of an acute ischemic infarction. Normal visualized paranasal sinuses. CT/Brain/Head without Contrast IMPRESSION: Minimal subdural hematoma localized to the anterior falx cerebri. No other changes. Previous infarcts. Electronically Signed: Deejay Weinberg MD at 18:48 EST ,
--- NOTE | 2023-08-05 18:09 | ED.VIS.FALL ---
HPI HPI - Fall History of Present Illness Chief Complaint: Fall Informant: patient, family and EMS Narrative Narrative: Patient found on the bedroom floor by her today after it sounded like she fell. She was awake and yelling for him to come. Does not suspect loss of consciousness but the patient does not remember anything. He states it looked like she was trying to walk from the bed where she had been sleeping, to the living room. The floor was carpeted. There was blood on a nearby dresser that it look like she struck with her head. She denies having any pain right now including her head. and family state that she has been a little confused today and yesterday. She has history of episodes of confusion, unknown causes in the past, but she has a history of stroke and traumatic intracranial hemorrhages. She is on no anticoagulants or antiplatelets for that reason. No recent illness that they know of. Has been incontinent of urine intermittently for months. Also has been sometimes refusing to use her nightly CPAP, which has in the past been a cause of confusion in her. [facility] Medical History Anxiety and depression Aspiration pneumonia due to gastric secretions Benign neoplasm of colon Carcinoma in situ of breast Chronic anemia COPD (chronic obstructive pulmonary disease) Daytime hypersomnia Diastolic CHF Essential (primary) hypertension GERD (gastroesophageal reflux disease) Hemorrhagic cerebrovascular accident (CVA) (02/09/17) History of alcohol abuse History of DVT of lower extremity (02/11/17) History of non-ST elevation myocardial infarction (NSTEMI) (02/03/17) Hyperlipidemia Insomnia Ischemic cerebrovascular accident (CVA) (02/06/17) Non-ischemic cardiomyopathy Non-rheumatic mitral regurgitation Noncompliance TIO (obstructive sleep apnea) Secondary pulmonary arterial hypertension Takotsubo cardiomyopathy (06/17/21) Home Medications aspirin 81 mg tablet 81 mg PO DAILY heart health 11/03/20 [History Last Taken Unknown] cholecalciferol (vitamin D3) 25 mcg (1,000 unit) tablet (Vitamin D3) 25 mcg PO DAILY supplement 11/03/20 [History Last Taken Unknown] pantoprazole 40 mg tablet,delayed release (Protonix) 40 mg PO DAILY GERD 11/03/20 [History Last Taken Unknown] potassium chloride 20 mEq/15 mL oral liquid 40 meq (30 mL) G-tube BID #0 mL 07/25/22 [Rx Last Taken Unknown] zolpidem 5 mg tablet (Ambien) 5 mg PO QHS PRN insomnia 30 days #30 tabs 07/25/22 [Rx Last Taken Unknown] aripiprazole 2 mg tablet (Abilify) 2 mg PO DAILY mental health 08/25/22 [History Last Taken Unknown] atorvastatin 40 mg tablet 40 mg PO QHS cholesterol 08/25/22 [History Last Taken Unknown] metoprolol succinate 25 mg tablet,extended release 24 hr 25 mg PO DAILY blood pressure 08/25/22 [History Last Taken Unknown] phenytoin 100 mg/4 mL oral suspension 100 mg (4 mL) PO Q8 30 days #360 mL 10/12/22 [Rx Last Taken Unknown] duloxetine 30 mg capsule,delayed release 2 mg PO DAILY mental health 11/11/22 [History Last Taken Unknown] furosemide 20 mg tablet 20 mg BIDCM diuretic 11/11/22 [History Last Taken Unknown] mirtazapine 7.5 mg tablet 7.5 mg PO QHS #30 tabs 11/11/22 [Rx Last Taken Unknown] albuterol sulfate 2.5 mg/3 mL (0.083 %) solution for nebulization 2.5 mg (3 mL) inhalation Q2H PRN PRN Dyspnea, wheezing #180 mL 06/30/23 [Rx Last Taken Unknown] albuterol sulfate 90 mcg/actuation aerosol inhaler 2 inh inhalation Q4H #8.5 grams 06/30/23 [Rx Last Taken Unknown] fluticasone fur. 100 mcg-umeclid 62.5 mcg-vilant 25 mcg inhalat.powder (Trelegy Ellipta) 1 inh inhalation DAILY 30 days #60 ea 06/30/23 [Rx Last Taken Unknown] ipratropium 0.5 mg-albuterol 3 mg (2.5 mg base)/3 mL nebulization soln 3 ml inhalation Q6HWA.RT #180 mL 06/30/23 [Rx Last Taken Unknown] nystatin 100,000 unit/mL oral suspension 5 ml mucous membrane TID #250 mL 06/30/23 [Rx Last Taken Unknown] Allergy/AdvReac Type Severity Reaction Status Date / Time tetanus and diphtheria Allergy Hives Verified 08/05/23 17:37 toxoids [tetanus & diphtheria toxoids] Family History Sister Cancer lung Father Cancer lung Mother Cancer lung Surgical History H/O: section History of bilateral cataract extraction History of cholecystectomy History of left heart catheterization (06/17/21) History of lumpectomy History of tracheostomy Hx of appendectomy S/P percutaneous endoscopic gastrostomy (PEG) tube placement Social History household members: none Smoking Status: Former smoker how long ago did patient quit smokin, 1pk/day second hand exposure: Yes alcohol intake: former substance use type: does not use what type of physical activity do you participate in: walking frequency: daily ROS ROS ED Review of Systems ROS Unobtainable: due to mental status Cardiovascular Cardiovascular: Denies chest pain Gastrointestinal Gastrointestinal: Denies abdominal pain or nausea Musculoskeletal Musculoskeletal: Denies back pain or neck pain Integumentary Reports laceration Neurologic Neurologic: Denies headache(s) or paresthesias EXAM Physical Exam Const Vital Signs: 08/05/23 17:37 08/05/23 17:43 Temperature 99.4 F H Temperature Source Oral Pulse Rate 108 H Respiratory Rate 24 H Respiratory Effort Normal Non-Labored Blood Pressure 122/48 H Blood Pressure Mean 72 Pulse Ox 94 Oxygen Delivery Method Nasal Cannula Oxygen Flow Rate (L/min) 2 Positive well nourished and well developed General Appearance ED: well developed and NAD HEENT Reports moist mucous membranes HEENT Narrative: Trauma to the occipital scalp with a hematoma, no crepitance or depression, but there is a 3 cm linear full-thickness laceration, no arterial bleeding from it. No other signs of HEENT trauma. normocephalic and trauma Eyes PERRL and EOMs intact bilaterally Neck full ROM and supple Resp normal respiratory effort and clear to auscultation bilaterally Cardio regular rate, regular rhythm and no murmurs GI non-tender and non-distended Auscultation: normoactive bowel sounds Palpation: soft Back/Spine no CVA tenderness General Back: other FROM Extremity normal to inspection General Extremety ED: Negative for edema, pulses abnormal or tenderness General Extremity: Negative for edema or pulses abnormal Neuro CN's II-XII intact bilaterally and no sensory deficits noted Basil Coma Scale: document GCS findings Spontaneous Obeys Commands Confused 14 Sensorium / Orientation: awake, alert, oriented to person and orientation impaired; Negative for oriented to time Motor Exam: general weakness Skin no rashes or lesions noted Skin Narrative: 3 cm full-thickness linear clean laceration occipital scalp see above. No other signs of trauma or lacerations or wounds. MDM MDM MDM Narrative Medical decision making narrative: Workup included a CT of the head due to her trauma but also medical testing to evaluate for metabolic disturbance, hematologic disturbance, infection, any of which could be causing her confusion. She does not have any lateralizing neurologic deficits peripherally. I reviewed the head CT images and the result, it appears to show an anterior falx subdural hemorrhage, however I am concerned that the report says this but also says no acute intracranial hemorrhage. I had this clarified by discussing with the radiologist who confirms that the patient does have an acute subdural hemorrhage, and no intraparenchymal hemorrhage. Patient would like to try to stay close and go to [facility]. The medical workup is unremarkable except for high bicarb which is probably due to chronic CO2 retention, she is on chronic oxygen therapy. Chest x-ray 2 views of mitral rotation shows no acute pneumonia, radiology in agreement. EKG normal, troponin unremarkable. The CT showed is that she has a very small subdural without any signs of mass effect at this time. Clinically she maintains Kiene level of alertness, able to follow commands, although she is a little confused GCS 14. Do not think she needs to be intubated prior to transfer, her airway is widely patent and she is conversive in full sentences. Will continue to watch her closely. She is not on any anticoagulant medications right now that require reversal. She is on a baby aspirin. She is not significantly thrombocytopenic with platelet count at 129,000. spoke with ED physician Dr. Ponce at [facility], who accepts the transfer. History & Record Review Discussion w/independent historian: EMS personnel, Patient and Family Lab Data Attestation: I reviewed the patient's lab results. Labs: Laboratory Results - last 24 hr 08/05/23 08/05/23 18:15 19:15 WBC 5.9 RBC 3.66 L Hgb 10.2 L Hct 35.2 L MCV 96.2 MCH 27.9 MCHC 29.0 L RDW Std Deviation 47.4 H RDW Coeff of Deonte 13.2 Plt Count 129 L MPV 10.4 Immature Gran % (Auto) 1.000 H Neut % (Auto) 71.8 H Lymph % (Auto) 14.9 L [place] % (Auto) 7.0 Eos % (Auto) 4.6 Baso % (Auto) 0.7 Absolute Neuts (auto) 4.2 Absolute Lymphs (auto) 0.87 Nucleated RBC % 0 Sodium 144 Potassium 4.7 Chloride 104 Carbon Dioxide 42.0 H Anion Gap -2 L BUN 22 H Creatinine 0.81 Estim Creat Clear Calc 60.74 Est GFR (MDRD) Af Amer 90 Est GFR (MDRD) Non-Af 75 BUN/Creatinine Ratio 27.2 H Glucose 155 H Calcium 8.6 Troponin I High Sens 12 Urine Color Yellow Urine Clarity Clear Urine pH 6.5 Ur Specific Swan 1.015 Urine Protein 15 H Urine Glucose (UA) Normal Urine Ketones 5 H Urine Occult Blood 25 H Urine Nitrite Negative Urine Bilirubin Negative Urine Urobilinogen Normal Ur Leukocyte Esterase 100 H Radiography Diagnostic Testing: Clinical Impression(s) from Imaging Studies Brain CT 08/05/23 18:06 IMPRESSION: Minimal subdural hematoma localized to the anterior falx cerebri. No other changes. Previous infarcts. Electronically Signed: Deejay Weinberg MD at 18:48 EST , Chest X-Ray 08/05/23 18:36 IMPRESSION: Normal x-ray examination of the chest. Electronically Signed: Deejay Weinberg MD at 18:52 EST , Rhythm Strip Rhythm Strip: Sinus Rhythm Rate: 105 Ectopy: None EKG Initial EKG: Attestation: I personally reviewed and interpreted this EKG as follows: Interpretation: Sinus Rhythm and No Acute Injury Pattern Management Discussion w/another healthcare provider: [employer]ar[employer] Supervisor and Radiologist Procedures Lacerations occipital scalp: Length: 3 cm Depth: Sub Q Shape: Linear Prep: Sterile Conditions and Chlorhexadine Laceration repair: Irrigated, Lidocaine with epi (3cc 2%), Local, Skin sutures (arturo) and Wound explored Number of Sutures/[place]: 4 (arturo) Comment: isabel well Critical Care Time Critical Care Time: Yes Critical care time (excluding procedures): 30-74 minutes (33 min, exclusive of procedure time), Including time spent:, Discussing w/Patient &/or Family/Eyewear Manufacturing Supervisor, Discussing w/Consultants, Arranging Admission or Transfer and Performing Direct Patient Care at Bedside Discharge Plan Triage Chief Complaint: Fall ED Provider: Yunior Alanis Dx/Rx/DC Orders Clinical Impression: Traumatic intracranial subdural hematoma, Acute encephalopathy, Laceration of scalp Prescriptions: No Action atorvastatin 40 mg tablet 40 mg PO QHS MDD 40 metoprolol succinate 25 mg tablet extended release 24 hr 25 mg PO DAILY MDD 25 aripiprazole [Abilify] 2 mg tablet 2 mg PO DAILY MDD 2mg albuterol sulfate 90 mcg/actuation HFA aerosol inhaler 2 inh inhalation Q4H Qty: 8.5 11RF albuterol sulfate 2.5 mg /3 mL (0.083 %) solution for nebulization 2.5 mg inhalation Q2H PRN PRN (Reason: Dyspnea, wheezing) Qty: 180 6RF Trelegy Ellipta 100-62.5-25 mcg blister with device 1 inh INHALATION DAILY 30 Days Qty: 60 6RF ipratropium-albuterol 0.5 mg-3 mg(2.5 mg base)/3 mL solution for nebulization 3 ml inhalation Q6HWA.RT Qty: 180 6RF nystatin 100,000 unit/mL suspension 5 ml mucous membrane TID Qty: 250 1RF Rx Instructions: swish and swallow 5 cc three times per day for 10 days pantoprazole [Protonix] 40 mg Tablet,Delayed Release (Dr/Ec) 40 mg PO DAILY aspirin 81 mg Tablet 81 mg PO DAILY cholecalciferol (vitamin D3) [Vitamin D3] 25 mcg (1,000 unit) Tablet 25 mcg PO DAILY potassium chloride 20 mEq/15 mL Liquid 40 meq G-tube BID Qty: 0 0RF zolpidem [Ambien] 5 mg tablet 5 mg PO QHS PRN (Reason: insomnia) 30 Days Qty: 30 0RF Hold Instructions: Resume on 11/18/22. Please hold discussing with your prescribing physician given your episode of confusion phenytoin 100 mg/4 mL Suspension 100 mg PO Q8 30 Days Qty: 360 2RF furosemide 20 mg tablet 20 mg BIDCM MDD 40 duloxetine 30 mg capsule,delayed release(DR/EC) 2 mg PO DAILY MDD 60 mirtazapine 7.5 mg tablet 7.5 mg PO QHS Qty: 30 0RF Primary Care Provider: Maryam Pineda Referrals: Maryam Pineda MD [Primary Care Provider] - Disposition Disposition: Acute Care Hospital Discharge Location: [facility]
[2023-08-05 18:28] LABS: Absolute Lymphocyte Count 0.87 X10^3/uL (0.83-4.51); Absolute Neutrophil Count 4.2 X10^3/uL (2.0-7.7); Basophil# 0.04 X10^3/uL; Basophil% 0.7 % (0-1); Eosinophil# 0.27 X10^3/uL; Eosinophils% 4.6 % (0-5); Hematocrit 35.2 % (37-47); Hemoglobin 10.2 g/dL (12.0-15.0); Lymphocyte # 0.87 X10^3/ul (0.83-4.51); Lymphocyte % 14.9 % (19-41); Mean Corpuscular Hgb 27.9 pg (27.0-32.0); Mean Corpuscular Volume 96.2 fL (81-99); Mean Platelet Vol. 10.4 fl (6.2-12.0); Monocyte# 0.41 X10^3/uL; NRBC Flagged by Analyzer 0 % (0-5); Neutrophil % 71.8 % (47-70); Platelet Count 129 K/mm3 (150-450); RBC Distribution Width CV 13.2 % (11.6-14.6); RBC Distribution Width SD 47.4 fl (35.1-43.9); Red Blood Count 3.66 M/mm3 (4.2-5.4); White Blood Count 5.9 K/mm3 (4.4-11.0)
--- NOTE | 2023-08-05 18:36 | RAD_ITS ---
STUDY: X-RAY CHEST REASON FOR EXAM: Female, 67 years old. confusion TECHNIQUE: Frontal and lateral views of the chest. COMPARISON: 11/09/2022. FINDINGS: The lungs are clear and expanded. There is no demonstrated pleural abnormality. Normal size heart. Normal mediastinum and jacinto. Normal visualized pulmonary arteries. Normal visualized aortic arch and descending thoracic aorta. Normal visualized thoracic spine. Normal visualized ribs, clavicles, and shoulders. There is no demonstrated abnormality of the visualized soft tissue structures of the upper abdomen. RAD/Chest PA and Lateral IMPRESSION: Normal x-ray examination of the chest. Electronically Signed: Deejay Weinberg MD at 18:52 EST ,
[2023-08-05 18:56] LABS: Anion Gap -2 (5-15); BUN 22 mg/dL (7-18); BUN/Creat Ratio 27.2 RATIO (10-20); Calcium,Total 8.6 mg/dL (8.5-10.1); Chloride 104 mmol/L (98-107); Creatinine, Serum 0.81 mg/dL (0.55-1.02); EST Glomerular Filtration Rate 75 mL/min (>60); Est Glom Filt Rate - Afr Amer 90 mL/min (>60); Estimated Creatinine Clearance 60.74 ml/min; Glucose 155 mg/dL (74-106); Potassium 4.7 mmol/L (3.5-5.1); Sodium Level 144 mmol/L (136-145); Troponin-I HS 12 pg/mL (3.0-54.0)
[2023-08-05 19:22] LABS: Bacteria 0 SEEN /hpf (None Seen); Mucous, Urine 0 SEEN /hpf (<or=2+); Squamous Epithelial Cells - UA 0 SEEN /hpf (5-10)
[2023-08-05] MEDS: Lidocaine 2% /Epi 1:100 (50ml) 50 ML Vial INFILT (19:27)
[2023-08-05 19:33] LABS: Color, Urine Yellow (Yellow); Glucose, Dipstick Normal (Normal); Ketone-Dipstick 5 mg/dl (Negative); Leukocyte Esterase-Dipstick 100 /ul (Negative); Nitrite-Dipstick Negative (Negative); Occult Blood-Urine 25 /ul (Negative); Protein-Dipstick 15 mg/dl (Negative); Specific Gravity, Urine 1.015 (1.002-1.030); Urine Bilirubin Dipstick Negative (Negative); Urine Clarity Clear (Clear); Urine Urobilinogen Normal (Normal); Urine pH 6.5 (5.0 - 8.0)
[2023-08-05 19:41] LABS: Red Blood Cells-Urine 0-5 SEEN /hpf (0-5); White Blood Cells 0-5 SEEN /hpf (0-5)
[2023-08-05 20:12] VITALS: BP 115/64; PULSE 94; RESP 20; O2SAT 99
--- NOTE | 2023-08-05 20:14 | ED.RN ---
Report given to Catalino KILPATRICK @ [facility].
== END 2023-08-05 20:31 | disposition short-term general hospital (02) ==
PROVIDERS: Emergency Provider Emergency Medicine; PCP Internal Medicine; Visit Provider Emergency Medicine
DX: S06.5X0A Traumatic subdural hemorrhage without loss of consciousness, initial encounter (principal); Z93.0 Tracheostomy status; Z93.1 Gastrostomy status; J44.9 Chronic obstructive pulmonary disease, unspecified; I11.0 Hypertensive heart disease with heart failure; I50.9 Heart failure, unspecified; Z87.891 Personal history of nicotine dependence; S01.01XA Laceration without foreign body of scalp, initial encounter; Z86.73 Personal history of transient ischemic attack (TIA), and cerebral infarction without residual deficits; G93.40 Encephalopathy, unspecified; W01.190A Fall on same level from slipping, tripping and stumbling with subsequent striking against furniture, initial encounter; I25.2 Old myocardial infarction; E78.5 Hyperlipidemia, unspecified; Z79.899 Other long term (current) drug therapy; Z79.82 Long term (current) use of aspirin; K21.9 Gastro-esophageal reflux disease without esophagitis; G47.00 Insomnia, unspecified; F41.8 Other specified anxiety disorders; Z79.51 Long term (current) use of inhaled steroids; Z98.41 Cataract extraction status, right eye; Z98.42 Cataract extraction status, left eye; Z90.49 Acquired absence of other specified parts of digestive tract; Z99.81 Dependence on supplemental oxygen
CPT/HCPCS: 12002; 70450; 71046; 80048; 81001; 84484; 85025; 87631; 93005; 99285; P9612; A4216

== ENCOUNTER 2023-09-26 00:19 | Inpatient (IN) | payer MEDICARE, SELFPAY ==
[2023-09-26] VITALS (36 sets, daily range): BP systolic 57–230; BP diastolic 32–197; PULSE 66–110; RESP 10–37; TEMP 35.2–37.5; O2SAT 90–100; BMI 24.5; BMI 24.1; BMI 25.8
--- NOTE | 2023-09-26 00:36 | CT_ITS ---
INDICATION: seizure EXAMINATION: CT BRAIN - CT Head or Brain W/O Contrast Injection TECHNIQUE: Multiple axial images were obtained of the head with sagittal and coronal reconstructed images. Individualized dose optimization techniques were used for this CT. IV contrast dosage and agent: None. COMPARISON: 08/05/2023 CT. FINDINGS: BRAIN PARENCHYMA: No evidence of an acute infarct or intracranial hemorrhage. No evidence of a mass. Stable chronic encephalomalacia in the left parietal lobe and right parieto-occipital lobe. CSF SPACES: The ventricles, sulci and subarachnoid cisterns are appropriate for age. CALVARIUM, SKULL BASE, PARANASAL SINUSES AND MASTOID AIR CELLS: No fracture. Mastoid air cells are clear. Visualized paranasal sinuses are unremarkable. Stable right-sided postsurgical changes. ORBITS: The globes, extraocular muscles, optic nerves and retrobulbar fat are unremarkable. CT/Brain/Head without Contrast IMPRESSION: No acute intracranial abnormality. Electronically Signed: Pablo Berry DO at 2:03 EDT ,
--- NOTE | 2023-09-26 00:37 | EKG12_ITS ---
Test Reason : SYNCOPE Blood Pressure : / mmHG Vent. Rate : 092 BPM Atrial Rate : 092 BPM P-R Int : 134 ms QRS Dur : 086 ms QT Int : 338 ms P-R-T Axes : 058 054 053 degrees QTc Int : 417 ms Normal sinus rhythm Possible Lateral infarct , age undetermined Possible Inferior infarct (cited on or before 09-NOV-2022) Abnormal ECG BASELINE ARTIFACT Confirmed by Leobardo Yan ([id number]), newspaper editor JUDY BE ([id number]) on 09/28/2023 9:07:27 AM Referred By: PRAMOD Confirmed By:Leobardo Yan
--- NOTE | 2023-09-26 00:38 | EDS_ITS ---
HPI History of Present Illness Chief Complaint: Syncope Detail of Chief Complaint: Syncope versus seizure Informant: spouse/S.O., family and EMS Narrative Narrative: Patient brought in via EMS secondary to unresponsive episode. Reportedly patient states that she needed to get to the bathroom. was helping her. Just before they got to the bathroom her legs gave out on her and she fell to the floor. He states she was shaking rhythmically like seizure activity. She does have a history of seizures, last seizure roughly 15 months ago. She is on phenytoin for her seizures. He states that she had been doing well yesterday. [facility] Medical History Anxiety and depression Aspiration pneumonia due to gastric secretions Benign neoplasm of colon Carcinoma in situ of breast Chronic anemia COPD (chronic obstructive pulmonary disease) Daytime hypersomnia Diastolic CHF Essential (primary) hypertension GERD (gastroesophageal reflux disease) Hemorrhagic cerebrovascular accident (CVA) (02/09/17) History of alcohol abuse History of DVT of lower extremity (02/11/17) History of non-ST elevation myocardial infarction (NSTEMI) (02/03/17) Hyperlipidemia Insomnia Ischemic cerebrovascular accident (CVA) (02/06/17) Non-ischemic cardiomyopathy Non-rheumatic mitral regurgitation Noncompliance TIO (obstructive sleep apnea) Secondary pulmonary arterial hypertension Takotsubo cardiomyopathy (06/17/21) Home Medications aspirin 81 mg tablet 81 mg PO DAILY heart health 11/03/20 [History Last Taken Unknown] cholecalciferol (vitamin D3) 25 mcg (1,000 unit) tablet (Vitamin D3) 25 mcg PO DAILY supplement 11/03/20 [History Last Taken Unknown] pantoprazole 40 mg tablet,delayed release (Protonix) 40 mg PO DAILY GERD 11/03/20 [History Last Taken Unknown] potassium chloride 20 mEq/15 mL oral liquid 40 meq (30 mL) G-tube BID #0 mL 07/25/22 [Rx Last Taken Unknown] zolpidem 5 mg tablet (Ambien) 5 mg PO QHS PRN insomnia 30 days #30 tabs 07/25/22 [Rx Last Taken Unknown] aripiprazole 2 mg tablet (Abilify) 2 mg PO DAILY mental health 08/25/22 [History Last Taken Unknown] atorvastatin 40 mg tablet 40 mg PO QHS cholesterol 08/25/22 [History Last Taken Unknown] metoprolol succinate 25 mg tablet,extended release 24 hr 25 mg PO DAILY blood pressure 08/25/22 [History Last Taken Unknown] phenytoin 100 mg/4 mL oral suspension 100 mg (4 mL) PO Q8 30 days #360 mL 10/12/22 [Rx Last Taken Unknown] duloxetine 30 mg capsule,delayed release 2 mg PO DAILY mental health 11/11/22 [History Last Taken Unknown] furosemide 20 mg tablet 20 mg BIDCM diuretic 11/11/22 [History Last Taken Unknown] mirtazapine 7.5 mg tablet 7.5 mg PO QHS #30 tabs 11/11/22 [Rx Last Taken Unknown] albuterol sulfate 2.5 mg/3 mL (0.083 %) solution for nebulization 2.5 mg (3 mL) inhalation Q2H PRN PRN Dyspnea, wheezing #180 mL 06/30/23 [Rx Last Taken Unknown] albuterol sulfate 90 mcg/actuation aerosol inhaler 2 inh inhalation Q4H #8.5 grams 06/30/23 [Rx Last Taken Unknown] fluticasone fur. 100 mcg-umeclid 62.5 mcg-vilant 25 mcg inhalat.powder (Trelegy Ellipta) 1 inh inhalation DAILY 30 days #60 ea 06/30/23 [Rx Last Taken Unknown] ipratropium 0.5 mg-albuterol 3 mg (2.5 mg base)/3 mL nebulization soln 3 ml inhalation Q6HWA.RT #180 mL 06/30/23 [Rx Last Taken Unknown] nystatin 100,000 unit/mL oral suspension 5 ml mucous membrane TID #250 mL 06/30/23 [Rx Last Taken Unknown] Allergy/AdvReac Type Severity Reaction Status Date / Time tetanus and diphtheria Allergy Hives Verified 08/05/23 17:37 toxoids [tetanus & diphtheria toxoids] Family History Sister Cancer lung Father Cancer lung Mother Cancer lung Surgical History H/O: section History of bilateral cataract extraction History of cholecystectomy History of left heart catheterization (06/17/21) History of lumpectomy History of tracheostomy Hx of appendectomy S/P percutaneous endoscopic gastrostomy (PEG) tube placement Social History household members: none Smoking Status: Former smoker how long ago did patient quit smokin, 1pk/day second hand exposure: Yes alcohol intake: former substance use type: does not use what type of physical activity do you participate in: walking frequency: daily ROS ROS ED Review of Systems ROS Unobtainable: due to mental condition EXAM Physical Exam Const Vital Signs: 09/26/23 00:21 09/26/23 00:20 09/26/23 01:13 Temperature 97.8 F Temperature Source Temporal Pulse Rate 110 H 96 Respiratory Rate 37 H 20 H Respiratory Effort Normal Non-Labored Respiratory Pattern Normal Blood Pressure 115/56 L 97/32 L Blood Pressure Mean 75 53 Pulse Ox 97 100 Oxygen Delivery Method Nasal Cannula Nasal Cannula Oxygen Flow Rate (L/min) 4 4 09/26/23 01:20 09/26/23 02:00 09/26/23 02:47 Temperature 97.8 F Temperature Source Pulse Rate 93 92 86 Respiratory Rate 18 18 17 Respiratory Effort Respiratory Pattern Blood Pressure 94/49 L 99/32 L 90/43 L Blood Pressure Mean 64 54 58 Pulse Ox 100 100 100 Oxygen Delivery Method Nasal Cannula Nasal Cannula Oxygen Flow Rate (L/min) 4 4 Positive well nourished and well developed General Appearance ED: well developed HEENT Reports moist mucous membranes Eyes Eyes Narrative: Pupils 2 mm and equal. No intraoral blood noted. Chest Wall inspection of chest normal and palpation of chest normal Resp normal respiratory effort and clear to auscultation bilaterally Cardio regular rate and regular rhythm GI non-tender Palpation: soft Extremity Extremity Narrative: Skin abrasion to the left forearm. Bleeding controlled at this time. Neuro Neuro Narrative: Patient postictal at this time. Lower extremities withdraw to pain with upgoing Babinski. Skin Skin Narrative: Skin tear as noted above. MDM MDM MDM Narrative Medical decision making narrative: IV line established. Labwork obtained to evaluate for leukocytosis, anemia, and electrolyte derangement. EKG obtained to evaluate for cardiac arrhythmia/ischemia. CT scan of the head obtained to evaluate for bleed, mass, edema. History & Record Review Discussion w/independent historian: EMS personnel and Family Lab Data Attestation: I reviewed the patient's lab results. Labs: Laboratory Results - last 24 hr 09/26/23 09/26/23 09/26/23 00:30 00:45 00:55 WBC 5.4 RBC 3.68 L Hgb 10.7 L Hct 37.6 MCV 102.2 H MCH 29.1 MCHC 28.5 L RDW Std Deviation 49.0 H RDW Coeff of Deonte 13.0 Plt Count 157 MPV 10.4 Immature Gran % (Auto) 0.700 Neut % (Auto) 53.1 Lymph % (Auto) 30.8 [place] % (Auto) 10.9 H Eos % (Auto) 4.1 Baso % (Auto) 0.4 Absolute Neuts (auto) 2.9 Absolute Lymphs (auto) 1.67 Nucleated RBC % 0 Sodium 144 Potassium 4.5 Chloride 100 Carbon Dioxide 45.0 H Anion Gap -1 L BUN 12 Creatinine 0.71 Estim Creat Clear Calc 58.12 Est GFR (MDRD) Af Amer 105 Est GFR (MDRD) Non-Af 87 BUN/Creatinine Ratio 16.9 Glucose 126 H Calcium 8.9 Total Bilirubin 0.20 Direct Bilirubin 0.08 AST 13 L ALT 12 L Alkaline Phosphatase 83 Total Protein 7.0 Albumin 3.4 Globulin 3.6 Urine Color Yellow Urine Clarity Clear Urine pH 6.0 Ur Specific [place] 1.020 Urine Protein 100 H Urine Glucose (UA) Normal Urine Ketones 5 H Urine Occult Blood 50 H Urine Nitrite Negative Urine Bilirubin Negative Urine Urobilinogen Normal Ur Leukocyte Esterase 25 H Urine RBC 0-5 SEEN Urine WBC 5-10 SEEN Ur Squamous Epith Cells 0 SEEN Urine Bacteria 1+ Hyaline Casts 0-5 SEEN Urine Mucus 0 SEEN Phenytoin 4.6 L ABG Data ABG results: ABG 09/26/23 02:32 Specimen Type ART Sample Site L Radial pH 7.14 L* Bicarbonate Actual 46.6 H Total CO2 > 50 Base Excess 18 H O2 Saturation 98 O2 % 4.0 ABG pCO2 137.0 H* ABG pO2 142 H Royal Test N/A O2 Delivery Device Cannula Vent Mode Not entered Crit Call To/Read Back Yes Blood Gas Notified Whom Dr Figueroa Blood Gas Notified Time 02:34:20 Radiography Chest X-Ray - ED: 1 View, Read by ED Physician, Chronic Changes and No Infiltrates Diagnostic Testing: Clinical Impression(s) from Imaging Studies Brain CT 09/26/23 00:36 IMPRESSION: No acute intracranial abnormality. Electronically Signed: Pablo Berry DO at 2:03 EDT , Chest X-Ray 09/26/23 01:14 IMPRESSION: No evidence of acute cardiopulmonary disease. Electronically Signed: Pablo Berry DO at 2:06 EDT , EKG Initial EKG: Attestation: I personally reviewed and interpreted this EKG as follows: Interpretation: Sinus Rhythm (Sinus at 92 with no acute ischemia.) Treatment and Re-Evaluation :: CBC was normal white count 5.4 with a hemoglobin of 10.7. Differential unremarkable. Chemistry studies unremarkable with normal LFTs. Urinalysis reveals 1+ bacteria with 5-10 white cells. No nitrites. Phenytoin level is low at 4.6. She will be given IV phenytoin. CT scan of the head reveals no acute abnormality. Chest x-ray shows no acute findings per my interpretation. Radiology interpretation reviewed and agrees. EKG is sinus with no acute ischemia. On repeat evaluation patient still sleeping deeply. Family states that she would only say 1 or 2 words to them early in the visit but now is not answering them. She does, of note, take Ambien to help her sleep at night as well. Daughter does raise concern that she tends to be noncompliant with her BiPAP mask at night and will often act like this when she is retaining CO2. ABG is obtained. Her pH is 7.139 with a pCO2 of 137 and a pO2 of 141. She is placed on BiPAP at this time. Will speak with hospitalist regarding admission. Discharge Plan Triage Chief Complaint: Syncope ED Provider: Jackie Figueroa Dx/Rx/DC Orders Clinical Impression: CO2 retention, Seizure, Altered mental status Prescriptions: No Action atorvastatin 40 mg tablet 40 mg PO QHS MDD 40 metoprolol succinate 25 mg tablet extended release 24 hr 25 mg PO DAILY MDD 25 aripiprazole [Abilify] 2 mg tablet 2 mg PO DAILY MDD 2mg albuterol sulfate 90 mcg/actuation HFA aerosol inhaler 2 inh inhalation Q4H Qty: 8.5 11RF albuterol sulfate 2.5 mg /3 mL (0.083 %) solution for nebulization 2.5 mg inhalation Q2H PRN PRN (Reason: Dyspnea, wheezing) Qty: 180 6RF Trelegy Ellipta 100-62.5-25 mcg blister with device 1 inh INHALATION DAILY 30 Days Qty: 60 6RF ipratropium-albuterol 0.5 mg-3 mg(2.5 mg base)/3 mL solution for nebulization 3 ml inhalation Q6HWA.RT Qty: 180 6RF nystatin 100,000 unit/mL suspension 5 ml mucous membrane TID Qty: 250 1RF Rx Instructions: swish and swallow 5 cc three times per day for 10 days pantoprazole [Protonix] 40 mg Tablet,Delayed Release (Dr/Ec) 40 mg PO DAILY aspirin 81 mg Tablet 81 mg PO DAILY cholecalciferol (vitamin D3) [Vitamin D3] 25 mcg (1,000 unit) Tablet 25 mcg PO DAILY potassium chloride 20 mEq/15 mL Liquid 40 meq G-tube BID Qty: 0 0RF zolpidem [Ambien] 5 mg tablet 5 mg PO QHS PRN (Reason: insomnia) 30 Days Qty: 30 0RF Hold Instructions: Resume on 11/18/22. Please hold discussing with your prescribing physician given your episode of confusion phenytoin 100 mg/4 mL Suspension 100 mg PO Q8 30 Days Qty: 360 2RF furosemide 20 mg tablet 20 mg BIDCM MDD 40 duloxetine 30 mg capsule,delayed release(DR/EC) 2 mg PO DAILY MDD 60 mirtazapine 7.5 mg tablet 7.5 mg PO QHS Qty: 30 0RF Primary Care Provider: Maryam Pineda Referrals: Maryam Pineda MD [Primary Care Provider] - Disposition Disposition: Acute Care Hospital [facility]
[2023-09-26] MEDS: 0.9% Normal Saline (1000mL) 1,000 ML 150 ML IV (00:46)
[2023-09-26 01:00] LABS: Mucous, Urine 0 SEEN /hpf (<or=2+); Squamous Epithelial Cells - UA 0 SEEN /hpf (5-10)
[2023-09-26 01:00] LABS: Absolute Lymphocyte Count 1.67 X10^3/uL (0.83-4.51); Absolute Neutrophil Count 2.9 X10^3/uL (2.0-7.7); Basophil# 0.02 X10^3/uL; Basophil% 0.4 % (0-1); Eosinophil# 0.22 X10^3/uL; Eosinophils% 4.1 % (0-5); Hematocrit 37.6 % (37-47); Hemoglobin 10.7 g/dL (12.0-15.0); Lymphocyte # 1.67 X10^3/ul (0.83-4.51); Lymphocyte % 30.8 % (19-41); Mean Corp Hgb Conc 28.5 g/dL (32-36); Mean Corpuscular Hgb 29.1 pg (27.0-32.0); Mean Corpuscular Volume 102.2 fL (81-99); Mean Platelet Vol. 10.4 fl (6.2-12.0); Monocyte# 0.59 X10^3/uL; Monocyte% 10.9 % (0-10); NRBC Flagged by Analyzer 0 % (0-5); Neutrophil # 2.88 X10^3/uL (2.7-7.7); Neutrophil % 53.1 % (47-70); Platelet Count 157 K/mm3 (150-450); Red Blood Count 3.68 M/mm3 (4.2-5.4); White Blood Count 5.4 K/mm3 (4.4-11.0)
[2023-09-26 01:09] LABS: Color, Urine Yellow (Yellow); Glucose, Dipstick Normal (Normal); Ketone-Dipstick 5 mg/dl (Negative); Leukocyte Esterase-Dipstick 25 /ul (Negative); Nitrite-Dipstick Negative (Negative); Occult Blood-Urine 50 /ul (Negative); Protein-Dipstick 100 mg/dl (Negative); Urine Bilirubin Dipstick Negative (Negative); Urine Clarity Clear (Clear); Urine Urobilinogen Normal (Normal)
--- NOTE | 2023-09-26 01:14 | RAD_ITS ---
INDICATION: sob EXAMINATION/TECHNIQUE: X-RAY - XR Chest 1 View COMPARISON: 11/04/2018. FINDINGS: LINES/DEVICES: None. LUNGS: No consolidation or evidence of an effusion. No evidence of edema or a pneumothorax. Hyperinflation of the lungs which may represent COPD. MEDIASTINUM AND CARDIOVASCULAR STRUCTURES: Cardiac silhouette is normal in size and contour. Mediastinum is unremarkable. BONES AND SOFT TISSUES: No acute abnormality. RAD/Chest 1 View (Portable) IMPRESSION: No evidence of acute cardiopulmonary disease. Electronically Signed: Pablo Berry DO at 2:06 EDT ,
[2023-09-26 01:23] LABS: Bacteria 1+ /hpf (None Seen); Hyaline Cast 0-5 SEEN /lpf (0-5); Red Blood Cells-Urine 0-5 SEEN /hpf (0-5); White Blood Cells 5-10 SEEN /hpf (0-5)
[2023-09-26 01:27] LABS: AST(SGOT) 13 U/L (15-37); Alanine Aminotransfer ALT/SGPT 12 U/L (13-56); Albumin, Serum 3.4 g/dL (3.2-5.0); Alkaline Phosphatase 83 U/L (45-117); Anion Gap -1 (5-15); BUN 12 mg/dL (7-18); BUN/Creat Ratio 16.9 RATIO (10-20); Bilirubin, Direct 0.08 mg/dL (0.00-0.30); Calcium,Total 8.9 mg/dL (8.5-10.1); Chloride 100 mmol/L (98-107); Creatinine, Serum 0.71 mg/dL (0.55-1.02); EST Glomerular Filtration Rate 87 mL/min (>60); Est Glom Filt Rate - Afr Amer 105 mL/min (>60); Estimated Creatinine Clearance 58.12 ml/min; Globulin 3.6 g/dL (2.2-4.2); Glucose 126 mg/dL (74-106); Potassium 4.5 mmol/L (3.5-5.1); Sodium Level 144 mmol/L (136-145)
[2023-09-26 01:35] LABS: Phenytoin (Dilantin) Level 4.6 mL (10.0-20.0)
[2023-09-26 02:37] LABS: Base Excess 18 mmol/L (-2 to +2); Bicarbonate 46.6 mmol/L (22-26); Blood Gas Specimen Type ART; Mode Not entered; O2 Delivery Device Cannula; PO2 142 mmHG (75-100); SITE L Radial; SO2 98 % (95-99); Total Carbon Dioxide > 50 mmol/L; pH 7.14 (7.35-7.45)
[2023-09-26] MEDS: 0.9% Normal Saline (1000mL) 1,000 ML 999 ML IV (02:54)
--- NOTE | 2023-09-26 03:13 | HP.PCM.HOS_ITS ---
HPI - General General Date of Admission: 09/26/23 Date of Service: 09/26/23 Chief Complaint: Possible breakthrough seizure, encephalopathy. HPI Narrative The patient is a 67 y/o F w/ PMHx: Seizure disorder, COPD w/ Chronic Hypoxic Respiratory Failure (2L NC) s/p tracheostomy (07/10/22), HFpEF w/ Hx Takotsubo cardiomyopathy, Hx CVA w/ Chronic dysphagia with aspiration history on altered diet w/ prior PEG tube (07/09/22) w/ also known 01/2022 Hemorrhagic CVA with transition to [facility] with surgical intervention, Seizure disorder, GERD, Chronic no rmocytic anemia, Hx VTE, HTN, HLD, TIO, Chronic Depression and Anxiety, History of Breast CA, Former EtOH Abuse who presents to the [facility] ED on 09/26/23 w/ history of unresponsive episode with possible syncope versus seizure with patient reportedly needing to use the restroom and her was helping her however before she got to the bathroom her legs gave out and she fell to the floor and was reportedly rhythmically shaking like seizure like activity with history of seizures supposedly doing well with no seizures since 15 months prior prompting ED evaluation. Workup in the ED included T97.8, heart rate 110, BP 115/56, respiratory rate 37, 97% on 4 L nasal cannula, CBC with WBC 5.4, hemoglobin 10.7, MCV 102.2, platelet 157 without marked shift, CMP with carbon oxide 45, glucose 126 otherwise unremarkable, urinalysis with specific remedy 1.020, protein 100, ketone 5, occult blood 50, negative nitrite, leukocyte Estrace 25 with urine WBCs 5-10 with 1+ urine bacteria but not severe appearing urine of note, phenytoin level subtherapeutic at 4.6, chest x-ray with no acute cardiopulmonary findings, CT brain with no acute intracranial finding, EKG with sinus rhythm with no acute evidence of ischemia, ABG with pH 7.14, bicarb 46.6, pCO2 137, pO2 142. In the ED patient ministered maintenance IV fluids as well as a Dilantin 970 mg IV x 1 load and maintenance IV fluid. Patient placed on BiPAP given ABG findings. [facility] Medical History Anxiety and depression Aspiration pneumonia due to gastric secretions Benign neoplasm of colon Carcinoma in situ of breast Chronic anemia COPD (chronic obstructive pulmonary disease) Daytime hypersomnia Diastolic CHF Essential (primary) hypertension GERD (gastroesophageal reflux disease) Hemorrhagic cerebrovascular accident (CVA) (02/09/17) History of alcohol abuse History of DVT of lower extremity (02/11/17) History of non-ST elevation myocardial infarction (NSTEMI) (02/03/17) Hyperlipidemia Insomnia Ischemic cerebrovascular accident (CVA) (02/06/17) Non-ischemic cardiomyopathy Non-rheumatic mitral regurgitation Noncompliance TIO (obstructive sleep apnea) Secondary pulmonary arterial hypertension Takotsubo cardiomyopathy (06/17/21) Home Medications aspirin 81 mg tablet 81 mg PO DAILY heart health 11/03/20 [History Last Taken Unknown] cholecalciferol (vitamin D3) 25 mcg (1,000 unit) tablet (Vitamin D3) 25 mcg PO DAILY supplement 11/03/20 [History Last Taken Unknown] pantoprazole 40 mg tablet,delayed release (Protonix) 40 mg PO DAILY GERD 11/03/20 [History Last Taken Unknown] potassium chloride 20 mEq/15 mL oral liquid 40 meq (30 mL) G-tube BID #0 mL 07/25/22 [Rx Last Taken Unknown] zolpidem 5 mg tablet (Ambien) 5 mg PO QHS PRN insomnia 30 days #30 tabs 07/25/22 [Rx Last Taken Unknown] aripiprazole 2 mg tablet (Abilify) 2 mg PO DAILY mental health 08/25/22 [History Last Taken Unknown] atorvastatin 40 mg tablet 40 mg PO QHS cholesterol 08/25/22 [History Last Taken Unknown] metoprolol succinate 25 mg tablet,extended release 24 hr 25 mg PO DAILY blood pressure 08/25/22 [History Last Taken Unknown] phenytoin 100 mg/4 mL oral suspension 100 mg (4 mL) PO Q8 30 days #360 mL 10/12/22 [Rx Last Taken Unknown] duloxetine 30 mg capsule,delayed release 2 mg PO DAILY mental health 11/11/22 [History Last Taken Unknown] furosemide 20 mg tablet 20 mg BIDCM diuretic 11/11/22 [History Last Taken Unknown] mirtazapine 7.5 mg tablet 7.5 mg PO QHS #30 tabs 11/11/22 [Rx Last Taken Unknown] albuterol sulfate 2.5 mg/3 mL (0.083 %) solution for nebulization 2.5 mg (3 mL) inhalation Q2H PRN PRN Dyspnea, wheezing #180 mL 06/30/23 [Rx Last Taken Unknown] albuterol sulfate 90 mcg/actuation aerosol inhaler 2 inh inhalation Q4H #8.5 grams 06/30/23 [Rx Last Taken Unknown] fluticasone fur. 100 mcg-umeclid 62.5 mcg-vilant 25 mcg inhalat.powder (Trelegy Ellipta) 1 inh inhalation DAILY 30 days #60 ea 06/30/23 [Rx Last Taken Unknown] ipratropium 0.5 mg-albuterol 3 mg (2.5 mg base)/3 mL nebulization soln 3 ml inhalation Q6HWA.RT #180 mL 06/30/23 [Rx Last Taken Unknown] nystatin 100,000 unit/mL oral suspension 5 ml mucous membrane TID #250 mL 06/30/23 [Rx Last Taken Unknown] Allergy/AdvReac Type Severity Reaction Status Date / Time tetanus and diphtheria Allergy Hives Verified 08/05/23 17:37 toxoids [tetanus & diphtheria toxoids] Family History Sister Cancer lung Father Cancer lung Mother Cancer lung Surgical History H/O: section History of bilateral cataract extraction History of cholecystectomy History of left heart catheterization (06/17/21) History of lumpectomy History of tracheostomy Hx of appendectomy S/P percutaneous endoscopic gastrostomy (PEG) tube placement Social History (Updated 09/26/23 @ 03:[address] Yazmin Buitrago MD) household members: spouse Smoking Status: Former smoker how long ago did patient quit smokin, 1pk/day second hand exposure: Yes alcohol intake: former substance use type: does not use what type of physical activity do you participate in: walking frequency: daily ROS Review of Systems ROS Unobtainable: due to encephalopathy Vital Signs Vital Signs Vital Signs: 09/26/23 00:21 09/26/23 00:20 09/26/23 01:13 Temperature 97.8 F Temperature Source Temporal Pulse Rate 110 H 96 Respiratory Rate 37 H 20 H Respiratory Effort Normal Non-Labored Respiratory Pattern Normal Blood Pressure 115/56 L 97/32 L Blood Pressure Mean 75 53 Pulse Ox 97 100 Oxygen Delivery Method Nasal Cannula Nasal Cannula Oxygen Flow Rate (L/min) 4 4 09/26/23 01:20 09/26/23 02:00 09/26/23 02:47 Temperature 97.8 F Temperature Source Pulse Rate 93 92 86 Respiratory Rate 18 18 17 Respiratory Effort Respiratory Pattern Blood Pressure 94/49 L 99/32 L 90/43 L Blood Pressure Mean 64 54 58 Pulse Ox 100 100 100 Oxygen Delivery Method Nasal Cannula Nasal Cannula Oxygen Flow Rate (L/min) 4 4 Weight Weight: 142 lb 13.753 oz Body Mass Index (BMI) 24.5 Physical Exam Narrative Physical Examination: General: Patient significantly lethargic, very minimally awakens to stimuli, not alert, not oriented, on BiPAP. Skin: Normal color, normal turgor, no icterus, no cyanosis except occasional staged ecchymoses, abrasion especially with recent fall. HEENT: AT/NC, EOM unable to be assessed well given encephalopathy, pupils equal/bilaterally round, reactive, BIPAP in place, no carotid bruits however referred sounds from BIPAP make evaluation difficult, no marked JVD noted. Lungs: Diminished, greater bases, mildly increased respiratory rate but no distress, BiPAP in place, no rales, ronchi or wheezing. Heart: Currently regular rate with regular rhythm; no gallop, rub audible. Abdomen: Soft, NTTP, ND, hyperactive BS, no appreciated HSM. Extremities: No cyanosis, no clubbing, bilateral distal mild pitting edema. Neurological: Patient significantly lethargic, very minimally awakens to stimuli, not alert, not oriented, on BiPAP, cognitive function not baseline intact, cranial nerves unable to be assessed given current status, known history of CVA with chronic deficits, strength severely globally decreased and difficult to assess given encephalopathy. Psychiatric: Affect appears flat, encephalopathic, BIPAP in place, no acute evidence of depressive or anxiety feelings but does have underlying history. Results Lab / Micro Data 09/26/23 00:30 09/26/23 00:30 Labs: Laboratory Results - last 24 hr 09/26/23 00:30: WBC 5.4, RBC 3.68 L, Hgb 10.7 L, Hct 37.6, MCV 102.2 H, MCH 29.1, MCHC 28.5 L, RDW Std Deviation 49.0 H, RDW Coeff of Deonte 13.0, Plt Count 157, MPV 10.4, Immature Gran % (Auto) 0.700, Neut % (Auto) 53.1, Lymph % (Auto) 30.8, Taylor % (Auto) 10.9 H, Eos % (Auto) 4.1, Baso % (Auto) 0.4, Absolute Neuts (auto) 2.9, Absolute Lymphs (auto) 1.67, Nucleated RBC % 0, Sodium 144, Potassium 4.5, Chloride 100, Carbon Dioxide 45.0 H, Anion Gap -1 L, BUN 12, Creatinine 0.71, Estim Creat Clear Calc 58.12, Est GFR (MDRD) Af Amer 105, Est GFR (MDRD) Non-Af 87, BUN/Creatinine Ratio 16.9, Glucose 126 H, Calcium 8.9, Total Bilirubin 0.20, Direct Bilirubin 0.08, AST 13 L, ALT 12 L, Alkaline Phosphatase 83, Total Protein 7.0, Albumin 3.4, Globulin 3.6 09/26/23 00:45: Phenytoin 4.6 L 09/26/23 00:55: Urine Color Yellow, Urine Clarity Clear, Urine pH 6.0, Ur Specific [place] 1.020, Urine Protein 100 H, Urine Glucose (UA) Normal, Urine Ketones 5 H, Urine Occult Blood 50 H, Urine Nitrite Negative, Urine Bilirubin Negative, Urine Urobilinogen Normal, Ur Leukocyte Esterase 25 H, Urine RBC 0-5 SEEN, Urine WBC 5-10 SEEN, Ur Squamous Epith Cells 0 SEEN, Urine Bacteria 1+, Hyaline Casts 0-5 SEEN, Urine Mucus 0 SEEN ABG Data ABG results: ABG 09/26/23 02:32 Specimen Type ART Sample Site L Radial pH 7.14 L* Bicarbonate Actual 46.6 H Total CO2 > 50 Base Excess 18 H O2 Saturation 98 O2 % 4.0 ABG pCO2 137.0 H* ABG pO2 142 H Royal Test N/A O2 Delivery Device Cannula Vent Mode Not entered Crit Call To/Read Back Yes Blood Gas Notified Whom Dr Figueroa Blood Gas Notified Time 02:34:20 Imaging Radiology Impression Brain CT 09/26/23 00:36 IMPRESSION: No acute intracranial abnormality. Electronically Signed: Pablo Berry DO at 2:03 EDT , Chest X-Ray 09/26/23 01:14 IMPRESSION: No evidence of acute cardiopulmonary disease. Electronically Signed: Pablo Berry, DO at 2:06 EDT , Assessment & Plan Assessment/Plan (1) Altered mental status: (2) Seizure: PLAN: Plan The patient is a 67 y/o F w/ PMHx: Seizure disorder, COPD w/ Chronic Hypoxic Respiratory Failure (2L NC) s/p tracheostomy (07/10/22), HFpEF w/ Hx Takotsubo cardiomyopathy, Hx CVA w/ Chronic dysphagia with aspiration history on altered diet w/ prior PEG tube (07/09/22) w/ also known 01/2022 Hemorrhagic CVA with transition to [facility] with surgical intervention, Seizure disorder, GERD, Chronic normocytic anemia, Hx VTE, HTN, HLD, TIO, Chronic Depression and Anxiety, History of Breast CA, Former EtOH Abuse who presents to the [facility] ED on 09/26/23 w/ history of unresponsive episode with possible syncope versus seizure with patie nt reportedly needing to use the restroom and her was helping her however before she got to the bathroom her legs gave out and she fell to the floor and was reportedly rhythmically shaking like seizure like activity with history of seizures supposedly doing well with no seizures since 15 months prior prompting ED evaluation. #1. Acute Encephalopathy secondary to Seizure disorder with breakthrough seizure with postictal status with subtherapeutic phenytoin level in addition to significant hypercapnia: Patient with witnessed breakthrough seizure per her significant on day of presentation, clinically improved upon ED arrival, previously had been on Keppra as well as phenytoin, clarifying his list currently only mentions phenytoin, phenytoin level subtherapeutic, will admit to the ICU, will continue BiPAP with repeat ABG to assess for improvement, will closely monitor for need for intubation, will consult dough molder per protocol, maintain on telemetry monitoring, will load with phenytoin and continue IV regimen pending neurology input, will have as needed Ativan for any breakthrough seizures, will maintain on fall and aspiration precautions as well as seizure precautions, will request neurology consultation to be cautious. #2. Chronic COPD with chronic hypoxic respiratory failure with his noted significant hypercapnia #1: Previous history of tracheostomy, as noted planned BiPAP, transition to supplemental oxygen as needed, will maintain on ATC duonebs, PRN albuterol, HOB, IS parameters. #3. Hx Takotsubo cardiomyopathy, HFpEF: 10/09/2022 echocardiogram with LVEF 55%, apical hypokinesis, LA mildly enlarged, moderate MVI, once oral intake appropriate will continue aspirin, statin, Lasix, metoprolol, not on KATHLEEN or/ARB. #4. Hypertension: Once oral intake appropriate will continue Lasix, metoprolol home regimen with as needed IV hydralazine. #5. Hyperlipidemia: Once oral intake appropriate will continue statin therapy. #6. Hx CVA, most recently Hx Hemorrhagic CVA: Patient with prior history of strokes including 01/2022 hemorrhagic stroke requiring transfer to [facility] and intervention at that time. Once oral intake appropriate will continue aspirin, statin, hypertensive regimen as noted. For now will transition to [place] ASA. #7. Hx VTE: Previous history DVT, not currently chronically anticoagulated especially given history of intracranial hemorrhage. #8. Chronic anemia, macrocytic admission hemoglobin 10.7, MCV 102.2, baseline hemoglobin primarily 9-10, will continue to trend CBC. #9. Anxiety and Depression: once oral intake appropriate will continue mirtazapine, duloxetine, aripiprazole home regimen. #10. RLS: Per current list not on regimen, previously had been on Requip. #11. Former tobacco use: Encourage continued tobacco cessation. #12. GERD: Transition to IV PPI. #13. TIO: BIPAP q HS normally, continue BiPAP given #1 as noted. #14. DVT prophylaxis: Lovenox. #15. CODE status: Patient STACEY is her daughter who is present and living will is currently in place. Full code based on previous discussions. Charges/Coding Visit Charges Inpatient E&M: 88892 Init Hosp L3
[2023-09-26 03:58] LABS: Magnesium 2.3 mg/dL (1.6-2.6); Phosphorus 2.9 mg/dL (2.5-4.9)
[2023-09-26] MEDS: NORMAL SALINE 0.9% IV (04:15)
[2023-09-26] MEDS: PHENYTOIN NA IV (04:15)
[2023-09-26] MEDS: 0.9% Normal Saline (1000mL) 1,000 ML 100 ML IV (05:10)
[2023-09-26] MEDS: Pantoprazole Sodium 40 MG in 0.9% Normal Saline (100mL MB+) 100 ML 330 MG IV (05:22)
[2023-09-26 05:24] LABS: Absolute Lymphocyte Count 1.38 X10^3/uL (0.83-4.51); Basophil# 0.05 X10^3/uL; Basophil% 0.8 % (0-1); Eosinophils% 1.7 % (0-5); Hematocrit 39.6 % (37-47); Hemoglobin 11.1 g/dL (12.0-15.0); Lymphocyte # 1.38 X10^3/ul (0.83-4.51); Lymphocyte % 22.8 % (19-41); Mean Corpuscular Hgb 28.7 pg (27.0-32.0); Mean Corpuscular Volume 102.3 fL (81-99); Mean Platelet Vol. 10.8 fl (6.2-12.0); Monocyte% 8.3 % (0-10); NRBC Flagged by Analyzer 0 % (0-5); Neutrophil # 3.95 X10^3/uL (2.7-7.7); Neutrophil % 65.1 % (47-70); POSITIVE COUNT YES; Platelet Count 136 K/mm3 (150-450); RBC Distribution Width CV 13.2 % (11.6-14.6); RBC Distribution Width SD 49.4 fl (35.1-43.9); Red Blood Count 3.87 M/mm3 (4.2-5.4); White Blood Count 6.1 K/mm3 (4.4-11.0)
[2023-09-26 05:49] LABS: ALB/GLOB Ratio 0.8 RATIO (0.9-2.4); AST(SGOT) 32 U/L (15-37); Alanine Aminotransfer ALT/SGPT 15 U/L (13-56); Albumin, Serum 3.1 g/dL (3.2-5.0); Alkaline Phosphatase 85 U/L (45-117); Anion Gap 1 (5-15); BUN 12 mg/dL (7-18); BUN/Creat Ratio 22.1 RATIO (10-20); Calcium,Total 8.2 mg/dL (8.5-10.1); Chloride 105 mmol/L (98-107); Creatinine, Serum 0.54 mg/dL (0.55-1.02); EST Glomerular Filtration Rate 119 mL/min (>60); Est Glom Filt Rate - Afr Amer 143 mL/min (>60); Globulin 3.7 g/dL (2.2-4.2); Glucose 117 mg/dL (74-106); Potassium 5.1 mmol/L (3.5-5.1); Protein, Total 6.8 g/dL (6.4-8.2); Sodium Level 142 mmol/L (136-145)
[2023-09-26] MEDS: Phenytoin Na 100 MG/2 ML Vial IV (06:23)
[2023-09-26 06:32] LABS: Differential Comment SCANNED; Differential Indicated SCAN CRITERIA MET
--- NOTE | 2023-09-26 07:45 | RAD_ITS ---
INDICATION: tl placement EXAMINATION/TECHNIQUE: X-RAY - XR Chest 1 View COMPARISON: Prior study dated: 09/26/2023 FINDINGS: LINES/DEVICES: Endotracheal tube with its tip approximately 3.7 cm proximal to the claude. Nasogastric tube extends below the level of the diaphragm. Right internal jugular central venous catheter with its tip in the superior vena cava. LUNGS: No consolidation, edema or effusion. No pneumothorax. MEDIASTINUM AND CARDIOVASCULAR STRUCTURES: Cardiac silhouette not enlarged. Central airways and mediastinal contour are unremarkable. BONES AND SOFT TISSUES: Unremarkable. RAD/CXR for Line Placement IMPRESSION: 1. Support lines and tubes as described above. 2. No radiographic evidence of acute cardiopulmonary disease. Electronically Signed: Michael Benitez MD at 9:23 EDT ,
--- NOTE | 2023-09-26 07:52 | NURSING ---
0740 #20 R ankle placed, Dr.s Cagle and Laure in pt room, prep line placement/intubaton 0750 HR 86 R 28 BP 76/68 SpO2 % 92, bipap 100%, line placement in progress 0755 wire out, no arrthymia , good blood return all 3 ports HR 87 R 21 BP 91/78, SpO2 92 %, suturing line in place 0800 prep for intubation. 50mg fent 4mg versed IV push HR 83 R 23 BP 105/84 0805 OET 7.5 21 cm lip, good color change. bilat breath sds. 0807 cxr completed for line/OEt/NG placement. ok for use per dr. Cagle 0810 prop at 10 and fent 50 started. HR 75, BP 44/18. pt in trendelenburg. 0815 BP 76/32, levo started 10mg, out of trendelenburg
[2023-09-26] MEDS: Midazolam 2 MG/2 ML Syringe 4 MG IV (08:00)
[2023-09-26] MEDS: fentaNYL 100 MCG/2 ML Ampul 50 MCG IV (08:00)
[2023-09-26] MEDS: fentaNYL drip 100 ML 5 MCG CONT INF (08:10)
[2023-09-26] MEDS: Propofol 10MG/Ml 1,000 MG/100 ML Bottle 16.4 MG CONT INF ×2 (08:10→13:17)
[2023-09-26] MEDS: Norepinephrine 8 MG in 0.9% Normal Saline (250mL Bag) 242 ML 9.4 MG CONT INF (08:20)
--- NOTE | 2023-09-26 08:53 | PCM.HOSP.N ---
Hospitalist Note Patient underwent nonemergent intubation this morning, Dr. Kelsey placed a right internal jugular central line under ultrasound guidance without difficulty, this was then followed by intubation by Dr. Kelsey with a 7-1/2 tube, 4mg of Versed and 50 mcg of fentanyl was given IV for sedation. I talked with the patient's daughter by phone this morning and let her know of the procedures, I could not contact the patient's significant other because the phone was not a working order. Daughter states that she will contact the patient's significant other and have a discussion with him. Levophed was started due to the patient's low blood pressure.
--- NOTE | 2023-09-26 09:05 | PCMCONS.TICU ---
HPI Consult Data Date of Consult: 09/26/23 HPI Narrative Reason for Consultation: Acute on chronic respiratory failure HPI Narrative: 67 y/o F w/ PMHx: Seizure disorder, COPD w/ Chronic Hypoxic Respiratory Failure (2L NC) s/p tracheostomy (07/10/22), HFpEF w/ Hx Takotsubo cardiomyopathy, Hx CVA w/ Chronic dysphagia with aspiration history on altered diet w/ prior PEG tube (07/09/22) w/ also known 01/2022 Hemorrhagic CVA with transition to [facility] with surgical intervention, Seizure disorder, GERD, Chronic normocytic anemia, Hx VTE, HTN, HLD, TIO, Chronic Depression and Anxiety, History of Breast CA, Former EtOH Abuse & opioid misuse who presents to the [facility] ED on 09/26/23 w/ history of unresponsive episode with possible syncope versus seizure with patient reportedly needing to use the restroom and her was helping her however before she got to the bathroom her legs gave out and she fell to the floor and was reportedly rhythmically shaking like seizure like activity with history of seizures supposedly doing well with no seizures since 15 months prior prompting ED evaluation. She was noted to have acute on chronic hypoxemic hypercapnic respiratory failure and admitted to the ICU over night for NIV support but ultimately required intubation. Pulmonary/critical care consult requested this AM. Prop @ 40 Fent @ 50 Nepi @ 10 14 400 5 50 [facility] Medical History Anxiety and depression Aspiration pneumonia due to gastric secretions Benign neoplasm of colon Carcinoma in situ of breast Chronic anemia COPD (chronic obstructive pulmonary disease) Daytime hypersomnia Diastolic CHF Essential (primary) hypertension GERD (gastroesophageal reflux disease) Hemorrhagic cerebrovascular accident (CVA) (02/09/17) History of alcohol abuse History of DVT of lower extremity (02/11/17) History of non-ST elevation myocardial infarction (NSTEMI) (02/03/17) Hyperlipidemia Insomnia Ischemic cerebrovascular accident (CVA) (02/06/17) Non-ischemic cardiomyopathy Non-rheumatic mitral regurgitation Noncompliance TIO (obstructive sleep apnea) Secondary pulmonary arterial hypertension Takotsubo cardiomyopathy (06/17/21) Home Medications aspirin 81 mg tablet 81 mg PO DAILY heart health 11/03/20 [History Last Taken Unknown] cholecalciferol (vitamin D3) 25 mcg (1,000 unit) tablet (Vitamin D3) 25 mcg PO DAILY supplement 11/03/20 [History Last Taken Unknown] pantoprazole 40 mg tablet,delayed release (Protonix) 40 mg PO DAILY GERD 11/03/20 [History Last Taken Unknown] potassium chloride 20 mEq/15 mL oral liquid 40 meq (30 mL) G-tube BID #0 mL 07/25/22 [Rx Last Taken Unknown] zolpidem 5 mg tablet (Ambien) 5 mg PO QHS PRN insomnia 30 days #30 tabs 07/25/22 [Rx Last Taken Unknown] aripiprazole 2 mg tablet (Abilify) 2 mg PO DAILY mental health 08/25/22 [History Last Taken Unknown] atorvastatin 40 mg tablet 40 mg PO QHS cholesterol 08/25/22 [History Last Taken Unknown] metoprolol succinate 25 mg tablet,extended release 24 hr 25 mg PO DAILY blood pressure 08/25/22 [History Last Taken Unknown] phenytoin 100 mg/4 mL oral suspension 100 mg (4 mL) PO Q8 30 days #360 mL 10/12/22 [Rx Last Taken Unknown] duloxetine 30 mg capsule,delayed release 2 mg PO DAILY mental health 11/11/22 [History Last Taken Unknown] furosemide 20 mg tablet 20 mg BIDCM diuretic 11/11/22 [History Last Taken Unknown] mirtazapine 7.5 mg tablet 7.5 mg PO QHS #30 tabs 11/11/22 [Rx Last Taken Unknown] albuterol sulfate 2.5 mg/3 mL (0.083 %) solution for nebulization 2.5 mg (3 mL) inhalation Q2H PRN PRN Dyspnea, wheezing #180 mL 06/30/23 [Rx Last Taken Unknown] albuterol sulfate 90 mcg/actuation aerosol inhaler 2 inh inhalation Q4H #8.5 grams 06/30/23 [Rx Last Taken Unknown] fluticasone fur. 100 mcg-umeclid 62.5 mcg-vilant 25 mcg inhalat.powder (Trelegy Ellipta) 1 inh inhalation DAILY 30 days #60 ea 06/30/23 [Rx Last Taken Unknown] ipratropium 0.5 mg-albuterol 3 mg (2.5 mg base)/3 mL nebulization soln 3 ml inhalation Q6HWA.RT #180 mL 06/30/23 [Rx Last Taken Unknown] nystatin 100,000 unit/mL oral suspension 5 ml mucous membrane TID #250 mL 06/30/23 [Rx Last Taken Unknown] Allergy/AdvReac Type Severity Reaction Status Date / Time tetanus and diphtheria Allergy Hives Verified 08/05/23 17:37 toxoids [tetanus & diphtheria toxoids] Family History Sister Cancer lung Father Cancer lung Mother Cancer lung Surgical History H/O: section History of bilateral cataract extraction History of cholecystectomy History of left heart catheterization (06/17/21) History of lumpectomy History of tracheostomy Hx of appendectomy S/P percutaneous endoscopic gastrostomy (PEG) tube placement Social History (Updated 09/26/23 @ 03:[address] Yazmin Buitrago MD) household members: spouse Smoking Status: Former smoker how long ago did patient quit smokin, 1pk/day second hand exposure: Yes alcohol intake: former substance use type: does not use what type of physical activity do you participate in: walking frequency: daily Objective Data Objective Data Vital Signs: Vital Signs Last response Temperature 35.2 C L 09/26/23 04:51 Temperature Source Temporal 09/26/23 04:51 Pulse Rate 71 09/26/23 07:00 Respiratory Rate 18 09/26/23 07:00 Respiratory Effort Short of Breath 09/26/23 05:15 Respiratory Depth Shallow 09/26/23 05:15 Respiratory Pattern Tachypnea 09/26/23 05:15 Blood Pressure 89/74 L 09/26/23 07:00 Blood Pressure Mean 79 09/26/23 07:00 Blood Pressure Source Monitor 09/26/23 07:00 Blood Pressure Position Semi-Fowlers 09/26/23 07:00 Blood Pressure Location Left Arm 09/26/23 07:00 Pulse Ox 93 09/26/23 07:00 Oxygen Delivery Method Bi-pap 09/26/23 07:00 Oxygen Flow Rate (L/min) 4 09/26/23 02:00 Fraction of Inspired Oxygen (FIO2) 100 09/26/23 07:00 I&O: I&O Last 24 Hours 09/25/23 09/25/23 09/26/23 11:59 23:59 11:59 Intake Total 1872.57 / 1872.57 Balance 1872.57 / 1872.57 I&O: Total Stay 09/26/23 00:19 thru 09/26/23 05:42 Intake Total 1872. Balance 1872.57 Current Meds Ordered / Administered: Current meds ordered / Administered Generic Name Dose Route Start Last Admin Trade Name Freq PRN Reason Stop Dose Admin Acetaminophen 650 mg 09/26/23 04:12 Acetaminophen 650 Mg Suppository RC Q4H PRN PRN Fever, pain 1-10 Albuterol Sulfate 2.5 mg 09/26/23 04:12 Albuterol 2.5 Mg/3 Ml Vial.Neb. INHALATION Q2H PRN PRN Dyspnea, wheezing Albuterol/Ipratropium 3 ml 09/26/23 04:12 Ipratropium/Albuterol Sulfate 3 Ml Ampul.Neb INHALATION Q6HWA.RT WALTER Aspirin 300 mg 09/26/23 10:00 Aspirin 300 Mg Suppository RC DAILY WALTER Calamine/Phenol 1 applic 09/26/23 10:00 Menthol/Lanolin/Calamine/Znox 113 Gm Tube TOPICAL 4X/DAY [facility] Protocol Enoxaparin Sodium 40 mg 09/26/23 10:00 Enoxaparin 40 Mg/0.4 Ml Syringe SC DAILY WALTER Hydralazine HCl 10 mg 09/26/23 04:12 Hydralazine 20 Mg/Ml Vial IV Q4H PRN PRN SBP > 160 Protocol Sodium Chloride 1,000 mls @ 100 mls/hr 09/26/23 04:12 09/26/23 05:42 IV 09/26/23 14:11 100 mls/hr .Q10H WALTER Infusion Sodium Chloride 250 mls @ 15 mls/hr 09/26/23 04:16 IV .[id number] PRN Additional IVPB Infusion Pantoprazole Sodium 40 mg/ 110 mls @ 330 mls/hr 09/26/23 04:30 09/26/23 05:42 Sodium Chloride IV Infused Q12 WALTER Infusion Norepinephrine Bitartrate 8 mg 250 mls @ 9.375 mls/hr 09/26/23 08:00 / Sodium Chloride CONT INF .[id number] [facility] Protocol 5 MCG/MIN Ondansetron HCl 4 mg 09/26/23 04:12 Ondansetron 4 Mg/2 Ml Vial IV Q8H PRN PRN NAUSEA/VOMITING Phenytoin Sodium 100 mg 09/26/23 06:00 09/26/23 06:23 Phenytoin Na 100 Mg/2 Ml Vial IV 100 mg Q8 WALTER Administration Prochlorperazine Edisylate 5 mg 09/26/23 04:12 Prochlorperazine 10 Mg/2 Ml Vial IV Q4H PRN PRN Breakthrough Nausea/Vomiting Sodium Chloride 10 - 40 ml 09/26/23 04:16 0.9% Saline Lock 10 Ml Syringe IV UD PRN SALINE FLUSH Lab / Micro Data 09/26/23 05:05 09/26/23 05:05 Labs: Laboratory Results - last 24 hr 09/26/23 00:30: WBC 5.4, RBC 3.68 L, Hgb 10.7 L, Hct 37.6, MCV 102.2 H, MCH 29.1, MCHC 28.5 L, RDW Std Deviation 49.0 H, RDW Coeff of Deonte 13.0, Plt Count 157, MPV 10.4, Immature Gran % (Auto) 0.700, Neut % (Auto) 53.1, Lymph % (Auto) 30.8, [place] % (Auto) 10.9 H, Eos % (Auto) 4.1, Baso % (Auto) 0.4, Absolute Neuts (auto) 2.9, Absolute Lymphs (auto) 1.67, Nucleated RBC % 0, Sodium 144, Potassium 4.5, Chloride 100, Carbon Dioxide 45.0 H, Anion Gap -1 L, BUN 12, Creatinine 0.71, Estim Creat Clear Calc 58.12, Est GFR (MDRD) Af Amer 105, Est GFR (MDRD) Non-Af 87, BUN/Creatinine Ratio 16.9, Glucose 126 H, Calcium 8.9, Phosphorus 2.9, Magnesium 2.3, Total Bilirubin 0.20, Direct Bilirubin 0.08, AST 13 L, ALT 12 L, Alkaline Phosphatase 83, Total Protein 7.0, Albumin 3.4, Globulin 3.6 09/26/23 00:45: Phenytoin 4.6 L 09/26/23 00:55: Urine Color Yellow, Urine Clarity Clear, Urine pH 6.0, Ur Specific [place] 1.020, Urine Protein 100 H, Urine Glucose (UA) Normal, Urine Ketones 5 H, Urine Occult Blood 50 H, Urine Nitrite Negative, Urine Bilirubin Negative, Urine Urobilinogen Normal, Ur Leukocyte Esterase 25 H, Urine RBC 0-5 SEEN, Urine WBC 5-10 SEEN, Ur Squamous Epith Cells 0 SEEN, Urine Bacteria 1+, Hyaline Casts 0-5 SEEN, Urine Mucus 0 SEEN 09/26/23 05:05: WBC 6.1, RBC 3.87 L, Hgb 11.1 L, Hct 39.6, MCV 102.3 H, MCH 28.7, MCHC 28.0 L, RDW Std Deviation 49.4 H, RDW Coeff of Deonte 13.2, Plt Count 136 L, MPV 10.8, Immature Gran % (Auto) 1.300 H, Neut % (Auto) 65.1, Lymph % (Auto) 22.8, [place] % (Auto) 8.3, Eos % (Auto) 1.7, Baso % (Auto) 0.8, Absolute Neuts (auto) 4.0, Absolute Lymphs (auto) 1.38, Nucleated RBC % 0, Differential Comment SCANNED, Sodium 142, Potassium 5.1, Chloride 105, Carbon Dioxide 36.0 H, Anion Gap 1 L, BUN 12, Creatinine 0.54 L, Estim Creat Clear Calc 63.90, Est GFR (MDRD) Af Amer 143, Est GFR (MDRD) Non-Af 119, BUN/Creatinine Ratio 22.1 H, Glucose 117 H, Calcium 8.2 L, Total Bilirubin 0.20, AST 32, ALT 15, Alkaline Phosphatase 85, Total Protein 6.8, Albumin 3.1 L, Globulin 3.7, Albumin/Globulin Ratio 0.8 L ABG Data ABG results: ABG 09/26/23 09/26/23 02:32 07:02 Specimen Type ART GÉNESIS Sample Site L Radial L Brach pH 7.14 L* Bicarbonate Actual 46.6 H Total CO2 > 50 Base Excess 18 H O2 Saturation 98 O2 % 4.0 70.0 ABG pCO2 137.0 H* ABG pO2 142 H Royal Test N/A VBG pH 7.19 L* VBG pO2 192 H VBG HCO3 46 H VBG Total CO2 49 H VBG O2 Sat (Calc) 99 H VBG Base Excess 17 H POC Mix VBG pCO2 Pt Tmp 120.7 H* O2 Delivery Device Cannula BiPAP Vent Mode Not entered Tidal Volume 500.0 Crit Call To/Read Back Yes Yes Blood Gas Notified Whom Dr Figueroa white Blood Gas Notified Time 02:34:20 07:04:22 Clinical Comments Imaging Radiology Impression Brain CT 09/26/23 00:36 IMPRESSION: No acute intracranial abnormality. Electronically Signed: Pablo BerryDO at 2:03 EDT , Chest X-Ray 09/26/23 01:14 IMPRESSION: No evidence of acute cardiopulmonary disease. Electronically Signed: Pabloterry BerryDO at 2:06 EDT , Assessment and Plan . Assessment and plan: PE: General: Well developed acute on chronically ill appearing, intubated HEENT: anicteric Sclera; + ETT, nl nose; supple neck, no masses Cardiovascular: Regular Rate and Rhythm; No murmurs, rubs, gallops; no displaced PMI Respiratory: diminished with scattered basilar crackles; no rhonchi Abdominal: Non-tender; Non distended; hypoBS x 4; No Hepatosplenomegaly Extremities: Warm, well perfused; No clubbing, cyanosis; capillary refill < 2 sec Neurological: sedated, unresponsive A/P #Acute on chronic hypoxemic hypercapnic respiratory failure: prior Hx trach; intubated 09/25 for airway protection; settings reviewed/adjusted; cont sedation/analgesia but can use a BZD-forward strategy given her on-going seizures #Acute encephalopathy: likely multifactorial including significant hypercapnia & postictal #Seizure disorder with breakthrough seizure: sp phenytoin load on admit; continue IV regimen & monitor levels; pending EEG & neurology consult; cont seizure, fall and aspiration precautions --> during my exam patient had what appears to be another seizure episode lasting ~2 min; Ativan IVP & Keppra given; we are unable to get stat EEG or cEEG so she needs Tx for HLOC; monitor AED levels #COPD: cont ATC duonebs; steroids if strong suggestion of acute exacerbation #Hx Takotsubo cardiomyopathy, HFpEF: TTE 10/09/2022 LVEF 55% with apical hypokinesis; cont diuresis + BB #Hx CVA: prior history of strokes including 01/2022 hemorrhagic stroke requiring transfer to [facility] and intervention at that time #Hx VTED: not currently chronically anticoagulated given history of intracranial hemorrhage. #Chronic anemia, macrocytic: cont close H/H monitoring; transfuse per usual parameters #Anxiety and Depression: cont home mirtazapine, duloxetine, aripiprazole via enteric tube #GERD: PPI #TIO on home NIV #DLD #HTN #RLS #Former tobacco use NPO LMWH, PPI Poor prognosis Discussed with hospitalist who agrees with urgent Tx for HLOC. Critical Care Time: 60 min The entirety of this encounter was done via Telemedicine
--- NOTE | 2023-09-26 09:38 | CPS ---
Unable to rerun ABG for critical value due to insufficient sample.
--- NOTE | 2023-09-26 09:38 | CPS ---
Unable to verify critical value times two due to insufficent sample amount. Reported critical to RN in charge of the patient.
[2023-09-26 09:41] LABS: Allen Test Positive; Base Excess 11 mmol/L (-2 to +2); Bicarbonate 31.9 mmol/L (22-26); Blood Gas Specimen Type ART; Mode AC; O2 Delivery Device Adult Vent; PEEP 5; PO2 193 mmHG (75-100); RR 14; SITE L Radial; SO2 100 % (95-99); Total Carbon Dioxide 33 mmol/L; pCO2 31.4 mmHg (35-45); pH 7.62 (7.35-7.45)
[2023-09-26] MEDS: Lactated Ringers 1,000 ML 75 ML IV (10:00)
[2023-09-26] MEDS: Midazolam 50 MG in 0.9% Normal Saline (100mL Bag) 90 ML CONT INF (10:10)
[2023-09-26] MEDS: levETIRAcetam IV 1,000 MG/100 ML BAG 400 MG IV (10:13)
[2023-09-26] MEDS: LORazepam 2 MG/ML Syringe IV (10:17)
[2023-09-26] MEDS: Ipratropium/Albuterol Sulfate 3 ML AMPUL.NEB INHALATION (10:25)
[2023-09-26] MEDS: Enoxaparin 40 MG/0.4 ML Syringe SC (11:33)
[2023-09-26 12:24] LABS: Allen Test POS; Blood Gas Specimen Type ART; Mode BILEVEL; O2 Delivery Device Bi Pap; SITE L BRACHIAL
[2023-09-26 12:25] LABS: EPAP 10; RR 14
[2023-09-26 12:27] LABS: Comment AVAPS; pH 7.19 (7.35-7.45)
[2023-09-26 12:28] LABS: Base Excess 17 mmol/L (-2 to +2); Bicarbonate 45.6 mmol/L (22-26); PO2 192 mmHG (75-100); SO2 99 % (95-99); Total Carbon Dioxide 49 mmol/L; pCO2 120.7 mmHg (35-45)
--- NOTE | 2023-09-26 13:13 | PN_ITS ---
Progress Note Intubation Indication: Respiratory failure Consent was obtained from: Emergent The patient was placed in the appropriate sniffing position. Preoxygenated sedation via bag mask was provided for a minimum of 3 minutes. The patient had continuous cardiac as well as pulse oximetry monitoring during the procedure. Procedure sedation was provided by the administration of 50 mcg of fentanyl and 4 mg of Versed. Direct laryngoscopy was then performed using a number GlideScope. A 7.5 mm endotracheal tube was visualized advancing between the cords to the level of 21 cm at the lip. The stylette was then removed and discarded. Tube placement was confirmed by fogging in the tube along with equal and bilateral breath sounds. Colorimetric change was visualized on the CO2 meter. The cuff was then inflated and the tube secured using a commercially available device. A good pulse oximetry waveform was seen on the monitor throug hout the procedure. A portable chest x-ray has been ordered to confirm appropriate placement. The patient tolerated the procedure well. Procedures Hospitalists Procedures: [id number] Insert Emergency Airway
--- NOTE | 2023-09-26 13:17 | PCM.PN.BLA ---
Progress Note Central Venous Catheter Indication: Vascular access and hypotension Consent was obtained from: Emergent A time-out was completed verifying correct patient, procedure, site, positioning, and special equipment if applicable. The patient was placed in a dependent position appropriate for central line placement based on the vein to be cannulated. The patient's right neck and chest was prepped and draped in a sterile fashion. 1% lidocaine was used to anesthetize the surrounding skin area. A triple-lumen catheter was introduced into the right internal jugular using the Seldinger technique and under ultrasound guidance. The catheter was threaded smoothly over the guidewire and appropriate blood return was obtained. Each lumen of the catheter was evacuated of air and flushed with sterile saline. The catheter was then sutured in place to the skin and a sterile dressing applied. Chest x-ray to confirm appropriate positioning is pending. ULTRASOUND GUIDANCE STATEMENT (Vascular Access): I performed ultrasound image acquisition and interpretation for needle placement during the procedure. The vessel was identified and found to be free of thrombosis by compression technique. A safe point of entry was marked at the skin in an angle for axis was determined. The needle was guided by obtaining free-flowing fluid and by real-time visualization. Procedures Hospitalists Procedures: [id number] Insert Non-tunnel CV Cath
--- NOTE | 2023-09-26 13:43 | PCM.DC.SUM ---
Providers Date of Admission: 09/26/23 Date of Discharge: 09/26/23 Primary Care Physician: Dr. Maryam Pineda MD Consultations 09/26/23 04:12 Consult: Roll Coverer / Pulmonary Medicine Routine Consulting Provider: Intensivists/Pulmonary Med Reason for Consult: Encephalopathy, Seizure breakthrough, Hypercapnia. EMERGENT Consult: No MD Notified: Yes Date Notified: 09/26/23 Time Notified: 03:17 Method of Notification: Text Reason For Visit: ENCEPHALOPATHY, SEIZURE, HYPERCAPNIA Diagnosis Discharge Diagnosis (1) Altered mental status: Status: Acute Code(s): R41.82 - Altered mental status, unspecified (2) Seizure: Status: Acute Code(s): R56.9 - Unspecified convulsions Plan 1. Combined respiratory failure #2 chronic obstructive pulmonary disease #3 seizure disorder with active seizure activity during hospitalization #4 encephalopathy secondary to #1 and #3 #5 obstructive sleep apnea #6 distributive shock Medications at Discharge Home Medications aspirin 81 mg tablet 81 mg PO DAILY heart health 11/03/20 cholecalciferol (vitamin D3) 25 mcg (1,000 unit) tablet (Vitamin D3) 25 mcg PO DAILY supplement 11/03/20 pantoprazole 40 mg tablet,delayed release (Protonix) 40 mg PO DAILY GERD 11/03/20 potassium chloride 20 mEq/15 mL oral liquid 40 meq (30 mL) G-tube BID #0 mL 07/25/22 zolpidem 5 mg tablet (Ambien) 5 mg PO QHS PRN insomnia 30 days #30 tabs 07/25/22 aripiprazole 2 mg tablet (Abilify) 2 mg PO DAILY mental health 08/25/22 atorvastatin 40 mg tablet 40 mg PO QHS cholesterol 08/25/22 metoprolol succinate 25 mg tablet,extended release 24 hr 25 mg PO DAILY blood pressure 08/25/22 phenytoin 100 mg/4 mL oral suspension 100 mg (4 mL) PO Q8 30 days #360 mL 10/12/22 duloxetine 30 mg capsule,delayed release 2 mg PO DAILY mental health 11/11/22 furosemide 20 mg tablet 20 mg BIDCM diuretic 11/11/22 mirtazapine 7.5 mg tablet 7.5 mg PO QHS #30 tabs 11/11/22 albuterol sulfate 2.5 mg/3 mL (0.083 %) solution for nebulization 2.5 mg (3 mL) inhalation Q2H PRN PRN Dyspnea, wheezing #180 mL 06/30/23 albuterol sulfate 90 mcg/actuation aerosol inhaler 2 inh inhalation Q4H #8.5 grams 06/30/23 fluticasone fur. 100 mcg-umeclid 62.5 mcg-vilant 25 mcg inhalat.powder (Trelegy Ellipta) 1 inh inhalation DAILY 30 days #60 ea 06/30/23 ipratropium 0.5 mg-albuterol 3 mg (2.5 mg base)/3 mL nebulization soln 3 ml inhalation Q6HWA.RT #180 mL 06/30/23 nystatin 100,000 unit/mL oral suspension 5 ml mucous membrane TID #250 mL 06/30/23 Hospital Course Operations None Procedures Intubation and - (Triple-lumen venous catheter insertion) Summary of Care Provided Minutes Spent on Discharge: 31 Hospital Course: This 67-year-old white female was seen in the emergency room at [facility] after being brought in secondary to an unresponsive episode at home, her significant other was helping her to the bathroom, her legs gave out and she fell to the floor, at that point he saw seizure activity, patient has a history of seizure disorder and is taking Dilantin chronically. Labs were obtained in the emergency room, patient's CBC was unremarkable, patient's chemistry panel was unremarkable. UA showed +1 bacteria and only 5-10 WBCs and only 0-5 RBCs. Patient's Dilantin level was low at 4.6, blood gases on nasal cannula revealed a pCO2 of 137 and a pO2 of 142 on 4 L. pH was 7.14. Patient was placed on BiPAP and admitted to ICU, IV Dilantin was given to the patient, patient's repeat blood gases on 09/26/2023 showed a pH of 7.18, pCO2 120, pO2 192. It was decided that time to intubate the patient, patient was intubated without difficulty and a central line was placed, shortly after this, patient was started on Levophed due to shock, intensive care physician via telemedicine saw the patient noticed seizure activity and the patient was given additional medications for seizure and it was recommended that he she be transferred to a tertiary hospital with continuous EEG capabilities, I contacted [facility] and they agreed to take the patient. The patient was air flighted to that facility on 09/26/2023 in stable condition. On 09/26/2023, patient was seen and examined: On examination she is sedated and on the ventilator vital signs as documented. Skin warm and dry and without overt rashes. Neck without JVD, thyroid appears normal, trachea is midline, neck is supple. Lungs clear, normal air movement was noted. Heart exam notable for regular rhythm, normal sounds and absence of murmurs, rubs or gallops. Abdomen unremarkable and without evidence of organomegaly, masses, or abdominal aortic enlargement, bowel sounds are present in all 4 quadrants, no abdominal tenderness was noted. Extremities nonedematous, no cyanosis was noted, no clubbing was noted. Neuro: Patient is sedated and on the ventilator psych: Patient is sedated and on the ventilator. Weight / BMI Weight Weight: 68.3 kg Body Mass Index (BMI) 25.8 ABG / Lab / Microbiology Data 09/26/23 05:05 09/26/23 05:05 Laboratory: Laboratory Results - last 24 hr 09/26/23 00:30: WBC 5.4, RBC 3.68 L, Hgb 10.7 L, Hct 37.6, MCV 102.2 H, MCH 29.1, MCHC 28.5 L, RDW Std Deviation 49.0 H, RDW Coeff of Deonte 13.0, Plt Count 157, MPV 10.4, Immature Gran % (Auto) 0.700, Neut % (Auto) 53.1, Lymph % (Auto) 30.8, Hunt % (Auto) 10.9 H, Eos % (Auto) 4.1, Baso % (Auto) 0.4, Absolute Neuts (auto) 2.9, Absolute Lymphs (auto) 1.67, Nucleated RBC % 0, Sodium 144, Potassium 4.5, Chloride 100, Carbon Dioxide 45.0 H, Anion Gap -1 L, BUN 12, Creatinine 0.71, Estim Creat Clear Calc 58.12, Est GFR (MDRD) Af Amer 105, Est GFR (MDRD) Non-Af 87, BUN/Creatinine Ratio 16.9, Glucose 126 H, Calcium 8.9, Phosphorus 2.9, Magnesium 2.3, Total Bilirubin 0.20, Direct Bilirubin 0.08, AST 13 L, ALT 12 L, Alkaline Phosphatase 83, Total Protein 7.0, Albumin 3.4, Globulin 3.6 09/26/23 00:45: Phenytoin 4.6 L 09/26/23 00:55: Urine Color Yellow, Urine Clarity Clear, Urine pH 6.0, Ur Specific [place] 1.020, Urine Protein 100 H, Urine Glucose (UA) Normal, Urine Ketones 5 H, Urine Occult Blood 50 H, Urine Nitrite Negative, Urine Bilirubin Negative, Urine Urobilinogen Normal, Ur Leukocyte Esterase 25 H, Urine RBC 0-5 SEEN, Urine WBC 5-10 SEEN, Ur Squamous Epith Cells 0 SEEN, Urine Bacteria 1+, Hyaline Casts 0-5 SEEN, Urine Mucus 0 SEEN 09/26/23 05:05: WBC 6.1, RBC 3.87 L, Hgb 11.1 L, Hct 39.6, MCV 102.3 H, MCH 28.7, MCHC 28.0 L, RDW Std Deviation 49.4 H, RDW Coeff of Deonte 13.2, Plt Count 136 L, MPV 10.8, Immature Gran % (Auto) 1.300 H, Neut % (Auto) 65.1, Lymph % (Auto) 22.8, Hunt % (Auto) 8.3, Eos % (Auto) 1.7, Baso % (Auto) 0.8, Absolute Neuts (auto) 4.0, Absolute Lymphs (auto) 1.38, Nucleated RBC % 0, Differential Comment SCANNED, Sodium 142, Potassium 5.1, Chloride 105, Carbon Dioxide 36.0 H, Anion Gap 1 L, BUN 12, Creatinine 0.54 L, Estim Creat Clear Calc 63.90, Est GFR (MDRD) Af Amer 143, Est GFR (MDRD) Non-Af 119, BUN/Creatinine Ratio 22.1 H, Glucose 117 H, Calcium 8.2 L, Total Bilirubin 0.20, AST 32, ALT 15, Alkaline Phosphatase 85, Total Protein 6.8, Albumin 3.1 L, Globulin 3.7, Albumin/Globulin Ratio 0.8 L ABG: ABG 09/26/23 09/26/23 09/26/23 02:32 07:02 07:02 Specimen Type ART Cancelled ART Sample Site L Radial Cancelled pH 7.14 L* Bicarbonate Actual 46.6 H Total CO2 > 50 Base Excess 18 H O2 Saturation 98 O2 % 4.0 ABG pCO2 137.0 H* ABG pO2 142 H Royal Test N/A VBG pH VBG pH (Temp Correct) VBG pCO2 (Temp Corrct VBG pO2 VBG HCO3 VBG Total CO2 VBG O2 Sat (Calc) VBG Base Excess POC Mix VBG pCO2 Pt Tmp Respiration Rate O2 Delivery Device Cannula Liter Flow Minute Volume Vent Mode Not entered Inspiratory Time Expiratory Time Tidal Volume Mean Airway Pressure POC PEEP Peak Inspir Pressure POC Pressure Suppt Pressure Control EPAP IPAP Blood Gas Comments Crit Call To/Read Back Yes Blood Gas Notified Whom Dr Figueroa Blood Gas Notified Time 02:34:20 Clinical Comments 09/26/23 09/26/23 09/26/23 07:02 07:02 07:02 Specimen Type Sample Site L BRACHIAL pH 7.19 L* Bicarbonate Actual 45.6 H Total CO2 49 Base Excess 17 H O2 Saturation 99 O2 % Cancelled 70.0 ABG pCO2 120.7 H* ABG pO2 192 H Royal Test POS VBG pH Cancelled VBG pH (Temp Correct) Cancelled VBG pCO2 (Temp Corrct Cancelled VBG pO2 Cancelled VBG HCO3 Cancelled VBG Total CO2 Cancelled VBG O2 Sat (Calc) Cancelled VBG Base Excess Cancelled POC Mix VBG pCO2 Pt Tmp Cancelled Respiration Rate Cancelled 14 O2 Delivery Device Cancelled Liter Flow Minute Volume Vent Mode Inspiratory Time Expiratory Time Tidal Volume Mean Airway Pressure POC PEEP Peak Inspir Pressure POC Pressure Suppt Pressure Control EPAP IPAP Blood Gas Comments Crit Call To/Read Back Blood Gas Notified Whom Blood Gas Notified Time Clinical Comments 09/26/23 09/26/23 09/26/23 07:02 07:02 07:02 Specimen Type Sample Site pH Bicarbonate Actual Total CO2 Base Excess O2 Saturation O2 % ABG pCO2 ABG pO2 Royal Test VBG pH VBG pH (Temp Correct) VBG pCO2 (Temp Corrct VBG pO2 VBG HCO3 VBG Total CO2 VBG O2 Sat (Calc) VBG Base Excess POC Mix VBG pCO2 Pt Tmp Respiration Rate O2 Delivery Device Bi Pap Liter Flow Cancelled Minute Volume Cancelled Vent Mode BILEVEL Inspiratory Time Cancelled Expiratory Time Cancelled Tidal Volume Cancelled 500.0 Mean Airway Pressure Cancelled POC PEEP Cancelled Peak Inspir Pressure Cancelled POC Pressure Suppt Cancelled Pressure Control Cancelled EPAP Cancelled 10 IPAP Cancelled Blood Gas Comments Cancelled Crit Call To/Read Back Cancelled Blood Gas Notified Whom Blood Gas Notified Time Clinical Comments 09/26/23 09/26/23 09/26/23 07:02 07:02 07:02 Specimen Type Sample Site pH Bicarbonate Actual Total CO2 Base Excess O2 Saturation O2 % ABG pCO2 ABG pO2 Royal Test VBG pH VBG pH (Temp Correct) VBG pCO2 (Temp Corrct VBG pO2 VBG HCO3 VBG Total CO2 VBG O2 Sat (Calc) VBG Base Excess POC Mix VBG pCO2 Pt Tmp Respiration Rate O2 Delivery Device Liter Flow Minute Volume Vent Mode Inspiratory Time Expiratory Time Tidal Volume Mean Airway Pressure POC PEEP Peak Inspir Pressure POC Pressure Suppt Pressure Control EPAP IPAP Blood Gas Comments Crit Call To/Read Back Yes Blood Gas Notified Whom Cancelled KORAM Blood Gas Notified Time Cancelled 0706 Clinical Comments Cancelled 09/26/23 09/26/23 07:02 09:38 Specimen Type ART Sample Site L Radial pH 7.62 H* Bicarbonate Actual 31.9 H Total CO2 33 Base Excess 11 H O2 Saturation 100 H O2 % 50.0 ABG pCO2 31.4 L ABG pO2 193 H Royal Test Positive VBG pH VBG pH (Temp Correct) VBG pCO2 (Temp Corrct VBG pO2 VBG HCO3 VBG Total CO2 VBG O2 Sat (Calc) VBG Base Excess POC Mix VBG pCO2 Pt Tmp Respiration Rate 14 O2 Delivery Device Adult Vent Liter Flow Minute Volume Vent Mode AC Inspiratory Time Expiratory Time Tidal Volume 400.0 Mean Airway Pressure POC PEEP 5 Peak Inspir Pressure POC Pressure Suppt Pressure Control EPAP IPAP Blood Gas Comments Crit Call To/Read Back Yes Blood Gas Notified Whom Blood Gas Notified Time Clinical Comments AVAPS Radiography Diagnostic Testing: Radiology Impression Brain CT 09/26/23 00:36 IMPRESSION: No acute intracranial abnormality. Electronically Signed: Pablo Berry DO at 2:03 EDT , Chest X-Ray 09/26/23 01:14 IMPRESSION: No evidence of acute cardiopulmonary disease. Electronically Signed: Pablo Berry DO at 2:06 EDT , Chest X-Ray 09/26/23 07:45 IMPRESSION: 1. Support lines and tubes as described above. 2. No radiographic evidence of acute cardiopulmonary disease. Electronically Signed: Michael Benitez MD at 9:23 EDT , Meaningful Use Info Meaningful Use Diagnoses (Choose all that apply): None applicable Discharge Plan Admission Admit Date/Time: 09/26/23 03:15 Attending Provider: César Cagle Primary Care Provider: Maryam Pineda Consulting Providers: Yazmin Buitrago; Catalino Yap; Mike Duarte; Anurag Flannery; Brian Barry; Evelyne Machado; Armand Ambrosio; Chula Lopez; Mainor Boateng; Mil Meyer; Kraig Varghese; Antonio Delacruz; Kishan Casillas Discharge Orders/Prescriptions Prescriptions: No Action atorvastatin 40 mg tablet 40 mg PO QHS MDD 40 metoprolol succinate 25 mg tablet extended release 24 hr 25 mg PO DAILY MDD 25 aripiprazole [Abilify] 2 mg tablet 2 mg PO DAILY MDD 2mg albuterol sulfate 90 mcg/actuation HFA aerosol inhaler 2 inh inhalation Q4H Qty: 8.5 11RF albuterol sulfate 2.5 mg /3 mL (0.083 %) solution for nebulization 2.5 mg inhalation Q2H PRN PRN (Reason: Dyspnea, wheezing) Qty: 180 6RF Trelegy Ellipta 100-62.5-25 mcg blister with device 1 inh INHALATION DAILY 30 Days Qty: 60 6RF ipratropium-albuterol 0.5 mg-3 mg(2.5 mg base)/3 mL solution for nebulization 3 ml inhalation Q6HWA.RT Qty: 180 6RF nystatin 100,000 unit/mL suspension 5 ml mucous membrane TID Qty: 250 1RF Rx Instructions: swish and swallow 5 cc three times per day for 10 days pantoprazole [Protonix] 40 mg Tablet,Delayed Release (Dr/Ec) 40 mg PO DAILY aspirin 81 mg Tablet 81 mg PO DAILY cholecalciferol (vitamin D3) [Vitamin D3] 25 mcg (1,000 unit) Tablet 25 mcg PO DAILY potassium chloride 20 mEq/15 mL Liquid 40 meq G-tube BID Qty: 0 0RF zolpidem [Ambien] 5 mg tablet 5 mg PO QHS PRN (Reason: insomnia) 30 Days Qty: 30 0RF Hold Instructions: Resume on 11/18/22. Please hold discussing with your prescribing physician given your episode of confusion phenytoin 100 mg/4 mL Suspension 100 mg PO Q8 30 Days Qty: 360 2RF furosemide 20 mg tablet 20 mg BIDCM MDD 40 duloxetine 30 mg capsule,delayed release(DR/EC) 2 mg PO DAILY MDD 60 mirtazapine 7.5 mg tablet 7.5 mg PO QHS Qty: 30 0RF Referrals / Follow Up: Maryam Pineda MD [Primary Care Provider] - Disposition Discharge Orders: Discharge Patient (Routine); Ordered 09/26/23 Ordered By: Dr. César Cagle Charges/Coding Visit Charges Inpatient E&M: 52530 Disch Hosp >30min
== END 2023-09-26 13:46 | disposition short-term general hospital (02) | DRG 189 ==
LOC: ED 03:15 → ICU 03:20
PROVIDERS: Admitting Provider Family Medicine; Emergency Provider Emergency Medicine; PCP Internal Medicine; Visit Provider Internal Medicine
DX: J96.22 Acute and chronic respiratory failure with hypercapnia (principal); R57.9 Shock, unspecified; G93.40 Encephalopathy, unspecified; I42.8 Other cardiomyopathies; I50.32 Chronic diastolic (congestive) heart failure; E87.29 Other acidosis; G40.909 Epilepsy, unspecified, not intractable, without status epilepticus; I11.0 Hypertensive heart disease with heart failure; J44.9 Chronic obstructive pulmonary disease, unspecified; J96.21 Acute and chronic respiratory failure with hypoxia; D53.9 Nutritional anemia, unspecified; G25.81 Restless legs syndrome; E78.5 Hyperlipidemia, unspecified; F41.9 Anxiety disorder, unspecified; K21.9 Gastro-esophageal reflux disease without esophagitis; G47.33 Obstructive sleep apnea (adult) (pediatric); I25.2 Old myocardial infarction; Z79.51 Long term (current) use of inhaled steroids; G47.00 Insomnia, unspecified; Z79.82 Long term (current) use of aspirin; Z87.891 Personal history of nicotine dependence; Z86.73 Personal history of transient ischemic attack (TIA), and cerebral infarction without residual deficits; Z86.718 Personal history of other venous thrombosis and embolism
CPT/HCPCS: 31500; 31720; 36600; 70450; 71045; 80048; 80053; 80076; 80185; 81001; 82803; 83735; 84100; 85025; 87070; 87205; 93005; 94002; 94640; 97802; 99252; 99285; J7030; J7050; J7120; A4216; C1751; G0463

== ENCOUNTER 2023-11-15 10:45 | Inpatient (IN) | payer MEDICARE, SELFPAY ==
[2023-11-15] VITALS (10 sets, daily range): BP systolic 89–117; BP diastolic 50–70; PULSE 77–90; RESP 14–20; TEMP 36.2–36.9; O2SAT 93–98; BMI 23.5; BMI 23.1
--- NOTE | 2023-11-15 11:17 | RAD_ITS ---
EXAM: XR CHEST, 1 VIEW CLINICAL INDICATION: Dyspnea. TECHNIQUE: Frontal view of the chest. COMPARISON: No relevant prior studies available. FINDINGS: LUNGS AND PLEURAL SPACES: Mild pulmonary hyperinflation and flattening of the hemidiaphragms. No suspicious infiltrates, consolidation or edema. No pneumothorax. No effusion. HEART: Borderline cardiomegaly. MEDIASTINUM: Central airways and mediastinal contour are unremarkable. BONES/JOINTS: Unremarkable. No acute fracture. SOFT TISSUES: Unremarkable. TUBES, LINES AND DEVICES: Midline tracheostomy tube in place. RAD/Chest 1 View (Portable) IMPRESSION: No suspicious acute cardiopulmonary pathology. Electronically Signed: Dionicio Coburn MD at 13:03 EDT ,
--- NOTE | 2023-11-15 11:19 | EDS_ITS ---
HPI History of Present Illness Chief Complaint: Shortness of Breath Detail of Chief Complaint: Shortness of breath Informant: patient Narrative Narrative: Patient [facility] with [facility]ness [facility]. Nursing staff stated that she was in respiratory distress and they could get her pulse ox above 86%. They gave her breathing treatments. On arrival by EMS the patient had no complaints and states that these things happen sometimes and they resolve on their own. Patient had a new nurse apparently. Patient normally wears 5 L of nasal cannula O2. Patient does have history of COPD and has a tracheostomy. She denies chest pain. She denies recent illness. She is somewhat of a poor historian. [facility] Medical History Anxiety and depression Aspiration pneumonia due to gastric secretions Benign neoplasm of colon Carcinoma in situ of breast Chronic anemia COPD (chronic obstructive pulmonary disease) Daytime hypersomnia Diastolic CHF Essential (primary) hypertension GERD (gastroesophageal reflux disease) Hemorrhagic cerebrovascular accident (CVA) (02/09/17) History of alcohol abuse History of DVT of lower extremity (02/11/17) History of non-ST elevation myocardial infarction (NSTEMI) (02/03/17) Hyperlipidemia Insomnia Ischemic cerebrovascular accident (CVA) (02/06/17) Non-ischemic cardiomyopathy Non-rheumatic mitral regurgitation Noncompliance TIO (obstructive sleep apnea) Secondary pulmonary arterial hypertension Takotsubo cardiomyopathy (06/17/21) Home Medications cholecalciferol (vitamin D3) 25 mcg (1,000 unit) tablet (Vitamin D3) 25 mcg PO DAILY supplement 11/03/20 [History Last Taken Unknown] pantoprazole 40 mg tablet,delayed release (Protonix) 40 mg PO DAILY GERD 11/03/20 [History Last Taken 11/15/23] potassium chloride 20 mEq/15 mL oral liquid 40 meq (30 mL) G-tube BID #0 mL 07/25/22 [Rx Last Taken 11/15/23] aripiprazole 2 mg tablet (Abilify) 2 mg PO DAILY mental health 08/25/22 [History Last Taken 11/15/23] atorvastatin 40 mg tablet 40 mg PO QHS cholesterol 08/25/22 [History Last Taken 11/15/23] metoprolol succinate 25 mg tablet,extended release 24 hr 25 mg PO DAILY blood pressure 08/25/22 [History Last Taken 11/15/23] phenytoin 100 mg/4 mL oral suspension 100 mg (4 mL) PO Q8 30 days #360 mL 10/12 [Rx Last Taken Unknown] duloxetine 30 mg capsule,delayed release 30 mg PO DAILY mental health 11/11/22 [History Last Taken 11/15/23] furosemide 20 mg tablet 20 mg PO BIDCM diuretic 11/11/22 [History Last Taken 11/15/23] mirtazapine 7.5 mg tablet 7.5 mg PO QHS #30 tabs 11/11/22 [Rx Last Taken 11/14/23] albuterol sulfate 2.5 mg/3 mL (0.083 %) solution for nebulization 2.5 mg (3 mL) inhalation Q2H PRN PRN Dyspnea, wheezing #180 mL 06/30/23 [Rx Last Taken 11/15/23] albuterol sulfate 90 mcg/actuation aerosol inhaler 2 inh inhalation Q4H #8.5 grams 06/30/23 [Rx Last Taken 11/15/23] fluticasone fur. 100 mcg-umeclid 62.5 mcg-vilant 25 mcg inhalat.powder (Trelegy Ellipta) 1 inh inhalation DAILY 30 days #60 ea 06/30/23 [Rx Last Taken 11/15/23] nystatin 100,000 unit/mL oral suspension 5 ml mucous membrane TID #250 mL 06/30/23 [Rx Last Taken 11/15/23] aspirin 81 mg tablet,delayed release (Adult Aspirin Regimen) 81 mg PO DAILY 11/15/23 [History Last Taken 11/15/23] escitalopram oxalate 20 mg tablet 20 mg PO DAILY 11/15/23 [History Last Taken 11/15/23] hydroxyzine pamoate 25 mg capsule 25 mg PO TID 11/15/23 [History Last Taken 11/15/23] ipratropium 0.5 mg-albuterol 3 mg (2.5 mg base)/3 mL nebulization soln 3 ml inhalation Q6H 11/15/23 [History Last Taken 11/15/23] zolpidem 10 mg tablet 10 mg PO QHS PRN insomnia 11/15/23 [History Last Taken 11/14/23] Allergy/AdvReac Type Severity Reaction Status Date / Time tetanus and diphtheria Allergy Hives Verified 08/05/23 17:37 toxoids [tetanus & diphtheria toxoids] Family History Sister Cancer lung Father Cancer lung Mother Cancer lung Surgical History H/O: section History of bilateral cataract extraction History of cholecystectomy History of left heart catheterization (06/17/21) History of lumpectomy History of tracheostomy Hx of appendectomy S/P percutaneous endoscopic gastrostomy (PEG) tube placement Social History (Updated 09/26/23 @ 03:[address] Yazmin Buitrago MD) household members: spouse Smoking Status: Former smoker how long ago did patient quit smokin, 1pk/day second hand exposure: Yes alcohol intake: former substance use type: does not use what type of physical activity do you participate in: walking frequency: daily ROS ROS ED Review of Systems ROS Unobtainable: other Constitutional Constitutional ED: Reports lethargy; Denies chills, fever(s), sweats or weight loss Eyes Eyes: Denies blurry vision, change in vision or diplopia ENT ENT ED: Denies rhinorrhea or sore throat Cardiovascular Cardiovascular: Denies chest pain, orthopnea or racing heartbeat Respiratory/Chest Respiratory/Chest: Reports dyspnea; Denies cough, dyspnea on exertion, orthopnea or sputum Gastrointestinal Gastrointestinal: Denies abdominal pain, diarrhea, nausea or vomiting Genitourinary Genitourinary ED: Denies dysuria, hematuria or urinary frequency Musculoskeletal Musculoskeletal: Denies arthralgias, back pain, myalgias or neck pain Integumentary Denies abscess, Abrasions or rash Neurologic Neurologic: Denies headache(s) or weakness Psychiatric Psychiatric: Denies anxiety, depression or suicidal thoughts Endocrine Endocrinology: Denies polydipsia, polyphagia or polyuria Hematologic/Lymphatic Hematologic/Lymphatic: Denies easy bleeding, easy bruising or lymphadenopathy Allergic/Immunologic Allergic/Immunologic ED: Denies mouth swelling, tongue swelling or urticaria EXAM Physical Exam Const Vital Signs: 11/15/23 10:47 11/15/23 10:54 11/15/23 12:45 Temperature 97.2 F L Temperature Source Temporal Pulse Rate 90 85 Respiratory Rate 16 17 Respiratory Effort Normal Non-Labored Respiratory Depth Normal Respiratory Pattern Normal Blood Pressure 93/58 L 112/56 L Blood Pressure Mean 69 74 Pulse Ox 95 95 Oxygen Delivery Method Nasal Cannula Nasal Cannula Nasal Cannula Oxygen Flow Rate (L/min) 5 5 5 11/15/23 14:00 11/15/23 14:43 11/15/23 14:44 Temperature 97.8 F Temperature Source Pulse Rate 82 77 Respiratory Rate 16 14 Respiratory Effort Respiratory Depth Respiratory Pattern Blood Pressure 89/69 L 113/70 Blood Pressure Mean 75 84 Pulse Ox 96 97 Oxygen Delivery Method Nasal Cannula Nasal Cannula Oxygen Flow Rate (L/min) 5 5 Positive well nourished and well developed General Appearance ED: well developed and NAD HEENT Reports TM's clear and moist mucous membranes normocephalic and atraumatic; Negative for trauma or tenderness Tympanic Membrane ED: Yes TM's clear Eyes PERRL and EOMs intact bilaterally General Eye ED: Negative for pale conjunctiva or scleral icterus Neck no lymphadenopathy, supple and no JVD General: Negative for tenderness Chest Wall inspection of chest normal and palpation of chest normal Chest: Negative for tenderness Resp normal respiratory effort and clear to auscultation bilaterally Resp Narrative: Few rhonchi bilaterally with some expiratory wheezes. No accessory muscle use or retractions. Effort and Inspection: Negative for respiratory distress or pain with movement Auscultation: Negative for rhonchi, wheezes or diminished lung sounds Cardio regular rate, regular rhythm, S1 normal heart sound, S2 normal heart sound and no murmurs Peripheral Pulses: pulses 2+ throughout GI normal to inspection, nondistended, normoactive bowel sounds, soft to palpation, non-tender, non-distended and no masses Back/Spine no CVA tenderness and no thoracic nor lumbar tenderness Extremity normal to inspection General Extremety ED: Negative for edema General Extremity: Negative for edema Neuro oriented x3, CN's II-XII intact bilaterally, no sensory deficits noted and gait normal Sensorium / Orientation: awake, alert, oriented to person, oriented to place and oriented to time Motor Exam: strength 5/5 throughout and strength abnormal Psych mental status grossly normal Skin no rashes or lesions noted and no wounds MDM MDM MDM Narrative Medical decision making narrative: Patient presents to the ER for concern for respiratory failure with hypoxemia. [facility] she was noted to have CO2 above 45 on lab work. Had low pulse ox despite her 5 L and sent to ER for evaluation. She has history of COPD and chronic respiratory failure. Some confusion on arrival as she did not know the month and she did not know that she was in a penitentiary. IV line established. CBC with differential obtained showed white count 7.0 with hemoglobin of 8.8 and platelet count of 119. Chemistries unremarkable. CO2 was greater than 45. Troponin normal at 18. Lab work was delayed as she was a difficult IV stick. Blood gas obtained showed a pH 7.36 with a CO2 of 88, FiO2 was 85 on 5 L nasal cannula. Patient was started on BiPAP. She was given DuoNeb aerosol and st arted on Solu-Medrol. Case discussed with hospitalist to evaluate patient for admission for respiratory failure with hypercarbia/CO2 retention and confusion. Lab Data Attestation: I reviewed the patient's lab results. Labs: Laboratory Results - last 24 hr 11/15/23 12:55 WBC 7.0 RBC 3.08 L Hgb 8.8 L Hct 29.6 L MCV 96.1 MCH 28.6 MCHC 29.7 L RDW Std Deviation 47.6 H RDW Coeff of Deonte 13.5 Plt Count 119 L MPV 10.4 Immature Gran % (Auto) 0.400 Neut % (Auto) 64.3 Lymph % (Auto) 20.6 Kent % (Auto) 8.7 Eos % (Auto) 5.6 H Baso % (Auto) 0.4 Absolute Neuts (auto) 4.5 Absolute Lymphs (auto) 1.44 Nucleated RBC % 0 Sodium 138 Potassium 3.3 L Chloride 90 L Carbon Dioxide > 45.0 H* Anion Gap TNP BUN 15 Creatinine 0.70 Estim Creat Clear Calc 54.90 Est GFR (MDRD) Af Amer 108 Est GFR (MDRD) Non-Af 89 BUN/Creatinine Ratio 21.6 H Glucose 131 H Calcium 9.5 Troponin I High Sens 18 ABG Data ABG results: ABG 11/15/23 13:50 Specimen Type ART Sample Site R Brach pH 7.36 Bicarbonate Actual 48.9 H Total CO2 > 50 Base Excess 23 H O2 Saturation 95 O2 % 4.0 ABG pCO2 86.6 H* ABG pO2 85 Royal Test Positive O2 Delivery Device Cannula Vent Mode Not entered Crit Call To/Read Back Yes Blood Gas Notified Montez weaver rn Blood Gas Notified Time 13:52:35 Radiography Diagnostic Testing: Clinical Impression(s) from Imaging Studies Chest X-Ray 11/15/23 11:17 IMPRESSION: No suspicious acute cardiopulmonary pathology. Electronically Signed: Dionicio Coburn MD at 13:03 EDT , 1 view chest x-ray obtained showed no evidence of infiltrate or pneumothorax or acute disease process. Radiology in agreement. EKG Initial EKG: Attestation: I personally reviewed and interpreted this EKG as follows: Comments: Sinus rhythm with rate of 87 bpm with no acute ST segment changes Discharge Plan Triage Chief Complaint: Shortness of Breath ED Provider: Gabriela Kinney Dx/Rx/DC Orders Clinical Impression: CO2 retention, Respiratory failure, COPD exacerbation Prescriptions: No Action atorvastatin 40 mg tablet 40 mg PO QHS MDD 40 metoprolol succinate 25 mg tablet extended release 24 hr 25 mg PO DAILY MDD 25 aripiprazole [Abilify] 2 mg tablet 2 mg PO DAILY MDD 2mg albuterol sulfate 90 mcg/actuation HFA aerosol inhaler 2 inh inhalation Q4H Qty: 8.5 11RF albuterol sulfate 2.5 mg /3 mL (0.083 %) solution for nebulization 2.5 mg inhalation Q2H PRN PRN (Reason: Dyspnea, wheezing) Qty: 180 6RF Trelegy Ellipta 100-62.5-25 mcg blister with device 1 inh INHALATION DAILY 30 Days Qty: 60 6RF nystatin 100,000 unit/mL suspension 5 ml mucous membrane TID Qty: 250 1RF Rx Instructions: swish and swallow 5 cc three times per day for 10 days pantoprazole [Protonix] 40 mg Tablet,Delayed Release (Dr/Ec) 40 mg PO DAILY cholecalciferol (vitamin D3) [Vitamin D3] 25 mcg (1,000 unit) Tablet 25 mcg PO DAILY potassium chloride 20 mEq/15 mL Liquid 40 meq G-tube BID Qty: 0 0RF phenytoin 100 mg/4 mL Suspension 100 mg PO Q8 30 Days Qty: 360 2RF Patient Comments: PT NOT SURE IF SHE TAKES THIS OR NOT furosemide 20 mg tablet 20 mg PO BIDCM MDD 40 duloxetine 30 mg capsule,delayed release(DR/EC) 30 mg PO DAILY MDD 60 Patient Comments: PT UNAWARE IF MED IS 30MG OR 60MG mirtazapine 7.5 mg tablet 7.5 mg PO QHS Qty: 30 0RF aspirin [Adult Aspirin Regimen] 81 mg tablet,delayed release (DR/EC) 81 mg PO DAILY zolpidem 10 mg tablet 10 mg PO QHS PRN (Reason: insomnia) ipratropium-albuterol 0.5 mg-3 mg(2.5 mg base)/3 mL solution for nebulization 3 ml inhalation Q6H Rx Instructions: EVERY 6 HOURS WHILE AWAKE hydroxyzine pamoate 25 mg capsule 25 mg PO TID escitalopram oxalate 20 mg tablet 20 mg PO DAILY Primary Care Provider: Maryam Pineda Referrals: Maryam Pineda MD [Primary Care Provider] - Disposition Disposition: Acute Care Hospital [facility]
[2023-11-15 13:12] LABS: Absolute Lymphocyte Count 1.44 X10^3/uL (0.83-4.51); Absolute Neutrophil Count 4.5 X10^3/uL (2.0-7.7); Basophil# 0.03 X10^3/uL; Basophil% 0.4 % (0-1); Eosinophil# 0.39 X10^3/uL; Eosinophils% 5.6 % (0-5); Hematocrit 29.6 % (37-47); Hemoglobin 8.8 g/dL (12.0-15.0); Lymphocyte # 1.44 X10^3/ul (0.83-4.51); Lymphocyte % 20.6 % (19-41); Mean Corp Hgb Conc 29.7 g/dL (32-36); Mean Corpuscular Hgb 28.6 pg (27.0-32.0); Mean Corpuscular Volume 96.1 fL (81-99); Mean Platelet Vol. 10.4 fl (6.2-12.0); Monocyte# 0.61 X10^3/uL; Monocyte% 8.7 % (0-10); NRBC Flagged by Analyzer 0 % (0-5); Neutrophil % 64.3 % (47-70); Platelet Count 119 K/mm3 (150-450); RBC Distribution Width CV 13.5 % (11.6-14.6); RBC Distribution Width SD 47.6 fl (35.1-43.9); Red Blood Count 3.08 M/mm3 (4.2-5.4)
[2023-11-15 13:53] LABS: BUN 15 mg/dL (7-18); BUN/Creat Ratio 21.6 RATIO (10-20); Calcium,Total 9.5 mg/dL (8.5-10.1); Carbon Dioxide > 45.0 mmol/L (21.0-32.0); Chloride 90 mmol/L (98-107); EST Glomerular Filtration Rate 89 mL/min (>60); Est Glom Filt Rate - Afr Amer 108 mL/min (>60); Glucose 131 mg/dL (74-106); Potassium 3.3 mmol/L (3.5-5.1); Sodium Level 138 mmol/L (136-145); Troponin-I HS 18 pg/mL (3.0-54.0)
[2023-11-15 13:54] LABS: Allen Test Positive; Base Excess 23 mmol/L (-2 to +2); Bicarbonate 48.9 mmol/L (22-26); Blood Gas Specimen Type ART; Mode Not entered; O2 Delivery Device Cannula; PO2 85 mmHG (75-100); SITE R Brach; SO2 95 % (95-99); Time Given 13:52:35; Total Carbon Dioxide > 50 mmol/L; pCO2 86.6 mmHg (35-45); pH 7.36 (7.35-7.45)
--- NOTE | 2023-11-15 14:29 | HP.PCM.HOS_ITS ---
HPI - General General Date of Admission: 11/15/23 Date of Service: 11/15/23 Chief Complaint: Dyspnea, hypoxia. HPI Narrative The patient is a 68 y/o F w/ PMHx: Seizure disorder, COPD w/ Chronic Hypoxic Respiratory Failure (2L-5L NC) s/p tracheostomy (07/10/22), HFpEF w/ Hx Takotsubo cardiomyopathy, Hx CVA w/ Chronic dysphagia with aspiration history on altered diet w/ prior PEG tube (07/09/22) w/ also known 01/2022 Hemorrhagic CVA with transi tion to [facility] with surgical intervention, Seizure disorder, GERD, Chronic normocytic anemia, Chronc thrombocytopenia, HTN, HLD, TIO, Chronic Depression and Anxiety, History of Breast CA, Former EtOH Abuse who presents to the [facility] ED on 11/15/23 with history of increased oxygen requirements noted to be 86% on her normal oxygen supplementation at facility which ranges 2 L from previous records to reportedly 5 with increased work of breathing prompting eventual ED evaluation. At SNF they could not get her to increase her oxygenation despite aerosols and treatments. Workup in the ED included T97.2, heart rate 90, BP initially 93/50 with most recent repeat 112/56, respiratory rate 16, 95% on 5 L nasal cannula, CBC with WBC 7.0, hemoglobin 8.8, MCV 96.1, platelet 119 without marked shift, ABG with pH 7.36, bicarb 48.9, pCO2 86.6, pO2 85 performed on nasal cannula with most recent ABG review's with elevated pCO2 up to 137 previously, BMP with potassium 3.3, chloride 90, Comvax at greater than 45, glucose 131, troponin 18, BNP pending upon requested evaluation of patient, chest x-ray with no acute cardiopulmonary findings. In the ED patient ministered DuoNeb therapy and Solu-Medrol 125 mg IV x 1. [facility] Medical History Anxiety and depression Aspiration pneumonia due to gastric secretions Asthma Benign neoplasm of colon BiPAP (biphasic positive airway pressure) dependence Carcinoma in situ of breast Chronic anemia COPD (chronic obstructive pulmonary disease) Daytime hypersomnia Diastolic CHF Essential (primary) hypertension Former smoker GERD (gastroesophageal reflux disease) Hemorrhagic cerebrovascular accident (CVA) (02/09/17) History of alcohol abuse History of DVT of lower extremity (02/11/17) History of non-ST elevation myocardial infarction (NSTEMI) (02/03/17) Hyperlipidemia Hypothyroidism Insomnia Ischemic cerebrovascular accident (CVA) (02/06/17) Non-ischemic cardiomyopathy Non-rheumatic mitral regurgitation Noncompliance On home oxygen therapy TIO (obstructive sleep apnea) Secondary pulmonary arterial hypertension Seizures Stroke/cerebrovascular accident Takotsubo cardiomyopathy (06/17/21) Home Medications cholecalciferol (vitamin D3) 25 mcg (1,000 unit) tablet (Vitamin D3) 25 mcg PO DAILY supplement 11/03/20 [History Last Taken Unknown] pantoprazole 40 mg tablet,delayed release (Protonix) 40 mg PO DAILY GERD 11/03/20 [History Last Taken 11/15/23] potassium chloride 20 mEq/15 mL oral liquid 40 meq (30 mL) G-tube BID #0 mL 07/25/22 [Rx Last Taken 11/15/23] aripiprazole 2 mg tablet (Abilify) 2 mg PO DAILY mental health 08/25/22 [History Last Taken 11/15/23] atorvastatin 40 mg tablet 40 mg PO QHS cholesterol 08/25/22 [History Last Taken 11/15/23] metoprolol succinate 25 mg tablet,extended release 24 hr 25 mg PO DAILY blood pressure 08/25/22 [History Last Taken 11/15/23] phenytoin 100 mg/4 mL oral suspension 100 mg (4 mL) PO Q8 30 days #360 mL 10/12/22 [Rx Last Taken Unknown] duloxetine 30 mg capsule,delayed release 30 mg PO DAILY mental health 11/11/22 [History Last Taken 11/15/23] furosemide 20 mg tablet 20 mg PO BIDCM diuretic 11/11/22 [History Last Taken 11/15/23] mirtazapine 7.5 mg tablet 7.5 mg PO QHS #30 tabs 11/11/22 [Rx Last Taken 11/14/23] albuterol sulfate 2.5 mg/3 mL (0.083 %) solution for nebulization 2.5 mg (3 mL) inhalation Q2H PRN PRN Dyspnea, wheezing #180 mL 06/30/23 [Rx Last Taken 11/15/23] albuterol sulfate 90 mcg/actuation aerosol inhaler 2 inh inhalation Q4H #8.5 gr ams 06/30/23 [Rx Last Taken 11/15/23] fluticasone fur. 100 mcg-umeclid 62.5 mcg-vilant 25 mcg inhalat.powder (Trelegy Ellipta) 1 inh inhalation DAILY 30 days #60 ea 06/30/23 [Rx Last Taken 11/15/23] nystatin 100,000 unit/mL oral suspension 5 ml mucous membrane TID #250 mL 06/30/23 [Rx Last Taken 11/15/23] aspirin 81 mg tablet,delayed release (Adult Aspirin Regimen) 81 mg PO DAILY 11/15/23 [History Last Taken 11/15/23] escitalopram oxalate 20 mg tablet 20 mg PO DAILY 11/15/23 [History Last Taken 11/15/23] hydroxyzine pamoate 25 mg capsule 25 mg PO TID 11/15/23 [History Last Taken 11/15/23] ipratropium 0.5 mg-albuterol 3 mg (2.5 mg base)/3 mL nebulization soln 3 ml inhalation Q6H 11/15/23 [History Last Taken 11/15/23] zolpidem 10 mg tablet 10 mg PO QHS PRN insomnia 11/15/23 [History Last Taken 11/14/23] Allergy/AdvReac Type Severity Reaction Status Date / Time tetanus and diphtheria Allergy Hives Verified 08/05/23 17:37 toxoids [tetanus & diphtheria toxoids] Family History Sister Cancer lung Father Cancer lung Mother Cancer lung Surgical History H/O: section History of bilateral cataract extraction History of cholecystectomy History of left heart catheterization (06/17/21) History of lumpectomy History of tracheostomy Hx of appendectomy S/P emergency tracheotomy for assistance in breathing S/P percutaneous endoscopic gastrostomy (PEG) tube placement Social History household members: spouse Smoking Status: Former smoker how long ago did patient quit smokin, 1pk/day second hand exposure: Yes alcohol intake: former substance use type: does not use what type of physical activity do you participate in: walking frequency: daily ROS Review of Systems ROS Unobtainable: due to encephalopathy Vital Signs Vital Signs Vital Signs: 11/15/23 10:47 11/15/23 10:54 11/15/23 12:45 Temperature 97.2 F L Temperature Source Temporal Pulse Rate 90 85 Respiratory Rate 16 17 Respiratory Effort Normal Non-Labored Respiratory Depth Normal Respiratory Pattern Normal Blood Pressure 93/58 L 112/56 L Blood Pressure Mean 69 74 Pulse Ox 95 95 Oxygen Delivery Method Nasal Cannula Nasal Cannula Nasal Cannula Oxygen Flow Rate (L/min) 5 5 5 Weight Weight: 132 lb 9.6 oz Body Mass Index (BMI) 23.5 Physical Exam Narrative Physical Examination: General: Improving, awakens to stimuli, alert, oriented to self but still encephalopathic, seated upright in ED bed, fatigued but no evidence of any respiratory distress. Skin: Normal color, normal turgor, no icterus, no cyanosis except occasional staged ecchymoses, occasional abrasion, some mild irritation around the gastric tube insertion site. HEENT: AT/NC, EOMI, PERRLA, dry MM, no carotid bruits or JVD noted. Lungs: Significantly diminished, greater bases, mildly increased respiratory rate but no distress, occasional end expiratory wheeze, no rales or rhonchi. Heart: Regular rate and rhythm; no gallop, rub audible. Abdomen: Soft, G-tube in place with some irritation around the insertion site, NTTP, ND, hyperactive BS, no appreciated HSM. Extremities: No cyanosis, no clubbing, no significant peripheral edema. Neurological: Improving, awakens to stimuli, alert, oriented to self but still encephalopathic, seated upright in ED bed, fatigued but no evidence of any respiratory distress, cognitive function improving, still not baseline intact; pupils equally reactive to light and accommodation, cranial nerves grossly normal, moving all 4 extremities, no focal deficits, strength moderately to severely global decreased secondary to acute presentation. Psychiatric: Affect appears fatigued, no acute evidence of depressive or anxiety feelings but does have underlying history. Results Lab / Micro Data 11/15/23 12:55 11/15/23 12:55 Labs: Laboratory Results - last 24 hr 11/15/23 12:55: WBC 7.0, RBC 3.08 L, Hgb 8.8 L, Hct 29.6 L, MCV 96.1, MCH 28.6, MCHC 29.7 L, RDW Std Deviation 47.6 H, RDW Coeff of Deonte 13.5, Plt Count 119 L, MPV 10.4, Immature Gran % (Auto) 0.400, Neut % (Auto) 64.3, Lymph % (Auto) 20.6, Cole % (Auto) 8.7, Eos % (Auto) 5.6 H, Baso % (Auto) 0.4, Absolute Neuts (auto) 4.5, Absolute Lymphs (auto) 1.44, Nucleated RBC % 0, Sodium 138, Potassium 3.3 L , Chloride 90 L, Carbon Dioxide > 45.0 H*, Anion Gap TNP, BUN 15, Creatinine 0.70, Estim Creat Clear Calc 54.90, Est GFR (MDRD) Af Amer 108, Est GFR (MDRD) Non-Af 89, BUN/Creatinine Ratio 21.6 H, Glucose 131 H, Calcium 9.5, Troponin I High Sens 18 ABG Data ABG results: ABG 11/15/23 13:50 Specimen Type ART Sample Site R Brach pH 7.36 Bicarbonate Actual 48.9 H Total CO2 > 50 Base Excess 23 H O2 Saturation 95 O2 % 4.0 ABG pCO2 86.6 H* ABG pO2 85 Royal Test Positive O2 Delivery Device Cannula Vent Mode Not entered Crit Call To/Read Back Yes Blood Gas Notified Whom meg robledo Blood Gas Notified Time 13:52:35 Imaging Radiology Impression Chest X-Ray 11/15/23 11:17 IMPRESSION: No suspicious acute cardiopulmonary pathology. Electronically Signed: Dionicio Coburn MD at 13:03 EDT Reading Location ID and State: [facility] / [place] , Service support , Assessment & Plan Assessment/Plan (1) COPD exacerbation: PLAN: Plan The patient is a 68 y/o F w/ PMHx: Seizure disorder, COPD w/ Chronic Hypoxic Respiratory Failure (2L-5L NC) s/p tracheostomy (07/10/22), HFpEF w/ Hx Takotsubo cardiomyopathy, Hx CVA w/ Chronic dysphagia with aspiration history on altered diet w/ prior PEG tube (07/09/22) w/ also known 01/2022 Hemorrhagic CVA with transition to [facility] with surgical intervention, Seizure disorder, GERD, Chronic normocytic anemia, Chronc thrombocytopenia, HTN, HLD, TIO, Chronic Depression and Anxiety, History of Breast CA, Former EtOH Abuse who presents to the [facility] ED on 11/15/23 with history of increased oxygen requirements noted to be 86% on her normal oxygen supplementation at facility which ranges 2 L from previous records to reportedly 5 with increased work of breathing prompting eventual ED evaluati on. At SNF they could not get her to increase her oxygenation despite aerosols and treatments. #1. Acute Encephalopathy to Acute on Chronic Hypoxic Respiratory Failure secondary to Acute on Chronic COPD exacerbation: Will admit to [facility], maintain on oxygen with wean as tolerated to home oxygen supplementation, continue ATC duonebs, PRN albuterol, IV methylprednisolone, HOB, IS parameters, will obtain sputum Cx, respiratory viral panel, procalcitonin, will hold on immediately abx therapy but low threshold to add if appropriate. #2. Hypokalemia: Admission K+ 3.3, magnesium level requested, supplementation given, repeat level in AM. #3. Seizure disorder: We will continue patient home phenytoin regimen, clarifying if it is oral or via G-tube as patient has both access points but skilled facility paperwork note regular diet texture. #4. Hx Takotsubo cardiomyopathy, HFpEF: 10/09/2022 echocardiogram with LVEF 55%, apical hypokinesis, LA mildly enlarged, moderate MVI, will continue aspirin, statin, Lasix, metoprolol, not on KATHLEEN or/ARB. #5. Hypertension: Will continue patient home Lasix, metoprolol home regimen, PRN IV hydralazine. #6. Hyperlipidemia: We will continue patient home statin therapy. #7. Hx CVA, most recently Hx Hemorrhagic CVA: Patient with prior history of strokes including 01/2022 hemorrhagic stroke requiring transfer to [facility] and intervention at that time. Will continue patient home aspirin, statin, hypertensive regimen. #8. Hx VTE: Previous history DVT, not currently chronically anticoagulated especially given history of intracranial hemorrhage. #9. Chronic anemia, normocytic current admission: Admission hemoglobin 8.8, MCV 96.1, baseline hemoglobin primarily 9-11, will continue to trend CBC. #10. Chronic thrombocytopenia: Unclear exact etiology but does have history of previous alcohol abuse, admission platelets 119, from records since 11/24 natalya manzano is primarily been 1 20-1 50, will continue to trend CBC #11. Anxiety and Depression: We will continue patient home mirtazapine, duloxetine, aripiprazole home regimen. Need to clarify as patient for some reason is also listed as being on escitalopram as well which will be held until this is further clarified. Patient also is on hydroxyzine which will be continued but held for sedation. #12. RLS: Per current list not on regimen, previously had been on Requip. #13. Former tobacco use: Encourage continued tobacco cessation. #14. GERD: Continue PPI. #15. ITO: BIPAP q HS. #16. DVT prophylaxis: Lovenox. #17. CODE status: Patient HCPNAYELI is her daughter who is present and living will is currently in place. Full code per facility paperwork. Charges/Coding Visit Charges Inpatient E&M: 57397 Init Hosp L3
[2023-11-15] MEDS: MethylPREDNISolone 125 MG/2 ML Vial IV (14:46)
[2023-11-15 15:16] LABS: BNP,B-Type NATRIURETIC PEPTIDE 29.6 pg/mL (0-100)
[2023-11-15 18:00] LABS: Magnesium 1.7 mg/dL (1.6-2.6)
--- NOTE | 2023-11-15 18:35 | CPS ---
[1832] Pt. is refusing nasopharyngeal swab at this time (respiratory panel)
[2023-11-15] MEDS: oxyCODONE 5 MG Tablet PO (18:49)
[2023-11-15] MEDS: 0.9% Saline Lock 10 ML Syringe IV (21:57)
[2023-11-15] MEDS: Phenytoin Na 100 MG/4 ML UDC PO (21:58)
[2023-11-15] MEDS: Mirtazapine 15 MG Tablet 7.5 MG PO (21:58)
[2023-11-15] MEDS: Atorvastatin Calcium 40 MG Tablet PO (21:58)
[2023-11-15] MEDS: NYSTATIN 500,000 UNIT/5 ML UDC 500000 UNIT PO (21:58)
[2023-11-15] MEDS: Furosemide 20 MG Tablet PO (21:59)
[2023-11-15] MEDS: Potassium Chloride Oral Soln 20 MEQ/15 ML UDC 40 MEQ GT (21:59)
[2023-11-15] MEDS: hydrOXYzine PAM 25 MG Capsule PO (22:03)
[2023-11-15] MEDS: MELATONIN 3 MG TABLET PO (23:26)
[2023-11-15 23:31] LABS: M R Staph aureus DNA By PCR Negative (Negative); Probe Check PASS; Specimen Processing Control PASS
--- NOTE | 2023-11-15 23:33 | NURSING ---
PT removed bipap states she doesn't want to wear it right now, (just put on pt) reminded pt she was asking to wear it, pt refuses at this time, instructed pt to wear her O2 nc as her pox is in 70's, pt put her nasal cannula back on and is back to 94%. primary rn and cps aware
--- NOTE | 2023-11-15 23:35 | CPS ---
pt already took off bipap-
[2023-11-16] VITALS (11 sets, daily range): BP systolic 108–124; BP diastolic 52–66; PULSE 78–94; RESP 14–20; TEMP 36.4–36.7; O2SAT 94–98; BMI 23.1
[2023-11-16] MEDS: 0.9% Saline Lock 10 ML Syringe IV ×3 (06:33→20:31)
[2023-11-16] MEDS: hydrOXYzine PAM 25 MG Capsule PO ×3 (06:34→20:30)
[2023-11-16] MEDS: Phenytoin Na 100 MG/4 ML UDC PO ×3 (06:34→20:30)
[2023-11-16] MEDS: NYSTATIN 500,000 UNIT/5 ML UDC 500000 UNIT PO ×3 (06:34→20:30)
[2023-11-16 07:17] LABS: Absolute Lymphocyte Count 0.73 X10^3/uL (0.83-4.51); Absolute Neutrophil Count 2.3 X10^3/uL (2.0-7.7); Basophil# 0.01 X10^3/uL; Basophil% 0.3 % (0-1); Hematocrit 34.4 % (37-47); Hemoglobin 10.1 g/dL (12.0-15.0); Lymphocyte # 0.73 X10^3/ul (0.83-4.51); Lymphocyte % 22.7 % (19-41); Mean Corp Hgb Conc 29.4 g/dL (32-36); Mean Corpuscular Hgb 28.4 pg (27.0-32.0); Mean Corpuscular Volume 96.6 fL (81-99); Mean Platelet Vol. 10.5 fl (6.2-12.0); Monocyte# 0.15 X10^3/uL; Monocyte% 4.7 % (0-10); NRBC Flagged by Analyzer 0 % (0-5); Neutrophil # 2.31 X10^3/uL (2.7-7.7); Neutrophil % 71.7 % (47-70); Platelet Count 129 K/mm3 (150-450); RBC Distribution Width CV 13.5 % (11.6-14.6); RBC Distribution Width SD 48.1 fl (35.1-43.9); Red Blood Count 3.56 M/mm3 (4.2-5.4); White Blood Count 3.2 K/mm3 (4.4-11.0)
[2023-11-16] MEDS: Ipratropium/Albuterol Sulfate 3 ML AMPUL.NEB INHALATION ×4 (07:18→20:07)
[2023-11-16 08:02] LABS: ALB/GLOB Ratio 0.8 RATIO (0.9-2.4); AST(SGOT) 23 U/L (15-37); Alanine Aminotransfer ALT/SGPT 31 U/L (13-56); Albumin, Serum 3.4 g/dL (3.2-5.0); Alkaline Phosphatase 106 U/L (45-117); BUN 17 mg/dL (7-18); BUN/Creat Ratio 25.3 RATIO (10-20); Calcium,Total 9.6 mg/dL (8.5-10.1); Carbon Dioxide > 45.0 mmol/L (21.0-32.0); Chloride 93 mmol/L (98-107); Creatinine, Serum 0.67 mg/dL (0.55-1.02); EST Glomerular Filtration Rate 92 mL/min (>60); Est Glom Filt Rate - Afr Amer 112 mL/min (>60); Globulin 4.5 g/dL (2.2-4.2); Glucose 122 mg/dL (74-106); Potassium 3.9 mmol/L (3.5-5.1); Protein, Total 7.9 g/dL (6.4-8.2); Sodium Level 139 mmol/L (136-145)
[2023-11-16] MEDS: DULoxetine Hcl 30 MG Capsule PO (08:13)
[2023-11-16] MEDS: Aspirin E.C. 81 MG Tablet PO (08:14)
[2023-11-16] MEDS: Furosemide 20 MG Tablet PO ×2 (08:14→16:27)
[2023-11-16] MEDS: Metoprolol(XL)Succ 25 MG Tablet PO (08:14)
[2023-11-16] MEDS: Acetaminophen 325 MG Tablet 650 MG PO (08:14)
[2023-11-16] MEDS: Pantoprazole Sodium 40 MG Tablet PO (08:14)
[2023-11-16] MEDS: Potassium Chloride Oral Soln 20 MEQ/15 ML UDC 40 MEQ GT ×2 (08:15→20:32)
[2023-11-16] MEDS: ARIPiprazole 2 MG Tablet PO (08:16)
--- NOTE | 2023-11-16 08:26 | NURSING ---
Lab called with critical lab value of CO2 > 45. FINESSE Gonzalez aware.
[2023-11-16] MEDS: guaiFENesin 10 ML UDC (200MG/10ML) 20 ML PO (09:56)
--- NOTE | 2023-11-16 10:08 | PCM.PN.HOSP ---
Reason for Visit Reason for Visit: Diagnoses Chronic obstructive pulmonary disease with (acute) exacerbation (11/15/23) Objective Data Objective Data Vital Signs: Vital Signs Temp Pulse Resp BP Pulse Ox O2 Del Method O2 Flow Rate 97.8 F 81 14 114/56 L 95 Nasal Cannula 5 11/16/23 08:00 11/16/23 08:14 11/16/23 08:00 11/16/23 08:00 11/16/23 08:00 11/16/23 08:00 11/16/23 08:00 FiO2 30 11/15/23 23:27 Oxygen Flow Rate (L/min) 5 Oxygen Delivery Method Nasal Cannula Weight: 130 lb 4.691 oz Body Mass Index (BMI) 23.1 Intake & Output: Intake and Output for Last 24 Hours 11/14/23 11/15/23 11/16/23 23:59 23:59 23:59 Intake Total 300 / 300 80 / 80 Output Total 750 / 750 300 / 300 Balance -450 / -450 -220 / -220 Lab / Micro Data 11/16/23 06:00 11/16/23 06:00 Labs: Laboratory Results - last 24 hr 11/15/23 12:55: WBC 7.0, RBC 3.08 L, Hgb 8.8 L, Hct 29.6 L, MCV 96.1, MCH 28.6, MCHC 29.7 L, RDW Std Deviation 47.6 H, RDW Coeff of Deonte 13.5, Plt Count 119 L, MPV 10.4, Immature Gran % (Auto) 0.400, Neut % (Auto) 64.3, Lymph % (Auto) 20.6, [place] % (Auto) 8.7, Eos % (Auto) 5.6 H, Baso % (Auto) 0.4, Absolute Neuts (auto) 4.5, Absolute Lymphs (auto) 1.44, Nucleated RBC % 0, Sodium 138, Potassium 3.3 L, Chloride 90 L, Carbon Dioxide > 45.0 H*, Anion Gap TNP, BUN 15, Creatinine 0.70, Estim Creat Clear Calc 54.90, Est GFR (MDRD) Af Amer 108, Est GFR (MDRD) Non-Af 89, BUN/Creatinine Ratio 21.6 H, Glucose 131 H, Calcium 9.5, Troponin I High Sens 18, B-Natriuretic Peptide 29.6 11/15/23 16:42: Magnesium 1.7 11/15/23 21:00: MRSA (PCR) Negative 11/16/23 06:00: WBC 3.2 L, RBC 3.56 L, Hgb 10.1 L, Hct 34.4 L, MCV 96.6, MCH 28.4, MCHC 29.4 L, RDW Std Deviation 48.1 H, RDW Coeff of Deonte 13.5, Plt Count 129 L, MPV 10.5, Immature Gran % (Auto) 0.600, Neut % (Auto) 71.7 H, Lymph % (Auto) 22.7, [place] % (Auto) 4.7, Eos % (Auto) 0.0, Baso % (Auto) 0.3, Absolute Neuts (auto) 2.3, Absolute Lymphs (auto) 0.73 L, Nucleated RBC % 0, Sodium 139, Potassium 3.9, Chloride 93 L, Carbon Dioxide > 45.0 H*, Anion Gap TNP, BUN 17, Creatinine 0.67, Estim Creat Clear Calc 54.90, Est GFR (MDRD) Af Amer 112, Est GFR (MDRD) Non-Af 92, BUN/Creatinine Ratio 25.3 H, Glucose 122 H, Calcium 9.6, Total Bilirubin 0.40, AST 23, ALT 31, Alkaline Phosphatase 106, Total Protein 7.9, Albumin 3.4, Globulin 4.5 H, Albumin/Globulin Ratio 0.8 L Micro: Microbiology 11/15/23 22:26 Mucosa - Nasopharyngeal Respiratory Panel (PCR) - Final ABG Data ABG results: ABG 11/15/23 13:50 Specimen Type ART Sample Site R Brach pH 7.36 Bicarbonate Actual 48.9 H Total CO2 > 50 Base Excess 23 H O2 Saturation 95 O2 % 4.0 ABG pCO2 86.6 H* ABG pO2 85 Royal Test Positive O2 Delivery Device Cannula Vent Mode Not entered Crit Call To/Read Back Yes Blood Gas Notified Whom meg robledo Blood Gas Notified Time 13:52:35 Radiography Diagnostic Testing: Radiology Impression Chest X-Ray 11/15/23 11:17 IMPRESSION: No suspicious acute cardiopulmonary pathology. Electronically Signed: Dionicio Coburn MD at 13:03 EDT , Physical Exam Narrative Seen and examined. Patient admitted with COPD exacerbation, shortness of breath, acute on chronic respiratory acidosis, pCO2 86.6. Patient has tracheostomy and PEG tube Physical exam General: Alert, Oriented x3, Cooperative HEENT: Atraumatic, PERRLA, EOMI, Normocephalic Oral: No Gingival or Mucosal Lesions/ Ulcerations Neck: Tracheostomy. Supple, No JVD, Negative Carotid Bruits Chest wall/Lungs: Air entry severely diminished in both lungs. Expiratory rhonchi. Cardiovascular: Regular rate, Regular Rhythm, Normal S1, Normal S2, No M/G/R Abdomen: PEG tube. Bowel Sounds Present, Soft, Non Tender, Non-Distended : No dysuria. No renal angle tenderness. No suprapubic tenderness. Extremities: No edema, Capillary Refill Less than 3 Seconds Skin: No rashes, No breakdown Musculoskeletal: No Tenderness to Palpation of Joints or Extremities Neurological: Cranial nerves II-XII grossly intact, DTR 2+/4. No acute focal neurological deficit. Psych/Mental Status: Normal Affect, Appropriate. Assessment & Plan Assessment/Plan (1) COPD exacerbation: PLAN: Plan The patient is a 68 y/o F [facility] ED on 11/15/23 with history of increased oxygen requirements noted to be 86% on her normal oxygen supplementation at facility which ranges 2 L from previous records to reportedly 5 with increased work of breathing prompting eventual ED evaluation. At SNF they could not get her to increase her oxygenation despite aerosols and treatments. #1. Acute Encephalopathy to Acute on Chronic Hypoxic Respiratory Failure secondary to Acute on Chronic COPD exacerbation: Patient is admitted on MedSurg floor. Patient is being managed on scheduled bronchodilator, IV Solu-Medrol, Mucinex, incentive spirometry and Pep. Respiratory panel negative. Procalcitonin normal. Serum magnesium normal. Chronic CO2 retainer with bicarb more than 45. #2. Hypokalemia: Admission K+ 3.3, repeat normal 3.9. #3. Seizure disorder: continue patient home phenytoin regimen, #4. Hx Takotsubo cardiomyopathy, HFpEF: 10/09/2022 echocardiogram with LVEF 55%, apical hypokinesis, LA mildly enlarged, moderate MVI, will continue aspirin, statin, Lasix, metoprolol, not on KATHLEEN or/ARB. #5. Hypertension: Will continue patient home Lasix, metoprolol home regimen, PRN IV hydralazine. #6. Hyperlipidemia: We will continue patient home statin therapy. #7. Hx CVA, most recently Hx Hemorrhagic CVA: Patient with prior history of strokes including 01/2022 hemorrhagic stroke requiring transfer to [facility] and intervention at that time. Will continue patient home aspirin, statin, hypertensive regimen. #8. Hx VTE: Previous history DVT, not currently chronically anticoagulated especially given history of intracranial hemorrhage. #9. Chronic anemia, normocytic current admission: Admission hemoglobin 8.8, MCV 96.1, baseline hemoglobin primarily 9-11, will continue to trend CBC. #10. Chronic thrombocytopenia: Unclear exact etiology but does have history of previous alcohol abuse, admission platelets 119, from records since 11/24 baseline is primarily been 1 20-1 50, will continue to trend CBC #11. Anxiety and Depression: We will continue patient home mirtazapine, duloxetine, aripiprazole home regimen. Need to clarify as patient for some reason is also listed as being on escitalopram as well which will be held until this is further clarified. Patient also is on hydroxyzine which will be continued but held for sedation. #12. RLS: Per current list not on regimen, previously had been on Requip. #13. Former tobacco use: Encourage continued tobacco cessation. #14. GERD: Continue PPI. #15. TIO: BIPAP q HS. #16. DVT prophylaxis: Lovenox. #17. CODE status: Patient STACEY is her daughter who is present and living will is currently in place. Full code per facility paperwork. Charges/Coding Visit Charges Inpatient E&M: 25208 Subs Hosp L2
--- NOTE | 2023-11-16 10:08 | CASEMGMT ---
Addendum entered by Marya Barron 11/16/23 12:16: SW attempted to call pt dtr; again call went straight to with no ability to leave a message. RUI Judd Original Note: Social Work- SW met with pt to discuss pt's plans at d/c. Pt displayed flight of ideas and erratic thought patterns. Pt asked SW if there was a yellow building out her door. PT states that she lives with spouse, Oscar, who takes really great care of her. Pt reports that her daughter, Ameena, lives down the road and also assists with care. Pt reports that her brother, Antelmo Everett, lives on [facility] and also assists with pt care. Pt states that she did not come from SNF and wants to return home. SW confirmed contact information for her daughter and spouse, listed on face sheet. Pt states daughter Ameena's number is [phone]. Pt states spouse's number is correct. SW attempted to call spouse, Oscar. The number listed is disconnected. SW attempted to call daughter, Ameena. The number provided went straight to voicemail without ringing and the mailbox was full. IBETH will continue to attempt contact. RUI Judd
--- NOTE | 2023-11-16 10:33 | CASEMGMT ---
Discharge Planning Updates sent to [facility] via [employer]. Carmen Butterfield DC Planning Asst.
--- NOTE | 2023-11-16 13:36 | PRO.PCM_ITS ---
Procedure Report Date of Procedure: 11/16/23 Assessment & Plan Assessment/Plan (1) Poor venous access: PLAN: PROCEDURE: IV Placement under Ultrasound Guidance PERFORMED BY: EMELY Noel INDICATION: IV access required. Poor venous access. TECHNIQUE: Patient identity was verified with two patient identifiers. Hands were sanitized. The patient was positioned supine with right arm at 90 degrees. The patient's upper arm vasculature was assessed using ultrasound, and the right basilic vein was externally marked. The vein was suitable for insertion of a 20 gauge 10 cm extended dwell catheter. The sterile kit was opened with additional supplies dropped in. Mask and prep gloves were donned. The underdrape was placed under the patient's arm. The site was prepped with chlorhexidine, and tourniquet was loosely applied. Prep gloves were discarded, and hands were sa nitized. Sterile gloves were donned, and the patient's arm was draped. The sterile kit was assembled with needless connector and loop flushed with sterile normal saline. The right basilic vein was then accessed using dynamic ultrasound guidance, and the catheter advanced easily. 1 attempt was required. The tourniquet was released. The flushed loop and needless connector were attached. Blood return was easily aspirated. 10 ml sterile normal saline was delivered via pulsatile flush, and the loop was clamped prior to removal of the syringe to prevent back flow. Skin was prepped and followed by application of a stat-lock and a clear dressing was applied to secure the IV. The patient tolerated the procedure well. Procedures Radiology Radiology Access Procedures: MIDL
[2023-11-16 14:06] LABS: Procalcitonin < 0.04 ng/mL (0.00-0.09)
[2023-11-16] MEDS: Atorvastatin Calcium 40 MG Tablet PO (20:30)
[2023-11-16] MEDS: Mirtazapine 15 MG Tablet 7.5 MG PO (20:30)
[2023-11-16] MEDS: Zolpidem Tartrate 5 MG Tablet PO (20:30)
[2023-11-17] VITALS (13 sets, daily range): BP systolic 98–126; BP diastolic 36–68; PULSE 69–86; RESP 16–23; TEMP 36.6; O2SAT 88–96; BMI 22.8
--- NOTE | 2023-11-17 00:58 | NURSING ---
pt removed her bipap. put pt on 4L NC.
[2023-11-17] MEDS: hydrOXYzine PAM 25 MG Capsule PO ×3 (05:58→21:25)
[2023-11-17] MEDS: Phenytoin Na 100 MG/4 ML UDC PO ×3 (05:58→21:24)
[2023-11-17] MEDS: NYSTATIN 500,000 UNIT/5 ML UDC 500000 UNIT PO ×3 (05:58→21:24)
[2023-11-17] MEDS: 0.9% Saline Lock 10 ML Syringe IV ×3 (05:59→21:26)
[2023-11-17] MEDS: Ipratropium/Albuterol Sulfate 3 ML AMPUL.NEB INHALATION ×3 (07:03→14:38)
[2023-11-17 07:43] LABS: Absolute Lymphocyte Count 2.07 X10^3/uL (0.83-4.51); Basophil# 0.01 X10^3/uL; Basophil% 0.1 % (0-1); Hematocrit 29.9 % (37-47); Hemoglobin 9.1 g/dL (12.0-15.0); Lymphocyte # 2.07 X10^3/ul (0.83-4.51); Lymphocyte % 26.1 % (19-41); Mean Corp Hgb Conc 30.4 g/dL (32-36); Mean Corpuscular Hgb 28.7 pg (27.0-32.0); Mean Corpuscular Volume 94.3 fL (81-99); Mean Platelet Vol. 10.3 fl (6.2-12.0); Monocyte# 0.85 X10^3/uL; Monocyte% 10.7 % (0-10); NRBC Flagged by Analyzer 0 % (0-5); Neutrophil # 4.99 X10^3/uL (2.7-7.7); Neutrophil % 62.8 % (47-70); Platelet Count 147 K/mm3 (150-450); RBC Distribution Width CV 13.9 % (11.6-14.6); RBC Distribution Width SD 47.5 fl (35.1-43.9); Red Blood Count 3.17 M/mm3 (4.2-5.4); White Blood Count 7.9 K/mm3 (4.4-11.0)
[2023-11-17 08:19] LABS: Anion Gap 3 (5-15); BUN 20 mg/dL (7-18); Calcium,Total 9.5 mg/dL (8.5-10.1); Chloride 98 mmol/L (98-107); Creatinine, Serum 0.69 mg/dL (0.55-1.02); EST Glomerular Filtration Rate 90 mL/min (>60); Est Glom Filt Rate - Afr Amer 109 mL/min (>60); Glucose 105 mg/dL (74-106); Potassium 3.8 mmol/L (3.5-5.1); Sodium Level 139 mmol/L (136-145)
--- NOTE | 2023-11-17 09:18 | CASEMGMT ---
Social Work- Sw called pt daughter; call went straight to voicemail without ringing and voicemail was full. IBETH called [facility] who provided a contact number. IBETH was able to reach pt dtr and verified that she wishes for pt to return to [facility] for additional rehab. RUI Judd
[2023-11-17] MEDS: Pantoprazole Sodium 40 MG Tablet PO (09:34)
[2023-11-17] MEDS: Aspirin E.C. 81 MG Tablet PO (09:34)
[2023-11-17] MEDS: Furosemide 20 MG Tablet PO ×2 (09:34→17:49)
[2023-11-17] MEDS: DULoxetine Hcl 30 MG Capsule PO (09:34)
[2023-11-17] MEDS: ARIPiprazole 2 MG Tablet PO (09:35)
[2023-11-17] MEDS: Potassium Chloride Oral Soln 20 MEQ/15 ML UDC 40 MEQ GT ×2 (09:36→21:24)
--- NOTE | 2023-11-17 11:34 | CASEMGMT ---
Social Work- SW sent message via [employer] advising [facility] of ability to start precert d/t possible d/c tomorrow. RUI Judd
--- NOTE | 2023-11-17 14:54 | PCM.PN.HOSP ---
Reason for Visit Reason for Visit: Diagnoses Other specified disorders of veins (11/15/23) Chronic obstructive pulmonary disease with (acute) exacerbation (11/15/23) Objective Data Objective Data Vital Signs: Vital Signs Temp Pulse Resp BP Pulse Ox O2 Del Method O2 Flow Rate 97.8 F 81 16 98/41 L 95 Nasal Cannula 2 11/17/23 09:31 11/17/23 14:38 11/17/23 14:38 11/17/23 14:26 11/17/23 11:37 11/17/23 09:31 11/17/23 11:37 FiO2 30 11/17/23 00:10 Oxygen Flow Rate (L/min) 2 Oxygen Delivery Method Nasal Cannula Weight: 128 lb 11.999 oz Body Mass Index (BMI) 22.8 Intake & Output: Intake and Output for Last 24 Hours 11/15/23 11/16/23 11/17/23 23:59 23:59 23:59 Intake Total 300 / 300 80 / 80 300 / 300 Output Total 750 / 750 700 / 700 400 / 400 Balance -450 / -450 -620 / -620 -100 / -100 Lab / Micro Data 11/17/23 06:24 11/17/23 06:24 Labs: Laboratory Results - last 24 hr 11/17/23 06:24: WBC 7.9, RBC 3.17 L, Hgb 9.1 L, Hct 29.9 L, MCV 94.3, MCH 28.7, MCHC 30.4 L, RDW Std Deviation 47.5 H, RDW Coeff of Deonte 13.9, Plt Count 147 L, MPV 10.3, Immature Gran % (Auto) 0.300, Neut % (Auto) 62.8, Lymph % (Auto) 26.1, [place] % (Auto) 10.7 H, Eos % (Auto) 0.0, Baso % (Auto) 0.1, Absolute Neuts (auto) 5.0, Absolute Lymphs (auto) 2.07, Nucleated RBC % 0, Sodium 139, Potassium 3.8, Chloride 98, Carbon Dioxide 38.0 H, Anion Gap 3 L, BUN 20 H, Creatinine 0.69, Estim Creat Clear Calc 54.90, Est GFR (MDRD) Af Amer 109, Est GFR (MDRD) Non-Af 90, BUN/Creatinine Ratio 29.0 H, Glucose 105, Calcium 9.5 Micro: Microbiology 11/15/23 22:26 Mucosa - Nasopharyngeal Respiratory Panel (PCR) - Final Physical Exam Narrative Seen and examined. Patient is still short of breath. Oxygen requirement goes to 5 L on ambulation. Dyspnea on exertion. Patient admitted with COPD exacerbation, shortness of breath, acute on chronic respiratory acidosis, pCO2 86.6. Patient has tracheostomy and PEG tube Physical exam General: Alert, Oriented x3, Cooperative HEENT: Atraumatic, PERRLA, EOMI, Normocephalic Oral: No Gingival or Mucosal Lesions/ Ulcerations Neck: Tracheostomy. Supple, No JVD, Negative Carotid Bruits Chest wall/Lungs: Air entry severely diminished in both lungs. Expiratory rhonchi. Cardiovascular: Regular rate, Regular Rhythm, Normal S1, Normal S2, No M/G/R Abdomen: PEG tube. Bowel Sounds Present, Soft, Non Tender, Non-Distended : No dysuria. No renal angle tenderness. No suprapubic tenderness. Extremities: No edema, Capillary Refill Less than 3 Seconds Skin: No rashes, No breakdown Musculoskeletal: No Tenderness to Palpation of Joints or Extremities Neurological: Cranial nerves II-XII grossly intact, DTR 2+/4. No acute focal neurological deficit. Psych/Mental Status: Normal Affect, Appropriate. Assessment & Plan Assessment/Plan (1) COPD exacerbation: PLAN: Plan The patient is a 68 y/o F [facility] ED on 11/15/23 with history of increased oxygen requirements noted to be 86% on her normal oxygen supplementation at facility which ranges 2 L from previous records to reportedly 5 with increased work of breathing prompting eventual ED evaluation. At SNF they could not get her to increase her oxygenation despite aerosols and treatments. #1. Acute Encephalopathy to Acute on Chronic Hypoxic Respiratory Failure secondary to Acute on Chronic COPD exacerbation: Patient is admitted on MedSurg floor. Patient is being managed on scheduled bronchodilator, IV Solu-Medrol, Mucinex, incentive spirometry and Pep. Respiratory panel negative. Procalcitonin normal. Serum magnesium normal. Chronic CO2 retainer with bicarb more than 45. 11/16: Patient is still symptomatically short of breath on exertion. Oxygen requirement was high 5 L. 1 more day of hospital stay. #2. Hypokalemia: Admission K+ 3.3, repeat normal 3.9. 11/16: Hypokalemia resolved. #3. Seizure disorder: continue patient home phenytoin regimen, #4. Hx Takotsubo cardiomyopathy, HFpEF: 10/09/2022 echocardiogram with LVEF 55%, apical hypokinesis, LA mildly enlarged, moderate MVI, will continue aspirin, statin, Lasix, metoprolol, not on KATHLEEN or/ARB. #5. Hypertension: Will continue patient home Lasix, metoprolol home regimen, PRN IV hydralazine. #6. Hyperlipidemia: We will continue patient home statin therapy. #7. Hx CVA, most recently Hx Hemorrhagic CVA: Patient with prior history of strokes including 01/2022 hemorrhagic stroke requiring transfer to [facility] and intervention at that time. Will continue patient home aspirin, statin, hypertensive regimen. #8. Hx VTE: Previous history DVT, not currently chronically anticoagulated especially given history of intracranial hemorrhage. #9. Chronic anemia, normocytic current admission: Admission hemoglobin 8.8, MCV 96.1, baseline hemoglobin primarily 9-11, will continue to trend CBC. 11/16: Hemoglobin in acceptable range 9.1/29.9%. #10. Chronic thrombocytopenia: Unclear exact etiology but does have history of previous alcohol abuse, admission platelets 119, from records since 11/24 baseline is primarily been 1 20-1 50, will continue to trend CBC #11. Anxiety and Depression: We will continue patient home mirtazapine, duloxetine, aripiprazole home regimen. Need to clarify as patient for some reason is also listed as being on escitalopram as well which will be held until this is further clarified. Patient also is on hydroxyzine which will be continued but held for sedation. #12. RLS: Per current list not on regimen, previously had been on Requip. #13. Former tobacco use: Encourage continued tobacco cessation. #14. GERD: Continue PPI. #15. TIO: BIPAP q HS. #16. DVT prophylaxis: Lovenox. #17. CODE status: Patient STACEY is her daughter who is present and living will is currently in place. Full code per facility paperwork. Charges/Coding Visit Charges Inpatient E&M: 05803 Subs Hosp L2
[2023-11-17] MEDS: guaiFENesin/D-Methorphan TAB.SR.12H 2 TABLET PO (17:49)
[2023-11-17] MEDS: Metoprolol(XL)Succ 25 MG Tablet 12.5 MG PO (17:50)
[2023-11-17] MEDS: Zolpidem Tartrate 5 MG Tablet PO (21:23)
[2023-11-17] MEDS: Atorvastatin Calcium 40 MG Tablet PO (21:25)
[2023-11-17] MEDS: Mirtazapine 15 MG Tablet 7.5 MG PO (21:25)
[2023-11-18] VITALS (9 sets, daily range): BP systolic 106–115; BP diastolic 41–65; PULSE 60–78; RESP 16–24; TEMP 36.4–36.6; O2SAT 95–99
--- NOTE | 2023-11-18 00:24 | CPS ---
Tidal volume increased to 450, and PAP pressures adjusted to 24/12 to achieve better return tidal volumes.
--- NOTE | 2023-11-18 03:34 | NURSING ---
SPINE NURSE went to pts room to round, states pt messing with her midline and managed to pull the needle half way out. This RN went and checked pt, attempted to restart IV with rn charge but pt is very hard stick and was not able to reinsert IV. Made hospitalist aware, pt pulled her midline and that pt is getting IV solu-medrol through her line.
--- NOTE | 2023-11-18 03:40 | PCM.HOSP.N ---
Hospitalist Note Midline pulled out accidentally. Difficult IV access. Will discontinue the Solu-Medrol and change her over to prednisone.
[2023-11-18] MEDS: NYSTATIN 500,000 UNIT/5 ML UDC 500000 UNIT PO (05:17)
[2023-11-18] MEDS: Phenytoin Na 100 MG/4 ML UDC PO (05:17)
[2023-11-18] MEDS: hydrOXYzine PAM 25 MG Capsule PO (05:17)
[2023-11-18] MEDS: 0.9% Saline Lock 10 ML Syringe IV (05:18)
[2023-11-18] MEDS: Ipratropium/Albuterol Sulfate 3 ML AMPUL.NEB INHALATION ×2 (07:15→13:22)
[2023-11-18 07:57] LABS: Absolute Neutrophil Count 5.7 X10^3/uL (2.0-7.7); Basophil# 0.03 X10^3/uL; Basophil% 0.3 % (0-1); Hematocrit 34.9 % (37-47); Hemoglobin 10.2 g/dL (12.0-15.0); Lymphocyte % 24.9 % (19-41); Mean Corp Hgb Conc 29.2 g/dL (32-36); Mean Corpuscular Hgb 27.9 pg (27.0-32.0); Mean Corpuscular Volume 95.4 fL (81-99); Mean Platelet Vol. 10.4 fl (6.2-12.0); Monocyte# 0.87 X10^3/uL; Monocyte% 9.8 % (0-10); NRBC Flagged by Analyzer 0 % (0-5); Neutrophil % 64.4 % (47-70); Platelet Count 161 K/mm3 (150-450); RBC Distribution Width CV 14.4 % (11.6-14.6); RBC Distribution Width SD 49.7 fl (35.1-43.9); Red Blood Count 3.66 M/mm3 (4.2-5.4); White Blood Count 8.9 K/mm3 (4.4-11.0)
--- NOTE | 2023-11-18 08:08 | TREXTCAR_ITS ---
Diet Diet Order/Speech Therapy: 11/15/23 20:08 Diet: Cardiac - Heart Healthy Food consistency:: Regular Liquid Consistency:: Regular/Thin Is pt able to select menu?: No Problem/Diagnosis (1) COPD exacerbation: Status: Chronic Code(s): J44.1 - Chronic obstructive pulmonary disease with (acute) exacerbation Plan The patient is a 68 y/o F [facility] ED on 11/15/23 with history of increased oxygen requirements noted to be 86% on her normal oxygen supplementation at facility which ranges 2 L from previous records to reportedly 5 with increased work of breathing prompting eventual ED evaluation. At SNF they could not get her to increase her oxygenation despite aerosols and treatments. #1. Acute Encephalopathy to Acute on Chronic Hypoxic Respiratory Failure secondary to Acute on Chronic COPD exacerbation: Patient is admitted on MedSurg floor. Patient is being managed on scheduled bronchodilator, IV Solu-Medrol, Mucinex, incentive spirometry and Pep. Respiratory panel negative. Procalcitonin normal. Serum magnesium normal. Chronic CO2 retainer with bicarb more than 45. 11/16: Patient is still symptomatically short of breath on exertion. Oxygen requirement was high 5 L. 1 more day of hospital stay. 11/17: Oxygen requirement is 2 L at rest. Home qualification oxygen ordered. #2. Hypokalemia: Admission K+ 3.3, repeat normal 3.9. 11/16: Hypokalemia resolved. #3. Seizure disorder: continue patient home phenytoin regimen, #4. Hx Takotsubo cardiomyopathy, HFpEF: 10/09/2022 echocardiogram with LVEF 55%, apical hypokinesis, LA mildly enlarged, moderate MVI, will continue aspirin, statin, Lasix, metoprolol, not on KATHLEEN or/ARB. #5. Hypertension: Will continue patient home Lasix, metoprolol home regimen, PRN IV hydralazine. #6. Hyperlipidemia: We will continue patient home statin therapy. #7. Hx CVA, most recently Hx Hemorrhagic CVA: Patient with prior history of strokes including 01/2022 hemorrhagic stroke requiring transfer to [facility] and intervention at that time. Will continue patient home aspirin, statin, hypertensive regimen. #8. Hx VTE: Previous history DVT, not currently chronically anticoagulated especially given history of intracranial hemorrhage. #9. Chronic anemia, normocytic current admission: Admission hemoglobin 8.8, MCV 96.1, baseline hemoglobin primarily 9-11, will continue to trend CBC. 11/16: Hemoglobin in acceptable range 9.1/29.9%. #10. Chronic thrombocytopenia: Unclear exact etiology but does have history of previous alcohol abuse, admission platelets 119, from records since 11/24 baseline is primarily been 1 20-1 50, will continue to trend CBC #11. Anxiety and Depression: We will continue patient home mirtazapine, duloxetine, aripiprazole home regimen. Need to clarify as patient for some reason is also listed as being on escitalopram as well which will be held until this is further clarified. Patient also is on hydroxyzine which will be continued but held for sedation. #12. RLS: Per current list not on regimen, previously had been on Requip. #13. Former tobacco use: Encourage continued tobacco cessation. #14. GERD: Continue PPI. #15. TIO: BIPAP q HS. #16. DVT prophylaxis: Lovenox. #17. CODE status: Patient STACEY is her daughter who is present and living will is currently in place. Full code per facility paperwork. Allergies/Procedures Done in Hospital Allergies tetanus and diphtheria toxoids (tetanus & diphtheria toxoids) Allergy (Verified 08/05/23 17:37) Hives Type of Care/Length of Stay Estimated LOS: Convalescent Care Less Than 30 days Type of Care Needed: Intermediate Rehab Potential: Good Prognosis: Good Additional Orders/Day of Discharge Day of Discharge: 11/18/23 Dietary and Speech Recommendations Dietitian Recommendations/Changes: Continue Cardiac diet to manage medical condition.s Discharge Plan Admission Admit Date/Time: 11/15/23 14:52 Attending Provider: Tex Agee Primary Care Provider: Maryam Pineda Consulting Providers: Yazmin Buitrago Discharge Orders/Prescriptions Prescriptions: New acetaminophen 325 mg Tablet 650 mg PO Q4H PRN PRN (Reason: Fever, pain -04/13) Qty: 0 0RF sennosides-docusate sodium [Stool Softener-Stimulant Laxat] 8.6-50 mg Tablet 2 tab PO BID PRN PRN (Reason: Constipation) Qty: 0 0RF Mucinex DM 30-600 mg Tablet Extended Release 12 Hr 2 tab PO BID 7 Days Qty: 28 0RF prednisone 20 mg tablet 40 mg PO DAILY 5 Days Qty: 10 0RF Continued atorvastatin 40 mg tablet 40 mg PO QHS MDD 40 metoprolol succinate 25 mg tablet extended release 24 hr 25 mg PO DAILY MDD 25 aripiprazole [Abilify] 2 mg tablet 2 mg PO DAILY MDD 2mg albuterol sulfate 90 mcg/actuation HFA aerosol inhaler 2 inh inhalation Q4H Qty: 8.5 11RF albuterol sulfate 2.5 mg /3 mL (0.083 %) solution for nebulization 2.5 mg inhalation Q2H PRN PRN (Reason: Dyspnea, wheezing) Qty: 180 6RF Trelegy Ellipta 100-62.5-25 mcg blister with device 1 inh INHALATION DAILY 30 Days Qty: 60 6RF nystatin 100,000 unit/mL suspension 5 ml mucous membrane TID Qty: 250 1RF Rx Instructions: swish and swallow 5 cc three times per day for 10 days pantoprazole [Protonix] 40 mg Tablet,Delayed Release (Dr/Ec) 40 mg PO DAILY cholecalciferol (vitamin D3) [Vitamin D3] 25 mcg (1,000 unit) Tablet 25 mcg PO DAILY potassium chloride 20 mEq/15 mL Liquid 40 meq G-tube BID Qty: 0 0RF phenytoin 100 mg/4 mL Suspension 100 mg PO Q8 30 Days Qty: 360 2RF Patient Comments: PT NOT SURE IF SHE TAKES THIS OR NOT furosemide 20 mg tablet 20 mg PO BIDCM MDD 40 duloxetine 30 mg capsule,delayed release(DR/EC) 30 mg PO DAILY MDD 60 Patient Comments: PT UNAWARE IF MED IS 30MG OR 60MG mirtazapine 7.5 mg tablet 7.5 mg PO QHS Qty: 30 0RF aspirin [Adult Aspirin Regimen] 81 mg tablet,delayed release (DR/EC) 81 mg PO DAILY zolpidem 10 mg tablet 10 mg PO QHS PRN (Reason: insomnia) ipratropium-albuterol 0.5 mg-3 mg(2.5 mg base)/3 mL solution for nebulization 3 ml inhalation Q6H Rx Instructions: EVERY 6 HOURS WHILE AWAKE hydroxyzine pamoate 25 mg capsule 25 mg PO TID escitalopram oxalate 20 mg tablet 20 mg PO DAILY Referrals / Follow Up: Maryam Pienda MD [Primary Care Provider] - Ema Stevens NP, [employer]-C [Med Staff - [facility]] - Within 2 Weeks (COPD exacerbation) Disposition Disposition (needs filled in before D/C Order can be placed): NonSkilled NH/Intermed Care
[2023-11-18 08:18] LABS: Anion Gap 2 (5-15); BUN 21 mg/dL (7-18); BUN/Creat Ratio 28.3 RATIO (10-20); Calcium,Total 9.5 mg/dL (8.5-10.1); Chloride 103 mmol/L (98-107); Creatinine, Serum 0.74 mg/dL (0.55-1.02); EST Glomerular Filtration Rate 83 mL/min (>60); Est Glom Filt Rate - Afr Amer 100 mL/min (>60); Glucose 124 mg/dL (74-106); Potassium 3.6 mmol/L (3.5-5.1); Sodium Level 141 mmol/L (136-145)
--- NOTE | 2023-11-18 08:22 | PCM.DC.SUM ---
Providers Date of Admission: 11/15/23 Date of Discharge: 11/18/23 Primary Care Physician: Dr. Maryam Pineda MD Reason For Visit: COPD EXACERBATION Diagnosis Discharge Diagnosis (1) COPD exacerbation: Status: Chronic Code(s): J44.1 - Chronic obstructive pulmonary disease with (acute) exacerbation Plan The patient is a 68 y/o F [facility] ED on 11/15/23 with history of increased oxygen requirements noted to be 86% on her normal oxygen supplementation at facility which ranges 2 L from previous records to reportedly 5 with increased work of breathing prompting eventual ED evaluation. At SNF they could not get her to increase her oxygenation despite aerosols and treatments. #1. Acute Encephalopathy to Acute on Chronic Hypoxic Respiratory Failure secondary to Acute on Chronic COPD exacerbation: Patient is admitted on MedSurg floor. Patient is being managed on scheduled bronchodilator, IV Solu-Medrol, Mucinex, incentive spirometry and Pep. Respiratory panel negative. Procalcitonin normal. Serum magnesium normal. Chronic CO2 retainer with bicarb more than 45. 11/16: Patient is still symptomatically short of breath on exertion. Oxygen requirement was high 5 L. 1 more day of hospital stay. 11/17: Oxygen requirement is 2 L at rest. Home qualification oxygen ordered. Patient discharged on burst prednisone therapy 40 mg daily for 5 days. #2. Hypokalemia: Admission K+ 3.3, repeat normal 3.9. 11/16: Hypokalemia resolved. #3. Seizure disorder: continue patient home phenytoin regimen, #4. Hx Takotsubo cardiomyopathy, HFpEF: 10/09/2022 echocardiogram with LVEF 55%, apical hypokinesis, LA mildly enlarged, moderate MVI, continue aspirin, statin, Lasix, metoprolol, not on KATHLEEN or/ARB. #5. Hypertension: Will continue patient home Lasix, metoprolol home regimen, PRN IV hydralazine. #6. Hyperlipidemia: We will continue patient home statin therapy. #7. Hx CVA, most recently Hx Hemorrhagic CVA: Patient with prior history of strokes including 01/2022 hemorrhagic stroke requiring transfer to [facility] and intervention at that time. Will continue patient home aspirin, statin, hypertensive regimen. #8. Hx VTE: Previous history DVT, not currently chronically anticoagulated especially given history of intracranial hemorrhage. #9. Chronic anemia, normocytic current admission: Admission hemoglobin 8.8, MCV 96.1, baseline hemoglobin primarily 9-11, will continue to trend CBC. 11/16: Hemoglobin in acceptable range 9.1/29.9%. #10. Chronic thrombocytopenia: Unclear exact etiology but does have history of previous alcohol abuse, admission platelets 119, from records since 11/24 baseline is primarily been 1 20-1 50, will continue to trend CBC #11. Anxiety and Depression: We will continue patient home mirtazapine, duloxetine, aripiprazole home regimen. Need to clarify as patient for some reason is also listed as being on escitalopram as well which will be held until this is further clarified. Patient also is on hydroxyzine which will be continued but held for sedation. #12. RLS: Per current list not on regimen, previously had been on Requip. #13. Former tobacco use: Encourage continued tobacco cessation. #14. GERD: Continue PPI. #15. TIO: BIPAP q HS. #16. DVT prophylaxis: Lovenox. #17. CODE status: Patient STACEY is her daughter who is present and living will is currently in place. Full code per facility paperwork. Discharge medication reconciliation done. Discharge follow-up instructions completed. Discharge process discussed with the patient and all questions were answered to patient's satisfaction. Follow with PCP in 1 to 2 weeks Total time spent, exact 35 minutes on discharge meds reconciliation, examination, coordination of care with nurses and ancillary staff, review of imaging and blood test and discussion with the patient on follow-up instructions. Medications at Discharge Home Medications cholecalciferol (vitamin D3) 25 mcg (1,000 unit) tablet (Vitamin D3) 25 mcg PO DAILY supplement 11/03/20 pantoprazole 40 mg tablet,delayed release (Protonix) 40 mg PO DAILY GERD 11/03/20 potassium chloride 20 mEq/15 mL oral liquid 40 meq (30 mL) G-tube BID #0 mL 07/25/22 aripiprazole 2 mg tablet (Abilify) 2 mg PO DAILY mental health 08/25/22 atorvastatin 40 mg tablet 40 mg PO QHS cholesterol 08/25/22 metoprolol succinate 25 mg tablet,extended release 24 hr 25 mg PO DAILY blood pressure 08/25/22 phenytoin 100 mg/4 mL oral suspension 100 mg (4 mL) PO Q8 30 days #360 mL 10/12/22 duloxetine 30 mg capsule,delayed release 30 mg PO DAILY mental health 11/11/22 furosemide 20 mg tablet 20 mg PO BIDCM diuretic 11/11/22 mirtazapine 7.5 mg tablet 7.5 mg PO QHS #30 tabs 11/11/22 albuterol sulfate 2.5 mg/3 mL (0.083 %) solution for nebulization 2.5 mg (3 mL) inhalation Q2H PRN PRN Dyspnea, wheezing #180 mL 06/30/23 albuterol sulfate 90 mcg/actuation aerosol inhaler 2 inh inhalation Q4H #8.5 grams 06/30/23 fluticasone fur. 100 mcg-umeclid 62.5 mcg-vilant 25 mcg inhalat.powder (Trelegy Ellipta) 1 inh inhalation DAILY 30 days #60 ea 06/30/23 nystatin 100,000 unit/mL oral suspension 5 ml mucous membrane TID #250 mL 06/30/23 aspirin 81 mg tablet,delayed release (Adult Aspirin Regimen) 81 mg PO DAILY 11/15/23 escitalopram oxalate 20 mg tablet 20 mg PO DAILY 11/15/23 hydroxyzine pamoate 25 mg capsule 25 mg PO TID 11/15/23 ipratropium 0.5 mg-albuterol 3 mg (2.5 mg base)/3 mL nebulization soln 3 ml inhalation Q6H 11/15/23 zolpidem 10 mg tablet 10 mg PO QHS PRN insomnia 11/15/23 acetaminophen 325 mg tablet 650 mg (2 x 325 mg) PO Q4H PRN PRN Fever, pain 1-04/13 #0 tabs 11/18/23 dextromethorphan-guaifenesin 30 mg-600 mg tablet extended [id number] hr (Mucinex DM) 2 tab PO BID 7 days #28 tabs 11/18/23 prednisone 20 mg tablet 40 mg (2 x 20 mg) PO DAILY 5 days #10 tabs 11/18/23 sennosides 8.6 mg-docusate sodium 50 mg tablet (Stool Softener-Stimulant Laxative) 2 tab PO BID PRN PRN Constipation #0 tabs 11/18/23 Physical Exam Narrative Seen and examined. Shortness of breath much better. Dyspnea on exertion improved. Patient has tracheostomy and PEG tube Physical exam General: Alert, Oriented x3, Cooperative HEENT: Atraumatic, PERRLA, EOMI, Normocephalic Oral: No Gingival or Mucosal Lesions/ Ulcerations Neck: Tracheostomy. Supple, No JVD, Negative Carotid Bruits Chest wall/Lungs: Air entry severely diminished in both lungs. Expiratory rhonchi. Cardiovascular: Regular rate, Regular Rhythm, Normal S1, Normal S2, No M/G/R Abdomen: PEG tube. Bowel Sounds Present, Soft, Non Tender, Non-Distended : No dysuria. No renal angle tenderness. No suprapubic tenderness. Extremities: No edema, Capillary Refill Less than 3 Seconds Skin: No rashes, No breakdown Musculoskeletal: No Tenderness to Palpation of Joints or Extremities Neurological: Cranial nerves II-XII grossly intact, DTR 2+/4. No acute focal neurological deficit. Psych/Mental Status: Normal Affect, Appropriate. Weight / BMI Weight Weight: 128 lb 15.527 oz Body Mass Index (BMI) 22.8 ABG / Lab / Microbiology Data 11/18/23 06:41 11/18/23 06:41 Laboratory: Laboratory Results - last 24 hr 11/18/23 06:41: WBC 8.9, RBC 3.66 L, Hgb 10.2 L, Hct 34.9 L, MCV 95.4, MCH 27.9, MCHC 29.2 L, RDW Std Deviation 49.7 H, RDW Coeff of Deonte 14.4, Plt Count 161, MPV 10.4, Immature Gran % (Auto) 0.600, Neut % (Auto) 64.4, Lymph % (Auto) 24.9, [place]le[place] % (Auto) 9.8, Eos % (Auto) 0.0, Baso % (Auto) 0.3, Absolute Neuts (auto) 5.7, Absolute Lymphs (auto) 2.20, Nucleated RBC % 0, Sodium 141, Potassium 3.6, Chloride 103, Carbon Dioxide 36.0 H, Anion Gap 2 L, BUN 21 H, Creatinine 0.74, Estim Creat Clear Calc 54.90, Est GFR (MDRD) Af Amer 100, Est GFR (MDRD) Non-Af 83, BUN/Creatinine Ratio 28.3 H, Glucose 124 H, Calcium 9.5 Microbiology: Microbiology 11/15/23 22:26 Mucosa - Nasopharyngeal Respiratory Panel (PCR) - Final Meaningful Use Info Meaningful Use Meaningful Use Diagnoses (Choose all that apply): None applicable Ischemic Stroke Statin Dosing Therapy Reference: STATIN DOSE THERAPY REFERENCE: * Patients > 75 years receive moderate or high dose statin therapy. * Patients 75 years or YOUNGER should receive HIGH intensity statin dose unless contraindicated. You will be required to document reason for non-treatment if statin daily dose does not meet guidelines. HIGH DOSE STATIN THERAPY DAILY Atorvastatin > than or = to 40 mg Rosuvastatin > than or = to 20 mg Amlodipine + Atorvastatin > than or = to 2.5/40 mg Ezetimibe + Simvastatin 10/80 mg Simvastatin 80mg Discharge Plan Admission Admit Date/Time: 11/15/23 14:52 Attending Provider: Tex Agee Primary Care Provider: Maryam Pineda Consulting Providers: Yazmin Buitrago Discharge Orders/Prescriptions Prescriptions: New acetaminophen 325 mg Tablet 650 mg PO Q4H PRN PRN (Reason: Fever, pain 1-04/13) Qty: 0 0RF sennosides-docusate sodium [Stool Softener-Stimulant Laxat] 8.6-50 mg Tablet 2 tab PO BID PRN PRN (Reason: Constipation) Qty: 0 0RF Mucinex DM 30-600 mg Tablet Extended Release 12 Hr 2 tab PO BID 7 Days Qty: 28 0RF prednisone 20 mg tablet 40 mg PO DAILY 5 Days Qty: 10 0RF Continued atorvastatin 40 mg tablet 40 mg PO QHS MDD 40 metoprolol succinate 25 mg tablet extended release 24 hr 25 mg PO DAILY MDD 25 aripiprazole [Abilify] 2 mg tablet 2 mg PO DAILY MDD 2mg albuterol sulfate 90 mcg/actuation HFA aerosol inhaler 2 inh inhalation Q4H Qty: 8.5 11RF albuterol sulfate 2.5 mg /3 mL (0.083 %) solution for nebulization 2.5 mg inhalation Q2H PRN PRN (Reason: Dyspnea, wheezing) Qty: 180 6RF Trelegy Ellipta 100-62.5-25 mcg blister with device 1 inh INHALATION DAILY 30 Days Qty: 60 6RF nystatin 100,000 unit/mL suspension 5 ml mucous membrane TID Qty: 250 1RF Rx Instructions: swish and swallow 5 cc three times per day for 10 days pantoprazole [Protonix] 40 mg Tablet,Delayed Release (Dr/Ec) 40 mg PO DAILY cholecalciferol (vitamin D3) [Vitamin D3] 25 mcg (1,000 unit) Tablet 25 mcg PO DAILY potassium chloride 20 mEq/15 mL Liquid 40 meq G-tube BID Qty: 0 0RF phenytoin 100 mg/4 mL Suspension 100 mg PO Q8 30 Days Qty: 360 2RF Patient Comments: PT NOT SURE IF SHE TAKES THIS OR NOT furosemide 20 mg tablet 20 mg PO BIDCM MDD 40 duloxetine 30 mg capsule,delayed release(DR/EC) 30 mg PO DAILY MDD 60 Patient Comments: PT UNAWARE IF MED IS 30MG OR 60MG mirtazapine 7.5 mg tablet 7.5 mg PO QHS Qty: 30 0RF aspirin [Adult Aspirin Regimen] 81 mg tablet,delayed release (DR/EC) 81 mg PO DAILY zolpidem 10 mg tablet 10 mg PO QHS PRN (Reason: insomnia) ipratropium-albuterol 0.5 mg-3 mg(2.5 mg base)/3 mL solution for nebulization 3 ml inhalation Q6H Rx Instructions: EVERY 6 HOURS WHILE AWAKE hydroxyzine pamoate 25 mg capsule 25 mg PO TID escitalopram oxalate 20 mg tablet 20 mg PO DAILY Referrals / Follow Up: Maryam Pineda MD [Primary Care Provider] - Ema Stevens NP, [employer]-[facility] [Med Staff - [facility] Practice Prof] - Within 2 Weeks (COPD exacerbation) Disposition Disposition (needs filled in before D/C Order can be placed): NonSkilled NH/Intermed Care Charges/Coding Visit Charges Inpatient E&M: 11482 Disch Hosp >30min
[2023-11-18] MEDS: Aspirin E.C. 81 MG Tablet PO (08:44)
[2023-11-18] MEDS: Pantoprazole Sodium 40 MG Tablet PO (08:44)
[2023-11-18] MEDS: DULoxetine Hcl 30 MG Capsule PO (08:45)
[2023-11-18] MEDS: ARIPiprazole 2 MG Tablet PO (08:45)
[2023-11-18] MEDS: Furosemide 20 MG Tablet PO (08:45)
[2023-11-18] MEDS: predniSONE 20 MG Tablet 40 MG PO (08:46)
[2023-11-18] MEDS: Potassium Chloride Oral Soln 20 MEQ/15 ML UDC 40 MEQ GT (09:21)
[2023-11-18] MEDS: guaiFENesin/D-Methorphan TAB.SR.12H 2 TABLET PO (09:21)
[2023-11-18] MEDS: Metoprolol(XL)Succ 25 MG Tablet 12.5 MG PO (09:30)
--- NOTE | 2023-11-18 10:01 | CASEMGMT ---
Discharge Planning Therapy eval's sent to [facility] as requested for precert. Carmen Butterfield DC Planning Asst.
[2023-11-18] MEDS: LORazepam 0.5 MG Tablet PO (11:54)
--- NOTE | 2023-11-18 11:59 | CASEMGMT ---
Social Work Pt is ready for discharge, [facility] can take pt back, they have precert from prior admission and insurance states pt can return on prior precert. SW sent the discharge paperwork via [employer]. SW set up a 2pm ambulance w/[facility]. SW let pt's daughter Ameena know pt can return to [facility] today, let her know the pickup time of 2pm. SW also let bedside RN know time of transport, she will let pt know. Pt to [facility], skilled, today. BURTON Elmore
--- NOTE | 2023-11-18 14:15 | NURSING ---
report called to [facility]
== END 2023-11-18 14:03 | disposition skilled nursing facility (03) | DRG 190 ==
LOC: ED 15:01 → MS3 18:26
PROVIDERS: Admitting Provider Family Medicine; Emergency Provider Emergency Medicine; PCP Internal Medicine; Visit Provider Internal Medicine
DX: J44.1 Chronic obstructive pulmonary disease with (acute) exacerbation (principal); J96.21 Acute and chronic respiratory failure with hypoxia; G93.41 Metabolic encephalopathy; I42.8 Other cardiomyopathies; E87.29 Other acidosis; I50.32 Chronic diastolic (congestive) heart failure; D69.6 Thrombocytopenia, unspecified; I11.0 Hypertensive heart disease with heart failure; G40.909 Epilepsy, unspecified, not intractable, without status epilepticus; F10.10 Alcohol abuse, uncomplicated; D64.9 Anemia, unspecified; G25.81 Restless legs syndrome; F32.A Depression, unspecified; E87.6 Hypokalemia; G47.33 Obstructive sleep apnea (adult) (pediatric); E78.5 Hyperlipidemia, unspecified; K21.9 Gastro-esophageal reflux disease without esophagitis; F41.9 Anxiety disorder, unspecified; Z87.891 Personal history of nicotine dependence; Z79.82 Long term (current) use of aspirin; Z79.51 Long term (current) use of inhaled steroids; Z86.73 Personal history of transient ischemic attack (TIA), and cerebral infarction without residual deficits
CPT/HCPCS: 36415; 36600; 71045; 80048; 80053; 80061; 82140; 82306; 82607; 82803; 83735; 83880; 84145; 84443; 84484; 85025; 87633; 87641; 93005; 94002; 94003; 94640; 94668; 94762; 97162; 97166; 99284; A4216

== ENCOUNTER → 2023-11-15 | Outpatient (REF) | payer MEDICARE, SELFPAY ==
[2023-11-15 08:54] LABS: Absolute Lymphocyte Count 1.68 X10^3/uL (0.83-4.51); Basophil# 0.04 X10^3/uL; Basophil% 0.7 % (0-1); Eosinophil# 0.35 X10^3/uL; Eosinophils% 6.3 % (0-5); Hematocrit 32.4 % (37-47); Hemoglobin 9.6 g/dL (12.0-15.0); Lymphocyte # 1.68 X10^3/ul (0.83-4.51); Lymphocyte % 30.3 % (19-41); Mean Corp Hgb Conc 29.6 g/dL (32-36); Mean Corpuscular Hgb 28.9 pg (27.0-32.0); Mean Corpuscular Volume 97.6 fL (81-99); Mean Platelet Vol. 10.1 fl (6.2-12.0); Monocyte# 0.47 X10^3/uL; Monocyte% 8.5 % (0-10); NRBC Flagged by Analyzer 0 % (0-5); Platelet Count 136 K/mm3 (150-450); RBC Distribution Width CV 13.3 % (11.6-14.6); Red Blood Count 3.32 M/mm3 (4.2-5.4); White Blood Count 5.6 K/mm3 (4.4-11.0)
[2023-11-15 09:58] LABS: BUN 14 mg/dL (7-18); BUN/Creat Ratio 17.3 RATIO (10-20); Calcium,Total 9.4 mg/dL (8.5-10.1); Carbon Dioxide > 45.0 mmol/L (21.0-32.0); Chloride 89 mmol/L (98-107); Cholesterol 138 mg/dL (200); Creatinine, Serum 0.81 mg/dL (0.55-1.02); EST Glomerular Filtration Rate 75 mL/min (>60); Est Glom Filt Rate - Afr Amer 90 mL/min (>60); Glucose 109 mg/dL (74-106); High Density Lipoprotein 67 mg/dL; Magnesium 1.6 mg/dL (1.6-2.6); Potassium 3.6 mmol/L (3.5-5.1); Sodium Level 139 mmol/L (136-145); Thyroid Stim Hormone (TSH) 3.89 uIU/mL (0.358-3.74); Triglycerides 81 mg/dL; Very Low Density Lipoprotein 16 mg/dL (5-40)
[2023-11-15 16:58] LABS: Vitamin B12 596 pg/mL (211-911); Vitamin D,25 Hydroxy 62.3 ng/mL
== END ==
LOC: OLS.SW 05:00
PROVIDERS: PCP Internal Medicine; Visit Provider Internal Medicine
DX: Z02.2 Encounter for examination for admission to residential institution (principal)
CPT/HCPCS: 36415; 80048; 80061; 82140; 82306; 82607; 83735; 84443; 85025

== ENCOUNTER → 2023-11-22 | Outpatient (REF) | payer SELFPAY ==
[2023-11-22 09:30] LABS: Absolute Lymphocyte Count 3.29 X10^3/uL (0.83-4.51); Absolute Neutrophil Count 6.6 X10^3/uL (2.0-7.7); Basophil# 0.03 X10^3/uL; Basophil% 0.3 % (0-1); Eosinophil# 0.17 X10^3/uL; Eosinophils% 1.5 % (0-5); Hematocrit 38.6 % (37-47); Hemoglobin 11.4 g/dL (12.0-15.0); Lymphocyte # 3.29 X10^3/ul (0.83-4.51); Lymphocyte % 29.6 % (19-41); Mean Corp Hgb Conc 29.5 g/dL (32-36); Mean Corpuscular Hgb 27.9 pg (27.0-32.0); Mean Corpuscular Volume 94.6 fL (81-99); Mean Platelet Vol. 10.5 fl (6.2-12.0); Monocyte# 1.01 X10^3/uL; Monocyte% 9.1 % (0-10); NRBC Flagged by Analyzer 0 % (0-5); Neutrophil # 6.58 X10^3/uL (2.7-7.7); Neutrophil % 59.1 % (47-70); Platelet Count 234 K/mm3 (150-450); RBC Distribution Width CV 13.6 % (11.6-14.6); RBC Distribution Width SD 47.2 fl (35.1-43.9); Red Blood Count 4.08 M/mm3 (4.2-5.4); White Blood Count 11.1 K/mm3 (4.4-11.0)
[2023-11-22 10:03] LABS: Phenytoin (Dilantin) Level 6.6 mL (10.0-20.0)
[2023-11-22 10:04] LABS: Vitamin B12 404 pg/mL (211-911); Vitamin D,25 Hydroxy 54.2 ng/mL
[2023-11-22 10:23] LABS: Anion Gap 6 (5-15); BUN 20 mg/dL (7-18); BUN/Creat Ratio 28.5 RATIO (10-20); Calcium,Total 9.6 mg/dL (8.5-10.1); Chloride 102 mmol/L (98-107); Cholesterol 163 mg/dL (200); EST Glomerular Filtration Rate 88 mL/min (>60); Est Glom Filt Rate - Afr Amer 106 mL/min (>60); Glucose 73 mg/dL (74-106); High Density Lipoprotein 61 mg/dL; Magnesium 2.3 mg/dL (1.6-2.6); Phosphorus 3.2 mg/dL (2.5-4.9); Potassium 4.1 mmol/L (3.5-5.1); Sodium Level 141 mmol/L (136-145); Thyroid Stim Hormone (TSH) 2.67 uIU/mL (0.358-3.74); Triglycerides 160 mg/dL; Very Low Density Lipoprotein 32 mg/dL (5-40)
[2023-11-22 12:11] LABS: Hemoglobin A1c 4.8 % (3.8-5.6)
== END | disposition home or self-care (01) ==
LOC: OLS.SW 04:00
PROVIDERS: PCP Internal Medicine; Referring Provider Internal Medicine; Visit Provider Internal Medicine
DX: R10.9 Unspecified abdominal pain (principal); R11.0 Nausea
CPT/HCPCS: 36415; 80048; 80061; 80185; 82306; 82607; 83036; 83735; 84100; 84443; 85025

== ENCOUNTER 2023-12-06 17:40 | Emergency (ER) | payer MEDICARE, SELFPAY ==
[2023-12-06] VITALS (7 sets, daily range): BP systolic 83–106; BP diastolic 40–56; PULSE 81–101; RESP 16–25; TEMP 35.9–36.6; O2SAT 95–100; BMI 23.6
--- NOTE | 2023-12-06 18:31 | EKG12_ITS ---
Test Reason : Blood Pressure : / mmHG Vent. Rate : 086 BPM Atrial Rate : 086 BPM P-R Int : 124 ms QRS Dur : 082 ms QT Int : 332 ms P-R-T Axes : 067 047 054 degrees QTc Int : 397 ms Normal sinus rhythm Cannot rule out Inferior infarct (cited on or before 09-NOV-2022) Abnormal ECG Confirmed by MOISES MENDES, LINDSEY ([id number]), proposal editor JUDY BE ([id number]) on 12/07/2023 2:13:00 PM Referred By: Confirmed By:LINDSEY DE LEON MD
[2023-12-06] MEDS: 0.9% Normal Saline (1000mL) 500 ML 150 ML IV (18:35)
--- NOTE | 2023-12-06 18:46 | ED.RN ---
16 minutes and NS is still not verified. called and requested it be verified, explained i needed to be able to chart on the NS, the pharmacists will get to it shortly.
--- NOTE | 2023-12-06 18:55 | RAD_ITS ---
STUDY: X-RAY CHEST REASON FOR EXAM: Female, 68 years old. sob TECHNIQUE: Single AP portable view of the chest. COMPARISON: 11/15/2023. FINDINGS: Stable tracheostomy tube terminating 7 cm above the claude. There is hyperinflation of the lungs consistent with chronic obstructive lung disease (COPD). No infiltrates or effusions. There is no demonstrated pleural abnormality. Normal size heart. Normal mediastinum and jacinto. Normal visualized pulmonary arteries. Normal visualized aortic arch and descending thoracic aorta. Normal visualized thoracic spine. Normal visualized ribs, clavicles, and shoulders. There is no demonstrated abnormality of the visualized soft tissue structures of the upper abdomen. RAD/Chest 1 View (Portable) IMPRESSION: There are findings consistent with COPD. There is no evidence of acute chest disease. Electronically Signed: Deejay Weinberg MD at 19:05 EDT ,
[2023-12-06 18:57] LABS: Absolute Lymphocyte Count 1.58 X10^3/uL (0.83-4.51); Absolute Neutrophil Count 4.7 X10^3/uL (2.0-7.7); Basophil# 0.02 X10^3/uL; Basophil% 0.3 % (0-1); Eosinophil# 0.22 X10^3/uL; Eosinophils% 3.1 % (0-5); Hematocrit 35.5 % (37-47); Hemoglobin 10.3 g/dL (12.0-15.0); Lymphocyte # 1.58 X10^3/ul (0.83-4.51); Lymphocyte % 22.2 % (19-41); Mean Corpuscular Hgb 27.7 pg (27.0-32.0); Mean Corpuscular Volume 95.4 fL (81-99); Monocyte# 0.57 X10^3/uL; NRBC Flagged by Analyzer 0 % (0-5); Neutrophil # 4.72 X10^3/uL (2.7-7.7); Neutrophil % 66.1 % (47-70); Platelet Count 187 K/mm3 (150-450); RBC Distribution Width CV 13.2 % (11.6-14.6); RBC Distribution Width SD 46.1 fl (35.1-43.9); Red Blood Count 3.72 M/mm3 (4.2-5.4); White Blood Count 7.1 K/mm3 (4.4-11.0)
[2023-12-06 19:12] LABS: Anion Gap 2 (5-15); BUN 17 mg/dL (7-18); BUN/Creat Ratio 23.8 RATIO (10-20); Calcium,Total 8.9 mg/dL (8.5-10.1); Chloride 99 mmol/L (98-107); Creatinine, Serum 0.72 mg/dL (0.55-1.02); EST Glomerular Filtration Rate 86 mL/min (>60); Est Glom Filt Rate - Afr Amer 104 mL/min (>60); Glucose 106 mg/dL (74-106); Potassium 4.2 mmol/L (3.5-5.1); Sodium Level 140 mmol/L (136-145)
--- NOTE | 2023-12-06 20:14 | EDS_ITS ---
HPI History of Present Illness Chief Complaint: General Illness Informant: patient Narrative Narrative: Patient presents via EMS stating that she wants her PEG tube and tracheostomy taken out. She knows it was put in several weeks ago in [place]. She does not remember the details. I was later able to review records. Patient was treated at [facility] September 25 through October 11. She had been seen here with status epilepticus and intubated. They attempted to extubate her 2 or 3 times and had to reintubate, so they progressed with trach and PEG tube placement. Patient was discharged to local [facility] and is currently now at home. She states that she has been eating by mouth and not necessarily using her PEG tube. She does wear 3 L of oxygen when she sleeps. She is supposed to use it during the day, but does admit she tends to take it off. She tells me that she is intermittently checking her oxygen saturations. When EMS arrived today reportedly her O2 sat was only 74% on room air. [facility] Medical History COPD exacerbation Respiratory failure Hypothyroidism Former smoker BiPAP (biphasic positive airway pressure) dependence On home oxygen therapy Asthma Seizures Stroke/cerebrovascular accident Noncompliance Diastolic CHF History of alcohol abuse Aspiration pneumonia due to gastric secretions Carcinoma in situ of breast Benign neoplasm of colon Takotsubo cardiomyopathy (06/17/21) Ischemic cerebrovascular accident (CVA) (02/06/17) Non-rheumatic mitral regurgitation Anxiety and depression Non-ischemic cardiomyopathy Essential (primary) hypertension Secondary pulmonary arterial hypertension Chronic anemia GERD (gastroesophageal reflux disease) TIO (obstructive sleep apnea) History of non-ST elevation myocardial infarction (NSTEMI) (02/03/17) History of DVT of lower extremity (02/11/17) Insomnia Hyperlipidemia Daytime hypersomnia Hemorrhagic cerebrovascular accident (CVA) (02/09/17) COPD (chronic obstructive pulmonary disease) Home Medications ?Medication ?Instructions ?Recorded ?Last Taken ?Type cholecalciferol (vitamin D3) 25 25 mcg PO DAILY supplement 11/03/20 Unknown History mcg (1,000 unit) tablet (Vitamin D3) pantoprazole 40 mg tablet,delayed 40 mg PO DAILY GERD 11/03/20 11/15/23 History release (Protonix) potassium chloride 20 mEq/15 mL 40 meq (30 mL) G-tube BID #0 mL 07/25/22 11/15/23 Rx oral liquid aripiprazole 2 mg tablet (Abilify) 2 mg PO DAILY mental health 08/25/22 11/15/23 History atorvastatin 40 mg tablet 40 mg PO QHS cholesterol 08/25/22 11/15/23 History metoprolol succinate 25 mg 25 mg PO DAILY blood pressure 08/25/22 11/15/23 History tablet,extended release 24 hr phenytoin 100 mg/4 mL oral 100 mg (4 mL) PO Q8 30 days #360 mL 10/12/22 Unknown Rx suspension duloxetine 30 mg capsule,delayed 30 mg PO DAILY mental health 11/11/22 11/15/23 History release furosemide 20 mg tablet 20 mg PO BIDCM diuretic 11/11/22 11/15/23 History mirtazapine 7.5 mg tablet 7.5 mg PO QHS #30 tabs 11/11/22 11/14/23 Rx albuterol sulfate 2.5 mg/3 mL 2.5 mg (3 mL) inhalation Q2H PRN 06/30/23 11/15/23 Rx (0.083 %) solution for nebulization PRN Dyspnea, wheezing #180 mL albuterol sulfate 90 mcg/actuation 2 inh inhalation Q4H #8.5 grams 06/30/23 11/15/23 Rx aerosol inhaler fluticasone fur. 100 mcg-umeclid 1 inh inhalation DAILY 30 days #60 06/30/23 11/15/23 Rx 62.5 mcg-vilant 25 mcg ea inhalat.powder (Trelegy Ellipta) nystatin 100,000 unit/mL oral 5 ml mucous membrane TID #250 mL 06/30/23 11/15/23 Rx suspension aspirin 81 mg tablet,delayed 81 mg PO DAILY 11/15/23 11/15/23 History release (Adult Aspirin Regimen) escitalopram oxalate 20 mg tablet 20 mg PO DAILY 11/15/23 11/15/23 History hydroxyzine pamoate 25 mg capsule 25 mg PO TID 11/15/23 11/15/23 History ipratropium 0.5 mg-albuterol 3 mg 3 ml inhalation Q6H 11/15/23 11/15/23 History (2.5 mg base)/3 mL nebulization soln zolpidem 10 mg tablet 10 mg PO QHS PRN insomnia 11/15/23 11/14/23 History acetaminophen 325 mg tablet 650 mg (2 x 325 mg) PO Q4H PRN PRN 11/18/23 Unknown Rx Fever, pain 1-04/13 #0 tabs dextromethorphan-guaifenesin 30 2 tab PO BID 7 days #28 tabs 11/18/23 Unknown Rx mg-600 mg tablet extended [id number] hr (Mucinex DM) prednisone 20 mg tablet 40 mg (2 x 20 mg) PO DAILY 5 days 11/18/23 Unknown Rx #10 tabs sennosides 8.6 mg-docusate sodium 2 tab PO BID PRN PRN Constipation 11/18/23 Unknown Rx 50 mg tablet (Stool #0 tabs Softener-Stimulant Laxative) Allergy/AdvReac Type Severity Reaction Status Date / Time tetanus and diphtheria Allergy Hives Verified 12/06/23 17:50 toxoids (tetanus & diphtheria toxoids) Family History Sister Cancer lung Father Cancer lung Mother Cancer lung Surgical History S/P emergency tracheotomy for assistance in breathing History of tracheostomy S/P percutaneous endoscopic gastrostomy (PEG) tube placement History of left heart catheterization (06/17/21) History of bilateral cataract extraction Hx of appendectomy H/O: section History of lumpectomy History of cholecystectomy Social History household members: spouse Smoking Status: Former smoker how long ago did patient quit smokin, 1pk/day second hand exposure: Yes alcohol intake: former substance use type: does not use what type of physical activity do you participate in: walking frequency: daily ROS ROS ED Constitutional Constitutional ED: Denies chills or fever(s) Eyes Eyes: Denies discharge from eye(s) ENT ENT ED: Denies discharge from eye(s), rhinorrhea or sore throat Cardiovascular Cardiovascular: Denies chest pain or palpitations Respiratory/Chest Respiratory/Chest: Denies cough or dyspnea Gastrointestinal Gastrointestinal: Reports abdominal pain and other Details: Abdominal pain at PEG tube site. ; Denies diarrhea, nausea or vomiting Genitourinary Genitourinary ED: Denies dysuria Musculoskeletal Musculoskeletal: Denies back pain or extremity pain Integumentary Denies Abrasions or rash Neurologic Neurologic: Denies headache(s) or weakness Psychiatric Psychiatric: Denies anxiety or depression Allergic/Immunologic Allergic/Immunologic ED: Denies lip swelling or urticaria EXAM Physical Exam Const Vital Signs: 12/06/23 17:47 12/06/23 18:15 12/06/23 18:18 Temperature 96.7 F L Temperature Source Temporal Pulse Rate 93 101 H 92 Respiratory Rate 16 18 Respiratory Effort Blood Pressure 87/56 L 83/40 L Blood Pressure Mean 66 54 Pulse Ox 97 97 97 Oxygen Delivery Method Nasal Cannula Nasal Cannula Nasal Cannula Oxygen Flow Rate (L/min) 3 3 3 12/06/23 18:18 12/06/23 18:42 12/06/23 18:50 Temperature 97 F L Temperature Source Temporal Pulse Rate 81 84 Respiratory Rate 17 25 H Respiratory Effort Short of Breath Blood Pressure 100/47 L 106/45 L Blood Pressure Mean 64 65 Pulse Ox 100 100 Oxygen Delivery Method Nasal Cannula Nasal Cannula Oxygen Flow Rate (L/min) 3 3 12/06/23 19:00 Temperature 97.1 F L Temperature Source Temporal Pulse Rate 84 Respiratory Rate 21 H Respiratory Effort Blood Pressure 104/48 L Blood Pressure Mean 66 Pulse Ox 100 Oxygen Delivery Method Nasal Cannula Oxygen Flow Rate (L/min) 3 Positive well nourished and well developed General Appearance ED: well developed HEENT Reports moist mucous membranes Eyes EOMs intact bilaterally Neck Neck Narrative: Tracheostomy in place. Site clean with no sign of infection. Chest Wall inspection of chest normal and palpation of chest normal Resp normal respiratory effort and clear to auscultation bilaterally Cardio regular rate and regular rhythm GI GI Narrative: Abdomen soft with mild focal tenderness around the PEG tube site. No sign of infection. Extremity normal to inspection Neuro oriented x3 Psych mental status grossly normal MDM MDM MDM Narrative Medical decision making narrative: Patient was mildly hypotensive 87/56 on arrival. On review of records it appears her blood pressure usually runs in the mid 90s to about 115 systolic. Patient placed on surveillance monitor. IV fluids were run for max of 500 cc. EKG obtained to evaluate for cardiac arrhythmia/ischemia. Labwork obtained to evaluate for leukocytosis, anemia, and electrolyte derangement. Chest x-ray obtained to evaluate for acute lung pathology, cardiac size, or mediastinal abnormality. History & Record Review Discussion w/independent historian: Patient Additional record(s) reviewed:: Prior inpatient record, Prior ED visit and Prior labs Lab Data Attestation: I reviewed the patient's lab results. Labs: Laboratory Results - last 24 hr 12/06/23 18:26 WBC 7.1 RBC 3.72 L Hgb 10.3 L Hct 35.5 L MCV 95.4 MCH 27.7 MCHC 29.0 L RDW Std Deviation 46.1 H RDW Coeff of Deonte 13.2 Plt Count 187 MPV 10.0 Immature Gran % (Auto) 0.300 Neut % (Auto) 66.1 Lymph % (Auto) 22.2 Boyd % (Auto) 8.0 Eos % (Auto) 3.1 Baso % (Auto) 0.3 Absolute Neuts (auto) 4.7 Absolute Lymphs (auto) 1.58 Nucleated RBC % 0 Sodium 140 Potassium 4.2 Chloride 99 Carbon Dioxide 39.0 H Anion Gap 2 L BUN 17 Creatinine 0.72 Estim Creat Clear Calc 54.90 Est GFR (MDRD) Af Amer 104 Est GFR (MDRD) Non-Af 86 BUN/Creatinine Ratio 23.8 H Glucose 106 Calcium 8.9 Radiography Chest X-Ray - ED: 1 View, Chronic Changes and No Infiltrates Diagnostic Testing: Clinical Impression(s) from Imaging Studies Chest X-Ray 12/06/23 18:55 IMPRESSION: There are findings consistent with COPD. There is no evidence of acute chest disease. Electronically Signed: Deejay Weinberg MD at 19:05 EDT , EKG Initial EKG: Attestation: I personally reviewed and interpreted this EKG as follows: Interpretation: Sinus Rhythm (Sinus 86 with no acute ischemia.) Treatment and Re-Evaluation :: CBC was a white count of 7.1 with a hemoglobin of 10.3. Chemistry studies unremarkable other than a bicarb of 39. Portable chest x-ray per my interpretation was chronic changes with no focal infiltrate. Radiology interpretation reviewed and agrees. EKG is sinus rhythm. With IV fluids patient's systolic blood pressure has come up just over 100. This appears to be consistent with her baseline. Patient did see her primary care physician on November 24 stating that she wanted to have her trach and PEG removed. Per his note, referrals were made to surgery and ENT to have her evaluated for this. Patient states she has not received any phone calls or appointments. I advised her that I was happy to give her phone numbers for ENT, pulmonology, as well as surgery here and she could try to be seen sooner. I advised her that I cannot take out her trach and PEG in the emergency room. I am happy to get her information for follow-up to try to get these removed if she is stable. Discharge Plan Triage Chief Complaint: General Illness ED Provider: Jackie Figueroa Dx/Rx/DC Orders Clinical Impression: Hypotension Instructions: ED Low Blood Pressure, All Causes Prescriptions: No Action atorvastatin 40 mg tablet 40 mg PO QHS MDD 40 metoprolol succinate 25 mg tablet extended release 24 hr 25 mg PO DAILY MDD 25 aripiprazole [Abilify] 2 mg tablet 2 mg PO DAILY MDD 2mg albuterol sulfate 90 mcg/actuation HFA aerosol inhaler 2 inh inhalation Q4H Qty: 8.5 11RF albuterol sulfate 2.5 mg /3 mL (0.083 %) solution for nebulization 2.5 mg inhalation Q2H PRN PRN (Reason: Dyspnea, wheezing) Qty: 180 6RF Trelegy Ellipta 100-62.5-25 mcg blister with device 1 inh INHALATION DAILY 30 Days Qty: 60 6RF nystatin 100,000 unit/mL suspension 5 ml mucous membrane TID Qty: 250 1RF Rx Instructions: swish and swallow 5 cc three times per day for 10 days pantoprazole [Protonix] 40 mg Tablet,Delayed Release (Dr/Ec) 40 mg PO DAILY cholecalciferol (vitamin D3) [Vitamin D3] 25 mcg (1,000 unit) Tablet 25 mcg PO DAILY potassium chloride 20 mEq/15 mL Liquid 40 meq G-tube BID Qty: 0 0RF phenytoin 100 mg/4 mL Suspension 100 mg PO Q8 30 Days Qty: 360 2RF Patient Comments: PT NOT SURE IF SHE TAKES THIS OR NOT furosemide 20 mg tablet 20 mg PO BIDCM MDD 40 duloxetine 30 mg capsule,delayed release(DR/EC) 30 mg PO DAILY MDD 60 Patient Comments: PT UNAWARE IF MED IS 30MG OR 60MG mirtazapine 7.5 mg tablet 7.5 mg PO QHS Qty: 30 0RF aspirin [Adult Aspirin Regimen] 81 mg tablet,delayed release (DR/EC) 81 mg PO DAILY zolpidem 10 mg tablet 10 mg PO QHS PRN (Reason: insomnia) ipratropium-albuterol 0.5 mg-3 mg(2.5 mg base)/3 mL solution for nebulization 3 ml inhalation Q6H Rx Instructions: EVERY 6 HOURS WHILE AWAKE hydroxyzine pamoate 25 mg capsule 25 mg PO TID escitalopram oxalate 20 mg tablet 20 mg PO DAILY acetaminophen 325 mg Tablet 650 mg PO Q4H PRN PRN (Reason: Fever, pain -04/13) Qty: 0 0RF sennosides-docusate sodium [Stool Softener-Stimulant Laxat] 8.6-50 mg Tablet 2 tab PO BID PRN PRN (Reason: Constipation) Qty: 0 0RF Mucinex DM 30-600 mg Tablet Extended Release 12 Hr 2 tab PO BID 7 Days Qty: 28 0RF prednisone 20 mg tablet 40 mg PO DAILY 5 Days Qty: 10 0RF Primary Care Provider: Maryam Pineda Referrals: Maryam Pineda MD [Primary Care Provider] - Anurag Flannery DO [Med Staff - Active Staff] - 1-2 Weeks Rayray Mcdonald MD [Med Staff - Active Staff] - 1-2 Weeks Leobardo Renteria MD [Med Staff - Active Staff] - 1-2 Weeks Print Language: Faroese Disposition Disposition: Home, Self Care
== END 2023-12-06 20:56 | disposition home or self-care (01) ==
PROVIDERS: Emergency Provider Emergency Medicine; PCP Internal Medicine; Visit Provider Emergency Medicine
DX: I95.9 Hypotension, unspecified (principal); Z93.1 Gastrostomy status; I27.21 Secondary pulmonary arterial hypertension; I50.32 Chronic diastolic (congestive) heart failure; I11.0 Hypertensive heart disease with heart failure; J44.9 Chronic obstructive pulmonary disease, unspecified; Z87.891 Personal history of nicotine dependence; Z99.81 Dependence on supplemental oxygen; K21.9 Gastro-esophageal reflux disease without esophagitis; G47.33 Obstructive sleep apnea (adult) (pediatric); Z86.718 Personal history of other venous thrombosis and embolism; E78.5 Hyperlipidemia, unspecified; Z79.899 Other long term (current) drug therapy
CPT/HCPCS: 71045; 80048; 85025; 93005; 96360; 96361; 99284; J7030; A4216

== ENCOUNTER 2023-12-13 11:37 | Emergency (ER) | payer MEDICARE, SELFPAY ==
[2023-12-13 11:40] VITALS: BP 110/49; PULSE 92; RESP 20; RESP 22; TEMP 36.6; O2SAT 96; BMI 24.6
--- NOTE | 2023-12-13 12:04 | EX.ED.DYSGE1 ---
HPI History of Present Illness Chief Complaint: Wound Check [facility] Medical History COPD exacerbation Respiratory failure Hypothyroidism Former smoker BiPAP (biphasic positive airway pressure) dependence On home oxygen therapy Asthma Seizures Stroke/cerebrovascular accident Noncompliance Diastolic CHF History of alcohol abuse Aspiration pneumonia due to gastric secretions Carcinoma in situ of breast Benign neoplasm of colon Takotsubo cardiomyopathy (06/17/21) Ischemic cerebrovascular accident (CVA) (02/06/17) Non-rheumatic mitral regurgitation Anxiety and depression Non-ischemic cardiomyopathy Essential (primary) hypertension Secondary pulmonary arterial hypertension Chronic anemia GERD (gastroesophageal reflux disease) TIO (obstructive sleep apnea) History of non-ST elevation myocardial infarction (NSTEMI) (02/03/17) History of DVT of lower extremity (02/11/17) Insomnia Hyperlipidemia Daytime hypersomnia Hemorrhagic cerebrovascular accident (CVA) (02/09/17) COPD (chronic obstructive pulmonary disease) Home Medications ?Medication ?Instructions ?Recorded ?Last Taken ?Type cholecalciferol (vitamin D3) 25 25 mcg PO DAILY supplement 11/03/20 Unknown History mcg (1,000 unit) tablet (Vitamin D3) pantoprazole 40 mg tablet,delayed 40 mg PO DAILY GERD 11/03/20 11/15/23 History release (Protonix) potassium chloride 20 mEq/15 mL 40 meq (30 mL) G-tube BID #0 mL 07/25/22 11/15/23 Rx oral liquid aripiprazole 2 mg tablet (Abilify) 2 mg PO DAILY mental health 08/25/22 11/15/23 History atorvastatin 40 mg tablet 40 mg PO QHS cholesterol 08/25/22 11/15/23 History metoprolol succinate 25 mg 25 mg PO DAILY blood pressure 08/25/22 11/15/23 History tablet,extended release 24 hr phenytoin 100 mg/4 mL oral 100 mg (4 mL) PO Q8 30 days #360 mL 10/12/22 Unknown Rx suspension duloxetine 30 mg capsule,delayed 30 mg PO DAILY mental health 11/11/22 11/15/23 History release furosemide 20 mg tablet 20 mg PO BIDCM diuretic 11/11/22 11/15/23 History mirtazapine 7.5 mg tablet 7.5 mg PO QHS #30 tabs 11/11/22 11/14/23 Rx albuterol sulfate 2.5 mg/3 mL 2.5 mg (3 mL) inhalation Q2H PRN 06/30/23 11/15/23 Rx (0.083 %) solution for nebulization PRN Dyspnea, wheezing #180 mL albuterol sulfate 90 mcg/actuation 2 inh inhalation Q4H #8.5 grams 06/30/23 11/15/23 Rx aerosol inhaler fluticasone fur. 100 mcg-umeclid 1 inh inhalation DAILY 30 days #60 06/30/23 11/15/23 Rx 62.5 mcg-vilant 25 mcg ea inhalat.powder (Trelegy Ellipta) nystatin 100,000 unit/mL oral 5 ml mucous membrane TID #250 mL 06/30/23 11/15/23 Rx suspension aspirin 81 mg tablet,delayed 81 mg PO DAILY 11/15/23 11/15/23 History release (Adult Aspirin Regimen) escitalopram oxalate 20 mg tablet 20 mg PO DAILY 11/15/23 11/15/23 History hydroxyzine pamoate 25 mg capsule 25 mg PO TID 11/15/23 11/15/23 History ipratropium 0.5 mg-albuterol 3 mg 3 ml inhalation Q6H 11/15/23 11/15/23 History (2.5 mg base)/3 mL nebulization soln zolpidem 10 mg tablet 10 mg PO QHS PRN insomnia 11/15/23 11/14/23 History acetaminophen 325 mg tablet 650 mg (2 x 325 mg) PO Q4H PRN PRN 11/18/23 Unknown Rx Fever, pain 1-04/13 #0 tabs dextromethorphan-guaifenesin 30 2 tab PO BID 7 days #28 tabs 11/18/23 Unknown Rx mg-600 mg tablet extended hr (Mucinex DM) prednisone 20 mg tablet 40 mg (2 x 20 mg) PO DAILY 5 days 11/18/23 Unknown Rx #10 tabs sennosides 8.6 mg-docusate sodium 2 tab PO BID PRN PRN Constipation 11/18/23 Unknown Rx 50 mg tablet (Stool #0 tabs Softener-Stimulant Laxative) sulfamethoxazole 800 1 tab PO DAILY 14 days #14 tabs 12/13/23 Unknown Rx mg-trimethoprim 160 mg tablet (Bactrim DS) Allergy/AdvReac Type Severity Reaction Status Date / Time tetanus and diphtheria Allergy Hives Verified 12/06/23 17:50 toxoids (tetanus & diphtheria toxoids) Family History Sister Cancer lung Father Cancer lung Mother Cancer lung Surgical History S/P emergency tracheotomy for assistance in breathing History of tracheostomy S/P percutaneous endoscopic gastrostomy (PEG) tube placement History of left heart catheterization (06/17/21) History of bilateral cataract extraction Hx of appendectomy H/O: section History of lumpectomy History of cholecystectomy Social History household members: spouse Smoking Status: Former smoker how long ago did patient quit smokin, 1pk/day second hand exposure: Yes alcohol intake: former substance use type: does not use what type of physical activity do you participate in: walking frequency: daily EXAM Physical Exam Const Vital Signs: 12/13/23 11:40 12/13/23 11:40 12/13/23 12:47 Temperature 98 F Temperature Source Temporal Pulse Rate 92 92 84 Respiratory Rate 20 H 22 H 21 H Blood Pressure 110/49 L 110/49 L 103/66 Blood Pressure Mean 69 69 78 Pulse Ox 96 100 Oxygen Delivery Method Nasal Cannula Nasal Cannula Oxygen Flow Rate (L/min) 2 2 12/13/23 13:00 Temperature Temperature Source Pulse Rate 87 Respiratory Rate 20 H Blood Pressure Blood Pressure Mean Pulse Ox 99 Oxygen Delivery Method Oxygen Flow Rate (L/min) MDM MDM MDM Narrative Medical decision making narrative: HISTORY OF PRESENT ILLNESS: 68-year-old female presents with concern for tracheostomy infection. Denies neck pain, shortness of breath, chest pain, vomiting, fever REVIEW OF SYSTEMS: Pertinent positives: Redness, discharge Pertinent negatives: neck pain, shortness of breath, chest pain, vomiting, fever PHYSICAL EXAM: Nursing triage notes reviewed, Vital signs reviewed Constitutional: please see mdm HENT: MMM Eyes: Pupils equal round and reactive to light, Extraocular muscles intact Neck: No stridor, no JVD, full neck ROM, tracheostomy in place, there is surrounding erythema and purulent drainage noted, no crepitus or bullae, no significant tenderness to palpation, skin is warm. Lungs: Clear to auscultation, No wheezing or rales. No increased work of breathing, no conversational dyspnea, no accessory muscle use, no nasal flaring. No respiratory distress noted Heart: Regular rate and rhythm, No murmurs, No rubs and No gallops, 2+ distal pulses (radial, femoral, posterior tibial) in all extremities Abdomen: Soft, there is no tenderness, rigidity, rebound or guarding, no obvious peritoneal signs, no palpable pulsatile abdominal masses, no auscultated abdominal bruit : No CVAT Extremities: No edema Neuro: No focal neurological deficits, cranial nerves II through XII intact, 5/5 strength in all extremities. Intact sensation to light touch in all extremities, 2+ reflexes bilateral patella tendons. Normal gait. No ataxia. Skin: As above MEDICAL DECISION MAKING: Chief Complaint: Wound check External records reviewed: Reviewed recent inpatient visit for COPD exacerbation from 11/18/2023 at this time patient was hospitalized for 3 days. Factors affecting care: Multiple medical comorbidities including COPD, Takotsubo's cardiomyopathy, hypertension, hyperlipidemia, CVA, chronic anemia, Social determinants of health: none [] History obtained from others: none [] Consults: none [] MDM Narrative: Patient was hemodynamically stable, afebrile, nontoxic-appearing saturating at baseline 2 L Exam consistent with likely tracheostomy site infection. No signs of pneumonia or deeper infection. No signs of necrotizing fasciitis. Will give prophylactic anti-MRSA antibiotics in the form of Bactrim. Will give a 7-day course. Sent for wound culture to optimize antimicrobial therapy. Give strict return precautions and follow-up instructions The patient and/or family, caregivers express understanding. The patient and/or family, caregivers agrees with the plan. Shared decision making: I will have a discussion with the patient and or visitors regarding risk/benefits of further testing or admission. They will be made aware of of the risk/benefits inherent in this decision they will be given the opportunity to voice understanding. Total critical care time today provided was at least 0 minutes. This excludes separately billable procedures. Critical care time (if documented) is secondary to the patient having high probability of clinically significant/life threatening deterioration in the patient's condition which required my urgent intervention. Impression: 1. Tracheostomy site infection 2. Cellulitis Dispo: Discharge home This note was generated with [employer] dictation software. It may contain incorrect words, spelling, and punctuation that were not noted in review of the chart prior to signing. Discharge Plan Triage Chief Complaint: Wound Check Other Complaint: Chest Other ED Provider: Shailesh Lacy Dx/Rx/DC Orders Instructions: ED Wound Check (Infection) Prescriptions: New sulfamethoxazole-trimethoprim [Bactrim DS] 800-160 mg tablet 1 tab PO DAILY 14 Days Qty: 14 0RF No Action atorvastatin 40 mg tablet 40 mg PO QHS MDD 40 metoprolol succinate 25 mg tablet extended release 24 hr 25 mg PO DAILY MDD 25 aripiprazole [Abilify] 2 mg tablet 2 mg PO DAILY MDD 2mg albuterol sulfate 90 mcg/actuation HFA aerosol inhaler 2 inh inhalation Q4H Qty: 8.5 11RF albuterol sulfate 2.5 mg /3 mL (0.083 %) solution for nebulization 2.5 mg inhalation Q2H PRN PRN (Reason: Dyspnea, wheezing) Qty: 180 6RF Trelegy Ellipta 100-62.5-25 mcg blister with device 1 inh INHALATION DAILY 30 Days Qty: 60 6RF nystatin 100,000 unit/mL suspension 5 ml mucous membrane TID Qty: 250 1RF Rx Instructions: swish and swallow 5 cc three times per day for 10 days pantoprazole [Protonix] 40 mg Tablet,Delayed Release (Dr/Ec) 40 mg PO DAILY cholecalciferol (vitamin D3) [Vitamin D3] 25 mcg (1,000 unit) Tablet 25 mcg PO DAILY potassium chloride 20 mEq/15 mL Liquid 40 meq G-tube BID Qty: 0 0RF phenytoin 100 mg/4 mL Suspension 100 mg PO Q8 30 Days Qty: 360 2RF Patient Comments: PT NOT SURE IF SHE TAKES THIS OR NOT furosemide 20 mg tablet 20 mg PO BIDCM MDD 40 duloxetine 30 mg capsule,delayed release(DR/EC) 30 mg PO DAILY MDD 60 Patient Comments: PT UNAWARE IF MED IS 30MG OR 60MG mirtazapine 7.5 mg tablet 7.5 mg PO QHS Qty: 30 0RF aspirin [Adult Aspirin Regimen] 81 mg tablet,delayed release (DR/EC) 81 mg PO DAILY zolpidem 10 mg tablet 10 mg PO QHS PRN (Reason: insomnia) ipratropium-albuterol 0.5 mg-3 mg(2.5 mg base)/3 mL solution for nebulization 3 ml inhalation Q6H Rx Instructions: EVERY 6 HOURS WHILE AWAKE hydroxyzine pamoate 25 mg capsule 25 mg PO TID escitalopram oxalate 20 mg tablet 20 mg PO DAILY acetaminophen 325 mg Tablet 650 mg PO Q4H PRN PRN (Reason: Fever, pain 1-04/13) Qty: 0 0RF sennosides-docusate sodium [Stool Softener-Stimulant Laxat] 8.6-50 mg Tablet 2 tab PO BID PRN PRN (Reason: Constipation) Qty: 0 0RF Mucinex DM 30-600 mg Tablet Extended Release 12 Hr 2 tab PO BID 7 Days Qty: 28 0RF prednisone 20 mg tablet 40 mg PO DAILY 5 Days Qty: 10 0RF Primary Care Provider: Maryam Pineda Referrals: Maryam Pineda MD [Primary Care Provider] - Activity Restrictions/Additional Instructions: Thank you for trusting us with your care today! Please take Tylenol (2 pills, 650 mg), ibuprofen (2 pills, 400 mg) every 6 hours as needed for pain and fever control. Please take antibiotics as prescribed Please follow-up your primary care physician to review wound culture results. We do have a culture callback process here in the [facility] Emergency Department. If your culture is positive we will review your current antimicrobial therapy and assess if it needs to be changed. If you receive a call from us you likely have a new prescription for different antibiotic to cover the causative organism. Please return to the emergency department if your symptoms change or worsen. Please follow with your primary care physician for further outpatient evaluation and management. Print Language: Citizen Of [place] Disposition Disposition: Home, Self Care
[2023-12-13] MEDS: Smz/Tmp Ds Tablet 1 TABLET PO (12:33)
[2023-12-13 12:47] VITALS: BP 103/66; PULSE 84; RESP 21; O2SAT 100
[2023-12-13 13:00] VITALS: PULSE 87; RESP 20; O2SAT 99
[2023-12-13 13:32] VITALS: BP 103/66; PULSE 77; RESP 17; TEMP 36.6; O2SAT 97
== END 2023-12-13 13:34 | disposition home or self-care (01) ==
PROVIDERS: Emergency Provider Emergency Medicine; PCP Internal Medicine; Visit Provider Emergency Medicine
DX: J95.02 Infection of tracheostomy stoma (principal); I11.0 Hypertensive heart disease with heart failure; J44.9 Chronic obstructive pulmonary disease, unspecified; Z87.891 Personal history of nicotine dependence; D64.9 Anemia, unspecified; L03.90 Cellulitis, unspecified; E78.5 Hyperlipidemia, unspecified; Z90.49 Acquired absence of other specified parts of digestive tract; G47.33 Obstructive sleep apnea (adult) (pediatric); Z86.73 Personal history of transient ischemic attack (TIA), and cerebral infarction without residual deficits; E03.9 Hypothyroidism, unspecified; Z85.3 Personal history of malignant neoplasm of breast; I25.2 Old myocardial infarction; Z86.718 Personal history of other venous thrombosis and embolism
CPT/HCPCS: 87070; 87077; 87205; 99283

== ENCOUNTER 2023-12-23 20:50 | Emergency (ER) | payer MEDICARE, SELFPAY ==
[2023-12-23 20:52] VITALS: BP 105/38; PULSE 89; RESP 18; TEMP 36.1; O2SAT 75; O2SAT 95
[2023-12-23 21:07] VITALS: BMI 23.5
--- NOTE | 2023-12-23 21:08 | EDS_ITS ---
HPI History of Present Illness Chief Complaint: Wound Check Informant: patient and spouse/S.O. Onset/Context/Timing Onset: Today Narrative Narrative: 68-year-old female brought in by her because they both noticed that her PEG tube site is bleeding. As soon as they noticed it, they came right to the ER, without her oxygen, she is on 3.5 L at home due to severe COPD, she was 75% on room air in triage. Patient states she has no more short of breath than usual, she has a productive cough that is no worse than usual and her sputum is not discolored compared to usual. She denies any fevers or chills. Patient has a trach and PEG, suggest that couple months ago she was admitted to an ICU with severe respiratory failure, and they were thinking that she would not get off the ventilator, so this was done but she has not been using the PEG at all. She has been eating and drinking like normally, and she is looking forward to getting it out. She states she is seeing general surgery Dr. Beth tomorrow to see about doing that. She denies having any abdominal pain, vomiting, or melena lately. She states she really does not look at the PEG ever so she has no idea what it usually looks like. She has a home health nurse who comes periodically and has never said anything about the PEG. When asked about discharge on the dressing, she states she has no idea how long that has been there. She takes no anticoagulants. With regards to her breathing, she states she did a nebulizer treatment at home about an hour and a half ago, she does then throughout the day, they help, and she does not need another treatment right now. [facility] Medical History COPD exacerbation Respiratory failure Hypothyroidism Former smoker BiPAP (biphasic positive airway pressure) dependence On home oxygen therapy Asthma Seizures Stroke/cerebrovascular accident Noncompliance Diastolic CHF History of alcohol abuse Aspiration pneumonia due to gastric secretions Carcinoma in situ of breast Benign neoplasm of colon Takotsubo cardiomyopathy (06/17/21) Ischemic cerebrovascular accident (CVA) (02/06/17) Non-rheumatic mitral regurgitation Anxiety and depression Non-ischemic cardiomyopathy Essential (primary) hypertension Secondary pulmonary arterial hypertension Chronic anemia GERD (gastroesophageal reflux disease) TIO (obstructive sleep apnea) History of non-ST elevation myocardial infarction (NSTEMI) (02/03/17) History of DVT of lower extremity (02/11/17) Insomnia Hyperlipidemia Daytime hypersomnia Hemorrhagic cerebrovascular accident (CVA) (02/09/17) COPD (chronic obstructive pulmonary disease) Home Medications ?Medication ?Instructions ?Recorded ?Last Taken ?Type cholecalciferol (vitamin D3) 25 25 mcg PO DAILY supplement 11/03/20 Unknown History mcg (1,000 unit) tablet (Vitamin D3) pantoprazole 40 mg tablet,delayed 40 mg PO DAILY GERD 11/03/20 11/15/23 History release (Protonix) potassium chloride 20 mEq/15 mL 40 meq (30 mL) G-tube BID #0 mL 07/25/22 11/15/23 Rx oral liquid aripiprazole 2 mg tablet (Abilify) 2 mg PO DAILY mental health 08/25/22 11/15/23 History atorvastatin 40 mg tablet 40 mg PO QHS cholesterol 08/25/22 11/15/23 History metoprolol succinate 25 mg 25 mg PO DAILY blood pressure 08/25/22 11/15/23 History tablet,extended release 24 hr phenytoin 100 mg/4 mL oral 100 mg (4 mL) PO Q8 30 days #360 mL 10/12/22 Unknown Rx suspension duloxetine 30 mg capsule,delayed 30 mg PO DAILY mental health 11/11/22 11/15/23 History release furosemide 20 mg tablet 20 mg PO BIDCM diuretic 11/11/22 11/15/23 History mirtazapine 7.5 mg tablet 7.5 mg PO QHS #30 tabs 11/11/22 11/14/23 Rx albuterol sulfate 2.5 mg/3 mL 2.5 mg (3 mL) inhalation Q2H PRN 06/30/23 11/15/23 Rx (0.083 %) solution for nebulization PRN Dyspnea, wheezing #180 mL albuterol sulfate 90 mcg/actuation 2 inh inhalation Q4H #8.5 grams 06/30/23 11/15/23 Rx aerosol inhaler fluticasone fur. 100 mcg-umeclid 1 inh inhalation DAILY 30 days #60 06/30/23 11/15/23 Rx 62.5 mcg-vilant 25 mcg ea inhalat.powder (Trelegy Ellipta) nystatin 100,000 unit/mL oral 5 ml mucous membrane TID #250 mL 06/30/23 11/15/23 Rx suspension aspirin 81 mg tablet,delayed 81 mg PO DAILY 11/15/23 11/15/23 History release (Adult Aspirin Regimen) escitalopram oxalate 20 mg tablet 20 mg PO DAILY 11/15/23 11/15/23 History hydroxyzine pamoate 25 mg capsule 25 mg PO TID 11/15/23 11/15/23 History ipratropium 0.5 mg-albuterol 3 mg 3 ml inhalation Q6H 11/15/23 11/15/23 History (2.5 mg base)/3 mL nebulization soln zolpidem 10 mg tablet 10 mg PO QHS PRN insomnia 11/15/23 11/14/23 History acetaminophen 325 mg tablet 650 mg (2 x 325 mg) PO Q4H PRN PRN 11/18/23 Unknown Rx Fever, pain 1-04/13 #0 tabs dextromethorphan-guaifenesin 30 2 tab PO BID 7 days #28 tabs 11/18/23 Unknown Rx mg-600 mg tablet extended [id number] hr (Mucinex DM) prednisone 20 mg tablet 40 mg (2 x 20 mg) PO DAILY 5 days 11/18/23 Unknown Rx #10 tabs sennosides 8.6 mg-docusate sodium 2 tab PO BID PRN PRN Constipation 11/18/23 Unknown Rx 50 mg tablet (Stool #0 tabs Softener-Stimulant Laxative) sulfamethoxazole 800 1 tab PO DAILY 14 days #14 tabs 12/13/23 Unknown Rx mg-trimethoprim 160 mg tablet (Bactrim DS) cephalexin 500 mg capsule 500 mg PO TID #21 CAPSULES 12/23/23 Unknown Rx Allergy/AdvReac Type Severity Reaction Status Date / Time tetanus and diphtheria Allergy Hives Verified 12/06/23 17:50 toxoids (tetanus & diphtheria toxoids) Family History Sister Cancer lung Father Cancer lung Mother Cancer lung Surgical History S/P emergency tracheotomy for assistance in breathing History of tracheostomy S/P percutaneous endoscopic gastrostomy (PEG) tube placement History of left heart catheterization (06/17/21) History of bilateral cataract extraction Hx of appendectomy H/O: section History of lumpectomy History of cholecystectomy Social History household members: spouse Smoking Status: Former smoker how long ago did patient quit smokin, 1pk/day second hand exposure: Yes alcohol intake: former substance use type: does not use what type of physical activity do you participate in: walking frequency: daily ROS ROS ED Constitutional Constitutional ED: Denies chills or fever(s) ENT ENT ED: Denies rhinorrhea or sore throat Cardiovascular Cardiovascular: Denies chest pain Respiratory/Chest Respiratory/Chest: Reports as per HPI, cough, dyspnea and sputum Gastrointestinal Gastrointestinal: Reports as per HPI; Denies abdominal pain, melena, nausea or vomiting Integumentary Reports as per HPI and wounds Neurologic Neurologic: Denies headache(s), paresthesias or weakness EXAM Physical Exam Const Vital Signs: 12/23/23 20:52 12/23/23 20:52 12/23/23 21:12 Temperature 96.9 F L Temperature Source Temporal Pulse Rate 89 Respiratory Rate 18 Blood Pressure 105/38 L Blood Pressure Mean 60 Pulse Ox 75 95 Oxygen Delivery Method Room Air Nasal Cannula Nasal Cannula Oxygen Flow Rate (L/min) 6 6 Positive well nourished and well developed General Appearance ED: well developed and NAD Eyes PERRL and EOMs intact bilaterally Neck Neck Narrative: Capped tracheostomy, small amount of mucus on dressing around it which is typical for her. Resp normal respiratory effort Resp Narrative: Prolonged expiratory phase Auscultation: wheezes expiratory wheezes and throughout and diminished lung sounds diffuse (Equal bilaterally) GI GI Narrative: PEG site appears irritated and tender, there is a scant amount of blood that appears to be coming from the excoriated tissue at the site of entry more to the left, there is also some mucousy yellow discharge on the dressing that is present around the hub, but there is no gauze between the abdominal wall and the hub of the PEG. Extremity normal to inspection Neuro oriented x3, CN's II-XII intact bilaterally and no sensory deficits noted Psych mental status grossly normal Skin Skin Narrative: Excoriated irritated wound at PEG site entry see above. No other rashes or wounds. MDM MDM MDM Narrative Medical decision making narrative: I suspect she is having an early PEG site soft tissue infection. There is no active bleeding, there is blood at the site that is tender at the PEG entry and the skin is irritated. I loosened the hub to cleanse it and examine the area more thoroughly, there is no ulcerated area or abscess. I aspirated the PEG itself, there is no blood in the stomach, and it flushes easily. She is seeing surgery tomorrow. I am having nurses place drain gauze beneath the hub to help cushion the area and soak up blood and discharge, placing her on cephalexin, and she is advised with regards to dressing changes and given extra gauze. Patient states that she feels that she is at baseline with regards to her COPD symptoms and her cough. The states that her cough sounds worse. Patient is amenable to a chest x-ray, but she declines a nebulizer treatment. 2 views on my interpretation show chronic COPD but no acute infiltrates. With regards to her hypoxemia, she was off of her oxygen which she understands she cannot do. Nurses were concerned about her low pulse ox for sure, placed her on 6 L nasal cannula. After being observed in the ER for a little while, I moved her oxygen back down to 3.5 L, she is 96% and doing well stable for discharge. Discharge Plan Triage Chief Complaint: Wound Check ED Provider: Yunior Alanis Dx/Rx/DC Orders Clinical Impression: Infection of PEG site, COPD (chronic obstructive pulmonary disease) Instructions: Wound Infection Tx Prescriptions: New cephalexin 500 mg capsule 500 mg PO TID Qty: 21 0RF No Action atorvastatin 40 mg tablet 40 mg PO QHS MDD 40 metoprolol succinate 25 mg tablet extended release 24 hr 25 mg PO DAILY MDD 25 aripiprazole [Abilify] 2 mg tablet 2 mg PO DAILY MDD 2mg albuterol sulfate 90 mcg/actuation HFA aerosol inhaler 2 inh inhalation Q4H Qty: 8.5 11RF albuterol sulfate 2.5 mg /3 mL (0.083 %) solution for nebulization 2.5 mg inhalation Q2H PRN PRN (Reason: Dyspnea, wheezing) Qty: 180 6RF Trelegy Ellipta 100-62.5-25 mcg blister with device 1 inh INHALATION DAILY 30 Days Qty: 60 6RF nystatin 100,000 unit/mL suspension 5 ml mucous membrane TID Qty: 250 1RF Rx Instructions: swish and swallow 5 cc three times per day for 10 days pantoprazole [Protonix] 40 mg Tablet,Delayed Release (Dr/Ec) 40 mg PO DAILY cholecalciferol (vitamin D3) [Vitamin D3] 25 mcg (1,000 unit) Tablet 25 mcg PO DAILY potassium chloride 20 mEq/15 mL Liquid 40 meq G-tube BID Qty: 0 0RF phenytoin 100 mg/4 mL Suspension 100 mg PO Q8 30 Days Qty: 360 2RF Patient Comments: PT NOT SURE IF SHE TAKES THIS OR NOT furosemide 20 mg tablet 20 mg PO BIDCM MDD 40 duloxetine 30 mg capsule,delayed release(DR/EC) 30 mg PO DAILY MDD 60 Patient Comments: PT UNAWARE IF MED IS 30MG OR 60MG mirtazapine 7.5 mg tablet 7.5 mg PO QHS Qty: 30 0RF sulfamethoxazole-trimethoprim [Bactrim DS] 800-160 mg tablet 1 tab PO DAILY 14 Days Qty: 14 0RF aspirin [Adult Aspirin Regimen] 81 mg tablet,delayed release (DR/EC) 81 mg PO DAILY zolpidem 10 mg tablet 10 mg PO QHS PRN (Reason: insomnia) ipratropium-albuterol 0.5 mg-3 mg(2.5 mg base)/3 mL solution for nebulization 3 ml inhalation Q6H Rx Instructions: EVERY 6 HOURS WHILE AWAKE hydroxyzine pamoate 25 mg capsule 25 mg PO TID escitalopram oxalate 20 mg tablet 20 mg PO DAILY acetaminophen 325 mg Tablet 650 mg PO Q4H PRN PRN (Reason: Fever, pain 1-04/13) Qty: 0 0RF sennosides-docusate sodium [Stool Softener-Stimulant Laxat] 8.6-50 mg Tablet 2 tab PO BID PRN PRN (Reason: Constipation) Qty: 0 0RF Mucinex DM 30-600 mg Tablet Extended Release 12 Hr 2 tab PO BID 7 Days Qty: 28 0RF prednisone 20 mg tablet 40 mg PO DAILY 5 Days Qty: 10 0RF Primary Care Provider: Maryam Pineda Referrals: Maryam Pineda MD [Primary Care Provider] - Oscar Hdz MD [Non-Staff] - Keep Marti appointment Print Language: [place] Disposition Disposition: Home, Self Care
--- NOTE | 2023-12-23 21:20 | RAD_ITS ---
STUDY: X-RAY CHEST REASON FOR EXAM: Female, 68 years old. cough/sob/copd TECHNIQUE: PA and lateral COMPARISON: None. FINDINGS: Lungs are mildly hyperinflated but clear.. There is no demonstrated pleural abnormality. Tracheostomy noted within the midline Normal size heart. Normal mediastinum and jacinto. Normal visualized pulmonary arteries. Normal visualized aortic arch and descending thoracic aorta. Normal visualized thoracic spine. Normal visualized ribs, clavicles, and shoulders. There is no demonstrated abnormality of the visualized soft tissue structures of the upper abdomen. RAD/Chest PA and Lateral IMPRESSION: Mild hyperinflation. No acute cardiopulmonary pathology Electronically Signed: Pablo Sheehan MD at 21:46 EDT ,
[2023-12-23 21:48] VITALS: BP 110/60; PULSE 85; RESP 22; TEMP 36.9; O2SAT 99
[2023-12-23] MEDS: Cephalexin 250 MG Capsule 500 MG PO (22:00)
== END 2023-12-23 22:07 | disposition home or self-care (01) ==
PROVIDERS: Emergency Provider Emergency Medicine; PCP Internal Medicine; Visit Provider Emergency Medicine
DX: K94.22 Gastrostomy infection (principal); I11.0 Hypertensive heart disease with heart failure; I50.32 Chronic diastolic (congestive) heart failure; J44.9 Chronic obstructive pulmonary disease, unspecified; Z87.891 Personal history of nicotine dependence; R09.02 Hypoxemia; Z85.3 Personal history of malignant neoplasm of breast; Z86.718 Personal history of other venous thrombosis and embolism; I25.2 Old myocardial infarction; E03.9 Hypothyroidism, unspecified; Z90.49 Acquired absence of other specified parts of digestive tract; E78.5 Hyperlipidemia, unspecified; Z86.73 Personal history of transient ischemic attack (TIA), and cerebral infarction without residual deficits; Z99.81 Dependence on supplemental oxygen; K21.9 Gastro-esophageal reflux disease without esophagitis; G47.33 Obstructive sleep apnea (adult) (pediatric); Y84.9 Medical procedure, unspecified as the cause of abnormal reaction of the patient, or of later complication, without mention of misadventure at the time of the procedure
CPT/HCPCS: 71046; 99283

== ENCOUNTER 2024-01-28 10:45 | Emergency (ER) | payer MEDICARE, SELFPAY ==
[2024-01-28] VITALS (9 sets, daily range): BP systolic 101–163; BP diastolic 42–150; PULSE 81–120; RESP 16–25; TEMP 36–36.5; O2SAT 80–100; BMI 23.4
--- NOTE | 2024-01-28 10:59 | EKG12_ITS ---
Test Reason : SOB Blood Pressure : / mmHG Vent. Rate : 128 BPM Atrial Rate : 128 BPM P-R Int : 120 ms QRS Dur : 078 ms QT Int : 300 ms P-R-T Axes : 079 056 079 degrees QTc Int : 438 ms Sinus tachycardia with Premature ventricular complexes or Fusion complexes Possible Left atrial enlargement Inferior infarct (cited on or before 09-NOV-2022) Abnormal ECG Confirmed by JAZLYN MENDES, GLORIA ([id number]), newspaper editor managing JOANIE COLVIN ([id number]) on 02/01/2024 1:55:12 PM Referred By: ZAHRA Confirmed By:ADITI HOBSON MD
[2024-01-28] MEDS: LORazepam 2 MG/ML Syringe 1 MG IV (11:01)
[2024-01-28 11:14] LABS: Absolute Lymphocyte Count 2.06 X10^3/uL (0.83-4.51); Absolute Neutrophil Count 4.4 X10^3/uL (2.0-7.7); Basophil# 0.04 X10^3/uL; Basophil% 0.5 % (0-1); Eosinophil# 0.11 X10^3/uL; Eosinophils% 1.5 % (0-5); Hematocrit 38.1 % (37-47); Hemoglobin 11.1 g/dL (12.0-15.0); Lymphocyte # 2.06 X10^3/ul (0.83-4.51); Lymphocyte % 28.3 % (19-41); Mean Corp Hgb Conc 29.1 g/dL (32-36); Mean Corpuscular Hgb 27.1 pg (27.0-32.0); Mean Corpuscular Volume 93.2 fL (81-99); Mean Platelet Vol. 10.2 fl (6.2-12.0); Monocyte# 0.69 X10^3/uL; Monocyte% 9.5 % (0-10); NRBC Flagged by Analyzer 0 % (0-5); Neutrophil # 4.37 X10^3/uL (2.7-7.7); Neutrophil % 59.9 % (47-70); Platelet Count 215 K/mm3 (150-450); RBC Distribution Width CV 14.2 % (11.6-14.6); RBC Distribution Width SD 48.5 fl (35.1-43.9); Red Blood Count 4.09 M/mm3 (4.2-5.4); White Blood Count 7.3 K/mm3 (4.4-11.0)
[2024-01-28 11:26] LABS: Prothrombin Time (Protime)PT. 13.1 SECONDS (11.7-14.9)
[2024-01-28 11:27] LABS: Partial Thromboplast Time 27.7 Seconds (24.1-36.2)
[2024-01-28 11:32] LABS: Anion Gap -1 (5-15); BUN 16 mg/dL (7-18); BUN/Creat Ratio 17.1 RATIO (10-20); Calcium,Total 9.6 mg/dL (8.5-10.1); Chloride 101 mmol/L (98-107); Creatinine, Serum 0.93 mg/dL (0.55-1.02); EST Glomerular Filtration Rate 63 mL/min (>60); Est Glom Filt Rate - Afr Amer 77 mL/min (>60); Estimated Creatinine Clearance 47.23 ml/min; Glucose 154 mg/dL (74-106); Potassium 4.6 mmol/L (3.5-5.1); Sodium Level 139 mmol/L (136-145)
--- NOTE | 2024-01-28 11:35 | RAD_ITS ---
STUDY: X-RAY CHEST REASON FOR EXAM: Female, 68 years old. sob TECHNIQUE: Single AP portable view of the chest. COMPARISON: Comparison is made with prior study December 23, 2023. FINDINGS: EKG electrodes are seen. A tracheostomy tube is seen with the tip at 4 cm proximal to the claude. Hyperinflation. The lungs are clear. There is no demonstrated pleural abnormality. Normal size heart. Normal mediastinum and jacinto. Normal visualized pulmonary arteries. Normal visualized aortic arch and descending thoracic aorta. Normal visualized thoracic spine. Normal visualized ribs, clavicles, and shoulders. There is no demonstrated abnormality of the visualized soft tissue structures of the upper abdomen. RAD/Chest 1 View (Portable) IMPRESSION: Hyperinflation. No acute abnormality is seen. Electronically Signed: Vinny Mcghee MD at 11:59 EDT ,
--- NOTE | 2024-01-28 11:36 | EDS_ITS ---
HPI History of Present Illness Chief Complaint: Seizure Informant: family and EMS Narrative Narrative: Patient presents via EMS secondary to seizure. She has a history of seizure disorder as well as a brain aneurysm. She has had both hemorrhagic and ischemic strokes. EMS notes patient seemed to be postictal but was A&O x 2 for them. Shortly after arrival to the emergency room patient developed shaking-like activity and was given 0.5 mg of IV Ativan. Patient's records were reviewed. She had been admitted to [facility] in [place] earlier this spring with status epilepticus. She required trach and PEG placement as they had difficulty getting her off of the ventilator. Her PEG tube was recently removed but she does still have her trach. [facility] Medical History COPD exacerbation Respiratory failure Hypothyroidism Former smoker BiPAP (biphasic positive airway pressure) dependence On home oxygen therapy Asthma Seizures Stroke/cerebrovascular accident Noncompliance Diastolic CHF History of alcohol abuse Aspiration pneumonia due to gastric secretions Carcinoma in situ of breast Benign neoplasm of colon Takotsubo cardiomyopathy (06/17/21) Ischemic cerebrovascular accident (CVA) (02/06/17) Non-rheumatic mitral regurgitation Anxiety and depression Non-ischemic cardiomyopathy Essential (primary) hypertension Secondary pulmonary arterial hypertension Chronic anemia GERD (gastroesophageal reflux disease) TIO (obstructive sleep apnea) History of non-ST elevation myocardial infarction (NSTEMI) (02/03/17) History of DVT of lower extremity (02/11/17) Insomnia Hyperlipidemia Daytime hypersomnia Hemorrhagic cerebrovascular accident (CVA) (02/09/17) COPD (chronic obstructive pulmonary disease) Home Medications ?Medication ?Instructions ?Recorded ?Last Taken ?Type cholecalciferol (vitamin D3) 25 25 mcg PO DAILY supplement 11/03/20 Unknown History mcg (1,000 unit) tablet (Vitamin D3) pantoprazole 40 mg tablet,delayed 40 mg PO DAILY GERD 11/03/20 11/15/23 History release (Protonix) aripiprazole 2 mg tablet (Abilify) 2 mg PO DAILY mental health 08/25/22 11/15/23 History atorvastatin 40 mg tablet 40 mg PO QHS cholesterol 08/25/22 11/15/23 History metoprolol succinate 25 mg 25 mg PO DAILY blood pressure 08/25/22 11/15/23 History tablet,extended release 24 hr phenytoin 100 mg/4 mL oral 100 mg (4 mL) PO Q8 30 days #360 mL 10/12/22 Unknown Rx suspension duloxetine 30 mg capsule,delayed 30 mg PO DAILY mental health 11/11/22 11/15/23 History release furosemide 20 mg tablet 20 mg PO BIDCM diuretic 11/11/22 11/15/23 History mirtazapine 7.5 mg tablet 7.5 mg PO QHS #30 tabs 11/11/22 11/14/23 Rx albuterol sulfate 2.5 mg/3 mL 2.5 mg (3 mL) inhalation Q2H PRN 06/30/23 11/15/23 Rx (0.083 %) solution for nebulization PRN Dyspnea, wheezing #180 mL albuterol sulfate 90 mcg/actuation 2 inh inhalation Q4H #8.5 grams 06/30/23 11/15/23 Rx aerosol inhaler fluticasone fur. 100 mcg-umeclid 1 inh inhalation DAILY 30 days #60 06/30/23 11/15/23 Rx 62.5 mcg-vilant 25 mcg ea inhalat.powder (Trelegy Ellipta) nystatin 100,000 unit/mL oral 5 ml mucous membrane TID #250 mL 06/30/23 11/15/23 Rx suspension aspirin 81 mg tablet,delayed 81 mg PO DAILY 11/15/23 11/15/23 History release (Adult Aspirin Regimen) escitalopram oxalate 20 mg tablet 20 mg PO DAILY 11/15/23 11/15/23 History hydroxyzine pamoate 25 mg capsule 25 mg PO TID 11/15/23 11/15/23 History ipratropium 0.5 mg-albuterol 3 mg 3 ml inhalation Q6H 11/15/23 11/15/23 History (2.5 mg base)/3 mL nebulization soln zolpidem 10 mg tablet 10 mg PO QHS PRN insomnia 11/15/23 11/14/23 History acetaminophen 325 mg tablet 650 mg (2 x 325 mg) PO Q4H PRN PRN 11/18/23 Unknown Rx Fever, pain 1-04/13 #0 tabs dextromethorphan-guaifenesin 30 2 tab PO BID 7 days #28 tabs 11/18/23 Unknown Rx mg-600 mg tablet extended [id number] hr (Mucinex DM) prednisone 20 mg tablet 40 mg (2 x 20 mg) PO DAILY 5 days 11/18/23 Unknown Rx #10 tabs sennosides 8.6 mg-docusate sodium 2 tab PO BID PRN PRN Constipation 11/18/23 Unknown Rx 50 mg tablet (Stool #0 tabs Softener-Stimulant Laxative) sulfamethoxazole 800 1 tab PO DAILY 14 days #14 tabs 12/13/23 Unknown Rx mg-trimethoprim 160 mg tablet (Bactrim DS) cephalexin 500 mg capsule 500 mg PO TID #21 CAPSULES 12/23/23 Unknown Rx potassium chloride 20 mEq 20 meq PO BID 01/28/24 Unknown History tablet,extended release(part/cryst) (Klor-Con M) Allergy/AdvReac Type Severity Reaction Status Date / Time tetanus and diphtheria Allergy Hives Verified 01/28/24 11:22 toxoids (tetanus & diphtheria toxoids) Family History Sister Cancer lung Father Cancer lung Mother Cancer lung Surgical History S/P emergency tracheotomy for assistance in breathing History of tracheostomy S/P percutaneous endoscopic gastrostomy (PEG) tube placement History of left heart catheterization (06/17/21) History of bilateral cataract extraction Hx of appendectomy H/O: section History of lumpectomy History of cholecystectomy Social History household members: spouse Smoking Status: Former smoker how long ago did patient quit smokin, 1pk/day second hand exposure: Yes alcohol intake: former substance use type: does not use what type of physical activity do you participate in: walking frequency: daily EXAM Physical Exam Const Vital Signs: 01/28/24 10:46 01/28/24 10:55 01/28/24 10:55 Temperature 96.8 F L Temperature Source Temporal Pulse Rate 120 H Respiratory Rate 25 H Blood Pressure 163/150 H Blood Pressure Mean 154 Pulse Ox 100 80 99 Oxygen Delivery Method Non-Rebreather Room Air Non-Rebreather Oxygen Flow Rate (L/min) 6 6 01/28/24 11:45 01/28/24 12:00 01/28/24 12:00 Temperature Temperature Source Pulse Rate 90 90 88 Respiratory Rate 20 H 22 H 18 Blood Pressure 101/42 L 101/42 L 101/42 L Blood Pressure Mean 61 61 61 Pulse Ox 96 97 96 Oxygen Delivery Method Nasal Cannula Nasal Cannula High Flow Oxygen Flow Rate (L/min) 3 3 6 01/28/24 13:00 01/28/24 14:00 01/28/24 15:00 Temperature Temperature Source Pulse Rate 87 81 91 Respiratory Rate 21 H 16 19 H Blood Pressure 121/50 H 108/47 L 110/49 L Blood Pressure Mean 73 67 69 Pulse Ox 100 98 99 Oxygen Delivery Method Nasal Cannula Nasal Cannula Nasal Cannula Oxygen Flow Rate (L/min) 3 6 3 Positive well nourished and well developed General Appearance ED: well developed HEENT HEENT Narrative: Tracheostomy in place with moist secretions. Chest Wall inspection of chest normal and palpation of chest normal Resp Resp Narrative: Diminished breath sounds bilateral bases. Cardio Rate: tachycardic GI non-tender Palpation: soft Extremity normal to inspection Neuro Neuro Narrative: Patient initially with seizure-like activity my initial evaluation. On repeat evaluation she appears postictal and is resting comfortably. She is noted to be spontaneously moving all 4 extremities. Psych mental status grossly normal Skin no rashes or lesions noted MDM MDM MDM Narrative Medical decision making narrative: IV line established on arrival and patient given 0.5 mg of IV Ativan. Labwork obtained to evaluate for leukocytosis, anemia, and electrolyte derangement. EKG obtained to evaluate for cardiac arrhythmia/ischemia. CT scan of the head will be obtained along with CTA of the head and neck to evaluate for acute bleed or recurrent aneurysm. History & Record Review Discussion w/independent historian: Family Lab Data Attestation: I reviewed the patient's lab results. Labs: Laboratory Results - last 24 hr 01/28/24 11:02 WBC 7.3 RBC 4.09 L Hgb 11.1 L Hct 38.1 MCV 93.2 MCH 27.1 MCHC 29.1 L RDW Std Deviation 48.5 H RDW Coeff of [place] 14.2 Plt Count 215 MPV 10.2 Immature Gran % (Auto) 0.300 Neut % (Auto) 59.9 Lymph % (Auto) 28.3 [place] % (Auto) 9.5 Eos % (Auto) 1.5 Baso % (Auto) 0.5 Absolute Neuts (auto) 4.4 Absolute Lymphs (auto) 2.06 Nucleated RBC % 0 PT 13.1 INR 1.0 APTT 27.7 Sodium 139 Potassium 4.6 Chloride 101 Carbon Dioxide 39.0 H Anion Gap -1 L BUN 16 Creatinine 0.93 Estim Creat Clear Calc 47.23 Est GFR (MDRD) Af Amer 77 Est GFR (MDRD) Non-Af 63 BUN/Creatinine Ratio 17.1 Glucose 154 H Calcium 9.6 Radiography Chest X-Ray - ED: 1 View (Tracheostomy in place. Chronic changes. No obvious infiltrate.) and Read by ED Physician Diagnostic Testing: Clinical Impression(s) from Imaging Studies Chest X-Ray 01/28/24 11:35 IMPRESSION: Hyperinflation. No acute abnormality is seen. Electronically Signed: Vinny Mcghee MD at 11:59 EDT , Head CTA 01/28/24 12:06 IMPRESSION: Normal [place] without a demonstrated aneurysm or hemodynamically significant stenosis. Stable cerebral atrophy with focal areas of encephalomalacia involving the posterior medial aspect of the right occipital lobe as well as the posterior aspect of the left parietal-occipital lobes. Electronically Signed: Vinny Mcghee MD at 12:48 EDT , EKG Initial EKG: Attestation: I personally reviewed and interpreted this EKG as follows: Interpretation: Sinus Tachycardia (Sinus tachycardia at 128. Baseline artifact secondary to seizure-like activity. No obvious ischemia.) Treatment and Re-Evaluation :: CBC was a white count of 7.3 with normal differential. Hemoglobin is 11.1. Coags are unremarkable. Chemistry studies reveal a bicarb of 39 which appears consistent with the patient's baseline. Renal function is normal. Glucose is 154. Dilantin level was ordered, however is a send out and I do not have these results back. EKG is sinus tachycardia with baseline artifact secondary to seizure-like activity. No obvious ischemia. Portable chest x-ray per my interpretation reveals tracheostomy to be in place. Chronic changes appreciated with no obvious infiltrate per my interpretation. Radiology interpretation reviewed and agrees. CTA of the head obtained and reveals no evidence of bleed, no evidence of aneurysm. Stable cerebral atrophy with focal areas of encephalomalacia are noted. Patient has had no further seizure-like activity here. Patient is resting with her eyes closed. When I checked her pulses in her feet she will kick each foot to make my hand move. Otherwise she is not opening her eyes or speaking at this time. Addendum: Prior to the hospitalist calling back, patient did have another generalized tonic-clonic seizure. She is given another 0.5 mg of IV Ativan. She is also loaded with Keppra. Family is now at bedside to speak to. They state that one of the hospitals in [place] had stopped her Dilantin and she is not currently on any antiepileptic medication. I spoke with educational administration teacher at [facility]. Patient has been accepted for transfer to their ER. They will evaluate her at that time and determine whether she needs to go to the ICU or is more stable for the floor. Discharge Plan Triage Chief Complaint: Seizure ED Provider: Jackie Figueroa Dx/Rx/DC Orders Clinical Impression: Status epilepticus Prescriptions: No Action atorvastatin 40 mg tablet 40 mg PO QHS MDD 40 metoprolol succinate 25 mg tablet extended release 24 hr 25 mg PO DAILY MDD 25 aripiprazole [Abilify] 2 mg tablet 2 mg PO DAILY MDD 2mg albuterol sulfate 90 mcg/actuation HFA aerosol inhaler 2 inh inhalation Q4H Qty: 8.5 11RF albuterol sulfate 2.5 mg /3 mL (0.083 %) solution for nebulization 2.5 mg inhalation Q2H PRN PRN (Reason: Dyspnea, wheezing) Qty: 180 6RF Trelegy Ellipta 100-62.5-25 mcg blister with device 1 inh INHALATION DAILY 30 Days Qty: 60 6RF nystatin 100,000 unit/mL suspension 5 ml mucous membrane TID Qty: 250 1RF Rx Instructions: swish and swallow 5 cc three times per day for 10 days pantoprazole [Protonix] 40 mg Tablet,Delayed Release (Dr/Ec) 40 mg PO DAILY cholecalciferol (vitamin D3) [Vitamin D3] 25 mcg (1,000 unit) Tablet 25 mcg PO DAILY phenytoin 100 mg/4 mL Suspension 100 mg PO Q8 30 Days Qty: 360 2RF Patient Comments: PT NOT SURE IF SHE TAKES THIS OR NOT furosemide 20 mg tablet 20 mg PO BIDCM MDD 40 duloxetine 30 mg capsule,delayed release(DR/EC) 30 mg PO DAILY MDD 60 Patient Comments: PT UNAWARE IF MED IS 30MG OR 60MG mirtazapine 7.5 mg tablet 7.5 mg PO QHS Qty: 30 0RF sulfamethoxazole-trimethoprim [Bactrim DS] 800-160 mg tablet 1 tab PO DAILY 14 Days Qty: 14 0RF potassium chloride [Klor-Con M20] 20 mEq tablet,ER particles/crystals 20 meq PO BID aspirin [Adult Aspirin Regimen] 81 mg tablet,delayed release (DR/EC) 81 mg PO DAILY zolpidem 10 mg tablet 10 mg PO QHS PRN (Reason: insomnia) ipratropium-albuterol 0.5 mg-3 mg(2.5 mg base)/3 mL solution for nebulization 3 ml inhalation Q6H Rx Instructions: EVERY 6 HOURS WHILE AWAKE hydroxyzine pamoate 25 mg capsule 25 mg PO TID escitalopram oxalate 20 mg tablet 20 mg PO DAILY acetaminophen 325 mg Tablet 650 mg PO Q4H PRN PRN (Reason: Fever, pain 1-04/13) Qty: 0 0RF sennosides-docusate sodium [Stool Softener-Stimulant Laxat] 8.6-50 mg Tablet 2 tab PO BID PRN PRN (Reason: Constipation) Qty: 0 0RF Mucinex DM 30-600 mg Tablet Extended Release 12 Hr 2 tab PO BID 7 Days Qty: 28 0RF prednisone 20 mg tablet 40 mg PO DAILY 5 Days Qty: 10 0RF cephalexin 500 mg capsule 500 mg PO TID Qty: 21 0RF Primary Care Provider: Maryam Pineda Referrals: Maryam Pineda MD [Primary Care Provider] - Print Language: [place] Disposition Disposition: Acute Care Hospital Discharge Location: [facility]
--- NOTE | 2024-01-28 12:06 | CT_ITS ---
STUDY: CTA OF THE BRAIN REASON FOR EXAM: Female, 68 years old. Seizure - H/O aneurysm RADIATION DOSAGE (If Supplied By Facility): CTDIvol = ( 40.68 ) mGy, DLP = ( 1965.54 ) mGycm TECHNIQUE: CT angiography was performed with a multi-detector CT scanner. Data acquisition was obtained from the skull base through the vertex following intravenous administration of IV 100mL [id number]-[id number]. MIP images were reconstructed from the axial data set. Post-processing of the angiographic images was performed, with multiplanar reformation and 3D reconstruction. Individualized dose optimization techniques were used for this CT. COMPARISON: Comparison is made with prior study dated September 26, 2023. FINDINGS: Once again, the patient is status post craniotomy in the right temporal parietal bones. Normal bilateral petrous carotid arteries. There is calcified plaque formation of the right cavernous carotid artery, without a cross-sectional luminal stenosis. There is calcified plaque formation of the left cavernous carotid artery, without a cross-sectional luminal stenosis. Normal right A1 segments of the anterior cerebral artery. Normal left A1 segments of the anterior cerebral artery. Normal intact anterior communicating artery (ACOM). Normal bilateral A2 segments of the anterior cerebral arteries. Normal right M1 and M2 segments of the middle cerebral arteries, with a normal M1 bifurcation. Normal left M1 and M2 segments of the middle cerebral arteries, with a normal M1 bifurcation. Normal right posterior communicating artery (PCOM). Normal left posterior communicating artery (PCOM). Normal bilateral vertebral arteries. Normal basilar artery with a normal basilar bifurcation. The visualized bilateral superior cerebellar (SCA) arteries are normal. Normal bilateral P1, P2 and visualized P3 segments of the posterior cerebral arteries. There is no demonstrated aneurysm of the [place]. There is evidence of cerebral atrophy. Stable encephalomalacia in the posterior medial aspect of the right occipital lobe as well as in the posterior aspect of the left parietal occipital lobes. CT/CTA Head W/WO Contrast IMPRESSION: Normal [place] without a demonstrated aneurysm or hemodynamically significant stenosis. Stable cerebral atrophy with focal areas of encephalomalacia involving the posterior medial aspect of the right occipital lobe as well as the posterior aspect of the left parietal-occipital lobes. Electronically Signed: Vinny Mcghee MD at 12:48 EDT ,
[2024-01-28] MEDS: 0.9% Normal Saline (500mL Bag) 250 ML 999 ML IV (13:55)
[2024-01-28] MEDS: LORazepam 2 MG/ML Syringe 0.5 MG IV (14:31)
--- NOTE | 2024-01-28 14:34 | PCM.HP.STD ---
HPI - General General Date of Admission: 01/28/24 Date of Service: 01/28/24 Chief Complaint: Breakthrough seizures HPI Narrative The patient is a 68 y/o F w/ PMHx: Seizure disorder, COPD w/ Chronic Hypoxic Respiratory Failure (2L-5L NC) s/p tracheostomy (07/10/22), HFpEF w/ Hx Takotsubo cardiomyopathy, Hx CVA w/ Chronic dysphagia with aspiration history on altered diet w/ prior PEG tube (07/09/22) w/ also known 01/2022 Hemorrhagic CVA with transition to [facility] with surgical intervention, Seizure disorder, GERD, Chronic normocytic anemia, Chronc thrombocytopenia, HTN, HLD, TIO, Chronic Depression and Anxiety, History of Breast CA, Former EtOH Abuse, recent history of [facility] after admission earlier in the spring 2023 secondary to status epilepticus requiring at that time trach and PEG secondary to difficulty transitioning off ventilator with PEG tube recently removed the trach still in place who presents to the [facility] [place] ED on 01/28/24 with history of recurrent breakthrough seizures with seizure onset at home with postictal phase upon EMS arrival with noted ANO x 2 per the report however again upon ED presentation patient had recurrent seizure activity witnessed per ED physician. Following seizure activity patient is maintaining airway and resting but is not opening her eyes or interacting with staff. She will respond to some stimuli when pulses and extremities are touched. Unfortunately patient seized again in the ED thus now 3 seizures. Workup in the ED included T96.8, heart rate 120, BP 163/150, respiratory rate 25, initially 100% on a nonrebreather 6 L with most recent repeat assessment heart rate 81, BP 108/47, respiratory rate 16, 98% on 6 L nasal cannula, CBC with WC 7.3, 11.1, MCV 93.2, platelet 250 without marked shift, unremarkable coags, BMP with initially carbon dioxide 39, glucose 154 otherwise not marked appearing, phenytoin level pending upon evaluation, chest x-ray with chronic changes with no acute cardiopulmonary findings otherwise, CTA head with status post craniotomy in the right temporal parietal bones, normal [place] without any demonstrated aneurysm or hemodynamically significant stenosis, stable cerebral atrophy with focal areas of encephalomalacia involving the posterior medial aspect of the right occipital lobe as well as the posterior aspect of the left parietal occipital lobes, EKG with sinus tachycardia with difficulty given baseline artifact secondary to seizure-like activity with no obvious evidence of acute ischemia. In the ED patient administered Keppra 1000 mg load x 1 as well as a total of Ativan 1.5 mg IV. Discussed patient with Dr. Marie given serial seizures and at this time patient instead of being admitted will be transferred to tertiary facility where she may be evaluated by neurology directly and may need to be considered for neuro ICU. From talking with family who is present in the room it sounds as though patient may have been taken off of her antiepileptic medications while at [facility] approximately 2 to 3 months prior but clarifying medications further. [facility] Medical History Hypothyroidism Former smoker BiPAP (biphasic positive airway pressure) dependence On home oxygen therapy Asthma Seizures Stroke/cerebrovascular accident Noncompliance Diastolic CHF History of alcohol abuse Aspiration pneumonia due to gastric secretions Carcinoma in situ of breast Benign neoplasm of colon Takotsubo cardiomyopathy (06/17/21) Ischemic cerebrovascular accident (CVA) (02/06/17) Non-rheumatic mitral regurgitation Anxiety and depression Non-ischemic cardiomyopathy Essential (primary) hypertension Secondary pulmonary arterial hypertension Chronic anemia GERD (gastroesophageal reflux disease) TIO (obstructive sleep apnea) History of non-ST elevation myocardial infarction (NSTEMI) (02/03/17) History of DVT of lower extremity (02/11/17) Insomnia Hyperlipidemia Daytime hypersomnia Hemorrhagic cerebrovascular accident (CVA) (02/09/17) COPD (chronic obstructive pulmonary disease) Home Medications ?Medication ?Instructions ?Recorded ?Last Taken ?Type cholecalciferol (vitamin D3) 25 25 mcg PO DAILY supplement 11/03/20 Unknown History mcg (1,000 unit) tablet (Vitamin D3) pantoprazole 40 mg tablet,delayed 40 mg PO DAILY GERD 11/03/20 11/15/23 History release (Protonix) aripiprazole 2 mg tablet (Abilify) 2 mg PO DAILY mental health 08/25/22 11/15/23 History atorvastatin 40 mg tablet 40 mg PO QHS cholesterol 08/25/22 11/15/23 History metoprolol succinate 25 mg 25 mg PO DAILY blood pressure 08/25/22 11/15/23 History tablet,extended release 24 hr phenytoin 100 mg/4 mL oral 100 mg (4 mL) PO Q8 30 days #360 mL 10/12/22 Unknown Rx suspension duloxetine 30 mg capsule,delayed 30 mg PO DAILY mental health 11/11/22 11/15/23 History release furosemide 20 mg tablet 20 mg PO BIDCM diuretic 11/11/22 11/15/23 History mirtazapine 7.5 mg tablet 7.5 mg PO QHS #30 tabs 11/11/22 11/14/23 Rx albuterol sulfate 2.5 mg/3 mL 2.5 mg (3 mL) inhalation Q2H PRN 06/30/23 11/15/23 Rx (0.083 %) solution for nebulization PRN Dyspnea, wheezing #180 mL albuterol sulfate 90 mcg/actuation 2 inh inhalation Q4H #8.5 grams 06/30/23 11/15/23 Rx aerosol inhaler fluticasone fur. 100 mcg-umeclid 1 inh inhalation DAILY 30 days #60 06/30/23 11/15/23 Rx 62.5 mcg-vilant 25 mcg ea inhalat.powder (Trelegy Ellipta) nystatin 100,000 unit/mL oral 5 ml mucous membrane TID #250 mL 06/30/23 11/15/23 Rx suspension aspirin 81 mg tablet,delayed 81 mg PO DAILY 11/15/23 11/15/23 History release (Adult Aspirin Regimen) escitalopram oxalate 20 mg tablet 20 mg PO DAILY 11/15/23 11/15/23 History hydroxyzine pamoate 25 mg capsule 25 mg PO TID 11/15/23 11/15/23 History ipratropium 0.5 mg-albuterol 3 mg 3 ml inhalation Q6H 11/15/23 11/15/23 History (2.5 mg base)/3 mL nebulization soln zolpidem 10 mg tablet 10 mg PO QHS PRN insomnia 11/15/23 11/14/23 History acetaminophen 325 mg tablet 650 mg (2 x 325 mg) PO Q4H PRN PRN 11/18/23 Unknown Rx Fever, pain 1-04/13 #0 tabs dextromethorphan-guaifenesin 30 2 tab PO BID 7 days #28 tabs 11/18/23 Unknown Rx mg-600 mg tablet extended [id number] hr (Mucinex DM) prednisone 20 mg tablet 40 mg (2 x 20 mg) PO DAILY 5 days 11/18/23 Unknown Rx #10 tabs sennosides 8.6 mg-docusate sodium 2 tab PO BID PRN PRN Constipation 11/18/23 Unknown Rx 50 mg tablet (Stool #0 tabs Softener-Stimulant Laxative) sulfamethoxazole 800 1 tab PO DAILY 14 days #14 tabs 12/13/23 Unknown Rx mg-trimethoprim 160 mg tablet (Bactrim DS) cephalexin 500 mg capsule 500 mg PO TID #21 CAPSULES 12/23/23 Unknown Rx potassium chloride 20 mEq 20 meq PO BID 01/28/24 Unknown History tablet,extended release(part/cryst) (Klor-Con M) Allergy/AdvReac Type Severity Reaction Status Date / Time tetanus and diphtheria Allergy Hives Verified 01/28/24 11:22 toxoids (tetanus & diphtheria toxoids) Family History Sister Cancer lung Father Cancer lung Mother Cancer lung Surgical History S/P emergency tracheotomy for assistance in breathing History of tracheostomy S/P percutaneous endoscopic gastrostomy (PEG) tube placement History of left heart catheterization (06/17/21) History of bilateral cataract extraction Hx of appendectomy H/O: section History of lumpectomy History of cholecystectomy Social History household members: spouse Smoking Status: Former smoker how long ago did patient quit smokin, 1pk/day second hand exposure: Yes alcohol intake: former substance use type: does not use what type of physical activity do you participate in: walking frequency: daily ROS Review of Systems ROS Unobtainable: due to encephalopathy and due to mental condition Vital Signs Vital Signs Vital Signs: 01/28/24 10:46 01/28/24 10:55 01/28/24 10:55 Temperature 96.8 F L Temperature Source Temporal Pulse Rate 120 H Respiratory Rate 25 H Blood Pressure 163/150 H Blood Pressure Mean 154 Pulse Ox 100 80 99 Oxygen Delivery Method Non-Rebreather Room Air Non-Rebreather Oxygen Flow Rate (L/min) 6 6 01/28/24 11:45 01/28/24 12:00 01/28/24 12:00 Temperature Temperature Source Pulse Rate 90 90 88 Respiratory Rate 20 H 22 H 18 Blood Pressure 101/42 L 101/42 L 101/42 L Blood Pressure Mean 61 61 61 Pulse Ox 96 97 96 Oxygen Delivery Method Nasal Cannula Nasal Cannula High Flow Oxygen Flow Rate (L/min) 3 3 6 01/28/24 13:00 01/28/24 14:00 Temperature Temperature Source Pulse Rate 87 81 Respiratory Rate 21 H 16 Blood Pressure 121/50 H 108/47 L Blood Pressure Mean 73 67 Pulse Ox 100 98 Oxygen Delivery Method Nasal Cannula Nasal Cannula Oxygen Flow Rate (L/min) 3 6 Weight Weight: 132 lb 4.438 oz Body Mass Index (BMI) 23.4 Physical Exam Narrative Physical Examination: General: Patient very minimally awakens to stimuli, not alert, not answering any questions, remains postictal/encephalopathic, seated upright in ED bed, currently no seizure activity noted. Skin: Normal color, normal turgor, no icterus, no cyanosis except occasional staged ecchymoses, abrasion, mild discharge from trach site. HEENT: AT/NC, EOM unable to be assessed, PERRLA, dry MM, trach in place, see skin, no carotid bruits or JVD noted. Lungs: Diminished, greater bases, mildly increased respiratory rate but no distress, no rales, wheezing or rhonchi. Heart: Currently regular rate and rhythm; no gallop, rub audible. Abdomen: Soft, NTTP/no grimacing with palpation, ND, hyperactive BS, no appreciated HSM. Extremities: No cyanosis, no clubbing, no significant peripheral edema. Neurological: Patient very minimally awakens to stimuli, not alert, not answering any questions, remains postictal/encephalopathic, seated upright in ED bed, currently no seizure activity noted, cognitive function not baseline intact; pupils equally reactive to light and accommodation, cranial nerves difficult to evaluate given postictal status, will spontaneously occasional move extremities but not purposefully, strength severely global decreased secondary to acute presentation. Psychiatric: Affect appears flat, lethargic, no acute evidence of depressive or anxiety feelings but does have underlying history. Results Lab / Micro Data 01/28/24 11:02 01/28/24 11:02 Labs: Laboratory Results - last 24 hr 01/28/24 11:02: WBC 7.3, RBC 4.09 L, Hgb 11.1 L, Hct 38.1, MCV 93.2, MCH 27.1, MCHC 29.1 L, RDW Std Deviation 48.5 H, RDW Coeff of Deonte 14.2, Plt Count 215, MPV 10.2, Immature Gran % (Auto) 0.300, Neut % (Auto) 59.9, Lymph % (Auto) 28.3, Ransom % (Auto) 9.5, Eos % (Auto) 1.5, Baso % (Auto) 0.5, Absolute Neuts (auto) 4.4, Absolute Lymphs (auto) 2.06, Nucleated RBC % 0, PT 13.1, INR 1.0, APTT 27.7, Sodium 139, Potassium 4.6, Chloride 101, Carbon Dioxide 39.0 H, Anion Gap -1 L, BUN 16, Creatinine 0.93, Estim Creat Clear Calc 47.23, Est GFR (MDRD) Af Amer 77, Est GFR (MDRD) Non-Af 63, BUN/Creatinine Ratio 17.1, Glucose 154 H, Calcium 9.6 Imaging Radiology Impression Chest X-Ray 01/28/24 11:35 IMPRESSION: Hyperinflation. No acute abnormality is seen. Electronically Signed: Vinny Mcghee MD at 11:59 EDT , Head CTA 01/28/24 12:06 IMPRESSION: Normal [place] without a demonstrated aneurysm or hemodynamically significant stenosis. Stable cerebral atrophy with focal areas of encephalomalacia involving the posterior medial aspect of the right occipital lobe as well as the posterior aspect of the left parietal-occipital lobes. Electronically Signed: Vinny Mcghee MD at 12:48 EDT , Assessment & Plan Assessment/Plan (1) Status epilepticus: PLAN: Plan The patient is a 68 y/o F w/ PMHx: Seizure disorder, COPD w/ Chronic Hypoxic Respiratory Failure (2L-5L NC) s/p tracheostomy (07/10/22), HFpEF w/ Hx Takotsubo cardiomyopathy, Hx CVA w/ Chronic dysphagia with aspiration history on altered diet w/ prior PEG tube (07/09/22) w/ also known 01/2022 Hemorrhagic CVA with transition to [facility] with surgical intervention, Seizure disorder, GERD, Chronic normocytic anemia, Chronc thrombocytopenia, HTN, HLD, TIO, Chronic Depression and Anxiety, History of Breast CA, Former EtOH Abuse, recent history of [facility] after admission earlier in the spring 2023 secondary to status epilepticus requiring at that time trach and PEG secondary to difficulty transitioning off ventilator with PEG tube recently removed the trach still in place who presents to the [facility] ED on 01/28/24 with history of recurrent breakthrough seizures with seizure onset at home with postictal phase upon EMS arrival with noted ANO x 2 per the report however again upon ED presentation patient had recurrent seizure activity witnessed per ED physician with then recurrent seizure activity in the ED. #1. Acute Encephalopathy secondary to Acute Recurrent Seizure Activity/Status epilepticus, suspect primarily secondary to Underlying notable prior CVA history but also currently suspect she has not been on her AED regimen: If patient does not obtain transfer bed in a timely manner would then for patient safety plan to admit to the ICU with ICU consultation, maintain on seizure precautions, continue IV keppra with load administered in the ED with PRN IV ativan and if any further seizure activity load with dilantin and maintain also on that regimen, would also request Neurology consultation, maintain NPO status, aspiration/seizure precautions. Additionally underlying history: #2. Hx Takotsubo cardiomyopathy, HFpEF: 10/09/2022 echocardiogram with LVEF 55%, apical hypokinesis, LA mildly enlarged, moderate MVI. Given unsafe oral intake would transition to [place] ASA, hold oral HTN regimen, transition to IV version as able and needed. #3. Hypertension: Holding oral regimen as noted, PRN IV hydralazine. #4. Hyperlipidemia: Holding oral statin therapy. #5. Hx CVA, most recently Hx Hemorrhagic CVA: Patient with prior history of strokes including 01/2022 hemorrhagic stroke requiring transfer to [facility] and intervention at that time. Will transition to [place] ASA, holding statin and oral HTN regimen temporarily with IV transition as able as noted. #6. Hx VTE: Previous history DVT, not currently chronically anticoagulated. #7. Chronic anemia, normocytic current admission: Admission hemoglobin 11.1, MCV 93.2, baseline hemoglobin primarily 9-11, will continue to trend CBC. #8. Chronic thrombocytopenia: Unclear exact etiology but does have history of previous alcohol abuse, admission platelets 215, improved since previously as primary baseline approximate 1 year prior had been more so 120-150, continue to trend CBC. #9. Anxiety and Depression: Holding all oral psychiatric medications, resume once clinically safe #10. RLS: Per current list not on regimen, previously had been on Requip. #11. Former tobacco use: Encourage continued tobacco cessation. #12. GERD: Will temporally maintain on IV PPI. #13. TIO: BIPAP q HS normally baseline however we need to closely monitor and only place if airway was safe. #14. Chronic COPD: Will maintain on oxygen with wean as tolerated to home oxygen supplementation, continue ATC budesonide therapy, PRN albuterol, HOB, IS parameters once able to perform. #15. DVT prophylaxis: Lovenox. #16. CODE status: Patient STACEY is her daughter who is present and living will is currently in place. Would plan to continue full code per facility paperwork. Charges/Coding Multi Select Codes Visit Charges Office Visit/Consults: 41585 ED Visit; High/Threatening Severity
[2024-01-28] MEDS: levETIRAcetam IV 1,000 MG/100 ML BAG 400 MG IV (14:42)
== END 2024-01-28 17:40 | disposition short-term general hospital (02) ==
PROVIDERS: Emergency Provider Emergency Medicine; PCP Internal Medicine; Visit Provider Emergency Medicine
DX: G40.901 Epilepsy, unspecified, not intractable, with status epilepticus (principal); I11.0 Hypertensive heart disease with heart failure; I50.32 Chronic diastolic (congestive) heart failure; J44.9 Chronic obstructive pulmonary disease, unspecified; I42.8 Other cardiomyopathies; Z79.51 Long term (current) use of inhaled steroids; Z79.82 Long term (current) use of aspirin; G47.00 Insomnia, unspecified; Z87.891 Personal history of nicotine dependence; E78.5 Hyperlipidemia, unspecified; Z86.718 Personal history of other venous thrombosis and embolism; I25.2 Old myocardial infarction; G47.33 Obstructive sleep apnea (adult) (pediatric); Z86.73 Personal history of transient ischemic attack (TIA), and cerebral infarction without residual deficits; E03.9 Hypothyroidism, unspecified; Z99.81 Dependence on supplemental oxygen
CPT/HCPCS: 70496; 71045; 80048; 85025; 85610; 85730; 93005; 99285; J7030; Q9967; A4216

== ENCOUNTER 2024-03-01 13:30 | Observation (INO) | payer MEDICARE, SELFPAY ==
[2024-03-01] VITALS (13 sets, daily range): BP systolic 81–123; BP diastolic 47–102; PULSE 80–100; RESP 16–25; TEMP 36.4–36.9; O2SAT 82–99; BMI 23.0
--- NOTE | 2024-03-01 13:57 | EKG12_ITS ---
Test Reason : SOB Blood Pressure : / mmHG Vent. Rate : 083 BPM Atrial Rate : 083 BPM P-R Int : 134 ms QRS Dur : 088 ms QT Int : 438 ms P-R-T Axes : 068 048 047 degrees QTc Int : 514 ms Normal sinus rhythm Possible Inferior infarct , age undetermined Prolonged QT Abnormal ECG Confirmed by Leobardo Yan ([id number]), editor farm journal NICOLE ARANGO ([id number]) on 03/02/2024 2:05:15 PM Referred By: Confirmed By:Leobardo Yan
[2024-03-01 14:21] LABS: Absolute Lymphocyte Count 1.63 X10^3/uL (0.83-4.51); Absolute Neutrophil Count 5.2 X10^3/uL (2.0-7.7); Basophil# 0.05 X10^3/uL; Basophil% 0.6 % (0-1); Eosinophil# 0.07 X10^3/uL; Eosinophils% 0.9 % (0-5); Hematocrit 32.9 % (37-47); Hemoglobin 9.5 g/dL (12.0-15.0); Lymphocyte # 1.63 X10^3/ul (0.83-4.51); Mean Corp Hgb Conc 28.9 g/dL (32-36); Mean Corpuscular Hgb 26.6 pg (27.0-32.0); Mean Corpuscular Volume 92.2 fL (81-99); Mean Platelet Vol. 9.9 fl (6.2-12.0); Monocyte# 0.73 X10^3/uL; Monocyte% 9.4 % (0-10); NRBC Flagged by Analyzer 0 % (0-5); Neutrophil % 66.8 % (47-70); Platelet Count 323 K/mm3 (150-450); RBC Distribution Width CV 14.6 % (11.6-14.6); RBC Distribution Width SD 48.8 fl (35.1-43.9); Red Blood Count 3.57 M/mm3 (4.2-5.4); White Blood Count 7.8 K/mm3 (4.4-11.0)
[2024-03-01 14:28] LABS: Allen Test Positive; Base Excess 19 mmol/L (-2 to +2); Blood Gas Specimen Type ART; Mode Not entered; O2 Delivery Device Cannula; PO2 67 mmHG (75-100); SITE R Radial; SO2 91 % (95-99); Total Carbon Dioxide 46 mmol/L; pCO2 77.8 mmHg (35-45); pH 7.36 (7.35-7.45)
--- NOTE | 2024-03-01 14:30 | RAD_ITS ---
STUDY: X-RAY CHEST REASON FOR EXAM: Female, 68 years old. Copd/cough TECHNIQUE: Single AP portable view of the chest. COMPARISON: Comparison is made with prior study January 28, 2024. FINDINGS: A tracheostomy tube is in situ. The tip is at 4.7 cm proximal to the claude. EKG electrodes are seen. Hyperinflation. The lungs are clear. There is no demonstrated pleural abnormality. Normal size heart. Normal mediastinum and jacinto. Normal visualized pulmonary arteries. Normal visualized aortic arch and descending thoracic aorta. Normal visualized thoracic spine. Normal visualized ribs, clavicles, and shoulders. There is no demonstrated abnormality of the visualized soft tissue structures of the upper abdomen. RAD/Chest 1 View (Portable) IMPRESSION: Hyperinflation. The lungs are clear. Stable appearance of the tracheostomy. Electronically Signed: Vinny Mcghee MD at 14:52 EDT ,
[2024-03-01] MEDS: Ipratropium/Albuterol Sulfate 3 ML AMPUL.NEB INHALATION ×3 (14:31→22:48)
[2024-03-01 14:41] LABS: ALB/GLOB Ratio 0.7 RATIO (0.9-2.4); AST(SGOT) 31 U/L (15-37); Alanine Aminotransfer ALT/SGPT 25 U/L (13-56); Albumin, Serum 2.9 g/dL (3.2-5.0); Alkaline Phosphatase 82 U/L (45-117); Anion Gap 3 (5-15); BUN 12 mg/dL (7-18); BUN/Creat Ratio 11.1 RATIO (10-20); Calcium,Total 8.9 mg/dL (8.5-10.1); Chloride 96 mmol/L (98-107); Creatinine, Serum 1.08 mg/dL (0.55-1.02); EST Glomerular Filtration Rate 53 mL/min (>60); Est Glom Filt Rate - Afr Amer 65 mL/min (>60); Globulin 4.1 g/dL (2.2-4.2); Glucose 161 mg/dL (74-106); Potassium 4.2 mmol/L (3.5-5.1); Sodium Level 141 mmol/L (136-145); Troponin-I HS 109 pg/mL (3.0-54.0)
[2024-03-01 14:44] LABS: Partial Thromboplast Time 26.6 Seconds (24.1-36.2); Prothrombin Time (Protime)PT. 13.1 SECONDS (11.7-14.9)
--- NOTE | 2024-03-01 14:59 | ED.VIS.DYS ---
HPI History of Present Illness Chief Complaint: Cough Informant: patient and spouse/S.O. Narrative Narrative: 68-year-old female history of COPD and seizure disorder presenting to the emergency room due to her expressing concerns for her breathing and confusion. The patient has a tracheostomy that was placed earlier this year after she was intubated for prolonged period due to status epilepticus. Patient states she chronically wears about 5 L nasal cannula. notes that she has had an increase in cough but not sputum production. No reported fevers. He feels generally fatigued but has not had any respiratory illnesses. Patient states that she would like to find out whether or not she could get her tracheostomy removed on this ED visit. Patient has a history of CO2 retention, Takotsubo's cardiomyopathy, congestive heart failure, epilepsy, COPD, PFSH PFSH Medical History Hypothyroidism Former smoker BiPAP (biphasic positive airway pressure) dependence On home oxygen therapy Asthma Seizures Stroke/cerebrovascular accident Noncompliance Diastolic CHF History of alcohol abuse Aspiration pneumonia due to gastric secretions Carcinoma in situ of breast Benign neoplasm of colon Takotsubo cardiomyopathy (06/17/21) Ischemic cerebrovascular accident (CVA) (02/06/17) Non-rheumatic mitral regurgitation Anxiety and depression Non-ischemic cardiomyopathy Essential (primary) hypertension Secondary pulmonary arterial hypertension Chronic anemia GERD (gastroesophageal reflux disease) TIO (obstructive sleep apnea) History of non-ST elevation myocardial infarction (NSTEMI) (02/03/17) History of DVT of lower extremity (02/11/17) Insomnia Hyperlipidemia Daytime hypersomnia Hemorrhagic cerebrovascular accident (CVA) (02/09/17) COPD (chronic obstructive pulmonary disease) Home Medications ?Medication ?Instructions ?Recorded ?Last Taken ?Type cholecalciferol (vitamin D3) 25 25 mcg PO DAILY supplement 11/03/20 Unknown History mcg (1,000 unit) tablet (Vitamin D3) pantoprazole 40 mg tablet,delayed 40 mg PO DAILY GERD 11/03/20 11/15/23 History release (Protonix) aripiprazole 2 mg tablet (Abilify) 2 mg PO DAILY mental health 08/25/22 11/15/23 History atorvastatin 40 mg tablet 40 mg PO QHS cholesterol 08/25/22 11/15/23 History metoprolol succinate 25 mg 25 mg PO DAILY blood pressure 08/25/22 11/15/23 History tablet,extended release 24 hr phenytoin 100 mg/4 mL oral 100 mg (4 mL) PO Q8 30 days #360 mL 10/12/22 Unknown Rx suspension duloxetine 30 mg capsule,delayed 30 mg PO DAILY mental health 11/11/22 11/15/23 History release furosemide 20 mg tablet 20 mg PO BIDCM diuretic 11/11/22 11/15/23 History mirtazapine 7.5 mg tablet 7.5 mg PO QHS #30 tabs 11/11/22 11/14/23 Rx albuterol sulfate 2.5 mg/3 mL 2.5 mg (3 mL) inhalation Q2H PRN 06/30/23 11/15/23 Rx (0.083 %) solution for nebulization PRN Dyspnea, wheezing #180 mL albuterol sulfate 90 mcg/actuation 2 inh inhalation Q4H #8.5 grams 06/30/23 11/15/23 Rx aerosol inhaler fluticasone fur. 100 mcg-umeclid 1 inh inhalation DAILY 30 days #60 06/30/23 11/15/23 Rx 62.5 mcg-vilant 25 mcg ea inhalat.powder (Trelegy Ellipta) nystatin 100,000 unit/mL oral 5 ml mucous membrane TID #250 mL 06/30/23 11/15/23 Rx suspension aspirin 81 mg tablet,delayed 81 mg PO DAILY 11/15/23 11/15/23 History release (Adult Aspirin Regimen) escitalopram oxalate 20 mg tablet 20 mg PO DAILY 11/15/23 11/15/23 History hydroxyzine pamoate 25 mg capsule 25 mg PO TID 11/15/23 11/15/23 History ipratropium 0.5 mg-albuterol 3 mg 3 ml inhalation Q6H 11/15/23 11/15/23 History (2.5 mg base)/3 mL nebulization soln zolpidem 10 mg tablet 10 mg PO QHS PRN insomnia 11/15/23 11/14/23 History acetaminophen 325 mg tablet 650 mg (2 x 325 mg) PO Q4H PRN PRN 11/18/23 Unknown Rx Fever, pain 1-04/13 #0 tabs dextromethorphan-guaifenesin 30 2 tab PO BID 7 days #28 tabs 11/18/23 Unknown Rx mg-600 mg tablet extended nktciol23 hr (Mucinex DM) prednisone 20 mg tablet 40 mg (2 x 20 mg) PO DAILY 5 days 11/18/23 Unknown Rx #10 tabs sennosides 8.6 mg-docusate sodium 2 tab PO BID PRN PRN Constipation 11/18/23 Unknown Rx 50 mg tablet (Stool #0 tabs Softener-Stimulant Laxative) sulfamethoxazole 800 1 tab PO DAILY 14 days #14 tabs 12/13/23 Unknown Rx mg-trimethoprim 160 mg tablet (Bactrim DS) cephalexin 500 mg capsule 500 mg PO TID #21 CAPSULES 12/23/23 Unknown Rx potassium chloride 20 mEq 20 meq PO BID 01/28/24 Unknown History tablet,extended release(part/cryst) (Klor-Con M) Allergy/AdvReac Type Severity Reaction Status Date / Time tetanus and diphtheria Allergy Hives Verified 03/01/24 13:32 toxoids (tetanus & diphtheria toxoids) Family History Sister Cancer lung Father Cancer lung Mother Cancer lung Surgical History S/P emergency tracheotomy for assistance in breathing History of tracheostomy S/P percutaneous endoscopic gastrostomy (PEG) tube placement History of left heart catheterization (06/17/21) History of bilateral cataract extraction Hx of appendectomy H/O: section History of lumpectomy History of cholecystectomy Social History household members: spouse Smoking Status: Former smoker how long ago did patient quit smokin, 1pk/day second hand exposure: Yes alcohol intake: former substance use type: does not use what type of physical activity do you participate in: walking frequency: daily ROS ROS ED Constitutional Constitutional ED: Denies chills, fever(s) or weight loss Eyes Eyes: Denies change in vision or diplopia ENT ENT ED: Denies ear pain, rhinorrhea or sore throat Cardiovascular Cardiovascular: Denies chest pain, orthopnea, palpitations or racing heartbeat Respiratory/Chest Respiratory/Chest: Reports cough and dyspnea; Denies orthopnea Gastrointestinal Gastrointestinal: Denies abdominal pain, diarrhea, nausea or vomiting Genitourinary Genitourinary ED: Denies dysuria, hematuria or urinary frequency Musculoskeletal Musculoskeletal: Denies arthralgias, back pain, myalgias or neck pain Integumentary Denies abscess or rash Neurologic Neurologic: Reports other Details: Intermittent confusion ; Denies headache(s) or weakness Psychiatric Psychiatric: Denies anxiety, depression, suicidal ideation or suicidal thoughts Endocrine Endocrinology: Denies polydipsia, polyphagia or polyuria Allergic/Immunologic Allergic/Immunologic ED: Denies mouth swelling, tongue swelling or urticaria EXAM Physical Exam Const Vital Signs: 03/01/24 13:31 03/01/24 13:45 03/01/24 13:46 Temperature 97.6 F L Temperature Source Temporal Pulse Rate 96 91 Respiratory Rate 22 H 24 H Respiratory Effort Short of Breath Respiratory Pattern Blood Pressure 81/47 L 123/102 H Blood Pressure Mean 58 109 Pulse Ox 82 91 Oxygen Delivery Method Nasal Cannula Nasal Cannula Nasal Cannula Oxygen Flow Rate (L/min) 5 5 5 03/01/24 14:36 03/01/24 15:15 Temperature 98.4 F Temperature Source Oral Pulse Rate 88 100 Respiratory Rate 22 H 21 H Respiratory Effort Respiratory Pattern Tachypnea Blood Pressure 110/54 L Blood Pressure Mean 72 Pulse Ox 95 Oxygen Delivery Method Nasal Cannula Oxygen Flow Rate (L/min) 5 Positive well nourished and well developed General Appearance ED: well developed and NAD HEENT Reports normocephalic, head/scalp atraumatic and moist mucous membranes Eyes PERRL and EOMs intact bilaterally Neck no lymphadenopathy, supple and no JVD Neck Narrative: Tracheostomy site clean dry intact. Resp normal respiratory effort Auscultation: wheezes expiratory wheezes (Faint) Cardio regular rate, regular rhythm and no murmurs GI normal to inspection, nondistended, normoactive bowel sounds and non-tender Palpation: soft Back/Spine no CVA tenderness and normal ROM Extremity normal to inspection General Extremety ED: Negative for edema General Extremity: Negative for edema Neuro oriented x3 and CN's II-XII intact bilaterally Neuro Narrative: Patient is alert and oriented x 3. However she does demonstrate some confusion as to why she is here who brought her here. Sensorium / Orientation: alert Motor Exam: strength 5/5 throughout Psych mental status grossly normal Mood & Affect: Negative for depressed or tearful Skin no rashes or lesions noted and no wounds MDM MDM MDM Narrative Medical decision making narrative: Differential diagnosis includes COPD exacerbation pneumonia chronic bronchitis CO2 retention sepsis hypoxia driven cardiac strain ABG demonstrates a pH 7.361 with pCO2 77.8 pCO2 66.6 HCO3 44 and this was drawn on 5 L nasal cannula. White count 7.8 hemoglobin 9.5 platelet count 323. INR is 1 PTT 26.6 BMP with a creatinine of 1.08 glucose 161. Lactic acid 2.6 troponin 109 BNP is 457. EKG is sinus rhythm that is nonischemic. The patient's blood pressure in triage was noted to be 81/47 however back in the room she is 110/54. She was noted to be 82% in triage with exertion. At rest she is 95% on [address] of the brain for the altered mental status will be obtained as well as a CTA of the chest to rule out pulmonary embolism patient received breathing treatment as well as Solu-Medrol. I am anticipating hospital admission. I will speak with the hospitalist History & Record Review Discussion w/independent historian: Patient and Significant other Additional record(s) reviewed:: Prior inpatient record, Prior outpatient record, Prior ED visit and Prior labs Lab Data Attestation: I reviewed the patient's lab results. Labs: Laboratory Results - last 24 hr 03/01/24 14:00 WBC 7.8 RBC 3.57 L Hgb 9.5 L Hct 32.9 L MCV 92.2 MCH 26.6 L MCHC 28.9 L RDW Std Deviation 48.8 H RDW Coeff of Deonte 14.6 Plt Count 323 MPV 9.9 Immature Gran % (Auto) 1.300 H Neut % (Auto) 66.8 Lymph % (Auto) 21.0 Glades % (Auto) 9.4 Eos % (Auto) 0.9 Baso % (Auto) 0.6 Absolute Neuts (auto) 5.2 Absolute Lymphs (auto) 1.63 Nucleated RBC % 0 PT 13.1 INR 1.0 APTT 26.6 Sodium 141 Potassium 4.2 Chloride 96 L Carbon Dioxide 42.0 H Anion Gap 3 L BUN 12 Creatinine 1.08 H Est GFR (MDRD) Af Amer 65 Est GFR (MDRD) Non-Af 53 L BUN/Creatinine Ratio 11.1 Glucose 161 H Lactic Acid 2.6 H* Calcium 8.9 Total Bilirubin 0.20 AST 31 ALT 25 Alkaline Phosphatase 82 Troponin I High Sens 109 H B-Natriuretic Peptide 457.0 H Total Protein 7.0 Albumin 2.9 L Globulin 4.1 Albumin/Globulin Ratio 0.7 L ABG Data ABG results: ABG 03/01/24 14:23 Specimen Type ART Sample Site R Radial pH 7.36 Bicarbonate Actual 44.0 H Total CO2 46 Base Excess 19 H O2 Saturation 91 L O2 % 5.0 ABG pCO2 77.8 H* ABG pO2 67 L Royal Test Positive O2 Delivery Device Cannula Vent Mode Not entered Crit Call To/Read Back Yes Blood Gas Notified Whom dh Blood Gas Notified Time 14:25:19 Radiography Diagnostic Testing: Clinical Impression(s) from Imaging Studies Chest X-Ray 03/01/24 14:30 IMPRESSION: Hyperinflation. The lungs are clear. Stable appearance of the tracheostomy. Electronically Signed: Vinny Mcghee MD at 14:52 EDT , EKG Initial EKG: Attestation: I personally reviewed and interpreted this EKG as follows: Comments: Normal sinus rhythm ventricular rate of 83 bpm Management Discussion w/another healthcare provider: Hospitalist Discharge Plan Dx/Rx/DC Orders Clinical Impression: COPD with acute exacerbation, Acute on chronic respiratory failure with hypoxia and hypercapnia, Lactic acidosis, Elevated troponin Disposition Disposition: [facility]
[2024-03-01 15:03] LABS: Lactic Acid 2.6 mmol/L (0.4-1.9)
--- NOTE | 2024-03-01 15:15 | CT_ITS ---
STUDY: CTA CHEST REASON FOR EXAM: Female, 68 years old. pulmonary embolism RADIATION DOSAGE (If Supplied By Facility): CTDIvol = ( 6.10 ) mGy, DLP = ( 197.19 ) mGycm TECHNIQUE: The examination was performed with the intravenous administration of IV 75mL [id number]. Post-processing of the angiographic images was performed, with multiplanar reformation and 3D reconstruction. The protocol utilizes one or more of the following dose reduction techniques: automated exposure control, adjustment of mA and/or kV according to patient size,and/or use of iterative reconstruction technique. COMPARISON: FINDINGS: There is a tracheostomy tube in place. Normal enhancement of the main pulmonary artery and right and left pulmonary arteries. Normal enhancement of the bilateral peripheral pulmonary arteries. There is no demonstrated pulmonary embolism. Normal thoracic aorta and visualized great vessels. There is no demonstrated aortic dissection. Normal heart and pericardium. Normal mediastinum. Normal hilar regions. Normal visualized trachea and bronchi. The lungs are well expanded. Normal pulmonary parenchyma. Normal pleura. Normal chest wall structures. Normal osseous structures. Normal visualized upper abdomen. CT/CTA Chest W/WO Contrast IMPRESSION: No demonstrated pulmonary embolism or arterial dissection. Electronically Signed: Luis Miguel Reyes DO at 17:00 EDT ,
--- NOTE | 2024-03-01 15:15 | CT_ITS ---
STUDY: CT BRAIN WITHOUT CONTRAST REASON FOR EXAM: Female, 68 years old. confusion RADIATION DOSAGE (If Supplied By Facility): CTDIvol = ( 44.99 ) mGy, DLP = ( 796.11 ) mGycm TECHNIQUE: Transaxial CT imaging of the brain was performed without administration of intravenous contrast material. Individualized dose optimization techniques were used for this CT. COMPARISON: January 28, 2024 FINDINGS: Normal soft tissue structures. Right-sided postsurgical defect of the calvarium. Normal size ventricles and extra-axial spaces for the patient''s age. Right occipital and left parieto-occipital encephalomalacia. Focal small old right frontal infarct near the vertex. Normal white matter tracts of the cerebral hemispheres. Normal basal ganglia. Small focal old infarct in the right thalamus. Normal brainstem. Normal cerebellum. There is no intracranial hemorrhage. There are no findings of an acute ischemic infarction. Normal visualized paranasal sinuses. CT/Brain/Head without Contrast IMPRESSION: Relatively stable age-related chronic changes of the brain. Electronically Signed: Luis Miguel Reyes DO at 16:49 EDT Reading Location ID and State: [facility] / [place] Tel [phone], Service support ,
[2024-03-01] MEDS: MethylPREDNISolone 125 MG/2 ML Vial IV (16:28)
--- NOTE | 2024-03-01 17:20 | PCM.HP.STD ---
HPI - General General Date of Admission: 03/01/24 Date of Service: 03/01/24 Chief Complaint: Increased cough and SOB HPI Narrative MARCO MAY, is a 68-year-old female history of chronic systolic heart failure and Takotsubo cardiomyopathy, seizure activity, COPD with chronic hypoxic and hypercapnic respiratory failure on around 5 L home O2 with tracheostomy, CVA with previous PEG tube, TIO who presented to [facility] ED 03/01/2024 with cough and was found to be 80% SpO2 in triage on her home 5 L. She presented with her and there were concerns for her breathing and confusion. She has had cough and fatigue and has been reports her cough has been productive. ABG demonstrated bicarb 44 and pCO2 of 77.8 with a PaO2 of 67, pH 7.36. CXR w/ hyperinflation w/out acute process or infiltrate. COVID-negative. She was given a breathing treatment and IV steroids in the ED and hospitalist contacted for admission for COPD exacerbation. Patient evaluated at bedside. Patient reports increased shortness of breath and cough with sputum production over the past several days and just feeling generally unwell, no fevers, no chest pain or abdominal pain. Denies any other current complaints aside from some anxiety [facility] Medical History Hypothyroidism Former smoker BiPAP (biphasic positive airway pressure) dependence On home oxygen therapy Asthma Seizures Stroke/cerebrovascular accident Noncompliance Diastolic CHF History of alcohol abuse Aspiration pneumonia due to gastric secretions Carcinoma in situ of breast Benign neoplasm of colon Takotsubo cardiomyopathy (06/17/21) Ischemic cerebrovascular accident (CVA) (02/06/17) Non-rheumatic mitral regurgitation Anxiety and depression Non-ischemic cardiomyopathy Essential (primary) hypertension Secondary pulmonary arterial hypertension Chronic anemia GERD (gastroesophageal reflux disease) TIO (obstructive sleep apnea) History of non-ST elevation myocardial infarction (NSTEMI) (02/03/17) History of DVT of lower extremity (02/11/17) Insomnia Hyperlipidemia Daytime hypersomnia Hemorrhagic cerebrovascular accident (CVA) (02/09/17) COPD (chronic obstructive pulmonary disease) Home Medications ?Medication ?Instructions ?Recorded ?Last Taken ?Type cholecalciferol (vitamin D3) 25 25 mcg PO DAILY supplement 11/03/20 Unknown History mcg (1,000 unit) tablet (Vitamin D3) pantoprazole 40 mg tablet,delayed 40 mg PO DAILY GERD 11/03/20 11/15/23 History release (Protonix) aripiprazole 2 mg tablet (Abilify) 2 mg PO DAILY mental health 08/25/22 11/15/23 History atorvastatin 40 mg tablet 40 mg PO QHS cholesterol 08/25/22 11/15/23 History metoprolol succinate 25 mg 25 mg PO DAILY blood pressure 08/25/22 11/15/23 History tablet,extended release 24 hr phenytoin 100 mg/4 mL oral 100 mg (4 mL) PO Q8 30 days #360 mL 10/12/22 Unknown Rx suspension duloxetine 30 mg capsule,delayed 30 mg PO DAILY mental health 11/11/22 11/15/23 History release furosemide 20 mg tablet 20 mg PO BIDCM diuretic 11/11/22 11/15/23 History mirtazapine 7.5 mg tablet 7.5 mg PO QHS #30 tabs 11/11/22 11/14/23 Rx albuterol sulfate 2.5 mg/3 mL 2.5 mg (3 mL) inhalation Q2H PRN 06/30/23 11/15/23 Rx (0.083 %) solution for nebulization PRN Dyspnea, wheezing #180 mL albuterol sulfate 90 mcg/actuation 2 inh inhalation Q4H #8.5 grams 06/30/23 11/15/23 Rx aerosol inhaler fluticasone fur. 100 mcg-umeclid 1 inh inhalation DAILY 30 days #60 06/30/23 11/15/23 Rx 62.5 mcg-vilant 25 mcg ea inhalat.powder (Trelegy Ellipta) nystatin 100,000 unit/mL oral 5 ml mucous membrane TID #250 mL 06/30/23 11/15/23 Rx suspension aspirin 81 mg tablet,delayed 81 mg PO DAILY 11/15/23 11/15/23 History release (Adult Aspirin Regimen) escitalopram oxalate 20 mg tablet 20 mg PO DAILY 11/15/23 11/15/23 History hydroxyzine pamoate 25 mg capsule 25 mg PO TID 11/15/23 11/15/23 History ipratropium 0.5 mg-albuterol 3 mg 3 ml inhalation Q6H 11/15/23 11/15/23 History (2.5 mg base)/3 mL nebulization soln zolpidem 10 mg tablet 10 mg PO QHS PRN insomnia 11/15/23 11/14/23 History acetaminophen 325 mg tablet 650 mg (2 x 325 mg) PO Q4H PRN PRN 11/18/23 Unknown Rx Fever, pain 1-1010 #0 tabs dextromethorphan-guaifenesin 30 2 tab PO BID 7 days #28 tabs 11/18/23 Unknown Rx mg-600 mg tablet extended [id number] hr (Mucinex DM) prednisone 20 mg tablet 40 mg (2 x 20 mg) PO DAILY 5 days 11/18/23 Unknown Rx #10 tabs sennosides 8.6 mg-docusate sodium 2 tab PO BID PRN PRN Constipation 11/18/23 Unknown Rx 50 mg tablet (Stool #0 tabs Softener-Stimulant Laxative) potassium chloride 20 mEq 20 meq PO BID 01/28/24 Unknown History tablet,extended release(part/cryst) (Klor-Con M) Allergy/AdvReac Type Severity Reaction Status Date / Time tetanus and diphtheria Allergy Hives Verified 03/01/24 13:32 toxoids (tetanus & diphtheria toxoids) Family History Sister Cancer lung Father Cancer lung Mother Cancer lung Surgical History S/P emergency tracheotomy for assistance in breathing History of tracheostomy S/P percutaneous endoscopic gastrostomy (PEG) tube placement History of left heart catheterization (06/17/21) History of bilateral cataract extraction Hx of appendectomy H/O: section History of lumpectomy History of cholecystectomy Social History household members: spouse Smoking Status: Former smoker how long ago did patient quit smokin, 1pk/day second hand exposure: Yes alcohol intake: former substance use type: does not use what type of physical activity do you participate in: walking frequency: daily ROS ROS Narrative General: Denies fever/chills HENT: Denies headache, denies stuffy nose, denies sore throat EYES: Denies changes in vision Resp: Increased cough productive of sputum and shortness of breath Cardiac: Denies chest pain GI: Denies abdominal pain, denies changes in bowel, denies nausea/vomiting : Denies changes in urination Extremity: Denies swelling MSK: Some generalized weakness and feeling unwell Neuro: Denies any numbness/tingling Heme: Denies any bleeding or bruising Skin: Denies rashes Psychiatric: Has been feeling somewhat anxious Vital Signs Vital Signs Vital Signs: 03/01/24 13:31 03/01/24 13:45 03/01/24 13:46 Temperature 97.6 F L Temperature Source Temporal Pulse Rate 96 91 Respiratory Rate 22 H 24 H Respiratory Effort Short of Breath Respiratory Pattern Blood Pressure 81/47 L 123/102 H Blood Pressure Mean 58 109 Pulse Ox 82 91 Oxygen Delivery Method Nasal Cannula Nasal Cannula Nasal Cannula Oxygen Flow Rate (L/min) 5 5 5 03/01/24 14:36 03/01/24 15:15 03/01/24 16:00 Temperature 98.4 F 98.3 F Temperature Source Oral Oral Pulse Rate 88 100 89 Respiratory Rate 22 H 21 H 23 H Respiratory Effort Respiratory Pattern Tachypnea Blood Pressure 110/54 L 98/53 L Blood Pressure Mean 72 68 Pulse Ox 95 93 Oxygen Delivery Method Nasal Cannula Nasal Cannula Oxygen Flow Rate (L/min) 5 5 03/01/24 16:34 Temperature 98.3 F Temperature Source Pulse Rate 90 Respiratory Rate 22 H Respiratory Effort Respiratory Pattern Blood Pressure 104/49 L Blood Pressure Mean 67 Pulse Ox 97 Oxygen Delivery Method Oxygen Flow Rate (L/min) Physical Exam Narrative General: Alert, oriented, no apparent distress HEENT: Atraumatic, normocephalic Eyes: Anicteric, normal conjunctiva, extraocular movements grossly intact Neck: Supple Respiratory: Slight increased work of breathing, diminished bilaterally Cardiovascular: Regular rate and rhythm GI: Soft, nontender, nondistended Extremities: No edema Musculoskeletal: Moving all extremities Neuro: No overt focal neurological deficits Skin: No rashes appreciated Psych: Cooperative Results Lab / Micro Data 03/01/24 14:00 03/01/24 14:00 Labs: Laboratory Results - last 24 hr 03/01/24 14:00: WBC 7.8, RBC 3.57 L, Hgb 9.5 L, Hct 32.9 L, MCV 92.2, MCH 26.6 L, MCHC 28.9 L, RDW Std Deviation 48.8 H, RDW Coeff of Deonte 14.6, Plt Count 323, MPV 9.9, Immature Gran % (Auto) 1.300 H, Neut % (Auto) 66.8, Lymph % (Auto) 21.0, [place] % (Auto) 9.4, Eos % (Auto) 0.9, Baso % (Auto) 0.6, Absolute Neuts (auto) 5.2, Absolute Lymphs (auto) 1.63, Nucleated RBC % 0, PT 13.1, INR 1.0, APTT 26.6, Sodium 141, Potassium 4.2, Chloride 96 L, Carbon Dioxide 42.0 H, Anion Gap 3 L, BUN 12, Creatinine 1.08 H, Est GFR (MDRD) Af Amer 65, Est GFR (MDRD) Non-Af 53 L, BUN/Creatinine Ratio 11.1, Glucose 161 H, Lactic Acid 2.6 H*, Calcium 8.9, Total Bilirubin 0.20, AST 31, ALT 25, Alkaline Phosphatase 82, Troponin I High Sens 109 H, B-Natriuretic Peptide 457.0 H, Total Protein 7.0, Albumin 2.9 L, Globulin 4.1, Albumin/Globulin Ratio 0.7 L Micro: Microbiology 03/01/24 14:23 Mucosa - Nose SARS-CoV-2, Influenza & RSV (PCR) - Final ABG Data ABG results: ABG 03/01/24 14:23 Specimen Type ART Sample Site R Radial pH 7.36 Bicarbonate Actual 44.0 H Total CO2 46 Base Excess 19 H O2 Saturation 91 L O2 % 5.0 ABG pCO2 77.8 H* ABG pO2 67 L Royal Test Positive O2 Delivery Device Cannula Vent Mode Not entered Crit Call To/Read Back Yes Blood Gas Notified Whom dh Blood Gas Notified Time 14:25:19 Imaging Radiology Impression Chest X-Ray 03/01/24 14:30 IMPRESSION: Hyperinflation. The lungs are clear. Stable appearance of the tracheostomy. Electronically Signed: Vinny Mcghee MD at 14:52 EDT , Brain CT 03/01/24 15:15 IMPRESSION: Relatively stable age-related chronic changes of the brain. Electronically Signed: Luis Miguel Reyes DO at 16:49 EDT , Chest CTA 03/01/24 15:15 IMPRESSION: No demonstrated pulmonary embolism or arterial dissection. Electronically Signed: Luis Miguel Reyes DO at 17:00 EDT , Assessment & Plan Assessment/Plan (1) Acute on chronic respiratory failure with hypoxia and hypercapnia: PLAN: Plan # Acute hypoxia on chronic hypoxic and hypercapnic respiratory failure on around 5 L home O2 and chronic trach 2/2 COPD exacerbation -Increased shortness of breath with increased cough and sputum production with no infiltrates on CT consistent with COPD exacerbation -Patient 82% on 5 L nasal cannula, given neb with improvement to 91% on 5 L -ABG demonstrated bicarb 44 and pCO2 of 77.8 with a PaO2 of 67, pH 7.36 -Admit to floor, continuous O2 monitoring -Chest x-ray: CXR w/ hyperinflation w/out acute process -CTA with no acute process and no PE -COVID-negative, check respiratory panel, sputum culture if able -O2 in place, wean as tolerated -IV methylprednisone -Scheduled DuoNebs -Antibiotics: Augmentin -Incentive spirometer -Mucinex -Does still have trach in place, will need to follow-up with her pulmonology office upon discharge -Once patient is ready to transition off of nebs and IV steroids can resume home Trelegy inhaler #Multiple home medication discrepancies -Medications on patient's current home med list in our system do not necessarily match up with fill history or with patient report of what she is taking -Query compliance versus patient unclear about home medication regimen -Would benefit from family bring in med list if 1 is available or trying to further clarify what patient is and is not taking # Elevated troponin -Troponin of 109 -Suspect this is demand due to patient's hypoxia -No chest pain -EKG with nonspecific changes however patient without chest pain or other cardiac symptoms or etiology but was found to be hypoxic, do not feel further cardiac workup is necessary at this time #Anxiety -Patient has Lexapro and duloxetine listed on her home medication list however. She fill duloxetine 02/12 and has not filled Lexapro in several months -Continue duloxetine -Continue mirtazapine -Will continue hydroxyzine as needed # Chronic normocytic anemia -Variable baseline but seems within range -No evidence of ongoing blood loss -Repeat in the a.m. # Elevated creatinine -Creatinine 1.08, last month was 0.93 however prior to that was in 0.6-0.75 range -Gentle hydration #TIO -Continue home NIPPV if applicable # History of CVA with previous PEG tube placement -Continue aspirin and statin # History of seizure activity -Patient has been report she ultimately was deemed not to have seizures and was not discharged on any medications for seizures after her hospitalization in [place] -Phenytoin is on patient's home med list however does not appear it has been filled recently and patient denies taking this for anything for seizures # Previous heart failure reduced ejection fraction/Takotsubo cardiomyopathy -Patient most recently with echocardiogram 10/09/2022 that demonstrated EF 55 with normal diastole and apical hypokinesis, patient with recovered EF -Does not appear to be volume overloaded at this time -Slight elevation of BNP however not peripherally overloaded and chest x-ray not consistent with overload -Daily weights, I's and O's #GERD -Continue PPI #DVT ppx: Lovenox subcu Elenita Barber MD Charges/Coding Visit Charges Inpatient E&M: 62138 Init Hosp L2
[2024-03-01 18:18] LABS: Reflex Lactate? Y
[2024-03-01] MEDS: 0.9% Normal Saline (1000mL) 1,000 ML 50 ML IV (19:15)
[2024-03-01 19:53] LABS: Lactic Acid 0.8 mmol/L (0.4-1.9)
--- NOTE | 2024-03-01 22:58 | CPS ---
[7015] Pt. currently on 4L NC with appropriate oxygenation status (97%). Pt. stated that she needs her medication prior to going on BiPAP for the night. RN stated they're working on her night-time medication at this time, and they're agreeable to placing pt. on BiPAP after medication is given to pt.
[2024-03-01] MEDS: Atorvastatin Calcium 40 MG Tablet PO (23:07)
[2024-03-01] MEDS: guaiFENesin 1,200 MG Tablet 1200 MG PO (23:07)
[2024-03-01] MEDS: Mirtazapine 15 MG Tablet 7.5 MG PO (23:07)
[2024-03-01] MEDS: ARIPiprazole 2 MG Tablet PO (23:08)
[2024-03-01] MEDS: 0.9% Saline Lock 10 ML Syringe IV (23:09)
[2024-03-02] VITALS (13 sets, daily range): BP systolic 102–120; BP diastolic 48–71; PULSE 72–93; RESP 16–18; TEMP 36.3–36.6; O2SAT 4–99; BMI 23.0
[2024-03-02] MEDS: Ipratropium/Albuterol Sulfate 3 ML AMPUL.NEB INHALATION ×4 (03:40→19:26)
[2024-03-02] MEDS: 0.9% Saline Lock 10 ML Syringe IV ×2 (05:43→13:47)
[2024-03-02 06:02] LABS: Absolute Lymphocyte Count 0.56 X10^3/uL (0.83-4.51); Absolute Neutrophil Count 3.3 X10^3/uL (2.0-7.7); Basophil# 0.02 X10^3/uL; Basophil% 0.5 % (0-1); Hematocrit 32.8 % (37-47); Hemoglobin 9.6 g/dL (12.0-15.0); Lymphocyte # 0.56 X10^3/ul (0.83-4.51); Lymphocyte % 14.1 % (19-41); Mean Corp Hgb Conc 29.3 g/dL (32-36); Mean Corpuscular Hgb 26.7 pg (27.0-32.0); Mean Corpuscular Volume 91.1 fL (81-99); Mean Platelet Vol. 10.1 fl (6.2-12.0); Monocyte# 0.05 X10^3/uL; Monocyte% 1.3 % (0-10); NRBC Flagged by Analyzer 0 % (0-5); Neutrophil # 3.27 X10^3/uL (2.7-7.7); Neutrophil % 82.3 % (47-70); POSITIVE DIFFERENTIAL YES; Platelet Count 285 K/mm3 (150-450); RBC Distribution Width CV 14.6 % (11.6-14.6); RBC Distribution Width SD 48.8 fl (35.1-43.9)
[2024-03-02 06:30] LABS: ALB/GLOB Ratio 0.7 RATIO (0.9-2.4); AST(SGOT) 24 U/L (15-37); Alanine Aminotransfer ALT/SGPT 21 U/L (13-56); Alkaline Phosphatase 80 U/L (45-117); Anion Gap 6 (5-15); BUN 11 mg/dL (7-18); BUN/Creat Ratio 14.9 RATIO (10-20); Calcium,Total 9.2 mg/dL (8.5-10.1); Chloride 100 mmol/L (98-107); Creatinine, Serum 0.74 mg/dL (0.55-1.02); EST Glomerular Filtration Rate 83 mL/min (>60); Est Glom Filt Rate - Afr Amer 100 mL/min (>60); Globulin 4.4 g/dL (2.2-4.2); Glucose 165 mg/dL (74-106); Protein, Total 7.4 g/dL (6.4-8.2); Sodium Level 140 mmol/L (136-145)
--- NOTE | 2024-03-02 09:18 | PCM.PN.HOSP ---
Reason for Visit Reason for Visit: Diagnoses Acute and chronic respiratory failure with hypoxia (03/01/24) Acute and chronic respiratory failure with hypercapnia (03/01/24) Subjective Subjective Breathing better. Patient since been weaned down to her 5 L nasal cannula. Notes that more recently she has been having what she describes as choking associated with coughing. Denies that this is associated with eating or drinking, however but she will at times, get these coughing fits. Objective Data Objective Data Vital Signs: Vital Signs Temp Pulse Resp BP Pulse Ox O2 Del Method O2 Flow Rate 36.6 C 78 18 112/71 93 Trach Collar 8 03/02/24 06:00 03/02/24 07:14 03/02/24 07:14 03/02/24 06:00 03/02/24 06:00 03/02/24 06:00 03/02/24 06:00 FiO2 40 03/01/24 19:00 Oxygen Flow Rate (L/min) 8 Oxygen Delivery Method Trach Collar Weight: 59 kg Body Mass Index (BMI) 23.0 Intake & Output: Intake and Output for Last 24 Hours 02/29/24 03/01/24 03/02/24 23:59 23:59 23:59 Intake Total 802.5 / 802.5 Balance 802.5 / 802.5 Lab / Micro Data 03/02/24 05:39 03/02/24 05:39 Labs: Laboratory Results - last 24 hr 03/01/24 14:00: WBC 7.8, RBC 3.57 L, Hgb 9.5 L, Hct 32.9 L, MCV 92.2, MCH 26.6 L, MCHC 28.9 L, RDW Std Deviation 48.8 H, RDW Coeff of Deonte 14.6, Plt Count 323, MPV 9.9, Immature Gran % (Auto) 1.300 H, Neut % (Auto) 66.8, Lymph % (Auto) 21.0, [place]pherson % (Auto) 9.4, Eos % (Auto) 0.9, Baso % (Auto) 0.6, Absolute Neuts (auto) 5.2, Absolute Lymphs (auto) 1.63, Nucleated RBC % 0, PT 13.1, INR 1.0, APTT 26.6, Sodium 141, Potassium 4.2, Chloride 96 L, Carbon Dioxide 42.0 H, Anion Gap 3 L, BUN 12, Creatinine 1.08 H, Est GFR (MDRD) Af Amer 65, Est GFR (MDRD) Non-Af 53 L, BUN/Creatinine Ratio 11.1, Glucose 161 H, Lactic Acid 2.6 H*, Calcium 8.9, Total Bilirubin 0.20, AST 31, ALT 25, Alkaline Phosphatase 82, Troponin I High Sens 109 H, B-Natriuretic Peptide 457.0 H, Total Protein 7.0, Albumin 2.9 L, Globulin 4.1, Albumin/Globulin Ratio 0.7 L 03/01/24 18:55: Lactic Acid 0.8 03/02/24 05:39: WBC 4.0 L, RBC 3.60 L, Hgb 9.6 L, Hct 32.8 L, MCV 91.1, MCH 26.7 L, MCHC 29.3 L, RDW Std Deviation 48.8 H, RDW Coeff of Deonte 14.6, Plt Count 285, MPV 10.1, Immature Gran % (Auto) 1.800 H, Neut % (Auto) 82.3 H, Lymph % (Auto) 14.1 L, Mcpherson % (Auto) 1.3, Eos % (Auto) 0.0, Baso % (Auto) 0.5, Absolute Neuts (auto) 3.3, Absolute Lymphs (auto) 0.56 L, Nucleated RBC % 0, Sodium 140, Potassium 4.0, Chloride 100, Carbon Dioxide 34.0 H, Anion Gap 6, BUN 11, Creatinine 0.74, Estim Creat Clear Calc 54.90, Est GFR (MDRD) Af Amer 100, Est GFR (MDRD) Non-Af 83, BUN/Creatinine Ratio 14.9, Glucose 165 H, Calcium 9.2, Total Bilirubin 0.30, AST 24, ALT 21, Alkaline Phosphatase 80, Total Protein 7.4, Albumin 3.0 L, Globulin 4.4 H, Albumin/Globulin Ratio 0.7 L Micro: Microbiology 03/01/24 18:57 Mucosa - Nasopharyngeal Respiratory Panel (PCR) - Final 03/01/24 14:23 Mucosa - Nose SARS-CoV-2, Influenza & RSV (PCR) - Final ABG Data ABG results: ABG 03/01/24 14:23 Specimen Type ART Sample Site R Radial pH 7.36 Bicarbonate Actual 44.0 H Total CO2 46 Base Excess 19 H O2 Saturation 91 L O2 % 5.0 ABG pCO2 77.8 H* ABG pO2 67 L Royal Test Positive O2 Delivery Device Cannula Vent Mode Not entered Crit Call To/Read Back Yes Blood Gas Notified Whom Blood Gas Notified Time 14:25:19 Radiography Diagnostic Testing: Radiology Impression Chest X-Ray 03/01/24 14:30 IMPRESSION: Hyperinflation. The lungs are clear. Stable appearance of the tracheostomy. Electronically Signed: Vinny Mcghee MD at 14:52 EDT , Brain CT 03/01/24 15:15 IMPRESSION: Relatively stable age-related chronic changes of the brain. Electronically Signed: Luis Miguel Reyes DO at 16:49 EDT , Chest CTA 03/01/24 15:15 IMPRESSION: No demonstrated pulmonary embolism or arterial dissection. Electronically Signed: Luis Miguel Reyes DO at 17:00 EDT , Physical Exam Const alert and no apparent distress HEENT head/scalp atraumatic and moist oral mucous membranes Resp normal respiratory effort and no retractions Resp Narrative: Diminished breath sounds bilaterally Cardio regular rate, regular rhythm, S1 normal heart sound and S2 normal heart sound GI normal to inspection, nondistended, normoactive bowel sounds, soft to palpation, non-tender and non-distended Extremity normal to inspection and full ROM Neuro Sensorium / Orientation: awake and alert Assessment & Plan Assessment/Plan (1) Acute on chronic respiratory failure with hypoxia and hypercapnia: PLAN: Plan Acute on chronic hypoxic and hypercapnic respiratory failure Secondary to COPD exacerbation patient 82% on 5 L nasal cannula, given neb with improvement to 91% on 5 L now on 8 L via trach collar. ABG showed pCO2 of 77.8 with a PaO2 of 67, pH 7.36 CT of the chest showed no infiltrate or any emboli. COVID, influenza, RSV and respiratory panel negative. Blood culture pending. Wean oxygen as tolerated patient reporting choking but sounds like more coughing fits. But when her saying that it is choking. Will have speech therapy see her. Acute COPD exacerbation Continue with bronchodilators, methylprednisolone. Elevated troponin Likely due to demand ischemia from respiratory failure. Only 1 troponin thus far ordered and 109. Chronic conditions Anxiety-Patient has Lexapro and duloxetine listed on her home medication list however. She fill duloxetine 02/12 and has not filled Lexapro in several months-Continue duloxetine-Continue mirtazapine-Will continue hydroxyzine as needed Chronic normocytic anemia-Variable baseline but seems within range-No evidence of ongoing blood loss-Repeat in the a.m. TIO-Continue home NIPPV if applicable History of CVA with previous PEG tube placement-Continue aspirin and statin Previous heart failure reduced ejection fraction/Takotsubo cardiomyopathy-Patient most recently with echocardiogram 10/09/2022 that demonstrated EF 55 with normal diastole and apical hypokinesis, patient with recovered EF. Compensated at this time. GERD-Continue PPI DVT ppx: Lovenox subcu Discussed with the patient's brother at bedside. Charges/Coding Visit Charges Inpatient E&M: 06791 Subs Hosp L2
[2024-03-02] MEDS: Pantoprazole Sodium 40 MG Tablet PO (09:31)
[2024-03-02] MEDS: DULoxetine Hcl 30 MG Capsule PO (09:31)
[2024-03-02] MEDS: guaiFENesin 1,200 MG Tablet 1200 MG PO ×2 (09:31→20:18)
[2024-03-02] MEDS: Aspirin E.C. 81 MG Tablet PO (09:31)
[2024-03-02] MEDS: Amox/Clavulanate 875 MG Tablet PO ×2 (09:31→17:31)
[2024-03-02] MEDS: Enoxaparin 40 MG/0.4 ML Syringe SC (09:31)
[2024-03-02] MEDS: Albuterol 2.5 MG/3 ML VIAL.NEB. INHALATION (11:26)
--- NOTE | 2024-03-02 15:37 | CHAPLAIN ---
Type of Pastoral Visit _x__ Initial Visit ___ Follow-up Visit ___ On-call Visit ___ General Patient Visit ___ Spiritual Assessment ___ Family Conference ___ Bereavement ___ Rapid Response ___ Code Blue ___ Other (describe below) Pastoral Care Referral From _x__ Patient ___ Family ___ Nurse ___ Physician ___ Varnish Inspector ___ Hatchery Employee ___ Other (describe below) Sacrament/Intervention _x__ Active listening ___ Anointing ___ Judaism ___ Bereavement ___ Communion ___ Marlin exploration ___ _x__ Life review _x__ Prayer ___ Reconciliation ___ Sacrament of Sick _x__ Supportive presence ___ Wedding ___ Other (describe below) Pastoral Comments patient talks about her life and how she so much wants to get better and get home; pt admits being perplexed at why she gets sick so easily; pt shares thoughts about her family and the state of the nation; talked about worries and how to find acceptance and peace through prayer and good relationships
[2024-03-02] MEDS: hydrOXYzine PAM 25 MG Capsule PO (15:43)
--- NOTE | 2024-03-02 16:13 | CASEMGMT ---
Met with patient to complete FARLEY form. FARLEY form explained to patient who voiced understanding and signed form. Original form placed in pt?s chart and copy provided to patient. Carmen Butterfield, Discharge Planning As
--- NOTE | 2024-03-02 17:15 | CASEMGMT ---
Addendum entered by Genoveva Gutierrez 03/03/24 11:14: Noted 11/2023, palliative referal made to [facility] and appt was arranged for them to talk w/pt and dtr, Ameena. E-mail sent to [facility] yesterday inquiring if pt is active w/them. Email response recieved today, stating pt is not active w/[facility]. Original Note: RN SPIKE Assessment: RN SPIKE to room to meet with pt for initial transition planning/care coordination assessment. FINESSE LALA introduced self and role at [facility], pt voices understanding and consents to assessment. Pt is A/O x 3 at this time, but is forgetful and not able to and answers all questions accurately. Pt lying in bed in no distress. Pt gave FINESSE LALA permission to call her daughter, Ameena, to obtain further information and discuss her care. Care providers, pharmacy, and demographics verified/updated. Strata: 3 PCP:Dr Pineda Specialists: Ema Stevens, BATCH UNLOADER--pulmonology, [facility]/Cardiology Preferred Pharmacy: [facility] Insurance: [employer] [facility] Prescription Benefit: yes LW/HCPOA: Pt states she has not done HCPOA, but she would like to complete this while @ [facility], if possible and would like to name her daughter, Ameena, as her HCPOA. Farzaneh CRISTINA, made aware. When FINESSE LALA spoke w/Ameena she states pt has complete one @ another hospital, naming her (Ameena) as HCPOA and she thinks pt's brother, Antelmo, is 1st alternative, but she is not sure of this. She will try and locate these documents and states will call Farzaneh CRISTINA, if she finds them and also to talk w/her about pt completing them again if she cannot locate them. LNOK: Ameena Zhang, dtr. Antelmo, brother. Oscar Frank, sig other. Pt states she has 2 other adult children, Siva Major and Ginny Mayes. Living Arrangements: Pt lives with sig other, Oscar, in a one-story home w/no steps to enter. Pt states Oscar assists her w/ADL's and does the home mgnt tasks. Pt also states he does her trach care. When FINESSE LALA spoke w/Ameena, she states that [facility] has been doing trach care or pt's brother, Antelmo, has been doing it and she does not think Oscar does any trach care. Ameena states she also has done it on occasion. Ameena reports Oscar is not able to do everything he used to do and is sometimes forgetful himself. She states pt's brother, Antelmo, has stepped up and has been more helpful/supportive. Transportation: Oscar, Ameena, Antelmo. Ameena states either she or Antelmo go into appts w/pt. Oscar often goes with them but usually sits in his vehicle and does not usually go into the appts w/pt. DME: Pt has [employer] and oxygen at home through [employer]. Pt states she wears 5 l/m. Ameena states she thought she was only using 2 l/m. Per [employer], current orders are 2 l/m continuously. Pt reports she has portability and a pox and Ameena confirms someone can bring in the portable tank for pt to go home on @ dc. Pt also has nebulizer and FWW, but both pt and Ameena state pt has not been needing to use the FWW. Pt states she has a shower chair but does not use it. When FINESSE LALA spoke w/Ameena she states she does not think pt has a shower chair. She plans to call Oscar or Antelmo to inquire about this, as she would like her to have one. She was made aware pt's insurance does not typically cover for cost of a shower chair and made aware of several locations one can be purchased, if needed. She voices appreciation of the information. HHC/SNF: Pt has had [facility] in the past and has been to [facility] and [facility]. Pt is active w/[facility]. Ameena states she would like pt to resume w/[facility] and declines wanting list of other C options. Pt is agreeable as well. They think pt is only getting SN. Pt states if therapy recommends adding therapy she would be agreeable, but she does not think it will be needed. Ameena states she would like more trach care education for herself and family prior to [facility] discharging pt. FINESSE LALA advised her to contact [facility] to let them know so this can be done w/[facility]. Ameena states thinks pt has beginning stages of dementia, stating her long-term memory is more intact and seems to have difficulty w/short-term memory. She states she has been talking w/pt's physicians about this and may be having pt f/u with a neurologist for this in the near future. Pt prefers to discharge home w/sig chance, Oscar, and Ameena is agreeable to this. Pt and Ameena stated no further concerns/needs. CM to follow therapy. Plan: Home w/[facility] and family and sig other support. Korin HILLN RN CM
[2024-03-02] MEDS: Atorvastatin Calcium 40 MG Tablet PO (20:18)
[2024-03-02] MEDS: Zolpidem Tartrate 5 MG Tablet 10 MG PO (20:19)
[2024-03-02] MEDS: ARIPiprazole 2 MG Tablet PO (20:19)
[2024-03-02] MEDS: Mirtazapine 15 MG Tablet 7.5 MG PO (20:19)
[2024-03-03] VITALS (8 sets, daily range): BP systolic 96–126; BP diastolic 54–91; PULSE 84–91; RESP 18–20; TEMP 36–36.9; O2SAT 88–99; BMI 22.9
[2024-03-03] MEDS: 0.9% Saline Lock 10 ML Syringe IV ×2 (05:14→13:29)
[2024-03-03] MEDS: hydrOXYzine PAM 25 MG Capsule PO (06:16)
[2024-03-03] MEDS: Ipratropium/Albuterol Sulfate 3 ML AMPUL.NEB INHALATION (07:05)
[2024-03-03] MEDS: Aspirin E.C. 81 MG Tablet PO (08:00)
[2024-03-03 09:08] LABS: Phenytoin (Dilantin) Level <0.8 ug/mL (10.0-20.0)
--- NOTE | 2024-03-03 09:14 | PN.HOSP_ITS ---
Reason for Visit Reason for Visit: Diagnoses Acute and chronic respiratory failure with hypoxia (03/01/24) Acute and chronic respiratory failure with hypercapnia (03/01/24) Subjective Subjective Breathing better. Anxious to go home. Objective Data Objective Data Vital Signs: Vital Signs Temp Pulse Resp BP Pulse Ox O2 Del Method O2 Flow Rate 36.0 C L 84 18 110/60 99 Nasal Cannula 4 03/03/24 03:20 03/03/24 03:20 03/03/24 03:20 03/03/24 03:20 03/03/24 03:20 03/03/24 08:14 03/03/24 08:14 FiO2 40 03/01/24 19:00 Oxygen Flow Rate (L/min) 4 Oxygen Delivery Method Nasal Cannula Weight: 58.8 kg Body Mass Index (BMI) 22.9 Intake & Output: Intake and Output for Last 24 Hours 03/01/24 03/02/24 03/03/24 23:59 23:59 23:59 Intake Total 1582.5 / 1832.5 250 / 250 Output Total 425 / 625 200 / 200 Balance 1157.5 / 1207.5 50 / 50 Lab / Micro Data 03/02/24 05:39 03/02/24 05:39 Labs: Laboratory Results - last 24 hr 03/01/24 15:55: Phenytoin <0.8 L Micro: Microbiology 03/01/24 18:57 Mucosa - Nasopharyngeal Respiratory Panel (PCR) - Final 03/01/24 14:23 Mucosa - Nose SARS-CoV-2, Influenza & RSV (PCR) - Final Physical Exam Const alert and no apparent distress HEENT head/scalp atraumatic and moist oral mucous membranes Resp Resp Narrative: Diminished breath sounds bilaterally but slightly improved aeration from the . Cardio regular rate, regular rhythm, S1 normal heart sound and S2 normal heart sound GI normal to inspection, nondistended, normoactive bowel sounds, soft to palpation, non-tender and non-distended Extremity normal to inspection and full ROM Assessment & Plan Assessment/Plan (1) Acute on chronic respiratory failure with hypoxia and hypercapnia: PLAN: Plan Acute on chronic hypoxic and hypercapnic respiratory failure * Secondary to COPD exacerbation * patient 82% on 5 L nasal cannula, overall improved. Patient was ambulated on her normal 5 L with rest and activity and she was 98% with rest and 95% with activity. * ABG showed pCO2 of 77.8 with a PaO2 of 67, pH 7.36 * CT of the chest showed no infiltrate or any emboli. * COVID, influenza, RSV and respiratory panel negative. Blood culture pending. * Wean oxygen as tolerated * patient reporting choking but sounds like more coughing fits. But when her saying that it is choking. Seen by speech therapy where was noted the patient had some mild oropharyngeal dysphagia. Speech therapy recommending compensatory strategies with small bites, small sips, slow rate. Alternating bites and sips. Sitting upright and remaining upright for 30 minutes after intake. Acute COPD exacerbation * Continue with bronchodilators, methylprednisolone. Elevated troponin * Likely due to demand ischemia from respiratory failure. * Only 1 troponin thus far ordered and 109. Chronic conditions * Anxiety-Patient has Lexapro and duloxetine listed on her home medication list however. She fill duloxetine 02/12 and has not filled Lexapro in several months-Continue duloxetine-Continue mirtazapine-Will continue hydroxyzine as needed * Chronic normocytic anemia-Variable baseline but seems within range-No evidence of ongoing blood loss-Repeat in the a.m. * TIO-Continue home NIPPV if applicable * History of CVA with previous PEG tube placement-Continue aspirin and statin * Previous heart failure reduced ejection fraction/Takotsubo cardiomyopathy- Patient most recently with echocardiogram 10/09/2022 that demonstrated EF 55 with normal diastole and apical hypokinesis, patient with recovered EF. Compensated at this time. * GERD-Continue PPI DVT ppx: Lovenox subcu Discussed with the patient's brother at bedside.
[2024-03-03] MEDS: DULoxetine Hcl 30 MG Capsule PO (09:52)
[2024-03-03] MEDS: guaiFENesin 1,200 MG Tablet 1200 MG PO (09:52)
[2024-03-03] MEDS: Pantoprazole Sodium 40 MG Tablet PO (09:52)
[2024-03-03] MEDS: Metoprolol(XL)Succ 25 MG Tablet PO (09:52)
[2024-03-03] MEDS: Amox/Clavulanate 875 MG Tablet PO (09:52)
[2024-03-03] MEDS: Enoxaparin 40 MG/0.4 ML Syringe SC (09:53)
[2024-03-03] MEDS: Albuterol 2.5 MG/3 ML VIAL.NEB. INHALATION (10:00)
--- NOTE | 2024-03-03 10:24 | CASEMGMT ---
Discharge Planning HH resumption referral sent to [facility]. Carmen Butterfield DC Planning Asst.
[2024-03-03] MEDS: Potassium Chloride Oral Tablet 20 MEQ PO (11:00)
--- NOTE | 2024-03-03 14:20 | DS.PCM_ITS ---
Providers Date of Admission: 03/01/24 Primary Care Physician: Dr. Maryam Pineda MD Reason For Visit: COPD EXACERBATION Diagnosis Discharge Diagnosis (1) Acute on chronic respiratory failure with hypoxia and hypercapnia: Status: Chronic Code(s): J96.21 - Acute and chronic respiratory failure with hypoxia; J96.22 - Acute and chronic respiratory failure with hypercapnia Plan Acute on chronic hypoxic and hypercapnic respiratory failure * Secondary to COPD exacerbation * patient 82% on 5 L nasal cannula, overall improved. Patient was ambulated on her normal 5 L with rest and activity and she was 98% with rest and 95% with activity. * ABG showed pCO2 of 77.8 with a PaO2 of 67, pH 7.36 * CT of the chest showed no infiltrate or any emboli. * COVID, influenza, RSV and respiratory panel negative. Blood culture pending. * Wean oxygen as tolerated * patient reporting choking but sounds like more coughing fits. But when her saying that it is choking. Seen by speech therapy where was noted the patient had some mild oropharyngeal dysphagia. Speech therapy recommending compensatory strategies with small bites, small sips, slow rate. Alternating bites and sips. Sitting upright and remaining upright for 30 minutes after intake. Acute COPD exacerbation * Continue with bronchodilators, methylprednisolone. * Will change patient over to prednisone taper. Patient will need to follow-up with pulmonary. Elevated troponin * Likely due to demand ischemia from respiratory failure. * Only 1 troponin thus far ordered and 109. Chronic conditions * Anxiety-Patient has Lexapro and duloxetine listed on her home medication list however. She fill duloxetine 02/12 and has not filled Lexapro in several months-Continue duloxetine-Continue mirtazapine-Will continue hydroxyzine as needed * Chronic normocytic anemia-Variable baseline but seems within range-No evidence of ongoing blood loss-Repeat in the a.m. * TIO-Continue home NIPPV if applicable * History of CVA with previous PEG tube placement-Continue aspirin and statin * Previous heart failure reduced ejection fraction/Takotsubo cardiomyopathy- Patient most recently with echocardiogram 10/09/2022 that demonstrated EF 55 with normal diastole and apical hypokinesis, patient with recovered EF. Compensated at this time. * GERD-Continue PPI Medications at Discharge Home Medications cholecalciferol (vitamin D3) 25 mcg (1,000 unit) tablet (Vitamin D3) 25 mcg PO DAILY supplement 11/03/20 pantoprazole 40 mg tablet,delayed release (Protonix) 40 mg PO DAILY GERD 11/03/20 aripiprazole 2 mg tablet (Abilify) 2 mg PO .daily QHS mental health / sleep 08/25/22 atorvastatin 40 mg tablet 40 mg PO QHS cholesterol 08/25/22 metoprolol succinate 25 mg tablet,extended release 24 hr 25 mg PO DAILY blood pressure 08/25/22 phenytoin 100 mg/4 mL oral suspension 100 mg (4 mL) PO Q8 30 days #360 mL 10/12/22 duloxetine 30 mg capsule,delayed release 30 mg PO DAILY mental health 11/11/22 furosemide 20 mg tablet 20 mg PO BIDCM diuretic 11/11/22 mirtazapine 7.5 mg tablet 7.5 mg PO QHS #30 tabs 11/11/22 albuterol sulfate 2.5 mg/3 mL (0.083 %) solution for nebulization 2.5 mg (3 mL) inhalation Q2H PRN PRN Dyspnea, wheezing #180 mL 06/30/23 albuterol sulfate 90 mcg/actuation aerosol inhaler 2 inh inhalation Q4H #8.5 grams 06/30/23 fluticasone fur. 100 mcg-umeclid 62.5 mcg-vilant 25 mcg inhalat.powder (Trelegy Ellipta) 1 inh inhalation DAILY 30 days #60 ea 06/30/23 nystatin 100,000 unit/mL oral suspension 5 ml mucous membrane TID #250 mL 06/30/23 aspirin 81 mg tablet,delayed release (Adult Aspirin Regimen) 81 mg PO DAILY 11/15/23 escitalopram oxalate 20 mg tablet 20 mg PO DAILY 11/15/23 hydroxyzine pamoate 25 mg capsule 25 mg PO TID 11/15/23 ipratropium 0.5 mg-albuterol 3 mg (2.5 mg base)/3 mL nebulization soln 3 ml inhalation Q6H 11/15/23 zolpidem 10 mg tablet 10 mg PO QHS PRN insomnia 11/15/23 acetaminophen 325 mg tablet 650 mg (2 x 325 mg) PO Q4H PRN PRN Fever, pain 1- 04/13 #0 tabs 11/18/23 dextromethorphan-guaifenesin 30 mg-600 mg tablet extended [id number] hr (Mucinex DM) 2 tab PO BID 7 days #28 tabs 11/18/23 sennosides 8.6 mg-docusate sodium 50 mg tablet (Stool Softener-Stimulant Laxative) 2 tab PO BID PRN PRN Constipation #0 tabs 11/18/23 potassium chloride 20 mEq tablet,extended release(part/cryst) (Klor-Con M) 20 meq PO BID 01/28/24 amoxicillin 875 mg-potassium clavulanate 125 mg tablet 1 tab PO BIDCM #7 tabs 03/03/24 prednisone 10 mg tablet 10 mg PO DAILY #30 tabs 03/03/24 Hospital Course Operations None Procedures None Summary of Care Provided Minutes Spent on Discharge: 32 Hospital Course: Patient presents with hypoxic respiratory failure as well as a COPD exacerbation. Patient was treated with bronchodilators as well as methylprednisolone. Patient has improved well over the past 24 hours and I will be discharged home. She will continue with her bronchodilators as she was taking at home but also on a prednisone taper. Weight / BMI Weight Weight: 58.8 kg Body Mass Index (BMI) 22.9 ABG / Lab / Microbiology Data 03/02/24 05:39 03/02/24 05:39 Laboratory: Laboratory Results - last 24 hr 03/01/24 15:55: Phenytoin <0.8 L Microbiology: Microbiology 03/01/24 14:00 Blood Culture (Wb) - Anticubital Left Blood Culture - Preliminary No growth in 48 hours. 03/01/24 18:57 Mucosa - Nasopharyngeal Respiratory Panel (PCR) - Final 03/01/24 14:23 Mucosa - Nose SARS-CoV-2, Influenza & RSV (PCR) - Final D/C Instructions Discharge Diet: No restrictions Meaningful Use Info Meaningful Use Meaningful Use Diagnoses (Choose all that apply): None applicable Ischemic Stroke Statin Dosing Therapy Reference: STATIN DOSE THERAPY REFERENCE: * Patients > 75 years receive moderate or high dose statin therapy. * Patients 75 years or YOUNGER should receive HIGH intensity statin dose unless contraindicated. You will be required to document reason for non-treatment if statin daily dose does not meet guidelines. HIGH DOSE STATIN THERAPY DAILY Atorvastatin > than or = to 40 mg Rosuvastatin > than or = to 20 mg Amlodipine + Atorvastatin > than or = to 2.5/40 mg Ezetimibe + Simvastatin 10/80 mg Simvastatin 80mg Discharge Plan Admission Admit Date/Time: 03/01/24 17:20 Primary Reason for Your Visit: COPD exacerbation Attending Provider: Pete Su Primary Care Provider: Maryam Pineda Consulting Providers: Elenita Barber Instructions Additional Instructions / Restrictions: Please take your steroids and antibiotics for your flareup of COPD. You were seen by speech therapy who made some recommendations as follows for your diet: Small bites, small sips, slow rate. Alternate bites and sips. Sit upright and remain upright for 30 minutes after eating. Discharge Orders/Prescriptions Prescriptions: New amoxicillin-pot clavulanate 875-125 mg Tablet 1 tab PO BIDCM Qty: 7 0RF prednisone 10 mg tablet 10 mg PO DAILY Qty: 30 0RF Rx Instructions: 4 tabs daily for 3 days, then 3 tabs daily for 3 days, then 2 tabs daily for 3 days, then 1 tab daily for 3 days Continued atorvastatin 40 mg tablet 40 mg PO QHS MDD 40 metoprolol succinate 25 mg tablet extended release 24 hr 25 mg PO DAILY MDD 25 aripiprazole [Abilify] 2 mg tablet 2 mg PO .daily QHS MDD 2mg albuterol sulfate 90 mcg/actuation HFA aerosol inhaler 2 inh inhalation Q4H Qty: 8.5 11RF albuterol sulfate 2.5 mg /3 mL (0.083 %) solution for nebulization 2.5 mg inhalation Q2H PRN PRN (Reason: Dyspnea, wheezing) Qty: 180 6RF Trelegy Ellipta 100-62.5-25 mcg blister with device 1 inh INHALATION DAILY 30 Days Qty: 60 6RF nystatin 100,000 unit/mL suspension 5 ml mucous membrane TID Qty: 250 1RF Rx Instructions: swish and swallow 5 cc three times per day for 10 days pantoprazole [Protonix] 40 mg Tablet,Delayed Release (Dr/Ec) 40 mg PO DAILY cholecalciferol (vitamin D3) [Vitamin D3] 25 mcg (1,000 unit) Tablet 25 mcg PO DAILY phenytoin 100 mg/4 mL Suspension 100 mg PO Q8 30 Days Qty: 360 2RF furosemide 20 mg tablet 20 mg PO BIDCM MDD 40 duloxetine 30 mg capsule,delayed release(DR/EC) 30 mg PO DAILY MDD 60 mirtazapine 7.5 mg tablet 7.5 mg PO QHS Qty: 30 0RF potassium chloride [Klor-Con M20] 20 mEq tablet,ER particles/crystals 20 meq PO BID aspirin [Adult Aspirin Regimen] 81 mg tablet,delayed release (DR/EC) 81 mg PO DAILY zolpidem 10 mg tablet 10 mg PO QHS PRN (Reason: insomnia) ipratropium-albuterol 0.5 mg-3 mg(2.5 mg base)/3 mL solution for nebulization 3 ml inhalation Q6H Rx Instructions: EVERY 6 HOURS WHILE AWAKE hydroxyzine pamoate 25 mg capsule 25 mg PO TID escitalopram oxalate 20 mg tablet 20 mg PO DAILY acetaminophen 325 mg Tablet 650 mg PO Q4H PRN PRN (Reason: Fever, pain 1-04/13) Qty: 0 0RF sennosides-docusate sodium [Stool Softener-Stimulant Laxat] 8.6-50 mg Tablet 2 tab PO BID PRN PRN (Reason: Constipation) Qty: 0 0RF Mucinex DM 30-600 mg Tablet Extended Release 12 Hr 2 tab PO BID 7 Days Qty: 28 0RF Discontinued prednisone 20 mg tablet 40 mg PO DAILY 5 Days Qty: 10 0RF Referrals / Follow Up: Pulmonary Medicine [facility] [Provider Group] - Within 1 Month Maryam Pineda MD [Primary Care Provider] - Within 2 Weeks Disposition Disposition (needs filled in before D/C Order can be placed): Home, Self Care Charges/Coding Visit Charges Inpatient E&M: 72652 Disch Hosp >30min
--- NOTE | 2024-03-03 14:51 | CASEMGMT ---
Pt has an order for DC. This RN CM contacted [facility] via [employer] who states that they can resume care on 03/07. 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 Pt states that this is what she normally wears but the current order was for 2L continuous. Updated Rx signed by Dr. Su and sent to [facility] at this time via [employer]. DC plan updated. Pt states that she is content with this plan and denies further needs at this time.
== END 2024-03-03 14:28 | disposition home or self-care (01) ==
LOC: ED 16:06 → PCU 17:21
PROVIDERS: Admitting Provider Internal Medicine; Emergency Provider Emergency Medicine; PCP Internal Medicine
DX: J44.1 Chronic obstructive pulmonary disease with (acute) exacerbation (principal); Z93.0 Tracheostomy status; J96.22 Acute and chronic respiratory failure with hypercapnia; J96.21 Acute and chronic respiratory failure with hypoxia; I11.0 Hypertensive heart disease with heart failure; I50.32 Chronic diastolic (congestive) heart failure; G40.909 Epilepsy, unspecified, not intractable, without status epilepticus; I42.8 Other cardiomyopathies; Z86.73 Personal history of transient ischemic attack (TIA), and cerebral infarction without residual deficits; E87.20 Acidosis, unspecified; R79.89 Other specified abnormal findings of blood chemistry; Z87.891 Personal history of nicotine dependence; Z79.82 Long term (current) use of aspirin; Z79.51 Long term (current) use of inhaled steroids; Z11.52 Encounter for screening for COVID-19; E78.5 Hyperlipidemia, unspecified; Z79.899 Other long term (current) drug therapy; Z99.81 Dependence on supplemental oxygen; F41.9 Anxiety disorder, unspecified
CPT/HCPCS: 99285; 31720; 36415; 36600; 70450; 71045; 71275; 80053; 82803; 83605; 83880; 84484; 85025; 85610; 85730; 87040; 87631; 87633; 92526; 92610; 93005; 94640; 94667; 94762; 97162; 97166; J7030; Q9967; A4216

== ENCOUNTER 2024-03-03 23:09 | Inpatient (IN) | payer MEDICARE, SELFPAY ==
--- NOTE | 2024-03-03 00:35 | RAD_ITS ---
EXAM: XR CHEST, 1 VIEW CLINICAL INDICATION: sob TECHNIQUE: Frontal view of the chest. COMPARISON: Previous chest radiographs of 03/01/2024 and 01/28/2024. FINDINGS: LUNGS AND PLEURAL SPACES: Lungs remain hyperinflated. Since the study of 3 days ago, an approximately 4 cm diameter rounded area of airspace disease has developed laterally within the right upper lobe, indicating pneumonia. No acute infiltrates on the left. No pleural effusion. No pneumothorax. HEART: Unremarkable. Cardiac silhouette not enlarged. Normal pulmonary vasculature. MEDIASTINUM: Central airways and mediastinal contour are unremarkable. BONES/JOINTS: No acute osseous abnormality. SOFT TISSUES: Vascular calcification is present within the neck. TUBES, LINES AND DEVICES: Tracheostomy tube remains in place. RAD/Chest 1 View (Portable) IMPRESSION: Interval development of patchy right upper lobe pneumonia. Electronically Signed: Rusty Rodriguez MD at 1:43 EDT ,
[2024-03-03 23:11] VITALS: BP 104/53; PULSE 126; RESP 36; TEMP 39.4; O2SAT 95; BMI 23.4
[2024-03-03 23:14] VITALS: BP 104/53; PULSE 129; RESP 37; TEMP 39.4; O2SAT 95
--- OUTSIDE RECORDS SUMMARY | 2024-03-03 23:27 | XMS RPT_ITS | CCD ---
Author Organization [facility] Team Providers Care Business Strategy Manager Name Role Phone DYLON MOONEY Unavailable Unavailable Joy Stahl Unavailable Unavailable Joy Stahl Unavailable Unavailable DYLON MOONEY Unavailable Unavailable DYLON MOONEY Unavailable Unavailable Joy Stahl Unavailable Unavailable PROVIDER, UNKNOWN Unavailable Unavailable Joy Stahl Unavailable Unavailable Sarah Camargo Unavailable Unavailable DR JOY STAHL MD Primary Care Physician Maryam Franco MD Primary Care Provider PROVIDER, UNKNOWN Attending Unavailable PROVIDER, UNKNOWN Admitting Unavailable Maryam Franco MD Primary Care Provider RADHA DAY Referring Unavailable HINDUJA VERONICA P Admitting Unavailable CONSULT, TRAUMA Consulting Unavailable MARYAM FRANCO Primary Care Unavailable SEVERO JURADO Attending Unavailable MARYAM FRANCO Primary Care Unavailable SEVERO JURADO Attending Unavailable SEVERO JURADO Admitting Unavailable MARYAM FRANCO Primary Care Unavailable DR JOY STAHL MD Primary Care Physician Maryam Franco MD Primary Care Provider Maryam Franco MD Primary Care Provider MARYAM FRANCO Primary Care Unavailable ZAMARRIPA, CARRILLO Y Admitting Unavailable ZAMARRIPA CARRILLO Y Attending Unavailable LONNIE FROST Consulting Unavailable Maryam Franco MD Primary Care Provider [phone] Seth Chawla RPh Unavailable Geo KILPATRICK, Jordan Unavailable Unavailable MALLLU, VINCE Attending Unavailable HARMEET, ALI Admitting Unavailable CARLTON OSBORN Consulting Unavailable MARYAM FRANCO Primary Care Unavailable Joy Stahl Primary Care Provider Miriam MENDES, Maryam Primary Care Provider URIEL MENDES, KAILEY Attending Unavailable FAVIO MENDES, DR HAMILTON Primary Care Unavailab de FARIAS MD, DR COURTNEY MIKE Consulting Unavaila nohemi SLOAN MD, JENNA Marino Consulting Unavailable Joy Stahl Primary Care Provider Maryam Franco MD C Primary Care Provider ISSA HERMAN Attending Unavailable GANTA, MARYAM Primary Care Unavailable DEX HDZ Attending Unavailable ISSA HERMAN Referring Unavailable GANTA, MARYAM Primary Care Unavailable ISSA HERMAN Attending Unavailable GANTA, MARYAM Primary Care Unavailable DENBOW, JOANIE Attending Unavailable GANTA, MARYAM Primary Care Unavailable DENBOW, JOANIE Referring Unavailable GANTA, MARYAM Primary Care Unavailable DENBOW, JOANIE Attending Unavailable GANTA, MARYAM Primary Care Unavailable LISE MAJOR Attending Unavailable GANTA, MARYAM Primary Care Unavailable OLDER, JOAN Referring Unavailable GANTA, MARYAM Primary Care Unavailable OLDER, JOAN Attending Unavailable OLDER, JOAN Referring Unavailable GANTA, MARYAM Primary Care Unavailable OLDER, JOAN Referring Unavailable GANTA, MARYAM Primary Care Unavailable OLDER, JOAN Attending Unavailable GANTA, MARYAM Primary Care Unavailable GANTA, MARYAM Attending Unavailable GANTA, MARYAM Primary Care Unavailable GANTA, MARYAM Attending Unavailable GANTA, MARYAM Primary Care Unavailable NONE, PCP Referring Unavailable JACKIE JUDGE Consulting Unavailable PEPE DELAROSA Attending Unavailable GANTA, MARYAM Primary Care Unavailable ALAYNA GAXIOLA Admitting Unavailable [facility], JOY Primary Care Unavailable REJI, CHARLENE Referring Unavailable JOY STAHL Primary Care Unavailable PAUL MCBRIDE Consulting Unavailable CRYS CANSECO Attending Unavailable REJI, CHARLENE Admitting Unavailable NONE, PCP Referring Unavailable Allergies Allergy Classification Reported Allergen(s) Allergy Type Date of Onset Reaction(s) Facility guaiFENesin / Phenylephrine (6 sources) guaiFENesin / Phenylephrine Drug Allergy 5 Intolerance [facility] Work Phone: (1 source) traMADol; Translations: [TRAMADOL] Drug Allergy [facility] (20 sources) PHENYLEPHRINE-GUA IFENESIN; Translations: [PHENYLEPHRINE- AIFENESIN] Propensity to adverse reactions (disorder) 5 Intolerance [facility] (20 sources) TETANUS VACCINES AND TOXOID; Translations: [TETANUS VACCINES AND TOXOID] Propensity to adverse reactions (disorder) 5 Swelling [facility] (2 sources) tetanus toxoid vaccine, inactivated; Translations: [tetanus toxoid] Drug Allergy [facility] (disorder), Swelling (finding) [facility] (1 source) Tetanus immune globulin Drug Allergy 2 Hives [facility] (4 sources) Tetanus vaccine Propensity to adverse reactions 5 Swelling [facility] Medications Current Medications Medication Drug Class(es) Dates Sig (Normalized) Sig (Original) acetaminophen 325 mg / HYDROcodone bitartrate 5 mg oral tablet (2 sources) Opioid Agonist Start: 02-16-2022 End: 02-23-2022 take 1 tablet by mouth every eight hours as needed for pain HYDROcodone-aceta minophen (NORCO) 5-325 mg per tablet Indications: Pain at surgical incision Take 1 tablet by mouth every 8 hours as needed for pain for up to 7 days. 21 tablet 0 02/16/2022 02/23/2022 Active Comment on above: Take 1 tablet by mari every 8 hours as needed for pain for up to 7 days. [id number] 200 actuat albuterol 0.09 mg/actuat metered dose inhaler (20 sources) beta2-Adrenergic Agonist Start: 02-06-2024 End: 02-13-2024 Start: 01-27-2022 End: 10-12-2023 Start: 01-09-2022 End: 01-27-2022 take 2 puff(s) by inhalation once daily as needed 2 puff, Inhalation, 4 TIMES DAILY NEEDED, Starting on 01/17/22 at 1245, Until Tu01/27/22 at 1901, Shortness of Breath Wait at least one(1) full minute between inhalations Start: 10-01-2016 End: 02-15-2024 take 2 puff(s) by inhalation every six hours as needed albuterol HFA (PROAIR HFA) 90 mcg/actuation inhaler Inhale 2 Puffs as instructed every 6 hours as needed. 1 Each 5 02/15/2024 Active Start: 07-01-2016 take 1 dose by inhal ation every four hours as needed for wheezing ProAir HFA MDI (90 mcg/inh) inhalation aerosol Dose = 2 puff(s), Inhalation, q4h, PRN as needed for wheezing Start Date: 07/01/16 Status: Ordered Start: 07-18-2015 albuterol HFA (PROVENTIL HFA, VENTOLIN HFA) 90 mcg/actuation inhaler EVERY 6 HOURS NEEDED 0 07/18/2015 Active albuterol (PROVE NTIL) 2.5 mg /3 mL (0.083 %) nebulizer solution Use 2.5 mg via nebulizer as directed. Active Comment on above: Inhale 2 Puffs as in structed every 6 hours as needed. EVERY 6 HOURS NEE DED Use 2.5 mg via nebul izer as directed. albuterol 0.833 mg/ml / ipratropium bromide 0.167 mg/ml inhalation solution (20 sources) Anticholinergic, beta2-Adrenergic Agonist Start: 10-12-2023 End: 10-11-2024 Start: 09-28-2023 End: 10-12-2023 3 mL, Nebulization, Every 4 hours, First dose (after last modification) on Wed09/28/23 at 1245 Start: 09-26-2023 End: 09-28-2023 3 mL, Nebulization, 3 times daily, First dose on Wed09/26/23 at 2000 Start: 06-30-2023 End: 02-15-2024 take 1 dose by inhalation every six hours ipratropium-albuterol (DUONEB) 0.5 mg-3 mg(2.5 mg base)/3 mL nebu INHALE 1 vial via NEBULIZER EVERY 6 HOURS while awake 120 mL 3 02/15/2024 Active Comment on above: INHALE 1 vial via NE BULIZER EVERY 6 HOURS while awake albuterol MDI (90 mcg/inh) CFC free inhalation aerosol (1 source) Start: 02-10-20 take 2 puff(s) by inhalation four times daily as needed albuterol MDI (90 mcg/inh) CFC free inhalation aerosol 2 puff(s), Inhalation, QID, PRN Shortness of breath (SOB), # 6.7 gram(s), 0 Refill(s), Pharmacy: [facility], 160, cm, 01/27/22 19:40:00 EDT, Height Start Date: 02/09/22 Status: Ordered Aluminum Hydroxide / Magnesium Hydroxide / Simethicone (1 source) Start: 02-10-20 Maalox Oral, q6h, PRN Indigestion, 0 Refill(s) Start Date: 02/09/22 Status: Ordered Artificial Tears (1 source) Start: 02-10-20 take 1 dose into the eye(s) twice daily as needed Artificial Tears Dose = 2 drop(s), Eyes, both, BID, PRN Dry eyes, 0 Refill(s) Start Date: 02/09/22 Status: Ordered atorvastatin 40 mg oral tablet (20 sources) HMG-CoA Reductase Inhibitor Start: [facility] PHOSPHATE, INORGANICon 01-25 Phosphorous 4.6 mg/dL Normal 2.2-4.6 [facility] Comment on above: Performed By: #### I PB, CHM7, MGO #### [facility] (DEFAULT) [address] [address] Phosphate [Mass/Vol] 4.6 mg/dL 2.2 - 4 .6 mg/dL [facility] URINALYSIS REFLEX TO CULTURE PERFORMABLEon 01-25-2022 Appearance (U) Clear Normal Clear [facility] Comment on above: Order Comment: For i ndwelling catheters, specimen collection is acceptable on catheter day 1 and 2 only. ? Performed By: #### U [id number] #### [facility] (DEFAULT) [address] [address] Bacteria ABSENT Normal ABSENT [facility] Comment on above: Order Comment: For i ndwelling catheters, specimen collection is acceptable on catheter day 1 and 2 only. ? Performed By: #### U [id number] #### [facility] (DEFAULT) [address] [address] Blood Urine Negative Normal Negative [facility] Comment on above: Order Comment: For i ndwelling catheters, specimen collection is acceptable on catheter day 1 and 2 only. ? Performed By: #### U [id number] #### [facility] (DEFAULT) [address] [place] [address] Color (U) Yellow Normal Yellow [facility] Comment on above: Order Comment: For i ndwelling catheters, specimen collection is acceptable on catheter day 1 and 2 only. ? Performed By: #### U [id number] #### [facility] (DEFAULT) [address] [place] [address] Glucose Ql (U) Negative Normal Negative [facility] Comment on above: Order Comment: For i ndwelling catheters, specimen collection is acceptable on catheter day 1 and 2 only. ? Performed By: #### U [id number] #### [facility] (DEFAULT) [address] [place] [address] Ketones Ql (U) Negative Normal Negative [facility] Comment on above: Order Comment: For i ndwelling catheters, specimen collection is acceptable on catheter day 1 and 2 only. ? Performed By: #### U [id number] #### [facility] (DEFAULT) [address] [place] [address] Leukocyte esterase Test strip Ql (U) Trace Abnormal Negative [facility] Comment on above: Order Comment: For i ndwelling catheters, specimen collection is acceptable on catheter day 1 and 2 only. ? Performed By: #### U [id number] #### [facility] (DEFAULT) [address] [place] [address] Nitrites Urine Negative Normal Negative [facility] Comment on above: Order Comment: For i ndwelling catheters, specimen collection is acceptable on catheter day 1 and 2 only. ? Performed By: #### U [id number] #### [facility] (DEFAULT) [address] [place] [address] pH (U) 5.5 [pH] Normal 5.0-7.0 [facility] Comment on above: Order Comment: For i ndwelling catheters, specimen collection is acceptable on catheter day 1 and 2 only. ? Performed By: #### U [id number] #### [facility] (DEFAULT) [address] [address] Protein Urine Negative Normal Negative [facility] Comment on above: Order Comment: For i ndwelling catheters, specimen collection is acceptable on catheter day 1 and 2 only. ? Performed By: #### U [id number] #### [facility] (DEFAULT) [address] [address] RBC Urine 0-2 Normal 0-2 [facility] Comment on above: Order Comment: For i ndwelling catheters, specimen collection is acceptable on catheter day 1 and 2 only. ? Performed By: #### U [id number] #### [facility] (DEFAULT) [address] [address] Specific [place] Urine 1.008 Normal 1.001-1.035 [facility] Comment on above: Order Comment: For i ndwelling catheters, specimen collection is acceptable on catheter day 1 and 2 only. ? Performed By: #### U [id number] #### [facility] (DEFAULT) [address] [address] Squamous/Epithelial Cells 2-5/hpf = 2+ Normal 1/hpf = 1+, 2-5/hpf = 2+, 0/hpf = 0+, ABSENT [facility] Comment on above: Order Comment: For i ndwelling catheters, specimen collection is acceptable on catheter day 1 and 2 only. ? Performed By: #### U [id number] #### [facility] (DEFAULT) [address] [address] Urobilinogen Urine 0.2 E.U./dL Normal 0.2 E.U/d L, 1.0 E.U/dL [facility] Comment on above: Order Comment: For i ndwelling catheters, specimen collection is acceptable on catheter day 1 and 2 only. ? Performed By: #### U [id number] #### [facility] (DEFAULT) [address] [place] [address] WBC Urine 0-5 Normal 0-5 [facility] Comment on above: Order Comment: For i ndwelling catheters, specimen collection is acceptable on catheter day 1 and 2 only. ? Performed By: #### U [id number] #### [facility] (DEFAULT) [address] [place] [address] Appearance (U) [facility] Bacteria LM Ql (Urine sed) ABSENT ABSENT [facility] Color (U) Yellow Yellow [facility] Epithelial cells.squamous LM Ql (Urine sed) 2-5/hpf = 2+ 1/hpf = 1+, 2-5/hpf = 2+, 0/hpf = 0+, ABSENT [facility] Glucose Test strip (U) [Mass/Vol] Negative Negative [facility] Interpretation and review of laboratory results Abnormal [facility] Ketones (U) [Mass/Vol] Negative Negative [facility] Leukocyte esterase Test strip Ql (U) Trace Abnormal Negative [facility] Nitrite Ql (U) Negative Negative [facility] pH (U) 5.5 [pH] 5.0 - 7.0 [facility] Protein (U) [Mass/Vol] Negative Negative [facility] RBC (U) [#/Vol] Negative Negative [facility] RBC LM.HPF (Urine sed) [#/Area] 0-2 0 - 2 /HPF [facility] Specific gravity (U) [Rel density] 1.008 [facility] Urobilinogen (U) [Mass/Vol] 0.2 E.U./dL 0.2 E.U/dL, 1.0 E.U/dL [facility] WBC LM.HPF (Urine sed) [#/Area] 0-5 0 - 5 /HPF [facility] CBC,PLATELETSon 01-24-2022 Hematocrit (Bld) [Volume fraction] 26.5 % Low 34.9-44.3 [facility] Comment on above: Performed By: #### X M #### [facility] (DEFAULT) [address] [place] [address] Hemoglobin (Bld) [Mass/Vol] 8.1 g/dL Low 11.4-15.2 [facility] Comment on above: Performed By: #### X M #### [facility] (DEFAULT) [address] [place] [address] MCV (RBC) [Entitic vol] 87.7 fL Normal 79.6-97.7 [facility] Comment on above: Performed By: #### X M #### [facility] (DEFAULT) [address] [place] [address] Mean Cell Hgb 26.8 pg Normal 25.9-33.9 [facility] Comment on above: Performed By: #### X M #### [facility] (DEFAULT) [address] [place] [address] Mean Cell Hgb Conc 30.6 g/dL Low 31.4-35.9 [facility] Comment on above: Performed By: #### X M #### [facility] (DEFAULT) [address] [place] [address] Platelet mean volume (Bld) [Entitic vol] 9.4 fL Normal 8.5-12.2 [facility] Comment on above: Performed By: #### X M #### [facility] (DEFAULT) [address] [place] [address] Platelets (Bld) [#/Vol] 459 10*3/uL High 150-393 [facility] Comment on above: Performed By: #### X M #### [facility] (DEFAULT) [address] [place] [address] RBC (Bld) [#/Vol] 3.02 10*6/uL Low 3.91-5.04 [facility] Comment on above: Performed By: #### X M #### [facility] (DEFAULT) [address] [place] [address] RBC Distribution 17.4 % High 10.8-14.9 [facility] Comment on above: Performed By: #### X M #### [facility] (DEFAULT) [address] [place] [address] WBC (Bld) [#/Vol] 10.98 10*3/uL Normal 3.99-11.19 [facility] Comment on above: Performed By: #### X M #### [facility] (DEFAULT) [address] [place] [address] Erythrocyte distribution width (RBC) [Ratio] 17.4 % High 10.8 - 14.9 % [facility] Hematocrit (Bld) [Volume fraction] 26.5 % Low 34.9 - 44.3 % [facility] Hemoglobin (Bld) [Mass/Vol] 8.1 g/dL Low 11.4 - 15.2 g/dL [facility] Interpretation and review of laboratory results Abnormal [facility] MCH (RBC) [Entitic mass] 26.8 pg 25.9 - 33.9 pg [facility] MCHC (RBC) [Mass/Vol] 30.6 g/dL Low 31.4 - 35.9 g/dL [facility] MCV (RBC) [Entitic vol] 87.7 fL 79.6 - 97.7 fL [facility] Platelet mean volume (Bld) [Entitic vol] 9.4 fL 8.5 - 12.2 fL [facility] Platelets (Bld) [#/Vol] 459 10*3/uL High 150 - 393 K/uL [facility] RBC (Bld) [#/Vol] 3.02 10*6/uL Low [facility] WBC (Bld) [#/Vol] 10.98 10*3/uL 3.99 - 11 .19 K/uL [facility] CHEM 7 (LYTES,BUN,CREA,GLUC) on 01-24-2022 Anion gap [Moles/Vol] 11 mmol/L Normal 7-17 [facility] Comment on above: Performed By: #### T YPEC #### [facility] (DEFAULT) [address] [place] [address] Chloride [Moles/Vol] 101 mmol/L Normal 98-108 [facility] Comment on above: Performed By: #### T YPEC #### [facility] (DEFAULT) [address] [place] [address] CO2 [Moles/Vol] 31 mmol/L Normal 21-31 [facility] Comment on above: Performed By: #### T YPEC #### [facility] (DEFAULT) [address] [place] [address] Creatinine [Mass/Vol] 0.50 mg/dL Normal 0.50-1.20 [facility] Comment on above: Performed By: #### T YPEC #### [facility] (DEFAULT) [address] [place] [address] eGFR, CKD-EPI, Female >90 Normal >=60 [facility] Comment on above: Result Comment: Repo rted eGFR is based on the CKD-EPI 2020 equation using creatinine, age, and sex. Performed By: #### T YPEC #### [facility] (DEFAULT) [address] [place] [address] Glucose [Mass/Vol] 99 mg/dL Normal 70-99 [facility] Comment on above: Performed By: #### T YPEC #### [facility] (DEFAULT) [address] [place] [address] Osmolality [Osmolality] 288 mosm/kg Normal 278-305 [facility] Comment on above: Performed By: #### T YPEC #### [facility] (DEFAULT) [address] [address] Potassium [Moles/Vol] 3.8 mmol/L Normal 3.5-5.0 [facility] Comment on above: Performed By: #### T YPEC #### [facility] (DEFAULT) [address] [place] [address] Sodium [Moles/Vol] 139 mmol/L Normal 135-145 [facility] Comment on above: Performed By: #### T YPEC #### [facility] (DEFAULT) [address] [place] [address] Urea nitrogen [Mass/Vol] 7 mg/dL Normal 7-25 [facility] Comment on above: Performed By: #### T YPEC #### [facility] (DEFAULT) [address] [place] [address] Urea nitrogen/Creatinine [Mass ratio] 14 mg/mg Normal [facility] Comment on above: Performed By: #### T YPEC #### [facility] (DEFAULT) [address] [place] [address] Anion gap [Moles/Vol] 11 mmol/L 7 - 17 mmol/L [facility] Chloride [Moles/Vol] 101 mmol/L 98 - 10 8 mmol/L [facility] CO2 [Moles/Vol] 31 mmol/L 21 - 31 mmol/L [facility] Creatinine [Mass/Vol] 0.50 mg/dL 0.50 - 1.20 mg/dL [facility] GFR/1.73 sq M.predicted CKD-EPI (S/P/Bld) [Vol rate/Area] >90 >=60 mL/min/1.73m 2 [facility] Glucose [Mass/Vol] 99 mg/dL 70 - 99 mg/dL [facility] Osmolality Calc [Osmolality] 288 [facility] Potassium [Moles/Vol] 3.8 mmol/L 3.5 - 5.0 mmol/L [facility] Sodium [Moles/Vol] 139 mmol/L 135 - 145 mmol/L [facility] Urea nitrogen [Mass/Vol] 7 mg/dL 7 - 25 mg/dL [facility] Urea nitrogen/Creatinine [Mass ratio] 14 mg[facility] IONIZ[facility] CALCI[facility], WHOLE BLOOD on 01-24-2022 ICA 4.77 mg/dL Normal 4.60-5.30 [facility] Comment on above: Performed By: #### I [id number], MGO #### [facility] (DEFAULT) [address] [place] [address] IONIZED CALCIUM, WHOLE BLOOD Ordered By: Theresa Hooper on 01-24-2022 Calcium.ionized (Bld) [Moles/Vol] 4.77 mg/dL 4.60 - 5.30 mg/dL [facility] Interpretation and review of laboratory results Normal [facility] MAGNESIUMon 01-24-2022 Magnesium [Mass/Vol] 1.7 mg/dL Normal 1.6-2.6 [facility] Comment on above: Performed By: #### T YPEC #### [facility] (DEFAULT) [address] [place] [address] Magnesium [Mass/Vol] 1.7 mg/dL 1.6 - 2 .6 mg/dL [facility] No Panel Informationon 01-24 Interpretation and review of laboratory results Normal [facility] PHOSPHATE, INORGANICon 01-24 Phosphorous 3.6 mg/dL Normal 2.2-4.6 [facility] Comment on above: Performed By: #### T YPEC #### [facility] (DEFAULT) [address] [place] [address] Phosphate [Mass/Vol] 3.6 mg/dL 2.2 - 4 .6 mg/dL [facility] CBC,PLATELETSon 01-23-2022 Hematocrit (Bld) [Volume fraction] 26.3 % Low 34.9-44.3 [facility] Comment on above: Performed By: #### I PB CHM7, MGO #### [facility] (DEFAULT) [address] [place] [address] Hemoglobin (Bld) [Mass/Vol] 7.7 g/dL Low 11.4-15.2 [facility] Comment on above: Performed By: #### I PB CHM7, MGO #### [facility] (DEFAULT) [address] [place] [address] MCV (RBC) [Entitic vol] 92.0 fL Normal 79.6-97.7 [facility] Comment on above: Performed By: #### I PB, CHM7, MGO #### [facility] (DEFAULT) [address] [place] [address] Mean Cell Hgb 26.9 pg Normal 25.9-33.9 [facility] Comment on above: Performed By: #### I PB, CHM7, MGO #### [facility] (DEFAULT) [address] [place] [address] Mean Cell Hgb Conc 29.3 g/dL Low 31.4-35.9 [facility] Comment on above: Performed By: #### I PB, CHM7, MGO #### [facility] (DEFAULT) [address] [place] [address] Platelet mean volume (Bld) [Entitic vol] 9.6 fL Normal 8.5-12.2 [facility] Comment on above: Performed By: #### I PB, CHM7, MGO #### [facility] (DEFAULT) [address] [place] [address] Platelets (Bld) [#/Vol] 399 10*3/uL High 150-393 [facility] Comment on above: Performed By: #### I PB, CHM7, MGO #### [facility] (DEFAULT) [address] [place] [address] RBC (Bld) [#/Vol] 2.86 10*6/uL Low 3.91-5.04 [facility] Comment on above: Performed By: #### I PB, CHM7, MGO #### [facility] (DEFAULT) [address] [place] [address] RBC Distribution 17.3 % High 10.8-14.9 [facility] Comment on above: Performed By: #### I PB, CHM7, MGO #### [facility] (DEFAULT) [address] [place] [address] WBC (Bld) [#/Vol] 10.90 10*3/uL Normal 3.99-11.19 [facility] Comment on above: Performed By: #### I PB, CHM7, MGO #### [facility] (DEFAULT) [address] [place] [address] Erythrocyte distribution width (RBC) [Ratio] 17.3 % High 10.8 - 14.9 % [facility] Hematocrit (Bld) [Volume fraction] 26.3 % Low 34.9 - 44.3 % [facility] Hemoglobin (Bld) [Mass/Vol] 7.7 g/dL Low 11.4 - 15.2 g/dL [facility] Interpretation and review of laboratory results Abnormal [facility] MCH (RBC) [Entitic mass] 26.9 pg 25.9 - 33.9 pg [facility] MCHC (RBC) [Mass/Vol] 29.3 g/dL Low 31.4 - 35.9 g/dL [facility] MCV (RBC) [Entitic vol] 92.0 fL 79.6 - 97.7 fL [facility] Platelet mean volume (Bld) [Entitic vol] 9.6 fL 8.5 - 12.2 fL [facility] Platelets (Bld) [#/Vol] 399 10*3/uL High 150 - 393 K/uL [facility] RBC (Bld) [#/Vol] 2.86 10*6/uL Low [facility] WBC (Bld) [#/Vol] 10.90 10*3/uL 3.99 - 11 .19 K/uL [facility] CHEM 7 (LYTES,BUN,CREA,GLUC) on 01-23-2022 Anion gap [Moles/Vol] 12 mmol/L Normal 7-17 [facility] Comment on above: Performed By: #### I PB, CHM7, MGO #### [facility] (DEFAULT) [address] [place] [address] 36076 Chloride [Moles/Vol] 105 mmol/L Normal 98-108 [facility] Comment on above: Performed By: #### I PB, CHM7, MGO #### [facility] (DEFAULT) [address] [place] [address] CO2 [Moles/Vol] 30 mmol/L Normal 21-31 [facility] Comment on above: Performed By: #### I PB, CHM7, MGO #### [facility] (DEFAULT) [address] [place] [address]262 Creatinine [Mass/Vol] 0.54 mg/dL Normal 0.50-1.20 [facility] Comment on above: Performed By: #### I PB, CHM7, MGO #### [facility] (DEFAULT) [address] [place] [address] 68007 eGFR, CKD-EPI, Female >90 Normal >=60 [facility] Comment on above: Result Comment: Repo rted eGFR is based on the CKD-EPI 2020 equation using creatinine, age, and sex. Performed By: #### I PB, CHM7, MGO #### [facility] (DEFAULT) [address] [place] [address] 27451 Glucose [Mass/Vol] 92 mg/dL Normal 70-99 [facility] Comment on above: Performed By: #### I PB, CHM7, MGO #### [facility] (DEFAULT) [address] [place] [address]505 Osmolality [Osmolality] 296 mosm/kg Normal 278-305 [facility] Comment on above: Performed By: #### I PB, CHM7, MGO #### [facility] (DEFAULT) [address] [place] [address] 26328 Potassium [Moles/Vol] 3.8 mmol/L Normal 3.5-5.0 [facility] Comment on above: Performed By: #### I ANTELMO MONTESINOS, MGO #### [facility] (DEFAULT) [address] [place] [address] Sodium [Moles/Vol] 143 mmol/L Normal 135-145 [facility] Comment on above: Performed By: #### ANTELMO SHEPARD, MGO #### [facility] (DEFAULT) [address] [place] [address] Urea nitrogen [Mass/Vol] 8 mg/dL Normal 7-25 [facility] Comment on above: Performed By: #### ANTELMO SHEPARD, MGO #### [facility] (DEFAULT) [address] [place] [address] Urea nitrogen/Creatinine [Mass ratio] 15 mg/mg Normal [facility] Comment on above: Performed By: #### ANTELMO SHEPARD, MGO #### [facility] (DEFAULT) [address] [place] [address] Anion gap [Moles/Vol] 12 mmol/L 7 - 17 mmol/L [facility] Chloride [Moles/Vol] 105 mmol/L 98 - 10 8 mmol/L [facility] CO2 [Moles/Vol] 30 mmol/L 21 - 31 mmol/L [facility] Creatinine [Mass/Vol] 0.54 mg/dL 0.50 - 1.20 mg/dL [facility] GFR/1.73 sq M.predicted CKD-EPI (S/P/Bld) [Vol rate/Area] >90 >=60 mL/min/1.73m 2 [facility] Glucose [Mass/Vol] 92 mg/dL 70 - 99 mg/dL [facility] Osmolality Calc [Osmolality] 296 [facility] Potassium [Moles/Vol] 3.8 mmol/L 3.5 - 5.0 mmol/L [facility] Sodium [Moles/Vol] 143 mmol/L 135 - 145 mmol/L [facility] Urea nitrogen [Mass/Vol] 8 mg/dL 7 - 25 mg/dL [facility] Urea nitrogen/Creatinine [Mass ratio] 15 mg/mg [facility] ECGOrdered By: Colten mejia on 01-23-2022 [facility] Work Phone: HEMOGLOBIN & HEMATOCRITon Hematocrit (Bld) [Volume fraction] 26.0 % Low 34.9-44.3 [facility] Comment on above: Performed By: #### I PB, CHM7, MGO #### [facility] (DEFAULT) [address] [place] [address] 69771 Hemoglobin (Bld) [Mass/Vol] 7.8 g/dL Low 11.4-15.2 [facility] Comment on above: Performed By: #### I PB, CHM7, MGO #### [facility] (DEFAULT) [address] [place] [address] 86460 Hematocrit (Bld) [Volume fraction] 26.0 % Low 34.9 - 44.3 % [facility] Hemoglobin (Bld) [Mass/Vol] 7.8 g/dL Low 11.4 - 15.2 g/dL [facility] Interpretation and review of laboratory results Abnormal [facility] IONIZED CALCIUM, WHOLE BLOOD on 01-23-2022 ICA 4.75 mg/dL Normal 4.60-5.30 [facility] Comment on above: Performed By: #### T YPEC #### [facility] (DEFAULT) [address] [place] [address]161 Calcium.ionized (Bld) [Moles/Vol] 4.75 mg/dL 4.60 - 5.30 mg/dL [facility] Interpretation and review of laboratory results Normal [facility] MAGNESIUMon 01-23-2022 Magnesium [Mass/Vol] 1.8 mg/dL Normal 1.6-2.6 [facility] Comment on above: Performed By: #### I PBHARJEETMDany, MGO #### [facility] (DEFAULT) [address] [place] [address] 83333 Magnesium [Mass/Vol] 1.8 mg/dL 1.6 - 2 .6 mg/dL [facility] No Panel Informationon 01-23 Interpretation and review of laboratory results Normal [facility] PHOSPHATE, INORGANICon 01-23 Phosphorous 2.9 mg/dL Normal 2.2-4.6 [facility] Comment on above: Performed By: #### I PBHARJEETM7, MGO #### [facility] (DEFAULT) [address] [place] [address] 70836 Phosphate [Mass/Vol] 2.9 mg/dL 2.2 - 4 .6 mg/dL [facility] CBC,PLATELETSon 01-22-2022 Hematocrit (Bld) [Volume fraction] 25.7 % Low 34.9-44.3 [facility] Comment on above: Performed By: #### L [id number] #### [facility] (DEFAULT) [address] [place] [address] 79956 Hemoglobin (Bld) [Mass/Vol] 7.6 g/dL Low 11.4-15.2 [facility] Comment on above: Performed By: #### L [id number] #### [facility] (DEFAULT) [address] [place] [address] 77880 MCV (RBC) [Entitic vol] 91.8 fL Normal 79.6-97.7 [facility] Comment on above: Performed By: #### L [id number] #### [facility] (DEFAULT) [address] [place] [address] 74359 Mean Cell Hgb 27.1 pg Normal 25.9-33.9 [facility] Comment on above: Performed By: #### L ABSARS1 #### [facility] (DEFAULT) [address] [place] [address] 83663 Mean Cell Hgb Conc 29.6 g/dL Low 31.4-35.9 [facility] Comment on above: Performed By: #### L [id number] #### [facility] (DEFAULT) [address] [place] [address] 14466 Platelet mean volume (Bld) [Entitic vol] 9.4 fL Normal 8.5-12.2 [facility] Comment on above: Performed By: #### L [id number] #### [facility] (DEFAULT) [address] [place] [address] 39908 Platelets (Bld) [#/Vol] 376 10*3/uL Normal 150-393 [facility] Comment on above: Performed By: #### L [id number] #### [facility] (DEFAULT) [address] [place] [address] 49370 RBC (Bld) [#/Vol] 2.80 10*6/uL Low 3.91-5.04 [facility] Comment on above: Performed By: #### L [id number] #### [facility] (DEFAULT) [address] [place] [address] 77031 RBC Distribution 17.3 % High 10.8-14.9 [facility] Comment on above: Performed By: #### L [id number] #### [facility] (DEFAULT) [address] [place] [address] 08814 WBC (Bld) [#/Vol] 13.30 10*3/uL High 3.99-11.19 [facility] Comment on above: Performed By: #### L [id number] #### [facility] (DEFAULT) [address] [place] [address] 54445 Erythrocyte distribution width (RBC) [Ratio] 17.3 % High 10.8 - 14.9 % [facility] Hematocrit (Bld) [Volume fraction] 25.7 % Low 34.9 - 44.3 % [facility] Hemoglobin (Bld) [Mass/Vol] 7.6 g/dL Low 11.4 - 15.2 g/dL [facility] Interpretation and review of laboratory results Abnormal [facility] MCH (RBC) [Entitic mass] 27.1 pg 25.9 - 33.9 pg [facility] MCHC (RBC) [Mass/Vol] 29.6 g/dL Low 31.4 - 35.9 g/dL [facility] MCV (RBC) [Entitic vol] 91.8 fL 79.6 - 97.7 fL [facility] Platelet mean volume (Bld) [Entitic vol] 9.4 fL 8.5 - 12.2 fL [facility] Platelets (Bld) [#/Vol] 376 10*3/uL 150 - 393 K/uL [facility] RBC (Bld) [#/Vol] 2.80 10*6/uL Low [facility] WBC (Bld) [#/Vol] 13.30 10*3/uL High 3.99 - 11 .19 K/uL [facility] CHEM 7 (LYTES,BUN,CREA,GLUC) on 01-22-2022 Anion gap [Moles/Vol] 9 mmol/L Normal 7-17 [facility] Comment on above: Performed By: #### X M #### [facility] (DEFAULT) [address] [place] [address] 91665 Chloride [Moles/Vol] 107 mmol/L Normal 98-108 [facility] Comment on above: Performed By: #### X M #### [facility] (DEFAULT) [address] [place] [address] 51497 CO2 [Moles/Vol] 29 mmol/L Normal 21-31 [facility] Comment on above: Performed By: #### X M #### [facility] (DEFAULT) [address] [place] [address] 48431 Creatinine [Mass/Vol] 0.61 mg/dL Normal 0.50-1.20 [facility] Comment on above: Performed By: #### X M #### [facility] (DEFAULT) [address] [place] [address] 94583 eGFR, CKD-EPI, Female >90 Normal >=60 [facility] Comment on above: Result Comment: Repo rted eGFR is based on the CKD-EPI 2020 equation using creatinine, age, and sex. Performed By: #### X M #### [facility] (DEFAULT) [address] [place] [address] 96128 Glucose [Mass/Vol] 89 mg/dL Normal 70-99 [facility] Comment on above: Performed By: #### X M #### [facility] (DEFAULT) [address] [place] [address] 21411 Osmolality [Osmolality] 294 mosm/kg Normal 278-305 [facility] Comment on above: Performed By: #### X M #### [facility] (DEFAULT) [address] [place] [address] 95674 Potassium [Moles/Vol] 4.0 mmol/L Normal 3.5-5.0 [facility] Comment on above: Performed By: #### X M #### [facility] (DEFAULT) [address] [place] [address] 43347 Sodium [Moles/Vol] 141 mmol/L Normal 135-145 [facility] Comment on above: Performed By: #### X M #### [facility] (DEFAULT) [address] [place] [address] 29187 Urea nitrogen [Mass/Vol] 12 mg/dL Normal 7-25 [facility] Comment on above: Performed By: #### X M #### [facility] (DEFAULT) [address] [place] [address] 35813 Urea nitrogen/Creatinine [Mass ratio] 20 mg/mg Normal [facility] Comment on above: Performed By: #### X M #### [facility] (DEFAULT) [address] [place] [address] 10225 Anion gap [Moles/Vol] 9 mmol/L 7 - 17 mmol/L [facility] Chloride [Moles/Vol] 107 mmol/L 98 - 10 8 mmol/L [facility] CO2 [Moles/Vol] 29 mmol/L 21 - 31 mmol/L [facility] Creatinine [Mass/Vol] 0.61 mg/dL 0.50 - 1.20 mg/dL [facility] GFR/1.73 sq M.predicted CKD-EPI (S/P/Bld) [Vol rate/Area] >90 >=60 mL/min/1.73m 2 [facility] Glucose [Mass/Vol] 89 mg/dL 70 - 99 mg/dL [facility] Osmolality Calc [Osmolality] 294 [facility] Potassium [Moles/Vol] 4.0 mmol/L 3.5 - 5.0 mmol/L [facility] Sodium [Moles/Vol] 141 mmol/L 135 - 145 mmol/L [facility] Urea nitrogen [Mass/Vol] 12 mg/dL 7 - 25 mg/dL [facility] Urea nitrogen/Creatinine [Mass ratio] 20 mg/mg [facility] HEMOGLOBIN & HEMATOCRITon Hematocrit (Bld) [Volume fraction] 29.3 % Low 34.9-44.3 [facility] Comment on above: Performed By: #### X M #### [facility] (DEFAULT) [address] [address] Hemoglobin (Bld) [Mass/Vol] 8.6 g/dL Low 11.4-15.2 [facility] Comment on above: Performed By: #### X M #### [facility] (DEFAULT) [address] [address] Hematocrit (Bld) [Volume fraction] 29.3 % Low 34.9 - 44.3 % [facility] Hemoglobin (Bld) [Mass/Vol] 8.6 g/dL Low 11.4 - 15.2 g/dL [facility] Interpretation and review of laboratory results Abnormal [facility] IONIZED CALCIUM, WHOLE BLOOD on 01-22-2022 Calcium.ionized (Bld) [Moles/Vol] 4.15 mg/dL Low 4.60 - 5.30 mg/dL [facility] Interpretation and review of laboratory results Abnormal [facility] ICA 4.15 mg/dL Low 4.60-5.30 [facility] Comment on above: Performed By: #### X M #### [facility] (DEFAULT) [address] [place] [address] 94696 MAGNESIUMon 01-22-2022 Magnesium [Mass/Vol] 1.9 mg/dL Normal 1.6-2.6 [facility] Comment on above: Performed By: #### X M #### [facility] (DEFAULT) [address] [place] [address] 02532 Magnesium [Mass/Vol] 1.9 mg/dL 1.6 - 2 .6 mg/dL [facility] No Panel Informationon 01-22 Interpretation and review of laboratory results Normal [facility] PHOSPHATE, INORGANICon 01-22 Phosphorous 4.2 mg/dL Normal 2.2-4.6 [facility] Comment on above: Performed By: #### X M #### [facility] (DEFAULT) [address] [place] [address] 32375 Phosphate [Mass/Vol] 4.2 mg/dL 2.2 - 4 .6 mg/dL [facility] CARDIAC RHYTHM (SCANNED)on 0 01-21-2022 [facility] CBC,PLATELETSon 01-21-2022 Hematocrit (Bld) [Volume fraction] 29.1 % Low 34.9-44.3 [facility] Comment on above: Performed By: #### H [facility] ####[facility] (DEFAULT)[address] [place] [address] 77499 Hemoglobin (Bld) [Mass/Vol] 8.6 g/dL Low 11.4-15.2 [facility] Comment on above: Performed By: #### H EMOGC ####[facility] (DEFAULT)[address] [place] [address] MCV (RBC) [Entitic vol] 89.3 fL Normal 79.6-97.7 [facility] Comment on above: Performed By: #### H EMOGC ####[facility] (DEFAULT)[address] [place] [address] Mean Cell Hgb 26.4 pg Normal 25.9-33.9 [facility] Comment on above: Performed By: #### H EMOGC ####[facility] (DEFAULT)[address] [facility] [place] [address] Mean Cell Hgb Conc 29.6 g/dL Low 31.4-35.9 [facility] Comment on above: Performed By: #### H EMOGC ####[facility] (DEFAULT)[address] [facility] [place] [address] Platelet mean volume (Bld) [Entitic vol] 9.5 fL Normal 8.5-12.2 [facility] Comment on above: Performed By: #### H EMOGC ####[facility] (DEFAULT)[address] [place] [address] Platelets (Bld) [#/Vol] 365 10*3/uL Normal 150-393 [facility] Comment on above: Performed By: #### H EMOGC ####[facility] (DEFAULT)[address] [place] [address] RBC (Bld) [#/Vol] 3.26 10*6/uL Low 3.91-5.04 [facility] Comment on above: Performed By: #### H EMOGC ####[facility] (DEFAULT)[address] [place] [address] RBC Distribution 17.1 % High 10.8-14.9 [facility] Comment on above: Performed By: #### H EMOGC ####[facility] [place] [address] WBC (Bld) [#/Vol] 13.24 10*3/uL High 3.99-11.19 [facility] Comment on above: Performed By: #### H [facility] ####[facility] (DEFAULT)[address] [place] [address] Erythrocyte distribution width (RBC) [Ratio] 17.1 % High 10.8 - 14.9 % [facility] Hematocrit (Bld) [Volume fraction] 29.1 % Low 34.9 - 44.3 % [facility] Hemoglobin (Bld) [Mass/Vol] 8.6 g/dL Low 11.4 - 15.2 g/dL [facility] Interpretation and review of laboratory results Abnormal [facility] MCH (RBC) [Entitic mass] 26.4 pg 25.9 - 33.9 pg [facility] MCHC (RBC) [Mass/Vol] 29.6 g/dL Low 31.4 - 35.9 g/dL [facility] MCV (RBC) [Entitic vol] 89.3 fL 79.6 - 97.7 fL [facility] Platelet mean volume (Bld) [Entitic vol] 9.5 fL 8.5 - 12.2 fL [facility] Platelets (Bld) [#/Vol] 365 10*3/uL 150 - 393 K/uL [facility] RBC (Bld) [#/Vol] 3.26 10*6/uL Low [facility] WBC (Bld) [#/Vol] 13.24 10*3/uL High 3.99 - 11 .19 K/uL [facility] CHEM 7 (LYTES,BUN,CREA,GLUC) on 01-21-2022 Anion gap [Moles/Vol] 14 mmol/L Normal 7-17 [facility] Comment on above: Performed By: #### X M #### [facility] (DEFAULT) [address] [place] [address] 50232 Chloride [Moles/Vol] 101 mmol/L Normal 98-108 [facility] Comment on above: Performed By: #### X M #### [facility] (DEFAULT) [address] [place] [address] 41945 CO2 [Moles/Vol] 33 mmol/L High 21-31 [facility] Comment on above: Performed By: #### X M #### [facility] (DEFAULT) [address] [place] [address] 43636 Creatinine [Mass/Vol] 0.53 mg/dL Normal 0.50-1.20 [facility] Comment on above: Performed By: #### X M #### [facility] (DEFAULT) [address] [place] [address] 17214 eGFR, CKD-EPI, Female >90 Normal >=60 [facility] Comment on above: Result Comment: Repo rted eGFR is based on the CKD-EPI 2020 equation using creatinine, age, and sex. Performed By: #### X M #### [facility] (DEFAULT) [address] [place] [address] 83209 Glucose [Mass/Vol] 92 mg/dL Normal 70-99 [facility] Comment on above: Performed By: #### X M #### [facility] (DEFAULT) [address] [place] [address] 51783 Osmolality [Osmolality] 301 mosm/kg Normal 278-305 [facility] Comment on above: Performed By: #### X M #### [facility] (DEFAULT) [address] [place] [address] 06807 Potassium [Moles/Vol] 5.0 mmol/L Normal 3.5-5.0 [facility] Comment on above: Performed By: #### X M #### [facility] (DEFAULT) [address] [place] [address] 04912 Sodium [Moles/Vol] 143 mmol/L Normal 135-145 [facility] Comment on above: Performed By: #### X M #### [facility] (DEFAULT) [address] [place] [address] Urea nitrogen [Mass/Vol] 15 mg/dL Normal 7-25 [facility] Comment on above: Performed By: #### X M #### [facility] (DEFAULT) [address] [place] [address] Urea nitrogen/Creatinine [Mass ratio] 28 mg/mg Normal [facility] Comment on above: Performed By: #### X M #### [facility] (DEFAULT) [address] [place] [address] Anion gap [Moles/Vol] 14 mmol/L 7 - 17 mmol/L [facility] Chloride [Moles/Vol] 101 mmol/L 98 - 10 8 mmol/L [facility] CO2 [Moles/Vol] 33 mmol/L High 21 - 31 mmol/L [facility] Creatinine [Mass/Vol] 0.53 mg/dL 0.50 - 1.20 mg/dL [facility] GFR/1.73 sq M.predicted CKD-EPI (S/P/Bld) [Vol rate/Area] >90 >=60 mL/min/1.73m 2 [facility] Glucose [Mass/Vol] 92 mg/dL 70 - 99 mg/dL [facility] Interpretation and review of laboratory results Abnormal [facility] Osmolality Calc [Osmolality] 301 [facility] Potassium [Moles/Vol] 5.0 mmol/L 3.5 - 5.0 mmol/L [facility] Sodium [Moles/Vol] 143 mmol/L 135 - 145 mmol/L [facility] Urea nitrogen [Mass/Vol] 15 mg/dL 7 - 25 mg/dL [facility] Urea nitrogen/Creatinine [Mass ratio] 28 mg/mg [facility] CT HEAD WITHOUT CONTRASTon 0 01-21-2022 CT HEAD WITHOUT CONTRAST EXAM: CT HEAD WITHOUT CONTRAST, 01/21/2022 12:16 PM COMPARISON: CT head noncontrast January 20, 2022 CLINICAL INDICATIONS: 66 years Female s/p cranioplasty, [post op eval; RELEVANT CLINICAL HISTORY: Parenchymal hemorrhage status post cranioplasty TECHNIQUE: A series of transaxial computerized tomographic images are obtained from base of skull to vertex without intravenous contrast. Axial whole-head and thin section posterior fossa slices are provided. Reformats: Sagittal and coronal. FINDINGS: Postsurgical changes consistent with right-sided cranioplasty with replacement of the previous craniotomy bone flap. Subdural hematoma along the right cerebral convexity is grossly stable, measuring approximately 6 mm. There is postoperative air beneath the craniotomy site. There is mass effect and right to left midline shift measuring approximately 4.7 mm, largely unchanged from prior imaging. Trace right subarachnoid hemorrhage is unchanged. There are unchanged areas of hypoattenuation in the right occipital lobe as well as chronic infarcts in the left parietal lobe, right parietal lobe in the postcentral gyrus. There is a hypodensity in the right cerebellar hemisphere consistent with encephalomalacia. Ventricles are normal in size and configuration for patient's stated age. Calvarium and skull base appear intact. Mild opacifications in bilateral ethmoid sinuses, in the sphenoid sinus (with an air-fluid level), and in the right mastoid air cells. Visualized orbits are unremarkable. Bilateral cataract removal. Atherosclerotic calcifications of the internal carotid arteries at the skull base. IMPRESSION: Anticipated postoperative changes following right sided cranioplasty for replacement of the craniotomy bone flap. Subdural fluid collection is stable with unchanged midline shift. Trace right lateral temporal lobe subarachnoid hemorrhage is stable. 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 I personally viewed and interpreted these images and I have reviewed and approved this report. Normal [facility] CT Head WO contraston 2021 RADIOLOGY RADIOLOGY [facility] Rad[facility]narrative[facility] WO contrastOrdered B y: Radha Rosa on 01-21-2022 [facility] Work Phone: IONIZED CALCIUM, WHOLE BLOOD on 01-21-2022 ICA 4.86 mg/dL Normal 4.60-5.30 [facility] Comment on above: Performed By: #### U [id number] #### [facility] (DEFAULT) [address] [place] [address] [id number] Calcium.ionized (Bld) [Moles/Vol] 4.86 mg/dL 4.60 - 5.30 mg/dL [facility] Interpretation and review of laboratory results Normal [facility] MAGNESIUMon 01-21-2022 Magnesium [Mass/Vol] 2.0 mg/dL Normal 1.6-2.6 [facility] Comment on above: Performed By: #### X M #### [facility] (DEFAULT) [address] [place] [address] 02198 Magnesium [Mass/Vol] 2.0 mg/dL 1.6 - 2 .6 mg/dL [facility] No Panel Informationon 01-21 Interpretation and review of laboratory results Normal [facility] PHOSPHATE, INORGANICon 01-21 Phosphorous 4.4 mg/dL Normal 2.2-4.6 [facility] Comment on above: Performed By: #### X M #### [facility] (DEFAULT) [address] [place] [address] 53374 Phosphate [Mass/Vol] 4.4 mg/dL 2.2 - 4 .6 mg/dL [facility] PT,INR,PTTon 01-21-2022 aPTT Coag (Bld) [Time] 27.4 s Normal 24.0-34.3 [facility] Comment on above: Performed By: #### G AS5L #### [facility] (DEFAULT) [address] [place] [address] [id number] INR Coag (PPP) [Relative time] 1.0 {INR} Normal 0.9-1.1 [facility] Comment on above: Performed By: #### G AS5L #### [facility] (DEFAULT) [address] [place] [address] 26638 PT Coag (PPP) [Time] 13.4 s Normal 11.9-14.2 [facility] Comment on above: Performed By: #### G AS5L #### [facility] (DEFAULT) [address] [address] aPTT Coag (PPP) [Time] 27.4 s [facility] INR Coag (Bld) [Relative time] 1.0 {INR} [facility] Interpretation and review of laboratory results Normal [facility] PT Coag (PPP) [Time] 13.4 s [facility] Portable XR Chest Viewson RADIOLOGY RADIOLOGY [facility] SCREEN: MRSA/MSSAOrdered By: Catalino Mensah on 01-21-2022 Interpretation and review of laboratory results Normal [facility] Methicillin Resistant S. Aureus By Pcr Negative Negative [facility] Staphylococcus Aureus By Pcr Negative Negative [facility] SCREEN: MRSA/MSSAon 01-22-20 Methicillin Resistant S. Aureus By Pcr Negative Normal Negative [facility] Comment on above: Order Comment: Colle ct with an ESWAB - Anterior Nares for MRSA + MSSAThis test was performed using a real time PCR assay. Results should be interpreted in conjunction with other clinical and laboratory findings. A positive result does not necessarily indicate the presence of viable organism. This test should not be used as a test of cure. For E-swab specimens, this test was developed and its performance characteristics determined by the Clinical Microbiology Laboratory at [facility]. It has not been cleared or approved by the FDA.The laboratory is regulated under CLIA as qualified to perform high-complexity testing. This test is used for clinical purposes. It should not be regarded as investigational or for research. Performed By: #### X M #### [facility] (DEFAULT) [address] [address] Staphylococcus Aureus By Pcr Negative Normal Negative [facility] Comment on above: Order Comment: Colle ct with an ESWAB - Anterior Nares for MRSA + MSSAThis test was performed using a real time PCR assay. Results should be interpreted in conjunction with other clinical and laboratory findings. A positive result does not necessarily indicate the presence of viable organism. This test should not be used as a test of cure. For E-swab specimens, this test was developed and its performance characteristics determined by the Clinical Microbiology [facility] at [facility]. It has not been cleared or approved by the FDA.The laboratory is regulated under CLIA as qualified to perform high-complexity testing. This test is used for clinical purposes. It should not be regarded as investigational or for research. Performed By: #### X M #### [facility] (DEFAULT) [address] [place] [id number] TYPE AND SCREENon 01-21-2022 ABO/RH(D) TYPE Positive Normal [facility] Comment on above: Performed By: #### X M ####[facility] (DEFAULT)[address] [place] [address] ABO/RH(D) TYPE Positive [facility] XR CHEST PORTABLEon 01-22-20 XR CHEST PORTABLE EXAM: XR CHEST PORTABLE, 01/20/2022 20:07 PM COMPARISON: Chest radiograph dated January 09, 2022 CLINICAL INDICATIONS: pre op RELEVANT CLINICAL HISTORY: FINDINGS: Mild bibasilar atelectasis. No focal airspace disease or overt pulmonary edema. No pleural effusion or pneumothorax. Heart size and cardiomediastinal silhouette are within normal limits. Visualized osseous structures are within normal limits without displaced fracture. A few old healed left-sided rib fractures are noted incidentally. IMPRESSION: Bibasilar atelectasis. No acute pulmonary disease. I personally viewed and interpreted these images and I have reviewed and approved this report. Normal [facility] CBC,PLATELETSon 01-20-2022 Hematocrit (Bld) [Volume fraction] 30.9 % Low 34.9-44.3 [facility] Comment on above: Performed By: #### X M #### [facility] (DEFAULT) [address] [place] [address] 53696 Hemoglobin (Bld) [Mass/Vol] 9.2 g/dL Low 11.4-15.2 [facility] Comment on above: Performed By: #### X M #### [facility] (DEFAULT) [address] [place] [address] 90841 MCV (RBC) [Entitic vol] 90.4 fL Normal 79.6-97.7 [facility] Comment on above: Performed By: #### X M #### [facility] (DEFAULT) [address] [place] [address] 36806 Mean Cell Hgb 26.9 pg Normal 25.9-33.9 [facility] Comment on above: Performed By: #### X M #### [facility] (DEFAULT) [address] [place] [address] 15764 Mean Cell Hgb Conc 29.8 g/dL Low 31.4-35.9 [facility] Comment on above: Performed By: #### X M #### [facility] (DEFAULT) [address] [place] [address] 59049 Platelet mean volume (Bld) [Entitic vol] 9.7 fL Normal 8.5-12.2 [facility] Comment on above: Performed By: #### X M #### [facility] (DEFAULT) [address] [place] [address] 04973 Platelets (Bld) [#/Vol] 369 10*3/uL Normal 150-393 [facility] Comment on above: Performed By: #### X M #### [facility] (DEFAULT) [address] [place] [address] 35255 RBC (Bld) [#/Vol] 3.42 10*6/uL Low 3.91-5.04 [facility] Comment on above: Performed By: #### X M #### [facility] (DEFAULT) [address] [place] [address] 17970 RBC Distribution 17.4 % High 10.8-14.9 [facility] Comment on above: Performed By: #### X M #### [facility] (DEFAULT) [address] [place] [address] 56663 WBC (Bld) [#/Vol] 14.33 10*3/uL High 3.99-11.19 [facility] Comment on above: Performed By: #### X M #### [facility] (DEFAULT) [address] [place] [address] 00878 Erythrocyte distribution width (RBC) [Ratio] 17.4 % High 10.8 - 14.9 % [facility] Hematocrit (Bld) [Volume fraction] 30.9 % Low 34.9 - 44.3 % [facility] Hemoglobin (Bld) [Mass/Vol] 9.2 g/dL Low 11.4 - 15.2 g/dL [facility] Interpretation and review of laboratory results Abnormal [facility] MCH (RBC) [Entitic mass] 26.9 pg 25.9 - 33.9 pg [facility] MCHC (RBC) [Mass/Vol] 29.8 g/dL Low 31.4 - 35.9 g/dL [facility] MCV (RBC) [Entitic vol] 90.4 fL 79.6 - 97.7 fL [facility] Platelet mean volume (Bld) [Entitic vol] 9.7 fL 8.5 - 12.2 fL [facility] Platelets (Bld) [#/Vol] 369 10*3/uL 150 - 393 K/uL [facility] RBC (Bld) [#/Vol] 3.42 10*6/uL Low [facility] WBC (Bld) [#/Vol] 14.33 10*3/uL High 3.99 - 11 .19 K/uL [facility] CHEM 7 (LYTES,BUN,CREA,GLUC) on 01-20-2022 Anion gap [Moles/Vol] 11 mmol/L Normal 7-17 [facility] Comment on above: Performed By: #### I PB, CHM7, MGO #### [facility] (DEFAULT) [address] [place] [address] 36618 Chloride [Moles/Vol] 101 mmol/L Normal 98-108 [facility] Comment on above: Performed By: #### I PB, CHM7, MGO #### [facility] (DEFAULT) [address] [place] [address] 43458 CO2 [Moles/Vol] 34 mmol/L High 21-31 [facility] Comment on above: Performed By: #### I PB, CHM7, MGO #### [facility] (DEFAULT) [address] [place] [address] 26447 Creatinine [Mass/Vol] 0.57 mg/dL Normal 0.50-1.20 [facility] Comment on above: Performed By: #### I PB, CHM7, MGO #### [facility] (DEFAULT) [address] [place] [address] 20446 eGFR, CKD-EPI, Female >90 Normal >=60 [facility] Comment on above: Result Comment: Repo rted eGFR is based on the CKD-EPI 2020 equation using creatinine, age, and sex. Performed By: #### I PB, CHM7, MGO #### [facility] (DEFAULT) [address] [place] [address] 85113 Glucose [Mass/Vol] 107 mg/dL High 70-99 [facility] Comment on above: Performed By: #### I PB, CHM7, MGO #### [facility] (DEFAULT) [address] [place] [address] 18521 Osmolality [Osmolality] 300 mosm/kg Normal 278-305 [facility] Comment on above: Performed By: #### I PB, CHM7, MGO #### [facility] (DEFAULT) [address] [place] [address] 95749 Potassium [Moles/Vol] 3.9 mmol/L Normal 3.5-5.0 [facility] Comment on above: Performed By: #### I ANTELMO MONTESINOS, MGO #### [facility] (DEFAULT) [address] [place] [address] Sodium [Moles/Vol] 142 mmol/L Normal 135-145 [facility] Comment on above: Performed By: #### I HARJEET MONTESINOSMDany, MGO #### [facility] (DEFAULT) [address] [place] [address] Urea nitrogen [Mass/Vol] 22 mg/dL Normal 7-25 [facility] Comment on above: Performed By: #### I HARJEET MONTESINOSM7, MGO #### [facility] (DEFAULT) [address] [place] [address] 92476 Urea nitrogen/Creatinine [Mass ratio] 39 mg/mg Normal [facility] Comment on above: Performed By: #### ANTELMO SHEPARD, MGO #### [facility] (DEFAULT) [address] [place] [address] 99198 Anion gap [Moles/Vol] 11 mmol/L 7 - 17 mmol/L [facility] Chloride [Moles/Vol] 101 mmol/L 98 - 10 8 mmol/L [facility] CO2 [Moles/Vol] 34 mmol/L High 21 - 31 mmol/L [facility] Creatinine [Mass/Vol] 0.57 mg/dL 0.50 - 1.20 mg/dL [facility] GFR/1.73 sq M.predicted CKD-EPI (S/P/Bld) [Vol rate/Area] >90 >=60 mL/min/1.73m 2 [facility] Glucose [Mass/Vol] 107 mg/dL High 70 - 99 mg/dL [facility] Interpretation and review of laboratory results Abnormal [facility] Osmolality Calc [Osmolality] 300 [facility] Potassium [Moles/Vol] 3.9 mmol/L 3.5 - 5.0 mmol/L [facility] Sodium [Moles/Vol] 142 mmol/L 135 - 145 mmol/L [facility] Urea nitrogen [Mass/Vol] 22 mg/dL 7 - 25 mg/dL [facility] Urea nitrogen/Creatinine [Mass ratio] 39 mg/mg [facility] CT HEAD WITHOUT CONTRASTon 0 01-20-2022 CT HEAD WITHOUT CONTRAST EXAM: CT HEAD WITHOUT CONTRAST, 01/20/2022 9:58 AM COMPARISON: CT head 01/17/2022. CLINICAL INDICATIONS: 66 years Female Parenchymal hemorrhage, follow-up; TECHNIQUE: A series of transaxial computerized tomographic images are obtained from base of skull to vertex without intravenous contrast. Axial whole-head and thin section posterior fossa slices are provided. Reformats: Sagittal and coronal. FINDINGS: Postoperative changes following right sided craniectomy for evacuation of acute subdural hematoma along the right cerebral convexity. Stable to slightly decreased size of residual extra-axial collection along the right cerebral convexity, most pronounced along the right inferior frontal convexity measuring up to 8 mm in thickness, previously 9 mm. Stable to slightly decreased mass effect and leftward midline shift which now measures 4 mm (series 6 image 42), previously 5 mm. Stable to slightly decreased subfalcine herniation. No progressive mass effect or downward herniation. Trace subarachnoid hemorrhage in the lateral right temporal lobe has slightly decreased compared to the prior study. 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 Relative asymmetric hypodensity in the right cerebral hemisphere in the region of the hemicraniectomy defect is favored to be related to beam hardening artifact.. Ventricles are stable in size and configuration. No hydrocephalus. Calvarium and skull base appear intact. Air-fluid level within the left sphenoid sinus. Prior bilateral cataract surgery. Atherosclerotic calcifications of the internal carotid arteries at the skull base. Partially imaged nasogastric tube. IMPRESSION: Postoperative changes following right-sided craniectomy for right subdural hematoma evacuation. Stable to slightly decreased size of residual extra-axial collection along the right cerebral convexity. Trace subarachnoid hemorrhage in the lateral right temporal lobe has slightly decreased. Stable to slightly decreased mass effect and leftward midline shift. No progressive mass effect or downward herniation. I personally viewed and interpreted these images and I have reviewed and approved this report. Normal [facility] CT Head WO contraston 2021 RADIOLOGY RADIOLOGY [facility] Radiology Study [facility] (narrative) [facility] WO contrastOrdered B y: Leobardo Meraz on 01-20-2022 [facility] Work Phone: IONIZED CALCIUM, WHOLE BLOOD on 01-20-2022 ICA 4.89 mg/dL Normal 4.60-5.30 [facility] Comment on above: Performed By: #### L [id number] #### [facility] (DEFAULT) [address] [place] [address] Calcium.ionized (Bld) [Moles/Vol] 4.89 mg/dL 4.60 - 5.30 mg/dL [facility] Interpretation and review of laboratory results Normal [facility] MAGNESIUMon 01-20-2022 Magnesium [Mass/Vol] 2.1 mg/dL Normal 1.6-2.6 [facility] Comment on above: Performed By: #### I PB, CHM7, MGO #### [facility] (DEFAULT) [address] [place] [address] 37368 Magnesium [Mass/Vol] 2.1 mg/dL 1.6 - 2 .6 mg/dL [facility] No Panel Informationon 01-20 Interpretation and review of laboratory results Normal [facility] PHOSPHATE, INORGANICon 01-20 Phosphorous 3.7 mg/dL Normal 2.2-4.6 [facility] Comment on above: Performed By: #### I PB, CHM7, MGO #### [facility] (DEFAULT) [address] [place] [address] 77830 Phosphate [Mass/Vol] 3.7 mg/dL 2.2 - 4 .6 mg/dL [facility] Portable XR Chest Viewson Radiology Study observation (narrative) [facility] RF videography Hypopharynx a nd Esophagus Views W liquid and paste contrast PO during swallowingon 01-20-2022 RADIOLOGY RADIOLOGY [facility] (narrative) [facility] SPEECH MODIFIED BARIUM SWALL [facility] FLU[facility]O MODIFIED BARIUM SW ALLOW WITH SPEECHon 01-20-2022 XR FLUORO MODIFIED BARIUM SWALLOW WITH SPEECH EXAM: XR FLUORO MODIFIED BARIUM SWALLOW WITH SPEECH, 01/20/2022 14:33 PM COMPARISON: No prior MBS studies available for comparison. CLINICAL INDICATIONS: objective swallowing evaluation TECHNIQUE: Multiple barium consistencies (thin, puree and solid) were administered to evaluate the swallow. Lateral videofluoroscopy was performed in conjunction with Speech Pathology. TOTAL FLUORO TIME: 0.7 min FINDINGS: A nasoenteric tube is present within the nasopharynx and cervical esophagus where it then exits the field of view. Oral Phase: Mild residue was noted in the oral cavity. Oral transit is within normal limits. The oral phase is unremarkable. Multiple dental fillings are present. Pharyngeal Phase: There is one occurrence of trace and transient laryngeal penetration of thin liquids, without aspiration. No laryngeal penetration or aspiration occurred with puree or solid. Mild residue remains along the tongue base and vallecula especially with the puree and solid consistencies. Cervical Phase: The visualized cervical phase is grossly functional. There is a limited evaluation of the cervical phase due to the overlying shoulder structures. The visualized prevertebral soft tissues are unremarkable. IMPRESSION: Functional exam. One episode of trace and transient laryngeal penetration of thin liquids, without aspiration. Refer to the Speech and Language Pathologist's report for diet and therapy recommendations. Procedure performed by GLADYS Hull under the direct supervision of Dr. David Diego. I personally viewed and interpreted these images and I have reviewed and approved this report. Normal [facility] CBC,PLATELETSon 01-19-2022 Hematocrit (Bld) [Volume fraction] 28.9 % Low 34.9-44.3 [facility] Comment on above: Performed By: #### X M #### [facility] (DEFAULT) [address] [place] [address] 40681 Hemoglobin (Bld) [Mass/Vol] 8.8 g/dL Low 11.4-15.2 [facility] Comment on above: Performed By: #### X M #### [facility] (DEFAULT) [address] [place] [address] 05818 MCV (RBC) [Entitic vol] 88.1 fL Normal 79.6-97.7 [facility] Comment on above: Performed By: #### X M #### [facility] (DEFAULT) [address] [place] [address] 79232 Mean Cell Hgb 26.8 pg Normal 25.9-33.9 [facility] Comment on above: Performed By: #### X M #### [facility] (DEFAULT) [address] [place] [address] 36521 Mean Cell Hgb Conc 30.4 g/dL Low 31.4-35.9 [facility] Comment on above: Performed By: #### X M #### [facility] (DEFAULT) [address] [place] [address] 27548 Platelet mean volume (Bld) [Entitic vol] 9.9 fL Normal 8.5-12.2 [facility] Comment on above: Performed By: #### X M #### [facility] (DEFAULT) [address] [place] [address] 13907 Platelets (Bld) [#/Vol] 344 10*3/uL Normal 150-393 [facility] Comment on above: Performed By: #### X M #### [facility] (DEFAULT) [address] [place] [address] 85556 RBC (Bld) [#/Vol] 3.28 10*6/uL Low 3.91-5.04 [facility] Comment on above: Performed By: #### X M #### [facility] (DEFAULT) [address] [place] [address] 35187 RBC Distribution 17.6 % High 10.8-14.9 [facility] Comment on above: Performed By: #### X M #### [facility] (DEFAULT) [address] [place] [address] 41854 WBC (Bld) [#/Vol] 17.29 10*3/uL High 3.99-11.19 [facility] Comment on above: Performed By: #### X M #### [facility] (DEFAULT) [address] [place] [address] 05123 Erythrocyte distribution width (RBC) [Ratio] 17.6 % High 10.8 - 14.9 % [facility] Hematocrit (Bld) [Volume fraction] 28.9 % Low 34.9 - 44.3 % [facility] Hemoglobin (Bld) [Mass/Vol] 8.8 g/dL Low 11.4 - 15.2 g/dL [facility] Interpretation and review of laboratory results Abnormal [facility] MCH (RBC) [Entitic mass] 26.8 pg 25.9 - 33.9 pg [facility] MCHC (RBC) [Mass/Vol] 30.4 g/dL Low 31.4 - 35.9 g/dL [facility] MCV (RBC) [Entitic vol] 88.1 fL 79.6 - 97.7 fL [facility] Platelet mean volume (Bld) [Entitic vol] 9.9 fL 8.5 - 12.2 fL [facility] Platelets (Bld) [#/Vol] 344 10*3/uL 150 - 393 K/uL [facility] RBC (Bld) [#/Vol] 3.28 10*6/uL Low [facility] WBC (Bld) [#/Vol] 17.29 10*3/uL High 3.99 - 11 .19 K/uL [facility] CHEM 7 (LYTES,BUN,CREA,GLUC) on 01-19-2022 Anion gap [Moles/Vol] 11 mmol/L Normal 7-17 [facility] Comment on above: Performed By: #### X M #### [facility] (DEFAULT) [address] [place] [address] 69821 Chloride [Moles/Vol] 102 mmol/L Normal 98-108 [facility] Comment on above: Performed By: #### X M #### [facility] (DEFAULT) [address] [place] [address] 34127 CO2 [Moles/Vol] 32 mmol/L High 21-31 [facility] Comment on above: Performed By: #### X M #### [facility] (DEFAULT) [address] [place] [address] 50984 Creatinine [Mass/Vol] 0.57 mg/dL Normal 0.50-1.20 [facility] Comment on above: Performed By: #### X M #### [facility] (DEFAULT) [address] [place] [address] 78808 eGFR, CKD-EPI, Female >90 Normal >=60 [facility] Comment on above: Result Comment: Repo rted eGFR is based on the CKD-EPI 2020 equation using creatinine, age, and sex. Performed By: #### X M #### [facility] (DEFAULT) [address] [place] [address] 20916 Glucose [Mass/Vol] 118 mg/dL High 70-99 [facility] Comment on above: Performed By: #### X M #### [facility] (DEFAULT) [address] [place] [address] 59888 Osmolality [Osmolality] 300 mosm/kg Normal 278-305 [facility] Comment on above: Performed By: #### X M #### [facility] (DEFAULT) [address] [place] [address] 49096 Potassium [Moles/Vol] 3.9 mmol/L Normal 3.5-5.0 [facility] Comment on above: Performed By: #### X M #### [facility] (DEFAULT) [address] [place] [address] 81447 Sodium [Moles/Vol] 141 mmol/L Normal 135-145 [facility] Comment on above: Performed By: #### X M #### [facility] (DEFAULT) [address] [place] [address] Urea nitrogen [Mass/Vol] 24 mg/dL Normal 7-25 [facility] Comment on above: Performed By: #### X M #### [facility] (DEFAULT) [address] [place] [address] 02380 Urea nitrogen/Creatinine [Mass ratio] 42 mg/mg Normal [facility] Comment on above: Performed By: #### X M #### [facility] (DEFAULT) [address] [place] [address] 90719 Anion gap [Moles/Vol] 11 mmol/L 7 - 17 mmol/L [facility] Chloride [Moles/Vol] 102 mmol/L 98 - 10 8 mmol/L [facility] CO2 [Moles/Vol] 32 mmol/L High 21 - 31 mmol/L [facility] Creatinine [Mass/Vol] 0.57 mg/dL 0.50 - 1.20 mg/dL [facility] GFR/1.73 sq M.predicted CKD-EPI (S/P/Bld) [Vol rate/Area] >90 >=60 mL/min/1.73m 2 [facility] Glucose [Mass/Vol] 118 mg/dL High 70 - 99 mg/dL [facility] Interpretation and review of laboratory results Abnormal [facility] Osmolality Calc [Osmolality] 300 [facility] Potassium [Moles/Vol] 3.9 mmol/L 3.5 - 5.0 mmol/L [facility] Sodium [Moles/Vol] 141 mmol/L 135 - 145 mmol/L [facility] Urea nitrogen [Mass/Vol] 24 mg/dL 7 - 25 mg/dL [facility] Urea nitrogen/Creatinine [Mass ratio] 42 mg/mg [facility] Glucose [Mass/Vol] 121 mg/dL High 70 - 99 mg/dL [facility] Interpretation and review of laboratory results Abnormal [facility] POC Sample Type CAPBL [facility] IONIZED CALCIUM, WHOLE BLOOD on 01-19-2022 ICA 4.75 mg/dL Normal 4.60-5.30 [facility] Comment on above: Performed By: #### L [id number] #### [facility] (DEFAULT) [address] [place] [address] Calcium.ionized (Bld) [Moles/Vol] 4.75 mg/dL 4.60 - 5.30 mg/dL [facility] Interpretation and review of laboratory results Normal [facility] MAGNESIUMon 01-19-2022 Magnesium [Mass/Vol] 2.1 mg/dL Normal 1.6-2.6 [facility] Comment on above: Performed By: #### X M #### [facility] (DEFAULT) [address] [place] [address] 30560 Magnesium [Mass/Vol] 2.1 mg/dL 1.6 - 2 .6 mg/dL [facility] No Panel Informationon 01-19 Interpretation and review of laboratory results Normal [facility] PHOSPHATE, INORGANICon 01-19 Phosphorous 4.4 mg/dL Normal 2.2-4.6 [facility] Comment on above: Performed By: #### X M #### [facility] (DEFAULT) [address] [place] [address] 95706 Phosphate [Mass/Vol] 4.4 mg/dL 2.2 - 4 .6 mg/dL [facility] CBC,PLATELETSon 01-18-2022 Hematocrit (Bld) [Volume fraction] 29.6 % Low 34.9-44.3 [facility] Comment on above: Performed By: #### G AS5L #### [facility] (DEFAULT) [address] [place] [address] 53531 Hemoglobin (Bld) [Mass/Vol] 9.1 g/dL Low 11.4-15.2 [facility] Comment on above: Performed By: #### G AS5L #### U [facility] (DEFAULT) [address] [place] [address] 56223 MCV (RBC) [Entitic vol] 87.3 fL Normal 79.6-97.7 O [facility] Comment on above: Performed By: #### G AS5L #### U [facility] (DEFAULT) [address] [place] [address] 17372 Mean Cell Hgb 26.8 pg Normal 25.9-33.9 [facility] Comment on above: Performed By: #### G AS5L #### Jose Rafael [facility] (DEFAULT) [address] [place] [address] 10784 Mean Cell Hgb Conc 30.7 g/dL Low 31.4-35.9 [facility] Comment on above: Performed By: #### G AS5L #### [facility] (DEFAULT) [address] [place] [address] 37700 Platelet mean volume (Bld) [Entitic vol] 9.7 fL Normal 8.5-12.2 [facility] Comment on above: Performed By: #### G AS5L #### [facility] (DEFAULT) [address] [place] [address] 55481 Platelets (Bld) [#/Vol] 315 10*3/uL Normal 150-393 [facility] Comment on above: Performed By: #### G AS5L #### [facility] (DEFAULT) [address] [place] [address] 14826 RBC (Bld) [#/Vol] 3.39 10*6/uL Low 3.91-5.04 [facility] Comment on above: Performed By: #### G AS5L #### [facility] (DEFAULT) [address] [place] [address] 66606 RBC Distribution 17.7 % High 10.8-14.9 [facility] Comment on above: Performed By: #### G AS5L #### [facility] (DEFAULT) [address] [place] [address] 70482 WBC (Bld) [#/Vol] 13.95 10*3/uL High 3.99-11.19 [facility] Comment on above: Performed By: #### G AS5L #### [facility] (DEFAULT) [address] [place] [address] 79441 Erythrocyte distribution width (RBC) [Ratio] 17.7 % High 10.8 - 14.9 % [facility] Hematocrit (Bld) [Volume fraction] 29.6 % Low 34.9 - 44.3 % [facility] Hemoglobin (Bld) [Mass/Vol] 9.1 g/dL Low 11.4 - 15.2 g/dL [facility] Interpretation and review of laboratory results Abnormal [facility] MCH (RBC) [Entitic mass] 26.8 pg 25.9 - 33.9 pg [facility] MCHC (RBC) [Mass/Vol] 30.7 g/dL Low 31.4 - 35.9 g/dL [facility] MCV (RBC) [Entitic vol] 87.3 fL 79.6 - 97.7 fL [facility] Platelet mean volume (Bld) [Entitic vol] 9.7 fL 8.5 - 12.2 fL [facility] Platelets (Bld) [#/Vol] 315 10*3/uL 150 - 393 K/uL [facility] RBC (Bld) [#/Vol] 3.39 10*6/uL Low [facility] WBC (Bld) [#/Vol] 13.95 10*3/uL High 3.99 - 11 .19 K/uL [facility] CHEM 7 (LYTES,BUN,CREA,GLUC) on 01-18-2022 Anion gap [Moles/Vol] 13 mmol/L Normal - Pri [facility] Comment on above: Performed By: #### X M #### [facility] (DEFAULT) [address] [place] [address] 60652 Chloride [Moles/Vol] 102 mmol/L Normal 98-108 [facility] Comment on above: Performed By: #### X M #### [facility] (DEFAULT) [address] [place] [address] 06988 CO2 [Moles/Vol] 28 mmol/L Normal 21-31 [facility] Comment on above: Performed By: #### X M #### [facility] (DEFAULT) [address] [place] [address] 33106 Creatinine [Mass/Vol] 0.56 mg/dL Normal 0.50-1.20 [facility] Comment on above: Performed By: #### X M #### [facility] (DEFAULT) [address] [place] [address] 04226 eGFR, CKD-EPI, Female >90 Normal >=60 [facility] Comment on above: Result Comment: Repo rted eGFR is based on the CKD-EPI 2020 equation using creatinine, age, and sex. Performed By: #### X M #### [facility] (DEFAULT) [address] [place] [address] 69448 Glucose [Mass/Vol] 112 mg/dL High 70-99 [facility] Comment on above: Performed By: #### X M #### [facility] (DEFAULT) [address] [place] [address] 49350 Osmolality [Osmolality] 296 mosm/kg Normal 278-305 [facility] Comment on above: Performed By: #### X M #### U [facility] (DEFAULT) [address] [place] [address] 38467 Potassium [Moles/Vol] 3.9 mmol/L Normal 3.5-5.0 [facility] Comment on above: Performed By: #### X M #### [facility] (DEFAULT) [address] [place] [address] 04378 Sodium [Moles/Vol] 139 mmol/L Normal 135-145 [facility] Comment on above: Performed By: #### X M #### [facility] (DEFAULT) [address] [place] [address] Urea nitrogen [Mass/Vol] 25 mg/dL Normal 7-25 [facility] Comment on above: Performed By: #### X M #### [facility] (DEFAULT) [address] [place] [address] 01075 Urea nitrogen/Creatinine [Mass ratio] 45 mg/mg Normal [facility] Comment on above: Performed By: #### X M #### [facility] (DEFAULT) [address] [place] [address] 01489 Anion gap [Moles/Vol] 13 mmol/L 7 - 17 mmol/L [facility] Chloride [Moles/Vol] 102 mmol/L 98 - 10 8 mmol/L [facility] CO2 [Moles/Vol] 28 mmol/L 21 - 31 mmol/L [facility] Creatinine [Mass/Vol] 0.56 mg/dL 0.50 - 1.20 mg/dL [facility] GFR/1.73 sq M.predicted CKD-EPI (S/P/Bld) [Vol rate/Area] >90 >=60 mL/min/1.73m 2 [facility] Glucose [Mass/Vol] 112 mg/dL High 70 - 99 mg/dL [facility] Interpretation and review of laboratory results Abnormal [facility] Osmolality Calc [Osmolality] 296 [facility] Potassium [Moles/Vol] 3.9 mmol/L 3.5 - 5.0 mmol/L [facility] Sodium [Moles/Vol] 139 mmol/L 135 - 145 mmol/L [facility] Urea nitrogen [Mass/Vol] 25 mg/dL 7 - 25 mg/dL [facility] Urea nitrogen/Creatinine [Mass ratio] 45 mg/mg [facility] IONIZED CALCIUM, WHOLE BLOOD on 01-18-2022 ICA 4.33 mg/dL Low 4.60-5.30 [facility] Comment on above: Performed By: #### G AS5L #### [facility] (DEFAULT) [address] [place] [address] 40684 IONIZED CALCIUM, WHOLE BLOOD Ordered By: Crys Friedman on 01-18-2022 Calcium.ionized (Bld) [Moles/Vol] 4.33 mg/dL Low 4.60 - 5.30 mg/dL [facility] Interpretation and review of laboratory results Abnormal [facility] MAGNESIUMon 01-18-2022 Magnesium [Mass/Vol] 1.8 mg/dL Normal 1.6-2.6 [facility] Comment on above: Performed By: #### X M #### [facility] (DEFAULT) [address] [place] [address] 51055 Magnesium [Mass/Vol] 1.8 mg/dL 1.6 - 2 .6 mg/dL [facility] No Panel Informationon 01-18 Interpretation and review of laboratory results Normal [facility] PHOSPHATE, INORGANICon 01-18 Phosphorous 3.0 mg/dL Normal 2.2-4.6 [facility] Comment on above: Performed By: #### X M #### [facility] (DEFAULT) [address] [place] [address] 89210 Phosphate [Mass/Vol] 3.0 mg/dL 2.2 - 4 .6 mg/dL [facility] CBC,PLATELETSon 01-17-2022 Hematocrit (Bld) [Volume fraction] 26.7 % Low 34.9-44.3 [facility] Comment on above: Performed By: #### X M #### [facility] (DEFAULT) [address] [place] [address] 65833 Hemoglobin (Bld) [Mass/Vol] 8.5 g/dL Low 11.4-15.2 [facility] Comment on above: Performed By: #### X M #### U [facility] (DEFAULT) [address] [place] [address] 67473 MCV (RBC) [Entitic vol] 84.5 fL Normal 79.6-97.7 O [facility] Comment on above: Performed By: #### X M #### U [facility] (DEFAULT) [address] [place] [address] 54636 Mean Cell Hgb 26.9 pg Normal 25.9-33.9 [facility] Comment on above: Performed By: #### X M #### [facility] (DEFAULT) [address] [place] [address] 00710 Mean Cell Hgb Conc 31.8 g/dL Normal 31.4-35.9 [facility] Comment on above: Performed By: #### X M #### [facility] (DEFAULT) [address] [place] [address] 73655 Platelet mean volume (Bld) [Entitic vol] 10.4 fL Normal 8.5-12.2 [facility] Comment on above: Performed By: #### X M #### [facility] (DEFAULT) [address] [place] [address] 98388 Platelets (Bld) [#/Vol] 277 10*3/uL Normal 150-393 [facility] Comment on above: Performed By: #### X M #### [facility] (DEFAULT) [address] [place] [address] 70984 RBC (Bld) [#/Vol] 3.16 10*6/uL Low 3.91-5.04 [facility] Comment on above: Performed By: #### X M #### [facility] (DEFAULT) [address] [place] [address] 31552 RBC Distribution 17.7 % High 10.8-14.9 [facility] Comment on above: Performed By: #### X M #### [facility] (DEFAULT) [address] [place] [address] 38811 WBC (Bld) [#/Vol] 12.86 10*3/uL High 3.99-11.19 [facility] Comment on above: Performed By: #### X M #### [facility] (DEFAULT) [address] [place] [address] Erythrocyte distribution width (RBC) [Ratio] 17.7 % High 10.8 - 14.9 % [facility] Hematocrit (Bld) [Volume fraction] 26.7 % Low 34.9 - 44.3 % [facility] Hemoglobin (Bld) [Mass/Vol] 8.5 g/dL Low 11.4 - 15.2 g/dL [facility] Interpretation and review of laboratory results Abnormal [facility] MCH (RBC) [Entitic mass] 26.9 pg 25.9 - 33.9 pg [facility] MCHC (RBC) [Mass/Vol] 31.8 g/dL 31.4 - 35.9 g/dL [facility] MCV (RBC) [Entitic vol] 84.5 fL 79.6 - 97.7 fL [facility] Platelet mean volume (Bld) [Entitic vol] 10.4 fL 8.5 - 12.2 fL [facility] Platelets (Bld) [#/Vol] 277 10*3/uL 150 - 393 K/uL [facility] RBC (Bld) [#/Vol] 3.16 10*6/uL Low [facility] WBC (Bld) [#/Vol] 12.86 10*3/uL High 3.99 - 11 .19 K/uL [facility] CHEM 7 (LYTES,BUN,CREA,GLUC) on 01-17-2022 Anion gap [Moles/Vol] 15 mmol/L Normal 7-17 [facility] Comment on above: Performed By: #### X M #### [facility] (DEFAULT) [address] [place] [address] Chloride [Moles/Vol] 102 mmol/L Normal 98-108 [facility] Comment on above: Performed By: #### X M #### [facility] (DEFAULT) [address] [place] [address] 80724 CO2 [Moles/Vol] 30 mmol/L Normal 21-31 [facility] Comment on above: Performed By: #### X M #### [facility] (DEFAULT) [address] [place] [address] 48814 Creatinine [Mass/Vol] 0.52 mg/dL Normal 0.50-1.20 [facility] Comment on above: Performed By: #### X M #### [facility] (DEFAULT) [address] [place] [address] 94289 eGFR, CKD-EPI, Female >90 Normal >=60 [facility] Comment on above: Result Comment: Repo rted eGFR is based on the CKD-EPI 2020 equation using creatinine, age, and sex. Performed By: #### X M #### [facility] (DEFAULT) [address] [place] [address] 35234 Glucose [Mass/Vol] 140 mg/dL High 70-99 [facility] Comment on above: Performed By: #### X M #### [facility] (DEFAULT) [address] [place] [address] 62054 Osmolality [Osmolality] 305 mosm/kg Normal 278-305 [facility] Comment on above: Performed By: #### X M #### [facility] (DEFAULT) [address] [place] [address] 50138 Potassium [Moles/Vol] 4.0 mmol/L Normal 3.5-5.0 [facility] Comment on above: Performed By: #### X M #### [facility] (DEFAULT) [address] [place] [address] 40134 Sodium [Moles/Vol] 143 mmol/L Normal 135-145 [facility] Comment on above: Performed By: #### X M #### [facility] (DEFAULT) [address] [place] [address] 56316 Urea nitrogen [Mass/Vol] 23 mg/dL Normal 7-25 [facility] Comment on above: Performed By: #### X M #### [facility] (DEFAULT) [address] [place] [address] Urea nitrogen/Creatinine [Mass ratio] 44 mg/mg Normal [facility] Comment on above: Performed By: #### X M #### [facility] (DEFAULT) [address] [place] [address] Anion gap [Moles/Vol] 15 mmol/L 7 - 17 mmol/L [facility]lor[facility] [Moles/Vol] 102 mmol/L 98 - 10 8 mmol/L [facility] CO2 [Moles/Vol] 30 mmol/L 21 - 31 mmol/L [facility] Creatinine [Mass/Vol] 0.52 mg/dL 0.50 - 1.20 mg/dL [facility] GFR/1.73 sq M.predicted CKD-EPI (S/P/Bld) [Vol rate/Area] >90 >=60 mL/min/1.73m 2 [facility] Glucose [Mass/Vol] 140 mg/dL High 70 - 99 mg/dL [facility] Osmolality Calc [Osmolality] 305 [facility] Potassium [Moles/Vol] 4.0 mmol/L 3.5 - 5.0 mmol/L [facility] Sodium [Moles/Vol] 143 mmol/L 135 - 145 mmol/L [facility] Urea nitrogen [Mass/Vol] 23 mg/dL 7 - 25 mg/dL [facility] Urea nitrogen/Creatinine [Mass ratio] 44 mg/mg [facility] CT HEAD WITHOUT CONTRASTon 0 01-17-2022 CT HEAD WITHOUT CONTRAST EXAM: CT HEAD WITHOUT CONTRAST, 01/17/2022 3:03 AM COMPARISON: CT head, January 08, 2022. CLINICAL INDICATIONS: 66 years Female Traumatic brain injury (TBI), persistent deficits; follow up craniectomy for SDH TECHNIQUE: A series of transaxial computerized tomographic images are obtained from base of skull to vertex without intravenous contrast. Axial whole-head and thin section posterior fossa slices are provided. Reformats: Sagittal and coronal. FINDINGS: Status post right craniotomy for evacuation of acute subdural hematoma along the right cerebral convexity. Interval decrease in scalp swelling and subcutaneous gas. Stable to slightly decreased residual subdural hemorrhage along the right cerebral convexity most prominently along the right inferior frontal convexity measures up to 9 mm in maximal thickness (series 7 image 49). Decreased postoperative pneumocephalus. Decreased mass effect and leftward midline shift now measuring up to 5 mm (series 7 image 39), previously 6 mm. Stable to slightly decreased previously noted subfalcine herniation. No interval increase in right uncal and transtentorial herniation. Increased prominence of hypodensity in the medial right occipital lobe. Previously noted subarachnoid hemorrhage along the more lateral right temporal lobe is now more pronounced medially, overall volume appears grossly stable to slightly increased. Interval decrease in previously noted edema within the right cerebral hemisphere. 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 Stable chronic infarcts and bilateral cerebellar hemispheres. Decreased mass effect upon the ventricular system with continued reexpansion. Bifrontal measurement now measures 3.5 cm (series 7 image 40), previously 3.1 cm. Scattered opacification of the paranasal sinuses with near complete opacification of the left sphenoid sinus. Mastoid air cells are clear. Bilateral cataract surgery. Atherosclerotic calcifications at the skull base. Initially visualized nasogastric tube in the nasopharynx. IMPRESSION: 1. Status post post right craniotomy and right subdural hematoma evacuation with stable to slightly decreased hemorrhage most pronounced along the inferior frontal lobe. Decreased cerebral edema and midline shift. 2. More pronounced hypoattenuation of the right occipital lobe, consistent with expected maturation of subacute infarct. Adjacent subarachnoid hemorrhage is changed in position although appears grossly stable in volume versus slightly increased. 3. Decreased mass effect upon the ventricles. I personally viewed and interpreted these images and I have reviewed and approved this report. Normal [facility] CT Head WO contraston 2021 RADIOLOGY RADIOLOGY [facility] Radiology [facility]narrative[facility] WO contrastOrdered B y: Maureen Whitehead on 01-17-2022 [facility] Work Phone: FOLATE, SERUMon 01-17-2022 Folate 14.39 ng/mL Normal >5.38 [facility] Comment on above: Performed By: #### X M #### [facility] (DEFAULT) [address] [address] Folate [Mass/Vol] 14.39 ng/mL >5.38 [facility] IONIZED CALCIUM, WHOLE BLOOD on 01-17-2022 ICA 4.55 mg/dL Low 4.60-5.30 [facility] Comment on above: Performed By: #### I PB, CHM7, MGO #### [facility] (DEFAULT) [address] [address] Calcium.ionized (Bld) [Moles/Vol] 4.55 mg/dL Low 4.60 - 5.30 mg/dL [facility] Interpretation and review of laboratory results Abnormal [facility] IRON/IRON BINDING/TRANSFERRI Non 01-17-2022 Iron [Mass/Vol] 38 ug/dL Low 40-174 [facility] Comment on above: Performed By: #### X M #### [facility] (DEFAULT) [address] [address] Iron Saturation 18 % Low 20-55 [facility] Comment on above: Performed By: #### X M #### [facility] (DEFAULT) [address] [place] [address] 84660 Total Iron Binding Capacity 215 mcg/dL Low 250-425 [facility] Comment on above: Performed By: #### X M #### [facility] (DEFAULT) [address] [address] Transferrin [Mass/Vol] 172 mg/dL Low 200-400 [facility] Comment on above: Performed By: #### X M #### [facility] (DEFAULT) [address] [place] [address] 80312 Iron [Mass/Vol] 38 ug/dL Low [facility] Iron binding capacity [Mass/Vol] 215 Low [facility] Iron saturation [Mass fraction] 18 % Low 20 - 55 % [facility] Transferrin [Mass/Vol] 172 mg/dL Low 200 - 400 mg/dL [facility] MAGNESIUMon 01-17-2022 Magnesium [Mass/Vol] 1.8 mg/dL Normal 1.6-2.6 [facility] Comment on above: Performed By: #### X M #### [facility] (DEFAULT) [address] [place] [address] 64222 Magnesium [Mass/Vol] 1.8 mg/dL 1.6 - 2 .6 mg/dL [facility] No Panel Informationon 01-17 Interpretation and review of laboratory results Abnormal [facility] Interpretation and review of laboratory results Normal [facility] PHOSPHATE, INORGANICon 01-17 Phosphorous 4.0 mg/dL Normal 2.2-4.6 [facility] Comment on above: Performed By: #### X M #### [facility] (DEFAULT) [address] [address] Phosphate [Mass/Vol] 4.0 mg/dL 2.2 - 4 .6 mg/dL [facility] SYPHILIS AB W/REFLEX RPRon 0 01-17-2022 Syphilis IgG/IGM Total Non-Reactive Normal Non Reactiv e [facility] Comment on above: Performed By: #### X M #### [facility] (DEFAULT) [address] [address] T. pallidum Ab Ql (S)Ordered By: Bárbara Vyas on 01-17-2022 Interpretation and review of laboratory results Normal [facility] T. pallidum IgG Ql (S) Non-Reactive Non Reactiv e [facility] T4 FREEon 01-17-2022 Free T4 [Mass/Vol] 1.02 ng/dL Normal 0.89-1.76 [facility] Comment on above: Performed By: #### X M #### [facility] (DEFAULT) [address] [place] [address] Free T4 [Mass/Vol] 1.02 ng/dL 0.89 - 1. 76 ng/dL [facility] Interpretation and review of laboratory results Normal [facility] TSH W/FT4 REFLEXon TSH 6.402 uIU/mL High 0.550-4.780 [facility] Comment on above: Performed By: #### X M #### [facility] (DEFAULT) [address] [place] [address]22 Interpretation and review of laboratory results Abnormal [facility] TSH Qn 6.402 m[IU]/L High [facility] US.doppler Upper extremity v ein - rightOrdered By: Kaylee Moraes on 01-17-2022 [facility] Work Phone: CBC,PLATELETSon 01-16-2022 Hematocrit (Bld) [Volume fraction] 26.1 % Low 34.9-44.3 [facility] Comment on above: Performed By: #### I ANTELMO MONTESINOS, MGO #### [facility] (DEFAULT) [address] [place] [address]322 Hemoglobin (Bld) [Mass/Vol] 8.3 g/dL Low 11.4-15.2 [facility] Comment on above: Performed By: #### I HARJEET MONTESINOSMDany, MGO #### [facility] (DEFAULT) [address] [place] [address] 20647 MCV (RBC) [Entitic vol] 85.3 fL Normal 79.6-97.7 [facility] Comment on above: Performed By: #### I YAMEL CHM7, MGO #### [facility] (DEFAULT) [address] [place] [address] 47747 Mean Cell Hgb 27.1 pg Normal 25.9-33.9 [facility] Comment on above: Performed By: #### I PB, CHM7, MGO #### [facility] (DEFAULT) [address] [place] [address] 71071 Mean Cell Hgb Conc 31.8 g/dL Normal 31.4-35.9 [facility] Comment on above: Performed By: #### I PB, CHM7, MGO #### U [facility] (DEFAULT) [address] [place] [address] 05509 Platelet mean volume (Bld) [Entitic vol] 10.1 fL Normal 8.5-12.2 [facility] Comment on above: Performed By: #### I PB, CHM7, MGO #### [facility] (DEFAULT) [address] [place] [address] 65078 Platelets (Bld) [#/Vol] 284 10*3/uL Normal 150-393 [facility] Comment on above: Performed By: #### I PB, CHM7, MGO #### [facility] (DEFAULT) [address] [place] [address] 24776 RBC (Bld) [#/Vol] 3.06 10*6/uL Low 3.91-5.04 [facility] Comment on above: Performed By: #### I PB, CHM7, MGO #### U [facility] (DEFAULT) [address] [place] [address] 49483 RBC Distribution 18.7 % High 10.8-14.9 [facility] Comment on above: Performed By: #### I PB, CHM7, MGO #### U [facility] (DEFAULT) [address] [place] [address] 26565 WBC (Bld) [#/Vol] 11.32 10*3/uL High 3.99-11.19 [facility] Comment on above: Performed By: #### I PB, CHM7, MGO #### U [facility] (DEFAULT) [address] [place] [address] 10418 Erythrocyte distribution width (RBC) [Ratio] 18.7 % High 10.8 - 14.9 % [facility] Hematocrit (Bld) [Volume fraction] 26.1 % Low 34.9 - 44.3 % [facility] Hemoglobin (Bld) [Mass/Vol] 8.3 g/dL Low 11.4 - 15.2 g/dL [facility] Interpretation and review of laboratory results Abnormal [facility] MCH (RBC) [Entitic mass] 27.1 pg 25.9 - 33.9 pg [facility] MCHC (RBC) [Mass/Vol] 31.8 g/dL 31.4 - 35.9 g/dL [facility] MCV (RBC) [Entitic vol] 85.3 fL 79.6 - 97.7 fL [facility] Platelet mean volume (Bld) [Entitic vol] 10.1 fL 8.5 - 12.2 fL [facility] Platelets (Bld) [#/Vol] 284 10*3/uL 150 - 393 K/uL [facility] RBC (Bld) [#/Vol] 3.06 10*6/uL Low [facility] WBC (Bld) [#/Vol] 11.32 10*3/uL High 3.99 - 11 .19 K/uL [facility] CHEM 7 (LYTES,BUN,CREA,GLUC) on 01-16-2022 Anion gap [Moles/Vol] 13 mmol/L Normal 7-17 [facility] Comment on above: Performed By: #### X M #### [facility] (DEFAULT) [address] [place] [address] Chloride [Moles/Vol] 103 mmol/L Normal 98-108 [facility] Comment on above: Performed By: #### X M #### [facility] (DEFAULT) [address] [place] [address] CO2 [Moles/Vol] 31 mmol/L Normal 21-31 [facility] Comment on above: Performed By: #### X M #### [facility] (DEFAULT) [address] [place] [address] 21387 Creatinine [Mass/Vol] 0.47 mg/dL Low 0.50-1.20 [facility] Comment on above: Performed By: #### X M #### U [facility] (DEFAULT) [address] [place] [address] 52346 eGFR, CKD-EPI, Female >90 Normal >=60 [facility] Comment on above: Result Comment: Repo rted eGFR is based on the CKD-EPI 2020 equation using creatinine, age, and sex. Performed By: #### X M #### [facility] (DEFAULT) [address] [place] [address] 53930 Glucose [Mass/Vol] 127 mg/dL High 70-99 [facility] Comment on above: Performed By: #### X M #### [facility] (DEFAULT) [address] [place] [address] 03434 Osmolality [Osmolality] 303 mosm/kg Normal 278-305 [facility] Comment on above: Performed By: #### X M #### [facility] (DEFAULT) [address] [place] [address] 60359 Potassium [Moles/Vol] 4.0 mmol/L Normal 3.5-5.0 [facility] Comment on above: Performed By: #### X M #### [facility] (DEFAULT) [address] [place] [address] 91776 Sodium [Moles/Vol] 143 mmol/L Normal 135-145 [facility] Comment on above: Performed By: #### X M #### [facility] (DEFAULT) [address] [place] [address] 43304 Urea nitrogen [Mass/Vol] 21 mg/dL Normal 7-25 [facility] Comment on above: Performed By: #### X M #### [facility] (DEFAULT) [address] [place] [address] 84104 Urea nitrogen/Creatinine [Mass ratio] 45 mg/mg Normal [facility] Comment on above: Performed By: #### X M #### [facility] (DEFAULT) [address] [place] [address] Anion gap [Moles/Vol] 13 mmol/L 7 - 17 mmol/L [facility] Chloride [Moles/Vol] 103 mmol/L 98 - 10 8 mmol/L [facility] CO2 [Moles/Vol] 31 mmol/L 21 - 31 mmol/L [facility] Creatinine [Mass/Vol] 0.47 mg/dL Low 0.50 - 1.20 mg/dL [facility] GFR/1.73 sq M.predicted CKD-EPI (S/P/Bld) [Vol rate/Area] >90 >=60 mL/min/1.73m 2 [facility] Glucose [Mass/Vol] 127 mg/dL High 70 - 99 mg/dL [facility] Interpretation and review of laboratory results Abnormal [facility] Osmolality Calc [Osmolality] 303 [facility] Potassium [Moles/Vol] 4.0 mmol/L 3.5 - 5.0 mmol/L [facility] Sodium [Moles/Vol] 143 mmol/L 135 - 145 mmol/L [facility] Urea nitrogen [Mass/Vol] 21 mg/dL 7 - 25 mg/dL [facility] Urea nitrogen/Creatinine [Mass ratio] 45 mg/mg [facility] HIV 1 AND 2 ANTIBODIESOrdere d By: Julia Laird on 01-16-2022 HIV 1+2 Ab+HIV1 p24 Ag IA Ql Non-Reactive Non Reactive [facility] HIV 1 AND 2 ANTIBODIESon HIV-1/HIV-2 Ab With p24 Antigen Non-Reactive Normal Non Reactive [facility] Comment on above: Performed By: #### T YPEC #### [facility] (DEFAULT) [address] [place] [address] HIV 1+2 Ab+HIV1 p24 Ag IA Ql Ordered By: Julia Laird on 01-16-2022 Interpretation and review of laboratory results Normal [facility] IONIZED CALCIUM, WHOLE BLOOD on 01-16-2022 ICA 4.32 mg/dL Low 4.60-5.30 [facility] Comment on above: Performed By: #### X M #### [facility] (DEFAULT) [address] [place] [address] 67174 IONIZED CALCIUM, WHOLE BLOOD Ordered By: Emily Nayak on 01-16-2022 Calcium.ionized (Bld) [Moles/Vol] 4.32 mg/dL Low 4.60 - 5.30 mg/dL [facility] Interpretation and review of laboratory results Abnormal [facility] MAGNESIUMon 01-16-2022 Magnesium [Mass/Vol] 1.8 mg/dL Normal 1.6-2.6 [facility] Comment on above: Performed By: #### X M #### [facility] (DEFAULT) [address] [place] [address] 03425 Magnesium [Mass/Vol] 1.8 mg/dL 1.6 - 2 .6 mg/dL [facility] No Panel Informationon 01-16 Interpretation and review of laboratory results Normal [facility] PHOSPHATE, INORGANICon 01-16 Phosphorous 3.5 mg/dL Normal 2.2-4.6 [facility] Comment on above: Performed By: #### X M #### [facility] (DEFAULT) [address] [place] [address] 54642 Phosphate [Mass/Vol] 3.5 mg/dL 2.2 - 4 .6 mg/dL [facility] US.doppler Upper extremity v ein - righton 01-16-2022 Radiology Study observation (narrative) [facility] VITAMIN B12on 01-16-2022 Cobalamin (Vitamin B12) [Mass/Vol] 877 pg/mL 211 - 911 pg/mL [facility] Interpretation and review of laboratory results Normal [facility] Cobalamin (Vitamin B12) [Mass/Vol] 877 pg/mL Normal 211-911 [facility] Comment on above: Result Comment: Test ing of Methylmalonic Acid and Intrinsic Factor Blocking Antibody are recommended if clinical suspicion for pernicious anemia due to B12 deficiency is high for patients with intermediate B12 levels (211 to 400 pg/mL) to rule out spurious heterophile antibodies. Performed By: #### X M #### [facility] (DEFAULT) [address] [address] CBC,PLATELETSon 01-15-2022 Hematocrit (Bld) [Volume fraction] 22.9 % Low 34.9-44.3 [facility] Comment on above: Performed By: #### I PB, CHM7, MGO #### [facility] (DEFAULT) [address] [address] Hemoglobin (Bld) [Mass/Vol] 7.0 g/dL Low 11.4-15.2 [facility] Comment on above: Performed By: #### I PB, CHM7, MGO #### [facility] (DEFAULT) [address] [address] MCV (RBC) [Entitic vol] 90.9 fL Normal 79.6-97.7 [facility] Comment on above: Performed By: #### I PB, CHM7, MGO #### [facility] (DEFAULT) [address] [address] Mean Cell Hgb 27.8 pg Normal 25.9-33.9 [facility] Comment on above: Performed By: #### I PB, CHM7, MGO #### [facility] (DEFAULT) [address] [place] [address] 46309 Mean Cell Hgb Conc 30.6 g/dL Low 31.4-35.9 [facility] Comment on above: Performed By: #### I PB, CHM7, MGO #### [facility] (DEFAULT) [address] [address] Platelet mean volume (Bld) [Entitic vol] 10.2 fL Normal 8.5-12.2 [facility] Comment on above: Performed By: #### I PB, CHM7, MGO #### [facility] (DEFAULT) [address] [place] [address] 51902 Platelets (Bld) [#/Vol] 245 10*3/uL Normal 150-393 [facility] Comment on above: Performed By: #### I PB, CHM7, MGO #### [facility] (DEFAULT) [address] [place] [address] 33838 RBC (Bld) [#/Vol] 2.52 10*6/uL Low 3.91-5.04 [facility] Comment on above: Performed By: #### I PB, CHM7, MGO #### [facility] (DEFAULT) [address] [place] [address] 83545 RBC Distribution 15.6 % High 10.8-14.9 [facility] Comment on above: Performed By: #### I PB, CHM7, MGO #### [facility] (DEFAULT) [address] [place] [address] 51838 WBC (Bld) [#/Vol] 10.82 10*3/uL Normal 3.99-11.19 [facility] Comment on above: Performed By: #### I PB, CHM7, MGO #### [facility] (DEFAULT) [address] [place] [address] 50058 Erythrocyte distribution width (RBC) [Ratio] 15.6 % High 10.8 - 14.9 % [facility] Hematocrit (Bld) [Volume fraction] 22.9 % Low 34.9 - 44.3 % [facility] Hemoglobin (Bld) [Mass/Vol] 7.0 g/dL Low 11.4 - 15.2 g/dL [facility] Interpretation and review of laboratory results Abnormal [facility] MCH (RBC) [Entitic mass] 27.8 pg 25.9 - 33.9 pg [facility] MCHC (RBC) [Mass/Vol] 30.6 g/dL Low 31.4 - 35.9 g/dL [facility] MCV (RBC) [Entitic vol] 90.9 fL 79.6 - 97.7 fL [facility] Platelet mean volume (Bld) [Entitic vol] 10.2 fL 8.5 - 12.2 fL [facility] Platelets (Bld) [#/Vol] 245 10*3/uL 150 - 393 K/uL [facility] RBC (Bld) [#/Vol] 2.52 10*6/uL Low [facility] WBC (Bld) [#/Vol] 10.82 10*3/uL 3.99 - 11 .19 K/uL [facility] CHEM 7 (LYTES,BUN,CREA,GLUC) on 01-15-2022 Anion gap [Moles/Vol] 10 mmol/L Normal 7-17 [facility] Comment on above: Performed By: #### G AS5L #### [facility] (DEFAULT) [address] [place] [address] 88940 Chloride [Moles/Vol] 102 mmol/L Normal 98-108 [facility] Comment on above: Performed By: #### G AS5L #### [facility] (DEFAULT) [address] [place] [address] CO2 [Moles/Vol] 35 mmol/L High 21-31 [facility] Comment on above: Performed By: #### G AS5L #### [facility] (DEFAULT) [address] [place] [address] Creatinine [Mass/Vol] 0.59 mg/dL Normal 0.50-1.20 [facility] Comment on above: Performed By: #### G AS5L #### [facility] (DEFAULT) [address] [place] [address] 95859 eGFR, CKD-EPI, Female >90 Normal >=60 [facility] Comment on above: Result Comment: Repo rted eGFR is based on the CKD-EPI 2020 equation using creatinine, age, and sex. Performed By: #### Maritza AS5L #### Jose Rafael [facility] (DEFAULT) [address] [place] [address] 13872 Glucose [Mass/Vol] 130 mg/dL High 70-99 [facility] Comment on above: Performed By: #### Maritza AS5L #### Jose Rafael [facility] (DEFAULT) [address] [place] [address] 36602 Osmolality [Osmolality] 304 mosm/kg Normal 278-305 [facility] Comment on above: Performed By: #### Maritza AS5L #### Jose Rafael [facility] (DEFAULT) [address] [place] [address] 49375 Potassium [Moles/Vol] 4.1 mmol/L Normal 3.5-5.0 [facility] Comment on above: Performed By: #### Maritza AS5L #### Jose Rafael [facility] (DEFAULT) [address] [place] [address] 96144 Sodium [Moles/Vol] 143 mmol/L Normal 135-145 [facility] Comment on above: Performed By: #### Maritza AS5L #### [facility] (DEFAULT) [address] [place] [address] 13510 Urea nitrogen [Mass/Vol] 23 mg/dL Normal 7-25 [facility] Comment on above: Performed By: #### Maritza AS5L #### Jose Rafael [facility] (DEFAULT) [address] [place] [address] 59800 Urea nitrogen/Creatinine [Mass ratio] 39 mg/mg Normal [facility] Comment on above: Performed By: #### G AS5L #### [facility] (DEFAULT) [address] [place] [address] 97182 Anion gap [Moles/Vol] 10 mmol/L 7 - 17 mmol/L [facility] Chloride [Moles/Vol] 102 mmol/L 98 - 10 8 mmol/L [facility] CO2 [Moles/Vol] 35 mmol/L High 21 - 31 mmol/L [facility] Creatinine [Mass/Vol] 0.59 mg/dL 0.50 - 1.20 mg/dL [facility] GFR/1.73 sq M.predicted CKD-EPI (S/P/Bld) [Vol rate/Area] >90 >=60 mL/min/1.73m 2 [facility] Glucose [Mass/Vol] 130 mg/dL High 70 - 99 mg/dL [facility] Interpretation and review of laboratory results Abnormal [facility] Osmolality Calc [Osmolality] 304 [facility] Potassium [Moles/Vol] 4.1 mmol/L 3.5 - 5.0 mmol/L [facility] Sodium [Moles/Vol] 143 mmol/L 135 - 145 mmol/L [facility] Urea nitrogen [Mass/Vol] 23 mg/dL 7 - 25 mg/dL [facility] Urea nitrogen/Creatinine [Mass ratio] 39 mg/mg [facility] HEMOGLOBIN & HEMATOCRITon Hematocrit (Bld) [Volume fraction] 27.7 % Low 34.9-44.3 [facility] Comment on above: Performed By: #### I HARJEET MONTESINOSM7, MGO #### [facility] (DEFAULT) [address] [address] Hemoglobin (Bld) [Mass/Vol] 8.5 g/dL Low 11.4-15.2 [facility] Comment on above: Performed By: #### I YAMEL CHM7, MGO #### [facility] (DEFAULT) [address] [place] [address] 49749 Hematocrit (Bld) [Volume fraction] 27.7 % Low 34.9 - 44.3 % [facility] Hemoglobin (Bld) [Mass/Vol] 8.5 g/dL Low 11.4 - 15.2 g/dL [facility] Interpretation and review of laboratory results Abnormal [facility] IONIZED CALCIUM, WHOLE BLOOD Ordered By: Kacy Pascal on 01-15-2022 Calcium.ionized (Bld) [Moles/Vol] 4.64 mg/dL 4.60 - 5.30 mg/dL [facility] Interpretation and review of laboratory results Normal [facility] IONIZED CALCIUM, WHOLE BLOOD on 01-15-2022 ICA 4.64 mg/dL Normal 4.60-5.30 [facility] Comment on above: Performed By: #### T YPEC #### [facility] (DEFAULT) [address] [place] [address] 61606 MAGNESIUMon 01-15-2022 Magnesium [Mass/Vol] 1.9 mg/dL Normal 1.6-2.6 [facility] Comment on above: Performed By: #### G AS5L #### [facility] (DEFAULT) [address] [place] [address] 19244 Magnesium [Mass/Vol] 1.9 mg/dL 1.6 - 2 .6 mg/dL [facility] No Panel Informationon 01-15 [facility] Interpretation and review of laboratory results Normal [facility] PHOSPHATE, INORGANICon 01-15 Phosphorous 3.3 mg/dL Normal 2.2-4.6 [facility] Comment on above: Performed By: #### G AS5L #### [facility] (DEFAULT) [address] [place] [address] 69778 Phosphate [Mass/Vol] 3.3 mg/dL 2.2 - 4 .6 mg/dL [facility] PREPARE TO TRANSFUSE RED BLO OD CELLSon 01-15-2022 ABO/RH(D) TYPE Positive [facility] BLOOD COMPONENT TYPE Red Cells, Leukoreduced [facility] EXPIRATION DATE [facility] Product ABO/RH(D) Positive [facility] Product ABO/RH(D) NUMBER 6200 [facility] PRODUCT CODE [id number] [facility] UNIT NUMBER [id number] [facility] UNIT STATUS transfused [facility] TYPE AND SCREENon 01-15-2022 ABO/RH(D) TYPE Positive Normal [facility] Comment on above: Result Comment: @ 09:03 by AB1: Performed By: #### X M #### [facility] (DEFAULT) [address] [address] ABO/RH(D) TYPE Positive [facility] Bacteria identified Cx Nom ( Bld)on 01-14-2022 Bacteria identified Cx Nom (Unsp spec) NO GROWTH DAY 5 OF 5 [facility] Bacteria identified Cx Nom (Unsp spec) NO GROWTH DAY 5 OF 5 [facility] CBC,PLATELETSon 01-14-2022 Hematocrit (Bld) [Volume fraction] 24.0 % Low 34.9-44.3 [facility] Comment on above: Performed By: #### X M #### [facility] (DEFAULT) [address] [address] Hemoglobin (Bld) [Mass/Vol] 7.1 g/dL Low 11.4-15.2 [facility] Comment on above: Performed By: #### X M #### [facility] (DEFAULT) [address] [address] MCV (RBC) [Entitic vol] 92.7 fL Normal 79.6-97.7 [facility] Comment on above: Performed By: #### X M #### [facility] (DEFAULT) [address] [address] Mean Cell Hgb 27.4 pg Normal 25.9-33.9 [facility] Comment on above: Performed By: #### X M #### [facility] (DEFAULT) [address] [address] Mean Cell Hgb Conc 29.6 g/dL Low 31.4-35.9 [facility] Comment on above: Performed By: #### X M #### [facility] (DEFAULT) [address] [place] [address] Platelet mean volume (Bld) [Entitic vol] 10.2 fL Normal 8.5-12.2 [facility] Comment on above: Performed By: #### X M #### [facility] (DEFAULT) [address] [place] [address] 52750 Platelets (Bld) [#/Vol] 224 10*3/uL Normal 150-393 [facility] Comment on above: Performed By: #### X M #### [facility] (DEFAULT) [address] [place] [address] 03859 RBC (Bld) [#/Vol] 2.59 10*6/uL Low 3.91-5.04 [facility] Comment on above: Performed By: #### X M #### [facility] (DEFAULT) [address] [place] [address] 38223 RBC Distribution 15.2 % High 10.8-14.9 [facility] Comment on above: Performed By: #### X M #### [facility] (DEFAULT) [address] [place] [address] 89869 WBC (Bld) [#/Vol] 10.06 10*3/uL Normal 3.99-11.19 [facility] Comment on above: Performed By: #### X M #### [facility] (DEFAULT) [address] [place] [address] 9[address]26 Erythrocyte distribution width (RBC) [Ratio] 15.2 % High 10.8 - 14.9 % [facility] Hematocrit (Bld) [Volume fraction] 24.0 % Low 34.9 - 44.3 % [facility] Hemoglobin (Bld) [Mass/Vol] 7.1 g/dL Low 11.4 - 15.2 g/dL [facility] Interpretation and review of laboratory results Abnormal [facility] MCH (RBC) [Entitic mass] 27.4 pg 25.9 - 33.9 pg [facility] MCHC (RBC) [Mass/Vol] 29.6 g/dL Low 31.4 - 35.9 g/dL [facility] MCV (RBC) [Entitic vol] 92.7 fL 79.6 - 97.7 fL [facility] Platelet mean volume (Bld) [Entitic vol] 10.2 fL 8.5 - 12.2 fL [facility] Platelets (Bld) [#/Vol] 224 10*3/uL 150 - 393 K/uL [facility] RBC (Bld) [#/Vol] 2.59 10*6/uL Low [facility] WBC (Bld) [#/Vol] 10.06 10*3/uL 3.99 - 11 .19 K/uL [facility] CHEM 7 (LYTES,BUN,CREA,GLUC) on 01-14-2022 Anion gap [Moles/Vol] 9 mmol/L Normal 7-17 [facility] Comment on above: Performed By: #### X M #### [facility] (DEFAULT) [address] [address] Chloride [Moles/Vol] 103 mmol/L Normal 98-108 [facility] Comment on above: Performed By: #### X M #### [facility] (DEFAULT) [address] [place] [address] CO2 [Moles/Vol] 37 mmol/L High 21-31 [facility] Comment on above: Performed By: #### X M #### [facility] (DEFAULT) [address] [address] Creatinine [Mass/Vol] 0.57 mg/dL Normal 0.50-1.20 [facility] Comment on above: Performed By: #### X M #### [facility] (DEFAULT) [address] [place] [address] eGFR, CKD-EPI, Female >90 Normal >=60 [facility] Comment on above: Result Comment: Repo rted eGFR is based on the CKD-EPI 2020 equation using creatinine, age, and sex. Performed By: #### X M #### U [facility] (DEFAULT) [address] [place] [address] Glucose [Mass/Vol] 97 mg/dL Normal 70-99 [facility] Comment on above: Performed By: #### X M #### U [facility] (DEFAULT) [address] [place] [address] Osmolality [Osmolality] 306 mosm/kg High 278-305 [facility] Comment on above: Performed By: #### X M #### [facility] (DEFAULT) [address] [place] [address] 62621 Potassium [Moles/Vol] 4.2 mmol/L Normal 3.5-5.0 [facility] Comment on above: Performed By: #### X M #### [facility] (DEFAULT) [address] [place] [address] 86741 Sodium [Moles/Vol] 145 mmol/L Normal 135-145 [facility] Comment on above: Performed By: #### X M #### [facility] (DEFAULT) [address] [place] [address]152 Urea nitrogen [Mass/Vol] 22 mg/dL Normal 7-25 [facility] Comment on above: Performed By: #### X M #### [facility] (DEFAULT) [address] [place] [address] 266[address] Urea nitrogen/Creatinine [Mass ratio] 39 mg/mg Normal [facility] Comment on above: Performed By: #### X M #### [facility] (DEFAULT) [address] [place] [address] Anion gap [Moles/Vol] 9 mmol/L 7 - 17 mmol/L [facility] Chloride [Moles/Vol] 103 mmol/L 98 - 10 8 mmol/L [facility] CO2 [Moles/Vol] 37 mmol/L High 21 - 31 mmol/L [facility] Creatinine [Mass/Vol] 0.57 mg/dL 0.50 - 1.20 mg/dL [facility] GFR/1.73 sq M.predicted CKD-EPI (S/P/Bld) [Vol rate/Area] >90 >=60 mL/min/1.73m 2 [facility] [facility] Glucose [Mass/Vol] 97 mg/dL 70 - 99 mg/dL [facility] Interpretation and review of laboratory results Abnormal [facility] Osmolality Calc [Osmolality] 306 High [facility] Potassium [Moles/Vol] 4.2 mmol/L 3.5 - 5.0 mmol/L [facility] Sodium [Moles/Vol] 145 mmol/L 135 - 145 mmol/L [facility] Urea nitrogen [Mass/Vol] 22 mg/dL 7 - 25 mg/dL [facility] Urea nitrogen/Creatinine [Mass ratio] 39 mg/mg [facility] GLUCOSE POCon 01-14-2022 Glucose [Mass/Vol] 118 mg/dL High 70 - 99 mg/dL [facility] Glucose [Mass/Vol] 124 mg/dL High 70 - 99 mg/dL [facility] Glucose [Mass/Vol] 111 mg/dL High 70 - 99 mg/dL [facility] Glucose [Mass/Vol] 129 mg/dL High 70 - 99 mg/dL [facility] Glucose [Mass/Vol] 116 mg/dL High 70 - 99 mg/dL [facility] IONIZED CALCIUM, WHOLE BLOOD on 01-14-2022 ICA 4.49 mg/dL Low 4.60-5.30 [facility] Comment on above: Performed By: #### I PB, CHM7, MGO #### [facility] (DEFAULT) [address] [place] [address] IONIZED CALCIUM, WHOLE BLOOD Ordered By: Adriano Argueta on 01-14-2022 Calcium.ionized (Bld) [Moles/Vol] 4.49 mg/dL Low 4.60 - 5.30 mg/dL [facility] Interpretation and review of laboratory results Abnormal [facility] MAGNESIUMon 01-14-2022 Magnesium [Mass/Vol] 1.9 mg/dL Normal 1.6-2.6 [facility] Comment on above: Performed By: #### X M #### [facility] (DEFAULT) [address] [place] [address] Magnesium [Mass/Vol] 1.9 mg/dL 1.6 - 2 .6 mg/dL [facility] No Panel Informationon 01-14 Interpretation and review of laboratory results Abnormal [facility] POC Sample Type CAPBL [facility] Interpretation and review of laboratory results Abnormal [facility] POC Sample Type CAPBL [facility] Interpretation and review of laboratory results Normal [facility] PHOSPHATE, INORGANICon 01-14 Phosphorous 3.5 mg/dL Normal 2.2-4.6 [facility] Comment on above: Performed By: #### X M #### [facility] (DEFAULT) [address] [place] [address]236 Phosphate [Mass/Vol] 3.5 mg/dL 2.2 - 4 .6 mg/dL [facility] CBC,PLATELETSon 01-13-2022 Hematocrit (Bld) [Volume fraction] 27.6 % Low 34.9-44.3 [facility] Comment on above: Performed By: #### I ANTELMO MONTESINOS, MGO #### [facility] (DEFAULT) [address] [place] [address] 63096 Hemoglobin (Bld) [Mass/Vol] 8.1 g/dL Low 11.4-15.2 [facility] Comment on above: Performed By: #### I PB CHMDany, MGO #### [facility] (DEFAULT) [address] [place] [address] 03900 MCV (RBC) [Entitic vol] 94.2 fL Normal 79.6-97.7 [facility] Comment on above: Performed By: #### I PB, CHM7, MGO #### [facility] (DEFAULT) [address] [place] [address] 14508 Mean Cell Hgb 27.6 pg Normal 25.9-33.9 [facility] Comment on above: Performed By: #### I PB, CHM7, MGO #### [facility] (DEFAULT) [address] [place] [address] 48363 Mean Cell Hgb Conc 29.3 g/dL Low 31.4-35.9 [facility] Comment on above: Performed By: #### I PB, CHM7, MGO #### [facility] (DEFAULT) [address] [place] [address] 14355 Platelet mean volume (Bld) [Entitic vol] 10.3 fL Normal 8.5-12.2 [facility] Comment on above: Performed By: #### I PB, CHM7, MGO #### [facility] (DEFAULT) [address] [place] [address] 64474 Platelets (Bld) [#/Vol] 237 10*3/uL Normal 150-393 [facility] Comment on above: Performed By: #### I PB, CHM7, MGO #### [facility] (DEFAULT) [address] [place] [address] 33021 RBC (Bld) [#/Vol] 2.93 10*6/uL Low 3.91-5.04 [facility] Comment on above: Performed By: #### I PB, CHM7, MGO #### [facility] (DEFAULT) [address] [place] [address] 48712 RBC Distribution 15.3 % High 10.8-14.9 [facility] Comment on above: Performed By: #### I PB, CHM7, MGO #### [facility] (DEFAULT) [address] [place] [address] WBC (Bld) [#/Vol] 10.20 10*3/uL Normal 3.99-11.19 [facility] Comment on above: Performed By: #### I PB, CHM7, MGO #### [facility] (DEFAULT) [address] [place] [address] Erythrocyte distribution width (RBC) [Ratio] 15.3 % High 10.8 - 14.9 % [facility] Hematocrit (Bld) [Volume fraction] 27.6 % Low 34.9 - 44.3 % [facility] Hemoglobin (Bld) [Mass/Vol] 8.1 g/dL Low 11.4 - 15.2 g/dL [facility] Interpretation and review of laboratory results Abnormal [facility] MCH (RBC) [Entitic mass] 27.6 pg 25.9 - 33.9 pg [facility] MCHC (RBC) [Mass/Vol] 29.3 g/dL Low 31.4 - 35.9 g/dL [facility] MCV (RBC) [Entitic vol] 94.2 fL 79.6 - 97.7 fL [facility] Platelet mean volume (Bld) [Entitic vol] 10.3 fL 8.5 - 12.2 fL [facility] Platelets (Bld) [#/Vol] 237 10*3/uL 150 - 393 K/uL [facility] RBC (Bld) [#/Vol] 2.93 10*6/uL Low [facility] WBC (Bld) [#/Vol] 10.20 10*3/uL 3.99 - 11 .19 K/uL [facility] CHEM 7 (LYTES,BUN,CREA,GLUC) on 01-13-2022 Anion gap [Moles/Vol] 15 mmol/L Normal 7-17 [facility] Comment on above: Performed By: #### I PB, CHM7, MGO #### [facility] (DEFAULT) [address] [place] [address] 47211 Chloride [Moles/Vol] 105 mmol/L Normal 98-108 [facility] Comment on above: Performed By: #### I PB, CHM7, MGO #### [facility] (DEFAULT) [address] [place] [address] 40102 CO2 [Moles/Vol] 25 mmol/L Normal 21-31 [facility] Comment on above: Performed By: #### I PB, CHM7, MGO #### [facility] (DEFAULT) [address] [place] [address] 47974 Creatinine [Mass/Vol] 0.59 mg/dL Normal 0.50-1.20 [facility] Comment on above: Performed By: #### I PB, CHM7, MGO #### [facility] (DEFAULT) [address] [place] [address] 51481 eGFR, CKD-EPI, Female >90 Normal >=60 [facility] Comment on above: Result Comment: Repo rted eGFR is based on the CKD-EPI 2020 equation using creatinine, age, and sex. Performed By: #### I PB, CHM7, MGO #### [facility] (DEFAULT) [address] [place] [address] 63123 Glucose [Mass/Vol] 118 mg/dL High 70-99 [facility] Comment on above: Performed By: #### I PB, CHM7, MGO #### [facility] (DEFAULT) [address] [place] [address] 51376 Osmolality [Osmolality] 300 mosm/kg Normal 278-305 [facility] Comment on above: Performed By: #### I PB, CHM7, MGO #### [facility] (DEFAULT) [address] [place] [address] 81996 Potassium [Moles/Vol] 4.3 mmol/L Normal 3.5-5.0 [facility] Comment on above: Performed By: #### I PB, CHM7, MGO #### [facility] (DEFAULT) [address] [place] [address] Sodium [Moles/Vol] 141 mmol/L Normal 135-145 [facility] Comment on above: Performed By: #### I PB, CHM7, MGO #### [facility] (DEFAULT) [address] [place] [address] 81590 Urea nitrogen [Mass/Vol] 23 mg/dL Normal 7-25 [facility] Comment on above: Performed By: #### I PB, CHM7, MGO #### [facility] (DEFAULT) [address] [place] [address] 43621 Urea nitrogen/Creatinine [Mass ratio] 39 mg/mg Normal [facility] Comment on above: Performed By: #### Derick MONTESINOS, CHM7, MGO #### [facility] (DEFAULT) [address] [place] [address] 51337 Anion gap [Moles/Vol] 15 mmol/L 7 - 17 mmol/L [facility] Chloride [Moles/Vol] 105 mmol/L 98 - 10 8 mmol/L [facility] CO2 [Moles/Vol] 25 mmol/L 21 - 31 mmol/L [facility] Creatinine [Mass/Vol] 0.59 mg/dL 0.50 - 1.20 mg/dL [facility] GFR/1.73 sq M.predicted CKD-EPI (S/P/Bld) [Vol rate/Area] >90 >=60 mL/min/1.73m 2 [facility] Glucose [Mass/Vol] 118 mg/dL High 70 - 99 mg/dL [facility] Interpretation and review of laboratory results Abnormal [facility] Osmolality Calc [Osmolality] 300 [facility] Potassium [Moles/Vol] 4.3 mmol/L 3.5 - 5.0 mmol/L [facility] Sodium [Moles/Vol] 141 mmol/L 135 - 145 mmol/L [facility] Urea nitrogen [Mass/Vol] 23 mg/dL 7 - 25 mg/dL [facility] Urea nitrogen/Creatinine [Mass ratio] 39 mg/mg [facility] GLUCOSE POCon 01-13-2022 Glucose [Mass/Vol] 103 mg/dL High 70 - 99 mg/dL [facility] Interpretation and review of laboratory results Abnormal [facility] POC Sample Type CAPBL [facility] Glucose [Mass/Vol] 115 mg/dL High 70 - 99 mg/dL [facility] Interpretation and review of laboratory results Abnormal [facility] POC Sample Type CAPBL [facility] IONIZED CALCIUM, WHOLE BLOOD on 01-13-2022 ICA 4.80 mg/dL Normal 4.60-5.30 [facility] Comment on above: Performed By: #### T YPEC #### [facility] (DEFAULT) [address] [place] [address]602 IONIZED CALCIUM, WHOLE BLOOD Ordered By: Rodney Jimenez on 01-13-2022 Calcium.ionized (Bld) [Moles/Vol] 4.80 mg/dL 4.60 - 5.30 mg/dL [facility] Interpretation and review of laboratory results Normal [facility] MAGNESIUMon 01-13-2022 Magnesium [Mass/Vol] 1.8 mg/dL Normal 1.6-2.6 [facility] Comment on above: Performed By: #### I PB, CHM7, MGO #### [facility] (DEFAULT) [address] [place] [address] 33014 Magnesium [Mass/Vol] 1.8 mg/dL 1.6 - 2 .6 mg/dL [facility] No Panel Informationon 01-13 Interpretation and review of laboratory results Normal [facility] PHOSPHATE, INORGANICon 01-13 Phosphorous 3.4 mg/dL Normal 2.2-4.6 [facility] Comment on above: Performed By: #### I PB, CHM7, MGO #### [facility] (DEFAULT) [address] [place] [address] 02708 Phosphate [Mass/Vol] 3.4 mg/dL 2.2 - 4 .6 mg/dL [facility] CBC,PLATELETSon 01-12-2022 Hematocrit (Bld) [Volume fraction] 25.7 % Low 34.9-44.3 [facility] Comment on above: Performed By: #### X M #### [facility] (DEFAULT) [address] [place] [address] 73807 Hemoglobin (Bld) [Mass/Vol] 7.7 g/dL Low 11.4-15.2 [facility] Comment on above: Performed By: #### X M #### [facility] (DEFAULT) [address] [place] [address] 34603 MCV (RBC) [Entitic vol] 92.4 fL Normal 79.6-97.7 [facility] Comment on above: Performed By: #### X M #### [facility] (DEFAULT) [address] [address] Mean Cell Hgb 27.7 pg Normal 25.9-33.9 [facility] Comment on above: Performed By: #### X M #### [facility] (DEFAULT) [address] [place] [address] 84833 Mean Cell Hgb Conc 30.0 g/dL Low 31.4-35.9 [facility] Comment on above: Performed By: #### X M #### [facility] (DEFAULT) [address] [place] [address] 54659 Platelet mean volume (Bld) [Entitic vol] 10.4 fL Normal 8.5-12.2 [facility] Comment on above: Performed By: #### X M #### [facility] (DEFAULT) [address] [place] [address] 68468 Platelets (Bld) [#/Vol] 146 10*3/uL Low 150-393 [facility] Comment on above: Performed By: #### X M #### [facility] (DEFAULT) [address] [place] [address] 52540 RBC (Bld) [#/Vol] 2.78 10*6/uL Low 3.91-5.04 [facility] Comment on above: Performed By: #### X M #### [facility] (DEFAULT) [address] [place] [address] 30892 RBC Distribution 15.4 % High 10.8-14.9 [facility] Comment on above: Performed By: #### X M #### [facility] (DEFAULT) [address] [place] [address] 97050 WBC (Bld) [#/Vol] 10.39 10*3/uL Normal 3.99-11.19 [facility] Comment on above: Performed By: #### X M #### [facility] (DEFAULT) [address] [place] [address] 88208 Erythrocyte distribution width (RBC) [Ratio] 15.4 % High 10.8 - 14.9 % [facility] Hematocrit (Bld) [Volume fraction] 25.7 % Low 34.9 - 44.3 % [facility] Hemoglobin (Bld) [Mass/Vol] 7.7 g/dL Low 11.4 - 15.2 g/dL [facility] Interpretation and review of laboratory results Abnormal [facility] MCH (RBC) [Entitic mass] 27.7 pg 25.9 - 33.9 pg [facility] MCHC (RBC) [Mass/Vol] 30.0 g/dL Low 31.4 - 35.9 g/dL [facility] MCV (RBC) [Entitic vol] 92.4 fL 79.6 - 97.7 fL [facility] Platelet mean volume (Bld) [Entitic vol] 10.4 fL 8.5 - 12.2 fL [facility] Platelets (Bld) [#/Vol] 146 10*3/uL Low 150 - 393 K/uL [facility] RBC (Bld) [#/Vol] 2.78 10*6/uL Low [facility] WBC (Bld) [#/Vol] 10.39 10*3/uL 3.99 - 11 .19 K/uL [facility] CHEM 7 (LYTES,BUN,CREA,GLUC) on 01-12-2022 Anion gap [Moles/Vol] 10 mmol/L Normal 7-17 [facility] Comment on above: Performed By: #### L [id number] #### [facility] (DEFAULT) [address] [address] Chloride [Moles/Vol] 106 mmol/L Normal 98-108 [facility] Comment on above: Performed By: #### L [id number] #### [facility] (DEFAULT) [address] [address] CO2 [Moles/Vol] 32 mmol/L High 21-31 [facility] Comment on above: Performed By: #### L [id number] #### [facility] (DEFAULT) [address] [address] Creatinine [Mass/Vol] 0.55 mg/dL Normal 0.50-1.20 [facility] Comment on above: Performed By: #### L [id number] #### [facility] (DEFAULT) [address] [address] eGFR, CKD-EPI, Female >90 Normal >=60 [facility] Comment on above: Result Comment: Repo rted eGFR is based on the CKD-EPI 2020 equation using creatinine, age, and sex. Performed By: #### L [id number] #### [facility] (DEFAULT) [address] [address] Glucose [Mass/Vol] 124 mg/dL High 70-99 [facility] Comment on above: Performed By: #### L [id number] #### [facility] (DEFAULT) [address] [place] [address] 51125 Osmolality [Osmolality] 303 mosm/kg Normal 278-305 [facility] Comment on above: Performed By: #### L [id number] #### [facility] (DEFAULT) [address] [place] [address] 72955 Potassium [Moles/Vol] 4.1 mmol/L Normal 3.5-5.0 [facility] Comment on above: Performed By: #### L [id number] #### [facility] (DEFAULT) [address] [place] [address] 78891 Sodium [Moles/Vol] 144 mmol/L Normal 135-145 [facility] Comment on above: Performed By: #### L [id number] #### [facility] (DEFAULT) [address] [place] [address] 71766 Urea nitrogen [Mass/Vol] 16 mg/dL Normal 7-25 [facility] Comment on above: Performed By: #### L [id number] #### [facility] (DEFAULT) [address] [place] [address] 39501 Urea nitrogen/Creatinine [Mass ratio] 29 mg/mg Normal [facility] Comment on above: Performed By: #### L [id number] #### [facility] (DEFAULT) [address] [place] [address] 01117 Anion gap [Moles/Vol] 10 mmol/L 7 - 17 mmol/L [facility] Chloride [Moles/Vol] 106 mmol/L 98 - 10 8 mmol/L [facility] CO2 [Moles/Vol] 32 mmol/L High 21 - 31 mmol/L [facility] Creatinine [Mass/Vol] 0.55 mg/dL 0.50 - 1.20 mg/dL [facility] GFR/1.73 sq M.predicted CKD-EPI (S/P/Bld) [Vol rate/Area] >90 >=60 mL/min/1.73m 2 [facility] Glucose [Mass/Vol] 124 mg/dL High 70 - 99 mg/dL [facility] Interpretation and review of laboratory results Abnormal [facility] Osmolality Calc [Osmolality] 303 [facility] Potassium [Moles/Vol] 4.1 mmol/L 3.5 - 5.0 mmol/L [facility] Sodium [Moles/Vol] 144 mmol/L 135 - 145 mmol/L [facility] Urea nitrogen [Mass/Vol] 16 mg/dL 7 - 25 mg/dL [facility] Urea nitrogen/Creatinine [Mass ratio] 29 mg/mg [facility] CONTINUOUS CARDIAC MONITORIN G STRIPOrdered By: Unassigned Pacs on 01-12-2022 [facility] Work Phone: GLUCOSE POCon 01-12-2022 Glucose [Mass/Vol] 127 mg/dL High 70 - 99 mg/dL [facility] Interpretation and review of laboratory results Abnormal [facility] POC Sample Type CAPBL [facility] IONIZED CALCIUM, WHOLE BLOOD on 01-12-2022 ICA 4.58 mg/dL Low 4.60-5.30 [facility] Comment on above: Performed By: #### X M #### [facility] (DEFAULT) [address] [address] IONIZED CALCIUM, WHOLE BLOOD Ordered By: Kailee Barroso on 01-12-2022 Calcium.ionized (Bld) [Moles/Vol] 4.58 mg/dL Low 4.60 - 5.30 mg/dL [facility] Interpretation and review of laboratory results Abnormal [facility] MAGNESIUMon 01-12-2022 Magnesium [Mass/Vol] 1.7 mg/dL Normal 1.6-2.6 [facility] Comment on above: Performed By: #### L [id number] #### [facility] (DEFAULT) [address] [address] Magnesium [Mass/Vol] 1.7 mg/dL 1.6 - 2 .6 mg/dL [facility] No Panel Informationon 01-12 Interpretation and review of laboratory results Normal [facility] PHOSPHATE, INORGANICon 01-12 Phosphorous 2.2 mg/dL Normal 2.2-4.6 [facility] Comment on above: Performed By: #### L [id number] #### [facility] (DEFAULT) [address] [place] [address] 37610 Phosphate [Mass/Vol] 2.2 mg/dL 2.2 - 4 .6 mg/dL [facility] CBC,PLATELETSon 01-11-2022 Hematocrit (Bld) [Volume fraction] 26.5 % Low 34.9-44.3 [facility] Comment on above: Performed By: #### X M #### [facility] (DEFAULT) [address] [place] [address] 31013 Hemoglobin (Bld) [Mass/Vol] 8.1 g/dL Low 11.4-15.2 [facility] Comment on above: Performed By: #### X M #### [facility] (DEFAULT) [address] [place] [address] 70084 MCV (RBC) [Entitic vol] 90.4 fL Normal 79.6-97.7 [facility] Comment on above: Performed By: #### X M #### [facility] (DEFAULT) [address] [place] [address] 86075 Mean Cell Hgb 27.6 pg Normal 25.9-33.9 [facility] Comment on above: Performed By: #### X M #### [facility] (DEFAULT) [address] [place] [address] 61074 Mean Cell Hgb Conc 30.6 g/dL Low 31.4-35.9 [facility] Comment on above: Performed By: #### X M #### [facility] (DEFAULT) [address] [place] [address] 44355 Platelet mean volume (Bld) [Entitic vol] 10.6 fL Normal 8.5-12.2 [facility] Comment on above: Performed By: #### X M #### [facility] (DEFAULT) [address] [place] [address] 77901 Platelets (Bld) [#/Vol] 209 10*3/uL Normal 150-393 [facility] Comment on above: Performed By: #### X M #### [facility] (DEFAULT) [address] [place] [address] 16293 RBC (Bld) [#/Vol] 2.93 10*6/uL Low 3.91-5.04 [facility] Comment on above: Performed By: #### X M #### [facility] (DEFAULT) [address] [place] [address] 16043 RBC Distribution 15.8 % High 10.8-14.9 [facility] Comment on above: Performed By: #### X M #### [facility] (DEFAULT) [address] [place] [address] 91110 WBC (Bld) [#/Vol] 11.52 10*3/uL High 3.99-11.19 [facility] Comment on above: Performed By: #### X M #### [facility] (DEFAULT) [address] [place] [address] 58332 Erythrocyte distribution width (RBC) [Ratio] 15.8 % High 10.8 - 14.9 % [facility] Hematocrit (Bld) [Volume fraction] 26.5 % Low 34.9 - 44.3 % [facility] Hemoglobin (Bld) [Mass/Vol] 8.1 g/dL Low 11.4 - 15.2 g/dL [facility] Interpretation and review of laboratory results Abnormal [facility] MCH (RBC) [Entitic mass] 27.6 pg 25.9 - 33.9 pg [facility] MCHC (RBC) [Mass/Vol] 30.6 g/dL Low 31.4 - 35.9 g/dL [facility] MCV (RBC) [Entitic vol] 90.4 fL 79.6 - 97.7 fL [facility] Platelet mean volume (Bld) [Entitic vol] 10.6 fL 8.5 - 12.2 fL [facility] Platelets (Bld) [#/Vol] 209 10*3/uL 150 - 393 K/uL [facility] RBC (Bld) [#/Vol] 2.93 10*6/uL Low [facility] WBC (Bld) [#/Vol] 11.52 10*3/uL High 3.99 - 11 .19 K/uL [facility] CHEM 7 (LYTES,BUN,CREA,GLUC) on 01-11-2022 Anion gap [Moles/Vol] 10 mmol/L Normal 7-17 [facility] Comment on above: Performed By: ###Hoda Salas AS5L #### [facility] (DEFAULT) [address] [address] Chloride [Moles/Vol] 106 mmol/L Normal 98-108 [facility] Comment on above: Performed By: #### Maritza AS5L #### [facility] (DEFAULT) [address] [address] CO2 [Moles/Vol] 31 mmol/L Normal 21-31 [facility] Comment on above: Performed By: #### Maritza AS5L #### [facility] (DEFAULT) [address] [address] Creatinine [Mass/Vol] 0.64 mg/dL Normal 0.50-1.20 [facility] Comment on above: Performed By: #### Maritza AS5L #### [facility] (DEFAULT) [address] [address] eGFR, CKD-EPI, Female >90 Normal >=60 [facility] Comment on above: Result Comment: Repo rted eGFR is based on the CKD-EPI 2020 equation using creatinine, age, and sex. Performed By: #### G AS5L #### [facility] (DEFAULT) [address] [place] [address] Glucose [Mass/Vol] 103 mg/dL High 70-99 [facility] Comment on above: Performed By: #### G AS5L #### [facility] (DEFAULT) [address] [place] [address] Osmolality [Osmolality] 297 mosm/kg Normal 278-305 [facility] Comment on above: Performed By: #### G AS5L #### [facility] (DEFAULT) [address] [place] [address]41 Potassium [Moles/Vol] 4.5 mmol/L Normal 3.5-5.0 [facility] Comment on above: Performed By: #### G AS5L #### [facility] (DEFAULT) [address] [place] [address] 02550 Sodium [Moles/Vol] 142 mmol/L Normal 135-145 [facility] Comment on above: Performed By: #### G AS5L #### [facility] (DEFAULT) [address] [place] [address] [id number] Urea nitrogen [Mass/Vol] 10 mg/dL Normal 7-25 [facility] Comment on above: Performed By: #### G AS5L #### [facility] (DEFAULT) [address] [place] [address] 22689 Urea nitrogen/Creatinine [Mass ratio] 16 mg/mg Normal [facility] Comment on above: Performed By: #### G AS5L #### [facility] (DEFAULT) [address] [place] [address] 64962 Anion gap [Moles/Vol] 10 mmol/L 7 - 17 mmol/L [facility] Chloride [Moles/Vol] 106 mmol/L 98 - 10 8 mmol/L [facility] CO2 [Moles/Vol] 31 mmol/L 21 - 31 mmol/L [facility] Creatinine [Mass/Vol] 0.64 mg/dL 0.50 - 1.20 mg/dL [facility] GFR/1.73 sq M.predicted CKD-EPI (S/P/Bld) [Vol rate/Area] >90 >=60 mL/min/1.73m 2 [facility] Glucose [Mass/Vol] 103 mg/dL High 70 - 99 mg/dL [facility] Interpretation and review of laboratory results Abnormal [facility] Osmolality Calc [Osmolality] 297 [facility] Potassium [Moles/Vol] 4.5 mmol/L 3.5 - 5.0 mmol/L [facility] Sodium [Moles/Vol] 142 mmol/L 135 - 145 mmol/L [facility] Urea nitrogen [Mass/Vol] 10 mg/dL 7 - 25 mg/dL [facility] Urea nitrogen/Creatinine [Mass ratio] 16 mg/mg [facility] GLUCOSE POCon 01-11-2022 Glucose [Mass/Vol] 118 mg/dL High 70 - 99 mg/dL [facility] Interpretation and review of laboratory results Abnormal [facility] POC Sample Type CAPBL [facility] Glucose [Mass/Vol] 118 mg/dL High 70 - 99 mg/dL [facility] Interpretation and review of laboratory results Abnormal [facility] POC [facility] Glucose [Mass/Vol] 106 mg/dL High 70 - 99 mg/dL [facility] Interpretation and review of laboratory results Abnormal [facility] POC Sample Type [facility] Glucose [Mass/Vol] 105 mg/dL High 70 - 99 mg/dL [facility] Interpretation and review of laboratory results Abnormal [facility] POC Sample Type [facility] IONIZED CALCIUM, WHOLE BLOOD on 01-11-2022 ICA 4.80 mg/dL Normal 4.60-5.30 [facility] Comment on above: Performed By: #### I ANTELMO MONTESINOS, MGO #### [facility] (DEFAULT) [address] [place] [address] [phone] IONIZED CALCIUM, WHOLE BLOOD Ordered By: Domenico Tsang on 01-11-2022 Calcium.ionized (Bld) [Moles/Vol] 4.80 mg/dL 4.60 - 5.30 mg/dL [facility] Interpretation and review of laboratory results Normal [facility] MAGNESIUMon 01-11-2022 Magnesium [Mass/Vol] 2.1 mg/dL Normal 1.6-2.6 [facility] Comment on above: Performed By: #### G AS5L #### [facility] (DEFAULT) [address] [place] [address] 06463 Magnesium [Mass/Vol] 2.1 mg/dL 1.6 - 2 .6 mg/dL [facility] No Panel Informationon 01-11 Interpretation and review of laboratory results Normal [facility] PHOSPHATE, INORGANICon 01-11 Phosphorous 3.1 mg/dL Normal 2.2-4.6 [facility] Comment on above: Performed By: #### G AS5L #### [facility] (DEFAULT) [address] [place] [address] 73434 Phosphate [Mass/Vol] 3.1 mg/dL 2.2 - 4 .6 mg/dL [facility] CBC,PLATELETSon 01-10-2022 Hematocrit (Bld) [Volume fraction] 25.3 % Low 34.9-44.3 [facility] Comment on above: Performed By: #### I PBHARJEETM7, MGO #### [facility] (DEFAULT) [address] [place] [address] 42645 Hemoglobin (Bld) [Mass/Vol] 8.1 g/dL Low 11.4-15.2 [facility] Comment on above: Performed By: #### I PB, CHM7, MGO #### [facility] (DEFAULT) [address] [place] [address] 82959 MCV (RBC) [Entitic vol] 86.6 fL Normal 79.6-97.7 [facility] Comment on above: Performed By: #### I PB, CHM7, MGO #### [facility] (DEFAULT) [address] [place] [address] 78437 Mean Cell Hgb 27.7 pg Normal 25.9-33.9 [facility] Comment on above: Performed By: #### I PB, CHM7, MGO #### [facility] (DEFAULT) [address] [place] [address] 94106 Mean Cell Hgb Conc 32.0 g/dL Normal 31.4-35.9 [facility] Comment on above: Performed By: #### I PB, CHM7, MGO #### [facility] (DEFAULT) [address] [place] [address] 27521 Platelet mean volume (Bld) [Entitic vol] 10.5 fL Normal 8.5-12.2 [facility] Comment on above: Performed By: #### I PB, CHM7, MGO #### [facility] (DEFAULT) [address] [place] [address] 90638 Platelets (Bld) [#/Vol] 196 10*3/uL Normal 150-393 [facility] Comment on above: Performed By: #### I PB, CHM7, MGO #### [facility] (DEFAULT) [address] [place] [address] 91050 RBC (Bld) [#/Vol] 2.92 10*6/uL Low 3.91-5.04 [facility] Comment on above: Performed By: #### I PB, CHM7, MGO #### [facility] (DEFAULT) [address] [place] [address] 39158 RBC Distribution 16.1 % High 10.8-14.9 [facility] Comment on above: Performed By: #### I ANTELMO MONTESINOS, O #### [facility] (DEFAULT) [address] [place] [address] WBC (Bld) [#/Vol] 12.90 10*3/uL High 3.99-11.19 [facility] Comment on above: Performed By: #### I ANTELMO MONTESINOS, MGO #### [facility] (DEFAULT) [address] [place] [address] Erythrocyte distribution width (RBC) [Ratio] 16.1 % High 10.8 - 14.9 % [facility] Hematocrit (Bld) [Volume fraction] 25.3 % Low 34.9 - 44.3 % [facility] Hemoglobin (Bld) [Mass/Vol] 8.1 g/dL Low 11.4 - 15.2 g/dL [facility] Interpretation and review of laboratory results Abnormal [facility] MCH (RBC) [Entitic mass] 27.7 pg 25.9 - 33.9 pg [facility] MCHC (RBC) [Mass/Vol] 32.0 g/dL 31.4 - 35.9 g/dL [facility] MCV (RBC) [Entitic vol] 86.6 fL 79.6 - 97.7 fL [facility] Platelet mean volume (Bld) [Entitic vol] 10.5 fL 8.5 - 12.2 fL [facility] Platelets (Bld) [#/Vol] 196 10*3/uL 150 - 393 K/uL [facility] RBC (Bld) [#/Vol] 2.92 10*6/uL Low [facility] WBC (Bld) [#/Vol] 12.90 10*3/uL High 3.99 - 11 .19 K/uL [facility] CHEM 7 (LYTES,BUN,CREA,GLUC) on 01-10-2022 Anion gap [Moles/Vol] 12 mmol/L Normal 7-17 [facility] Comment on above: Performed By: #### I PB, CHM7, MGO #### [facility] (DEFAULT) [address] [place] [address] 53977 Chloride [Moles/Vol] 107 mmol/L Normal 98-108 [facility] Comment on above: Performed By: #### I PB, CHM7, MGO #### [facility] (DEFAULT) [address] [place] [address] 22281 CO2 [Moles/Vol] 28 mmol/L Normal 21-31 [facility] Comment on above: Performed By: #### I PB, CHM7, MGO #### [facility] (DEFAULT) [address] [place] [address] 52952 Creatinine [Mass/Vol] 0.57 mg/dL Normal 0.50-1.20 [facility] Comment on above: Performed By: #### I PB, CHM7, MGO #### [facility] (DEFAULT) [address] [place] [address] 18473 eGFR, CKD-EPI, Female >90 Normal >=60 [facility] Comment on above: Result Comment: Repo rted eGFR is based on the CKD-EPI 1 equation using creatinine, age, and sex. Performed By: #### I PB, CHM7, MGO #### [facility] (DEFAULT) [address] [place] [address] 82581 Glucose [Mass/Vol] 102 mg/dL High 70-99 [facility] Comment on above: Performed By: #### I PB, CHM7, MGO #### [facility] (DEFAULT) [address] [place] [address] 77326 Osmolality [Osmolality] 298 mosm/kg Normal 278-305 [facility] Comment on above: Performed By: #### I PB, CHM7, MGO #### [facility] (DEFAULT) [address] [place] [address] 96826 Potassium [Moles/Vol] 4.2 mmol/L Normal 3.5-5.0 [facility] Comment on above: Performed By: #### I YAMEL, HARJEETMDany, MGO #### [facility] (DEFAULT) [address] [place] [address] Sodium [Moles/Vol] 143 mmol/L Normal 135-145 [facility] Comment on above: Performed By: #### I YAMEL, HARJEETMDany, MGO #### [facility] (DEFAULT) [address] [place] [address] Urea nitrogen [Mass/Vol] 11 mg/dL Normal 7-25 [facility] Comment on above: Performed By: #### Derick MONTESINOS, CHM7, MGO #### [facility] (DEFAULT) [address] [place] [address] Urea nitrogen/Creatinine [Mass ratio] 19 mg/mg Normal [facility] Comment on above: Performed By: #### Derick MONTESINOS, HARJEETM7, MGO #### [facility] (DEFAULT) [address] [place] [address] Anion gap [Moles/Vol] 12 mmol/L 7 - 17 mmol/L [facility] Chloride [Moles/Vol] 107 mmol/L 98 - 10 8 mmol/L [facility] CO2 [Moles/Vol] 28 mmol/L 21 - 31 mmol/L [facility] Creatinine [Mass/Vol] 0.57 mg/dL 0.50 - 1.20 mg/dL [facility] GFR/1.73 sq M.predicted CKD-EPI (S/P/Bld) [Vol rate/Area] >90 >=60 mL/min/1.73m 2 [facility] Glucose [Mass/Vol] 102 mg/dL High 70 - 99 mg/dL [facility] Interpretation and review of laboratory results Abnormal [facility] Osmolality Calc [Osmolality] 298 [facility] Potassium [Moles/Vol] 4.2 mmol/L 3.5 - 5.0 mmol/L [facility] Sodium [Moles/Vol] 143 mmol/L 135 - 145 mmol/L [facility] Urea nitrogen [Mass/Vol] 11 mg/dL 7 - 25 mg/dL [facility] Urea nitrogen/Creatinine [Mass ratio] 19 mg/mg [facility] EXTRA MICROon 01-10-2022 [facility] GLUCOSE POCon 01-10-2022 Glucose [Mass/Vol] 85 mg/dL 70 - 99 mg/dL [facility] POC Sample Type CAPBL [facility] Glucose [Mass/Vol] 86 mg/dL 70 - 99 mg/dL [facility] POC Sample Type CAPBL [facility] Glucose [Mass/Vol] 102 mg/dL High 70 - 99 mg/dL [facility] Interpretation and review of laboratory results Abnormal [facility] POC Sample Type CAPBL [facility] IONIZED CALCIUM, WHOLE BLOOD on 01-10-2022 ICA 4.48 mg/dL Low 4.60-5.30 [facility] Comment on above: Performed By: #### I CA ####[facility] (DEFAULT)[address] [place] [address] MAGNESIUMon 01-10-2022 Magnesium [Mass/Vol] 2.0 mg/dL Normal 1.6-2.6 [facility] Comment on above: Performed By: #### I PB, CHM7, MGO #### [facility] (DEFAULT) [address] [place] [address] Magnesium [Mass/Vol] 2.0 mg/dL 1.6 - 2 .6 mg/dL [facility] No Panel Informationon 01-10 [facility] Interpretation and review of laboratory results Normal [facility] PHOSPHATE, INORGANICon 01-10 Phosphorous 2.8 mg/dL Normal 2.2-4.6 [facility] Comment on above: Performed By: #### I PB, CHM7, MGO #### [facility] (DEFAULT) [address] [place] [address] Phosphate [Mass/Vol] 2.8 mg/dL 2.2 - 4 .6 mg/dL [facility] URINE CULTUREOrdered By: Wen Vanegas on 01-10-2022 Bacteria identified Cx Nom (Unsp spec) No Growth [facility] XR ABDOMEN 1 VIEWon 01-11-20 XR ABDOMEN 1 VIEW EXAM: XR ABDOMEN 1 VIEW, 01/10/2022 16:04 PM COMPARISON: January 09, 2022 CLINICAL INDICATIONS: Assess NG tube FINDINGS: Limited field of view radiograph of the upper abdomen was obtained to evaluate enteric tube positioning. The enteric tube is located with its tip in the proximal small bowel near the ligament of Treitz. Bowel gas pattern is non-obstructive. No gross free air. IMPRESSION: Postpyloric enteric tube position. Normal [facility] XR Abdomen Single viewon RADIOLOGY RADIOLOGY [facility] Radiology Study observation (narrative) [facility] XR Abdomen Single viewOrdere d By: Radha Taveras on 01-10-2022 [facility] Work Phone: ARTERIAL BLOOD GAS PLUS LACT ATEon 01-09-2022 Base Excess 4.8 mmol/L High -3.0-3.0 [facility] Comment on above: Performed By: #### G AS5L #### [facility] (DEFAULT) [address] [place] [address] 32356 HCO3 (Bld) [Moles/Vol] 28 mmol/L Normal 22-28 [facility] Comment on above: Performed By: #### G AS5L #### [facility] (DEFAULT) [address] [place] [address] 03066 Lactate, Whole Blood 0.7 mmol/L Normal 0.5-1.6 [facility] Comment on above: Performed By: #### G AS5L #### [facility] (DEFAULT) [address] [place] [address] 31833 pCO2 38 mm Hg Normal 32-48 [facility] Comment on above: Performed By: #### G AS5L #### [facility] (DEFAULT) [address] [place] [address] 07253 pH (Bld) 7.48 [pH] High 7.35-7.45 [facility] Comment on above: Performed By: #### G AS5L #### [facility] (DEFAULT) [address] [place] [address] 83240 pO2 139 mm Hg High 83-108 [facility] Comment on above: Performed By: #### G AS5L #### [facility] (DEFAULT) [address] [place] [address] 00690 sO2 99 % High 94-98 [facility] Comment on above: Performed By: #### G AS5L #### [facility] (DEFAULT) [address] [place] [address] 21172 Specimen type Nom (Spec) Arterial Normal [facility] Comment on above: Performed By: #### G AS5L #### [facility] (DEFAULT) [address] [place] [address] 83384 BLOOD CULTUREon 01-09-2022 Bacteria identified Cx Nom (Unsp spec) NO GROWTH DAY 5 OF 5 Normal [facility] Comment on above: Order Comment: 2 Bot tles (1 Set - consists of 1 Aerobic bottle and 1 Anaerobic bottle) -1st Peripheral DrawFor syringe method draw:If able to obtain adequate sample (20 ml) inoculate anaerobic bottle firstIf inadequate sample obtained (less than 20 ml) inoculate aerobic bottle firstFor vacutainer method draw: Fill aerobic bottle first, then anaerobic Performed By: #### X M #### [facility] (DEFAULT) [address] [place] [address] 76039 Bacteria identified Cx Nom (Unsp spec) NO GROWTH DAY 5 OF 5 Normal [facility] Comment on above: Order Comment: 2 Bot tles (1 Set - consists of 1 Aerobic bottle and 1 Anaerobic bottle) -1st Peripheral DrawFor syringe method draw:If able to obtain adequate sample (20 ml) inoculate anaerobic bottle firstIf inadequate sample obtained (less than 20 ml) inoculate aerobic bottle firstFor vacutainer method draw: Fill aerobic bottle first, then anaerobic Performed By: #### X M #### [facility] (DEFAULT) [address] [place] [address] 76569 CBC,PLATELETSon 01-09-2021 Hematocrit (Bld) [Volume fraction] 27.5 % Low 34.9-44.3 [facility] Comment on above: Performed By: #### L ABSARS1 #### [facility] (DEFAULT) [address] [place] [address] 89166 Hemoglobin (Bld) [Mass/Vol] 9.1 g/dL Low 11.4-15.2 [facility] Comment on above: Performed By: #### L [id number] #### [facility] (DEFAULT) [address] [place] [address] 55032 MCV (RBC) [Entitic vol] 83.8 fL Normal 79.6-97.7 [facility] Comment on above: Performed By: #### L [id number] #### [facility] (DEFAULT) [address] [place] [address] 02247 Mean Cell Hgb 27.7 pg Normal 25.9-33.9 [facility] Comment on above: Performed By: #### L ABSARS1 #### [facility] (DEFAULT) [address] [place] [address] 61611 Mean Cell Hgb Conc 33.1 g/dL Normal 31.4-35.9 [facility] Comment on above: Performed By: #### L ABSARS1 #### [facility] (DEFAULT) [address] [place] [address] 68963 Platelet mean volume (Bld) [Entitic vol] 10.1 fL Normal 8.5-12.2 [facility] Comment on above: Performed By: #### L ABSARS1 #### [facility] (DEFAULT) [address] [place] [address] 94814 Platelets (Bld) [#/Vol] 208 10*3/uL Normal 150-393 [facility] Comment on above: Performed By: #### L ABSARS1 #### [facility] (DEFAULT) [address] [place] [address] 33540 RBC (Bld) [#/Vol] 3.28 10*6/uL Low 3.91-5.04 [facility] Comment on above: Performed By: #### L [id number] #### [facility] (DEFAULT) [address] [place] [address] 44785 RBC Distribution 15.9 % High 10.8-14.9 [facility] Comment on above: Performed By: #### L [id number] #### [facility] (DEFAULT) [address] [place] [address] 51836 WBC (Bld) [#/Vol] 12.22 10*3/uL High 3.99-11.19 [facility] Comment on above: Performed By: #### L [id number] #### [facility] (DEFAULT) [address] [place] [address] 54023 CHEM 7 (LYTES,BUN,CREA,GLUC) on 01-09-2022 Anion gap [Moles/Vol] 15 mmol/L Normal 7-17 [facility] Comment on above: Performed By: #### C HM7, PROCAL, IPB, CKB, MGO ####[facility] (DEFAULT)[address] [place] [address] 39469 Chloride [Moles/Vol] 104 mmol/L Normal 98-108 [facility] Comment on above: Performed By: #### C HM7, PROCAL, IPB, CKB, MGO ####[facility] (DEFAULT)[address] [place] [address] CO2 [Moles/Vol] 26 mmol/L Normal 21-31 [facility] Comment on above: Performed By: #### C HM7, PROCAL, IPB, CKB, MGO ####[facility] (DEFAULT)[address] [place] [address] Creatinine [Mass/Vol] 0.73 mg/dL Normal 0.50-1.20 [facility] Comment on above: Performed By: #### C HM7, PROCAL, IPB, CKB, MGO ####[facility] (DEFAULT)[address] [facility] [place] [address] GFR/1.73 sq M.predicted among non-blacks MDRD (S/P/Bld) [Vol rate/Area] 90 mL/min/{1.73_m2} Normal >=60 [facility] Comment on above: Result Comment: Repo rted eGFR is based on the CKD-EPI 2020 equation using creatinine, age, and sex. Performed By: #### C HM7, PROCAL, IPB, CKB, MGO ####[facility] (DEFAULT)[address] [facility] [place] [address] Glucose [Mass/Vol] 85 mg/dL Normal 70-99 [facility] Comment on above: Performed By: #### C HM7, PROCAL, IPB, CKB, MGO ####[facility] (DEFAULT)[address] [place] [address] Osmolality [Osmolality] 295 mosm/kg Normal 278-305 [facility] Comment on above: Performed By: #### C HM7, PROCAL, IPB, CKB, MGO ####[facility] (DEFAULT)[address] [place] [address] Potassium [Moles/Vol] 3.7 mmol/L Normal 3.5-5.0 [facility] Comment on above: Performed By: #### C HM7, PROCAL, IPB, CKB, MGO ####[facility] (DEFAULT)[address] [facility] [place] [address] Sodium [Moles/Vol] 141 mmol/L Normal 135-145 [facility] Comment on above: Performed By: #### C HM7, PROCAL, IPB, CKB, MGO ####[facility] (DEFAULT)[address] [facility] [place] [address] Urea nitrogen [Mass/Vol] 17 mg/dL Normal 7-25 [facility] Comment on above: Performed By: #### C HM7, PROCAL, IPB, CKB, MGO ####[facility] (DEFAULT)[address] [place] [address] Urea nitrogen/Creatinine [Mass ratio] 23 mg/mg Normal [facility] Comment on above: Performed By: #### C HM7, PROCAL, IPB, CKB, MGO ####[facility] (DEFAULT)[address] [place] [address] [facility] CK [Catalytic activity/Vol] 126 U/L 30 - 184 U/L [facility] Interpretation and review of laboratory results Normal [facility] CK [Catalytic activity/Vol] 126 U/L Normal 30-184 [facility] Comment on above: Performed By: #### C HM7, PROCAL, IPB, CKB, MGO ####[facility] (DEFAULT)[address] [facility] [place] [address] CT HEAD WITHOUT CONTRASTon 0 01-09-2022 CT HEAD WITHOUT CONTRAST EXAM: CT HEAD WITHOUT CONTRAST, 01/08/2022 8:08 PM COMPARISON: Same day CT head without contrast CLINICAL INDICATIONS: 66 years Female postop TECHNIQUE: A series of transaxial computerized tomographic images are obtained from base of skull to vertex without intravenous contrast. Axial whole-head and thin section posterior fossa slices are provided. Reformats: Sagittal and coronal. FINDINGS: Interval postsurgical changes from a right craniotomy for evacuation of an acute subdural hematoma over the right cerebral convexity with placement of an epidural drain. Associated scalp swelling and subcutaneous gas are noted. Residual subdural hemorrhage is identified along the right cerebral convexity and more prominently on the right inferior frontal convexity measuring up to 10 mm in maximal thickness. Similar volume of residual. Falcine subdural hemorrhage. Expected postoperative pneumocephalus. Significantly improved mass effect. Interval improvement in leftward midline shift, which now measures approximately 0.6 cm (series 7 image 45), previously 1.1 cm. Interval improvement in previously noted subfalcine herniation. Right uncal and transtentorial herniation are also improved. Previously described area of hypodensity in the medial right occipital lobe is again noted but decreased in conspicuity, some loss of wood-white differentiation is again appreciated at this location. Areas of edema are also noted in the right cerebral hemisphere predominantly subcortical, not significantly changed. Similar appearance of a well-defined zone of low-attenuation in the left parietal lobe which may represent chronic infarct. Elsewhere, the wood-white interface appears grossly preserved. Improved mass effect upon the ventricular system with some reexpansion of the right lateral ventricle. Left lateral ventricle stable to slightly smaller in size. 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 Scattered opacification of the ethmoid air cells and sphenoid sinuses. Status post bilateral cataract surgery. Atherosclerotic calcifications of the bilateral intracranial ICAs. Partially visualized endotracheal and orogastric tubes. IMPRESSION: 1. Postoperative changes of interval right craniectomy and right subdural hematoma evacuation with placement of an epidural drain. Residual subdural hemorrhage is present predominantly along the inferior frontal lobe and falx. Mass effect has significantly improved in comparison to prior study. 2. Previously noted area of hypoattenuation in the right occipital lobe appears less conspicuous and may again relate to a subacute infarct. Decreased conspicuity may be due to improved edema following decompression. Areas of nonspecific edema in the right cerebral hemisphere and more chronic appearing infarct in the left parietal lobe are similar to prior study. 3. Decreased mass effect upon the ventricular system. Left lateral ventricle stable to slightly smaller compared with the preoperative exam. I personally viewed and interpreted these images and I have reviewed and approved this report. Normal [facility] CT Head WO contraston 2021 [facility] contrastOrdered B y: Kacy Cedeno on 01-09-2022 [facility] Work Phone: Cardiac echo study Procedure Ordered By: Camilo Saldaña on 01-09-2022 Ao peak catie 1.48 m/s [facility] Work Phone: Ao VTI 33.79 cm [facility] Work Phone: Ascending aorta 2.27 cm [facility] Work Phone: AV LVOT peak gradient 5 mmHg [facility] Work Phone: AV mean gradient 5 [facility]: AV peak gradient 9 mmHG [facility] Work Phone: AV valve area 1.84 cm2 [facility] Work Phone: AV Velocity Ratio 0.73 [facility] Work Phone: IRVIN (continuity Vmax) 2.20 cm2 [facility] Work Phone: IRVIN (continuity VTI) 1.84 cm2 [facility] Work Phone: Avg e' pk catie 0.10 m/s [facility] Work Phone: Avg E/e' ratio 12.77 [facility] Work Phone: BP EF 59 % [facility] Work Phone: DI (Vmax) 0.73 [facility] Work Phone: DI (VTI) 0.61 m/2 [facility] Work Phone: E wave decelartion time 132.60 msec [facility] Work Phone: e' lateral pk catie 0.1072 m/s [facility] Work Phone: e' lateral pk catie 0.11 m/s [facility] Work Phone: e' septal pk catie 0.0901 m/s [facility] Work Phone: e' septal pk catie 0.09 m/s [facility] Work Phone: E/e' lateral ratio 11.66 [facility] Work Phone: E/e' septal ratio 13.87 [facility] Work Phone: EF SP 2CH 56 [facility] Work Phone: EF SP 4CH 59 [facility] Work Phone: FS 28 % 28 - 44 % [facility] Work Phone: IVC ostium 1.53 cm [facility] Work Phone: IVS 0.82 cm [facility] Work Phone: LA AREA 2CH 13.89 cm2 [facility] Work Phone: LA area 4CH 11.17 cm2 [facility] Work Phone: LA ESV BP (MOD) 32 mL [facility] Work Phone: LA ESV SP 2CH (MOD) 41 mL [facility] Work Phone: LA ESV SP 4CH (MOD) 22 mL [facility] Work Phone: LV EDV BP 80 mL [facility] Work Phone: LV EDV SP 2CH 77 mL [facility] Work Phone: LV EDV SP 4CH 75 mL [facility] Work Phone: LV ESV BP 33 mL [facility] Work Phone: LV ESV SP 2CH 34 mL [facility] Work Phone: LV ESV SP 4CH 31 mL [facility] Work Phone: LV mass 146.19 g [facility] Work Phone: LV RWT 0.37 [facility] Work Phone: LV stroke volume BP (ml) 47 mL [facility] Work Phone: LVIDD 4.92 cm [facility] Work Phone: LVIDS 3.55 cm [facility] Work Phone: LVOT area 3.02 cm2 [facility] Work Phone: LVOT diameter 1.96 cm [facility] Work Phone: LVOT peak catie 1.08 m/s [facility] Work Phone: LVOT peak VTI 20.67 cm [facility] Work Phone: LVOT stroke volume 62 cm3 [facility] Work Phone: Mr max catie 5.15 m/s [facility] Work Phone: MR VTI 148.31 cm [facility] Work Phone: MV pk E catie 1.25 m/s [facility] Work Phone: MV stenosis pressure 1/2 time 38.46 ms [facility] Work Phone: MV valve area p 1/2 method 5.72 cm2 [facility] Work Phone: [facility] AV VTI RATIO PRE STRESS 0.61 [facility] Work Phone: [facility] ECHO MR PEAK GRADIENT 106.16 mmHg [facility] Work Phone: [facility]SU RVOT VTI RATIO 0.95 [facility] Work Phone: PV mean gradient 3 mmHg [facility] Work Phone: PV peak gradient 5 mmHg [facility] Work Phone: PV PK CATIE 1.12 m/s [facility] Work Phone: PV VTI 19.49 cm2 [facility] Work Phone: PW 0.91 cm [facility] Work Phone: Right atrium volume 4 chamber method of disks 31 mL [facility] Work Phone: RV basal diam 3.66 cm [facility] Work Phone: RV long diam 8.58 cm [facility] Work Phone: RV mid diam 2.00 cm [facility] Work Phone: RV S' 12.66 cm/s [facility] Work Phone: RVOT peak gradient 5 [facility] Work Phone: RVOT peak catie 1.12 m/s [facility] Work Phone: RVOT peak VTI 18.59 cm [facility] Work Phone: Sinus 3.07 cm [facility] Work Phone: Stroke Volume 62 cm/mL [facility] Work Phone: TAPSE 1.70 cm [facility] Work Phone: TR pk grad 30 mmHg [facility] Work Phone: TR pk catie 2.75 m/s [facility] Work Phone: [facility] Work Phone: Cardiac echo study Procedure on 01-09-2022 [facility] Radiology Study observation (narrative) [facility] DRUGS OF ABUSE SCREEN 10, UR INEon 01-09-2022 Amphetamine/Methampheta mine Negative Normal Cutoff: 500 ng/mL [facility] Comment on above: Order Comment: For m edical purposes only. Positive results are unconfirmed unless otherwise noted. Performed By: #### I ANTELMO MONTESINOS, MGO #### [facility] (DEFAULT) [address] [place] [address] Barbiturates Negative Normal Cutoff: 200 ng/mL [facility] Comment on above: Order Comment: For m edical purposes only. Positive results are unconfirmed unless otherwise noted. Performed By: #### I HARJEET MONTESINOSM7, MGO #### [facility] (DEFAULT) [address] [address] Benzodiazepines Positive Abnormal Cutoff: 200 ng/mL [facility] Comment on above: Order Comment: For m edical purposes only. Positive results are unconfirmed unless otherwise noted. Performed By: #### I PB CHM7, MGO #### [facility] (DEFAULT) [address] [address] Buprenorphine Negative Normal Cutoff: 5 ng/mL [facility] Comment on above: Order Comment: For m edical purposes only. Positive results are unconfirmed unless otherwise noted. Performed By: #### I PB, CHM7, MGO #### [facility] (DEFAULT) [address] [address] Cannabinoids Screen Ql (U) Negative Normal Cutoff: 50 ng/mL [facility] Comment on above: Order Comment: For m edical purposes only. Positive results are unconfirmed unless otherwise noted. Performed By: #### I PB, CHM7, MGO #### [facility] (DEFAULT) [address] [address] Cocaine Negative Normal Cutoff: 150 ng/mL [facility] Comment on above: Order Comment: For edical purposes only. Positive results are unconfirmed unless otherwise noted. Performed By: #### I PB, CHM7, MGO #### [facility] (DEFAULT) [address] [address] Fentanyl Positive Abnormal Cutoff: 1 ng/mL [facility] Comment on above: Order Comment: For edical purposes only. Positive results are unconfirmed unless otherwise noted. Performed By: #### I PB, CHM7, MGO #### [facility] (DEFAULT) [address] [address] Methadone Negative Normal Cutoff: 300 ng/mL [facility] Comment on above: Order Comment: For edical purposes only. Positive results are unconfirmed unless otherwise noted. Performed By: #### I PB, CHM7, MGO #### [facility] (DEFAULT) [address] [address] Opiates Positive Abnormal Cutoff: 300 ng/mL [facility] Comment on above: Order Comment: For edical purposes only. Positive results are unconfirmed unless otherwise noted. Performed By: #### I PB, CHM7, MGO #### [facility] (DEFAULT) [address] [address] Oxycodone Negative Normal Cutoff: 100 ng/mL [facility] Comment on above: Order Comment: For m edical purposes only. Positive results are unconfirmed unless otherwise noted. Performed By: #### I PB, CHM7, MGO #### [facility] (DEFAULT) [address] [place] [address] ECHOCARDIOGRAMon 01-09-2022 Echocardiography Normal left ventricu lar size and systolic function. EF 60%. Normal right ventricular size and function. No significant valvular disease identified. Facility [facility] Patient Information Patient Name Luiza May Legal Sex Female Indication for Exam Priority: Routine Dx: SDH (subdural hematoma) [S06.5X9A (ICD-10-CM)] Order Question Reason for Exam stroke Interpretation Summary Normal left ventricular size and systolic function. EF 60%. Normal right ventricular size and function. No significant valvular disease identified. Findings Left Ventricle Chamber size is normal. Normal wall thickness. Normal global wall motion. Regional wall motion is normal. Ejection fraction is normal (55 - 60%). Diastolic function could not be determined. Right Ventricle Chamber size is normal. Normal wall thickness. Segmental wall motion is normal. Systolic function is normal. Left Atrium Chamber size is normal. Right Atrium Chamber size is normal. Septum The atrial septum is normal. Mitral Valve Normal appearing leaflets. Leaflet mobility is normal. Mild regurgitation. No valve stenosis. Aortic Valve Trileaflet valve. Leaflet mobility is normal. No regurgitation. No stenosis. Tricuspid Valve Normal leaflets. Leaflet mobility is normal. Trace regurgitation. No stenosis. Pulmonic Valve Normal structure. No regurgitation. No stenosis. Aorta No dilation to extent seen. Pericardium Appears normal. No pericardial effusion. Reading Providers Reading Role Read Date Camilo Saldaña MD Echo [place] 01/09/2022 Left Heart Measurements LV - Systole LVIDD 4.92 cm IVS 0.82 cm LVIDS 3.55 cm PW 0.91 cm LV RWT 0.37 LV EDV BP 80 mL LV ESV BP 33 mL BP EF 59 % LV stroke volume BP (ml) 47 mL LV - Diastole MV pk E catie 1.25 m/s e' septal pk catie 0.09 m/s e' lateral pk catie 0.11 m/s Avg e' pk catie 0.1 m/s E/e' septal ratio 13.87 E/e' lateral ratio 11.66 Avg E/e' ratio 12.77 LV - HCM AV LVOT peak gradient 5 mmHg Left Atrium LA ESV SP 4CH (MOD) 22 mL LA ESV SP 2CH (MOD) 41 mL Right Heart Measurements RV - 2D RV basal diam 3.66 cm RV mid diam 2 cm RV long diam 8.58 cm RV - Doppler TAPSE 1.7 cm RV S' 12.66 cm/s Great Vessels Aortic Root - End Diastolic Sinus 3.07 cm Ascending aorta 2.27 cm Inferior Vena Cava IVC ostium 1.53 cm Doppler Measurements - Aortic Valve Stenosis LVOT diameter 1.96 cm LVOT area 3.02 cm2 LVOT peak catie 1.08 m/s LVOT peak VTI 20.67 cm Stroke Volume 62 cm/mL Ao peak catie 1.48 m/s Ao VTI 33.79 cm AV peak gradient 9 mmHG AV mean gradient 5 mmHg DI (VTI) 0.61 m/2 DI (Vmax) 0.73 IRVIN (continuity Vmax) 2.2 cm2 IRVIN (continuity VTI) 1.84 cm2 LVOT stroke volume 62 cm3 Doppler Measurements - Mitral Valve Stenosis MV pk E catie 1.25 m/s MV stenosis pressure 1/2 time 38.46 ms MV valve area p 1/2 method 5.72 cm2 PISA-MS MV pk E catie 1.25 m/s PISA-MR Mr max catie 5.15 m/s MR VTI 148.31 cm Doppler Measurements - Tricuspid Valve Stenosis IVC ostium 1.53 cm Regurgitation TR pk catie 2.75 m/s TR pk grad 30 mmHg Doppler Measurements - Pulmonic Valve Stenosis PV PK CATIE 1.12 m/s PV VTI 19.49 cm2 PV peak gradient 5 mmHg PV mean gradient 3 mmHg RVOT peak catie 1.12 m/s RVOT peak VTI 18.59 cm RVOT peak gradient 5 mmHg Performing Staff Celine Newman RDCS Study Details A complete echocardiography study was performed. Imaging system used: Evrent. Indications for study: stroke/tia. Exam Details Performed Procedure Technologist Supporting Staff Performing Physician [place] ECHOCARDIOGRAM W/O 3D Celine Newman RDCS Appointment Date/Status Modality Department 01/09/2022 Arrived ECHO TESTING, [facility] ECHOCARDIOGRAPHY ROSS Begin Exam End Exam 01/09/2022 7:31 AM 01/09/2022 10:23 AM Vitals Height Weight BSA (Calculated - sq m) BP Pulse 55.2 kg (121 lb 11.1 oz) 114/54 114 Signed at 1237 EDT Order Report Order Details Encounter View Encounter External Results Report Open External Results Report Patient Release Status: This result is not viewable because no one can access it in [employer] ECHOCARDIOGRAM: Patient Communication Released Not seen ABN Associated with this Order There is no ABN associated with this order. Normal [facility] GLUCOSE POCon 01-09-2022 Glucose [Mass/Vol] 91 mg/dL 70 - 99 mg/dL [facility] POC Sample Type ARTER [facility] Glucose [Mass/Vol] 123 mg/dL High 70 - 99 mg/dL [facility] Interpretation and review of laboratory results Abnormal [facility] POC Sample Type CAPBL [facility] Glucose [Mass/Vol] 128 mg/dL High 70 - 99 mg/dL [facility] Interpretation and review of laboratory results Abnormal [facility] POC Sample Type CAPBL [facility] Glucose [Mass/Vol] 113 mg/dL High 70 - 99 mg/dL [facility] Interpretation and review of laboratory results Abnormal [facility] POC Sample Type VENO [facility] HEMOGLOBIN [id number] By: Tami Echavarria on 01-09-2022 Average glucose Estimated from glycated hemoglobin (Bld) [Mass/Vol] 105 mg/dL [facility] HbA1c (Bld) [Mass fraction] 5.3 % 4.7 - 5.6 % [facility] HEMOGLOBIN A1Con 01-09-2022 Glucose [Mass/Vol] 105 mg/dL Normal [facility] Comment on above: Performed By: #### L ABSARS1 #### [facility] (DEFAULT) [address] [place] [address] HbA1c (Bld) [Mass fraction] 5.3 % Normal 4.7-5.6 [facility] Comment on above: Performed By: #### L ABSARS1 #### [facility] (DEFAULT) [address] [place] [address] IONIZED CALCIUM, WHOLE BLOOD Ordered By: Carla Smith on 01-09-2022 Calcium.ionized (Bld) [Moles/Vol] 4.48 mg/dL Low 4.60 - 5.30 mg/dL [facility] Interpretation and review of laboratory results Abnormal [facility] IONIZED CALCIUM, WHOLE BLOOD on 01-09-2022 ICA 4.34 mg/dL Low 4.60-5.30 [facility] Comment on above: Performed By: #### T YPEC #### [facility] (DEFAULT) [address] [place] [address] MAGNESIUMon 01-09-2022 Magnesium [Mass/Vol] 1.5 mg/dL Low 1.6-2.6 [facility] Comment on above: Performed By: #### C HM7, PROCAL, IPB, CKB, MGO ####[facility] (DEFAULT)[address] [place] [address] No Panel Informationon 01-09 ABO/RH(D) TYPE Positive [facility] BLOOD COMPONENT TYPE Red Cells, Leukoreduced [facility] BLOOD COMPONENT TYPE Plasma, Thawed [facility] EXPIRATION DATE [facility] EXPIRATION DATE [facility] EXPIRATION DATE [facility] Product ABO/RH(D) Positive [facility] Product ABO/RH(D) NUMBER 5100 [facility] Product ABO/RH(D) NUMBER 6200 [facility] PRODUCT CODE [id number] [facility] PRODUCT CODE [id number] [facility] UNIT STATUS released [facility] PHOSPHATE, INORGANICon 01-09 Phosphorous 2.1 mg/dL Low 2.2-4.6 [facility] Comment on above: Performed By: #### C HM7, PROCAL, IPB, CKB, MGO ####[facility] (DEFAULT)[address] [place] [address] PREPARE TO TRANSFUSE OR PLAS MAon 01-09-2022 EXPIRATION DATE [facility] PRODUCT CODE [id number] [facility] UNIT NUMBER [id number] [facility] UNIT NUMBER [id number] [facility] UNIT NUMBER [id number] [facility] PREPARE TO TRANSFUSE OR RED BLOOD CELLSon 01-09-2022 UNIT NUMBER [id number] [facility] UNIT NUMBER [id number] [facility] UNIT NUMBER [id number] [facility] UNIT NUMBER [id number] [facility] UNIT STATUS transfused [facility] PROCALCITONINon 01-09-2022 Procalcitonin 0.10 ng/mL Normal <0.50 [facility] Comment on above: Result Comment: Proc alcitonin is an FDA-approved assay to help manage antibiotic treatment in patients with sepsis/septic shock and lower respiratory tract infections. Specifically, trending procalcitonin in these situations can be used to reduce the duration of antibiotics. Please refer to the Procalcitonin Guide on the Antimicrobial Stewardship Webpage for more guidance on how to use and trend procalcitonin in various clinical settings. [email or web address] Two common cutoffs associated with bacterial infections are as follows. Respiratory tract infections: >0.25 ng/mL Sepsis/septic shock: >0.5 ng/mL Procalcitonin should not be used alone as a diagnostic tool, however. All procalcitonin results should be interpreted in association with the patients clinical condition and all laboratory findings. Performed By: #### C HM7, PROCAL, IPB, CKB, MGO ####[facility] (DEFAULT)[address] [place] [address] PT,INR,PTTon 01-09-2022 aPTT Coag (Bld) [Time] 26.7 s Normal 24.0-34.3 [facility] Comment on above: Performed By: #### G AS5L #### [facility] (DEFAULT) [address] [place] [address] INR Coag (PPP) [Relative time] 1.1 {INR} Normal 0.9-1.1 [facility] Comment on above: Performed By: #### G AS5L #### [facility] (DEFAULT) [address] [place] [address] PT Coag (PPP) [Time] 14.1 s Normal 11.9-14.2 [facility] Comment on above: Performed By: #### G AS5L #### [facility] (DEFAULT) [address] [place] [address] Portable XR Chest Viewson RADIOLOGY RADIOLOGY [facility] Radiology Study observation (narrative) [facility] RADIOLOGY RADIOLOGY [facility] Portable XR Chest ViewsOrder ed By: Spencer Salinas on 01-09-2022 [facility] Work Phone: URINALYSIS REFLEX TO CULTURE PERFORMABLEon 01-09-2022 Appearance (U) Clear Normal Clear [facility] Comment on above: Order Comment: For i ndwelling catheters, specimen collection is acceptable on catheter day 1 and 2 only. ? Performed By: #### X M #### [facility] (DEFAULT) [address] [place] [address] Bacteria ABSENT Normal ABSENT [facility] Comment on above: Order Comment: For i ndwelling catheters, specimen collection is acceptable on catheter day 1 and 2 only. ? Performed By: #### X M #### [facility] (DEFAULT) [address] [place] [address] Blood Urine Trace Abnormal Negative [facility] Comment on above: Order Comment: For i ndwelling catheters, specimen collection is acceptable on catheter day 1 and 2 only. ? Performed By: #### X M #### [facility] (DEFAULT) [address] [place] [address] Color (U) Yellow Normal Yellow [facility] Comment on above: Order Comment: For i ndwelling catheters, specimen collection is acceptable on catheter day 1 and 2 only. ? Performed By: #### X M #### [facility] (DEFAULT) [address] [place] [address] Glucose Ql (U) Negative Normal Negative [facility] Comment on above: Order Comment: For i ndwelling catheters, specimen collection is acceptable on catheter day 1 and 2 only. ? Performed By: #### X M #### [facility] (DEFAULT) [address] [place] [address] Ketones Ql (U) >=80 mg/dL = Large Abnormal Negative [facility] Comment on above: Order Comment: For i ndwelling catheters, specimen collection is acceptable on catheter day 1 and 2 only. ? Performed By: #### X M #### [facility] (DEFAULT) [address] [place] [address] Leukocyte esterase Test strip Ql (U) Trace Abnormal Negative [facility] Comment on above: Order Comment: For i ndwelling catheters, specimen collection is acceptable on catheter day 1 and 2 only. ? Performed By: #### X M #### [facility] (DEFAULT) [address] [place] [address] Nitrites Urine Negative Normal Negative [facility] Comment on above: Order Comment: For i ndwelling catheters, specimen collection is acceptable on catheter day 1 and 2 only. ? Performed By: #### X M #### [facility] (DEFAULT) [address] [place] [address] pH (U) 5.0 [pH] Normal 5.0-7.0 [facility] Comment on above: Order Comment: For i ndwelling catheters, specimen collection is acceptable on catheter day 1 and 2 only. ? Performed By: #### X M #### [facility] (DEFAULT) [address] [place] [address] Protein Urine Negative Normal Negative [facility] Comment on above: Order Comment: For i ndwelling catheters, specimen collection is acceptable on catheter day 1 and 2 only. ? Performed By: #### X M #### [facility] (DEFAULT) [address] [place] [address] RBC Urine 3-5 Abnormal 0-2 [facility] Comment on above: Order Comment: For i ndwelling catheters, specimen collection is acceptable on catheter day 1 and 2 only. ? Performed By: #### X M #### [facility] (DEFAULT) [address] [place] [address] Specific [place] Urine 1.045 High 1.001-1.035 [facility] Comment on above: Order Comment: For i ndwelling catheters, specimen collection is acceptable on catheter day 1 and 2 only. ? Performed By: #### X M #### [facility] (DEFAULT) [address] [place] [address] Squamous/Epithelial Cells 1/hpf = 1+ Normal 1/hpf = 1+, 2-5/hpf = 2+, 0/hpf = 0+, ABSENT [facility] Comment on above: Order Comment: For i ndwelling catheters, specimen collection is acceptable on catheter day 1 and 2 only. ? Performed By: #### X M #### [facility] (DEFAULT) [address] [place] [address] 61374 Urobilinogen Urine 0.2 E.U./dL Normal 0.2 E.U/d L, 1.0 E.U/dL [facility] Comment on above: Order Comment: For i ndwelling catheters, specimen collection is acceptable on catheter day 1 and 2 only. ? Performed By: #### X M #### [facility] (DEFAULT) [address] [place] [address] 34787 WBC Urine 6-9 Abnormal 0-5 [facility] Comment on above: Order Comment: For i ndwelling catheters, specimen collection is acceptable on catheter day 1 and 2 only. ? Performed By: #### X M #### [facility] (DEFAULT) [address] [place] [address] 26423 URINE CULTUREon 01-09-2022 Bacteria identified Cx Nom (U) No Growth Normal [facility] Comment on above: Order Comment: For i ndwelling catheters, specimen collection is acceptable on catheter day 1 and 2 only. Jeffries top vacutainer. Urine must be to the fill line to process (4mls). If minimum volume, send urine in a yellow top vacutainer tube.For indwelling catheters, specimen collection is acceptable on catheter day 1 and 2 only. ? Performed By: #### X M #### [facility] (DEFAULT) [address] [place] [address] 66730 XR ABDOMEN 1 VIEW PORTABLEon 01-09-2022 XR ABDOMEN 1 VIEW PORTABLE EXAM: XR ABDOMEN 1 VIEW PORTABLE, 01/09/2022 03:03 AM COMPARISON: No prior abdominal radiographs available for comparison. CLINICAL INDICATIONS: og FINDINGS: The distal tip and side-port of the orogastric tube are visualized in the proximal to mid stomach in appropriate position. No gross free air is identified or visceromegaly. The bowel gas pattern is nonobstructive and partially imaged. The lower abdomen and most of the pelvis were excluded. No acute osseous abnormality is identified IMPRESSION: Appropriate position of the orogastric tube in the stomach. Normal [facility] XR Abdomen Single viewon RADIOLOGY RADIOLOGY [facility] XR Abdomen Single viewOrdere d By: Hilaria Galeana on 01-09-2022 [facility] Work Phone: XR CHEST PORTABLEon 01-10-20 XR CHEST PORTABLE EXAM: XR CHEST PORTABLE, 01/09/2022 18:58 PM COMPARISON: January 09, 2022 CLINICAL INDICATIONS: Assess SOB RELEVANT CLINICAL HISTORY: FINDINGS: (Adequate technique) Implanted Devices: Endotracheal tube removed. Thorax: No acute findings in the chest. The lungs are grossly clear with no focal airspace disease or overt pulmonary edema. No definite pleural effusion or pneumothorax. Heart size is within normal limits. Chest wall structures are unremarkable. IMPRESSION: No acute cardiopulmonary disease Normal [facility] XR CHEST PORTABLE EXAM: XR CHEST PORTABLE, 01/09/2022 03:03 AM COMPARISON: No prior studies available for comparison. CLINICAL INDICATIONS: copd/ et tube placement RELEVANT CLINICAL HISTORY: FINDINGS: (Adequate technique) Tubes, Lines, and life support hardware: An endotracheal tube is seen with its tip approximately 2.6 cm from the claude. A feeding tube is seen entering the stomach. Lungs: The lungs are clear. There are no pleural effusions. There is no pneumothorax. Cardiac, mediastinum, and hilum: The cardiomediastinal silhouette is within normal limits. ... Pulmonary Vessels: Normal, without PVH Impression: 1. No acute disease in the chest. 2. The endotracheal tube tip remains in appropriate position, approximately 2.6 cm from the claude. Normal [facility] ABORH TYPE RECONFIRMATIONon 01-08-2022 ABO/RH(D) TYPE Positive Normal [facility] Comment on above: Result Comment: @01/23 21:51 by EB1: Performed By: #### T YPEC #### [facility] (DEFAULT) [address] [place] [address] ALCOHOL (ETHANOL),BLOODon Alcohol, Serum <10 Normal <10 [facility] Comment on above: Order Comment: For i ndwelling catheters, specimen collection is acceptable on catheter day 1 and 2 only. ? Performed By: #### U [id number] #### [facility] (DEFAULT) [address] [place] [address] 48918 Ethanol [Mass/Vol] Not detected Normal [facility] Comment on above: Order Comment: For i ndwelling catheters, specimen collection is acceptable on catheter day 1 and 2 only. ? Performed By: #### U [id number] #### [facility] (DEFAULT) [address] [place] [address] 86942 BETA HCG, QUAL, BLOODon 07-0 HCG (Qual) Serum Negative Normal Negative [facility] Comment on above: Performed By: #### U [id number] #### [facility] (DEFAULT) [address] [place] [address] 63365 CALCIUMon 01-08-2022 Calcium [Mass/Vol] 7.7 mg/dL Low 8.6-10.5 [facility] Comment on above: Performed By: #### L [id number] #### [facility] (DEFAULT) [address] [place] [address] 77602 CBC AND ELECTRONIC DIFFon Basophils (Bld) [#/Vol] 10*3/uL Normal 0.00-0.15 [facility] Comment on above: Performed By: #### I PB, CHM7, MGO #### [facility] (DEFAULT) [address] [place] [address] 53868 Basophils/100 WBC (Bld) 0.3 % Normal [facility] Comment on above: Performed By: #### I PB, CHM7, MGO #### [facility] (DEFAULT) [address] [place] [address] 07316 DIFF STATUS Electronic Differential Normal [facility] Comment on above: Performed By: #### I PB, CHM7, MGO #### [facility] (DEFAULT) [address] [place] [address] 62705 Eosinophils (Bld) [#/Vol] 10*3/uL Normal 0.00-0.42 [facility] Comment on above: Performed By: #### I PB, CHM7, MGO #### [facility] (DEFAULT) [address] [place] [address] 93860 Eosinophils/100 WBC (Bld) 0.1 % Normal [facility] Comment on above: Performed By: #### I PB, CHM7, MGO #### [facility] (DEFAULT) [address] [place] [address] 50534 Hematocrit (Bld) [Volume fraction] 21.2 % Low 34.9-44.3 [facility] Comment on above: Performed By: #### I PB, CHM7, MGO #### [facility] (DEFAULT) [address] [place] [address] 52274 Hemoglobin (Bld) [Mass/Vol] 6.9 g/dL Critically low 11.4-15.2 [facility] Comment on above: Result Comment: This result has been called to MARCUS BALDERRAMA RN by Dionicio Anguiano on 01 08 2022 at 2037, and has been read back. Performed By: #### I PB, CHM7, MGO #### [facility] (DEFAULT) [address] [place] [address] 79413 Immature Grans % 0.4 % Normal [facility] Comment on above: Performed By: #### I PB, CHM7, MGO #### [facility] (DEFAULT) [address] [place] [address] 98720 Immature Grans Absolute 0.04 K/uL Normal <=0.08 [facility] Comment on above: Performed By: #### I PB, CHM7, MGO #### [facility] (DEFAULT) [address] [place] [address] 62624 Lymphocytes (Bld) [#/Vol] 1.62 10*3/uL Normal 1.16-3.51 [facility] Comment on above: Performed By: #### I PB, CHM7, MGO #### [facility] (DEFAULT) [address] [place] [address] 81409 Lymphocytes/100 WBC (Bld) 17.8 % Normal [facility] Comment on above: Performed By: #### I PB, CHM7, MGO #### [facility] (DEFAULT) [address] [place] [address] 94284 MCV (RBC) [Entitic vol] 88.0 fL Normal 79.6-97.7 [facility] Comment on above: Performed By: #### I PB, CHM7, MGO #### [facility] (DEFAULT) [address] [place] [address] 87464 Mean Cell Hgb 28.6 pg Normal 25.9-33.9 [facility] Comment on above: Performed By: #### I PB, CHM7, MGO #### [facility] (DEFAULT) [address] [place] [address] 72474 Mean Cell Hgb Conc 32.5 g/dL Normal 31.4-35.9 [facility] Comment on above: Performed By: #### I PB, CHM7, MGO #### [facility] (DEFAULT) [address] [place] [address] 81351 Monocytes (Bld) [#/Vol] 0.98 10*3/uL High 0.22-0.87 [facility] Comment on above: Performed By: #### I PB, CHM7, MGO #### [facility] (DEFAULT) [address] [place] [address] 53022 Monocytes/100 WBC (Bld) 10.8 % Normal [facility] Comment on above: Performed By: #### I PB, CHM7, MGO #### [facility] (DEFAULT) [address] [address] Nucleated RBC 0.0 /100 WBC Normal <=0.2 [facility] Comment on above: Performed By: #### I PB, CHM7, MGO #### [facility] (DEFAULT) [address] [place] [address] 73873 Platelet mean volume (Bld) [Entitic vol] 9.1 fL Normal 8.5-12.2 [facility] Comment on above: Performed By: #### I PB, CHM7, MGO #### [facility] (DEFAULT) [address] [place] [address] 65503 Platelets (Bld) [#/Vol] 219 10*3/uL Normal 150-393 [facility] Comment on above: Performed By: #### I PB, CHM7, MGO #### [facility] (DEFAULT) [address] [place] [address] 37789 RBC (Bld) [#/Vol] 2.41 10*6/uL Low 3.91-5.04 [facility] Comment on above: Performed By: #### I PB, CHM7, MGO #### [facility] (DEFAULT) [address] [place] [address] 07809 RBC Distribution 13.2 % Normal 10.8-14.9 [facility] Comment on above: Performed By: #### I PB, CHM7, MGO #### [facility] (DEFAULT) [address] [place] [address] 01926 Segs + Bands Auto 70.6 % Normal [facility] Comment on above: Performed By: #### I PB, CHM7, MGO #### [facility] (DEFAULT) [address] [place] [address] 18187 Segs + Bands,Absolute Auto 6.40 K/uL Normal 1.64-7.28 [facility] Comment on above: Performed By: #### I PB, CHM7, MGO #### [facility] (DEFAULT) [address] [place] [address] 96648 WBC (Bld) [#/Vol] 9.08 10*3/uL Normal 3.99-11.19 [facility] Comment on above: Performed By: #### I PB, CHM7, MGO #### [facility] (DEFAULT) [address] [place] [address] Basophils (Bld) [#/Vol] 10*3/uL Normal 0.00-0.15 [facility] Comment on above: Performed By: #### L [id number] ####[facility] (DEFAULT)[address] [place] [address] Basophils/100 WBC (Bld) 0.3 % Normal [facility] Comment on above: Performed By: #### L [id number] ####[facility] (DEFAULT)[address] [place] [address] DIFF STATUS Electronic Differential Normal [facility] Comment on above: Performed By: #### L [id number] ####[facility] (DEFAULT)[address] [place] [address] Eosinophils (Bld) [#/Vol] 10*3/uL Normal 0.00-0.42 [facility] Comment on above: Performed By: #### L [id number] ####[facility] (DEFAULT)[address] [place] [address] Eosinophils/100 WBC (Bld) 0.2 % Normal [facility] Comment on above: Performed By: #### L [id number] ####[facility] (DEFAULT)[address] [place] [address] Hematocrit (Bld) [Volume fraction] 22.5 % Low 34.9-44.3 [facility] Comment on above: Performed By: #### L [id number] ####[facility] (DEFAULT)[address] [place] [address] Hemoglobin (Bld) [Mass/Vol] 7.1 g/dL Low 11.4-15.2 [facility] Comment on above: Performed By: #### L [id number] ####[facility] (DEFAULT)[address] [place] [address] Immature Grans % 0.6 % Normal [facility] Comment on above: Performed By: #### L [id number] ####[facility] (DEFAULT)[address] [facility] [place] [address] Immature Grans Absolute 0.04 K/uL Normal <=0.08 [facility] Comment on above: Performed By: #### L [id number] ####[facility] (DEFAULT)[address] [place] [address], [place] [address] Lymphocytes (Bld) [#/Vol] 1.05 10*3/uL Low 1.16-3.51 [facility] Comment on above: Performed By: #### L [id number] ####[facility] (DEFAULT)[address] [place] [address] Lymphocytes/100 WBC (Bld) 16.4 % Normal [facility] Comment on above: Performed By: #### L [id number] ####[facility] (DEFAULT)[address] [place] [address] MCV (RBC) [Entitic vol] 92.6 fL Normal 79.6-97.7 [facility] Comment on above: Performed By: #### L [id number] ####[facility] (DEFAULT)[address] [place] [address] Mean Cell Hgb 29.2 pg Normal 25.9-33.9 [facility] Comment on above: Performed By: #### L [id number] ####[facility] (DEFAULT)[address] [place] [address], [place] [address] Mean Cell Hgb Conc 31.6 g/dL Normal 31.4-35.9 [facility] Comment on above: Performed By: #### L [id number] ####[facility] (DEFAULT)[address] [place] [address] Mean Platelet Volume Normal [facility] Comment on above: Result Comment: Not measured Performed By: #### L [id number] ####[facility] (DEFAULT)[address] [place] [address] Monocytes (Bld) [#/Vol] 0.48 10*3/uL Normal 0.22-0.87 [facility] Comment on above: Performed By: #### L [id number] ####[facility] (DEFAULT)[address] [place] [address] Monocytes/100 WBC (Bld) 7.5 % Normal [facility] Comment on above: Performed By: #### L [id number] ####[facility] (DEFAULT)[address] [place] [address] Nucleated RBC 0.0 /100 WBC Normal <=0.2 [facility] Comment on above: Performed By: #### L [id number] ####[facility] (DEFAULT)[address] [place] [address] Platelets (Bld) [#/Vol] 64 10*3/uL Low 150-393 [facility] Comment on above: Result Comment: Auto mated platelet count confirmed by manual slide review. This is an appended report. These results have been appended to a previously preliminary verified report. Performed By: #### L [id number] ####[facility] (DEFAULT)[address] [place] [address] RBC (Bld) [#/Vol] 2.43 10*6/uL Low 3.91-5.04 [facility] Comment on above: Performed By: #### L [id number] ####[facility] (DEFAULT)[address] [place] [address] RBC Distribution 12.8 % Normal 10.8-14.9 [facility] Comment on above: Performed By: #### L [id number] ####[facility] (DEFAULT)[address] [place] [address] Segs + Bands Auto 75.0 % Normal [facility] Comment on above: Performed By: #### L [id number] ####[facility] (DEFAULT)[address] [place] [address] 27531 Segs + Bands,Absolute Auto 4.81 K/uL Normal 1.64-7.28 [facility] Comment on above: Performed By: #### L [id number] ####[facility] (DEFAULT)[address] [place] [address] 86860 WBC (Bld) [#/Vol] 6.41 10*3/uL Normal 3.99-11.19 [facility] Comment on above: Performed By: #### L [id number] ####[facility] (DEFAULT)[address] [place] [address]104 CHEM 7 (LYTES,BUN,CREA,GLUC) on 01-08-2022 Anion gap [Moles/Vol] 16 mmol/L Normal 7-17 [facility] Comment on above: Performed By: #### U [id number] #### [facility] (DEFAULT) [address] [place] [address] 99934 Chloride [Moles/Vol] 103 mmol/L Normal 98-108 [facility] Comment on above: Performed By: #### U [id number] #### [facility] (DEFAULT) [address] [place] [address] 66425 CO2 [Moles/Vol] 26 mmol/L Normal 21-31 [facility] Comment on above: Performed By: #### U [id number] #### [facility] (DEFAULT) [address] [place] [address] 21340 Creatinine [Mass/Vol] 0.60 mg/dL Normal 0.50-1.20 [facility] Comment on above: Performed By: #### U [id number] #### [facility] (DEFAULT) [address] [place] [address] 00536 eGFR, CKD-EPI, Female >90 Normal >=60 [facility] Comment on above: Result Comment: Repo rted eGFR is based on the CKD-EPI 2020 equation using creatinine, age, and sex. Performed By: #### U [id number] #### [facility] (DEFAULT) [address] [place] [address] 32529 Glucose [Mass/Vol] 106 mg/dL High 70-99 [facility] Comment on above: Performed By: #### U [id number] #### [facility] (DEFAULT) [address] [place] [address] 89366 Osmolality [Osmolality] 297 mosm/kg Normal 278-305 [facility] Comment on above: Performed By: #### U [id number] #### [facility] (DEFAULT) [address] [place] [address] 40754 Potassium [Moles/Vol] 3.8 mmol/L Normal 3.5-5.0 [facility] Comment on above: Performed By: #### U [id number] #### [facility] (DEFAULT) [address] [place] [address] 10387 Sodium [Moles/Vol] 141 mmol/L Normal 135-145 [facility] Comment on above: Performed By: #### U [id number] #### [facility] (DEFAULT) [address] [place] [address] 00244 Urea nitrogen [Mass/Vol] 20 mg/dL Normal 7-25 [facility] Comment on above: Performed By: #### U [id number] #### [facility] (DEFAULT) [address] [place] [address] 25515 Urea nitrogen/Creatinine [Mass ratio] 33 mg/mg Normal [facility] Comment on above: Performed By: #### U [id number] #### [facility] (DEFAULT) [address] [place] [address] 10433 CHM 7 - EDon 01-08-2022 Anion gap [Moles/Vol] 12 mmol/L Normal 7-17 [facility] Comment on above: Performed By: #### U [id number] #### [facility] (DEFAULT) [address] [place] [address] 26303 Chloride [Moles/Vol] 104 mmol/L Normal 98-108 [facility] Comment on above: Performed By: #### U [id number] #### [facility] (DEFAULT) [address] [place] [address] 09406 CO2 [Moles/Vol] 25 mmol/L Normal 21-31 [facility] Comment on above: Performed By: #### U [id number] #### [facility] (DEFAULT) [address] [place] [address] 98494 Creatinine [Mass/Vol] 0.67 mg/dL Normal 0.50-1.20 [facility] Comment on above: Performed By: #### U [id number] #### [facility] (DEFAULT) [address] [place] [address] 75752 eGFR, CKD-EPI, Female >90 Normal >=60 [facility] Comment on above: Result Comment: Repo rted eGFR is based on the CKD-EPI 2020 equation using creatinine, age, and sex. Performed By: #### U [id number] #### [facility] (DEFAULT) [address] [place] [address] 99764 Glucose [Mass/Vol] 88 mg/dL Normal 70-99 [facility] Comment on above: Performed By: #### U [id number] #### [facility] (DEFAULT) [address] [place] [address] 71246 Osmolality [Osmolality] 291 mosm/kg Normal 278-305 [facility] Comment on above: Performed By: #### U [id number] #### [facility] (DEFAULT) [address] [place] [address] 58079 Potassium [Moles/Vol] 3.9 mmol/L Normal 3.5-5.0 [facility] Comment on above: Performed By: #### U [id number] #### [facility] (DEFAULT) [address] [place] [address] 90954 Sodium [Moles/Vol] 137 mmol/L Normal 135-145 [facility] Comment on above: Performed By: #### U [id number] #### [facility] (DEFAULT) [address] [place] [address] 03321 Urea nitrogen [Mass/Vol] 25 mg/dL Normal 7-25 [facility] Comment on above: Performed By: #### U [id number] #### [facility] (DEFAULT) [address] [place] [address] 24441 Urea nitrogen/Creatinine [Mass ratio] 37 mg/mg Normal [facility] Comment on above: Performed By: #### U [id number] #### [facility] (DEFAULT) [address] [place] [address] 87599 CKon 01-08-2022 CK [Catalytic activity/Vol] 132 U/L Normal 30-184 [facility] Comment on above: Performed By: #### U [id number] #### [facility] (DEFAULT) [address] [place] [address] ABDOMEN/PELVIS WITH CONTR AST VASCULAR TRAUMAon 01-08-2022 CT ABDOMEN/PELVIS WITH CONTRAST VASCULAR TRAUMA EXAM: CT ABDOMEN/PELVIS WITH CONTRAST VASCULAR TRAUMA, 01/08/2022 15:10 PM COMPARISON: No prior studies available for comparison. CLINICAL INDICATIONS: trauma; TECHNIQUE: Dual phase trauma scan: CT axial images of the abdomen and pelvis were performed from the lung bases through the ischial tuberosities following the administration of intravenous contrast in the arterial phase. CT images were also obtained through the abdomen in the portal venous phase. No oral contrast was administered per trauma protocol. Multiplanar reformats were generated.? Volume rendering technique was used to create 3D reconstructed images of the abdomen and pelvis. The reformatted images were reviewed and approved by David Diego MD, MBSERGIO. CONTRAST: Iopamidol (370 mg/mL) (ISOVUE) 76 % 75 mL; Route of Administration: Intravenous; Dose: 75 mL. FINDINGS: Lung Bases: Visualized lung bases reveal linear and subsegmental atelectasis in the lower lobes. Calcified granuloma is seen in the right lung. Atherosclerotic calcifications in the distal thoracic aorta. No pleural or pericardial effusion. No definite pneumothorax in the visualized lung bases. ABDOMEN Liver: Liver is normal in size and morphology. No clear liver lacerations or perihepatic hematoma. No discrete suspicious focal liver lesions Portal vein is patent. Mild dilatation of the intrahepatic ducts. No perihepatic fluid or collection is seen Biliary/Gallbladder: Gallbladder is non-visualized likely removed. Diffuse dilatation of the common bile duct and mild dilatation of the intrahepatic ducts. CBD measures up to 1.4 cm in caliber. No definite calcified CBD stones Spleen: Spleen is normal in size and CT density. Capsular irregularity and scarring in the lateral interpolar cortex of the spleen. No gross focal splenic lesions or perisplenic collections. Splenic vascular pedicle is patent. Pancreas: Pancreas shows no discrete focal lesions. Main pancreatic duct measures up to 7 mm in maximum caliber and is mildly dilated. Slight heterogeneity and some fatty replacement in the pancreatic parenchyma. There are no peripancreatic inflammatory changes or fluid collections. Adrenals: Adrenal glands are unremarkable. Kidneys: Kidneys show symmetric enhancement with no calculus or hydronephrosis. Mild multifocal cortical scarring and some lobulated outline in the kidneys bilaterally. There are no focal lesions noted within the kidneys. No definite renal lacerations or perinephric hematoma. No perinephric or retroperitoneal fluid collections. The ureters are nondilated Retroperitoneal/Vascula ture: Abdominal aorta and its branches are patent. Mesenteric vasculature is also patent. Atherosclerotic wall thickening and calcifications in the abdominal aorta and the iliac arteries. Scattered small periaortic and retroperitoneal nodes are seen. There are no discrete enlarged abdominal or retroperitoneal lymph nodes. No free fluid is noted within the abdomen or pelvis. There are no loculated collections or abscess. Iliopsoas muscles are symmetric Gastrointestinal/Mesent tabitha: Stomach is partly distended with fluid detailed evaluation. Dobbhoff tube is seen extending up to the gastric body. There is a small lipoma in the distal stomach measuring 2.2 x 1.4 cm in size. The small bowel loops are grossly unremarkable and nonobstructed. No mesenteric mass or adenopathy is seen. No mesenteric collections or hematoma. Fatty hypertrophy of the ileocecal valve. Appendix: Appendix is not clearly identified. Fecal residue is noted within the colonic loops limiting detailed evaluation. No gross colonic mass or paracolic inflammation is seen. Scattered sigmoid diverticula are seen. No gross free air or pneumatosis. PELVIS Bladder: Urinary bladder is partly distended with no gross mass or calculus. Soliman catheter is seen within the bladder extending into the right superior aspect. Bladder wall thickness is within normal limits. Distal ureters are nondilated. No perivesical fluid collections or hematoma. Air pockets are noted within the bladder Genital: Uterus shows no discrete focal abnormalities. There is a simple appearing cyst in the left ovary measuring up to 2.5 cm in diameter. Small cyst is also noted within the right ovary measuring up to 1.6 cm in size. No pelvic free fluid or any collections. Vascular calcifications in the pelvis. No pelvic or inguinal lymphadenopathy Mild diastasis of the rectus muscles No definite body wall hematomas appreciated on this exam. Mild soft tissue edema is seen in the flanks and in the pelvis Bony Structures: Visualized bony structures reveal degenerative changes in the visualized spine and the pelvic bones. There is mild generalized osteopenia. No definite bony fractures in the visualized skeleton IMPRESSION: 1. No convincing evidence of solid organ or hollow viscous injury within the abdomen or pe (more content not included)... Normal [facility] CT CHEST WITH CONTRAST VASCU LAR TRAUMAon 01-08-2022 CT CHEST WITH CONTRAST VASCULAR TRAUMA EXAM: CT CHEST WITH CONTRAST VASCULAR TRAUMA, 01/08/2022 15:08 PM COMPARISON: No Available Comparisons. CLINICAL INDICATIONS: Chest trauma, mod-severe; trauma; TECHNIQUE: Scanning Procedure: Protocols: Spiral acquisition to produce transaxial images from the thoracic inlet through the upper abdomen during intravenous bolus administration of iodinated contrast. Radation Exposure: Contrast Enhancement: Contrast Agent Type/Total Volume: Iopamidol (370 mg/mL) (ISOVUE) 76 % 75 mL / Dose: 75 mL ml IV IMAGE ASSESSMENT: Image Review & Analysis: Both basic image visualization (e.g. image stack scrolling) and advanced image post-processing of provided image-data was performed. In addition to Multi-Planar Reconstruction (MPR) formation, advanced CT angiographic post-processing was performed and included the use of Maximum Intensity Projection (MIP) and/or Volume-Rendered Technique (VRT) applications. Findings: Life Support Devices: An endotracheal tube is seen with its tip approximately 2.4 cm from the claude. A feeding tube is seen entering the stomach. Chest Wall: Age indeterminate compression deformity of the vertebral body at T12. Healing fractures of the anterolateral and lateral aspects of the left sixth, seventh, eighth, and ninth ribs. Mediastinum/Vanna: Normal, without evidence of mediastinal bleeding or adenopathy Pleural Spaces: Normal, without pneumothorax or effusion Lungs: Moderate upper lung predominant centrilobular emphysema. No consolidative opacities in the lungs. Dependent and curvilinear atelectatic foci in the bilateral lungs. Pericardium: Normal, without evidence of simple or bloody effusion Cardiac Chambers: Normal, without evidence of contusion Thoracic Aorta: There are mild coronary artery calcifications. There are mild atherosclerotic changes of the thoracic aorta and great vessels. Main & Central Pulmonary Arteries: Normal, without evidence of arterial injury or pulmonary embolus Upper Abdomen: Please refer to the report for the dedicated CT examination of the abdomen performed on the same day. IMPRESSION: 1. Compression deformity of vertebral body at T12. 2. Healing fractures of the anterolateral aspects of the left sixth through ninth ribs. 3. No suspicious consolidative or nodular opacities in the lungs. 4. No evidence of pneumothorax. 5. Please see the dedicated report for the corresponding same day abdominal CT examination. Findings communicated to Kailee Lyon MD on 01/08/2022 3:37 PM. Normal [facility] CT FACIAL WITHOUT CONTRASTon 01-08-2022 CT FACIAL WITHOUT CONTRAST EXAM: CT FACIAL WITHOUT CONTRAST, 01/08/2022 15:08 PM COMPARISON: No previous study is available for comparison. CLINICAL INDICATIONS: 66 years Female Facial trauma; RELEVANT CLINICAL HISTORY: TECHNIQUE: A series of thin section transaxial tomographic images of the facial region are obtained without contrast. Coronal, sagittal, and axial reformats are provided. FINDINGS: Endotracheal and nasogastric tubes are present. No fracture, dislocation, or destructive lesion is identified. Mandible is intact. Bony margins orbits are intact. No retro-orbital or subperiosteal hematoma. Optic globes appear intact. Patient is noted to be status post bilateral cataract surgery. Minimal air-fluid levels are present in the left maxillary sinus and the sphenoid sinuses. Small ossific density noted in posterior left ethmoid air cells, compatible with osteoma. IMPRESSION: No evidence of facial bone fracture. Normal [facility] CT HEAD WITHOUT CONTRASTon 0 01-08-2022 CT HEAD WITHOUT CONTRAST EXAM: CT HEAD WITHOUT CONTRAST, 01/08/2022 3:07 PM COMPARISON: None. CLINICAL INDICATIONS: 66 years Female Polytrauma, critical, head/C-spine injury suspected; TECHNIQUE: A series of transaxial computerized tomographic images are obtained from base of skull to vertex without intravenous contrast. Axial whole-head and thin section posterior fossa slices are provided. Reformats: Sagittal and coronal. FINDINGS: There is acute subdural hematoma overlying the right cerebral convexity with additional small amount of subdural hemorrhage along the right aspect of the falx cerebri. The lateral component measures 1.4 cm in thickness on coronal reformat image 43. There is 1.1 cm of rightward midline shift with mild subfalcine herniation and mild uncal and downward transtentorial herniation of the right cerebral hemisphere. Prominent area of low-attenuation within the right occipital lobe, which may represent a late subacute to chronic infarct. Additional more chronic appearing infarct in the left parietal lobe. There is asymmetric prominence of the left lateral ventricle, most notably in the atrium and temporal horns, raising concern for ventricular entrapment. There is no abnormal increased or decreased attenuation. There is no mass lesion or midline shift. There is no evidence of hemorrhage or acute infarct. Ventricles are normal in size and configuration for patient's stated age. Chronic lacunar infarcts in the bilateral cerebellar hemispheres. Atherosclerotic calcifications of the major arteries at the skull base are present. Calvarium and skull base appear intact. Visualized sinuses show no air fluid levels. Visualized orbits are unremarkable. IMPRESSION: Acute right subdural hematoma with possible 1 cm of leftward midline shift. Mild subfalcine and uncal herniation. Asymmetric enlargement of the left temporal horn, raising concern for trapped ventricle. Prominent area of low-attenuation in the right occipital lobe, concerning for a late subacute to chronic infarct. Additional more chronic appearing infarct in the left parietal lobe. Findings of right holohemispheric subdural hematoma and leftward midline shift was discussed with Dr. Nelson Carmona on 01/08/2022 3:25 PM. Normal [facility] CT SPINE CERVICAL WITHOUT CO NTRASTon 01-08-2022 CT SPINE CERVICAL WITHOUT CONTRAST EXAM: CT SPINE CERVICAL WITHOUT CONTRAST, 01/08/2022 15:07 PM COMPARISON: No prior studies available for comparison. CLINICAL INDICATIONS: 66 years Female Polytrauma, critical, head/C-spine injury suspected; RELEVANT CLINICAL HISTORY: TECHNIQUE: A series of transaxial multislice computerized tomographic thin section source images are obtained with helical technique from clivus to upper thoracic spine without contrast. Reformats: Axial, sagittal, coronal. FINDINGS: Minimal degenerative retrolisthesis of C4 on C5 by 1 to 2 mm. Vertebral bodies are normal in height. No cervical spinal fracture is identified. Base of dens is intact. Prevertebral and other paraspinal soft tissues are within normal limits. Mild spondylotic changes are present. Small disc osteophytes are seen at the C4-C5, C5-C6 and C6-C7 levels, without cervical stenosis. No significant neural foraminal stenosis. Skull base and craniocervical junction is within normal limits. Endotracheal and nasogastric tubes are present. IMPRESSION: 1. No evidence of fracture or dislocation of the cervical spine. 2. Mild cervical spondylosis, as above. Normal [facility] CT SPINE LUMBAR WITHOUT CONT RASTon 01-08-2022 CT SPINE LUMBAR WITHOUT CONTRAST EXAM: CT SPINE LUMBAR WITHOUT CONTRAST, 01/08/2022 15:08 PM COMPARISON: No prior studies available for comparison. CLINICAL INDICATIONS: 66 years Female Polytrauma, critical, T/L spine injury suspected; RELEVANT CLINICAL HISTORY: TECHNIQUE: A series of transaxial multislice computerized tomographic thin section source images of the lumbar spine are constructed from contrast-enhanced CT of abdomen/pelvis. Reformats: Axial, sagittal, coronal. FINDINGS: Alignment is normal. Vertebral bodies are normal in height. No evidence of lumbosacral spine fracture. Paraspinal soft tissues are within normal limits. Intervertebral discs are normal in height. No disc herniation, central spinal stenosis or neural foraminal stenosis. IMPRESSION: No evidence of fracture or dislocation of the lumbosacral spine. Normal [facility] CT SPINE THORACIC WITHOUT CO NTRASTon 01-08-2022 CT SPINE THORACIC WITHOUT CONTRAST EXAM: CT SPINE THORACIC WITHOUT CONTRAST, 01/08/2022 15:07 PM COMPARISON: No prior studies available for comparison. CLINICAL INDICATIONS: 66 years Female Polytrauma, critical, T/L spine injury suspected; RELEVANT CLINICAL HISTORY: TECHNIQUE: A series of transaxial multislice computerized tomographic thin section source images of the thoracic spine are reconstructed from contrast-enhanced CT of chest. Reformats: Axial, sagittal, coronal. FINDINGS: Nasogastric and endotracheal tubes are noted. Alignment is normal. T12 vertebral body shows mild anterior wedge deformity, with mild collapse mainly involving the superior endplate. Schmorl's node seen at the superior plate. No associated paraspinal edema or hemorrhage. Appearance is compatible with a mild chronic compression fracture. Other vertebral bodies are normal in height. Paraspinal soft tissues are within normal limits. Mild degenerative changes, with small anterior osteophytes at multiple levels. No thoracic disc herniation. Thoracic spinal canal is patent. IMPRESSION: 1. No evidence of acute fracture or dislocation of the thoracic spine. 2. Mild chronic compression fracture of T12. 3. Mild thoracic spondylosis, as above. Normal [facility] DRUGS OF ABUSE SCREEN 10, UR INEon 01-08-2022 Amphetamine/Methampheta mine Negative Normal Cutoff: 500 ng/mL [facility] Comment on above: Order Comment: For m edical purposes only. Positive results are unconfirmed unless otherwise noted. Performed By: #### I PB, CHM7, MGO #### [facility] (DEFAULT) [address] [address] Barbiturates Negative Normal Cutoff: 200 ng/mL [facility] Comment on above: Order Comment: For m edical purposes only. Positive results are unconfirmed unless otherwise noted. Performed By: #### I PB, CHM7, MGO #### [facility] (DEFAULT) [address] [address] Benzodiazepines Negative Normal Cutoff: 200 ng/mL [facility] Comment on above: Order Comment: For m edical purposes only. Positive results are unconfirmed unless otherwise noted. Performed By: #### I PB, CHM7, MGO #### [facility] (DEFAULT) [address] [place] [address] Buprenorphine Negative Normal Cutoff: 5 ng/mL [facility] Comment on above: Order Comment: For m edical purposes only. Positive results are unconfirmed unless otherwise noted. Performed By: #### I PB, CHM7, MGO #### [facility] (DEFAULT) [address] [place] [address] Cannabinoids Screen Ql (U) Negative Normal Cutoff: 50 ng/mL [facility] Comment on above: Order Comment: For m edical purposes only. Positive results are unconfirmed unless otherwise noted. Performed By: #### I PB, CHM7, MGO #### [facility] (DEFAULT) [address] [address] Cocaine Negative Normal Cutoff: 150 ng/mL [facility] Comment on above: Order Comment: For m edical purposes only. Positive results are unconfirmed unless otherwise noted. Performed By: #### I PB, CHM7, MGO #### [facility] (DEFAULT) [address] [address] Fentanyl Negative Normal Cutoff: 1 ng/mL [facility] Comment on above: Order Comment: For edical purposes only. Positive results are unconfirmed unless otherwise noted. Performed By: #### I PB, CHM7, MGO #### [facility] (DEFAULT) [address] [address] Methadone Negative Normal Cutoff: 300 ng/mL [facility] Comment on above: Order Comment: For m edical purposes only. Positive results are unconfirmed unless otherwise noted. Performed By: #### I PB, CHM7, MGO #### [facility] [address] [place] [address] Opiates Positive Abnormal Cutoff: 300 ng/mL [facility] Comment on above: Order Comment: For edical purposes only. Positive results are unconfirmed unless otherwise noted. Performed By: #### I PB, CHM7, MGO #### [facility] (DEFAULT) [address] [place] [address] Oxycodone Negative Normal Cutoff: 100 ng/mL [facility] Comment on above: Order Comment: For m edical purposes only. Positive results are unconfirmed unless otherwise noted. Performed By: #### I PB, CHM7, MGO #### [facility] (DEFAULT) [address] [place] [address] HEPATITIS B SURFACE ANTIGENo n 01-08-2022 Hepatitis B Surface Ag Negative Normal Negative [facility] Comment on above: Performed By: #### L [id number] #### [facility] (DEFAULT) [address] [place] [address] HEPATITIS C ANTIBODYon 01-08 Hepatitis C Antibody Negative Normal Negative [facility] Comment on above: Order Comment: Three serum separators are necessary for this test.Lab accession under [id number] Performed By: #### X M #### [facility] (DEFAULT) [address] [place] [address] HIGH SENSITIVITY TROPONIN I - SINGLE ORDERon 01-08-2022 hs-Troponin I 16 ng/L Normal <34 [facility] Comment on above: Order Comment: For i ndwelling catheters, specimen collection is acceptable on catheter day 1 and 2 only. ? Performed By: #### U [id number] #### [facility] (DEFAULT) [address] [place] [address] LIPID PANEL WITH REFLEX TO M EASURED LDLon 01-08-2022 Calculated LDL Cholesterol 31 mg/dL Normal 0-99 [facility] Comment on above: Result Comment: [<10 0 mg/dL: Optimal] [100-129 mg/dL: Near Optimal] [130-159 mg/dL: Borderline High] [160-189 mg/dL: High] [>189 mg/dL: Very High] Performed By: #### U [id number] #### [facility] (DEFAULT) [address] [place] [address] Cholesterol [Mass/Vol] 91 mg/dL Normal <200 [facility] Comment on above: Result Comment: [<20 0 mg/dL: Desirable] [200-239 mg/dL: Borderline High] [>239 mg/dL: High] Performed By: #### U [id number] #### [facility] (DEFAULT) [address] [place] [address] Cholesterol in HDL [Mass/Vol] 37 mg/dL Low >=40 [facility] Comment on above: Result Comment: [<40 mg/dL: Low (High Risk)] [>59 mg/dL: High (Low Risk)] Performed By: #### U [id number] #### [facility] (DEFAULT) [address] [place] [address] Non HDL Cholesterol 54 mg/dL Normal <130 [facility] Comment on above: Performed By: #### U [id number] #### [facility] (DEFAULT) [address] [place] [address] Total Cholesterol/HDL Ratio 2.5 Normal <4.5 [facility] Comment on above: Performed By: #### U [id number] #### [facility] (DEFAULT) [address] [place] [address] Triglyceride [Mass/Vol] 114 mg/dL Normal <150 [facility] Comment on above: Result Comment: [<15 0 mg/dL: Desirable] [150-199 mg/dL: Borderline] [200-499 mg/dL: High] [>500 mg/dL: Very High] Performed By: #### U [id number] #### [facility] (DEFAULT) [address] [place] [address] MAGNESIUMon 01-08-2022 Magnesium [Mass/Vol] 1.6 mg/dL Normal 1.6-2.6 [facility] Comment on above: Performed By: #### U [id number] #### [facility] (DEFAULT) [address] [address] PHOSPHATE, INORGANICon 01-08 Phosphorous 2.1 mg/dL Low 2.2-4.6 [facility] Comment on above: Performed By: #### U [id number] #### [facility] (DEFAULT) [address] [place] [address] PROTIME-INRon 01-08-2022 INR Coag (PPP) [Relative time] 1.3 {INR} High 0.9-1.1 [facility] Comment on above: Performed By: #### X M #### [facility] (DEFAULT) [address] [place] [address] PT Coag (PPP) [Time] 15.5 s High 11.9-14.2 [facility] Comment on above: Performed By: #### X M #### [facility] (DEFAULT) [address] [address] PT,INR,PTTon 01-08-2022 aPTT Coag (Bld) [Time] 27.3 s Normal 24.0-34.3 [facility] Comment on above: Performed By: #### T YPEC #### [facility] (DEFAULT) [address] [place] [address] INR Coag (PPP) [Relative time] 1.2 {INR} High 0.9-1.1 [facility] Comment on above: Performed By: #### T YPEC #### [facility] (DEFAULT) [address] [place] [address] PT Coag (PPP) [Time] 15.0 s High 11.9-14.2 [facility] Comment on above: Performed By: #### T YPEC #### [facility] (DEFAULT) [address] [place] [address] RAPID HIV-1/HIV-2 AB WITH P2 4 ANTIGENon 01-08-2022 Rapid HIV-1/HIV-2 AB Non-Reactive Normal Non Reactive [facility] Comment on above: Order Comment: Three serum separators are necessary for this test.Lab accession under [id number] Performed By: #### X M #### [facility] (DEFAULT) [address] [address] Rapid P24 Antigen Non-Reactive Normal Non Reactive Pri [facility] Comment on above: Order Comment: Three serum separators are necessary for this test.Lab accession under [id number] Performed By: #### X M #### [facility] (DEFAULT) [address] [place] [address] TYPE AND SCREENon 01-08-2022 ABO/RH(D) TYPE Positive Normal [facility] Comment on above: Performed By: #### X M #### [facility] (DEFAULT) [address] [place] [address] CBC W Auto Differential pane l (Bld)on 11-03-2021 Abs Immature Gran 0.04 k/uL <0.10 k/uL [facility] Basophils (Bld) [#/Vol] 0.04 10*3/uL <0.11 k/uL [facility] Basophils/100 WBC (Bld) 0.6 % [facility] Differential cell count method Nom (Bld) Auto [facility] Eosinophils (Bld) [#/Vol] 0.13 10*3/uL <0.46 k/uL [facility] Eosinophils/100 WBC (Bld) 1.8 % [facility] Erythrocyte distribution width (RBC) [Ratio] 14.6 % 11.5 - 15.0 % [facility] Hematocrit (Bld) [Volume fraction] 34.1 % Low 36.0 - 46.0 % [facility] Hemoglobin (Bld) [Mass/Vol] 10.7 g/dL Low 11.5 - 15.5 g/dL [facility] Immature Gran % 0.6 % [facility] Lymphocytes (Bld) [#/Vol] 2.16 10*3/uL 1.00 - 4.00 k/uL [facility] Lymphocytes/100 WBC (Bld) 30.0 % [facility] MCH (RBC) [Entitic mass] 30.6 pg 26.0 - 34.0 pg [facility] MCHC (RBC) [Mass/Vol] 31.4 g/dL 30.5 - 36.0 g/dL [facility] MCV (RBC) [Entitic vol] 97.4 fL 80.0 - 100.0 fL [facility] Monocytes (Bld) [#/Vol] 0.68 10*3/uL <0.87 k/uL [facility] Monocytes/100 WBC (Bld) 9.4 % C [facility] Neutrophils (Bld) [#/Vol] 4.15 10*3/uL 1.45 - 7.50 k/uL [facility] Neutrophils/100 WBC (Bld) 57.6 % [facility] Nucleated RBC (Bld) [#/Vol] 10*3/uL <0.01 k/uL [facility] Nucleated RBC/100 WBC (Bld) [Ratio] 0.0 /100 WBC [facility] Platelet mean volume (Bld) [Entitic vol] 10.4 fL 9.0 - 12.7 fL [facility] Platelets (Bld) [#/Vol] 267 10*3/uL 150 - 400 k/uL [facility] RBC (Bld) [#/Vol] 3.50 10*6/uL Low 3.90 - 5.2 0 m/uL [facility] WBC (Bld) [#/Vol] 7.20 10*3/uL 3.70 - 11. 00 k/uL [facility] CMP (EXTERNAL)on 10-10-2021 Albumin [Mass/Vol] 2.2 g/dL Abnormal 3.2 - 4.6 gm/dL [facility] Alk Phos Total 81 U/L 45 - 117 U/L [facility] ALT [Catalytic activity/Vol] 14 U/L 12 - 78 U/L [facility] AST [Catalytic activity/Vol] 10 U/L 8 - 37 U/L [facility] Bili Total 0.20 mg/dL 0.2 - 1 mg/dL [facility] Calcium [Mass/Vol] 8.7 mg/dL 8.5 - 10. 1 mg/dL [facility] Chloride [Moles/Vol] 103 mmol/L 98 - 10 7 MEQ/L [facility] CO2 [Moles/Vol] 37.0 mmol/L Abnormal 21 - 32 MEQ/L [facility] Creatinine [Mass/Vol] 0.068 mg/dL Abnormal 0.6 - 1.3 MG/DL [facility] GFR AFR AMER 110 mL/MIN [facility] GFR/1.73 sq M.predicted among non-blacks MDRD (S/P/Bld) [Vol rate/Area] 91 mL/min/{1.73_m2} [facility] Glucose [Mass/Vol] 112 mg/dL Abnormal 74 - 106 MG/DL [facility] Potassium [Moles/Vol] 3.6 mmol/L 3.5 - 5.1 mmol/L [facility] Protein [Mass/Vol] 5.9 g/dL Abnormal 6.4 - 8.2 gm/dL [facility] Sodium [Moles/Vol] 141 mmol/L 136 - 145 mmol/L [facility] Urea nitrogen [Mass/Vol] 7 mg/dL 7 - 18 MG/DL [facility] Calcium,Ionizedon 02-12-2017 Ionized Ca,Measured 4.60 mg/dL Normal 4.30-5.20 [facility] Comment on above: Performed By: #### H EMDF, ICA, RENL3, MG3, LFT3, TSH4, HIV4, HEPC ####[place] [address] pH, Ionized Calcium 7.43 Normal 7.31-7.46 [facility] Comment on above: Performed By: #### H EMDF, ICA, RENL3, MG3, LFT3, TSH4, HIV4, HEPC ####[place] [address] HIV 1,2 Ab; p24 Agon 017 HIV 1,2 Ab; p24 Ag NONREACTIVE Normal Nonreactive [facility] Comment on above: Result Comment: Resu lts obtained using the FDA cleared 4th generation HIVtest. This test detects antibodies to HIV1, HIV2, HIV Group O,and the presence of the HIV-1 p24 antigen. A Non-Reactive re-sult indicates the patient is negative for both HIV antibodyand HIV p24 antigen. All reactive results will undergo reflexconfirmation testing at an additional charge. Performed By: #### I CA, LFT3, BMP3, MG3, PT, APTT, PHOS3, CRP2, HEMDF ####[address] [address] Hemogram w/ Autodiffon 02-12 Abs Baso Cnt 0.1 10*3/uL Normal 0.0-0.2 [facility] Comment on above: Performed By: #### H EMDF, ICA, RENL3, MG3, LFT3, TSH4, HIV4, HEPC ####[address] [address] Basophils/100 WBC Auto (Bld) 0.5 % Normal [facility] Comment on above: Performed By: #### H EMDF, ICA, RENL3, MG3, LFT3, TSH4, HIV4, HEPC ####[address] [address] Eosinophils 0.3 10*3/uL Normal 0.0-0.5 [facility] Comment on above: Performed By: #### H EMDF, ICA, RENL3, MG3, LFT3, TSH4, HIV4, HEPC ####[address] [address] Eosinophils/100 leukocytes 2.4 % Normal [facility] Comment on above: Performed By: #### H EMDF, ICA, RENL3, MG3, LFT3, TSH4, HIV4, HEPC ####[address] [address] Erythrocyte distribution width Auto Ratio (RBC) 13.5 % Normal 11.5-14.5 [facility] Comment on above: Performed By: #### H EMDF, ICA, RENL3, MG3, LFT3, TSH4, HIV4, HEPC ####[address] [address] Erythrocytes (RBC) 4.84 10*6/uL Normal 3.80-5.20 [facility] Comment on above: Performed By: #### H EMDF, ICA, RENL3, MG3, LFT3, TSH4, HIV4, HEPC ####[address] [address] Granulocytes/100 WBC (Bld) 71.7 % Normal [facility] Comment on above: Performed By: #### H EMDF, ICA, RENL3, MG3, LFT3, TSH4, HIV4, HEPC ####[address] [address] Hematocrit (HCT) 43.2 % Normal 35.0-47.0 [facility] Comment on above: Performed By: #### H EMDF, ICA, RENL3, MG3, LFT3, TSH4, HIV4, HEPC ####[place] [address] Hemoglobin mass conc (Bld) 14.6 g/dL Normal 11.7-16.0 [facility] Comment on above: Performed By: #### H EMDF, ICA, RENL3, MG3, LFT3, TSH4, HIV4, HEPC ####[place] [address] Lymphocytes 1.8 10*3/uL Normal 1.0-4.3 [facility] Comment on above: Performed By: #### H EMDF, ICA, RENL3, MG3, LFT3, TSH4, HIV4, HEPC ####[place] [address] Lymphocytes/100 leukocytes 16.1 % Normal [facility] Comment on above: Performed By: #### H EMDF, ICA, RENL3, MG3, LFT3, TSH4, HIV4, HEPC ####[place] [address] MCH 30.1 pg Normal 26.0-34.0 [facility] Comment on above: Performed By: #### H EMDF, ICA, RENL3, MG3, LFT3, TSH4, HIV4, HEPC ####[place] [address] MCHC mass conc (RBC) 33.7 % Normal 32.0-36.0 [facility] Comment on above: Performed By: #### H EMDF, ICA, RENL3, MG3, LFT3, TSH4, HIV4, HEPC ####[place] [address] MCV 89.3 fL Normal 79.0-98.0 [facility] Comment on above: Performed By: #### H EMDF, ICA, RENL3, MG3, LFT3, TSH4, HIV4, HEPC ####[place] [address] Monocytes 1.0 10*3/uL High 0.0-0.8 [facility] Comment on above: Performed By: #### H EMDF, ICA, RENL3, MG3, LFT3, TSH4, HIV4, HEPC ####[address] [place] [address] Monocytes/100 leukocytes 9.3 % Normal [facility] Comment on above: Performed By: #### H EMDF, ICA, RENL3, MG3, LFT3, TSH4, HIV4, HEPC ####[address] [place] [address] Neutrophils 7.8 10*3/uL High 1.8-7.0 [facility] Comment on above: Performed By: #### H EMDF, ICA, RENL3, MG3, LFT3, TSH4, HIV4, HEPC ####[address] [address] Platelet mean volume (PMV) 8.5 fL Normal 7.4-10.4 [facility] Comment on above: Performed By: #### H EMDF, ICA, RENL3, MG3, LFT3, TSH4, HIV4, HEPC ####[address] [address] Platelets 242 10*3/uL Normal 140-440 [facility] Comment on above: Performed By: #### H EMDF, ICA, RENL3, MG3, LFT3, TSH4, HIV4, HEPC ####[address] [address] WBC (Leukocytes) 10.9 10*3/uL High 3.6-10.7 [facility] Comment on above: Performed By: #### H EMDF, ICA, RENL3, MG3, LFT3, TSH4, HIV4, HEPC ####[address] [address] Hep C Antibodyon 02-12-2017 Hep C Antibody NOT DETECTED Normal Not-Detected [facility] Comment on above: Result Comment: Emelia ents with DETECTED Hepatitis C Ab results should have a new specimensubmitted for supplemental testing with a Hepatitis C Quantitative RNA assay(viral load), if clinically indicated. Performed By: #### I CA, LFT3, BMP3, MG3, PT, APTT, PHOS3, CRP2, HEMDF ####[address] [address] Hepatic Functionon 7 Alkaline phosphatase (ALP) 64 U/L Normal 45-117 [facility] Comment on above: Performed By: #### H EMDF, ICA, RENL3, MG3, LFT3, TSH4, HIV4, HEPC ####[address] [address] Protein 7.2 g/dL Normal 6.4-8.2 [facility] Comment on above: Performed By: #### H EMDF, ICA, RENL3, MG3, LFT3, TSH4, HIV4, HEPC ####[address] [address] Alanine aminotransferase (ALT) 51 U/L Normal 12-78 [facility] Comment on above: Performed By: #### H EMDF, ICA, RENL3, MG3, LFT3, TSH4, HIV4, HEPC ####[address] [address] Bilirubin (total) 0.6 mg/dL Normal 0.2-1.0 [facility] Comment on above: Performed By: #### H EMDF, ICA, RENL3, MG3, LFT3, TSH4, HIV4, HEPC ####[address] [address] Aspartate aminotransferase (AST) 32 U/L Normal 15-37 [facility] Comment on above: Performed By: #### H EMDF, ICA, RENL3, MG3, LFT3, TSH4, HIV4, HEPC ####[address] [address] Bilirubin (direct) 0.2 mg/dL Normal 0.0-0.2 [facility] Comment on above: Performed By: #### H EMDF, ICA, RENL3, MG3, LFT3, TSH4, HIV4, HEPC ####[address] [address] Magnesiumon 08-11-2017 Magnesium 2.0 mg/dL Normal 1.8-2.4 [facility] Comment on above: Performed By: #### H EMDF, ICA, RENL3, MG3, LFT3, TSH4, HIV4, HEPC ####[place] [address] Renal Functionon 02-12-2017 Phosphate 2.2 mg/dL Low 2.5-4.9 [facility] Comment on above: Performed By: #### H EMDF, ICA, RENL3, MG3, LFT3, TSH4, HIV4, HEPC ####[place] [address] Anion gap 7 mmol/L Normal [facility] Comment on above: Performed By: #### H EMDF, ICA, RENL3, MG3, LFT3, TSH4, HIV4, HEPC ####[place] [address] Creatinine 0.58 mg/dL Normal 0.55-1.40 [facility] Comment on above: Performed By: #### H EMDF, ICA, RENL3, MG3, LFT3, TSH4, HIV4, HEPC ####[place] [address] eGFR (black) mL/min/{1.73_m2} Normal >60 [facility] Comment on above: Performed By: #### H EMDF, ICA, RENL3, MG3, LFT3, TSH4, HIV4, HEPC ####[place] [address] eGFR (non-black) mL/min/{1.73_m2} Normal >60 [facility] Comment on above: Result Comment: Sour ce- MDRD equation with creatinine calibration to IDMS(NKDEP)eGFR not recommended for drug dose adjustment Performed By: #### H EMDF, ICA, RENL3, MG3, LFT3, TSH4, HIV4, HEPC ####[place] [address] Albumin 3.4 g/dL Normal 3.4-5.0 [facility] Comment on above: Performed By: #### H EMDF, ICA, RENL3, MG3, LFT3, TSH4, HIV4, HEPC ####[address] [place] [address] Urea nitrogen 9 mg/dL Normal 7-25 [facility] Comment on above: Performed By: #### H EMDF, ICA, RENL3, MG3, LFT3, TSH4, HIV4, HEPC ####[address] [place] [address] Calcium 9.1 mg/dL Normal 8.2-10.1 [facility] Comment on above: Performed By: #### H EMDF, ICA, RENL3, MG3, LFT3, TSH4, HIV4, HEPC ####[address] [place] [address] Glucose mass conc 113 mg/dL High 70-100 [facility] Comment on above: Performed By: #### H EMDF, ICA, RENL3, MG3, LFT3, TSH4, HIV4, HEPC ####[address] [place] [address] CO2 30 mmol/L Normal 21-32 [facility] Comment on above: Performed By: #### H EMDF, ICA, RENL3, MG3, LFT3, TSH4, HIV4, HEPC ####[address] [place] [address] Chloride 104 mmol/L Normal 98-109 [facility] Comment on above: Performed By: #### H EMDF, ICA, RENL3, MG3, LFT3, TSH4, HIV4, HEPC ####[address] [place] [address] Potassium molar conc 3.6 mmol/L Normal 3.5-5.1 [facility] Comment on above: Performed By: #### H EMDF, ICA, RENL3, MG3, LFT3, TSH4, HIV4, HEPC ####[address] [place] [address] Sodium 141 mmol/L Normal 135-145 [facility] Comment on above: Performed By: #### H EMDF, ICA, RENL3, MG3, LFT3, TSH4, HIV4, HEPC ####[place] [address] Thyroid Stim. Hormoneon 02-02 Thyroid Stim. Hormone 3.390 uU/mL Normal 0.358-3.740 [facility] Comment on above: Performed By: #### I CA, LFT3, BMP3, MG3, PT, APTT, PHOS3, CRP2, HEMDF ####[place] [address] APTTon 02-11-2017 aPTT 23.3 s Normal 20.0-30.5 [facility] Comment on above: Result Comment: NOTE : The therapeutic time for Heparin anticoagulation,based on Xa activity inhibition, is an APTT of 46-80seconds. Performed By: #### I CA, LFT3, BMP3, MG3, PT, APTT, PHOS3, CRP2, HEMDF ####[place] [address] Basic Metabolic Panelon 02-02 Anion gap 5 mmol/L Normal [facility] Comment on above: Performed By: #### I CA, LFT3, BMP3, MG3, PT, APTT, PHOS3, CRP2, HEMDF ####[place] [address] Creatinine 0.64 mg/dL Normal 0.55-1.40 [facility] Comment on above: Performed By: #### I CA, LFT3, BMP3, MG3, PT, APTT, PHOS3, CRP2, HEMDF ####[place] [address] eGFR (black) mL/min/{1.73_m2} Normal >60 [facility] Comment on above: Performed By: #### I CA, LFT3, BMP3, MG3, PT, APTT, PHOS3, CRP2, HEMDF ####[place] [address] eGFR (non-black) mL/min/{1.73_m2} Normal >60 [facility] Comment on above: Result Comment: Sour ce- MDRD equation with creatinine calibration to IDMS(NKDEP)eGFR not recommended for drug dose adjustment Performed By: #### I CA, LFT3, BMP3, MG3, PT, APTT, PHOS3, CRP2, HEMDF ####[place] [address] Glucose mass conc 115 mg/dL High 70-100 [facility] Comment on above: Performed By: #### I CA, LFT3, BMP3, MG3, PT, APTT, PHOS3, CRP2, HEMDF ####[address] [address] Calcium 9.0 mg/dL Normal 8.2-10.1 [facility] Comment on above: Performed By: #### I CA, LFT3, BMP3, MG3, PT, APTT, PHOS3, CRP2, HEMDF ####[place] [address] CO2 30 mmol/L Normal 21-32 [facility] Comment on above: Performed By: #### I CA, LFT3, BMP3, MG3, PT, APTT, PHOS3, CRP2, HEMDF ####[address] [address] Urea nitrogen 8 mg/dL Normal 7-25 [facility] Comment on above: Performed By: #### I CA, LFT3, BMP3, MG3, PT, APTT, PHOS3, CRP2, HEMDF ####[address] [address] Chloride 105 mmol/L Normal 98-109 [facility] Comment on above: Performed By: #### I CA, LFT3, BMP3, MG3, PT, APTT, PHOS3, CRP2, HEMDF ####[address] [address] Potassium molar conc 3.4 mmol/L Low 3.5-5.1 [facility] Comment on above: Performed By: #### I CA, LFT3, BMP3, MG3, PT, APTT, PHOS3, CRP2, HEMDF ####[address] [place] [address] Sodium 140 mmol/L Normal 135-145 [facility] Comment on above: Performed By: #### I CA, LFT3, BMP3, MG3, PT, APTT, PHOS3, CRP2, HEMDF ####[address] [place] [address] C-Reactive Proteinon 017 C reactive protein (CRP) 6.9 mg/L High 0.0-2.9 [facility] Comment on above: Result Comment: . Performed By: #### I CA, LFT3, BMP3, MG3, PT, APTT, PHOS3, CRP2, HEMDF ####[address] [place] [address] CR Chest Portableon 02-12-20 17 CR Chest Portable Patient Name: LUIZA SERRATO Diagnostic Radiology Exam Date/Time 02/11/2017 06:40:48 EDT Exam CR Chest Portable Ordering Physician JAMES MCDONALD AMBER A Accession Number [id number] CPT4 Codes 93577 () Reason For Exam respiratory distress Report CHEST PORTABLE: Indication: 61-year-old; respiratory distress Views: Portable frontal Comparison: Prior day 02/10/2017 at 14:24 Time: 05:20 on 02/11/2017 FINDINGS: Cardiac monitoring wires and leads overlie the thorax limiting evaluation. The trachea is midline. The cardiomediastinal silhouette is within normal limits. No confluent consolidation present. Mild coarsening of interstitium. Underlying COPD changes suggested with flattening of the hemidiaphragms. IMPRESSION: No acute cardiopulmonary process. Report Dictated on Workstation: [id number] Dictated: 02/11/2017 5:39 am Dictating Physician: MD MURRIETA JENNIFER R Signed Date and Time: 02/11/2017 5:40 am Signed by: MD MURRIETA JENNIFER R Transcribed Date and Time: 02/11/2017 5:39 Normal [facility] Calcium,Ionizedon 02-11-2017 Ionized Ca,Measured 4.20 mg/dL Low 4.30-5.20 [facility] Comment on above: Performed By: #### I CA, LFT3, BMP3, MG3, PT, APTT, PHOS3, CRP2, HEMDF ####[place] [address] pH, Ionized Calcium 7.48 High 7.31-7.46 [facility] Comment on above: Performed By: #### I CA, LFT3, BMP3, MG3, PT, APTT, PHOS3, CRP2, HEMDF ####[place] [address] Hemoglobin A1Con 02-11-2017 Glucose mass conc 111 mg/dL Normal [facility] Comment on above: Performed By: #### L IPD2, HA1C2 ####[place] [address] Hemoglobin A1c/Hemoglobin.total mass fraction (Bld) 5.5 % Normal 4.0-5.6 [facility] Comment on above: Result Comment: --Hg bA1C levels may not be accurate in patients who haverenal disease, received recent blood transfusions, are anemic,or who have dyshemoglobinemia. Performed By: #### L IPD2, HA1C2 ####[place] [address] Hemogram w/ Autodiffon 02-11 Abs Baso Cnt 0.0 10*3/uL Normal 0.0-0.2 [facility] Comment on above: Performed By: #### I CA, LFT3, BMP3, MG3, PT, APTT, PHOS3, CRP2, HEMDF ####[place] [address] Basophils/100 WBC Auto (Bld) 0.5 % Normal [facility] Comment on above: Performed By: #### I CA, LFT3, BMP3, MG3, PT, APTT, PHOS3, CRP2, HEMDF ####[place] [address] Eosinophils 0.2 10*3/uL Normal 0.0-0.5 [facility] Comment on above: Performed By: #### I CA, LFT3, BMP3, MG3, PT, APTT, PHOS3, CRP2, HEMDF ####[place] [address] Eosinophils/100 leukocytes 2.0 % Normal [facility] Comment on above: Performed By: #### I CA, LFT3, BMP3, MG3, PT, APTT, PHOS3, CRP2, HEMDF ####[place] [address] Erythrocyte distribution width Auto Ratio (RBC) 13.9 % Normal 11.5-14.5 [facility] Comment on above: Performed By: #### I CA, LFT3, BMP3, MG3, PT, APTT, PHOS3, CRP2, HEMDF ####[place] [address] Erythrocytes (RBC) 4.77 10*6/uL Normal 3.80-5.20 [facility] Comment on above: Performed By: #### I CA, LFT3, BMP3, MG3, PT, APTT, PHOS3, CRP2, HEMDF ####[place] [address] Granulocytes/100 WBC (Bld) 67.3 % Normal [facility] Comment on above: Performed By: #### I CA, LFT3, BMP3, MG3, PT, APTT, PHOS3, CRP2, HEMDF ####[place] [address] Hematocrit (HCT) 42.5 % Normal 35.0-47.0 [facility] Comment on above: Performed By: #### I CA, LFT3, BMP3, MG3, PT, APTT, PHOS3, CRP2, HEMDF ####[place] [address] Hemoglobin mass conc (Bld) 14.2 g/dL Normal 11.7-16.0 [facility] Comment on above: Performed By: #### I CA, LFT3, BMP3, MG3, PT, APTT, PHOS3, CRP2, HEMDF ####[place] [address] Lymphocytes 1.9 10*3/uL Normal 1.0-4.3 [facility] Comment on above: Performed By: #### I CA, LFT3, BMP3, MG3, PT, APTT, PHOS3, CRP2, HEMDF ####[place] [address] Lymphocytes/100 leukocytes 19.0 % Normal [facility] Comment on above: Performed By: #### I CA, LFT3, BMP3, MG3, PT, APTT, PHOS3, CRP2, HEMDF ####[place] [address] MCH 29.8 pg Normal 26.0-34.0 [facility] Comment on above: Performed By: #### I CA, LFT3, BMP3, MG3, PT, APTT, PHOS3, CRP2, HEMDF ####[place] [address] MCHC mass conc (RBC) 33.5 % Normal 32.0-36.0 [facility] Comment on above: Performed By: #### I CA, LFT3, BMP3, MG3, PT, APTT, PHOS3, CRP2, HEMDF ####[place] [address] MCV 89.1 fL Normal 79.0-98.0 [facility] Comment on above: Performed By: #### I CA, LFT3, BMP3, MG3, PT, APTT, PHOS3, CRP2, HEMDF ####[place] [address] Monocytes 1.1 10*3/uL High 0.0-0.8 [facility] Comment on above: Performed By: #### I CA, LFT3, BMP3, MG3, PT, APTT, PHOS3, CRP2, HEMDF ####[place] [address] Monocytes/100 leukocytes 11.2 % Normal [facility] Comment on above: Performed By: #### I CA, LFT3, BMP3, MG3, PT, APTT, PHOS3, CRP2, HEMDF ####[address] [address] Neutrophils 6.7 10*3/uL Normal 1.8-7.0 [facility] Comment on above: Performed By: #### I CA, LFT3, BMP3, MG3, PT, APTT, PHOS3, CRP2, HEMDF ####[place] [address] Platelet mean volume (PMV) 8.9 fL Normal 7.4-10.4 [facility] Comment on above: Performed By: #### I CA, LFT3, BMP3, MG3, PT, APTT, PHOS3, CRP2, HEMDF ####[place] [address] Platelets 229 10*3/uL Normal 140-440 [facility] Comment on above: Performed By: #### I CA, LFT3, BMP3, MG3, PT, APTT, PHOS3, CRP2, HEMDF ####[place] [address] WBC (Leukocytes) 9.9 10*3/uL Normal 3.6-10.7 [facility] Comment on above: Performed By: #### I CA, LFT3, BMP3, MG3, PT, APTT, PHOS3, CRP2, HEMDF ####[place] [address] Hepatic Functionon 7 Alkaline phosphatase (ALP) 63 U/L Normal 45-117 [facility] Comment on above: Performed By: #### I CA, LFT3, BMP3, MG3, PT, APTT, PHOS3, CRP2, HEMDF ####[place] [address] Bilirubin (direct) 0.1 mg/dL Normal 0.0-0.2 [facility] Comment on above: Performed By: #### I CA, LFT3, BMP3, MG3, PT, APTT, PHOS3, CRP2, HEMDF ####[address] [address] Bilirubin (total) 0.4 mg/dL Normal 0.2-1.0 [facility] Comment on above: Performed By: #### I CA, LFT3, BMP3, MG3, PT, APTT, PHOS3, CRP2, HEMDF ####[address] [address] Protein 6.8 g/dL Normal 6.4-8.2 [facility] Comment on above: Performed By: #### I CA, LFT3, BMP3, MG3, PT, APTT, PHOS3, CRP2, HEMDF ####[address] [address] Alanine aminotransferase (ALT) 51 U/L Normal 12-78 [facility] Comment on above: Performed By: #### I CA, LFT3, BMP3, MG3, PT, APTT, PHOS3, CRP2, HEMDF ####[address] [address] Aspartate aminotransferase (AST) 25 U/L Normal 15-37 [facility] Comment on above: Performed By: #### I CA, LFT3, BMP3, MG3, PT, APTT, PHOS3, CRP2, HEMDF ####[address] [address] Albumin 3.2 g/dL Low 3.4-5.0 [facility] Comment on above: Performed By: #### I CA, LFT3, BMP3, MG3, PT, APTT, PHOS3, CRP2, HEMDF ####[address] [address] Lipid Panelon 02-11-2017 Cholesterol to HDL Ratio 3 {ratio} Normal [facility] Comment on above: Result Comment: Ref Range:< 3 Low Risk for CHD3-6 Mod Risk for CHD> 6 High Risk for CHD Performed By: #### L IPD2, HA1C2 ####[address] [place] [address] HDL Cholesterol 56 mg/dL Normal 40-59 [facility] Comment on above: Performed By: #### L IPD2, HA1C2 ####[address] [place] [address] Low Density Lipoprotein 89 mg/dL Normal <100 [facility] Comment on above: Performed By: #### L IPD2, HA1C2 ####[address] [place] [address] Cholesterol 167 mg/dL Normal < 200 [facility] Comment on above: Performed By: #### L IPD2, HA1C2 ####[address] [place] [address] Triglyceride 111 mg/dL Normal <150 [facility] Comment on above: Performed By: #### L IPD2, HA1C2 ####[address] [place] [address] Magnesiumon 02-11-2017 Magnesium 1.9 mg/dL Normal 1.8-2.4 [facility] Comment on above: Performed By: #### I CA, LFT3, BMP3, MG3, PT, APTT, PHOS3, CRP2, HEMDF ####[address] [place] [address] Phosphoruson 02-11-2017 Phosphate 2.1 mg/dL Low 2.5-4.9 [facility] Comment on above: Performed By: #### I CA, LFT3, BMP3, MG3, PT, APTT, PHOS3, CRP2, HEMDF ####[address] [place] [address] Prothrombin Timeon 201 7 INR Coag RelTime (PPP) 1.0 {INR} Normal 0.9-1.1 [facility] Comment on above: Result Comment: Jarvis mmended Anticoagulant Therapy:SEE BELOW----- INR of 2.0 - 3.0 :- Prophylaxis of Venous Thrombosis (high-risk surgery)- Treatment of Venous Thrombosis- Treatment of Pulmonary Embolism (Includes tissue heartvalves, Acute Myocardial Infarction to prevent systemicembolism, Valvular Heart Disease, and Atrial Fibrillation)----- INR of 2.5 - 3.5 :- Mechanical Prosthetic Valves (high risk)- If oral anticoagulant therapy is used to preventMyocardial Infarction Performed By: #### I CA, LFT3, BMP3, MG3, PT, APTT, PHOS3, CRP2, HEMDF ####[id number] Prothrombin time (PT) Coag time (PPP) 10.3 s Normal 9.0-12.0 [facility] Comment on above: Result Comment: . Performed By: #### I CA, LFT3, BMP3, MG3, PT, APTT, PHOS3, CRP2, HEMDF ####[address] [address] Surgical Pathologyon 017 Surgical Pathology [id number] [facility] PATHOLOGY AND LABORATORY MEDICINE [address] [place], [place] [id number] FINAL SURGICAL PATHOLOGY REPORT NAME: LUIZA MAY .O.B.: 1955 61 Y F BILLING NO.: [id number]: [id number] PROCEDURE 02/11/2017 DATE:SURGEON: SHELLY ISSA MD RECEIVED 02/11/2017 DATE:ATTENDING: SARAH CAMARGO M.D. REPORT DATE: 02/12/2017 COPIES TO: DIAGNOSIS:A. 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 COMMENT: Evaluation of the H Helicobacter pylori or any morphologic features to suggest infection with the organism; as such, further studies for Helicobacter are not indicated. There is no evidence of dysplasia or malignancy. Reference: Chaz HENDRIX et al. Appropriate use of special stains for identifying Helicobacter pylori: Recommendations from the [employer]. Am J Surg Pathol. 2013 Nov;37(11):e12-22.B. STOMACH BODY SUBMUCOSAL BULGE , BIOPSY - FRAGMENTS OF GASTRIC MUCOSA WITH NO SIGNIFICANT HISTOPATHOLOGIC CHANGES. NO SUBMUCOSAL TISSUE PRESENT FOR EVALUATION.SWINOMISH/KMS1 PUSHPA ORO M.D. CLINICAL INFORMATION:History of hematemesisSPECIMEN: (A) GASTRIC BIOPSY (B) GASTRIC BIOPSY GROSS DESCRIPTION:A. Stomach antrum biopsy rule out H pylori Received in formalin are two pieces of white read tissue that aggregateto 0.3 x 0.2 x 0.2 cm. The specimen is entirely submitted in onecassette. (2 ns, 1)B. Stomach body submucosal bulge rule out GIST Received in formalin are two pieces of light read tissue that aggregateto 0.3 x 0.2 x 0.2 cm. The specimen is entirely submitted in onecassette. (2 ns, 1) SWINOMISH/Radhamer: The following statement applies to allimmunohistochemistry , in situ hybridization, molecular studies, andimmunofluorescence testing.The use of one or more reagents in the above tests is regulated as ananalyte specific reagent (ASR). These tests were developed and theirperformance characteristics determined by the [facility]. They have not been cleared by the US Food and DrugAdministration (FDA). The FDA has determined that such clearance orapproval is not necessary.All the above immunostains were performed on paraffin embedded tissue.Appropriate positive and negative controls (where applicable) were runin parallel with the patient's specimen; these controls showed expectedstaining pattern, with acceptable intensity of staining.Immunohistoche mical assays have not been validated on decalcifiedtissues. Results should be interpreted with caution given the raisedpossibility of false negativity on decalcified specimens.Professional Performing Location: [facility] [address] [place] [address]. DEPARTMENT OF PATHOLOGY AND LABORATORY MEDICINE [place], [place] [address] Normal [facility] Comment on above: Performed By: #### I CA, LFT3, BMP3, MG3, PT, APTT, PHOS3, CRP2, HEMDF ####[facility] [place] [address] VL Venous Duplex US Lower Ex t Bilateralon 02-11-2017 Bilirubin (total) Patient Name: LUIZA SERRATO Ultrasound Exam Date/Time 02/11/2017 11:13:19 EDT Exam VL Venous Duplex US Lower Ext Bilateral Ordering Physician JAMES MCDONALD AMBER A Accession Number [id number] CPT4 Codes 87208 () Reason For Exam stroke Report [facility] ------ --- Lower Extremity Venous Duplex Report Patient Name: Luiza May : 1955 (61yrs) Study Date: 02/11/2017 Vesna Higgins Age: 61 Account: [id number] Gender: F Loc: T226 BP: Ordering: Lauryn Mcdonald Technologist: Ordering Physician: Lauryn Mcdonald Steam Clean Machine Operator: Elda Vaughn RVT Interpreting Physician: Severo Morgan MD ------ --- Location: [facility] INDICATIONS: Pain in limb. CVA - rt leg discomfort. ------ --- CONCLUSIONS 1. These findings show a below the knee deep vein thrombosis. If patient is not anticoagulated, may wish follow-up studies at 3, 10, and 30 days. ------ --- IMPRESSIONS: - Findings show acute deep vein thrombosis of the right soleal vein. - The superficial and deep systems of the left lower extremity appear to be free of thrombus. - These findings show a below the knee deep vein thrombosis. - If patient is not anticoagulated, may wish follow-up studies at 3, 10, and 30 days. ------ --- STUDY DATA: Complete lower extremity venous duplex evaluation. Birthdate: Patient birthdate: 1955. Age: Patient is 61 yr old. Sex: Gender: female. Ethnicity: Ethnicity: white. Doppler flow study including spectral analysis, color and wood scale imaging. Patient status: Inpatient. Procedure: A vascular evaluation was performed. The images were obtained using a Constant Contact E9 vascular ultrasound machine. ------ --- VENOUS FLOW AND IMAGING: + ----+-------+ + ------ --+ !Location !Overall!Thrombosis!Eric w properties ! + ----+-------+ + ------ --+ !Right common femoral !Patent ! !Normal phasicity; spontaneous;! ! ! ! !normal augmentation; ! ! ! ! !compressible ! + ----+-------+ + ------ --+ !Right saphenofemoral !Patent ! !Compressibl e ! !junction ! ! ! ! + ----+-------+ + ------ --+ !Right profunda femoral !Patent ! !Normal phasicity; spontaneous;! ! ! ! !normal augmentation ! + ----+-------+ + ------ --+ !R femoral proximal !Patent ! !Compressibl e ! + ----+-------+ + ------ --+ !R femoral mid !Patent ! !Normal phasicity; spontaneous;! ! ! ! !normal augmentation; ! ! ! ! !compressible ! + ----+-------+ + ------ --+ !R femoral distal !Patent ! !Compressibl e ! + ----+-------+ + ------ --+ !Right popliteal !Patent ! !Normal phasicity; spontaneous;! ! ! ! !normal augmentation; ! ! ! ! !compressible ! + ----+-------+ + ------ --+ !Right gastrocnemius !Patent ! !Compressibl e ! + ----+-------+ + ------ --+ !Right posterior tibial !Patent ! !Compressibl e ! + ----+-------+ + ------ --+ !Right peroneal !Patent ! !Compressibl e ! + ----+-------+ + ------ --+ !Right soleal !-------!Acute ! ------ --! + ----+-------+ + ------ --+ !Right greater saphenous !Patent ! !Compressibl e ! + ----+-------+ + ------ --+ !Left common femoral !Patent ! !Normal phasicity; spontaneous;! ! ! ! !normal augmentation; ! ! ! ! !compressible ! + ----+-------+ + ------ --+ !Left saphenofemoral !Patent ! !Compressibl e ! !junction ! ! ! ! + ----+-------+ + ------ --+ !Left profunda femoral !Patent ! !Normal phasicity; spontaneous;! ! ! ! !normal augmentation ! + ----+-------+ + ------ --+ !L femoral proximal !Patent ! !Compressibl e ! + ----+-------+ + ------ --+ !L femoral mid !Patent ! !Normal phasicity; spontaneous;! ! ! ! !normal augmentation; ! ! ! ! !compressible ! + ----+-------+ + ------ --+ !L femoral distal !Patent ! !Compressibl e ! + ----+-------+ + ------ --+ !Left popliteal !Patent ! !Normal phasicity; spontaneous;! ! ! ! !normal augmentation; ! ! ! ! !compressible ! + ----+-------+ + ------ --+ !Left gastrocnemius !Patent ! !Compressibl e ! + ----+-------+ + ------ --+ !Left posterior tibial !Patent ! !Compressibl e ! + ----+-------+ + ------ --+ !Left peroneal !Patent ! !Compressibl e ! + ----+-------+ + ------ --+ !Left soleal !Patent ! !Compressibl e ! + ----+-------+ + ------ --+ !Left greater saphenous !Patent ! !Compressibl e ! + ----+-------+ + ------ --+ Electronically signed by: Severo Morgan MD [id number] Final Dictated: 02/11/2017 11:45 am Dictating Physician: SEVERO MORGAN Signed Date and Time: 02/11/2017 11:45 am Signed by: SEVERO MORGAN [facility] CR Chest Portableon 02-11-20 17 CR Chest Portable Patient Name: LUIZA SERRATO Diagnostic Radiology Exam Date/Time 02/10/2017 15:12:27 EDT Exam CR Chest Portable Ordering Physician JAMES MCDONALD AMBER A Accession Number [id number] CPT4 Codes 32359 () Reason For Exam respiratory distress Report CLINICAL INFORMATION: Respiratory distress A portable frontal view of the chest was obtained. Comparison: April 27, 2006 Lungs appear hyperinflated. Mild basilar atelectatic changes. Mild chronic lung interstitial markings, similar to previous. The cardiovascular silhouette is within normal limits. Report Dictated on Final Dictated: 02/10/2017 3:30 pm Dictating Physician: JIL AMAYA Signed Date and Time: 02/10/2017 3:31 pm Signed by: JIL AMAYA Transcribed Date and Time: 02/10/2017 3:30 Normal [facility] Potassiumon 02-10-2017 Potassium molar conc 3.5 mmol/L Normal 3.5-5.1 [facility] Comment on above: Performed By: #### K 3 ####[address] [address] Vital Signs Date Time Vital Sign Value Performing Clinician Facility 02-23-2024 15:40-0400 Body temperature 98.4 [degF] Maryam Franco MD Work Phone: [facility] 02-23-2024 15:40-0400 Diastolic blood pressure 74 mm[Hg] Maryam Franco MD Work Phone: [facility] 02-23-2024 15:40-0400 Heart rate 101 /min Maryam Franco MD Work Phone: [facility] 02-23-2024 15:40-0400 Respiratory rate 18 /min Maryam Franco MD Work Phone: [facility] 02-23-2024 15:40-0400 SaO2% (BldA) [Mass fraction] 91 % Maryam Franco MD Work Phone: [facility] 02-23-2024 15:40-0400 Systolic blood pressure 120 mm[Hg] Maryam Franco MD Work Phone: [facility] 02-17-2024 15:22-0400 Body mass index (BMI) [Ratio] 22.04 kg/m2 Maryam Franco MD Work Phone: [facility] 02-17-2024 15:22-0400 Body weight 56.43 kg Maryam Franco MD Work Phone: [facility] 02-17-2024 15:22-0400 Diastolic blood pressure 60 mm[Hg] Maryam Franco MD Work Phone: [facility] 02-17-2024 15:22-0400 Heart rate 84 /min Maryam Franco MD Work Phone: [facility] 02-17-2024 15:22-0400 SaO2% (BldA) [Mass fraction] 92 % Maryam Franco MD Work Phone: [facility] 02-17-2024 15:22-0400 Systolic blood pressure 100 mm[Hg] Maryam Franco MD Work Phone: [facility] 02-13-2024 08:22-0400 SaO2% (BldA) [Mass fraction] 94 % Em Montes MD Work Phone: [facility] 02-13-2024 05:12-0400 Body temperature 97 [degF] Em Montes MD Work Phone: [facility] 02-13-2024 05:12-0400 Diastolic blood pressure 46 mm[Hg] mE Montes MD Work Phone: [facility] 02-13-2024 05:12-0400 Heart rate 103 /min Em Montes MD Work Phone: [facility] 02-13-2024 05:12-0400 Respiratory rate 18 /min Em Montes MD Work Phone: [facility] 02-13-2024 05:12-0400 Systolic blood pressure 96 mm[Hg] Em Montes MD Work Phone: [facility] 02-09-2024 11:05-0400 Body height 160 cm Em Montes MD Work Phone: [facility] 02-07-2024 06:00-0400 Body mass index (BMI) [Ratio] 22.86 kg/m2 Em Montes MD Work Phone: [facility] 02-07-2024 06:00-0400 Body weight 58.51 kg Em Montes MD Work Phone: [facility] 01-29-2024 21:11-0400 SaO2% (BldA) [Mass fraction] 28.0 % Em Montes MD Work Phone: [facility] 01-29-2024 13:49-0400 SaO2% (BldA) [Mass fraction] 95.1 % Em Montes MD Work Phone: [facility] 01-29-2024 06:34-0400 SaO2% (BldA) [Mass fraction] 97.6 % Em Montes MD Work Phone: [facility] 01-03-2024 14:04-0400 Body mass index (BMI) [Ratio] 22.85 kg/m2 Issa Herman MD Work Phone: [facility] 01-03-2024 14:04-0400 Body temperature 98.71 [degF] Issa Herman MD Work Phone: [facility] 01-03-2024 14:04-0400 Body weight 58.51 kg Issa Herman MD Work Phone: [facility] 01-03-2024 14:04-0400 Diastolic blood pressure 66 mm[Hg] Issa cantrell MD Work Phone: [facility] 01-03-2024 14:04-0400 Heart rate 76 /min Issa Herman MD Work Phone: [facility] 01-03-2024 14:04-0400 Respiratory rate 20 /min Issa Herman MD Work Phone: [facility] 01-03-2024 14:04-0400 SaO2% (BldA) [Mass fraction] 99 % Issa Herman MD Work Phone: [facility] 01-03-2024 14:04-0400 Systolic blood pressure 104 mm[Hg] Issa Herman MD Work Phone: [facility] 12-24-2023 13:42-0400 Body height 160 cm Dex Hdz MD Work Phone: [facility] 12-24-2023 13:42-0400 Body mass index (BMI) [Ratio] 23.03 kg/m2 Dex Hdz MD Work Phone: [facility] 12-24-2023 13:42-0400 Body temperature 97.9 [degF] Dex Hdz MD Work Phone: [facility] 12-24-2023 13:42-0400 Body weight 58.97 kg Dex Hdz MD Work Phone: [facility] 12-24-2023 13:42-0400 Heart rate 80 /min Dex Hdz MD Work Phone: [facility] 12-24-2023 13:42-0400 SaO2% (BldA) [Mass fraction] 90 % Dex Hdz MD Work Phone: [facility] Comment on above: 3L via [place] 12-02-2023 14:06-0400 Body height 160 cm Issa Herman MD Work Phone: [facility] 12-02-2023 14:06-0400 Body mass index (BMI) [Ratio] 23.1 kg/m2 Issa Herman MD Work Phone: [facility] 12-02-2023 14:06-0400 Body weight 59.15 kg Issa Herman MD Work Phone: [facility] 12-02-2023 14:06-0400 Diastolic blood pressure 60 mm[Hg] Issa cantrell MD Work Phone: [facility] 12-02-2023 14:06-0400 Heart rate 102 /min Issa Herman MD Work Phone: [facility] 12-02-2023 14:06-0400 SaO2% (BldA) [Mass fraction] 84 % Issa Herman MD Work Phone: [facility] 12-02-2023 14:06-0400 Systolic blood pressure 98 mm[Hg] Issa Herman MD Work Phone: [facility] 10-12-2023 15:22-0400 SaO2% (BldA) [Mass fraction] 93 % Charlene Henderson MD Work Phone: [facility] 10-12-2023 08:26-0400 Diastolic blood pressure 47 mm[Hg] Charlene Henderson MD Work Phone: [facility] 10-12-2023 08:26-0400 Heart rate 93 /min Charlene Henderson MD Work Phone: [facility] 10-12-2023 08:26-0400 Systolic blood pressure 98 mm[Hg] Charlene Henderson MD Work Phone: [facility] 10-12-2023 07:35-0400 Body temperature 98.01 [degF] Charlene Henderson MD Work Phone: [facility] 10-12-2023 07:35-0400 Respiratory rate 16 /min Charlene Henderson MD Work Phone: [facility] 10-11-2023 12:27-0400 Body height 157.5 cm Charlene Henderson MD Work Phone: [facility] 10-10-2023 22:01-0400 Body mass index (BMI) [Ratio] 28.62 kg/m2 Charlene Henderson MD Work Phone: [facility] 10-10-2023 22:01-0400 Body weight 71 kg Charlene Henderson MD Work Phone: [facility] 10-06-2023 03:55-0400 SaO2% (BldA) [Mass fraction] 99.4 % Charlene Henderson MD Work Phone: [facility] 10-05-2023 04:05-0400 SaO2% (BldA) [Mass fraction] 98.0 % Charlene Henderson MD Work Phone: [facility] 10-04-2023 03:52-0400 SaO2% (BldA) [Mass fraction] 98.9 % Charlene Henderson MD Work Phone: [facility] 10-03-2023 11:27-0400 SaO2% (BldA) [Mass fraction] 96.8 % Charlene Henderson MD Work Phone: [facility] 10-03-2023 09:51-0400 SaO2% (BldA) [Mass fraction] 94.4 % Charlene Henderson MD Work Phone: [facility] 10-02-2023 23:21-0400 SaO2% (BldA) [Mass fraction] 96.3 % Charlene Henderson MD Work Phone: [facility] 10-02-2023 21:13-0400 SaO2% (BldA) [Mass fraction] 98.8 % Charlene Henderson MD Work Phone: [facility] 09-28-2023 17:40-0400 SaO2% (BldA) [Mass fraction] 98.6 % Charlene Henderson MD Work Phone: [facility] 09-28-2023 12:22-0400 SaO2% (BldA) [Mass fraction] 99.9 % Charlene Henderson MD Work Phone: [facility] 09-23-2023 13:49-0400 Body weight 63.69 kg Joanie Denbow PA-C Work Phone: [facility] 09-23-2023 13:49-0400 Diastolic blood pressure 62 mm[Hg] Joanie Denbow PA-C Work Phone: [facility] 09-23-2023 13:49-0400 Heart rate 84 /min Joanie Denbow PA-C Work Phone: [facility] 09-23-2023 13:49-0400 Respiratory rate 14 /min Joanie Denbow PA-C Work Phone: [facility] 09-23-2023 13:49-0400 Systolic blood pressure 112 mm[Hg] Joanie Denbow PA-C Work Phone: [facility] 08-17-2023 08:41-0500 Diastolic blood pressure 58 mm[Hg] Joanie Denbow PA-C Work Phone: [facility] 08-17-2023 08:41-0500 Systolic blood pressure 89 mm[Hg] Joanie Denbow PA-C Work Phone: [facility] 08-17-2023 07:50-0500 Body temperature 97.3 [degF] Joanie Denbow PA-C Work Phone: [facility] 08-17-2023 07:50-0500 Body weight 63.05 kg Joanie Denbow PA-C Work Phone: [facility] 08-17-2023 07:50-0500 Heart rate 84 /min Joanie Denbow PA-C Work Phone: [facility] 08-17-2023 07:50-0500 Respiratory rate 16 /min Joanie Denbow PA-C Work Phone: [facility] 08-17-2023 07:50-0500 SaO2% (BldA) [Mass fraction] 95 % Joanie Denbow PA-C Work Phone: [facility] 08-07-2023 04:18-0500 SaO2% (BldA) [Mass fraction] 99 % [facility] Comment on above: Order Comment: Specimen Type: ARTERIAL B LOOD SPECIMENOrdering Facility: [facility] [place] [facility] Address: [address] [place] [address] Performed By: #### A LLBG ####[facility]ORY[facility] [id number] [place] [address] [place] 08-06-2023 22:11-0500 SaO2% (BldA) [Mass fraction] 96 % [facility] Comment on above: Order Comment: Specimen Type: ARTERIAL B LOOD SPECIMENOrdering Facility: [facility] [place] [facility] Address: [address] [place] [address] Performed By: #### A LLBG ####[facility] LABORATORYCLIA [id number] [place] [address] [facility] 08-06-2023 11:24-0500 SaO2% (BldA) [Mass fraction] 38 % [facility] Comment on above: Order Comment: Specimen Type: ARTERIAL B LOOD SPECIMENOrdering Facility: [facility] [place] [facility] Address: [address] [place] [address] Performed By: #### A LLBG ####[facility]ATORYCLIA [id number] [address] 08-06-2023 08:01-0500 SaO2% (BldA) [Mass fraction] 99 % [facility] Comment on above: Order Comment: Specimen Type: ARTERIAL B LOOD SPECIMENOrdering Facility: [facility] Address: [address] [place] [address] Performed By: #### A LLBG ####[facility]ORYCLIA [id number] [address] 08-06-2023 06:17-0500 SaO2% (BldA) [Mass fraction] 99 % [facility] Comment on above: Order Comment: Specimen Type: ARTERIAL B LOOD SPECIMENOrdering Facility: [facility] Address: [address] [place] [address] Performed By: #### A LLBG ####[facility]ORATORYCLIA [id number] [address] OF [facility] 03-25-2023 12:59-0400 Body weight 57.61 kg Joan Johnson APRN.AGRICULTURE WORKER Work Phone: [facility] 03-25-2023 12:59-0400 Diastolic blood pressure 80 mm[Hg] Joan Johnson APRNHelioAGRICULTURE WORKER Work Phone: [facility] 03-25-2023 12:59-0400 Heart rate 88 /min Joan Older L D RN.AGRICULTURE WORKER Work Phone: [facility] 03-25-2023 12:59-0400 Respiratory rate 16 /min Joan Older L D RN.AGRICULTURE WORKER Work Phone: [facility] 03-25-2023 12:59-0400 SaO2% (BldA) [Mass fraction] 95 % Joan Older L D RN.AGRICULTURE WORKER Work Phone: [facility] 03-25-2023 12:59-0400 Systolic blood pressure 124 mm[Hg] Joan Older L D RN.AGRICULTURE WORKER Work Phone: [facility] 02-05-2023 12:27-0400 Body height 160 cm Joanie Denbow PA-C Work Phone: [facility] 02-05-2023 12:27-0400 Body temperature 97.7 [degF] Joanie Denbow PA-C Work Phone: [facility] 02-05-2023 12:27-0400 Body weight 53.98 kg Joanie Denbow PA-C Work Phone: [facility] 02-05-2023 12:27-0400 Diastolic blood pressure 74 mm[Hg] Joanie Denbow PA-C Work Phone: [facility] 02-05-2023 12:27-0400 Heart rate 87 /min Joanie Denbow PA-C Work Phone: [facility] 02-05-2023 12:27-0400 Respiratory rate 12 /min Joanie Denbow PA-C Work Phone: [facility] 02-05-2023 12:27-0400 SaO2% (BldA) [Mass fraction] 96 % Joanie Denbow PA-C Work Phone: [facility] 02-05-2023 12:27-0400 Systolic blood pressure 128 mm[Hg] Joanie Denbow PA-C Work Phone: [facility] 11-13-2022 11:16-0400 Body temperature 98.6 [degF] Joan Older L D RN.AGRICULTURE WORKER Work Phone: [facility] 11-13-2022 11:16-0400 Body weight 54.43 kg Joan Older L D RN.AGRICULTURE WORKER Work Phone: [facility] 11-13-2022 11:16-0400 Diastolic blood pressure 84 mm[Hg] Joan Older L D RN.AGRICULTURE WORKER Work Phone: [facility] 11-13-2022 11:16-0400 Heart rate 76 /min Joan Older L D RN.AGRICULTURE WORKER Work Phone: [facility] 11-13-2022 11:16-0400 Respiratory rate 16 /min Joan Older L D RN.AGRICULTURE WORKER Work Phone: [facility] 11-13-2022 11:16-0400 SaO2% (BldA) [Mass fraction] 96 % Joan Older L D RN.AGRICULTURE WORKER Work Phone: [facility] 11-13-2022 11:16-0400 Systolic blood pressure 148 mm[Hg] Joan Older L D RN.AGRICULTURE WORKER Work Phone: [facility] 11-03-2022 14:03-0400 Body temperature 98.29 [degF] Maryam Franco MD Work Phone: [facility] 11-03-2022 14:03-0400 Body weight 52.16 kg Maryam Franco MD Work Phone: [facility] 11-03-2022 14:03-0400 Diastolic blood pressure 70 mm[Hg] Maryam Franco MD Work Phone: [facility] 11-03-2022 14:03-0400 Heart rate 73 /min Maryam Franco MD Work Phone: [facility] 11-03-2022 14:03-0400 Respiratory rate 16 /min Maryam Franco MD Work Phone: [facility] 11-03-2022 14:03-0400 SaO2% (BldA) [Mass fraction] 90 % Maryam Franco MD Work Phone: [facility] 11-03-2022 14:03-0400 Systolic blood pressure 122 mm[Hg] Maryam Franco MD Work Phone: [facility] 10-16-2022 09:58-0400 Body temperature 97.5 [degF] Joan Older L D RN.AGRICULTURE WORKER Work Phone: [facility] 10-16-2022 09:58-0400 Body weight 53.98 kg Joan Older L D RN.AGRICULTURE WORKER Work Phone: [facility] 10-16-2022 09:58-0400 Diastolic blood pressure 78 mm[Hg] Joan Older L D RN.AGRICULTURE WORKER Work Phone: [facility] 10-16-2022 09:58-0400 Heart rate 82 /min Joan Older L D RN.AGRICULTURE WORKER Work Phone: [facility] 10-16-2022 09:58-0400 Respiratory rate 16 /min Joan Older L D RN.AGRICULTURE WORKER Work Phone: [facility] 10-16-2022 09:58-0400 SaO2% (BldA) [Mass fraction] 95 % Joan Older L D RN.AGRICULTURE WORKER Work Phone: [facility] 10-16-2022 09:58-0400 Systolic blood pressure 138 mm[Hg] Joan Older L D RN.AGRICULTURE WORKER Work Phone: [facility] 10-01-2022 12:06-0400 Body temperature 97.59 [degF] Maryam Franco MD Work Phone: [facility] 10-01-2022 12:06-0400 Body weight 51.26 kg Maryam Franco MD Work Phone: [facility] 10-01-2022 12:06-0400 Diastolic blood pressure 80 mm[Hg] Maryam Franco MD Work Phone: [facility] 10-01-2022 12:06-0400 Heart rate 75 /min Maryam Franco MD Work Phone: [facility] 10-01-2022 12:06-0400 Respiratory rate 16 /min Maryam Franco MD Work Phone: [facility] 10-01-2022 12:06-0400 SaO2% (BldA) [Mass fraction] 93 % Maryam Franco MD Work Phone: [facility] 10-01-2022 12:06-0400 Systolic blood pressure 128 mm[Hg] Maryam Franco MD Work Phone: [facility] 08-19-2022 12:58-0500 Diastolic blood pressure 54 mm[Hg] Maryam Franco MD Work Phone: [facility] 08-19-2022 12:58-0500 Heart rate 108 /min Maryam Franco MD Work Phone: [facility] 08-19-2022 12:58-0500 Respiratory rate 20 /min Maryam Franco MD Work Phone: [facility] 08-19-2022 12:58-0500 SaO2% (BldA) [Mass fraction] 87 % Maryam Franco MD Work Phone: [facility] 08-19-2022 12:58-0500 Systolic blood pressure 92 mm[Hg] Maryam Franco MD Work Phone: [facility] 04-03-2022 14:11-0400 Body temperature 98.49 [degF] Pushpa Esquivel Jr., MD Work Phone: [facility] 04-03-2022 14:11-0400 Body weight 57.61 kg Pushpa Esquivel Jr., MD Work Phone: [facility] 04-03-2022 14:11-0400 Diastolic blood pressure 60 mm[Hg] Pushpa Esquivel Jr., MD Work Phone: [facility] 04-03-2022 14:11-0400 Heart rate 96 /min Pushpa Esquivel Jr., MD Work Phone: [facility] 04-03-2022 14:11-0400 Respiratory rate 18 /min Pushpa Esquivel Jr., MD Work Phone: [facility] 04-03-2022 14:11-0400 SaO2% (BldA) [Mass fraction] 96 % Pushpa Esquivel Jr., MD Work Phone: [facility] 04-03-2022 14:11-0400 Systolic blood pressure 108 mm[Hg] Pushpa Esquivel Jr., MD Work Phone: [facility] 03-26-2022 08:15-0400 Body weight 59.88 kg Joan Older L D RN.AGRICULTURE WORKER Work Phone: [facility] 03-26-2022 08:15-0400 Diastolic blood pressure 66 mm[Hg] Joan Older L D RN.AGRICULTURE WORKER Work Phone: [facility] 03-26-2022 08:15-0400 Heart rate 84 /min Joan Older L D RN.AGRICULTURE WORKER Work Phone: [facility] 03-26-2022 08:15-0400 Respiratory rate 16 /min Joan Older L D RN.AGRICULTURE WORKER Work Phone: [facility] 03-26-2022 08:15-0400 Systolic blood pressure 112 mm[Hg] Joan Older L D RN.AGRICULTURE WORKER Work Phone: [facility] 02-09-2022 07:47-0400 Body temperature 97.52 [degF] ANALY LAYTONATZLE DO [employer] 02-09-2022 07:47-0400 Diastolic blood pressure 66 mm[Hg] ANALY LAYTONATZLE DO [employer] 02-09-2022 07:47-0400 Heart rate 106 /min ANALY SCHEATZLE DO [facility] 02-09-2022 07:47-0400 Mean blood pressure 88 mm[Hg] ANALY LAYTONATZLE DO [employer] 02-09-2022 07:47-0400 Respiratory rate 18 /min ANALY LAYTONATZLE DO [facility] 02-09-2022 07:47-0400 Systolic blood pressure 132 mm[Hg] ANALY Elmore Sh[facility] 02-08-2022 22:16-0400 Body temperature 97.88 [degF] ANALY SCHEATZLE DO [facility] 02-08-2022 22:16-0400 Diastolic blood pressure 54 mm[Hg] ANALY SCHEATZLE DO [facility] 02-08-2022 22:16-0400 Heart rate 97 /min ANALY LAYTONATZLE DO [facility] 02-08-2022 22:16-0400 Mean blood pressure 73 mm[Hg] ANALY LAYTONATZLE DO [facility] 02-08-2022 22:16-0400 Respiratory rate 16 /min ANALY SCHEATZLE DO [facility] [place] 02-08-2022 22:16-0400 Systolic blood pressure 111 mm[Hg] ANALY LAYTONATZLE D O [facility] [place] 02-08-2022 16:32-0400 Body temperature 98.06 [degF] ANALY LAYTONATZLE DO [facility] 02-08-2022 16:32-0400 Diastolic blood pressure 62 mm[Hg] ANALY LAYTONATZLE DO [facility] [place] 02-08-2022 16:32-0400 Heart rate 102 /min ANALY SCHEATZLE DO [facility] [place] 02-08-2022 16:32-0400 Mean blood pressure 82 mm[Hg] ANALY LAYTONATZLE DO [facility] [place] 02-08-2022 16:32-0400 Respiratory rate 16 /min ANALY LAYTONATZLE DO [facility] [place] 02-08-2022 16:32-0400 Systolic blood pressure 122 mm[Hg] ANALY [place] [facility] 02-08-2022 07:56-0400 Body temperature 96.8 [degF] ANALY LAYTONATZLE DO [employer] 02-08-2022 07:56-0400 Heart rate 80 /min ANALY LAYTONATZLE DO [facility] 02-07-2022 15:54-0400 Reason For Taking VItal Signs ANALY LAYTONATZDE DO [facility] 02-07-2022 15:35-0400 Body weight 60 kg ANALY LAYTONATZDE DO [facility] 02-07-2022 08:54-0400 Reason For Taking VItal Signs ANALY LAYTONATZLE DO [facility] 02-06-2022 15:44-0400 Body temperature 97.52 [degF] ANALY LAYTONATZLE DO [facility] 02-06-2022 15:44-0400 Reason For Taking VItal Signs ANALY LAYTONATZLE DO [facility] 02-05-2022 15:33-0400 Body temperature 98.24 [degF] ANALY LAYTONATZLE DO [facility] 02-05-2022 15:33-0400 Heart rate 102 /min ANALY LAYTONATZDE DO [facility] 02-05-2022 08:12-0400 Heart rate 105 /min ANALY LAYTONATZLE DO [facility] 02-05-2022 06:17-0400 Body weight 59.1 kg ANALY LAYTONATZDE DO [facility] 01-30-2022 08:48-0400 Body weight 23.98 kg/m2 ANALY LARSON DO [facility] 01-28-2022 07:00-0400 Body weight 61.4 kg ANALY LARSON DO [facility] 01-27-2022 19:40-0400 Body height 160 cm ANALY LARSON DO [facility] 01-27-2022 19:40-0400 Body weight 25.23 kg/m2 ANALY LARSON DO [facility] 01-27-2022 15:21-0400 Body temperature 98.01 [degF] Pablo Barraza MD Work Phone: [facility] 01-27-2022 15:21-0400 Diastolic blood pressure 58 mm[Hg] Pablo elmore MD Work Phone: [facility] 01-27-2022 15:21-0400 Heart rate 100 /min Pablo Barraza MD Work Phone: [facility] 01-27-2022 15:21-0400 Respiratory rate 18 /min Pablo Barraza MD Work Phone: [facility] 01-27-2022 15:21-0400 SaO2% (BldA) [Mass fraction] 100 % Pablo Barraza MD Work Phone: [facility] 01-27-2022 15:21-0400 Systolic blood pressure 119 mm[Hg] Pablo Barraza MD Work Phone: [facility] 01-23-2022 14:51-0400 Body mass index (BMI) [Ratio] 24.71 kg/m2 Pablo Barraza MD Work Phone: [facility] 01-23-2022 14:51-0400 Body weight 63.28 kg Pablo Barraza MD Work Phone: [facility] 01-12-2022 12:46-0400 Body height 160 cm Pablo Barraza MD Work Phone: [facility] 12-23-2021 11:20-0400 Body height 160 cm Maryam Franco MD Work Phone: [facility] 12-23-2021 11:20-0400 Body temperature 97.59 [degF] Maryam Franco MD Work Phone: [facility] 12-23-2021 11:20-0400 Body weight 62.6 kg Maryam Franco MD Work Phone: [facility] 12-23-2021 11:20-0400 Diastolic blood pressure 70 mm[Hg] Maryam Franco MD Work Phone: [facility] 12-23-2021 11:20-0400 Heart rate 80 /min Maryam Franco MD Work Phone: [facility] 12-23-2021 11:20-0400 Respiratory rate 12 /min Maryam Franco MD Work Phone: [facility] 12-23-2021 11:20-0400 SaO2% (BldA) [Mass fraction] 91 % Maryam Franco MD Work Phone: [facility] 12-23-2021 11:20-0400 Systolic blood pressure 114 mm[Hg] Maryam Franco MD Work Phone: [facility] 11-03-2021 12:58-0400 Body height 160 cm Maryam Franco MD Work Phone: [facility] 11-03-2021 12:58-0400 Body temperature 97.81 [degF] Maryam Franco MD Work Phone: [facility] 11-03-2021 12:58-0400 Body weight 63.05 kg Maryam Franco MD Work Phone: [facility] 11-03-2021 12:58-0400 Diastolic blood pressure 62 mm[Hg] Maryam Franco MD Work Phone: [facility] 11-03-2021 12:58-0400 Heart rate 87 /min Maryam Franco MD Work Phone: [facility] 11-03-2021 12:58-0400 Respiratory rate 12 /min Maryam Franco MD Work Phone: [facility] 11-03-2021 12:58-0400 SaO2% (BldA) [Mass fraction] 93 % Maryam Franco MD Work Phone: [facility] 11-03-2021 12:58-0400 Systolic blood pressure 120 mm[Hg] Maryam Franco MD Work Phone: [facility] 10-08-2021 09:48-0400 Body temperature 96.91 [degF] Maryam Franco MD Work Phone: [facility] 10-08-2021 09:48-0400 Body weight 69.85 kg Maryam Franco MD Work Phone: [facility] 10-08-2021 09:48-0400 Diastolic blood pressure 64 mm[Hg] Maryam Franco MD Work Phone: [facility] 10-08-2021 09:48-0400 Heart rate 71 /min Maryam Franco MD Work Phone: [facility] 10-08-2021 09:48-0400 Respiratory rate 16 /min Maryam Franco MD Work Phone: [facility] 10-08-2021 09:48-0400 SaO2% (BldA) [Mass fraction] 92 % Maryam Franco MD Work Phone: [facility] 10-08-2021 09:48-0400 Systolic blood pressure 120 mm[Hg] Maryam Franco MD Work Phone: [facility] 09-07-2021 19:10-0500 Diastolic blood pressure 57 mm[Hg] BRAD THOMAS MD [facility] 03-06-2022 19:10-0500 Heart rate 78 /min BRAD THOMAS MD [facility] 09-07-2021 19:10-0500 Reason For Taking VItal Signs BRAD THOMAS MD [facility] 09-07-2021 19:10-0500 Respiratory rate 16 /min BRAD THOMAS MD [facility] 09-07-2021 19:10-0500 Systolic blood pressure 103 mm[Hg] BRAD West [facility] 09-07-2021 15:59-0500 Body temperature 97.16 [degF] BRAD THOMAS MD [facility] 09-07-2021 15:59-0500 Diastolic blood pressure 54 mm[Hg] BRAD THOMAS MD [facility] 09-07-2021 15:59-0500 Heart rate 88 /min BRAD THOMAS MD [facility] 09-07-2021 15:59-0500 Respiratory rate 18 /min BRAD THOMAS MD [facility] 09-07-2021 15:59-0500 Systolic blood pressure 99 mm[Hg] BRAD [facility] Encounters Encounter Date Encounter Type Care Provider Facility Start: 03-01-2024 End: 03-02-2024 ambulatory Maryam Franco MD Work Phone: [facility] Comment on above: Mental Status Change s Start: 02-28-2024 End: 02-28-2024 Refill Maryam Franco MD Work Phone: [facility] [place] Comment on above: Refill Request Start: 02-23-2024 End: 02-23-2024 Office outpatient visit 25 minutes Maryam Franco MD Work Phone: [facility] Comment on above: Chronic pain of righ t lower extremity (Primary Dx); Right leg pain; Restless legs; Anxiety Start: 02-23-2024 End: 02-23-2024 ambulatory [facility] Facility:[facility] Start: 02-22-2024 End: 02-25-2024 ambulatory Maryam Franco MD Work Phone: Internal Medicine [facility] Start: 02-17-2024 End: 02-17-2024 Office outpatient visit 25 minutes Maryam Franco MD Work Phone: [facility] Comment on above: Hospital discharge f ollow-up (Primary Dx); Decompensated heart failure (HCC); Traumatic subdural hemorrhage with loss of consciousness of unspecified duration, initial encounter (HCC); Malnutrition of mild degree (HCC); Right leg pain Start: 02-17-2024 End: 02-17-2024 ambulatory [facility] Facility:[facility] Start: 02-15-2024 Refill Maryam West Work Phone: [facility] [place] Comment on above: Refill Request Start: 02-11-2024 Telephone encounter Maryam france MD Work Phone: [facility] [place] Comment on above: Maritza Schaeffer [facility] nurse calling to set up home heal Start: 01-28-2024 End: 02-13-2024 Evaluation and management of inpatient Em Montes MD Work Phone: [facility] Respiratory Unit 7W Start: 01-25-2024 Refill Maryam West Work Phone: [facility] Comment on above: Refill Request Start: 01-24-2024 ambulatory Darien Barnard MA [facility] Start: 01-24-2024 Patient encounter procedure Darien Barnard MA [facility] Comment on above: Population Health Na vigation Outreach (Arlet Shelbyvipinshan Chandrika HackettEllyn [facility]) Start: 01-20-2024 Telephone encounter Maryam france MD Work Phone: [facility] Comment on above: [facility] Start: 01-19-2024 Telephone encounter Maryam france MD Work Phone: [facility] [place] Comment on above: Refill Request Start: 01-05-2024 Telephone encounter Dex Hdz MD Work Phone: General Surgery Comment on above: Patient Question Start: 01-04-2024 Telephone encounter Maryam france MD Work Phone: [facility] [place] Comment on above: Patient Update Appointment Start: 01-03-2024 End: 01-03-2024 ambulatory ISSA HERMAN Facility:[facility] Start: 01-03-2024 End: 01-03-2024 Patient encounter procedure Issa Herman MD Work Phone: [facility] [place] Comment on above: Tracheostomy in plac e (HCC) (Primary Dx); Anxiety; Chronic obstructive pulmonary disease, unspecified COPD type (HCC) Start: 12-30-2023 Telephone encounter Joan Johnson APRN.CNP Work Phone: [facility] [place] Comment on above: Switch rx to differe nt pharmacy Start: 12-29-2023 Refill Maryam West Work Phone: [facility] [place] Comment on above: Refill Request Start: 12-24-2023 End: 12-24-2023 Patient encounter procedure Dex Hdz MD Work Phone: General Surgery Comment on above: Chronic obstructive pulmonary disease, unspecified COPD type (HCC) (Primary Dx); 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); Malnutrition of mild degree (HCC) Refill Request Start: 12-24-2023 End: 12-24-2023 ambulatory DEX HDZ Facility:[facility] Start: 12-21-2023 Telephone encounter Issa steven MD Work Phone: [facility] Comment on above: Orders Start: 12-17-2023 Refill Maryam West Work Phone: [facility] [place] Comment on above: Refill Request Start: 12-16-2023 ambulatory Gagan Schuster RN Work Phone: [employer] Start: 12-13-2023 Telephone encounter Maryam france MD Work Phone: [facility] [place] Comment on above: Patient Update Start: 12-10-2023 ambulatory Gagan Schuster RN Work Phone: [employer] Comment on above: ACM DONOVAN RN ( ER vs [facility] on 12/06/23) Start: 12-09-2023 Refill Maryam West Work Phone: [facility] Comment on above: Refill Request Start: 12-03-2023 Telephone encounter Maryam france MD Work Phone: [facility] Comment on above: Home Health Point of Care Results; Medication Problem Start: 12-02-2023 End: 12-02-2023 ambulatory ISSA HERMAN Facility:[facility] Start: 12-02-2023 End: 12-02-2023 Patient encounter procedure Issa Herman MD Work Phone: [facility] [place] Comment on above: Tracheostomy in plac e (HCC) (Primary Dx); 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); Panlobular emphysema (HCC); Seizure-like activity (HCC); Insomnia, unspecified type Start: 11-26-2023 Telephone encounter Maryam france MD Work Phone: [facility] Comment on above: requesting medicatio n that is Refill Request Start: 11-23-2023 ambulatory [facility] Stoddard [facility] Start: 11-23-2023 Patient encounter procedure Rosalva Stoddard MA [facility] Comment on above: Population Health Na vigation Outreach ([facility]ice AWV/HCC and care gaps ) Start: 11-02-2023 Refill Maryam West Work Phone: [facility] Comment on above: Refill Request Start: 10-12-2023 End: 11-11-2023 ambulatory KAILEY TREVINO MD Facility:[facility] Start: 09-29-2023 Refill Joanie ROSENTHAL-C Work Phone: [facility] [place] Comment on above: Refill Request Start: 09-27-2023 Refill Maryam West Work Phone: [facility] [place] Comment on above: Refill Request Start: 09-26-2023 End: 09-26-2023 ambulatory [facility] Start: 09-26-2023 End: 10-12-2023 Evaluation and management of inpatient Charlene Henderson MD Work Phone: [facility] Respiratory Unit 7W Start: 09-23-2023 End: 09-23-2023 ambulatory JOANIE BENITEZ Facility:[facility] Start: 09-23-2023 End: 09-23-2023 Patient encounter procedure Joanie ROSENTHAL-C Work Phone: [facility] Comment on above: Insomnia, unspecifie d type (Primary Dx); Confusion; Subdural hematoma (HCC); RLS (restless legs syndrome); Anxiety Start: 09-21-2023 Telephone encounter Maryam france MD Work Phone: [facility] Comment on above: Refill Request; Miss ed Appointment Start: 09-13-2023 Refill Maryam West Work Phone: [facility] [place] Comment on above: Refill Request Start: 09-03-2023 Refill Maryam West Work Phone: [facility] [place] Comment on above: Refill Request Start: 08-19-2023 Refill Maryam West Work Phone: [facility] Comment on above: Refill Request Start: 08-19-2023 Refill Joanie ROSENTHAL-C Work Phone: [facility] Comment on above: Refill Request Start: 08-17-2023 End: 08-17-2023 ambulatory JOANIE BENITEZ Facility:[facility] Start: 08-17-2023 End: 08-17-2023 ambulatory JOANIE BENITEZ Facility:[facility] Start: 08-17-2023 End: 08-17-2023 Patient encounter procedure Joanie Benitez PA-C Work Phone: [facility] [place] Comment on above: Subdural hematoma (H CC) (Primary Dx); Status post fall; Occipital scalp laceration, sequela; Chronic obstructive pulmonary disease, unspecified COPD type (HCC); Hypotension, unspecified hypotension type Start: 08-11-2023 Patient Outreach Jordan Sousa mbulatory Care Management Comment on above: Transition Of Care ( TCM Initial outreach discharge 08/10/23) Start: 08-06-2023 Refill Maryam West Work Phone: [facility] Comment on above: Refill Request Start: 08-05-2023 End: 08-10-2023 Evaluation and management of inpatient ALI MALLAT Facility:[facility] Start: 07-14-2023 End: 07-14-2023 ambulatory LISE MAJOR Facility:[facility] Start: 06-11-2023 Refill Maryam West Work Phone: [facility] Comment on above: Refill Request Start: 06-10-2023 Telephone encounter Maryam france MD Work Phone: [facility] [place] Comment on above: Medication Request Start: 05-10-2023 Telephone encounter Maryam france MD Work Phone: [facility] [place] Comment on above: FYI-No Action Needed Results Start: 05-06-2023 End: 05-06-2023 ambulatory JOAN JOHNSON Facility:[facility] Start: 05-05-2023 Refill Joan Johnson APRN, .CNP Work Phone: [facility] [place] Comment on above: Refill Request; Refi ll Request Start: 05-04-2023 Refill Maryam West Work Phone: [facility] Comment on above: Refill Request Start: 04-26-2023 Refill Maryam West Work Phone: [facility] [place] Comment on above: Refill Request Start: 04-20-2023 Refill Sarah STAPLESAGRICULTURE WORKER Work Phone: [facility] Comment on above: Refill Request Start: 04-14-2023 Telephone encounter Joan Johnson APRN.AGRICULTURE WORKER Work Phone: [facility] Comment on above: Medication Problem Start: 04-12-2023 End: 04-12-2023 ambulatory [facility] Facility:[facility] Start: 04-07-2023 Refill Maryam West Work Phone: [facility] Comment on above: Refill Request Start: 03-26-2023 Telephone encounter Maryam france MD Work Phone: [facility] [place] Comment on above: Insurance Authorizat ion Start: 03-25-2023 End: 03-25-2023 Patient encounter procedure Joan Johnson APRN.AGRICULTURE WORKER Work Phone: [facility] Comment on above: Insomnia, unspecifie d type (Primary Dx); Anemia, unspecified type; Elevated liver enzymes; Mixed hyperlipidemia Start: 03-25-2023 End: 03-25-2023 [facility] Facility:[facility] Start: 03-09-2023 ambulatory Maryam West Work Phone: [facility] [place] Start: 03-04-2023 Refill Maryam West Work Phone: [facility] [place] Comment on above: Refill Request Start: 03-01-2023 Refill Maryam West Work Phone: [facility] [place] Comment on above: Refill Request Start: 02-15-2023 Refill Maryam West Work Phone: [facility] [place] Comment on above: Refill Request Start: 02-05-2023 End: 02-05-2023 Patient encounter procedure Joanie Benitez PA-C Work Phone: [facility] [place] Comment on above: Insomnia, unspecifie d type (Primary Dx) Start: 02-02-2023 Telephone encounter Maryam france MD Work Phone: Family [facility] Comment on above: Medication Request Refill Request Start: 01-06-2023 Refill Maryam West Work Phone: [facility] Comment on above: Refill Request Start: 11-13-2022 End: 11-13-2022 Patient encounter procedure Joan Johnson APRN.AGRICULTURE WORKER Work Phone: [facility] [place] Comment on above: History of recent ho spitalization (Primary Dx); Chronic obstructive pulmonary disease, unspecified COPD type (HCC); Insomnia, unspecified type; Anemia, unspecified type; Elevated liver enzymes; Medication monitoring encounter Start: 11-12-2022 Telephone encounter Maryam france MD Work Phone: [facility] [place] Comment on above: Residential Plan of Care Start: 11-10-2022 Telephone encounter Maryam france MD Work Phone: [facility] Comment on above: Speech Therapy Forms Start: 11-04-2022 Telephone encounter Maryam france MD Work Phone: Family [facility] Comment on above: Medication Update Start: 11-03-2022 End: 11-03-2022 Patient encounter procedure Maryam Franco MD Work Phone: [facility] [place] Comment on above: Chronic obstructive pulmonary disease, unspecified COPD type (HCC) (Primary Dx); Acute deep vein thrombosis (DVT) of distal vein of right lower extremity (HCC); Acute subdural hematoma (HCC); Seizure-like activity (HCC); Insomnia, unspecified type Start: 10-24-2022 Refill Maryam West Work Phone: [facility] Comment on above: Refill Request Start: 10-23-2022 Telephone encounter Maryam france MD Work Phone: [facility] Comment on above: Request Medication L ist Start: 10-22-2022 Telephone encounter Joan Johnson APRN.AGRICULTURE WORKER Work Phone: [facility] Comment on above: Results [facility] Update Start: 10-19-2022 Refill Maryam West Work Phone: [facility] Comment on above: Refill Request Start: 10-16-2022 Telephone encounter Joan Johnson APRN.AGRICULTURE WORKER Work Phone: [facility] [place] Comment on above: Medication Problem Start: 10-16-2022 End: 10-16-2022 Patient encounter procedure Joan Johnson APRN.AGRICULTURE WORKER Work Phone: [facility] Comment on above: History of recent ho spitalization (Primary Dx); Chronic obstructive pulmonary disease, unspecified COPD type (HCC); Chronic hypercapnic respiratory failure (HCC); Decompensated heart failure (HCC); RLS (restless legs syndrome); Generalized pain Start: 10-15-2022 Telephone encounter Maryam france MD Work Phone: [facility] Comment on above: Medication Request [facility] PT POC Start: 10-14-2022 Telephone encounter Maryam france MD Work Phone: [facility] Comment on above: home health asking f or verbal orders Start: 10-13-2022 Telephone encounter Maryam france MD Work Phone: [facility] [place] Comment on above: home health calling Start: 10-01-2022 End: 10-01-2022 Patient encounter procedure Maryam Franco MD Work Phone: [facility] Comment on above: Panlobular emphysema (HCC) (Primary Dx); Chronic obstructive pulmonary disease, unspecified COPD type (HCC); Chronic hypercapnic respiratory failure (HCC); Anxiety; Carcinoma in situ of left breast, unspecified type; Insomnia, unspecified type; Screening mammogram for breast cancer; Hemorrhagic stroke (HCC); Mixed hyperlipidemia; Sleep apnea, unspecified type Start: 09-24-2022 Telephone encounter Maryam france MD Work Phone: [facility] [place] Comment on above: Medication Problem Start: 09-21-2022 Refill Maryam West Work Phone: [facility] Comment on above: Refill Request Start: 09-01-2022 Telephone encounter Maryam france MD Work Phone: [facility] Comment on above: Insurance Authorizat ion Start: 08-20-2022 Telephone encounter Maryam france MD Work Phone: [facility] [place] Comment on above: Release Of Medical R ecords Start: 08-19-2022 End: 08-19-2022 Patient encounter procedure Maryam Franco MD Work Phone: [facility] [place] Comment on above: Hospital discharge f ollow-up (Primary Dx); Insomnia, unspecified type; Gastrojejunostomy tube status (HCC); Chronic obstructive pulmonary disease, unspecified COPD type (HCC); Chronic hypercapnic respiratory failure (HCC); Chronic pulmonary heart disease (HCC); Panlobular emphysema (HCC); Malnutrition of mild degree (HCC); Anxiety; S/P tracheoplasty Start: 08-18-2022 Refill Maryam West Work Phone: [facility] Comment on above: Refill Request Start: 08-05-2022 Telephone encounter Pushpa Esquivel MD Work Phone: Neurology Comment on above: Appointment Appointment (Needs r escheduled /) Start: 08-04-2022 End: 08-17-2022 ambulatory MARYAM FRANCO Facility:[id number] Start: 06-30-2022 ambulatory Maryam West Work Phone: Internal Medicine [facility] [place] Start: 05-15-2022 Refill Maryam West Work Phone: Internal Medicine [place] Comment on above: Refill Request Start: 04-03-2022 End: 04-03-2022 Patient encounter procedure Pushpa Esquivel MD Work Phone: Neurology Comment on above: Right leg numbness ( Primary Dx); Right leg weakness; Midline low back pain, unspecified chronicity, unspecified whether sciatica present; Compression fracture of T12 vertebra, sequela; History of subdural hematoma; History of stroke; Closed nondisplaced fracture of seventh cervical vertebra with routine healing, unspecified fracture morphology, subsequent encounter Start: 03-26-2022 End: 03-26-2022 Patient encounter procedure Joan Elizabeth [employer] WORKER Work Phone: Internal Medicine [place] Comment on above: Urinary tract infect ion without hematuria, site unspecified (Primary Dx); Fall, sequela; Closed nondisplaced fracture of seventh cervical vertebra, unspecified fracture morphology, sequela; Laceration of head without foreign body, unspecified part of head, sequela Start: 03-13-2022 Telephone encounter Maryam france MD Work Phone: Internal Medicine [place] Comment on above: Discharge from Start: 03-10-2022 Telephone encounter Maryam france MD Work Phone: Internal Medicine [place] Comment on above: Patient Update Start: 03-05-2022 Telephone encounter Maryam france MD Work Phone: [facility] Medicine [place] Comment on above: Results Start: 03-03-2022 Telephone encounter Maryam france MD Work Phone: Internal Medicine [place] Comment on above: ST missed visit this week with the patient Start: 02-19-2022 Telephone encounter Maryam france MD Work Phone: Internal Medicine [place] Comment on above: FYI-ST plan of care Start: 02-16-2022 Telephone encounter Maryam france MD Work Phone: Internal Medicine [place] Comment on above: [facility] HH/medicat ion request/verbal orders Start: 02-12-2022 Telephone encounter Maryam france MD Work Phone: Family Medicine [place] Comment on above: Patient Question Start: 02-03-2022 Telephone encounter Maryam france MD Work Phone: Family Medicine [place] Comment on above: Home Health Point of Care Results Start: 01-29-2022 Evaluation and manag ement of inpatient [facility] Facility:[facility] Start: 01-27-2022 End: 02-09-2022 Evaluation and management of inpatient ANALY LARSON DO Shanti Jaramillo Start: 01-27-2022 ambulatory Maryam West Work Phone: Internal Medicine [facility] [place] Start: 01-11-2022 ambulatory MARYAM FRANCO Facility :[facility] Start: 01-09-2022 End: 01-09-2022 ambulatory UNKNOWN PROVIDER Facility:[facility] Start: 01-08-2022 End: 01-27-2022 Evaluation and management of inpatient RADHA DAY Facility:[facility] Start: 01-08-2022 End: 01-27-2022 Evaluation and management of inpatient Pablo Barraza MD Work Phone: [id number] Start: 12-29-2021 ambulatory Maryam West Work Phone: Internal Medicine [place] Comment on above: Nurse Triage Call (c ongestion; coughing, wheezing; started on 12/28) Start: 12-23-2021 End: 12-23-2021 Patient encounter procedure Maryam Franco MD Work Phone: Internal Medicine [place] Comment on above: Anxiety (Primary Dx) ; Insomnia, unspecified type; Essential hypertension Start: 12-06-2021 End: 12-06-2021 Patient encounter procedure Pablo Bedoya APRN.CNP Work Phone: [facility] Comment on above: Procedure not jordan d out (Primary Dx) Start: 12-04-2021 Telephone encounter Maryam france MD Work Phone: Internal Medicine [place] Comment on above: Medication Problem; Medication Request Start: 11-22-2021 Refill Maryam West Work Phone: Family Medicine [place] Comment on above: Refill Request Start: 11-06-2021 Telephone encounter Maryam france MD Work Phone: Internal Medicine [place] Comment on above: Results Start: 11-03-2021 End: 11-03-2021 Patient encounter procedure Maryam Franco MD Work Phone: Internal Medicine [place] Comment on above: Congestive heart yevgeniy lure, unspecified HF chronicity, unspecified heart failure type (HCC) (Primary Dx); Pedal edema; Diastolic dysfunction; Chronic obstructive pulmonary disease, unspecified COPD type (HCC) Start: 10-23-2021 Refill Maryam West Work Phone: Internal Medicine [place] Comment on above: Refill Request Start: 10-16-2021 Telephone encounter Maryam france MD Work Phone: Internal Medicine [place] Comment on above: Appointment Start: 10-15-2021 Telephone encounter Maryam france MD Work Phone: [facility] Medicine [place] Comment on above: ECHO denied and canc elled Start: 10-13-2021 Telephone encounter Maryam france MD Work Phone: [facility] [place] Comment on above: Referral Request Start: 10-10-2021 Chart abstracting Maryam Franco MD Work Phone: Family Medicine [place] Comment on above: Refill Request Start: 10-08-2021 End: 10-08-2021 Patient encounter procedure Maryam Franco MD Work Phone: [facility] [place] Comment on above: GUME (acute kidney in jury) (HCC) (Primary Dx); Insomnia, unspecified type; Pedal edema; Impacted stool in intestine ([facility]); Hypervolemia, unspecified hypervolemia type; Congestive heart failure, unspecified HF chronicity, unspecified heart failure type ([facility]); Cardiomegaly Start: 09-29-2021 Telephone encounter Maryam france MD Work Phone: Internal Medicine [place] Comment on above: Home Health Orders Start: 09-07-2021 End: 09-07-2021 Emergency department patient visit BRAD THOMAS MD [facility] Start: 02-25-2018 Ambulatory [facility] Facility :[facility] Start: 08-19-2017 End: 08-19-2017 Ambulatory [facility] Facility:[facility] Start: 02-10-2017 Evaluation and manag ement of inpatient UNKNOWN PROVIDER [facility] Procedures Date Procedure Procedure Detail Performing Clinician Start: 02-12-2024 Us abdominal real ti me w/image limited Jil Roberts Start: 02-12-2024 Blood count complete auto&auto difrntl wbc Adriano Marr DO Work Phone: Start: 02-12-2024 Basic metabolic pane l calcium total Adriano Marr DO Work Phone: Start: 02-11-2024 Basic metabolic pane l calcium total Adriano Marr DO Work Phone: Start: 02-10-2024 Basic metabolic pane l calcium total Adriano Marr DO Work Phone: Start: 02-09-2024 Basic metabolic pane l calcium total Adriano Marr DO Work Phone: Start: 02-08-2024 Basic metabolic pane l calcium total Adriano Marr DO Work Phone: Start: 02-07-2024 Basic metabolic pane l calcium total Adriano Marr DO Work Phone: Start: 02-07-2024 Blood gases any comb ination ph pco2 po2 co2 hco3 Mildredphoenix Stanleyann DO Work Phone: Start: 02-07-2024 Radiologic exam ches t single view Mildred Stanleyann DO Work Phone: Start: 02-06-2024 Basic metabolic pane l calcium total Adriano Marr DO Work Phone: Start: 02-06-2024 Blood gases any comb ination ph pco2 po2 co2 hco3 Mildred Villafuerte DO Work Phone: Start: 02-05-2024 RESPIRATORY THERAPY COMMUNICATION ORDER Mildred Villafuerte DO Work Phone: Start: 02-05-2024 Ecg routine ecg w/le ast 12 lds trcg only w/o i&r Mildred Villafuerte DO Work Phone: Start: 02-05-2024 Blood gases any comb ination ph pco2 po2 co2 hco3 Mildred Villafuerte DO Work Phone: Start: 02-05-2024 Basic metabolic pane l calcium total Adriano Marr DO Work Phone: Start: 02-04-2024 Blood gases any comb ination ph pco2 po2 co2 hco3 Estela Hurst DO Work Phone: Start: 02-04-2024 Basic metabolic pane l calcium total Adriano Marr DO Work Phone: Start: 02-03-2024 Basic metabolic pane l calcium total Adriano Marr DO Work Phone: Start: 02-03-2024 Blood gases any comb ination ph pco2 po2 co2 hco3 Oleg Dougherty MD Work Phone: Start: 02-02-2024 Radiologic exam ches t single view Mildred Villafuerte DO Work Phone: Start: 02-02-2024 Blood gases any comb ination ph pco2 po2 co2 hco3 Radha Spence DO Work Phone: Start: 02-02-2024 Blood gases any comb ination ph pco2 po2 co2 hco3 Mildred Villafuerte DO Work Phone: Start: 02-02-2024 Drug screen quantita tive vancomycin Alayna Gaxiola MD Work Phone: Start: 02-01-2024 Ecg routine ecg w/le ast 12 lds trcg only w/o i&r Oleg Dougheryt MD Work Phone: Start: 02-01-2024 RESPIRATORY THERAPY COMMUNICATION ORDER Radha Spence DO Work Phone: Start: 02-01-2024 End: 02-02-2024 Basic metabolic panel calcium total Adriano Marr DO Work Phone: Start: 02-01-2024 Blood gases any comb ination ph pco2 po2 co2 hco3 Radha Spence DO Work Phone: Start: 01-31-2024 Blood gases any comb ination ph pco2 po2 co2 hco3 Oleg Dougherty MD Work Phone: Start: 01-31-2024 Ct head/brain w/o co ntrast material Radha Spence DO Work Phone: Start: 01-31-2024 Blood gases any comb ination ph pco2 po2 co2 hco3 Radha Spence DO Work Phone: Start: 01-31-2024 Basic metabolic pane l calcium total Adriano Marr DO Work Phone: Start: 01-31-2024 Blood gases any comb ination ph pco2 po2 co2 hco3 Bjorn Ford MD Work Phone: Start: 01-31-2024 Drug screen quantita tive vancomycin Alayna Gaxiola MD Work Phone: Start: 01-30-2024 Glucose quantitative blood xcpt reagent strip Alayna Gaxiola MD Work Phone: Start: 01-30-2024 Blood gases any comb ination ph pco2 po2 co2 hco3 Adriano Marr DO Work Phone: Start: 01-30-2024 Drug screen quantita tive vancomycin Alayna Gaxiola MD Work Phone: Start: 01-30-2024 Blood gases any comb ination ph pco2 po2 co2 hco3 Bjorn Ford MD Work Phone: Start: 01-30-2024 Artl cathj/cannulj mntr/transfusion spx prq Bjorn Ford MD Work Phone: Start: 01-29-2024 Blood gases any comb ination ph pco2 po2 co2 hco3 Bjorn Ford MD Work Phone: Start: 01-29-2024 Blood gases any comb ination ph pco2 po2 co2 hco3 Adriano Marr DO Work Phone: Start: 01-29-2024 Radiologic exam ches t single view Noreen Castro MD Work Phone: Start: 01-29-2024 Insj non-tunneled ce ntral venous cath age 4 yr/> Noreen Castro MD Work Phone: Start: 01-29-2024 Blood gases any comb ination ph pco2 po2 co2 hco3 Adriano Marr DO Work Phone: Start: 01-29-2024 25 hydroxy includes fractions if performed Adriano Marr DO Work Phone: Start: 01-29-2024 End: 01-30-2024 Blood gases any combination ph pco2 po2 co2 hco3 Alayna Gaxiola MD Work Phone: Start: 01-29-2024 End: 01-30-2024 Basic metabolic panel calcium total Alayna Gaxiola MD Work Phone: Start: 01-28-2024 Bacteria identified in Blood by Culture Alayna Gaxiola MD Work Phone: Start: 01-28-2024 Comprehensive metabolic panel Alayna Gaxiola MD Work Phone: Start: 01-28-2024 Radiologic exam ches t single view Alayna Gaxiola MD Work Phone: Start: 01-28-2024 Respiratory pathogen s DNA and RNA panel - Nasopharynx by MERISSA with non-probe detection Alayna Gaxiola MD Work Phone: Start: 01-28-2024 End: 01-28-2024 Smr prim src gram/giemsa stain bct fungi/cell Alayna Gaxiola MD Work Phone: Start: 01-28-2024 Bacteria identified in Blood by Culture Alayna Gaxiola MD Work Phone: Start: 01-28-2024 Blood gases, venous measurement Alayna Gaxiola MD Work Phone: Start: 01-28-2024 End: 01-28-2024 Assay of magnesium Katina Sosa DO Work Phone: Start: 01-28-2024 Drug screen quantita tive phenytoin total Katina Sosa DO Work Phone: Start: 10-12-2023 Basic metabolic pane l calcium total Pablo Lama L D RN - AGRICULTURE WORKER Work Phone: Start: 10-11-2023 Basic metabolic pane l calcium total Pablo Lama L D RN - AGRICULTURE WORKER Work Phone: Start: 10-10-2023 Radiologic exam abdomen 1 view Christophe Leisar DO Work Phone: Start: 10-10-2023 Basic metabolic pane l calcium total Pablo Lama L D RN - AGRICULTURE WORKER Work Phone: Start: 10-09-2023 Basic metabolic pane l calcium total Pablo Lama L D RN - AGRICULTURE WORKER Work Phone: Start: 10-08-2023 Glucose quantitative blood xcpt reagent strip Christophe Irwin DO Work Phone: Start: 10-08-2023 Glucose quantitative blood xcpt reagent strip Chirstophe Irwin DO Work Phone: Start: 10-08-2023 End: 10-08-2023 Basic metabolic panel calcium total Pablo Lama L D RN - AGRICULTURE WORKER Work Phone: Start: 10-07-2023 Blood count hematocrit Pablo Lama L D RN - AGRICULTURE WORKER Work Phone: Start: 10-07-2023 Blood gases any comb ination ph pco2 po2 co2 hco3 Marisela Fernandez MD Start: 10-07-2023 Radiologic exam ches t single view Lauryn Acierno L D RN - AGRICULTURE WORKER Work Phone: Start: 10-07-2023 Basic metabolic pane l calcium total Pablo Lama L D RN - AGRICULTURE WORKER Work Phone: Start: 10-06-2023 Ecg routine ecg w/le ast 12 lds trcg only w/o i&r Lauryn Acierno L D RN - AGRICULTURE WORKER Work Phone: Start: 10-06-2023 Blood gases any comb ination ph pco2 po2 co2 hco3 Aluryn Acierno L D RN - AGRICULTURE WORKER Work Phone: Start: 10-06-2023 Basic metabolic pane l calcium total Pablo Lama L D RN - AGRICULTURE WORKER Work Phone: Start: 10-05-2023 Tracheobrnchsc thru est trachs inc Tolu Soto DO Work Phone: Start: 10-05-2023 Radiologic exam ches t single view Mildred Villafuerte DO Work Phone: Start: 10-05-2023 Blood count hematocrit Lauryn Acierno L D RN - AGRICULTURE WORKER Work Phone: Start: 10-05-2023 Compatibility each u nit electronic Lauryn Acierno L D RN - AGRICULTURE WORKER Work Phone: Start: 10-05-2023 End: 10-05-2023 TRANSFUSE RED BLOOD CELLS Lauryn Mcdonald L D RN [employer] [facility] Work Phone: Start: 10-05-2023 Radiologic exam ches t single view Lauryn Mcdonald [facility] Work Phone: Start: 10-05-2023 Basic metabolic pane l calcium total Pablo Lama [facility] [employer] [facility] Work Phone: Start: 10-05-2023 Radiologic exam abdomen 1 view Lauryn Mcdonald [facility] [employer] [facility] Work Phone: Start: 10-05-2023 Blood gases any comb ination ph pco2 po2 co2 hco3 Lauryn Mcdonald [facility] Work Phone: Start: 10-04-2023 End: 10-04-2023 Egd percutaneous placement gastrostomy tube Seth Muller MD Work Phone: Start: 10-04-2023 End: 10-04-2023 Tracheostomy planned separate procedure Seth Muller MD Work Phone: Start: 10-04-2023 Blood count hematocrit Elijah Tyler MD Work Phone: Start: 10-04-2023 Antibody screen PCP NON E Comment on above: Performed By: #### L [id number] ####Dental Therapist: ROSALVA LOPEZ ([id number])[facility] ([address] Start: 10-04-2023 ABO and Rh group [Ty pe] in Blood by Confirmatory method Des Sutton MD Work Phone: Start: 10-04-2023 Blood typing serologic rh (d) Des Sutton MD Work Phone: Start: 10-04-2023 Radiologic exam ches t single view Mildred Smith [facility] Work Phone: Start: 10-04-2023 Basic metabolic pane l calcium total Pablo Lars Lama [facility] [employer] [facility] Work Phone: Start: 10-04-2023 Blood gases any comb ination ph pco2 po2 co2 hco3 Mildred Smith L D RN - [facility] Work Phone: Start: 10-03-2023 Ecg routine ecg w/le ast 12 lds trcg only w/o i&r Mildred Smith L D RN - [facility] Work Phone: Start: 10-03-2023 Assay of thyroid sti mulating hormone tsh Mildred Smith L D RN - [facility] Work Phone: Start: 10-03-2023 Smr prim src gram/gi emsa stain bct fungi/cell Mildred Smith L D RN - [facility] Work Phone: Start: 10-03-2023 Blood gases any comb ination ph pco2 po2 co2 hco3 Mildred Smith L D RN - [facility] Work Phone: Start: 10-03-2023 Radiologic exam ches t single view Mildred Smith L D RN - [facility] Work Phone: Start: 10-03-2023 Radiologic exam abdomen 1 view Mildred Smith L D RN - [facility] Work Phone: Start: 10-03-2023 Intubation endotrach eal emergency procedure Mildred Smith L D RN - [facility] Work Phone: Start: 10-03-2023 Blood gases any comb ination ph pco2 po2 co2 hco3 Mildred Smith L D RN - [facility] Work Phone: Start: 10-03-2023 Radiologic exam abdomen 1 view Mildred Smith L D RN - [facility] Work Phone: Start: 10-03-2023 Basic metabolic pane l calcium total Pablo Lama [facility] Work Phone: Start: 10-02-2023 Blood gases any comb ination ph pco2 po2 co2 hco3 Elijah Tyler MD Work Phone: Start: 10-02-2023 Blood gases any comb ination ph pco2 po2 co2 hco3 Elijah Tyler MD Work Phone: Start: 10-02-2023 EXTUBATION Mildred Srivastava donovan [facility] [employer] [facility] Work Phone: Start: 10-02-2023 Radiologic exam ches t single view Mildred Smith L D RN - [employer] WORK[employer] Work Phone: Start: 10-02-2023 Radiologic exam abdomen 1 view Mildred Smith L D RN - A[employer]IC[employer]URE WORKER Work Phone: Start: 10-02-2023 Basic metabolic pane l calcium total Pablo Lama L D RN - A[employer]ICULTURE WORKER Work Phone: Start: 10-01-2023 Ct abdomen & pelvis w/o contrast material Mildred Smith L D RN - A[employer]ICULTURE WORKER Work Phone: Start: 10-01-2023 Radiologic exam abdomen 1 view Mildred Smith L D RN - [employer] WORKER Work Phone: Start: 10-01-2023 Radiologic exam ches t single view Mildred Smith L D RN - A[employer]IC[employer] WORKER Work Phone: Start: 10-01-2023 Basic metabolic pane l calcium total Pablo Lama L D RN - A[employer]ICULTURE WORKER Work Phone: Start: 09-30-2023 Radiologic exam ches t single view Elijah Tyler MD Work Phone: Start: 09-30-2023 Procalcitonin (pct) Hugh Smith L D RN - [employer]ICULTURE WORKER Work Phone: Start: 09-30-2023 Blood gases any comb ination ph pco2 po2 co2 hco3 Elijah Tyler MD Work Phone: Start: 09-30-2023 Basic metabolic pane l calcium total Pablo Lama L D RN - A[employer]ICULTURE WORKER Work Phone: Start: 09-29-2023 Blood gases any comb ination ph pco2 po2 co2 hco3 Mildred Smith L D RN - A[employer]ICULTURE WORKER Work Phone: Start: 09-29-2023 Radiologic exam ches t single view Mildred Smith L D RN - A[employer]ICULTURE WORKER Work Phone: Start: 09-29-2023 Basic metabolic pane l calcium total Pablo Lama L D RN - A[employer]ICULTURE WORKER Work Phone: Start: 09-29-2023 Manual Differential panel - Blood Yuridia Pierre DO Work Phone: Start: 09-28-2023 Blood gases any comb ination ph pco2 po2 co2 hco3 Mildred Smith [facility] Work Phone: Start: 09-28-2023 Ecg routine ecg w/le ast 12 lds trcg only w/o i&r Mildred Smith [facility] Work Phone: Start: 09-28-2023 Radiologic exam ches t single view Severo Hurst DO Work Phone: Start: 09-28-2023 Blood gases any comb ination ph pco2 po2 co2 hco3 Yanet Aguilar MD Work Phone: Start: 09-28-2023 Intubation endotrach eal emergency procedure Mildred Smith [facility] Work Phone: Start: 09-28-2023 TTE w or wo fol wcon,Doppler Emma Nice [facility] Work Phone: Start: 09-28-2023 Comprehensive metabolic panel Pablo Lama [facility] Work Phone: Start: 09-27-2023 Mri brain brain stem w/o w/contrast material Emma Nice [facility] Work Phone: Start: 09-27-2023 Assay of phosphorus inorganic Mildred Smith [facility] Work Phone: Start: 09-27-2023 Radiologic examinati on pelvis 1/2 views Leobardo Corbin MD Work Phone: Start: 09-27-2023 Radiologic exam ches t single view Mildred Smith [facility] Work Phone: Start: 09-27-2023 End: 09-27-2023 Bacteria identified in Blood by Culture Mildred Smith [facility] Work Phone: Start: 09-27-2023 Assay of lactate Mary Smith [facility] Work Phone: Start: 09-27-2023 Respiratory pathogen s DNA and RNA panel - Nasopharynx by MERISSA with non-probe detection Mildred Smith [facility] Work Phone: Start: 09-27-2023 Blood gases any comb ination ph pco2 po2 co2 hco3 Yanet Aguilar MD Work Phone: Start: 09-27-2023 End: 09-27-2023 Smr prim src gram/giemsa stain bct fungi/cell Mildred Smith [facility] Work Phone: Start: 09-27-2023 Comprehensive metabolic panel Pablo Lama [facility] Work Phone: Start: 09-27-2023 Drug screen quantita tive phenytoin total Chester Fling DO Work Phone: Start: 09-27-2023 Ct angiography chest w/contrast/noncontrast Yuridia Ignacio DO Work Phone: Start: 09-27-2023 Ct head/brain w/o co ntrast material Chester Fling DO Work Phone: Start: 09-26-2023 Electroencephalogram w/rec awake&drowsy Chester Fling DO Work Phone: Start: 09-26-2023 End: 09-26-2023 Basic metabolic panel calcium total Pablo Lama [facility] Work Phone: Start: 09-26-2023 Drug screen quantita tive phenytoin total Yuridia Ignacio DO Work Phone: Start: 09-26-2023 ETHYL GLUCURONIDE SC REEN, URINE Yuridia Ignacio DO Work Phone: Start: 09-26-2023 MEDICATION ASSISTED TREATMENT PANEL Yuridia Ignacio DO Work Phone: Start: 09-26-2023 Urinalysis complete panel - Urine Yuridia Ignacio DO Work Phone: Start: 09-26-2023 Urnls dip stick/tabl et reagent auto microscopy Yuridia Ignacio DO Work Phone: Start: 09-26-2023 Blood gases any comb ination ph pco2 po2 co2 hco3 Yuridia Ignacio DO Work Phone: Start: 09-26-2023 Ecg routine ecg w/le ast 12 lds trcg only w/o i&r Yuridia Pierre DO Work Phone: Start: 09-26-2023 Radiologic exam abdomen 1 view Yuridia Pierre DO Work Phone: Start: 09-26-2023 Radiologic exam ches t single view Yuridia Pierre DO Work Phone: Start: 09-23-2023 Culture bacterial qu anttative colony count urine Joanie [employer] Work Phone: Start: 09-23-2023 Drug tst prsmv instr mnt chem analyzers pr date [employer] Work Phone: Start: 09-23-2023 Urnls dip stick/tabl et rgnt auto w/o microscopy [employer] Work Phone: Start: 08-05-2023 Antibody screen ALI MAL LAT Comment on above: Order Comment: Speci men Type: BLOOD SPECIMENOrdering Facility: [facility] Address: [address] [place] [address] Performed By: #### T SCR ####[facility] [id number] [place] [address] [place] Start: 04-12-2023 Lipid 1996 panel - S brunilda or Plasma Joan Johnson L D RN.AGRICULTURE WORKER Work Phone: Start: 01-27-2022 SARS-CoV-2 (COVID-19 ) RNA [Presence] in Unspecified specimen by MERISSA with probe detection Rakesh Ta MD Work Phone: Start: 01-26-2022 End: 01-27-2022 Assay of magnesium Deborah Amador L D RN-AGRICULTURE WORKER Work Phone: Start: 01-25-2022 EXTRA MICRO Joy flores MD Work Phone: Start: 01-25-2022 URINALYSIS REFLEX TO CULTURE Joy Rawls MD Work Phone: Start: 01-25-2022 Urnls dip stick/tabl et reagent auto microscopy Joy Rawls MD Work Phone: Start: 01-25-2022 Assay of magnesium Elvie gracia Amador L D RN-AGRICULTURE WORKER Work Phone: Start: 01-24-2022 Assay of magnesium Elvie gracia Amador L D RN-AGRICULTURE WORKER Work Phone: Start: 01-23-2022 End: 01-23-2022 Assay of magnesium Deborahjessica Amador L D RN-AGRICULTURE WORKER Work Phone: Start: 01-22-2022 Blood count hematocrit Rakesh Ta MD Work Phone: Start: 01-22-2022 Assay of magnesium Elvie gracia Amador L D RN-AGRICULTURE WORKER Work Phone: Start: 01-21-2022 CARDIAC RHYTHM (SCANNED) Other Other Start: 01-21-2022 Ct head/brain w/o co ntrast material Rachel Castaneda MD Work Phone: Start: 01-21-2022 End: 01-21-2022 CRANIOPLASTY FOR SKULL DEFECT Severo wolf MD Work Phone: Start: 01-21-2022 End: 01-21-2022 Antibody screen Pablo Barraza MD Work Phone: Comment on above: Performed By: #### X M ####[facility] (DEFAULT)[address] [place] [address] Start: 01-21-2022 Iadna s aureus ampli fied probe tq Rakesh Ta MD Work Phone: Start: 01-21-2022 Assay of magnesium Elvie gracia Amador L D RN-AGRICULTURE WORKER Work Phone: Start: 01-21-2022 Blood typing serologic abo Rakesh Ta MD Work Phone: Start: 01-20-2022 Radiologic exam ches t single view Rakesh Ta MD Work Phone: Start: 01-20-2022 Radiologic exam swal low function contrast study Hieu Nava MD Work Phone: Start: 01-20-2022 SPEECH MODIFIED BARIUM SWALLOW Hieu Nava MD Work Phone: Start: 01-20-2022 Ct head/brain w/o co ntrast material Rakesh Ta MD Work Phone: Start: 01-20-2022 Assay of magnesium Elvie gracia Amador L D RN-AGRICULTURE WORKER Work Phone: Start: 01-19-2022 Assay of magnesium Elvie gracia Amador L D RN-AGRICULTURE WORKER Work Phone: Start: 01-18-2022 Assay of magnesium Elvie gracia Amador L D RN-AGRICULTURE WORKER Work Phone: Start: 01-17-2022 Glucose measurement, blood Severo Jurado MD Work Phone: Start: 01-17-2022 Ct head/brain w/o co ntrast material Severo Jurado MD Work Phone: Start: 01-17-2022 Antibody treponema pallidum Hieu Nava MD Work Phone: Start: 01-17-2022 Assay of folic acid serum Hieu Nava MD Work Phone: Start: 01-16-2022 Dup-scan xtr veins unilateral/limited study Hieu Nava MD Work Phone: Start: 01-16-2022 Iaad ia hiv-1 ag w/h iv-1 & hiv-2 antbdy single Hieu Nava MD Work Phone: Start: 01-16-2022 Assay of magnesium Elvie gracia Amador L D RN-AGRICULTURE WORKER Work Phone: Start: 01-15-2022 Blood count hematocrit Hieu Nava MD Work Phone: Start: 01-15-2022 End: 01-15-2022 Transfusion of packed red blood cells Cheo Jack MD Work Phone: Start: 01-15-2022 End: 01-15-2022 Antibody screen Pablo Barraza MD Work Phone: Comment on above: Performed By: #### X M #### [facility] ([facility]) [address] [place] [address] Start: 01-15-2022 Blood typing serologic abo Cheo Jack MD Work Phone: Start: 01-15-2022 PREPARE TO TRANSFUSE RED BLOOD CELLS Cheo Jack MD Work Phone: Start: 01-15-2022 Assay of magnesium Elvie gracia Amador L D RN-AGRICULTURE WORKER Work Phone: Start: 01-13-2022 Assay of magnesium Elvie gracia Amador L D RN-AGRICULTURE WORKER Work Phone: Start: 01-13-2022 Glucose measurement, blood Severo Jurado MD Work Phone: Start: 01-13-2022 Glucose measurement, blood Severo Jurado MD Work Phone: Start: 01-13-2022 Glucose measurement, blood Severo Jurado MD Work Phone: Start: 01-13-2022 Blood count complete automated Deborah Amador L D RN-AGRICULTURE WORKER Work Phone: Start: 01-13-2022 Glucose measurement, blood Severo Jurado MD Work Phone: Start: 01-13-2022 Assay of magnesium Elvie Amador L D RN-AGRICULTURE WORKER Work Phone: Start: 01-12-2022 Glucose measurement, blood Severo Jurado MD Work Phone: Start: 01-12-2022 CONTINUOUS CARDIAC M ONITORING STRIP Other Other Start: 01-12-2022 Glucose measurement, blood Severo Jurado MD Work Phone: Start: 01-12-2022 Glucose measurement, blood Severo Jurado MD Work Phone: Start: 01-12-2022 Assay of magnesium Elvie gracia Elza Amador L D RN-AGRICULTURE WORKER Work Phone: Start: 01-11-2022 Glucose measurement, blood Severo Jurado MD Work Phone: Start: 01-11-2022 Glucose measurement, blood Severo Jurado MD Work Phone: Start: 01-11-2022 End: 01-11-2022 Glucose measurement, blood Severo carson MD Work Phone: Start: 01-11-2022 Glucose measurement, blood Severo Jurado MD Work Phone: Start: 01-11-2022 Assay of magnesium Elvie gracia Amador L D RN-AGRICULTURE WORKER Work Phone: Start: 01-10-2022 Glucose measurement, blood Severo Jurado MD Work Phone: Start: 01-10-2022 Radiologic exam abdomen 1 view Dionicio Pacheco L D RN-AGRICULTURE WORKER Work Phone: Start: 01-10-2022 Glucose measurement, blood Veronica Velez MD Work Phone: Start: 01-10-2022 Glucose measurement, blood Veronica Velez MD Work Phone: Start: 01-09-2022 Glucose measurement, blood Jason Nassar MD Work Phone: Start: 01-09-2022 Assay of magnesium Elvie gracia Elza Perry L D RN-AGRICULTURE WORKER Work Phone: Start: 01-09-2022 Radiologic exam ches t single view Dionicio Pacheco L D RN-AGRICULTURE WORKER Work Phone: Start: 01-09-2022 Glucose measurement, blood Jason Nassar MD Work Phone: Start: 01-09-2022 Glucose measurement, blood Jason Nassar MD Work Phone: Start: 01-09-2022 Retired procedure Dionicio Pacheco L D RN-AGRICULTURE WORKER Work Phone: Start: 01-09-2022 Echo tthrc r-t 2d w/ wom-mode compl spec&colr d Deborah Amador L D RN-AGRICULTURE WORKER Work Phone: Start: 01-09-2022 Glucose measurement, blood Veronica Velez MD Work Phone: Start: 01-09-2022 Radiologic exam abdomen 1 view Deborah Amador L D RN-AGRICULTURE WORKER Work Phone: Start: 01-09-2022 Radiologic exam ches t single view Deborah Amador L D RN-AGRICULTURE WORKER Work Phone: Start: 01-09-2022 End: 01-09-2022 Culture bct isol&prsmptv id isolate ea urine Deborah Amador L D RN-AGRICULTURE WORKER Work Phone: Start: 01-09-2022 Drug tst prsmv instr mnt chem analyzers pr date Deborah Amador L D RN-AGRICULTURE WORKER Work Phone: Start: 01-09-2022 EXTRA MICRO Deborah Amador L D RN-AGRICULTURE WORKER Work Phone: Start: 01-09-2022 URINALYSIS REFLEX TO CULTURE Deborah Amador L D RN-AGRICULTURE WORKER Work Phone: Start: 01-09-2022 Blood gases any comb ination ph pco2 po2 co2 hco3 Deborah Amador L D RN-AGRICULTURE WORKER Work Phone: Start: 01-09-2022 Creatine kinase total C uzairlycourtney Amador L D RN-AGRICULTURE WORKER Work Phone: Start: 01-09-2022 End: 01-09-2022 Glucose measurement, blood Veronica cooley MD Work Phone: Start: 01-09-2022 IP CONSULT TO SPEECH THERAPY Deborah Amador L D RN-AGRICULTURE WORKER Work Phone: Start: 01-08-2022 End: 01-08-2022 Transfusion of packed red blood cells Lindsay Lemus MD, PhD Work Phone: Start: 01-08-2022 Ct head/brain w/o co ntrast material Lowell Bryant MD Work Phone: Start: 01-08-2022 ABORH TYPE RECONFIRMATION Becky Steinberg MD Work Phone: Start: 01-08-2022 Assay of magnesium Elvira Bryant MD Work Phone: Start: 01-08-2022 CBC AND ELECTRONIC DIFF Lowell Bryant MD Work Phone: Start: 01-08-2022 Complete blood count with white cell differential, automated Lowell Bryant MD Work Phone: Start: 01-08-2022 Lipid panel Deborah Amador L D RN-AGRICULTURE WORKER Work Phone: Start: 01-08-2022 Calcium ionized Carlton S Gayla AA Work Phone: Start: 01-08-2022 Antibody screen RADHA DAY Comment on above: Performed By: #### X M #### [facility] ([facility]) [address] [place] [address] Start: 01-08-2022 End: 01-08-2022 TRANSFUSE OR PLATELETS Miguel Angel Kay MD Work Phone: Start: 01-08-2022 End: 01-08-2022 EVACUATION BRAIN HEMATOMA BY CRANIECTOMY/CRANIOTOMY SUPRATENTORIAL Severo Jurado MD Work Phone: Start: 01-08-2022 Ct angio abd&plvis c ntrst mtrl w/wo cntrst img Kailee Lyon MD Work Phone: Start: 01-08-2022 Ct angiography chest w/contrast/noncontrast Kailee Lyon MD Work Phone: Start: 01-08-2022 End: 01-08-2022 Ct cervical spine w/o contrast material Kailee Lyon MD Work Phone: Start: 01-08-2022 End: 01-08-2022 Ct head/brain w/o contrast material Kailee Lyon MD Work Phone: Start: 01-08-2022 End: 01-08-2022 Drug tst prsmv instrmnt chem analyzers pr date Kailee Lyon MD Work Phone: Start: 01-08-2022 Ecg routine ecg w/le ast 12 lds trcg only w/o i&r Kailee Lyon MD Work Phone: Start: 01-08-2022 CBC AND ELECTRONIC DIFF Kailee Lyon MD Work Phone: Start: 01-08-2022 Complete blood count with white cell differential, automated Kailee Lyon MD Work Phone: Start: 01-08-2022 End: 01-08-2022 Creatine kinase total Kailee Lyon MD Work Phone: Start: 01-08-2022 GOLD TOP TUBE Kailee Lyon MD Work Phone: Start: 01-08-2022 HC ASSAY OF ALCOHOL ETHANOL SPEC XCP UR & BREATH IA Kailee Lyon MD Work Phone: Start: 01-08-2022 LAVENDER TOP TUBE Gene Lyon MD Work Phone: Start: 01-08-2022 MINT GREEN TOP TUBE Osvaldo Lyon MD Work Phone: Start: 01-08-2022 PREPARE TO TRANSFUSE OR PLASMA Miguel Angel Kay MD Work Phone: Start: 01-08-2022 PREPARE TO TRANSFUSE OR PLATELETS Miguel Angel Kay MD Work Phone: Start: 01-08-2022 PREPARE TO TRANSFUSE OR RED BLOOD CELLS Miguel Angel Kay MD Work Phone: Start: 01-08-2022 PREPARE TO TRANSFUSE RED BLOOD CELLS Lindsay Lemus MD, PhD Work Phone: Start: 01-08-2022 RAINBOW DRAW Kailee Lyon MD Work Phone: Start: 01-08-2022 Glucose measurement, blood Nelson Carmona MD Work Phone: Start: 01-08-2022 Lipid 1996 panel - S brunilda or Plasma Joan Johnson APRN.AGRICULTURE WORKER Work Phone: Start: 12-23-2021 Adult depression scr eening assessment Maryam Franco MD Work Phone: Start: 10-10-2021 Comprehensive metabo lic 2000 panel - Serum or Plasma Maryam Franco MD Work Phone: Start: 07-29-2021 Mammography Maryam france MD Work Phone: Start: 01-26-2017 Adult depression scr eening assessment Maryam Franco MD Work Phone: Start: 08-20-2016 Colonoscopy Maryam france MD Work Phone: Appendectomy BRAD THOMAS MD Cholecystectomy BRAD HADLEY MD Craniotomy ANALY LARSON DO H/O: surgery History of cranioplasty( Confirmed ) ANALY LARSON DO Lumpectomy of breast BRAD THOMAS MD Plan of Treatment Date Care Activity Detail Author Start: 04-12-2028 Lipid 1996 panel - Serum or Plasma Lipid Screening [facility] Start: 04-12-2028 Lipid panel Lipid Screening [facility] Start: 02-11-2027 Diabetes Screening Diabetes Screening [facility] Start: 01-08-2027 Fasting lipid profile [facility] Start: 01-08-2027 Lipid 1996 panel - Serum or Plasma Lipid Screening [facility] Start: 01-08-2027 LIPID SCREEN LIPID SCREEN [facility] Start: 11-07-2026 Diabetes Screening Diabetes Screening [facility] Start: 10-11-2026 Diabetes Screening Diabetes Screening [facility] Start: 08-20-2026 Colonoscopy COLONOSCOPY [facility] Start: 08-20-2026 COLORECTAL CANCER SCREENING COLORECTAL CANCER SCREENING [facility] Start: 08-20-2026 Screening for malignant neoplasm of colon [facility] Start: 08-17-2026 Diabetes Screening Diabetes Screening [facility] Start: 08-10-2026 Diabetes Screening Diabetes Screening [facility] Start: 08-05-2026 Diabetes Screening Diabetes Screening [facility] Start: 05-06-2026 Diabetes Screening Diabetes Screening [facility] Start: 04-12-2026 Diabetes Screening Diabetes Screening [facility] Start: 11-16-2025 LIPID SCREEN LIPID SCREEN [facility] Start: 10-19-2025 DIABETES SCREEN DIABETES SCREEN [facility] Start: 10-19-2025 Diabetes Screening Diabetes Screening [facility] Start: 08-17-2025 DIABETES SCREEN DIABETES SCREEN [facility] Start: 08-06-2025 DIABETES SCREEN DIABETES SCREEN [facility] Start: 08-04-2025 DIABETES SCREEN DIABETES SCREEN [facility] Start: 03-04-2025 DIABETES SCREEN DIABETES SCREEN [facility] Start: 02-22-2025 Annual PCP Team Chronic Disease Visit Annual PCP Team Chronic Disease Visit [facility] Start: 02-22-2025 BP Controlled (<130/80) BP Controlled (<130/80) [facility] Start: 02-16-2025 Annual PCP Team Chronic Disease Visit Annual PCP Team Chronic Disease Visit [facility] Start: 02-16-2025 BP Controlled (<130/80) BP Controlled (<130/80) [facility] Start: 02-11-2025 Creatinine measurement [facility] Start: 02-11-2025 Potassium measurement [facility] Start: 02-11-2025 [facility] Start: 01-09-2025 DIABETES SCREEN DIABETES SCREEN [facility] Start: 01-02-2025 Annual PCP Team Chronic Disease Visit Annual PCP Team Chronic Disease Visit [facility] Start: 01-02-2025 BP Controlled (<130/80) BP Controlled (<130/80) [facility] Start: 12-01-2024 Annual PCP Team Chronic Disease Visit Annual PCP Team Chronic Disease Visit [facility] Start: 12-01-2024 BP Controlled (<130/80) BP Controlled (<130/80) [facility] in Start: 11-03-2024 DIABETES SCREEN DIABETES SCREEN [facility] Start: 10-11-2024 Creatinine measurement [facility] Start: 10-11-2024 Potassium measurement [facility] Start: 10-10-2024 DIABETES SCREEN DIABETES SCREEN [facility] Start: 09-27-2024 [facility] Start: 09-22-2024 Annual PCP Team Chronic Disease Visit Annual PCP Team Chronic Disease Visit [facility] Start: 09-22-2024 BP Controlled (<130/80) BP Controlled (<130/80) [facility] in Start: 08-17-2024 Annual PCP Team Chronic Disease Visit Annual PCP Team Chronic Disease Visit [facility] Start: 08-17-2024 BP Controlled (<130/80) BP Controlled (<130/80) [facility] Start: 07-14-2024 Annual PCP Team Chronic Disease Visit Annual PCP Team Chronic Disease Visit [facility] Start: 07-14-2024 BP Controlled (<130/80) BP Controlled (<130/80) [facility] Start: 05-06-2024 Annual PCP Team Chronic Disease Visit Annual PCP Team Chronic Disease Visit [facility] Start: 05-06-2024 BP Controlled (<130/80) BP Controlled (<130/80) [facility] Start: 05-06-2024 Diabetes mellitus screening [facility] Start: 04-25-2024 End: 04-25-2024 Patient encounter procedure 04/25/2024 3:15 PM EDT Office Visit Pulmonary Medicine [address] [place] [address] Becky Flannery MD [address] [place] [address] COPD Pulmonary Medicine Comment on above: COPD Start: 04-25-2024 End: 04-25-2024 ambulatory PULM LAB [facility] Comment on above: COPD Start: 04-13-2024 End: 04-13-2024 Patient encounter procedure 04/13/2024 2:00 PM EDT Office Visit [facility] [address] [place] [address] Jayson Trujillo MD [address] [facility] [address] [place] [address] Chronic pain of right lower extremity [M79.604, G89.29] [facility] Comment on above: Chronic pain of right lower extremity [M 79.604, G89.29] Start: 04-07-2024 End: 04-07-2024 Patient encounter procedure 04/07/2024 11:00 AM EDT Office Visit Pulmonary Medicine [address] [place] [address] Becky Flannery MD [address] [place] [address] COPD Pulmonary Medicine Comment on above: COPD Start: 04-07-2024 End: 04-07-2024 ambulatory PUL[facility] LAB [facility] Comment on above: COPD Start: 03-25-2024 Annual PCP Team Chronic Disease Visit Annual PCP Team Chronic Disease Visit [facility] Start: 03-23-2024 End: 03-23-2024 Patient encounter procedure 03/23/2024 3:00 PM EDT Office Visit [facility] [address] [place] [address] Maryam Franco MD [address] [place] [address] Chronic pain of right lower extremity [M79.604, G89.29] [facility] Comment on above: Chronic pain of right lower extremity [M 79.604, G89.29] Start: 03-20-2024 End: 03-20-2024 Patient encounter procedure 03/20/2024 8:00 AM EDT Office Visit Neurology [address] [place] [address] Pushpa Esquivel Jr., MD [address] [facility] [address] [place] [id number] Insomnia, unspecified type [G47.00]; Confusion [R41.0]; RLS (restless legs syndrome) [G25.81] Neurology Comment on above: Insomnia, unspecified type [G47.00]; Con fusion [R41.0]; RLS (restless legs syndrome) [G25.81] Start: 03-07-2024 End: 03-07-2024 Patient encounter procedure 03/07/2024 1:40 PM EDT Office Visit [facility] [address] [place] [address] Maryam Franco MD [address] [place] [address] 2 month follow up [facility] Comment on above: 2 month follow up Start: 03-05-2024 Influenza vaccination [facility] Start: 03-05-2024 [facility] Start: 02-22-2024 End: 05-23-2024 Lipid 1996 panel - Serum or Plasma LIPID PANEL BASIC Lab Routine Mixed hyperlipidemia Expected: 02/22/2024, Expires: 05/23/2024 [facility] Work Phone: Comment on above: Expected: 02/22/2024, Expires: Start: 02-21-2024 End: 02-21-2024 ambulatory [facility] Medical [facility] Start: 02-21-2024 End: 02-21-2024 Patient encounter procedure 02/21/2024 10:00 AM EDT Appointment Radiology [address] [place] [address] Right leg pain [M79.604] Radiology Comment on above: Right leg pain [M79.604] Start: 02-06-2024 ANNUAL PCP TEAM CHRONIC DISEASE VISIT ANNUAL PCP TEAM CHRONIC DISEASE VISIT [facility] Start: 02-06-2024 BP CONTROLLED (<130/80) BP CONTROLLED (<130/80) [facility] Start: 01-03-2024 End: 01-03-2024 Patient encounter procedure 01/03/2024 2:00 PM EDT Office Visit [facility] [address] [place] [address] Lise Major, L D RN.AGRICULTURE WORKER [address] [place] [address] Med Recheck/Refill [facility] Comment on above: Med Recheck/Refill Start: 12-24-2023 End: 12-24-2023 Patient encounter procedure 12/24/2023 1:30 PM EDT Office Visit General Surgery [address] [place] [address] Dex Hdz MD 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) [Z93.1] General Surgery Comment on above: 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) [Z93.1] Start: 12-21-2023 End: 12-21-2023 Patient encounter procedure 12/21/2023 9:20 AM EDT Office Visit Family Medicine [facility] [address] [place] [address] Bela Carbajal PA-C [address] [place] [address] Med Recheck/Refill [facility] Comment on above: Med Recheck/Refill Start: 12-06-2023 End: 12-06-2023 Patient encounter procedure 12/06/2023 2:40 PM EDT Office Visit Internal Medicine [facility] [address] [place] [address] Issa Herman MD [address] [place] [address] Kang Young D/C 11/24 [facility] Comment on above: Kang Young D/C 11/24 Start: 11-17-2023 DIABETES SCREEN DIABETES SCREEN [facility] Start: 11-14-2023 ANNUAL PCP TEAM CHRONIC DISEASE VISIT ANNUAL PCP TEAM CHRONIC DISEASE VISIT [facility] Start: 11-04-2023 ANNUAL PCP TEAM CHRONIC DISEASE VISIT ANNUAL PCP TEAM CHRONIC DISEASE VISIT [facility] Start: 11-04-2023 BP CONTROLLED (<130/80) BP CONTROLLED (<130/80) [facility] Start: 11-01-2023 End: 11-01-2023 ambulatory [facility] Start: 2023 ANNUAL PCP TEAM CHRONIC DISEASE VISIT ANNUAL PCP TEAM CHRONIC DISEASE VISIT [facility] Start: 10-02-2023 ANNUAL PCP TEAM CHRONIC DISEASE VISIT ANNUAL PCP TEAM CHRONIC DISEASE VISIT [facility] Start: 10-02-2023 COVID-19 VACCINE (4 - Booster for Pfizer series) COVID-19 VACCINE (4 - Booster for Pfizer series) [facility] Comment on above: Postponed from 08/13/2021 (Declined at t his time) Start: 10-02-2023 COVID-19 VACCINE (4 - Pfizer series) COVID-19 VACCINE (4 - Pfizer series) [facility] Comment on above: Postponed from 08/13/2021 (Declined at t his time) Start: 08-19-2023 ANNUAL PCP TEAM CHRONIC DISEASE VISIT ANNUAL PCP TEAM CHRONIC DISEASE VISIT [facility] Start: 08-19-2023 BP CONTROLLED (<130/80) BP CONTROLLED (<130/80) [facility] Start: 07-05-2023 Advance Directive Discussion Advance Directive Discussion [facility] Start: 07-05-2023 Behavioral Health Screening Behavioral Health Screening [facility] Start: 07-05-2023 Depression Assessment Depression Assessment [facility] Start: 07-05-2023 [facility] Start: 05-22-2023 ANNUAL PCP TEAM CHRONIC DISEASE VISIT ANNUAL PCP TEAM CHRONIC DISEASE VISIT [facility] Start: 05-22-2023 BP CONTROLLED (<130/80) BP CONTROLLED (<130/80) [facility] Start: 03-26-2023 ANNUAL PCP TEAM CHRONIC DISEASE VISIT ANNUAL PCP TEAM CHRONIC DISEASE VISIT [facility] Start: 03-25-2023 End: 05-25-2023 CBC panel - Blood by Automated count CBC Lab Routine Anemia, unspecified type Expected: 03/25/2023, Expires: 05/25/2023 [facility] Work Phone: Comment on above: Expected: 03/25/2023, Expires: Start: 03-25-2023 End: 05-25-2023 Comprehensive metabolic 2000 panel - Serum or Plasma COMP METABOLIC PANEL Lab Routine Anemia, unspecified type Elevated liver enzymes Mixed hyperlipidemia Expected: 03/25/2023, Expires: 05/25/2023 [facility] Work Phone: Comment on above: Expected: 03/25/2023, Expires: 3 Start: 03-25-2023 End: 05-25-2023 Lipid 1996 panel - Serum or Plasma LIPID PANEL BASIC Lab Routine Mixed hyperlipidemia Expected: 03/25/2023, Expires: 05/25/2023 [facility] Work Phone: Comment on above: Expected: 03/25/2023, Expires: 3 Start: 03-09-2023 End: 05-09-2023 Lipid 1996 panel - Serum or Plasma LIPID PANEL BASIC Lab Routine Essential hypertension Expected: 03/09/2023, Expires: 05/09/2023 [facility] Work Phone: Comment on above: Expected: 03/09/2023, Expires: 3 Start: 03-05-2023 Covid-19 Vaccine ( season) Covid-19 Vaccine ( season) [facility] Start: 03-05-2023 Influenza vaccination [facility] Start: 03-05-2023 [facility] Start: 03-03-2023 ANNUAL PCP TEAM CHRONIC DISEASE VISIT ANNUAL PCP TEAM CHRONIC DISEASE VISIT [facility] Start: 02-17-2023 ANNUAL PCP TEAM CHRONIC DISEASE VISIT ANNUAL PCP TEAM CHRONIC DISEASE VISIT [facility] Start: 01-01-2023 Influenza vaccination INFLUENZA (#1) [facility] Comment on above: Postponed from 03/05/2022 (Declined at t his time) Start: 12-23-2022 Adult depression screening assessment DEPRESSION SCREENING [facility] Start: 12-23-2022 ANNUAL PCP TEAM CHRONIC DISEASE VISIT ANNUAL PCP TEAM CHRONIC DISEASE VISIT [facility] Start: 11-18-2022 End: 01-18-2023 CBC W Auto Differential panel - Blood CBC + DIFF Lab Routine Medication monitoring encounter Anemia, unspecified type Expected: 11/18/2022 (Approximate), Expires: 01/18/2023 [facility] Work Phone: Comment on above: Expected: 11/18/2022 (Approximate), Expi res: 01/18/2023 Start: 11-18-2022 End: 01-18-2023 Comprehensive metabolic 2000 panel - Serum or Plasma COMP METABOLIC PANEL Lab Routine Elevated liver enzymes Medication monitoring encounter Anemia, unspecified type Expected: 11/18/2022 (Approximate), Expires: 01/18/2023 [facility] Work Phone: Comment on above: Expected: 11/18/2022 (Approximate), Expi res: 01/18/2023 Start: 11-03-2022 ANNUAL PCP TEAM CHRONIC DISEASE VISIT ANNUAL PCP TEAM CHRONIC DISEASE VISIT [facility] Start: 10-16-2022 End: 12-16-2022 Basic metabolic 2000 panel - Serum or Plasma BASIC METABOLIC PNL Lab Routine Decompensated heart failure (HCC) RLS (restless legs syndrome) Expected: 10/16/2022, Expires: 12/16/2022 [facility] Work Phone: Comment on above: Expected: 10/16/2022, Expires: 3 Start: 10-16-2022 End: 12-16-2022 CBC W Auto Differential panel - Blood CBC + DIFF Lab Routine Decompensated heart failure (HCC) Expected: 10/16/2022, Expires: 12/16/2022 [facility] Work Phone: Comment on above: Expected: 10/16/2022, Expires: 3 Start: 10-16-2022 End: 12-16-2022 Ferritin [Mass/volume] in Serum or Plasma FERRITIN BLD Lab Routine RLS (restless legs syndrome) Expected: 10/16/2022, Expires: 12/16/2022 [facility] [facility] Work Phone: Comment on above: Expected: 10/16/2022, Expires: 3 Start: 10-16-2022 End: 12-16-2022 Iron and Iron binding capacity panel - Serum or Plasma IRON + TIBC Lab Routine RLS (restless legs syndrome) Expected: 10/16/2022, Expires: 12/16/2022 [place] [facility] Work Phone: Comment on above: Expected: 10/16/2022, Expires: 3 Start: 10-16-2022 End: 12-16-2022 Magnesium [Mass/volume] in Serum or Plasma MAGNESIUM BLD Lab Routine RLS (restless legs syndrome) Expected: 10/16/2022, Expires: 12/16/2022 [place] [facility] Work Phone: Comment on above: Expected: 10/16/2022, Expires: 3 Start: 10-08-2022 ANNUAL PCP TEAM CHRONIC DISEASE VISIT ANNUAL PCP TEAM CHRONIC DISEASE VISIT [facility] Start: 07-29-2022 Mammography [facility] Start: 07-29-2022 Screening for malignant neoplasm of breast Mammogram Screening [facility] Start: 07-05-2022 ADVANCE DIRECTIVE DISCUSSION ADVANCE DIRECTIVE DISCUSSION [facility] Start: 07-05-2022 DEPRESSION ASSESSMENT DEPRESSION ASSESSMENT [facility] Start: 07-01-2022 ANNUAL PCP TEAM CHRONIC DISEASE VISIT ANNUAL PCP TEAM CHRONIC DISEASE VISIT [facility] Start: 06-30-2022 End: 08-30-2022 Lipid 1996 panel - Serum or Plasma LIPID PANEL BASIC Lab Routine Essential hypertension Expected: 06/30/2022, Expires: 08/30/2022 [facility] Work Phone: Comment on above: Expected: 06/30/2022, Expires: 3 Start: 06-30-2022 End: 08-30-2022 SCHEDULE LAB TESTING SCHEDULE LAB TESTING Lab Routine Expected: 06/30/2022, Expires: 08/30/2022 [place] [facility] Work Phone: Comment on above: Expected: 06/30/2022, Expires: 3 Start: 03-05-2022 Influenza vaccination [facility] Start: 01-27-2022 End: 03-29-2022 Lipid 1996 panel - Serum or Plasma LIPID PANEL BASIC Lab Routine Medication management Expected: 01/27/2022, Expires: 03/29/2022 [place] [facility] Work Phone: Comment on above: Expected: 01/27/2022, Expires: 2 Start: 01-27-2022 End: 09-25-2022 SCHEDULE LAB TESTING SCHEDULE LAB TESTING Lab Routine Expected: 01/27/2022, Expires: 03/29/2022 [facility] Work Phone: Comment on above: Expected: 01/27/2022, Expires: 2 Start: 11-03-2021 End: 01-03-2022 Comprehensive metabolic 2000 panel - Serum or Plasma [place] [facility] Work Phone: Comment on above: Expected: 11/03/2021, Expires: 2 Start: 11-03-2021 End: 01-03-2022 Magnesium [Mass/volume] in Serum or Plasma [facility] Work Phone: Comment on above: Expected: 11/03/2021, Expires: 2 Start: 2021 COVID-19 VACCINE (4 - Booster for Pfizer series) COVID-19 VACCINE (4 - Booster for Pfizer series) [facility] Start: 2021 [facility] Start: 10-08-2021 End: 12-08-2021 CBC W Auto Differential panel - Blood CBC + DIFF Lab Routine GUME (acute kidney injury) (HCC) Expected: 10/08/2021, Expires: 12/08/2021 [facility] Work Phone: Comment on above: Expected: 10/08/2021, Expires: 2 Start: 10-08-2021 End: 12-08-2021 Comprehensive metabolic 2000 panel - Serum or Plasma COMP METABOLIC PANEL Lab Routine GUME (acute kidney injury) (HCC) Expected: 10/08/2021, Expires: 12/08/2021 [facility] Work Phone: Comment on above: Expected: 10/08/2021, Expires: 2 Start: 10-08-2021 End: 12-08-2021 Natriuretic peptide.B prohormone N-Terminal [Mass/volume] in Serum or Plasma NT PRO BNP Lab Routine Congestive heart failure, unspecified HF chronicity, unspecified heart failure type (HCC) Expected: 10/08/2021, Expires: 12/08/2021 [facility] Work Phone: Comment on above: Expected: 10/08/2021, Expires: 2 Start: 10-08-2021 End: 12-08-2021 TROPONIN T TROPONIN T Lab Routine Hypervolemia, unspecified hypervolemia type Expected: 10/08/2021, Expires: 12/08/2021 [facility] Work Phone: Comment on above: Expected: 10/08/2021, Expires: 2 Start: 08-13-2021 COVID-19 VACCINE (4 - Booster for Pfizer series) COVID-19 VACCINE (4 - Booster for Pfizer series) [facility] Start: 07-23-2021 Screening for malignant neoplasm of breast [facility] Start: 07-05-2021 ADVANCE DIRECTIVE DISCUSSION ADVANCE DIRECTIVE DISCUSSION [facility] Start: 07-05-2021 DEPRESSION ASSESSMENT DEPRESSION ASSESSMENT [facility] Start: 10-18-2019 Pneumococcal vaccination [facility] Start: 10-18-2019 PNEUMOVAX AGE 65 AND OVER WITH 5YR LOOKBACK (#1) PNEUMOVAX AGE 65 AND OVER WITH 5YR LOOKBACK (#1) [facility] Start: 01-26-2018 Adult depression screening assessment DEPRESSION SCREENING [facility] Start: 04-25-2016 PNEUMOCOCCAL: 65+ (2 - PPSV23 if available, else PCV20) PNEUMOCOCCAL: 65+ (2 - PPSV23 if available, else PCV20) [facility] Start: 04-25-2016 PNEUMOCOCCAL: 65+ (2 - PPSV23 or PCV20) PNEUMOCOCCAL: 65+ (2 - PPSV23 or PCV20) [facility] Start: 06-20-2015 PNEUMOCOCCAL: 65+ (2 - PPSV23 if available, else PCV20) PNEUMOCOCCAL: 65+ (2 - PPSV23 if available, else PCV20) [facility] Start: 06-20-2015 PNEUMOCOCCAL: 65+ (2 - PPSV23 or PCV20) PNEUMOCOCCAL: 65+ (2 - PPSV23 or PCV20) [facility] Start: 2014 RSV Vaccine (1 - 1-dose 60+ series) RSV Vaccine (1 - 1-dose 60+ series) [facility] Start: 2014 [facility] Start: 2004 SHINGRIX VACCINE (1 of 2) SHINGRIX VACCINE (1 of 2) [facility] Start: 2004 [facility] Start: 10-18-1999 COLOGUARD (FIT-DNA) COLOGUARD (FIT-DNA) [facility] Start: 10-18-1999 Colonoscopy [facility] Start: 10-18-[address] COLONOGRAPHY [facility] Start: 10-18-1999 FECAL OCCULT BLOOD FECAL OCCULT BLOOD [facility] Start: 10-18-1999 Screening for malignant neoplasm of colon [facility] Start: 10-18-1999 SIGMOIDOSCOPY SIGMOIDOSCOPY [facility] Start: 1994 Screening mammography [facility] Start: 10-18-1975 Screening for malignant neoplasm of cervix [facility] Start: 1973 Third diphtheria, tetanus and acellular pertussis (DTaP) vaccination [facility] Start: 1973 Urine microalbumin profile [facility] Start: 1973 [facility] Start: 1972 BP CONTROLLED (<130/80) BP CONTROLLED (<130/80) [facility] Start: 1972 Depression Screening Depression Screening [facility] Start: 1972 Hepatitis C screening [facility] Start: 1972 SPIROMETRY SPIROMETRY [facility] Start: 1972 Tetanus vaccination [facility] Start: 1966 [facility] Start: 1954 Lipid panel [facility] Start: 1954 Screening for malignant neoplasm of colon [facility] Start: 1954 Screening for osteoporosis [facility] End: 09-27-2023 Blood gases, arterial measurement [facility] Work Phone: End: 09-28-2023 Blood gases, arterial measurement [facility] End: 05-03-2023 Ct cervical spine w/o contrast material CT CERVICAL SPINE WO IVCON Radiology Routine Closed nondisplaced fracture of seventh cervical vertebra with routine healing, unspecified fracture morphology, subsequent encounter 1 Occurrences starting 04/03/2022 until 05/03/2023 [facility] Work Phone: Comment on above: 1 Occurrences starting 04/03/2022 until 05/03/2023 End: 05-03-2023 Ct lumbar spine w/o contrast material CT LUMBAR SPINE WO IVCON Radiology Routine Right leg numbness Right leg weakness Midline low back pain, unspecified chronicity, unspecified whether sciatica present Compression fracture of T12 vertebra, sequela 1 Occurrences starting 04/03/2022 until 05/03/2023 [facility] Work Phone: Comment on above: 1 Occurrences starting 04/03/2022 until 05/03/2023 End: 05-03-2023 Ct thoracic spine w/o contrast material CT THORACIC SPINE WO IVCON Radiology Routine Right leg numbness Right leg weakness Midline low back pain, unspecified chronicity, unspecified whether sciatica present Compression fracture of T12 vertebra, sequela 1 Occurrences starting 04/03/2022 until 05/03/2023 [facility] Work Phone: Comment on above: 1 Occurrences starting 04/03/2022 until 05/03/2023 End: 10-08-2022 ECG COMPLETE ECG COMPLETE ECG Routine Cardiomegaly 1 Occurrences starting 10/08/2021 until 10/08/2022 [facility] Work Phone: Comment on above: 1 Occurrences starting 10/08/2021 until 10/08/2022 End: 10-08-2022 Echocardiography [facility] [place] Cardiomegaly 1 Occurrences starting 10/08/2021 until 10/08/2022 [facility] Work Phone: Comment on above: 1 Occurrences starting 10/08/2021 until 10/08/2022 End: 10-31-2023 GARRETT SCREENING GARRETT SCREENING Radiology Routine Screening mammogram for breast cancer 1 Occurrences starting 10/01/2022 until 10/31/2023 [facility] Work Phone: Comment on above: 1 Occurrences starting 10/01/2022 until 10/31/2023 End: 11-07-2022 Radiologic exam chest 2 views XR CHEST 2V FRONTAL/LAT Radiology Routine Congestive heart failure, unspecified HF chronicity, unspecified heart failure type (HCC) 1 Occurrences starting 10/08/2021 until 11/07/2022 [facility] Work Phone: Comment on above: 1 Occurrences starting 10/08/2021 until 11/07/2022 TRANSFUSE OR RED BLO OD CELLS [facility] Work Phone: End: 03-18-2025 XR Lumbar spine 3 Views XR LUMBAR GENERAL 3V AP/LAT/L5-S1 Radiology Routine Right leg pain 1 Occurrences starting 02/17/2024 until 03/18/2025 [facility] Work Phone: Comment on above: 1 Occurrences starting 02/17/2024 until 03/18/2025 End: 03-18-2025 XR Pelvis and Hip - right AP and Lateral frog XR HIP GENERAL 3V PELV/AP/LAT RIGHT Radiology Routine Right leg pain 1 Occurrences starting 02/17/2024 until 03/18/2025 [facility] Comment on above: 1 Occurrences starting 02/17/2024 until 03/18/2025 [facility] Immunizations Immunization Date Immunization Notes Care Provider Fa [facility] 06-18-2021 COVID-19 vaccine, ag e 12+ yr ([employer] - PURPLE TOP) Maryam Franco MD Work Phone: [facility] Work Phone: 05-07-2021 influenza, high-dose , quadrivalent vaccine (FLUZONE HIGH DOSE QUADRIVALENT) Maryam Franco MD Work Phone: [facility] Work Phone: 05-07-2021 influenza virus vaccine, unspecified formulation Joan Johnson L D RN.AGRICULTURE WORKER Work Phone: [facility] 04-25-2020 pneumococcal polysaccharide vaccine, 23 valent Joan Johnson L D RN.AGRICULTURE WORKER Work Phone: [facility] Work Phone: 04-07-2017 influenza, injectabl e, quadrivalent, contains preservative Maryam Franco MD Work Phone: [facility] 04-14-2016 influenza, injectabl e, quadrivalent, contains preservative Maryam Franco MD Work Phone: [facility] 04-25-2015 pneumococcal conjuga te vaccine, 13 valent Maryam Franco MD Work Phone: [facility] 04-08-2015 influenza, seasonal, injectable Maryam Franco MD Work Phone: [facility] 05-07-2006 pneumococcal conjuga te vaccine, 7 valyakov Franco MD Work Phone: [facility] Work Phone: NEGATED: Highlighted row has not occurred!07-26-2022 Charlene Henderson MD Work Phone: [facility] Payers Date Payer Category Payer Unknown [id number] 2023 Unknown [facility] MEDICARE ADVANTAGE O [id number] 2023-Present [phone] [address] [place] [address] [facility] [id number] 2023 Medicare [id number] 2021 Medicare 2021 Medicare HUMANA MEDICARE HU[employer]NA GOLD PLUS [id number] 2021-Present [phone] [address] [address] [place] [address] [facility] [id number] 2021 Medicare [id number] 2008 Medicare MEDICARE MEDICAR E A AND B [id number] 2008-Present [phone] [address] [address] [place] [address] Medicare [id number] 1954 Unknown [id number] 1954 Unknown [id number] 1954 Unknown [id number] Unknown [id number] Medicare [id number] Social History Date Type Detail Facility Start: 06-14-2012 End: 02-23-2024 Ex-smoker (finding) [facility] Sex Assigned At [facility] Start: 04-06-1988 End: 07-13-2013 History of tobacco use Current smoker [facility] Start: 04-06-1988 End: 07-13-2013 History of tobacco use Cigarette Smoker [facility] Start: 09-15-2021 End: 02-23-2024 Alcohol intake Current drinker of alcohol (finding) [facility] Start: 08-08-2013 History SDOH Alcohol Comment Rarely [facility] Start: 1955 Sex Assigned At Not on file C [facility] Start: 09-19-2021 End: 04-03-2022 Exposure to SARS-CoV-2 (event) Not sure [facility] Tobacco smoking stat us MAIS Tobacco smoking consumption unknown [facility] Work Phone: Start: 06-14-2012 End: 08-06-2023 Cigarettes smoked current (pack per day) - Reported 1 [facility] Work Phone: Start: 06-14-2012 End: 02-23-2024 Tobacco use and exposure Smokeless tobacco non-user [facility] Start: 11-03-2022 End: 08-06-2023 Tobacco use panel [facility] Work Phone: Adult Depression Screening Assessment 1 [facility] Work Phone: (I/We) worried wheth er (my/our) food would run out before (I/we) got money to buy more. 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 No [facility] Attunity Are you now , , , , never or living with a partner? [facility] How often to you hav e a drink containing alcohol? Never [facility] Do you feel stress - tense, restless, nervous, or anxious, or unable to sleep at night because your mind is troubled all the time - these days [OSQ] Very much [employer] Procedure Code Equipment Code Equipment Origin al Text Equipment Identifier Dates [id number] Start: 01-08-2022 [id number] Start: 01-21-2022 [Order 1 Start] Name: COMMUNICATION ORDER FOR NURSING CARE: For Blood Glucose LESS THAN 80 mg/dl Signed Summary: Routine, CONTINUOUS, Starting on Wed01/09/22 at 0133, Until Specified For Blood Glucose LESS THAN 80 mg/dl, follow Hypoglycemia in Non- Adults Clinical Practice Guideline (CPG) [Order 1 End] [Order 2 Start] Name: dextrose 50% injection 7.5-25 g Signed Summary: 7.5-25 g, Intravenous, ADMINISTER DIRECTED, Starting on Wed01/09/22 at 0132, Until Wed01/27/22 at 1901, Blood glucose <80 mg/dL For patients who are not alert, are NPO, or are on IV insulin infusion administer as directed per Hypoglycemia in Non- Adults Clinical Practice Guideline. For Blood Glucose: 60-79 mg/dL administer 7.5 gm (15ml); 45-59 mg/dL administer 12.5 gm (25ml); less than 45mg/dL administer 25gm (50ml). [Order 2 End] [Order 3 Start] Name: glucose (GLUTOSE) 40 % oral gel 1-2 Tube Signed Summary: 1-2 Tube, Oral, ADMINISTER DIRECTED, Starting on Wed01/09/22 at 0132, Until Wed01/27/22 at 1901, Blood glucose <80 mg/dL For patients who are alert, able to tolerate PO intake and with intact cognitive status administer as directed per Hypoglycemia in Non- Adults Clinical Practice Guideline. For Blood Glucose: 60-79 mg/dL administer 1 tube; 45-59 mg/dl administer 1.5 tubes; less than 45 mg/dL administer 2 tubes. &nbs p;Each tube of 37.5g delivers 15g of carbohydrate.&nbsp ;++ National shortage requires use of alternates. Consider juice, food, and glucose tablets per Clinical Practice Guideline first if appropriate. For Insta-Glucose product: Each tube of 31g delivers 24g of carbohydrate. Percent strength 77.4% represents glucose content, equal to ~40% dextrose content. ++ [Order 3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 WANT REHAB UP HERE, WANTS TO BE CLOSE TO HER HOME. DISCUSSED SNF WITH HER, IS AGREEABLE TO THIS. SNF LIST PRINTED AND GIVEN TO PT, STAR RATINGS DISCUSSED. Discharge Milestones and Delays Expected date/time: 02/11/[address] discharge order Complete med reconciliation Case mgmt discharge readiness Clinical Stability Diagnostic Workup Patient Education Complete Expected Discharge History Expected Date/Time Set By Reviewed At 02/11/2024 Adriane Perez RN 02/07/2024 10:41 AM 02/07/2024 Adriane Perez RN 02/04/2024 10:36 AM 02/07/2024 Adriane Perez RN 01/31/2024 10:42 AM 05/07/2024 Alayna Gaxiola MD 01/28/2024 11:27 PM 05/07/2024 Alayna Gaxiola MD 01/28/2024 9:43 PM Length of Stay (Days): 12 GMLOS: 5.2 Spoke with business office representative from [facility] where patient stated they were active for HHC. Per business office representative patient is no longer active due to cancelling her services and they stated they would not be able to accept her back due to non-compliance. HCL to continue to follow for dc needs. Palliative Care, Geratic, along with Critical Care procedure & progress notes transmitted to [facility]. [facility] communicated that they didn't receive any medical notes besides H&P. CMIA, Facesheet, Speech, Physical & Occupational, Respiratory Therapy, & Critical Care progress notes has been transmitted to [facility] via [facility] per TCC request. Problem: Knowledge Deficit Goal: Patient/family/caregiver demonstrates understanding of disease process, treatment plan, medications, and discharge instructions Outcome: Progressing Problem: Potential for Compromised Skin Integrity Goal: Skin Integrity is Maintained or Improved Outcome: Progressing Goal: Nutritional status is improving Outcome: Progressing Problem: Urinary Incontinence Goal: Perineal skin integrity is maintained or improved Outcome: Progressing Problem: Problem Interventions Goal: Assess Nutritional Intake Outcome: Progressing The patient is Moderately Stable - Low risk of patient condition declining or worsening The patient's goals for the shift include sleep The clinical goals for the shift include stable respiratory status Referral placed to [facility] via [facility] per [facility] request. Await review and response regarding ability to accept. TCC notified. Spoke with patient at bedside to discuss PT/OT recommendations of IPR/continue to assess. Patient agreeable to IPR, discussed choice including [facility], [facility] and [facility]. Patient would like [place]. Task to [facility] to place referral. ICU Transfer Checklist Transfer Med Reconciliation (resume home meds if able, convert to PO if able) Complete Antibiotics (name, indication, duration, convert to PO if able) None Steroid (indication, duration, convert to PO if able) Yes, addressed in today's progress note Anticipated [place] Medications (ICU initiated) or Dose Changes and Indication No Permanently Discontinued Home Medications and Reason for medication contraindication No Soliman Catheter (please remove if able. Note: place DC order) No Central Line (please remove if able. Note: place DC order) Yes, indication difficult peripheral access. May require PICC line. Transfer Discussed with: Dr. Oden, [facility] [place], [place] If additional questions for ICU team within 24 hours of ICU transfer, page for clarifications. Problem: Knowledge Deficit Goal: Patient/family/caregiver demonstrates understanding of disease process, treatment plan, medications, and discharge instructions Outcome: Progressing Problem: Potential for Compromised Skin Integrity Goal: Skin Integrity is Maintained or Improved Outcome: Progressing Goal: Nutritional status is improving Outcome: Progressing Problem: Urinary Incontinence Goal: Perineal skin integrity is maintained or improved Outcome: Progressing Problem: Problem Interventions Goal: Assess Nutritional Intake Outcome: Progressing Problem: Knowledge Deficit Goal: Patient/family/caregiver demonstrates understanding of disease process, treatment plan, medications, and discharge instructions 02/06/202450 by Dennis Zarco RN Outcome: Progressing 02/06/202441 by Dennis Zarco RN Outcome: Progressing Problem: Potential for Compromised Skin Integrity Goal: Skin Integrity is Maintained or Improved 02/06/202450 by Dennis Zarco RN Outcome: Progressing 02/06/202441 by Dennis Zarco RN Outcome: Progressing Goal: Nutritional status is improving 02/06/202450 by Dennis Zarco RN Outcome: Progressing 02/06/202441 by Dennis Zarco RN Outcome: Progressing Problem: Urinary Incontinence Goal: Perineal skin integrity is maintained or improved 02/06/202450 by Dennis Zarco RN Outcome: Progressing 02/06/202441 by Dennis Zarco RN Outcome: Progressing Problem: Problem Interventions Goal: Assess Nutritional Intake 02/06/202450 by Dennis Zarco RN Outcome: Progressing 02/06/202441 by Dennis Zarco RN Outcome: Progressing The patient's goals for the shift include Feel Better The clinical goals for the shift include Apply BIPAP and watch for improvement in ABG Problem: Knowledge Deficit Goal: Patient/family/caregiver demonstrates understanding of disease process, treatment plan, medications, and discharge instructions Outcome: Progressing Problem: Potential for Compromised Skin Integrity Goal: Skin Integrity is Maintained or Improved Outcome: Progressing Goal: Nutritional status is improving Outcome: Progressing Problem: Urinary Incontinence Goal: Perineal skin integrity is maintained or improved Outcome: Progressing Problem: Problem Interventions Goal: Assess Nutritional Intake Outcome: Progressing The patient's goals for the shift include Feel Better The clinical goals for the shift include Apply BIPAP and watch for improvement in ABG Problem: Knowledge Deficit Goal: Patient/family/caregiver demonstrates understanding of disease process, treatment plan, medications, and discharge instructions Outcome: Progressing Problem: Potential for Compromised Skin Integrity Goal: Skin Integrity is Maintained or Improved Outcome: Progressing Goal: Nutritional status is improving Outcome: Progressing Problem: Urinary Incontinence Goal: Perineal skin integrity is maintained or improved Outcome: Progressing Problem: Problem Interventions Goal: Assess Nutritional Intake Outcome: Progressing The patient is Moderately Stable - Low risk of patient condition declining or worsening The patient's goals for the shift include Feel Better The clinical goals for the shift include Apply BIPAP and watch for improvement in ABG Over the shift, the patient did not make progress toward the following goals. Barriers to progression include . Recommendations to address these barriers include . Images from the original note were not included. Care Management Progress Note Patient remains in CTV ICU with acute on chronic hypoxic and hypercapnic respiratory failure. Chronic trach, NIV nightly otherwise 8L trach mask, discontinuing abx, continuing steroids, and palliative care following. DCP-goal home, patient active with [facility] Discharge Milestones and Delays Expected date/time: 02/07/[address] discharge order Complete med reconciliation Case mgmt discharge readiness Clinical Stability Diagnostic Workup Patient Education Complete Expected Discharge History Expected Date/Time Set By Reviewed At 02/07/2024 Adriane Perez RN 02/04/2024 10:36 AM 02/07/2024 Adriane Perez RN 01/31/2024 10:42 AM 05/07/2024 Alayna Gaxiola MD 01/28/2024 11:27 PM 05/07/2024 Alayna Gaxiola MD 01/28/2024 9:43 PM Length of Stay (Days): 7 GMLOS: 5.2 Palliative Care Interdisciplinary Team Note: Diagnosis: Principal Problem: Status epilepticus (CMS/HCC) ([facility]) Chief Complaint: Luiza May is a 68 y.o. female with chief complaint of: status epilepticus Reason Palliative Following:Goals of Care Plan:Sign Off and goals care clear Code Status: Full Code Medications: Palliative Care Not Managing Any Medications Nursing: Residential Care and Skin Integrity Social Work: Palliative SW Requested Spiritual Care: No Unmet Needs Pharmacy: No Unmet Needs Psychology/Psychiatry: No Unmet Needs Problem: Knowledge Deficit Goal: Patient/family/caregiver demonstrates understanding of disease process, treatment plan, medications, and discharge instructions 02/03/20242056 by Jose Guadalupe Lee RN Outcome: Progressing 02/03/20242055 by Jose Guadalupe Lee RN Outcome: Not Progressing Problem: Potential for Compromised Skin Integrity Goal: Skin Integrity is Maintained or Improved 02/03/20242056 by Jose Guadalupe Lee RN Outcome: Progressing 02/03/20242055 by Jose Guadalupe Lee RN Outcome: Not Progressing Goal: Nutritional status is improving 02/03/20242056 by Jose Guadalupe Lee RN Outcome: Progressing 02/03/20242055 by Jose Guadalupe Lee RN Outcome: Not Progressing Problem: Urinary Incontinence Goal: Perineal skin integrity is maintained or improved 02/03/20242056 by Jose Guadalupe Lee RN Outcome: Progressing 02/03/20242055 by Jose Guadalupe Lee RN Outcome: Not Progressing Problem: Problem Interventions Goal: Assess Nutritional Intake 02/03/20242056 by Jose Guadalupe Lee RN Outcome: Progressing 02/03/20242055 by Jose Guadalupe Lee RN Outcome: Not Progressing The patient is Moderately Stable - Low risk of patient condition declining or worsening The patient's goals for the shift include Feel Better The clinical goals for the shift include Apply BIPAP and watch for improvement in ABG Over the shift, the patient did not make progress toward the following goals. Barriers to progression include . Recommendations to address these barriers include . Problem: Knowledge Deficit Goal: Patient/family/caregiver demonstrates understanding of disease process, treatment plan, medications, and discharge instructions 02/03/20242056 by Jose Guadalupe Lee RN Outcome: Progressing 02/03/20242055 by Jose Guadalupe Lee RN Outcome: Not Progressing Problem: Potential for Compromised Skin Integrity Goal: Skin Integrity is Maintained or Improved 02/03/20242056 by Jose Guadalupe Lee RN Outcome: Progressing 02/03/20242055 by Jose Guadalupe Lee RN Outcome: Not Progressing Goal: Nutritional status is improving 02/03/20242056 by Jose Guadalupe Lee RN Outcome: Progressing 02/03/20242055 by Jose Guadalupe Lee RN Outcome: Not Progressing Problem: Urinary Incontinence Goal: Perineal skin integrity is maintained or improved 02/03/20242056 by Jose Guadalupe Lee RN Outcome: Progressing 02/03/20242055 by Jose Guadalupe Lee RN Outcome: Not Progressing Problem: Problem Interventions Goal: Assess Nutritional Intake 02/03/20242056 by Jose Guadalupe Lee RN Outcome: Progressing 02/03/20242055 by Jose Guadalupe Lee RN Outcome: Not Progressing Called [employer] medical equipment [employer]. Patient only gets home O2 from company. BIPAP/CPAP/Trilogy machine is not rented through them. SO to bring patient's machine to room today. The patient is Moderately Stable - Low risk of patient condition declining or worsening The patient's goals for the shift include Feel Better The clinical goals for the shift include Apply BIPAP and watch for improvement in ABG Care Managment Initial Assessment Date: 02/02/2024 Patient Name: Luiza May : 1955 Patient Information Source of Information: Patient Cognition/Language: WFL - Within Functional Limits Permission given to speak with patient business office representative/caregiver as indicated: Confirmation of Payer with patient/family: Yes Payer Name: [place] : No Confirmation of Primary Care Physician: Confirmed PCP Name: Dr. Franco Seen in last 2 years?: Yes Primary Caregiver: Self If assistance needed, confirmed caregiver ready, willing and able to care for patient at discharge: Confirmed with: Living Arrangements Current Residence: House Number of Floors 1 Number of Entry Steps: 2 Bed/Bath Levels: Both first floor Facility: Facility Name: Plan to Return: Lives with: Spouse/significant other Support Systems: Spouse/significant other, Children, Family members, Home care staff Activities of Daily Living Ambulation: Independent Bathing/Dressing: Independent Elimination/Continence/Toileting: Independent Feeding: Independent Who Assists with Activities of Daily Living: Instrumental Activities of Daily Living Prescription Coverage: Yes Pharmacy Used: [facility] Medication Management: Independent Transportation/Shopping: Assistance Provider Transportation/Shopping Assistance Provider Name: [place] Transportation Mode: Car Needs Assistance with Transportation at Discharge: No Meal Preparation: Assistance Provider Meal Prep Assistance Provider Name: SU Laundry/Cleaning: Assistance Provider Laundry/Cleaning Assistance Provider Name: SU Finances/Bill Paying: Assistance Provider Finances/Bill Payer Assistance Provider Name: SU Communication: Independent Types of Care Services/Equipment Utilized Care Services: Skilled Home Health Services Care Services Provider Name: [facility]? Dialysis Type: Durable Medical Equipment: Cane, Walker, BiPap DME Provider: Linda Patient's Goal/Discharge Plan Patient expects to be discharged to: home Discharge Planning Actions: Continue to follow Patient's Choice Rights and [employer] and Collaborative Relationships Disclosed as Indicated for Post-Acute Care: Interdisciplinary Team Engagement: Home Health Care Social Work Referral for: Additional Information: Patient admitted to [facility] ICU with possible seizure activity from [facility]. Spoke with patient at bedside, PMV on (chronic trach), introduced self and role. Patient from home with SO, is independent with ambulation, SO assists with driving, cooking, cleaning, laundry and medications, has a PCP and prescription coverage, patient believes she is active with [facility]-task to [facility] to confirm, will have a ride home and patient discharge plan is home with [facility]. Adriane Perez RN Problem: Urinary Incontinence Goal: Perineal skin integrity is maintained or improved Outcome: Not Progressing Problem: Knowledge Deficit Goal: Patient/family/caregiver demonstrates understanding of disease process, treatment plan, medications, and discharge instructions Outcome: Progressing Problem: Potential for Compromised Skin Integrity Goal: Skin Integrity is Maintained or Improved Outcome: Progressing Goal: Nutritional status is improving Outcome: Progressing Problem: Problem Interventions Goal: Assess Nutritional Intake Outcome: Progressing The patient is Moderately Stable - Low risk of patient condition declining or worsening The patient's goals for the shift include Feel Better The clinical goals for the shift include Apply BIPAP and watch for improvement in ABG Problem: Urinary Incontinence Goal: Perineal skin integrity is maintained or improved Outcome: Not Progressing The patient is Moderately Unstable - Medium risk of patient condition declining or worsening The patient's goals for the shift include Feel Better The clinical goals for the shift include Trend CO2 on VBG's The patient is Moderately Unstable - Medium risk of patient condition declining or worsening The patient's goals for the shift include Improve breathing The clinical goals for the shift include Improve oxygenation, pH/ABG values with BIPAP Problem: Knowledge Deficit Goal: Patient/family/caregiver demonstrates understanding of disease process, treatment plan, medications, and discharge instructions Outcome: Not Progressing Problem: Potential for Compromised Skin Integrity Goal: Skin Integrity is Maintained or Improved Outcome: Not Progressing Goal: Nutritional status is improving Outcome: Not Progressing Problem: Urinary Incontinence Goal: Perineal skin integrity is maintained or improved Outcome: Not Progressing documented in this encounter [facility] 02-13-2024 History of Present illness Narrative Images from the original note were not included. OCCUPATIONAL THERAPY [facility] Name/MRN: Luiza May ([id number]) Date: 02/13/2024 Attempted OT tx session at this time, pt declined OOB tx at this time. Will re-attempt if time permits EILEEN Mejia Hospitalist Progress Note 02/12/2024 Subjective: Admit Date: 01/28/2024 PCP: Maryam Franco MD [facility]#: [facility] Brief Hospital course: 68 y/o F with PMH advanced COPD s/p trach from recent admission to [facility], presented 01/27 to [facility] with possible seizure. Her family called EMS when the pt had a shaking episode. A+Ox2 per EMS on arrival and pt was brought to the ER. The ER assessed and sent her home. Later in the day around 1400, the pt had another episode of shaking and was brought back again. At [facility] ED, she had a negative CTA/H and CXR. Unknown seizure history, most recent outpt notes do not have her on AEDs any longer. Family is concerned for increased delirium, primarily when she is non-compliant with her BiPAP. Patient has not been compliant with BiPAP overnight. Home machine brought in, identified as Astral 100 but unable to be used. Patient was not able to use NIV through trach due to cuff leak, tracheostomy replaced at bedside on 02/06. The patient was cleared for transfer to the floor. Interval History: 02/09/2024-No overnight issues. States she is feeling well - no SOB 02/10/2024 - pt had a good night - refused bipap - pulmonary has signed off at this time - do have snf choices in [place] area 02/11/2024 - breathing is stable - requesting low dose ambien tonight to help with sleep 02/11 - had some RUQ/flank pain overnight - RUQ ultrasound done this AM - results pending - states her breathing feels good - slept a little better Case and plan discussed with patient and bedside nurse. All questions answered. Past Medical History: Past Medical History: Diagnosis Date Asthma CAD (coronary artery disease) Cerebral artery occlusion with cerebral infarction (HCC) COPD (chronic obstructive pulmonary disease) (HCC) Hypertension Adult diet Regular 24HR INTAKE/OUTPUT: Intake/Output Summary (Last 24 hours) at 02/12/2024 09 Last data filed at 02/11/2024 1930 Gross per 24 hour Intake -- Output 800 ml Net -800 ml LABS: CBC: Recent Labs 02/10/24 0046 02/11/245 02/12/24 0516 WBC 11.3* 17.7* 14.7* RBC 3.22* 3.43* 3.96 HGB 8.4* 8.9* 10.7* HCT 28.0* 29.6* 35.3 MCV 87.0 86.3 89.1 RDW 15.7* 15.9* 15.9* PLT 245 215 297 BMP: Recent Labs 02/10/24 0046 02/11/24 0415 02/12/24 0358 NA 136 136 133* K 3.9 3.7 4.1 CL 104 103 106 CO2 30 27 20* BUN 20* 17 20* CREATININE 0.61 0.62 0.62 GLUCOSE 116* 80 91 CALCIUM 8.6 8.9 8.8 ANIONGAP 2* 6 7 LIVER PROFILE:No results for input(s): AST , ALT , BILITOT , ALKPHOS , PROT in the last 72 hours. No lab exists for component: LABALBU PT/INR: No results for input(s): PROTIME , INR in the last 72 hours. CARDIAC ENZYMES: No results for input(s): TROPONINI in the last 72 hours. Procalcitonin: No results found for: PROCAL COVID-19 PCR: No results for input(s): COVID19 in the last 72 hours. Objective: Vitals: BP 120/80 (BP Location: Left arm, Patient Position: Lying) Pulse 104 Temp 37 C (98.6 F) (Temporal) Resp 20 Ht 5' 2.99 (1.6 m) Wt 129 lb (58.5 kg) SpO2 95% BMI 22.86 kg/m Pulse Ox: SpO2 Av.4 % Min: 95 % Max: 98 % Supplemental O2: O2 Flow Rate (L/min): 5 L/min Physical Exam HENT: Head: Comments: Trach intact Mouth/Throat: Mouth: Mucous membranes are moist. Cardiovascular: Rate and Rhythm: Normal rate and regular rhythm. Pulmonary: Effort: Pulmonary effort is normal. Breath sounds: Normal breath sounds. Abdominal: General: Abdomen is flat. Bowel sounds are normal. Palpations: Abdomen is soft. Skin: General: Skin is warm. Neurological: General: No focal deficit present. Mental Status: She is alert and oriented to person, place, and time. Medications: Scheduled PRN albuterol, 2.5 mg, Nebulization, TID DULoxetine, 30 mg, Oral, Daily enoxaparin, 40 mg, SubCUTAneous, Daily famotidine, 20 mg, Oral, BID melatonin, 3 mg, Oral, Nightly mometasone-formoterol, 2 puff, Inhalation, BID potassium chloride CR, 10 mEq, Oral, Daily predniSONE, 5 mg, Oral, Daily tiotropium, 2 puff, Inhalation, Daily PRN medications: acetaminophen OR acetaminophen OR acetaminophen, alteplase (Cathflo Activase) 2 mg in sterile water 2 mL injection, guaiFENesin, hydrOXYzine pamoate, traZODone, zolpidem Continuous Assessment Data: (CAT1) Reviewed 3 or more labs/studies previously ordered by me not previously counted (each=1, panels count as 1). (LOW: 2x CAT1 or independent historian MOD: 3x CAT1 or 1x CAT3 EXTENSIVE: 3x CAT1 and 1x CAT3) Acute, acute on chronic, unstable/uncontrolled chronic problems/diagnoses: Acute on chronic hypoxic and hypercapnic respiratory failure s/p trach End stage COPD s/p trach Acute encephalopathy - resolved RUQ abdominal pain Stable chronic problems affecting care, new non-acute diagnoses: Anxiety / depression Anemia Hypokalemia Plan As a result of the above findings & factors, the following mgmt was pursued: - pt doing well on medical floor - cont pred taper - await results of RUQ ultrasound done this AM - cont bipap at night if pt allows - pulmonary has signed off - added low dose ambtye carlsonight - pt states she takes at home for sleep - mentation seems to be back to baseline - awaiting approval for snf - d/w TCC - pt likely here the weekend - am labs, replace lytes prn - PT/OT/CM/SW - delirium precautions: increase activity - DVT prophylaxis: enoxaparin and encourage ambulation Complexity: Acute illness with systemic symptoms (MOD). Risk: Prescription drug/IVF/colloid was initiated, discontinued, adjusted; or reviewed with decision to maintain current orders (MOD). Advance Directive: Full Code Anticipated Discharge - Date - 02/13 - Location - snf in [place] - Pending the following - have accepting facility - awaiting on auth Total time spent (which include face to face and non face to face encounters) : 32 minutes Extended Emergency Contact Information Primary Emergency Contact: MAY (RAUS POA)AMEENA Mobile Relation: Daughter Secondary Emergency Contact: Gene Mills Mobile Relation: Son Preferred language: [place] [employer] Dispatcher needed? No Pepe Delarosa MD Division of Hospitalist Medicine Inpatient Medical Services/[facility] [place] [place] Images from the original note were not included. PHYSICAL THERAPY [facility] Treatment Note Name/MRN: Luiza May ([id number]) Date of : 1955 Age: 68 y.o. Room[facility]Bed: [facility] A Discharge Recommendation: IP Rehab Equipment Needed: No Assessment Pt requires min assist to CGA for ambulation with FWW, min assist without a device. Several standing rest breaks needed. No PT goals met this session. Recommend IP rehab at discharge Subjective Pt is supine in the bed, agrees to PT. Pain: Pt denies any current pain. Medical Precautions: No active isolations Proper PPE donned/doffed in accordance with facility standards. Fall Risk: Garcia Fall Risk Score: 30 (Medium Risk) Precautions/Restrictions: Seizure Precautions Lines/Drains/Airways: trach to trach mask, PIV Overall Cognitive Status: WNL Overall Orientation Status: Oriented x4 Family/Caregiver Present: none Objective Bed Mobility Supine to sit: Supervision Sit to supine: Supervision Transfers/Mobility Sit to stand: Min Assist Stand to sit: Contact Guard, Min Assist From EOB and toilet Device(s) used: Front wheeled walker Ambulation Ambulation 1 (O2 via trach mask) Assistive device(s) used: Front wheeled walker Assist level: Contact Guard, Min Assist Distance (ft): 70 ft x 4 Ambulation 2 5 ft x 2 without device with hand held assist x 1 Quality of gait: several standing rest breaks needed Balance During Session: Pt stood at sink to wash and dry her hands along with comb her hair Plan Continue acute PT per plan of care. Safety/Education Safety Safety Devices in place: All fall risk precautions in place, call light within reach, left in bed, and no alarms engaged upon entry Restraints: No Education Education Given To: patient Education Provided: PT Role, PT Goals, Gait Training, Plan of Care, Transfer Training, and Discharge Recommendations Education Method: Verbal Barriers to Learning: None Education Outcome: Verbalized Understanding Outcome Measures AM-PAC AM-PAC Inpatient Mobility Raw Score (No Stairs) : 17 JH-HLM -HLM Score: Walked 250 ft or more (i.e. several laps on unit) Goals Patient Stated Goal: Go home. Encounter Problems Encounter Problems (Active) Mobility Patient will ambulate 100 feet with modified independence and least restrictive device in order to improve safety and independence with mobility. (Progressing) Start: 02/03/24 Expected End: 03/02/24 Transfers Patient will perform bed mobility with modified independence in order to improve independence and prepare for out of bed mobility. (Progressing) Start: 02/03/24 Expected End: 03/02/24 Patient will complete sit to stand transfer with modified independence to least restrictive device in order to improve safety and prepare for out of bed mobility. (Progressing) Start: 02/03/24 Expected End: 03/02/24 Therapy Time Individual Co-treatment Time In 1049 Time Out 1120 Minutes 31 Timed Code Treatment Minutes: (GT, FA) Huong Bills PTA Hospitalist Progress Note 02/11/2024 Subjective: Admit Date: 01/28/2024 PCP: Maryam Franco MD Room#: [id number]/[id number] A Brief Hospital course: 68 y/o F with PMH advanced COPD s/p trach from recent admission to [facility], presented 01/27 to [facility] with possible seizure. Her family called EMS when the pt had a shaking episode. A+Ox2 per EMS on arrival and pt was brought to the ER. The ER assessed and sent her home. Later in the day around 1400, the pt had another episode of shaking and was brought back again. At [facility] ED, she had a negative CTA/H and CXR. Unknown seizure history, most recent outpt notes do not have her on AEDs any longer. Family is concerned for increased delirium, primarily when she is non-compliant with her BiPAP. Patient has not been compliant with BiPAP overnight. Home machine brought in, identified as Astral 100 but unable to be used. Patient was not able to use NIV through trach due to cuff leak, tracheostomy replaced at bedside on 02/06. The patient was cleared for transfer to the floor. Interval History: 02/09/2024-No overnight issues. States she is feeling well - no SOB 02/10/2024 - pt had a good night - refused bipap - pulmonary has signed off at this time - do have snf choices in [place] area 02/11/2024 - breathing is stable - requesting low dose ambien tonight to help with sleep Case and plan discussed with patient and bedside nurse. All questions answered. Past Medical History: Past Medical History: Diagnosis Date Asthma CAD (coronary artery disease) Cerebral artery occlusion with cerebral infarction (HCC) COPD (chronic obstructive pulmonary disease) (HCC) Hypertension Adult diet Regular 24HR INTAKE/OUTPUT: Intake/Output Summary (Last 24 hours) at 02/11/2024 1133 Last data filed at 02/10/2024 1800 Gross per 24 hour Intake 200 ml Output -- Net 200 ml LABS: CBC: Recent Labs 02/09/24 0525 02/10/24 0046 02/11/24 0415 WBC 9.8 11.3* 17.7* RBC 3.49* 3.22* 3.43* HGB 9.3* 8.4* 8.9* HCT 30.2* 28.0* 29.6* MCV 86.5 87.0 86.3 RDW 15.6* 15.7* 15.9* PLT 249 245 215 BMP: Recent Labs 02/09/24 0525 02/10/24 0046 02/11/24 0415 NA 137 136 136 K 3.6 3.9 3.7 CL 102 104 103 CO2 32* 30 27 BUN 13 20* 17 CREATININE 0.58 0.61 0.62 GLUCOSE 89 116* 80 CALCIUM 8.9 8.6 8.9 ANIONGAP 3 2* 6 LIVER PROFILE:No results for input(s): AST , ALT , BILITOT , ALKPHOS , PROT in the last 72 hours. No lab exists for component: LABALBU PT/INR: No results for input(s): PROTIME , INR in the last 72 hours. CARDIAC ENZYMES: No results for input(s): TROPONINI in the last 72 hours. Procalcitonin: No results found for: PROCAL COVID-19 PCR: No results for input(s): COVID19 in the last 72 hours. Objective: Vitals: BP 141/69 Pulse 94 Temp 36.8 C (98.3 F) (Temporal) Resp 18 Ht 5' 2.99 (1.6 m) Wt 129 lb (58.5 kg) SpO2 98% BMI 22.86 kg/m Pulse Ox: SpO2 Av.1 % Min: 95 % Max: 98 % Supplemental O2: O2 Flow Rate (L/min): 5 L/min Physical Exam HENT: Head: Comments: Trach intact Mouth/Throat: Mouth: Mucous membranes are moist. Cardiovascular: Rate and Rhythm: Normal rate and regular rhythm. Pulmonary: Effort: Pulmonary effort is normal. Breath sounds: Normal breath sounds. Abdominal: General: Abdomen is flat. Bowel sounds are normal. Palpations: Abdomen is soft. Skin: General: Skin is warm. Neurological: General: No focal deficit present. Mental Status: She is alert and oriented to person, place, and time. Medications: Scheduled PRN albuterol, 2.5 mg, Nebulization, TID DULoxetine, 30 mg, Oral, Daily enoxaparin, 40 mg, SubCUTAneous, Daily famotidine, 20 mg, Oral, BID melatonin, 3 mg, Oral, Nightly mometasone-formoterol, 2 puff, Inhalation, BID potassium chloride CR, 15 mEq, Oral, Daily [START ON 02/12/2024] predniSONE, 5 mg, Oral, Daily sodium chloride 0.9%, 5-40 mL, IntraCATHeter, q8h tiotropium, 2 puff, Inhalation, Daily PRN medications: acetaminophen OR acetaminophen OR acetaminophen, alteplase (Cathflo Activase) 2 mg in sterile water 2 mL injection, guaiFENesin, hydrOXYzine pamoate, sodium chloride 0.9%, traZODone Continuous Assessment Data: (CAT1) Reviewed 3 or more labs/studies previously ordered by me not previously counted (each=1, panels count as 1). (LOW: 2x CAT1 or independent historian MOD: 3x CAT1 or 1x CAT3 EXTENSIVE: 3x CAT1 and 1x CAT3) Acute, acute on chronic, unstable/uncontrolled chronic problems/diagnoses: Acute on chronic hypoxic and hypercapnic respiratory failure s/p trach End stage COPD s/p trach Acute encephalopathy - resolved Stable chronic problems affecting care, new non-acute diagnoses: Anxiety / depression Anemia Hypokalemia Plan As a result of the above findings & factors, the following mgmt was pursued: - pt doing well on medical floor - cont pred taper - cont bipap at night if pt allows - pulmonary has signed off - will add low dose ambien tonight - pt states she takes at home for sleep - mentation seems to be back to baseline - awaiting approval for snf - d/w TCC - pt likely here the weekend - am labs, replace lytes prn - PT/OT/CM/SW - delirium precautions: increase activity - DVT prophylaxis: enoxaparin and encourage ambulation Complexity: Acute illness with systemic symptoms (MOD). Risk: Prescription drug/IVF/colloid was initiated, discontinued, adjusted; or reviewed with decision to maintain current orders (MOD). Advance Directive: Full Code Anticipated Discharge - Date - 02/13 - Location - snf in [place] - Pending the following - have accepting facility - awaiting on auth Total time spent (which include face to face and non face to face encounters) : 32 minutes Extended Emergency Contact Information Primary Emergency Contact: YADIRA WARD (RAUS)AMEENA Bustillos Mobile Relation: Daughter Secondary Emergency Contact: Gene Mills Mobile Relation: Son Preferred language: [place] [employer] Dispatcher needed? No Pepe Delarosa MD Division of Hospitalist Medicine Inpatient Medical Services/[facility] [place], [place] Images from the original note were not included. OCCUPATIONAL THERAPY [facility] Treatment Note Name/MRN: Luiza May ([id number]) Date of : 1955 Age: 68 y.o. Room/Bed: W7-735/W7-735 A Discharge Recommendation: IP Rehab Equipment Needed: (continue to assess) Prior Level of Function ADL Assistance: Independent Ambulation Assistance: Independent Transfer Assistance: Independent Assessment Self feeding, grooming, UE bathing, LE dressing and bed mobility supv. LE bathing CGA. Pt. Is making good progress in OT but fatigues quickly and SOB easily with increased activity. Pt's spouse has a slipped disk and unable to assist per pt. OT recommends IP Rehab at discharge. Subjective Pt. Returned back to bed at the end of OT. Pt. Is very pleasant and agreeable to OT. Pt. Is A & O x 3. Pain: Pt denies any current pain. Medical Precautions: No active isolations Proper PPE donned/doffed in accordance with facility standards. Fall Risk: Garcia Fall Risk Score: 30 (Medium Risk) Precautions/Restrictions: Seizure Precautions Lines/Drains/Airways: trach to trach mask, PIV Family/Caregiver Present: none Objective ADLs-performed sitting EOB LE Dressing: SBA- to don/doff socks sitting EOB Grooming: Supervision to wash/dry hands and face, used shampoo cap, dry and combed hair. Also brushed teeth. UE Dressing: Min assist to doff/don hospital gown Feeding: Supervision to open all container LE Bathing: Contact Guard to wash feet and bottom UE bathing supv to wash chest, arms and stomach Bed Mobility Supine to sit: Supervision Sit to supine: Supervision Rolling to right: Supervision Rolling to left: Supervision Scooting: Supervision Transfers/Mobility Sit to stand: Contact Guard Stand to sit: Contact Guard Sitting balance: Supervision Standing balance: Contact Guard Using FWW Device(s) used: Front wheeled walker Cognition - Arousal/alertness: appropriate responses to stimuli - Following commands: follows one step commands consistently - Attention span: appears intact - Memory: appears intact - Safety judgement: good awareness of safety precautions - Insights: fully aware of deficits - Initiation: does not require cues - Sequencing: requires cues for some Pt. Has cataracts and has vision issues Pt. Educated on using a spirometer 10 times every hour awake. Plan Continue acute OT per plan of care. Safety/Education Safety Safety Devices in place: All fall risk precautions in place, call light within reach, left in bed, gait belt, patient at risk for falls, nurse notified, and no alarms engaged upon entry Restraints: No Education Education Given To: patient Education Provided: OT Role, Plan of Care, ADL Adaptive Strategies, Transfer Training, Orientation, and Fall Prevention Education Education Method: Verbal and Demonstration Barriers to Learning: Vision Education Outcome: Verbalized Understanding, Demonstrated Understanding, and Continued Education Needed AM-PAC AM-PAC Inpatient Daily Activity Raw Score: 19 ADL Inpatient CMS G-Code Modifier: CK Goals Patient Stated Goal: to get stronger Encounter Problems Encounter Problems (Active) Balance Patient will maintain dynamic standing balance for 5-7 minutes with modified independence in order to demonstrate decreased risk of falling. (Progressing) Start: 02/07/24 Expected End: 03/06/24 Bathing Patient will utilize adaptive techniques to bathe body [place]. (Progressing) Start: 02/07/24 Expected End: 03/06/24 Dressing Upper Extremities Patient will complete upper body dressing [place]. (Progressing) Start: 02/07/24 Expected End: 03/06/24 Dressings Lower Extremities Patient will dress lower body [place]. (Progressing) Start: 02/07/24 Expected End: 03/06/24 OT Misc Patient will demonstrate 3-5 energy conservation techniques to increase independence with self-care tasks and functional mobility. (Progressing) Start: 02/07/24 Expected End: 03/06/24 Toileting Patient will complete toileting tasks at standard toilet with modified independence. (Not Addressed) Start: 02/07/24 Expected End: 03/06/24 Therapy Time Individual Co-treatment Time In 955 Time Out 1045 Minutes 49 Timed Code Treatment Minutes: 49 Minutes (selfcare-2, ther act-1) E[facility] Respiratory Care Department Progress Note Comment or reasoning for refusal: Patient was seen in attempts to fulfill CPAP/BiPAP/AutoPAP order. Patient refused PAP therapy/study at this time. Patient was educated on medical need and reasoning for physician order to ensure patient was making an informed medical decision. All of the patient's questions were answered at this time and patient was informed that if the patient changes their mind regarding wearing PAP to hit their call light or inform their nurse to contact Respiratory. A second, consecutive night of refusing PAP therapy/study results in order completion in the EMR. If future CPAP/BiPAP/AutoPAP therapy or study is indicated please place another order in the EMR and the assigned Respiratory Therapist will reattempt to fulfill orders. Reason for refusal: pt states she will just take it off if I put it on, states she doesn't wear it much at home either Thank you for involving Respiratory in the care of this patient, ' Hospitalist Progress Note 02/10/2024 Subjective: Admit Date: 01/28/2024 PCP: Maryam Franco MD Room#: W7-735/W7-735 A Brief Hospital course: 68 y/o F with PMH advanced COPD s/p trach from recent admission to [facility], presented 01/27 to [place] with possible seizure. Her family called EMS when the pt had a shaking episode. A+Ox2 per EMS on arrival and pt was brought to the ER. The ER assessed and sent her home. Later in the day around 1400, the pt had another episode of shaking and was brought back again. At [place] ED, she had a negative CTA/H and CXR. Unknown seizure history, most recent outpt notes do not have her on AEDs any longer. Family is concerned for increased delirium, primarily when she is non-compliant with her BiPAP. Patient has not been compliant with BiPAP overnight. Home machine brought in, identified as Astral 100 but unable to be used. Patient was not able to use NIV through trach due to cuff leak, tracheostomy replaced at bedside on 02/06. The patient was cleared for transfer to the floor. Interval History: 02/09/2024-No overnight issues. States she is feeling well - no SOB 02/10/2024 - pt had a good night - refused bipap - pulmonary has signed off at this time - do have snf choices in [place] area Case and plan discussed with patient and bedside nurse. All questions answered. Past Medical History: Past Medical History: Diagnosis Date Asthma CAD (coronary artery disease) Cerebral artery occlusion with cerebral infarction (HCC) COPD (chronic obstructive pulmonary disease) (HCC) Hypertension Adult diet Regular 24HR INTAKE/OUTPUT: Intake/Output Summary (Last 24 hours) at 02/10/2024 114 Last data filed at 02/09/20242029 Gross per 24 hour Intake -- Output 600 ml Net -600 ml LABS: CBC: Recent Labs 02/08/2445602/09/24 0502/10/24 0046 WBC 9.3 9.8 11.3* RBC 3.29* 3.49* 3.22* HGB 8.7* 9.3* 8.4* HCT 28.3* 30.2* 28.0* MCV 86.0 86.5 87.0 RDW 15.4* 15.6* 15.7* PLT 227 249 245 BMP: Recent Labs 02/08/2445602/09/24 0502/10/24 0046 NA 138 137 136 K 3.3* 3.6 3.9 CL 103 102 104 CO2 31* 32* 30 BUN 20* 13 20* CREATININE 0.64 0.58 0.61 GLUCOSE 92 89 116* CALCIUM 8.7 8.9 8.6 ANIONGAP 3 3 2* LIVER PROFILE:No results for input(s): AST , ALT , BILITOT , ALKPHOS , PROT in the last 72 hours. No lab exists for component: LABALBU PT/INR: No results for input(s): PROTIME , INR in the last 72 hours. CARDIAC ENZYMES: No results for input(s): TROPONINI in the last 72 hours. Procalcitonin: No results found for: PROCAL COVID-19 PCR: No results for input(s): COVID19 in the last 72 hours. Objective: Vitals: BP 117/59 Pulse 84 Temp 36.3 C (97.4 F) (Temporal) Resp 18 Ht 5' 2.99 (1.6 m) Wt 129 lb (58.5 kg) SpO2 95% BMI 22.86 kg/m Pulse Ox: SpO2 Av.6 % Min: 94 % Max: 99 % Supplemental O2: O2 Flow Rate (L/min): 5 L/min Physical Exam HENT: Head: Comments: Trach intact Mouth/Throat: Mouth: Mucous membranes are moist. Cardiovascular: Rate and Rhythm: Normal rate and regular rhythm. Pulmonary: Effort: Pulmonary effort is normal. Breath sounds: Normal breath sounds. Abdominal: General: Abdomen is flat. Bowel sounds are normal. Palpations: Abdomen is soft. Skin: General: Skin is warm. Neurological: General: No focal deficit present. Mental Status: She is alert and oriented to person, place, and time. Medications: Scheduled PRN albuterol, 2.5 mg, Nebulization, TID DULoxetine, 30 mg, Oral, Daily enoxaparin, 40 mg, SubCUTAneous, Daily famotidine, 20 mg, Oral, BID melatonin, 3 mg, Oral, Nightly mometasone-formoterol, 2 puff, Inhalation, BID potassium chloride CR, 15 mEq, Oral, Daily predniSONE, 10 mg, Oral, Daily Followed by [START ON 02/12/2024] predniSONE, 5 mg, Oral, Daily sodium chloride 0.9%, 5-40 mL, IntraCATHeter, q8h tiotropium, 2 puff, Inhalation, Daily PRN medications: acetaminophen OR acetaminophen OR acetaminophen, alteplase (Cathflo Activase) 2 mg in sterile water 2 mL injection, guaiFENesin, hydrOXYzine pamoate, sodium chloride 0.9%, traZODone Continuous Assessment Data: (CAT1) Reviewed 3 or more labs/studies previously ordered by me not previously counted (each=1, panels count as 1). (LOW: 2x CAT1 or independent historian MOD: 3x CAT1 or 1x CAT3 EXTENSIVE: 3x CAT1 and 1x CAT3) Acute, acute on chronic, unstable/uncontrolled chronic problems/diagnoses: Acute on chronic hypoxic and hypercapnic respiratory failure s/p trach End stage COPD s/p trach Acute encephalopathy - resolved Stable chronic problems affecting care, new non-acute diagnoses: Anxiety / depression Anemia Hypokalemia Plan As a result of the above findings & factors, the following mgmt was pursued: - pt doing well on medical floor - cont pred taper - cont bipap at night if pt allows - pulmonary has signed off - mentation seems to be back to baseline - awaiting approval for snf - am labs, replace lytes prn - PT/OT/CM/SW - delirium precautions: increase activity - DVT prophylaxis: enoxaparin and encourage ambulation Complexity: Acute illness with systemic symptoms (MOD). Risk: Prescription drug/IVF/colloid was initiated, discontinued, adjusted; or reviewed with decision to maintain current orders (MOD). Advance Directive: Full Code Anticipated Discharge - Date - 02/10 - Location - snf in [place] - Pending the following - facility acceptance - pt medically ready for dc Total time spent (which include face to face and non face to face encounters) : 41 minutes Extended Emergency Contact Information Primary Emergency Contact: YOVANNYJAVAD LALZenaida GeigerAMEENA GLEASON Mobile Relation: Daughter Secondary Emergency Contact: [employer]Gene Mobile Relation: Son Preferred language: [place] [employer] Dispatcher needed? No Pepe Delarosa MD Division of Hospitalist Medicine Inpatient Medical Services/[facility] Pulmonary and Sleep Medicine Patient - Luiza May, Age - 68 y.o. - 1955 Room Number - @[email or web address]@ Consulting - Pepe Delarosa MD Primary Care Physician - [id number] Date of Admission - 01/28/2024 6:42 PM Hospital Day - 13 Subjective/Events Past 24 hours/ROS Hospital course: PMHx of COPD/seizures and trach. She presented to the ER on 01/28/24 for possible seizure. Her family called EMS when the pt had a shaking episode. A+Ox2 per EMS on arrival and pt was brought to the ER. This was around 1000. The ER assessed and sent her home. Later in the day around 1400, the pt had another episode of shaking and was brought back again. At [place] ER, she has had a negative CTA head. Negative CXR. No leukocytosis but L shift is present. INR of 1. Creat 0.93. No LA. She was noted to be hypercapneic, started on NIV. Family reports increasing delirium recently, suspicious that BiPAP is not being used consistently. Transitioned trach to vent on 01/28. Started on Vanc/Cefepime (course planned through 02/03) for HAP. Home machine brought in, identified as Astral 100 but unable to be used. Patient was not able to use NIV through trach due to cuff leak, tracheostomy replaced at bedside on 02/06. VBG has been compensated since wearing AutBIPAP here, but has been very inconsistent. Interval events: Refused BiPAP last night. Feels her breathing is better, back to baseline. Still coughing a little, denies sputum production. Denies wheezing. Patient denies pain, fever, chills, nausea, vomiting, chest pain or pressure, heart palpitations, LE edema, diarrhea or constipation. All other systems reviewed Objective Vitals Vitals: BP 117/59 Pulse 85 Temp 36.3 C (97.4 F) (Temporal) Resp 19 Ht 5' 2.99 (1.6 m) Wt 129 lb (58.5 kg) SpO2 97% BMI 22.86 kg/m Pulse Ox: SpO2 Av.8 % Min: 94 % Max: 99 % Supplemental O2: O2 Flow Rate (L/min): 5 L/min I/O 24HR INTAKE/OUTPUT: Intake/Output Summary (Last 24 hours) at 02/10/2024 1112 Last data filed at 02/09/2024 2030 Gross per 24 hour Intake -- Output 600 ml Net -600 ml @[id number]@ Exam General Appearance Awake, alert, oriented, in no acute distress. SpO2 93% on 6L trach mask. FiO2 28% HEENT - normocephalic, atraumatic, sclarea is anicteric, conjunctiva is pink, nasal mucosa is normal, no congestion, external ears are intact. Neck - Supple, trachea midline, full range of motion. Lungs Normal effort, CTAB, no wheezing, crackles or rhonchi noted. Cardiovascular - Heart sounds are normal. Regular rate and rhythm, without murmurs, rubs or gallops Abdomen - Soft, nontender, nondistended, no masses or organomegaly Neurologic - Awake, alert, follows commands. Cranial nerves II-XII are intact, There are no focal motor deficits grossly Skin - No bruising or bleeding, normal turgor, no rashes or lesions Extremities - No clubbing, cyanosis, no edema Psychiatric: appropriate, oriented to person, place and time/date Meds albuterol, 2.5 mg, Nebulization, TID DULoxetine, 30 mg, Oral, Daily enoxaparin, 40 mg, SubCUTAneous, Daily famotidine, 20 mg, Oral, BID melatonin, 3 mg, Oral, Nightly mometasone-formoterol, 2 puff, Inhalation, BID potassium chloride CR, 15 mEq, Oral, Daily predniSONE, 10 mg, Oral, Daily Followed by [START ON 02/12/2024] predniSONE, 5 mg, Oral, Daily sodium chloride 0.9%, 5-40 mL, IntraCATHeter, q8h tiotropium, 2 puff, Inhalation, Daily PRN medications: acetaminophen OR acetaminophen OR acetaminophen, alteplase (Cathflo Activase) 2 mg in sterile water 2 mL injection, guaiFENesin, hydrOXYzine pamoate, sodium chloride 0.9%, traZODone Labs CBC Recent Labs 02/10/24 0046 WBC 11.3* HGB 8.4* HCT 28.0* MCV 87.0 PLT 245 BMP: Recent Labs 02/10/24 0046 NA 136 K 3.9 CL 104 CO2 30 BUN 20* CREATININE 0.61 GLUCOSE 116* LIVER PROFILE No results for input(s): AST , ALT , LIPASE , AMYLASE , BILIDIR , BILITOT , ALKPHOS in the last 72 hours. No lab exists for component: LB INR No results found for: INR , PROTIME PTT No results found for: APTT PROCAL: No results found for: PROCAL ABG: No results for input(s): PH , PCO2 , PO2 , HCO3 , O2SAT in the last 72 hours. No components found for: IFIO2 , MODE , SETTIDVOL , SETPEEP Cultures 01/28/24 Sputum Cx: Lab Results Component Value Date RESPCULT Few respiratory ailyn present. 01/28/2024 RESPCULT Moderate Pseudomonas aeruginosa (A) Susceptibility Pseudomonas aeruginosa BROTH MICRODILUTION Cefepime <=1 ug/ml Susceptible Ciprofloxacin <=0.25 ug/ml Susceptible Gentamicin <=1 ug/ml Susceptible Meropenem <=0.25 ug/ml Susceptible Piperacillin / Tazobactam 8 ug/ml Susceptible 01/28/24 Blood culture #2: no growth at 5 days 01/28/24 Blood culture #1: no growth at 5 days 01/28/24 Pneumonia PCR panel: + for pseudomonas, Moraxella, Staph Aureus, mecA Radiology CXR 02/07/24: No acute cardiopulmonary disease. CTA chest 09/27/2023: Minimal bilateral pleural effusions and adjacent slight infiltrate or atelectasis. Reviewed (See actual reports for details) Active Hospital Problem List @[id number]@ Assessment and Plan Acute on chronic hypoxic and hypercapnic respiratory failure- 2/2 polymicrobial LRTI and AECOPD. Sating well on trach mask, no hypoxia with ambulation. On home settings. - Continue trach mask on current settings. - Continue Nocturnal BiPAP- long discussion regarding diagnosis of severe COPD, persistent hypercarbia, hx of confusion. Patient is willing to try to wear BiPAP at home. Seizure-like activity?: family notes these episodes when she is not wearing her BIPAP. Most likely shaking 2/2 hypercarbia. On Keppra. COPD exacerbation- symptoms improved, feels back to baseline. Hx of severe COPD. - Continue Dulera, Spiriva, Albuterol nebs PRN - Continue prednisone taper, currently on 10 mg daily. - Would benefit from outpatient PFT's and pulmonary rehab Hx of prior stroke: bi hemispheric MCA strokes, atrophy and encephalomalacia. Also hx of traumatic SDH. hx of cognitive decline at home, may have component of dementia. Hypercarbia likely contributes to encephalopathy. Geriatrics following. Hx of ETOH abuse Dispo- No further pulmonary interventions planned this admission. Pulmonary to sign off. Please call with questions. Follow-up appointment scheduled for 02/21/24 at 10:10 am with Farzaneh Cao PA-C. DVT prophylaxis: [] Lovenox [] Heparin [] SCDs [x] Encourage ambulation [] Already on Anticoagulation Advance Directive: Full Code Discharge planning: TBD 35 minutes personally spent assessing and managing the patient on 02/10/2024 Case discussed with nurse and patient/family. Questions and concerns addressed. 02/10/24 0037 Oxygen Therapy/Pulse Ox Oxygen Therapy Supplemental oxygen O2 Delivery Method Trach mask FiO2 (%) 28 % O2 Flow Rate (L/min) 5 L/min Heart Rate 91 Resp 18 SpO2 95 % Patient Activity During SpO2 Measurement At rest Patient declines to use NIV. She is also non-compliant at home. States she unknowingly will pull it off while she sleeps. Patient currently stable on her trach mask. Nutrition Assessment Type and Reason for Visit: Reassess Nutrition Recommendations/Plan: Recommend continue a Regular diet, pt eating well with no issues. Per MNT protocol, will discontinue vanilla magic cups d/t pt dislike. She does not feel she needs ONS at this time d/t adequate PO intake. Weight stable, will continue to monitor. Monitor weight, labs, I/Os, skin integrity and overall nutrition status. RD to follow up weekly. Malnutrition Assessment: Malnutrition Status: At risk for malnutrition (Comment) (trach dependent, on a regular diet eating very well.) Context: Acute Illness Findings of the 6 clinical characteristics of malnutrition: Energy Intake: No significant decrease in energy intake (Pt eating >50% of multiple meals daily. Reports very good appetite and getting more than enough to eat.) Weight Loss: No significant weight loss (Pt's UBW prior to trach/PEG 10/2023 was ~125# (stated and per chart). Her weight has remained stable ~130# since that time. Current weight 129# standing scale 02/06) Body Fat Loss: No significant body fat loss Muscle Mass Loss: No significant muscle mass loss Fluid Accumulation: No significant fluid accumulation Software Requirements Engineer Strength: Not Performed Nutrition Assessment: 68yo F with PMHx COPD, CAD, HFrEF, HTN, ETOH Abuse, Seizure Disorder/Bihemispheric MCA strokes/Traumatic SDH (08/2023), Acute on Chronic Hypoxic Respiratory Failure s/p trach & PEG (10/04/23 Multifactorial 2/2 MSSA PNA, COPD/asthma, VCD/stenosis) who remains admitted since 01/27 d/t increased delerium, acute encephalopathy and possible seizure (A&O x 4 at baseline). At baseline trach is capped and patient is supposed to wear bipap at bedtime, however pt non-compliant with BIPAP and course has been c/b acute on chronic hypoxic and hypercapnic respiratory failure 2/2 polymicrobial LRTI and AECOPD. She required pressors and trach to vent 01/28 for hypotension and hypoxia, as well as precedex for agitation. Transitioned to trach mask 01/31 with PAP at night. BELT REPAIRER evaluated 02/01 with recs for Regular/thin and no acute BELT REPAIRER therapy. Completed course of Vanc/Cefepime and 5 day course of steroids 02/03. Palliative Care and Geriatrics evaluated--family with concerns for dementia and memory problems with decline in the past few months. Pt to remain full code, Palliative Care signed off 02/06. S/p trach exchange 02/06 d/t leaking cuff. Transferred to [facility] 02/07, continues on PO prednisone taper and aerosols. Pt still with PAP non-compliance. Pulmonology following. In terms of nutrition, pt was NPO 01/27-01/31 d/t increased O2 requirements (trach to vent) however has remained on a Regular diet since 02/01 per web publisher recommendations. PO intake appears adequate per flowsheet documentation (mostly >50% multiple meals daily). Per chart review of weight hx, pt's UBW prior to trach & PEG 10/2023 varied between 120-140# (noted pt stated a UBW of 125# on 10/11/23) and since trach placement her weight has remained stable ~130#: 11/10 135#, 12/01 130#, 12/23 130#, 01/02 129#, 01/27 131# and her CBW as of 02/06 was 129# standing scale. RD visited pt this AM. She reports she is eating very well and getting more than enough to eat. She dislikes the magic cups and confirms that she dislikes Ensure. She does not feel she needs ONS at this time d/t eating well. Estimated Daily Nutrient Needs: Energy Requirements Based On: Kcal/kg Weight Used for Energy Requirements: Admission (25-30 kcal/kg) Weight for Energy Calculation (kg): 59.8 kg Total Energy Requirements (kcals/day): 8199-3547 Weight Used for Protein Requirements: Admission (1.0-1.2 g/kg) Weight in Kg Used for Protein Requirements: 59.8 kg Estimated Total Protein (g/day): 60-72 Estimated Daily Total Fluid (ml/day): per MD Nutrition Related Findings: Nacho = 20, GI = bm /, I/O-, Labs reviewed, Meds: Prednisone Wound Type: None Current Nutrition Therapies: Adult diet Regular Current Oral Intake Average Meal Intake: 1-25%, 51-75%, 76-100% Average Supplements Intake: 0% Anthropometric Measures: Height: 160 cm (5' 2.99 ) Current Body Weight: 58.5 kg (128 lb 15.5 oz) (02/06 standing scale) Admission Body Weight: 59.8 kg (131 lb 13.4 oz) (01/27 bed) Usual Body Weight: (119# on 02/05/23, 133# on 05/24/23, 130# on 12/24/23) Ramona Body Weight (lbs) (Calculated): 115 lbs Ramona Body Weight (Kg) (Calculated): 52 kg % Ramona Body Weight (Calculated): 112.1 % BMI (kg/m2) (Calculated): 22.9 BMI Categories: Normal Weight (BMI 22.0 to 24.9) age over 65 Nutrition Interventions: Nutrition Education/Counseling: No recommendation at this time Coordination of Nutrition Care: Continue to monitor while inpatient Goals: Goals: PO intake 75% or greater, prior to discharge Nutrition Monitoring and Evaluation: Behavioral-Environmental Outcomes: None Identified Food/Nutrient Intake Outcomes: Food and Nutrient Intake Physical Signs/Symptoms Outcomes: Biochemical Data, Nutrition Focused Physical Findings, Weight, Skin, GI Status, Meal Time Behavior Discharge Planning: Continue current diet Joanie Lopez RD Contact: [phone] Images from the original note were not included. PHYSICAL THERAPY [facility] Treatment Note Name/MRN: Luiza May ([id number]) Date of : 1955 Age: 68 y.o. Room/Bed: W735/[facility]73 A Discharge Recommendation: IP Rehab Equipment Needed: No Assessment Patient is progressing with mobility but still limited functionally due to decreased endurance and weakness and would benefit from continued PT intervention. Patient was able to increase total ambulation distance but required standing rests with each ambulation trial. Recommend IP rehab at discharge. Subjective Patient in bed. She is agreeable to PT. Pain: Pt denies any current pain. Medical Precautions: No active isolations Proper PPE donned/doffed in accordance with facility standards. Fall Risk: Garcia Fall Risk Score: 10 (Low Risk) Precautions/Restrictions: Seizure Precautions Lines/Drains/Airways: trach to trach mask Overall Cognitive Status: WFL Overall Orientation Status: Oriented x4 Family/Caregiver Present: none Objective Bed Mobility Supine to sit: SBA Sit to supine: SBA Scooting: SBA, supine and seated scoot Transfers/Mobility Sit to stand: Contact Guard, 4 reps Stand to sit: Contact Guard, 4 reps Toilet: Contact Guard, with grab bar Device(s) used: Front wheeled walker Ambulation Ambulation 1 Assistive device(s) used: Front wheeled walker Assist level: Contact Guard Distance (ft): 20, 125 (1 standing rest at about 75 feet), 125 (1 standing rest at about 25 feet) O2 saturation 94-96% during ambulation trials. Patient on O2 via trach mask 15L/50%. Quality of gait: slow matt; cues to increase step height due to decreased foot clearance with swing through at times - especially with R LE, assist with walker management with turns and negotiating obstructed areas Seated rest prior to second ambulation trial. Ambulation 2 Assistive device(s) used: Front wheeled walker Assist level: Contact Guard Distance (ft): 350 standing rests about every 75 feet Quality of gait: same as trial 1. O2 saturation same as Ambulation trial 1. Ambulation 3 Assistive device(s) used: Front wheeled walker Assist level: Contact Guard Distance (ft): 25 Quality of gait: Same as trial 1 & 2; cues to stay with walker when reaching sitting surface Plan Continue acute PT per plan of care. Safety/Education Safety Safety Devices in place: call light within reach, left in bed, gait belt, and no alarms engaged upon entry Restraints: No Education Education Given To: patient Education Provided: Plan of Care Education Method: Verbal Barriers to Learning: None Education Outcome: Verbalized Understanding Outcome Measures AM-PAC AM-PAC Inpatient Mobility Raw Score (No Stairs) : 17 JH-HLM JH-HLM Score: Walked 250 ft or more (i.e. several laps on unit) Goals Patient Stated Goal: Go home. Encounter Problems Encounter Problems (Active) Mobility Patient will ambulate 100 feet with modified independence and least restrictive device in order to improve safety and independence with mobility. (Progressing) Start: 02/03/24 Expected End: 03/02/24 Transfers Patient will perform bed mobility with modified independence in order to improve independence and prepare for out of bed mobility. (Progressing) Start: 02/03/24 Expected End: 03/02/24 Patient will complete sit to stand transfer with modified independence to least restrictive device in order to improve safety and prepare for out of bed mobility. (Progressing) Start: 02/03/24 Expected End: 03/02/24 Therapy Time Individual Co-treatment Time In 1034 Time Out 1127 Minutes 53 Timed Code Treatment Minutes: 45 Minutes (FA, GT x 2) Variance: 8 Reason: (obtaining working oximeter) Maribel Murdock PT Hospitalist Progress Note 02/09/2024 Subjective: Admit Date: 01/28/2024 PCP: Maryam Franco MD [facility]#: [facility] A Brief Hospital course: 68 y/o F with PMH advanced COPD s/p trach from recent admission to [facility], presented 01/27 to [facility] with possible seizure. Her family called EMS when the pt had a shaking episode. A+Ox2 per EMS on arrival and pt was brought to the ER. The ER assessed and sent her home. Later in the day around 1400, the pt had another episode of shaking and was brought back again. At [facility] ED, she had a negative CTA/H and CXR. Unknown seizure history, most recent outpt notes do not have her on AEDs any longer. Family is concerned for increased delirium, primarily when she is non-compliant with her BiPAP. Patient has not been compliant with BiPAP overnight. Home machine brought in, identified as Astral 100 but unable to be used. Patient was not able to use NIV through trach due to cuff leak, tracheostomy replaced at bedside on 02/06. The patient was cleared for transfer to the floor. Interval History: 02/09/2024-No overnight issues. States she is feeling well - no SOB Case and plan discussed with patient and bedside nurse. All questions answered. Past Medical History: Past Medical History: Diagnosis Date Asthma CAD (coronary artery disease) Cerebral artery occlusion with cerebral infarction (HCC) COPD (chronic obstructive pulmonary disease) (HCC) Hypertension Adult diet Regular 24HR INTAKE/OUTPUT: No intake or output data in the 24 hours ending 02/09/24 1223 LABS: CBC: Recent Labs 02/07/24 0549 02/08/24 0457 02/09/24 0525 WBC 9.7 9.3 9.8 RBC 3.53* 3.29* 3.49* HGB 10.4 9.3* 8.7* 9.3* HCT 30.4* 28.3* 30.2* MCV 86.1 86.0 86.5 RDW 15.2* 15.4* 15.6* PLT 222 227 249 BMP: Recent Labs 02/07/24 0549 02/08/24 0457 02/09/24 0525 NA 138 138 137 K 3.3* 3.3* 3.6 CL 100 103 102 CO2 36* 31* 32* BUN 17 20* 13 CREATININE 0.55 0.64 0.58 GLUCOSE 83 92 89 CALCIUM 8.6 8.7 8.9 ANIONGAP 2* 3 3 LIVER PROFILE:No results for input(s): AST , ALT , BILITOT , ALKPHOS , PROT in the last 72 hours. No lab exists for component: LABALBU PT/INR: No results for input(s): PROTIME , INR in the last 72 hours. CARDIAC ENZYMES: No results for input(s): TROPONINI in the last 72 hours. Procalcitonin: No results found for: PROCAL COVID-19 PCR: No results for input(s): COVID19 in the last 72 hours. Objective: Vitals: BP 136/52 Pulse 89 Temp 36.7 C (98 F) (Temporal) Resp 18 Ht 5' 2.99 (1.6 m) Wt 129 lb (58.5 kg) SpO2 100% BMI 22.86 kg/m Pulse Ox: SpO2 Av.1 % Min: 95 % Max: 100 % Supplemental O2: O2 Flow Rate (L/min): 5 L/min Physical Exam HENT: Head: Comments: Trach intact Mouth/Throat: Mouth: Mucous membranes are moist. Cardiovascular: Rate and Rhythm: Normal rate and regular rhythm. Pulmonary: Effort: Pulmonary effort is normal. Breath sounds: Normal breath sounds. Abdominal: General: Abdomen is flat. Bowel sounds are normal. Palpations: Abdomen is soft. Skin: General: Skin is warm. Neurological: General: No focal deficit present. Mental Status: She is alert and oriented to person, place, and time. Medications: Scheduled PRN albuterol, 2.5 mg, Nebulization, TID DULoxetine, 30 mg, Oral, Daily enoxaparin, 40 mg, SubCUTAneous, Daily famotidine, 20 mg, Oral, BID melatonin, 3 mg, Oral, Nightly mometasone-formoterol, 2 puff, Inhalation, BID potassium chloride CR, 15 mEq, Oral, Daily [START ON 02/10/2024] predniSONE, 10 mg, Oral, Daily Followed by [START ON 02/12/2024] predniSONE, 5 mg, Oral, Daily sodium chloride 0.9%, 5-40 mL, IntraCATHeter, q8h tiotropium, 2 puff, Inhalation, Daily PRN medications: acetaminophen OR acetaminophen OR acetaminophen, alteplase (Cathflo Activase) 2 mg in sterile water 2 mL injection, guaiFENesin, hydrOXYzine pamoate, sodium chloride 0.9%, traZODone Continuous Assessment Data: (CAT1) Reviewed 3 or more labs/studies previously ordered by me not previously counted (each=1, panels count as 1). (LOW: 2x CAT1 or independent historian MOD: 3x CAT1 or 1x CAT3 EXTENSIVE: 3x CAT1 and 1x CAT3) Acute, acute on chronic, unstable/uncontrolled chronic problems/diagnoses: Acute on chronic hypoxic and hypercapnic respiratory failure s/p trach End stage COPD s/p trach Acute encephalopathy - resolved Stable chronic problems affecting care, new non-acute diagnoses: Anxiety / depression Anemia Hypokalemia Plan As a result of the above findings & factors, the following mgmt was pursued: - pt doing well on medical floor - cont pred taper - cont astral at night per pulm recs - pulm following on the floor - mentation seems to be back to baseline - awaiting approval for rehab - - am labs, replace lytes prn - PT/OT/CM/SW - delirium precautions: increase activity - DVT prophylaxis: enoxaparin and encourage ambulation Complexity: Acute illness with systemic symptoms (MOD). Risk: Prescription drug/IVF/colloid was initiated, discontinued, adjusted; or reviewed with decision to maintain current orders (MOD). Advance Directive: Full Code Anticipated Discharge - Date - 02/10 - Location - Acute Rehab - Pending the following - facility acceptance Total time spent (which include face to face and non face to face encounters) : 41 minutes Extended Emergency Contact Information Primary Emergency Contact: YOVANNYJAVAD (AMEENA GLEASON Mobile Relation: Daughter Secondary Emergency Contact: Gene Mills Mobile Relation: Son Preferred language: [place] [employer] Dispatcher needed? No Pepe Delarosa MD Division of Hospitalist Medicine Inpatient Medical Services/[place] [facility] Pulmonary and Sleep Medicine Patient - Luiza May, Age - 68 y.o. - 1955 Room Number - @[email or web address]@ Consulting - Pepe Delarosa MD Primary Care Physician - Mary[id number] Date of Admission - 01/28/2024 6:42 PM Hospital Day - 12 Subjective/Events Past 24 hours/ROS Hospital course: PMHx of COPD/seizures and trach. She presented to the ER on 01/28/24 for possible seizure. Her family called EMS when the pt had a shaking episode. A+Ox2 per EMS on arrival and pt was brought to the ER. This was around 1000. The ER assessed and sent her home. Later in the day around 1400, the pt had another episode of shaking and was brought back again. At [facility], she has had a negative CTA head. Negative CXR. No leukocytosis but L shift is present. INR of 1. Creat 0.93. No LA. She was noted to be hypercapneic, started on NIV. Family reports increasing delirium recently, suspicious that BiPAP is not being used consistently. Transitioned trach to vent on 01/28. Started on Vanc/Cefepime (course planned through 02/03) for HAP. Home machine brought in, identified as Astral 100 but unable to be used. Patient was not able to use NIV through trach due to cuff leak, tracheostomy replaced at bedside on 02/06. VBG has been compensated since wearing AutBIPAP here. Interval events: Patient resting comfortably in bed. BiPAP was at bedside this morning, but patient is unsure if it was used overnight. States that she feels well today. Denies shortness of breath. Has chronic dry cough, at baseline. Denies wheezing. Patient denies pain, fever, chills, nausea, vomiting, chest pain or pressure, heart palpitations, LE edema, diarrhea or constipation. Patient getting OOB with PT to walk. Observed PT session, SpO2 maintained >95% with ambulation on trach mask. All other systems reviewed Objective Vitals Vitals: BP 136/52 Pulse 89 Temp 36.7 C (98 F) (Temporal) Resp 18 Ht 5' 3 (1.6 m) Wt 129 lb (58.5 kg) SpO2 100% BMI 22.85 kg/m Pulse Ox: SpO2 Av.4 % Min: 95 % Max: 100 % Supplemental O2: O2 Flow Rate (L/min): 5 L/min I/O 24HR INTAKE/OUTPUT: No intake or output data in the 24 hours ending 02/09/24 1008 @[id number]@ Exam General Appearance Awake, alert, oriented, in no acute distress. SpO2 100% on trach mask 5 LPM, FiO2 28% HEENT - normocephalic, atraumatic, sclarea is anicteric, conjunctiva is pink, nasal mucosa is normal, no congestion, external ears are intact. Neck - Supple, trachea midline, full range of motion. Lungs Normal effort, lung sounds diminished bilaterally. No wheezes, crackles or rhonchi noted. Cardiovascular - Heart sounds are normal. Regular rate and rhythm, without murmurs, rubs or gallops Abdomen - Soft, nontender, nondistended, no masses or organomegaly Neurologic - Awake, alert, follows commands. Cranial nerves II-XII are intact, There are no focal motor deficits grossly Skin - No bruising or bleeding, normal turgor, no rashes or lesions Extremities - No clubbing, cyanosis, edema Psychiatric: appropriate, oriented to person, place and time/date Meds albuterol, 2.5 mg, Nebulization, TID DULoxetine, 30 mg, Oral, Daily enoxaparin, 40 mg, SubCUTAneous, Daily famotidine, 20 mg, Oral, BID melatonin, 3 mg, Oral, Nightly mometasone-formoterol, 2 puff, Inhalation, BID potassium chloride CR, 15 mEq, Oral, Daily [START ON 02/10/2024] predniSONE, 10 mg, Oral, Daily Followed by [START ON 02/12/2024] predniSONE, 5 mg, Oral, Daily sodium chloride 0.9%, 5-40 mL, IntraCATHeter, q8h tiotropium, 2 puff, Inhalation, Daily PRN medications: acetaminophen OR acetaminophen OR acetaminophen, alteplase (Cathflo Activase) 2 mg in sterile water 2 mL injection, guaiFENesin, hydrOXYzine pamoate, sodium chloride 0.9%, traZODone Labs CBC Recent Labs 02/09/24 0525 WBC 9.8 HGB 9.3* HCT 30.2* MCV 86.5 PLT 249 BMP: Recent Labs 02/09/24 0525 NA 137 K 3.6 CL 102 CO2 32* BUN 13 CREATININE 0.58 GLUCOSE 89 LIVER PROFILE No results for input(s): AST , ALT , LIPASE , AMYLASE , BILIDIR , BILITOT , ALKPHOS in the last 72 hours. No lab exists for component: LB INR No results found for: INR , PROTIME PTT No results found for: APTT PROCAL: No results found for: PROCAL ABG: No results for input(s): PH , PCO2 , PO2 , HCO3 , O2SAT in the last 72 hours. No components found for: IFIO2 , MODE , SETTIDVOL , SETPEEP Cultures 01/28/24 Sputum Cx: Lab Results Component Value Date RESPCULT Few respiratory ailyn present. 01/28/2024 RESPCULT Moderate Pseudomonas aeruginosa (A) Susceptibility Pseudomonas aeruginosa BROTH MICRODILUTION Cefepime <=1 ug/ml Susceptible Ciprofloxacin <=0.25 ug/ml Susceptible Gentamicin <=1 ug/ml Susceptible Meropenem <=0.25 ug/ml Susceptible Piperacillin / Tazobactam 8 ug/ml Susceptible 01/28/24 Blood culture #2: no growth at 5 days 01/28/24 Blood culture #1: no growth at 5 days 01/28/24 Pneumonia PCR panel: + for pseudomonas, Moraxella, Staph Aureus, mecA Radiology CXR 02/07/24: No acute cardiopulmonary disease. CTA chest 09/27/2023: Minimal bilateral pleural effusions and adjacent slight infiltrate or atelectasis. Reviewed (See actual reports for details) Active Hospital Problem List @[id number]@ Assessment and Plan Acute on chronic hypoxic and hypercapnic respiratory failure- 2/2 polymicrobial LRTI and AECOPD. Sating well on trach mask, no hypoxia with ambulation. - Continue trach mask on current settings. - Continue Nocturnal BiPAP- tolerates with trach, does not tolerate face mask. Daily VBG ordered. Seizure-like activity?: family notes these episodes when she is not wearing her BIPAP. Most likely shaking 2/2 hypercarbia. On Keppra. COPD exacerbation- symptoms improved, feels back to baseline. Hx of severe COPD. - Continue Dulera, Spiriva, Albuterol nebs PRN - Continue prednisone taper, currently on 20 mg daily. - Would benefit from outpatient PFT's Hx of prior stroke: bi hemispheric MCA strokes, atrophy and encephalomalacia. Also hx of traumatic SDH. hx of cognitive decline at home, may have component of dementia. Hypercarbia likely contributes to encephalopathy. Geriatrics following. Hx of ETOH abuse Dispo- Pulmonary will continue to follow. Please call with questions. Follow-up appointment scheduled for 02/21/24 at 10:10 am. DVT prophylaxis: [] Lovenox [] Heparin [] SCDs [x] Encourage ambulation [] Already on Anticoagulation Advance Directive: Full Code Discharge planning: TBD 35 minutes personally spent assessing and managing the patient on 02/09/2024 Case discussed with nurse and patient/family. Questions and concerns addressed. [facility] Geriatric Medicine Inpatient Consult Service Admission Date: 01/28/2024 Assessment Principal Problem: Status epilepticus (CMS/HCC) (HCC) Plan Cognitive deficits --Deficits on initial testing ( on MMSE). --+ history of cognitive decline at home. + history of decline in ADL's and IADL's --TSH WNL, B12 WNL --Head imaging - multifocal encephalomalacia right occipital and left parietal lobase, right prece precentral gyrus right thalamus, and bilateral cerebellar hemispheres that are unchanged. Mild generalized brain parenchymal volume loss --History concerning for baseline dementia-multiple risk factors including history of brain injury, multiple areas of strokes on head imaging, history of EtOH --Anxiety and depression can be contributing to her symptoms --Recommend outpatient follow up at [facility] ([facility]) for more in depth cognitive evaluation when in usual state of health. Added to discharge information and discussed with patient. Acute Metabolic Encephalopathy --Resolved, no reported confusion per RN --Etiology likely related to hypercarbia, infection, ICU and hospitalization, potentially worsened by history of anxiety/depression --Encourage PO intake, time up in chair, family visits, supervised ambulation, and sleep hygiene --If agitated, assess for and consider treating for pain --QTc= 447 --No antipsychotic unless patient is danger to self/others/treatment --Continue scheduled melatonin at HS, consider increasing to 6 mg nightly --Monitor for constipation/urinary retention - last BM 02/08 --Possible medication contributions: prednisone, vistaril - [place] documents routine rx for zolpidem 10 mg, last dispensed 01/27 #30, 30-day supply. Has not received since admission, did get a few doses of benzodiazepine but none over the past several days. Evaluate for need to resume, potentially at lower dose in order to prevent signs or symptoms of withdrawal. Recommend to continue to monitor off, would not resume on discharge. Declining functional status --Related to acute on chronic illness --Continue PT/OT as able while inpatient --Anticipate d/c to inpatient rehab for ongoing daily PT/OT, patient agreeable to plan in conversation this afternoon Depression/Anxiety -Continue home prescribed duloxetine, may need further treatment/optimization as outpatient -Avoid benzodiazapine -Avoid vistaril if possible Insomnia - Takes Ambien regularly. Has not received Ambien since admission, did get a few doses of benzodiazepine but none over the past several days. Evaluate for need to resume, potentially at lower dose in order to prevent signs or symptoms of withdrawal. Recommend to continue to monitor off, would not resume on discharge. - Continue BiPAP - Continue melatonin nightly and trazodone PRN nightly Follow-up: prn, please page with any questions/issues Subjective Chief Complaint: Patient presents with Seizures Pt sent from [facility] for evaluation of seizures. Per transport, pt had 2-3 seizures prior to arriving at OSH & was given a total of 1 mg of ativan and got loaded with keppra. Per EMS, pt has also been having trouble with hypoxia and was 85% on her home 3L. Pt arrives 99% on 6L. Pt does have a capped trach. AAOx2 upon triage, which per squad was baseline at OSH Geriatrics consulted for concern for dementia HPI- The patient is new to me but seen by the Geriatric Inpatient Consult team. 68 y.o. year-old female admitted to acute care from home for shaking episode and concern for possible seizure. Patient was at home and had a shaking episode. Per report she was ANO x 2 on arrival to the ED. She was assessed and discharged home. Later in the day she had another episode and was brought back in. Initial head CT negative for acute findings, chest x-ray negative. Family reported that she been more delirious lately, not adherent with her BiPAP. Concern for tracheobronchitis versus pneumonia versus related to BiPAP noncompliance, treated with steroids and antibiotics. She does have a chronic trach from previous hospitalization. She was admitted inFebruary for subdural hematoma following an unwitnessed fall. Admitted here 09/25 - 10/11 for seizures that required intubation, failed extubation and underwent trach and PEG on 10/04/2023 subsequently admitted 10/11 to [facility] in [place]. Per initial geriatric consult note, patient reports concerns for dementia and worsening memory over the past 6-8 months. Requires assistance for bathing and dressing. Able to complete light housework. Reports she is not able to safely drive due to her vision. Daughter reported memory loss concerns over the past 6 years. Interval History: Transferred to general medical/surgical floor . No documented overnight events. Labs reviewed with Sodium 137, BUN 13, Creatinine 0.58, WBC 9.8, hemoglobin 9.3. Received hydroxyzine 25 mg once at 02:42 and trazodone 25 mg overnight. Did not tolerate home machine overnight, preferred to sleep with trach mask and speaking valve in place overnight. Patient ambulating in room with PT. Reports she did not sleep well overnight. Denies pain and ate breakfast this morning. Reports some lightheadedness and dizziness with ambulation with PT. Alert to person, place, month, and year. Reports her mood as up and down. Feels anxious at times. Agreeable to outpatient evaluation for memory testing due to reported memory concerns and mood. Agreeable to rehab on discharge. No family at bedside. Spoke to RN. No overnight events. Worked with PT and ambulated down the hallway. Seen by PT. Contact guard assist. Ambulated 20 ft,125 ft, 350 ft. Recommending inpatient rehab. Review of Systems Constitutional: Positive for activity change. Negative for fatigue. HENT: Negative for sore throat and trouble swallowing. Respiratory: Negative for cough and shortness of breath. Gastrointestinal: Negative for abdominal pain, nausea and vomiting. Genitourinary: Negative for difficulty urinating. Musculoskeletal: Negative for gait problem and myalgias. Neurological: Positive for dizziness and light-headedness. Negative for headaches. Psychiatric/Behavioral: Positive for sleep disturbance. Negative for confusion. The patient is nervous/anxious. Objective BP 136/52 Pulse 104 Temp 36.7 C (98 F) (Temporal) Resp 18 Ht 5' 2.99 (1.6 m) Wt 129 lb (58.5 kg) SpO2 98% BMI 22.86 kg/m No intake or output data in the 24 hours ending 02/09/24 1415 Wt Readings from Last 3 Encounters: 02/07/24 129 lb (58.5 kg) 10/10/23 156 lb 8.4 oz (71 kg) 07/26/22 121 lb 9.6 oz (55.2 kg) Current Facility-Administered Medications: acetaminophen (Tylenol) tablet 650 mg, 650 mg, Oral, q4h PRN, 650 mg at 02/07/24 1603 OR Acetaminophen (Tylenol) 650 MG/20.3ML solution 650 mg, 650 mg, Oral, q4h PRN OR acetaminophen (Tylenol) suppository 650 mg, 650 mg, Rectal, q4h PRN, Adriano Marr DO albuterol (2.5 MG/3ML) 0.083% nebulizer solution 2.5 mg, 2.5 mg, Nebulization, TID, Mildred Villafuerte DO, 2.5 mg at 02/09/24 1253 alteplase (Cathflo Activase) 2 mg in sterile water 2 mL injection, 2 mg, IntraCATHeter, PRN, Yanet Aguilar MD, 2 mg at 02/08/24 0513 DULoxetine (Cymbalta) DR capsule 30 mg, 30 mg, Oral, Daily, Estela Hurst DO, 30 mg at 02/09/24 0836 enoxaparin (Lovenox) syringe 40 mg, 40 mg, SubCUTAneous, Daily, Alayna Gaxiola MD, 40 mg at 02/09/24 0836 famotidine (Pepcid) tablet 20 mg, 20 mg, Oral, BID, Mildred Villafuerte DO, 20 mg at 02/09/24 0836 guaiFENesin (Robitussin) 100 MG/5ML liquid 200 mg, 200 mg, Oral, q4h PRN, Yanet Aguilar MD, 200 mg at 02/07/242022 hydrOXYzine pamoate (Vistaril) capsule 25 mg, 25 mg, Oral, q8h PRN, Estela Hurst DO, 25 mg at 02/08/242008 melatonin tablet 3 mg, 3 mg, Oral, Nightly, Adriano Marr DO, 3 mg at 02/08/242003 mometasone-formoterol (Dulera 200) 200-5 MCG/ACT inhaler 2 puff, 2 puff, Inhalation, BID, Mildred Villafuerte DO, 2 puff at 02/09/24 08 potassium chloride CR (Klor-Con M10) ER tablet 15 mEq, 15 mEq, Oral, Daily, Estela Hurst DO, 15 mEq at 02/09/24 1324 [COMPLETED] predniSONE (Deltasone) tablet 40 mg, 40 mg, Oral, Daily, 40 mg at 02/05/24 0921 FOLLOWED BY [COMPLETED] predniSONE (Deltasone) tablet 30 mg, 30 mg, Oral, Daily, 30 mg at 02/07/24 0811 FOLLOWED BY [COMPLETED] predniSONE (Deltasone) tablet 20 mg, 20 mg, Oral, Daily, 20 mg at 02/09/24 0836 FOLLOWED BY [START ON 02/10/2024] predniSONE (Deltasone) tablet 10 mg, 10 mg, Oral, Daily FOLLOWED BY [START ON 02/12/2024] predniSONE (Deltasone) tablet 5 mg, 5 mg, Oral, Daily, Mildred Villafuerte DO sodium chloride 0.9% (NS) flush 5-40 mL, 5-40 mL, IntraCATHeter, q8h, Noreen Castro MD, 10 mL at 02/09/24 0830 sodium chloride 0.9% (NS) flush 5-40 mL, 5-40 mL, IntraVENous, PRN, Noreen Castro MD tiotropium (Spiriva Respimat) 2.5 MCG/ACT inhaler 2 puff, 2 puff, Inhalation, Daily, Mildred Villafuerte DO, 2 puff at 02/09/24 0835 traZODone (Desyrel) tablet 50 mg, 50 mg, Oral, Nightly PRN, Estela Hurst DO, 50 mg at 02/08/242008 Physical Exam Constitutional: No acute distress, well-nourished, well kempt Psych: Mood and affect Appropriate. Good eye contact. Cardiovascular: Regular rate and rhythm, no murmur, no BLE edema Pulmonary/Chest: Clear to auscultation bilaterally, normal respiratory effort, no coughing noted, tracheostomy with trach mask in place Abdominal: Soft, not distended, no tenderness to palpation, BS present, Neurological: alert, attentive, speech is clear and appropriate , oriented x month, year, place, city, and self, follows commands, no tremor Musculoskeletal: Muscle strength 5/5 RLE, 5/5 LLE. Gait: slow, steady with rolling walker with PT assist Skin: warm and dry, no visible rashes or wounds Labs and Imaging: Recent Results (from the past 24 hour(s)) Basic metabolic panel Collection Time: 02/09/24 5:25 AM Result Value Ref Range SODIUM 137 135 - 145 mmol/L POTASSIUM 3.6 3.5 - 5.1 mmol/L CHLORIDE 102 98 - 107 mmol/L CARBON DIOXIDE 32 (H) 22 - 30 mmol/L UREA NITROGEN 13 7 - 17 mg/dL CREATININE 0.58 0.52 - 1.04 mg/dL GLUCOSE 89 70 - 100 mg/dL CALCIUM 8.9 8.4 - 10.4 mg/dL ANION GAP 3 3 - 13 mmol/L eGFR >90.0 >60.0 mL/min/1.73m*2 CBC auto differential Collection Time: 02/09/24 5:25 AM Result Value Ref Range Auto WBC 9.8 3.6 - 10.7 10*3/uL RBC 3.49 (L) 3.80 - 5.20 10*6/uL Hemoglobin 9.3 (L) 11.7 - 16.0 g/dL Hematocrit 30.2 (L) 35.0 - 47.0 % MCV 86.5 77.0 - 99.0 fL MCH 26.6 26.0 - 34.0 pg MCHC 30.8 30.5 - 36.0 % RDW 15.6 (H) 11.5 - 15.0 % Platelets 249 140 - 440 10*3/uL MPV 10.2 9.0 - 12.7 fL nRBC 0.0 0.0 - 2.0 /100 WBCs Neutrophils Relative 62.8 38.0 - 82.0 % Lymphocytes Relative 25.5 15.0 - 45.0 % Monocytes Relative 9.2 5.0 - 13.0 % Eosinophils Relative 0.9 0.0 - 6.0 % Basophils Relative 0.2 0.0 - 2.0 % Immature Grans % 1.4 0.0 - 2.0 % Neutrophils Absolute 6.2 1.8 - 7.5 10*3/uL Lymphocytes Absolute 2.5 1.0 - 4.3 10*3/uL Monocytes Absolute 0.9 0.0 - 0.9 10*3/uL Eosinophils Absolute 0.1 0.0 - 0.5 10*3/uL Basophils Absolute 0.0 0.0 - 0.2 10*3/uL Immature Grans Absolute 0.1 (H) <0.1 10*3/uL Lab Results Component Value Date TSH 1.148 01/29/2024 Lab Results Component Value Date [id number] 416 01/29/2024 Lab Results Component Value Date VITD25 32 01/29/2024 Reviewed: allergies, imaging, active problem lists, medications, and labs [facility] Respiratory Care Department Progress Note Trach Mask Trial Start START TIME: 0124 HR: 92 RR: 18 Fio2: 28 SpO2: 99 CUFF: Deflated Comments: Patient not tolerating her home machine. She admitted that she is non-compliant at home with her vent. States it is uncomfortable. Patient would prefer to sleep with trach mask & speaking valve in place. Thank you for involving Respiratory in the care of this patient, [facility] Respiratory Care Department Progress Note Trach Mask Trial End END TIME: 0 Total time on trial: 16 hrs HR: 91 RR: 22 Fio2: 28 SpO2: 100 CUFF REINFLATED: Yes Reason for return to ventilator: Patient to wear NIV at [facility], trial with her home vent (ex. Physician ordered, Vitals, SOB, patient request) COMMENTS: Patient willing to wear home machine, unclear if wears at home. Thank you for involving Respiratory in the care of this patient, Images from the original note were not included. PHYSICAL THERAPY [facility] Name/MRN: Luiza May ([id number]) Date: 02/08/2024 Chart review completed this date. PT attempted in 1C. Pt recently transferred to . PT will continue to follow. Will re-attempt another time/date as schedule permits. Tiffany Brewster PTA ICU Progress Note Name: Luiza May : 1955(68 y.o.) Date: 02/08/24 Team: MICU Attending: Dr. Alayna Gaxiola Subjective: Hospital Summary: 68 y/o F with PMH advanced COPD s/p trach from recent admission to [facility], presented 01/27 to [facility] with possible seizure. Her family called EMS when the pt had a shaking episode. A+Ox2 per EMS on arrival and pt was brought to the ER. The ER assessed and sent her home. Later in the day around 1400, the pt had another episode of shaking and was brought back again. At [facility] ED, she had a negative CTA/H and CXR. Unknown seizure history, most recent outpt notes do not have her on AEDs any longer. Family is concerned for increased delirium, primarily when she is non-compliant with her BiPAP. Patient has not been compliant with BiPAP overnight. Home machine brought in, identified as Astral 100 but unable to be used. Patient was not able to use NIV through trach due to cuff leak, tracheostomy replaced at bedside on 02/06. The patient was cleared for transfer to the floor. Interval Events: Patient was placed on mask NIV overnight but only wore this for 2 hours. Discussed with RT that the patient needs to be placed on NIV through trach as she does not tolerate the mask. Scheduled Meds:albuterol, 2.5 mg, Nebulization, TID DULoxetine, 30 mg, Oral, Daily enoxaparin, 40 mg, SubCUTAneous, Daily famotidine, 20 mg, Oral, BID melatonin, 3 mg, Oral, Nightly mometasone-formoterol, 2 puff, Inhalation, BID potassium chloride CR, 10 mEq, Oral, Daily predniSONE, 20 mg, Oral, Daily Followed by [START ON 02/10/2024] predniSONE, 10 mg, Oral, Daily Followed by [START ON 02/12/2024] predniSONE, 5 mg, Oral, Daily sodium chloride 0.9%, 5-40 mL, IntraCATHeter, q8h tiotropium, 2 puff, Inhalation, Daily Continuous Infusions: Objective: Last Vitals: BP MAP (!) 118/49 (02/08/24 0400) 69 (02/08/24 0400) Arterial BP MAP Temp (!) 35.9 C (96.7 F) (02/08/24 0006) Pulse 88 (02/08/240) Resp (!) 30 (02/08/24 040) SpO2 98 % (02/08/24399) Weight 58.5 kg (129 lb) (02/07/24599) BMI Body mass index is 22.85 kg/m . I/O: 02/06 700 - 02/07 659 In: 240 [P.O.:240] Out: 550 [Urine:550] Ventilator: Resp Rate (Set): 15 Vt (Set, mL): 400 mL FiO2 (%): 30 % PEEP/CPAP (cm H2O): 5 cm H20 Inspiratory Time (sec): 1.2 sec Oxygen Delivery: O2 Flow Rate (L/min): 5 L/min Invasive Lines / Tubes / Drains: CVC Triple Lumen 01/29/24 Non-tunneled Right Internal jugular (Active) Number of days: 9 External Urinary Catheter (Active) Number of days: 4 Surgical Airway Shiley Cuffed 6 (Active) Number of days: 0 Central Line Indication: Inadequate peripheral access despite documented ultrasound attempts AND unable to place extended dwell PIV Soliman Indications: NA - patient does not have a Soliman catheter Restraints: Restraints Non-Violent Or Non-Self Destructive Jan 29, 2024 10:49 Pm Edt NA - patient is not restrained. Wounds: Constitutional: General Appearance [x]WDWN []Obese []Cachectic []Thin []Ill Eyes: Inspection of Pupils/Irises Pupils round and react: [x]Yes []No Sclera: []Icteric [x]Non-Icteric Inspection of Conjunctiva/Lids Conjunctiva: []Injected [x]Non-Injected Lids: [x]Intact []Lesion Present ENT/Mouth: External Inspection of ears/nose [x] Normal [] Scar/Lesion/Mass Inspection of teeth/lips/gums Dentition: [][place] Teeth []Dentures Lips/Gums: [x]Intact []Lesion Present Mucosa: [x][place] [x]Moist []Dry Neck: External Appearance Overall Appearance: [x]Normal []Lesion/Mass/Crepitus Present Trachea midline: [x]Yes []No Thyroid [x]Normal []Enlarged []Tender []Mass []Absent Respiratory: Respiratory effort []Labored [x]Non-Labored [] Mechanically-Ventilated Auscultation [x]Clear- diminished throughout []Crackles []Wheezes []Rhonchi Cardiovascular: Auscultation Rate: []Regular []Irregular [x]Tachycardia []Bradycardia Rhythm: [x]Regular []Irregular Murmur: []Present [x]Absent Extremities Peripheral Edema: []Present [x]Absent Varicosities: []Present [x]Absent Gastrointestinal: Abdomen Palpation: [x]Soft []Firm []Tender []Non-Tender []Distended [x]Non-distended Mass: []Present [x]Absent Bowel Sounds: []Present []Absent Hernia: []Present [x]Absent Liver/Spleen: []Hepatosplenomegaly [x]Organomegaly Absent Musculoskeletal: Inspection of Digits and Nails Cyanosis: []Present [x]Absent Clubbing: []Present [x]Absent Ischemia: []Present [x]Absent Infection: []Present [x]Absent Extremities REGALADO Equally: Except ([]RUE []RLE []LUE []LLE) Strength/Tone: Intact and Normal ([]RUE []RLE []LUE []LLE) Skin: Inspection [x]Normal []Rash []Lesion []Ulcer Palpation [x]Warm []Cool [x]Dry []Clammy []Nodules []Induration []Skin-tightening Cap-Refill: [] <3 sec [] >3 seconds (delayed) Neurologic: GCS EYE: 4 - Opens spontaneously GCS MOTOR: 6 - Obeys commands for movement GCS VERBAL: 5 - Oriented to person, place, time Total GCS: 15 [] Sensation grossly intact Psych: Mental Status Alert: [x]Yes [] No Oriented: []x0 []X1 []X2 [x]x3 Mood/Affect [x]Normal []Flat []Agitated []Depressed []Anxious []Calm []Sedated []NAD [facility] within last 24 hours- BMP: Recent Labs 02/06/24 0558 02/07/24 0549 02/08/24 0457 NA 138 138 138 K 3.1* 3.3* 3.3* CL 98 100 103 CO2 39* 36* 31* BUN 21* 17 20* CREATININE 0.58 0.55 0.64 CALCIUM 9.0 8.6 8.7 LFTs:No results for input(s): AST , ALT , PROT , ALBUMIN , BILITOT , BILIRUBINU , ALKPHOS , LIPASE in the last 72 hours. Glucose: Recent Labs 02/06/24 0558 02/07/24 0549 02/08/24 045 GLUCOSE 90 83 92 Procal: No results for input(s): PROCAL in the last 72 hours. CBC: Recent Labs 02/06/24 0558 02/07/24 0549 02/08/24456 WBC 11.0* 9.7 9.3 HGB 11.3 10.1* 10.4 9.3* 8.7* HCT 32.5* 30.4* 28.3* PLT 225 222 227 MCV 85.1 86.1 86.0 RDW 14.9 15.2* 15.4* ABGs: Recent Labs 02/07/24 0549 [id number] 30% Oxygen Lactic Acid: No results for input(s): LACTATE in the last 72 hours. INR: No results for input(s): INR in the last 72 hours. Cardiac Injury Profile: No results for input(s): CKTOTAL , CKMB , TROPONINI in the last 72 hours. Labs in Last 3 months: Lab Results Component Value Date TSH 1.148 01/29/2024 VITD25 32 01/29/2024 Microbiology- Urine Cx: Lab Results Component Value Date URINECX 07/29/2022 Insignificant growth based on current clinical guidelines Blood Cx: Lab Results Component Value Date BLOODCX No growth at 5 days 01/28/2024 Sputum Cx: Lab Results Component Value Date RESPCULT Few respiratory ailyn present. 01/28/2024 RESPCULT Moderate Pseudomonas aeruginosa (A) 01/28/2024 Gram Stain: Lab Results Component Value Date LABGRAM (A) 01/28/2024 Moderate Polymorphonuclear leukocytes per low power field LABGRAM Few Epithelial cells per low power field (A) 01/28/2024 LABGRAM Few Gram positive cocci (A) 01/28/2024 LABGRAM Few Gram positive bacilli (A) 01/28/2024 LABGRAM Few Gram negative bacilli (A) 01/28/2024 PNA PCR: Lab Results Component Value Date HUMANMETAPNE Not Detected 01/28/2024 COVID19: No results found for: COVID19 Legionella Ag: Lab Results Component Value Date LEGIONELLAPN Not Detected 01/28/2024 Strep Ag: No results for input(s): STREPPNEUMO in the last 72 hours. Imaging- normal Assessment and Plan: Principal Problem: Status epilepticus (CMS/HCC) ([facility]) Assessment and Plan: Acute on chronic hypoxic and hyperbapnic respiratory failure End stage COPD S/p tracheostomy - Most likely 2/2 polymicrobial LRTI and AECOPD - Home machine Astral 100 - VBG remains compensated even off PAP therapy - Patient has been non-compliant with nightly PAP therapy - High risk for decompensation - Chronic CO2 retention at baseline - Continue albuterol nebulizer TID, Dulera BID, Spiriva daily, Tessalon 100 mg TID PRN - Continue steroid taper - Trach successfully replaced at bedside, Enedina 7.5 cuffed - Patient will be placed on Astral via trach nightly for better compliance Agitation, acute encephalopathy- resolved Prior stroke, prior traumatic SDH Anxiety/Depression Concern for possible seizure (most likely myoclonic jerking from elevated CO2) Concern for cognitive impairment - Continue Cymbalta 30 mg daily, Vistaril 25 mg Q8H PRN, Trazadone 50 mg nightly PRN - Palliative care following - Patient would like to remain full code - Geriatrics following -PT/OT - Tachycardia with minimal exertion - Recommend IPR/continue to assess - Referral placed to [facility] Normocytic anemia - Remains stable, Hgb 8.7 Hypokalemia - Potassium chloride ER tablet 15 mEq daily - Replace as needed Previous EtOH abuse GI Prophylaxis: Pepcid PO/Enteral Tube DVT Prophylaxis: Lovenox 40 q 24hr - creatinine clearance >30 Disposition: Transfer to [facility] Critical Care Time: Total critical care time caring for this patient with life threatening, unstable organ failure, including direct patient contact, management of life support systems, review of data including imaging and labs, discussions with other team members and physicians, excluding procedures. Associated attestation - Alayna Gaxiola MD - 02/08/2024 7:00 PM EDT I have personally performed a [id number] diagnostic evaluation on this patient on date of service 02/08/24. History, labs, imaging studies, and electronic medical record have been reviewed by me. This note documented by the [x]warehouse general laborer []BACILIO reflects my history, exam, and medical decision making. I have reviewed and agree with the care plan. Changes were made in the orders as necessary. ROS documentation was reviewed and negative unless otherwise stated in HPI. Additional pertinent interval history, ROS, and physical exam findings: Remains alert and conversant. Wore astral for a couple hours overnight via trach. Minimal air movement. - attempt astral via trach for pt tolerance - will need TLC removed as able. Difficult IV access - pulm to follow on the floor. Images from the original note were not included. Palliative Care Progress Note Chief Complaint: Luiza May is a 68 y.o. female with chief complaint of seizures. Palliative Care is signing off, please re-consult if needed. (add SIGNOFFTRANSITION dotphrase below) Assessment/Plan Goals of Care - Code status: Full code - NOK/HCPOA: Legal NOK are children. Daughter reports HCPOA completed naming her (Ameena). - Own decision maker: patient now involved in decision-making - GOC conversation: Goals are focused on living longer. -Patient will need pulmonology follow-up/establishment -Patient agreeable for tracheostomy to remain in place until she can show compliance over time, established with pulmonology, and best set herself up for decannulation Acute on Chronic Respiratory Failure - Concern for tracheobronchitis vs pneumonia vs hypercarbia 2/2 BiPAP noncompliance - steroids per primary -Now on trach mask, attempting NIV to trach at night - management per primary Seizures Hx CVA/SDH - per documentation, patient no longer on AED at home Altered mentation - improved - likely 2/2 hypercarbia -A&O x 4 at baseline Palliative Care Encounter -Consulted for goals of care - counseled patient regarding diagnoses of Respiratory Failure, Determining prognosis in serious illness of Respiratory Failure - will continue treatment including n/a -Luiza May has been seen in consultation by [facility] during their admission to [facility]. They currently have no uncontrolled symptoms and have established goals of care and we have signed off of their case. The patient has established follow-up with electric bath attendant and PCP. Total of 35 minutes spent on this encounter including Chart review, Patient visit and exam, Documentation in EHR, Care coordination, Communicating with primary attending or other consultants, and Counseling and educating patient/family/caregiver. Discharge planning: Ready for discharge from Palliative Care perspective, no follow-up needed Patient meets criteria for general inpatient hospice care including the following: N/A - Palliative Care Patient Referrals to: None Discussed patient and the plan of care with the other interdisciplinary team (IDT) members of Palliative Care Team, and with Primary Attending, Patient, and Floor Nurse I have discussed the patient's case and plan of care with my collaborating physician Dr Trent Subjective: Subjective/Events - No significant events overnight - NAD on exam - Patient with no complaints today. Denied pain, nausea, vomiting, diarrhea, constipation, SOB. GOC conversation: Discussed with patient - patient wishes to remain a full code. She would not want family to keep her alive on machines if she was not going to have a reasonable recovery that would be what she considers quality of life HPI: Luiza May is a 68 y.o. female with PMH chronic respiratory failure, Hx CVA, tracheostomy since 07/2022 (planning to decannulate soon?), HFpEF, takotsubo cardiomyopathy, HTN, fall last year with SDH requiring R crani/evacuation, anxiety, ETOH abuse, seizures who presented to [facility] 01/28/2024 from home with concerns of hypoxia and had 2-3 seizures >5 minutes which prompted transfer to [facility]. Patient with trach (possible planning to decannulate from [facility] prior to this admission). Hypoxia improved once placed on NC (did not improve with trach mask). Work-up with respiratory acidosis. Patient admitted to ICU for status epilepticus and further work-up for respiratory failure. Daughter reports non-compliance with BiPAP mask. Ongoing hypoxia requiring trach to vent, tolerated SBT, SIMV orders placed 01/29. Patient continues to require precedex for agitation. Palliative care consulted for goals of care. Goals of care:Live Longer Functional Assessment: PPS: 60% Advance Directives: Full Code Surrogate: Child Prognosis: depends upon goals and unknown Spiritual assessment: No spiritual distress identified, payroll services analyst following Bereavement and grief: Grief Issues Not Identified Canones Symptom Assessment Score Canones Score Pain Score 0 Tiredness Score 0 Nausea Score 0 Depression Score 0 Anxiety Score 0 Drowsiness Score 0 Anorexia Score (0= eating well, 10= not eating) 0 Wellbeing Score (10= worst sense of well-being) 3 Constipation 0 Dyspnea Score (0= no shortness of breath) 0 FLACC Scale (For Pain Assessment of the Non-Verbal Patient) Face: 0- no particular expression Legs: 0- normal position or relaxed Activity: 0-lying quietly, moves easily Cry: 0-no cry Consolability:0-content, relaxed Total Score: 0 Assessed by: patient and provider. Family Meeting: (if discussing Advanced Care Planning, include .ACPDOCUMENTATION) Participants: patient Family meeting was held to discuss:Goals of Care, Advanced Care Planning, and Prior Expressed Wishes Advance Care Planning Advanced Care Planning Conversation Pertinent Diagnosis/es: Hypercapnic respiratory failure The patient and/or surrogate consented to a voluntary Advance Care Planning conversation. Luiza May retains capacity for medical decision-making Individuals present included: Patient. Summary of the conversation: Remain full code, continue aggressive measures, live longer Outcome of the conversation: Decision to remain full code and continue all aggressive care Advance Directives were not explained. Conversation focused on goals, values and medical decision-making. This represents a subsequent discussion around advanced care planning. It is appropriate for a repeat discussion of ACP because patient's still thinking of wishes at last visit. I spent 10 minutes providing separately identifiable ACP services with the patient and/or surrogate decision maker in a voluntary conversation discussing the patient's goals, values, and preferences as detailed in the note above. GALO Castrejon *Time-based code 46818 for 16-45 minutes. Add-on code 54046 at 46 minutes and each additional 30 minutes. If does not meet time threshold, may code 1123F (code status/ACP and surrogate documented) or 1124F (ACP discussed and documented, but patient unable to decide ACP nor identify surrogate decision maker) Objective: Physical Exam BP 92/76 Pulse (!) 121 Temp 36.6 C (97.8 F) (Temporal) Resp 18 Ht 5' 3 (1.6 m) Wt 129 lb (58.5 kg) SpO2 93% BMI 22.85 kg/m Physical Exam Vitals and nursing note reviewed. Constitutional: General: She is not in acute distress. Appearance: She is not ill-appearing. HENT: Head: Normocephalic and atraumatic. Nose: No rhinorrhea. Eyes: General: Right eye: No discharge. Left eye: No discharge. Extraocular Movements: Extraocular movements intact. Neck: Comments: Trach mask to trach Cardiovascular: Rate and Rhythm: Normal rate and regular rhythm. Pulmonary: Effort: No respiratory distress. Skin: Coloration: Skin is not jaundiced. Neurological: Mental Status: She is alert. Psychiatric: Mood and Affect: Mood is not anxious or depressed. Speech: Speech normal. Behavior: Behavior is not agitated or aggressive. Behavior is cooperative. Cognition and Memory: Cognition is not impaired. Current Medications: Inpatient medications reviewed: yes Home medications reviewed: yes OARRS Reviewed: Yes-gabapentin 1 time prescription 09/2023, long-term use ambien 24 Hour PRN Meds: MAR reviewed Results/Verification of Data Review Objective data reviewed (be specific which labs, imaging reports with dates reviewed): - Vitals and MAR 02/07/24 - Labs 02/07/24 - ICU progress note 02/07/24 Data in Support of Terminal Illness: Is patient hospice appropriate? TBD, does not align with goals Family Communication Number Called: [phone] Name of Designated Family Disbursing Agent: Ameena Castano Relationship: daughter Phone Call Outcome: I spoke with the individual listed above. Family Disbursing Agent Updated on the Following: Discussed that the patients tracheostomy was replaced at bedside today and that she tolerated this well. She was informed that the patient is doing well and no longer requires ICU level care and will be transferred to the general medical floor. Images from the original note were not included. PHYSICAL THERAPY [facility] Treatment Note Name/MRN: Luiza May ([id number]) Date of : 1955 Age: 68 y.o. Room/Bed: T1-114/T1-114 A Discharge Recommendation: IP Rehab Prior Level of Function ADL Assistance: Independent Ambulation Assistance: Independent Transfer Assistance: Independent Assessment Pt presents with the listed deficits and decreased functional mobility. Transfers demo'd CGA. Ambulation demo'd with use of FWW at CGA and no device at Staci. Pt limited by fatigue, weakness, decreased balance and decreased endurance as well as SOBOE. Increased time required to complete tasks. Assist with lines and tubes required throughout. PT goals progressing. Pt would benefit from continued skilled PT. Would tolerate 3 hours of therapy a day. Recommend IP Rehab at discharge. Subjective Pt sitting up in chair. Agreeable to therapy. Requesting to walk the halls. RN cleared for PT. Pain: Pt denies any current pain. Medical Precautions: No active isolations Proper PPE donned/doffed in accordance with facility standards. Fall Risk: Garcia Fall Risk Score: 60 (High Risk) Precautions/Restrictions: Seizure Precautions Lines/Drains/Airways: trach to trach mask, PIV, 15L HF Overall Cognitive Status: WFL Overall Orientation Status: Oriented x4 Family/Caregiver Present: none Objective Transfers/Mobility Sit to stand: Contact Guard Stand to sit: SBA Toilet: Contact Guard X 2 from recliner, x 1 from toilet. Good anterior wt shift and use of momentum. Demo'd proper hand and foot placement. Cues to reach for safety awareness and maintain eccentric control when returning to seated surface. Cues for upright posture. No overt LOB. Slight unsteadiness with SOB and fatigue onset. No instability noted. Denies dizziness. Use of grab bar for STS form toilet. Device(s) used: Front wheeled walker Ambulation Ambulation 1 Assistive device(s) used: Front wheeled walker Assist level: Contact Guard Distance (ft): 355ft Quality of gait: No LOB, reciprocal stepping, B foot clearance, shuffling, uneven step length, narrow JAMIE, slow matt, postural sway, path deviations Good FWW management and safety. Pt able to maintain JAMIE within FWW. Able to maintain close proximity to FWW. Cues for continuous reciprocal gait with increased step height and length to normalize gait pattern. Good carryover noted. Good management and safety when turning with use of FWW. Cues for upright posture with good carryover. Standing rest breaks ~ 75 ft x 3. Seated rest break following ambulation. Denies dizziness and increase in pain. No overt LOB. No instability/unsteadiness. Ambulation 2 Assistive device(s) used: None Assist level: Min Assist Distance (ft): 25ft, 15 ft Quality of gait: No LOB, reciprocal stepping, B foot clearance, shuffling, uneven step length, narrow JAMIE, slow matt, postural sway, forward flexed posture and use of furniture for increased balance on occasion. Slight unsteadiness noted. No instability. No overt LOB. Balance During Session: Posture: good Sitting - Static: Independent Sitting - Dynamic: Independent Standing - Static: SBA, Contact Guard Standing - Dynamic: Contact Guard, Min Assist SBA/CGA for Static standing balance. Pt able to perform hand hygiene and self-pericare with CGA/Staci for balance. Plan Continue acute PT per plan of care. Safety/Education Safety Safety Devices in place: All fall risk precautions in place, call light within reach, left in chair, gait belt, patient at risk for falls, nurse notified, and no alarms engaged upon entry Restraints: No Education Education Given To: patient Education Provided: PT Role, PT Goals, Gait Training, Plan of Care, Precautions, Transfer Training, Energy Conservation, Equipment, Fall Prevention Education, Discharge Recommendations, Benefits of Increasing Activity, and Breathing Techniques Education Method: Verbal, Demonstration, and Teach Back Barriers to Learning: None Education Outcome: Verbalized Understanding and Continued Education Needed Outcome Measures AM-PAC AM-PAC Inpatient Mobility Raw Score (No Stairs) : 15 JH-HLM JH-HLM Score: Walked 250 ft or more (i.e. several laps on unit) Goals Patient Stated Goal: to go home Encounter Problems Encounter Problems (Active) Mobility Patient will ambulate 100 feet with modified independence and least restrictive device in order to improve safety and independence with mobility. (Progressing) Start: 02/03/24 Expected End: 03/02/24 Transfers Patient will perform bed mobility with modified independence in order to improve independence and prepare for out of bed mobility. (Not Addressed) Start: 02/03/24 Expected End: 03/02/24 Patient will complete sit to stand transfer with modified independence to least restrictive device in order to improve safety and prepare for out of bed mobility. (Progressing) Start: 02/03/24 Expected End: 03/02/24 Therapy Time Individual Co-treatment Time In 904 Time Out 0948 Minutes 43 Timed Code Treatment Minutes: 43 Minutes (FA, GT x 2) Tiffany Brewster PTA Images from the original note were not included. OCCUPATIONAL THERAPY [facility] Initial Evaluation Name/MRN: Luiza May ([id number]) Evaluation Date: 02/07/2024 Date of : 1955 Admission Date: 01/28/2024 6:42 PM Age: 68 y.o. Room/Bed: T1-114/T1-114 A Discharge Recommendation: Continue to assess pending progress, IP Rehab, Home with Home health OT, 24 hour supervision or assist Equipment Needed: (continue to assess) Assessment IMPRESSION: Patient is a 68-year-old female hospitalized s/p possible seizure activity and respiratory failure. Patient is functionally independent with self-care tasks and functional mobility at baseline. Patient is limited by the deficits listed below. Patient is Supervision for UB ADLs, Contact Guard LB ADLs and Contact Guard toileting. Patient is Contact Guard for transfers/functional mobility. Recommending Home with Home OT, Home with 24/ Assist, Inpatient Rehab, and Continue to assess pending progress upon discharge. Admitting Diagnosis: stats epilepticus Performance Deficits /Impairments: Decreased Functional Mobility, Decreased ADL status, Decreased Strength, Decreased Safety Awareness, Decreased Endurance, and Decreased Balance Prognosis: Fair Decision Making: Medium Complexity Subjective Patient sitting in recliner; patient agreeable to therapy evaluation. RN ok'd for participation. Pain: Pt denies any current pain. Past Medical History: Past Medical History: Diagnosis Date Asthma CAD (coronary artery disease) Cerebral artery occlusion with cerebral infarction (HCC) COPD (chronic obstructive pulmonary disease) ([facility]) Hypertension Past Surgical History: Past Surgical History: Procedure Laterality Date APPENDECTOMY CHOLECYSTECTOMY COLONOSCOPY COLONOSCOPY CT CHEST ANGIOGRAM W AND/OR WO IV CONTRAST 07/26/2022 CT CHEST ANGIOGRAM W AND/OR WO IV CONTRAST 07/26/[address] [facility] [address] IMAGING Admission Diagnosis: Patient Active Problem List Diagnosis Date Noted Status epilepticus ([facility]/HCC) ([facility]) 01/28/2024 Seizure ([facility]) 09/26/2023 Severe malnutrition (CMS/HCC) ([facility]) 07/26/2022 COPD exacerbation ([facility]) 07/25/2022 Acute respiratory failure with hypoxia and hypercapnia ([facility]) 09/26/2023 Hemorrhage of gastrointestinal tract 04/17/2017 Cerebrovascular accident (CVA) due to embolism of cerebral artery ([facility]) 02/12/2017 Acute deep vein thrombosis (DVT) of distal vein of right lower extremity ([facility]) 02/12/2017 Encephalopathy 02/12/2017 Posterior reversible encephalopathy syndrome ([facility]) 02/12/2017 Alcohol abuse 02/10/2017 NSTEMI (non-ST elevated myocardial infarction) ([facility]) 02/10/2017 History of hematemesis 02/10/2017 Medical Precautions: No active isolations Proper PPE donned/doffed in accordance with facility standards. Fall Risk: Garcia Fall Risk Score: 60 (High Risk) Precautions/Restrictions: Seizure Precautions Lines/Drains/Airways: trach to trach mask, PIV Family/Caregiver Present: none Overall Cognitive Status: WFL Overall Orientation Status: Oriented x4 Social/Functional History Patient admitted from home. Lives With: Significant Other Type of Home: single family home Home Layout: Single Level Home Home Access: Stairs to Enter without Rails (# of stairs: 1) Bathroom Shower/Tub: Tub/Shower Combo and Grab Bars Toilet: Standard Home Equipment: front wheeled walker, wheelchair - manual, and shower seat Homemaking Responsibilities: Independent Receives Help From: Significant other Active Couture Alterations Dressmaker: No Prior Level of Function ADL Assistance: Independent Ambulation Assistance: Independent Transfer Assistance: Independent Objective ADLs LE Dressing: SBA, donning/doffing socks using figure-four method. Anticipate increased assistance with donning pants over hips secondary to balance. Toileting: SBA, anterior/posterior hygiene Grooming: SBA, brushing teeth while standing at sink Upper Extremity Assessment AROM: WFL PROM: Not assessed this session Strength: Exceptions: BUE strength: 3/5 Vision: no visual deficits Hearing: normal Bed Mobility NT- patient in recliner pre/post therapy evaluation Transfers/Functional Mobility Sit to stand: Contact Guard Stand to sit: Contact Guard Toilet: Contact Guard Standing balance: Contact Guard Functional mobility: Contact Guard Patient CGA for sit to stand from recliner. Patient requiring cueing for pushing up from recliner. Patient CGA for ambulation to commode. Patient requiring cueing for walker safety. Patient using grab bar to sit on commode. Patient with FAIR standing balance while standing at sink to brush teeth. Patient requiring assistance for management O2. Patient returned to the chair with CGA. Patient with no significant LOB but presents with overall unsteadiness. Patient HR up in the 150s while toileting. RN notified and states that this has been an ongoing issue. Device(s) used: Front wheeled walker AM-PAC AM-PAC Inpatient Daily Activity Raw Score: 21 ADL Inpatient CMS G-Code Modifier: CJ Plan Pt would benefit from skilled acute OT services to address Strengthening, Gait Training, Balance Training, Self-Care/ADL Training, Functional Mobility Training, Endurance Training, and Safety Education and Training. Frequency: 5x/week for 4 weeks Barriers: Impaired balance, Lower extremity weakness, Upper extremity weakness, and Decreased endurance Safety/Education Safety Safety Devices in place: All fall risk precautions in place, call light within reach, left in chair, and nurse notified Restraints: No Education Education Given To: patient Education Provided: OT Role, Plan of Care, Precautions, and Discharge Recommendations Education Method: Verbal Barriers to Learning: None Education Outcome: Continued Education Needed Goals Patient Stated Goal: to get stronger Encounter Problems Encounter Problems (Active) Balance Patient will maintain dynamic standing balance for 5-7 minutes with modified independence in order to demonstrate decreased risk of falling. Start: 02/07/24 Expected End: 03/06/24 Bathing Patient will utilize adaptive techniques to bathe body [place]. Start: 02/07/24 Expected End: 03/06/24 Dressing Upper Extremities Patient will complete upper body dressing [place]. Start: 02/07/24 Expected End: 03/06/24 Dressings Lower Extremities Patient will dress lower body [place]. Start: 02/07/24 Expected End: 03/06/24 OT Misc Patient will demonstrate 3-5 energy conservation techniques to increase independence with self-care tasks and functional mobility. Start: 02/07/24 Expected End: 03/06/24 Toileting Patient will complete toileting tasks at standard toilet with modified independence. Start: 02/07/24 Expected End: 03/06/24 Therapy Time Individual Co-treatment Time In 0829 Time Out 0854 Minutes 25 Timed Code Treatment Minutes: 10 Minutes (self care- 1) Emma Welsh OT Patient's Occupational Therapy Plan of Care supervision is transferred to a [facility] Occupational Therapist. Goals and/or treatment plan was established in collaboration with patient/family/other representatives. ICU Progress Note Name: Luiza May : 1955(68 y.o.) Date: 02/07/24 Team: MICU Attending: Dr. Alayna Gaxiola Subjective: Hospital Summary: 68 y/o F with PMH advanced COPD s/p trach from recent admission to [facility], presented 01/27 to [facility] with possible seizure. Her family called EMS when the pt had a shaking episode. A+Ox2 per EMS on arrival and pt was brought to the ER. The ER assessed and sent her home. Later in the day around 1400, the pt had another episode of shaking and was brought back again. At [facility] ED, she had a negative CTA/H and CXR. Unknown seizure history, most recent outpt notes do not have her on AEDs any longer. Family is concerned for increased delirium, primarily when she is non-compliant with her BiPAP. Patient has not been compliant with BiPAP overnight. Home machine brought in, identified as Astral 100 but unable to be used. Interval Events: No acute events overnight. Patient tolerated NIV full fask mask with trach capped overnight. Attempted to place patient on NIV through 980 but trach had significant cuff leak. Patient becomes very tachycardic with minimal activity, pt reached HR 150 while walking to the commode. Trach was replaced at bedside without difficulty. Scheduled Meds:albuterol, 2.5 mg, Nebulization, TID DULoxetine, 30 mg, Oral, Daily enoxaparin, 40 mg, SubCUTAneous, Daily famotidine, 20 mg, Oral, BID melatonin, 3 mg, Oral, Nightly mometasone-formoterol, 2 puff, Inhalation, BID predniSONE, 30 mg, Oral, Daily Followed by [START ON 02/08/2024] predniSONE, 20 mg, Oral, Daily Followed by [START ON 02/10/2024] predniSONE, 10 mg, Oral, Daily Followed by [START ON 02/12/2024] predniSONE, 5 mg, Oral, Daily sodium chloride 0.9%, 5-40 mL, IntraCATHeter, q8h tiotropium, 2 puff, Inhalation, Daily Continuous Infusions: Objective: Last Vitals: BP MAP 117/53 (02/07/24 0700) 71 (02/07/24699) Arterial BP MAP Temp 36.6 C (97.8 F) (02/07/24 0400) Pulse 94 (02/07/24699) Resp 21 (02/07/24699) SpO2 95 % (02/07/24699) Weight 58.5 kg (129 lb) (02/07/24599) BMI Body mass index is 22.85 kg/m . I/O: 02/05 700 - 02/06 659 In: 750 [P.O.:750] Out: 700 [Urine:700] Ventilator: Resp Rate (Set): 15 Vt (Set, mL): 400 mL FiO2 (%): 40 % PEEP/CPAP (cm H2O): 8 cm H20 Inspiratory Time (sec): 1.5 sec Oxygen Delivery: O2 Flow Rate (L/min): 5 L/min Invasive Lines / Tubes / Drains: CVC Triple Lumen 01/29/24 Non-tunneled Right Internal jugular (Active) Number of days: 8 External Urinary Catheter (Active) Number of days: 3 Surgical Airway Shiley 6 (Active) Number of days: Central Line Indication: Inadequate peripheral access despite documented ultrasound attempts AND unable to place extended dwell PIV Soliman Indications: NA - patient does not have a Soliman catheter Restraints: Restraints Non-Violent Or Non-Self Destructive Jan 29, 2024 10:49 Pm Edt NA - patient is not restrained. Wounds: Constitutional: General Appearance [x]WDWN []Obese []Cachectic []Thin []Ill Eyes: Inspection of Pupils/Irises Pupils round and react: [x]Yes []No Sclera: []Icteric [x]Non-Icteric Inspection of Conjunctiva/Lids Conjunctiva: []Injected [x]Non-Injected Lids: [x]Intact []Lesion Present ENT/Mouth: External Inspection of ears/nose [x] Normal [] Scar/Lesion/Mass Inspection of teeth/lips/gums Dentition: [][place] Teeth []Dentures Lips/Gums: [x]Intact []Lesion Present Mucosa: [x][place] [x]Moist []Dry Neck: External Appearance Overall Appearance: [x]Normal []Lesion/Mass/Crepitus Present Trachea midline: [x]Yes []No Thyroid [x]Normal []Enlarged []Tender []Mass []Absent Respiratory: Respiratory effort []Labored [x]Non-Labored [] Mechanically-Ventilated Auscultation [x]Clear []Crackles []Wheezes []Rhonchi Cardiovascular: Auscultation Rate: [x]Regular []Irregular []Tachycardia []Bradycardia Rhythm: [x]Regular []Irregular Murmur: []Present [x]Absent Extremities Peripheral Edema: []Present [x]Absent Varicosities: []Present [x]Absent Gastrointestinal: Abdomen Palpation: [x]Soft []Firm []Tender []Non-Tender []Distended [x]Non-distended Mass: []Present [x]Absent Bowel Sounds: []Present []Absent Hernia: []Present [x]Absent Liver/Spleen: []Hepatosplenomegaly [x]Organomegaly Absent Musculoskeletal: Inspection of Digits and Nails Cyanosis: []Present [x]Absent Clubbing: []Present [x]Absent Ischemia: []Present [x]Absent Infection: []Present [x]Absent Extremities REGALADO Equally: Except ([]RUE []RLE []LUE []LLE) Strength/Tone: Intact and Normal ([]RUE []RLE []LUE []LLE) Skin: Inspection [x]Normal []Rash []Lesion []Ulcer Palpation [x]Warm []Cool [x]Dry []Clammy []Nodules []Induration []Skin-tightening Cap-Refill: [] <3 sec [] >3 seconds (delayed) Neurologic: GCS EYE: 4 - Opens spontaneously GCS MOTOR: 6 - Obeys commands for movement GCS VERBAL: 5 - Oriented to person, place, time Total GCS: 15 [] Sensation grossly intact Psych: Mental Status Alert: [x]Yes [] No Oriented: []x0 []X1 []X2 [x]x3 Mood/Affect [x]Normal []Flat []Agitated []Depressed []Anxious []Calm []Sedated []NAD [facility] within last 24 hours- BMP: Recent Labs 02/05/2432202/06/24 0558 02/07/24 0549 NA 138 138 138 K 3.3* 3.1* 3.3* CL 96* 98 100 CO2 38* 39* 36* BUN 19* 21* 17 CREATININE 0.54 0.58 0.55 CALCIUM 9.2 9.0 8.6 LFTs:No results for input(s): AST , ALT , PROT , ALBUMIN , BILITOT , BILIRUBINU , ALKPHOS , LIPASE in the last 72 hours. Glucose: Recent Labs 02/05/2432202/06/24 0558 02/07/24 0549 GLUCOSE 95 90 83 Procal: No results for input(s): PROCAL in the last 72 hours. CBC: Recent Labs 02/05/2432202/05/24 0708 02/06/24 0558 02/07/24 0549 WBC 11.3* -- 11.0* 9.7 HGB 10.5* < > 11.3 10.1* 10.4 9.3* HCT 33.9* -- 32.5* 30.4* PLT 213 -- 225 222 MCV 86.3 -- 85.1 86.1 RDW 14.6 -- 14.9 15.2* < > = values in this interval not displayed. ABGs: Recent Labs 02/04/24 0953 02/07/24 0549 [id number] No data 30% Oxygen Lactic Acid: No results for input(s): LACTATE in the last 72 hours. INR: No results for input(s): INR in the last 72 hours. Cardiac Injury Profile: No results for input(s): CKTOTAL , CKMB , TROPONINI in the last 72 hours. Labs in Last 3 months: Lab Results Component Value Date TSH 1.148 01/29/2024 VITD25 32 01/29/2024 Microbiology- Urine Cx: Lab Results Component Value Date URINECX 07/29/2022 Insignificant growth based on current clinical guidelines Blood Cx: Lab Results Component Value Date BLOODCX No growth at 5 days 01/28/2024 Sputum Cx: Lab Results Component Value Date RESPCULT Few respiratory ailyn present. 01/28/2024 RESPCULT Moderate Pseudomonas aeruginosa (A) 01/28/2024 Gram Stain: Lab Results Component Value Date LABGRAM (A) 01/28/2024 Moderate Polymorphonuclear leukocytes per low power field LABGRAM Few Epithelial cells per low power field (A) 01/28/2024 LABGRAM Few Gram positive cocci (A) 01/28/2024 LABGRAM Few Gram positive bacilli (A) 01/28/2024 LABGRAM Few Gram negative bacilli (A) 01/28/2024 PNA PCR: Lab Results Component Value Date HUMANMETAPNE Not Detected 01/28/2024 COVID19: No results found for: COVID19 Legionella Ag: Lab Results Component Value Date LEGIONELLAPN Not Detected 01/28/2024 Strep Ag: No results for input(s): STREPPNEUMO in the last 72 hours. Imaging- NA Assessment and Plan: Principal Problem: Status epilepticus (CMS/HCC) ([facility]) Assessment and Plan: Acute on chronic hypoxic and hyperbapnic respiratory failure End stage COPD S/p tracheostomy - Most likely 2/2 polymicrobial LRTI and AECOPD - Home machine Astral 100 - VBG remains compensated even off PAP therapy - Patient has been non-compliant with nightly PAP therapy - High risk for decompensation - Chronic CO2 retention at baseline - Continue albuterol nebulizer TID, Dulera BID, Spiriva daily, Tessalon 100 mg TID PRN - Continue steroid taper - Trach successfully replaced at bedside, Enedina 7.5 cuffed Agitation, acute encephalopathy- resolved Prior stroke, prior traumatic SDH Anxiety/Depression Concern for possible seizure (most likely myoclonic jerking from elevated CO2) Concern for cognitive impairment - Continue Cymbalta 30 mg daily, Vistaril 25 mg Q8H PRN, Trazadone 50 mg nightly PRN - Palliative care following - Ongoing goals of care discussion with family - Currently full code - Geriatrics following -PT/OT - Tachycardia with minimal exertion Normocytic anemia - Remains stable, Hgb 9.3 Hypokalemia - Potassium replaced Previous EtOH abuse GI Prophylaxis: Pepcid PO/Enteral Tube DVT Prophylaxis: Lovenox 40 q 24hr - creatinine clearance >30 Disposition: Transfer to [facility] Critical Care Time: Total critical care time caring for this patient with life threatening, unstable organ failure, including direct patient contact, management of life support systems, review of data including imaging and labs, discussions with other team members and physicians, excluding procedures. Associated attestation - Alayna Gaxiola MD - 02/07/2024 5:26 PM EDT I have personally performed a [id number] diagnostic evaluation on this patient on date of service 02/07/24. History, labs, imaging studies, and electronic medical record have been reviewed by me. This note documented by the [x]warehouse general laborer []BACILIO reflects my history, exam, and medical decision making. I have reviewed and agree with the care plan. Changes were made in the orders as necessary. ROS documentation was reviewed and negative unless otherwise stated in HPI. Additional pertinent interval history, ROS, and physical exam findings: Pt was unable to use astral via trach d/t leaking cuff. Trach exchanged at bedside. She remains alert and conversant, though confused to the context of her issues - couldn't remember what happened last night. Plan to retry astral via trach tonight. OK for 7W. Patient placed on full face mask NIV through the 980 for HS with trach capped, per Dr Dougherty. Attempted to place patient on NIV through 980. Trach cuff not holding any air, causing massive leak and triggering low tidal volume/minute ventilation alarm. Nurse made aware, Dr. Dougherty notified. Placed patient back on trach mask 28% and 5L. Patient resting comfortably, call light in hand. Will continue to monitor. Unable to use pt's home Astral 100 machine as it doesn't allow interface change from full face mask to trach setup. Notified Dr. Villafuerte & new order placed for NIV through PB 980 tonight, to mimic home iVAPS settings: Min EPAP 4 / Max EPAP 14 Min PS 6 / Max PS 10 Set RR 15 Goal MV 4.1 L/m Rise time 200 msec Ti Min 0.50 sec Ti Max 1.5 sec Cycle 25% Trigger Medium Images from the original note were not included. OCCUPATIONAL THERAPY [facility] Name/MRN: Luiza May ([id number]) Date: 02/06/2024 OT eval and treat order received. Patient chart reviewed. Patient attempted this AM. Patient sleeping upon entry. Patient did wake up but requests therapy at later date due to being very tired. Will attempt as able. Emma Welsh OT ICU Progress Note Name: Luiza May : 1955(68 y.o.) Date: 02/06/24 Team: MICU Attending: Christo Subjective: Hospital Summary: 68 y/o F with PMH advanced COPD s/p trach from recent admission to [facility], presented 01/27 to [facility] with possible seizure. Her family called EMS when the pt had a shaking episode. A+Ox2 per EMS on arrival and pt was brought to the ER. The ER assessed and sent her home. Later in the day around 1400, the pt had another episode of shaking and was brought back again. At [facility] ED, she had a negative CTA/H and CXR. Unknown seizure history, most recent outpt notes do not have her on AEDs any longer. Family is concerned for increased delirium, primarily when she is non-compliant with her bipap. Interval Events: No acute events overnight. Did not wear PAP overnight. States she slept well. Nursing concerns that she is more short of breath with exertion. HR elevates to the 160s-170s with walking/up to bathroom. She is on 10L trach mask/40%, yesterday was on 8L Scheduled Meds:albuterol, 2.5 mg, Nebulization, TID DULoxetine, 30 mg, Oral, Daily enoxaparin, 40 mg, SubCUTAneous, Daily famotidine, 20 mg, Oral, BID melatonin, 3 mg, Oral, Nightly mometasone-formoterol, 2 puff, Inhalation, BID predniSONE, 30 mg, Oral, Daily Followed by [START ON 02/08/2024] predniSONE, 20 mg, Oral, Daily Followed by [START ON 02/10/2024] predniSONE, 10 mg, Oral, Daily Followed by [START ON 02/12/2024] predniSONE, 5 mg, Oral, Daily sodium chloride 0.9%, 5-40 mL, IntraCATHeter, q8h tiotropium, 2 puff, Inhalation, Daily ROS: complete ROS was performed and is negative except for above in interval history Objective: Last Vitals: BP MAP (!) 123/103 (02/06/24 1100) 112 (02/06/24 1100) Arterial BP MAP Temp 36.2 C (97.1 F) (02/06/24 0800) Pulse 102 (02/06/24 1100) Resp 23 (02/06/24 1100) SpO2 95 % (02/06/24 1100) Weight 61.9 kg (136 lb 7.4 oz) (02/06/24 0540) BMI Body mass index is 24.17 kg/m . I/O: 02/04 0700 - 02/05 0659 In: 10 Out: 1100 [Urine:1100] Ventilator: Resp Rate (Set): 12 Vt (Set, mL): 400 mL FiO2 (%): 40 % PEEP/CPAP (cm H2O): 8 cm H20 Inspiratory Time (sec): 0.85 sec Oxygen Delivery: O2 Flow Rate (L/min): 10 L/min Invasive Lines / Tubes / Drains: CVC Triple Lumen 01/29/24 Non-tunneled Right Internal jugular (Active) Number of days: 7 External Urinary Catheter (Active) Number of days: 2 Surgical Airway Shiley 6 (Active) Number of days: Central Line Indication: Inadequate peripheral access despite documented ultrasound attempts AND unable to place extended dwell PIV Soliman Indications: NA - patient does not have a Soliman catheter Restraints: Restraints Non-Violent Or Non-Self Destructive Jan 29, 2024 10:49 Pm Edt NA - patient is not restrained. Wounds: Wound/Incision 10/03/23 Other (comment) Perineum (Active) Date First Assessed: 10/03/23 Primary Wound Type: Other (comment) Location: Perineum Wound Description (Comments): Incontinence-related dermatitis Non-staged Wound Description: Not applicable Wound/Incision 10/12/23 Skin Tear Forearm Anterior;Left (Active) Date First Assessed/Time First Assessed: 10/12/23 0600 Primary Wound Type: (c) Skin Tear Location: Forearm Wound Location Orientation: Anterior;Left Constitutional: General Appearance []WDWN []Obese []Cachectic [x]Thin [x]Ill Eyes: Inspection of Pupils/Irises Pupils round and react: []Yes []No Sclera: []Icteric [x]Non-Icteric Inspection of Conjunctiva/Lids Conjunctiva: []Injected [x]Non-Injected Lids: [x]Intact []Lesion Present ENT/Mouth: External Inspection of ears/nose [] Normal [] Scar/Lesion/Mass Inspection of teeth/lips/gums Dentition: [][place] Teeth []Dentures Lips/Gums: []Intact []Lesion Present Mucosa: [x]Celada [x]Moist []Dry Neck: External Appearance Overall Appearance: []Normal []Lesion/Mass/Crepitus Present Trachea midline: [x]Yes []No Thyroid []Normal []Enlarged []Tender []Mass []Absent Respiratory: Respiratory effort []Labored [x]Non-Labored [] Mechanically-Ventilated Auscultation []Clear []Crackles [x]Wheezes [x]Rhonchi Cardiovascular: Auscultation Rate: [x]Regular []Irregular [x]Tachycardia []Bradycardia Rhythm: [x]Regular []Irregular Murmur: []Present []Absent Extremities Peripheral Edema: []Present [x]Absent Varicosities: []Present []Absent Gastrointestinal: Abdomen Palpation: [x]Soft []Firm []Tender []Non-Tender []Distended [x]Non-distended Mass: []Present []Absent Bowel Sounds: [x]Present []Absent Hernia: []Present []Absent Liver/Spleen: []Hepatosplenomegaly []Organomegaly Absent Musculoskeletal: Inspection of Digits and Nails Cyanosis: []Present [x]Absent Clubbing: []Present [x]Absent Ischemia: []Present []Absent Infection: []Present []Absent Extremities REGALADO Equally: ([x]RUE [x]RLE [x]LUE [x]LLE) Strength/Tone: Intact and Normal ([]RUE []RLE []LUE []LLE) Skin: Inspection [x]Normal []Rash []Lesion []Ulcer Palpation [x]Warm []Cool []Dry []Clammy []Nodules []Induration []Skin-tightening Cap-Refill: [x] <3 sec [] >3 seconds (delayed) Neurologic: GCS EYE: 4 - Opens spontaneously GCS MOTOR: 6 - Obeys commands for movement GCS VERBAL: 5 - Oriented to person, place, time Total GCS: 15 [] Sensation grossly intact Psych: Mental Status Alert: [x]Yes [] No Oriented: []x0 []X1 []X2 [x]x3 Mood/Affect []Normal []Flat []Agitated []Depressed []Anxious [x]Calm []Sedated [x]NAD [facility] within last 24 hours- BMP: Recent Labs 02/04/24 0223 02/05/24 0323 02/06/24 0558 NA 139 138 138 K 3.0* 3.3* 3.1* CL 99 96* 98 CO2 35* 38* 39* BUN 23* 19* 21* CREATININE 0.54 0.54 0.58 CALCIUM 8.9 9.2 9.0 LFTs:No results for input(s): AST , ALT , PROT , ALBUMIN , BILITOT , BILIRUBINU , ALKPHOS , LIPASE in the last 72 hours. Glucose: Recent Labs 02/04/24 0223 02/05/24 0323 02/06/24 0558 GLUCOSE 99 95 90 Procal: No results for input(s): PROCAL in the last 72 hours. CBC: Recent Labs 02/04/24 0223 02/04/24 0953 02/05/24 0323 02/05/24 0708 02/06/24 0558 WBC 11.3* -- 11.3* -- 11.0* HGB 9.4* < > 10.5* 12.0 11.3 10.1* HCT 30.2* -- 33.9* -- 32.5* PLT 182 -- 213 -- 225 MCV 85.1 -- 86.3 -- 85.1 RDW 14.4 -- 14.6 -- 14.9 < > = values in this interval not displayed. ABGs: Recent Labs 02/04/24 0953 [id number] No data Lactic Acid: No results for input(s): LACTATE in the last 72 hours. INR: No results for input(s): INR in the last 72 hours. Cardiac Injury Profile: No results for input(s): CKTOTAL , CKMB , TROPONINI in the last 72 hours. Labs in Last 3 months: Lab Results Component Value Date TSH 1.148 01/29/2024 VITD25 32 01/29/2024 Microbiology- Urine Cx: Lab Results Component Value Date URINECX 07/29/2022 Insignificant growth based on current clinical guidelines Blood Cx: Lab Results Component Value Date BLOODCX No growth at 5 days 01/28/2024 Sputum Cx: Lab Results Component Value Date RESPCULT Few respiratory ailyn present. 01/28/2024 RESPCULT Moderate Pseudomonas aeruginosa (A) 01/28/2024 Gram Stain: Lab Results Component Value Date LABGRAM (A) 01/28/2024 Moderate Polymorphonuclear leukocytes per low power field LABGRAM Few Epithelial cells per low power field (A) 01/28/2024 LABGRAM Few Gram positive cocci (A) 01/28/2024 LABGRAM Few Gram positive bacilli (A) 01/28/2024 LABGRAM Few Gram negative bacilli (A) 01/28/2024 PNA PCR: Lab Results Component Value Date HUMANMETAPNE Not Detected 01/28/2024 COVID19: No results found for: COVID19 Legionella Ag: Lab Results Component Value Date LEGIONELLAPN Not Detected 01/28/2024 Assessment and Plan: Principal Problem: Status epilepticus (CMS/HCC) ([facility]) Assessment: -acute on chronic hypoxic and hypercapnic respiratory failure-2/2 polymicrobial LRTI and AECOPD -states at baseline she wears Trilogy at night (though historically noncompliant) -agitation, acute encephalopathy-resolved -possible seizure-likely not a seizure but myoclonic jerking from elevated C02 -concern for cognitive impairment -end stage COPD -prior stroke, prior traumatic SDH -previous EtOH abuse -normocytic anemia -anxiety/depression -noncompliance -hypokalemia Plan: -patient's VBGs have remained compensated even off PAP therapy. However, patient is at high risk for decompensation. In addition, her labs (chronically elevated C02) demonstrate she retains C02 at baseline. She would benefit from nightly PAP. Will trial PAP therapy through the trach rather than through a face mask to see if her compliance is improved -cont steroid taper. Stop duonebs. Start albuterol nebs. Start Dulera and Spiriva -cont Cymbalta for anxiety/depression, has prn trazodone for insomnia. Also has prn hydroxyzine for anxiety. -palliative care following. Ongoing GOC with patient/family. Currently full code -potassium repleted -PT/OT -monitor in ICU one additional day, if remains stable can transfer to [facility] Prophylaxis: Pepcid PO/Enteral Tube DVT Prophylaxis: Lovenox 40 q 24hr - creatinine clearance >30 Disposition: Remain in ICU Status Critical Care Time: 33 minutes Total critical care time caring for this patient with life threatening, unstable organ failure, including direct patient contact, management of life support systems, review of data including imaging and labs, discussions with other team members and physicians, excluding procedures. Family Communication Number Called: [phone] Name of Designated Family Disbursing Agent: Ameena Relationship: daughter Phone Call Outcome: I spoke with the individual listed above. Family Disbursing Agent Updated on the Following: Spoke with daughter Ameena to obtain background history about patient's medical history/trach/concern for cognitive issues. Ameena states this is the patient's 2nd trach. She states she has had a Bipap machine for several years now, that it was unclear to her after DC from [facility] and then SNF if she was still supposed to be using the machine, but that she noticed that her mom seemed to do better after wearing it. When her mom didn't wear it she would often have seizures and appear glassy eyed and be more tired. She relays a concern about ongoing decline of her mother, especially over the past several months. She states her breathing is not as well controlled, she seems more dependent in needs, and her overall functional status has declined. She also states she has had ongoing memory problems for several years now, but worsened over the past several months. She states she has been worried about dementia for some time but does not feel like other providers have taken her seriously when she has brought up this concern. Ameena states she did not realize that her mom has end stage COPD, but does state she was told in the past that she has stage IV COPD. I explained that given the severity of her lung disease, her history of poor compliance, and her worsening mentation, I do not feel it would be a good idea to decannulate the trach. My concern is that she has a high likelihood of further exacerbations that could lead to re-intubation if the trach is no longer in place. I also attempted to discuss code status with Ameena. She states she thinks her mom would want everything done, but that if she ended up on a ventilator and would not wake up, she would not want to live like that. She wishes for her mom to remain full code. Of note, when I discussed code status with the patient today, she also stated she wished to remain full code. ICU Progress Note Name: Luiza May : 1955(68 y.o.) Date: 02/05/24 Team: MICU Attending: Christo Subjective: Hospital Summary: 68 y/o F with PMH advanced COPD s/p trach from recent admission to [facility], presented 01/27 to [facility] with possible seizure. Her family called EMS when the pt had a shaking episode. A+Ox2 per EMS on arrival and pt was brought to the ER. The ER assessed and sent her home. Later in the day around 1400, the pt had another episode of shaking and was brought back again. At [facility] ED, she had a negative CTA/H and CXR. Unknown seizure history, most recent outpt notes do not have her on AEDs any longer. Family is concerned for increased delirium, primarily when she is non-compliant with her bipap. Interval Events: No acute events. Did not wear PAP much overnight, per nursing/RT at most 2 hours. Patient states she does not remember what happened, but she does think she removed it. Took trazodone last night for sleep, feels it helped her sleep, but states she did not like the way it initially made her feel. No CP, SOB is at baseline, no N/V/abd pain. Tolerating PO diet. Scheduled Meds:budesonide, 0.5 mg, Nebulization, Daily DULoxetine, 30 mg, Oral, Daily enoxaparin, 40 mg, SubCUTAneous, Daily famotidine (Pepcid) 20 mg in sodium chloride (PF) 0.9 % 10 mL injection, 20 mg, IntraVENous, BID ipratropium-albuterol, 3 mL, Nebulization, TID melatonin, 3 mg, Oral, Nightly [START ON 02/06/2024] predniSONE, 30 mg, Oral, Daily Followed by [START ON 02/08/2024] predniSONE, 20 mg, Oral, Daily Followed by [START ON 02/10/2024] predniSONE, 10 mg, Oral, Daily Followed by [START ON 02/12/2024] predniSONE, 5 mg, Oral, Daily sodium chloride 0.9%, 5-40 mL, IntraCATHeter, q8h ROS: complete ROS was performed and is negative except for above in interval events Objective: Last Vitals: BP MAP (!) 134/103 (02/05/24 1100) 113 (02/05/24 1100) Arterial BP MAP Temp 36.1 C (96.9 F) (02/05/24899) Pulse (!) 137 (02/05/24 1100) Resp (!) 28 (02/05/24 1100) SpO2 92 % (02/05/24 1100) Weight 60.8 kg (134 lb 0.6 oz) (02/05/24599) BMI Body mass index is 23.74 kg/m . I/O: 02/03 700 - 02/04 659 In: 690 [P.O.:600; I.V.:90] Out: 2250 [Urine:2250] Ventilator: Resp Rate (Set): 12 Vt (Set, mL): 400 mL FiO2 (%): 40 % PEEP/CPAP (cm H2O): 8 cm H20 Inspiratory Time (sec): 0.85 sec Oxygen Delivery: O2 Flow Rate (L/min): 8 L/min Invasive Lines / Tubes / Drains: CVC Triple Lumen 01/29/24 Non-tunneled Right Internal jugular (Active) Number of days: 6 External Urinary Catheter (Active) Number of days: 1 Surgical Airway Shiley 6 (Active) Number of days: Central Line Indication: Inadequate peripheral access despite documented ultrasound attempts AND unable to place extended dwell PIV Soliman Indications: NA - patient does not have a Soliman catheter Restraints: Restraints Non-Violent Or Non-Self Destructive Jan 29, 2024 10:49 Pm Edt NA - patient is not restrained. Wounds: Wound/Incision 10/03/23 Other (comment) Perineum (Active) Date First Assessed: 10/03/23 Primary Wound Type: Other (comment) Location: Perineum Wound Description (Comments): Incontinence-related dermatitis Non-staged Wound Description: Not applicable Wound/Incision 10/12/23 Skin Tear Forearm Anterior;Left (Active) Date First Assessed/Time First Assessed: 10/12/23599 Primary Wound Type: (c) Skin Tear Location: Forearm Wound Location Orientation: Anterior;Left Constitutional: General Appearance []WDWN []Obese []Cachectic [x]Thin [x]Ill Eyes: Inspection of Pupils/Irises Pupils round and react: []Yes []No Sclera: []Icteric []Non-Icteric Inspection of Conjunctiva/Lids Conjunctiva: []Injected []Non-Injected Lids: [x]Intact []Lesion Present ENT/Mouth: External Inspection of ears/nose [x] Normal [] Scar/Lesion/Mass Inspection of teeth/lips/gums Dentition: [][place] Teeth []Dentures Lips/Gums: []Intact []Lesion Present Mucosa: [x]Celada [x]Moist []Dry Neck: External Appearance Overall Appearance: [x]Normal []Lesion/Mass/Crepitus Present Trachea midline: [x]Yes []No Trach with PMV in place, trach mask oxygen Thyroid []Normal []Enlarged []Tender []Mass []Absent Respiratory: Respiratory effort [x]Labored-mild conversational dyspnea []Non-Labored [] Mechanically-Ventilated Auscultation []Clear []Crackles [x]Wheezes []Rhonchi Cardiovascular: Auscultation Rate: [x]Regular []Irregular []Tachycardia []Bradycardia Rhythm: [x]Regular []Irregular Murmur: []Present []Absent Extremities Peripheral Edema: []Present [x]Absent Varicosities: []Present []Absent Gastrointestinal: Abdomen Palpation: [x]Soft []Firm []Tender []Non-Tender []Distended []Non-distended Mass: []Present [x]Absent Bowel Sounds: [x]Present []Absent Hernia: []Present []Absent Liver/Spleen: []Hepatosplenomegaly []Organomegaly Absent Musculoskeletal: Inspection of Digits and Nails Cyanosis: []Present [x]Absent Clubbing: []Present []Absent Ischemia: []Present []Absent Infection: []Present []Absent Extremities REGALADO Equally ([x]RUE [x]RLE [x]LUE [x]LLE) Strength/Tone: Intact and Normal ([]RUE []RLE []LUE []LLE) Skin: Inspection [x]Normal []Rash []Lesion []Ulcer Palpation [x]Warm []Cool []Dry []Clammy []Nodules []Induration []Skin-tightening Cap-Refill: [x] <3 sec [] >3 seconds (delayed) Neurologic: GCS EYE: 4 - Opens spontaneously GCS MOTOR: 6 - Obeys commands for movement GCS VERBAL: 5 - Oriented to person, place, time Total GCS: 15 [] Sensation grossly intact Psych: Mental Status Alert: [x]Yes [] No Oriented: []x0 []X1 []X2 [x]x3 Mood/Affect [x]Normal []Flat []Agitated []Depressed []Anxious [x]Calm []Sedated [x]NAD [facility] within last 24 hours- BMP: Recent Labs 02/03/2445702/04/2422202/05/24 0323 NA 140 139 138 K 3.1* 3.0* 3.3* CL 104 99 96* CO2 33* 35* 38* BUN 26* 23* 19* CREATININE 0.61 0.54 0.54 CALCIUM 8.9 8.9 9.2 LFTs:No results for input(s): AST , ALT , PROT , ALBUMIN , BILITOT , BILIRUBINU , ALKPHOS , LIPASE in the last 72 hours. Glucose: Recent Labs 02/03/2445702/04/2422202/05/24 0323 GLUCOSE 97 99 95 Procal: No results for input(s): PROCAL in the last 72 hours. CBC: Recent Labs 02/03/2445702/04/2422202/04/24 0953 02/05/24 0323 02/05/24 0708 WBC 9.4 11.3* -- 11.3* -- HGB 9.8 9.1* 9.4* 11.1 10.5* 12.0 HCT 29.7* 30.2* -- 33.9* -- PLT 152 182 -- 213 -- MCV 87.1 85.1 -- 86.3 -- RDW 14.6 14.4 -- 14.6 -- ABGs: Recent Labs 02/03/2445702/04/24 0953 [id number] Bi-PAP No data Lactic Acid: No results for input(s): LACTATE in the last 72 hours. INR: No results for input(s): INR in the last 72 hours. Cardiac Injury Profile: No results for input(s): CKTOTAL , CKMB , TROPONINI in the last 72 hours. Labs in Last 3 months: Lab Results Component Value Date TSH 1.148 01/29/2024 VITD25 32 01/29/2024 Microbiology- Urine Cx: Lab Results Component Value Date URINECX 07/29/2022 Insignificant growth based on current clinical guidelines Blood Cx: Lab Results Component Value Date BLOODCX No growth at 5 days 01/28/2024 Sputum Cx: Lab Results Component Value Date RESPCULT Few respiratory ailyn present. 01/28/2024 RESPCULT Moderate Pseudomonas aeruginosa (A) 01/28/2024 Gram Stain: Lab Results Component Value Date LABGRAM (A) 01/28/2024 Moderate Polymorphonuclear leukocytes per low power field LABGRAM Few Epithelial cells per low power field (A) 01/28/2024 LABGRAM Few Gram positive cocci (A) 01/28/2024 LABGRAM Few Gram positive bacilli (A) 01/28/2024 LABGRAM Few Gram negative bacilli (A) 01/28/2024 Assessment and Plan: Principal Problem: Status epilepticus (CMS/HCC) ([facility]) Assessment: -acute on chronic hypoxic and hypercapnic respiratory failure-2/2 polymicrobial LRTI and AECOPD -states at baseline she wears Trilogy at night (though historically noncompliant) -agitation, acute encephalopathy-resolved -possible seizure-likely not a seizure but myoclonic jerking from elevated C02 -concern for cognitive impairment -end stage COPD -prior stroke, prior traumatic SDH -previous EtOH abuse -normocytic anemia -anxiety/depression -noncompliance -hypokalemia Plan: -patient's VBGs have remained compensated the past 2 days despite poor compliance with PAP therapy. Based on her labs (chronically elevated C02), she would benefit from nightly PAP. Would recommend trialing PAP therapy through the trach rather than through a face mask to see if her compliance is improved -finished Abx course for HAP yesterday -cont steroids, nebs, budesonide nebs. Cont PO steroid wean -hold on further diuresis -cont Cymbalta for anxiety/depression, has prn trazodone for insomnia. Also has prn hydroxyzine for anxiety. -palliative care following. Ongoing GOC with patient/family. Currently full code -geriatrics consult placed today to evaluate for possible cognitive impairment -potassium repleted GI Prophylaxis: Pepcid PO/Enteral Tube DVT Prophylaxis: Lovenox 40 q 24hr - creatinine clearance >30 Disposition: Remain in ICU Status Critical Care Time: 33 minutes Total critical care time caring for this patient with life threatening, unstable organ failure, including direct patient contact, management of life support systems, review of data including imaging and labs, discussions with other team members and physicians, excluding procedures. Nutrition Assessment Type and Reason for Visit: Reassess Nutrition Recommendations/Plan: Continue regular diet as ordered Per MNT protocol, will trial Magic Cup BID to promote adequate intake RD will continue to monitor overall nutrition status and will follow weekly Malnutrition Assessment: Malnutrition Status: At risk for malnutrition (Comment) (variable intake, increased nutrition needs) Nutrition Assessment: Per chart, pt with PMH advanced COPD s/p trach from recent admission to [facility], presented earlier today to [facility] with possible seizure. Her family called EMS when the pt had a shaking episode. A+Ox2 per EMS on arrival and pt was brought to the ER. The ER assessed and sent her home. Later in the day around 1400, the pt had another episode of shaking and was brought back again. At [facility] ED, she had a negative CTA/H and CXR. Unknown seizure history, most recent outpt notes do not have her on AEDs any longer. Family is concerned for increased delirium, primarily when she is non-compliant with her bipap. Interval Events: No acute events overnight. Patient worse NIV overnight, had no issues with tolerating it. Patient states today is a good day. Denies CP, SOB. States her breathing is at baseline. No N/V. Appetite good. No new complaints today. Still not able/ready to discuss DNR status. Pt is documented with variable intake, stable weight for admission, feels she is doing well with eating, however agreeable to trying Magic Cup to supplement (does not like Ensure). Estimated Daily Nutrient Needs: Energy Requirements Based On: Kcal/kg Weight Used for Energy Requirements: Admission (25-30 kcal/kg) Weight for Energy Calculation (kg): 59.8 kg Total Energy Requirements (kcals/day): 2983-6842 Weight Used for Protein Requirements: Admission (1.0-1.2 g/kg) Weight in Kg Used for Protein Requirements: 59.8 kg Estimated Total Protein (g/day): 60-72 Estimated Daily Total Fluid (ml/day): per Nutrition Related Findings: Nutrition History: Independent of feeding. Lives with: Spouse/significant other Teeth: Intact Room Service Room Service: Assist GI symptoms: None at this time. Nacho Scale Score: 19. Wound Type: None Net IO Since Admission: 1,988.52 mL [02/04/24 1010] Edema: RUE Edema: None, LUE Edema: None, RLE Edema: Other (Comment) (None), LLE Edema: Other (Comment) (NOne) Bowel Sounds (All Quadrants): Active Abdomen Inspection: Soft, Rounded Last BM Date: 02/03/24 O2 Delivery Method: Trach mask, FiO2 (%): 30 %, O2 Flow Rate (L/min): 8 L/min Labs and meds reviewed: budesonide, 0.5 mg, Nebulization, Daily DULoxetine, 20 mg, Oral, Daily enoxaparin, 40 mg, SubCUTAneous, Daily famotidine (Pepcid) 20 mg in sodium chloride (PF) 0.9 % 10 mL injection, 20 mg, IntraVENous, BID ipratropium-albuterol, 3 mL, Nebulization, TID melatonin, 3 mg, Oral, Nightly potassium chloride, , , predniSONE, 40 mg, Oral, Daily Followed by [START ON 02/06/2024] predniSONE, 30 mg, Oral, Daily Followed by [START ON 02/08/2024] predniSONE, 20 mg, Oral, Daily Followed by [START ON 02/10/2024] predniSONE, 10 mg, Oral, Daily Followed by [START ON 02/12/2024] predniSONE, 5 mg, Oral, Daily sodium chloride 0.9%, 5-40 mL, IntraCATHeter, q8h BMP: Recent Labs 02/02/24 0000 02/03/24 0458 02/04/24 0223 NA 138 140 139 K 3.7 3.1* 3.0* CL 103 104 99 CO2 32* 33* 35* BUN 23* 26* 23* CREATININE 0.58 0.61 0.54 GLUCOSE 78 97 99 CALCIUM 8.7 8.9 8.9 Lab Results Component Value Date VITD25 32 01/29/2024 Lab Results Component Value Date EFBP 54 (A) 09/28/2023 Current Nutrition Therapies: Adult diet Regular Current Oral Intake Average Meal Intake: 1-25%, 26-50%, 51-75%, 76-100% Average Supplements Intake: None Ordered Anthropometric Measures: Height: 160 cm (5' 3 ) Current Body Weight: 63.9 kg (140 lb 14 oz) (02/03) Admission Body Weight: 59.8 kg (131 lb 13.4 oz) ([facility] 01/27) Usual Body Weight: (119# on 02/05/23, 133# on 05/24/23, 130# on 12/24/23) [place]ona Body Weight (lbs) (Calculated): 115 lbs [place] Body Weight (Kg) (Calculated): 52 kg % [place] Body Weight (Calculated): 122.5 % BMI (kg/m2) (Calculated): 25 BMI Categories: Normal Weight (BMI 22.0 to 24.9) age over 65 Wt Readings from Last 10 Encounters: 02/04/24 63.9 kg (140 lb 14 oz) 10/10/23 71 kg (156 lb 8.4 oz) 07/26/22 55.2 kg (121 lb 9.6 oz) Nutrition Diagnosis: Increased nutrient needs related to impaired respiratory function as evidenced by (admission with hypercapnia and hypoxia) Nutrition Interventions: Food and/or Nutrient Delivery: Continue Current Diet, Start Oral Nutrition Supplement Nutrition Education/Counseling: No recommendation at this time Coordination of Nutrition Care: Continue to monitor while inpatient Goals: Goals: PO intake 75% or greater, by next RD assessment Nutrition Monitoring and Evaluation: Behavioral-Environmental Outcomes: None Identified Food/Nutrient Intake Outcomes: Food and Nutrient Intake Physical Signs/Symptoms Outcomes: Biochemical Data, GI Status, Nutrition Focused Physical Findings, Skin, Weight Discharge Planning: Too soon to determine Ginny Reid RD, LD Contact: *[phone] or via Material Mix Vancomycin therapy has been discontinued by Dr. Mildred Villafuerte on 02/04/24. Thank you for the consult. Pharmacy signing off for vancomycin dosing. Irena Boston RPh, Date: 02/04/24 Time: 9:18 AM Pharmacy to Dose Vancomycin - Progress Note Lab Results Component Value Date CREATININE 0.54 02/04/2024 BUN 23 (H) 02/04/2024 WBC 11.3 (H) 02/04/2024 VANCOTROUGH 20.7 (H) 02/02/2024 Doses, serum creatinine, and vancomycin levels interfaced automatically to [employer] and data has been analyzed and interpreted. Infectious Diagnosis: pneumonia Est CrCl: 99 mL/min (Cockcroft-Gault) Assessment: Current regimen vancomycin 1750 mg every 24 hours Predicted AUC = 440 mg/L*hr (goal 400-600 mg/L*hr) PAUC = 77% (probability that AUC is >400 mg/L*hr) Pconc = 0% (probability that Ctrough is above 20 mcg/mL (toxicity)) Plan: Renal fxn stable. Predicted AUC in therapeutic range. Continue current vancomycin regimen. Will continue to follow and adjust as needed. DATE: 02/04/24 TIME: 8:53 AM Nelson Nicole RPh Clinical Pharmacist Available via Secure Chat ICU Progress Note Name: Luiza May : 1955(68 y.o.) Date: 02/04/24 Team: MICU Attending: Dr. Mildred Villafuerte Subjective: Hospital Summary: 68 y/o F with PMH advanced COPD s/p trach from recent admission to [facility], presented 01/27 to [facility] with possible seizure. Her family called EMS when the pt had a shaking episode. A+Ox2 per EMS on arrival and pt was brought to the ER. The ER assessed and sent her home. Later in the day around 1400, the pt had another episode of shaking and was brought back again. At [facility] ED, she had a negative CTA/H and CXR. Unknown seizure history, most recent outpt notes do not have her on AEDs any longer. Family is concerned for increased delirium, primarily when she is non-compliant with her bipap. Interval Events: Patient alert, vitals stable. States she was not on NIV overnight because the patient refused. However VBG is improved this morning with CO2 54.9. Scheduled Meds:budesonide, 0.5 mg, Nebulization, Daily cefepime, 2,000 mg, IntraVENous, q8h DULoxetine, 20 mg, Oral, Daily enoxaparin, 40 mg, SubCUTAneous, Daily famotidine (Pepcid) 20 mg in sodium chloride (PF) 0.9 % 10 mL injection, 20 mg, IntraVENous, BID ipratropium-albuterol, 3 mL, Nebulization, TID melatonin, 3 mg, Oral, Nightly potassium chloride, , , predniSONE, 40 mg, Oral, Daily Followed by [START ON 02/06/2024] predniSONE, 30 mg, Oral, Daily Followed by [START ON 02/08/2024] predniSONE, 20 mg, Oral, Daily Followed by [START ON 02/10/2024] predniSONE, 10 mg, Oral, Daily Followed by [START ON 02/12/2024] predniSONE, 5 mg, Oral, Daily sodium chloride 0.9%, 5-40 mL, IntraCATHeter, q8h vancomycin, 1,750 mg, IntraVENous, q24h Continuous Infusions: Objective: Last Vitals: BP MAP 132/72 (02/04/24599) 83 (02/04/24599) Arterial BP MAP Temp 37 C (98.6 F) (02/04/24 0400) Pulse 87 (02/04/24599) Resp (!) 28 (02/04/24599) SpO2 94 % (02/04/24599) Weight 63.9 kg (140 lb 14 oz) (02/04/24599) BMI Body mass index is 24.95 kg/m . I/O: 02/02 0700 - 02/03 659 In: 3920 [P.O.:800; I.V.:120] Out: 2880 [Urine:2880] Ventilator: Resp Rate (Set): 12 Vt (Set, mL): 400 mL FiO2 (%): 35 % PEEP/CPAP (cm H2O): 8 cm H20 Inspiratory Time (sec): 0.85 sec Oxygen Delivery: O2 Flow Rate (L/min): 10 L/min Invasive Lines / Tubes / Drains: CVC Triple Lumen 01/29/24 Non-tunneled Right Internal jugular (Active) Number of days: 5 Surgical Airway Shiley 6 (Active) Number of days: Central Line Indication: Inadequate peripheral access despite documented ultrasound attempts AND unable to place extended dwell PIV Soliman Indications: NA - patient does not have a Soliman catheter Restraints: Restraints Non-Violent Or Non-Self Destructive Jan 29, 2024 10:49 Pm Edt NA - patient is not restrained. Wounds: Wound/Incision 10/03/23 Other (comment) Perineum (Active) Date First Assessed: 10/03/23 Primary Wound Type: Other (comment) Location: Perineum Wound Description (Comments): Incontinence-related dermatitis Non-staged Wound Description: Not applicable Wound/Incision 10/12/23 Skin Tear Forearm Anterior;Left (Active) Date First Assessed/Time First Assessed: 10/12/23 0600 Primary Wound Type: (c) Skin Tear Location: Forearm Wound Location Orientation: Anterior;Left Constitutional: General Appearance [x]WDWN []Obese []Cachectic []Thin []Ill Eyes: Inspection of Pupils/Irises Pupils round and react: [x]Yes []No Sclera: []Icteric [x]Non-Icteric Inspection of Conjunctiva/Lids Conjunctiva: []Injected [x]Non-Injected Lids: [x]Intact []Lesion Present ENT/Mouth: External Inspection of ears/nose [x] Normal [] Scar/Lesion/Mass Inspection of teeth/lips/gums Dentition: [][place] Teeth []Dentures Lips/Gums: [x]Intact []Lesion Present Mucosa: [x]Celada [x]Moist []Dry Neck: External Appearance Overall Appearance: [x]Normal []Lesion/Mass/Crepitus Present Trachea midline: [x]Yes []No Thyroid [x]Normal []Enlarged []Tender []Mass []Absent Respiratory: Respiratory effort []Labored [x]Non-Labored [] Mechanically-Ventilated Auscultation [x]Clear []Crackles []Wheezes []Rhonchi Cardiovascular: Auscultation Rate: [x]Regular []Irregular []Tachycardia []Bradycardia Rhythm: [x]Regular []Irregular Murmur: []Present [x]Absent Extremities Peripheral Edema: []Present [x]Absent Varicosities: []Present [x]Absent Gastrointestinal: Abdomen Palpation: [x]Soft []Firm []Tender []Non-Tender []Distended [x]Non-distended Mass: []Present [x]Absent Bowel Sounds: []Present [x]Absent Hernia: []Present [x]Absent Liver/Spleen: []Hepatosplenomegaly [x]Organomegaly Absent Musculoskeletal: Inspection of Digits and Nails Cyanosis: []Present [x]Absent Clubbing: []Present [x]Absent Ischemia: []Present [x]Absent Infection: []Present [x]Absent Extremities REGALADO Equally: Except ([]RUE []RLE []LUE []LLE) Strength/Tone: Intact and Normal ([x]RUE [x]RLE [x]LUE [x]LLE) Skin: Inspection [x]Normal []Rash []Lesion []Ulcer Palpation [x]Warm []Cool []Dry []Clammy []Nodules []Induration []Skin-tightening Cap-Refill: [] <3 sec [] >3 seconds (delayed) Neurologic: GCS EYE: 4 - Opens spontaneously GCS MOTOR: 6 - Obeys commands for movement GCS VERBAL: 5 - Oriented to person, place, time Total GCS: 15 [x] Sensation grossly intact Psych: Mental Status Alert: [x]Yes [] No Oriented: []x0 []X1 []X2 [x]x3 Mood/Affect [x]Normal []Flat []Agitated []Depressed []Anxious []Calm []Sedated []NAD Select Labs within last 24 hours- BMP: Recent Labs 02/02/24 0000 02/03/24 0458 02/04/24 0223 NA 138 140 139 K 3.7 3.1* 3.0* CL 103 104 99 CO2 32* 33* 35* BUN 23* 26* 23* CREATININE 0.58 0.61 0.54 CALCIUM 8.7 8.9 8.9 LFTs:No results for input(s): AST , ALT , PROT , ALBUMIN , BILITOT , BILIRUBINU , ALKPHOS , LIPASE in the last 72 hours. Glucose: Recent Labs 02/02/24 0000 02/03/24 0458 02/04/24 0223 GLUCOSE 78 97 99 Procal: No results for input(s): PROCAL in the last 72 hours. CBC: Recent Labs 02/02/24 0000 02/02/24 0527 02/03/248 02/04/243 WBC 12.3* -- 9.4 11.3* HGB 8.8* < > 9.8 9.1* 9.4* HCT 28.6* -- 29.7* 30.2* PLT 140 -- 152 182 MCV 88.5 -- 87.1 85.1 RDW 14.7 -- 14.6 14.4 < > = values in this interval not displayed. ABGs: Recent Labs 02/02/24 0502/02/2482102/03/24457 [id number] Bi-PAP Other (Add Comment) Bi-PAP Lactic Acid: No results for input(s): LACTATE in the last 72 hours. INR: No results for input(s): INR in the last 72 hours. Cardiac Injury Profile: No results for input(s): CKTOTAL , CKMB , TROPONINI in the last 72 hours. Labs in Last 3 months: Lab Results Component Value Date TSH 1.148 01/29/2024 VITD25 32 01/29/2024 Microbiology- Urine Cx: Lab Results Component Value Date URINECX 07/29/2022 Insignificant growth based on current clinical guidelines Blood Cx: Lab Results Component Value Date BLOODCX No growth at 5 days 01/28/2024 Sputum Cx: Lab Results Component Value Date RESPCULT Few respiratory ailyn present. 01/28/2024 RESPCULT Moderate Pseudomonas aeruginosa (A) 01/28/2024 Gram Stain: Lab Results Component Value Date LABGRAM (A) 01/28/2024 Moderate Polymorphonuclear leukocytes per low power field LABGRAM Few Epithelial cells per low power field (A) 01/28/2024 LABGRAM Few Gram positive cocci (A) 01/28/2024 LABGRAM Few Gram positive bacilli (A) 01/28/2024 LABGRAM Few Gram negative bacilli (A) 01/28/2024 PNA PCR: Lab Results Component Value Date HUMANMETAPNE Not Detected 01/28/2024 COVID19: No results found for: COVID19 Legionella Ag: Lab Results Component Value Date LEGIONELLAPN Not Detected 01/28/2024 Strep Ag: No results for input(s): STREPPNEUMO in the last 72 hours. Imaging- NA Assessment and Plan: Principal Problem: Status epilepticus (CMS/HCC) ([facility]) Assessment: Acute on chronic hypoxic and hypercapnic respiratory failure 2/2 polymicrobial LRTI and AECOPD Agitation, acute encephalopathy- resolved Possible seizure, most likely shaking 2/2 hypercarbia End stage COPD Hx stroke, Hx traumatic SDH Previous EtOH abuse Normocytic anemia Anxiety/depression Noncompliance with medical management Hypokalemia Plan: NIV nightly VBG Improved to bring in home machine today (possibly Trilogy at night) Vancomycin and Cefepime for HAP discontinued today Continue budesonide nebs daily, Duo-Nebs TID, Prednisone taper Continue Cymbalta for anxiety/depression Palliative care following Ongoing GOC with family, currently full code Potassium repleted GI Prophylaxis: Pepcid IV DVT Prophylaxis: Lovenox 40 q 24hr - creatinine clearance >30 Disposition: Remain in ICU Status Critical Care Time: Total critical care time caring for this patient with life threatening, unstable organ failure, including direct patient contact, management of life support systems, review of data including imaging and labs, discussions with other team members and physicians, excluding procedures. Associated attestation - Mildred Villafuerte DO - 02/04/2024 7:16 PM EDT I have personally performed a [id number] diagnostic evaluation on this patient on date of service 02/04/24. History, labs, imaging studies, and electronic medical record have been reviewed by me. This note documented by the [x]warehouse general laborer []BACILIO reflects my history, exam, and medical decision making. I have reviewed and agree with the care plan. Changes were made in the orders as necessary. ROS documentation was reviewed and negative unless otherwise stated in HPI. Assessment: -acute on chronic hypoxic and hypercapnic respiratory failure-2/2 polymicrobial LRTI and AECOPD -states at baseline she wears Trilogy at night (though historically noncompliant) -agitation, acute encephalopathy-resolved -possible seizure-likely not a seizure but myoclonic jerking from elevated C02 -end stage COPD -prior stroke, prior traumatic SDH -previous EtOH abuse -normocytic anemia -anxiety/depression -noncompliance -hypokalemia Plan: -pt only wore NIV a few hours overnight 2/2 anxiety, morning VBG again not entirely compensated (.). Family brought home machine today, appears to be an AutoBipap (AVAPS type setting). Will trial patient's home machine tonight. Ordered prn hydroxyzine to help with anxiety -stop Vanc/Cefepime, completes course today for HAP -cont steroids, nebs, budesonide nebs. Start PO steroid wean -lasix x1 again today -cont Cymbalta for anxiety/depression-->increase dose to 30 mg/day -palliative care following. Ongoing GOC with patient/family. Currently full code -potassium repleted Total critical care time for this patient with life-threatening unstable organ failure, including direct patient contact, management of life support systems, review of data including imaging and labs, and discussions with other team members and physicians at least 33 minutes so far today, excluding procedures. ICU Progress Note Name: Luiza May : 1955(68 y.o.) Date: 02/03/24 Team: MICU Attending: Christo Subjective: Hospital Summary: 68 y/o F with PMH advanced COPD s/p trach from recent admission to [facility], presented earlier today to [facility] with possible seizure. Her family called EMS when the pt had a shaking episode. A+Ox2 per EMS on arrival and pt was brought to the ER. The ER assessed and sent her home. Later in the day around 1400, the pt had another episode of shaking and was brought back again. At [facility] ED, she had a negative CTA/H and CXR. Unknown seizure history, most recent outpt notes do not have her on AEDs any longer. Family is concerned for increased delirium, primarily when she is non-compliant with her bipap. Interval Events: No acute events overnight. Patient worse NIV overnight, had no issues with tolerating it. Patient states today is a good day. Denies CP, SOB. States her breathing is at baseline. No N/V. Appetite good. No new complaints today. Still not able/ready to discuss DNR status. Scheduled Meds:budesonide, 0.5 mg, Nebulization, Daily cefepime, 2,000 mg, IntraVENous, q8h DULoxetine, 20 mg, Oral, Daily enoxaparin, 40 mg, SubCUTAneous, Daily furosemide, 20 mg, IntraVENous, Once ipratropium-albuterol, 3 mL, Nebulization, TID melatonin, 3 mg, Oral, Nightly methylPREDNISolone sod suc (PF), 40 mg, IntraVENous, q24h potassium chloride, 40 mEq, Oral, Once sodium chloride 0.9%, 5-40 mL, IntraCATHeter, q8h vancomycin, 1,750 mg, IntraVENous, q24h ROS: complete ROS performed and is negative except for above in interval events Objective: Last Vitals: BP MAP 142/75 (02/03/24 1200) 96 (02/03/24 1200) Arterial BP MAP Temp 36.3 C (97.3 F) (02/03/24 1200) Pulse 93 (02/03/24 1254) Resp 16 (02/03/24 1254) SpO2 97 % (02/03/24 1254) Weight 62.5 kg (137 lb 12.6 oz) (02/03/24 0606) BMI Body mass index is 24.41 kg/m . I/O: 02/01 0700 - 02/02 0659 In: 1350.5 [P.O.:480; I.V.:870.5] Out: 1075 [Urine:1075] Ventilator: Resp Rate (Set): 12 Vt (Set, mL): 400 mL FiO2 (%): 60 % PEEP/CPAP (cm H2O): 8 cm H20 Inspiratory Time (sec): 0.85 sec Oxygen Delivery: O2 Flow Rate (L/min): 10 L/min Invasive Lines / Tubes / Drains: CVC Triple Lumen 01/29/24 Non-tunneled Right Internal jugular (Active) Number of days: 4 Urethral Catheter Straight-tip (Active) Number of days: 4 Surgical Airway Shiley 6 (Active) Number of days: Central Line Indication: Inadequate peripheral access despite documented ultrasound attempts AND unable to place extended dwell PIV Soliman Indications: Patient no longer meets indications for a Soliman catheter. Will place order to discontinue. Restraints: Restraints Non-Violent Or Non-Self Destructive Jan 29, 2024 10:49 Pm Edt NA - patient is not restrained. Wounds: Wound/Incision 10/03/23 Other (comment) Perineum (Active) Date First Assessed: 10/03/23 Primary Wound Type: Other (comment) Location: Perineum Wound Description (Comments): Incontinence-related dermatitis Non-staged Wound Description: Not applicable Wound/Incision 10/12/23 Skin Tear Forearm Anterior;Left (Active) Date First Assessed/Time First Assessed: 10/12/23 0600 Primary Wound Type: (c) Skin Tear Location: Forearm Wound Location Orientation: Anterior;Left Constitutional: General Appearance []WDWN []Obese [x]Cachectic []Thin [x]Ill Eyes: Inspection of Pupils/Irises Pupils round and react: []Yes []No Sclera: []Icteric []Non-Icteric Inspection of Conjunctiva/Lids Conjunctiva: []Injected []Non-Injected Lids: [x]Intact []Lesion Present ENT/Mouth: External Inspection of ears/nose [x] Normal [] Scar/Lesion/Mass Inspection of teeth/lips/gums Dentition: [][place] Teeth []Dentures Lips/Gums: []Intact []Lesion Present Mucosa: [x]Celada [x]Moist []Dry Neck: External Appearance Overall Appearance: []Normal []Lesion/Mass/Crepitus Present Trachea midline: [x]Yes []No Thyroid []Normal []Enlarged []Tender []Mass []Absent Respiratory: Respiratory effort [x]Labored []Non-Labored [] Mechanically-Ventilated Auscultation []Clear []Crackles [x]Wheezes [x]Rhonchi Cardiovascular: Auscultation Rate: [x]Regular []Irregular []Tachycardia []Bradycardia Rhythm: [x]Regular []Irregular Murmur: []Present []Absent Extremities Peripheral Edema: []Present [x]Absent Varicosities: []Present []Absent Gastrointestinal: Abdomen Palpation: [x]Soft []Firm []Tender [x]Non-Tender []Distended []Non-distended Mass: []Present []Absent Bowel Sounds: [x]Present []Absent Hernia: []Present []Absent Liver/Spleen: []Hepatosplenomegaly []Organomegaly Absent Musculoskeletal: Inspection of Digits and Nails Cyanosis: []Present [x]Absent Clubbing: []Present [x]Absent Ischemia: []Present []Absent Infection: []Present []Absent Extremities REGALADO Equally: ([x]RUE [x]RLE [x]LUE [x]LLE) Strength/Tone: Intact and Normal ([]RUE []RLE []LUE []LLE) Skin: Inspection [x]Normal []Rash []Lesion []Ulcer Palpation [x]Warm []Cool []Dry []Clammy []Nodules []Induration []Skin-tightening Cap-Refill: [x] <3 sec [] >3 seconds (delayed) Neurologic: GCS EYE: 4 - Opens spontaneously GCS MOTOR: 6 - Obeys commands for movement GCS VERBAL: 5 - Oriented to person, place, time Total GCS: 15 [] Sensation grossly intact Psych: Mental Status Alert: [x]Yes [] No Oriented: []x0 []X1 []X2 [x]x3 Mood/Affect [x]Normal []Flat []Agitated []Depressed []Anxious [x]Calm []Sedated [x]NAD Select Labs within last 24 hours- BMP: Recent Labs 02/01/2452302/02/24 0000 02/03/24 0458 NA 141 138 140 K 3.5 3.7 3.1* CL 106 103 104 CO2 32* 32* 33* BUN 21* 23* 26* CREATININE 0.59 0.58 0.61 CALCIUM 9.3 8.7 8.9 LFTs:No results for input(s): AST , ALT , PROT , ALBUMIN , BILITOT , BILIRUBINU , ALKPHOS , LIPASE in the last 72 hours. Glucose: Recent Labs 02/01/2452302/02/24 0000 02/03/24 0458 GLUCOSE 104* 78 97 Procal: No results for input(s): PROCAL in the last 72 hours. CBC: Recent Labs 02/01/2452302/02/24 0000 02/02/24 0527 02/02/24 0802/03/24 0458 WBC 12.4* 12.3* -- -- 9.4 HGB 9.2 9.3* 8.8* < > 10.2 9.8 9.1* HCT 30.5* 28.6* -- -- 29.7* PLT 119* 140 -- -- 152 MCV 88.7 88.5 -- -- 87.1 RDW 14.9 14.7 -- -- 14.6 < > = values in this interval not displayed. ABGs: Recent Labs 02/02/2452602/02/2482102/03/24 0458 O1LTSTNS Bi-PAP Other (Add Comment) Bi-PAP Lactic Acid: No results for input(s): LACTATE in the last 72 hours. INR: No results for input(s): INR in the last 72 hours. Cardiac Injury Profile: No results for input(s): CKTOTAL , CKMB , TROPONINI in the last 72 hours. Labs in Last 3 months: Lab Results Component Value Date TSH 1.148 01/29/2024 VITD25 32 01/29/2024 Microbiology- Urine Cx: Lab Results Component Value Date URINECX 07/29/2022 Insignificant growth based on current clinical guidelines Blood Cx: Lab Results Component Value Date BLOODCX No growth at 5 days 01/28/2024 Sputum Cx: Lab Results Component Value Date RESPCULT Few respiratory ailyn present. 01/28/2024 RESPCULT Moderate Pseudomonas aeruginosa (A) 01/28/2024 Gram Stain: Lab Results Component Value Date LABGRAM (A) 01/28/2024 Moderate Polymorphonuclear leukocytes per low power field LABGRAM Few Epithelial cells per low power field (A) 01/28/2024 LABGRAM Few Gram positive cocci (A) 01/28/2024 LABGRAM Few Gram positive bacilli (A) 01/28/2024 LABGRAM Few Gram negative bacilli (A) 01/28/2024 PNA PCR: Lab Results Component Value Date HUMANMETAPNE Not Detected 01/28/2024 COVID19: No results found for: COVID19 Legionella Ag: Lab Results Component Value Date LEGIONELLAPN Not Detected 01/28/2024 Strep Ag: No results for input(s): STREPPNEUMO in the last 72 hours. Imaging- no significant change from prior studies Assessment and Plan: Principal Problem: Status epilepticus (CMS/HCC) ([facility]) Assessment: -acute on chronic hypoxic and hypercapnic respiratory failure-2/2 polymicrobial LRTI and AECOPD -states at baseline she wears Trilogy at night (though historically noncompliant) -agitation, acute encephalopathy-resolved -possible seizure-likely not a seizure but myoclonic jerking from elevated C02 -end stage COPD -prior stroke, prior traumatic SDH -previous EtOH abuse -normocytic anemia -anxiety/depression -noncompliance -hypokalemia Plan: -pt wore NIV overnight, morning VBG not entirely compensated but close. to bring in home machine today. Will adjust settings accordingly. Cont nightly NIV (and with naps), repeat VBG ordered for the morning -cont Vanc/Cefepime (course planned through 02/03) for HAP -cont steroids, nebs, budesonide nebs. Today is day 5 of solumedrol. Transition to PO steroids and wean. -lasix x1 today -cont Cymbalta for anxiety/depression -palliative care following. Ongoing GOC with patient/family. Currently full code -potassium repleted GI Prophylaxis: Pepcid IV DVT Prophylaxis: Lovenox 40 q 24hr - creatinine clearance >30 Disposition: Remain in ICU Status Critical Care Time: 40 minutes Total critical care time caring for this patient with life threatening, unstable organ failure, including direct patient contact, management of life support systems, review of data including imaging and labs, discussions with other team members and physicians, excluding procedures. Pharmacy to Dose Vancomycin - Progress Note Lab Results Component Value Date CREATININE 0.61 02/03/2024 BUN 26 (H) 02/03/2024 WBC 9.4 02/03/2024 VANCOTROUGH 20.7 (H) 02/02/2024 Doses, serum creatinine, and vancomycin levels interfaced automatically to [employer] and data has been analyzed and interpreted. Infectious Diagnosis: pneumonia Est CrCl: 87 mL/min (Cockcroft-Gault) Assessment: Current regimen vancomycin 1750 mg every 12 hours Predicted AUC = 500 mg/L*hr (goal 400-600 mg/L*hr) PAUC = 98% (probability that AUC is >400 mg/L*hr) Pconc = 0% (probability that Ctrough is above 20 mcg/mL (toxicity)) Plan: Renal fxn stable. Predicted AUC therapeutic. Continue current vancomycin regimen. Will follow and adjust regimen as indicated. DATE: 02/03/24 TIME: 11:47 AM Nelson Nicole RPh Clinical Pharmacist Available via Secure Chat Images from the original note were not included. PHYSICAL THERAPY [facility] Initial Evaluation Name/MRN: Luiza May ([id number]) Evaluation Date: 02/03/2024 Date of : 1955 Admission Date: 01/28/2024 6:42 PM Age: 68 y.o. Room/Bed: T1-114/T1-114 A Discharge Recommendation: Continue to assess pending progress, IP Rehab Assessment IMPRESSION:Pt admitted from [facility] ED for seizures. Pt was also hypoxic upon admission. Pt is on 3L O2 at home. Pt arrived with capped trach but reportedly it was planned for it to potentially be removed. Pt presents with decreased endurance and activity tolerance. Pt is currently functioning below her baseline level and would benefit from continued therapy services prior to returning home. Pt could tolerate 15 hrs of rehab a week. Recommend IPR at this time. Admitting Diagnosis: status epilepticus Prognosis: good Performance Deficits /Impairments: Decreased Endurance Decision Making: Low Complexity Subjective Pleasant and agreeable. Pain: 0-10 pain scale: 7/10 Location: BLE Past Medical History: Past Medical History: Diagnosis Date Asthma CAD (coronary artery disease) Cerebral artery occlusion with cerebral infarction (HCC) COPD (chronic obstructive pulmonary disease) (HCC) Hypertension Past Surgical History: Past Surgical History: Procedure Laterality Date APPENDECTOMY CHOLECYSTECTOMY COLONOSCOPY COLONOSCOPY CT CHEST ANGIOGRAM W AND/OR WO IV CONTRAST 07/26/2022 CT CHEST ANGIOGRAM W AND/OR WO IV CONTRAST 07/26/[address] [facility] [address] IMAGING Admission Diagnosis: Patient Active Problem List Diagnosis Date Noted Status epilepticus (CMS/HCC) ([facility]) 01/28/2024 Seizure ([facility]) 09/26/2023 Severe malnutrition (CMS/HCC) ([facility]) 07/26/2022 COPD exacerbation ([facility]) 07/25/2022 Acute respiratory failure with hypoxia and hypercapnia ([facility]) 09/26/2023 Hemorrhage of gastrointestinal tract 04/17/2017 Cerebrovascular accident (CVA) due to embolism of cerebral artery [facility] HEALTH CARE) 02/12/2017 Acute deep vein thrombosis (DVT) of distal vein of right lower extremity ([facility]) 02/12/2017 Encephalopathy 02/12/2017 Posterior reversible encephalopathy syndrome (PRES) 02/12/2017 Alcohol abuse 02/10/2017 NSTEMI (non-ST elevated myocardial infarction) ([facility]) 02/10/2017 History of hematemesis 02/10/2017 Medical Precautions: No active isolations Proper PPE donned/doffed in accordance with facility standards. Fall Risk: Garcia Fall Risk Score: 75 (High Risk) Precautions/Restrictions: Lines/Drains/Airways: trach, oxygen, SpO2, telemetry, catheter, BP Fall Precautions Family/Caregiver Present: none Overall Cognitive Status: WNL Overall Orientation Status: Oriented x4 Vision: no visual deficits detected Hearing: normal Social/Functional History Patient admitted from home. Lives With: Significant Other Type of Home: single family home Home Layout: Single Level Home Home Access: Stairs to Enter without Rails (# of stairs: 1) Bathroom Shower/Tub: Tub/Shower Combo and Grab Bars Toilet: Standard Home Equipment: front wheeled walker, wheelchair - manual, and shower seat Homemaking Responsibilities: Independent Receives Help From: Significant other Active Couture Alterations Dressmaker: No Prior Level of Function ADL Assistance: Independent Ambulation Assistance: Independent Transfer Assistance: Independent Objective Lower Extremity Assessment AROM: WFL Strength: Exceptions: BLE grossly 3+/5 seen through functional mobility. Balance: Balance During Session: Posture: fair Sitting - Static: Independent Sitting - Dynamic: Modified Independent Standing - Static: SBA Standing - Dynamic: SBA Sensation: WFL Bed Mobility: not assessed this session. Transfers Sit to stand: Min Assist Stand to sit: Min Assist From chair x1 VC for hand placement Ambulation Ambulation 1 Assistive device(s) used: Rodrigoie Assist level: Min Assist Distance (ft): 30 Quality of gait: slow matt, postural sway, decreased foot clearance. Min A to maneuver damien Outcome Measures AM-PAC How much HELP from another person do you currently need Turning from your back to your side while in a flat bed without using bedrails?: A Little Moving from lying on your back to sitting on the side of a flat bed without using bedrails?: A Little Moving to and from a bed to a chair (including a wheelchair)?: A Little Standing up from a chair using your arms (wheelchair or bedside chair)?: A Little Walking in a hospital room?: A Little Stair climbing assessed?: No AM-PAC Inpatient Mobility Raw Score (No Stairs) : 15 JH-HLM JH-HLM Score: Walked 25 ft or more (i.e. walked outside of room) Plan Pt would benefit from skilled acute PT services to address Strengthening, ROM, Gait Training, Balance Training, Self-Care/ADL Training, Functional Mobility Training, Endurance Training, Safety Education and Training, and Pain Management. Frequency: 3x/week for 4 weeks Barriers: Decreased endurance Safety/Education Safety Safety Devices in place: call light within reach, left in chair, and nurse notified Restraints: N/A Education Education Given To: patient Education Provided: PT Role, Plan of Care, Transfer Training, Energy Conservation, Discharge Recommendations, and Benefits of Increasing Activity Education Method: Verbal Barriers to Learning: None Education Outcome: Verbalized Understanding Goals Patient Stated Goal: to go home Encounter Problems Encounter Problems (Active) Mobility Patient will ambulate 100 feet with modified independence and least restrictive device in order to improve safety and independence with mobility. Start: 02/03/24 Expected End: 03/02/24 Transfers Patient will perform bed mobility with modified independence in order to improve independence and prepare for out of bed mobility. Start: 02/03/24 Expected End: 03/02/24 Patient will complete sit to stand transfer with modified independence to least restrictive device in order to improve safety and prepare for out of bed mobility. Start: 02/03/24 Expected End: 03/02/24 Therapy Time Individual Co-treatment Time In 920 Time Out 0939 Minutes 18 Roro Mensah PT Patient's Physical Therapy Plan of Care supervision is transferred to a [facility] Services Physical Therapist. Goals and/or treatment plan was established in collaboration with patient/family/other representatives. Images from the original note were not included. Speech-Language Pathology SPEECH LANGUAGE PATHOLOGY [facility] Bedside Swallow Evaluation Patient Name: Luiza May Evaluation Date: 02/02/2024 Date of : 1955 Admission Date: 01/28/2024 6:42 PM Age: 68 y.o. Room/Bed: T1-114/T1-114 A IMPRESSION: No s/s oropharyngeal dysphagia. No overt clinical s/s pulmonary compromise with PO. Risk factors for aspiration include trach in place. RECOMMENDATION: Recommend Regular solids and Thin liquids and meds as tolerated and the following precautions: - Upright positioning for all PO intake - Slow rate of intake - Small bites/sips Dysphagia NOMS: Level 7: The individual's ability to eat independently is not limited by swallow function. Swallowing would be safe and efficient across all consistencies. Compensatory strategies are effectively used when needed. No skilled acute BELT REPAIRER indicated at this time. Please reconsult should changes occur. Subjective Patient alert and cooperative. Seen upright in bed. Answers all basic questions with clear, strong vocal quality. Follows all basic commands. No visitors at bedside. Spoke with FINESSE Naidu who cleared pt to be evaluated. Dysphagia History: Retrospective chart review revealed a history of BELT REPAIRER services as follows: Modified Barium Swallow Study on 08/04/22: Pt demonstrated mild oral deficits related to decreased oral transit and occasional spillage to vallecula prior to onset of swallowing. Oral residuals of trace to mild amount across all textures that intermittently spill to vallecula post swallow. Residuals clear mostly with a reswallow. No airway compromise despite inability to tolerate PMV. Recommend Regular diet with thin liquids as tolerated. Single small bites and drinks. Sit most upright, up to chair as able for po. Reswallow every few bites. Baseline Diet: regular Current Diet: Dietary Orders (From admission, onward) Start Ordered 02/02/24 1104 Adult diet Regular Diet effective now Question: Diet type Answer: Regular 07/31/24 1103 Tube Feeding: no Tracheostomy: yes, PMV in place Recent Chest Xray/CT of Chest: XR chest 1 view 02/02/2024 Impression Lines, tubes, and devices: Right internal jugular approached central venous catheter with tip in the distal SVC. Tracheostomy tube is in again noted projecting over the trachea. Lungs and pleura: Mild left basilar haziness raises the possibility of a small layering effusion. Streaky left basilar opacities opacities, likely atelectasis. No sizable right pleural effusion. No sizable pneumothorax. Cardiomediastinal silhouette: Stable cardiomediastinal silhouette. Other: Bony thorax appears grossly unchanged. Report Dictated on Electronically Signed By: Howie Clarke MD Electronically Signed Date/Time: 02/02/2024 8:25 AM EDT Oxygen: Oxygen Therapy: Supplemental oxygen O2 Delivery Method: Trach mask O2 Flow Rate (L/min): 10 L/min Past Medical History: Past Medical History: Diagnosis Date Asthma CAD (coronary artery disease) Cerebral artery occlusion with cerebral infarction (HCC) COPD (chronic obstructive pulmonary disease) ([facility]) Hypertension Past Surgical History: Past Surgical History: Procedure Laterality Date APPENDECTOMY CHOLECYSTECTOMY COLONOSCOPY COLONOSCOPY CT CHEST ANGIOGRAM W AND/OR WO IV CONTRAST 07/26/2022 CT CHEST ANGIOGRAM W AND/OR WO IV CONTRAST 07/26/[address] [facility] [address] IMAGING Admission Diagnosis: Patient Active Problem List Diagnosis Date Noted Status epilepticus (CMS/HCC) ([facility]) 01/28/2024 Seizure ([facility]) 09/26/2023 Severe malnutrition (CMS/HCC) ([facility]) 07/26/2022 COPD exacerbation ([facility]) 07/25/2022 Acute respiratory failure with hypoxia and hypercapnia ([facility]) 09/26/2023 Hemorrhage of gastrointestinal tract 04/17/2017 Cerebrovascular accident (CVA) due to embolism of cerebral artery ([facility]) 02/12/2017 Acute deep vein thrombosis (DVT) of distal vein of right lower extremity ([facility]) 02/12/2017 Encephalopathy 02/12/2017 Posterior reversible encephalopathy syndrome (PRES) 02/12/2017 Alcohol abuse 02/10/2017 NSTEMI (non-ST elevated myocardial infarction) ([facility]) 02/10/2017 History of hematemesis 02/10/2017 History of Present Illness: 68yoF with COPD/seizures and trach from recent admission to [facility], presented earlier today to [facility] with possible seizure. Her family called EMS when the pt had a shaking episode. A+Ox2 per EMS on arrival and pt was brought to the ER. This was around 1000. The ER assessed and sent her home. Later in the day around 1400, the pt had another episode of shaking and was brought back again. At [facility], she has had a negative CTA head. Negative CXR. No leukocytosis but L shift is present. INR of 1. Creat 0.93. No LA. Seizure history is very nebulous indeed. Most recent outpt notes have her off AED entirely. Family reports that she gets more delirious lately - they see this when she is non-complaint with her BIPAP. Daughter notes that she likely has not been using her mask. On exam, she is shaking her feet and arms with her eyes closed. When awoken by grabbing her foot, answers simple questions appropriately. Not seizing but significant hypercapnia is probable. Patient Complaint: None stated at this time. Pain: Pt denies any current pain. PPE Worn: gloves Objective Bedside swallow eval completed. Oral Motor Mechanism Adequate structure, strength, and ROM in lingual, labial, and buccal musculature. Timely volitional swallow. Adequate dentition. Oral Hygiene: moist, clean Swallowing Examination PO Trials - thin liquid, (cup edge, straw, sequential swallows) - puree, (teaspoon) - soft and bite sized solids - regular solids Oral Phase Patient presents with adequate oral receipt of each bolus. There is no anterior bolus loss. There is appropriate bolus containment for each tested texture in the oral cavity. Mastication appeared complete, organized, and timely. Oral transit time appears WFL. There is no oral residue. Pharyngeal Phase Hyolaryngeal excursion clinically appears adequate and timely per palpation. 1-2 swallows palpated per bolus, likely indicative of adequate pharyngeal clearance. No overt clinical s/s airway penetration as evidenced by no cough, no throat clear, and no change in vocal quality. Education Education Given: safety, swallowing strategies, diet recommendations Given To: patient and RN Response: verbalizes understanding Goals Patient Stated Goal: To have solid food. Therapy Time BELT REPAIRER Individual Minutes Time In: 1025 Time Out: 1040 Minutes: 15 Juliane Rosenthal ICU Progress Note Name: Luiza May : 1955(68 y.o.) Date: 02/02/24 Team: MICU Attending: DO Christo Subjective: Hospital Summary: 68yoF with COPD/seizures and trach from recent admission to [facility], presented earlier today to [facility] with possible seizure. Her family called EMS when the pt had a shaking episode. A+Ox2 per EMS on arrival and pt was brought to the ER. This was around 1000. The ER assessed and sent her home. Later in the day around 1400, the pt had another episode of shaking and was brought back again. At [facility] ED, she had a negative CTA/H and CXR. Unknown seizure history, most recent outpt notes do not have her on AEDs any longer. Family is concerned for increased delirium, primarily when she is non-compliant with her bipap. Interval Events: Failed auto bipap overnight with pCO2 72. Repeat this AM on trach-mask 60.3. Discussed with patient yesterday after weaning from precedex; she does not follow a electric bath attendant. She wears a bipap each night at home but unknowingly takes it off during the night. Scheduled Meds:budesonide, 0.5 mg, Nebulization, Daily cefepime, 2,000 mg, IntraVENous, q8h DULoxetine, 20 mg, Oral, Daily enoxaparin, 40 mg, SubCUTAneous, Daily ipratropium-albuterol, 3 mL, Nebulization, TID melatonin, 3 mg, Oral, Nightly methylPREDNISolone sod suc (PF), 40 mg, IntraVENous, q24h mupirocin, 1 Application, Nasal, BID sodium chloride 0.9%, 5-40 mL, IntraCATHeter, q8h vancomycin, 1,750 mg, IntraVENous, q24h Continuous Infusions: Objective: Last Vitals: BP MAP 117/65 (02/02/24 0600) 79 (02/02/24 0600) Arterial BP MAP Temp 36.6 C (97.8 F) (02/02/24 0400) Pulse 90 (02/02/24 0753) Resp 22 (02/02/24 0753) SpO2 96 % (02/02/24 0753) Weight 63.1 kg (139 lb 1.8 oz) (02/02/24 0552) BMI Body mass index is 24.64 kg/m . I/O: 01/31 07 - 02/01 06 In: 1143 [I.V.:1143] Out: 1400 [Urine:1400] Ventilator: Resp Rate (Set): 16 Vt (Set, mL): 400 mL FiO2 (%): 40 % PEEP/CPAP (cm H2O): 8 cm H20 Inspiratory Time (sec): 0.9 sec Oxygen Delivery: O2 Flow Rate (L/min): 10 L/min Invasive Lines / Tubes / Drains: CVC Triple Lumen 01/29/24 Non-tunneled Right Internal jugular (Active) Number of days: 1 Peripheral IV 01/28/24 Anterior;Right Wrist (Active) Number of days: 3 Urethral Catheter Straight-tip (Active) Number of days: 1 Surgical Airway Shiley 6 (Active) Number of days: Central Line Indication: Vesicant infusions/medications at high risk of causing extravasation Soliman Indications: Hourly I&Os (Critical Care ONLY) Restraints: Restraints Non-Violent Or Non-Self Destructive Jan 29, 2024 10:49 Pm Edt Wounds: Wound/Incision 10/03/23 Other (comment) Perineum (Active) Date First Assessed: 10/03/23 Primary Wound Type: Other (comment) Location: Perineum Wound Description (Comments): Incontinence-related dermatitis Non-staged Wound Description: Not applicable Wound/Incision 10/12/23 Skin Tear Forearm Anterior;Left (Active) Date First Assessed/Time First Assessed: 10/12/23 0600 Primary Wound Type: (c) Skin Tear Location: Forearm Wound Location Orientation: Anterior;Left Constitutional: General Appearance []WDWN []Obese []Cachectic []Thin [x]Chronically Ill Eyes: Inspection of Pupils/Irises Pupils round and react: [x]Yes []No Sclera: []Icteric [x]Non-Icteric Inspection of Conjunctiva/Lids Conjunctiva: []Injected [x]Non-Injected Lids: [x]Intact []Lesion Present ENT/Mouth: External Inspection of ears/nose [x] Normal [] Scar/Lesion/Mass Inspection of teeth/lips/gums Dentition: [][place] Teeth []Dentures Lips/Gums: []Intact []Lesion Present Mucosa: [][place] []Moist []Dry Neck: External Appearance Overall Appearance: [x]Normal []Lesion/Mass/Crepitus Present Trachea midline: [x]Yes []No Thyroid []Normal []Enlarged []Tender []Mass []Absent Respiratory: Respiratory effort []Labored []Non-Labored [x] Mechanically-Ventilated Auscultation [x]Clear []Crackles []Wheezes []Rhonchi Cardiovascular: Auscultation Rate: [x]Regular []Irregular []Tachycardia []Bradycardia Rhythm: [x]Regular []Irregular Murmur: []Present []Absent Extremities Peripheral Edema: []Present [x]Absent Varicosities: []Present [x]Absent Gastrointestinal: Abdomen Palpation: [x]Soft []Firm []Tender [x]Non-Tender []Distended [x]Non-distended Mass: []Present []Absent Bowel Sounds: []Present []Absent Hernia: []Present []Absent Liver/Spleen: []Hepatosplenomegaly []Organomegaly Absent Musculoskeletal: Inspection of Digits and Nails Cyanosis: []Present [x]Absent Clubbing: []Present []Absent Ischemia: []Present [x]Absent Infection: []Present []Absent Extremities REGALADO Equally: Except ([]RUE []RLE []LUE []LLE) Strength/Tone: Intact and Normal ([x]RUE [x]RLE [x]LUE [x]LLE) Skin: Inspection [x]Normal []Rash []Lesion []Ulcer Palpation [x]Warm []Cool [x]Dry []Clammy []Nodules []Induration []Skin-tightening Cap-Refill: [] <3 sec [] >3 seconds (delayed) Neurologic: GCS EYE: 4 - Opens spontaneously GCS MOTOR: 6 - Obeys commands for movement GCS VERBAL: 5 - Oriented to person, place, time Total GCS: 15 [] Sensation grossly intact Psych: Mental Status Alert: []Yes [] No Oriented: []x0 []X1 [x]X2 []x3 Mood/Affect []Normal []Flat []Agitated []Depressed []Anxious []Calm []Sedated [x]NAD [facility] within last 24 hours- BMP: Recent Labs 01/31/24 0516 02/01/24 0524 02/02/24 0000 NA 141 141 138 K 3.8 3.5 3.7 CL 103 106 103 CO2 34* 32* 32* BUN 14 21* 23* CREATININE 0.52 0.59 0.58 CALCIUM 8.8 9.3 8.7 LFTs: No results for input(s): AST , ALT , PROT , ALBUMIN , BILITOT , BILIRUBINU , ALKPHOS , LIPASE in the last 72 hours. Glucose: Recent Labs 01/30/24 1459 01/31/24 0516 02/01/24 0524 02/02/24 0000 GLUCOSE -- 111* 104* 78 POCGLU 239* -- -- -- Procal: No results for input(s): PROCAL in the last 72 hours. CBC: Recent Labs 01/31/24 0516 01/31/24 1150 02/01/24 0524 02/02/24 0000 02/02/24 0502/02/24 0822 WBC 11.5* -- 12.4* 12.3* -- -- HGB 9.8 9.1* < > 9.2 9.3* 8.8* 9.8 10.2 HCT 30.7* -- 30.5* 28.6* -- -- PLT 159 -- 119* 140 -- -- MCV 90.3 -- 88.7 88.5 -- -- RDW 14.6 -- 14.9 14.7 -- -- < > = values in this interval not displayed. ABGs: Recent Labs 02/01/24 0524 02/02/24 0502/02/24 0822 [id number] Vent Bi-PAP Other (Add Comment) Lactic Acid: No results for input(s): LACTATE in the last 72 hours. INR: No results for input(s): INR in the last 72 hours. Cardiac Injury Profile: No results for input(s): CKTOTAL , CKMB , TROPONINI in the last 72 hours. Labs in Last 3 months: Lab Results Component Value Date TSH 1.148 01/29/2024 VITD25 32 01/29/2024 Microbiology- Urine Cx: Lab Results Component Value Date URINECX 07/29/2022 Insignificant growth based on current clinical guidelines Blood Cx: Lab Results Component Value Date BLOODCX No growth at 4 days 01/28/2024 Sputum Cx: Lab Results Component Value Date RESPCULT Few respiratory ailyn present. 01/28/2024 RESPCULT Moderate Pseudomonas aeruginosa (A) 01/28/2024 Gram Stain: Lab Results Component Value Date LABGRAM (A) 01/28/2024 Moderate Polymorphonuclear leukocytes per low power field LABGRAM Few Epithelial cells per low power field (A) 01/28/2024 LABGRAM Few Gram positive cocci (A) 01/28/2024 LABGRAM Few Gram positive bacilli (A) 01/28/2024 LABGRAM Few Gram negative bacilli (A) 01/28/2024 PNA PCR: Lab Results Component Value Date HUMANMETAPNE Not Detected 01/28/2024 COVID19: No results found for: COVID19 Legionella Ag: Lab Results Component Value Date LEGIONELLAPN Not Detected 01/28/2024 Strep Ag: No results for input(s): STREPPNEUMO in the last 72 hours. Imaging- XR chest 1 view Result Date: 01/29/2024 Patient Name: LUIZA MAY : 1955 Exam Date/Time: 01/29/2024 16:26 Procedure: XR CHEST 1 VIEW Ordering Provider: GAXIOLA MATTHEW Reason For Exam: Central Line Clinical History: Central Line Comparison: 01/28/2024 Technique: Single AP radiograph of the chest. Findings: Tracheostomy in adequate position. Right IJ central venous catheter tip in the lower SVC. The cardiomediastinal silhouette and pulmonary vasculature are normal. The lungs and pleural spaces are clear. No sizable pneumothorax. No acute consolidative process. Report Dictated on Electronically Signed By: Jeet Perez DR Electronically Signed Date/Time: 01/29/2024 4:27 PM EDT XR chest 1 view Result Date: 01/28/2024 Patient Name: LUIZA MAY : 1955 Exam Date/Time: 01/28/2024 20:42 Procedure: XR CHEST 1 VIEW Ordering Provider: GAXIOLA MATTHEW Reason For Exam: Dyspnea CHEST CLINICAL INDICATION: Dyspnea TECHNIQUE: AP portable chest COMPARISON: Chest radiograph from 10/07/2023 FINDINGS: SUPPORT DEVICES: Tip of the tracheostomy tube projects over the mid trachea. HEART AND MEDIASTINUM: Stable mild prominence of the cardiac silhouette. LUNGS AND PLEURA: No focal consolidation. Emphysematous changes. No sizable pleural effusion . No pneumothorax is identified. OSSEOUS STRUCTURES: Degenerative change of the spine. No acute cardiopulmonary abnormality. Report Dictated on Electronically Signed By: Saray Rosario MD Electronically Signed Date/Time: 01/28/2024 8:47 PM EDT Assessment and Plan: Principal Problem: Status epilepticus (CMS/HCC) ([facility]) Assessment: Acute on chronic hypoxic and hypercapnic respiratory failure Developing leukocytosis, likely secondary to steroids COPD Hx of prior stroke: bi hemispheric MCA strokes, atrophy and encephalomalacia Hx of traumatic SDH Hx of ETOH abuse Hx of CREST syndrome (per chart) Hx of anxiety/depression Plan: Failed auto bipap overnight, however vbg improved on trach mask this AM 2. Keppra Mi'ed 3. Remain off precedex and other sedative medications as able 4. Home Cymbalta for depression/anxiety 3. PNA PCR w MRSA, Moraxella, and Pseudomonas 4. Procal negative. Bcx NGx4. 5. Vanc/cefepime 6. Speech eval prior to PO intake. 7. Scheduled bronchodilators. 8. 40 mg Solumedrol daily 9. Palliative following; pt to remain full code at this time. GI Prophylaxis: NA DVT Prophylaxis: Lovenox 40 q 24hr - creatinine clearance >30 Disposition: Remain in ICU Status Associated attestation - Mildred Villafuerte DO - 02/02/2024 3:31 PM EDT I have personally performed a [id number] diagnostic evaluation on this patient on date of service 02/02/24. History, labs, imaging studies, and electronic medical record have been reviewed by me. This note documented by the [x]warehouse general laborer []BACILIO reflects my history, exam, and medical decision making. I have reviewed and agree with the care plan. Changes were made in the orders as necessary. ROS documentation was reviewed and negative unless otherwise stated in HPI. Assessment: -acute on chronic hypoxic and hypercapnic respiratory failure-2/2 polymicrobial LRTI and AECOPD -states at baseline she wears Trilogy at night (though historically noncompliant) -agitation, acute encephalopathy-resolved -possible seizure-likely not a seizure but myoclonic jerking from elevated C02 -end stage COPD -prior stroke, prior traumatic SDH -previous EtOH abuse -normocytic anemia -anxiety/depression -noncompliance Plan: -per patient trach has been capped and she wears Trilogy at night (she initially said bipap but upon further talking today it sounds like she actually uses a Trilogy). She does not know any of the settings. She states she has had the machine for several years. Upon review of LTAC records from November 2023, patient was weaned from the ventilator s/p trach placement and then placed on trach cap/supplemental 02. I do not see any documentation of bipap or Trilogy usage. Regardless, overnight patient did not tolerate autobipap well, evidenced by morning VBG showing pH 7.2 and PC02 in the 80s. Will try NIV tonight. If tomorrow's VBG again shows respiratory acidosis, patient may need nightly trach to vent support. Family to bring in patient's home machine so we can further investigate home machine and settings -cont Vanc/Cefepime (course planned through 02/03) for HAP -cont steroids, nebs -started Cymbalta for anxiety/depression yesterday. Continue. -palliative care following. Ongoing GOC with patient/family. Currently full code Total critical care time for this patient with life-threatening unstable organ failure, including direct patient contact, management of life support systems, review of data including imaging and labs, and discussions with other team members and physicians at least 35 minutes so far today, excluding procedures. Pharmacy to Dose Vancomycin - Progress Note Lab Results Component Value Date CREATININE 0.58 02/02/2024 BUN 23 (H) 02/02/2024 WBC 12.3 (H) 02/02/2024 VANCOTROUGH 20.7 (H) 02/02/2024 Doses, serum creatinine, and vancomycin levels interfaced automatically to [employer] and data has been analyzed and interpreted. Infectious Diagnosis: pneumonia Est CrCl: 88 mL/min (Cockcroft-Gault) Assessment: Current regimen vancomycin 1750 mg every 24 hours Predicted AUC = 475 mg/L*hr (goal 400-600 mg/L*hr) PAUC = 93% (probability that AUC is >400 mg/L*hr) Pconc = 0% (probability that Ctrough is above 20 mcg/mL (toxicity)) Plan: Renal fxn stable. Level this AM supports AUC in therapeutic range. Continue current vancomycin regimen. Will continue to follow and adjust as needed. DATE: 02/02/24 TIME: 8:07 AM Nelson Nicole RPh Clinical Pharmacist Available via Secure Chat Images from the original note were not included. Palliative Care Progress Note Chief Complaint: Luiza May is a 68 y.o. female with chief complaint of seizures. Palliative Care will follow peripherally, please contact on-call provider for urgent needs Assessment/Plan Goals of Care - Code status: Full code - NOK/HCPOA: Legal NOK are children. Daughter reports HCPOA completed naming her (Ameena). Daughter planning to bring in copy of HCPOA when able. If unable to locate, may address completing new one here once mentation supports being able to - Own decision maker: Mentation appears to be improving, patient now involved in decision-making, ongoing assessment. Does appear to have capacity today - GO conversation: Goals are focused on living longer. Patient wishing and planning to attempt to be compliant with BiPAP. PAP management outpatient is concerning as patient is not currently established with pulmonology and BiPAP machine is years old -Attempting to mimic home use of BiPAP to achieve stabilization -Patient will need pulmonology follow-up/establishment -Patient agreeable for tracheostomy to remain in place until she can show compliance over time, established with pulmonology, and best set herself up for decannulation -Family was unable to stay for discussion with patient, discussion summary relayed to daughter via phone Acute on Chronic Respiratory Failure - Concern for tracheobronchitis vs pneumonia vs hypercarbia 2/2 BiPAP noncompliance - IV atbx and steroids per primary -Now on trach mask, planning for cap and BiPAP tonight -Patient reports compliance with BiPAP; however, takes off in the middle night unknowingly. Patient does not follow with outpatient pulmonology. Unknown last time BiPAP machine was evaluated or settings were adjusted Seizures Hx CVA/SDH - per documentation, patient no longer on AED at home Altered mentation - likely 2/2 hypercarbia -Daughter reports behaviors consistent with past hospitalizations (patient being very frustrated, requesting to leave, pulling at lines) -A&O x 4 at baseline Palliative Care Encounter -Consulted for goals of care - will continue to follow for ongoing monitoring of progression of Dyspnea and Agitation as well as for appropriateness for hospice care due to Respiratory Failure - Ongoing counseling of patient and family regarding diagnoses of Respiratory Failure, Determining prognosis in serious illness of Respiratory Failure - will continue treatment including n/a Total of 55 minutes spent on this encounter including Chart review, Patient visit and exam, Documentation in EHR, Care coordination, Communicating with primary attending or other consultants, Obtaining and/or reviewing separately obtained history, and Counseling and educating patient/family/caregiver. Discharge planning: Ready for discharge from Palliative Care perspective, no follow-up needed Patient meets criteria for general inpatient hospice care including the following: N/A - Palliative Care Patient Referrals to: None Discussed patient and the plan of care with the other interdisciplinary team (IDT) members of Palliative Care Team, and with Primary Attending, Patient, Family, and Floor Nurse I have discussed the patient's case and plan of care with my collaborating physician Dr Trent Subjective: Subjective/Events - No significant events overnight. Mentation improving. - NAD on exam - A&Ox4 - Patient with no complaints today other than anxiety. No complaint of pain, nausea, vomiting, diarrhea, constipation, SOB. Patient happy to be able to talk again. GOC conversation: Discussed with patient, ICU attending, ICU resident, nurse. Phone call to dtr separately - Reviewed medical update, educated on CO2 retention. Encouraged BiPAP compliance -Patient reports compliant with BiPAP; however, does wake up with it off, takes it off unknowingly in the middle of the night. Patient does not wear it during naps during the day. Patient is not currently established with a electric bath attendant. Has had BiPAP for years now with no recent evaluations or adjustments. -Goals are focused on living longer. Patient is not ready for hospice/end-of-life care and expressed understanding importance of BiPAP compliance to work towards goal -ICU adjusting treatment plan with BiPAP inpatient -Discussed code status. Patient wishing to remain a full code and discuss further with children -Patient does report she is at peace with dying whenever it is her time, has a strong jose g -Phone call to daughter and updated on above conversation HPI: Luiza May is a 68 y.o. female with PMH chronic respiratory failure, Hx CVA, tracheostomy since 07/2022 (planning to decannulate soon?), HFpEF, takotsubo cardiomyopathy, HTN, fall last year with SDH requiring R crani/evacuation, anxiety, ETOH abuse, seizures who presented to [facility] 01/28/2024 from home with concerns of hypoxia and had 2-3 seizures >5 minutes which prompted transfer to [facility]. Patient with trach (possible planning to decannulate from [facility] prior to this admission). Hypoxia improved once placed on NC (did not improve with trach mask). Work-up with respiratory acidosis. Patient admitted to ICU for status epilepticus and further work-up for respiratory failure. Daughter reports non-compliance with BiPAP mask. Ongoing hypoxia requiring trach to vent, tolerated SBT, SIMV orders placed 01/29. Patient continues to require precedex for agitation. Palliative care consulted for goals of care. Goals of care:Live Longer Functional Assessment: PPS: 60%, currently 30% Advance Directives: Full Code Surrogate: Child Prognosis: depends upon goals and unknown Spiritual assessment: No spiritual distress identified Bereavement and grief: Grief Issues Not Identified Canones Symptom Assessment Score Canones Score Pain Score 0 Tiredness Score 0 Nausea Score 0 Depression Score 0 Anxiety Score 5 Drowsiness Score 0 Anorexia Score (0= eating well, 10= not eating) 10 Wellbeing Score (10= worst sense of well-being) 5 Constipation 0 Dyspnea Score (0= no shortness of breath) 0 FLACC Scale (For Pain Assessment of the Non-Verbal Patient) Face: 0- no particular expression Legs: 0- normal position or relaxed Activity: 0-lying quietly, moves easily Cry: 0-no cry Consolability:0-content, relaxed Total Score: 0 Assessed by: patient and provider. Family Meeting: (if discussing Advanced Care Planning, include .ACPDOCUMENTATION) Participants: patient Family meeting was held to discuss:Diagnosis and Prognosis, Goals of Care, Treatment Options, Advanced Care Planning, and Prior Expressed Wishes Advance Care Planning Advanced Care Planning Conversation Pertinent Diagnosis/es: Hypercapnic respiratory failure The patient and/or surrogate consented to a voluntary Advance Care Planning conversation. Luiza May retains capacity for medical decision-making Individuals present included: Patient. Summary of the conversation: Remain full code, continue aggressive measures, live longer Outcome of the conversation: Decision to remain full code and continue all aggressive care Advance Directives were not explained. Conversation focused on goals, values and medical decision-making. This represents a subsequent discussion around advanced care planning. It is appropriate for a repeat discussion of ACP because patient's mentation improved. I spent 20 minutes providing separately identifiable ACP services with the patient and/or surrogate decision maker in a voluntary conversation discussing the patient's goals, values, and preferences as detailed in the note above. GALO Castrejon *Time-based code 86919 for 16-45 minutes. Add-on code 38969 at 46 minutes and each additional 30 minutes. If does not meet time threshold, may code 1123F (code status/ACP and surrogate documented) or 1124F (ACP discussed and documented, but patient unable to decide ACP nor identify surrogate decision maker) Objective: Physical Exam BP 121/66 (BP Location: Right arm, Patient Position: Lying) Pulse 78 Temp 36.7 C (98.1 F) (Temporal) Resp 16 Ht 5' 3 (1.6 m) Wt 138 lb 3.7 oz (62.7 kg) SpO2 98% BMI 24.49 kg/m Physical Exam Vitals and nursing note reviewed. Constitutional: General: She is not in acute distress. Appearance: She is not ill-appearing. HENT: Head: Normocephalic and atraumatic. Nose: No rhinorrhea. Eyes: General: Right eye: No discharge. Left eye: No discharge. Extraocular Movements: Extraocular movements intact. Neck: Comments: Trach mask to trach Cardiovascular: Rate and Rhythm: Normal rate and regular rhythm. Pulmonary: Effort: No respiratory distress. Skin: Coloration: Skin is not jaundiced. Neurological: Mental Status: She is alert. Comments: A&Ox4 Psychiatric: Mood and Affect: Mood is not anxious or depressed. Speech: Speech normal. Behavior: Behavior is not agitated or aggressive. Behavior is cooperative. Cognition and Memory: Cognition is not impaired. Current Medications: Inpatient medications reviewed: yes Home medications reviewed: yes OARRS Reviewed: Yes-gabapentin 1 time prescription 09/2023, long-term use ambien 24 Hour PRN Meds: MAR reviewed Results/Verification of Data Review Objective data reviewed (be specific which labs, imaging reports with dates reviewed): - Vitals and MAR 02/01/24 - Labs 02/01/24 - ICU progress note 02/01/24 Data in Support of Terminal Illness: Is patient hospice appropriate? TBD, does not align with goals Images from the original note were not included. Speech-Language Pathology SPEECH LANGUAGE PATHOLOGY [facility] [place] Valve Evaluation Patient Name: Luiza May Evaluation Date: 02/01/2024 Date of : 1955 Admission Date: 01/28/2024 6:42 PM Age: 68 y.o. Room/Bed: T1-114/T1-114 A IMPRESSION: Pt with excellent tolerance of PMV characterized by no back pressure, vital signs stable, clear strong vocal quality. RECOMMENDATION: PMV as tolerated or on a PRN basis *Cuff must be deflated at all times during speaking valve use* *Remove speaking valve if SpO2 is below 90% or shows sx respiratory distress* *Remove speaking valve if the patient complains of difficulty breathing* *Remove speaking valve if the patient's voice becomes strained/strangled* *Remove speaking valve while patient is sleeping* No skilled acute BELT REPAIRER indicated at this time. Please reconsult should changes occur. Subjective Patient alert and cooperative. Seen upright in bed. Answers all basic questions with clear vocal quality. Follows all basic commands. Visitors at bedside - family. Spoke with RN who cleared pt to be evaluated. Trach Surgical Airway Cuffed 6.5 (Active) Placement Date/Time: 10/04/23 1200 Surgical Airway Type: Tracheostomy Style: Cuffed Size (mm): 6.5 Surgical Airway Shiley 6 (Active) No placement date or time found. Surgical Airway Type: Tracheostomy Brand: Shiley Size (mm): 6 Oxygen Oxygen Therapy: Supplemental oxygen O2 Delivery Method: Trach mask O2 Flow Rate (L/min): 10 L/min Past Medical History: Past Medical History: Diagnosis Date Asthma CAD (coronary artery disease) Cerebral artery occlusion with cerebral infarction ([facility]) COPD (chronic obstructive pulmonary disease) ([facility]) Hypertension Past Surgical History: Past Surgical History: Procedure Laterality Date APPENDECTOMY CHOLECYSTECTOMY COLONOSCOPY COLONOSCOPY CT CHEST ANGIOGRAM W AND/OR WO IV CONTRAST 07/26/2022 CT CHEST ANGIOGRAM W AND/OR WO IV CONTRAST 07/26/[address] [facility] [address] IMAGING Admission Diagnosis: Patient Active Problem List Diagnosis Date Noted Status epilepticus ([facility]/HCC) ([facility]) 01/28/2024 Seizure ([facility]) 09/26/2023 Severe malnutrition (CMS/HCC) ([facility]) 07/26/2022 COPD exacerbation ([facility]) 07/25/2022 Acute respiratory failure with hypoxia and hypercapnia ([facility]) 09/26/2023 Hemorrhage of gastrointestinal tract 04/17/2017 Cerebrovascular accident (CVA) due to embolism of cerebral artery ([facility]) 02/12/2017 Acute deep vein thrombosis (DVT) of distal vein of right lower extremity ([facility]) 02/12/2017 Encephalopathy 02/12/2017 Posterior reversible encephalopathy syndrome ([facility]) 02/12/2017 Alcohol abuse 02/10/2017 NSTEMI (non-ST elevated myocardial infarction) ([facility]) 02/10/2017 History of hematemesis 02/10/2017 History of Present Illness: 68yoF with COPD/seizures and trach from recent admission to [facility], presented earlier today to [facility] with possible seizure. Her family called EMS when the pt had a shaking episode. A+Ox2 per EMS on arrival and pt was brought to the ER. This was around 1000. The ER assessed and sent her home. Later in the day around 1400, the pt had another episode of shaking and was brought back again. At [facility], she has had a negative CTA head. Negative CXR. No leukocytosis but L shift is present. INR of 1. Creat 0.93. No LA. Seizure history is very nebulous indeed. Most recent outpt notes have her off AED entirely. Family reports that she gets more delirious lately - they see this when she is non-complaint with her BIPAP. Daughter notes that she likely has not been using her mask. On exam, she is shaking her feet and arms with her eyes closed. When awoken by grabbing her foot, answers simple questions appropriately. Not seizing but significant hypercapnia is probable. Patient Complaint: No complaints at this time. Pain: Pt denies any current pain. PPE Worn: gloves Objective Passy Clau Valve (PMV) evaluation completed. Secretions Amount: mild Color: pale yellow Tenacity: thin Suctioning required prior to valve placement: no Finger Occlusion Stridor noted: no Exhalation: passive Voicing: able, clear/strong Speaking valve trial Speaking valve type: PMV Inline (Aqua) Pre-trial SpO2: 100 % Pre-trial respiratory rate: 100% Length of trial: 30 minutes Voicing: able, clear/strong Speech: intelligible Back pressure with valve removal: no Post-trial SpO2: 100% Post-trial respiratory rate: 100% At end of assessment, PMV was left in place, RN notified. Education Education Given: safety, PMV Given To: patient, family, and RN Response: verbalizes understanding Goals Patient Stated Goal: To keep PMV in place. Therapy Time BELT REPAIRER Individual Minutes Time In: 1145 Time Out: 1200 Minutes: 15 Jul[facility] Ros[facility] Pharmacy to Dose Vancomycin - Progress Note Lab Results Component Value Date CREATININE 0.59 02/01/2024 BUN 21 (H) 02/01/2024 WBC 12.4 (H) 02/01/2024 VANCOTROUGH 30.0 (H) 01/31/2024 Doses, serum creatinine, and vancomycin levels interfaced automatically to [employer] and data has been analyzed and interpreted. Infectious Diagnosis: pneumonia Est CrCl: 87 mL/min (Cockcroft-Gault) Assessment: Current regimen vancomycin 1750 mg every 24 hours Predicted AUC = 534 mg/L*hr (goal 400-600 mg/L*hr) PAUC = 98% (probability that AUC is >400 mg/L*hr) Pconc = 0% (probability that Ctrough is above 20 mcg/mL (toxicity)) Plan: SCr stable, urine output stable. Predicted AUC therapeutic on current vancomycin regimen 1750mg q 24hr. Continue current regimen today and draw level w/ AM labs 02/01. Will follow and adjust as needed. DATE: 02/01/24 TIME: 10:09 AM Nelson Nicole RPh Clinical Pharmacist Available via Secure Chat [facility] Respiratory Care Department Progress Note Trach Mask Trial Start START TIME: 812 HR: 91 RR: 22 Fio2: 40 SpO2: 95 CUFF: Deflated Comments: Thank you for involving Respiratory in the care of this patient, ICU Progress Note Name: Luiza May : 1955(68 y.o.) Date: 02/01/24 Team: MICU Attending: DO Christo Subjective: Hospital Summary: 68yoF with COPD/seizures and trach from recent admission to [facility], presented earlier today to [facility] with possible seizure. Her family called EMS when the pt had a shaking episode. A+Ox2 per EMS on arrival and pt was brought to the ER. This was around 1000. The ER assessed and sent her home. Later in the day around 1400, the pt had another episode of shaking and was brought back again. At [facility] ED, she had a negative CTA/H and CXR. Unknown seizure history, most recent outpt notes do not have her on AEDs any longer. Family is concerned for increased delirium, primarily when she is non-compliant with her bipap. Interval Events: Tolerated trach mask through evening with nocturnal vent. Frustrated this AM with presence of trach Scheduled Meds:budesonide, 0.5 mg, Nebulization, Daily cefepime, 2,000 mg, IntraVENous, q8h enoxaparin, 40 mg, SubCUTAneous, Daily ipratropium-albuterol, 3 mL, Nebulization, 4x daily levETIRAcetam, 500 mg, IntraVENous, BID melatonin, 3 mg, Oral, Nightly methylPREDNISolone sod suc (PF), 40 mg, IntraVENous, q24h mupirocin, 1 Application, Nasal, BID sodium chloride 0.9%, 5-40 mL, IntraCATHeter, q8h vancomycin, 1,750 mg, IntraVENous, q24h Continuous Infusions:dexmedeTOMIDine, 0.1-1.5 mcg/kg/hr, Last Rate: 1.5 mcg/kg/hr (02/01/24411) fentaNYL, 25-200 mcg/hr, Last Rate: Stopped (01/31/24529) norepinephrine, 1-100 mcg/min, Last Rate: Stopped (01/31/24 1019) Objective: Last Vitals: BP MAP 143/70 (02/01/24599) 87 (02/01/24599) Arterial BP MAP Temp 36.9 C (98.5 F) (02/01/24410) Pulse 72 (02/01/24599) Resp 16 (02/01/24599) SpO2 98 % (02/01/24599) Weight 62.7 kg (138 lb 3.7 oz) (02/01/24 0539) BMI Body mass index is 24.49 kg/m . I/O: 01/30 700 - 01/31 659 In: 632 [I.V.:632] Out: 1505 [Urine:1505] Ventilator: Resp Rate (Set): 16 Vt (Set, mL): 400 mL FiO2 (%): 40 % PEEP/CPAP (cm H2O): 8 cm H20 Inspiratory Time (sec): 0.9 sec Oxygen Delivery: O2 Flow Rate (L/min): 9 L/min Invasive Lines / Tubes / Drains: CVC Triple Lumen 01/29/24 Non-tunneled Right Internal jugular (Active) Number of days: 1 Peripheral IV 01/28/24 Anterior;Right Wrist (Active) Number of days: 3 Urethral Catheter Straight-tip (Active) Number of days: 1 Surgical Airway Shiley 6 (Active) Number of days: Central Line Indication: Vesicant infusions/medications at high risk of causing extravasation Soliman Indications: Hourly I&Os (Critical Care ONLY) Restraints: Restraints Non-Violent Or Non-Self Destructive Jan 29, 2024 10:49 Pm Edt Wounds: Wound/Incision 10/03/23 Other (comment) Perineum (Active) Date First Assessed: 10/03/23 Primary Wound Type: Other (comment) Location: Perineum Wound Description (Comments): Incontinence-related dermatitis Non-staged Wound Description: Not applicable Wound/Incision 10/12/23 Skin Tear Forearm Anterior;Left (Active) Date First Assessed/Time First Assessed: 10/12/23 0600 Primary Wound Type: (c) Skin Tear Location: Forearm Wound Location Orientation: Anterior;Left Constitutional: General Appearance []WDWN []Obese []Cachectic []Thin [x]Chronically Ill Eyes: Inspection of Pupils/Irises Pupils round and react: [x]Yes []No Sclera: []Icteric [x]Non-Icteric Inspection of Conjunctiva/Lids Conjunctiva: []Injected [x]Non-Injected Lids: [x]Intact []Lesion Present ENT/Mouth: External Inspection of ears/nose [x] Normal [] Scar/Lesion/Mass Inspection of teeth/lips/gums Dentition: [][place] Teeth []Dentures Lips/Gums: []Intact []Lesion Present Mucosa: [][place] []Moist []Dry Neck: External Appearance Overall Appearance: [x]Normal []Lesion/Mass/Crepitus Present Trachea midline: [x]Yes []No Thyroid []Normal []Enlarged []Tender []Mass []Absent Respiratory: Respiratory effort []Labored []Non-Labored [x] Mechanically-Ventilated Auscultation [x]Clear []Crackles []Wheezes []Rhonchi Cardiovascular: Auscultation Rate: [x]Regular []Irregular []Tachycardia []Bradycardia Rhythm: [x]Regular []Irregular Murmur: []Present []Absent Extremities Peripheral Edema: []Present [x]Absent Varicosities: []Present [x]Absent Gastrointestinal: Abdomen Palpation: [x]Soft []Firm []Tender [x]Non-Tender []Distended [x]Non-distended Mass: []Present []Absent Bowel Sounds: []Present []Absent Hernia: []Present []Absent Liver/Spleen: []Hepatosplenomegaly []Organomegaly Absent Musculoskeletal: Inspection of Digits and Nails Cyanosis: []Present [x]Absent Clubbing: []Present []Absent Ischemia: []Present [x]Absent Infection: []Present []Absent Extremities REGALADO Equally: Except ([]RUE []RLE []LUE []LLE) Strength/Tone: Intact and Normal ([x]RUE [x]RLE [x]LUE [x]LLE) Skin: Inspection [x]Normal []Rash []Lesion []Ulcer Palpation [x]Warm []Cool [x]Dry []Clammy []Nodules []Induration []Skin-tightening Cap-Refill: [] <3 sec [] >3 seconds (delayed) Neurologic: GCS EYE: 4 - Opens spontaneously GCS MOTOR: 6 - Obeys commands for movement GCS VERBAL: 4 - Confused Total GCS: 14 [] Sensation grossly intact Psych: Mental Status Alert: []Yes [] No Oriented: []x0 []X1 [x]X2 []x3 Mood/Affect []Normal []Flat []Agitated []Depressed []Anxious []Calm []Sedated [x]NAD [facility] within last 24 hours- BMP: Recent Labs 01/30/24 0000 01/31/24 0516 02/01/24 0524 NA 141 141 141 K 4.0 3.8 3.5 CL 104 103 106 CO2 35* 34* 32* BUN 22* 14 21* CREATININE 0.61 0.52 0.59 CALCIUM 8.8 8.8 9.3 LFTs: No results for input(s): AST , ALT , PROT , ALBUMIN , BILITOT , BILIRUBINU , ALKPHOS , LIPASE in the last 72 hours. Glucose: Recent Labs 01/30/24 0000 01/30/24 1459 01/31/24 0516 02/01/24 0524 GLUCOSE 153* -- 111* 104* POCGLU -- 239* -- -- Procal: Recent Labs 01/30/24 0000 PROCAL 0.02 CBC: Recent Labs 01/30/24 0000 01/30/24 0410 01/31/24 0516 01/31/24 1150 01/31/24 2328 02/01/24 0524 WBC 9.8 -- 11.5* -- -- 12.4* HGB 10.4 9.3* < > 9.8 9.1* < > 9.6 9.2 9.3* HCT 31.8* -- 30.7* -- -- 30.5* PLT 189 -- 159 -- -- 119* MCV 91.9 -- 90.3 -- -- 88.7 RDW 14.2 -- 14.6 -- -- 14.9 < > = values in this interval not displayed. ABGs: Recent Labs 01/29/24 1342 01/29/24 1953 01/29/24 2103 01/30/24 0000 01/31/24 0516 01/31/24 1150 02/01/24 0524 PHART 7.277* -- 7.194* -- -- -- -- RLL2WBL 85.5* -- 99.2* -- -- -- -- PO2ART 83.0 -- 23.5* -- -- -- -- OEL3IHB 39.0* -- 37.4* -- -- -- -- [id number] Other (Add Comment) < > Bi-PAP < > 40% Oxygen 40% Oxygen Vent < > = values in this interval not displayed. Lactic Acid: No results for input(s): LACTATE in the last 72 hours. INR: No results for input(s): INR in the last 72 hours. Cardiac Injury Profile: No results for input(s): CKTOTAL , CKMB , TROPONINI in the last 72 hours. Labs in Last 3 months: Lab Results Component Value Date TSH 1.148 01/29/2024 VITD25 32 01/29/2024 Microbiology- Urine Cx: Lab Results Component Value Date URINECX 07/29/2022 Insignificant growth based on current clinical guidelines Blood Cx: Lab Results Component Value Date BLOODCX No growth at 72 hours 01/28/2024 Sputum Cx: Lab Results Component Value Date RESPCULT Few respiratory ailyn present. 01/28/2024 RESPCULT Moderate Pseudomonas aeruginosa (A) 01/28/2024 Gram Stain: Lab Results Component Value Date LABGRAM (A) 01/28/2024 Moderate Polymorphonuclear leukocytes per low power field LABGRAM Few Epithelial cells per low power field (A) 01/28/2024 LABGRAM Few Gram positive cocci (A) 01/28/2024 LABGRAM Few Gram positive bacilli (A) 01/28/2024 LABGRAM Few Gram negative bacilli (A) 01/28/2024 PNA PCR: Lab Results Component Value Date HUMANMETAPNE Not Detected 01/28/2024 COVID19: No results found for: COVID19 Legionella Ag: Lab Results Component Value Date LEGIONELLAPN Not Detected 01/28/2024 Strep Ag: No results for input(s): STREPPNEUMO in the last 72 hours. Imaging- XR chest 1 view Result Date: 01/29/2024 Patient Name: LUIZA MAY : 1955 Exam Date/Time: 01/29/2024 16:26 Procedure: XR CHEST 1 VIEW Ordering Provider: GAXIOLA MATTHEW Reason For Exam: Central Line Clinical History: Central Line Comparison: 01/28/2024 Technique: Single AP radiograph of the chest. Findings: Tracheostomy in adequate position. Right IJ central venous catheter tip in the lower SVC. The cardiomediastinal silhouette and pulmonary vasculature are normal. The lungs and pleural spaces are clear. No sizable pneumothorax. No acute consolidative process. Report Dictated on Electronically Signed By: Jeet Perez DR Electronically Signed Date/Time: 01/29/2024 4:27 PM EDT XR chest 1 view Result Date: 01/28/2024 Patient Name: LUIZA MAY : 1955 Exam Date/Time: 01/28/2024 20:42 Procedure: XR CHEST 1 VIEW Ordering Provider: GAXIOLA MATTHEW Reason For Exam: Dyspnea CHEST CLINICAL INDICATION: Dyspnea TECHNIQUE: AP portable chest COMPARISON: Chest radiograph from 10/07/2023 FINDINGS: SUPPORT DEVICES: Tip of the tracheostomy tube projects over the mid trachea. HEART AND MEDIASTINUM: Stable mild prominence of the cardiac silhouette. LUNGS AND PLEURA: No focal consolidation. Emphysematous changes. No sizable pleural effusion . No pneumothorax is identified. OSSEOUS STRUCTURES: Degenerative change of the spine. No acute cardiopulmonary abnormality. Report Dictated on Electronically Signed By: Saray Rosario MD Electronically Signed Date/Time: 01/28/2024 8:47 PM EDT Assessment and Plan: Principal Problem: Status epilepticus (CMS/HCC) ([facility]) Assessment: Acute on chronic hypoxic and hypercapnic respiratory failure Seizure-like activity? Developing leukocytosis, likely secondary to steroids COPD Hx of prior stroke: bi hemispheric MCA strokes, atrophy and encephalomalacia Hx of traumatic SDH Hx of ETOH abuse Hx of CREST syndrome (per chart) Hx of anxiety/depression Plan: Trial trach mask with nocturnal vent. 2. For now, will resume keppra. If nothing compelling for seizures, may be reasonable to DC. 3. Wean from precedex and reassess capacity 3. PNA PCR w MRSA, Moraxella, and Pseudomonas 4. Procal negative. Bcx NGx3. 5. Vanc/cefepime 6. Speech eval prior to PO intake. 7. Scheduled bronchodilators with hypertonic saline. 8. 40 mg Solumedrol daily 9. Consult to palliative care. Pt not wearing BIPAP. May have some cognitive impairment developing, but if unable to wear BIPAP then probably a hospice pt 10. Palliative on board; appreciate recs GI Prophylaxis: NA DVT Prophylaxis: Lovenox 40 q 24hr - creatinine clearance >30 Disposition: Remain in ICU Status Associated attestation - Mildred Villafuerte DO - 02/01/2024 4:05 PM EDT I have personally performed a [id number] diagnostic evaluation on this patient on date of service 02/01/24. History, labs, imaging studies, and electronic medical record have been reviewed by me. This note documented by the [x]warehouse general laborer []BACILIO reflects my history, exam, and medical decision making. I have reviewed and agree with the care plan. Changes were made in the orders as necessary. ROS documentation was reviewed and negative unless otherwise stated in HPI. Additional pertinent interval history, ROS, and physical exam findings: Remained agitated throughout the evening yesterday. On 1 mcg/kg/hr Precedex this morning and remains agitated and stating I am done. Refused to go back on the ventilator last night. VBG remains compensated on trach mask. Assessment: -acute on chronic hypoxic and hypercapnic respiratory failure-2/2 polymicrobial LRTI and AECOPD -baseline wears bipap at night (though historically noncompliant) -agitation, acute encephalopathy-improving -possible seizure -COPD -prior stroke, prior traumatic SDH -previous EtOH abuse -normocytic anemia -anxiety/depression -noncompliance Plan: -at baseline trach is capped and patient is supposed to wear bipap at bedtime. Per patient, she wears bipap nightly but it somehow comes off during the night. Plan to cap trach tonight and place patient on auto Bipap. RT instructed to try multiple different mask interfaces to see which she best tolerates. Repeat VBG in am -cont Vanc/Cefepime (course planned through 02/03) for HAP -cont steroids, nebs -stop Keppra. No convincing evidence of seizure and not a home med -start Cymbalta for anxiety/depression -palliative care consulted, appreciate recs. Patient currently wishes to remain full code. Expressed the importance of compliance with bipap nightly and with naps. Patient needs to establish with a electric bath attendant. She should not have her trach decannulated until she can prove stability/compliance with bipap. Total critical care time for this patient with life-threatening unstable organ failure, including direct patient contact, management of life support systems, review of data including imaging and labs, and discussions with other team members and physicians at least 45 minutes so far today, excluding procedures. Speech-Language Pathology Acknowledge ST orders for dysphagia. Patient has a trach and is currently weaning off the vent. When patient is able to tolerate trach dakotah, please re-order ST for PMV speaking valve. ST will assess PMV tolerance prior to PO trials/dysphagia evaluation. Vianca Sharif MA CCC-BELT REPAIRER [facility] Respiratory Care Department Progress Note Trach Mask Trial Start START TIME: 1503 HR: 100 RR: 26 Fio2: 40 SpO2: 99 CUFF: Deflated Comments: Thank you for involving Respiratory in the care of this patient, Pharmacy to Dose Vancomycin - Progress Note Lab Results Component Value Date CREATININE 0.52 01/31/2024 BUN 14 01/31/2024 WBC 11.5 (H) 01/31/2024 VANCOTROUGH 30.0 (H) 01/31/2024 Doses, serum creatinine, and vancomycin levels interfaced automatically to [employer] and data has been analyzed and interpreted. Infectious Diagnosis: pneumonia Est CrCl: >100 mL/min (Cockcroft-Gault) Assessment: Current regimen vancomycin 1500 mg every 24 hours Predicted AUC = 408 mg/L*hr (goal 400-600 mg/L*hr) PAUC = 55% (probability that AUC is >400 mg/L*hr) Pconc = 0% (probability that Ctrough is above 20 mcg/mL (toxicity)) Plan: SCr stable. Level this AM predicts AUC at the lower limit of therapeutic range, approx 50% chance of subtherapeutic dose. Will increase dose slightly to 1750mg q 24hr. Will redraw level 02/01 and adjust regimen as needed. DATE: 01/31/24 TIME: 9:53 AM Nelosn Nicole [facility] Clinical Pharmacist Available via Secure Chat ICU Progress Note Name: Luiza May : 1955(68 y.o.) Date: 01/31/24 Team: MICU Attending: DO Christo Subjective: Hospital Summary: 68yoF with COPD/seizures and trach from recent admission to [facility], presented earlier today to [facility] with possible seizure. Her family called EMS when the pt had a shaking episode. A+Ox2 per EMS on arrival and pt was brought to the ER. This was around 1000. The ER assessed and sent her home. Later in the day around 1400, the pt had another episode of shaking and was brought back again. At [facility] ED, she had a negative CTA/H and CXR. Unknown seizure history, most recent outpt notes do not have her on AEDs any longer. Family is concerned for increased delirium, primarily when she is non-compliant with her bipap. Interval Events: NAEO. Resting comfortably. Remains on pressor support. Scheduled Meds:budesonide, 0.5 mg, Nebulization, Daily cefepime, 2,000 mg, IntraVENous, q8h enoxaparin, 40 mg, SubCUTAneous, Daily ipratropium-albuterol, 3 mL, Nebulization, 4x daily levETIRAcetam, 500 mg, IntraVENous, BID melatonin, 3 mg, Oral, Nightly methylPREDNISolone sod suc (PF), 40 mg, IntraVENous, q24h mupirocin, 1 Application, Nasal, BID sodium chloride 0.9%, 5-40 mL, IntraCATHeter, q8h vancomycin, 1,500 mg, IntraVENous, q24h Continuous Infusions:dexmedeTOMIDine, 0.1-1.5 mcg/kg/hr, Last Rate: 1 mcg/kg/hr (01/31/24 0630) fentaNYL, 25-200 mcg/hr, Last Rate: Stopped (01/31/24 0530) norepinephrine, 1-100 mcg/min, Last Rate: 2 mcg/min (01/30/24 1745) Objective: Last Vitals: BP MAP 114/71 (01/31/24 0645) 78 (01/31/24644) Arterial BP MAP Temp 37.2 C (98.9 F) (01/31/24 0400) Pulse 80 (01/31/2445) Resp 17 (01/31/24644) SpO2 95 % (01/31/24644) Weight 60.2 kg (132 lb 11.5 oz) (01/31/24 0539) BMI Body mass index is 23.51 kg/m . I/O: 01/29 700 - 01/30 659 In: 1274 [I.V.:1274] Out: 800 [Urine:800] Ventilator: Resp Rate (Set): 10 Vt (Set, mL): 350 mL FiO2 (%): 40 % PEEP/CPAP (cm H2O): 8 cm H20 Inspiratory Time (sec): 0.9 sec Oxygen Delivery: O2 Flow Rate (L/min): 4 L/min Invasive Lines / Tubes / Drains: CVC Triple Lumen 01/29/24 Non-tunneled Right Internal jugular (Active) Number of days: 1 Peripheral IV 01/28/24 Anterior;Right Wrist (Active) Number of days: 3 Urethral Catheter Straight-tip (Active) Number of days: 1 Surgical Airway Shiley 6 (Active) Number of days: Central Line Indication: Vesicant infusions/medications at high risk of causing extravasation Soliman Indications: Hourly I&Os (Critical Care ONLY) Restraints: Restraints Non-Violent Or Non-Self Destructive Jan 29, 2024 10:49 Pm Edt Wounds: Wound/Incision 10/03/23 Other (comment) Perineum (Active) Date First Assessed: 10/03/23 Primary Wound Type: Other (comment) Location: Perineum Wound Description (Comments): Incontinence-related dermatitis Non-staged Wound Description: Not applicable Wound/Incision 10/12/23 Skin Tear Forearm Anterior;Left (Active) Date First Assessed/Time First Assessed: 10/12/23599 Primary Wound Type: (c) Skin Tear Location: Forearm Wound Location Orientation: Anterior;Left Constitutional: General Appearance []WDWN []Obese []Cachectic []Thin [x]Chronically Ill Eyes: Inspection of Pupils/Irises Pupils round and react: [x]Yes []No Sclera: []Icteric [x]Non-Icteric Inspection of Conjunctiva/Lids Conjunctiva: []Injected [x]Non-Injected Lids: [x]Intact []Lesion Present ENT/Mouth: External Inspection of ears/nose [x] Normal [] Scar/Lesion/Mass Inspection of teeth/lips/gums Dentition: [][place] Teeth []Dentures Lips/Gums: []Intact []Lesion Present Mucosa: [][place] []Moist []Dry Neck: External Appearance Overall Appearance: [x]Normal []Lesion/Mass/Crepitus Present Trachea midline: [x]Yes []No Thyroid []Normal []Enlarged []Tender []Mass []Absent Respiratory: Respiratory effort []Labored []Non-Labored [x] Mechanically-Ventilated Auscultation [x]Clear []Crackles []Wheezes []Rhonchi Cardiovascular: Auscultation Rate: [x]Regular []Irregular []Tachycardia []Bradycardia Rhythm: [x]Regular []Irregular Murmur: []Present []Absent Extremities Peripheral Edema: []Present [x]Absent Varicosities: []Present [x]Absent Gastrointestinal: Abdomen Palpation: [x]Soft []Firm []Tender [x]Non-Tender []Distended [x]Non-distended Mass: []Present []Absent Bowel Sounds: []Present []Absent Hernia: []Present []Absent Liver/Spleen: []Hepatosplenomegaly []Organomegaly Absent Musculoskeletal: Inspection of Digits and Nails Cyanosis: []Present [x]Absent Clubbing: []Present []Absent Ischemia: []Present [x]Absent Infection: []Present []Absent Extremities REGALADO Equally: Except ([]RUE []RLE []LUE []LLE) Strength/Tone: Intact and Normal ([x]RUE [x]RLE [x]LUE [x]LLE) Skin: Inspection [x]Normal []Rash []Lesion []Ulcer Palpation [x]Warm []Cool [x]Dry []Clammy []Nodules []Induration []Skin-tightening Cap-Refill: [] <3 sec [] >3 seconds (delayed) Neurologic: GCS EYE: 4 - Opens spontaneously GCS MOTOR: 6 - Obeys commands for movement GCS VERBAL: 4 - Confused Total GCS: 14 [] Sensation grossly intact Psych: Mental Status Alert: []Yes [] No Oriented: []x0 []X1 [x]X2 []x3 Mood/Affect []Normal []Flat []Agitated []Depressed []Anxious []Calm []Sedated [x]NAD [facility] within last 24 hours- BMP: Recent Labs 01/28/24195301/28/24220001/29/2452101/30/24 0000 01/31/24 0516 NA -- < > 143 141 141 K -- < > 4.5 4.0 3.8 CL -- < > 100 104 103 CO2 -- < > 36* 35* 34* BUN -- < > 21* 22* 14 CREATININE -- < > 0.68 0.61 0.52 CALCIUM -- < > 8.9 8.8 8.8 MG 1.7 -- -- -- -- < > = values in this interval not displayed. LFTs: Recent Labs 01/28/242200 AST 22 ALT 11 PROT 6.7 ALBUMIN 3.6 BILITOT 0.5 ALKPHOS 76 Glucose: Recent Labs 01/28/24220001/29/2452101/30/24 0000 01/30/24 1459 01/31/24 0516 GLUCOSE 98 85 153* -- 111* POCGLU -- -- -- 239* -- Procal: Recent Labs 01/28/24220001/30/24 0000 PROCAL 0.02 0.02 CBC: Recent Labs 01/29/2452101/29/2462101/30/24 0000 01/30/24 0410 01/30/24 0827 01/31/24 0516 WBC 7.3 -- 9.8 -- -- 11.5* HGB 9.4* < > 10.4 9.3* < > 9.9 9.8 9.1* HCT 33.8* -- 31.8* -- -- 30.7* PLT 160 -- 189 -- -- 159 MCV 93.9 -- 91.9 -- -- 90.3 RDW 14.3 -- 14.2 -- -- 14.6 < > = values in this interval not displayed. ABGs: Recent Labs 01/29/24 0622 01/29/24 1342 01/29/24 1953 01/29/24 2103 01/30/24 0000 01/30/24 0410 01/30/24 0827 01/31/24 0516 PHART 7.329* 7.277* -- 7.194* -- -- -- -- [id number] 76.7* 85.5* -- 99.2* -- -- -- -- PO2ART 98.0 83.0 -- 23.5* -- -- -- -- [id number] 39.4* 39.0* -- 37.4* -- -- -- -- [id number] Bi-PAP Other (Add Comment) < > Bi-PAP < > 60% Oxygen 50% Oxygen 40% Oxygen < > = values in this interval not displayed. Lactic Acid: No results for input(s): LACTATE in the last 72 hours. INR: No results for input(s): INR in the last 72 hours. Cardiac Injury Profile: No results for input(s): CKTOTAL , CKMB , TROPONINI in the last 72 hours. Labs in Last 3 months: Lab Results Component Value Date TSH 1.148 01/29/2024 VITD25 32 01/29/2024 Microbiology- Urine Cx: Lab Results Component Value Date URINECX 07/29/2022 Insignificant growth based on current clinical guidelines Blood Cx: Lab Results Component Value Date BLOODCX No growth at 48 hours 01/28/2024 Sputum Cx: Lab Results Component Value Date RESPCULT No growth of normal respiratory ailyn. 01/28/2024 RESPCULT Moderate Pseudomonas aeruginosa (A) 01/28/2024 Gram Stain: Lab Results Component Value Date LABGRAM (A) 01/28/2024 Moderate Polymorphonuclear leukocytes per low power field LABGRAM Few Epithelial cells per low power field (A) 01/28/2024 LABGRAM Few Gram positive cocci (A) 01/28/2024 LABGRAM Few Gram positive bacilli (A) 01/28/2024 LABGRAM Few Gram negative bacilli (A) 01/28/2024 PNA PCR: Lab Results Component Value Date HUMANMETAPNE Not Detected 01/28/2024 COVID19: No results found for: COVID19 Legionella Ag: Lab Results Component Value Date LEGIONELLAPN Not Detected 01/28/2024 Strep Ag: No results for input(s): STREPPNEUMO in the last 72 hours. Imaging- XR chest 1 view Result Date: 01/29/2024 Patient Name: LUIZA MAY : 1955 Exam Date/Time: 01/29/2024 16:26 Procedure: XR CHEST 1 VIEW Ordering Provider: GAXIOLA MATTHEW Reason For Exam: Central Line Clinical History: Central Line Comparison: 01/28/2024 Technique: Single AP radiograph of the chest. Findings: Tracheostomy in adequate position. Right IJ central venous catheter tip in the lower SVC. The cardiomediastinal silhouette and pulmonary vasculature are normal. The lungs and pleural spaces are clear. No sizable pneumothorax. No acute consolidative process. Report Dictated on Electronically Signed By: Jeet Perez DR Electronically Signed Date/Time: 01/29/2024 4:27 PM EDT XR chest 1 view Result Date: 01/28/2024 Patient Name: LUIZA MAY : 1955 Exam Date/Time: 01/28/2024 20:42 Procedure: XR CHEST 1 VIEW Ordering Provider: GAXIOLA MATTHEW Reason For Exam: Dyspnea CHEST CLINICAL INDICATION: Dyspnea TECHNIQUE: AP portable chest COMPARISON: Chest radiograph from 10/07/2023 FINDINGS: SUPPORT DEVICES: Tip of the tracheostomy tube projects over the mid trachea. HEART AND MEDIASTINUM: Stable mild prominence of the cardiac silhouette. LUNGS AND PLEURA: No focal consolidation. Emphysematous changes. No sizable pleural effusion . No pneumothorax is identified. OSSEOUS STRUCTURES: Degenerative change of the spine. No acute cardiopulmonary abnormality. Report Dictated on Electronically Signed By: Saray Rosario MD Electronically Signed Date/Time: 01/28/2024 8:47 PM EDT Assessment and Plan: Principal Problem: Status epilepticus (CMS/HCC) ([facility]) Assessment: Acute on chronic hypoxic and hypercapnic respiratory failure Seizure-like activity?: family notes these episodes when she is not wearing her BIPAP Developing leukocytosis COPD Hx of prior stroke: bi hemispheric MCA strokes, atrophy and encephalomalacia Hx of traumatic SDH Hx of ETOH abuse Hx of CREST syndrome (per chart) Hx of anxiety/depression Plan: 1.Trach to vent. Trial nocturnal bipap; full support if unable. Titrate to vbg. 2. For now, will resume keppra. If nothing compelling for seizures, may be reasonable to DC. 3. PNA PCR w MRSA, Moraxella, and Pseudomonas 4. Procal negative. Bcx Ngx2. 5. Vanc/cefepime 6. Speech eval prior to PO intake. 7. Scheduled bronchodilators with hypertonic saline. 8. 40 mg Solumedrol daily 9. Consult to palliative care. Pt not wearing BIPAP. May have some cognitive impairment developing, but if unable to wear BIPAP then probably a hospice pt. GI Prophylaxis: NA DVT Prophylaxis: Lovenox 40 q 24hr - creatinine clearance >30 Disposition: Remain in ICU Status Associated attestation - Mildred Villafuerte DO - 01/31/2024 2:57 PM EDT I have personally performed a [id number] diagnostic evaluation on this patient on date of service 01/31/24. History, labs, imaging studies, and electronic medical record have been reviewed by me. This note documented by the [x]warehouse general laborer []BACILIO reflects my history, exam, and medical decision making. I have reviewed and agree with the care plan. Changes were made in the orders as necessary. ROS documentation was reviewed and negative unless otherwise stated in HPI. Additional pertinent interval history, ROS, and physical exam findings: Remains agitated this morning, demanding to be discharged home. Remains on max dose Precedex. No longer on pressors. Assessment: -acute on chronic hypoxic and hypercapnic respiratory failure-2/2 polymicrobial LRTI and AECOPD -baseline wears bipap at night (though historically noncompliant) -agitation, acute encephalopathy -possible seizure -COPD -prior stroke, prior traumatic SDH -previous EtOH abuse -normocytic anemia -anxiety/depression -noncompliance Plan: -cont mech vent, wean as able. Currently requiring trach to vent and remains hypercapnic-->vent adjustments made. Repeat VBG pending -cont steroids, nebs -cont Vanc/Cefepime (course planned through 02/03) -cont Keppra for now, but this is not a home med. Suspect the seizure like activity may have just been myoclonus related to elevated C02 -currently remains NPO, does not have PEG or OG. If unable to wean from ventilator by tomorrow, may need to consider NG placement for enteral nutrition. If able to wean from ventilator, will place speech eval -palliative care consulted, appreciate recs Total critical care time for this patient with life-threatening unstable organ failure, including direct patient contact, management of life support systems, review of data including imaging and labs, and discussions with other team members and physicians at least 33 minutes so far today, excluding procedures. 01/30/241955 Patient Parameters Ventilator On Yes Vent ID [id number] $ Invasive Vent Daily Charge - Subsequent Yes Patient position Semi fowlers (30-45 ) Heart Rate 88 Resp 18 SpO2 100 % Breath sounds (right) Rhonchi Breath sounds (left) Rhonchi Skin Assessment Clean, dry, intact Secretion Color White Secretion Consistency Thick Respiratory Interventions Respiratory Interventions Performed Airway suction Suctioning/Secretions Secretion Amount Moderate Suction Device Inline catheter Suctioning Adverse Effects None Suction Type Tracheal Suction Tolerance Tolerated well Surgical Airway Shiley 6 No placement date or time found. Surgical Airway Type: Tracheostomy Brand: Shiley Size (mm): 6 Status Secured;Ventilator Ties Assessment Intact;Secure Airway Interventions Safety Equipment at Bedside Bag Valve Mask;Trach dislodgement box Settings Humidification Heat and moisture exchanger Vent Mode SIMV Mandatory Type VC+ Spontaneous Type PS Resp Rate (Set) 10 Vt (Set, mL) 350 mL FiO2 (%) 40 % PEEP/CPAP (cm H2O) 8 cm H20 Sensitivity 3 Inspiratory Time (sec) 0.9 sec Expiratory Sensitivity (%) 25 % Rise Time (%) 70 % PSV 8 cmH2O Readings PIP Observed (cm H2O) 17 cm H2O MAP (cm H2O) 10 Resp Rate Observed 27 Vt (observed, mL) 423 mL Minute Ventilation (L/min) 9.06 L/min I:E Ratio 1:2.2 Plateau Pressure (cm H2O) 32 cm H2O Dynamic Compliance (L/cm H2O) 47 L/cm H2O Static Compliance (L/cm H2O) 17 Airway Resistance 5.1 Total PEEP (cm H2O) 4.6 cm H2O Alarms High RR Alarm 45 breaths per minute Insp Pressure High (cm H2O) 50 cm H2O Insp Pressure Low (cm H2O) 11.5 cm H2O MV High (L/min) 25 L/min MV Low (L/min) 2 L/min Vt High (marcellus) (mL) 1000 mL Vt Low (marcellus) (mL) 200 mL Vt High (spont) (mL) 1000 mL Vt Low (spont) (mL) 200 mL High VTi 990 Apnea Interval (sec) 25 seconds SBT ended @ 1999, New orders for SIMV. Pt currently resting on this mode Time SBT started: 1500 Original Vent Settings: VC+ New SBT Vent Settings: PS8/8 Vt after change: Hemodynamics: stable Pt appears nonlabored and comfortable on SBT: yes RT Communication Placed in Epic: yes Adriano Marr DO CCM ATTENDING 3:05 PM 01/30/24 Pharmacy to Dose Vancomycin - Progress Note Lab Results Component Value Date CREATININE 0.61 01/30/2024 BUN 22 (H) 01/30/2024 WBC 9.8 01/30/2024 VANCOTROUGH 30.2 (H) 01/30/2024 Doses, serum creatinine, and vancomycin levels interfaced automatically to [employer] and data has been analyzed and interpreted. Infectious Diagnosis: Pneumonia (HAP) Est CrCl: ~85.5 mL/min (Cockcroft-Gault) Assessment: Current regimen vancomycin 1000 mg every 12 hours (~16.7 mg/kg) Predicted AUC = 649 mg/L*hr (goal 400-600 mg/L*hr) PAUC = 100% (probability that AUC is >400 mg/L*hr) Pconc = 32% (probability that Ctrough is above 20 mcg/mL (toxicity)) Plan: Is the current dose therapeutic? [x] No (supra-therapeutic) - change current regimen to vancomycin 1500 mg every 24 hours (~24 mg/kg) for predicted AUC 491 mg/L*hr, PAUC = 91% , and Pconc* = 1%. Obtain next level on 01/30 AM. Trend serum creatinine. Trend AUC using Bayesian Modeling. Orders placed. DATE: 01/30/24 TIME: 8:35 AM Natalie Gutierrez RPh Clinical Pharmacist Available via Secure Chat ICU Progress Note Name: Luiza May : 1955(68 y.o.) Date: 01/30/24 Team: MICU Attending: REMIGIO Assessment and Plan: Assessment: Delirium/encephalopathy Acute on chronic hypoxemic & hypercapnic respir failure Respiratory acidosis COPD/emphysema -- severe Trach in place. Tracheobronchitis --- polymicrobial per PCR. Respir cx with polymicrobial findings but final ident pending. Urinary retention -- made urine on 01/29/24 Normocytic anemia HFrEF (EF 45% ) H/o sz d/o not on outpt AED prior to admit. (Pt reported was taken off AED by one of her outpt docs). [facility] records show a admit for sz requiring ETT and the EMR also shows a record of seizure disorder/bihemispheric MCA strokes/recent traumatic SDH (08/2023) - seen by neurology; on [facility] H/o traumatic SDH and right crani for hematoma evac ( at [facility] in [place]) H/o DVT Plan: Maintain delirium protocol. Continue trach to vent for today. Monitor VBG for pH. Art line unsuccessful last night and would like to avoid fem stick. Continue nebs. Add steroids. Wean O2 to maintain SpO2 88-94%. Continue pressors. Wean to achieve MAP 65. Monitor fluid status and UOP. Continue Abx. Blood cultures final pending. Remains most likely tracheobronchitis over PNA. Continue trach care. Continue AED. Transition to PO once able. Continue DVT Prophy. Place NG for nutrition either late today or tomorrow if remains on vent. Analgesics: tylenol, fent Sedation: precedex, fent Pressors: Levo Vent: yes Diet: NPO DVT: lovenox GI: none ABx: Cefepime vanc Lines/Invasive Equip: PIV CVC Consultants: [facility] dietitian In my professional opinion this pt remains critically ill based on the aforementioned assessment/plan: Yes Lifethreatening disease process: Yes Unstable organ failure: No Active vent mgmt: Yes Active management of life support system(s): Yes Disposition: Unchanged. Critical Care Time: 35min Or Noncritical Care Time: n/a Total time caring for this patient including direct patient contact, review of data including imaging and labs, discussions with other team members and physicians, excluding procedures. Subjective: Hospital Summary: Chief Complaint Patient presents with Seizures Pt sent from [facility] for evaluation of seizures. Per transport, pt had 2-3 seizures prior to arriving at [facility] & was given a total of 1 mg of ativan and got loaded with keppra. Per EMS, pt has also been having trouble with hypoxia and was 85% on her home 3L. Pt arrives 99% on 6L. Pt does have a capped trach. AAOx2 upon triage, which per squad was baseline at OSH P/w confusion to OSH. Reports of increasing delirium lately at home. Suspicion by family that bipap may not be used consistently. Concern for sz at OSH. Found to have no acute findings on CTH at OSH. Found to have elevated CO2. Transferred to [facility] for ongoing mgmt. BP dropped 01/29/24 requiring pressor support. Central line placed 01/29/24 Transitioned to trach to vent on 01/29/24. Interval Events : Placed on trach to vent overnight. Worsening CO2. Delirium present. Remains on pressors. Past and present diagnoses are accessible in the electronic medical record for review by the treating and consulting physicians in the case. They were reviewed and updated (if needed) for this encounter. Objective: Last Vitals: BP MAP 121/54 (01/30/24 0645) 73 (01/30/24 0645) Arterial BP MAP Temp 37.3 C (99.2 F) (01/30/24 0400) Pulse 74 (01/30/24 0645) Resp 22 (01/30/24 0645) SpO2 100 % (01/30/2445) Weight 62.5 kg (137 lb 12.6 oz) (01/30/24 0400) BMI Body mass index is 24.41 kg/m . Physical Exam Vitals and nursing note reviewed. Constitutional: General: She is not in acute distress. Appearance: She is normal weight. She is ill-appearing. She is not toxic-appearing or diaphoretic. Interventions: She is sedated. HENT: Head: Normocephalic and atraumatic. Right Ear: External ear normal. Left Ear: External ear normal. Nose: Nose normal. Neck: Comments: Trach in place. Cardiovascular: Rate and Rhythm: Normal rate and regular rhythm. Pulmonary: Effort: Prolonged expiration present. Breath sounds: Rhonchi present. Abdominal: General: Abdomen is flat. Bowel sounds are normal. Palpations: Abdomen is soft. Tenderness: There is no abdominal tenderness. Musculoskeletal: Right lower leg: No edema. Left lower leg: No edema. Skin: General: Skin is warm. Coloration: Skin is pale. Skin is not ashen, cyanotic, jaundiced, mottled or sallow. Neurological: Mental Status: She is lethargic. Comments: Sedated. RT unsuccessful at 2nd ABG d/t pt agitation, RN and Dr cody Images from the original note were not included. 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 Tracheobronchitis vs PNA --- polymicrobial per PCR. Respir cx with polymicrobial findings but final ident pending. Urinary retention Normocytic anemia HFrEF (EF 45% ) H/o sz d/o not on outpt AED prior to admit. (Pt reported was taken off AED by one of her outpt docs). [facility] records show a admit for sz requiring ETT and the EMR also shows a record of seizure disorder/bihemispheric MCA strokes/recent traumatic SDH (08/2023) - seen by neurology; on Keppra H/o traumatic SDH and right crani for hematoma evac ( at [facility] in [place]) H/o DVT Plan: Delirium protocol. Melatonin nightly. Check b12, folate, TSH, vit D. Trial off of NIV this morning. Repeat ABG 1300. Ok to eat off of NIV. Place NIV back on if distress occurs or pt has depressed Mental status. Consider CTH at that time if decomps. Continue cefepime and vanc. Tailor regimen as more cx results available. Check UA and urine Ags once soliman placed. Uro consult for retention and difficulty passing soliman. Continue keppra. Transtion to PO tomorrow if able. Follow daily labs for cell counts. Analgesics: tylenol Sedation: none Pressors: none Vent: none but on NIV Diet: NPO at time of this eval DVT: lovenox GI: none ABx: Cefepime vanc Lines/Invasive Equip: PIV Consultants: [facility] dietitian In my professional opinion this pt remains critically ill based on the aforementioned assessment/plan: Yes Lifethreatening disease process: Yes Unstable organ failure: No Active vent mgmt: No Active management of life support system(s): Yes Disposition: Unchanged. Critical Care Time: 60min Or Noncritical Care Time: n/a Total time caring for this patient including direct patient contact, review of data including imaging and labs, discussions with other team members and physicians, excluding procedures. Subjective: Hospital Summary: Chief Complaint Patient presents with Seizures Pt sent from [facility] for evaluation of seizures. Per transport, pt had 2-3 seizures prior to arriving at OSH & was given a total of 1 mg of ativan and got loaded with keppra. Per EMS, pt has also been having trouble with hypoxia and was 85% on her home 3L. Pt arrives 99% on 6L. Pt does have a capped trach. AAOx2 upon triage, which per squad was baseline at OSH P/w confusion to OSH. Reports of increasing delirium lately at home. Suspicion by family that bipap may not be used consistently. Concern for sz at OSH. Found to have no acute findings on CTH at OSH. Found to have elevated CO2. Transferred to [facility] for ongoing mgmt. Interval Events : Tolerated NIV. Remains NPO. Not on pressors. Past and present diagnoses are accessible in the electronic medical record for review by the treating and consulting physicians in the case. They were reviewed and updated (if needed) for this encounter. Objective: Last Vitals: BP MAP 101/50 (01/29/24 0600) 65 (01/29/24 0600) Arterial BP MAP Temp 36.7 C (98.1 F) (01/29/24 0400) Pulse 91 (01/29/24 0600) Resp 17 (01/29/24 0600) SpO2 94 % (01/29/24 0600) Weight 59.8 kg (131 lb 13.4 oz) (01/28/24 2346) BMI Body mass index is 23.35 kg/m . Physical Exam Vitals and nursing note reviewed. Exam conducted with a compressed gas equipment mechanic present. Constitutional: General: She is awake. She is not in acute distress. Appearance: She is normal weight. She is ill-appearing. She is not toxic-appearing or diaphoretic. Interventions: Face mask in place. HENT: Head: Normocephalic and atraumatic. Right Ear: External ear normal. Left Ear: External ear normal. Nose: Nose normal. Eyes: General: Lids are normal. No scleral icterus. Extraocular Movements: Extraocular movements intact. Neck: Comments: Trach with read/brown purulence surrounding site. No erythema. Innner cannula in place. Cardiovascular: Rate and Rhythm: Normal rate and regular rhythm. Pulmonary: Effort: Pulmonary effort is normal. Abdominal: Tenderness: There is no abdominal tenderness. Comments: Healed PEG site. No abnormality surrounding or within umbilicus. Genitourinary: Pubic Area: No pubic lice. Melvin stage (genital): 5. Labia: Right: Tenderness present. No lesion or injury. Left: Tenderness present. No lesion or injury. Urethra: Urethral swelling present. No prolapse or urethral lesion. Comments: Inflammed erythematous labia majora and minora. No purulence noted. Musculoskeletal: Comments: MAEx4 Skin: General: Skin is warm. Coloration: Skin is not ashen, cyanotic, jaundiced, mottled, pale or sallow. Neurological: Mental Status: She is alert and oriented to person, place, and time. GCS: GCS eye subscore is 4. GCS verbal subscore is 5. GCS motor subscore is 6. Psychiatric: Attention and Perception: Attention normal. Mood and Affect: Mood normal. Behavior: Behavior is cooperative. documented in this encounter [facility] 02-11-2024 Telephone encounter Note Phoned Denis and went over notes below from Dr Franco with understanding. [facility] 02-11-2024 Miscellaneous Notes Phoned Denis and went over notes below from Dr Franco with understanding. Yes, Will follow Maryam Mohamud MD Denis from [facility] calling trying to set up home health for the patient. She will be discharging possible this weekend, there for prolonged seizure. Has orders for half-way, PT/OT. She is asking if PCP would follow patient and sign orders? Nurse is there today until 5 pm. Please advise documented in this encounter [facility] 02-11-2024 Telephone encounter Note Yes, Will follow Maryam Mohamud MD [facility] 02-11-2024 Telephone encounter Note Denis from [facility] calling trying to set up home health for the patient. She will be discharging possible this weekend, there for prolonged seizure. Has orders for half-way, PT/OT. She is asking if PCP would follow patient and sign orders? Nurse is there today until 5 pm. Please advise [facility] 02-11-2024 Nurse Note Right internal jugular removed. Pressure hold on the site after removal. Pt tolerated well. Pt up and walking with this RN in room and out in deviln. Tolerated well. documented in this encounter [facility] 02-11-2024 Hospital Discharge instructions Denis Sy 02/11/2024 10:31 AM EDT Images from the original note were not included. Continuity of Care Form Patient Name: Luiza May : 1955 Admit date: 01/28/2024 Discharge date: Code Status Order: Full Code Advance Directives: N Admitting Physician: Alayna Gaxiola MD PCP: Maryam Franco MD Discharging Nurse: Discharging Hospital Unit/Room#: W7-735/W7-735 A Discharging Unit Phone Number: Emergency Contact: Extended Emergency Contact Information Primary Emergency Contact: YOVANNYJAVAD HOLDENZenaida (AMEENA GLEASON Mobile Relation: Daughter Secondary Emergency Contact: Gene Mills Mobile Relation: Son Preferred language: [place] Police Dispatcher needed? No Past Surgical History: Past Surgical History: Procedure Laterality Date APPENDECTOMY CHOLECYSTECTOMY COLONOSCOPY COLONOSCOPY CT CHEST ANGIOGRAM W AND/OR WO IV CONTRAST 07/26/2022 CT CHEST ANGIOGRAM W AND/OR WO IV CONTRAST 07/26/[address] [facility] [address] IMAGING Immunization History: Immunization History Administered Date(s) Administered Pfizer SARS-CoV-2 Vaccination 09/28/2020, 10/20/2020, 06/18/2021 Active Problems: Medical Problems Problem List * (Principal) Status epilepticus (CMS/HCC) (HCC) COPD exacerbation (HCC) Severe malnutrition (CMS/HCC) (HCC) (Chronic) Seizure (HCC) Alcohol abuse Cerebrovascular accident (CVA) due to embolism of cerebral artery (HCC) NSTEMI (non-ST elevated myocardial infarction) (HCC) History of hematemesis Hemorrhage of gastrointestinal tract Overview Signed 04/16/2022 1:36 PM by Interface, Incoming Problems- [facility] Conversion Updating Deprecated Diagnoses Acute deep vein thrombosis (DVT) of distal vein of right lower extremity (HCC) Encephalopathy Posterior reversible encephalopathy syndrome (PRES) Acute respiratory failure with hypoxia and hypercapnia (HCC) Isolation/Infection: No active isolations MRSA Nurse Assessment: Last Vital Signs: BP 141/69 Pulse 94 Temp 36.8 C (98.3 F) (Temporal) Resp 18 Ht 1.6 m (5' 2.99 ) Wt 58.5 kg (129 lb) SpO2 98% BMI 22.86 kg/m Last documented pain score (0-10 scale): Last Weight: Wt Readings from Last 1 Encounters: 02/07/24 58.5 kg (129 lb) Mental Status: {POONAM Patient Mental Status:27612} IV Access: {POONAM IV Access:43465} Nursing Mobility/ADLs: Walking {RADHA ADL:09157:: Independent } Transfer {RADHA ADL:12837:: Independent } Bathing {RADHA ADL:64698:: Independent } Dressing {RADHA ADL:75594:: Independent } Toileting {RADHA ADL::: Independent } Feeding {RADHA ADL::: Independent } Mink Rancher {RADHA ADL::: Independent } Med Delivery {yes/no:48643} Wound Care Documentation and Therapy: Elimination: Continence: Bowel: {yes/no:25767} Bladder: {yes/no:41902} Urinary Catheter: {POONAM Urinary Catheter:18625} Colostomy/Ileostomy/Ileal Conduit: {YES / NO:} Date of Last BM: Intake/Output Summary (Last 24 hours) at 02/11/2024 1030 Last data filed at 02/10/2024 1800 Gross per 24 hour Intake 200 ml Output -- Net 200 ml I/O last 3 completed shifts: In: 500 (8.5 mL/kg) [P.O.:500] Out: 600 (10.3 mL/kg) [Urine:600 (0.3 mL/kg/hr)] Weight: 58.5 kg Safety Concerns: {POONAM Safety Concerns:32176} Impairments/Disabilities: {POONAM Impairments/Disabilities:58809} Nutrition Therapy: Current Nutrition Therapy: {POONAM Diet List:07322} Routes of Feeding: {routes of feedin} Liquids: {liquid consistency:86709} Daily Fluid Restriction: {daily fluid restriction:80124} Last Modified Barium Swallow with Video (Video Swallowing Test): {done not done:70759} Treatments at the Time of Hospital Discharge: Respiratory Treatments: Oxygen Therapy: {Therapy; copd oxygen:72319} Ventilator: {POONAM Ventilator:95575} Rehab Therapies: {GEN THERAPY DISCIPLINE SCAL:7201710} Weight Bearing Status/Restrictions: {POD WEIGHT BEARIN} Other Medical Equipment (for information only, NOT a DME order): {Assistive Devices DME:11030} Other Treatments: Patient's personal belongings (please select all that are sent with patient): {POONAM Patient Belongings:54326} RN SIGNATURE: {E-signature:83630} CASE MANAGEMENT/SOCIAL WORK SECTION Inpatient Status Date: 01/28/24 Discharging to Facility/ Agency [facility] (if applicable[facility] Name: Address: Dialysis Schedule: Phone: Fax: Photonics Engineering Technologist/Pants Presser Automatic signature: ICIAN SECTION Name: Luiza May Prognosis: {Rehab Prognosis:65523} Condition at Discharge: {Patient Condition:27873} Rehab Potential (if transferring to Rehab): {Rehab Prognosis:39539} Recommended Labs or Other Treatments After Discharge: The individual is being admitted to a nursing facility directly from an [facility] or a unit of a [facility] that is not operated by or licensed by [facility] under section 5119.14 or 5160-3-15.1 5 The individual requires the level of services provided by a nursing facility for the condition for which he or she was treated in the hospital and, Physician Certification: I certify the above information and transfer of Luiza May is necessary for the continuing treatment of the diagnosis listed and that she requires {POONAM Level of Care:50628} for {greater less than:68859} 30 days. Update Admission H&P: {POONAM Changes in H&P:06910} PHYSICIAN SIGNATURE: {E-signature:45856} documented in this encounter [facility] 02-10-2024 Note Referral placed to [facility] via [facility] per TCC request. Await review and response regarding ability to accept. TCC notified. [facility] 02-08-2024 Note Palliative Care, Radha atic, along with Critical Care procedure & progress notes transmitted to [facility]. Electronically signed [place] [facility] [place] 02-07-2024 Note Referral placed to [facility] via [facility]port per TCC request. Await review and response regarding ability to accept. TCC notified. Electronically Signed [place] [facility] [place] 02-07-2024 Note [facility] 02-07-2024 Procedure note Procedure: Tracheostomy replacement Original tracheostomy replaced due to positive cuff leak and need for nightly NIV for end-stage COPD. Original tracheosotmy Enedina 7.5 cuffed replaced with a new Enedina 7.5 cuffed. Cuff was checked and in working order prior to placement. Patient tolerated the procedure well. No noted complications. Associated attestation - Alayna Gaxiola MD - 02/07/2024 5:24 PM EDT I was present throughout procedure. Associated Order(s): UNSUCCESSFUL Arterial Line Insertion Post-Procedure Diagnose(s): Acute respiratory failure with hypoxia and hypercapnia (HCC) UNSUCCESSFUL Arterial Line Insertion Date/Time: 01/30/2024 1:00 AM Performed by: Bjorn Ford MD Authorized by: Bjorn Ford MD Consent: The indications, risks, benefits, alternatives to the procedure were explained to the patient/surrogate decision maker and their questions answered. Consent was obtained to proceed with the procedure. Timeout: Completed immediately prior to the start of the procedure which included verification of the correct patient, correct site and agreement on the procedure to be done. Indications: Indications: multiple ABGs and hemodynamic monitoring Anesthetic: Local anesthetic used: lidocaine without epinephrine Preparation: Patient was prepped and draped in usual sterile fashion. Skin prepped: skin prepped with chlorhexidine Procedure Details: Orientation: right Location: radial Number of attempts: 3 Post-Procedure: Post-procedure: dressing applied Description/Findings: Bright red pulsatile blood return noted Estimated blood loss: < 5 mL Complications: No apparent complications Assistants & Supervision: I personally performed the procedure documented as signed by this procedure note General Comments: Flash x3, wire would not thread, artery spasm, aborted procedure, follow VBG, can do spot arterial sticks for ABG with ultrasound if needed Associated Order(s): Central Line Insertion Post-Procedure Diagnose(s): Hypotension, unspecified hypotension type Central Line Insertion Date/Time: 01/29/2024 4:13 PM Performed by: Noreen Castro MD Authorized by: Noreen Castro MD Consent: The indications, risks, benefits, alternatives to the procedure were explained to the patient/surrogate decision maker and their questions answered. Consent was obtained to proceed with the procedure. Timeout: Completed immediately prior to the start of the procedure which included verification of the correct patient, correct site and agreement on the procedure to be done. Indication: Infusion(s) with high risk of extravasation injury Anesthetic: Local anesthetic used: lidocaine without epinephrine Procedure Details: Preparation: skin prepped with chlorhexidine Skin prep agent dried: skin prep agent completely dried prior to procedure Sterile barriers: all five maximum sterile barriers used - cap, mask, sterile gown, sterile gloves, and large sterile sheet Hand hygiene: hand hygiene performed prior to central venous catheter insertion Sterile technique: Sterile technique maintained throughout procedure. Central Line Type: central venous catheter Orientation: right Location details: internal jugular Catheter type: triple lumen Catheter size: 7 Fr Number of attempts: 1 Ultrasound guidance: yes Post-Procedure: Post-procedure: line sutured and antimicrobial dressing applied Description/Findings: dark, non-pulsatile blood return obtained from all lumens Estimated blood loss: < 10 mL Complications: No apparent complications Follow-up chest x-ray: ordered Assistants & Supervision: Burglar Alarm Operator(s): Adriano Marr MD Lamp Decorator: Adriano Marr MD The attending physician was physically present while the proceduralist performed starr/critical components of the procedure. Attending: Adriano Marr MD General Comments: Bubble study peformed at bedside to ensure proper placement to start pressors prior to CXR Associated attestation - Adriano Marr DO - 01/30/2024 10:55 AM EDT Supervising CCM Attending s Attestation Statement I was present with the CCM Fellow during the entirety of the procedure. Complications during procedure: None Patient tolerated procedure: Yes Adriaon Marr DO [facility] ATTENDING 10:55 AM 01/30/24 documented in this encounter [facility] 02-05-2024 Consult note Associated Order (s): IP CONSULT TO GERIATRICS [facility] Geriatric Medicine Inpatient Consult Service Admission Date: 01/28/2024 Admission Status: INPATIENT Chief Complaint: Chief Complaint Patient presents with Seizures Pt sent from [facility] for evaluation of seizures. Per transport, pt had 2-3 seizures prior to arriving at OSH & was given a total of 1 mg of ativan and got loaded with keppra. Per EMS, pt has also been having trouble with hypoxia and was 85% on her home 3L. Pt arrives 99% on 6L. Pt does have a capped trach. AAOx2 upon triage, which per squad was baseline at OSH Reason for Appointment Geriatrics consulted for Dementia Assessment & Plan Principal Problem: Status epilepticus (CMS/HCC) (HCC) Cognitive Impairment --Mild to moderate deficits on initial testing ( on MMSE). --+ history of cognitive decline at home. + history of decline in ADL's and IADL's --TSH WNL, B12 WNL --Head imaging - multifocal encephalomalacia right occipital and left parietal lobase, right prece precentral gyrus right thalamus, and bilateral cerebellar hemispheres that are unchanged. Mild generalized brain parenchymal volume loss --History concerning for baseline dementia-multiple risk factors including history of brain injury, multiple areas of strokes on head imaging, history of EtOH - Do suspect that anxiety/depression are also contributing to her symptoms --Recommend outpatient [facility] at [facility] for more in depth cognitive evaluation when in usual state of health. Discussed with patient's daughter at length, information added to discharge information, agreeable to following up Metabolic encephalopathy --Resolved, does not appear encephalopathic on examination today --Etiology likely related to hypercarbia, infection, ICU and hospitalization, potentially worsened by history of anxiety/depression --Encourage PO intake, time up in chair, family visits, supervised ambulation, and sleep hygiene --If agitated, assess for and consider treating for pain --QTc= 447 --No antipsychotic unless patient is danger to self/others/treatment --Continue melatonin scheduled at nighttime --Monitor for constipation/urinary retention - last BM today --Possible medication contributions: prednisone, vistaril - [facility] documents routine rx for zolpidem 10 mg, last dispensed 01/27 #30, 30-day supply. Has not received since admission, did get a few doses of benzodiazepine but none over the past several days. Evaluate for need to resume, potentially at lower dose in order to prevent signs or symptoms of withdrawal. Mental status appears to be improving however still suspected. Continue to monitor off 3. Depression/anxiety -ok to resume duloxetine, continue to monitor, may need further treatment/optimization as outpatient -avoid benzodiazepines -avoid vistaril if possible 4. Insomnia -takes ambien regularly -continue BiPAP -evaluate for options for CBT-I 5 Declining functional status --Related to acute on chronic illness --Continue PT/OT as able while inpatient --Anticipate d/c to facility, PT recommendations pending progress Subjective: HPI 68 y.o. year-old female presented to the hospital for possible seizure. Patient was at home and had a shaking episode. Per report she was ANO x 2 on arrival to the ED. She was assessed and discharged home. Later in the day she had another episode and was brought back in. Initial head CT negative for acute findings, chest x-ray negative. Family reported that she been more delirious lately, not adherent with her BiPAP. Concern for tracheobronchitis versus pneumonia versus related to BiPAP noncompliance, treated with steroids and antibiotics. She does have a chronic trach from previous hospitalization. She was admitted inFebruary for subdural hematoma following an unwitnessed fall. Admitted here 09/25 - 10/11 for seizures that required intubation, failed extubation and underwent trach and PEG on 10/04/2023 subsequently admitted 10/11 to [facility] in [place]. Patient reports concerns about dementia, she is worried about dementia. Thinks it has been getting worse over the past 6-8 months, states that since her head injury and craniotomy (chart review shows this occurred in 01/2022 close (states that she has difficulty finding her words, poor short-term memory. Feels that she cannot safely drive but attributes this to her vision. Reports that her getting her eyes corrected is one of her biggest concerns. States she requires assistance for dressing and bathing but is able to do some light housework at times such as washing dishes. She admits to anxiety and depression. She is not sure if her medications are currently helpful because often feels shaky and jittery. Reviewed [facility]-routine Rx for zolpidem 10 mg, last Rx 01/28/2024 #30, 30-day supply Conversation with caregiver: daughter, Ameena per patient request (15 minutes) -states that memory loss started 6 years ago. Started before she got really sick. Started with numbers, would call to get a phone number and needed to say it several times before the she was able to be able to write it down -states that is has been getting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 inpatient Goals: Goals: PO intake 75% or greater, by next RD assessment Nutrition Monitoring and Evaluation: Behavioral-Environmental Outcomes: None Identified Food/Nutrient Intake Outcomes: Food and Nutrient Intake Physical Signs/Symptoms Outcomes: Biochemical Data, GI Status, Nutrition Focused Physical Findings, Skin, Weight Discharge Planning: Too soon to determine Ginny Reid RD, LD Contact: [phone] or via Style[employer]ok chat Images from the original note were not included. Pharmacy Managed Vancomycin Dosing Service Consult Note Consult Date: 01/29/24 Patient Name: Luiza May Allergies: Phenylephrine-guaifenesin and Tetanus toxoid Age: 68 y.o. Sex: female Estimated body mass index is 23.35 kg/m as calculated from the following: Height as of this encounter: 1.6 m (5' 3 ). Weight as of this encounter: 59.8 kg (131 lb 13.4 oz). DW: 59.8 kg Lab Results Component Value Date CREATININE 0.68 01/28/2024 CREATININE 0.58 10/12/2023 BUN 19 (H) 01/28/2024 BUN 30 (H) 10/12/2023 WBC 11.1 (H) 01/28/2024 WBC 9.7 10/12/2023 Calculated CrCl: 73 mL/min (Cockcroft-Gault) Consulted By: Alayna Gaxiola Infectious Diagnosis: Pneumonia (HAP) (AUC Goal 400-600 mg/L*hr) Random Vancomycin Level Due: 01/30/24 Antimicrobials: Patient recently received an antibiotic (last 12 hours) Date/Time Action Medication Dose 01/28/24 235 Given mupirocin (Bactroban) 2 % ointment 1 Application 1 Application 01/28/24 221 New Bag cefepime (Maxipime) 2,000 mg in sodium chloride 0.9 % 50 mL IVPB Mini-Bag Plus 2,000 mg Assessment/Plan: Doses, serum creatinine, and vancomycin levels interfaced automatically to [employer] and data has been analyzed and interpreted. Start Vancomycin 1000 mg every 12 hours based on patient age, weight, renal function, and infectious diagnosis (16.7 mg/kg). Predicted AUC = 571 mg/L*hr (goal 400-600 mg/L*hr) PAUC = 93% (probability that AUC is >400 mg/L*hr) Pconc = 22% (probability that Ctrough is above 20 mcg/mL (toxicity)) Will assess random level on 01/30/24 and adjust as appropriate. Trend serum creatinine. Orders placed. Thank you for this consult. Please secure text or call with questions. DATE: 01/29/24 TIME: 12:33 AM Rachelle Cantu PharmD Clinical Pharmacist Available via Secure Chat Images from the original note were not included. Internal Medicine: MICU Initial Consult Name: Luiza May : 1955(68 y.o.) Date: 01/28/24 Subjective: Chief Complaint: Confusion HPI: 68yoF with COPD/seizures and trach from recent admission to [facility], presented earlier today to [facility] with possible seizure. Her family called EMS when the pt had a shaking episode. A+Ox2 per EMS on arrival and pt was brought to the ER. This was around 1000. The ER assessed and sent her home. Later in the day around 1400, the pt had another episode of shaking and was brought back again. At [facility], she has had a negative CTA head. Negative CXR. No leukocytosis but L shift is present. INR of 1. Creat 0.93. No LA. Seizure history is very nebulous indeed. Most recent outpt notes have her off AED entirely. Family reports that she gets more delirious lately - they see this when she is non-complaint with her BIPAP. Daughter notes that she likely has not been using her mask. On exam, she is shaking her feet and arms with her eyes closed. When awoken by grabbing her foot, answers simple questions appropriately. Not seizing but significant hypercapnia is probable. Past Medical History: Diagnosis Date Asthma CAD (coronary artery disease) Cerebral artery occlusion with cerebral infarction (HCC) COPD (chronic obstructive pulmonary disease) (HCC) Hypertension Past Surgical History: Procedure Laterality Date APPENDECTOMY CHOLECYSTECTOMY COLONOSCOPY COLONOSCOPY CT CHEST ANGIOGRAM W AND/OR WO IV CONTRAST 07/26/2022 CT CHEST ANGIOGRAM W AND/OR WO IV CONTRAST 07/26/[address] [facility] [address] IMAGING No family history on file. Social History Socioeconomic History Marital status: Spouse name: Not on file Number of children: Not on file Years of education: Not on file Highest education level: Not on file Occupational History Not on file Tobacco Use Smoking status: Former Current packs/day: 0.00 Types: Cigarettes Quit date: 07/13/2013 Years since quittin.5 Smokeless tobacco: Not on file Vaping Use Vaping status: Never Used Substance and Sexual Activity Alcohol use: No Drug use: No Sexual activity: Not on file Other Topics Concern Not on file Social History Narrative Not on file Social Determinants of Health Financial Resource Strain: Low Risk (10/13/2023) Received from [facility], [facility] Overall Financial Resource Strain (CARDIA) Difficulty of Paying Living Expenses: Not hard at all Food Insecurity: No Food Insecurity (10/13/2023) Received from [facility] Hunger Vital Sign Worried About Running Out of Food in the Last Year: Never true Ran Out of Food in the Last Year: Never true Transportation Needs: No Transportation Needs (08/09/2023) Received from [facility], [facility] PRAPARE - Transportation Lack of Transportation (Medical): No Lack of Transportation (Non-Medical): No Physical Activity: Unknown (07/26/2022) Exercise Vital Sign Days of Exercise per Week: Not on file Minutes of Exercise per Session: 20 min Stress: Stress Concern Present (10/14/2023) Received from [facility] [place] [facility] - Occupational Stress Questionnaire Feeling of Stress : To some extent Social Connections: Moderately Isolated (10/13/2023) Received from [facility] Social Connection and Isolation Panel [NHANES] Frequency of Communication with Friends and Family: More than three times a week Frequency of Social Gatherings with Friends and Family: Twice a week Attends Zoroastrian Services: Never Active Member of Clubs or Organizations: No Attends Club or Organization Meetings: Never Marital Status: Living with partner Intimate Partner Violence: Not At Risk (07/26/2022) Humiliation, Afraid, Rape, and Kick questionnaire Fear of Current or Ex-Partner: No Emotionally Abused: No Physically Abused: No Sexually Abused: No Housing Stability: Low Risk (07/26/2022) Housing Stability Vital Sign Unable to Pay for Housing in the Last Year: No Number of Places Lived in the Last Year: 1 Unstable Housing in the Last Year: No Allergies Allergen Reactions Phenylephrine-Guaifenesin Other Reaction(s): Intolerance Tetanus Toxoid Swelling Prior to Admission medications Medication Sig Start Date End Date Taking? Authorizing Provider ARIPiprazole (Abilify) 2 MG tablet 1 tablet (2 mg) by Per G Tube route daily. 10/13/23 11/12/23 Crys Canseco DO aspirin 81 MG chewable tablet 1 tablet (81 mg) by Per G Tube route daily. 10/13/23 10/12/24 Crys Canseco DO atorvastatin (Lipitor) 40 MG tablet 1 tablet (40 mg) by Per G Tube route Nightly. 10/12/23 10/11/24 Crys Canseco DO budesonide (Pulmicort) 0.5 MG/2ML nebulizer solution Take 2 mL (0.5 mg) by nebulization in the morning. Rinse mouth with water after use to reduce aftertaste and incidence of candidiasis. Do not swallow.. 10/13/23 10/12/24 Crysprieto Canseco, DO cholecalciferol (Vitamin D-3) 25 MCG (1000 UT) tablet 1 tablet (1,000 Units) by Per G Tube route daily. 10/13/23 10/12/24 Crysprieto Canseco, DO enoxaparin (Lovenox) 40 MG/0.4ML solution prefilled syringe Inject 0.4 mL (40 mg) under the skin every 24 hours. 10/13/23 Crysprieto Canseco, DO escitalopram (Lexapro) 20 MG tablet 1 tablet (20 mg) by Per G Tube route daily. 10/13/23 01/11/24 Crysprieto Canseco, DO folic acid (Folvite) 1 MG tablet 1 tablet (1 mg) by Per G Tube route in the morning. 10/13/23 10/12/24 Crysprieto Canseco, DO furosemide (Lasix) 8 MG/ML solution 2.5 mL (20 mg) by Per G Tube route daily. 10/13/23 10/12/24 Crysprieto Canseco, DO gabapentin (Neurontin) 300 MG/6ML solution 6 mL (300 mg) by Per G Tube route Nightly. 10/12/23 Crysprieto Canseco, DO ipratropium-albuterol (Duo-Neb) 0.5-2.5 mg/3 mL nebulizer solution Take 3 mL by nebulization every 4 hours. 10/12/23 10/11[facility] levETIRAcetam (Keppra) 100 MG/ML solution 10 mL (1,000 mg) by Per G Tube route 2 times daily. 10/12/23 10/11/24 Crys Ajith, DO Propylene Glycol-Glycerin (Artificial tears) 1-0.3 % solution Administer 1 drop into both eyes 3 times daily as needed (dry eyes). 10/12/23 Crys Ajith, DO QUEtiapine (SEROquel) 50 MG tablet 1 tablet (50 mg) by Per G Tube route Nightly. 10/12/23 Crys Canseco, rOPINIRole (Requip) 1 MG tablet 1 tablet (1 mg) by Per G Tube route Nightly. 10/12/23 Crys Canseco DO Senna (Senokot) 8.8 MG/5ML syrup 10 mL by Per G Tube route 2 times daily. 10/12/23 Crys Canseco DO Objective: Oxygen Delivery: O2 Flow Rate (L/min): 6 L/min VITALS: BP 110/53 Pulse 101 Temp 37.7 C (99.8 F) (Oral) Resp 26 SpO2 99% CURRENT PULSE OXIMETRY: SpO2: 99 % Review of Systems Limited - chronic cough that is no worse per pt, chronic dyspnea unchanged. No CP. Constitutional: General Appearance []WDWN []Obese []Cachectic []Thin [x]Ill Eyes: Inspection of Pupils/Irises Pupils round and react: [x]Yes []No Sclera: []Icteric [x]Non-Icteric Inspection of Conjunctiva/Lids Conjunctiva: []Injected [x]Non-Injected Lids: [x]Intact []Lesion Present ENT/Mouth: External Inspection of ears/nose [x] Normal [] Scar/Lesion/Mass Inspection of teeth/lips/gums Dentition: [][place] Teeth []Dentures Lips/Gums: [x]Intact []Lesion Present Mucosa: [x][place] [x]Moist []Dry Neck: External Appearance Overall Appearance: [x]Normal - clean cuffed trach is present Trachea midline: [x]Yes []No Thyroid [x]Normal []Enlarged []Tender []Mass []Absent Respiratory: Respiratory effort [x]Labored []Non-Labored [] Mechanically-Ventilated Auscultation +upper airway sounds Cardiovascular: Auscultation Rate: [x]Regular []Irregular []Tachycardia []Bradycardia Rhythm: [x]Regular []Irregular Murmur: []Present []Absent Extremities Peripheral Edema: []Present [x]Absent Varicosities: []Present [x]Absent Gastrointestinal: Abdomen Palpation: [x]Soft []Firm []Tender []Non-Tender []Distended [x]Non-distended Mass: []Present []Absent Bowel Sounds: []Present []Absent Hernia: []Present []Absent Liver/Spleen: []Hepatosplenomegaly [x]Organomegaly Absent Musculoskeletal: Inspection of Digits and Nails Cyanosis: []Present [x]Absent Clubbing: []Present []Absent Ischemia: []Present [x]Absent Infection: []Present []Absent Extremities REGAL[place]O Equally: Except ([]RUE []RLE []LUE []LLE) Strength/Tone: Intact and Normal ([]RUE [x]RLE [x]LUE [x]LLE) Skin: Inspection [x]Normal []Rash []Lesion []Ulcer Palpation [x]Warm []Cool [x]Dry []Clammy []Nodules []Induration []Skin-tightening Cap-Refill: [] <3 sec [] >3 seconds (delayed) Neurologic: GCS EYE: 4 - Opens spontaneously GCS MOTOR: 6 - Obeys commands for movement GCS VERBAL: 4 - Confused Total GCS: 14 [] Sensation grossly intact Psych: Mental Status Alert: []Yes [x] No Oriented: []x0 []X1 [x]X2 - at best Mood/Affect []Normal []Flat []Agitated []Depressed []Anxious []Calm []Sedated [x]NAD Labs in Last 3 months: Lab Results Component Value Date TSH 1.049 10/03/2023 Microbiology- Urine Cx: Lab Results Component Value Date URINECX 07/29/2022 Insignificant growth based on current clinical guidelines Blood Cx: Lab Results Component Value Date BLOODCX No growth at 5 days 09/27/2023 Sputum Cx: Lab Results Component Value Date RESPCULT Rare respiratory ailyn present. 10/03/2023 Gram Stain: Lab Results Component Value Date LABGRAM 10/03/2023 Few Polymorphonuclear leukocytes per low power field LABGRAM Rare Epithelial cells per low power field 10/03/2023 LABGRAM No organisms seen 10/03/2023 PNA PCR: Lab Results Component Value Date HUMANMETAPNE Not Detected 10/03/2023 COVID19: No results found for: COVID19 Legionella Ag: Lab Results Component Value Date LEGIONELLAPN Not Detected 10/03/2023 Assessment and Plan: Assessment: Acute on chronic hypoxic and hypercapnic respiratory failure Seizure-like activity?: family notes these episodes when she is not wearing her BIPAP Excess mucous/Left shift COPD Hx of prior stroke: bi hemispheric MCA strokes, atrophy and encephalomalacia Hx of traumatic SDH Hx of ETOH abuse Hx of CREST syndrome (per chart) Hx of anxiety/depression Plan: Nocturnal BIPAP. Check ABG in the AM. For now, will resume keppra. If nothing compelling for seizures, may be reasonable to DC. Follow up procal and check blood cultures. Start cefepime but can likely DC if procal is negative. Speech eval prior to PO intake. Scheduled bronchodilators with hypertonic saline. Defer steroids for now. Consult to palliative care. Pt not wearing BIPAP. May have some cognitive impairment developing, but if unable to wear BIPAP then probably a hospice pt. Daughter Ameena May updated. DVT Prophylaxis: Lovenox Disposition: Transfer to ICU Stepdown Critical Care Time: 35 minutes Total critical care time caring for this patient with life threatening, unstable organ failure, including direct patient contact, management of life support systems, review of data including imaging and labs, discussions with other team members and physicians, excluding procedures. documented in this encounter [facility] 01-30-2024 Note [facility] 01-29-2024 Note [facility] 01-28-2024 History and physical note See consult note dated today for H+P. documented in this encounter [facility] 01-28-2024 Note See consult note chance ed today for H+P. [facility] 01-28-2024 Emergency department Note EMERGENCY DEPARTMENT ENCOUNTER Pt Name: Luiza May Birthdate 1955 Date of evaluation: 01/28/2024 ED Provider: KATINA SOSA DO CHIEF COMPLAINT Chief Complaint Patient presents with Seizures Pt sent from [facility] for evaluation of seizures. Per transport, pt had 2-3 seizures prior to arriving at [facility] & was given a total of 1 mg of ativan and got loaded with keppra. Per EMS, pt has also been having trouble with hypoxia and was 85% on her home 3L. Pt arrives 99% on 6L. Pt does have a capped trach. AAOx2 upon triage, which per squad was baseline at [facility]SH HISTORY OF PRESENT ILLNESS (Location/Symptom, Timing/Onset, Context/Setting, Quality, Duration, Modifying Factors, Severity) Note limiting factors. I wore appropriate PPE for the entirety of this encounter. HPI Luiza May is a 68 y.o. who presents to the emergency department complaining of seizures. Patient transferred here from [place] after she reportedly had 2 seizures lasting more than 5 minutes with no return to baseline. Was given Ativan. They also report some hypoxia with her finger pulse ox reading 70%. Patient is trach dependent however reportedly is supposed to be having this removed as there is question if she really needs it anymore. Patient has had a lot of secretions coming from the trach and has been suctioned multiple times. Patient seems altered but we do not know her baseline. ICU consulted. Patient has been placed on nasal cannula which actually has improved her SpO2 was up to 100%. When placed on trach mask she deteriorated down to 85. Nursing Notes were reviewed. Limitations to history: Altered mental status/confusion Outside historians: EMS REVIEW OF SYSTEMS Review of Systems Pertinent positives and negatives as per HPI. PAST MEDICAL HISTORY Past Medical History: Diagnosis Date Asthma CAD (coronary artery disease) Cerebral artery occlusion with cerebral infarction (HCC) COPD (chronic obstructive pulmonary disease) (HCC) Hypertension SURGICAL HISTORY Past Surgical History: Procedure Laterality Date APPENDECTOMY CHOLECYSTECTOMY COLONOSCOPY COLONOSCOPY CT CHEST ANGIOGRAM W AND/OR WO IV CONTRAST 07/26/2022 CT CHEST ANGIOGRAM W AND/OR WO IV CONTRAST 07/26/[address] [facility] [address] [facility] CURRENT MEDICATIONS Previous Medications ARIPIPRAZOLE (ABILIFY) 2 MG TABLET 1 tablet (2 mg) by Per G Tube route daily. ASPIRIN 81 MG CHEWABLE TABLET 1 tablet (81 mg) by Per G Tube route daily. ATORVASTATIN (LIPITOR) 40 MG TABLET 1 tablet (40 mg) by Per G Tube route Nightly. BUDESONIDE (PULMICORT) 0.5 MG/2ML NEBULIZER SOLUTION Take 2 mL (0.5 mg) by nebulization in the morning. Rinse mouth with water after use to reduce aftertaste and incidence of candidiasis. Do not swallow.. CHOLECALCIFEROL (VITAMIN D-3) 25 MCG (1000 UT) TABLET 1 tablet (1,000 Units) by Per G Tube route daily. ENOXAPARIN (LOVENOX) 40 MG/0.4ML SOLUTION PREFILLED SYRINGE Inject 0.4 mL (40 mg) under the skin every 24 hours. ESCITALOPRAM (LEXAPRO) 20 MG TABLET 1 tablet (20 mg) by Per G Tube route daily. FOLIC ACID (FOLVITE) 1 MG TABLET 1 tablet (1 mg) by Per G Tube route in the morning. FUROSEMIDE (LASIX) 8 MG/ML SOLUTION 2.5 mL (20 mg) by Per G Tube route daily. GABAPENTIN (NEURONTIN) 300 MG/6ML SOLUTION 6 mL (300 mg) by Per G Tube route Nightly. IPRATROPIUM-ALBUTEROL (DUO-NEB) 0.5-2.5 MG/3 ML NEBULIZER SOLUTION Take 3 mL by nebulization every 4 hours. LEVETIRACETAM (KEPPRA) 100 MG/ML SOLUTION 10 mL (1,000 mg) by Per G Tube route 2 times daily. PROPYLENE GLYCOL-GLYCERIN (ARTIFICIAL TEARS) 1-0.3 % SOLUTION Administer 1 drop into both eyes 3 times daily as needed (dry eyes). QUETIAPINE (SEROQUEL) 50 MG TABLET 1 tablet (50 mg) by Per G Tube route Nightly. ROPINIROLE (REQUIP) 1 MG TABLET 1 tablet (1 mg) by Per G Tube route Nightly. SENNA (SENOKOT) 8.8 MG/5ML SYRUP 10 mL by Per G Tube route 2 times daily. ALLERGIES Phenylephrine-guaifenesin and Tetanus toxoid FAMILY HISTORY No family history on file. SOCIAL HISTORY Social History Socioeconomic History Marital status: Tobacco Use Smoking status: Former Current packs/day: 0.00 Types: Cigarettes Quit date: 07/13/2013 Years since quittin.5 Vaping Use Vaping status: Never Used Substance and Sexual Activity Alcohol use: No Drug use: No Social Determinants of Health Financial Resource Strain: Low Risk (10/13/2023) Received from [facility], [facility] Overall Financial Resource Strain (CARDIA) Difficulty of Paying Living Expenses: Not hard at all Food Insecurity: No Food Insecurity (10/13/2023) Received from [facility], [facility] Hunger Vital Sign Worried About Running Out of Food in the Last Year: Never true Ran Out of Food in the Last Year: Never true Transportation Needs: No Transportation Needs (08/09/2023) Received from [facility], [facility] PRAPARE - Transportation Lack of Transportation (Medical): No Lack of Transportation (Non-Medical): No Physical Activity: Unknown (07/26/2022) Exercise Vital Sign Minutes of Exercise per Session: 20 min Stress: Stress Concern Present (10/14/2023) Received from [facility], [facility] [place] [facility] - Occupational Stress Questionnaire Feeling of Stress : To some extent Social Connections: Moderately Isolated (10/13/2023) Received from [facility], [facility] Social Connection and Isolation Panel [NHANES] Frequency of Communication with Friends and Family: More than three times a week Frequency of Social Gatherings with Friends and Family: Twice a week Attends Zoroastrian Services: Never Active Member of Clubs or Organizations: No Attends Club or Organization Meetings: Never Marital Status: Living with partner Intimate Partner Violence: Not At Risk (07/26/2022) Humiliation, Afraid, Rape, and Kick questionnaire Fear of Current or Ex-Partner: No Emotionally Abused: No Physically Abused: No Sexually Abused: No Housing Stability: Low Risk (07/26/2022) Housing Stability Vital Sign Unable to Pay for Housing in the Last Year: No Number of Places Lived in the Last Year: 1 Unstable Housing in the Last Year: No SCREENINGS [place] Coma Scale Best Eye Response: Spontaneous Best Verbal Response: Confused Best Motor Response: Follows commands Basil Coma Scale Score: 14 PHYSICAL EXAM ED Triage Vitals Temp Heart Rate Resp BP 01/28/24184901/28/24184901/28/24184901/28/241849 37.7 C (99.8 F) 101 26 110/53 SpO2 Temp Source Heart Rate Source Patient Position 01/28/24184901/28/241849 -- -- 99 % Oral BP Location FiO2 (%) -- 01/28/242024 60 % Physical Exam Constitutional: General: She is not in acute distress. Appearance: Normal appearance. She is ill-appearing. HENT: Head: Normocephalic and atraumatic. Right Ear: External ear normal. Left Ear: External ear normal. Nose: No congestion or rhinorrhea. Mouth/Throat: Mouth: Mucous membranes are moist. Pharynx: Oropharynx is clear. Eyes: Extraocular Movements: Extraocular movements intact. Pupils: Pupils are equal, round, and reactive to light. Cardiovascular: Rate and Rhythm: Normal rate and regular rhythm. Pulses: Normal pulses. Heart sounds: Normal heart sounds. Pulmonary: Effort: Pulmonary effort is normal. No respiratory distress. Breath sounds: Rales present. Comments: Secretions coming from trach site Abdominal: General: Abdomen is flat. There is no distension. Palpations: Abdomen is soft. Tenderness: There is no abdominal tenderness. Musculoskeletal: General: No swelling or deformity. Normal range of motion. Cervical back: Normal range of motion. Skin: General: Skin is warm and dry. Capillary Refill: Capillary refill takes less than 2 seconds. Coloration: Skin is pale. Findings: No rash. Neurological: General: No focal deficit present. Mental Status: She is alert. She is disoriented and confused. Psychiatric: Mood and Affect: Mood normal. Behavior: Behavior normal. DIAGNOSTIC RESULTS RADIOLOGY (Per Emergency Physician): Interpretation per the Radiologist below, if available at the time of this note: XR chest 1 view Final Result No acute cardiopulmonary abnormality. Report Dictated on Electronically Signed By: Saray Rosario MD Electronically Signed Date/Time: 01/28/2024 8:47 PM EDT LABS: Labs Reviewed PHENYTOIN TOTAL - Abnormal Result Value PHENYTOIN, TOTAL <3.0 (*) Narrative: Moderately Hemolyzed. Interpret PHENYTOIN with caution. BLOOD GAS, VENOUS - Abnormal pH, Venous 7.284 (*) pCO2, Venous 87.0 (*) pO2, Venous 43.8 HCO3, Venous 40.3 (*) O2 Sat, Venous 74.1 Base Excess, Venous 10.8 (*) Hgb, blood gas 11.0 TCO2, Venous 43.0 (*) Source Of Oxygen No data Narrative: Assessment of oxygenation is best done with an arterial blood gas determination. Reference ranges for pO2, bicarbonate, and base excess are for mixed venous blood. Specimens drawn from a peripheral vein will often have higher values. CBC WITH AUTO DIFFERENTIAL - Abnormal Auto WBC 11.1 (*) RBC 3.94 Hemoglobin 10.8 (*) Hematocrit 36.5 MCV 92.6 MCH 27.4 MCHC 29.6 (*) RDW 14.3 Platelets 195 MPV 11.6 nRBC 0.0 Neutrophils Relative 79.1 Lymphocytes Relative 9.9 (*) Monocytes Relative 9.7 Eosinophils Relative 0.4 Basophils Relative 0.5 Immature Grans % 0.4 Neutrophils Absolute 8.8 (*) Lymphocytes Absolute 1.1 Monocytes Absolute 1.1 (*) Eosinophils Absolute 0.0 Basophils Absolute 0.1 Immature Grans Absolute 0.1 (*) IPF 4 MAGNESIUM - Normal MAGNESIUM 1.7 Narrative: Moderately Hemolyzed. Interpret Mg with caution. LEGIONELLA AND STREPTOCOCCUS URINE ANTIGEN BLOOD CULTURE BLOOD CULTURE PNEUMONIA PCR PANEL RESPIRATORY PATHOGENS PANEL BY PCR RESPIRATORY CULTURE AND STAIN COMPLETE URINALYSIS COMPREHENSIVE METABOLIC PANEL PROCALCITONIN TEST All other labs were within normal range or not returned as of this dictation. EMERGENCY DEPARTMENT COURSE and DIFFERENTIAL DIAGNOSIS/MDM: Vitals: Vitals: 01/28/24 1850 01/28/24202401/28/242029 BP: 110/53 107/52 Pulse: 101 105 105 Resp: Temp: 37.7 C (99.8 F) TempSrc: Oral SpO2: 99% 99% 96% The patient presented with a chief complaint of status epilepticus. The differential diagnosis associated with this patient's presentation includes breakthrough seizures, status epilepticus, trach problem, altered mental status possibly from CO2 retention. Our workup consisted of ordering/reviewing imaging from prior facility. White count 11.1. VBG showing 7.2 84/87/40 3.8/40.3 this is consistent with respiratory acidosis. Patient is on phenytoin for her seizures and phenytoin level is subtherapeutic today. Given her green secretions there is concern for pneumonia. X-ray is clear however. Patient has been admitted to ICU. Diagnoses as of 01/28/242134 Status epilepticus (CMS/HCC) (HCC) External records reviewed: Records from ED from which patient came Diagnostics interpreted by me: Xray(s) as above Discussions with other clinicians: Estimator Project Manager ICU Chronic conditions impacting care: Seizure disorder, trach patient Social determinants of health affecting care: none ED Medications managed: Medications cefepime (Maxipime) 2,000 mg in sodium chloride 0.9 % 50 mL IVPB Mini-Bag Plus (has no administration in time range) cefepime (Maxipime) 2,000 mg in sodium chloride 0.9 % 50 mL IVPB Mini-Bag Plus (has no administration in time range) ipratropium-albuterol (Duo-Neb) 0.5-2.5 mg/3 mL nebulizer solution 3 mL (3 mL Nebulization Given 01/28/242024) Prescription drugs considered: ativan PROCEDURES: Unless otherwise noted below, none Procedures FINAL IMPRESSION 1. Status epilepticus (CMS/HCC) ([facility]) DISPOSITION Admit 01/28/2024 09:34:51 PM PATIENT REFERRED TO: No follow-up provider specified. DISCHARGE MEDICATIONS: New Prescriptions No medications on file (Comment: Please note this report has been produced using speech recognition software and may contain errors related to that system including errors in grammar, punctuation, and spelling, as well as words and phrases that may be inappropriate. If there are any questions or concerns please feel free to contact the dictating provider for clarification.) KATINA SOSA DO (electronically signed) Emergency Medicine Provider Katina Sosa DO Resident 01/28/242139 Emergency Department Encounter [facility] CTV ICU T1 Patient: Luiza May : 1955 Date of Evaluation: 01/28/2024 ED Supervising Physician: Em Montes MD I independently examined and evaluated Luiza May. In brief, Luiza May is a 68 y.o. female past medical history significant for coronary artery disease, COPD, and stroke with hypertension and asthma who presents to the emergency department for evaluation for seizures. According to EMS patient had 2 seizures by bystanders following which she was taken to [facility]. Upon arrival there patient had another seizure. Patient never seemed to return to baseline as a result of which she was transferred for ICU evaluation. On arrival to the department patient appears confused. Is on oxygen at 2 L for hypoxia appreciated at the outside hospital. Given altered mental status unable to establish any further history from the patient. ED Triage Vitals Temp Heart Rate Resp BP 01/28/24184901/28/24184901/28/24184901/28/241849 37.7 C (99.8 F) 101 26 110/53 SpO2 Temp Source Heart Rate Source Patient Position 01/28/24184901/28/24184901/28/24234401/28/242344 99 % Oral Monitor Sitting BP Location FiO2 (%) 01/28/24234401/28/242024 Right arm 60 % Focused exam: [id number] in no acute distress. Alert and oriented X 2. Lungs clear to auscultation bilaterally with no wheezes or crackles appreciated. Heart rate and rhythm regular with no murmurs. Abdomen soft nontender nondistended with positive bowel sounds. No edema appreciated on the lower extremities bilaterally. Brief ED course/MDM: XR chest 1 view Final Result No acute cardiopulmonary abnormality. Report Dictated on Electronically Signed By: Saray Rosario MD Electronically Signed Date/Time: 01/28/2024 8:47 PM EDT Labs Reviewed PNEUMONIA PCR PANEL - Abnormal Result Value Staphylococcus aureus Detected (*) mecA Detected (*) Streptococcus agalactiae Not Detected Streptococcus pneumoniae Not Detected Streptococcus pyogenes Not Detected Haemophilus influenzae Not Detected Moraxella catarrhalis Detected (*) Acinetobacter baumannii complex Not Detected Enterobacter cloacae complex Not Detected Escherichia coli Not Detected Klebsiella (Enterobacter) aerogenes Not Detected Klebsiella oxytoca Not Detected Klebsiella pneumoniae Not Detected Proteus spp Not Detected Pseudomonas aeruginosa Detected (*) Serratia marcescens Not Detected Chlamydia pneumoniae Not Detected Legionella pneumophila Not Detected Mycoplasma pneumoniae Not Detected Adenovirus Not Detected Coronavirus Not Detected Human Metapneumovirus Not Detected Human Rhinovirus/Enterovirus Not Detected Influenza A Not Detected Influenza B Not Detected Parainfluenza virus Not Detected Respiratory Syncytial Virus Not Detected Narrative: A positive Coronavirus (not SARS-CoV-2) result on the [facility] Pneum[facility] PCR Panel should be taken in the context of other clinical data as increased false positive detection has been noted by the cook night. Consider collecting a nasopharyngeal sample for the Respiratory Pathogens Panel by PCR if clinically indicated. Methodology: Multiplex PCR This panel does not test for SARS-CoV-2 (Covid-19). The following antimicrobial resistance gene is reported if the appropriate organism is detected: mecA. The following antimicrobial resistance genes are reported if detected and the appropriate organisms are detected: CTX-M, IMP, KPC, NDM, OXA-48-like, and VIM. RESPIRATORY CULTURE AND STAIN - Abnormal Respiratory culture Culture in progress Gram Stain Result (*) Value: Moderate Polymorphonuclear leukocytes per low power field Gram Stain Result Few Epithelial cells per low power field (*) Gram Stain Result Few Gram positive cocci (*) Gram Stain Result Few Gram positive bacilli (*) Gram Stain Result Few Gram negative bacilli (*) PHENYTOIN TOTAL - Abnormal PHENYTOIN, TOTAL <3.0 (*) Narrative: Moderately Hemolyzed. Interpret PHENYTOIN with caution. BLOOD GAS, VENOUS - Abnormal pH, Venous 7.284 (*) pCO2, Venous 87.0 (*) pO2, Venous 43.8 HCO3, Venous 40.3 (*) O2 Sat, Venous 74.1 Base Excess, Venous 10.8 (*) Hgb, blood gas 11.0 TCO2, Venous 43.0 (*) Source Of Oxygen No data Narrative: Assessment of oxygenation is best done with an arterial blood gas determination. Reference ranges for pO2, bicarbonate, and base excess are for mixed venous blood. Specimens drawn from a peripheral vein will often have higher values. CBC WITH AUTO DIFFERENTIAL - Abnormal Auto WBC 11.1 (*) RBC 3.94 Hemoglobin 10.8 (*) Hematocrit 36.5 MCV 92.6 MCH 27.4 MCHC 29.6 (*) RDW 14.3 Platelets 195 MPV 11.6 nRBC 0.0 Neutrophils Relative 79.1 Lymphocytes Relative 9.9 (*) Monocytes Relative 9.7 Eosinophils Relative 0.4 Basophils Relative 0.5 Immature Grans % 0.4 Neutrophils Absolute 8.8 (*) Lymphocytes Absolute 1.1 Monocytes Absolute 1.1 (*) Eosinophils Absolute 0.0 Basophils Absolute 0.1 Immature Grans Absolute 0.1 (*) IPF 4 COMPREHENSIVE METABOLIC PANEL - Abnormal SODIUM 140 POTASSIUM 4.4 CHLORIDE 99 CARBON DIOXIDE 38 (*) ANION GAP 4 UREA NITROGEN 19 (*) CREATININE 0.68 GLUCOSE 98 CALCIUM 8.4 AST (SGOT) 22 ALT 11 ALKALINE PHOSPHATASE 76 ALBUMIN 3.6 BILIRUBIN, TOTAL 0.5 TOTAL PROTEIN 6.7 eGFR >90.0 BLOOD CULTURE - Normal Blood Culture Blood culture incubation started Narrative: Blood Collection Site: Right Arm BLOOD CULTURE - Normal Blood Culture Blood culture incubation started Narrative: Blood Collection Site: Right Arm RESPIRATORY PATHOGENS PANEL BY PCR - Normal SARS-CoV-2 Not Detected Adenovirus Not Detected Coronavirus HKU1 Not Detected Coronavirus NL63 Not Detected Coronavirus 229E Not Detected Coronavirus OC43 Not Detected Human Metapneumovirus Not Detected Human Rhinovirus/Enterovirus Not Detected Influenza A Not Detected Influenza B Not Detected Parainfluenza 1 Not Detected Parainfluenza 2 Not Detected Parainfluenza 3 Not Detected Parainfluenza 4 Not Detected Respiratory Syncytial Virus Not Detected Bordetella pertussis Not Detected Bordetella parapertussis Not Detected Chlamydia pneumoniae Not Detected Mycoplasma pneumoniae Not Detected Narrative: Methodology: Multiplex PCR MAGNESIUM - Normal MAGNESIUM 1.7 Narrative: Moderately Hemolyzed. Interpret Mg with caution. PROCALCITONIN TEST CBC WITH AUTO DIFFERENTIAL BASIC METABOLIC PANEL Diagnoses as of 01/29/24 0218 Status epilepticus (CMS/HCC) ([facility]) Presenting for evaluation for seizure activity from an outside hospital. Given presentation differential diagnosis includes status epilepticus versus an infectious process. Patient unlikely with an acute intracranial process. Workup in the department with negative respiratory PCR, mild acidosis with pH of 7.28 with hypercarbia with a pCO2 of 87. Patient with mild leukocytosis, mild anemia, with no electrolyte abnormalities, no renal function impairment, or no transaminitis. Procalcitonin undetectable. Chest x-ray with no infiltrates or consolidations concerning for pneumonia. Patient received 1 DuoNeb in the emergency department. Patient not tolerating tracheostomy mask. Suctioned in the department. Given hypoxia patient was placed on BiPAP. Given multiple seizures critical care medicine was consulted to evaluate the patient. They recommended admitting the patient to the ICU for further evaluation and management. Patient admitted in stable condition. All diagnostic, treatment, and disposition decisions were made by myself in conjunction with the Resident. I also supervised starr portions of any procedures performed by the Resident. For all further details of the patient's emergency department visit, please see their documentation. (Please note that portions of this note may have been completed with a voice recognition program. Efforts were made to edit the dictations but occasionally words are mis-transcribed.) MD Em Mcdaniel-Kinyua, MD 02/13/24103 documented in this encounter [facility] 01-27-2024 Note HNO ID: [id number] Author: JACKIE VALDEZ MA Service: ? Author Type: Crime Lab Analyst Type: Progress Notes Filed: 01/27/2024 09:05 Note Text: POPULATION HEALTH NAVIGATION OUTREACH Action/FYI Letter received and sent to be mailed. Navigation Signature: Jackie Valdez [facility] Navigator January 27, 2024 9:05 AM [facility] 01-26-2024 Telephone encounter Note Patient notified of provider's instructions and refill sent to pharmacy. Patient verbalizes understanding. Patient will call back to schedule this at another date. Ginny Moreland RN [facility] 01-26-2024 Miscellaneous Notes Patient notified of provider's instructions and refill sent to pharmacy. Patient verbalizes understanding. Patient will call back to schedule this at another date. Ginny Moreland RN With her multiple falls resulting in injury, I would like her to see geriatrics. Refilled ambien at this time. Thank you Joan Johnson APRN.JAMES The patient has been identified by name and date of : Yes Caregiver verified no other encounters exist for this prescription request: Yes Caregiver confirmed with patient/requestor that no other refills are due, in the near future, with this provider at this time: Yes The last office visit in the department: 01/03/2024 Does the patient have a future office visit with this provider/department: Yes 03/07/2024 Requested Prescriptions Pending Prescriptions Disp Refills zolpidem (AMBIEN) 10 mg 30 tablet 0 Sig: Take 1 tablet by mouth at bedtime as needed (insomnia) for up to 30 days. Vipin Nobles RN January 25, 2024 4:18 PM documented in this encounter [facility] 01-26-2024 Telephone encounter Note With her multiple falls resulting in injury, I would like her to see geriatrics. Refilled ambien at this time. Thank you Joan Johnson APRN.JAMES [facility] 01-25-2024 Telephone encounter Note The patient has been identified by name and date of : Yes Caregiver verified no other encounters exist for this prescription request: Yes Caregiver confirmed with patient/requestor that no other refills are due, in the near future, with this provider at this time: Yes The last office visit in the department: 01/03/2024 Does the patient have a future office visit with this provider/department: Yes 03/07/2024 Requested Prescriptions Pending Prescriptions Disp Refills zolpidem (AMBIEN) 10 mg 30 tablet 0 Sig: Take 1 tablet by mouth at bedtime as needed (insomnia) for up to 30 days. Vipin Nobles RN January 25, 2024 4:18 PM [facility] 01-24-2024 Note HNO ID: [id number] Author: DARIEN BARNARD MA Service: ? Author Type: Crime Lab Analyst Type: Progress Notes Filed: 01/24/2024 09:04 Note Text: POPULATION HEALTH NAVIGATION OUTREACH Action/FYI Patient is on [facility] CURRENT ROSTER Workbench list for below and needs appointment to address: Spirometry DTaP,Tdap,Td Vaccine(1 - Tdap) Shingrix Vaccine(1 of 2) RSV Vaccine(1 - 1-dose 60+ series) Mammogram Screening Covid-19 Vaccine( season) Advance Directive Discussion Behavioral Health Screening Hemoglobin A1C (%) Date Value 05/06/2023 5.0 11/16/2020 5.4 Patient due for: Medicare Annual Wellness Visit Breast Cancer Screening Advance Directives Attempted to reach patient, voicemail full, unable to leave message. No mychart available. Sent letter. Unable to convert upcoming OV to AWV due to provider schedule conflicts. Updated upcoming OV notes Please address due care gaps and HCC gap closure Reason for Outreach Care Gap/HCC or Scheduling Wellness Visits Care Gaps due: Medicare Annual Wellness Visit Breast Cancer Screening Advance Directives Patient Contacted: Unable or unnecessary to reach patient: Unable to leave message Letter mailed HCC related Updated appointment notes Navigation Signature: Darien Barnard MA January 24, 2024 7:23 AM [facility] 01-24-2024 History of Present illness Narrative POPULATION HEALTH NAVIGATION OUTREACH Action/FYI Patient is on [facility] CURRENT ROSTER Workbench list for below and needs appointment to address: Spirometry DTaP,Tdap,Td Vaccine(1 - Tdap) Shingrix Vaccine(1 of 2) RSV Vaccine(1 - 1-dose 60+ series) Mammogram Screening Covid-19 Vaccine( season) Advance Directive Discussion Behavioral Health Screening Hemoglobin A1C (%) Date Value 05/06/2023 5.0 11/16/2020 5.4 Patient due for: Medicare Annual Wellness Visit Breast Cancer Screening Advance Directives Attempted to reach patient, voicemail full, unable to leave message. No mychart available. Sent letter. Unable to convert upcoming OV to AWV due to provider schedule conflicts. Updated upcoming OV notes Please address due care gaps and HCC gap closure Reason for Outreach Care Gap/HCC or Scheduling Wellness Visits Care Gaps due: Medicare Annual Wellness Visit Breast Cancer Screening Advance Directives Patient Contacted: Unable or unnecessary to reach patient: Unable to leave message Letter mailed HCC related Updated appointment notes Navigation Signature: Darien Barnard MA January 24, 2024 7:23 AM documented in this encounter [facility] 01-24-2024 Note Patient Outreach (NE TNAV) -------- YADIRALUIZA ([id number]) 1955 F Date Time Provider Department 01/24/24 DARIEN BARNARD During your visit today, we recorded the following information about you: Darien Barnard MA 01/24/2024 9:04 AM Signed POPULATION HEALTH NAVIGATION OUTREACH Action/FYI Patient is on [facility] CURRENT ROSTER Workbench list for below and needs appointment to address: Spirometry DTaP,Tdap,Td Vaccine(1 - Tdap) Shingrix Vaccine(1 of 2) RSV Vaccine(1 - 1-dose 60+ series) Mammogram Screening Covid-19 Vaccine( season) Advance Directive Discussion Behavioral Health Screening Hemoglobin A1C (%) Date Value 05/06/2023 5.0 11/16/2020 5.4 Patient due for: Medicare Annual Wellness Visit Breast Cancer Screening Advance Directives Attempted to reach patient, voicemail full, unable to leave message. No mychart available. Sent letter. Unable to convert upcoming OV to AWV due to provider schedule conflicts. Updated upcoming OV notes Please address due care gaps and HCC gap closure Reason for Outreach Care Gap/HCC or Scheduling Wellness Visits Care Gaps due: Medicare Annual Wellness Visit Breast Cancer Screening Advance Directives Patient Contacted: Unable or unnecessary to reach patient: Unable to leave message Letter mailed HCC related Updated appointment notes Navigation Signature: Darien Barnard MA January 24, 2024 7:23 AM Jackie Valdez MA 01/27/2024 9:05 AM Signed POPULATION HEALTH NAVIGATION OUTREACH Action/FYI Letter received and sent to be mailed. Navigation Signature: Jackie Valdez Population Health Navigator January 27, 2024 9:05 AM Allergies As of Date: 01/24/2024 Noted Allergy Reaction ENTEX (PHENYLEPHRINE-GUAIFENESIN) 04/22/2005 5 - Intolerance TETANUS VACCINES AND TOXOID 04/22/2005 7 - Swelling Date Reviewed: 01/03/2024 Reviewed by: Lisette Corona LPN - Fully Assessed Reason for Visit: Population Health Navigation Outreach [3910] Cmt: Arlet Ventura - Ellyn [facility] Prescriptions as of 01/27/2024 - zolpidem (AMBIEN) 10 mg Take 1 tablet by mouth at bedtime as needed (insomnia) for up to 30 days. Do not start before January 28, 2024. - furosemide (LASIX) 20 mg tablet Take 1 tablet by mouth two times a day. - Cholecalciferol, Vitamin D3, 25 mcg (1,000 unit) cap Take 1 capsule by mouth once daily. - DULoxetine (CYMBALTA) 60 mg capsule Take 1 capsule by mouth once daily. - folic acid 1 mg tablet Take 1 tablet by mouth once daily. - pantoprazole DR (PROTONIX) 40 mg tablet Take 1 tablet by mouth daily before breakfast. Take on empty stomach, 1/2 hr before meal. - potassium chloride ER (KLOR-CON) 20 mEq tablet Take 1 tablet by mouth two times a day. - atorvastatin (LIPITOR) 40 mg tablet Take 1 tablet by mouth once daily. - metoprolol succinate ER (TOPROL XL) 25 mg 24 hr tablet Take 1 tablet by mouth once daily. - acetaminophen (TYLENOL) 325 mg tablet 2 tablets by ORAL/FEEDING TUBE route every 4 hours as needed for pain. - ipratropium-albuterol (DUONEB) 0.5 mg-3 mg(2.5 mg base)/3 mL nebu INHALE 1 vial via NEBULIZER EVERY 6 HOURS while awake - albuterol (PROVENTIL) 2.5 mg /3 mL (0.083 %) nebulizer solution Use 2.5 mg via nebulizer as directed. - albuterol HFA (PROAIR HFA) 90 mcg/actuation inhaler Inhale 2 Puffs as instructed every 6 hours as needed. - MEDICAL SUPPLY Portable oxygen cylinders Meds Comments as of 08/11/2023: 08/11/23 The medications are managed by this patient by: PATIENT Seth Chawla [facility] Problem List As Of Date 01/24/2024 Noted Resolved COUGH [R05.9] 04/01/2006 05/03/2006 OBST CHRON BRONCHITIS WITH EXAC [J44.1] 05/03/2006 VIRAL PNEUMONIA NOS [J12.9] 05/03/2006 Panlobular emphysema (HCC) [J43.1] 05/03/2006 Chronic pulmonary heart disease (HCC) [I27.9] 05/03/2006 10/01/2022 ABN BLOOD CHEMISTRY NEC [R79.89] 05/03/2006 BENIGN NEOPLASM LG BOWEL [D12.6] 06/09/2006 Nonspecific abnormal finding in stool contents *06/09/2006 01/03/2024 SHOULDER REGION DIS NEC [M25.819] 09/14/2007 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] 11/29/2007 Inflamed seborrheic keratosis [L82.0] 12/19/2008 01/03/2024 Viral warts, unspecified [B07.9] 12/19/2008 01/03/2024 Other chronic dermatitis due to solar radiation*12/19/2008 01/03/2024 SOLAR LENTIGENES///DYSCHROMIA OTHER [L81.9] 12/19/2008 01/03/2024 Other seborrheic keratosis [L82.1] 12/19/2008 01/03/2024 Unspecified hypertrophic and atrophic condition*12/19/2008 01/03/2024 Insomnia [G47.00] 02/18/2013 Anxiety [F41.9] 02/18/2013 COPD (chronic obstructive pulmonary disease) (H*08/11/2016 Chronic hypercapnic respiratory failure (HCC) [*08/19/2022 Hemorrhagic stroke (HCC) [I61.9] 10/01/2022 01/03/2024 Acute deep vein thrombosis (DVT) of distal vein*11/03/2022 01/03/2024 Acute subdural hematoma (HCC) [S06.5XAA] 11/03/2022 01/03/2024 Seizure- (more content not included)... [facility] 01-21-2024 Telephone encounter Note [facility]oke with [facility] and patient did confirm with pharmacy that she is no longer taking phenytoin. [facility] 01-21-2024 Miscellaneous Notes Spoke with [facility] and patient did confirm with pharmacy that she is no longer taking phenytoin. Phone call to [facility] to inform that our records show pt not taking on 12/02/23. Pharmacy states they last delivered on 12/13/23. [facility] will call patient to confirm that she is not taking. [facility] will return call to our office to inform if patient taking or not. Joanie Barclay MA [facility] in [place] calling for a refill of Rx Phenytoin (not seen in current refill list). Any questions please call them at [phone] documented in this encounter [facility] 01-20-2024 Telephone encounter Note Maurice Delgado nurse with [facility] called and is notified of providers results and instructions. Pt voices understanding. Rachel Rudd RN [facility] 01-20-2024 Miscellaneous Notes Maurice Delgado nurse with [facility] called and is notified of providers results and instructions. Pt voices understanding. Rachel Rudd RN PCP agreeable to follow and sign. Thank you Joan Johnson APRN.AGRICULTURE WORKER Maurice Delgado nurse with [facility] calling to confirm that provider will continue to follow and sign orders for pt for half-way. Please call Maurice back after provider review and confirmation. documented in this encounter [facility] 01-20-2024 Telephone encounter Note PCP agreeable to follow and sign. Thank you Jaon Johnson APRN.JAMES [facility] 01-20-2024 Telephone encounter Note Maurice Delgado nurse with [facility] calling to confirm that provider will continue to follow and sign orders for pt for half-way. Please call Maurice back after provider review and confirmation. [facility] 01-19-2024 Telephone encounter Note Phone call to [facility]'s pharmacy to inform that our records show pt not taking on 12/02/23. Pharmacy states they last delivered on 12/13/23. [facility] will call patient to confirm that she is not taking. [facility] will return call to our office to inform if patient taking or not. Joanie Barclay MA [facility] 01-19-2024 Telephone encounter Note [facility]'s pharmacy in [place] calling for a refill of Rx Phenytoin (not seen in current refill list). Any questions please call them at [phone] [facility] 01-07-2024 Telephone encounter Note Called Ameena, patient's daughter. She stated she was able to get an appointment locally for trach decannulation. She defers appointment with our IP team at [facility] at this time. Ameena was thankful for the call back and will call our office if there any any issues or questions. Adriane Riley APRN.CNP January 07, 2024 3:20 PM [facility] 01-07-2024 Miscellaneous Notes Called Ameena, patient's daughter. She stated she was able to get an appointment locally for trach decannulation. She defers appointment with our IP team at [facility] at this time. Ameena was thankful for the call back and will call our office if there any any issues or questions. Adriane Riley APRN.CNP January 07, 2024 3:20 PM Luiza's daughter called again this morning, very upset that she still has not hear anything back regarding having her mother's trach removed. Advised that I would be happy to send another note along, but it would be up to the office to return her call, I cannot schedule for them. She voiced understanding. Patsy Sagastume RN January 05, 2024 11:45 AM Patient called and self referring. She is looking to have her trach removed. documented in this encounter [facility] 01-05-2024 Telephone encounter Note Luiza's daughter called again this morning, very upset that she still has not hear anything back regarding having her mother's trach removed. Advised that I see where she call yesterday and a message was sent to the pulmonary department, and I would be happy to send another note along, but it would be up to the office to return her call, I cannot schedule for them. Also, reviewing Dr. Ca' note of 01/03/2024, it appears that he has referred her to [facility], which we are not able to schedule with. She voiced understanding. Additional message sent to the pulmonary department. Patsy Mitesh, RN [facility] [facility] 01-05-2024 Miscellaneous Notes Luiza's daughter called again this morning, very upset that she still has not hear anything back regarding having her mother's trach removed. Advised that I see where she call yesterday and a message was sent to the pulmonary department, and I would be happy to send another note along, but it would be up to the office to return her call, I cannot schedule for them. Also, reviewing Dr. Ca' note of 01/03/2024, it appears that he has referred her to ENT and [facility], which we are not able to schedule with. She voiced understanding. Additional message sent to the pulmonary department. Patsy Sagastume RN Pts daughter called regarding removal of Trach. She is not sure who is supposed to do it. ENT office does not remove trachs. She thinks she is waiting on a call from someone but does not know who is helping get this accomplished as she has not heard back. Does Dr. Hdz removed them. Please advise pts daughter, Ameena. documented in this encounter [facility] 01-05-2024 Telephone encounter Note Luiza's daughter called again this morning, very upset that she still has not hear anything back regarding having her mother's trach removed. Advised that I would be happy to send another note along, but it would be up to the office to return her call, I cannot schedule for them. She voiced understanding. Patsy Sagastume RN January 05, 2024 11:45 AM [facility] 01-05-2024 Telephone encounter Note Pts daughter called regarding removal of Trach. She is not sure who is supposed to do it. ENT office does not remove trachs. She thinks she is waiting on a call from someone but does not know who is helping get this accomplished as she has not heard back. Does Dr. Hdz removed them. Please advise pts daughter, Ameena. [facility] Work Phone: 01-04-2024 Telephone encounter Note Pt was seen by Dr. Herman yesterday. She is calling to state she would like her tracheostomy removed.This was discussed at OV yesterday and pt was advised by provider. Pt calling this morning to state her brother spoke with an ENT office yesterday and they state they do not remove tracheostomies. Pt was not able to give more details than that. This nurse advised pt to make appt with ENT as advised by provider yesterday. 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 Pt to see [facility] as advised by provider yesterday, as well. Gisell Schumacher RN [facility] 01-04-2024 Miscellaneous Notes Pt was seen by Dr. Herman yesterday. She is calling to state she would like her tracheostomy removed.This was discussed at OV yesterday and pt was advised by provider. Pt calling this morning to state her brother spoke with an ENT office yesterday and they state they do not remove tracheostomies. Pt was not able to give more details than that. This nurse advised pt to make appt with ENT as advised by provider yesterday. 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 Pt to see [facility] as advised by provider yesterday, as well. Gisell Schumacher RN documented in this encounter [facility] 01-04-2024 Telephone encounter Note Patient called and self referring. She is looking to have her trach removed. [facility] 01-03-2024 Note HNO ID: [id number] Author: ISSA HERMAN MD Service: ? Author Type: Physician Type: Progress Notes Filed: 01/03/2024 15:05 Note Text: This note was created using NoteWriter. Subjective Luiza May is a 68 year old female. PCP Maryam Franco MD. She was here with her significant other. She initially stated she had not been to ENT, but partner indicated they were there a few weeks ago. Tracheostomy was not removed, reason was not clear. She was supposed to see her [facility], but was unable to schedule, possibly because Dr. Duarte relocated. They had no other concerns. Dr. Hdz removed PEG tube and that was fine. Review of Systems Constitutional: Negative for appetite change, chills and fever. HENT: Negative for trouble swallowing. Respiratory: Negative. 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 Do not start before January 01, 2024. furosemide (LASIX) 20 mg tablet Take 1 tablet by mouth two times a day. Cholecalciferol, Vitamin D3, 25 mcg (1,000 unit) cap Take 1 capsule by mouth once daily. DULoxetine (CYMBALTA) 60 mg capsule Take 1 capsule by mouth once daily. folic acid 1 mg tablet Take 1 tablet by mouth once daily. pantoprazole DR (PROTONIX) 40 mg tablet Take 1 tablet by mouth daily before breakfast. Take on empty stomach, 1/2 hr before meal. potassium chloride ER (KLOR-CON) 20 mEq tablet Take 1 tablet by mouth two times a day. atorvastatin (LIPITOR) 40 mg tablet Take 1 tablet by mouth once daily. metoprolol succinate ER (TOPROL XL) 25 mg 24 hr tablet Take 1 tablet by mouth once daily. acetaminophen (TYLENOL) 325 mg tablet 2 tablets by ORAL/FEEDING TUBE route every 4 hours as needed for pain. ipratropium-albuterol (DUONEB) 0.5 mg-3 mg(2.5 mg base)/3 mL nebu INHALE 1 vial via NEBULIZER EVERY 6 HOURS while awake albuterol (PROVENTIL) 2.5 mg /3 mL (0.083 %) nebulizer solution Use 2.5 mg via nebulizer as directed. albuterol HFA (PROAIR HFA) 90 mcg/actuation inhaler Inhale 2 Puffs as instructed every 6 hours as needed. MEDICAL SUPPLY Portable oxygen cylinders No current facility-administered medications for this visit. Objective BP 104/66 (BP Site: Left Arm, BP Position: Sitting, BP Cuff Size: Large Adult) Pulse 76 Temp 37.1 ?C (98.7 ?F) (Temporal) Resp 20 Wt 58.5 kg (129 lb) LMP 02/11/2006 SpO2 99% BMI 22.85 kg/m? Physical Exam Constitutional: General: She is not in acute distress. Neck: Comments: Tracheostomy in place. Pulmonary: Effort: No respiratory distress. Breath sounds: No wheezing, rhonchi or rales. Musculoskeletal: Right lower leg: No edema. Left lower leg: No edema. Neurological: Mental Status: She is alert. Gait: Gait normal. Assessment and Plan 1. 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 2. Anxiety - ICD9: 300.00, ICD10: F41.9 Controlled. 3. Chronic obstructive pulmonary disease, unspecified COPD type (HCC) - ICD9: 496, ICD10: J44.9 See [facility]. They may need to address #1. Issa Herman MD [facility] 01-03-2024 History of Present illness Narrative This note was created using NoteWriter. Subjective Luiza May is a 68 year old female. PCP Maryam Franco MD. She was here with her significant other. She initially stated she had not been to ENT, but partner indicated they were there a few weeks ago. Tracheostomy was not removed, reason was not clear. She was supposed to see her [facility], but was unable to schedule, possibly because Dr. Duarte relocated. They had no other concerns. Dr. Hdz removed PEG tube and that was fine. Review of Systems Constitutional: Negative for appetite change, chills and fever. HENT: Negative for trouble swallowing. Respiratory: Negative. 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 Do not start before January 01, 2024. furosemide (LASIX) 20 mg tablet Take 1 tablet by mouth two times a day. Cholecalciferol, Vitamin D3, 25 mcg (1,000 unit) cap Take 1 capsule by mouth once daily. DULoxetine (CYMBALTA) 60 mg capsule Take 1 capsule by mouth once daily. folic acid 1 mg tablet Take 1 tablet by mouth once daily. pantoprazole DR (PROTONIX) 40 mg tablet Take 1 tablet by mouth daily before breakfast. Take on empty stomach, 1/2 hr before meal. potassium chloride ER (KLOR-CON) 20 mEq tablet Take 1 tablet by mouth two times a day. atorvastatin (LIPITOR) 40 mg tablet Take 1 tablet by mouth once daily. metoprolol succinate ER (TOPROL XL) 25 mg 24 hr tablet Take 1 tablet by mouth once daily. acetaminophen (TYLENOL) 325 mg tablet 2 tablets by ORAL/FEEDING TUBE route every 4 hours as needed for pain. ipratropium-albuterol (DUONEB) 0.5 mg-3 mg(2.5 mg base)/3 mL nebu INHALE 1 vial via NEBULIZER EVERY 6 HOURS while awake albuterol (PROVENTIL) 2.5 mg /3 mL (0.083 %) nebulizer solution Use 2.5 mg via nebulizer as directed. albuterol HFA (PROAIR HFA) 90 mcg/actuation inhaler Inhale 2 Puffs as instructed every 6 hours as needed. MEDICAL SUPPLY Portable oxygen cylinders No current facility-administered medications for this visit. Objective BP 104/66 (BP Site: Left Arm, BP Position: Sitting, BP Cuff Size: Large Adult) Pulse 76 Temp 37.1 C (98.7 F) (Temporal) Resp 20 Wt 58.5 kg (129 lb) LMP 02/11/2006 SpO2 99% BMI 22.85 kg/m Physical Exam Constitutional: General: She is not in acute distress. Neck: Comments: Tracheostomy in place. Pulmonary: Effort: No respiratory distress. Breath sounds: No wheezing, rhonchi or rales. Musculoskeletal: Right lower leg: No edema. Left lower leg: No edema. Neurological: Mental Status: She is alert. Gait: Gait normal. Assessment and Plan 1. 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 2. Anxiety - ICD9: 300.00, ICD10: F41.9 Controlled. 3. Chronic obstructive pulmonary disease, unspecified COPD type (HCC) - ICD9: 496, ICD10: J44.9 See [facility]. They may need to address #1. Issa Herman MD documented in this encounter [facility] 12-30-2023 Telephone encounter Note Prescription sent as requested. Joan Johnson APRN.CNP PDMP website checked and validated. All prescriptions have been APPROPRIATELY filled. No suspicious activity was identified. 12/30/2023 by Joan Johnson APRN.CNP [facility] 12-30-2023 Miscellaneous Notes Prescription sent as requested. Joan Johnson APRN.CNP PDMP website checked and validated. All prescriptions have been APPROPRIATELY filled. No suspicious activity was identified. 12/30/2023 by Joan Johnson APRN.CNP Pharmacy notified and prescription cancelled. Tried calling Pharmacy, closed for lunch. Will try back after 1 Please call [facility] to cancel already sent prescription [facility]. Thank you Joan Johnson APRN.CNP Pended Rx to correct Pharmacy. Update pt once sent. Lorrie Allen MA Patient's Ambien Rx was sent to [place] [facility] with a fill date of 01/01/24. Patient wants to know if it can be switched to [facility] in [place]. documented in this encounter [facility] 12-30-2023 Telephone encounter Note Pharmacy notified and prescription cancelled. [facility] 12-30-2023 Telephone encounter Note Tried calling Pharmacy, closed for lunch. Will try back after 1 [facility] 12-30-2023 Telephone encounter Note Please call [facility] to cancel already sent prescription [facility] to [facility]. Thank you Joan Johnson APRN.CNP [facility] 12-30-2023 Telephone encounter Note Pended Rx to correct Pharmacy. Update pt once sent. Lorrie Allen MA T [facility] 12-30-2023 Telephone encounter Note Patient's Ambien Rx was sent to [place] [facility] with a fill date of 01/01/24. Patient wants to know if it can be switched to [facility] in [place]. [facility] 12-30-2023 Telephone encounter Note Prescription Refill Information The patient has been identified by name and date of : Yes Caregiver verified no other encounters exist for this prescription request: Yes Caregiver confirmed with patient/requestor that no other refills are due, in the near future, with this provider at this time: Yes The last office visit in the department: 12/02/23 Does the patient have a future office visit with this provider/department: Yes Requested Prescriptions Pending Prescriptions Disp Refills zolpidem (AMBIEN) 10 mg 30 tablet 0 Sig: Take 1 tablet by mouth at bedtime as needed (insomnia) for up to 30 days. Do not start before January 01, 2024. Irena Norton LPN December 30, 2023 7:54 AM [facility] 12-30-2023 Miscellaneous Notes Prescription Refill Information The patient has been identified by name and date of : Yes Caregiver verified no other encounters exist for this prescription request: Yes Caregiver confirmed with patient/requestor that no other refills are due, in the near future, with this provider at this time: Yes The last office visit in the department: 12/02/23 Does the patient have a future office visit with this provider/department: Yes Requested Prescriptions Pending Prescriptions Disp Refills zolpidem (AMBIEN) 10 mg 30 tablet 0 Sig: Take 1 tablet by mouth at bedtime as needed (insomnia) for up to 30 days. Do not start before January 01, 2024. Irena Norton LPN December 30, 2023 7:54 AM Prescription Refill Information The patient has been identified by name and date of : Yes Caregiver verified no other encounters exist for this prescription request: Yes Caregiver confirmed with patient/requestor that no other refills are due, in the near future, with this provider at this time: Yes The last office visit in the department: 12/02/2023 Does the patient have a future office visit with this provider/department: Yes Requested Prescriptions Pending Prescriptions Disp Refills zolpidem (AMBIEN) 10 mg 30 tablet 0 Sig: Take 1 tablet by mouth at bedtime as needed (insomnia) for up to 30 days. Do not start before January 01, 2024. Izabela Charles December 29, 2023 6:22 PM documented in this encounter [facility] 12-29-2023 Telephone encounter Note Prescription Refill Information The patient has been identified by name and date of : Yes Caregiver verified no other encounters exist for this prescription request: Yes Caregiver confirmed with patient/requestor that no other refills are due, in the near future, with this provider at this time: Yes The last office visit in the department: 12/02/2023 Does the patient have a future office visit with this provider/department: Yes Requested Prescriptions Pending Prescriptions Disp Refills zolpidem (AMBIEN) 10 mg 30 tablet 0 Sig: Take 1 tablet by mouth at bedtime as needed (insomnia) for up to 30 days. Do not start before January 01, 2024. Izabela Charles December 29, 2023 6:22 PM [facility] 12-27-2023 Telephone encounter Note PDMP website checked and validated. All prescriptions have been APPROPRIATELY filled. No suspicious activity was identified. 12/27/2023 by Joan Johnson APRN.AGRICULTURE WORKER [facility] 12-27-2023 Miscellaneous Notes PDMP website checked and validated. All prescriptions have been APPROPRIATELY filled. No suspicious activity was identified. 12/27/2023 by Joan Johnson APRN.JAMES Prescription Refill Information The patient has been identified by name and date of : Yes Caregiver verified no other encounters exist for this prescription request: Yes Caregiver confirmed with patient/requestor that no other refills are due, in the near future, with this provider at this time: Yes The last office visit in the department: 12/02/23 Does the patient have a future office visit with this provider/department: Yes Requested Prescriptions Pending Prescriptions Disp Refills zolpidem (AMBIEN) 10 mg 30 tablet 0 Sig: Take 1 tablet by mouth at bedtime as needed (insomnia) for up to 30 days. Irena Norton LPN December 24, 2023 3:31 PM Prescription Refill Information The patient has been identified by name and date of : Yes Caregiver verified no other encounters exist for this prescription request: Yes Caregiver confirmed with patient/requestor that no other refills are due, in the near future, with this provider at this time: Yes The last office visit in the department: 12-02-23 Does the patient have a future office visit with this provider/department: Yes Requested Prescriptions Pending Prescriptions Disp Refills zolpidem (AMBIEN) 10 mg 30 tablet 0 Sig: Take 1 tablet by mouth at bedtime as needed (insomnia) for up to 30 days. Jackie Magaña December 24, 2023 2:48 PM documented in this encounter [facility] 12-24-2023 Note HNO ID: [id number] Author: DEX HDZ MD Service: ? Author Type: Physician Type: Progress Notes Filed: 12/24/2023 17:02 Note Text: FOLLOW UP VISIT - PEG TUBE REMOVAL NAME: Luiza Brown [facility] NO.: [id number] DATE OF SERVICE: 12/24/2023 : 1955 REFERRING PHYSICIAN: Maryam Franco MD Luiza is a patient who had a PEG tube and tracheostomy placed for respiratory failure on October 04, 2023 the patient has a history of advanced COPD oxygen dependency and had pulmonary decompensation requiring the above procedures. The patient currently no longer requires PEG tube feeding - she is currently eating without difficulty. She also is asking for her tracheostomy tube to be removed. This is capped and she is able to talk around it but it has not been removed and it was the original tracheostomy with the balloon currently deflated. This was placed at [facility]. She has an appointment with pulmonary at [facility] on January 12 she tells me. Luiza presents for PEG tube removal. The patient was referred by Dr. Herman for PEG removal VITALS: Pulse 80, temperature 36.6 ?C (97.9 ?F), height 160 cm (5' 3 ), weight 59 kg (130 lb), last menstrual period 02/11/2006, SpO2 90%. On examination, the PEG tube site is clean and intact. PROCEDURE: PEG TUBE REMOVAL The risks, benefits and anticipated outcomes of the procedure, the risks and benefits of the alternatives to the procedure, and the roles and tasks of the personnel to be involved, were discussed with the patient, and the patient consents to the procedure and agrees to proceed. Yen traction was placed on the PEG tube. It was removed without difficulty. There was no bleeding from the PEG tube site. A dressing was applied. Assessment IMPRESSION: Status post PEG tube removal PLAN: If the patient notes any problems, abdominal pain or signs of wound infections, she should contact me immediately. We discussed that liquid or gastric contents may leak from the site for a few days. I discussed with her that if she still has protuberant granulation tissue in a few weeks she could return and we would silver nitrate the area. I discussed with her that I am uncomfortable trying to remove the tracheostomy site in the office without airway supplies in case a tracheostomy tube or endotracheal tube need to be reinserted I recommend she follow-up with the pulmonary appointment for removal. Diagnoses: (J44.9) Chronic obstructive pulmonary disease, unspecified COPD type (HCC) (primary encounter diagnosis) (Z93.1) 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) This note was forwarded to DR. Herman Return to Clinic: The patient is instructed to follow-up with me as needed. Dex Hdz MD [facility] 12-24-2023 History of Present illness Narrative FOLLOW UP VISIT - PEG TUBE REMOVAL NAME: Luiza May [facility] NO.: [id number] DATE OF SERVICE: 12/24/2023 : 1955 REFERRING PHYSICIAN: Maryam Franco MD Luiza is a patient who had a PEG tube and tracheostomy placed for respiratory failure on October 04, 2023 the patient has a history of advanced COPD oxygen dependency and had pulmonary decompensation requiring the above procedures. The patient currently no longer requires PEG tube feeding - she is currently eating without difficulty. She also is asking for her tracheostomy tube to be removed. This is capped and she is able to talk around it but it has not been removed and it was the original tracheostomy with the balloon currently deflated. This was placed at [facility]. She has an appointment with pulmonary at [facility] on January 12 she tells me. Luiza presents for PEG tube removal. The patient was referred by Dr. Herman for PEG removal VITALS: Pulse 80, temperature 36.6 C (97.9 F), height 160 cm (5' 3 ), weight 59 kg (130 lb), last menstrual period 02/11/2006, SpO2 90%. On examination, the PEG tube site is clean and intact. PROCEDURE: PEG TUBE REMOVAL The risks, benefits and anticipated outcomes of the procedure, the risks and benefits of the alternatives to the procedure, and the roles and tasks of the personnel to be involved, were discussed with the patient, and the patient consents to the procedure and agrees to proceed. Yen traction was placed on the PEG tube. It was removed without difficulty. There was no bleeding from the PEG tube site. A dressing was applied. Assessment IMPRESSION: Status post PEG tube removal PLAN: If the patient notes any problems, abdominal pain or signs of wound infections, she should contact me immediately. We discussed that liquid or gastric contents may leak from the site for a few days. I discussed with her that if she still has protuberant granulation tissue in a few weeks she could return and we would silver nitrate the area. I discussed with her that I am uncomfortable trying to remove the tracheostomy site in the office without airway supplies in case a tracheostomy tube or endotracheal tube need to be reinserted I recommend she follow-up with the pulmonary appointment for removal. Diagnoses: (J44.9) Chronic obstructive pulmonary disease, unspecified COPD type (HCC) (primary encounter diagnosis) (Z93.1) 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) This note was forwarded to DR. Herman Return to Clinic: The patient is instructed to follow-up with me as needed. Dex Hdz MD documented in this encounter [facility] 12-24-2023 Telephone encounter Note Prescription Refill Information The patient has been identified by name and date of : Yes Caregiver verified no other encounters exist for this prescription request: Yes Caregiver confirmed with patient/requestor that no other refills are due, in the near future, with this provider at this time: Yes The last office visit in the department: 12/02/23 Does the patient have a future office visit with this provider/department: Yes Requested Prescriptions Pending Prescriptions Disp Refills zolpidem (AMBIEN) 10 mg 30 tablet 0 Sig: Take 1 tablet by mouth at bedtime as needed (insomnia) for up to 30 days. Irena Norton LPN December 24, 2023 3:31 PM [facility] 12-24-2023 Nurse Note REVIEW OF SYSTEMS: General: The patient NOTES fatigue, denies weight loss, denies weight gain, denies feeling hot, and denies feelings of cold. Eyes: The patient denies glaucoma, denies eye injury/surgery, wears glasses or contacts. Ear/Nose/Throat: The patient NOTES allergies, denies hayfever, denies ear infections, and denies bloody noses. Cardiovascular: The patient denies chest pain, NOTES heart disease, denies high blood pressure,denies cardiac stent, NOTES prior heart attack, denies irregular heart beat, denies high cholesterol, denies poor circulation, NOTES heart failure, other cardiac issues, denies claudication, denies cold feet, denies peripheral arterial stent. Respiratory: The patient denies tuberculosis, NOTES pneumonia, NOTES frequent cough, denies pulmonary embolism, denies shortness of breath, and denies coughing up blood. Gastrointestinal: The patient denies difficulty swallowing, denies acid reflux, denies ulcers, denies vomiting, denies jaundice/hepatitis, NOTES gallbladder problems, denies black or tarry stools, denies hemorrhoids, denies bleeding from rectum, denies diverticulitis, denies constipation, denies diarrhea, denies loss of stool control, and denies hernias. Kidney/Bladder: The patient denies kidney stones, NOTES urine infections, and denies bloody urine. Skin: The patient denies a history of skin cancer, denies bleeding/changing moles, and denies a history of skin rash. Neurologic: The patient denies a history of epilepsy/convulsions, denies headaches, denies head/spinal injuries, and NOTES stroke/TIA. Psychiatric: The patient denies psychiatric medications, NOTES depression, and denies voices, denies substance abuse. Endocrine: The patient denies thyroid disorders, denies diabetes, and denies hormonal problems. Hematologic: The patient denies a history of bruising, denies bleeding, and denies anemia, denies blood clots. Infections: The patient denies a history of measles and mumps, denies rheumatic fever, and denies sexually transmitted diseases. Musculoskeletal: The patient denies back pain/injury, denies back problems, denies sciatica, denies knee/foot trouble, denies arthritis, or denies gout. When was patient's last Mammogram screening? Unknown Last Colonoscopy: 2016 Patsy Sagastume RN [facility] 12-24-2023 Nurse Note REVIEW OF SYSTEMS: General: The patient NOTES fatigue, denies weight loss, denies weight gain, denies feeling hot, and denies feelings of cold. Eyes: The patient denies glaucoma, denies eye injury/surgery, wears glasses or contacts. Ear/Nose/Throat: The patient NOTES allergies, denies hayfever, denies ear infections, and denies bloody noses. Cardiovascular: The patient denies chest pain, NOTES heart disease, denies high blood pressure,denies cardiac stent, NOTES prior heart attack, denies irregular heart beat, denies high cholesterol, denies poor circulation, NOTES heart failure, other cardiac issues, denies claudication, denies cold feet, denies peripheral arterial stent. Respiratory: The patient denies tuberculosis, NOTES pneumonia, NOTES frequent cough, denies pulmonary embolism, denies shortness of breath, and denies coughing up blood. Gastrointestinal: The patient denies difficulty swallowing, denies acid reflux, denies ulcers, denies vomiting, denies jaundice/hepatitis, NOTES gallbladder problems, denies black or tarry stools, denies hemorrhoids, denies bleeding from rectum, denies diverticulitis, denies constipation, denies diarrhea, denies loss of stool control, and denies hernias. Kidney/Bladder: The patient denies kidney stones, NOTES urine infections, and denies bloody urine. Skin: The patient denies a history of skin cancer, denies bleeding/changing moles, and denies a history of skin rash. Neurologic: The patient denies a history of epilepsy/convulsions, denies headaches, denies head/spinal injuries, and NOTES stroke/TIA. Psychiatric: The patient denies psychiatric medications, NOTES depression, and denies voices, denies substance abuse. Endocrine: The patient denies thyroid disorders, denies diabetes, and denies hormonal problems. Hematologic: The patient denies a history of bruising, denies bleeding, and denies anemia, denies blood clots. Infections: The patient denies a history of measles and mumps, denies rheumatic fever, and denies sexually transmitted diseases. Musculoskeletal: The patient denies back pain/injury, denies back problems, denies sciatica, denies knee/foot trouble, denies arthritis, or denies gout. When was patient's last Mammogram screening? Unknown Last Colonoscopy: 2016 Patsy Mitesh, RN documented in this encounter [facility] 12-24-2023 Telephone encounter Note Prescription Refill Information The patient has been identified by name and date of : Yes Caregiver verified no other encounters exist for this prescription request: Yes Caregiver confirmed with patient/requestor that no other refills are due, in the near future, with this provider at this time: Yes The last office visit in the department: 12-02-23 Does the patient have a future office visit with this provider/department: Yes Requested Prescriptions Pending Prescriptions Disp Refills zolpidem (AMBIEN) 10 mg 30 tablet 0 Sig: Take 1 tablet by mouth at bedtime as needed (insomnia) for up to 30 days. Jackie Magaña December 24, 2023 2:48 PM [facility] 12-21-2023 Telephone encounter Note Maurice notified. [facility] 12-21-2023 Miscellaneous Notes Maurice notified. Okay for nystatin powder with dressing changes Lise Major APRN.[employer] Maurice from [facility] calling half-way visits will remain 2 times weekly for 6 weeks. Trying to educate patient to keep dressing around her G-tube. Area surrounding G-tube is red and irritated, nursing is using nystatin powder with dressing changes, if that is alright with the provider? Aware patient has General Surgery appt on Wednesday12/24/2023. Please advise documented in this encounter [facility] 12-21-2023 Telephone encounter Note Okay for nystatin powder with dressing changes Lise Major APRN.JAMES [facility] Work Phone: 12-21-2023 Telephone encounter Note Maurice from [facility] calling half-way visits will remain 2 times weekly for 6 weeks. Trying to educate patient to keep dressing around her G-tube. Area surrounding G-tube is red and irritated, nursing is using nystatin powder with dressing changes, if that is alright with the provider? Aware patient has General Surgery appt on Wednesday12/24/2023. Please advise [facility] 12-17-2023 Telephone encounter Note Requested Prescriptions Refused Prescriptions Disp Refills zolpidem (AMBIEN) 10 mg 30 tablet 0 Sig: Take 1 tablet by mouth at bedtime as needed (insomnia) for up to 30 days. Refused By: ISSA HERMAN Reason for Refusal: Patient needs appointment Issa Herman MD [facility] 12-17-2023 Miscellaneous Notes Requested Prescriptions Refused Prescriptions Disp Refills zolpidem (AMBIEN) 10 mg 30 tablet 0 Sig: Take 1 tablet by mouth at bedtime as needed (insomnia) for up to 30 days. Refused By: ISSA HERMAN Reason for Refusal: Patient needs appointment Issa Herman MD The patient has been identified by name and date of : Yes Caregiver verified no other encounters exist for this prescription request: Yes Caregiver confirmed with patient/requestor that no other refills are due, in the near future, with this provider at this time: Yes The last office visit in the department: 12/02/[address] Herman Does the patient have a future office visit with this provider/department: Yes Appt changed from 2 1/2 weeks out to [address] Herman OV note on 12/02/23. Appt changed to 01/03/2024 with Lise Greene as no appt in diad. Requested Prescriptions Pending Prescriptions Disp Refills zolpidem (AMBIEN) 10 mg 30 tablet 0 Sig: Take 1 tablet by mouth at bedtime as needed (insomnia) for up to 30 days. Teagan Meyers RN December 17, 2023 2:49 PM documented in this encounter [facility] 12-17-2023 Telephone encounter Note The patient has been identified by name and date of : Yes Caregiver verified no other encounters exist for this prescription request: Yes Caregiver confirmed with patient/requestor that no other refills are due, in the near future, with this provider at this time: Yes The last office visit in the department: 12/02/[address] Herman Does the patient have a future office visit with this provider/department: Yes Appt changed from 2 1/2 weeks out to [address] Herman OV note on 12/02/23. Appt changed to 01/03/2024 with Lise Greene as no appt in diad. Requested Prescriptions Pending Prescriptions Disp Refills zolpidem (AMBIEN) 10 mg 30 tablet 0 Sig: Take 1 tablet by mouth at bedtime as needed (insomnia) for up to 30 days. Teagan Meyers RN December 17, 2023 2:49 PM [facility] 12-16-2023 Note HNO ID: [id number] Author: GAGAN SCHUSTER RN Service: ? Author Type: Registered Nurse Type: Progress Notes Filed: 12/16/2023 12:25 Note Text: ED Follow-Up Note Provider Action / FYI: Outreach was completed via telephone regarding the patient?s recent [facility] ED visit. Member denies any concerning symptoms or current medical or social needs. The patient was encouraged to contact their primary care provider (PCP) to schedule a follow up appointment and ask any questions related to their ongoing care within 7 days of the ED visit. Patient stated understanding. Daughter reports pt doing a lot better No further hallucinations and compliant with wearing her bipap to trach Per daughter to have trach and peg d/c 12/25/23 Lives with a significant other and does receive hhc Patient seen in ED: Out of Network ED Contact made with Patient: Yes The patient was identified by Name and Date of . Discussed Care with: daughter Patient was seen in the Emergency Department (ED) Location: [facility] Date: 12/13/23 Reason for ED Visit: Concern for trach infection/per daughter pt was hallucinating Had not been wearing her bipap that night ED Intervention: trach culture sent Given rx for Bactrim Based on mission assessment specialist, the following disposition is advised: No symptoms or symptoms present, not severe. Routed to: No Action Needed NIKA Education Provided this Outreach: No Gagan Schuster RN December 16, 2023 12:19 PM [facility] 12-16-2023 History of Present illness Narrative ED Follow-Up Note Provider Action / FYI: Outreach was completed via telephone regarding the patient s recent [facility] ED visit. Member denies any concerning symptoms or current medical or social needs. The patient was encouraged to contact their primary care provider (PCP) to schedule a follow up appointment and ask any questions related to their ongoing care within 7 days of the ED visit. Patient stated understanding. Daughter reports pt doing a lot better No further hallucinations and compliant with wearing her bipap to trach Per daughter to have trach and peg d/c 12/25/23 Lives with a significant other and does receive hhc Patient seen in ED: Out of Network ED Contact made with Patient: Yes The patient was identified by Name and Date of . Discussed Care with: daughter Patient was seen in the Emergency Department (ED) Location: [facility] Date: 12/13/23 Reason for ED Visit: Concern for trach infection/per daughter pt was hallucinating Had not been wearing her bipap that night ED Intervention: trach culture sent Given rx for Bactrim Based on mission assessment specialist, the following disposition is advised: No symptoms or symptoms present, not severe. Routed to: No Action Needed NIKA Education Provided this Outreach: Melanie Schuster RN December 16, 2023 12:19 PM documented in this encounter [facility] 12-16-2023 Note Patient Outreach ([facility] [place]) -------- LUIZA MAY ([id number]) 1955 F Date Time Provider Department [facility] your visit today, we recorded the following information about you: Gagan Schuster RN 12/16/2023 12:25 PM Signed ED Follow-Up Note Provider Action / FYI: Outreach was completed via telephone regarding the patient?s recent [facility] ED visit. Member denies any concerning symptoms or current medical or social needs. The patient was encouraged to contact their primary care provider (PCP) to schedule a follow up appointment and ask any questions related to their ongoing care within 7 days of the ED visit. Patient stated understanding. Daughter reports pt doing a lot better No further hallucinations and compliant with wearing her bipap to trach Per daughter to have trach and peg d/c 12/25/23 Lives with a significant other and does receive [facility] Patient seen in ED: Out of Network ED Contact made with Patient: Yes The patient was identified by Name and Date of . Discussed Care with: daughter Patient was seen in the Emergency Department (ED) Location: [facility] Date: 12/13/23 Reason for ED Visit: Concern for trach infection/per daughter pt was hallucinating Had not been wearing her bipap that night ED Intervention: trach culture sent Given rx for Bactrim Based on mission assessment specialist, the following disposition is advised: No symptoms or symptoms present, not severe. Routed to: No Action Needed NIKA Education Provided this Outreach: No Gagan Schuster RN December 16, 2023 12:19 PM Allergies As of Date: 12/16/2023 Noted Allergy Reaction ENTEX (PHENYLEPHRINE-GUAIFENESIN) 04/22/2005 5 - Intolerance TETANUS VACCINES AND TOXOID 04/22/2005 7 - Swelling Date Reviewed: 12/02/2023 Reviewed by: Steven Gillette LPN - Fully Assessed Reason for Visit: Prescriptions as of 12/16/2023 - zolpidem (AMBIEN) 10 mg Take 1 tablet by mouth at bedtime as needed (insomnia) for up to 30 days. - furosemide (LASIX) 20 mg tablet Take 1 tablet by mouth two times a day. - Cholecalciferol, Vitamin D3, 25 mcg (1,000 unit) cap Take 1 capsule by mouth once daily. - DULoxetine (CYMBALTA) 60 mg capsule Take 1 capsule by mouth once daily. - escitalopram oxalate (LEXAPRO) 20 mg tablet Take 0.5 tablets by mouth once daily. - folic acid 1 mg tablet Take 1 tablet by mouth once daily. - pantoprazole DR (PROTONIX) 40 mg tablet Take 1 tablet by mouth daily before breakfast. Take on empty stomach, 1/2 hr before meal. - potassium chloride ER (KLOR-CON) 20 mEq tablet Take 1 tablet by mouth two times a day. - atorvastatin (LIPITOR) 40 mg tablet Take 1 tablet by mouth once daily. - metoprolol succinate ER (TOPROL XL) 25 mg 24 hr tablet Take 1 tablet by mouth once daily. - acetaminophen (TYLENOL) 325 mg tablet 2 tablets by ORAL/FEEDING TUBE route every 4 hours as needed for pain. - ipratropium-albuterol (DUONEB) 0.5 mg-3 mg(2.5 mg base)/3 mL nebu INHALE 1 vial via NEBULIZER EVERY 6 HOURS while awake - albuterol (PROVENTIL) 2.5 mg /3 mL (0.083 %) nebulizer solution Use 2.5 mg via nebulizer as directed. - albuterol HFA (PROAIR HFA) 90 mcg/actuation inhaler Inhale 2 Puffs as instructed every 6 hours as needed. - MEDICAL SUPPLY Portable oxygen cylinders Meds Comments as of 08/11/2023: 08/11/23 The medications are managed by this patient by: PATIENT Seth Chawla [facility] Problem List As Of Date 12/16/2023 Noted Resolved COUGH [R05.9] 04/01/2006 05/03/2006 OBST CHRON BRONCHITIS WITH EXAC [J44.1] 05/03/2006 VIRAL PNEUMONIA NOS [J12.9] 05/03/2006 Panlobular emphysema (HCC) [J43.1] 05/03/2006 Chronic pulmonary heart disease (HCC) [I27.9] 05/03/2006 10/01/2022 ABN BLOOD CHEMISTRY NEC [R79.89] 05/03/2006 BENIGN NEOPLASM LG BOWEL [D12.6] 06/09/2006 ABN FIND-STOOL CONTENTS-OCC BLOOD [R19.5] 06/09/2006 SHOULDER REGION DIS NEC [M25.819] 09/14/2007 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] 11/29/2007 SEBORRHEIC KERATOSIS INFLAMED [L82.0] 12/19/2008 VIRAL WARTS NOS [B07.9] 12/19/2008 CHR SOLAR SKIN DAMAGE NOS [L57.8] 12/19/2008 SOLAR LENTIGENES///DYSCHROMIA OTHER [L81.9] 12/19/2008 SEBORRHEIC KERATOSIS NOS [L82.1] 12/19/2008 SKIN HYPERTRO/ATROPH NOS [L91.9, L90.9] 12/19/2008 Insomnia [G47.00] 02/18/2013 Anxiety [F41.9] 02/18/2013 COPD (chronic obstructive pulmonary disease) (H*08/11/2016 Chronic hypercapnic respiratory failure (HCC) [*08/19/2022 Hemorrhagic stroke (HCC) [I61.9] 10/01/2022 Acute deep vein thrombosis (DVT) of distal vein*11/03/2022 Acute subdural hematoma (HCC) [S06.5XAA] 11/03/2022 Seizure-like activity (HCC) [R56.9] 11/03/2022 Subdural hematoma (HCC) [S06.5XAA] 08/05/2023 Fall [W19.XXXA] 08/06/2023 Scalp laceration, initial encounter [S01.01XA] 08/06/2023 Acute on chronic respiratory acidosis (HCC) [J9*08/07/2023 Hypophosphatemia [E83.39] 08/07/2023 08/10/2023 Hypomagnesemia [E83.42 (more content not included)... [facility] 12-15-2023 Telephone encounter Note Spoke with pt and she has not picked up the 30 day supply from 12-02-23 per pt. Pt will check with the pharmacy. Nava Connell LPN [facility] 12-15-2023 Miscellaneous Notes Spoke with pt and she has not picked up the 30 day supply from 12-02-23 per pt. Pt will check with the pharmacy. Nava Connell LPN TC no answer. Left VM to return call. WIL Meyer She filled a 30 day supply on 12/02/[address] Cheatham, should not need a refill today. Why requesting? Patient has been identified by name and date of : Yes, Provider Dr. Wahl Date 12-09-23 Time 11:31 Pharmacy phones for refill(s): Requested Prescriptions Pending Prescriptions Disp Refills zolpidem (AMBIEN) 10 mg 30 tablet 0 Sig: Take 1 tablet by mouth at bedtime as needed (insomnia) for up to 30 days. Date of last office visit in primary care: 12/02/2023 Date of next office visit in primary care: Visit date not found Please advise. Thank you. Jackie Magaña. documented in this encounter [facility] 12-14-2023 Telephone encounter Note TC no answer. Left VM to return call. WIL Meyer [facility] 12-13-2023 Telephone encounter Note She filled a 30 day supply on 12/02/[address] Cheatham, should not need a refill today. Why requesting? [facility] 12-13-2023 Telephone encounter Note See other note regarding this patient today, can address in other phone encounter. [facility] 12-13-2023 Miscellaneous Notes See other note regarding this patient today, can address in other phone encounter. FYI: Radha with [facility] calls to report she had pt squaded to [facility]. Radha reports pt showed signs of infection in G-tube and trach. Pt was hallucinating. Bhavana Garza LPN documented in this encounter [facility] 12-13-2023 Telephone encounter Note FYI: Radha with [facility] calls to report she had pt squaded to [facility]. Radha reports pt showed signs of infection in G-tube and trach. Pt was hallucinating. Bhavana Garza LPN [facility] 12-10-2023 History of Present illness Narrative ED Follow-Up Note Provider Action / FYI: Outreach was completed via telephone regarding the patient s recent [facility] ED visit. Member denies any concerning symptoms or current medical or social needs. The patient was encouraged to contact their primary care provider (PCP) to schedule a follow up appointment and ask any questions related to their ongoing care within 7 days of the ED visit. Patient stated understanding. Patient seen in ED: Out of Network ED Contact made with Patient: Yes The patient was identified by Name and Date of . Discussed Care with: daughter Patient was seen in the Emergency Department (ED) Location: Date: 12/06/23 Reason for ED Visit: wellness vs ED Intervention: Chest x ray done per daughter pt recently d/c from [facility] Still has her trach and peg Per daughter pt receiving hhc from [facility] Is currently eating Cpap@ nite Per daughter,plan is to discontinue peg and trach soon Discussed f/u with pcp Based on mission assessment specialist, the following disposition is advised: No symptoms or symptoms present, not severe. Routed to: No Action Needed NIKA Education Provided this Outreach: No Gagan Schuster RN December 10, 2023 1:58 PM documented in this encounter [facility] 12-10-2023 Note HNO ID: [id number] Author: GAGAN SCHUSTER RN Service: ? Author Type: Registered Nurse Type: Progress Notes Filed: 12/10/2023 14:10 Note Text: ED Follow-Up Note Provider Action / FYI: Outreach was completed via telephone regarding the patient?s recent [facility] ED visit. Member denies any concerning symptoms or current medical or social needs. The patient was encouraged to contact their primary care provider (PCP) to schedule a follow up appointment and ask any questions related to their ongoing care within 7 days of the ED visit. Patient stated understanding. Patient seen in ED: Out of Network ED Contact made with Patient: Yes The patient was identified by Name and Date of . Discussed Care with: daughter Patient was seen in the Emergency Department (ED) Location: Date: 12/06/23 Reason for ED Visit: wellness vs ED Intervention: Chest x ray done per daughter pt recently d/c from [facility] Still has her trach and peg Per daughter pt receiving hhc from [facility] Is currently eating Cpap@ nite Per daughter,plan is to discontinue peg and trach soon Discussed f/u with pcp Based on mission assessment specialist, the following disposition is advised: No symptoms or symptoms present, not severe. Routed to: No Action Needed NIKA Education Provided this Outreach: No Gagan Schuster RN December 10, 2023 1:58 PM [facility] 12-10-2023 Note Patient Outreach ([facility] [facility]) -------- LUIZA MAY ([id number]) 1955 F Date Time Provider Department 12/10[facility]23 [facility] During your visit today, we recorded the following information about you: Gagan Schuster RN 12/10/2023 2:10 PM Signed ED Follow-Up Note Provider Action / FYI: Outreach was completed via telephone regarding the patient?s recent [facility] ED visit. Member denies any concerning symptoms or current medical or social needs. The patient was encouraged to contact their primary care provider (PCP) to schedule a follow up appointment and ask any questions related to their ongoing care within 7 days of the ED visit. Patient stated understanding. Patient seen in ED: Out of Network ED Contact made with Patient: Yes The patient was identified by Name and Date of . Discussed Care with: daughter Patient was seen in the Emergency Department (ED) Location: [facility] Date: 12/06/23 Reason for ED Visit: wellness vs ED Intervention: Chest x ray done per daughter pt recently d/c from [facility] Still has her trach and peg Per daughter pt receiving hhc from [facility] Is currently eating Cpap@ nite Per daughter,plan is to discontinue peg and trach soon Discussed f/u with pcp Based on mission assessment specialist, the following disposition is advised: No symptoms or symptoms present, not severe. Routed to: No Action Needed NIKA Education Provided this Outreach: No Gagan Schuster RN December 10, 2023 1:58 PM Allergies As of Date: 12/10/2023 Noted Allergy Reaction ENTEX (PHENYLEPHRINE-GUAIFENESIN) 04/22/2005 5 - Intolerance TETANUS VACCINES AND TOXOID 04/22/2005 7 - Swelling Date Reviewed: 12/02/2023 Reviewed by: Steven Gillette LPN - Fully Assessed Reason for Visit: WAYLON MAN RN [[id number]] Cmt: ER vs ellyn on 12/06/23 Prescriptions as of 12/10/2023 - zolpidem (AMBIEN) 10 mg Take 1 tablet by mouth at bedtime as needed (insomnia) for up to 30 days. - furosemide (LASIX) 20 mg tablet Take 1 tablet by mouth two times a day. - Cholecalciferol, Vitamin D3, 25 mcg (1,000 unit) cap Take 1 capsule by mouth once daily. - DULoxetine (CYMBALTA) 60 mg capsule Take 1 capsule by mouth once daily. - escitalopram oxalate (LEXAPRO) 20 mg tablet Take 0.5 tablets by mouth once daily. - folic acid 1 mg tablet Take 1 tablet by mouth once daily. - pantoprazole DR (PROTONIX) 40 mg tablet Take 1 tablet by mouth daily before breakfast. Take on empty stomach, 1/2 hr before meal. - potassium chloride ER (KLOR-CON) 20 mEq tablet Take 1 tablet by mouth two times a day. - atorvastatin (LIPITOR) 40 mg tablet Take 1 tablet by mouth once daily. - metoprolol succinate ER (TOPROL XL) 25 mg 24 hr tablet Take 1 tablet by mouth once daily. - acetaminophen (TYLENOL) 325 mg tablet 2 tablets by ORAL/FEEDING TUBE route every 4 hours as needed for pain. - ipratropium-albuterol (DUONEB) 0.5 mg-3 mg(2.5 mg base)/3 mL nebu INHALE 1 vial via NEBULIZER EVERY 6 HOURS while awake - albuterol (PROVENTIL) 2.5 mg /3 mL (0.083 %) nebulizer solution Use 2.5 mg via nebulizer as directed. - albuterol HFA (PROAIR HFA) 90 mcg/actuation inhaler Inhale 2 Puffs as instructed every 6 hours as needed. - MEDICAL SUPPLY Portable oxygen cylinders Meds Comments as of 08/11/2023: 08/11/23 The medications are managed by this patient by: PATIENT Seth Chawla [facility] Problem List As Of Date 12/10/2023 Noted Resolved COUGH [R05.9] 04/01/2006 05/03/2006 OBST CHRON BRONCHITIS WITH EXAC [J44.1] 05/03/2006 VIRAL PNEUMONIA NOS [J12.9] 05/03/2006 Panlobular emphysema (HCC) [J43.1] 05/03/2006 Chronic pulmonary heart disease (HCC) [I27.9] 05/03/2006 10/01/2022 ABN BLOOD CHEMISTRY NEC [R79.89] 05/03/2006 BENIGN NEOPLASM LG BOWEL [D12.6] 06/09/2006 ABN FIND-STOOL CONTENTS-OCC BLOOD [R19.5] 06/09/2006 SHOULDER REGION DIS NEC [M25.819] 09/14/2007 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] 11/29/2007 SEBORRHEIC KERATOSIS INFLAMED [L82.0] 12/19/2008 VIRAL WARTS NOS [B07.9] 12/19/2008 CHR SOLAR SKIN DAMAGE NOS [L57.8] 12/19/2008 SOLAR LENTIGENES///DYSCHROMIA OTHER [L81.9] 12/19/2008 SEBORRHEIC KERATOSIS NOS [L82.1] 12/19/2008 SKIN HYPERTRO/ATROPH NOS [L91.9, L90.9] 12/19/2008 Insomnia [G47.00] 02/18/2013 Anxiety [F41.9] 02/18/2013 COPD (chronic obstructive pulmonary disease) (H*08/11/2016 Chronic hypercapnic respiratory failure (HCC) [*08/19/2022 Hemorrhagic stroke (HCC) [I61.9] 10/01/2022 Acute deep vein thrombosis (DVT) of distal vein*11/03/2022 Acute subdural hematoma (HCC) [S06.5XAA] 11/03/2022 Seizure-like activity (HCC) [R56.9] 11/03/2022 Subdural hematoma (HCC) [S06.5XAA] 08/05/2023 Fall [W19.XXXA] 08/06/2023 Scalp laceration, initial encounter [S01.01XA] 08/06/2023 Acute on chronic respiratory acidosis (HCC) [J9*08/07/2023 Hypophosphatemia [E83.39] 08/07/2023 08/10/2023 Hypomagnesemia [E83.42] 08/07/2023 08/10/2023 Hypokalemia [E (more content not included)... [facility] 12-09-2023 Telephone encounter Note Patient has been identified by name and date of : Yes, Provider Dr. Wahl Date 12-09-23 Time 11:31 Pharmacy phones for refill(s): Requested Prescriptions Pending Prescriptions Disp Refills zolpidem (AMBIEN) 10 mg 30 tablet 0 Sig: Take 1 tablet by mouth at bedtime as needed (insomnia) for up to 30 days. Date of last office visit in primary care: 12/02/2023 Date of next office visit in primary care: Visit date not found Please advise. Thank you. Jackie Magaña. [facility] 12-07-2023 Telephone encounter Note Patient was seen in office 12/01 and refill of Ambien given at that time. Closing this encounter. WIL Meyer [facility] 12-07-2023 Miscellaneous Notes Patient was seen in office 12/01 and refill of Ambien given at that time. Closing this encounter. WIL Meyer attempted to reach pt by phone without success. tried moblolie and home ph one and get a different person not pt. Tried daughter mobile phone and mailbox is full. Try pt later. Nava Connell LPN\ Patient has been in hospital 4 times in the last 2 months for breathing issues, seizures, and various other problems. NO ambien until seen by a provider. Thank you Joan Johnson APRN.AGRICULTURE WORKER Patient has been identified by name and date of : No Patient phones for refill(s): Requested Prescriptions Pending Prescriptions Disp Refills furosemide (LASIX) 20 mg tablet 60 tablet 3 Sig: Take 1 tablet by mouth two times a day. zolpidem (AMBIEN) 10 mg 30 tablet 0 Sig: Take 1 tablet by mouth at bedtime as needed (insomnia) for up to 90 days. Date of last office visit in primary care: 09/23/2023 Date of next office visit in primary care: 12/06/2023 Please advise. Thank you. Irena Norton LPN. Patient has been identified by name and date of : Patient phones for refill(s): Requested Prescriptions Pending Prescriptions Disp Refills furosemide (LASIX) 20 mg tablet 60 tablet 3 Sig: Take 1 tablet by mouth two times a day. zolpidem (AMBIEN) 10 mg 30 tablet 0 Sig: Take 1 tablet by mouth at bedtime as needed (insomnia) for up to 90 days. Date of last office visit in primary care: 09/23/2023 Date of next office visit in primary care: 12/06/2023 Please advise. Thank you. May Menchaca. documented in this encounter [facility] 12-06-2023 Telephone encounter Note [facility] to [facility]. Pt has appt with gen surg 12/24/23. No f/u that we can tell here for pulmonary. [facility] 12-06-2023 Miscellaneous Notes Called back to [facility]. Pt has appt with gen surg 12/24/23. No f/u that we can tell here for pulmonary. [facility] orders, pending follow up with PCP team. 1)[facility] calling because they need verbal orders to see pt for nursing and they need verbal orders today or they will have to drop her. 2)need verbal orders or faxed orders [phone] for Trach size & G-tube care, water and flushes. See message below for all that is needed and other information. Routing to Dr. Herman who saw pt last. Provider/team is unavailable. Nava Connell LPN Will Joan follow? Schedule follow up with Joan Johnson. She can sign orders for PCP. I saw patient for referrals to have tubes removed and she has been referred. Nemo RN with [facility] and reports they opened HH orders on Pt and calling to see if provider will sign off on orders. She states they will be seeing the Pt twice a week for 2 weeks then once a week for 2 months. She was asking provider for trach and g-tube size and the last time they were changed. She states they will need orders if provider is wanting them to change them and do care. She also states they need orders if provider is wanting the g-tube flushed and how much to flush with. She states the Pt wants them both removed, and states she is allowing the g-tube to be used for medication. Asking for a referral to Pulmonology. She reports when Pt was discharged from [facility] she had been getting her Magnesium, Phos, and CBC done weekly but they were Dced at discharge, she wanted to know if provider wanted these continued. She also reports a medication discrepancy the Pt takes Dilantin for seizures, and it is not on her medication list. I told her I do not see it on her current medication list. Pt sees Neurology, wondering if they may be the ones taking care of this medication. See Jacob on her outside medication list on 11/11/23 from [facility], but it is solution for the g-tube Sending updated medication list to fax # [phone]. documented in this encounter [facility] 12-06-2023 Telephone encounter Note [facility] orders, pending follow up with PCP team. [facility] 12-06-2023 Telephone encounter Note 1)[facility] calling because they need verbal orders to see pt for nursing and they need verbal orders today or they will have to drop her. 2)need verbal orders or faxed orders [phone] for Trach size & G-tube care, water and flushes. See message below for all that is needed and other information. Routing to Dr. Herman who saw pt last. Provider/team is unavailable. Nava Connell LPN [facility] 12-03-2023 Telephone encounter Note Will Joan follow? [facility] 12-03-2023 Telephone encounter Note Schedule follow up with Joan Johnson. She can sign orders for PCP. I saw patient for referrals to have tubes removed and she has been referred. T [facility] 12-03-2023 Telephone encounter Note Nemo KILPATRICK with [facility] and reports they opened HH orders on Pt and calling to see if provider will sign off on orders. She states they will be seeing the Pt twice a week for 2 weeks then once a week for 2 months. She was asking provider for trach and g-tube size and the last time they were changed. She states they will need orders if provider is wanting them to change them and do care. She also states they need orders if provider is wanting the g-tube flushed and how much to flush with. She states the Pt wants them both removed, and states she is allowing the g-tube to be used for medication. Asking for a referral to Pulmonology. She reports when Pt was discharged from [facility] she had been getting her Magnesium, Phos, and CBC done weekly but they were Dced at discharge, she wanted to know if provider wanted these continued. She also reports a medication discrepancy the Pt takes Dilantin for seizures, and it is not on her medication list. I told her I do not see it on her current medication list. Pt sees Neurology, wondering if they may be the ones taking care of this medication. See Harrisrios on her outside medication list on 11/11/23 from [facility], but it is solution for the g-tube Sending updated medication list to fax # [phone]. T [facility] 12-03-2023 Telephone encounter Note [facility] calling with questions regarding pt's medications. Questions answered. Gisell Schumacher RN T [facility] 12-03-2023 Miscellaneous Notes [facility] calling with questions regarding pt's medications. Questions answered. Gisell Schumacher RN documented in this encounter [facility] 12-02-2023 Note HNO ID: [id number] Author: ISSA HERMAN MD Service: ? Author Type: Physician Type: Progress Notes Filed: 12/02/2023 15:09 Note Text: This note was created using KnexxLocal[employer]. Subjective Patient presents with: Recheck: [facility] long term discharge, trach and GI tube, want them removed PCP Maryam Franco MD Luiza May is a 68 year old female here with her brother. History was complicated with admissions in [facility], [place], and recent discharge from [facility] (November 24). Discharge records from [facility] were not on file. Medications were reviewed with the patient. She mainly needed tracheostomy and G-tube removed. She reported eating regular food, and passing her swallowing tests. She was taking her medications orally. She reported dilantin was discontinued in the long term. She had her medications other than Ambien. She requested pain medication for the G tube. She was not on medication for abdominal pain in the long term. I explained I am not starting any new medication. Patient indicated understanding and willingness to follow recommendations. Review of Systems Constitutional: Negative for chills and fever. HENT: Negative for trouble swallowing. Respiratory: Positive for cough and shortness of breath. Cardiovascular: Negative for chest pain, palpitations and leg swelling. Gastrointestinal: Positive for abdominal pain. Negative for constipation, diarrhea, nausea and vomiting. Genitourinary: Negative. Neurological: Negative for dizziness, seizures, syncope and light-headedness. Psychiatric/Behavioral: Positive for sleep disturbance. 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 OTHER Other Seborrheic Keratosis Unspecified Hypertrophic and Atrophic Condition of Skin Insomnia Anxiety Copd (Chronic Obstructive Pulmonary Disease) (Hcc) Chronic Hypercapnic Respiratory Failure (Hcc) Hemorrhagic Stroke (Hcc) Acute Deep Vein Thrombosis (Dvt) of Distal Vein of Right Lower Extremity (Hcc) Acute Subdural Hematoma (Hcc) Seizure-Like Activity (Hcc) Subdural Hematoma (Hcc) Fall Scalp Laceration, Initial Encounter Acute On Chronic Respiratory Acidosis (Hcc) Social History Tobacco Use Smoking status: Former Packs/day: 1.00 Years: 18.00 Additional pack years: 0.00 Total pack years: 18.00 Types: Cigarettes Quit date: 04/06/2006 Years since quittin.6 Smokeless tobacco: Never Substance Use Topics Alcohol use: Yes Comment: Rarely Drug use: No Current Outpatient Medications Medication Sig furosemide (LASIX) 20 mg tablet Take 1 tablet by mouth two times a day. Cholecalciferol, Vitamin D3, 25 mcg (1,000 unit) cap Take 1 capsule by mouth once daily. DULoxetine (CYMBALTA) 60 mg capsule Take 1 capsule by mouth once daily. escitalopram oxalate (LEXAPRO) 20 mg tablet Take 0.5 tablets by mouth once daily. folic acid 1 mg tablet Take 1 tablet by mouth once daily. pantoprazole DR (PROTONIX) 40 mg tablet Take 1 tablet by mouth daily before breakfast. Take on empty stomach, 1/2 hr before meal. potassium chloride ER (KLOR-CON) 20 mEq tablet Take 1 tablet by mouth two times a day. atorvastatin (LIPITOR) 40 mg tablet Take 1 tablet by mouth once daily. metoprolol succinate ER (TOPROL XL) 25 mg 24 hr tablet Take 1 tablet by mouth once daily. acetaminophen (TYLENOL) 325 mg tablet 2 tablets by ORAL/FEEDING TUBE route every 4 hours as needed for pain. ipratropium-albuterol (DUONEB) 0.5 mg-3 mg(2.5 mg base)/3 mL nebu INHALE 1 vial via NEBULIZER EVERY 6 HOURS while awake albuterol (PROVENTIL) 2.5 mg /3 mL (0.083 %) nebulizer solution Use 2.5 mg via nebulizer as directed. albuterol HFA (PROAIR HFA) 90 mcg/actuation inhaler Inhale 2 Puffs as instructed every 6 hours as needed. MEDICAL SUPPLY Portable oxygen cylinders zolpidem (AMBIEN) 10 mg Take 1 tablet by mouth at bedtime as needed (insomnia) for up to 30 days. No current facility-administered medications for this visit. Objective BP 98/60 (BP Site: Right Arm) Pulse 102 Ht 160 cm (5' 3 ) Wt 59.1 kg (130 lb 6.4 oz) LMP 02/11/2006 SpO2 (!) 84% BMI 23.10 kg/m? Physical Exam Constitutional: General: She is not in acute distress. Appearance: She is not diaphoretic. HENT: Nose: Nose normal. Mouth/Throat: Mouth: Mucous membranes are moist. Pharynx: Oropharynx is clear. Eyes: Conjunctiva/sclera: Conjunctivae normal. Neck: Comments: Tracheostomy in place. Cardiovascular: Rate and Rhythm: Normal rate and regular rhythm. Heart sounds: No murmur heard. No gallop. Pulmonary: Effort: No respiratory distress. Breath s (more content not included)... [facility] 12-02-2023 History of Present illness Narrative This note was created using swabrter. Subjective Patient presents with: Recheck: [facility] term discharge, trach and GI tube, want them removed PCP Maryam Franco MD Luiza May is a 68 year old female here with her brother. History was complicated with admissions in [place], [facility], [place], and recent discharge from [facility] (November 24). Discharge records from [facility] were not on file. Medications were reviewed with the patient. She mainly needed tracheostomy and G-tube removed. She reported eating regular food, and passing her swallowing tests. She was taking her medications orally. She reported dilantin was discontinued in the long term. She had her medications other than Ambien. She requested pain medication for the G tube. She was not on medication for abdominal pain in the long term. I explained I am not starting any new medication. Patient indicated understanding and willingness to follow recommendations. Review of Systems Constitutional: Negative for chills and fever. HENT: Negative for trouble swallowing. Respiratory: Positive for cough and shortness of breath. Cardiovascular: Negative for chest pain, palpitations and leg swelling. Gastrointestinal: Positive for abdominal pain. Negative for constipation, diarrhea, nausea and vomiting. Genitourinary: Negative. Neurological: Negative for dizziness, seizures, syncope and light-headedness. Psychiatric/Behavioral: Positive for sleep disturbance. 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 OTHER Other Seborrheic Keratosis Unspecified Hypertrophic and Atrophic Condition of Skin Insomnia Anxiety Copd (Chronic Obstructive Pulmonary Disease) (Hcc) Chronic Hypercapnic Respiratory Failure (Hcc) Hemorrhagic Stroke (Hcc) Acute Deep Vein Thrombosis (Dvt) of Distal Vein of Right Lower Extremity (Hcc) Acute Subdural Hematoma (Hcc) Seizure-Like Activity (Hcc) Subdural Hematoma (Hcc) Fall Scalp Laceration, Initial Encounter Acute On Chronic Respiratory Acidosis (Hcc) Social History Tobacco Use Smoking status: Former Packs/day: 1.00 Years: 18.00 Additional pack years: 0.00 Total pack years: 18.00 Types: Cigarettes Quit date: 04/06/2006 Years since quittin.6 Smokeless tobacco: Never Substance Use Topics Alcohol use: Yes Comment: Rarely Drug use: No Current Outpatient Medications Medication Sig furosemide (LASIX) 20 mg tablet Take 1 tablet by mouth two times a day. Cholecalciferol, Vitamin D3, 25 mcg (1,000 unit) cap Take 1 capsule by mouth once daily. DULoxetine (CYMBALTA) 60 mg capsule Take 1 capsule by mouth once daily. escitalopram oxalate (LEXAPRO) 20 mg tablet Take 0.5 tablets by mouth once daily. folic acid 1 mg tablet Take 1 tablet by mouth once daily. pantoprazole DR (PROTONIX) 40 mg tablet Take 1 tablet by mouth daily before breakfast. Take on empty stomach, 1/2 hr before meal. potassium chloride ER (KLOR-CON) 20 mEq tablet Take 1 tablet by mouth two times a day. atorvastatin (LIPITOR) 40 mg tablet Take 1 tablet by mouth once daily. metoprolol succinate ER (TOPROL XL) 25 mg 24 hr tablet Take 1 tablet by mouth once daily. acetaminophen (TYLENOL) 325 mg tablet 2 tablets by ORAL/FEEDING TUBE route every 4 hours as needed for pain. ipratropium-albuterol (DUONEB) 0.5 mg-3 mg(2.5 mg base)/3 mL nebu INHALE 1 vial via NEBULIZER EVERY 6 HOURS while awake albuterol (PROVENTIL) 2.5 mg /3 mL (0.083 %) nebulizer solution Use 2.5 mg via nebulizer as directed. albuterol HFA (PROAIR HFA) 90 mcg/actuation inhaler Inhale 2 Puffs as instructed every 6 hours as needed. MEDICAL SUPPLY Portable oxygen cylinders zolpidem (AMBIEN) 10 mg Take 1 tablet by mouth at bedtime as needed (insomnia) for up to 30 days. No current facility-administered medications for this visit. Objective BP 98/60 (BP Site: Right Arm) Pulse 102 Ht 160 cm (5' 3 ) Wt 59.1 kg (130 lb 6.4 oz) LMP 02/11/2006 SpO2 (!) 84% BMI 23.10 kg/m Physical Exam Constitutional: General: She is not in acute distress. Appearance: She is not diaphoretic. HENT: Nose: Nose normal. Mouth/Throat: Mouth: Mucous membranes are moist. Pharynx: Oropharynx is clear. Eyes: Conjunctiva/sclera: Conjunctivae normal. Neck: Comments: Tracheostomy in place. Cardiovascular: Rate and Rhythm: Normal rate and regular rhythm. Heart sounds: No murmur heard. No gallop. Pulmonary: Effort: No respiratory distress. Breath sounds: Rhonchi present. No wheezing or rales. Abdominal: Palpations: Abdomen is soft. Tenderness: There is no abdominal tenderness. Comments: G tube in place. Site clean. Musculoskeletal: Right lower leg: No edema. Neurological: General: No focal deficit present. Mental Status: She is alert. Gait: Gait normal. Assessment and Plan 1. 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) - ICD9: V44.0, ICD10: Z93.0 (primary diagnosis) Removal needed. - CONSULT TO ENT 2. 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) - ICD9: V44.1, ICD10: Z93.1 Removal needed. - CONSULT TO GENERAL SURGERY 3. Panlobular emphysema (HCC) - ICD9: 492.8, ICD10: J43.1 Stable. 4. Seizure-like activity (HCC) - ICD9: 780.39, ICD10: R56.9 Resolved. 5. Insomnia, unspecified type - ICD9: 780.52, ICD10: G47.00 Chronic. Refilled x 1. Further refills will be per PCP team. - ZOLPIDEM 10 MG TABLET Issa Herman MD documented in this encounter [facility] 11-27-2023 Telephone encounter Note attempted to reach pt by phone without success. tried moblolie and home ph one and get a different person not pt. Tried daughter mobile phone and mailbox is full. Try pt later. Nava Connell LPN\ [facility] 11-26-2023 Telephone encounter Note Patient has been in hospital 4 times in the last 2 months for breathing issues, seizures, and various other problems. NO ambien until seen by a provider. Thank you Joan Johnson APRN.AGRICULTURE WORKER [facility] 11-26-2023 Telephone encounter Note Patient has been identified by name and date of : No Patient phones for refill(s): Requested Prescriptions Pending Prescriptions Disp Refills furosemide (LASIX) 20 mg tablet 60 tablet 3 Sig: Take 1 tablet by mouth two times a day. zolpidem (AMBIEN) 10 mg 30 tablet 0 Sig: Take 1 tablet by mouth at bedtime as needed (insomnia) for up to 90 days. Date of last office visit in primary care: 09/23/2023 Date of next office visit in primary care: 12/06/2023 Please advise. Thank you. Irena Norton LPN. [facility] 11-26-2023 Telephone encounter Note Patient has been identified by name and date of : Pharmacy phones for refill(s): Requested Prescriptions Pending Prescriptions Disp Refills Cholecalciferol, Vitamin D3, 25 mcg (1,000 unit) cap 30 capsule 3 Sig: Take 1 capsule by mouth once daily. Date of last office visit in primary care: 09/23/2023 Date of next office visit in primary care: 11/26/2023 Please advise. Thank you. Xiomara Abad LPN. [facility] 11-26-2023 Miscellaneous Notes Patient has been identified by name and date of : Pharmacy phones for refill(s): Requested Prescriptions Pending Prescriptions Disp Refills Cholecalciferol, Vitamin D3, 25 mcg (1,000 unit) cap 30 capsule 3 Sig: Take 1 capsule by mouth once daily. Date of last office visit in primary care: 09/23/2023 Date of next office visit in primary care: 11/26/2023 Please advise. Thank you. Xiomara Abad LPN. [facility] asking for medication that is . documented in this encounter [facility] 11-26-2023 Telephone encounter Note Patient has been identified by name and date of : Patient phones for refill(s): Requested Prescriptions Pending Prescriptions Disp Refills furosemide (LASIX) 20 mg tablet 60 tablet 3 Sig: Take 1 tablet by mouth two times a day. zolpidem (AMBIEN) 10 mg 30 tablet 0 Sig: Take 1 tablet by mouth at bedtime as needed (insomnia) for up to 90 days. Date of last office visit in primary care: 09/23/2023 Date of next office visit in primary care: 12/06/2023 Please advise. Thank you. May Menchaca. [facility] 11-26-2023 Telephone encounter Note [facility] asking for medication that is . [facility] 11-23-2023 Note HNO ID: [id number] Author: ROSALVA STODDARD MA Service: ? Author Type: Crime Lab Analyst Type: Progress Notes Filed: 11/23/2023 09:36 Note Text: POPULATION HEALTH NAVIGATION OUTREACH Action/FYI Contacted patient to schedule [facility] Annual Wellness Visit, care gaps and HCCs due. 1st attempt: Left message with my direct number 2nd attempt: Home number not in service Reason for Outreach Care Gap/HCC or Scheduling Wellness Visits Care Gaps due: Medicare Annual Wellness Visit Breast Cancer Screening Patient Contacted: Unable or unnecessary to reach patient: Left message [employer] message sent HCC related Navigation Signature: Rosalva Stoddard MA November 23, 2023 9:35 AM [facility] 11-23-2023 History of Present illness Narrative POPULATION HEALTH NAVIGATION OUTREACH Action/FYI Contacted patient to schedule [facility] Annual Wellness Visit, care gaps and HCCs due. 1st attempt: Left message with my direct number 2nd attempt: Home number not in service Reason for Outreach Care Gap/HCC or Scheduling Wellness Visits Care Gaps due: Medicare Annual Wellness Visit Breast Cancer Screening Patient Contacted: Unable or unnecessary to reach patient: Left message [employer] message sent HCC related Navigation Signature: Rosalva Stoddard MA November 23, 2023 9:35 AM documented in this encounter [facility] [facility] 11-23-2023 Note Patient Outreach (NE TNAV) -------- LUIZA MAY ([id number]) 1955 F Date Time Provider Department 11/23/23 ROSALVA STODDARD During your visit today, we recorded the following information about you: Rosalva Stoddard MA 11/23/2023 9:36 AM Signed POPULATION HEALTH NAVIGATION OUTREACH Action/FYI Contacted patient to schedule [facility] Annual Wellness Visit, care gaps and HCCs due. 1st attempt: Left message with my direct number 2nd attempt: Home number not in service Reason for Outreach Care Gap/HCC or Scheduling Wellness Visits Care Gaps due: Medicare Annual Wellness Visit Breast Cancer Screening Patient Contacted: Unable or unnecessary to reach patient: Left message MyChart message sent HCC related Navigation Signature: Rosalva Stoddard MA November 23, 2023 9:35 AM Allergies As of Date: 11/23/2023 Noted Allergy Reaction ENTEX (PHENYLEPHRINE-GUAIFENESIN) 04/22/2005 5 - Intolerance TETANUS VACCINES AND TOXOID 04/22/2005 7 - Swelling Date Reviewed: 09/23/2023 Reviewed by: Lorraine Clement OCCA - Fully Assessed Reason for Visit: Population Health Navigation Outreach [3910] Cmt: Arlet AWV/HCC and care gaps Prescriptions as of 11/23/2023 - ARIPiprazole (ABILIFY) 2 mg tablet Take 1 tablet by mouth once daily. - zolpidem (AMBIEN) 10 mg Take 1 tablet by mouth at bedtime as needed (insomnia) for up to 90 days. - hydrOXYzine pamoate (VISTARIL) 25 mg capsule Take 1 capsule by mouth three times a day as needed for anxiety. - phenytoin (DILANTIN) 125 mg/5 mL susp Take 4 mL by mouth every 8 hours. - DULoxetine (CYMBALTA) 60 mg capsule Take 1 capsule by mouth once daily. - escitalopram oxalate (LEXAPRO) 20 mg tablet Take 0.5 tablets by mouth once daily. - gabapentin (NEURONTIN) 300 mg capsule Take 1 capsule by mouth daily at bedtime for 30 days. - folic acid 1 mg tablet Take 1 tablet by mouth once daily. - pantoprazole DR (PROTONIX) 40 mg tablet Take 1 tablet by mouth daily before breakfast. Take on empty stomach, 1/2 hr before meal. - potassium chloride ER (KLOR-CON) 20 mEq tablet Take 1 tablet by mouth two times a day. - atorvastatin (LIPITOR) 40 mg tablet Take 1 tablet by mouth once daily. - metoprolol succinate ER (TOPROL XL) 25 mg 24 hr tablet Take 1 tablet by mouth once daily. - acetaminophen (TYLENOL) 325 mg tablet 2 tablets by ORAL/FEEDING TUBE route every 4 hours as needed for pain. - ipratropium-albuterol (DUONEB) 0.5 mg-3 mg(2.5 mg base)/3 mL nebu INHALE 1 vial via NEBULIZER EVERY 6 HOURS while awake - albuterol (PROVENTIL) 2.5 mg /3 mL (0.083 %) nebulizer solution Use 2.5 mg via nebulizer as directed. - furosemide (LASIX) 20 mg tablet Take 1 tablet by mouth two times a day. - rOPINIRole (REQUIP) 1 mg tablet Take 1 tablet by mouth daily at bedtime. - Cholecalciferol, Vitamin D3, 25 mcg (1,000 unit) cap Take 1 capsule by mouth once daily. - albuterol HFA (PROAIR HFA) 90 mcg/actuation inhaler Inhale 2 Puffs as instructed every 6 hours as needed. - MEDICAL SUPPLY Portable oxygen cylinders Meds Comments as of 08/11/2023: 08/11/23 The medications are managed by this patient by: PATIENT Seth Chawla [facility] Problem List As Of Date 11/23/2023 Noted Resolved COUGH [R05.9] 04/01/2006 05/03/2006 OBST CHRON BRONCHITIS WITH EXAC [J44.1] 05/03/2006 VIRAL PNEUMONIA NOS [J12.9] 05/03/2006 Panlobular emphysema (HCC) [J43.1] 05/03/2006 Chronic pulmonary heart disease (HCC) [I27.9] 05/03/2006 10/01/2022 ABN BLOOD CHEMISTRY NEC [R79.89] 05/03/2006 BENIGN NEOPLASM LG BOWEL [D12.6] 06/09/2006 ABN FIND-STOOL CONTENTS-OCC BLOOD [R19.5] 06/09/2006 SHOULDER REGION DIS NEC [M25.819] 09/14/2007 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] 11/29/2007 SEBORRHEIC KERATOSIS INFLAMED [L82.0] 12/19/2008 VIRAL WARTS NOS [B07.9] 12/19/2008 CHR SOLAR SKIN DAMAGE NOS [L57.8] 12/19/2008 SOLAR LENTIGENES///DYSCHROMIA OTHER [L81.9] 12/19/2008 SEBORRHEIC KERATOSIS NOS [L82.1] 12/19/2008 SKIN HYPERTRO/ATROPH NOS [L91.9, L90.9] 12/19/2008 Insomnia [G47.00] 02/18/2013 Anxiety [F41.9] 02/18/2013 COPD (chronic obstructive pulmonary disease) (H*08/11/2016 Chronic hypercapnic respiratory failure (HCC) [*08/19/2022 Hemorrhagic stroke (HCC) [I61.9] 10/01/2022 Acute deep vein thrombosis (DVT) of distal vein*11/03/2022 Acute subdural hematoma (HCC) [S06.5XAA] 11/03/2022 Seizure-like activity (HCC) [R56.9] 11/03/2022 Subdural hematoma (HCC) [S06.5XAA] 08/05/2023 Fall [W19.XXXA] 08/06/2023 Scalp laceration, initial encounter [S01.01XA] 08/06/2023 Acute on chronic respiratory acidosis (HCC) [J9*08/07/2023 Hypophosphatemia [E83.39] 08/07/2023 08/10/2023 Hypomagnesemia [E83.42] 08/07/2023 08/10/2023 Hypokalemia [E87.6] 08/07/2023 08/10/2023 Encounter Status:Closed by ROSALVA STODDARD on 11/23/23 [facility] 11-02-2023 Telephone encounter Note Patient has been identified by name and date of : Yes Pharmacy phones for refill(s): Requested Prescriptions Pending Prescriptions Disp Refills ARIPiprazole (ABILIFY) 2 mg tablet 30 tablet 3 Sig: Take 1 tablet by mouth once daily. Date of last office visit in primary care: 09/23/2023 Date of next office visit in primary care: Visit date not found Pharmacy will let Patient know that she needs to schedule an appt for future refills. Please advise. Thank you. Lisette Corona LPN. [facility] 11-02-2023 Miscellaneous Notes Patient has been identified by name and date of : Yes Pharmacy phones for refill(s): Requested Prescriptions Pending Prescriptions Disp Refills ARIPiprazole (ABILIFY) 2 mg tablet 30 tablet 3 Sig: Take 1 tablet by mouth once daily. Date of last office visit in primary care: 09/23/2023 Date of next office visit in primary care: Visit date not found Pharmacy will let Patient know that she needs to schedule an appt for future refills. Please advise. Thank you. Lisette Corona LPN. documented in this encounter [facility] 10-19-2023 Note . MICRO - Microbiology PROCEDURE: Culture Respiratory with Gram Stain [^1 *1] SOURCE: Tracheal Aspirate BODY SITE: COLLECTED DATE/TIME: 2023 10:58 EDT RECEIVED DATE/TIME: 2023 12:07 EDT START DATE/TIME: 2023 12:07 EDT FREE TEXT SOURCE: FINAL REPORTS Final Report [] Verified Date/Time/Personnel: 10/19/2023 10:55 EDT Light Moraxella catarrhalis Beta-Lactamase: Positive Normal respiratory ailyn absent. PRELIMINARY REPORTS Preliminary Report [] Verified Date/Time/Personnel: 10/18/2023 09:51 EDT Negative for respiratory pathogens at 24 hours. STAINS GS [] Verified Date/Time/Personnel: 2023 14:14 EDT 3+ Polymorphonuclear cells 2+ Gram Positive Cocci Interpretive Data ^1: Culture Respiratory with Gram Stain Requests for Mycoplasma, Legionella, Fungi, Mycobacteria, Chlamydia, and Viruses require ordering of those individual tests. Performing Locations *1: This test was performed at: [facility], [address] [place] [address], [phone] , [facility] ([place]) 10-12-2023 Note [facility] 10-12-2023 Hospital course Narrative Images from the original note were not included. Discharge Summary Hospitalist Discharge Summary Luiza Higgins Yadira : 1955 Admit date: 09/26/2023 Discharge date: 10/12/2023 Admitting Physician: Charlene [facility] MD Primary Care Physician: Joy Stahl Visit Status: Inpatient Code Status: Full Code BRIEF HOSPITAL COURSE: This is a 67-year-old female with history of COPD, HFpEF, previous stroke/SDH, seizures, hypertension, hyperlipidemia, crest syndrome, EtOH abuse, anxiety/depression who presented with seizures requiring intubation at outside hospital. She was transferred to the ICU at [facility]. Her stay was complicated by extubation and reintubation x 2 and MSSA pneumonia. She underwent a trach and PEG on 10/04/2023. She underwent a bronc on 10/06/2023 due to increased peak pressures but no mucous plugs were found. The patient did tolerate a PSV but has full vent support at night. Acute on chronic hypoxic respiratory failure-multifactorial due to MSSA pneumonia, COPD/asthma, VCD/stenosis Seizure disorder/bihemispheric MCA strokes/recent traumatic SDH (08/2023) - seen by neurology; on Keppra HFrEF-seen by cardiology and medically optimized PEG site pain-as needed oxycodone Anemia-hemoglobin stable; no signs of active bleeding Hypertension - BP controlled; was hypotensive earlier in stay requiring levophed gtt Hx of prior DVT Hx of EtOH abuse Past Medical History: Diagnosis Date Asthma CAD (coronary artery disease) Cerebral artery occlusion with cerebral infarction (HCC) COPD (chronic obstructive pulmonary disease) (HCC) Hypertension Procedures: Trach/PEG 10/03, bronch 10/05 Hospital Course: See above. See discharge diagnoses list above and medication adjustments below in med rec.The patient is discharged in improved and stable condition. Consults: IP WOUND CARE NURSE CONSULT TO EVAL IP CONSULT TO DIETITIAN IP CONSULT TO NEUROLOGY IP CONSULT TO DIETITIAN IP CONSULT TO PALLIATIVE CARE IP CONSULT TO GENERAL SURGERY IP CONSULT TO CARDIOLOGY IP CONSULT TO PULMONOLOGY Discharge Instructions: Diet: Dietary Orders (From admission, onward) Start Ordered 10/04/23 1800 Diet, tube feeding no tray Orogastric; Vital 1.5 Kelvin; Continuous; Yes; 10; Q 4 Hours; 10; 35; Water; Tap water; 30; Q 4 Hours Diet effective now Question Answer Comment Route: Orogastric Formula: Vital 1.5 Kelvin Delivery Method: Continuous Continuous Advance Tube Feeding? Yes Advancement Volume (mL/hr) 10 Advancement Frequency: Q 4 Hours Continuous Initial Rate (Recommended mL/hr) 10 Continuous Goal Rate (Recommended mL/hr) 35 Flush type: Water Water type: Tap water Flush volume (mL): 30 Flush frequency: Q 4 Hours 10/04/23 1257 Activity: as tolerated Recommended Outpatient Tests: Disposition: Patient discharged in stable condition to LTAC. Greater than 31 minutes spent discharging the patient and coming up with patient discharge plan. Vitals: BP (!) 98/47 (BP Location: Right arm, Patient Position: Lying) Pulse 93 Temp 36.7 C (98 F) (Temporal) Resp 16 Ht 5' 2.01 (1.575 m) Wt 156 lb 8.4 oz (71 kg) SpO2 93% PF 27 L/min BMI 28.62 kg/m Pulse Ox: SpO2 Av.4 % Min: 91 % Max: 100 % Supplemental O2: O2 Flow Rate (L/min): 2 L/min Physical Exam Constitutional: General: She is not in acute distress. HENT: Head: Normocephalic and atraumatic. Mouth/Throat: Mouth: Mucous membranes are moist. Eyes: Extraocular Movements: Extraocular movements intact. Conjunctiva/sclera: Conjunctivae normal. Neck: Comments: +trach, on vent Cardiovascular: Rate and Rhythm: Normal rate and regular rhythm. Pulmonary: Effort: Pulmonary effort is normal. Comments: +coarse BS's Abdominal: General: There is no distension. Palpations: Abdomen is soft. Tenderness: There is no abdominal tenderness. Musculoskeletal: General: No swelling. Skin: General: Skin is warm and dry. Neurological: General: No focal deficit present. Mental Status: She is alert and oriented to person, place, and time. Comments: +appears globally weak Psychiatric: Mood and Affect: Mood normal. Judgment: Judgment normal. LABS: Recent Labs 10/10/23 0112 10/11/23 0357 10/12/23 0439 NA 142 143 142 K 3.7 3.5 3.5 CL 97* 100 99 CO2 35* 34* 35* BUN 33* 31* 30* CREATININE 0.55 0.55 0.58 GLUCOSE 103* 97 105* CALCIUM 9.8 9.1 9.8 Recent Labs 10/10/23 0112 10/11/23 0357 10/12/23 0439 WBC 9.5 11.2* 9.7 RBC 2.47* 2.47* 2.43* HGB 7.3* 7.2* 7.2* HCT 23.1* 23.4* 22.9* MCV 93.5 94.7 94.2 MCH 29.6 29.1 29.6 MCHC 31.6 30.8 31.4 RDW 15.1* 14.8 14.8 PLT 273 270 254 MPV 11.0 10.9 10.9 Discharge Medications: Medication List START taking these medications aspirin 81 MG chewable tablet 1 tablet (81 mg) by Per G Tube route daily. Start taking on: October 13, 2023 budesonide 0.5 MG/2ML nebulizer solution Commonly known as: Pulmicort Take 2 mL (0.5 mg) by nebulization in the morning. Rinse mouth with water after use to reduce aftertaste and incidence of candidiasis. Do not swallow.. Start taking on: October 13, 2023 cholecalciferol 25 MCG (1000 UT) tablet Commonly known as: Vitamin D-3 1 tablet (1,000 Units) by Per G Tube route daily. Start taking on: October 13, 2023 Replaces: cholecalciferol 25 MCG (1000 UT) capsule enoxaparin 40 MG/0.4ML solution prefilled syringe Commonly known as: Lovenox Inject 0.4 mL (40 mg) under the skin every 24 hours. Start taking on: October 13, 2023 furosemide 8 MG/ML solution Commonly known as: Lasix 2.5 mL (20 mg) by Per G Tube route daily. Start taking on: October 13, 2023 Replaces: furosemide 20 MG tablet gabapentin 300 MG/6ML solution Commonly known as: Neurontin 6 mL (300 mg) by Per G Tube route Nightly. Replaces: gabapentin 300 MG capsule ipratropium-albuterol 0.5-2.5 mg/3 mL nebulizer solution Commonly known as: Duo-Neb Take 3 mL by nebulization every 4 hours. levETIRAcetam 100 MG/ML solution Commonly known as: Keppra 10 mL (1,000 mg) by Per G Tube route 2 times daily. oxyCODONE 5 MG immediate release tablet Commonly known as: Roxicodone 1 tablet (5 mg) by Per G Tube route every 6 hours as needed for severe pain (7-10) or moderate pain (4-6) for up to 3 days. polyethylene glycol (PEG) 3350 17 g packet Commonly known as: Miralax Take 17 g by mouth 2 times daily for 3 days. PEG tube Propylene Glycol-Glycerin 1-0.3 % solution Commonly known as: Artificial tears Administer 1 drop into both eyes 3 times daily as needed (dry eyes). Replaces: polyvinyl alcohol 1.4 % ophthalmic solution QUEtiapine 50 MG tablet Commonly known as: SEROquel 1 tablet (50 mg) by Per G Tube route Nightly. Senna 8.8 MG/5ML syrup Commonly known as: Senokot 10 mL by Per G Tube route 2 times daily. Replaces: sennosides 8.6 MG tablet CHANGE how you take these medications ARIPiprazole 2 MG tablet Commonly known as: Abilify 1 tablet (2 mg) by Per G Tube route daily. Start taking on: October 13, 2023 What changed: how to take this when to take this atorvastatin 40 MG tablet Commonly known as: Lipitor 1 tablet (40 mg) by Per G Tube route Nightly. What changed: how to take this escitalopram 20 MG tablet Commonly known as: Lexapro 1 tablet (20 mg) by Per G Tube route daily. Start taking on: October 13, 2023 What changed: how much to take how to take this folic acid 1 MG tablet Commonly known as: Folvite 1 tablet (1 mg) by Per G Tube route in the morning. Start taking on: October 13, 2023 What changed: how to take this rOPINIRole 1 MG tablet Commonly known as: Requip 1 tablet (1 mg) by Per G Tube route Nightly. What changed: how to take this STOP taking these medications albuterol 108 (90 Base) MCG/ACT inhaler bisacodyl 10 MG suppository Commonly known as: Dulcolax cholecalciferol 25 MCG (1000 UT) capsule Commonly known as: Vitamin D-3 Replaced by: cholecalciferol 25 MCG (1000 UT) tablet DULoxetine [address] capsule Commonly known as: Cymbalta furosemide 20 MG tablet Commonly known as: Lasix Replaced by: furosemide 8 MG/ML solution gabapentin 300 MG capsule Commonly known as: Neurontin Replaced by: gabapentin 300 MG/6ML solution hydrogen peroxide 3 % external solution hydrOXYzine pamoate 25 MG capsule Commonly known as: Vistaril metoprolol succinate XL 25 MG 24 hr tablet Commonly known as: Toprol-XL pantoprazole 40 MG EC tablet Commonly known as: ProtoNix phenytoin 125 MG/5ML suspension Commonly known as: Dilantin polyvinyl alcohol 1.4 % ophthalmic solution Commonly known as: Liquifilm Tears Replaced by: Propylene Glycol-Glycerin 1-0.3 % solution potassium chloride CR 20 MEQ ER tablet Commonly known as: Klor-Con M20 sennosides 8.6 MG tablet Commonly known as: Senokot Replaced by: Senna 8.8 MG/5ML syrup zolpidem 10 MG tablet Commonly known as: Ambien Where to Get Your Medications You can get these medications from any pharmacy Bring a paper prescription for each of these medications oxyCODONE 5 MG immediate release tablet Information about where to get these medications is not yet available Ask your nurse or doctor about these medications ARIPiprazole 2 MG tablet aspirin 81 MG chewable tablet atorvastatin 40 MG tablet budesonide 0.5 MG/2ML nebulizer solution cholecalciferol 25 MCG (1000 UT) tablet enoxaparin 40 MG/0.4ML solution prefilled syringe escitalopram 20 MG tablet folic acid 1 MG tablet furosemide 8 MG/ML solution gabapentin 300 MG/6ML solution ipratropium-albuterol 0.5-2.5 mg/3 mL nebulizer solution levETIRAcetam 100 MG/ML solution polyethylene glycol (PEG) 3350 17 g packet Propylene Glycol-Glycerin 1-0.3 % solution QUEtiapine 50 MG tablet rOPINIRole 1 MG tablet Senna 8.8 MG/5ML syrup Recommended Follow-up: No follow-up provider specified. Complexity of Follow up: [] Moderate Complexity: follow up within 7-14 calendar days (39336) [x] Severe Complexity: follow up within 7 calendar days (75710) Follow up Testing, Pending results or Referrals at Transitional Care Visit: [] yes [x] no Instructions to MA: Please call patient on day after discharge (must document patient contacted within 2 business days of discharge). Follow up questions for MA: 1. Did you get medications filled and taking them as instructed from discharge? 2. Are you following your discharge instructions from your hospital stay? 3. Please confirm patient is scheduled for a follow up appointment within the above time frame. Signed: Crys Canseco DO Division of Hospitalist Medicine [facility] 10/12/2023, 3:29 PM documented in this encounter [facility] 10-12-2023 History of Present illness Narrative 10/12/23 1317 Patient Parameters Ventilator On Yes Vent ID [id number] $ Invasive Vent Daily Charge - Subsequent Yes Patient position Semi fowlers (30-45 ) SpO2 91 % Suctioning/Secretions Suction Device Inline catheter Suction Type Tracheal Surgical Airway Cuffed 6.5 Placement Date/Time: 10/04/23 1200 Surgical Airway Type: Tracheostomy Style: Cuffed Size (mm): 6.5 Status Secured;Ventilator (Simultaneous filing. User may be unaware of other data.) Site Assessment Clean;Dry (Simultaneous filing. User may be unaware of other data.) Ties Assessment Secure;Intact Airway Interventions Safety Equipment at Bedside Bag Valve Mask (Simultaneous filing. User may be unaware of other data.) Settings Humidification Heater Heater Temperature 37 C (98.6 F) Vent Mode SPONT Spontaneous Type PS FiO2 (%) 30 % PEEP/CPAP (cm H2O) 8 cm H20 Sensitivity 2 PSV 5 cmH2O Readings PIP Observed (cm H2O) 13 cm H2O MAP (cm H2O) 9 Resp Rate Observed 21 Vt (observed, mL) 251 mL Minute Ventilation (L/min) 4 L/min I:E Ratio 1:2 Alarms High RR Alarm 40 breaths per minute Insp Pressure High (cm H2O) 50 cm H2O MV High (L/min) 20 L/min MV Low (L/min) 2 L/min Vt High (marcellus) (mL) 910 mL Vt Low (marcellus) (mL) 75 mL Vt High (spont) (mL) 910 mL Vt Low (spont) (mL) 75 mL Apnea Interval (sec) 20 seconds Nurse Call Plugged In Yes IHI Ventilator Associated Pneumonia Bundle Head of Bed Elevated HOB 30 Spontaneous Breathing Trial Weaning Start Time 1317 Weaning Tidal Volume 251 mL Weaning Respiratory Rate 21 Spontaneous Minute Volume (MV) 4 Total RSBI 106 Weaning Tolerance Good Weaning Stop Time 1518 Weaning Duration (min) (2 hours) Spontaneous Breathing Trial (SBT) Outcome SBT Passed Attempted treatment. Pt wished to rest prior to her discharge today at 4pm. Will continue to follow Images from the original note were not included. OCCUPATIONAL THERAPY [facility] Treatment Note Name/MRN: Luiza May ([id number]) Date of : 1955 Age: 67 y.o. Room/Bed: 7[facility] Discharge Recommendation: IP Rehab Equipment Needed: (TBD NEXT LEVEL OF CARE) Assessment Min assist sit<->stand, standing, LE dressing and transfers. See above for dc recommendation. Subjective Pt. Sitting on the BSC at the start but now sitting EOB with mod indep. Pt. Does not appear to be in any pain. Pt's daughter, son in-law and brother (who is also a pt. In the room next to her's) are present. Medical Precautions: No active isolations Proper PPE donned/doffed in accordance with facility standards. Fall Risk: Garcia Fall Risk Score: 70 (High Risk) Family/Caregiver Present: Daughter, son in-law and brother Objective ADLs Grooming: Supervision, after setup to wash/dry hands and face, cob hair sitting EOB LE Dressing: Min Assist to don sock on L foot while sitting EOB Bed Mobility Sitting EOB Transfers/Mobility Sit to stand: Min Assist Stand to sit: Min Assist Stand step: Min Assist Sitting balance: Modified Independent Standing balance: Min Assist Cognition - Arousal/alertness: appropriate responses to stimuli - Following commands: follows one step commands consistently - Insights: fully aware of deficits - Initiation: does not require cues Plan Continue acute OT per plan of care. Safety/Education Safety Safety Devices in place: All fall risk precautions in place, call light within reach, patient at risk for falls, nurse notified, no alarms engaged upon entry, and patient left sitting EOB Restraints: No Education Education Given To: patient Education Provided: OT Role, Plan of Care, ADL Adaptive Strategies, Transfer Training, Fall Prevention Education, and Benefits of Increasing Activity Education Method: Verbal and Demonstration Barriers to Learning: None Education Outcome: Verbalized Understanding and Demonstrated Understanding AM-PAC AM-PAC Inpatient Daily Activity Raw Score: 14 ADL Inpatient CMS G-Code Modifier: CK Goals Patient Stated Goal: none stated Encounter Problems Encounter Problems (Active) Balance Patient will maintain dynamic standing balance for 2 minutes with SBA in order to demonstrate decreased risk of falling. (Progressing) Start: 10/01/23 Expected End: 10/29/23 Patient will maintain dynamic sitting balance for 5 minutes with supervision in order to demonstrate improved postural control and prepare for out of bed mobility. (Goal Met) Start: 10/01/23 Expected End: 10/29/23 Resolved: 10/12/23 Dressing Upper Extremities Patient will complete upper body dressing SBA (Not Addressed) Start: 10/01/23 Expected End: 10/29/23 Dressings Lower Extremities Patient will dress lower body SBA (Progressing) Start: 10/01/23 Expected End: 10/29/23 Grooming Patient will complete daily grooming tasks SBA (Progressing) Start: 10/01/23 Expected End: 10/29/23 Toileting Patient will complete toileting tasks at bedside commode with SBA. (Not Addressed) Start: 10/01/23 Expected End: 10/29/23 Transfers BSC transfer min assist (Progressing) Start: 10/01/23 Expected End: 10/29/23 Therapy Time Individual Co-treatment Time In 1035 Time Out 1045 Minutes 10 Timed Code Treatment Minutes: 10 Minutes (selfcare-1) EILEEN Alba Pt is working with OT at this time. Will continue to follow 10/12/23 0753 Patient Parameters Ventilator On Yes Vent ID [id number] $ Invasive Vent Daily Charge - Subsequent Yes Patient position Semi fowlers (30-45 ) SpO2 99 % Surgical Airway Cuffed 6.5 Placement Date/Time: 10/04/23 1200 Surgical Airway Type: Tracheostomy Style: Cuffed Size (mm): 6.5 Status Secured;Ventilator Site Assessment Clean;Dry Ties Assessment Secure;Intact Cuff Pressure (cm H2O) 22 cm H2O Airway Interventions Safety Equipment at Bedside Bag Valve Mask Settings Humidification Heater Heater Temperature 37 C (98.6 F) Vent Mode SPONT Spontaneous Type PS FiO2 (%) 30 % PEEP/CPAP (cm H2O) 8 cm H20 Sensitivity 2 PSV 5 cmH2O Readings PIP Observed (cm H2O) 14 cm H2O MAP (cm H2O) 10 Resp Rate Observed 16 Vt (observed, mL) 320 mL Minute Ventilation (L/min) 3 L/min I:E Ratio 1:3 Alarms High RR Alarm 40 breaths per minute Insp Pressure High (cm H2O) 50 cm H2O MV High (L/min) 20 L/min MV Low (L/min) 2 L/min Vt High (marcellus) (mL) 910 mL Vt Low (marcellus) (mL) 75 mL Vt High (spont) (mL) 910 mL Vt Low (spont) (mL) 75 mL Apnea Interval (sec) 20 seconds Nurse Call Plugged In Yes Wean Screen SpO2>/=88% Yes FiO2</=50% Yes PEEP </=8cmH2O Yes HR <140 BPM Yes RR </= 35 breaths/min Yes MAP >/= 65mmHg Yes Arterial pH >7.30 and <7.50 Yes Safety Screen Spontaneous Breathing Trial (SBT) Proceed with SBT - No exclusion criteria met Spontaneous Breathing Trial Weaning Start Time 0753 Weaning Tidal Volume 320 mL Weaning Respiratory Rate 18 Spontaneous Minute Volume (MV) 3 Total RSBI 85 Weaning Tolerance Good Weaning Stop Time 0953 Weaning Duration (min) (2 hours) Spontaneous Breathing Trial (SBT) Outcome SBT Passed PULMONOLOGY CONSULT PROGRESS NOTE 10/12/2023 Hospital LOS: LOS: 16 days PULMONARY FOLLOW UP FOR: Tracheostomy Interval History/Event Changes: 67-year-old female who was transferred from [facility] for acute on chronic hypoxemic and hypercapnic respiratory failure related to seizures requiring intubation, has been treated for MSSA pneumonia but failed multiple extubation, now s/p trach/PEG/07/28. Subjectively: Sitting up in chair at bedside, NAD, reports breathing is stable, no increased secretions or SOB. Tolerating PSV trials. Allergies Allergies Allergen Reactions Tetanus Toxoid Swelling Review of Systems A pertinent review of systems was performed and was otherwise non-contributory. Vitals- BP (!) 98/47 (BP Location: Right arm, Patient Position: Lying) Pulse 93 Temp 36.7 C (98 F) (Temporal) Resp 16 Ht 5' 2.01 (1.575 m) Wt 156 lb 8.4 oz (71 kg) SpO2 96% PF 27 L/min BMI 28.62 kg/m Tmax: Temp (24hrs), Av.3 C (99.2 F), Min:36.7 C (98 F), Max:37.7 C (99.9 F) Hemodynamics: Cuff: Systolic (24hrs), Av , Min:98 , Max:102 /Diastolic (24hrs), Av, Min:45, Max:52 Cuff MAP:MAP (mmHg) Av Min: 32 Max: 118 P: Pulse Av.8 Min: 85 Max: 95 Observed RR: Resp Av.7 Min: 16 Max: 25 Observed O2 sats: SpO2 Av.7 % Min: 87 % Max: 100 % Intake/Output Summary (Last 24 hours) at 10/12/2023 1307 Last data filed at 10/12/2023 0626 Gross per 24 hour Intake 1384 ml Output -- Net 1384 ml Physical exam- Physical Exam Constitutional: Appearance: Normal appearance. HENT: Head: Normocephalic and atraumatic. Right Ear: External ear normal. Left Ear: External ear normal. Nose: Nose normal. No congestion. Mouth/Throat: Pharynx: Oropharynx is clear. No oropharyngeal exudate. Eyes: General: No scleral icterus. Conjunctiva/sclera: Conjunctivae normal. Neck: Trachea: Tracheostomy present. Comments: Trach pulled out about 1-1.5 inches, was apparently pulled as patient was getting cleaned up in chair with daughter. Patient in no distress, replaced and ties secured with RN at bedside, suctioned. Bilat breath sounds, receiving good TV. Cardiovascular: Rate and Rhythm: Normal rate and regular rhythm. Heart sounds: No murmur heard. Pulmonary: Effort: Pulmonary effort is normal. Breath sounds: Rhonchi present. Neurological: Mental Status: She is alert and oriented to person, place, and time. Mental status is at baseline. Routine labs: Recent Labs 10/10/23 0112 10/11/23 0357 10/12/23 0439 WBC 9.5 11.2* 9.7 HGB 7.3* 7.2* 7.2* HCT 23.1* 23.4* 22.9* PLT 273 270 254 Recent Labs 10/10/23 0112 10/11/23 0357 10/12/23 0439 NA 142 143 142 K 3.7 3.5 3.5 CL 97* 100 99 CO2 35* 34* 35* BUN 33* 31* 30* CREATININE 0.55 0.55 0.58 MG 2.0 2.2 2.2 Other Laboratory - Imaging Studies: Reviewed and as per electronic record. CxR/CT images reviewed by me when available. ASSESSMENT AND PLAN: Emphysema MSSA PNA, treated S/p trach/PEG/07/28 Chronic hypercapnic and hypoxemic respiratory failure Tolerated PSV yesterday, continue during the day, will start extending duration tomorrow to 4 hours. Full vent support at night, settings have been 300 16 35 8 Complete prednisone taper for COPD exacerbation C/w pulmicort and duonebs Routine trach care OK to transfer to [facility] when able Images from the original note were not included. [facility] Progress Note Luiza May AGE: 67 y.o. GENDER: female : 1955 Subjective: HISTORY of PRESENT ILLNESS HPI Luiza May is a 67 y.o. female who presents for a wound care follow up. HPI: Ms. May is a 67yo F with PMHx of COPD with Chronic Hypoxic respiratory failure on 2L of Oxygen and BiPAP at night (poor compliance) s/p tracheostomy (2022), HFpEF with Takotsubo Cardiomyopathy, CVA with chronic dysphagia and aspiration on altered diet with prior PEG tube (2022), hemorrhagic CVA s/p Surgical intervention at [facility] (2021), GERD, h/o VTE, Hypertension, depression, anxiety, h/o Breast Cancer, former EtOH abuse, Seizure disorder on Dilantin was sent to [facility] from [facility] for management of Encephalopathy secondary to Acute on chronic Hypoxic Hypercapnic respiratory failure and what seem to be a break through seizure. Wound Care consulted for left heel, left forearm and lip. Patient resting in bed. Treatment completed today by this service. PAST MEDICAL HISTORY Past Medical History: Diagnosis Date Asthma CAD (coronary artery disease) Cerebral artery occlusion with cerebral infarction (HCC) COPD (chronic obstructive pulmonary disease) (HCC) Hypertension PAST SURGICAL HISTORY Past Surgical History: Procedure Laterality Date APPENDECTOMY CHOLECYSTECTOMY COLONOSCOPY COLONOSCOPY CT CHEST ANGIOGRAM W AND/OR WO IV CONTRAST 07/26/2022 CT CHEST ANGIOGRAM W AND/OR WO IV CONTRAST 07/26/[address] [facility] [address] IMAGING FAMILY HISTORY No family history on file. SOCIAL HISTORY Social History Tobacco Use Smoking status: Former Types: Cigarettes Quit date: 07/13/2013 Years since quittin.2 Vaping Use Vaping Use: Never used Substance Use Topics Alcohol use: No Drug use: No ALLERGIES Allergies Allergen Reactions Tetanus Toxoid Swelling MEDICATIONS No current facility-administered medications on file prior to encounter. Current Outpatient Medications on File Prior to Encounter Medication Sig Dispense Refill albuterol 108 (90 Base) MCG/ACT inhaler Inhale 2 puffs as needed. 4 times daily as needed ARIPiprazole (Abilify) 2 MG tablet Take 2 mg by mouth in the morning. atorvastatin (Lipitor) 40 MG tablet Take 1 tablet by mouth Nightly. bisacodyl (Dulcolax) 10 MG suppository Insert 10 mg into the rectum Daily as needed. cholecalciferol (Vitamin D-3) 25 MCG (1000 UT) capsule Take 1,000 Units by mouth in the morning. DULoxetine (Cymbalta) [address] capsule Take 60 mg by mouth daily. escitalopram (Lexapro) 20 MG tablet Take 10 mg by mouth daily. furosemide (Lasix) 20 MG tablet Take 40 mg by mouth daily. gabapentin (Neurontin) 300 MG capsule Take 300 mg by mouth Nightly. hydrogen peroxide 3 % external solution Apply topically as needed (Trach care). hydrOXYzine pamoate (Vistaril) 25 MG capsule Take 25 mg by mouth every 8 hours as needed. metoprolol succinate XL (Toprol-XL) 25 MG 24 hr tablet Take 25 mg by mouth daily. Do not crush or chew. pantoprazole (ProtoNix) 40 MG EC tablet Take 40 mg by mouth every morning (before breakfast). Do not crush, chew, or split. phenytoin (Dilantin) 125 MG/5ML suspension Take 100 mg by mouth 2 times daily. polyvinyl alcohol (Liquifilm Tears) 1.4 % ophthalmic solution Administer 1 drop into both eyes if needed for dry eyes. potassium chloride CR (Klor-Con M20) 20 MEQ ER tablet Take 40 mEq by mouth daily. Do not crush or chew. sennosides (Senokot) 8.6 MG tablet Take 8.6 mg by mouth in the morning. zolpidem (Ambien) 10 MG tablet Take 10 mg by mouth Nightly as needed for sleep. [DISCONTINUED] budesonide (Pulmicort) 0.5 MG/2ML nebulizer solution Take 2 mL (0.5 mg) by nebulization in the morning. Rinse mouth with water after use to reduce aftertaste and incidence of candidiasis. Do not swallow.. Do not start before August 05, 2022. 60 mL 11 [DISCONTINUED] folic acid (Folvite) 1 MG tablet Take 1 mg by mouth in the morning. [DISCONTINUED] levalbuterol (Xopenex) 1.25 MG/3ML nebulizer solution Take 3 mL (1.25 mg) by nebulization in the morning and 3 mL (1.25 mg) at noon and 3 mL (1.25 mg) in the evening. 0 [DISCONTINUED] LORazepam (Ativan) 0.5 MG tablet Take 1 tablet (0.5 mg) by mouth every 6 hours as needed for anxiety for up to 10 days. 30 tablet 0 [DISCONTINUED] losartan (Cozaar) 25 MG tablet Take 25 mg by mouth in the morning. [DISCONTINUED] rOPINIRole (Requip) 1 MG tablet Take 1 mg by mouth Nightly. [DISCONTINUED] tiotropium (Spiriva) [address] 18 mcg into inhaler and inhale. REVIEW OF SYSTEMS Pertinent items are noted in HPI. Objective: BP (!) 98/47 (BP Location: Right arm, Patient Position: Lying) Pulse 93 Temp 36.7 C (98 F) (Temporal) Resp 16 Ht 1.575 m (5' 2.01 ) Wt 71 kg (156 lb 8.4 oz) SpO2 96% PF 27 L/min BMI 28.62 kg/m PHYSICAL EXAM General appearance: in no apparent distress, alert, and cooperative Skin: warm and dry Pulmonary: in no respiratory distress , trached Left forearm: RESOLVED Bilateral Buttock: Red blanchable tissue. Excoriation noted. 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 Leave CHECO. Apply TID and PRN. -q2hr/PRN turns Reposition q2hrs Incontinent check q2hrs Waffle cushion to chair Nutritional support Wound Care to follow Recommend to follow up at [facility] wound care center after hospital discharge. Any questions or concerns please secure chat [facility] wound/ostomy . Thank you for the consult! I personally obtained the starr and critical portions of the history and physical exam. I reviewed the labs, imaging studies, and electronic medical record. I reviewed the chart documentation and discussed the patient with treatment team members. I have edited the note to reflect my clinical findings and my assessment and plan. Please note, the time of this note does not reflect the time I saw this patient today, but the time of this documentaton. Portions of this note including HPI, ROS, impression/plan, and examination may have been copied forward from admission to today as to provide important historical information essential in contributing to medical decision making. Documentation has been reviewed and edited as necessary to support clinical decision making for today's visit and to reflect my own independent evaluation of this patient. Decision making for today's visit and to reflect my own independent evaluation of this patient. Ps trial started Images from the original note were not included. Hospitalist Progress Note 10/11/2023 Subjective: Admit Date: 09/26/2023 PCP: Joy Stahl Room#: [id number] BRIEF HOSPITAL COURSE: Mrs May is a 67yoF with hx of COPD on 4L baseline, TIO with CPAP, HFpEF, prior SDH 01/08/22 following a fall, prior MCA stroke with residual dysphagia, seizures, prior DVT- no OAC, HTN, HPL, Crest, anxiety, depression, alcohol abuse, and recent admit at [facility] after fall 08/05/23 with parafalcine SDH whom presented to [facility] on 09/25 with recurrent seizures and hypercapnia. Loaded with keppra and redosed with dilantin for seizures. She did not respond to use of NIV for hypercapnia (pH 7.1) and was intubated at [facility]. Transferred to ICU at [facility]. Her ICU stay complicated by MSSA PNA. Extubation and reintubation x 2. Fecal impaction resolved by manual disimpaction. Now s/p Trach/PEG 10/04/23. Bronch on 10/06/23 due to increased peak pressures and low TVs, no mucous plugs discovered. Vent adjustments. Working towards LTAC transfer. Interval History: 10/09 Seen at bedside. at the bedside. Asking when she will be able to come off the vent replied days to weeks depending on how she progress; often continue progression at LTAC. Discussed with pulm. Pulm did PSV and tolerated. Discussed with nursing. 10/10 Seen at bedside. PEG pain improved. Endorsing loose stool. Discussed at [facility] Diet, tube feeding no tray Orogastric; Vital 1.5 Kelvin; Continuous; Yes; 10; Q 4 Hours; 10; 35; Water; Tap water; 30; Q 4 Hours 24HR INTAKE/OUTPUT: Intake/Output Summary (Last 24 hours) at 10/11/20231736 Last data filed at 10/10/2023 2325 Gross per 24 hour Intake 400 ml Output -- Net 400 ml Past Medical History: Past Medical History: Diagnosis Date Asthma CAD (coronary artery disease) Cerebral artery occlusion with cerebral infarction (HCC) COPD (chronic obstructive pulmonary disease) (HCC) Hypertension LABS: CBC: Recent Labs 10/09/2342310/10/2311110/11/23356 WBC 10.7 9.5 11.2* RBC 2.84* 2.47* 2.47* HGB 8.3* 7.3* 7.2* HCT 26.8* 23.1* 23.4* MCV 94.4 93.5 94.7 RDW 15.4* 15.1* 14.8 PLT 288 273 270 BMP: Recent Labs 10/09/2342310/10/2311110/11/23356 NA 145 142 143 K 4.2 3.7 3.5 CL 100 97* 100 CO2 32* 35* 34* BUN 31* 33* 31* CREATININE 0.59 0.55 0.55 GLUCOSE 93 103* 97 CALCIUM 10.4 9.8 9.1 ANIONGAP 12 10 9 LIVER PROFILE:No results for input(s): AST , ALT , BILITOT , ALKPHOS , PROT in the last 72 hours. No lab exists for component: LABALBU PT/INR: No results for input(s): PROTIME , INR in the last 72 hours. CARDIAC ENZYMES: No results for input(s): TROPONINI in the last 72 hours. Procalcitonin: No results found for: PROCAL COVID-19 PCR: No results for input(s): COVID19 in the last 72 hours. Objective: Vitals: BP 110/66 (BP Location: Right arm, Patient Position: Lying) Pulse 80 Temp 36.5 C (97.7 F) (Temporal) Resp 16 Ht 5' 2.01 (1.575 m) Wt 156 lb 8.4 oz (71 kg) SpO2 98% PF 48 L/min BMI 28.62 kg/m Pulse Ox: SpO2 Av.9 % Min: 95 % Max: 100 % Supplemental O2: O2 Flow Rate (L/min): 2 L/min Physical Exam HENT: Head: Normocephalic. Nose: Nose normal. Eyes: Extraocular Movements: Extraocular movements intact. Conjunctiva/sclera: Conjunctivae normal. Cardiovascular: Rate and Rhythm: Normal rate and regular rhythm. Pulmonary: Effort: Pulmonary effort is normal. Comments: Trach on vent Abdominal: Palpations: Abdomen is soft. Comments: peg Musculoskeletal: General: Normal range of motion. Cervical back: Normal range of motion. Skin: General: Skin is warm. Neurological: General: No focal deficit present. Mental Status: She is alert. Psychiatric: Mood and Affect: Mood normal. Behavior: Behavior normal. Medications: Scheduled PRN ARIPiprazole, 2 mg, Oral, Daily aspirin, 81 mg, Per G Tube, Daily atorvastatin, 40 mg, Per G Tube, Nightly budesonide, 0.5 mg, Nebulization, Daily cholecalciferol, 1,000 Units, Oral, Daily [Held by provider] DULoxetine, 60 mg, Oral, Daily enoxaparin, 40 mg, SubCUTAneous, Daily escitalopram, 20 mg, Per G Tube, Daily folic acid, 1 mg, Per G Tube, Daily furosemide, 20 mg, Per G Tube, Daily gabapentin, 300 mg, Per G Tube, Nightly ipratropium-albuterol, 3 mL, Nebulization, Q4H lansoprazole, 30 mg, Nasogastric, qAM AC levETIRAcetam, 1,000 mg, Per G Tube, BID metoprolol succinate XL, 25 mg, Oral, Daily polyethylene glycol (PEG) 3350, 17 g, Per G Tube, BID predniSONE, 5 mg, Oral, Daily artificial tears, 1 drop, Both Eyes, Daily QUEtiapine, 50 mg, Per G Tube, Daily rOPINIRole, 1 mg, Oral, Nightly Senna, 10 mL, Per G Tube, BID stomahesive in petrolatum, , Topical, q8h thiamine, 100 mg, Per PEG Tube, Daily PRN medications: acetaminophen, HYDROmorphone, hydrOXYzine pamoate, melatonin, naloxone, ondansetron ODT OR ondansetron, oxyCODONE, Propylene Glycol-Glycerin, sodium chloride, sodium chloride, stomahesive in petrolatum, zolpidem Continuous Assessment Data: (CAT1) Reviewed 3 or more notes from different specialty or health system (each=1). (LOW: 2x CAT1 or independent historian MOD: 3x CAT1 or 1x CAT3 EXTENSIVE: 3x CAT1 and 1x CAT3) Acute, acute on chronic, unstable/uncontrolled chronic problems/diagnoses: Acute on chronic hypoxic hypercarbic resp failure likely 2/2 vocal cord dysfunction vs stenosis s/p trach (#6 shiley on 10/04/23), MSSA PNA, angely pleural effusions, Hx COPD Breakthrough GTC seizure, hx bi-hemispheric MCA strokes, recent traumatic SDH (08/05/23), prev SDH requiring crani/evac (01/2022) HFrEF (45%) Anemia Constipation Debility PEG site pain Stable chronic problems affecting care, new non-acute diagnoses: Hx of Takotsubo CM, HTN HPL Hx Crest syndrome- stable Hx prior DVT (07/2022, not on OAC) Hx anxiety/depression Hx alcohol abuse Plan As a result of the above findings & factors, the following mgmt was pursued: - Pulm following vent setting progressing: Tolerated PSV yesterday, continue during the day, will start extending duration. Full vent support at night, settings have been 300 16 35 8 - LTAC appeal pending -Breakthrough sz 2/2 subtherapeutic dilantin level--Neuro CC has s/o but rec continue keppra 1gm BID. -ECHO as above with EF 45% and unchanged 2+ Mitral insuff. Cards c/s--rec'd it could be takotsubo CM again and could consider low dose GDMT. Cont asa/statin, lasix decreased to home dose of 20mg. -Continue bowel regimen for now -to follow outpt with [facility] NSGY. -Anxiety severe, but improving. Cymbalta held as it cannot be crushed for PEG,continue lexapro. gabapentin nightly. On seroquel and prn vistaril - resume TF - am labs, replace lytes prn - PT/OT/CM/SW - delirium precautions: increase activity - DVT prophylaxis: enoxaparin and encourage ambulation Advance Directive: Full Code Anticipated Discharge - Date - TBD - Location - LTAC select in [place] - Pending the following - pending appeal Total time spent (which include face to face and non face to face encounters) : 38 minutes Extended Emergency Contact Information Primary Emergency Contact: AMEENA MAY Mobile Relation: Daughter Secondary Emergency Contact: Gene Mills Mobile Relation: Son Preferred language: [place] [employer] Dispatcher needed? No Christophe Irwin DO Division of Hospitalist Medicine [facility] Nutrition Assessment Type and Reason for Visit: Reassess Nutrition Recommendations/Plan: Recommend continue Vital 1.5 @ 35 mL/hr. Pt reports tolerable abdominal pain since re-starting TF last night. RD will monitor EN tolerance. Pt reports a UBW of 125# but her weights here have been between 150-170#. Will continue to monitor trend. Monitor weight, labs, I/Os, skin integrity and overall nutrition status. RD to follow up weekly. Malnutrition Assessment: Malnutrition Status: Severe malnutrition (Per RD assessment 09/26) Context: Chronic Illness Findings of the 6 clinical characteristics of malnutrition: Energy Intake: (receives nutrition via EN (per assessment 07/28)) Weight Loss: Greater than 7.5% over 3 months (12.2 % loss of UBW x 4 months (07/26/23)) Body Fat Loss: Severe body fat loss Orbital, Buccal region Muscle Mass Loss: Severe muscle mass loss Temples (temporalis), Hand (interosseous) Fluid Accumulation: Mild Extremities Software Requirements Engineer Strength: Not Performed Nutrition Assessment: 67yo F with PMHx COPD on 4L baseline, TIO with CPAP, HFpEF, prior SDH 01/08/22 following a fall, prior MCA stroke with residual dysphagia, seizures, prior DVT- no OAC, HTN, HPL, Crest, anxiety, depression, alcohol abuse, and recent admit at [facility] after fall 08/05/23 with parafalcine SDH whom presented to [facility] on 09/25 with recurrent seizures and hypercapnia. Loaded with keppra and redosed with dilantin for seizures. She did not respond to use of NIV for hypercapnia (pH 7.1) and was intubated at [facility]. Transferred to ICU at [facility]. Her ICU stay complicated by MSSA PNA. Extubation and reintubation x 2. Fecal impaction resolved by manual disimpaction. Now s/p Trach/PEG 10/04/23. Bronch on 10/06/23 due to increased peak pressures and low TVs, no mucous plugs discovered. Vent adjustments per Pulmonology. On a prednisone taper. Pt tolerated PSV. Working towards LTAC transfer. Pt receiving Vital 1.5 @ 35 mL/hr since PEG placed on 10/03 with no issues until 10/09 when pt reported significant pain around peg site and TF was held. XRay abdomen showed gaseous distention of the large bowel, improved from the prior exam. TF restarted 10/[address] visited pt this afternoon. Pt confirms she had abdominal pain yesterday and the TF was held, however she reports since re-starting the TF, her pain is tolerable. RD observed EN running of Vital 1.5 @ 35 mL/hr. Pt reports a UBW of 125# CHRO. Her weights continue to be above her UBW (had weights of 140# CHRO on 08/17 and 09/22) and her weights here have ranged from 150# to 170#. Estimated Daily Nutrient Needs: Energy Requirements Based On: Kcal/kg Weight Used for Energy Requirements: Ramona Weight for Energy Calculation (kg): 50 kg Total Energy Requirements (kcals/day): 25-30 kcals/kg = 9835-9186 kcals/day Weight Used for Protein Requirements: Ramona Weight in Kg Used for Protein Requirements: 50 kg Estimated Total Protein (g/day): 1.2-1.4g protein/kg = 60-70g protein/day Estimated Daily Total Fluid (ml/day): per MD Nutrition Related Findings: Nacho = 17, GI = bm 10/10, edema = non-pitting BLE, I/O+, Labs reviewed, Meds: Lasix, Prednisone Wound Type: Skin Tears, Moisture Associate Skin Damage (Wound care following for skin tear L forearm and bilateral buttocks MASD) Current Nutrition Therapies: Diet, tube feeding no tray Orogastric; Vital 1.5 Kelvin; Continuous; Yes; 10; Q 4 Hours; 10; 35; Water; Tap water; 30; Q 4 Hours Current Oral Intake Average Meal Intake: NPO Average Supplements Intake: NPO Anthropometric Measures: Height: 157.5 cm (5' 2.01 ) Current Body Weight: 71 kg (156 lb 8.4 oz) (10/09 no source) Weight Source: Bed Scale Admission Body Weight: 68.2 kg (150 lb 5.7 oz) (09/25 bed) Usual Body Weight: 56.7 kg (125 lb) (125# stated. Per chart review: 09/22 140#, 08/17 139#, 07/26 121#, 05/06 133#, 02/05 119#, 10/16/22 119#) % Weight Change (Calculated): 25.2 Ramona Body Weight (lbs) (Calculated): 110 lbs Ramona Body Weight (Kg) (Calculated): 50 kg % Ramona Body Weight (Calculated): 142.3 % BMI (kg/m2) (Calculated): 28.6 BMI Categories: Obese Class 1 (BMI 30.0-34.9) Nutrition Interventions: Nutrition Education/Counseling: No recommendation at this time Coordination of Nutrition Care: Continue to monitor while inpatient Goals: Previous Goal Met: Progressing toward Goal(s) Goals: Tolerate nutrition support at goal rate, prior to discharge Nutrition Monitoring and Evaluation: Behavioral-Environmental Outcomes: None Identified Food/Nutrient Intake Outcomes: Enteral Nutrition Intake/Tolerance Physical Signs/Symptoms Outcomes: Biochemical Data, Nutrition Focused Physical Findings, Skin, Weight, GI Status, Fluid Status or Edema, Hemodynamic Status Discharge Planning: Enteral Nutrition Joanie Lopez RD Contact: [phone] 10/11/23 0849 Patient Parameters Ventilator On Yes Vent ID [id number] $ Invasive Vent Daily Charge - Subsequent Yes Patient position Semi fowlers (30-45 ) SpO2 100 % Surgical Airway Cuffed 6.5 Placement Date/Time: 10/04/23 1200 Surgical Airway Type: Tracheostomy Style: Cuffed Size (mm): 6.5 Status Secured;Ventilator Site Assessment Clean;Dry;No drainage Ties Assessment Intact;Secure Cuff Pressure (cm H2O) 26 cm H2O Airway Interventions Safety Equipment at Bedside Bag Valve Mask Settings Humidification Heater Heater Temperature 37 C (98.6 F) Vent Mode SPONT Spontaneous Type PS FiO2 (%) 35 % PEEP/CPAP (cm H2O) 8 cm H20 Sensitivity 2 PSV 5 cmH2O Readings PIP Observed (cm H2O) 14 cm H2O MAP (cm H2O) 9 Resp Rate Observed 16 Vt (observed, mL) 331 mL Minute Ventilation (L/min) 7 L/min I:E Ratio 1:2 Alarms High RR Alarm 40 breaths per minute Insp Pressure High (cm H2O) 50 cm H2O MV High (L/min) 20 L/min MV Low (L/min) 2 L/min Vt High (marcellus) (mL) 910 mL Vt Low (marcellus) (mL) 75 mL Vt High (spont) (mL) 910 mL Vt Low (spont) (mL) 75 mL Apnea Interval (sec) 20 seconds Nurse Call Plugged In Yes Spontaneous Breathing Trial Weaning Start Time 0849 Weaning Tidal Volume 331 mL Weaning Respiratory Rate 16 Spontaneous Minute Volume (MV) 7 Total RSBI 64 Weaning Tolerance Good Weaning Stop Time 1220 Weaning Duration (min) (3 hours) Spontaneous Breathing Trial (SBT) Outcome SBT Passed PULMONOLOGY CONSULT PROGRESS NOTE 10/11/2023 Hospital LOS: LOS: 15 days Reason for consult: Tracheostomy Interval History/Event Changes: 67-year-old female who was transferred from [facility] for acute on chronic hypoxemic and hypercapnic respiratory failure related to seizures requiring intubation, has been treated for MSSA pneumonia but failed multiple extubation, now s/p trach/PEG/07/28. Reported feeling well this morning. Denied any shortness of breath, cough, secretions, fevers, chills. Stated that she follows with pulmonary In [place], has asthma and COPD, on Symbicort and albuterol as needed, has had frequent exacerbations. Allergies Allergies Allergen Reactions Tetanus Toxoid Swelling Review of Systems A pertinent review of systems was performed and was otherwise non-contributory. Vitals- BP 110/66 (BP Location: Right arm, Patient Position: Lying) Pulse 80 Temp 36.5 C (97.7 F) (Temporal) Resp 16 Ht 5' 2.01 (1.575 m) Wt 156 lb 8.4 oz (71 kg) SpO2 100% PF 48 L/min BMI 28.62 kg/m Tmax: Temp (24hrs), Av.3 C (97.4 F), Min:36.2 C (97.1 F), Max:36.5 C (97.7 F) Hemodynamics: Cuff: Systolic (24hrs), Av , Min:105 , Max:110 /Diastolic (24hrs), Av, Min:49, Max:66 Cuff MAP:MAP (mmHg) Av.1 Min: 32 Max: 118 P: Pulse Av.6 Min: 78 Max: 94 Observed RR: Resp Av.6 Min: 16 Max: 24 Observed O2 sats: SpO2 Av.7 % Min: 87 % Max: 100 % Intake/Output Summary (Last 24 hours) at 10/11/2023 0802 Last data filed at 10/10/2023 2325 Gross per 24 hour Intake 400 ml Output -- Net 400 ml Physical exam- Physical Exam Vitals reviewed. Constitutional: General: She is not in acute distress. Appearance: Normal appearance. HENT: Head: Normocephalic and atraumatic. Mouth/Throat: Mouth: Mucous membranes are moist. Eyes: General: No scleral icterus. Extraocular Movements: Extraocular movements intact. Neck: Comments: Tracheostomy in place to vent Cardiovascular: Rate and Rhythm: Normal rate and regular rhythm. Pulmonary: Effort: Pulmonary effort is normal. No respiratory distress. Breath sounds: Normal breath sounds. No wheezing, rhonchi or rales. Musculoskeletal: General: No swelling or tenderness. Skin: General: Skin is warm and dry. Neurological: General: No focal deficit present. Mental Status: She is alert and oriented to person, place, and time. Psychiatric: Mood and Affect: Mood normal. Routine labs: Recent Labs 10/09/2342310/10/232 10/11/23 0357 WBC 10.7 9.5 11.2* HGB 8.3* 7.3* 7.2* HCT 26.8* 23.1* 23.4* PLT 288 273 270 Recent Labs 10/09/2342310/10/23 0112 10/11/23 0357 NA 145 142 143 K 4.2 3.7 3.5 CL 100 97* 100 CO2 32* 35* 34* BUN 31* 33* 31* CREATININE 0.59 0.55 0.55 MG 2.0 2.0 2.2 No results for input(s): GLU in the last 72 hours. Other Laboratory - Imaging Studies: Reviewed and as per electronic record. CxR/CT images personally reviewed by me when available; salient findings summarized in A/P. ASSESSMENT AND PLAN: Emphysema MSSA PNA, treated S/p trach/PEG Chronic hypercapnic and hypoxemic respiratory failure Tolerated PSV yesterday, continue during the day, will start extending duration. Full vent support at night, settings have been 300 16 35 8 Complete prednisone taper for COPD exacerbation C/w pulmicort and duonebs Routine trach care Renetta Pepe DO Pulmonary and Critical Care Portions of the information within this encounter were entered using an electronic dictation system. Best attempts were made to edit/proofread the information prior to note completion. Despite the review of information, some errors may remain. If there are questions related to the information contained within the note please contact the signing physician directly. 10/11/23 0424 Wean Screen SpO2>/=88% Yes FiO2</=50% Yes PEEP </=8cmH2O Yes HR <140 BPM Yes RR </= 35 breaths/min Yes MAP >/= 65mmHg Yes Arterial pH >7.30 and <7.50 Yes Safety Screen Spontaneous Breathing Trial (SBT) Proceed with SBT - No exclusion criteria met Images from the original note were not included. Hospitalist Progress Note 10/10/2023 Subjective: Admit Date: 09/26/2023 PCP: Joy Stahl Room#: [id number] A BRIEF HOSPITAL COURSE: Mrs May is a 67yoF with hx of COPD on 4L baseline, TIO with CPAP, HFpEF, prior SDH 01/08/22 following a fall, prior MCA stroke with residual dysphagia, seizures, prior DVT- no OAC, HTN, HPL, Crest, anxiety, depression, alcohol abuse, and recent admit at [facility] after fall 08/05/23 with parafalcine SDH whom presented to [facility] on 09/25 with recurrent seizures and hypercapnia. Loaded with keppra and redosed with dilantin for seizures. She did not respond to use of NIV for hypercapnia (pH 7.1) and was intubated at [place]. Transferred to ICU at [facility]. Her ICU stay complicated by MSSA PNA. Extubation and reintubation x 2. Fecal impaction resolved by manual disimpaction. Now s/p Trach/PEG 10/04/23. Bronch on 10/06/23 due to increased peak pressures and low TVs, no mucous plugs discovered. Vent adjustments. Working towards LTAC transfer. Interval History: Seen at bedside. at the bedside. Asking when she will be able to come off the vent replied days to weeks depending on how she progress; often continue progression at LTAC. Discussed with pulm. Pulm did PSV and tolerated. Discussed with nursing. Diet, tube feeding no tray Orogastric; Vital 1.5 Kelvin; Continuous; Yes; 10; Q 4 Hours; 10; 35; Water; Tap water; 30; Q 4 Hours 24HR INTAKE/OUTPUT: No intake or output data in the 24 hours ending 10/10/23 1538 Past Medical History: Past Medical History: Diagnosis Date Asthma CAD (coronary artery disease) Cerebral artery occlusion with cerebral infarction (HCC) COPD (chronic obstructive pulmonary disease) (HCC) Hypertension LABS: CBC: Recent Labs 10/08/23 0202 10/09/234 10/10/23 0112 WBC 9.2 10.7 9.5 RBC 2.59* 2.84* 2.47* HGB 7.6* 8.3* 7.3* HCT 24.4* 26.8* 23.1* MCV 94.2 94.4 93.5 RDW 15.1* 15.4* 15.1* PLT 244 288 273 BMP: Recent Labs 10/08/23 0202 10/09/234 10/10/23 0112 NA 143 145 142 K 3.3* 4.2 3.7 CL 95* 100 97* CO2 35* 32* 35* BUN 27* 31* 33* CREATININE 0.52 0.59 0.55 GLUCOSE 128* 93 103* CALCIUM 9.6 10.4 9.8 ANIONGAP 13 12 10 LIVER PROFILE:No results for input(s): AST , ALT , BILITOT , ALKPHOS , PROT in the last 72 hours. No lab exists for component: LABALBU PT/INR: No results for input(s): PROTIME , INR in the last 72 hours. CARDIAC ENZYMES: No results for input(s): TROPONINI in the last 72 hours. Procalcitonin: No results found for: PROCAL COVID-19 PCR: No results for input(s): COVID19 in the last 72 hours. Objective: Vitals: BP 116/55 Pulse 94 Temp 36.9 C (98.4 F) (Temporal) Resp 22 Ht 5' 2.01 (1.575 m) Wt 156 lb 12 oz (71.1 kg) SpO2 97% PF 48 L/min BMI 28.66 kg/m Pulse Ox: SpO2 Av.4 % Min: 97 % Max: 99 % Supplemental O2: O2 Flow Rate (L/min): 2 L/min Physical Exam HENT: Head: Normocephalic. Nose: Nose normal. Eyes: Extraocular Movements: Extraocular movements intact. Conjunctiva/sclera: Conjunctivae normal. Cardiovascular: Rate and Rhythm: Normal rate and regular rhythm. Pulmonary: Effort: Pulmonary effort is normal. Comments: Trach on vent Abdominal: Palpations: Abdomen is soft. Comments: peg Musculoskeletal: General: Normal range of motion. Cervical back: Normal range of motion. Skin: General: Skin is warm. Neurological: General: No focal deficit present. Mental Status: She is alert. Psychiatric: Mood and Affect: Mood normal. Behavior: Behavior normal. Medications: Scheduled PRN ARIPiprazole, 2 mg, Oral, Daily aspirin, 81 mg, Per G Tube, Daily atorvastatin, 40 mg, Per G Tube, Nightly budesonide, 0.5 mg, Nebulization, Daily cholecalciferol, 1,000 Units, Oral, Daily [Held by provider] DULoxetine, 60 mg, Oral, Daily enoxaparin, 40 mg, SubCUTAneous, Daily escitalopram, 20 mg, Per G Tube, Daily folic acid, 1 mg, Per G Tube, Daily furosemide, 20 mg, Per G Tube, Daily gabapentin, 300 mg, Per G Tube, Nightly ipratropium-albuterol, 3 mL, Nebulization, Q4H lansoprazole, 30 mg, Nasogastric, qAM AC levETIRAcetam, 1,000 mg, Per G Tube, BID metoprolol succinate XL, 25 mg, Oral, Daily polyethylene glycol (PEG) 3350, 17 g, Per G Tube, BID [START ON 10/11/2023] predniSONE, 5 mg, Oral, Daily artificial tears, 1 drop, Both Eyes, Daily QUEtiapine, 50 mg, Per G Tube, Daily rOPINIRole, 1 mg, Oral, Nightly Senna, 10 mL, Per G Tube, BID stomahesive in petrolatum, , Topical, q8h thiamine, 100 mg, Per PEG Tube, Daily PRN medications: acetaminophen, HYDROmorphone, hydrOXYzine pamoate, melatonin, naloxone, ondansetron ODT OR ondansetron, oxyCODONE, Propylene Glycol-Glycerin, sodium chloride, sodium chloride, stomahesive in petrolatum, zolpidem Continuous Assessment Data: (CAT1) Reviewed 3 or more notes from different specialty or health system (each=1). (LOW: 2x CAT1 or independent historian MOD: 3x CAT1 or 1x CAT3 EXTENSIVE: 3x CAT1 and 1x CAT3) Acute, acute on chronic, unstable/uncontrolled chronic problems/diagnoses: Acute on chronic hypoxic hypercarbic resp failure likely 2/2 vocal cord dysfunction vs stenosis s/p trach (#6 shiley on 10/04/23), MSSA PNA, angely pleural effusions, Hx COPD Breakthrough GTC seizure, hx bi-hemispheric MCA strokes, recent traumatic SDH (08/05/23), prev SDH requiring crani/evac (01/2022) HFrEF (45%) Anemia Constipation Debility PEG site pain Stable chronic problems affecting care, new non-acute diagnoses: Hx of Takotsubo CM, HTN HPL Hx Crest syndrome- stable Hx prior DVT (07/2022, not on OAC) Hx anxiety/depression Hx alcohol abuse Plan As a result of the above findings & factors, the following mgmt was pursued: - Pulm following vent setting progressing - LTAC appeal pending -Breakthrough sz 2/2 subtherapeutic dilantin level--Neuro CC has s/o but rec continue keppra 1gm BID. -ECHO as above with EF 45% and unchanged 2+ Mitral insuff. Cards c/s--rec'd it could be takotsubo CM again and could consider low dose GDMT. Cont asa/statin, lasix decreased to home dose of 20mg. -Continue bowel regimen for now -to follow outpt with OP NSGY. -Anxiety severe, but improving. Cymbalta held as it cannot be crushed for PEG,continue lexapro. gabapentin nightly. On seroquel and prn vistaril - hold TF pain at peg site, XUB, prn pain meds - am labs, replace lytes prn - PT/OT/CM/SW - delirium precautions: increase activity - DVT prophylaxis: enoxaparin and encourage ambulation Advance Directive: Full Code Anticipated Discharge - Date - TBD - Location - LTAC select in [place] - Pending the following - pending appeal Total time spent (which include face to face and non face to face encounters) : 38 minutes Extended Emergency Contact Information Primary Emergency Contact: AMEENA MAY Mobile Relation: Daughter Secondary Emergency Contact: Gene Mills Mobile Relation: Son Preferred language: [place] [employer] Dispatcher needed? No Christophe Irwin DO Division of Hospitalist Medicine [facility] Images from the original note were not included. [facility] Pulmonary Medicine [address] [place] [address] Patient - Luiza May, Age - 67 y.o. - 1955 Room Number - [id number] Consulting - Christophe Irwin DO Primary Care Physician - Joy Stahl Date of Admission - 09/26/2023 2:17 PM Hospital Day - 14 Chief Complaint: unable to obtain Luiza May is a 67 y.o. female who pulmonary is following for acute on chronic hypoxemic/hypercarbic respiratory failure, s/p Shiley #6 tracheostomy 10/04/23, previously on 4 LPM baseline O2 Interval History Patient was admitted to [facility] ICU from [facility] on 09/26/23 with acute on chronic hypoxic/hypercarbic respiratory failure related to seizures requiring intubation/mechanical ventilation. She was treated for MSSA pneumonia. She failed multiple extubations, required re-intubated twice. She underwent trach/PEG 10/04/23. Patient was transferred out of ICU 10/07/23. Did not tolerate PSV trial 10/08/23 with PS 5, PEEP 8. She is doing well this morning, tolerating pressure support trial (started around 7:30 AM). She denies any active issues. She is hemodynamically stable and in no acute distress. All other systems reviewed and negative unless otherwise stated in HPI. Objective Vitals: BP 116/55 Pulse 94 Temp 36.9 C (98.4 F) (Temporal) Resp 22 Ht 5' 2.01 (1.575 m) Wt 156 lb 12 oz (71.1 kg) SpO2 97% PF 48 L/min BMI 28.66 kg/m Pulse Ox: SpO2 Av.4 % Min: 97 % Max: 99 % Supplemental O2: O2 Flow Rate (L/min): 2 L/min I/O 24HR INTAKE/OUTPUT: No intake or output data in the 24 hours ending 10/10/23 1429 Exam General appearance: Awake, alert, no acute distress. On trach-vent, pressure support. HEENT: Normocephalic, atraumatic. No scleral icterus, no right/left eye discharge. Conjunctivae normal. Pupils equal round and reactive to light. Right external ear normal, Left external ear normal. No congestion. Mouth: mucous membranes moist. Pharynx, Oropharynx is clear. No oropharyngeal exudate. Neck: ROM normal, No thyromegaly. No cervical lymphadenopathy Cardiovascular: Regular rate and rhythm. Heart sounds normal. Negative for murmur, friction rub, or gallop. Pulmonary: Effort normal, no respiratory distress. No stridor. No wheezing. Shiley #6 trach appears clean. Abdomen: Soft, no distention, no abdominal tenderness. No guarding. No masses. PEG noted. Musculoskeletal: ROM normal. Skin: Warm and dry. Skin is not jaundiced. No rash Extremities: No clubbing or cyanosis. No lower extremity edema. Neurological: No focal deficits. Alert and oriented x person, place and time. Mental status is at baseline. No motor weakness. Psychiatric: Mood, behavior, thought content normal. Cooperative with exam. Medications Current Medications ARIPiprazole, 2 mg, Oral, Daily aspirin, 81 mg, Per G Tube, Daily atorvastatin, 40 mg, Per G Tube, Nightly budesonide, 0.5 mg, Nebulization, Daily cholecalciferol, 1,000 Units, Oral, Daily [Held by provider] DULoxetine, 60 mg, Oral, Daily enoxaparin, 40 mg, SubCUTAneous, Daily escitalopram, 20 mg, Per G Tube, Daily folic acid, 1 mg, Per G Tube, Daily furosemide, 20 mg, Per G Tube, Daily gabapentin, 300 mg, Per G Tube, Nightly ipratropium-albuterol, 3 mL, Nebulization, Q4H lansoprazole, 30 mg, Nasogastric, qAM AC levETIRAcetam, 1,000 mg, Per G Tube, BID metoprolol succinate XL, 25 mg, Oral, Daily polyethylene glycol (PEG) 3350, 17 g, Per G Tube, BID [START ON 10/11/2023] predniSONE, 5 mg, Oral, Daily artificial tears, 1 drop, Both Eyes, Daily QUEtiapine, 50 mg, Per G Tube, Daily rOPINIRole, 1 mg, Oral, Nightly Senna, 10 mL, Per G Tube, BID stomahesive in petrolatum, , Topical, q8h thiamine, 100 mg, Per PEG Tube, Daily PRN Mediations PRN medications: acetaminophen, hydrOXYzine pamoate, melatonin, naloxone, ondansetron ODT OR ondansetron, oxyCODONE, Propylene Glycol-Glycerin, sodium chloride, sodium chloride, stomahesive in petrolatum, zolpidem IV Drips/Infusions Labs CBC Results from last 7 days Lab Units 10/10/23 0112 WBC AUTO 10*3/uL 9.5 HEMOGLOBIN g/dL 7.3* HEMATOCRIT % 23.1* PLATELETS AUTO 10*3/uL 273 BMP: Results from last 7 days Lab Units 10/10/23 0112 10/09/23 0424 10/08/23 0202 SODIUM mmol/L 142 145 143 POTASSIUM mmol/L 3.7 4.2 3.3* CHLORIDE mmol/L 97* 100 95* CO2 mmol/L 35* 32* 35* BUN mg/dL 33* 31* 27* CREATININE mg/dL 0.55 0.59 0.52 GLUCOSE mg/dL 103* 93 128* CALCIUM mg/dL 9.8 10.4 9.6 ABG: Results from last 7 days Lab Units 10/07/23 0558 10/06/23 0343 10/05/23 0343 10/04/23 0343 PH ART -- 7.362 7.459* 7.391 PCO2 ART mm Hg -- 60.6* 45.7* 48.0* PO2 ART mm Hg -- 361.3* 117.0* 164.0* HCO3 ART mmol/L -- 33.6* 31.7* 28.5* O2 SAT ART % -- 99.4 98.0 98.9 BASE EXC ART mmol/L -- 7.2* 7.1* 3.1* SOURCE OF OXYGEN Vent Vent 40% Oxygen 50% Oxygen LIVER PROFILE No lab exists for component: LABALBU INR PTT No results found for: PTT Cultures Pneumonia PCR (09/27/23): MSSA Radiology All relevant/recent imaging was personally reviewed by me. Please see official radiology report for details. CXR (10/07/23) FINDINGS/IMPRESSION: Limitations: Patient positioning/rotation Lines, tubes, and devices: Tracheostomy tube and right IJ central venous catheter unchanged. Cardiomediastinal silhouette: Unchanged in appearance Lungs/Pleura: Background of emphysema. Left greater than right pleural effusions and bibasilar atelectasis and/or pneumonia, fairly similar on the left and slightly improved on the right. Pulmonary vascular congestion/interstitial edema. No pneumothorax. Osseous structures: Unchanged in appearance. Soft tissues: No soft tissue abnormality is detected. Assessment Acute on chronic hypoxemic/hypercarbic respiratory failure MSSA pneumonia, treated Acute COPD exacerbation, resolved Chronic HFrEF, Takotsubo cardiomyopathy Seizures, hx of previous SDH, hx of strokes Hx of CREST Hx of TIO, not needing CPAP anymore Recommendations Reason for failed extubations remains unclear, ?vocal cord dysfunction vs tracheal stenosis, could have also been recurrent mucous plugging, consider ENT evaluation in the future Regardless, she is tracheostomy and ventilator-dependent for the time-being Attempted pressure support trial 10/08/23 but she did not tolerate it, became very tachypneic and anxious, switched back to full support at that time Tolerating PSV well today, continue as tolerated, can switch back to full vent support if any signs of respiratory distress Continue prednisone taper as prescribed Continue scheduled Duonebs, Pulmicort, routine trach care She will likely need LTACH placement Pulmonary will continue to follow Bjorn Ford MD Pulmonary & Critical Care Medicine [facility] Images from the original note were not included. Hospitalist Progress Note 10/09/2023 Subjective: Admit Date: 09/26/2023 PCP: Joy Stahl Room#: [id number] A BRIEF HOSPITAL COURSE: Mrs May is a 67yoF with hx of COPD on 4L baseline, TIO with CPAP, HFpEF, prior SDH 01/08/22 following a fall, prior MCA stroke with residual dysphagia, seizures, prior DVT- no OAC, HTN, HPL, Crest, anxiety, depression, alcohol abuse, and recent admit at [facility] after fall 08/05/23 with parafalcine SDH whom presented to [facility] on 09/25 with recurrent seizures and hypercapnia. Loaded with keppra and redosed with dilantin for seizures. She did not respond to use of NIV for hypercapnia (pH 7.1) and was intubated at [place]. Transferred to ICU at [facility]. Her ICU stay complicated by MSSA PNA. Extubation and reintubation x 2. Fecal impaction resolved by manual disimpaction. Now s/p Trach/PEG 10/04/23. Bronch on 10/06/23 due to increased peak pressures and low TVs, no mucous plugs discovered. Vent adjustments. Working towards LTAC transfer when optimized. Interval History: Seen at bedside. Family is at the bedside. Rev Cecilia[facility] pharmacy meds with them. Luiza is a&o x3 and tries to speak. They were inquiring on when she will be able to get off the vent. Explained pulm does breathing trials she failed hers yesterday. Explained sometimes have to go to LTAC. Had BM recently. Diet, tube feeding no tray Orogastric; Vital 1.5 Kelvin; Continuous; Yes; 10; Q 4 Hours; 10; 35; Water; Tap water; 30; Q 4 Hours 24HR INTAKE/OUTPUT: Intake/Output Summary (Last 24 hours) at 10/09/2023 1302 Last data filed at 10/08/2023 1713 Gross per 24 hour Intake -- Output 675 ml Net -675 ml Past Medical History: Past Medical History: Diagnosis Date Asthma CAD (coronary artery disease) Cerebral artery occlusion with cerebral infarction (HCC) COPD (chronic obstructive pulmonary disease) (HCC) Hypertension LABS: CBC: Recent Labs 10/07/23 0347 10/07/23 0558 10/07/23 1651 10/08/23 0202 10/09/23 0424 WBC 7.1 -- -- 9.2 10.7 RBC 2.43* -- -- 2.59* 2.84* HGB 7.1* < > 8.1* 7.6* 8.3* HCT 22.6* -- 25.2* 24.4* 26.8* MCV 93.0 -- -- 94.2 94.4 RDW 15.1* -- -- 15.1* 15.4* PLT 204 -- -- 244 288 < > = values in this interval not displayed. BMP: Recent Labs 10/07/2334610/08/23 0202 10/09/23 0424 NA 144 143 145 K 3.4* 3.3* 4.2 CL 97* 95* 100 CO2 36* 35* 32* BUN 21* 27* 31* CREATININE 0.53 0.52 0.59 GLUCOSE 112* 128* 93 CALCIUM 9.5 9.6 10.4 ANIONGAP 12 13 12 LIVER PROFILE:No results for input(s): AST , ALT , BILITOT , ALKPHOS , PROT in the last 72 hours. No lab exists for component: LABALBU PT/INR: No results for input(s): PROTIME , INR in the last 72 hours. CARDIAC ENZYMES: No results for input(s): TROPONINI in the last 72 hours. Procalcitonin: No results found for: PROCAL COVID-19 PCR: No results for input(s): COVID19 in the last 72 hours. Objective: Vitals: BP (!) 109/47 (BP Location: Left arm, Patient Position: Sitting) Pulse 101 Temp 36.4 C (97.5 F) (Temporal) Resp 18 Ht 5' 2.01 (1.575 m) Wt 157 lb 3 oz (71.3 kg) SpO2 98% PF 48 L/min BMI 28.74 kg/m Pulse Ox: SpO2 Av.8 % Min: 92 % Max: 99 % Supplemental O2: O2 Flow Rate (L/min): 4 L/min Physical Exam HENT: Head: Normocephalic. Nose: Nose normal. Eyes: Extraocular Movements: Extraocular movements intact. Conjunctiva/sclera: Conjunctivae normal. Cardiovascular: Rate and Rhythm: Normal rate and regular rhythm. Pulmonary: Effort: Pulmonary effort is normal. Breath sounds: Wheezing present. Comments: Trach on vent Abdominal: Palpations: Abdomen is soft. Comments: peg Musculoskeletal: General: Normal range of motion. Cervical back: Normal range of motion. Skin: General: Skin is warm. Neurological: General: No focal deficit present. Mental Status: She is alert. Psychiatric: Mood and Affect: Mood normal. Behavior: Behavior normal. Medications: Scheduled PRN ARIPiprazole, 2 mg, Oral, Daily aspirin, 81 mg, Per G Tube, Daily atorvastatin, 40 mg, Per G Tube, Nightly budesonide, 0.5 mg, Nebulization, Daily cholecalciferol, 1,000 Units, Oral, Daily [Held by provider] DULoxetine, 60 mg, Oral, Daily enoxaparin, 40 mg, SubCUTAneous, Daily escitalopram, 20 mg, Per G Tube, Daily folic acid, 1 mg, Per G Tube, Daily furosemide, 40 mg, Per G Tube, Daily gabapentin, 300 mg, Per G Tube, Nightly ipratropium-albuterol, 3 mL, Nebulization, Q4H lansoprazole, 30 mg, Nasogastric, qAM AC levETIRAcetam, 1,000 mg, Per G Tube, BID polyethylene glycol (PEG) 3350, 17 g, Per G Tube, BID predniSONE, 10 mg, Oral, Daily Followed by [START ON 10/11/2023] predniSONE, 5 mg, Oral, Daily artificial tears, 1 drop, Both Eyes, Daily QUEtiapine, 50 mg, Per G Tube, Daily Senna, 10 mL, Per G Tube, BID stomahesive in petrolatum, , Topical, q8h thiamine, 100 mg, Per PEG Tube, Daily PRN medications: acetaminophen, hydrOXYzine pamoate, melatonin, naloxone, ondansetron ODT OR ondansetron, oxyCODONE, Propylene Glycol-Glycerin, sodium chloride, sodium chloride, stomahesive in petrolatum, zolpidem Continuous Assessment Data: (CAT1) Reviewed 3 or more notes from different specialty or health system (each=1). (LOW: 2x CAT1 or independent historian MOD: 3x CAT1 or 1x CAT3 EXTENSIVE: 3x CAT1 and 1x CAT3) Acute, acute on chronic, unstable/uncontrolled chronic problems/diagnoses: Acute on chronic hypoxic hypercarbic resp failure likely 2/2 vocal cord dysfunction vs stenosis s/p trach (#6 shiley on 10/04/23), MSSA PNA, angely pleural effusions, Hx COPD Breakthrough GTC seizure, hx bi-hemispheric MCA strokes, recent traumatic SDH (08/05/23), prev SDH requiring crani/evac (01/2022) HFrEF (45%) Anemia Constipation Debility Stable chronic problems affecting care, new non-acute diagnoses: Hx of Takotsubo CM, HTN HPL Hx Crest syndrome- stable Hx prior DVT (07/2022, not on OAC) Hx anxiety/depression Hx alcohol abuse Plan As a result of the above findings & factors, the following mgmt was pursued: - resumed home Abilify, vitamin d, ropinirole, Toprol, Educated that she has her ambien ordered as well as the hydroxyzine - Pulm following -LTAC eval. -Breakthrough sz 2/2 subtherapeutic dilantin level--Neuro CC has s/o but rec continue keppra 1gm BID. -ECHO as above with EF 45% and unchanged 2+ Mitral insuff. Cards c/s--rec'd it could be takotsubo CM again and could consider low dose GDMT. Cont asa/statin, lasix decreased to home dose of 20mg. -Continue bowel regimen for now -to follow outpt with OP NSGY. -Anxiety severe, but improving. Cymbalta held as it cannot be crushed for PEG,continue lexapro. gabapentin nightly. On seroquel and prn vistaril -Reportedly sober x3 years. No S&S of w/d. -Tolerating goal TF, replace electrolytes prn, bowel regimen - am labs, replace lytes prn - PT/OT/CM/SW - delirium precautions: increase activity - DVT prophylaxis: enoxaparin and encourage ambulation Advance Directive: Full Code Anticipated Discharge - Date - TBD - Location - LTAC - Pending the following - optimization Total time spent (which include face to face and non face to face encounters) : 40 minutes Extended Emergency Contact Information Primary Emergency Contact: AMEENA MAY Mobile Relation: Daughter Secondary Emergency Contact: Gene Mills Mobile Relation: Son Preferred language: [place] [employer] Dispatcher needed? No Christophe Irwin DO Division of Hospitalist Medicine [facility] Removed patients urethral catheter per protocol. Patient educated on need for PVR bladder scans. Images from the original note were not included. Hospitalist Progress Note 10/08/2023 Subjective: Admit Date: 09/26/2023 PCP: Joy Stahl Room#: W7-560/[id number] A BRIEF HOSPITAL COURSE: Mrs May is a 67yoF with hx of COPD on 4L baseline, TIO with CPAP, HFpEF, prior SDH 01/08/22 following a fall, prior MCA stroke with residual dysphagia, seizures, prior DVT- no OAC, HTN, HPL, Crest, anxiety, depression, alcohol abuse, and recent admit at [facility] after fall 08/05/23 with parafalcine SDH whom presented to [facility] on 09/25 with recurrent seizures and hypercapnia. Loaded with keppra and redosed with dilantin for seizures. She did not respond to use of NIV for hypercapnia (pH 7.1) and was intubated at [facility]. Transferred to ICU at [facility]. Her ICU stay complicated by MSSA PNA. Extubation and reintubation x 2. Fecal impaction resolved by manual disimpaction. Now s/p Trach/PEG 10/04/23. Bronch on 10/06/23 due to increased peak pressures and low TVs, no mucous plugs discovered. Vent adjustments. Working towards LTAC transfer when optimized. Interval History: Seen at bedside. Follows commands. Pulm tried pressure support trial but failed. Case and plan discussed with patient and bedside nurse. All questions answered. Diet, tube feeding no tray Orogastric; Vital 1.5 Kelvin; Continuous; Yes; 10; Q 4 Hours; 10; 35; Water; Tap water; 30; Q 4 Hours 24HR INTAKE/OUTPUT: Intake/Output Summary (Last 24 hours) at 10/08/2023 163 Last data filed at 10/07/20231999 Gross per 24 hour Intake 554.17 ml Output 215 ml Net 339.17 ml Past Medical History: Past Medical History: Diagnosis Date Asthma CAD (coronary artery disease) Cerebral artery occlusion with cerebral infarction (HCC) COPD (chronic obstructive pulmonary disease) (HCC) Hypertension LABS: CBC: Recent Labs 10/06/23 0010 10/06/23 0343 10/07/23 0347 10/07/23 0558 10/07/23 1651 10/08/23 0202 WBC 10.0 -- 7.1 -- -- 9.2 RBC 2.63* -- 2.43* -- -- 2.59* HGB 7.6* < > 7.1* 8.2 8.1* 7.6* HCT 24.1* -- 22.6* -- 25.2* 24.4* MCV 91.6 -- 93.0 -- -- 94.2 RDW 14.7 -- 15.1* -- -- 15.1* PLT 237 -- 204 -- -- 244 < > = values in this interval not displayed. BMP: Recent Labs 10/06/23 0010 10/07/23 0347 10/08/23 0202 NA 145 144 143 K 3.9 3.4* 3.3* CL 102 97* 95* CO2 32* 36* 35* BUN 18* 21* 27* CREATININE 0.61 0.53 0.52 GLUCOSE 137* 112* 128* CALCIUM 9.0 9.5 9.6 ANIONGAP 11 12 13 LIVER PROFILE:No results for input(s): AST , ALT , BILITOT , ALKPHOS , PROT in the last 72 hours. No lab exists for component: LABALBU PT/INR: No results for input(s): PROTIME , INR in the last 72 hours. CARDIAC ENZYMES: No results for input(s): TROPONINI in the last 72 hours. Procalcitonin: No results found for: PROCAL COVID-19 PCR: No results for input(s): COVID19 in the last 72 hours. Objective: Vitals: BP 106/83 (BP Location: Right arm, Patient Position: Lying) Pulse 89 Temp 36.1 C (97 F) (Temporal) Resp 25 Ht 5' 2.01 (1.575 m) Wt 157 lb 3 oz (71.3 kg) SpO2 96% PF 48 L/min BMI 28.74 kg/m Pulse Ox: SpO2 Av.7 % Min: 96 % Max: 100 % Supplemental O2: O2 Flow Rate (L/min): 4 L/min Physical Exam HENT: Head: Normocephalic. Nose: Nose normal. Eyes: Extraocular Movements: Extraocular movements intact. Conjunctiva/sclera: Conjunctivae normal. Cardiovascular: Rate and Rhythm: Normal rate and regular rhythm. Pulmonary: Effort: Pulmonary effort is normal. Breath sounds: Wheezing present. Comments: Trach on vent Abdominal: Palpations: Abdomen is soft. Comments: peg Musculoskeletal: General: Normal range of motion. Cervical back: Normal range of motion. Skin: General: Skin is warm. Neurological: General: No focal deficit present. Mental Status: She is alert. Psychiatric: Mood and Affect: Mood normal. Behavior: Behavior normal. Medications: Scheduled PRN aspirin, 81 mg, Per G Tube, Daily atorvastatin, 40 mg, Per G Tube, Nightly budesonide, 0.5 mg, Nebulization, Daily [Held by provider] DULoxetine, 60 mg, Oral, Daily enoxaparin, 40 mg, SubCUTAneous, Daily escitalopram, 20 mg, Per G Tube, Daily folic acid, 1 mg, Per G Tube, Daily [START ON 10/09/2023] furosemide, 40 mg, Per G Tube, Daily gabapentin, 300 mg, Per G Tube, Nightly ipratropium-albuterol, 3 mL, Nebulization, Q4H lansoprazole, 30 mg, Nasogastric, qAM AC levETIRAcetam, 1,000 mg, Per G Tube, BID polyethylene glycol (PEG) 3350, 17 g, Per G Tube, BID potassium chloride, 40 mEq, Per G Tube, BID [START ON 10/09/2023] predniSONE, 10 mg, Oral, Daily Followed by [START ON 10/11/2023] predniSONE, 5 mg, Oral, Daily artificial tears, 1 drop, Both Eyes, Daily QUEtiapine, 100 mg, Per G Tube, Nightly QUEtiapine, 50 mg, Per G Tube, Daily Senna, 10 mL, Per G Tube, BID stomahesive in petrolatum, , Topical, q8h thiamine, 100 mg, Per PEG Tube, Daily PRN medications: acetaminophen, hydrOXYzine pamoate, melatonin, naloxone, ondansetron ODT OR ondansetron, oxyCODONE, Propylene Glycol-Glycerin, sodium chloride, sodium chloride, stomahesive in petrolatum, zolpidem Continuous Assessment Data: (CAT1) Reviewed 3 or more notes from different specialty or health system (each=1). (LOW: 2x CAT1 or independent historian MOD: 3x CAT1 or 1x CAT3 EXTENSIVE: 3x CAT1 and 1x CAT3) Acute, acute on chronic, unstable/uncontrolled chronic problems/diagnoses: Acute on chronic hypoxic hypercarbic resp failure likely 2/2 vocal cord dysfunction vs stenosis s/p trach (#6 shiley on 10/04/23), MSSA PNA, angely pleural effusions, Hx COPD Breakthrough GTC seizure, hx bi-hemispheric MCA strokes, recent traumatic SDH (08/05/23), prev SDH requiring crani/evac (01/2022) HFrEF (45%) Anemia Constipation Debility Stable chronic problems affecting care, new non-acute diagnoses: Hx of Takotsubo CM, HTN HPL Hx Crest syndrome- stable Hx prior DVT (07/2022, not on OAC) Hx anxiety/depression Hx alcohol abuse Plan As a result of the above findings & factors, the following mgmt was pursued: -consider trach collar trials. Pulm following -LTAC eval. -Breakthrough sz 2/2 subtherapeutic dilantin level--Neuro CC has s/o but rec continue keppra 1gm BID -ECHO as above with EF 45% and unchanged 2+ Mitral insuff. Cards c/s--rec'd it could be takotsubo CM again and could consider low dose GDMT. Cont asa/statin, lasix today. -Continue bowel regimen for now -to follow outpt with [facility]. -Anxiety severe, but improving. Cymbalta held as it cannot be crushed for PEG, increased lexapro. gabapentin nightly. On seroquel BID and prn vistaril -Reportedly sober x3 years. No S&S of w/d. -Tolerating goal TF, replace electrolytes prn, bowel regimen - am labs, replace lytes prn - PT/OT/CM/SW - delirium precautions: increase activity - DVT prophylaxis: enoxaparin and encourage ambulation Advance Directive: Full Code Anticipated Discharge - Date - TBD - Location - LTAC - Pending the following - optimization Total time spent (which include face to face and non face to face encounters) : 40 minutes Extended Emergency Contact Information Primary Emergency Contact: AMEENA MAY Mobile Relation: Daughter Secondary Emergency Contact: Kendra Millsck Mobile Relation: Son Preferred language: [place] [employer] Dispatcher needed? No Christophe Irwin DO Division of Hospitalist Medicine [facility] Images from the original note were not included. OCCUPATIONAL THERAPY [facility] Treatment Note Name/MRN: Luiza May ([id number]) Date of : 1955 Age: 67 y.o. Room[facility]: [facility] Discharge Recommendation: IP REHAB Equipment Needed: (TBD NEXT LEVEL OF CARE) Assessment Currently, Pt required MIN A x 2 for functional transfers and static standing balance. Pt required MIN A for UB ADL and grooming seated EOB. Pt required MOD A for LB ADL without use of AE required. Pt required MIN A x 2 for toilet transfer (BED<> BSC) & MAX A for all aspects of toilet hygiene in standing. Pt is limited by decreased functional endurance, decreased mobility and decreased respiratory endurance hindering indep and safety with functional tasks. Recommending IPR upon discharge in order to achieve highest level of function. Subjective Pt reclined upon entry. Pt pleasant and agreeable to OT TX. RN approved of therapy. Pt reported needing suctioned shortly after physical assist with supine <> sit EOB d/t increased secretions. Pt denies pain however, endorses discomfort with PEG site and coccyx- nsg notified and ET MIX applied to coccyx to promote skin integrity. Pain: RN managing pain. Medical Precautions: No active isolations Proper PPE donned/doffed in accordance with facility standards. Fall Risk: Garcia Fall Risk Score: 70 (High Risk) Precautions/Restrictions: Lines/Drains/Airways: PIV, tach, PEG, soliman, tele Family/Caregiver Present: none Objective ADLs Grooming: Contact Guard, after setup- CGA for static sitting balance and set up for washing face, neck and hands while seated EOB with verbal cues for pursed lip breathing to decrease fatigue. UE Bathing: Min Assist- to wash back- Pt able to wash entire UB and verbal cues for axillary region and physical assist for management of lines/ trach LE Bathing: Mod Assist- to wash from thighs to ankles+ verbal cues for pursed lip breathing with slight anterior bend. UE Dressing: Min Assist- to thread RUE into sleeve- Pt able to doff LUE with increased time. LE Dressing: Mod Assist- to doff/ gary new gripper socks d/t limited functional reach. Toileting: Min Assist, x2 Person Assist- for safety and balance with turning and backing up to BSC with MAX A for all aspects of toilet hygiene d/t decreased posterior reach. Bed Mobility Supine to sit: Min Assist, x2 Person Assist- physical assist of trunk and management of BLE with increased time + tactile cues for sequencing. Sit to supine: Min Assist, x2 Person Assist Rolling to right: Min Assist, x2 Person Assist Rolling to left: Min Assist, x2 Person Assist Scooting: Min Assist, x2 Person Assist- use of glide sheet to scoot hips forward. Transfers/Mobility Sit to stand: Min Assist, x2 Person Assist x 4 from bed level + verbal cues for correct hand placement. Stand to sit: Min Assist, x2 Person Assist Stand step: Min Assist, x2 Person Assist- Pt able to perform side stepping x 4 from HOB towards foot of bed with near LOB on L side with tactile cues for self correction. Sitting balance: Contact Guard Standing balance: Min Assist, x2 Person Assist- static standing balance approx 2 minutes + tactile cues for increasing narrow JAMIE. Dynamic standing balance- marching in place 10 reps with tactile cues for increased L hip flexion and improved wt shifting to increase indep and safety with functional transfers Device(s) used: Support of 2 skilled therapists Exercise Comment: Shoulder abduction 10 reps to promote ROM, strength and endurance for increased indep with self care tasks + verbal cues for pursed lip breathing technique Plan Continue acute OT per plan of care. Safety/Education Safety Safety Devices in place: All fall risk precautions in place, call light within reach, left in bed, bed alarm in place, and nurse notified Restraints: No Education Education Given To: patient Education Provided: OT Role, Home Exercise Program, ADL Adaptive Strategies, Transfer Training, Energy Conservation, Discharge Recommendations, Benefits of Increasing Activity, and Breathing Techniques Education Method: Verbal, Demonstration, and Teach Back Barriers to Learning: medical complications Education Outcome: Verbalized Understanding and Continued Education Needed AM-PAC AM-PAC Inpatient Daily Activity Raw Score: 12 ADL Inpatient CMS G-Code Modifier: CL Goals Patient Stated Goal: REHAB Encounter Problems Encounter Problems (Active) Balance Patient will maintain dynamic standing balance for 2 minutes with SBA in order to demonstrate decreased risk of falling. (Slowly Progressing) Start: 10/01/23 Expected End: 10/29/23 Patient will maintain dynamic sitting balance for 5 minutes with supervision in order to demonstrate improved postural control and prepare for out of bed mobility. (Slowly Progressing) Start: 10/01/23 Expected End: 10/29/23 Dressing Upper Extremities Patient will complete upper body dressing SBA (Slowly Progressing) Start: 10/01/23 Expected End: 10/29/23 Dressings Lower Extremities Patient will dress lower body SBA (Slowly Progressing) Start: 10/01/23 Expected End: 10/29/23 Grooming Patient will complete daily grooming tasks SBA (Slowly Progressing) Start: 10/01/23 Expected End: 10/29/23 Toileting Patient will complete toileting tasks at bedside commode with SBA. (Slowly Progressing) Start: 10/01/23 Expected End: 10/29/23 Transfers BSC transfer min assist (Slowly Progressing) Start: 10/01/23 Expected End: 10/29/23 Therapy Time Individual Co-treatment Time In 0105 Time Out 0137 Minutes 32 Timed Code Treatment Minutes: 32 Minutes (1-ADL; 1- FUNCT ACT) Mildred M Becerra, ARELLANO Images from the original note were not included. PHYSICAL THERAPY [facility] Treatment Note Name/MRN: Luiza May ([id number]) Date of : 1955 Age: 67 y.o. Room[facility]: [facility] A Discharge Recommendation: IP Rehab Equipment Needed: No Prior Level of Function ADL Assistance: Independent Ambulation Assistance: Independent Transfer Assistance: Independent Assessment Pt min assist x 2 for all functional mobility. Increase time. Limited on ambulation as pt is on trach/vent. Rest breaks needed. +LOB with dynamic standing balance. Rec rehab upon discharge. Subjective Pt in bed, agreeable to PT. Pain: RN managing pain. Medical Precautions: No active isolations Proper PPE donned/doffed in accordance with facility standards. Fall Risk: Garcia Fall Risk Score: 70 (High Risk) Precautions/Restrictions: Lines/Drains/Airways: PIV, tach/vent, PEG, soliman Overall Cognitive Status: WNL Overall Orientation Status: Oriented x4 Family/Caregiver Present: none Objective Ambulation Ambulation 1 Assistive device(s) used: WRIST LINER Assist level: Min Assist, x2 Person Assist Distance (ft): 4ft x2 bed><BSC Quality of gait: uneven step length, narrow JAMIE, slow matt, postural sway Ambulation 2 Assistive device(s) used: WRIST LINER Assist level: Min Assist, x2 Person Assist Distance (ft): 6 lateral side steps x 4 reps Quality of gait: uneven step length, narrow JAMIE, slow matt, postural sway Transfers/Mobility Sit to stand: Min Assist, x2 Person Assist Stand to sit: Min Assist, x2 Person Assist X 4 reps; EOB and BSC. Cues for sequencing. Device(s) used: none Bed Mobility Supine to sit: Min Assist, x2 Person Assist Sit to supine: Min Assist, x2 Person Assist Scooting: Min Assist, x2 Person Assist HOB elevated, slide assist sheet used. Balance: seated at EOB, UE support, mild postural sway, min assist initially and able to progress to SBA. Standing with WRIST LINER, narrow JAMIE, postural sway, min assist x2 for balance; dynamic standing with WRIST LINER, mini marches 2 x 10 reps and preparation of gait, min assist x 2 for balance. Plan Continue acute PT per plan of care. Safety/Education Safety Safety Devices in place: call light within reach, left in bed, bed alarm in place, patient at risk for falls, and nurse notified Restraints: No Education Education Given To: patient Education Provided: PT Goals, Gait Training, Plan of Care, Home Exercise Program, Transfer Training, Fall Prevention Education, Discharge Recommendations, and Benefits of Increasing Activity Education Method: Verbal Barriers to Learning: None Education Outcome: Verbalized Understanding Outcome Measures AM-PAC AM-PAC Inpatient Mobility Raw Score (No Stairs) : 12 JH-HLM JH-HLM Score: Walked 10 steps or more (i.e. walked to restroom) Goals Patient Stated Goal: to get stronger Encounter Problems Encounter Problems (Active) Balance Patient will maintain dynamic standing balance for 5 minutes with modified independence in order to demonstrate decreased risk of falling. (Progressing) Start: 10/06/23 Expected End: 11/03/23 Mobility Patient will ambulate 50 feet with modified independence and least restrictive device in order to improve safety and independence with mobility. (Progressing) Start: 10/06/23 Expected End: 11/03/23 Transfers Patient will perform bed mobility with modified independence in order to improve independence and prepare for out of bed mobility. (Progressing) Start: 10/06/23 Expected End: 11/03/23 Patient will complete functional transfer with least restrictive device with modified independence in order to prepare for ambulation. (Progressing) Start: 10/06/23 Expected End: 11/03/23 Therapy Time Individual Co-treatment Time In 1305 Time Out 1337 Minutes 32 Timed Code Treatment Minutes: 32 Minutes (fa; neuro) Gina Burnette PTA Images from the original note were not included. [facility] Progress Note Luiza May AGE: 67 y.o. GENDER: female : 1955 Subjective: HISTORY of PRESENT ILLNESS HPI Luiza May is a 67 y.o. female who presents for a wound care follow up. HPI: Ms. May is a 67yo F with PMHx of COPD with Chronic Hypoxic respiratory failure on 2L of Oxygen and BiPAP at night (poor compliance) s/p tracheostomy (2022), HFpEF with Takotsubo Cardiomyopathy, CVA with chronic dysphagia and aspiration on altered diet with prior PEG tube (2022), hemorrhagic CVA s/p Surgical intervention at [facility] (2021), GERD, h/o VTE, Hypertension, depression, anxiety, h/o Breast Cancer, former EtOH abuse, Seizure disorder on Dilantin was sent to [facility] from [facility] for management of Encephalopathy secondary to Acute on chronic Hypoxic Hypercapnic respiratory failure and what seem to be a break through seizure. Wound Care consulted for left heel, left forearm and lip. Patient resting in bed. Treatment completed. PAST MEDICAL HISTORY Past Medical History: Diagnosis Date Asthma CAD (coronary artery disease) Cerebral artery occlusion with cerebral infarction (HCC) COPD (chronic obstructive pulmonary disease) (HCC) Hypertension PAST SURGICAL HISTORY Past Surgical History: Procedure Laterality Date APPENDECTOMY CHOLECYSTECTOMY COLONOSCOPY COLONOSCOPY CT CHEST ANGIOGRAM W AND/OR WO IV CONTRAST 07/26/2022 CT CHEST ANGIOGRAM W AND/OR WO IV CONTRAST 07/26/[address] [facility] [address] IMAGING FAMILY HISTORY No family history on file. SOCIAL HISTORY Social History Tobacco Use Smoking status: Former Types: Cigarettes Quit date: 07/13/2013 Years since quittin.2 Vaping Use Vaping Use: Never used Substance Use Topics Alcohol use: No Drug use: No ALLERGIES Allergies Allergen Reactions Tetanus Toxoid Swelling MEDICATIONS No current facility-administered medications on file prior to encounter. Current Outpatient Medications on File Prior to Encounter Medication Sig Dispense Refill albuterol 108 (90 Base) MCG/ACT inhaler Inhale 2 puffs as needed. 4 times daily as needed ARIPiprazole (Abilify) 2 MG tablet Take 2 mg by mouth in the morning. atorvastatin (Lipitor) 40 MG tablet Take 1 tablet by mouth Nightly. bisacodyl (Dulcolax) 10 MG suppository Insert 10 mg into the rectum Daily as needed. cholecalciferol (Vitamin D-3) 25 MCG (1000 UT) capsule Take 1,000 Units by mouth in the morning. DULoxetine (Cymbalta) [address] capsule Take 60 mg by mouth in the morning. escitalopram (Lexapro) 20 MG tablet Take 10 mg by mouth daily. furosemide (Lasix) 20 MG tablet Take 40 mg by mouth daily. gabapentin (Neurontin) 300 MG capsule Take 300 mg by mouth Nightly. hydrogen peroxide 3 % external solution Apply topically as needed (Trach care). hydrOXYzine pamoate (Vistaril) 25 MG capsule Take 25 mg by mouth every 8 hours as needed. metoprolol succinate XL (Toprol-XL) 25 MG 24 hr tablet Take 25 mg by mouth daily. Do not crush or chew. pantoprazole (ProtoNix) 40 MG EC tablet Take 40 mg by mouth every morning (before breakfast). Do not crush, chew, or split. phenytoin (Dilantin) 125 MG/5ML suspension Take 100 mg by mouth 2 times daily. polyvinyl alcohol (Liquifilm Tears) 1.4 % ophthalmic solution Administer 1 drop into both eyes if needed for dry eyes. potassium chloride CR (Klor-Con M20) 20 MEQ ER tablet Take 40 mEq by mouth daily. Do not crush or chew. rOPINIRole (Requip) 1 MG tablet Take 1 mg by mouth Nightly. sennosides (Senokot) 8.6 MG tablet Take 8.6 mg by mouth in the morning. zolpidem (Ambien) 10 MG tablet Take 10 mg by mouth Nightly as needed for sleep. [DISCONTINUED] budesonide (Pulmicort) 0.5 MG/2ML nebulizer solution Take 2 mL (0.5 mg) by nebulization in the morning. Rinse mouth with water after use to reduce aftertaste and incidence of candidiasis. Do not swallow.. Do not start before August 05, 2022. 60 mL 11 [DISCONTINUED] folic acid (Folvite) 1 MG tablet Take 1 mg by mouth in the morning. [DISCONTINUED] levalbuterol (Xopenex) 1.25 MG/3ML nebulizer solution Take 3 mL (1.25 mg) by nebulization in the morning and 3 mL (1.25 mg) at noon and 3 mL (1.25 mg) in the evening. 0 [DISCONTINUED] LORazepam (Ativan) 0.5 MG tablet Take 1 tablet (0.5 mg) by mouth every 6 hours as needed for anxiety for up to 10 days. 30 tablet 0 [DISCONTINUED] losartan (Cozaar) 25 MG tablet Take 25 mg by mouth in the morning. [DISCONTINUED] tiotropium (Spiriva) [address] 18 mcg into inhaler and inhale. REVIEW OF SYSTEMS Pertinent items are noted in HPI. Objective: BP 106/83 (BP Location: Right arm, Patient Position: Lying) Pulse 89 Temp 36.1 C (97 F) (Temporal) Resp 25 Ht 5' 2.01 (1.575 m) Wt 157 lb 3 oz (71.3 kg) SpO2 96% PF 48 L/min BMI 28.74 kg/m PHYSICAL EXAM General appearance: in no apparent distress, alert, and cooperative Skin: warm and dry Pulmonary: in no respiratory distress , trached Left forearm: 1.0cmx2.5cmx0.1cm. Celada tissue noted. Scant serosang drainage. Periwound fragile with bruising. Improving Bilateral Buttock: Red blanchable tissue. Excoriation noted. Stable LABS CBC: Lab Results Component Value Date WBC 9.2 10/08/2023 HGB 7.6 (L) 10/08/2023 HGB 8.2 10/07/2023 HCT 24.4 (L) 10/08/2023 MCV 94.2 10/08/2023 PLT 244 10/08/2023 BMP: Lab Results Component Value Date NA 143 10/08/2023 K 3.3 (L) 10/08/2023 CL 95 (L) 10/08/2023 CO2 35 (H) 10/08/2023 PHOS 4.4 10/08/2023 BUN 27 (H) 10/08/2023 CREATININE 0.52 10/08/2023 PT/INR: No results found for: PROTIME , INR Prealbumin: No results found for: PREALBUMIN Albumin:No components found for: LABALBU Sed Rate:No results found for: SEDRATE Micro: No components found for: BC Assessment/Plan: Left forearm: Skin tear - Clean with NS, apply adaptic then cover with foam dressing daily and PRN Bilateral Buttock: MASD (d/t bodily fluids) - Apply ET mix. Leave JANITOR HELPER. Apply TID and PRN. -q2hr/PRN turns No wounds to left heel Reposition q2hrs Incontinent check q2hrs Waffle cushion to chair Nutritional support Wound Care to follow Recommend to follow up at [facility] wound care center after hospital discharge. Any questions or concerns please secure chat [facility] wound/ostomy . Thank you for the consult! I personally obtained the starr and critical portions of the history and physical exam. I reviewed the labs, imaging studies, and electronic medical record. I reviewed the chart documentation and discussed the patient with treatment team members. I have edited the note to reflect my clinical findings and my assessment and plan. Please note, the time of this note does not reflect the time I saw this patient today, but the time of this documentaton. Portions of this note including HPI, ROS, impression/plan, and examination may have been copied forward from admission to today as to provide important historical information essential in contributing to medical decision making. Documentation has been reviewed and edited as necessary to support clinical decision making for today's visit and to reflect my own independent evaluation of this patient. Decision making for today's visit and to reflect my own independent evaluation of this patient. [facility] ADMISSION MEDICATION RECONCILIATION Date: 10/08/23 Room:[facility] Patient Name: Luiza May Allergies: Tetanus toxoid Age: 67 y.o. Sex: female Note: New information has been obtained regarding the patient s medications. The medication reconciliation has been updated to reflect this. Please consider making these changes/additions if appropriate: Recommendations: *CAROLI* - called patient's son Gene to attempt to go over home meds, but he didn't know them. He advised me to call patient's SO, but no phone number in chart and no family at bedside. Thus, updated home med list based on last fill dates from [facility]. UNABLE to verify OTC med fills, so left them as is. Home medications to restart if there is not a current contraindication: Abilify 2mg qday (last filled 10/07 #28, currently ordered Seroquel 50mg qam and 100mg at bedtime as an inpatient) Vitamin D3 1000units qday (NO vit D level in EMR) Toprol 25mg qday (last filled 10/07 #28) Protonix 40mg qday (last filled 10/07 #28) Requip 1mg at bedtime (last filled 10/07 #28) *FYI* - patient filling Lexapro 20mg 0.5 tab qday (last filled 09/30 #30/60 day supply) prior to admission & currently 20mg qday as an inpatient Phenytoin 100mg/4mL BID (last filled 09/26 #237 mL; 09/26 Total Phenytoin Level WNL at 11.8) Medications originally on the home list that patient has NOT recently filled. If patient to take @ DC, please write Rx's: Budesonide 0.5mg/2mL qam (UNABLE to verify ANY fills, currently ordered as an inpt) Folic Acid 1mg qday (UNABLE to verify ANY fills, currently ordered as an inpt) Xopenex 1.25mg/3mL TID (UNABLE to verify ANY fills) Ativan 0.5mg q6h prn (UNABLE to verify ANY fills) Losartan 25mg qday (UNABLE to verify ANY fills) Spiriva 18mcg qday (UNABLE to verify ANY fills) Pursue the following to decrease adherence barriers: *FYI* - patient filing Ambien 10mg at bedtime PRN (currently ordered as an inpt) prior to admission (last filled 08/13 #28) - MAX recommended dose = 5mg in females - consider decreasing dose? Please page/call with questions. Date: 10/08/23 Time: 12:05 PM 10/08/2023 12:18 PM Natalie Gutierrez PharmD Attempted PS trial at 11/09 and patient did not tolerate her RR increased to 45 and she became a little anxious Images from the original note were not included. OCCUPATIONAL THERAPY [facility] Name/MRN: Luiza Higgins Yovannyjavad ([id number]) Date: 10/08/2023 Pt reviewed, goals and POC remain appropriate, no re-eval required. Lu Magallanes OT Images from the original note were not included. [facility] Pulmonary Medicine [address] [place] [address] Patient - Luiza May, Age - 67 y.o. - 1955 Room Number - [id number] A Consulting - Christophe Irwin DO Primary Care Physician - Joy Stahl Date of Admission - 09/26/2023 2:17 PM Hospital Day - 12 Chief Complaint: unable to obtain Luiza May is a 67 y.o. female who pulmonary is following for acute on chronic hypoxemic/hypercarbic respiratory failure, s/p Shiley #6 tracheostomy 10/04/23, previously on 4 LPM baseline O2 Interval History Patient was admitted to [facility] ICU from [facility] on 09/26/23 with acute on chronic hypoxic/hypercarbic respiratory failure related to seizures requiring intubation/mechanical ventilation. She was treated for MSSA pneumonia. She failed multiple extubations, required re-intubated twice. She underwent trach/PEG 10/04/23. Patient was transferred out of ICU 10/07/23. She is doing well this morning, tolerating full ventilator support, peak pressures ~28, suctioned some mucous from trach this morning. She denies any active issues. She is hemodynamically stable and in no acute distress. All other systems reviewed and negative unless otherwise stated in HPI. Objective Vitals: BP 106/83 (BP Location: Right arm, Patient Position: Lying) Pulse 89 Temp 36.1 C (97 F) (Temporal) Resp 25 Ht 5' 2.01 (1.575 m) Wt 157 lb 3 oz (71.3 kg) SpO2 96% PF 48 L/min BMI 28.74 kg/m Pulse Ox: SpO2 Av.5 % Min: 96 % Max: 100 % Supplemental O2: O2 Flow Rate (L/min): 4 L/min I/O 24HR INTAKE/OUTPUT: Intake/Output Summary (Last 24 hours) at 10/08/2023 1419 Last data filed at 10/07/20231999 Gross per 24 hour Intake 554.17 ml Output 765 ml Net -210.83 ml Exam General appearance: Awake, alert, no acute distress. On trach-vent, VC+. HEENT: Normocephalic, atraumatic. No scleral icterus, no right/left eye discharge. Conjunctivae normal. Pupils equal round and reactive to light. Right external ear normal, Left external ear normal. No congestion. Mouth: mucous membranes moist. Pharynx, Oropharynx is clear. No oropharyngeal exudate. Neck: ROM normal, No thyromegaly. No cervical lymphadenopathy Cardiovascular: Regular rate and rhythm. Heart sounds normal. Negative for murmur, friction rub, or gallop. Pulmonary: Effort normal, no respiratory distress. No stridor. No wheezing. Shiley #6 trach appears clean. Abdomen: Soft, no distention, no abdominal tenderness. No guarding. No masses. PEG noted. Musculoskeletal: ROM normal. Skin: Warm and dry. Skin is not jaundiced. No rash Extremities: No clubbing or cyanosis. No lower extremity edema. Neurological: No focal deficits. Alert and oriented x person, place and time. Mental status is at baseline. No motor weakness. Psychiatric: Mood, behavior, thought content normal. Cooperative with exam. Medications Current Medications aspirin, 81 mg, Per G Tube, Daily atorvastatin, 40 mg, Per G Tube, Nightly budesonide, 0.5 mg, Nebulization, Daily [Held by provider] DULoxetine, 60 mg, Oral, Daily enoxaparin, 40 mg, SubCUTAneous, Daily escitalopram, 20 mg, Per G Tube, Daily folic acid, 1 mg, Per G Tube, Daily [START ON 10/09/2023] furosemide, 40 mg, Per G Tube, Daily gabapentin, 300 mg, Per G Tube, Nightly ipratropium-albuterol, 3 mL, Nebulization, Q4H lansoprazole, 30 mg, Nasogastric, qAM AC levETIRAcetam, 1,000 mg, Per G Tube, BID polyethylene glycol (PEG) 3350, 17 g, Per G Tube, BID potassium chloride, 40 mEq, Per G Tube, BID [START ON 10/09/2023] predniSONE, 10 mg, Oral, Daily Followed by [START ON 10/11/2023] predniSONE, 5 mg, Oral, Daily artificial tears, 1 drop, Both Eyes, Daily QUEtiapine, 100 mg, Per G Tube, Nightly QUEtiapine, 50 mg, Per G Tube, Daily Senna, 10 mL, Per G Tube, BID stomahesive in petrolatum, , Topical, q8h thiamine, 100 mg, Per PEG Tube, Daily PRN Mediations PRN medications: acetaminophen, hydrOXYzine pamoate, melatonin, naloxone, ondansetron ODT OR ondansetron, oxyCODONE, Propylene Glycol-Glycerin, sodium chloride, sodium chloride, stomahesive in petrolatum, zolpidem IV Drips/Infusions Labs CBC Results from last 7 days Lab Units 10/08/23 0202 WBC AUTO 10*3/uL 9.2 HEMOGLOBIN g/dL 7.6* HEMATOCRIT % 24.4* PLATELETS AUTO 10*3/uL 244 BMP: Results from last 7 days Lab Units 10/08/23 0202 10/07/23 0347 10/06/23 0010 SODIUM mmol/L 143 144 145 POTASSIUM mmol/L 3.3* 3.4* 3.9 CHLORIDE mmol/L 95* 97* 102 CO2 mmol/L 35* 36* 32* BUN mg/dL 27* 21* 18* CREATININE mg/dL 0.52 0.53 0.61 GLUCOSE mg/dL 128* 112* 137* CALCIUM mg/dL 9.6 9.5 9.0 ABG: Results from last 7 days Lab Units 10/07/23 0558 10/06/23 0343 10/05/23 0343 10/04/23 0343 PH ART -- 7.362 7.459* 7.391 PCO2 ART mm Hg -- 60.6* 45.7* 48.0* PO2 ART mm Hg -- 361.3* 117.0* 164.0* HCO3 ART mmol/L -- 33.6* 31.7* 28.5* O2 SAT ART % -- 99.4 98.0 98.9 BASE EXC ART mmol/L -- 7.2* 7.1* 3.1* SOURCE OF OXYGEN Vent Vent 40% Oxygen 50% Oxygen LIVER PROFILE No lab exists for component: LABALBU INR PTT No results found for: PTT Cultures Pneumonia PCR (09/27/23): MSSA Radiology All relevant/recent imaging was personally reviewed by me. Please see official radiology report for details. CXR (10/07/23) FINDINGS/IMPRESSION: Limitations: Patient positioning/rotation Lines, tubes, and devices: Tracheostomy tube and right IJ central venous catheter unchanged. Cardiomediastinal silhouette: Unchanged in appearance Lungs/Pleura: Background of emphysema. Left greater than right pleural effusions and bibasilar atelectasis and/or pneumonia, fairly similar on the left and slightly improved on the right. Pulmonary vascular congestion/interstitial edema. No pneumothorax. Osseous structures: Unchanged in appearance. Soft tissues: No soft tissue abnormality is detected. Assessment Acute on chronic hypoxemic/hypercarbic respiratory failure MSSA pneumonia, treated Acute COPD exacerbation, resolved Chronic HFrEF, Takotsubo cardiomyopathy Seizures, hx of previous SDH, hx of strokes Hx of CREST Hx of TIO, not needing CPAP anymore Recommendations Reason for failed extubations remains unclear, ?vocal cord dysfunction vs tracheal stenosis, could have also been recurrent mucous plugging, consider ENT evaluation in the future Regardless, she is tracheostomy and ventilator-dependent for the time-being Attempted pressure support trial today but she did not tolerate it, became very tachypneic and anxious, switched back to full support Continue prednisone taper as prescribed Continue scheduled Duonebs, Pulmicort, routine trach care She will likely need LTACH placement Pulmonary will continue to follow Bjorn Ford MD Pulmonary & Critical Care Medicine [facility] ICU interval note; Peer to Peer completed regarding LTAC approval. Thus far she had one day post trach in which she failed SBT, today she passed. We discussed her history, including prior tracheostomy and decanulation. Discussed there may be other factors such as tracheal stenosis contributing. Per Physician liason, insurance prefers to see 3 failed attempts at SBTs. In summary, likely too early for LTAC approval- continue current hospitalization to determine final dispo. Images from the original note were not included. PHYSICAL THERAPY [facility] Name/MRN: Luiza May ([id number]) Date: 10/07/2023 PT treatment attempted x2. Pt declined in the am because family members were visiting. Declined in the afternoon because of being kept up most of the night and wanting a nap. Educated on importance of PT and pt stated she would work with therapy tomorrow. Will re-attempt as able. Kailee Wagner, PT OCCUPATIONAL THERAPY Attempted OT services however due to recent trach/PEG placement referred POC to OTR for possible re evaluation. Will continue to monitor for continued OT treatment. Images from the original note were not included. [facility] Progress Note Luiza May AGE: 67 y.o. GENDER: female : 1955 Subjective: HISTORY of PRESENT ILLNESS HPI Luiza May is a 67 y.o. female who presents for a wound care follow up. HPI: Ms. May is a 67yo F with PMHx of COPD with Chronic Hypoxic respiratory failure on 2L of Oxygen and BiPAP at night (poor compliance) s/p tracheostomy (2022), HFpEF with Takotsubo Cardiomyopathy, CVA with chronic dysphagia and aspiration on altered diet with prior PEG tube (2022), hemorrhagic CVA s/p Surgical intervention at [facility] (2021), GERD, h/o VTE, Hypertension, depression, anxiety, h/o Breast Cancer, former EtOH abuse, Seizure disorder on Dilantin was sent to [facility] from [facility] for management of Encephalopathy secondary to Acute on chronic Hypoxic Hypercapnic respiratory failure and what seem to be a break through seizure. Wound Care consulted for left heel, left forearm and lip. Patient sitting in recliner chair. Treatment completed. PAST MEDICAL HISTORY Past Medical History: Diagnosis Date Asthma CAD (coronary artery disease) Cerebral artery occlusion with cerebral infarction (CMS/HCC) (HCC) COPD (chronic obstructive pulmonary disease) (HCC) Hypertension PAST SURGICAL HISTORY Past Surgical History: Procedure Laterality Date APPENDECTOMY CHOLECYSTECTOMY COLONOSCOPY COLONOSCOPY CT CHEST ANGIOGRAM W AND/OR WO IV CONTRAST 07/26/2022 CT CHEST ANGIOGRAM W AND/OR WO IV CONTRAST 07/26/[address] [facility] [address] IMAGING FAMILY HISTORY No family history on file. SOCIAL HISTORY Social History Tobacco Use Smoking status: Former Types: Cigarettes Quit date: 07/13/2013 Years since quittin.2 Vaping Use Vaping Use: Never used Substance Use Topics Alcohol use: No Drug use: No ALLERGIES Allergies Allergen Reactions Tetanus Toxoid Swelling MEDICATIONS No current facility-administered medications on file prior to encounter. Current Outpatient Medications on File Prior to Encounter Medication Sig Dispense Refill albuterol 108 (90 Base) MCG/ACT inhaler Inhale 2 puffs as needed. 4 times daily as needed ARIPiprazole (Abilify) 2 MG tablet Take 2 mg by mouth in the morning. atorvastatin (Lipitor) 40 MG tablet Take 1 tablet by mouth Nightly. bisacodyl (Dulcolax) 10 MG suppository Insert 10 mg into the rectum Daily as needed. budesonide (Pulmicort) 0.5 MG/2ML nebulizer solution Take 2 mL (0.5 mg) by nebulization in the morning. Rinse mouth with water after use to reduce aftertaste and incidence of candidiasis. Do not swallow.. Do not start before August 05, 2022. 60 mL 11 cholecalciferol (Vitamin D-3) 25 MCG (1000 UT) capsule Take 1,000 Units by mouth in the morning. DULoxetine (Cymbalta) [address] capsule Take 60 mg by mouth in the morning. folic acid (Folvite) 1 MG tablet Take 1 mg by mouth in the morning. hydrogen peroxide 3 % external solution Apply topically as needed (Trach care). levalbuterol (Xopenex) 1.25 MG/3ML nebulizer solution Take 3 mL (1.25 mg) by nebulization in the morning and 3 mL (1.25 mg) at noon and 3 mL (1.25 mg) in the evening. 0 LORazepam (Ativan) 0.5 MG tablet Take 1 tablet (0.5 mg) by mouth every 6 hours as needed for anxiety for up to 10 days. 30 tablet 0 losartan (Cozaar) 25 MG tablet Take 25 mg by mouth in the morning. polyvinyl alcohol (Liquifilm Tears) 1.4 % ophthalmic solution Administer 1 drop into both eyes if needed for dry eyes. sennosides (Senokot) 8.6 MG tablet Take 8.6 mg by mouth in the morning. tiotropium (Spiriva) [address] 18 mcg into inhaler and inhale. REVIEW OF SYSTEMS Pertinent items are noted in HPI. Objective: BP 111/63 Pulse 96 Temp 37.5 C (99.5 F) Resp 20 Ht 1.575 m (5' 2.01 ) Wt 71.3 kg (157 lb 3 oz) SpO2 91% PF 48 L/min BMI 28.74 kg/m PHYSICAL EXAM General appearance: in no apparent distress, alert, and cooperative Skin: warm and dry Pulmonary: in no respiratory distress , Left forearm: 1.0cmx2.5cmx0.1cm. Celada tissue noted. Scant serosang drainage. Periwound fragile with bruising. Stable Bilateral Buttock: Red blanchable tissue. Excoriation noted. LABS CBC: Lab Results Component Value Date WBC 7.1 10/07/2023 HGB 8.2 10/07/2023 HGB 7.1 (L) 10/07/2023 HCT 22.6 (L) 10/07/2023 MCV 93.0 10/07/2023 PLT 204 10/07/2023 BMP: Lab Results Component Value Date NA 144 10/07/2023 K 3.4 (L) 10/07/2023 CL 97 (L) 10/07/2023 CO2 36 (H) 10/07/2023 PHOS 3.4 10/07/2023 BUN 21 (H) 10/07/2023 CREATININE 0.53 10/07/2023 PT/INR: No results found for: PROTIME , INR Prealbumin: No results found for: PREALBUMIN Albumin:No components found for: LABALBU Sed Rate:No results found for: SEDRATE Micro: No components found for: BC Assessment/Plan: Left forearm: Skin tear - Clean with NS, apply adaptic then cover with foam dressing daily and PRN Bilateral Buttock: MASD (d/t bodily fluids) - Apply ET mix. Leave CHECO. Apply TID and PRN. No wounds to left heel Reposition q2hrs Incontinent check q2hrs Waffle cushion to chair Nutritional support Wound Care to follow Recommend to follow up at [facility] wound care center after hospital discharge. Any questions or concerns please secure chat [facility] wound/ostomy . Thank you for the consult! I personally obtained the starr and critical portions of the history and physical exam. I reviewed the labs, imaging studies, and electronic medical record. I reviewed the chart documentation and discussed the patient with treatment team members. I have edited the note to reflect my clinical findings and my assessment and plan. Please note, the time of this note does not reflect the time I saw this patient today, but the time of this documentaton. Portions of this note including HPI, ROS, impression/plan, and examination may have been copied forward from admission to today as to provide important historical information essential in contributing to medical decision making. Documentation has been reviewed and edited as necessary to support clinical decision making for today's visit and to reflect my own independent evaluation of this patient. Decision making for today's visit and to reflect my own independent evaluation of this patient. 10/07/23 0955 Patient Parameters Ventilator On Yes Vent ID [id number] $ Invasive Vent Daily Charge - Subsequent Yes Patient position Semi fowlers (30-45 ) Heart Rate 113 Resp 21 SpO2 93 % Breath sounds (right) CTA;Diminished Breath sounds (left) CTA;Diminished Airway Interventions Safety Equipment at Bedside Oxygen tank wrench;Suction;Bag Valve Mask Settings Humidification Heater Heater Temperature 37.4 C (99.3 F) Vent Mode A/C Mandatory Type VC+ Resp Rate (Set) 20 Vt (Set, mL) 300 mL FiO2 (%) 30 % PEEP/CPAP (cm H2O) 8 cm H20 Sensitivity 2 Inspiratory Time (sec) 0.95 sec Rise Time (%) 80 % Readings PIP Observed (cm H2O) 25 cm H2O MAP (cm H2O) 14 Resp Rate Observed 24 Vt (observed, mL) 367 mL Minute Ventilation (L/min) 7.04 L/min I:E Ratio 1:2.4 Plateau Pressure (cm H2O) 25 cm H2O Dynamic Compliance (L/cm H2O) 35 L/cm H2O Static Compliance (L/cm H2O) 19 Airway Resistance 17 Total PEEP (cm H2O) 0 cm H2O Alarms High RR Alarm 45 breaths per minute Insp Pressure High (cm H2O) 50 cm H2O MV High (L/min) 20 L/min MV Low (L/min) 1.5 L/min Vt High (marcellus) (mL) 910 mL Vt Low (marcellus) (mL) 75 mL Vt High (spont) (mL) 910 mL Vt Low (spont) (mL) 150 mL High VTi 1050 Apnea Interval (sec) 30 seconds Nurse Call Plugged In Yes Spontaneous Breathing Trial Weaning Start Time 0743 Weaning Tidal Volume 300 mL Weaning Respiratory Rate 25 Spontaneous Minute Volume (MV) 7.5 Weaning Tolerance Excellent Weaning Stop Time 0955 Weaning Duration (min) 132 Spontaneous Breathing Trial (SBT) Outcome SBT Passed SBT WITH PSV PASSED ICU Progress Note Name: Luiza May : 1955(67 y.o.) Date: 10/07/23 Team: MICU Attending: Dr. Suellen Villafuerte Subjective: Hospital Summary: Mrs May is a 67yoF with hx of COPD on 4L baseline, TIO with CPAP, HFpEF, prior SDH 01/08/22 following a fall, prior MCA stroke with residual dysphagia, seizures, prior DVT- no OAC, HTN, HPL, Crest, anxiety, depression, alcohol abuse, and recent admit at [facility] after fall 08/05/23 with parafalcine SDH whom presented to [facility] on 09/25 with recurrent seizures and hypercapnia. Loaded with keppra and redosed with dilantin for seizures. She did not respond to use of NIV for hypercapnia (pH 7.1) and was intubated at [facility]. Transferred to ICU at [facility]. Her ICU stay complicated by MSSA PNA. Extubation and reintubation x 2. Fecal impaction resolved by manual disimpaction. Now s/p Trach/PEG 4/1/24. Bronch on 10/06/23 due to increased peak pressures and low TVs, no mucous plugs discovered. Vent adjustments. Working towards LTAC transfer when optimized. Interval Events: No new acute events overnight. On exam, awake and alert. Denies complaints. States breathing feels good. Discussed potential trach collar trials and LTAC eval. Scheduled Meds:albumin human, 50 g, IntraVENous, Once aspirin, 81 mg, Oral, Daily atorvastatin, 40 mg, Oral, Nightly budesonide, 0.5 mg, Nebulization, Daily [Held by provider] DULoxetine, 60 mg, Oral, Daily enoxaparin, 40 mg, SubCUTAneous, Daily [START ON 10/08/2023] escitalopram, 20 mg, Oral, Daily folic acid, 1 mg, Oral, Daily furosemide, 40 mg, IntraVENous, Daily gabapentin, 300 mg, Oral, Nightly ipratropium-albuterol, 3 mL, Nebulization, Q4H levETIRAcetam, 1,000 mg, Oral, BID pantoprazole (ProtoNix) 40 mg in sodium chloride (PF) 0.9 % 10 mL injection, 40 mg, IntraVENous, Nightly polyethylene glycol (PEG) 3350, 17 g, Oral, BID predniSONE, 20 mg, Oral, Daily Followed by [START ON 10/09/2023] predniSONE, 10 mg, Oral, Daily Followed by [START ON 10/11/2023] predniSONE, 5 mg, Oral, Daily artificial tears, 1 drop, Both Eyes, Daily QUEtiapine, 100 mg, Oral, Nightly QUEtiapine, 50 mg, Oral, Daily Senna, 10 mL, Oral, BID stomahesive in petrolatum, , Topical, q8h thiamine (Vitamin B1) 100 mg in sodium chloride 0.9 % 100 mL IVPB, 100 mg, IntraVENous, q24h Continuous Infusions: Objective: Last Vitals: BP MAP 111/63 (10/07/23 0900) 78 (10/07/23 0900) Arterial BP MAP Temp 37.3 C (99.1 F) (10/07/23 1227) Pulse 99 (10/07/23 1227) Resp 21 (10/07/23 1227) SpO2 94 % (10/07/23 1227) Weight 71.3 kg (157 lb 3 oz) (10/07/23 0554) BMI Body mass index is 28.74 kg/m . I/O: 10/05 699 - 10/06 0559 In: 1876 [I.V.:269] Out: 3340 [Urine:3340] Ventilator: Resp Rate (Set): 20 Vt (Set, mL): 300 mL IP Set (cm H2O): 27 cm H2O FiO2 (%): 35 % PEEP/CPAP (cm H2O): 8 cm H20 Inspiratory Time (sec): 0.95 sec Oxygen Delivery: O2 Flow Rate (L/min): 4 L/min Invasive Lines / Tubes / Drains: CVC Triple Lumen 09/26/23 Non-tunneled Right Internal jugular (Active) Number of days: 11 Gastrostomy/Enterostomy PEG - Percutaneous endoscopic gastrostomy (PEG) LUQ (Active) Number of days: 2 Urethral Catheter Temperature probe 18 Fr. (Active) Number of days: 11 Surgical Airway Cuffed 6.5 (Active) Number of days: 2 Central Line Indication: Inadequate peripheral access despite documented ultrasound attempts AND unable to place extended dwell PIV Soliman Indications: Hourly I&Os (Critical Care ONLY) Restraints: Restraints Non-Violent Or Non-Self Destructive Oct 03, 2023 10:37 Am Edt NA - patient is not restrained. Wounds: Wound/Incision 09/26/23 Traumatic Lip Left;Upper (Active) Date First Assessed: 09/26/23 Present on Original Admission: Yes Primary Wound Type: Traumatic Location: Lip Wound Location Orientation: Left;Upper Wound/Incision 10/03/23 Other (comment) Perineum (Active) Date First Assessed: 10/03/23 Primary Wound Type: Other (comment) Location: Perineum Wound Description (Comments): Incontinence-related dermatitis Non-staged Wound Description: Not applicable Constitutional: General Appearance [x]WDWN []Obese []Cachectic []Thin []Ill Eyes: Inspection of Pupils/Irises Pupils round and react: [x]Yes []No Sclera: []Icteric [x]Non-Icteric Inspection of Conjunctiva/Lids Conjunctiva: []Injected [x]Non-Injected Lids: [x]Intact []Lesion Present ENT/Mouth: External Inspection of ears/nose [x] Normal [] Scar/Lesion/Mass Inspection of teeth/lips/gums Dentition: [x][place] Teeth []Dentures Lips/Gums: [x]Intact []Lesion Present Mucosa: [x]Celada [x]Moist []Dry Neck: External Appearance Overall Appearance: [x]Normal []Lesion/Mass/Crepitus Present Trachea midline: [x]Yes []No Thyroid []Normal []Enlarged []Tender []Mass []Absent Respiratory: Respiratory effort []Labored [x]Non-Labored [x] Mechanically-Ventilated Auscultation []Clear []Crackles []Wheezes []Rhonchi Cardiovascular: Auscultation Rate: [x]Regular []Irregular []Tachycardia []Bradycardia Rhythm: [x]Regular []Irregular Murmur: []Present [x]Absent Extremities Peripheral Edema: []Present [x]Absent Varicosities: []Present [x]Absent Gastrointestinal: Abdomen Palpation: [x]Soft []Firm []Tender [x]Non-Tender []Distended [x]Non-distended Mass: []Present []Absent Bowel Sounds: [x]Present []Absent Hernia: []Present []Absent Liver/Spleen: []Hepatosplenomegaly []Organomegaly Absent Musculoskeletal: Inspection of Digits and Nails Cyanosis: []Present [x]Absent Clubbing: []Present [x]Absent Ischemia: []Present [x]Absent Infection: []Present [x]Absent Extremities REGALADO Equally: Except ([]RUE []RLE []LUE []LLE) Strength/Tone: Intact and Normal ([x]RUE [x]RLE [x]LUE [x]LLE) Skin: Inspection []Normal []Rash []Lesion [x]Ulcer Palpation [x]Warm []Cool [x]Dry []Clammy []Nodules []Induration []Skin-tightening Cap-Refill: [] <3 sec [] >3 seconds (delayed) Neurologic: GCS EYE: 4 - Opens spontaneously GCS MOTOR: 6 - Obeys commands for movement GCS VERBAL: 5 - Oriented to person, place, time Total GCS: 15 [x] Sensation grossly intact Psych: Mental Status Alert: [x]Yes [] No Oriented: []x0 []X1 []X2 [x]x3 Mood/Affect []Normal []Flat []Agitated []Depressed []Anxious [x]Calm []Sedated []NAD [facility] within last 24 hours- BMP: Recent Labs 10/05/23 0610/06/23 0010 10/07/23 0347 NA 142 145 144 K 3.2* 3.9 3.4* CL 102 102 97* CO2 33* 32* 36* BUN 15 18* 21* CREATININE 0.59 0.61 0.53 CALCIUM 8.9 9.0 9.5 MG 1.6 1.6 1.6 PHOS 2.7 4.0 3.4 LFTs:No results for input(s): AST , ALT , PROT , ALBUMIN , BILITOT , BILIRUBINU , ALKPHOS , LIPASE in the last 72 hours. Glucose: Recent Labs 10/05/2361610/06/23910/07/23 034 GLUCOSE 115* 137* 112* Procal: No results for input(s): PROCAL in the last 72 hours. CBC: Recent Labs 10/05/23 0610/05/23 1102 10/06/23 0010 10/06/23 03410/07/23 03410/07/23 0558 WBC 5.3 -- 10.0 -- 7.1 -- HGB 6.0* 7.2* 7.6* 8.0 7.1* 8.2 HCT 19.3* 22.6* 24.1* -- 22.6* -- PLT 183 -- 237 -- 204 -- MCV 91.9 -- 91.6 -- 93.0 -- RDW 14.3 -- 14.7 -- 15.1* -- ABGs: Recent Labs 10/05/2334210/06/23 03410/07/23 0558 PHART 7.459* 7.362 -- PPO9KAQ 45.7* 60.6* -- PO2ART 117.0* 361.3* -- [id number] 31.7* 33.6* -- [id number] 40% Oxygen Vent Vent Lactic Acid: Recent Labs 10/05/2317 LACTATE 0.6* INR: No results for input(s): INR in the last 72 hours. Cardiac Injury Profile: No results for input(s): CKTOTAL , CKMB , TROPONINI in the last 72 hours. Labs in Last 3 months: Lab Results Component Value Date TSH 1.049 10/03/2023 Microbiology- Urine Cx: Lab Results Component Value Date URINECX 07/29/2022 Insignificant growth based on current clinical guidelines Blood Cx: Lab Results Component Value Date BLOODCX No growth at 5 days 09/27/2023 Sputum Cx: Lab Results Component Value Date RESPCULT Rare respiratory ailyn present. 10/03/2023 Gram Stain: Lab Results Component Value Date LABGRAM 10/03/2023 Few Polymorphonuclear leukocytes per low power field LABGRAM Rare Epithelial cells per low power field 10/03/2023 LABGRAM No organisms seen 10/03/2023 PNA PCR: Lab Results Component Value Date HUMANMETAPNE Not Detected 10/03/2023 COVID19: No results found for: COVID19 Legionella Ag: Lab Results Component Value Date LEGIONELLAPN Not Detected 10/03/2023 Strep Ag: No results for input(s): STREPPNEUMO in the last 72 hours. Imaging- ECHO 09/27; Left Ventricle: Left ventricle size is normal. Normal wall thickness. Mildly reduced left ventricular systolic function. The EF by visual approximation is 45%. Abnormal wall motion. There appears to be global hypokinesis, worse in apical segments. Right Ventricle: Right ventricle size is normal. Normal systolic function. Mitral Valve: Moderate (2+) regurgitation with a posterior directed jet. Left Atrium: Left atrium is severely dilated. LA Vol Index A/L is 50 mL/m2. No significant valvular abnormalities. Technically difficult study. . CXR 10/07/23 Lungs/Pleura: Background of emphysema. Left greater than right pleural effusions and bibasilar atelectasis and/or pneumonia, fairly similar on the left and slightly improved on the right. Pulmonary vascular congestion/interstitial edema. No pneumothorax. Assessment and Plan: Principal Problem: Seizure (HCC) Active Problems: Acute respiratory failure with hypoxia and hypercapnia (HCC) Assessment: Acute on chronic hypoxic hypercarbic resp failure likely 2/2 vocal cord dysfunction vs stenosis s/p trach (#6 shiley on 10/04/23), MSSA PNA, angely pleural effusions, Hx COPD Breakthrough GTC seizure, hx bi-hemispheric MCA strokes, recent traumatic SDH (08/05/23), prev SDH requiring crani/evac (01/2022) HFrEF (45%), Hx of Takotsubo CM, HTN, HPL Anemia Constipation Hx Crest syndrome Hx prior DVT (07/2022, not on OAC) Hx anxiety/depression Hx alcohol abuse FEN Debility Plan: Passed SBT today. Vent support as documented, consider trach collar trials. LTAC eval. Breakthrough sz 2/2 subtherapeutic dilantin level--Neuro CC has s/o but rec continue keppra 1gm BID ECHO as above with EF 45% and unchanged 2+ Mitral insuff. Cards c/s--rec'd it could be takotsubo CM again and could consider low dose GDMT. Cont asa/statin, lasix today. Follow trends, Transfuse prn <7.0 Improving after manual disimpaction from surgery on 09/30. Continue bowel regimen for now Recent traumatic SDH--to follow outpt with OP NSGY. Crest syndrome stable Anxiety severe, but improving. Cymbalta held as it cannot be crushed for PEG, increased lexapro. gabapentin nightly. On seroquel BID and prn vistaril Reportedly sober x3 years. No S&S of w/d. Tolerating goal TF, replace electrolytes prn, bowel regimen Pt/Ot Full Code. PC following, seen earlier in stay. Updated daughter. TCC aiding in placement GI Prophylaxis: Pantoprazole IV DVT Prophylaxis: Lovenox 40 q 24hr - creatinine clearance >30 Disposition: Remain in ICU Status Discussed plan of care with Dr. Suellen Villafuerte Images from the original note were not included. PHYSICAL THERAPY [facility] Re-Evaluation Name/MRN: Luiza May ([id number]) Evaluation Date: 10/06/2023 Date of : 1955 Admission Date: 09/26/2023 2:17 PM Age: 67 y.o. Room/Bed: T2-215/T2-215 A Discharge Recommendation: IP Rehab Equipment Needed: No Assessment IMPRESSION: PT re-eval completed d/t new trach/PEG and transfer to ICU. She was Mod A for bed mobility, Max A for transfers, and Mod A for ambulation bed > chair. Mainly limited d/t SOB and fatigue. Demo good motivation for progress. Would recommend IP rehab at discharge. Pt can tolerate 3 hr therapy/day. Diagnosis: seizure, acute respiratory failure, NEW diagnostic bronchoscopy, trach/PEG placement 10/03 Prognosis: good Performance Deficits /Impairments: Decreased Functional Mobility, Decreased Strength, Decreased Endurance, and Decreased Balance Decision Making: Medium Complexity Subjective Pt supine in bed. Agreeable to PT session. Cleared by nursing Pain: Pt denies any current pain. Past Medical History: Past Medical History: Diagnosis Date Asthma CAD (coronary artery disease) Cerebral artery occlusion with cerebral infarction (CMS/HCC) ([facility]) COPD (chronic obstructive pulmonary disease) ([facility]) Hypertension Past Surgical History: Past Surgical History: Procedure Laterality Date APPENDECTOMY CHOLECYSTECTOMY COLONOSCOPY COLONOSCOPY CT CHEST ANGIOGRAM W AND/OR WO IV CONTRAST 07/26/2022 CT CHEST ANGIOGRAM W AND/OR WO IV CONTRAST 07/26/[address] [facility] [address] IM[facility] Admission Diagnosis: Patient Active Problem List Diagnosis Date Noted Seizure ([facility]) 09/26/2023 Severe malnutrition (CMS/HCC) ([facility]) 07/26/2022 COPD exacerbation ([facility]) 07/25/2022 Acute respiratory failure with hypoxia and hypercapnia ([facility]) 09/26/2023 Hemorrhage of gastrointestinal tract 04/17/2017 Cerebrovascular accident (CVA) due to embolism of cerebral artery ([facility]) 02/12/2017 Acute deep vein thrombosis (DVT) of distal vein of right lower extremity ([facility]) 02/12/2017 Encephalopathy 02/12/2017 Posterior reversible encephalopathy syndrome (PRES) 02/12/2017 Alcohol abuse 02/10/2017 NSTEMI (non-ST elevated myocardial infarction) ([facility]) 02/10/2017 History of hematemesis 02/10/2017 Medical Precautions: No active isolations Proper PPE donned/doffed in accordance with facility standards. Fall Risk: Garcia Fall Risk Score: 75 (High Risk) Precautions/Restrictions: Lines/Drains/Airways: PIV, tach, PEG, soliman, tele Family/Caregiver Present: none Overall Cognitive Status: WFL Overall Orientation Status: Oriented x4 Vision: not assessed this session Hearing: normal Social/Functional History Patient admitted from home. Lives With: Spouse Type of Home: single family home Home Layout: Single Level Home Home Access: Bathroom Shower/Tub: Tub/Shower Combo Toilet: Standard Home Equipment: shower seat Homemaking Responsibilities: Independent Receives Help From: Family Active Couture Alterations Dressmaker: Yes Prior Level of Function ADL Assistance: Independent Ambulation Assistance: Independent Transfer Assistance: Independent Objective Lower Extremity Assessment AROM: WFL PROM: Not assessed this session Strength: WFL (grossly 3+/5 overall) Bed Mobility: Supine to sit: Mod Assist HOB elevated. Trunk assist, assist scooting hips to EOB. Initially Min A for seated balance, progressed to SBA Transfers Sit to stand: Max Assist Stand to sit: Max Assist EOB x1, chair x2 arm in arm with therapist. Standing several minutes for dependent pericare from second assist. SOB with increased time, SpO2 maintained WFL Ambulation Ambulation 1 Assistive device(s) used: arm in arm with PT Assist level: Mod Assist Distance (ft): 4' bed > chair Quality of gait: antalgic, shuffling, slow matt Sensation: WFL Outcome Measures AM-PAC How much HELP from another person do you currently need Turning from your back to your side while in a flat bed without using bedrails?: A Little Moving from lying on your back to sitting on the side of a flat bed without using bedrails?: A Little Moving to and from a bed to a chair (including a wheelchair)?: A Little Standing up from a chair using your arms (wheelchair or bedside chair)?: A Lot Walking in a hospital room?: A Lot Stair climbing assessed?: No AM-PAC Inpatient Mobility Raw Score (No Stairs) : 13 JH-HLM -HL Score: Static standing (1 or more minutes) Plan Pt would benefit from skilled acute PT services to address Strengthening, Balance Training, Functional Mobility Training, Endurance Training, Gait Training, Stair Training, Safety Education and Training, Patient/Caregiver Training, and Equipment Evaluation/Education. Frequency: 4x/week for 4 weeks Barriers: Decreased endurance, Upper extremity weakness, and Lower extremity weakness Safety/Education Safety Safety Devices in place: call light within reach, left in chair, gait belt, patient at risk for falls, and nurse notified Restraints: No Education Education Given To: patient Education Provided: PT Role, PT Goals, Plan of Care, Transfer Training, Equipment, Fall Prevention Education, Discharge Recommendations, and Benefits of Increasing Activity Education Method: Verbal Barriers to Learning: None Education Outcome: Verbalized Understanding Goals Patient Stated Goal: to get stronger Encounter Problems Encounter Problems (Active) Balance Patient will maintain dynamic standing balance for 5 minutes with modified independence in order to demonstrate decreased risk of falling. Start: 10/06/23 Expected End: 11/03/23 Mobility Patient will ambulate 50 feet with modified independence and least restrictive device in order to improve safety and independence with mobility. Start: 10/06/23 Expected End: 11/03/23 Transfers Patient will perform bed mobility with modified independence in order to improve independence and prepare for out of bed mobility. Start: 10/06/23 Expected End: 11/03/23 Patient will complete functional transfer with least restrictive device with modified independence in order to prepare for ambulation. Start: 10/06/23 Expected End: 11/03/23 Therapy Time Individual Co-treatment Time In 0810 Time Out 0837 Minutes 27 Timed Code Treatment Minutes: (re-eval, 1 FA) Kailee Wagner PT Patient's Physical Therapy Plan of Care supervision is transferred to a [facility] Services Physical Therapist. Goals and/or treatment plan was established in collaboration with patient/family/other representatives. Images from the original note were not included. [facility] Progress Note Luiza May AGE: 67 y.o. GENDER: female : 1955 Subjective: HISTORY of PRESENT ILLNESS HPI Luiza May is a 67 y.o. female who presents for a wound care follow up. HPI: Ms. May is a 67yo F with PMHx of COPD with Chronic Hypoxic respiratory failure on 2L of Oxygen and BiPAP at night (poor compliance) s/p tracheostomy (2022), HFpEF with Takotsubo Cardiomyopathy, CVA with chronic dysphagia and aspiration on altered diet with prior PEG tube (2022), hemorrhagic CVA s/p Surgical intervention at [facility] (2021), GERD, h/o VTE, Hypertension, depression, anxiety, h/o Breast Cancer, former EtOH abuse, Seizure disorder on Dilantin was sent to [facility] from [facility] for management of Encephalopathy secondary to Acute on chronic Hypoxic Hypercapnic respiratory failure and what seem to be a break through seizure. Wound Care consulted for left heel, left forearm and lip. Patient sitting in recliner chair. Treatment completed. PAST MEDICAL HISTORY Past Medical History: Diagnosis Date Asthma CAD (coronary artery disease) Cerebral artery occlusion with cerebral infarction (CMS/HCC) (HCC) COPD (chronic obstructive pulmonary disease) (HCC) Hypertension PAST SURGICAL HISTORY Past Surgical History: Procedure Laterality Date APPENDECTOMY CHOLECYSTECTOMY COLONOSCOPY COLONOSCOPY CT CHEST ANGIOGRAM W AND/OR WO IV CONTRAST 07/26/2022 CT CHEST ANGIOGRAM W AND/OR WO IV CONTRAST 07/26/[address] [facility] [address] [facility] FAMILY HISTORY No family history on file. SOCIAL HISTORY Social History Tobacco Use Smoking status: Former Types: Cigarettes Quit date: 07/13/2013 Years since quittin.2 Vaping Use Vaping Use: Never used Substance Use Topics Alcohol use: No Drug use: No ALLERGIES Allergies Allergen Reactions Tetanus Toxoid Swelling MEDICATIONS No current facility-administered medications on file prior to encounter. Current Outpatient Medications on File Prior to Encounter Medication Sig Dispense Refill albuterol 108 (90 Base) MCG/ACT inhaler Inhale 2 puffs as needed. 4 times daily as needed ARIPiprazole (Abilify) 2 MG tablet Take 2 mg by mouth in the morning. atorvastatin (Lipitor) 40 MG tablet Take 1 tablet by mouth Nightly. bisacodyl (Dulcolax) 10 MG suppository Insert 10 mg into the rectum Daily as needed. budesonide (Pulmicort) 0.5 MG/2ML nebulizer solution Take 2 mL (0.5 mg) by nebulization in the morning. Rinse mouth with water after use to reduce aftertaste and incidence of candidiasis. Do not swallow.. Do not start before August 05, 2022. 60 mL 11 cholecalciferol (Vitamin D-3) 25 MCG (1000 UT) capsule Take 1,000 Units by mouth in the morning. DULoxetine (Cymbalta) [address] capsule Take 60 mg by mouth in the morning. folic acid (Folvite) 1 MG tablet Take 1 mg by mouth in the morning. hydrogen peroxide 3 % external solution Apply topically as needed (Trach care). levalbuterol (Xopenex) 1.25 MG/3ML nebulizer solution Take 3 mL (1.25 mg) by nebulization in the morning and 3 mL (1.25 mg) at noon and 3 mL (1.25 mg) in the evening. 0 LORazepam (Ativan) 0.5 MG tablet Take 1 tablet (0.5 mg) by mouth every 6 hours as needed for anxiety for up to 10 days. 30 tablet 0 losartan (Cozaar) 25 MG tablet Take 25 mg by mouth in the morning. polyvinyl alcohol (Liquifilm Tears) 1.4 % ophthalmic solution Administer 1 drop into both eyes if needed for dry eyes. sennosides (Senokot) 8.6 MG tablet Take 8.6 mg by mouth in the morning. tiotropium (Spiriva) [address] 18 mcg into inhaler and inhale. REVIEW OF SYSTEMS Pertinent items are noted in HPI. Objective: BP 107/60 Pulse 101 Temp 37.4 C (99.3 F) (Bladder) Resp 20 Ht 1.575 m (5' 2.01 ) Wt 74.4 kg (164 lb 0.4 oz) SpO2 97% PF 48 L/min BMI 29.99 kg/m PHYSICAL EXAM General appearance: in no apparent distress, alert, and cooperative Skin: warm and dry Pulmonary: in no respiratory distress , intubated via trach Left forearm: 1.0cmx2.5cmx0.1cm. Celada tissue noted. Scant serosang drainage. Periwound fragile with bruising. Stable Bilateral Buttock: Red blanchable tissue. Excoriation noted. LABS CBC: Lab Results Component Value Date WBC 10.0 10/06/2023 HGB 8.0 10/06/2023 HGB 7.6 (L) 10/06/2023 HCT 24.1 (L) 10/06/2023 MCV 91.6 10/06/2023 PLT 237 10/06/2023 BMP: Lab Results Component Value Date NA 145 10/06/2023 K 3.9 10/06/2023 CL 102 10/06/2023 CO2 32 (H) 10/06/2023 PHOS 4.0 10/06/2023 BUN 18 (H) 10/06/2023 CREATININE 0.61 10/06/2023 PT/INR: No results found for: PROTIME , INR Prealbumin: No results found for: PREALBUMIN Albumin:No components found for: LABALBU Sed Rate:No results found for: SEDRATE Micro: No components found for: BC Assessment/Plan: Left forearm: Skin tear - Clean with NS, apply adaptic then cover with foam dressing daily and PRN Bilateral Buttock: MASD (d/t bodily fluids) - Apply ET mix. Leave JANITOR HELPER. Apply TID and PRN. No wounds to left heel Reposition q2hrs Incontinent check q2hrs Waffle cushion to chair Nutritional support Wound Care to follow Recommend to follow up at [facility] wound care center after hospital discharge. Any questions or concerns please secure chat [facility] wound/ostomy . Thank you for the consult! I personally obtained the starr and critical portions of the history and physical exam. I reviewed the labs, imaging studies, and electronic medical record. I reviewed the chart documentation and discussed the patient with treatment team members. I have edited the note to reflect my clinical findings and my assessment and plan. Please note, the time of this note does not reflect the time I saw this patient today, but the time of this documentaton. Portions of this note including HPI, ROS, impression/plan, and examination may have been copied forward from admission to today as to provide important historical information essential in contributing to medical decision making. Documentation has been reviewed and edited as necessary to support clinical decision making for today's visit and to reflect my own independent evaluation of this patient. Decision making for today's visit and to reflect my own independent evaluation of this patient. ICU Progress Note Name: Luiza May : 1955(67 y.o.) Date: 10/06/23 Team: MICU Attending: Dr. Villafuerte Subjective: Hospital Summary: 67 yo F PMH Chronic resp failure on 4L NC (s/p trach 07/2022; reversed a few months later), COPD, TIO CPAP QHS, HFpEF w/ takotsubo cardiomyopathy, Fall 01/08/2022 resulting in subdural hematoma requiring R crani/evac, bi-hemispheric strokes (MCA) with residual dysphagia (prev PEG), seizure disorder (on dilantin), prior DVT (07/2022, not on OAC), HTN/HLD, Crest syndrome, anxiety/depression, alcohol abuse. Pt with recent admission at [facility] after unwitnessed fall 08/05/2023 resulting in parafalcine SDH- Aspirin DC'ED at that time and was not followed up with NSGY d/t location/distance. Pt presented to OSH 09/24 for seizure. Prior to arrival there, was reportedly walking in to the bathroom when she started having tonic-clonic seizure activity lasting ~10 minutes, witnessed by fiance, called EMS and taken to OSH. Noted to have subtherapeutic dilantin level - was given keppra. Cont to have AMS, ABG with hypercarbic, pH 7.14, Co2 137 --> was intubated and transferred and admitted to [facility] ICU on 09/25. -09/26: +MSSA on PNA PCR--ancef started. -09/27: Extubated overnight. Required re-intubation that afternoon d/t hypoxia/increased WOB after getting up to BSC, desat ~65%, improved with BVM - eyes deviated to R -?seizure. Difficult to ventilate, started on versed gtt with improvement. -09/28: requiring ketamine/versed/precedex and still intermittently agitated. -09/29: only requiring ketamine. Passing SBT. -09/30: Some abd pain/distention. Imaging concerning for stool impaction. Manual disimpacted by surg. -10/01: Extubated to NIV, with some tachycardia, increased WOB which improved with precedex/ativan 10/02: Pt with Increased SOB, tachycardia, resp acidosis on NIV--re-intubated. After discussion with Pulm service, concern for component of vocal cord dysfunction--will need outpt f/u. 10/03: s/p trach (#6 cuffed shiley) and PEG 10/04: Hypotensive but with nml LA, hgb 6.0--on low dose levo briefly, transfused 1 unit PRBC & weaned off pressor 10/05: Pt with low Vts, high peaks, nml plateau pressures and desaturation (SpO2 80s)--BVM. Brief look with bronch did not demonstrate overt mucous plug Interval Events: As above--no overt mucous plugging noted on bronch (but could potentially been dislodged with bagging). If issues arise again would likely need repeat bronch to see if trach is positional vs mucous plugging. Pt sitting up in chair, sleepy but easily arousable. Denies pain at present, states her anxiety seems to be improving. Precedex gtt turned off this AM. Scheduled Meds:aspirin, 81 mg, Oral, Daily atorvastatin, 40 mg, Oral, Nightly bisacodyl, 10 mg, Rectal, Daily budesonide, 0.5 mg, Nebulization, Daily DULoxetine, 60 mg, Oral, Daily enoxaparin, 40 mg, SubCUTAneous, Daily escitalopram, 10 mg, Oral, Daily folic acid, 1 mg, Oral, Daily gabapentin, 300 mg, Oral, Nightly ipratropium-albuterol, 3 mL, Nebulization, Q4H levETIRAcetam, 1,000 mg, Oral, BID pantoprazole (ProtoNix) 40 mg in sodium chloride (PF) 0.9 % 10 mL injection, 40 mg, IntraVENous, Nightly polyethylene glycol (PEG) 3350, 17 g, Oral, BID [START ON 10/07/2023] predniSONE, 20 mg, Oral, Daily Followed by [START ON 10/09/2023] predniSONE, 10 mg, Oral, Daily Followed by [START ON 10/11/2023] predniSONE, 5 mg, Oral, Daily propofol, 5-50 mcg/kg/min (Ramona), IntraVENous, Once artificial tears, 1 drop, Both Eyes, Daily QUEtiapine, 100 mg, Oral, Nightly QUEtiapine, 50 mg, Oral, Daily Senna, 10 mL, Oral, BID stomahesive in petrolatum, , Topical, q8h thiamine (Vitamin B1) 100 mg in sodium chloride 0.9 % 100 mL IVPB, 100 mg, IntraVENous, q24h Continuous Infusions:dexmedeTOMIDine, 0.1-0.6 mcg/kg/hr, Last Rate: 0.6 mcg/kg/hr (10/06/23 9900) Objective: Last Vitals: BP MAP 114/67 (10/06/23 0500) 81 (10/06/23 0500) Arterial BP MAP Temp 37.6 C (99.7 F) (10/06/23599) Pulse 101 (10/06/23821) Resp 20 (10/06/23821) SpO2 98 % (10/06/23821) Weight 74.4 kg (164 lb 0.4 oz) (10/06/23599) BMI Body mass index is 29.99 kg/m . I/O: 10/04 699 - 10/05 658 In: 2353.8 [I.V.:945.8] Out: 1550 [Urine:1550] NET +7.6L (+6.8L yest). Ventilator: Resp Rate (Set): 20 Vt (Set, mL): 300 mL IP Set (cm H2O): 27 cm H2O FiO2 (%): 40 % PEEP/CPAP (cm H2O): 10 cm H20 Inspiratory Time (sec): 0.95 sec Oxygen Delivery: O2 Flow Rate (L/min): 4 L/min Invasive Lines / Tubes / Drains: CVC Triple Lumen 09/26/23 Non-tunneled Right Internal jugular (Active) Number of days: 8 NG/OG Tube Orogastric 16 Fr Left mouth (Active) Number of days: 0 Urethral Catheter Temperature probe 18 Fr. (Active) Number of days: 8 ETT 7 mm (Active) Number of days: 0 Wounds: Wound/Incision 09/26/23 Traumatic Lip Left;Upper (Active) Date First Assessed: 09/26/23 Present on Original Admission: Yes Primary Wound Type: Traumatic Location: Lip Wound Location Orientation: Left;Upper Wound/Incision 10/03/23 Other (comment) Perineum (Active) Date First Assessed: 10/03/23 Primary Wound Type: Other (comment) Location: Perineum Wound Description (Comments): Incontinence-related dermatitis Non-staged Wound Description: Not applicable Constitutional: General Appearance [x]WDWN []Obese []Cachectic []Thin []Ill Eyes: Inspection of Pupils/Irises Pupils round and react: [x]Yes []No Sclera: []Icteric [x]Non-Icteric Inspection of Conjunctiva/Lids Conjunctiva: [x]Injected []Non-Injected Lids: [x]Intact []Lesion Present ENT/Mouth: External Inspection of ears/nose [x] Normal [] Scar/Lesion/Mass Inspection of teeth/lips/gums Dentition: [x][place] Teeth []Dentures Lips/Gums: []Intact []Lesion Present Mucosa: []Celada []Moist []Dry Neck: External Appearance Overall Appearance: [x]Normal []Lesion/Mass/Crepitus Present Trachea midline: [x]Yes []No Thyroid []Normal []Enlarged []Tender []Mass []Absent Respiratory: Respiratory effort []Labored []Non-Labored [x] Mechanically-Ventilated--trach to vent Auscultation []Clear--diminished throughout lung smith, no wheezes heard []Crackles []Wheezes []Rhonchi Cardiovascular: Auscultation Rate: [x]Regular []Irregular []Tachycardia []Bradycardia Rhythm: [x]Regular []Irregular Murmur: []Present [x]Absent Extremities Peripheral Edema: []Present [x]Absent Varicosities: []Present [x]Absent Gastrointestinal: Abdomen Palpation: [x]Soft []Firm []Tender []Non-Tender []Distended [x]Non-distended Mass: []Present [x]Absent Bowel Sounds: [x]Present []Absent Hernia: []Present [x]Absent Liver/Spleen: []Hepatosplenomegaly []Organomegaly Absent Musculoskeletal: Inspection of Digits and Nails Cyanosis: []Present [x]Absent Clubbing: []Present [x]Absent Ischemia: []Present [x]Absent Infection: []Present []Absent Extremities REGALADO Equally: YES ([]RUE []RLE []LUE []LLE) Strength/Tone: Intact and Normal ([]RUE []RLE []LUE []LLE) Skin: Inspection [x]Normal []Rash []Lesion []Ulcer Palpation [x]Warm []Cool []Dry []Clammy []Nodules []Induration []Skin-tightening Cap-Refill: [x] <3 sec [] >3 seconds (delayed) Neurologic: GCS EYE: 4 - Opens spontaneously GCS MOTOR: 6 - Obeys commands for movement GCS VERBAL: 4 - Confused Total GCS: 14 [] Sensation grossly intact Psych: Mental Status Alert: [x]Yes [] No Oriented: []x0 []X1 []X2 [x]x3 Mood/Affect []Normal []Flat []Agitated []Depressed []Anxious []Calm []Sedated [x]NAD [facility] within last 24 hours- BMP: Recent Labs 10/04/2342610/05/23 0617 10/06/23 0010 NA 140 142 145 K 3.4* 3.2* 3.9 CL 103 102 102 CO2 29 33* 32* BUN 15 15 18* CREATININE 0.45* 0.59 0.61 CALCIUM 8.9 8.9 9.0 MG 1.8 1.6 1.6 PHOS 3.1 2.7 4.0 LFTs:No results for input(s): AST , ALT , PROT , ALBUMIN , BILITOT , BILIRUBINU , ALKPHOS , LIPASE in the last 72 hours. Glucose: Recent Labs 10/04/2342610/05/23 0617 10/06/23 0010 GLUCOSE 102* 115* 137* Procal: No results for input(s): PROCAL in the last 72 hours. CBC: Recent Labs 10/04/2342610/04/23 0829 10/05/23 0617 10/05/23 1102 10/06/23 0010 10/06/23 0343 WBC 8.2 -- 5.3 -- 10.0 -- HGB 6.9* < > 6.0* 7.2* 7.6* 8.0 HCT 22.0* < > 19.3* 22.6* 24.1* -- PLT 219 -- 183 -- 237 -- MCV 92.4 -- 91.9 -- 91.6 -- RDW 14.4 -- 14.3 -- 14.7 -- < > = values in this interval not displayed. ABGs: Recent Labs 10/04/2334210/05/23 03410/06/23 034 PHART 7.391 7.459* 7.362 COM9JIR 48.0* 45.7* 60.6* PO2ART 164.0* 117.0* 361.3* CIX6ZTP 28.5* 31.7* 33.6* [id number] 50% Oxygen 40% Oxygen Vent Lactic Acid: Recent Labs 10/05/23 0617 LACTATE 0.6* INR: No results for input(s): INR in the last 72 hours. Cardiac Injury Profile: No results for input(s): CKTOTAL , CKMB , TROPONINI in the last 72 hours. Labs in Last 3 months: Lab Results Component Value Date TSH 1.049 10/03/2023 Microbiology- 10/02 PNA PCR: Negative 10/02 Resp Cx: Pending. Gram stain with no organisms seen 09/26 Blood Cx: NGTD 09/26 MRSA PCR: negative 09/26 Resp PCR: negative 09/26 PNA PCR: +MSSA 09/26 Urine Antigens: Negative 09/26 Resp Cx: few resp ailyn present Imaging- EEG 09/25: IMPRESSION AND ACTIONS TAKEN: This routine EEG with video is abnormal. Continuous RIGHT hemisphere predominant generalized slowing is seen with intermixed fast frequencies. This activity is not responsive to stimulation. No epileptiform activity nor seizures are observed. No sleep architecture is captured. The findings are consistent with with RIGHT hemisphere predominant dysfunction supportive of a breach rhythm (as seen through a skull defect) superimposed on a [id number] global encephalopathy. CTA Chest 09/26: IMPRESSION: Minimal bilateral pleural effusions and adjacent slight infiltrate or atelectasis. CTH 09/26; IMPRESSION: No acute findings MRI Brain 09/26: IMPRESSION: 1. Areas of encephalomalacia in the right occipital and high left posterior parietal lobes with peripheral hemosiderin deposition consistent with remote infarcts or brain injury with prior peripheral hemorrhage. 2. Small area of encephalomalacia in the high right frontoparietal cortex and questionably the posterior aspect of the right hemisphere without hemosiderin deposition consistent with small remote infarcts or brain injury. 3. Nonspecific white matter hyperintensities most likely related to chronic ischemia and/or small vessel disease. 4. No evidence of acute ischemic disease or other acute or significant intracranial abnormality. 5. Prior large right craniotomy. 6. Acute right sphenoid sinusitis 7. Mild bilateral ethmoid and minimal left frontal sinus disease likely chronic. ECHO 09/27; Left Ventricle: Left ventricle size is normal. Normal wall thickness. Mildly reduced left ventricular systolic function. The EF by visual approximation is 45%. Abnormal wall motion. There appears to be global hypokinesis, worse in apical segments. Right Ventricle: Right ventricle size is normal. Normal systolic function. Mitral Valve: Moderate (2+) regurgitation with a posterior directed jet. Left Atrium: Left atrium is severely dilated. LA Vol Index A/L is 50 mL/m2. No significant valvular abnormalities. Technically difficult study. . CXR 09/29: IMPRESSION: Bilateral pleural effusions. No acute process. CXR 09/30: Comparison: Previous day Findings: Cardiac silhouette is enlarged. Support devices are similar. Probable chronic interstitial changes present. Subtle basilar infiltrates not excluded. Follow-up recommended. KUB 09/30: IMPRESSION: Impression: Significant gaseous distention of the bowel, presumed obstruction. Large portion of the dilated bowel loops appear to be colonic and Eli's is a consideration. Follow-up recommended. CT abd/pelvis 09/30: FINDINGS: 1. Dilatation of the colon with distended rectum with stool (possible fecal impaction) with wall thickening of the rectum with what appears to be a small amount of pneumatosis in the anterior rectal wall compatible with proctitis. 2. Small bilateral pleural effusions with adjacent atelectatic changes lower lung smith. 3. Subcutaneous edema both flanks and dependent back, moderate aortoiliac calcific atherosclerosis, NGT/Soliman catheter, mild superior endplate depression T12 with Schmorl's node. KUB 10/01: IMPRESSION: 1. NG tube in place. 2. Moderate dilatation of colon. 3. Significant air-fluid levels or free air cannot be evaluated on this supine-only study. KUB 10/02: IMPRESSION: 1. New OG tube with its tip in the stomach. 2. Stable dilatation of bowel loops. Assessment and Plan: Principal Problem: Seizure (HCC) Active Problems: Acute respiratory failure with hypoxia and hypercapnia (HCC) Assessment: Acute on chronic hypoxic hypercarbic resp failure likely 2/2 vocal cord dysfunction vs stenosis s/p trach (#6 zaynab on 10/04/23), MSSA PNA, angely pleural effusions, Hx COPD Breakthrough GTC seizure, hx bi-hemispheric MCA strokes, recent traumatic SDH (08/05/23), prev SDH requiring crani/evac (01/23) New HFrEF in setting of prev Takotsubo CM, Hx HTN, HPL Anemia Constipation Hx Crest syndrome Hx prior DVT (07/2022, not on OAC) Hx Crest syndrome Hx anxiety/depression Hx alcohol abuse FEN Debility Full Code Plan: ABG with mild compensated acidosis likely 2/2 last night's event. Cxr with angely pleural effusions (Net +7.6L)-->redose lasix BID today, then daily tomorrow. DC precedex gtt (increased nightly to 100mg; keep 50mg in AM). Cont nebs, steroid taper, attempt PS trial 11/09 2hrs BID as tolerated. Finished 7D course antibx 10/03. Will need outpt ENT to eval for VCD vs stenosis as CT chest without severe stage COPD that would cause this level of resp distress. Breakthrough sz 2/2 subtherapeutic dilantin level--Neuro CC has s/o but rec continue keppra 1gm BID, asa, statin. ECHO as above with EF 45% and unchanged 2+ Mitral insuff. Prev ECHO in care every where with EF 55% with Mitral Dx on 10/09/22. Cards c/s--rec'd it could be takotsubo CM again and could consider low dose GDMT. Cont asa/statin, lasix today. EKG 10/02 with NSR. Hgb 7.6 this AM s/p 1 unit PRBC. No S&S of overt bleeding, likely component of dilution (net +7.6L) and acute blood anemia with Trach/peg. Transfuse prn <7.0 or if becomes symptomatic Improving after manual disimpaction from surgery on 09/30. Continue bowel regimen for now Recent traumatic SDH--to follow outpt with OP NSGY. Crest syndrome stable Anxiety severe, but improving. Continue home Cymbalta, lexapro, gabapentin nightly. On seroquel BID here and prn vistaril Reportedly sober x3 years. No S&S of w/d. Ethanol level neg on admit Tolerating goal TF, replace electrolytes prn, bowel regimen Pt/Ot Full Code. PC following, seen earlier in stay. Updated daughter Ameena via phone. TCC aiding in placement GI Prophylaxis: Pantoprazole IV DVT Prophylaxis: Lovenox 40 q 24hr - creatinine clearance >30 Disposition: Remain in ICU. If no other issues arise with Trach/Vts/desaturations could consider transferring to 7W tomorrow as today is 48hrs post new trach Plan discussed with Dr. Villafuerte Critical Care Time: 35mins Total critical care time caring for this patient with life threatening, unstable organ failure, including direct patient contact, management of life support systems, review of data including imaging and labs, discussions with other team members and physicians, excluding procedures. Physician called to bedside due to increased heart rate and decreased tidal volumes on the vent. Patient bronched at bedside. Irritation in the airways noted. Patient improved post bronch. Nutrition Assessment Type and Reason for Visit: Reassess Nutrition Recommendations/Plan: Continue with current EN and goal rate: Vital 1.5 @ 35 mls/hour. Monitor EN rate/tolerance. Monitor nutritional status. Malnutrition Assessment: Malnutrition Status: Severe malnutrition (per RD assessment 07/26/23.) Context: Chronic Illness Findings of the 6 clinical characteristics of malnutrition: Energy Intake: (receives nutrition via EN (per assessment 07/28)) Weight Loss: Greater than 7.5% over 3 months (12.2 % loss of UBW x 4 months (07/26/23)) Body Fat Loss: Severe body fat loss Orbital, Buccal region Muscle Mass Loss: Severe muscle mass loss Temples (temporalis), Hand (interosseous) Fluid Accumulation: Mild Extremities Software Requirements Engineer Strength: Not Performed Nutrition Assessment: Pt is a 67 year old male with PMH significant for COPD with chronic hypoxic respiratory failure on 2L of Oxygen and BiPAP at night (poor compliance) s/p tracheostomy (2022), HFpEF with Takotsubo Cardiomyopathy, CVA with chronic dysphagia and aspiration on altered diet with prior PEG tube (2022), hemorrhagic CVA s/p surgical intervention at [facility] (2021), GERD, h/o VTE, HTN, depression, anxiety, h/o Breast Cancer, former EtOH abuse, seizure disorder on Dilantin who presents from [facility] for management of encephalopathy d/t acute on chronic hypoxic hypercapnic respiratory failure and an apparent break-through seizure. Wound Care consulted for left heel, left forearm and lip. Pt continues on vent. She is s/p trach/PEG yesterday 10/04/23. Vital 1.5 @ 35 mls/hour. Estimated Daily Nutrient Needs: Energy Requirements Based On: Kcal/kg Weight Used for Energy Requirements: Ramona Weight for Energy Calculation (kg): 50 kg Total Energy Requirements (kcals/day): 25-30 kcals/kg = 5613-6704 kcals/day Weight Used for Protein Requirements: Ramona Weight in Kg Used for Protein Requirements: 50 kg Estimated Total Protein (g/day): 1.2-1.4g protein/kg = 60-70g protein/day Estimated Daily Total Fluid (ml/day): per MD Nutrition Related Findings: +BS, abd soft, ND, NT. +BM 10/04/23, Vital 1.5 @ 30 mls/hour. PEG tube in place, bumper loosened at skin. Edema: trace BUE, +1 BLE edema. Wound Type: Multiple Net IO Since Admission: 7,069.93 mL [10/05/23 1541] Current Nutrition Therapies: Enteral Nutrition Feeding Route: PEG EN Formula: Vital 1.5 Kelvin EN Schedule: Continuous EN Feeding Regimen: Vital 1.5 @ 10 mls/hour, increase 10 mls every 4 hours to goal of 35 mls/hour Water Flushes: 30 mls every 4 hours Current EN & Flush Order Provides: Vital 1.5 @ 30 mls/hour. Goal EN & Flush Order Provides: Vital 1.5 @ 35 mls/hour = 1260 kcals, 56g protein, 641 mls free H20 = 25 kcals/kg + 1.12g protein/kg IBW. Anthropometric Measures: Height: 157.5 cm (5' 2.01 ) Current Body Weight: 77.4 kg (170 lb 10.2 oz) (10/04/23; 70.8kg previous weight) Weight Source: Bed Scale Admission Body Weight: 72.2 kg (159 lb 2.8 oz) Ramona Body Weight (lbs) (Calculated): 110 lbs Ramona Body Weight (Kg) (Calculated): 50 kg % Ramona Body Weight (Calculated): 155.1 % BMI (kg/m2) (Calculated): 31.2 BMI Categories: Obese Class 1 (BMI 30.0-34.9) Wt Readings from Last 10 Encounters: 10/04/23 77.4 kg (170 lb 10.2 oz) 07/26/22 55.2 kg (121 lb 9.6 oz) LABS: Recent Labs 10/03/23 0424 10/04/23 0427 10/05/23 0617 NA 142 140 142 K 3.9 3.4* 3.2* CL 106 103 102 CO2 30 29 33* BUN 17 15 15 CREATININE 0.48* 0.45* 0.59 GLUCOSE 109* 102* 115* CALCIUM 9.1 8.9 8.9 MG 1.9 1.8 1.6 PHOS 3.5 3.1 2.7 K+ - decreased, CO2 - elevated, BG - elevated. Nutrition Diagnosis: Altered GI function related to impaired respiratory function as evidenced by NPO or clear liquid status due to medical condition, intubation, nutrition support - enteral nutrition Nutrition Interventions: Nutrition Education/Counseling: No recommendation at this time Coordination of Nutrition Care: Continue to monitor while inpatient Goals: Goals: Tolerate nutrition support at goal rate, by next RD assessment Nutrition Monitoring and Evaluation: Food/Nutrient Intake Outcomes: Enteral Nutrition Intake/Tolerance Physical Signs/Symptoms Outcomes: Biochemical Data, GI Status, Weight, Skin, Nutrition Focused Physical Findings, Hemodynamic Status, Fluid Status or Edema Discharge Planning: Too soon to determine Jamila Wiley RD,LD,[facility] Contact: *[phone] or Markit Chat Images from the original note were not included. Palliative Care Progress Note Chief Complaint: Luiza May is a 67 y.o. female with chief complaint of shortness of breath. Palliative Care is signing off, please re-consult if needed. (add SIGNOFFTRANSITION dotphrase below) Assessment/Plan Acute on chronic respiratory failure - hx COPD, prior trach and peg - tolerating SBT - per ICU: budesonide nebs, cefazolin, duonebs, prednisone taper, ketamine gtt stopped this morning, one time dose morphine 2mg iv this morning - underwent trach and peg 10/04/23, tolerating well - mouths she had been through this before, aware next steps of select etc Agitation/anxiety - per ICU duloxetine, escitalopram, gabapentin, quetiapine twice daily, precedex gtt, prn hydroxyzine - not as anxious for me this morning, slept well overnight Seizures - Per ICU: levetiracetam HX CVA/SDH - CHRO resided at home with s/o - PT/OT when able Risk for constipation - due to immobility - per ICU: schedule polyethylene glycol and senna syrup - having BM Hypotension - per ICU norepinephrine gtt HX ETOH abuse - no longer active drinker - per ICU: folic acid and thiamine Palliative Care Encounter -full code - without LW or HCPOA - - goals clear, continued aggressive interventions, underwent trach and peg, plans for select at dc - without symptoms that require management will sign off at this time Luiza May has been seen in consultation by [facility] during their admission to [facility]. They currently have no uncontrolled symptoms and have established goals of care and we have signed off of their case. The patient has established follow-up with select at id . Total of 40 minutes spent on this encounter including Chart review, Patient visit and exam, Documentation in EHR, Care coordination, Communicating with primary attending or other consultants, and Counseling and educating patient/family/caregiver. Discharge planning: Signing off, discharge disposition per primary team Patient meets criteria for general inpatient hospice care including the following: N/A - Palliative Care Patient Referrals to: None Discussed patient and the plan of care with the other interdisciplinary team (IDT) members of Palliative Care Team, and with Primary Attending, Patient, Family, and Floor Nurse Insert attestation statement here if applicable (.disupervision) or (.npattest) I have discussed the patient's case and plan of care with my collaborating physician Dr. Cobian Subjective: Subjective/Events Since last seen: underwent trach and peg, awakens easily to verbal stimuli mouths simple yes and no questions appropriately. Slight soreness from surgery but no CP, abdominal pain, breathing easy, no nausea, vomiting, having BM, tolerating TF Luiza May is a 67 y.o. female living at home with s/o, PMHx includes: COPD, prior trach/peg 07/2022, HFpEF, takotsubo cardiomyopathy, HTN, fall last year with SDH requiring R crani/evacuation, anxiety, ETOH abuse, seizures, brought to [facility] for seizures however supratherapeutic dilantin level, hypercarbic requiring intubation and transfer to [facility] ICU level of care. Was successfully extubated however within a few hours with difficulty oxygenating requiring re-intubation. Palliative care consulted for goals of care Goals of care:Continue Current Management Functional Assessment: PPS: 30% Advance Directives: Full Code Surrogate: Child Prognosis: unknown Spiritual assessment: No spiritual distress identified Bereavement and grief: Grief Issues Not Identified Review of Systems ROS: See palliative care ROS/ESAS below; All other systems were reviewed and are negative. Canones Symptom Assessment Score Canones Score Pain Score 0 Tiredness Score 5 Nausea Score 0 Depression Score 0 Anxiety Score 0 Drowsiness Score 5 Anorexia Score (0= eating well, 10= not eating) 10 Wellbeing Score (10= worst sense of well-being) 10 Constipation 0 Dyspnea Score (0= no shortness of breath) 10 FLACC Scale (For Pain Assessment of the Non-Verbal Patient) Nods head no to pain Assessed by: patient and provider. Social history: status: no Marital status: Living status: with partner / significant other Work history: unknown Family Meeting: (if discussing Advanced Care Planning, include .PALLACP) Participants: none held Family meeting was held to discuss:N/A Objective: Physical Exam BP 106/62 Pulse 91 Temp 37.3 C (99.1 F) Resp 20 Ht 5' 2.01 (1.575 m) Wt 170 lb 10.2 oz (77.4 kg) SpO2 97% PF 48 L/min BMI 31.20 kg/m Physical Exam Vitals and nursing note reviewed. Constitutional: Appearance: She is ill-appearing. HENT: Head: Normocephalic and atraumatic. Nose: Nose normal. Mouth/Throat: Mouth: Mucous membranes are moist. Eyes: General: Right eye: No discharge. Left eye: No discharge. Pupils: Pupils are equal, round, and reactive to light. Neck: Comments: Trach midline Cardiovascular: Rate and Rhythm: Normal rate and regular rhythm. Pulses: Normal pulses. Heart sounds: Normal heart sounds. No murmur heard. Comments: No edema B post tib/dorsalis pedis palpable Pulmonary: Effort: Pulmonary effort is normal. Breath sounds: Decreased breath sounds present. Abdominal: General: Bowel sounds are normal. There is no distension. Palpations: Abdomen is soft. There is no mass. Comments: Peg with TF Genitourinary: Comments: Soliman to gravity Musculoskeletal: Cervical back: Normal range of motion and neck supple. Right lower leg: No edema. Left lower leg: No edema. Skin: General: Skin is warm and dry. Comments: fragile Neurological: Comments: Mouths simple yes and no answers appropriately Psychiatric: Behavior: Behavior is cooperative. Comments: No agitation Current Medications: Inpatient medications reviewed: yes Home medications reviewed: no OARRS Reviewed: copied from initial consult: Yes-no reportable medications 24 Hour PRN Meds: reviewed Results/Verification of Data Review Objective data reviewed (be specific which labs, imaging reports with dates reviewed): MAR/vitals/labs/CXR/KUB reports reviewed 10/05/23 Data in Support of Terminal Illness: Is patient hospice appropriate? TBD Spiritual Care Note [facility] Palliative Care Patient Name:Luiza May Chief Complaint: No chief complaint on file. Reason for visit: Follow Up Services Provided To:patient and care team Background and visit note: Conferred with Palliative Care. Patient is trached and on the ventilator. Patient is not as interactive today. Opened eyes and tracked. No family present. Provided words of encouragement and supportive prayer. A total time of 20 minutes was spent with this encounter including conferring with staff, visitation and documentation. Is there spiritual distress? YES Comment: Patient appeared withdrawn Interventions: spiritual support provided, emotional support provided, and alleviation of fear and anxiety. Care Plan: regain a sense of hope/optimism, spiritual reflection, find peace/acceptance, and connect to higher power. Follow Up: PRN. Debriefed: Palliative Care provider . Anurag Coburn 10/05/23 Images from the original note were not included. [facility] Progress Note Luiza May AGE: 67 y.o. GENDER: female : 1955 Subjective: HISTORY of PRESENT ILLNESS HPI Luiza May is a 67 y.o. female who presents for a wound care follow up. HPI: Ms. May is a 67yo F with PMHx of COPD with Chronic Hypoxic respiratory failure on 2L of Oxygen and BiPAP at night (poor compliance) s/p tracheostomy (2022), HFpEF with Takotsubo Cardiomyopathy, CVA with chronic dysphagia and aspiration on altered diet with prior PEG tube (2022), hemorrhagic CVA s/p Surgical intervention at [facility] (2021), GERD, h/o VTE, Hypertension, depression, anxiety, h/o Breast Cancer, former EtOH abuse, Seizure disorder on Dilantin was sent to [facility] from [facility] for management of Encephalopathy secondary to Acute on chronic Hypoxic Hypercapnic respiratory failure and what seem to be a break through seizure. Wound Care consulted for left heel, left forearm and lip. Dressing to left arm changed at time of visit. PAST MEDICAL HISTORY Past Medical History: Diagnosis Date Asthma CAD (coronary artery disease) Cerebral artery occlusion with cerebral infarction (CMS/HCC) (HCC) COPD (chronic obstructive pulmonary disease) (HCC) Hypertension PAST SURGICAL HISTORY Past Surgical History: Procedure Laterality Date APPENDECTOMY CHOLECYSTECTOMY COLONOSCOPY COLONOSCOPY CT CHEST ANGIOGRAM W AND/OR WO IV CONTRAST 07/26/2022 CT CHEST ANGIOGRAM W AND/OR WO IV CONTRAST 07/26/[address] [facility] [address] IMAGING FAMILY HISTORY No family history on file. SOCIAL HISTORY Social History Tobacco Use Smoking status: Former Types: Cigarettes Quit date: 07/13/2013 Years since quittin.2 Vaping Use Vaping Use: Never used Substance Use Topics Alcohol use: No Drug use: No ALLERGIES Allergies Allergen Reactions Tetanus Toxoid Swelling MEDICATIONS No current facility-administered medications on file prior to encounter. Current Outpatient Medications on File Prior to Encounter Medication Sig Dispense Refill albuterol 108 (90 Base) MCG/ACT inhaler Inhale 2 puffs as needed. 4 times daily as needed ARIPiprazole (Abilify) 2 MG tablet Take 2 mg by mouth in the morning. atorvastatin (Lipitor) 40 MG tablet Take 1 tablet by mouth Nightly. bisacodyl (Dulcolax) 10 MG suppository Insert 10 mg into the rectum Daily as needed. budesonide (Pulmicort) 0.5 MG/2ML nebulizer solution Take 2 mL (0.5 mg) by nebulization in the morning. Rinse mouth with water after use to reduce aftertaste and incidence of candidiasis. Do not swallow.. Do not start before August 05, 2022. 60 mL 11 cholecalciferol (Vitamin D-3) 25 MCG (1000 UT) capsule Take 1,000 Units by mouth in the morning. DULoxetine (Cymbalta) [address] capsule Take 60 mg by mouth in the morning. folic acid (Folvite) 1 MG tablet Take 1 mg by mouth in the morning. hydrogen peroxide 3 % external solution Apply topically as needed (Trach care). levalbuterol (Xopenex) 1.25 MG/3ML nebulizer solution Take 3 mL (1.25 mg) by nebulization in the morning and 3 mL (1.25 mg) at noon and 3 mL (1.25 mg) in the evening. 0 LORazepam (Ativan) 0.5 MG tablet Take 1 tablet (0.5 mg) by mouth every 6 hours as needed for anxiety for up to 10 days. 30 tablet 0 losartan (Cozaar) 25 MG tablet Take 25 mg by mouth in the morning. polyvinyl alcohol (Liquifilm Tears) 1.4 % ophthalmic solution Administer 1 drop into both eyes if needed for dry eyes. sennosides (Senokot) 8.6 MG tablet Take 8.6 mg by mouth in the morning. tiotropium (Spiriva) [address] 18 mcg into inhaler and inhale. REVIEW OF SYSTEMS Pertinent items are noted in HPI. Objective: BP 106/62 Pulse 88 Temp 37.3 C (99.1 F) Resp 20 Ht 1.575 m (5' 2.01 ) Wt 77.4 kg (170 lb 10.2 oz) SpO2 97% PF 48 L/min BMI 31.20 kg/m PHYSICAL EXAM General appearance: in no apparent distress, alert, and cooperative Skin: warm and dry Pulmonary: in no respiratory distress Lip: resolved Left heel: Blanchable pink tissue. No openings. No drainage. Periwound fragile Left forearm: 1.0cmx2.5cmx0.1cm. Celada tissue noted. Scant serosang drainage. Periwound fragile with bruising. Stable Bilateral Buttock: Red blanchable tissue. Excoriation noted. LABS CBC: Lab Results Component Value Date WBC 5.3 10/05/2023 HGB 7.2 (L) 10/05/2023 HGB 7.5 10/05/2023 HCT 22.6 (L) 10/05/2023 MCV 91.9 10/05/2023 PLT 183 10/05/2023 BMP: Lab Results Component Value Date NA 142 10/05/2023 K 3.2 (L) 10/05/2023 CL 102 10/05/2023 CO2 33 (H) 10/05/2023 PHOS 2.7 10/05/2023 BUN 15 10/05/2023 CREATININE 0.59 10/05/2023 PT/INR: No results found for: PROTIME , INR Prealbumin: No results found for: PREALBUMIN Albumin:No components found for: LABALBU Sed Rate:No results found for: SEDRATE Micro: No components found for: BC Assessment/Plan: Left forearm: Skin tear - Clean with NS, apply adaptic then cover with foam dressing daily and PRN Bilateral Buttock: MASD (d/t bodily fluids) - Apply ET mix. Leave CHECO. Apply TID and PRN. No wounds to left heel Nutritional support Wound Care to follow Recommend to follow up at [facility] wound care center after hospital discharge. Any questions or concerns please secure chat [facility] wound/ostomy . Thank you for the consult! I personally obtained the starr and critical portions of the history and physical exam. I reviewed the labs, imaging studies, and electronic medical record. I reviewed the chart documentation and discussed the patient with treatment team members. I have edited the note to reflect my clinical findings and my assessment and plan. Please note, the time of this note does not reflect the time I saw this patient today, but the time of this documentaton. Portions of this note including HPI, ROS, impression/plan, and examination may have been copied forward from admission to today as to provide important historical information essential in contributing to medical decision making. Documentation has been reviewed and edited as necessary to support clinical decision making for today's visit and to reflect my own independent evaluation of this patient. Decision making for today's visit and to reflect my own independent evaluation of this patient. ICU Progress Note Name: Luiza May : 1955(67 y.o.) Date: 10/05/23 Team: MICU Attending: Dr. Villafuerte Subjective: Hospital Summary: 67 yo F PMH Chronic resp failure on 4L NC (s/p trach 07/2022; reversed a few months later), COPD, TIO CPAP QHS, HFpEF w/ takotsubo cardiomyopathy, Fall 01/08/2022 resulting in subdural hematoma requiring R crani/evac, bi-hemispheric strokes (MCA) with residual dysphagia (prev PEG), seizure disorder (on dilantin), prior DVT (07/2022, not on OAC), HTN/HLD, Crest syndrome, anxiety/depression, alcohol abuse. Pt with recent admission at [facility] after unwitnessed fall 08/05/2023 resulting in parafalcine SDH- Aspirin DC'ED at that time and sas not followed up with NSGY d/t location/distance. Pt presented to OSH 09/24 for seizure. Prior to arrival there, was reportedly walking in to the bathroom when she started having tonic-clonic seizure activity lasting ~10 minutes, witnessed by bertha, called EMS and taken to OSH. Noted to have subtherapeutic dilantin level - was given keppra. Cont to have AMS, ABG with hypercarbic, pH 7.14, Co2 137 --> was intubated and transferred and admitted to [facility] ICU on 09/25. -09/26: +MSSA on PNA PCR--ancef started. -09/27: Extubated overnight. Required re-intubation that afternoon d/t hypoxia/increased WOB after getting up to BSC, desat ~65%, improved with BVM - eyes deviated to R -?seizure. Difficult to ventilate, started on versed gtt with improvement. -09/28: requiring ketamine/versed/precedex and still intermittently agitated. -09/29: only requiring ketamine. Passing SBT. -09/30: Some abd pain/distention. Imaging concerning for stool impaction. Manual disimpacted by surg. -10/01: Extubated to NIV, with some tachycardia, increased WOB which improved with precedex/ativan 10/02: Pt with Increased SOB, tachycardia, resp acidosis on NIV--re-intubated. After discussion with Pulm service, concern for component of vocal cord dysfunction--will need outpt f/u. 10/03: s/p trach (#6 cuffed shiley) and PEG 10/04: hypotensive but with nml LA, hgb 6.0--transfused 1 unit PRBC Interval Events: Hgb 6.0 overnight--given 1unit PRBC, repeat 7.2. BP improved. Pt currently on low dose precedex and ketamine--pt calm, resting in bed, denies pain. Scheduled Meds:aspirin, 81 mg, Oral, Daily atorvastatin, 40 mg, Oral, Nightly bisacodyl, 10 mg, Rectal, Daily budesonide, 0.5 mg, Nebulization, Daily DULoxetine, 60 mg, Oral, Daily enoxaparin, 40 mg, SubCUTAneous, Daily escitalopram, 10 mg, Oral, Daily folic acid, 1 mg, Oral, Daily gabapentin, 300 mg, Oral, Nightly ipratropium-albuterol, 3 mL, Nebulization, Q4H levETIRAcetam, 1,000 mg, IntraVENous, BID pantoprazole (ProtoNix) 40 mg in sodium chloride (PF) 0.9 % 10 mL injection, 40 mg, IntraVENous, Nightly polyethylene glycol (PEG) 3350, 17 g, Oral, BID potassium chloride, 40 mEq, Oral, BID predniSONE, 40 mg, Oral, Daily Followed by [START ON 10/07/2023] predniSONE, 20 mg, Oral, Daily Followed by [START ON 10/09/2023] predniSONE, 10 mg, Oral, Daily Followed by [START ON 10/11/2023] predniSONE, 5 mg, Oral, Daily artificial tears, 1 drop, Both Eyes, Daily QUEtiapine, 50 mg, Oral, Nightly QUEtiapine, 50 mg, Oral, Daily Senna, 10 mL, Oral, BID stomahesive in petrolatum, , Topical, q8h thiamine (Vitamin B1) 100 mg in sodium chloride 0.9 % 100 mL IVPB, 100 mg, IntraVENous, q24h Continuous Infusions:dexmedeTOMIDine, 0.1-1 mcg/kg/hr, Last Rate: 0.4 mcg/kg/hr (10/05/23 1236) ketamine 500 mg in sodium chloride 0.9 % 250 mL infusion, 0.05-2 mg/kg/hr (Ramona), Last Rate: Stopped (10/05/23 1030) norepinephrine, 1-100 mcg/min, Last Rate: Stopped (10/05/23 1045) Objective: Last Vitals: BP MAP (!) 98/49 (10/05/23 1300) 63 (10/05/23 1300) Arterial BP MAP Temp 37.1 C (98.8 F) (10/05/23 1300) Pulse 108 (10/05/23 1329) Resp 19 (10/05/23 1329) SpO2 99 % (10/05/23 1329) Weight 77.4 kg (170 lb 10.2 oz) (10/04/23 0600) BMI Body mass index is 31.2 kg/m . I/O: 10/03 699 - 10/04 658 In: 3231.7 [I.V.:2841.7] Out: 3760 [Urine:3750] NET +6.8L (+7.3L yest). Ventilator: Resp Rate (Set): 20 Vt (Set, mL): 300 mL IP Set (cm H2O): 27 cm H2O FiO2 (%): 40 % PEEP/CPAP (cm H2O): 8 cm H20 Inspiratory Time (sec): 0.8 sec Oxygen Delivery: O2 Flow Rate (L/min): 4 L/min Invasive Lines / Tubes / Drains: CVC Triple Lumen 09/26/23 Non-tunneled Right Internal jugular (Active) Number of days: 8 NG/OG Tube Orogastric 16 Fr Left mouth (Active) Number of days: 0 Urethral Catheter Temperature probe 18 Fr. (Active) Number of days: 8 ETT 7 mm (Active) Number of days: 0 Wounds: Wound/Incision 09/26/23 Traumatic Lip Left;Upper (Active) Date First Assessed: 09/26/23 Present on Original Admission: Yes Primary Wound Type: Traumatic Location: Lip Wound Location Orientation: Left;Upper Wound/Incision 10/03/23 Other (comment) Perineum (Active) Date First Assessed: 10/03/23 Primary Wound Type: Other (comment) Location: Perineum Wound Description (Comments): Incontinence-related dermatitis Non-staged Wound Description: Not applicable Constitutional: General Appearance [x]WDWN []Obese []Cachectic []Thin []Ill Eyes: Inspection of Pupils/Irises Pupils round and react: [x]Yes []No Sclera: []Icteric [x]Non-Icteric Inspection of Conjunctiva/Lids Conjunctiva: [x]Injected []Non-Injected Lids: [x]Intact []Lesion Present ENT/Mouth: External Inspection of ears/nose [x] Normal [] Scar/Lesion/Mass Inspection of teeth/lips/gums Dentition: [x][place] Teeth []Dentures Lips/Gums: []Intact []Lesion Present Mucosa: [][place] []Moist []Dry Neck: External Appearance Overall Appearance: [x]Normal []Lesion/Mass/Crepitus Present Trachea midline: [x]Yes []No Thyroid []Normal []Enlarged []Tender []Mass []Absent Respiratory: Respiratory effort []Labored []Non-Labored [x] Mechanically-Ventilated Auscultation []Clear--diminished throughout lung smith, no wheezes heard []Crackles []Wheezes [][place]hon[place] Cardiovascular: Auscultation Rate: [x]Regular []Irregular []Tachycardia []Bradycardia Rhythm: [x]Regular []Irregular Murmur: []Present [x]Absent Extremities Peripheral Edema: []Present [x]Absent Varicosities: []Present [x]Absent Gastrointestinal: Abdomen Palpation: [x]Soft []Firm []Tender []Non-Tender []Distended [x]Non-distended Mass: []Present [x]Absent Bowel Sounds: [x]Present []Absent Hernia: []Present [x]Absent Liver/Spleen: []Hepatosplenomegaly []Organomegaly Absent Musculoskeletal: Inspection of Digits and Nails Cyanosis: []Present [x]Absent Clubbing: []Present [x]Absent Ischemia: []Present [x]Absent Infection: []Present []Absent Extremities [place] Equally: YES ([]RUE []RLE []LUE []LLE) Strength/Tone: Intact and Normal ([]RUE []RLE []LUE []LLE) Skin: Inspection [x]Normal []Rash []Lesion []Ulcer Palpation [x]Warm []Cool []Dry []Clammy []Nodules []Induration []Skin-tightening Cap-Refill: [x] <3 sec [] >3 seconds (delayed) Neurologic: GCS EYE: 4 - Opens spontaneously GCS MOTOR: 6 - Obeys commands for movement GCS VERBAL: 4 - Confused Total GCS: 14 [] Sensation grossly intact Psych: Mental Status Alert: [x]Yes [] No Oriented: []x0 []X1 [x]X2-3 []x3 Mood/Affect []Normal []Flat []Agitated []Depressed []Anxious []Calm []Sedated [x]NAD [facility] Labs within last 24 hours- BMP: Recent Labs 10/03/2342310/04/2342610/05/23 0617 NA 142 140 142 K 3.9 3.4* 3.2* CL 106 103 102 CO2 30 29 33* BUN 17 15 15 CREATININE 0.48* 0.45* 0.59 CALCIUM 9.1 8.9 8.9 MG 1.9 1.8 1.6 PHOS 3.5 3.1 2.7 LFTs:No results for input(s): AST , ALT , PROT , ALBUMIN , BILITOT , BILIRUBINU , ALKPHOS , LIPASE in the last 72 hours. Glucose: Recent Labs 10/03/2342310/04/23 0427 10/05/23 0617 GLUCOSE 109* 102* 115* Procal: No results for input(s): PROCAL in the last 72 hours. CBC: Recent Labs 10/03/23 04210/03/23 0937 10/04/23 0427 10/04/23 0829 10/05/23 0343 10/05/23 0617 10/05/23 1102 WBC 10.7 -- 8.2 -- -- 5.3 -- HGB 7.3* < > 6.9* 7.2* 7.5 6.0* 7.2* HCT 23.7* -- 22.0* 22.8* -- 19.3* 22.6* PLT 224 -- 219 -- -- 183 -- MCV 93.3 -- 92.4 -- -- 91.9 -- RDW 14.3 -- 14.4 -- -- 14.3 -- < > = values in this interval not displayed. ABGs: Recent Labs 10/03/23 1107 10/04/23 0343 10/05/23 0343 PHART 7.305* 7.391 7.459* [id number] 57.0* 48.0* 45.7* PO2ART 98.9 164.0* 117.0* [id number] 27.7* 28.5* 31.7* [id number] Vent 50% Oxygen 40% Oxygen Lactic Acid: Recent Labs 10/05/23 0617 LACTATE 0.6* INR: No results for input(s): INR in the last 72 hours. Cardiac Injury Profile: No results for input(s): CKTOTAL , CKMB , TROPONINI in the last 72 hours. Labs in Last 3 months: Lab Results Component Value Date TSH 1.049 10/03/2023 Microbiology- 10/02 PNA PCR: Negative 10/02 Resp Cx: Pending. Gram stain with no organisms seen 09/26 Blood Cx: NGTD 09/26 MRSA PCR: negative 09/26 Resp PCR: negative 09/26 PNA PCR: +MSSA 09/26 Urine Antigens: Negative 09/26 Resp Cx: few resp ailyn present Imaging- EEG 09/25: IMPRESSION AND ACTIONS TAKEN: This routine EEG with video is abnormal. Continuous RIGHT hemisphere predominant generalized slowing is seen with intermixed fast frequencies. This activity is not responsive to stimulation. No epileptiform activity nor seizures are observed. No sleep architecture is captured. The findings are consistent with with RIGHT hemisphere predominant dysfunction supportive of a breach rhythm (as seen through a skull defect) superimposed on a vobklkuf-co-iigrze global encephalopathy. CTA Chest 09/26: IMPRESSION: Minimal bilateral pleural effusions and adjacent slight infiltrate or atelectasis. CTH 09/26; IMPRESSION: No acute findings MRI Brain 09/26: IMPRESSION: 1. Areas of encephalomalacia in the right occipital and high left posterior parietal lobes with peripheral hemosiderin deposition consistent with remote infarcts or brain injury with prior peripheral hemorrhage. 2. Small area of encephalomalacia in the high right frontoparietal cortex and questionably the posterior aspect of the right hemisphere without hemosiderin deposition consistent with small remote infarcts or brain injury. 3. Nonspecific white matter hyperintensities most likely related to chronic ischemia and/or small vessel disease. 4. No evidence of acute ischemic disease or other acute or significant intracranial abnormality. 5. Prior large right craniotomy. 6. Acute right sphenoid sinusitis 7. Mild bilateral ethmoid and minimal left frontal sinus disease likely chronic. ECHO 09/27; Left Ventricle: Left ventricle size is normal. Normal wall thickness. Mildly reduced left ventricular systolic function. The EF by visual approximation is 45%. Abnormal wall motion. There appears to be global hypokinesis, worse in apical segments. Right Ventricle: Right ventricle size is normal. Normal systolic function. Mitral Valve: Moderate (2+) regurgitation with a posterior directed jet. Left Atrium: Left atrium is severely dilated. LA Vol Index A/L is 50 mL/m2. No significant valvular abnormalities. Technically difficult study. . CXR 09/29: IMPRESSION: Bilateral pleural effusions. No acute process. CXR 09/30: Comparison: Previous day Findings: Cardiac silhouette is enlarged. Support devices are similar. Probable chronic interstitial changes present. Subtle basilar infiltrates not excluded. Follow-up recommended. KUB 09/30: IMPRESSION: Impression: Significant gaseous distention of the bowel, presumed obstruction. Large portion of the dilated bowel loops appear to be colonic and [place]'s is a consideration. Follow-up recommended. CT abd/pelvis 09/30: FINDINGS: 1. Dilatation of the colon with distended rectum with stool (possible fecal impaction) with wall thickening of the rectum with what appears to be a small amount of pneumatosis in the anterior rectal wall compatible with proctitis. 2. Small bilateral pleural effusions with adjacent atelectatic changes lower lung smith. 3. Subcutaneous edema both flanks and dependent back, moderate aortoiliac calcific atherosclerosis, NGT/Soliman catheter, mild superior endplate depression T12 with Schmorl's node. KUB 10/01: IMPRESSION: 1. NG tube in place. 2. Moderate dilatation of colon. 3. Significant air-fluid levels or free air cannot be evaluated on this supine-only study. KUB 10/02: IMPRESSION: 1. New OG tube with its tip in the stomach. 2. Stable dilatation of bowel loops. Assessment and Plan: Principal Problem: Seizure (HCC) Active Problems: Acute respiratory failure with hypoxia and hypercapnia (HCC) Assessment: Acute on chronic hypoxic hypercarbic resp failure likely 2/2 vocal cord dysfunction vs stenosis s/p trach (#6 shishelley on 10/04/23), MSSA PNA, Hx COPD Breakthrough GTC seizure, hx bi-hemispheric MCA strokes, recent traumatic SDH (08/05/23), prev SDH requiring crani/evac (01/23) Hypotension New HFrEF in setting of prev Takotsubo CM, Hx HTN, HPL Anemia Constipation Hx Crest syndrome Hx prior DVT (07/2022, not on OAC) Hx Crest syndrome Hx anxiety/depression Hx alcohol abuse FEN Debility Full Code Plan: ABG stable on minimal vent settings. Cxr with angely pleural effusions and Net +6.8L--redose lasix x1 today. Consider placing on PS trail tomorrow. On ketamine/precedex for sedation--wean off as able. Cont nebs, steroids (change to taper). Finished 7D course antibx 10/03. Consider ENT to eval for VCD vs stenosis as CT chest without severe stage COPD that would cause this level of resp distress. Breakthrough sz 2/2 subtherapeutic dilantin level--Neuro CC has s/o but rec continue keppra 1gm BID (can change to PO after PEG), cont asa, statin. Likely 2/2 hgb 6.0--LA nml even with soft BPs. Remains off pressors ECHO as above with EF 45% and unchanged 2+ Mitral insuff. Prev ECHO in care every where with EF 55% with Mitral Dx on 10/09/22. Cards c/s--rec'd it could be takotsubo CM again and could consider low dose GDMT. Cont asa/statin, lasix x1 today, EKG 10/02 with NSR. Hgb 7.0 this AM--repeat 7.2. No S&S of overt bleeding, likely component of dilution (net +6.8L) and acute blood anemia with Trach/peg. Transfuse prn <7.0 or if becomes symptomatic Improving after manual disimpaction from surgery on 09/30. Continue bowel regimen for now Recent traumatic SDH--to follow outpt with OP NSGY. Crest syndrome stable Anxiety severe, but improving. Continue home Cymbalta, lexapro, gabapentin nightly. On seroquel BID here and prn vistaril Reportedly sober x3 years. No S&S of w/d. Ethanol level neg on admit NPO until after trach, replace electrolytes prn, bowel regimen Pt/Ot Full Code. PC following, seen earlier in stay. Updated daughter Ameena via phone GI Prophylaxis: Pantoprazole IV DVT Prophylaxis: Lovenox 40 q 24hr - creatinine clearance >30 Disposition: Remain in ICU Plan discussed with Dr. Villafuerte Critical Care Time: 35mins Total critical care time caring for this patient with life threatening, unstable organ failure, including direct patient contact, management of life support systems, review of data including imaging and labs, discussions with other team members and physicians, excluding procedures. Department of General Surgery Daily Progress Note SICU Service ADMIT DATE: 09/26/2023 TODAY'S DATE: 10/05/2023 SUBJECTIVE: S/p trach/PEG yesterday. Hgb 7.0 this AM, given 1U pRBC per MICU. OBJECTIVE: VITALS: BP (!) 81/39 Pulse 97 Temp 37.6 C (99.7 F) Resp 21 Ht 1.575 m (5' 2.01 ) Wt 77.4 kg (170 lb 10.2 oz) SpO2 99% PF 48 L/min BMI 31.20 kg/m INTAKE/OUTPUT: I/O last 3 completed shifts: In: 3777.1 (48.8 mL/kg) [I.V.:3302.1 (42.7 mL/kg); NG/GT:475] Out: 4445 (57.4 mL/kg) [Urine:4435 (1.6 mL/kg/hr); Blood:10] Weight: 77.4 kg No intake/output data recorded. PHYSICAL EXAM: Gen: NAD, pain well controlled Heart: Well perfused Lungs: symmetric chest rise, normal work of breathing with tracheostomy in place Abd: soft, non tender, non distended. Non rigid. PEG tube in place, bumper loosened at skin Ext: no c/c/e no gross deformities Skin: warm, well perfused, <2 cm cap refill, no obvious rashes, cellulitis or gross discoloration LABS CBC: Recent Labs 10/03/2342310/03/23 0937 10/04/237 10/04/23 0829 10/05/23 0343 10/05/23 0617 WBC 10.7 -- 8.2 -- -- 5.3 HGB 7.3* < > 6.9* 7.2* 7.5 6.0* HCT 23.7* -- 22.0* 22.8* -- 19.3* PLT 224 -- 219 -- -- 183 < > = values in this interval not displayed. BMP: Recent Labs 10/03/2342310/04/2342610/05/23 0617 NA 142 140 142 K 3.9 3.4* 3.2* CL 106 103 102 CO2 30 29 33* BUN 17 15 15 CREATININE 0.48* 0.45* 0.59 GLUCOSE 109* 102* 115* Hepatic: No results for input(s): AST , ALT , BILITOT , ALKPHOS in the last 72 hours. No lab exists for component: ALB Current Inpatient Medications Scheduled Meds:aspirin, 81 mg, Oral, Daily atorvastatin, 40 mg, Oral, Nightly bisacodyl, 10 mg, Rectal, Daily budesonide, 0.5 mg, Nebulization, Daily ceFAZolin, 2,000 mg, IntraVENous, q8h DULoxetine, 60 mg, Oral, Daily enoxaparin, 40 mg, SubCUTAneous, Daily escitalopram, 10 mg, Oral, Daily folic acid, 1 mg, Oral, Daily gabapentin, 300 mg, Oral, Nightly ipratropium-albuterol, 3 mL, Nebulization, Q4H levETIRAcetam, 1,000 mg, IntraVENous, BID pantoprazole (ProtoNix) 40 mg in sodium chloride (PF) 0.9 % 10 mL injection, 40 mg, IntraVENous, Nightly polyethylene glycol (PEG) 3350, 17 g, Oral, BID potassium chloride, 40 mEq, Oral, BID predniSONE, 40 mg, Oral, Daily Followed by [START ON 10/07/2023] predniSONE, 20 mg, Oral, Daily Followed by [START ON 10/09/2023] predniSONE, 10 mg, Oral, Daily Followed by [START ON 10/11/2023] predniSONE, 5 mg, Oral, Daily artificial tears, 1 drop, Both Eyes, Daily QUEtiapine, 50 mg, Oral, Nightly QUEtiapine, 50 mg, Oral, Daily Senna, 10 mL, Oral, BID thiamine (Vitamin B1) 100 mg in sodium chloride 0.9 % 100 mL IVPB, 100 mg, IntraVENous, q24h Continuous Infusions:dexmedeTOMIDine, 0.1-1 mcg/kg/hr, Last Rate: 0.8 mcg/kg/hr (10/05/23 0656) ketamine 500 mg in sodium chloride 0.9 % 250 mL infusion, 0.05-2 mg/kg/hr (Ramona), Last Rate: 0.6 mg/kg/hr (10/05/23219) norepinephrine, 1-100 mcg/min PRN Meds:PRN medications: acetaminophen, hydrOXYzine pamoate, naloxone, ondansetron ODT OR ondansetron, Propylene Glycol-Glycerin, sodium chloride, sodium chloride ASSESSMENT AND PLAN: 67 y.o. female s/p redo tracheostomy and PEG tube placement - Surgicel removed, PEG bumper loosened - Rest of management per MICU - Surgery to sign off, please reach out with questions or concerns - DW Dr. Renzo Sutton MD General Surgery PGY-3 Pager # [phone] Associated attestation - Seth Muller MD - 10/05/2023 10:48 PM EDT ~~~~~~~~~~~~~~~~~~~~~~~~~~~~~~~~~~~~ ~~~~~~~~~~~~~~~~~~~~~~~ Attending physician addendum: Patient Active Problem List Diagnosis Alcohol abuse Cerebrovascular accident (CVA) due to embolism of cerebral artery (HCC) NSTEMI (non-ST elevated myocardial infarction) (HCC) History of hematemesis Hemorrhage of gastrointestinal tract Acute deep vein thrombosis (DVT) of distal vein of right lower extremity (HCC) Encephalopathy Posterior reversible encephalopathy syndrome (PRES) COPD exacerbation (HCC) Severe malnutrition (CMS/HCC) (HCC) Seizure (HCC) Acute respiratory failure with hypoxia and hypercapnia (HCC) I independently saw and evaluated the patient. I personally obtained the starr and critical portions of the history and physical exam. I personally reviewed patient's labs and imaging studies. I reviewed and agree with the resident's assessment/plan as documented in their note, with any additional comments/corrections noted below. Thank for letting us participate in this patient's care. Please, call with questions Panfilo Muller MD FACS Trauma, Surgical Critical Care, & General Surgery Division of Trauma Department of Surgery [facility] P Spiritual Care Note [facility] Palliative Care Patient Name:Luiza May Chief Complaint: No chief complaint on file. Reason for visit: Follow Up Services Provided To:patient and care team Background and visit note: Conferred with patient's nurse. No family present. Patient is alert. Communicates by head nodding. Patient indicated that she was disappointed that she was now able to breathe on her own. Patient indicated that she had been trached before. Patient shared that she was anxious whether she was going be able to recover this time. Provided companionship, encouragement and supportive prayer. A total time of 25 minutes was spent with this encounter including conferring with staff, visitation and documentation. Is there spiritual distress? YES Comment: Patient is discouraged and anxious. Interventions: spiritual support provided, emotional support provided, empathetic listening, validated feelings, and alleviation of fear and anxiety. Care Plan: regain a sense of hope/optimism, spiritual integration, find peace/acceptance, and connect to higher power. Follow Up: daily. Debriefed: with patients nurse. Anuarg Coburn 10/04/23 Please see full details from the history and physical exam in the resident's / nurse practitioner's note Patient awake and interactive on a vent A> 67 y/o female with VDRF and dysphagia P> - OR plans - re-do tracheostomy and PEG tube placement I had a long discussion with the patient regarding the risks, benefits, alternatives and limitations of surgery. The risks include however not limited to infection, bleeding, bowel and neck injury, pneumothorax, oropharyngeal and esophageal injury including perforation, tracheostomy cannula and PEG tube dislodgement requiring additional procedures / surgeries, as well as pulmonary and cardiac complications. Patient expressed understanding about the procedure and its associated risks and consented to proceed with surgery. Consent was obtained by her daughter Ameena May. Panfilo Muller MD FACS Trauma, Surgical Critical Care, & General Surgery Division of Trauma Department of Surgery [facility] P Images from the original note were not included. PHYSICAL THERAPY [facility] Name/MRN: Luiza May ([id number]) Date: 10/04/2023 PT held. Patient re-intubated 10/03/23. Currently with orders for strict bedrest. Maribel Murdock PT ICU Progress Note Name: Luiza May : 1955(67 y.o.) Date: 10/04/23 Team: MICU Attending: Dr. Villafuerte Subjective: Hospital Summary: 67 yo F PMH Chronic resp failure on 4L NC (s/p trach 07/2022; reversed a few months later), COPD, TIO CPAP QHS, HFpEF w/ takotsubo cardiomyopathy, Fall 01/08/2022 resulting in subdural hematoma requiring R crani/evac, bi-hemispheric strokes (MCA) with residual dysphagia (prev PEG), seizure disorder (on dilantin), prior DVT (07/2022, not on OAC), HTN/HLD, Crest syndrome, anxiety/depression, alcohol abuse. Pt with recent admission at [facility] after unwitnessed fall 08/05/2023 resulting in parafalcine SDH- Aspirin DC'ED at that time and sas not followed up with NSGY d/t location/distance. Pt presented to OSH 09/24 for seizure. Prior to arrival there, was reportedly walking in to the bathroom when she started having tonic-clonic seizure activity lasting ~10 minutes, witnessed by fiance, called EMS and taken to OSH. Noted to have subtherapeutic dilantin level - was given keppra. Cont to have AMS, ABG with hypercarbic, pH 7.14, Co2 137 --> was intubated and transferred and admitted to [facility] ICU on 09/25. -09/26: +MSSA on PNA PCR--ancef started. -09/27: Extubated overnight. Required re-intubation that afternoon d/t hypoxia/increased WOB after getting up to BSC, desat ~65%, improved with BVM - eyes deviated to R -?seizure. Difficult to ventilate, started on versed gtt with improvement. -09/28: requiring ketamine/versed/precedex and still intermittently agitated. -09/29: only requiring ketamine. Passing SBT. -09/30: Some abd pain/distention. Imaging concerning for stool impaction. Manual disimpacted by surg. -10/01: Extubated to NIV, with some tachycardia, increased WOB which improved with precedex/ativan 10/02: Pt with Increased SOB, tachycardia, resp acidosis on NIV--re-intubated. After discussion with Pulm service, concern for component of vocal cord dysfunction--will need outpt f/u. Interval Events: Plan for Trach/PEG today. Pt currently on ketamine and precedex. Follows all commands at present. Scheduled Meds:aspirin, 81 mg, Oral, Daily atorvastatin, 40 mg, Oral, Nightly bisacodyl, 10 mg, Rectal, Daily budesonide, 0.5 mg, Nebulization, Daily ceFAZolin, 2,000 mg, IntraVENous, q8h DULoxetine, 60 mg, Oral, Daily enoxaparin, 40 mg, SubCUTAneous, Daily escitalopram, 10 mg, Oral, Daily folic acid, 1 mg, Oral, Daily furosemide, 40 mg, IntraVENous, Once gabapentin, 300 mg, Oral, Nightly ipratropium-albuterol, 3 mL, Nebulization, Q4H levETIRAcetam, 1,000 mg, IntraVENous, BID methylPREDNISolone sod suc (PF), 40 mg, IntraVENous, q24h pantoprazole (ProtoNix) 40 mg in sodium chloride (PF) 0.9 % 10 mL injection, 40 mg, IntraVENous, Nightly polyethylene glycol (PEG) 3350, 17 g, Oral, BID artificial tears, 1 drop, Both Eyes, Daily QUEtiapine, 25 mg, Oral, Daily QUEtiapine, 50 mg, Oral, Nightly Senna, 10 mL, Oral, BID thiamine (Vitamin B1) 100 mg in sodium chloride 0.9 % 100 mL IVPB, 100 mg, IntraVENous, q24h Continuous Infusions:dexmedeTOMIDine, 0.1-1.5 mcg/kg/hr, Last Rate: 1.5 mcg/kg/hr (10/04/23412) ketamine 500 mg in sodium chloride 0.9 % 250 mL infusion, 0.05-2 mg/kg/hr (Ramona), Last Rate: 0.55 mg/kg/hr (10/04/23622) norepinephrine, 1-100 mcg/min, Last Rate: 3 mcg/min (10/04/23101) Objective: Last Vitals: BP MAP 143/83 (10/04/23729) 96 (10/04/23729) Arterial BP MAP Temp 37.5 C (99.5 F) (10/04/23729) Pulse 80 (10/04/23729) Resp 21 (10/04/23729) SpO2 100 % (10/04/23729) Weight 77.4 kg (170 lb 10.2 oz) (10/04/23599) BMI Body mass index is 31.2 kg/m . I/O: 10/02 699 - 10/03 658 In: 1214.4 [I.V.:1129.4] Out: 1030 [Urine:1030] NET +7.3L (+7.1L yest). Ventilator: Resp Rate (Set): 20 Vt (Set, mL): 300 mL IP Set (cm H2O): 27 cm H2O FiO2 (%): 40 % PEEP/CPAP (cm H2O): 10 cm H20 Inspiratory Time (sec): 0.8 sec Oxygen Delivery: O2 Flow Rate (L/min): 4 L/min Invasive Lines / Tubes / Drains: CVC Triple Lumen 09/26/23 Non-tunneled Right Internal jugular (Active) Number of days: 8 NG/OG Tube Orogastric 16 Fr Left mouth (Active) Number of days: 0 Urethral Catheter Temperature probe 18 Fr. (Active) Number of days: 8 ETT 7 mm (Active) Number of days: 0 Wounds: Wound/Incision 09/26/23 Traumatic Lip Left;Upper (Active) Date First Assessed: 09/26/23 Present on Original Admission: Yes Primary Wound Type: Traumatic Location: Lip Wound Location Orientation: Left;Upper Wound/Incision 10/03/23 Other (comment) Perineum (Active) Date First Assessed: 10/03/23 Primary Wound Type: Other (comment) Location: Perineum Wound Description (Comments): Incontinence-related dermatitis Non-staged Wound Description: Not applicable Constitutional: General Appearance [x]WDWN []Obese []Cachectic []Thin []Ill Eyes: Inspection of Pupils/Irises Pupils round and react: [x]Yes []No Sclera: []Icteric [x]Non-Icteric Inspection of Conjunctiva/Lids Conjunctiva: [x]Injected []Non-Injected Lids: [x]Intact []Lesion Present ENT/Mouth: External Inspection of ears/nose [x] Normal [] Scar/Lesion/Mass Inspection of teeth/lips/gums Dentition: [x][place] Teeth []Dentures Lips/Gums: []Intact []Lesion Present Mucosa: []Celada []Moist []Dry Neck: External Appearance Overall Appearance: [x]Normal []Lesion/Mass/Crepitus Present Trachea midline: [x]Yes []No Thyroid []Normal []Enlarged []Tender []Mass []Absent Respiratory: Respiratory effort []Labored []Non-Labored [x] Mechanically-Ventilated Auscultation []Clear--diminished throughout lung smith, no wheezes heard []Crackles []Wheezes []Rhonchi Cardiovascular: Auscultation Rate: [x]Regular []Irregular []Tachycardia []Bradycardia Rhythm: [x]Regular []Irregular Murmur: []Present [x]Absent Extremities Peripheral Edema: []Present [x]Absent Varicosities: []Present [x]Absent Gastrointestinal: Abdomen Palpation: [x]Soft []Firm []Tender []Non-Tender []Distended [x]Non-distended Mass: []Present [x]Absent Bowel Sounds: [x]Present []Absent Hernia: []Present [x]Absent Liver/Spleen: []Hepatosplenomegaly []Organomegaly Absent Musculoskeletal: Inspection of Digits and Nails Cyanosis: []Present [x]Absent Clubbing: []Present [x]Absent Ischemia: []Present [x]Absent Infection: []Present []Absent Extremities REGALADO Equally: YES ([]RUE []RLE []LUE []LLE) Strength/Tone: Intact and Normal ([]RUE []RLE []LUE []LLE) Skin: Inspection [x]Normal []Rash []Lesion []Ulcer Palpation [x]Warm []Cool []Dry []Clammy []Nodules []Induration []Skin-tightening Cap-Refill: [x] <3 sec [] >3 seconds (delayed) Neurologic: GCS EYE: 4 - Opens spontaneously GCS MOTOR: 6 - Obeys commands for movement GCS VERBAL: 4 - Confused--intubated so unable to fully assess Total GCS: 14 [] Sensation grossly intact Psych: Mental Status Alert: [x]Yes [] No Oriented: []x0 []X1 [x]X2-3; intubated so unable to fully assess []x3 Mood/Affect []Normal []Flat []Agitated []Depressed []Anxious []Calm []Sedated [x]NAD Select Labs within last 24 hours- BMP: Recent Labs 10/02/2344110/03/2342310/04/23426 NA 143 142 140 K 3.3* 3.9 3.4* CL 104 106 103 CO2 29 30 29 BUN 16 17 15 CREATININE 0.64 0.48* 0.45* CALCIUM 9.3 9.1 8.9 MG 2.0 1.9 1.8 PHOS 3.4 3.5 3.1 LFTs:No results for input(s): AST , ALT , PROT , ALBUMIN , BILITOT , BILIRUBINU , ALKPHOS , LIPASE in the last 72 hours. Glucose: Recent Labs 10/02/2344110/03/2342310/04/23426 GLUCOSE 104* 109* 102* Procal: Recent Labs 10/02/23441 PROCAL 0.09 CBC: Recent Labs 10/02/23441 09/30/24 2105 10/03/23 0424 10/03/23 0937 10/03/23 1107 10/04/2334210/04/23426 WBC 10.8* -- 10.7 -- -- -- 8.2 HGB 7.7* < > 7.3* < > 7.8 7.7 6.9* HCT 25.4* -- 23.7* -- -- -- 22.0* PLT 178 -- 224 -- -- -- 219 MCV 93.0 -- 93.3 -- -- -- 92.4 RDW 14.5 -- 14.3 -- -- -- 14.4 < > = values in this interval not displayed. ABGs: Recent Labs 10/03/23 0937 10/03/23110610/04/23342 PHART 7.203* 7.305* 7.391 [id number] 74.5* 57.0* 48.0* PO2ART 88.2 98.9 164.0* OVE0RFE 28.7* 27.7* 28.5* [id number] 40% Oxygen Vent 50% Oxygen Lactic Acid: No results for input(s): LACTATE in the last 72 hours. INR: No results for input(s): INR in the last 72 hours. Cardiac Injury Profile: No results for input(s): CKTOTAL , CKMB , TROPONINI in the last 72 hours. Labs in Last 3 months: Lab Results Component Value Date TSH 1.049 10/03/2023 Microbiology- 10/02 PNA PCR: Negative 10/02 Resp Cx: Pending. Gram stain with no organisms seen 09/26 Blood Cx: NGTD 09/26 MRSA PCR: negative 09/26 Resp PCR: negative 09/26 PNA PCR: +MSSA 09/26 Urine Antigens: Negative 09/26 Resp Cx: few resp ailyn present Imaging- EEG 09/25: IMPRESSION AND ACTIONS TAKEN: This routine EEG with video is abnormal. Continuous RIGHT hemisphere predominant generalized slowing is seen with intermixed fast frequencies. This activity is not responsive to stimulation. No epileptiform activity nor seizures are observed. No sleep architecture is captured. The findings are consistent with with RIGHT hemisphere predominant dysfunction supportive of a breach rhythm (as seen through a skull defect) superimposed on a [id number] global encephalopathy. CTA Chest 09/26: IMPRESSION: Minimal bilateral pleural effusions and adjacent slight infiltrate or atelectasis. CTH 09/26; IMPRESSION: No acute findings MRI Brain 09/26: IMPRESSION: 1. Areas of encephalomalacia in the right occipital and high left posterior parietal lobes with peripheral hemosiderin deposition consistent with remote infarcts or brain injury with prior peripheral hemorrhage. 2. Small area of encephalomalacia in the high right frontoparietal cortex and questionably the posterior aspect of the right hemisphere without hemosiderin deposition consistent with small remote infarcts or brain injury. 3. Nonspecific white matter hyperintensities most likely related to chronic ischemia and/or small vessel disease. 4. No evidence of acute ischemic disease or other acute or significant intracranial abnormality. 5. Prior large right craniotomy. 6. Acute right sphenoid sinusitis 7. Mild bilateral ethmoid and minimal left frontal sinus disease likely chronic. ECHO 09/27; Left Ventricle: Left ventricle size is normal. Normal wall thickness. Mildly reduced left ventricular systolic function. The EF by visual approximation is 45%. Abnormal wall motion. There appears to be global hypokinesis, worse in apical segments. Right Ventricle: Right ventricle size is normal. Normal systolic function. Mitral Valve: Moderate (2+) regurgitation with a posterior directed jet. Left Atrium: Left atrium is severely dilated. LA Vol Index A/L is 50 mL/m2. No significant valvular abnormalities. Technically difficult study. . CXR 09/29: IMPRESSION: Bilateral pleural effusions. No acute process. CXR 09/30: Comparison: Previous day Findings: Cardiac silhouette is enlarged. Support devices are similar. Probable chronic interstitial changes present. Subtle basilar infiltrates not excluded. Follow-up recommended. KUB 09/30: IMPRESSION: Impression: Significant gaseous distention of the bowel, presumed obstruction. Large portion of the dilated bowel loops appear to be colonic and Eli's is a consideration. Follow-up recommended. CT abd/pelvis 09/30: FINDINGS: 1. Dilatation of the colon with distended rectum with stool (possible fecal impaction) with wall thickening of the rectum with what appears to be a small amount of pneumatosis in the anterior rectal wall compatible with proctitis. 2. Small bilateral pleural effusions with adjacent atelectatic changes lower lung smith. 3. Subcutaneous edema both flanks and dependent back, moderate aortoiliac calcific atherosclerosis, NGT/Soliman catheter, mild superior endplate depression T12 with Schmorl's node. KUB 10/01: IMPRESSION: 1. NG tube in place. 2. Moderate dilatation of colon. 3. Significant air-fluid levels or free air cannot be evaluated on this supine-only study. KUB 10/02: IMPRESSION: 1. New OG tube with its tip in the stomach. 2. Stable dilatation of bowel loops. Assessment and Plan: Principal Problem: Seizure (HCC) Active Problems: Acute respiratory failure with hypoxia and hypercapnia (HCC) Assessment: Acute on chronic hypoxic hypercarbic resp failure likely 2/2 vocal cord dysfunction vs stenosis, MSSA PNA, Hx COPD, prior trach/peg (07/27) Breakthrough GTC seizure, hx bi-hemispheric MCA strokes, recent traumatic SDH (08/05/23), prev SDH requiring crani/evac (01/23) Hypotension New HFrEF in setting of prev Takotsubo CM, Hx HTN, HPL Anemia Constipation Hx Crest syndrome Hx prior DVT (07/2022, not on OAC) Hx Crest syndrome Hx anxiety/depression Hx alcohol abuse FEN Debility Full Code Plan: ABG stable on minimal vent settings. Cxr with angely pleural effusions and Net +7.3L --lasix x1 today. Plan for trach/peg today. On ketamine/precedex for sedation, cont nebs, steroids (DC vs change to taper). Last day for cefazolin D#7. Repeat PNA pcr and resp cx from 10/02 NGTD. Consider ENT to eval for VCD vs stenosis as CT chest without severe stage COPD that would cause this level of resp distress. Breakthrough sz 2/2 subtherapeutic dilantin level--Neuro CC has s/o but rec continue keppra 1gm BID(can change to PO after PEG), cont asa, statin. On 2mcg levophed this AM--paused during exam, BP remaining stable. Does not appear toxic. If unable to remain off pressors will check a LA. ECHO as above with EF 45% and unchanged 2+ Mitral insuff. Prev ECHO in care every where with EF 55% with Mitral Dx on 10/09/22. Start low dose BB once off levophed, cont asa/statin, lasix x1 today, can consider HF consult. EKG 10/02 with NSR. Troponins neg on admit. Hgb 6.9 this AM--repeat 7.2. No S&S of overt bleeding, likely component of dilution as Net +7.3L. Defer transfusion for now, transfuse prn <7.0 or if becomes symptomatic Improving after manual disimpaction from surgery on 09/30. Continue bowel regimen for now, repeat KUB in AM. Recent traumatic SDH--to follow outpt with OP NSGY. Crest syndrome stable Anxiety severe, but improving. Continue home Cymbalta, lexapro, gabapentin nightly. On seroquel BID here and prn vistaril Reportedly sober x3 years. No S&S of w/d. Ethanol level neg on admit NPO until after trach, replace electrolytes prn, bowel regimen Pt/Ot Full Code. PC following, seen earlier in stay. Updated daughter Ameena, along with the patient's brother and boyfriend at bedside today GI Prophylaxis: Pantoprazole IV DVT Prophylaxis: Lovenox 40 q 24hr - creatinine clearance >30 Disposition: Remain in ICU Plan discussed with Dr. Villafuerte Critical Care Time: 35mins Total critical care time caring for this patient with life threatening, unstable organ failure, including direct patient contact, management of life support systems, review of data including imaging and labs, discussions with other team members and physicians, excluding procedures. ICU Progress Note Name: Luiza May : 1955(67 y.o.) Date: 10/03/23 Team: MICU Attending: Dr. Aguilar Subjective: Hospital Summary: 67F PMH Chronic resp failure s/p trach 07/2022 (reversed a few months later) current 4L home O2, CPAP QHS, HFpEF w/ takotsubo cardiomyopathy, Fall 01/08/2022 resulting in subdural hematoma requiring R crani/evac, prior DVT (07/2022, not on OAC), HTN/HLD, anxiety/depression, alcohol abuse, seizure disorder (on dilantin). Pt initially admitted to OSH 09/24. Prior to arrival there, was reportedly walking in to the bathroom when she started having tonic-clonic seizure activity lasting ~10 minutes, witnessed by fiance, called EMS and taken to OSH. Noted to have subtherapeutic dilantin level - was given keppra. Cont to have AMS, ABG with hypercarbic, pH 7.14, Co2 137 --> was intubated and transferred to [facility] ICU. 09/27: Extubated overnight. Required re-intubation that afternoon d/t hypoxia/increased WOB after getting up to BSC, desat ~65%, improved with BVM - eyes deviated to R -?seizure. Difficult to ventilate, started on versed gtt with improvement. 09/28: requiring ketamine/versed/precedex and still intermittently agitated. 09/29: only requiring ketamine. Passing SBT. 09/30: Some abd pain/distention. Imaging concerning for stool impaction. Manual disimpacted by surg. 10/01: Extubated to NIV, with some tachycardia, increased WOB which improved with precedex/ativan Recent unwitnessed fall 08/05/2023 resulting in subdural hematoma - admitted to [facility]. [facility]'ED at that time. Has not followed up with NSGY d/t location/distance. Interval Events: Pt increased WOB, tachycardia ~120. Worsening resp acidosis - reintubated this morning. Discussed with patient/daughter prior to intubation will need trach, both agreeable. On precedex/ketamine post intubation Scheduled Meds:aspirin, 81 mg, Oral, Daily atorvastatin, 40 mg, Oral, Nightly bisacodyl, 10 mg, Rectal, Daily budesonide, 0.5 mg, Nebulization, Daily ceFAZolin, 2,000 mg, IntraVENous, q8h DULoxetine, 60 mg, Oral, Daily enoxaparin, 40 mg, SubCUTAneous, Daily escitalopram, 10 mg, Oral, Daily folic acid, 1 mg, Oral, Daily gabapentin, 300 mg, Oral, Nightly ipratropium-albuterol, 3 mL, Nebulization, Q4H levETIRAcetam, 1,000 mg, IntraVENous, BID methylPREDNISolone sod suc (PF), 40 mg, IntraVENous, q24h pantoprazole (ProtoNix) 40 mg in sodium chloride (PF) 0.9 % 10 mL injection, 40 mg, IntraVENous, Nightly polyethylene glycol (PEG) 3350, 17 g, Oral, BID artificial tears, 1 drop, Both Eyes, Daily QUEtiapine, 25 mg, Oral, BID Senna, 10 mL, Oral, BID thiamine (Vitamin B1) 100 mg in sodium chloride 0.9 % 100 mL IVPB, 100 mg, IntraVENous, q24h Continuous Infusions:dexmedeTOMIDine, 0.1-1.5 mcg/kg/hr, Last Rate: 1.5 mcg/kg/hr (10/03/23 1212) ketamine 500 mg in sodium chloride 0.9 % 250 mL infusion, 0.05-2 mg/kg/hr (Ramona), Last Rate: 0.55 mg/kg/hr (10/03/23 1255) norepinephrine, 1-100 mcg/min, Last Rate: 2 mcg/min (10/03/23 1430) Objective: Last Vitals: BP MAP 108/51 (10/03/23 1400) 68 (10/03/23 1400) Arterial BP MAP Temp 37.4 C (99.3 F) (10/03/23 1400) Pulse 81 (10/03/23 1400) Resp 21 (10/03/23 1400) SpO2 99 % (10/03/23 1400) Weight 75.8 kg (167 lb 1.7 oz) (10/03/23 0600) BMI Body mass index is 30.56 kg/m . I/O: 10/01 0700 - 10/02 0659 In: 2640.7 [I.V.:2640.7] Out: 585 [Urine:585] Oxygen Delivery: 4L NC Invasive Lines / Tubes / Drains: CVC Triple Lumen 09/26/23 Non-tunneled Right Internal jugular (Active) Number of days: 1 NG/OG Tube Orogastric Center mouth (Active) Number of days: 1 Urethral Catheter Temperature probe 18 Fr. (Active) Number of days: 1 ETT 7.5 mm (Active) Number of days: 1 Central Line Indication: Vesicant infusions/medications at high risk of causing extravasation Soliman Indications: Hourly I&Os (Critical Care ONLY) Restraints: Not in restraints Wounds: Wound/Incision 09/26/23 Traumatic Lip Left;Upper (Active) Date First Assessed: 09/26/23 Present on Original Admission: Yes Primary Wound Type: Traumatic Location: Lip Wound Location Orientation: Left;Upper Wound/Incision 09/26/23 Pressure Injury Heel Left (Active) Date First Assessed: 09/26/23 Present on Original Admission: Yes Primary Wound Type: Pressure Injury Location: Heel Wound Location Orientation: Left Pressure Injury Stage: Stage 1 Constitutional: General Appearance [x]WDWN []Obese []Cachectic []Thin []Ill Eyes: Inspection of Pupils/Irises Pupils round and react: [x]Yes []No Sclera: []Icteric [x]Non-Icteric Inspection of Conjunctiva/Lids Conjunctiva: []Injected [x]Non-Injected Lids: [x]Intact []Lesion Present ENT/Mouth: External Inspection of ears/nose [x] Normal [] Scar/Lesion/Mass Inspection of teeth/lips/gums Dentition: [x][place] Teeth []Dentures Lips/Gums: [x]Intact []Lesion Present Mucosa: [x]Celada []Moist [x]Dry Neck: External Appearance Overall Appearance: [x]Normal []Lesion/Mass/Crepitus Present Trachea midline: [x]Yes []No Thyroid []Normal []Enlarged []Tender []Mass []Absent Respiratory: Respiratory effort []Labored [x]Non-Labored [x] Mechanically-Ventilated Auscultation []Clear []Crackles [x]Wheezes []Rhonchi Cardiovascular: Auscultation Rate: [x]Regular []Irregular [x]Tachycardia []Bradycardia Rhythm: [x]Regular []Irregular Murmur: []Present [x]Absent Extremities Peripheral Edema: []Present [x]Absent Varicosities: []Present [x]Absent Gastrointestinal: Abdomen Palpation: [x]Soft []Firm []Tender [x]Non-Tender []Distended [x]Non-distended Mass: []Present []Absent Bowel Sounds: []Present []Absent Hernia: []Present []Absent Liver/Spleen: []Hepatosplenomegaly []Organomegaly Absent Musculoskeletal: Inspection of Digits and Nails Cyanosis: []Present [x]Absent Clubbing: []Present [x]Absent Ischemia: []Present [x]Absent Infection: []Present [x]Absent Extremities REGALADO Equally: Except ([]RUE []RLE []LUE []LLE) Strength/Tone: Intact and Normal ([x]RUE [x]RLE [x]LUE [x]LLE) Skin: Inspection [x]Normal []Rash []Lesion []Ulcer Palpation [x]Warm []Cool [x]Dry []Clammy []Nodules []Induration []Skin-tightening Cap-Refill: [x] <3 sec [] >3 seconds (delayed) Neurologic: Intubated, sedated [] Sensation grossly intact Psych: Mental Status Alert: []Yes [] No Oriented: []x0 []X1 []X2 []x3 Mood/Affect []Normal []Flat []Agitated []Depressed []Anxious []Calm [x]Sedated []NAD Select Labs within last 24 hours- BMP: Recent Labs 10/01/2335710/02/2344110/03/23423 NA 143 143 142 K 3.5 3.3* 3.9 CL 105 104 106 CO2 30 30 BUN 14 16 17 CREATININE 0.51* 0.64 0.48* CALCIUM 9.2 9.3 9.1 MG 1.9 2.0 1.9 PHOS 3.0 3.4 3.5 LFTs: Recent Labs 10/01/23357 AST 31 ALT 19 PROT 7.0 ALBUMIN 4.5 BILITOT 0.3 ALKPHOS 78 Glucose: Recent Labs 10/01/2335710/02/2344110/03/23 042 GLUCOSE 149* 104* 109* Procal: Recent Labs 10/02/23441 PROCAL 0.09 CBC: Recent Labs 10/01/2335710/02/2344110/02/23 2105 10/03/23 0424 10/03/23 0937 10/03/23 1107 WBC 7.4 10.8* -- 10.7 -- -- HGB 7.6* 7.7* < > 7.3* 8.3 7.8 HCT 24.7* 25.4* -- 23.7* -- -- PLT 153 178 -- 224 -- -- MCV 92.2 93.0 -- 93.3 -- -- RDW 14.6 14.5 -- 14.3 -- -- < > = values in this interval not displayed. ABGs: Recent Labs 10/02/23 2305 10/03/23 0937 10/03/23 1107 PHART 7.304* 7.203* 7.305* [id number] 57.5* 74.5* 57.0* PO2ART 92.6 88.2 98.9 [id number] 27.9* 28.7* 27.7* [id number] Bi-PAP 40% Oxygen Vent Lactic Acid: No results for input(s): LACTATE in the last 72 hours. INR: No results for input(s): INR in the last 72 hours. Cardiac Injury Profile: No results for input(s): CKTOTAL , CKMB , TROPONINI in the last 72 hours. Labs in Last 3 months: No results found for: TSH , VITD25 , PSA , INR , GLUF Microbiology- Urine Cx: Lab Results Component Value Date URINECX 07/29/2022 Insignificant growth based on current clinical guidelines Blood Cx: Lab Results Component Value Date BLOODCX No growth at 5 days 09/27/2023 Sputum Cx: Lab Results Component Value Date RESPCULT Culture in progress 10/03/2023 Gram Stain: Lab Results Component Value Date LABGRAM 10/03/2023 Few Polymorphonuclear leukocytes per low power field LABGRAM Rare Epithelial cells per low power field 10/03/2023 LABGRAM No organisms seen 10/03/2023 PNA PCR: Lab Results Component Value Date HUMANMETAPNE Not Detected 09/27/2023 COVID19: No results found for: COVID19 Legionella Ag: Lab Results Component Value Date LEGIONELLAPN Not Detected 09/27/2023 Strep Ag: No results for input(s): STREPPNEUMO in the last 72 hours. Imaging- 09/27 MRI brain MRI Brain 09/27/23: IMPRESSION: 1. Areas of encephalomalacia in the right occipital and high left posterior parietal lobes with peripheral hemosiderin deposition consistent with remote infarcts or brain injury with prior peripheral hemorrhage. 2. Small area of encephalomalacia in the high right frontoparietal cortex and questionably the posterior aspect of the right hemisphere without hemosiderin deposition consistent with small remote infarcts or brain injury. 3. Nonspecific white matter hyperintensities most likely related to chronic ischemia and/or small vessel disease. 4. No evidence of acute ischemic disease or other acute or significant intracranial abnormality. 5. Prior large right craniotomy. 6. Acute right sphenoid sinusitis 7. Mild bilateral ethmoid and minimal left frontal sinus disease likely chronic. 09/26 CTA chest IMPRESSION: Minimal bilateral pleural effusions and adjacent slight infiltrate or atelectasis. 09/27 tte Left Ventricle: Left ventricle size is normal. Normal wall thickness. Mildly reduced left ventricular systolic function. The EF by visual approximation is 45%. Abnormal wall motion. There appears to be global hypokinesis, worse in apical segments. Right Ventricle: Right ventricle size is normal. Normal systolic function. Mitral Valve: Moderate (2+) regurgitation with a posterior directed jet. Left Atrium: Left atrium is severely dilated. LA Vol Index A/L is 50 mL/m2. No significant valvular abnormalities. Technically difficult study. Assessment and Plan: Acute on chronic hypoxic/hypercarbic resp failure +MSSA pna, likely aspiration COPD Hx prior trach/peg (07/2022, reversed shortly after per family) -Initial intubation for 2 days, extubated and required intubation again 09/27 after around 12 hours of being extubated d/t increased WOB/hypoxia into 60s after getting up to BSC, extubated yesterday. Required re-intubation this morning for anxiety/increased WOB and worsening hypercarbia. Recheck PNA PCR/Resp culture. Solumedrol 40mg daily - consider weaning tomorrow. Nebs. Will need trach placed, surgery already consulted. After trach placement, will need eventual ENT consult to r/o any VCD or stenosis as CT chest doesn't show COPD at a stage that should cause this level of distress - pt was not stable enough for this from extubation to re-intubation time. Initial plan was for abx to end today, however will keep on until pna pcr/resp culture results. Abd distention, improving Constipation -KUB improving. Disimpacted by surgery 09/30. KUB improving. No abd pain. Having bowel movements. Surgery following. Increased bowel regimen. Seizures (known history CHRO) -?seizure activity prior to re-intubation, was hypercarbic - deviated to the R, minimally responsive. Venkata Dc'ed, started on keppra on admission - will cont keppra outpatient if tolerates, hope with decreased dosing will increase compliance. NeuroCC signed off. -per family 1st seizure in 07/2022 and has not had recurrence since. Was told likely r/t hypercarbia. Normocytic anemia -hgb 7.3, down a little from yesterday. No signs of bleeding. Hx bilateral ischemic stroke (?[id number]) Hx recent subdural after fall (08/2023) Hx subdural s/p crani/evac (01/2022) Hx Crest syndrome (thought to be cause of prior stroke) -ok for asa/dvt prophy per neuroCC -MRI as above with remote bilateral infarcts -will need to follow up with neurology outpatient, possible event monitor -echo as above - follow up with cards outpatient. Anxiety RLS -Restarted home meds: duloxetine 60mg daily, lexapro 10mg. At recent visit prescribed gabapentin 300mg nightly, has not started taking yet - will order here. Also ordered PRN vistaril - 50mg Q6H PRN. Pt seems to have responded best to seroquel - was getting 25mg BID, will add in additional 25mg at night. Will need to follow up with psychiatry Prior alcohol abuse -sober for at least 2-3 years per family. Ethanol and ethyl gluc negative. Folic acid, thiamine. GOC: Full code. Palliative following. GI Prophylaxis: Pantoprazole IV DVT Prophylaxis: Lovenox 40 q 24hr - creatinine clearance >30 Disposition: Remain in ICU Status Critical Care Time: 35 minutes Total critical care time caring for this patient with life threatening, unstable organ failure, including direct patient contact, management of life support systems, review of data including imaging and labs, discussions with other team members and physicians, excluding procedures. ICU Progress Note Name: Luiza May : 1955(67 y.o.) Date: 10/02/23 Team: MICU Attending: Dr. Aguilar Subjective: Hospital Summary: 67F PMH Chronic resp failure s/p trach 07/2022 (reversed a few months later) current 4L home O2, CPAP QHS, HFpEF w/ takotsubo cardiomyopathy, Fall 01/08/2022 resulting in subdural hematoma requiring R crani/evac, prior DVT (07/2022, not on OAC), HTN/HLD, anxiety/depression, alcohol abuse, seizure disorder (on dilantin). Pt initially admitted to OSH 09/24. Prior to arrival there, was reportedly walking in to the bathroom when she started having tonic-clonic seizure activity lasting ~10 minutes, witnessed by bertha, called EMS and taken to OSH. Noted to have subtherapeutic dilantin level - was given keppra. Cont to have AMS, ABG with hypercarbic, pH 7.14, Co2 137 --> was intubated and transferred to [facility] ICU. 09/27: Extubated overnight. Required re-intubation that afternoon d/t hypoxia/increased WOB after getting up to BSC, desat ~65%, improved with BVM - eyes deviated to R -?seizure. Difficult to ventilate, started on versed gtt with improvement. 09/28: requiring ketamine/versed/precedex and still intermittently agitated. 09/29: only requiring ketamine. Passing SBT. 09/30: Some abd pain/distention. Imaging concerning for stool impaction. Manual disimpacted by surg. Recent unwitnessed fall 08/05/2023 resulting in subdural hematoma - admitted to [facility]. [facility]ED at that time. Has not followed up with NSGY d/t location/distance. Interval Events: Pt remains intubated this morning. Some hypotension this morning, a little more lethargic. Briefly back on levophed. Given some IVF with improvement in mentation/BP. Passing SBT. Denies pain. Denies SOB. Abd less distended today. Having bowel movements. Answering yes/no questions appropriately. On 0.2mcg/kg/hr precedex. Scheduled Meds:aspirin, 81 mg, Oral, Daily atorvastatin, 40 mg, Oral, Nightly bisacodyl, 10 mg, Rectal, Daily budesonide, 0.5 mg, Nebulization, Daily ceFAZolin, 2,000 mg, IntraVENous, q8h DULoxetine, 60 mg, Oral, Daily enoxaparin, 40 mg, SubCUTAneous, Daily escitalopram, 10 mg, Oral, Daily folic acid, 1 mg, Oral, Daily gabapentin, 300 mg, Oral, Nightly ipratropium-albuterol, 3 mL, Nebulization, Q4H levETIRAcetam, 1,000 mg, IntraVENous, BID methylPREDNISolone sod suc (PF), 60 mg, IntraVENous, q24h pantoprazole (ProtoNix) 40 mg in sodium chloride (PF) 0.9 % 10 mL injection, 40 mg, IntraVENous, Nightly polyethylene glycol (PEG) 3350, 17 g, Oral, BID artificial tears, 1 drop, Both Eyes, Daily QUEtiapine, 25 mg, Oral, BID Senna, 10 mL, Oral, BID thiamine (Vitamin B1) 100 mg in sodium chloride 0.9 % 100 mL IVPB, 100 mg, IntraVENous, q24h Continuous Infusions:dexmedeTOMIDine, 0.1-1.5 mcg/kg/hr, Last Rate: 0.2 mcg/kg/hr (10/02/23 1209) norepinephrine, 1-100 mcg/min, Last Rate: 1 mcg/min (10/02/23 1230) Objective: Last Vitals: BP MAP 122/60 (10/02/23 1330) 78 (10/02/23 1330) Arterial BP MAP Temp 37.3 C (99.1 F) (10/02/23 1330) Pulse 97 (10/02/23 1330) Resp 18 (10/02/23 1330) SpO2 96 % (10/02/23 1330) Weight 74.4 kg (164 lb 0.4 oz) (10/02/23 0600) BMI Body mass index is 29.99 kg/m . I/O: 09/30 0700 - 10/01 0659 In: 696 [I.V.:595] Out: 820 [Urine:820] Oxygen Delivery: 4L NC Invasive Lines / Tubes / Drains: CVC Triple Lumen 09/26/23 Non-tunneled Right Internal jugular (Active) Number of days: 1 NG/OG Tube Orogastric Center mouth (Active) Number of days: 1 Urethral Catheter Temperature probe 18 Fr. (Active) Number of days: 1 ETT 7.5 mm (Active) Number of days: 1 Central Line Indication: Vesicant infusions/medications at high risk of causing extravasation Soliman Indications: Hourly I&Os (Critical Care ONLY) Restraints: Not in restraints Wounds: Wound/Incision 09/26/23 Traumatic Lip Left;Upper (Active) Date First Assessed: 09/26/23 Present on Original Admission: Yes Primary Wound Type: Traumatic Location: Lip Wound Location Orientation: Left;Upper Wound/Incision 09/26/23 Pressure Injury Heel Left (Active) Date First Assessed: 09/26/23 Present on Original Admission: Yes Primary Wound Type: Pressure Injury Location: Heel Wound Location Orientation: Left Pressure Injury Stage: Stage 1 Constitutional: General Appearance [x]WDWN []Obese []Cachectic []Thin []Ill Eyes: Inspection of Pupils/Irises Pupils round and react: [x]Yes []No Sclera: []Icteric [x]Non-Icteric Inspection of Conjunctiva/Lids Conjunctiva: []Injected [x]Non-Injected Lids: [x]Intact []Lesion Present ENT/Mouth: External Inspection of ears/nose [x] Normal [] Scar/Lesion/Mass Inspection of teeth/lips/gums Dentition: [x][place] Teeth []Dentures Lips/Gums: [x]Intact []Lesion Present Mucosa: [x][place] []Moist [x]Dry Neck: External Appearance Overall Appearance: [x]Normal []Lesion/Mass/Crepitus Present Trachea midline: [x]Yes []No Thyroid []Normal []Enlarged []Tender []Mass []Absent Respiratory: Respiratory effort []Labored [x]Non-Labored [x] Mechanically-Ventilated Auscultation []Clear []Crackles [x]Wheezes []Rhonchi Cardiovascular: Auscultation Rate: [x]Regular []Irregular [x]Tachycardia []Bradycardia Rhythm: [x]Regular []Irregular Murmur: []Present [x]Absent Extremities Peripheral Edema: []Present [x]Absent Varicosities: []Present [x]Absent Gastrointestinal: Abdomen Palpation: [x]Soft []Firm []Tender [x]Non-Tender []Distended [x]Non-distended Mass: []Present []Absent Bowel Sounds: []Present []Absent Hernia: []Present []Absent Liver/Spleen: []Hepatosplenomegaly []Organomegaly Absent Musculoskeletal: Inspection of Digits and Nails Cyanosis: []Present [x]Absent Clubbing: []Present [x]Absent Ischemia: []Present [x]Absent Infection: []Present [x]Absent Extremities REGALADO Equally: Except ([]RUE []RLE []LUE []LLE) Strength/Tone: Intact and Normal ([x]RUE [x]RLE [x]LUE [x]LLE) Skin: Inspection [x]Normal []Rash []Lesion []Ulcer Palpation [x]Warm []Cool [x]Dry []Clammy []Nodules []Induration []Skin-tightening Cap-Refill: [x] <3 sec [] >3 seconds (delayed) Neurologic: GCS EYE: 4 - Opens spontaneously GCS MOTOR: 6 - Obeys commands for movement GCS Verbal: 1 - intubated Total GCS: 11 [x] Sensation grossly intact Psych: Mental Status Alert: [x]Yes [] No Oriented: []x0 []X1 []X2 []x3 Mood/Affect []Normal []Flat []Agitated []Depressed [x]Anxious []Calm []Sedated []NAD [facility] within last 24 hours- BMP: Recent Labs 09/30/2324610/01/2335710/02/23441 NA 142 143 143 K 3.1* 3.5 3.3* CL 100 105 104 CO2 30 30 29 BUN 13 14 16 CREATININE 0.55 0.51* 0.64 CALCIUM 9.4 9.2 9.3 MG 2.0 1.9 2.0 PHOS 1.5* 3.0 3.4 LFTs: Recent Labs 10/01/23357 AST 31 ALT 19 PROT 7.0 ALBUMIN 4.5 BILITOT 0.3 ALKPHOS 78 Glucose: Recent Labs 09/30/2324610/01/23 03510/02/23 044 GLUCOSE 169* 149* 104* Procal: Recent Labs 09/30/2324609/30/23 0725 10/02/23 044 PROCAL 0.08 0.08 0.09 CBC: Recent Labs 09/30/2324609/30/23 0311 10/01/23 03510/02/23 044 WBC 11.4* -- 7.4 10.8* HGB 7.9* 8.7 7.6* 7.7* HCT 24.9* -- 24.7* 25.4* PLT 146 -- 153 178 MCV 90.2 -- 92.2 93.0 RDW 13.8 -- 14.6 14.5 ABGs: Recent Labs 09/30/23 0311 [id number] Vent Lactic Acid: Recent Labs 09/30/23 0247 LACTATE 0.8 INR: No results for input(s): INR in the last 72 hours. Cardiac Injury Profile: No results for input(s): CKTOTAL , CKMB , TROPONINI in the last 72 hours. Labs in Last 3 months: No results found for: TSH , VITD25 , PSA , INR , GLUF Microbiology- Urine Cx: Lab Results Component Value Date URINECX 07/29/2022 Insignificant growth based on current clinical guidelines Blood Cx: Lab Results Component Value Date BLOODCX No growth at 5 days 09/27/2023 Sputum Cx: Lab Results Component Value Date RESPCULT Few respiratory ailyn present. 09/27/2023 Gram Stain: Lab Results Component Value Date LABGRAM (A) 09/27/2023 Many Polymorphonuclear leukocytes per low power field LABGRAM Rare Epithelial cells per low power field (A) 09/27/2023 LABGRAM Moderate Gram positive bacilli (A) 09/27/2023 LABGRAM Few Gram positive cocci (A) 09/27/2023 PNA PCR: Lab Results Component Value Date HUMANMETAPNE Not Detected 09/27/2023 COVID19: No results found for: COVID19 Legionella Ag: Lab Results Component Value Date LEGIONELLAPN Not Detected 09/27/2023 Strep Ag: No results for input(s): STREPPNEUMO in the last 72 hours. Imaging- 09/27 MRI brain MRI Brain 09/27/23: IMPRESSION: 1. Areas of encephalomalacia in the right occipital and high left posterior parietal lobes with peripheral hemosiderin deposition consistent with remote infarcts or brain injury with prior peripheral hemorrhage. 2. Small area of encephalomalacia in the high right frontoparietal cortex and questionably the posterior aspect of the right hemisphere without hemosiderin deposition consistent with small remote infarcts or brain injury. 3. Nonspecific white matter hyperintensities most likely related to chronic ischemia and/or small vessel disease. 4. No evidence of acute ischemic disease or other acute or significant intracranial abnormality. 5. Prior large right craniotomy. 6. Acute right sphenoid sinusitis 7. Mild bilateral ethmoid and minimal left frontal sinus disease likely chronic. 09/26 CTA chest IMPRESSION: Minimal bilateral pleural effusions and adjacent slight infiltrate or atelectasis. 09/27 tte Left Ventricle: Left ventricle size is normal. Normal wall thickness. Mildly reduced left ventricular systolic function. The EF by visual approximation is 45%. Abnormal wall motion. There appears to be global hypokinesis, worse in apical segments. Right Ventricle: Right ventricle size is normal. Normal systolic function. Mitral Valve: Moderate (2+) regurgitation with a posterior directed jet. Left Atrium: Left atrium is severely dilated. LA Vol Index A/L is 50 mL/m2. No significant valvular abnormalities. Technically difficult study. Assessment and Plan: Acute on chronic hypoxic/hypercarbic resp failure ?bilateral infiltrate - likely aspiration in setting of seizures vs HAP COPD Hx prior trach/peg (07/2022, reversed shortly after per family) -Initial intubation for 2 days, extubated and required intubation again 09/27 after around 12 hours of being extubated d/t increased WOB/hypoxia into 60s after getting up to BSC. Solumedrol decreased 40mg daily. Nebs. Needs bipap when extubated. On low dose precedex, less anxious today. Possible extubation later today if having bowel movements. Abd distention Constipation -KUB with enlarged bowel yesterday, disimpacted by surgery. KUB improving. No abd pain. Having bowel movements. Surgery following. Increased bowel regimen. Seizures (known history CHRO) -?seizure activity prior to re-intubation, was hypercarbic - deviated to the R, minimally responsive. Dilantin Dc'ed, started on keppra on admission - will cont keppra outpatient if tolerates, hope with decreased dosing will increase compliance. NeuroCC signed off. -per family 1st seizure in 07/2022 and has not had recurrence since. Was told likely r/t hypercarbia. Normocytic anemia Thrombocytopenia -hgb 7.7, stable. Plt 153 improving. No signs of bleeding. Likely dilutional / mixed with sepsis. 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 Anxiety RLS -Restarted home meds: duloxetine 60mg daily, lexapro 10mg. At recent visit prescribed gabapentin 300mg nightly, has not started taking yet - will order here. Also ordered PRN vistaril - 50mg Q6H PRN. Pt seems to have responded best to seroquel. Prior alcohol abuse -sober for at least 2-3 years per family. Ethanol and ethyl gluc negative. Folic acid, thiamine. GOC: Full code. Palliative following. GI Prophylaxis: Pantoprazole IV DVT Prophylaxis: Lovenox 40 q 24hr - creatinine clearance >30 Disposition: Remain in ICU Status Critical Care Time: 35 minutes Total critical care time caring for this patient with life threatening, unstable organ failure, including direct patient contact, management of life support systems, review of data including imaging and labs, discussions with other team members and physicians, excluding procedures. 10/02/23 1223 Patient Parameters Ventilator On Yes Vent ID [id number] Patient position Semi fowlers (30-45 ) Heart Rate 97 Resp 19 SpO2 99 % ETT 7.5 mm Placement Date: 09/26/23 ETT Type: ETT - single Single Lumen Tube Size: 7.5 mm Cuffed: Yes Location: Oral Secured at (cm) 23 cm Measured from Lips Secured Location Right Secured by Commercial tube munguia Cuff Pressure (cm H2O) (mov) Airway Interventions Safety Equipment at Bedside Bag Valve Mask;Suction Settings Humidification Heater Heater Temperature 37 C (98.6 F) Vent Mode A/C Mandatory Type VC+ Resp Rate (Set) 18 Vt (Set, mL) 330 mL PEEP/CPAP (cm H2O) 8 cm H20 Sensitivity 2 Inspiratory Time (sec) 0.9 sec Rise Time (%) 70 % Readings PIP Observed (cm H2O) 35 cm H2O MAP (cm H2O) 15 Resp Rate Observed 20 Vt (observed, mL) 345 mL Minute Ventilation (L/min) 6.23 L/min I:E Ratio 1:2.6 Plateau Pressure (cm H2O) 37 cm H2O Dynamic Compliance (L/cm H2O) 16 L/cm H2O Static Compliance (L/cm H2O) 20 Airway Resistance 18 Total PEEP (cm H2O) 1.3 cm H2O Alarms High RR Alarm 40 breaths per minute Insp Pressure High (cm H2O) 45 cm H2O Insp Pressure Low (cm H2O) 11.5 cm H2O MV High (L/min) 20 L/min MV Low (L/min) 2 L/min Vt High (marcellus) (mL) 1000 mL Vt Low (marcellus) (mL) 200 mL Vt High (spont) (mL) 1000 mL Vt Low (spont) (mL) 200 mL High VTi 1000 Apnea Interval (sec) 20 seconds Spontaneous Breathing Trial Weaning Start Time 1220 Weaning Tidal Volume 177 mL Weaning Respiratory Rate 25 Total RSBI 141 Weaning Tolerance Poor Spontaneous Breathing Trial (SBT) Outcome RSBI>105 - SBT failure (on PS 02/09) Images from the original note were not included. Department of General Surgery Daily Progress Note ADMIT DATE: 09/26/2023 TODAY'S DATE: 10/02/2023 SUBJECTIVE: No acute events overnight. Remains intubated. No nausea/vomiting. Good bowel movements. OBJECTIVE: VITALS: BP 118/58 Pulse 97 Temp 37.3 C (99.1 F) Resp 24 Ht 5' 2.01 (1.575 m) Wt 164 lb 0.4 oz (74.4 kg) SpO2 97% PF 48 L/min BMI 29.99 kg/m INTAKE/OUTPUT: I/O last 3 completed shifts: In: 1766 (23.7 mL/kg) [I.V.:1149 (15.4 mL/kg); NG/GT:617] Out: 1245 (16.7 mL/kg) [Urine:1245 (0.5 mL/kg/hr)] Weight: 74.4 kg I/O this shift: In: 666 [I.V.:666] Out: 75 [Urine:75] PHYSICAL EXAM: CONSTITUTIONAL: awake, alert, cooperative, no apparent distress NECK: Supple, symmetrical, trachea midline, no adenopathy LUNGS: Intubated, MV CARDIOVASCULAR: Regular rate and rhythm ABDOMEN: Soft, moderately distended, non-tender to palpation. CHEST: no masses palpated, no axillary or supraclavicular adenopathy RECTUM: solid and liquid stool evacuated for rectal vault. No masses palpated. Disimpacted moderate amount of stool. Noted mild anal stenosis. MUSCULOSKELETAL: There is no redness, warmth, or swelling of the joints. NEUROLOGIC: Awake, alert, oriented to name, place and time. SKIN: normal skin color, texture, no redness, warmth, or swelling LABS Results from last 7 days Lab Units 10/02/2344110/01/2335709/30/23 0311 09/30/23 0247 WBC AUTO 10*3/uL 10.8* 7.4 -- 11.4* HEMOGLOBIN g/dL 7.7* 7.6* -- 7.9* HEMOGLOBIN BG g/dl -- -- 8.7 -- HEMATOCRIT % 25.4* 24.7* -- 24.9* PLATELETS AUTO 10*3/uL 178 153 -- 146 Results from last 7 days Lab Units 10/02/2344110/01/2335709/30/23 0247 SODIUM mmol/L 143 143 142 POTASSIUM mmol/L 3.3* 3.5 3.1* CHLORIDE mmol/L 104 105 100 CO2 mmol/L 29 30 30 BUN mg/dL 16 14 13 CREATININE mg/dL 0.64 0.51* 0.55 GLUCOSE mg/dL 104* 149* 169* CALCIUM mg/dL 9.3 9.2 9.4 Results from last 7 days Lab Units 10/01/23 0358 09/28/23 0639 09/27/23 0516 ALK PHOS U/L 78 101 150* BILIRUBIN TOTAL mg/dL 0.3 0.6 0.3 BILIRUBIN DIRECT mg/dL 0.0 0.0 0.0 PROTEIN TOTAL g/dL 7.0 6.0* 5.7* ALT U/L 19 62* 100* AST U/L 31 47* 126* No results found for: LIPASE Results from last 7 days Lab Units 10/02/23441 09/29/24 0358 09/30/23 0247 MAGNESIUM mg/dL 2.0 1.9 2.0 Current Inpatient Medications Scheduled Meds:aspirin, 81 mg, Oral, Daily atorvastatin, 40 mg, Oral, Nightly bisacodyl, 10 mg, Rectal, Daily budesonide, 0.5 mg, Nebulization, Daily ceFAZolin, 2,000 mg, IntraVENous, q8h DULoxetine, 60 mg, Oral, Daily enoxaparin, 40 mg, SubCUTAneous, Daily escitalopram, 10 mg, Oral, Daily folic acid, 1 mg, Oral, Daily gabapentin, 300 mg, Oral, Nightly ipratropium-albuterol, 3 mL, Nebulization, Q4H levETIRAcetam, 1,000 mg, IntraVENous, BID methylPREDNISolone sod suc (PF), 60 mg, IntraVENous, q24h pantoprazole (ProtoNix) 40 mg in sodium chloride (PF) 0.9 % 10 mL injection, 40 mg, IntraVENous, Nightly polyethylene glycol (PEG) 3350, 17 g, Oral, BID artificial tears, 1 drop, Both Eyes, Daily QUEtiapine, 25 mg, Oral, BID Senna, 10 mL, Oral, BID thiamine (Vitamin B1) 100 mg in sodium chloride 0.9 % 100 mL IVPB, 100 mg, IntraVENous, q24h Continuous Infusions:dexmedeTOMIDine, 0.1-1.5 mcg/kg/hr, Last Rate: 0.4 mcg/kg/hr (10/02/23 0648) norepinephrine, 1-100 mcg/min, Last Rate: 3 mcg/min (10/02/23 0945) PRN Meds:PRN medications: acetaminophen, hydrOXYzine pamoate, naloxone, ondansetron ODT OR ondansetron, Propylene Glycol-Glycerin, sodium chloride ASSESSMENT AND PLAN: This is a 67 yo female with colonic distention and heavy rectal stool burden - Ok for tube feeds and extubation - Continue multimodal bowel regimen - Daily KUB - Surgery to follow Alida Romano DO General Surgery PGY-5 10/02/23 10:23 AM Pager # [phone] Associated attestation - Malvin Bojorquez MD - 10/02/2023 4:00 PM EDT ATTENDING ADDENDUM Active Diagnoses/Problems this Admission: Patient Active Problem List Diagnosis Alcohol abuse Cerebrovascular accident (CVA) due to embolism of cerebral artery (HCC) NSTEMI (non-ST elevated myocardial infarction) (CMS/HCC) (HCC) History of hematemesis Hemorrhage of gastrointestinal tract Acute deep vein thrombosis (DVT) of distal vein of right lower extremity (HCC) Encephalopathy Posterior reversible encephalopathy syndrome (PRES) COPD exacerbation (HCC) Severe malnutrition (CMS/HCC) (HCC) Seizure (HCC) I personally supervised the resident physician in the evaluation and development of a treatment plan for this patient on the same day of service as above. I personally discussed the review of systems and interviewed the patient along with performing a physical examination. I reviewed the recent events, imaging, labs, vital signs. In addition, I discussed the patient's condition and treatment options with him/her when possible. I have also reviewed and agree with the past medical, family, and social history unless otherwise noted. All of the patient's questions were answered and family updated when appropriate and possible. A complete review of systems was obtained and is negative except as stated in HPI and/or Subjective Section. CHIEF COMPLAINT: abdominal distention PLAN: - as per Dr. Romano's note - I evaluated pt on 10/02/23 - surgery consulted last night for possible colon obstruction due to impacted rectal stool burden - now s/p manual disimpaction with several BM overnight - abdomen soft, still moderately distended but non-tender - ok for tube feeds - cont aggressive bowel regimen, daily suppositories - will continue to monitor Level of Medical Decision Making: []High [x]Moderate []Low Complexity: Acute illness with systemic symptoms (MOD) Risk: Prescription drug management (MOD) Personally Reviewed/Independently interpreted patient's: [x]Epic notes [x]Radiology studies [x]Labs []EKG []Ordering tests []Other Discussed/ With: [x]Patient/Family [x]RN []Consultants [x]Primary []SW/TCC []Other I spent total time of 35 minutes reviewing previous notes, test results, and face to face with Luiza May discussing the diagnosis and importance of compliance with the treatment plan as well as documenting on the day of the visit. Time was spent, Reviewing medical record including recent tests and results Ordering prescription medications/tests and procedures Communicating results to the patient/family/caregiver Counseling/educating the patient/family/caregiver Documenting clinical information the patient's electronic record Coordination of care for the patient Performing a medical appropriate exam and evaluation Malvin Bojorquez MD Trauma, Surgical Critical Care, & General Surgery Division of Trauma Department of Surgery [facility] 10/02/23 0831 Patient Parameters Ventilator On Yes Vent ID [id number] Patient position Semi fowlers (30-45 ) Heart Rate 96 Resp 21 SpO2 98 % Respiratory Interventions Respiratory Interventions Performed Airway suction Suctioning/Secretions Secretion Amount None Suction Device Inline catheter Suctioning Adverse Effects None Suction Type Endotracheal Suction Tolerance Tolerated well Suction Cath Size (Fr) Fr 14 Airway Interventions Safety Equipment at Bedside Bag Valve Mask;Suction Settings Humidification Heater Heater Temperature 37 C (98.6 F) Vent Mode A/C Mandatory Type VC+ Resp Rate (Set) 18 Vt (Set, mL) 330 mL FiO2 (%) 40 % PEEP/CPAP (cm H2O) 8 cm H20 Sensitivity 3 Inspiratory Time (sec) 0.9 sec Rise Time (%) 70 % Readings PIP Observed (cm H2O) 38 cm H2O MAP (cm H2O) 28 Resp Rate Observed 54 Vt (observed, mL) 0 mL Minute Ventilation (L/min) 0 L/min I:E Ratio 4.35:1 Plateau Pressure (cm H2O) 37 cm H2O Dynamic Compliance (L/cm H2O) 19 L/cm H2O Static Compliance (L/cm H2O) 20 Airway Resistance 37 Total PEEP (cm H2O) 1.3 cm H2O Alarms High RR Alarm 40 breaths per minute Insp Pressure High (cm H2O) 45 cm H2O Insp Pressure Low (cm H2O) 11.5 cm H2O MV High (L/min) 20 L/min MV Low (L/min) 2 L/min Vt High (marcellus) (mL) 1000 mL Vt Low (marcellus) (mL) 200 mL Vt High (spont) (mL) 1000 mL Vt Low (spont) (mL) 200 mL High VTi 1000 Apnea Interval (sec) 20 seconds Spontaneous Breathing Trial Spontaneous Breathing Trial (SBT) Outcome (held for now) ICU Progress Note Name: Luiza May : 1955(67 y.o.) Date: 10/01/23 Team: MICU Attending: Dr. Aguilar Subjective: Hospital Summary: 67F PMH Chronic resp failure s/p trach 07/2022 (reversed a few months later) current 4L home O2, CPAP QHS, HFpEF w/ takotsubo cardiomyopathy, Fall 01/08/2022 resulting in subdural hematoma requiring R crani/evac, prior DVT (07/2022, not on OAC), HTN/HLD, anxiety/depression, alcohol abuse, seizure disorder (on dilantin). Pt initially admitted to OSH 09/24. Prior to arrival there, was reportedly walking in to the bathroom when she started having tonic-clonic seizure activity lasting ~10 minutes, witnessed by fiance, called EMS and taken to OSH. Noted to have subtherapeutic dilantin level - was given keppra. Cont to have AMS, ABG with hypercarbic, pH 7.14, Co2 137 --> was intubated and transferred to [facility] ICU. 09/27: Extubated overnight. Required re-intubation that afternoon d/t hypoxia/increased WOB after getting up to BSC, desat ~65%, improved with BVM - eyes deviated to R -?seizure. Difficult to ventilate, started on versed gtt with improvement. 09/28: requiring ketamine/versed/precedex and still intermittently agitated. 09/29: only requiring ketamine. Passing SBT. Recent unwitnessed fall 08/05/2023 resulting in subdural hematoma - admitted to [facility]. Aspirin IA'ED at that time. Has not followed up with NSGY d/t location/distance. Interval Events: Pt remains intubated this morning. Initial plan was for possible extubation but on exam noted to have distended abd, pt mouthing I need to poop. Some pain with palpation. KUB showing enlarged bowel. Surgery consulted. Denies SOB. States she is feeling a little anxious. Scheduled Meds:aspirin, 81 mg, Oral, Daily atorvastatin, 40 mg, Oral, Nightly budesonide, 0.5 mg, Nebulization, Daily ceFAZolin, 2,000 mg, IntraVENous, q8h DULoxetine, 60 mg, Oral, Daily enoxaparin, 40 mg, SubCUTAneous, Daily escitalopram, 10 mg, Oral, Daily folic acid, 1 mg, Oral, Daily gabapentin, 300 mg, Oral, Nightly ipratropium-albuterol, 3 mL, Nebulization, Q4H levETIRAcetam, 1,000 mg, IntraVENous, BID methylPREDNISolone sod suc (PF), 60 mg, IntraVENous, q12h pantoprazole (ProtoNix) 40 mg in sodium chloride (PF) 0.9 % 10 mL injection, 40 mg, IntraVENous, Nightly polyethylene glycol (PEG) 3350, 17 g, Oral, Daily artificial tears, 1 drop, Both Eyes, Daily QUEtiapine, 25 mg, Oral, BID Senna, 10 mL, Oral, BID thiamine (Vitamin B1) 100 mg in sodium chloride 0.9 % 100 mL IVPB, 100 mg, IntraVENous, q24h Continuous Infusions:dexmedeTOMIDine, 0.1-1.5 mcg/kg/hr ketamine 500 mg in sodium chloride 0.9 % 250 mL infusion, 0.05-2 mg/kg/hr (Ramona), Last Rate: 0.8 mg/kg/hr (10/01/23 0119) norepinephrine, 1-100 mcg/min, Last Rate: Stopped (09/30/23 1215) Objective: Last Vitals: BP MAP 132/71 (10/01/23 1500) 90 (10/01/23 1500) Arterial BP MAP Temp 37.7 C (99.9 F) (10/01/23 1500) Pulse 110 (10/01/23 1500) Resp 19 (10/01/23 1500) SpO2 95 % (10/01/23 1500) Weight 72.1 kg (158 lb 15.2 oz) (10/01/23 0630) BMI Body mass index is 29.07 kg/m . I/O: 09/29 0700 - 09/30 0659 In: 3050.7 [I.V.:1812.7] Out: 1050 [Urine:1050] Oxygen Delivery: 4L NC Invasive Lines / Tubes / Drains: CVC Triple Lumen 09/26/23 Non-tunneled Right Internal jugular (Active) Number of days: 1 NG/OG Tube Orogastric Center mouth (Active) Number of days: 1 Urethral Catheter Temperature probe 18 Fr. (Active) Number of days: 1 ETT 7.5 mm (Active) Number of days: 1 Central Line Indication: Vesicant infusions/medications at high risk of causing extravasation Soliman Indications: Hourly I&Os (Critical Care ONLY) Restraints: Not in restraints Wounds: Wound/Incision 09/26/23 Traumatic Lip Left;Upper (Active) Date First Assessed: 09/26/23 Present on Original Admission: Yes Primary Wound Type: Traumatic Location: Lip Wound Location Orientation: Left;Upper Wound/Incision 09/26/23 Pressure Injury Heel Left (Active) Date First Assessed: 09/26/23 Present on Original Admission: Yes Primary Wound Type: Pressure Injury Location: Heel Wound Location Orientation: Left Pressure Injury Stage: Stage 1 Constitutional: General Appearance [x]WDWN []Obese []Cachectic []Thin []IllMy Note Progress Notes Critical Care 09/29/2023 06:44 AM Eyes: Inspection of Pupils/Irises Pupils round and react: [x]Yes []No Sclera: []Icteric [x]Non-Icteric Inspection of Conjunctiva/Lids Conjunctiva: []Injected [x]Non-Injected Lids: [x]Intact []Lesion Present ENT/Mouth: External Inspection of ears/nose [x] Normal [] Scar/Lesion/Mass Inspection of teeth/lips/gums Dentition: [x][place] Teeth []Dentures Lips/Gums: [x]Intact []Lesion Present Mucosa: [x][place] []Moist [x]Dry Neck: External Appearance Overall Appearance: [x]Normal []Lesion/Mass/Crepitus Present Trachea midline: [x]Yes []No Thyroid []Normal []Enlarged []Tender []Mass []Absent Respiratory: Respiratory effort []Labored [x]Non-Labored [x] Mechanically-Ventilated Auscultation []Clear []Crackles [x]Wheezes []Rhonchi Cardiovascular: Auscultation Rate: [x]Regular []Irregular [x]Tachycardia []Bradycardia Rhythm: [x]Regular []Irregular Murmur: []Present [x]Absent Extremities Peripheral Edema: []Present [x]Absent Varicosities: []Present [x]Absent Gastrointestinal: Abdomen Palpation: [x]Soft []Firm []Tender [x]Non-Tender []Distended [x]Non-distended Mass: []Present []Absent Bowel Sounds: []Present []Absent Hernia: []Present []Absent Liver/Spleen: []Hepatosplenomegaly []Organomegaly Absent Musculoskeletal: Inspection of Digits and Nails Cyanosis: []Present [x]Absent Clubbing: []Present [x]Absent Ischemia: []Present [x]Absent Infection: []Present [x]Absent Extremities REGALADO Equally: Except ([]RUE []RLE []LUE []LLE) Strength/Tone: Intact and Normal ([x]RUE [x]RLE [x]LUE [x]LLE) Skin: Inspection [x]Normal []Rash []Lesion []Ulcer Palpation [x]Warm []Cool [x]Dry []Clammy []Nodules []Induration []Skin-tightening Cap-Refill: [x] <3 sec [] >3 seconds (delayed) Neurologic: GCS EYE: 4 - Opens spontaneously GCS MOTOR: 6 - Obeys commands for movement GCS Verbal: 1 - intubated Total GCS: 11 [x] Sensation grossly intact Psych: Mental Status Alert: [x]Yes [] No Oriented: []x0 []X1 []X2 []x3 Mood/Affect []Normal []Flat []Agitated []Depressed [x]Anxious []Calm []Sedated []NAD [facility] within last 24 hours- BMP: Recent Labs 09/29/2355709/30/2324610/01/23357 NA 138 142 143 K 3.2* 3.1* 3.5 CL 100 100 105 CO2 30 30 30 BUN 11 13 14 CREATININE 0.45* 0.55 0.51* CALCIUM 8.6 9.4 9.2 MG 1.6 2.0 1.9 PHOS 3.4 1.5* 3.0 LFTs: Recent Labs 10/01/23357 AST 31 ALT 19 PROT 7.0 ALBUMIN 4.5 BILITOT 0.3 ALKPHOS 78 Glucose: Recent Labs 09/29/2355709/30/2324610/01/23357 GLUCOSE 128* 169* 149* Procal: Recent Labs 09/30/23246 09/30/23 0725 PROCAL 0.08 0.08 CBC: Recent Labs 09/29/23 0558 09/29/23 1000 09/30/23 0247 09/30/23 0311 10/01/23 0358 WBC 8.4 -- 11.4* -- 7.4 HGB 8.2* < > 7.9* 8.7 7.6* HCT 25.8* -- 24.9* -- 24.7* PLT 102* -- 146 -- 153 MCV 90.5 -- 90.2 -- 92.2 RDW 13.7 -- 13.8 -- 14.6 < > = values in this interval not displayed. ABGs: Recent Labs 09/28/23 1731 09/29/23 1000 09/30/23 0311 PHART 7.386 -- -- MGO3YME 44.0 -- -- PO2ART 162.5* -- -- HXU6HSC 25.8* -- -- T0FTTZLG 60% Oxygen 50% Oxygen Vent Lactic Acid: Recent Labs 09/30/23 0247 LACTATE 0.8 INR: No results for input(s): INR in the last 72 hours. Cardiac Injury Profile: No results for input(s): CKTOTAL , CKMB , TROPONINI in the last 72 hours. Labs in Last 3 months: No results found for: TSH , VITD25 , PSA , INR , GLUF Microbiology- Urine Cx: Lab Results Component Value Date URINECX 07/29/2022 Insignificant growth based on current clinical guidelines Blood Cx: Lab Results Component Value Date BLOODCX No growth at 4 days 09/27/2023 Sputum Cx: Lab Results Component Value Date RESPCULT Few respiratory ailyn present. 09/27/2023 Gram Stain: Lab Results Component Value Date LABGRAM (A) 09/27/2023 Many Polymorphonuclear leukocytes per low power field LABGRAM Rare Epithelial cells per low power field (A) 09/27/2023 LABGRAM Moderate Gram positive bacilli (A) 09/27/2023 LABGRAM Few Gram positive cocci (A) 09/27/2023 PNA PCR: Lab Results Component Value Date HUMANMETAPNE Not Detected 09/27/2023 COVID19: No results found for: COVID19 Legionella Ag: Lab Results Component Value Date LEGIONELLAPN Not Detected 09/27/2023 Strep Ag: No results for input(s): STREPPNEUMO in the last 72 hours. Imaging- 09/27 MRI brain MRI Brain 09/27/23: IMPRESSION: 1. Areas of encephalomalacia in the right occipital and high left posterior parietal lobes with peripheral hemosiderin deposition consistent with remote infarcts or brain injury with prior peripheral hemorrhage. 2. Small area of encephalomalacia in the high right frontoparietal cortex and questionably the posterior aspect of the right hemisphere without hemosiderin deposition consistent with small remote infarcts or brain injury. 3. Nonspecific white matter hyperintensities most likely related to chronic ischemia and/or small vessel disease. 4. No evidence of acute ischemic disease or other acute or significant intracranial abnormality. 5. Prior large right craniotomy. 6. Acute right sphenoid sinusitis 7. Mild bilateral ethmoid and minimal left frontal sinus disease likely chronic. 09/26 CTA chest IMPRESSION: Minimal bilateral pleural effusions and adjacent slight infiltrate or atelectasis. 09/27 tte Left Ventricle: Left ventricle size is normal. Normal wall thickness. Mildly reduced left ventricular systolic function. The EF by visual approximation is 45%. Abnormal wall motion. There appears to be global hypokinesis, worse in apical segments. Right Ventricle: Right ventricle size is normal. Normal systolic function. Mitral Valve: Moderate (2+) regurgitation with a posterior directed jet. Left Atrium: Left atrium is severely dilated. LA Vol Index A/L is 50 mL/m2. No significant valvular abnormalities. Technically difficult study. Assessment and Plan: Acute on chronic hypoxic/hypercarbic resp failure ?bilateral infiltrate - likely aspiration in setting of seizures vs HAP COPD Hx prior trach/peg (07/2022, reversed shortly after per family) -Initial intubation for 2 days, extubated and required intubation again 09/27 after around 12 hours of being extubated d/t increased WOB/hypoxia into 60s after getting up to BSC. Solumedrol decreased 60mg daily. Nebs. Needs bipap when extubated. Switch sedation to precedex - keep on when extubated d/t anxiety being reason for re-intubation. Abd distention ?SBO vs ogilvies -KUB with enlarged bowel. Surgery consulted this afternoon. CT A/P pending. Has not had bowel movement since admit, had increased bowel regimen yesterday with no success. Seizures (known history CHRO) -?seizure activity prior to re-intubation, was hypercarbic - deviated to the R, minimally responsive. Dilantin Dc'ed, started on keppra on admission - will cont keppra outpatient if tolerates, hope with decreased dosing will increase compliance. NeuroCC signed off. -per family 1st seizure in 07/2022 and has not had recurrence since. Was told likely r/t hypercarbia. Transaminitis, resolved Normocytic anemia Thrombocytopenia -hgb 7.6, stable. Plt 153 improving. No signs of bleeding. Likely dilutional / mixed with sepsis. 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 Anxiety RLS -Restarted home meds: duloxetine 60mg daily, lexapro 10mg. At recent visit prescribed gabapentin 300mg nightly, has not started taking yet - will order here. Also ordered PRN vistaril - increased to 50mg Q6H PRN yesterday Prior alcohol abuse -sober for at least 2-3 years per family. Ethanol and ethyl gluc negative. Folic acid, thiamine. GOC: Full code. Palliative following. GI Prophylaxis: Pantoprazole IV DVT Prophylaxis: Lovenox 40 q 24hr - creatinine clearance >30 Disposition: Remain in ICU Status Critical Care Time: 35 minutes Total critical care time caring for this patient with life threatening, unstable organ failure, including direct patient contact, management of life support systems, review of data including imaging and labs, discussions with other team members and physicians, excluding procedures. Spiritual Care Note [facility] Palliative Care Patient Name:Luiza May Chief Complaint: No chief complaint on file. Reason for visit: Follow Up Services Provided To:patient and care team Background and visit note: Conferred with patient's nurse. Patient is intubated , alert and on the ventilator. Patient communicates by head nodding. Patient indicate that she was tired and aggravated by being intubated and on the ventilator. No family present. Encouraged patient.Scripture reading. Provided supportive prayer. A total time of 15 minutes was spent with this encounter including visitation, conferring with staff, and documentation. Is there spiritual distress? YES Comment: Patient is aggravated with her situation Interventions: spiritual support provided, emotional support provided, validated feelings, and alleviation of fear and anxiety. Care Plan: spiritual integration, find peace/acceptance, and connect to higher power. Follow Up: PRN. Debriefed: with patients nurse. Anurag Coburn 10/01/23 10/01/23 1340 Patient Parameters Ventilator On Yes Spontaneous Breathing Trial Weaning Stop Time 1340 Spontaneous Breathing Trial (SBT) Outcome SBT Passed (ended for CT trip) Images from the original note were not included. PHYSICAL THERAPY [facility] Initial Evaluation Name/MRN: Luiza May ([id number]) Evaluation Date: 10/01/2023 Date of : 1955 Admission Date: 09/26/2023 2:17 PM Age: 67 y.o. Room/Bed: T2-215/T2-215 A Discharge Recommendation: IP Rehab, Continue to assess pending progress Assessment IMPRESSION: Patient currently intubated and cuffed on 40%FiO2 Spont. She is alert and following commands. She communicates with head nods, hand gestures, and mouthing words. She was min x2 for bed roll, mod x2 for supine to sit, and max A-SBA or EOB balance. Functionally, she is ready to progress to standing; however, upon sitting EOB her BP increased to 152bpm. She was able to perform BLE AROM in sitting with BUE support. Recommend IPR at discharge, continue to assess pending progress. Diagnosis: Seizure, Acute on chronic respiratory failure, Prognosis: good Performance Deficits /Impairments: Increased Pain, Decreased Functional Mobility, Decreased ADL status, Decreased Strength, Decreased Endurance, and Decreased Balance Decision Making: Medium Complexity Subjective Pt in bed and agreeable to PT. RN present for majority of eval. Pain: RN managing pain. Past Medical History: Past Medical History: Diagnosis Date Asthma CAD (coronary artery disease) Cerebral artery occlusion with cerebral infarction ([facility]/HCC) ([facility]) COPD (chronic obstructive pulmonary disease) ([facility]) Hypertension Past Surgical History: Past Surgical History: Procedure Laterality Date APPENDECTOMY CHOLECYSTECTOMY COLONOSCOPY COLONOSCOPY CT CHEST ANGIOGRAM W AND/OR WO IV CONTRAST 07/26/2022 CT CHEST ANGIOGRAM W AND/OR WO IV CONTRAST 07/26/[address] [facility] [address] [facility] Admission Diagnosis: Patient Active Problem List Diagnosis Date Noted Seizure ([facility]) 09/26/2023 Severe malnutrition ([facility]) ([facility]) 07/26/2022 COPD exacerbation ([facility]) 07/25/2022 Hemorrhage of gastrointestinal tract 04/17/2017 Cerebrovascular accident (CVA) due to embolism of cerebral artery ([facility]) 02/12/2017 Acute deep vein thrombosis (DVT) of distal vein of right lower extremity ([facility]) 02/12/2017 Encephalopathy 02/12/2017 Posterior reversible encephalopathy syndrome (PRES) 02/12/2017 Alcohol abuse 02/10/2017 NSTEMI (non-ST elevated myocardial infarction) ([facility]) ([facility]) 02/10/2017 History of hematemesis 02/10/2017 Medical Precautions: No active isolations Proper PPE donned/doffed in accordance with facility standards. Fall Risk: Garcia Fall Risk Score: 75 (High Risk) Precautions/Restrictions: Lines/Drains/Airways: CVC, Soliman, NG, tele, IV, ETT 40%FiO2 Spont. Family/Caregiver Present: Family arrived at end of evaluation Overall Cognitive Status: WFL She responds appropriately to commands and questions Overall Orientation Status: Unable to Assess Vision: not assessed this session Hearing: normal Social/Functional History Prior Level of Function ADL Assistance: Independent Ambulation Assistance: Independent Transfer Assistance: Independent Objective Lower Extremity Assessment AROM: WNL in sitting; 50% of knee flexion B/L in supine PROM: Not assessed this session Strength: Exceptions: Pt grossly 3+/5 demonstrated by functional mobility Bed Mobility: Supine to sit: Mod Assist, x2 Person Assist Sit to supine: Mod Assist, x2 Person Assist Rolling to right: Min Assist, x2 Person Assist Rolling to left: Min Assist, x2 Person Assist Transfers NT due to tachycardia into 152bpm Ambulation Did not assess this session. Balance: Pt sat EOB and was able to sit statically at SBA for 10 second intervals. She had difficulty with hand placement despite tactile cueing. Outcome Measures AM-PAC How much HELP from another person do you currently need Turning from your back to your side while in a flat bed without using bedrails?: A Little Moving from lying on your back to sitting on the side of a flat bed without using bedrails?: A Lot Moving to and from a bed to a chair (including a wheelchair)?: A Lot Standing up from a chair using your arms (wheelchair or bedside chair)?: Total Walking in a hospital room?: Total Stair climbing assessed?: No AM-PAC Inpatient Mobility Raw Score (No Stairs) : 9 JH-HLM JH-HLM Score: Sat at edge of bed Plan Pt would benefit from skilled acute PT services to address Strengthening, ROM, Balance Training, Functional Mobility Training, Endurance Training, and Gait Training. Frequency: 4x/week for 4 weeks Barriers: Pain, Decreased endurance, and Lower extremity weakness Safety/Education Safety Safety Devices in place: call light within reach, left in bed, and no alarms engaged upon entry Restraints: Yes Education Education Given To: patient Education Provided: PT Role, PT Goals, Transfer Training, and Discharge Recommendations Education Method: Verbal Barriers to Learning: None Education Outcome: Continued Education Needed Goals Patient Stated Goal: Patient unable to participate in goal setting at this time. Encounter Problems Encounter Problems (Active) Balance Patient will maintain dynamic standing balance for 5 minutes with modified independence in order to demonstrate decreased risk of falling. Start: 10/01/23 Expected End: 10/29/23 Mobility Patient will ambulate 100 feet with modified independence and rolling walker in order to improve safety and independence with mobility. Start: 10/01/23 Expected End: 10/29/23 Transfers Patient will perform bed mobility with modified independence in order to improve independence and prepare for out of bed mobility. Start: 10/01/23 Expected End: 10/29/23 Patient will complete sit to stand transfer with modified independence to wheeled walker in order to improve safety and prepare for out of bed mobility. Start: 10/01/23 Expected End: 10/29/23 Therapy Time Individual Co-treatment Time In 0848 Time Out 0908 Minutes 20 Lisa Deluna Patient's Physical Therapy Plan of Care supervision is transferred to a [facility] Physical Therapist. Goals and/or treatment plan was established in collaboration with patient/family/other representatives. Images from the original note were not included. OCCUPATIONAL THERAPY [facility] Initial Evaluation Name/MRN: Luiza May ([id number]) Evaluation Date: 10/01/2023 Date of : 1955 Admission Date: 09/26/2023 2:17 PM Age: 67 y.o. Room/Bed: T2-215/T2-215 A Discharge Recommendation: Residential Facility Assessment IMPRESSION: Pt presents with seizures and currently requires mod assist x2 for bed mobility, min assist x2 to roll in bed, and able to progress to periods of SBA sitting EOB. Pt is following all commands consistently and is able to communicate appropriately with yes/no questions. Pt would continue to benefit from therapies to maximize potential. OT recommending IPR at discharge. Performance Deficits /Impairments: Increased Pain, Decreased Functional Mobility, Decreased ADL status, Decreased Strength, Decreased Endurance, Decreased Balance, and Decreased Posture Prognosis: Fair Decision Making: Medium Complexity Subjective Pt met in bed, agreeable to OT. Pain: 0-10 pain scale: 10/10 Location: all over Past Medical History: Past Medical History: Diagnosis Date Asthma CAD (coronary artery disease) Cerebral artery occlusion with cerebral infarction (CMS/HCC) (HCC) COPD (chronic obstructive pulmonary disease) (HCC) Hypertension Past Surgical History: Past Surgical History: Procedure Laterality Date APPENDECTOMY CHOLECYSTECTOMY COLONOSCOPY COLONOSCOPY CT CHEST ANGIOGRAM W AND/OR WO IV CONTRAST 07/26/2022 CT CHEST ANGIOGRAM W AND/OR WO IV CONTRAST 07/26/[address] [facility] [address] [facility] Admission Diagnosis: Patient Active Problem List Diagnosis Date Noted Seizure (HCC) 09/26/2023 Severe malnutrition (CMS/HCC) (HCC) 07/26/2022 COPD exacerbation (HCC) 07/25/2022 Hemorrhage of gastrointestinal tract 04/17/2017 Cerebrovascular accident (CVA) due to embolism of cerebral artery (HCC) 02/12/2017 Acute deep vein thrombosis (DVT) of distal vein of right lower extremity (HCC) 02/12/2017 Encephalopathy 02/12/2017 Posterior reversible encephalopathy syndrome (PRES) 02/12/2017 Alcohol abuse 02/10/2017 NSTEMI (non-ST elevated myocardial infarction) (CMS/HCC) (HCC) 02/10/2017 History of hematemesis 02/10/2017 Medical Precautions: No active isolations Proper PPE donned/doffed in accordance with facility standards. Fall Risk: Garcia Fall Risk Score: 75 (High Risk) Precautions/Restrictions: Seizure Precautions Family/Caregiver Present: spouse, son and daughter Overall Cognitive Status: WFL, responds appropriately to all yes/no questions Overall Orientation Status: Unable to Assess Social/Functional History Patient admitted from home. Lives With: Spouse Type of Home: single family home Home Layout: Single Level Home Home Access: Bathroom Shower/Tub: Tub/Shower Combo Toilet: Standard Home Equipment: shower seat Homemaking Responsibilities: Independent Receives Help From: Family Active Couture Alterations Dressmaker: Yes Prior Level of Function ADL Assistance: Independent Ambulation Assistance: Independent Transfer Assistance: Independent Objective Upper Extremity Assessment AROM: Not formally assessed this session, WFL for bed mobility and use of bed rails Strength: Exceptions: WFL for static sitting balance with UE support and use of bed rails to roll Vision: not assessed this session Hearing: normal Bed Mobility Supine to sit: Mod Assist, x2 Person Assist Sit to supine: Mod Assist, x2 Person Assist Rolling to right: Min Assist, x2 Person Assist Rolling to left: Min Assist, x2 Person Assist Scooting: Max Assist Transfers/Functional Mobility Sitting balance: SBA, Max Assist, initially max assist with retrograde balance noted. Pregress Device(s) used: none AM-PAC AM-PAC Inpatient Daily Activity Raw Score: 12 ADL Inpatient [facility] G-Code Modifier: CL Plan Pt would benefit from skilled acute OT services to address Strengthening, Balance Training, Functional Mobility Training, Endurance Training, Pain Management, Safety Education and Training, Patient/Caregiver Training, Self-Care/ADL Training, and Home Management Training. Frequency: 3x/week for 4 weeks Barriers: Pain, Decreased endurance, and Medical complications Prognosis: fair Safety/Education Safety Safety Devices in place: All fall risk precautions in place, call light within reach, left in bed, patient at risk for falls, nurse notified, and no alarms engaged upon entry Restraints: Yes bilat soft wrist restraints present at beginning of session, removed during bed mobility, and reapplied at end of session Education Education Given To: patient Education Provided: OT Role, Plan of Care, and Benefits of Increasing Activity Education Method: Verbal Barriers to Learning: None Education Outcome: Demonstrated Understanding and Continued Education Needed Goals Patient Stated Goal: Patient unable to participate in goal setting at this time. Encounter Problems Encounter Problems (Active) Balance Patient will maintain dynamic standing balance for 2 minutes with SBA in order to demonstrate decreased risk of falling. Start: 10/01/23 Expected End: 10/29/23 Patient will maintain dynamic sitting balance for 5 minutes with supervision in order to demonstrate improved postural control and prepare for out of bed mobility. Start: 10/01/23 Expected End: 10/29/23 Dressing Upper Extremities Patient will complete upper body dressing SBA Start: 10/01/23 Expected End: 10/29/23 Dressings Lower Extremities Patient will dress lower body SBA Start: 10/01/23 Expected End: 10/29/23 Grooming Patient will complete daily grooming tasks SBA Start: 10/01/23 Expected End: 10/29/23 Toileting Patient will complete toileting tasks at bedside commode with SBA. Start: 10/01/23 Expected End: 10/29/23 Transfers BSC transfer min assist Start: 10/01/23 Expected End: 10/29/23 Therapy Time Individual Co-treatment Time In 0849 Time Out 0908 Minutes 19 Stephanie Cormier/DARNELL Patient's Occupational Therapy Plan of Care supervision is transferred to a [facility] Occupational Therapist. Goals and/or treatment plan was established in collaboration with patient/family/other representatives. Images from the original note were not included. Palliative Care Progress Note Chief Complaint: Luiza May is a 67 y.o. female with chief complaint of shortness of breath. Palliative Care will follow peripherally, please contact on-call provider for urgent needs Assessment/Plan Acute on chronic respiratory failure - hx COPD, prior trach and peg - tolerating SBT - per ICU: budesonide nebs, cefazolin, duonebs, methylprednisolone, midazolam and ketamine gtt, prn fentanyl - off gtts - when spoke with Ameena yesterday, does better when wears NIV at night but was not wearing consistently at home with boyfriend who does not make her wear. Education that she needs to do her part too Agitation/anxiety - per ICU duloxetine, escitalopram, gabapentin added last evening, slept well - not as anxious for me this morning Seizures - Per ICU: levetiracetam HX CVA/SDH - CHRO resided at home with s/o - PT/OT when able Risk for constipation - due to immobility - schedule polyethylene glycol - still without BM since admission, abdomen slightly distended, expresses around ETT she needs to poop - primary gave suppository - family at bedside aware she needs to poop before extubation HX ETOH abuse - no longer active drinker - per ICU: folic acid and thiamine Palliative Care Encounter -full code - without LW or HCPOA - - Daughter Ameena at bedside, along with brother and boyfriend Nasim introduced myself and service, thankful for all the care. Aware if gets extubated and fails will proceed with another trach and peg. - will continue to follow for ongoing monitoring of progression of mentation - will continue to evaluate test results related to Respiratory Failure, medication effectiveness for mentation , response to treatment of Respiratory Failure - follow Total of 40 minutes spent on this encounter including Chart review, Patient visit and exam, Documentation in EHR, Care coordination, Communicating with primary attending or other consultants, and Counseling and educating patient/family/caregiver. Discharge planning: Not ready for discharge due to medical instability Patient meets criteria for general inpatient hospice care including the following: N/A - Palliative Care Patient Referrals to: None Discussed patient and the plan of care with the other interdisciplinary team (IDT) members of Palliative Care Team, and with Primary Attending, Patient, Family, and Floor Nurse Insert attestation statement here if applicable (.disupervision) or (.npattest) I have discussed the patient's case and plan of care with my collaborating physician Dr. Bell Subjective: Subjective/Events Since last seen: awake, interactive with family, nods head appropriately to simple yes and no questions, without pain, CP, abdominal pain, breathing synchronously with vent, no evidence of nausea, vomiting, needs to have BM Luiza May is a 67 y.o. female living at home with s/o, PMHx includes: COPD, prior trach/peg 07/2022, HFpEF, takotsubo cardiomyopathy, HTN, fall last year with SDH requiring R crani/evacuation, anxiety, ETOH abuse, seizures, brought to [facility] for seizures however supratherapeutic dilantin level, hypercarbic requiring intubation and transfer to [facility] ICU level of care. Was successfully extubated however within a few hours with difficulty oxygenating requiring re-intubation. Palliative care consulted for goals of care Goals of care:Continue Current Management Functional Assessment: PPS: 30% Advance Directives: Full Code Surrogate: Child Prognosis: unknown Spiritual assessment: No spiritual distress identified Bereavement and grief: Grief Issues Not Identified Review of Systems ROS: See palliative care ROS/ESAS below; All other systems were reviewed and are negative. Canones Symptom Assessment Score Canones Score Pain Score 0 Tiredness Score 0 Nausea Score 0 Depression Score 0 Anxiety Score 0 Drowsiness Score 0 Anorexia Score (0= eating well, 10= not eating) 10 Wellbeing Score (10= worst sense of well-being) 10 Constipation 4 Dyspnea Score (0= no shortness of breath) 10 FLACC Scale (For Pain Assessment of the Non-Verbal Patient) Nods head no to pain Assessed by: patient and provider. Social history: Mccloud status: no Marital status: Living status: with partner / significant other Work history: unknown Family Meeting: (if discussing Advanced Care Planning, include .PALLACP) Participants: patient, significant other, child, and extended family Family meeting was held to discuss: as above plans for today Objective: Physical Exam BP 134/81 (BP Location: Left arm, Patient Position: Lying) Pulse (!) 127 Temp 38 C (100.4 F) (Bladder) Resp (!) 27 Ht 5' 2.01 (1.575 m) Wt 158 lb 15.2 oz (72.1 kg) SpO2 98% PF 48 L/min BMI 29.07 kg/m Physical Exam Vitals and nursing note reviewed. Constitutional: Appearance: She is obese. She is ill-appearing. Interventions: She is intubated and restrained. HENT: Head: Normocephalic and atraumatic. Nose: Nose normal. Mouth/Throat: Mouth: Mucous membranes are moist. Eyes: General: Right eye: No discharge. Left eye: No discharge. Cardiovascular: Rate and Rhythm: Normal rate and regular rhythm. Pulses: Normal pulses. Heart sounds: Normal heart sounds. No murmur heard. Comments: No edema B post tib/dorsalis pedis palpable Pulmonary: Effort: Pulmonary effort is normal. She is intubated. Breath sounds: Decreased breath sounds present. Abdominal: General: Bowel sounds are normal. There is distension. Palpations: Abdomen is soft. There is no mass. Genitourinary: Comments: Soliman to gravity Musculoskeletal: Cervical back: Normal range of motion and neck supple. Right lower leg: No edema. Left lower leg: No edema. Skin: General: Skin is warm and dry. Comments: fragile Neurological: Comments: Nods head to simple yes and no questions appropriately Psychiatric: Mood and Affect: Mood normal. Behavior: Behavior normal. Behavior is cooperative. Comments: No agitation Current Medications: Inpatient medications reviewed: yes Home medications reviewed: no OARRS Reviewed: copied from initial consult: Yes-no reportable medications 24 Hour PRN Meds: fentanyl 50mcg times 3, hydroxyzine 50mg times 3, dulcolax suppository times 1 Results/Verification of Data Review Objective data reviewed (be specific which labs, imaging reports with dates reviewed): MAR/vitals/labs/CXR report reviewed 10/01/23 Data in Support of Terminal Illness: Is patient hospice appropriate? TBD 10/01/23 0838 Patient Parameters Ventilator On Yes Vent ID [id number] Patient position Semi fowlers (30-45 ) Heart Rate (!) 127 Resp (!) 27 SpO2 98 % Respiratory Interventions Respiratory Interventions Performed Airway suction Suctioning/Secretions Secretion Amount Scant Suction Device Inline catheter Suctioning Adverse Effects Anxiety Suction Type Endotracheal Suction Tolerance Tolerated fairly well Suction Cath Size (Fr) Fr 14 ETT 7.5 mm Placement Date: 09/26/23 ETT Type: ETT - single Single Lumen Tube Size: 7.5 mm Cuffed: Yes Location: Oral Secured at (cm) 23 cm Measured from Lips Secured Location Right Secured by Commercial tube munguia Cuff Pressure (cm H2O) (mov) Airway Interventions Safety Equipment at Bedside Bag Valve Mask;Suction Settings Humidification Heater Heater Temperature 37 C (98.6 F) Vent Mode SPONT Mandatory Type PC Spontaneous Type PS FiO2 (%) 40 % PEEP/CPAP (cm H2O) 8 cm H20 Sensitivity 2 Expiratory Sensitivity (%) 25 % Rise Time (%) 70 % PSV 5 cmH2O Readings PIP Observed (cm H2O) 13 cm H2O MAP (cm H2O) 9.8 Resp Rate Observed 25 Vt (observed, mL) 220 mL Minute Ventilation (L/min) 4.87 L/min I:E Ratio 1:1.7 Plateau Pressure (cm H2O) 37 cm H2O Dynamic Compliance (L/cm H2O) 15 L/cm H2O Static Compliance (L/cm H2O) 20 Airway Resistance 19 Total PEEP (cm H2O) 1.3 cm H2O Alarms High RR Alarm 40 breaths per minute Insp Pressure High (cm H2O) 45 cm H2O MV High (L/min) 20 L/min MV Low (L/min) 2 L/min Vt High (marcellus) (mL) 1000 mL Vt Low (marcellus) (mL) 150 mL Vt High (spont) (mL) 1000 mL Vt Low (spont) (mL) 150 mL Apnea Interval (sec) 20 seconds Spontaneous Breathing Trial Weaning Start Time 0830 Weaning Tidal Volume 218 mL Weaning Respiratory Rate 24 Spontaneous Minute Volume (MV) 5.28 Weaning Tolerance Fair 10/01/23 0346 Wean Screen SpO2>/=88% Yes FiO2</=50% Yes PEEP </=8cmH2O Yes HR <140 BPM Yes RR </= 35 breaths/min Yes MAP >/= 65mmHg Yes Arterial pH >7.30 and <7.50 Yes Safety Screen Spontaneous Breathing Trial (SBT) Proceed with SBT - No exclusion criteria met ICU Progress Note Name: Luiza May : 1955(67 y.o.) Date: 09/30/23 Team: MICU Attending: Dr. Aguilar Subjective: Hospital Summary: 67F PMH Chronic resp failure s/p trach 07/2022 (reversed a few months later) current 4L home O2, CPAP QHS, HFpEF w/ takotsubo cardiomyopathy, Fall 01/08/2022 resulting in subdural hematoma requiring R crani/evac, prior DVT (07/2022, not on OAC), HTN/HLD, anxiety/depression, alcohol abuse, seizure disorder (on dilantin). Pt initially admitted to OSH 09/24. Prior to arrival there, was reportedly walking in to the bathroom when she started having tonic-clonic seizure activity lasting ~10 minutes, witnessed by fifelicity, called EMS and taken to OSH. Noted to have subtherapeutic dilantin level - was given keppra. Cont to have AMS, ABG with hypercarbic, pH 7.14, Co2 137 --> was intubated and transferred to [facility] ICU. 09/27: Extubated overnight. Required re-intubation that afternoon d/t hypoxia/increased WOB after getting up to BSC, desat ~65%, improved with BVM - eyes deviated to R -?seizure. Difficult to ventilate, started on versed gtt with improvement. 09/28: requiring ketamine/versed/precedex and still intermittently agitated. Recent unwitnessed fall 08/05/2023 resulting in subdural hematoma - admitted to [facility]. [facility] at that time. Has not followed up with NSGY d/t location/distance. Interval Events: Pt remains intubated. Hypotensive overnight requiring 500LR. On ketamine, off versed/precedex this afternoon. Does wake up and follow commands. Appears anxious when awake, but is redirectable. Long discussion with patient regarding need to keep ETT in for today but could take out tomorrow if passing SBT, but if fails will need trach - pt agreeable to this as well as pt's daughter. Denies pain. Denies SOB. Keeps mouthing that she wants to go home. Scheduled Meds:aspirin, 81 mg, Oral, Daily atorvastatin, 40 mg, Oral, Nightly budesonide, 0.5 mg, Nebulization, Daily ceFAZolin, 2,000 mg, IntraVENous, q8h DULoxetine, 60 mg, Oral, Daily enoxaparin, 40 mg, SubCUTAneous, Daily escitalopram, 10 mg, Oral, Daily folic acid, 1 mg, Oral, Daily gabapentin, 300 mg, Oral, Nightly ipratropium-albuterol, 3 mL, Nebulization, Q4H levETIRAcetam, 1,000 mg, IntraVENous, BID methylPREDNISolone sod suc (PF), 60 mg, IntraVENous, q12h pantoprazole (ProtoNix) 40 mg in sodium chloride (PF) 0.9 % 10 mL injection, 40 mg, IntraVENous, Nightly polyethylene glycol (PEG) 3350, 17 g, Oral, Daily artificial tears, 1 drop, Both Eyes, Daily QUEtiapine, 25 mg, Oral, BID thiamine (Vitamin B1) 100 mg in sodium chloride 0.9 % 100 mL IVPB, 100 mg, IntraVENous, q24h Continuous Infusions:ketamine 500 mg in sodium chloride 0.9 % 250 mL infusion, 0.05-2 mg/kg/hr (Ramona), Last Rate: 0.75 mg/kg/hr (09/30/23 0925) norepinephrine, 1-100 mcg/min, Last Rate: Stopped (09/30/23 1215) Objective: Last Vitals: BP MAP 136/65 (09/30/23 1630) 80 (09/30/23 1630) Arterial BP MAP Temp 37.9 C (100.2 F) (09/30/23 1630) Pulse 114 (09/30/23 1630) Resp 19 (09/30/23 1630) SpO2 96 % (09/30/23 1630) Weight 70.8 kg (156 lb) (09/28/23 1046) BMI Body mass index is 28.53 kg/m . I/O: 09/28 0700 - 09/29 0659 In: 4180.3 [I.V.:3262.3] Out: 3300 [Urine:3300] Oxygen Delivery: 4L NC Invasive Lines / Tubes / Drains: CVC Triple Lumen 09/26/23 Non-tunneled Right Internal jugular (Active) Number of days: 1 NG/OG Tube Orogastric Center mouth (Active) Number of days: 1 Urethral Catheter Temperature probe 18 Fr. (Active) Number of days: 1 ETT 7.5 mm (Active) Number of days: 1 Central Line Indication: Vesicant infusions/medications at high risk of causing extravasation Soliman Indications: Hourly I&Os (Critical Care ONLY) Restraints: Not in restraints Wounds: Wound/Incision 09/26/23 Traumatic Lip Left;Upper (Active) Date First Assessed: 09/26/23 Present on Original Admission: Yes Primary Wound Type: Traumatic Location: Lip Wound Location Orientation: Left;Upper Wound/Incision 09/26/23 Pressure Injury Heel Left (Active) Date First Assessed: 09/26/23 Present on Original Admission: Yes Primary Wound Type: Pressure Injury Location: Heel Wound Location Orientation: Left Pressure Injury Stage: Stage 1 Constitutional: General Appearance [x]WDWN []Obese []Cachectic []Thin []IllMy Note Progress Notes Critical Care 09/29/2023 06:44 AM Eyes: Inspection of Pupils/Irises Pupils round and react: [x]Yes []No Sclera: []Icteric [x]Non-Icteric Inspection of Conjunctiva/Lids Conjunctiva: []Injected [x]Non-Injected Lids: [x]Intact []Lesion Present ENT/Mouth: External Inspection of ears/nose [x] Normal [] Scar/Lesion/Mass Inspection of teeth/lips/gums Dentition: [x][place] Teeth []Dentures Lips/Gums: [x]Intact []Lesion Present Mucosa: [x][place] []Moist [x]Dry Neck: External Appearance Overall Appearance: [x]Normal []Lesion/Mass/Crepitus Present Trachea midline: [x]Yes []No Thyroid []Normal []Enlarged []Tender []Mass []Absent Respiratory: Respiratory effort []Labored [x]Non-Labored [x] Mechanically-Ventilated Auscultation []Clear []Crackles [x]Wheezes []Rhonchi Cardiovascular: Auscultation Rate: [x]Regular []Irregular [x]Tachycardia []Bradycardia Rhythm: [x]Regular []Irregular Murmur: []Present [x]Absent Extremities Peripheral Edema: []Present [x]Absent Varicosities: []Present [x]Absent Gastrointestinal: Abdomen Palpation: [x]Soft []Firm []Tender [x]Non-Tender []Distended [x]Non-distended Mass: []Present []Absent Bowel Sounds: []Present []Absent Hernia: []Present []Absent Liver/Spleen: []Hepatosplenomegaly []Organomegaly Absent Musculoskeletal: Inspection of Digits and Nails Cyanosis: []Present [x]Absent Clubbing: []Present [x]Absent Ischemia: []Present [x]Absent Infection: []Present [x]Absent Extremities REGALADO Equally: Except ([]RUE []RLE []LUE []LLE) Strength/Tone: Intact and Normal ([x]RUE [x]RLE [x]LUE [x]LLE) Skin: Inspection [x]Normal []Rash []Lesion []Ulcer Palpation [x]Warm []Cool [x]Dry []Clammy []Nodules []Induration []Skin-tightening Cap-Refill: [x] <3 sec [] >3 seconds (delayed) Neurologic: GCS EYE: 4 - Opens spontaneously GCS MOTOR: 6 - Obeys commands for movement GCS Verbal: 1 - intubated Total GCS: 11 [x] Sensation grossly intact Psych: Mental Status Alert: [x]Yes [] No Oriented: []x0 []X1 []X2 []x3 Mood/Affect []Normal []Flat []Agitated []Depressed [x]Anxious []Calm []Sedated []NAD [facility] within last 24 hours- BMP: Recent Labs 09/27/23192309/28/2363809/29/2355709/30/23246 NA -- 138 138 142 K -- 3.7 3.2* 3.1* CL -- 106 100 100 CO2 -- 27 30 30 BUN -- 11 11 13 CREATININE -- 0.46* 0.45* 0.55 CALCIUM -- 8.1* 8.6 9.4 MG -- 1.9 1.6 2.0 PHOS 3.9 -- 3.4 1.5* LFTs: Recent Labs 09/28/23638 AST 47* ALT 62* PROT 6.0* ALBUMIN 3.5 BILITOT 0.6 ALKPHOS 101 Glucose: Recent Labs 09/28/2363809/29/23 0558 09/30/23 024 GLUCOSE 101* 128* 169* Procal: Recent Labs 09/30/2324609/30/23 0725 PROCAL 0.08 0.08 CBC: Recent Labs 09/28/23 0639 09/28/23 1219 09/28/23 1731 09/29/23 0558 09/29/23 1000 09/30/23 0247 09/30/23 0311 WBC 6.6 -- -- 8.4 -- 11.4* -- HGB 7.7* -- < > 8.2* 8.5 7.9* 8.7 HCT 25.0* 30* -- 25.8* -- 24.9* -- PLT 101* -- -- 102* -- 146 -- MCV 92.6 -- -- 90.5 -- 90.2 -- RDW 13.9 -- -- 13.7 -- 13.8 -- < > = values in this interval not displayed. ABGs: Recent Labs 09/28/23 1219 09/28/23 1731 09/29/23 1000 09/30/23 0311 PHART 7.170* 7.386 -- -- ADX3SMN 80.0* 44.0 -- -- PO2ART 439.0* 162.5* -- -- [id number] 29.2* 25.8* -- -- SO2ART 99.9 -- -- -- [id number] -- 60% Oxygen 50% Oxygen Vent Lactic Acid: Recent Labs 09/30/23 0247 LACTATE 0.8 INR: No results for input(s): INR in the last 72 hours. Cardiac Injury Profile: No results for input(s): CKTOTAL , CKMB , TROPONINI in the last 72 hours. Labs in Last 3 months: No results found for: TSH , VITD25 , PSA , INR , GLUF Microbiology- Urine Cx: Lab Results Component Value Date URINECX 07/29/2022 Insignificant growth based on current clinical guidelines Blood Cx: Lab Results Component Value Date BLOODCX No growth at 72 hours 09/27/2023 Sputum Cx: Lab Results Component Value Date RESPCULT Few respiratory ailyn present. 09/27/2023 Gram Stain: Lab Results Component Value Date LABGRAM (A) 09/27/2023 Many Polymorphonuclear leukocytes per low power field LABGRAM Rare Epithelial cells per low power field (A) 09/27/2023 LABGRAM Moderate Gram positive bacilli (A) 09/27/2023 LABGRAM Few Gram positive cocci (A) 09/27/2023 PNA PCR: Lab Results Component Value Date HUMANMETAPNE Not Detected 09/27/2023 COVID19: No results found for: COVID19 Legionella Ag: Lab Results Component Value Date LEGIONELLAPN Not Detected 09/27/2023 Strep Ag: No results for input(s): STREPPNEUMO in the last 72 hours. Imaging- 09/27 MRI brain MRI Brain 09/27/23: IMPRESSION: 1. Areas of encephalomalacia in the right occipital and high left posterior parietal lobes with peripheral hemosiderin deposition consistent with remote infarcts or brain injury with prior peripheral hemorrhage. 2. Small area of encephalomalacia in the high right frontoparietal cortex and questionably the posterior aspect of the right hemisphere without hemosiderin deposition consistent with small remote infarcts or brain injury. 3. Nonspecific white matter hyperintensities most likely related to chronic ischemia and/or small vessel disease. 4. No evidence of acute ischemic disease or other acute or significant intracranial abnormality. 5. Prior large right craniotomy. 6. Acute right sphenoid sinusitis 7. Mild bilateral ethmoid and minimal left frontal sinus disease likely chronic. 09/26 CTA chest IMPRESSION: Minimal bilateral pleural effusions and adjacent slight infiltrate or atelectasis. 09/27 tte Left Ventricle: Left ventricle size is normal. Normal wall thickness. Mildly reduced left ventricular systolic function. The EF by visual approximation is 45%. Abnormal wall motion. There appears to be global hypokinesis, worse in apical segments. Right Ventricle: Right ventricle size is normal. Normal systolic function. Mitral Valve: Moderate (2+) regurgitation with a posterior directed jet. Left Atrium: Left atrium is severely dilated. LA Vol Index A/L is 50 mL/m2. No significant valvular abnormalities. Technically difficult study. Assessment and Plan: Acute on chronic hypoxic/hypercarbic resp failure ?bilateral infiltrate - likely aspiration in setting of seizures vs HAP COPD Hx prior trach/peg (07/2022, reversed shortly after per family) -Initial intubation for 2 days, extubated and required intubation again 09/27 after around 12 hours of being extubated. Had increased WOB/hypoxia yesterday into 60s requiring re-intubation. Solumedrol 60mg Q12H - can likely decrease tomorrow. Cont cefazolin. CXR with some improvement of volume overload. PRN diuresis, although required some volume overnight d/t hypotension. I&O - overall +3L since admit. Cont nebs. Only on ketamine for sedation this afternoon. Needs bipap when extubated. Seizures (known history CHRO) -?seizure activity prior to re-intubation, was hypercarbic - deviated to the R, minimally responsive. Dilantin Dc'ed, started on keppra on admission - will cont keppra outpatient if tolerates, hope with decreased dosing will increase compliance. NeuroCC following. -per family 1st seizure in 07/2022 and has not had recurrence since. Was told likely r/t hypercarbia. Transaminitis -?shock vs other. Was hypotensive on arrival, off levo. Improving. Repeat tomorrow. Normocytic anemia Thrombocytopenia -hgb 7.9, stable. Plt 146 improving. No signs of bleeding. Likely dilutional / mixed with sepsis. 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 Anxiety RLS -Restarted home meds: duloxetine 60mg daily, lexapro 10mg. At recent visit prescribed gabapentin 300mg nightly, has not started taking yet - will order here. Also ordered PRN vistaril - increased to 50mg Q6H PRN Prior alcohol abuse -sober for at least 2-3 years per family. Ethanol and ethyl gluc negative. Folic acid, thiamine. GOC: Full code. Palliative following. GI Prophylaxis: Pantoprazole IV DVT Prophylaxis: Lovenox 40 q 24hr - creatinine clearance >30 Disposition: Remain in ICU Status Critical Care Time: 35 minutes Total critical care time caring for this patient with life threatening, unstable organ failure, including direct patient contact, management of life support systems, review of data including imaging and labs, discussions with other team members and physicians, excluding procedures. Nutrition Assessment Type and Reason for Visit: Reassess Nutrition Recommendations/Plan: Continue with current EN and rate. Monitor EN tolerance. Monitor nutritional status. Malnutrition Assessment: Malnutrition Status: Severe malnutrition (per RD assessment 07/26/23.) Context: Chronic Illness Findings of the 6 clinical characteristics of malnutrition: Energy Intake: (receives nutrition via EN (per assessment 07/28)) Weight Loss: Greater than 7.5% over 3 months (12.2 % loss of UBW x 4 months (07/26/23)) Body Fat Loss: Severe body fat loss Orbital, Buccal region Muscle Mass Loss: Severe muscle mass loss Temples (temporalis), Hand (interosseous) Fluid Accumulation: Software Requirements Engineer Strength: Not Performed Nutrition Assessment: Pt is a 67 year old male with PMH significant for COPD with chronic hypoxic respiratory failure on 2L of Oxygen and BiPAP at night (poor compliance) s/p tracheostomy (2022), HFpEF with Takotsubo Cardiomyopathy, CVA with chronic dysphagia and aspiration on altered diet with prior PEG tube (2022), hemorrhagic CVA s/p surgical intervention at [facility] (2021), GERD, h/o VTE, HTN, depression, anxiety, h/o Breast Cancer, former EtOH abuse, seizure disorder on Dilantin who presents from [facility] for management of encephalopathy d/t acute on chronic hypoxic hypercapnic respiratory failure and an apparent break-through seizure. Wound Care consulted for left heel, left forearm and lip. Pt continues on vent. Estimated Daily Nutrient Needs: Energy Requirements Based On: Kcal/kg Weight Used for Energy Requirements: Ramona Weight for Energy Calculation (kg): 50 kg Total Energy Requirements (kcals/day): 25-30 kcals/kg = 3863-4835 kcals/day Weight Used for Protein Requirements: Ramona Weight in Kg Used for Protein Requirements: 50 kg Estimated Total Protein (g/day): 1.2-1.4g protein/kg = 60-70g protein/day Estimated Daily Total Fluid (ml/day): per MD Nutrition Related Findings: Hypoactive BS, abd soft, tender, no BM this admission. Meds: Dulcolax, Miralax, Precedex, Lexapro, Fentanyl. Wound Type: Multiple Net IO Since Admission: 2,762.51 mL [09/30/23 1616] Current Nutrition Therapies: Enteral Nutrition Feeding Route: Orogastric EN Formula: Vital 1.5 Kelvin EN Schedule: Continuous EN Feeding Regimen: Vital 1.5 @ 15 mls/hour, increased 10 mls every 4 hours to goal of 35 mls/hour. Water Flushes: 30 mls every 4 hours Current EN & Flush Order Provides: Vital 1.5 @ 35 mls/hour = 1260 kcals, 56g protein, 641 mls free H20 = 25 kcals/kg + 1.12g protein/kg IBW. Goal EN & Flush Order Provides: same Anthropometric Measures: Height: 157.5 cm (5' 2.01 ) Current Body Weight: 70.8 kg (156 lb 1.4 oz) (09/28/23) Weight Source: Bed Scale Admission Body Weight: 72.2 kg (159 lb 2.8 oz) Ramona Body Weight (lbs) (Calculated): 110 lbs Ramona Body Weight (Kg) (Calculated): 50 kg % Ramona Body Weight (Calculated): 141.9 % BMI (kg/m2) (Calculated): 28.5 BMI Categories: Overweight (BMI 25.0-29.9) Wt Readings from Last 10 Encounters: 09/28/23 70.8 kg (156 lb) 07/26/22 55.2 kg (121 lb 9.6 oz) LABS: Recent Labs 09/27/23 1924 09/28/23 0639 09/29/23 0558 09/30/23 0247 NA -- 138 138 142 K -- 3.7 3.2* 3.1* CL -- 106 100 100 CO2 -- 27 30 30 BUN -- 11 11 13 CREATININE -- 0.46* 0.45* 0.55 GLUCOSE -- 101* 128* 169* CALCIUM -- 8.1* 8.6 9.4 MG -- 1.9 1.6 2.0 PHOS 3.9 -- 3.4 1.5* BG - elevated. Phos - decreased, K+ - decreased. Recent Labs 09/28/23 0639 AST 47* ALT 62* BILITOT 0.6 ALKPHOS 101 Nutrition Diagnosis: Inadequate energy intake, Altered GI function related to impaired respiratory function as evidenced by NPO or clear liquid status due to medical condition, intubation Nutrition Interventions: Nutrition Education/Counseling: No recommendation at this time Coordination of Nutrition Care: Continue to monitor while inpatient Goals: Goals: Tolerate nutrition support at goal rate, by next RD assessment Nutrition Monitoring and Evaluation: Food/Nutrient Intake Outcomes: Enteral Nutrition Intake/Tolerance Physical Signs/Symptoms Outcomes: Biochemical Data, GI Status, Weight, Skin, Nutrition Focused Physical Findings, Hemodynamic Status, Fluid Status or Edema Discharge Planning: Too soon to determine Jamila Wiley RD,LD,[facility] Contact: *[phone] or Markit Chat Spiritual Care Note [facility] Palliative Care Patient Name:Luiza May Chief Complaint: No chief complaint on file. Reason for visit: Initial Visit Background and visit note: Conferred with Patient's nurse. Nurse share patient was anxious. Introduction and explanation of role. Patient sitting up in bed, intubated and on the ventilator.. Patient communicated by nodding of head. Patient shared that she has three children and nine grandchildren. Patient confirmed that she is Worship and attends a restorationist in [place]. Patient confirmed that she was frighten because of the seizures.Patient confirmed that not knowing when the next one will happen makes her very anxious and she feels helpless. Patient confirmed that praying helps her anxiety. Normalization of patient's feelings., companionship and supportive prayer. A total of 30 minutes was spent with this encounter including conferring with staff, visitation, and documentation. Is there spiritual distress? YES Comment: Patient feeling afraid and helpless Interventions: spiritual support provided, emotional support provided, empathetic listening, validated feelings, and alleviation of fear and anxiety. Care Plan: spiritual integration, find peace/acceptance, and connect to higher power. Follow Up: daily. Debriefed: with patients nurse. Anurag Coburn 09/30/23 09/30/23 1247 Spontaneous Breathing Trial Weaning Start Time 1247 Weaning Tidal Volume 259 mL Weaning Respiratory Rate 18 Spontaneous Minute Volume (MV) 6.6 Total RSBI 69 Weaning Tolerance Fair Weaning Stop Time 1321 Weaning Duration (min) 30 Spontaneous Breathing Trial (SBT) Outcome SBT Passed VT throughout trial 250-290. Patient expressing she feels tired at end of trial Images from the original note were not included. Palliative Care Progress Note Chief Complaint: Luiza May is a 67 y.o. female with chief complaint of shortness of breath. Palliative Care will follow peripherally, please contact on-call provider for urgent needs Assessment/Plan Acute on chronic respiratory failure - hx COPD, prior trach and peg - FiO2: 40%, peep 8, rate 14, breathing above vent - per ICU: budesonide nebs, cefazolin, duonebs, methylprednisolone, midazolam and ketamine gtt, prn fentanyl - per ICU plans to dc gtts today Agitation/anxiety - per ICU precedex gtt, duloxetine, prn hydroxyzine - much more calm today, able to nod head to simple yes and no questions as well as follow commands Seizures - Per ICU: levetiracetam HX CVA/SDH - CHRO resided at home with s/o - PT/OT when able Risk for constipation - due to immobility - schedule polyethylene glycol - still without BM since admission HX ETOH abuse - no longer active drinker - per ICU: folic acid and thiamine Palliative Care Encounter -full code - without LW or HCPOA - - Daughter Ameena listed as emergency contact, will need to confirm how many children Luiza has for NOK decision-making, hopeful in upcoming days Luiza can be participant in conversations - no family at bedside currently, asked to be messaged when family arrives, vs call with ICU team for updates, see notes for details of conversations will be labeled significant events - will continue to follow for ongoing monitoring of progression of mentation - will continue to evaluate test results related to Respiratory Failure, medication effectiveness for mentation , response to treatment of Respiratory Failure - follow Total of 40 minutes spent on this encounter including Chart review, Patient visit and exam, Documentation in EHR, Care coordination, Communicating with primary attending or other consultants, and Counseling and educating patient/family/caregiver. Discharge planning: Not ready for discharge due to medical instability Patient meets criteria for general inpatient hospice care including the following: N/A - Palliative Care Patient Referrals to: None Discussed patient and the plan of care with the other interdisciplinary team (IDT) members of Palliative Care Team, and with Primary Attending, Patient, Family, and Floor Nurse Insert attestation statement here if applicable (.disupervision) or (.npattest) I have discussed the patient's case and plan of care with my collaborating physician Dr. Bell Subjective: Subjective/Events Since last seen: remains intubated, sedated, restrained on vent, does awaken and nod head more appropriately today compared to yesterday with out pain, CP, abdominal pain, breathing easy, synchronously with vent, not fighting vent, no evidence of nausea, vomiting, tolerating TF, still without BM this admission, on day 3 Luiza May is a 67 y.o. female living at home with s/o, PMHx includes: COPD, prior trach/peg 07/2022, HFpEF, takotsubo cardiomyopathy, HTN, fall last year with SDH requiring R crani/evacuation, anxiety, ETOH abuse, seizures, brought to [facility] for seizures however supratherapeutic dilantin level, hypercarbic requiring intubation and transfer to [facility] ICU level of care. Was successfully extubated however within a few hours with difficulty oxygenating requiring re-intubation. Palliative care consulted for goals of care Goals of care:Continue Current Management Functional Assessment: PPS: 30% Advance Directives: Full Code Surrogate: Child Prognosis: unknown Spiritual assessment: No spiritual distress identified Bereavement and grief: Grief Issues Not Identified Review of Systems ROS: See palliative care ROS/ESAS below; All other systems were reviewed and are negative. Canones Symptom Assessment Score Canones Score Pain Score 0 Tiredness Score 0 Nausea Score 0 Depression Score 0 Anxiety Score 0 Drowsiness Score 0 Anorexia Score (0= eating well, 10= not eating) 10 Wellbeing Score (10= worst sense of well-being) 10 Constipation 3 Dyspnea Score (0= no shortness of breath) 10 FLACC Scale (For Pain Assessment of the Non-Verbal Patient) Nods head no to pain Assessed by: patient and provider. Social history: status: no Marital status: Living status: with partner / significant other Work history: unknown Family Meeting: (if discussing Advanced Care Planning, include .PALLACP) Participants: child Family meeting was held to discuss: see notes for details of conversation Objective: Physical Exam BP 111/59 Pulse 82 Temp 37.5 C (99.5 F) Resp 18 Ht 5' 2 (1.575 m) Wt 156 lb (70.8 kg) SpO2 99% PF 48 L/min BMI 28.53 kg/m Physical Exam Vitals and nursing note reviewed. Constitutional: Appearance: She is obese. She is ill-appearing. Interventions: She is sedated, intubated and restrained. HENT: Head: Normocephalic and atraumatic. Nose: Nose normal. Mouth/Throat: Mouth: Mucous membranes are moist. Eyes: General: Right eye: No discharge. Left eye: No discharge. Pupils: Pupils are equal, round, and reactive to light. Cardiovascular: Rate and Rhythm: Normal rate and regular rhythm. Pulses: Normal pulses. Heart sounds: Normal heart sounds. No murmur heard. Comments: No edema B post tib/dorsalis pedis palpable Pulmonary: Effort: Pulmonary effort is normal. She is intubated. Breath sounds: Decreased breath sounds present. Abdominal: General: Bowel sounds are normal. There is no distension. Palpations: Abdomen is soft. There is no mass. Genitourinary: Comments: Soliman to gravity Musculoskeletal: Cervical back: Normal range of motion and neck supple. Right lower leg: No edema. Left lower leg: No edema. Skin: General: Skin is warm and dry. Comments: fragile Neurological: Comments: Awake, following commands, nodding head appropriately to simple yes and no questions Psychiatric: Mood and Affect: Mood normal. Behavior: Behavior normal. Behavior is cooperative. Comments: No agitation Current Medications: Inpatient medications reviewed: yes Home medications reviewed: no OARRS Reviewed: copied from initial consult: Yes-no reportable medications 24 Hour PRN Meds: fentanyl 50mcg times 4, hydroxyzine 25mg times 3 Results/Verification of Data Review Objective data reviewed (be specific which labs, imaging reports with dates reviewed): MAR/vitals/labs/CXR report reviewed 09/30/23 Data in Support of Terminal Illness: Is patient hospice appropriate? TBD Images from the original note were not included. PHYSICAL THERAPY [facility] Name/MRN: Luiza May ([id number]) Date: 09/30/2023 Attempted PT evaluation, pt was non arousable despite many techniques to elicit participation. Continue as screens and evaluate as appropriate. Lisa Deluna Images from the original note were not included. [facility] Progress Note Luiza May AGE: 67 y.o. GENDER: female : 1955 Subjective: HISTORY of PRESENT ILLNESS HPI Luiza May is a 67 y.o. female who presents for a wound care follow up. HPI: Ms. May is a 67yo F with PMHx of COPD with Chronic Hypoxic respiratory failure on 2L of Oxygen and BiPAP at night (poor compliance) s/p tracheostomy (2022), HFpEF with Takotsubo Cardiomyopathy, CVA with chronic dysphagia and aspiration on altered diet with prior PEG tube (2022), hemorrhagic CVA s/p Surgical intervention at [facility] (2021), GERD, h/o VTE, Hypertension, depression, anxiety, h/o Breast Cancer, former EtOH abuse, Seizure disorder on Dilantin was sent to [facility] from [facility] for management of Encephalopathy secondary to Acute on chronic Hypoxic Hypercapnic respiratory failure and what seem to be a break through seizure. Wound Care consulted for left heel, left forearm and lip. Dressing to left arm changed at time of visit. PAST MEDICAL HISTORY Past Medical History: Diagnosis Date Asthma CAD (coronary artery disease) Cerebral artery occlusion with cerebral infarction (CMS/HCC) (HCC) COPD (chronic obstructive pulmonary disease) (HCC) Hypertension PAST SURGICAL HISTORY Past Surgical History: Procedure Laterality Date APPENDECTOMY CHOLECYSTECTOMY COLONOSCOPY COLONOSCOPY CT CHEST ANGIOGRAM W AND/OR WO IV CONTRAST 07/26/2022 CT CHEST ANGIOGRAM W AND/OR WO IV CONTRAST 07/26/[address] [facility] [address] IMAGING FAMILY HISTORY No family history on file. SOCIAL HISTORY Social History Tobacco Use Smoking status: Former Types: Cigarettes Quit date: 07/13/2013 Years since quittin.2 Vaping Use Vaping Use: Never used Substance Use Topics Alcohol use: No Drug use: No ALLERGIES Allergies Allergen Reactions Tetanus Toxoid Swelling MEDICATIONS No current facility-administered medications on file prior to encounter. Current Outpatient Medications on File Prior to Encounter Medication Sig Dispense Refill albuterol 108 (90 Base) MCG/ACT inhaler Inhale 2 puffs as needed. 4 times daily as needed ARIPiprazole (Abilify) 2 MG tablet Take 2 mg by mouth in the morning. atorvastatin (Lipitor) 40 MG tablet Take 1 tablet by mouth Nightly. bisacodyl (Dulcolax) 10 MG suppository Insert 10 mg into the rectum Daily as needed. budesonide (Pulmicort) 0.5 MG/2ML nebulizer solution Take 2 mL (0.5 mg) by nebulization in the morning. Rinse mouth with water after use to reduce aftertaste and incidence of candidiasis. Do not swallow.. Do not start before August 05, 2022. 60 mL 11 cholecalciferol (Vitamin D-3) 25 MCG (1000 UT) capsule Take 1,000 Units by mouth in the morning. DULoxetine (Cymbalta) [address] capsule Take 60 mg by mouth in the morning. folic acid (Folvite) 1 MG tablet Take 1 mg by mouth in the morning. hydrogen peroxide 3 % external solution Apply topically as needed (Trach care). levalbuterol (Xopenex) 1.25 MG/3ML nebulizer solution Take 3 mL (1.25 mg) by nebulization in the morning and 3 mL (1.25 mg) at noon and 3 mL (1.25 mg) in the evening. 0 LORazepam (Ativan) 0.5 MG tablet Take 1 tablet (0.5 mg) by mouth every 6 hours as needed for anxiety for up to 10 days. 30 tablet 0 losartan (Cozaar) 25 MG tablet Take 25 mg by mouth in the morning. polyvinyl alcohol (Liquifilm Tears) 1.4 % ophthalmic solution Administer 1 drop into both eyes if needed for dry eyes. sennosides (Senokot) 8.6 MG tablet Take 8.6 mg by mouth in the morning. tiotropium (Spiriva) [address] 18 mcg into inhaler and inhale. REVIEW OF SYSTEMS Pertinent items are noted in HPI. Objective: BP 111/59 Pulse 82 Temp 37.5 C (99.5 F) Resp 18 Ht 1.575 m (5' 2 ) Wt 70.8 kg (156 lb) SpO2 99% PF 48 L/min BMI 28.53 kg/m PHYSICAL EXAM General appearance: in no apparent distress, alert, and cooperative Skin: warm and dry Pulmonary: in no respiratory distress, intubated Lip: 0.6cmx0.5cm. Scab present. No drainage. Periwound fragile Stable Left heel: Blanchable pink tissue. No openings. No drainage. Periwound fragile Left forearm: 1.0cmx2.5cmx0.1cm. Celada tissue noted. Scant serosang drainage. Periwound fragile with bruising. 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 Any questions or concerns please secure chat [facility] wound/ostomy . Thank you for the consult! I personally obtained the starr and critical portions of the history and physical exam. I reviewed the labs, imaging studies, and electronic medical record. I reviewed the chart documentation and discussed the patient with treatment team members. I have edited the note to reflect my clinical findings and my assessment and plan. Please note, the time of this note does not reflect the time I saw this patient today, but the time of this documentaton. Portions of this note including HPI, ROS, impression/plan, and examination may have been copied forward from admission to today as to provide important historical information essential in contributing to medical decision making. Documentation has been reviewed and edited as necessary to support clinical decision making for today's visit and to reflect my own independent evaluation of this patient. Decision making for today's visit and to reflect my own independent evaluation of this patient. 09/30/23 0841 Spontaneous Breathing Trial Weaning Start Time 0841 Weaning Tolerance Poor Weaning Stop Time 0842 Weaning Duration (min) 1 Spontaneous Breathing Trial (SBT) Outcome Respiratory rate less than 8/min - SBT Failure Attempted SBT x2, pt apneic 09/30/23 0316 Wean Screen SpO2>/=88% Yes FiO2</=50% Yes PEEP </=8cmH2O Yes HR <140 BPM Yes RR </= 35 breaths/min Yes MAP >/= 65mmHg Yes Arterial pH >7.30 and <7.50 Yes Safety Screen Spontaneous Breathing Trial (SBT) Proceed with SBT - No exclusion criteria met Images from the original note were not included. OCCUPATIONAL THERAPY [facility] Name/MRN: Luiza May ([id number]) Date: 09/29/2023 Pt not appropriate for therapy at this time, will continue to follow. Lu Magallanes OT ICU Progress Note Name: Luiza May : 1955(67 y.o.) Date: 09/29/23 Team: MICU Attending: Dr. Aguilar Subjective: Hospital Summary: 67F PMH Chronic resp failure s/p trach 07/2022 (reversed a few months later) current 4L home O2, CPAP QHS, HFpEF w/ takotsubo cardiomyopathy, Fall 01/08/2022 resulting in subdural hematoma requiring R crani/evac, prior DVT (07/2022, not on OAC), HTN/HLD, anxiety/depression, alcohol abuse, seizure disorder (on dilantin). Pt initially admitted to OSH 09/24. Prior to arrival there, was reportedly walking in to the bathroom when she started having tonic-clonic seizure activity lasting ~10 minutes, witnessed by fiance, called EMS and taken to OSH. Noted to have subtherapeutic dilantin level - was given keppra. Cont to have AMS, ABG with hypercarbic, pH 7.14, Co2 137 --> was intubated and transferred to [facility] ICU. 09/27: Extubated overnight. Required re-intubation that afternoon d/t hypoxia/increased WOB after getting up to BSC, desat ~65%, improved with BVM - eyes deviated to R -?seizure. Difficult to ventilate, started on versed gtt with improvement. Recent unwitnessed fall 08/05/2023 resulting in subdural hematoma - admitted to [facility]. Aspirin IA'ED at that time. Has not followed up with NSGY d/t location/distance. Interval Events: Pt remains intubated. On 9mg/hr versed, 1.5mcg/kg/hr of precedex - still intermittently waking up. When does wake up becomes agitated but redirectable - however peak pressures up to 40-44. Appears to be answering yes/no questions appropriately. Denies pain. Denies SOB. Keeps mouthing that she wants to go home. Scheduled Meds:aspirin, 81 mg, Oral, Daily atorvastatin, 40 mg, Oral, Nightly budesonide, 0.5 mg, Nebulization, Daily ceFAZolin, 2,000 mg, IntraVENous, q8h DULoxetine, 60 mg, Oral, Daily enoxaparin, 40 mg, SubCUTAneous, Daily folic acid, 1 mg, Oral, Daily ipratropium-albuterol, 3 mL, Nebulization, Q4H levETIRAcetam, 1,000 mg, IntraVENous, BID methylPREDNISolone sod suc (PF), 60 mg, IntraVENous, q12h pantoprazole (ProtoNix) 40 mg in sodium chloride (PF) 0.9 % 10 mL injection, 40 mg, IntraVENous, Nightly artificial tears, 1 drop, Both Eyes, Daily thiamine (Vitamin B1) 100 mg in sodium chloride 0.9 % 100 mL IVPB, 100 mg, IntraVENous, q24h Continuous Infusions:dexmedeTOMIDine, 0.1-1.5 mcg/kg/hr, Last Rate: 1.2 mcg/kg/hr (09/29/23 025) midazolam, 1-10 mg/hr, Last Rate: 7 mg/hr (09/29/23 0117) norepinephrine, 1-20 mcg/min, Last Rate: 1 mcg/min (09/29/23 0128) Objective: Last Vitals: BP MAP 128/56 (09/29/23 06) 76 (09/29/23 06) Arterial BP MAP Temp 37 C (98.6 F) (09/29/23599) Pulse 79 (09/29/23599) Resp 18 (09/29/23599) SpO2 100 % (09/29/23599) Weight 70.8 kg (156 lb) (09/28/23 1046) BMI Body mass index is 28.53 kg/m . I/O: 09/27 07 - 09/28 658 In: 3514.5 [I.V.:3314.5] Out: 3590 [Urine:3590] Oxygen Delivery: 4L NC Invasive Lines / Tubes / Drains: CVC Triple Lumen 09/26/23 Non-tunneled Right Internal jugular (Active) Number of days: 1 NG/OG Tube Orogastric Center mouth (Active) Number of days: 1 Urethral Catheter Temperature probe 18 Fr. (Active) Number of days: 1 ETT 7.5 mm (Active) Number of days: 1 Central Line Indication: Vesicant infusions/medications at high risk of causing extravasation Soliman Indications: Hourly I&Os (Critical Care ONLY) Restraints: Not in restraints Wounds: Wound/Incision 09/26/23 Traumatic Lip Left;Upper (Active) Date First Assessed: 09/26/23 Present on Original Admission: Yes Primary Wound Type: Traumatic Location: Lip Wound Location Orientation: Left;Upper Wound/Incision 09/26/23 Pressure Injury Heel Left (Active) Date First Assessed: 09/26/23 Present on Original Admission: Yes Primary Wound Type: Pressure Injury Location: Heel Wound Location Orientation: Left Pressure Injury Stage: Stage 1 Constitutional: General Appearance [x]WDWN []Obese []Cachectic []Thin []IllMy Note Progress Notes Critical Care 09/29/2023 06:44 AM Eyes: Inspection of Pupils/Irises Pupils round and react: [x]Yes []No Sclera: []Icteric [x]Non-Icteric Inspection of Conjunctiva/Lids Conjunctiva: []Injected [x]Non-Injected Lids: [x]Intact []Lesion Present ENT/Mouth: External Inspection of ears/nose [x] Normal [] Scar/Lesion/Mass Inspection of teeth/lips/gums Dentition: [x][place] Teeth []Dentures Lips/Gums: [x]Intact []Lesion Present Mucosa: [x]Celada []Moist [x]Dry Neck: External Appearance Overall Appearance: [x]Normal []Lesion/Mass/Crepitus Present Trachea midline: [x]Yes []No Thyroid []Normal []Enlarged []Tender []Mass []Absent Respiratory: Respiratory effort []Labored [x]Non-Labored [x] Mechanically-Ventilated Auscultation []Clear []Crackles [x]Wheezes []Rhonchi Cardiovascular: Auscultation Rate: [x]Regular []Irregular [x]Tachycardia []Bradycardia Rhythm: [x]Regular []Irregular Murmur: []Present [x]Absent Extremities Peripheral Edema: []Present [x]Absent Varicosities: []Present [x]Absent Gastrointestinal: Abdomen Palpation: [x]Soft []Firm []Tender [x]Non-Tender []Distended [x]Non-distended Mass: []Present []Absent Bowel Sounds: []Present []Absent Hernia: []Present []Absent Liver/Spleen: []Hepatosplenomegaly []Organomegaly Absent Musculoskeletal: Inspection of Digits and Nails Cyanosis: []Present [x]Absent Clubbing: []Present [x]Absent Ischemia: []Present [x]Absent Infection: []Present [x]Absent Extremities [place] Equally: Except ([]RUE []RLE []LUE []LLE) Strength/Tone: Intact and Normal ([x]RUE [x]RLE [x]LUE [x]LLE) Skin: Inspection [x]Normal []Rash []Lesion []Ulcer Palpation [x]Warm []Cool [x]Dry []Clammy []Nodules []Induration []Skin-tightening Cap-Refill: [x] <3 sec [] >3 seconds (delayed) Neurologic: GCS EYE: 4 - Opens spontaneously GCS MOTOR: 6 - Obeys commands for movement GCS Verbal: 5 Total GCS: 15 [x] Sensation grossly intact Psych: Mental Status Alert: [x]Yes [] No Oriented: []x0 []X1 []X2 [x]x3 Mood/Affect [x]Normal []Flat []Agitated []Depressed []Anxious []Calm []Sedated []NAD [facility] Labs within last 24 hours- BMP: Recent Labs 09/27/23 0516 09/27/23 1924 09/28/23 0639 09/29/23 0558 NA 139 -- 138 138 K 3.6 -- 3.7 3.2* CL 101 -- 106 100 CO2 34* -- 27 30 BUN 14 -- 11 11 CREATININE 0.54 -- 0.46* 0.45* CALCIUM 8.3* -- 8.1* 8.6 MG 1.6 -- 1.9 1.6 PHOS 1.0* 3.9 -- 3.4 LFTs: Recent Labs 09/26/23 1600 09/27/23 0516 09/28/23 0639 AST -- 126* 47* ALT -- 100* 62* PROT -- 5.7* 6.0* ALBUMIN -- 3.1* 3.5 BILITOT -- 0.3 0.6 BILIRUBINU Negative -- -- ALKPHOS -- 150* 101 Glucose: Recent Labs 09/26/23 1600 09/27/23 0516 09/28/23 0639 09/29/23 0558 GLUCOSE 114* 103* 101* 128* Procal: Recent Labs 09/26/23 1600 09/26/231917 PROCAL 0.02 0.03 CBC: Recent Labs 09/27/23 0516 09/27/23 0910 09/28/23 0639 09/28/23 1219 09/28/23 1731 09/29/23 0558 WBC 8.5 -- 6.6 -- -- 8.4 HGB 8.8* -- 7.7* -- 9.1 8.2* HCT 29.1* < > 25.0* 30* -- 25.8* PLT 147 -- 101* -- -- 102* MCV 94.5 -- 92.6 -- -- 90.5 RDW 12.9 -- 13.9 -- -- 13.7 < > = values in this interval not displayed. ABGs: Recent Labs 09/26/23 1542 09/27/23 0910 09/28/23 1219 09/28/23 1731 PHART 7.435 7.501* 7.170* 7.386 CBM4NGH 58.4* 40.9 80.0* 44.0 PO2ART 52.6* 89.2 439.0* 162.5* SMC9MLY 38.3* 31.9* 29.2* 25.8* SO2ART -- 97.6 99.9 -- [id number] 40% Oxygen -- -- 60% Oxygen Lactic Acid: Recent Labs 09/26/23 1600 09/27/23 0953 LACTATE 1.2 1.3 INR: No results for input(s): INR in the last 72 hours. Cardiac Injury Profile: Recent Labs 09/26/23 1600 09/26/23 1918 09/26/23 2243 TROPONINI 0.020 0.019 0.018 Labs in Last 3 months: No results found for: TSH , VITD25 , PSA , INR , GLUF Microbiology- Urine Cx: Lab Results Component Value Date URINECX 07/29/2022 Insignificant growth based on current clinical guidelines Blood Cx: Lab Results Component Value Date BLOODCX No growth at 24 hours 09/27/2023 Sputum Cx: Lab Results Component Value Date RESPCULT Few respiratory ailyn present. 09/27/2023 Gram Stain: Lab Results Component Value Date LABGRAM (A) 09/27/2023 Many Polymorphonuclear leukocytes per low power field LABGRAM Rare Epithelial cells per low power field (A) 09/27/2023 LABGRAM Moderate Gram positive bacilli (A) 09/27/2023 LABGRAM Few Gram positive cocci (A) 09/27/2023 PNA PCR: Lab Results Component Value Date HUMANMETAPNE Not Detected 09/27/2023 COVID19: No results found for: COVID19 Legionella Ag: Lab Results Component Value Date LEGIONELLAPN Not Detected 09/27/2023 Strep Ag: No results for input(s): STREPPNEUMO in the last 72 hours. Imaging- 09/27 MRI brain MRI Brain 09/27/23: IMPRESSION: 1. Areas of encephalomalacia in the right occipital and high left posterior parietal lobes with peripheral hemosiderin deposition consistent with remote infarcts or brain injury with prior peripheral hemorrhage. 2. Small area of encephalomalacia in the high right frontoparietal cortex and questionably the posterior aspect of the right hemisphere without hemosiderin deposition consistent with small remote infarcts or brain injury. 3. Nonspecific white matter hyperintensities most likely related to chronic ischemia and/or small vessel disease. 4. No evidence of acute ischemic disease or other acute or significant intracranial abnormality. 5. Prior large right craniotomy. 6. Acute right sphenoid sinusitis 7. Mild bilateral ethmoid and minimal left frontal sinus disease likely chronic. 09/26 CTA chest IMPRESSION: Minimal bilateral pleural effusions and adjacent slight infiltrate or atelectasis. 09/27 tte Left Ventricle: Left ventricle size is normal. Normal wall thickness. Mildly reduced left ventricular systolic function. The EF by visual approximation is 45%. Abnormal wall motion. There appears to be global hypokinesis, worse in apical segments. Right Ventricle: Right ventricle size is normal. Normal systolic function. Mitral Valve: Moderate (2+) regurgitation with a posterior directed jet. Left Atrium: Left atrium is severely dilated. LA Vol Index A/L is 50 mL/m2. No significant valvular abnormalities. Technically difficult study. Assessment and Plan: Acute on chronic hypoxic/hypercarbic resp failure ?bilateral infiltrate - likely aspiration in setting of seizures vs HAP COPD Hx prior trach/peg (07/2022, reversed shortly after per family) -Initial intubation for 2 days, extubated and required intubation again after around 12 hours. Had increased WOB/hypoxia yesterday into 60s requiring re-intubation. Steroids increased to 60mg Q12H. Cont cefazolin. CXR pending for today. Cont nebs. Requiring versed 9mg/hr and max precedex for sedation. When wakes up is anxious and has high peak pressures ~40-44. Plan to keep sedated for today and re-eval tomorrow. If needing further sedation would add ketamine. Vistaril Q6H PRN. Needs discussions regarding whether would want trach again - palliative consulted. Seizures (known history CHRO) -?seizure activity yesterday prior to re-intubation, was hypercarbic - deviated to the R, minimally responsive. Mairaanticourtney Dc'ed, started on keppra on admission - will cont keppra outpatient if tolerates, hope with decreased dosing will increase compliance. NeuroCC following. -per family 1st seizure in 07/2022 and has not had recurrence since. Was told likely r/t hypercarbia. Sepsis -likely pulm source. Afebrile, procal negative. Abx de-escalated. Resp PCR negative, PNA PCR +MSSA/resp culture pending. Remains on low dose levo but suspect more sedation induced rather than sepsis. Transaminitis -?shock vs other. Was hypotensive on arrival, off levo. Follow for now. No abd pain. If not improving could consider RUQ US. Normocytic anemia Thrombocytopenia -hgb 8.2, stable. Plt 102, overall down but stable from yesterday. No signs of bleeding. Likely dilutional / mixed with sepsis. If cont to downtrend can send studies. 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 Anxiety RLS -Restarted home meds : duloxetine 60mg daily, lexapro 10mg. At recent visit prescribed gabapentin 300mg nightly, has not started taking yet. Prior alcohol abuse -sober for at least 2-3 years per family. Ethanol and ethyl gluc negative. Folic acid, thiamine. GI Prophylaxis: Pantoprazole IV DVT Prophylaxis: Lovenox 40 q 24hr - creatinine clearance >30 Disposition: Remain in ICU Status Critical Care Time: 35 minutes Total critical care time caring for this patient with life threatening, unstable organ failure, including direct patient contact, management of life support systems, review of data including imaging and labs, discussions with other team members and physicians, excluding procedures. 09/28/23 1754 Wean Screen PEEP </=8cmH2O No Images from the original note were not included. PHYSICAL THERAPY [facility] Name/MRN: Luiza May ([id number]) Date: 09/28/2023 PT orders received. Pt had to be re-intubated and sedated this AM. Will hold PT and continue to follow with PT screens. Kadi Mcneal PT Speech-Language Pathology Received orders for a speech evaluation and treat. Patient is currently intubated and unable to participate. Completed orders and await re-consult 12- 24 hours post-extubation. Vianca Sharif MA CCC-BELT REPAIRER 09/28/23 1226 Patient Parameters Ventilator On Yes Vent ID [id number] Patient position Semi fowlers (30-45 ) Heart Rate (!) 147 Resp 18 SpO2 100 % Breath sounds (right) Diminished Breath sounds (left) Diminished Skin Assessment Clean, dry, intact Secretion Color Bloody Secretion Consistency Frothy Respiratory Interventions Respiratory Interventions Performed Airway suction Suctioning/Secretions Secretion Amount Small Suction Device Inline catheter Suctioning Adverse Effects None Suction Type Endotracheal Suction Tolerance Tolerated well ETT 7.5 mm Placement Date: 09/26/23 ETT Type: ETT - single Single Lumen Tube Size: 7.5 mm Location: Oral Secured at (cm) 23 cm Measured from Lips Secured Location Center Secured by Commercial tube [email or web address] Site Condition Dry Airway Interventions Safety Equipment at Bedside Bag Valve Mask Settings Humidification Heater Heater Temperature 37 C (98.6 F) Equipment Changed Suction catheter Vent Mode A/C Mandatory Type PC Resp Rate (Set) 18 IP Set (cm H2O) 27 cm H2O FiO2 (%) 40 % PEEP/CPAP (cm H2O) 8 cm H20 Sensitivity 3 Inspiratory Time (sec) 0.9 sec Rise Time (%) 70 % Readings PIP Observed (cm H2O) 35 cm H2O MAP (cm H2O) 15 Resp Rate Observed 18 Vt (observed, mL) 298 mL Minute Ventilation (L/min) 5.28 L/min I:E Ratio 1:2.7 Plateau Pressure (cm H2O) 28 cm H2O Dynamic Compliance (L/cm H2O) 20 L/cm H2O Static Compliance (L/cm H2O) 15 Airway Resistance 42 Total PEEP (cm H2O) 6.8 cm H2O Alarms High RR Alarm 40 breaths per minute Insp Pressure High (cm H2O) 45 cm H2O MV High (L/min) 20 L/min MV Low (L/min) 2 L/min Vt High (marcellus) (mL) 1000 mL Vt Low (marcellus) (mL) 200 mL Vt High (spont) (mL) 1000 mL Vt Low (spont) (mL) 200 mL Apnea Interval (sec) 20 seconds Wean Screen Safety Screen Spontaneous Breathing Trial (SBT) Lack of inspiratory effort Afternoon ICU update: Attempted to get up to BSC with nursing. Became very anxious, stated she did not feel well and was noted to be hypoxic. Placed back in bed, cyanotic. Pulse ox reading ~65%. Attempted NIV by RT with no increase in volumes, did BVM with increase in sat to 95%. Pt minimally responsive. Staring to the right. ?Seizure. Intubated for airway protection/hypoxia. See procedure note. Attempted AC/VC+, high peak pressures ~40-42, plat 28. Switched to PC with insp pressure 27, plat 28, Vt ~320, minute ventilation ~6.2. Will repeat ABG in 1-2 hours. Precedex for sedation. Images from the original note were not included. [facility] Progress Note Luiza May AGE: 67 y.o. GENDER: female : 1955 Subjective: HISTORY of PRESENT ILLNESS HPI Luiza May is a 67 y.o. female who presents for a wound care follow up. HPI: Ms. May is a 67yo F with PMHx of COPD with Chronic Hypoxic respiratory failure on 2L of Oxygen and BiPAP at night (poor compliance) s/p tracheostomy (2022), HFpEF with Takotsubo Cardiomyopathy, CVA with chronic dysphagia and aspiration on altered diet with prior PEG tube (2022), hemorrhagic CVA s/p Surgical intervention at [facility] (2021), GERD, h/o VTE, Hypertension, depression, anxiety, h/o Breast Cancer, former EtOH abuse, Seizure disorder on Dilantin was sent to [facility] from [facility] for management of Encephalopathy secondary to Acute on chronic Hypoxic Hypercapnic respiratory failure and what seem to be a break through seizure. Wound Care consulted for left heel, left forearm and lip. Patient resting in bed at time of visit. Dressings intact. Medical team present at bedside. PAST MEDICAL HISTORY Past Medical History: Diagnosis Date Asthma CAD (coronary artery disease) Cerebral artery occlusion with cerebral infarction (CMS/HCC) (HCC) COPD (chronic obstructive pulmonary disease) (HCC) Hypertension PAST SURGICAL HISTORY Past Surgical History: Procedure Laterality Date APPENDECTOMY CHOLECYSTECTOMY COLONOSCOPY COLONOSCOPY CT CHEST ANGIOGRAM W AND/OR WO IV CONTRAST 07/26/2022 CT CHEST ANGIOGRAM W AND/OR WO IV CONTRAST 07/26/[address] [facility] [address] IMAGING FAMILY HISTORY No family history on file. SOCIAL HISTORY Social History Tobacco Use Smoking status: Former Types: Cigarettes Quit date: 07/13/2013 Years since quittin.2 Vaping Use Vaping Use: Never used Substance Use Topics Alcohol use: No Drug use: No ALLERGIES Allergies Allergen Reactions Tetanus Toxoid Swelling MEDICATIONS No current facility-administered medications on file prior to encounter. Current Outpatient Medications on File Prior to Encounter Medication Sig Dispense Refill albuterol 108 (90 Base) MCG/ACT inhaler Inhale 2 puffs as needed. 4 times daily as needed ARIPiprazole (Abilify) 2 MG tablet Take 2 mg by mouth in the morning. atorvastatin (Lipitor) 40 MG tablet Take 1 tablet by mouth Nightly. bisacodyl (Dulcolax) 10 MG suppository Insert 10 mg into the rectum Daily as needed. budesonide (Pulmicort) 0.5 MG/2ML nebulizer solution Take 2 mL (0.5 mg) by nebulization in the morning. Rinse mouth with water after use to reduce aftertaste and incidence of candidiasis. Do not swallow.. Do not start before August 05, 2022. 60 mL 11 cholecalciferol (Vitamin D-3) 25 MCG (1000 UT) capsule Take 1,000 Units by mouth in the morning. DULoxetine (Cymbalta) [address] capsule Take 60 mg by mouth in the morning. folic acid (Folvite) 1 MG tablet Take 1 mg by mouth in the morning. hydrogen peroxide 3 % external solution Apply topically as needed (Trach care). levalbuterol (Xopenex) 1.25 MG/3ML nebulizer solution Take 3 mL (1.25 mg) by nebulization in the morning and 3 mL (1.25 mg) at noon and 3 mL (1.25 mg) in the evening. 0 LORazepam (Ativan) 0.5 MG tablet Take 1 tablet (0.5 mg) by mouth every 6 hours as needed for anxiety for up to 10 days. 30 tablet 0 losartan (Cozaar) 25 MG tablet Take 25 mg by mouth in the morning. polyvinyl alcohol (Liquifilm Tears) 1.4 % ophthalmic solution Administer 1 drop into both eyes if needed for dry eyes. sennosides (Senokot) 8.6 MG tablet Take 8.6 mg by mouth in the morning. tiotropium (Spiriva) [address] 18 mcg into inhaler and inhale. REVIEW OF SYSTEMS Pertinent items are noted in HPI. Objective: BP 130/51 Pulse (!) 147 Temp 37 C (98.6 F) Resp 18 Ht 1.575 m (5' 2 ) Wt 70.8 kg (156 lb) SpO2 100% PF 48 L/min BMI 28.53 kg/m PHYSICAL EXAM General appearance: in no apparent distress, alert, and cooperative Skin: warm and dry Pulmonary: in no respiratory distress, intubated Lip: 0.6cmx0.5cm. Scab present. No drainage. Periwound fragile Left heel: Blanchable pink tissue. No openings. No drainage. Periwound fragile Left forearm: 1.0cmx2.5cmx0.1cm. Celada tissue noted. Scant serosang drainage. Periwound fragile with bruising. LABS CBC: Lab Results Component Value Date WBC 6.6 09/28/2023 HGB 7.7 (L) 09/28/2023 HGB 10.4 09/26/2023 HCT 30 (L) 09/28/2023 HCT 25.0 (L) 09/28/2023 MCV 92.6 09/28/2023 PLT 101 (L) 09/28/2023 BMP: Lab Results Component Value Date NA 138 09/28/2023 K 3.7 09/28/2023 CL 106 09/28/2023 CO2 27 09/28/2023 PHOS 3.9 09/27/2023 BUN 11 09/28/2023 CREATININE 0.46 (L) 09/28/2023 PT/INR: No results found for: PROTIME , INR Prealbumin: No results found for: PREALBUMIN Albumin:No components found for: LABALBU Sed Rate:No results found for: SEDRATE Micro: No components found for: BC Assessment/Plan: Lip: Abrasion - 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 Any questions or concerns please secure chat [facility] wound/ostomy . Thank you for the consult! I personally obtained the starr and critical portions of the history and physical exam. I reviewed the labs, imaging studies, and electronic medical record. I reviewed the chart documentation and discussed the patient with treatment team members. I have edited the note to reflect my clinical findings and my assessment and plan. Please note, the time of this note does not reflect the time I saw this patient today, but the time of this documentaton. Portions of this note including HPI, ROS, impression/plan, and examination may have been copied forward from admission to today as to provide important historical information essential in contributing to medical decision making. Documentation has been reviewed and edited as necessary to support clinical decision making for today's visit and to reflect my own independent evaluation of this patient. Decision making for today's visit and to reflect my own independent evaluation of this patient. PROGRESS NOTE: NEUROCRITICAL CARE Patient Name:Luiza May Patient : 1955 Chief complaint: Seizure Hospital Summary: 67F PMH COPD (2L), previous trach, HFpEF, CREST syndrome, stroke with residual dysphagia (previous PEG), breast cancer, HTN, depression, recent traumatic parafalcine SDH Aug 2023 presented to OSH 09/25 with GTC seizures. Found to have respiratory failure as well (pH 7.14, pCO2 137), placed on NIV and ended up intubated. Dilantin level reported to be subtherapeutic. Transferred to [facility] for further care. Limited history regarding seizures. Per family, 1st time seizure in ?Jun 2022 in setting of hypoxia and elevated CO2 levels in which pt did not wear her bipap at night and has been on Dilantin since. No neuro follow up. Interval History: Extubated. On precedex and levophed. Diet/TF:NPO VTE prophylaxis: YES Lovenox Medications: Scheduled Meds: [Held by provider] ARIPiprazole, 2 mg, Oral, Daily aspirin, 81 mg, Oral, Daily atorvastatin, 40 mg, Oral, Nightly budesonide, 0.5 mg, Nebulization, Daily cefTRIAXone, 1,000 mg, IntraVENous, q24h [Held by provider] DULoxetine, 60 mg, Oral, Daily enoxaparin, 40 mg, SubCUTAneous, Daily folic acid, 1 mg, Oral, Daily ipratropium-albuterol, 3 mL, Nebulization, TID levETIRAcetam, 1,000 mg, IntraVENous, BID methylPREDNISolone sod suc (PF), 40 mg, IntraVENous, q24h pantoprazole (ProtoNix) 40 mg in sodium chloride (PF) 0.9 % 10 mL injection, 40 mg, IntraVENous, Nightly artificial tears, 1 drop, Both Eyes, Daily thiamine (Vitamin B1) 100 mg in sodium chloride 0.9 % 100 mL IVPB, 100 mg, IntraVENous, q24h PRN Meds: PRN medications: acetaminophen, bisacodyl, fentaNYL, LORazepam, naloxone, ondansetron ODT OR ondansetron, polyethylene glycol (PEG) 3350, Propylene Glycol-Glycerin, sodium chloride Allergies: Tetanus toxoid Review of Systems Denies complaints Telemetry: Arrhythmia:No Physical Examination: Patient Vitals for the past 8 hrs: BP Temp Pulse Resp SpO2 Weight 09/28/23 0730 126/70 37.2 C (99 F) 70 (!) 28 100 % -- 09/28/23 0715 126/66 37.3 C (99.1 F) 75 (!) 27 100 % -- 09/28/23 0700 126/69 37.3 C (99.1 F) 75 (!) 28 100 % -- 09/28/23 0645 122/78 37.3 C (99.1 F) 80 22 100 % -- 09/28/23 0630 115/64 37.3 C (99.1 F) 73 (!) 29 100 % -- 09/28/23 0615 110/66 37.4 C (99.3 F) 75 (!) 27 100 % -- 09/28/23 0600 119/56 37.3 C (99.1 F) 76 (!) 27 100 % 71 kg (156 lb 8.4 oz) 09/28/23 0545 114/56 37.3 C (99.1 F) 77 (!) 27 100 % -- 09/28/23 0530 (!) 122/41 37.3 C (99.1 F) 89 24 100 % -- 09/28/23 0515 110/65 37.3 C (99.1 F) 73 (!) 27 100 % -- 09/28/23 0500 112/50 37.2 C (99 F) 78 (!) 26 100 % -- 09/28/23 0430 115/73 37.3 C (99.1 F) 83 22 100 % -- 09/28/23 0415 113/55 37.3 C (99.1 F) 84 24 100 % -- 09/28/23 0400 108/60 37.3 C (99.1 F) 85 24 99 % -- 09/28/23 0345 117/51 37.4 C (99.3 F) 83 (!) 28 100 % -- 09/28/23 0330 125/67 37.5 C (99.5 F) 98 20 100 % -- 09/28/23 0315 (!) 112/45 37.6 C (99.7 F) 83 25 100 % -- 09/28/23 0300 117/63 37.6 C (99.7 F) 87 24 100 % -- 09/28/23 0245 121/79 37.6 C (99.7 F) 93 (!) 29 100 % -- 09/28/23 0230 128/73 37.5 C (99.5 F) 83 13 100 % -- 09/28/23 0215 111/69 37.4 C (99.3 F) 91 (!) 26 100 % -- 09/28/23 0200 125/65 37.4 C (99.3 F) 93 22 100 % -- 09/28/23 0145 133/66 37.3 C (99.1 F) 86 14 100 % -- 09/28/23 0130 117/82 37.3 C (99.1 F) 84 14 100 % -- 09/28/23 0115 133/56 37.3 C (99.1 F) 85 15 99 % -- 09/28/23 0100 127/67 37.2 C (99 F) 83 14 99 % -- 09/28/23 0045 121/62 37.2 C (99 F) 87 14 100 % -- 09/28/23 0030 125/58 37.2 C (99 F) 84 14 98 % -- 09/28/23 0015 126/64 37.3 C (99.1 F) 85 14 98 % -- 09/28/23 0000 125/57 37.2 C (99 F) 86 14 97 % -- 09/27/23 2345 127/81 37.3 C (99.1 F) 98 18 100 % -- I/O last 3 completed shifts: In: 5208.5 (73.4 mL/kg) [I.V.:4038.5 (56.9 mL/kg); NG/GT:90; IV Piggyback:1080] Out: 2761 (38.9 mL/kg) [Urine:2761 (1.1 mL/kg/hr)] Weight: 71 kg General Physical Examination: General: awake in bed HEENT:Normocephalic, atraumaticl CV: S1+S2, RRR, no MRG. Pulm: diminished Abdomen: Soft NT/ND. BS + Skin: Intact without ulcers, breakdowns or discoloration Extremities: normal with no edema or cyanosis Orthopedic limitation; No Pulses: Intact peripherally Carotid auscultation :No bruits Neurological Examination: Higher Functions: Mental Status Exam: Level of Alertness:Awake Orientation: A&Ox2-3 Memory: appears normal Fund of Knowledge: appears normal Language: normal Dysarthria Not present Cranial Nerves: -II Visual acuity: normal -II Visualfields: normal -III Pupils (~ 3 mm OD, 3 mm OU) equal, round, reactive to light -III-IV- Extraocular Movements: intact -Nystagmus not present -Saccades and pursuits normal -V Facial sensation: intact Corneal's Intact bilateral -VII Facial strength:intact -VIII Hearing: intact -IX-X - Gag reflex present -X Palate: intact -XI Shoulder shrug: intact -XII Tongue movement: not participant MotorExamination: Tone after evaluation of 4 limbs, the following findings applied: Normal -Bulk: normal -Muscle Stretch afterevaluation of all limbs, and axial musculature the following findings applied: Drift: absent normal -Reflexes: after evaluation of 4 limbs, the following findings applied ; normal all limbs -Plantar responce: Flexor bilaterally Sensory Normal Coordination: Arms Normal finger to nose Legs patient unable to perform test due to sedation, paralysis or limb orthopediccircumstances Tremors not present Gait abnormal, patient unable to walk due to acute circumstances / bed rest / safety concerns ANCILLARY Cardiac testing: EKG: SR TTE: Left Ventricle: Left ventricle size is normal. Normal wall thickness. Mildly reduced left ventricular systolic function. The EF by visual approximation is 45%. Abnormal wall motion. There appears to be global hypokinesis, worse in apical segments. Right Ventricle: Right ventricle size is normal. Normal systolic function. Mitral Valve: Moderate (2+) regurgitation with a posterior directed jet. Left Atrium: Left atrium is severely dilated. LA Vol Index A/L is 50 mL/m2. No significant valvular abnormalities. Technically difficult study. Radiology/imaging personal review: EEG: IMPRESSION AND ACTIONS TAKEN: This routine EEG with video is abnormal. Continuous RIGHT hemisphere predominant generalized slowing is seen with intermixed fast frequencies. This activity is not responsive to stimulation. No epileptiform activity nor seizures are observed. No sleep architecture is captured. The findings are consistent with with RIGHT hemisphere predominant dysfunction supportive of a breach rhythm (as seen through a skull defect) superimposed on a [id number] global encephalopathy. CT Head 09/27/23: No acute findings. MRI Brain 09/27/23: IMPRESSION: 1. Areas of encephalomalacia in the right occipital and high left posterior parietal lobes with peripheral hemosiderin deposition consistent with remote infarcts or brain injury with prior peripheral hemorrhage. 2. Small area of encephalomalacia in the high right frontoparietal cortex and questionably the posterior aspect of the right hemisphere without hemosiderin deposition consistent with small remote infarcts or brain injury. 3. Nonspecific white matter hyperintensities most likely related to chronic ischemia and/or small vessel disease. 4. No evidence of acute ischemic disease or other acute or significant intracranial abnormality. 5. Prior large right craniotomy. 6. Acute right sphenoid sinusitis 7. Mild bilateral ethmoid and minimal left frontal sinus disease likely chronic. ASSESSMENT / PLAN/RECOMMENDATIONS: Breakthrough GTC seizure - In setting of subtherapeutic dilantin levels as well as hypoxia/hypercarbia. No new findings on MRI. - Dilantin stopped, continue Keppra 1000mg BID - Maintain seizure precautions - Follow up with OP neurology Acute on chronic respiratory failure/COPD - s/p extubation - Per ICU team History of bi-hemispheric strokes (MCA) - Continue ASA 81, Atorvastatin 40 - TTE as above - Consider OP event monitor per PCP/OP neurology HFrEF/dilated LA - Suggest cardiology follow up OP Recent traumatic SDH - Pt to follow up with OP NSGY HCAP - Abx History of ETOH use - Thiamine, folic acid Anemia - Monitor Sepsis/hypotension - On pressors - Per ICU team Discussed with family at bedside. Will sign off. Please call with questions. 28 minutes of my independent time was spent preparing to see the patient, obtaining/reviewing separately obtained history, completing an appropriate medical examination of the patient, ordering medications/tests/procedures, documenting clinical information on the EMR, and/or coordinating care. Discussed with Dr. Flores Vancomycin therapy has been discontinued by Mildred Smith on 09/27. Thank you for the consult. Pharmacy signing off for vancomycin dosing. Kayla Taylor [facility], PharmD Date: 09/28/23 Time: 6:53 AM ICU Progress Note Name: Luiza May : 1955(67 y.o.) Date: 09/28/23 Team: MICU Attending: Dr. Aguilar Subjective: Hospital Summary: 67F PMH Chronic resp failure s/p trach 07/2022 (reversed a few months later) current 4L home O2, CPAP QHS, HFpEF w/ takotsubo cardiomyopathy, Fall 01/08/2022 resulting in subdural hematoma requiring R crani/evac, prior DVT (07/2022, not on OAC), HTN/HLD, anxiety/depression, alcohol abuse, seizure disorder (on dilantin). Pt initially admitted to OSH 09/24. Prior to arrival there, was reportedly walking in to the bathroom when she started having tonic-clonic seizure activity lasting ~10 minutes, witnessed by bertha, called EMS and taken to OSH. Noted to have subtherapeutic dilantin level - was given keppra. Cont to have AMS, ABG with hypercarbic, pH 7.14, Co2 137 --> was intubated and transferred to [facility] ICU. Recent unwitnessed fall 08/05/2023 resulting in subdural hematoma - admitted to [facility]. Apollo IA'ED at that time. Has not followed up with NSGY d/t location/distance. Interval Events: Extubated overnight after MRI to NIV. Taken off NIV this morning to [place] and tolerating well. Denies SOB. On home 4L. States she slept good throughout the night. A&OX4 but intermittently with some confusion. Does have some bruising noted to top of R foot, c/o some pain with palpation but no pain with movement. Addendum: Attempted to get up to BSC with nursing. Became very anxious, stated she did not feel well and was noted to be hypoxic. Placed back in bed, cyanotic. Pulse ox reading ~65%. Attempted NIV by RT with no increase in volumes, did BVM with increase in sat to 95%. Pt minimally responsive. Staring to the right. ?Seizure. Intubated for airway protection/hypoxia. See procedure note. Attempted AC/VC+, high peak pressures ~40-42, plat 28. Switched to PC with insp pressure 27, plat 28, Vt ~320, minute ventilation ~6.2. Will repeat ABG in 1-2 hours. Precedex/versed for sedation. Lung sounds tight, increased steroids to 50mg Q12H. Scheduled Meds:ARIPiprazole, 2 mg, Oral, Daily aspirin, 81 mg, Oral, Daily atorvastatin, 40 mg, Oral, Nightly budesonide, 0.5 mg, Nebulization, Daily cefTRIAXone, 1,000 mg, IntraVENous, q24h DULoxetine, 60 mg, Oral, Daily enoxaparin, 40 mg, SubCUTAneous, Daily folic acid, 1 mg, Oral, Daily ipratropium-albuterol, 3 mL, Nebulization, TID levETIRAcetam, 1,000 mg, IntraVENous, BID methylPREDNISolone sod suc (PF), 40 mg, IntraVENous, q24h pantoprazole (ProtoNix) 40 mg in sodium chloride (PF) 0.9 % 10 mL injection, 40 mg, IntraVENous, Nightly artificial tears, 1 drop, Both Eyes, Daily thiamine (Vitamin B1) 100 mg in sodium chloride 0.9 % 100 mL IVPB, 100 mg, IntraVENous, q24h Continuous Infusions:dexmedeTOMIDine, 0.1-1.5 mcg/kg/hr, Last Rate: 0.5 mcg/kg/hr (09/28/23747) norepinephrine, 1-20 mcg/min, Last Rate: 0.5 mcg/min (09/28/23748) Objective: Last Vitals: BP MAP 126/70 (09/28/23729) 86 (09/28/23729) Arterial BP MAP Temp 37.2 C (99 F) (09/28/23729) Pulse 70 (09/28/23729) Resp (!) 28 (09/28/23729) SpO2 100 % (09/28/23729) Weight 71 kg (156 lb 8.4 oz) (09/28/23599) BMI Body mass index is 28.62 kg/m . I/O: 09/26 699 - 09/27 658 In: 3569 [I.V.:2489] Out: 1860 [Urine:1860] Oxygen Delivery: 4L NC Invasive Lines / Tubes / Drains: CVC Triple Lumen 09/26/23 Non-tunneled Right Internal jugular (Active) Number of days: 1 NG/OG Tube Orogastric Center mouth (Active) Number of days: 1 Urethral Catheter Temperature probe 18 Fr. (Active) Number of days: 1 ETT 7.5 mm (Active) Number of days: 1 Central Line Indication: Vesicant infusions/medications at high risk of causing extravasation [place]iman Indications: Hourly I&Os (Critical Care ONLY) Restraints: Not in restraints Wounds: Wound/Incision 09/26/23 Traumatic Lip Left;Upper (Active) Date First Assessed: 09/26/23 Present on Original Admission: Yes Primary Wound Type: Traumatic Location: Lip Wound Location Orientation: Left;Upper Wound/Incision 09/26/23 Pressure Injury Heel Left (Active) Date First Assessed: 09/26/23 Present on Original Admission: Yes Primary Wound Type: Pressure Injury Location: Heel Wound Location Orientation: Left Pressure Injury Stage: Stage 1 Constitutional: General Appearance [x]WDWN []Obese []Cachectic []Thin []Ill Eyes: Inspection of Pupils/Irises Pupils round and react: [x]Yes []No Sclera: []Icteric [x]Non-Icteric Inspection of Conjunctiva/Lids Conjunctiva: []Injected [x]Non-Injected Lids: [x]Intact []Lesion Present ENT/Mouth: External Inspection of ears/nose [x] Normal [] Scar/Lesion/Mass Inspection of teeth/lips/gums Dentition: [x][place] Teeth []Dentures Lips/Gums: [x]Intact []Lesion Present Mucosa: [x][place]el[place] []Moist [x]Dry Neck: External Appearance Overall Appearance: [x]Normal []Lesion/Mass/Crepitus Present Trachea midline: [x]Yes []No Thyroid []Normal []Enlarged []Tender []Mass []Absent Respiratory: Respiratory effort []Labored [x]Non-Labored [] Mechanically-Ventilated Auscultation [x]Clear []Crackles []Wheezes []Rhonchi Cardiovascular: Auscultation Rate: [x]Regular []Irregular [x]Tachycardia []Bradycardia Rhythm: [x]Regular []Irregular Murmur: []Present [x]Absent Extremities Peripheral Edema: []Present [x]Absent Varicosities: []Present [x]Absent Gastrointestinal: Abdomen Palpation: [x]Soft []Firm []Tender [x]Non-Tender []Distended [x]Non-distended Mass: []Present []Absent Bowel Sounds: []Present []Absent Hernia: []Present []Absent Liver/Spleen: []Hepatosplenomegaly []Organomegaly Absent Musculoskeletal: Inspection of Digits and Nails Cyanosis: []Present [x]Absent Clubbing: []Present [x]Absent Ischemia: []Present [x]Absent Infection: []Present [x]Absent Extremities REGALADO Equally: Except ([]RUE []RLE []LUE []LLE) Strength/Tone: Intact and Normal ([x]RUE [x]RLE [x]LUE [x]LLE) Skin: Inspection [x]Normal []Rash []Lesion []Ulcer Palpation [x]Warm []Cool [x]Dry []Clammy []Nodules []Induration []Skin-tightening Cap-Refill: [x] <3 sec [] >3 seconds (delayed) Neurologic: GCS EYE: 4 - Opens spontaneously GCS MOTOR: 6 - Obeys commands for movement GCS Verbal: 5 Total GCS: 15 [x] Sensation grossly intact Psych: Mental Status Alert: [x]Yes [] No Oriented: []x0 []X1 []X2 [x]x3 Mood/Affect [x]Normal []Flat []Agitated []Depressed []Anxious []Calm []Sedated []NAD Select Labs within last 24 hours- BMP: Recent Labs 09/26/23 1600 09/27/23 0516 09/27/23 1924 09/28/23 0639 NA 142 139 -- 138 K 4.2 3.6 -- 3.7 CL 101 101 -- 106 CO2 40* 34* -- 27 BUN 16 14 -- 11 CREATININE 0.50* 0.54 -- 0.46* CALCIUM 8.1* 8.3* -- 8.1* MG 1.7 1.6 -- 1.9 PHOS 0.9* 1.0* 3.9 -- LFTs: Recent Labs 09/26/23 1600 09/27/23 0516 AST -- 126* ALT -- 100* PROT -- 5.7* ALBUMIN -- 3.1* BILITOT -- 0.3 BILIRUBINU Negative -- ALKPHOS -- 150* Glucose: Recent Labs 09/26/23 1600 09/27/23 0516 09/28/23 0639 GLUCOSE 114* 103* 101* Procal: Recent Labs 09/26/23 1600 09/26/23 1918 PROCAL 0.02 0.03 CBC: Recent Labs 09/26/23 1600 09/27/23 0516 09/27/23 0910 09/28/23 0639 WBC 8.3 8.5 -- 6.6 HGB 9.1* 8.8* -- 7.7* HCT 31.5* 29.1* 30* 25.0* PLT 135* 147 -- 101* MCV 97.5 94.5 -- 92.6 RDW 12.8 12.9 -- 13.9 ABGs: Recent Labs 09/26/23 1542 09/27/23 0910 PHART 7.435 7.501* [id number] 58.4* 40.9 PO2ART 52.6* 89.2 [id number] 38.3* 31.9* SO2ART -- 97.6 [id number] 40% Oxygen -- Lactic Acid: Recent Labs 09/26/23 1600 09/27/23 0953 LACTATE 1.2 1.3 INR: No results for input(s): INR in the last 72 hours. Cardiac Injury Profile: Recent Labs 09/26/23 1600 09/26/23 1918 09/26/23 2243 TROPONINI 0.020 0.019 0.018 Labs in Last 3 months: No results found for: TSH , VITD25 , PSA , INR , GLUF Microbiology- Urine Cx: Lab Results Component Value Date URINECX 07/29/2022 Insignificant growth based on current clinical guidelines Blood Cx: Lab Results Component Value Date BLOODCX Blood culture incubation started 09/27/2023 Sputum Cx: Lab Results Component Value Date RESPCULT Few respiratory ailyn present. 09/27/2023 Gram Stain: Lab Results Component Value Date LABGRAM (A) 09/27/2023 Many Polymorphonuclear leukocytes per low power field LABGRAM Rare Epithelial cells per low power field (A) 09/27/2023 LABGRAM Moderate Gram positive bacilli (A) 09/27/2023 LABGRAM Few Gram positive cocci (A) 09/27/2023 PNA PCR: Lab Results Component Value Date HUMANMETAPNE Not Detected 09/27/2023 COVID19: No results found for: COVID19 Legionella Ag: Lab Results Component Value Date LEGIONELLAPN Not Detected 09/27/2023 Strep Ag: No results for input(s): STREPPNEUMO in the last 72 hours. Imaging- 09/27 MRI brain MRI Brain 09/27/23: IMPRESSION: 1. Areas of encephalomalacia in the right occipital and high left posterior parietal lobes with peripheral hemosiderin deposition consistent with remote infarcts or brain injury with prior peripheral hemorrhage. 2. Small area of encephalomalacia in the high right frontoparietal cortex and questionably the posterior aspect of the right hemisphere without hemosiderin deposition consistent with small remote infarcts or brain injury. 3. Nonspecific white matter hyperintensities most likely related to chronic ischemia and/or small vessel disease. 4. No evidence of acute ischemic disease or other acute or significant intracranial abnormality. 5. Prior large right craniotomy. 6. Acute right sphenoid sinusitis 7. Mild bilateral ethmoid and minimal left frontal sinus disease likely chronic. 09/26 CTA chest IMPRESSION: Minimal bilateral pleural effusions and adjacent slight infiltrate or atelectasis. Assessment and Plan: Acute on chronic hypoxic/hypercarbic resp failure ?bilateral infiltrate - likely aspiration in setting of seizures vs HAP COPD Hx prior trach/peg (07/2022, reversed shortly after per family) -Extubated overnight to NIV after MRI. Trialed off NIV this am, on home 4L tolerating well. PNA PCR +MSSA. Cefepime de-escalated to cefazolin per ID stewardship. DC vanc. Cont nebs. Solumedrol for 5 day course for COPD. BELT REPAIRER eval. Seizures (known history CHRO) -Dilantin Dc'ed, started on keppra on admission - will cont keppra outpatient if tolerates, hope with decreased dosing will increase compliance. NeuroCC following. -per family 1st seizure in 07/2022 and has not had recurrence since. Was told likely r/t hypercarbia. Sepsis -likely pulm source. Afebrile, procal negative. Abx de-escalated. Resp PCR negative, PNA PCR +MSSA/resp culture pending. Remains on low dose levo but suspect more sedation induced rather than sepsis. Transaminitis -?shock vs other. Was hypotensive on arrival, still requiring some low dose levo. Follow for now. No abd pain. If not improving could consider RUQ US. Normocytic anemia Thrombocytopenia -hgb 7.7, slow downtrend. Plt 101, also slow downtrend. No signs of bleeding. Likely dilutional / mixed with sepsis. If still downtrending tomorrow can send studies. 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 At recent visit prescribed gabapentin 300mg nightly, has not started taking yet. Prior alcohol abuse -sober for at least 2-3 years per family. Ethanol and ethyl gluc negative. Folic acid, thiamine. GI Prophylaxis: Pantoprazole IV DVT Prophylaxis: Lovenox 40 q 24hr - creatinine clearance >30 Disposition: Remain in ICU Status Critical Care Time: 35 minutes Total critical care time caring for this patient with life threatening, unstable organ failure, including direct patient contact, management of life support systems, review of data including imaging and labs, discussions with other team members and physicians, excluding procedures. 09/27/23 0912 Wean Screen Arterial pH >7.30 and <7.50 Yes PROGRESS NOTE: NEUROCRITICAL CARE Patient Name:Luiza May Patient : 1955 Chief complaint: Seizure Hospital Summary: 67F PMH COPD (2L), previous trach, HFpEF, stroke with residual dysphagia (previous PEG), breast cancer, HTN, depression, recent traumatic parafalcine SDH Aug 2023 presented to OSH 09/25 with GTC seizures. Found to have respiratory failure as well (pH 7.14, pCO2 137), placed on NIV and ended up intubated. Dilantin level reported to be subtherapeutic. Transferred to [facility] for further care. Limited history regarding seizures. Per family, 1st time seizure in Jun 2022 in setting of hypoxia and elevated CO2 levels in which pt did not wear her bipap at night and has been on Dilantin since. No neuro follow up. Interval History: Remain intubated. Febrile this morning. Tachycardia at times. Remains on precedex and propofol Diet/TF:NPO VTE prophylaxis: YES Lovenox Medications: Scheduled Meds: [Held by provider] ARIPiprazole, 2 mg, Oral, Daily aspirin, 81 mg, Oral, Daily atorvastatin, 40 mg, Oral, Nightly budesonide, 0.5 mg, Nebulization, Daily DULoxetine, 60 mg, Oral, Daily enoxaparin, 40 mg, SubCUTAneous, Daily folic acid, 1 mg, Oral, Daily ipratropium-albuterol, 3 mL, Nebulization, TID levETIRAcetam, 1,000 mg, IntraVENous, BID methylPREDNISolone sod suc (PF), 40 mg, IntraVENous, q24h phenytoin, 100 mg, Oral, TID thiamine (Vitamin B1) 100 mg in sodium chloride 0.9 % 100 mL IVPB, 100 mg, IntraVENous, q24h PRN Meds: PRN medications: acetaminophen, bisacodyl, ondansetron ODT OR ondansetron, polyethylene glycol (PEG) 3350, Propylene Glycol-Glycerin, sodium chloride Allergies: Tetanus toxoid Review of Systems Limited by ETT Telemetry: Arrhythmia:No Physical Examination: Patient Vitals for the past 8 hrs: BP Temp Pulse Resp SpO2 Weight 09/27/23 0730 117/55 (!) 38.1 C (100.6 F) (!) 129 23 98 % -- 09/27/23 0715 140/68 (!) 38.1 C (100.6 F) 105 25 -- -- 09/27/23 0700 126/73 (!) 38.1 C (100.6 F) 101 21 -- -- 09/27/23 0645 98/75 38 C (100.4 F) 93 22 98 % -- 09/27/23 0630 128/74 38 C (100.4 F) 99 21 99 % -- 09/27/23 0615 120/58 37.9 C (100.2 F) 93 22 99 % -- 09/27/23 0600 125/88 37.9 C (100.2 F) 97 20 100 % 72.2 kg (159 lb 2.8 oz) 09/27/23 0545 120/59 37.8 C (100 F) 89 19 100 % -- 09/27/23 0530 132/69 37.8 C (100 F) 87 15 99 % -- 09/27/23 0515 128/66 37.8 C (100 F) 97 21 99 % -- 09/27/23 0500 112/61 37.7 C (99.9 F) 94 19 100 % -- 09/27/23 0445 141/93 37.6 C (99.7 F) 100 22 100 % -- 09/27/23 0430 129/62 37.6 C (99.7 F) 99 20 100 % -- 09/27/23 0418 -- -- 69 14 100 % -- 09/27/23 0415 111/79 37.6 C (99.7 F) 70 14 100 % -- 09/27/23 0400 119/54 37.6 C (99.7 F) 72 14 100 % -- 09/27/23 0345 125/58 37.6 C (99.7 F) 75 14 100 % -- 09/27/23 0330 115/62 37.6 C (99.7 F) 83 14 98 % -- 09/27/23 0315 115/70 37.5 C (99.5 F) 90 23 100 % -- 09/27/23 0300 111/66 37.4 C (99.3 F) 90 24 100 % -- 09/27/23 0245 137/74 37.4 C (99.3 F) 78 23 100 % -- 09/27/23 0230 128/61 37.5 C (99.5 F) 76 14 99 % -- 09/27/23 0215 128/58 37.5 C (99.5 F) 71 14 100 % -- 09/27/23 0200 125/59 37.6 C (99.7 F) 68 14 99 % -- 09/27/23 0145 125/56 37.6 C (99.7 F) 66 14 99 % -- 09/27/23 0130 123/56 37.7 C (99.9 F) 70 14 100 % -- 09/27/23 0115 124/62 37.7 C (99.9 F) 75 14 100 % -- 09/27/23 0106 -- -- 76 14 100 % -- 09/27/23 0100 125/65 37.7 C (99.9 F) 82 14 100 % -- 09/27/23 0045 118/86 -- -- -- -- -- I/O last 3 completed shifts: In: 1932.5 (26.8 mL/kg) [I.V.:1792.5 (24.8 mL/kg); NG/GT:140] Out: 1201 (16.6 mL/kg) [Urine:1201 (0.5 mL/kg/hr)] Weight: 72.2 kg General Physical Examination: General: Ill appearing on vent HEENT:Normocephalic, atraumaticl CV: S1+S2, RRR, no MRG. Pulm: diminished Abdomen: Soft NT/ND. BS + Skin: Intact without ulcers, breakdowns or discoloration Extremities: normal with no edema or cyanosis Orthopedic limitation; No Pulses: Intact peripherally Carotid auscultation :No bruits Neurological Examination: Higher Functions: Mental Status Exam: Level of Alertness:Awake Orientation: ETT but mouths appropriately Memory: appears normal Fund of Knowledge: appears normal Language: ETT Dysarthria ETT Cranial Nerves: -II Visual acuity: normal -II Visualfields: normal -III Pupils (~ 3 mm OD, 3 mm OU) equal, round, reactive to light -III-IV- Extraocular Movements: intact -Nystagmus not present -Saccades and pursuits normal -V Facial sensation: intact Corneal's Intact bilateral -VII Facial strength:intact -VIII Hearing: intact -IX-X - Gag reflex present -X Palate: intact -XI Shoulder shrug: intact -XII Tongue movement: not participant MotorExamination: Tone after evaluation of 4 limbs, the following findings applied: Normal -Bulk: normal -Muscle Stretch afterevaluation of all limbs, and axial musculature the following findings applied: Drift: absent normal -Reflexes: after evaluation of 4 limbs, the following findings applied ; normal all limbs -Plantar responce: Flexor bilaterally Sensory appears normal butlimited reliability, Coordination: Arms Normal finger to nose Legs patient unable to perform test due to sedation, paralysis or limb orthopediccircumstances Tremors not present Gait abnormal, patient unable to walk due to acute circumstances / bed rest / safety concerns ANCILLARY Cardiac testing: EKG: Radiology/imaging personal review: EEG: IMPRESSION AND ACTIONS TAKEN: This routine EEG with video is abnormal. Continuous RIGHT hemisphere predominant generalized slowing is seen with intermixed fast frequencies. This activity is not responsive to stimulation. No epileptiform activity nor seizures are observed. No sleep architecture is captured. The findings are consistent with with RIGHT hemisphere predominant dysfunction supportive of a breach rhythm (as seen through a skull defect) superimposed on a [id number] global encephalopathy. CT Head 09/27/23: No acute findings. ASSESSMENT / PLAN/RECOMMENDATIONS: Breakthrough GTC seizure - In setting of subtherapeutic dilantin levels as well as hypoxia/hypercarbia - Dilantin stopped, continue Keppra 1000mg BID - No need for cEEG, patient is awake and following commands - MRI brain with/without contrast to rule out any structural abnormality - Correct electrolyte abnormalities - Maintain seizure precautions Acute on chronic respiratory failure/COPD - Per ICU team History of stroke - Continue ASA 81, Atorvastatin 40 Recent traumatic SDH - Pt to follow up with OP NSGY HCAP - Abx Fever - In setting of above - Infectious work-up per ICU History of ETOH use - Thiamine, folic acid Anemia - Monitor Family updated at bedside. 28 minutes of my independent time was spent preparing to see the patient, obtaining/reviewing separately obtained history, completing an appropriate medical examination of the patient, ordering medications/tests/procedures, documenting clinical information on the EMR, and/or coordinating care. Discussed with Dr. Briggs. ICU Progress Note Name: Luiza May : 1955(67 y.o.) Date: 09/27/23 Team: MICU Attending: Dr. Aguilar Subjective: Hospital Summary: 67F PMH Chronic resp failure s/p trach 07/2022 (reversed a few months later) current 4L home O2, CPAP QHS, HFpEF w/ takotsubo cardiomyopathy, Fall 01/08/2022 resulting in subdural hematoma requiring R crani/evac, prior DVT (07/2022, not on OAC), HTN/HLD, anxiety/depression, alcohol abuse, seizure disorder (on dilantin). Pt initially admitted to OSH 09/24. Prior to arrival there, was reportedly walking in to the bathroom when she started having tonic-clonic seizure activity lasting ~10 minutes, witnessed by fiance, called EMS and taken to OSH. Noted to have subtherapeutic dilantin level - was given keppra. Cont to have AMS, ABG with hypercarbic, pH 7.14, Co2 137 --> was intubated and transferred to [facility] ICU. Recent unwitnessed fall 08/05/2023 resulting in subdural hematoma - admitted to [facility]. [facility] MORENO'ED at that time. Has not followed up with NSGY d/t location/distance. Interval Events: Febrile overnight, 100.6F. Awake, remains intubated this morning. On 45mcg/kg/hr propofol. Following commands. Answering yes/no questions appropriately. Pt reports claustrophobia, nods head that she would not be able to tolerate without sedation. Will hold off on SBT/extubation planning until after MRI. Scheduled Meds:[Held by provider] ARIPiprazole, 2 mg, Oral, Daily aspirin, 81 mg, Oral, Daily atorvastatin, 40 mg, Oral, Nightly budesonide, 0.5 mg, Nebulization, Daily DULoxetine, 60 mg, Oral, Daily enoxaparin, 40 mg, SubCUTAneous, Daily folic acid, 1 mg, Oral, Daily ipratropium-albuterol, 3 mL, Nebulization, TID levETIRAcetam, 1,000 mg, IntraVENous, BID methylPREDNISolone sod suc (PF), 40 mg, IntraVENous, q24h phenytoin, 100 mg, Oral, TID thiamine (Vitamin B1) 100 mg in sodium chloride 0.9 % 100 mL IVPB, 100 mg, IntraVENous, q24h Continuous Infusions:norepinephrine, 1-100 mcg/min, Last Rate: 7 mcg/min (09/26/231918) propofol, 5-50 mcg/kg/min, Last Rate: 25 mcg/kg/min (09/27/23103) Objective: Last Vitals: BP MAP 117/55 (09/27/23729) 73 (09/27/23729) Arterial BP MAP Temp (!) 38.1 C (100.6 F) (09/27/23729) Pulse (!) 129 (09/27/23729) Resp 23 (09/27/23729) SpO2 98 % (09/27/23729) Weight 72.2 kg (159 lb 2.8 oz) (09/27/23599) BMI Body mass index is 29.11 kg/m . I/O: 09/25 699 - 09/26 658 In: 1932.5 [I.V.:1792.5] Out: 1201 [Urine:1201] Ventilator: Resp Rate (Set): 14 Vt (Set, mL): 400 mL FiO2 (%): 40 % PEEP/CPAP (cm H2O): 8 cm H20 Inspiratory Time (sec): 0.9 sec Oxygen Delivery: Invasive Lines / Tubes / Drains: CVC Triple Lumen 09/26/23 Non-tunneled Right Internal jugular (Active) Number of days: 1 NG/OG Tube Orogastric Center mouth (Active) Number of days: 1 Urethral Catheter Temperature probe 18 Fr. (Active) Number of days: 1 ETT 7.5 mm (Active) Number of days: 1 Central Line Indication: Vesicant infusions/medications at high risk of causing extravasation [place] Indications: Hourly I&Os (Critical Care ONLY) Restraints: Restraints Non-Violent Or Non-Self Destructive Sep 26, 2023 3:20 Pm Edt Restraint order already placed. Order is valid for duration of episode. Wounds: Wound/Incision 09/26/23 Traumatic Lip Left;Upper (Active) Date First Assessed: 09/26/23 Present on Original Admission: Yes Primary Wound Type: Traumatic Location: Lip Wound Location Orientation: Left;Upper Wound/Incision 09/26/23 Pressure Injury Heel Left (Active) Date First Assessed: 09/26/23 Present on Original Admission: Yes Primary Wound Type: Pressure Injury Location: Heel Wound Location Orientation: Left Pressure Injury Stage: Stage 1 Constitutional: General Appearance [x]WDWN []Obese []Cachectic []Thin []Ill Eyes: Inspection of Pupils/Irises Pupils round and react: [x]Yes []No Sclera: []Icteric [x]Non-Icteric Inspection of Conjunctiva/Lids Conjunctiva: []Injected [x]Non-Injected Lids: [x]Intact []Lesion Present ENT/Mouth: External Inspection of ears/nose [x] Normal [] Scar/Lesion/Mass Inspection of teeth/lips/gums Dentition: [x][place] Teeth []Dentures Lips/Gums: [x]Intact []Lesion Present Mucosa: [x]Celada [x]Moist []Dry Neck: External Appearance Overall Appearance: [x]Normal []Lesion/Mass/Crepitus Present Trachea midline: [x]Yes []No Thyroid []Normal []Enlarged []Tender []Mass []Absent Respiratory: Respiratory effort []Labored [x]Non-Labored [x] Mechanically-Ventilated Auscultation [x]Clear []Crackles []Wheezes []Rhonchi Cardiovascular: Auscultation Rate: [x]Regular []Irregular [x]Tachycardia []Bradycardia Rhythm: [x]Regular []Irregular Murmur: []Present [x]Absent Extremities Peripheral Edema: []Present [x]Absent Varicosities: []Present [x]Absent Gastrointestinal: Abdomen Palpation: [x]Soft []Firm []Tender [x]Non-Tender []Distended [x]Non-distended Mass: []Present []Absent Bowel Sounds: []Present []Absent Hernia: []Present []Absent Liver/Spleen: []Hepatosplenomegaly []Organomegaly Absent Musculoskeletal: Inspection of Digits and Nails Cyanosis: []Present [x]Absent Clubbing: []Present [x]Absent Ischemia: []Present [x]Absent Infection: []Present [x]Absent Extremities REGALADO Equally: Except ([]RUE []RLE []LUE []LLE) Strength/Tone: Intact and Normal ([x]RUE [x]RLE [x]LUE [x]LLE) Skin: Inspection [x]Normal []Rash []Lesion []Ulcer Palpation [x]Warm []Cool [x]Dry []Clammy []Nodules []Induration []Skin-tightening Cap-Refill: [x] <3 sec [] >3 seconds (delayed) Neurologic: GCS EYE: 4 - Opens spontaneously GCS MOTOR: 6 - Obeys commands for movement GCS VERBAL: 1 - No response - intubated Total GCS: 11 [x] Sensation grossly intact Psych: Mental Status Alert: [x]Yes [] No Oriented: []x0 []X1 []X2 []x3 Mood/Affect [x]Normal []Flat []Agitated []Depressed []Anxious []Calm []Sedated []NAD [facility] within last 24 hours- BMP: Recent Labs 09/26/23 1600 09/27/23 0516 NA 142 139 K 4.2 3.6 CL 101 101 CO2 40* 34* BUN 16 14 CREATININE 0.50* 0.54 CALCIUM 8.1* 8.3* MG 1.7 1.6 PHOS 0.9* 1.0* LFTs: Recent Labs 09/26/23 1600 BILIRUBINU Negative Glucose: Recent Labs 09/26/23 1600 09/27/23 0516 GLUCOSE 114* 103* Procal: Recent Labs 09/26/23 1600 PROCAL 0.02 CBC: Recent Labs 09/26/23 1542 09/26/23 1600 09/27/23 0516 WBC -- 8.3 8.5 HGB 10.4 9.1* 8.8* HCT -- 31.5* 29.1* PLT -- 135* 147 MCV -- 97.5 94.5 RDW -- 12.8 12.9 ABGs: Recent Labs 09/26/23 1542 PHART 7.435 SAS8WTR 58.4* PO2ART 52.6* EYH3NOY 38.3* G1RFUDTP 40% Oxygen Lactic Acid: Recent Labs 09/26/23 1600 LACTATE 1.2 INR: No results for input(s): INR in the last 72 hours. Cardiac Injury Profile: Recent Labs 09/26/23 1600 09/26/23 1918 09/26/23 2243 TROPONINI 0.020 0.019 0.018 Labs in Last 3 months: No results found for: TSH , VITD25 , PSA , INR , GLUF Microbiology- Urine Cx: Lab Results Component Value Date URINECX 07/29/2022 Insignificant growth based on current clinical guidelines Blood Cx: Lab Results Component Value Date BLOODCX No growth at 5 days 07/25/2022 Sputum Cx: Lab Results Component Value Date RESPCULT No growth of normal respiratory ailyn. 07/26/2022 RESPCULT Moderate Staphylococcus aureus (A) 07/26/2022 RESPCULT Few Streptococcus agalactiae (Group B) (A) 07/26/2022 Gram Stain: Lab Results Component Value Date LABGRAM (A) 07/26/2022 Many Polymorphonuclear leukocytes per low power field LABGRAM Rare Epithelial cells per low power field (A) 07/26/2022 LABGRAM Moderate Gram positive cocci in pairs and chains (A) 07/26/2022 LABGRAM Moderate Gram positive cocci in clusters (A) 07/26/2022 LABGRAM Rare Gram negative bacilli (A) 07/26/2022 PNA PCR: Lab Results Component Value Date HUMANMETAPNE Not Detected 07/25/2022 COVID19: No results found for: COVID19 Legionella Ag: No results found for: LEGIONELLAPN Strep Ag: No results for input(s): STREPPNEUMO in the last 72 hours. Imaging- 09/26 CTA chest IMPRESSION: Minimal bilateral pleural effusions and adjacent slight infiltrate or atelectasis. Assessment and Plan: Acute on chronic hypoxic/hypercarbic resp failure ?bilateral infiltrate - likely aspiration in setting of seizures vs HAP COPD Hx prior trach/peg (07/2022, reversed shortly after per family) -Vent D2. Infectious workup pending. ON 40mg solumedrol daily, can switch to prednisone likely tomorrow vs DC. Cefepime/vanc. Nebs. When extubated will need PAP. SBT after MRI today. Switch to precedex. Seizures (known history CHRO) -plan to stop dilantin, started on keppra - will cont keppra outpatient if tolerates, hope with decreased dosing will increase compliance. NeuroCC following. -per family 1st seizure in 07/2022 and has not had recurrence since. Was told likely r/t hypercarbia. Severe sepsis -likely pulm source. Tmax 101.1F, procal pending. Cefepime/vanc for now. Resp PCR, antigens, PNA PCR/resp culture pending. -abx delayed d/t access/blood cultures Tachycardia -Sepsis vs electrolyte abnormalities. 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 Ethanol and ethyl gluc negative. Folic acid, thiamine. GI Prophylaxis: Pantoprazole IV DVT Prophylaxis: Lovenox 40 q 24hr - creatinine clearance >30 Disposition: Remain in ICU Status Critical Care Time: 35 minutes Total critical care time caring for this patient with life threatening, unstable organ failure, including direct patient contact, management of life support systems, review of data including imaging and labs, discussions with other team members and physicians, excluding procedures. I personally expend more than [] 45, []75 , 95 [] min of time. [x] critical care time Total critical care time caring for this patient with life threatening, unstable organ failure including direct patient contact, management of life support systems, review of data including imaging and labs, discussions with other team members and physicians, excluding procedures. []not critical care performing a [x] I personally reviewing stat labs, stat imaging studies and reviewed available medical record performed a history and physical examination of the patient and discussed the urgent management, diagnostic impressions and suggested plan of care documented in this note. [] Personally completed note [x] Attestation residents / BACILIO note [x] Patient remains in critical condition and requires close critical care monitoring 67 yr old lady with hx of COPD, TIO, ch respiratory failure on home oxygen and home BIPAP, seizure disorder on dilantin, recurrent admissions to [facility] in the past for ac on ch hypercarbic respiratory failure, was admitted to [facility] ICU for recurrent seizure x2 and ac on ch hypercarbic respiratory failure with pH 7/01 and PCO2:130 that did not respond to NIV and was intubated. Now care transferred to [facility] ICU for further management of recurrent seizure. By report her dilantin level was subtherapeutic and she received keppra, 1 gram x2 earlier today.. Now sedated, tries to open eyes but otherwise no responses Physical Examination: Patient Vitals for the past 8 hrs: BP Temp Temp src Pulse Resp SpO2 Height Weight 09/26/23 1546 -- -- -- 82 14 100 % -- -- 09/26/23 1500 112/57 37.2 C (99 F) Bladder 68 14 100 % -- -- 09/26/23 1445 (!) 119/43 37.1 C (98.8 F) -- 67 16 100 % -- -- 09/26/23 1433 (!) 108/46 37.1 C (98.8 F) Bladder 73 16 99 % -- -- 09/26/23 1428 -- -- -- -- -- -- 1.575 m (5' 2 ) 68.2 kg (150 lb 5.7 oz) No intake/output data recorded. EXAM: General Appearance: []WDWN []Obese []Cachectic []Thin [x]ill Skin: Temperature []Warm [x]Cool Rash []Yes []No Tattoo(s) []Yes []No HEENT: Pupils round and react [x]Yes []No Sclera []Icteric [x]Non-Icteric Conjunctiva []Injected [x]Non-Injected Pinnae []Normal []Other Dentitian [][place] Teeth []Dentures []Poor dentition []Edentulous Oral Mucosa []Celada []Moist []Dry Oral ETT [x]Present []Absent Neck: Trachea midline [x]Yes []No Thyromegaly []Yes [x]No Crepitus []Present [x]Absent Jvd []Present [x]Absent Lungs: [x]Clear []Crackles []Wheezes []Rhonchi Respiratory effort []Labored [x]Non-Labored Heart: Rate []Regular []Irregular []Tachycardia []Bradycardia Rhythm [x]Regular []Irregular Murmur []Present []Absent Peripheral Edema []Present [x]Absent Abdomen: [x]Soft Bowel Sounds []Present []Absent []Diminished []Tender [x]Non-Tender []Distended [x]Non-distended Hernia []Present []Absent Organomegaly []Present [x]Absent []Unable to assess due to size []Scar Extremities: Cyanosis []Present [x]Absent Capillary Refill []<3 sec []>3 sec REGALADO ([]RUE []RLE []LUE []LLE) Neurologic: BISHOP PAIUTE []Yes []No Corneal reflexes []Present []Absent Plantar reflexes []Up []Down []Absent Withdraws to tactile []Yes []No Follows Commands []Yes [x]No [x]Unresponsive to verbal []Cranial nerves grossly intact []Sensation grossly intact Psych: Alert []yes [x]no Oriented [x]x0 []x1 []x2 []x3 Affect []Normal []Flat []Agitated []Anxious []Calm [x]Sedated []NAD ASSESSMENT: Acute on ch Hypercarbic and Hypoxemic respiratory failure Encephalopathy Status epilepticus PLAN: Wean sedation to allow assessment of neurologic status ABG and adjust settings Bronchodilators EKG and troponin CTPA to r/o PE in unexplained respiratory failure Consult neuroCC. mIVF Monitor closely and expand investigations as new evidence emerges. documented in this encounter [facility] 10-12-2023 Miscellaneous Notes Patient Choice Patient Name: LUIZA MAY Date of : 1955 All Providers Sent Referral Name: [facility] Phone: [phone] Address: [address] [place] [address] Name: [facility] ([facility]) Phone: [phone] Address: [address] [id number] Discharge med list, MAR and updated notes transmitted to [facility] via Careport per [facility] request. SPOKE WITH PT AND FAMILY AT BEDSIDE, NOW HAVE AUTH FOR PT TO GO TO [facility]. SW TO SET UP TRANSPORT. SECURE CHAT WITH DR CANSECO FOR DC ORDERS. TASKED CAM TO SEND DC PAPERWORK TO [facility]. BEDSIDE NURSE ALSO AWARE DISCHARGING TODAY. Social work follow up on coverage case. IBETH was notified by the [facility] that the patient approved for admission to [facility]. Transport arranged with Ashok Sorensen via COT for 4 pm order picker/assembler. SW updated the patient at bedside on transport time and possible copay/expense for transport. SW updated the patients daughter Ameena via phone on transport time. SW updated patients bedside RN, batch unit treater and select liaison on transport time. Images from the original note were not included. Care Management Progress Note WAITING FOR EXPEDITED APPEAL FOR [facility]. REMAINS TRACH/VENT, O2 AT 35%, PEG TUBE FEEDS. PREDNISONE TAPER AND AEROSOLS. PULM FOLLOWING. WILL CONTINUE TO FOLLOW. Discharge Milestones and Delays Expected Date/Time: 10/11/[address] discharge order Complete med reconciliation Case mgmt discharge readiness Clinical Stability Diagnsotic Workup Facility Choice Selection Facility Pre-cert Expected Discharge History Expected Date/Time Set By Reviewed At 10/11/2023 Nicki Mclean RN 10/11/2023 7:26 AM auth pending -started 10/0410/09/2023 Nicki Mclean RN 10/08/2023 8:00 AM 10/07/2023 Zoe Carmona RN 10/07/2023 10:54 AM 10/07/2023 Zoe Carmona RN 10/06/2023 11:14 AM 10/13/2023 Renetta Barraza, FINESSE 10/05/2023 7:31 AM 10/13/2023 Renetta Barraza, FINESSE 10/04/2023 8:15 AM 10/03/2023 Yanet Aguilar MD 10/01/2023 7:38 PM 10/06/2023 Renetta Barraza RN 10/01/2023 8:09 AM 10/03/2023 Renetta Barraza RN 10/01/2023 8:08 AM 10/03/2023 Renetta Barraza RN 09/30/2023 8:01 AM 10/03/2023 Renetta Barraza RN 09/29/2023 7:19 AM 10/03/2023 Renetta Barraza RN 09/28/2023 7:50 AM 10/03/2023 Renetta Barraza RN 09/27/2023 9:40 AM 10/03/2023 Yuridia Pierre DO 09/26/2023 3:07 PM Length of Stay (Days): 15 GMLOS: 5.2 DCP- [facility] [place] pending (started 10/07). Messaged LTAC liaison regarding status of appeal. Await appeal decision from insurance company and TCC will continue to follow for add'l needs for dc. Images from the original note were not included. Care Management Progress Note PT TRANSFERRED FROM ICU YESTERDAY. IS TRACH/VENT, O2 AT 35%, PEG TUBE FEEDS. CURRENTLY ON PO PREDNISONE, PULMICORT AEROSOLS. PULM FOLLOWING. PLAN TO DC TO [facility], EXPEDITED APPEAL PAPERWORK SIGNED BY DR IRWIN. I FAXD BACK TO [facility]. WILL CONTINUE TO FOLLOW. Discharge Milestones and Delays Expected Date/Time: 10/09/[address] discharge order Complete med reconciliation Case mgmt discharge readiness Clinical Stability Diagnsotic Workup Facility Choice Selection Facility Pre-cert Expected Discharge History Expected Date/Time Set By Reviewed At 10/09/2023 Nicki Mclean RN 10/08/2023 8:00 AM auth pending -started 10/0410/07/2023 Zoe Carmona RN 10/07/2023 10:54 AM 10/07/2023 Zoe Carmona RN 10/06/2023 11:14 AM 10/13/2023 Renetta Barraza RN 10/05/2023 7:31 AM 10/13/2023 Renetta Barraza FINESSE 10/04/2023 8:15 AM 10/03/2023 Yanet Aguilar MD 10/01/2023 7:38 PM 10/06/2023 Renetta Barraza, FINESSE 10/01/2023 8:09 AM 10/03/2023 Renetta Barraza, RN 10/01/2023 8:08 AM 10/03/2023 Renetta Barraza, RN 09/30/2023 8:01 AM 10/03/2023 Renetta Barraza, RN 09/29/2023 7:19 AM 10/03/2023 Renetta Barraza, RN 09/28/2023 7:50 AM 10/03/2023 Renetta Barraza, FINESSE 09/27/2023 9:40 AM 10/03/2023 Yuridia Pierre DO 09/26/2023 3:07 PM Length of Stay (Days): 12 GMLOS: 5.2 ICU Transfer Checklist Transfer Med Reconciliation (resume home meds if able, convert to PO if able) Complete Antibiotics (name, indication, duration, convert to PO if able) Yes, addressed in today's progress note Steroid (indication, duration, convert to PO if able) Yes, addressed in today's progress note Anticipated [place] Medications (ICU initiated) or Dose Changes and Indication No Permanently Discontinued Home Medications and Reason for medication contraindication No Soliman Catheter (please remove if able. Note: place DC order) Yes, indication diuresis, I&O Central Line (please remove if able. Note: place DC order) Yes, indication Unable to obtain peripheral access Transfer Discussed with: Dr Perez- [facility] [place] and Dr Villafuerte- ICU If additional questions for ICU team within 24 hours of ICU transfer[facility]. Images from the original note were not included. Care Management Progress Note Remains on vent, trach. Given IV Lasix this AM. Off precidex. Up in chair. Auth pending for [facility] Dimitry Doe) Discharge Milestones and Delays Expected Date/Time: 10/07/[address] discharge order Complete med reconciliation Case mgmt discharge readiness Clinical Stability Diagnsotic Workup Facility Choice Selection Facility Pre-cert Expected Discharge History Expected Date/Time Set By Reviewed At 10/07/2023 Zoe Carmona RN 10/06/2023 11:14 AM 10/13/2023 Renetta Barraza RN 10/05/2023 7:31 AM 10/13/2023 Renetta Barraza RN 10/04/2023 8:15 AM 10/03/2023 Yanet Aguilar MD 10/01/2023 7:38 PM 10/06/2023 Renetta Barraza RN 10/01/2023 8:09 AM 10/03/2023 Renetta Barraza, FINESSE 10/01/2023 8:08 AM 10/03/2023 Renetta Barraza, FINESSE 09/30/2023 8:01 AM 10/03/2023 Renetta Barraza RN 09/29/2023 7:19 AM 10/03/2023 Renetta Barraza, FINESSE 09/28/2023 7:50 AM 10/03/2023 Renetta Barraza RN 09/27/2023 9:40 AM 10/03/2023 Yuridia Pierre DO 09/26/2023 3:07 PM Length of Stay (Days): 10 GMLOS: 5.2 Transportation form completed in [facility]. Referral placed to LT[facility] - [facility] via Careport per TCC request. Await review and response regarding ability to accept. TCC notified. Images from the original note were not included. Care Management Progress Note Chart reviewed. Patient remains on STN ICU for seizure 09/26/2023. Consults to IP WOUND CARE NURSE CONSULT TO EVAL IP CONSULT TO DIETITIAN IP CONSULT TO NEUROLOGY IP CONSULT TO DIETITIAN IP CONSULT TO PALLIATIVE CARE IP CONSULT TO GENERAL SURGERY IP CONSULT TO CARDIOLOGY Discharge Planning Barriers: Trach to vent. TLC CVC. IV qtt - Precedex, ketamine - off Peg - TF. Soliman. TCC spoke with patient's sister Ameena [phone] regarding discharge planning. Agreeable to patient going to [facility] in [place], [place]. TCC tasked LOCK OPERATOR to send referral to [facility] via careport. TCC asked to start auth as well. Discharge Planning: [facility]. Awaiting facility precert, clinical stability and medical clearance. Will continue to follow with [facility] and . Discharge Milestones and Delays Expected Date/Time: 10/13/[address] discharge order Complete med reconciliation Case mgmt discharge readiness Clinical Stability Diagnsotic Workup Facility Choice Selection Facility Pre-cert Expected Discharge History Expected Date/Time Set By Reviewed At 10/13/2023 Renetta Barraza RN 10/05/2023 7:31 AM 10/13/2023 Renetta Barraza RN 10/04/2023 8:15 AM 10/03/2023 Yanet Aguilar MD 10/01/2023 7:38 PM 10/06/2023 Renetta Barraza RN 10/01/2023 8:09 AM 10/03/2023 Renetta Barraza RN 10/01/2023 8:08 AM 10/03/2023 Renetta Barraza RN 09/30/2023 8:01 AM 10/03/2023 Renetta Barraza RN 09/29/2023 7:19 AM 10/03/2023 Renetta Barraza RN 09/28/2023 7:50 AM 10/03/2023 Renetta Barraza RN 09/27/2023 9:40 AM 10/03/2023 Yuridia Pierre DO 09/26/2023 3:07 PM Length of Stay (Days): 9 GMLOS: 5.2 Called Ameena May [phone] for consent for blood product for her mother Luiza May as Hgb 6.0 this AM. I went over risk and benefits of PRBC including transfusion reaction. Ameena verbalized Understanding, states the patient has recieved transfusions in the past without issue. She gave consent for PRBC transfusion, witnessed by myself and Dr. Villafuerte. Paper consent to be placed in chart momentarily. Images from the original note were not included. Care Management Progress Note Chart reviewed. Patient remains on STN ICU for seizure 09/26/2023. Consults to IP WOUND CARE NURSE CONSULT TO EVAL IP CONSULT TO DIETITIAN IP CONSULT TO NEUROLOGY IP CONSULT TO DIETITIAN IP CONSULT TO PALLIATIVE CARE IP CONSULT TO GENERAL SURGERY Discharge Planning Barriers: Intubated/sedated. IV qtt - Ketamine, precedex TLC CVC Peg - NPO. Soliman IVABX PT/OT pending OR today for trach and peg Discharge Planning: TBD. Awaiting clinical stability and medical clearance. Will continue to follow. Discharge Milestones and Delays Expected Date/Time: 10/13/[address] discharge order Complete med reconciliation Case mgmt discharge readiness Clinical Stability Diagnsotic Workup Expected Discharge History Expected Date/Time Set By Reviewed At 10/13/2023 Renetta Barraza RN 10/04/2023 8:15 AM 10/03/2023 Yanet Aguilar MD 10/01/2023 7:38 PM 10/06/2023 Renetta Barraza RN 10/01/2023 8:09 AM 10/03/2023 Renetta Barraza RN 10/01/2023 8:08 AM 10/03/2023 Renetta Barraza, FINESSE 09/30/2023 8:01 AM 10/03/2023 Renetta Barraza, FINESSE 09/29/2023 7:19 AM 10/03/2023 Renetta Barraza RN 09/28/2023 7:50 AM 10/03/2023 Renetta Barraza RN 09/27/2023 9:40 AM 10/03/2023 Yuridia Pierre DO 09/26/2023 3:07 PM Length of Stay (Days): 8 GMLOS: 5.2 Notes reviewed, was extubated but required re-intubation, plans for open trach and peg today Official return tomorrow Operative Report Name: Luiza May Date of : 1955 Date of Procedure: 10/04/23 Pre-operative Diagnosis: ventilator dependent respiratory failure Post-operative Diagnosis: Same Procedures Performed: 1. Tracheostomy 2. Percutaneous Endoscopic Gastrostomy tube placement Anesthesia: General Surgeons/Assistants: Renzo/Venkata PGY3 Indication for Procedure: This is a 67 year-old who significant past medical history of COPD, HTN, CVA, CAD, prior trach/PEG, appendectomy, cholecystectomy, who is admitted currently to the MICU service for acute respiratory failure and seizures. Patient was extubated 10/02/23, but reintubated this 10/03/23. Patient is a candidate for a tracheostomy/PEG tube placement. Description of Procedure: Informed consent was obtained from patient's family by explaining the risks and benefits of the planned procedures. The family's questions were answered. The patient was taken directly to the Operating Room from the ICU and placed supine on the OR table with the arms tucked and a bump under the shoulder blades. Anesthesia was further induced and the neck was prepped and draped for the tracheostomy placement. A time-out procedure was performed confirming correct patient, procedure, and that all needed equipment was in the room. Everyone was in agreement with the time-out. The patient's neck was hyper-extended and prepped with betadine solution. Patient was draped in the usual fashion. The thyroid and cricoid cartilage, as well as the sternal notch, were identified and marked with a skin marker. A elliptical incision was made approximately 1.5cm below the cricoid cartilage at the site of the prior tracheostomy scar. Bovie cautery was used to dissect through the initial soft tissue and then a hemostat was used to bluntly dissect down to the cricothyroid membrane, however significant scar tissue was encountered and a 15 blade was used to dissect down to the trachea. The trachea was incised between the second and third rings with a #15 blade and Pots scissors. The previous endotracheal tube was withdrawn by our Anesthesia colleagues above the level of the incision in the trachea. A tracheal dilator was used to dilate the tract and a 6 Shiley tracheostomy tube was inserted and advanced as the endotracheal tube was withdrawn completely. Position was confirmed by end-tidal CO2 and recorded tidal volumes on the Anesthesia ventilator. Hemostasis was assured with cautery and packing with hemostatic gauze. The tracheostomy tube was sutured in place to the skin and ties placed and tied around the neck. Next we proceeded with the PEG portion of the procedure. The abdomen was prepped with Chlorapep. An endoscope was passed down into the stomach. No abnormalities were noted. The stomach was insufflated and the endoscope was positioned in the midportion of the stomach and directed toward the anterior abdominal wall. With the room darkened, a good light reflex was noted on the skin of the abdominal wall in the left upper quadrant. Finger pressure was applied at the light reflex with adequate indentation on the stomach wall on endoscopy. A polypectomy snare was passed into the stomach, opened fully, and positioned so that the loop encircled the point of finger indentation. A 1cm incision was made at the site of light reflex on the skin. The introducer needle and catheter were passed through the incision and into the stomach under direct visualization. A guidewire was inserted through the catheter and captured by the snare. The endoscope, snare, and guidewire were then withdrawn and pulled back out of the mouth. The gastrostomy tube was attached to the loop of the guidewire and the whole thing was pulled back into the stomach until the 3cm joy of the gastrostomy tube was noted at skin level. The endoscope was reintroduced and adequate placement of the tube was visualized. The tube end was cut to adequate length and the clamping appendage was placed. Our sterile field was taken down. The procedure was then ended. The patient tolerated the procedures well and was returned to the ICU in critical but stable condition. All counts were correct at the end of the procedure. Findings: PEG tube at 3cm and successful placement of 6 Shiley trach tube Estimated Blood Loss: less than 10cc Complications: None Known Specimens: None Condition: Tolerated procedure well, returned to T2 ICU Des Sutton MD General Surgery PGY-3 Pager # [phone] Associated attestation - Seth Muller MD - 10/05/2023 11:33 PM EDT Attending physician addendum: I was present and scrubbed in the operating room for the entire surgery. Agree with below except for: Addendum: - Procedures: 1. Diagnostic bronchoscopy 2. Open tracheostomy 3. PEG tube placement - As first portion of the procedure Diagnostic pronchoscpy was performed. There was minimal amount of thin secretions in bilateral mainstem bronchi and bronchus intermedius which were evacuated oj the bronchoscope - vertical incision of mid tracheal at the level of 3rd tracheal ring was performed with 15 blade. The tracheotomy was enlarged in the midline with Pots scissors - the endotracheal tube was withdrawn by the anesthesia team under direct visualization - the tracheostomy cannula was introduced into the tracheal from a first attempt - the tracheostomy cannula was secured to the patient's skin with 3-0 Chromic stitches on both sides - tracheostomy site was packed with total of two strips of Surgicel - PEG tube - 3 cm at skin level , 4 cm at level of external bumper. Panfilo Muller MD FACS Trauma, Surgical Critical Care, & General Surgery Division of Trauma Department of Surgery [facility] P Date: 10/04/2023 Location: [facility] OR Name: Luiza May, : 1955, Diagnosis Pre-op Diagnosis * Acute respiratory failure with hypoxia and hypercapnia (HCC) [J96.01, J96.02] Post-op Diagnosis * Acute respiratory failure with hypoxia and hypercapnia (HCC) [J96.01, J96.02] Procedures DIAGNOSTIC BRONCHOSCOPY, TRACHEOSTOMY, PEG TUBE 98588 - [place] TRACHEOSTOMY PLANNED SEPARATE PROCEDURE ESOPHAGOGASTRODUODENOSCOPY WITH PERCUTANEOUS ENDOSCOPIC GASTROSTOMY TUBE PLACEMENT 78228 - [place] EGD PERCUTANEOUS PLACEMENT GASTROSTOMY TUBE Surgeons * Seth Muller - Primary Procedure Summary Anesthesia: General ASA: IV Estimated Blood Loss: 10 mL Drains: NG/OG Tube Orogastric 16 Fr Left mouth (Active) Placement Verification X-ray 10/03/231999 External Catheter Length (cm) 57 cm 10/03/231999 Site Assessment Clean;Intact 10/04/23 0800 Status Medication administration 10/04/23 0800 Drainage Appearance None 10/03/231999 Interventions Irrigated 10/03/232129 Irrigant Sterile water 10/03/232129 Free Water Intake (mL) 60 mL 10/04/23 08 Gastrostomy/Enterostomy PEG - Percutaneous endoscopic gastrostomy (PEG) LUQ (Active) Dressing Status New dressing;Clean, dry & intact 10/04/23 1139 Dressing Intervention New dressing 10/04/23 1139 Urethral Catheter Temperature probe 18 Fr. (Active) Catheter Indications Hourly I&Os (Critical Care ONLY) 10/04/23 0800 Site Assessment Clean;Skin intact 10/04/23 0800 Collection Container Standard drainage bag 10/04/23 0800 Securement Method Securing device 10/04/23 08 Catheter Best Practices Drainage tube clipped to bed 10/04/23 08 Catheter Status Draining;Patent 10/04/23 08 Output (mL) 100 mL 10/04/23 1000 [REMOVED] NG/OG Tube Orogastric Center mouth (Removed) Placement Verification X-ray 09/26/231999 Site Assessment Clean;Intact 09/27/231999 Status Clamped 09/27/231999 Drainage Appearance None 09/27/231999 Interventions Irrigated 09/26/231999 Irrigant Sterile water 09/26/231999 Free Water Intake (mL) 90 mL 09/26/23 2000 [REMOVED] NG/OG Tube Orogastric (Removed) Placement Verification X-ray 10/02/231199 External Catheter Length (cm) 65 cm 10/02/23 1200 Site Assessment Clean;Dry;Intact 10/02/23 1200 Status Low intermittent suction 10/02/23 1200 Drainage Appearance Clear 09/29/23 0800 Irrigant Sterile water 09/30/23 0000 Tube Feeding Vital 1.5 Kelvin 10/01/23 0800 Tube Feeding Method Continuous per pump 10/01/23 0800 Tube Feeding Rate 35 mL/hr 10/01/23 0800 Tubing Changed No 10/01/23 0800 Free Water Intake (mL) 30 mL 10/01/23 1806 Tube Feed Intake (mL) 71 mL 10/01/23 1806 [REMOVED] NG/OG Tube Orogastric 12 Fr Center mouth (Removed) Placement Verification X-ray 10/03/23 1014 External Catheter Length (cm) 60 cm 10/03/23 1014 Site Assessment Clean;Dry;Intact 10/03/23 1014 Status Clamped 10/03/23 1014 Staff: Wood Shingle Roofer: Maren Goldman RN Relief Wood Shingle Roofer: Miroslava Berrios RN Scrub Person: [facility] Hydropress Operator Student: Meliza Garrison Findings: PEG tube 3cm at the skin, 2 pieces of Surgicel placed Okay for meds through PEG tube now, okay at start tube feeds at 6PM Complications: None; patient tolerated the procedure well. Specimens Collected: No specimens collected during this procedure. Wound Class: Class II: Clean-Contaminated Blood Products: None Prophylactic Antibiotics: Procedure appropriate prophylactic antibiotic(s) given within 1 hour of surgical incision (two hours if receiving Vancomycin or flouroquinolone) Problem: Safety - Non-violent/Interference with Medical Treatment Restraint Goal: Free from restraint(s) (Restraint for Interference with Toll Operator) Outcome: Not Progressing Problem: Safety - Non-violent/Interference with Medical Treatment Restraint Goal: Remains free of injury from restraints (Restraint for Interference with Toll Operator) Outcome: Progressing Problem: Safety - Non-violent/Interference with Medical Treatment Restraint Goal: Remains free of injury from restraints (Restraint for Interference with Toll Operator) Outcome: Completed Problem: Safety - Non-violent/Interference with Medical Treatment Restraint Goal: Free from restraint(s) (Restraint for Interference with Toll Operator) Outcome: Completed Problem: Potential for Compromised Skin Integrity Goal: Nutritional status is improving Outcome: Not Progressing 1615: Passed SBT. +cuff leak. NIF -31. Extubated to NC. Mild tachypnea ~22. States she is feeling just a little anxious. Precedex increased. HR 130. 1645 placed on NIV d/t tachypnea, HR 150. Pt states she feels very anxious. Denies SOB, just states she is having anxiety. Precedex increased, given ativan. Some improvement in tachypnea ~26 rather than 30. Still with some accessory muscle use/belly breathing. Discussed with patient chance for re-intubation if not continuing to improve. States she still wants re-intubation and trach if necessary. 1730: HR down to 130, RR 25-28. Overall increased WOB, but still with some accessory muscle use. Will trial NIV for another 30 minutes or so and if not cont to improve consider re-intubation. Daughter updated via phone. Images from the original note were not included. Care Management Progress Note Chart reviewed. Patient remains on [facility] ICU for seizure 09/26/2023. Consults to IP WOUND CARE NURSE CONSULT TO EVAL IP CONSULT TO DIETITIAN IP CONSULT TO NEUROLOGY IP CONSULT TO DIETITIAN IP CONSULT TO PALLIATIVE CARE Discharge Planning Barriers: Intubated/sedated. IV qtt - Ketamine TLC CVC. OGT-TF. Soliman. IVABX. PT/OT pending. Discharge Planning: TBD. Awaiting clinical stability and medical clearance. Will continue to follow. Discharge Milestones and Delays Expected Date/Time: 10/06/[address] discharge order Complete med reconciliation Case mgmt discharge readiness Clinical Stability Diagnsotic Workup Expected Discharge History Expected Date/Time Set By Reviewed At 10/06/2023 Renetta Barraza RN 10/01/2023 8:09 AM 10/03/2023 Renetta Barraza RN 10/01/2023 8:08 AM 10/03/2023 Renetta Barraza RN 09/30/2023 8:01 AM 10/03/2023 Renetta Barraza RN 09/29/2023 7:19 AM 10/03/2023 Renetta Barraza RN 09/28/2023 7:50 AM 10/03/2023 Renetta Barraza RN 09/27/2023 9:40 AM 10/03/2023 Yuridia Pierre DO 09/26/2023 3:07 PM Length of Stay (Days): 5 GMLOS: 5.2 Palliative Care Interdisciplinary Team Note: Diagnosis: Principal Problem: Seizure (HCC) Chief Complaint: Luiza May is a 67 y.o. female with chief complaint of: seizures, Reason Palliative Following:Goals of Care Plan:Follow Peripherally Code Status: Full Code Medications: Palliative Care Not Managing Any Medications Nursing: Residential Care and Skin Integrity Social Work: No Unmet Needs Spiritual Care: No Unmet Needs Pharmacy: No Unmet Needs Psychology/Psychiatry: No Unmet Needs Problem: Safety - Non-violent/Interference with Medical Treatment Restraint Goal: Free from restraint(s) (Restraint for Interference with Toll Operator) Outcome: Not Progressing Flowsheets (Taken 09/30/20231999) Free from restraint(s) (restraint for interference with medical assistant supervisor): Assess and document the continuing need for restraints Identify and implement measures to help patient regain control Problem: Knowledge Deficit Goal: Patient/family/caregiver demonstrates understanding of disease process, treatment plan, medications, and discharge instructions Outcome: Progressing Problem: Potential for Compromised Skin Integrity Goal: Skin Integrity is Maintained or Improved Outcome: Progressing Goal: Nutritional status is improving Outcome: Progressing Problem: Urinary Incontinence Goal: Perineal skin integrity is maintained or improved Outcome: Progressing Problem: Safety - Non-violent/Interference with Medical Treatment Restraint Goal: Remains free of injury from restraints (Restraint for Interference with Toll Operator) Outcome: Progressing Flowsheets (Taken 09/30/20231999) Remains free of injury from restraints (restraint for interference with medical assistant supervisor): Determine that other, less restrictive measures have been tried or would not be effective before applying the restraint Evaluate the patient's condition at the time of restraint application Inform patient/family regarding the reason for restraint Every 2 hours: Monitor safety, psychosocial status, comfort, nutrition and hydration Family Communication along with ICU L D RN-AGRICULTURE WORKER Mildred Smith Number Called: [phone] Name of Designated Family Disbursing Agent: Ameena daughter I spoke with the individual listed above Family Disbursing Agent Updated on the Following: medical updates, plans for trial extubation tomorrow however if fails would proceed with re-intubation then trach/peg. She will be here tomorrow before extubation so she can be here with mother. Provided much important history of patient. Thankful for care Images from the original note were not included. Care Management Progress Note Chart reviewed. Patient remains on [facility] ICU for seizure 09/26/2023. Consults to IP WOUND CARE NURSE CONSULT TO EVAL IP CONSULT TO DIETITIAN IP CONSULT TO NEUROLOGY IP CONSULT TO DIETITIAN IP CONSULT TO PALLIATIVE CARE Discharge Planning Barriers: Intubated/sedated. IV qtt - Versed, Precedex, levophed -off TLC CVC. OGT-NPO. Soliman. IVABX. Palliative GOC meeting today? Discharge Planning: TBD. Awaiting clinical stability and medical clearance. Will continue to follow. Discharge Milestones and Delays Expected Date/Time: 10/03/[address] discharge order Complete med reconciliation Case mgmt discharge readiness Clinical Stability Diagnsotic Workup Expected Discharge History Expected Date/Time Set By Reviewed At 10/03/2023 Renetta Barraza RN 09/29/2023 7:19 AM 10/03/2023 Renetta Barraza RN 09/28/2023 7:50 AM 10/03/2023 Renetta Barraza RN 09/27/2023 9:40 AM 10/03/2023 Yuridia Pierre DO 09/26/2023 3:07 PM Length of Stay (Days): 3 GMLOS: 5.2 Problem: Safety - Non-violent/Interference with Medical Treatment Restraint Goal: Remains free of injury from restraints (Restraint for Interference with Toll Operator) Outcome: Adequate for Discharge Goal: Free from restraint(s) (Restraint for Interference with Toll Operator) Outcome: Adequate for Discharge Care Managment Initial Assessment Date: 09/27/2023 Patient Name: Luiza May : 1955 Patient Information Source of Information: Patient Disbursing Agent Name/Contact Information: Dex (s/o), Gene (son), Ameena (dtr) Cognition/Language: Confused at baseline Permission given to speak with patient business office representative/caregiver as indicated: Confirmation of Payer with patient/family: Yes Payer Name: [employer] Medicare [place]: No Confirmation of Primary Care Physician: Confirmed PCP Name: Joy Stahl Seen in last 2 years?: Yes Primary Caregiver: Family If assistance needed, confirmed caregiver ready, willing and able to care for patient at discharge: Confirmed with: Living Arrangements Current Residence: House Number of Floors 2 Number of Entry Steps: 3 Bed/Bath Levels: Both first floor Facility: Facility Name: Plan to Return: Lives with: Spouse/significant other Support Systems: Spouse/significant other, Children, Family members Activities of Daily Living Ambulation: Assistance Bathing/Dressing: Assistance Elimination/Continence/Toileting: Assistance Feeding: Independent Who Assists with Activities of Daily Living: family Instrumental Activities of Daily Living Prescription Coverage: Yes Pharmacy Used: [facility] - [place], [place] - [phone] Medication Management: Medication dispenser Who assists with medication securing and setup?: family Transportation/Shopping: Assistance Provider Transportation/Shopping Assistance Provider Name: family Transportation Mode: Car Needs Assistance with Transportation at Discharge: Meal Preparation: Assistance Provider Meal Prep Assistance Provider Name: family Laundry/Cleaning: Assistance Provider Laundry/Cleaning Assistance Provider Name: family Finances/Bill Paying: Assistance Provider Finances/Bill Payer Assistance Provider Name: family Communication: Independent Types of Care Services/Equipment Utilized Care Services: Dialysis Type: Durable Medical Equipment: Cane, Walker [facility] [place] [place] Patient's Goal/Discharge Plan Patient expects to be discharged to: TBD Discharge Planning Actions: Continue to follow Patient's Choice Rights and [employer] and Collaborative Relationships Disclosed as Indicated for Post-Acute Care: Interdisciplinary Team Engagement: PT/OT Social Work Referral for: Additional Information: Chart reviewed. Patient admitted to [facility] ICU for seizure 09/26/2023. Consults to IP WOUND CARE NURSE CONSULT TO EVAL IP CONSULT TO DIETITIAN IP CONSULT TO NEUROLOGY PHARMACY TO DOSE VANCO Initial Assessment: Spoke with patient's family at bedside. Introduced myself and role as TCC. IA complete. Patient personal information confirmed. Patient from home with s/o. Familly assists with ADLs and iADLs. Patient has insurance, prescription coverage, and PCP. Discussed discharge planning. Discharge Planning Barrier: Intubated/sedated. IV qtt - Propofol, Levophed, TLC CVC. OGT-NPO. Soliman. IVABX. TCC notes patient will need PT/OT eval when clinically able. TCC secure messaged attending regarding orders. Discharge Plan: TBD. Awaiting clinical stability and medical clearance. Will continue to follow. Renetta Barraza RN Problem: Safety - Non-violent/Interference with Medical Treatment Restraint Goal: Free from restraint(s) (Restraint for Interference with Toll Operator) Outcome: Not Progressing Problem: Safety - Non-violent/Interference with Medical Treatment Restraint Goal: Remains free of injury from restraints (Restraint for Interference with Toll Operator) Outcome: Progressing documented in this encounter [facility] 10-10-2023 Nurse Note Pt complaining of significant pain around peg site. While assessing abdomen patient grimacing in pain. TF stopped. Dr. Irwin paged. New orders placed for IV pain medication and xray of abdomen. Awaiting results. RN attempted to change dressing change due to computer documentation stating last dressing change on 10/03/23. Dressing to internal jugular triple lumen changed on 10/05/2023. Dressing is dry, intact with no drainage or redness noted. Next dressing change on 10/12/2023. Event note: Patient had asked to go to bathroom to have a bowel movement. Had tried bedpan approximately 30min earlier without success. Patient felt she could do better if sitting on a toilet . RN checked activity order and patient ok to be oob with assist. Patient on 4L NC per baseline with sats of 100%. BSC brought to bedside. RN and student RN assisted patient to sitting at side of bed. Patient without sob so was assisted to bsc. Within minutes of patient being positioned on bsc, she began having sob and stating she couldn't breath. Patient remained on 4L NC. Sat checked and reading was in high 50's-low 60's. Patient assisted back to bed, RT notified via [employer] to come to room, RN place NIV mask over patients mouth/nose with sats increasing into 70's. GUSTABO Nixon emergently notified via secure chat to come to bedside. RT, CONGRESSIONAL DISTRICT AIDE and Dr. Hurst came to bedside, patient not maintaining adequate sat's. RT began bagging patient to maintain sats. Patient unable to answer questions or follow commands at this time. Patient intubated (See sedation Narrator). RN notified patient's daughter Ameena via phone call of situation. She was in hospital and coming to room. See orders for additional med orders. Will con't to monitor. documented in this encounter [facility] 10-07-2023 Consult note Associated Order (s): IP CONSULT TO PULMONOLOGY Pulmonary consult acknowledged. Pulmonary service to follow when patient is transferred out of ICU. Associated Order(s): IP CONSULT TO CARDIOLOGY [facility] Cardiology /Electrophysiology Consult Note Reason for Consult/Chief Complaint: Heart failure Referring provider: Lauryn Mcdonald APRN Established end user support specialist: None History of Present Illness: Luiza May is a 67 y.o. 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 Following admission echocardiogram revealed a newly decreased EF 45% (previously 55%) and apical hypokinesis. Hospital course complicated by MSSA pneumonia, anemia requiring blood transfusions and recurrent intubations on 09/26 & 10/02. She ultimately underwent tracheostomy and PEG tube placement on 10/03. On evaluation today, vitals are significant for BP 98/49, HR 95, SpO2 90s on mechanical ventilation (via trach). Labs significant for normal creatinine, potassium 3.2, and hemoglobin of 6.0 (s/p 1U pRBC). On evaluation today, the patient does not endorse any history of chest pain and attributes her current/shortness of breath to respiratory issues. 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 Decreased EF and apical hypokinesis likely due to critical illness and nonischemic cardiomyopathy in the setting of anemia and multiple comorbidities. She is at increased risk of recurrent stress cardiomyopathy given her prior episodes, which have also been attributed to severe acute illnesses and showed no evidence of coronary ischemia. Troponin on this admission have also been negative. Per patient, she has previously undergone LHC/ischemic workup at [facility] which did not show significant coronary disease. Plan: - Keep K>4, Mg>2 - Strict I/O, daily weights - Would avoid adding antihypertensives or beta-blockers at this time in the setting of acute illness and anemia - Diuresis as needed to maintain euvolemia - Recommend close follow up in HF clinic after discharge to establish outpatient management Acute anemia History of GI bleeds Acute anemia in the setting of recent procedures, likely due to blood loss. - Management per ICU team Acute on Chronic respiratory failure Asthma/COPD History of MCA stroke -Continue atorvastatin 40 Mg daily -Management per ICU team Medications: aspirin, 81 mg, Oral, Daily atorvastatin, 40 mg, Oral, Nightly bisacodyl, 10 mg, Rectal, Daily budesonide, 0.5 mg, Nebulization, Daily DULoxetine, 60 mg, Oral, Daily enoxaparin, 40 mg, SubCUTAneous, Daily escitalopram, 10 mg, Oral, Daily folic acid, 1 mg, Oral, Daily gabapentin, 300 mg, Oral, Nightly ipratropium-albuterol, 3 mL, Nebulization, Q4H levETIRAcetam, 1,000 mg, IntraVENous, BID pantoprazole (ProtoNix) 40 mg in sodium chloride (PF) 0.9 % 10 mL injection, 40 mg, IntraVENous, Nightly polyethylene glycol (PEG) 3350, 17 g, Oral, BID potassium chloride, 40 mEq, Oral, BID predniSONE, 40 mg, Oral, Daily Followed by [START ON 10/07/2023] predniSONE, 20 mg, Oral, Daily Followed by [START ON 10/09/2023] predniSONE, 10 mg, Oral, Daily Followed by [START ON 10/11/2023] predniSONE, 5 mg, Oral, Daily artificial tears, 1 drop, Both Eyes, Daily QUEtiapine, 50 mg, Oral, Nightly QUEtiapine, 50 mg, Oral, Daily Senna, 10 mL, Oral, BID stomahesive in petrolatum, , Topical, q8h thiamine (Vitamin B1) 100 mg in sodium chloride 0.9 % 100 mL IVPB, 100 mg, IntraVENous, q24h Infusion Medications: dexmedeTOMIDine, 0.1-1 mcg/kg/hr, Last Rate: 0.4 mcg/kg/hr (10/05/23 1236) ketamine 500 mg in sodium chloride 0.9 % 250 mL infusion, 0.05-2 mg/kg/hr (Ramona), Last Rate: Stopped (10/05/23 1030) norepinephrine, 1-100 mcg/min, Last Rate: 1 mcg/min (10/05/23 1032) Physical Examination: Vitals: 10/05/23 1145 10/05/23 1200 10/05/23 1215 10/05/23 1230 BP: 111/69 124/63 116/61 108/59 BP Location: Left arm Patient Position: Lying Pulse: 91 90 91 89 Resp: 21 21 Temp: 37.2 C (99 F) 37.1 C (98.8 F) 37.1 C (98.8 F) 37.2 C (99 F) TempSrc: Bladder SpO2: 98% 98% 99% 97% Weight: Height: PF: Intake/Output Summary (Last 24 hours) at 10/05/2023 1256 Last data filed at 10/05/2023 1200 Gross per 24 hour Intake 3182.7 ml Output 2375 ml Net 807.7 ml Wt Readings from Last 3 Encounters: 10/04/23 170 lb 10.2 oz (77.4 kg) 07/26/22 121 lb 9.6 oz (55.2 kg) Physical Exam GEN: NAD, ill appearing, AT/AC, MMM ENT: Oral mucosa is pink and moist CARDS: RRR, S1/S2, No R,M,G, JVD normal RESP: Trach in place, scattered ronchi, no wheezing VASC: 2+ Peripheral pulses ABD: NT, ND, BS+, PEG tube in place Extremities: Trace LE edema Skin: Warm to touch and well perfused NEURO/PSYCH: A&O x 3, no focal deficits Laboratory Tests: Recent Labs 10/03/2342310/04/2342610/05/23 0617 NA 142 140 142 K 3.9 3.4* 3.2* CL 106 103 102 CO2 30 29 33* BUN 17 15 15 CREATININE 0.48* 0.45* 0.59 EGFR >90.0 >90.0 >90.0 No results for input(s): CKTOTAL , CKMB , CKMBINDEX , TROPONINI in the last 72 hours. Recent Labs 10/03/23 04210/03/23 0937 10/04/23 0427 10/04/23 0829 10/05/23 0343 10/05/23 0617 10/05/23 1102 WBC 10.7 -- 8.2 -- -- 5.3 -- HGB 7.3* < > 6.9* 7.2* 7.5 6.0* 7.2* HCT 23.7* -- 22.0* 22.8* -- 19.3* 22.6* MCV 93.3 -- 92.4 -- -- 91.9 -- PLT 224 -- 219 -- -- 183 -- < > = values in this interval not displayed. No results found for: HGBA1C Lab Results Component Value Date TSH 1.049 10/03/2023 No results found for: CHOL No results found for: HDL No results found for: LDLCALC No results found for: TRIG No results found for: CHOLHDL No results found for: LDLCHOLESTER No results for input(s): BNP in the last 72 hours. No results for input(s): INR in the last 72 hours. Results from last 7 days Lab Units 10/01/23 0358 AST U/L 31 ALT U/L 19 No results found for: IRON , TIBC , FERRITIN Radiology: CXR: personally reviewed: Cardiac Tests Personally Reviewed: Last EKG 09/26/23 ECG 12-LEAD 10/04/2023 2:32 PM (Final) Impression Sinus rhythm Possible IWMI AU Electronically Signed On 10-04-2023 14:32:11 EDT by Jil Pedraza Signed by: Jil Pedraza MD on 10/04/2023 2:32 PM Telemetry findings: SR, HR 80s-100s Reports reviewed: Last Echo 09/26/23 TRANSTHORACIC ECHOCARDIOGRAM (TTE) COMPLETE (CONTRAST/BUBBLE/3D PRN) 09/28/2023 11:00 AM (Final) Interpretation Summary Left Ventricle: Left ventricle size is normal. Normal wall thickness. Mildly reduced left ventricular systolic function. The EF by visual approximation is 45%. Abnormal wall motion. There appears to be global hypokinesis, worse in apical segments. Right Ventricle: Right ventricle size is normal. Normal systolic function. Mitral Valve: Moderate (2+) regurgitation with a posterior directed jet. Left Atrium: Left atrium is severely dilated. LA Vol Index A/L is 50 mL/m2. No significant valvular abnormalities. Technically difficult study. Signed by: Rosalina Welch MD on 09/28/2023 11:00 AM Last Cath No results found for this or any previous visit. Last Stress Test No results found for this or any previous visit. Last EP study No results found for this or any previous visit. EF BP Date Value Ref Range Status 09/28/2023 54 (A) 55 - 100 % Final Vince Herrera MD DATE of SERVICE: 10/05/2023 Associated attestation - Paul Mcbride MD - 10/05/2023 3:33 PM EDT I, Dr. Paul Mcbride, saw and evaluated the patient on 10/05/2023. I personally obtained the starr and critical portions of the history and physical exam. I reviewed the chart, the fellow's documentation, and discussed the patient with the fellow. I agree with the fellow's medical decision making and have edited the note to reflect my clinical findings and my assessment and plan. In summary, Luiza May is a 67 yo F with a reported hx of Takotsubo cardiomyopathy. Was admitted over a week ago with seizure like activity, now s/p trace/PEG for dysphagia and ongoing respiratory issues. Echo performed (which I personally reviewed) showed moderate mitral regurgitation and mild reduction in LVEF with some probable apical hypokinesis. Pattern may be seen in Takotsubo CM. Certainly, she would be a risk for recurrence of her CM given her physical stressors. She denies any obvious symptoms of angina/chest pain. No evidence of clinical HF or volume overload. She has had some intermittent hypotension, there is no strong indication/reason to be aggressive with GDMT Cardiology will be available if needed, could consider low dose GDMT prior to discharge pending clinical status. Patient will likely follow up locally with [facility] as she has done prior Cardiology to sign off Paul Mcbride MD Department of Cardiovascular Disease, Division of Heart Failure [facility] 3:22 PM 10/05/23 Images from the original note were not included. Department of General Surgery Surgical Service - SICU Resident Consult Note 10/03/2023 CHIEF COMPLAINT: SOB Reason for Consult: Trach/Peg HISTORY OF PRESENT ILLNESS: Luiza May is a 67 y.o. female with significant past medical history of COPD, HTN, CVA, CAD, prior trach/PEG, appendectomy, cholecystectomy, who is admitted currently to the MICU service for acute respiratory failure ans seizures. Patient was extubated yesterday, but reintubated this am. Surgery was consulted for evaluation. Patient recently intubated and unable to proved further HPI General surgery was following previously for ileus and colonic distension, but this seems to have resolved as patient has been having good bowel function and has a benign abdominal exam Past Medical History: Diagnosis Date Asthma CAD (coronary artery disease) Cerebral artery occlusion with cerebral infarction (CMS/HCC) (HCC) COPD (chronic obstructive pulmonary disease) (HCC) Hypertension Past Surgical History: Procedure Laterality Date APPENDECTOMY CHOLECYSTECTOMY COLONOSCOPY COLONOSCOPY CT CHEST ANGIOGRAM W AND/OR WO IV CONTRAST 07/26/2022 CT CHEST ANGIOGRAM W AND/OR WO IV CONTRAST 07/26/[address] [facility] [address] IMAGING Medications Prior to Admission: aspirin, 81 mg, Oral, Daily atorvastatin, 40 mg, Oral, Nightly bisacodyl, 10 mg, Rectal, Daily budesonide, 0.5 mg, Nebulization, Daily ceFAZolin, 2,000 mg, IntraVENous, q8h DULoxetine, 60 mg, Oral, Daily enoxaparin, 40 mg, SubCUTAneous, Daily escitalopram, 10 mg, Oral, Daily folic acid, 1 mg, Oral, Daily gabapentin, 300 mg, Oral, Nightly ipratropium-albuterol, 3 mL, Nebulization, Q4H levETIRAcetam, 1,000 mg, IntraVENous, BID methylPREDNISolone sod suc (PF), 40 mg, IntraVENous, q24h pantoprazole (ProtoNix) 40 mg in sodium chloride (PF) 0.9 % 10 mL injection, 40 mg, IntraVENous, Nightly Phenylephrine HCl (Pressors), , , polyethylene glycol (PEG) 3350, 17 g, Oral, BID artificial tears, 1 drop, Both Eyes, Daily QUEtiapine, 25 mg, Oral, BID Senna, 10 mL, Oral, BID thiamine (Vitamin B1) 100 mg in sodium chloride 0.9 % 100 mL IVPB, 100 mg, IntraVENous, q24h dexmedeTOMIDine, 0.1-1.5 mcg/kg/hr, Last Rate: 1.5 mcg/kg/hr (10/03/23 0745) ketamine 500 mg in sodium chloride 0.9 % 250 mL infusion, 0.05-2 mg/kg/hr (Ramona) norepinephrine, 1-100 mcg/min, Last Rate: 5 mcg/min (10/03/23 1016) PRN medications: acetaminophen, hydrOXYzine pamoate, naloxone, ondansetron ODT OR ondansetron, Phenylephrine HCl (Pressors), Propylene Glycol-Glycerin, sodium chloride Allergies: Tetanus toxoid Social History Socioeconomic History Marital status: Tobacco Use Smoking status: Former Types: Cigarettes Quit date: 07/13/2013 Years since quittin.2 Vaping Use Vaping Use: Never used Substance and Sexual Activity Alcohol use: No Drug use: No Social Determinants of Health Food Insecurity: No Food Insecurity (07/26/2022) Hunger Vital Sign Worried About Running Out of Food in the Last Year: Never true Ran Out of Food in the Last Year: Never true Transportation Needs: No Transportation Needs (07/26/2022) PRAPARE - Transportation Lack of Transportation (Medical): No Lack of Transportation (Non-Medical): No Physical Activity: Unknown (07/26/2022) Exercise Vital Sign Minutes of Exercise per Session: 20 min Stress: Stress Concern Present (07/26/2022) [employer] - Occupational Stress Questionnaire Feeling of Stress : Very much Social Connections: Moderately Isolated (07/26/2022) Social Connection and Isolation Panel [NHANES] Frequency of Communication with Friends and Family: More than three times a week Frequency of Social Gatherings with Friends and Family: More than three times a week Attends Zoroastrian Services: Never Active Member of Clubs or Organizations: No Attends Club or Organization Meetings: Never Marital Status: Intimate Partner Violence: Not At Risk (07/26/2022) Humiliation, Afraid, Rape, and Kick questionnaire Fear of Current or Ex-Partner: No Emotionally Abused: No Physically Abused: No Sexually Abused: No Housing Stability: Low Risk (07/26/2022) Housing Stability Vital Sign Unable to Pay for Housing in the Last Year: No Number of Places Lived in the Last Year: 1 Unstable Housing in the Last Year: No No family history on file. REVIEW OF SYSTEMS: Review of Systems PHYSICAL EXAM: Vitals: 10/03/23 1015 BP: (!) 98/47 Pulse: Resp: Temp: SpO2: I/O last 3 completed shifts: In: 2640.7 (34.8 mL/kg) [I.V.:2640.7 (34.8 mL/kg)] Out: 865 (11.4 mL/kg) [Urine:865 (0.3 mL/kg/hr)] Weight: 75.8 kg CONSTITUTIONAL: Intubated and sedated NECK: Supple, symmetrical, trachea midline, no adenopathy LUNGS: No increased work of breathing, good air exchange CARDIOVASCULAR: Regular rate and rhythm ABDOMEN: Soft, non-distended, non-tender, no rebound, no guarding, no masses palpated, no hepatosplenomegally CHEST: no masses palpated, no axillary or supraclavicular adenopathy GENITAL/URINARY: Soliman MUSCULOSKELETAL: There is no redness, warmth, or swelling of the joints. Full range of motion noted. NEUROLOGIC: Intubated and sedated SKIN: normal skin color, texture, turgor and no redness, warmth, or swelling DATA: Results from last 7 days Lab Units 10/03/23 0937 10/03/234 10/02/23 2305 10/02/235 10/02/2344110/01/238 WBC AUTO 10*3/uL -- 10.7 -- -- 10.8* 7.4 HEMOGLOBIN g/dL -- 7.3* -- -- 7.7* 7.6* HEMOGLOBIN BG g/dl 8.3 -- 8.0 < > -- -- HEMATOCRIT % -- 23.7* -- -- 25.4* 24.7* PLATELETS AUTO 10*3/uL -- 224 -- -- 178 153 < > = values in this interval not displayed. Results from last 7 days Lab Units 10/03/2342310/02/2344110/01/23 0358 SODIUM mmol/L 142 143 143 POTASSIUM mmol/L 3.9 3.3* 3.5 CHLORIDE mmol/L 106 104 105 CO2 mmol/L BUN mg/dL 17 16 14 CREATININE mg/dL 0.48* 0.64 0.51* GLUCOSE mg/dL 109* 104* 149* CALCIUM mg/dL 9.1 9.3 9.2 Results from last 7 days Lab Units 10/01/23 0358 09/28/23 0639 09/27/23 0516 ALK PHOS U/L 78 101 150* BILIRUBIN TOTAL mg/dL 0.3 0.6 0.3 BILIRUBIN DIRECT mg/dL 0.0 0.0 0.0 PROTEIN TOTAL g/dL 7.0 6.0* 5.7* ALT U/L 19 62* 100* AST U/L 31 47* 126* No results found for: LIPASE Results from last 7 days Lab Units 10/03/23 0424 10/02/23 0442 10/01/23 0358 MAGNESIUM mg/dL 1.9 2.0 1.9 IMAGING: All imaging reviewed ASSESSMENT AND PLAN: This is a 67 y.o. female with acute respiratory distress with failed extubation - Add on for OR for open tracheostomy and peg tube placement tomorrow - Hold tube feeds at [place] - Medical management per primary Patient discussed with attending, Dr. Ledesma. Alida Romano, General Surgery PGY-5 10/03/23 10:22 AM Pager # [phone] Associated attestation - Elda Ledesma MD - 10/11/2023 2:22 PM EDT ATTENDING ADDENDUM Patient Active Problem List Diagnosis Alcohol abuse Cerebrovascular accident (CVA) due to embolism of cerebral artery (HCC) NSTEMI (non-ST elevated myocardial infarction) (HCC) History of hematemesis Hemorrhage of gastrointestinal tract Acute deep vein thrombosis (DVT) of distal vein of right lower extremity (HCC) Encephalopathy Posterior reversible encephalopathy syndrome (PRES) COPD exacerbation (HCC) Severe malnutrition (CMS/HCC) (HCC) Seizure (HCC) Acute respiratory failure with hypoxia and hypercapnia (HCC) I personally supervised the resident or L D RN/PA-C in the evaluation and development of a treatment plan for this patient on the same day of service as above. I personally discussed the review of systems and interviewed the patient along with performing a physical examination. In addition, I discussed the patient's condition and treatment options with him/her when possible. All of the patient's questions were answered and family updated when appropriate and possible. I performed a physical exam and ROS on the same date of service as above. A complete review of systems was obtained and is negative except as stated in HPI and/or Subjective Section. My findings agree with the above note except for any details corrected below. ASSESSMENT: 67F with significant medical and surgical history currently in MICU for acute on chronic respiratory failure, failed trial of extubation and re-intubated this morning. Surgery consulted for trach/PEG. She has had a previous tracheostomy (07/2022, decanulated several months later). Otherwise, she has palpable bony landmarks and is appropriate for percutaneous approach. She has history of abdominal surgery (lap appendectomy, cholecystectomy) and ACS was following her for ileus and colonic distention, which appears to have improved. CT A/P from 09/30 shows significantly dilated colon and rectum, with rectal stool burden. AXR from today shows persistently dilated loops of colon, however she is having bowel movements, abdomen is non-tender. She is appropriate for perc trach, but PEG may be safer under laparoscopic visualization due to colon dilation. I will defer the final approach decision to my partner Dr. Muller who will be taking over for me in the ICU starting 10/03 and performing the procedure. Plan for tentative tracheostomy/PEG in OR tomorrow, 10/03 Level of Medical Decision Making: risk of morbidity from additional diagnostic testing or treatment due to need for re-do tracheostomy, PEG [x]High []Moderate []Low Complexity: Chronic illness with severe exacerbation, progression, or side effect of tx (HIGH) Risk: Decision regarding elective major surgery without limited identified patient or procedure risk factors (MOD) Personally Reviewed/Independently interpreted patient's: [x]Epic notes [x]Radiology studies [x]Labs []EKG []Ordering tests []Other Discussed/ With: [x]Patient/Family []RN []Consultants []SW/TCC []Other I spent total time of 80 minutes reviewing previous notes, test results, and face to face with Luiza May discussing the diagnosis and importance of compliance with the treatment plan as well as documenting on the day of the visit. Elda Ledesma MD Division of Trauma Department of Surgery [facility] Associated Order(s): IP CONSULT TO GENERAL SURGERY Images from the original note were not included. Department of General Surgery Surgical Service - ACS Resident Consult Note 10/01/2023 CHIEF COMPLAINT: No chief complaint on file. Reason for Consult: Abd distention, concern for bowel obstruction HISTORY OF PRESENT ILLNESS: Luiza May is a 67 y.o. female with significant past medical history of COPD, HTN, CVA, CAD, prior trach/PEG, appendectomy, cholecystectomy, who is admitted currently to the MICU service for acute respiratory failure ans seizures. Over the last few days she was noted to have increased abdominal distention, and mouthed to the MICU team that she needs to poop . They obtained a KUB that showed colonic distention, therefore they obtained a CT scan. Surgery was consulted for evaluation. Patient denies any significant abdominal pain. She feels bloated but no other major complaints, no nausea or vomiting. Does not usually have any issues with constipation. Further inquiry limited by communication while intubated. On evaluation patient was comfortable appearing, awake and interactive while intubated. Labs reviewed significant for: improved leukocytosis (7.4 from 11.4), hgb 7.6 (stable). Imaging demonstrated high stool burden particularly in the rectum, rectal wall thickening and possible a few dots of pneumatosis of the rectal wall. Past Medical History: Diagnosis Date Asthma CAD (coronary artery disease) Cerebral artery occlusion with cerebral infarction (CMS/HCC) (HCC) COPD (chronic obstructive pulmonary disease) (HCC) Hypertension Past Surgical History: Procedure Laterality Date APPENDECTOMY CHOLECYSTECTOMY COLONOSCOPY COLONOSCOPY CT CHEST ANGIOGRAM W AND/OR WO IV CONTRAST 07/26/2022 CT CHEST ANGIOGRAM W AND/OR WO IV CONTRAST 07/26/[address] [facility] [address] [facility] Medications Prior to Admission: No current facility-administered medications on file prior to encounter. Current Outpatient Medications on File Prior to Encounter Medication Sig albuterol 108 (90 Base) MCG/ACT inhaler Inhale 2 puffs as needed. 4 times daily as needed ARIPiprazole (Abilify) 2 MG tablet Take 2 mg by mouth in the morning. atorvastatin (Lipitor) 40 MG tablet Take 1 tablet by mouth Nightly. bisacodyl (Dulcolax) 10 MG suppository Insert 10 mg into the rectum Daily as needed. budesonide (Pulmicort) 0.5 MG/2ML nebulizer solution Take 2 mL (0.5 mg) by nebulization in the morning. Rinse mouth with water after use to reduce aftertaste and incidence of candidiasis. Do not swallow.. Do not start before August 05, 2022. cholecalciferol (Vitamin D-3) 25 MCG (1000 UT) capsule Take 1,000 Units by mouth in the morning. DULoxetine (Cymbalta) [address] capsule Take 60 mg by mouth in the morning. folic acid (Folvite) 1 MG tablet Take 1 mg by mouth in the morning. hydrogen peroxide 3 % external solution Apply topically as needed (Trach care). levalbuterol (Xopenex) 1.25 MG/3ML nebulizer solution Take 3 mL (1.25 mg) by nebulization in the morning and 3 mL (1.25 mg) at noon and 3 mL (1.25 mg) in the evening. LORazepam (Ativan) 0.5 MG tablet Take 1 tablet (0.5 mg) by mouth every 6 hours as needed for anxiety for up to 10 days. losartan (Cozaar) 25 MG tablet Take 25 mg by mouth in the morning. polyvinyl alcohol (Liquifilm Tears) 1.4 % ophthalmic solution Administer 1 drop into both eyes if needed for dry eyes. sennosides (Senokot) 8.6 MG tablet Take 8.6 mg by mouth in the morning. tiotropium (Spiriva) [address] 18 mcg into inhaler and inhale. Allergies: Tetanus toxoid Social History Socioeconomic History Marital status: Tobacco Use Smoking status: Former Types: Cigarettes Quit date: 07/13/2013 Years since quittin.2 Vaping Use Vaping Use: Never used Substance and Sexual Activity Alcohol use: No Drug use: No Social Determinants of Health Food Insecurity: No Food Insecurity (07/26/2022) Hunger Vital Sign Worried About Running Out of Food in the Last Year: Never true Ran Out of Food in the Last Year: Never true Transportation Needs: No Transportation Needs (07/26/2022) PRAPARE - Transportation Lack of Transportation (Medical): No Lack of Transportation (Non-Medical): No Physical Activity: Unknown (07/26/2022) Exercise Vital Sign Minutes of Exercise per Session: 20 min Stress: Stress Concern Present (07/26/2022) [employer] - Occupational Stress Questionnaire Feeling of Stress : Very much Social Connections: Moderately Isolated (07/26/2022) Social Connection and Isolation Panel [NHANES] Frequency of Communication with Friends and Family: More than three times a week Frequency of Social Gatherings with Friends and Family: More than three times a week Attends Zoroastrian Services: Never Active Member of Clubs or Organizations: No Attends Club or Organization Meetings: Never Marital Status: Intimate Partner Violence: Not At Risk (07/26/2022) Humiliation, Afraid, Rape, and Kick questionnaire Fear of Current or Ex-Partner: No Emotionally Abused: No Physically Abused: No Sexually Abused: No Housing Stability: Low Risk (07/26/2022) Housing Stability Vital Sign Unable to Pay for Housing in the Last Year: No Number of Places Lived in the Last Year: 1 Unstable Housing in the Last Year: No No family history on file. REVIEW OF SYSTEMS: Review of Systems Constitutional: Negative for chills and fever. HENT: Negative for sore throat and trouble swallowing. Gastrointestinal: Positive for abdominal distention and rectal pain. Negative for abdominal pain, nausea and vomiting. Skin: Negative for color change and rash. Neurological: Positive for seizures. Negative for tremors and weakness. Psychiatric/Behavioral: Negative for agitation and confusion. PHYSICAL EXAM: Vitals: 10/01/23 1700 BP: 113/96 Pulse: 112 Resp: 19 Temp: 37.8 C (100 F) SpO2: 98% I/O last 3 completed shifts: In: 5754.7 (79.8 mL/kg) [I.V.:3926.7 (54.5 mL/kg); NG/GT:1670; IV Piggyback:158] Out: 1984 (27.5 mL/kg) [Urine:1984 (0.8 mL/kg/hr)] Weight: 72.1 kg CONSTITUTIONAL: awake, alert, cooperative, no apparent distress NECK: Supple, symmetrical, trachea midline, no adenopathy LUNGS: Intubated, MV CARDIOVASCULAR: Regular rate and rhythm ABDOMEN: Soft, moderately distended, non-tender to palpation. CHEST: no masses palpated, no axillary or supraclavicular adenopathy RECTUM: solid and liquid stool evacuated for rectal vault. No masses palpated. Disimpacted moderate amount of stool. Noted mild anal stenosis. MUSCULOSKELETAL: There is no redness, warmth, or swelling of the joints. NEUROLOGIC: Awake, alert, oriented to name, place and time. SKIN: normal skin color, texture, no redness, warmth, or swelling DATA: CBC: Lab Results Component Value Date WBC 7.4 10/01/2023 RBC 2.68 (L) 10/01/2023 HGB 7.6 (L) 10/01/2023 HGB 8.7 09/30/2023 HCT 24.7 (L) 10/01/2023 MCV 92.2 10/01/2023 MCH 28.4 10/01/2023 MCHC 30.8 10/01/2023 RDW 14.6 10/01/2023 PLT 153 10/01/2023 MPV 11.1 10/01/2023 BMP: Lab Results Component Value Date NA 143 10/01/2023 K 3.5 10/01/2023 CL 105 10/01/2023 CO2 30 10/01/2023 BUN 14 10/01/2023 CREATININE 0.51 (L) 10/01/2023 CALCIUM 9.2 10/01/2023 GLUCOSE 149 (H) 10/01/2023 Hepatic Function Panel: Lab Results Component Value Date ALKPHOS 78 10/01/2023 ALT 19 10/01/2023 AST 31 10/01/2023 PROT 7.0 10/01/2023 BILITOT 0.3 10/01/2023 BILIDIR 0.0 10/01/2023 PT/INR: No results found for: PROTIME , INR Troponin: No results found for: TROPONINI LIPASE: No results found for: LIPASE IMAGING: CT abdomen pelvis wo IV contrast Patient [facility]UIZA MAY : 1955 [id number] Exam Date/Time: 10/01/2023 13:51 Procedure: CT ABDOMEN PELVIS WO IV CONTRAST Ordering Provider: SMITH TIFFANY Reason For Exam: Bowel obstruction suspected HISTORY: Bowel obstruction suspected Noncontrast sections are performed through the abdomen and pelvis. Dose reduction was employed with automated exposure control. FINDINGS: 1. Dilatation of the colon with distended rectum with stool (possible fecal impaction) with wall thickening of the rectum with what appears to be a small amount of pneumatosis in the anterior rectal wall compatible with proctitis. 2. Small bilateral pleural effusions with adjacent atelectatic changes lower lung smith. 3. Subcutaneous edema both flanks and dependent back, moderate aortoiliac calcific atherosclerosis, NGT/Soliman catheter, mild superior endplate depression T12 with Schmorl's node. Report Dictated on Electronically Signed By: Pushpa Sapp MD Electronically Signed Date/Time: 10/01/2023 2:12 PM EDT XR abdomen 1 view Narrative: Patient Name: LUIZA MAY : 1955 Exam Date/Time: 10/01/2023 09:10 Procedure: XR ABDOMEN 1 VIEW Ordering Provider: SMITH TIFFANY Reason For Exam: abd distention Examination: Abdomen 1 view Indication: abd distention Findings: NG tube tip overlies expected distal stomach. Numerous large dilated loops of bowel are present, likely both large and small bowel. Small osteophytes of the spine are present at multiple levels. Impression: Impression: Significant gaseous distention of the bowel, presumed obstruction. Large portion of the dilated bowel loops appear to be colonic and Eli's is a consideration. Follow-up recommended. Report Dictated on Electronically Signed By: Dary Hussein MD Electronically Signed Date/Time: 10/01/2023 9:02 AM EDT XR chest 1 view Narrative: Patient Name: LUIZA MAY : 1955 Exam Date/Time: 10/01/2023 05:28 Procedure: XR CHEST 1 VIEW Ordering Provider: SMITH TIFFANY Reason For Exam: resp failure Examination: Portable chest Indication: resp failure Comparison: Previous day Findings: Cardiac silhouette is enlarged. Support devices are similar. Probable chronic interstitial changes present. Subtle basilar infiltrates not excluded. Follow-up recommended. Impression: Impression: As above. Report Dictated on Electronically Signed By: Dary Hussein MD Electronically Signed Date/Time: 10/01/2023 8:18 AM EDT ASSESSMENT AND PLAN: This is a 67 y.o. female with colonic distention and heavy rectal stool burden - Recommend NPO, ok for meds via OGT - Continue multimodal bowel regimen, changed suppositories to daily - Hold tube feeds - will consider gastrografin enema in coming days - OK to extubate patient as indicated per MICU - Surgery to follow Patient discussed with attending, Dr. Ledesma. Ema Buck MD General Surgery PGY-2 10/01/23 5:32 PM Pager # [phone] This note may have been dictated using [employer] Edition 2.6 and/or [employer] Voice Recognition Feature. The document was proofread; however, unrecognized voice recognition pony worker errors may be present. Associated attestation - Elda Ledesam MD - 10/08/2023 4:21 PM EDT I saw and evaluated the patient and I agree with the assessment and the plan as documented by the resident below. Elda Ledesma MD Division of Trauma Department of Surgery [facility] Associated Order(s): IP CONSULT TO PALLIATIVE CARE Images from the original note were not included. Palliative Care Initial Consult Chief Complaint: Luiza May is a 67 y.o. female with chief complaint of respiratory failure. Palliative Care is actively following. Assessment/Plan Acute on chronic respiratory failure - hx COPD, prior trach and peg - FiO2: 50%, peep 10, rate 14, breathing above vent - per ICU: budesonide nebs, cefazolin, duonebs, methylprednisolone, midazolam gtt, prn fentanyl Agitation/anxiety - per ICU precedex gtt, duloxetine, prn hydroxyzine Seizures - Per ICU: levetiracetam HX CVA/SDH - [facility] resided at home with s/o - PT/OT when able Risk for constipation - due to immobility - schedule polyethylene glycol HX ETOH abuse - no longer active drinker - per ICU: folic acid and thiamine Palliative Care Encounter -full code - without LW or HCPOA - - Daughter Ameena listed as emergency contact, will need to confirm how many children Luiza has for NOK decision-making, hopeful in upcoming days Luiza can be participant in conversations - no family at bedside currently - will continue to follow for ongoing monitoring of progression of mentation - will continue to evaluate test results related to Respiratory Failure, medication effectiveness for mentation , response to treatment of Respiratory Failure - follow Total of 65 minutes spent on this encounter including Chart review, Patient visit and exam, Documentation in EHR, Care coordination, and Communicating with primary attending or other consultants. Discharge planning: Not ready for discharge due to medical instability Patient meets criteria for general inpatient hospice care including the following: N/A - Palliative Care Patient Referrals to: None Discussed patient and the plan of care with the other interdisciplinary team (IDT) members of Palliative Care Team, and with Primary Attending, Patient, and Floor Nurse Insert attestation statement here if applicable (.disupervision) or (.npattest) I have discussed the patient's case and plan of care with my collaborating physician Dr. Bell Subjective: Hospital days prior to consult: 2 Trauma Consult: no. (If yes, please add .traumapall dotphrase for tracking purposes.) Subjective/Events Luiza May is a 67 y.o. female living at home with s/o, PMHx includes: COPD, prior trach/peg 07/2022, HFpEF, takotsubo cardiomyopathy, HTN, fall last year with SDH requiring R crani/evacuation, anxiety, ETOH abuse, seizures, brought to [facility] for seizures however supratherapeutic dilantin level, hypercarbic requiring intubation and transfer to [facility] ICU level of care. Was successfully extubated however within a few hours with difficulty oxygenating requiring re-intubation. Palliative care consulted for goals of care Patient intubated, sedated on 9mg/hr midazolam, restrained on vent does awaken to answer simple yes and no questions before returning to [facility]. Without pain, CP, abdominal pain, breathing not labored, no evidence of nausea, vomiting without BM since admission 3 days ago Pain Assessment (If Pain Scale >0) Denies pain Goals of care:Continue Current Management Functional Assessment: PPS: 30% Advance Directives: Full Code Surrogate: Child Prognosis: unknown Spiritual assessment: No spiritual distress identified Bereavement and grief: Grief Issues Not Identified Past Medical History: Diagnosis Date Asthma CAD (coronary artery disease) Cerebral artery occlusion with cerebral infarction (CMS/HCC) (HCC) COPD (chronic obstructive pulmonary disease) (HCC) Hypertension Past Surgical History: Procedure Laterality Date APPENDECTOMY CHOLECYSTECTOMY COLONOSCOPY COLONOSCOPY CT CHEST ANGIOGRAM W AND/OR WO IV CONTRAST 07/26/2022 CT CHEST ANGIOGRAM W AND/OR WO IV CONTRAST 07/26/[address] [facility] [address] IM[facility]ING No family history on file. Unable to obtain family history due to patient intubated Allergies Allergen Reactions Tetanus Toxoid Swelling Review of Systems ROS: See palliative care ROS/ESAS below; All other systems were reviewed and are negative. Canones Symptom Assessment Score Canones Score Pain Score 0 Tiredness Score 8 Nausea Score 0 Depression Score 0 Anxiety Score 0 Drowsiness Score 8 Anorexia Score (0= eating well, 10= not eating) 10 Wellbeing Score (10= worst sense of well-being) 10 Constipation 3 Dyspnea Score (0= no shortness of breath) 10 FLACC Scale (For Pain Assessment of the Non-Verbal Patient) Nods head no to pain Assessed by: provider. Social history: status: no Marital status: Living status: with partner / significant other Work history: unknown Advance Care Planning: The patient has capacity to make healthcare and advanced care planning decisions No The patient's identified surrogate decision maker is Child. Ongoing Family Meeting: Participants: none held Family meeting was held to discuss:N/A Objective: Physical Exam BP 121/63 Pulse 65 Temp 37.1 C (98.8 F) Resp 22 Ht 5' 2 (1.575 m) Wt 156 lb (70.8 kg) SpO2 100% PF 48 L/min BMI 28.53 kg/m Physical Exam Vitals and nursing note reviewed. Constitutional: Appearance: She is obese. She is ill-appearing. Interventions: She is sedated, intubated and restrained. HENT: Head: Normocephalic and atraumatic. Mouth/Throat: Mouth: Mucous membranes are moist. Eyes: General: Right eye: No discharge. Left eye: No discharge. Cardiovascular: Rate and Rhythm: Normal rate and regular rhythm. Pulses: Normal pulses. Heart sounds: Normal heart sounds. No murmur heard. Comments: No edema B post tib/dorsalis pedis palpable Pulmonary: Effort: Pulmonary effort is normal. She is intubated. Breath sounds: Normal breath sounds. Abdominal: General: Bowel sounds are normal. There is no distension. Palpations: Abdomen is soft. There is no mass. Genitourinary: Comments: Soliman to gravity Musculoskeletal: Right lower leg: No edema. Left lower leg: No edema. Skin: General: Skin is warm and dry. Neurological: Mental Status: She is lethargic. Psychiatric: Comments: Slight agitation Current Medications: Inpatient medications reviewed: yes Home medications reviewed: yes OARRS Reviewed: Yes-no reportable medications 24 Hour PRN Meds: intubation medications reviewed, fentanyl 50 mcg times 5 Results/Verification of Data Review Objective data reviewed (be specific which labs, imaging reports with dates reviewed): MAR/vitals/labs/CXR report reviewed 09/29/23 09/27/23: MRI brain report reviewed Data in Support of Terminal Illness: Is patient hospice appropriate? TBD Transition Note Initiated: yes. Associated Order(s): IP CONSULT TO DIETITIAN Nutrition Assessment Type and Reason for Visit: Initial, Consult (TF ordering and management) Nutrition Recommendations/Plan: Recommend for EN: Vital 1.5 @ 35 mls/hour = 1260 kcals, 56g protein, 641 mls free H20 = 25 kcals/kg + 1.12g protein/kg IBW. Monitor EN progression/tolerance. Monitor nutritional status. Malnutrition Assessment: Malnutrition Status: Severe malnutrition (per RD assessment 07/26/23.) Context: Chronic Illness Findings of the 6 clinical characteristics of malnutrition: Energy Intake: (receives nutrition via EN (per assessment 07/28)) Weight Loss: Greater than 7.5% over 3 months (12.2 % loss of UBW x 4 months (07/26/23)) Body Fat Loss: Severe body fat loss Orbital, Buccal region Muscle Mass Loss: Severe muscle mass loss Temples (temporalis), Hand (interosseous) Fluid Accumulation: Software Requirements Engineer Strength: Not Performed Nutrition Assessment: Pt is a 57-odhi-tza-female with PMH significant for COPD (2L), previous trach, HFpEF, stroke with residual dysphagia (previous PEG), breast cancer, HTN, depression, recent traumatic parafalcine SDH Aug 2023 presented to OSH 09/25 with GTC seizures. Found to have respiratory failure as well (pH 7.14, pCO2 137), placed on NIV and required intubation. Dilantin level reported to be subtherapeutic. Transferred to [facility] for further care. RD visited pt; she continues on vent, appeared agitated, RN entered room to address. Estimated Daily Nutrient Needs: Energy Requirements Based On: Kcal/kg Weight Used for Energy Requirements: Ramona Weight for Energy Calculation (kg): 50 kg Total Energy Requirements (kcals/day): 25-30 kcals/kg = 5894-8210 kcals/day Weight Used for Protein Requirements: Ramona Weight in Kg Used for Protein Requirements: 50 kg Estimated Total Protein (g/day): 1.2-1.4g protein/kg = 60-70g protein/day Estimated Daily Total Fluid (ml/day): per MD Nutrition Related Findings: +BS, abd soft, Nacho 14. Wound Type: (Left hip, left heel) Net IO Since Admission: 282.52 mL [09/27/23 1731] Current Nutrition Therapies: NPO diet with enteral medications Current Oral Intake Average Meal Intake: NPO Average Supplements Intake: NPO Anthropometric Measures: Height: 157.5 cm (5' 2.01 ) Current Body Weight: 72.2 kg (159 lb 2.8 oz) Weight Source: Bed Scale Ramona Body Weight (lbs) (Calculated): 110 lbs Ramona Body Weight (Kg) (Calculated): 50 kg % Ramona Body Weight (Calculated): 144.7 % BMI (kg/m2) (Calculated): 29.1 BMI Categories: Overweight (BMI 25.0-29.9) Wt Readings from Last 10 Encounters: 09/27/23 72.2 kg (159 lb 2.8 oz) 07/26/22 55.2 kg (121 lb 9.6 oz) LABS: Recent Labs 09/26/23 1600 09/27/23 0516 NA 142 139 K 4.2 3.6 CL 101 101 CO2 40* 34* BUN 16 14 CREATININE 0.50* 0.54 GLUCOSE 114* 103* CALCIUM 8.1* 8.3* MG 1.7 1.6 PHOS 0.9* 1.0* Phos - very low - 30 mmol bolus Recent Labs 09/27/23 0516 AST 126* ALT 100* BILITOT 0.3 ALKPHOS 150* Nutrition Diagnosis: Inadequate energy intake, Altered GI function related to impaired respiratory function as evidenced by NPO or clear liquid status due to medical condition, intubation Nutrition Interventions: Nutrition Education/Counseling: No recommendation at this time Coordination of Nutrition Care: Continue to monitor while inpatient Goals: Goals: Initiate nutrition support, by next RD assessment Nutrition Monitoring and Evaluation: Food/Nutrient Intake Outcomes: Enteral Nutrition Intake/Tolerance Physical Signs/Symptoms Outcomes: Biochemical Data, GI Status, Weight, Skin, Nutrition Focused Physical Findings, Hemodynamic Status, Fluid Status or Edema Discharge Planning: Too soon to determine Jamila Wiley RD,LD,[facility] Contact: *[phone] or Markit Chat Associated Order(s): IP WOUND CARE NURSE CONSULT TO EVAL Images from the original note were not included. [facility] CONSULT Note Luiza May AGE: 67 y.o. GENDER: female : 1955 Subjective: HISTORY of PRESENT ILLNESS HPI Luiza May is a 67 y.o. female who presents for a wound consult. HPI: Ms. May is a 67yo F with PMHx of COPD with Chronic Hypoxic respiratory failure on 2L of Oxygen and BiPAP at night (poor compliance) s/p tracheostomy (2022), HFpEF with Takotsubo Cardiomyopathy, CVA with chronic dysphagia and aspiration on altered diet with prior PEG tube (2022), hemorrhagic CVA s/p Surgical intervention at [facility] (2021), GERD, h/o VTE, Hypertension, depression, anxiety, h/o Breast Cancer, former EtOH abuse, Seizure disorder on Dilantin was sent to [facility] from [facility] for management of Encephalopathy secondary to Acute on chronic Hypoxic Hypercapnic respiratory failure and what seem to be a break through seizure. Wound Care consulted for left heel, left forearm and lip. PAST MEDICAL HISTORY Past Medical History: Diagnosis Date Asthma CAD (coronary artery disease) Cerebral artery occlusion with cerebral infarction (CMS/HCC) (HCC) COPD (chronic obstructive pulmonary disease) (HCC) Hypertension PAST SURGICAL HISTORY Past Surgical History: Procedure Laterality Date APPENDECTOMY CHOLECYSTECTOMY COLONOSCOPY COLONOSCOPY CT CHEST ANGIOGRAM W AND/OR WO IV CONTRAST 07/26/2022 CT CHEST ANGIOGRAM W AND/OR WO IV CONTRAST 07/26/[address] [facility] [address] [facility] FAMILY HISTORY No family history on file. SOCIAL HISTORY Social History Tobacco Use Smoking status: Former Types: Cigarettes Quit date: 07/13/2013 Years since quittin.2 Vaping Use Vaping Use: Never used Substance Use Topics Alcohol use: No Drug use: No ALLERGIES Allergies Allergen Reactions Tetanus Toxoid Swelling MEDICATIONS No current facility-administered medications on file prior to encounter. Current Outpatient Medications on File Prior to Encounter Medication Sig Dispense Refill albuterol 108 (90 Base) MCG/ACT inhaler Inhale 2 puffs as needed. 4 times daily as needed ARIPiprazole (Abilify) 2 MG tablet Take 2 mg by mouth in the morning. atorvastatin (Lipitor) 40 MG tablet Take 1 tablet by mouth Nightly. bisacodyl (Dulcolax) 10 MG suppository Insert 10 mg into the rectum Daily as needed. budesonide (Pulmicort) 0.5 MG/2ML nebulizer solution Take 2 mL (0.5 mg) by nebulization in the morning. Rinse mouth with water after use to reduce aftertaste and incidence of candidiasis. Do not swallow.. Do not start before August 05, 2022. 60 mL 11 cholecalciferol (Vitamin D-3) 25 MCG (1000 UT) capsule Take 1,000 Units by mouth in the morning. DULoxetine (Cymbalta) [address] capsule Take 60 mg by mouth in the morning. folic acid (Folvite) 1 MG tablet Take 1 mg by mouth in the morning. hydrogen peroxide 3 % external solution Apply topically as needed (Trach care). levalbuterol (Xopenex) 1.25 MG/3ML nebulizer solution Take 3 mL (1.25 mg) by nebulization in the morning and 3 mL (1.25 mg) at noon and 3 mL (1.25 mg) in the evening. 0 LORazepam (Ativan) 0.5 MG tablet Take 1 tablet (0.5 mg) by mouth every 6 hours as needed for anxiety for up to 10 days. 30 tablet 0 losartan (Cozaar) 25 MG tablet Take 25 mg by mouth in the morning. polyvinyl alcohol (Liquifilm Tears) 1.4 % ophthalmic solution Administer 1 drop into both eyes if needed for dry eyes. sennosides (Senokot) 8.6 MG tablet Take 8.6 mg by mouth in the morning. tiotropium (Spiriva) [address] 18 mcg into inhaler and inhale. REVIEW OF SYSTEMS Pertinent items are noted in HPI. Objective: BP 117/55 Pulse (!) 130 Temp (!) 38.1 C (100.6 F) Resp 21 Ht 1.575 m (5' 2 ) Wt 72.2 kg (159 lb 2.8 oz) SpO2 100% BMI 29.11 kg/m PHYSICAL EXAM General appearance: in no apparent distress, alert, and cooperative Skin: warm and dry Pulmonary: in no respiratory distress, intubated Lip: 0.6cmx0.5cm. Scab present. No drainage. Periwound fragile Left heel: Blanchable pink tissue. No openings. No drainage. Periwound fragile Left forearm: 1.0cmx2.5cmx0.1cm. Celada tissue noted. Scant serosang drainage. Periwound fragile with bruising. LABS CBC: Lab Results Component Value Date WBC 8.5 09/27/2023 HGB 8.8 (L) 09/27/2023 HGB 10.4 09/26/2023 HCT 30 (L) 09/27/2023 HCT 29.1 (L) 09/27/2023 MCV 94.5 09/27/2023 PLT 147 09/27/2023 BMP: Lab Results Component Value Date NA 139 09/27/2023 K 3.6 09/27/2023 CL 101 09/27/2023 CO2 34 (H) 09/27/2023 PHOS 1.0 (L) 09/27/2023 BUN 14 09/27/2023 CREATININE 0.54 09/27/2023 PT/INR: No results found for: PROTIME , INR Prealbumin: No results found for: PREALBUMIN Albumin:No components found for: LABALBU Sed Rate:No results found for: SEDRATE Micro: No components found for: BC Assessment/Plan: Lip: Abrasion - Leave CHECO, Monitor every shift Left heel: PREVENTION - follow hospital protocol for prevention Left forearm: Skin tear - Clean with NS, apply adaptic then cover with foam dressing daily and PRN Nutritional support Wound Care to follow Recommend to follow up at [facility] wound care center after hospital discharge. Any questions or concerns please secure chat [facility] wound/ostomy . Thank you for the consult! I personally obtained the starr and critical portions of the history and physical exam. I reviewed the labs, imaging studies, and electronic medical record. I reviewed the chart documentation and discussed the patient with treatment team members. I have edited the note to reflect my clinical findings and my assessment and plan. Please note, the time of this note does not reflect the time I saw this patient today, but the time of this documentaton. Portions of this note including HPI, ROS, impression/plan, and examination may have been copied forward from admission to today as to provide important historical information essential in contributing to medical decision making. Documentation has been reviewed and edited as necessary to support clinical decision making for today's visit and to reflect my own independent evaluation of this patient. Decision making for today's visit and to reflect my own independent evaluation of this patient. Images from the original note were not included. Pharmacy Managed Vancomycin Dosing Service Consult Note Consult Date: 09/27/23 Patient Name: Luiza May Allergies: Tetanus toxoid Age: 67 y.o. Sex: female Ht: Height: 157.5 cm (5' 2 ) TBW: Weight: 72.2 kg (159 lb 2.8 oz) BMI: Body mass index is 29.11 kg/m . DW: 72.2 kg Lab Results Component Value Date CREATININE 0.54 09/27/2023 CREATININE 0.50 (L) 09/26/2023 BUN 14 09/27/2023 BUN 16 09/26/2023 WBC 8.5 09/27/2023 WBC 8.3 09/26/2023 Calculated CrCl: >80 mL/min Consulted By: Mildred Smith NP Random: with AM labs on 09/28/23 Infectious Diagnosis: pneumonia HAP (AUC Goal 400-600 mg/L*hr) Antimicrobials: Cefepime 09/27/23+ Vancomycin 09/27/23+ Assessment/Plan: Start Vancomycin 1500 mg once followed by vancomycin 1250 mg Q 12 hours based on patient age, weight, renal function, and infectious diagnosis (17.3 mg/kg), predicted AUC 580 mg/L*hr. Will assess random level on 09/28/23 with AM labs and adjust as appropriate. Trend serum creatinine. Orders placed. Thank you for this consult. Please page/call with questions. Date: 09/27/23 Time: 8:56 AM Kimberlee Winter RPh (available on [email or web address]) Associated Order(s): IP CONSULT TO NEUROLOGY INITIAL CONSULT NOTE. NEUROCRITICAL CARE Patient Name: Luiza May Patient : 1955 Acct: [id number] Date of Admission: 09/26/2023 Room/Bed: T2-215/T2-215 A PCP: Joy Stahl History of Present Ilness: 67 y.o. is a patient with the chief Complaint of: Seizure-like activity witnessed by She is a direct transfer from [facility] due to seizure-like activity witnessed by her . On review of [facility] records, her was helping her go to the bathroom when her legs gave out and she fell to the floor with rhythmic shaking . She has known seizure history disorder was on Dilantin 100 mg every 8 hours. Dilantin level was measured at [facility] at 4.6. Per chart review she has had no breakthrough seizures in the last 15 months but has history of non-complinace. She had recent hospitalization 08/2023 due to fall leading to SDH, non-operatively managed. She had been on DAPT prior to 08/2023 subdural hemorrhage. On arrival to the hospital she had an ABG which showed pH of 7.[address] head at 0036 showed no acute intracranial abnormality. She was placed on AutoPap without improvement of pCO2 and eventually intubated for respiratory support and airway protection. She was given 970mg dilantin x1, Keppra 1g, and started on propofol, versed and fentanyl following intubation. Her daughter's number is listed in the chart and was called for further clarification of history however she did not order picker/assembler the phone. Past Medical History: Past Medical History: Diagnosis Date Asthma CAD (coronary artery disease) Cerebral artery occlusion with cerebral infarction (CMS/HCC) (HCC) COPD (chronic obstructive pulmonary disease) (HCC) Hypertension Past Surgical History: Past Surgical History: Procedure Laterality Date APPENDECTOMY CHOLECYSTECTOMY COLONOSCOPY COLONOSCOPY CT CHEST ANGIOGRAM W AND/OR WO IV CONTRAST 07/26/2022 CT CHEST ANGIOGRAM W AND/OR WO IV CONTRAST 07/26/[address] [facility] [address] IM[facility] Home Medications: Prior to Admission medications Medication Sig Start Date End Date Taking? Authorizing Provider albuterol 108 (90 Base) MCG/ACT inhaler Inhale 2 puffs as needed. 4 times daily as needed 01/27/22 Historical Provider, ARIPiprazole (Abilify) 2 MG tablet Take 2 mg by mouth in the morning. 05/29/22 Historical Provider, atorvastatin (Lipitor) 40 MG tablet Take 1 tablet by mouth Nightly. 02/17/22 Historical Provider, bisacodyl (Dulcolax) 10 MG suppository Insert 10 mg into the rectum Daily as needed. 01/27/22 Historical Provider, budesonide (Pulmicort) 0.5 MG/2ML nebulizer solution Take 2 mL (0.5 mg) by nebulization in the morning. Rinse mouth with water after use to reduce aftertaste and incidence of candidiasis. Do not swallow.. Do not start before August 05, 2022. 08/05/22 08/05/23 Kalani Cleary MD cholecalciferol (Vitamin D-3) 25 MCG (1000 UT) capsule Take 1,000 Units by mouth in the morning. 02/17/22 Historical Provider, DULoxetine (Cymbalta) [address] capsule Take 60 mg by mouth in the morning. 01/27/22 Historical Provider, folic acid (Folvite) 1 MG tablet Take 1 mg by mouth in the morning. 02/17/22 Historical Provider, hydrogen peroxide 3 % external solution Apply topically as needed (Trach care). 08/04/22 Kalani Cleary MD levalbuterol (Xopenex) 1.25 MG/3ML nebulizer solution Take 3 mL (1.25 mg) by nebulization in the morning and 3 mL (1.25 mg) at noon and 3 mL (1.25 mg) in the evening. 08/04/22 09/03/22 Kalani Cleary MD LORazepam (Ativan) 0.5 MG tablet Take 1 tablet (0.5 mg) by mouth every 6 hours as needed for anxiety for up to 10 days. 08/04/22 08/14/22 Kalani Cleary MD losartan (Cozaar) 25 MG tablet Take 25 mg by mouth in the morning. 07/17/21 Historical Provider, polyvinyl alcohol (Liquifilm Tears) 1.4 % ophthalmic solution Administer 1 drop into both eyes if needed for dry eyes. 08/04/22 Kalani Cleary MD sennosides (Senokot) 8.6 MG tablet Take 8.6 mg by mouth in the morning. 01/27/22 Historical Provider, tiotropium (Spiriva) [address] 18 mcg into inhaler and inhale. Historical Provider, Current Hospital Medications: Current Facility-Administered Medications: acetaminophen (Tylenol) solution 1,000 mg, 1,000 mg, Oral, q8h PRN, Yuridia Pierre DO [Held by provider] ARIPiprazole (Abilify) tablet 2 mg, 2 mg, Oral, Daily, Yuridia Pierre, DO atorvastatin (Lipitor) tablet 40 mg, 40 mg, Oral, Nightly, Yuridia Pierre, DO bisacodyl (Dulcolax) suppository 10 mg, 10 mg, Rectal, Daily PRN, Yuridia Pierre, DO DULoxetine (Cymbalta) DR capsule 60 mg, 60 mg, Oral, Daily, Yuridia Pierre, DO enoxaparin (Lovenox) syringe 40 mg, 40 mg, SubCUTAneous, Daily, Yuridia Pierre, folic acid (Folvite) tablet 1 mg, 1 mg, Oral, Daily, Yuridia Pierre, DO norepinephrine (Levophed) infusion 16 mg in 0.9 % sodium chloride 250 mL ([id number]) (premix), 1-100 mcg/min, IntraVENous, Continuous, Yuridia Pierre, norepinephrine in sodium chloride 0.9 % (Levophed) 16 mcg/mL infusion - Pyxis ADS Override Pull, , , , norepinephrine in sodium chloride 0.9 % (Levophed) 64 mcg/mL infusion - Pyxis ADS Override Pull, , , , ondansetron ODT (Zofran-ODT) disintegrating tablet 4 mg, 4 mg, Oral, q8h PRN OR ondansetron (Zofran) injection 4 mg, 4 mg, IntraVENous, q6h PRN, Yuridia Ignacio, DO polyethylene glycol (PEG) 3350 (Miralax) packet 17 g, 17 g, Oral, Daily PRN, Yuridia Ignacio, DO propofol (Diprivan) 1000 MG/100ML infusion - Pyxis ADS Override Pull, , , , propofol (Diprivan) infusion, 5-50 mcg/kg/min, IntraVENous, Continuous, Yuridia Ignacio, DO Propylene Glycol-Glycerin (Artificial tears) 1-0.3 % solution 1 drop, 1 drop, Both Eyes, PRN, Yuridia Ignacio, DO sodium chloride 0.9 % infusion, 5-250 mL/hr, IntraVENous, PRN, Yuridia Ignacio, DO Continuous Infusions: norepinephrine, 1-100 mcg/min propofol, 5-50 mcg/kg/min Allergies: Tetanus toxoid Social History: TOBACCO: reports that she quit smoking about 10 years ago. Her smoking use included cigarettes. She does not have any smokeless tobacco history on file. ETOH: reports no history of alcohol use. RECREATIONAL DRUG USE: Social History Substance and Sexual Activity Drug Use No Family History: :Unable to obtain, due to patient level of consciousness, no data on file, no family able to provide information No family history on file. ROS; :Unable to obtain ROS due to patientintubated . Unable to obtain review of systems due to patient sedated Review of Systems Physical Examination: Patient Vitals for the past 8 hrs: BP Temp Temp src Pulse Resp SpO2 Height Weight 09/26/23 1500 112/57 37.2 C (99 F) Bladder 68 14 100 % -- -- 09/26/23 1445 (!) 119/43 37.1 C (98.8 F) -- 67 16 100 % -- -- 09/26/23 1433 (!) 108/46 37.1 C (98.8 F) Bladder 73 16 99 % -- -- 09/26/23 1428 -- -- -- -- -- -- 1.575 m (5' 2 ) 68.2 kg (150 lb 5.7 oz) No intake/output data recorded. General Physical Examination: General: Ill appearing female, arouses to minor stimulation, following commands in all extremities HEENT:Normocephalic, atraumaticl CV: S1+S2, RRR, no MRG. Pulm: Mechanically Ventilated, Clear lung sounds Abdomen: Soft NT/ND. BS + Skin: Mottled Extremities: normal with no edema or cyanosis Orthopedic limitation; Yes Pulses: Intact peripherally Carotid auscultation :No bruits Neurological Examination: Higher Functions: Mental Status Exam: Level of Alertness:Somnolent but arrousable Orientation: intubated, can't talk Memory: intubated, can't talk Fund of Knowledge: intubated, can't talk Language: intubated, can'ttalk Dysarthria Intubated Cranial Nerves: -II Visual acuity: abnormal, limited due to patient unable to perform exam -II Visual smith: poor reliability due to patient level ofconsciousness or structural limitation -III Pupils (~ 2 mm OD, 2 mm OU) equal, round, reactive to light -III-IV- Extraocular Movements: intact -Nystagmus not present -Saccades and pursuits not tracking -V Facial sensation: intact Corneal's Intact bilateral -VII Facial strength: intact -VIII Hearing: intact -IX-X- Gag reflex Intubated -X Palate:intact -XI Shoulder shrug: appaears normal and withdrawing from stimuli in shoulders -XII Tongue movement: Intubated Motor Examination: Tone after evaluation of 4 limbs, the following findings applied: limited testing because of lack of cooperation . all limbs -Bulk: normal -Muscle Stretchafter evaluation of all limbs, and axial musculature the following findings applied: Drift: absent limited reliability, patient not participant -Reflexes: after evaluation of 4 limbs, the following findings applied ; normal all limbs -Plantar responce: Flexor bilaterally Sensory Appears intact to light palpation, Coordination: Arms patient unable to perform test due to sedation, paralysis or limb orthopedic circumstances Legs patient unable to perform testdue to sedation, paralysis or limb orthopedic circumstances Tremors patient unable to perform test due to sedation, paralysis or limb orthopedic circumstances Gait abnormal, unable to walk due to sedation, paralysis or limb orthopedic circumstances Results Labs: Last 24hrs Recent Results (from the past 24 hour(s)) ECG 12 lead Collection Time: 09/26/23 3:30 PM Result Value Ref Range Heart Rate 84 bpm QRSD Interval 84 ms QT Interval 391 ms QTC Interval 463 ms P [place] 72 degrees QRS [place] 60 degrees T Wave [place] 65 degrees [place] Interval 111 ms ASSESSMENT / PLAN / SUGGESTIONS : Syncope with collapse and witnessed seizure activity-no seizure activity since arriving to the ER, given 970 mg Dilantin x 1,Keppra 1g, Versed drip History of seizure disorder on Dilantin-her Dilantin level is 4.6. She was given 970 mg Dilantin x 1 at [facility] Subtherapeutic Dilantin level-will recheck tomorrow AM COPD with chronic hypoxic respiratory failure on 2 L nasal cannula at home-currently mechanically ventilated Recent subdural Hemorrhage secondary to fall-Initial CT head negative, rechecking Hypercapnic respiratory failure-Intubated and pCO2 improving, skin mottled on exam Heart failure with preserved ejection fraction Obstructive sleep apnea Hyperlipidemia-check lipid panel Insomnia-on Ambien 5 mg nightly outpatient per chart review but no current report noted on PDMP History of stroke with chronic dysphagia-stroke in 2021 with hemorrhagic transformation,Had Trach/Peg at that time that has since been removed Hypertension-currently hypotensive and on Levophed Depression and anxiety History of breast cancer History of alcohol abuse-check ethanol level and ethyl gluconuride Normocytic anemia-Trend CBC, may be related to dilantin Thrombocytopenia-Trend CBC, may be related to dilantin -This likely a breakthrough seizure secondary to subtherapeutic Dilantin level and associated hypercapnic respiratory failure. -Order spot EEG for tomorrow AM, No indication for continuous EEG at this time as she is awake and following commands -Will recheck dilantin level tomorrow morning and q24 h until therapeutic, will restart home dilantin 100mg Q8H -Ordered repeat CT head at this time to rule out ICH given syncope and fall, previous history of stroke and SDH Patient seen and discussed with Dr. Flores Associated attestation - Asya Flores MD - 09/26/2023 6:54 PM EDT Neuro Critical Care / stroke Attending Patient transferred from [facility], seizures however last evening , Reported as possible status but she arrived to ICU awake and interactive not actively having seizures This occurred in the setting in which she has long standing history of seizure disorder and is on PNT , presenting to rhodhiss with suboptimals PNT level , Current level 12 On her exam although awake and following commands, she was sleepy and required constant re engagement She had forced eye closure mostly on the right side which would worsen with stimulation . She was somewhat participant of the exam which did not clearly suggested any particular focal are of weakness , mostly global Her tone was also affected by paratonia , Impression - Break through status epilepticus, currently resolved, patient waking up , NO need for video recording - Low levels of PNT, suspect poor compliance, Has now been started on keppra, will see if she tolerates , if she does may be add as second agent Consider future referral to our epilepsy program - H/O COPD and prior respiratory failure , prior admissions here for that reason Patient was intubated at outside facility because of high CO2, likely related to sedation caused by benzos used for sedation in combination of her COPD, we need to assume that her normal CO2 is higher than average when planning the correction - Malnourishment , deconditioning ( by exam ) , prior diagnosis of severe malnutrition , had prior PEG , - Prior history of stroke - ETOH abuse, we need to assume that that is still and issue, ensure thiamine, mVI and folic acid - Anxiety and insomnia - Prior DLP on atorvastatin ( this needs to be use with caution in this setting of malnourishment and decondition - 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 I reviewed the chart including MAR, labs, neuroimaging, other imaging studies and discussed my diagnostic impression and patient's plan of care with my BACILIO/resident, student and the consulting team and patient's family members/surrogate decision makers (in cases where the patient is incapacitated and unable to participate in their own care). [x] Encounter Face to Face [x] Consult [x] Level of care [x] V [x] will continue to follow Personal discussion of test results and plan of care with: Patient treatments and testing options informed consent and plan of care, Admitting Team, ., ., . Thank you Joy Favio for the opportunity to be involved in this patient's care. documented in this encounter [facility] 10-07-2023 Note OCCUPATIONAL THERAPY Attempted OT services however due to recent trach/PEG placement referred POC to OTR for possible re evaluation. Will continue to monitor for continued OT treatment. [facility] 10-05-2023 Note [facility] 10-05-2023 Procedure note Associated Ord er(s): Bronchoscopy Bedside Disposable Post-Procedure Diagnose(s): Acute respiratory failure with hypoxia and hypercapnia (HCC) Bronchoscopy Bedside Disposable Date/Time: 10/05/2023 10:40 PM Performed by: Tolu Soto DO Authorized by: Tolu Soto DO Consent: Consent was not able to be obtained because the procedure was emergent or the patient was unable to give consent and a surrogate decision maker was not available. Timeout: Completed immediately prior to the start of the procedure which included verification of the correct patient, correct site and agreement on the procedure to be done. Anesthetic: Local anesthetic used: not applicable Sedation: Sedation: no additional sedation needed Indications: Indication: bronchial obstruction Procedure Details: Type: diagnostic Completed via: tracheostomy Lung examined: Both Abnormalities: other (see comments) Abnormalities comments: irritated friable mucosa with some Post-procedure: Specimen sent to lab: no Secretion description: bloody Estimated blood loss: < 10 mL Specify Complication(s): bleeding Assistants & Supervision: I personally performed the procedure documented as signed by this procedure note Burglar Alarm Operator(s): N/A Lamp Decorator: Dr. Decker The attending physician was physically present while the proceduralist performed starr/critical components of the procedure. Attending: Dr. Decker General Comments: Pt. Desaturating on the vent with high pressure alarms, not getting breaths. Able to pass the suction cannula. Airway with red inflamed friable mucosa with some oozing. Both airways examined, no obvious plug or obstruction. Associated attestation - Seth Decker DO - 10/06/2023 12:12 AM EDT I was present at bedside for entire procedure. Bronchoscopy was done for therapeutic indications. Patient tolerated procedure well. Repeat chest x-ray did not reveal evidence of a pneumothorax. Associated Order(s): Intubation Post-Procedure Diagnose(s): Acute respiratory failure with hypoxia and hypercapnia (HCC) Intubation Date/Time: 10/03/2023 10:32 AM Performed by: AUNG Navarrete CNP Authorized by: AUNG Navarrete CNP Consent: The indications, risks, benefits, alternatives to the procedure were explained to the patient/surrogate decision maker and their questions answered. Consent was obtained to proceed with the procedure. Timeout: Completed immediately prior to the start of the procedure which included verification of the correct patient, correct site and agreement on the procedure to be done. Anesthetic: Local anesthetic used: not applicable Indications: Indications: respiratory failure Preparation: Assessment: No concerns Mallampati score: I Neck mobility: Normal Pharmacologic strategy: rapid sequence Induction agents: Etomidate Paralytics: Rocuronium Procedure details: Preoxygenation: CPAP (NIV) CPR in progress: no Total number of attempts: 1 Successful intubation details: Intubation method: Oral Intubation technique: video-assisted Laryngoscope blade: Hyperangulated Bougie used: no Cormack-Lehane view: I Tube size (mm): 7.0 Tube type: Cuffed Placement assessment: ETT at lip (cm): 23 Tube secured with: ETT munguia and adhesive tape Breath sounds: Equal and diminished Placement verification: CXR verification Follow-up chest x-ray: Completed Post-procedure: Estimated Blood Loss: None Specify complication(s): No apparent complications Assistants & Supervision: I personally performed the procedure documented as signed by this procedure note Burglar Alarm Operator(s): Lauryn Mcdonald CNP No supervision required Associated Order(s): Intubation Post-Procedure Diagnose(s): Acute respiratory failure with hypoxia and hypercapnia (HCC) Intubation Date/Time: 09/28/2023 12:17 PM Performed by: AUNG Navarrete CNP Authorized by: AUNG Navarrete CNP Consent: Consent was not able to be obtained because the procedure was emergent or the patient was unable to give consent and a surrogate decision maker was not available. Timeout: Completed immediately prior to the start of the procedure which included verification of the correct patient, correct site and agreement on the procedure to be done. Anesthetic: Local anesthetic used: not applicable Indications: Indications: respiratory distress and respiratory failure Preparation: Assessment: No concerns Mallampati score: Emergent not performed Neck mobility: Normal Pharmacologic strategy: rapid sequence Induction agents: Etomidate Paralytics: Rocuronium Procedure details: Preoxygenation: Bag valve mask CPR in progress: no Total number of attempts: 1 Successful intubation details: Intubation method: Oral Intubation technique: video-assisted Laryngoscope blade: Hyperangulated Bougie used: no Cormack-Lehane view: I Tube size (mm): 7.5 Tube type: Cuffed Placement assessment: ETT at lip (cm): 24 Tube secured with: ETT munguia Breath sounds: Diminished (wheezing, coarse) Placement verification: CXR verification Follow-up chest x-ray: Ordered Post-procedure: Estimated Blood Loss: None Specify complication(s): No apparent complications Assistants & Supervision: I personally performed the procedure documented as signed by this procedure note Burglar Alarm Operator(s): N/A No supervision required The attending physician was physically present while the proceduralist performed starr/critical components of the procedure. Attending: Dr. Rayray Gaitan Associated attestation - Severo Hurst DO - 09/28/2023 12:30 PM EDT I have reviewed and agree with the resident/fellow/BACILIO note I was physically present for starr elements of the procedure Complications during procedure: None Associated Order(s): EEG Images from the original note were not included. [facility] [address] [place] [address] [id number] ROUTINE EEG REPORT Patient Name: Luiza May : 1955 Date of Study: 09/26/2023 Duration Recorded: 30 minutes EEG#: [id number] PAVING PLANT OPERATOR: Isabel Chow. PROVIDER REQUESTING STUDY: Charlene Henderson MD REASON FOR EXAM: Evaluate for seizures DIAGNOSIS TAG: Transient Neurologic Symptoms (TNS) HISTORY: Luiza May is a 67 y.o. female with history of OPD, TIO, ch respiratory failure on home oxygen and home BIPAP, seizure disorder on dilantin. She is a direct transfer from [facility] due to seizure-like activity witnessed by her . On review of [facility] records, her was helping her go to the bathroom when her legs gave out and she fell to the floor with rhythmic shaking . She has known seizure history disorder was on Dilantin 100 mg every 8 hours. Dilantin level was measured at [facility] at 4.6. Per chart review she has had no breakthrough seizures in the last 15 months but has history of non-complinace. She had recent hospitalization 08/2023 due to fall leading to SDH, non-operatively managed. She had been on DAPT prior to 08/2023 subdural hemorrhage. On arrival to the hospital she had an ABG which showed pH of 7.[address] head at 0036 showed no acute intracranial abnormality. She was placed on AutoPap without improvement of pCO2 and eventually intubated for respiratory support and airway protection. She was given 970mg dilantin x1, Keppra 1g, and started on propofol, versed and fentanyl following intubation. Her daughter's number is listed in the chart and was called for further clarification of history however she did not order picker/assembler the phone. MEDICATIONS: Current Facility-Administered Medications Medication Dose Route Frequency Provider Last Rate Last Admin acetaminophen (Tylenol) solution 1,000 mg 1,000 mg Oral q8h PRN Yuridia Pierre DO [Held by provider] ARIPiprazole (Abilify) tablet 2 mg 2 mg Oral Daily Yuridia Ignacio, DO atorvastatin (Lipitor) tablet 40 mg 40 mg Oral Nightly Yuridia Ignacio, DO bisacodyl (Dulcolax) suppository 10 mg 10 mg Rectal Daily PRN Yuridia Ignacio, DO budesonide (Pulmicort) 0.5 MG/2ML nebulizer solution 0.5 mg 0.5 mg Nebulization Daily Marisela Fernandez MD DULoxetine (Cymbalta) DR capsule 60 mg 60 mg Oral Daily Yuridia Ignacio, DO enoxaparin (Lovenox) syringe 40 mg 40 mg SubCUTAneous Daily Yuridia Ignacio, DO folic acid (Folvite) tablet 1 mg 1 mg Oral Daily Yuridia Ignacio, DO 1 mg at 09/26/23 1708 ipratropium-albuterol (Duo-Neb) 0.5-2.5 mg/3 mL nebulizer solution 3 mL 3 mL Nebulization TID Marisela Fernandez MD methylPREDNISolone sod suc (PF) (SOLU-Medrol) 40 MG injection 40 mg 40 mg IntraVENous q24h Marisela Fernandez MD 40 mg at 09/26/23 1736 norepinephrine (Levophed) infusion 16 mg in 0.9 % sodium chloride 250 mL (Wsf-Vtpguh-Swuni) (premix) 1-100 mcg/min IntraVENous Continuous Yuridia Ignacio, DO 4.69 mL/hr at 09/26/23 1800 5 mcg/min at 09/26/23 1800 norepinephrine in sodium chloride 0.9 % (Levophed) 16 mcg/mL infusion - Pyxis ADS Override Pull ondansetron ODT (Zofran-ODT) disintegrating tablet 4 mg 4 mg Oral q8h PRN Yuridia Ignacio, DO Or ondansetron (Zofran) injection 4 mg 4 mg IntraVENous q6h PRN Yuridia Ignacio, DO phenytoin (Dilantin) suspension 100 mg 100 mg Oral TID [place] Jose, polyethylene glycol (PEG) 3350 (Miralax) packet 17 g 17 g Oral Daily PRN Yuridia Ignacio, DO propofol (Diprivan) infusion 5-50 mcg/kg/min IntraVENous Continuous Yuridia Ignacio, DO 8.18 mL/hr at 09/26/23 1642 20 mcg/kg/min at 09/26/23 1642 Propylene Glycol-Glycerin (Artificial tears) 1-0.3 % solution 1 drop 1 drop Both Eyes PRN Yuridia Pierre DO sodium chloride 0.9 % infusion 5-250 mL/hr IntraVENous PRN Yuridia Pierre DO TECHNICAL ASPECTS: This routine scalp EEG study with video was carried out at [facility]. Scalp electrodes were positioned in person by an electroencephalographic technologist, following patient education, according to the 10-20 International system of electrode placement and maintained for integrity and quality of the recording. EEG data with video was recorded continuously and digitally stored. The electroencephalographic technologist reviewed all automated detections and manual events and prepared the data for archiving and provider review. Referential and bipolar montages were used for review. TECHNOLOGIST NOTES: No skull or scalp defects were observed. BACKGROUND ACTIVITY: Posterior background activity: No observable posterior dominant rhythm was seen. Beta range: Diffuse beta range activity (15-25 Hz, 10-20 uV) was seen. Sleep: No sleep architecture was seen. Normal Variants: No normal variants were identified. SLOWING: Continuous (greater than 90% of the recording) RIGHT hemisphere predominant generalized delta-theta range (0.5-5.5 Hz, 20-150 uV) slow wave activity was seen. Intermixed RIGHT hemispheric alpha-beta range (10.5-15 Hz, 10-50 uV) activity was observed. This activity was unresponsive to stimulation. Time Elapsed: 00:18:53 INTERICTAL EPILEPTIFORM ACTIVITY: No epileptiform activity was seen. ICTAL ACTIVITY: No ictal activity was seen. NON-EPILEPTIC EVENTS: None. ACTIVATION PROCEDURES: Photic stimulation was not performed. Hyperventilation was not performed. IMPRESSION AND ACTIONS TAKEN: This routine EEG with video is abnormal. Continuous RIGHT hemisphere predominant generalized slowing is seen with intermixed fast frequencies. This activity is not responsive to stimulation. No epileptiform activity nor seizures are observed. No sleep architecture is captured. The findings are consistent with with RIGHT hemisphere predominant dysfunction supportive of a breach rhythm (as seen through a skull defect) superimposed on a [id number] global encephalopathy. Escobar Kumar MD, PHD Epilepsy Attending documented in this encounter [facility] 10-05-2023 Note Referral placed to [facility] via [facility] per TCC request. Await review and response regarding ability to accept. TCC notified. [facility] 10-05-2023 Hospital Discharge instructions Analy Ramirez RN - 10/05/2023 1:37 PM EDT Images from the original note were not included. Continuity of Care Form Patient Name: Luiza May : 1955 Admit date: 09/26/2023 Discharge date: 10/12/2023 Code Status Order: Full Code Advance Directives: N Admitting Physician: Charlene Henderson MD PCP: Joy Stahl Discharging Nurse: Benjamin Discharging Hospital Unit/Room#: W7-734/[id number] A Discharging Unit Emergency Contact: Extended Emergency Contact Information Primary Emergency Contact: AMEENA MAY Mobile Relation: Daughter Secondary Emergency Contact: Gene Mills Mobile Relation: Son Preferred language: [place] Police Dispatcher needed? No Past Surgical History: Past Surgical History: Procedure Laterality Date APPENDECTOMY CHOLECYSTECTOMY COLONOSCOPY COLONOSCOPY CT CHEST ANGIOGRAM W AND/OR WO IV CONTRAST 07/26/2022 CT CHEST ANGIOGRAM W AND/OR WO IV CONTRAST 07/26/[address] [facility] [address] IMAGING Immunization History: Immunization History Administered Date(s) Administered Pfizer SARS-CoV-2 Vaccination 09/28/2020, 10/20/2020, 06/18/2021 Active Problems: Medical Problems Problem List * (Principal) Seizure (HCC) COPD exacerbation (HCC) Severe malnutrition (CMS/HCC) (HCC) (Chronic) Alcohol abuse Cerebrovascular accident (CVA) due to embolism of cerebral artery (HCC) NSTEMI (non-ST elevated myocardial infarction) (HCC) History of hematemesis Hemorrhage of gastrointestinal tract Overview Signed 04/16/2022 1:36 PM by Interface, Incoming Problems- [facility] Conversion Updating Deprecated Diagnoses Acute deep vein thrombosis (DVT) of distal vein of right lower extremity (HCC) Encephalopathy Posterior reversible encephalopathy syndrome (PRES) Acute respiratory failure with hypoxia and hypercapnia (HCC) Isolation/Infection: No active isolations No active infections Nurse Assessment: Last Vital Signs: BP (!) 98/47 (BP Location: Right arm, Patient Position: Lying) Pulse 93 Temp 36.7 C (98 F) (Temporal) Resp 16 Ht 1.575 m (5' 2.01 ) Wt 71 kg (156 lb 8.4 oz) SpO2 93% PF 27 L/min BMI 28.62 kg/m Last documented pain score (0-10 scale): Last Weight: Wt Readings from Last 1 Encounters: 10/10/23 71 kg (156 lb 8.4 oz) Mental Status: POONAM Patient Mental Status: oriented and alert IV Access: POONAM IV Access: None Nursing Mobility/ADLs: Walking Minimal assistance Transfer Minimal assistance Bathing Minimal assistance Dressing Minimal assistance Toileting Minimal assistance Feeding Independent Mink Rancher Minimal assistance Med Delivery yes Wound Care Documentation and Therapy: Wound/Incision 09/26/23 Traumatic Lip Left;Upper (Active) Wound Image 09/26/23 1433 Site Assessment Celada 10/05/23 1200 Wound Length (cm) 0.8 cm 09/26/23 1433 Wound Width (cm) 0.4 cm 09/26/23 1433 Wound Surface Area (cm^2) 0.32 cm^2 09/26/23 1433 Wound Depth (cm) 0 cm 09/26/23 1433 Wound Volume (cm^3) 0 cm^3 09/26/23 1433 Drainage Description Unable to assess 10/02/23 0400 Odor None 10/05/23 0400 Drainage Amount None 10/05/23 0400 Treatments Site care 09/29/23 2000 Primary Dressing Open to air 10/05/23 1200 Number of days: 9 Wound/Incision 10/03/23 Other (comment) Perineum (Active) Wound Image 10/03/23 2200 Site Assessment Blanchable erythema 10/05/23 1200 Maame-Wound Assessment Blanchable erythema 10/04/23 1200 Drainage Description Serosanguineous 10/05/23 1200 Odor None 10/05/23 1200 Drainage Amount Scant 10/05/23 1200 Treatments Cleansed 10/05/23 0400 Primary Dressing Open to air 10/05/23 1200 Periwound Dressing Moisturizing lotion;Barrier Cream 10/03/23 2200 Number of days: 2 Elimination: Continence: Bowel: yes Bladder: yes Urinary Catheter: None Colostomy/Ileostomy/Ileal Conduit: None Date of Last BM: 10/11/2023 Intake/Output Summary (Last 24 hours) at 10/12/2023 1537 Last data filed at 10/12/2023 0626 Gross per 24 hour Intake 1384 ml Output -- Net 1384 ml I/O last 3 completed shifts: In: 1784 (25.1 mL/kg) [NG/GT:1784] Out: - (0 mL/kg) Weight: 71 kg Safety Concerns: history of falls (last 30 days), at risk for falls, history of seizures, and aspiration risk Impairments/Disabilities: hearing Nutrition Therapy: Current Nutrition Therapy: Tube feedings: low calorie/high protein Routes of Feeding: gastrostomy tube Liquids: no liquids Daily Fluid Restriction: no Last Modified Barium Swallow with Video (Video Swallowing Test): not done Treatments at the Time of Hospital Discharge: Respiratory Treatments: Pulmicort Daily, Duo-nebs Q4 Oxygen Therapy: Vent 30% fiO2 Ventilator: Ventilator settings: Vt (Set, mL): 300 mL Resp Rate (Set): 16 FiO2 (%): 30 % PEEP/CPAP (cm H2O): 8 cm H20 Rehab Therapies: physical therapy, occupational therapy, speech therapy, and nursing Weight Bearing Status/Restrictions: weight bearing as tolerated Other Medical Equipment (for information only, NOT a DME order): commode Other Treatments: N/A Patient's personal belongings (please select all that are sent with patient): glasses and hearing aides bilateral RN SIGNATURE: MANAGEMENT/SOCIAL WORK SECTION Inpatient Status Date: 10/05/2023 Readmission Risk Assessment Score: @[email or web address]@ Discharging to Facility/ Agency [facility] [place] [address] Dialysis Facility (if applicable) Name: Address: Dialysis Schedule: Phone: Fax: Photonics Engineering Technologist/Pants Presser Automatic signature: ICIAN SECTION Prognosis: good Condition at Discharge: stable Rehab Potential (if transferring to Rehab): good Recommended Labs or Other Treatments After Discharge: cmp, cbd Physician Certification: I certify the above information and transfer of Luiza May is necessary for the continuing treatment of the diagnosis listed and that she requires LTAC for less than 30 days. Update Admission H&P: No change in H&P PHYSICIAN SIGNATURE: documented in this encounter [facility] 10-04-2023 Note [facility] 10-04-2023 Note [facility] 10-03-2023 Note [facility] 09-30-2023 Note PHYSICAL THERAPY [facility] Name/MRN: Luiza May ([id number]) Date: 09/30/2023 Attempted PT evaluation, pt was non arousable despite many techniques to elicit participation. Continue as screens and evaluate as appropriate. Lisa Deluna [facility] 09-29-2023 Miscellaneous Notes Patient has been identified by name and date of : Pharmacy phones for refill(s): Requested Prescriptions Pending Prescriptions Disp Refills zolpidem (AMBIEN) 10 mg 30 tablet 0 Sig: Take 1 tablet by mouth at bedtime as needed (insomnia) for up to 90 days. Date of last office visit in primary care: 09/23/2023 Date of next office visit in primary care: 10/08/2023 Please advise. Thank you. Xiomara Abad LPN. documented in this encounter [facility] 09-28-2023 Note Speech-Flower [employer] ology Received orders for a speech evaluation and treat. Patient is currently intubated and unable to participate. Completed orders and await re-consult 12- 24 hours post-extubation. Vianca Sharif MA CCC-BELT REPAIRER [facility] 09-28-2023 Note [facility] 09-27-2023 Miscellaneous Notes Patient has been identified by name and date of : Yes, Provider Miriam Pharmacy phones for refill(s): Requested Prescriptions Pending Prescriptions Disp Refills phenytoin (DILANTIN) 125 mg/5 mL susp 237 mL 4 Sig: Take 4 mL by mouth every 8 hours. Date of last office visit in primary care: 09/23/23 Date of next office visit in primary care: 10/08/23 Please advise. Thank you. Bhavana Garza LPN. documented in this encounter [facility] 09-26-2023 Note [facility] 09-26-2023 Note [facility] 09-26-2023 History and physical note Images from the original note were not included. Internal Medicine: MICU Initial History and Physical Name: Luiza May : 1955(67 y.o.) Date: 09/26/23 Attending: Dr. Henderson Subjective: Chief Complaint: Altered Mental Status HPI: 67yo F with PMHx of COPD with Chronic Hypoxic respiratory failure on 2L of Oxygen and BiPAP at night (poor compliance) s/p tracheostomy (2022), HFpEF with Takotsubo Cardiomyopathy, CVA with chronic dysphagia and aspiration on altered diet with prior PEG tube (2022), hemorrhagic CVA s/p Surgical intervention at [facility] (2021), GERD, h/o VTE, Hypertension, depression, anxiety, h/o Breast Cancer, former EtOH abuse, Seizure disorder on Dilantin was sent to [facility] from [facility] for management of Encephalopathy secondary to Acute on chronic Hypoxic Hypercapnic respiratory failure and what seem to be a break through seizure. Patient was at home walking in to the bathroom when she reportedly experienced rhythmical shaking and tonic-clonic posturing that lasted less than 10min, witnessed by her fiance. They called EMS and was eventually taken to [facility] hospital. She remained with altered mentation after the incidence.Her mental status didn't improve over the night and her ABG noted significant Acidemia with Hypercarbia, PH 7.14 and PCO2 137. Thus patient was intubated for respiratory support and protection of airway. She was referred to [facility] for further management. Past Medical History: Diagnosis Date Asthma CAD (coronary artery disease) Cerebral artery occlusion with cerebral infarction (CMS/HCC) (HCC) COPD (chronic obstructive pulmonary disease) (HCC) Hypertension Past Surgical History: Procedure Laterality Date APPENDECTOMY CHOLECYSTECTOMY COLONOSCOPY COLONOSCOPY CT CHEST ANGIOGRAM W AND/OR WO IV CONTRAST 07/26/2022 CT CHEST ANGIOGRAM W AND/OR WO IV CONTRAST 07/26/[address] [facility] [address] IMAGING No family history on file. Social History Socioeconomic History Marital status: Spouse name: Not on file Number of children: Not on file Years of education: Not on file Highest education level: Not on file Occupational History Not on file Tobacco Use Smoking status: Former Types: Cigarettes Quit date: 07/13/2013 Years since quittin.2 Smokeless tobacco: Not on file Vaping Use Vaping Use: Never used Substance and Sexual Activity Alcohol use: No Drug use: No Sexual activity: Not on file Other Topics Concern Not on file Social History Narrative Not on file Social Determinants of Health Financial Resource Strain: Not on file Food Insecurity: No Food Insecurity (07/26/2022) Hunger Vital Sign Worried About Running Out of Food in the Last Year: Never true Ran Out of Food in the Last Year: Never true Transportation Needs: No Transportation Needs (07/26/2022) PRAPARE - Transportation Lack of Transportation (Medical): No Lack of Transportation (Non-Medical): No Physical Activity: Unknown (07/26/2022) Exercise Vital Sign Days of Exercise per Week: Not on file Minutes of Exercise per Session: 20 min Stress: Stress Concern Present (07/26/2022) [employer] - Occupational Stress Questionnaire Feeling of Stress : Very much Social Connections: Moderately Isolated (07/26/2022) Social Connection and Isolation Panel [NHANES] Frequency of Communication with Friends and Family: More than three times a week Frequency of Social Gatherings with Friends and Family: More than three times a week Attends Zoroastrian Services: Never Active Member of Clubs or Organizations: No Attends Club or Organization Meetings: Never Marital Status: Intimate Partner Violence: Not At Risk (07/26/2022) Humiliation, Afraid, Rape, and Kick questionnaire Fear of Current or Ex-Partner: No Emotionally Abused: No Physically Abused: No Sexually Abused: No Housing Stability: Low Risk (07/26/2022) Housing Stability Vital Sign Unable to Pay for Housing in the Last Year: No Number of Places Lived in the Last Year: 1 Unstable Housing in the Last Year: No Allergies Allergen Reactions Tetanus Toxoid Swelling Prior to Admission medications Medication Sig Start Date End Date Taking? Authorizing Provider albuterol 108 (90 Base) MCG/ACT inhaler Inhale 2 puffs as needed. 4 times daily as needed 01/27/22 Historical Provider, ARIPiprazole (Abilify) 2 MG tablet Take 2 mg by mouth in the morning. 05/29/22 Historical Provider, atorvastatin (Lipitor) 40 MG tablet Take 1 tablet by mouth Nightly. 02/17/22 Historical Provider, bisacodyl (Dulcolax) 10 MG suppository Insert 10 mg into the rectum Daily as needed. 01/27/22 Historical Provider, budesonide (Pulmicort) 0.5 MG/2ML nebulizer solution Take 2 mL (0.5 mg) by nebulization in the morning. Rinse mouth with water after use to reduce aftertaste and incidence of candidiasis. Do not swallow.. Do not start before August 05, 2022. 08/05/22 08/05/23 Kalani Cleary MD cholecalciferol (Vitamin D-3) 25 MCG (1000 UT) capsule Take 1,000 Units by mouth in the morning. 02/17/22 Historical Provider, DULoxetine (Cymbalta) [address] capsule Take 60 mg by mouth in the morning. 01/27/22 Historical Provider, folic acid (Folvite) 1 MG tablet Take 1 mg by mouth in the morning. 02/17/22 Historical Provider, hydrogen peroxide 3 % external solution Apply topically as needed (Trach care). 08/04/22 Kalani Cleary MD levalbuterol (Xopenex) 1.25 MG/3ML nebulizer solution Take 3 mL (1.25 mg) by nebulization in the morning and 3 mL (1.25 mg) at noon and 3 mL (1.25 mg) in the evening. 08/04/22 09/03/22 Kalani Cleary MD LORazepam (Ativan) 0.5 MG tablet Take 1 tablet (0.5 mg) by mouth every 6 hours as needed for anxiety for up to 10 days. 08/04/22 08/14/22 Kalani Cleary MD losartan (Cozaar) 25 MG tablet Take 25 mg by mouth in the morning. 07/17/21 Historical Provider, polyvinyl alcohol (Liquifilm Tears) 1.4 % ophthalmic solution Administer 1 drop into both eyes if needed for dry eyes. 08/04/22 Kalani Cleary MD sennosides (Senokot) 8.6 MG tablet Take 8.6 mg by mouth in the morning. 01/27/22 Historical Provider, tiotropium (Spiriva) [address] 18 mcg into inhaler and inhale. Historical Provider, Objective: Oxygen Delivery: VITALS: BP 112/57 Pulse 68 Temp 37.2 C (99 F) (Bladder) Resp 14 Ht 5' 2 (1.575 m) Wt 150 lb 5.7 oz (68.2 kg) SpO2 100% BMI 27.50 kg/m CURRENT PULSE OXIMETRY: SpO2: 100 % Review of Systems Skin: Negative. All other systems reviewed and are negative. Constitutional: General Appearance []WDWN [x]Obese []Cachectic []Thin [x]Ill Eyes: Inspection of Pupils/Irises Pupils round and react: [x]Yes []No Sclera: []Icteric [x]Non-Icteric Inspection of Conjunctiva/Lids Conjunctiva: []Injected [x]Non-Injected Lids: [x]Intact []Lesion Present ENT/Mouth: External Inspection of ears/nose [x] Normal [] Scar/Lesion/Mass Inspection of teeth/lips/gums Dentition: [][place] Teeth []Dentures Lips/Gums: []Intact []Lesion Present Mucosa: []Celada [x]Moist []Dry Neck: External Appearance Overall Appearance: [x]Normal []Lesion/Mass/Crepitus Present Trachea midline: []Yes []No Thyroid [x]Normal []Enlarged []Tender []Mass []Absent Respiratory: Respiratory effort []Labored []Non-Labored [x] Mechanically-Ventilated Auscultation [x]Clear []Crackles []Wheezes []Rhonchi Cardiovascular: Auscultation Rate: [x]Regular []Irregular []Tachycardia []Bradycardia Rhythm: [x]Regular []Irregular Murmur: []Present [x]Absent Extremities Peripheral Edema: []Present [x]Absent Varicosities: []Present [x]Absent Gastrointestinal: Abdomen Palpation: [x]Soft []Firm []Tender []Non-Tender []Distended [x]Non-distended Mass: []Present []Absent Bowel Sounds: [x]Present []Absent Hernia: []Present []Absent Liver/Spleen: []Hepatosplenomegaly []Organomegaly Absent Musculoskeletal: Inspection of Digits and Nails Cyanosis: []Present [x]Absent Clubbing: []Present [x]Absent Ischemia: []Present []Absent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 required I would like to help you schedule a hospital follow-up virtual or telephone visit with your PCP. This is a great way for you to connect with your provider to ensure you have safely transitioned home. If you are agreeable, I will send your request to a meter repair shop supervisor who will contact and assist you with that appointment. This will give you an opportunity to ask any questions or address any concerns you may have with your PCP. Inform the patient that if they have any questions or concerns prior to that appointment, to call their PCP's office right away. ACTION TAKEN: Patient desires an appointment - Routed to [facility] [[id number]] for scheduling telehealth visit (telephonic, virtual visit, or Facetime) within 7 days of discharge with PCP care team. Indicate hospital follow-up appointment needed within 7 days in Provider/FYI box. End Outreach. Your doctor would like us to remind you of the recommendations regarding the coronavirus (Covid19) outbreak: Avoid public places as much as possible. Avoid close contact (within 6 feet) with others you don?t live with, especially if they are sick. Stay home if you are sick. Wash your hands re (more content not included)... [facility] 08-11-2023 Note HNO ID: [id number] Author: SETH CHAWLA RPh Service: ? Author Type: Pharmacist Type: Progress Notes Filed: 08/11/2023 11:59 Note Text: TRANSITION CARE MANAGEMENT (TCM) PHARMACY CONTACT Provider Action/FYI: TCM Medication Reconciliation partially completed for patient. See medication list table below for details. Medications discussed per patient preference outlined in bold in table below. Initial contact with patient post discharge, spoke to patient, and verified that any applicable caregiver is active in patient's medical care. Patient identified by name and . Summary: -Pt discharged from [facility] on 08/10/23. -Medication review done: Partial medication review completed - per patient preference Patient Concerns: Patient states she is aware of the changes to her medication list. Declined full medication review. Patient advised to review discharge medication list and call back with questions or concerns. History of Present Illness: The following content has been copied and pasted from patient's discharge summary. If discharge summary unavailable, After Visit Summary or last pertinent inpatient notes are copied and pasted. [facility] Neuro[facility] consulted Non-op management Continue Q4hr neuro checks Repeat CTH stable on 08/06/2023 No Keppra SQ Heparin for DVT ppx Follow-up with neurosurgery in [address] brain Scalp laceration S/P staple repair Staple removal 10-14 days post-repair Local wound care Acute on chronic hypoxia; COPD/emphysema Respiratory status remains stable on 4L O2 via NC at 97% On home supplemental O2 at 2L Continue pulmicort, duoneb Wean down to home 2L if able Encourage IS, PEP Current diet order: DIET REGULAR Pain regimen: PRN Tylenol Bowel regimen: Senna-S Labs: As above PPX: DVT: SQ Heparin; SCDs; Mobilize Ulcer: Protonix Vit D level if > 65 yo: Pending Medication Reconciliation: Legend: Stopped, New, Changed, Added to list Medication List Medication Directions Comments Action/Plan acetaminophen (TYLENOL) 325 mg tablet 2 tablets by ORAL/FEEDING TUBE route every 4 hours as needed for pain. PRN albuterol (PROVENTIL) 2.5 mg /3 mL (0.083 %) nebulizer solution Use 2.5 mg via nebulizer as directed. albuterol HFA (PROAIR HFA) 90 mcg/actuation inhaler Inhale 2 Puffs as instructed every 6 hours as needed. ARIPiprazole (ABILIFY) 2 mg tablet Take 1 tablet by mouth once daily. Discontinued: 08/10/2023 3:04 PM Aware atorvastatin (LIPITOR) 40 mg tablet Take 1 tablet by mouth once daily. Cholecalciferol, Vitamin D3, 25 mcg (1,000 unit) cap Take 1 capsule by mouth once daily. DULoxetine (CYMBALTA) 30 mg capsule Take 1 capsule by mouth once daily. escitalopram oxalate (LEXAPRO) 20 mg tablet Take 1 tablet by mouth once daily. folic acid 1 mg tablet Take 1 tablet by mouth once daily. furosemide (LASIX) 20 mg tablet Take 1 tablet by mouth two times a day. Last 3 Encounter BP Readings: Date: BP: 08/05/2023 151/97 07/14/2023 120/68 05/06/2023 122/68 Potassium Date Value Ref Range Status 08/10/2023 3.6 (L) 3.7 - 5.1 mmol/L Final hydrOXYzine pamoate (VISTARIL) 25 mg capsule Take 1 capsule by mouth three times a day as needed for anxiety. ipratropium-albuterol (DUONEB) 0.5 mg-3 mg(2.5 mg base)/3 mL nebu INHALE 1 vial via NEBULIZER EVERY 6 HOURS while awake Discontinued: 08/10/2023 3:04 PM Aware metoprolol succinate ER (TOPROL XL) 25 mg 24 hr tablet Take 1 tablet by mouth once daily. Last 3 Encounter BP Readings: Date: BP: 08/05/2023 151/97 07/14/2023 120/68 05/06/2023 122/[address] (PROTONIX) 40 mg tablet Take 1 tablet by mouth daily before breakfast. Take on empty stomach, 1/2 hr before meal. phenytoin (DILANTIN) 125 mg/5 mL susp Take 4 mL by mouth every 8 hours. potassium chloride ER (KLOR-CON) 20 mEq tablet Take 1 tablet by mouth two times a day. Potassium Date Value Ref Range Status 08/10/2023 3.6 (L) 3.7 - 5.1 mmol/L Final rOPINIRole (REQUIP) 1 mg tablet Take 1 tablet by mouth daily at bedtime. zolpidem (AMBIEN) 10 mg Take 1 tablet by mouth at bedtime as needed (insomnia) for up to 90 days. Preferred pharmacy: [facility] [place] [place] [address] [id number] - [phone] [facility] [address] [facility] [address] Estimated Creatinine Clearance: 78.3 mL/min (based on SCr of 0.63 mg/dL). Estimated Glomerular Filtration Rate (mL/min/1.73m?) Date Value 08/10/2023 97 eGFR- (no units) Date Value 11/16/2020 >60 Additional follow up: Next 5 Appointments Date and Time Provider Department Dept Phone 08/23/2023 10:[address] [facility] [employer] [facility] [employer] [phone] 08/23/2023 11:[address] [facility] [phone] Interventions Made: None Pharmacist Recommendations Made None Care Coordination: None at this time Time spent on patient: 15-30 (more content not included)... [facility] 08-11-2023 Note Patient Outreach (AM [facility]CM[facility]) -------- LUIZA MAY ([id number]) 1955 F Date Time Provider Department 08/11/23 JORDAN ROWE AM[facility]SPIKE[facility] During your visit today, we recorded the following information about you: Jordan Rowe RN 08/11/2023 10:11 AM Signed TCM Home Visit Referral Source of Stratification: [facility] Admission Status: Discharged Readmission Risk Score: 35 SARA Score: 7 Patient meets program referral criteria: Yes Program referral criteria met: - Readmission risk score greater than or equal to 35-39% Patient qualifies for High Risk TCM Home Visit. Discussed High Risk TCM Home Visit Program with patient: Patient - Does not accept due to:Patient Declined Jordan Rowe RN August 11, 2023 9:59 AM TRANSITIONAL CARE MANAGEMENT (TCM) COMMUNITY MONITORING PROGRAM Provider Action/FYI: Navigation Team Please assist with scheduling [facility] Hospital Discharge PCP Follow up. TCM Eligible until 08/24/23. Thank you Spoke with patient and she stated she is feeling better. Denies new or worsening symptoms. Denies headaches or blurry vision. [place] WNL. Denies drainage or fever. Patient gets arturo removed on 08/19. On 2L home O2. Denies SOB. Reviewed discharge instructions. Patient aware of activity and limitations. Reviewed stopped and new medications. Patient declined a full medication review. Educated patient on not taking NSAIDS at this time. Patient expressed understanding. Reviewed HRTIC program, but patient declined. Patient needs PCP follow up appointment. Will route to Navigation for scheduling. [facility] and CT scheduled for 08/23. No further questions or concerns at this time. Patient will reach out to Dr. Franco as needed. SUMMARY: Discharge Network Status: In-Network Discharge Pt discharged from [facility] on 08/10/23. Admitted for: Subdural hematoma (HCC) Contact made with patient: Yes Hi my name is Jordan Rowe RN and I am calling from the [facility] on behalf of your PCP, Maryam Franco MD I understand you were recently in the hospital so I am calling to check in with you to ensure you are feeling well now that you're home. May I ask you a few questions related to your hospital stay and well-being? Yes Contact with patient post discharge, spoke to patient. Patient identified by name and . Do you feel your health is BETTER, WORSE, or the SAME since leaving the hospital? Better ACTION TAKEN: Patient indicated symptoms are better or same, no action required. Continue outreach. MEDICATIONS: Many patients have questions or concerns about their medications once they are home. Do you have any questions about taking your medications or which medication you should be on? No Do you need any medication refills at this time, including any of the medications you might take only when needed? No ACTION TAKEN: No action required For RNs or Pharmacy completing outreach ONLY, was a medication review completed? Partial/ Med adjustments only, per patient preference. See [facility] pharmacy outreach. Patient declined a full medication review. SOCIAL: We would like to make sure you have what you need so that your basics needs are met - including your personal safety, food, housing and medications. Would you like to speak with a social work steam flattener to help give you support for any of these needs? No It can be normal to feel anxious or down during a time like this. Would you like to talk to a mental health professional about how you have been feeling? No ACTION TAKEN: No action taken DISCHARGE INTRUCTIONS: Your discharge instructions / After Visit Summary (AVS) are important in guiding you through the recovery process. Do you have any questions related to your discharge instructions? No Do you have all the necessary equipment and supplies at home? Yes ACTION TAKEN: No action required I would like to help you schedule a hospital follow-up virtual or telephone visit with your PCP. This is a great way for you to connect with your provider to ensure you have safely transitioned home. If you are agreeable, I will send your request to a meter repair shop supervisor who will contact and assist you with that appointment. This will give you an opportunity to ask any questions or address any concerns you may have with your PCP. Inform the patient that if they have any questions or concerns prior to that appointment, to call their PCP's office right away. ACTION TAKEN: Patient desires an appointment - Routed to [facility] [[id number]] for scheduling telehealth visit (telephonic, virtual visit, or Facetime) within 7 days of discharge with PCP care team. Indicate hospital follow-up appointment needed within 7 days in Provider/FYI box. End Outreach. Your doctor would like us to remind you of the recommendations regarding the coronavirus (Covid19) outbreak: Avoid publi (more content not included)... [facility] 08-11-2023 Note Patient Outreach ( RXRF) -------- LUIZA MAY ([id number]) 1955 F Date Time Provider Department 08/11/23 SETH CHAWLA [facility] During your visit today, we recorded the following information about you: Seth Chawla [facility] 08/11/2023 11:59 AM Signed TRANSITION CARE MANAGEMENT (TCM) PHARMACY CONTACT Provider Action/FYI: TCM Medication Reconciliation partially completed for patient. See medication list table below for details. Medications discussed per patient preference outlined in bold in table below. Initial contact with patient post discharge, spoke to patient, and verified that any applicable caregiver is active in patient's medical care. Patient identified by name and . Summary: -Pt discharged from [facility] on 08/10/23. -Medication review done: Partial medication review completed - per patient preference Patient Concerns: Patient states she is aware of the changes to her medication list. Declined full medication review. Patient advised to review discharge medication list and call back with questions or concerns. History of Present Illness: The following content has been copied and pasted from patient's discharge summary. If discharge summary unavailable, After Visit Summary or last pertinent inpatient notes are copied and pasted. [facility] consulted Non-op management Continue Q4hr neuro checks Repeat CTH stable on 08/06/2023 No Keppra SQ Heparin for DVT ppx Follow-up with neurosurgery in [address] brain Scalp laceration S/P staple repair Staple removal 10-14 days post-repair Local wound care Acute on chronic hypoxia; COPD/emphysema Respiratory status remains stable on 4L O2 via NC at 97% On home supplemental O2 at 2L Continue pulmicort, duoneb Wean down to home 2L if able Encourage IS, PEP Current diet order: DIET REGULAR Pain regimen: PRN Tylenol Bowel regimen: Senna-S Labs: As above PPX: DVT: SQ Heparin; SCDs; Mobilize Ulcer: Protonix Vit D level if > 65 yo: Pending Medication Reconciliation: Legend: Stopped, New, Changed, Added to list Medication List Medication Directions Comments Action/Plan acetaminophen (TYLENOL) 325 mg tablet 2 tablets by ORAL/FEEDING TUBE route every 4 hours as needed for pain. PRN albuterol (PROVENTIL) 2.5 mg /3 mL (0.083 %) nebulizer solution Use 2.5 mg via nebulizer as directed. albuterol HFA (PROAIR HFA) 90 mcg/actuation inhaler Inhale 2 Puffs as instructed every 6 hours as needed. ARIPiprazole (ABILIFY) 2 mg tablet Take 1 tablet by mouth once daily. Discontinued: 08/10/2023 3:04 PM Aware atorvastatin (LIPITOR) 40 mg tablet Take 1 tablet by mouth once daily. Cholecalciferol, Vitamin D3, 25 mcg (1,000 unit) cap Take 1 capsule by mouth once daily. DULoxetine (CYMBALTA) 30 mg capsule Take 1 capsule by mouth once daily. escitalopram oxalate (LEXAPRO) 20 mg tablet Take 1 tablet by mouth once daily. folic acid 1 mg tablet Take 1 tablet by mouth once daily. furosemide (LASIX) 20 mg tablet Take 1 tablet by mouth two times a day. Last 3 Encounter BP Readings: Date: BP: 08/05/2023 151/97 07/14/2023 120/68 05/06/2023 122/68 Potassium Date Value Ref Range Status 08/10/2023 3.6 (L) 3.7 - 5.1 mmol/L Final hydrOXYzine pamoate (VISTARIL) 25 mg capsule Take 1 capsule by mouth three times a day as needed for anxiety. ipratropium-albuterol (DUONEB) 0.5 mg-3 mg(2.5 mg base)/3 mL nebu INHALE 1 vial via NEBULIZER EVERY 6 HOURS while awake Discontinued: 08/10/2023 3:04 PM Aware metoprolol succinate ER (TOPROL XL) 25 mg 24 hr tablet Take 1 tablet by mouth once daily. Last 3 Encounter BP Readings: Date: BP: 08/05/2023 151/97 07/14/2023 120/68 05/06/2023 122/[address] (PROTONIX) 40 mg tablet Take 1 tablet by mouth daily before breakfast. Take on empty stomach, 1/2 hr before meal. phenytoin (DILANTIN) 125 mg/5 mL susp Take 4 mL by mouth every 8 hours. potassium chloride ER (KLOR-CON) 20 mEq tablet Take 1 tablet by mouth two times a day. Potassium Date Value Ref Range Status 08/10/2023 3.6 (L) 3.7 - 5.1 mmol/L Final rOPINIRole (REQUIP) 1 mg tablet Take 1 tablet by mouth daily at bedtime. zolpidem (AMBIEN) 10 mg Take 1 tablet by mouth at bedtime as needed (insomnia) for up to 90 days. Preferred pharmacy: [facility] [place] [place] [address] - [address] - [phone] [facility] [address] Estimated Creatinine Clearance: 78.3 mL/min (based on SCr of 0.63 mg/dL). Estimated Glomerular Filtration Rate (mL/min/1.73m?) Date Value 08/10/2023 97 eGFR- (no units) Date Value 11/16/2020 >60 Additional follow up: Next 5 Appointments Date and Time Provider Department Dept Phone 08/23/2023 10:[address] [facility] SC[facility] OPER[facility] [phone] 08/23/2023 11:00 AM [place] (more content not included)... [facility] 08-10-2023 Note HNO ID: [id number] Author: EMMA DEVLIN, RN Service: Care Management Author Type: Registered Nurse Type: Care Mgt Progress Note Filed: 08/10/2023 15:24 Note Text: CARE MANAGEMENT DISCHARGE NOTE SERVICE DATE: August 10, 2023 SERVICE TIME: 3:24 PM Admission Date: 08/05/2023 LOS: 5 days Discharge Arrangement Discharge Arrangement: Home with Self Care Services Arranged Medical Services: Other: See Comment (patient refused recommended HHC) Caregiver Assessment Caregiver is ready, willing and able to meet the patient's needs as recommended by the inter-professional team: Yes Name of Caregiver: Dex, significant other Transportation Arrangements Transportation Arrangements: Car Handoff Communication: Handoff to: Primary Care Physician Primary Care Physician Name/Phone: summary of care to PCP, Maryam Franco Additional Information: Patient declined recommended HHC and is discharging home with self care. Significant other Dex to transport and bring portable O2 from patient's home. SIGNATURE: Emma Devlin RN PATIENT NAME: Luiza May DATE: August 10, 2023 TIME: 3:24 PM CONTACT #: [phone] [facility] 08-10-2023 Note HNO ID: [id number] Author: EMMA DEVLIN RN Service: Care Management Author Type: Registered Nurse Type: Care Mgt Progress Note Filed: 08/10/2023 15:23 Note Text: CARE MANAGEMENT PROGRESS NOTE SERVICE DATE: 08/10/2023 SERVICE TIME: 3:21 PM LOS: 5 days IMM Follow Up Copy Given: Yes Copy given to:: Patient Method: In Person Patient declined copy of letter stating she understands her rights and is agreeable to discharge. [place] of Choice Given: No Reason Not Given: Patient refused Met with patient in room to discuss therapy recs for home therapy. Patient declines stating she had it the last time she was discharged and doesn't feel she needs it now. Advised patient that if she changes her mind upon returning home that she will need to contact her PCP to arrange HHC. She understands and is agreeable. SIGNATURE: Emma Devlin RN PATIENT NAME: Luiza May DATE: August 10, 2023 TIME: 3:21 PM PAGER/CONTACT #: [phone] [facility] 08-10-2023 Note HNO ID: [id number] Author: ANDRE MARTINEZ, Research Coordinator Service: ? Author Type: Research Type: Progress Notes Filed: 08/10/2023 15:21 Note Text: -------- Summary: IRB #[id number]: Traumatic Brain Injury Patient Registry - Consent Discussion -------- Study #[id number]: Traumatic Brain Injury Patient Registry PI: Jessika Nicole MD Visit: Consent Visit Date: August 10, 2023 Patient Name: Luiza May Date of : 1955 MRN/E #: [id number] Patient followed up with for #[id number]: Traumatic Brain Injury Patient Registry. Study explained/reviewed with patient. Study related follow-up requirements were discussed. Patient provided informed consent for review. Patient stated she would like to review the study with her family before agreeing to participate. Research will follow up with patient at another time to review the study and see if the patient has gotten a chance to discuss the study with family. Andre Martinez, Research Coordinator Pager # [phone] [facility] 08-10-2023 Note HNO ID: [id number] Author: CRYS HAYWOOD PA-C Service: General Surgery Author Type: Physician Burglar Alarm Operator Type: Progress Notes Filed: 08/10/2023 09:07 Note Text: Trauma Surgery Progress Note SERVICE DATE: 08/10/2023 Trauma Service Pager: For questions or concerns Mon-Fri 6a-5p please page [phone]. After 5pm and on Weekends and Holidays, please page [phone] if in ICU or [phone] if on RNF. SUBJECTIVE: NAEON. Patient denies DIEHL or visual changes. Denies chest pain or worsening SOB. Tolerating diet. No abdominal pain, N/V, chills or sweats. Hopeful for discharge home today. OBJECTIVE: Vitals: Temp (24hrs), Av.8 ?C (98.3 ?F), Min:36.3 ?C (97.4 ?F), Max:37.6 ?C (99.7 ?F) BP 118/67 Pulse 96 Temp 36.3 ?C (97.4 ?F) (Oral) Resp 20 Ht 160 cm (5' 2.99 ) Wt 66.3 kg (146 lb 2.6 oz) LMP 02/11/2006 SpO2 97% BMI 25.90 kg/m? O2 Therapy: Nasal Cannula IANDO: Date 08/09/23699 - 08/10/2365808/10/23699 - 08/11/23658 Shift 1076-1934 3356-8226 4245-7278 24 Hour Total 5687-7570 0554-6939 5777-3151 24 Hour Total INTAKE PO 540 240 780 PO 540 240 780 Shift Total 540 240 780 OUTPUT Urine Urine Incontinence/Not Saved 1 x 1 x Urine Not Saved. 1 x 1 x Shift Total Weight (kg) 66.3 66.3 66.3 66.3 66.3 66.3 66.3 66.3 MEDICATIONS: Current Facility-Administered Medications Medication Dose Route Frequency haloperidol lactate 2 mg short-acting injection (HALDOL) 2 mg INTRAVENOUS q 6 H PRN metoprolol succinate ER 25 mg tab(s) (TOPROL XL) 25 mg ORAL DAILY phenytoin ER 100 mg cap(s) (DILANTIN) 100 mg ORAL TID phosphorus 250 mg tab(s) (K PHOS NEUTRAL) 250 mg ORAL PC and HS hydrOXYzine HCl 10 mg tab(s) (ATARAX) 10 mg ORAL q 6 H PRN heparin 5,000 Units injection 5,000 Units SUBCUTANEOUS q 8 H zolpidem 10 mg tab(s) (AMBIEN) 10 mg ORAL AT BEDTIME PRN furosemide 20 mg tab(s) (LASIX) 20 mg ORAL q 12 H 6a/6p albuterol 2.5 mg /3 mL (0.083 %) 2.5 mg (PROVENTIL) 2.5 mg INHALATION q 6 H PRN senna-docusate 8.6-50 mg 1 tablet (SENNA-S) 1 tablet ORAL BID pantoprazole DR 40 mg tab(s) (PROTONIX) 40 mg ORAL BEFORE BREAKFAST DAILY escitalopram oxalate 20 mg tab(s) (LEXAPRO) 20 mg ORAL DAILY DULoxetine 30 mg cap(s) (CYMBALTA) 30 mg ORAL DAILY predniSONE 40 mg tab(s) (DELTASONE) 40 mg ORAL DAILY acetaminophen 650 mg tab(s) (TYLENOL) 650 mg ORAL/FEEDING TUBE q 4 H PRN melatonin 6 mg tab(s) 6 mg ORAL DAILY (8 PM) ARIPiprazole 2 mg tablet (ABILIFY) 2 mg ORAL AT BEDTIME budesonide 0.5 mg/2 mL 1 mg (PULMICORT) 1 mg INHALATION BID And ipratropium-albuterol 3 mL nebulizer solution (DUONEB) 3 mL INHALATION QID NaCl 0.9% iv flush bag 20 mL INTRAVENOUS PRN atorvastatin 40 mg tab(s) (LIPITOR) 40 mg ORAL DAILY rOPINIRole 1 mg tab(s) (REQUIP) 1 mg ORAL AT BEDTIME ondansetron 4 mg tab(s) (ZOFRAN) 4 mg ORAL q 6 H PRN Or ondansetron (PF) 4 mg injection (ZOFRAN) 4 mg INTRAVENOUS q 6 H PRN Labs: Recent Labs 08/10/23 0446 08/09/23 0356 08/08/23201708/08/23 1041 08/08/23 0219 NA 143 143 -- -- 143 K 3.6* 3.7 -- -- 3.8 CHLOR 99 101 -- -- 102 CO2 36* 36* -- -- 34* BUN 10 10 -- -- 10 CREAT 0.63 0.68 -- -- 0.68 GLUC 97 102* -- -- 100* ANION 8* 6* -- -- 7* CA 8.9 9.0 -- -- 8.7 MG -- 1.9 -- -- 2.2 P -- 3.7 -- -- 4.0 WBC 6.94 6.69 -- -- 6.80 HB 10.1* 9.5* -- -- 10.1* HCT 32.5* 30.6* -- -- 32.7* PLT 158 144* -- -- 125* LACT -- 0.5 1.1 < > -- < > = values in this interval not displayed. PHYSICAL EXAM: Genl: Appears age appropriate. No acute distress. Resting comfortably. Head/Face: Normocephalic. Hemostatic scalp laceration with arturo in place. Eyes: EOMI. PERRLA. Sclera not icteric, not injected Resp: Lungs CTAB. No wheezes, rales or rhonchi. Respiratory status stable on 4L NC @ 97%. CVS: Mild tachycardia. Good perfusion throughout GI: Abdomen is soft, non-tender, non-distended. No guarding or peritoneal signs. MSK: No gross deformities. No clubbing, cyanosis or edema. Normal AROM x 4. Skin: Warm and dry. Not jaundiced. Neuro: AANDOx3. Strength and sensation grossly intact in all extremities. REGALADO. GCS15. Psych: Normal mood. Normal affect. Appropriate insight into current situation. ASSESSMENT AND PLAN: Assessment Active Hospital Problems Diagnosis Date Noted Subdural hematoma (HCC) 08/05/2023 Acute on chronic respiratory acidosis ([facility]) 08/07/2023 Hypophosphatemia 08/07/2023 Hypomagnesemia 08/07/2023 Hypokalemia 08/07/2023 Fall 08/06/2023 Scalp laceration, initial encounter 08/06/2023 Chronic hypercapnic respiratory failure ([facility]) 08/19/2022 COPD (chronic obstructive pulmonary disease) ([facility]) 08/11/2016 Assessment: 67 year old female s/p mechanical GLF on 08/05/2023 (Level II) Imaging performed: 08/05/2023 - CT HNTL, CXR, PXR, XR L shoulder 08/06/2023 - CXR, repeat CT brain Traumatic Injuries: Small volume acute parafalcine subdural hemorrhage without mass effect Scalp laceration Operations/Procedures: 1. 08/05/2023 - Scalp laceratio (more content not included)... [facility] 08-09-2023 Note HNO ID: [id number] Author: ANDRE MARTINEZ, Research Coordinator Service: ? Author Type: Research Type: Progress Notes Filed: 08/10/2023 15:08 Note Text: -------- Summary: IRB#[id number]: Traumatic Brain Injury Patient Registry - Consent Discussion -------- Study #[id number]: Traumatic Brain Injury Patient Registry PI: Jessika Nicole MD Visit: Consent Visit Date: August 09, 2023 Patient Name: Luiza May Date of : 1955 MRN/E #: [id number] Patient approached for consideration for #[id number]: Traumatic Brain Injury Patient Registry. Patient stated now was not a good time to discuss the study. Research will follow up at another time. Andre Martinez, Research Coordinator Pager # [phone] [facility] 08-09-2023 Note HNO ID: [id number] Author: CHRYSTAL LEWIS RN Service: Care Management Author Type: Registered Nurse Type: Care Mgt Initial Assessment Filed: 08/09/2023 11:01 Note Text: CARE MANAGEMENT: ASSESSMENT AND DISCHARGE PLAN SERVICE DATE: August 09, 2023 SERVICE TIME: 10:50 AM PCP: Maryam Franco MD Primary Contact: Extended Emergency Contact Information Primary Emergency Contact: Ameena Zhang Mobile Relation: Daughter Secondary Emergency Contact: Dex Patricia Mobile Relation: Significant other Admission Status: Inpatient Insurance Provider: [employer] HMO Discharge Planning requested by: Per Department Practice Potential Transition Plans To Be Determined Advance Directives Current Living Arrangements and Support Lives with: Spouse/significant other Type of Residence: Private Residence (House) Does the patient have to climb stairs at home?: No Support: Family members How do you manage to accomplish the following: Independent: Ambulation;Bathe/Shower;Dress;Meals/ Meal Prep;Going to the bathroom;Medication Management Dependent: Transportation to appointments/community Current Services/Equipment Current Post-Acute Service(s): Oxygen Current O2 Usage (device, rate, continuous/pulse and hrs per day): 2 LPM, continuous Current Post-Acute Service(s) Provider: [facility] Discharge Planning Patient Goal(s): General wellness [place] of Choice Explained: not yet Are you interested in bedside delivery of your medications? No Discharge Planning Participant(s): Spouse/significant other Patient/Family Comments: Caregiver Assessment: Caregiver is ready, willing and able to meet the patient's needs as recommended by the inter-professional team: Yes Name of Caregiver: Iris Moore Transport at Discharge: Transportation Arrangements: Car Needs Prior to Discharge: PT/OT eval Post-Acute Discharge Plan: Pt from home with Iris Moore. Pt has cane/walker and O2. [facility] is O2 provider. Pt with CPAP and nebulizer. Pt was up to chair this AM. Anticipate wean to 2L O2- home setting and DC home. SIGNATURE: Chrystal Lewis RN PATIENT NAME: Luiza May DATE: August 09, 2023 TIME: 10:50 AM CONTACT #: [phone] [facility] 08-09-2023 Note HNO ID: [id number] Author: SPENCER JIMENEZ MD Service: General Surgery Author Type: Resident Type: Progress Notes Filed: 08/09/2023 15:20 Note Text: -------- Attestation signed by Spencer Jimenez MD at 08/09/2023 3:20 PM Patient was seen and evaluated by myself on this day August 09, 2023. I agree with the presented documentation unless specifically noted. SIGNATURE: Spencer Jimenez MD PATIENT NAME: Luiza May DATE: August 09, 2023 TIME: 3:20 PM Pager: [phone] -------- Trauma Surgery Progress Note SERVICE DATE: 08/09/2023 Trauma Service Pager: For questions or concerns Mon-Fri 6a-5p please page [phone]. After 5pm and on Weekends and Holidays, please page [phone] if in ICU or [phone] if on RNF. SUBJECTIVE: NAEON. On NC this morning. No complaints. Neuro stable OBJECTIVE: Vitals: Temp (24hrs), Av.9 ?C (98.5 ?F), Min:36.8 ?C (98.2 ?F), Max:37.2 ?C (99 ?F) BP 162/85 Pulse 100 Temp 36.8 ?C (98.2 ?F) Resp 28 Ht 160 cm (5' 2.99 ) Wt 66.3 kg (146 lb 2.6 oz) LMP 02/11/2006 SpO2 98% BMI 25.90 kg/m? O2 Therapy: Nasal Cannula IANDO: Date 08/08/23699 - 08/09/2365808/09/23699 - 08/10/23 0659 Shift 6078-1438 9937-8208 5609-2886 24 Hour Total 5473-7253 4550-4145 3947-1604 24 Hour Total INTAKE PO 360 180 240 780 PO 360 180 240 780 Shift Total 360 180 240 780 OUTPUT Urine 1900 1900 Output ( External Collection Device 08/06/23 0730 [facility]) 1900 1900 Shift Total 1900 1900 Weight (kg) 70.7 70.7 66.3 66.3 66.3 66.3 66.3 66.3 MEDICATIONS Current Facility-Administered Medications Medication Dose Route Frequency potassium phosphate 45 mmol in NaCl 0.9% 500 mL 45 mmol INTRAVENOUS ONCE zolpidem 10 mg tab(s) (AMBIEN) 10 mg ORAL AT BEDTIME PRN heparin 5,000 Units injection 5,000 Units SUBCUTANEOUS q 12 H furosemide 20 mg tab(s) (LASIX) 20 mg ORAL q 12 H 6a/6p ARIPiprazole 2 mg tablet (ABILIFY) 2 mg ORAL DAILY PRN albuterol 2.5 mg /3 mL (0.083 %) 2.5 mg (PROVENTIL) 2.5 mg INHALATION q 6 H PRN senna-docusate 8.6-50 mg 1 tablet (SENNA-S) 1 tablet ORAL BID pantoprazole DR 40 mg tab(s) (PROTONIX) 40 mg ORAL BEFORE BREAKFAST DAILY escitalopram oxalate 20 mg tab(s) (LEXAPRO) 20 mg ORAL DAILY DULoxetine 30 mg cap(s) (CYMBALTA) 30 mg ORAL DAILY predniSONE 40 mg tab(s) (DELTASONE) 40 mg ORAL DAILY acetaminophen 650 mg tab(s) (TYLENOL) 650 mg ORAL/FEEDING TUBE q 4 H PRN melatonin 6 mg tab(s) 6 mg ORAL DAILY (8 PM) ARIPiprazole 2 mg tablet (ABILIFY) 2 mg ORAL AT BEDTIME budesonide 0.5 mg/2 mL 1 mg (PULMICORT) 1 mg INHALATION BID And ipratropium-albuterol 3 mL nebulizer solution (DUONEB) 3 mL INHALATION QID haloperidol lactate 2 mg short-acting injection (HALDOL) 2 mg INTRAVENOUS q 6 H PRN NaCl 0.9% iv flush bag 20 mL INTRAVENOUS PRN phenytoin 100 mg oral liquid (DILANTIN) 100 mg ORAL q 8 H atorvastatin 40 mg tab(s) (LIPITOR) 40 mg ORAL DAILY rOPINIRole 1 mg tab(s) (REQUIP) 1 mg ORAL AT BEDTIME potassium chloride ER 20-40 mEq tab(s) (KLOR-CON) 20-40 mEq ORAL/FEEDING TUBE PRN Or potassium chloride iv piggyback 20 mEq/100 mL 20 mEq INTRAVENOUS PRN magnesium sulfate iv piggyback in sterile water 2 g 50 mL 2 g INTRAVENOUS PRN phosphorus 500 mg tab(s) (K PHOS NEUTRAL) 500 mg ORAL/FEEDING TUBE PRN(NO DISPENSE) calcium gluconate iv piggyback 2 g in NaCl (iso-osmotic) 100 mL 2 g INTRAVENOUS PRN(NO DISPENSE) ipratropium-albuterol 3 mL nebulizer solution (DUONEB) 3 mL INHALATION q 6 H PRN ondansetron 4 mg tab(s) (ZOFRAN) 4 mg ORAL q 6 H PRN Or ondansetron (PF) 4 mg injection (ZOFRAN) 4 mg INTRAVENOUS q 6 H PRN Labs: Recent Labs 08/09/23 3534 08/08/23201708/08/23 1041 08/08/239 08/07/23 1520 08/07/238 08/06/23201008/06/232010 NA 143 -- -- 143 -- 143 < > -- K 3.7 -- -- 3.8 -- 3.6* < > -- CHLOR 101 -- -- 102 -- 104 < > -- CO2 36* -- -- 34* -- 33* < > -- BUN 10 -- -- 10 -- 15 < > -- CREAT 0.68 -- -- 0.68 -- 0.58 < > -- GLUC 102* -- -- 100* -- 117* < > -- ANION 6* -- -- 7* -- 6* < > -- CA 9.0 -- -- 8.7 -- 8.7 < > -- MG 1.9 -- -- 2.2 -- 1.7 < > -- P 3.7 -- -- 4.0 < > 1.9* -- -- WBC 6.69 -- -- 6.80 -- 4.94 < > -- HB 9.5* -- -- 10.1* -- 8.5* < > -- HCT 30.6* -- -- 32.7* -- 28.1* < > -- PLT 144* -- -- 125* -- 103* < > -- LACT 0.5 1.1 < > -- < > 0.5 -- 0.4* PH -- -- -- -- -- 7.35 -- 7.36 PCO2 -- -- -- -- -- 62* -- 60* PO2 -- -- -- -- -- 108* -- 72* BE -- -- -- -- -- 7* -- 7* HCO3 -- -- -- -- -- 34* -- 33* < > = values in this interval not displayed. PHYSICAL EXAM: Genl: Appears age appropriate. No acute distress. Resting comfortably. Head/Face: Normocephalic. Eyes: EOMI. Sclera not icteric, not injected Neck: No mid-line masses. C-spine non-tender. Resp: Lung sounds are clear bilat. No w (more content not included)... [facility] 08-08-2023 Note HNO ID: [id number] Author: JET SAMANO, RN Service: Nursing Author Type: Registered Nurse Type: Nursing Progress Note Filed: 08/08/2023 10:30 Note Text: Other: Attempted IV x2. One by us. Dr. Gia cody [facility] 08-08-2023 Note HNO ID: [id number] Author: SPENCER JIMENEZ MD Service: General Surgery Author Type: Resident Type: Progress Notes Filed: 08/08/2023 11:38 Note Text: -------- Attestation signed by Spencer Jimenez MD at 08/08/2023 11:38 AM Patient was seen and evaluated by myself on this day August 08, 2023. I agree with the presented documentation unless specifically noted. SIGNATURE: Spencer Jimenez MD PATIENT NAME: Luiza May DATE: August 08, 2023 TIME: 11:37 AM Pager: [phone] -------- Trauma Surgery Progress Note SERVICE DATE: 08/08/2023 Trauma Service Pager: For questions or concerns Wed-Wed 6a-5p please page [phone]. After 5pm and on Weekends and Holidays, please page [phone] if in ICU or [phone] if on RNF. SUBJECTIVE: NAEON. Doing well on NC. Not been up with PT/OT. Likely to RNF today. OBJECTIVE: Vitals: Temp (24hrs), Av.9 ?C (98.4 ?F), Min:36.8 ?C (98.2 ?F), Max:37 ?C (98.6 ?F) BP 129/64 Pulse 98 Temp 36.8 ?C (98.2 ?F) Resp 21 Ht 160 cm (5' 2.99 ) Wt 70.7 kg (155 lb 13.8 oz) LMP 02/11/2006 SpO2 99% BMI 27.62 kg/m? O2 Therapy: (S) Nasal Cannula IANDO: Date 08/07/23699 - 08/08/23 0659 08/08/23 07 - 08/09/23 0659 Shift 3444-7277 8492-7824 7943-3296 24 Hour Total 5753-1808 9486-4354 6845-0090 24 Hour Total INTAKE PO 340 360 120 820 PO 340 360 120 820 IV 854 854 Volume (mL) (potassium phosphate 45 mmol in NaCl 0.9% 500 mL) 500 500 Volume (mL) (magnesium sulfate in sterile water 4 g in 100 mL iv piggyback) 100 100 Volume (mL) (dextrose 5% in NaCl 0.9% iv infusion) 254 254 Shift Total 1194 325 113 2673 OUTPUT Urine 100 214 345 4624 Output ( External Collection Device 08/06/23 0730 [facility]) 100 965 490 6315 # of BMs Number of BMs 1 x 1 x Shift Total 100 277 292 7036 Weight (kg) 64.9 64.9 70.7 70.7 70.7 70.7 70.7 70.7 MEDICATIONS: Current Facility-Administered Medications Medication Dose Route Frequency furosemide 20 mg tab(s) (LASIX) 20 mg ORAL q 12 H 6a/6p ARIPiprazole 2 mg tablet (ABILIFY) 2 mg ORAL DAILY PRN albuterol 2.5 mg /3 mL (0.083 %) 2.5 mg (PROVENTIL) 2.5 mg INHALATION q 6 H PRN zolpidem 5 mg tab(s) (AMBIEN) 5 mg ORAL AT BEDTIME PRN senna-docusate 8.6-50 mg 1 tablet (SENNA-S) 1 tablet ORAL BID pantoprazole DR 40 mg tab(s) (PROTONIX) 40 mg ORAL BEFORE BREAKFAST DAILY escitalopram oxalate 20 mg tab(s) (LEXAPRO) 20 mg ORAL DAILY DULoxetine 30 mg cap(s) (CYMBALTA) 30 mg ORAL DAILY predniSONE 40 mg tab(s) (DELTASONE) 40 mg ORAL DAILY acetaminophen 650 mg tab(s) (TYLENOL) 650 mg ORAL/FEEDING TUBE q 4 H PRN melatonin 6 mg tab(s) 6 mg ORAL DAILY (8 PM) ARIPiprazole 2 mg tablet (ABILIFY) 2 mg ORAL AT BEDTIME budesonide 0.5 mg/2 mL 1 mg (PULMICORT) 1 mg INHALATION BID And ipratropium-albuterol 3 mL nebulizer solution (DUONEB) 3 mL INHALATION QID haloperidol lactate 2 mg short-acting injection (HALDOL) 2 mg INTRAVENOUS q 6 H PRN NaCl 0.9% iv flush bag 20 mL INTRAVENOUS PRN phenytoin 100 mg oral liquid (DILANTIN) 100 mg ORAL q 8 H atorvastatin 40 mg tab(s) (LIPITOR) 40 mg ORAL DAILY rOPINIRole 1 mg tab(s) (REQUIP) 1 mg ORAL AT BEDTIME potassium chloride ER 20-40 mEq tab(s) (KLOR-CON) 20-40 mEq ORAL/FEEDING TUBE PRN Or potassium chloride iv piggyback 20 mEq/100 mL 20 mEq INTRAVENOUS PRN magnesium sulfate iv piggyback in sterile water 2 g 50 mL 2 g INTRAVENOUS PRN phosphorus 500 mg tab(s) (K PHOS NEUTRAL) 500 mg ORAL/FEEDING TUBE PRN(NO DISPENSE) calcium gluconate iv piggyback 2 g in NaCl (iso-osmotic) 100 mL 2 g INTRAVENOUS PRN(NO DISPENSE) ipratropium-albuterol 3 mL nebulizer solution (DUONEB) 3 mL INHALATION q 6 H PRN ondansetron 4 mg tab(s) (ZOFRAN) 4 mg ORAL q 6 H PRN Or ondansetron (PF) 4 mg injection (ZOFRAN) 4 mg INTRAVENOUS q 6 H PRN Labs: Recent Labs 08/08/23 0219 08/07/23 1744 08/07/23 1520 08/07/23 0218 08/06/23201008/05/23 2210 02/01/24 2129 02/01/24 2129 NA 143 -- -- 143 -- -- -- 144 K 3.8 -- -- 3.6* -- -- -- 4.6 CHLOR 102 -- -- 104 -- -- -- 101 CO2 34* -- -- 33* -- -- -- 39* BUN 10 -- -- 15 -- -- -- 17 CREAT 0.68 -- -- 0.58 -- -- -- 0.68 GLUC 100* -- -- 117* -- -- -- 87 ANION 7* -- -- 6* -- -- -- 4* CA 8.7 -- -- 8.7 -- -- -- 8.9 MG 2.2 -- -- 1.7 -- -- -- -- P 4.0 5.9* -- 1.9* -- -- < > -- ALB -- -- -- -- -- -- -- 4.0 AST -- -- -- -- -- -- -- 18 ALT -- -- -- -- -- -- -- 13 ALKPHOS -- -- -- -- -- -- -- 82 TBILI -- -- -- -- -- -- -- <0.2* WBC 6.80 -- -- 4.94 -- -- -- 8.13 HB 10.1* -- -- 8.5* -- -- -- 10.3* HCT 32.7* -- -- 28.1* -- -- -- 35.0* PLT 125* -- -- 103* -- -- -- 147* LACT -- -- 1.9 0.5 0.4* < > -- -- INR -- -- -- -- -- -- -- 0.9 PH -- -- -- 7.35 7.36 < > -- -- PCO2 -- -- -- 62* 60* < > -- -- PO2 -- -- -- 108* 72* < > -- -- BE -- -- -- (more content not included)... [facility] 08-07-2023 Note HNO ID: [id number] Author: ?, ?, ? Service: ? Author Type: Hydropress Operator Type: Plan of Care Filed: 08/07/2023 16:46 Note Text: PHARMACY MEDICATION REVIEW Patient Name: Luiza May : 1955 The following medications were updated within the [facility] medication list: Medications ADDED to [facility] medication list albuterol (PROVENTIL) 2.5 mg /3 mL (0.083 %) nebulizer solution OTHER Yes Yes RX filled on 06/30/2023 for 180ml. Pt. states she uses PRN. ipratropium-albuterol (DUONEB) 0.5 mg-3 mg(2.5 mg base)/3 mL nebu OTHER Yes Yes RX filled on 06/30/2023 for 180ml. Pt. states she uses PRN. Medications CHANGED on [facility] medication list hydrOXYzine pamoate (VISTARIL) 25 mg capsule OTHER No No Sig: Take 1 capsule by mouth three times a day as needed for anxiety. Pt. states this medications is having little effect on her and she placed it on hold until she can speak to her physician about the medication. Medications REMOVED from [facility] medication list phenytoin (DILANTIN) 100 mg/4 mL susp Auto Not taken per pt. Additional comments: I was able to talk with pt. about her home medications. She verified the 19 medications recorded below on the [facility] list. I have added 2 medications to the [facility] list and noted a change to 1 medication per pt. interview. I have removed 1 medication (see above). Pt. states she uses [facility] . Most all her medications [facility]. Required follow up actions for nursing: Medication history completed by Historian. No nursing follow up required. The below information represents the best possible medication history: Yes Medication history completed by: Hydropress Operator: Pushpa Machado (Meter Repairer Helper) Source of history: Patient: Reliability of source: Appears reliable, clearly identified: Medication name, Medication dose, Medication route, and Medication frequency and Pharmacy records: [facility] Medication nonadherence identified: Unable to assess Reconciliation completed: No, pharmacist not yet reviewed Patient interested in Bedside Delivery Services or using [facility] at discharge? No Preferred outpatient pharmacy: [facility] [place] [place] [address] [address] - [phone] Allergies: Entex [Phenylephrin* Intolerance Tetanus Vaccines An* Swelling Prior to Admission Medications Prescriptions Last Dose Informant Patient Reported? Taking? ARIPiprazole (ABILIFY) 2 mg tablet OTHER No Yes Sig: Take 1 tablet by mouth once daily. ASPIR-LOW 81 mg EC tablet Patient No Yes Sig: Take 1 tablet by mouth once daily. Cholecalciferol, Vitamin D3, 25 mcg (1,000 unit) cap Patient No Yes Sig: Take 1 capsule by mouth once daily. DULoxetine (CYMBALTA) 30 mg capsule OTHER No Yes Sig: Take 1 capsule by mouth once daily. MEDICAL SUPPLY Unknown No No Sig: Portable oxygen cylinders albuterol (PROVENTIL) 2.5 mg /3 mL (0.083 %) nebulizer solution OTHER Yes Yes Sig: Use 2.5 mg via nebulizer as directed. albuterol HFA (PROAIR HFA) 90 mcg/actuation inhaler OTHER No Yes Sig: Inhale 2 Puffs as instructed every 6 hours as needed. atorvastatin (LIPITOR) 40 mg tablet OTHER No Yes Sig: Take 1 tablet by mouth once daily. escitalopram oxalate (LEXAPRO) 20 mg tablet OTHER No Yes Sig: Take 1 tablet by mouth once daily. folic acid 1 mg tablet Patient No Yes Sig: Take 1 tablet by mouth once daily. furosemide (LASIX) 20 mg tablet OTHER No Yes Sig: Take 1 tablet by mouth two times a day. hydrOXYzine pamoate (VISTARIL) 25 mg capsule OTHER No No Sig: Take 1 capsule by mouth three times a day as needed for anxiety. ipratropium-albuterol (DUONEB) 0.5 mg-3 mg(2.5 mg base)/3 mL nebu OTHER Yes Yes Sig: INHALE 1 vial via NEBULIZER EVERY 6 HOURS while awake meloxicam (MOBIC) 15 mg tablet OTHER No Yes Sig: Take 1 tablet by mouth once daily. With food. metoprolol succinate ER (TOPROL XL) 25 mg 24 hr tablet OTHER No Yes Sig: Take 1 tablet by mouth once daily. pantoprazole DR (PROTONIX) 40 mg tablet OTHER No Yes Sig: Take 1 tablet by mouth daily before breakfast. Take on empty stomach, 1/2 hr before meal. phenytoin (DILANTIN) 125 mg/5 mL susp OTHER No Yes Sig: Take 4 mL by mouth every 8 hours. potassium chloride ER (KLOR-CON) 20 mEq tablet OTHER No Yes Sig: Take 1 tablet by mouth two times a day. rOPINIRole (REQUIP) 1 mg tablet OTHER No Yes Sig: Take 1 tablet by mouth daily at bedtime. zolpidem (AMBIEN) 10 mg OTHER No Yes Sig: Take 1 tablet by mouth at bedtime as needed (insomnia) for up to 90 days. Facility-Administered Medications: None Pushpa Machado (Meter Repairer Helper) phone [phone] 08/07/2023 [facility] 08-07-2023 History of Past i llness Narrative Problem Noted Date Diagnosed Date Resolved Date Hypophosphatemia 08/07/2023 08/10/2023 Hypomagnesemia 08/07/2023 08/10/2023 Hypokalemia 08/07/2023 08/10/2023 Chronic pulmonary heart disease 05/03/2006 10/01/2022 Cough 04/01/2006 05/03/2006 Obstructive chronic bronchit is with exacerbation 05/03/2006 Overview: COPD Viral pneumonia, unspecified 05/03/2006 Overview: Pneumonia documented as of this encounter (statuses as of 08/11/2023) [facility] History of Past illness Narrative* Problem Noted Date Diagnosed Date Resolved Date Hypophosphatemia 08/07/2023 08/10/2023 Hypomagnesemia 08/07/2023 08/10/2023 Hypokalemia 08/07/2023 08/10/2023 Chronic pulmonary heart disease 05/03/2006 10/01/2022 Cough 04/01/2006 05/03/2006 Obstructive chronic bronchit is with exacerbation 05/03/2006 Overview: COPD Viral pneumonia, unspecified 05/03/2006 Overview: Pneumonia documented as of this encounter (statuses as of 08/18/2023) [facility] History of Past illness Narrative* Problem Noted Date Diagnosed Date Resolved Date Hypophosphatemia 08/07/2023 08/10/2023 Hypomagnesemia 08/07/2023 08/10/2023 Hypokalemia 08/07/2023 08/10/2023 Chronic pulmonary heart disease 05/03/2006 10/01/2022 Cough 04/01/2006 05/03/2006 Obstructive chronic bronchit is with exacerbation 05/03/2006 Overview: COPD Viral pneumonia, unspecified 05/03/2006 Overview: Pneumonia documented as of this encounter (statuses as of 08/19/2023) [facility] History of Past illness Narrative* Problem Noted Date Diagnosed Date Resolved Date Hypophosphatemia 08/07/2023 08/10/2023 Hypomagnesemia 08/07/2023 08/10/2023 Hypokalemia 08/07/2023 08/10/2023 Chronic pulmonary heart disease 05/03/2006 10/01/2022 Cough 04/01/2006 05/03/2006 Obstructive chronic bronchit is with exacerbation 05/03/2006 Overview: COPD Viral pneumonia, unspecified 05/03/2006 Overview: Pneumonia documented as of this encounter (statuses as of 08/19/2023) [facility] History of Past illness Narrative* Problem Noted Date Diagnosed Date Resolved Date Hypophosphatemia 08/07/2023 08/10/2023 Hypomagnesemia 08/07/2023 08/10/2023 Hypokalemia 08/07/2023 08/10/2023 Chronic pulmonary heart disease 05/03/2006 10/01/2022 Cough 04/01/2006 05/03/2006 Obstructive chronic bronchit is with exacerbation 05/03/2006 Overview: COPD Viral pneumonia, unspecified 05/03/2006 Overview: Pneumonia documented as of this encounter (statuses as of 09/03/2023) [facility] History of Past illness Narrative* Problem Noted Date Diagnosed Date Resolved Date Hypophosphatemia 08/07/2023 08/10/2023 Hypomagnesemia 08/07/2023 08/10/2023 Hypokalemia 08/07/2023 08/10/2023 Chronic pulmonary heart disease 05/03/2006 10/01/2022 Cough 04/01/2006 05/03/2006 Obstructive chronic bronchit is with exacerbation 05/03/2006 Overview: COPD Viral pneumonia, unspecified 05/03/2006 Overview: Pneumonia documented as of this encounter (statuses as of 09/13/2023) [facility] History of Past illness Narrative* Problem Noted Date Diagnosed Date Resolved Date Hypophosphatemia 08/07/2023 08/10/2023 Hypomagnesemia 08/07/2023 08/10/2023 Hypokalemia 08/07/2023 08/10/2023 Chronic pulmonary heart disease 05/03/2006 10/01/2022 Cough 04/01/2006 05/03/2006 Obstructive chronic bronchit is with exacerbation 05/03/2006 Overview: COPD Viral pneumonia, unspecified 05/03/2006 Overview: Pneumonia documented as of this encounter (statuses as of 09/22/2023) [facility] History of Past illness Narrative* Problem Noted Date Diagnosed Date Resolved Date Hypophosphatemia 08/07/2023 08/10/2023 Hypomagnesemia 08/07/2023 08/10/2023 Hypokalemia 08/07/2023 08/10/2023 Chronic pulmonary heart disease 05/03/2006 10/01/2022 Cough 04/01/2006 05/03/2006 Obstructive chronic bronchit is with exacerbation 05/03/2006 Overview: COPD Viral pneumonia, unspecified 05/03/2006 Overview: Pneumonia documented as of this encounter (statuses as of 09/25/2023) [facility] History of Past illness Narrative* Problem Noted Date Diagnosed Date Resolved Date Hypophosphatemia 08/07/2023 08/10/2023 Hypomagnesemia 08/07/2023 08/10/2023 Hypokalemia 08/07/2023 08/10/2023 Chronic pulmonary heart disease 05/03/2006 10/01/2022 Cough 04/01/2006 05/03/2006 Obstructive chronic bronchit is with exacerbation 05/03/2006 Overview: COPD Viral pneumonia, unspecified 05/03/2006 Overview: Pneumonia documented as of this encounter (statuses as of 09/27/2023) [facility] History of Past illness Narrative* Problem Noted Date Diagnosed Date Resolved Date Hypophosphatemia 08/07/2023 08/10/2023 Hypomagnesemia 08/07/2023 08/10/2023 Hypokalemia 08/07/2023 08/10/2023 Chronic pulmonary heart disease 05/03/2006 10/01/2022 Cough 04/01/2006 05/03/2006 Obstructive chronic bronchit is with exacerbation 05/03/2006 Overview: COPD Viral pneumonia, unspecified 05/03/2006 Overview: Pneumonia documented as of this encounter (statuses as of 10/13/2023) [facility]24 NoteHNO ID: [id number] Author: SEVERO DEVI APRN.AGRICULTURE WORKER Service: Neurosurgery Author Type: Nurse Practitioner Type: Progress Notes Filed: 08/07/2023 14:22 Note Text: Neurosurgery Progress Note SERVICE DATE: 08/07/2023 SUBJECTIVE: NAEON. Denies DIEHL/n/v OBJECTIVE: Vitals: Temp (24hrs), Av.6 ?C (97.9 ?F), Min:36.5 ?C (97.7 ?F), Max:36.8 ?C (98.2 ?F) BP 128/112 Pulse 81 Temp 36.5 ?C (97.7 ?F) (Oral) Resp 22 Ht 160 cm (5' 2.99 ) Wt 64.9 kg (143 lb 1.3 oz) LMP 02/11/2006 SpO2 98% BMI 25.35 kg/m? O2 Therapy: BiLevel Positive Airway Pressure IANDO: Date 08/06/23 07 - 08/07/23 0659 08/07/23 07 - 08/08/23 0659 Shift 6678-9647 0098-2870 8247-0664 24 Hour Total 7997-3586 8891-4198 0347-1093 24 Hour Total INTAKE PO 100 200 300 PO 100 200 300 IV 225 609 786 0355 Volume (mL) (dextrose 5% in NaCl 0.9% iv infusion) 225 678 158 3509 Shift Total 325 8287 816 6770 OUTPUT Urine 0 300 400 700 100 100 Output ( External Collection Device 08/06/23 0730 [facility]) 0 300 400 700 100 100 # of BMs Number of BMs 0 x 0 x 1 x 1 x Shift Total 0 300 400 700 100 100 Weight (kg) 64.2 64.2 64.9 64.9 64.9 64.9 64.9 64.9 Medications: Current Facility-Administered Medications Medication Dose Route Frequency potassium phosphate 45 mmol in NaCl 0.9% 500 mL 45 mmol INTRAVENOUS ONCE magnesium sulfate in sterile water 4 g in 100 mL iv piggyback 4 g INTRAVENOUS ONCE senna-docusate 8.6-50 mg 1 tablet (SENNA-S) 1 tablet ORAL BID pantoprazole DR 40 mg tab(s) (PROTONIX) 40 mg ORAL BEFORE BREAKFAST DAILY escitalopram oxalate 20 mg tab(s) (LEXAPRO) 20 mg ORAL DAILY DULoxetine 30 mg cap(s) (CYMBALTA) 30 mg ORAL DAILY predniSONE 40 mg tab(s) (DELTASONE) 40 mg ORAL DAILY dextrose 5% in NaCl 0.9% iv infusion 75 mL/hr INTRAVENOUS CONTINUOUS acetaminophen 650 mg tab(s) (TYLENOL) 650 mg ORAL/FEEDING TUBE q 4 H PRN melatonin 6 mg tab(s) 6 mg ORAL DAILY (8 PM) ARIPiprazole 2 mg tablet (ABILIFY) 2 mg ORAL AT BEDTIME budesonide 0.5 mg/2 mL 1 mg (PULMICORT) 1 mg INHALATION BID And ipratropium-albuterol 3 mL nebulizer solution (DUONEB) 3 mL INHALATION QID haloperidol lactate 2 mg short-acting injection (HALDOL) 2 mg INTRAVENOUS q 6 H PRN NaCl 0.9% iv flush bag 20 mL INTRAVENOUS PRN phenytoin 100 mg oral liquid (DILANTIN) 100 mg ORAL q 8 H atorvastatin 40 mg tab(s) (LIPITOR) 40 mg ORAL DAILY rOPINIRole 1 mg tab(s) (REQUIP) 1 mg ORAL AT BEDTIME potassium chloride ER 20-40 mEq tab(s) (KLOR-CON) 20-40 mEq ORAL/FEEDING TUBE PRN Or potassium chloride iv piggyback 20 mEq/100 mL 20 mEq INTRAVENOUS PRN magnesium sulfate iv piggyback in sterile water 2 g 50 mL 2 g INTRAVENOUS PRN phosphorus 500 mg tab(s) (K PHOS NEUTRAL) 500 mg ORAL/FEEDING TUBE PRN(NO DISPENSE) calcium gluconate iv piggyback 2 g in NaCl (iso-osmotic) 100 mL 2 g INTRAVENOUS PRN(NO DISPENSE) ipratropium-albuterol 3 mL nebulizer solution (DUONEB) 3 mL INHALATION q 6 H PRN ondansetron 4 mg tab(s) (ZOFRAN) 4 mg ORAL q 6 H PRN Or ondansetron (PF) 4 mg injection (ZOFRAN) 4 mg INTRAVENOUS q 6 H PRN Labs: Recent Labs 08/07/23 0218 08/06/23201008/05/23220908/05/239 NA 143 -- -- 144 K 3.6* -- -- 4.6 CHLOR 104 -- -- 101 CO2 33* -- -- 39* BUN 15 -- -- 17 CREAT 0.58 -- -- 0.68 GLUC 117* -- -- 87 ANION 6* -- -- 4* CA 8.7 -- -- 8.9 MG 1.7 -- -- -- P 1.9* -- -- -- ALB -- -- -- 4.0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 People who abuse alcohol. What are the signs or symptoms? Symptoms of this condition can vary depending on the size of the hematoma. Symptoms can be mild, severe, or life-threatening. They include: Headaches. Nausea or vomiting. Changes in vision, such as double vision or loss of vision. Changes in speech or trouble understanding what people say. Loss of balance or trouble walking. Weakness, numbness, or tingling in the arms or legs, especially on one side of the body. Seizures. Change in personality. Increased sleepiness. Memory loss. Loss of consciousness. Coma. Symptoms of acute subdural hematoma can develop over minutes or hours. Symptoms of chronic subduralhematoma may develop over weeks or months. How is this diagnosed? This condition is diagnosed based on the results of: A physical exam. Tests of strength, reflexes, coordination, senses, manner of walking (gait), and facial and eye movements (neurological exam). Imaging tests, such as an MRI or a CT scan. How is this treated? Treatment for this condition depends on the type of hematoma and how severe it is. Treatment for acute hematoma may include: Emergency surgery to drain blood or remove a blood clot. Medicines that help the body get rid of excess fluids (diuretics). These may help to reduce pressure in the brain. Assisted breathing (ventilation). Treatment for chronic hematoma may include: Observation and bed rest at the hospital. Surgery. If you take blood thinners, you may need to stop taking them for a short time. You may also be given anti-seizure (anticonvulsant) medicine. Sometimes, no treatment is needed for chronic subdural hematoma. Follow these instructions at home: Activity Avoid situations where you could injure your head again, such as in competitive sports, downhill snow sports, and horseback riding. Do not do these activities until your health care provider approves. ?Wear protective gear, such as a helmet, when participating in activities such as biking or contactsports. Avoid too much visual stimulation while recovering. This means limiting how much you read and limiting your screen time on a smart phone, tablet, computer, or TV. Rest as told by your health care provider. Rest helps the brain heal. Try to avoid activities that cause physical or mental stress. Return to work or school as told by your health care provider. Do not lift anything that is heavier than 5 lb (2.3 kg), or the limit you are told, until your health care provider says that it is safe. Do not drive, ride a bike, or use heavy machinery until your health care provider approves. Always wear your seat belt when you are in a motor vehicle. Alcohol use Do not drink alcohol if your health care provider tells you not to drink. If you drink alcohol, limit how much you use to: ?0 1 drink a day for women. ?0 2 drinks a day for men. General instructions Monitor your symptoms, and ask people around you to do the same. Recovery from brain injuries varies. Talk with your health care provider about what to expect. Take vwhs-mbx-uuibgte and prescription medicines only as told by your health care provider. Do not take blood thinners or NSAIDs unless your health care provider approves. These include aspirin, ibuprofen, naproxen, and warfarin. Keep your home environment safe to reduce the risk of falling. Keep all follow-up visits as told by your health care provider. This is important. Where to find more information National [place] of Neurological Disorders and Stroke: www.ninds.nih.gov [place] [employer] Neurology (AAN): www.aan.com Brain Injury Association of [place]: www.biausa.org Get help right away if you: Are taking blood thinners and you fall or you experience minor trauma to the head. If you take any blood thinners, even a very small injury can cause a subdural hematoma. Have a bleeding disorder and you fall or you experience minor trauma to the head. Develop any of the following symptoms after a head injury: ?Clear fluid draining from your nose or ears. ?Nausea or vomiting. ?Changes in speech or trouble understanding what people say. ?Seizures. ?Drowsiness or a decrease in alertness. ?Double vision. ?Numbness or inability to move (paralysis) in any part of your body. ?Difficulty walking or poor coordination. ?Difficulty thinking. ?Confusion or forgetfulness. ?Personality changes. ?Irrational or aggressive behavior. These symptoms may represent a serious problem that is an emergency. Do not wait to see if the symptoms will go away. Get medical help right away. Call your local emergency services (911 in the [place] Do not drive yourself to the hospital. Summary A subdural hematoma is a collection of blood between the brain and its outer covering (dura). Treatment for this condition depends on what type of subdural hematoma you have and how severe it is. Symptoms can vary from mild to severe to life-threatening. Monitor your symptoms, and ask others around you to do the same. This information is not intended to replace advice given to you by your health care provider. Make sure you discuss any questions you have with your health care provider. Document Released: 05/08/2005 Document Revised: 05/22/2019 Document Reviewed: 05/22/2019 [employer] Patient Education 2020 [id number]. 02/09/2022 09:09:09 Fall Prevention in the Home, Adult Fall Prevention in the Home, Adult Falls can cause injuries and can affect people from all age groups. There are many simple things that you can do to make your home safe and to help prevent falls. Ask for help when making these changes, if needed. What actions can I take to prevent falls? General instructions Use good lighting in all rooms. Replace any light bulbs that burn out. Turn on lights if it is dark. Use night-lights. Place frequently used items in gwzj-yr-rgogd places. Lower the shelves around your home if necessary. Set up furniture so that there are clear paths around it. Avoid moving your furniture around. Remove throw rugs and other tripping hazards from the floor. Avoid walking on wet floors. Fix any uneven floor surfaces. Add color or contrast paint or tape to grab bars and handrails in your home. Place contrasting color strips on the first and last steps of stairways. When you use a stepladder, make sure that it is completely opened and that the sides are firmly locked. Have someone hold the ladder while you are using it. Do not climb a closed stepladder. Be aware of any and all pets. What can I do in the bathroom? Keep the floor dry. Immediately clean up any water that spills onto the floor. Remove soap buildup in the tub or shower on a regular basis. Use non-skid mats or decals on the floor of the tub or shower. Attach bath mats securely with double-sided, non-slip rug tape. If you need to sit down while you are in the shower, use a plastic, non-slip stool. Install grab bars by the toilet and in the tub and shower. Do not use towel bars as grab bars. What can I do in the bedroom? Make sure that a bedside light is easy to reach. Do not use oversized bedding that drapes onto the floor. Have a firm chair that has side arms to use for getting dressed. What can I do in the kitchen? Clean up any spills right away. If you need to reach for something above you, use a sturdy step stool that has a grab bar. Keep electrical cables out of the way. Do not use floor montserratian or wax that makes floors slippery. If you must use wax, make sure that it is non-skid floor wax. What can I do in the stairways? Do not leave any items on the stairs. Make sure that you have a light switch at the top of the stairs and the bottom of the stairs. Have them installed if you do not have them. Make sure that there are handrails on both sides of the stairs. Fix handrails that are broken or loose. Make sure that handrails are as long as the stairways. Install non-slip stair treads on all stairs in your home. Avoid having throw rugs at the top or bottom of stairways, or secure the rugs with carpet tape to prevent them from moving. Choose a carpet design that does not hide the edge of steps on the stairway. Check any carpeting to make sure that it is firmly attached to the stairs. Fix any carpet that is loose or worn. What can I do on the outside of my home? Use bright outdoor lighting. Regularly repair the edges of walkways and driveways and fix any cracks. Remove high doorway thresholds. Trim any shrubbery on the main path into your home. Regularly check that handrails are securely fastened and in good repair. Both sides of any steps should have handrails. Install guardrails along the edges of any raised decks or porches. Clear walkways of debris and clutter, including tools and rocks. Have leaves, snow, and ice cleared regularly. Use sand or salt on walkways during winter months. In the garage, clean up any spills right away, including grease or oil spills. What other actions can I take? Wear closed-toe shoes that fit well and support your feet. Wear shoes that have rubber soles or lowheels. Use mobility aids as needed, such as canes, walkers, scooters, and crutches. Review your medicines with your health care provider. Some medicines can cause dizziness or changesin blood pressure, which increase your risk of falling. Talk with your health care provider about other ways that you can decrease your risk of falls. Thismay include working with a physical therapist or field sales trainer to improve your strength, balance, and endurance. Where to find more information Centers for Disease Control and Prevention, STEAD[employer]: https://www.cdc.gov National [place] on Aging: https://jb3ptbs.saira.nih.gov Contact a health care provider if: You are afraid of falling at home. You feel weak, drowsy, or dizzy at home. You fall at home. Summary There are many simple things that you can do to make your home safe and to help prevent falls. Ways to make your home safe include removing tripping hazards and installing grab bars in the bathroom. Ask for help when making these changes in your home. This information is not intended to replace advice given to you by your health care provider. Make sure you discuss any questions you have with your health care provider. Document Released: 06/11/2003 Document Revised: 06/03/2018 Document Reviewed: 02/03/2018 [employer] Patient Education 2020 [id number]. 02/09/2022 09:09:00 Chronic Obstructive Pulmonary Disease, Ieko-vs-Gzvf Chronic Obstructive Pulmonary Disease Chronic obstructive pulmonary disease (COPD) is a common lung problem. In COPD, the flow of air from the lungs is limited. The way your lungs work will probably never return to normal, but there are things you can do to improve you lungs and make yourself feel better. HOME CARE Take all medicines as told by your doctor. Only take fiqn-bni-hmpwsee or prescription medicines as told by your doctor. Avoid medicines or cough syrups that dry up your airway (such as antihistamines) and do not allow you to get rid of thick spit. You do not need to avoid them if told differently by your doctor. If you smoke, stop. Smoking makes the problem worse. Avoid being around things that make your breathing worse (like smoke, chemicals, and fumes). Use oxygen therapy and therapy to help improve your lungs (pulmonary rehabilitation) if told by your doctor. If you need home oxygen therapy, ask your doctor if you should buy a tool to measure your oxygen level (oximeter). Avoid people who have a sickness you can catch (contagious). Avoid going outside when it is very hot, cold, or humid. Eat healthy foods. Eat smaller meals more often. Rest before meals. Stay active, but remember to also rest. Make sure to get all the shots (vaccines) your doctor recommends. Ask your doctor if you need a pneumonia shot. Learn and use tips on how to relax. Learn and use tips on how to control your breathing as told by your doctor. Try: ? Breathing in (inhaling) through your nose for 1 second. Then, pucker your lips and breath out (exhale) through your lips for 2 seconds. ? Putting one hand on your belly (abdomen). Breathe in slowly through your nose for 1 second. Your hand on your belly should move out. Pucker your lips and breathe out slowly through your lips. Your hand on your belly should move in as you breathe out. Learn and use controlled coughing to clear thick spit from your lungs. 1. Lean your head a little forward. 2. Breathe in deeply. 3. Try to hold your breath for 3 seconds. 4. Keep your mouth slightly open while coughing 2 times. 5. Spit any thick spit out into a tissue. 6. Rest and do the steps again 1 or 2 times as needed. GET HELP IF: You cough up more thick spit than usual. There is a change in the color or thickness of the spit. It is harder to breathe than usual. Your breathing is faster than usual. GET HELP RIGHT AWAY IF: You have shortness of breath while resting. You have shortness of breath that stops you from: ? Being able to talk. ? Doing normal activities. You chest hurts for longer than 5 minutes. Your skin color is more blue than usual. Your pulse oximeter shows that you have low oxygen for longer than 5 minutes. MAKE SURE YOU: Understand these instructions. Will watch your condition. Will get help right away if you are not doing well or get worse. Document Released: 12/07/2008 Document Revised: 04/11/2014 Document Reviewed: 02/15/2014 ExitCare Patient Information 2015 [employer], [facility]. This information is not intended to replace advicegiven to you by your health care provider. Make sure you discuss any questions you have with your health care provider. Follow Up Care 01/27/2022 12:11:01 With:MARYAM FRANCO MD Address: [address] [place] [address]- When:02/17/2022 15:40:00 Comments:Take Discharge Instructions to Dr Visit...if Home Care does not remove sutures- please ask at this appt for Dr to remove With:SEVERO JURADO MD Address: [address] [place] [address]- [phone] When:04/21/2022 13:40:00 Comments:Neurosurgical follow up Shanti Jaramillo 08-08-2022 Note Discharge Instructions Thank you for allowing [facility] to assist you with your healthcare needs. The following is importantdischarge information regarding your hospital visit. Your Care Team JOY STAHL MD Your Diagnosis Subdural hematoma Anxiety COPD (chronic obstructive pulmonary disease) History of stroke History of cranioplasty Alcohol abuse Anemia What to do next Follow Up Appointments Follow Up with SEVERO JURADO MD When 04/21/2022 01:40 PM EDT Why: Neurosurgical follow up Where: [address] [place] [address] [phone] Follow Up with MARYAM FRANCO MD When 02/17/2022 03:40 PM EDT Why: Take Discharge Instructions to Dr Visit...if Home Care does not remove sutures- please ask at this appt for Dr to remove Where: [address] [place] [address]- The Following Activity and Diet Have Been Ordered for You Discharge Activity - Ordered -- As instructed by therapy, Shower with help only-Compression stockings on in am/off in pm due to history of DVT-, 02/09/22 9:13:00 EDT Discharge Driving Restrictions - Ordered -- * Other, specify in special instructions, No driving, 02/09/22 9:13:00 EDT Discharge Diet - Ordered -- Regular diet-Someone to help cut foods-Can continue Nutritional supplement: Ensure High Protein 1 serving daily, if desired-, 02/09/22 9:13:00 EDT The Following Equipment Has Been Ordered for You Discharge Home Equipment Discharge Communication Order - Ordered -- Continue Oxygen at home 2 liters/nasal canula as used prior to admission, 02/09/22 9:14:05 EDT Discharge Home Equipment - Ordered -- Wheelchair; light weight, Transport, 99 month(s), [facility], 02/06/22 16:01:00 EDT Discharge Wound Care - Ordered -- Keep head incision clean and dry- May wash head with Dial or anti bacterial soap and water and pat dry-, 02/09/22 9:13:00 EDT Someone Will Contact You Regarding These Home Health Referrals Consult Home Health - Aide - Ordered -- 02/09/22 9:13:00 EDT, Aide Reason: Bathing assistance Consult Home Health - OT - Ordered -- 02/09/22 9:13:00 EDT, Home Therapy Order: OT Eval & Treat, Home Therapy Instruction: Full weight bearing, Reason: Post neurosurgery Consult Home Health - PT - Ordered -- 02/09/22 9:13:00 EDT, Home Therapy Order: PT Eval & Treat, Reason: Post neurosurgery, Home Therapy Instruction: Full weight bearing, Provided by [facility] [phone] Consult Home Health - RN - Ordered -- 02/09/22 9:13:00 EDT, Reason: Disease management Medication management Consult Home Health - Drill Press Operator Numerical Control - Ordered -- 02/09/22 9:13:00 EDT, Reason: Safety issues Consult Home Health - Speech Therapy - Ordered -- 02/09/22 9:13:00 EDT, Home Therapy Order: Speech Eval & Treat, Reason: Cognitive assessment Allergies tetanus toxoid (Hives, Swelling) Medications Please ask your primary doctor or pharmacist before taking any other medication not listed, including over the counter drugs, herbal medications, vitamins and or supplements as they may interact withyour home medications. What How Much When Why Instructions Last Dose New Al hydroxide/ Mg hydroxide/ simethicone (Maalox) by mouth Every 6 hours as needed for Indigestion New bacitracin/ neomycin/ polymyxin B topical (Neosporin topical ointment) 1 application Topical Two (2) times a day New calcium carbonate (Tums 500 mg oral tablet, chewable) 1 tab(s) Chewed Four (4) times a day as needed for Heartburn New docusate (Colace 100 mg oral capsule) 1 cap by mouth Two (2) times a day as needed for Constipation New magnesium hydroxide (Milk of Magnesia) 30 Milliliter by mouth Daily at bedtime as needed for Constipation New melatonin (melatonin 3 mg oral tablet) 1 tab(s) by mouth Daily at bedtime as needed for Sleep New ocular lubricant (Artificial Tears) 2 Drops Both eyes Two (2) times a day as needed for Dry eyes New pantoprazole (Protonix 40 mg oral enteric coated tablet) 1 tab(s) by mouth Two (2) times daily before meals Pickup at [facility] New polyethylene glycol 3350 (MiraLax oral powder for reconstitution) by mouth Once a day as needed for Constipation Changed DULoxetine (DULoxetine 60 mg oral delayed release capsule) 1 cap by mouth Once a day Pickup at [facility] [facility] Changed albuterol (albuterol MDI (90 mcg/ inh) CFC free inhalation aerosol) 2 puff(s) by inhalation Four (4) times a day as needed for Shortness of breath (SOB) Pickup at [employer] [facility] Changed bisacodyl (bisacodyl 10 mg rectal suppository) 1 suppository(ies) in the rectum Once a day as needed for Constipation Changed escitalopram (escitalopram 10 mg oral tablet) 1 tab(s) by mouth Once a day Pickup at [facility] Changed hydrOXYzine (hydrOXYzine hydrochloride 25 mg oral tablet) 2 tab(s) by mouth Every 6 hours as needed for Anxiety Duration: 30 Days Pickup at [facility] [employer] [facility] Changed oxyCODONE (oxyCODONE 5 mg oral tablet ( IMMEDIATE release )) 1 tab(s) by mouth Every 6 hours as needed for Pain Subdural hematoma Duration: 5 Days Pickup at [facility] Changed senna (senna (sennosides) 8.6 mg oral tablet) 1 tab(s) by mouth Once a day Changed zolpidem (Ambien 5 mg oral tablet) 1 tab(s) by mouth Daily at bedtime as needed for Sleep Duration: 7 Days Pickup at [facility] Unchanged fluticasone/ umeclidinium/ vilanterol (Trelegy Ellipta 100 mcg-62.5 mcg-25 mcg/ inh inhalation powder) 1 puff(s) by inhalation Once a day at the same time every day. Following administration, rinse mouth with water after use (do not swallow). Pharmacy Information [facility]: [address] [place], [place] [id number] [phone] What How Much When Comments Stop Taking budesonide/ formoterol/ glycopyrrolate (Breztri Aerosphere inhalation aerosol) See instructions 1 puff 2 times daily Please take this list to your next doctor s visit. Bring all medications you take, including over the counter medications, herbals and other supplements with you to your doctor s visit. Patients and families are reminded to discard old lists and to update any records with all medication providers or retail pharmacies. Education Materials Cranioplasty, Care After This sheet gives you information about how to care for yourself after your procedure. Your health care provider may also give you more specific instructions. If you have problems or questions, contact your health care provider. What can I expect after the procedure? After the procedure, it is common to have: Headaches. Tenderness in the incision area. Follow these instructions at home: Medicines Take tkeq-hbf-ajhsrzn and prescription medicines only as told by your health care provider. If you were prescribed an antibiotic medicine, take it as told by your health care provider. Do notstop using the antibiotic even if you start to feel better. Ask your health care provider if the medicine prescribed to you: ? Requires you to avoid driving or using heavy machinery. ? Can cause constipation. You may need to take these actions to prevent or treat constipation: ? Drink enough fluid to keep your urine pale yellow. ? Take ooqu-vxt-xwcvsge or prescription medicines. ? Eat foods that are high in fiber, such as beans, whole grains, and fresh fruits and vegetables. ? Limit foods that are high in fat and processed sugars, such as fried or sweet foods. Incision care Follow instructions from your health care provider about how to take care of your incision. Make sure you: ? Wash your hands with soap and water before and after you change your bandage (dressing). If soap and water are not available, use hand wax machine operator. ? Change your dressing as told by your health care provider. ? Leave stitches (sutures), skin glue, or adhesive strips in place. These skin closures may need to stay in place for 2 weeks or longer. If adhesive strip edges start to loosen and curl up, you may trim the loose edges. Do not remove adhesive strips completely unless your health care provider tells you to do that. Check your incision area every day for signs of infection. Check for: ? More redness, swelling, or pain. ? Fluid or blood. ? Warmth. ? Pus or a bad smell. Activity Rest as told by your health care provider. Stop or limit other activities as told. Avoid sitting for a long time without moving. Get up to take short walks every 1 2 hours. This is important to improve blood flow and breathing. Ask for help if you feel weak or unsteady. Do not lift anything that is heavier than 10 lb (4.5 kg), or the limit that you are told, until your health care provider says that it is safe. Avoid any activities where you could hit your head until your health care provider says that these are okay to do. These activities include sports, riding bicycles or motorcycles, or working at heights. Return to your normal activities as told by your health care provider. Ask your health care provider what activities are safe for you. General instructions Do not use any products that contain nicotine or tobacco, such as cigarettes, e- cigarettes, and chewing tobacco. These can delay bone healing. If you need help quitting, ask your health care provider. Do not take baths, swim, or use a hot tub until your health care provider approves. Ask your healthcare provider if you may take showers. You may only be allowed to take sponge baths. Do not drink alcohol or use drugs. Raise (elevate) your head above the level of your heart when lying down. Keep all follow-up visits as told by your health care provider. This is important. Contact a health care provider if: You have a fever. Pain medicine is not controlling your headache or other pain. You have any of these signs of infection: ? More redness, swelling, or pain around your incision. ? Fluid or blood coming from your incision. ? Warmth coming from your incision. ? Pus or a bad smell coming from your incision. Get help right away if: You have any symptoms of a stroke. BE FAST is an easy way to remember the main warning signs of astroke: ? B - Balance. Signs are dizziness, sudden trouble walking, or loss of balance. ? E - Eyes. Signs are trouble seeing or a sudden change in vision. ? F - Face. Signs are sudden weakness or numbness of the face, or the face or eyelid drooping on one side. ? A - Arms. Signs are weakness or numbness in an arm. This happens suddenly and usually on one side of the body. ? S - Speech. Signs are sudden trouble speaking, slurred speech, or trouble understanding what peoplesay. ? T - Time. Time to call emergency services. Write down what time symptoms started. You have other signs of a stroke, such as: ? A sudden, severe headache with no known cause. ? Nausea or vomiting. ? Seizure. You hit your head. These symptoms may represent a serious problem that is an emergency. Do not wait to see if the symptoms will go away. Get medical help right away. Call your local emergency services (911 in the [place] Do not drive yourself to the hospital. Summary After the procedure, it is common to have head pain. Take djws-kym-yaqsyhk and prescription medicines only as told by your health care provider. Return to your normal activities as told by your health care provider. Ask your health care provider what activities are safe for you. Follow instructions from your health care provider about how to take care of your incision. Check your incision area every day for signs of infection. Keep all follow-up visits as told by your health care provider. This is important. This information is not intended to replace advice given to you by your health care provider. Make sure you discuss any questions you have with your health care provider. Document Released: 12/06/2019 Document Revised: 01/10/2020 Document Reviewed: 12/06/2019 Elsevier Patient Education 2020 [employer] Subdural Hematoma A subdural hematoma is a collection of blood between the brain and its outer covering (dura). As the amount of blood increases, pressure builds on the brain. There are two types of subdural hematomas: Acute. This type develops shortly after a hard, direct hit to the head and causes blood to collect very quickly. This is a medical emergency. If it is not diagnosed and treated quickly, it can lead to severe brain injury or . Chronic. This is when bleeding develops more slowly, over weeks or months. In some cases, this typedoes not cause symptoms. What are the causes? This condition is caused by bleeding (hemorrhage) from a broken (ruptured) blood vessel. In most cases, a blood vessel ruptures and bleeds because of a head injury, such as from a hard, direct hit. Head injuries can happen in car accidents, falls, assaults, or while playing sports. In rare cases, a hemorrhage can happen without a known cause (spontaneously), especially if you take blood thinners (anticoagulants). What increases the risk? This condition is more likely to develop in: Older people. Infants. People who take blood thinners. People who have head injuries. People who abuse alcohol. What are the signs or symptoms? Symptoms of this condition can vary depending on the size of the hematoma. Symptoms can be mild, severe, or life-threatening. They include: Headaches. Nausea or vomiting. Changes in vision, such as double vision or loss of vision. Changes in speech or trouble understanding what people say. Loss of balance or trouble walking. Weakness, numbness, or tingling in the arms or legs, especially on one side of the body. Seizures. Change in personality. Increased sleepiness. Memory loss. Loss of consciousness. Coma. Symptoms of acute subdural hematoma can develop over minutes or hours. Symptoms of chronic subduralhematoma may develop over weeks or months. How is this diagnosed? This condition is diagnosed based on the results of: A physical exam. Tests of strength, reflexes, coordination, senses, manner of walking (gait), and facial and eye movements (neurological exam). Imaging tests, such as an MRI or a CT scan. How is this treated? Treatment for this condition depends on the type of hematoma and how severe it is. Treatment for acute hematoma may include: Emergency surgery to drain blood or remove a blood clot. Medicines that help the body get rid of excess fluids (diuretics). These may help to reduce pressure in the brain. Assisted breathing (ventilation). Treatment for chronic hematoma may include: Observation and bed rest at the hospital. Surgery. If you take blood thinners, you may need to stop taking them for a short time. You may also be given anti-seizure (anticonvulsant) medicine. Sometimes, no treatment is needed for chronic subdural hematoma. Follow these instructions at home: Activity Avoid situations where you could injure your head again, such as in competitive sports, downhill snow sports, and horseback riding. Do not do these activities until your health care provider approves. ? Wear protective gear, such as a helmet, when participating in activities such as biking or contact sports. Avoid too much visual stimulation while recovering. This means limiting how much you read and limiting your screen time on a smart phone, tablet, computer, or TV. Rest as told by your health care provider. Rest helps the brain heal. Try to avoid activities that cause physical or mental stress. Return to work or school as told by your health care provider. Do not lift anything that is heavier than 5 lb (2.3 kg), or the limit you are told, until your health care provider says that it is safe. Do not drive, ride a bike, or use heavy machinery until your health care provider approves. Always wear your seat belt when you are in a motor vehicle. Alcohol use Do not drink alcohol if your health care provider tells you not to drink. If you drink alcohol, limit how much you use to: ? 0 1 drink a day for women. ? 0 2 drinks a day for men. General instructions Monitor your symptoms, and ask people around you to do the same. Recovery from brain injuries varies. Talk with your health care provider about what to expect. Take dwqy-vkp-srdvzem and prescription medicines only as told by your health care provider. Do not take blood thinners or NSAIDs unless your health care provider approves. These include aspirin, ibuprofen, naproxen, and warfarin. Keep your home environment safe to reduce the risk of falling. Keep all follow-up visits as told by your health care provider. This is important. Where to find more information National [place] of Neurological Disorders and Stroke: www.ninds.nih.gov [place] Academy of Neurology (AAN): www.aan.com Brain Injury Association of [place]: www.biausa.org Get help right away if you: Are taking blood thinners and you fall or you experience minor trauma to the head. If you take any blood thinners, even a very small injury can cause a subdural hematoma. Have a bleeding disorder and you fall or you experience minor trauma to the head. Develop any of the following symptoms after a head injury: ? Clear fluid draining from your nose or ears. ? Nausea or vomiting. ? Changes in speech or trouble understanding what people say. ? Seizures. ? Drowsiness or a decrease in alertness. ? Double vision. ? Numbness or inability to move (paralysis) in any part of your body. ? Difficulty walking or poor coordination. ? Difficulty thinking. ? Confusion or forgetfulness. ? Personality changes. ? Irrational or aggressive behavior. These symptoms may represent a serious problem that is an emergency. Do not wait to see if the symptoms will go away. Get medical help right away. Call your local emergency services (911 in the [place] Do not drive yourself to the hospital. Summary A subdural hematoma is a collection of blood between the brain and its outer covering (dura). Treatment for this condition depends on what type of subdural hematoma you have and how severe it is. Symptoms can vary from mild to severe to life-threatening. Monitor your symptoms, and ask others around you to do the same. This information is not intended to replace advice given to you by your health care provider. Make sure you discuss any questions you have with your health care provider. Document Released: 05/08/2005 Document Revised: 05/22/2019 Document Reviewed: 05/22/2019 [employer] Patient Education 2020 [employer] Fall Prevention in the Home, Adult Falls can cause injuries and can affect people from all age groups. There are many simple things that you can do to make your home safe and to help prevent falls. Ask for help when making these changes, if needed. What actions can I take to prevent falls? General instructions Use good lighting in all rooms. Replace any light bulbs that burn out. Turn on lights if it is dark. Use night-lights. Place frequently used items in ivcp-qb-legcu places. Lower the shelves around your home if necessary. Set up furniture so that there are clear paths around it. Avoid moving your furniture around. Remove throw rugs and other tripping hazards from the floor. Avoid walking on wet floors. Fix any uneven floor surfaces. Add color or contrast paint or tape to grab bars and handrails in your home. Place contrasting color strips on the first and last steps of stairways. When you use a stepladder, make sure that it is completely opened and that the sides are firmly locked. Have someone hold the ladder while you are using it. Do not climb a closed stepladder. Be aware of any and all pets. What can I do in the bathroom? Keep the floor dry. Immediately clean up any water that spills onto the floor. Remove soap buildup in the tub or shower on a regular basis. Use non-skid mats or decals on the floor of the tub or shower. Attach bath mats securely with double-sided, non-slip rug tape. If you need to sit down while you are in the shower, use a plastic, non-slip stool. Install grab bars by the toilet and in the tub and shower. Do not use towel bars as grab bars. What can I do in the bedroom? Make sure that a bedside light is easy to reach. Do not use oversized bedding that drapes onto the floor. Have a firm chair that has side arms to use for getting dressed. What can I do in the kitchen? Clean up any spills right away. If you need to reach for something above you, use a sturdy step stool that has a grab bar. Keep electrical cables out of the way. Do not use floor montserratian or wax that makes floors slippery. If you must use wax, make sure that it is non-skid floor wax. What can I do in the stairways? Do not leave any items on the stairs. Make sure that you have a light switch at the top of the stairs and the bottom of the stairs. Have them installed if you do not have them. Make sure that there are handrails on both sides of the stairs. Fix handrails that are broken or loose. Make sure that handrails are as long as the stairways. Install non-slip stair treads on all stairs in your home. Avoid having throw rugs at the top or bottom of stairways, or secure the rugs with carpet tape to prevent them from moving. Choose a carpet design that does not hide the edge of steps on the stairway. Check any carpeting to make sure that it is firmly attached to the stairs. Fix any carpet that is loose or worn. What can I do on the outside of my home? Use bright outdoor lighting. Regularly repair the edges of walkways and driveways and fix any cracks. Remove high doorway thresholds. Trim any shrubbery on the main path into your home. Regularly check that handrails are securely fastened and in good repair. Both sides of any steps should have handrails. Install guardrails along the edges of any raised decks or porches. Clear walkways of debris and clutter, including tools and rocks. Have leaves, snow, and ice cleared regularly. Use sand or salt on walkways during winter months. In the garage, clean up any spills right away, including grease or oil spills. What other actions can I take? Wear closed-toe shoes that fit well and support your feet. Wear shoes that have rubber soles or lowheels. Use mobility aids as needed, such as canes, walkers, scooters, and crutches. Review your medicines with your health care provider. Some medicines can cause dizziness or changesin blood pressure, which increase your risk of falling. Talk with your health care provider about other ways that you can decrease your risk of falls. Thismay include working with a physical therapist or field sales trainer to improve your strength, balance, and endurance. Where to find more information Centers for Disease Control and PreventionSONIA: https://www.cdc.gov National [place] on Aging: https://km9pwod.saira.nih.gov Contact a health care provider if: You are afraid of falling at home. You feel weak, drowsy, or dizzy at home. You fall at home. Summary There are many simple things that you can do to make your home safe and to help prevent falls. Ways to make your home safe include removing tripping hazards and installing grab bars in the bathroom. Ask for help when making these changes in your home. This information is not intended to replace advice given to you by your health care provider. Make sure you discuss any questions you have with your health care provider. Document Released: 06/11/2003 Document Revised: 06/03/2018 Document Reviewed: 02/03/2018 [employer] Patient Education 2020 [employer] Chronic Obstructive Pulmonary Disease Chronic obstructive pulmonary disease (COPD) is a common lung problem. In COPD, the flow of air from the lungs is limited. The way your lungs work will probably never return to normal, but there are things you can do to improve you lungs and make yourself feel better. HOME CARE Take all medicines as told by your doctor. Only take tnqy-zmr-hayafwx or prescription medicines as told by your doctor. Avoid medicines or cough syrups that dry up your airway (such as antihistamines) and do not allow you to get rid of thick spit. You do not need to avoid them if told differently by your doctor. If you smoke, stop. Smoking makes the problem worse. Avoid being around things that make your breathing worse (like smoke, chemicals, and fumes). Use oxygen therapy and therapy to help improve your lungs (pulmonary rehabilitation) if told by your doctor. If you need home oxygen therapy, ask your doctor if you should buy a tool to measure your oxygen level (oximeter). Avoid people who have a sickness you can catch (contagious). Avoid going outside when it is very hot, cold, or humid. Eat healthy foods. Eat smaller meals more often. Rest before meals. Stay active, but remember to also rest. Make sure to get all the shots (vaccines) your doctor recommends. Ask your doctor if you need a pneumonia shot. Learn and use tips on how to relax. Learn and use tips on how to control your breathing as told by your doctor. Try: ? Breathing in (inhaling) through your nose for 1 second. Then, pucker your lips and breath out (exhale) through your lips for 2 seconds. ? Putting one hand on your belly (abdomen). Breathe in slowly through your nose for 1 second. Your hand on your belly should move out. Pucker your lips and breathe out slowly through your lips. Your hand on your belly should move in as you breathe out. Learn and use controlled coughing to clear thick spit from your lungs. 1. Lean your head a little forward. 2. Breathe in deeply. 3. Try to hold your breath for 3 seconds. 4. Keep your mouth slightly open while coughing 2 times. 5. Spit any thick spit out into a tissue. 6. Rest and do the steps again 1 or 2 times as needed. GET HELP IF: You cough up more thick spit than usual. There is a change in the color or thickness of the spit. It is harder to breathe than usual. Your breathing is faster than usual. GET HELP RIGHT AWAY IF: You have shortness of breath while resting. You have shortness of breath that stops you from: ? Being able to talk. ? Doing normal activities. You chest hurts for longer than 5 minutes. Your skin color is more blue than usual. Your pulse oximeter shows that you have low oxygen for longer than 5 minutes. MAKE SURE YOU: Understand these instructions. Will watch your condition. Will get help right away if you are not doing well or get worse. Document Released: 12/07/2008 Document Revised: 04/11/2014 Document Reviewed: 02/15/2014 ExitCare Patient Information 2015 [employer]. This information is not intended to replace advicegiven to you by your health care provider. Make sure you discuss any questions you have with your health care provider. Additional Information VACCINATE! IT SAVES LIVES! Members of the community who have not yet received the COVID-19 vaccine and would like to receive it can visit one of [facility] vaccine clinics. There are many vaccine clinic locations within the [facility]. For locations and available times, please visit [email or web address] It is important to note that some COVID mobile vaccine clinics are held outdoors and may be canceled in rainy or stormy conditions. To learn more about pediatric vaccinations (ages 5-11), we invite you to visit the [facility] webpage. [email or web address] learn more about the COVID-19 vaccine, we invite you to visit the [employer] website for a list of frequently asked questions. [email or web address] [facility] Patient Portal Access Instructions: Stay connected with your healthcare team and access your personal medical information anytime with the [facility] Patient Portal.If you would like a full copy of your medical records, please contact the [facility] Medical Records Department, Wednesday through Wednesday between 8a.m. and 4:30p.m. Please follow the directions below to access the portal: 1.Access the email account you provided upon registration to the hospital.2.Look for an invitation email from [facility].3.Open the email and access the invitation link: Accept Invitation to [facility].Fill in the required smith to create your account. Sign into [email or web address] with your username and password that you created in the above steps to stay up to date. You can then view a summary of results, a summary of your visits, and the ability to download your summaries to your computer or send the information securely to a physician. Remember that your healthcare information is confidential, so carefully consider who you will allow to register on the [facility] Patient Portal for access to your information. You can also access the [facility] Patient Portal on the [employer] bacilio. Simply click on Health Records under [email or web address].[email or web address] and then click on the [employer] logo. HOW TO SAFELY DISPOSE OF PRESCRIPTION MEDICATIONS Please use one of the following methods to safely dispose of your unused medications. 1.Use a drug disposal kit: the drug disposal pouch allows you to safely discard your old and unuseddrugs. Ask your nurse to give you one when you are discharged.2.Visit a local take-back location: Many local pharmacies and police departments have programs that collect old and unwanted prescriptiondrugs. Call your local pharmacy or go to http://Tesaris.Mydish/3P2Vy5t to find one close to you.3.Make use of household items: Use cat litter or old coffee grounds to dispose medications if other options arenot available. Mix your drugs with these household products, seal them in an airtight container andthrow it into the garbage. Call [facility]: [phone] to be sure your drugs can be disposed of in this way. Some medicines may require a different approach.4.Never flush your medications down the toilet. IF YOU HAVE BEEN PRESCRIBED AN OPIOID FOR PAIN If you have been prescribed an opioid (such as hydrocodone, oxycodone or morphine), it is critical to understand the possible side effects and risks of opioid pain medications. Even when taken as directed, opioids can have several side effects including: Tolerance, meaning you might need to take more of a medication for the same pain relief. Nausea, vomiting and/or constipation. Sleepiness, dizziness, dry mouth, confusion, depression or itching. Physical dependence, meaning you have withdrawal symptoms when a medication is stopped, can develop within a few days. KNOW YOUR RESPONSIBILITIES It is important to know exactly how much and how often to take the opioid pain medications you are prescribed. Never take opioids in higher amounts or more often than prescribed. Do not combine opioids with alcohol or other drugs that cause drowsiness, such as benzodiazepines, also known as benzos, including diazepam and alprazolam, muscle relaxants or sleep aids. Never sell or share prescription opioids. This is illegal. Store opioids in a secure place and out of reach of others (including children, family, friends and visitors). The last page of this document has been signed and retained as a CHART COPY. Signatures Patient Education Materials Cranioplasty, Care After Subdural Hematoma Fall Prevention in the Home, Adult Chronic Obstructive Pulmonary Disease, Heza-al-Rmba Medication Leaflets My discharge plan and instructions have been reviewed and explained to me and I,YADIRA LUIZA Brown understand my current condition and have read and understand these discharge instructions. I have received a written copy of the plan/instructions. If I have questions, I am aware that I should contact my doctor. Patient/Disbursing Agent Signature: Date/Time: Relationship to Patient: Witness Name/Signature: Date/Time: Shanti [id number] Nurse Progress note Nursing GG Entered On: 02/09/2022 9:08 EDT Performed On: 02/09/2022 9:08 EDT by Melina Israel LPN Nursing GG's OT GG Grid Eating : Independent Melina Israel LPN - 02/09/2022 9:08 EDT Digitally Signed by Melina Israel LPN on 02/09/2022 09:08 AM Shanti [id number] Physical medicine and rehab Discharge summary Date of Service 02/09/2022 Discharge Diagnosis 1. Subdural hematoma (S06.5X9A - ICD-10-CM) Ordered: oxyCODONE 5 mg oral tablet ( IMMEDIATE release); Dose : 5 mg = 1 tab(s), Oral, q6hr, PRN Pain, X 5 day(s), # 10 tab(s), 0 Refill(s), 02/14/22 8:46:00 EDT, Pharmacy: [facility], Subdural hematoma, 160, cm, 01/27/22 19:40:00 EDT, Height, 60 2. Anxiety (F41.9 - ICD-10-CM) 3. COPD (chronic obstructive pulmonary disease) (J44.9 - ICD-10-CM) 4. History of stroke (Z86.73 - ICD-10-CM) 5. History of cranioplasty (Z98.890 - ICD-10-CM) 6. Alcohol abuse (F10.10 - ICD-10-CM) 7. Anemia (D64.9 - ICD-10-CM) Encounter for surgical aftercare following surgery on the nervous system (Z48.811 - ICD-10-CM) Encounter for surgical aftercare following surgery on the nervous system (Z48.811 - ICD-10-CM) Traumatic subdural hemorrhage with loss of consciousness of unspecified duration, subsequent encounter (S06.5X9D - ICD-10-CM) Anxiety disorder, unspecified (F41.9 - ICD-10-CM) Alcohol abuse, uncomplicated (F10.10 - ICD-10-CM) Chronic obstructive pulmonary disease, unspecified (J44.9 - ICD-10-CM) Anemia, unspecified (D64.9 - ICD-10-CM) Other malaise (R53.81 - ICD-10-CM) Weakness (R53.1 - ICD-10-CM) Facial weakness (R29.810 - ICD-10-CM) Unspecified abnormalities of gait and mobility (R26.9 - ICD-10-CM) Other symptoms and signs involving cognitive functions and awareness (R41.89 - ICD-10-CM) Personal history of transient ischemic attack (TIA), and cerebral infarction without residual deficits (Z86.73 - ICD-10-CM) Dependence on supplemental oxygen (Z99.81 - ICD-10-CM) Need for assistance with personal care (Z74.1 - ICD-10-CM) Family history of ischemic heart disease and other diseases of the circulatory system (Z82.49 - ICD-10-CM) Other fdc (current) drug therapy (Z79.899 - ICD-10-CM) Additional Orders: Ordered: Ambien 5 mg oral tablet,Dose : 5 mg = 1 tab(s), Oral, qHS, PRN Sleep, X 7 day(s), # 7 tab(s), 0 Refill(s), 02/16/22 8:48:00 EDT, Pharmacy: [facility], 160, cm, 01/27/22 19:40:00 EDT, Height, 60 Ordered: Artificial Tears,Dose = 2 drop(s), Eyes, both, BID, PRN Dry eyes, 0 Refill(s) Discontinued: Breztri Aerosphere inhalation aerosol,See Instructions, 1 puff 2 times daily, 0 Refill(s) Ordered: Colace 100 mg oral capsule,Dose : 100 mg = 1 cap(s), Oral, BID, PRN Constipation, 0 Refill(s) Discontinued: DULoxetine 60 mg oral delayed release capsule,Dose : 60 mg = 1 cap(s), Oral, qDay, 0 Refill(s) Ordered: DULoxetine 60 mg oral delayed release capsule,Dose : 60 mg = 1 cap(s), Oral, qDay, # 30 cap(s), 0 Refill(s), Pharmacy: [facility], 160, cm, 01/27/22 19:40:00 EDT, Height Ordered: Maalox,Oral, q6h, PRN Indigestion, 0 Refill(s) Ordered: Milk of Magnesia,Dose = 30 mL, Oral, qHS, PRN Constipation, 0 Refill(s) Ordered: MiraLax oral powder for reconstitution,Oral, qDay, PRN Constipation, 0 Refill(s) Ordered: Neosporin topical ointment,Apply 1 bacilio, Topical, BID, 0 Refill(s), Ointment, 60 Ordered: Protonix 40 mg oral enteric coated tablet,Dose : 40 mg = 1 tab(s), Oral, BIDAC, # 60 tab(s), 0 Refill(s), Pharmacy: [facility], 160, cm, 01/27/22 19:40:00 EDT, Height Discontinued: QUEtiapine 25 mg oral tablet,Dose : 25 mg = 1 tab(s), Oral, qHS, 0 Refill(s) Ordered: Tums 500 mg oral tablet, chewable,Dose : 500 mg = 1 tab(s), Chewed, QID, PRN Heartburn, 0 Refill(s) Discontinued: albuterol MDI (90 mcg/inh) CFC free inhalation aerosol,2 puff(s), Inhalation, QID, PRN Shortness of breath (SOB), # 18 gram(s), 0 Refill(s) Ordered: albuterol MDI (90 mcg/inh) CFC free inhalation aerosol,2 puff(s), Inhalation, QID, PRN Shortness of breath (SOB), # 6.7 gram(s), 0 Refill(s), Pharmacy: [facility], 160, cm, 01/27/22 19:40:00 EDT, Height Discontinued: bisacodyl 10 mg rectal suppository,Dose : 10 mg = 1 supp, Rectal, qDay, PRN as neededfor constipation, # 10 supp, 0 Refill(s) Ordered: bisacodyl 10 mg rectal suppository,Dose : 10 mg = 1 supp, Rectal, qDay, PRN Constipation, 0 Refill(s) Discontinued: escitalopram 10 mg oral tablet,Dose : 10 mg = 1 tab(s), Oral, qDay, 0 Refill(s) Ordered: escitalopram 10 mg oral tablet,Dose : 10 mg = 1 tab(s), Oral, qDay, # 30 tab(s), 0 Refill(s), Pharmacy: [facility], 160, cm, 01/27/22 19:40:00 EDT, Height Ordered: hydrOXYzine hydrochloride 25 mg oral tablet,Dose : 50 mg = 2 tab(s), Oral, q6h, PRN Anxiety, X 30 day(s), # 30 tab(s), 0 Refill(s), 03/11/22 8:46:00 EDT, Pharmacy: [facility], 160, cm, 01/27/22 19:40:00 EDT, Height Discontinued: hydrOXYzine hydrochloride 50 mg oral tablet,Dose : 50 mg = 1 tab(s), Oral, q6h, PRN as needed for anxiety, 0 Refill(s) Ordered: melatonin 3 mg oral tablet,Dose : 3 mg = 1 tab(s), Oral, qHS, PRN Sleep, 0 Refill(s) Discontinued: oxyCODONE 5 mg oral tablet ( IMMEDIATE release ),Dose : 5 mg = 1 tab(s), Oral, q6hr, PRN as needed for pain, 0 Refill(s), 63.912 Discontinued: senna (sennosides) 8.6 mg oral tablet,Dose : 8.6 mg = 1 tab(s), Oral, qDay, 0 Refill(s) Ordered: senna (sennosides) 8.6 mg oral tablet,Dose : 8.6 mg = 1 tab(s), Oral, qDay, 0 Refill(s) End of Orders Hospital Course 66-year-old female seen today discharge evaluation. Initially admitted to acute rehabilitation 01/27/2022 from [facility]. She will visit status post cranioplasty on January 21. She had received a right hemicraniectomy on January 08 for traumatic subdural hematoma. She was admitted and managed for history of T12 compression fracture Acute respiratory failure, COPD, hypertension, history of DVT, alcohol abuse Takotsubo cardiomyopathy, remote stroke, anxiety, congestive heart failure gait disturbance and osteoarthritis Patient admitted for acute rehab with physical occupational and speech-language therapy services. Gait and mobility. ADLs self-care and strengthening. Rehab nursing social diet attrition and medical management of comorbidities. She was on DuoNeb and budesonide aerosols Venelex to her heels. Cymbalta. She presented on Seroquel 25 mg and was weaned off of it during her rehab stay. Took senna daily.Protonix daily. Lexapro 10 mg daily. She took urine Tylenol or oxycodone per for pain Vistaril for anxiety albuterol albuterol for aerosol for dyspnea. She had DANY hose and SCDs on admission she was weightbearing as tolerated had a waffle cushion in her wheelchair. Sutures were were to be removed in 10 to 14 days but healed very slowly with significant residual eschar and erythema so they were left in pending primary care and neurosurgery follow-up. She incentive spirometer 4 times daily. Regular diet speech for cognition. Dr. Phillips for cognition mood and anxiety. Wound consult was placed. Bilateral duplex ultrasound was negative. She requested as needed Ambien for insomnia. Protonix daily. She was weighed 3 times a week. Her antidepressantLexapro was increased to 10 mg daily. Neosporin and dry dressing was added to her posterior head inc ision. Passport application was started education with brother and spouse were ongoing as patient will require ongoing supervision as well as home oxygen therapy. Goals met during hospital stay. Barriers include persistent neurocognitive deficits. Admit functional status was 50% assist. Discharge functional status distant supervision. Rehab nursing needs included cardiopulmonary monitoring, pain management, wound care, bowel bladderprogram, Patient was discussed weekly team staff with regards to goals plan of care and length of stay. Patient and family education were ongoing during hospital stay. Skin was inspected on a regular basis. Allergies tetanus toxoid (Hives, Swelling) Consults Consult to Physician - Ordered -- 01/27/22 19:48:00 EDT, JEET SANDY DO, Routine, manage medically Consult to Physician - Ordered -- 01/28/22 11:13:00 EDT, HINA TURCIOS, Routine, Consult to wound team: surgical sites Consult to Physician - Ordered -- 01/28/22 11:17:00 EDT, LAI PHILLIPS PhD, Routine, Cognitive Impairment Consult to Physician - Ordered -- 01/29/22 10:14:00 EDT, LAI PHILLIPS PhD, Routine, Seroquel dosing. Wants weaned to ambien Physical Exam Vitals and Measurements T: 36.6 C (Temporal Artery) TMIN: 36.6 C (Temporal Artery) TMAX: 36.7 C (Oral) HR: 97 RR: 16 BP: 111/54 SpO2: 97% Weight Dosing Weight: 60 kg (02/07/22) Dosing Weight: 59.1 kg (02/05/22) General Appearance: Alert and oriented 3 no apparent distress Head: Normocephalic no evidence of trauma EENT: Pupils equal and reactive to light and accommodation no erythema. Ears with no external lesions or discharge. Nose clear nares patent no discharge. Throat normal healthy dentition no redness orerythema. Neck: Trachea midline. No lymphatic adenopathy Cardiac: Regular rate and rhythm, no rubs or murmurs Lungs: Clear to auscultation, no adventitious sounds, good aeration Abdomen: Soft nontender no organomegaly or rebound positive bowel sounds Musculoskeletal: Intact range of motion no erythema no polyarthritic changes Extremities: No edema. Negative Homans sign Neurological: Mild left hemiparesis. Moderate neurocognitive deficits. Skin: Intact without rashes or erythema. Right craniotomy incision intact with sutures in place andeschar. Psychiatric: Mood good. No anxiety depression Code Status Code Status - Ordered -- 01/27/22 19:48:00 EDT, Full Code, Constant Order Admission Date 01/27/2022 Discharge Date 02/09/2022 Medications New Prescription Al hydroxide/Mg hydroxide/simethicone (Maalox)by mouth every 6 hours as needed Indigestion. bacitracin/neomycin/polymyxin B topical (Neosporin topical ointment)1 application Topical two (2) times a day. calcium carbonate (Tums 500 mg oral tablet, chewable)1 tab(s) Chewed four (4) times a day as neededHeartburn. docusate (Colace 100 mg oral capsule)1 cap by mouth two (2) times a day as needed Constipation. magnesium hydroxide (Milk of Magnesia)30 Milliliter by mouth daily at bedtime as needed Constipation. melatonin (melatonin 3 mg oral tablet)1 tab(s) by mouth daily at bedtime as needed Sleep. ocular lubricant (Artificial Tears)2 Drops Both eyes two (2) times a day as needed Dry eyes. pantoprazole (Protonix 40 mg oral enteric coated tablet)1 tab(s) by mouth two (2) times daily before meals. Refills: 0. polyethylene glycol 3350 (MiraLax oral powder for reconstitution)by mouth once a day as needed Constipation. Changed DULoxetine (DULoxetine 60 mg oral delayed release capsule)1 cap by mouth once a day. Refills: 0. albuterol (albuterol MDI (90 mcg/inh) CFC free inhalation aerosol)2 puff(s) by inhalation four (4) times a day as needed Shortness of breath (SOB). Refills: 0. bisacodyl (bisacodyl 10 mg rectal suppository)1 suppository(ies) in the rectum once a day as neededConstipation. escitalopram (escitalopram 10 mg oral tablet)1 tab(s) by mouth once a day. Refills: 0. hydrOXYzine (hydrOXYzine hydrochloride 25 mg oral tablet)2 tab(s) by mouth every 6 hours as needed Anxiety for 30 Days. Refills: 0. oxyCODONE (oxyCODONE 5 mg oral tablet ( IMMEDIATE release ))1 tab(s) by mouth every 6 hours as needed Pain for 5 Days. Refills: 0. senna (senna (sennosides) 8.6 mg oral tablet)1 tab(s) by mouth once a day. zolpidem (Ambien 5 mg oral tablet)1 tab(s) by mouth daily at bedtime as needed Sleep for 7 Days. Refills: 0. Unchanged fluticasone/umeclidinium/vilanterol (Trelegy Ellipta 100 mcg-62.5 mcg-25 mcg/inh inhalation powder)1 puff(s) by inhalation once a day. at the same time every day. Following administration, rinse mouth with water after use (do not swallow).. Discontinued budesonide/formoterol/glycopyrrolate (Breztri Aerosphere inhalation aerosol)1 puff 2 times daily. clonazePAM (clonazePAM 1 mg oral tablet)1 tab(s) by mouth two (2) times a day. QUEtiapine (QUEtiapine 25 mg oral tablet)1 tab(s) by mouth daily at bedtime. Follow Up Follow Up with MARYAM FRANCO MD When 02/17/2022 03:40 PM EDT Why: Take Discharge Instructions to Dr Visit Where: [address] [place] [address]- Follow Up with SEVERO JURADO MD When Where: [address] [place] [address]- [phone] Follow Up Appointments No qualifying data available. Follow Up Labs/Studies Discharge Labs No Follow-up Labs Discharge Studies No Follow-up Studies Discharge Diet No qualifying data available. Discharge Activity No qualifying data available. Condition on Discharge Stable Discharge Disposition Home with spouse Information Provided To Patient and family Time Spent Greater than 35 minutes Digitally Signed by ANALY LARSON DO on 02/09/2022 09:01 AM Shanti [id number] Nurse Progress note Nursing GG Entered On: 02/09/2022 1:56 EDT Performed On: 02/09/2022 1:56 EDT by Mildred Molina RN Nursing GG's OT GG Grid Eating : Not Completed Oral Hygiene : Not Completed Toilet Hygiene : Not Completed Toilet Transfer : Not Completed Bathing : Not Completed Upper Body Dressing : Not Completed Lower Body Dressing : Not Completed Putting on/taking off footwear : Not Completed Roll left and right : Not Completed Sit to lying : Not Completed Lying to sitting on side of bed : Not Completed Sit to stand : Not Completed Chair/opd-am-bkhjp transfer : Not Completed Walk 10 ft : Not Completed Walk 50 ft with 2 turns : Not Completed Walk 150 ft : Not Completed Picking up object : Not Completed Mildred Molina RN - 02/09/2022 1:56 EDT Digitally Signed by Mildred Molina RN on 02/09/2022 01:56 AM Shanti [id number] Nurse Progress note Nursing GG Entered On: 02/08/2022 13:34 EDT Performed On: 02/08/2022 13:34 EDT by FINESSE Hollis Nursing GG's OT GG Grid Eating : Independent Oral Hygiene : Independent Toilet Hygiene : Partial/Moderate Toilet Transfer : Partial/Moderate FINESSE Hollis - 02/08/2022 13:34 EDT Digitally Signed by FINESSE Hollis on 02/08/2022 01:34 PM Shanti [id number] Nurse Progress note Nursing GG Entered On: 02/08/2022 1:50 EDT Performed On: 02/08/2022 1:49 EDT by Mildred Molina RN Nursing GG's OT GG Grid Eating : Not Completed Oral Hygiene : Not Completed Toilet Hygiene : Not Completed Toilet Transfer : Not Completed Bathing : Not Completed Upper Body Dressing : Not Completed Lower Body Dressing : Not Completed Putting on/taking off footwear : Not Completed Roll left and right : Not Completed Sit to lying : Not Completed Lying to sitting on side of bed : Not Completed Sit to stand : Not Completed Chair/kgu-qu-emjzp transfer : Not Completed Walk 10 ft : Not Completed Walk 50 ft with 2 turns : Not Completed Walk 150 ft : Not Completed Picking up object : Not Completed Mildred Molina RN - 02/08/2022 1:49 EDT Digitally Signed by Mildred Molina RN on 02/08/2022 01:49 AM Shanti [id number] Nurse Progress note Nursing GG Entered On: 02/07/2022 15:06 EDT Performed On: 02/07/2022 15:06 EDT by Rosalva James RN Nursing GG's OT GG Grid Eating : Independent Rosalva James RN - 02/07/2022 15:06 EDT Digitally Signed by Rosalva James RN on 02/07/2022 03:06 PM Shanti [id number] Nurse Progress note Nursing GG Entered On: 02/07/2022 14:59 EDT Performed On: 02/07/2022 14:58 EDT by Rosalva James RN Nursing GG's OT GG Grid Eating : Independent Rosalva James RN - 02/07/2022 14:58 EDT Digitally Signed by Rosalva James RN on 02/07/2022 02:58 PM Shanti [id number] Nurse Progress note Nursing GG Entered On: 02/06/2022 12:22 EDT Performed On: 02/06/2022 12:21 EDT by Ofe Larios RN Nursing GG's OT GG Grid Eating : Independent Ofe Larios RN - 02/06/2022 12:21 EDT Digitally Signed by Ofe Larios RN on 02/06/2022 12:21 PM Shanti [id number] Physical medicine and rehab Progress note Date of Service 02/06/2022 Chief Complaint Subdural hematoma Subjective Patient is a 66 -year-old female seen today in follow-up. Case discussed in team staffing. Weekly rehab report is reviewed. Case discussed with family. All questions are answered. Plan is to continue acute rehab with PT OT and speech-language therapy services. Continue to work on gait training range of motion strengthening ADLs self-care speech-language and dysphagia therapy. Partial assist LE dressing. Supervision for eating toilet transfers and upper body dressing. Cues required Goal is for discharge home at a modified independent level with probable home care services. Plan discharge date 02/09/22 Barriers to discharge mild neurocognitive deficits For further details, please see electronic team staffing note Objective Vitals and Measurements T: 36.5 C (Temporal Artery) TMIN: 36.5 C (Temporal Artery) TMAX: 36.8 C (Oral) HR: 105 RR: 18 BP: 105/51 SpO2: 92% Intake and Output 7AM Yesterday to 7AM Today Intake and Output (Last 24 hours) Intake Output Total Summary Total Intake 0.00 Total Output 0.00 Fluid Balance 0.00 Physical Exam General Appearance: Alert and oriented 3 no apparent distress Head: Normocephalic no evidence of trauma EENT: Pupils equal and reactive to light and accommodation no erythema. Ears with no external lesions or discharge. Nose clear nares patent no discharge. Throat normal healthy dentition no redness or erythema. Neck: Trachea midline. No lymphatic adenopathy Cardiac: Regular rate and rhythm, no rubs or murmurs Lungs: Clear to auscultation, no adventitious sounds, good aeration Abdomen: Soft nontender no organomegaly or rebound positive bowel sounds Musculoskeletal: Intact range of motion no erythema no polyarthritic changes Extremities: No edema. Negative Homans sign Neurological: Cranial nerves II through XII grossly intact. Strength 4 out of 5. Sensation intact. Deep tendon reflexes 2 out of 4 Skin: Right craniotomy incision intact sutures in place. Scant erythema and eschar Psychiatric: Mood good. No anxiety depression Weight Dosing Weight: 59.1 kg (02/05/22) Dosing Weight: 61.4 kg (01/28/22) Medications Medications (25) Active Scheduled: (8) balsam Kateryna-castor oil topical 87 mg-788 mg/g oint 60g 1 bacilio, Topical, BID budesonide 0.25 mg/2 mL Susp UD 0.25 mg 2 mL, Inhalation, BIDRT duloxetine [address] capsule 60 mg 1 cap(s), Oral, qDay escitalopram 10 mg tablet 10 mg 1 tab(s), Oral, qDay ipratropium 0.02% (0.5mg/2.5mL) UD 0.5 mg 2.5 mL, Inhalation, BIDRT Misc communication order 1 EA, Miscellaneous, Daily pantoprazole 40 mg EC tablet 40 mg 1 tab(s), Oral, BIDAC senna 8.6 mg Tablet 8.6 mg 1 tab(s), Oral, qDay Continuous: (0) PRN: (17) acetaminophen 325 mg Tablet 650 mg 2 tab(s), Oral, q4h Al hydrox/Mg hydrox/simethicone 200-200-20 mg/5 mL Susp UD 30 mL, Oral, q6h albuterol 0.083% Soln UD (2.5mg/3 mL) 2.5 mg 3 mL, Inhalation, q4h bisacodyl 10 mg Suppository 10 mg 1 supp, Rectal, qDay calcium carbonate 500 mg Chewable 500 mg 1 tab(s), Chewed, QID dextrose 50% Solution Disp syringe 50 mL 12.5 gram(s) 25 mL, IV Push, AsDirected docusate sodium 100 mg Capsule 100 mg 1 cap(s), Oral, BID glucagon recombinant 1 mg 1 mg 1 mL, Intramuscular, AsDirected glucose 4 gm Chewable 16 gram(s) 4 tab(s), Chewed, AsDirected glycerin adult Suppository 1 supp, Rectal, Daily hydroxyzine hcl 25 mg tablet 50 mg 2 tab(s), Oral, q6h magnesium hydroxide 8% Suspension 30 mL UD 30 mL, Oral, qHS melatonin 3 mg tablet 3 mg 1 tab(s), Oral, qHS ocular lubricant preserved Soln 15 mL 2 drop(s), Eyes, both, BID oxycodone 5 mg tablet (immediate release) 5 mg 1 tab(s), Oral, q6hr polyethylene glycol 3350 - UD packet 17 gram(s) 15 mL, Oral, qDay zolpidem 5 mg tablet 5 mg 1 tab(s), Oral, qHS Lab Results No 36 Hour Lab Data EKG No qualifying data available. Assessment/Plan 1. Subdural hematoma Acute rehab PT OT and speech 2. Anxiety 3. COPD (chronic obstructive pulmonary disease) home O2 4. History of stroke 5. History of cranioplasty NS F/U 6. Alcohol abuse 7. Anemia Orders: Diet per Washcloth Folder neosporin and dressing to incision Time Spent 25 min Digitally Signed by ANALY LARSON DO on 02/06/2022 10:23 AM Shanti [id number] Nurse Progress note Nursing GG Entered On: 02/05/2022 16:35 EDT Performed On: 02/05/2022 16:35 EDT by Sandrine Bansal RN Nursing GG's OT GG Grid Eating : Independent Sit to stand : Partial/Moderate Chair/amq-zl-sdvlz transfer : Partial/Moderate Sandrine Bansal RN - 02/05/2022 16:35 EDT Digitally Signed by Sandrine Bansal RN on 02/05/2022 04:35 PM [place] [id number] Nurse Progress note Nursing GG Entered On: 02/05/2022 9:55 EDT Performed On: 02/05/2022 9:55 EDT by Sandrine Bansal RN Nursing GG's OT GG Grid Eating : Independent Oral Hygiene : Set up & Clean up Sandrine Bansal RN - 02/05/2022 9:55 EDT Digitally Signed by Sandrine Bansal RN on 02/05/2022 09:55 AM Shanti [id number] Physical medicine and rehab Progress note Rehab Note Chief Complaint: Seeing this patient for evaluation of therapy, subdural hematoma s/p craniotomy History of Present Illness: Seeing this patient for evaluation of therapy, subdural hematoma s/p craniotomy. Patient participates in acute inpatient rehabilitation with PT/OT/ST services. Patient hasa past medical history significant for CVA times 08/24/2017, heart attack, right-sided CVA, COPD home oxygen, hypertension, previous DVT right lower extremity, alcohol use and chronic compression fracture T12. 66-year-old female who presented to [facility] on 01/08 after being found down. Head CT demonstrated a large right acute subdural hematoma with midline shift, taken emergently for decompressive hemicraniotomy. Patient had replacement of bone flap and cranioplasty performed on 01/[address] Jurado. Discussed with nursing. Medications reviewed. Tentative discharge date 02/09. Patient sitting up in wheelchair, had ADL shower with therapy. Patient having family instruct this date 02/05. Patient alert and oriented, can be forgetful. Patient denies any uncontrolled pain or discomfort. Medications (25) Active Scheduled: (8) balsam Kateryna-castor oil topical 87 mg-788 mg/g oint 60g 1 bacilio, Topical, BID budesonide 0.25 mg/2 mL Susp UD 0.25 mg 2 mL, Inhalation, BIDRT duloxetine [address] capsule 60 mg 1 cap(s), Oral, qDay escitalopram 10 mg tablet 10 mg 1 tab(s), Oral, qDay ipratropium 0.02% (0.5mg/2.5mL) UD 0.5 mg 2.5 mL, Inhalation, BIDRT Misc communication order 1 EA, Miscellaneous, Daily pantoprazole 40 mg EC tablet 40 mg 1 tab(s), Oral, BIDAC senna 8.6 mg Tablet 8.6 mg 1 tab(s), Oral, qDay Continuous: (0) PRN: (17) acetaminophen 325 mg Tablet 650 mg 2 tab(s), Oral, q4h Al hydrox/Mg hydrox/simethicone 200-200-20 mg/5 mL Susp UD 30 mL, Oral, q6h albuterol 0.083% Soln UD (2.5mg/3 mL) 2.5 mg 3 mL, Inhalation, q4h bisacodyl 10 mg Suppository 10 mg 1 supp, Rectal, qDay calcium carbonate 500 mg Chewable 500 mg 1 tab(s), Chewed, QID dextrose 50% Solution Disp syringe 50 mL 12.5 gram(s) 25 mL, IV Push, AsDirected docusate sodium 100 mg Capsule 100 mg 1 cap(s), Oral, BID glucagon recombinant 1 mg 1 mg 1 mL, Intramuscular, AsDirected glucose 4 gm Chewable 16 gram(s) 4 tab(s), Chewed, AsDirected glycerin adult Suppository 1 supp, Rectal, Daily hydroxyzine hcl 25 mg tablet 50 mg 2 tab(s), Oral, q6h magnesium hydroxide 8% Suspension 30 mL UD 30 mL, Oral, qHS melatonin 3 mg tablet 3 mg 1 tab(s), Oral, qHS ocular lubricant preserved Soln 15 mL 2 drop(s), Eyes, both, BID oxycodone 5 mg tablet (immediate release) 5 mg 1 tab(s), Oral, q6hr polyethylene glycol 3350 - UD packet 17 gram(s) 15 mL, Oral, qDay zolpidem 5 mg tablet 5 mg 1 tab(s), Oral, qHS Social history: Social support: Lives with spouse Home set-up: Multilevel home, first-floor bedroom/bathroom Barriers to discharge: Time since onset, safety awareness, past medical history Review of Systems: General: Appetite is good Respiratory: Denies shortness of breath, denies cough Cardiovascular: Denies chest pain, denies palpitations Gastrointestinal: Abdomen soft, non tender, non distended. Bowel sounds x 4. Genitourinary: Denies suprapubic pain or tenderness, no dysuria Musculoskeletal: No uncontrolled pain. Left-sided weakness Psychiatric: No reported change in cognition Vitals Signs(Last 24 hrs)__Last Charted Minimum Maximum Heart Rate90(FEB 05 02:04)90(FEB 05 02:04)H 108(FEB 04 09:53) Resp Rate18(FEB 05 02:04)16(FEB 04 13:40)20(FEB 04 09:53) IVJ144(FEB 05 02:04)110(FEB 04 15:57)120(FEB 05 02:04) DBP68(FEB 05 02:04)L 56(FEB 04 15:57)68(FEB 05 02:04) Physical Exam: General: No acute distress. Respiratory: Lungs are clear. Nasal cannula in place Cardiovascular: Regular rate and rhythm Gastrointestinal: Abdomen is soft nontender nondistended. Bowel sounds normal x4. Arterial: 1/4 distal pulses bilateral lower extremities Edema: No edema bilateral lower extremities. No calf tenderness. Musculoskeletal: 4/5 left upper extremity strength. Left pronator drift 4+/5 right upper extremity strength 4+/5 bilateral lower extremity strength Decreasing grasp bilaterally Decreased shoulder range of motion bilaterally Spinal Curvatures: increased thoracic kyphosis. No spinal or paraspinal tenderness Polyarthritis Weight bearing status/transfers/ADLs: Weight bearing as tolerated. Ambulated 60 feet, gait belt andstandard cane. Supervision/touch assist sit to lying. Partial/moderate assist walk 10 feet. Supervision/touch assist lying to sitting on side of bed. Supervision/touch assist sit to stand. Supervision/touch assist chair/bed to chair transfer. Supervision/touch assist oral hygiene. Supervision/touchassist toilet hygiene. Supervision/touch assist sit to stand. Supervision/touch assist toilet transfer. Supervision/touch assist putting on/taking off footwear. Skin: Craniotomy incision eschar, no erythema, sutures in place, well approximated. Neurological: Sensation intact. Bilateral upper extremity reflexes 1/4. Bilateral lower extremity reflexes 2/4 Psychiatric: Alert, pleasant, and cooperative. Assessment: Subdural hematoma status post right cranioplasty with mild left hemiparesis anxiety anddepression and neurocognitive deficits. History of COPD on oxygen and alcohol abuse. Plan: Continue acute rehab physical occupational and speech-language therapy. Gait and mobility. ADL self-care and strengthening. Aerosol adjustment per medical service. Plan remove sutures tomorrow.Neurosurgery follow-up. Family instruction. Goal is for discharge home with supervision of spouse and her her brother with home care services estimated discharge date 02/09/2022 Risks/benefits of meds, treatments considered. Therapy notes reviewed. Discussed with staff. PMH/SH reviewed and unchanged Note: This dictation was created with assistance of voice recognition software. Phonic and/or minorgrammatical errors may exist. Lucrecia Sepulveda RN, am scribing for, and in the presence of Dr. Marsha JONES. IDr. Marsha DO , personally performed the services described in this documentation, as described by Lucrecia Aguilera RN in my presence and it is both accurate and complete. Digitally Signed by ANALY LARSON DO on 02/06/2022 07:52 AM Shanti [id number] Nurse Progress note Nursing GG Entered On: 02/05/2022 2:21 EDT Performed On: 02/05/2022 2:21 EDT by Vianca Wynn RN Nursing GG's OT GG Grid Eating : Not Completed Oral Hygiene : Not Completed Toilet Hygiene : Not Completed Toilet Transfer : Not Completed Bathing : Not Completed Upper Body Dressing : Not Completed Lower Body Dressing : Not Completed Putting on/taking off footwear : Not Completed Roll left and right : Not Completed Sit to lying : Not Completed Lying to sitting on side of bed : Not Completed Sit to stand : Not Completed Chair/ukj-rd-hfkow transfer : Not Completed Walk 10 ft : Not Completed Walk 50 ft with 2 turns : Not Completed Walk 150 ft : Not Completed Picking up object : Not Completed Vianca Wynn RN - 02/05/2022 2:21 EDT Digitally Signed by Vianca Wynn RN on 02/05/2022 02:21 AM [id number] Nurse Progress note RECEIVED PHONE MESSAGE FROM FIDEL GU QA ARCHITECT WITH NEXT REVIEW DATE- 02/09. Digitally Signed by FINESSE Burden on 02/04/2022 08:54 AM [facility] [id number] Physical medicine and rehab Progress note Rehab Note Chief Complaint: Seeing this patient for evaluation of therapy, subdural hematoma s/p craniotomy History of Present Illness: Seeing this patient for evaluation of therapy, subdural hematoma s/p craniotomy. Patient participates in acute inpatient rehabilitation with PT/OT/ST services. Patient hasa past medical history significant for CVA times 08/24/2017, heart attack, right-sided CVA, COPD home oxygen, hypertension, previous DVT right lower extremity, alcohol use and chronic compression fracture T12. 66-year-old female who presented to [facility] on 01/08 after being found down. Head CT demonstrated a large right acute subdural hematoma with midline shift, taken emergently for decompressive hemicraniotomy. Patient had replacement of bone flap and cranioplasty performed on 01/[address] Jurado. Discussed with nursing. Medications reviewed. Tentative discharge date 02/09. Patient sitting up in bathroom working with therapy on ADL grooming. Patient alert and oriented, can be forgetful. Patient does have alarms. Patient was to have sutures removed from craniotomy incision, provider discontinued order, will reevaluate at a later date. Initiated increase in Lexapro 10 mg daily, for anxiety and depression. Patient denies any uncontrolled pain or discomfort. Medications (25) Active Scheduled: (8) balsam Kateryna-castor oil topical 87 mg-788 mg/g oint 60g 1 bacilio, Topical, BID budesonide 0.25 mg/2 mL Susp UD 0.25 mg 2 mL, Inhalation, BIDRT duloxetine [address] capsule 60 mg 1 cap(s), Oral, qDay escitalopram 5 mg tablet 5 mg 1 tab(s), Oral, qDay ipratropium 0.02% (0.5mg/2.5mL) UD 0.5 mg 2.5 mL, Inhalation, BIDRT Misc communication order 1 EA, Miscellaneous, Daily pantoprazole 40 mg EC tablet 40 mg 1 tab(s), Oral, BIDAC senna 8.6 mg Tablet 8.6 mg 1 tab(s), Oral, qDay Continuous: (0) PRN: (17) acetaminophen 325 mg Tablet 650 mg 2 tab(s), Oral, q4h Al hydrox/Mg hydrox/simethicone 200-200-20 mg/5 mL Susp UD 30 mL, Oral, q6h albuterol 0.083% Soln UD (2.5mg/3 mL) 2.5 mg 3 mL, Inhalation, q4h bisacodyl 10 mg Suppository 10 mg 1 supp, Rectal, qDay calcium carbonate 500 mg Chewable 500 mg 1 tab(s), Chewed, QID dextrose 50% Solution Disp syringe 50 mL 12.5 gram(s) 25 mL, IV Push, AsDirected docusate sodium 100 mg Capsule 100 mg 1 cap(s), Oral, BID glucagon recombinant 1 mg 1 mg 1 mL, Intramuscular, AsDirected glucose 4 gm Chewable 16 gram(s) 4 tab(s), Chewed, AsDirected glycerin adult Suppository 1 supp, Rectal, Daily hydroxyzine hcl 25 mg tablet 50 mg 2 tab(s), Oral, q6h magnesium hydroxide 8% Suspension 30 mL UD 30 mL, Oral, qHS melatonin 3 mg tablet 3 mg 1 tab(s), Oral, qHS ocular lubricant preserved Soln 15 mL 2 drop(s), Eyes, both, BID oxycodone 5 mg tablet (immediate release) 5 mg 1 tab(s), Oral, q6hr polyethylene glycol 3350 - UD packet 17 gram(s) 15 mL, Oral, qDay zolpidem 5 mg tablet 5 mg 1 tab(s), Oral, qHS Social history: Social support: Lives with spouse Home set-up: Multilevel home, first-floor bedroom/bathroom Barriers to discharge: Time since onset, safety awareness, past medical history Review of Systems: General: Appetite is good Respiratory: Denies shortness of breath, denies cough Cardiovascular: Denies chest pain, denies palpitations Gastrointestinal: Abdomen soft, non tender, non distended. Bowel sounds x 4. Genitourinary: Denies suprapubic pain or tenderness, no dysuria Musculoskeletal: No uncontrolled pain. Left-sided weakness Psychiatric: No reported change in cognition Vitals Signs(Last 24 hrs)__Last Charted Minimum Maximum Temp36.6(FEB 03 09:26)36.6(FEB 03:)36.6(FEB 03:) Resp Rate20(FEB 03 16:42)18(FEB 03 09:26)20(FEB 03 16:42) RSD375(FEB 03 16:42)91(FEB 03 09:)104(FEB 03 16:42) DBPL 56(FEB 03 16:42)L 56(FEB 03 16:42)60(FEB 03 09:) Physical Exam: General: No acute distress. Respiratory: Lungs are clear. Nasal cannula in place Cardiovascular: Regular rate and rhythm Gastrointestinal: Abdomen is soft nontender nondistended. Bowel sounds normal x4. Arterial: 1/4 distal pulses bilateral lower extremities Edema: No edema bilateral lower extremities. No calf tenderness. Musculoskeletal: 4/5 left upper extremity strength. Left pronator drift 4+/5 right upper extremity strength 4+/5 bilateral lower extremity strength Decreasing grasp bilaterally Decreased shoulder range of motion bilaterally Spinal Curvatures: increased thoracic kyphosis. No spinal or paraspinal tenderness Polyarthritis Weight bearing status/transfers/ADLs: Weight bearing as tolerated. Ambulated 60 feet, gait belt andstandard cane. Supervision/touch assist sit to lying. Partial/moderate assist walk 10 feet. Supervision/touch assist lying to sitting on side of bed. Supervision/touch assist sit to stand. Supervision/touch assist chair/bed to chair transfer. Supervision/touch assist oral hygiene. Supervision/touchassist toilet hygiene. Supervision/touch assist sit to stand. Supervision/touch assist toilet transfer. Supervision/touch assist putting on/taking off footwear. Skin: Craniotomy incision eschar, no erythema, sutures in place, well approximated. Neurological: Sensation intact. Bilateral upper extremity reflexes 1/4. Bilateral lower extremity reflexes 2/4. Mucosa dry. Psychiatric: Alert, pleasant, and cooperative. Assessment: Subdural hematoma status post craniectomy and right cranioplasty right. Anxiety depression. Anemia. COPD. Plan: Continue acute rehab physical occupational and speech-language therapy. Gait mobility ADL self-care and strengthening. Increase Lexapro to 10 mg daily. Monitor wound healing and sutures to remain in place for now. Needs pressure relief over back of scalp. Plan is home with supervision of spouse and home care services. Risks/benefits of meds, treatments considered. Therapy notes reviewed. Discussed with staff. PMH/SH reviewed and unchanged Note: This dictation was created with assistance of voice recognition software. Phonic and/or minorgrammatical errors may exist. ILucrecia RN, am scribing for, and in the presence of Dr. Marsha JONES. I, Dr. Marsha JONES , personally performed the services described in this documentation, as described by Lucrecia gAuilera RN in my presence and it is both accurate and complete. Digitally Signed by ANALY LARSON DO on 02/05/2022 12:40 PM [facility] [id number] Nurse Progress note Nursing GG Entered On: 02/04/2022 3:11 EDT Performed On: 02/04/2022 3:11 EDT by Mildred Molina RN Nursing GG's OT GG Grid Toilet Hygiene : Independent Toilet Transfer : Supervision/Touching Assist Mildred Molina RN - 02/04/2022 3:11 EDT Digitally Signed by Mildred Molina RN on 02/04/2022 03:11 AM [facility] [id number] Note REFERRING PHYSICIAN: Analy Larson DO. CONSULTING PSYCHOLOGIST: Lai Phillips, PhD. REASON FOR REFERRAL: Psychological exam and opinion on medication adjustments. HISTORY OF PRESENT ILLNESS: Ms. May is a 66-year-old white female admitted to [facility] 01/27/2022 from [facility] after being found unconscious on the floor by her . She was found to have a large right subdural hematoma. She has no recollection of the events or cannot determine whether spontaneous versus traumatic. In any case, underwent decompressive craniotomy as imaging showed at least a 1 centimeter leftwards midline shift with uncal herniation on 01/21/2022. She has had cognitive decline and is being seen by speech language therapy. She has a history of depression and anxiety and is on multiple medications, and I am asked to evaluate as they would like to reduce her quetiapine currently 25 mg at night if possible to reduce impact on daytime cognition. OTHER MEDICAL HISTORY: Includes remote smoking habit, remote alcoholism, COPD, on oxygen at home 2 liters per minute, hypertension, remote right lower extremity DVT, Takotsubo cardiomyopathy, congestive heart failure, hyperlipidemia. No reported past surgeries. PCP is Dr. Joy Stahl. CURRENT MEDICATIONS: The aforementioned; quetiapine 25 mg at night, duloxetine 60 mg during the day, escitalopram 10 mg a day, Ambien 10 mg at night. Previously on clonazepam 1 mg twice a day, but this was discontinued to aid cognition. She has oxycodone 5 mg immediate release as needed for pain upto every ____, nothing else psychoactive or sedating. INTERVIEW RESULTS: Ms. May is polite and cooperative, but has significant memory issues and so reliability is deemed poor. For example, initially stated she had no anxiety and later amended it. After encouragement many of the issues we discussed, she provided polar opposite responses. Physically, states she has had chronic ____ ranging from 5 to 8/10. She notes left lower extremity weakness, but no arm dysfunction nor speech or swallow or incontinence symptoms. Initially, stated no visual changes and admitted she is having problem with left sided vision. In fact, speech languagetherapy notes pretty significant neglect. The patient is dizzy with positional changes. She remainson oxygen 2 liters per minute here and at home. On review of past medical history, the patient reports she had a stroke in 2018, infarction causingleft upper and lower extremity weakness. She reports full recovery and no cognitive impairments from this. Cognitively, the patient states that she is at her baseline, which is normal for her age. Note, speech language therapy notes considerable visual processing issues as well as deficits in attention, memory and executive functions, at least moderately severe. Emotionally, the patient states that she has no depression or anxiety then that she does have depression and anxiety. When she disclosed she had anxiety, she states it is quite severe with 4 to 6 panic attacks a day. She denies other types of anxiety such as OCD, agoraphobia or social phobia. Depression also was initially denied and then acknowledged, but at a level of mild degree. Also reports some irritability with this. She denies severe symptoms such as suicidal thoughts, hallucinations or delusions. No hopelessness or crying jags. Affect is pleasant, just forgetful. States that she is sleeping now better that they restarted her Ambien. States that she is aware they want to cut back on her quetiapine and exchange for the Ambien. States she is willing to do so. Appetite is rated as good. In terms of mental health, the patient states that she developed panic attack 1 year ago and then recanted and listed 2 years ago and then 4 years ago when she had her stroke. I am not confident about any of these estimates. She does not recall having depression previously, but commonly seen in those who struggle with alcoholism. The patient states that she was a heavy beer drinker much of her life. She quit after her stroke without assistance. States she was averaging 4 to 6 beers a day. Denied use of wine, liquor, street drugs or prescription drug abuse. The patient states that she did not receive her meds from Psychiatry rather from her PCP. States that she was on Ativan for many years. Would very much like the Ativan she states. I explained why we did not want the Ativan even more than quetiapine due to the impact on cognition as well as long-term habituation and impairment of balance and coordination. Ms. May lives in [place] with her significant other of 20 years, Mr. Moore. The patient was previously and . Has 3 kids. 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 She quit high school in the 11th grade when she became . CONCLUSIONS: Ms. May is a 66-year-old right-handed white female admitted to [facility] 01/27/2022 from [facility] after being found by her partner unconscious on the floor. Was found to have a large right subdural hematoma (uncertain whether traumatic versus spontaneous). Required craniotomy. She has had significant cognitive impairments and psychiatric medications were adjusted to improve cognition including discontinuing Ativan 1 mg twice a day and with the hope of reducing the quetiapine 25 mg at night to aid cognition. Dr. Larson asked that I evaluate and make my recommendations. MENTAL HEALTH HISTORY: Includes; 1. Remote alcoholism in long-term sobriety. 2. Panic disorder without agoraphobia, probably with generalized anxiety, chronic, currently moderate to severe. 3. Depression. She lists as first occurrence, but probably had episodes before based on her other health risk factors. Currently rated as mild. I encouraged Ms. May to allow us to reduce the quetiapine to 12.5 mg at night as the Clarisse almeida has helped restore better sleep. If tolerated, would then increase the escitalopram to helpwith significant anxiety and milder depression. The patient agreed to this plan. Cognitive therapy will not be helpful due to the cognitive deficits. Nevertheless, I did give her instruction on deep breathing and progressive muscle relaxation exercises. Also I asked her to contact Dex as patient was using audio books prior to her subdural hematoma. Because of her visual dist urbance, she admits she is not able to read now. May be able to follow books on tape better. I will follow up at weekly intervals on these issues. I thank Dr. Larson for this referral. 40 minutes FINAL DIAGNOSES: 1. Cognitive deficits secondary to subdural hematoma, right cerebrum, status post craniotomy, deficits ranging from mild to severe. 2. Panic disorder, probably with generalized ruminative anxiety, [id number]. 3. Depression, probably recurrent, currently mild. LAI PHILLIPS, PhD GM/NTS JOB#: [id number] DICTATION ID#: [id number] Digitally Signed by LAI PHILLIPS PhD on 02/04/2022 01:28 PM [id number] Physical medicine and rehab Progress note Rehab Note Chief Complaint: Seeing this patient for evaluation of therapy, subdural hematoma s/p craniotomy History of Present Illness: Seeing this patient for evaluation of therapy, subdural hematoma s/p craniotomy. Patient participates in acute inpatient rehabilitation with PT/OT/ST services. Patient hasa past medical history significant for CVA times 08/24/2017, heart attack, right-sided CVA, COPD home oxygen, hypertension, previous DVT right lower extremity, alcohol use and chronic compression fracture T12. 66-year-old female who presented to [facility] on 01/08 after being found down. Head CT demonstrated a large right acute subdural hematoma with midline shift, taken emergently for decompressive hemicraniotomy. Patient had replacement of bone flap and cranioplasty performed on 01/[address] Jurado. Discussed with nursing. Medications reviewed. Tentative discharge date 02/09. Patient sitting up in bed, alert and oriented, can be forgetful. Patient denies any uncontrolled pain or discomfort. Medications (24) Active Scheduled: (8) albuterol - ipratropium 2.5 mg-0.5 mg/3 mL Inhal Patti UD 3 mL, Inhalation, QIDRT balsam Kateryna-castor oil topical 87 mg-788 mg/g oint 60g 1 bacilio, Topical, BID budesonide 0.25 mg/2 mL Susp UD 0.25 mg 2 mL, Inhalation, BIDRT duloxetine [address] capsule 60 mg 1 cap(s), Oral, qDay escitalopram 5 mg tablet 5 mg 1 tab(s), Oral, qDay Misc communication order 1 EA, Miscellaneous, Daily pantoprazole 40 mg EC tablet 40 mg 1 tab(s), Oral, qDayAC senna 8.6 mg Tablet 8.6 mg 1 tab(s), Oral, qDay Continuous: (0) PRN: (16) acetaminophen 325 mg Tablet 650 mg 2 tab(s), Oral, q4h Al hydrox/Mg hydrox/simethicone 200-200-20 mg/5 mL Susp UD 30 mL, Oral, q6h albuterol 0.083% Soln UD (2.5mg/3 mL) 2.5 mg 3 mL, Inhalation, QIDRT bisacodyl 10 mg Suppository 10 mg 1 supp, Rectal, qDay dextrose 50% Solution Disp syringe 50 mL 12.5 gram(s) 25 mL, IV Push, AsDirected docusate sodium 100 mg Capsule 100 mg 1 cap(s), Oral, BID glucagon recombinant 1 mg 1 mg 1 mL, Intramuscular, AsDirected glucose 4 gm Chewable 16 gram(s) 4 tab(s), Chewed, AsDirected glycerin adult Suppository 1 supp, Rectal, Daily hydroxyzine hcl 25 mg tablet 50 mg 2 tab(s), Oral, q6h magnesium hydroxide 8% Suspension 30 mL UD 30 mL, Oral, qHS melatonin 3 mg tablet 3 mg 1 tab(s), Oral, qHS ocular lubricant preserved Soln 15 mL 2 drop(s), Eyes, both, BID oxycodone 5 mg tablet (immediate release) 5 mg 1 tab(s), Oral, q6hr polyethylene glycol 3350 - UD packet 17 gram(s) 15 mL, Oral, qDay zolpidem 5 mg tablet 5 mg 1 tab(s), Oral, qHS Social history: Social support: Lives with spouse Home set-up: Multilevel home, first-floor bedroom/bathroom Barriers to discharge: Time since onset, safety awareness, past medical history Review of Systems: General: Appetite is good Respiratory: Denies shortness of breath, denies cough Cardiovascular: Denies chest pain, denies palpitations Gastrointestinal: Abdomen soft, non tender, non distended. Bowel sounds x 4. Genitourinary: Denies suprapubic pain or tenderness, no dysuria Musculoskeletal: No uncontrolled pain. Left-sided weakness Psychiatric: No reported change in cognition Vitals Signs(Last 24 hrs)__Last Charted Minimum Maximum Temp36.7(FEB 02 08:31)36.7(FEB 02 08:31)36.7(FEB 02 08:31) Resp Rate18(FEB 02 20:10)18(FEB 02 08:31)18(FEB 02 08:31) CIY679(FEB 03 06:06)L 89(FEB 02 16:28)125(FEB 02 21:39) DBP78(FEB 03 06:06)C 50(FEB 02 21:39)78(FEB 03 06:06) Physical Exam: General: No acute distress. Respiratory: Lungs are clear. Nasal cannula in place Cardiovascular: Regular rate and rhythm Gastrointestinal: Abdomen is soft nontender nondistended. Bowel sounds normal x4. Arterial: 1/4 distal pulses bilateral lower extremities Edema: No edema bilateral lower extremities. No calf tenderness. Musculoskeletal: 4/5 left upper extremity strength. Left pronator drift 4+/5 right upper extremity strength 4+/5 bilateral lower extremity strength Decreasing grasp bilaterally Decreased shoulder range of motion bilaterally Spinal Curvatures: increased thoracic kyphosis. No spinal or paraspinal tenderness Polyarthritis Weight bearing status/transfers/ADLs: Weight bearing as tolerated. Ambulated 60 feet, gait belt andstandard cane. Supervision/touch assist sit to lying. Partial/moderate assist walk 10 feet. Supervision/touch assist lying to sitting on side of bed. Supervision/touch assist sit to stand. Supervision/touch assist chair/bed to chair transfer. Supervision/touch assist oral hygiene. Supervision/touchassist toilet hygiene. Supervision/touch assist sit to stand. Supervision/touch assist toilet transfer. Supervision/touch assist putting on/taking off footwear. Skin: Craniotomy incision eschar, no erythema, sutures in place, well approximated. Neurological: Sensation intact. Bilateral upper extremity reflexes 1/4. Bilateral lower extremity reflexes 2/4. 1/4 Achilles reflex. Mucosa dry. Psychiatric: Alert, pleasant, and cooperative. Assessment: Subdural hematoma status post cranioplasty. Mild left hemiparesis. History anemia COPD with chronic oxygen therapy anxiety and alcohol abuse. Plan: Continue acute rehab physical occupational and speech-language therapy. Gait and mobility. ADLs self-care and strengthening. Plan discharge home 02/10/2020 to home with supervision of spouse. Plan DC sutures tomorrow. Plan home care services post discharge. Risks/benefits of meds, treatments considered. Therapy notes reviewed. Discussed with staff. PMH/ reviewed and unchanged Note: This dictation was created with assistance of voice recognition software. Phonic and/or minorgrammatical errors may exist. Lucrecia Sepulveda RN, am scribing for, and in the presence of Dr. Marsha JONES. IDr. Marsha DO , personally performed the services described in this documentation, as described by Lucrecia Aguilera RN in my presence and it is both accurate and complete. Digitally Signed by ANALY LARSON DO on 02/03/2022 02:32 PM Shanti [id number] Nurse Progress note Nursing GG Entered On: 02/02/2022 17:55 EDT Performed On: 02/02/2022 17:55 EDT by Jordan Morales RN Nursing GG's OT GG Grid Eating : Set up & Clean up Toilet Transfer : Partial/Moderate Sit to lying : Partial/Moderate Lying to sitting on side of bed : Partial/Moderate Sit to stand : Partial/Moderate Chair/uph-su-geyhy transfer : Partial/Moderate Jordan Morales RN - 02/02/2022 17:55 EDT Digitally Signed by Jordan Morales RN on 02/02/2022 05:55 PM Shanti [id number] Nurse Progress note REVIEW FAXED TO [facility] Digitally Signed by FINESSE Burden on 02/02/2022 11:12 AM Shanti [id number] Physical medicine and rehab Progress note Rehab Note Chief Complaint: Seeing this patient for evaluation of therapy, subdural hematoma s/p craniotomy History of Present Illness: Seeing this patient for evaluation of therapy, subdural hematoma s/p craniotomy. Patient participates in acute inpatient rehabilitation with PT/OT/ST services. Patient hasa past medical history significant for CVA times 08/24/2017, heart attack, right-sided CVA, COPD home oxygen, hypertension, previous DVT right lower extremity, alcohol use and chronic compression fracture T12. 66-year-old female who presented to [facility] on 01/08 after being found down. Head CT demonstrated a large right acute subdural hematoma with midline shift, taken emergently for decompressive hemicraniotomy. Patient had replacement of bone flap and cranioplasty performed on 01/[address] Jurado. Discussed with nursing. Medications reviewed. Tentative discharge date 02/09. Patient sitting up in bed, alert and oriented, can be forgetful. Patient states she slept well. Patient denies any uncontrolled pain or discomfort. Initiated suture removal on Sunday 02/04. Medications (24) Active Scheduled: (8) albuterol - ipratropium 2.5 mg-0.5 mg/3 mL Inhal Patti UD 3 mL, Inhalation, QIDRT balsam Kateryna-castor oil topical 87 mg-788 mg/g oint 60g 1 bacilio, Topical, BID budesonide 0.25 mg/2 mL Susp UD 0.25 mg 2 mL, Inhalation, BIDRT duloxetine [address] capsule 60 mg 1 cap(s), Oral, qDay escitalopram 5 mg tablet 5 mg 1 tab(s), Oral, qDay Misc communication order 1 EA, Miscellaneous, Daily pantoprazole 40 mg EC tablet 40 mg 1 tab(s), Oral, qDayAC senna 8.6 mg Tablet 8.6 mg 1 tab(s), Oral, qDay Continuous: (0) PRN: (16) acetaminophen 325 mg Tablet 650 mg 2 tab(s), Oral, q4h Al hydrox/Mg hydrox/simethicone 200-200-20 mg/5 mL Susp UD 30 mL, Oral, q6h albuterol 0.083% Soln UD (2.5mg/3 mL) 2.5 mg 3 mL, Inhalation, QIDRT bisacodyl 10 mg Suppository 10 mg 1 supp, Rectal, qDay dextrose 50% Solution Disp syringe 50 mL 12.5 gram(s) 25 mL, IV Push, AsDirected docusate sodium 100 mg Capsule 100 mg 1 cap(s), Oral, BID glucagon recombinant 1 mg 1 mg 1 mL, Intramuscular, AsDirected glucose 4 gm Chewable 16 gram(s) 4 tab(s), Chewed, AsDirected glycerin adult Suppository 1 supp, Rectal, Daily hydroxyzine hcl 25 mg tablet 50 mg 2 tab(s), Oral, q6h magnesium hydroxide 8% Suspension 30 mL UD 30 mL, Oral, qHS melatonin 3 mg tablet 3 mg 1 tab(s), Oral, qHS ocular lubricant preserved Soln 15 mL 2 drop(s), Eyes, both, BID oxycodone 5 mg tablet (immediate release) 5 mg 1 tab(s), Oral, q6hr polyethylene glycol 3350 - UD packet 17 gram(s) 15 mL, Oral, qDay zolpidem 5 mg tablet 5 mg 1 tab(s), Oral, qHS Social history: Social support: Lives with spouse Home set-up: Multilevel home, first-floor bedroom/bathroom Barriers to discharge: Time since onset, safety awareness, past medical history Review of Systems: General: Appetite is good Respiratory: Denies shortness of breath, denies cough Cardiovascular: Denies chest pain, denies palpitations Gastrointestinal: Abdomen soft, non tender, non distended. Bowel sounds x 4. Genitourinary: Denies suprapubic pain or tenderness, no dysuria Musculoskeletal: No uncontrolled pain. Left-sided weakness Psychiatric: No reported change in cognition Vitals Signs(Last 24 hrs)__Last Charted Minimum Maximum Temp37.3(FEB 01 23:17)36.5(FEB 01 16:26)37.3(FEB 01 23:17) Resp Rate18(FEB 01 23:17)18(FEB 01 07:34)20(FEB 01 15:57) PQS680(FEB 01 23:17)116(FEB 01 23:17)126(FEB 01 07:34) DBP60(FEB 01 23:17)L 52(FEB 01 16:26)72(FEB 01 07:34) Physical Exam: General: No acute distress. Respiratory: Lungs are clear. Nasal cannula in place Cardiovascular: Regular rate and rhythm Gastrointestinal: Abdomen is soft nontender nondistended. Bowel sounds normal x4. Arterial: 2/4 distal pulses bilateral lower extremities Edema: No edema bilateral lower extremities. No calf tenderness. Musculoskeletal: 4/5 left upper extremity strength. Left pronator drift 4+/5 right upper extremity strength 4+/5 bilateral lower extremity strength Decreasing grasp bilaterally Decreased shoulder range of motion bilaterally Spinal Curvatures: increased thoracic kyphosis. No spinal or paraspinal tenderness Polyarthritis Weight bearing status/transfers/ADLs: Weight bearing as tolerated. Ambulated 25 feet, gait belt andstandard cane. Supervision/touch assist sit to lying. Partial/moderate assist walk 10 feet. Supervision/touch assist lying to sitting on side of bed. Supervision/touch assist sit to stand. Supervision/touch assist chair/bed to chair transfer. Supervision/touch assist oral hygiene. Supervision/touchassist toilet hygiene. Supervision/touch assist sit to stand. Supervision/touch assist toilet transfer. Supervision/touch assist putting on/taking off footwear. Skin: Craniotomy incision eschar, no erythema, sutures in place, well approximated. Neurological: Sensation intact. Bilateral upper extremity reflexes 2/4. Bilateral lower extremity reflexes 2/4. 1/4 Achilles reflex. Mucosa dry. Far left visual field cut Psychiatric: Alert, pleasant, and cooperative. Assessment: Subdural hematoma, status post cranioplasty. Alcohol abuse. Gait disturbance. Anxiety. Hypertension. Insomnia. COPD. Plan: Continue acute rehab with physical occupational and speech-language therapy. Gait and mobility. ADL self-care strengthening. Speech-language and cognition. O2 per nasal cannula. Bowel routine. Plan remove arturo 02/04/2022. Goal is for home with significant other home care services. Estimated discharge date February 09 Risks/benefits of meds, treatments considered. Therapy notes reviewed. Discussed with staff. PMH/SH reviewed and unchanged Note: This dictation was created with assistance of voice recognition software. Phonic and/or minorgrammatical errors may exist. Lucrecia Sepulveda RN, am scribing for, and in the presence of Dr. Marsha JONES. I, Dr. Marsha JONES , personally performed the services described in this documentation, as described by Lucrecia Aguilera RN in my presence and it is both accurate and complete. Digitally Signed by ANALY LARSON DO on 02/02/2022 01:49 PM Shanti [id number] Physical medicine and rehab Progress note Date of Service 02/01/2022 Chief Complaint Subdural hematoma Subjective 66-year-old female seen today in follow-up. Case discussed with nursing and therapy staff. Took low-dose Ambien last night and slept well. States that she did not like how the Seroquel made her feel. Has been a chronic Ambien user. Educated regarding as needed indication of this medication. Current estimate discharge home with family in 1 week. Will need distant supervision. Goals of advanced independent with device with mobility. Currently touching assist. Denies chest pain shortness breath cough wheeze or headache. No visual disturbance Objective Vitals and Measurements T: 36.9 C (Oral) TMIN: 36.6 C (Oral) TMAX: 36.9 C (Oral) HR: 102 RR: 18 BP: 126/72 SpO2: 96% Intake and Output 7AM Yesterday to 7AM Today Intake and Output (Last 24 hours) Intake Supplement Intake 237.00 Output Total Summary Total Intake 237.00 Total Output 0.00 Fluid Balance 237.00 Physical Exam General Appearance: Alert and oriented 3 no apparent distress Head: Normocephalic no evidence of trauma EENT: Pupils equal and reactive to light and accommodation no erythema. Ears with no external lesions or discharge. Nose clear nares patent no discharge. Throat normal healthy dentition no redness orerythema. Neck: Trachea midline. No lymphatic adenopathy Cardiac: Regular rate and rhythm, no rubs or murmurs Lungs: Clear to auscultation, no adventitious sounds, good aeration Abdomen: Soft nontender no organomegaly or rebound positive bowel sounds Musculoskeletal: Intact range of motion no erythema no polyarthritic changes Extremities: No edema. Negative Homans sign Neurological: Mild left body weakness. Mild neurocognitive deficits. Balance fair. Skin: Right cranioplasty incision intact and healing well scant eschar. No erythema nor edema. Psychiatric: Mood good. No anxiety depression Weight Dosing Weight: 61.4 kg (01/28/22) Dosing Weight: 64.6 kg (01/27/22) Medications Medications (24) Active Scheduled: (8) albuterol - ipratropium 2.5 mg-0.5 mg/3 mL Inhal Patti UD 3 mL, Inhalation, QIDRT balsam Kateryna-castor oil topical 87 mg-788 mg/g oint 60g 1 bacilio, Topical, BID budesonide 0.25 mg/2 mL Susp UD 0.25 mg 2 mL, Inhalation, BIDRT duloxetine [address] capsule 60 mg 1 cap(s), Oral, qDay escitalopram 5 mg tablet 5 mg 1 tab(s), Oral, qDay Misc communication order 1 EA, Miscellaneous, Daily pantoprazole 40 mg EC tablet 40 mg 1 tab(s), Oral, qDayAC senna 8.6 mg Tablet 8.6 mg 1 tab(s), Oral, qDay Continuous: (0) PRN: (16) acetaminophen 325 mg Tablet 650 mg 2 tab(s), Oral, q4h Al hydrox/Mg hydrox/simethicone 200-200-20 mg/5 mL Susp UD 30 mL, Oral, q6h albuterol 0.083% Soln UD (2.5mg/3 mL) 2.5 mg 3 mL, Inhalation, QIDRT bisacodyl 10 mg Suppository 10 mg 1 supp, Rectal, qDay dextrose 50% Solution Disp syringe 50 mL 12.5 gram(s) 25 mL, IV Push, AsDirected docusate sodium 100 mg Capsule 100 mg 1 cap(s), Oral, BID glucagon recombinant 1 mg 1 mg 1 mL, Intramuscular, AsDirected glucose 4 gm Chewable 16 gram(s) 4 tab(s), Chewed, AsDirected glycerin adult Suppository 1 supp, Rectal, Daily hydroxyzine hcl 25 mg tablet 50 mg 2 tab(s), Oral, q6h magnesium hydroxide 8% Suspension 30 mL UD 30 mL, Oral, qHS melatonin 3 mg tablet 3 mg 1 tab(s), Oral, qHS ocular lubricant preserved Soln 15 mL 2 drop(s), Eyes, both, BID oxycodone 5 mg tablet (immediate release) 5 mg 1 tab(s), Oral, q6hr polyethylene glycol 3350 - UD packet 17 gram(s) 15 mL, Oral, qDay zolpidem 5 mg tablet 5 mg 1 tab(s), Oral, qHS Lab Results No 36 Hour Lab Data EKG No qualifying data available. Assessment/Plan 1. Subdural hematoma Status post craniectomy and subsequent cranioplasty. 2. Anxiety Emotional support 3. COPD (chronic obstructive pulmonary disease) O2 supplement chronic. 4. History of stroke Secondary prevention 5. History of cranioplasty Neurosurgery follow-up 6. Alcohol abuse Cessation 7. Anemia Follow labs Time Spent 25 minutes Digitally Signed by ANALY LARSON DO on 02/01/2022 11:34 AM Shanti [id number] Nurse Progress note Nursing GG Entered On: 01/31/2022 0:02 EDT Performed On: 01/31/2022 0:02 EDT by Vianca Wynn RN Nursing GG's OT GG Grid Eating : Not Completed Oral Hygiene : Not Completed Toilet Hygiene : Not Completed Toilet Transfer : Not Completed Bathing : Not Completed Upper Body Dressing : Not Completed Lower Body Dressing : Not Completed Putting on/taking off footwear : Not Completed Roll left and right : Not Completed Sit to lying : Not Completed Lying to sitting on side of bed : Not Completed Sit to stand : Not Completed Chair/zao-hx-ladid transfer : Not Completed Walk 10 ft : Not Completed Walk 50 ft with 2 turns : Not Completed Walk 150 ft : Not Completed Picking up object : Not Completed Vianca Wynn RN - 01/31/2022 0:02 EDT Digitally Signed by Vianca Wynn RN on 01/31/2022 12:02 AM Shanti [id number] Nurse Progress note Eating-05 Setup Oral hygiene-04 Supervision/Touching assistance Toileting hygiene-03 Partial/Moderate assistance Shower/bathe self-03 Partial/Moderate assistance Upper body dressing-06 Independent Lower body dressing-02 Substantial/Maximal assistance Putting on/Taking off footwear-03 Partial/Moderate assistance Roll left and right-04 Supervision/Touching assistance Sit to lying-04 Supervision/Touching assistance Lying to sitting on side of bed-04 Supervision/Touching assistance Sit to stand-03 Partial/Moderate assistance Chair/qma-wv-nlatf transfers-03 Partial/Moderate assistance Toilet transfers-03 Partial/Moderate assistance Car transfers-03 Partial/Moderate assistance Walk 10 feet-03 Partial/Moderate assistance Walk 50 feet with 2 turns-88 Not attempted due to medical condition Walk 150 feet-88 Not attempted due to medical condition Walk 10 feet on uneven surfaces--03 Partial/Moderate assistance 1 step curb-03 Partial/Moderate assistance 4 steps-03 Partial/Moderate assistance 12 steps-88 Not attempted due to medical condition Picking up object-03 Partial/Moderate assistance Patient's goal is not wheelchair mobility. Patient's goal is walking 150 feet-04 Supervision/Touching assistance Digitally Signed by FINESSE Lema on 01/30/2022 09:10 PM Shanti [id number] Nurse Progress note Nursing GG Entered On: 01/30/2022 13:48 EDT Performed On: 01/30/2022 13:48 EDT by FINESSE Hollis Nursing GG's OT GG Grid Eating : Independent Oral Hygiene : Independent Toilet Hygiene : Partial/Moderate Toilet Transfer : Partial/Moderate FINESSE Hollis - 01/30/2022 13:48 EDT Digitally Signed by FINESSE Hollis on 01/30/2022 01:48 PM Shanti [id number] Physical medicine and rehab Progress note Date of Service 01/30/22 Chief Complaint SDH Subjective Patient is a 66 -year-old female seen today in follow-up. Case discussed in team staffing. Weekly rehab report is reviewed. Case discussed with family. All questions are answered. Plan is to continue acute rehab with PT OT and speech-language therapy services. Continue to work on gait training range of motion strengthening ADLs self-care speech-language and dysphagia therapy. Partial assist for mobility transfers and gait. Partial assist for ADLs self- care bathing dressing and toileting. Speech therapy, partial mod for executive functioning and attention. Decreased memoryand focus noted Goal is for discharge home at a modified independent level with probable home care services. Plan discharge date 7-10 days Barriers to discharge cognition For further details, please see electronic team staffing note Objective Vitals and Measurements T: 36.4 C (Temporal Artery) TMIN: 36.4 C (Temporal Artery) TMAX: 36.5 C (Oral) HR: 106 RR: 18 BP: 118/64 SpO2: 96% BMI: 23.98 Intake and Output 7AM Yesterday to 7AM Today Intake and Output (Last 24 hours) Intake Output Total Summary Total Intake 0.00 Total Output 0.00 Fluid Balance 0.00 Physical Exam General Appearance: Alert and oriented 3 no apparent distress Head: Craniotomy incision intact healing well. Sutures in place. Scant eschar EENT: Pupils equal and reactive to light and accommodation no erythema. Ears with no external lesions or discharge. Nose clear nares patent no discharge. Throat normal healthy dentition no redness orerythema. Neck: Trachea midline. No lymphatic adenopathy Cardiac: Regular rate and rhythm, no rubs or murmurs Lungs: Clear to auscultation, no adventitious sounds, good aeration Abdomen: Soft nontender no organomegaly or rebound positive bowel sounds Musculoskeletal: Intact range of motion no erythema no polyarthritic changes Extremities: No edema. Negative Homans sign Neurological: Mild neurocognitive deficits. Mild diffuse weakness left worse than right Skin: Intact without rashes or erythema Psychiatric: Mood good. No anxiety depression Weight Dosing Weight: 61.4 kg (01/28/22) Dosing Weight: 64.6 kg (01/27/22) Medications Medications (22) Active Scheduled: (9) albuterol - ipratropium 2.5 mg-0.5 mg/3 mL Inhal Patti UD 3 mL, Inhalation, QIDRT balsam Kateryna-castor oil topical 87 mg-788 mg/g oint 60g 1 bacilio, Topical, BID budesonide 0.25 mg/2 mL Susp UD 0.25 mg 2 mL, Inhalation, BIDRT duloxetine [address] capsule 60 mg 1 cap(s), Oral, qDay escitalopram 10 mg tablet 10 mg 1 tab(s), Oral, qDay Misc communication order 1 EA, Miscellaneous, Daily pantoprazole 40 mg EC tablet 40 mg 1 tab(s), Oral, qDayAC QUEtiapine 25 mg tablet 12.5 mg 0.5 tab(s), Oral, qHS senna 8.6 mg Tablet 8.6 mg 1 tab(s), Oral, qDay Continuous: (0) PRN: (13) acetaminophen 325 mg Tablet 650 mg 2 tab(s), Oral, q4h Al hydrox/Mg hydrox/simethicone 200-200-20 mg/5 mL Susp UD 30 mL, Oral, q6h albuterol 0.083% Soln UD (2.5mg/3 mL) 2.5 mg 3 mL, Inhalation, QIDRT bisacodyl 10 mg Suppository 10 mg 1 supp, Rectal, qDay dextrose 50% Solution Disp syringe 50 mL 12.5 gram(s) 25 mL, IV Push, AsDirected docusate sodium 100 mg Capsule 100 mg 1 cap(s), Oral, BID glucagon recombinant 1 mg 1 mg 1 mL, Intramuscular, AsDirected glucose 4 gm Chewable 16 gram(s) 4 tab(s), Chewed, AsDirected glycerin adult Suppository 1 supp, Rectal, Daily hydroxyzine hcl 25 mg tablet 50 mg 2 tab(s), Oral, q6h magnesium hydroxide 8% Suspension 30 mL UD 30 mL, Oral, qHS oxycodone 5 mg tablet (immediate release) 5 mg 1 tab(s), Oral, q6hr polyethylene glycol 3350 - UD packet 17 gram(s) 15 mL, Oral, qDay Lab Results No 36 Hour Lab Data EKG No qualifying data available. Assessment/Plan 1. Anxiety 2. COPD (chronic obstructive pulmonary disease) O2 supplement erobic exercises 3. History of stroke 4. Subdural hematoma Weakness left worse than right. Plan continue acute rehab PT OT and speech. 5. History of cranioplasty sutures out next week 6. Alcohol abuse 7. Anemia Orders: Diet per Washcloth Folder Time Spent 25 min Digitally Signed by ANALY LARSON DO on 01/30/2022 10:35 AM Shanti [id number] Nurse Progress note A complete drug regime review was completed upon admission. No potentia clinically significant medication issues were found. Digitally Signed by FINESSE Lema on 01/30/2022 06:50 AM Shanti [id number] Nurse Progress note Nursing GG Entered On: 01/29/2022 13:29 EDT Performed On: 01/29/2022 13:29 EDT by FINESSE Hollis Nursing GG's OT GG Grid Eating : Independent Oral Hygiene : Independent Toilet Hygiene : Partial/Moderate Toilet Transfer : Partial/Moderate FINESSE Hollis - 01/29/2022 13:29 EDT Digitally Signed by FINESSE Hollis on 01/29/2022 01:29 PM Shanti [id number] Physical medicine and rehab Progress note Date of Service 01/29/2022 Chief Complaint Dyspepsia Subjective 66 old female seen today in follow-up. Complains of some dyspepsia and acid reflux. She is admittedstatus post history of subdural hematoma with craniectomy and subsequent cranioplasty. Review of systems completed. Remains on metformin and diabetic diet plate. Blood sugars noted. Blood pressures noted. Routine successful. Touching assist mobility. Supervision for IADLs Objective Vitals and Measurements T: 36.1 C (Temporal Artery) TMIN: 36.1 C (Temporal Artery) TMAX: 36.4 C (Temporal Artery) HR: 96(Apical) RR: 16 BP: 118/60 SpO2: 96% Intake and Output 7AM Yesterday to 7AM Today Intake and Output (Last 24 hours) Intake Output Total Summary Total Intake 0.00 Total Output 0.00 Fluid Balance 0.00 Physical Exam General Appearance: Alert and oriented 3 no apparent distress Head: Normocephalic no evidence of trauma EENT: Pupils equal and reactive to light and accommodation no erythema. Ears with no external lesions or discharge. Nose clear nares patent no discharge. Throat normal healthy dentition no redness orerythema. Neck: Trachea midline. No lymphatic adenopathy Cardiac: Regular rate and rhythm, no rubs or murmurs Lungs: Clear to auscultation, no adventitious sounds, good aeration Abdomen: Soft nontender no organomegaly or rebound positive bowel sounds Musculoskeletal: Intact range of motion no erythema no polyarthritic changes Extremities: No edema. Negative Homans sign Neurological: Mild neurocognitive deficits. Mild left body weakness. Balance fair. Skin: Intact without rashes or erythema Psychiatric: Mood anxious. No anxiety depression Weight Dosing Weight: 61.4 kg (01/28/22) Dosing Weight: 64.6 kg (01/27/22) Medications Medications (22) Active Scheduled: (9) albuterol - ipratropium 2.5 mg-0.5 mg/3 mL Inhal Patti UD 3 mL, Inhalation, QIDRT balsam Kent-castor oil topical 87 mg-788 mg/g oint 60g 1 bacilio, Topical, BID budesonide 0.25 mg/2 mL Susp UD 0.25 mg 2 mL, Inhalation, BIDRT duloxetine [address] capsule 60 mg 1 cap(s), Oral, qDay escitalopram 10 mg tablet 10 mg 1 tab(s), Oral, qDay Misc communication order 1 EA, Miscellaneous, Daily pantoprazole 40 mg EC tablet 40 mg 1 tab(s), Oral, qDayAC QUEtiapine 25 mg tablet 12.5 mg 0.5 tab(s), Oral, qHS senna 8.6 mg Tablet 8.6 mg 1 tab(s), Oral, qDay Continuous: (0) PRN: (13) acetaminophen 325 mg Tablet 650 mg 2 tab(s), Oral, q4h Al hydrox/Mg hydrox/simethicone 200-200-20 mg/5 mL Susp UD 30 mL, Oral, q6h albuterol 0.083% Soln UD (2.5mg/3 mL) 2.5 mg 3 mL, Inhalation, QIDRT bisacodyl 10 mg Suppository 10 mg 1 supp, Rectal, qDay dextrose 50% Solution Disp syringe 50 mL 12.5 gram(s) 25 mL, IV Push, AsDirected docusate sodium 100 mg Capsule 100 mg 1 cap(s), Oral, BID glucagon recombinant 1 mg 1 mg 1 mL, Intramuscular, AsDirected glucose 4 gm Chewable 16 gram(s) 4 tab(s), Chewed, AsDirected glycerin adult Suppository 1 supp, Rectal, Daily hydroxyzine hcl 25 mg tablet 50 mg 2 tab(s), Oral, q6h magnesium hydroxide 8% Suspension 30 mL UD 30 mL, Oral, qHS oxycodone 5 mg tablet (immediate release) 5 mg 1 tab(s), Oral, q6hr polyethylene glycol 3350 - UD packet 17 gram(s) 15 mL, Oral, qDay Lab Results 01/28 06:53 WBC: 7.4 Hgb: 8.0 L Hct: 25.2 L Platelet: 451 H Neutrophil %: 58.9 Glucose Level: 77 L Sodium Level: 142 Potassium Level: 4.0 BUN: 8.0 Creatinine Lvl (s): 0.61 EKG No qualifying data available. Assessment/Plan 1. Anxiety Supportive counseling 2. COPD (chronic obstructive pulmonary disease) 3. History of stroke PT OT speech 4. Subdural hematoma Neurosurgery follow-up 5. History of cranioplasty 6. Alcohol abuse Cessation 7. Anemia Follow labs Orders: pantoprazole, Start: 01/29/22 8:41:00 EDT, Dose = 40 mg, = 1 tab(s), Oral, qDayAC, 0, 01/29/22 8:41:00 EDT Time Spent 25 minutes Digitally Signed by ANALY LARSON DO on 01/29/2022 11:27 AM Shanti [id number] Note Subjective Patient is currently sitting on the side of the bed. She does endorse an increase in shortness of breath from her baseline. She does wear chronic oxygen at 2 L nasal cannula at home. She does have duo nebs and Pulmicort in place. She has no noted conversational dyspnea upon exam today. She reports her bowels are moving she does endorse, Denies constipation or diarrhea. Patient states she would like her Seroquel dose discontinued and to be initiated on Ambien. She feels as if Seroquel makes her too tired and drowsy. Objective General: Alert and oriented, NAD, sitting on the side of the bed. Poor eye contact with flat affect. Interactive and appropriate HEENT: MMM. No nasal drainage. EOMI Respiratory: Lungs are clear to auscultation. Respirations nonlabored on 2 L. No cough, congestion,or conversational dyspnea Cardiovascular: Heart rate regular. No bradycardia, tachycardia, or heart murmur Edema/Varicosities of Extremities: No edema to the bilateral lower extremities Gastrointestinal: Abdomen is soft, nontender, and nondistended. Bowel sounds are present in all 4 quadrants Genitourinary: No CVA tenderness, SP tenderness, or bladder distention Skin: Scalp incision to right side of head, well approximated VITALS [id number](kg) 01/29 03:3836.4--[id number]/27 61.4 01/28 20:05----[id number] 64.6 01/28 16:2536.2110/[id number] 2.0L/m 01/28 16:06----[id number]-- 01/28 08:4835.897/[id number] 2.0L/m 24 Hr Tmax: 36.4 at 01/29 03:38 36 Hr Tmax: 36.4 at 01/29 03:38 Vital Signs are the last 5 in the past 48 hours. Weights display the last 5 within 7 days. Initial Wt: 01/27 64.6 kg 142 lb Current Wt: 01/28 61.4 kg 135 lb LABS 01/28 06:53 WBC: 7.4 Hgb: 8.0 L Hct: 25.2 L Platelet: 451 H Neutrophil %: 58.9 Glucose Level: 77 L Sodium Level: 142 Potassium Level: 4.0 BUN: 8.0 Creatinine Lvl (s): 0.61 Medications Active Inpt Meds: .PharmacyCommunication (Pharmacy Consult) Start: 01/28/22 11:18:00 EDT, Daily, 01/28/22 11:18:00 EDT DULoxetine Start: 01/27/22 20:02:00 EDT, Dose = 60 mg, = 1 cap(s), Oral, qDay, 0, 01/27/22 20:02:00EDT QUEtiapine Start: 01/28/22 21:00:00 EDT, Dose = 12.5 mg, = 0.5 tab(s), Oral, qHS, 3 day(s), Stop: 01/30/22 21:00:00 EDT, 01/28/22 11:12:00 EDT albuterol-ipratropium (DuoNeb) Start: 01/27/22 21:05:00 EDT, Dose = 3 mL, Soln, Inhalation, QIDRT, 0 balsam Kateryna-castor oil topical (Venelex 788 mg-87 mg/g topical ointment) Start: 01/28/22 9:51:00 EDT, Dose = 1 bacilio, Topical, BID, Apply to: heels, Ointment, 01/28/22 9:51:00 EDT budesonide (Pulmicort Respules) Start: 01/27/22 21:04:00 EDT, Dose = 0.25 mg, = 2 mL, Inhalation, BIDRT, 1st dose location: [facility], 1 escitalopram Start: 01/27/22 20:02:00 EDT, Dose = 10 mg, = 1 tab(s), Oral, qDay, 01/27/22 20:02:00 EDT senna (senna (sennosides) 8.6 mg oral tablet) Start: 01/27/22 20:02:00 EDT, Dose = 8.6 mg, = 1 tab(s), Oral, qDay, 01/27/22 20:02:00 EDT Active PRN Meds: Al hydroxide/Mg hydroxide/simethicone (Maalox) Start: 01/27/22 19:48:00 EDT, Dose = 30 mL, Susp, Oral, q6h, PRN, Indigestion, 0, 01/27/22:48:00 EDT acetaminophen (Tylenol) Start: 01/27/22 19:48:00 EDT, Dose = 650 mg, = 2 tab(s), Oral, q4h, PRN, Muscle pain, 0, 01/27/22 19:48:00 EDT albuterol Start: 01/27/22 21:01:00 EDT, Dose = 2.5 mg, = 3 mL, Inhalation, QIDRT, PRN, Shortness ofbreath (SOB), 0 bisacodyl Start: 01/27/22 20:02:00 EDT, Dose = 10 mg, = 1 supp, Rectal, qDay, PRN, Constipation, 01/27/22 20:02:00 EDT docusate (Colace) Start: 01/27/22 19:48:00 EDT, Dose = 100 mg, = 1 cap(s), Oral, BID, PRN, Constipation, 01/27/22 19:48:00 EDT glucagon (GlucaGen) Start: 01/27/22 19:48:00 EDT, Dose = 1 mg, = 1 mL, Intramuscular, AsDirected, PRN, Hypoglycemia, if unresponsive, NO IV ACCESS & blood glucose less than 60mg/dL. REPEAT x1 if still unresponsive., [facility]st dose [facility]: [facility], 0, 01/27/22 19:48:00 EDT glucose (Dextrose 50% IV Push) Start: 01/27/22 19:48:00 EDT, Dose = 12.5 gram(s), = 25 mL, IV Push,AsDirected, PRN, Hypoglycemia, if unresponsive WITH IV ACCESS & blood glucose less than 60mg/dL. REPEAT x1 if still unresponsive after 2 minutes., 01/27/22 19:48:00 EDT glucose Start: 01/27/22 19:48:00 EDT, Dose = 16 gram(s), = 4 tab(s), Chewed, AsDirected, PRN, Hypoglycemia, DIABETIC PATIENT if responsive & blood glucose less than 60ml/dL. REPEAT x1 if blood glucose less than 60mg/dL after 15 minutes., 0, 01/27/22 19:48... glycerin (glycerin adult rectal suppository) Start: 01/27/22 19:48:00 EDT, Dose = 1 supp, Supp, Rectal, Daily, PRN, Constipation, 0, 01/27/22 19:48:00 EDT hydrOXYzine (hydrOXYzine hydrochloride 25 mg oral tablet) Start: 01/27/22 20:02:00 EDT, Dose = 50 mg, = 2 tab(s), Oral, q6h, PRN, Anxiety, 01/27/22 20:02:00 EDT magnesium hydroxide (Milk of Magnesia) Start: 01/27/22 19:48:00 EDT, Dose = 30 mL, Susp-Oral, Oral,qHS, PRN, Constipation, 0, 01/27/22 19:48:00 EDT oxyCODONE (oxyCODONE 5 mg oral tablet ( IMMEDIATE release )) Start: 01/27/22 20:02:00 EDT, Dose = 5mg, = 1 tab(s), Oral, q6hr, PRN, Pain, 0, 01/27/22 20:02:00 EDT polyethylene glycol 3350 (Miralax Powder Packet) Start: 01/27/22 19:48:00 EDT, Dose = 17 gram(s), =15 mL, Oral, qDay, PRN, Constipation, 0, 01/27/22 19:48:00 EDT One Time Meds: None Active IV Meds: None Problems (8) ACL tear (337335606) Alcohol abuse (84036165) Anemia (958674432) Anxiety (01193923) COPD (chronic obstructive pulmonary disease) (83305684) History of cranioplasty (424176858) History of stroke (2209188302) Subdural hematoma (9645301725) ASSESSMENT/PLAN: Acute right subdural hematoma status post decompressive craniotomy with flap and cranioplasty: Patient is to follow-up with Dr. Matute in 4 to 5 weeks at [facility] Bilateral lower extremity pain: Duplex scan obtained negative for DVT none reported at time of today's exam Anemia: Most recent hemoglobin level at 8.0 would like a follow-up CBC on Wednesday for ongoing monitoring no signs of bruising or bleeding Hypertension: Will monitor vitals closely did have an isolated episode of a systolic blood [id number] currently asymptomatic Tachycardia: At time of today's exam heart rate rhythm regular with a heart rate of 100 again we will monitor vitals closely Acute postoperative pain: Does have oxycodone available will monitor for use throughout stay Insomnia: Patient admits on Seroquel however is requesting to change Ambien due to her extensive neurological ongoing issues over like to consult Dr. Phillips to evaluate and treat for changes in thesemedications at this time we will continue with current plan Depression: Continues on E citalopram, Pleasant cooperative at time of today's exam Constipation: Is on senna we will monitor bowel patterns closely notify her team of no bowel movement greater then 72 hours Chronic respiratory failure: Is oxygen dependent does continue on duo nebs scheduled 4 times daily Follow-up with our team within 1 to 2 days Isabel Sepulveda RN, am scribing for, and in the presence of Hina Beauchamp APRN-CNP, personally performed the services described in this documentation, as scribed byIsabel RN, in my presence and it is both accurate and complete Digitally Signed by HINA TURCIOS on 01/30/2022 12:20 PM Shanti [id number] Nurse Progress note Nursing GG Entered On: 01/28/2022 16:59 EDT Performed On: 01/28/2022 16:59 EDT by Ofe Larios RN Nursing GG's OT GG Grid Eating : Set up & Clean up Ofe Larios RN - 01/28/2022 16:59 EDT Digitally Signed by Ofe Larios RN on 01/28/2022 04:59 PM Shanti [id number] Evaluation + Plan noteExtracted from: Title:Rehab Post Admission Physician Selena HAnthonyP Ayana thor:ANALY LARSON DO Date:01/28/22 Assessment/Plan 1. Anxiety 2. COPD (chronic obstructive pulmonary disease) 3. History of stroke 4. Subdural hematoma 5. History of cranioplasty 6. Alcohol abuse 7. Anemia Medical Comorbidities at the Time of Admission Subdural hematoma status post craniectomy and subsequent cranioplasty, debility, gait disturbance, alcohol abuse, anemia, COPD, anxiety, history bilateral strokes Consulting Physician Dr Sandy Estimated Length of Stay 2 weeks Shanti Jaramillo 07-27-2022 History and physical note Date of Service 01/28/2022 Date of Admission 01/27/[address] Larson [facility] 2.22 Etiologic Diagnosis Traumatic subdural hematoma status post craniectomy and recent cranioplasty History of Present Illness Luiza May is a 66 yo F seen today in admit history and physical. Chart reviewed. Case discussedwith nursing and therapy staff. With a pmhx of aspirin use and alcoholism who presented to [facility] on 01/08/22 after being found down. HCT demonstrated a large R acute SDH with midline shift and she was taken emergently for decompressive hemicraniectomy. She presented for replacement of the bone flap and cranioplasty was performed 01/21/[address] Jurado. Postoperatively she was evaluated by therapy services. Found to have mild diffuse weakness worse on the left. Chronic comorbidities including COPD on oxygen therapy. Due to the fact that she had impairments in gait mobility ADLs and self-care and medical complexity, decision was made to admit her to the acute physical rehab unit. Baseline functional status independent. Current functional status partial assist Medications Home Medications (9) Active albuterol MDI (90 mcg/inh) CFC free inhalation aerosol 2 puff(s), PRN, Inhalation, QID bisacodyl 10 mg rectal suppository 10 mg = 1 supp, PRN, Rectal, qDay Breztri Aerosphere inhalation aerosol See Instructions DULoxetine 60 mg oral delayed release capsule 60 mg = 1 cap(s), Oral, qDay escitalopram 10 mg oral tablet 10 mg = 1 tab(s), Oral, qDay hydrOXYzine hydrochloride 50 mg oral tablet 50 mg = 1 tab(s), PRN, Oral, q6h oxyCODONE 5 mg oral tablet ( IMMEDIATE release ) 5 mg = 1 tab(s), PRN, Oral, q6hr QUEtiapine 25 mg oral tablet 25 mg = 1 tab(s), Oral, qHS senna (sennosides) 8.6 mg oral tablet 8.6 mg = 1 tab(s), Oral, qDay Review of Systems Constitutional: Denies weight changes fever or chills Eyes: Denies dry eyes or vision changes Ears, Nose, Mouth & Throat: Denies nasal congestion throat pain or difficulty swallowing Cardiovascular: Denies chest pain palpitations or uncontrolled blood pressure Respiratory: Dyspnea with exertion of COPD currently on oxygen per nasal cannula Gastrointestinal: Denies diarrhea constipation or early satiety Genitourinary: Denies urgency frequency or hematuria Musculoskeletal: Denies joint pain arthralgias or joint swelling Skin: Denies rashes or erythema Neurological: Subdural hematoma status post fall. History bilateral strokes Psychiatric: Reported history of alcohol abuse. Endocrine: Denies polydipsia polyuria or heat and cold intolerances Allergic/Immunologic: Denies environmental allergies or immune dysfunction Problem List/Past Medical History Ongoing ACL tear Alcohol abuse Anemia Anxiety COPD (chronic obstructive pulmonary disease) History of cranioplasty History of stroke Subdural hematoma Historical No qualifying data Procedure/Surgical History Cholecystectomy Appendectomy Lumpectomy of breast Craniotomy Severo Jurado MD Operative Report Procedure Date: 01/21/22 PREOPERATIVE DIAGNOSIS: 1. Right sided skull defect POSTOPERATIVE DIAGNOSIS: 1. Same PROCEDURE: 1. Right sided cranioplasty with patient own bone > 5cm. SURGEON: Severo Jurado MD NURSE COLLEGE: Rachel Castaneda MD ANESTHESIA: General endotracheal anesthesia Fluids: Refer to the anesthesia documentation for details. EBL: 100cc Complications: none [1] Social History Smoking Status - 07/01/2016 Former smoker Alcohol - No Risk, 09/07/2021 Use: Current., 01/23/2022 Substance Abuse - No Risk, 09/07/2021 Tobacco - No Risk, 09/07/2021 Family History Cancer: Mother. Heart attack 29-Alexsander-2016 02:33:12<$>: Father. Allergies tetanus toxoid (Hives, Swelling) Physical Exam Vitals and Measurements T: 35.8 C (Temporal Artery) TMIN: 35.8 C (Temporal Artery) TMAX: 36.9 C (Oral) HR: 109 RR: 18 BP: 97/51 SpO2: 94% HT: 160.0 cm WT: 64.6 kg BMI: 25.23 Weight Dosing Weight: 64.6 kg (01/27/22) General Appearance: Alert and oriented 3 no apparent distress Head: Normocephalic no evidence of trauma EENT: Pupils equal and reactive to light and accommodation no erythema. Ears with no external lesions or discharge. Nose clear nares patent no discharge. Throat normal healthy dentition no redness orerythema. Neck: Trachea midline. No lymphatic adenopathy Cardiac: Regular rate and rhythm, no rubs or murmurs Lungs: Clear to auscultation, no adventitious sounds, good aeration Abdomen: Soft nontender no organomegaly or rebound positive bowel sounds Musculoskeletal: Intact range of motion no erythema no polyarthritic changes Extremities: No edema. Negative Homans sign Neurological: Mild neurocognitive deficits. Balance fair. Weakness 4 - 4 out of 5 right. Left pronator drift. Mild left facial weakness. Skin: Intact without rashes or erythema. Craniotomy incision to the right of midline vertical with sutures in place scant eschar. No erythema nor drainage. Psychiatric: Mood good. No anxiety depression Lab Results 01/28 06:53 WBC: 7.4 Hgb: 8.0 L Hct: 25.2 L Platelet: 451 H Neutrophil %: 58.9 Diagnostics (09/07/2021 17:[address] Head or Brain w/o Contrast) Age indeterminate however remote appearing infarcts within the right occipital and left parietooccipital lobes. No definite acute infarct identified. There is mild to moderate cerebral volume loss. Scattered hypodensities throughout the periventricular white matter are nonspecific however are most consistent with chronic small vessel angiopathy. ORBITS: The visualized portion of the orbits demonstrate no acute abnormality. SINUSES: The visualized paranasal sinuses and mastoid air cells demonstrate no acute abnormality. SOFT TISSUES/SKULL: Mild left parieto-occipital scalp soft tissue swelling. IMPRESSION: No acute intracranial abnormality. [1] Assessment/Plan 1. Anxiety 2. COPD (chronic obstructive pulmonary disease) 3. History of stroke 4. Subdural hematoma 5. History of cranioplasty 6. Alcohol abuse 7. Anemia Condition Medically complex and medically stable Post Admission Physician Evaluation Medical reconciliation performed. Old chart reviewed. Patient status on admission to rehab is medically stable but medically complex. Appropriate for admission to inpatient rehab facility due to need for 24-hour nursing and medical management in a hospital-based setting. Comparison with information on preadmission screening findings information to be consistent. Diagnoses to be monitored and treated include. Subdural hematoma status post craniectomy and subsequent cranioplasty, debility, gait disturbance, alcohol abuse, anemia, COPD, anxiety, history bilateral strokes Rehabitation physician to direct team staffing. See daily on rehabilitation rounds. Plan is for acute rehab with PT OT and speech-language therapy rehab nursing social work and nutrition for an acute interdisciplinary team rehab approach. Will work on gait training, ADLs, self-care,and strengthening, bowel and bladder program. DVT prophylaxis and medical management of comorbidities Minimal 3 hours/day 5-6 days/week of rehabilitation services Goal is for discharge home at a modified independent level for all gait mobility ADLs and self-careskills, skin intact, medically stable, optimal cardiopulmonary status, free of infection, continentof bowel bladder, adequate pain management and comfort, complete discharge disposition home set up patient and family training. Medical Comorbidities at the Time of Admission Subdural hematoma status post craniectomy and subsequent cranioplasty, debility, gait disturbance, alcohol abuse, anemia, COPD, anxiety, history bilateral strokes Barriers to Discharge Functional medical impairments Consulting Physician Dr Sandy Estimated Length of Stay 2 weeks [1] CT Head or Brain w/o Contrast; RAMOS DARBY MD 09/07/2021 17:05 EST Digitally Signed by ANALY LARSON DO on 01/28/2022 11:51 AM Shanti [id number] Nurse Progress note Patient received and acknowledged the privacy act statement and the data collection information summary on admission. Patient also received and acknowledged the rehab disclosure form with the expected therapy and that she has Human Medicare insurance. Digitally Signed by FINESSE Lema on 01/28/2022 11:47 AM Shanti [id number] Nurse Progress note Nursing GG Entered On: 01/28/2022 11:29 EDT Performed On: 01/28/2022 11:29 EDT by Ofe Larios RN Nursing GG's OT GG Grid Eating : Set up & Clean up Ofe Larios RN - 01/28/2022 11:29 EDT Digitally Signed by Ofe Larios RN on 01/28/2022 11:29 AM [id number] Nurse Progress note Nursing GG Entered On: 01/27/2022 23:17 EDT Performed On: 01/27/2022 23:17 EDT by Luis Metzger RN Nursing GG's OT GG Grid Eating : Set up & Clean up Luis Metzger RN - 01/27/2022 23:17 EDT Digitally Signed by Luis Metzger RN on 01/27/2022 11:17 PM [id number] Nurse Progress note Nursing GG Entered On: 01/27/2022 20:11 EDT Performed On: 01/27/2022 20:11 EDT by Luis Metzger RN Nursing GG's OT GG Grid Eating : Set up & Clean up Luis Metzger RN - 01/27/2022 20:11 EDT Digitally Signed by Luis Metzger RN on 01/27/2022 08:11 PM [id number] Miscellaneous Notes* Nursing Notes - Kaylen Payton RN - 01/27/2022 4:36 PM EDT Called [facility] and gave report to Des KILPATRICK. Faxed AVS and POONAM to facility. [phone] Pt discharged to [facility] via ambulance. PIV removed. Pt left with all personal belongings. * Plan of Care - Anayeli Oneill RN - 01/27/2022 6:39 AM EDT Problem: Patient Care Overview Goal: Plan of Care Review Outcome: Progressing Toward Goal Problem: Fall/Trauma/Injury Risk (Adult) Goal: Fall/Trauma/Injury Risk: Absence of Trauma/Injury/Falls Description: Patient will demonstrate the desired outcomes. Outcome: Met This Shift Goal: Knowledge of risk factors/behavior modification Description: Knowledge of risk factors/behavior modification for fall/injury prevention Outcome: Progressing Toward Goal Problem: Mobility, Physical Impaired (Adult) Goal: Identify Related Risk Factors and Signs and Symptoms Description: Related risk factors and signs and symptoms are identified upon initiation of Human Response Clinical Practice Guideline (CPG) Outcome: Ongoing Goal: Enhanced Mobility Skills Description: Patient will demonstrate the desired outcomes by discharge/transition of care. Outcome: Ongoing Goal: Enhanced Functionality Ability Description: Patient will demonstrate the desired outcomes by discharge/transition of care. Outcome: Ongoing Problem: Pain, Acute (Adult) Goal: Identify Related Risk Factors and Signs and Symptoms Description: Related risk factors and signs and symptoms are identified upon initiation of Human Response Clinical Practice Guideline (CPG) Outcome: Progressing Toward Goal Goal: Acceptable Pain Control/Comfort Level Description: Patient will demonstrate the desired outcomes by discharge/transition of care. Outcome: Progressing Toward Goal * Plan of Care - Sinai Saenz OT - 01/26/2022 3:31 PM EDT Problem: OT - ADLs Goal: Grooming Description: Pt will complete grooming standing Mod I for improved ability to safely complete ADLs. Outcome: Ongoing Problem: OT - Visual Scanning Goal: Visual Tracking Description: Pt will track past midline to right 2/3 completions during session with 75% cues, to attend to familiar object/person for ADL participation. Outcome: Ongoing Problem: OT - Cognition Goal: Cognition - Command following Description: Pt will follow 75% of 1 step commands during ADL task for improved safety and success at discharge destination. Outcome: Ongoing Problem: OT - Balance Goal: Balance - Seated Description: Pt will perform 10 minutes of ADL routine in sitting with minimal assistance and balance level of minimum assist to promote safety during self- care activities. Outcome: Ongoing * Plan of Care - Courtney Mcneil RN - 01/25/2022 6:25 AM EDT Problem: Patient Care Overview Goal: Plan of Care Review Outcome: Met This Shift Goal: Individualization & Mutuality Outcome: Met This Shift Problem: Fall/Trauma/Injury Risk (Adult) Goal: Fall/Trauma/Injury Risk: Absence of Trauma/Injury/Falls Description: Patient will demonstrate the desired outcomes. Outcome: Met This Shift Goal: Knowledge of risk factors/behavior modification Description: Knowledge of risk factors/behavior modification for fall/injury prevention Outcome: Met This Shift * Nursing Notes - Courtney Mcneil RN - 01/24/2022 9:15 PM EDT Edita May Pt c/o pain while peeing. Urinanalysis? Courtney [id number] * Plan of Care - Shahrzad Corrales RD - 01/23/2022 1:56 PM EDT Nutrition Recommendations and Plan of Care: Encourage po intake. Pt not currently meeting nutrition needs with po intake Pt declined ONS Monitor weight, labs, skin, and po intake RD will continue to follow during admission * Nursing Notes - Marga Gould RN - 01/22/2022 6:21 PM EDT Paged x [phone] [facility] Night RES [phone] Edita May Pt has Hx. of CHF, HTN noticed MIV fluids running are you wanting to continue, Fluid overload concern? Also pt. head Dressing is saturated and needs changed which first dressing change usually done by surgeon ashvin [id number] * Plan of Care - Zarina Mcdonald, PT - 01/22/2022 12:58 PM EDT Problem: PT - Mobility Goal: Ambulation Description: Pt will ambulate 50 feet with appropriate UE assistance with moderate assistance to improve ability to navigate home environment. Outcome: Progressing Toward Goal Problem: PT - Transfers Goal: Supine <-> Sit Description: Pt will perform bed mobility with flat bed & no rail with standby assistance in order to improve functional mobility and safety. Outcome: Progressing Toward Goal Goal: Sit <-> Stand Description: Pt will perform sit to/from stand transfers with standby assistance with appropriate UE support in order to improve functional mobility and safety. Outcome: Progressing Toward Goal Goal: Stand-Pivot Description: Pt will perform stand/pivot transfer to/from bed/chair/commode with minimal assistancewith appropriate UE support in order to improve functional mobility and safety. Outcome: Progressing Toward Goal * Plan of Care - Rosalia Figueroa OT - 01/22/2022 11:47 AM EDT Problem: OT - Cognition Goal: Cognition - Command following Description: Pt will follow 75% of 1 step commands during ADL task for improved safety and success at discharge destination. Outcome: Met This Shift Problem: OT - ADLs Goal: Grooming Description: Pt will complete grooming standing Mod I for improved ability to safely complete ADLs. Outcome: Progressing Toward Goal Problem: OT - Balance Goal: Balance - Seated Description: Pt will perform 10 minutes of ADL routine in sitting with minimal assistance and balance level of minimum assist to promote safety during self- care activities. Outcome: Progressing Toward Goal Problem: OT - Transfers Goal: Transfers Toilet/Bedside Commode Description: Pt will transfer to/from toilet/BSC with CGA for improved ability to safely complete ADLs. Outcome: Progressing Toward Goal * Nursing Notes - Marga Gould RN - 01/22/2022 7:13 AM EDT Paged [phone] [id number] Yadira Good morning Pt Hgb this AM dropped 1 point to 7.6 from 8.6. Pt did have surgery yesterday but PACU stated very little blood loss. Do you want to recheck in 6hrs? or just monitor jenniferck in AM? Thanks Keya #[phone] * Plan of Care - Marga Gould RN - 01/21/2022 5:50 PM EDT Problem: Fall/Trauma/Injury Risk (Adult) Goal: Fall/Trauma/Injury Risk: Absence of Trauma/Injury/Falls Description: Patient will demonstrate the desired outcomes. Outcome: Met This Shift Problem: Patient Care Overview Goal: Plan of Care Review Outcome: Ongoing Goal: Interdisciplinary Rounds/Family Conf Outcome: Ongoing Problem: Fall/Trauma/Injury Risk (Adult) Goal: Knowledge of risk factors/behavior modification Description: Knowledge of risk factors/behavior modification for fall/injury prevention Outcome: Ongoing Problem: Mobility, Physical Impaired (Adult) Goal: Identify Related Risk Factors and Signs and Symptoms Description: Related risk factors and signs and symptoms are identified upon initiation of Human Response Clinical Practice Guideline (CPG) Outcome: Ongoing * Op Note - Rachel Castaneda MD - 01/21/2022 5:20 PM EDT Operative Report Procedure Date: 01/21/22 PREOPERATIVE DIAGNOSIS: 1. Right sided skull defect POSTOPERATIVE DIAGNOSIS: 1. Same PROCEDURE: 1. Right sided cranioplasty with patient own bone > 5cm. SURGEON: Severo Jurado MD NURSE COLLEGE: Rachel Castaneda MD ANESTHESIA: General endotracheal anesthesia Fluids: Refer to the anesthesia documentation for details. EBL: 100cc Complications: none BRIEF CLINICAL HISTORY AND INDICATIONS FOR PROCEDURE: Luiza May is a 66 yo F with a pmhx of aspirin use and alcoholism who [facility] on [facility]22after being found down. HCT demonstrated a large R acute SDH with midline shift and she was taken emergently for decompressive hemicraniectomy. She presents today for replacement of the bone flap. She has recovered from her subdural and was found to be ready to have her bone flap placed back. Wediscussed with the patient's family the risks and benefits of the procedure and they elected to proceed with cranioplasty. PROCEDURE IN DETAIL: The patient was brought to the operating room and placed supine on the operating room table. The skull bone flap was brought out from the hospital fridge and placed in sterile warm tisusol.The neuroanesthesiology team safely intubated the patient endotracheally. All pressure points were padded to prevent any pressure sores during the procedure. The patient's head was then placed on horseshoe thatwas attached to the table to ensure stability throughout the operation. The head was turned to the left and a shoulder role placed under the right shoulder to help expose the previous craniectomy site. The previous craniectomy area was then cleaned with chlorhexidine and the prior sutures were removed, it was then prepped in the normal sterile fashion. The previous incision was then opened using a #10 surgical blade and metzenbaum scissors. The incision was carried all the way down to the bone in places where clear bone shelf could be palpated. In other metzenbaum scissors were used to undermine over the bone and cut the skin. Electrocautery and penfield 1 were used to elevate the periosteum and scar tissue and expose the bone underneath away from the bone defect. The dissection was carried out until all bone edges around the defect were defined. We were also able to dissect the temporalis muscle and elevate above the old duragen layer. Hemostasis was obtained and confirmed using a mixture of bipolar and Bovie cautery. At this point we turned our attention to the bone flap.The bone flap was then secured to the skull using the cranial plating system. The wound was copiously irrigated. At this point, the goal of surgery was accomplished and our attention was turned towards closing. The wound was washed with copious amount of Tisusol. The muscle layer was approximated with 2-0 vicryl. The galeal layer was the closed using 2-0 vicryl sutures in an inverted and interrupted fashion. The superficial layer of the skin was closed using a running 2-0 nylon. The wound was the covered with xeroform, gauze and ioban. The patient was then extubated and transferred to the PACU in stable condition. I, Dr. Severo Jurado, was present for the entire surgery including all the critical portions. The patient was transported to the recovery area in stable condition. There were no complications. . Rachel Castaneda MD Neurosurgery PGY-6 [phone] * Nursing Notes - Marga Gould RN - 01/21/2022 12:55 PM EDT Paged [phone] B8Lora May pt back from OR swallow screening passed are we able to get a diet? thank you Keya [id number] * Nursing Notes - Maren Travis RN - 01/21/2022 11:54 AM EDT Report called to admitting unit. PACU admission assessment remains unchanged, dressings intact. Pt transported on telemetry and pulse ox with certified television mechanic at bedside to [place] and then [place] [phone]. * Brief Op Note - Rachel Castaneda MD - 01/21/2022 10:44 AM EDT Luiza Stephanie May ([id number]) PRE OPERATIVE DIAGNOSIS Skull defect [M95.2] Acquired skull defect [M95.2] POST OPERATIVE DIAGNOSIS Post-Op Diagnosis Codes: * Skull defect [M95.2] * Acquired skull defect [M95.2] PROCEDURE PERFORMED Procedure(s) (LRB): CRANIOPLASTY FOR SKULL DEFECT (Right) PRIMARY CLOSURE Yes, 2-0 nylon INTRAOPERATIVE FINDINGS R cranioplasty SURGEON Surgeon(s) and Role: * Severo Jurado MD - Primary ANESTHESIOLOGIST Anesthesiologist: Mildred Basurto MD PARKING LOT SIGNALER: Bonita Osuna APRN-PARKING LOT SIGNALER Transcripter: MARY LOU Hobbs SURGICAL STAFF Wood Shingle Roofer: Becky Gabriel RN Relief Wood Shingle Roofer: Carla Lee RN Relief Scrub: Mamie Mcdonald Scrub Person: Adriane Billy Resident Assisting: Rachel Castaneda MD COMPLICATIONS None ESTIMATED BLOOD LOSS 100 ml SPECIMENS No specimen sent * No specimens in log * Rachel Castaneda MD January 21, 2022 10:44 AM * Plan of Care - Cindy Spring RN - 01/21/2022 7:00 AM EDT Problem: Patient Care Overview Goal: Plan of Care Review Outcome: Ongoing Goal: Individualization & Mutuality Outcome: Ongoing Goal: Discharge Needs Assessment Outcome: Ongoing Goal: Interdisciplinary Rounds/Family Conf Outcome: Ongoing * Plan of Care - Bárbara Garcia RN - 01/20/2022 6:53 PM EDT Problem: Ventilation, Mechanical Invasive (Adult) Goal: Signs and Symptoms of Listed Potential Problems Will be Absent, Minimized or Managed (Ventilation, Mechanical Invasive) Description: Signs and symptoms of listed potential problems will be absent, minimized or managed by discharge/transition of care (reference Ventilation, Mechanical Invasive (Adult) CPG). Outcome: Completed Patient breathing with 2L of oxygen Problem: Nutrition, Enteral (Adult) Goal: Signs and Symptoms of Listed Potential Problems Will be Absent, Minimized or Managed (Nutrition, Enteral) Description: Signs and symptoms of listed potential problems will be absent, minimized or managed by discharge/transition of care (reference Nutrition, Enteral (Adult) CPG). Dobhoff removed, pt with regular diet. Outcome: Completed Goal: Signs and Symptoms of Listed Potential Problems Will be Absent, Minimized or Managed (Nutrition, Enteral) Description: Signs and symptoms of listed potential problems will be absent, minimized or managed by discharge/transition of care (reference Nutrition, Enteral (Adult) CPG). Outcome: Completed * Nursing Notes - Bárbara Garcia RN - 01/20/2022 3:41 PM EDT Text page sent to MD Liu: Edita, Keri, Yadira: MARYA, she passed her swallow. She really wants the dobhoff out. Any plans to remove that today? Thanks, Bárbara [phone] * Nursing Notes - Bárbara Garcia RN - 01/20/2022 2:02 PM EDT Text page sent to MD Ta: Madelin Kohler Beckler: Pt appears to have a bleeding hemorrhoid's. Can you place a tux pad order for her? [place] one when providing care and bright red blood on pad, none noted in stool. Did not visualize one when looking. Thanks, Bárbara [phone] * Nursing Notes - Becky Valero RN - 01/20/2022 8:47 AM EDT Paged NS3: [phone] Luiza May: Dr. Rawls called this patient's brother last night and left a message. he would like to speak with someone today and is at bedside. His name is Antelmo Everett [phone] * Plan of Care - Cindy Spring RN - 01/20/2022 6:08 AM EDT Problem: Patient Care Overview Goal: Plan of Care Review Outcome: Progressing Toward Goal Goal: Individualization & Mutuality Outcome: Progressing Toward Goal Goal: Discharge Needs Assessment Outcome: Progressing Toward Goal Goal: Interdisciplinary Rounds/Family Conf Outcome: Progressing Toward Goal * Nursing Notes - Farzaneh Mei RN - 01/19/2022 2:42 PM EDT Sent text-page to Dr. Nava [phone] Luiza May: pt feels anxious, unable to give hydroxyzine until 185. Is there anything else that can be ordered PRN?- Farzaneh [phone] * Plan of Care - Sinai Saenz OT - 01/19/2022 12:33 PM EDT Problem: OT - Dressing Goal: Upper Body Dressing Description: Pt will complete UE dressing task Edge of bed with moderate assistance for improved ability to complete self-care activities. Outcome: Ongoing Problem: OT - ADLs Goal: Grooming Description: Pt will complete grooming Edge of bed with minimal assistance for improved ability to safely complete ADLs. Outcome: Ongoing Problem: OT - Cognition Goal: Cognition - Command following Description: Pt will follow 75% of 1 step commands during ADL task for improved safety and success at discharge destination. Outcome: Ongoing Problem: OT - Balance Goal: Balance - Seated Description: Pt will perform 10 minutes of ADL routine in sitting with minimal assistance and balance level of minimum assist to promote safety during self- care activities. Outcome: Ongoing * Plan of Care - Emma Valles PT - 01/19/2022 12:22 PM EDT Problem: PT - Transfers Goal: Supine <-> Sit Description: Pt will perform bed mobility with moderate assistance in order to improve functional mobility and safety. Outcome: Completed Goal: Sit <-> Stand Description: Pt will perform sit to/from stand transfers with moderate assistance with appropriate UE assistance in order to improve functional mobility and safety. Outcome: Completed Goal: Stand-Pivot Description: Pt will perform stand/pivot transfer to/from bed/chair/commode with moderate assistance with appropriate UE assistance in order to improve functional mobility and safety. Outcome: Completed Problem: PT - Balance/Coordination/Neuro Re-Education Goal: Standing Balance Description: Pt will maintain standing balance with moderate assistance with appropriate UE assistance to improve safety with standing tasks. Outcome: Progressing Toward Goal Problem: PT - Mobility Goal: Ambulation Description: Pt will ambulate 50 feet with appropriate UE assistance with moderate assistance to improve ability to navigate home environment. Outcome: Progressing Toward Goal * Plan of Care - GIRISH Alcala - 01/19/2022 9:12 AM EDT Problem: BELT REPAIRER - Dysphagia Goal: PO Trial 3 Description: Patient will swallow trials of advancing solids demonstrating appropriate alertness, timely/effective mastication, bolus formation and oral bolus transit without overt clinical signs/symptoms of aspiration, across 1-3 sessions to determine readiness for diet advancement. Outcome: Completed * Plan of Care - Marni Naylor RN - 01/17/2022 1:00 PM EDT Problem: Patient Care Overview Goal: Plan of Care Review Outcome: Ongoing Goal: Individualization & Mutuality Outcome: Ongoing Goal: Discharge Needs Assessment Outcome: Ongoing Goal: Interdisciplinary Rounds/Family Conf Outcome: Ongoing Problem: Nutrition, Enteral (Adult) Goal: Signs and Symptoms of Listed Potential Problems Will be Absent, Minimized or Managed (Nutrition, Enteral) Description: Signs and symptoms of listed potential problems will be absent, minimized or managed by discharge/transition of care (reference Nutrition, Enteral (Adult) CPG). Outcome: Ongoing Goal: Signs and Symptoms of Listed Potential Problems Will be Absent, Minimized or Managed (Nutrition, Enteral) Description: Signs and symptoms of listed potential problems will be absent, minimized or managed by discharge/transition of care (reference Nutrition, Enteral (Adult) CPG). Outcome: Ongoing Problem: Fall/Trauma/Injury Risk (Adult) Goal: Fall/Trauma/Injury Risk: Absence of Trauma/Injury/Falls Description: Patient will demonstrate the desired outcomes. Outcome: Ongoing Goal: Knowledge of risk factors/behavior modification Description: Knowledge of risk factors/behavior modification for fall/injury prevention Outcome: Ongoing Problem: Mobility, Physical Impaired (Adult) Goal: Identify Related Risk Factors and Signs and Symptoms Description: Related risk factors and signs and symptoms are identified upon initiation of Human Response Clinical Practice Guideline (CPG) Outcome: Ongoing Goal: Enhanced Mobility Skills Description: Patient will demonstrate the desired outcomes by discharge/transition of care. Outcome: Ongoing Goal: Enhanced Functionality Ability Description: Patient will demonstrate the desired outcomes by discharge/transition of care. Outcome: Ongoing * Nursing Notes - Marni Naylor RN - 01/17/2022 12:25 PM EDT Nakia Heath MD, [facility] - [phone] - Yadira - Pt brother states pt has been taking Ambien for years to help her sleep. Could you order this for pt? Melatonin and Seroquel did not help her sleep last night.Thanks, Marni KILPATRICK MD acknowledged via phone call. MD stated they will discuss with team. [phone]: Nakia Heath MD, [facility] - [phone] - Yadira - Would Zoloft help pt sleep tonight? Seroquel and melatonin did not help last night. Thanks, Marni KILPATRICK * Nursing Notes - Bárbara Moran RN - 01/17/2022 12:20 PM EDT BEHAVIORAL EMERGENCY RESPONSE TEAM ([facility]) RN NOTE 01/17/2022 Luiza May : 1955 Patient observed sitting up in chair in room during [facility] rounding. Sitter present outside door. Patient observed to be confused. Consistently yelling out for seth . Staff report patient's family just left. Patient did not sleep much overnight despite melatonin and Seroquel. Family report patient has been taking Ambien for years for sleep. Spoke with RN regarding notifying doctor of this. Otherwise, no behavioral concerns noted at this time. Has been anxious today, was given PRN Atarax withoutbenefit. Anticholinergic effects may worsen delirium-like symptoms. Could consider consult to psychiatry or geriatrics if AMS persists. Bárbara Moran RN-[facility] Pager: [phone] [facility] Phone: [phone] * Nursing Notes - Marni Naylor RN - 01/17/2022 12:11 PM EDT Nakia Heath MD, [facility] - [phone] - Yadira - WBC have increased last two days to 12.86. Pt is warm and sweating, which is a new change. Pt also more restless, calling out more. I'm worried pt has infection. Do you want to get lactate and cultures? Marni KILPATRICK MD acknowledged via phone call. MD stated they will discuss with team. * Plan of Care - Anayeli Oneill RN - 01/17/2022 4:54 AM EDT Problem: Patient Care Overview Goal: Plan of Care Review Outcome: Progressing Toward Goal Problem: Nutrition, Enteral (Adult) Goal: Signs and Symptoms of Listed Potential Problems Will be Absent, Minimized or Managed (Nutrition, Enteral) Description: Signs and symptoms of listed potential problems will be absent, minimized or managed by discharge/transition of care (reference Nutrition, Enteral (Adult) CPG). Outcome: Progressing Toward Goal Problem: Fall/Trauma/Injury Risk (Adult) Goal: Fall/Trauma/Injury Risk: Absence of Trauma/Injury/Falls Description: Patient will demonstrate the desired outcomes. Outcome: Progressing Toward Goal Problem: Mobility, Physical Impaired (Adult) Goal: Identify Related Risk Factors and Signs and Symptoms Description: Related risk factors and signs and symptoms are identified upon initiation of Human Response Clinical Practice Guideline (CPG) Outcome: Progressing Toward Goal * Nursing Notes - Melina Moreno RN - 01/16/2022 10:55 PM EDT Nakia Jc MD [address] 8[facility] [address] [place]: per psych note this pt is Low SI risk at this time. could we d/c all the suicide orders? you can leave the sitter orders but they would be behavioral sit not SI. Thanks Vivien [id number] * Plan of Care - Marni Naylor RN - 01/16/2022 6:21 PM EDT Problem: Patient Care Overview Goal: Plan of Care Review Outcome: Ongoing Goal: Individualization & Mutuality Outcome: Ongoing Goal: Discharge Needs Assessment Outcome: Ongoing Goal: Interdisciplinary Rounds/Family Conf Outcome: Ongoing Problem: Ventilation, Mechanical Invasive (Adult) Goal: Signs and Symptoms of Listed Potential Problems Will be Absent, Minimized or Managed (Ventilation, Mechanical Invasive) Description: Signs and symptoms of listed potential problems will be absent, minimized or managed by discharge/transition of care (reference Ventilation, Mechanical Invasive (Adult) CPG). Outcome: Ongoing Problem: Nutrition, Enteral (Adult) Goal: Signs and Symptoms of Listed Potential Problems Will be Absent, Minimized or Managed (Nutrition, Enteral) Description: Signs and symptoms of listed potential problems will be absent, minimized or managed by discharge/transition of care (reference Nutrition, Enteral (Adult) CPG). Outcome: Ongoing Goal: Signs and Symptoms of Listed Potential Problems Will be Absent, Minimized or Managed (Nutrition, Enteral) Description: Signs and symptoms of listed potential problems will be absent, minimized or managed by discharge/transition of care (reference Nutrition, Enteral (Adult) CPG). Outcome: Ongoing Problem: Fall/Trauma/Injury Risk (Adult) Goal: Fall/Trauma/Injury Risk: Absence of Trauma/Injury/Falls Description: Patient will demonstrate the desired outcomes. Outcome: Ongoing Goal: Knowledge of risk factors/behavior modification Description: Knowledge of risk factors/behavior modification for fall/injury prevention Outcome: Ongoing Problem: Mobility, Physical Impaired (Adult) Goal: Identify Related Risk Factors and Signs and Symptoms Description: Related risk factors and signs and symptoms are identified upon initiation of Human Response Clinical Practice Guideline (CPG) Outcome: Ongoing Goal: Enhanced Mobility Skills Description: Patient will demonstrate the desired outcomes by discharge/transition of care. Outcome: Ongoing Goal: Enhanced Functionality Ability Description: Patient will demonstrate the desired outcomes by discharge/transition of care. Outcome: Ongoing * Nursing Notes - Marni Naylor RN - 01/16/2022 6:18 PM EDT Nakia Jc MD, [facility] - 872 - Y[place] - CAROLI pt was hallucinating a snake and spider on the wall. Saw snake for 30 minutes. No longer see's snake or spiders. No other change in assessment noted. Marni Larson RN * Plan of Care - Lupe Keane RD - 01/16/2022 5:14 PM EDT Problem: Nutrition, Enteral (Adult) Goal: Signs and Symptoms of Listed Potential Problems Will be Absent, Minimized or Managed (Nutrition, Enteral) Description: Signs and symptoms of listed potential problems will be absent, minimized or managed by discharge/transition of care (reference Nutrition, Enteral (Adult) CPG). Outcome: Ongoing Note: Nutrition Recommendations and Plan of Care: 1. Continue current diet. Diet advancement per BELT REPAIRER. - pt declines oral nutrition supplements 2. Recommend transitioning to nocturnal TF. Vital AF 1.2 @90 ml/hr x 16 hrs (100% needs) 3. Can start weaning TF once PO intake at least consistently 50-75%. 4. Monitor PO intake/TF, bowel function, skin integrity, wt change, and lab values. 5. RD to follow. * Nursing Notes - Marni Naylor RN - 01/16/2022 12:46 PM EDT Secure chat with [employer] WEB DEVELOPER, Pt family notified RN that they gave 2 puffs of albuterol to pt at 1225. Would you like me to chart that family administered or would you rather chart? I educated family that HTML WEB DEVELOPER comes to give inhalers so they don't have to. Thanks, Marni KILPATRICK * Nursing Notes - Marni Naylor RN - 01/16/2022 7:27 AM EDT Nakia Nava MD, BS - 872 - Y[place] - Can you renew sitter order? ThanksMarni RN, MD renewed sitter order. * Nursing Notes - Marni Naylor RN - 01/15/2022 6:00 PM EDT 01/15 0600: Nakia MENDES, [facility] - 872 - [place] - Pt has 30ml flushes 4 times daily. Her UO is averaging about 38ml/hr, but would you want to increase flushes to prevent dehydration as pt isn't drinking much PO. Marni Larson RN 01/16 07: called. Told RN to encourage PO intake. * Nursing Notes - Marni Naylor RN - 01/15/2022 5:32 PM EDT Nakia MENDES, [facility] 872 - [place] - Could you order eyedrops for pt? Eye's are dry. Marni Larson RN * Nursing Notes - Marni Naylor RN - 01/15/2022 2:47 PM EDT Nakia Nava MD, [facility] - 872 - [place] - Can you change Tylenol order for mild, mod, and severe pain? Marni Larson RN MD changed order. * Plan of Care - Zarina Mcdonald PT - 01/15/2022 1:03 PM EDT Problem: PT - Transfers Goal: Supine <-> Sit Description: Pt will perform bed mobility with moderate assistance in order to improve functional mobility and safety. Outcome: Progressing Toward Goal Goal: Sit <-> Stand Description: Pt will perform sit to/from stand transfers with moderate assistance with appropriate UE assistance in order to improve functional mobility and safety. Outcome: Progressing Toward Goal Goal: Stand-Pivot Description: Pt will perform stand/pivot transfer to/from bed/chair/commode with moderate assistance with appropriate UE assistance in order to improve functional mobility and safety. Outcome: Progressing Toward Goal * Plan of Care - Marni Naylor RN - 01/15/2022 12:43 PM EDT Problem: Patient Care Overview Goal: Plan of Care Review Outcome: Ongoing Goal: Individualization & Mutuality Outcome: Ongoing Goal: Discharge Needs Assessment Outcome: Ongoing Goal: Interdisciplinary Rounds/Family Conf Outcome: Ongoing Problem: Nutrition, Enteral (Adult) Goal: Signs and Symptoms of Listed Potential Problems Will be Absent, Minimized or Managed (Nutrition, Enteral) Description: Signs and symptoms of listed potential problems will be absent, minimized or managed by discharge/transition of care (reference Nutrition, Enteral (Adult) CPG). Outcome: Ongoing Problem: Fall/Trauma/Injury Risk (Adult) Goal: Fall/Trauma/Injury Risk: Absence of Trauma/Injury/Falls Description: Patient will demonstrate the desired outcomes. Outcome: Ongoing Goal: Knowledge of risk factors/behavior modification Description: Knowledge of risk factors/behavior modification for fall/injury prevention Outcome: Ongoing Problem: Mobility, Physical Impaired (Adult) Goal: Identify Related Risk Factors and Signs and Symptoms Description: Related risk factors and signs and symptoms are identified upon initiation of Human Response Clinical Practice Guideline (CPG) Outcome: Ongoing Problem: Mobility, Physical Impaired (Adult) Goal: Enhanced Mobility Skills Description: Patient will demonstrate the desired outcomes by discharge/transition of care. Outcome: Progressing Toward Goal Goal: Enhanced Functionality Ability Description: Patient will demonstrate the desired outcomes by discharge/transition of care. Outcome: Progressing Toward Goal * Plan of Care - Meg Fields OT - 01/15/2022 12:15 PM EDT Problem: OT - Balance Goal: Balance - Seated Description: Pt will perform 10 minutes of ADL routine in sitting with minimal assistance and balance level of minimum assist to promote safety during self- care activities. Outcome: Ongoing Problem: OT - Transfers Goal: Transfers Toilet/Bedside Commode Description: Pt will transfer to/from toilet/BSC with moderate assistance for improved ability to safely complete ADLs. Outcome: Ongoing Problem: OT - ADLs Goal: Grooming Description: Pt will complete grooming Edge of bed with minimal assistance for improved ability to safely complete ADLs. Outcome: Progressing Toward Goal Problem: OT - Cognition Goal: Cognition - Command following Description: Pt will follow 75% of 1 step commands during ADL task for improved safety and success at discharge destination. Outcome: Progressing Toward Goal * Nursing Notes - Yaritza Dickinson RN - 01/15/2022 10:38 AM EDT BEHAVIORAL EMERGENCY RESPONSE TEAM ([facility]) RN NOTE 01/15/2022 Luiza May : 1955 Sitter rounds. Pt seen lying in bed. Spoke to shared sitter outside of her room who states pt has been self dialoging and confused. No behavioral issues reported. Contact [facility] as needed. Yaritza Dickinson RN [facility] Pager: [phone] [facility] Phone: [phone] * Nursing Notes - Marni Naylor RN - 01/15/2022 9:25 AM EDT Nakia Nava MD, [facility] - 872 Chandrika May - Pt does not have consent for blood this admission. Can youget consent? Thanks, Marni KILPATRICK MD called RN. MD to call family to get consent. 1102: Nakia Nava MD, [facility] - 872 Chandrika May - Consent for blood not seen in pt chart. Could you make sure you uploaded this? Thanks, Marni KILPATRICK * Nursing Notes - Diane Schwartz RN - 01/14/2022 9:53 PM EDT Page to MD Rawls: Edita, 871/Yadira Sousa, Pt continuing to have hallucinations. Hasn't slept much - delirium? Consistently crying out for help for nonspecific needs - very anxious and labile despite PRNs. Please advise.Thanks, Diane [phone] [employer] Page to MD Rawls: Aisha Kohler/Yadira Sousa, Please place bladder scan and straight cath orders. Thanks, Diaen Schwartz RN, [employer] Page to MD Rawls: Aisha Kohler/Yadira Sousa, Pt expressed thoughts of SI. No plan but doesn't feel life is worth living anymore. Answered orientation questions properly, but still confused and hallucinating. Please advise, Diane Schwartz RN, [facility] [employer] * Nursing Notes - Angelic Nye RN - 01/14/2022 1:24 PM EDT Paged NS 3, re: B8e Yadira 872: Just an FYI patient seems to be having auditory and visual hallucinations at times. Unsure if has previously happened Angelic Nye RN * Plan of Care - Emma Valles PT - 01/14/2022 12:52 PM EDT Problem: PT - Transfers Goal: Strength/ROM Description: Pt will initiate muscle contractions for bilateral upper & lower extremity exercises with minimal assistance in order to improve strength, maintain ROM, necessary for functional mobility. Outcome: Adequate for Discharge Problem: PT - Balance/Coordination/Neuro Re-Education Goal: Sitting Dynamic/Static Balance Description: Pt will perform seated balance tasks with moderate assistance to improve safety with seated tasks. Outcome: Completed Problem: PT - Transfers Goal: Supine <-> Sit Description: Pt will perform bed mobility with moderate assistance in order to improve functional mobility and safety. Outcome: Completed Goal: Sit <-> Stand Description: Pt will perform sit to/from stand transfers with moderate assistance and of 2 people with bilateral handheld assistance in order to improve functional mobility and safety. Outcome: Completed Goal: Squat-Pivot Description: Pt will perform squat/pivot transfer to/from bed/chair/commode with moderate assistance of 2 people with bilateral handheld assistance in order to improve functional mobility and safety. Outcome: Completed * Nursing Notes - Angelic Nye RN - 01/14/2022 7:26 AM EDT Paged NS 3, re: B8e Yadira 872: Patient transferred to floor. I&O need changed from q1 to q4/q8. Please discontinue ICU orders (tele/pulse ox, a.line, CVC, C- spine, q1 pain). Paged NS 3, re: B8lora Yadira 872: Do not think patient will consume enough PO intake to not need TFrunning. Was reluctant to take one bite of meds in puree this AM. Refused anything to drink. Paged NS 3, re: FerMaritolora Yadira 872: Sorry for multiple pages about this patient. Also appears she has not had a BM since admission. Do we want to do an abdominal xray to r/o ileus? Attempted to give PRN miralax this AM. Angelic Nye RN * Plan of Care - Marni Michel RN - 01/14/2022 12:52 AM EDT Problem: Patient Care Overview Goal: Plan of Care Review Outcome: Met This Shift Goal: Individualization & Mutuality Outcome: Met This Shift Problem: Patient Care Overview Goal: Discharge Needs Assessment Outcome: Ongoing Goal: Interdisciplinary Rounds/Family Conf Outcome: Ongoing Problem: Nutrition, Enteral (Adult) Goal: Signs and Symptoms of Listed Potential Problems Will be Absent, Minimized or Managed (Nutrition, Enteral) Description: Signs and symptoms of listed potential problems will be absent, minimized or managed by discharge/transition of care (reference Nutrition, Enteral (Adult) CPG). Outcome: Ongoing Problem: Fall/Trauma/Injury Risk (Adult) Goal: Fall/Trauma/Injury Risk: Absence of Trauma/Injury/Falls Description: Patient will demonstrate the desired outcomes. Outcome: Ongoing Goal: Knowledge of risk factors/behavior modification Description: Knowledge of risk factors/behavior modification for fall/injury prevention Outcome: Ongoing Problem: Mobility, Physical Impaired (Adult) Goal: Identify Related Risk Factors and Signs and Symptoms Description: Related risk factors and signs and symptoms are identified upon initiation of Human Response Clinical Practice Guideline (CPG) Outcome: Ongoing Goal: Enhanced Mobility Skills Description: Patient will demonstrate the desired outcomes by discharge/transition of care. Outcome: Ongoing Goal: Enhanced Functionality Ability Description: Patient will demonstrate the desired outcomes by discharge/transition of care. Outcome: Ongoing * Plan of Care - Carla Stiles OT - 01/13/2022 6:51 PM EDT Problem: OT - Dressing Goal: Upper Body Dressing Description: Pt will complete UE dressing task Edge of bed with moderate assistance for improved ability to complete self-care activities. Outcome: Ongoing Problem: OT - ADLs Goal: Grooming Description: Pt will complete grooming Edge of bed with minimal assistance for improved ability to safely complete ADLs. Outcome: Ongoing Problem: OT - Visual Scanning Goal: Visual Tracking Description: Pt will track past midline to right 2/3 completions during session with 75% cues, to attend to familiar object/person for ADL participation. Outcome: Ongoing Problem: OT - Cognition Goal: Cognition - Command following Description: Pt will follow 75% of 1 step commands during ADL task for improved safety and success at discharge destination. Outcome: Ongoing Problem: OT - Balance Goal: Balance - Seated Description: Pt will perform 10 minutes of ADL routine in sitting with minimal assistance and balance level of minimum assist to promote safety during self- care activities. Outcome: Ongoing Problem: OT - Transfers Goal: Transfers Toilet/Bedside Commode Description: Pt will transfer to/from toilet/BSC with moderate assistance for improved ability to safely complete ADLs. Outcome: Ongoing * Plan of Care - Emma Valles PT - 01/13/2022 2:06 PM EDT Problem: PT - Balance/Coordination/Neuro Re-Education Goal: Sitting Dynamic/Static Balance Description: Pt will perform seated balance tasks with moderate assistance to improve safety with seated tasks. Outcome: Ongoing Problem: PT - Transfers Goal: Supine <-> Sit Description: Pt will perform bed mobility with moderate assistance in order to improve functional mobility and safety. Outcome: Ongoing Goal: Sit <-> Stand Description: Pt will perform sit to/from stand transfers with moderate assistance and of 2 people with bilateral handheld assistance in order to improve functional mobility and safety. Outcome: Ongoing Goal: Squat-Pivot Description: Pt will perform squat/pivot transfer to/from bed/chair/commode with moderate assistance of 2 people with bilateral handheld assistance in order to improve functional mobility and safety. Outcome: Ongoing Goal: Strength/ROM Description: Pt will initiate muscle contractions for bilateral upper & lower extremity exercises with minimal assistance in order to improve strength, maintain ROM, necessary for functional mobility. Outcome: Ongoing * Plan of Care - GIRISH Solis - 01/13/2022 8:20 AM EDT Problem: BELT REPAIRER - Dysphagia Goal: PO Trial 3 Description: Patient will swallow trials of advancing solids demonstrating appropriate alertness, timely/effective mastication, bolus formation and oral bolus transit without overt clinical signs/symptoms of aspiration, across 1-3 sessions to determine readiness for diet advancement. Outcome: Ongoing Problem: BELT REPAIRER - Language Goal: Command Following Description: Patient will complete simple one-step commands (minimum of x10) to 90% success with mod cues as needed in order to improve direction following for functional gains in ability to participate more independently in care. Outcome: Ongoing Goal: Yes/No Response Description: Patient will answer moderate y/n questions (minimum of x10 related to current situation/environment, to 100% success with min cues, after 2-3 sessions in order to improve ability to answer medical questions/questions related to care. Outcome: Ongoing Problem: BELT REPAIRER - Cognition Goal: Orientation Goal Description: Patient will recall/implement use of orientation strategies, given min -no cues, to demonstrate improved awareness and insight as measured by achieving a 27/30 on The Orientation Log, across 1-2 sessions. Outcome: Ongoing * Nursing Notes - Marni Michel RN - 01/13/2022 12:05 AM EDT Patient reassessed, no changes since previous assessment unless otherwise documented in flowsheets. Marni Michel RN * Plan of Care - Marni Michel RN - 01/12/2022 8:17 PM EDT Problem: Patient Care Overview Goal: Plan of Care Review Outcome: Met This Shift Goal: Individualization & Mutuality Outcome: Met This Shift Problem: Patient Care Overview Goal: Discharge Needs Assessment Outcome: Ongoing Goal: Interdisciplinary Rounds/Family Conf Outcome: Ongoing Problem: Nutrition, Enteral (Adult) Goal: Signs and Symptoms of Listed Potential Problems Will be Absent, Minimized or Managed (Nutrition, Enteral) Description: Signs and symptoms of listed potential problems will be absent, minimized or managed by discharge/transition of care (reference Nutrition, Enteral (Adult) CPG). Outcome: Ongoing Problem: Fall/Trauma/Injury Risk (Adult) Goal: Fall/Trauma/Injury Risk: Absence of Trauma/Injury/Falls Description: Patient will demonstrate the desired outcomes. Outcome: Ongoing Goal: Knowledge of risk factors/behavior modification Description: Knowledge of risk factors/behavior modification for fall/injury prevention Outcome: Ongoing Problem: Mobility, Physical Impaired (Adult) Goal: Identify Related Risk Factors and Signs and Symptoms Description: Related risk factors and signs and symptoms are identified upon initiation of Human Response Clinical Practice Guideline (CPG) Outcome: Ongoing Goal: Enhanced Mobility Skills Description: Patient will demonstrate the desired outcomes by discharge/transition of care. Outcome: Ongoing Goal: Enhanced Functionality Ability Description: Patient will demonstrate the desired outcomes by discharge/transition of care. Outcome: Ongoing * Plan of Care - GIRISH Lester - 01/12/2022 3:00 PM EDT Problem: BELT REPAIRER - Dysphagia Goal: PO Trial 2 Description: Patient will accept various trials of liquid and solid consistencies (8-10 trials of each consistency) with no signs/symptoms of laryngeal penetration/aspiration and no respiratory complications to determine the readiness for diet advancement vs an instrumental swallow assessment, over the course of 1-2 session. Outcome: Ongoing * Plan of Care - Shelley Flores RN - 01/12/2022 1:04 PM EDT Problem: Patient Care Overview Goal: Plan of Care Review Outcome: Ongoing Goal: Individualization & Mutuality Outcome: Ongoing Goal: Discharge Needs Assessment Outcome: Ongoing Goal: Interdisciplinary Rounds/Family Conf Outcome: Ongoing * (ACP) Advance Care Planning - Radha Luke RN - 01/12/2022 12:58 PM EDT Advanced Care Planning Assessment HCPOA Agent(s): 1. n/a 2. n/a Legal Next of Kin: 1. Dex Patricia, spouse [phone] Advanced Care Planning Has the patient completed Advance Directives?: Not Completed Referral to Social Work for Advance Care Planning? : Patient Declines Legal Next of Kin Does the patient have a Guardian?: No Spouse: Yes Name and Contact information: dex patricia Significant Other [phone] Referral to Social Work to Identify Legal Next of Kin?: No Reviewed and Updated in Demographics? : Yes Comments: n/a * Plan of Care - Juno Monroy MD - 01/12/2022 7:21 AM EDT O/S PoC 66 y.o. female with hx alcohol abuse, anxiety, COPD, CHF, HTN, HLD, CVA and TIA, DVT, who presents to [facility] with SDH hematoma now s/p craniectomy with NSGY. Orthopaedics was consulted for chronic T12 compression fx. - Please reach out after patient is able to complete upright xr thoracolumbar so that we may complete a repeat exam and give final recs Juno Monroy MD Orthopaedic Surgery, PGY4 Pager #[phone] * Plan of Care - Becky Mcgowan RD - 01/11/2022 8:42 AM EDT Nutrition Recommendations and Plan of Care: 1. TF: Continue to advance 10 ml Q4 hours to Goal Vital AF 1.2 @ 60 ml/hr + 30 ml water flush Q6 hours to provide 1440 ml formula volume, 1728 kcal (31 kcal/kg admit wt), 108 g pro (2 g/kg admit wt) and 1287 ml free water/d. 2. Diet: NPO. Advancement per BELT REPAIRER. 3. RD to follow. * Plan of Care - Alon Best RN - 01/10/2022 11:22 PM EDT Problem: Nutrition, Enteral (Adult) Goal: Signs and Symptoms of Listed Potential Problems Will be Absent, Minimized or Managed (Nutrition, Enteral) Description: Signs and symptoms of listed potential problems will be absent, minimized or managed by discharge/transition of care (reference Nutrition, Enteral (Adult) CPG). Outcome: Ongoing Problem: Fall/Trauma/Injury Risk (Adult) Goal: Fall/Trauma/Injury Risk: Absence of Trauma/Injury/Falls Description: Patient will demonstrate the desired outcomes. Outcome: Ongoing Goal: Knowledge of risk factors/behavior modification Description: Knowledge of risk factors/behavior modification for fall/injury prevention Outcome: Ongoing Problem: Mobility, Physical Impaired (Adult) Goal: Identify Related Risk Factors and Signs and Symptoms Description: Related risk factors and signs and symptoms are identified upon initiation of Human Response Clinical Practice Guideline (CPG) Outcome: Ongoing Goal: Enhanced Mobility Skills Description: Patient will demonstrate the desired outcomes by discharge/transition of care. Outcome: Ongoing Goal: Enhanced Functionality Ability Description: Patient will demonstrate the desired outcomes by discharge/transition of care. Outcome: Ongoing * Nursing Notes - Ofe Contreras RN - 01/10/2022 3:58 PM EDT DHT inserted via R nares to 60cm with Cortrak guidance and air heard over epigastric area. 200ml instilled and tube advanced to 90cm. Secured with nasal bridle. Will obtain x-ray to confirm placement. * Plan of Care - GIRISH Childers - 01/10/2022 11:50 AM EDT Problem: BELT REPAIRER - Dysphagia Goal: PO Trial 2 Description: Patient will accept various trials of liquid and solid consistencies (8-10 trials of each consistency) with no signs/symptoms of laryngeal penetration/aspiration and no respiratory complications to determine the readiness for diet advancement vs an instrumental swallow assessment, over the course of 1-2 session. Outcome: Ongoing * Plan of Care - Chris Wood RN - 01/10/2022 11:42 AM EDT Problem: Patient Care Overview Goal: Plan of Care Review Outcome: Ongoing Goal: Individualization & Mutuality Outcome: Ongoing Goal: Discharge Needs Assessment Outcome: Ongoing Goal: Interdisciplinary Rounds/Family Conf Outcome: Ongoing * Treatment Plan - EMELY Mcintyre - 01/09/2022 8:49 PM EDT I have seen and examined the patient. She is resting with eyes closed. Opens to voice, briefly makes eye contact. Gaze midline. R eye edema. Able to tell me her birthday but does not answer other questions. FC x 4 weakly. Drain with serosanguinous output. Lungs diminished throughout, respirations unlabored. NSR on tele. Plan: recent cxr reviewed, no acute findings. Will monitor airway post- extubation . Vitals: 01/09/221999 BP: 113/59 Pulse: 90 Resp: (!) 28 Temp: 98.5 F (36.9 C) O2 Sat (%): 100 % (01/10 2000) O2 Device: nasal cannula (01/10 2000) Flow (L/min): 3 (01/10 2000) Oxygen Concentration (%): 40 (01/09 1800) EMELY Mcintyre 8:50 PM 01/09/22 * Plan of Care - Gina Cota RN - 01/09/2022 8:47 AM EDT Problem: Patient Care Overview Goal: Plan of Care Review Outcome: Ongoing Goal: Individualization & Mutuality Outcome: Ongoing Goal: Discharge Needs Assessment Outcome: Ongoing Goal: Interdisciplinary Rounds/Family Conf Outcome: Ongoing Problem: Ventilation, Mechanical Invasive (Adult) Goal: Signs and Symptoms of Listed Potential Problems Will be Absent, Minimized or Managed (Ventilation, Mechanical Invasive) Description: Signs and symptoms of listed potential problems will be absent, minimized or managed by discharge/transition of care (reference Ventilation, Mechanical Invasive (Adult) CPG). Outcome: Ongoing * Certification - Deborah Amador APRN-JAMES - 01/09/2022 1:49 AM EDT I certify that this patient requires inpatient services at this time. I anticipate the expected length of stay will include at least two midnights. Inpatient services are due to the following medicalconcerns SDH. Plans for post hospitalization care will [facility]. * Op Note - Lowell Bryant MD - 01/08/2022 6:43 PM EDT [facility] Operative Record Surgeon: Severo Jurado MD Burglar Alarm Operator: Lowell Bryant MD Pre-operative Diagnosis: Right subdural hematoma Post-Operative Diagnosis: same Procedure: 1.right sided Decompressive Craniectomy 2. Placement of Epidural Drain Anesthesia: GA EBL: Minimal Complications: none Findings: Massive Brain Shift and Compression secondary to acute subdural hematoma Clinical History: Luiza May is a 66 y.o. Female With a PMH of aspirin use, and alcoholism. Patient presented after being found down. Fround to have large right sided acute SDH with shift. Given her shift and acutehematoma, recommendation was to proceed to OR for evacuation. Her thrombocytopenia was corrected inOR with platelet administration. Procedure: The patient was brought into the operating room and put under general endotracheal anesthesia in the ER prior to arrival in OR. Once asleep, patient was positioned supine on the operating room table with a shoulder bump placed under the right side and the head placed in a horseshoe. Once this was done, the entire right side of the head was clipped of all hair and was then prepped and draped in sterile fashion. A large question joy-type trauma flap was planned. The skin incision was infiltratedwith lidocaine and prior to incision, appropriate antibiotics were given. A time-out was done by the resident, Dr. Bryant as this was an emergent case. The #10 blade was used and the skin was incised down to the bone with the incision made over midline. Tigre clips were applied for hemostasis. As the opening proceeded, Tigre clips were applied. The scalp was opened and a Bovie was used to cut through the temporalis fascia. Periosteal and minimal bovie cautery were used to elevate the flap and a fish hook, and a hemostat was used to retract the scalp of the musculocutaneous flap. Periosteal was done such that, a dissection was done down to the keyhole and was low enough so that the floor of the temporal was at the zygomatic arch for temporal decompression was located. We then proceeded to make bur holes using the plastic eye technician bit. A bur hole was made over the temporal bone. In addition, 1 was made at the keyhole. Another bur hole was made in the posterior parietal area, Once this was done, a curette as well as a [place] were used to adequately strip the dura and ensure that there would be enough room to pass the craniotome.Once this was done, the B1 footplate was used and a craniotomy was fashioned. The bone flap was elevated in a single piece and saved and stored in the bone freezer per protocol. After this was done, the dura was found to be minimally tense. Once hemostasis was obtained around the edges due to the bleeding of the middle meningeal artery, the dura was then opened carefully using Darwin's and tenotomy scissors and the dura was opened in a stellate fashion. The brain was found to be only minimally swollen, however there was a large amount of subdural blood, which we evacuated with plenty of irrigation and suction. The brain appeared generally healthy. Additional pieces of bone were taken using a [place]. The dura was opened further to accommodate this additional bony opening. To facilitate hemostasis, tack-up holes were made around the bony edges and the bone was outlined with Surgicel and gel foams and tack-up stitches were placed. Additionally, FloSeal was used around the area of the temporal fossa and bone wax was used on the bony edges as well. After multiple rounds of irrigation and appropriate hemostasis using bipolar where necessary on thedural edges and using Surgicel to line the edges of our craniotomy. Once this was done, and we feltwe had appropriate hemostasis, attention then turned towards closure. Closure consisted of placing a large piece of DuraMAtrix cut to size underneath the dura. It was tucked underneath the dural edges, and then the dura was flapped on top of this and a second piece of DuraGen was placed on top of the curyung dura. Then a drain was placed. This was a 10 english round PVC drain which was tunneled posteriorly with care to ensure that it would allow adequate drainage in the area of the temporal muscle. The scalp was then closed using inverted 2-0 stitches through the galea to approximate the skin edges and then the skin was closed with arturo. The drain was secured into place with a 2-0 nylon stitch. There were no complications to the procedure. There were no specimens that were sent. At the end of the procedure, patient remained intubated and was taken back to their neuro critical care bed.I, Dr. Severo Jurado, was present for the critical portions of the operation and Drs Jessy and Julissa were also immediately available for the remainder of the operation. Lowell Bryant MD, PGY7 Neurological Surgery Page [phone] with questions * Brief Op Note - Lowell Bryant MD - 01/08/2022 6:42 PM EDT Luiza Brown Yadira ([id number]) PRE OPERATIVE DIAGNOSIS Subdural hematoma [S06.5X9A] POST OPERATIVE DIAGNOSIS Post-Op Diagnosis Codes: * Subdural hematoma [S06.5X9A] PROCEDURE PERFORMED Procedure(s) (LRB): Right craniotomy/craniectomy for hematoma evacuation (Right) PRIMARY CLOSURE Yes INTRAOPERATIVE FINDINGS large R SDH hematoma, [facility] performed SURGEON Surgeon(s) and Role: * Severo Jurado MD - Primary ANESTHESIOLOGIST Anesthesiologist: Miguel Angel Kay MD PARKING LOT SIGNALER: Arnav Chin APRN-PARKING LOT SIGNALER Transcripter: MARY LOU López SURGICAL STAFF Wood Shingle Roofer: Yaritza Collins RN Resident Assisting: Rachel Castaneda MD; Lowell Bryant MD Kennel Helper: Panfilo Mensah COMPLICATIONS None ESTIMATED BLOOD LOSS 250 ml SPECIMENS No specimen sent * No specimens in log * Lowell Bryant MD January 08, 2022 6:42 PM * Nursing Notes - Yaritza Collins RN - 01/08/2022 6:27 PM EDT Bone flapped wrapped in a sterile fashion. Labeled and placed in the freezer bottom door shelf 1. * Nursing Notes - Yaritza Collins RN - 01/08/2022 4:58 PM EDT Rings placed in bag with patient chart Rings given to security documented in this [facility]07-26-2022 History of Present illness Narrative* Cheo Jack MD - 01/27/2022 12:57 PM EDT NEUROSURGERY PROGRESS NOTE: 01/27/22 S: NAEON O: PE: NAD AOx2 (name, place) PERRL EOMI FS TM FCx4 4/5 BUE 4/5 BLE SILT Incision c/d/i Temp: [97.8 F (36.6 C)-98.7 F (37.1 C)] 97.8 F (36.6 C) Pulse (Heart Rate): [92-104] 98 Resp Rate: [16-18] 16 BP: (107-133)/(53-63) 109/53 O2 Sat (%): [97 %-100 %] 100 % Ventilator/Non-Ventilator Mode: CPAP/PS Set Respiratory Rate/Release Rate: 16 PEEP (cm H2O): 6 Pressure Support (cmH2O): 10 O2 Sat (%): 100 % (01/27 1141) O2 Device: nasal cannula (01/27 121) Flow (L/min): 2 (01/27 1216) I/O last 3 completed shifts: In: 200 [P.O.:200] Out: 200 [Urine:200] ICP: No data recorded WBC/Hgb/Hct/Plts: 8.31/8.4/27.4/474 (01/27 0000) Na/K+/Phos/Mg/Ca: 143/3.4/4.0/1.7/-- (01/27 0000) Bun/Creat/Cl/CO2/Glucose: 9/0.67/103/30/91 (01/27 0000) A/P: Luiza May is a 66 y.o. female p/w SDH s/p R hemicraniectomy on 01/08/2022; cranioplasty 01/21 Neuro: neuro checks, PT/OT, post op CTH stable Cards: SBP<160 Resp: room air FEN/GI: DIET REGULAR PPX: SCDs, Pharm DVT ppx lovenox Dispo: [facility] pending Please page [phone] ([phone]) with questions. Active Problems: SDH (subdural hematoma) Anemia (Low HGB) Electrolyte disorder (K, Cl, or Na) Post-operative state Present on Admission: SDH (subdural hematoma) Anemia (Low HGB) Electrolyte disorder (K, Cl, or Na) * RUI Gaviria - 01/27/2022 12:24 PM EDT Social Work Final Discharge Plan and Transportation Final Discharge Planning Discharge Disposition: Inpatient Rehab Facility Services at Discharge: Residential, Occupational Therapy, Physical Therapy, Speech Therapy Community Agency Name(s) For Handoff: Shanti Jaramillo Name For Handoff: battery charger conveyor line Phone For Handoff: [phone] Fax For Handoff: [phone] Selected Continued Care - Admitted Since 01/08/2022 Destination Coordination complete. Service Provider Selected Services Address Phone Fax [facility] [address] [place] [phone] -- -- Plan Plan: Patient to discharge to inpatient rehab hospital Patient/Family In Agreement With Plan: yes Library Associate Called: Yes Name of Transport Company: Other (Comment) ([facility]) ETA of Ambulance: 01/27 at 5:30PM Transfer Mode: gurney Mode of Transfer: BLS, ambulance Accompanied By: EMS Transfer/Transport Equipment: copy of patient Records Patient medically stable for discharge per physician/medical team. SW confirmed with [facility] that they are able to accept the patient this date. Insurance pre- certification has been obtained. SW arrangedtransport as indicated above, ETA is 5:30-6pm. The patient has no specialized equipment needs for transportation. AVS/POONAM completed from a SW standpoint. SW updated the bedside RN, CCM, facility and patient/business office representative of the discharge plan and transport time. Patient/Disbursing Agent remain in agreement with the discharge plan. Bedside RN to call report and fax AVS/POONAM. Ambulance form left at the community assistant desk with a request for a printed transfer report. Discharge Instruction for Bedside RN: 1. Confirm the Ambulatory Order is in the POONAM. 2. Print the POONAM and AVS. 3. Print the Discharge Summary for facilities (if available). 4. Fax POONAM, AVS and Discharge Summary (when applicable) to agency or facility. 5. Call the agency or facility for report. RUI Tiwari Occ Therapist [facility] 8th floor [phone] * Sinai Saenz OT - 01/26/2022 3:30 PM EDT Acute Occupational Therapy Treatment Prior to Admission AM-PAC Score: PRIOR LEVEL AM-PAC Activity Raw Score: 24 PRIOR LEVEL AM-PAC Mobility Raw Score: 24 Current AM-PAC score(s): CURRENT AM-PAC Activity Raw Score: 16 Based on the above AM-PAC score(s), and OT clinical judgment, discharge destination recommendation is: Inpatient Rehab Facility Supporting Factors (would benefit from skilled therapy services): Patient status is anticipated to be appropriate to tolerate inpatient rehab therapy requirements at time of discharge from acute care, Impaired functional status, Decreased strength, Impaired balance, Decreased endurance, Impaired self-care abilities, Impaired cognitive status, Assistance needed with functional mobility, Fall risk,Recent decline in functional mobility, Recent decline in self-care abilities, Recent decline in cognitive function, Patient has appropriate assistance and setup at home for ultimate discharge to homeonce patient has progressed functionally following inpatient rehab Mobility equipment available at home: none used ADL equipment available at home: none Equipment recommendations for discharge: 2 wheeled walker, raised toilet seat, tub bench Current therapy frequency recommendation(s) in acute: 5 times a week Precautions and Weightbearing Status: OT Existing Precautions/Restrictions: fall, supplemental oxygen (Exit alarm.) Patient Safety Communication Prior to Visit: Nursing Respiratory Status O2 Device: nasal cannula Flow (L/min): 2 Subjective: Pt reported, I'll do whatever you want me to do... I know people tell me I'm getting better, but it's just hard to feel that way. Pain: General Pain Documentation (Adult, OB, Peds) Presence of Pain: complains of pain/discomfort Pain Location: head, headache DVPRS (Defense and Veterans Pain Rating Scale) DVPRS: Rest: 5- moderate pain DVPRS: Activity: 7- severe pain Objective/Observation: Vitals/Vitals Responses to Treatment: With activity participation, pt reported mild-moderate dizziness and sensation of heart racing. Pt's heart rate fluctuating between 110s-120s, returning to 90swith seated rest breaks. Pt's oxygen saturation greater than 95% throughout duration. Therapist educated pt on use of deep breathing techniques. With seated rest breaks, pt reported improvement in symptoms. RN notified/awrae. Vision Screen Currently wearing corrective lenses: No Clinical Observations: This date, pt appears to continue to present with left visual deficits (anticipate peripheral field cut). Visual Impairments Observed?: Yes Speech Speech: no gross deficits noted Hearing Hearing: no gross deficits noted Cognition Overall Cognitive Status: Impaired (Deficits in higher-level cognition present.) Arousal/Alertness: Appropriate responses to stimuli Orientation Level: Oriented to person, Oriented to place, Oriented to time Following Commands: Follows one step commands with increased time, Follows one step commands with repetition Safety Judgment: Decreased awareness of need for assistance, Decreased awareness of need for safety Awareness of Errors: Assistance required to identify errors made, Assistance required to correct errors made Deficits: Decreased awareness of deficits Attention Span: Attends with cues to redirect Memory: Decreased short term memory Problem Solving: Assistance required to identify errors made, Assistance required to generate solutions, Assistance required to implement solutions Cognition Comments: Mild confusion/impulsivity; Overall, decreased insight into deficits/safety awareness and impairments in executive functioning abilities. ADL Assessment/Intervention: Grooming Assistance: Contact guard assist Grooming Location: standing at sink Grooming Deficit: Wash/dry face, Oral care, Problem solving, Follows safety/precautions, Balance, Retrieval of items, Manipulation of items, Generalized weakness, Activity tolerance, Increased time to complete, Other (Comment) (Vision.) Grooming Skilled Rationale (Verbal/Tactile/Visual/Demonstration): Setup, Cues for increased safety,Technique of activity, Cues for cognitive deficit, Facilitate postural control, Facilitate positioning Grooming Intervention/Details: Pt with increased difficulty visualizing ADL items/tools located on left side of sink, requiring increased cues to appropriately visually scan environment for retrieval. Pt also with increased difficulty manipulating ADL tools/equipment (especially toothpaste cap), pre senting with global fine motor coordination/precision deficits, but especially in the left hand. Ptalso presenting with mild impairments in overall processing/sequencing of tasks and requiring CGA for balance maintenance. Extremity Assessments: See OT Evaluation flowsheet for Extremity Measurement updates. Balance: Sitting Balance Static Sitting-Level of Assistance: Standby Dynamic Sitting-Level of Assistance: Contact guard Sitting Balance Skilled Intervention/Details: Seated EOB for about 4-5 minutes with minimal to no difficulty, mostly cueing for safety. Standing Balance Static Standing-Level of Assistance: Contact guard Dynamic Standing-Level of Assistance: Minimum assistance Standing Balance Skilled Intervention/Details: Standing for about 6-8 minutes at sink while grooming, mostly requiring cues for maintenance of upright posture and for overall safety. Mobility Assessment/Intervention: Supine to Sit Mobility [place] Level: Supine->Sit: stand-by assist Bed Features/Set-up: Supine->Sit: Head of bed elevated, Use of bed rail Skilled Rationale: Cues for increased safety, Technique of activity, Tactile cues, Verbal cues Skilled Intervention/Details: Supine->Sit: Mostly cueing for safety, mildly increased time/effort for performance. Transfer Assessment/Intervention: Sit to Stand Transfer [place] Level: Sit->Stand: contact guard assist (x 1 trial from EOB; x 11 trials from bedside chair.) Assistive Device: Sit->Stand: gait belt, 2 wheeled walker (Non-skid socks; Trial from EOB and trial to ambulate to sink completed with 2 wheeled walker, otherwise, no DME utilized for transfers.) Skilled Rationale: Cues for increased safety, Technique of activity, Tactile cues, Verbal cues, Hand placement Skilled Intervention/Details: Sit->Stand: Mostly cueing for hand placement on walker and for overall safety, mildly increased time/effort to assume a full upright posture. Stand to Sit Transfer [place] Level: Stand->Sit: contact guard assist Assistive Device: Stand->Sit: gait belt, 2 wheeled walker (Non-skid sock; Trial from EOB and trial to ambulate to sink completed with 2 wheeled walker, otherwise, no DME utilized for transfers.) Skilled Rationale: Cues for increased safety, Technique of activity, Tactile cues, Verbal cues, Hand placement Bed-Chair Transfer [place] Level: Bed<->Chair: minimum assist (75% patient effort) Assistive Device: Bed<->Chair: gait belt, 2 wheeled walker (Non-skid socks.) Skilled Rationale: Cues for increased safety, Technique of activity, Tactile cues, Verbal cues, Hand placement, Sequencing, Positioning Skilled Intervention/Details: Bed<->Chair: Mostly cueing for efficient/safe management of walker/body positioning within walker and to properly align hips to bedside chair; Side-stepping towards the right. Functional Mobility: Functional Mobility [place] Level: Functional Mobility/Gait: (CGA-minimal assistance) Assistive Device: Functional Mobility/Gait: 2 wheeled walker, gait belt (Non- skid socks.) Functional Mobility Distance: (Few feet forward from bedside chair to sink within room and then back to bedside chair after prolonged stand.) Skilled Intervention/Details - Functional Mobility/Gait: Mild-moderate unsteadiness, but no LOB experienced; Mild SOB; Pt mostly requiring cues for efficient/safe walker management and body positioning within walker, as well as cues for visual limitations. Outcome Score(s): CURRENT AM-PAC Daily Activity Inpatient Short Form Putting on/Taking Off Lower Body Clothin - A Lot of Assistance Bathin - A Lot of Assistance Toiletin - A Lot of Assistance Putting on/Taking Off Upper Body Clothin - A Little Assistance Groomin - A Little Assistance Eatin - No Assistance CURRENT AM-PAC Activity Raw Score: 16 CURRENT AM-PAC Activity Functional Limitation/Modifier: 53.32% Currently Impaired in Daily Activity- CK PROJECTED AM-PAC Activity Raw Score: 21 PROJECTED AM-PAC Activity Functional Limitation/Modifier: 32.79% - CJ Interventions: Intervention 1 Intervention Name: Pt participated in various UE therapeutic exercises while seated in bedside chair with back supported and LEs reclined. Specifically, pt completed 10 reps (each UE; each movement) of the following UE movements: shoulder flexion, shoulder abduction, shoulder internal/external rotation, elbow extension/flexion, forearm pronation/supination, wrist extension/flexion, wrist circumduction, wrist ulnar/radial deviation, and grasp/release exercises. Overall, pt demonstrated adequate UE ROM/strength/coordination, but decreased endurance/activity tolerance (left UE deficits appear greater than right UE deficits). Pt educated on the importance of continued UE therapeutic exercise p articipation daily in order to encourage improvements in UE ROM/strength/endurance/coordination necessary for participation in functional activities and to prevent further deconditioning while in thehospital. Pt verbalized understanding. Assessment & Plan: Pt is demonstrating fair plus/fair progress in occupational therapy goals this date, primarily in bed mobility, functional transfers, seated balance, static standing balance, and UE ROM/strength. However, pt's barriers to discharge and overall inhibitors in ADL/IADL/functional transfer performance/independence include pt's deficits in dynamic standing balance, functional mobility, UE coordination/precision, vision, and cognition. Pt would benefit from continued acute occupational therapy services prior to discharge to address noted deficits and progress towards achieving increased independence in occupational performance. Patient Instruction/Education this session: Pt educated on the importance of EOB/OOB activities in improving independence in self-care/functional activity participation and on the role of OT/OT plan of care. Plan for next session: Therapist to address further fine motor coordination/precision, vision, and ADL performance. Acute OT Goals Plan of Care by Sinai Saenz OT at 01/26/2022 3:31 PM Version 1 of 1 Problem: OT - ADLs Goal: Grooming Description: Pt will complete grooming standing Mod I for improved ability to safely complete ADLs. Outcome: Ongoing Problem: OT - Visual Scanning Goal: Visual Tracking Description: Pt will track past midline to right 2/3 completions during session with 75% cues, to attend to familiar object/person for ADL participation. Outcome: Ongoing Problem: OT - Cognition Goal: Cognition - Command following Description: Pt will follow 75% of 1 step commands during ADL task for improved safety and success at discharge destination. Outcome: Ongoing Problem: OT - Balance Goal: Balance - Seated Description: Pt will perform 10 minutes of ADL routine in sitting with minimal assistance and balance level of minimum assist to promote safety during self- care activities. Outcome: Ongoing OT treatment consisted of ADL retraining, balance training, bed mobility training, cognitive training, energy conservation/endurance training, fine motor coordination training, motor coordination training, range of motion, strengthening, transfer training and vision training to work and progress tow ards above goal(s). Treating Therapist: Sinai Saenz OT Additional Details: Co-evaluation/co-treatment performed?: No simultaneous skilled care performed I used facemask, protective eye shield, and gloves in today's patient interaction. Patient location at end of session: chair Alarms on at end of session: chair alarm and RN aware Needs in reach. Time In: 1505 Time Out: 1530 Total Visit Time: 25 minutes Total Treatment Time (skilled, billable minutes): 25 minutes Upon discontinuation of Acute Care Occupational Therapy Services or patient discharge from the hospital this note represents the current Occupational Therapy Discharge Summary. * RUI Gaviria - 01/26/2022 8:50 AM EDT Placement Plan Expected Discharge Date: Referred Level of Care: [facility] Patient Choice for Post-Acute Providers Resumption of care?: No Establishing care?: Yes Level of care for choice: SNF Preferred geographic region: Discussed and honored Source of list: Aidin List was provided to: Patient, Significant other, Brother Method of delivery: In Person Is the provider part of a joint venture or have a financial relationship with discharging hospital?: No Barriers: insurance authorization, transportation Current Referrals and Status 1. [facility] ([facility]) RESERVED [employer] [employer] [facility] spoke with IPR liaison who confirmed that precert remains pending. IPR request RAPID COVID testwithin 24 hours of admission. [facility] rescheduled transport with [facility] for soonest available Sunday 01/28 at 10:45-11am with [facility]. ADDENDUM: [employer] informed that precert was approved. [employer] contacted numerous transport companies. Soonest available is Saturday 01/27 at 5:30PM with [facility]. RUI Tiwari Occ Therapist [facility] 8th floor [phone] * RUI Perez - 01/25/2022 8:36 AM EDT SW spoke with patients daughter on the phone after receiving a chat that the Amenea, patients daughter wanted to talk about her mothers discharge plan. Ameena agrees with discharge to [facility].We are still pending percert. Ivonne Monroe LMS Occ Therapist Addendum: Still no precert. Left message for Takotna at [facility] in [place]. * Rakesh Ta MD - 01/25/2022 6:49 AM EDT NEUROSURGERY PROGRESS NOTE: 01/26/22 S: TORIE O: PE: NAD AOx2 (name, place) PERRL EOMI FS TM FCx4 4/5 BUE 4/5 BLE SILT Incision c/d/i Temp: [97.2 F (36.2 C)-98.3 F (36.8 C)] 98 F (36.7 C) Pulse (Heart Rate): [88-110] 89 Resp Rate: [16] 16 BP: (115-133)/(53-62) 122/57 O2 Sat (%): [96 %-99 %] 99 % Ventilator/Non-Ventilator Mode: CPAP/PS Set Respiratory Rate/Release Rate: 16 PEEP (cm H2O): 6 Pressure Support (cmH2O): 10 O2 Sat (%): 99 % (01/26 226) I/O last 3 completed shifts: In: 1440 [P.O.:1440] Out: 850 [Urine:850] ICP: No data recorded WBC/Hgb/Hct/Plts: 8.04/8.2/26.8/459 (01/26 238) Na/K+/Phos/Mg/Ca: 143/4.2/4.6/1.7/-- (01/26 238) Bun/Creat/Cl/CO2/Glucose: 8/0.58/102/34/90 (01/26 238) A/P: Luiza Brown Yovannyjavad is a 66 y.o. female p/w SDH s/p R hemicraniectomy on 01/08/2022; cranioplasty 01/21 Neuro: neuro checks, PT/OT, post op CTH stable Cards: SBP<160 Resp: room air FEN/GI: DIET REGULAR PPX: SCDs, Pharm DVT ppx lovenox Dispo: IPR pending Please page [phone] ([email or web address]) with questions. Active Problems: SDH (subdural hematoma) Anemia (Low HGB) Electrolyte disorder (K, Cl, or Na) Present on Admission: SDH (subdural hematoma) Anemia (Low HGB) Electrolyte disorder (K, Cl, or Na) * RUI Perez - 01/24/2022 1:26 PM EDT Spoke with Takotna ([phone]) at [facility]. Still pending precert. Ivonne Monroe LMS Occ Therapist * Joy Rawls Jr., MD - 01/24/2022 7:01 AM EDT NEUROSURGERY PROGRESS NOTE: 01/24/22 S: naeo,doing well, asking to go home O: PE: awake Ox3 PERRL EOMI FS FC x4 R side 4/5 LUE 4/5 LLE 4/5 Pain limited exam Incision cdi Temp: [98.4 F (36.9 C)-99.2 F (37.3 C)] 98.6 F (37 C) Pulse (Heart Rate): [101-115] 115 Resp Rate: [16-17] 16 BP: (104-151)/(56-72) 124/58 O2 Sat (%): [91 %-99 %] 91 % Weight: [63.3 kg (139 lb 8 oz)] 63.3 kg (139 lb 8 oz) Ventilator/Non-Ventilator Mode: CPAP/PS Set Respiratory Rate/Release Rate: 16 PEEP (cm H2O): 6 Pressure Support (cmH2O): 10 O2 Sat (%): 91 % (07/23 0602) O2 Device: nasal cannula (01/23 2200) Flow (L/min): 1 (01/23 2200) I/O last 3 completed shifts: In: 350 [P.O.:350] Out: 1020 [Urine:1020] ICP: No data recorded WBC/Hgb/Hct/Plts: 10.98/8.1/26.5/459 (01/24 559) Na/K+/Phos/Mg/Ca: 139/3.8/3.6/1.7/-- (01/24 559) Bun/Creat/Cl/CO2/Glucose: 7/0.50/101/31/99 (01/24 559) Imaging: repeat CT head showed stable appearance A/P: Luiza May is a 66 y.o. female p/w SDH s/p R hemicraniectomy on 01/08/2022; cranioplasty 01/21 Neuro: neuro checks, PTOT, post op head CT done Cards: SBP<160 Resp: per ICU, wean O2 as able ID: no acute issues FEN/GI: Nutrition, PO improved. ADAT PPX: SCDs, Lovenox Dispo: IPR pending Please page [email or web address] ([email or web address]) with questions. Active Problems: SDH (subdural hematoma) Anemia (Low HGB) Electrolyte disorder (K, Cl, or Na) Present on Admission: SDH (subdural hematoma) Anemia (Low HGB) Electrolyte disorder (K, Cl, or Na) * RUI Gaviria - 01/23/2022 1:22 PM EDT Placement Plan Expected Discharge Date: Referred Level of Care: IPR Patient Choice for Post-Acute Providers Resumption of care?: No Establishing care?: Yes Level of care for choice: SNF Preferred geographic region: Discussed and honored Source of list: Aidin List was provided to: Patient, Significant other, Brother Method of delivery: In Person Is the provider part of a joint venture or have a financial relationship with discharging hospital?: No Barriers: insurance authorization, transportation Current [facility] and Status [facility] Precert remains pending. IPR request RAPID COVID test within 24 hours of admission. [facility] arranged transport for Friday 01/26 at 11-12pm with [facility]. Melina HANKS, RUI Occ Therapist [facility] 8th floor [phone] For Social Work assistance for the weekend, please contact for assistance as needed (8:00am - 4:30pm): [facility]: [phone] Bird: [phone] Bernardo: [phone] Marcelo/MICU/PCU Jeet: [phone] * Shahrzad Corrales, CITLALI - 01/23/2022 9:38 AM EDT NUTRITION FOLLOW UP Nutrition Recommendations and Plan of Care: 1. Encourage po intake. Pt not currently meeting nutrition needs with po intake 2. Pt declined ONS 3. Monitor weight, labs, skin, and po intake 4. RD will continue to follow during admission Luiza May is a 66 y.o. female p/w SDH s/p R hemicraniectomy on 01/08/2022; cranioplasty 01/21 Diet Order: Current Diet Orders Procedures DIET REGULAR Standing Status: Standing Number of Occurrences: 1 Nutrition History: Pt with DHT and tube feedings From 01/11 to 01/19. Diet advanced to Regular on 01/19. Intakes documented below. Met with patient at bedside. Pt denies appetite/intake or weight changes CHRO. Dislikes Ensures and wants them discontinued. Pt would like vanilla ice cream. Otherwise, declined intervention. Requested a new standing weight from nursing given weights ranging from 120s- 150s during admission. Po intakes below: 01/22: 25% breakfast 01/21: no meals documented 01/20: 25% dinner (half green beans, 2 bites chicken, one bite cheesy potatoes); 25% lunch (half chicken salad sandwhich, few bites of soup); <25% breakfast (3 bites bananna, 120ml brianda. Milk); snacks (donuts, soda, brianda milk, applesauce with meds) 01/19: no dinner documented, 0% lunch, 25% breakfast Ht: 63 Wt: 63.9kg IBW:52.3kg %IBW: 122% BMI: 24.96 kg/m Weight History: Wt's have fluctuated significantly during admission and over past 3 months. Unclearif this is due to inaccurate weights or true wt changes. Pt denied wt changes. Wt Readings from Last 10 Encounters: 01/17/22 63.9 kg (140 lb 14.4 oz) 01/15/22 67.4 kg (148 lb 11.2 oz) 01/14/22 61.2 kg (134 lb 14.7 oz) 01/13/22 63.7 kg (140 lb 6.9 oz) 01/12/22 60.9 kg (134 lb 4.2 oz) 01/11/22 58.9 kg (129 lb 13.6 oz) 01/09/22 55.2 kg (121 lb 11.1 oz) 01/09/22 55.2 kg (121 lb 11.1 oz) 01/08/22 69.4 kg (153 lb) 12/23/21 11/03/21 10/28/21 09/15/21 07/01/21 02/04/21 62.2 kg (138 lb) 63 kg (139 lbs) 69.5 kg (153 lb) 67 kg (147 lb) 68 kg (150 lbs) 71.2 kg (157 lbs) Per care everywhere. Wt had been stable around 150 lbs until October. Rapid wt loss noted in early November. Has continued to lose wt since. Admission wt indicates a wt loss of 32 lbs (21% in 3 months). Scheduled Meds Include: ygvluyjeeq-denxuuqyvorfej-Wyhtpswjci 1 puff Inhalation BID DULoxetine 60 mg Oral Daily enoxaparin 40 mg Subcutaneous Q24H escitalopram 10 mg Oral Daily melatonin 3 mg Oral QHS QUEtiapine 25 mg Oral QHS senna 8.6 mg Oral Daily Or senna 8.6 mg Per NG tube Daily [Held by provider] Vital AF 1.2 Kelvin 90 mL/hr Nasogastric QHS Labs reviewed: Lab Results Component Value Date WBC 10.90 01/23/2022 SODIUM 143 01/23/2022 POTASSIUM 3.8 01/23/2022 CHLORIDE 105 01/23/2022 CO2 30 01/23/2022 BUN 8 01/23/2022 CREATSERUM 0.54 01/23/2022 CALCIUM 7.7 (L) 01/08/2022 PHOSPHORUS 2.9 01/23/2022 MAGNESIUM 1.8 01/23/2022 GLUCOSE 92 01/23/2022 No results found for: ALT, AST, LDH, ALKPHOS, BILITOTAL, BILIDIRECT Lab Results Component Value Date TRIG 114 01/08/2022 GI: hypoactive bowel sounds; Last BM 01/20 Net I/O: +5564 mL since admission Skin: Nacho Score: 16; Edema- none Estimated Nutrition Needs: Wt used: 55 kg, admit wt Estimated Kcal Needs: 0902-8707 (25-30 kcal/kg admit wt) Estimated Pro Needs: 80-110 (1.5-2 g/kg admit wt) Estimated fluid needs: 7433-3334 (30-35 ml/kg admit wt) Malnutrition Diagnosis: Indications of Malnutrition: Unable to assess- unable to obtain clear weight history, new standing wt requested. based on the AND/ASPEN Malnutrition Criteria [address], LD Registered Dietitian Pager # [phone] 01/23/22 Please note I am providing cross coverage for this day. For primary Dietitian contact information or up to date coverage please see [employer] schedule for Dietitian Restaurant Floor Manager for the appropriate unit for Wednesday-Wednesday coverage or Dietitian Weekends/Holidays Schedule for weekend and holiday coverage. * Cheo Jack MD - 01/23/2022 7:22 AM EDT NEUROSURGERY PROGRESS NOTE: 01/23/22 S: naeo,doing well O: PE: awake Ox3 PERRL EOMI FS FC x4 R side 4/5 LUE 4/5 LLE 4/5 Pain limited exam Incision cdi Temp: [98.2 F (36.8 C)-99.7 F (37.6 C)] 98.8 F (37.1 C) Pulse (Heart Rate): [101-120] 114 Resp Rate: [16-18] 16 BP: (100-143)/(52-70) 135/70 O2 Sat (%): [97 %-100 %] 98 % Ventilator/Non-Ventilator Mode: CPAP/PS Set Respiratory Rate/Release Rate: 16 PEEP (cm H2O): 6 Pressure Support (cmH2O): 10 O2 Sat (%): 98 % (01/23 600) O2 Device: nasal cannula (01/22 2050) Flow (L/min): 1 (01/22 2050) I/O last 3 completed shifts: In: 1780.8 [P.O.:660; I.V.:1000.8; IV Piggyback:120] Out: 1325 [Urine:1325] ICP: No data recorded WBC/Hgb/Hct/Plts: 10.90/7.7/26.3/399 (01/23 600) Na/K+/Phos/Mg/Ca: 143/3.8/2.9/1.8/-- (01/23 600) Bun/Creat/Cl/CO2/Glucose: 8/0.54/105/30/92 (01/23 600) Imaging: repeat CT head showed stable appearance A/P: Luiza May is a 66 y.o. female p/w SDH s/p R hemicraniectomy on 01/08/2022; cranioplasty 01/21 Neuro: neuro checks, PTOT, post op head CT done Cards: SBP<160 Resp: per ICU, wean O2 as able ID: no acute issues FEN/GI: Nutrition, PO improved. ADAT PPX: SCDs, Lovenox Dispo: IPR pending Please page [email or web address] ([email or web address]) with questions. Active Problems: SDH (subdural hematoma) Anemia (Low HGB) Electrolyte disorder (K, Cl, or Na) Present on Admission: SDH (subdural hematoma) Anemia (Low HGB) Electrolyte disorder (K, Cl, or Na) * Cheo Jack MD - 01/22/2022 9:32 PM EDT NEUROSURGERY PROGRESS NOTE: 01/22/22 S: naeo,doing well O: PE: awake Ox3 PERRL EOMI FS FC x4 R side 4/5 LUE 4/5 LLE 4/5 Pain limited exam Incision cdi Flap soft Temp: [98.2 F (36.8 C)-99.7 F (37.6 C)] 99.7 F (37.6 C) Pulse (Heart Rate): [101-119] 119 Resp Rate: [16-24] 16 BP: (100-143)/(51-60) 143/60 O2 Sat (%): [96 %-100 %] 100 % Ventilator/Non-Ventilator Mode: CPAP/PS Set Respiratory Rate/Release Rate: 16 PEEP (cm H2O): 6 Pressure Support (cmH2O): 10 O2 Sat (%): 100 % (01/22 1933) O2 Device: nasal cannula (01/22 1546) Flow (L/min): 1 (01/22 1546) I/O last 3 completed shifts: In: 3577.2 [P.O.:1270; I.V.:1947.2; IV Piggyback:360] Out: 1075 [Urine:1075] ICP: No data recorded WBC/Hgb/Hct/Plts: 13.30/8.6/29.3/376 (01/22 58-01/22 841) Na/K+/Phos/Mg/Ca: 141/4.0/4.2/1.9/-- (01/22 58) Bun/Creat/Cl/CO2/Glucose: 12/0.61/107/29/89 (01/22 58) Imaging: repeat CT head showed stable appearance A/P: Luiza May is a 66 y.o. female p/w SDH s/p R hemicraniectomy on 01/08/2022; cranioplasty 01/21 Neuro: neuro checks, PTOT, post op head CT done Cards: SBP<160 Resp: per ICU, wean O2 as able ID: no acute issues FEN/GI: Nutrition, PO improved. ADAT PPX: SCDs, Lovenox Dispo: pending PTOT Please page [email or web address] ([email or web address]) with questions. Active Problems: SDH (subdural hematoma) Anemia (Low HGB) Electrolyte disorder (K, Cl, or Na) Present on Admission: SDH (subdural hematoma) Anemia (Low HGB) Electrolyte disorder (K, Cl, or Na) * RUI Gaviria - 01/22/2022 3:54 PM EDT Placement Plan Expected Discharge Date: Referred Level of Care: IPR Patient Choice for Post-Acute Providers Resumption of care?: No Establishing care?: Yes Level of care for choice: SNF Preferred geographic region: Discussed and honored Source of list: Aidin List was provided to: Patient, Significant other, Brother Method of delivery: In Person Is the provider part of a joint venture or have a financial relationship with discharging hospital?: No Barriers: medical stability, insurance authorization, transportation Current [facility]errals and Status 1. [facility] [employer] sent clinical updates to IPR via [place]. Patient in agreement with IPR location as first choice [facility] was not available. IPR to initiate precert. [employer] to continue following. RUI Tiwari Occ Therapist [facility] 8th floor [phone] * Rosalia Figueroa OT - 01/22/2022 11:47 AM EDT Acute Occupational Therapy Treatment Prior to Admission AM-PAC Score: PRIOR LEVEL AM-PAC Activity Raw Score: 24 PRIOR LEVEL AM-PAC Mobility Raw Score: 24 Current AM-PAC score(s): CURRENT AM-PAC Activity Raw Score: 18 Based on the above AM-PAC score(s), and OT clinical judgment, discharge destination recommendation is: Inpatient Rehab Facility Barriers to discharge home: Patient needs assistance with functional mobility, Patient needs assistance with ADLs Supporting Factors (would benefit from skilled therapy services): Patient status is anticipated to be appropriate to tolerate inpatient rehab therapy requirements at time of discharge from acute care, Impaired functional status, Decreased strength, Impaired balance, Decreased endurance, Impaired self-care abilities, Impaired cognitive status, Assistance needed with functional mobility, Fall risk,Recent decline in functional mobility, Recent decline in self-care abilities, Recent decline in cognitive function, Patient has appropriate assistance and setup at home for ultimate discharge to homeonce patient has progressed functionally following inpatient rehab Mobility equipment available at home: none used ADL equipment available at home: none Equipment recommendations for discharge: 2 wheeled walker, wheelchair, bedside commode, shower chair Current therapy frequency recommendation(s) in acute: 5 times a week Precautions and Weightbearing Status: OT Existing Precautions/Restrictions: fall, supplemental oxygen (s/p cranioplasty) Patient Safety Communication Prior to Visit: Nursing Current brace/orthoses: (s/p cranioplasty) Lines/Tubes/Drains (Rehab Status): Telemetry Respiratory Status O2 Device: nasal cannula Flow (L/min): 1 Subjective: Why am I here? What are my restrictions? What are the steps can I take to get better? Pain: General Pain Documentation (Adult, OB, Peds) Presence of Pain: complains of pain/discomfort Pain Location: head DVPRS (Defense and Veterans Pain Rating Scale) DVPRS: Rest: 7- severe pain DVPRS: Activity: 8- severe pain Objective/Observation: Vitals/Vitals Responses to Treatment: HR mostly 110-130 while standing edge of sink, HR up to 139 in standing and pt cued to take seated rest break (recovers to upper 120's in seated) - RN made awareof elevated HR during session Cognition Overall Cognitive Status: Impaired Arousal/Alertness: Delayed responses to stimuli Orientation Level: Oriented to person (states date as [address] as [facility] , askes why she is here and what she can do to get better (re-oriented/re-educated on medical situation)) Following Commands: Follows one step commands with increased time, Follows one step commands with repetition Safety Judgment: Decreased awareness of need for assistance, Decreased awareness of need for safety Awareness of Errors: Assistance required to identify errors made, Assistance required to correct errors made, Decreased awareness of errors Deficits: Decreased awareness of deficits Attention Span: Attends with cues to redirect Memory: Decreased terminal superintendent memory, Decreased short term memory Problem Solving: Assistance required to identify errors made, Assistance required to generate solutions, Assistance required to implement solutions Cognition Comments: Motivated; decreased memory, safety awareness, problem solving, and insight to deficits - cognition appears to be improving as compared to previous OT sessions ADL Assessment/Intervention: ADLs: Eating Assistance: Independent Eating Intervention/Details: Pt drinking from cup at end of session Indep Grooming Assistance: Contact guard assist Grooming Location: standing at sink Grooming Deficit: Activity tolerance, Increased time to complete, Generalized weakness, Pain, Balance, Retrieval of items, Wash/dry face, Oral care Grooming Skilled Rationale (Verbal/Tactile/Visual/Demonstration): Facilitate positioning, Supervision, Standing with assistive device Grooming Intervention/Details: Pt stood sinkside to brush teeth and wash face w/ cue only to initiate washing of face; pt CGA for balance w/ unilateral UE support on sink during task. Bathing Assistance: Minimal Bathing Location: seated at sink, standing at sink Bathing Deficit: Increased time to complete, Activity tolerance, Generalized weakness, Balance, Wash/Dry Back, Wash/Dry Buttocks, Retrieval of items, Problem solving, Sequencing Bathing Skilled Rationale (Verbal/Tactile/Visual/Demonstration): Facilitate positioning, Facilitatepostural control, Technique of activity, Cues for cognitive deficit, Cues for increased safety, Supervision Bathing Intervention/Details: Pt stood sinkside w/ CGA at RW to wash UB and maame area, attempting to wash bottom but needing assist for thoroughness. Pt cued to sit down for LB bathing for safety, ptable to complete with cues for compensatory tech (figure 4). Pt benefiting from Mod cues overall for safety, task initiation, and sequecing. UE Dressing Assistance: LE Dressing Assistance: Minimal LE Dressing Location: seated in chair LE Dressing Deficit: Increased time to complete, Activity tolerance, Pain, Retrieval of items LE Dressing Skilled Rationale (Verbal/Tactile/Visual/Demonstration): Facilitate positioning, Supervision, Technique of activity, Cues for increased safety LE Dressing Intervention/Details: Pt sat on BSC to doff/don B socks w/ Min A for assist to don L sock d/t pt having difficulty understanding motor command for figure 4 position; pt able to don B socks using figure 4 after addtl education/demonstration Toilet Assistance: Toileting Intervention/Details: Pt attempting to void BM while on BSC but unable. Extremity Assessments: See OT Evaluation flowsheet for Extremity Measurement updates. Balance: Sitting Balance Static Sitting-Level of Assistance: Standby Dynamic Sitting-Level of Assistance: Contact guard Skilled Rationale: Positioning Sitting Balance Skilled Intervention/Details: Pt sat on BSC for dynamic LB bathing tasks w/ SBA Standing Balance Static Standing-Level of Assistance: Contact guard Dynamic Standing-Level of Assistance: Contact guard Standing-Balance Support: Gait belt, 2 wheeled walker Skilled Rationale: Positioning, Hand placement, Verbal cues, Technique of activity Standing Balance Skilled Intervention/Details: pt stood sinkside ~10 minutes before seated rest break for g/h/bathing w/ CGA w/ unilateral UE support at either sink or RW during task. Mobility Assessment/Intervention: Sit to Supine Mobility [place] Level: Sit->Supine: contact guard assist Bed Features/Set-up: Sit->Supine: Flat Skilled Rationale: Positioning Transfer Assessment/Intervention: Sit to Stand Transfer [place] Level: Sit->Stand: minimum assist (75% patient effort) (Min<>Mod A) Assistive Device: Sit->Stand: gait belt, 2 wheeled walker, armed chair Skilled Rationale: Positioning, Hand placement, Verbal cues, Full extension to upright positioning/posture, Technique of activity, Cues for increased safety Skilled Intervention/Details: Sit->Stand: x1 from recliner w/ Mod A, Mod cues for tech at RW; x1from BSC w/ Min A, Mod cues for tech (UE placement, anterior weightshift) at RW Stand to Sit Transfer [place] Level: Stand->Sit: minimum assist (75% patient effort) Assistive Device: Stand->Sit: gait belt, 2 wheeled walker Skilled Rationale: Positioning, Hand placement, Verbal cues, Controlled descent for sitting, Technique of activity, Cues for increased safety Skilled Intervention/Details: Stand->Sit: x1 to BSC, x1 to EOB - verbal and tactile cues each time for proximity, alignments, and UE placement back to surface for improved safety and controlled descent. Toilet Transfer [place] Level: Toilet: minimum assist (75% patient effort) Assistive Device: Toilet: gait belt, 2 wheeled walker, bedside commode Skilled Rationale: Positioning, Hand placement, Verbal cues, Full extension to upright positioning/posture, Controlled descent for sitting, Technique of activity, Cues for increased safety Skilled Intervention/Details: Toilet: Pt ambulated to sink for g/h, sat on BSC while sinkside - Staci for lower and lift assist; Mod vc's for safe tech for STS at RW Functional Mobility: Functional Mobility [place] Level: Functional Mobility/Gait: minimum assist (75% patient effort) Assistive Device: Functional Mobility/Gait: 2 wheeled walker, gait belt Functional Mobility Distance: Distance needed to access restroom Functional Mobility Deficits: Activity tolerance, Balance, Generalized weakness, Slowed gait speed Functional Mobility Skilled Rationale: Facilitate positioning, Cues for increased safety, Facilitate postural control, Technique of activity, Walker management/safety Skilled Intervention/Details - Functional Mobility/Gait: Pt ambulated ~15' from recliner to sink and ~15' sink>EOB at RW during session w/ Min A; pt mildly unsteady at RW but no overt LOB. Min cues for safe RW manuevering, particularly on turns. Outcome Score(s): CURRENT [facility] Daily Activity Inpatient Short Form Putting on/Taking Off Lower Body Clothin - A Little Assistance Bathin - A Little Assistance Toiletin - A Lot of Assistance Putting on/Taking Off Upper Body Clothin - A Little Assistance Groomin - A Little Assistance Eatin - No Assistance CURRENT [facility] Activity Raw Score: 18 CURRENT [facility] Activity Functional Limitation/Modifier: 46.65% Currently Impaired in Daily Activity- CK Interventions: Assessment & Plan: Pt tolerated OT session well this date. Pt met cognition goal for command follow this session and is progressing towards OT goals in grooming, balance, and BSC transfers. Pt continues to be limited most by impaired activity tolerance, impaired balance, pain, generalized weakness, impaired cognition, fatigue during functional mobility and ADL performance. Pt will continue to benefit from skilled OT services to maximize independence and safety with ADLs/functional mobility and reduce burden of care at discharge. Patient Instruction/Education this session: Plan for next session: UB/LB dressing, standing tolerance for ADLs, fxl cognition Acute OT Goals Plan of Care by Rosalia Figueroa OT at 01/22/2022 11:47 AM Version 1 of 1 Problem: OT - Cognition Goal: Cognition - Command following Description: Pt will follow 75% of 1 step commands during ADL task for improved safety and success at discharge destination. Outcome: Met This Shift Problem: OT - ADLs Goal: Grooming Description: Pt will complete grooming standing Mod I for improved ability to safely complete ADLs. Outcome: Progressing Toward Goal Problem: OT - Balance Goal: Balance - Seated Description: Pt will perform 10 minutes of ADL routine in sitting with minimal assistance and balance level of minimum assist to promote safety during self- care activities. Outcome: Progressing Toward Goal Problem: OT - Transfers Goal: Transfers Toilet/Bedside Commode Description: Pt will transfer to/from toilet/BSC with CGA for improved ability to safely complete ADLs. Outcome: Progressing Toward Goal OT treatment consisted of ADL retraining, balance training, energy conservation/endurance training and transfer training to work and progress towards above goal(s). Treating Therapist: Rosalia Figueroa OT Additional Details: Co-evaluation/co-treatment performed?: No simultaneous skilled care performed I used facemask, protective eye shield, and gloves in today's patient interaction. Patient location at end of session: bed with head of bed elevated and RN aware Alarms on at end of session: bed alarm and RN aware Needs in reach. Time In: 1147 (+attempt at 1140 - with PT) Time Out: 1229 Total Visit Time: 42 minutes Total Treatment Time (skilled, billable minutes): 42 minutes Upon discontinuation of Acute Care Occupational Therapy Services or patient discharge from the hospital this note represents the current Occupational Therapy Discharge Summary. * Zarina Mcdonald PT - 01/22/2022 11:23 AM EDT Acute Physical Therapy Treatment Prior to Admission [facility] score(s): PRIOR LEVEL AM-PAC Mobility Raw Score: 24 PRIOR LEVEL AM-PAC Activity Raw Score: 24 Current AM-PAC score(s): CURRENT AM-PAC Mobility Raw Score: 16 Based on the above AM-PAC score(s) and PT clinical judgment, patient is a good candidate for discharge to Inpatient Rehab Facility Supporting Factors (would benefit from skilled therapy services): (Pt would benefit from 3 hours a day of multi-disciplinary rehab to return to [facility].) Mobility equipment available at home: none used ADL equipment available at home: none Equipment needed for discharge: Current therapy frequency recommendation in acute: Therapy Frequency: 5 times a week Precautions and Weightbearing Status: Existing Precautions/Restrictions: fall Patient Safety Communication Prior to Visit: Nursing ( advance as tolerated activity order) Pt is s/p cranioplasty Lines/Tubes/Drains (Rehab Status): Telemetry Respiratory Status O2 Device: nasal cannula Flow (L/min): 1 Subjective: Pt agreed to PT treatment Pain: General Pain Documentation (Adult, OB, Peds) Presence of Pain: complains of pain/discomfort Pain Location: head DVPRS (Defense and Veterans Pain Rating Scale) DVPRS: Rest: 7- severe pain DVPRS: Activity: 7- severe pain Objective/Observation: Vitals/Vitals Responses to Treatment: no adverse response to PT Cognition Overall Cognitive Status: Impaired Arousal/Alertness: Delayed responses to stimuli Orientation Level: Oriented to person, Oriented to place (January 2016) Following Commands: Follows one step commands with increased time, Follows one step commands with repetition Safety Judgment: Decreased awareness of need for assistance, Decreased awareness of need for safety Awareness of Errors: Assistance required to identify errors made, Assistance required to correct errors made Deficits: Decreased awareness of deficits Extremity Assessments: See PT Evaluation flowsheet for Extremity Measurement updates. Balance: Sitting Balance Static Sitting-Level of Assistance: Standby Skilled Rationale: Verbal cues, Full extension to upright positioning/posture, Technique of activity Sitting Balance Skilled Intervention/Details: Pt demonstrated static sitting balance with SBA on EOB Mobility Assessment/Intervention: Supine to Sit Mobility [place] Level: Supine->Sit: contact guard assist Bed Features/Set-up: Supine->Sit: Head of bed elevated Skilled Rationale: Verbal cues, Tactile cues, Hand placement, Technique of activity Skilled Intervention/Details: Supine->Sit: supine to sit to right side of bed with CGA with verbal/tactile cues for instruction on transfer technique. Transfer Assessment/Intervention: Sit to Stand Transfer [place] Level: Sit->Stand: minimum assist (75% patient effort) Assistive Device: Sit->Stand: gait belt Skilled Rationale: Verbal cues, Tactile cues, Hand placement, Technique of activity Skilled Intervention/Details: Sit->Stand: x3 trials: once from EOB, twice from chair. PT provided verbal/tactile cues for hand placement and instruction on transfer technique. Bed-Chair Transfer [place] Level: Bed<->Chair: minimum assist (75% patient effort) Assistive Device: Bed<->Chair: gait belt Skilled Rationale: Verbal cues, Tactile cues, Hand placement, Technique of activity Skilled Intervention/Details: Bed<->Chair: stand pivot transfer from EOB to chair to the leftwith min A and PT provided verbal/tactile cues for instruction on transfer technique. Gait/Functional Mobility Assessment/Intervention: Gait Assessment [place] Level: Gait: minimum assist (75% patient effort) Physical Assist: Gait: chair follow Assistive Device: Gait: gait belt Gait Distance (feet): 30, seated rest break, 30 Gait Deviations Identified: decreased matt, decreased gait speed, decreased heel strike, decreased step length, decreased stride length Gait Skilled Rationale: verbal, upright posture, improve foot placement Skilled Intervention/Details - Gait: Pt amb x 30 feet, took seated rest break, then amb 30 feet with min A x 1 and chair follow. PT provided verbal/tactile cues to facilitate upright posture and improved foot placement. Outcome Score(s): CURRENT [facility] Basic Mobility Inpatient Short Form Turning over in bed: 3 - A Little Assistance Sitting/standing from chair: 3 - A Little Assistance Moving from lying on back to sittin - A Little Assistance Moving to and from bed to chair: 3 - A Little Assistance Walk in hospital room: 3 - A Little Assistance Climbing 3-5 steps with a railin - Total Assistance CURRENT [facility] Mobility Raw Score: 16 CURRENT [facility] Mobility Functional Limitation/Modifier: 54.16% Currently Impaired in Basic Mobility- CK Assessment & Plan: Pt tolerated PT session well with focus on supine to sit transfer, sit to stand transfer, stand pivot transfer and gait training. Pt would benefit from continued PT services to address deficits/impairments including: decreased strength, decreased balance, decreased functional endurance, impaired bed mobility and altered gait mechanics in order to progress I with functional mobility. Patient Instruction/Education this session: plan for PT session Plan for next session: progress gait, transfers Acute PT Goals Plan of Care by Zarina Mcdonald PT at 01/22/2022 12:58 PM Version 1 of 1 Problem: PT - Mobility Goal: Ambulation Description: Pt will ambulate 50 feet with appropriate UE assistance with moderate assistance to improve ability to navigate home environment. Outcome: Progressing Toward Goal Problem: PT - Transfers Goal: Supine <-> Sit Description: Pt will perform bed mobility with flat bed & no rail with standby assistance in order to improve functional mobility and safety. Outcome: Progressing Toward Goal Goal: Sit <-> Stand Description: Pt will perform sit to/from stand transfers with standby assistance with appropriate UE support in order to improve functional mobility and safety. Outcome: Progressing Toward Goal Goal: Stand-Pivot Description: Pt will perform stand/pivot transfer to/from bed/chair/commode with minimal assistancewith appropriate UE support in order to improve functional mobility and safety. Outcome: Progressing Toward Goal Treating Therapist: Zarina Mcdonald PT Additional Details: Co-evaluation/co-treatment performed?: No simultaneous skilled care performed I was assisted by Roman (med V) for today's session. and I used facemask, protective eye shield, and gloves in today's patient interaction. Patient location at end of session: chair with OT in room for start of OT session. Alarms on at endof session: RN aware Needs in reach. Time In: 1123 Time Out: 1147 Total Visit Time: 24 minutes Total Treatment Time (skilled, billable minutes): 24 minutes Upon discontinuation of Acute Care Physical Therapy Services or patient discharge from the hospitalthis note represents the current Physical Therapy Discharge Summary. * Philly Gil RN - 01/21/2022 4:06 PM EDT Progression of Care Note Expected Discharge Date: Medical Milestones Remaining: Continued with postop care. Assessment and Discharge Plan as of 01/21/2022 4:06 PM Plan was discussed with floor team. Patient Choice for Post-Acute Providers Resumption of care?: No Establishing care?: Yes Level of care for choice: SNF Preferred geographic region: Discussed and honored Source of list: Aidin List was provided to: Patient, Significant other, Brother Method of delivery: In Person Is the provider part of a joint venture or have a financial relationship with discharging hospital?: No Anticipated discharge disposition: Residential Facility. Pending PT/OT Anticipated Services at Discharge: Physical Therapy, Occupational Therapy, Residential, Outpatient follow up, Wound/drain/line/ostomy-supplies Explanation of Barriers: Pending medical stability Readmission Risk Score Risk of Readmission: 4.6 Category Reference: High:16-100 Mod-High:10-16 Mod-Low: 5-10 Low: 0-5 Philly BROWN RN Clinical Photonics Engineering Technologist [phone] * Zarina Mcdonald PT - 01/21/2022 7:59 AM EDT Physical Therapy Attempt Note 01/21/2022 PT Therapy Completed: Attempted Attempted Reason: Patient is unavailable due to test/procedure (at OR) Zarina Mcdonald PT Time In: 758 Time Out: 758 Total Visit Time: 0 minutes Total Treatment Time (skilled, billable minutes): 0 minutes * Cheo Jack MD - 01/21/2022 7:16 AM EDT NEUROSURGERY PROGRESS NOTE: 01/21/22 S: naeo, ready for surgery O: PE: awake Ox3 PERRL EOMI FS FC x4 R side 4/5 LUE 4/5 LLE 4/5 Pain limited exam Incision cdi Flap soft Temp: [97.7 F (36.5 C)-98.4 F (36.9 C)] 97.7 F (36.5 C) Pulse (Heart Rate): [102-138] 107 Resp Rate: [16-18] 16 BP: (111-131)/(57-61) 118/59 O2 Sat (%): [94 %-99 %] 99 % Ventilator/Non-Ventilator Mode: CPAP/PS Set Respiratory Rate/Release Rate: 16 PEEP (cm H2O): 6 Pressure Support (cmH2O): 10 O2 Sat (%): 99 % (01/21 403) O2 Device: nasal cannula (01/20 2300) Flow (L/min): 2 (01/20 2300) I/O last 3 completed shifts: In: 510 [P.O.:510] Out: 795 [Urine:795] ICP: No data recorded WBC/Hgb/Hct/Plts: 13.24/8.6/29.1/365 (01/21 157) Na/K+/Phos/Mg/Ca: 143/5.0/4.4/2.0/-- (01/21 157) Bun/Creat/Cl/CO2/Glucose: 15/0.53/101/33/92 (01/21 157) Ptt/Pt/Inr: 27.4/13.4/1.0 (01/217) Imaging: repeat CT head showed stable appearance A/P: Luiza May is a 66 y.o. female p/w SDH s/p R hemicraniectomy on 01/08/2022 Neuro: neuro checks, incision open to air, PTOT. OR 01/21 cranioplasty Cards: SBP<160 Resp: per ICU, wean O2 as able ID: no acute issues FEN/GI: Nutrition, PO improved. Npo at midnight PPX: SCDs, Lovenox Dispo: pending PTOT Please page [phone] ([phone]) with questions. Active Problems: SDH (subdural hematoma) Anemia (Low HGB) Electrolyte disorder (K, Cl, or Na) Present on Admission: SDH (subdural hematoma) Anemia (Low HGB) Electrolyte disorder (K, Cl, or Na) * Sinai Saenz OT - 01/21/2022 7:09 AM EDT Occupational Therapy Attempt Note 01/21/2022 OT Therapy Completed: Attempted Attempted Reason: Patient is unavailable due to test/procedure (Pt in OR for cranioplasty.) Sinai Saenz OT Time In: 708 Time Out: 708 Total Visit Time: 0 minutes Total Treatment Time (skilled, billable minutes): 0 minutes * Jenni Pelaez RD - 01/20/2022 2:33 PM EDT Brief Nutrition Note: Received nutrition consult for assessment of PO adequacy vs need for PEG tube. Please see RD progress note from 01/16 for full nutrition assessment and details. Met with pt this afternoon at bedside. DHT still in place, but TF held. MBS completed by BELT REPAIRER. Oral diet was advanced from pureed to regularyesterday (01/19). Pt reported a good appetite, and eating until she's full. Reviewed oral intake from today, although still averaging <50% of meals during all three meals. Nutrition will provide Ensure oral nutrition supplements TID on meal trays to optimize calories/protein (provides 350 kcals,20 gm protein each). Suggest removing DHT, and allowing pt to trial PO intake alone with oral supple mentation. If prolonged poor PO intake persists on a regular diet consistency, would then readdressneed for PEG tube for supplemental enteral nutrition support. PO Intake Review: 01/19: Breakfast: 25% Lunch: 0% 01/20: Breakfast: 3 bites banana, 120 mL chocolate milk Snack: 3 donuts, soda, chocolate milk Lunch: 50% chicken sandwich, bites of soup Dinner: 50% green beans, 2 bites chicken, 1 bite potatoes. Current Diet Orders Procedures DIET REGULAR Liquid Thin (IDDSI 0) Small bites/sips Standing Status: Standing Number of Occurrences: 1 Order Specific Question: Additional Modifier: Answer: Liquid Thin (IDDSI 0) Height/Weight Evaluation Height: 160 cm (5' 3 ) Weight: 63.9 kg (140 lb 14.4 oz) IBW (Calculated): 52.4 kg Estimated Nutrition Needs: EEN: [id number] (25-30 kcal/kg admit wt) EPN: 80-110 (1.5-2 g/kg admit wt) Malnutrition Diagnosis: Indications of Malnutrition: Unable to assess (unable to obtain detailed PO history prior to admission, significant wt loss in last 3 months per chart review, NFPE unremarkable) based on the AND/ASPEN Malnutrition Criteria [address], LD, [facility]- Pager #[phone] Please note I am providing cross coverage for this day. For primary Dietitian contact information or up to date coverage please see [employer] schedule for Dietitian Restaurant Floor Manager for the appropriate unit for Wednesday-Wednesday coverage or Dietitian Weekends/Holidays Schedule for weekend and holiday coverage. Thank you. * RUI Gaviria - 01/20/2022 12:23 PM EDT 01/20/22 1223 Social Work Screenings Screening patient has qualified for Depression Patient appropriate for screening? Yes Depression Screening Over the past two weeks have you been bothered by feeling down, depressed, or hopeless? No Do you have a history of depression? Yes - taking medication for depression Interventions Intervention Needed? No RUI Tiwari Occ Therapist [facility] 8th floor [phone] * RUI Gaviria - 01/20/2022 12:18 PM EDT 01/20/22 1218 Safety Goals Safety Plan Completed No BLOWER [employer] FURNACE met with patient at bedside to complete safety plan. Patient informed she does not remember making any suicidal statements. Patient denies any current/history of SI/HI. Patient reports mood is stable. Patient has history of anxiety and depression and is on medications that she feels manages hermood effectively. Patient reports having a strong support system and is aware of how to access additional mental health resources if needed. SW identified no other needs at this time. RUI Tiwari Occ Therapist [facility] 8th floor [phone] * Lowell Bryant MD - 01/20/2022 11:04 AM EDT NEUROSURGERY PROGRESS NOTE: 01/20/22 S: naeo, wants to have bone replaced during this admission O: PE: awake Ox3 PERRL EOMI FS FC x4 R side 4/5 LUE 4/5 LLE 4/5 Pain limited exam Incision cdi Flap soft Temp: [98 F (36.7 C)-98.4 F (36.9 C)] 98.3 F (36.8 C) Pulse (Heart Rate): [106-114] 109 Resp Rate: [18-20] 18 BP: (114-129)/(50-58) 121/58 O2 Sat (%): [93 %-98 %] 97 % Ventilator/Non-Ventilator Mode: CPAP/PS Set Respiratory Rate/Release Rate: 16 PEEP (cm H2O): 6 Pressure Support (cmH2O): 10 O2 Sat (%): 97 % (01/21 856) O2 Device: nasal cannula (01/21 856) Flow (L/min): 2 (01/20 0100) I/O last 3 completed shifts: In: 674 [P.O.:130; NG/GT:544] Out: 250 [Urine:250] ICP: No data recorded WBC/Hgb/Hct/Plts: 14.33/9.2/30.9/369 (01/21 520) Na/K+/Phos/Mg/Ca: 142/3.9/3.7/2.1/-- (01/21 520) Bun/Creat/Cl/CO2/Glucose: 22/0.57/101/34/107 (01/21 520) Imaging: repeat CT head showed stable appearance A/P: Luiza May is a 66 y.o. female p/w SDH s/p R hemicraniectomy on 01/08/2022 Neuro: neuro checks, incision open to air, PTOT. OR 01/21 cranioplasty pending Cards: SBP<160 Resp: per ICU, wean O2 as able ID: no acute issues FEN/GI: Nutrition, possibly needs PEG tube for reduced PO intake. Npo at midnight PPX: SCDs, Lovenox Dispo: pending PTOT Please page [phone] ([phone]) with questions. Active Problems: SDH (subdural hematoma) Anemia (Low HGB) Electrolyte disorder (K, Cl, or Na) Present on Admission: SDH (subdural hematoma) Anemia (Low HGB) Electrolyte disorder (K, Cl, or Na) * RUI Gaviria - 01/19/2022 1:36 PM EDT Placement Plan Expected Discharge Date: Referred Level of Care: SNF vs IPR Patient Choice for Post-Acute Providers Resumption of care?: No Establishing care?: Yes Level of care for choice: SNF Preferred geographic region: Discussed and honored Source of list: Aidin List was provided to: Patient, Significant other, Brother Method of delivery: In Person Is the provider part of a joint venture or have a financial relationship with discharging hospital?: No Barriers: Medical Stability, sitter free, Insurance Authorization Current Referrals and Status [facility] - RESERVED IPR: [facility] -sent pending review [facility] -sent pending review [facility] (IR[facility]) -sent pending review [employer]OWER [employer] F[employer]NACE informed that PT/OT now recommending IPR level of care. BLOWER BLAST FURNACE sent IPR referrals in [place], pending review/acceptance. If patient discharges to SNF. SNF cannot accept with NG tube and will need COVID test within 48 hours of admission. Patient will also need precert. BLOWER BLAST FURNACE to continue following. RUI Tiwari Occ Therapist [facility] 8th floor [phone] * Lindsay Lemus MD, PhD - 01/19/2022 1:06 PM EDT NEUROSURGERY PROGRESS NOTE: 01/19/22 S: No significant issues overnight. Stable exam. Last Bowel Movement: 01/19/22 O: PE: Awake and Ox2 (name and place, knows it's summer ) PERRL EOMI FS FC x4 4/5 throughout Pain limited exam Incision cdi Flap soft Temp: [97.7 F (36.5 C)-98.6 F (37 C)] 98 F (36.7 C) Pulse (Heart Rate): [105-114] 114 Resp Rate: [18] 18 BP: (125-162)/(55-72) 129/55 O2 Sat (%): [90 %-97 %] 95 % Ventilator/Non-Ventilator Mode: CPAP/PS Set Respiratory Rate/Release Rate: 16 PEEP (cm H2O): 6 Pressure Support (cmH2O): 10 O2 Sat (%): 95 % (01/19 1248) O2 Device: nasal cannula (01/19 1222) Flow (L/min): 2 (01/19 122) I/O last 3 completed shifts: In: 320 [P.O.:240; NG/GT:80] Out: 550 [Urine:550] ICP: No data recorded WBC/Hgb/Hct/Plts: 17.29/8.8/28.9/344 (01/19 300) Na/K+/Phos/Mg/Ca: 141/3.9/4.4/2.1/-- (01/19 300) Bun/Creat/Cl/CO2/Glucose: 24/0.57/102/32/118 (01/19 0300) Imaging: repeat CT head showed stable appearance A/P: Luiza May is a 66 y.o. female p/w SDH s/p R hemicraniectomy on 01/08/2022 Neuro: neuro checks, incision open to air, PTOT Cards: SBP<160 Resp: per ICU, wean O2 as able ID: no acute issues FEN/GI: BELT REPAIRER for further recs/evaluation; dysphagia diet, encourage PO vs PEG PPX: SCDs, Lovenox Dispo: pending PTOT, PO vs PEG for terminal superintendent nutrition Please page [phone] ([phone]) with questions. Active Problems: SDH (subdural hematoma) Anemia (Low HGB) Electrolyte disorder (K, Cl, or Na) Present on Admission: SDH (subdural hematoma) Anemia (Low HGB) Electrolyte disorder (K, Cl, or Na) * Sinai Saenz OT - 01/19/2022 12:32 PM EDT Acute Occupational Therapy Treatment Prior to Admission AM-PAC Score: PRIOR LEVEL AM-PAC Activity Raw Score: 24 PRIOR LEVEL AM-PAC Mobility Raw Score: 24 Current AM-PAC score(s): CURRENT AM-PAC Activity Raw Score: 10 Based on the above AM-PAC score(s), and OT clinical judgment, discharge destination recommendation is: Inpatient Rehab Facility Supporting Factors (would benefit from skilled therapy services): Patient status is anticipated to be appropriate to tolerate inpatient rehab therapy requirements at time of discharge from acute care, Impaired functional status, Decreased strength, Impaired balance, Decreased endurance, Impaired self-care abilities, Impaired cognitive status, Assistance needed with functional mobility, Fall risk,Recent decline in functional mobility, Recent decline in self-care abilities, Recent decline in cognitive function, Patient has appropriate assistance and setup at home for ultimate discharge to homeonce patient has progressed functionally following inpatient rehab Mobility equipment available at home: none used ADL equipment available at home: none Equipment recommendations for discharge: 2 wheeled walker, wheelchair, bedside commode, shower chair Current therapy frequency recommendation(s) in acute: 5 times a week Precautions and Weightbearing Status: OT Existing Precautions/Restrictions: fall, supplemental oxygen ([place]; Exit alarm.) Patient Safety Communication Prior to Visit: Nursing Current brace/orthoses: Helmet (When EOB/OOB.) Respiratory Status O2 Device: nasal cannula Flow (L/min): 2 Subjective: Pt reported, I don't know that girl when looking at herself in the mirror for the first time. Pain: General Pain Documentation (Adult, OB, Peds) Presence of Pain: complains of pain/discomfort Pain Location: abdomen, flank, left, flank, right, buttocks, right, buttocks, left, head, headache Objective/Observation: Vitals/Vitals Responses to Treatment: Pt reports intermittent mild SOB. Vitals monitored and WFL (oxygen saturation in low to mid 90s and heart rate in 110s- 120s). Pt appears to present with increased anxiety with activity participation and subsequently mild SOB, requiring cues for calming strategies and deep breathing. Vision Screen Currently wearing corrective lenses: No Subjective Patient Complaints: Blurry vision (Bilaterally.) Clinical Observations: Difficult to formally assess this date due to pt's cognitive/mentative limitations, however, pt appears to present with mild- moderate visual limitations. Appears likely a left eye peripheral field cut. Visual Impairments Observed?: Yes Speech Speech: no gross deficits noted Hearing Hearing: no gross deficits noted Cognition Overall Cognitive Status: Impaired Arousal/Alertness: Delayed responses to stimuli Orientation Level: Oriented to person, Oriented to place Following Commands: Follows one step commands with increased time, Follows one step commands with repetition Safety Judgment: Decreased awareness of need for assistance, Decreased awareness of need for safety Awareness of Errors: Assistance required to identify errors made, Assistance required to correct errors made Deficits: Decreased awareness of deficits Attention Span: Attends with cues to redirect, Difficulty attending to directions, Difficulty dividing attention (Easily distracted, requiring cues for re-direction frequently. Decreased ability to efficiently dual task.) Memory: Decreased fdc memory, Decreased short term memory Problem Solving: Assistance required to identify errors made, Assistance required to generate solutions, Assistance required to implement solutions Cognition Comments: Delayed processing rate; Mild confusion; Mild impulsivity; Overall, decreased insight into deficits/safety awareness. ADL Assessment/Intervention: Grooming Assistance: (Minimal-moderate assistance) Grooming Location: seated at sink, standing at sink Grooming Deficit: Wash/dry face, Other (Comment), Attention, Initiation, Sequencing, Problem solving, Follows safety/precautions, Increased time to complete, Activity tolerance, Generalized weakness,Balance, Retrieval of items (Applying deodarant.) Grooming Skilled Rationale (Verbal/Tactile/Visual/Demonstration): Setup, Cues for increased safety,Technique of activity, Cues for cognitive deficit, Facilitate postural control, Facilitate positioning Grooming Intervention/Details: Pt verbalized desire to apply deodarant and therapist challenged completion in standing. Upon standing and providing pt with deodarant, pt grabbed a washcloth and beganrubbing on left aspect of abdomen. When questioned on what she was doing, pt reported, I'm not really sure. I guess I want to wash my face. Pt then delayed for about 1 minute prior to correctly initiating turning on faucet, running washcloth under water, and washing face. Pt then opened deodarantcontainer and ran cap under water several times. Again, therapist questioned pt on what she was doing. Pt again reported, I'm not sure... I'm all over the place. Pt reported fatigue and sat in bedside chair to complete task, requiring moderate cues to initiate/sequence appropriately, including applying to correct axillary area, initially applying to all aspects of gown. UE Dressing Assistance: Moderate UE Dressing Location: standing UE Dressing Deficit: Thread RUE, Thread LUE, Pull up arm, developer prover upholstering head, Ties, Attention, Initiation, Sequencing, Problem solving, Follows safety/precautions, Increased time to complete, Activity tolerance, Generalized weakness, Balance UE Dressing Skilled Rationale (Verbal/Tactile/Visual/Demonstration): Setup, Cues for increased safety, Facilitate postural control, Technique of activity, Cues for cognitive deficit, Facilitate positioning UE Dressing Intervention/Details: Pt doffed soiled gown and donned new gown in standing, requiring minimal-moderate assistance x 1 for balance maintenance. Pt requiring moderate cues/assistance for initiating/sequencing task completion, demonstrating increased difficulty problem solving orientationof gown and ties. LE Dressing Assistance: Moderate LE Dressing Location: seated in chair, standing LE Dressing Deficit: Thread RLE into underwear, Thread LLE into underwear, Pull up over hips, Retrieval of items, Attention, Initiation, Sequencing, Problem solving, Follows safety/precautions, Balance, Generalized weakness, Activity tolerance, Increased time to complete LE Dressing Skilled Rationale (Verbal/Tactile/Visual/Demonstration): Setup, Cues for increased safety, Technique of activity, Cues for cognitive deficit, Facilitate postural control, Facilitate positioning LE Dressing Intervention/Details: Pt threaded LEs through mesh underwear seated in bedside chair with minimal assistance, requiring moderate assistance to don over hips in standing due to overall unsteadiness. Pt again requiring increased cues for efficient initiation/sequencing of task. Toilet Assistance: Total Toileting Location: other, see comments (Pt found incontinent of bowels at start of session supine in bed.) Toileting Deficit: Bowel incontinence, Perineal hygiene Toileting Intervention/Details: Pt required minimal assistance x 1 to complete rolling towards the left to provide hygiene/maame-care and clean linen. Extremity Assessments: See OT Evaluation flowsheet for Extremity Measurement updates. Balance: Sitting Balance Static Sitting-Level of Assistance: Standby Dynamic Sitting-Level of Assistance: Contact guard Sitting Balance Skilled Intervention/Details: Seated EOB for about 10-12 minutes with minimal to nodifficulty, mostly requiring cues for safety. Standing Balance Static Standing-Level of Assistance: Minimum assistance, Moderate assistance Dynamic Standing-Level of Assistance: Moderate assistance Standing Balance Skilled Intervention/Details: Standing for about 2-4 minutes at a time (x several trials) while completing functional transfers/mobility and grooming standing at sink, mostly requiring assistance with initial hip extension and retropulsive lean/weight shift. Mobility Assessment/Intervention: Supine to Sit Mobility [place] Level: Supine->Sit: minimum assist (75% patient effort) Bed Features/Set-up: Supine->Sit: Head of bed elevated, Use of bed rail Skilled Rationale: Cues for increased safety, Initiation and execution of task, Technique of activity, Full extension to upright positioning/posture, Facilitate anterior shift, Tactile cues, Verbal cues, Hand placement, Sequencing, Positioning Skilled Intervention/Details: Supine->Sit: Mostly cueing for initiation/sequencing of transfer and for overall safety, as well as assisting with aligning hips to midline. Transfer Assessment/Intervention: Sit to Stand Transfer [place] Level: Sit->Stand: moderate assist (50% patient effort) (x 4 trials from EOB; x 3 trials from bedside chair.) Assistive Device: Sit->Stand: gait belt (Non-skid socks.) Skilled Rationale: Cues for increased safety, Initiation and execution of task, Technique of activity, Full extension to upright positioning/posture, Facilitate anterior shift, Ischial assist, Arm inarm, Tactile cues, Verbal cues, Hand placement, Sequencing, Positioning Skilled Intervention/Details: Sit->Stand: Mostly cueing for initiation/sequencing of transfer and for overall safety, as well as assisting with initial hip extension and retropulsive lean/weight shift. Stand to Sit Transfer [place] Level: Stand->Sit: minimum assist (75% patient effort) Assistive Device: Stand->Sit: gait belt (Non-skid socks.) Skilled Rationale: Cues for increased safety, Initiation and execution of task, Technique of activity, Controlled descent for sitting, Arm in arm, Tactile cues, Verbal cues, Hand placement, Sequencing, Positioning, Ischial assist Bed-Chair Transfer Columbia Level: Bed<->Chair: moderate assist (50% patient effort) Assistive Device: Bed<->Chair: gait belt (Non-skid socks.) Skilled Rationale: Cues for increased safety, Initiation and execution of task, Technique of activity, Controlled descent for sitting, Full extension to upright positioning/posture, Facilitate anterior shift, Ischial assist, Arm in arm, Tactile cues, Verbal cues, Hand placement, Sequencing, Positioning Skilled Intervention/Details: Bed<->Chair: Mostly cueing for initiation/sequencing of transfer and for overall safety, as well as assisting with maintenance of upright posture and weight shifting to side-step towards the right and appropriately align hips to chair. Functional Mobility: Functional Mobility [place] Level: Functional Mobility/Gait: moderate assist (50% patient effort) Assistive Device: Functional Mobility/Gait: gait belt (Non-skid socks.) Functional Mobility Distance: (Few feet forward from bedside chair to sink within room.) Skilled Intervention/Details - Functional Mobility/Gait: Moderate unsteadiness with pt presenting with retropulsive/posterior lean/weight shift and decreased coordinated LE movements, but no LOB/SOB experienced. Outcome Score(s): CURRENT [facility] Daily Activity Inpatient Short Form Putting on/Taking Off Lower Body Clothin - A Lot of Assistance Bathin - A Lot of Assistance Toiletin - Total Assistance Putting on/Taking Off Upper Body Clothin - A Lot of Assistance Groomin - A Lot of Assistance Eatin - Total Assistance ([place].) CURRENT [facility] Activity Raw Score: 10 CURRENT [facility] Activity Functional Limitation/Modifier: 74.70% Currently Impaired in Daily Activity- CL PROJECTED AM-PAC Activity Raw Score: 17 PROJECTED AM-PAC Activity Functional Limitation/Modifier: 50.11% - CK Assessment & Plan: Pt is demonstrating fair plus/fair progress in occupational therapy goals this date, primarily in seated balance, UE ROM/strength, and alertness. However, pt's barriers to discharge and overall inhibitors in ADL/IADL/functional transfer performance/independence include pt's deficits in bed mobility, functional transfers/mobility, standing balance, UE coordination/precision, and cognition. Pt would benefit from continued acute occupational therapy services prior to discharge to address noted deficits and progress towards achieving increased independence in occupational performance. Patient Instruction/Education this session: Pt educated on the importance of EOB/OOB activities in improving independence in self-care/functional activity participation and on the role of OT/OT plan of care. Plan for next session: Therapist to address further standing balance, functional transfers, cognition, and ADL performance. Acute OT Goals Plan of Care by Sinai Saenz OT at 01/19/2022 11:49 AM Version 1 of 1 Problem: OT - Dressing Goal: Upper Body Dressing Description: Pt will complete UE dressing task Edge of bed with moderate assistance for improved ability to complete self-care activities. Outcome: Ongoing Problem: OT - ADLs Goal: Grooming Description: Pt will complete grooming Edge of bed with minimal assistance for improved ability to safely complete ADLs. Outcome: Ongoing Problem: OT - Cognition Goal: Cognition - Command following Description: Pt will follow 75% of 1 step commands during ADL task for improved safety and success at discharge destination. Outcome: Ongoing Problem: OT - Balance Goal: Balance - Seated Description: Pt will perform 10 minutes of ADL routine in sitting with minimal assistance and balance level of minimum assist to promote safety during self- care activities. Outcome: Ongoing OT treatment consisted of ADL retraining, balance training, bed mobility training, cognitive training, energy conservation/endurance training and transfer training to work and progress towards above goal(s). Treating Therapist: Sinai Saenz OT Additional Details: Co-evaluation/co-treatment performed?: Yes, combination of simultaneous billable and non-billable care This co-treatment session performed between OT and PT was beneficial, necessary and provided distinct services in progressing this person's individual plan of care. Medical complexity with functionaldeficits that necessitate two skilled therapy disciplines working concurrently to optimize patient's progress towards each discipline's goals. This co-treatment was medically necessary due to patient's: Cognitive issues, Coordination issues, Postural control and Endurance/Activity Tolerance. Patient benefits from simultaneous treatment from another therapy discipline to maximize progress towards above Occupational Therapy goals. I used facemask, protective eye shield, and gloves in today's patient interaction. Patient location at end of session: chair Alarms on at end of session: chair alarm and RN aware Needs in reach. Time In: 1149 Time Out: 1232 Total Visit Time: 43 minutes Total Treatment Time (skilled, billable minutes): 43 minutes Upon discontinuation of Acute Care Occupational Therapy Services or patient discharge from the hospital this note represents the current Occupational Therapy Discharge Summary. * Emma Valles, PT - 01/19/2022 12:22 PM EDT Acute Physical Therapy Treatment PRIOR LEVEL AM-PAC Mobility Raw Score: 24 CURRENT AM-PAC Mobility Raw Score: 11 Based on the above AM-PAC score(s) and PT clinical judgment, patient is a good candidate for discharge to Inpatient Rehab Facility Supporting Factors (would benefit from skilled therapy services): (Pt would benefit from 3 hours a day of multi-disciplinary rehab to return to [facility].) Mobility equipment available at home: none used ADL equipment available at home: none Equipment needed for discharge: Current therapy frequency recommendation in acute: Therapy Frequency: 5 times a week Precautions and Weightbearing Status: Existing Precautions/Restrictions: supplemental oxygen, fall Patient Safety Communication Prior to Visit: Nursing Current brace/orthoses: Helmet Lines/Tubes/Drains (Rehab Status): Telemetry Respiratory Status O2 Device: nasal cannula Flow (L/min): 2 SUBJECTIVE: Pt in bed, incontinent of stool, facilitated pericare. Pt agreeable to work with PT and get OOB today. Pt excited for her progress. Pain: General Pain Documentation (Adult, OB, Peds) Presence of Pain: complains of pain/discomfort Pain Location: ( in my side ) OBJECTIVE: Vitals/Response to Treatment: HR 120-122bpm, SpO2 91-92%, pt endorses subjective SOB, encouraged pursed lip breathing. Cognition Overall Cognitive Status: Impaired Orientation Level: Oriented to person, Oriented to place (place with increased time) Bed Mobility: Supine to Sit Mobility [place] Level: Supine->Sit: minimum assist (75% patient effort) Bed Features/Set-up: Supine->Sit: Head of bed elevated Skilled Rationale: Verbal cues, Tactile cues, Sequencing Skilled Intervention/Details: Supine->Sit: up to L side of bed, cues to complete transfer fully,with feet on the floor/scooting fully to EOB. Balance: Sitting Balance Static Sitting-Level of Assistance: Supervision Dynamic Sitting-Level of Assistance: Standby Skilled Rationale: Verbal cues, Full extension to upright positioning/posture Standing Balance Static Standing-Level of Assistance: Moderate assistance Dynamic Standing-Level of Assistance: Moderate assistance Standing-Balance Support: Gait belt Skilled Rationale: Verbal cues, Tactile cues, Facilitate anterior shift, Full extension to upright positioning/posture, Hand placement (Foot placement) Standing Balance Skilled Intervention/Details: Cues at COM to reduce retropulsion; max stand for 2 minutes while doffing soiled gown and donning new gown. Transfers: Sit to Stand Transfer [place] Level: Sit->Stand: moderate assist (50% patient effort) Assistive Device: Sit->Stand: gait belt Skilled Rationale: Verbal cues, Tactile cues, Positioning, Sequencing, Hand placement, Facilitate anterior shift, Full extension to upright positioning/posture Skilled Intervention/Details: Sit->Stand: x4 from EOB, x1 from recliner Stand to Sit Transfer [place] Level: Stand->Sit: (min/modA) Assistive Device: Stand->Sit: gait belt Skilled Rationale: Verbal cues, Tactile cues, Hand placement, Facilitate anterior shift, Controlleddescent for sitting Skilled Intervention/Details: Stand->Sit: x3 to EOB, x2 to recliner; good carryover of immediatecues, limited carryover from trial to trial. Bed-Chair Transfer [place] Level: Bed<->Chair: moderate assist (50% patient effort) Assistive Device: Bed<->Chair: gait belt, hand held assist Skilled Rationale: Verbal cues, Tactile cues, Sequencing, Facilitate anterior shift Skilled Intervention/Details: Bed<->Chair: Facilitation to reduce retropulsion, allowing for improved lateral weight shift and BLE advancement to side step to chair. Gait/Functional Mobility: Gait Assessment [place] Level: Gait: moderate assist (50% patient effort) Physical Assist: Gait: chair follow Assistive Device: Gait: gait belt, hand held assist Gait Distance (feet): 10 Gait Deviations Identified: decreased matt, decreased gait speed (retropulsion) Gait Skilled Rationale: verbal, tactile, upright posture, improve foot placement ASSESSMENT & PLAN: Pt with significant improvement with all aspects of mobility, including advancing to gait trial. Would continue to benefit from skilled PT to progress towards PLOF. Plan for next session: standing balance, repeat sit<>stands, gait /c chair follow PT treatment consisted of Therapeutic Activity, Gait/Stair Training and Neuro Muscle Re-Education to work and progress towards goal(s). Treating Therapist: Emma Valles PT,DPT,NCS Additional Details: Co-evaluation/co-treatment performed?: Yes, combination of simultaneous billable and individual billable skilled care d/t initial complexity I used gloves and facemask in today's patient interaction. Patient location at end of session: chair, chair alarm; with OT at sink to work on ADLs. Needs in reach. Time In: 1152 Time Out: 1222 Total Visit Time: 30 minutes Total Treatment Time (skilled, billable minutes): 25 minutes Upon discontinuation of Acute Care Physical Therapy Services or patient discharge from the hospitalthis note represents the current Physical Therapy Discharge Summary. Acute PT Goals Plan of Care by Emma Valles PT at 01/19/2022 12:22 PM Version 1 of 1 Problem: PT - Transfers Goal: Supine <-> Sit Description: Pt will perform bed mobility with moderate assistance in order to improve functional mobility and safety. Outcome: Completed Goal: Sit <-> Stand Description: Pt will perform sit to/from stand transfers with moderate assistance with appropriate UE assistance in order to improve functional mobility and safety. Outcome: Completed Goal: Stand-Pivot Description: Pt will perform stand/pivot transfer to/from bed/chair/commode with moderate assistance with appropriate UE assistance in order to improve functional mobility and safety. Outcome: Completed Problem: PT - Balance/Coordination/Neuro Re-Education Goal: Standing Balance Description: Pt will maintain standing balance with moderate assistance with appropriate UE assistance to improve safety with standing tasks. Outcome: Progressing Toward Goal Problem: PT - Mobility Goal: Ambulation Description: Pt will ambulate 50 feet with appropriate UE assistance with moderate assistance to improve ability to navigate home environment. Outcome: Progressing Toward Goal * Elda Munoz BELT REPAIRER - 01/19/2022 9:12 AM EDT Acute Care Speech Language Pathology Treatment Diet Recommendations: Recommended Method of Nutrition: PO Recommended Diet Grade: regular Recommended Liquid Consistency: liquid- thin (IDDSI 0) Medications: (whole or crushed in puree) Swallow Strategies: (small single bites/sips) Type of Cues/Supervision: 1:1 supervision Assistance: nurse/aide, family Referrals: MBS Discharge Recommendations: Based on the below outcome measures/assessment score(s),, and BELT REPAIRER clinical judgment, discharge destination recommendation is: Pending instumental swallow assessment Barriers to discharge home: Need for 1:1 assist to ensure safety with all PO intake Supporting factors for discharge setting: Impaired swallow function limiting nutritional status andsafety with oral intake Acute BELT REPAIRER Outcomes Tracking Communicate basic wants and needs?: yes Demo insight/appreciation of deficits?: unable to determine Complete basic problem solving?: unable to determine Current therapy frequency recommendation in acute: Speech/Lang/Cog Therapy Frequency: 3 times a week Swallow Therapy Frequency: 3 times a week Clinical Impression: Possible oropharyngeal dysphagia s/p SDH requiring right hemicraniectomy. Given no documented concerns re: oral diet and performance, pt appropriate for regular diet with thin liquids. Given cough x1with thin liquids in the setting of recent right hemicraniectomy, recommend MBS for objective assessment of swallow function to most appropriately guide BELT REPAIRER plan of care. Pt/family in agreement to recommendations. Also discussed patient's concerns re: tube feeds possibly impacting appetite/oral intake with MD, RN, and RD. Subjective: Awake, alert, reporting multiple concerns re: headache, wanting to shower, etc. These concerns were relayed to battery charger conveyor line. Pt also with intermittent c/o nausea; notified RN and MD. Husbandand brother present. Pain: General Pain Documentation (Adult, OB, Peds) Presence of Pain: complains of pain/discomfort Pain Location: headache Pain Location: headache Respiratory Status: 2L via nasal cannula. Acute BELT REPAIRER Goals Plan of Care by Elda Munoz BELT REPAIRER at 01/19/2022 9:12 AM Version 1 of 1 Problem: BELT REPAIRER - Dysphagia Goal: PO Trial 3 Description: Patient will swallow trials of advancing solids demonstrating appropriate alertness, timely/effective mastication, bolus formation and oral bolus transit without overt clinical signs/symptoms of aspiration, across 1-3 sessions to determine readiness for diet advancement. Outcome: Completed Tx: Pt accepted x6 bites of regular solids (x5 bites toast, x1 bite Sebastian's cup.) Pt with timely/efficient mastication and adequate oral clearance. Pt appeared to swallow all trials; no s/sx of airway penetration/aspiration with regular solids. Noted pt also observed with ~5 straw sips of thin liquids; pt demonstrated immediate cough with initial straw sip, concerning for airway penetration/aspiration; however, no s/sx of airway penetration/aspiration with remaining trials. Pt has been on oral diet since 01/13 without any documented respiratory complications. Recommend solid advancement to regular diet. Goal met. Patient Instruction/Education this session: Reviewed updated diet recommendations, plan for MBS. Plan for next session: MBS I used facemask, protective eye shield, and gloves in today's patient interaction. Speech Language Pathologist: GIRISH Alcala Time In: 911 Time Out: 944 Total Visit Time: 33 minutes Total Treatment Time (skilled, billable minutes): 25 minutes Patient location at end of session: bed with head of bed elevated Alarms on at end of session: battery charger conveyor line present in room; aware call light off and verbalized she will turn it on when leaving room Needs in reach. Upon discontinuation of Acute Care Speech Therapy Services or patient discharge from the hospital this note represents the current Speech Therapy Discharge Summary * Radha Jc MD - 01/17/2022 6:42 AM EDT NEUROSURGERY PROGRESS NOTE: 01/17/22 S: No significant issues overnight. Stable exam. Tolerating concentrated tube feeds somewhat better O: PE: awake Ox2 PERRL EOMI FS FC x4 R side 4/5 LUE 4/5 LLE 4/5 Pain limited exam Incision cdi Flap soft Temp: [97.8 F (36.6 C)-98.7 F (37.1 C)] 98.1 F (36.7 C) Pulse (Heart Rate): [93-108] 108 Resp Rate: [14-18] 16 BP: (106-123)/(55-58) 113/58 O2 Sat (%): [92 %-98 %] 92 % Ventilator/Non-Ventilator Mode: CPAP/PS Set Respiratory Rate/Release Rate: 16 PEEP (cm H2O): 6 Pressure Support (cmH2O): 10 O2 Sat (%): 92 % (01/17 349) O2 Device: nasal cannula (01/16 2033) Flow (L/min): 2 (01/16 2033) I/O last 3 completed shifts: In: 1208 [P.O.:440; NG/GT:768] Out: 1650 [Urine:1650] ICP: No data recorded WBC/Hgb/Hct/Plts: 12.86/8.5/26.7/277 (01/18 56) Na/K+/Phos/Mg/Ca: 143/4.0/4.0/1.8/-- (01/18 56) Bun/Creat/Cl/CO2/Glucose: 23/0.52/102/30/140 (01/18 56) Imaging: repeat CT head showed stable appearance A/P: Luiza May is a 66 y.o. female p/w SDH s/p R hemicraniectomy on 01/08/2022 Neuro: neuro checks, incision open to air, PTOT Cards: SBP<160 Resp: per ICU, wean O2 as able ID: no acute issues FEN/GI: BELT REPAIRER for further recs/evaluation; dysphagia diet, encourage PO PPX: SCDs, Lovenox Dispo: pending PTOT Please page [phone] ([phone]) with questions. Active Problems: SDH (subdural hematoma) Anemia (Low HGB) Electrolyte disorder (K, Cl, or Na) Present on Admission: SDH (subdural hematoma) * Cheo Jack MD - 01/16/2022 7:51 PM EDT NEUROSURGERY PROGRESS NOTE: 01/16/22 S: NAEO O: PE: awake Ox2 PERRL EOMI FS FC x4 R side 4/5 LUE 4/5 LLE 4/5 Pain limited exam Incision cdi Flap soft Temp: [97.8 F (36.6 C)-98.7 F (37.1 C)] 98.2 F (36.8 C) Pulse (Heart Rate): [92-110] 99 Resp Rate: [14-20] 16 BP: (106-123)/(54-58) 109/55 O2 Sat (%): [93 %-98 %] 98 % Ventilator/Non-Ventilator Mode: CPAP/PS Set Respiratory Rate/Release Rate: 16 PEEP (cm H2O): 6 Pressure Support (cmH2O): 10 O2 Sat (%): 98 % (01/16 1935) O2 Device: nasal cannula (01/16 1935) Flow (L/min): 2 (01/16 1723) I/O last 3 completed shifts: In: 1048 [P.O.:340; NG/GT:708] Out: 1800 [Urine:1800] ICP: No data recorded WBC/Hgb/Hct/Plts: 11.32/8.3/26.1/284 (01/16 239) Na/K+/Phos/Mg/Ca: 143/4.0/3.5/1.8/-- (01/16 239) Bun/Creat/Cl/CO2/Glucose: 21/0.47/103/31/127 (01/16 239) Imaging: postop CTH with expected findings A/P: Luiza May is a 66 y.o. female p/w SDH s/p R hemicraniectomy on 01/08/2022 Neuro: neuro checks, incision open to air Cards: SBP<160 Resp: per ICU, wean O2 as able ID: Ancef completed FEN/GI: BELT REPAIRER for further recs/evaluation; dysphagia diet, encourage PO PPX: SCDs, Lovenox Dispo: pending PTOT Please page [phone] ([phone]) with questions. Active Problems: SDH (subdural hematoma) Anemia (Low HGB) Electrolyte disorder (K, Cl, or Na) Present on Admission: SDH (subdural hematoma) * Lupe Keane RD - 01/16/2022 5:14 PM EDT Have reviewed student's documentation and plan of care. Agree with note below. Lupe Keane RD,LD,[id number] NUTRITION FOLLOW UP Nutrition Recommendations and Plan of Care: 1. Continue current diet. Diet advancement per BELT REPAIRER. - pt declines oral nutrition supplements 2. Recommend transitioning to nocturnal TF. Vital AF 1.2 @90 ml/hr x 16 hrs (100% needs) 3. Can start weaning TF once PO intake at least consistently 50-75%. 4. Monitor PO intake/TF, bowel function, skin integrity, wt change, and lab values. 5. RD to follow. Luiza May is a 66 y.o. female with h/o alcohol abuse, anxiety, COPD, CHF, HTN, HLD, CVA, TIA,DVT who presented as a hemorrhagic stroke alert who fell at home. Found to have a subdural hematomaand was taken for craniotomy with NSGY (01/08). Assessment: Pt had been NPO since last RD visit. BELT REPAIRER recommendation PO dysphagia diet and thin liquids (01/13/22). Diet was subsequently advanced. TF advanced to goal on 01/11. Pt currently on dysphagia diet and goal TF. Per intake records, total feed assistance needed and 25% eaten of 1 documented meal. Met with pt at beside this am, family present. Pt reported UBW of 105 lbs, unknown time frame. Pt and family aware she was gaining wt prior to admission, reported current wt of 135 lbs. Pt reported appetite has been unchanged, no further explanation offered. Pt denied getting tray for meal this am,but per RN outside room, pt drank milk and had most of waffles from tray this am. Pt denied recent wt loss and N/V/D. Pt denied nutrition supplement. Diet Order Current Diet Orders Procedures DIET PUREED (IDDSI 4) Liquid Thin (IDDSI 0) Meds in puree, 1:1 supervision Standing Status: Standing Number of Occurrences: 1 Order Specific Question: Determine a Liquid Consistency: Answer: Liquid Thin (IDDSI 0) Ht: 5' 3 /16- cm CBW (01/09): 148#/67.4 kg Admit Wt: 121#/55kg BMI: 26.34 kg/(m^2) IBW: 115#/52 kg Weight History: 01/15/22 67.4 kg (148 lb 11.2 oz) 01/14/22 61.2 kg (134 lb 14.7 oz) 01/13/22 63.7 kg (140 lb 6.9 oz) 01/12/22 60.9 kg (134 lb 4.2 oz) 01/11/22 58.9 kg (129 lb 13.6 oz) 01/09/22 55.2 kg (121 lb 11.1 oz) 01/09/22 55.2 kg (121 lb 11.1 oz) 01/08/22 69.4 kg (153 lb) 12/23/21 11/03/21 10/28/21 09/15/21 07/01/21 02/04/21 62.2 kg (138 lb) 63 kg (139 lbs) 69.5 kg (153 lb) 67 kg (147 lb) 68 kg (150 lbs) 71.2 kg (157 lbs) Per care everywhere. Wt had been stable around 150 lbs until October. Rapid wt loss noted in early November. Has continued to lose wt since. Admission wt indicates a wt loss of 32 lbs (21% in 3 months). Meds reviewed: senna, Vital AF 1.2 @60 ml/hr Labs reviewed: Na/K+/Phos/Mg/Ca: 143/4.0/3.5/1.8/-- (01/16 239) WBC/Hgb/Hct/Plts: 11.32/8.3/26.1/284 (01/16 239) Bun/Creat/Cl/CO2/Glucose: 21/0.47/103/31/127 (01/16 239) GI: Last BM 01/15 +NG tube Skin: Nacho Score: 14 Frontal region incision Edema - 1+ R arm Estimated Nutrition Needs: EEN: [id number] (25-30 kcal/kg admit wt) EPN: 80-110 (1.5-2 g/kg admit wt) Malnutrition Diagnosis: Indications of Malnutrition: Unable to assess (unable to obtain detailed PO history prior to admission, significant wt loss in last 3 months per chart review, NFPE unremarkable) based on the AND/ASPEN Malnutrition Criteria 2012 Pt remains at nutrition risk due to alcohol abuse, COPD, CHF, HTN, HLD, CVA, TIA, TF reliance, dysphagia diet, poor PO intake, wt loss prior to admission. Lisa Alexander, Dietetics Student Pager #[phone] * RUI Gaviria - 01/16/2022 11:38 AM EDT Placement Plan Expected Discharge Date: 01/17/2022 Referred Level of Care: SNF Patient Choice for Post-Acute Providers Resumption of care?: No Establishing care?: Yes Level of care for choice: SNF Preferred geographic region: Discussed and honored Source of list: Aidin List was provided to: Patient, Significant other, Brother Method of delivery: In Person Is the provider part of a joint venture or have a financial relationship with discharging hospital?: No Barriers: Medical Stability, sitter free, Insurance Authorization Current Referrals and Status [facility] - RESERVED Pending medical progressiion of patient. SNF cannot accept with NG tube and will need COVID test within 48 hours of admission. Patient will also need precert. BLOWER BLAST FURNACE to continue following. Melina HANKS SHIPS EQUIPMENT ENGINEER Occ Therapist [facility] 8th floor [phone] For Social Work assistance for the weekend, please contact for assistance as needed (8:00am - 4:30pm): [facility]: [phone] Marge: [phone] Bernardo: [phone] Marcelo/EDA/LYSSAU Jeet: [phone] * RUI Gaviria - 01/16/2022 11:35 AM EDT Reason for Consult: Suicide Safety Plan Consulted By: Treatment Team Assessment Patient with altered mental status and delirium Action Plan BLOWER BLAST FURNACE to complete safety plan with patient once medically appropriate. RUI Tiwari Occ Therapist [facility] 8th floor [phone] For Social Work assistance for the weekend, please contact for assistance as needed (8:00am - 4:30pm): [facility]: [phone] Marge: [phone] Bernardo: [phone] Marcelo/EDA/PCU Jeet: [phone] * Lisa Benjamin - 01/16/2022 10:05 AM EDT NUTRITION FOLLOW UP Nutrition Recommendations and Plan of Care: 1. Continue current diet. Diet advancement per BELT REPAIRER. - pt declines oral nutrition supplements 2. Recommend transitioning to nocturnal TF. Vital AF 1.2 @90 ml/hr x 16 hrs (100% needs) 3. Can start weaning TF once PO intake at least consistently 50-75%. 4. Monitor PO intake/TF, bowel function, skin integrity, wt change, and lab values. 5. RD to follow. Luiza May is a 66 y.o. female with h/o alcohol abuse, anxiety, COPD, CHF, HTN, HLD, CVA, TIA,DVT who presented as a hemorrhagic stroke alert who fell at home. Found to have a subdural hematomaand was taken for craniotomy with NSGY (01/08). Assessment: Pt had been NPO since last RD visit. BELT REPAIRER recommendation PO dysphagia diet and thin liquids (01/13/22). Diet was subsequently advanced. TF advanced to goal on 01/11. Pt currently on dysphagia diet and goal TF. Per intake records, total feed assistance needed and 25% eaten of 1 documented meal. Met with pt at beside this am, family present. Pt reported UBW of 105 lbs, unknown time frame. Pt and family aware she was gaining wt prior to admission, reported current wt of 135 lbs. Pt reported appetite has been unchanged, no further explanation offered. Pt denied getting tray for meal this am,but per RN outside room, pt drank milk and had most of waffles from tray this am. Pt denied recent wt loss and N/V/D. Pt denied nutrition supplement. Diet Order Current Diet Orders Procedures DIET PUREED (IDDSI 4) Liquid Thin (IDDSI 0) [place] [facility] [place] Standing Status: Standing Number of Occurrences: 1 Order Specific Question: Determine a Liquid Consistency: Answer: Liquid Thin (IDDSI 0) Ht: 5' 3 /16- cm CBW (01/09): 148#/67.4 kg Admit Wt: 121#/55kg BMI: 26.34 kg/(m^2) IBW: 115#/52 kg Weight History: 01/15/22 67.4 kg (148 lb 11.2 oz) 01/14/22 61.2 kg (134 lb 14.7 oz) 01/13/22 63.7 kg (140 lb 6.9 oz) 01/12/22 60.9 kg (134 lb 4.2 oz) 01/11/22 58.9 kg (129 lb 13.6 oz) 01/09/22 55.2 kg (121 lb 11.1 oz) 01/09/22 55.2 kg (121 lb 11.1 oz) 01/08/22 69.4 kg (153 lb) 12/23/21 11/03/21 10/28/21 09/15/21 07/01/21 02/04/21 62.2 kg (138 lb) 63 kg (139 lbs) 69.5 kg (153 lb) 67 kg (147 lb) 68 kg (150 lbs) 71.2 kg (157 lbs) Per care everywhere. Wt had been stable around 150 lbs until October. Rapid wt loss noted in early November. Has continued to lose wt since. Admission wt indicates a wt loss of 32 lbs (21% in 3 months). Meds reviewed: senna, Vital AF 1.2 @60 ml/hr Labs reviewed: Na/K+/Phos/Mg/Ca: 143/4.0/3.5/1.8/-- (01/16 239) WBC/Hgb/Hct/Plts: 11.32/8.3/26.1/284 (01/16 239) Bun/Creat/Cl/CO2/Glucose: 21/0.47/103/31/127 (01/16 239) GI: Last BM 01/15 +NG tube Skin: Nacho Score: 14 Frontal region incision Edema - 1+ R arm Estimated Nutrition Needs: EEN: [id number] (25-30 kcal/kg admit wt) EPN: 80-110 (1.5-2 g/kg admit wt) Malnutrition Diagnosis: Indications of Malnutrition: Unable to assess (unable to obtain detailed PO history prior to admission, significant wt loss in last 3 months per chart review, NFPE unremarkable) based on the AND/ASPEN Malnutrition Criteria 2012 Pt remains at nutrition risk due to alcohol abuse, COPD, CHF, HTN, HLD, CVA, TIA, TF reliance, dysphagia diet, poor PO intake, wt loss prior to admission. Lisa Alexander, Dietetics Student Pager #[phone] * Gregjackie Kimberli - 01/15/2022 1:11 PM EDT Acute Occupational Therapy Treatment Prior to Admission AM-PAC Score: PRIOR LEVEL AM-PAC Activity Raw Score: 24 PRIOR LEVEL AM-PAC Mobility Raw Score: 24 Current AM-PAC score(s): CURRENT AM-PAC Activity Raw Score: 7 Based on the above AM-PAC score(s), and OT clinical judgment, discharge destination recommendation is: Residential Facility Barriers to discharge home: Patient needs assistance with functional mobility, Patient needs assistance with ADLs Supporting Factors (would benefit from skilled therapy services): Impaired functional status, Impaired balance, Impaired cognitive status, Assistance needed with functional mobility Mobility equipment available at home: none used ADL equipment available at home: none Equipment recommendations for discharge: to be determined Current therapy frequency recommendation(s) in acute: 5 times a week Precautions and Weightbearing Status: Patient Safety Communication Prior to Visit: Nursing Current brace/orthoses: Helmet (OOB) Respiratory Status O2 Device: nasal cannula Flow (L/min): 2 Subjective: Pt alert and agreeable to therapy session. Pain: General Pain Documentation (Adult, OB, Peds) Presence of Pain: non-verbal indicator of pain/discomfort present Objective/Observation: Vitals/Vitals Responses to Treatment: WFL throughout session Cognition Overall Cognitive Status: Impaired Arousal/Alertness: Delayed responses to stimuli Orientation Level: Oriented to person Following Commands: Follows one step commands inconsistently Safety Judgment: Decreased awareness of need for assistance, Decreased awareness of need for safety Awareness of Errors: Decreased awareness of errors Deficits: Decreased awareness of deficits Attention Span: Attends with cues to redirect Problem Solving: Assistance required to identify errors made, Assistance required to generate solutions, Assistance required to implement solutions Cognition Comments: increased anxiety due to fear of falling ADL Assessment/Intervention: Grooming Assistance: Total Grooming Location: seated in chair Grooming Deficit: Increased time to complete, Activity tolerance, Generalized weakness, Pain, Balance, Manipulation of items, Bringing items to mouth/face, Maintain grasp of items, Wash/dry face, Attention, Initiation Grooming Skilled Rationale (Verbal/Tactile/Visual/Demonstration): Facilitate positioning, Facilitate postural control, Technique of activity, Cues for increased safety, Setup, Supervision, Proximal support to increase distal control for task, [id number] assist Grooming Intervention/Details: Pt with mild initiation of bringing hand to face but could not fullyexecute; support provided at elbow for stability for improved distal mobilization of forearm and hand; hand over hand assist for full execution of face washing; pt with limited tolerance to activity likely due to pain and weakness UE Dressing Assistance: Total UE Dressing Location: bed level UE Dressing Deficit: Increased time to complete, Activity tolerance, Generalized weakness, Thread RUE, Thread LUE, Pull up arm, Pull around back, Manipulation of items, Maintain grasp of items, Initiation UE Dressing Skilled Rationale (Verbal/Tactile/Visual/Demonstration): Facilitate positioning, Facilitate postural control, Technique of activity, Cues for cognitive deficit, Cues for increased safety,Setup, Supervision UE Dressing Intervention/Details: Therapist and nurse doffed and donned new gown in prep for transfer with no initiation from pt Toilet Assistance: Maximal Toileting Location: bedside commode Toileting Deficit: Increased time to complete, Activity tolerance, Generalized weakness, Balance, Clothing management up, Clothing management down, Perineal hygiene Toilet Skilled Rationale (Verbal/Tactile/Visual/Demonstration): Facilitate positioning, Facilitate postural control, Cues for cognitive deficit, Technique of activity, Cues for increased safety, Setup, Supervision Toileting Intervention/Details: Pt able to alert therapists when needing to use the restroom; full assist needed for clothing management and pericare Extremity Assessments: See OT Evaluation flowsheet for Extremity Measurement updates. Balance: Sitting Balance Static Sitting-Level of Assistance: (CGA-mod) Dynamic Sitting-Level of Assistance: (Min-mod) Skilled Rationale: Positioning, Verbal cues, Cues for increased safety, Full extension to upright positioning/posture, Finding/maintaining midline positioning, Upright gaze/neck extension Sitting Balance Skilled Intervention/Details: pt tolerated sitting EOB for about 10 min; pt initially mod assist for balance upon sitting and progressed to CGA with increased verbal and tactile cues Standing Balance Static Standing-Level of Assistance: Maximum assistance, 2-person assist Dynamic Standing-Level of Assistance: Maximum assistance, 2-person assist Standing-Balance Support: Gait belt (arm in arm) Skilled Rationale: Positioning, Verbal cues, Full extension to upright positioning/posture, Cues for increased safety Standing Balance Skilled Intervention/Details: x2; increased assist for balance and stability Mobility Assessment/Intervention: Supine to Sit Mobility [place] Level: Supine->Sit: maximum assist (25% patient effort) Physical Assist: Supine->Sit: 2 person assist Bed Features/Set-up: Supine->Sit: Head of bed elevated, Use of bed rail Skilled Rationale: Positioning, Sequencing, Hand placement, Verbal cues, Full extension to upright positioning/posture, Finding/maintaining midline positioning, Initiation and execution of task, Cuesfor increased safety Skilled Intervention/Details: Supine->Sit: x1 to L; pt with mild initation for transfer; full assist for trunk and bilat LE management Transfer Assessment/Intervention: Sit to Stand Transfer [place] Level: Sit->Stand: maximum assist (25% patient effort) Physical Assist: Sit->Stand: 2 person assist Assistive Device: Sit->Stand: gait belt Skilled Rationale: Arm in arm, Positioning, Sequencing, Hand placement, Verbal cues, Cues for increased safety, Initiation and execution of task, Full extension to upright positioning/posture, Technique of activity, Patellar block Skilled Intervention/Details: Sit->Stand: x2; verbal cues for safe UE positioning and initation of transfer; 2 person assist for anterior weight shift, ascent to upright position, and stability/balance in standing Stand to Sit Transfer [place] Level: Stand->Sit: maximum assist (25% patient effort) Physical Assist: Stand->Sit: 2 person assist Assistive Device: Stand->Sit: gait belt, armed chair Skilled Rationale: Arm in arm, Positioning, Sequencing, Verbal cues, Cues for increased safety, Controlled descent for sitting Skilled Intervention/Details: Stand->Sit: x2; limited eccentric control present Bed-Chair Transfer Columbia Level: Bed<->Chair: maximum assist (25% patient effort) Physical Assist: Bed<->Chair: 2 person assist Assistive Device: Bed<->Chair: gait belt, armed chair Skilled Rationale: Positioning, Sequencing, Hand placement, Verbal cues, Arm in arm, Full extensionto upright positioning/posture, Controlled descent for sitting, Patellar block, Initiation and execution of task, Cues for increased safety Skilled Intervention/Details: Bed<->Chair: x1 pivot R to armed chair; full assist for balanceand stability during transfer and mobilization of LE and trunk to guide hips to chair Toilet Transfer [place] Level: Toilet: maximum assist (25% patient effort) Physical Assist: Toilet: 2 person assist Assistive Device: Toilet: gait belt, bedside commode (Arm in arm) Skilled Rationale: Positioning, Sequencing, Hand placement, Cues for increased safety, Initiation and execution of task, Technique of activity Skilled Intervention/Details: Toilet: Pivot R to bedside commode from EOB; increased cues for initiation; full assist for balance and stability during transfer and mobilization of LE and trunk to guide hips to BSC Outcome Score(s): [facility]RENT [facility] Daily Activity Inpatient Short Form Putting on/Taking Off Lower Body Clothin - Total Assistance Bathin - Total Assistance Toiletin - A Lot of Assistance Putting on/Taking Off Upper Body Clothin - Total Assistance Groomin - Total Assistance Eatin - Total Assistance [facility] Activity Raw Score: 7 [facility]RENT [facility] Activity Functional Limitation/Modifier: 92.44% Currently Impaired in Daily Activity- CM Interventions: Intervention 1 Intervention Name: Bilat UE PROM Sets/Reps/Duration: 5 reps each Details: Therapist completed gentle PROM for bilat shoulder flx/ext, elbow flx/ext, wrist flx/ext, digits 1-5 flx/ext for increased motion and functionality of bilat UE for increased independence andsafety in ADLs. Therapist educated and demonstrated bilat UE PROM that can be completed with pt daily. Family demonstrated for increased understanding. Assessment & Plan: Pt motivated to participate in therapy session and making good progress towards goals. Pt continuesto require max x2 assist for functional transfers and max- total assist for basic self care this date.Pt limited by deficits in balance, endurance, bilat UE function, pain, and cognition. Pt to continue to benefit from OT services to increase independence with self care and safety during functional transfers. Patient Instruction/Education this session: Plan for next session: EOB ADLs, toilet transfers Acute OT Goals Plan of Care by Meg Fields OT at 01/15/2022 12:15 PM Version 1 of 1 Problem: OT - Balance Goal: Balance - Seated Description: Pt will perform 10 minutes of ADL routine in sitting with minimal assistance and balance level of minimum assist to promote safety during self- care activities. Outcome: Ongoing Problem: OT - Transfers Goal: Transfers Toilet/Bedside Commode Description: Pt will transfer to/from toilet/BSC with moderate assistance for improved ability to safely complete ADLs. Outcome: Ongoing Problem: OT - ADLs Goal: Grooming Description: Pt will complete grooming Edge of bed with minimal assistance for improved ability to safely complete ADLs. Outcome: Progressing Toward Goal Problem: OT - Cognition Goal: Cognition - Command following Description: Pt will follow 75% of 1 step commands during ADL task for improved safety and success at discharge destination. Outcome: Progressing Toward Goal OT treatment consisted of ADL retraining, balance training, bed mobility training, energy conservation/endurance training, range of motion and transfer training to work and progress towards above goal(s). Treating Therapist: Nat Ag Additional Details: Co-evaluation/co-treatment performed?: Yes, simultaneous billable skilled care This co-treatment session performed between OT and PT was beneficial, necessary and provided distinct services in progressing this person's individual plan of care. Medical complexity with functionaldeficits that necessitate two skilled therapy disciplines working concurrently to optimize patient's progress towards each discipline's goals. This co-treatment was medically necessary due to patient's: Postural control. Patient benefits from simultaneous treatment from another therapy discipline to maximize progress towards Occupational Therapy goals. I used facemask, protective eye shield, and gloves in today's patient interaction. Patient location at end of session: chair Alarms on at end of session: chair alarm Needs in reach. Time In: 1148 Time Out: 1222 Total Visit Time: 34 minutes Total Treatment Time (skilled, billable minutes): 34 minutes Upon discontinuation of Acute Care Occupational Therapy Services or patient discharge from the hospital this note represents the current Occupational Therapy Discharge Summary. Associated attestation - Meg Fields OT - 01/15/2022 1:20 PM EDT I, Meg Fileds OT, provided direct guidance in the room during this patient care session. I attest that all documentation reflects accurate skilled clinical decisions and judgements. Meg Fields OTR/L License Number: [id number] Pager: [phone] * Zarina Mcdonald, PT - 01/15/2022 11:48 AM EDT Acute Physical Therapy Treatment Prior to Admission AMPAC score(s): PRIOR LEVEL AM-PAC Mobility Raw Score: 24 PRIOR LEVEL AM-PAC Activity Raw Score: 24 Current AM-PAC score(s): CURRENT AM-PAC Mobility Raw Score: 6 Based on the above AM-PAC score(s) and PT clinical judgment, patient is a good candidate for discharge to Residential Facility Mobility equipment available at home: none used ADL equipment available at home: none Equipment needed for discharge: Current therapy frequency recommendation in acute: Therapy Frequency: 5 times a week Precautions and Weightbearing Status: Existing Precautions/Restrictions: fall Patient Safety Communication Prior to Visit: Nursing ( up with assistance activity order) Current brace/orthoses: Helmet (OOB) Respiratory Status O2 Device: nasal cannula Flow (L/min): 2 Subjective: Pt agreed to PT treatment Pain: General Pain Documentation (Adult, OB, Peds) Presence of Pain: complains of pain/discomfort Pain Location: leg, left, leg, right DVPRS (Defense and Veterans Pain Rating Scale) DVPRS: Rest: (pt did not rate when asked) Objective/Observation: Vitals/Vitals Responses to Treatment: no adverse response to PT Cognition Overall Cognitive Status: Impaired Arousal/Alertness: Delayed responses to stimuli Orientation Level: Oriented to person Following Commands: Follows one step commands with increased time, Follows one step commands with repetition Safety Judgment: Decreased awareness of need for safety, Decreased awareness of need for assistance Awareness of Errors: Assistance required to identify errors made, Assistance required to correct errors made Deficits: Decreased awareness of deficits Extremity Assessments: See PT Evaluation flowsheet for Extremity Measurement updates. Balance: Sitting Balance Static Sitting-Level of Assistance: (initially max A, progressed to CGA) Skilled Rationale: Verbal cues, Tactile cues, Hand placement, Full extension to upright positioning/posture, Finding/maintaining midline positioning, Technique of activity Sitting Balance Skilled Intervention/Details: Pt initially demonstrated posterior lean in sitting that required max A. With verbal/tactile cues for awarness to lean and corrective technique towards midline, pt demonstrated progress to CGA with intermittent min A. Mobility Assessment/Intervention: Supine to Sit Mobility [place] Level: Supine->Sit: dependent (less than 25% patient effort) Physical Assist: Supine->Sit: 2 person assist Bed Features/Set-up: Supine->Sit: Head of bed elevated Skilled Rationale: Verbal cues, Tactile cues, Hand placement, Technique of activity, Initiation andexecution of task Skilled Intervention/Details: Supine->Sit: dependent A x 2 for bilat LE and trunk management. PTprovided verbal cues for instruction on transfer technique and to facilitate initation of transfer. Transfer Assessment/Intervention: Sit to Stand Transfer [place] Level: Sit->Stand: maximum assist (25% patient effort) Physical Assist: Sit->Stand: 2 person assist Assistive Device: Sit->Stand: gait belt Skilled Rationale: Verbal cues, Tactile cues Skilled Intervention/Details: Sit->Stand: x1 trial from EOB, x1 trial from BSC. PT provided verbal/tactile cues for hand placement, foot placement, transfer technique and facilitated anterior weight shift to initiate transfer. Bed-Chair Transfer [place] Level: Bed<->Chair: maximum assist (25% patient effort) Physical Assist: Bed<->Chair: 2 person assist Assistive Device: Bed<->Chair: gait belt Skilled Rationale: Verbal cues, Tactile cues, Hand placement, Technique of activity Skilled Intervention/Details: Bed<->Chair: x1 from EOB to BSC to the right, x 1 from BSC to chair to the right. Verbal/tactile cues for instruction on transfer technique and hand placement. Outcome Score(s): [facility]RENT [facility] Basic Mobility Inpatient Short Form Turning over in bed: 1 - Total Assistance Sitting/standing from chair: 1 - Total Assistance Moving from lying on back to sittin - Total Assistance Moving to and from bed to chair: 1 - Total Assistance Walk in hospital room: 1 - Total Assistance Climbing 3-5 steps with a railin - Total Assistance [facility]RENT [facility] Mobility Raw Score: 6 CURRENT [facility] Mobility Functional Limitation/Modifier: 100.00% Currently Impaired in Basic Mobility Currently Impaired in Basic Mobility - CN Assessment & Plan: Pt tolerated PT session with focus on supine to sit transfer, sit to stand transfer, stand pivot transfer, and sitting balance. Pt would benefit from continued PT services to address deficits/impairments including: decreased strength, decreased balance, impaired bed mobility and impaired transfers/gait in order to progress I with functional mobility. Patient Instruction/Education this session: plan for PT session Plan for next session: progress transfers, balance Acute PT Goals Plan of Care by Zarina Mcdonald PT at 01/15/2022 1:03 PM Version 1 of 1 Problem: PT - Transfers Goal: Supine <-> Sit Description: Pt will perform bed mobility with moderate assistance in order to improve functional mobility and safety. Outcome: Progressing Toward Goal Goal: Sit <-> Stand Description: Pt will perform sit to/from stand transfers with moderate assistance with appropriate UE assistance in order to improve functional mobility and safety. Outcome: Progressing Toward Goal Goal: Stand-Pivot Description: Pt will perform stand/pivot transfer to/from bed/chair/commode with moderate assistance with appropriate UE assistance in order to improve functional mobility and safety. Outcome: Progressing Toward Goal PT treatment consisted of Therapeutic Activity to work and progress towards above goal(s). Treating Therapist: Zarina Mcdonald PT Additional Details: Co-evaluation/co-treatment performed?: Yes, simultaneous billable skilled care I used facemask, protective eye shield, and gloves in today's patient interaction. Patient location at end of session: chair Alarms on at end of session: chair alarm and RN aware Needs in reach. Time In: 1148 Time Out: 1214 Total Visit Time: 26 minutes Total Treatment Time (skilled, billable minutes): 26 minutes Upon discontinuation of Acute Care Physical Therapy Services or patient discharge from the hospitalthis note represents the current Physical Therapy Discharge Summary. * RUI Gaviria - 01/14/2022 1:47 PM EDT Placement Plan Expected Discharge Date: 01/17/2022 Referred Level of Care: SNF Patient Choice for Post-Acute Providers Barriers: Medical Stability, Insurance Authorization Current Referrals and Status [facility] - RESERVED [employer] met with patient, patient brother, and significant other at bedside to discuss SNF options. Patient agreed to discharge to [facility] once medically ready. [employer] sent clinical updates to SNF via [facility] and reserved SNF. SNF cannot accept with NG tube and will need COVID test within 48hours of admission. Patient will also need precert. [employer] to continue following. RUI Tiwari Occ Therapist [facility] 8th floor [phone] * Betzy Dexter - 01/14/2022 12:52 PM EDT Images from the original note were not included. Acute Physical Therapy Treatment PRIOR LEVEL AM-PAC Mobility Raw Score: 24 CURRENT AM-PAC Mobility Raw Score: 7 Based on the above AM-PAC score(s) and PT clinical judgment, patient is a good candidate for discharge to Residential Facility Mobility equipment available at home: none used ADL equipment available at home: none Equipment needed for discharge: Current therapy frequency recommendation in acute: Therapy Frequency: 5 times a week Precautions and Weightbearing Status: Existing Precautions/Restrictions: supplemental oxygen, fall Patient Safety Communication Prior to Visit: Nursing Current brace/orthoses: Helmet (when OOB; R hemicraniectomy) Respiratory Status O2 Device: nasal cannula Flow (L/min): 1.5 SUBJECTIVE: Patient supine in bed on arrival sleeping. Patient agreeable to therapy and much more interactive this visit. Able to converse and answer direct questions. Several instances of confusion and inappropriate responses but able to be redirected to attend to tasks. Patient reporting she is doing better today and is ready to move. Pain: General Pain Documentation (Adult, OB, Peds) Presence of Pain: denies pain/discomfort DVPRS (Defense and Veterans Pain Rating Scale) DVPRS: Rest: 0- no pain OBJECTIVE: Vitals/Response to Treatment: No adverse response. Cognition Overall Cognitive Status: Impaired Orientation Level: Oriented to person (not oriented to place or time with options) Following Commands: Follows one step commands with repetition, Follows one step commands with increased time Attention Span: Attends with cues to redirect Cognition Comments: mild confusion throughout session but able to converse and answer questions with cueing. Few instances of reporting seeing objects or people not present in the room. Bed Mobility: Supine to Sit Mobility [place] Level: Supine->Sit: maximum assist (25% patient effort) Physical Assist: Supine->Sit: 2 person assist Bed Features/Set-up: Supine->Sit: Head of bed elevated Skilled Rationale: Verbal cues, Hand placement, Positioning, Full extension to upright positioning/posture, Technique of activity Skilled Intervention/Details: Supine->Sit: x1 toward L side; assistance provided for LE placement/movement over EOB and to facilitate upright trunk positioning in sitting. Balance: Sitting Balance Static Sitting-Level of Assistance: (CGA > SBA) Dynamic Sitting-Level of Assistance: Contact guard Skilled Rationale: Verbal cues, Hand placement, Positioning, Facilitate anterior shift, Upright gaze/neck extension, Finding/maintaining midline positioning Sitting Balance Skilled Intervention/Details: Pt seated EOB about 15 minutes throughout session. Initially CGA progressing to SBA for static sitting with UE assist on bed. Able to improve posture andmaintain midline positioning following cues. Difficulty maintaining foot placement on floor with cues due to increased tone/knee extension. Standing Balance Static Standing-Level of Assistance: Minimum assistance Dynamic Standing-Level of Assistance: 2-person assist Standing-Balance Support: Gait belt, Bilateral hand held assist Skilled Rationale: Verbal cues, Hand placement, Positioning, Facilitate anterior shift, Full extension to upright positioning/posture, Upright gaze/neck extension Standing Balance Skilled Intervention/Details: x2 stands from EOB up to 20 seconds with patient reporting she needed to sit and felt like she may fall. Pt able to improve upright posture and gaze following cues. Transfers: Sit to Stand Transfer [place] Level: Sit->Stand: moderate assist (50% patient effort) Physical Assist: Sit->Stand: 2 person assist Assistive Device: Sit->Stand: gait belt Skilled Rationale: Verbal cues, Hand placement, Positioning, Arm in arm, Facilitate anterior shift,Full extension to upright positioning/posture Skilled Intervention/Details: Sit->Stand: x2 from EOB with arm in arm assist. Pt able to initiate movement and come into full standing position with cues and assistance. Assistance provided to prevent retropulsive LOB and to facilitate anterior weight shift. Stand to Sit Transfer Columbia Level: Stand->Sit: moderate assist (50% patient effort) Physical Assist: Stand->Sit: 2 person assist Assistive Device: Stand->Sit: gait belt Skilled Rationale: Verbal cues, Hand placement, Positioning, Arm in arm, Controlled descent for sitting Skilled Intervention/Details: Stand->Sit: x1 to EOB, x1 to recliner with assistance needed to slow descent. Bed-Chair Transfer Columbia Level: Bed<->Chair: moderate assist (50% patient effort) Physical Assist: Bed<->Chair: 2 person assist Assistive Device: Bed<->Chair: gait belt, armed chair Skilled Rationale: Verbal cues, Hand placement, Positioning, Facilitate anterior shift, Controlled descent for sitting Skilled Intervention/Details: Bed<->Chair: x1 stand pivot from EOB to recliner with arm in arm assistance. Assistance required to facilitate anterior weight shift and upright posture and to control descent. ASSESSMENT & PLAN: Patient with increased participation this visit and able to perform sit to stand and stand pivot tochair with assistance. Would continue to benefit from skilled PT to progress towards PLOF. Plan for next session: progress OOB activity, sit to stands, standing balance PT treatment consisted of Therapeutic Activity and Neuro Muscle Re-Education to work and progress towards goal(s). Treating Therapist: Betzy DexterSPT Additional Details: Co-evaluation/co-treatment performed?: No simultaneous skilled care performed I was assisted by Perlita Valles, PT for today's session. and I used gloves and facemask in today's patient interaction. Patient location at end of session: chair and RN aware, chair alarm Needs in reach. Time In: 1218 Time Out: 1252 Total Visit Time: 34 minutes Total Treatment Time (skilled, billable minutes): 34 minutes Upon discontinuation of Acute Care Physical Therapy Services or patient discharge from the hospitalthis note represents the current Physical Therapy Discharge Summary. PT Eval Care Plan & Goals (Active) PT - Balance/Coordination/Neuro Re-Education Dates: Start: 01/14/22 Standing Balance Dates: Start: 01/14/22 Expected End: 01/31/22 Description: Pt will maintain standing balance with moderate assistance with appropriate UE assistance to improve safety with standing tasks. PT - Mobility Dates: Start: 01/14/22 Ambulation Dates: Start: 01/14/22 Expected End: 01/31/22 Description: Pt will ambulate 50 feet with appropriate UE assistance with moderate assistance to improve ability to navigate home environment. PT - Transfers Dates: Start: 01/14/22 Supine <-> Sit Dates: Start: 01/14/22 Expected End: 01/31/22 Description: Pt will perform bed mobility with moderate assistance in order to improve functional mobility and safety. Sit <-> Stand Dates: Start: 01/14/22 Expected End: 01/31/22 Description: Pt will perform sit to/from stand transfers with moderate assistance with appropriate UE assistance in order to improve functional mobility and safety. Stand-Pivot Dates: Start: 01/14/22 Expected End: 01/31/22 Description: Pt will perform stand/pivot transfer to/from bed/chair/commode with moderate assistance with appropriate UE assistance in order to improve functional mobility and safety. Associated attestation - Emma Valles PT - 01/14/2022 2:54 PM EDT I, Emma Valles PT, provided direct supervision/guidance in room during this patient care session. I attest that all documentation reflects accurate skilled clinical decisions and judgements. * Lowell Bryant MD - 01/14/2022 7:42 AM EDT NEUROSURGERY PROGRESS NOTE: 01/14/22 S: NAEO O: PE: awake Ox1 PERRL EOMI FS FC x4 R side 4/5 LUE 4/5 LLE 4/5 Pain limited exam Incision cdi Flap soft Temp: [98.1 F (36.7 C)-98.7 F (37.1 C)] 98.2 F (36.8 C) Pulse (Heart Rate): [79-95] 85 Resp Rate: [13-27] 17 BP: (96-100)/(44-54) 100/46 O2 Sat (%): [85 %-100 %] 95 % Weight: [61.2 kg (134 lb 14.7 oz)] 61.2 kg (134 lb 14.7 oz) Ventilator/Non- Ventilator Mode: CPAP/PS Set Respiratory Rate/Release Rate: 16 PEEP (cm H2O): 6 Pressure Support (cmH2O): 10 O2 Sat (%): 95 % (01/14 718) O2 Device: nasal cannula (01/14 603) Flow (L/min): 2 (01/14 603) I/O last 3 completed shifts: In: 1478 [NG/GT:1478] Out: 1195 [Urine:1195] ICP: No data recorded WBC/Hgb/Hct/Plts: 10.06/7.1/24.0/224 (01/13 2359) Na/K+/Phos/Mg/Ca: 145/4.2/3.5/1.9/-- (01/13 2359) Bun/Creat/Cl/CO2/Glucose: 22/0.57/103/37/97 (01/13 2359) Imaging: postop CTH with expected findings A/P: Luiza May is a 66 y.o. female p/w SDH s/p R hemicraniectomy on 01/08/2022 Neuro: neuro checks, incision open to air Cards: SBP<160 Resp: per ICU, wean O2 as able ID: Ancef completed FEN/GI: BELT REPAIRER for further recs/evaluation PPX: SCDs, Lovenox Dispo: pending PTOT Please page [phone] ([phone]) with questions. Active Problems: SDH (subdural hematoma) Anemia (Low HGB) Electrolyte disorder (K, Cl, or Na) Present on Admission: SDH (subdural hematoma) * Carla Stiles OT - 01/13/2022 6:51 PM EDT Acute Occupational Therapy Evaluation Prior to Admission AM-PAC Score: PRIOR LEVEL AM-PAC Activity Raw Score: 24 Current AM-PAC score(s): CURRENT AM-PAC Activity Raw Score: 6 Based on the above AM-PAC score(s) and OT clinical judgment, discharge destination recommendation is: Inpatient Rehab Facility Supporting Factors (would benefit from skilled therapy services): Impaired functional status, Impaired balance, Impaired cognitive status, Assistance needed with functional mobility Mobility equipment available at home: ADL equipment available at home: Equipment recommendations for discharge: to be determined Current therapy frequency recommendation(s) in acute: 5 times a week Precautions and Weightbearing Status: Patient Safety Communication Prior to Visit: Nursing, Physician Current brace/orthoses: Helmet (R hemicraniectomy) Respiratory Status O2 Device: nasal cannula Subjective: Pt alert to voice, demonstrating confusion. Pt agreeable to session, reports fear of falling. Theyfound me down in the basement. Pain: General Pain Documentation (Adult, OB, Peds) Presence of Pain: non-verbal indicator of pain/discomfort not present CPOT (Critical-Care Pain Observation Tool) Facial Expression: relaxed, neutral Body Movements: absence of movements Muscle Tension: tense, rigid Vocalization (Extubated Patients): talking in normal tone or no sound CPOT Score (0-8): 1 Home Setting Residence: House Lives With: spouse (, Nasim) First floor setup: bedroom Home Environment Details: Difficult to obtain home info d/t pt cognitive status; unsure of accuracyof info provided as pt initally said she lives alone but then said she lives with her . Previous Level of Function Prior level ADL Overview: Independent with all ADLs Bed Mobility/Transfers: independent Ambulation Skills: independent Assistive Device: none used Objective/Observation: Vitals/Vitals Responses to Treatment: VSS Vision Screen Currently wearing corrective lenses: No Clinical Observations: Pt with right sided neglect, unable to track past midline. Pt with physical assistance to turn head, unable to complete visual attention to tasks on right side. Pt with limitedattention for completion of visual assessment. Speech Speech: slurred speech Hearing Hearing: no gross deficits noted Cognition Overall Cognitive Status: Impaired Arousal/Alertness: Delayed responses to stimuli Orientation Level: Oriented to person (max cue for place, unable to report date) Following Commands: Follows multistep commands inconsistently, Follows commands less than 25% of the time Safety Judgment: Decreased awareness of need for assistance, Decreased awareness of need for safety Awareness of Errors: Decreased awareness of errors Cognition Comments: Pt with limited responses at times, limited by increased fear of falling. ADLs: Eating Assistance: Total Grooming Assistance: Total Bathing Assistance: Total UE Dressing Assistance: Total LE Dressing Assistance: Total Toilet Assistance: Total Assistance levels as outlined above are based on clinical judgement of anticipated performance unless details of performance noted. Extremity Assessments: RUE Assessment Right UE Assessment Details: Pt presents with increased resistance vs. tone, inconsistently following commands for assessment. Pt with presentation of ecentric control with PROM, pt with active grasp3/5 LUE Assessment Left UE Assessment Details: Pt presents with increased resistance vs. tone, inconsistently following commands for assessment. Pt with presentation of ecentric control with PROM, pt with active grasp 3/5 Balance: Sitting Balance Static Sitting-Level of Assistance: Dependent Dynamic Sitting-Level of Assistance: Dependent Sitting Balance Skilled Intervention/Details: pt with pushing left, total assistance for attemptingmidline. Pt tolerating ~8 minutes EOB Neuro: Sensation Overall Sensation: Impaired Sensation Comments: Pt reports similar sensation, unable to fully assess due to cognition. Gross Coordination Gross Coordination: LUE impaired, RUE impaired Fine Motor Coordination Additional Documentation: (limited assessment, pt able to complete slow grasp, limited dexterity noted.) Skin and Edema: Edema Edema: none noted Mobility Assessment: Supine to Sit Mobility [place] Level: Supine->Sit: dependent (less than 25% patient effort) Physical Assist: Supine->Sit: 2 person assist Sit to Supine Mobility [place] Level: Sit->Supine: dependent (less than 25% patient effort) Physical Assist: Sit->Supine: 2 person assist Outcome Score(s): CURRENT [facility] Daily Activity Inpatient Short Form Putting on/Taking Off Lower Body Clothin - Total Assistance Bathin - Total Assistance Toiletin - Total Assistance Putting on/Taking Off Upper Body Clothin - Total Assistance Groomin - Total Assistance Eatin - Total Assistance CURRENT [facility] Activity Raw Score: 6 CURRENT [facility] Activity Functional Limitation/Modifier: 100.00% Currently Impaired in Daily Activity Currently Impaired in Daily Activity - CN Assessment & Plan: Patient presents initially as a hemorrhagic stroke alert but was found to have been a fall at home with unknown time down. Found to have a subdural hematoma and was taken for craniotomy with NSGY. Orthopaedics was consulted for chronic T12 compression fx. OT consulted for impaired functional mobility related to SDH and T12 fx.and seen for therapy evaluation related to assessment of self care task completion. Exam findings include impairments in: aerobic capacity, attention, balance, cognitive impairments, coordination, endurance, strength, transfers. These impairments contribute to occupational performance limitations including bathing, dressing, grooming, toileting, functional mobility, ADL transfers. The following factors impact the plan of care: cognition, decreased balance, increased falls risk Patient will benefit from skilled occupational therapy to address these impairments, occupational performance limitations, and participation restrictions. Patient's rehab potential is: good, to achieve stated therapy goals. Planned Therapy Interventions (OT Eval): ADL retraining, balance training, fine motor coordination training, functional activity tolerance, neuromuscular re- education, strengthening, stretching, transfer training Patient Instruction/Education this session: Patient Instruction: Role of OT, plan of care, progression of self care task Plan for next session: progress with plan of care as appropriate Acute OT Goals Plan of Care by Carla Stiles OT at 01/13/2022 6:51 PM Version 1 of 1 Problem: OT - Dressing Goal: Upper Body Dressing Description: Pt will complete UE dressing task Edge of bed with moderate assistance for improved ability to complete self-care activities. Outcome: Ongoing Problem: OT - ADLs Goal: Grooming Description: Pt will complete grooming Edge of bed with minimal assistance for improved ability to safely complete ADLs. Outcome: Ongoing Problem: OT - Visual Scanning Goal: Visual Tracking Description: Pt will track past midline to right 2/3 completions during session with 75% cues, to attend to familiar object/person for ADL participation. Outcome: Ongoing Problem: OT - Cognition Goal: Cognition - Command following Description: Pt will follow 75% of 1 step commands during ADL task for improved safety and success at discharge destination. Outcome: Ongoing Problem: OT - Balance Goal: Balance - Seated Description: Pt will perform 10 minutes of ADL routine in sitting with minimal assistance and balance level of minimum assist to promote safety during self- care activities. Outcome: Ongoing Problem: OT - Transfers Goal: Transfers Toilet/Bedside Commode Description: Pt will transfer to/from toilet/BSC with moderate assistance for improved ability to safely complete ADLs. Outcome: Ongoing Evaluating Therapist: Carla Stiles OT Additional Details: Co-evaluation/co-treatment performed?: Yes, simultaneous billable skilled care This co-evaluation session performed between OT and PT was beneficial, necessary and provided distinct services in establishing this person's individual plan of care. Medical complexity with functional deficits necessitated two skilled therapy disciplines working concurrently to determine each discipline's goals. OT Evaluation Complexity Occupational Profile and Client History: High - extensive history Assessment of Occupational Performance: High (5 or more performance deficits) Clinical Decision/Performance Deficits: High (comprehensive assessments w/multiple treatment options) Time In: 1330 Time Out: 1357 Total Visit Time: 27 minutes Total Treatment Time (skilled, billable minutes): 27 minutes Patient location at end of session: bed with head of bed elevated Alarms on at end of session: RN aware Needs in reach. Upon discontinuation of Acute Care Occupational Therapy Services or patient discharge from the hospital this note represents the current Occupational Therapy Discharge Summary. * Emma Valles, PT - 01/13/2022 2:06 PM EDT Images from the original note were not included. Acute Physical Therapy Evaluation PRIOR LEVEL AM-PAC Mobility Raw Score: 24 CURRENT AM-PAC Mobility Raw Score: 6 Based on the above AM-PAC score(s) and PT clinical judgment, patient is a good candidate for discharge to Residential Facility Current therapy frequency recommendation in acute: Therapy Frequency: 5 times a week Precautions and Weightbearing Status: Existing Precautions/Restrictions: supplemental oxygen, fall Patient Safety Communication Prior to Visit: Nursing, Physician Current brace/orthoses: Helmet (R hemicraniectomy) Respiratory Status O2 Device: nasal cannula Flow (L/min): 2 SUBJECTIVE: Pt able to verbalize some during session, chuckles at a few jokes. However, cognition and speech impaired to obtain home information. Pt agreeable to try to sit up for the first time since arriving to hospital. Pain: General Pain Documentation (Adult, OB, Peds) Presence of Pain: non-verbal indicator of pain/discomfort not present Home Setting Residence: House Lives With: spouse (, Nasim) First floor setup: bedroom Home Environment Details: Difficult to obtain home info d/t pt cognitive status; unsure of accuracyof info provided as pt initally said she lives alone but then said she lives with her . Previous Level of Function Prior level ADL Overview: Independent with all ADLs Bed Mobility/Transfers: independent Ambulation Skills: independent Assistive Device: none used OBJECTIVE: Vitals/Response to Treatment: VSS Cognition Overall Cognitive Status: Impaired Orientation Level: Oriented to person, Oriented to situation (Disoriented to place and time) Cognition Comments: They said I had a stroke They picked me up from the basement Vision Screen Visual Impairments Observed?: (Limited eye opening, ROM appears intact L eye, inconsistent responseregarding double vision.) Speech Speech: slurred speech, word-finding difficulties (L facial droop) Hearing Hearing: no gross deficits noted Extremity Assessments: RUE Assessment RUE Assessment: Exceptions to WFL Right UE Assessment Details: tone noted in all extremities; minimal active muscle contraction LUE Assessment LUE Assessment: Exceptions to WFL Left UE Assessment Details: tone noted in all extremities; minimal active muscle contraction RLE Assessment RLE Assessment: Exceptions to WFL Right LE Assessment Details: tone noted in all extremities; minimal active muscle contraction LLE Assessment LLE Assessment: Exceptions to WFL Left LE Assessment Details: tone noted in all extremities; minimal active muscle contraction Sensation Sensation Comments: States she can feel light touch and feels the same on both sides. Mobility Assessment: Supine to Sit Mobility [place] Level: Supine->Sit: dependent (less than 25% patient effort) Physical Assist: Supine->Sit: 2 person assist Sit to Supine Mobility [place] Level: Sit->Supine: dependent (less than 25% patient effort) Physical Assist: Sit->Supine: 2 person assist Balance: Sitting Balance Static Sitting-Level of Assistance: Maximum assistance Dynamic Sitting-Level of Assistance: Maximum assistance Sitting Balance Skilled Intervention/Details: L leaning, neck rotated slightly L; significant cueing to find/maintain midline with trunk and head. x8 minutes at EOB. Standing Balance Static Standing-Level of Assistance: (Unable) ASSESSMENT & PLAN: Luiza May is a 66 y.o. female who hx of alcohol abuse, anxiety, COPD, CHF, HTN, HLD, CVA and TIA, DVT, who presents initially as a hemorrhagic stroke alert but was found to have been a fall at home with unknown time down. Found to have a subdural hematoma and was taken for craniotomy with NSGY. Orthopaedics was consulted for chronic T12 compression fx. PT consulted for impaired functional mobility related to SDH and T12 fx. Exam findings include impairments in: ROM (range of motion), Balance, Coordination, Posture, Transfers, Motor control, Cognition/Arousal/Attention. These impairments contribute to functional limitations including Decreased ambulation distance/endurance, Difficulty stair climbing/descent, Increased fall risk, Difficulty with bed mobility, Difficulty with transfers, Decreased functional mobility. Current clinical presentation is Unstable - unstable and unpredictable characteristics - safety risk (High). Patient history factors impacting Plan Of Care include SDH s/p hemicraniectomy R, MLS, uncal herniation, T12 compression fx, EtOH abuse, COPD, HTN, DVT. Patient will benefit from skilled physical therapy to address these impairments, functional limitations, and participation restrictions and has good rehab potential to achieve therapy goals. Planned Therapy Interventions: balance training, bed mobility training, functional activity tolerance, motor coordination training, neuromuscular re- education, postural re-education, ROM, transfer training Plan for next session: sitting balance, positioning Evaluating Therapist: Emma Valles, PT,DPT,NCS Additional Details: Co-evaluation/co-treatment performed?: Yes, simultaneous billable skilled care I used gloves and facemask in today's patient interaction. Evaluation Complexity Components History: High (3 personal factors and/or comorbidities) Body Systems Review: High (Addressing a total of 4 or more elements) Clinical Presentation: Unstable - unstable and unpredictable characteristics - safety risk (High) Clinical Decision Making: High Time In: 1334 Time Out: 1357 Total Visit Time: 23 minutes Total Treatment Time (skilled, billable minutes): 23 minutes Patient location at end of session: bed with head of bed elevated, none and RN aware Needs in reach. Upon discontinuation of Acute Care Physical Therapy Services or patient discharge from the hospitalthis note represents the current Physical Therapy Discharge Summary. PT Eval Care Plan & Goals (Active) PT - Balance/Coordination/Neuro Re-Education Dates: Start: 01/13/22 Sitting Dynamic/Static Balance Dates: Start: 01/13/22 Expected End: 01/31/22 Description: Pt will perform seated balance tasks with moderate assistance to improve safety with seated tasks. PT - Transfers Dates: Start: 01/13/22 Supine <-> Sit Dates: Start: 01/13/22 Expected End: 01/31/22 Description: Pt will perform bed mobility with moderate assistance in order to improve functional mobility and safety. Sit <-> Stand Dates: Start: 01/13/22 Expected End: 01/31/22 Description: Pt will perform sit to/from stand transfers with moderate assistance and of 2 people with bilateral handheld assistance in order to improve functional mobility and safety. Squat-Pivot Dates: Start: 01/13/22 Expected End: 01/31/22 Description: Pt will perform squat/pivot transfer to/from bed/chair/commode with moderate assistance of 2 people with bilateral handheld assistance in order to improve functional mobility and safety. Strength/ROM Dates: Start: 01/13/22 Expected End: 01/31/22 Description: Pt will initiate muscle contractions for bilateral upper & lower extremity exercises with minimal assistance in order to improve strength, maintain ROM, necessary for functional mobility. * RUI Velez - 01/13/2022 1:48 PM EDT Placement Plan Expected Discharge Date: 01/17/2022 Referred Level of Care: SNF Patient Choice for Post-Acute Providers Barriers: Medical Stability, Insurance Authorization Current Referrals and Status 1. [facility] Per CM conversation with patient's family, preference for SNF at discharge is [facility]. [employer] uploaded current clinical to [facility] for SNFs to review. [employer] will upload PT/OT Evals once they are available. LATONYA Velez, SHIPS EQUIPMENT ENGINEER Medical Social Work [phone] * Nelson Medina MD - 01/13/2022 12:11 PM EDT Orthopaedic Spine Surgery Progress Note: Luiza May is a 66 y.o. female who hx of alcohol abuse, anxiety, COPD, CHF, HTN, HLD, CVA and TIA, DVT, who presents initially as a hemorrhagic stroke alert but was found to have been a fall at home with unknown time down. Found to have a subdural hematoma and was taken for craniotomy with NSGY. Orthopaedics was consulted for chronic T12 compression fx. Last 24 Hours Patient able to state her name but repeatedly called out for her brother Antelmo. Was not oriented to place or date. After telling her she was at [facility], she repeated that back to me when asked city and state. Vitals Vitals: 01/13/22 1200 BP: 97/54 Pulse: 90 Resp: 20 Temp: Physical Exam GEN: resting in bed, A&Ox1, extubated Spine Exam Upper Extremity: Strength: Right Left C5 Deltoids 1/5 C6 Biceps 2/5 Wrist Extensors 5/5 5/5 C7 Triceps C8 Finger Flexors 4/5 4/5 First Dorsal Interossei 2/5 2/5 Lower Extremity Strength: Right Left Hip Flexors L2 1/5 1/5 Quadriceps L3 Anterior Tibialis L4 4/5 4/5 EHL L5 4/5 4/5 Hamstrings Gastrocsoleus S1 3/5 3/5 Sensation intact to light touch in all extremities Reflexes: Patellar L4 1+ 1+ Special Tests: Clonus (R/L): 0 / 0 Given her current mental state, difficult to assess if weakness is related to participation in examor neuro deficits. Laboratory Studies Lab Results Component Value Date WBC 10.20 01/13/2022 HGB 8.1 (L) 01/13/2022 HCT 27.6 (L) 01/13/2022 PLATELET 237 01/13/2022 MCV 94.2 01/13/2022 Lab Results Component Value Date SODIUM 141 01/13/2022 POTASSIUM 4.3 01/13/2022 CHLORIDE 105 01/13/2022 CO2 25 01/13/2022 BUN 23 01/13/2022 CREATSERUM 0.59 01/13/2022 GLUCOSE 118 (H) 01/13/2022 Lab Results Component Value Date INR 1.1 01/09/2022 INR 1.2 (H) 01/08/2022 INR 1.3 (H) 01/08/2022 PT 14.1 01/09/2022 PT 15.0 (H) 01/08/2022 PT 15.5 (H) 01/08/2022 Imaging/Cultures/Drains New Imaging: CT: chronic, mild compression fracture of T12 Assessment Luiza May is a 66 y.o. female with chronic T12 compression fx Plan - No emergent operative orthopaedic intervention indicated at this time. - Continue to monitor and perform exam as patient progresses. - PT/OT ok from ortho standpoint - upright xr thoracolumbar when able Nelson Medina MD Preliminary General Surgery Toe Pounder Pager [phone] * GIRISH Solis - 01/13/2022 8:20 AM EDT Acute Care BELT REPAIRER Speech/Language/Cognitive Evaluation Best mode of Communication: spoken language (regular speech) Communication Strategies: repeat directions, allow time, provide cues to improve understanding Discharge Recommendations: Based on the below outcome measures/assessment score(s) and BELT REPAIRER clinicaljudgment, discharge destination recommendation is: Deferred to PT/OT recomendations related to mobility Barriers to discharge home: Need for 1:1 assist to ensure safety with all PO intake Supporting factors for discharge setting: Impaired swallow function limiting nutritional status andsafety with oral intake Acute BELT REPAIRER Outcomes Tracking Communicate basic wants and needs?: no Demo insight/appreciation of deficits?: no Complete basic problem solving?: no Current therapy frequency recommendation in acute: Speech/Lang/Cog Therapy Frequency: 3 times a week Swallow Therapy Frequency: 3 times a week Clinical Impression: Luiza May presents with at least moderate cognitive/linguistic deficits and receptive/expressive aphasia, in the setting of R SDH with craniectomy and evacuation. Pt demonstrating improved alertness this date. Deficits include auditory comprehension, verbal expression, insight, orientation, and short-term memory. Pt would benefit from continued BELT REPAIRER services to address the above deficits. Patient Instruction/Education this session: Pt educated on results/recommendations. Unable to determine if pt demonstrated understanding. Plan for next session: Address goals per POC. Educate family if present. Subjective: Pt asleep upon BELT REPAIRER arrival. Pt easily aroused per verbal cues. Lights turned on and tv off to limit distractions. Pt with improved alertness, though demonstrating what appears as visual neglect/inattention? Pain: General Pain Documentation (Adult, OB, Peds) Presence of Pain: denies pain/discomfort Comfort/Acceptable General Pain Level/Goal: 3 DVPRS (Defense and Veterans Pain Rating Scale) DVPRS: Rest: 8- severe pain DVPRS: Activity: 8- severe pain General Pain Descriptors Pain Frequency: intermittent, occasional Pain Quality: other (see comments) (unable to describe) Factors That Aggravate Pain: unknown Factors That Relieve Pain: medications, opiod Patient History Comments: Luiza May is a 66 y.o. female who presents to the hospital on 01/08. Patient found on floor 7/6 altered and not acting like herself. Patient taken to OSH per EMS. CTH demonstrated right-sided SDH with 1.5 cm MLS and mass effect. She takes baby ASA at home. She was intubated for airway protection and transported to [facility] for [facility]G intervention. Upon arrival to [facility], a full trauma workup was completed identifying a chronic compression fracture of T12. CTH demonstrated an acute right SDH with 1 cm leftward MLS and mild subfalacine and uncal herniation. The patient was taken to OR per NSG for a right-sided decompressive craniectomy. Patient's history includes remote right-sided CVA, COPD on home O2, HTN, previous RLE DVT, ETOH-use, and Takotsubo cardiomyopathy. CT head 01/08/22: IMPRESSION: 1. Postoperative changes of interval right craniectomy and right subdural hematoma evacuation with placement of an epidural drain. Residual subdural hemorrhage is present predominantly along the inferior frontal lobe and falx. Mass effect has significantly improved in comparison to prior study. 2. Previously noted area of hypoattenuation in the right occipital lobe appears less conspicuous and may again relate to a subacute infarct. Decreased conspicuity may be due to improved edema following decompression. Areas of nonspecific edema in the right cerebral hemisphere and more chronic appearing infarct in the left parietal lobe are similar to prior study. 3. Decreased mass effect upon the ventricular system. Left lateral ventricle stable to slightly smaller compared with the preoperative exam. Prior Level of Function: Unable to gather history as pt is not a reliable historian. Respiratory Status: Nasal Cannula: 2L EXPRESSIVE LANGUAGE: Impaired Task: Imitates Gestures Impaired Automatic Speech Impaired (Able to count to 10 with min cues) Phrase Completion Impaired Confrontation Naming Impaired (c/b visual deficits?) Answering 'wh' Questions Functional Repetition Intact Verbalize Basic Wants and Needs Impaired Functional Participation in Conversation Impaired Expressive Language Characteristics: Fluent, Anomia and Perseveration RECEPTIVE LANGUAGE: Impaired Task: Identify Functional Objects Unable to assess Follow 1-Step Commands Impaired Follow 2+ Step Commands Answers Basic Y/N Questions Functional Answers Complex Y/N Questions Impaired Conversational Comprehension Impaired SOCIAL INTERACTION/PRAGMATICS: Impaired Task: Initiates Conversation Impaired Takes Turns in Communication Functional Maintains Eye Contact Impaired Maintains Topic Impaired Shifts Topics Appropriately Impaired Affect Impaired Responds Appropriately to Questions Impaired COGNITION: Impaired Task: Arousal/Alertness Delayed responses to stimuli Orientation Level Oriented to person Safety Judgment Decreased awareness of need for safety, Decreased awareness of need for assistance Awareness of Errors Assistance required to correct errors made, Decreased awareness of errors Deficits Decreased awareness of deficits Attention Span Attends with cues to redirect, Difficulty attending to directions Memory Decreased short term memory Problem Solving Assistance required to generate solutions, Assistance required to identify errors made Cognition Comments CRANIAL NERVE EXAMINATION: Cranial Nerve Exam CN V (Trigeminal) normal blink CN VII (Facial) intact corneal reflex CN IX (glossopharyngeal) uvula is midline CN X (Vagus) uvula is midline CN XI (Accessory) unable to raise head off pillow CN XII (Hypoglossal) clearly articulated speech MOTOR SPEECH TASKS: Intact VOCAL PARAMETERS: Intact Subjective Voice Evaluation Grade of dysphonia (G): 1 Roughness (R): 1 Breathiness (B): 1 Asthenia (A): 1 Strain (S): 1 BELT REPAIRER Outcomes: BELT REPAIRER Outcomes / Standardized Measures Score The Orientation Log (O-Log) Orientation Log City: correct spontaneously or upon first free recall attempt Kind of Place: correct upon logical cueing Name of Hospital: correct upon multiple choice or phonemic cueing Month: correct upon multiple choice or phonemic cueing Date: incorrect despite cueing, inappropriate response or unable to respond. Year: incorrect despite cueing, inappropriate response or unable to respond. Day of Week: incorrect despite cueing, inappropriate response or unable to respond. Clock Time: correct upon logical cueing Etiology / Event: correct spontaneously or upon first free recall attempt Pathology Deficits: incorrect despite cueing, inappropriate response or unable to respond. Total Score: 12 Acute BELT REPAIRER Goals Plan of Care by Marni Doan BELT REPAIRER at 01/13/2022 8:20 AM Version 1 of 1 Problem: BELT REPAIRER - Dysphagia Goal: PO Trial 3 Description: Patient will swallow trials of advancing solids demonstrating appropriate alertness, timely/effective mastication, bolus formation and oral bolus transit without overt clinical signs/symptoms of aspiration, across 1-3 sessions to determine readiness for diet advancement. Outcome: Ongoing Problem: BELT REPAIRER - Language Goal: Command Following Description: Patient will complete simple one-step commands (minimum of x10) to 90% success with mod cues as needed in order to improve direction following for functional gains in ability to participate more independently in care. Outcome: Ongoing Goal: Yes/No Response Description: Patient will answer moderate y/n questions (minimum of x10 related to current situation/environment, to 100% success with min cues, after 2-3 sessions in order to improve ability to answer medical questions/questions related to care. Outcome: Ongoing Problem: BELT REPAIRER - Cognition Goal: Orientation Goal Description: Patient will recall/implement use of orientation strategies, given min -no cues, to demonstrate improved awareness and insight as measured by achieving a 27/30 on The Orientation Log, across 1-2 sessions. Outcome: Ongoing I was assisted by GIRISH Alcala for today's session. Speech Language Pathologist: GIRISH Solis Time In: 819 Time Out: 904 Total Visit Time: 45 minutes Total Treatment Time (skilled, billable minutes): 45 minutes Patient location at end of session: bed with head of bed elevated Alarms on at end of session: bed alarm Needs in reach. yes Upon discontinuation of Acute Care Speech Therapy Services or patient discharge from the hospital this note represents the current Speech Therapy Discharge Summary * GIRISH Solis - 01/13/2022 8:20 AM EDT Acute Care Speech Language Pathology Treatment Diet Recommendations: Recommended Method of Nutrition: PO, Short-term alternate nutrition Recommended Diet Grade: dysphagia- pureed (IDDSI 4) Recommended Liquid Consistency: liquid- thin (IDDSI 0) Medications: crushed (in puree) Type of Cues/Supervision: 1:1 supervision Assistance: nurse/aide, family Best mode of Communication: spoken language (regular speech) Discharge Recommendations: Based on the below outcome measures/assessment score(s), and BELT REPAIRER clinical judgment, discharge destination recommendation is: Deferred to PT/OT recomendations related to mobility Barriers to discharge home: Need for 1:1 assist to ensure safety with all PO intake Supporting factors for discharge setting: Impaired swallow function limiting nutritional status andsafety with oral intake Acute BELT REPAIRER Outcomes Tracking Communicate basic wants and needs?: no Demo insight/appreciation of deficits?: no Complete basic problem solving?: no Current therapy frequency recommendation in acute: Speech/Lang/Cog Therapy Frequency: 3 times a week Swallow Therapy Frequency: 3 times a week Clinical Impression: Pt presents with oral dysphagia and presumed functional pharyngeal swallow in the setting of R SDH with craniectomy and evacuation. Pt demonstrating improved alertness and attention. Pt accepted sips of thin liquids via straw, with no overt s/s of aspiration. Pt demonstrated slow acceptance of applesauce with verbal cues and verbal encouragement. Recommend puree textures and thin liquids, meds in puree, with 1:1 supervision. Do not anticipate pt will meet caloric needs via oral intake and will need nutrition via DHT. BELT REPAIRER will continue to follow along for diet management. Subjective: Pt seen for swallowing following speech/cognition evaluation. Pt requiring cues to follow directions and sustain attention to tasks. Pt reports minimal discomfort when swallowing, but wasunable to provide further explanation. Pain: General Pain Documentation (Adult, OB, Peds) Presence of Pain: denies pain/discomfort Respiratory Status: Nasal Cannula: 2L Acute BELT REPAIRER Goals Plan of Care by GIRISH Solis at 01/13/2022 8:20 AM Version 1 of 1 Problem: BELT REPAIRER - Dysphagia Goal: PO Trial 3 Description: Patient will swallow trials of advancing solids demonstrating appropriate alertness, timely/effective mastication, bolus formation and oral bolus transit without overt clinical signs/symptoms of aspiration, across 1-3 sessions to determine readiness for diet advancement. Outcome: Ongoing --Pt accepted bites of puree and sips of water with verbal encouragement and verbal cues. Pt took bites of applesauce demonstrating limited mandibular movement/opening and acceptance of bolus. No oral residue evident post swallow. Pt took single sips of thin liquids via straw (3 oz) with no overt s/s of aspiration. Clear vocal quality remained. Pt safe to initiate diet at this time. Patient Instruction/Education this session: Pt educated on results/recommendations of session. Unable to determine if carry over on information was met. Plan for next session: Provide advanced solids with pt and determine appropriateness for diet leveladvancement. I was assisted by GIRISH Alcala for today's session. Speech Language Pathologist: GIRISH Solis Time In: 819 Time Out: 904 Total Visit Time: 45 minutes Total Treatment Time (skilled, billable minutes): 45 minutes Patient location at end of session: bed with head of bed elevated Alarms on at end of session: bed alarm Needs in reach. Upon discontinuation of Acute Care Speech Therapy Services or patient discharge from the hospital this note represents the current Speech Therapy Discharge Summary * GIRISH Lester - 01/12/2022 3:00 PM EDT Acute Care Speech Language Pathology Treatment Diet Recommendations: Recommended Method of Nutrition: NPO Medications: non-oral Type of Cues/Supervision: 1:1 supervision Assistance: nurse/aide Discharge Recommendations: Based on the below outcome measures/assessment score(s), and BELT REPAIRER clinical judgment, discharge destination recommendation is: Deferred to PT/OT. At discharge, recommend further BELT REPAIRER services targeting: dysphagia Supporting factors for discharge setting: Impaired swallow function limiting nutritional status andsafety with oral intake Acute BELT REPAIRER Outcomes Tracking Communicate basic wants and needs?: no Basic wants and needs - Details: not attempts to communicate during this encounter Demo insight/appreciation of deficits?: no Complete basic problem solving?: no Current therapy frequency recommendation in acute: Swallow Therapy Frequency: 5 times a week Clinical Impression: Luiza May presents with presume ongoing oropharyngeal dysphagia s/p R SDH with subsequent craniectomy and evacuation. The pt's assessment this date was limited by lethargy/drowsiness. RN reports pt got dilaudid around noon. Question medication impact vs medical change. Subjective: Patient is drowsy, lethargic, opens eyes but does not verbally respond to this therapist despite max verbal and tactile cues (wet washcloth to face). Pt does nod her head when asked if she is tired. Pain: General Pain Documentation (Adult, OB, Peds) Presence of Pain: denies pain/discomfort Respiratory Status: Nasal Cannula: respirations easy/unlabored. O2 sats 91%. Acute BELT REPAIRER Goals Plan of Care by GIRISH Lester at 01/12/2022 3:00 PM Version 1 of 1 Problem: BELT REPAIRER - Dysphagia Goal: PO Trial 2 Description: Patient will accept various trials of liquid and solid consistencies (8-10 trials of each consistency) with no signs/symptoms of laryngeal penetration/aspiration and no respiratory complications to determine the readiness for diet advancement vs an instrumental swallow assessment, over the course of 1-2 session. Outcome: Ongoing Tx: Goal addressed, ongoing. The patient drowsy/lethargic, but opens eyes and nods her head that she is tired. BELT REPAIRER provided brief education regarding rationale for swallow treatment/re-assessment with no verbal response from patient. BELT REPAIRER utilized moistened oral toothetes on pt's lips with no response noted and presented both ge spoon between lips and a spoon with a small ice chip between lips with no labial pursuit and nonotable response or even trying to pull head away. BELT REPAIRER communicated same with RN. Patient Instruction/Education this session: Education provided regarding rationale for treatment session. Pt will benefit from ongoing education. Plan for next session: Ongoing re-assessment to determine readiness for instrumental vs readiness for diet initiation. BELT REPAIRER Outcomes: FOIS 1 I was assisted by Katheryn Colon, BELT REPAIRER Student for today's session. and I used gloves and facemask intoday's patient interaction. Speech Language Pathologist: GIRISH Lester Time In: 1500 Time Out: 1508 Total Visit Time: 8 minutes Total Treatment Time (skilled, billable minutes): 8 minutes Patient location at end of session: bed with head of bed elevated Alarms on at end of session: RN aware and no alarms were changed during this encounter Needs in reach. Upon discontinuation of Acute Care Speech Therapy Services or patient discharge from the hospital this note represents the current Speech Therapy Discharge Summary * GIRISH Lester - 01/12/2022 3:00 PM EDT Acute Care Speech-Language Pathology Attempt Note Attempted to see pt for speech/language/cognitive evaluation; however, pt currently unable to maintain appropriate alertness for same. Will re-attempt as able/appropriate. No charge Ying Linda MS [facility]BELT REPAIRER #[id number] Pager# [phone] Can also be reached via [employer] secure chat Wed-Wed between [phone] * Radha Luke RN - 01/12/2022 12:57 PM EDT Discharge Planning Patient Assessment Admission Assessment Patient Assessment Completed: Yes Anticipated discharge disposition: Residential Facility Reason for Admission: SDH s/p R hemicraniectomy on 01/08/2022 Is the patient able to participate in the assessment?: No Information source: Spouse, Other (brother) Information Source Name/Contact: dex patricia Significant Other [phone] Demographics Verified and Updated: Yes Has the patient been admitted to any hospital in the last 30 days?: No Advanced Care Planning Has the patient completed Advance Directives?: Not Completed Referral to Social Work for Advance Care Planning? : Patient Declines Legal Next of Kin Does the patient have a Guardian?: No Spouse: Yes Name and Contact information: dex patricia Significant Other [phone] Referral to Social Work to Identify Legal Next of Kin?: No Reviewed and Updated in Demographics? : Yes Outpatient Providers Does patient have a primary care physician? : Yes When was the patient's last PCP visit?: > 30 days Does the patient follow any specialists?: No Reviewed and updated Care Team?: Yes Patient Care Team: Maryam Franco MD as PCP - General (Internal Medicine) Environment/Caregivers Is the patient from a facility or chcf?: No Patient lives with: Spouse or Partner Living Environment: House How many steps does the patient have to navigate to enter or inside the home? : 3 Does the patient have a first floor set-up with bed and bathroom?: Yes Patient Caregiving Responsibilities: Self Patient-identified caregiver/support network: Family Who does the patient identify as a teachable caregiver(s)?: Spouse or Partner Services Does the patient use a home health or hospice agency?: No Current with dialysis?: No Does the patient use any community programs or services?: No Does patient use DME? : none Does the patient use oxygen?: No Does patient use medical supplies? : none Anticipated Changes Related to Illness/Injury? : Yes Inability to care for self?: Yes Inability to care for dependents?: N/A Inability to return to school/work?: N/A Initial ADLs Prior to Arrival What is the patient's baseline physical functioning prior to this acute illness?: independent What is the patient's baseline cognitive functioning prior to this acute illness?: independent Is the patient's baseline functioning changed by this acute illness? : Yes Changes observed : Physical Concerns with patient being able to care for themselves at home? : Yes Are there therapy or specialists consults?: Yes Select consult type: PT, OT, Social Work Does the patient's home require any home modifications for discharge? : Unknown at this time CM to recommend therapy or other consults? : No Medication Management Does the patient have prescription insurance coverage? : Yes Is the patient on Anticoagulation? : No No Pharmacies Listed Account Resolution Expert Does the patient or business office representative express financial concerns? : No Employed?: Retired Coping/Stress Concerns about patient s coping and stress?: No Concerns about patient s caregiver s coping and stress?: No Values and Beliefs Cultural or rastafarian practices that may impact discharge planning and/or medical care?: No Initial Discharge Planning Anticipated discharge disposition: Residential Facility Transportation Available for Discharge: Ambulance Anticipated DME: walker Anticipated Services at Discharge: Residential, Physical Therapy, Occupational Therapy Patient Assessment Completed: Yes Risk of Readmission: 4.1 Category Reference: High:16-100 Mod-High:10-16 Mod-Low: 5-10 Low: 0-5 Expected Discharge Date: 01/13/2022 Discharge Planning Summary Luiza May is a 66 y.o. female with a past history of remote right-sided CVA, COPD on home O2,HTN, previous RLE DVT, ETOH-use, and Takotsubo cardiomyopathy. Patient found on floor 7/6 altered and not acting like herself. Patient taken to OSH per EMS. CTH demonstrated right-sided SDH with 1.5 cm MLS and mass effect. She takes baby ASA at home. She was intubated for airway protection and transported to [facility] for [facility]G intervention. Upon arrival to [facility], a full trauma workup was completed identifying a chronic compression fracture of T12. CTH demonstrated an acute right SDH with 1 cm leftward MLS and mild subfalacine and uncal herniation. The patient was taken to OR per NSG for a right-sided decompressive craniectomy. Met with patient and her family for initial assessment. Introduced myself and explained role of housing case manager. Spouse and brother at bedside, both are agreeable that patient will likely need SNF placement afterdischarge and request discharge [facility]. SW updated. CM and SW will continue to follow to assess ongoing needs and assist with discharge planning. Case Management Plan manager of radiology will make all appropriate referrals and follow up appointments and order all necessaryequipment and supplies. Paul Tran RN, BSN, ACM Clinical Photonics Engineering Technologist * Pete Sorto, PT - 01/12/2022 11:39 AM EDT Physical Therapy Attempt Note 01/12/2022 PT Therapy Completed: Attempted Attempted Reason: Patient is not medically optimized to tolerate therapy program (Pending further Ortho Spine recs due to T12 Compression Fx). Also IHIS messaged the neurosurgery team to see if the patient needed a helmet as it appears the drain was removed over the weekend via the chart. Pete Sorto PT Time In: 1139 Time Out: 1139 Total Visit Time: 0 minutes Total Treatment Time (skilled, billable minutes): 0 minutes * Lowell Bryant MD - 01/12/2022 9:18 AM EDT NEUROSURGERY PROGRESS NOTE: 01/12/22 S: NAEO O: PE: awake Ox1 PERRL EOMI FS FC x4 R side 5/5 LUE 4/5 LLE 5/5 Incision cdi Flap soft Temp: [98 F (36.7 C)-98.6 F (37 C)] 98.5 F (36.9 C) Pulse (Heart Rate): [77-102] 85 Resp Rate: [12-22] 16 BP: (88-120)/(44-64) 107/49 O2 Sat (%): [95 %-100 %] 98 % Weight: [60.9 kg (134 lb 4.2 oz)] 60.9 kg (134 lb 4.2 oz) Ventilator/Non- Ventilator Mode: CPAP/PS Set Respiratory Rate/Release Rate: 16 PEEP (cm H2O): 6 Pressure Support (cmH2O): 10 O2 Sat (%): 98 % (01/13 800) O2 Device: nasal cannula (01/13 720) Flow (L/min): 2 (01/12 0000) I/O last 3 completed shifts: In: 1214 [NG/GT:1214] Out: 850 [Urine:850] ICP: No data recorded WBC/Hgb/Hct/Plts: 10.39/7.7/25.7/146 (01/12 130) Na/K+/Phos/Mg/Ca: 144/4.1/2.2/1.7/-- (01/12 130) Bun/Creat/Cl/CO2/Glucose: 16/0.55/106/32/124 (07/11 0130) Imaging: postop CTH with expected findings A/P: Luiza May is a 66 y.o. female p/w SDH s/p R hemicraniectomy on 01/08/2022 Neuro: neuro checks, dc drain today, incision open to air Cards: SBP<160 Resp: per ICU, wean O2 as able ID: Ancef completed FEN/GI: BELT REPAIRER for further recs/evaluation PPX: SCDs, Lovenox Dispo: pending PTOT Please page [phone]) with questions. Active Problems: SDH (subdural hematoma) Anemia (Low HGB) Present on Admission: SDH (subdural hematoma) * Rachel Mccracken OT - 01/12/2022 8:13 AM EDT Occupational Therapy Attempt Note 01/12/2022 OT Therapy Completed: Attempted Attempted Reason: Patient is not medically optimized to tolerate therapy program (Pending further Ortho Spine recs due to T12 Compression Fx) Rachel Mccracken OT Time In: 812 Time Out: 812 Total Visit Time: 0 minutes Total Treatment Time (skilled, billable minutes): 0 minutes * Crys Brar MD - 01/11/2022 10:31 AM EDT NEUROSURGERY PROGRESS NOTE: 01/11/22 S: NAEON O: PE: awake Ox2 PERRL EOMI FS FC x4 R side 5/5 LUE 4/5 LLE 5/5 Incision cdi Temp: [97.6 F (36.4 C)-98.8 F (37.1 C)] 98.1 F (36.7 C) Pulse (Heart Rate): [71-103] 96 Resp Rate: [2-41] 21 BP: (92-119)/(43-66) 113/53 O2 Sat (%): [92 %-100 %] 96 % Weight: [58.9 kg (129 lb 13.6 oz)] 58.9 kg (129 lb 13.6 oz) Ventilator/Non- Ventilator Mode: CPAP/PS Set Respiratory Rate/Release Rate: 16 PEEP (cm H2O): 6 Pressure Support (cmH2O): 10 O2 Sat (%): 96 % (01/11 1000) O2 Device: nasal cannula (01/12 800) Flow (L/min): 2 (01/12 800) I/O last 3 completed shifts: In: 968.5 [I.V.:650; NG/GT:298; IV Piggyback:20.6] Out: 1045 [Urine:1025; Other:20] ICP: No data recorded WBC/Hgb/Hct/Plts: 11.52/8.1/26.5/209 (01/11 5) Na/K+/Phos/Mg/Ca: 142/4.5/3.1/2.1/-- (01/11 5) Bun/Creat/Cl/CO2/Glucose: 10/0.64/106/31/106 (01/11 5-01/11 603) Imaging: postop CTH with expected findings A/P: Luiza May is a 66 y.o. female p/w SDH s/p R hemicraniectomy on 01/08/2022 Neuro: neuro checks, dc drain today, incision open to air Cards: SBP<160 Resp: per ICU, wean O2 as able ID: Ancef completed FEN/GI: DIET NPO WITHOUT meds - will reach out to BELT REPAIRER for further recs/evaluation PPX: SCDs, Lovenox Dispo: pending PTOT Please page [phone]) with questions. Active Problems: SDH (subdural hematoma) Anemia (Low HGB) Present on Admission: SDH (subdural hematoma) * Becky Mcgowan RD - 01/11/2022 8:30 AM EDT Nutrition Consult: TF assessment Nutrition Recommendations and Plan of Care: 1. TF: Continue to advance 10 ml Q4 hours to Goal Vital AF 1.2 @ 60 ml/hr + 30 ml water flush Q6 hours to provide 1440 ml formula volume, 1728 kcal (31 kcal/kg admit wt), 108 g pro (2 g/kg admit wt) and 1287 ml free water/d. 2. Diet: NPO. Advancement per BELT REPAIRER. 3. RD to follow. Pt at nutrition risk secondary to acute medical condition, NPO status and TF S/O: Luiza May is a 66 y.o. female who presented with acute right SHD and she is now POD#3 s/p decompressive craniectomy. She is on nasal cannula this morning. Past History As above + CVA, COPD on home O2 Nutrition Hx: Swallow eval completed 01/10 and BELT REPAIRER recommended NPO status. DHT in place for TF and medication administration. Team has started on TF and pt is tolerating well thus far. Recommended changes to TF as above. Unable to obtain nutrition hx from pt. Current Diet Order Current Diet Orders Procedures DIET NPO WITHOUT meds Patient to remain NPO until bedside swallow evaluation. Standing Status: Standing Number of Occurrences: 1 Order Specific Question: NPO Meds: Answer: WITHOUT meds Current TF: Vital AF 1.2 @ 40 ml/hr, free water flush not specified Ht: 5' 4 (estimated) Wt: 121#/55 kg IBW:120#/54 kg %IBW 100% BMI: 21 Labs- Na: 142 Osm: 297 BUN: 10 Cr: 0.64 K: 4.5 Phos: 3.1 M.1 Recent glucose: 85-106 Medications- SSI Q6 hours, senna Skin: Nacho: 12 Incision to R frontal region Edema: - GI:small bore nasoenteric tube (tip confirmed in stomach per imaging 01/10) Estimated Nutrition Needs Wt used: 55 kg, admit wt Estimated Kcal Needs: 1695-1484 (25-30 kcal/kg admit wt) Estimated Pro Needs: 80-110 (1.5-2 g/kg admit wt) Estimated fluid needs: 1914-7040 (30-35 ml/kg admit wt) Malnutrition Statement Indications of Malnutrition: Unable to assess- unable to obtain nutrition hx based on the AND/ASPEN Malnutrition Criteria [address],LD, CNSC, RN Pager: [phone] * GIRISH Childers - 01/10/2022 11:50 AM EDT Acute Care Speech-Language Pathology Clinical Swallow Evaluation Diet recommendation: Recommended Method of Nutrition: NPO Recommended Medication Administration (as appropriate per MD): In puree Type of Cues/Supervision: 1:1 supervision (ice chips and small sips of water) Assistance: nurse/aide (ice chips and small sips of water) Other Recommendations: *Consider limited ice chips and small sips of water following oral care, given strict 1:1 RN supervision to assist in secretions clearance and reduce risk of disuse atrophy. *To prevent potential development of aspiration pneumonia/nosocomial infections, RECOMMEND: Oral care routine q4h and HOB upright as tolerated Referrals: Speech Language Pathologist (speech/language/cognitive evaluation) Discharge Recommendations: Based on the below outcome measures/assessment score(s) and BELT REPAIRER clinicaljudgment, discharge destination recommendation is: Deferred to PT/OT recomendations related to mobility Barriers to discharge home: Need for 1:1 assist to ensure safety with all PO intake Supporting factors for discharge setting: Impaired swallow function limiting nutritional status andsafety with oral intake Acute BELT REPAIRER Outcomes Tracking Communicate basic wants and needs?: yes Demo insight/appreciation of deficits?: no Complete basic problem solving?: no Current therapy frequency recommendation in acute care: Swallow Therapy Frequency: 5 times a week Date of Admission: 01/08/2022 Date of Evaluation: 01/10/2022 Attending Physician: Veronica Velez MD General Patient Information Name: Luiza May Gender: female Date of : 1955 Primary Diagnosis: ICD-10-CM 1. SDH (subdural hematoma) S06.5X9A No past medical history on file. Past Surgical History: Procedure Laterality Date EVACUATION BRAIN HEMATOMA BY CRANIECTOMY/CRANIOTOMY SUPRATENTORIAL Right 01/08/2022 Laterality: Right; Surgeon: Severo Jurado MD; Location: [facility] MAIN OR Pain: General Pain Documentation (Adult, OB, Peds) Presence of Pain: complains of pain/discomfort General Pain Descriptors Pain Frequency: intermittent, occasional Pain Quality: other (see comments) (unable to describe) Factors That Aggravate Pain: unknown Factors That Relieve Pain: medications, opiod Patient History Comments: Pt is a 66 y.o. female who presents per chart with a past history of remote right-sided CVA, COPD on home O2, HTN, previous RLE DVT, ETOH-use, and Takotsubo cardiomyopathy. Patient found on floor 7/6 altered and not acting like herself. Patient taken to OSH per EMS. CTH demonstrated right-sided SDH with 1.5 cm MLS and mass effect. She takes baby ASA at home. She was intubated for airway protection and transported to [facility] for [facility]G intervention. Upon arrival to [facility], a full trauma workup was completed identifying a chronic compression fracture of T12. CTH demonstrated an acute right SDH with 1 cm leftward MLS and mild subfalacine and uncal herniation. The patient was taken to OR per NSG for a right-sided decompressive craniectomy. Prior BELT REPAIRER history: None on file. Current Method of Nutrition: Route of Nutrition: NPO Respiratory Status: O2 Device: nasal cannula O2 Sat (%): 99 % Resp Rate: 22 Subjective: Pt continuously stating Oh god throughout evaluation however unable to state if in pain. Required encouragement for po trials. Family members at bedside. RN entered room at end of evaluation and BELT REPAIRER informed RN of recommendations from today's evaluation. Exam limited by cognition: Yes Objective Evaluation: Oral Motor: Unable to follow directions consistently to complete Cranial Nerve Exam CN V (Trigeminal) not tested CN VII (Facial) not tested CN IX (Glossopharyngeal) not tested CN X (Vagus) not tested CN XI (Accessory) not tested CN XII (Hypoglossal) not tested Vocal Quality: hoarse, harsh GRBAS: A perceptual rating scale for voice parameters Rating scale of 0 to 3 0 = no impairment 1 = minimal to mild impairment 2 = moderate impairment 3 = severe impairment Subjective Voice Evaluation Grade of dysphonia (G): 2 Roughness (R): 2 Breathiness (B): 1 Asthenia (A): 2 Strain (S): 1 Positioning: High Leiva's (60-90 degrees) Anticipatory Phase: Functional Foods and Liquids Trialed: Modality: Amount: Ice Teaspoon x3 Thin Straw x6 Dysphagia- pureed (IDDSI 4) Teaspoon x2 Oral Phase Function Comments Oral Mucosa Intact Dentition Natural teeth: Missing many Labial Closure Intact Mastication Unable to assess Oral Stasis Absent Cough before the swallow Absent Oral Phase Summary: Oral phase of the swallow appears functional with consistencies assessed, however unable to assess chewable solids due to confusion/AMS. Pharyngeal Phase Function Comments Perceived Swallow Present Cough Response Yes, Immediate, Delayed Throat Clear No Subjective Complaint of Residue Absent Pharyngeal Phase Summary: Pt demonstrated intermittent clinical s/s of aspiration including immediate and delayed cough with thin liquids. Pt also noted to have cough prior to po trials. No clinical s/s of aspiration with ice chips or puree solids. [place] Swallow Screen: [place] Swallow Screening Screening Exclusion Criteria: NPO order for other medical/surgical reasons [place] Swallow Screening Result: postpone until no longer NPO for other medical/surgical reasons Voice and Swallow Outcomes: Functional Oral Intake Scale: Level 1 - No oral intake Clinical Impression: Luiza May presents with possible oropharyngeal dysphagia in the setting of right-sided SDH with MLS and mass effect. Pt with intermittent clinical s/s of aspiration throughout evaluation, however evaluation also limited by AMS. Given current clinical presentation, recommend pt remain NPO. Canhave meds in puree. Can have ice chips and small sips of water with 1:1 supervision to reduce risk o f disuse atrophy. BELT REPAIRER to follow for ongoing dysphagia management and to determine readiness for diet initiation vs need for instrumental swallow study. Plan for Next Session: determine readiness for diet initiation vs need for instrumental swallow study Patient Instruction/Education Provided this Session: educated family regarding role of BELT REPAIRER and purpose of NPO recommendations Acute BELT REPAIRER Goals Plan of Care by GIRISH Childers at 01/10/2022 11:50 AM Version 1 of 1 Problem: BELT REPAIRER - Dysphagia Goal: PO Trial 2 Description: Patient will accept various trials of liquid and solid consistencies (8-10 trials of each consistency) with no signs/symptoms of laryngeal penetration/aspiration and no respiratory complications to determine the readiness for diet advancement vs an instrumental swallow assessment, over the course of 1-2 session. Outcome: Ongoing Speech Language Pathologist: GIRISH Childers Time In: 1150 Time Out: 1209 Total Visit Time: 19 minutes Total Treatment Time (skilled, billable minutes): 19 minutes I used facemask, protective eye shield, and gloves in today's patient interaction. Patient location at end of session: bed with head of bed elevated Alarms on at end of session: Family and RN at bedside Needs in reach. Upon discontinuation of Acute Care Speech Therapy Services or patient discharge from the hospital this note represents the current Speech Therapy Discharge Summary * Dionicio Pacheco, L D RN-AGRICULTURE WORKER - 01/10/2022 10:47 AM EDT NEUROCRITICAL CARE HISTORY AND PHYSICAL HOSPITAL VISIT DEMOGRAPHICS Patient: Luiza May Code status: Full Code Admission date: 01/08/2022 2:26 PM Hospital days: LOS: 1 day CHIEF COMPLAINT SDH HISTORY OF PRESENT ILLNESS Luiza May is a 66 y.o. female with a past history of remote right-sided CVA, COPD on home O2,HTN, previous RLE DVT, ETOH-use, and Takotsubo cardiomyopathy. Patient found on floor 01/07 altered and not acting like herself. Patient taken to OSH per EMS. CTH demonstrated right-sided SDH with 1.5 cm MLS and mass effect. She takes baby ASA at home. She was intubated for airway protection and transported [facility] for [facility] intervention. Upon arrival to [facility], a full trauma workup was completed identifying a chronic compression fracture of T12. CTH demonstrated an acute right SDH with 1 cm leftward MLS and mild subfalacine and uncal herniation. The patient was taken to OR per NSG for a right-sided decompressive craniectomy. 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 PERRL, gaze midline, EOMI visual smith grossly intact. Lethargic but arouses easily, poor attention. Oriented to self, that she is in hospital, thatshe fell, disoriented to year. Follows commands in all 4 extremities with equal strength ASSESSMENT AND PLAN Neuro: (01/08/2022) 2 Days Post-Op s/p right-sided DHC Right-Sided SDH with 1.5 cm MLS and Mass Effect Chronic Compression Fracture of T12 (POA) Mild Subfalacine and Uncal Herniation Right occipital lobe subacute to chronic infarct - SDH Management: - Monitor neurostatus with neurochecks Q4H - Prevent further expansion with goal SBP <160 (see cards) - 01/08 NSGY consult: right-sided decompressive hemicran - ASA reversed with DDAVP 0.4 mcg/kg (28 mcg) x1 - Keppra x 7 days per NSGY - Imaging: - 01/08 1507: Initial CT H: acute right SDH with leftward 1 cm MLS and mild subfalacine &uncal herniation. Asymmetrical enlargement of the left temporal horn, raising concern for trapped ventricle.Prominent area of low-attenuation in the right occipital lobe, concerning for a late subacute to chronic infarct. - 01/08 Post-op CTH: post-op changes with epidural drain placement. Residual SDH present predominantly along inferior frontal lobe and falx. Mass effect has significantly improved in comparison. Right occipital lobe hypoattentuation may indicated subacute infarct. Decreased mass effect. Left lateral ventricle stable and decreased in size. - Cytotoxic Cerebral Edema Management: - Goal Na 135 - 145; monitor Na QHS Recent Labs 01/08/22 1453 01/08/22 1656 01/08/22 1912 01/09/22 0158 01/09/22 2320 SODIUM 137 137 139 141 141 143 OSMOLALITY 291 -- 297 295 298 CHLORIDE 104 -- 103 104 107 - Hemorrhage presumably 2/2 trauma etiology; evaluation for cause and source: - Complete TTE (see cards) ordered - Obtain LDL level and statin therapy if indicated (see cards) ordered - Obtain HA1C level (see endo) ordered - Defer antiplatelet therapy and therapeutic anticoagulation - Consider urine drug screen on admission if no stroke risk factors ordered - Consider hypercoagulability panel 24H-post tPA if no stroke risk factors - Initiate VTE prophylaxis after bleed stability established (see heme) - Pain/Sedation management - Tylenol 650mg Q4H PRN - Oxycodone 5mg Q4H PRN - Dilaudid 0.5-1mg Q3H PRN - T12 Compression Fracture: - Orthopedic Surgery Consulted: no emergent operative orthopedic intervention, recommend standing XR of T/L spine when able. Psych: Anxiety Insomnia ETOH-use, hx - Continue home Hydroxyzine 25 mg TID PRN - Hold Home Zolpidem 10 mg daily Pulm: COPD on home oxygen 3L at baseline Acute Respiratory Failure 2/2 Acute SDH - 01/08 Intubated for AMS 01/09 extubated Ventilator/Non-Ventilator Mode: CPAP/PS Set Respiratory Rate/Release Rate: 16 PEEP (cm H2O): 6 Pressure Support (cmH2O): 10 O2 Sat (%): 99 % (01/10 901) O2 Device: nasal cannula (01/10 901) Flow (L/min): 3 (01/10 810) Oxygen Concentration (%): 40 (01/10 810) - Goal SpO2 >92%; wean FiO2 as tolerated - - TIV4CPP, encourage pulmonary toileting - Continue home breathing treatments, scheduled albuterol while encephalopathic - BiPAP at HS (per patient she wears at home) - 01/09 CXR: No acute disease in the chest - 01/08 CT Chest: compression deformity of vertebral body of T12, no suspicious consolidative or nodular opacities in the lungs. No evidence of pneumothorax. - 01/09 repeat CXR No acute findings Cards: Essential HTN Takotsubo cardiomyopathy, history Temp: [98 F (36.7 C)-99.8 F (37.7 C)] 98 F (36.7 C) Pulse (Heart Rate): [74-122] 94 Resp Rate: [15-32] 21 BP: (60-134)/(43-74) 122/74 O2 Sat (%): [86 %-100 %] 99 % - Goal SBP <140, MAP >65 - Hold Home antihypertensives: Losartan 25 mg daily, carvedilol 12.5 mg BID - PRN labetalol and hydralazine for SBP >140 - 01/09 TTE: EF 55-60% no valvular dysfunction - 01/08 troponin: 16 - 01/08 ECG: NSR Recent Labs 01/08/22 1912 CHOLESTEROL 91 TRIG 114 HDL 37* LDL 31 Renal/: No Current Issues - Fluid Balance: - Goal: euvolemia - 01/09 soliman removed then reinserted for urinary retention - Maintenance: 0.9NS w/ 20 KCl @ 75mL/hr (discontinue when able to take PO) - Daily Chem 10; electrolytes replaced per [facility] protocol Recent Labs 01/09/22 0158 01/09/22 2320 SODIUM 141 143 POTASSIUM 3.7 4.2 CHLORIDE 104 107 CO2 26 28 BUN 17 11 CREATSERUM 0.73 0.57 MAGNESIUM 1.5* 2.0 PHOSPHORUS 2.1* 2.8 ICA 4.34* 4.48* GI/Nutrition: Risk for Dysphagia No results for input(s): ALBUMIN, BILIDIRECT, BILITOTAL, ALKPHOS, ALT, AST, TP, AMYLASE, LIPASE in the last 72 hours. - DIET NPO WITHOUT meds - There is no height or weight on file to calculate BMI. - Bowel regimen: - Last Bowel Movement: (CHRO) - Senna, miralax - 01/10 BELT REPAIRER eval recommend NPO DHT placed TF initiated Endo: Risk for Stress-Induced Hyperglycemia Acute Hypoglycemia - Goal blood glucose 140-180 Recent Labs 01/09/22 0158 01/09/22 0247 01/09/22 1108 01/09/22 1737 01/09/22 2320 01/09/22 2322 GLUCOSE 85 < > 128* 123* 102* 91 HGBA1C 5.3 -- -- -- -- -- < > = values in this interval not displayed. - Insulin SSI: Q6H ID: Acute Leukocytosis 2/2 Acute Stress Recent Labs 01/08/22 1656 01/08/22 1912 01/09/22 0158 01/09/22 0227 01/09/22 2320 WBC -- < > 12.22* -- 12.90* LACT 1.4 -- -- 0.7 -- PROCALCITONI -- -- 0.10 -- -- < > = values in this interval not displayed. - Temp (24hrs), Av.7 F (37.1 C), Min:98 F (36.7 C), Max:99.8 F (37.7 C) - PRN Tylenol for T>100.4F - Most recent and positive cultures: Date Collected Source Result Date Finalized 01/09 BC NGTD 01/09 UA NG - Antiinfectives: Start Date Antiinfective Coverage Course Length Stop Date 01/09 Ancef Maame-op TBD 01/10 - 01/09 ballard cultured ON for fever Heme/Onc: Acute Blood Loss Anemia Thrombocytopenia Recent Labs 01/08/22 1912 01/09/22 0158 01/09/22 2320 WBC 9.08 12.22* 12.90* RBC 2.41* 3.28* 2.92* HGB 6.9* 9.1* 8.1* HCT 21.2* 27.5* 25.3* PLATELET 219 208 196 PT 15.0* 14.1 -- PTT 27.3 26.7 -- INR 1.2* 1.1 -- - Goal plt >100, INR <1.4, Hgb >7 - OR EBL: 250 mL - OR Blood products given: 1 units PRBCs, 2 pools plt - lovenox DVT ppx Musc: Acute Deconditioning - PT/OT consulted and following - Current Activity Order: AAT Social/Dispo: - Code status: Full Code - Primary Emergency Contact: ameena zhang - 01/08: Last updated Family. - 01/09 unable to reach family via phone - 01/08: Medications reconciled - Discharge planning per PCRM/SW. - 01/10 transfer to floor with neurosurgery ICU Checklist: [ ] CAM-ICU [ ] DVT ppx; [ ] SCDs; [ ] Lovenox, [ ] heparin - HOLD [X ] Stress ulcer prophylaxis: Pepcid (indication: mechanical ventilation) - Lines/Tubes: Laure: inserted 01/08, (indication:periop) remove 01/10 CVC: inserted 01/08, (indication:IV access) Remove 01/10 Soliman: inserted 01/09, (indication:periop intake/output management) Enteral access: inserted 01/08, OG [ ] gastric; [ ] post-pyloric Discussed with [facility] Attending, EMELY Stevens Service pager: [phone] Service [place] #: [phone] (Beds 0660-4648 and beds), [place] #: [phone] (Beds 1042- 1053 and [facility] beds) 01/10/22 10:47 AM * Veronica Velez MD - 01/10/2022 8:54 AM EDT I have seen and examined the patient with the resident/CONGRESSIONAL DISTRICT AIDE today. I have personally reviewed all theimaging and laboratory data and also reviewed the note. I agree with the assessment and plan with the following additions : BP 122/74 Pulse 100 Temp 98 F (36.7 C) (Oral) Resp 20 Wt 55.2 kg (121 lb 11.1 oz) SpO2 95% General: no signs of distress HEENT: no bruits, no neck stiffness CVS: regular rate and rhythm , no murmur. Lungs: clear to auscultation, no wheezes or crackles Abdomen: soft non tender non distended, +ve Bowel sounds. Extremities: no edema, + pulses Neuro:MS: Awake Language: FC CN: ? HH Motor: 5/5 all over. Decreased effort right side HCT: Post op changes Assessment and Plan:Luiza May is a 66 y.o. female with a past history of remote right-sided CVA, COPD on home O2, HTN, previous RLE DVT, ETOH-use, and Takotsubo cardiomyopathy. 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 Pulmonary: COPD on home oxygen 3. CVS: Hypertension. History of takotsubo cardiomyopathy. Keep <160. Resume home meds if needed 4. GI: Swallow evaluation and feed 5. Renal: Stable. DC IVF 6. ID: Postop antibiotics 7. Hem: Stable 8. Endo : SSI 9. Prophylaxis: DVT porph Tr out Veronica Velez MD [facility] Department of Neurology * Crys Brar MD - 01/10/2022 8:29 AM EDT NEUROSURGERY PROGRESS NOTE: 01/10/22 S: NAEON O: PE: Wakes to voice Ox2 PERRL EOMI FS FC x4, appears stronger on R At least antigravity headwrap removed, dressings cdi Drain with CSF Temp: [98 F (36.7 C)-99.8 F (37.7 C)] 98 F (36.7 C) Pulse (Heart Rate): [78-122] 79 Resp Rate: [15-32] 15 BP: (83-134)/(47-74) 83/47 O2 Sat (%): [94 %-100 %] 97 % Weight: [55.2 kg (121 lb 11.1 oz)] 55.2 kg (121 lb 11.1 oz) Ventilator/Non- Ventilator Mode: CPAP/PS Set Respiratory Rate/Release Rate: 16 PEEP (cm H2O): 6 Pressure Support (cmH2O): 10 O2 Sat (%): 97 % (01/10 700) O2 Device: nasal cannula (01/10 600) Flow (L/min): 3 (01/10 600) Oxygen Concentration (%): 40 (01/10 700) I/O last 3 completed shifts: In: 2297.5 [I.V.:1797.4; IV Piggyback:500.1] Out: 1050 [Urine:835; Other:215] ICP: No data recorded WBC/Hgb/Hct/Plts: 12.90/8.1/25.3/196 (01/10 2320) Na/K+/Phos/Mg/Ca: 143/4.2/2.8/2.0/-- (01/10 2320) Bun/Creat/Cl/CO2/Glucose: 11/0.57/107/28/91 (01/10 2320-01/09 2322) Imaging: postop CTH with expected findings A/P: Luiza May is a 66 y.o. female p/w SDH s/p R hemicraniectomy on 01/08/2022 Neuro: neuro checks, dc drain today, incision open to air Cards: SBP<160 Resp: per ICU, wean O2 as able ID: Ancef completed FEN/GI: DIET NPO WITHOUT meds PPX: SCDs, okay for Lovenox Dispo: pending PTOT Please page [phone]) with questions. Active Problems: SDH (subdural hematoma) Present on Admission: SDH (subdural hematoma) * Elin Boswell MD - 01/09/2022 2:48 PM EDT Images from the original note were not included. TRAUMA TERTIARY EXAM Patient Name: Luiza May 66 y.o. Admit Date: 01/08/2022 Trauma Activation Level: Trauma Consult Date of Evaluation: 01/09/2022 3:45 PM MECHANISM OF INJURY: Mechanism: Found down PHYSICAL EXAM: VS: BP 123/56 Pulse 103 Temp 99.8 F (37.7 C) (Oral) Resp (!) 28 Wt 55.2 kg (121 lb 11.1 oz) SpO2 99% O2 Sat (%): [97 %-100 %] 99 % O2 Device: nasal cannula Flow (L/min): [3] 3 Physical Exam: Physical Exam Constitutional: General: She is not in acute distress. Comments: Alert to self and situation HENT: Head: Nose: Nose normal. Comments: Craniotomy dressing in place, MIRANDA drain. Face non-tender. No bruising or lacerations to the face. Mouth/Throat: Mouth: Mucous membranes are moist. Pharynx: No oropharyngeal exudate or posterior oropharyngeal erythema. Eyes: General: No scleral icterus. Right eye: No discharge. Pupils: Pupils are equal, round, and reactive to light. Cardiovascular: Rate and Rhythm: Tachycardia present. Pulses: Normal pulses. Pulmonary: Effort: Pulmonary effort is normal. No respiratory distress. Chest: Chest wall: No tenderness. Abdominal: General: Abdomen is flat. There is no distension. Palpations: Abdomen is soft. Tenderness: There is no abdominal tenderness. There is no guarding. Musculoskeletal: General: No swelling, tenderness, deformity or signs of injury. Cervical back: No rigidity or tenderness. Right lower leg: No edema. Left lower leg: No edema. Comments: Ecchymosis of right foot lateral side. Ecchymosis to left elbow. Ecchymosis to left and right buttock area. Left greater than right. Skin: General: Skin is warm and dry. Capillary Refill: Capillary refill takes less than 2 seconds. Neurological: Comments: A&Ox2, patient moves bilateral upper and lower extremities. Following commands after prompting. No focal deficits identified. IMAGING: ECHOCARDIOGRAM Final Result XR CHEST PORTABLE Final Result Impression: 1. No acute disease in the chest. 2. The endotracheal tube tip remains in appropriate position, approximately 2.6 cm from the claude. ABDOMEN 1 VIEW PORTABLE Final Result IMPRESSION: Appropriate position of the orogastric tube in the stomach. HEAD WITHOUT CONTRAST Final Result IMPRESSION: 1. Postoperative changes of interval right craniectomy and right subdural hematoma evacuation with placement of an epidural drain. Residual subdural hemorrhage is present predominantly along the inferior frontal lobe and falx. Mass effect has significantly improved in comparison to prior study. 2. Previously noted area of hypoattenuation in the right occipital lobe appears less conspicuous and may again relate to a subacute infarct. Decreased conspicuity may be due to improved edema following decompression. Areas of nonspecific edema in the right cerebral hemisphere and more chronic appearing infarct in the left parietal lobe are similar to prior study. 3. Decreased mass effect upon the ventricular system. Left lateral ventricle stable to slightly smaller compared with the preoperative exam. I personally viewed and interpreted these images and I have reviewed and approved this report. ABDOMEN/PELVIS WITH CONTRAST VASCULAR TRAUMA Final Result IMPRESSION: 1. No convincing evidence of solid organ or hollow viscous injury within the abdomen or pelvis. 2. No free air, free fluid or loculated fluid collections in the peritoneal cavity 3. Multifocal cortical irregularity and scarring in both kidneys. 4. Postcholecystectomy status. Diffuse dilatation of the common bile duct and mild dilatation of the intrahepatic ducts likely secondary to prior cholecystectomy 5. No acute bony fractures in the visualized skeleton Hepatic trauma grade: N/A Spleen trauma grade: N/A Kidney trauma grade: N/A CHEST WITH CONTRAST VASCULAR TRAUMA Final Result IMPRESSION: 1. Compression deformity of vertebral body at T12. 2. Healing fractures of the anterolateral aspects of the left sixth through ninth ribs. 3. No suspicious consolidative or nodular opacities in the lungs. 4. No evidence of pneumothorax. 5. Please see the dedicated report for the corresponding same day abdominal CT examination. Findings communicated to Kailee Lyon MD on 01/08/2022 3:37 PM. FACIAL WITHOUT CONTRAST Final Result IMPRESSION: No evidence of facial bone fracture. SPINE LUMBAR WITHOUT CONTRAST Final Result IMPRESSION: No evidence of fracture or dislocation of the lumbosacral spine. SPINE THORACIC WITHOUT CONTRAST Final Result IMPRESSION: 1. No evidence of acute fracture or dislocation of the thoracic spine. 2. Mild chronic compression fracture of T12. 3. Mild thoracic spondylosis, as above. SPINE CERVICAL WITHOUT CONTRAST Final Result IMPRESSION: 1. No evidence of fracture or dislocation of the cervical spine. 2. Mild cervical spondylosis, as above. HEAD WITHOUT CONTRAST Final Result IMPRESSION: Acute right subdural hematoma with possible 1 cm of leftward midline shift. Mild subfalcine and uncal herniation. Asymmetric enlargement of the left temporal horn, raising concern for trapped ventricle. Prominent area of low-attenuation in the right occipital lobe, concerning for a late subacute to chronic infarct. Additional more chronic appearing infarct in the left parietal lobe. Findings of right holohemispheric subdural hematoma and leftward midline shift was discussed with Dr. Nelson Carmona on 01/08/2022 3:25 PM. [x] I have read and reviewed the above listed images LAB WORK: Recent Labs 01/08/22 1453 01/08/22 1453 01/08/22 1531 01/08/22 1656 01/08/22 1912 01/09/22 0147 01/09/22 0158 01/09/22 0227 01/09/22 0247 01/09/22 0627 01/09/22 1108 WBC 6.41 -- -- -- 9.08 -- 12.22* -- -- -- -- HGB 7.1* -- -- -- 6.9* -- 9.1* -- -- -- -- PLATELET 64* -- -- -- 219 -- 208 -- -- -- -- SODIUM 137 137 -- -- 139 141 -- 141 -- -- -- -- POTASSIUM 4.0 3.9 -- -- 4.3 3.8 -- 3.7 -- -- -- -- CHLORIDE 104 -- -- -- 103 -- 104 -- -- -- -- CO2 25 -- -- -- 26 -- 26 -- -- -- -- BUN 25 -- -- -- 20 -- 17 -- -- -- -- CREATSERUM 0.67 -- -- -- 0.60 -- 0.73 -- -- -- -- GFR >90 -- -- -- >90 -- 90 -- -- -- -- GLUCOSE 88 88 -- -- 128* 106* < > 85 -- < > 113* 128* HGBA1C -- -- -- -- -- -- 5.3 -- -- -- -- MAGNESIUM -- < > -- -- 1.6 -- 1.5* -- -- -- -- PHOSPHORUS -- < > -- -- 2.1* -- 2.1* -- -- -- -- CALCIUM -- -- -- -- 7.7* -- -- -- -- -- -- INR -- -- < > -- 1.2* -- 1.1 -- -- -- -- HSTROP 16 -- -- -- -- -- -- -- -- -- -- CPK 132 -- -- -- -- -- 126 -- -- -- -- LACT 1.3 -- -- 1.4 -- -- -- 0.7 -- -- -- < > = values in this interval not displayed. pH/PCO2/PO2/HCO3: 7.48/38/139/28 (01/09 227) Lab Results Component Value Date ETOHSERUM <10 01/08/2022 AMPMETUR Negative 01/09/2022 BENZOUR Presumptive Positive (A) 01/09/2022 [id number] Negative 01/09/2022 BUPREN Negative 01/09/2022 COCUR Negative 01/09/2022 METHADUR Negative 01/09/2022 CANNABINOIDS Negative 01/09/2022 FENTU Presumptive Positive (A) 01/09/2022 OPIATE Presumptive Positive (A) 01/09/2022 OXYCODONE Negative 01/09/2022 Lab Results Component Value Date PH 7.48 (H) 01/09/2022 WBCURINE 6-9 (A) 01/09/2022 No results found for: CTUR, GCUR, UAREFLXCULTNo results found for: [id number], [id number] [x] I have read and reviewed the above listed lab studies. MEDICATIONS: Infusions: sodium chloride 0.9% w/potassium Cl 75 mL/hr at 01/09/22 1500 Scheduled Medications: ceFAZolin (ANCEF) IV intermittent 2 g Intravenous Q8HNS insulin regular Subcutaneous Q6H levETIRAcetam 500 mg Oral Q12H Or levETIRAcetam (KEPPRA) injection/IVPB 500 mg Intravenous Q12H senna 8.6 mg Oral Daily Or senna 8.6 mg Per NG tube Daily PRN Medications: acetaminophen OR acetaminophen, Calcium Gluconate OR calcium gluconate IVPB, insulin regular AND BLOOD GLUCOSE (POC DEVICE) AND BLOOD GLUCOSE (POC DEVICE) UDPRN AND COMMUNICATION ORDER FOR NURSING CARE: For Blood Glucose LESS THAN 80 mg/dl AND dextrose AND glucose AND NOTIFY PHYSICIAN, Blood Glucose LESS THAN 80 mg/dl, hydrALAZINE OR hydrALAZINE, HYDROmorphone OR HYDROmorphone, hydrOXYzine hcl, labetalol OR labetalol, Magnesium Sulfate IVPB, ondansetron 4mg/2ml OR ondansetron, oxyCODONE OR oxyCODONE, polyethylene glycol OR polyethylene glycol, potassium chloride OR potassium chloride OR Potassium Bicarb- Citric Acid OR potassium chloride, sodium chloride 0.9%, Sodium Phosphate IVPB OR Sodium Phosphate IVPB CONSULTANTS: IP CONSULT TO SURGERY - TRAUMA IP CONSULT TO SURGERY - NEURO IP CONSULT TO SURGERY - ORTHOPAEDICS IP CONSULT TO NEUROCRITICAL CARE IP CONSULT TO SOCIAL WORK IP CONSULT TO SOCIAL WORK IP CONSULT TO OCCUPATIONAL THERAPY IP CONSULT TO PHYSICAL THERAPY IP CONSULT TO SPEECH THERAPY [x] I have read and reviewed the senior wind energy consultant recommendations TRAUMA CATALOGUE OF INJURIES & INCIDENTAL FINDINGS: 1. Right subdural hematoma with possible 1 cm of leftward midline shift Incidental Findings: [x] I have read and reviewed the images for incidental findings 1. Chronic compression fracture of T12 Patient notified of incidental findings on 01/09/2022 and need to follow up with primary care provider. PLAN: Luiza May is a 66 y.o. s/p Found down with CTH demonstrating R acute subdural hematoma with 1cm left midline shift and mild subfalcine and uncal herniation. Now s/p right sided decompressive craniectomy and placement of epidural drain on 01/08/22. - No further imaging recommended at this time. Patient endorses diffuse body pain but no localized findings. Goals of Care and Code Status: Code Status on File: Full Code Goals of care discussed with patient/family: Patient unable to participate in this conversation. She is following commands after several prompts but does not participate in conversation during assessment. Unable to reach family. Phone listed was disconnected. Code status discussed or confirmed with patient/family: See above. Discharge Planning: Follow up: No Follow Up Needed With Trauma or ACS Planned Discharge To: Per Neurosurgery Elin Boswell MD 01/09/2022 Associated attestation - Dionicio Mckinney MD - 01/11/2022 10:00 AM EDT I saw and independently examined the patient on 01/09/2022. I agree with the history, examination, and medical decision making as outlined by the resident note above. No additional findings noted. Dionicio Mckinney MD button sawyer * Radha Luke RN - 01/09/2022 1:09 PM EDT attempted to complete initial assessment, patient sleeping, difficult to rouse. will continue to follow and attempt to complete initial assessment when patient is better able to participate in interview. * Rachel Mccracken OT - 01/09/2022 8:44 AM EDT Occupational Therapy Attempt Note 01/09/2022 OT Therapy Completed: Attempted Attempted Reason: Patient is not medically optimized to tolerate therapy program (no bone flap and no order for helmet. Also needs drains removed before fitting. Canceling consult. Please re-consult when appropriate) Rachel Mccracken OT Time In: 44 Time Out: 0844 Total Visit Time: 0 minutes Total Treatment Time (skilled, billable minutes): 0 minutes * Yanet Flaherty PT - 01/09/2022 8:11 AM EDT Physical Therapy Attempt Note 01/09/2022 PT Therapy Completed: Attempted Attempted Reason: Patient is not medically optimized to tolerate therapy program (Pt with no bone flap, will need helmet order when dressings decrease in size and drain removed. Pt also awaiting spine recs for compression fx. 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 Pt intubated, SLPto sign off services. Please re-consult when/if appropriate. GIRISH Solis Time In: 0800 Time Out: 0802 Total Visit Time: 2 minutes Total Treatment Time (skilled, billable minutes): 0 minutes * Francesca Webster DO - 01/09/2022 5:56 AM EDT Orthopaedic Spine Surgery Progress Note: Luiza May is a 66 y.o. female who hx of alcohol abuse, anxiety, COPD, CHF, HTN, HLD, CVA and TIA, DVT, who presents initially as a hemorrhagic stroke alert but was found to have been a fall at home with unknown time down. Found to have a subdural hematoma and was taken for craniotomy with NSGY. Last 24 Hours Patient opens eyes but does not respond to commands Vitals Vitals: 01/09/22 0540 BP: Pulse: 97 Resp: 24 Temp: 100.04 F (37.8 C) Physical Exam GEN: resting in bed, NAD Intuabted Spine Exam Moves all extremities spontaneously Laboratory Studies Lab Results Component Value Date WBC 12.22 (H) 01/09/2022 HGB 9.1 (L) 01/09/2022 HCT 27.5 (L) 01/09/2022 PLATELET 208 01/09/2022 MCV 83.8 01/09/2022 Lab Results Component Value Date SODIUM 141 01/09/2022 POTASSIUM 3.7 01/09/2022 CHLORIDE 104 01/09/2022 CO2 26 01/09/2022 BUN 17 01/09/2022 CREATSERUM 0.73 01/09/2022 GLUCOSE 95 01/09/2022 Lab Results Component Value Date INR 1.1 01/09/2022 INR 1.2 (H) 01/08/2022 INR 1.3 (H) 01/08/2022 PT 14.1 01/09/2022 PT 15.0 (H) 01/08/2022 PT 15.5 (H) 01/08/2022 Imaging/Cultures/Drains New Imaging: CT: chronic, mild compression fracture of T12 Assessment Luiza May is a 66 y.o. female with chronic T12 compression fx Plan No emergent operative orthopaedic intervention indicated at this time Patient will need neuro exam when able Recommend standing XR of T/L spine when able Francesca Webster DO Orthopedic Spine Fellow * ROSCOE Quinn - 01/08/2022 3:26 PM EDT 01/08/22 1526 Social Work Screenings Screening patient has qualified for Trauma Patient appropriate for screening? No - intubated ROSCOE Hurley-Stephanie, [facility] Occ Therapist, Emergency Dept. [phone] Available via Secure Chat documented in this encounterOS[facility] Discharge instructions* Discharge Instructions* Rakesh Ta MD - 01/27/2022 10:47 AM EDT Pain: You may have some surgery pain for the first week after surgery. A limited amount of pain medicine will be sent home with you after surgery. Do not drive after taking prescription pain medicine. Narcotic pain medicine may cause constipation. Be sure to take stool softeners or laxatives while you are on narcotic pain medicine. Remember to eat when taking pain medicines in order to avoid nausea. You may take any over the counter medicine after you are out of pain medicine Suggestion: Tylenol Extra-strength/Acetaminophen, 2 tablets every 4-6 hours as needed. DO NOT TAKE MORE THAN 4000MG PER DAY. You may use ice or heat for comfort. You should call the office if your pain increases. Constipation: Stay active. Walk as much as you are able. Do not stay in bed. Add more fruits and fiber to your diet. Drink at least 6-8 cups of fluid each day If you need a laxative or stool softener consult your local pharmacist for questions. Medications: Resume your usual medicine after you are home from surgery If you are prescribed new medicines, take them as prescribed Blood thinners (coumadin, Xarelto, Eliquis, aspirin, etc) can be resumed once approved by your surgeon. Activity: Advance your activity as you can tolerate. Nothing excessive or strenuous. You may do light work around the house. Do not get your heart rate up or sweat. You may walk all you want. You may go up and down the steps. Use the railing for support Do not drive or return to work until you are instructed It is normal for your energy level and sleep patterns to change after surgery. Get extra sleep at night and take naps during the day to help you feel less tired. You can sleep in any position that is comfortable. Use extra pillows if you want. Take rest periods during the day. A full recovery from surgery may take several weeks. Return to Driving If you drive, We will discuss driving at your follow up appointment. You are not to drive while taking narcotic pain medicine. You are not to drive if you have had a seizure. Please call the office if you have any questions. Return to School/Work If you work, We will discuss returning to work and other activities at your follow-up appointment. Please call the office if you have any questions. Diet: You may resume your usual diet once you return home. It is important to get enough fluid to stay hydrated to prevent dizziness and falling. If you are diabetic, it is important to maintain tight blood sugar control to promote wound healing. When to call your Surgeon's Office: If you have one or more of these signs call your surgeon s office. The phone number will be under the follow up section of your discharge instructions: Temperature of 100.4 degrees Fahrenheit or greater (38 degrees Celsius) Drainage from your incision Skin around the incision becomes red, warm, swollen or painful Feeling any fluid dripping from your nose or your ears When to go to the Emergency Department: If you have any of these signs go to the nearest emergency department or call 911 right away: Any change in alertness; feel more sleepy than usual, restless and/or confused Breathing problems Chest pain (including chest pressure or tightness) Vision problems or a change in vision New problems with weakness, numbness, balance, walking or inability to move an arm or leg. Problemsmay be only on one side of the body. Change in face appearance, such as drooping on one side of the face Not able to speak or problems when talking Trouble swallowing Seizures Nausea and vomiting that continues or gets worse Severe headache or headache with a stiff neck Sutures/Arturo: If Sutures/arturo are used to close the outer layer of skin they should remain dry and in place for about 10 - 14 days after surgery unless otherwise directed. Call the office at [phone] to schedule a time to come in, Wednesday - Wednesday 9 - 4. Your primary care office may remove them if that is convenient and they are willing. Incision/Wound: Leave your incision open to air. Keep the incision clean and dry. Cover the incision with a dressing if there is any drainage. You may wear a hat or scarf to cover your head You may shower. You may wash your incision gently with a soft cloth with soap and water. Pat it dry. Use dial or non bacterial soap to clean incision. Avoid perfumed soaps or lotions on the incision as these could irritate or cause infection. Do not soak your incision under the water until it is well healed; about 3 - 4 weeks. You should call the office for any redness, swelling or drainage or fever > 101.6 Follow up: You will be scheduled for a follow up appointment with Dr Jurado about 4 to 5 weeks after surgery. Feel free to call the office if you have any questions before your appointment. documented in this encounterWay[facility]22 Reason for referral (narrative)* (Routine) Specialty Diagnoses / Procedures Referred By Aubree lubin Referred To Contact Rakesh Ta MD [address] [place] [phone] Referral ID Status Reason Start Date Expiration Date Visits Re quested Visits Authorized * (Routine) Specialty Diagnoses / Procedures Referred By Aubree lubin Referred To Contact Lowell Bryant MD [address] [place] [phone] Referral ID Status Reason Start Date Expiration Date Visits Re quested Visits Authorized * Speech Therapy (Routine) - New Request Specialty Diagnoses / Procedures Referred By Aubree lubin Referred To Contact Severo Jurado MD [address] [place] [id number] Referral ID Status Reason Start Date Expiration Date V isits Requested Visits Authorized [id number] New Request 01/19/2022 02/13/2023 1 1 * (Routine) Specialty Diagnoses / Procedures Referred By Contac t Referred To Contact Joy Rawls Jr., MD [address] [place] [phone] Referral ID Status Reason Start Date Expiration Date Visits Re quested Visits Authorized * (Routine) Specialty Diagnoses / Procedures Referred By Contac t Referred To Contact [facility] [address] [place] [phone] Referral ID Status Reason Start Date Expiration Date Visits Re quested Visits Authorized * (Routine) Specialty Diagnoses / Procedures Referred By Contac t Referred To Contact Dionicio Pacheco APRN-CNP [address] [place] [address] Referral ID Status Reason Start Date Expiration Date Visits Re quested Visits Authorized * (Routine) Specialty Diagnoses / Procedures Referred By Contac t Referred To Contact Deborah Amador APRN-CNP [address] [phone] Referral ID Status Reason Start Date Expiration Date Visits Re quested Visits Authorized * (Routine) Specialty Diagnoses / Procedures Referred By Contac t Referred To Contact Deborah Amador APRN-CNP [address] [phone] Referral ID Status Reason Start Date Expiration Date Visits Re quested Visits Authorized * (Routine) Specialty Diagnoses / Procedures Referred By Contac t Referred To Contact Deborah Amador APRN-CNP [address] [phone] Referral ID Status Reason Start Date Expiration Date Visits Re quested Visits Authorized * (Routine) Specialty Diagnoses / Procedures Referred By Contac t Referred To Contact Deborah Amador APRN-CNP [address] [phone] Referral ID Status Reason Start Date Expiration Date Visits Re quested Visits Authorized * (Routine) - Pending Review Specialty Diagnoses / Procedures Referred By Contac t Referred To Contact Procedures DVT/VTE RISK ASSESSMENT Deborah Amador APRN-CNP [address] [phone] Referral ID Status Reason Start Date Expiration Date V isits Requested Visits Authorized [id number] Pending Review 01/09/2022 02/03/2023 1 1 * (Routine) - Pending Review Specialty Diagnoses / Procedures Referred By Contac t Referred To Contact Procedures NO PHARMACOLOGICAL DVT PROPHYLAXIS Severo Jurado MD [address] [place] [address] Referral ID Status Reason Start Date Expiration Date V isits Requested Visits Authorized [id number] Pending Review 01/09/2022 02/03/2023 1 1 * (Routine) - Pending Review Specialty Diagnoses / Procedures Referred By Contac t Referred To Contact Procedures DVT/VTE RISK ASSESSMENT Severo Jurado MD [address] [place] [address] Referral ID Status Reason Start Date Expiration Date V isits Requested Visits Authorized [id number] Pending Review 01/09/2022 02/03/2023 1 1 * Radiology (Emergency) - Pending Review Specialty Diagnoses / Procedures Referred By Contac t Referred To Contact Procedures ECG Jenni Zavala MD [address] [place] [phone] Referral ID Status Reason Start Date Expiration Date V isits Requested Visits Authorized [id number] Pending Review 01/08/2022 02/02/2023 1 1 * (Routine) Specialty Diagnoses / Procedures Referred By Contac t Referred To Contact Kailee Lyon MD [address] [place] [address] Referral ID Status Reason Start Date Expiration Date Visits Re quested Visits Authorized [facility]07-19-2022 Procedure note* GIRISH Alcala - 01/20/2022 2:20 PM EDTAssociated Order(s): SPEECH MODIFIED BARIUM SWALLOW Acute Care Speech Language Pathology Modified Barium Swallow Evaluation Note Diet Recommendations: Recommended Method of Nutrition: PO Recommended Diet Grade: regular Recommended Liquid Consistency: liquid- thin (IDDSI 0) Recommended Medication Administration (as appropriate per MD): Per patient preference Swallow Strategies: Liquid wash Type of Cues/Supervision: (assist with feeding as needed) Assistance: nurse/aide, family Discharge Recommendations: Based on the below outcome measures/assessment score(s), and BELT REPAIRER clinical judgment, discharge destination recommendation is: Deferred to PT and/or OT discharge recommendations related to mobility and/or ADLs. At discharge, ongoing speech therapy services are recommended to target: cognitive-linguistic deficits. Acute BELT REPAIRER Outcomes Tracking Communicate basic wants and needs?: yes Demo insight/appreciation of deficits?: unable to determine Complete basic problem solving?: unable to determine Current therapy frequency recommendation in acute care: Speech/Lang/Cog Therapy Frequency: 3 times a week Swallow Therapy Frequency: 3 times a week Date of Procedure: 01/20/2022 General Patient Information Name: Luiza May Gender: female Date of : 1955 Diagnosis and Associated Codes: ICD-10-CM 1. SDH (subdural hematoma) S06.5X9A No past medical history on file. Past Surgical History: Procedure Laterality Date EVACUATION BRAIN HEMATOMA BY CRANIECTOMY/CRANIOTOMY SUPRATENTORIAL Right 01/08/2022 Laterality: Right; Surgeon: Severo Jurado MD; Location: [facility] MAIN OR Patient History Comments: Per chart: Luiza May is a 66 y.o. female who presents to the hospital on 01/08. Patient found on floor 01/07 altered and not acting like herself. Patient taken to OSH per EMS. CTH demonstrated right-sided SDH with 1.5 cm MLS and mass effect. She takes baby ASA at home. She was intubated for airway protection and transported to [facility] for NSG intervention. Upon arrival to [facility], a full trauma workup was completed identifying a chronic compression fracture of T12. CTH demonstrated an acute right SDH with 1 cm leftward MLS and mild subfalacine and uncal herniation. The patient was taken to OR per NSG for a right-sided decompressive craniectomy. Patient's history includes remote right-sided CVA, COPD on home O2, HTN, previous RLE DVT, ETOH-use, and Takotsubo cardiomyopathy. CT head 01/08/22: IMPRESSION: 1. Postoperative changes of interval right craniectomy and right subdural hematoma evacuation with placement of an epidural drain. Residual subdural hemorrhage is present predominantly along the inferior frontal lobe and falx. Mass effect has significantly improved in comparison to prior study. 2. Previously noted area of hypoattenuation in the right occipital lobe appears less conspicuous and may again relate to a subacute infarct. Decreased conspicuity may be due to improved edema following decompression. Areas of nonspecific edema in the right cerebral hemisphere and more chronic appearing infarct in the left parietal lobe are similar to prior study. 3. Decreased mass effect upon the ventricular system. Left lateral ventricle stable to slightly smaller compared with the preoperative exam. Prior Study: No prior instrumental swallow studies per EMR. Subjective: Awake, alert, cooperative, pleasant. Arrived wearing helmet. Pain: General Pain Documentation (Adult, OB, Peds) Presence of Pain: complains of pain/discomfort Comfort/Acceptable General Pain Level/Goal: 6 DVPRS (Defense and Veterans Pain Rating Scale) DVPRS: Rest: 5- moderate pain DVPRS: Activity: 5- moderate pain General Pain Descriptors Pain Frequency: intermittent, occasional Pain Quality: other (see comments) (unable to describe) Factors That Aggravate Pain: unknown Factors That Relieve Pain: medications, opiod Respiratory Status: O2 Sat (%): 94 % (01/20 115) O2 Device: room air (01/20 115) Assessment: Consistencies Assessed: This study was conducted in the lateral view. Patient was presented with the following barium consistencies: Varibar Thin Barium: teaspoon and straw Varibar Pudding Barium: teaspoon x2 Regular contrasted with Varibar Paste Barium: estefany cracker CRANIAL NERVE EXAMINATION: See clinical swallow evaluation for results Oral phase: Oral Phase Lip Closure: escape from interlabial space or lateral junction, no extension beyond von border Tongue Control During Bolus Hold: escape to lateral buccal cavity/floor of mouth Bolus Preparation/Mastication: timely and efficent chewing and mashing Bolus Transport/Lingual Motion: slowed tongue motion Oral Residue: trace residue lining oral structures Location of Oral Residue: tongue Initiation of Pharyngeal Swallow: bolus head in valleculae Pharyngeal Phase: Pharyngeal Phase Soft Palate Elevation: no bolus between soft palate and posterior pharyngeal wall Laryngeal Elevation: complete superior movement of thyroid cartilage with approximation of arytenoids to epiglottic petiole Anterior Hyoid Excursion: complete anterior movement Epiglottic Movement: complete inversion Laryngeal Vestibule Closure-Height of Swallow: complete Pharyngeal Stripping Wave: present - complete Pharyngeal Contraction in A/P View: (N/A) Pharyngoesophageal Segment Opening: complete distention and complete duration, no obstruction of flow Tongue Base Retraction: narrow column of contrast between tongue base and posterior pharyngeal wall Pharyngeal Residue: residue collection on pharyngeal structures Location of Pharyngeal Residue: valleculae Esophageal Phase: Esophageal Phase Esophageal Clearance In The Upright Position: (N/A) Airway Events: Airway Events: Penetration / Aspiration Scale (PAS) Thin: 1 - Material does not enter the airway, 2 - Material enters the airway, remains above the vocal folds and is ejected from the airway Dysphagia- pureed (IDDSI 4): 1 - Material does not enter the airway Regular Solid: 1 - Material does not enter the airway Strategy Trialed: Effectiveness: Liquid wash Effective to reduce residue Impressions: Luiza May presents with functional oropharyngeal swallow. Pt with timely/efficient oral preparation and clearance with only trace oral residue. Noted x1 occurrence of delayed oral preparation with puree; however, this was impacted from discomfort with DHT; pt otherwise with appropriate attention to PO trials. Pt with x1 episode of trace transient penetration with thin liquids (this is considered a normal variant of swallowing.) Hyolaryngeal elevation and epiglottic inversion adequate for airway protection with no aspiration observed. Reduced tongue base retraction resulted in mild-moderate vallecular residue; reduced with liquid wash. As a result of the above, pt appropriate to continue regular diet with thin liquids with use of liquid wash prn. Assist with feeding as needed. No additional skilled BELT REPAIRER services indicated for dysphagia. Plan for next session: N/A RECOMMENDATIONS: Swallow Recommendations Recommended Method of Nutrition: PO Recommended Diet Grade: regular Recommended Liquid Consistency: liquid- thin (IDDSI 0) Recommended Medication Administration (as appropriate per MD): Per patient preference Swallow Strategies: Liquid wash Type of Cues/Supervision: (assist with feeding as needed) Assistance: nurse/aide, family Assessment Criteria For Skilled Therapeutic Interventions Met: no problems identified which require skilled intervention Clinical Impression Frequency: No therapy recommended Acute BELT REPAIRER Goals Notes from 01/20/2022 3:02 AM through 01/20/2022 3:02 PM Goal 1: Patient will demonstrate understanding regarding Speech-Language Pathology role and plan ofcare and evaluation results/recommendations to improve awareness of condition/BELT REPAIRER role by the time of discharge. Results and recommendations described above reviewed with pt. Pt verbalized understanding. Goal met. Time In: 1420 Time Out: 1440 Total Visit Time: 20 minutes Total Treatment Time (skilled, billable minutes): 15 minutes I used gloves, facemask and protective eye shield in today's patient interaction. I was assisted by no one during this visit. Therapist: PAU Alcala, CCC-BELT REPAIRER, [place] License # [id number] Pager #: [phone] Upon discontinuation of Acute Care Speech Therapy Services or patient discharge from the hospital this note represents the current Speech Therapy Discharge [facility] note* Juana Brown, DO - 01/15/2022 12:53 PM EDTAssociated Order(s): IP CONSULT TO PSYCHIATRY PSYCHIATRY CONSULTATION 01/15/2022 Luiza May : 1955 REQUESTING PROVIDER Severo Jurado MD REASON FOR CONSULTATION Suicidal ideation HISTORY OF PRESENT ILLNESS Luiza May is a 66 y.o. female with hx of alcohol abuse, anxiety, COPD, CHF, HTN, HLD, CVA, TIA, DVT who presented as a hemorrhagic stroke alert who fell at home. Found to have a subdural hematoma and was taken for craniotomy with NSGY. Psychiatry was consulted for suicidal ideation. On exam today, the pt was not able to fully engage in interview. She was oriented to person and wasable to tell the interview team that she is in a medical building. She was unable to articulate why she was in the hospital. It was difficult to understand the patient due to her low volume and inability to move her mouth to speak. She was able to clearly state that she denies SI/HI. She lives with her boyfriend. Her attention waxed and waned during the interview. Luiza May's review of systems today is positive for problems with confusion, disorientation, delirium. Further ROS limited by patient's altered mental status. PAST PSYCHIATRIC HISTORY Has history of alcohol use and anxiety. Has been on Cymbalta 60 q daily, Lexapro 10mg q daily to treat anxiety. Has also been on ambien 10 mg at bedtime Further past psychiatric history could not be obtained due to altered mental status. PAST MEDICAL & SURGICAL HISTORY No past medical history on file. Past Surgical History: Procedure Laterality Date EVACUATION BRAIN HEMATOMA BY CRANIECTOMY/CRANIOTOMY SUPRATENTORIAL Right 01/08/2022 Laterality: Right; Surgeon: Severo Jurado MD; [facility] PSYCHIATRIC HISTORY Unable to obtain information d/t patient's delirious state. SOCIAL HISTORY Pt reports living with boyfriend. Unable to obtain more information due to delirium SUBSTANCE USE HISTORY According to the patient chart, she has no history on file for tobacco use. She has no history on file for drug use. Pt has a history of alcohol use per chart review. ALLERGIES She is allergic to tetanus immune globulin. MEDICATIONS Current Scheduled Medications: albuterol inhaler 2 puff, 2 puff, 4x daily oytyasmgqu-seuvrbjeslypiu-Tevbabzliq (BREZTRI) 160-9-4.8 MCG/ACT inhaler 1 puff, 1 puff, BID DULoxetine (CYMBALTA) capsule DR 60 mg, 60 mg, Daily Enoxaparin Sodium (LOVENOX) injection 40 mg, 40 mg, Q24H escitalopram (LEXAPRO) tablet 10 mg, 10 mg, Daily levETIRAcetam (KEPPRA) tablet 500 mg, 500 mg, Q12H Or levETIRAcetam (KEPPRA) injection 500 mg, 500 mg, Q12H senna (SENOKOT) tablet 8.6 mg, 8.6 mg, Daily Or senna (SENOKOT) tablet 8.6 mg, 8.6 mg, Daily sodium chloride 0.9% IV solution 0-250 mL, 0-250 mL, See admin instructions Current PRN Medications: acetaminophen, 650 mg, Q4H PRN Or acetaminophen, 650 mg, Q4H PRN bisacodyl, 10 mg, Daily PRN dextrose, 7.5-25 g, As directed PRN And glucose, 1-2 Tube, As directed PRN hydrALAZINE, 10 mg, Q1H PRN Or hydrALAZINE, 20 mg, Q1H PRN HYDROmorphone, 0.5 mg, Q3H PRN Or HYDROmorphone, 1 mg, Q3H PRN hydrOXYzine hcl, 25 mg, TID PRN labetalol, 10 mg, Q1H PRN Or labetalol, 20 mg, Q1H PRN ondansetron, 4 mg, Q6H PRN Or ondansetron 4mg/2ml, 4 mg, Q6H PRN oxyCODONE, 5 mg, Q4H PRN Or oxyCODONE, 5 mg, Q4H PRN polyethylene glycol, 17 g, Daily PRN Or polyethylene glycol, 17 g, Daily PRN RESULTS/DATA REVIEW Labs and imaging have been reviewed. Recent Results (from the past 24 hour(s)) CHEM 7 (LYTES,BUN,CREA,GLUC) Collection Time: 01/15/22 12:40 AM Result Value Ref Range Sodium 143 135 - 145 mmol/L Potassium 4.1 3.5 - 5.0 mmol/L Chloride 102 98 - 108 mmol/L CO2 35 (H) 21 - 31 mmol/L Glucose 130 (H) 70 - 99 mg/dL BUN 23 7 - 25 mg/dL Creatinine 0.59 0.50 - 1.20 mg/dL Bun/Crea Ratio 39 Osmolality (Calculated) 304 278 - 305 mOsm/kg Anion Gap 10 7 - 17 mmol/L eGFR, CKD-EPI, Female >90 >=60 mL/min/1.73m2 CBC,PLATELETS Collection Time: 01/15/22 12:40 AM Result Value Ref Range WBC Count 10.82 3.99 - 11.19 K/uL RBC Count 2.52 (L) 3.91 - 5.04 M/uL Hemoglobin 7.0 (L) 11.4 - 15.2 g/dL Hematocrit 22.9 (L) 34.9 - 44.3 % Mean Cell Volume 90.9 79.6 - 97.7 fL Mean Cell Hgb 27.8 25.9 - 33.9 pg Mean Cell Hgb Conc 30.6 (L) 31.4 - 35.9 g/dL RBC Distribution 15.6 (H) 10.8 - 14.9 % Platelet Count 245 150 - 393 K/uL Mean Platelet Volume 10.2 8.5 - 12.2 fL MAGNESIUM Collection Time: 01/15/22 12:40 AM Result Value Ref Range Magnesium 1.9 1.6 - 2.6 mg/dL PHOSPHATE, INORGANIC Collection Time: 01/15/22 12:40 AM Result Value Ref Range Phosphorous 3.3 2.2 - 4.6 mg/dL IONIZED CALCIUM, WHOLE BLOOD Collection Time: 01/15/22 12:40 AM Result Value Ref Range ICA 4.64 4.60 - 5.30 mg/dL PREPARE TO TRANSFUSE RED BLOOD CELLS Collection Time: 01/15/22 7:55 AM Result Value Ref Range BLOOD COMPONENT TYPE Red Cells, Leukoreduced UNIT NUMBER [id number] UNIT STATUS issued PRODUCT CODE P9436M80 Product ABO/RH(D) NUMBER 6200 EXPIRATION DATE [id number] ABO/RH(D) TYPE APOS Product ABO/RH(D) APOS TYPE AND SCREEN Collection Time: 01/15/22 7:55 AM Result Value Ref Range ABO/RH(D) TYPE A POS ANTIBODY SCREEN NEG EK01/08/22 Normal sinus rhythm Vent rate 82 BPM QTc 469 Imaging/Studies: XR ABDOMEN 1 VIEW Final Result IMPRESSION: Postpyloric enteric tube position. CHEST PORTABLE Final Result IMPRESSION: No acute cardiopulmonary disease CARDIOGRAM Final Result XR CHEST PORTABLE Final Result Impression: 1. No acute disease in the chest. 2. The endotracheal tube tip remains in appropriate position, approximately 2.6 cm from the claude. ABDOMEN 1 VIEW PORTABLE Final Result IMPRESSION: Appropriate position of the orogastric tube in the stomach. HEAD WITHOUT CONTRAST Final Result IMPRESSION: 1. Postoperative changes of interval right craniectomy and right subdural hematoma evacuation with placement of an epidural drain. Residual subdural hemorrhage is present predominantly along the inferior frontal lobe and falx. Mass effect has significantly improved in comparison to prior study. 2. Previously noted area of hypoattenuation in the right occipital lobe appears less conspicuous and may again relate to a subacute infarct. Decreased conspicuity may be due to improved edema following decompression. Areas of nonspecific edema in the right cerebral hemisphere and more chronic appearing infarct in the left parietal lobe are similar to prior study. 3. Decreased mass effect upon the ventricular system. Left lateral ventricle stable to slightly smaller compared with the preoperative exam. I personally viewed and interpreted these images and I have reviewed and approved this report. ABDOMEN/PELVIS WITH CONTRAST VASCULAR TRAUMA Final Result IMPRESSION: 1. No convincing evidence of solid organ or hollow viscous injury within the abdomen or pelvis. 2. No free air, free fluid or loculated fluid collections in the peritoneal cavity 3. Multifocal cortical irregularity and scarring in both kidneys. 4. Postcholecystectomy status. Diffuse dilatation of the common bile duct and mild dilatation of the intrahepatic ducts likely secondary to prior cholecystectomy 5. No acute bony fractures in the visualized skeleton Hepatic trauma grade: N/A Spleen trauma grade: N/A Kidney trauma grade: N/A CHEST WITH CONTRAST VASCULAR TRAUMA Final Result IMPRESSION: 1. Compression deformity of vertebral body at T12. 2. Healing fractures of the anterolateral aspects of the left sixth through ninth ribs. 3. No suspicious consolidative or nodular opacities in the lungs. 4. No evidence of pneumothorax. 5. Please see the dedicated report for the corresponding same day abdominal CT examination. Findings communicated to Kailee Lyon MD on 01/08/2022 3:37 PM. FACIAL WITHOUT CONTRAST Final Result IMPRESSION: No evidence of facial bone fracture. SPINE LUMBAR WITHOUT CONTRAST Final Result IMPRESSION: No evidence of fracture or dislocation of the lumbosacral spine. SPINE THORACIC WITHOUT CONTRAST Final Result IMPRESSION: 1. No evidence of acute fracture or dislocation of the thoracic spine. 2. Mild chronic compression fracture of T12. 3. Mild thoracic spondylosis, as above. SPINE CERVICAL WITHOUT CONTRAST Final Result IMPRESSION: 1. No evidence of fracture or dislocation of the cervical spine. 2. Mild cervical spondylosis, as above. HEAD WITHOUT CONTRAST Final Result IMPRESSION: Acute right subdural hematoma with possible 1 cm of leftward midline shift. Mild subfalcine and uncal herniation. Asymmetric enlargement of the left temporal horn, raising concern for trapped ventricle. Prominent area of low-attenuation in the right occipital lobe, concerning for a late subacute to chronic infarct. Additional more chronic appearing infarct in the left parietal lobe. Findings of right holohemispheric subdural hematoma and leftward midline shift was discussed with Dr. Nelson Carmnoa on 01/08/2022 3:25 PM. [facility] DUPLEX VENOUS EXTREMITY UPPER RIGHT (Results Pending) MENTAL STATUS EXAMINATION Appearance: ill-appearing 66 year old white female with a sunken head d/t removal of skull Attention: unable to attend to interview due to low attention, minimally responsive Orientation: person Interview Behavior: sedated, confused Attire: hospital gown Grooming: fair Eye Contact: no eye contact during interview, kept closed Mood: did not provide answer Affect: sedated, confused, disoriented Motor Activity: No tremors, muscle weakness, muscle rigidity/stiffness/abnormal tone, clonus, abnormal involuntary muscle movements or seizure activity were noted. Speech: Minimally responsive, low volume, paucity, apraxia of speech d/t medical condition Thought Process/Associations: difficult to assess, linear at times as she does answer some questions appropriately; slowed processing Suicidal Ideation: denied by patient Homicidal Ideation:denied by patient Delusions: none appreciated Hallucination: none appreciated Memory: not formerly assessed Insight/Judgment: poor insight and unknown judgement Impulse Control: poor d/t delirium Fund of Knowledge: unable to formally assess due to delirium Language/Vocabulary: appropriate when responding to questions Cognition: impaired due to delirium, specifically in the domain of attention Vital Signs: Blood pressure 97/47, pulse 102, temperature 98.3 F (36.8 C), temperature source Axillary, resp. rate 14, height 1.6 m (5' 3 ), weight 67.4 kg (148 lb 11.2 oz), SpO2 96 %. IMPRESSION Luiza May is a 66 y.o. female with hx of alcohol abuse, anxiety, COPD, CHF, HTN, HLD, CVA, TIA, DVT who presented as a hemorrhagic stroke alert who fell at home. Found to have a subdural hematoma and was taken for craniotomy with NSGY. Psychiatry was consulted for suicidal ideation. Patient was clearly delirious on exam given her disorientation and waxing/waning attention throughout the interview and per chart review. It is likely the patient stated her SI during an episode of delirium. Given her lack of psychiatric history for depression and denial of current SI we will recommend low suicide risk precautions. However, given her current delirium we would recommend continuinga sitter. We agree with primary team on holding her home Ambien 10mg at bedtime help prevent episodes of delirium. We do agree with primary team of continuing outpatient medications for her anxiety. We recommend obtaining TSH, B12, Folate, and Iron levels as well as checking HIV and Syphilis. Diagnosis Acute encephalopathy / delirium due to subdural hematoma s/p craniotomy Hx of alcohol abuse Hx of anxiety COPD CHF HTN HLD CVA TIA Hx of DVT RECOMMENDATIONS Safety: SAFE-T Suicide Risk Assessment 1) Luiza May has risk factors for suicide including delirium, pain, and change in medical status. Actively modifiable risk factors include pain. 2) She has protective factors including no psychiatric history. 3) She is currently expressing an absence of active suicidal ideation, intent, plan, or behaviors . 4) After considering the intensity and nature of suicidal thoughts and behaviors from this clinicalinterview, including her pertinent static and dynamic/modifiable suicide risk factors, as well as the impact of current protective factors, based on clinical judgment it appears that Luiza May i s currently at low risk for suicide. Based upon this assessment, would proceed with the following to mitigate suicide risk: Low risk: Suicide precautions do not appear to be necessary at present, but would remain mindful of the limitations of cross-sectional risk assessment. Continue sitter for delirium/unintentional harm in the setting of her AMS Continue to assess the patient for changes in suicidal thoughts, plans, behavior, and intent duringdaily rounding or with any significant change in circumstances. Please notify the psychiatry consult team if further safety concerns arise. Suicide risk can be further mitigated by reorienting patient and using preventative measures of delirium. Additional treatment planning steps to reduce suicide risk including increased contact with supportive individuals (boyfriend). Diagnostic Workup: 1. We recommend to obtain a B12, Folate, Thiamine, TSH and Iron level to rule out organic causes ofAMS 2. We recommend checking HIV, Syphilis to rule out disease etiology of AMS. Medications: 1. We recommend initiating Seroquel 25mg at bedtime to assist with sleep to manage delirium 2. If patient becomes agitated/violent, can initiate 25mg PO PRN q 6 hours 3. We agree with primary team to hold Ambien 10mg at bedtime to help prevent delirium 4. We recommend initiating Melatonin 3mg at bedtime to assist with night time sleep Non-pharmacological: 1. Patient is not oriented, unable to engage in conversation. Please follow delirium precautions below Patient is exhibiting signs of delirium including decreased awareness of environment with poor attention. Best treatment of delirium is to treat underlying medical problems. Regarding pharmacotherapy, low dose antipsychotic can help, however antipsychotics can lower seizure threshold, prolong QT leading to arrhythmia (continue telemetry) and cause EPS. If delirium persists, could consider brain MRI. Background slowing on EEG would support diagnosis of delirium. -Non pharmacologic evidence based treatment includes repeated reorientation, promotion of good sleep hygiene, room with window, early mobilization, correction of dehydration, use of sensory aids (glasses, hearing aids), familiar faces (family, primary nurse) and the minimization of unnecessary noise and stimuli. Regarding pharmacology, avoid anticholinergic drugs and benzodiazepines to the extentpossible. Opiates can cause and worsen delirium but untreated pain can as well. The psychiatry consultation team is available for questions M-F 8a-5p at [phone]. The on-call residential sales consultant can be reached outside these hours at the same pager number [phone]. Case staffed with attending psychiatrist, Dr. Castro. Thank you for allowing us to participate in the care of this patient. Juana Brown DO PGY-2, Psychiatry ATTENDING ATTESTATION I saw and examined Luiza May on 01/15/[address] Juana Brown DO. I discussed the findings and therapeutic plan with Dr. Brown. I agree with the history, examination, and medical decision making as documented. I have edited the above report as needed to reflect my findings. Luiza May is a 66 year old female with history of COPD, CHF, HTN, HLD, CVA, DVT, alcohol abuse, and anxiety who presented to [facility] ED after a fall at home. She was found to have a subdural hematoma at outside hospital, intubated, and transferred to [facility] for further management. Psychiatry was consulted after she voiced she doesn't feel life is worth living anymore and was noted to be confused and hallucinating by RN. On evaluation today, she was markedly delirious with decreased awareness, inability to maintain wakefulness, and disorientation. Suicide risk appears to be low but she is at risk for accidental injury due to delirium. Agree with recommendations noted above. I personally reviewed data including but not limited to the following: Imaging - CT Head showed post-operative changes from subdural hematoma evacuation, chronic bilateral cerebellar infarcts. I independently reviewed the images. EKG - 01/08/2022 tracing reviewed: NSR (82 BPM). QTc 469 ms. Labs - Chemistries stable. CBC stable, with anemia. UDS positive for benzodiazepines, fentanyl, opiates (received sedatives prior to arrival at [facility]). Urine culture with no growth. OARRS - Ambien 10 mg tabs last dispensed 12/11/2021. Appears chronic. Recommend holding as she has been hospitalized for 7 days without Ambien and risk of withdrawal is lower at this point. Rayray Castro MD Shook Machine Operator Consultation-Liaison Psychiatry * Gerard Segovia MD - 01/08/2022 11:45 PM EDTAssociated Order(s): IP CONSULT TO SURGERY - ORTHOPAEDICS Orthopaedic Spine Consult Note Reason for consult: Age indeterminate T12 compression fx Chief Complaint: intubated SUBJECTIVE HPI: Luiza May is a 66 y.o. hx of alcohol abuse, anxiety, COPD, CHF, HTN, HLD, CVA and TIA, DVT, who presents initially as a hemorrhagic stroke alert but was found to have been a fall at home with unknown time down. Patient was taken to OSH where she was found to have subdural hematoma with right to left midline shift of 12mm with mild subfalcine and uncal herniation. On arrival to [facility] patient was intubated. It was noted that in the ED she would withdraw from pain, open her eyes to voice. Patient taken emergently to OR with NSGY for right sided decompressive craniectomy, placement of Epidural drain. Orthopaedics was consulted due to a age-indeterminate T12 compression fx. Patient was evaluated in the PACU several hours after surgery. She was intubated and sedated. Review of Symptoms: Pertinent items are noted in the HPI. Denies any fevers, chills, chest pain, SOB, nausea, vomiting, bowel/bladder incontinence, saddle anesthesia Operative Risk Assessment: Prior history of DVT/PE: yes Family history of DVT/PE: denies Prior history of coagulopathy: denies Prior complications with anesthesia: denies Anticoagulation use: denies SHx: Social History Tobacco Use Smoking status: Not on file Smokeless tobacco: Not on file Substance Use Topics Alcohol use: Not on file Unable to Obtain social history SHx reviewed and patient denies any further SHx pertinent to the current presenting illness/injury than what is listed above FHx: History reviewed. No pertinent family history. FHx reviewed and patient denies any further FHx pertinent to the current presenting illness/injury than what is listed above PMHx: No past medical history on file. PMHx reviewed and patient denies any further PMHx pertinent to the current presenting illness/injury than what is listed above PSHx: No past surgical history on file. PSHx reviewed and patient denies any further PSHx pertinent to the current presenting illness/injury than what is listed above Medications: sodium chloride 0.9% 0-250 mL Intravenous See admin instructions Allergies: Not on File PMHx, PSHx, Meds, Allergies, SocHx and FamHx were reviewed and patient denies any additional hx pertinent to the current presenting illness/injury other than what's mentioned in the HPI above. OBJECTIVE Physical Exam: Vitals: 01/08/22 2215 01/08/22 2230 01/08/22 2245 01/08/22 2300 BP: 103/53 102/55 108/55 107/55 Pulse: 89 90 95 95 Resp: 16 16 16 16 Temp: 99.7 degrees F (37.6 degrees C) TempSrc: Infrared SpO2: 100% 100% 100% 100% Weight: Gen: intubated and sedated Spine Exam: Inspection: No gross abnormalities. No draining wounds ROM: unable to assess Palpation: unable to assess tenderness Upper Extremity: Strength Unable to assess Sensory to light touch and pinprick Unable to assess Reflexes Biceps (C5): R 2+ L 2+ Brachioradialis (C6): R 2+ L 2+ Triceps (C7): R 2+ L 2+ Lower Extremity Strength Unable to assess Patient will withdraw to pinch of BLE Sensory to light touch and pinprick Unable to assess Reflexes Patellar (L4): R 2+ L 2+ Achilles (S1): R 1+ L 1+ Special Tests: Clonus (R/L): 0 beats / 0 beats Babinksi (R/L): down / down Neuro Other: Rectal tone: resting and volitional tone intact Gait: Gait: unable to be assesed IMAGING - Independent review. CT: chronic, mild compression fracture of T12 ASSESSMENT 1. 66 y.o. female with hx alcohol abuse, anxiety, COPD, CHF, HTN, HLD, CVA and TIA, DVT, who presents to [facility] with SDH hematoma now POD0 s/p craniectomy with NSGY. Orthopaedics was consulted for chronic T12 compression fx. Patient intubated and sedated, so unable to fully evaluate patient. PLAN: - No emergent operative orthopaedic intervention indicated at this time - Patient will need neuro exam when off sedation - Recommend standing XR of T/L spine when able -Dispo: pending clinical course This consult will discussed with attending Dr. Childs and the orthopaedic Spine team. Patient will be followed by orthopaedic surgery spine team and further recs may follow. Thank you for allowing Orthopaedic Surgery to participate in this patient's care. Please do not hesitate to call the on-call resident with any questions. Gerard Segovia MD Orthopaedic Surgery, PGY-2 Pager #[phone] Associated attestation - Becky Childs MD - 01/09/2022 8:10 AM EDT Orthopaedic Surgery Attending (Spine) I discussed the findings, imaging studies and therapeutic plan with the resident/fellow. I agree with the history, physical examination, and medical decisions as outlined. Becky Childs MD * Elin Boswell MD - 01/08/2022 3:46 PM EDTAssociated Order(s): IP CONSULT TO SURGERY - TRAUMA TRAUMA AND ACUTE CARE SURGERY - TRAUMA H & P Patient Name: Luiza May 66 y.o. female Date of Evaluation: 01/08/2022 Trauma Attending: Dr. Hola MAR: TRAUMA LEVEL: Trauma Consult Inter-facility Transfer: Yes Luiza May is a 66 y.o. female transported to [facility] s/p Found down. Patient was found down at home. Unknown how long patient was down. She takes ASA, noother blood thinners reported. She first presented to an OSH. CT Imaging was concerning for [id number] midline shift of 12 mm. Patient was electively intubated for transport to [facility]. Neurosurgery consulted upon arrival. Complicating Factors: ASA Pre-hospital Care Provided: Intubated ROS: [x] Unable to obtain due to altered sensorium Unable to obtain. Patient intubated. PRIMARY SURVEY: Airway/C-Spine: Intubated, Trachea Midline, Cervical collar in place Breathing/Pulmonary: Spontaneous, Bilateral breath sounds, Equal rise and fall of chest Circulation/Cardiovascular: 2+ and symmetric, No significant bleeding, Skin pink, warm and dry, well perfused Disability/Neurologic: G.C.S: 2 - Opens eyes to pain, 5 - Pushes away noxious stimulus, 1 - Makes no noise G.C.S. Total: 8 Exposure: Exposure achieved. SECONDARY SURVEY: VS: BP 108/59 Pulse 79 Resp 18 Wt 69.4 kg (153 lb) SpO2 100% O2 Sat (%): [99 %-100 %] 100 % O2 Device: ventilator (mechanical ventilation) Oxygen Concentration (%): [40-50] 40 ETCO2 (mm Hg) (Respiratory Monitoring): [42-50] 50 Ventilator Type: Transport Vent Ventilator/Non-Ventilator Mode: A/C VC Ventilator On (Started/Restarted): 1425 Set/Target Tidal Volume: [450] 450 Set Respiratory Rate/Release Rate: [18-20] 20 Total Respiratory Rate: [18] 18 PEEP (cm H2O): [6] 6 Peak Inspiratory Pressure (cmH2O): [36] 36 Ventilator Type: Transport Vent Set/Target Tidal Volume: [450] 450 Set Respiratory Rate/Release Rate: [18-20] 20 Total Respiratory Rate: [18] 18 PEEP (cm H2O): [6] 6 Peak Inspiratory Pressure (cmH2O): [36] 36 Unable to obtain. Patient taken emergently to OR by Neurosurgery. AMPLE HISTORY: [x] Unable to obtain due to altered sensorium Allergies: has no allergies on file. Home Medications: Past Medical History: unable to obtain Past Surgical History: unable to obtain Social History: has no history on file for tobacco use, alcohol use, and drug use. Family History: family history is not on file. Last Meal: unable to obtain DIAGNOSTIC STUDIES: Labs: Lab Results Component Value Date WBC 6.41 01/08/2022 HGB 7.1 (L) 01/08/2022 PLATELET 64 (L) 01/08/2022 SODIUM 137 01/08/2022 SODIUM 137 01/08/2022 POTASSIUM 3.9 01/08/2022 POTASSIUM 4.0 01/08/2022 CHLORIDE 104 01/08/2022 CO2 25 01/08/2022 BUN 25 01/08/2022 CREATSERUM 0.67 01/08/2022 GFR >90 01/08/2022 GLUCOSE 88 01/08/2022 GLUCOSE 88 01/08/2022 HSTROP 16 01/08/2022 CPK 132 01/08/2022 LACT 1.3 01/08/2022 No results found for: [id number] Lab Results Component Value Date ETOHSERUM <10 01/08/2022 AMPMETUR Negative 01/08/2022 BENZOUR Negative 01/08/2022 [id number] Negative 01/08/2022 BUPREN Negative 01/08/2022 COCUR Negative 01/08/2022 METHADUR Negative 01/08/2022 CANNABINOIDS Negative 01/08/2022 FENTU Negative 01/08/2022 OPIATE Presumptive Positive (A) 01/08/2022 OXYCODONE Negative 01/08/2022 pH/PCO2/PO2/HCO3: 7.26/60/35/27 (01/08 1453) Imaging: CT ABDOMEN/PELVIS WITH CONTRAST VASCULAR TRAUMA Final Result IMPRESSION: 1. No convincing evidence of solid organ or hollow viscous injury within the abdomen or pelvis. 2. No free air, free fluid or loculated fluid collections in the peritoneal cavity 3. Multifocal cortical irregularity and scarring in both kidneys. 4. Postcholecystectomy status. Diffuse dilatation of the common bile duct and mild dilatation of the intrahepatic ducts likely secondary to prior cholecystectomy 5. No acute bony fractures in the visualized skeleton Hepatic trauma grade: N/A Spleen trauma grade: N/A Kidney trauma grade: N/A FACIAL WITHOUT CONTRAST Final Result IMPRESSION: No evidence of facial bone fracture. SPINE LUMBAR WITHOUT CONTRAST Final Result IMPRESSION: No evidence of fracture or dislocation of the lumbosacral spine. SPINE THORACIC WITHOUT CONTRAST Final Result IMPRESSION: 1. No evidence of acute fracture or dislocation of the thoracic spine. 2. Mild chronic compression fracture of T12. 3. Mild thoracic spondylosis, as above. SPINE CERVICAL WITHOUT CONTRAST Final Result IMPRESSION: 1. No evidence of fracture or dislocation of the cervical spine. 2. Mild cervical spondylosis, as above. HEAD WITHOUT CONTRAST Final Result IMPRESSION: Acute right subdural hematoma with possible 1 cm of leftward midline shift. Mild subfalcine and uncal herniation. Asymmetric enlargement of the left temporal horn, raising concern for trapped ventricle. Prominent area of low-attenuation in the right occipital lobe, concerning for a late subacute to chronic infarct. Additional more chronic appearing infarct in the left parietal lobe. Findings of right holohemispheric subdural hematoma and leftward midline shift was discussed with Dr. Nelson Carmona on 01/08/2022 3:25 PM. CHEST WITH CONTRAST VASCULAR TRAUMA (Results Pending) FRAIL Score for Geriatric Trauma (Age > 65) [x] Unable to obtain secondary to altered sensorium Fatigue: How much of the time during the past 4 weeks did you feel tired? Resistance: In the last 4 weeks, by yourself and not using aids, did you have any difficulty walking up 10 steps without resting? Ambulation: In the last 4 weeks, by yourself and not using aids, did you have any difficulty walking one block? Illness: Did your Doctor ever tell you that you have? [] Hypertension [] Diabetes [] Cancer (other than a minor skin cancer) [] Chronic lung disease (COPD, Emphysema) [] Heart attack [] Congestive heart failure [] Angina [] Asthma [] Arthritis [] Stroke [] Kidney disease Loss of Weight: Have you lost more than 5kg (11lbs) in the past year? Final Frail Score: If score is 3 or greater admit to PCU or ICU bed Geriatric Consult Placed: TRAUMA CATALOGUE OF INJURIES & INCIDENTAL FINDINGS: R acute subdural hematoma with 1 cm left midline shift and mild subfalcine and uncal herniation Incidental Findings: chronic T12 compression fracture CONSULTANTS: CT ABDOMEN/PELVIS WITH CONTRAST VASCULAR TRAUMA Final Result IMPRESSION: 1. No convincing evidence of solid organ or hollow viscous injury within the abdomen or pelvis. 2. No free air, free fluid or loculated fluid collections in the peritoneal cavity 3. Multifocal cortical irregularity and scarring in both kidneys. 4. Postcholecystectomy status. Diffuse dilatation of the common bile duct and mild dilatation of the intrahepatic ducts likely secondary to prior cholecystectomy 5. No acute bony fractures in the visualized skeleton Hepatic trauma grade: N/A Spleen trauma grade: N/A Kidney trauma grade: N/A FACIAL WITHOUT CONTRAST Final Result IMPRESSION: No evidence of facial bone fracture. SPINE LUMBAR WITHOUT CONTRAST Final Result IMPRESSION: No evidence of fracture or dislocation of the lumbosacral spine. SPINE THORACIC WITHOUT CONTRAST Final Result IMPRESSION: 1. No evidence of acute fracture or dislocation of the thoracic spine. 2. Mild chronic compression fracture of T12. 3. Mild thoracic spondylosis, as above. SPINE CERVICAL WITHOUT CONTRAST Final Result IMPRESSION: 1. No evidence of fracture or dislocation of the cervical spine. 2. Mild cervical spondylosis, as above. HEAD WITHOUT CONTRAST Final Result IMPRESSION: Acute right subdural hematoma with possible 1 cm of leftward midline shift. Mild subfalcine and uncal herniation. Asymmetric enlargement of the left temporal horn, raising concern for trapped ventricle. Prominent area of low-attenuation in the right occipital lobe, concerning for a late subacute to chronic infarct. Additional more chronic appearing infarct in the left parietal lobe. Findings of right holohemispheric subdural hematoma and leftward midline shift was discussed with Dr. Nelson Carmona on 01/08/2022 3:25 PM. CHEST WITH CONTRAST VASCULAR TRAUMA (Results Pending) ASSESSMENT AND PLAN: The patient was evaluated according to ATLS standards with Trauma Attending present. Luiza May is a 66 y.o. s/p Found down with CTH demonstrating R acute subdural hematoma with 1cm left midline shift and mild subfalcine and uncal herniation. - Chronic compression injury to T12 - Neurosurgery will take patient OR - Admission to Neurosurgery service - Tertiary in the AM by ACS Disposition: Patient will be admitted to Neurosurgery Service. Plan to follow-up on pending diagnostic images and lab work. Additional consults will be requested as needed. IIf there are any questions or concerns, please see the treatment team or page the Consult Resident#[phone] (Web Exchange, search Acute Care Surgery > Consults - Emergency General Surgery/Trauma Consults) Elin Boswell MD Vascular Surgery, PGY-2 Associated attestation - Josue Simental MD - 01/09/2022 7:50 AM EDT Images from the original note were not included. SURGERY ATTENDING ATTESTATION I, Josue Simental MD, was present and independently assessed and performed a physical examination of . uLiza May on the date of service noted in the present note. I personally reviewed the patient's medical records, laboratory data, and imaging studies available at the time of the encounter and discussed the differential diagnosis and management options with the team. I have edited the note and agree with the documented findings, assessment, and plan of care. In brief, Ms. May is a 66 y.o. female s/p Found down. Patient was found down at home. Unknown how long patient was down. She takes ASA, no other blood thinners reported. She first presented to [facility]. CT Imaging was concerning for [id number]-qj-aujp midline shift of 12 mm. Patient was electively intubated for transport to [facility]. Neurosurgery consulted upon arrival. Advance Trauma Life Support (ATLS)guidelines were strictly followed. Primary and secondary surveys were completed. Focused assessmentwith sonography in trauma (FAST) exam revealed no evidence of intra-abdominal or pericardial fluid suggesting hemorrhage. Appreciate the Emergency Department team collaboration. Assessment and plan: CTH demonstrating R acute subdural hematoma with 1 cm left midline shift and mild subfalcine and uncal herniation. 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 Luiza May who agrees with the plan of care. All the patient's questions were answered to satisfaction. Thank you for allowing me to participate in the care of this patient. Please do not hesitate to contact me directly withany questions or concerns. Josue Simental MD, FACS button sawyer Division of Trauma, Critical Care, and Burn [facility] * Lindsay Lemus MD, PhD - 01/08/2022 2:50 PM EDTAssociated Order(s): IP CONSULT TO SURGERY - NEURO Neurosurgery Consult Note Reason for Consult: fall, subdural, with midline shift from R to L 12 mm Contact Number: [phone] [facility] Ms. Luiza May is a 66 y.o. female w/ COPD, CHF, HTN, CVA in 2017, DVT in 2016 and TIA in 2019presenting with confusion. Patient was found down at home with yoly HUANG and taken to OSH, intubated at approximately 12:30pm, and where a CTH revealed a R sided acute SDH with 12mm midline shift. She was transported to [facility] for further care. She takes asa 81 for unknown reasons. ROS: All other systems are negative except as mentioned in HPI No past medical history on file. No past surgical history on file. History reviewed. No pertinent family history. Allergies Not on File Infusions sodium chloride 0.9% Scheduled Meds PRN Meds: hydrALAZINE, labetalol Home Meds Prior to Admission medications Not on File Vitals Pulse (Heart Rate): [78-92] 78 Resp Rate: [16-18] 16 BP: (104-113)/(53-71) 104/53 O2 Sat (%): [99 %-100 %] 100 % Physical GCS 8T PERRL Intubated Opens eyes to sternal stimulation Withdraws on the left Labs No results for input(s): PT, INR in the last 72 hours. Imaging: CT HEAD WITHOUT CONTRAST (Results Pending) CT SPINE CERVICAL WITHOUT CONTRAST (Results Pending) CT SPINE THORACIC WITHOUT CONTRAST (Results Pending) CT SPINE LUMBAR WITHOUT CONTRAST (Results Pending) CT FACIAL WITHOUT CONTRAST (Results Pending) CT CHEST WITH CONTRAST VASCULAR TRAUMA (Results Pending) CT ABDOMEN/PELVIS WITH CONTRAST VASCULAR TRAUMA (Results Pending) A/P: Luiza May is a 66 y.o. female w/ symptomatic large R sided acute SDH with 12mm midline shift. - Meets operative criteria, will prepare for OR - PT INR plates labs - neuro checks q1h - goal SBP<160, INR<1.5, Platelets >100k - hold all antiplatelet agents and anticoagulation - keppra 1g bid x7d Staff: Ignacia Covering: NS3 ([phone]) ## neurosurgery coverage changes at 0530/1730; if 0530 or 1730 has passed since original consult note placed, please page covering pager above ## Associated attestation - Severo Jurado MD - 01/12/2022 2:02 PM EDT Attending Physician Note I have seen and examined Luiza May, reviewed her images, and agree with the resident's assessment and plan. I have discussed the situation with the patient and family. The patient presents witha diagnosis of acute traumatic SDH with local mass effect, minimal shift, asymptomatic, on dual antiplatelet therapy. The treatment plan is asnoted above. Based on the history and exam, I agree with the medical decision making with the following comment(s): we will follow with serial CT scans and neurologic evaluations while she returns to normal platelet function off antiplatelet therapy. No surgery recommended at this time. [facility] and physical note* Deborah Amador, L D RN-AGRICULTURE WORKER - 01/08/2022 9:57 PM EDT NEUROCRITICAL CARE HISTORY AND PHYSICAL HOSPITAL VISIT DEMOGRAPHICS Patient: Luiza May Code status: Full Code Admission date: 01/08/2022 2:26 PM Hospital days: LOS: 0 days CHIEF COMPLAINT SDH HISTORY OF PRESENT ILLNESS Luiza May is a 66 y.o. female with a past history of remote right-sided CVA, COPD on home O2,HTN, previous RLE DVT, ETOH-use, and Takotsubo cardiomyopathy. Patient found on floor 01/07 altered and not acting like herself. Patient taken to OSH per EMS. CTH demonstrated right-sided SDH with 1.5 cm MLS and mass effect. She takes baby ASA at home. She was intubated for airway protection and transported to [facility] for NSG intervention. Upon arrival to [facility], a full trauma workup was completed identifying a chronic compression fracture of T12. CTH demonstrated an acute right SDH with 1 cm leftward MLS and mild subfalacine and uncal herniation. The patient was taken to OR per NSG for a right-sided decompressive craniectomy. INTERVAL HISTORY SINCE ADMISSION 01/08/2022: admitted to [facility] post-op right-sided decompressive craniectomy, ballard-culture REVIEW OF SYSTEMS Review of systems not obtained due to sedation and mechanical ventilation. HISTORY No past medical history on file. No past surgical history on file. Social History Socioeconomic History Marital status: Spouse name: Not on file Number of children: Not on file Years of education: Not on file Highest education level: Not on file Occupational History Not on file Tobacco Use Smoking status: Not on file Smokeless tobacco: Not on file Substance and Sexual Activity Alcohol use: Not on file Drug use: Not on file Sexual activity: Not on file Other Topics Concern Not on file Social History Narrative Not on file Social Determinants of Health Financial Resource Strain: Not on file Food Insecurity: Not on file Transportation Needs: Not on file Physical Activity: Not on file Stress: Not on file Social Connections: Not on file Intimate Partner Violence: Not on file Housing Stability: Not on file ALLERGIES AND HOME MEDICATIONS Allergies: has no allergies on file. Home Medications: No medications prior to admission. Prior to Arrival Meds: No medications prior to admission. Hospital Medications: Infusions: dexmedeTOMIDine (PRECEDEX) IV infusion sodium chloride 0.9% w/potassium Cl 75 mL/hr at 01/09/22 0400 Scheduled: ceFAZolin (ANCEF) IV intermittent 2 g Intravenous Q8HNS chlorhexidine 15 mL Oral Q12H faMOTIdine 20 mg Per NG tube Q12H Or faMOTIdine 20 mg Oral Q12H Or famotidine (PF) 20 mg Intravenous Q12H insulin regular Subcutaneous Q6H senna 8.6 mg Oral Daily Or senna 8.6 mg Per NG tube Daily sodium chloride 0.9% 0-250 mL Intravenous See admin instructions PRN: acetaminophen OR acetaminophen, Calcium Gluconate OR calcium gluconate IVPB, insulin regular AND BLOOD GLUCOSE (POC DEVICE) AND BLOOD GLUCOSE (POC DEVICE) UDPRN AND COMMUNICATION ORDER FOR NURSING CARE: For Blood Glucose LESS THAN 80 mg/dl AND dextrose AND glucose AND NOTIFY PHYSICIAN, Blood Glucose LESS THAN 80 mg/dl, hydrALAZINE OR hydrALAZINE, HYDROmorphone OR HYDROmorphone, hydrOXYzine hcl, labetalol OR labetalol, Magnesium Sulfate IVPB, ondansetron 4mg/2ml OR ondansetron, oxyCODONE OR oxyCODONE, polyethylene glycol OR polyethylene glycol, potassium chloride OR potassium chloride OR Potassium Bicarb-Citric Acid OR potassium chloride, sodium chloride 0.9%, Sodium Phosphate IVPB OR Sodium Phosphate IVPB PHYSICAL EXAM GENERAL: Lethargic and sedated on propofol - paused for exam, no acute distress HEENT: normocephalic, dressing c/d/I CARDIO: +S1S2, RRR, no m/r/g, no edema PULM: clear to auscultation bilaterally, equal chest rise; mechanically ventilated; scant secretions ABDOMINAL:rounded, soft, nontender, nondistended, active bowel sounds EXTREMITIES: no wounds nor lesions VASCULAR: 1+ distal pulses, capillary refill <3 seconds NEURO: lethargic/sedated upon arrival to unit - sedation paused for exam. Eyes open spontaneously. 3 mm PERRL. Roving eyes. Localizes to noxious stimulation in bilateral UE and withdrawals in bilateral LE. ASSESSMENT AND PLAN Neuro: (01/08/2022) 1 Day Post-Op s/p right-sided DHC Right-Sided SDH with 1.5 cm MLS and Mass Effect Chronic Compression Fracture of T12 (POA) Mild Subfalacine and Uncal Herniation Right occipital lobe subacute to chronic infarct - SDH Management: - Monitor neurostatus with neurochecks Q1H and pupilometer Q1H - Prevent further expansion with goal SBP <140 (see cards) - 01/08 NSGY consult: right-sided decompressive hemicran - ASA reversed with DDAVP 0.4 mcg/kg (28 mcg) x1 - Imaging: - 01/08 1507: Initial CT H: acute right SDH with leftward 1 cm MLS and mild subfalacine &uncal herniation. Asymmetrical enlargement of the left temporal horn, raising concern for trapped ventricle.Prominent area of low-attenuation in the right occipital lobe, concerning for a late subacute to chronic infarct. - 01/08 Post-op CTH: post-op changes with epidural drain placement. Residual SDH present predominantly along inferior frontal lobe and falx. Mass effect has significantly improved in comparison. Right occipital lobe hypoattentuation may indicated subacute infarct. Decreased mass effect. Left lateral ventricle stable and decreased in size. - Cytotoxic Cerebral Edema Management: - Goal Na 135 - 145; monitor Na QHS Recent Labs 01/08/22 1453 01/08/22 1656 01/08/22 1912 01/09/22 0158 SODIUM 137 137 139 141 141 OSMOLALITY 291 -- 297 295 CHLORIDE 104 -- 103 104 - Hemorrhage presumably 2/2 trauma etiology; evaluation for cause and source: - Complete TTE (see cards) ordered - Obtain LDL level and statin therapy if indicated (see cards) ordered - Obtain HA1C level (see endo) ordered - Defer antiplatelet therapy and therapeutic anticoagulation - Consider urine drug screen on admission if no stroke risk factors ordered - Consider hypercoagulability panel 24H-post tPA if no stroke risk factors - Initiate VTE prophylaxis after bleed stability established (see heme) - Pain/Sedation management - Tylenol 650mg Q4H PRN - Oxycodone 5mg Q4H PRN - Dilaudid 0.5-1mg Q3H PRN - Propofol gtt transitioned to Precedex post-op - T12 Compression Fracture: - Orthopedic Surgery Consulted: no emergent operative orthopedic intervention, recommend standing XR of T/L spine when able. Psych: Anxiety Insomnia ETOH-use, hx - Continue home Hydroxyzine 25 mg TID PRN - Hold Home Zolpidem 10 mg daily Pulm: COPD on home oxygen Acute Respiratory Failure 2/2 Acute SDH - 01/08 Intubated for AMS, extubation pending improved mental status Ventilator/Non-Ventilator Mode: A/C PRVC Set Respiratory Rate/Release Rate: 16 PEEP (cm H2O): 6 O2 Sat (%): 100 % (01/10 400) O2 Device: ventilator (mechanical ventilation) (01/10 400) Oxygen Concentration (%): 40 (01/10 400) ETCO2 (mm Hg) (Respiratory Monitoring): 42 (01/08 154) - Goal SpO2 >92%; wean FiO2 as tolerated - pH/PCO2/PO2/HCO3: 7.48/38/139/28 (01/09 227) - [id number], encourage pulmonary toileting - 01/09 CXR: pending 01/08 CT Chest: compression deformity of vertebral body of T12, no suspicious consolidative or nodular opacities in the lungs. No evidence of pneumothorax. Cards: Essential HTN Takotsubo cardiomyopathy, history Temp: [98.6 F (37 C)-101.9 F (38.8 C)] 100.58 F (38.1 C) Pulse (Heart Rate): [78-118] 118 Resp Rate: [16-20] 20 BP: (88-121)/(44-71) 99/53 Arterial Line (1) BP: (103-143)/(50-65) 143/65 O2 Sat (%): [99 %-100 %] 100 % Weight: [69.4 kg (153 lb)] 69.4 kg (153 lb) - Goal SBP <140, MAP >65 - Hold Home antihypertensives: Losartan 25 mg daily, carvedilol 12.5 mg BID - PRN labetalol and hydralazine for SBP >140 - TTE: Pending - 01/08 troponin: 16 - 01/08 ECG: NSR - Statin Therapy: Indicated if LDL >70 Recent Labs 01/08/221911 CHOLESTEROL 91 TRIG 114 HDL 37* LDL 31 Renal/: No Current Issues - Fluid Balance: - Goal: euvolemia - Net PmL/24H, PmL/admission - UOP PmL/24H - Continue soliman, (indication: maame-op) - Maintenance: 0.9NS w/ 20 KCl @ 75mL/hr - Daily Chem 10; electrolytes replaced per NCCU protocol Recent Labs 01/08/22165501/08/22191101/09/22 0158 SODIUM 139 141 141 POTASSIUM 4.3 3.8 3.7 CHLORIDE -- 103 104 CO2 -- 26 26 BUN -- 20 17 CREATSERUM -- 0.60 0.73 MAGNESIUM -- 1.6 1.5* PHOSPHORUS -- 2.1* 2.1* ICA 4.14* -- 4.34* GI/Nutrition: Risk for Dysphagia No results for input(s): ALBUMIN, BILIDIRECT, BILITOTAL, ALKPHOS, ALT, AST, TP, AMYLASE, LIPASE in the last 72 hours. - DIET NPO WITHOUT meds - There is no height or weight on file to calculate BMI. - Bowel regimen: - Last Bowel Movement: (CHRO) - Senna, miralax Endo: Risk for Stress-Induced Hyperglycemia Acute Hypoglycemia - Goal blood glucose 140-180 Recent Labs 01/08/22191101/09/22 0147 01/09/22 0158 01/09/22 0247 GLUCOSE 106* 76 85 95 - Insulin SSI: Q6H ID: Acute Leukocytosis 2/2 Acute Stress Recent Labs 01/08/22165501/08/22191101/09/22 0158 01/09/22 0227 WBC -- 9.08 12.22* -- LACT 1.4 -- -- 0.7 PROCALCITONI -- -- 0.10 -- - Temp (24hrs), Av.2 F (37.9 C), Min:98.6 F (37 C), Max:101.9 F (38.8 C) - PRN Tylenol for T>100.4F - Most recent and positive cultures: Date Collected Source Result Date Finalized 01/09 BC Pending 01/09 UA Pending - Antiinfectives: Start Date Antiinfective Coverage Course Length Stop Date 01/09 Ancef Maame-op TBD Heme/Onc: Acute Blood Loss Anemia Thrombocytopenia Recent Labs 01/08/22 1912 01/09/22 0158 WBC 9.08 12.22* RBC 2.41* 3.28* HGB 6.9* 9.1* HCT 21.2* 27.5* PLATELET 219 208 PT 15.0* 14.1 PTT 27.3 26.7 INR 1.2* 1.1 - Goal plt >100, INR <1.4, Hgb >7 - OR EBL: 250 mL - OR Blood products given: 1 units PRBCs, 2 pools plt Musc: Acute Deconditioning - PT/OT consulted and following - Current Activity Order: AAT Social/Dispo: - Code status: Full Code - Primary Emergency Contact: ameena zhang - 01/08: Last updated Family. - 01/08: Medications reconciled - Discharge planning per PCRM/SW. ICU Checklist: [ ] CAM-ICU [ ] DVT ppx; [ ] SCDs; [ ] Lovenox, [ ] heparin - HOLD [X ] Stress ulcer prophylaxis: Pepcid (indication: mechanical ventilation) - Lines/Tubes: [place]: inserted 01/08, (indication:periop) CVC: inserted 01/08, (indication:IV access) Soliman: inserted 01/08, (indication:periop intake/output management) Enteral access: inserted 01/08, OG [ ] gastric; [ ] post-pyloric Luiza May remains critically ill in the neurocritical care unit requiring frequent neurochecks, strict BP control and monitoring, follow up on imaging, strict I&Os, pain management, and monitoring for neurologic decline. Today I spent greater than 30 minutes providing critical care services, including evaluation and management of SDH and post-op management. This time does not include procedures. Discussed with NCCU Attending, Dr. margarito Amador, L D RN-AGRICULTURE WORKER Service pager: [phone] Service [place] #: [phone] (Beds [id number] and beds), [place] #: [id number] (Beds 1042- 1053 and [facility] beds) 01/09/22 4:43 AM [facility] Note* Nadia Avendano RN - 01/08/2022 3:56 PM EDT Patient taken to OR with this RN * Nadia Avendano RN - 01/08/2022 3:48 PM EDT Neurosurg at bedside, patient to go to OR at this time. RT called to bedside. * Kailee Lyon MD - 01/08/2022 2:43 PM EDT Medical necessity for IV contrast, trauma. Kailee Lyon MD Resident 01/08/22 8080 * ROSCOE Quinn - 01/08/2022 2:41 PM EDT SW responded to Level A Hemorrhagic Stroke Alert brought in by [facility] as a transfer from [facility]. Patient was intubated at the OSH, and multiple family members were present and aware of her transfer. Daughter (Ameena Zhang, ) was assisting with care planning and will be coming to this hospital. SW will be available for support as needed while patient is in the ED. BURTON Hurley, [facility] Occ Therapist, Emergency Dept. [phone] Available via Secure Chat * Nadia Avendano RN - 01/08/2022 2:39 PM EDT Patient in CT receiving ballard scan at this time. * Nadia Avendano RN - 01/08/2022 2:34 PM EDT 100mcg fentanyl given IVP at this time * Nadia Avendaon RN - 01/08/2022 2:33 PM EDT Patient in CT at this time, given 2mg versed at this time. * Nadia Avendano RN - 01/08/2022 2:26 PM EDT Pt transferred from [facility] by [facility] for hemorrhagic stroke. Pt found down this morning by sig other, found to have R SDH, with 1.5cm shift. Pt arrived to ED intubated with propofol GTT stopped due to hypotension en route. 75mcg of fentanyl given by EMS en route for sedation. 1500 mg keppragiven as well. Hx COPD, CHF, HLD * Lillian Thornton RN - 01/08/2022 2:26 PM EDT Bed: 33 Expected date: 01/08/22 Expected time: Means of arrival: Air Comments: * Kailee Lyon MD - 01/08/2022 2:25 PM EDT S: CC/HPI: Luiza May is a 66 y.o. female with history of alcohol abuse, anxiety, COPD, congestive heart failure, HTN, HLD, CVA and TIA, DVT, on aspirin and no other blood thinners who presents initially as hemorrhagic stroke alert but was truly a fall at home with unknown down time down by family confused taken outside hospital. At outside hospital head imaging revealed subdural hematoma with [id number] midline shift of 12 mm. Patient was electively intubated for transport to [facility]. Blood sugar wasnormal at outside hospital. In our ED we consulted Neurosurgery and Trauma, patient was intubated and unable to give review of systems or responsive exam so she was ballard scanned. She withdrew from pain, open her eyes to voice, and is intubated. She was given Versed and fentanyl for sedation for her CT scans. ROS: Unable to perform due to patient condition. PM/SHx: No past medical history on file. No past surgical history on file. Allergies: Not on File Social Hx: Social History Socioeconomic History Marital status: Spouse name: Not on file Number of children: Not on file Years of education: Not on file Highest education level: Not on file Occupational History Not on file Tobacco Use Smoking status: Not on file Smokeless tobacco: Not on file Substance and Sexual Activity Alcohol use: Not on file Drug use: Not on file Sexual activity: Not on file Other Topics Concern Not on file Social History Narrative Not on file Social Determinants of Health Financial Resource Strain: Not on file Food Insecurity: Not on file Transportation Needs: Not on file Physical Activity: Not on file Stress: Not on file Social Connections: Not on file Intimate Partner Violence: Not on file Housing Stability: Not on file Family Hx: History reviewed. No pertinent family history. O: VS: Vitals: 01/08/22 1518 01/08/22 1521 01/08/22 1524 01/08/22 1527 BP: 108/59 Pulse: 79 Resp: 18 SpO2: 99% 100% 100% 100% Weight: PE: Physical Exam Vitals and nursing note reviewed. Constitutional: General: She is not in acute distress. Appearance: She is ill-appearing. She is not toxic-appearing or diaphoretic. Interventions: She is sedated, intubated and restrained. Cervical collar in place. HENT: Head: Normocephalic. Right Ear: External ear normal. Left Ear: External ear normal. Nose: Nose normal. Mouth/Throat: Mouth: Mucous membranes are moist. Pharynx: Oropharynx is clear. Eyes: General: No scleral icterus. Right eye: No discharge. Left eye: No discharge. Conjunctiva/sclera: Conjunctivae normal. Neck: Comments: C-collar in place Cardiovascular: Rate and Rhythm: Normal rate and regular rhythm. Pulses: Normal pulses. Heart sounds: Normal heart sounds. No murmur heard. Pulmonary: Effort: Pulmonary effort is normal. No respiratory distress. She is intubated. Breath sounds: Normal breath sounds. No wheezing, rhonchi or rales. Comments: Intubated and ventilated Abdominal: General: Bowel sounds are normal. Palpations: Abdomen is soft. Tenderness: There is no abdominal tenderness. There is no guarding. Musculoskeletal: General: No deformity or signs of injury. Normal range of motion. Cervical back: Normal range of motion. No rigidity or tenderness. Right lower leg: No edema. Left lower leg: No edema. Skin: General: Skin is warm and dry. Capillary Refill: Capillary refill takes less than 2 seconds. Coloration: Skin is not jaundiced. Findings: No bruising or rash. Neurological: General: No focal deficit present. Mental Status: She is oriented to person, place, and time. LABS: Results for orders placed or performed during the hospital encounter of 01/08/22 [facility] 7 - ED Result Value Ref Range Sodium 137 135 - 145 mmol/L Potassium 3.9 3.5 - 5.0 mmol/L Chloride 104 98 - 108 mmol/L CO2 25 21 - 31 mmol/L Glucose 88 70 - 99 mg/dL BUN 25 7 - 25 mg/dL Creatinine 0.67 0.50 - 1.20 mg/dL Bun/Crea Ratio 37 Osmolality (Calculated) 291 278 - 305 mOsm/kg Anion Gap 12 7 - 17 mmol/L eGFR, CKD-EPI, Female >90 >=60 mL/min/1.73m2 ALCOHOL (ETHANOL),BLOOD Result Value Ref Range Alcohol, Serum <10 <10 mg/dL Alcohol None Detected HIGH SENSITIVITY TROPONIN I - SINGLE ORDER Result Value Ref Range hs-Troponin I 16 <34 ng/L BETA HCG, QUAL, BLOOD Result Value Ref Range HCG (Qual) Serum Negative Negative CBC AND ELECTRONIC DIFF Result Value Ref Range WBC Count 6.41 3.99 - 11.19 K/uL RBC Count 2.43 (L) 3.91 - 5.04 M/uL Hemoglobin 7.1 (L) 11.4 - 15.2 g/dL Hematocrit 22.5 (L) 34.9 - 44.3 % Mean Cell Volume 92.6 79.6 - 97.7 fL Mean Cell Hgb 29.2 25.9 - 33.9 pg Mean Cell Hgb Conc 31.6 31.4 - 35.9 g/dL RBC Distribution 12.8 10.8 - 14.9 % Platelet Count 64 (L) 150 - 393 K/uL Mean Platelet Volume DIFF STATUS Electronic Differential Segs + Bands Auto 75.0 % Immature Grans % 0.6 % Lymphocyte % Auto 16.4 % Monocyte % Auto 7.5 % Eosinophil % Auto 0.2 % Basophil % Auto 0.3 % Nucleated RBC 0.0 <=0.2 /100 WBC Segs + Bands,Absolute Auto 4.81 1.64 - 7.28 K/uL Immature Grans Absolute 0.04 <=0.08 K/uL Abs Lymph Auto 1.05 (L) 1.16 - 3.51 K/uL Abs Sandoval Auto 0.48 0.22 - 0.87 K/uL Abs Eos Auto <0.04 0.00 - 0.42 K/uL Abs Baso Auto <0.04 0.00 - 0.15 K/uL CK Result Value Ref Range Creatine Kinase 132 30 - 184 U/L VENOUS BLOOD GAS (FULL PANEL) Result Value Ref Range pH 7.26 (L) 7.32 - 7.43 PCO2 60 (H) 36 - 52 mm Hg PO2 35 mm Hg HCO3 27 22 - 29 mmol/L sO2 52 (L) 70 - 80 % Base Excess -0.2 -3.0 - 3.0 mmol/L Glucose, Whole Blood 88 70 - 99 mg/dL Lactate, Whole Blood 1.3 0.5 - 1.6 mmol/L Sodium, Whole Blood 137 135 - 145 mmol/L Potassium, Whole Blood 4.0 3.5 - 5.0 mmol/L Ionized Calcium, Whole Blood 4.70 4.60 - 5.30 mg/dL Total Hemoglobin 8.0 (L) 11.4 - 15.2 g/dL Hematocrit (Calculated) 24.0 (L) 34.2 - 45.6 % Oxyhemoglobin 51 (L) 94 - 98 % Carboxyhemoglobin 1.8 (H) <=1.5 % Methemoglobin 0.0 <=1.5 % Specimen Type Venous IMAGING: CT ABDOMEN/PELVIS WITH CONTRAST VASCULAR TRAUMA Final Result IMPRESSION: 1. No convincing evidence of solid organ or hollow viscous injury within the abdomen or pelvis. 2. No free air, free fluid or loculated fluid collections in the peritoneal cavity 3. Multifocal cortical irregularity and scarring in both kidneys. 4. Postcholecystectomy status. Diffuse dilatation of the common bile duct and mild dilatation of the intrahepatic ducts likely secondary to prior cholecystectomy 5. No acute bony fractures in the visualized skeleton Hepatic trauma grade: N/A Spleen trauma grade: N/A Kidney trauma grade: N/A SPINE LUMBAR WITHOUT CONTRAST Final Result IMPRESSION: No evidence of fracture or dislocation of the lumbosacral spine. SPINE THORACIC WITHOUT CONTRAST Final Result IMPRESSION: 1. No evidence of acute fracture or dislocation of the thoracic spine. 2. Mild chronic compression fracture of T12. 3. Mild thoracic spondylosis, as above. SPINE CERVICAL WITHOUT CONTRAST Final Result IMPRESSION: 1. No evidence of fracture or dislocation of the cervical spine. 2. Mild cervical spondylosis, as above. HEAD WITHOUT CONTRAST Final Result IMPRESSION: Acute right subdural hematoma with possible 1 cm of leftward midline shift. Mild subfalcine and uncal herniation. Asymmetric enlargement of the left temporal horn, raising concern for trapped ventricle. Prominent area of low-attenuation in the right occipital lobe, concerning for a late subacute to chronic infarct. Additional more chronic appearing infarct in the left parietal lobe. Findings of right holohemispheric subdural hematoma and leftward midline shift was discussed with Dr. Nelson Carmona on 01/08/2022 3:25 PM. FACIAL WITHOUT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 COPD Viral pneumonia, unspecified 05/03/2006 Overview: Pneumonia documented as of this encounter (statuses as of 02/04/2023) [facility] of Past illness Narrative* Problem Noted Date Diagnosed Date Resolved Date Chronic pulmonary heart disease 05/03/2006 10/01/2022 Cough 04/01/2006 05/03/2006 Obstructive chronic bronchit is with exacerbation 05/03/2006 Overview: COPD Viral pneumonia, unspecified 05/03/2006 Overview: Pneumonia documented as of this encounter (statuses as of 02/05/2023) [facility] of Past illness Narrative* Problem Noted Date Diagnosed Date Resolved Date Chronic pulmonary heart disease 05/03/2006 10/01/2022 Cough 04/01/2006 05/03/2006 Obstructive chronic bronchit is with exacerbation 05/03/2006 Overview: COPD Viral pneumonia, unspecified 05/03/2006 Overview: Pneumonia documented as of this encounter (statuses as of 02/15/2023) [facility] Narrative* Problem Noted Date Diagnosed Date Resolved Date Chronic pulmonary heart disease 05/03/2006 10/01/2022 Cough 04/01/2006 05/03/2006 Obstructive chronic bronchit is with exacerbation 05/03/2006 Overview: COPD Viral pneumonia, unspecified 05/03/2006 Overview: Pneumonia documented as of this encounter (statuses as of 03/02/2023) [facility] of Past illness Narrative* Problem Noted Date Diagnosed Date Resolved Date Chronic pulmonary heart disease 05/03/2006 10/01/2022 Cough 04/01/2006 05/03/2006 Obstructive chronic bronchit is with exacerbation 05/03/2006 Overview: COPD Viral pneumonia, unspecified 05/03/2006 Overview: Pneumonia documented as of this encounter (statuses as of 03/05/2023) [facility] of Past illness Narrative* Problem Noted Date Diagnosed Date Resolved Date Chronic pulmonary heart disease 05/03/2006 10/01/2022 Cough 04/01/2006 05/03/2006 Obstructive chronic bronchit is with exacerbation 05/03/2006 Overview: COPD Viral pneumonia, unspecified 05/03/2006 Overview: Pneumonia documented as of this encounter (statuses as of 03/12/2023) [facility] of Past illness Narrative* Problem Noted Date Diagnosed Date Resolved Date Chronic pulmonary heart disease 05/03/2006 10/01/2022 Cough 04/01/2006 05/03/2006 Obstructive chronic bronchit is with exacerbation 05/03/2006 Overview: COPD Viral pneumonia, unspecified 05/03/2006 Overview: Pneumonia documented as of this encounter (statuses as of 03/26/2023) [facility] of Past illness Narrative* Problem Noted Date Diagnosed Date Resolved Date Chronic pulmonary heart disease 05/03/2006 10/01/2022 Cough 04/01/2006 05/03/2006 Obstructive chronic bronchit is with exacerbation 05/03/2006 Overview: COPD Viral pneumonia, unspecified 05/03/2006 Overview: Pneumonia documented as of this encounter (statuses as of 03/27/2023) [facility] of Past illness Narrative* Problem Noted Date Diagnosed Date Resolved Date Chronic pulmonary heart disease 05/03/2006 10/01/2022 Cough 04/01/2006 05/03/2006 Obstructive chronic bronchit is with exacerbation 05/03/2006 Overview: COPD Viral pneumonia, unspecified 05/03/2006 Overview: Pneumonia documented as of this encounter (statuses as of 04/09/2023) [facility] History of Past illness Narrative* Problem Noted Date Diagnosed Date Resolved Date Chronic pulmonary heart disease 05/03/2006 10/01/2022 Cough 04/01/2006 05/03/2006 Obstructive chronic bronchit is with exacerbation 05/03/2006 Overview: COPD Viral pneumonia, unspecified 05/03/2006 Overview: Pneumonia documented as of this encounter (statuses as of 04/15/2023) [facility] History of Past illness Narrative* Problem Noted Date Diagnosed Date Resolved Date Chronic pulmonary heart disease 05/03/2006 10/01/2022 Cough 04/01/2006 05/03/2006 Obstructive chronic bronchit is with exacerbation 05/03/2006 Overview: COPD Viral pneumonia, unspecified 05/03/2006 Overview: Pneumonia documented as of this encounter (statuses as of 04/20/2023) [facility] History of Past illness Narrative* Problem Noted Date Diagnosed Date Resolved Date Chronic pulmonary heart disease 05/03/2006 10/01/2022 Cough 04/01/2006 05/03/2006 Obstructive chronic bronchit is with exacerbation 05/03/2006 Overview: COPD Viral pneumonia, unspecified 05/03/2006 Overview: Pneumonia documented as of this encounter (statuses as of 04/29/2023) [facility] History of Past illness Narrative* Problem Noted Date Diagnosed Date Resolved Date Chronic pulmonary heart disease 05/03/2006 10/01/2022 Cough 04/01/2006 05/03/2006 Obstructive chronic bronchit is with exacerbation 05/03/2006 Overview: COPD Viral pneumonia, unspecified 05/03/2006 Overview: Pneumonia documented as of this encounter (statuses as of 05/04/2023) [facility] History of Past illness Narrative* Problem Noted Date Diagnosed Date Resolved Date Chronic pulmonary heart disease 05/03/2006 10/01/2022 Cough 04/01/2006 05/03/2006 Obstructive chronic bronchit is with exacerbation 05/03/2006 Overview: COPD Viral pneumonia, unspecified 05/03/2006 Overview: Pneumonia documented as of this encounter (statuses as of 05/11/2023) [facility] History of Past illness Narrative* Problem Noted Date Diagnosed Date Resolved Date Chronic pulmonary heart disease 05/03/2006 10/01/2022 Cough 04/01/2006 05/03/2006 Obstructive chronic bronchit is with exacerbation 05/03/2006 Overview: COPD Viral pneumonia, unspecified 05/03/2006 Overview: Pneumonia documented as of this encounter (statuses as of 05/13/2023) [facility] History of Past illness Narrative* Problem Noted Date Diagnosed Date Resolved Date Chronic pulmonary heart disease 05/03/2006 10/01/2022 Cough 04/01/2006 05/03/2006 Obstructive chronic bronchit is with exacerbation 05/03/2006 Overview: COPD Viral pneumonia, unspecified 05/03/2006 Overview: Pneumonia documented as of this encounter (statuses as of 05/26/2023) [facility] History of Past illness Narrative* Problem Noted Date Diagnosed Date Resolved Date Chronic pulmonary heart disease 05/03/2006 10/01/2022 Cough 04/01/2006 05/03/2006 Obstructive chronic bronchit is with exacerbation 05/03/2006 Overview: COPD Viral pneumonia, unspecified 05/03/2006 Overview: Pneumonia documented as of this encounter (statuses as of 06/11/2023) [facility] History of Past illness Narrative* Problem Noted Date Diagnosed Date Resolved Date Chronic pulmonary heart disease 05/03/2006 10/01/2022 Cough 04/01/2006 05/03/2006 Obstructive chronic bronchit is with exacerbation 05/03/2006 Overview: COPD Viral pneumonia, unspecified 05/03/2006 Overview: Pneumonia documented as of this encounter (statuses as of 06/13/2023) [facility] History of Past illness Narrative* Problem Noted Date Diagnosed Date Resolved Date Chronic pulmonary heart disease 05/03/2006 10/01/2022 Cough 04/01/2006 05/03/2006 Obstructive chronic bronchit is with exacerbation 05/03/2006 Overview: COPD Viral pneumonia, unspecified 05/03/2006 Overview: Pneumonia documented as of this encounter (statuses as of 08/07/2023) [facility] History of Past illness Narrative* Problem Noted Date Resolved Date Cough 04/01/2006 05/03/2006 Obstructive chronic bronchitis with exacerbation 05/03/2006 Overview: COPD Viral pneumonia, unspecified Overview: Pneumonia documented as of this encounter (statuses as of 09/29/2021) [facility] History of Past illness Narrative* Problem Noted Date Resolved Date Cough 04/01/2006 05/03/2006 Obstructive chronic bronchitis with exacerbation 05/03/2006 Overview: COPD Viral pneumonia, unspecified Overview: Pneumonia documented as of this encounter (statuses as of 10/09/2021) [facility] History of Past illness Narrative* Problem Noted Date Resolved Date Cough 04/01/2006 05/03/2006 Obstructive chronic bronchitis with exacerbation 05/03/2006 Overview: COPD Viral pneumonia, unspecified Overview: Pneumonia documented as of this encounter (statuses as of 10/10/2021) [facility] History of Past illness Narrative* Problem Noted Date Resolved Date Cough 04/01/2006 05/03/2006 Obstructive chronic bronchitis with exacerbation 05/03/2006 Overview: COPD Viral pneumonia, unspecified Overview: Pneumonia documented as of this encounter (statuses as of 10/10/2021) [facility] History of Past illness Narrative* Problem Noted Date Resolved Date Cough 04/01/2006 05/03/2006 Obstructive chronic bronchitis with exacerbation 05/03/2006 Overview: COPD Viral pneumonia, unspecified Overview: Pneumonia documented as of this encounter (statuses as of 10/16/2021) [facility] History of Past illness Narrative* Problem Noted Date Resolved Date Cough 04/01/2006 05/03/2006 Obstructive chronic bronchitis with exacerbation 05/03/2006 Overview: COPD Viral pneumonia, unspecified Overview: Pneumonia documented as of this encounter (statuses as of 10/24/2021) [facility] History of Past illness Narrative* Problem Noted Date Resolved Date Cough 04/01/2006 05/03/2006 Obstructive chronic bronchitis with exacerbation 05/03/2006 Overview: COPD Viral pneumonia, unspecified Overview: Pneumonia documented as of this encounter (statuses as of 11/03/2021) [facility] History of Past illness Narrative* Problem Noted Date Resolved Date Cough 04/01/2006 05/03/2006 Obstructive chronic bronchitis with exacerbation 05/03/2006 Overview: COPD Viral pneumonia, unspecified Overview: Pneumonia documented as of this encounter (statuses as of 11/06/2021) [facility] History of Past illness Narrative* Problem Noted Date Resolved Date Cough 04/01/2006 05/03/2006 Obstructive chronic bronchitis with exacerbation 05/03/2006 Overview: COPD Viral pneumonia, unspecified Overview: Pneumonia documented as of this encounter (statuses as of 11/20/2021) [facility] History of Past illness Narrative* Problem Noted Date Resolved Date Cough 04/01/2006 05/03/2006 Obstructive chronic bronchitis with exacerbation 05/03/2006 Overview: COPD Viral pneumonia, unspecified Overview: Pneumonia documented as of this encounter (statuses as of 11/24/2021) [facility] History of Past illness Narrative* Problem Noted Date Resolved Date Cough 04/01/2006 05/03/2006 Obstructive chronic bronchitis with exacerbation 05/03/2006 Overview: COPD Viral pneumonia, unspecified Overview: Pneumonia documented as of this encounter (statuses as of 12/06/2021) [facility] History of Past illness Narrative* Problem Noted Date Resolved Date Cough 04/01/2006 05/03/2006 Obstructive chronic bronchitis with exacerbation 05/03/2006 Overview: COPD Viral pneumonia, unspecified Overview: Pneumonia documented as of this encounter (statuses as of 12/06/2021) [facility] History of Past illness Narrative* Problem Noted Date Resolved Date Cough 04/01/2006 05/03/2006 Obstructive chronic bronchitis with exacerbation 05/03/2006 Overview: COPD Viral pneumonia, unspecified Overview: Pneumonia documented as of this encounter (statuses as of 12/23/2021) [place] [id number] History of Past illness Narrative* Problem Noted Date Resolved Date Cough 04/01/2006 05/03/2006 Obstructive chronic bronchitis with exacerbation 05/03/2006 Overview: COPD Viral pneumonia, unspecified Overview: Pneumonia documented as of this encounter (statuses as of 01/30/2022) [facility] History of Past illness Narrative* Problem Noted Date Resolved Date Cough 04/01/2006 05/03/2006 Obstructive chronic bronchitis with exacerbation 05/03/2006 Overview: COPD Viral pneumonia, unspecified Overview: Pneumonia documented as of this encounter (statuses as of 02/12/2022) [place] [id number] History of Past illness Narrative* Problem Noted Date Resolved Date Cough 04/01/2006 05/03/2006 Obstructive chronic bronchitis with exacerbation 05/03/2006 Overview: COPD Viral pneumonia, unspecified Overview: Pneumonia documented as of this encounter (statuses as of 02/19/2022) [facility] History of Past illness Narrative* Problem Noted Date Resolved Date Cough 04/01/2006 05/03/2006 Obstructive chronic bronchitis with exacerbation 05/03/2006 Overview: COPD Viral pneumonia, unspecified Overview: Pneumonia documented as of this encounter (statuses as of 02/20/2022) [facility] History of Past illness Narrative* Problem Noted Date Resolved Date Cough 04/01/2006 05/03/2006 Obstructive chronic bronchitis with exacerbation 05/03/2006 Overview: COPD Viral pneumonia, unspecified Overview: Pneumonia documented as of this encounter (statuses as of 02/23/2022) [address]28-2006 History of Past illness Narrative* Problem Noted Date Resolved Date Cough 04/01/2006 05/03/2006 Obstructive chronic bronchitis with exacerbation 05/03/2006 Overview: COPD Viral pneumonia, unspecified Overview: Pneumonia documented as of this encounter (statuses as of 02/25/2022) [place] [id number] History of Past illness Narrative* Problem Noted Date Resolved Date Cough 04/01/2006 05/03/2006 Obstructive chronic bronchitis with exacerbation 05/03/2006 Overview: COPD Viral pneumonia, unspecified Overview: Pneumonia documented as of this encounter (statuses as of 03/05/2022) [place] [id number] History of Past illness Narrative* Problem Noted Date Resolved Date Cough 04/01/2006 05/03/2006 Obstructive chronic bronchitis with exacerbation 05/03/2006 Overview: COPD Viral pneumonia, unspecified Overview: Pneumonia documented as of this encounter (statuses as of 03/11/2022) [facility] History of Past illness Narrative* Problem Noted Date Resolved Date Cough 04/01/2006 05/03/2006 Obstructive chronic bronchitis with exacerbation 05/03/2006 Overview: COPD Viral pneumonia, unspecified Overview: Pneumonia documented as of this encounter (statuses as of 03/13/2022) [facility] History of Past illness Narrative* Problem Noted Date Resolved Date Cough 04/01/2006 05/03/2006 Obstructive chronic bronchitis with exacerbation 05/03/2006 Overview: COPD Viral pneumonia, unspecified Overview: Pneumonia documented as of this encounter (statuses as of 03/19/2022) [place] [id number] History of Past illness Narrative* Problem Noted Date Resolved Date Cough 04/01/2006 05/03/2006 Obstructive chronic bronchitis with exacerbation 05/03/2006 Overview: COPD Viral pneumonia, unspecified Overview: Pneumonia documented as of this encounter (statuses as of 03/26/2022) [facility] History of Past illness Narrative* Problem Noted Date Resolved Date Cough 04/01/2006 05/03/2006 Obstructive chronic bronchitis with exacerbation 05/03/2006 Overview: COPD Viral pneumonia, unspecified Overview: Pneumonia documented as of this encounter (statuses as of 04/03/2022) [facility] History of Past illness Narrative* Problem Noted Date Resolved Date Cough 04/01/2006 05/03/2006 Obstructive chronic bronchitis with exacerbation 05/03/2006 Overview: COPD Viral pneumonia, unspecified Overview: Pneumonia documented as of this encounter (statuses as of 05/15/2022) [facility] History of Past illness Narrative* Problem Noted Date Resolved Date Cough 04/01/2006 05/03/2006 Obstructive chronic bronchitis with exacerbation 05/03/2006 Overview: COPD Viral pneumonia, unspecified Overview: Pneumonia documented as of this encounter (statuses as of 07/08/2022) [facility] History of Past illness Narrative* Problem Noted Date Resolved Date Cough 04/01/2006 05/03/2006 Obstructive chronic bronchitis with exacerbation 05/03/2006 Overview: COPD Viral pneumonia, unspecified Overview: Pneumonia documented as of this encounter (statuses as of 08/06/2022) [place] [id number] History of Past illness Narrative* Problem Noted Date Resolved Date Cough 04/01/2006 05/03/2006 Obstructive chronic bronchitis with exacerbation 05/03/2006 Overview: COPD Viral pneumonia, unspecified Overview: Pneumonia documented as of this encounter (statuses as of 08/18/2022) [facility] History of Past illness Narrative* Problem Noted Date Resolved Date Cough 04/01/2006 05/03/2006 Obstructive chronic bronchitis with exacerbation 05/03/2006 Overview: COPD Viral pneumonia, unspecified Overview: Pneumonia documented as of this encounter (statuses as of 08/20/2022) [place] [id number] History of Past illness Narrative* Problem Noted Date Resolved Date Cough 04/01/2006 05/03/2006 Obstructive chronic bronchitis with exacerbation 05/03/2006 Overview: COPD Viral pneumonia, unspecified Overview: Pneumonia documented as of this encounter (statuses as of 08/20/2022) [place] [id number] History of Past illness Narrative* Problem Noted Date Resolved Date Cough 04/01/2006 05/03/2006 Obstructive chronic bronchitis with exacerbation 05/03/2006 Overview: COPD Viral pneumonia, unspecified Overview: Pneumonia documented as of this encounter (statuses as of 09/01/2022) [facility] History of Past illness Narrative* Problem Noted Date Resolved Date Cough 04/01/2006 05/03/2006 Obstructive chronic bronchitis with exacerbation 05/03/2006 Overview: COPD Viral pneumonia, unspecified Overview: Pneumonia documented as of this encounter (statuses as of 09/21/2022) [facility] History of Past illness Narrative* Problem Noted Date Resolved Date Cough 04/01/2006 05/03/2006 Obstructive chronic bronchitis with exacerbation 05/03/2006 Overview: COPD Viral pneumonia, unspecified Overview: Pneumonia documented as of this encounter (statuses as of 09/29/2022) [facility] No data available for this section [facility] Evaluation note* Diagnosis GUME (acute kidney injury) (HCC)- Primary Acute kidney failure, unspecified Insomnia, unspecified type Pedal edema Edema Impacted stool in intestine (HCC) Fecal impaction Hypervolemia, unspecified hypervolemia type Congestive heart failure, unspecified HF chronicity, unspecified heart failure type (HCC) Cardiomegaly documented in this encounter [facility]* Diagnosis Insomnia, unspecified type documented [facility] this encounter [facility]* Diagnosis Congestive heart failure, unspecified HF chronicity, unspecified heart failure type (HCC)- Primary Pedal edema Edema Diastolic dysfunction Heart disease, unspecified Chronic obstructive pulmonary disease, unspecified COPD type (HCC) documented [facility]* Diagnosis Procedure not carried out- Primary Procedure not carried out for other reasons [facility] this [facility]* Diagnosis Anxiety- Primary Anxiety state, unspecified Insomnia, unspecified type Essential hypertension Unspecified essential hypertension [facility] Diagnosis Post-operative state- Primary Other postprocedural status SDH (subdural hematoma) Subdural hemorrhage Anemia (Low HGB) Anemia, unspecified Electrolyte disorder (K, Cl, or Na) Electrolyte and fluid disorders not elsewhere classified [facility] Medication management Encounter for long-term (current) use of other medications [facility] Diagnosis Pain at surgical incision- Primary Disturbance of skin sensation [facility] Diagnosis Urinary tract infection without hematuria, site unspecified- Primary Fall, sequela Closed nondisplaced fracture of seventh cervical vertebra, unspecified fracture morphology, sequela Laceration of head without foreign body, unspecified part of head, sequela [facility] Diagnosis Right leg numbness- Primary Disturbance of skin sensation Right leg weakness Other musculoskeletal symptoms referable to limbs Midline low back pain, unspecified chronicity, unspecified whether sciatica present Compression fracture of T12 vertebra, sequela History of subdural hematoma History of stroke Transient ischemic attack (TIA), and cerebral infarction without residual deficits Closed nondisplaced fracture of seventh cervical vertebra with routine healing, unspecified fracture morphology, subsequent encounter [facility] Diagnosis Essential hypertension Unspecified essential hypertension [facility] Hospital discharge follow-up- Primary Other follow-up examination Insomnia, unspecified type Gastrojejunostomy tube status (HCC) Status of other artificial opening of gastrointestinal tract Chronic obstructive pulmonary disease, unspecified COPD type (HCC) Chronic hypercapnic respiratory failure (HCC) Chronic respiratory failure Chronic pulmonary heart disease (HCC) Chronic pulmonary heart disease, unspecified Panlobular emphysema (HCC) Other emphysema Malnutrition of mild degree (HCC) Malnutrition of mild degree Anxiety Anxiety state, unspecified S/P tracheoplasty Other postprocedural status [facility] Diagnosis Insomnia, unspecified type [facility] Diagnosis Panlobular emphysema (HCC)- Primary Other emphysema Chronic obstructive pulmonary disease, unspecified COPD type (HCC) Chronic hypercapnic respiratory failure (HCC) Chronic respiratory failure Anxiety Anxiety state, unspecified Carcinoma in situ of left breast, unspecified type Insomnia, unspecified type Screening mammogram for breast cancer Hemorrhagic stroke (HCC) Intracerebral hemorrhage Mixed hyperlipidemia Sleep apnea, unspecified type documented in this encounter [facility] note* Diagnosis Pain at surgical incision Disturbance of skin sensation documented in this encounter [facility] note* Diagnosis History of recent hospitalization- Primary Personal history of unspecified disease Chronic obstructive pulmonary disease, unspecified COPD type (HCC) Chronic hypercapnic respiratory failure (HCC) Chronic respiratory failure Decompensated heart failure (HCC) RLS (restless legs syndrome) Restless legs syndrome (RLS) Generalized pain documented in this encounter [facility] note* Diagnosis Hemorrhagic stroke (HCC)- Primary Intracerebral hemorrhage Impaired mobility and activities of daily living Other ill-defined conditions documented in this encounter [facility] note* Diagnosis Chronic obstructive pulmonary disease, unspecified COPD type (HCC)- Primary Acute deep vein thrombosis (DVT) of distal vein of right lower extremity (HCC) Acute subdural hematoma (HCC) Subdural hemorrhage Seizure-like activity (HCC) Other convulsions Insomnia, unspecified type documented in this encounter [facility] note* Diagnosis History of recent hospitalization- Primary Personal history of unspecified disease Chronic obstructive pulmonary disease, unspecified COPD type (HCC) Insomnia, unspecified type Anemia, unspecified type Elevated liver enzymes Other nonspecific abnormal serum enzyme levels Medication monitoring encounter Encounter for therapeutic drug monitoring documented in this encounter [facility] note* Diagnosis Insomnia, unspecified type documented in this encounter [facility] note* Diagnosis Insomnia, unspecified type- Primary documented [facility]* Diagnosis Insomnia, unspecified type [facility]* Diagnosis Essential hypertension Unspecified essential hypertension documented in this encounter [facility] note* Diagnosis Insomnia, unspecified type- Primary Anemia, unspecified type Elevated liver enzymes Other nonspecific abnormal serum enzyme levels Mixed hyperlipidemia [facility]* Diagnosis Insomnia, unspecified type documented in this encounter [facility] note* Diagnosis Insomnia, unspecified type documented in this encounter [facility] note* Diagnosis Insomnia, unspecified type [facility]* Diagnosis Insomnia, unspecified type documented in this encounter [facility] note* Diagnosis Subdural hematoma (HCC)- Primary Subdural hemorrhage Status post fall Unspecified fall Occipital scalp laceration, sequela Chronic obstructive pulmonary disease, unspecified COPD type (HCC) Hypotension, unspecified hypotension type documented in this encounter [facility] note* Diagnosis Insomnia, unspecified type documented in this encounter [facility] note* Diagnosis Insomnia, unspecified type- Primary Confusion Unspecified psychosis Subdural hematoma (HCC) Subdural hemorrhage RLS (restless legs syndrome) Restless legs syndrome (RLS) Anxiety Anxiety state, unspecified documented in this encounter [facility] note* Diagnosis Seizure (HCC)- Primary Other convulsions Seizure (HCC) Other convulsions Hypotension, unspecified hypotension type Acute respiratory failure with hypoxia and hypercapnia ([facility]) Cerebrovascular accident (CVA) due to embolism of cerebral artery (HCC) Pain around percutaneous endoscopic gastrostomy (PEG) tube site, initial encounter Acute respiratory failure with hypoxia and hypercapnia ([facility]) documented in this encounter [facility]* Diagnosis Insomnia, unspecified type documented in this encounter [facility] note* Diagnosis 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 Panlobular emphysema (HCC) Other emphysema Seizure-like activity (HCC) Other convulsions Insomnia, unspecified type documented in this encounter [facility] note* Diagnosis Insomnia, unspecified type documented in this encounter [facility] note* Diagnosis Insomnia, unspecified type documented in this encounter [facility] note* Diagnosis Insomnia, unspecified type documented in this encounter [facility] note* Diagnosis Chronic obstructive pulmonary disease, unspecified COPD type (HCC)- Primary 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) Gastrostomy status Malnutrition of mild degree (HCC) Malnutrition of mild degree documented in this encounter [facility] note* Diagnosis Insomnia, unspecified type documented in this encounter [facility] note* Diagnosis Insomnia, unspecified type documented in this encounter [facility] note* Diagnosis 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 Tracheostomy status Anxiety Anxiety state, unspecified Chronic obstructive pulmonary disease, unspecified COPD type (HCC) documented in this encounter [facility] note* Diagnosis 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) [Z93.0]- Primary Tracheostomy status documented in this encounter [facility] note* Diagnosis Falls frequently- Primary Personal history of fall Insomnia, unspecified type Polypharmacy Encounter for long-term (current) use of other medications documented in this encounter [facility] note* Diagnosis Status epilepticus (CMS/HCC) (HCC)- Primary Epileptic grand mal status Status epilepticus (CMS/HCC) (HCC) Epileptic grand mal status Hypotension, unspecified hypotension type Acute respiratory failure with hypoxia and hypercapnia ([facility]) documented in this encounter [facility] note* Diagnosis Insomnia, unspecified type documented in this encounter [facility] note* Diagnosis Hospital discharge follow-up- Primary Other follow-up examination Decompensated heart failure (HCC) Traumatic subdural hemorrhage with loss of consciousness of unspecified duration, initial encounter ([facility]) Malnutrition of mild degree ([facility]) Malnutrition of mild degree Right leg pain Pain in limb documented in this encounter [facility] note* Diagnosis Chronic pain of right lower extremity- Primary Right leg pain Pain in limb Restless legs Restless legs syndrome (RLS) Anxiety Anxiety state, unspecified documented in this encounter [facility] note* Diagnosis Mixed hyperlipidemia documented in this encounter [facility] note* Diagnosis Insomnia, unspecified type documented in this encounter [facility] for referral (narrative)* Outpatient Procedure (Urgent) - Pending Review Specialty Diagnoses / Procedures Referred By Aubree lubin Referred To Contact [facility] [place] Diagnoses Cardiomegaly Procedures ECHO ECHO TTHRC R-T 2D W/WOM-MODE COMPL SPEC&COLR D Maryam Franco MD [address] [place] [address] [facility] [place] [address] Referral ID Status Reason Start Date Expiration Date Visits Requested Visits Authorized [id number] Pending Review Auto-Generat ed Referral 10/08/2021 10/08/2022 1 1 * Outpatient Procedure (Routine) - Pending Review Specialty Diagnoses / Procedures Referred By Aubree lubin Referred To Contact [facility] [place] Diagnoses Cardiomegaly Procedures ECG COMPLETE ECG ROUTINE ECG W/LEAST 12 LDS W/I&R Maryam Franco MD [address] [place] [address] [facility] [address] [place] [address] Referral ID Status Reason Start Date Expiration Date Visits Requested Visits Authorized [id number] Pending Review Auto-Generat ed Referral 10/08/2021 10/08/2022 1 1 [facility] for referral (narrative)* Diagnostic Procedure Only (Routine) - Pending Review Specialty Diagnoses / Procedures Referred By Aubree lubin Referred To Contact [facility] Diagnoses Screening mammogram for breast cancer Procedures GARRETT SCREENING SCREENING MAMMOGRAPHY BI 2-[place] [address] [place] [address] [facility] [address] [place] [address] Referral ID Status Reason Start Date Expiration Date Visits Requested Visits Authorized [id number] Pending Review Auto-Generat ed Referral 10/01/2022 10/31/2023 1 1 [facility] for referral (narrative)* Diagnostic Procedure Only (Routine) - Authorized Specialty Diagnoses / Procedures Referred By Aubree lubin Referred To Contact [facility] Diagnoses Right leg pain Procedures XR HIP GENERAL 3V PELV/AP/LAT RIGHT RADEX HIP UNILATERAL WITH PELVIS 2-3 VIEWS Maryam Franco MD [address] [place] [address] [place] [address] Referral ID Status Reason Start Date Expiration Date Visits Requested Visits Authorized [id number] Authorized Auto-Generat ed Referral 02/17/2024 03/18/2025 1 1 * Diagnostic Procedure Only (Routine) - Authorized Specialty Diagnoses / Procedures Referred By Aubree lubin Referred To Contact XR IMAGING Diagnoses Right leg pain Procedures XR LUMBAR GENERAL 3V AP/LAT/L5-S1 RADEX SPINE LUMBOSACRAL 2/3 VIEWS Maryam Franco MD [address] [place] [address] [place] [address] Referral ID Status Reason Start Date Expiration Date Visits Requested Visits Authorized [id number] Authorized Auto-Generat ed Referral 02/17/2024 03/18/2025 1 1 [facility] Summary Purpose Family History No Family History Records FoundNo Family History Records FoundNo Family History Records FoundNo Family History Records FoundNo Family History Records FoundNo Family History Records FoundNo Family History Records FoundNo Family History Records FoundNo Family History Records Found Advance Directives No Advanced Directives Records FoundDocuments on File Type Date Recorded 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 Advance Directive(s) 08/20/2016 6:35 AM Documents on File Type Date Recorded 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 Advance Directive(s) 08/20/2016 6:35 AM Latest Code Status on File Code Status Date Activated Date Inactivated Comments Full Code 01/09/2022 1:32 AM Latest Code Status on File Code Status Date Activated Date Inactivated Comments DNR-CCA, DNI 08/06/2023 6:33 AM Question Answer Comments DNR Order Discussed With: Patient Latest Code Status on File Code Status Date Activated Date Inactivated Comments DNR-CCA, DNI 08/06/2023 6:33 AM 08/10/2023 10:04 PM Question Answer Comments DNR Order Discussed With: Patient Date Activated Date Inactivated Comments 08/06/2023 6:33 AM 08/10/2023 10:04 PM Question Answer Comments DNR Order Discussed With: Patient Date Activated Date Inactivated Comments 08/06/2023 6:33 AM 08/10/2023 10:04 PM Question Answer Comments DNR Order Discussed With: Patient Latest Code Status on File Code Status Date Activated Date Inactivated Comments Full Code 09/26/2023 3:20 PM 10/12/2023 6:53 PM Code Status History Code Status Date Activated Date Inactivated Comments Full Code 07/25/2022 9:05 PM 08/05/2022 12:21 AM Date Activated Date Inactivated Comments 01/28/2024 11:27 PM 02/13/2024 5:29 PM Date Activated Date Inactivated Comments 09/26/2023 3:20 PM 10/12/2023 6:53 PM Date Activated Date Inactivated Comments 07/25/2022 9:05 PM 08/05/2022 12:21 AM Reason for Referral Specialty Diagnoses / Procedures Referred By Contac t Referred To Contact Pain Management Diagnoses Chronic pain of right lower extremity Procedures CONSULT TO PAIN MGT OFFICE/OUTPATIENT [facility] 60 MINUTES Maryam Franco MD [address] [place] [address] Referral ID Status Reason Start Date Expiration Date Visits Requested Visits Authorized [id number] Authorized PCP Requested Referral 02/23/2024 05/23/2024 1 1 Specialty Diagnoses / Procedures Referred By Contac t Referred To Contact Gerontology / GERIATRICS Diagnoses Falls frequently Polypharmacy Procedures CONSULT TO GERIATRICS OFFICE/OUTPATIENT [facility] 60 MINUTES Joan Johnson APRN.CNP [address] [place] [id number] [address] [address] [address] [place] [phone] Referral ID Status Reason Start Date Expiration Date V isits Requested Visits Authorized [id number] Closed PCP Requested Referral 01/26/2024 01/25/2025 1 1 Specialty Diagnoses / Procedures Referred By Contac t Referred To Contact General Surgery Diagnoses 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) Procedures CONSULT TO GENERAL SURGERY OFFICE/OUTPATIENT [facility] 60 MINUTES Issa Herman MD [address] [place] [address] Referral ID Status Reason Start Date Expiration Date Visits Requested Visits Authorized [id number] Authorized PCP Requested Referral 12/02/2023 12/01/2024 1 1 Specialty Diagnoses / Procedures Referred By Contac t Referred To Contact Ent - Otolaryngology Diagnoses 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) Procedures CONSULT TO ENT Issa Herman MD [address] [place] [address] Referral ID Status Reason Start Date Expiration Date Visits Requested Visits Authorized [id number] Ref Not Required PCP Requested Referral 12/02/2023 12/01/2024 1 1 Specialty Diagnoses / Procedures Referred By Contac t Referred To Contact Diagnoses Pain around percutaneous endoscopic gastrostomy (PEG) tube site, initial encounter Crys Canseco DO [address] [place] [address] Referral ID Status Reason Start Date Expiration Date V isits Requested Visits Authorized [id number] Pending Review 1 1 Specialty Diagnoses / Procedures Referred By Contac t Referred To Contact Diagnoses Insomnia, unspecified type Confusion RLS (restless legs syndrome) Procedures CONSULT TO SLEEP MEDICINE - ADULT OFFICE/OUTPATIENT [facility] MDM 60 MINUTES Joanie Benitez PA-C [address] [place] [address] Referral ID Status Reason Start Date Expiration Date Visits Requested Visits Authorized [id number] Authorized PCP Requested Referral 09/23/2023 09/22/2024 1 1 Specialty Diagnoses / Procedures Referred By Contac t Referred To Contact Diagnoses Insomnia, unspecified type Joan Johnson APRN.AGRICULTURE WORKER [address] [place] [address] Referral ID Status Reason Start Date Expiration Date Visits Re quested Visits Authorized [id number] Denied 1 1 Specialty Diagnoses / Procedures Referred By Contac t Referred To Contact Diagnoses Insomnia, unspecified type Joanie Benitez PA-C [address] [place] [address] Referral ID Status Reason Start Date Expiration Date V isits Requested Visits Authorized [id number] Authorized 02/05/2023 02/05/2023 1 1 Specialty Diagnoses / Procedures Referred By Contac t Referred To Contact Cardiology Diagnoses Decompensated heart failure (HCC) History of recent hospitalization Procedures CONSULT TO CARDIOLOGY OFFICE/OUTPATIENT [facility] 60-74 MINUTES Joan Johnson APRN.AGRICULTURE WORKER [address] [place] [address] Referral ID Status Reason Start Date Expiration Date Visits Requested Visits Authorized [id number] Pending Review PCP Requested Referral 10/16/2022 10/16/2023 1 1 Specialty Diagnoses / Procedures Referred By Contac t Referred To Contact Gastroenterology Diagnoses Gastrojejunostomy tube status (HCC) Procedures CONSULT TO GASTROENTEROLOGY OFFICE/OUTPATIENT [facility] 60-74 MINUTES Maryam Franco MD [address] [place] [address] Referral ID Status Reason Start Date Expiration Date Visits Requested Visits Authorized [id number] Pending Review PCP Requested Referral 08/19/2022 08/19/2023 1 1 Specialty Diagnoses / Procedures Referred By Contac t Referred To Contact CT IMAGING Diagnoses Closed nondisplaced fracture of seventh cervical vertebra with routine healing, unspecified fracture morphology, subsequent encounter Procedures CT CERVICAL SPINE WO IVCON CT CERVICAL SPINE W/O CONTRAST MATERIAL Pushpa Esquivel Jr., MD [address] [facility] [address] [place] [address] Ct Imaging Referral ID Status Reason Start Date Expiration Date Visits Requested Visits Authorized [id number] Pending Review Auto-Generat ed Referral 04/03/2022 05/03/2023 1 1 Specialty Diagnoses / Procedures Referred By Contac t Referred To Contact Neurosurgery Diagnoses Compression fracture of T12 vertebra, sequela History of subdural hematoma Procedures CONSULT TO NEUROSURGERY Pushpa Esquivel Jr., MD [address] [facility] [address] [place] [address] Referral ID Status Reason Start Date Expiration Date Visits Requested Visits Authorized [id number] Ref Not Required PCP Requested Referral 04/03/2022 07/02/2022 3 3 Specialty Diagnoses / Procedures Referred By Contac t Referred To Contact CT IMAGING Diagnoses Right leg numbness Right leg weakness Midline low back pain, unspecified chronicity, unspecified whether sciatica present Compression fracture of T12 vertebra, sequela Procedures CT LUMBAR SPINE WO IVCON CT LUMBAR SPINE W/O CONTRAST MATERIAL Pushpa Esquivel Jr., MD [address] [facility] [address] [place] [address] Ct Imaging Referral ID Status Reason Start Date Expiration Date Visits Requested Visits Authorized [id number] Authorized Auto-Generat ed Referral 04/03/2022 05/03/2023 1 1 Specialty Diagnoses / Procedures Referred By Contac t Referred To Contact CT IMAGING Diagnoses Right leg numbness Right leg weakness Midline low back pain, unspecified chronicity, unspecified whether sciatica present Compression fracture of T12 vertebra, sequela Procedures CT THORACIC SPINE WO IVCON CT THORACIC SPINE W/O CONTRAST MATERIAL Pushpa Esquivel Jr., MD [address] [facility] [address] [place] [address] [address] Imaging Referral ID Status Reason Start Date Expiration Date Visits Requested Visits Authorized [id number] Authorized Auto-Generat ed Referral 04/03/2022 05/03/2023 1 1 Health Concerns Infection Onset Date Last Indicated Resolved Time RSV 07/14/2023 07/14/2023 08/06/2023 2:14 PM EST COVID-19 Rule-Out 08/06/2023 08/06/2023 08/06/2023 12:46 PM EST Additional Source Comments INFORMATION SOURCE (unrecogn ized section and content) DATE CREATED AUTHOR 12/24/2017 [facility] DATE CREATED AUTHOR AUTHOR'S ORGANIZ ATION 12/28/2017 [facility] DATE CREATED AUTHOR AUTHOR'S ORGANIZ ATION 01/09/2022 [facility] DATE CREATED AUTHOR AUTHOR'S ORGANIZ ATION 02/08/2022 [facility] DATE CREATED AUTHOR AUTHOR'S ORGANIZ ATION 08/25/2022 [facility] DATE CREATED AUTHOR AUTHOR'S ORGANIZ ATION 09/03/2023 [facility] DATE CREATED AUTHOR AUTHOR'S ORGANIZ ATION 11/13/2023 [facility]) DATE CREATED AUTHOR AUTHOR'S ORGANIZ ATION 02/28/2024 [facility] DATE CREATED AUTHOR AUTHOR'S ORGANIZ ATION 03/03/2024 [facility] Source Comments (unrecognize d section and content) In the event this informatio n is protected by the Federal Confidentiality of Alcohol and Drug Abuse Patient Records regulations: The Federal rules restrict any use of the information to criminally investigate or prosecute any alcohol or drug abuse patient.[facility] the event this information is protected by the Federal Confidentiality of Alcohol and Drug Abuse Patient Records regulations: The Federal rules restrict any use of the information to criminally investigate or prosecute any alcohol or drug abuse patient.[facility] the event this information is protected by the Federal Confidentiality of Alcohol and Drug Abuse Patient Records regulations: The Federal rules restrict any use of the information to criminally investigate or prosecute any alcohol or drug abuse patient.[facility] the event this information is protected by the Federal Confidentiality of Alcohol and Drug Abuse Patient Records regulations: The Federal rules restrict any use of the information to criminally investigate or prosecute any alcohol or drug abuse patient.[facility] the event this information is protected by the Federal Confidentiality of Alcohol and Drug Abuse Patient Records regulations: The Federal rules restrict any use of the information to criminally investigate or prosecute any alcohol or drug abuse patient.[facility] the event this information is protected by the Federal Confidentiality of Alcohol and Drug Abuse Patient Records regulations: The Federal rules restrict any use of the information to criminally investigate or prosecute any alcohol or drug abuse patient.[facility] the event this information is protected by the Federal Confidentiality of Alcohol and Drug Abuse Patient Records regulations: The Federal rules restrict any use of the information to criminally investigate or prosecute any alcohol or drug abuse patient.[facility] the event this information is protected by the Federal Confidentiality of Alcohol and Drug Abuse Patient Records regulations: The Federal rules restrict any use of the information to criminally investigate or prosecute any alcohol or drug abuse patient.[facility] the event this information is protected by the Federal Confidentiality of Alcohol and Drug Abuse Patient Records regulations: The Federal rules restrict any use of the information to criminally investigate or prosecute any alcohol or drug abuse patient.[facility] the event this information is protected by the Federal Confidentiality of Alcohol and Drug Abuse Patient Records regulations: The Federal rules restrict any use of the information to criminally investigate or prosecute any alcohol or drug abuse patient.[facility] the event this information is protected by the Federal Confidentiality of Alcohol and Drug Abuse Patient Records regulations: The Federal rules restrict any use of the information to criminally investigate or prosecute any alcohol or drug abuse patient.[facility] the event this information is protected by the Federal Confidentiality of Alcohol and Drug Abuse Patient Records regulations: The Federal rules restrict any use of the information to criminally investigate or prosecute any alcohol or drug abuse patient.[facility] the event this information is protected by the Federal Confidentiality of Alcohol and Drug Abuse Patient Records regulations: The Federal rules restrict any use of the information to criminally investigate or prosecute any alcohol or drug abuse patient.[facility] the event this information is protected by the Federal Confidentiality of Alcohol and Drug Abuse Patient Records regulations: The Federal rules restrict any use of the information to criminally investigate or prosecute any alcohol or drug abuse patient.[facility] the event this information is protected by the Federal Confidentiality of Alcohol and Drug Abuse Patient Records regulations: The Federal rules restrict any use of the information to criminally investigate or prosecute any alcohol or drug abuse patient.[facility] the event this information is protected by the Federal Confidentiality of Alcohol and Drug Abuse Patient Records regulations: The Federal rules restrict any use of the information to criminally investigate or prosecute any alcohol or drug abuse patient.[facility] the event this information is protected by the Federal Confidentiality of Alcohol and Drug Abuse Patient Records regulations: The Federal rules restrict any use of the information to criminally investigate or prosecute any alcohol or drug abuse patient.[facility] the event this information is protected by the Federal Confidentiality of Alcohol and Drug Abuse Patient Records regulations: The Federal rules restrict any use of the information to criminally investigate or prosecute any alcohol or drug abuse patient.[facility] the event this information is protected by the Federal Confidentiality of Alcohol and Drug Abuse Patient Records regulations: The Federal rules restrict any use of the information to criminally investigate or prosecute any alcohol or drug abuse patient.[facility]In the event this information is protected by the Federal Confidentiality of Alcohol and Drug Abuse Patient Records regulations: The Federal rules restrict any use of the information to criminally investigate or prosecute any alcohol or drug abuse patient.[facility]In the event this information is protected by the Federal Confidentiality of Alcohol and Drug Abuse Patient Records regulations: The Federal rules restrict any use of the information to criminally investigate or prosecute any alcohol or drug abuse patient.[facility] the event this information is protected by the Federal Confidentiality of Alcohol and Drug Abuse Patient Records regulations: The Federal rules restrict any use of the information to criminally investigate or prosecute any alcohol or drug abuse patient.[facility] the event this information is protected by the Federal Confidentiality of Alcohol and Drug Abuse Patient Records regulations: The Federal rules restrict any use of the information to criminally investigate or prosecute any alcohol or drug abuse patient.[facility] the event this information is protected by the Federal Confidentiality of Alcohol and Drug Abuse Patient Records regulations: The Federal rules restrict any use of the information to criminally investigate or prosecute any alcohol or drug abuse patient.[facility] the event this information is protected by the Federal Confidentiality of Alcohol and Drug Abuse Patient Records regulations: The Federal rules restrict any use of the information to criminally investigate or prosecute any alcohol or drug abuse patient.[facility] the event this information is protected by the Federal Confidentiality of Alcohol and Drug Abuse Patient Records regulations: The Federal rules restrict any use of the information to criminally investigate or prosecute any alcohol or drug abuse patient.[facility] the event this information is protected by the Federal Confidentiality of Alcohol and Drug Abuse Patient Records regulations: The Federal rules restrict any use of the information to criminally investigate or prosecute any alcohol or drug abuse patient.[facility] the event this information is protected by the Federal Confidentiality of Alcohol and Drug Abuse Patient Records regulations: The Federal rules restrict any use of the information to criminally investigate or prosecute any alcohol or drug abuse patient.[facility] the event this information is protected by the Federal Confidentiality of Alcohol and Drug Abuse Patient Records regulations: The Federal rules restrict any use of the information to criminally investigate or prosecute any alcohol or drug abuse patient.[facility] the event this information is protected by the Federal Confidentiality of Alcohol and Drug Abuse Patient Records regulations: The Federal rules restrict any use of the information to criminally investigate or prosecute any alcohol or drug abuse patient.[facility] the event this information is protected by the Federal Confidentiality of Alcohol and Drug Abuse Patient Records regulations: The Federal rules restrict any use of the information to criminally investigate or prosecute any alcohol or drug abuse patient.[facility] HospitalIn the event this information is protected by the Federal Confidentiality of Alcohol and Drug Abuse Patient Records regulations: The Federal rules restrict any use of the information to criminally investigate or prosecute any alcohol or drug abuse patient.[facility]In the event this information is protected by the Federal Confidentiality of Alcohol and Drug Abuse Patient Records regulations: The Federal rules restrict any use of the information to criminally investigate or prosecute any alcohol or drug abuse patient.[facility]In the event this information is protected by the Federal Confidentiality of Alcohol and Drug Abuse Patient Records regulations: The Federal rules restrict any use of the information to criminally investigate or prosecute any alcohol or drug abuse patient.[facility]In the event this information is protected by the Federal Confidentiality of Alcohol and Drug Abuse Patient Records regulations: The Federal rules restrict any use of the information to criminally investigate or prosecute any alcohol or drug abuse patient.[facility]In the event this information is protected by the Federal Confidentiality of Alcohol and Drug Abuse Patient Records regulations: The Federal rules restrict any use of the information to criminally investigate or prosecute any alcohol or drug abuse patient.[facility]In the event this information is protected by the Federal Confidentiality of Alcohol and Drug Abuse Patient Records regulations: The Federal rules restrict any use of the information to criminally investigate or prosecute any alcohol or drug abuse patient.[facility]In the event this information is protected by the Federal Confidentiality of Alcohol and Drug Abuse Patient Records regulations: The Federal rules restrict any use of the information to criminally investigate or prosecute any alcohol or drug abuse patient.[facility]In the event this information is protected by the Federal Confidentiality of Alcohol and Drug Abuse Patient Records regulations: The Federal rules restrict any use of the information to criminally investigate or prosecute any alcohol or drug abuse patient.[facility]In the event this information is protected by the Federal Confidentiality of Alcohol and Drug Abuse Patient Records regulations: The Federal rules restrict any use of the information to criminally investigate or prosecute any alcohol or drug abuse patient.[facility]In the event this information is protected by the Federal Confidentiality of Alcohol and Drug Abuse Patient Records regulations: The Federal rules restrict any use of the information to criminally investigate or prosecute any alcohol or drug abuse patient.[facility]In the event this information is protected by the Federal Confidentiality of Alcohol and Drug Abuse Patient Records regulations: The Federal rules restrict any use of the information to criminally investigate or prosecute any alcohol or drug abuse patient.[facility]In the event this information is protected by the Federal Confidentiality of Alcohol and Drug Abuse Patient Records regulations: The Federal rules restrict any use of the information to criminally investigate or prosecute any alcohol or drug abuse patient.[facility]In the event this information is protected by the Federal Confidentiality of Alcohol and Drug Abuse Patient Records regulations: The Federal rules restrict any use of the information to criminally investigate or prosecute any alcohol or drug abuse patient.[facility]In the event this information is protected by the Federal Confidentiality of Alcohol and Drug Abuse Patient Records regulations: The Federal rules restrict any use of the information to criminally investigate or prosecute any alcohol or drug abuse patient.[facility]In the event this information is protected by the Federal Confidentiality of Alcohol and Drug Abuse Patient Records regulations: The Federal rules restrict any use of the information to criminally investigate or prosecute any alcohol or drug abuse patient.[facility]In the event this information is protected by the Federal Confidentiality of Alcohol and Drug Abuse Patient Records regulations: The Federal rules restrict any use of the information to criminally investigate or prosecute any alcohol or drug abuse patient.[facility]In the event this information is protected by the Federal Confidentiality of Alcohol and Drug Abuse Patient Records regulations: The Federal rules restrict any use of the information to criminally investigate or prosecute any alcohol or drug abuse patient.[facility]In the event this information is protected by the Federal Confidentiality of Alcohol and Drug Abuse Patient Records regulations: The Federal rules restrict any use of the information to criminally investigate or prosecute any alcohol or drug abuse patient.[facility]In the event this information is protected by the Federal Confidentiality of Alcohol and Drug Abuse Patient Records regulations: The Federal rules restrict any use of the information to criminally investigate or prosecute any alcohol or drug abuse patient.[facility]In the event this information is protected by the Federal Confidentiality of Alcohol and Drug Abuse Patient Records regulations: The Federal rules restrict any use of the information to criminally investigate or prosecute any alcohol or drug abuse patient.[facility]In the event this information is protected by the Federal Confidentiality of Alcohol and Drug Abuse Patient Records regulations: The Federal rules restrict any use of the information to criminally investigate or prosecute any alcohol or drug abuse patient.[facility]In the event this information is protected by the Federal Confidentiality of Alcohol and Drug Abuse Patient Records regulations: The Federal rules restrict any use of the information to criminally investigate or prosecute any alcohol or drug abuse patient.[facility]In the event this information is protected by the Federal Confidentiality of Alcohol and Drug Abuse Patient Records regulations: The Federal rules restrict any use of the information to criminally investigate or prosecute any alcohol or drug abuse patient.[facility]In the event this information is protected by the Federal Confidentiality of Alcohol and Drug Abuse Patient Records regulations: The Federal rules restrict any use of the information to criminally investigate or prosecute any alcohol or drug abuse patient.[facility]In the event this information is protected by the Federal Confidentiality of Alcohol and Drug Abuse Patient Records regulations: The Federal rules restrict any use of the information to criminally investigate or prosecute any alcohol or drug abuse patient.[facility]In the event this information is protected by the Federal Confidentiality of Alcohol and Drug Abuse Patient Records regulations: The Federal rules restrict any use of the information to criminally investigate or prosecute any alcohol or drug abuse patient.[facility]In the event this information is protected by the Federal Confidentiality of Alcohol and Drug Abuse Patient Records regulations: The Federal rules restrict any use of the information to criminally investigate or prosecute any alcohol or drug abuse patient.[facility]In the event this information is protected by the Federal Confidentiality of Alcohol and Drug Abuse Patient Records regulations: The Federal rules restrict any use of the information to criminally investigate or prosecute any alcohol or drug abuse patient.[facility]In the event this information is protected by the Federal Confidentiality of Alcohol and Drug Abuse Patient Records regulations: The Federal rules restrict any use of the information to criminally investigate or prosecute any alcohol or drug abuse patient.[facility]In the event this information is protected by the Federal Confidentiality of Alcohol and Drug Abuse Patient Records regulations: The Federal rules restrict any use of the information to criminally investigate or prosecute any alcohol or drug abuse patient.[facility]In the event this information is protected by the Federal Confidentiality of Alcohol and Drug Abuse Patient Records regulations: The Federal rules restrict any use of the information to criminally investigate or prosecute any alcohol or drug abuse patient.[facility]In the event this information is protected by the Federal Confidentiality of Alcohol and Drug Abuse Patient Records regulations: The Federal rules restrict any use of the information to criminally investigate or prosecute any alcohol or drug abuse patient.[facility]In the event this information is protected by the Federal Confidentiality of Alcohol and Drug Abuse Patient Records regulations: The Federal rules restrict any use of the information to criminally investigate or prosecute any alcohol or drug abuse patient.[facility]In the event this information is protected by the Federal Confidentiality of Alcohol and Drug Abuse Patient Records regulations: The Federal rules restrict any use of the information to criminally investigate or prosecute any alcohol or drug abuse patient.[facility]In the event this information is protected by the Federal Confidentiality of Alcohol and Drug Abuse Patient Records regulations: The Federal rules restrict any use of the information to criminally investigate or prosecute any alcohol or drug abuse patient.[facility]In the event this information is protected by the Federal Confidentiality of Alcohol and Drug Abuse Patient Records regulations: The Federal rules restrict any use of the information to criminally investigate or prosecute any alcohol or drug abuse patient.[facility]In the event this information is protected by the Federal Confidentiality of Alcohol and Drug Abuse Patient Records regulations: The Federal rules restrict any use of the information to criminally investigate or prosecute any alcohol or drug abuse patient.[facility]In the event this information is protected by the Federal Confidentiality of Alcohol and Drug Abuse Patient Records regulations: The Federal rules restrict any use of the information to criminally investigate or prosecute any alcohol or drug abuse patient.[facility]In the event this information is protected by the Federal Confidentiality of Alcohol and Drug Abuse Patient Records regulations: The Federal rules restrict any use of the information to criminally investigate or prosecute any alcohol or drug abuse patient.[facility]In the event this information is protected by the Federal Confidentiality of Alcohol and Drug Abuse Patient Records regulations: The Federal rules restrict any use of the information to criminally investigate or prosecute any alcohol or drug abuse patient.[facility]In the event this information is protected by the Federal Confidentiality of Alcohol and Drug Abuse Patient Records regulations: The Federal rules restrict any use of the information to criminally investigate or prosecute any alcohol or drug abuse patient.[facility]In the event this information is protected by the Federal Confidentiality of Alcohol and Drug Abuse Patient Records regulations: The Federal rules restrict any use of the information to criminally investigate or prosecute any alcohol or drug abuse patient.[facility]In the event this information is protected by the Federal Confidentiality of Alcohol and Drug Abuse Patient Records regulations: The Federal rules restrict any use of the information to criminally investigate or prosecute any alcohol or drug abuse patient.[facility]In the event this information is protected by the Federal Confidentiality of Alcohol and Drug Abuse Patient Records regulations: The Federal rules restrict any use of the information to criminally investigate or prosecute any alcohol or drug abuse patient.[facility]In the event this information is protected by the Federal Confidentiality of Alcohol and Drug Abuse Patient Records regulations: The Federal rules restrict any use of the information to criminally investigate or prosecute any alcohol or drug abuse patient.[facility]In the event this information is protected by the Federal Confidentiality of Alcohol and Drug Abuse Patient Records regulations: The Federal rules restrict any use of the information to criminally investigate or prosecute any alcohol or drug abuse patient.[facility]In the event this information is protected by the Federal Confidentiality of Alcohol and Drug Abuse Patient Records regulations: The Federal rules restrict any use of the information to criminally investigate or prosecute any alcohol or drug abuse patient.[facility]In the event this information is protected by the Federal Confidentiality of Alcohol and Drug Abuse Patient Records regulations: The Federal rules restrict any use of the information to criminally investigate or prosecute any alcohol or drug abuse patient.[facility]In the event this information is protected by the Federal Confidentiality of Alcohol and Drug Abuse Patient Records regulations: The Federal rules restrict any use of the information to criminally investigate or prosecute any alcohol or drug abuse patient.[facility]In the event this information is protected by the Federal Confidentiality of Alcohol and Drug Abuse Patient Records regulations: The Federal rules restrict any use of the information to criminally investigate or prosecute any alcohol or drug abuse patient.[facility]In the event this information is protected by the Federal Confidentiality of Alcohol and Drug Abuse Patient Records regulations: The Federal rules restrict any use of the information to criminally investigate or prosecute any alcohol or drug abuse patient.[facility]In the event this information is protected by the Federal Confidentiality of Alcohol and Drug Abuse Patient Records regulations: The Federal rules restrict any use of the information to criminally investigate or prosecute any alcohol or drug abuse patient.[facility]In the event this information is protected by the Federal Confidentiality of Alcohol and Drug Abuse Patient Records regulations: The Federal rules restrict any use of the information to criminally investigate or prosecute any alcohol or drug abuse patient.[facility]In the event this information is protected by the Federal Confidentiality of Alcohol and Drug Abuse Patient Records regulations: The Federal rules restrict any use of the information to criminally investigate or prosecute any alcohol or drug abuse patient.[facility]In the event this information is protected by the Federal Confidentiality of Alcohol and Drug Abuse Patient Records regulations: The Federal rules restrict any use of the information to criminally investigate or prosecute any alcohol or drug abuse patient.[facility]In the event this information is protected by the Federal Confidentiality of Alcohol and Drug Abuse Patient Records regulations: The Federal rules restrict any use of the information to criminally investigate or prosecute any alcohol or drug abuse patient.[facility]In the event this information is protected by the Federal Confidentiality of Alcohol and Drug Abuse Patient Records regulations: The Federal rules restrict any use of the information to criminally investigate or prosecute any alcohol or drug abuse patient.[facility]In the event this information is protected by the Federal Confidentiality of Alcohol and Drug Abuse Patient Records regulations: The Federal rules restrict any use of the information to criminally investigate or prosecute any alcohol or drug abuse patient.[facility]In the event this information is protected by the Federal Confidentiality of Alcohol and Drug Abuse Patient Records regulations: The Federal rules restrict any use of the information to criminally investigate or prosecute any alcohol or drug abuse patient.[facility]In the event this information is protected by the Federal Confidentiality of Alcohol and Drug Abuse Patient Records regulations: The Federal rules restrict any use of the information to criminally investigate or prosecute any alcohol or drug abuse patient.[facility]In the event this information is protected by the Federal Confidentiality of Alcohol and Drug Abuse Patient Records regulations: The Federal rules restrict any use of the information to criminally investigate or prosecute any alcohol or drug abuse patient.[facility]In the event this information is protected by the Federal Confidentiality of Alcohol and Drug Abuse Patient Records regulations: The Federal rules restrict any use of the information to criminally investigate or prosecute any alcohol or drug abuse patient.[facility]In the event this information is protected by the Federal Confidentiality of Alcohol and Drug Abuse Patient Records regulations: The Federal rules restrict any use of the information to criminally investigate or prosecute any alcohol or drug abuse patient.[facility]In the event this information is protected by the Federal Confidentiality of Alcohol and Drug Abuse Patient Records regulations: The Federal rules restrict any use of the information to criminally investigate or prosecute any alcohol or drug abuse patient.[facility]In the event this information is protected by the Federal Confidentiality of Alcohol and Drug Abuse Patient Records regulations: The Federal rules restrict any use of the information to criminally investigate or prosecute any alcohol or drug abuse patient.[facility]In the event this information is protected by the Federal Confidentiality of Alcohol and Drug Abuse Patient Records regulations: The Federal rules restrict any use of the information to criminally investigate or prosecute any alcohol or drug abuse patient.[facility]In the event this information is protected by the Federal Confidentiality of Alcohol and Drug Abuse Patient Records regulations: The Federal rules restrict any use of the information to criminally investigate or prosecute any alcohol or drug abuse patient.[facility]In the event this information is protected by the Federal Confidentiality of Alcohol and Drug Abuse Patient Records regulations: The Federal rules restrict any use of the information to criminally investigate or prosecute any alcohol or drug abuse patient.[facility]In the event this information is protected by the Federal Confidentiality of Alcohol and Drug Abuse Patient Records regulations: The Federal rules restrict any use of the information to criminally investigate or prosecute any alcohol or drug abuse patient.[facility]In the event this information is protected by the Federal Confidentiality of Alcohol and Drug Abuse Patient Records regulations: The Federal rules restrict any use of the information to criminally investigate or prosecute any alcohol or drug abuse patient.[facility]In the event this information is protected by the Federal Confidentiality of Alcohol and Drug Abuse Patient Records regulations: The Federal rules restrict any use of the information to criminally investigate or prosecute any alcohol or drug abuse patient.[facility]In the event this information is protected by the Federal Confidentiality of Alcohol and Drug Abuse Patient Records regulations: The Federal rules restrict any use of the information to criminally investigate or prosecute any alcohol or drug abuse patient.[facility]In the event this information is protected by the Federal Confidentiality of Alcohol and Drug Abuse Patient Records regulations: The Federal rules restrict any use of the information to criminally investigate or prosecute any alcohol or drug abuse patient.[facility]In the event this information is protected by the Federal Confidentiality of Alcohol and Drug Abuse Patient Records regulations: The Federal rules restrict any use of the information to criminally investigate or prosecute any alcohol or drug abuse patient.[facility]In the event this information is protected by the Federal Confidentiality of Alcohol and Drug Abuse Patient Records regulations: The Federal rules restrict any use of the information to criminally investigate or prosecute any alcohol or drug abuse patient.[facility]In the event this information is protected by the Federal Confidentiality of Alcohol and Drug Abuse Patient Records regulations: The Federal rules restrict any use of the information to criminally investigate or prosecute any alcohol or drug abuse patient.[facility]In the event this information is protected by the Federal Confidentiality of Alcohol and Drug Abuse Patient Records regulations: The Federal rules restrict any use of the information to criminally investigate or prosecute any alcohol or drug abuse patient.[facility]In the event this information is protected by the Federal Confidentiality of Alcohol and Drug Abuse Patient Records regulations: The Federal rules restrict any use of the information to criminally investigate or prosecute any alcohol or drug abuse patient.[facility]In the event this information is protected by the Federal Confidentiality of Alcohol and Drug Abuse Patient Records regulations: The Federal rules restrict any use of the information to criminally investigate or prosecute any alcohol or drug abuse patient.[facility]In the event this information is protected by the Federal Confidentiality of Alcohol and Drug Abuse Patient Records regulations: The Federal rules restrict any use of the information to criminally investigate or prosecute any alcohol or drug abuse patient.[facility] the event this information is protected by the Federal Confidentiality of Alcohol and Drug Abuse Patient Records regulations: The Federal rules restrict any use of the information to criminally investigate or prosecute any alcohol or drug abuse patient.[facility] the event this information is protected by the Federal Confidentiality of Alcohol and Drug Abuse Patient Records regulations: The Federal rules restrict any use of the information to criminally investigate or prosecute any alcohol or drug abuse patient.[facility] the event this information is protected by the Federal Confidentiality of Alcohol and Drug Abuse Patient Records regulations: The Federal rules restrict any use of the information to criminally investigate or prosecute any alcohol or drug abuse patient.[facility] the event this information is protected by the Federal Confidentiality of Alcohol and Drug Abuse Patient Records regulations: The Federal rules restrict any use of the information to criminally investigate or prosecute any alcohol or drug abuse patient.[facility] the event this information is protected by the Federal Confidentiality of Alcohol and Drug Abuse Patient Records regulations: The Federal rules restrict any use of the information to criminally investigate or prosecute any alcohol or drug abuse patient.[facility] Reason for Visit (unrecogniz ed section and content) Reason Comments Home Health Orders Reason Comments Hospital Follow Up Edema bilateral legs Reason Onset Date Comments Refill Request 10/10/2021 Reason Comments Appointment Reason Onset Date Comments Refill Request 10/23/2021 Reason Comments Established Patient follow up- edema in lower legs and ECHO Reason Comments Results Reason Comments ECHO denied and cancelled Reason Onset Date Comments Refill Request 11/22/2021 Reason Comments Medication Problem Medication Request Reason Comments Established Patient follow up-anxiety Reason Comments Fall Specialty Diagnoses / Procedures Referred By Aubree t Referred To Contact Diagnoses LEVEL A HEMORRHAGIC STROKE Veronica Velez MD [address] [place] [address] [facility] [address] [place] [address] Referral ID Status Reason Start Date Expiration Date Visits Re quested Visits Authorized [id number] 1 1 Reason Onset Date Comments Nurse Triage Call 12/29/2021 congestion; co ughing, wheezing; started on 12/28 Reason Comments Patient Question Reason Comments Referral Request Reason Comments FYI-ST plan of care Reason Comments [facility]/medication request/verbal o rders Reason Comments Home Health Point of Care Results Reason Comments Patient Update Reason Comments Discharge from Reason Comments ST missed visit this week with the patie nt Reason Comments Recheck [facility] ER follow up, ab dominal pain Reason Comments New Patient Consult for numbness to right anterior thigh since Feb, Specialty Diagnoses / Procedures Referred By Aubree t Referred To Contact [facility] Diagnoses Numbness of anterior thigh Anemia, unspecified type Procedures CONSULT TO NEUROLOGY OFFICE/OUTPATIENT NEW HIGH MDM 60-74 MINUTES Maryam Franco MD [address] [place] [address] [facility] [address] [place] [address] Referral ID Status Reason Start Date Expiration Date Visits Requested Visits Authorized [id number] Pending Review PCP Requested Referral 03/03/2022 03/03/2023 1 1 Reason Onset Date Comments Refill Request 05/15/2022 Reason Comments Appointment Needs rescheduled Reason Onset Date Comments Refill Request 08/18/2022 Reason Comments Hospital F/U [facility] 06/29/23 then wa s transferred to [facility] and then [facility] for about 2 weeks Tube Feeding Assessment needs to come ou t Refill Request Reason Comments Release Of Medical Records Reason Comments Insurance Authorization Reason Onset Date Comments Refill Request 09/21/2022 Reason Comments Medication Problem Reason Comments Recheck Ingrown Toenail Bilateral big toe, r ight leg worse Reason Comments home health calling Reason Comments home health asking for verbal orders Reason Comments Medication Request Reason Comments Recheck Hosp follow up, CHF, Pneumonia, COPD Reason Comments [facility] HH PT POC Reason Onset Date Comments Refill Request 10/19/2022 Reason Comments Request Medication List Reason Comments HHC ST Update Reason Comments Recheck 2 week Reason Comments Speech Therapy Forms Reason Comments Medication Update Reason Comments Residential Plan of Care Reason Comments Recheck [facility] Hosp follow up Reason Onset Date Comments Refill Request 10/24/2022 Reason Onset Date Comments Refill Request 01/06/2023 Reason Comments Refill Request Reason Comments Follow Up wanting to get refil ls of Ambien Reason Onset Date Comments Refill Request 02/15/2023 Reason Onset Date Comments Refill Request 03/01/2023 Reason Onset Date Comments Refill Request 03/04/2023 Reason Comments Recheck Medication follow up Reason Onset Date Comments Refill Request 04/07/2023 Reason Onset Date Comments Refill Request 04/26/2023 Reason Onset Date Comments FYI-No Action Needed 05/10/2023 Reason Onset Date Comments Refill Request 05/05/2023 Refill Request 05/25/2023 Reason Onset Date Comments Refill Request 06/11/2023 Reason Onset Date Comments Refill Request 08/06/2023 Reason Onset Date Comments Transition Of Care 08/11/2023 TCM Initial o utreach discharge 08/10/23 Reason Comments ER F/U [facility] 2..24 ; fall Reason Onset Date Comments Refill Request 08/19/2023 Reason Onset Date Comments Refill Request 09/13/2023 Reason Onset Date Comments Refill Request 09/21/2023 Missed Appointment 09/21/2023 Reason Comments Follow Up Recent fall with sub dural hematoma Reason Onset Date Comments Refill Request 09/27/2023 Specialty Diagnoses / Procedures Referred By Contjuan manuel t Referred To Contact Diagnoses seizures, hypercapnic Procedures .. Charlene Henderson MD [address] [place] [address]. [address] [place] [address] [address] [place] [address] Referral ID Status Reason Start Date Expiration Date Visits Re quested Visits Authorized [id number] 1 1 Reason Onset Date Comments Refill Request 09/29/2023 Reason Onset Date Comments Refill Request 11/02/2023 Reason Onset Date Comments Population Health Navigation Outreach 11/23/2023 [facility] AWV/HCC and care gaps Reason Onset Date Comments requesting medication that is 11/26/2023 Reason Comments Recheck [facility] discharge, trach and GI tube, want them removed Reason Comments Home Health Point of Care Results Medication Problem Reason Onset Date Comments Refill Request 11/26/2023 Reason Onset Date Comments ACM DONOVAN RN 12/10/2023 ER vs [place] on 12/06/23 Reason Onset Date Comments Refill Request 12/09/2023 Reason Onset Date Comments Refill Request 12/17/2023 Reason Comments Orders Reason Comments Consult Consultation for rem oval of gastrostomy tube. 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) Procedures CONSULT TO GENERAL SURGERY OFFICE/OUTPATIENT [facility] 60 MINUTES Issa Herman MD [address] [place] [address] Referral ID Status Reason Start Date Expiration Date V isits Requested Visits Authorized [id number] Closed PCP Requested Referral 12/02/2023 12/01/2024 1 1 Reason Onset Date Comments Refill Request 12/24/2023 Reason Comments Switch rx to different pharmacy Reason Onset Date Comments Refill Request 12/29/2023 Reason Comments 4 week follow-up Reason Comments [facility] Reason Onset Date Comments Refill Request 01/19/2024 Reason Onset Date Comments Population [facility] Navigation Outreach 01/24/2024 Arlet Workar[facility] [place] [facility] Reason Onset Date Comments Refill Request 01/25/2024 Reason Comments [facility] nurse calling to set up home heal Reason Comments Seizures Pt sent from [facility] for evaluation of seizures. Per transport, pt had 2-3 seizures prior to arriving at [facility] & was given a total of 1 mg of ativan and got loaded with keppra. Per EMS, pt has also been having trouble with hypoxia and was 85% on her home 3L. Pt arrives 99% on 6L. Pt does have a capped trach. AAOx2 upon triage, which per squad was baseline at [facility] Specialty Diagnoses / Procedures Referred By Aubree t Referred To Contact Diagnoses Status epilepticus (CMS/HCC) (HCC) seizures Procedures .. Alayna Gaxiola MD [address] [address] [address] [place] [address] Referral ID Status Reason Start Date Expiration Date Visits Re quested Visits Authorized [id number] 1 1 Reason Onset Date Comments Refill Request 02/15/2024 Reason Comments [facility] Reason Comments Cough X1 wk Reason Onset Date Comments Refill Request 02/28/2024 Reason Comments Mental Status Changes Care Teams (unrecognized sec tion and content) Business Strategy Manager Relationship Specialty Start Date End Date Maryam Franco MD [address] [place] [address] PCP - General Internal Medicine 12/09/20 Business Strategy Manager Relationship Specialty Start Date End Date Maryam Franco MD [address] [place] [address] PCP - General Internal Medicine 12/09/20 Business Strategy Manager Relationship Specialty Start Date End Date Maryam Franco MD [address] [place] [address] PCP - General Internal Medicine 12/09/20 Business Strategy Manager Relationship Specialty Start Date End Date Maryam Franco MD [address] [place] [address] PCP - General Internal Medicine 12/09/20 Business Strategy Manager Relationship Specialty Start Date End Date Maryam Franco MD [address] [place] [address] PCP - General Internal Medicine 12/09/20 Business Strategy Manager Relationship Specialty Start Date End Date Maryam Franco MD [address] [facility] [place] [address] PCP - General Internal Medicine 12/09/20 Business Strategy Manager Relationship Specialty Start Date End Date Maryam Franco MD [address] [facility] [place] [address] PCP - General Internal Medicine 12/09/20 Business Strategy Manager Relationship Specialty Start Date End Date Maryam Franco MD [address] [facility] [place] [address] PCP - General Internal Medicine 12/09/20 Business Strategy Manager Relationship Specialty Start Date End Date Maryam Franco MD [address] [place] [address] PCP - General Internal Medicine 06/15/21 Business Strategy Manager Relationship Specialty Start Date End Date Maryam Franco MD [address] [facility] [place] [address] PCP - General Internal Medicine 12/09/20 Business Strategy Manager Relationship Specialty Start Date End Date Maryam Franco MD [address] [facility] [place] [address] PCP - General Internal Medicine 12/09/20 Business Strategy Manager Relationship Specialty Start Date End Date Maryam Franco MD [address] [facility] [place] [place] [address] PCP - General Internal Medicine 12/09/20 Business Strategy Manager Relationship Specialty Start Date End Date Maryam Franco MD [address] [facility] [place] [address] PCP - General Internal Medicine 12/09/20 Business Strategy Manager Relationship Specialty Start Date End Date Maryam Franco MD [address] [facility] [place] [address] PCP - General Internal Medicine 12/09/20 Business Strategy Manager Relationship Specialty Start Date End Date Maryam Franco MD [address] [facility] [place] [address] PCP - General Internal Medicine 12/09/20 Business Strategy Manager Relationship Specialty Start Date End Date Maryam Franco MD [address] [facility] [place] [address] PCP - General Internal Medicine 12/09/20 Business Strategy Manager Relationship Specialty Start Date End Date Maryam Franco MD [address] [facility] [place] [address] PCP - General Internal Medicine 12/09/20 Business Strategy Manager Relationship Specialty Start Date End Date Maryam Franco MD [address] [facility] [place] [address] PCP - General Internal Medicine 12/09/20 Business Strategy Manager Relationship Specialty Start Date End Date Maryam Franco MD [address] [facility] [place] [address] PCP - General Internal Medicine 12/09/20 Business Strategy Manager Relationship Specialty Start Date End Date Maryam Franco MD [address] [facility] [place] [address] PCP - General Internal Medicine 12/09/20 Business Strategy Manager Relationship Specialty Start Date End Date Maryam Franco MD [address] [facility] [place] [address] PCP - General Internal Medicine 12/09/20 Business Strategy Manager Relationship Specialty Start Date End Date Maryam Franco MD [address] [facility] [place] [address] PCP - General Internal Medicine 12/09/20 Business Strategy Manager Relationship Specialty Start Date End Date Maryam Franco MD [address] [facility] [place] [address] PCP - General Internal Medicine 12/09/20 Business Strategy Manager Relationship Specialty Start Date End Date Maryam Franco MD [address] [facility] [place] [address] PCP - General Internal Medicine 12/09/20 Business Strategy Manager Relationship Specialty Start Date End Date Maryam Franco MD [address] [facility] [place] [address] PCP - General Internal Medicine 12/09/20 Business Strategy Manager Relationship Specialty Start Date End Date Maryam Franco MD [address] [facility] [place] [address] PCP - General Internal Medicine 12/09/20 Business Strategy Manager Relationship Specialty Start Date End Date Maryam Franco MD [address] [facility] [place] [address] PCP - General Internal Medicine 12/09/20 Business Strategy Manager Relationship Specialty Start Date End Date Maryam Franco MD [address] [facility] [place] [place] [address] PCP - General Internal Medicine 12/09/20 Business Strategy Manager Relationship Specialty Start Date End Date Maryam Franco MD [address] [facility] [place] [place] [address] PCP - General Internal Medicine 12/09/20 Business Strategy Manager Relationship Specialty Start Date End Date Maryam Franco MD [address] [facility] [place] [address] PCP - General Internal Medicine 12/09/20 Business Strategy Manager Relationship Specialty Start Date End Date Maryam Franco MD [address] [facility] [place] [address] PCP - General Internal Medicine 12/09/20 Business Strategy Manager Relationship Specialty Start Date End Date Maryam Franco MD [address] [facility] [place] [place] [address] PCP - General Internal Medicine 12/09/20 Business Strategy Manager Relationship Specialty Start Date End Date Maryam Franco MD [address] [facility] [place] [place] [address] PCP - General Internal Medicine 12/09/20 Business Strategy Manager Relationship Specialty Start Date End Date Maryam Franco MD [address] [facility] [place] [address] PCP - General Internal Medicine 12/09/20 Business Strategy Manager Relationship Specialty Start Date End Date Maryam Franco MD [address] [facility] [place] [address] PCP - General Internal Medicine 12/09/20 Business Strategy Manager Relationship Specialty Start Date End Date Maryam Franco MD [address] [facility] [place] [address] PCP - General Internal Medicine 12/09/20 Business Strategy Manager Relationship Specialty Start Date End Date Maryam Franco MD [address] [facility] [place] [address] PCP - General Internal Medicine 12/09/20 Business Strategy Manager Relationship Specialty Start Date End Date Maryam Franco MD [address] [facility] [place] [address] PCP - General Internal Medicine 12/09/20 Business Strategy Manager Relationship Specialty Start Date End Date Maryam Franco MD [address] [facility] [place] [address] PCP - General Internal Medicine 12/09/20 Seth Chawla [facility] [address] [place] [address] Transitional Care Pharmacist Pharmacy 08/11/23 09/09/23 Jordan Rowe RN Primary Care Barrel Bung Remover And Dumper 08/11/23 Business Strategy Manager Relationship Specialty Start Date End Date Maryam Franco MD [address] [place] [address] PCP - General Internal Medicine 12/09/20 Seth Chawla [facility] [address] [place] [address] Transitional Care Pharmacist Pharmacy 08/11/23 09/09/23 Jordan Rowe RN Primary Care Barrel Bung Remover And Dumper 08/11/23 Business Strategy Manager Relationship Specialty Start Date End Date Maryam Franco MD [address] [place] [address] PCP - General Internal Medicine 12/09/20 Seth Chawla [facility] [address] [place] [address] Transitional Care Pharmacist Pharmacy 08/11/23 09/09/23 Jordan Rowe RN Primary Care Barrel Bung Remover And Dumper 08/11/23 Business Strategy Manager Relationship Specialty Start Date End Date Maryam Franco MD [address] [place] [address] PCP - General Internal Medicine 12/09/20 Seth Chawla [facility] [address] [place] [address] Transitional Care Pharmacist Pharmacy 08/11/23 09/09/23 Jordan Rowe, aircraft engine dismantler Barrel Bung Remover And Dumper 08/11/23 Business Strategy Manager Relationship Specialty Start Date End Date Maryam Franco MD [address] [place] [address] PCP - General Internal Medicine 12/09/20 Business Strategy Manager Relationship Specialty Start Date End Date Maryam Franco MD [address] [place] [address] PCP - General Internal Medicine 12/09/20 Business Strategy Manager Relationship Specialty Start Date End Date Maryam Franco MD [address] [place] [address] PCP - General Internal Medicine 12/09/20 Business Strategy Manager Relationship Specialty Start Date End Date Maryam Franco MD [address] [place] [address] PCP - General Internal Medicine 12/09/20 Business Strategy Manager Relationship Specialty Start Date End Date Joy Stahl [address] [place] [address] PCP - General 02/10/17 Business Strategy Manager Relationship Specialty Start Date End Date Maryam Franco MD [address] [place] [address] PCP - General Internal Medicine 12/09/20 Business Strategy Manager Relationship Specialty Start Date End Date Maryam Franco MD [address] [place] [address] PCP - General Internal Medicine 12/09/20 Business Strategy Manager Relationship Specialty Start Date End Date Maryam Franco MD [address] [place] [address] PCP - General Internal Medicine 12/09/20 Business Strategy Manager Relationship Specialty Start Date End Date Maryam Franco MD [address] [place] [address] PCP - General Internal Medicine 12/09/20 Business Strategy Manager Relationship Specialty Start Date End Date Maryam Franco MD [address] [place] [address] PCP - General Internal Medicine 12/09/20 Business Strategy Manager Relationship Specialty Start Date End Date Maryam Franco MD [address] [place] [address] PCP - General Internal Medicine 12/09/20 Business Strategy Manager Relationship Specialty Start Date End Date Maryam Franco MD [address] [place] [address] PCP - General Internal Medicine 12/09/20 Business Strategy Manager Relationship Specialty Start Date End Date Maryam Franco MD [address] [place] [address] PCP - General Internal Medicine 12/09/20 Business Strategy Manager Relationship Specialty Start Date End Date Maryam Franco MD [address] [place] [address] PCP - General Internal Medicine 12/09/20 Business Strategy Manager Relationship Specialty Start Date End Date Maryam Franco MD [address] [place] [address] PCP - General Internal Medicine 12/09/20 Business Strategy Manager Relationship Specialty Start Date End Date Maryam Franco MD [address] [place] [address] PCP - General Internal Medicine 12/09/20 Business Strategy Manager Relationship Specialty Start Date End Date Joy Stahl [address] [place] [address] PCP - General 02/10/17 02/01/24 Maryam Franco MD [address] [place] [address] PCP - General Internal Medicine 02/02/24 Business Strategy Manager Relationship Specialty Start Date End Date Maryam Franco MD [address] [place] [address] PCP - General Internal Medicine 12/09/20 Business Strategy Manager Relationship Specialty Start Date End Date Maryam Franco MD [address] [place] [address] PCP - General Internal Medicine 12/09/20 Business Strategy Manager Relationship Specialty Start Date End Date Maryam Franco MD [address] [place] [address] PCP - General Internal Medicine 12/09/20 Business Strategy Manager Relationship Specialty Start Date End Date Maryam Franco MD [address] [place] [address] PCP - General Internal Medicine 12/09/20 Scheduled Active and Recently Administ ered Medications (unrecognized section and content) Medication Order 01/25/2022 01/26/2022 01/27/2022 budesonide-glycopyrrol ate-Formoterol (BREZTRI) 160-9-4.8 MCG/ACT inhaler 1 puff 1 puff, Inhalation, 2 TIMES DAILY, First dose on Wed01/09/22 at 1700, Until Discontinued 1126 (Given - Provider: Elda Neville RCP - Comment: rt not available)2228 (Given - Provider: Jackie Allison, RT) 08 (Given - Provider: Elysia Meyers RCP)2208 (Given - Provider: Jackie Allison, RT) 0934 (Given - Provider: Low Paez, Limited Permit [employer]) DULoxetine (CYMBALTA) capsule DR 60 mg 60 mg, Oral, DAILY, First dose (after last modification) on Wed01/20/22 at 0900, Until Discontinued, Swallow capsule whole; do not crush or chew. May add contents of capsule to apple juice or applesauce (but NOT chocolate) taking care not to crush the pellets and damage the enteric coating. 09 (Given - Provider: Sinai Dan RN) 0834 (Given - Provider: Huong Patino RN) 0933 (Given - Provider: Kaylen Payton, FINESSE) Enoxaparin Sodium (LOVENOX) injection 40 mg 40 mg, Subcutaneous, EVERY 24 HOURS, First dose on Wed01/11/22 at 1600, Until Discontinued, DO NOT ADMINISTER ON DAY OF SURGERY/INVASIVE PROCEDURE UNLESS OTHERWISE DIRECTED., Indications: DVT/PE prophylaxis 1630 (Given - Provider: Sinai Dan RN) 1624 (Given - Provider: Klaudia Osborn RN) 1558 (Given - Provider: Kaylen Payton, FINESSE) escitalopram (LEXAPRO) tablet 10 mg 10 mg, Oral, DAILY, First dose (after last modification) on Wed01/20/22 at 0900, Until Discontinued 908 (Given - Provider: Sinai Dan RN) 0834 (Given - Provider: Huong Patino RN) 0933 (Given - Provider: Kaylen Payton, FINESSE) melatonin tablet 3 mg 3 mg, Oral, DAILY AT BEDTIME, First dose on Wed01/16/22 at 2100, Until Discontinued 2005 (Given - Provider: Cheo Miguel RN) 2038 (Given - Provider: Anayeli Oneill RN) QUEtiapine (SEROquel) tablet 25 mg 25 mg, Oral, DAILY AT BEDTIME, First dose on Wed01/16/22 at 2100, Until Discontinued 2005 (Given - Provider: Cheo Miguel RN) 2038 (Given - Provider: Anayeli Oneill RN) senna (SENOKOT) tablet 8.6 mg(Linked Group 1) 8.6 mg, Oral, DAILY, First dose (after last modification) on Wed01/15/22 at 0900, Until Discontinued 908 (Given - Provider: Sinai Dan RN) 0834 (Given - Provider: Huong Patino RN) 0933 (Given - Provider: Kaylen Payton, FINESSE) senna (SENOKOT) tablet 8.6 mg(Linked Group 1) 8.6 mg, Per NG tube, DAILY, First dose (after last modification) on Wed01/15/22 at 0900, Until Discontinued 908 (See Alternative - Provider: Sinai Dan RN) 0834 (See Alternative - Provider: Huong Patino RN) 0933 (See Alternative - Provider: Kaylen Payton RN) Vital AF 1.2 Kelvin LIQD 90 mL/hr, Nasogastric, Administer over 16 Hours, DAILY AT BEDTIME, First dose (after last modification) on Wed01/16/22 at 2100, Until Discontinued 2100 (Automatically Held) 2100 (Automatically Held) 1901 (Unheld by provider - Provider: System Discharge) PRN Medication Order 01/25/2022 01/26/2022 01/27/2022 acetaminophen (TYLENOL) tablet 650 mg(Linked Group 2) 650 mg, Oral, EVERY 4 HOURS NEEDED, Starting on Wed01/15/22 at 1450, Until Wed01/27/22 at 1901, Mild Pain, Other, Moderate Pain, Severe Pain, Oral temp > 99.5 F, Maximum dose of acetaminophen is 4000 mg from all sources in 24 hours. 0249 (Given - Provider: Courtney Mcneil RN) 1039 (Given - Provider: Huong Patino RN) acetaminophen (TYLENOL) tablet 650 mg(Linked Group 2) 650 mg, Per NG tube, EVERY 4 HOURS NEEDED, Starting on Wed01/15/22 at 1450, Until Wed01/27/22 at 1901, Mild Pain, Other, Moderate Pain, Severe Pain, Oral temp > 99.5 F, Maximum dose of acetaminophen is 4000 mg from all sources in 24 hours. 0249 (See Alternative - Provider: Courtney Mcneil RN) 1039 (See Alternative - Provider: Huong Patino RN) albuterol inhaler 2 puff 2 puff, Inhalation, 4 TIMES DAILY NEEDED, Starting on Wed01/17/22 at 1245, Until Wed01/27/22 at 1901, Shortness of Breath, Wait at least one(1) full minute between inhalations 1608 (Given - Provider: Elysia Meyers RCP) bisacodyl (DULCOLAX) suppository 10 mg 10 mg, Rectal, DAILY NEEDED, Starting on Wed01/14/22 at 0802, Until Wed01/27/22 at 1901, Constipation 1st Line dextrose 50% injection 7.5-25 g(Linked Group 3) 7.5-25 g, Intravenous, ADMINISTER DIRECTED, Starting on Wed01/09/22 at 0132, Until Wed01/27/22 at 1901, Blood glucose <80 mg/dL, For patients who are not alert, are NPO, or are on IV insulin infusion administer as directed per Hypoglycemia in Non- Adults Clinical Practice Guideline. For Blood Glucose: 60-79 mg/dL administer 7.5 gm (15ml); 45-59 mg/dL administer 12.5 gm (25ml); less than 45mg/dL administer 25gm (50ml). glucose (GLUTOSE) 40 % oral gel 1-2 Tube(Linked Group 3) 1-2 Tube, Oral, ADMINISTER DIRECTED, Starting on Wed01/09/22 at 0132, Until Wed01/27/22 at 1901, Blood glucose <80 mg/dL, For patients who are alert, able to tolerate PO intake and with intact cognitive status administer as directed per Hypoglycemia in Non- Adults Clinical Practice Guideline. For Blood Glucose: 60-79 mg/dL administer 1 tube; 45-59 mg/dl administer 1.5 tubes; less than 45 mg/dL administer 2 tubes. Each tube of 37.5g delivers 15g of carbohydrate. ++ National shortage requires use of alternates. Consider juice, food, and glucose tablets per Clinical Practice Guideline first if appropriate. For Insta-Glucose product: Each tube of 31g delivers 24g of carbohydrate. Percent strength 77.4% represents glucose content, equal to ~40% dextrose content. ++ hydrALAZINE (APRESOLINE) injection 10 mg(Linked Group 4) 10 mg, Intravenous, EVERY 1 HOUR NEEDED, Starting on Wed01/09/22 at 0132, Until Wed01/27/22 at 190, Other, SBP > 140 mmHg with HR < 60 bpm, Use as initial dose. Use if Heart Rate LESS THAN 60 beats per minute. Higher dose may be administered if lower dose was previously documented as ineffective 10 minutes after administration and did not result in adverse effects (HR>90) hydrALAZINE (APRESOLINE) injection 20 mg(Linked Group 4) 20 mg, Intravenous, EVERY 1 HOUR NEEDED, Starting on Wed01/09/22 at 0132, Until Wed01/27/22 at 1901, Other, SBP > 140 mmHg with HR < 60 bpm, Use if Heart Rate LESS THAN 60 beats per minute. Higher dose may be administered if lower dose was previously documented as ineffective 10 minutes after administration and did not result in adverse effects (HR>90). Decrease back to lower dose if patient has adverse effects, or no PRN used in previous 3 hours HYDROmorphone (DILAUDID) injection 0.5 mg(Linked Group 5) 0.5 mg, Intravenous, EVERY 3 HOURS NEEDED, Starting on Wed01/09/22 at 0132, Until Wed01/27/22 at 1901, Severe Pain, Use as initial dose. Higher dose may be administered if lower dose was previously documented as ineffective and did not result in adverse effects (RR<10, decrease in level of consciousness). HYDROmorphone (DILAUDID) injection 1 mg(Linked Group 5) 1 mg, Intravenous, EVERY 3 HOURS NEEDED, Starting on Wed01/09/22 at 0132, Until Wed01/27/22 at 1901, Severe Pain, Higher dose may be administered if lower dose was previously documented as ineffective and did not result in adverse effects (RR<10, decrease in level of consciousness). Decrease back to lower dose if patient has adverse effects, or no PRN used in previous 12 hours. hydrOXYzine HCl (ATARAX) tablet 50 mg 50 mg, Oral, EVERY 6 HOURS NEEDED, Starting on Wed01/19/22 at 1730, Until Wed01/27/22 at 1901, Anxiety 0506 (Given - Provider: Courtney Mcneil RN)1212 (Given - Provider: Siani Dan, FINESSE)2006 (Given - Provider: Cheo Miguel, RN) 1052 (Given - Provider: Huong Patino, FINESSE) 0456 (Given - Provider: Anayeli Oneill RN)1649 (Given - Provider: Kaylen Payton, FINESSE) labetalol (NORMODYNE) injection 10 mg(Linked Group 6) 10 mg, Intravenous, EVERY 1 HOUR NEEDED, Starting on Wed01/09/22 at 0132, Until Wed01/27/22 at 1901, SBP > 140 mmHg with HR >60 bpm, Use as initial dose. Use if Heart Rate GREATER THAN 60 beats per minute. Higher dose may be administered if lower dose was previously documented as ineffective 10 minutes after administration and did not result in adverse effects (HR<60) For vials: labetalol should be treated as a SINGLE USE VIAL. Discard remaining contents after one use. labetalol (NORMODYNE) injection 20 mg(Linked Group 6) 20 mg, Intravenous, EVERY 1 HOUR NEEDED, Starting on Wed01/09/22 at 0132, Until Wed01/27/22 at 1901, SBP > 140 mmHg with HR > 60 bpm, Use if Heart Rate GREATER THAN 60 beats per minute. Higher dose may be administered if lower dose was previously documented as ineffective 10 minutes after administration and did not result in adverse effects (HR<60). Decrease back to lower dose if patient has adverse effects, or no PRN used in previous 3 hours For vials: labetalol should be treated as a SINGLE USE VIAL. Discard remaining contents after one use. ondansetron (ZOFRAN) tablet 4 mg(Linked Group 7) 4 mg, Per NG tube, EVERY 6 HOURS NEEDED, Starting on Wed01/14/22 at 0806, Until Wed01/27/22 at 1901, Nausea / Vomiting ondansetron 4mg/2ml (ZOFRAN) injection 4 mg(Linked Group 7) 4 mg, Intravenous, EVERY 6 HOURS NEEDED, Starting on Wed01/14/22 at 0806, Until Wed01/27/22 at 1901, Nausea / Vomiting oxyCODONE (ROXICODONE) tablet 5 mg(Linked Group 8) 5 mg, Oral, EVERY 4 HOURS NEEDED, Starting on Wed01/09/22 at 0132, Until Wed01/27/22 at 1901, Moderate Pain, May also be crushed and added to water for patient unable to tolerate oral tab. 0506 (Given - Provider: Courtney Mcneil RN)1319 (Given - Provider: Sinai Dan, RN)2005 (Given - Provider: Cheo Miguel RN) 06 (Given - Provider: Cheo Miguel RN)1624 (Given - Provider: Klaudia Osborn, RN)220 (Given - Provider: Anayeli Oneill RN) 0456 (Given - Provider: Anayeli Oneill RN)0931 (Given - Provider: Kaylen Payton, FINESSE)1333 (Given - Provider: Kaylen Payton, FINESSE) oxyCODONE (ROXICODONE) tablet 5 mg(Linked Group 8) 5 mg, Per NG tube, EVERY 4 HOURS NEEDED, Starting on Wed01/09/22 at 0132, Until Wed01/27/22 at 1901, Moderate Pain, May be crushed and added to water for administration via NG tube. 0506 (See Alternative - Provider: Courtney Mcneil RN)1319 (See Alternative - Provider: Sinai Dan, FINESSE)2005 (See Alternative - Provider: Cheo Miguel RN) 06 (See Alternative - Provider: Ceho Miguel RN)162 (See Alternative - Provider: Klaudia Osborn, FINESSE)220 (See Alternative - Provider: Anayeli Oneill RN) 0456 (See Alternative - Provider: Anayeli Oneill RN)0931 (See Alternative - Provider: Kaylen Payton RN)1333 (See Alternative - Provider: Kaylen Payton, FINESSE) polyethylene glycol (MIRALAX) packet 17 g(Linked Group 9) 17 g, Oral, DAILY NEEDED, Starting on Wed01/09/22 at 0132, Until Wed01/27/22 at 1901, Constipation If No Bowel Movement in 48 Hours polyethylene glycol (MIRALAX) packet 17 g(Linked Group 9) 17 g, Per NG tube, DAILY NEEDED, Starting on Wed01/09/22 at 0132, Until Wed01/27/22 at 1901, Constipation If No Bowel Movement in 48 Hours Polyvinyl Alcohol-Povidone PF (REFRESH) ophthalmic solution 1 drop 1 drop, Both Eyes, NEEDED, Starting on Wed01/15/22 at 1824, Until Wed01/27/22 at 1901, Dry Eyes, Patient may self-administer. witch hung-glycerin (TUCKS) pad 1 Application 1 Application, Topical, NEEDED, Starting on Wed01/20/22 at 1436, Until Wed01/27/22 at 1901, Other, hemorrhoids, Patient may self-administer zolpidem (AMBIEN) tablet 10 mg 10 mg, Oral, DAILY AT BEDTIME NEEDED, Starting on Wed01/19/22 at 0819, Until Wed01/27/22 at 1901, Sleep 2005 (Given - Provider: Cheo Miguel, FINESSE) 2203 (Given - Provider: Anayeli Oneill RN) Linked Groups Order Group 1: senna (SENOKOT) tablet 8.6 mgJump to med 8.6 mg, Oral, DAILY, First dose (after last modification) on Wed01/15/22 at 0900, Until Discontinued Or senna (SENOKOT) tablet 8.6 mgJump to med 8.6 mg, Per NG tube, DAILY, First dose (after last modification) on Wed01/15/22 at 0900, Until Discontinued Group 2: acetaminophen (TYLENOL) tablet 650 mgJump to med 650 mg, Oral, EVERY 4 HOURS NEEDED, Starting on Wed01/15/22 at 1450, Until Wed01/27/22 at 1901, Mild Pain, Other, Moderate Pain, Severe Pain, Oral temp > 99.5 F
Maximum dose of acetaminophen is 4000 mg from all sources in 24 hours.
Or acetaminophen (TYLENOL) tablet 650 mgJump to med 650 mg, Per NG tube, EVERY 4 HOURS NEEDED, Starting on Wed01/15/22 at 1450, Until Wed01/27/22 at 1901, Mild Pain, Other, Moderate Pain, Severe Pain, Oral temp > 99.5 F
Maximum dose of acetaminophen is 4000 mg from all sources in 24 hours.
Group 3: insulin regular (HumuLIN R;NovoLIN R) injection (CANCELED) Subcutaneous, EVERY 6 HOURS, First dose on Wed01/09/22 at 0145, Until Discontinued
Correction factor parameters most appropriate for NPO or tube feeding patients: Blood glucose under 60 = call H.O.; 151 - 200 = 2 units; 201 - 250 = 4 units; 251 - 300 = 6 units; 301 - 350 = 8 units; 351 - 400 = 10 units; Over 400 = call H.O. An initial vial will be sent from the pharmacy without prompting. Replacement vials require a MAR request when needed. Pyxis has a vial for emergent doses only.
And BLOOD GLUCOSE (POC DEVICE) (CANCELED) Routine, EVERY 6 HOURS, First occurrence on Wed01/09/22 at 0600
If any Blood Glucose (POC) is greater than 300mg/dl, then repeat Blood Glucose (POC) in 2 hours. If the initial blood glucose was greater than 300mg/dl and if second blood glucose is greater than 200mg/dl, then notify [facility]er Tender. And BLOOD GLUCOSE (POC DEVICE) UDPRN (CANCELED) Routine, PRN, Starting on Wed01/09/22 at 0132, Until Specified
For all Blood Glucose LESS THAN 80 mg/dL, treat per Hypoglycemia in Non- Adults Clinical Practice Guideline (CPG) and recheck glucose 15 min after treatment. Repeat per CPG until glucose GREATER THAN 80 mg/dL. Once glucose IS GREATER THAN 80 mg/dL, recheck Blood Glucose every 1 hour x2, then resume as previously ordered. For Blood Glucose LESS THAN 80 mg/dL on admission OR LESS than 45 mg/dL at any time, obtain POC Blood Glucose every 4 hours for 6 occurrences AFTER treating per CPG. Obtain blood glucose for symptoms of hypoglycemia: sweating, shaking, fatigue, rapid pulse, slow thinking & dizziness. Notify physician w/results. Obtain blood glucose for symptoms of hyperglycemia: excessive thirst, blurred vision, excessive urination & tiredness. Notify physician w/results. If patient NPO, obtain POC Blood Glucose prior to administration of any insulin products. And COMMUNICATION ORDER FOR NURSING CARE: For Blood Glucose LESS THAN 80 mg/dl (CANCELED) Routine, CONTINUOUS, Starting on Wed01/09/22 at 0133, Until Specified
For Blood Glucose LESS THAN 80 mg/dl, follow Hypoglycemia in Non- Adults Clinical Practice Guideline (CPG) And dextrose 50% injection 7.5-25 gJump to med 7.5-25 g, Intravenous, ADMINISTER DIRECTED, Starting on Wed01/09/22 at 0132, Until Wed01/27/22 at 1901, Blood glucose <80 mg/dL
For patients who are not alert, are NPO, or are on IV insulin infusion administer as directed per Hypoglycemia in Non- Adults Clinical Practice Guideline. For Blood Glucose: 60-79 mg/dL administer 7.5 gm (15ml); 45-59 mg/dL administer 12.5 gm (25ml); less than 45mg/dL administer 25gm (50ml).
And glucose (GLUTOSE) 40 % oral gel 1-2 TubeJump to med 1-2 Tube, Oral, ADMINISTER DIRECTED, Starting on Wed01/09/22 at 0132, Until Wed01/27/22 at 1901, Blood glucose <80 mg/dL
For patients who are alert, able to tolerate PO intake and with intact cognitive status administer as directed per Hypoglycemia in Non- Adults Clinical Practice Guideline. For Blood Glucose: 60-79 mg/dL administer 1 tube; 45-59 mg/dl administer 1.5 tubes; less than 45 mg/dL administer 2 tubes. Each tube of 37.5g delivers 15g of carbohydrate. ++ National shortage requires use of alternates. Consider juice, food, and glucose tablets per Clinical Practice Guideline first if appropriate. For Insta-Glucose product: Each tube of 31g delivers 24g of carbohydrate. Percent strength 77.4% represents glucose content, equal to ~40% dextrose content. ++
And NOTIFY PHYSICIAN, Blood Glucose LESS THAN 80 mg/dl (CANCELED) Routine, CONTINUOUS, Starting on Wed01/09/22 at 0133, Until Specified
Who to Notify: [facility] Tender
For all Blood Glucose LESS THAN 80 mg/dl, notify [facility]er Tender after treatment per Hypoglycemia in Non- Adults Clinical Practice Guideline Group 4: hydrALAZINE (APRESOLINE) injection 10 mgJump to med 10 mg, Intravenous, EVERY 1 HOUR NEEDED, Starting on Wed01/09/22 at 0132, Until Wed01/27/22 at 1901, Other, SBP > 140 mmHg with HR < 60 bpm
Use as initial dose. Use if Heart Rate LESS THAN 60 beats per minute. Higher dose may be administered if lower dose was previously documented as ineffective 10 minutes after administration and did not result in adverse effects (HR>90)
Or hydrALAZINE (APRESOLINE) injection 20 mgJump to med 20 mg, Intravenous, EVERY 1 HOUR NEEDED, Starting on Wed01/09/22 at 0132, Until Wed01/27/22 at 1901, Other, SBP > 140 mmHg with HR < 60 bpm
Use if Heart Rate LESS THAN 60 beats per minute. Higher dose may be administered if lower dose was previously documented as ineffective 10 minutes after administration and did not result in adverse effects (HR>90). Decrease back to lower dose if patient has adverse effects, or no PRN used in previous 3 hours
Group 5: HYDROmorphone (DILAUDID) injection 0.5 mgJump to med 0.5 mg, Intravenous, EVERY 3 HOURS NEEDED, Starting on Wed01/09/22 at 0132, Until Wed01/27/22 at 1901, Severe Pain
Use as initial dose. Higher dose may be administered if lower dose was previously documented as ineffective and did not result in adverse effects (RR<10, decrease in level of consciousness).
Or HYDROmorphone (DILAUDID) injection 1 mgJump to med 1 mg, Intravenous, EVERY 3 HOURS NEEDED, Starting on Wed01/09/22 at 0132, Until Wed01/27/22 at 1901, Severe Pain
Higher dose may be administered if lower dose was previously documented as ineffective and did not result in adverse effects (RR<10, decrease in level of consciousness). Decrease back to lower dose if patient has adverse effects, or no PRN used in previous 12 hours.
Group 6: labetalol (NORMODYNE) injection 10 mgJump to med 10 mg, Intravenous, EVERY 1 HOUR NEEDED, Starting on Wed01/09/22 at 0132, Until Wed01/27/22 at 1901, SBP > 140 mmHg with HR >60 bpm
Use as initial dose. Use if Heart Rate GREATER THAN 60 beats per minute. Higher dose may be administered if lower dose was previously documented as ineffective 10 minutes after administration and did not result in adverse effects (HR<60) For vials: labetalol should be treated as a SINGLE USE VIAL. Discard remaining contents after one use.
Or labetalol (NORMODYNE) injection 20 mgJump to med 20 mg, Intravenous, EVERY 1 HOUR NEEDED, Starting on Wed01/09/22 at 013, Until Wed01/27/22 at 190, SBP > 140 mmHg with HR > 60 bpm
Use if Heart Rate GREATER THAN 60 beats per minute. Higher dose may be administered if lower dose was previously documented as ineffective 10 minutes after administration and did not result in adverse effects (HR<60). Decrease back to lower dose if patient has adverse effects, or no PRN used in previous 3 hours For vials: labetalol should be treated as a SINGLE USE VIAL. Discard remaining contents after one use.
Group 7: ondansetron 4mg/2ml (ZOFRAN) injection 4 mgJump to med 4 mg, Intravenous, EVERY 6 HOURS NEEDED, Starting on Wed01/14/22 at 0806, Until Wed01/27/22 at 1901, Nausea / Vomiting Or ondansetron (ZOFRAN) tablet 4 mgJump to med 4 mg, Per NG tube, EVERY 6 HOURS NEEDED, Starting on Wed01/14/22 at 0806, Until Wed01/27/22 at 1901, Nausea / Vomiting Group 8: oxyCODONE (ROXICODONE) tablet 5 mgJump to med 5 mg, Oral, EVERY 4 HOURS NEEDED, Starting on Wed01/09/22 at 0132, Until Wed01/27/22 at 1901, Moderate Pain
May also be crushed and added to water for patient unable to tolerate oral tab.
Or oxyCODONE (ROXICODONE) tablet 5 mgJump to med 5 mg, Per NG tube, EVERY 4 HOURS NEEDED, Starting on Wed01/09/22 at 0132, Until Wed01/27/22 at 1901, Moderate Pain
May be crushed and added to water for administration via NG tube.
Group 9: polyethylene glycol (MIRALAX) packet 17 gJump to med 17 g, Oral, DAILY NEEDED, Starting on Wed01/09/22 at 0132, Until Wed01/27/22 at 1901, Constipation If No Bowel Movement in 48 Hours Or polyethylene glycol (MIRALAX) packet 17 gJump to med 17 g, Per NG tube, DAILY NEEDED, Starting on Wed01/09/22 at 0132, Until Wed01/27/22 at 1901, Constipation If No Bowel Movement in 48 Hours Scheduled Medication Order 10/10/2023 10/11/2023 10/12/2023 ARIPiprazole (Abilify) tablet 2 mg 2 mg, Oral, Daily, First dose on Wed10/09/23 at 1045 0858 (Given - Provider: Yanet Maldonado RN) 0813 (Given - Provider: Mari Robertson, FINESSE) 0901 (Given - Provider: Trinity Salinas) aspirin chewable tablet 81 mg 81 mg, Per G Tube, Daily, First dose (after last modification) on Wed10/08/23 at 0900 0855 (Given - Provider: Yanet Maldonado RN) 0815 (Given - Provider: Mari Robertson, FINESSE) 0900 (Given - Provider: Trinity Salinas) atorvastatin (Lipitor) tablet 40 mg 40 mg, Per G Tube, Nightly, First dose (after last modification) on Wed10/07/23 at 2100 2115 (Given - Provider: Francesca Forrest, RN) 5 (Given - Provider: Steven Estrada, FINESSE) budesonide (Pulmicort) 0.5 MG/2ML nebulizer solution 0.5 mg 0.5 mg, Nebulization, Daily, First dose on Wed09/26/23 at 1715, Rinse mouth with water after use to reduce aftertaste and incidence of candidiasis. Do not swallow. 0748 (Given - Provider: Camilo Moreno RCP) 0843 (Given - Provider: Norris Read RCP) 0753 (Given - Provider: Norris Read RCP) cholecalciferol (Vitamin D-3) tablet 1,000 Units 1,000 Units, Oral, Daily, First dose on Wed10/09/23 at 1200 0855 (Given - Provider: Yanet Maldonado RN) 0816 (Given - Provider: Mari Robertson RN) 0901 (Given - Provider: Trinity Salinas) DULoxetine (Cymbalta) DR capsule 60 mg 60 mg, Oral, Daily, First dose on 09/26/23 at 1530, Do not crush or chew., , On hold since [facility] 10/07/2023 at 1335 until manually unheld 0800 (Dose Auto Held - Provider: AUNG Starkey CNP) 0800 (Dose Auto Held - Provider: AUNG Starkey CNP) 0800 (Dose Auto Held - Provider: AUNG Starkey CNP)1848 (Unheld by provider - Provider: Automatic Discharge Provider) enoxaparin (Lovenox) syringe 40 mg 40 mg, SubCUTAneous, Every 24 hours scheduled (Daily), First dose on 09/26/23 at 1530, Indication of Use: Prophylaxis-DVT/PE, Indications: Prophylaxis of Venous Thromboembolism 0855 (Given - Provider: Yanet Maldonado RN) 0815 (Given - Provider: Mari Robertson RN) 0902 (Given - Provider: Trinity Salinas) escitalopram (Lexapro) tablet 20 mg 20 mg, Per G Tube, Daily, First dose (after last modification) on Wed10/08/23 at 0900 0854 (Given - Provider: Yanet Maldonado RN) 0816 (Given - Provider: aMri Robertson RN) 0901 (Given - Provider: Trinity Salinas) folic acid (Folvite) tablet 1 mg 1 mg, Per G Tube, Daily, First dose (after last modification) on Wed10/08/23 at 0800 0855 (Given - Provider: Yanet Maldonado RN) 0815 (Given - Provider: Mari Robertson RN) 0900 (Given - Provider: Trinity Salinas) furosemide (Lasix) solution 20 mg 20 mg, Per G Tube, Daily, First dose (after last modification) on Wed10/10/23 at 0900 0915 (Given - Provider: Yanet Maldonado RN) 0814 (Given - Provider: Mari Robertson RN) 0902 (Given - Provider: Trinity Salinas) gabapentin (Neurontin) solution 300 mg 300 mg, Per G Tube, Nightly, First dose (after last modification) on Sara 10/07/23 at 2100 2100 (Given - Provider: Francesca Forrest RN) 2057 (Given - Provider: Steven Estrada RN) ipratropium-albuterol (Duo-Neb) 0.5-2.5 mg/3 mL nebulizer solution 3 mL 3 mL, Nebulization, Every 4 hours, First dose (after last modification) on Wed09/28/23 at 1245 0441 (Given - Provider: Bessie Wade RCP)0747 (Given - Provider: Camilo Moreno RCP)1214 (Given - Provider: Camilo Moreno RCP)1623 (Given - Provider: Camilo Moreno RCP)2011 (Given - Provider: Bessie Wade RCP)2348 (Given - Provider: Bessie Wade RCP) 0424 (Given - Provider: Bessie Wade RCP)0843 (Given - Provider: Norris Read RCP)1219 (Given - Provider: Norris Read RCP)1533 (Given - Provider: Norris Read RCP)2142 (Given - Provider: Alexandria Muniz RRT)2312 (Given - Provider: Alexandria Muniz RRT) 0303 (Given - Provider: Alexandria Muniz RRT)0753 (Given - Provider: Norris Read RCP)1118 (Given - Provider: Norris Read RCP)1519 (Given - Provider: Norris Read RCP) lansoprazole (Prevacid SoluTab) disintegrating tablet 30 mg 30 mg, Nasogastric, Daily before breakfast, First dose on Wed10/08/23 at 0600, For NG tube administration, place tablet in oral syringe, draw up 10 mL water, and administer within 15 minutes of dissolving. Refill syringe with 5mL water, shake gently, and use to flush the NG tube. Do not crush or break. 0400 (Given - Provider: Francesca Forrest RN) 0358 (Given - Provider: Francesca Forrest RN) 0617 (Given - Provider: Steven Estrada, FINESSE) levETIRAcetam (Keppra) 100 MG/ML solution 1,000 mg 1,000 mg, Per G Tube, 2 times daily, First dose (after last modification) on Sara 10/07/23 at 2100 0856 (Given - Provider: Yanet Maldonado, FINESSE)2116 (Given - Provider: Francesca Forrest RN) 0814 (Given - Provider: Mari Robertson RN)2057 (Given - Provider: Steven Estrada, FINESSE) 0903 (Given - Provider: Trinity Salinas) metoprolol succinate XL (Toprol-XL) 24 hr tablet 25 mg 25 mg, Oral, Daily, First dose on 10/10/23 at 0900, Do not crush or chew. 0854 (Given - Provider: Yanet Maldonado RN) 0815 (Given - Provider: Mari Robertson RN) 0901 (Given - Provider: Trinity Salinas) polyethylene glycol (PEG) 3350 (Miralax) packet 17 g 17 g, Per G Tube, 2 times daily, First dose (after last modification) on Sara 10/07/23 at 2100, Indications: Constipation 0855 (Given - Provider: Yanet Maldonado RN)2100 (Not Given - Provider: Francesca Forrest RN - Reason: Patient/family refused) 0815 (Given - Provider: Mari Robertson, FINESSE)2058 (Given - Provider: Steven Estrada RN) 0903 (Given - Provider: Trinity Salinas) predniSONE (Deltasone) tablet 10 mg (COMPLETED)(Linked Group 1) 10 mg, Oral, Daily, First dose on 10/09/23 at 0900, For 2 doses 0855 (Given - Provider: Yanet Maldonado RN) predniSONE (Deltasone) tablet 5 mg (COMPLETED)(Linked Group 1) 5 mg, Oral, Daily, First dose on 10/11/23 at 0900, For 2 doses 0814 (Given - Provider: Mari Robertson RN) 1119 (Given - Provider: Analy Ramirez RN) Propylene Glycol-Glycerin (Artificial tears) 1-0.3 % solution 1 drop 1 drop, Both Eyes, Daily, First dose on Wed09/27/23 at 2014 0858 (Given - Provider: Yanet Maldonado, FINESSE) 0814 (Given - Provider: Mari Robertson, FINESSE) 09 (Given - Provider: Trinity Salinas) QUEtiapine (SEROquel) tablet 50 mg 50 mg, Per G Tube, Daily, First dose (after last modification) on Wed10/08/23 at 0900 0854 (Given - Provider: Yanet Maldonado RN) 0815 (Given - Provider: Mari Robertson, FINESSE) 09 (Given - Provider: Trinity Salinas) rOPINIRole (Requip) tablet 1 mg 1 mg, Oral, Nightly, First dose on Wed10/09/23 at 2099 2116 (Given - Provider: Francesca Forrest, FINESSE) 2054 (Given - Provider: Steven Estrada, FINESSE) Senna (Senokot) syrup 10 mL 10 mL, Per G Tube, 2 times daily, First dose (after last modification) on Wed10/07/23 at 2099 0901 (Given - Provider: Yanet Maldonado, FINESSE)2099 (Not Given - Provider: Francesca Forrest, FINESSE - Reason: Patient/family refused) 812 (Given - Provider: Mari Robertson, FINESSE)2057 (Given - Provider: Steven Estrada, FINESSE) 09 (Given - Provider: Trinity Salinas) stomahesive in petrolatum (ET Mix) Topical, Every 8 hours, First dose on Wed10/05/23 at 1245 0445 (Given - Provider: Francesca Forrest RN)1457 (Given - Provider: Yanet Maldonado, FINESSE)2045 (Given - Provider: Francesca Forrest, RN) 0445 (Given - Provider: Francesca Forrest, RN)1140 (Given - Provider: Mari Robertson, FINESSE)2054 (Given - Provider: Steven Estrada, FINESSE) 0619 (Given - Provider: Steven Estrada, FINESSE)1125 (Given - Provider: Analy Ramirez RN) thiamine (Vitamin B1) tablet 100 mg 100 mg, Per PEG Tube, Daily, First dose on Wed10/07/23 at 2100 2115 (Given - Provider: Francesca Forrest RN) 2055 (Given - Provider: Steven Estrada, RN) PRN Medication Order 10/10/2023 10/11/2023 10/12/2023 acetaminophen (Tylenol) solution 650 mg 650 mg, Oral, Every 8 hours PRN, mild pain (1-3), or Temp >101F, Starting on 10/02/23 at 1019, Maximum dose of acetaminophen is 4000 mg from all sources in 24 hours. 0617 (Given - Provider: Steven Estrada RN) HYDROmorphone (Dilaudid) injection 0.5 mg 0.5 mg, IntraVENous, Every 4 hours PRN, severe pain (7-10), Starting on 10/10/23 at 1435, If oral and IV narcotics ordered, use oral first and only use IV if oral is ineffective or cannot take oral. Do Not give oral and IV within 1 hour of each other unless specifically ordered. 1455 (Given - Provider: Yanet Maldonado RN)2114 (Given - Provider: Francesca Forrest RN) 0439 (Given - Provider: Francesca Forrest RN)1408 (Given - Provider: Mari Robertson, FINESSE) 1159 (Given - Provider: Analy Ramirez, FINESSE) hydrOXYzine pamoate (Vistaril) capsule 50 mg 50 mg, Oral, Every 6 hours PRN, anxiety, Starting on Sara 09/30/23 at 1558 0250 (Given - Provider: Francesca Forrest RN)0855 (Given - Provider: Yanet Maldonado RN)1733 (Given - Provider: Yanet Maldonado RN)2113 (Given - Provider: Francesca Forrest RN) 2055 (Given - Provider: Steven Estrada, FINESSE) 0618 (Given - Provider: Steven Estrada, FINESSE) melatonin tablet 5 mg 5 mg, Oral, Nightly PRN, sleep, Starting on Wed10/06/23 at 2018, 1st line 2114 (Given - Provider: Francesca Forrest RN) 2055 (Given - Provider: Steven Estrada, RN) naloxone (Narcan) injection 0.4 mg 0.4 mg, IntraVENous, Every 5 min PRN, opioid reversal, respiratory depression, Starting on Wed09/28/23 at 0647, +++ For RR <10, pinpoint pupils, over sedation for opioid reversal - MUST notify organizational consultant provider immediately after first dose, may give IM or SQ if no IV access +++ ondansetron (Zofran) injection 4 mg(Linked Group 2) 4 mg, IntraVENous, Every 6 hours PRN, nausea, vomiting, Starting on 09/26/23 at 1509, 1st Line. Give IV if patient is unable to take orally. If inadequate response within 60 minutes, proceed to next-line agent or contact provider if no further options ordered. ondansetron ODT (Zofran-ODT) disintegrating tablet 4 mg(Linked Group 2) 4 mg, Oral, Every 8 hours PRN, nausea, vomiting, Starting on 09/26/23 at 1509, 1st Line. If inadequate response within 60 minutes, proceed to next-line agent or contact provider if no further options ordered. Patient should allow tablet to dissolve on tongue. Do not remove from blister pack until just before administering. oxyCODONE (Roxicodone) immediate release tablet 5 mg 5 mg, Oral, Every 6 hours PRN, severe pain (7-10), Starting on Wed10/08/23 at 1347 0251 (Given - Provider: Francesca Forrest RN)0855 (Given - Provider: Yanet Maldonado, FINESSE)1733 (Given - Provider: Yanet Maldonado, FINESSE) 1139 (Given - Provider: Mari Robertson, FINESSE)2055 (Given - Provider: Steven Estrada, FINESSE) 0617 (Given - Provider: Steven Estrada RN) Propylene Glycol-Glycerin (Artificial tears) 1-0.3 % solution 1 drop 1 drop, Both Eyes, As needed, dry eyes, Starting on 09/26/23 at 1509 sodium chloride 0.9 % infusion 5-250 mL/hr, IntraVENous, PRN, if patient receiving piggyback infusions and maintenance fluids are not ordered OR KVO fluids to protect IV site / prevent frequent line interruptions / long duration, Starting on Wed09/26/23 at 1513, For piggyback infusion, administer at same rate as piggyback for a total of 25 mL. Enter 25 mL into dose field and piggyback rate into rate field of order. If piggyback is infusing at a rate less than 100 mL/hr, enter 25 mL into dose field and 100 mL/hr into rate field of order. For KVO fluids, enter rate of 20 mL/hr or less into rate field of order. sodium chloride 0.9 % infusion 250 mL/hr, IntraVENous, Administer over 10 Minutes, As needed, For use in priming line prior to transfusion (prime via gravity) and flush line post transfusion, Starting on Wed10/05/23 at 0646, For 1 dose, For use in priming line prior to transfusion (prime via gravity) and flush line post transfusion ONLY. Discontinue once line has been cleared of remaining blood product. stomahesive in petrolatum (ET Mix) Topical, As needed, dry skin, Starting on Wed10/05/23 at 1232 zolpidem (Ambien) tablet 10 mg 10 mg, Oral, Nightly PRN, sleep, Starting on Wed10/06/23 at 2335 2114 (Given - Provider: Francesca Forrest, RN) 2055 (Given - Provider: Steven Estrada RN) Linked Groups Order Group 1: predniSONE (Deltasone) tablet 40 mg (COMPLETED) 40 mg, Oral, Daily, First dose on Wed10/05/23 at 0900, For 2 doses Followed by predniSONE (Deltasone) tablet 20 mg (COMPLETED) 20 mg, Oral, Daily, First dose on Sara 10/07/23 at 0900, For 2 doses Followed by predniSONE (Deltasone) tablet 10 mg (COMPLETED)Jump to med 10 mg, Oral, Daily, First dose on 10/09/23 at 0900, For 2 doses Followed by predniSONE (Deltasone) tablet 5 mg (COMPLETED)Jump to med 5 mg, Oral, Daily, First dose on 10/11/23 at 0900, For 2 doses Group 2: ondansetron ODT (Zofran-ODT) disintegrating tablet 4 mgJump to med 4 mg, Oral, Every 8 hours PRN, nausea, vomiting, Starting on 09/26/23 at 1509, 1st Line. If inadequate response within 60 minutes, proceed to next-line agent or contact provider if no further options ordered. Patient should allow tablet to dissolve on tongue. Do not remove from blister pack until just before administering. Or ondansetron (Zofran) injection 4 mgJump to med 4 mg, IntraVENous, Every 6 hours PRN, nausea, vomiting, Starting on 09/26/23 at 1509, 1st Line. Give IV if patient is unable to take orally. If inadequate response within 60 minutes, proceed to next-line agent or contact provider if no further options ordered. Scheduled Medication Order 02/11/2024 02/12/2024 02/13/2024 albuterol (2.5 MG/3ML) 0.083% nebulizer solution 2.5 mg 2.5 mg, Nebulization, 3 times daily, First dose on 02/06/24 at 0945 0932 (Given - Provider: Alayna Sen RRT)1236 (Given - Provider: Alayna Sen RRT)2136 (Given - Provider: Leona Rodney RRT) 0806 (Given - Provider: Camilo Moreno RCP)1314 (Given - Provider: Camilo Moreno RCP)1941 (Given - Provider: Pepe Mckeon RRT) 0820 (Given - Provider: Camilo Moreno RCP)1400 (Canceled Entry - Provider: Automatic Discharge Provider - Comment: Automatically canceled at discontinue of medication order) DULoxetine (Cymbalta) DR capsule 30 mg 30 mg, Oral, Daily, First dose (after last modification) on 02/05/24 at 0900, Do not crush or chew. 0935 (Given - Provider: Simone Leonardo) 0828 (Given - Provider: Char Acuña RN) 0911 (Given - Provider: Char Acuña, FINESSE) enoxaparin (Lovenox) syringe 40 mg 40 mg, SubCUTAneous, Every 24 hours scheduled (Daily), First dose on 01/29/24 at 0900, Indication of Use: Prophylaxis-DVT/PE, Indications: Prophylaxis of Venous Thromboembolism 0936 (Given - Provider: Simone Leonardo) 0828 (Given - Provider: Char Acuña, FINESSE) 0911 (Given - Provider: Char Acuña, RN) famotidine (Pepcid) tablet 20 mg 20 mg, Oral, 2 times daily, First dose on 02/06/24 at 2100 0935 (Given - Provider: Simone Leonardo)2049 (Given - Provider: Emily Taylor RN) 0828 (Given - Provider: Char Acuña, FINESSE)2215 (Given - Provider: Adrian Sethi, RN) 09 (Given - Provider: hCar Acuña, FINESSE) melatonin tablet 3 mg 3 mg, Oral, Nightly, First dose on 01/29/24 at 2099 2049 (Given - Provider: Emily Taylor RN) 2215 (Given - Provider: Adrian Sethi, RN) mometasone-formoterol (Dulera 200) 200-5 MCG/ACT inhaler 2 puff 2 puff, Inhalation, 2 times daily, First dose on Wed02/06/24 at 0945, Rinse mouth with water after use to reduce aftertaste and incidence of candidiasis. Do not swallow. 0938 (Given - Provider: Simone Leonardo)2050 (Given - Provider: Emily Taylor RN) 08 (Given - Provider: Char Acuña RN)2216 (Given - Provider: Adrian Sethi, FINESSE) 0912 (Given - Provider: Char Acuña, FINESSE) oxyCODONE (Roxicodone) immediate release tablet 5 mg (COMPLETED) 5 mg, Oral, Once, On 02/12/24 at 0615, For 1 dose 0615 (Given - Provider: Emily Taylor RN - Comment: armband does not scan) potassium chloride CR (Klor-Con M10) ER tablet 10 mEq 10 mEq, Oral, Daily, First dose (after last modification) on Wed02/11/24 at 1415, Best given with food and plenty of water to minimize gastric irritation. Do not crush or chew. 1435 (Given - Provider: Simone Leonardo) 0828 (Given - Provider: Char Acuña RN) 0911 (Given - Provider: Char Acuña RN) predniSONE (Deltasone) tablet 10 mg (COMPLETED)(Linked Group 1) 10 mg, Oral, Daily, First dose on Sara 02/10/24 at 0900, For 2 doses 0935 (Given - Provider: Simone Leonardo) predniSONE (Deltasone) tablet 5 mg (COMPLETED)(Linked Group 1) 5 mg, Oral, Daily, First dose on 02/12/24 at 0900, For 2 doses 0828 (Given - Provider: Char Acuña RN) 0900 (Given - Provider: Char Acuña RN) sodium chloride 0.9% (NS) flush 5-40 mL (CANCELED) 5-40 mL, IntraCATHeter, Every 8 hours, First dose on 01/29/24 at 1630, For Line Patency: Peripheral IV = 5 mL; Midline or Central Line = 10 mL/lumen. If following IV push medication, administer flush at same rate as the IV push. Flush volume is determined by type of infusion therapy being given. For non-viscous solutions use: Peripheral IV = 5 mL Midline or Central Line = 10 mL/lumen For viscous solutions (i.e. blood components, parenteral nutrition, contrast media, or after obtaining blood sample) use: Peripheral IV = 10 mL Midline or Central Line = 20 mL/lumen 0030 (Not Given - Provider: Bob Cano RN - Reason: Other)0940 (Given - Provider: Simone Leonardo)1630 (Not Given - Provider: Simone Leonardo - Reason: Other - Comment: right ij is removed per doc order) 0030 (Not Given - Provider: Emily Taylor RN - Reason: Loss of IV access)0830 (Not Given - Provider: Char Acuña RN - Reason: Order parameters not met) tiotropium (Spiriva Respimat) 2.5 MCG/ACT inhaler 2 puff 2 puff, Inhalation, Daily, First dose on 02/06/24 at 0945, Instruct to hold breath for 10 seconds after each inhalation. Before first use, prime inhaler by actuating until aerosal cloud is seen, then actuating 3 more times. 0939 (Given - Provider: Simone Leonardo) 0829 (Given - Provider: Char Acuña RN) 0912 (Given - Provider: Char Acuña, FINESSE) PRN Medication Order 02/11/2024 02/12/2024 02/13/2024 Acetaminophen (Tylenol) 650 MG/20.3ML solution 650 mg(Linked Group 2) 650 mg, Oral, Every 4 hours PRN, mild pain (1-3), Starting on 01/29/24 at 0859, Give oral liquid if patient prefers or per feeding tube if present. If inadequate response within 60 minutes, proceed to next-line agent for same PRN reason or contact provider if no further options ordered. 0408 (See Alternative - Provider: Bob Cano RN) 0608 (See Alternative - Provider: Emily Taylor, FINESSE)1710 (Given - Provider: Char Acuña RN) acetaminophen (Tylenol) suppository 650 mg(Linked Group 2) 650 mg, Rectal, Every 4 hours PRN, mild pain (1-3), Starting on 01/29/24 at 0859, Give AZ if unable to administer by mouth or feeding tube. If inadequate response within 60 minutes, proceed to next-line agent for same PRN reason or contact provider if no further options ordered. 0408 (See Alternative - Provider: Bob Cano RN) 0608 (See Alternative - Provider: Emily Taylor RN)1710 (See Alternative - Provider: Char Acuña RN) acetaminophen (Tylenol) tablet 650 mg(Linked Group 2) 650 mg, Oral, Every 4 hours PRN, mild pain (1-3), Starting on 01/29/24 at 0859, If inadequate response within 60 minutes, proceed to next-line agent for same PRN reason or contact provider if no further options ordered. 0408 (Given - Provider: Bob Cano RN) 0608 (Given - Provider: Emily Taylor RN - Comment: armband does not scan)1710 (See Alternative - Provider: Char Acuña RN) alteplase (Cathflo Activase) 2 mg in sterile water 2 mL injection 2 mg, IntraCATHeter, As needed, line care, Starting on Wed02/07/24 at 2053, For occluded catheter ports. Instill 2 mg into each port, and retain for 0.5 - 2 hours. May repeat if catheter remains occluded. Dilute each 2 mg vial with 2.2 mL sterile water to give 1 mg/mL final concentration. Swirl gently to mix; do not shake. guaiFENesin (Robitussin) 100 MG/5ML liquid 200 mg 200 mg, Oral, Every 4 hours PRN, cough, Starting on 02/07/24 at 1853 2333 (Given - Provider: Emily Taylor, FINESSE) hydrOXYzine pamoate (Vistaril) capsule 25 mg 25 mg, Oral, Every 8 hours PRN, anxiety, Starting on Wed02/04/24 at 1459 0301 (Given - Provider: Morgan Villafuerte RN)1116 (Given - Provider: Elizabeth Salazar, RN) 0351 (Given - Provider: Emily Taylor RN - Comment: arm band will not scan)1710 (Given - Provider: Char Acuña, FINESSE) 0911 (Given - Provider: Char Acuña, FINESSE) traZODone (Desyrel) tablet 50 mg 50 mg, Oral, Nightly PRN, sleep, Starting on Wed02/04/24 at 1441 2333 (Given - Provider: Emily Taylor RN) 0035 (Given - Provider: Adrian Sethi, RN) zolpidem (Ambien) tablet 2.5 mg 2.5 mg, Oral, Nightly PRN, sleep, Starting on Wed02/11/24 at 1152 2049 (Given - Provider: Emily Taylor RN) Linked Groups Order Group 1: predniSONE (Deltasone) tablet 40 mg (COMPLETED) 40 mg, Oral, Daily, First dose on Wed02/04/24 at 0900, For 2 doses Followed by predniSONE (Deltasone) tablet 30 mg (COMPLETED) 30 mg, Oral, Daily, First dose on Wed02/06/24 at 0900, For 2 doses Followed by predniSONE (Deltasone) tablet 20 mg (COMPLETED) 20 mg, Oral, Daily, First dose on Wed02/08/24 at 0900, For 2 doses Followed by predniSONE (Deltasone) tablet 10 mg (COMPLETED)Jump to med 10 mg, Oral, Daily, First dose on Sara 02/10/24 at 0900, For 2 doses Followed by predniSONE (Deltasone) tablet 5 mg (COMPLETED)Jump to med 5 mg, Oral, Daily, First dose on Wed02/12/24 at 0900, For 2 doses Group 2: acetaminophen (Tylenol) tablet 650 mgJump to med 650 mg, Oral, Every 4 hours PRN, mild pain (1-3), Starting on 7/27/24 at 0859, If inadequate response within 60 minutes, proceed to next-line agent for same PRN reason or contact provider if no further options ordered. Or Acetaminophen (Tylenol) 650 MG/20.3ML solution 650 mgJump to med 650 mg, Oral, Every 4 hours PRN, mild pain (1-3), Starting on 01/29/24 at 0859, Give oral liquid if patient prefers or per feeding tube if present. If inadequate response within 60 minutes, proceed to next-line agent for same PRN reason or contact provider if no further options ordered. Or acetaminophen (Tylenol) suppository 650 mgJump to med 650 mg, Rectal, Every 4 hours PRN, mild pain (1-3), Starting on 01/29/24 at 0859, Give AZ if unable to administer by mouth or feeding tube. If inadequate response within 60 minutes, proceed to next-line agent for same PRN reason or contact provider if no further options ordered. Care Team (unrecognized sect ion and content) Care Team Personnel Name: JOY STAHL MD Member Role: Primary Care Physician Address: Address: [address] [place] [address] Care Team Related Persons Name: DEX PATRICIA FOR RECORDS PERTAINING TO PATIENTS WHO ARE OR HAVE BEEN ENROLLED IN A CHEMICAL DEPENDENCY/SUBSTANCEABUSE PROGRAM, SOME INFORMATION MAY BE OMITTED. This clinical summary was aggregated from multiple sources. Caution should be exercised in using it in the provision of clinical care. This summary normalizes information from multiple sources, and as a consequence, information in this document may materially change the coding, format and clinical context of patient data. In addition, data may be omitted in some cases. CLINICAL DECISIONS SHOULD BE BASED ON THE PRIMARY CLINICAL RECORDS. [facility]. provides no warranty or guarantee of the accuracy or completeness of information in this document.
--- NOTE | 2024-03-03 23:43 | EKG12_ITS ---
Test Reason : SOB Blood Pressure : / mmHG Vent. Rate : 126 BPM Atrial Rate : 126 BPM P-R Int : 122 ms QRS Dur : 084 ms QT Int : 352 ms P-R-T Axes : 073 054 035 degrees QTc Int : 509 ms Sinus tachycardia with frequent and consecutive Premature ventricular complexes Possible Inferior infarct (cited on or before 09-NOV-2022) Abnormal ECG Confirmed by CARLYLE DICKERSON ([id number]), associate entertainment editor JUDY BE ([id number]) on 03/07/2024 8:22:47 AM Referred By: Confirmed By:CARLYLE DICKERSON
[2024-03-04] VITALS (61 sets, daily range): BP systolic 62–165; BP diastolic 28–103; PULSE 53–118; RESP 12–36; TEMP 36.2–39.4; O2SAT 94–100; BMI 23.1
[2024-03-04] MEDS: Ipratropium/Albuterol Sulfate 3 ML AMPUL.NEB INHALATION ×4 (00:01→19:39)
[2024-03-04 00:22] LABS: Allen Test Positive; Base Excess 11 mmol/L (-2 to +2); Bicarbonate 34.9 mmol/L (22-26); Blood Gas Specimen Type ART; Mode Not entered; O2 Delivery Device Cannula; PO2 54 mmHG (75-100); SITE R Radial; SO2 89 % (95-99); Total Carbon Dioxide 36 mmol/L; pH 7.46 (7.35-7.45)
[2024-03-04] MEDS: 0.9% Normal Saline (1000mL) 1,000 ML 80 ML IV ×2 (00:38→15:09)
--- NOTE | 2024-03-04 00:39 | EX.ED.DYSGE1 ---
HPI History of Present Illness Chief Complaint: Shortness of Breath Informant: patient, family and EMS Narrative Narrative: 68-year-old female was discharged from the hospital earlier today, she was admitted for about 3 or 4 days for a COPD exacerbation. The daughter states she had a brought back because she is confused and seems delirious. She was saying that her leg was swollen and it is not. She was calling her daughter and another family members and hanging up and say nothing. She was speaking nonsensically. She states is very unlike her, but somewhat similar to the way she presented when she first was admitted to the hospital. She states she usually is not confused. She has a tracheostomy. This has been there for several months because of a prolonged stay on a ventilator in [place] according to the daughter. There is some gummy discharge around it, the patient nor the daughter knows how long that has been there. The patient states she is having sputum production with her cough. Unknown how long that has been going on. [facility] Medical History Hypothyroidism Former smoker BiPAP (biphasic positive airway pressure) dependence On home oxygen therapy Asthma Seizures Stroke/cerebrovascular accident Noncompliance Diastolic CHF History of alcohol abuse Aspiration pneumonia due to gastric secretions Carcinoma in situ of breast Benign neoplasm of colon Takotsubo cardiomyopathy (06/17/21) Ischemic cerebrovascular accident (CVA) (02/06/17) Non-rheumatic mitral regurgitation Anxiety and depression Non-ischemic cardiomyopathy Essential (primary) hypertension Secondary pulmonary arterial hypertension Chronic anemia GERD (gastroesophageal reflux disease) TIO (obstructive sleep apnea) History of non-ST elevation myocardial infarction (NSTEMI) (02/03/17) History of DVT of lower extremity (02/11/17) Insomnia Hyperlipidemia Daytime hypersomnia Hemorrhagic cerebrovascular accident (CVA) (02/09/17) COPD (chronic obstructive pulmonary disease) Home Medications ?Medication ?Instructions ?Recorded ?Last Taken ?Type cholecalciferol (vitamin D3) 25 25 mcg PO DAILY supplement 11/03/20 Unknown History mcg (1,000 unit) tablet (Vitamin D3) pantoprazole 40 mg tablet,delayed 40 mg PO DAILY GERD 11/03/20 11/15/23 History release (Protonix) aripiprazole 2 mg tablet (Abilify) 2 mg PO .daily [facility] mental health / 08/25/22 11/15/23 History sleep atorvastatin 40 mg tablet 40 mg PO QHS cholesterol 08/25/22 11/15/23 History metoprolol succinate 25 mg 25 mg PO DAILY blood pressure 08/25/22 11/15/23 History tablet,extended release 24 hr phenytoin 100 mg/4 mL oral 100 mg (4 mL) PO Q8 seizures 30 10/12/22 Unknown Rx suspension days #360 mL duloxetine 30 mg capsule,delayed 30 mg PO DAILY mental health 11/11/22 11/15/23 History release furosemide 20 mg tablet 20 mg PO BIDCM diuretic 11/11/22 11/15/23 History mirtazapine 7.5 mg tablet 7.5 mg PO QHS mental health #30 11/11/22 11/14/23 Rx tabs albuterol sulfate 2.5 mg/3 mL 2.5 mg (3 mL) inhalation Q2H PRN 06/30/23 11/15/23 Rx (0.083 %) solution for nebulization PRN Dyspnea, wheezing #180 mL albuterol sulfate 90 mcg/actuation 2 inh inhalation Q4H breathing 06/30/23 11/15/23 Rx aerosol inhaler #8.5 grams fluticasone fur. 100 mcg-umeclid 1 inh inhalation DAILY breathing 06/30/23 11/15/23 Rx 62.5 mcg-vilant 25 mcg 30 days #60 ea inhalat.powder (Trelegy Ellipta) nystatin 100,000 unit/mL oral 5 ml mucous membrane TID 06/30/23 11/15/23 Rx suspension inflammation #250 mL aspirin 81 mg tablet,delayed 81 mg PO DAILY heart health 11/15/23 11/15/23 History release (Adult Aspirin Regimen) escitalopram oxalate 20 mg tablet 20 mg PO DAILY mental health 11/15/23 11/15/23 History hydroxyzine pamoate 25 mg capsule 25 mg PO TID allergies 11/15/23 11/15/23 History ipratropium 0.5 mg-albuterol 3 mg 3 ml inhalation Q6H breathting 11/15/23 11/15/23 History (2.5 mg base)/3 mL nebulization soln zolpidem 10 mg tablet 10 mg PO QHS PRN insomnia 11/15/23 11/14/23 History acetaminophen 325 mg tablet 650 mg (2 x 325 mg) PO Q4H PRN PRN 11/18/23 Unknown Rx Fever, pain 1-1010 #0 tabs dextromethorphan-guaifenesin 30 2 tab PO BID cough 7 days #28 tabs 11/18/23 Unknown Rx mg-600 mg tablet extended [id number] hr (Mucinex DM) sennosides 8.6 mg-docusate sodium 2 tab PO BID PRN PRN Constipation 11/18/23 Unknown Rx 50 mg tablet (Stool #0 tabs Softener-Stimulant Laxative) potassium chloride 20 mEq 20 meq PO BID supplement 01/28/24 Unknown History tablet,extended release(part/cryst) (Klor-Con M) amoxicillin 875 mg-potassium 1 tab PO BIDCM #7 tabs 03/03/24 Unknown Rx clavulanate 125 mg tablet prednisone 10 mg tablet 10 mg PO DAILY #30 tabs 03/03/24 Unknown Rx Allergy/AdvReac Type Severity Reaction Status Date / Time tetanus and diphtheria Allergy Hives Verified 03/03/24 23:11 toxoids (tetanus & diphtheria toxoids) Family History Sister Cancer lung Father Cancer lung Mother Cancer lung Surgical History S/P emergency tracheotomy for assistance in breathing History of tracheostomy S/P percutaneous endoscopic gastrostomy (PEG) tube placement History of left heart catheterization (06/17/21) History of bilateral cataract extraction Hx of appendectomy H/O: section History of lumpectomy History of cholecystectomy Social History household members: spouse Smoking Status: Former smoker how long ago did patient quit smokin, 1pk/day second hand exposure: Yes alcohol intake: former substance use type: does not use what type of physical activity do you participate in: walking frequency: daily ROS ROS ED Review of Systems ROS Unobtainable: other Details: Limited due to confusion Constitutional Constitutional ED: Denies chills or fever(s) Eyes Eyes: Denies change in vision or diplopia ENT ENT ED: Denies sore throat Cardiovascular Cardiovascular: Denies chest pain or palpitations Respiratory/Chest Respiratory/Chest: Reports cough, dyspnea, dyspnea on exertion, sputum and other Details: Patient states her breathing is doing pretty well right now relative to usual Gastrointestinal Gastrointestinal: Denies abdominal pain, diarrhea, nausea or vomiting Genitourinary Genitourinary ED: Denies dysuria or hematuria Musculoskeletal Musculoskeletal: Denies back pain or neck pain Integumentary Denies abscess or rash Neurologic Neurologic: Reports as per HPI and confusion; Denies headache(s), paresthesias or weakness EXAM Physical Exam Const Vital Signs: 03/03/24 23:11 03/03/24 23:14 03/03/24 23:14 Temperature 103 F H 103 F H Temperature Source Oral Oral Pulse Rate 126 H 129 H Respiratory Rate 36 H 37 H Respiratory Effort Short of Breath Accessory Muscle Use Respiratory Depth Shallow Respiratory Pattern Tachypnea Blood Pressure 104/53 L 104/53 L Blood Pressure Mean 70 70 Pulse Ox 95 95 Oxygen Delivery Method Nasal Cannula Nasal Cannula Nasal Cannula Oxygen Flow Rate (L/min) 4 4 5 03/04/24 00:03 03/04/24 00:14 03/04/24 00:30 Temperature 103 F H Temperature Source Oral Pulse Rate 118 H 113 H Respiratory Rate 34 H 36 H Respiratory Effort Respiratory Depth Respiratory Pattern Tachypnea Blood Pressure 99/59 L Blood Pressure Mean 72 Pulse Ox 95 Oxygen Delivery Method Nasal Cannula Nasal Cannula Oxygen Flow Rate (L/min) 4 4 03/04/24 01:00 03/04/24 01:36 Temperature 99.8 F H 99.8 F H Temperature Source Oral Pulse Rate 101 H 98 Respiratory Rate 25 H 20 H Respiratory Effort Respiratory Depth Respiratory Pattern Blood Pressure 96/44 L 88/42 L Blood Pressure Mean 61 57 Pulse Ox 98 96 Oxygen Delivery Method Nasal Cannula Oxygen Flow Rate (L/min) 4 Positive well nourished and well developed General Appearance ED: well developed and NAD HEENT Reports moist mucous membranes normocephalic and atraumatic Eyes PERRL and EOMs intact bilaterally Neck full ROM and supple Neck Narrative: Tracheostomy in place. It is capped. She has a nasal cannula on. There is some thick gummy discharge around the trach site but not actively emanating from it. There is no erythema or tenderness. Resp Resp Narrative: Tachypneic but in no distress. Diffuse expiratory wheezes and diminished severely, trachea midline equal breath sounds bilaterally. Cardio regular rate and regular rhythm Cardio Narrative: Systolic soft murmur GI non-tender and non-distended Auscultation: normoactive bowel sounds Palpation: soft Back/Spine no CVA tenderness General Back: other FROM Extremity normal to inspection General Extremety ED: Negative for edema, pulses abnormal or tenderness General Extremity: Negative for edema or pulses abnormal Neuro CN's II-XII intact bilaterally and no sensory deficits noted Neuro Narrative: Disoriented to time including month, date, year. She knows the president and states she does not care for him. She is oriented to person and place. Sensorium / Orientation: awake, alert and orientation impaired Motor Exam: general weakness Psych Psych Narrative: Responds appropriately to questions. Is not outwardly acting delusional at this time or hallucinating. Skin no rashes or lesions noted and no wounds Sepsis Attestation Sepsis Alert: Yes Sepsis Attestation: Agree w/Sepsis Date exam was performed: 03/04/24 Time exam was performed: 02:00 Possible Source of Sepsis: Pulmonary Sepsis Organ Dysfunction Criteria Present: SBP < 90 mmHg or MAP < 65 mmHg and New/Unexplained change in mental status Fluid Resuscitation Fluid resuscitation indicated?: Yes Fluid Resuscitation ordered: 30 ml/kg fluid bolus ordered MDM MDM MDM Narrative Medical decision making narrative: Patient was discharged earlier today on Augmentin. 1 view chest x-ray my interpretation shows a right upper lobe infiltrate, this is new compared with her prior x-ray from a couple days ago on my interpretation. Therefore I am treating her with Zosyn and vancomycin, and given her confusional state plan is for admission. Septic workup ordered and obtained an ABG to evaluate for hypercapnia as cause of her encephalopathy, her ABG looks good without acute hypercapnia with a pH of 7.46 and pCO2 of 49 with elevated bicarb indicating chronic CO2 retention. She is given a duo nebulizer and some fluids but her blood pressure and other vital signs are relatively stable. She developed a temperature of 103 here which have given her Tylenol for. Her white count returns at 31. I spoke with hospitalist for admission and we initially agreed to PCU but while the patient was still in the emergency department, her pressure started dropping, so I ordered a 30 cc/kg IV fluid bolus, and spoke with the hospitalist and we both agreed to change her disposition to the ICU. She did not finish the fluid bolus in the ER and went to the ICU, where sepsis reevaluation will take place. History & Record Review Additional record(s) reviewed:: Prior inpatient record Lab Data Attestation: I reviewed the patient's lab results. Labs: Laboratory Results - last 24 hr 03/04/24 03/04/24 03/04/24 00:04 00:30 02:05 WBC 30.8 H* RBC 3.50 L Hgb 9.5 L Hct 32.1 L MCV 91.7 MCH 27.1 MCHC 29.6 L RDW Std Deviation 53.1 H RDW Coeff of Deonte 15.9 H Plt Count 208 MPV 10.7 Immature Gran % (Auto) 1.800 H Neut % (Auto) 83.7 H Lymph % (Auto) 5.4 L Ada % (Auto) 8.8 Eos % (Auto) 0.0 Baso % (Auto) 0.3 Absolute Neuts (auto) 25.8 H Absolute Lymphs (auto) 1.67 Nucleated RBC % 0 Diff Path Review May foll Sodium 137 Potassium 3.9 Chloride 98 Carbon Dioxide 38.0 H Anion Gap 1 L BUN 22 H Creatinine 0.88 Estim Creat Clear Calc 49.91 Est GFR (MDRD) Af Amer 82 Est GFR (MDRD) Non-Af 68 BUN/Creatinine Ratio 25.0 H Glucose 120 H Lactic Acid 0.9 Calcium 9.0 Troponin I High Sens 71 H B-Natriuretic Peptide 557.4 H TSH 1.720 ABG Data ABG results: ABG 03/04/24 00:18 Specimen Type ART Sample Site R Radial pH 7.46 H Bicarbonate Actual 34.9 H Total CO2 36 Base Excess 11 H O2 Saturation 89 L O2 % 4.0 ABG pCO2 49.0 H ABG pO2 54 L Royal Test Positive O2 Delivery Device Cannula Vent Mode Not entered Radiography Diagnostic Testing: Clinical Impression(s) from Imaging Studies Chest X-Ray 03/03/24 00:35 IMPRESSION: Interval development of patchy right upper lobe pneumonia. Electronically Signed: Rusty Rodriguez MD at 1:43 EDT , Rhythm Strip Rhythm Strip: Sinus Tach Rate: 105 Ectopy: PVC(s) EKG Initial EKG: Attestation: I personally reviewed and interpreted this EKG as follows: Interpretation: No Acute Injury Pattern, Sinus Tachycardia and Non-Specific ST Changes Management Discussion w/another healthcare provider: Hospitalist Discharge Plan Dx/Rx/DC Orders Clinical Impression: Acute encephalopathy, HAP (hospital-acquired pneumonia), Acute exacerbation of chronic obstructive pulmonary disease (COPD), Failure of outpatient treatment Disposition Disposition: Acute Care Hospital [facility] Discharge Date/Time: 03/04/24 02:50
[2024-03-04] MEDS: Acetaminophen 500 MG Tablet 1000 MG PO (00:41)
[2024-03-04 00:46] LABS: Absolute Lymphocyte Count 1.67 X10^3/uL (0.83-4.51); Absolute Neutrophil Count 25.8 X10^3/uL (2.0-7.7); Basophil# 0.08 X10^3/uL; Basophil% 0.3 % (0-1); Hematocrit 32.1 % (37-47); Hemoglobin 9.5 g/dL (12.0-15.0); Lymphocyte # 1.67 X10^3/ul (0.83-4.51); Lymphocyte % 5.4 % (19-41); Mean Corp Hgb Conc 29.6 g/dL (32-36); Mean Corpuscular Hgb 27.1 pg (27.0-32.0); Mean Corpuscular Volume 91.7 fL (81-99); Mean Platelet Vol. 10.7 fl (6.2-12.0); Monocyte# 2.71 X10^3/uL; Monocyte% 8.8 % (0-10); NRBC Flagged by Analyzer 0 % (0-5); Neutrophil # 25.82 X10^3/uL (2.7-7.7); Neutrophil % 83.7 % (47-70); POSITIVE COUNT YES; POSITIVE DIFFERENTIAL YES; Platelet Count 208 K/mm3 (150-450); RBC Distribution Width CV 15.9 % (11.6-14.6); RBC Distribution Width SD 53.1 fl (35.1-43.9)
[2024-03-04 01:03] LABS: Differential Indicated SCAN CRITERIA MET; White Blood Count 30.8 K/mm3 (4.4-11.0)
--- NOTE | 2024-03-04 01:06 | PCM.HP.STD ---
[facility] - General General Date of Admission: 03/04/24 Date of Service: 03/04/24 Chief Complaint: Fever, AMS, Worsening SOB and cough. 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) and TIA (2019); with previous tracheostomy and PEG tube on chronic be ASA and statin, seizure disorder; on phenytoin, history of RLE DVT, history of systolic CHF attributed to Takotsubo's cardiomyopathy (2020); with subsequent echocardiogram showing LVEF 55% (10/2022), history of nonrheumatic mitral regurgitation, history of secondary pulmonary hypertension, history of normochromic normocytic anemia, history of EtOH abuse, history of medical noncompliance, depression with anxiety, GERD and recent admission here from March 01, 2024 to March 03, 2024 for treatment of AE COPD with rsqru-ut-ssyfyhc hypoxic and hypercapnic respiratory failure with mildly elevated troponin of 109 pg/mL attributed to acute cardiac strain who re-presents to [facility] ER complaining of altered mental status and worsening SOB with cough. Ms. Mayes is not a fully-reliable historian at this time so information was gathered from chart, medical staff and computer. According to the records this patient was discharged from here a few hours ago with her daughter she was gorked out of her mind with significant confusion as she claimed her mother was randomly calling multiple family members and then would not say anything and hang up. The daughter went on to state this was very much out of character for her mother to act in this delirious manner and speak nonsensically. She also noticed a congested cough with sputum production along with a gummy discharge from around her (capped) tracheostomy site. There is no report nausea, vomiting, diarrhea, constipation, chest pain or diaphoresis but she was noted to have a fever of 103 ?F shortly after arrival. In the ER she was noted to have CXR evidence of RUL infiltrate consistent with Nosocomial Pneumonia that is suspected to be due to aspiration complicated by Mayum-je-Jyyapht Hypoxic Respiratory Insufficiency compounded by clinical evidence of Acute Metabolic Encephalopathy after having been recently discharged and she was then admitted to the PCU for ongoing care for a stay that is expected to extend beyond 2 midnights. [facility] Medical History Hypothyroidism Former smoker BiPAP (biphasic positive airway pressure) dependence On home oxygen therapy Asthma Seizures Stroke/cerebrovascular accident Noncompliance Diastolic CHF History of alcohol abuse Aspiration pneumonia due to gastric secretions Carcinoma in situ of breast Benign neoplasm of colon Takotsubo cardiomyopathy (06/17/21) Ischemic cerebrovascular accident (CVA) (02/06/17) Non-rheumatic mitral regurgitation Anxiety and depression Non-ischemic cardiomyopathy Essential (primary) hypertension Secondary pulmonary arterial hypertension Chronic anemia GERD (gastroesophageal reflux disease) TIO (obstructive sleep apnea) History of non-ST elevation myocardial infarction (NSTEMI) (02/03/17) History of DVT of lower extremity (02/11/17) Insomnia Hyperlipidemia Daytime hypersomnia Hemorrhagic cerebrovascular accident (CVA) (02/09/17) COPD (chronic obstructive pulmonary disease) Home Medications ?Medication ?Instructions ?Recorded ?Last Taken ?Type cholecalciferol (vitamin D3) 25 25 mcg PO DAILY supplement 11/03/20 Unknown History mcg (1,000 unit) tablet (Vitamin D3) pantoprazole 40 mg tablet,delayed 40 mg PO DAILY GERD 11/03/20 11/15/23 History release (Protonix) aripiprazole 2 mg tablet (Abilify) 2 mg PO .daily QHS mental health / 08/25/22 11/15/23 History sleep atorvastatin 40 mg tablet 40 mg PO QHS cholesterol 08/25/22 11/15/23 History metoprolol succinate 25 mg 25 mg PO DAILY blood pressure 08/25/22 11/15/23 History tablet,extended release 24 hr phenytoin 100 mg/4 mL oral 100 mg (4 mL) PO Q8 seizures 30 10/12/22 Unknown Rx suspension days #360 mL duloxetine 30 mg capsule,delayed 30 mg PO DAILY mental health 11/11/22 11/15/23 History release furosemide 20 mg tablet 20 mg PO BIDCM diuretic 11/11/22 11/15/23 History mirtazapine 7.5 mg tablet 7.5 mg PO QHS mental health #30 11/11/22 11/14/23 Rx tabs albuterol sulfate 2.5 mg/3 mL 2.5 mg (3 mL) inhalation Q2H PRN 06/30/23 11/15/23 Rx (0.083 %) solution for nebulization PRN Dyspnea, wheezing #180 mL albuterol sulfate 90 mcg/actuation 2 inh inhalation Q4H breathing 06/30/23 11/15/23 Rx aerosol inhaler #8.5 grams fluticasone fur. 100 mcg-umeclid 1 inh inhalation DAILY breathing 06/30/23 11/15/23 Rx 62.5 mcg-vilant 25 mcg 30 days #60 ea inhalat.powder (Trelegy Ellipta) nystatin 100,000 unit/mL oral 5 ml mucous membrane TID 06/30/23 11/15/23 Rx suspension inflammation #250 mL aspirin 81 mg tablet,delayed 81 mg PO DAILY heart health 11/15/23 11/15/23 History release (Adult Aspirin Regimen) escitalopram oxalate 20 mg tablet 20 mg PO DAILY mental health 11/15/23 11/15/23 History hydroxyzine pamoate 25 mg capsule 25 mg PO TID allergies 11/15/23 11/15/23 History ipratropium 0.5 mg-albuterol 3 mg 3 ml inhalation Q6H breathting 11/15/23 11/15/23 History (2.5 mg base)/3 mL nebulization soln zolpidem 10 mg tablet 10 mg PO QHS PRN insomnia 11/15/23 11/14/23 History acetaminophen 325 mg tablet 650 mg (2 x 325 mg) PO Q4H PRN PRN 11/18/23 Unknown Rx Fever, pain 1-10 #0 tabs dextromethorphan-guaifenesin 30 2 tab PO BID cough 7 days #28 tabs 11/18/23 Unknown Rx mg-600 mg tablet extended [id number] hr (Mucinex DM) sennosides 8.6 mg-docusate sodium 2 tab PO BID PRN PRN Constipation 11/18/23 Unknown Rx 50 mg tablet (Stool #0 tabs Softener-Stimulant Laxative) potassium chloride 20 mEq 20 meq PO BID supplement 01/28/24 Unknown History tablet,extended release(part/cryst) (Klor-Con M) amoxicillin 875 mg-potassium 1 tab PO BIDCM #7 tabs 03/03/24 Unknown Rx clavulanate 125 mg tablet prednisone 10 mg tablet 10 mg PO DAILY #30 tabs 03/03/24 Unknown Rx Allergy/AdvReac Type Severity Reaction Status Date / Time tetanus and diphtheria Allergy Hives Verified 03/03/24 23:11 toxoids (tetanus & diphtheria toxoids) Family History Sister Cancer lung Father Cancer lung Mother Cancer lung Surgical History S/P emergency tracheotomy for assistance in breathing History of tracheostomy S/P percutaneous endoscopic gastrostomy (PEG) tube placement History of left heart catheterization (06/17/21) History of bilateral cataract extraction Hx of appendectomy H/O: section History of lumpectomy History of cholecystectomy Social History household members: spouse Smoking Status: Former smoker how long ago did patient quit smokin, 1pk/day second hand exposure: Yes alcohol intake: former substance use type: does not use what type of physical activity do you participate in: walking frequency: daily ROS ROS Narrative Full review of systems was not possible at this time due to patient's severe metabolic encephalopathy and increased work of breathing. Vital Signs Vital Signs Vital Signs: 03/03/24 23:11 03/03/24 23:14 03/03/24 23:14 Temperature 103 F H 103 F H Temperature Source Oral Oral Pulse Rate 126 H 129 H Respiratory Rate 36 H 37 H Respiratory Effort Short of Breath Accessory Muscle Use Respiratory Depth Shallow Respiratory Pattern Tachypnea Blood Pressure 104/53 L 104/53 L Blood Pressure Mean 70 70 Pulse Ox 95 95 Oxygen Delivery Method Nasal Cannula Nasal Cannula Nasal Cannula Oxygen Flow Rate (L/min) 4 4 5 03/04/24 00:03 03/04/24 00:14 03/04/24 00:30 Temperature 103 F H Temperature Source Oral Pulse Rate 118 H 113 H Respiratory Rate 34 H 36 H Respiratory Effort Respiratory Depth Respiratory Pattern Tachypnea Blood Pressure 99/59 L Blood Pressure Mean 72 Pulse Ox 95 Oxygen Delivery Method Nasal Cannula Nasal Cannula Oxygen Flow Rate (L/min) 4 4 Weight Weight: 132 lb 7.965 oz Body Mass Index (BMI) 23.4 Physical Exam Const alert and average body habitus Constitutional Narrative: Gism-wf-mgjydlnh respiratory distress noted with obvious confusion. General Appearance: cooperative Orientation / Consciousness: confused HEENT normocephalic, head/scalp atraumatic, hearing grossly normal bilaterally and moist oral mucous membranes Eyes PERRL and EOMs intact bilaterally Neck no lymphadenopathy and supple Resp Resp Narrative: Diffuse inspiratory and expiratory wheezes with diminished breath sounds throughout bilaterally. Auscultation: wheezes Cardio regular rate and regular rhythm GI normal to inspection, nondistended, normoactive bowel sounds, soft to palpation, non-tender and non-distended Extremity normal to inspection and full ROM Neuro CN's II-XII intact bilaterally, moves all extremities and no focal motor deficits Sensorium / Orientation: awake, alert, oriented to person and oriented to place Speech: speech normal Psych affect normal Results Medical Records Data Attestation: I reviewed the patient's medical records Lab / Micro Data Attestation: I reviewed the patient's lab results. 03/04/24 00:04 03/04/24 00:30 Labs: Laboratory Results - last 24 hr 03/04/24 00:04: RBC 3.50 L, Hgb 9.5 L, Hct 32.1 L, MCV 91.7, MCH 27.1, MCHC 29.6 L, RDW Std Deviation 53.1 H, RDW Coeff of Deonte 15.9 H, Plt Count 208, MPV 10.7, Immature Gran % (Auto) 1.800 H, Neut % (Auto) 83.7 H, Lymph % (Auto) 5.4 L, Sweet [place] % (Auto) 8.8, Eos % (Auto) 0.0, Baso % (Auto) 0.3, Absolute Neuts (auto) 25.8 H, Absolute Lymphs (auto) 1.67, Nucleated RBC % 0 ABG Data ABG results: ABG 03/04/24 00:18 Specimen Type ART Sample Site R Radial pH 7.46 H Bicarbonate Actual 34.9 H Total CO2 36 Base Excess 11 H O2 Saturation 89 L O2 % 4.0 ABG pCO2 49.0 H ABG pO2 54 L Royal Test Positive O2 Delivery Device Cannula Vent Mode Not entered Rhythm Strip Rhythm Strip: Sinus Tach Rate: 105 Ectopy: PVC(s) Imaging [facility] Imaging Services [address] [place] [id number] Chest 1 View (Portable) MR#: [id number] Acct: [id number] Name: MARCO MAYES Rep #: [id number] : 1955 F 68 From: Rusty Rodriguez MD PCP: Dr. Maryam Pineda MD Status: REG ER Study: Chest 1 View (Portable) Date of Exam: 03/03/24 Exam# [id number] Ordering Dr: Yunior Alanis MD EXAM: XR CHEST, 1 VIEW CLINICAL INDICATION: sob TECHNIQUE: Frontal view of the chest. COMPARISON: Previous chest radiographs of 03/01/2024 and 01/28/2024. FINDINGS: LUNGS AND PLEURAL SPACES: Lungs remain hyperinflated. Since the study of 3 days ago, an approximately 4 cm diameter rounded area of airspace disease has developed laterally within the right upper lobe, indicating pneumonia. No acute infiltrates on the left. No pleural effusion. No pneumothorax. HEART: Unremarkable. Cardiac silhouette not enlarged. Normal pulmonary vasculature. MEDIASTINUM: Central airways and mediastinal contour are unremarkable. BONES/JOINTS: No acute osseous abnormality. SOFT TISSUES: Vascular calcification is present within the neck. TUBES, LINES AND DEVICES: Tracheostomy tube remains in place. RAD/Chest 1 View (Portable) IMPRESSION: Interval development of patchy right upper lobe pneumonia. Electronically Signed: Rusty Rodriguez MD at 1:43 EDT , CC: Dr. Yunior Alanis MD; Dr. Maryam Pineda MD ~ Seed Buyer: Signed Assessment & Plan Assessment/Plan (1) Sepsis: QUALIFIERS: Sepsis acute organ dysfunction status: with acute organ dysfunction Sepsis type: sepsis due to unspecified organism Severe sepsis acute organ dysfunction type: encephalopathy Severe sepsis shock status: without septic shock Qualified Code(s): A41.9 - Sepsis, unspecified organism; R65.20 - Severe sepsis without septic shock; G93.41 - Metabolic encephalopathy (2) HAP (hospital-acquired pneumonia): (3) Acute exacerbation of chronic obstructive pulmonary disease (COPD): (4) Acute encephalopathy: (5) Failure of outpatient treatment: (6) Elevated troponin: (7) History of non-ST elevation myocardial infarction (NSTEMI): (8) Ischemic cerebrovascular accident (CVA): PLAN: Plan 1. RUL infiltrate consistent with Nosocomial Pneumonia that is suspected to be due to aspiration with fever of 103 degrees Fahrenheit and Leukocytosis of 30.8K all present on admission concerning for Sepsis - Admit to PCU. Continue empiric IV vancomycin and IV Zosyn and await culture and sensitivity data. Give Toradol IV as needed pain or fever. PICC line placement ordered for the AM. 2. AE asthma/COPD attributable to #1 - Wean steroids and nebulizers as tolerated. 3. Juklp-zm-Yaahwqd Hypoxic Respiratory Insufficiency due to #1 & #2 - Wean supplemental oxygen as tolerated. 4. Acute metabolic encephalopathy arising from #1 -#3 - Check UDS, CRISTIAN and TSH to evaluate for potentially reversible causes of confusion. Minimize OPTICAL EFFECTS LINE UP PERSON-active medications to allow sensorium to clear. Otherwise, continue supportive care as outlined above and monitor for improvement. 5. Recent admission here from March 01, 2024 to March 03, 2024 for treatment of AE COPD with ebruo-pt-utvtmtl hypoxic and hypercapnic respiratory failure with mildly elevated troponin of 109 pg/mL attributed to acute cardiac strain in the setting of known secondary pulmonary hypertension - Noted with failure of outpatient antibiotic treatment adding to the complexity of #1 - #4. 6. Obstructive sleep apnea; on BiPAP - Resume nocturnal BiPAP once above her acute respiratory issues have improved with hypercarbia noted on admission ABG. 7. History of extensive bilateral likely embolic ischemic CVA (2016) and TIA (2019); with previous tracheostomy and PEG tube on chronic be ASA and statin - Noted. Continue current regimen. 8. Seizure disorder; on phenytoin - Check phenytoin level and then restart at previous dose if in therapeutic range. Give IV Ativan as needed for breakthrough seizure activity. 9. Essential hypertension - Hold scheduled antihypertensives until infection outlined #1 is well-controlled. Give IV hydralazine as needed for systolic blood pressure greater than 160 mmHg. 10. Hyperlipidemia - Continue statin. 11. Hypothyroidism - Restart Synthroid as previous and check TSH. 12. History of tobacco abuse (quit ~2004); with subsequent asthma/COPD - Noted. 13. History of RLE DVT - Noted. 14. History of systolic CHF attributed to Takotsubo's cardiomyopathy (2020); with subsequent echocardiogram showing LVEF 55% (10/2022) - Noted. 15. History of nonrheumatic mitral regurgitation - Check echocardiogram to reevaluate status. 16. History of normochromic normocytic anemia - Stable with hemoglobin of 9.5 g/dL present on admission. 17. History of EtOH abuse - Noted with no record of recent EtOH abuse. CRISTIAN pending. 18. History of medical noncompliance - Noted. 19. Depression with anxiety - Resume home medications as previous. 20. GERD - Continue PPI. 21. DVT prophylaxis - Lovenox 40 mg sq daily plus SCD's. Total time: Approximately 75 minutes. Sepsis Attestation Sepsis Alert: Yes Sepsis Attestation: Agree w/Sepsis Date exam was performed: 03/04/24 Time exam was performed: 02:00 Possible Source of Sepsis: Pulmonary Sepsis Organ Dysfunction Criteria Present: SBP decrease of more than 40 mmHg and New/Unexplained change in mental status Fluid Resuscitation Fluid resuscitation indicated?: Yes Fluid Resuscitation ordered: 30 ml/kg fluid bolus ordered Amount of fluid ordered: 2 Reason for lesser fluid bolus:: Concern for fluid overload and Heart failure Sepsis Note Date exam was performed: 03/04/24 Time exam was performed: 06:00 Sepsis Attestation: Sepsis re-evaluation was performed Response to fluids: Fluid responsive hypotension
[2024-03-04] MEDS: Piperacil/Tazobactam 4.5 GM in 0.9% Normal Saline (100mL MB+) 100 ML IV (01:15)
[2024-03-04 01:18] LABS: Anion Gap 1 (5-15); BUN 22 mg/dL (7-18); Chloride 98 mmol/L (98-107); Creatinine, Serum 0.88 mg/dL (0.55-1.02); EST Glomerular Filtration Rate 68 mL/min (>60); Est Glom Filt Rate - Afr Amer 82 mL/min (>60); Estimated Creatinine Clearance 49.91 ml/min; Glucose 120 mg/dL (74-106); Lactic Acid 0.9 mmol/L (0.4-1.9); Potassium 3.9 mmol/L (3.5-5.1); Sodium Level 137 mmol/L (136-145); Troponin-I HS 71 pg/mL (3.0-54.0)
[2024-03-04 01:24] LABS: BNP,B-Type NATRIURETIC PEPTIDE 557.4 pg/mL (0-100)
[2024-03-04] MEDS: 0.9% Normal Saline (1000mL) 1,000 ML 999 ML IV ×3 (01:51→04:13)
[2024-03-04] MEDS: Vancomycin IV 1,000 MG/200 ML BAG 200 MG IV (01:52)
--- NOTE | 2024-03-04 02:05 | ECHOD_ITS ---
Reason For Study: PHTN Procedure This was a 2D Doppler, Color Flow transthoracic echocardiogram. Exam performed portable in ICU/CCU. Left Ventricle Mildly dilated left ventricle. The estimated ejection fraction is 45-50 %. Right Ventricle Normal right ventricle. Atria The left atrium is mildly enlarged. Normal right atrium. Mitral Valve The mitral valve is structurally normal. No prolapse or stenosis seen. Moderate (2+) mitral valve insufficiency. Tricuspid Valve Normal tricuspid valve. Aortic Valve Trisinus/trileaflet aortic valve. Pulmonic Valve The pulmonic valve is not well visualized. Great Vessels Normal aortic root. Pericardium/Pleural No pericardial effusion. MMode/2D Measurements & Calculations LVIDd: 5.8 cm IVSd: 1.1 cm LA dimension: 4.3 cm LVIDs: 4.6 cm LVPWd: 0.76 cm RVDd: 3.0 cm FS: 20.8 % LAV(MOD-bp): 53.1 ml LVAd ap4: 33.9 cm2 LVAd ap2: 34.5 cm2 LAV(MOD-bp) Indexed: 33.0 ml/m2 LVLd ap4: 7.7 cm LVLd ap2: 8.5 cm LAV(MOD-sp2): 74.9 ml EDV(MOD-sp4): 122.6 ml EDV(MOD-sp2): 117.8 ml LAV(MOD-sp4): 35.9 ml EDV(sp4-el): 126.9 ml EDV(sp2-el): 118.3 ml LVAs ap4: 24.9 cm2 LVAs ap2: 24.1 cm2 LVLs ap4: 7.1 cm LVLs ap2: 7.4 cm ESV(MOD-sp4): 70.8 ml ESV(MOD-sp2): 63.1 ml ESV(sp4-el): 74.1 ml ESV(sp2-el): 66.4 ml EF(MOD-sp4): 42.2 % EF(MOD-sp2): 46.4 % EF(sp4-el): 41.6 % SV(MOD-sp4): 51.8 ml SV(MOD-sp2): 54.7 ml SV(sp4-el): 52.8 ml TAPSE: 1.7 cm LA A4 area: 15.6 cm2 RA A4 area: 11.7 cm2 Time Measurements MV dec time: 0.18 sec Doppler Measurements & Calculations MV E max james: 105.8 cm/sec Lat Peak E' James: 13.0 cm/sec Med Peak E' James: 8.6 cm/sec MV A max james: 89.2 cm/sec E/E' lat: 8.2 E/E' med: 12.3 MV E/A: 1.2 MV V2 max: 132.6 cm/sec MV P1/2t max james: 133.7 cm/sec Ao V2 max: 136.2 cm/sec MV max P.0 mmHg MV P1/2t: 63.2 msec Ao max P.4 mmHg MV V2 mean: 65.9 cm/sec MV dec slope: 619.2 cm/sec2 Ao V2 mean: 94.5 cm/sec MV mean P.1 mmHg Ao mean P.0 mmHg MV V2 VTI: 35.1 cm MVA(P1/2t): 3.5 cm2 Ao V2 VTI: 30.7 cm AV (velocity ratio): 0.73 LV V1 max: 99.6 cm/sec MR max james: 552.3 cm/sec TR max james: 363.0 cm/sec LV V1 max P.0 mmHg MR max P.0 mmHg TR max P.7 mmHg LV V1 mean P.4 mmHg MR mean james: 452.4 cm/sec LV V1 mean: 72.6 cm/sec MR mean P.2 mmHg LV V1 VTI: 22.6 cm MR VTI: 187.7 cm ECHO/Echo Complete Interpretation Summary The estimated ejection fraction is 45-50 %. Mild LV systolic dysfunction Mild global LV hypokinesia Moderate eccentric MR Ordering Physician: Guero Ramirez Performed By: Colin Evans RCS
--- NOTE | 2024-03-04 03:42 | PCM.RX.CS ---
Consult Antibiotic Management Pharmacy has been consulted to manage selected antibiotic: Vancomycin Type of Intervention Type of Consult: New start Suspected Infection Suspected Infection: Sepsis and Pneumonia Labs Labs: Sodium 137 mmol/L (136-145) 03/04/24 00:30 Potassium 3.9 mmol/L (3.5-5.1) 03/04/24 00:30 Chloride 98 mmol/L (98-107) 03/04/24 00:30 Carbon Dioxide 38.0 mmol/L (21.0-32.0) H 03/04/24 00:30 Anion Gap 1 (5-15) L 03/04/24 00:30 BUN 22 mg/dL (7-18) H 03/04/24 00:30 Creatinine 0.88 mg/dL (0.55-1.02) 03/04/24 00:30 Est GFR (MDRD) Af Amer 82 mL/min (>60) 03/04/24 00:30 Est GFR (MDRD) Non-Af 68 mL/min (>60) 03/04/24 00:30 BUN/Creatinine Ratio 25.0 RATIO (10-20) H 03/04/24 00:30 Glucose 120 mg/dL (74-106) H 03/04/24 00:30 Dosing Weight Weight used for dosin.4 kg Estimated Creatinine Clearance Estimated Creatinine Clearance: 50 Goal Trough Goal Trough: 15-20 mcg/mL Pharmacy Plan for Drug Dosing Pharmacy Plan for Drug Dosing: Pharmacy Service will continue to monitor and adjust dosing as required. Follow-Up Labs Follow-Up Labs: Trough: Vancomycin Date/Time Labs Ordered Labs to be done on [date and time ordered]: 03/05/24 @2171
[2024-03-04] MEDS: MethylPREDNISolone 125 MG/2 ML Vial IV (03:47)
[2024-03-04] MEDS: 0.9% Saline Lock 10 ML Syringe IV ×2 (04:35→21:33)
[2024-03-04] MEDS: Nystatin 500,000 UNIT/5 ML PO.SYRINGE (WCH) 500000 UNIT PO ×2 (04:35→21:02)
[2024-03-04] MEDS: Piperacil/Tazobactam 3.375 GM in 0.9% Normal Saline (50mL MB+) 50 ML IV ×3 (04:36→21:03)
[2024-03-04] MEDS: Phenytoin Na 100 MG Capsule PO ×2 (04:41→21:01)
[2024-03-04 04:48] LABS: Lactic Acid 1.5 mmol/L (0.4-1.9)
[2024-03-04] MEDS: Norepinephrine 8 MG in 0.9% Normal Saline (250mL Bag) 242 ML 9.4 MG CONT INF (05:15)
[2024-03-04 05:17] LABS: Alcohol, Blood (Medical)-Serum < 3.0 mg/dL
--- NOTE | 2024-03-04 06:00 | RAD_ITS ---
EXAM: XR CHEST, 1 VIEW CLINICAL INDICATION: RUL PNA with Sepsis. TECHNIQUE: Frontal view of the chest. 6:05 AM. COMPARISON: Previous portable chest radiograph of 03/04/2024. FINDINGS: LUNGS AND PLEURAL SPACES: The focal rounded consolidation within the right upper lobe is again noted, consistent with pneumonia, slightly more dense than on the prior study, but without interval increase in size. No cavitation is seen within this pneumonia. No pneumothorax. No acute infiltrates are seen on the left. No pleural effusion is noted. HEART: Heart size is upper normal with normal pulmonary vasculature. MEDIASTINUM: Stable minimal elongation of the thoracic aorta. BONES/JOINTS: Unremarkable. No acute fracture. SOFT TISSUES: Vascular calcification is again noted within the neck. TUBES, LINES AND DEVICES: Stable positioning of tracheostomy tube. RAD/Chest 1 View (Portable) IMPRESSION: The right upper lobe pneumonia is again noted, slightly more dense than on the prior study due to increasing consolidation, but the area of consolidation has not increased in size. Electronically Signed: Rusty Rodriguez MD at 8:00 EDT ,
[2024-03-04 06:31] LABS: Allen Test Positive; Base Excess 5 mmol/L (-2 to +2); Bicarbonate 31.6 mmol/L (22-26); Blood Gas Specimen Type ART; Mode Not entered; O2 Delivery Device Cannula; PO2 138 mmHG (75-100); SITE L Radial; SO2 99 % (95-99); Total Carbon Dioxide 34 mmol/L; pCO2 70.3 mmHg (35-45); pH 7.26 (7.35-7.45)
[2024-03-04] MEDS: Ascorbic Acid 500 MG Tablet 1000 MG PO (08:04)
[2024-03-04] MEDS: Escitalopram Oxalate 20 MG Tablet PO (08:05)
[2024-03-04] MEDS: Lactobacillis Acidophilus 1 CAP PO ×2 (08:05→21:01)
[2024-03-04] MEDS: Aspirin E.C. 81 MG Tablet PO (08:05)
[2024-03-04] MEDS: Cholecalciferol (Vit D3) 125 MCG CAPSULE (5,000 UNITS) PO (08:05)
[2024-03-04] MEDS: Zinc Sulfate 50 mg zinc (220 mg) ORAL capsule PO (08:05)
[2024-03-04] MEDS: DULoxetine Hcl 30 MG Capsule PO (08:05)
[2024-03-04] MEDS: guaiFENesin/D-Methorphan TAB.SR.12H 2 TABLET PO ×2 (08:06→21:02)
--- NOTE | 2024-03-04 08:58 | PN.HOSP_ITS ---
Reason for Visit Reason for Visit: Diagnoses Sepsis, unspecified organism (03/04/24) Encephalopathy, unspecified (03/04/24) Metabolic encephalopathy (03/04/24) Old myocardial infarction (03/04/24) Takotsubo syndrome (03/04/24) Nontraumatic intracerebral hemorrhage, unspecified (03/04/24) Cerebral infarction, unspecified (03/04/24) Pneumonia, unspecified organism (03/04/24) Chronic obstructive pulmonary disease with (acute) exacerbation (03/04/24) Severe sepsis without septic shock (03/04/24) Other specified abnormal findings of blood chemistry (03/04/24) Nosocomial condition (03/04/24) Other specified health status (03/04/24) Subjective Subjective does not recall what happened at home. Denies marijuana use. Objective Data Objective Data Vital Signs: Vital Signs Temp Pulse Resp BP Pulse Ox O2 Del Method O2 Flow Rate 36.7 C 57 L 12 100/46 L 100 Mechanical Ventilator 3 03/04/24 08:00 03/04/24 08:15 03/04/24 08:15 03/04/24 08:00 03/04/24 08:15 03/04/24 08:35 03/04/24 08:00 FiO2 30 03/04/24 08:35 Oxygen Flow Rate (L/min) 3 Oxygen Delivery Method Mechanical Ventilator Weight: 59.4 kg Body Mass Index (BMI) 23.1 Intake & Output: Intake and Output for Last 24 Hours 03/02/24 03/03/24 03/04/24 23:59 23:59 23:59 Intake Total 3511.67 / 3511.67 Balance 3511.67 / 3511.67 Lab / Micro Data 03/04/24 00:04 03/04/24 00:30 Labs: Laboratory Results - last 24 hr 03/04/24 00:04: WBC 30.8 H*, RBC 3.50 L, Hgb 9.5 L, Hct 32.1 L, MCV 91.7, MCH 27.1, MCHC 29.6 L, RDW Std Deviation 53.1 H, RDW Coeff of Deonte 15.9 H, Plt Count 208, MPV 10.7, Immature Gran % (Auto) 1.800 H, Neut % (Auto) 83.7 H, Lymph % (Auto) 5.4 L, Josephine % (Auto) 8.8, Eos % (Auto) 0.0, Baso % (Auto) 0.3, Absolute Neuts (auto) 25.8 H, Absolute Lymphs (auto) 1.67, Nucleated RBC % 0, Diff Path Review November03/04/24 00:30: Sodium 137, Potassium 3.9, Chloride 98, Carbon Dioxide 38.0 H, A nion Gap 1 L, BUN 22 H, Creatinine 0.88, Estim Creat Clear Calc 49.91, Est GFR (MDRD) Af Amer 82, Est GFR (MDRD) Non-Af 68, BUN/Creatinine Ratio 25.0 H, G lucose 120 H, Lactic Acid 0.9, Calcium 9.0, Troponin I High Sens 71 H, B- Natriuretic Peptide 557.4 H 03/04/24 02:05: TSH 1.720 03/04/24 04:00: Lactic Acid 1.5 03/04/24 04:05: Ethyl Alcohol < 3.0 ABG Data ABG results: ABG 03/04/24 03/04/24 00:18 06:26 Specimen Type ART ART Sample Site R Radial L Radial pH 7.46 H 7.26 L Bicarbonate Actual 34.9 H 31.6 H Total CO2 36 34 Base Excess 11 H 5 H O2 Saturation 89 L 99 O2 % 4.0 3.0 ABG pCO2 49.0 H 70.3 H* ABG pO2 54 L 138 H Royal Test Positive Positive O2 Delivery Device Cannula Cannula Vent Mode Not entered Not entered Crit Call To/Read Back Yes Blood Gas Notified Whom de Efrain Blood Gas Notified Time 06:28:45 Radiography Diagnostic Testing: Radiology Impression Chest X-Ray 03/03/24 00:35 IMPRESSION: Interval development of patchy right upper lobe pneumonia. Electronically Signed: Rusty Rodriguez MD at 1:43 EDT , Chest X-Ray 03/04/24 06:00 IMPRESSION: The right upper lobe pneumonia is again noted, slightly more dense than on the prior study due to increasing consolidation, but the area of consolidation has not increased in size. Electronically Signed: Rusty Rodriguez MD at 8:00 EDT , Rhythm Strip Rhythm Strip: Sinus Tach Rate: 105 Ectopy: PVC(s) Physical Exam Const alert and no apparent distress Constitutional Narrative: On nasal cannula no respiratory distress. Alert. Interactive. Recalls events from yesterday when I was interacting with her. Resp normal respiratory effort, no retractions, no use of accessory muscles and clear to auscultation bilaterally Cardio regular rate, regular rhythm, S1 normal heart sound and S2 normal heart sound GI normal to inspection, nondistended, normoactive bowel sounds, soft to palpation, non-tender and non-distended Neuro Sensorium / Orientation: awake and alert Assessment & Plan Assessment/Plan (1) Acute hypoxic on chronic hypercapnic respiratory failure: PLAN: Secondary to COPD exacerbation. Patient was seen by me on the and patient was very insistent on going home. At that time her lungs were clear and her resting and ambulatory pulse ox on her normal oxygen of 5 L/min was unremarkable. But unfortunately at home she got worse. There is now a right upper lobe infiltrate that was not present on previous chest x-ray imaging nor CAT scan from the previous admission. That likely complicated her respiratory status. Currently she is awake and alert but with her respiratory acidosis and hypercapnia, I feel the patient would benefit from being on the ventilator. With her having a tracheostomy, will get her back on the ventilator. Discussed with respiratory and placed in vent orders of assist-control, respiratory rate of 12, tidal volume of 450 and PEEP of 5. Do not anticipate patient requiring being on the ventilator very long because she is awake and alert at present. Since she already has a tracheostomy she does not require sedation. Will consult CCM. (2) Acute exacerbation of chronic obstructive pulmonary disease (COPD): PLAN: Ongoing. Continue with steroids as well as bronchodilators. Likely exacerbated by pneumonia. (3) Sepsis: QUALIFIERS: Sepsis type: sepsis due to unspecified organism S epsis acute organ dysfunction status: with acute organ dysfunction Severe sepsis acute organ dysfunction type: encephalopathy Severe sepsis shock status: without septic shock Qualified Code(s): A41.9 - Sepsis, unspecified organism; R65.20 - Severe sepsis without septic shock; G93.41 - Metabolic encephalopathy PLAN: Septic shock present on admission. qSOFA of 2 with encephalopathy respiratory rate 29. Secondary to pneumonia Patient hemodynamically stable and has had received 3 L of IV fluid. Patient now on norepinephrine. Patient will require PICC line for additional titration. Discussed with nursing and patient. Would recommend against triple-lumen placement and IJ or femoral area. IJ is complicated but because the patient has a tracheostomy with straps around her neck and inguinal region the risk for infection. If PICC cannot be immediately placed, then we will proceed with an IJ approach (4) Gram-negative pneumonia: PLAN: Suspected given the patient's recent hospitalization. Continue with pip-tazo and vancomycin. Respiratory panel, COVID-19, influenza and RSV were previously negative. Will check sputum culture. Check strep and Legionella urinary antigens. (5) Elevated troponin: PLAN: Likely type II strain from the respiratory failure. Overall trending down from 28th. No additional workup at this time. (6) Acute encephalopathy: PLAN: Metabolic secondary to CO2 narcosis. There is mention in the patient's had consumed a gummy. Patient adamantly denies using marijuana nor any Gummies. No additional workup at this time unless her condition changes. PLAN: Plan VTE prophylaxis with enoxaparin. Charges/Coding Procedures Hospitalists Procedures: Other Procedure - See Report ([id number])
[2024-03-04] MEDS: Pantoprazole Sodium 40 MG in 0.9% Normal Saline (100mL MB+) 100 ML 330 MG IV (09:23)
[2024-03-04] MEDS: Enoxaparin 40 MG/0.4 ML Syringe SC (09:25)
[2024-03-04 10:07] LABS: Allen Test Positive; Base Excess 3 mmol/L (-2 to +2); Blood Gas Specimen Type ART; Mode AC; O2 Delivery Device Adult Vent; PEEP 5; PO2 69 mmHG (75-100); RR 12; SITE L Brach; SO2 92 % (95-99); Total Carbon Dioxide 30 mmol/L; pH 7.36 (7.35-7.45)
[2024-03-04] MEDS: Vancomycin IV 500 MG/100 ML BAG 100 MG IV (14:04)
--- NOTE | 2024-03-04 14:22 | CASEMGMT ---
RN SPIKE attempted to discuss readmission and discharge planning with patient. Patient is alert and oriented but unable to talk as she is now on ventilator. Patient was just discharged yesterday with [facility] and increase in home to 5lpm continuously through [facility] [place]. Patient does nod that she was wearing her home oxygen at discharge. Per documentation, patient was insistent on discharging yesterday. Per hospitalist patient will be here through weekend. CM will continue to follow this patient and plan for a safe discharge.
--- NOTE | 2024-03-04 15:45 | PCMCONS.TICU ---
HPI Consult Data Date of Consult: 03/04/24 HPI Narrative HPI Narrative: MARCO MAY, is a 68 F who presents [facility] Medical History Hypothyroidism Former smoker BiPAP (biphasic positive airway pressure) dependence On home oxygen therapy Asthma Seizures Stroke/cerebrovascular accident Noncompliance Diastolic CHF History of alcohol abuse Aspiration pneumonia due to gastric secretions Carcinoma in situ of breast Benign neoplasm of colon Takotsubo cardiomyopathy (06/17/21) Ischemic cerebrovascular accident (CVA) (02/06/17) Non-rheumatic mitral regurgitation Anxiety and depression Non-ischemic cardiomyopathy Essential (primary) hypertension Secondary pulmonary arterial hypertension Chronic anemia GERD (gastroesophageal reflux disease) TIO (obstructive sleep apnea) History of non-ST elevation myocardial infarction (NSTEMI) (02/03/17) History of DVT of lower extremity (02/11/17) Insomnia Hyperlipidemia Daytime hypersomnia Hemorrhagic cerebrovascular accident (CVA) (02/09/17) COPD (chronic obstructive pulmonary disease) Home Medications ?Medication ?Instructions ?Recorded ?Last Taken ?Type cholecalciferol (vitamin D3) 25 25 mcg PO DAILY supplement 11/03/20 Unknown History mcg (1,000 unit) tablet (Vitamin D3) pantoprazole 40 mg tablet,delayed 40 mg PO DAILY GERD 11/03/20 11/15/23 History release (Protonix) aripiprazole 2 mg tablet (Abilify) 2 mg PO .daily QHS mental health / 08/25/22 11/15/23 History sleep atorvastatin 40 mg tablet 40 mg PO QHS cholesterol 08/25/22 11/15/23 History metoprolol succinate 25 mg 25 mg PO DAILY blood pressure 08/25/22 11/15/23 History tablet,extended release 24 hr phenytoin 100 mg/4 mL oral 100 mg (4 mL) PO Q8 seizures 30 10/12/22 Unknown Rx suspension days #360 mL duloxetine 30 mg capsule,delayed 30 mg PO DAILY mental health 11/11/22 11/15/23 History release furosemide 20 mg tablet 20 mg PO BIDCM diuretic 11/11/22 11/15/23 History mirtazapine 7.5 mg tablet 7.5 mg PO QHS mental health #30 11/11/22 11/14/23 Rx tabs albuterol sulfate 2.5 mg/3 mL 2.5 mg (3 mL) inhalation Q2H PRN 06/30/23 11/15/23 Rx (0.083 %) solution for nebulization PRN Dyspnea, wheezing #180 mL albuterol sulfate 90 mcg/actuation 2 inh inhalation Q4H breathing 06/30/23 11/15/23 Rx aerosol inhaler #8.5 grams fluticasone fur. 100 mcg-umeclid 1 inh inhalation DAILY breathing 06/30/23 11/15/23 Rx 62.5 mcg-vilant 25 mcg 30 days #60 ea inhalat.powder (Trelegy Ellipta) nystatin 100,000 unit/mL oral 5 ml mucous membrane TID 06/30/23 11/15/23 Rx suspension inflammation #250 mL aspirin 81 mg tablet,delayed 81 mg PO DAILY heart health 11/15/23 11/15/23 History release (Adult Aspirin Regimen) escitalopram oxalate 20 mg tablet 20 mg PO DAILY mental health 11/15/23 11/15/23 History hydroxyzine pamoate 25 mg capsule 25 mg PO TID allergies 11/15/23 11/15/23 History ipratropium 0.5 mg-albuterol 3 mg 3 ml inhalation Q6H breathting 11/15/23 11/15/23 History (2.5 mg base)/3 mL nebulization soln zolpidem 10 mg tablet 10 mg PO QHS PRN insomnia 11/15/23 11/14/23 History acetaminophen 325 mg tablet 650 mg (2 x 325 mg) PO Q4H PRN PRN 11/18/23 Unknown Rx Fever, pain 1-04/13 #0 tabs dextromethorphan-guaifenesin 30 2 tab PO BID cough 7 days #28 tabs 11/18/23 Unknown Rx mg-600 mg tablet extended siorozt97 hr (Mucinex DM) sennosides 8.6 mg-docusate sodium 2 tab PO BID PRN PRN Constipation 11/18/23 Unknown Rx 50 mg tablet (Stool #0 tabs Softener-Stimulant Laxative) potassium chloride 20 mEq 20 meq PO BID supplement 01/28/24 Unknown History tablet,extended release(part/cryst) (Klor-Con M) amoxicillin 875 mg-potassium 1 tab PO BIDCM #7 tabs 03/03/24 Unknown Rx clavulanate 125 mg tablet prednisone 10 mg tablet 10 mg PO DAILY #30 tabs 03/03/24 Unknown Rx Allergy/AdvReac Type Severity Reaction Status Date / Time tetanus and diphtheria Allergy Hives Verified 03/03/24 23:11 toxoids (tetanus & diphtheria toxoids) Family History Sister Cancer lung Father Cancer lung Mother Cancer lung Surgical History S/P emergency tracheotomy for assistance in breathing History of tracheostomy S/P percutaneous endoscopic gastrostomy (PEG) tube placement History of left heart catheterization (06/17/21) History of bilateral cataract extraction Hx of appendectomy H/O: section History of lumpectomy History of cholecystectomy Social History household members: spouse Smoking Status: Former smoker how long ago did patient quit smokin, 1pk/day second hand exposure: Yes alcohol intake: former substance use type: does not use what type of physical activity do you participate in: walking frequency: daily Objective Data Objective Data Vital Signs: Vital Signs Last response Temperature 37.1 C 03/04/24 12:00 Temperature Source Temporal 03/04/24 12:00 Pulse Rate 62 03/04/24 15:00 Respiratory Rate 13 03/04/24 15:00 Respiratory Effort Mechanically Ventilated 03/04/24 08:35 Respiratory Depth Normal 03/04/24 08:35 Respiratory Pattern Normal 03/04/24 14:10 Blood Pressure 135/56 H 03/04/24 15:00 Blood Pressure Mean 82 03/04/24 15:00 Blood Pressure Source Monitor 03/04/24 15:00 Blood Pressure Position Semi-Fowlers 03/04/24 15:00 Blood Pressure Location Left Arm 03/04/24 15:00 Pulse Ox 98 03/04/24 15:00 Oxygen Delivery Method Mechanical Ventilator 03/04/24 15:00 Oxygen Flow Rate (L/min) 3 03/04/24 08:00 Fraction of Inspired Oxygen (FIO2) 30 03/04/24 15:00 I&O: I&O Last 24 Hours 03/03/24 03/04/24 03/04/24 23:59 11:59 23:59 Intake Total 3678.07 / 4551.17 873.10 / 4551.17 Output Total 50 / 50 Balance 3678.07 / 4501.17 823.10 / 4501.17 I&O: Total Stay 03/03/24 23:09 thru 03/04/24 15:16 Intake Total 4551.17 Output Total 50 Balance 4501.17 Current Meds Ordered / Administered: Current meds ordered / Administered Generic Name Dose Route Start Last Admin Trade Name Freq PRN Reason Stop Dose Admin Albuterol Sulfate 2.5 mg 03/04/24 03:00 Albuterol 2.5 Mg/3 Ml Vial.Neb. INHALATION Q2H PRN PRN Dyspnea, wheezing Albuterol/Ipratropium 3 ml 03/04/24 06:00 03/04/24 14:01 Ipratropium/Albuterol Sulfate 3 Ml Ampul.Neb INHALATION 3 ml Q6HWA.RT WALTER Administration Aripiprazole 2 mg 03/04/24 22:00 Aripiprazole 2 Mg Tablet PO QHS [facility] Protocol Ascorbic Acid 1,000 mg 03/04/24 08:00 03/04/24 08:04 Ascorbic Acid 500 Mg Tablet PO 1,000 mg BIDCM WALTER Administration Aspirin 81 mg 03/04/24 08:00 03/04/24 08:05 Aspirin E.C. 81 Mg Tablet PO 81 mg DAILYCM WALTER Administration Cholecalciferol 125 mcg 03/04/24 10:00 03/04/24 08:05 Cholecalciferol (Vit D3) 125 Mcg Capsule (5,000 Units) PO 125 mcg DAILY WALTER Administration Duloxetine HCl 30 mg 03/04/24 10:00 03/04/24 08:05 Duloxetine Hcl 30 Mg Capsule PO 30 mg DAILY WALTER Administration Enoxaparin Sodium 40 mg 03/04/24 10:00 03/04/24 09:25 Enoxaparin 40 Mg/0.4 Ml Syringe SC 40 mg DAILY WALTER Administration Escitalopram Oxalate 20 mg 03/04/24 10:00 03/04/24 08:05 Escitalopram Oxalate 20 Mg Tablet PO 20 mg DAILY WALTER Administration Guaifenesin 2 tablet 03/04/24 10:00 03/04/24 08:06 Guaifenesin/D-Methorphan Tab.Sr.12h PO 2 tablet BID WALTER Administration Sodium Chloride 1,000 mls @ 80 mls/hr 03/03/24 23:45 03/04/24 15:09 IV 80 mls/hr .[id number] WALTER Administration Vancomycin IV-PHARMACY TO DOSE 500 mls @ 250 mls/hr 03/04/24 01:59 1 each/ Sodium Chloride IV PRN PRN Rx to Dose Protocol Pantoprazole Sodium 40 mg/ 110 mls @ 330 mls/hr 03/04/24 10:00 03/04/24 09:50 Sodium Chloride IV Infused DAILY WALTER Infusion Piperacillin Sod/Tazobactam 50 mls @ 12.5 mls/hr 03/04/24 06:00 03/04/24 15:06 Sod 3.375 gm/ Sodium Chloride IV 12.5 mls/hr Q8 WALTER Administration Sodium Chloride 250 mls @ 15 mls/hr 03/04/24 03:03 IV .[id number] PRN Additional IVPB Infusion Sodium Chloride 250 mls @ 15 mls/hr 03/04/24 03:03 IV .[id number] PRN Saline Flush Vancomycin HCl 500 mg in 100 mls @ 100 mls/hr 03/04/24 14:00 03/04/24 15:16 IV Infused Q12H WALTER Infusion Norepinephrine Bitartrate 8 mg 250 mls @ 9.375 mls/hr 03/04/24 04:35 03/04/24 15:00 / Sodium Chloride CONT INF 10 mcg/min .[id number] WALTER 18.8 mls/hr Titration Protocol 5 MCG/MIN Ketorolac Tromethamine 15 mg 03/04/24 02:05 Ketorolac 15 Mg/Ml Vial IV 03/09/24 02:06 Q8H PRN PRN Pain 1-10 or Fever Methylprednisolone 40 mg 03/04/24 14:00 03/04/24 15:06 Methylprednisolone 40 Mg/Ml Vial IV 40 mg Q8 WALTER Administration Mirtazapine 7.5 mg 03/04/24 22:00 Mirtazapine 15 Mg Tablet PO QHS WALTER Nystatin 500,000 unit 03/04/24 06:00 03/04/24 14:05 Nystatin 500,000 Unit/5 Ml Po.Syringe (Wch) PO Not Given TID WALTER Phenytoin Sodium 100 mg 03/04/24 06:00 03/04/24 14:05 Phenytoin Na 100 Mg Capsule PO Not Given Q8 WALTER Sodium Chloride 10 - 40 ml 03/04/24 03:03 03/04/24 04:35 0.9% Saline Lock 10 Ml Syringe IV 30 ml UD PRN Administration SALINE FLUSH Vancomycin Protocol 1 lab 03/05/24 11:30 Vancomycin Trough/Random Due 03/05/24 15:30 DAILY WALTER Zinc Sulfate 50 mg 03/04/24 10:00 03/04/24 08:05 Zinc Sulfate 50 Mg Zinc (220 Mg) Oral Capsule PO 50 mg DAILY WALTER Administration Lab / Micro Data 03/04/24 00:04 03/04/24 00:30 Labs: Laboratory Results - last 24 hr 03/04/24 00:04: WBC 30.8 H*, RBC 3.50 L, Hgb 9.5 L, Hct 32.1 L, MCV 91.7, MCH 27.1, MCHC 29.6 L, RDW Std Deviation 53.1 H, RDW Coeff of Deonte 15.9 H, Plt Count 208, MPV 10.7, Immature Gran % (Auto) 1.800 H, Neut % (Auto) 83.7 H, Lymph % (Auto) 5.4 L, Dawes % (Auto) 8.8, Eos % (Auto) 0.0, Baso % (Auto) 0.3, Absolute Neuts (auto) 25.8 H, Absolute Lymphs (auto) 1.67, Nucleated RBC % 0, Diff Path Review November03/04/24 00:30: Sodium 137, Potassium 3.9, Chloride 98, Carbon Dioxide 38.0 H, Anion Gap 1 L, BUN 22 H, Creatinine 0.88, Estim Creat Clear Calc 49.91, Est GFR (MDRD) Af Amer 82, Est GFR (MDRD) Non-Af 68, BUN/Creatinine Ratio 25.0 H, Glucose 120 H, Lactic Acid 0.9, Calcium 9.0, Troponin I High Sens 71 H, B-Natriuretic Peptide 557.4 H 03/04/24 02:05: TSH 1.720 03/04/24 04:00: Lactic Acid 1.5 03/04/24 04:05: Ethyl Alcohol < 3.0 ABG Data ABG results: ABG 08/31/24 08/31/24 08/31/24 00:18 06:26 10:04 Specimen Type ART ART ART Sample Site R Radial L Radial L Brach pH 7.46 H 7.26 L 7.36 Bicarbonate Actual 34.9 H 31.6 H 28.0 H Total CO2 36 34 30 Base Excess 11 H 5 H 3 H O2 Saturation 89 L 99 92 L O2 % 4.0 3.0 25.0 ABG pCO2 49.0 H 70.3 H* 50.0 H ABG pO2 54 L 138 H 69 L Royal Test Positive Positive Positive Respiration Rate 12 O2 Delivery Device Cannula Cannula Adult Vent Vent Mode Not entered Not entered AC Tidal Volume 450.0 POC PEEP 5 Crit Call To/Read Back Yes Blood Gas Notified Whom Ramirez Blood Gas Notified Time 06:28:45 Rhythm Strip Rhythm Strip: Sinus Tach Rate: 105 Ectopy: PVC(s) Imaging Radiology Impression Chest X-Ray 03/03/24 00:35 IMPRESSION: Interval development of patchy right upper lobe pneumonia. Electronically Signed: Rusty Rodriguez MD at 1:43 EDT , Echocardiogram 03/04/24 02:05 Interpretation Summary The estimated ejection fraction is 45-50 %. Mild LV systolic dysfunction Mild global LV hypokinesia Moderate eccentric MR Ordering Physician: Guero Ramirez Performed By: Colin Evans RCS Chest X-Ray 03/04/24 06:00 IMPRESSION: The right upper lobe pneumonia is again noted, slightly more dense than on the prior study due to increasing consolidation, but the area of consolidation has not increased in size. Electronically Signed: Rusty Rodriguez MD at 8:00 EDT , Assessment and Plan . Assessment and plan: Patient seen and examined Chart and data reviewed HPI 68 yo chronically ill and debilitated woman, former smoker, w/ COPD, chronic tracheostomy status, admitted 03/04/24 w/ confusion and fever. She was just discharged from this facility the day prior. Noted fever and tachycardia in the ED. She apparently uses supplemental O2 chronically but does not require PPV support. pCXR reveals a wedge-shaped opacity in the RUL. Lab significant for WBC 30L. LA is WNL. ABG performed and reveals acute and chronic hypercapnia. She has received IV ABX, steroids, inhaled BD. MV support has been initiated via trach tube. She is awake and appropriate. MV 10-11 LPM, PIP 25, O2 0.25 She transiently required NE for BP support, but it is now off. PHYSICAL EXAM GEN NAD VS as above HEENT PERRL NECK midline tube COR RRR CHEST diminished ABD soft EXT minimal edema SKIN w/d GDOWIN NF ASSESSMENT 1. Acute respiratory failure requiring MV support 2. Chronic tracheostomy status 3. Suspected HCAP 4. Underlying COPD 5. Confusion - metabolic encephalopathy 6. H/O VTED, ASCVD, and chronic CHF TREATMENT PLAN -supplemental O2 -PPV support as needed -inhaled BD and IV corticosteroids -IV ABX -VTE ppx Critical Care Time: 60 min The entirety of this encounter was done via Telemedicine
[2024-03-04] MEDS: Mirtazapine 15 MG Tablet 7.5 MG PO (21:01)
[2024-03-04] MEDS: ARIPiprazole 2 MG Tablet PO (21:02)
[2024-03-04] MEDS: Zolpidem Tartrate 5 MG Tablet PO (21:32)
[2024-03-05] VITALS (43 sets, daily range): BP systolic 112–172; BP diastolic 54–99; PULSE 49–115; RESP 12–28; TEMP 36.7–36.8; O2SAT 90–100; BMI 25.1
[2024-03-05] MEDS: Norepinephrine 8 MG in 0.9% Normal Saline (250mL Bag) 242 ML 9.4 MG CONT INF (01:00)
[2024-03-05] MEDS: Vancomycin IV 500 MG/100 ML BAG 100 MG IV (03:48)
[2024-03-05] MEDS: 0.9% Normal Saline (1000mL) 1,000 ML 80 ML IV ×2 (03:48→16:03)
[2024-03-05 03:57] LABS: Absolute Lymphocyte Count 0.76 X10^3/uL (0.83-4.51); Absolute Neutrophil Count 23.4 X10^3/uL (2.0-7.7); Basophil# 0.04 X10^3/uL; Basophil% 0.2 % (0-1); Hematocrit 28.4 % (37-47); Hemoglobin 8.5 g/dL (12.0-15.0); Lymphocyte # 0.76 X10^3/ul (0.83-4.51); Mean Corp Hgb Conc 29.9 g/dL (32-36); Mean Corpuscular Hgb 26.7 pg (27.0-32.0); Mean Corpuscular Volume 89.3 fL (81-99); Mean Platelet Vol. 9.7 fl (6.2-12.0); Monocyte# 0.71 X10^3/uL; Monocyte% 2.8 % (0-10); NRBC Flagged by Analyzer 0.1 % (0-5); Neutrophil # 23.39 X10^3/uL (2.7-7.7); Neutrophil % 92.7 % (47-70); POSITIVE DIFFERENTIAL YES; Platelet Count 287 K/mm3 (150-450); RBC Distribution Width CV 15.9 % (11.6-14.6); Red Blood Count 3.18 M/mm3 (4.2-5.4); White Blood Count 25.2 K/mm3 (4.4-11.0)
[2024-03-05 04:01] LABS: Differential Indicated SCAN CRITERIA MET
[2024-03-05 04:30] LABS: ALB/GLOB Ratio 0.6 RATIO (0.9-2.4); AST(SGOT) 6 U/L (15-37); Alanine Aminotransfer ALT/SGPT 8 U/L (13-56); Albumin, Serum 2.2 g/dL (3.2-5.0); Alkaline Phosphatase 60 U/L (45-117); Anion Gap 5 (5-15); BUN 17 mg/dL (7-18); BUN/Creat Ratio 23.1 RATIO (10-20); Calcium,Total 8.2 mg/dL (8.5-10.1); Chloride 111 mmol/L (98-107); Creatinine, Serum 0.74 mg/dL (0.55-1.02); EST Glomerular Filtration Rate 83 mL/min (>60); Est Glom Filt Rate - Afr Amer 101 mL/min (>60); Globulin 3.8 g/dL (2.2-4.2); Glucose 249 mg/dL (74-106); Potassium 3.2 mmol/L (3.5-5.1); Sodium Level 144 mmol/L (136-145)
[2024-03-05 04:40] LABS: Differential Comment SCANNED
[2024-03-05] MEDS: Piperacil/Tazobactam 3.375 GM in 0.9% Normal Saline (50mL MB+) 50 ML IV ×3 (06:08→20:06)
[2024-03-05] MEDS: Ipratropium/Albuterol Sulfate 3 ML AMPUL.NEB INHALATION ×3 (06:57→19:23)
--- NOTE | 2024-03-05 07:35 | PN.HOSP_ITS ---
Reason for Visit Reason for Visit: Diagnoses Sepsis, unspecified organism (03/04/24) Encephalopathy, unspecified (03/04/24) Metabolic encephalopathy (03/04/24) Old myocardial infarction (03/04/24) Takotsubo syndrome (03/04/24) Nontraumatic intracerebral hemorrhage, unspecified (03/04/24) Cerebral infarction, unspecified (03/04/24) Pneumonia due to other Gram-negative bacteria (03/04/24) Pneumonia, unspecified organism (03/04/24) Chronic obstructive pulmonary disease with (acute) exacerbation (03/04/24) Acute respiratory failure with hypoxia (03/04/24) Chronic respiratory failure with hypercapnia (03/04/24) Severe sepsis without septic shock (03/04/24) Other specified abnormal findings of blood chemistry (03/04/24) Nosocomial condition (03/04/24) Other specified health status (03/04/24) Subjective Subjective Breathing better. Still on vasopressors. Having some ectopy with frequent PVCs. Objective Data Objective Data Vital Signs: Vital Signs Temp Pulse Resp BP Pulse Ox O2 Del Method O2 Flow Rate 36.7 C 69 22 H 153/94 H 97 Nasal Cannula 3 03/05/24 04:00 03/05/24 07:00 03/05/24 07:00 03/05/24 07:00 03/05/24 07:05 03/05/24 07:05 03/05/24 07:05 FiO2 25 03/05/24 07:00 Oxygen Flow Rate (L/min) 3 Oxygen Delivery Method Nasal Cannula Weight: 64.3 kg Body Mass Index (BMI) 25.1 Intake & Output: Intake and Output for Last 24 Hours 03/03/24 03/04/24 03/05/24 23:59 23:59 23:59 Intake Total 4686.67 / 4686.67 1206.4 / 1206.4 Output Total 100 / 100 Balance 4586.67 / 4586.67 1206.4 / 1206.4 Lab / Micro Data 03/05/24 03:50 03/05/24 03:50 Labs: Laboratory Results - last 24 hr 03/05/24 03:50: WBC 25.2 H, RBC 3.18 L, Hgb 8.5 L, Hct 28.4 L, MCV 89.3, MCH 26.7 L, MCHC 29.9 L, RDW Std Deviation 52.0 H, RDW Coeff of Deonte 15.9 H, Plt Count 287, MPV 9.7, Immature Gran % (Auto) 1.300 H, Neut % (Auto) 92.7 H, Lymph % (Auto) 3.0 L, [place] % (Auto) 2.8, Eos % (Auto) 0.0, Baso % (Auto) 0.2, Absolute Neuts (auto) 23.4 H, Absolute Lymphs (auto) 0.76 L, Nucleated RBC % 0.1, Differential Comment SCANNED, Sodium 144, Potassium 3.2 L, Chloride 111 H, Carbon Dioxide 28.0, Anion Gap 5, BUN 17, Creatinine 0.74, Estim Creat Clear Calc 54.90, Est GFR (MDRD) Af Amer 101, Est GFR (MDRD) Non-Af 83, BUN/Creatinine Ratio 23.1 H, Glucose 249 H, Calcium 8.2 L, Total Bilirubin 0.30, AST 6 L, ALT 8 L, Alkaline Phosphatase 60, Total Protein 6.0 L, Albumin 2.2 L, Globulin 3.8, A lbumin/Globulin Ratio 0.6 L Micro: Microbiology 03/04/24 10:00 Sputum, Induced/Lukens Gram Stain - Final ABG Data ABG results: ABG 03/04/24 10:04 Specimen Type ART Sample Site L Brach pH 7.36 Bicarbonate Actual 28.0 H Total CO2 30 Base Excess 3 H O2 Saturation 92 L O2 % 25.0 ABG pCO2 50.0 H ABG pO2 69 L Royal Test Positive Respiration Rate 12 O2 Delivery Device Adult Vent Vent Mode AC Tidal Volume 450.0 POC PEEP 5 Radiography Diagnostic Testing: Radiology Impression Echocardiogram 03/04/24 02:05 Interpretation Summary The estimated ejection fraction is 45-50 %. Mild LV systolic dysfunction Mild global LV hypokinesia Moderate eccentric MR Ordering Physician: Guero Ramirez Performed By: Colin Evans RCS Chest X-Ray 03/04/24 06:00 IMPRESSION: The right upper lobe pneumonia is again noted, slightly more dense than on the prior study due to increasing consolidation, but the area of consolidation has not increased in size. Electronically Signed: Rusty Rodriguez MD at 8:00 EDT , Rhythm Strip Rhythm Strip: Sinus Tach Rate: 105 Ectopy: PVC(s) Physical Exam Const alert and no apparent distress Constitutional Narrative: Up in bed. No acute distress. No respiratory distress. HEENT head/scalp atraumatic and moist oral mucous membranes Resp normal respiratory effort and no retractions Resp Narrative: Diminished breath sounds bilaterally. Cardio regular rate, regular rhythm, S1 normal heart sound and S2 normal heart sound GI normal to inspection, nondistended, normoactive bowel sounds, soft to palpation, non-tender and non-distended Extremity normal to inspection and no clubbing, cyanosis or edema Neuro Sensorium / Orientation: awake Assessment & Plan Assessment/Plan (1) Acute hypoxic on chronic hypercapnic respiratory failure: PLAN: Secondary to COPD exacerbation. Patient was seen by me on the and patient was very insistent on going home. At that time her lungs were clear and her resting and ambulatory pulse ox on her normal oxygen of 5 L/min was unremarkable. But unfortunately at home she got worse. There is now a right upper lobe infiltrate that was not present on previous chest x-ray imaging nor CAT scan from the previous admission. That likely complicated her respiratory status. Currently she is awake and alert but with her respiratory acidosis and hypercapnia, I feel the patient would benefit from being on the ventilator. With her having a tracheostomy, will get her back on the ventilator. Discussed with respiratory and placed in vent orders of assist-control, respiratory rate of 12, tidal volume of 450 and PEEP of 5. Do not anticipate patient requiring being on the ventilator very long because she is awake and alert at present. Since she already has a tracheostomy she does not require sedation. Will consult CCM. (2) Acute exacerbation of chronic obstructive pulmonary disease (COPD): PLAN: Ongoing. Continue with steroids as well as bronchodilators. Likely exacerbated by pneumonia. (3) Sepsis: QUALIFIERS: Sepsis acute organ dysfunction status: with acute organ dysfunction Sepsis type: sepsis due to unspecified organism Severe sepsis acute organ dysfunction type: encephalopathy Severe sepsis shock status: without septic shock Qualified Code(s): A41.9 - Sepsis, unspecified organism; R65.20 - Severe sepsis without septic shock; G93.41 - Metabolic encephalopathy PLAN: Septic shock present on admission. qSOFA of 2 with encephalopathy respiratory rate 29. Secondary to pneumonia Patient now on norepinephrine. PICC line placed (4) Gram-negative pneumonia: PLAN: Suspected given the patient's recent hospitalization. And now confirmed with possible Pseudomonas pneumonia Continue with pip-tazo. Discontinue vancomycin. Respiratory panel, COVID-19, influenza and RSV were previously negative. Will check sputum culture. Check strep and Legionella urinary antigens. (5) Elevated troponin: PLAN: Likely type II strain from the respiratory failure. Overall trending down from 28th. No additional workup at this time. (6) Acute encephalopathy: PLAN: Resolved Metabolic secondary to CO2 narcosis. There is mention in the patient's had consumed a gummy. Patient adamantly denies using marijuana nor any Gummies. No additional workup at this time unless her condition changes. PLAN: Plan VTE prophylaxis with enoxaparin. Charges/Coding Visit Charges Inpatient E&M: 27905 Subs Hosp L2
[2024-03-05 08:06] LABS: Magnesium 1.8 mg/dL (1.6-2.6); Phosphorus 1.6 mg/dL (2.5-4.9)
[2024-03-05] MEDS: Polyethylene Glycol 3350 17 GM PACKET PO (13:06)
[2024-03-05] MEDS: Lactulose 20 GM/30 ML UDC PO (13:06)
[2024-03-05] MEDS: Ascorbic Acid 500 MG Tablet 1000 MG PO ×2 (13:07→17:50)
[2024-03-05] MEDS: Aspirin E.C. 81 MG Tablet PO (13:07)
[2024-03-05] MEDS: DULoxetine Hcl 30 MG Capsule PO (13:08)
[2024-03-05] MEDS: Lactobacillis Acidophilus 1 CAP PO ×3 (13:08→20:05)
[2024-03-05] MEDS: Escitalopram Oxalate 20 MG Tablet PO (13:08)
[2024-03-05] MEDS: Enoxaparin 40 MG/0.4 ML Syringe SC (13:08)
[2024-03-05] MEDS: Cholecalciferol (Vit D3) 125 MCG CAPSULE (5,000 UNITS) PO (13:09)
[2024-03-05] MEDS: guaiFENesin/D-Methorphan TAB.SR.12H 2 TABLET PO ×2 (13:09→20:05)
[2024-03-05] MEDS: Zinc Sulfate 50 mg zinc (220 mg) ORAL capsule PO (13:10)
--- NOTE | 2024-03-05 13:17 | PN.CC_ITS ---
Objective Data Objective Data Vital Signs: Vital Signs Last response 3 Temperature 36.7 C 03/05/24 04:00 Temperature Source Temporal 03/05/24 04:00 Pulse Rate 69 03/05/24 07:00 Pulse Strength Normal (2+) 03/04/24 22:00 Respiratory Rate 22 H 03/05/24 07:00 Respiratory Effort Mechanically Ventilated 03/05/24 08:00 Respiratory Depth Normal 03/05/24 08:00 Respiratory Pattern Normal 03/05/24 08:00 Blood Pressure 153/94 H 03/05/24 07:00 Blood Pressure Mean 113 03/05/24 07:00 Blood Pressure Source Monitor 03/04/24 19:00 Blood Pressure Position Semi-Fowlers 03/04/24 16:00 Blood Pressure Location Left Arm 03/04/24 16:00 Pulse Ox 97 03/05/24 07:05 Oxygen Delivery Method Room Air 03/05/24 08:00 Oxygen Flow Rate (L/min) 3 03/05/24 07:05 Fraction of Inspired Oxygen (FIO2) 30 03/05/24 08:00 I&O: I&O Last 24 Hours 3 03/04/24 03/05/24 03/05/24 23:59 11:59 23:59 Intake Total 1008.60 / 4686.67 1206.4 / 1206.4 Output Total 100 / 100 Balance 908.60 / 4586.67 1206.4 / 1206.4 I&O: Total Stay 3 03/03/24 23:09 thru 03/05/24 12:19 Intake Total 5893.07 Output Total 100 Balance 5793.07 Current Meds Ordered / Administered: Current meds ordered / Administered 3 Generic Name Dose Route Start Last Admin Trade Name Freq PRN Reason Stop Dose Admin Albuterol Sulfate 2.5 mg 03/04/24 03:00 Albuterol 2.5 Mg/3 Ml Vial.Neb. INHALATION Q2H PRN PRN Dyspnea, wheezing Albuterol/Ipratropium 3 ml 03/04/24 06:00 03/05/24 06:57 Ipratropium/Albuterol Sulfate 3 Ml Ampul.Neb INHALATION 3 ml Q6HWA.RT WALTER Administration Aripiprazole 2 mg 03/04/24 22:00 03/04/24 21:02 Aripiprazole 2 Mg Tablet PO 2 mg QHS WALTER Administration Protocol Ascorbic Acid 1,000 mg 03/04/24 08:00 03/05/24 13:07 Ascorbic Acid 500 Mg Tablet PO 1,000 mg BIDCM WALTER Administration Aspirin 81 mg 03/04/24 08:00 03/05/24 13:07 Aspirin E.C. 81 Mg Tablet PO 81 mg DAILYCM WALTER Administration Cholecalciferol 125 mcg 03/04/24 10:00 03/05/24 13:09 Cholecalciferol (Vit D3) 125 Mcg Capsule (5,000 Units) PO 125 mcg DAILY WALTER Administration Duloxetine HCl 30 mg 03/04/24 10:00 03/05/24 13:08 Duloxetine Hcl 30 Mg Capsule PO 30 mg DAILY WALTER Administration Enoxaparin Sodium 40 mg 03/04/24 10:00 03/05/24 13:08 Enoxaparin 40 Mg/0.4 Ml Syringe SC 40 mg DAILY WALTER Administration Escitalopram Oxalate 20 mg 03/04/24 10:00 03/05/24 13:08 Escitalopram Oxalate 20 Mg Tablet PO 20 mg DAILY WALTER Administration Guaifenesin 2 tablet 03/04/24 10:00 03/05/24 13:09 Guaifenesin/D-Methorphan Tab.Sr.12h PO 2 tablet BID WALTER Administration Sodium Chloride 1,000 mls @ 80 mls/hr 03/03/24 23:45 03/05/24 03:48 IV 80 mls/hr .[id number] WALTER Administration Vancomycin IV-PHARMACY TO DOSE 500 mls @ 250 mls/hr 03/04/24 01:59 1 each/ Sodium Chloride IV PRN PRN Rx to Dose Protocol Pantoprazole Sodium 40 mg/ 110 mls @ 330 mls/hr 03/04/24 10:00 03/04/24 09:50 Sodium Chloride IV Infused DAILY WALTER Infusion Piperacillin Sod/Tazobactam 50 mls @ 12.5 mls/hr 03/04/24 06:00 03/05/24 06:08 Sod 3.375 gm/ Sodium Chloride IV 12.5 mls/hr Q8 WALTER Administration Sodium Chloride 250 mls @ 15 mls/hr 03/04/24 03:03 IV .[id number] PRN Additional IVPB Infusion Sodium Chloride 250 mls @ 15 mls/hr 03/04/24 03:03 IV .[id number] PRN Saline Flush Vancomycin HCl 500 mg in 100 mls @ 100 mls/hr 03/04/24 14:00 03/05/24 05:21 IV Infused Q12H WALTER Infusion Norepinephrine Bitartrate 8 mg 250 mls @ 9.375 mls/hr 03/04/24 04:35 03/05/24 07:00 / Sodium Chloride CONT INF 5 mcg/min .[id number] WALTER 9.4 mls/hr Titration Protocol 5 MCG/MIN Ketorolac Tromethamine 15 mg 03/04/24 02:05 Ketorolac 15 Mg/Ml Vial IV 03/09/24 02:06 Q8H PRN PRN Pain 1-10 or Fever Methylprednisolone 40 mg 03/04/24 14:00 03/05/24 06:08 Methylprednisolone 40 Mg/Ml Vial IV 40 mg Q8 WALTER Administration Mirtazapine 7.5 mg 03/04/24 22:00 03/04/24 21:01 Mirtazapine 15 Mg Tablet PO 7.5 mg QHS WALTER Administration Nystatin 500,000 unit 03/04/24 06:00 03/05/24 05:32 Nystatin 500,000 Unit/5 Ml Po.Syringe ([facility]) PO Not Given TID WALTER Phenytoin Sodium 100 mg 03/04/24 06:00 03/05/24 05:32 Phenytoin Na 100 Mg Capsule PO Not Given Q8 WALTER Sodium Chloride 10 - 40 ml 03/04/24 03:03 03/04/24 21:33 0.9% Saline Lock 10 Ml Syringe IV 40 ml UD PRN Administration SALINE FLUSH Vancomycin Protocol 1 lab 03/05/24 11:30 03/05/24 13:11 Vancomycin Trough/Random Due 03/05/24 15:30 Not Given DAILY WALTER Zinc Sulfate 50 mg 03/04/24 10:00 03/05/24 13:10 Zinc Sulfate 50 Mg Zinc (220 Mg) Oral Capsule PO 50 mg DAILY WALTER Administration Zolpidem Tartrate 5 mg 03/04/24 21:22 03/04/24 21:32 Zolpidem Tartrate 5 Mg Tablet PO 5 mg QHS PRN PRN Administration SLEEP Lab / Micro Data 03/05/24 03:50 03/05/24 03:50 Labs: Laboratory Results - last 24 hr 03/05/24 03:50: WBC 25.2 H, RBC 3.18 L, Hgb 8.5 L, Hct 28.4 L, MCV 89.3, MCH 26.7 L, MCHC 29.9 L, RDW Std Deviation 52.0 H, RDW Coeff of [place]onte 15.9 H, Plt Count 287, MPV 9.7, Immature Gran % (Auto) 1.300 H, Neut % (Auto) 92.7 H, Lymph % (Auto) 3.0 L, [place] % (Auto) 2.8, Eos % (Auto) 0.0, Baso % (Auto) 0.2, Absolute Neuts (auto) 23.4 H, Absolute Lymphs (auto) 0.76 L, Nucleated RBC % 0.1, Differential Comment SCANNED, Sodium 144, Potassium 3.2 L, Chloride 111 H, Carbon Dioxide 28.0, Anion Gap 5, BUN 17, Creatinine 0.74, Estim Creat Clear Calc 54.90, Est GFR (MDRD) Af Amer 101, Est GFR (MDRD) Non-Af 83, BUN/Creatinine Ratio 23.1 H, Glucose 249 H, Calcium 8.2 L, Phosphorus 1.6 L, Magnesium 1.8, Total Bilirubin 0.30, AST 6 L, ALT 8 L, Alkaline Phosphatase 60, Total Protein 6.0 L, Albumin 2.2 L, Globulin 3.8, Albumin/Globulin Ratio 0.6 L Micro: Microbiology 03/04/24 10:00 Sputum, Induced/Lukens Gram Stain - Final 03/04/24 10:00 Sputum, Induced/Lukens Respiratory Culture - Preliminary GNR Poss Pseudomonas sp Rhythm Strip Rhythm Strip: Sinus Tach Rate: 105 Ectopy: PVC(s) Imaging Radiology Impression Echocardiogram 03/04/24 02:05 Interpretation Summary The estimated ejection fraction is 45-50 %. Mild LV systolic dysfunction Mild global LV hypokinesia Moderate eccentric MR Ordering Physician: Guero Ramirez Performed By: Colin Evans RCS Assessment and Plan . Assessment and plan: Patient seen and examined Chart and data reviewed HPI 68 yo chronically ill and debilitated woman, former smoker, w/ COPD, chronic tracheostomy status, admitted 03/04/24 w/ confusion and fever. She was just discharged from this facility the day prior. Noted fever and tachycardia in the ED. She apparently uses supplemental O2 chronically but does not require PPV support. pCXR reveals a wedge-shaped opacity in the RUL. Lab significant for WBC 30L. LA is WNL. ABG performed and reveals acute and chronic hypercapnia. She has received IV ABX, steroids, inhaled BD. MV support has been initiated via trach tube. She is awake and appropriate. MV 10-11 LPM, PIP 25, O2 0.25 She transiently required NE for BP support, but it is now off. 03/05/24 She is awake and alert O2 via N/C w/ PMV Afebrile Low dose NE for BP SPCX reveals Pseudomonas PHYSICAL EXAM GEN NAD VS as above HEENT PERRL NECK midline tube COR RRR CHEST diminished ABD soft EXT minimal edema SKIN w/d GODWIN NF ASSESSMENT 1. Acute respiratory failure requiring MV support 2. Chronic tracheostomy status 3. Suspected HCAP - Pseudomonas 4. Underlying COPD 5. Confusion - metabolic encephalopathy ==> IMPROVED 6. H/O VTED, ASCVD, and chronic CHF TREATMENT PLAN -supplemental O2 -PPV support as needed if any distress -inhaled BD and IV corticosteroids -IV ABX - could likely stop VANCO soon -VTE ppx Critical Care Time: 50 min The entirety of this encounter was done via Telemedicine
[2024-03-05] MEDS: Pantoprazole Sodium 40 MG in 0.9% Normal Saline (100mL MB+) 100 ML 80 MG IV (13:27)
[2024-03-05] MEDS: Phenytoin Na 100 MG Capsule PO ×2 (13:29→20:05)
[2024-03-05] MEDS: Nystatin 500,000 UNIT/5 ML PO.SYRINGE (WCH) 500000 UNIT PO ×2 (13:30→20:06)
[2024-03-05] MEDS: 0.9% Saline Lock 10 ML Syringe IV ×2 (13:41→20:05)
[2024-03-05] MEDS: LORazepam 0.5 MG Tablet PO ×2 (13:46→21:58)
[2024-03-05 14:13] LABS: Vancomycin, Trough Level 10.8 ug/mL (5.0-15.0)
--- NOTE | 2024-03-05 14:33 | PCM.RX.CS ---
Consult Antibiotic Management Pharmacy has been consulted to manage selected antibiotic: Vancomycin Type of Intervention Type of Consult: Follow-up Labs Labs: Sodium 144 mmol/L (136-145) 03/05/24 03:50 Potassium 3.2 mmol/L (3.5-5.1) L 03/05/24 03:50 Chloride 111 mmol/L (98-107) H 03/05/24 03:50 Carbon Dioxide 28.0 mmol/L (21.0-32.0) 03/05/24 03:50 Anion Gap 5 (5-15) 03/05/24 03:50 BUN 17 mg/dL (7-18) 03/05/24 03:50 Creatinine 0.74 mg/dL (0.55-1.02) 03/05/24 03:50 Est GFR (MDRD) Af Amer 101 mL/min (>60) 03/05/24 03:50 Est GFR (MDRD) Non-Af 83 mL/min (>60) 03/05/24 03:50 BUN/Creatinine Ratio 23.1 RATIO (10-20) H 03/05/24 03:50 Glucose 249 mg/dL (74-106) H 03/05/24 03:50 Vancomycin Trough 10.8 ug/mL (5.0-15.0) 03/05/24 13:30 Microbiology Microbiology: Microbiology 03/04/24 10:00 Sputum, Induced/Lukens Gram Stain - Final 03/04/24 10:00 Sputum, Induced/Lukens Respiratory Culture - Preliminary GNR Poss Pseudomonas sp Goal Trough Goal Trough: 15-20 mcg/mL Pharmacy Plan for Drug Dosing Pharmacy Plan for Drug Dosing: VANCOMYCIN LEVEL RECEIVED Current Vancomycin Dose: 500mg IV Q12hr Number of Doses Received: 3 (ED dose + 2 scheduled doses) Vancomycin Level: 10.8 Hours Since Last Dose: 10hr Renal Function: 0.74 Renal Function Trend: 55 mL/min Lab/Micro: Cx showing GNR Vancomycin Plan/Comments: patient had a trough drawn which resulted in a value of 10.8 (goal 15-20). Will dc the current dose and increase the patient to 1000mg IV Q12hr to start 03/05 @1500 Pending Level: 03/07/24 @1430, prior to 4th dose of new regimen Pharmacy Service will continue to monitor and adjust dosing as required.
[2024-03-05 14:45] LABS: Amphetamine Urine VISTA NEGATIVE (<1000 ng/mL); Barbiturate Urine VISTA NEGATIVE (< 200 ng/mL); Benzodiazepine Urine VISTA NEGATIVE (< 200 ng/mL); Cocaine Urine VISTA NEGATIVE (< 300 ng/mL); Ecstacy Urine VISTA NEGATIVE (< 500 ng/mL); Methadone Urine VISTA NEGATIVE (< 300 ng/mL); PCP Urine VISTA NEGATIVE (< 25 ng/mL); THC Urine VISTA NEGATIVE (< 50 ng/mL); Vista UDS pH Range 6
[2024-03-05] MEDS: Potassium Chloride Oral Tablet 20 MEQ 40 MEQ PO (15:56)
[2024-03-05] MEDS: Na Biphos/Potassium Phosphate PACKET 1 PACKET PO (15:56)
[2024-03-05] MEDS: Magnesium Sulfate 2 GM in Dextrose 5%-Water (100mL Bag) 100 ML IV (15:58)
[2024-03-05] MEDS: TITRATION PARAMETER CHANGE 1 EACH IV (17:50)
[2024-03-05] MEDS: ARIPiprazole 2 MG Tablet PO (20:05)
[2024-03-05] MEDS: Mirtazapine 15 MG Tablet 7.5 MG PO (20:05)
[2024-03-05] MEDS: Zolpidem Tartrate 5 MG Tablet PO (20:07)
[2024-03-06] VITALS (16 sets, daily range): BP systolic 115–144; BP diastolic 57–115; PULSE 67–106; RESP 12–25; TEMP 35.9–36.8; O2SAT 93–100; BMI 25.1
[2024-03-06] MEDS: Piperacil/Tazobactam 3.375 GM in 0.9% Normal Saline (50mL MB+) 50 ML IV ×3 (05:28→21:27)
[2024-03-06] MEDS: Nystatin 500,000 UNIT/5 ML PO.SYRINGE (WCH) 500000 UNIT PO ×3 (05:29→21:21)
[2024-03-06] MEDS: 0.9% Normal Saline (1000mL) 1,000 ML 80 ML IV ×2 (05:29→16:15)
[2024-03-06] MEDS: Phenytoin Na 100 MG Capsule PO ×3 (05:29→20:58)
[2024-03-06] MEDS: LORazepam 0.5 MG Tablet PO ×3 (05:32→18:47)
[2024-03-06 05:46] LABS: Absolute Lymphocyte Count 1.03 X10^3/uL (0.83-4.51); Absolute Neutrophil Count 12.7 X10^3/uL (2.0-7.7); Basophil# 0.02 X10^3/uL; Basophil% 0.1 % (0-1); Hematocrit 27.5 % (37-47); Hemoglobin 8.2 g/dL (12.0-15.0); Lymphocyte # 1.03 X10^3/ul (0.83-4.51); Mean Corp Hgb Conc 29.8 g/dL (32-36); Mean Corpuscular Hgb 26.8 pg (27.0-32.0); Mean Corpuscular Volume 89.9 fL (81-99); Monocyte# 0.84 X10^3/uL; Monocyte% 5.7 % (0-10); NRBC Flagged by Analyzer 0 % (0-5); Neutrophil # 12.67 X10^3/uL (2.7-7.7); Platelet Count 248 K/mm3 (150-450); RBC Distribution Width CV 16.1 % (11.6-14.6); Red Blood Count 3.06 M/mm3 (4.2-5.4); White Blood Count 14.7 K/mm3 (4.4-11.0)
[2024-03-06 06:06] LABS: Phosphorus 2.6 mg/dL (2.5-4.9)
[2024-03-06 06:16] LABS: Anion Gap 3 (5-15); BUN 12 mg/dL (7-18); Chloride 113 mmol/L (98-107); EST Glomerular Filtration Rate 105 mL/min (>60); Est Glom Filt Rate - Afr Amer 127 mL/min (>60); Estimated Creatinine Clearance 59.93 ml/min; Glucose 113 mg/dL (74-106); Magnesium 2.1 mg/dL (1.6-2.6); Potassium 3.5 mmol/L (3.5-5.1); Sodium Level 145 mmol/L (136-145)
[2024-03-06] MEDS: Ipratropium/Albuterol Sulfate 3 ML AMPUL.NEB INHALATION ×2 (07:07→13:26)
--- NOTE | 2024-03-06 07:21 | PN.CC_ITS ---
Assessment & Plan Assessment/Plan (1) Acute hypoxic on chronic hypercapnic respiratory failure: (2) Acute exacerbation of chronic obstructive pulmonary disease (COPD): (3) Gram-negative pneumonia: PLAN: Plan RECOMMENDATIONS: 1. Supplemental oxygen to maintain saturations 88 to 92%. 2. Nightly PAP therapy. 3. Continue scheduled bronchodilators and steroids. 4. Antimicrobials as ordered. 5. Continue appropriate DVT prophylaxis. 6. Physical therapy to work with the patient. 7. The patient is stable for transfer out of the intensive care unit. IMPRESSIONS: 1. Acute on chronic combined respiratory failure The patient has known end-stage COPD and chronic hypoxemic respiratory failure, along with baseline CO2 retention. She has questionable compliance with her outpatient noninvasive ventilator. The patient was admitted with a COPD exacerbation secondary to Pseudomonas pneumonia. She has improved from a respiratory perspective. Recommend continuing supplemental oxygen throughout the day on PAP therapy nightly. The patient will be continued on appropriate antimicrobial therapy along with scheduled bronchodilators and IV steroids. Outpatient pulmonary follow-up within 2 weeks of hospital discharge is warranted. 2. History of end-stage COPD/chronic hypoxemic respiratory failure/obstructive sleep apnea/frequent COPD exacerbations The patient has a known history of end-stage COPD with questionable outpatient medical compliance. The patient has had compliance issues in the past related to her supplemental oxygen use and noninvasive ventilator utilization. She will be maintained on scheduled bronchodilators for now. Management as noted above. 3. History of hemorrhagic CVA/former tobacco dependency/history of cardiomyopathy/anxiety/depression Complicates care, management, recovery and prognosis. Physical therapy to work with the patient. This note was generated with [employer] dictation software. It may contain incorrect words, spelling, and punctuation that were not noted in checking the note before signing. Subjective Subjective The patient was seen and examined at the bedside this morning. Events from the last 24 hours have been reviewed. The patient is currently afebrile, hemodynamically stable and maintaining appropriate oxygen saturations on 1 L/min. The patient was tolerant of PAP therapy overnight. If you recall, the patient is well-known to our pulmonary medicine office. However, I personally last saw the patient in our office in September 2021, as she is admitted to the hospital quite frequently. She has a known history of end-stage COPD and chronic hypoxemic respiratory failure, along with obstructive sleep apnea. Due to her frequency of COPD exacerbations, the patient in the past was started on an astral noninvasive ventilator. However, the patient readily admitted that she does not utilize the therapy on a regular basis. She is on maximum triple therapy regimen on an outpatient basis. White blood cell count this morning has improved to 15,000. Hemoglobin and platelet count are stable. Chemistry profile was unremarkable. The patient remains on scheduled bronchodilators, steroids and antimicrobials. Her Levophed was weaned off completely yesterday evening. Objective Data Objective Data The patient's most recent lab work, culture data and imaging studies have all been personally reviewed. Sputum culture is demonstrating growth of 3+ Pseudomonas. Vital Signs: Vital Signs Temp Pulse Resp BP Pulse Ox O2 Del Method O2 Flow Rate 98.2 F 86 16 135/81 H 99 Nasal Cannula 1 03/06/24 05:00 03/06/24 07:10 03/06/24 07:10 03/06/24 07:00 03/06/24 07:10 03/06/24 07:10 03/06/24 07:10 FiO2 25 03/06/24 04:00 Oxygen Flow Rate (L/min) 1 Oxygen Delivery Method Nasal Cannula Weight: 141 lb 15.643 oz Body Mass Index (BMI) 25.1 Intake & Output: Intake and Output for Last 24 Hours 03/04/24 03/05/24 03/06/24 23:59 23:59 23:59 Intake Total 4686.67 / 4686.67 3666.37 / 3666.37 1058 / 1058 Output Total 100 / 100 600 / 600 600 / 600 Balance 4586.67 / 4586.67 3066.37 / 3066.37 458 / 458 Lab / Micro Data Attestation: I reviewed the patient's lab results. 03/06/24 05:32 03/06/24 05:32 Labs: Laboratory Results - last 24 hr 03/05/24 03:50: Phosphorus 1.6 L, Magnesium 1.8 03/05/24 13:30: Vancomycin Trough 10.8 03/05/24 14:00: Urine Opiates Screen NEGATIVE, Urine Methadone Screen NEGATIVE, Ur Barbiturates Screen NEGATIVE, Ur Phencyclidine Scrn NEGATIVE, Ur Amphetamines Screen NEGATIVE, MDMA (Ecstasy) Screen NEGATIVE, U Benzodiazepines Scrn NEGATIVE, Urine Cocaine Screen NEGATIVE, U Cannabinoids Screen NEGATIVE, Ur Drug Screen Comment 03/06/24 05:32: WBC 14.7 H, RBC 3.06 L, Hgb 8.2 L, Hct 27.5 L, MCV 89.9, MCH 26.8 L, MCHC 29.8 L, RDW Std Deviation 53.0 H, RDW Coeff of [place]onte 16.1 H, Plt Count 248, MPV 10.0, Immature Gran % (Auto) 1.200 H, Neut % (Auto) 86.0 H, Lymph % (Auto) 7.0 L, [place] % (Auto) 5.7, Eos % (Auto) 0.0, Baso % (Auto) 0.1, Absolute Neuts (auto) 12.7 H, Absolute Lymphs (auto) 1.03, Nucleated RBC % 0, Sodium 145, Potassium 3.5, Chloride 113 H, Carbon Dioxide 29.0, Anion Gap 3 L, BUN 12, Creatinine 0.60, Estim Creat Clear Calc 59.93, Est GFR (MDRD) Af Amer 127, Est GFR (MDRD) Non-Af 105, BUN/Creatinine Ratio 20.0, Glucose 113 H, Calcium 8.0 L, Phosphorus 2.6, Magnesium 2.1 Micro: Microbiology 03/05/24 14:00 Urine, Clean Catch Legionella Antigen - Final 03/05/24 14:00 Urine, Clean Catch Streptococcus pneumoniae Antigen (M - Final 03/04/24 10:00 Sputum, Induced/Lukens Gram Stain - Final 03/04/24 10:00 Sputum, Induced/Lukens Respiratory Culture - Preliminary GNR Poss Pseudomonas sp Rhythm Strip Rhythm Strip: Sinus Tach Rate: 105 Ectopy: PVC(s) Physical Exam Const alert and no apparent distress General Appearance: cooperative HEENT normocephalic and head/scalp atraumatic Eyes PERRL, EOMs intact bilaterally and conjunctivae normal Neck supple Neck Narrative: Stable tracheostomy site with [place] valve in place General: trachea midline Chest inspection of chest normal Resp normal respiratory effort Auscultation: diminished lung sounds Cardio regular rate and regular rhythm GI normal to inspection, nondistended, normoactive bowel sounds Extremity no clubbing, cyanosis or edema Skin no rashes or lesions noted Neuro CN's II-XII intact bilaterally, moves all extremities and no focal motor deficits Psych Mood & Affect: flat affect Charges/Coding Visit Charges Inpatient E&M: 57335 Subs Hosp L3
--- NOTE | 2024-03-06 08:00 | PN.HOSP_ITS ---
Reason for Visit Reason for Visit: Diagnoses Sepsis, unspecified organism (03/04/24) Encephalopathy, unspecified (03/04/24) Metabolic encephalopathy (03/04/24) Old myocardial infarction (03/04/24) Takotsubo syndrome (03/04/24) Nontraumatic intracerebral hemorrhage, unspecified (03/04/24) Cerebral infarction, unspecified (03/04/24) Pneumonia due to other Gram-negative bacteria (03/04/24) Pneumonia, unspecified organism (03/04/24) Chronic obstructive pulmonary disease with (acute) exacerbation (03/04/24) Acute respiratory failure with hypoxia (03/04/24) Chronic respiratory failure with hypercapnia (03/04/24) Severe sepsis without septic shock (03/04/24) Other specified abnormal findings of blood chemistry (03/04/24) Nosocomial condition (03/04/24) Other specified health status (03/04/24) Objective Data Objective Data Vital Signs: Vital Signs Temp Pulse Resp BP Pulse Ox O2 Del Method O2 Flow Rate 98.2 F 86 16 135/81 H 99 Nasal Cannula 1 03/06/24 05:00 03/06/24 07:10 03/06/24 07:10 03/06/24 07:00 03/06/24 07:10 03/06/24 07:10 03/06/24 07:10 FiO2 25 03/06/24 04:00 Oxygen Flow Rate (L/min) 1 Oxygen Delivery Method Nasal Cannula Weight: 141 lb 15.643 oz Body Mass Index (BMI) 25.1 Intake & Output: Intake and Output for Last 24 Hours 03/04/24 03/05/24 03/06/24 23:59 23:59 23:59 Intake Total 4686.67 / 4686.67 3666.37 / 3666.37 1058 / 1058 Output Total 100 / 100 600 / 600 600 / 600 Balance 4586.67 / 4586.67 3066.37 / 3066.37 458 / 458 Lab / Micro Data 03/06/24 05:32 03/06/24 05:32 Labs: Laboratory Results - last 24 hr 03/05/24 03:50: Phosphorus 1.6 L, Magnesium 1.8 03/05/24 13:30: Vancomycin Trough 10.8 03/05/24 14:00: Urine Opiates Screen NEGATIVE, Urine Methadone Screen NEGATIVE, Ur Barbiturates Screen NEGATIVE, Ur Phencyclidine Scrn NEGATIVE, Ur Amphetamines Screen NEGATIVE, MDMA (Ecstasy) Screen NEGATIVE, U Benzodiazepines Scrn NEGATIVE, Urine Cocaine Screen NEGATIVE, U Cannabinoids Screen NEGATIVE, Ur Drug Screen Comment 03/06/24 05:32: WBC 14.7 H, RBC 3.06 L, Hgb 8.2 L, Hct 27.5 L, MCV 89.9, MCH 26.8 L, MCHC 29.8 L, RDW Std Deviation 53.0 H, RDW Coeff of Deonte 16.1 H, Plt Count 248, MPV 10.0, Immature Gran % (Auto) 1.200 H, Neut % (Auto) 86.0 H, Lymph % (Auto) 7.0 L, Lewis % (Auto) 5.7, Eos % (Auto) 0.0, Baso % (Auto) 0.1, Absolute Neuts (auto) 12.7 H, Absolute Lymphs (auto) 1.03, Nucleated RBC % 0, Sodium 145, Potassium 3.5, Chloride 113 H, Carbon Dioxide 29.0, Anion Gap 3 L, BUN 12, Creatinine 0.60, Estim Creat Clear Calc 59.93, Est GFR (MDRD) Af Amer 127, Est GFR (MDRD) Non-Af 105, BUN/Creatinine Ratio 20.0, Glucose 113 H, Calcium 8.0 L, Phosphorus 2.6, Magnesium 2.1 Micro: Microbiology 03/04/24 00:45 Blood Culture (Wb) - Right Forearm Blood Culture - Preliminary No growth in 48 hours. 03/05/24 14:00 Urine, Clean Catch Legionella Antigen - Final 03/05/24 14:00 Urine, Clean Catch Streptococcus pneumoniae Antigen (M - Final 03/04/24 10:00 Sputum, Induced/Lukens Gram Stain - Final 03/04/24 10:00 Sputum, Induced/Lukens Respiratory Culture - Preliminary GNR Poss Pseudomonas sp Rhythm Strip Rhythm Strip: Sinus Tach Rate: 105 Ectopy: PVC(s) Physical Exam Narrative Seen and examined. Patient sitting upright and eating her breakfast. Shortness of breath is better. Denies any chest pain. She denies cough, mucus expectoration or chest tightness. No fever Physical exam: General: Alert, Oriented x3, Cooperative HEENT: Atraumatic, PERRLA, EOMI, Normocephalic Oral: No Gingival or Mucosal Lesions/ Ulcerations Neck: Valve tracheostomy. Supple, No JVD, Negative Carotid Bruits Chest wall/Lungs: Air entry diminished in bilateral lung bases. Bilateral coarse expiratory rhonchi Cardiovascular: Regular rate, Regular Rhythm, Normal S1, Normal S2, No M/G/R Abdomen: Bowel Sounds Present, Soft, Non Tender, Non-Distended : No dysuria. No renal angle tenderness. No suprapubic tenderness. Extremities: No edema, Capillary Refill Less than 3 Seconds Skin: No rashes, No breakdown. Musculoskeletal: No Tenderness to Palpation of Joints or Extremities. ROM restricted Neurological: Cranial nerves II-XII grossly intact, DTR 2+/4. No acute focal neurological deficit. Psych/Mental Status: Normal Affect, Appropriate. Assessment & Plan Assessment/Plan (1) Acute hypoxic on chronic hypercapnic respiratory failure: PLAN: Secondary to COPD exacerbation. Patient was insistent on going home on 03/03. As per documentation, lungs are clear and she deferred 5 L of oxygen on ambulation. She got worse at home. She had right upper lobe infiltrate 1. Chest x-ray not present on previous CT scan on previous admission. She had respiratory acidosis and hypercapnia Patient also noted return to her home Trelegy and she has tracheostomy. Patient was on ventilator. Patient was evaluated by employee wellness/fitness coordinator recommended PAP at night, scheduled bronchodilator and steroid. PT and OT. Patient stable for transfer to PCU (2) Acute exacerbation of chronic obstructive pulmonary disease (COPD): PLAN: Likely exacerbated by pneumonia. (3) Sepsis: QUALIFIERS: Sepsis type: sepsis due to unspecified organism S epsis acute organ dysfunction status: with acute organ dysfunction Severe sepsis acute organ dysfunction type: encephalopathy Severe sepsis shock status: without septic shock Qualified Code(s): A41.9 - Sepsis, unspecified organism; R65.20 - Severe sepsis without septic shock; G93.41 - Metabolic encephalopathy PLAN: Septic shock, present on admission. qSOFA of 2 with encephalopathy respiratory rate 29. Secondary to pneumonia Patient of Levophed for more than 24 hours. PICC line. Leukocytosis improving. Was 25.2% with immature granulocyte improved to 14.7%. Mainly neutrophil. (4) Gram-negative pneumonia: PLAN: Suspected given the patient's recent hospitalization. Sputum culture shows Pseudomonas aeruginosa 3+. Continue with pip-tazo. Discontinue vancomycin. Respiratory panel, COVID-19, influenza and RSV were previously negative. Urinary antigens are negative (5) Elevated troponin: PLAN: Likely type II strain from the respiratory failure. Overall trending down from 28th. No additional workup at this time. (6) Acute encephalopathy: PLAN: Resolved Metabolic secondary to CO2 narcosis. There is mention in the patient's had consumed a gummy. Patient adamantly denies using marijuana nor any Gummies. No additional workup at this time unless her condition changes. PLAN: Plan VTE prophylaxis with enoxaparin. Charges/Coding Visit Charges Inpatient E&M: 01603 Subs Hosp L3
[2024-03-06] MEDS: Ascorbic Acid 500 MG Tablet 1000 MG PO ×2 (08:24→16:15)
[2024-03-06] MEDS: guaiFENesin/D-Methorphan TAB.SR.12H 2 TABLET PO ×2 (08:25→20:59)
[2024-03-06] MEDS: Lactobacillis Acidophilus 1 CAP PO ×4 (08:25→20:58)
[2024-03-06] MEDS: DULoxetine Hcl 30 MG Capsule PO (08:26)
[2024-03-06] MEDS: Aspirin E.C. 81 MG Tablet PO (08:26)
[2024-03-06] MEDS: Zinc Sulfate 50 mg zinc (220 mg) ORAL capsule PO (08:26)
[2024-03-06] MEDS: Cholecalciferol (Vit D3) 125 MCG CAPSULE (5,000 UNITS) PO (08:28)
[2024-03-06] MEDS: Escitalopram Oxalate 20 MG Tablet PO (08:28)
[2024-03-06] MEDS: Enoxaparin 40 MG/0.4 ML Syringe SC (08:29)
[2024-03-06] MEDS: Pantoprazole Sodium 40 MG in 0.9% Normal Saline (100mL MB+) 100 ML 330 MG IV (08:33)
[2024-03-06] MEDS: Ketorolac 15 MG/ML Vial IV (11:38)
[2024-03-06] MEDS: Mirtazapine 15 MG Tablet 7.5 MG PO (20:58)
[2024-03-06] MEDS: ARIPiprazole 2 MG Tablet PO (20:59)
[2024-03-06] MEDS: Zolpidem Tartrate 5 MG Tablet PO ×2 (22:22→23:07)
[2024-03-07] MEDS: LORazepam 0.5 MG Tablet PO ×2 (03:15→15:59)
[2024-03-07 03:45] VITALS: BP 143/76; PULSE 94; RESP 18; TEMP 36.2; O2SAT 97
[2024-03-07 05:00] VITALS: BMI 25.0
[2024-03-07] MEDS: Piperacil/Tazobactam 3.375 GM in 0.9% Normal Saline (50mL MB+) 50 ML IV ×3 (05:46→20:55)
[2024-03-07] MEDS: Phenytoin Na 100 MG Capsule PO ×3 (05:46→20:50)
[2024-03-07] MEDS: Nystatin 500,000 UNIT/5 ML PO.SYRINGE (WCH) 500000 UNIT PO ×3 (05:47→20:51)
[2024-03-07 06:58] LABS: Absolute Lymphocyte Count 2.04 X10^3/uL (0.83-4.51); Absolute Neutrophil Count 11.2 X10^3/uL (2.0-7.7); Basophil# 0.08 X10^3/uL; Basophil% 0.5 % (0-1); Eosinophil# 0.01 X10^3/uL; Eosinophils% 0.1 % (0-5); Hematocrit 31.9 % (37-47); Hemoglobin 9.4 g/dL (12.0-15.0); Lymphocyte # 2.04 X10^3/ul (0.83-4.51); Lymphocyte % 13.7 % (19-41); Mean Corp Hgb Conc 29.5 g/dL (32-36); Mean Corpuscular Hgb 26.3 pg (27.0-32.0); Mean Corpuscular Volume 89.4 fL (81-99); Mean Platelet Vol. 10.6 fl (6.2-12.0); Monocyte% 6.7 % (0-10); NRBC Flagged by Analyzer 0.1 % (0-5); Neutrophil # 11.17 X10^3/uL (2.7-7.7); Neutrophil % 75.1 % (47-70); Platelet Count 342 K/mm3 (150-450); RBC Distribution Width CV 16.1 % (11.6-14.6); RBC Distribution Width SD 53.2 fl (35.1-43.9); Red Blood Count 3.57 M/mm3 (4.2-5.4); White Blood Count 14.9 K/mm3 (4.4-11.0)
[2024-03-07 07:19] VITALS: PULSE 98; RESP 20; O2SAT 96
[2024-03-07] MEDS: Ipratropium/Albuterol Sulfate 3 ML AMPUL.NEB INHALATION (07:19)
[2024-03-07 07:55] LABS: Anion Gap 3 (5-15); BUN 22 mg/dL (7-18); BUN/Creat Ratio 29.1 RATIO (10-20); Calcium,Total 8.6 mg/dL (8.5-10.1); Chloride 108 mmol/L (98-107); Creatinine, Serum 0.76 mg/dL (0.55-1.02); EST Glomerular Filtration Rate 81 mL/min (>60); Est Glom Filt Rate - Afr Amer 98 mL/min (>60); Estimated Creatinine Clearance 59.76 ml/min; Glucose 108 mg/dL (74-106); Potassium 4.1 mmol/L (3.5-5.1); Sodium Level 141 mmol/L (136-145)
--- NOTE | 2024-03-07 08:32 | PN.CC_ITS ---
Assessment & Plan Assessment/Plan (1) Acute hypoxic on chronic hypercapnic respiratory failure: (2) Acute exacerbation of chronic obstructive pulmonary disease (COPD): (3) Gram-negative pneumonia: PLAN: Plan RECOMMENDATIONS: 1. Supplemental oxygen to maintain saturations 88 to 92%. 2. Nightly PAP therapy. 3. Continue scheduled bronchodilators and steroids. Recommend prednisone taper at discharge. 4. Antimicrobials as ordered to complete at least 7 days of therapy. 5. Continue appropriate DVT prophylaxis. 6. Physical therapy to work with the patient. 7. Outpatient follow-up in the pulmonary medicine office within 2 weeks of discharge is recommended. IMPRESSIONS: 1. Acute on chronic combined respiratory failure The patient has known end-stage COPD and chronic hypoxemic respiratory failure, along with baseline CO2 retention. She has questionable compliance with her outpatient noninvasive ventilator. The patient was admitted with a COPD exacerbation secondary to Pseudomonas pneumonia. She has improved from a respiratory perspective. Recommend continuing supplemental oxygen throughout the day on PAP therapy nightly. The patient will be continued on appropriate antimicrobial therapy along with scheduled bronchodilators and IV steroids. Outpatient pulmonary follow-up within 2 weeks of hospital discharge is warranted. 2. History of end-stage COPD/chronic hypoxemic respiratory failure/obstructive sleep apnea/frequent COPD exacerbations The patient has a known history of end-stage COPD with questionable outpatient medical compliance. The patient has had compliance issues in the past related to her supplemental oxygen use and noninvasive ventilator utilization. She will be maintained on scheduled bronchodilators for now. Management as noted above. 3. History of hemorrhagic CVA/former tobacco dependency/history of cardiomyopathy/anxiety/depression Complicates care, management, recovery and prognosis. Physical therapy to work with the patient. This note was generated with [employer] dictation software. It may contain incorrect words, spelling, and punctuation that were not noted in checking the note before signing. Subjective Subjective The patient was seen and examined at the bedside this morning. Events from the last 24 hours have been reviewed. The patient is currently afebrile, hemodynamically stable and maintaining appropriate oxygen saturations on 3 L/min via nasal cannula. No overnight events were reported. White count is stable at 15,000 with a hemoglobin of 9.4 g/dL. The patient seems anxious to go home. Objective Data Objective Data The patient's most recent lab work, culture data and imaging studies have all been personally reviewed. Sputum culture is demonstrating growth of 3+ Pseudomonas. Vital Signs: Vital Signs Temp Pulse Resp BP Pulse Ox O2 Del Method O2 Flow Rate 97.1 F L 94 18 143/76 H 97 Nasal Cannula 1 03/07/24 03:45 03/07/24 03:45 03/07/24 03:45 03/07/24 03:45 03/07/24 03:45 03/07/24 03:49 03/07/24 03:49 FiO2 97 03/07/24 03:49 Oxygen Flow Rate (L/min) 1 Oxygen Delivery Method Nasal Cannula Weight: 141 lb 1.533 oz Body Mass Index (BMI) 25.0 Intake & Output: Intake and Output for Last 24 Hours 03/05/24 03/06/24 03/07/24 23:59 23:59 23:59 Intake Total 3666.37 / 3666.37 2518.66 / 2758.66 530 / 530 Output Total 600 / 600 600 / 600 Balance 3066.37 / 3066.37 1918.66 / 2158.66 530 / 530 Lab / Micro Data Attestation: I reviewed the patient's lab results. 03/07/24 06:15 03/07/24 06:15 Labs: Laboratory Results - last 24 hr 03/07/24 06:15: WBC 14.9 H, RBC 3.57 L, Hgb 9.4 L, Hct 31.9 L, MCV 89.4, MCH 26.3 L, MCHC 29.5 L, RDW Std Deviation 53.2 H, RDW Coeff of Deonte 16.1 H, Plt Count 342, MPV 10.6, Immature Gran % (Auto) 3.900 H, Neut % (Auto) 75.1 H, Lymph % (Auto) 13.7 L, Otoe % (Auto) 6.7, Eos % (Auto) 0.1, Baso % (Auto) 0.5, A bsolute Neuts (auto) 11.2 H, Absolute Lymphs (auto) 2.04, Nucleated RBC % 0.1, Sodium 141, Potassium 4.1, Chloride 108 H, Carbon Dioxide 30.0, Anion Gap 3 L, B UN 22 H, Creatinine 0.76, Estim Creat Clear Calc 59.76, Est GFR (MDRD) Af Amer 98, Est GFR (MDRD) Non-Af 81, BUN/Creatinine Ratio 29.1 H, Glucose 108 H, Calcium 8.6 Micro: Microbiology 03/04/24 10:00 Sputum, Induced/Lukens Gram Stain - Final 03/04/24 10:00 Sputum, Induced/Lukens Respiratory Culture - Final Pseudomonas aeruginosa 03/04/24 00:45 Blood Culture (Wb) - Right Forearm Blood Culture - Preliminary No growth in 48 hours. 03/05/24 14:00 Urine, Clean Catch Legionella Antigen - Final 03/05/24 14:00 Urine, Clean Catch Streptococcus pneumoniae Antigen (M - Final Rhythm Strip Rhythm Strip: Sinus Tach Rate: 105 Ectopy: PVC(s) Physical Exam Const alert and no apparent distress General Appearance: cooperative HEENT normocephalic and head/scalp atraumatic Eyes PERRL, EOMs intact bilaterally and conjunctivae normal Neck supple Neck Narrative: Stable tracheostomy site with Passy-[place] valve in place General: trachea midline Chest inspection of chest normal Resp normal respiratory effort Auscultation: diminished lung sounds Cardio regular rate and regular rhythm GI normal to inspection, nondistended, normoactive bowel sounds Extremity no clubbing, cyanosis or edema Skin no rashes or lesions noted Neuro CN's II-XII intact bilaterally, moves all extremities and no focal motor deficits Psych Mood & Affect: flat affect Charges/Coding Visit Charges Inpatient E&M: 51382 Subs Hosp L2
[2024-03-07] MEDS: Escitalopram Oxalate 20 MG Tablet PO (09:05)
[2024-03-07] MEDS: Lactobacillis Acidophilus 1 CAP PO ×4 (09:05→20:50)
[2024-03-07] MEDS: guaiFENesin/D-Methorphan TAB.SR.12H 2 TABLET PO ×2 (09:05→20:51)
[2024-03-07] MEDS: Enoxaparin 40 MG/0.4 ML Syringe SC (09:05)
[2024-03-07] MEDS: Ascorbic Acid 500 MG Tablet 1000 MG PO ×2 (09:05→16:01)
[2024-03-07] MEDS: Pantoprazole Sodium 40 MG Tablet PO (09:05)
[2024-03-07] MEDS: Cholecalciferol (Vit D3) 125 MCG CAPSULE (5,000 UNITS) PO (09:05)
[2024-03-07] MEDS: DULoxetine Hcl 30 MG Capsule PO (09:05)
[2024-03-07] MEDS: Aspirin E.C. 81 MG Tablet PO (09:05)
[2024-03-07 09:45] VITALS: BP 140/69; PULSE 98; RESP 18; TEMP 36.1; O2SAT 94
[2024-03-07] MEDS: 0.9% Saline Lock 10 ML Syringe IV (13:26)
--- NOTE | 2024-03-07 15:21 | PCM.PN.HOSP ---
Reason for Visit Reason for Visit: Diagnoses Sepsis, unspecified organism (03/04/24) Encephalopathy, unspecified (03/04/24) Metabolic encephalopathy (03/04/24) Old myocardial infarction (03/04/24) Takotsubo syndrome (03/04/24) Nontraumatic intracerebral hemorrhage, unspecified (03/04/24) Cerebral infarction, unspecified (03/04/24) Pneumonia due to other Gram-negative bacteria (03/04/24) Pneumonia, unspecified organism (03/04/24) Chronic obstructive pulmonary disease with (acute) exacerbation (03/04/24) Acute respiratory failure with hypoxia (03/04/24) Chronic respiratory failure with hypercapnia (03/04/24) Severe sepsis without septic shock (03/04/24) Other specified abnormal findings of blood chemistry (03/04/24) Nosocomial condition (03/04/24) Other specified health status (03/04/24) Objective Data Objective Data Vital Signs: Vital Signs Temp Pulse Resp BP Pulse Ox O2 Del Method O2 Flow Rate 97.0 F L 98 18 140/69 H 94 Nasal Cannula 2 03/07/24 09:45 03/07/24 09:45 03/07/24 09:45 03/07/24 09:45 03/07/24 09:45 03/07/24 09:45 03/07/24 09:45 FiO2 97 03/07/24 03:49 Oxygen Flow Rate (L/min) 2 Oxygen Delivery Method Nasal Cannula Weight: 141 lb 1.533 oz Body Mass Index (BMI) 25.0 Intake & Output: Intake and Output for Last 24 Hours 03/05/24 03/06/24 03/07/24 23:59 23:59 23:59 Intake Total 3666.37 / 3666.37 2518.66 / 2758.66 580 / 580 Output Total 600 / 600 600 / 600 Balance 3066.37 / 3066.37 1918.66 / 2158.66 580 / 580 Lab / Micro Data 03/07/24 06:15 03/07/24 06:15 Labs: Laboratory Results - last 24 hr 03/07/24 06:15: WBC 14.9 H, RBC 3.57 L, Hgb 9.4 L, Hct 31.9 L, MCV 89.4, MCH 26.3 L, MCHC 29.5 L, RDW Std Deviation 53.2 H, RDW Coeff of Deonte 16.1 H, Plt Count 342, MPV 10.6, Immature Gran % (Auto) 3.900 H, Neut % (Auto) 75.1 H, Lymph % (Auto) 13.7 L, Reagan % (Auto) 6.7, Eos % (Auto) 0.1, Baso % (Auto) 0.5, Absolute Neuts (auto) 11.2 H, Absolute Lymphs (auto) 2.04, Nucleated RBC % 0.1, Sodium 141, Potassium 4.1, Chloride 108 H, Carbon Dioxide 30.0, Anion Gap 3 L, BUN 22 H, Creatinine 0.76, Estim Creat Clear Calc 59.76, Est GFR (MDRD) Af Amer 98, Est GFR (MDRD) Non-Af 81, BUN/Creatinine Ratio 29.1 H, Glucose 108 H, Calcium 8.6 Micro: Microbiology 03/04/24 10:00 Sputum, Induced/Lukens Gram Stain - Final 03/04/24 10:00 Sputum, Induced/Lukens Respiratory Culture - Final Pseudomonas aeruginosa 03/04/24 00:45 Blood Culture (Wb) - Right Forearm Blood Culture - Preliminary No growth in 48 hours. 03/05/24 14:00 Urine, Clean Catch Legionella Antigen - Final 03/05/24 14:00 Urine, Clean Catch Streptococcus pneumoniae Antigen (M - Final Rhythm Strip Rhythm Strip: Sinus Tach Rate: 105 Ectopy: PVC(s) Physical Exam Narrative Seen and examined. She asked me the question that if I can remove her tracheostomy tube. I answered no. I think she has similar question to Dr. Flannery. Shortness of breath is better. Denies any chest pain. She denies cough, mucus expectoration or chest tightness. No fever Physical exam: General: Alert, Oriented x3, Cooperative HEENT: Atraumatic, PERRLA, EOMI, Normocephalic Oral: No Gingival or Mucosal Lesions/ Ulcerations Neck: Valve tracheostomy. Supple, No JVD, Negative Carotid Bruits Chest wall/Lungs: Air entry severely diminished in both lung smith. No appreciable airflow on auscultation. Bilateral coarse expiratory rhonchi Cardiovascular: Regular rate, Regular Rhythm, Normal S1, Normal S2, No M/G/R Abdomen: Bowel Sounds Present, Soft, Non Tender, Non-Distended : No dysuria. No renal angle tenderness. No suprapubic tenderness. Extremities: No edema, Capillary Refill Less than 3 Seconds Skin: No rashes, No breakdown. Musculoskeletal: No Tenderness to Palpation of Joints or Extremities. ROM restricted Neurological: Cranial nerves II-XII grossly intact, DTR 2+/4. No acute focal neurological deficit. Psych/Mental Status: Normal Affect, Appropriate. Assessment & Plan Assessment/Plan (1) Acute hypoxic on chronic hypercapnic respiratory failure: PLAN: Secondary to COPD exacerbation. Patient was insistent on going home on 03/03. As per documentation, lungs are clear and she deferred 5 L of oxygen on ambulation. She got worse at home. She had right upper lobe infiltrate 1. Chest x-ray not present on previous CT scan on previous admission. She had respiratory acidosis and hypercapnia Patient also noted return to her home Trelegy and she has tracheostomy. Patient was on ventilator. Patient was evaluated by vice president business development recommended PAP at night, scheduled bronchodilator and steroid. PT and OT. Patient stable for transfer to PCU 03/07: Continue IV steroid, bronchodilator. Pulmonary follow-up appreciated and recommended prednisone taper at time of discharge and follow-up in pulmonary clinic in 2 weeks. (2) Acute exacerbation of chronic obstructive pulmonary disease (COPD): PLAN: Likely exacerbated by pneumonia. (3) Sepsis: QUALIFIERS: Sepsis acute organ dysfunction status: with acute organ dysfunction Sepsis type: sepsis due to unspecified organism Severe sepsis acute organ dysfunction type: encephalopathy Severe sepsis shock status: without septic shock Qualified Code(s): A41.9 - Sepsis, unspecified organism; R65.20 - Severe sepsis without septic shock; G93.41 - Metabolic encephalopathy PLAN: Septic shock, present on admission. qSOFA of 2 with encephalopathy respiratory rate 29. Secondary to pneumonia Patient of Levophed for more than 24 hours. PICC line. Leukocytosis improving. Was 25.2% with immature granulocyte improved to 14.7%. Mainly neutrophil. (4) Gram-negative pneumonia: PLAN: Suspected given the patient's recent hospitalization. Sputum culture shows Pseudomonas aeruginosa 3+. Continue with pip-tazo. Discontinue vancomycin. Respiratory panel, COVID-19, influenza and RSV were previously negative. Urinary antigens are negative (5) Elevated troponin: PLAN: Likely type II strain from the respiratory failure. Overall trending down from 28th. No additional workup at this time. (6) Acute encephalopathy: PLAN: Resolved Metabolic secondary to CO2 narcosis. There is mention in the patient's had consumed a gummy. Patient adamantly denies using marijuana nor any Gummies. No additional workup at this time unless her condition changes. PLAN: Plan VTE prophylaxis with enoxaparin. Charges/Coding Visit Charges Inpatient E&M: 00146 Subs Hosp L2
[2024-03-07 16:00] VITALS: BP 140/66; PULSE 97; RESP 18; TEMP 36.1; O2SAT 94
[2024-03-07 16:09] LABS: Phenytoin (Dilantin) Level <0.8 ug/mL (10.0-20.0)
[2024-03-07 19:58] VITALS: PULSE 107; RESP 20; O2SAT 97
[2024-03-07] MEDS: Albuterol 2.5 MG/3 ML VIAL.NEB. INHALATION (19:58)
[2024-03-07] MEDS: Mirtazapine 15 MG Tablet 7.5 MG PO (20:50)
[2024-03-07] MEDS: ARIPiprazole 2 MG Tablet PO (20:50)
[2024-03-07] MEDS: Zolpidem Tartrate 5 MG Tablet PO (20:55)
[2024-03-07 21:57] VITALS: BP 128/68; PULSE 98; RESP 18; TEMP 36.2; O2SAT 96
[2024-03-08 03:57] VITALS: BP 132/76; PULSE 99; RESP 17; TEMP 36.1; O2SAT 97
[2024-03-08] MEDS: Phenytoin Na 100 MG Capsule PO (05:43)
[2024-03-08] MEDS: Nystatin 500,000 UNIT/5 ML PO.SYRINGE (WCH) 500000 UNIT PO (05:43)
[2024-03-08] MEDS: Piperacil/Tazobactam 3.375 GM in 0.9% Normal Saline (50mL MB+) 50 ML IV (05:43)
[2024-03-08 07:27] LABS: Hematocrit 33.7 % (37-47); Hemoglobin 10.1 g/dL (12.0-15.0); Mean Corpuscular Hgb 26.9 pg (27.0-32.0); Mean Corpuscular Volume 89.6 fL (81-99); Mean Platelet Vol. 10.8 fl (6.2-12.0); POSITIVE COUNT YES; POSITIVE MORPHOLOGY YES; RBC Distribution Width CV 16.2 % (11.6-14.6); RBC Distribution Width SD 53.1 fl (35.1-43.9); Red Blood Count 3.76 M/mm3 (4.2-5.4)
[2024-03-08] MEDS: Ipratropium/Albuterol Sulfate 3 ML AMPUL.NEB INHALATION (07:41)
[2024-03-08 07:42] VITALS: PULSE 84; RESP 20; O2SAT 97
[2024-03-08 08:00] LABS: Anion Gap 5 (5-15); BUN 20 mg/dL (7-18); BUN/Creat Ratio 25.4 RATIO (10-20); Chloride 106 mmol/L (98-107); Creatinine, Serum 0.79 mg/dL (0.55-1.02); EST Glomerular Filtration Rate 77 mL/min (>60); Est Glom Filt Rate - Afr Amer 93 mL/min (>60); Estimated Creatinine Clearance 59.76 ml/min; Glucose 106 mg/dL (74-106); Potassium 4.5 mmol/L (3.5-5.1); Sodium Level 141 mmol/L (136-145)
[2024-03-08 09:09] LABS: Differential Indicated MANUAL DIFF
[2024-03-08 09:10] VITALS: BP 117/58; PULSE 95; RESP 18; TEMP 36.7; O2SAT 95
[2024-03-08] MEDS: Enoxaparin 40 MG/0.4 ML Syringe SC (09:12)
[2024-03-08] MEDS: Escitalopram Oxalate 20 MG Tablet PO (09:12)
[2024-03-08] MEDS: Lactobacillis Acidophilus 1 CAP PO (09:12)
[2024-03-08 09:13] LABS: Lymphocyte 31 % (19-41); Monocyte 2 % (0-10); Myelocyte 2 % (0-0); Neutrophil-Band 4 % (0-5); Neutrophil-Segmented 61 % (47-70); Total Cells Counted 100 (MANUAL DIFF)
[2024-03-08] MEDS: Pantoprazole Sodium 40 MG Tablet PO (09:13)
[2024-03-08] MEDS: guaiFENesin/D-Methorphan TAB.SR.12H 2 TABLET PO (09:13)
[2024-03-08] MEDS: Aspirin E.C. 81 MG Tablet PO (09:13)
[2024-03-08] MEDS: DULoxetine Hcl 30 MG Capsule PO (09:13)
[2024-03-08] MEDS: Ascorbic Acid 500 MG Tablet 1000 MG PO (09:13)
[2024-03-08] MEDS: Cholecalciferol (Vit D3) 125 MCG CAPSULE (5,000 UNITS) PO (09:14)
[2024-03-08 09:15] LABS: Red Cell Morphology N CHROM NORMAL (NORM C&C)
[2024-03-08 09:18] LABS: Absolute Neutrophil Count 8.5 X10^3/uL (2.0-7.7)
[2024-03-08 09:44] LABS: Pathologist Review Reviewed
--- NOTE | 2024-03-08 10:27 | CASEMGMT ---
Discharge Planning Resumption of HH referral sent to [facility]. Asked if SW is available. Awaiting response. Carmen Butterfield DC Planning Asst.
[2024-03-08] MEDS: LORazepam 0.5 MG Tablet PO (11:20)
--- NOTE | 2024-03-08 11:35 | PCM.DC ---
Discharge Instructions Diet Discharge Diet: No restrictions Activity Discharge Activity: Return to Normal Activity Weight Bearing Status: Weight bearing as tolerated Dressing / Incision Call your doctor if you observe: Fever of 101 or Higher, Coldness, Increased Pain, Numbness or Tingling, Change in Color, Inability to urinate, Inability to have a bowel movement, Shortness of breath, Dizziness, Fainting spells, Swelling in the ankles, Chest pain, Prolonged hiccupping, Increased palpitations (irregular heartbeat) and Calf discomfort Follow Up Care When: IN 2 WEEKS Test Results: Test results from this visit will be discussed in further detail at your follow-up appointment, if applicable. Discharge Plan Admission Admit Date/Time: 03/04/24 02:38 Primary Reason for Your Visit: Acute on chronic combined respiratory failure due to COPD exacerbation Attending Provider: Tex Agee Primary Care Provider: Maryam Pineda Consulting Providers: Guero Ramirez; Nelson Kelsey; Pete Su Discharge Orders/Prescriptions Prescriptions: Jake Madden-S.therm 175 mg Capsule 1 cap PO BID Qty: 0 0RF levofloxacin 500 mg tablet 500 mg PO DAILY 4 Days Qty: 4 0RF prednisone 20 mg tablet 20 mg PO DAILY Qty: 26 0RF Rx Instructions: 40 mg daily for 5 days, 30 mg for 5 days, 20 mg for 5 days and 10 mg for 7 days Continued atorvastatin 40 mg tablet 40 mg PO QHS MDD 40 metoprolol succinate 25 mg tablet extended release 24 hr 25 mg PO DAILY MDD 25 aripiprazole [Abilify] 2 mg tablet 2 mg PO .daily QHS MDD 2mg albuterol sulfate 90 mcg/actuation HFA aerosol inhaler 2 inh inhalation Q4H Qty: 8.5 11RF albuterol sulfate 2.5 mg /3 mL (0.083 %) solution for nebulization 2.5 mg inhalation Q2H PRN PRN (Reason: Dyspnea, wheezing) Qty: 180 6RF Trelegy Ellipta 100-62.5-25 mcg blister with device 1 inh INHALATION DAILY 30 Days Qty: 60 6RF nystatin 100,000 unit/mL suspension 5 ml mucous membrane TID Qty: 250 1RF Rx Instructions: swish and swallow 5 cc three times per day for 10 days pantoprazole [Protonix] 40 mg Tablet,Delayed Release (Dr/Ec) 40 mg PO DAILY cholecalciferol (vitamin D3) [Vitamin D3] 25 mcg (1,000 unit) Tablet 25 mcg PO DAILY phenytoin 100 mg/4 mL Suspension 100 mg PO Q8 30 Days Qty: 360 2RF furosemide 20 mg tablet 20 mg PO BIDCM MDD 40 duloxetine 30 mg capsule,delayed release(DR/EC) 30 mg PO DAILY MDD 60 mirtazapine 7.5 mg tablet 7.5 mg PO QHS Qty: 30 0RF potassium chloride [Klor-Con M20] 20 mEq tablet,ER particles/crystals 20 meq PO BID aspirin [Adult Aspirin Regimen] 81 mg tablet,delayed release (DR/EC) 81 mg PO DAILY zolpidem 10 mg tablet 10 mg PO QHS PRN (Reason: insomnia) ipratropium-albuterol 0.5 mg-3 mg(2.5 mg base)/3 mL solution for nebulization 3 ml inhalation Q6H Rx Instructions: EVERY 6 HOURS WHILE AWAKE hydroxyzine pamoate 25 mg capsule 25 mg PO TID escitalopram oxalate 20 mg tablet 20 mg PO DAILY acetaminophen 325 mg Tablet 650 mg PO Q4H PRN PRN (Reason: Fever, pain -04/13) Qty: 0 0RF sennosides-docusate sodium [Stool Softener-Stimulant Laxat] 8.6-50 mg Tablet 2 tab PO BID PRN PRN (Reason: Constipation) Qty: 0 0RF Mucinex DM 30-600 mg Tablet Extended Release 12 Hr 2 tab PO BID 7 Days Qty: 28 0RF Held prednisone 10 mg tablet 10 mg PO DAILY Qty: 30 0RF Hold Instructions: Hold it until completes prednisone taper therapy Rx Instructions: 4 tabs daily for 3 days, then 3 tabs daily for 3 days, then 2 tabs daily for 3 days, then 1 tab daily for 3 days Discontinued amoxicillin-pot clavulanate 875-125 mg Tablet 1 tab PO BIDCM Qty: 7 0RF Referrals / Follow Up: Maryam Pineda MD [Primary Care Provider] - 03/16/24 2:20 pm Anurag Flannery DO [Med Staff - Active Staff] - Within 2 Weeks Disposition Disposition (needs filled in before D/C Order can be placed): Home, Self Care
[2024-03-08 11:46] VITALS: BP 117/58; PULSE 95; RESP 18; TEMP 36.7; O2SAT 95
[2024-03-08 12:01] VITALS: O2SAT 88; O2SAT 93; O2SAT 95
--- NOTE | 2024-03-08 12:14 | CASEMGMT ---
FINESSE LALA asked by garnett room worker to inquire if patient's NIV could be connected to her trach. FINESSE LALA called and asked Diane at [facility]. Per Diane, [facility] does not setup NIV's to trach. Diane states that there are limited [employer] companies that setup NIV to trach. IFNESSE LALA updated garnett room worker. Per garnett room worker patient is maintain oxygenation via NC and does not require oxygen via trach. Tree Expert states that patient will need to wear NIV with mask as directed and to schedule follow-up with pulmonology at discharge. FINESSE LALA updated by hospitalist that patient is discharging today. Oxygen testing completed, and patient is maintaining on 2lpm via NC. FINESSE LALA in to discuss needs at discharge. Patient wishes to return home with [facility]. FINESSE LALA educated patient on the importance of wearing NIV at home. Patient states she does wear NIV but removes it in her sleep. FINESSE LALA told patient that significant other will need to bring portable tank for at discharge. Lesley denied further needs and gave permission to call daughter Ameean with updates. FINESSE LALA called Ameena and updated regarding discharge, NIV, oxygen requirements, and pulmonology follow-up. Ameena voiced understanding and will assist patient with follow-up appts. FINESSE LALA udpated DC financial planning analyst to notify [facility] of discharge. Discharge plan updated.
--- NOTE | 2024-03-08 13:31 | PCM.DC.SUM ---
Providers Date of Admission: 03/04/24 Date of Discharge: 03/08/24 Primary Care Physician: Dr. Maryam Pineda MD Reason For Visit: SEPSIS, RUL PNA, AE COPD & METABOLIC ENCEPHALOPATH Diagnosis Discharge Diagnosis (1) Acute hypoxic on chronic hypercapnic respiratory failure: Status: Acute Code(s): J96.01 - Acute respiratory failure with hypoxia; J96.12 - Chronic respiratory failure with hypercapnia Plan: 68-year-old female was admitted in a confused state, delirious, hallucination, talking noncoherent. Patient has cough and sputum production and found to be an acute on chronic combined respiratory failure. Patient was further admitted in ICU 1. Acute on chronic combined respiratory failure secondary to COPD exacerbation from pneumonia due to Pseudomonas aeruginosa. Patient was insistent on going home on 03/03. As per documentation, lungs are clear and she deferred 5 L of oxygen on ambulation. She got worse at home. She had right upper lobe infiltrate 1. Chest x-ray not present on previous CT scan on previous admission. She had respiratory acidosis and hypercapnia Patient also noted return to her home Trelegy and she has tracheostomy. Patient was on ventilator. Patient was evaluated by economics lecturer recommended PAP at night, scheduled bronchodilator and steroid. PT and OT. Patient stable for transfer to PCU 03/07: Continue IV steroid, bronchodilator. Pulmonary follow-up appreciated and recommended prednisone taper at time of discharge and follow-up in pulmonary clinic in 2 weeks. 03/08: Discussed with the onsite case manager. Patient has tracheostomy tube with the speaking valve. NIV/ Trelegy does not connect with tracheostomy tube. As per [employer], Trelegy does not come with the adapter therefore only way to connect with the Trelegy will be through Ventimask. Patient will need teaching to connect with the Trelegy as she is not using it even though she has at home. Patient is discharged home on long taper of prednisone and Levaquin to complete a total of 8 days of antibiotic treatment. Discussed with the economics lecturer. Discharge medication reconciliation done. Discharge follow-up instructions completed. Discharge process discussed with the patient and all questions were answered to patient's satisfaction. Follow with PCP in 1 to 2 weeks Total time spent, exact 35 minutes on discharge meds reconciliation, examination, coordination of care with nurses and ancillary staff, review of imaging and blood test and discussion with the patient on follow-up instructions. (2) Acute exacerbation of chronic obstructive pulmonary disease (COPD): Status: Chronic Code(s): J44.1 - Chronic obstructive pulmonary disease with (acute) exacerbation Plan: Likely exacerbated by pneumonia. (3) Sepsis: Status: Acute Code(s): A41.9 - Sepsis, unspecified organism Qualifiers: Sepsis type: sepsis due to unspecified organism Sepsis acute organ dysfunction status: with acute organ dysfunction Severe sepsis acute organ dysfunction type: encephalopathy Severe sepsis shock status: without septic shock Qualified Code(s): A41.9 - Sepsis, unspecified organism; R65.20 - Severe sepsis without septic shock; G93.41 - Metabolic encephalopathy Plan: Septic shock, present on admission. qSOFA of 2 with encephalopathy respiratory rate 29. Secondary to pneumonia due to Pseudomonas aeruginosa Patient off Levophed for more than 24 hours. PICC line. Leukocytosis improving. Was 25.2% with immature granulocyte improved to 14.7%. Mainly neutrophil. 03/08: Septic shock is resolved. (4) Gram-negative pneumonia: Status: Acute Code(s): J15.69 - Pneumonia due to other Gram-negative bacteria Plan: Suspected given the patient's recent hospitalization. Sputum culture shows Pseudomonas aeruginosa 3+. Continue with pip-tazo. Discontinue vancomycin. Respiratory panel, COVID-19, influenza and RSV were previously negative. Urinary antigens are negative (5) Elevated troponin: Status: Acute Code(s): R79.89 - Other specified abnormal findings of blood chemistry Plan: Likely type II strain from the respiratory failure. Overall trending down from 28th. No additional workup at this time. (6) Acute encephalopathy: Status: Acute Code(s): G93.40 - Encephalopathy, unspecified Plan: Resolved Metabolic secondary to CO2 narcosis. There is mention in the patient's had consumed a gummy. Patient adamantly denies using marijuana nor any Gummies. No additional workup at this time unless her condition changes. Plan VTE prophylaxis with enoxaparin. Medications at Discharge Home Medications cholecalciferol (vitamin D3) 25 mcg (1,000 unit) tablet (Vitamin D3) 25 mcg PO DAILY supplement 11/03/20 pantoprazole 40 mg tablet,delayed release (Protonix) 40 mg PO DAILY GERD 11/03/20 aripiprazole 2 mg tablet (Abilify) 2 mg PO .daily QHS mental health / sleep 08/25/22 atorvastatin 40 mg tablet 40 mg PO QHS cholesterol 08/25/22 metoprolol succinate 25 mg tablet,extended release 24 hr 25 mg PO DAILY blood pressure 08/25/22 phenytoin 100 mg/4 mL oral suspension 100 mg (4 mL) PO Q8 seizures 30 days #360 mL 10/12/22 duloxetine 30 mg capsule,delayed release 30 mg PO DAILY mental health 11/11/22 furosemide 20 mg tablet 20 mg PO BIDCM diuretic 11/11/22 mirtazapine 7.5 mg tablet 7.5 mg PO QHS mental health #30 tabs 11/11/22 albuterol sulfate 2.5 mg/3 mL (0.083 %) solution for nebulization 2.5 mg (3 mL) inhalation Q2H PRN PRN Dyspnea, wheezing #180 mL 06/30/23 albuterol sulfate 90 mcg/actuation aerosol inhaler 2 inh inhalation Q4H breathing #8.5 grams 06/30/23 fluticasone fur. 100 mcg-umeclid 62.5 mcg-vilant 25 mcg inhalat.powder (Trelegy Ellipta) 1 inh inhalation DAILY breathing 30 days #60 ea 06/30/23 nystatin 100,000 unit/mL oral suspension 5 ml mucous membrane TID inflammation #250 mL 06/30/23 aspirin 81 mg tablet,delayed release (Adult Aspirin Regimen) 81 mg PO DAILY heart health 11/15/23 escitalopram oxalate 20 mg tablet 20 mg PO DAILY mental health 11/15/23 hydroxyzine pamoate 25 mg capsule 25 mg PO TID allergies 11/15/23 ipratropium 0.5 mg-albuterol 3 mg (2.5 mg base)/3 mL nebulization soln 3 ml inhalation Q6H breathting 11/15/23 zolpidem 10 mg tablet 10 mg PO QHS PRN insomnia 11/15/23 acetaminophen 325 mg tablet 650 mg (2 x 325 mg) PO Q4H PRN PRN Fever, pain 1-04/13 #0 tabs 11/18/23 dextromethorphan-guaifenesin 30 mg-600 mg tablet extended [id number] hr (Mucinex DM) 2 tab PO BID cough 7 days #28 tabs 11/18/23 sennosides 8.6 mg-docusate sodium 50 mg tablet (Stool Softener-Stimulant Laxative) 2 tab PO BID PRN PRN Constipation #0 tabs 11/18/23 potassium chloride 20 mEq tablet,extended release(part/cryst) (Klor-Con M) 20 meq PO BID supplement 01/28/24 prednisone 10 mg tablet 10 mg PO DAILY inflammation #30 tabs 03/03/24 L.acidophil,salivari-Bifido bifidum-Strep thermoph 175 mg capsule 1 cap PO BID #0 caps 03/08/24 levofloxacin 500 mg tablet 500 mg PO DAILY 4 days #4 tabs 03/08/24 prednisone 20 mg tablet 20 mg PO DAILY #26 tabs 03/08/24 Physical Exam Narrative Seen and examined. Discussed with the telehealth case manager regarding Trelegy. Patient has trilogy NIV but not using it and states she does not know how to use it. shortness of breath is better. Denies any chest pain. She denies cough, mucus expectoration or chest tightness. No fever. She wants to go home. Physical exam: General: Alert, Oriented x3, Cooperative HEENT: Atraumatic, PERRLA, EOMI, Normocephalic Oral: No Gingival or Mucosal Lesions/ Ulcerations Neck: Valve tracheostomy. Supple, No JVD, Negative Carotid Bruits Chest wall/Lungs: Air entry has improved and audible in both lung smith. Bilateral coarse expiratory rhonchi Cardiovascular: Regular rate, Regular Rhythm, Normal S1, Normal S2, No M/G/R Abdomen: Bowel Sounds Present, Soft, Non Tender, Non-Distended : No dysuria. No renal angle tenderness. No suprapubic tenderness. Extremities: No edema, Capillary Refill Less than 3 Seconds Skin: No rashes, No breakdown. Musculoskeletal: No Tenderness to Palpation of Joints or Extremities. ROM restricted Neurological: Cranial nerves II-XII grossly intact, DTR 2+/4. No acute focal neurological deficit. Psych/Mental Status: Normal Affect, Appropriate. Weight / BMI Weight Weight: 141 lb 1.533 oz Body Mass Index (BMI) 25.0 ABG / Lab / Microbiology Data 03/08/24 06:29 03/08/24 06:29 Laboratory: Laboratory Results - last 24 hr 03/04/24 00:04: Diff Path Review Reviewed 03/04/24 04:05: Phenytoin <0.8 L 03/08/24 06:29: WBC 13.0 H, RBC 3.76 L, Hgb 10.1 L, Hct 33.7 L, MCV 89.6, MCH 26.9 L, MCHC 30.0 L, RDW Std Deviation 53.1 H, RDW Coeff of Deonte 16.2 H, Plt Count TNP, MPV 10.8, Neut % (Auto) Not Reportable, Absolute Neuts (auto) 8.5 H, Absolute Lymphs (auto) 4.00, Total Counted 100, Neutrophils % (Manual) 61, Band Neutrophils % 4, Lymphocytes % (Manual) 31, Monocytes % (Manual) 2, Myelocytes % 2 H, RBC Morphology N CHROM, Sodium 141, Potassium 4.5, Chloride 106, Carbon Dioxide 30.0, Anion Gap 5, BUN 20 H, Creatinine 0.79, Estim Creat Clear Calc 59.76, Est GFR (MDRD) Af Amer 93, Est GFR (MDRD) Non-Af 77, BUN/Creatinine Ratio 25.4 H, Glucose 106, Calcium 9.0 Microbiology: Microbiology 03/04/24 10:00 Sputum, Induced/Lukens Gram Stain - Final 03/04/24 10:00 Sputum, Induced/Lukens Respiratory Culture - Final Pseudomonas aeruginosa 03/04/24 00:45 Blood Culture (Wb) - Right Forearm Blood Culture - Preliminary No growth in 48 hours. 03/05/24 14:00 Urine, Clean Catch Legionella Antigen - Final 03/05/24 14:00 Urine, Clean Catch Streptococcus pneumoniae Antigen (M - Final D/C Instructions Discharge Diet: No restrictions Weight Bearing Status: Weight bearing as tolerated Call your doctor if you observe: Fever of 101 or Higher, Coldness, Increased Pain, Numbness or Tingling, Change in Color, Inability to urinate, Inability to have a bowel movement, Shortness of breath, Dizziness, Fainting spells, Swelling in the ankles, Chest pain, Prolonged hiccupping, Increased palpitations (irregular heartbeat) and Calf discomfort When: IN 2 WEEKS Meaningful Use Info Meaningful Use Meaningful Use Diagnoses (Choose all that apply): None applicable Ischemic Stroke Statin Dosing Therapy Reference: STATIN DOSE THERAPY REFERENCE: * Patients > 75 years receive moderate or high dose statin therapy. * Patients 75 years or YOUNGER should receive HIGH intensity statin dose unless contraindicated. You will be required to document reason for non-treatment if statin daily dose does not meet guidelines. HIGH DOSE STATIN THERAPY DAILY Atorvastatin > than or = to 40 mg Rosuvastatin > than or = to 20 mg Amlodipine + Atorvastatin > than or = to 2.5/40 mg Ezetimibe + Simvastatin 10/80 mg Simvastatin 80mg Discharge Plan Admission Admit Date/Time: 03/04/24 02:38 Primary Reason for Your Visit: Acute on chronic combined respiratory failure due to COPD exacerbation Attending Provider: Tex Agee Primary Care Provider: Maryam Pineda Consulting Providers: Guero Ramirez; Nelson Kelsey; Pete Su Discharge Orders/Prescriptions Prescriptions: Huang Maddentherm 175 mg Capsule 1 cap PO BID Qty: 0 0RF levofloxacin 500 mg tablet 500 mg PO DAILY 4 Days Qty: 4 0RF prednisone 20 mg tablet 20 mg PO DAILY Qty: 26 0RF Rx Instructions: 40 mg daily for 5 days, 30 mg for 5 days, 20 mg for 5 days and 10 mg for 7 days Continued atorvastatin 40 mg tablet 40 mg PO QHS MDD 40 metoprolol succinate 25 mg tablet extended release 24 hr 25 mg PO DAILY MDD 25 aripiprazole [Abilify] 2 mg tablet 2 mg PO .daily QHS MDD 2mg albuterol sulfate 90 mcg/actuation HFA aerosol inhaler 2 inh inhalation Q4H Qty: 8.5 11RF albuterol sulfate 2.5 mg /3 mL (0.083 %) solution for nebulization 2.5 mg inhalation Q2H PRN PRN (Reason: Dyspnea, wheezing) Qty: 180 6RF Trelegy Ellipta 100-62.5-25 mcg blister with device 1 inh INHALATION DAILY 30 Days Qty: 60 6RF nystatin 100,000 unit/mL suspension 5 ml mucous membrane TID Qty: 250 1RF Rx Instructions: swish and swallow 5 cc three times per day for 10 days pantoprazole [Protonix] 40 mg Tablet,Delayed Release (Dr/Ec) 40 mg PO DAILY cholecalciferol (vitamin D3) [Vitamin D3] 25 mcg (1,000 unit) Tablet 25 mcg PO DAILY phenytoin 100 mg/4 mL Suspension 100 mg PO Q8 30 Days Qty: 360 2RF furosemide 20 mg tablet 20 mg PO BIDCM MDD 40 duloxetine 30 mg capsule,delayed release(DR/EC) 30 mg PO DAILY MDD 60 mirtazapine 7.5 mg tablet 7.5 mg PO QHS Qty: 30 0RF potassium chloride [Klor-Con M20] 20 mEq tablet,ER particles/crystals 20 meq PO BID aspirin [Adult Aspirin Regimen] 81 mg tablet,delayed release (DR/EC) 81 mg PO DAILY zolpidem 10 mg tablet 10 mg PO QHS PRN (Reason: insomnia) ipratropium-albuterol 0.5 mg-3 mg(2.5 mg base)/3 mL solution for nebulization 3 ml inhalation Q6H Rx Instructions: EVERY 6 HOURS WHILE AWAKE hydroxyzine pamoate 25 mg capsule 25 mg PO TID escitalopram oxalate 20 mg tablet 20 mg PO DAILY acetaminophen 325 mg Tablet 650 mg PO Q4H PRN PRN (Reason: Fever, pain -04/13) Qty: 0 0RF sennosides-docusate sodium [Stool Softener-Stimulant Laxat] 8.6-50 mg Tablet 2 tab PO BID PRN PRN (Reason: Constipation) Qty: 0 0RF Mucinex DM 30-600 mg Tablet Extended Release 12 Hr 2 tab PO BID 7 Days Qty: 28 0RF Held prednisone 10 mg tablet 10 mg PO DAILY Qty: 30 0RF Hold Instructions: Hold it until completes prednisone taper therapy Rx Instructions: 4 tabs daily for 3 days, then 3 tabs daily for 3 days, then 2 tabs daily for 3 days, then 1 tab daily for 3 days Discontinued amoxicillin-pot clavulanate 875-125 mg Tablet 1 tab PO BIDCM Qty: 7 0RF Referrals / Follow Up: Maryam Pineda MD [Primary Care Provider] - 03/16/24 2:20 pm Anurag Flannery DO [Med Staff - Active Staff] - Within 2 Weeks Disposition Disposition (needs filled in before D/C Order can be placed): Home, Self Care Charges/Coding Visit Charges Inpatient E&M: 67999 Disch Hosp >30min
--- NOTE | 2024-03-08 14:26 | PHA.DC.MC.R ---
Pharmacy [facility] Service has performed discharge medication reconciliation and counseling for this patient. 1. LACTOBACILLUS 1T PO BID 2. LEVOFLOXACIN 500MG PO DAILY X 4 DAYS 3. PREDNISONE 40MG PO DAILY X 5 DAYS, THEN 30MG X 5 DAYS, THEN 20MG X 5 DAYS, THEN 10MG X 7 DAYS The patient's discharge medication list was reviewed for discrepancies and discrepancies were resolved. The patient was counseled on the following discharge medications and changes in medications for homegoing were reviewed. The Reason for Use, instructions for use, and potential side effects were reviewed for all new medications. The patient's questions regarding all of their medications were answered. The patient was able to verbally demonstrate an understanding of their discharge medications. Medications at Discharge Home Medications cholecalciferol (vitamin D3) 25 mcg (1,000 unit) tablet (Vitamin D3) 25 mcg PO DAILY supplement 11/03/20 pantoprazole 40 mg tablet,delayed release (Protonix) 40 mg PO DAILY GERD 11/03/20 aripiprazole 2 mg tablet (Abilify) 2 mg PO .daily QHS mental health / sleep 08/25/22 atorvastatin 40 mg tablet 40 mg PO QHS cholesterol 08/25/22 metoprolol succinate 25 mg tablet,extended release 24 hr 25 mg PO DAILY blood pressure 08/25/22 phenytoin 100 mg/4 mL oral suspension 100 mg (4 mL) PO Q8 seizures 30 days #360 mL 10/12/22 duloxetine 30 mg capsule,delayed release 30 mg PO DAILY mental health 11/11/22 furosemide 20 mg tablet 20 mg PO BIDCM diuretic 11/11/22 mirtazapine 7.5 mg tablet 7.5 mg PO QHS mental health #30 tabs 11/11/22 albuterol sulfate 2.5 mg/3 mL (0.083 %) solution for nebulization 2.5 mg (3 mL) inhalation Q2H PRN PRN Dyspnea, wheezing #180 mL 06/30/23 albuterol sulfate 90 mcg/actuation aerosol inhaler 2 inh inhalation Q4H breathing #8.5 grams 06/30/23 fluticasone fur. 100 mcg-umeclid 62.5 mcg-vilant 25 mcg inhalat.powder (Trelegy Ellipta) 1 inh inhalation DAILY breathing 30 days #60 ea 06/30/23 nystatin 100,000 unit/mL oral suspension 5 ml mucous membrane TID inflammation #250 mL 06/30/23 aspirin 81 mg tablet,delayed release (Adult Aspirin Regimen) 81 mg PO DAILY heart health 11/15/23 escitalopram oxalate 20 mg tablet 20 mg PO DAILY mental health 11/15/23 hydroxyzine pamoate 25 mg capsule 25 mg PO TID allergies 11/15/23 ipratropium 0.5 mg-albuterol 3 mg (2.5 mg base)/3 mL nebulization soln 3 ml inhalation Q6H breathting 11/15/23 zolpidem 10 mg tablet 10 mg PO QHS PRN insomnia 11/15/23 acetaminophen 325 mg tablet 650 mg (2 x 325 mg) PO Q4H PRN PRN Fever, pain -04/13 #0 tabs 11/18/23 dextromethorphan-guaifenesin 30 mg-600 mg tablet extended [id number] hr (Mucinex DM) 2 tab PO BID cough 7 days #28 tabs 11/18/23 sennosides 8.6 mg-docusate sodium 50 mg tablet (Stool Softener-Stimulant Laxative) 2 tab PO BID PRN PRN Constipation #0 tabs 11/18/23 potassium chloride 20 mEq tablet,extended release(part/cryst) (Klor-Con M) 20 meq PO BID supplement 01/28/24 prednisone 10 mg tablet 10 mg PO DAILY inflammation #30 tabs 03/03/24 L.acidophil,salivari-Bifido bifidum-Strep thermoph 175 mg capsule 1 cap PO BID #0 caps 03/08/24 levofloxacin 500 mg tablet 500 mg PO DAILY 4 days #4 tabs 03/08/24 prednisone 20 mg tablet 20 mg PO DAILY #26 tabs 03/08/24
--- NOTE | 2024-03-08 14:49 | CASEMGMT ---
Discharge Planning Discharge instructions sent to [facility] via [facility]. Carmen Butterfield DC Planning Asst.
[2024-03-09 08:28] LABS: Pathologist Review Reviewed
== END 2024-03-08 14:42 | disposition home health service (06) | DRG 871 ==
LOC: ED 03-04 00:48 → ICU 03-04 03:15 → PCU 03-07 09:55 → ICU 03-07 15:34
PROVIDERS: Internal Medicine; Admitting Provider Internal Medicine; Emergency Provider Emergency Medicine; PCP Internal Medicine; Visit Provider Internal Medicine
DX: A41.52 Sepsis due to Pseudomonas (principal); R65.21 Severe sepsis with septic shock; J96.21 Acute and chronic respiratory failure with hypoxia; G93.41 Metabolic encephalopathy; J15.69 Pneumonia due to other Gram-negative bacteria; J96.22 Acute and chronic respiratory failure with hypercapnia; J44.0 Chronic obstructive pulmonary disease with (acute) lower respiratory infection; I51.81 Takotsubo syndrome; I24.89 Other forms of acute ischemic heart disease; J44.1 Chronic obstructive pulmonary disease with (acute) exacerbation; E87.29 Other acidosis; G40.909 Epilepsy, unspecified, not intractable, without status epilepticus; E03.9 Hypothyroidism, unspecified; Z93.0 Tracheostomy status; K21.9 Gastro-esophageal reflux disease without esophagitis; F41.8 Other specified anxiety disorders; I25.10 Atherosclerotic heart disease of native coronary artery without angina pectoris; E78.5 Hyperlipidemia, unspecified; G47.33 Obstructive sleep apnea (adult) (pediatric); I25.2 Old myocardial infarction; Z79.51 Long term (current) use of inhaled steroids; Y95 Nosocomial condition; Z79.891 Long term (current) use of opiate analgesic; I49.3 Ventricular premature depolarization; Z79.82 Long term (current) use of aspirin; Z86.718 Personal history of other venous thrombosis and embolism; Z87.891 Personal history of nicotine dependence; Z86.73 Personal history of transient ischemic attack (TIA), and cerebral infarction without residual deficits
CPT/HCPCS: 31720; 36415; 36569; 36600; 70450; 71045; 71275; 80048; 80053; 80202; 80307; 82077; 82803; 83605; 83735; 83880; 84100; 84443; 84484; 85025; 85610; 85730; 87040; 87070; 87077; 87184; 87186; 87205; 87449; 87631; 87633; 92526; 92610; 93005; 93306; 94002; 94003; 94640; 94667; 94762; 96372; 96374; 96376; 97162; 97166; 99221; 99284; 99285; J7030; J7050; Q9957; Q9967; A4216; G0378

== ENCOUNTER 2024-03-12 23:00 | Emergency (ER) | payer MEDICARE, SELFPAY ==
[2024-03-12 23:02] VITALS: BP 129/53; PULSE 99; RESP 20; TEMP 35.8; O2SAT 99; BMI 23.3
[2024-03-12 23:04] VITALS: BP 129/53; PULSE 99; RESP 20; TEMP 35.8; O2SAT 99
--- NOTE | 2024-03-12 23:50 | RAD_ITS ---
INDICATION: shortness of breath EXAMINATION/TECHNIQUE: X-RAY - portable AP upright chest x-ray COMPARISON: 03/04/2024 FINDINGS: LINES/DEVICES: Stable tracheostomy tube. LUNGS: Partial resolution of peripheral right upper lung field consolidation. No new areas of consolidation. No pleural effusion. MEDIASTINUM AND CARDIOVASCULAR STRUCTURES: Cardiac silhouette stable within normal limits. BONES AND SOFT TISSUES: No acute changes. RAD/Chest 1 View (Portable) IMPRESSION: Partial resolution of a right upper lobe consolidation. Recommend follow-up to complete resolution. Electronically Signed: Alonzo Hunter MD at 0:49 EDT ,
--- NOTE | 2024-03-12 23:50 | EKG12_ITS ---
Test Reason : DYSRHYTHMIA Blood Pressure : / mmHG Vent. Rate : 091 BPM Atrial Rate : 091 BPM P-R Int : 110 ms QRS Dur : 080 ms QT Int : 360 ms P-R-T Axes : 074 042 055 degrees QTc Int : 442 ms Sinus rhythm with short OK Possible Inferior infarct , age undetermined Abnormal ECG Confirmed by MOISES MENDES, LINDSEY ([id number]), continuity editor NICOLE ARANGO ([id number]) on 03/13/2024 2:46:46 PM Referred By: Confirmed By:LINDSEY DE LEON MD
--- NOTE | 2024-03-12 23:52 | EX.ED.DYSGE1 ---
HPI History of Present Illness Chief Complaint: General Illness Narrative Narrative: 68-year-old female past medical history of COPD, has had tracheostomy for 3 to 4 months secondary to respiratory distress, presents with her because of confusion that was intermittent. She was pulling things out of the air and was confused. She states she has episodes of these altered mental status is and difficulty breathing. She denies any recent fevers or chills, no cough that is new for her, no increased difficulty breathing. No leg swelling. No dysuria or hematuria. [facility] Medical History Hypothyroidism Former smoker BiPAP (biphasic positive airway pressure) dependence On home oxygen therapy Asthma Seizures Stroke/cerebrovascular accident Noncompliance Diastolic CHF History of alcohol abuse Aspiration pneumonia due to gastric secretions Carcinoma in situ of breast Benign neoplasm of colon Takotsubo cardiomyopathy (06/17/21) Ischemic cerebrovascular accident (CVA) (02/06/17) Non-rheumatic mitral regurgitation Anxiety and depression Non-ischemic cardiomyopathy Essential (primary) hypertension Secondary pulmonary arterial hypertension Chronic anemia GERD (gastroesophageal reflux disease) TIO (obstructive sleep apnea) History of non-ST elevation myocardial infarction (NSTEMI) (02/03/17) History of DVT of lower extremity (02/11/17) Insomnia Hyperlipidemia Daytime hypersomnia Hemorrhagic cerebrovascular accident (CVA) (02/09/17) COPD (chronic obstructive pulmonary disease) Home Medications ?Medication ?Instructions ?Recorded ?Last Taken ?Type cholecalciferol (vitamin D3) 25 25 mcg PO DAILY supplement 11/03/20 Unknown History mcg (1,000 unit) tablet (Vitamin D3) pantoprazole 40 mg tablet,delayed 40 mg PO DAILY GERD 11/03/20 11/15/23 History release (Protonix) aripiprazole 2 mg tablet (Abilify) 2 mg PO .daily QHS mental health / 08/25/22 11/15/23 History sleep atorvastatin 40 mg tablet 40 mg PO QHS cholesterol 08/25/22 11/15/23 History metoprolol succinate 25 mg 25 mg PO DAILY blood pressure 08/25/22 11/15/23 History tablet,extended release 24 hr phenytoin 100 mg/4 mL oral 100 mg (4 mL) PO Q8 seizures 30 10/12/22 Unknown Rx suspension days #360 mL duloxetine 30 mg capsule,delayed 30 mg PO DAILY mental health 11/11/22 11/15/23 History release furosemide 20 mg tablet 20 mg PO BIDCM diuretic 11/11/22 11/15/23 History mirtazapine 7.5 mg tablet 7.5 mg PO QHS mental health #30 11/11/22 11/14/23 Rx tabs albuterol sulfate 2.5 mg/3 mL 2.5 mg (3 mL) inhalation Q2H PRN 06/30/23 11/15/23 Rx (0.083 %) solution for nebulization PRN Dyspnea, wheezing #180 mL albuterol sulfate 90 mcg/actuation 2 inh inhalation Q4H breathing 06/30/23 11/15/23 Rx aerosol inhaler #8.5 grams fluticasone fur. 100 mcg-umeclid 1 inh inhalation DAILY breathing 06/30/23 11/15/23 Rx 62.5 mcg-vilant 25 mcg 30 days #60 ea inhalat.powder (Trelegy Ellipta) nystatin 100,000 unit/mL oral 5 ml mucous membrane TID 06/30/23 11/15/23 Rx suspension inflammation #250 mL aspirin 81 mg tablet,delayed 81 mg PO DAILY heart health 11/15/23 11/15/23 History release (Adult Aspirin Regimen) escitalopram oxalate 20 mg tablet 20 mg PO DAILY mental health 11/15/23 11/15/23 History hydroxyzine pamoate 25 mg capsule 25 mg PO TID allergies 11/15/23 11/15/23 History ipratropium 0.5 mg-albuterol 3 mg 3 ml inhalation Q6H breathting 11/15/23 11/15/23 History (2.5 mg base)/3 mL nebulization soln zolpidem 10 mg tablet 10 mg PO QHS PRN insomnia 11/15/23 11/14/23 History acetaminophen 325 mg tablet 650 mg (2 x 325 mg) PO Q4H PRN PRN 11/18/23 Unknown Rx Fever, pain 1-04/13 #0 tabs dextromethorphan-guaifenesin 30 2 tab PO BID cough 7 days #28 tabs 11/18/23 Unknown Rx mg-600 mg tablet extended hr (Mucinex DM) sennosides 8.6 mg-docusate sodium 2 tab PO BID PRN PRN Constipation 11/18/23 Unknown Rx 50 mg tablet (Stool #0 tabs Softener-Stimulant Laxative) potassium chloride 20 mEq 20 meq PO BID supplement 01/28/24 Unknown History tablet,extended release(part/cryst) (Klor-Con M) prednisone 10 mg tablet 10 mg PO DAILY inflammation #30 03/03/24 Unknown Rx tabs L.acidophil,salivari-Bifido 1 cap PO BID #0 caps 03/08/24 Unknown Rx bifidum-Strep thermoph 175 mg capsule levofloxacin 500 mg tablet 500 mg PO DAILY 4 days #4 tabs 03/08/24 Unknown Rx prednisone 20 mg tablet 20 mg PO DAILY #26 tabs 03/08/24 Unknown Rx Allergy/AdvReac Type Severity Reaction Status Date / Time tetanus and diphtheria Allergy Hives Verified 03/12/24 23:02 toxoids (tetanus & diphtheria toxoids) Family History Sister Cancer lung Father Cancer lung Mother Cancer lung Surgical History S/P emergency tracheotomy for assistance in breathing History of tracheostomy S/P percutaneous endoscopic gastrostomy (PEG) tube placement History of left heart catheterization (06/17/21) History of bilateral cataract extraction Hx of appendectomy H/O: section History of lumpectomy History of cholecystectomy Social History household members: spouse Smoking Status: Former smoker how long ago did patient quit smokin, 1pk/day second hand exposure: Yes alcohol intake: former substance use type: does not use what type of physical activity do you participate in: walking frequency: daily ROS ROS ED ROS Narrative Constitutional: No fever, no chills. HEENT: No sore throat. No neck pain. No loss of vision. No rhinorrhea. Cardiovascular: No chest pain. No palpitations. No pedal edema. Respiratory: No cough, chronic shortness of breath. Abdominal: No abdominal pain. No nausea. No vomiting. Genitourinary: No dysuria. No hematuria. Musculoskeletal: No myalgias. No arthralgias. Neurologic: No headaches. No dizziness. No lightheadedness. Reported confusion from . Skin: No rash. No change in color. Psychiatric: No depression. No anxiety. EXAM Physical Exam Narrative Exam Narrative: Afebrile. Vital signs noted. Regular rate and rhythm. Mild tachypnea. Decreased breath sounds bilateral bases. Positive tracheostomy with no erythema or purulent drainage. Speaking valve in place. Abdomen soft nontender with normoactive bowel sounds. Neurological examination shows her to be awake, alert, and oriented x 3. No pedal edema. Const Vital Signs: 03/12/24 23:02 03/12/24 23:04 03/12/24 23:04 Temperature 96.5 F L 96.5 F L Temperature Source Temporal Temporal Pulse Rate 99 99 Respiratory Rate 20 H 20 H Respiratory Effort Normal Respiratory Pattern Normal Blood Pressure 129/53 H 129/53 H Blood Pressure Mean 78 78 Pulse Ox 99 99 Oxygen Delivery Method Nasal Cannula Nasal Cannula Oxygen Flow Rate (L/min) 5 5 03/13/24 00:04 03/13/24 00:09 Temperature 98.6 F Temperature Source Oral Pulse Rate 91 Respiratory Rate 18 Respiratory Effort Respiratory Pattern Blood Pressure 119/65 Blood Pressure Mean 83 Pulse Ox 98 97 Oxygen Delivery Method Room Air Nasal Cannula Oxygen Flow Rate (L/min) 2 2 MDM MDM MDM Narrative Medical decision making narrative: Concern and in the differential diagnosis but not limited to CO2 retention versus urinary tract infection versus pneumonia versus dehydration. She does have history of chronic CO2 retention. ABG was obtained and she has a pH of 7.38 with a pCO2 of 86, pO2 of 86.9. In review of her prior laboratories, she has a chronically elevated CO2. EKG was obtained and interpreted by myself independently as normal sinus rhythm at 91 bpm without ectopy or acute ST changes. No STEMI. Her CBC is still pending. She has slightly elevated potassium of 5.3 with a BUN of 15 and creatinine 0.65, glucose elevated at 153 with a low anion gap of 1. Chest x-ray interpreted by myself shows no evidence of pneumothorax or pneumonia that I see. Radiology read is still pending. Patient told the RN that she wanted to sign out AGAINST MEDICAL ADVICE and that she does not want to be here. She does not want to be poked as they were unable to obtain IV access but they did obtain blood work. She is awake, alert, oriented x 3 and not somnolent. I do feel that she has the capacity to sign out AGAINST MEDICAL ADVICE and additionally her is willing to take her home. She was told that she runs the risk of permanent disability and with respiratory failure and hypercapnia with increased somnolence. She acknowledges an understanding. She was told that she could return to the emergency department at any time. Disposition is signed out AGAINST MEDICAL ADVICE. Patient is in stable condition. History & Record Review Discussion w/independent historian: Patient and Family (Spouse) Lab Data Attestation: I reviewed the patient's lab results. Labs: Laboratory Results - last 24 hr 03/13/24 00:04 Sodium 140 Potassium 5.3 H Chloride 95 L Carbon Dioxide 44.0 H Anion Gap 1 L BUN 15 Creatinine 0.65 Estim Creat Clear Calc 54.90 Est GFR (MDRD) Af Amer 117 Est GFR (MDRD) Non-Af 97 BUN/Creatinine Ratio 23.2 H Glucose 153 H Calcium 9.3 ABG Data ABG results: ABG 03/12/24 23:50 Specimen Type ART Sample Site L Radial pH 7.39 Bicarbonate Actual 51.8 H Total CO2 > 50 Base Excess 27 H O2 Saturation 96 O2 % 3.0 ABG pCO2 86.2 H* ABG pO2 87 Royal Test Positive O2 Delivery Device Cannula Vent Mode Not entered Crit Call To/Read Back Yes Blood Gas Notified Whom Carlos Blood Gas Notified Time 23:51:37 Discharge Plan Triage Chief Complaint: General Illness ED Provider: Dionicio Gonzalez Dx/Rx/DC Orders Clinical Impression: Chronic respiratory failure, CO2 retention, Left against medical advice Instructions: Chest and Lung Problems Prescriptions: No Action atorvastatin 40 mg tablet 40 mg PO QHS MDD 40 metoprolol succinate 25 mg tablet extended release 24 hr 25 mg PO DAILY MDD 25 aripiprazole [Abilify] 2 mg tablet 2 mg PO .daily QHS MDD 2mg albuterol sulfate 90 mcg/actuation HFA aerosol inhaler 2 inh inhalation Q4H Qty: 8.5 11RF albuterol sulfate 2.5 mg /3 mL (0.083 %) solution for nebulization 2.5 mg inhalation Q2H PRN PRN (Reason: Dyspnea, wheezing) Qty: 180 6RF Trelegy Ellipta 100-62.5-25 mcg blister with device 1 inh INHALATION DAILY 30 Days Qty: 60 6RF nystatin 100,000 unit/mL suspension 5 ml mucous membrane TID Qty: 250 1RF Rx Instructions: swish and swallow 5 cc three times per day for 10 days pantoprazole [Protonix] 40 mg Tablet,Delayed Release (Dr/Ec) 40 mg PO DAILY cholecalciferol (vitamin D3) [Vitamin D3] 25 mcg (1,000 unit) Tablet 25 mcg PO DAILY phenytoin 100 mg/4 mL Suspension 100 mg PO Q8 30 Days Qty: 360 2RF furosemide 20 mg tablet 20 mg PO BIDCM MDD 40 duloxetine 30 mg capsule,delayed release(DR/EC) 30 mg PO DAILY MDD 60 mirtazapine 7.5 mg tablet 7.5 mg PO QHS Qty: 30 0RF potassium chloride [Klor-Con M20] 20 mEq tablet,ER particles/crystals 20 meq PO BID aspirin [Adult Aspirin Regimen] 81 mg tablet,delayed release (DR/EC) 81 mg PO DAILY zolpidem 10 mg tablet 10 mg PO QHS PRN (Reason: insomnia) ipratropium-albuterol 0.5 mg-3 mg(2.5 mg base)/3 mL solution for nebulization 3 ml inhalation Q6H Rx Instructions: EVERY 6 HOURS WHILE AWAKE hydroxyzine pamoate 25 mg capsule 25 mg PO TID escitalopram oxalate 20 mg tablet 20 mg PO DAILY acetaminophen 325 mg Tablet 650 mg PO Q4H PRN PRN (Reason: Fever, pain -04/13) Qty: 0 0RF sennosides-docusate sodium [Stool Softener-Stimulant Laxat] 8.6-50 mg Tablet 2 tab PO BID PRN PRN (Reason: Constipation) Qty: 0 0RF Mucinex DM 30-600 mg Tablet Extended Release 12 Hr 2 tab PO BID 7 Days Qty: 28 0RF prednisone 10 mg tablet 10 mg PO DAILY Qty: 30 0RF Rx Instructions: 4 tabs daily for 3 days, then 3 tabs daily for 3 days, then 2 tabs daily for 3 days, then 1 tab daily for 3 days L.acidoph,saliva-B.bif-S.therm 175 mg Capsule 1 cap PO BID Qty: 0 0RF levofloxacin 500 mg tablet 500 mg PO DAILY 4 Days Qty: 4 0RF prednisone 20 mg tablet 20 mg PO DAILY Qty: 26 0RF Rx Instructions: 40 mg daily for 5 days, 30 mg for 5 days, 20 mg for 5 days and 10 mg for 7 days Primary Care Provider: Maryam Pineda Referrals: Maryam Pineda MD [Primary Care Provider] - As soon as possible Activity Restrictions/Additional Instructions: Return with increased confusion, increased somnolence/sleepiness, new or worsening symptoms. You have signed out AGAINST MEDICAL ADVICE. Know that you can return to the emergency department at any time. You do risk the chance of of permanent disability and . Print Language: [place] Citizen Disposition Disposition: Against Medical Advice
[2024-03-12 23:54] LABS: Allen Test Positive; Base Excess 27 mmol/L (-2 to +2); Bicarbonate 51.8 mmol/L (22-26); Blood Gas Specimen Type ART; Mode Not entered; O2 Delivery Device Cannula; PO2 87 mmHG (75-100); SITE L Radial; SO2 96 % (95-99); Total Carbon Dioxide > 50 mmol/L; pCO2 86.2 mmHg (35-45); pH 7.39 (7.35-7.45)
[2024-03-12] MEDS: Ipratropium/Albuterol Sulfate 3 ML AMPUL.NEB INHALATION (23:56)
[2024-03-12 23:57] VITALS: PULSE 87; RESP 24
[2024-03-13 00:04] VITALS: BP 119/65; PULSE 91; RESP 18; TEMP 37; O2SAT 98
[2024-03-13 00:09] VITALS: O2SAT 97
[2024-03-13 00:25] LABS: Anion Gap 1 (5-15); BUN 15 mg/dL (7-18); BUN/Creat Ratio 23.2 RATIO (10-20); Calcium,Total 9.3 mg/dL (8.5-10.1); Chloride 95 mmol/L (98-107); Creatinine, Serum 0.65 mg/dL (0.55-1.02); EST Glomerular Filtration Rate 97 mL/min (>60); Est Glom Filt Rate - Afr Amer 117 mL/min (>60); Glucose 153 mg/dL (74-106); Potassium 5.3 mmol/L (3.5-5.1); Sodium Level 140 mmol/L (136-145)
[2024-03-13 00:34] VITALS: BP 112/61; PULSE 91; RESP 18; TEMP 37; O2SAT 98
[2024-03-13 00:38] LABS: Absolute Lymphocyte Count 1.23 X10^3/uL (0.83-4.51); Absolute Neutrophil Count 10.2 X10^3/uL (2.0-7.7); Basophil# 0.09 X10^3/uL; Basophil% 0.7 % (0-1); Eosinophil# 0.03 X10^3/uL; Eosinophils% 0.2 % (0-5); Hematocrit 35.4 % (37-47); Hemoglobin 10.4 g/dL (12.0-15.0); Lymphocyte # 1.23 X10^3/ul (0.83-4.51); Lymphocyte % 9.9 % (19-41); Mean Corp Hgb Conc 29.4 g/dL (32-36); Mean Corpuscular Hgb 26.9 pg (27.0-32.0); Mean Corpuscular Volume 91.7 fL (81-99); Mean Platelet Vol. 10.4 fl (6.2-12.0); Monocyte% 3.2 % (0-10); NRBC Flagged by Analyzer 0 % (0-5); Neutrophil # 10.15 X10^3/uL (2.7-7.7); Neutrophil % 81.7 % (47-70); Platelet Count 261 K/mm3 (150-450); RBC Distribution Width CV 15.8 % (11.6-14.6); RBC Distribution Width SD 52.8 fl (35.1-43.9); Red Blood Count 3.86 M/mm3 (4.2-5.4); White Blood Count 12.4 K/mm3 (4.4-11.0)
== END 2024-03-13 00:36 | disposition left against medical advice (07) ==
PROVIDERS: Emergency Provider Emergency Medicine; PCP Internal Medicine; Visit Provider Emergency Medicine
DX: J96.10 Chronic respiratory failure, unspecified whether with hypoxia or hypercapnia (principal); Z93.0 Tracheostomy status; I11.0 Hypertensive heart disease with heart failure; I50.32 Chronic diastolic (congestive) heart failure; J44.9 Chronic obstructive pulmonary disease, unspecified; R41.82 Altered mental status, unspecified; E78.5 Hyperlipidemia, unspecified; Z87.891 Personal history of nicotine dependence; E03.9 Hypothyroidism, unspecified; Z90.49 Acquired absence of other specified parts of digestive tract; Z86.73 Personal history of transient ischemic attack (TIA), and cerebral infarction without residual deficits; I25.2 Old myocardial infarction; G47.33 Obstructive sleep apnea (adult) (pediatric); K21.9 Gastro-esophageal reflux disease without esophagitis; Z86.718 Personal history of other venous thrombosis and embolism
CPT/HCPCS: 36600; 71045; 80048; 82803; 85025; 93005; 94640; 99283; A4216

== ENCOUNTER 2024-04-24 08:06 | Emergency (ER) | payer MEDICARE, SELFPAY ==
[2024-04-24 08:07] VITALS: BP 66/55; RESP 18; TEMP 36.8; O2SAT 108; BMI 22.8
[2024-04-24 08:17] VITALS: BP 127/46
--- NOTE | 2024-04-24 08:26 | EX.ED.DYSGE1 ---
HPI History of Present Illness Chief Complaint: Other, Pain/Inj Informant: patient and family Onset/Context/Timing Onset: Today Context: Sudden Onset Timing: Continuous Location: Neck Worsened by: Nothing Relieved by: Nothing Narrative Narrative: Patient presents after her tracheostomy tube fell out this morning. Patient states that it came out when she woke up this morning. Patient states that it has been in for several months. Patient states she has it in for COPD. Patient denies any cough or shortness of breath. Patient denies any chest pain. Patient denies any nausea or vomiting. Patient denies any fevers or chills. [facility] Medical History Hypothyroidism Former smoker BiPAP (biphasic positive airway pressure) dependence On home oxygen therapy Asthma Seizures Stroke/cerebrovascular accident Noncompliance Diastolic CHF History of alcohol abuse Aspiration pneumonia due to gastric secretions Carcinoma in situ of breast Benign neoplasm of colon Takotsubo cardiomyopathy (06/17/21) Ischemic cerebrovascular accident (CVA) (02/06/17) Non-rheumatic mitral regurgitation Anxiety and depression Non-ischemic cardiomyopathy Essential (primary) hypertension Secondary pulmonary arterial hypertension Chronic anemia GERD (gastroesophageal reflux disease) TIO (obstructive sleep apnea) History of non-ST elevation myocardial infarction (NSTEMI) (02/03/17) History of DVT of lower extremity (02/11/17) Insomnia Hyperlipidemia Daytime hypersomnia Hemorrhagic cerebrovascular accident (CVA) (02/09/17) COPD (chronic obstructive pulmonary disease) Home Medications ?Medication ?Instructions ?Recorded ?Last Taken ?Type cholecalciferol (vitamin D3) 25 25 mcg PO DAILY supplement 11/03/20 Unknown History mcg (1,000 unit) tablet (Vitamin D3) pantoprazole 40 mg tablet,delayed 40 mg PO DAILY GERD 11/03/20 11/15/23 History release (Protonix) aripiprazole 2 mg tablet (Abilify) 2 mg PO .daily QHS mental health / 08/25/22 11/15/23 History sleep atorvastatin 40 mg tablet 40 mg PO QHS cholesterol 08/25/22 11/15/23 History metoprolol succinate 25 mg 25 mg PO DAILY blood pressure 08/25/22 11/15/23 History tablet,extended release 24 hr phenytoin 100 mg/4 mL oral 100 mg (4 mL) PO Q8 seizures 30 10/12/22 Unknown Rx suspension days #360 mL duloxetine 30 mg capsule,delayed 30 mg PO DAILY mental health 11/11/22 11/15/23 History release furosemide 20 mg tablet 20 mg PO BIDCM diuretic 11/11/22 11/15/23 History mirtazapine 7.5 mg tablet 7.5 mg PO QHS mental health #30 11/11/22 11/14/23 Rx tabs albuterol sulfate 2.5 mg/3 mL 2.5 mg (3 mL) inhalation Q2H PRN 06/30/23 11/15/23 Rx (0.083 %) solution for nebulization PRN Dyspnea, wheezing #180 mL albuterol sulfate 90 mcg/actuation 2 inh inhalation Q4H breathing 06/30/23 11/15/23 Rx aerosol inhaler #8.5 grams fluticasone fur. 100 mcg-umeclid 1 inh inhalation DAILY breathing 06/30/23 11/15/23 Rx 62.5 mcg-vilant 25 mcg 30 days #60 ea inhalat.powder (Trelegy Ellipta) aspirin 81 mg tablet,delayed 81 mg PO DAILY heart health 11/15/23 11/15/23 History release (Adult Aspirin Regimen) escitalopram oxalate 20 mg tablet 20 mg PO DAILY mental health 11/15/23 11/15/23 History hydroxyzine pamoate 25 mg capsule 25 mg PO TID allergies 11/15/23 11/15/23 History ipratropium 0.5 mg-albuterol 3 mg 3 ml inhalation Q6H breathting 11/15/23 11/15/23 History (2.5 mg base)/3 mL nebulization soln zolpidem 10 mg tablet 10 mg PO QHS PRN insomnia 11/15/23 11/14/23 History acetaminophen 325 mg tablet 650 mg (2 x 325 mg) PO Q4H PRN PRN 11/18/23 Unknown Rx Fever, pain 1-04/13 #0 tabs dextromethorphan-guaifenesin 30 2 tab PO BID cough 7 days #28 tabs 11/18/23 Unknown Rx mg-600 mg tablet extended [id number] hr (Mucinex DM) sennosides 8.6 mg-docusate sodium 2 tab PO BID PRN PRN Constipation 11/18/23 Unknown Rx 50 mg tablet (Stool #0 tabs Softener-Stimulant Laxative) potassium chloride 20 mEq 20 meq PO BID supplement 01/28/24 Unknown History tablet,extended release(part/cryst) (Klor-Con M) prednisone 10 mg tablet 10 mg PO DAILY inflammation #30 03/03/24 Unknown Rx tabs L.acidophil,salivari-Bifido 1 cap PO BID #0 caps 03/08/24 Unknown Rx bifidum-Strep thermoph 175 mg capsule prednisone 20 mg tablet 20 mg PO DAILY #26 tabs 03/08/24 Unknown Rx nystatin 100,000 unit/mL oral 5 ml mucous membrane TID 03/24/24 Unknown Rx suspension inflammation #250 mL Allergy/AdvReac Type Severity Reaction Status Date / Time tetanus and diphtheria Allergy Hives Verified 04/24/24 08:07 toxoids (tetanus & diphtheria toxoids) Family History Sister Cancer lung Father Cancer lung Mother Cancer lung Surgical History S/P emergency tracheotomy for assistance in breathing History of tracheostomy S/P percutaneous endoscopic gastrostomy (PEG) tube placement History of left heart catheterization (06/17/21) History of bilateral cataract extraction Hx of appendectomy H/O: section History of lumpectomy History of cholecystectomy Social History household members: spouse Smoking Status: Former smoker how long ago did patient quit smokin, 1pk/day second hand exposure: Yes alcohol intake: former substance use type: does not use what type of physical activity do you participate in: walking frequency: daily ROS ROS ED Constitutional Constitutional ED: Denies chills or fever(s) Eyes Eyes: Denies blurry vision or change in vision ENT ENT ED: Denies rhinorrhea or sore throat Cardiovascular Cardiovascular: Denies chest pain or palpitations Respiratory/Chest Respiratory/Chest: Denies cough or dyspnea Gastrointestinal Gastrointestinal: Denies nausea or vomiting Genitourinary Genitourinary ED: Denies dysuria or hematuria Musculoskeletal Musculoskeletal: Denies back pain or neck pain Integumentary Denies abscess or rash Neurologic Neurologic: Denies headache(s) or weakness Allergic/Immunologic Allergic/Immunologic ED: Denies mouth swelling or urticaria EXAM Physical Exam Const Vital Signs: 04/24/24 08:07 04/24/24 08:13 04/24/24 08:17 Temperature 98.2 F Temperature Source Oral Respiratory Rate 18 Respiratory Effort Normal Respiratory Pattern Normal Blood Pressure 66/55 L 127/46 H Blood Pressure Mean 58 73 Pulse Ox 108 Oxygen Delivery Method Room Air Oxygen Flow Rate (L/min) 04/24/24 09:03 Temperature Temperature Source Respiratory Rate Respiratory Effort Respiratory Pattern Blood Pressure Blood Pressure Mean Pulse Ox 50 Oxygen Delivery Method Trach Collar Oxygen Flow Rate (L/min) 12 Positive well nourished and well developed General Appearance ED: well developed and NAD HEENT Reports moist mucous membranes Neck supple and no JVD Neck Narrative: Tracheostomy tube site is patent. There is some mild bleeding noted. There is no edema noted. Resp normal respiratory effort and clear to auscultation bilaterally Cardio regular rate and regular rhythm GI non-tender and non-distended Palpation: soft Neuro oriented x3, CN's II-XII intact bilaterally and no sensory deficits noted Sensorium / Orientation: alert Motor Exam: strength 5/5 throughout Psych mental status grossly normal MDM MDM MDM Narrative Medical decision making narrative: Patient was advised of the need for replacement of the tracheostomy tube. Patient is agreeable with this. Chest x-ray will be obtained to assess for placement after the tracheostomy tube has been replaced. Radiography Chest X-Ray - ED: 2 View, Read by ED Physician, Read by Radiologist and No Acute Disease Diagnostic Testing: Clinical Impression(s) from Imaging Studies Chest X-Ray 04/24/24 08:50 IMPRESSION: No acute pulmonary process Satisfactory appearance of the tracheostomy tube Electronically Signed: Gerald Arevalo MD at 9:11 EDT , [place] and lateral chest x-ray was obtained. There are 2 views. On my independent interpretation, lung smith are clear. Tracheostomy tube is in place. There is normal cardiac silhouette. Bony thorax is normal. There is no acute process noted. Radiologist also interpreted the x-ray and agrees. Treatment and Re-Evaluation :: I attempted to pass a 6 Shiley tracheostomy tube without success. Patient was unable to tolerate this. 2% lidocaine jelly was used to lubricate the tube. Repeat attempt was attempted without success. A #4 Shiley was then lubricated with 2% lidocaine jelly. This was passed into the trachea. Patient tolerated the procedure well. Chest x-ray confirmed placement. There is no subcutaneous emphysema noted. There is good air passage in and out of the tube. Patient was instructed to continue her tracheostomy care as previously prescribed. 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 Patient and family understood and were agreeable with the plan. All questions were answered. Discharge Plan Triage Chief Complaint: Other, Pain/Inj ED Provider: Pete Harris Dx/Rx/DC Orders Clinical Impression: Encounter for tracheostomy tube change, COPD (chronic obstructive pulmonary disease) Instructions: ED Tracheostomy Care Prescriptions: No Action atorvastatin 40 mg tablet 40 mg PO QHS MDD 40 metoprolol succinate 25 mg tablet extended release 24 hr 25 mg PO DAILY MDD 25 aripiprazole [Abilify] 2 mg tablet 2 mg PO .daily QHS MDD 2mg albuterol sulfate 90 mcg/actuation HFA aerosol inhaler 2 inh inhalation Q4H Qty: 8.5 11RF albuterol sulfate 2.5 mg /3 mL (0.083 %) solution for nebulization 2.5 mg inhalation Q2H PRN PRN (Reason: Dyspnea, wheezing) Qty: 180 6RF Trelegy Ellipta 100-62.5-25 mcg blister with device 1 inh INHALATION DAILY 30 Days Qty: 60 6RF nystatin 100,000 unit/mL suspension 5 ml mucous membrane TID Qty: 250 1RF Rx Instructions: swish and swallow 5 cc three times per day for 10 days pantoprazole [Protonix] 40 mg Tablet,Delayed Release (Dr/Ec) 40 mg PO DAILY cholecalciferol (vitamin D3) [Vitamin D3] 25 mcg (1,000 unit) Tablet 25 mcg PO DAILY phenytoin 100 mg/4 mL Suspension 100 mg PO Q8 30 Days Qty: 360 2RF furosemide 20 mg tablet 20 mg PO BIDCM MDD 40 duloxetine 30 mg capsule,delayed release(DR/EC) 30 mg PO DAILY MDD 60 mirtazapine 7.5 mg tablet 7.5 mg PO QHS Qty: 30 0RF potassium chloride [Klor-Con M20] 20 mEq tablet,ER particles/crystals 20 meq PO BID aspirin [Adult Aspirin Regimen] 81 mg tablet,delayed release (DR/EC) 81 mg PO DAILY zolpidem 10 mg tablet 10 mg PO QHS PRN (Reason: insomnia) ipratropium-albuterol 0.5 mg-3 mg(2.5 mg base)/3 mL solution for nebulization 3 ml inhalation Q6H Rx Instructions: EVERY 6 HOURS WHILE AWAKE hydroxyzine pamoate 25 mg capsule 25 mg PO TID escitalopram oxalate 20 mg tablet 20 mg PO DAILY acetaminophen 325 mg Tablet 650 mg PO Q4H PRN PRN (Reason: Fever, pain 1-04/13) Qty: 0 0RF sennosides-docusate sodium [Stool Softener-Stimulant Laxat] 8.6-50 mg Tablet 2 tab PO BID PRN PRN (Reason: Constipation) Qty: 0 0RF Mucinex DM 30-600 mg Tablet Extended Release 12 Hr 2 tab PO BID 7 Days Qty: 28 0RF prednisone 10 mg tablet 10 mg PO DAILY Qty: 30 0RF Rx Instructions: 4 tabs daily for 3 days, then 3 tabs daily for 3 days, then 2 tabs daily for 3 days, then 1 tab daily for 3 days L.acidoph,saliva-B.bif-S.therm 175 mg Capsule 1 cap PO BID Qty: 0 0RF prednisone 20 mg tablet 20 mg PO DAILY Qty: 26 0RF Rx Instructions: 40 mg daily for 5 days, 30 mg for 5 days, 20 mg for 5 days and 10 mg for 7 days Primary Care Provider: Maryam Pineda Referrals: Maryam Pineda MD [Primary Care Provider] - 3-5 Days Print Language: Lao Disposition Disposition: Home, Self Care
--- NOTE | 2024-04-24 08:50 | RAD_ITS ---
STUDY: X-RAY CHEST REASON FOR EXAM: Female, 68 years old. Tracheostomy tube placement TECHNIQUE: PA and lateral views of the chest. COMPARISON: 03/13/2024 FINDINGS: [Replaced tracheostomy tube is in satisfactory position, tip is 5 cm above the claude The lungs are clear and expanded. There is no demonstrated pleural abnormality. Previously noted right upper lobe infiltrate has cleared. Normal size heart. Normal mediastinum and jacinto. Normal visualized pulmonary arteries. Normal visualized aortic arch and descending thoracic aorta. Normal visualized thoracic spine. Normal visualized ribs, clavicles, and shoulders. There is no demonstrated abnormality of the visualized soft tissue structures of the upper abdomen. RAD/Chest PA and Lateral IMPRESSION: No acute pulmonary process Satisfactory appearance of the tracheostomy tube Electronically Signed: Gerald Arevalo MD at 9:11 EDT ,
[2024-04-24 09:03] VITALS: O2SAT 50
[2024-04-24 09:10] VITALS: BP 147/78; PULSE 78; RESP 16; O2SAT 92
[2024-04-24 09:49] VITALS: BP 147/84; PULSE 88; RESP 20; TEMP 36.6; O2SAT 94
== END 2024-04-24 09:50 | disposition home or self-care (01) ==
PROVIDERS: Emergency Provider Emergency Medicine; PCP Internal Medicine; Visit Provider Emergency Medicine
DX: Z43.0 Encounter for attention to tracheostomy (principal); I11.0 Hypertensive heart disease with heart failure; I50.32 Chronic diastolic (congestive) heart failure; J44.9 Chronic obstructive pulmonary disease, unspecified; R56.9 Unspecified convulsions; Z87.891 Personal history of nicotine dependence; E78.5 Hyperlipidemia, unspecified; Z86.73 Personal history of transient ischemic attack (TIA), and cerebral infarction without residual deficits; I25.2 Old myocardial infarction; G47.33 Obstructive sleep apnea (adult) (pediatric); Z99.81 Dependence on supplemental oxygen; K21.9 Gastro-esophageal reflux disease without esophagitis; Z79.899 Other long term (current) drug therapy; G47.00 Insomnia, unspecified; F41.8 Other specified anxiety disorders; Z79.82 Long term (current) use of aspirin; Z79.51 Long term (current) use of inhaled steroids; Z98.41 Cataract extraction status, right eye; Z98.42 Cataract extraction status, left eye; Z90.49 Acquired absence of other specified parts of digestive tract
CPT/HCPCS: 31502; 31720; 71046; 99252; 99282; G0463

== ENCOUNTER 2024-04-29 10:11 | Inpatient (IN) | payer MEDICARE, SELFPAY ==
[2024-04-29] VITALS (22 sets, daily range): BP systolic 77–119; BP diastolic 51–88; PULSE 85–114; RESP 16–26; TEMP 36.4–36.7; O2SAT 83–100; BMI 24.2; BMI 24.8
--- NOTE | 2024-04-29 10:18 | EKG12_ITS ---
Test Reason : sob Blood Pressure : / mmHG Vent. Rate : 097 BPM Atrial Rate : 097 BPM P-R Int : 130 ms QRS Dur : 084 ms QT Int : 348 ms P-R-T Axes : 063 051 065 degrees QTc Int : 441 ms Normal sinus rhythm Cannot rule out Inferior infarct (cited on or before 09-NOV-2022) Abnormal ECG Confirmed by LINDSEY DE LEON MD ([id number]), sound editor JUDY BE ([id number]) on 05/01/2024 9:31:02 AM Referred By: Confirmed By:LINDSEY DE LEON MD
--- NOTE | 2024-04-29 10:26 | EX.ED.DYSGE1 ---
HPI History of Present Illness Chief Complaint: Shortness of Breath Detail of Chief Complaint: Myoclonic jerking. Generalized weakness. Informant: patient, family (Niece and brother.) and EMS Onset/Context/Timing Onset: Today Context: Gradual Onset Timing: Continuous Current Severity: Mild Maximum Severity: Mild Narrative Narrative: 68-year-old female extensive past medical history of asthma, COPD, CHF, prior stroke and intercranial bleed with dry surgery, UT and DVT. She has both a trach and a PEG. Patient can eat and drink. She has a seizure history for she is on Dilantin. Cording the family she has been weak recently. And 1 8 got her to the bathroom today she was very weak and almost fell 3 times. He denies any vomiting or diarrhea. A new cough. No chest or abdominal pain. No fever. Patient lives at home. Prior similar symptoms: No Recent Illness/Hospitalization: No PFSH [facility], [facility] Medical History Hypothyroidism Former smoker BiPAP (biphasic positive airway pressure) dependence On home oxygen therapy Asthma Seizures Stroke/cerebrovascular accident Noncompliance Diastolic CHF History of alcohol abuse Aspiration pneumonia due to gastric secretions Carcinoma in situ of breast Benign neoplasm of colon Takotsubo cardiomyopathy (06/17/21) Ischemic cerebrovascular accident (CVA) (02/06/17) Non-rheumatic mitral regurgitation Anxiety and depression Non-ischemic cardiomyopathy Essential (primary) hypertension Secondary pulmonary arterial hypertension Chronic anemia GERD (gastroesophageal reflux disease) TIO (obstructive sleep apnea) History of non-ST elevation myocardial infarction (NSTEMI) (02/03/17) History of DVT of lower extremity (02/11/17) Insomnia Hyperlipidemia Daytime hypersomnia Hemorrhagic cerebrovascular accident (CVA) (02/09/17) COPD (chronic obstructive pulmonary disease) Home Medications ?Medication ?Instructions ?Recorded ?Last Taken ?Type cholecalciferol (vitamin D3) 25 25 mcg PO DAILY supplement 11/03/20 Unknown History mcg (1,000 unit) tablet (Vitamin D3) pantoprazole 40 mg tablet,delayed 40 mg PO DAILY GERD 11/03/20 11/15/23 History release (Protonix) aripiprazole 2 mg tablet (Abilify) 2 mg PO .daily QHS mental health / 08/25/22 11/15/23 History sleep atorvastatin 40 mg tablet 40 mg PO QHS cholesterol 08/25/22 11/15/23 History metoprolol succinate 25 mg 25 mg PO DAILY blood pressure 08/25/22 11/15/23 History tablet,extended release 24 hr phenytoin 100 mg/4 mL oral 100 mg (4 mL) PO Q8 seizures 30 10/12/22 Unknown Rx suspension days #360 mL duloxetine 30 mg capsule,delayed 60 mg PO DAILY mental health 11/11/22 11/15/23 History release furosemide 20 mg tablet 20 mg PO BIDCM diuretic 11/11/22 11/15/23 History mirtazapine 7.5 mg tablet 7.5 mg PO QHS mental health #30 11/11/22 11/14/23 Rx tabs albuterol sulfate 2.5 mg/3 mL 2.5 mg (3 mL) inhalation Q2H PRN 06/30/23 11/15/23 Rx (0.083 %) solution for nebulization PRN Dyspnea, wheezing #180 mL albuterol sulfate 90 mcg/actuation 2 inh inhalation Q4H breathing 06/30/23 11/15/23 Rx aerosol inhaler #8.5 grams fluticasone fur. 100 mcg-umeclid 1 inh inhalation DAILY breathing 06/30/23 11/15/23 Rx 62.5 mcg-vilant 25 mcg 30 days #60 ea inhalat.powder (Trelegy Ellipta) aspirin 81 mg tablet,delayed 81 mg PO DAILY heart health 11/15/23 11/15/23 History release (Adult Aspirin Regimen) escitalopram oxalate 20 mg tablet 20 mg PO DAILY mental health 11/15/23 11/15/23 History hydroxyzine pamoate 25 mg capsule 25 mg PO TID anxiety 11/15/23 11/15/23 History ipratropium 0.5 mg-albuterol 3 mg 3 ml inhalation Q6H breathting 11/15/23 11/15/23 History (2.5 mg base)/3 mL nebulization soln zolpidem 10 mg tablet 10 mg PO QHS PRN insomnia 11/15/23 11/14/23 History acetaminophen 325 mg tablet 650 mg (2 x 325 mg) PO Q4H PRN PRN 11/18/23 Unknown Rx Fever, pain 1-04/13 #0 tabs dextromethorphan-guaifenesin 30 2 tab PO BID cough 7 days #28 tabs 11/18/23 Unknown Rx mg-600 mg tablet extended adwflia20 hr (Mucinex DM) sennosides 8.6 mg-docusate sodium 2 tab PO BID PRN PRN Constipation 11/18/23 Unknown Rx 50 mg tablet (Stool #0 tabs Softener-Stimulant Laxative) potassium chloride 20 mEq 20 meq PO BID supplement 01/28/24 Unknown History tablet,extended release(part/cryst) (Klor-Con M) L.acidophil,salivari-Bifido 1 cap PO BID #0 caps 03/08/24 Unknown Rx bifidum-Strep thermoph 175 mg capsule nystatin 100,000 unit/mL oral 5 ml mucous membrane TID 03/24/24 Unknown Rx suspension inflammation #250 mL buspirone 5 mg tablet 5 - 10 mg PO TID 04/29/24 Unknown History Allergy/AdvReac Type Severity Reaction Status Date / Time tetanus and diphtheria Allergy Hives Verified 04/29/24 10:23 toxoids (tetanus & diphtheria toxoids) Family History Sister Cancer lung Father Cancer lung Mother Cancer lung Surgical History S/P emergency tracheotomy for assistance in breathing History of tracheostomy S/P percutaneous endoscopic gastrostomy (PEG) tube placement History of left heart catheterization (06/17/21) History of bilateral cataract extraction Hx of appendectomy H/O: section History of lumpectomy History of cholecystectomy Social History household members: spouse Smoking Status: Former smoker how long ago did patient quit smokin, 1pk/day second hand exposure: Yes alcohol intake: former substance use type: does not use what type of physical activity do you participate in: walking frequency: daily ROS ROS ED ROS Narrative Denies recent illness. Generalized weakness. Constitutional Constitutional ED: Denies chills or fever(s) Eyes Eyes: Denies blurry vision ENT ENT ED: Denies ear pain Cardiovascular Cardiovascular: Denies chest pain Respiratory/Chest Respiratory/Chest: Denies cough or dyspnea Gastrointestinal Gastrointestinal: Denies abdominal pain, constipation, diarrhea, nausea or vomiting Genitourinary Genitourinary ED: Denies dysuria or hematuria Musculoskeletal Musculoskeletal: Denies arthralgias Integumentary Denies abscess Neurologic Neurologic: Denies headache(s) Psychiatric Psychiatric: Denies anxiety or depression Endocrine Endocrinology: Denies cold intolerance Hematologic/Lymphatic Hematologic/Lymphatic: Reports none Allergic/Immunologic Allergic/Immunologic ED: Denies mouth swelling, tongue swelling or urticaria EXAM Physical Exam Narrative Exam Narrative: Sick 8-year-old female sitting upright in bed. Niece and brother at bedside. Patient has trach and is chronically on 3 L of oxygen. She has no acute distress. She is awake and alert. Eyes are open. H EENT exam unremarkable. Mytrex membranes. Neck nontender. Tracheostomy in place. Lungs clear to auscultation bilaterally. No distress. Heart regular rhythm rate about 100 no murmur. Chest wall ribs nontender. Abdomen soft nontender. Nondistended. Normal bowel sounds no peritoneal signs. Moving all 4 extremities. Equal symmetrical mail clerk strength dorsi and plantarflexion. Calves are nontender without edema. Neurologically she is awake and alert. Answering questions following commands. Const Vital Signs: 04/29/24 10:13 04/29/24 10:18 04/29/24 10:26 Temperature 97.7 F L Temperature Source Axillary Pulse Rate 101 H Respiratory Rate 20 H Respiratory Effort Normal Non-Labored Blood Pressure 119/80 Blood Pressure Mean 93 Pulse Ox 94 Oxygen Delivery Method Nasal Cannula Nasal Cannula Nasal Cannula Oxygen Flow Rate (L/min) 5 5 5 Fraction of Inspired Oxygen (FIO2) 04/29/24 10:52 Temperature Temperature Source Pulse Rate 93 Respiratory Rate 16 Respiratory Effort Blood Pressure Blood Pressure Mean Pulse Ox 100 Oxygen Delivery Method Oxygen Flow Rate (L/min) Fraction of Inspired Oxygen (FIO2) 35 Positive well nourished and well developed; Negative for obese, cachectic, contractures or unkempt General Appearance ED: well developed and NAD; Negative for unkempt, cachectic, contractures, cyanotic, diaphoretic or pallor Nutritional Appearance: Negative for cachectic or obese HEENT Reports moist mucous membranes Negative for trauma or tenderness Eyes PERRL and EOMs intact bilaterally General Eye ED: Negative for pale conjunctiva Neck no lymphadenopathy, supple and no JVD Chest Wall inspection of chest normal and palpation of chest normal Resp normal respiratory effort and clear to auscultation bilaterally Effort and Inspection: Negative for retractions Auscultation: Negative for rales, rhonchi, wheezes or diminished lung sounds Cardio regular rate, regular rhythm, S1 normal heart sound, S2 normal heart sound and no murmurs GI normal to inspection, nondistended, normoactive bowel sounds, non-tender, non-distended and no masses Inspection: Negative for abdominal distention Palpation: soft; Negative for tender, guarding or rebound tenderness present Back/Spine no CVA tenderness Extremity normal to inspection Extremity Narrative: Thin with loss of muscle mass. General Extremety ED: Negative for edema or tenderness General Extremity: Negative for edema Neuro oriented x3 Sensorium / Orientation: alert; Negative for orientation impaired, lethargic or stuporous Motor Exam: general weakness Psych mental status grossly normal Appearance: Negative for unkempt Attitude: No agitated Mood & Affect: Negative for depressed, anxious or tearful Skin no rashes or lesions noted and no wounds General Skin Exam: Negative for jaundice or pallor Lesions: No lesion noted Rashes: No rashes noted Trauma: Negative for abrasion MDM MDM MDM Narrative Medical decision making narrative: 68-year-old female with extensive past medical history family complaining of myoclonic jerking and generalized weakness. This could be from acute infection versus dehydration versus electrolyte abnormalities versus other etiologies. Screening labs chest x-ray and EKG will be obtained. Respiratory was in the room attending the patient and they were speaking of the family and a conversation patient has a CPAP or BiPAP machine at home and the patient does not like using it and has not been using it as she supposed to every night. We obtained a VBG and her pH was 7.2 with a pCO2 of 109. Repeat exam at 11:20 AM patient is doing much better. She clinically looks better. She is breathing much more easily on the ventilator. She was placed on the ventilator due to respiratory failure, respiratory acidosis and CO2 retention. History & Record Review Discussion w/independent historian: Patient Additional record(s) reviewed:: Prior inpatient record, Prior outpatient record, Prior ED visit and Prior labs Lab Data Attestation: I reviewed the patient's lab results. Lab results narrative: Venous blood gas shows a pH of 7.24. pCO2 of 109. pO2 of 46 and bicarb of 47. Saturation 70%. Again this is a VBG. CBC shows a white count 7.6. H&H 9.5 and 34. Platelets 196. Consistent with prior labs. Electrolytes show CO2 greater 45. BUN and creatinine 12 and 0.9. Glucose 132. Troponin 26. UA negative. No white cells. 5-10 red cells. 2+ bacteria. No nitrites. Chest x-ray chronic changes with a trach. No pneumonia. Labs: Laboratory Results - last 24 hr 04/29/24 04/29/24 10:29 10:40 WBC 7.6 RBC 3.50 L Hgb 9.5 L Hct 34.3 L MCV 98.0 MCH 27.1 MCHC 27.7 L RDW Std Deviation 53.1 H RDW Coeff of Deonte 14.7 H Plt Count 196 MPV 10.2 Immature Gran % (Auto) 0.800 Neut % (Auto) 64.8 Lymph % (Auto) 20.6 Hawkins % (Auto) 10.5 H Eos % (Auto) 2.6 Baso % (Auto) 0.7 Absolute Neuts (auto) 5.0 Absolute Lymphs (auto) 1.57 Nucleated RBC % 0 Sodium 141 Potassium 4.3 Chloride 99 Carbon Dioxide > 45.0 H* Anion Gap TNP BUN 12 Creatinine 0.79 Estim Creat Clear Calc 54.90 Est GFR (MDRD) Af Amer 93 Est GFR (MDRD) Non-Af 77 BUN/Creatinine Ratio 15.2 Glucose 132 H Calcium 9.2 Troponin I High Sens 26 Urine Color Yellow Urine Clarity Clear Urine pH 6.0 Ur Specific [place] 1.020 Urine Protein 100 H Urine Glucose (UA) Normal Urine Ketones Negative Urine Occult Blood 50 H Urine Nitrite Negative Urine Bilirubin Negative Urine Urobilinogen Normal Ur Leukocyte Esterase Negative Urine RBC 5-10 SEEN Urine WBC 0-5 SEEN Ur Squamous Epith Cells 0-5 SEEN Urine Bacteria 2+ Hyaline Casts 10-25 SEEN Urine Mucus 2+ ABG Data ABG results: ABG 04/29/24 10:32 Specimen Type GÉNESIS Sample Site Not entered VBG pH 7.24 L VBG pO2 47 H VBG HCO3 47 H VBG O2 Sat (Calc) 70 VBG Base Excess 20 H POC Mix VBG pCO2 Pt Tmp 109.4 H* O2 Delivery Device Not entered Crit Call To/Read Back Yes Blood Gas Notified Whom vickers Blood Gas Notified Time 10:34:50 Radiography Chest X-Ray - ED: 2 View, Read by ED Physician, Heart, Lungs, Mediastinum, Bony Structures, No Acute Disease and Chronic Changes Diagnostic Testing: Chest x-ray, portable, single view interpreted by myself shows chronic changes. No acute process. Normal cardiac silhouette. Normal lung smith. Tracheostomy tube. Rhythm Strip Rhythm Strip: Sinus Rhythm Rate: 97 Ectopy: None EKG Initial EKG: Attestation: I personally reviewed and interpreted this EKG as follows: Interpretation: Sinus Rhythm and No Acute Injury Pattern Comments: Normal sinus rhythm rate of 97 no acute signs of UT or ischemia. There is artifact secondary to myoclonic jerking. Critical Care Time Critical Care Time: Yes Critical care time (excluding procedures): 30-74 minutes, Including time spent:, Discussing w/Patient &/or Family/Manager [place], Discussing w/Consultants, Arranging Admission or Transfer, Performing Direct Patient Care at Bedside and - (35 minutes) Discharge Plan Dx/Rx/DC Orders Clinical Impression: Respiratory failure, Acute respiratory acidosis, Medical non-compliance, Chronic anemia, History of stroke Disposition Disposition: Acute Care Hospital [facility]
[2024-04-29 10:36] LABS: Absolute Lymphocyte Count 1.57 X10^3/uL (0.83-4.51); Basophil# 0.05 X10^3/uL; Basophil% 0.7 % (0-1); Eosinophils% 2.6 % (0-5); Hematocrit 34.3 % (37-47); Hemoglobin 9.5 g/dL (12.0-15.0); Lymphocyte # 1.57 X10^3/ul (0.83-4.51); Lymphocyte % 20.6 % (19-41); Mean Corp Hgb Conc 27.7 g/dL (32-36); Mean Corpuscular Hgb 27.1 pg (27.0-32.0); Mean Platelet Vol. 10.2 fl (6.2-12.0); Monocyte% 10.5 % (0-10); NRBC Flagged by Analyzer 0 % (0-5); Neutrophil # 4.95 X10^3/uL (2.7-7.7); Neutrophil % 64.8 % (47-70); Platelet Count 196 K/mm3 (150-450); RBC Distribution Width CV 14.7 % (11.6-14.6); RBC Distribution Width SD 53.1 fl (35.1-43.9); White Blood Count 7.6 K/mm3 (4.4-11.0)
[2024-04-29 10:38] LABS: Blood Gas Specimen Type VEN; O2 Delivery Device Not entered; SITE Not entered; VBG BASE EXCESS 20 mmol/L (-1.0-3.5); VBG Bicarbonate 47 mmol/L (22-26); VBG PO2 47 mmHg (25-40); VBG SO2 70 % (50-70); VBG pCO2 109.4 mmHg (41-51); VBG pH 7.24 (7.32-7.42)
--- OUTSIDE RECORDS SUMMARY | 2024-04-29 10:42 | XMS RPT_ITS | CCD ---
Author Organization [facility] Care Team Providers Care Production Superintendent Name Role Phone DYLON MOONEY Unavailable Unavailable [...] Primary Care Provider RADHA DAY Referring Unavailable HINDUJAVERONICA P Admitting Unavailable CONSULT, TRAUMA Consulting Unavailable MARYAM FRANCO Primary Care Unavailable SEVERO JURADO Attending Unavailable MARYAM FRANCO Primary Care Unavailable SEVERO JURADO Attending Unavailable SEVERO JURADO Admitting Unavailable MARYAM FRANCO Primary Care Unavailable DR JOY STAHL MD Primary Care Physician Maryam Franco MD Primary Care Provider Maryam Franco MD Primary Care Provider MARYAM FRANCO Primary Care Unavailable RAMIRO ZAMARRIPA Y Admitting Unavailable RAMIRO ZAMARRIPA Y Attending Unavailable LONNIE FROST Consulting Unavailable Maryam Franco MD Primary Care Provider [phone] Seth Chawla RPh Unavailable Geo KILPATRICK, Jordan Unavailable Unavailable VINCE GA Attending Unavailable VINCE GA Admitting Unavailable CARLTON OSBORN Consulting Unavailable MARYAM FRANCO Primary Care Unavailable Joy Stahl Primary Care Provider Miriam MENDES, Maryam Primary Care Provider URIEL MENDES, KAILEY Attending Unavailable LALIT MENDES, DR HAMILTON Primary Care Unavailab de FARIAS MD, DR COURTNEY MIKE Consulting Unavailmarj SLOAN MD, JENNA Marino Consulting Unavailable Joy Stahl Primary Care Provider [phone] Maryam Franco MD Primary Care Provider NONE, PCP Referring Unavailable JACKIE JUDGE Consulting Unavailable PEPE DELAROSA Attending Unavailable GANTA, MARYAM Primary Care Unavailable ALAYNA GAXIOLA Admitting Unavailable JOY STAHL Primary Care Unavailable REJICHARLENE FARRAR Referring Unavailable JOY STAHL Primary Care Unavailable PAUL MCBRIDE Consulting Unavailable CRYS CANSECO Attending Unavailable REJI, CHARLENE Admitting Unavailable NONE, PCP Referring Unavailable GANTA, MARYAM Primary Care Unavailable PEPPER FLANNERY Attending Unavailable PEPPER FLANNERY Referring Unavailable JOAN JOHNSON Attending Unavailable OLDERJOAN Referring Unavailable GANTA, MARYAM Primary Care Unavailable OLDERJOAN Referring Unavailable GANTA, MARYAM Primary Care Unavailable LISE MAJOR Attending Unavailable GANTA, MARYAM Primary Care Unavailable JOANIE BENITEZ Attending Unavailable GANTA, MARYAM Primary Care Unavailable JOANIE BENITEZ Referring Unavailable GANTA, MARYAM Primary Care Unavailable DENBOWJOANIE Attending Unavailable GANTA, MARYAM Primary Care Unavailable GANTA, MARYAM Primary Care Unavailable ISSA [...] Attending Unavailable GANTA, MARYAM Primary Care Unavailable PEPPER FLANNERY Referring Unavailable GANTA, MARYAM Attending Unavailable Allergies Allergy Classification Reported Allergen(s) Allergy Type Date of Onset Reaction(s) Facility guaiFENesin / Phenylephrine (6 sources) guaiFENesin / Phenylephrine Drug Allergy [address] [facility] Work Phone: (1 source) traMADol; Translations: [TRAMADOL] Drug Allergy [facility] (20 sources) PHENYLEPHRINE-GUA IFENESIN; Translations: [PHENYLEPHRINE- AIFENESIN] Propensity to adverse reactions (disorder) 5 Intolerance [facility] Rep[facility] (20 sources) TETANUS VACCINES AND TOXOID; Translations: [TETANUS VACCINES AND TOXOID] Propensity to adverse reactions (disorder) 5 Swelling [facility] Rep[facility] (2 sources) tetanus toxoid vaccine, inactivated; Translations: [tetanus toxoid] Drug Allergy [facility] (disorder), Swelling (finding) [facility] (1 source) Tetanus immune globulin Drug Allergy 2 [facility] (4 sources) Tetanus vaccine Propensity to adverse reactions 5 Swelling [facility] Medications Current Medications Medication Drug Class(es) Dates [...] on above: Take 1 tablet by mari th every 8 hours as needed for pain for up to 7 days. [id number] 200 actuat albuterol 0.09 mg/actuat metered dose inhaler (20 sources) beta2-Adrenergic Agonist Start: 03-20-2024 take 2 puff(s) by inhalation every six hours as needed albuterol HFA (PROAIR HFA) 90 mcg/actuation inhaler Inhale 2 Puffs as instructed every 6 hours as needed. 1 Each 5 03/20/2024 Active Start: 02-06-2024 End: 02-13-2024 Start: 01-27-2022 End: 10-12-2023 Start: 01-09-2022 End: 07-26-2022 take 2 puff(s) by inhalation once daily as needed 2 puff, Inhalation, 4 TIMES DAILY NEEDED, Starting on Wed01/17/22 at 1245, Until Wed01/27/22 at 1901, Shortness of Breath Wait at least one(1) full minute between inhalations Start: 10-01-2016 End: 03-18-2024 take 2 puff(s) by inhalation every six hours as needed albuterol HFA (PROAIR HFA) 90 mcg/actuation inhaler Inhale 2 Puffs as instructed every 6 hours as needed. 1 Each 5 06/10/2023 Active Start: 07-01-2016 take 1 dose by [...] (SOB), # 6.7 gram(s), 0 Refill(s), Pharmacy: [facility] #[facility], 160, cm, 01/27/22 19:40:00 EDT, Height Start Date: 02/09/22 Status: Ordered Aluminum Hydroxide / Magnesium Hydroxide / Simethicone (1 source) Start: 02-10-20 Maalox Oral, q6h, PRN Indigestion, 0 Refill(s) Start Date: 02/09/22 Status: Ordered ARIPiprazole 2 mg oral tablet (20 sources) Atypical Antipsychotic Start: 03-20-20 24 take 1 tablet by mouth once daily ARIPiprazole (ABILIFY) 2 mg tablet Take 1 tablet by mouth once daily. 30 tablet 3 03/20/2024 Active Start: 05-29-2022 End: 02-13-2024 Comment on above: Take 1 tablet by mari th once daily. Artificial Tears (1 source) Start: 2 take 1 dose into the eye(s) twice daily as needed Artificial Tears Dose = 2 drop(s), Eyes, both, BID, PRN Dry eyes, 0 Refill(s) Start Date: 02/09/22 Status: Ordered atorvastatin 40 mg oral tablet (20 sources) HMG-CoA Reductase Inhibitor Start: End: 5 take 1 tablet by mouth once daily atorvastatin (LIPITOR) 40 mg tablet Take 1 tablet by mouth once daily. 30 tablet 5 03/20/2024 Active Comment on above: Take 1 tablet by mari th daily at bedtime. Take 1 tablet by mari th once daily. 120 actuat budesonide 0.16 mg/actuat / formoterol fumarate 0.0048 mg/actuat / glycopyrrolate 0.009 mg/actuat metered dose inhaler (2 sources) Corticosteroid, beta2-Adrenergic Agonist Start: Start: 01-09-2022 End: 01-27-2022 take 1 puff(s) by inhalation twice daily 1 puff, Inhalation, 2 TIMES DAILY, First dose on Wed01/09/22 at 1700, Until Discontinued busPIRone hydrochloride 5 mg oral tablet (18 sources) Start: 03-13-2024 busPIRone (BUS PAR) 5 mg tablet Indications: Anxiety Please take 1-2 tablets , 2 - 3 times a day. 90 tablet 1 03/13/2024 Active Start: 05-22-2022 End: 08-19-2022 take 1 tablet by mouth twice daily busPIRone (BUSPAR) 5 mg tablet Take 1 tablet by mouth twice daily. 60 tablet 1 05/22/2022 08/19/2022 Discontinued Comment on above: Take 1 tablet by mari twice daily. calcium carbonate 500 mg chewable tablet (1 source) Start: 02-09-2022 Tums 500 mg oral tablet, chewable Dose : 500 mg = 1 tab(s), Chewed, QID, PRN Heartburn, 0 Refill(s) Start Date: 02/09/22 Status: Ordered cholecalciferol 0.025 mg ora l capsule (20 sources) Vitamin D Start: 10-09-2023 End: 10-12-2024 Start: 02-23-2017 End: 02-15-2024 take 1 capsule by mouth once daily Cholecalciferol, Vitamin D3, 25 mcg (1,000 unit) cap Take 1 capsule by mouth once daily. 30 capsule 3 02/15/2024 Active Comment on above: Take 1 capsule by mo [facility] once daily. clonazePAM 1 mg oral tablet (1 source) Benzodiazepine Start: 07-01-20 clonazePAM 1 mg oral tablet Dose : 1 mg = 1 tab(s), Oral, BID Start Date: 07/01/16 Status: Ordered docusate sodium 100 mg oral capsule (1 source) Start: 02-10-20 Colace 100 mg oral capsule Dose : 100 mg = 1 cap(s), Oral, BID, PRN Constipation, 0 Refill(s) Start Date: 02/09/22 Status: Ordered doxycycline hyclate 100 mg oral tablet (1 source) Tetracycline-class Drug Start: 03-30-20 End: 04-09-20 take 1 tablet by mouth twice daily doxycycline (VIBRA-TABS) 100 mg tablet Take 1 tablet by mouth two times a day for 10 days. 20 tablet 03/30/2024 04/09/2024 Active DULoxetine 60 mg delayed release oral capsule (20 sources) Serotonin and Norepinephrine Reuptake Inhibitor Start: 03-20-20 take 1 capsule by mouth once daily DULoxetine (CYMBALTA) 60 mg capsule Indications: RLS (restless legs syndrome) , Anxiety Take 1 capsule by mouth once daily. 90 capsule 3 03/20/2024 Active Start: 02-05-2024 End: 02-13-2025 Start: 02-01-2024 End: 02-04-2024 Start: 05-06-2023 End: 09-23-2023 take 1 capsule by mouth once daily DULoxetine (CYMBALTA) 30 mg capsule Take 1 capsule by mouth once daily. 30 capsule 5 09/03/2023 09/23/2023 Discontinued Start: 03-30-2023 take 2 capsules by m outh once daily DULoxetine (CYMBALTA) 30 mg capsule Indications: fibromyalgia Take 2 capsules by mouth once daily. 56 capsule 1 03/30/2023 Active Start: 08-19-2022 End: 03-04-2023 take 2 capsules by mouth once daily DULoxetine (CYMBALTA) 30 mg capsule Indications: fibromyalgia Take 2 capsules by mouth once daily. 56 capsule 0 03/05/2023 Active Start: 01-15-2022 End: 01-19-2022 60 mg, Per NG tube, DAILY, F irst dose (after last modification) on [facility] 01/15/22 at 0900, Until Discontinued Swallow capsule whole; do not crush or chew. May add contents of capsule to apple juice or applesauce (but NOT chocolate) taking care not to crush the pellets and damage the enteric coating. Start: 07-18-2021 End: 03-18-2024 take 1 capsule by mouth once daily DULoxetine (CYMBALTA) 60 mg capsule Indications: RLS (restless legs syndrome) , Anxiety Take 1 capsule by mouth once daily. 90 capsule 3 09/23/2023 Active Comment on above: Take 1 capsule by mo uth once daily. Take 2 capsules by m outh once daily. escitalopram 20 mg oral tablet (20 sources) Serotonin Reuptake Inhibitor Start: take 1 tablet by mouth once daily escitalopram oxalate (LEXAPRO) 20 mg tablet Take 1 tablet by mouth once daily. 30 tablet 5 03/20/2024 Active Start: 10-08-2023 End: 10-12-2023 20 mg, Per G Tube, Daily, Fi rst dose (after last modification) on Wed10/08/23 at 0900 Start: 09-29-2023 End: 10-07-2023 take 10 mg by mouth once daily 10 mg, Oral, Daily, [facility]ir [facility] dose on Wed09/29/23 at 0945 Start: 09-23-2023 End: 02-13-2024 Start: 05-04-2023 End: 09-23-2023 take 1 tablet by mouth once daily escitalopram oxalate (LEXAPRO) 20 mg tablet Take 1 tablet by mouth once daily. 90 tablet 3 05/04/2023 09/23/2023 Discontinued Start: 11-04-2022 End: 11-13-2022 take 1 tablet by mouth once daily escitalopram oxalate (LEXAPRO) 5 mg tablet Take 1 tablet by mouth once daily. 30 tablet 5 11/04/2022 11/13/2022 Discontinued (Discontinued by another Health Care Provider) Start: 05-22-2022 End: 11-04-2022 take 1 tablet by mouth once daily escitalopram oxalate (LEXAPRO) 20 mg tablet Take 1 tablet by mouth once daily. 90 tablet 3 05/22/2022 11/04/2022 Discontinued Start: 02-09-2022 escitalopram 1 0 mg oral tablet Dose : 10 mg = 1 tab(s), Oral, qDay, # 30 tab(s), 0 Refill(s), Pharmacy: [facility], 160, cm, 01/27/22 19:40:00 EDT, Height Start Date: 02/09/22 Status: Ordered Start: 01-15-2022 End: 01-27-2022 Start: 01-10-2022 End: 01-14-2022 take 10 mg by mouth once daily 10 mg, Oral, DAILY, Fir st dose on 01/10/22 at 1130, Until Discontinued Start: 12-05-2021 take 1 tablet by mari th once daily escitalopram oxalate (LEXAPRO) 20 mg tablet Take 1 tablet by mouth once daily. 30 tablet 5 12/05/2021 Active Start: 11-24-2021 End: 12-05-2021 take 1 tablet by mouth once daily escitalopram oxalate (LEXAPRO) 10 mg tablet Take 1 tablet by mouth once daily. 90 tablet 1 11/24/2021 12/05/2021 Discontinued Start: 05-07-2021 End: 11-22-2021 take 1 tablet by mouth once daily escitalopram oxalate (LEXAPRO) 10 mg tablet Take 1 tablet by mouth once daily. 90 tablet 1 10/24/2021 11/22/2021 Discontinued Comment on above: Take 1 tablet by mari th once daily. Take 0.5 tablets by mouth once daily. 30 actuat fluticasone furoate 0.1 mg/actuat / umeclidinium 0.0625 mg/actuat / vilanterol 0.025 mg/actuat dry powder inhaler (4 sources) Anticholinergic, Corticosteroid, beta2-Adrenergic Agonist take 1 puff(s) by inhalation once daily fluticasone-umeclid in-vilanter (TRELEGY ELLIPTA) 100-62.5-25 mcg inhalation powder Inhale 1 Puff as instructed once daily. Active folic acid 1 mg oral tablet (20 sources) Start: 1 End: 5 take 1 tablet by mouth once daily folic acid 1 mg tablet Take 1 tablet by mouth once daily. 90 tablet 3 09/13/2023 Active Comment on above: Take 1 tablet by mari th once daily. 60 actuat formoterol fumarate 0.005 mg/actuat / mometasone furoate 0.2 mg/actuat metered dose inhaler (4 sources) Corticosteroid, beta2-Adrenergic Agonist Start: 4 End: 5 furosemide 20 mg oral tablet (20 sources) Loop Diuretic Start: 4 take 1 tablet by mouth twice daily furosemide (LASIX) 20 mg tablet Take 1 tablet by mouth two times a day. 60 tablet 3 03/20/2024 Active Start: 02-04-2024 End: 02-04-2024 Start: 02-03-2024 End: 02-03-2024 Start: 02-03-2024 End: 02-03-2024 Start: 10-13-2023 End: 10-12-2024 Start: 10-10-2023 End: 10-12-2023 20 mg, Per G Tube, Daily, Fi rst dose (after last modification) on 10/10/23 at 0900 Start: 10-09-2023 End: 10-09-2023 40 mg, Per G Tube, Daily, Fi rst dose (after last modification) on 10/09/23 at 0900 Start: 10-07-2023 End: 10-07-2023 40 mg, IntraVENous, Daily, F irst dose on Sara 10/07/23 at 0900 Start: 10-06-2023 40 mg, IntraVE Nous, 2 times daily, First dose on Wed10/06/23 at 0900, For 1 day Start: 09-28-2023 40 mg, IntraVE Nous, Once, On Wed09/29/23 at 1445, For 1 dose Start: 10-16-2022 End: 03-18-2024 take 1 tablet by mouth twice daily furosemide (LASIX) 20 mg tablet Take 1 tablet by mouth two times a day. 60 tablet 3 11/26/2023 Active Comment on above: Take 1 tablet by mari th twice daily. Take 1 tablet by mari th two times a day. gabapentin 300 mg oral capsule (20 sources) Anti-epileptic Agent Start: 02-23-2024 End: 05-23-2024 take 1 capsule by mouth once daily at bedtime gabapentin (NEURONTIN) 300 mg capsule Take 1 capsule by mouth daily at bedtime for 90 days. 30 capsule 2 02/23/2024 05/23/2024 Active Start: 02-17-2024 End: 05-17-2024 take 1 capsule by mouth once daily at bedtime gabapentin (NEURONTIN) 100 mg capsule Indications: neuropathic pain Take 1 capsule by mouth daily at bedtime for 90 days. 30 capsule 2 02/17/2024 02/23/2024 Discontinued Start: 09-30-2023 End: 01-28-2024 Start: 09-23-2023 End: 12-02-2023 take 1 capsule by mouth once daily at bedtime gabapentin (NEURONTIN) 300 mg capsule Indications: Insomnia, unspecified type , RLS (restless legs syndrome) , Anxiety Take 1 capsule by mouth daily at bedtime for 30 days. 30 capsule 5 09/23/2023 12/02/2023 Discontinued (Discontinued by Patient) Start: 03-03-2022 End: 06-01-2022 take 1 capsule by mouth twice daily gabapentin (NEURONTIN) 300 mg capsule Take 1 capsule by mouth twice daily for 90 days. 60 capsule 2 03/03/2022 06/01/2022 Active Comment on above: Take 1 capsule by mo ut twice daily for 90 days. Take 1 capsule by mo ut daily at bedtime for 30 days. Gauze Bandage 4 X 4 spge (4 sources) Start: 04-25-20 Gauze Bandage 4 X 4 spge Indications: Tracheostomy present (HCC) Apply 1 application to affected area as needed. 200 Each 2 04/25/2024 Active hydrOXYzine pamoate 25 mg oral capsule (20 sources) Antihistamine Start: 03-20-20 End: 07-18-19 take 1 capsule by mouth every eight hours as needed hydrOXYzine pamoate (VISTARIL) 25 mg capsule Take 1 capsule by mouth three times a day as needed for anxiety. 60 capsule 5 03/20/2024 07/18/2024 Active Start: 02-01-2024 End: 02-13-2024 Start: 09-30-2023 End: 10-12-2023 take 50 mg by mouth every six hours as needed for anxiety 50 mg, Oral, Every 6 hours PRN, anxiety, Starting on Sara 09/30/23 at 1558 Start: 09-29-2023 End: 09-30-2023 take 25 mg by mouth every six hours as needed for anxiety 25 mg, Oral, Every 6 hours PRN, anxiety, Starting on Wed09/29/23 at 1015 Start: 09-29-2023 End: 09-29-2023 take 25 mg by mouth every eight hours as needed for anxiety 25 mg, Oral, Every 8 hours PRN, anxiety, Starting on Wed09/29/23 at 0936 Start: 02-09-2022 End: 03-11-2022 hydrOXYzine hydrochloride 25 mg oral tablet Dose : 50 mg = 2 tab(s), Oral, q6h, PRN Anxiety, X 30 day(s), # 30 tab(s), 0 Refill(s), 03/11/22 8:46:00 EDT, Pharmacy: [facility], 160, cm, 01/27/22 19:40:00 EDT, Height Start Date: 02/09/22 Stop Date: 03/11/22 Status: Ordered Start: 01-27-2022 End: 10-16-2022 take 1 tablet by mouth every six hours as needed hydrOXYzine HCl (ATARAX) 50 mg tablet Take 50 mg by mouth every 6 hours as needed. 0 01/27/2022 10/16/2022 Discontinued (Duplicate Entry) Start: 01-19-2022 End: 01-27-2022 take 50 mg by mouth every six hours as needed 50 mg, Oral, EVERY 6 HOURS NEEDED, Starting on Wed01/19/22 at 1730, Until Wed01/27/22 at 1901, Anxiety Start: 01-14-2022 End: 01-19-2022 25 mg, Per NG tube, 3 TIMES DAILY NEEDED, Starting on Wed01/14/22 at 0806, Until Wed01/19/22 at 1421, Anxiety Start: 01-09-2022 End: 01-14-2022 take 25 mg by mouth three times daily as needed for anxiety 25 mg, Oral, 3 TIMES DAILY NEEDED, Starting on Wed01/09/22 at 0132, Until Wed01/14/22 at 0807, Anxiety Start: 12-23-2021 End: 01-29-2024 take 1 capsule by mouth every eight hours as needed hydrOXYzine pamoate (VISTARIL) 25 mg capsule Take 1 capsule by mouth three times a day as needed for anxiety. 60 capsule 5 10/01/2023 12/02/2023 Discontinued (Discontinued by Patient) Comment on above: Take 1 capsule by mo uth three times daily as needed. Take 50 mg by mouth every 6 hours as needed. Take 1 capsule by mo uth three times daily as needed for anxiety. Take 1 capsule by mo uth three times a day as needed for anxiety. L. acidophilus-L. salivarius-B. bifidum-S. thermophilus (ACIDOPHILUS) 175 mg capsule (10 sources) Start: 4 take 1 capsule by mouth once daily L. acidophilus-L. salivarius-B. bifidum-S. thermophilus (ACIDOPHILUS) 175 mg capsule Take 1 capsule by mouth once daily. 30 capsule 5 03/20/2024 Active MEDICAL SUPPLY (20 sources) Start: 3 MEDICAL SUPPLY Portable oxygen cylinders 1 Each 1 08/19/2022 Suspended Start: 08-19-2022 MEDICAL SUPPLY Portable oxygen cylinders 1 Each 1 08/19/2022 Active Comment on above: Portable oxygen cyli nders 24 hr metoprolol succinate 25 mg extended release oral tablet (20 sources) beta-Adrenergic [place] Start: 03-20-2024 take 1 tablet by mouth once daily metoprolol succinate ER (TOPROL XL) 25 mg 24 hr tablet Take 1 tablet by mouth once daily. 30 tablet 5 03/20/2024 Active Start: 08-19-2022 End: 03-18-2024 take 1 tablet by mouth once daily metoprolol succinate ER (TOPROL XL) 25 mg 24 hr tablet Take 1 tablet by mouth once daily. 30 tablet 5 08/19/2023 Active Comment on above: Take 1 tablet by mari th once daily. Milk of Magnesia (1 source) Start: 2 take 1 dose by mouth once daily at bedtime as needed for constipation Milk of Magnesia Dose = 30 mL, Oral, qHS, PRN Constipation, 0 Refill(s) Start Date: 02/09/22 Status: Ordered mirtazapine 7.5 mg oral tablet (20 sources) Start: 4 take 1 tablet by mouth once daily at bedtime Mirtazapine (REMERON) 7.5 mg tablet Take 1 tablet by mouth daily at bedtime. 30 tablet 5 03/20/2024 Active Start: 11-13-2022 End: 03-25-2023 take 1 tablet by mouth once daily at bedtime Mirtazapine (REMERON) 7.5 mg tablet Take 1 tablet by mouth daily at bedtime. 0 11/13/2022 03/25/2023 Discontinued Comment on above: Take 1 tablet by mari th daily at bedtime. pantoprazole 40 mg delayed release oral tablet (20 sources) Proton Pump Inhibitor Start: take 1 tablet by mouth once daily before breakfast pantoprazole DR (PROTONIX) 40 mg tablet Take 1 tablet by mouth daily before breakfast. Take on empty stomach, 1/2 hr before meal. 30 tablet 5 03/20/2024 Active Start: 05-13-2021 End: 02-15-2024 take 1 tablet by mouth once daily before breakfast pantoprazole DR (PROTONIX) 40 mg tablet Take 1 tablet by mouth daily before breakfast. Take on empty stomach, 1/2 hr before meal. 30 tablet 5 03/20/2024 Active Comment on above: Take 1 tablet by mari th every morning. Take 1 tablet by mari th daily before breakfast. Take on empty stomach, 1/2 hr before meal. perflutren lipid microspheres 1.3 mL in NaCl (PF) 0.9% 10 mL injection (DEFINITY) (20 sources) Start: 10-08-2021 End: 01-07-2023 perflutren lipid microspheres 1.3 mL in NaCl (PF) 0.9% 10 mL injection (DEFINITY) phenytoin 25 mg/ml oral suspension (20 sources) Anti-epileptic Agent Start: 03-20-2024 take 4 mL by mouth every eight hours phenytoin (DILANTIN) 125 mg/5 mL susp Take 4 mL by mouth every 8 hours. 237 mL 4 03/20/2024 Active Start: 09-26-2023 End: 10-12-2023 take 100 mg by mouth three times daily 100 mg, Oral, 3 times daily, First dose (after last modification) on 09/26/23 at 2100, Tube feeding interaction, obtain physician order to manage. Recommend holding TF for 1 hour before and 1 hour after dose. Start: 06-24-2023 End: 12-02-2023 take 4 mL by mouth every eight hours phenytoin (DILANTIN) 125 mg/5 mL susp Take 4 mL by mouth every 8 hours. 237 mL 4 09/27/2023 12/02/2023 Discontinued (Course of therapy completed) Start: 11-10-2022 End: 05-09-2023 take 12 mL by mouth every eight hours phenytoin (DILANTIN) 100 mg/4 mL susp Take 12 mL by mouth every 8 hours. 1080 mL 5 11/10/2022 Suspended Comment on above: Take 12 mL by mouth every 8 hours. Take 4 mL by mouth e very 8 hours. polyethylene glycol 3350 170 00 mg powder for oral solution (9 sources) Osmotic Laxative Start: 10-12-2023 End: 10-15-2023 Start: 10-07-2023 End: 10-12-2023 17 g, Per G Tube, 2 times da rayo, First dose (after last modification) on Wed10/07/23 at 2100, Indications: Constipation Start: 10-01-2023 End: 10-07-2023 17 g, Oral, 2 times daily, F irst dose (after last modification) on Wed10/01/23 at 2100, Indications: Constipation Start: 09-29-2023 End: 10-01-2023 17 g, Oral, Daily, First dos e (after last modification) on Wed09/29/23 at 1030, Indications: Constipation Start: 02-09-2022 MiraLax oral p owder for reconstitution Oral, qDay, PRN Constipation, 0 Refill(s) Start Date: 02/09/22 Status: Ordered microencapsulated potassium chloride 20 meq extended release oral tablet (20 sources) Start: 03-20-2024 take 1 tablet by mouth twice daily potassium chloride ER (KLOR-CON) 20 mEq tablet Take 1 tablet by mouth two times a day. 60 tablet 5 03/20/2024 Active Start: 02-09-2024 End: 02-13-2024 Start: 02-07-2024 End: 02-08-2024 Start: 02-06-2024 End: 02-06-2024 Start: 02-05-2024 End: 02-05-2024 Start: 02-04-2024 End: 02-04-2024 Start: 02-03-2024 End: 02-03-2024 Start: 02-03-2024 End: 02-03-2024 Start: 10-08-2023 End: 10-08-2023 40 mEq, Per G Tube, 2 times daily, First dose on Wed10/08/23 at 0900, For 2 doses, Dissolve each packet in 4 ounces of water = 5 mEq per 1 oz fluid. Start: 10-06-2023 End: 10-06-2023 take 1 [oz_av] by mouth once 40 mEq, Oral, Once, On 10/06/23 at 0845, For 1 dose, Dissolve each packet in 4 ounces of water = 5 mEq per 1 oz fluid., Indications: Hypokalemia Start: 10-04-2023 End: 10-05-2023 take 1 [oz_av] by mouth twice daily 40 mEq, Oral, 2 times daily, First dose on Wed10/05/23 at 0900, For 1 day, Dissolve each packet in 4 ounces of water = 5 mEq per 1 oz fluid., Indications: Hypokalemia Start: 10-02-2023 End: 10-02-2023 20 mEq, IntraVENous, at 50 m L/hr, Administer over 1 Hours, Every 1 hour, First dose on Wed10/02/23 at 0800, For 2 doses, Total dose: 40 mEq. Central line administration only. For central line administration only. Start: 09-29-2023 End: 09-30-2023 20 mEq, IntraVENous, at 50 m L/hr, Administer over 1 Hours, Every 1 hour, First dose on Wed09/30/23 at 0400, For 2 doses, Total dose: 40 mEq. Central line administration only. For central line administration only. Start: 10-16-2022 End: 03-18-2024 take 1 tablet by mouth twice daily potassium chloride ER (KLOR-CON) 20 mEq tablet Take 1 tablet by mouth two times a day. 60 tablet 5 09/03/2023 Active Comment on above: Take 1 tablet by mari twice daily. take one tablet by [facility] twice daily Take 1 tablet by mari two times a day. Take 20 mEq by mouth two times a day. predniSONE 10 mg oral tablet (5 sources) Start: 10-16-2022 End: 10-25-2022 predniSONE (DELTASONE) 10 mg tablet Start when current prednisone prescription has completed. 2 tabs daily for 3 days, then 1 tab daily for 3 days with food. 21 tablet 0 10/16/2022 10/25/2022 Active Comment on above: Start when current p rednisone prescription has completed. 2 tabs daily for 3 days, then 1 tab daily for 3 days with food. 10 actuat tiotropium 0.0025 mg/actuat inhalation spray (6 sources) Anticholinergic Start: 02-06-2024 End: 02-13-2025 End: 10-08-2023 Trelegy Ellipta 100 mcg-62.5 mcg-25 mcg/inh inhalation powder (1 source) Start: 02-09-2022 take 1 dose by mouth once daily Trelegy Ellipta 100 mcg-62.5 mcg-25 mcg/inh inhalation powder Dose = 1 puff(s), Inhalation, qDay, at the same time every day. Following administration, rinse mouth with water after use (do not swallow)., # 60 EA, 0 Refill(s) Start Date: 02/09/22 Status: Ordered zolpidem tartrate 10 mg oral tablet (20 sources) gamma-Aminobut yric Acid-ergic Agonist Start: 04-20-2024 End: 05-20-2024 take 1 tablet by mouth every 30 days at bedtime as needed zolpidem (AMBIEN) 10 mg Indications: Insomnia, unspecified type Take 1 tablet by mouth at bedtime as needed (insomnia) for up to 30 days. Patient should start on April 20, 2024. 30 tablet 04/20/2024 05/20/2024 Active Start: 02-11-2024 End: 02-13-2024 Start: 01-01-2024 End: 03-29-2024 take 1 tablet by mouth every 30 days at bedtime as needed zolpidem (AMBIEN) 10 mg Indications: Insomnia, unspecified type Take 1 tablet by mouth at bedtime as needed (insomnia) for up to 30 days. 30 tablet 02/28/2024 03/28/2024 Discontinued Start: 01-01-2024 End: 12-30-2023 take 1 tablet by mouth every 30 days at bedtime as needed zolpidem (AMBIEN) 10 mg Indications: Insomnia, unspecified type Take 1 tablet by mouth at bedtime as needed (insomnia) for up to 30 days. Do not start before January 01, 2024. 30 tablet 0 01/01/2024 12/30/2023 Discontinued Start: 01-01-2024 End: 12-30-2023 take 1 tablet by mouth every 30 days at bedtime as needed zolpidem (AMBIEN) 10 mg Indications: Insomnia, unspecified type Take 1 tablet by mouth at bedtime as needed (insomnia) for up to 30 days. Do not start before January 01, 2024. 30 tablet 0 01/01/2024 12/30/2023 Discontinued Start: 12-02-2023 End: 01-31-2024 take 1 tablet by mouth every 30 days at bedtime as needed zolpidem (AMBIEN) 10 mg Indications: Insomnia, unspecified type Take 1 tablet by mouth at bedtime as needed (insomnia) for up to 30 days. Do not start before January 01, 2024. 30 tablet 0 01/01/2024 01/31/2024 Active Start: 10-06-2023 End: 10-12-2023 take 10 mg by mouth once daily as needed for sleep 10 mg, Oral, Nightly PRN, sleep, Starting on Wed10/06/23 at 2335 Start: 05-06-2023 End: 06-03-2023 take 1.5 tablets by mouth at bedtime as needed zolpidem (AMBIEN) 5 mg tablet Indications: Insomnia, unspecified type Take 1.5 tablets by mouth at bedtime as needed for sedation for up to 28 days. 45 tablet 0 05/06/2023 06/03/2023 Active Start: 04-13-2023 End: 04-07-2023 take 1 tablet by mouth at bedtime as needed zolpidem (AMBIEN CR) 6.25 mg CR tablet Indications: Insomnia, unspecified type Take 1 tablet by mouth at bedtime as needed for up to 14 days. Do not start before April 13, 2023. 14 tablet 0 04/13/2023 04/07/2023 Discontinued Start: 04-13-2023 End: 04-27-2023 take 1 tablet by mouth at bedtime as needed zolpidem (AMBIEN CR) 6.25 mg CR tablet Indications: Insomnia, unspecified type Take 1 tablet by mouth at bedtime as needed for up to 14 days. Do not start before April 13, 2023. 14 tablet 0 04/13/2023 04/27/2023 Active Start: 03-16-2023 End: 05-11-2023 take 1 tablet by mouth at bedtime as needed zolpidem (AMBIEN) 5 mg tablet Indications: Insomnia, unspecified type Take 1 tablet by mouth at bedtime as needed for sedation for up to 28 days. Do not start before April 13, 2023. 28 tablet 0 04/13/2023 05/11/2023 Active Start: 02-05-2023 End: 03-07-2023 take 1 tablet by mouth every 30 days at bedtime as needed zolpidem (AMBIEN) 5 mg tablet Indications: Insomnia, unspecified type Take 1 tablet by mouth at bedtime as needed for sedation for up to 30 days. 30 tablet 1 02/05/2023 03/04/2023 Discontinued Start: 10-20-2022 End: 10-12-2023 take 0.5 tablet by mouth at bedtime as needed zolpidem (AMBIEN) 10 mg Indications: Insomnia, unspecified type Take 0.5 tablets by mouth at bedtime as needed (insomnia) for up to 90 days. 15 tablet 2 10/20/2022 11/13/2022 Discontinued (Adverse Reaction) Start: 02-09-2022 End: 02-16-2022 Ambien 5 mg oral tablet Dose : 5 mg = 1 tab(s), Oral, qHS, PRN Sleep, X 7 day(s), # 7 tab(s), 0 Refill(s), 02/16/22 8:48:00 EDT, Pharmacy: [id number], 160, cm, 01/27/22 19:40:00 EDT, Height, 60 Start Date: 02/09/22 Stop Date: 02/16/22 Status: Ordered Start: 01-19-2022 End: 01-27-2022 take 10 mg by mouth once daily at bedtime as needed for sleep 10 mg, Oral, DAILY AT BEDTIME NEEDED, Starting on 01/19/22 at 0819, Until Wed01/27/22 at 1901, Sleep Start: 07-01-2016 End: 10-10-2021 take 1 tablet by mouth every 30 days at bedtime as needed zolpidem (AMBIEN) 10 mg Indications: Insomnia, unspecified type Take 1 tablet by mouth at bedtime as needed (insomnia) for up to 30 days. 30 tablet 3 06/16/2021 10/10/2021 Discontinued Start: 03-29-1934 End: 01-14-2024 take 1 tablet by mouth at bedtime as needed zolpidem (AMBIEN) 10 mg Indications: Insomnia, unspecified type Take 1 tablet by mouth at bedtime as needed (insomnia) for up to 90 days. 30 tablet 0 10/16/2023 12/02/2023 Discontinued Comment on above: Take 1 tablet by mari th at bedtime as needed (insomnia) for up to 30 days. Take 1 tablet by mari th at bedtime as needed (insomnia) for up to 90 days. Take 0.5 tablets by mouth at bedtime as needed (insomnia) for up to 90 days. Take 1 tablet by mari th at bedtime as needed for sedation for up to 30 days. Take 1 tablet by mari th at bedtime as needed for sedation for up to 28 days. Do not start before March 16, 2023. Take 1 tablet by mari th at bedtime as needed for up to 14 days. Do not start before April 13, 2023. Take 1 tablet by mari th at bedtime as needed for sedation for up to 28 days. Do not start before April 13, 2023. Take 1.5 tablets by mouth at bedtime as needed for sedation for up to 28 days. Completed/Discontinued Medications Medication Drug Class(es) Dates Sig (Normalized) Sig (Original) acetaminophen 32 mg/ml oral solution (20 sources) Start: 09-26-2023 End: 10-12-2023 take 650 mg by mouth every eight hours as needed for pain 650 mg, Oral, Every 8 hours PRN, mild pain (1-3), or Temp >101F, Starting on 10/02/23 at 1019, Maximum dose of acetaminophen is 4000 mg from all sources in 24 hours. Start: 08-10-2023 take 2 tablets enter al route every four hours as needed acetaminophen (TYLENOL) 325 mg tablet 2 tablets by ORAL/FEEDING TUBE route every 4 hours as needed for pain. 08/10/2023 Active Comment on above: 2 tablets by ORAL/FE EDING TUBE route every 4 hours as needed for pain. 20 ml albumin human, assisted 250 mg/ml injection (20 sources) Human Serum Albumin Start: 10-04-2023 End: 10-07-2023 50 g, IntraVENous, at 120 mL/hr, Once, On Wed10/05/23 at 0500, For 1 dose, Infusion rate depends on indication and clinical situation. In emergencies, may administer as rapidly as necessary to improve clinical condition. After initial volume replacement: 25%: Do not exceed 1 mL/minute (60 mL/hr) in patients with normal plasma volume; 2 to 3 mL/minute (120 to 180 mL/hr) in patients with hypoproteinemia Start: 10-02-2023 End: 10-02-2023 50 g, IntraVENous, at 180 mL /hr, Once, On Wed10/02/23 at 0815, For 1 dose, Infusion rate depends on indication and clinical situation. In emergencies, may administer as rapidly as necessary to improve clinical condition. After initial volume replacement: 25%: Do not exceed 1 mL/minute (60 mL/hr) in patients with normal plasma volume; 2 to 3 mL/minute (120 to 180 mL/hr) in patients with hypoproteinemia Start: 09-30-2023 End: 09-30-2023 50 g, IntraVENous, at 60 mL/ hr, Once, On Wed09/30/23 at 0300, For 1 dose, Infusion rate depends on indication and clinical situation. In emergencies, may administer as rapidly as necessary to improve clinical condition. After initial volume replacement: 5%: Do not exceed 2 to 4 mL/minute in patients with normal plasma volume; 5 to 10 mL/minute in patients with hypoproteinemia 25%: Do not exceed 1 mL/minute in patients with normal plasma volume; 2 to 3 mL/minute in patients with hypoproteinemia Start: 09-29-2023 End: 09-29-2023 50 g, IntraVENous, at 180 mL /hr, Once, On Wed09/29/23 at 2230, For 1 dose, Infusion rate depends on indication and clinical situation. In emergencies, may administer as rapidly as necessary to improve clinical condition. After initial volume replacement: 25%: Do not exceed 1 mL/minute (60 mL/hr) in patients with normal plasma volume; 2 to 3 mL/minute (120 to 180 mL/hr) in patients with hypoproteinemia Start: 09-27-2023 End: 09-28-2023 50 g, IntraVENous, at 180 mL /hr, Once, On Wed09/28/23 at 0830, For 1 dose, Infusion rate depends on indication and clinical situation. In emergencies, may administer as rapidly as necessary to improve clinical condition. After initial volume replacement: 25%: Do not exceed 1 mL/minute (60 mL/hr) in patients with normal plasma volume; 2 to 3 mL/minute (120 to 180 mL/hr) in patients with hypoproteinemia aspirin 81 mg chewable tablet (20 sources) Platelet Aggregation Inhibitor, Nonsteroidal Anti-inflammatory Drug Start: 09-27-2023 End: 10-12-2024 Start: 12-06-2017 take 1 tablet by mari once daily ASPIR-LOW 81 mg EC tablet Take 1 tablet by mouth once daily. 30 tablet 2 12/06/2017 Suspended Comment on above: Take 1 tablet by mari once daily. Bacitracin / Neomycin / Polymyxin B (1 source) Start: 02-10-20 Neosporin topical ointment Apply 1 bacilio, Topical, BID, 0 Refill(s), Ointment, 60 Start Date: 02/09/22 Status: Ordered benzonatate 100 mg oral capsule (2 sources) Non-narcotic Antitussive Start: 01-29-20 End: 02-07-20 24 bisacodyl 10 mg rectal suppository (9 sources) Stimulant Laxative Start: 01-15-20 End: 10-12-19 take 10 mg rectal route every twenty-four hours as needed for constipation 10 mg, Rectal, Daily PRN, constipation, Starting on [place] 09/26/23 at 1509 budesonide 0.25 mg/ml inhalation suspension (10 sources) Corticosteroid Start: 08-05-19 End: 10-13-19 calcium chloride 0.0014 meq/ml / potassium chloride 0.004 meq/ml / sodium chloride 0.103 meq/ml / sodium lactate 0.028 meq/ml injectable solution (16 sources) Start: 02-05-20 End: 02-05-20 Start: 10-07-2023 End: 10-07-2023 500 mL, IntraVENous, at 250 mL/hr, Administer over 2 Hours, Once, On [place] 10/07/23 at 1545, For 1 dose Start: 10-02-2023 End: 10-02-2023 500 mL, IntraVENous, at 250 mL/hr, Administer over 2 Hours, Once, On [facility] 10/02/23 at 1145, For 1 dose Start: 09-29-2023 End: 09-29-2023 500 mL, IntraVENous, at 500 mL/hr, Administer over 1 Hours, Once, On Wed09/29/23 at 2230, For 1 dose Start: 09-26-2023 End: 09-27-2023 500 mL, IntraVENous, at 250 mL/hr, Administer over 2 Hours, Once, On Wed09/27/23 at 1200, For 1 dose carvedilol 12.5 mg oral tablet (20 sources) alpha-Adrenergic Indy, beta-Adrenergic Indy Start: 04-09-2021 End: 02-17-2022 take 1 tablet by mouth every twelve hours carvedilol (COREG) 12.5 mg tablet Take 1 tablet by mouth q 12 HR. 60 tablet 5 02/17/2022 Active Comment on above: Take 1 tablet by mouth q 12 HR. ceFAZolin 2000 mg injection (5 sources) Cephalosporin Antibacterial Start: 09-28-2023 End: 10-05-2023 take 2000 mg intravenously every eight hours 2,000 mg, IntraVENous, Administer over 30 Minutes, Every 8 hours, First dose (after last modification) on Wed10/04/23 at 1400, For 3 doses, premix bag, Suspected Indication (Select all that apply): Pneumonia (HAP) Start: 01-09-2022 End: 01-10-2022 take 2 g intravenously every eight hours 2 g, Intravenous, Administer over 30 Minutes, EVERY 8 HOURS NON-STANDARD, First dose on Wed01/09/22 at 0300, Until Discontinued chlorhexidine gluconate 1.2 mg/ml mouthwash (1 source) Start: 01-09-2022 End: 01-09-2022 take 15 mL by mouth every twelve hours 15 mL, Oral, EVERY 12 HOURS, First dose on Wed01/09/22 at 0700, Until Discontinued 100 ml dexmedetomidine 0.004 mg/ml injection (6 sources) Central alpha-2 Adrenergic Agonist Start: 01-29-2024 End: 02-01-2024 Start: 10-01-2023 End: 10-06-2023 0.1-0.6 mcg/kg/hr 72.1 kg (1 .8025-10.815 mL/hr, rounded to 1.8-10.82 mL/hr), IntraVENous, Continuous, Starting on Wed10/01/23 at 1415, If Titrate Infusion? is No : Disregard instructions below. If Titrate infusion? is Yes : Titrate in increments of 0.2 mcg/kg/hr no more frequently than every 30 minutes to goal of therapy. If after titration rate change patient exhibits adverse hemodynamic response, next titration rate change may be adjusted by one-half of the previous rate change. If patient fails sedation interruption, resume dexmedetomidine infusion at 50% of previous rate., Titrate Infusion? Yes, Initial Infusion Dose: 0.4 mcg/kg/hr, Goal of Therapy: RASS 0 to -1, Contact Provider if: New onset HR less than 50 bpm, New onset SBP less than 90 mmHg, Patient is receiving maximum dose and is not achieving the goal of therapy, On hold since Wed10/06/2023 at 0839 until manually unheld Start: 09-27-2023 End: 09-30-2023 0.1-0.6 mcg/kg/hr 72.2 kg (1 .805-10.83 mL/hr, rounded to 1.81-10.83 mL/hr), IntraVENous, Continuous, Starting on Wed09/27/23 at 1015, For 3 days 1 hour, If Titrate Infusion? is No : Disregard instructions below. If Titrate infusion? is Yes : Titrate in increments of 0.2 mcg/kg/hr no more frequently than every 30 minutes to goal of therapy. If after titration rate change patient exhibits adverse hemodynamic response, next titration rate change may be adjusted by one-half of the previous rate change. If patient fails sedation interruption, resume dexmedetomidine infusion at 50% of previous rate., Titrate Infusion? Yes, Initial Infusion Dose: 0.2 mcg/kg/hr, Goal of Therapy: RASS 0 to -1, Contact Provider if: New onset HR less than 50 bpm, New onset SBP less than 90 mmHg, Patient is receiving maximum dose and is not achieving the goal of therapy Drug or medicament (substance) (6 sources) Start: 10-05-2023 End: 10-12-2023 apply 1 dose topically every eight hours Topical, Every 8 hours, First dose on Wed10/05/23 at 1245 Start: 10-05-2023 End: 10-12-2023 Topical, As needed, dry skin , Starting on Wed10/05/23 at 1232 Start: 01-21-2022 End: 01-22-2022 take 2 g intravenously every eight hours 2 g, Intravenous, Administer over 30 Minutes, EVERY 8 HOURS NON-STANDARD, 3 doses, First dose on Wed01/21/22 at 1400, Last dose on Wed01/22/22 at 0600 Start: 01-21-2022 End: 01-21-2022 1 Application, Nasal, 60 MIN PRE-OP, 1 dose, On Wed01/21/22 at 0800 (1) Use a tissue to clean the inside of both nostrils including the inside tip of the nostril. (2) Tilting the bottle slightly, dip one swab into solution and stir vigorously for 10 seconds. Withdraw the swab slowly to avoid wiping solution off during removal. (3) Insert swab comfortably into one nostril and rotate for 15 seconds covering all surfaces. Then focus on the inside tip of nostril and rotate for an additional 15 seconds. (4) Using a new swab, repeat steps 2 & 3 with the other nostril. (5) Repeat the application in both nostrils using a fresh swab each time. (6) Do not blow nose. If solution drips out of nose, it can be lightly dabbed with a tissue. 0.4 ml enoxaparin sodium 100 mg/ml prefilled syringe (9 sources) Low Molecular Weight Heparin Start: 09-26-2023 End: 02-13-2024 Start: 01-11-2022 End: 01-27-2022 inject 40 mg by subcutaneous injection every twenty-four hours 40 mg, Subcutaneous, EVERY 24 HOURS, First dose on Wed01/11/22 at 1600, Until Discontinued DO NOT ADMINISTER ON DAY OF SURGERY/INVASIVE PROCEDURE UNLESS OTHERWISE DIRECTED. Indications: DVT/PE prophylaxis 20 ml etomidate 2 mg/ml injection (4 sources) General Anesthetic Start: 10-03-2023 End: 10-03-2023 IntraVENous, Code/trauma/sedation medication, Starting on Wed10/03/23 at 1009 Start: 09-28-2023 End: 09-28-2023 IntraVENous, Code/trauma/sed ation medication, Starting on Wed09/28/23 at 1159 famotidine 20 mg oral tablet (2 sources) Histamine-2 Receptor Antagonist Start: 02-06-2024 End: 02-13-2024 2 ml fentaNYL 0.05 mg/ml injection (9 sources) Opioid Agonist Start: 10-03-2023 End: 10-03-2023 take 1 dose by mouth every hour 50 mcg, IntraVENous, Once, On Wed10/03/23 at 1045, For 1 dose, If oral and IV narcotics ordered, use oral first and only use IV if oral is ineffective or cannot take oral. Do Not give oral and IV within 1 hour of each other unless specifically ordered. Start: 09-27-2023 End: 10-01-2023 take 50 ug by mouth every hour as needed for pain 50 mcg, IntraVENous, Every 1 hour PRN, severe pain (7-10), or vent dysynchrony, Starting on Wed09/28/23 at 1245, If oral and IV narcotics ordered, use oral first and only use IV if oral is ineffective or cannot take oral. Do Not give oral and IV within 1 hour of each other unless specifically ordered. Start: 09-27-2023 End: 09-27-2023 take 1 dose by mouth every hour 50 mcg, IntraVENous, O nce, On Wed09/27/23 at 1215, For 1 dose, If oral and IV narcotics ordered, use oral first and only use IV if oral is ineffective or cannot take oral. Do Not give oral and IV within 1 hour of each other unless specifically ordered. Start: 01-08-2022 End: 01-08-2022 100 mcg, Intravenous, Admini ster over 2 Minutes, ONCE, 1 dose, On [place] 01/08/22 at 1515 glycerin 3 mg/ml / propylene glycol 10 mg/ml ophthalmic solution (8 sources) Non-Standardized Chemical Allergen Start: 09-27-2023 End: 10-12-2023 1 drop, Both Eyes, Daily, First dose on Wed09/27/23 at 2015 Start: 09-26-2023 End: 01-28-2024 guaiFENesin 20 mg/ml oral solution (2 sources) Start: 02-07-2024 End: 02-13-2024 take 200 mg by mouth every four hours as needed for cough hydrogen peroxide 30 mg/ml topical spray (2 sources) Start: 08-04-2022 End: 10-12-2023 1 ml HYDROmorphone hydrochloride 1 mg/ml cartridge (3 sources) Opioid Agonist Start: 10-10-2023 End: 10-12-2023 take 0.5 mg intravenously every four hours as needed for pain 0.5 mg, IntraVENous, Every 4 hours PRN, severe pain (7-10), Starting on Wed10/10/23 at 1435, If oral and IV narcotics ordered, use oral first and only use IV if oral is ineffective or cannot take oral. Do Not give oral and IV within 1 hour of each other unless specifically ordered. Start: 01-21-2022 End: 01-21-2022 0.2 mg, Intravenous, EVERY 5 MINUTES NEEDED, Starting on Wed01/21/22 at 1045, Until Wed01/21/22 at 1145, Moderate Pain, Severe Pain Use as initial dose. Higher dose may be administered if lower dose did not result in adverse effects (RR<10, decrease in level of consciousness) and was previously documented as ineffective. May give a total of 4mg in PACU. Recovery lansoprazole 30 mg disintegrating oral tablet (2 sources) Proton Pump Inhibitor Start: 10-08-2023 End: 10-12-2023 30 mg, Nasogastric, Daily before breakfast, First dose on Wed10/08/23 at 0600, For NG tube administration, place tablet in oral syringe, draw up 10 mL water, and administer within 15 minutes of dissolving. Refill syringe with 5mL water, shake gently, and use to flush the NG tube. Do not crush or break. levalbuterol 0.417 mg/ml inhalation solution (4 sources) beta2-Adrenergic Agonist Start: 01-30-2024 End: 01-30-2024 Start: 08-04-2022 End: 10-08-2023 100 ml levETIRAcetam 5 mg/ml injection (12 sources) Start: 01-28-2024 End: 02-01-2024 Start: 10-06-2023 End: 10-11-2024 Start: 09-26-2023 End: 04-03-2024 1,000 mg, IntraVENous, Admin ister over 15 Minutes, 2 times daily, First dose on 09/26/23 at 2100 10 ml lidocaine hydrochloride 10 mg/ml injection (1 source) Antiarrhythmic, Amide Local Anesthetic Start: 01-10-2022 End: 01-10-2022 10 mL, Other, ONCE, 1 dose, On 01/10/22 at 2015 LORazepam 0.5 mg oral tablet (12 sources) Benzodiazepine Start: 10-08-2023 End: 10-08-2023 take 0.5 mg by mouth once 0.5 mg, Oral, Once, On Wed10/08/23 at 0300, For 1 dose Start: 10-03-2023 End: 10-03-2023 0.5 mg, IntraVENous, Once, O n 10/03/23 at 0945, For 1 dose, For IV doses dilute dose with 1ml NS. Start: 10-03-2023 End: 10-03-2023 0.5 mg, IntraVENous, Once, O n 10/03/23 at 0945, For 1 dose, For IV doses dilute dose with 1ml NS. Start: 10-02-2023 End: 10-02-2023 0.5 mg, IntraVENous, Once, O n 10/02/23 at 1700, For 1 dose, For IV doses dilute dose with 1ml NS. Start: 10-02-2023 End: 10-02-2023 0.5 mg, IntraVENous, Once, O n 10/02/23 at 1700, For 1 dose, For IV doses dilute dose with 1ml NS. Start: 09-28-2023 End: 09-28-2023 0.5 mg, IntraVENous, Once, O n 09/28/23 at 0400, For 1 dose, For IV doses dilute dose with 1ml NS. Start: 08-04-2022 End: 10-08-2023 take 0.5 mg by mouth every eight hours as needed for anxiety 0.5 mg, Oral, Every 8 hours PRN, anxiety, Starting on 09/27/23 at 1718 losartan potassium 25 mg oral tablet (20 sources) Angiotensin 2 Receptor Indy Start: 07-17-2021 End: 10-08-2023 Comment on above: Take 1 tablet by mari once daily. 50 ml magnesium sulfate 40 mg/ml injection (5 sources) Start: 09-29-2023 End: 09-29-2023 2,000 mg, IntraVENous, at 25 mL/hr, Administer over 2 Hours, Once, On Wed09/29/23 at 0700, For 1 dose, Recommended infusion rate not to exceed 1,000 mg (milligrams) per hour. Start: 09-27-2023 End: 09-27-2023 2,000 mg, IntraVENous, at 25 mL/hr, Administer over 2 Hours, Once, On Wed09/27/23 at 1045, For 1 dose, Recommended infusion rate not to exceed 1,000 mg (milligrams) per hour. Start: 01-09-2022 End: 01-10-2022 4 g, Intravenous, Administer over 4 Hours, ADMINISTER DIRECTED, Starting on Wed01/09/22 at 0132, Until 01/10/22 at 1637, Other, ICU Magnesium Replacement Parameters Administer 4 grams once if magnesium level is less than or equal to 2.0 mg/dL. If replacing potassium also, replete magnesium prior to KCl administration. EXCLUDE less than 45 kg, SCr greater than or equal to 2 mg/dL, CrCl less than 30 ml/min, ESRD, and renal replacement therapy melatonin 3 mg oral tablet (6 sources) Start: 01-29-2024 End: 02-13-2024 Start: 10-06-2023 End: 10-12-2023 take 5 mg by mouth once daily as needed for sleep 5 mg, Oral, Nightly PRN, sleep, Starting on Wed10/06/23 at 2018, 1st line Start: 02-09-2022 melatonin 3 mg oral tablet Dose : 3 mg = 1 tab(s), Oral, qHS, PRN Sleep, 0 Refill(s) Start Date: 02/09/22 Status: Ordered Start: 01-16-2022 End: 01-27-2022 take 3 mg by mouth once daily at bedtime 3 mg, Oral, DAILY AT BEDTIME, First dose on Wed01/16/22 at 2100, Until Discontinued meloxicam 15 mg oral tablet (20 sources) Nonsteroidal Anti-inflammatory Drug Start: 05-06-2023 take 1 tablet by mouth once daily at mealtime meloxicam (MOBIC) 15 mg tablet Take 1 tablet by mouth once daily. With food. 30 tablet 3 05/06/2023 Suspended Start: 04-04-2023 take 1 tablet by mari th once daily at mealtime meloxicam (MOBIC) 15 mg tablet Take 1 tablet by mouth once daily. With food. 28 tablet 1 04/04/2023 Active Start: 12-10-2022 End: 02-15-2023 take 1 tablet by mouth once daily at mealtime meloxicam (MOBIC) 15 mg tablet Take 1 tablet by mouth once daily. With food. 30 tablet 1 02/15/2023 Active Start: 10-20-2022 End: 11-03-2022 take 1 tablet by mouth once daily for pain meloxicam (MOBIC) 15 mg tablet Take 1 tablet by mouth once daily. for pain. Take with food. 30 tablet 1 10/20/2022 11/03/2022 Discontinued Comment on above: Take 1 tablet by mari th once daily. for pain. Take with food. Take 1 tablet by mari th once daily. With food. methylPREDNISolone 40 mg inj ection (10 sources) Corticosteroid Start: 01-30-2024 End: 02-03-2024 Start: 10-03-2023 End: 10-04-2023 40 mg, IntraVENous, Every 24 hours, First dose (after last modification) on Wed10/03/23 at 1200 Start: 10-02-2023 End: 10-02-2023 60 mg, IntraVENous, Every 24 hours, First dose (after last modification) on Wed10/02/23 at 1115 Start: 09-28-2023 End: 10-01-2023 take 60 mg intravenously every twelve hours 60 mg, IntraVENous, Every 12 hours, First dose (after last modification) on Wed09/28/23 at 1230 Start: 09-26-2023 End: 09-28-2023 40 mg, IntraVENous, Every 24 hours, First dose on Wed09/26/23 at 1715 2 ml midazolam 1 mg/ml injection (9 sources) Benzodiazepine Start: 01-30-2024 End: 02-04-2024 take 1 mg intravenously every four hours as needed for anxiety Start: 09-28-2023 End: 09-28-2023 4 mg, IntraVENous, Once, On Wed09/28/23 at 1500, For 1 dose Start: 09-28-2023 End: 09-28-2023 4 mg, IntraVENous, Once, On Wed09/28/23 at 1500, For 1 dose Start: 09-28-2023 End: 09-28-2023 4 mg, IntraVENous, Once, On Wed09/28/23 at 1300, For 1 dose Start: 09-28-2023 End: 09-28-2023 4 mg, IntraVENous, Once, On Wed09/28/23 at 1300, For 1 dose Start: 09-27-2023 End: 09-27-2023 2 mg, IntraVENous, Once, On Wed09/27/23 at 2215, For 1 dose Start: 01-08-2022 End: 01-08-2022 2 mg, Intravenous, ONCE, 1 d ose, On Sara 01/08/22 at 1515 1 ml morphine sulfate 4 mg/ml cartridge (2 sources) Opioid Agonist Start: 10-05-2023 End: 10-05-2023 take 1 dose by mouth every hour 2 mg, IntraVENous, Once, On Wed10/05/23 at 0245, For 1 dose, If oral and IV narcotics ordered, use oral first and only use IV if oral is ineffective or cannot take oral. Do Not give oral and IV within 1 hour of each other unless specifically ordered. Start: 10-05-2023 End: 10-05-2023 take 1 dose by mouth every hour 2 mg, IntraVENous, Once, On Wed10/05/23 at 0245, For 1 dose, If oral and IV narcotics ordered, use oral first and only use IV if oral is ineffective or cannot take oral. Do Not give oral and IV within 1 hour of each other unless specifically ordered. mupirocin 0.02 mg/mg topical ointment (5 sources) RNA Synthetase Inhibitor Antibacterial Start: 01-28-2024 End: 02-02-2024 Start: 03-03-2022 End: 03-13-2022 mupirocin (BACTROBAN) 2 % oi ntment Indications: S/P craniotomy Apply 1 application to affected area three times daily for 10 days. 22 g 1 03/03/2022 03/13/2022 Active Comment on above: Apply 1 application to affected area three times daily for 10 days. 1 ml naloxone hydrochloride 0.4 mg/ml injection (2 sources) Opioid Antagonist Start: 09-28-2023 End: 10-12-2023 0.4 mg, IntraVENous, Every 5 min PRN, opioid reversal, respiratory depression, Starting on Wed09/28/23 at 0647, +++ For RR <10, pinpoint pupils, over sedation for opioid reversal - MUST notify collections rep provider immediately after first dose, may give IM or SQ if no IV access +++ oxyCODONE hydrochloride 5 mg oral tablet (8 sources) Opioid Agonist Start: 02-12-2024 End: 02-12-2024 Start: 10-08-2023 End: 10-15-2023 Start: 02-09-2022 End: 02-14-2022 oxyCODONE 5 mg oral tablet ( IMMEDIATE release ) Dose : 5 mg = 1 tab(s), Oral, q6hr, PRN Pain, X 5 day(s), # 10 tab(s), 0 Refill(s), 02/14/22 8:46:00 EDT, Pharmacy: [id number], Subdural hematoma, 160, cm, 01/27/22 19:40:00 EDT, Height, 60 Start Date: 02/09/22 Stop Date: 02/14/22 Status: Ordered Start: 01-27-2022 End: 02-01-2022 polyvinyl alcohol 0.014 ml/ml ophthalmic solution (2 sources) Start: 08-04-2022 End: 10-12-2023 polyvinyl alcohol 0.014 ml/ml / povidone 6 mg/ml ophthalmic solution (1 source) Start: 01-15-2022 End: 01-27-2022 1 drop, Both Eyes, NEEDED, Starting on Sara 01/15/22 at 1824, Until Wed01/27/22 at 1901, Dry Eyes Patient may self-administer. 1000 ml potassium chloride 0.02 meq/ml / sodium chloride 9 mg/ml injection (1 source) Start: 01-09-2022 End: 01-10-2022 Intravenous, at 75 mL/hr, CONTINUOUS, Starting on Wed01/09/22 at 0145, Until 01/10/22 at 1438 100 ml propofol 10 mg/ml injection (12 sources) General Anesthetic Start: 01-30-2024 End: 01-30-2024 Start: 10-05-2023 End: 10-06-2023 5-50 mcg/kg/min 77.4 kg (2.322-23.22 mL/hr, rounded to 2.32-23.22 mL/hr), IntraVENous, Continuous, Starting on Wed10/05/23 at 2300, If Titrate Infusion? is No : Disregard instructions below. If Titrate infusion? is Yes : Titrate in increments of 5 mcg/kg/min no more frequently than every 5 minutes to goal of therapy. If after titration rate change patient exhibits adverse hemodynamic response, next titration rate change may be adjusted by one-half of the previous rate change. If patient fails sedation interruption, resume propofol infusion at 50% of previous rate. General Anesthetic - do not give without appropriate ventilation support. Do not administer propofol in same IV catheter as blood or plasma. Discard any unused portion of propofol vials and tubing after 12 hours., Titrate Infusion? Yes, Initial Infusion Rate: 20 mcg/kg/min, Goal of Therapy: RASS 0 to -1, Contact Provider if: New onset HR less than 50 bpm, New onset SBP less than 90 mmHg, Triglycerides greater than 500 mg/dL, Patient is receiving maximum dose and is not achieving the goal of therapy Start: 10-05-2023 End: 10-05-2023 Starting on Wed10/05/23 at 21 22, For 1 dose, Willy Eli: connorinet override General Anesthetic - do not give without appropriate ventilation support. Start: 09-26-2023 End: 09-27-2023 5-50 mcg/kg/min 68.2 kg (2.046-20.46 mL/hr, rounded to 2.05-20.46 mL/hr), IntraVENous, Continuous, Starting on Wed09/26/23 at 1515, If Titrate Infusion? is No : Disregard instructions below. If Titrate infusion? is Yes : Titrate in increments of 5 mcg/kg/min no more frequently than every 5 minutes to goal of therapy. If after titration rate change patient exhibits adverse hemodynamic response, next titration rate change may be adjusted by one-half of the previous rate change. If patient fails sedation interruption, resume propofol infusion at 50% of previous rate. General Anesthetic - do not give without appropriate ventilation support. Do not administer propofol in same IV catheter as blood or plasma. Discard any unused portion of propofol vials and tubing after 12 hours., Titrate Infusion? Yes, Initial Infusion Rate: 20 mcg/kg/min, Goal of Therapy: RASS 0 to -1, Contact Provider if: New onset HR less than 50 bpm, New onset SBP less than 90 mmHg, Triglycerides greater than 500 mg/dL, Patient is receiving maximum dose and is not achieving the goal of therapy Start: 09-26-2023 End: 09-26-2023 take 1 dose intravenously every twelve hours Starting on 09/26/23 at 1423, For 1 dose, Marissa Frey: cabinet override General Anesthetic - do not give without appropriate ventilation support. Do not administer propofol in same IV catheter as blood or plasma. Discard any unused portion of propofol vials and tubing after 12 hours. Start: 01-08-2022 End: 01-09-2022 1 dose, Starting on Wed at 2351, Until Wed01/09/22 at 0200 Created by cabinet override Extravasation Risk Recovery QUEtiapine 50 mg oral tablet (20 sources) Atypical Antipsychotic Start: 10-12-2023 End: 01-28-2024 Start: 10-08-2023 End: 10-12-2023 50 mg, Per G Tube, Daily, Fi rst dose (after last modification) on Wed10/08/23 at 0900 Start: 10-07-2023 End: 10-09-2023 100 mg, Per G Tube, Nightly, First dose (after last modification) on Wed10/07/23 at 2100 Start: 10-06-2023 End: 10-07-2023 take 100 mg by mouth once daily 100 mg, Oral, Nightly, First dose (after last modification) on Wed10/06/23 at 2100 Start: 10-03-2023 End: 10-07-2023 take 50 mg by mouth once daily 50 mg, Oral, Daily, Fir st dose (after last modification) on Wed10/05/23 at 0600 Start: 10-03-2023 End: 10-04-2023 take 25 mg by mouth once daily 25 mg, Oral, Daily, Fir st dose (after last modification) on Wed10/03/23 at 1530 Start: 09-30-2023 End: 10-03-2023 take 25 mg by mouth twice daily 25 mg, Oral, 2 times daily, First dose (after last modification) on Wed09/30/23 at 0745 Start: 01-14-2022 End: 01-27-2022 rocuronium bromide 10 mg/ml injectable solution (4 sources) Nondepolarizing Neuromuscular Indy Start: 10-03-2023 End: 10-03-2023 IntraVENous, Code/trauma/sedation medication, Starting on Wed10/03/23 at 1010 Start: 09-28-2023 End: 09-28-2023 IntraVENous, Code/trauma/sed ation medication, Starting on Wed09/28/23 at 1200 rOPINIRole 1 mg oral tablet (20 sources) Nonergot Dopamine Agonist Start: 10-20-2022 End: 01-28-2024 Comment on above: Take 1 tablet by mari daily at bedtime. sennosides, assisted 1.76 mg/ml o ral solution (12 sources) Start: 10-12-2023 End: 01-28-2024 Start: 10-07-2023 End: 10-12-2023 10 mL, Per G Tube, 2 times d aily, First dose (after last modification) on Wed10/07/23 at 2100 Start: 10-01-2023 End: 10-07-2023 take 10 mL by mouth twice daily 10 mL, Oral, 2 times daily, First dose on Wed10/01/23 at 0830 Start: 02-09-2022 senna (sennosi tobi) 8.6 mg oral tablet Dose : 8.6 mg = 1 tab(s), Oral, qDay, 0 Refill(s) Start Date: 02/09/22 Status: Ordered Start: 01-27-2022 End: 10-12-2023 5 ml sodium chloride 9 mg/ml injection (20 sources) Start: 01-29-2024 End: 02-12-2024 take 5-40 mL intraluminal route every eight hours Start: 01-29-2024 End: 01-29-2024 Start: 09-26-2023 End: 10-12-2023 250 mL/hr, IntraVENous, Admi nister over 10 Minutes, As needed, For use in priming line prior to transfusion (prime via gravity) and flush line post transfusion, Starting on Wed10/05/23 at 0646, For 1 dose, For use in priming line prior to transfusion (prime via gravity) and flush line post transfusion ONLY. Discontinue once line has been cleared of remaining blood product. Start: 01-21-2022 End: 01-22-2022 Intravenous, at 75 mL/hr, CO NTINUOUS, Starting on Wed01/21/22 at 0000, Until Wed01/22/22 at 1835 Start: 01-08-2022 End: 01-08-2022 1-100 mL, Intravenous, ONCE NEEDED, 1 dose, Starting on Wed01/08/22 at 1509, Until Wed01/08/22 at 1510, Flush, CT Procedure Start: 01-08-2022 End: 01-09-2022 Intravenous, at 75 mL/hr, CO NTINUOUS, Starting on Wed01/08/22 at 1445, Until Wed01/09/22 at 0133 Start: 10-08-2021 End: 01-07-2023 sodium chloride 0.9 % (flush ) 10 mL (BD POSIFLUSH) spironolactone 25 mg oral tablet (20 sources) Aldosterone Antagonist Start: 12-06-2017 End: 08-19-2022 spironolactone (ALDACTONE) 25 mg tablet TAKE 1 TABLET EVERY DAY 30 tablet 2 12/06/2017 08/19/2022 Discontinued Comment on above: TAKE 1 TABLET EVERY DAY thiamine 100 mg oral tablet (2 sources) Start: 10-07-2023 End: 10-12-2023 100 mg, Per PEG Tube, Daily, First dose on Wed10/07/23 at 2100 traZODone hydrochloride 50 mg oral tablet (2 sources) Serotonin Reuptake Inhibitor Start: 02-04-2024 End: 02-13-2024 7 actuat umeclidinium 0.0625 mg/actuat dry powder inhaler (20 sources) Anticholinergic Start: 03-15-2017 End: 11-13-2022 take 1 puff(s) by inhalation twice daily INCRUSE ELLIPTA 62.5 mcg/actuation inhaler Inhale 1 Puff as instructed twice daily. 1 Each 3 08/19/2022 11/13/2022 Discontinued (Discontinued by another Health Care Provider) Comment on above: Inhale 1 Puff as ins tructed twice daily. 200 ml vancomycin 5 mg/ml injection (2 sources) Glycopeptide Antibacterial Start: 01-29-2024 End: 01-30-2024 take 1000 mg intravenously every twelve hours witch hung 500 mg/ml medicated pad (1 source) Start: 01-20-2022 End: 01-27-2022 1 Application, Topical, NEEDED, Starting on Wed01/20/22 at 1436, Until Wed01/27/22 at 1901, Other, hemorrhoids Patient may self-administer (1 source) Start: 01-20-2022 End: 01-20-2022 take 1 dose by mouth once 50 mL, Oral, ONCE, 1 dose, On Wed01/20/22 at 1515, Radiology Procedure (5 sources) Start: 01-16-2022 End: 01-27-2022 90 mL/hr, Nasogastric, Administer over 16 Hours, DAILY AT BEDTIME, First dose (after last modification) on Wed01/16/22 at 2100, Until Discontinued Start: 01-14-2022 End: 01-16-2022 10-60 mL/hr, Nasogastric, CO NTINUOUS, Starting on Wed01/14/22 at 0815, Until Wed01/16/22 at 1721 Start: 01-11-2022 End: 01-14-2022 10-60 mL/hr, Nasogastric, CO NTINUOUS, Starting on Wed01/11/22 at 0845, Until Wed01/14/22 at 0731 Start: 01-10-2022 End: 01-11-2022 10-50 mL/hr, Nasogastric, CO NTINUOUS, Starting on 01/10/22 at 2130, Until 01/11/22 at 0843 Start: 01-10-2022 End: 01-10-2022 10-50 mL/hr, Nasogastric, CO NTINUOUS, Starting on 01/10/22 at 1630, Until 01/10/22 at 2117 (20 sources) Start: 02-07-2024 End: 02-13-2024 Start: 02-03-2024 End: 02-06-2024 Start: 01-29-2024 End: 02-13-2024 take 650 mg by mouth every four hours as needed for pain [Order 1 Start] Name: acetaminophen (Tylenol) tablet 650 mg Signed Summary: 650 mg, Oral, Every 4 hours PRN, mild pain (1-3), Starting on 01/29/24 at 0859, If inadequate response within 60 minutes, proceed to next-line agent for same PRN reason or contact provider if no further options ordered. [Order 1 End] [Order 2 Start] Name: Acetaminophen (Tylenol) 650 MG/20.3ML solution 650 mg Signed Summary: 650 mg, Oral, Every 4 hours PRN, mild pain (1-3), Starting on 01/29/24 at 0859, Give oral liquid if patient prefers or per feeding tube if present. If inadequate response within 60 minutes, proceed to next-line agent for same PRN reason or contact provider if no further options ordered. [Order 2 End] [Order 3 Start] Name: acetaminophen (Tylenol) suppository 650 mg Signed Summary: 650 mg, Rectal, Every 4 hours PRN, mild pain (1-3), Starting on 01/29/24 at 0859, Give NV if unable to administer by mouth or feeding tube. If inadequate response within 60 minutes, proceed to next-line agent for same PRN reason or contact provider if no further options ordered. [Order 3 End] Start: 01-29-2024 End: 02-04-2024 take 2000 mg intravenously every eight hours Start: 01-28-2024 End: 01-28-2024 Start: 10-03-2023 End: 10-05-2023 0.05-2 mg/kg/hr 50.1 kg Idea l weight (1.2525-50.1 mL/hr, rounded to 1.25-50.1 mL/hr), IntraVENous, Continuous, Starting on 10/03/23 at 1030, If Titrate Infusion? is No : Disregard instructions below. If Titrate infusion? is Yes : May titrate in 0.05 mg/kg/hour increments, to goal RASS or BIS up to a maximum of 2.5 mg/kg/hour. Maximum dose of 250 mg per hour. General Anesthetic - do not give without appropriate ventilation support., Titrate infusion? Yes, Initial Infusion Dose: Other, Other (mg/kg/hr): 0.5mg/kg/hr, Titrate in increments of: 0.05 mg/kg/hr, Titrate no faster than: Every 15 minutes, Goal of Therapy is: RASS 0 to -1, Contact Provider if: SBP greater than 160 mmHg Start: 09-30-2023 End: 09-30-2023 20 mmol, IntraVENous, at 62. 5 mL/hr, Administer over 240 Minutes, Once, On Sara 09/30/23 at 0330, For 1 dose Start: 09-29-2023 End: 10-02-2023 0.05-2 mg/kg/hr 50.1 kg Idea l weight (1.2525-50.1 mL/hr, rounded to 1.25-50.1 mL/hr), IntraVENous, Continuous, Starting on Wed09/29/23 at 1500, If Titrate Infusion? is No : Disregard instructions below. If Titrate infusion? is Yes : May titrate in 0.05 mg/kg/hour increments, to goal RASS or BIS up to a maximum of 2.5 mg/kg/hour. Maximum dose of 250 mg per hour. General Anesthetic - do not give without appropriate ventilation support., Titrate infusion? Yes, Initial Infusion Dose: 0.2 mg/kg/hr, Titrate in increments of: 0.05 mg/kg/hr, Titrate no faster than: Every 15 minutes, Goal of Therapy is: RASS 0 to -1, Contact Provider if: SBP greater than 160 mmHg, HR greater than 120 BPM Start: 09-28-2023 End: 09-28-2023 0-10 mL, IntraVENous, IMG on ce PRN, other, Suboptimal echo image, Starting on Wed09/28/23 at 1000, For 1 dose, CV Procedural Medications, Administer via slow IVP for suboptimal echocardiogram enhancement. May administer as divided doses to reach optimal image enhancement Start: 09-28-2023 End: 09-28-2023 1,000 mg, IntraVENous, at 10 0 mL/hr, Administer over 30 Minutes, Every 24 hours, First dose on Wed09/28/23 at 0800, Mini-Bag Plus bag, Suspected Indication (Select all that apply): Pneumonia (HAP) Start: 09-27-2023 End: 10-07-2023 take 40 mg by mouth once daily 40 mg, IntraVENous, Adm inister over 2 Minutes, Nightly, First dose (after last modification) on Wed09/27/23 at 2100, Give only if unable to tolerate po. Start: 09-27-2023 End: 09-27-2023 30 mmol, IntraVENous, at 55. 6 mL/hr, Administer over 270 Minutes, Once, On Wed09/27/23 at 1130, For 1 dose Start: 09-27-2023 End: 09-28-2023 take 2000 mg intravenously every eight hours 2,000 mg, IntraVENous, at 12.5 mL/hr, Administer over 4 Hours, Every 8 hours, First dose on Wed09/27/23 at 0900, Mini-Bag Plus bag, Suspected Indication (Select all that apply): Pneumonia (HAP) Start: 09-26-2023 End: 10-07-2023 100 mg, IntraVENous, at 200 mL/hr, Administer over 30 Minutes, Every 24 hours, First dose on Wed09/26/23 at 1900, Protect from light. Start: 09-26-2023 End: 10-12-2023 take 4 mg by mouth every eight hours as needed for nausea and vomiting [Order 1 Start] Name: ondansetron ODT (Zofran-ODT) disintegrating tablet 4 mg Signed Summary: 4 mg, Oral, Every 8 hours PRN, nausea, vomiting, Starting on 09/26/23 at 1509, 1st Line. If inadequate response within 60 minutes, proceed to next-line agent or contact provider if no further options ordered. Patient should allow tablet to dissolve on tongue. Do not remove from blister pack until just before administering. [Order 1 End] [Order 2 Start] Name: ondansetron (Zofran) injection 4 mg Signed Summary: 4 mg, IntraVENous, Every 6 hours PRN, nausea, vomiting, Starting on 09/26/23 at 1509, 1st Line. Give IV if patient is unable to take orally. If inadequate response within 60 minutes, proceed to next-line agent or contact provider if no further options ordered. [Order 2 End] Start: 01-15-2022 End: 01-27-2022 take 650 mg by mouth every four hours as needed [Order 1 Start] Name: acetaminophen (TYLENOL) tablet 650 mg Signed Summary: 650 mg, Oral, EVERY 4 HOURS NEEDED, Starting on Wed01/15/22 at 1450, Until Wed01/27/22 at 1901, Mild Pain, Other, Moderate Pain, Severe Pain, Oral temp > 99.5 F Maximum dose of acetaminophen is 4000 mg from all sources in 24 hours. [Order 1 End] [Order 2 Start] Name: acetaminophen (TYLENOL) tablet 650 mg Signed Summary: 650 mg, Per NG tube, EVERY 4 HOURS NEEDED, Starting on Wed01/15/22 at 1450, Until Wed01/27/22 at 1901, Mild Pain, Other, Moderate Pain, Severe Pain, Oral temp > 99.5 F Maximum dose of acetaminophen is 4000 mg from all sources in 24 hours. [Order 2 End] Start: 01-15-2022 End: 01-27-2022 [Order 1 Start] Name: senna (SENOKOT) tablet 8.6 mg Signed Summary: 8.6 mg, Oral, DAILY, First dose (after last modification) on Wed01/15/22 at 0900, Until Discontinued [Order 1 End] [Order 2 Start] Name: senna (SENOKOT) tablet 8.6 mg Signed Summary: 8.6 mg, Per NG tube, DAILY, First dose (after last modification) on Wed01/15/22 at 0900, Until Discontinued [Order 2 End] Start: 01-14-2022 End: 01-27-2022 take 4 mg intravenously every six hours as needed [Order 1 Start] Name: ondansetron 4mg/2ml (ZOFRAN) injection 4 mg Signed Summary: 4 mg, Intravenous, EVERY 6 HOURS NEEDED, Starting on Wed01/14/22 at 0806, Until Wed01/27/22 at 1901, Nausea / Vomiting [Order 1 End] [Order 2 Start] Name: ondansetron (ZOFRAN) tablet 4 mg Signed Summary: 4 mg, Per NG tube, EVERY 6 HOURS NEEDED, Starting on Wed01/14/22 at 0806, Until Wed01/27/22 at 1901, Nausea / Vomiting [Order 2 End] Start: 01-09-2022 End: 01-14-2022 Start: 01-09-2022 End: 01-09-2022 28 mcg (rounded from 27.76 m cg = 0.4 mcg/kg 69.4 kg Order-specific weight), Intravenous, at 134 mL/hr, Administer over 30 Minutes, ONCE, 1 dose, On Wed01/09/22 at 0345 Give over 15-30 minutes Start: 01-09-2022 End: 01-27-2022 [Order 1 Start] Name: polyet hylene glycol (MIRALAX) packet 17 g Signed Summary: 17 g, Oral, DAILY NEEDED, Starting on Wed01/09/22 at 0132, Until Wed01/27/22 at 1901, Constipation If No Bowel Movement in 48 Hours [Order 1 End] [Order 2 Start] Name: polyethylene glycol (MIRALAX) packet 17 g Signed Summary: 17 g, Per NG tube, DAILY NEEDED, Starting on Wed01/09/22 at 013, Until Wed01/27/22 at 1901, Constipation If No Bowel Movement in 48 Hours [Order 2 End] Start: 01-09-2022 End: 01-27-2022 take 10 mg intravenously every hour as needed [Order 1 Start] Name: hydrALAZINE (APRESOLINE) injection 10 mg Signed Summary: 10 mg, Intravenous, EVERY 1 HOUR NEEDED, [...] did not result in adverse effects (HR>90) [Order 1 End] [Order 2 Start] Name: hydrALAZINE (APRESOLINE) injection 20 mg Signed Summary: 20 mg, Intravenous, EVERY 1 HOUR NEEDED, [...] no PRN used in previous 3 hours [Order 2 End] Start: 01-09-2022 End: 01-27-2022 take 10 mg intravenously every hour as needed [Order 1 Start] Name: labetalol (NORMODYNE) injection 10 mg Signed Summary: 10 mg, Intravenous, EVERY 1 HOUR NEEDED, Starting on Wed01/09/22 at 013, Until Wed01/27/22 at 1901, SBP > 140 [...] VIAL. Discard remaining contents after one use. [Order 1 End] [Order 2 Start] Name: labetalol (NORMODYNE) injection 20 mg Signed Summary: 20 mg, Intravenous, EVERY 1 HOUR NEEDED, Starting on Wed01/09/22 at 013, Until Wed01/27/22 at 1901, SBP > 140 [...] VIAL. Discard remaining contents after one use. [Order 2 End] Start: 01-09-2022 End: 01-27-2022 take 0.5 mg intravenously every three hours as needed [Order 1 Start] Name: HYDROmorphone (DILAUDID) injection 0.5 mg Signed Summary: 0.5 mg, Intravenous, EVERY 3 HOURS NEEDED, Starting on Wed01/09/22 at 0132, Until Wed01/27/22 at 1901, Severe Pain Use as initial dose. Higher dose may be administered if lower dose was previously documented as ineffective and did not result in adverse effects (RR<10, decrease in level of consciousness). [Order 1 End] [Order 2 Start] Name: HYDROmorphone (DILAUDID) injection 1 mg Signed Summary: 1 mg, Intravenous, EVERY 3 HOURS NEEDED, Starting on Wed01/09/22 at 0132, Until Wed01/27/22 at 1901, Severe Pain Higher dose may be administered if lower dose was previously documented as ineffective and did not result in adverse effects (RR<10, decrease in level of consciousness). Decrease back to lower dose if patient has adverse effects, or no PRN used in previous 12 hours. [Order 2 End] Start: 01-09-2022 End: 01-27-2022 take 5 mg by mouth every four hours as needed [Order 1 Start] Name: oxyCODONE (ROXICODONE) tablet 5 mg Signed Summary: 5 mg, Oral, EVERY 4 HOURS NEEDED, Starting on Wed01/09/22 at 0132, Until Wed01/27/22 at 1901, Moderate Pain May also be crushed and added to water for patient unable to tolerate oral tab. [Order 1 End] [Order 2 Start] Name: oxyCODONE (ROXICODONE) tablet 5 mg Signed Summary: 5 mg, Per NG tube, EVERY 4 HOURS NEEDED, Starting on Wed01/09/22 at 0132, Until Wed01/27/22 at 1901, Moderate Pain May be crushed and added to water for administration via NG tube. [Order 2 End] (1 source) Start: 01-08-2022 End: 01-08-2022 75 mL, Intravenous, ONCE, 1 dose, On Sara 01/08/22 at [address] Procedure (20 sources) Start: 01-29-2024 End: 02-01-2024 Start: 01-29-2024 End: 01-29-2024 Start: 10-05-2023 End: 10-05-2023 1-100 mcg/min (0.9375-93.75 mL/hr, rounded to 0.94-93.75 mL/hr), IntraVENous, Continuous, Starting on Wed10/05/23 at 0715, Infuse via central line. If Titrate Infusion? is No : Disregard instructions below. If Titrate infusion? is Yes : If rate LESS than 10 mcg/min: Titrate by 2 mcg/min no faster than every 5 minutes to goal. If rate GREATER than or equal to 10 mcg/min: Titrate by 5 mcg/min no faster than every 5 minutes to goal. When approaching therapeutic goal or weaning off, smaller titration increments of 1 mcg/min no faster than every 5 minutes may be used to maintain goal., Titrate Infusion? Yes, Initial Infusion Dose: 5 mcg/min, Goal of Therapy is: Other MAP goal, Goal MAP greater than: 60, Contact Provider if: Patient is receiving the maximum dose and is not achieving the goal of therapy Start: 10-05-2023 End: 10-05-2023 1-100 mcg/min (0.9375-93.75 mL/hr, rounded to 0.94-93.75 mL/hr), IntraVENous, Continuous, Starting on Wed10/05/23 at 0700, Infuse via central line. If Titrate Infusion? is No : Disregard instructions below. If Titrate infusion? is Yes : If rate LESS than 10 mcg/min: Titrate by 2 mcg/min no faster than every 5 minutes to goal. If rate GREATER than or equal to 10 mcg/min: Titrate by 5 mcg/min no faster than every 5 minutes to goal. When approaching therapeutic goal or weaning off, smaller titration increments of 1 mcg/min no faster than every 5 minutes may be used to maintain goal., Titrate Infusion? Yes, Initial Infusion Dose: 5 mcg/min, Goal of Therapy is: MAP greater than 65 mmHg, Contact Provider if: Patient is receiving the maximum dose and is not achieving the goal of therapy Start: 10-02-2023 End: 10-04-2023 1-100 mcg/min (0.9375-93.75 mL/hr, rounded to 0.94-93.75 mL/hr), IntraVENous, Continuous, Starting on Wed10/02/23 at 0815, Infuse via central line. If Titrate Infusion? is No : Disregard instructions below. If Titrate infusion? is Yes : If rate LESS than 10 mcg/min: Titrate by 2 mcg/min no faster than every 5 minutes to goal. If rate GREATER than or equal to 10 mcg/min: Titrate by 5 mcg/min no faster than every 5 minutes to goal. When approaching therapeutic goal or weaning off, smaller titration increments of 1 mcg/min no faster than every 5 minutes may be used to maintain goal., Titrate Infusion? Yes, Initial Infusion Dose: 5 mcg/min, Goal of Therapy is: MAP greater than 65 mmHg, Contact Provider if: Patient is receiving the maximum dose and is not achieving the goal of therapy Start: 09-30-2023 End: 10-02-2023 1-100 mcg/min (0.9375-93.75 mL/hr, rounded to 0.94-93.75 mL/hr), IntraVENous, Continuous, Starting on Wed09/30/23 at 0315, Infuse via central line. If Titrate Infusion? is No : Disregard instructions below. If Titrate infusion? is Yes : If rate LESS than 10 mcg/min: Titrate by 2 mcg/min no faster than every 5 minutes to goal. If rate GREATER than or equal to 10 mcg/min: Titrate by 5 mcg/min no faster than every 5 minutes to goal. When approaching therapeutic goal or weaning off, smaller titration increments of 1 mcg/min no faster than every 5 minutes may be used to maintain goal., Titrate Infusion? Yes, Initial Infusion Dose: 5 mcg/min, Goal of Therapy is: Other SBP goal, Goal SBP greater than: 100, Contact Provider if: Patient is receiving the maximum dose and is not achieving the goal of therapy Start: 09-29-2023 End: 09-30-2023 1-100 mcg/min (0.9375-93.75 mL/hr, rounded to 0.94-93.75 mL/hr), IntraVENous, Continuous, Starting on Wed09/29/23 at 2330, Infuse via central line. If Titrate Infusion? is No : Disregard instructions below. If Titrate infusion? is Yes : If rate LESS than 10 mcg/min: Titrate by 2 mcg/min no faster than every 5 minutes to goal. If rate GREATER than or equal to 10 mcg/min: Titrate by 5 mcg/min no faster than every 5 minutes to goal. When approaching therapeutic goal or weaning off, smaller titration increments of 1 mcg/min no faster than every 5 minutes may be used to maintain goal., Titrate Infusion? Yes, Initial Infusion Dose: 5 mcg/min, Goal of Therapy is: MAP greater than 65 mmHg, Contact Provider if: Patient is receiving the maximum dose and is not achieving the goal of therapy Start: 09-27-2023 End: 09-29-2023 1-20 mcg/min (0.9375-18.75 m L/hr, rounded to 0.94-18.75 mL/hr), IntraVENous, Continuous, Starting on 09/27/23 at 1430, Infuse via central line. If Titrate Infusion? is No : Disregard instructions below. If Titrate infusion? is Yes : If rate LESS than 10 mcg/min: Titrate by 2 mcg/min no faster than every 5 minutes to goal. If rate GREATER than or equal to 10 mcg/min: Titrate by 5 mcg/min no faster than every 5 minutes to goal. When approaching therapeutic goal or weaning off, smaller titration increments of 1 mcg/min no faster than every 5 minutes may be used to maintain goal., Titrate Infusion? Yes, Initial Infusion Dose: 5 mcg/min, Goal of Therapy is: MAP greater than 65 mmHg, Contact Provider if: Patient is receiving the maximum dose and is not achieving the goal of therapy Start: 09-26-2023 End: 09-27-2023 1-100 mcg/min (0.9375-93.75 mL/hr, rounded to 0.94-93.75 mL/hr), IntraVENous, Continuous, Starting on Wed09/26/23 at 1515, Infuse via central line. If Titrate Infusion? is No : Disregard instructions below. If Titrate infusion? is Yes : If rate LESS than 10 mcg/min: Titrate by 2 mcg/min no faster than every 5 minutes to goal. If rate GREATER than or equal to 10 mcg/min: Titrate by 5 mcg/min no faster than every 5 minutes to goal. When approaching therapeutic goal or weaning off, smaller titration increments of 1 mcg/min no faster than every 5 minutes may be used to maintain goal., Titrate Infusion? Yes, Initial Infusion Dose: 5 mcg/min, Goal of Therapy is: MAP greater than 65 mmHg, Contact Provider if: Patient is receiving the maximum dose and is not achieving the goal of therapy Start: 09-26-2023 End: 09-26-2023 Starting on 09/26/23 at 1 423, For 1 dose, Marissa Frey: cabinet override (2 sources) Start: 09-28-2023 End: 09-30-2023 1-6 mg/hr (1-6 mL/hr), IntraVENous, Continuous, Starting on Wed09/28/23 at 1445, If Titrate Infusion? is No : Disregard instructions below. If Titrate infusion? is Yes : Titrate in increments of 1 mg/hr no more frequently than every 30 minutes to goal of therapy. If patient fails sedation interruption, resume infusion at 50% of previous dose. premix bag, Titrate Infusion? Yes, Initial Infusion Dose: 2 mg/hr, Goal of Therapy is: RASS 0 to -1, Contact Provider if: New onset SBP less than 90 mmHg, Patient is receiving the maximum dose and is not achieving the goal of therapy (2 sources) Start: 09-27-2023 End: 09-27-2023 take 7 mL intravenously once as needed 7 mL, IntraVENous, IMG once PRN, contrast, Starting on Wed09/27/23 at 2220, For 1 dose (8 sources) Start: 01-31-2024 End: 02-04-2024 Start: 01-31-2024 End: 01-31-2024 Start: 09-28-2023 End: 09-28-2023 take 1250 mg intravenously every twelve hours 1,250 mg, IntraVENous, Administer over 90 Minutes, Every 12 hours, First dose on Wed09/27/23 at 2200, premix bag, Suspected Indication (Select all that apply): Pneumonia (HAP) Start: 09-27-2023 End: 09-27-2023 1,500 mg (rounded from 1,444 mg = 20 mg/kg 72.2 kg), IntraVENous, Administer over 120 Minutes, Once, On Wed09/27/23 at 1000, For 1 dose, premix bag, Suspected Indication (Select all that apply): Pneumonia (HAP) (2 sources) Start: 09-27-2023 End: 09-27-2023 take 75 mL intravenously once as needed 75 mL, IntraVENous, IMG once PRN, contrast, Starting on Wed09/27/23 at 0025, For 1 dose (2 sources) Start: 01-29-2024 End: 02-01-2024 (2 sources) Start: 01-29-2024 End: 01-29-2024 Problems Active Problems Problem Classification Problem Date Documented Da te Episodic/Chronic Acute and unspecified renal failure (1 source) Acute injury of kidney; Translations: [Acute kidney failure, unspecified] Episodic Acute myocardial infarction (6 sources) Non-ST elevation (NSTEMI) myocardial infarction; Translations: [Myocardial infarction] Onset: 7 04-16-2022 Chronic Administrative/social admission (2 sources) Needs assistance at home; Translations: [Need for assistance with personal care] Episodic Alcohol-related disorders (9 sources) Alcohol dependence, uncomplicated; Translations: [Alcohol abuse] Onset: 7 Chronic Anxiety disorders (20 sources) Anxiety; Translations: [Anxiety disorder, unspecified] Onset: 3 07-01-2016 Chronic Cancer of breast (20 sources) Carcinoma in situ of breast; Translations: [Unspecified type of carcinoma in situ of unspecified breast] Onset: 8 11-29-2007 Chronic Chronic obstructive pulmonary disease and bronchiectasis (20 sources) Chronic obstructive pulmonary disease, unspecified; Translations: [Chronic obstructive lung disease] Onset: 6 Resolved: 6 07-01-2016 Chronic Complications of surgical procedures or medical care (2 sources) Wound pain ; Translations: [Other postprocedural complications of skin and subcutaneous tissue] Episodic Congestive heart failure; nonhypertensive (20 sources) Acute systolic (congestive) heart failure; Translations: [Congestive heart failure] Onset: 7 Chronic Coronary atherosclerosis and other heart disease (2 sources) Atherosclerotic heart disease of hoopa coronary artery without angina pectoris; Translations: [Athscl heart disease of hoopa coronary artery w/o ang pctrs] Onset: 7 Chronic Deficiency and other anemia (7 sources) Anemia; Translations: [Anemia, unspecified] Onset: 2 Episodic Disorders of lipid metabolism (3 sources) Mixed hyperlipidemia; Translations: [Mixed hyperlipidemia] Chronic Epilepsy; convulsions (8 sources) Status epilepticus; Translations: [Epilepsy, unspecified, not intractable, with status epilepticus] Onset: 4 01-28-2024 Chronic Essential hypertension (5 sources) Essential (primary) hypertension; Translations: [Essential hypertension] Onset: 7 Chronic Intestinal obstruction without hernia (1 source) Fecal impaction; Translations: [Fecal impaction] Episodic Intracranial injury (20 sources) Hematoma of subdural space of neuraxis; Translations: [Traumatic subdural hemorrhage with loss of consciousness of unspecified duration, initial encounter] Onset: 2 Episodic Malaise and fatigue (2 sources) Malaise; Translations: [Other malaise] Episodic Nutritional deficiencies (20 sources) Undernutrition; Translations: [Mild protein-calorie malnutrition] Onset: 3 Chronic Other aftercare (2 sources) Patient encounter status; Translations: [Other snf (current) drug therapy] Episodic Other aftercare (1 source) Surgical follow-up; Translations: [Encounter for surgical aftercare following surgery on the nervous system] Episodic Other aftercare (1 source) Long-term current use of drug therapy; Translations: [Other salvage determiner (current) drug therapy] Episodic Other aftercare (3 sources) Post-discharge follow-up; Translations: [Encounter for follow-up examination after completed treatment for conditions other than malignant neoplasm] Episodic Other aftercare (1 source) Polypharmacy ; Translations: [Other snf (current) drug therapy] 01-26-2024 Episodic Other aftercare (1 source) Long-term current use of benzodiazepine; Translations: [Other salvage determiner (current) drug therapy] 04-25-2024 Episodic Other aftercare (1 source) Encounter for follow-up examination after completed treatment for conditions other than malignant neoplasm; Translations: [Hospital discharge follow-up] Onset: 4 Episodic Other and ill-defined cerebrovascular disease (2 sources) Posterior reversible encephalopathy syndrome; Translations: [Posterior reversible encephalopathy syndrome] Onset: 7 Chronic Other and ill-defined cerebrovascular disease (4 sources) Posterior reversible encephalopathy syndrome; Translations: [Posterior reversible encephalopathy syndrome] Onset: 7 04-16-2022 Chronic Other and ill-defined heart disease (1 source) Cardiomegaly; Translations: [Cardiomegaly] Chronic Other and ill-defined heart disease (1 source) Diastolic dysfunction; Translations: [Other ill-defined heart diseases] Chronic Other circulatory disease (2 sources) History of transient ischemic attack; Translations: [Personal history of transient ischemic attack (TIA), and cerebral infarction without residual deficits] Onset: 2 Episodic Other circulatory disease (2 sources) History of cerebrovascular accident; Translations: [Personal history of transient ischemic attack (TIA), and cerebral infarction without residual deficits] 01-28-2022 Episodic Other circulatory disease (1 source) History of subdural hematoma; Translations: [Personal history of other diseases of the circulatory system] Episodic Other circulatory disease (5 sources) Low blood pressure; Translations: [Hypotension, unspecified] 08-17-2023 Episodic Other connective tissue disease (1 source) Weakness of face muscles; Translations: [Facial weakness] Episodic Other connective tissue disease (1 source) Weakness of right leg; Translations: [Other symptoms and signs involving the musculoskeletal system] Episodic Other connective tissue disease (1 source) Recurrent falls ; Translations: [Repeated falls] 01-26-2024 Episodic Other connective tissue disease (2 sources) Pain in right lower limb; Translations: [Pain in right leg] 02-17-2024 Episodic Other connective tissue disease (1 source) Pain in lower limb; Translations: [Pain in right leg] 02-23-2024 Episodic Other connective tissue disease (2 sources) Pain in right leg; Translations: [Chronic pain of right lower extremity] Onset: 4 Episodic Other fractures (2 sources) Closed fracture of seventh cervical vertebra; Translations: [Unspecified nondisplaced fracture of seventh cervical vertebra, sequela] Episodic Other fractures (1 source) Fracture of twelfth thoracic vertebra; Translations: [Wedge compression fracture of T11-T12 vertebra, sequela] Episodic Other gastrointestinal disorders (1 source) Device status; Translations: [Other artificial openings of gastrointestinal tract status] Chronic Other gastrointestinal disorders (2 sources) Gastrostomy present; Translations: [Gastrostomy status] 12-02-2023 Chronic Other gastrointestinal disorders (1 source) Gastrostomy status; Translations: [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)] Onset: 4 Chronic Other hereditary and degenerative nervous system conditions (4 sources) Restless legs; Translations: [Restless legs syndrome] Chronic Other hereditary and degenerative nervous system conditions (1 source) Restless legs syndrome; Translations: [Restless legs] Onset: 4 Chronic Other injuries and conditions due to external causes (1 source) History of fall; Translations: [History of falling] 08-17-2023 Episodic Other liver diseases (2 sources) Elevated liver enzymes level; Translations: [Abnormal levels of other serum enzymes] Episodic Other nervous system disorders (4 sources) Cerebral edema; Translations: [Aphasia] Onset: 7 Chronic Other nervous system disorders (4 sources) Disorder of brain; Translations: [Encephalopathy, unspecified] Onset: 7 04-16-2022 Chronic Other nervous system disorders (1 source) Other chronic pain; Translations: [Chronic pain of right lower extremity] Onset: 4 Chronic Other nervous system disorders (1 source) Abnormal gait; Translations: [Unspecified abnormalities of gait and mobility] Episodic Other nervous system disorders (1 source) Impaired cognition; Translations: [Other symptoms and signs involving cognitive functions and awareness] Episodic Other nervous system disorders (1 source) Numbness of lower limb ; Translations: [Anesthesia of skin] Episodic Other upper respiratory disease (20 sources) Tracheostomy present; Translations: [Tracheostomy status] Onset: 4 12-02-2023 Chronic Maame-; endo-; and myocarditis; cardiomyopathy (1 source) Other cardiomyopathies Onset: 8 Chronic Pulmonary heart disease (20 sources) Chronic cor pulmonale; Translations: [Pulmonary heart disease, unspecified] Onset: 6 Resolved: 3 03-11-2017 Chronic Residual codes; unclassified (1 source) Sleep apnea; Translations: [Sleep apnea, unspecified] Chronic Residual codes; unclassified (2 sources) Edema of foot; Translations: [Localized edema] Episodic Residual codes; unclassified (1 source) Procedure not done; Translations: [Procedure and treatment not carried out, unspecified reason] Episodic Residual codes; unclassified (2 sources) Postoperative state; Translations: [Other specified postprocedural states] Onset: 2 Episodic Residual codes; unclassified (1 source) Past history of procedure; Translations: [Other specified postprocedural states] Onset: 2 Episodic Residual codes; unclassified (1 source) FH: Cardiovascular disease; Translations: [Family history of ischemic heart disease and other diseases of the circulatory system] Episodic Residual codes; unclassified (1 source) History of surgical procedure on trachea; Translations: [Other specified postprocedural states] Episodic Residual codes; unclassified (2 sources) History of clinical finding in subject; Translations: [Personal history of other medical treatment] Episodic Residual codes; unclassified (1 source) Generalized aches and pains; Translations: [Pain, unspecified] Episodic Residual codes; unclassified (1 source) Confusional state; Translations: [Disorientation, unspecified] 09-23-2023 Episodic Respiratory failure; insufficiency; arrest (adult) (20 sources) Dependence on supplemental oxygen; Translations: [Dependence on supplemental oxygen] Onset: 3 Chronic Screening or history of mental health and substance abuse (3 sources) Personal history of nicotine dependence; Translations: [Ex-smoker] Onset: 7 04-25-2024 Episodic Spondylosis; intervertebral disc disorders; other back problems (1 source) Low back pain; Translations: [Midline low back pain, unspecified chronicity, unspecified whether sciatica present] Episodic Sprains and strains (3 sources) Neck sprain; Translations: [Sprain of joints and ligaments of unspecified parts of neck, initial encounter] Onset: 2 Episodic Unclassified (1 source) Unknown / UNK(Unknown) Onset: 8 Unclassified (2 sources) Cerebral infarction due to unspecified occlusion or stenosis of bilateral cerebellar arteries; Translations: [Cereb infrc due to unsp occls or stenosis of bi cereblr art] Onset: 7 Unclassified (1 source) Acute subdural hematoma (HCC); Translations: [Acute subdural hematoma (HCC)] Onset: 3 Urinary tract infections (1 source) Urinary tract infectious disease; Translations: [Urinary tract infection, site not specified] Episodic Past or Other Problems Problem Classification Problem Date Documented Da te Episodic/Chronic Acute cerebrovascular disease (20 sources) Cerebral infarction, unspecified; Translations: [Nontraumatic intracerebral hemorrhage in cerebellum] Onset: 02-10-2017 Resolved: 01-03-2024 01-28-2022 Chronic Allergic reactions (20 sources) Radiation-induced dermatosis; Translations: [Other skin changes due to chronic exposure to nonionizing radiation] Onset: 12-19-2008 Resolved: 01-03-2024 12-19-2008 Episodic Blindness and vision defects (2 sources) Heteronymous bilateral field defects; Translations: [Heteronymous bilateral field defects] Onset: 02-10-2017 Episodic Complication of device; implant or graft (4 sources) Pain finding at anatomical site; Translations: [Pain due to other internal prosthetic devices, implants and grafts, initial encounter] Onset: 09-26-2023 10-12-2023 Episodic Deficiency and other anemia (1 source) Anemia, unspecified; Translations: [Anemia, unspecified type] Onset: 05-06-2023 Episodic Diabetes mellitus without complication (1 source) Other abnormal glucose; Translations: [Elevated glucose] Onset: 05-06-2023 Episodic E Codes: Fall (20 sources) Fall; Translations: [Unspecified fall, initial encounter] Onset: 09-07-2021 Resolved: 01-03-2024 Episodic Epilepsy; convulsions (20 sources) Neurological finding; Translations: [Unspecified convulsions] Onset: 11-03-2022 Resolved: 01-03-2024 Episodic Fluid and electrolyte disorders (20 sources) Hypokalemia; Translations: [Hypervolemia] Onset: 02-10-2017 Resolved: 08-10-2023 Episodic Gastrointestinal hemorrhage (6 sources) Hematemesis; Translations: [Gastrointestinal hemorrhage] Onset: 02-10-2017 04-16-2022 Episodic Open wounds of head; neck; and trunk (20 sources) Scalp laceration; Translations: [Laceration without foreign body of scalp, initial encounter] Onset: 09-07-2021 Resolved: 01-03-2024 Episodic Other and unspecified benign neoplasm (20 sources) Benign neoplasm of colon; Translations: [Benign neoplasm of colon, unspecified] Onset: 06-09-2006 06-09-2006 Episodic Other circulatory disease (3 sources) Hypotension, unspecified; Translations: [Hypotension, unspecified] Onset: 08-17-2023 Episodic Other gastrointestinal disorders (2 sources) Dysphagia, unspecified; Translations: [Dysphagia, unspecified] Onset: 02-10-2017 Episodic Other gastrointestinal disorders (20 sources) Feces contents abnormal; Translations: [Other fecal abnormalities] Onset: 06-09-2006 Resolved: 01-03-2024 06-09-2006 Episodic Other gastrointestinal disorders (4 sources) History of hematemesis; Translations: [Personal history of other diseases of the digestive system] Onset: 02-10-2017 04-16-2022 Episodic Other injuries and conditions due to external causes (1 source) History of falling; Translations: [Status post fall] Onset: 08-17-2023 Episodic Other lower respiratory disease (2 sources) Other abnormalities of breathing; Translations: [Other abnormalities of breathing] Onset: 02-10-2017 Episodic Other lower respiratory disease (20 sources) Cough; Translations: [Cough] Onset: 04-01-2006 Resolved: 05-03-2006 05-03-2006 Episodic Other non-traumatic joint disorders (20 sources) Soft tissue lesion of shoulder region; Translations: [Other specified joint disorders, unspecified shoulder] Onset: 09-14-2007 09-14-2007 Episodic Other nutritional; endocrine; and metabolic disorders (20 sources) Hypophosphatemia; Translations: [Other disorders of phosphorus metabolism] Onset: 08-07-2023 Resolved: 08-10-2023 08-10-2023 Chronic Other nutritional; endocrine; and metabolic disorders (20 sources) Hypomagnesemia; Translations: [Hypomagnesemia] Onset: 08-07-2023 Resolved: 08-10-2023 08-10-2023 Chronic Other screening for suspected conditions (not mental disorders or infectious disease) (20 sources) Blood chemistry abnormal; Translations: [Other specified abnormal findings of blood chemistry] Onset: 05-03-2006 05-03-2006 Episodic Other skin disorders (20 sources) Inflamed seborrheic keratosis; Translations: [Inflamed seborrheic keratosis] Onset: 12-19-2008 Resolved: 01-03-2024 12-19-2008 Episodic Other skin disorders (20 sources) Disorder of skin pigmentation; Translations: [Disorder of pigmentation, unspecified] Onset: 12-19-2008 Resolved: 01-03-2024 12-19-2008 Episodic Other skin disorders (20 sources) Seborrheic keratosis; Translations: [Other seborrheic keratosis] Onset: 12-19-2008 Resolved: 01-03-2024 12-19-2008 Episodic Other skin disorders (20 sources) Disorder of skin; Translations: [Hypertrophic disorder of the skin, unspecified] Onset: 12-19-2008 Resolved: 01-03-2024 12-19-2008 Episodic Other upper respiratory infections (1 source) Acute upper respiratory infection, unspecified; Translations: [Viral URI] Onset: 07-14-2023 Episodic Phlebitis; thrombophlebitis and thromboembolism (20 sources) Acute embolism and thrombosis of unspecified deep veins of right distal lower extremity; Translations: [Acute deep vein thrombosis of lower limb] Onset: 02-10-2017 Resolved: 01-03-2024 Episodic Pneumonia (except that caused by tuberculosis or sexually transmitted disease) (20 sources) Viral pneumonia; Translations: [Viral pneumonia, unspecified] Resolved: 05-03-2006 05-03-2006 Episodic Residual codes; unclassified (20 sources) Insomnia; Translations: [Insomnia, unspecified] Onset: 02-18-2013 02-18-2013 Episodic Respiratory failure; insufficiency; arrest (adult) (20 sources) Respiratory failure, unspecified, unspecified whether with hypoxia or hypercapnia; Translations: [Acute respiratory acidosis] Onset: 08-04-2022 Resolved: 01-03-2024 08-10-2023 Episodic Unclassified (2 sources) Insomnia, unspecified; Translations: [Insomnia, unspecified] Onset: 02-10-2017 Episodic Viral infection (20 sources) Verruca vulgaris; Translations: [Viral wart, unspecified] Onset: 12-19-2008 Resolved: 01-03-2024 12-19-2008 Episodic Results Test Name Value Interpretation Reference Range Facility CNOV 04-25-2024 CNOV Office Visit ([facility] ) YOVANNYLUIZA ROGERS ([id number]) 1955 F Date Time Provider Department 04/25/24 3:15 PM PEPPER FLANNERY [facility] During your visit today, we recorded the following information about you: Pulse Respiration Blood pressure Weight 91/minute 14/minute 107/60 59 kg Linda Sharma LPN 04/25/2024 2:28 PM Signed Intake information documented in the prior visit with Dr. Franco today. Pepper Flannery MD 04/25/2024 4:58 PM Signed . Respiratory [place] Note Patient name: Luiza May PCP: Maryam Franco MD Referring Physician: CC: COPD HPI: Luiza May 68 year old female former 18 pack year smoker, quitting in 2005 with PMH significant for severe COPD (no recent PFTs, patient currently has tracheostomy tube), chronic hypoxemic respiratory failure, breast cancer, SDH, hemorrhagic stroke, HTN, combined systolic and diastolic heart failure, seizures, alcohol abuse, severe TIO previously on BiPAP, more recently NIV last seen in [facility] pulmonary clinic in 2006. Her respiratory history is notable for recurrent hypercapnic and hypoxemic respiratory failure due to noncompliance with NIV status post tracheostomy tube x 4. Patient has received all of her care outside [facility] so complete medical records are not available. Her most recent history is notable for respiratory failure in the spring of this past year, initially admitted to [facility] with seizure requiring intubation. She was transferred to [place] 09/25-10/11 with COPD exacerbation, MSSA PNA and volume overload. Failed extubation x 2. There were concerns for possible vocal cord dysfunction due to her baseline severe anxiety disorder. Required stay in LTAC 10/11-11/10, able to be weaned from vent, still has tracheostomy tube in place and is on 3 L continuous oxygen. She presents today for management of her COPD and tracheostomy care. Apparently local ENT physician refused to manage her tracheostomy tube since he did not perform the procedure. I personally do not manage tracheostomy tubes as well. Apparently her trach became dislodged yesterday and she had it replaced by the emergency department physician and [place] with difficulty. She had a #6 flexible Shiley but now has a #4 flexible Shiley. Her brother who is the caregiver for her tracheostomy tube is requesting new supplies for the smaller size trach. From a respiratory standpoint she has dyspnea with exertion. She has chronic cough with mucus production, wheezing. No chest pain. She uses Trelegy and DuoNeb 4 times a day. She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 0.0 - 0.5 10*3/uL [facility] Eosinophils/100 WBC (Bld) 0.8 % 0.0 - 6.0 % [facility] Erythrocyte distribution width (RBC) [Ratio] 15.9 % High 11.5 - 15.0 % [facility] Hematocrit (Bld) [Volume fraction] 35.3 % 35.0 - 47.0 % [facility] Hemoglobin (Bld) [Mass/Vol] 10.7 g/dL Low 11.7 - 16.0 g/dL [facility] Immature granulocytes (Bld) [#/Vol] 0.1 10*3/uL High NINF - 0.1 10*3/uL [facility] Immature granulocytes/100 WBC (Bld) 1.0 % 0.0 - 2.0 % [facility] Interpretation and review of laboratory results Abnormal [facility] Lymphocytes (Bld) [#/Vol] 2.5 10*3/uL 1.0 - 4.3 10*3/uL [facility] Lymphocytes/100 WBC (Bld) 16.8 % 15.0 - 45.0 % [facility] MCH (RBC) [Entitic mass] 27.0 pg 26.0 - 34.0 pg [facility] MCHC (RBC) [Mass/Vol] 30.3 % Low 30.5 - 36.0 % [facility] MCV (RBC) [Entitic vol] 89.1 fL 77.0 - 99.0 fL [facility] Monocytes (Bld) [#/Vol] 1.2 10*3/uL High 0.0 - 0.9 10*3/uL [facility] Monocytes/100 WBC (Bld) 8.1 % 5.0 - 13.0 % [facility] Neutrophils (Bld) [#/Vol] 10.8 10*3/uL High 1.8 - 7.5 10*3/uL [facility] Neutrophils/100 WBC (Bld) 73.1 % 38.0 - 82.0 % [facility] Nucleated RBC/100 WBC (Bld) [Ratio] 0.0 % [facility] Platelet mean volume (Bld) [Entitic vol] 10.4 fL 9.0 - 12.7 fL [facility] Platelets (Bld) [#/Vol] 297 10*3/uL 140 - 440 10*3/uL [facility] RBC (Bld) [#/Vol] 3.96 10*6/uL 3.80 - 5.2 0 10*6/uL [facility] WBC (Bld) [#/Vol] 14.7 10*3/uL High 3.6 - 10.7 10*3/uL [facility] CBC WITH AUTO DIFFERENTIALon 02-12-2024 Basophils (Bld) [#/Vol] 0.0 10*3/uL Normal 0.0-0.2 [facility] Comment on above: Performed By: #### L [id number] ####Vp Medical: ROSALVA LOPEZ ([id number])[facility])[address] [place] [address] Basophils/100 WBC (Bld) 0.2 % Normal 0.0-2.0 [facility] Comment on above: Performed By: #### L [id number] ####Vp Medical: ROSALVA LOPEZ ([id number])[facility] ([facility])[address] [place] [address] Eosinophils (Bld) [#/Vol] 0.1 10*3/uL Normal 0.0-0.5 [facility] Comment on above: Performed By: #### L [id number] ####Vp Medical: ROSALVA LOPEZ ([id number])[facility] ([facility])[address] [place] [address] Eosinophils/100 WBC (Bld) 0.8 % Normal 0.0-6.0 [facility] Comment on above: Performed By: #### L [id number] ####Vp Medical: ROSALVA LOPEZ ([id number])[facility])[address] [place] [address] Erythrocyte distribution width (RBC) [Ratio] 15.9 % High 11.5-15.0 [facility] Comment on above: Performed By: #### L [id number] ####Vp Medical: ROSALVA [id number])[facility])[address] [place] [address] Hematocrit (Bld) [Volume fraction] 35.3 % Normal 35.0-47.0 [facility] Comment on above: Performed By: #### L [id number] ####Vp Medical: ROSALVA LOPEZ ([id number])[facility])[address] [place] [address] Hemoglobin (Bld) [Mass/Vol] 10.7 g/dL Low 11.7-16.0 [facility] Comment on above: Performed By: #### L [id number] ####Vp Medical: ROSALVA LOPEZ ([id number])[facility])[address] [place] [address] IMMATURE GRANS % 1.0 % Normal 0.0-2.0 [facility] Comment on above: Performed By: #### L [id number] ####Vp Medical: ROSALVA LOPEZ ([id number])[facility])[address] [place] [address] IMMATURE GRANS ABSOLUTE 0.1 10*3/uL High <0.1 [facility] Comment on above: Performed By: #### L [id number] ####Vp Medical: ROSALVA LOPEZ ([id number])[facility])[address] [place] [address] Lymphocytes (Bld) [#/Vol] 2.5 10*3/uL Normal 1.0-4.3 [facility] Comment on above: Performed By: #### L [id number] ####Vp Medical: ROSALVA LOPEZ ([id number])[facility])[address] [place] [address] Lymphocytes/100 WBC (Bld) 16.8 % Normal 15.0-45.0 [facility] Comment on above: Performed By: #### L [id number] ####Vp Medical: ROSALVA LOPEZ ([id number])[facility])[address] [place] [address] MCH (RBC) [Entitic mass] 27.0 pg Normal 26.0-34.0 [facility] Comment on above: Performed By: #### L [id number] ####Vp Medical: ROSALVA LOPEZ ([id number])[facility])[address] [place] [address] MCHC 30.3 % Low 30.5-36.0 [facility] Comment on above: Performed By: #### L [id number] ####Vp Medical: ROSALVA LOPEZ ([id number])[facility])[address] [place] [address] MCV (RBC) [Entitic vol] 89.1 fL Normal 77.0-99.0 [facility] Comment on above: Performed By: #### L [id number] ####Vp Medical: ROSALVA LOPEZ ([id number])[facility])[address] [place] [address] Monocytes (Bld) [#/Vol] 1.2 10*3/uL High 0.0-0.9 [facility] Comment on above: Performed By: #### L [id number] ####Vp Medical: ROSALVA LOPEZ ([id number])[facility])[address] [place] [address] Monocytes/100 WBC (Bld) 8.1 % Normal 5.0-13.0 [facility] Comment on above: Performed By: #### L [id number] ####Vp Medical: ROSALVA LOPEZ ([id number])[facility])[address] [place] [address] NEUTROPHILS ABSOLUTE 10.8 10*3/uL High 1.8-7.5 [facility] Comment on above: Performed By: #### L [id number] ####Vp Medical: ROSALVA LOPEZ ([id number])[facility])[address] [place] [address] Neutrophils/100 WBC (Bld) 73.1 % Normal 38.0-82.0 [facility] Comment on above: Performed By: #### L [id number] ####Vp Medical: ROSALVA LOPEZ ([id number])[facility] ([facility])[address] [place] [address] NRBC 0.0 /100 WBCs Normal 0.0-2.0 [facility] Comment on above: Performed By: #### L [id number] ####Vp Medical: ROSALVA LOPEZ ([id number])[facility] ([facility])[address] [place] [address] Platelet mean volume (Bld) [Entitic vol] 10.4 fL Normal 9.0-12.7 [facility] Comment on above: Performed By: #### L [id number] ####Vp Medical: ROSALVA LOPEZ ([id number])[facility] ([facility])[address] [place] [address] Platelets (Bld) [#/Vol] 297 10*3/uL Normal 140-440 [facility] Comment on above: Performed By: #### L [id number] ####Vp Medical: ROSALVA LOPEZ ([id number])[facility] ([facility])[address] [place] [address] RBC (Bld) [#/Vol] 3.96 10*6/uL Normal 3.80-5.20 [facility] Comment on above: Performed By: #### L [id number] ####Vp Medical: ROSALVA LOPEZ ([id number])[facility] ([facility])[address] [place] [address] WBC (Bld) [#/Vol] 14.7 10*3/uL High 3.6-10.7 [facility] Comment on above: Performed By: #### L [id number] ####Vp Medical: ROSALVA LOPEZ ([id number])[facility])[address] [place] [address] Progress Noteon 02-12-2024 Progress Note Normal [facility] US ABDOMEN LIMITEDon US ABDOMEN LIMITED Normal [facility] US Abdomen limitedon 024 [facility] RADIOLOG[facility] Radiology Study observation (narrative) [facility] US Abdomen limitedOrdered By : Benjamin Ca on 02-12-2024 [facility] Work Phone: [phone] 02-11-2024 [phone] Normal [facility] BASIC METABOLIC PANELon Anion gap [Moles/Vol] 6 mmol/L Normal 3-13 [facility] Comment on above: Performed By: #### L [id number] ####Vp Medical: ROSALVA LOPEZ ([id number])[facility])[address] [place] [address] Calcium [Mass/Vol] 8.9 mg/dL Normal 8.4-10.4 [facility] Comment on above: Performed By: #### L [id number] ####Vp Medical: ROSALVA LOPEZ ([id number])[facility] ([facility])[address] [place] [address] Chloride [Moles/Vol] 103 mmol/L Normal 98-107 [facility] Comment on above: Performed By: #### L [id number] ####Vp Medical: ROSALVA LOPEZ ([id number])[facility] ([facility])[address] [place] [address] CO2 [Moles/Vol] 27 mmol/L Normal 22-30 [facility] Comment on above: Performed By: #### L [id number] ####Vp Medical: ROSALVA LOPEZ ([id number])[facility])[address] [place] [address] Creatinine [Mass/Vol] 0.62 mg/dL Normal 0.52-1.04 [facility] Comment on above: Performed By: #### L [id number] ####Vp Medical: ROSALVA LOPEZ ([id number])[facility])[address] [place] [address] GLOMERULAR FILTRATION RATE ML/MIN/1.73 SQ M.PREDICTED >90.0 Normal >60.0 [facility] Comment on above: Result Comment: Calc ulation based on the Chronic Kidney Disease Epidemiology Collaboration (CKD-EPI) equation refit without adjustment for race Performed By: #### L [id number] ####Vp Medical: ROSALVA LOPEZ ([id number])[facility] ([facility])[address] [place] [address] Glucose [Mass/Vol] 80 mg/dL Normal 70-100 [facility] Comment on above: Performed By: #### L [id number] ####Vp Medical: ROSALVA LOPEZ ([id number])[facility] ([facility])[address] [place] [address] Potassium [Moles/Vol] 3.7 mmol/L Normal 3.5-5.1 [facility] Comment on above: Performed By: #### L [id number] ####Vp Medical: ROSALVA LOPEZ ([id number])[facility] ([facility])[address] [place] [address] Sodium [Moles/Vol] 136 mmol/L Normal 135-145 [facility] Comment on above: Performed By: #### L [id number] ####Vp Medical: ROSALVA LOPEZ ([id number])[facility] ([facility])[address] [place] [address] Urea nitrogen [Mass/Vol] 17 mg/dL Normal 7-17 [facility] Comment on above: Performed By: #### L [id number] ####Vp Medical: ROSALVA LOPEZ ([id number])[facility])[address] [place] [address] Basic metabolic 1998 panelon 02-11-2024 Anion gap [Moles/Vol] 6 mmol/L 3 - 13 mmol/L [facility] Calcium [Mass/Vol] 8.9 mg/dL 8.4 - 10. 4 mg/dL [facility] Chloride [Moles/Vol] 103 mmol/L 98 - 10 7 mmol/L [facility] CO2 [Moles/Vol] 27 mmol/L 22 - 30 mmol/L [facility] Creatinine [Mass/Vol] 0.62 mg/dL 0.52 - 1.04 mg/dL [facility] GFR/1.73 sq M.predicted (S/P/Bld) [Vol rate/Area] - PINF [facility] Glucose [Mass/Vol] 80 mg/dL 70 - 100 mg/dL [facility] Interpretation and review of laboratory results Normal [facility] Potassium [Moles/Vol] 3.7 mmol/L 3.5 - 5.1 mmol/L [facility] Sodium [Moles/Vol] 136 mmol/L 135 - 145 mmol/L [facility] Urea nitrogen [Mass/Vol] 17 mg/dL 7 - 17 mg/dL [facility]Don [facility]-11-20[facility] notes placed to [facility] via [facility] per TCC request. Await review and response regarding ability to accept. [facility]CC notified. Normal [facility] CARECOORD Normal [facility] CBC W Auto Differential pane l (Bld)on 02-11-2024 Basophils (Bld) [#/Vol] 0.0 10*3/uL 0.0 - 0.2 10*3/uL [facility] Basophils/100 WBC (Bld) 0.2 % 0.0 - 2.0 % [facility] Eosinophils (Bld) [#/Vol] 0.1 10*3/uL 0.0 - 0.5 10*3/uL [facility] Eosinophils/100 WBC (Bld) 0.4 % 0.0 - 6.0 % [facility] Erythrocyte distribution width (RBC) [Ratio] 15.9 % High 11.5 - 15.0 % [facility] Hematocrit (Bld) [Volume fraction] 29.6 % Low 35.0 - 47.0 % [facility] Hemoglobin (Bld) [Mass/Vol] 8.9 g/dL Low 11.7 - 16.0 g/dL [facility] Immature granulocytes (Bld) [#/Vol] 0.1 10*3/uL High NINF - 0.1 10*3/uL [facility] Immature granulocytes/100 WBC (Bld) 0.7 % 0.0 - 2.0 % [facility] Interpretation and review of laboratory results Abnormal [facility] Lymphocytes (Bld) [#/Vol] 2.4 10*3/uL 1.0 - 4.3 10*3/uL [facility] Lymphocytes/100 WBC (Bld) 13.6 % Low 15.0 - 45.0 % [facility] MCH (RBC) [Entitic mass] 25.9 pg Low 26.0 - 34.0 pg [facility] MCHC (RBC) [Mass/Vol] 30.1 % Low 30.5 - 36.0 % [facility] MCV (RBC) [Entitic vol] 86.3 fL 77.0 - 99.0 fL [facility] Monocytes (Bld) [#/Vol] 1.3 10*3/uL High 0.0 - 0.9 10*3/uL [facility] Monocytes/100 WBC (Bld) 7.3 % 5.0 - 13.0 % [facility] Neutrophils (Bld) [#/Vol] 13.8 10*3/uL High 1.8 - 7.5 10*3/uL [facility] Neutrophils/100 WBC (Bld) 77.8 % 38.0 - 82.0 % [facility] Nucleated RBC/100 WBC (Bld) [Ratio] 0.0 % [facility] Platelet mean volume (Bld) [Entitic vol] 10.4 fL 9.0 - 12.7 fL [facility] Platelets (Bld) [#/Vol] 215 10*3/uL 140 - 440 10*3/uL [facility] RBC (Bld) [#/Vol] 3.43 10*6/uL Low 3.80 - 5.2 0 10*6/uL [facility] WBC (Bld) [#/Vol] 17.7 10*3/uL High 3.6 - 10.7 10*3/uL [facility] CBC WITH AUTO DIFFERENTIALon 02-11-2024 Basophils (Bld) [#/Vol] 0.0 10*3/uL Normal 0.0-0.2 [facility] Comment on above: Performed By: #### L [id number] ####Vp Medical: ROSALVA LOPEZ ([id number])[facility] ([address] Basophils/100 WBC (Bld) 0.2 % Normal 0.0-2.0 [facility] Comment on above: Performed By: #### L [id number] ####Vp Medical: ROSALVA [id number])[facility])[address] [place] [address] Eosinophils (Bld) [#/Vol] 0.1 10*3/uL Normal 0.0-0.5 [facility] Comment on above: Performed By: #### L [id number] ####Vp Medical: ROSALVA LOPEZ ([id number])[facility])[address] [place] [address] Eosinophils/100 WBC (Bld) 0.4 % Normal 0.0-6.0 [facility] Comment on above: Performed By: #### L [id number] ####Vp Medical: ROSALVA LOPEZ ([id number])[address] Erythrocyte distribution width (RBC) [Ratio] 15.9 % High 11.5-15.0 [facility] Comment on above: Performed By: #### L [id number] ####Vp Medical: ROSALVA LOPEZ ([id number])[facility])[address] [place] [address] Hematocrit (Bld) [Volume fraction] 29.6 % Low 35.0-47.0 [facility] Comment on above: Performed By: #### L [id number] ####Vp Medical: ROSALVA LOPEZ ([id number])[address] Hemoglobin (Bld) [Mass/Vol] 8.9 g/dL Low 11.7-16.0 [facility] Comment on above: Performed By: #### L [id number] ####Vp Medical: ROSALVA LOPEZ ([id number])[facility])[address] [place] [address] IMMATURE GRANS % 0.7 % Normal 0.0-2.0 [facility] Comment on above: Performed By: #### L [id number] ####Vp Medical: ROSALVA LOPEZ ([id number])[facility])[address] [place] [address] IMMATURE GRANS ABSOLUTE 0.1 10*3/uL High <0.1 [facility] Comment on above: Performed By: #### L [id number] ####Vp Medical: ROSALVA LOPEZ ([id number])[facility])[address] [place] [address] Lymphocytes (Bld) [#/Vol] 2.4 10*3/uL Normal 1.0-4.3 [facility] Comment on above: Performed By: #### L [id number] ####Vp Medical: ROSALVA LOPEZ ([id number])[facility])[address] [place] [address] Lymphocytes/100 WBC (Bld) 13.6 % Low 15.0-45.0 [facility] Comment on above: Performed By: #### L [id number] ####Vp Medical: ROSALVA LOPEZ ([id number])[facility])[address] [place] [address] MCH (RBC) [Entitic mass] 25.9 pg Low 26.0-34.0 [facility] Comment on above: Performed By: #### L [id number] ####Vp Medical: ROSALVA LOPEZ ([id number])[facility])[address] [place] [address] MCHC 30.1 % Low 30.5-36.0 [facility] Comment on above: Performed By: #### L [id number] ####Vp Medical: ROSALVA LOPEZ ([id number])[facility])[address] [place] [address] MCV (RBC) [Entitic vol] 86.3 fL Normal 77.0-99.0 [facility] Comment on above: Performed By: #### L [id number] ####Vp Medical: ROSALVA LOPEZ ([id number])[facility])[address] [place] [address] Monocytes (Bld) [#/Vol] 1.3 10*3/uL High 0.0-0.9 [facility] Comment on above: Performed By: #### L [id number] ####Vp Medical: ROSALVA LOPEZ ([id number])[facility] ([facility])[address] [place] [address] Monocytes/100 WBC (Bld) 7.3 % Normal 5.0-13.0 [facility] Comment on above: Performed By: #### L [id number] ####Vp Medical: ROSALVA LOPEZ ([id number])[facility] ([facility])[address] [place] [address] NEUTROPHILS ABSOLUTE 13.8 10*3/uL High 1.8-7.5 [facility] Comment on above: Performed By: #### L [id number] ####Vp Medical: ROSALVA LOPEZ ([id number])[facility])[address] [place] [address] Neutrophils/100 WBC (Bld) 77.8 % Normal 38.0-82.0 [facility] Comment on above: Performed By: #### L [id number] ####Vp Medical: ROSALVA LOPEZ ([id number])[facility] ([facility])[address] [place] [address] NRBC 0.0 /100 WBCs Normal 0.0-2.0 [facility] Comment on above: Performed By: #### L [id number] ####Vp Medical: ROSALVA LOPEZ ([id number])[facility])[address] [place] [address] Platelet mean volume (Bld) [Entitic vol] 10.4 fL Normal 9.0-12.7 [facility] Comment on above: Performed By: #### L [id number] ####Vp Medical: ROSALVA LOPEZ ([id number])[facility] ([facility])[address] [place] [address] [place] Platelets (Bld) [#/Vol] 215 10*3/uL Normal 140-440 [facility] Comment on above: Performed By: #### L [id number] ####Vp Medical: ROSALVA LOPEZ ([id number])[facility])[address] [place] [address] RBC (Bld) [#/Vol] 3.43 10*6/uL Low 3.80-5.20 [facility] Comment on above: Performed By: #### L [id number] ####Vp Medical: ROSALVA LOPEZ ([id number])[facility])[address] [place] [address] WBC (Bld) [#/Vol] 17.7 10*3/uL High 3.6-10.7 [facility] Comment on above: Performed By: #### L [id number] ####[facility] Medical: ROSALVA LOPEZ ([id number])[address] 02-11-2024 CNPN Telephone (INTMWS) LUIZA MAY ([id number]) 1955 F Date Time Provider Department 02/11/24 MARYAM FRANCO INTVipinWS During your visit today, we recorded the following information about you: Miranda Connell LPN 02/11/2024 4:04 PM Signed Denis from [facility] calling trying to set up home health for the patient. She will be discharging possible this weekend, there for prolonged seizure. Has orders for [facility], PT/OT. She is asking if PCP would follow patient and sign orders? Nurse is there today until 5 pm. Please advise Maryam Franco MD 02/11/2024 4:43 PM Signed Yes, Will follow Maryam Mohamud MD, Beth, LPN 02/11/2024 4:46 PM Signed Phoned Denis and went over notes below from Dr Franco with understanding. Allergies As of Date: 02/11/2024 Noted Allergy Reaction ENTEX (PHENYLEPHRINE-GUAIFENE SIN) 04/22/2005 5 - Intolerance TETANUS VACCINES AND TOXOID 04/22/2005 7 - Swelling Date Reviewed: 01/03/2024 Reviewed by: Lisette Corona LPN - Fully Assessed Reason for Visit: [facility] nurse calling to set up home heal [Other] Prescriptions as of 02/11/2024 - zolpidem (AMBIEN) 10 mg Take 1 [...] by this patient by: PATIENT Seth Chawla [facility] Problem List As Of Date 02/11/2024 Noted Resolved COUGH [R05.9] 04/01/2006 05/03/2006 OBST [...] 12/24/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) [Z93.0] 01/03/2024 Encounter Status:Closed by MIRANDA CONNELL on 02/11/24 Normal [facility] Nursing Noteon 02-11-2024 Nursing Note Right internal jugul ar removed. Pressure hold on the site after removal. Pt tolerated well. Normal [facility] Progress Noteon 02-11-2024 Progress Note Normal [facility] Progress Note Normal [facility] Progress Note Normal [facility] BASIC METABOLIC PANELon 08-0 Anion gap [Moles/Vol] 2 mmol/L Low 3-13 [facility] Comment on above: Performed By: #### L [id number] ####Vp Medical: ROSALVA LOPEZ ([id number])[facility])[address] [place] [address] [place] Calcium [Mass/Vol] 8.6 mg/dL Normal 8.4-10.4 [facility] [place] Comment on above: Performed By: #### L [id number] ####[facility]: ROSALVA LOPEZ ([id number])[facility] ([facility])[address] [place] [address] [place] Chloride [Moles/Vol] 104 mmol/L Normal 98-107 [facility] Comment on above: Performed By: #### L [id number] ####Vp Medical: ROSALVA LOPEZ ([id number])[facility] ([facility])[address] [place] [address] [place] CO2 [Moles/Vol] 30 mmol/L Normal 22-30 [facility] [place] Comment on above: Performed By: #### L [id number] ####Vp Medical: ROSALVA LOPEZ ([id number])[facility])[address] [place] [address] Creatinine [Mass/Vol] 0.61 mg/dL Normal 0.52-1.04 [facility] Comment on above: Performed By: #### L [id number] ####Vp Medical: ROSALVA LOPEZ ([id number])[facility])[address] [place] [address] GLOMERULAR FILTRATION RATE ML/MIN/1.73 SQ M.PREDICTED >90.0 Normal >60.0 [facility] [place] Comment on above: Result Comment: Calc ulation based on the Chronic Kidney Disease Epidemiology Collaboration (CKD-EPI) equation refit without adjustment for race Performed By: #### L [id number] ####Vp Medical: ROSALVA LOPEZ ([id number])[facility])[address] [place] [address] Glucose [Mass/Vol] 116 mg/dL High 70-100 [facility] [place] Comment on above: Performed By: #### L [id number] ####Vp Medical: ROSALVA LOPEZ ([id number])[facility])[address] [place] [address] Potassium [Moles/Vol] 3.9 mmol/L Normal 3.5-5.1 [facility] Comment on above: Performed By: #### L [id number] ####Vp Medical: ROSALVA LOPEZ ([id number])[facility])[address] [place] [address] [place] Sodium [Moles/Vol] 136 mmol/L Normal 135-145 [facility] [place] Comment on above: Performed By: #### L [id number] ####Vp Medical: ROSALVA LOPEZ ([id number])[facility])[address] [place] [address] Urea nitrogen [Mass/Vol] 20 mg/dL High 7-17 [facility] [place] Comment on above: Performed By: #### L [id number] ####Vp Medical: ROSALVA LOPEZ ([id number])[facility] ([facility])[address] [place] [address] Basic metabolic 1998 panelon 02-10-2024 Anion gap [Moles/Vol] 2 mmol/L Low 3 - 13 mmol/L [facility] Calcium [Mass/Vol] 8.6 mg/dL 8.4 - 10. 4 mg/dL [facility] Chloride [Moles/Vol] 104 mmol/L 98 - 10 7 mmol/L [facility] CO2 [Moles/Vol] 30 mmol/L 22 - 30 mmol/L [facility] Creatinine [Mass/Vol] 0.61 mg/dL 0.52 - 1.04 mg/dL [facility] GFR/1.73 sq M.predicted (S/P/Bld) [Vol rate/Area] - PINF [facility] Glucose [Mass/Vol] 116 mg/dL High 70 - 100 mg/dL [facility] Interpretation and review of laboratory results Abnormal [facility] Potassium [Moles/Vol] 3.9 mmol/L 3.5 - 5.1 mmol/L [facility] Sodium [Moles/Vol] 136 mmol/L 135 - 145 mmol/L [facility] Urea nitrogen [Mass/Vol] 20 mg/dL High 7 - 17 mg/dL [facility] CARECOORDon 02-10-2024 CARECOORD Normal [facility] CBC W Auto Differential pane l (Bld)on 02-10-2024 Basophils (Bld) [#/Vol] 0.0 10*3/uL 0.0 - 0.2 10*3/uL [facility] Basophils/100 WBC (Bld) 0.2 % 0.0 - 2.0 % [facility] Eosinophils (Bld) [#/Vol] 0.0 10*3/uL 0.0 - 0.5 10*3/uL [facility] Eosinophils/100 WBC (Bld) 0.1 % 0.0 - 6.0 % [facility] Erythrocyte distribution width (RBC) [Ratio] 15.7 % High 11.5 - 15.0 % [facility] Hematocrit (Bld) [Volume fraction] 28.0 % Low 35.0 - 47.0 % [facility] Hemoglobin (Bld) [Mass/Vol] 8.4 g/dL Low 11.7 - 16.0 g/dL [facility] [employer] Immature granulocytes (Bld) [#/Vol] 0.1 10*3/uL High NINF - 0.1 10*3/uL [facility] Immature granulocytes/100 WBC (Bld) 0.9 % 0.0 - 2.0 % [facility] Interpretation and review of laboratory results Abnormal [facility] Lymphocytes (Bld) [#/Vol] 1.6 10*3/uL 1.0 - 4.3 10*3/uL [facility] Lymphocytes/100 WBC (Bld) 13.8 % Low 15.0 - 45.0 % [facility] MCH (RBC) [Entitic mass] 26.1 pg 26.0 - 34.0 pg [facility] MCHC (RBC) [Mass/Vol] 30.0 % Low 30.5 - 36.0 % [facility] MCV (RBC) [Entitic vol] 87.0 fL 77.0 - 99.0 fL [facility] [employer] Monocytes (Bld) [#/Vol] 0.8 10*3/uL 0.0 - 0.9 10*3/uL [facility] Monocytes/100 WBC (Bld) 6.7 % 5.0 - 13.0 % [facility] Neutrophils (Bld) [#/Vol] 8.9 10*3/uL High 1.8 - 7.5 10*3/uL [facility] Neutrophils/100 WBC (Bld) 78.3 % 38.0 - 82.0 % [facility] Nucleated RBC/100 WBC (Bld) [Ratio] 0.0 % [facility] [employer] Platelet mean volume (Bld) [Entitic vol] 10.3 fL 9.0 - 12.7 fL [facility] Platelets (Bld) [#/Vol] 245 10*3/uL 140 - 440 10*3/uL [facility] RBC (Bld) [#/Vol] 3.22 10*6/uL Low 3.80 - 5.2 0 10*6/uL [facility] WBC (Bld) [#/Vol] 11.3 10*3/uL High 3.6 - 10.7 10*3/uL [facility] CBC WITH AUTO DIFFERENTIALon 02-10-2024 Basophils (Bld) [#/Vol] 0.0 10*3/uL Normal 0.0-0.2 [facility] Comment on above: Performed By: #### L [id number] ####Vp Medical: ROSALVA LOPEZ ([id number])[facility])[address] [place] [address] Basophils/100 WBC (Bld) 0.2 % Normal 0.0-2.0 [facility] Comment on above: Performed By: #### L [id number] ####Vp Medical: ROSALVA LOPEZ ([id number])[facility])[address] [place] [address] Eosinophils (Bld) [#/Vol] 0.0 10*3/uL Normal 0.0-0.5 [facility] Comment on above: Performed By: #### L [id number] ####Vp Medical: ROSALVA LOPEZ ([id number])[facility])[address] [place] [address] Eosinophils/100 WBC (Bld) 0.1 % Normal 0.0-6.0 [facility] Comment on above: Performed By: #### L [id number] ####[facility] Medical: ROSALVA LOPEZ ([id number])[address] Erythrocyte distribution width (RBC) [Ratio] 15.7 % High 11.5-15.0 [facility] [place] Comment on above: Performed By: #### L [id number] ####Vp Medical: ROSALVA LOPEZ ([id number])[facility])[address] [place] [address] Hematocrit (Bld) [Volume fraction] 28.0 % Low 35.0-47.0 [facility] Comment on above: Performed By: #### L [id number] ####Vp Medical: ROSALVA LOPEZ ([id number])[address] Hemoglobin (Bld) [Mass/Vol] 8.4 g/dL Low 11.7-16.0 [facility] Comment on above: Performed By: #### L [id number] ####Vp Medical: ROSALVA LOPEZ ([id number])[facility])[address] [place] [address] IMMATURE GRANS % 0.9 % Normal 0.0-2.0 [facility] Comment on above: Performed By: #### L [id number] ####Vp Medical: ROSALVA LOPEZ ([id number])[facility])[address] [place] [address] IMMATURE GRANS ABSOLUTE 0.1 10*3/uL High <0.1 [facility] Comment on above: Performed By: #### L [id number] ####Vp Medical: ROSALVA LOPEZ ([id number])[facility])[address] [place] [address] Lymphocytes (Bld) [#/Vol] 1.6 10*3/uL Normal 1.0-4.3 [facility] Comment on above: Performed By: #### L [id number] ####Vp Medical: ROSALVA LOPEZ ([id number])[facility])[address] [place] [address] Lymphocytes/100 WBC (Bld) 13.8 % Low 15.0-45.0 [facility] Comment on above: Performed By: #### L [id number] ####Vp Medical: ROSALVA LOPEZ ([id number])[facility])[address] [place] [address] MCH (RBC) [Entitic mass] 26.1 pg Normal 26.0-34.0 [facility] Comment on above: Performed By: #### L [id number] ####Vp Medical: ROSALVA LOPEZ ([id number])[facility])[address] [place] [address] MCHC 30.0 % Low 30.5-36.0 [facility] Comment on above: Performed By: #### L [id number] ####Vp Medical: ROSALVA LOPEZ ([id number])[facility])[address] [place] [address] MCV (RBC) [Entitic vol] 87.0 fL Normal 77.0-99.0 [facility] Comment on above: Performed By: #### L [id number] ####Vp Medical: ROSALVA LOPEZ ([id number])[facility] ([facility])[address] [place] [address] Monocytes (Bld) [#/Vol] 0.8 10*3/uL Normal 0.0-0.9 [facility] Comment on above: Performed By: #### L [id number] ####Vp Medical: ROSALVA LOPEZ ([id number])[facility] ([facility])[address] [place] [address] Monocytes/100 WBC (Bld) 6.7 % Normal 5.0-13.0 [facility] Comment on above: Performed By: #### L [id number] ####Vp Medical: ROSALVA LOPEZ ([id number])[facility] ([facility])[address] [place] [address] NEUTROPHILS ABSOLUTE 8.9 10*3/uL High 1.8-7.5 [facility] [place] [facility] Comment on above: Performed By: #### L [id number] ####Vp Medical: ROSALVA LOPEZ ([id number])[facility] ([facility])[address] [place] [address] Neutrophils/100 WBC (Bld) 78.3 % Normal 38.0-82.0 [facility] Comment on above: Performed By: #### L [id number] ####Vp Medical: ROSALVA LOPEZ ([id number])[facility] ([facility])[address] [place] [address] NRBC 0.0 /100 WBCs Normal 0.0-2.0 [facility] Comment on above: Performed By: #### L [id number] ####Vp Medical: ROSALVA LOPEZ ([id number])[facility] ([facility])[address] [place] [address] Platelet mean volume (Bld) [Entitic vol] 10.3 fL Normal 9.0-12.7 [facility] Comment on above: Performed By: #### L [id number] ####Vp Medical: ROSALVA LOPEZ ([id number])[facility])[address] [place] [address] Platelets (Bld) [#/Vol] 245 10*3/uL Normal 140-440 [facility] Comment on above: Performed By: #### L [id number] ####Vp Medical: ROSALVA LOPEZ ([id number])[facility] ([facility])[address] [place] [address] RBC (Bld) [#/Vol] 3.22 10*6/uL Low 3.80-5.20 [facility] Comment on above: Performed By: #### L [id number] ####Vp Medical: ROSALVA LOPEZ ([id number])[facility])[address] [place] [address] WBC (Bld) [#/Vol] 11.3 10*3/uL High 3.6-10.7 [facility] Comment on above: Performed By: #### L [id number] ####Vp Medical: ROSALVA LOPEZ ([id number])[facility])[address] [place] [address] Progress Noteon 02-10-2024 Progress Note Normal [facility] Progress Note Normal [facility] Progress Note Normal [facility] Progress Note Normal [facility] [id number] 02-09-2024 [id number] Normal [facility] BASIC METABOLIC PANELon 08-0 Anion gap [Moles/Vol] 3 mmol/L Normal 3-13 [facility] [place] [facility] Comment on above: Performed By: #### L [id number] ####Vp Medical: ROSALVA LOPEZ ([id number])[facility])[address] [place] [address] Calcium [Mass/Vol] 8.9 mg/dL Normal 8.4-10.4 [facility] Comment on above: Performed By: #### L [id number] ####Vp Medical: ROSALVA LOPEZ ([id number])[facility] [place] [address] Chloride [Moles/Vol] 102 mmol/L Normal 98-107 [facility] Comment on above: Performed By: #### L [id number] ####Vp Medical: ROSALVA LOPEZ ([id number])[facility] [place] [address] CO2 [Moles/Vol] 32 mmol/L High 22-30 [facility] [place] Comment on above: Performed By: #### L [id number] ####Vp Medical: ROSALVA LOPEZ ([id number])[facility] ([facility])[address] [place] [address] Creatinine [Mass/Vol] 0.58 mg/dL Normal 0.52-1.04 [facility] Comment on above: Performed By: #### L [id number] ####Vp Medical: ROSALVA LOPEZ ([id number])[facility])[address] [place] [address] GLOMERULAR FILTRATION RATE ML/MIN/1.73 SQ M.PREDICTED >90.0 Normal >60.0 [facility] [place] Comment on above: Result Comment: Calc ulation based on the Chronic Kidney Disease Epidemiology Collaboration (CKD-EPI) equation refit without adjustment for race Performed By: #### L [id number] ####Vp Medical: ROSALVA LOPEZ ([id number])[facility])[address] [place] [address] Glucose [Mass/Vol] 89 mg/dL Normal 70-100 [facility] [place] Comment on above: Performed By: #### L [id number] ####Vp Medical: ROSALVA LOPEZ ([id number])[facility])[address] [place] [address] Potassium [Moles/Vol] 3.6 mmol/L Normal 3.5-5.1 [facility] Comment on above: Performed By: #### L [id number] ####Vp Medical: ROSALVA LOPEZ ([id number])[facility])[address] [place] [address] Sodium [Moles/Vol] 137 mmol/L Normal 135-145 [facility] [place] Comment on above: Performed By: #### L [id number] ####Vp Medical: ROSALVA LOPEZ ([id number])[facility])[address] [place] [address] Urea nitrogen [Mass/Vol] 13 mg/dL Normal 7-17 [facility] [place] Comment on above: Performed By: #### L [id number] ####Vp Medical: ROSALVA LOPEZ ([id number])[facility] [place] [address] Basic metabolic 1998 panelon 02-09-2024 Anion gap [Moles/Vol] 3 mmol/L 3 - 13 mmol/L [facility] Calcium [Mass/Vol] 8.9 mg/dL 8.4 - 10. 4 mg/dL [facility] Chloride [Moles/Vol] 102 mmol/L 98 - 10 7 mmol/L [facility] CO2 [Moles/Vol] 32 mmol/L High 22 - 30 mmol/L [facility] Creatinine [Mass/Vol] 0.58 mg/dL 0.52 - 1.04 mg/dL [facility] GFR/1.73 sq M.predicted (S/P/Bld) [Vol rate/Area] - PINF [facility] Glucose [Mass/Vol] 89 mg/dL 70 - 100 mg/dL [facility] Interpretation and review of laboratory results Abnormal [facility] Potassium [Moles/Vol] 3.6 mmol/L 3.5 - 5.1 mmol/L [facility] Sodium [Moles/Vol] 137 mmol/L 135 - 145 mmol/L [facility] Urea nitrogen [Mass/Vol] 13 mg/dL 7 - 17 mg/dL [facility] CARECOORDon 02-09-2024 CARECOORD Normal [facility] CBC W Auto Differential pane l (Bld)on 02-09-2024 Basophils (Bld) [#/Vol] 0.0 10*3/uL 0.0 - 0.2 10*3/uL [facility] Basophils/100 WBC (Bld) 0.2 % 0.0 - 2.0 % [facility] Eosinophils (Bld) [#/Vol] 0.1 10*3/uL 0.0 - 0.5 10*3/uL [facility] Eosinophils/100 WBC (Bld) 0.9 % 0.0 - 6.0 % [facility] Erythrocyte distribution width (RBC) [Ratio] 15.6 % High 11.5 - 15.0 % [facility] Hematocrit (Bld) [Volume fraction] 30.2 % Low 35.0 - 47.0 % [facility] Hemoglobin (Bld) [Mass/Vol] 9.3 g/dL Low 11.7 - 16.0 g/dL [facility] Immature granulocytes (Bld) [#/Vol] 0.1 10*3/uL High NINF - 0.1 10*3/uL [facility] Immature granulocytes/100 WBC (Bld) 1.4 % 0.0 - 2.0 % [facility] Interpretation and review of laboratory results Abnormal [facility] Lymphocytes (Bld) [#/Vol] 2.5 10*3/uL 1.0 - 4.3 10*3/uL [facility] Lymphocytes/100 WBC (Bld) 25.5 % 15.0 - 45.0 % [facility] MCH (RBC) [Entitic mass] 26.6 pg 26.0 - 34.0 pg [facility] MCHC (RBC) [Mass/Vol] 30.8 % 30.5 - 36.0 % [facility] MCV (RBC) [Entitic vol] 86.5 fL 77.0 - 99.0 fL [facility] Monocytes (Bld) [#/Vol] 0.9 10*3/uL 0.0 - 0.9 10*3/uL [facility] Monocytes/100 WBC (Bld) 9.2 % 5.0 - 13.0 % [facility] Neutrophils (Bld) [#/Vol] 6.2 10*3/uL 1.8 - 7.5 10*3/uL [facility] Neutrophils/100 WBC (Bld) 62.8 % 38.0 - 82.0 % [facility] Nucleated RBC/100 WBC (Bld) [Ratio] 0.0 % [facility] Platelet mean volume (Bld) [Entitic vol] 10.2 fL 9.0 - 12.7 fL [facility] Platelets (Bld) [#/Vol] 249 10*3/uL 140 - 440 10*3/uL [facility] RBC (Bld) [#/Vol] 3.49 10*6/uL Low 3.80 - 5.2 0 10*6/uL [facility] WBC (Bld) [#/Vol] 9.8 10*3/uL 3.6 - 10.7 10*3/uL [facility] CBC WITH AUTO DIFFERENTIALon 02-09-2024 Basophils (Bld) [#/Vol] 0.0 10*3/uL Normal 0.0-0.2 [facility] Comment on above: Performed By: #### L [id number] ####Vp Medical: ROSALVA LOPEZ ([id number])[facility])[address] [place] [address] Basophils/100 WBC (Bld) 0.2 % Normal 0.0-2.0 [facility] Comment on above: Performed By: #### L [id number] ####Vp Medical: ROSALVA LOPEZ ([id number])[facility])[address] [place] [address] Eosinophils (Bld) [#/Vol] 0.1 10*3/uL Normal 0.0-0.5 [facility] Comment on above: Performed By: #### L [id number] ####Vp Medical: ROSALVA LOPEZ ([id number])[facility])[address] [place] [address] Eosinophils/100 WBC (Bld) 0.9 % Normal 0.0-6.0 [facility] Comment on above: Performed By: #### L [id number] ####Vp Medical: ROSALVA LOPEZ ([id number])[facility])[address] [place] [address] Erythrocyte distribution width (RBC) [Ratio] 15.6 % High 11.5-15.0 [facility] Comment on above: Performed By: #### L [id number] ####Vp Medical: ROSALVA LOPEZ ([id number])[facility])[address] [place] [address] Hematocrit (Bld) [Volume fraction] 30.2 % Low 35.0-47.0 [facility] Comment on above: Performed By: #### L [id number] ####Vp Medical: ROSALVA LOPEZ ([id number])[facility])[address] [place] [address] Hemoglobin (Bld) [Mass/Vol] 9.3 g/dL Low 11.7-16.0 [facility] Comment on above: Performed By: #### L [id number] ####Vp Medical: ROSALVA LOPEZ ([id number])[facility])[address] [place] [address] IMMATURE GRANS % 1.4 % Normal 0.0-2.0 [facility] Comment on above: Performed By: #### L [id number] ####Vp Medical: ROSALVA LOPEZ ([id number])[facility])[address] [place] [address] IMMATURE GRANS ABSOLUTE 0.1 10*3/uL High <0.1 [facility] Comment on above: Performed By: #### L [id number] ####Vp Medical: ROSALVA LOPEZ ([id number])[facility])[address] [place] [address] Lymphocytes (Bld) [#/Vol] 2.5 10*3/uL Normal 1.0-4.3 [facility] Comment on above: Performed By: #### L [id number] ####Vp Medical: ROSALVA LOPEZ ([id number])[facility])[address] [place] [address] Lymphocytes/100 WBC (Bld) 25.5 % Normal 15.0-45.0 [facility] Comment on above: Performed By: #### L [id number] ####Vp Medical: ROSALVA LOPEZ ([id number])[facility])[address] [place] [address] MCH (RBC) [Entitic mass] 26.6 pg Normal 26.0-34.0 [facility] Comment on above: Performed By: #### L [id number] ####Vp Medical: ROSALVA LOPEZ ([id number])[facility])[address] [place] [address] MCHC 30.8 % Normal 30.5-36.0 [facility] Comment on above: Performed By: #### L [id number] ####Vp Medical: ROSALVA LOPEZ ([id number])[facility])[address] [place] [address] MCV (RBC) [Entitic vol] 86.5 fL Normal 77.0-99.0 [facility] Comment on above: Performed By: #### L [id number] ####Vp Medical: ROSALVA LOPEZ ([id number])[facility])[address] [place] [address] Monocytes (Bld) [#/Vol] 0.9 10*3/uL Normal 0.0-0.9 [facility] Comment on above: Performed By: #### L [id number] ####Vp Medical: ROSALVA LOPEZ ([id number])[facility])[address] [place] [address] Monocytes/100 WBC (Bld) 9.2 % Normal 5.0-13.0 [facility] Comment on above: Performed By: #### L [id number] ####Vp Medical: ROSALVA LOPEZ ([id number])[facility])[address] [place] [address] NEUTROPHILS ABSOLUTE 6.2 10*3/uL Normal 1.8-7.5 [facility] [place] [facility] Comment on above: Performed By: #### L [id number] ####Vp Medical: ROSALVA LOPEZ ([id number])[facility])[address] [place] [address] Neutrophils/100 WBC (Bld) 62.8 % Normal 38.0-82.0 [facility] Comment on above: Performed By: #### L [id number] ####[facility]: ROSALVA LOPEZ ([id number])[facility])[address] [place] [address] NRBC 0.0 /100 WBCs Normal 0.0-2.0 [facility] Comment on above: Performed By: #### L [id number] ####[facility]: ROSALVA LOPEZ ([id number])[facility])[address] [place] [address] Platelet mean volume (Bld) [Entitic vol] 10.2 fL Normal 9.0-12.7 [facility] Comment on above: Performed By: #### L [id number] ####[facility]: ROSALVA LOPEZ ([id number])[facility])[address] [place] [address] Platelets (Bld) [#/Vol] 249 10*3/uL Normal 140-440 [facility] Comment on above: Performed By: #### L [id number] ####[facility] Medical: ROSALVA LOPEZ ([id number])[facility])[address] [place] [address] RBC (Bld) [#/Vol] 3.49 10*6/uL Low 3.80-5.20 [facility] Comment on above: Performed By: #### L [id number] ####[facility]: ROSALVA LOPEZ ([id number])[facility])[address] [place] [address] WBC (Bld) [#/Vol] 9.8 10*3/uL Normal 3.6-10.7 [facility] Comment on above: Performed By: #### L [id number] ####[facility] Medical: ROSALVA LOPEZ ([id number])[facility])[address] [place] [address] Progress Noteon 02-09-2024 Progress Note Normal [facility] Progress Note Normal [facility] Progress Note Normal [facility] Progress [facility] Normal [facility] Progress Note Normal [facility] Progress Note Normal [facility] BASIC METABOLIC PANELon 08 Anion gap [Moles/Vol] 3 mmol/L Normal 3-13 [facility] Comment on above: Performed By: #### L [id number] ####[facility]: ROSALVA LOPEZ ([id number])[facility])[address] [place] [address] Calcium [Mass/Vol] 8.7 mg/dL Normal 8.4-10.4 [facility] Comment on above: Performed By: #### L [id number] ####[facility]: ROSALVA LOPEZ ([id number])[facility] ADMINISTRATION ([facility])[address] [place] [address] Chloride [Moles/Vol] 103 mmol/L Normal 98-107 [facility] Comment on above: Performed By: #### L [id number] ####Vp Medical: ROSALVA LOPEZ ([id number])[facility] ([facility])[address] [place] [address] CO2 [Moles/Vol] 31 mmol/L High 22-30 [facility] Comment on above: Performed By: #### L [id number] ####Vp Medical: ROSALVA LOPEZ ([id number])[facility] ([facility])[address] [place] [address] Creatinine [Mass/Vol] 0.64 mg/dL Normal 0.52-1.04 [facility] Comment on above: Performed By: #### L [id number] ####Vp Medical: ROSALVA LOPEZ ([id number])[facility] ([facility])[address] [place] [address] GLOMERULAR FILTRATION RATE ML/MIN/1.73 SQ M.PREDICTED >90.0 Normal >60.0 [facility] Comment on above: Result Comment: Calc ulation based on the Chronic Kidney Disease Epidemiology Collaboration (CKD-EPI) equation refit without adjustment for race Performed By: #### L [id number] ####Vp Medical: ROSALVA LOPEZ ([id number])[facility] ([facility])[address] [place] [address] [place] Glucose [Mass/Vol] 92 mg/dL Normal 70-100 [facility] Comment on above: Performed By: #### L [id number] ####Vp Medical: ROSALVA LOPEZ ([id number])[facility] ([facility])[address] [place] [address] Potassium [Moles/Vol] 3.3 mmol/L Low 3.5-5.1 [facility] Comment on above: Performed By: #### L [id number] ####Vp Medical: ROSALVA LOPEZ ([id number])[facility])[address] [place] [address] Sodium [Moles/Vol] 138 mmol/L Normal 135-145 [facility] Comment on above: Performed By: #### L [id number] ####Vp Medical: ROSALVA LOPEZ ([id number])[facility])[address] [place] [address] Urea nitrogen [Mass/Vol] 20 mg/dL High 7-17 [facility] Comment on above: Performed By: #### L [id number] ####Vp Medical: ROSALVA LOPEZ ([id number])[facility] ([facility])[address] [place] [address] Basic metabolic 1998 panelon 02-08-2024 Anion gap [Moles/Vol] 3 mmol/L 3 - 13 mmol/L [facility] Calcium [Mass/Vol] 8.7 mg/dL 8.4 - 10. 4 mg/dL [facility] Chloride [Moles/Vol] 103 mmol/L 98 - 10 7 mmol/L [facility] CO2 [Moles/Vol] 31 mmol/L High 22 - 30 mmol/L [facility] Creatinine [Mass/Vol] 0.64 mg/dL 0.52 - 1.04 mg/dL [facility] GFR/1.73 sq M.predicted (S/P/Bld) [Vol rate/Area] - PINF [facility] Glucose [Mass/Vol] 92 mg/dL 70 - 100 mg/dL [facility] Interpretation and review of laboratory results Abnormal [facility] Potassium [Moles/Vol] 3.3 mmol/L Low 3.5 - 5.1 mmol/L [facility] Sodium [Moles/Vol] 138 mmol/L 135 - 145 mmol/L [facility] Urea nitrogen [Mass/Vol] 20 mg/dL High 7 - 17 mg/dL [facility] CARECOORDon 02-08-2024 CARECOORD Normal [facility] CBC W Auto Differential pane l (Bld)Ordered By: Benjamin Lei on 02-08-2024 Basophils (Bld) [#/Vol] 0.0 10*3/uL 0.0 - 0.2 10*3/uL [facility] Basophils/100 WBC (Bld) 0.1 % 0.0 - 2.0 % [facility] Eosinophils (Bld) [#/Vol] 0.0 10*3/uL 0.0 - 0.5 10*3/uL [facility] Eosinophils/100 WBC (Bld) 0.4 % 0.0 - 6.0 % [facility] Erythrocyte distribution width (RBC) [Ratio] 15.4 % High 11.5 - 15.0 % [facility] Hematocrit (Bld) [Volume fraction] 28.3 % Low 35.0 - 47.0 % [facility] Hemoglobin (Bld) [Mass/Vol] 8.7 g/dL Low 11.7 - 16.0 g/dL [facility] Immature granulocytes (Bld) [#/Vol] 0.1 10*3/uL High NINF - 0.1 10*3/uL [facility] Immature granulocytes/100 WBC (Bld) 1.2 % 0.0 - 2.0 % [facility] Interpretation and review of laboratory results Abnormal [facility] Lymphocytes (Bld) [#/Vol] 2.2 10*3/uL 1.0 - 4.3 10*3/uL [facility] Lymphocytes/100 WBC (Bld) 23.7 % 15.0 - 45.0 % [facility] MCH (RBC) [Entitic mass] 26.4 pg 26.0 - 34.0 pg [facility] MCHC (RBC) [Mass/Vol] 30.7 % 30.5 - 36.0 % [facility] MCV (RBC) [Entitic vol] 86.0 fL 77.0 - 99.0 fL [facility] Monocytes (Bld) [#/Vol] 0.8 10*3/uL 0.0 - 0.9 10*3/uL [facility] Monocytes/100 WBC (Bld) 8.4 % 5.0 - 13.0 % [facility] Neutrophils (Bld) [#/Vol] 6.2 10*3/uL 1.8 - 7.5 10*3/uL [facility] Neutrophils/100 WBC (Bld) 66.2 % 38.0 - 82.0 % [facility] Nucleated RBC/100 WBC (Bld) [Ratio] 0.0 % [facility] Platelet mean volume (Bld) [Entitic vol] 10.5 fL 9.0 - 12.7 fL [facility] Platelets (Bld) [#/Vol] 227 10*3/uL 140 - 440 10*3/uL [facility] RBC (Bld) [#/Vol] 3.29 10*6/uL Low 3.80 - 5.2 0 10*6/uL [facility] WBC (Bld) [#/Vol] 9.3 10*3/uL 3.6 - 10.7 10*3/uL [facility] CBC WITH AUTO DIFFERENTIALon 02-08-2024 Basophils (Bld) [#/Vol] 0.0 10*3/uL Normal 0.0-0.2 [facility] Comment on above: Performed By: #### L [id number] ####Vp Medical: ROSALVA LOPEZ ([id number])[address] Basophils/100 WBC (Bld) 0.1 % Normal 0.0-2.0 [facility] Comment on above: Performed By: #### L [id number] ####Vp Medical: ROSALVA LOPEZ ([id number])[facility])[address] [place] [address] Eosinophils (Bld) [#/Vol] 0.0 10*3/uL Normal 0.0-0.5 [facility] Comment on above: Performed By: #### L [id number] ####Vp Medical: ROSALVA LOPEZ ([id number])[facility])[address] [place] [address] Eosinophils/100 WBC (Bld) 0.4 % Normal 0.0-6.0 [facility] Comment on above: Performed By: #### L [id number] ####Vp Medical: ROSALVA LOPEZ ([id number])[facility])[address] [place] [address] Erythrocyte distribution width (RBC) [Ratio] 15.4 % High 11.5-15.0 [facility] Comment on above: Performed By: #### L [id number] ####Vp Medical: ROSALVA LOPEZ ([id number])[facility])[address] [place] [address] Hematocrit (Bld) [Volume fraction] 28.3 % Low 35.0-47.0 [facility] Comment on above: Performed By: #### L [id number] ####Vp Medical: ROSALVA LOPEZ ([id number])[address] Hemoglobin (Bld) [Mass/Vol] 8.7 g/dL Low 11.7-16.0 [facility] Comment on above: Performed By: #### L [id number] ####Vp Medical: ROSALVA LOPEZ ([id number])[facility])[address] [place] [address] IMMATURE GRANS % 1.2 % Normal 0.0-2.0 [facility] Comment on above: Performed By: #### L [id number] ####Vp Medical: ROSALVA LOPEZ ([id number])[address] IMMATURE GRANS ABSOLUTE 0.1 10*3/uL High <0.1 [facility] Comment on above: Performed By: #### L [id number] ####Vp Medical: ROSALVA LOPEZ ([id number])[facility])[address] [place] [address] Lymphocytes (Bld) [#/Vol] 2.2 10*3/uL Normal 1.0-4.3 [facility] Comment on above: Performed By: #### L [id number] ####Vp Medical: ROSALVA LOPEZ ([id number])[facility])[address] [place] [address] Lymphocytes/100 WBC (Bld) 23.7 % Normal 15.0-45.0 [facility] Comment on above: Performed By: #### L [id number] ####Vp Medical: ROSALVA LOPEZ ([id number])[facility])[address] [place] [address] MCH (RBC) [Entitic mass] 26.4 pg Normal 26.0-34.0 [facility] Comment on above: Performed By: #### L [id number] ####Vp Medical: ROSALVA LOPEZ ([id number])[facility])[address] [place] [address] MCHC 30.7 % Normal 30.5-36.0 [facility] Comment on above: Performed By: #### L [id number] ####Vp Medical: ROSALVA LOPEZ ([id number])[facility])[address] [place] [address] MCV (RBC) [Entitic vol] 86.0 fL Normal 77.0-99.0 [facility] Comment on above: Performed By: #### L [id number] ####Vp Medical: ROSALVA LOPEZ ([id number])[facility])[address] [place] [address] Monocytes (Bld) [#/Vol] 0.8 10*3/uL Normal 0.0-0.9 [facility] Comment on above: Performed By: #### L [id number] ####Vp Medical: ROSALVA LOPEZ ([id number])[facility] ([facility])[address] [place] [address] Monocytes/100 WBC (Bld) 8.4 % Normal 5.0-13.0 [facility] Comment on above: Performed By: #### L [id number] ####Vp Medical: ROSALVA LOPEZ ([id number])[facility])[address] [place] [address] NEUTROPHILS ABSOLUTE 6.2 10*3/uL Normal 1.8-7.5 [facility] Comment on above: Performed By: #### L [id number] ####Vp Medical: ROSALVA LOPEZ ([id number])[facility])[address] [place] [address] Neutrophils/100 WBC (Bld) 66.2 % Normal 38.0-82.0 [facility] Comment on above: Performed By: #### L [id number] ####Vp Medical: ROSALVA LOPEZ ([id number])[facility] ([facility])[address] [place] [address] NRBC 0.0 /100 WBCs Normal 0.0-2.0 [facility] Comment on above: Performed By: #### L [id number] ####Vp Medical: ROSALVA LOPEZ ([id number])[facility])[address] [place] [address] Platelet mean volume (Bld) [Entitic vol] 10.5 fL Normal 9.0-12.7 [facility] Comment on above: Performed By: #### L [id number] ####Vp Medical: ROSALVA LOPEZ ([id number])[facility] ([facility])[address] [place] [address] Platelets (Bld) [#/Vol] 227 10*3/uL Normal 140-440 [facility] Comment on above: Performed By: #### L [id number] ####Vp Medical: ROSALVA LOPEZ ([id number])[facility])[address] [place] [address] RBC (Bld) [#/Vol] 3.29 10*6/uL Low 3.80-5.20 [facility] Comment on above: Performed By: #### L [id number] ####Vp Medical: ROSALVA LOPEZ ([id number])[facility])[address] [place] [address] WBC (Bld) [#/Vol] 9.3 10*3/uL Normal 3.6-10.7 [facility] Comment on above: Performed By: #### L [id number] ####Vp Medical: ROSALVA LOPEZ ([id number])[facility] ([facility])[address] [place] [address] [place] IDNon 02-08-2024 IDN Normal [facility] Nursing Noteon 02-08-2024 Nursing Note Pt up and walking wi th this RN in room and out in devlin. Tolerated well. Normal [facility] Progress Noteon 02-08-2024 Progress Note Normal [facility] Progress Note Normal [facility] Progress Note Normal [facility] BASIC METABOLIC PANELon Anion gap [Moles/Vol] 2 mmol/L Low 3-13 [facility] Comment on above: Performed By: #### L [id number] ####Vp Medical: ROSALVA LOPEZ ([id number])[facility] ([facility])[address] [place] [address] Calcium [Mass/Vol] 8.6 mg/dL Normal 8.4-10.4 [facility] Comment on above: Performed By: #### L [id number] ####Vp Medical: ROSALVA LOPEZ ([id number])[facility] ([facility])[address] [place] [address] [place] Chloride [Moles/Vol] 100 mmol/L Normal 98-107 [facility] Comment on above: Performed By: #### L [id number] ####Vp Medical: ROSALVA LOPEZ ([id number])[facility] ([facility])[address] [place] [address] [place] CO2 [Moles/Vol] 36 mmol/L High 22-30 [facility] Comment on above: Performed By: #### L [id number] ####Vp Medical: ROSALVA LOPEZ ([id number])[facility] ([facility])[address] [place] [address] [place] Creatinine [Mass/Vol] 0.55 mg/dL Normal 0.52-1.04 [facility] Comment on above: Performed By: #### L [id number] ####Vp Medical: ROSALVA LOPEZ ([id number])[facility] ([facility])[address] [place] [address] [place] GLOMERULAR FILTRATION RATE ML/MIN/1.73 SQ M.PREDICTED >90.0 Normal >60.0 [facility] Comment on above: Result Comment: Calc ulation based on the Chronic Kidney Disease Epidemiology Collaboration (CKD-EPI) equation refit without adjustment for race Performed By: #### L [id number] ####Vp Medical: ROSALVA LOPEZ ([id number])[facility] ([facility])[address] [place] [address] Glucose [Mass/Vol] 83 mg/dL Normal 70-100 [facility] Comment on above: Performed By: #### L [id number] ####Vp Medical: ROSALVA LOPEZ ([id number])[facility])[address] [place] [address] Potassium [Moles/Vol] 3.3 mmol/L Low 3.5-5.1 [facility] Comment on above: Performed By: #### L [id number] ####Vp Medical: ROSALVA LOPEZ ([id number])[facility] ([facility])[address] [place] [address] Sodium [Moles/Vol] 138 mmol/L Normal 135-145 [facility] Comment on above: Performed By: #### L [id number] ####Vp Medical: ROSALVA LOPEZ ([id number])[facility])[address] [place] [address] Urea nitrogen [Mass/Vol] 17 mg/dL Normal 7-17 [facility] Comment on above: Performed By: #### L [id number] ####Vp Medical: ROSALVA LOPEZ ([id number])[facility])[address] [place] [address] BLOOD GAS, VENOUSon 02-07-20 24 Base excess Calc (BldV) [Moles/Vol] 10.6 mmol/L High -3.0-3.0 [facility] Comment on above: Performed By: #### L [id number] ####Vp Medical: ROSALVA LOPEZ ([id number])[facility] ([facility])[address] [place] [address] [place] CO2 [Moles/Vol] 38.4 mmol/L High 24.0-28.0 [facility] Comment on above: Performed By: #### L [id number] ####Vp Medical: ROSALVA LOPEZ ([id number])[facility])[address] [place] [address] HCO3 (Bld) [Moles/Vol] 36.7 mmol/L High 23.0-27.0 [facility] Comment on above: Performed By: #### L [id number] ####Vp Medical: ROSALVA LOPEZ ([id number])[facility] ([facility])[address] [place] [address] Hemoglobin (Bld) [Mass/Vol] 10.4 g/dL Normal Screen only [facility] Comment on above: Performed By: #### L [id number] ####Vp Medical: ROSALVA LOPEZ ([id number])[facility])[address] [place] [address] OXYGEN (MM HG) IN VENOUS BLOOD 37.1 mm Hg Normal [facility] Comment on above: Performed By: #### L [id number] ####Vp Medical: ROSALVA LOPEZ ([id number])[facility])[address] [place] [address] OXYGEN SATURATION (%) IN VENOUS BLOOD 62.2 % Normal [facility] Comment on above: Performed By: #### L [id number] ####Vp Medical: ROSALVA LOPEZ ([id number])[facility])[address] [place] [address] [place] PCO2, GÉNESIS 57.3 mm Hg High 40.0-55.0 [facility] Comment on above: Performed By: #### L [id number] ####Vp Medical: ROSALVA LOPEZ ([id number])[facility])[address] [place] [address] PH VENOUS 7.424 Normal 7.330-7.430 [facility] Comment on above: Performed By: #### L [id number] ####Vp Medical: ROSALVA [id number])[facility] ([facility])[address] [place] [address] SOURCE OF OXYGEN 30% Oxygen Normal [facility] Comment on above: Result Comment: RAMY Champion COMMENTS:Assessment of oxygenation is best done with an arterial blood gas determination. Reference ranges for pO2, bicarbonate, and base excess are for mixed venous blood. Specimens drawn from a peripheral vein will often have higher values. Performed By: #### L [id number] ####Vp Medical: ROSALVA LOPEZ ([id number])[facility] ([facility])[address] [place] [address] Basic metabolic 1998 panelon 02-07-2024 Anion gap [Moles/Vol] 2 mmol/L Low 3 - 13 mmol/L [facility] Calcium [Mass/Vol] 8.6 mg/dL 8.4 - 10. 4 mg/dL [facility] Chloride [Moles/Vol] 100 mmol/L 98 - 10 7 mmol/L [facility] CO2 [Moles/Vol] 36 mmol/L High 22 - 30 mmol/L [facility] Creatinine [Mass/Vol] 0.55 mg/dL 0.52 - 1.04 mg/dL [facility] GFR/1.73 sq M.predicted (S/P/Bld) [Vol rate/Area] - PINF [facility] Glucose [Mass/Vol] 83 mg/dL 70 - 100 mg/dL [facility] Interpretation and review of laboratory results Abnormal [facility] Potassium [Moles/Vol] 3.3 mmol/L Low 3.5 - 5.1 mmol/L [facility] Sodium [Moles/Vol] 138 mmol/L 135 - 145 mmol/L [facility] Urea nitrogen [Mass/Vol] 17 mg/dL 7 - 17 mg/dL [facility] CARECOORDon 02-07-2024 CARECOORD Normal [facility] CARECOORD Normal [facility] CBC W Auto Differential pane l (Bld)on 02-07-2024 Basophils (Bld) [#/Vol] 0.0 10*3/uL 0.0 - 0.2 10*3/uL [facility] Basophils/100 WBC (Bld) 0.3 % 0.0 - 2.0 % [facility] Eosinophils (Bld) [#/Vol] 0.1 10*3/uL 0.0 - 0.5 10*3/uL [facility] Eosinophils/100 WBC (Bld) 0.9 % 0.0 - 6.0 % [facility] Erythrocyte distribution width (RBC) [Ratio] 15.2 % High 11.5 - 15.0 % [facility] Hematocrit (Bld) [Volume fraction] 30.4 % Low 35.0 - 47.0 % [facility] Hemoglobin (Bld) [Mass/Vol] 9.3 g/dL Low 11.7 - 16.0 g/dL [facility] Immature granulocytes (Bld) [#/Vol] 0.2 10*3/uL High NINF - 0.1 10*3/uL [facility] Immature granulocytes/100 WBC (Bld) 1.9 % 0.0 - 2.0 % [facility] Interpretation and review of laboratory results Abnormal [facility] Lymphocytes (Bld) [#/Vol] 2.8 10*3/uL 1.0 - 4.3 10*3/uL [facility] Lymphocytes/100 WBC (Bld) 28.9 % 15.0 - 45.0 % [facility] MCH (RBC) [Entitic mass] 26.3 pg 26.0 - 34.0 pg [facility] MCHC (RBC) [Mass/Vol] 30.6 % 30.5 - 36.0 % [facility] MCV (RBC) [Entitic vol] 86.1 fL 77.0 - 99.0 fL [facility] Monocytes (Bld) [#/Vol] 0.9 10*3/uL 0.0 - 0.9 10*3/uL [facility] Monocytes/100 WBC (Bld) 9.1 % 5.0 - 13.0 % [facility] Neutrophils (Bld) [#/Vol] 5.7 10*3/uL 1.8 - 7.5 10*3/uL [facility] Neutrophils/100 WBC (Bld) 58.9 % 38.0 - 82.0 % [facility] Nucleated RBC/100 WBC (Bld) [Ratio] 0.0 % [facility] Platelet mean volume (Bld) [Entitic vol] 10.6 fL 9.0 - 12.7 fL [facility] Platelets (Bld) [#/Vol] 222 10*3/uL 140 - 440 10*3/uL [facility] RBC (Bld) [#/Vol] 3.53 10*6/uL Low 3.80 - 5.2 0 10*6/uL [facility] WBC (Bld) [#/Vol] 9.7 10*3/uL 3.6 - 10.7 10*3/uL [facility] CBC WITH AUTO DIFFERENTIALon 02-07-2024 Basophils (Bld) [#/Vol] 0.0 10*3/uL Normal 0.0-0.2 [facility] Comment on above: Performed By: #### L [id number] ####Vp Medical: ROSALVA LOPEZ ([id number])[facility] ([facility])[address] [place] [address] Basophils/100 WBC (Bld) 0.3 % Normal 0.0-2.0 [facility] Comment on above: Performed By: #### L [id number] ####Vp Medical: ROSALVA LOPEZ ([id number])[facility] ([facility])[address] [place] [address] Eosinophils (Bld) [#/Vol] 0.1 10*3/uL Normal 0.0-0.5 [facility] Comment on above: Performed By: #### L [id number] ####Vp Medical: ROSALVA LOPEZ ([id number])[facility] ([facility])[address] [place] [address] Eosinophils/100 WBC (Bld) 0.9 % Normal 0.0-6.0 [facility] Comment on above: Performed By: #### L [id number] ####Vp Medical: ROSALVA LOPEZ ([id number])[facility] ([facility])[address] [place] [address] Erythrocyte distribution width (RBC) [Ratio] 15.2 % High 11.5-15.0 [facility] Comment on above: Performed By: #### L [id number] ####Vp Medical: ROSALVA LOPEZ ([id number])[facility] ([facility])[address] [place] [address] Hematocrit (Bld) [Volume fraction] 30.4 % Low 35.0-47.0 [facility] Comment on above: Performed By: #### L [id number] ####Vp Medical: ROSALVA LOPEZ ([id number])[facility])[address] [place] [address] Hemoglobin (Bld) [Mass/Vol] 9.3 g/dL Low 11.7-16.0 [facility] Comment on above: Performed By: #### L [id number] ####Vp Medical: ROSALVA LOPEZ ([id number])[facility])[address] [place] [address] IMMATURE GRANS % 1.9 % Normal 0.0-2.0 [facility] Comment on above: Performed By: #### L [id number] ####Vp Medical: ROSALVA LOPEZ ([id number])[facility])[address] [place] [address] IMMATURE GRANS ABSOLUTE 0.2 10*3/uL High <0.1 [facility] Comment on above: Performed By: #### L [id number] ####Vp Medical: ROSALVA LOPEZ ([id number])[facility])[address] [place] [address] Lymphocytes (Bld) [#/Vol] 2.8 10*3/uL Normal 1.0-4.3 [facility] Comment on above: Performed By: #### L [id number] ####[facility]: ROSALVA LOPEZ ([id number])[facility])[address] [place] [address] Lymphocytes/100 WBC (Bld) 28.9 % Normal 15.0-45.0 [facility] Comment on above: Performed By: #### L [id number] ####[facility]: ROSALVA LOPEZ ([id number])[facility])[address] [place] [address] MCH (RBC) [Entitic mass] 26.3 pg Normal 26.0-34.0 [facility] Comment on above: Performed By: #### L [id number] ####[facility]: ROSALVA LOPEZ ([id number])[facility])[address] [place] [address] MCHC 30.6 % Normal 30.5-36.0 [facility] Comment on above: Performed By: #### L [id number] ####[facility]: ROSALVA LOPEZ ([id number])[facility])[address] [place] [address] MCV (RBC) [Entitic vol] 86.1 fL Normal 77.0-99.0 [facility] Comment on above: Performed By: #### L [id number] ####[facility]: ROSALVA LOPEZ ([id number])[facility])[address] [place] [address] Monocytes (Bld) [#/Vol] 0.9 10*3/uL Normal 0.0-0.9 [facility] Comment on above: Performed By: #### L [id number] ####[facility]: ROSALVA LOPEZ ([id number])[facility])[address] [place] [address] Monocytes/100 WBC (Bld) 9.1 % Normal 5.0-13.0 [facility] Comment on above: Performed By: #### L [id number] ####[facility]: ROSALVA LOPEZ ([id number])[facility])[address] [place] [address] NEUTROPHILS ABSOLUTE 5.7 10*3/uL Normal 1.8-7.5 [facility] Comment on above: Performed By: #### L [id number] ####[facility]: ROSALVA LOPEZ ([id number])[facility])[address] [place] [address] Neutrophils/100 WBC (Bld) 58.9 % Normal 38.0-82.0 [facility] Comment on above: Performed By: #### L [id number] ####[facility]: ROSALVA LOEPZ ([id number])[facility] ([facility])[address] [place] [address] NRBC 0.0 /100 WBCs Normal 0.0-2.0 [facility] Comment on above: Performed By: #### L [id number] ####[facility]: ROSALVA LOPEZ ([id number])[facility] ([facility])[address] [place] [address] Platelet mean volume (Bld) [Entitic vol] 10.6 fL Normal 9.0-12.7 [facility] Comment on above: Performed By: #### L [id number] ####[facility] Medical: ROSALVA LOPEZ ([id number])[facility] ([facility])[address] [place] [address] Platelets (Bld) [#/Vol] 222 10*3/uL Normal 140-440 [facility] Comment on above: Performed By: #### L [id number] ####Vp Medical: ROSALVA LOPEZ ([id number])[facility] ([facility])[address] [place] [address] RBC (Bld) [#/Vol] 3.53 10*6/uL Low 3.80-5.20 [facility] Comment on above: Performed By: #### L [id number] ####Vp Medical: ROSALVA LOPEZ ([id number])[facility])[address] [place] [address] WBC (Bld) [#/Vol] 9.7 10*3/uL Normal 3.6-10.7 [facility] Comment on above: Performed By: #### L [id number] ####Vp Medical: ROSALVA LOPEZ ([id number])[facility])[address] [place] [address] [place] IDNon 02-07-2024 IDN Normal [facility] Laboratory - Chemistry and C hemistry - challengeon 02-07-2024 Base excess Calc (BldV) [Moles/Vol] 10.6 mmol/L High -3.0 - 3.0 mmol/L [facility] CO2 (BldV) [Partial pressure] 57.3 mm[Hg] High [facility] CO2 [Moles/Vol] 38.4 mmol/L High 24.0 - 28.0 mmol/L [facility] HCO3 (Bld) [Moles/Vol] 36.7 mmol/L High 23.0 - 27.0 mmol/L [facility] Oxygen (BldV) [Partial pressure] 37.1 mm[Hg] mm Hg [facility] pH (BldV) 7.424 [pH] 7.330 - 7.430 [facility] Laboratory - Hematology and Cell countson 02-07-2024 Hemoglobin (Bld) [Mass/Vol] 10.4 g/dL Screen only [facility] No Panel Informationon 02-06 Interpretation and review of laboratory results Abnormal [facility] Source Of Oxygen 30% Oxygen [facility] Progress Noteon 02-07-2024 Progress Note Normal [facility] Progress Note Normal [facility] Progress Note Normal [facility] Progress Note Normal [facility] Progress Note Normal [facility] Vital signson 02-07-2024 Oxygen saturation in Venous blood 62.2 % [facility] XR CHEST 1 VIEWon 02-07-2024 XR CHEST 1 VIEW Normal [facility] XR Chest Single viewon 02-06 [facility] Radiology Study observation (narrative) [facility] XR Chest Single viewOrdered By: Leobardo Sloan on 02-07-2024 [facility] Work Phone: BASIC METABOLIC PANELon 08-0 Anion gap [Moles/Vol] 0 mmol/L Low 3-13 [facility] Comment on above: Performed By: #### L [id number] ####Vp Medical: ROSALVA LOPEZ ([id number])[facility])[address] [place] [address] [place] Calcium [Mass/Vol] 9.0 mg/dL Normal 8.4-10.4 [facility] Comment on above: Performed By: #### L [id number] ####Vp Medical: ROSALVA LOPEZ ([id number])[facility])[address] [place] [address] Chloride [Moles/Vol] 98 mmol/L Normal 98-107 [facility] Comment on above: Performed By: #### L [id number] ####Vp Medical: ROSALVA LOPEZ ([id number])[facility])[address] [place] [address] CO2 [Moles/Vol] 39 mmol/L High 22-30 [facility] Comment on above: Performed By: #### L [id number] ####Vp Medical: ROSALVA LOPEZ ([id number])[facility])[address] [place] [address] Creatinine [Mass/Vol] 0.58 mg/dL Normal 0.52-1.04 [facility] Comment on above: Performed By: #### L [id number] ####Vp Medical: ROSALVA LOPEZ ([id number])[facility])[address] [place] [address] GLOMERULAR FILTRATION RATE ML/MIN/1.73 SQ M.PREDICTED >90.0 Normal >60.0 [facility] Comment on above: Result Comment: Calc ulation based on the Chronic Kidney Disease Epidemiology Collaboration (CKD-EPI) equation refit without adjustment for race Performed By: #### L [id number] ####Vp Medical: ROSALVA LOPEZ ([id number])[address] Glucose [Mass/Vol] 90 mg/dL Normal 70-100 [facility] Comment on above: Performed By: #### L [id number] ####Vp Medical: ROSALVA LOPEZ ([id number])[facility])[address] [place] [address] Potassium [Moles/Vol] 3.1 mmol/L Low 3.5-5.1 [facility] Comment on above: Performed By: #### L [id number] ####Vp Medical: ROSALVA LOPEZ ([id number])[facility])[address] [place] [address] Sodium [Moles/Vol] 138 mmol/L Normal 135-145 [facility] Comment on above: Performed By: #### L [id number] ####Vp Medical: ROSALVA [id number])[facility])[address] [place] [address] [place] Urea nitrogen [Mass/Vol] 21 mg/dL High 7-17 [facility] Comment on above: Performed By: #### L [id number] ####Vp Medical: ROSALVA LOPEZ ([id number])[facility])[address] [place] [address] BLOOD GAS, VENOUSon 02-06-20 24 Base excess Calc (BldV) [Moles/Vol] 12.3 mmol/L High -3.0-3.0 [facility] Comment on above: Performed By: #### L [id number] ####Vp Medical: ROSALVA LOPEZ ([id number])[facility])[address] [place] [address] CO2 [Moles/Vol] 40.6 mmol/L High 24.0-28.0 [facility] Comment on above: Performed By: #### L [id number] ####Vp Medical: ROSALVA LOPEZ ([id number])[facility])[address] [place] [address] HCO3 (Bld) [Moles/Vol] 38.8 mmol/L High 23.0-27.0 [facility] Comment on above: Performed By: #### L [id number] ####Vp Medical: ROSALVA LOPEZ ([id number])[facility])[address] [place] [address] [place] Hemoglobin (Bld) [Mass/Vol] 11.3 g/dL Normal Screen only [facility] Comment on above: Performed By: #### L [id number] ####Vp Medical: ROSALVA LOPEZ ([id number])[facility])[address] [place] [address] OXYGEN (MM HG) IN VENOUS BLOOD 33.4 mm Hg Normal [facility] Comment on above: Performed By: #### L [id number] ####Vp Medical: ROSALVA LOPEZ ([id number])[facility])[address] [place] [address] OXYGEN SATURATION (%) IN VENOUS BLOOD 53.3 % Normal [facility] Comment on above: Performed By: #### L [id number] ####Vp Medical: ROSALVA LOPEZ ([id number])[facility])[address] [place] [address] PCO2, GÉNESIS 60.0 mm Hg High 40.0-55.0 [facility] Comment on above: Performed By: #### L [id number] ####Vp Medical: ROSALVA LOPEZ ([id number])[facility])[address] [place] [address] PH VENOUS 7.428 Normal 7.330-7.430 [facility] Comment on above: Performed By: #### L [id number] ####Vp Medical: ROSALVA LOPEZ ([id number])[facility])[address] [place] [address] SOURCE OF OXYGEN Normal [facility] Comment on above: Result Comment: 40% [id number] COMMENTS:Assessment of oxygenation is best done with an arterial blood gas determination. Reference ranges for pO2, bicarbonate, and base excess are for mixed venous blood. Specimens drawn from a peripheral vein will often have higher values. Performed By: #### L [id number] ####[facility] Medical: ROSALVA LOPEZ ([id number])[facility])[address] [place] [address] Basic metabolic 1998 panelon 02-06-2024 Anion gap [Moles/Vol] 0 mmol/L Low 3 - 13 mmol/L [facility] [employer] Calcium [Mass/Vol] 9.0 mg/dL 8.4 - 10. 4 mg/dL [facility] Chloride [Moles/Vol] 98 mmol/L 98 - 10 7 mmol/L [facility] [employer] CO2 [Moles/Vol] 39 mmol/L High 22 - 30 mmol/L [facility] Creatinine [Mass/Vol] 0.58 mg/dL 0.52 - 1.04 mg/dL [facility] GFR/1.73 sq M.predicted (S/P/Bld) [Vol rate/Area] - PINF [facility] Glucose [Mass/Vol] 90 mg/dL 70 - 100 mg/dL [facility] Interpretation and review of laboratory results Abnormal [facility] Potassium [Moles/Vol] 3.1 mmol/L Low 3.5 - 5.1 mmol/L [facility] Sodium [Moles/Vol] 138 mmol/L 135 - 145 mmol/L [facility] Urea nitrogen [Mass/Vol] 21 mg/dL High 7 - 17 mg/dL [facility] CBC W Auto Differential pane l (Bld)on 02-06-2024 Basophils (Bld) [#/Vol] 0.0 10*3/uL 0.0 - 0.2 10*3/uL [facility] Basophils/100 WBC (Bld) 0.3 % 0.0 - 2.0 % [facility] Eosinophils (Bld) [#/Vol] 0.1 10*3/uL 0.0 - 0.5 10*3/uL [facility] Eosinophils/100 WBC (Bld) 0.8 % 0.0 - 6.0 % [facility] Erythrocyte distribution width (RBC) [Ratio] 14.9 % 11.5 - 15.0 % [facility] Hematocrit (Bld) [Volume fraction] 32.5 % Low 35.0 - 47.0 % [facility] Hemoglobin (Bld) [Mass/Vol] 10.1 g/dL Low 11.7 - 16.0 g/dL [facility] Immature granulocytes (Bld) [#/Vol] 0.2 10*3/uL High NINF - 0.1 10*3/uL [facility] Immature granulocytes/100 WBC (Bld) 1.9 % 0.0 - 2.0 % [facility] Interpretation and review of laboratory results Abnormal [facility] Lymphocytes (Bld) [#/Vol] 2.7 10*3/uL 1.0 - 4.3 10*3/uL [facility] Lymphocytes/100 WBC (Bld) 24.8 % 15.0 - 45.0 % [facility] MCH (RBC) [Entitic mass] 26.4 pg 26.0 - 34.0 pg [facility] MCHC (RBC) [Mass/Vol] 31.1 % 30.5 - 36.0 % [facility] MCV (RBC) [Entitic vol] 85.1 fL 77.0 - 99.0 fL [facility] Monocytes (Bld) [#/Vol] 1.0 10*3/uL High 0.0 - 0.9 10*3/uL [facility] Monocytes/100 WBC (Bld) 9.1 % 5.0 - 13.0 % [facility] Neutrophils (Bld) [#/Vol] 7.0 10*3/uL 1.8 - 7.5 10*3/uL [facility] Neutrophils/100 WBC (Bld) 63.1 % 38.0 - 82.0 % [facility] Nucleated RBC/100 WBC (Bld) [Ratio] 0.0 % [facility] Platelet mean volume (Bld) [Entitic vol] 10.7 fL 9.0 - 12.7 fL [facility] Platelets (Bld) [#/Vol] 225 10*3/uL 140 - 440 10*3/uL [facility] RBC (Bld) [#/Vol] 3.82 10*6/uL 3.80 - 5.2 0 10*6/uL [facility] WBC (Bld) [#/Vol] 11.0 10*3/uL High 3.6 - 10.7 10*3/uL [facility] CBC WITH AUTO DIFFERENTIALon 02-06-2024 Basophils (Bld) [#/Vol] 0.0 10*3/uL Normal 0.0-0.2 [facility] Comment on above: Performed By: #### L [id number] ####Vp Medical: ROSALVA LOPEZ ([id number])[facility])[address] [place] [address] Basophils/100 WBC (Bld) 0.3 % Normal 0.0-2.0 [facility] Comment on above: Performed By: #### L [id number] ####Vp Medical: ROSALVA LOPEZ ([id number])[facility])[address] [place] [address] Eosinophils (Bld) [#/Vol] 0.1 10*3/uL Normal 0.0-0.5 [facility] Comment on above: Performed By: #### L [id number] ####Vp Medical: ROSALVA [id number])[facility] Eosinophils/100 WBC (Bld) 0.8 % Normal 0.0-6.0 [facility] Comment on above: Performed By: #### L [id number] ####Vp Medical: ROSALVA LOPEZ ([id number])[facility])[address] [place] [address] Erythrocyte distribution width (RBC) [Ratio] 14.9 % Normal 11.5-15.0 [facility] Comment on above: Performed By: #### L [id number] ####Vp Medical: ROSALVA LOPEZ ([id number])[address] Hematocrit (Bld) [Volume fraction] 32.5 % Low 35.0-47.0 [facility] Comment on above: Performed By: #### L [id number] ####Vp Medical: ROSALVA LOPEZ ([id number])[address] Hemoglobin (Bld) [Mass/Vol] 10.1 g/dL Low 11.7-16.0 [facility] Comment on above: Performed By: #### L [id number] ####Vp Medical: ROSALVA LOPEZ ([id number])[address] IMMATURE GRANS % 1.9 % Normal 0.0-2.0 [facility] Comment on above: Performed By: #### L [id number] ####Vp Medical: ROSALVA LOPEZ ([id number])[address] IMMATURE GRANS ABSOLUTE 0.2 10*3/uL High <0.1 [facility] Comment on above: Performed By: #### L [id number] ####Vp Medical: ROSALVA LOPEZ ([id number])[address] Lymphocytes (Bld) [#/Vol] 2.7 10*3/uL Normal 1.0-4.3 [facility] Comment on above: Performed By: #### L [id number] ####Vp Medical: ROSALVA LOPEZ ([id number])[facility])[address] [place] [address] Lymphocytes/100 WBC (Bld) 24.8 % Normal 15.0-45.0 [facility] Comment on above: Performed By: #### L [id number] ####Vp Medical: ROSALVA LOPEZ ([id number])[facility])[address] [place] [address] MCH (RBC) [Entitic mass] 26.4 pg Normal 26.0-34.0 [facility] Comment on above: Performed By: #### L [id number] ####Vp Medical: ROSALVA LOPEZ ([id number])[facility])[address] [place] [address] MCHC 31.1 % Normal 30.5-36.0 [facility] Comment on above: Performed By: #### L [id number] ####Vp Medical: ROSALVA LOPEZ ([id number])[facility])[address] [place] [address] MCV (RBC) [Entitic vol] 85.1 fL Normal 77.0-99.0 [facility] Comment on above: Performed By: #### L [id number] ####Vp Medical: ROSALVA LOPEZ ([id number])[facility])[address] [place] [address] [place] Monocytes (Bld) [#/Vol] 1.0 10*3/uL High 0.0-0.9 [facility] Comment on above: Performed By: #### L [id number] ####Vp Medical: ROSALVA LOPEZ ([id number])[facility])[address] [place] [address] Monocytes/100 WBC (Bld) 9.1 % Normal 5.0-13.0 [facility] Comment on above: Performed By: #### L [id number] ####Vp Medical: ROSALVA LOPEZ ([id number])[facility] [place] [address] NEUTROPHILS ABSOLUTE 7.0 10*3/uL Normal 1.8-7.5 [facility] Comment on above: Performed By: #### L [id number] ####Vp Medical: ROSALVA LOPEZ ([id number])[facility])[address] [place] [address] Neutrophils/100 WBC (Bld) 63.1 % Normal 38.0-82.0 [facility] Comment on above: Performed By: #### L [id number] ####Vp Medical: ROSALVA LOPEZ ([id number])[facility])[address] [place] [address] NRBC 0.0 /100 WBCs Normal 0.0-2.0 [facility] Comment on above: Performed By: #### L [id number] ####Vp Medical: ROSALVA LOPEZ ([id number])[facility])[address] [place] [address] Platelet mean volume (Bld) [Entitic vol] 10.7 fL Normal 9.0-12.7 [facility] Comment on above: Performed By: #### L [id number] ####Vp Medical: ROSALVA LOPEZ ([id number])[facility])[address] [place] [address] Platelets (Bld) [#/Vol] 225 10*3/uL Normal 140-440 [facility] Comment on above: Performed By: #### L [id number] ####Vp Medical: ROSALVA LOPEZ ([id number])[facility])[address] [place] [address] RBC (Bld) [#/Vol] 3.82 10*6/uL Normal 3.80-5.20 [facility] Comment on above: Performed By: #### L [id number] ####Vp Medical: ROSALVA LOPEZ ([id number])[facility] ([facility])[address] [place] [address] [place] WBC (Bld) [#/Vol] 11.0 10*3/uL High 3.6-10.7 [facility] Comment on above: Performed By: #### L [id number] ####Vp Medical: ROSALVA LOPEZ ([id number])[facility] [place] [address] ECG 12-LEADon 02-06-2024 ECG 12-LEAD IMPRESSION: Sinus tachycardia Probable left atrial enlargement Inferior infarct, age indeterminate Electronically Signed On 02-06-2024 11:17:34 EDT by Mirta Figueredo Normal [facility] IDNon 02-06-2024 IDN Normal [facility] IDN Normal [facility] Laboratory - Chemistry and C hemistry - challengeon 02-06-2024 Base excess Calc (BldV) [Moles/Vol] 12.3 mmol/L High -3.0 - 3.0 mmol/L [facility] CO2 (BldV) [Partial pressure] 60.0 mm[Hg] High [facility] CO2 [Moles/Vol] 40.6 mmol/L High 24.0 - 28.0 mmol/L [facility] HCO3 (Bld) [Moles/Vol] 38.8 mmol/L High 23.0 - 27.0 mmol/L [facility] Oxygen (BldV) [Partial pressure] 33.4 mm[Hg] mm Hg [facility] pH (BldV) 7.428 [pH] 7.330 - 7.430 [facility] Laboratory - Hematology and Cell countson 02-06-2024 Hemoglobin (Bld) [Mass/Vol] 11.3 g/dL Screen only [facility] [employer] No Panel InformationOrdered By: Mirta Figueredo on 02-06-2024 P [place] 81 degrees [facility]: NV Interval 104 ms [facility] Work Phone: QRS [place] 42 degrees [facility] Work Phone: QRSD Interval 84 ms [facility] Work Phone: QT Interval 316 ms [employer] Work Phone: QTC Interval 447 ms [facility] Work Phone: T Wave [place] -55 degrees [facility] [employer] Work Phone: [facility] [employer] Work Phone: No Panel Informationon 02-05 CV EPIPHANY [facility] Interpretation and review of laboratory results Abnormal [facility] Source Of Oxygen [facility] Progress Noteon 02-06-2024 Progress Note Patient placed on fu ll face mask NIV through the 980 for HS with trach capped, per Dr Dougherty. Normal [facility] Progress Note Normal [facility] Progress Note Normal [facility] Progress Note Normal [facility] Progress Note Normal [facility] Vital signsOrdered By: Mirta Figueredo on 02-06-2024 Heart rate 120 /min bpm [facility] Work Phone: Vital signson 02-06-2024 Oxygen saturation in Venous blood 53.3 % [facility] BASIC METABOLIC PANELon Anion gap [Moles/Vol] 4 mmol/L Normal 3-13 [facility] Comment on above: Performed By: #### L [id number] ####[employer]: ROSALVA LOPEZ ([id number])[address] Calcium [Mass/Vol] 9.2 mg/dL Normal 8.4-10.4 [facility] Comment on above: Performed By: #### L [id number] ####[employer]: ROSALVA LOPEZ ([id number])[facility])[address] [place] [address] [place] Chloride [Moles/Vol] 96 mmol/L Low 98-107 [facility] Comment on above: Performed By: #### L AB15 ####Vp Medical: ROSALVA LOPEZ ([id number])[facility])[address] [place] [address] [place] CO2 [Moles/Vol] 38 mmol/L High 22-30 [facility] Comment on above: Performed By: #### L AB15 ####Vp [employer]: ROSALVA LOPEZ ([id number])[facility] ([facility] Creatinine [Mass/Vol] 0.54 mg/dL Normal 0.52-1.04 [facility] Comment on above: Performed By: #### L AB15 ####Vp Medical: ROSALVA LOPEZ ([id number])[facility])[address] [place] [address] GLOMERULAR FILTRATION RATE ML/MIN/1.73 SQ M.PREDICTED >90.0 Normal >60.0 [facility] Comment on above: Result Comment: Calc ulation based on the Chronic Kidney Disease Epidemiology Collaboration (CKD-EPI) equation refit without adjustment for race Performed By: #### L AB15 ####Vp [employer]: ROSALVA LOPEZ ([id number])[facility])[address] [place] [address] Glucose [Mass/Vol] 95 mg/dL Normal 70-100 [facility] Comment on above: Performed By: #### L AB15 ####Vp Medical: ROSALVA LOPEZ ([id number])[facility])[address] [place] [address] Potassium [Moles/Vol] 3.3 mmol/L Low 3.5-5.1 [facility] Comment on above: Performed By: #### L AB15 ####Vp Medical: ROSALVA LOPEZ ([id number])[facility])[address] [place] [address] Sodium [Moles/Vol] 138 mmol/L Normal 135-145 [facility] Comment on above: Performed By: #### L AB15 ####Vp Medical: ROSALVA LOPEZ ([id number])[facility])[address] [place] [address] Urea nitrogen [Mass/Vol] 19 mg/dL High 7-17 [facility] Comment on above: Performed By: #### L AB15 ####Vp Medical: ROSALVA LOPEZ ([id number])[facility])[address] [place] [address] BLOOD GAS, VENOUSon 02-05-20 24 Base excess Calc (BldV) [Moles/Vol] 13.6 mmol/L High -3.0-3.0 [facility] Comment on above: Performed By: #### L [id number] ####Vp Medical: ROSALVA LOPEZ ([id number])[facility])[address] [place] [address] CO2 [Moles/Vol] 42.5 mmol/L High 24.0-28.0 [facility] Comment on above: Performed By: #### L [id number] ####Vp Medical: ROSALVA LOPEZ ([id number])[facility])[address] [place] [address] HCO3 (Bld) [Moles/Vol] 40.5 mmol/L High 23.0-27.0 [facility] Comment on above: Performed By: #### L [id number] ####Vp Medical: ROSALVA LOPEZ ([id number])[facility])[address] [place] [address] Hemoglobin (Bld) [Mass/Vol] 12.0 g/dL Normal Screen only [facility] Comment on above: Performed By: #### L [id number] ####[facility]: ROSALVA LOPEZ ([id number])[facility])[address] [place] [address] OXYGEN (MM HG) IN VENOUS BLOOD 35.8 mm Hg Normal [facility] Comment on above: Performed By: #### L [id number] ####[facility]: ROSALVA LOPEZ ([id number])[facility])[address] [place] [address] OXYGEN SATURATION (%) IN VENOUS BLOOD 60.9 % Normal [facility] Comment on above: Performed By: #### L [id number] ####[facility]: ROSALVA LOPEZ ([id number])[facility])[address] [place] [address] [place] PCO2, GÉNESIS 63.2 mm Hg High 40.0-55.0 [facility] Comment on above: Performed By: #### L [id number] ####[facility]: ROSALVA [id number])[facility])[address] [place] [address] PH VENOUS 7.425 Normal 7.330-7.430 [facility] Comment on above: Performed By: #### L [id number] ####[facility]: ROSALVA LOPEZ ([id number])[facility] ([facility])[address] [place] [address] SOURCE OF OXYGEN Normal [facility] Comment on above: Result Comment: N/aO RDER COMMENTS:Assessment of oxygenation is best done with an arterial blood gas determination. Reference ranges for pO2, bicarbonate, and base excess are for mixed venous blood. Specimens drawn from a peripheral vein will often have higher values. Performed By: #### L [id number] ####[facility]: ROSALVA LOPEZ ([id number])[facility])[address] [place] [address] Basic metabolic 1998 panelon 02-05-2024 Anion gap [Moles/Vol] 4 mmol/L 3 - 13 mmol/L [facility] Calcium [Mass/Vol] 9.2 mg/dL 8.4 - 10. 4 mg/dL [facility] Chloride [Moles/Vol] 96 mmol/L Low 98 - 10 7 mmol/L [facility] CO2 [Moles/Vol] 38 mmol/L High 22 - 30 mmol/L [facility] Creatinine [Mass/Vol] 0.54 mg/dL 0.52 - 1.04 mg/dL [facility] GFR/1.73 sq M.predicted (S/P/Bld) [Vol rate/Area] - PINF [facility] Glucose [Mass/Vol] 95 mg/dL 70 - 100 mg/dL [facility] Interpretation and review of laboratory results Abnormal [facility] Potassium [Moles/Vol] 3.3 mmol/L Low 3.5 - 5.1 mmol/L [facility] Sodium [Moles/Vol] 138 mmol/L 135 - 145 mmol/L [facility] Urea nitrogen [Mass/Vol] 19 mg/dL High 7 - 17 mg/dL [facility] CBC W Auto Differential pane l (Bld)Ordered By: Booker Pro on 02-05-2024 Basophils (Bld) [#/Vol] 0.0 10*3/uL 0.0 - 0.2 10*3/uL [facility] Basophils/100 WBC (Bld) 0.2 % 0.0 - 2.0 % [facility] Eosinophils (Bld) [#/Vol] 0.0 10*3/uL 0.0 - 0.5 10*3/uL [facility] Eosinophils/100 WBC (Bld) 0.4 % 0.0 - 6.0 % [facility] Erythrocyte distribution width (RBC) [Ratio] 14.6 % 11.5 - 15.0 % [facility] Hematocrit (Bld) [Volume fraction] 33.9 % Low 35.0 - 47.0 % [facility] Hemoglobin (Bld) [Mass/Vol] 10.5 g/dL Low 11.7 - 16.0 g/dL [facility] Immature granulocytes (Bld) [#/Vol] 0.2 10*3/uL High NINF - 0.1 10*3/uL [facility] Immature granulocytes/100 WBC (Bld) 1.8 % 0.0 - 2.0 % [facility] Interpretation and review of laboratory results Abnormal [facility] Lymphocytes (Bld) [#/Vol] 2.4 10*3/uL 1.0 - 4.3 10*3/uL [facility] Lymphocytes/100 WBC (Bld) 21.2 % 15.0 - 45.0 % [facility] MCH (RBC) [Entitic mass] 26.7 pg 26.0 - 34.0 pg [facility] MCHC (RBC) [Mass/Vol] 31.0 % 30.5 - 36.0 % [facility] MCV (RBC) [Entitic vol] 86.3 fL 77.0 - 99.0 fL [facility] Monocytes (Bld) [#/Vol] 1.2 10*3/uL High 0.0 - 0.9 10*3/uL [facility] Monocytes/100 WBC (Bld) 10.8 % 5.0 - 13.0 % [facility] Neutrophils (Bld) [#/Vol] 7.4 10*3/uL 1.8 - 7.5 10*3/uL [facility] Neutrophils/100 WBC (Bld) 65.6 % 38.0 - 82.0 % [facility] Nucleated RBC/100 WBC (Bld) [Ratio] 0.0 % [facility] Platelet mean volume (Bld) [Entitic vol] 10.7 fL 9.0 - 12.7 fL [facility] Platelets (Bld) [#/Vol] 213 10*3/uL 140 - 440 10*3/uL [facility] RBC (Bld) [#/Vol] 3.93 10*6/uL 3.80 - 5.2 0 10*6/uL [facility] WBC (Bld) [#/Vol] 11.3 10*3/uL High 3.6 - 10.7 10*3/uL [facility] CBC WITH AUTO DIFFERENTIALon 02-05-2024 Basophils (Bld) [#/Vol] 0.0 10*3/uL Normal 0.0-0.2 [facility] Comment on above: Performed By: #### L [id number] ####Vp Medical: ROSALVA LOPEZ ([id number])[facility])[address] [place] [address] Basophils/100 WBC (Bld) 0.2 % Normal 0.0-2.0 [facility] Comment on above: Performed By: #### L [id number] ####Vp Medical: ROSALVA LOPEZ ([id number])[facility])[address] [place] [address] Eosinophils (Bld) [#/Vol] 0.0 10*3/uL Normal 0.0-0.5 [facility] Comment on above: Performed By: #### L [id number] ####Vp Medical: ROSALVA LOPEZ ([id number])[facility])[address] [place] [address] Eosinophils/100 WBC (Bld) 0.4 % Normal 0.0-6.0 [facility] Comment on above: Performed By: #### L [id number] ####Vp Medical: ROSALVA LOPEZ ([id number])[facility])[address] [place] [address] Erythrocyte distribution width (RBC) [Ratio] 14.6 % Normal 11.5-15.0 [facility] Comment on above: Performed By: #### L [id number] ####Vp Medical: ROSALVA LOPEZ ([id number])[facility])[address] [place] [address] Hematocrit (Bld) [Volume fraction] 33.9 % Low 35.0-47.0 [facility] Comment on above: Performed By: #### L [id number] ####Vp Medical: ROSALVA LOPEZ ([id number])[facility])[address] [place] [address] Hemoglobin (Bld) [Mass/Vol] 10.5 g/dL Low 11.7-16.0 [facility] Comment on above: Performed By: #### L [id number] ####Vp Medical: ROSALVA LOPEZ ([id number])[facility])[address] [place] [address] IMMATURE GRANS % 1.8 % Normal 0.0-2.0 [facility] Comment on above: Performed By: #### L [id number] ####[facility] Medical: ROSALVA LOPEZ ([id number])[address] IMMATURE GRANS ABSOLUTE 0.2 10*3/uL High <0.1 [facility] Comment on above: Performed By: #### L [id number] ####Vp Medical: ROSALAV LOPEZ ([id number])[facility])[address] [place] [address] Lymphocytes (Bld) [#/Vol] 2.4 10*3/uL Normal 1.0-4.3 [facility] Comment on above: Performed By: #### L [id number] ####[facility] Medical: ROSALVA LOPEZ ([id number])[address] Lymphocytes/100 WBC (Bld) 21.2 % Normal 15.0-45.0 [facility] Comment on above: Performed By: #### L [id number] ####Vp Medical: ROSALVA [id number])[facility] ([facility])[address] [place] [address] MCH (RBC) [Entitic mass] 26.7 pg Normal 26.0-34.0 [facility] Comment on above: Performed By: #### L [id number] ####Vp Medical: ROSALVA LOPEZ ([id number])[facility])[address] [place] [address] MCHC 31.0 % Normal 30.5-36.0 [facility] Comment on above: Performed By: #### L [id number] ####Vp Medical: ROSALVA LOPEZ ([id number])[facility])[address] [place] [address] MCV (RBC) [Entitic vol] 86.3 fL Normal 77.0-99.0 [facility] Comment on above: Performed By: #### L [id number] ####Vp Medical: ROSALVA LOPEZ ([id number])[facility] ([facility])[address] [place] [address] Monocytes (Bld) [#/Vol] 1.2 10*3/uL High 0.0-0.9 [facility] Comment on above: Performed By: #### L [id number] ####Vp Medical: ROSALVA LOPEZ ([id number])[facility] ([facility])[address] [place] [address] Monocytes/100 WBC (Bld) 10.8 % Normal 5.0-13.0 [facility] Comment on above: Performed By: #### L [id number] ####Vp Medical: ROSALVA LOPEZ ([id number])[facility] ([facility])[address] [place] [address] NEUTROPHILS ABSOLUTE 7.4 10*3/uL Normal 1.8-7.5 [facility] Comment on above: Performed By: #### L [id number] ####Vp Medical: ROSALVA LOPEZ ([id number])[facility])[address] [place] [address] Neutrophils/100 WBC (Bld) 65.6 % Normal 38.0-82.0 [facility] Comment on above: Performed By: #### L [id number] ####Vp Medical: ROSALVA LOPEZ ([id number])[facility])[address] [place] [address] NRBC 0.0 /100 WBCs Normal 0.0-2.0 [facility] Comment on above: Performed By: #### L [id number] ####V[facility] Medical: ROSALVA LOPEZ ([id number])[facility] ([facility])[address] [place] [address] Platelet mean volume (Bld) [Entitic vol] 10.7 fL Normal 9.0-12.7 [facility] Comment on above: Performed By: #### L [id number] ####Vp Medical: ROSALVA LOPEZ ([id number])[facility])[address] [place] [address] Platelets (Bld) [#/Vol] 213 10*3/uL Normal 140-440 [facility] Comment on above: Performed By: #### L [id number] ####Vp Medical: ROSALVA LOPEZ ([id number])[facility])[address] [place] [address] RBC (Bld) [#/Vol] 3.93 10*6/uL Normal 3.80-5.20 [facility] Comment on above: Performed By: #### L [id number] ####Vp Medical: ROSALVA LOPEZ ([id number])[facility])[address] [place] [address] WBC (Bld) [#/Vol] 11.3 10*3/uL High 3.6-10.7 [facility] Comment on above: Performed By: #### L [id number] ####Vp Medical: ROSALVA LOPEZ ([id number])[facility])[address] [place] [address] Consulton 02-05-2024 Consult Normal [facility] Laboratory - Chemistry and C hemistry - challengeOrdered By: Lu Pederson on 02-05-2024 Base excess Calc (BldV) [Moles/Vol] 13.6 mmol/L High -3.0 - 3.0 mmol/L [facility] CO2 (BldV) [Partial pressure] 63.2 mm[Hg] High [facility] CO2 [Moles/Vol] 42.5 mmol/L High 24.0 - 28.0 mmol/L [facility] HCO3 (Bld) [Moles/Vol] 40.5 mmol/L High 23.0 - 27.0 mmol/L [facility] Oxygen (BldV) [Partial pressure] 35.8 mm[Hg] mm Hg [facility] pH (BldV) 7.425 [pH] 7.330 - 7.430 [facility] Laboratory - Hematology and Cell countsOrdered By: Lu Pederson on 02-05-2024 Hemoglobin (Bld) [Mass/Vol] 12.0 g/dL Screen only [facility] No Panel InformationOrdered By: Lu Pederson on 02-05-2024 Interpretation and review of laboratory results Abnormal [facility] Source Of Oxygen [facility] Progress Noteon 02-05-2024 Progress Note Normal [facility] Progress Note Normal [facility] Vital signsOrdered By: Elsa Pederson on 02-05-2024 Oxygen saturation in Venous blood 60.9 % [facility] BASIC METABOLIC PANELon 08 Anion gap [Moles/Vol] 4 mmol/L Normal 3-13 [facility] Comment on above: Performed By: #### L [id number] ####Vp Medical: ROSALVA LOPEZ ([id number])[facility] ([facility])[address] [place] [address] Calcium [Mass/Vol] 8.9 mg/dL Normal 8.4-10.4 [facility] Comment on above: Performed By: #### L [id number] ####Vp Medical: ROSALVA LOPEZ ([id number])[facility] ([facility])[address] [place] [address] Chloride [Moles/Vol] 99 mmol/L Normal 98-107 [facility] Comment on above: Performed By: #### L [id number] ####Vp Medical: ROSALVA LOPEZ ([id number])[facility] ([facility])[address] [place] [address] [place] CO2 [Moles/Vol] 35 mmol/L High 22-30 [facility] Comment on above: Performed By: #### L [id number] ####Vp Medical: ROSALVA LOPEZ ([id number])[facility])[address] [place] [address] Creatinine [Mass/Vol] 0.54 mg/dL Normal 0.52-1.04 [facility] Comment on above: Performed By: #### L [id number] ####Vp Medical: ROSALVA LOPEZ ([id number])[facility] ([facility])[address] [place] [address] GLOMERULAR FILTRATION RATE ML/MIN/1.73 SQ M.PREDICTED >90.0 Normal >60.0 [facility] Comment on above: Result Comment: Calc ulation based on the Chronic Kidney Disease Epidemiology Collaboration (CKD-EPI) equation refit without adjustment for race Performed By: #### L [id number] ####Vp Medical: ROSALVA LOPEZ ([id number])[facility] ([facility])[address] [place] [address] Glucose [Mass/Vol] 99 mg/dL Normal 70-100 [facility] Comment on above: Performed By: #### L [id number] ####Vp Medical: ROSALVA LOPEZ ([id number])[facility] ([facility])[address] [place] [address] [place] Potassium [Moles/Vol] 3.0 mmol/L Low 3.5-5.1 [facility] Comment on above: Performed By: #### L [id number] ####Vp Medical: ROSALVA LOPEZ ([id number])[facility] ([facility])[address] [place] [address] [place] Sodium [Moles/Vol] 139 mmol/L Normal 135-145 [facility] Comment on above: Performed By: #### L [id number] ####Vp Medical: ROSALVA LOPEZ ([id number])[facility] ([facility])[address] [place] [address] Urea nitrogen [Mass/Vol] 23 mg/dL High 7-17 [facility] Comment on above: Performed By: #### L [id number] ####Vp Medical: ROSALVA LOPEZ ([id number])[facility])[address] [place] [address] BLOOD GAS, VENOUSon 02-04-20 Base excess Calc (BldV) [Moles/Vol] 11.7 mmol/L High -3.0-3.0 [facility] Comment on above: Performed By: #### L [id number] ####Vp Medical: ROSALVA LOPEZ ([id number])[facility])[address] [place] [address] CO2 [Moles/Vol] 39.2 mmol/L High 24.0-28.0 [facility] Comment on above: Performed By: #### L [id number] ####Vp Medical: ROSALVA LOPEZ ([id number])[facility])[address] [place] [address] HCO3 (Bld) [Moles/Vol] 37.5 mmol/L High 23.0-27.0 [facility] Comment on above: Performed By: #### L [id number] ####Vp Medical: ROSALVA LOPEZ ([id number])[facility])[address] [place] [address] Hemoglobin (Bld) [Mass/Vol] 11.1 g/dL Normal Screen only [facility] Comment on above: Performed By: #### L [id number] ####Vp Medical: ROSALVA LOPEZ ([id number])[facility])[address] [place] [address] [place] OXYGEN (MM HG) IN VENOUS BLOOD 34.0 mm Hg Normal [facility] Comment on above: Performed By: #### L [id number] ####Vp Medical: ROSALVA LOPEZ ([id number])[facility])[address] [place] [address] OXYGEN SATURATION (%) IN VENOUS BLOOD 61.1 % Normal [facility] Comment on above: Performed By: #### L [id number] ####Vp Medical: ROSALVA LOPEZ ([id number])[facility])[address] [place] [address] PCO2, GÉNESIS 54.9 mm Hg Normal 40.0-55.0 [facility] Comment on above: Performed By: #### L [id number] ####Vp Medical: ROSALVA LOPEZ ([id number])[facility])[address] [place] [address] PH VENOUS 7.452 High 7.330-7.430 [facility] Comment on above: Performed By: #### L [id number] ####Vp Medical: ROSALVA LOPEZ ([id number])[facility])[address] [place] [address] SOURCE OF OXYGEN No data Normal [facility] Comment on above: Result Comment: RAMY Champion COMMENTS:Assessment of oxygenation is best done with an arterial blood gas determination. Reference ranges for pO2, bicarbonate, and base excess are for mixed venous blood. Specimens drawn from a peripheral vein will often have higher values. Performed By: #### L [id number] ####Vp Medical: ROSALVA LOPEZ ([id number])[facility])[address] [place] [address] Basic metabolic 1998 panelon 02-04-2024 Anion gap [Moles/Vol] 4 mmol/L 3 - 13 mmol/L [facility] Calcium [Mass/Vol] 8.9 mg/dL 8.4 - 10. 4 mg/dL [facility] Chloride [Moles/Vol] 99 mmol/L 98 - 10 7 mmol/L [facility] CO2 [Moles/Vol] 35 mmol/L High 22 - 30 mmol/L [facility] Creatinine [Mass/Vol] 0.54 mg/dL 0.52 - 1.04 mg/dL [facility] GFR/1.73 sq M.predicted (S/P/Bld) [Vol rate/Area] - PINF [facility] Glucose [Mass/Vol] 99 mg/dL 70 - 100 mg/dL [facility] Interpretation and review of laboratory results Abnormal [facility] Potassium [Moles/Vol] 3.0 mmol/L Low 3.5 - 5.1 mmol/L [facility] Sodium [Moles/Vol] 139 mmol/L 135 - 145 mmol/L [facility] Urea nitrogen [Mass/Vol] 23 mg/dL High 7 - 17 mg/dL [facility] CARECOORDon 02-04-2024 CARECOORD Normal [facility] CBC W Auto Differential pane l (Bld)on 02-04-2024 Basophils (Bld) [#/Vol] 0.0 10*3/uL 0.0 - 0.2 10*3/uL [facility] Basophils/100 WBC (Bld) 0.2 % 0.0 - 2.0 % [facility] Eosinophils (Bld) [#/Vol] 0.0 10*3/uL 0.0 - 0.5 10*3/uL [facility] Eosinophils/100 WBC (Bld) 0.1 % 0.0 - 6.0 % [facility] Erythrocyte distribution width (RBC) [Ratio] 14.4 % 11.5 - 15.0 % [facility] Hematocrit (Bld) [Volume fraction] 30.2 % Low 35.0 - 47.0 % [facility] Hemoglobin (Bld) [Mass/Vol] 9.4 g/dL Low 11.7 - 16.0 g/dL [facility] Immature granulocytes (Bld) [#/Vol] 0.1 10*3/uL High NINF - 0.1 10*3/uL [facility] Immature granulocytes/100 WBC (Bld) 0.9 % 0.0 - 2.0 % [facility] Interpretation and review of laboratory results Abnormal [facility] Lymphocytes (Bld) [#/Vol] 1.5 10*3/uL 1.0 - 4.3 10*3/uL [facility] Lymphocytes/100 WBC (Bld) 13.5 % Low 15.0 - 45.0 % [facility] MCH (RBC) [Entitic mass] 26.5 pg 26.0 - 34.0 pg [facility] MCHC (RBC) [Mass/Vol] 31.1 % 30.5 - 36.0 % [facility] MCV (RBC) [Entitic vol] 85.1 fL 77.0 - 99.0 fL [facility] Monocytes (Bld) [#/Vol] 1.2 10*3/uL High 0.0 - 0.9 10*3/uL [facility] Monocytes/100 WBC (Bld) 10.2 % 5.0 - 13.0 % [facility] Neutrophils (Bld) [#/Vol] 8.5 10*3/uL High 1.8 - 7.5 10*3/uL [facility] Neutrophils/100 WBC (Bld) 75.1 % 38.0 - 82.0 % [facility] Nucleated RBC/100 WBC (Bld) [Ratio] 0.0 % [facility] Platelet mean volume (Bld) [Entitic vol] 11.2 fL 9.0 - 12.7 fL [facility] Platelets (Bld) [#/Vol] 182 10*3/uL 140 - 440 10*3/uL [facility] RBC (Bld) [#/Vol] 3.55 10*6/uL Low 3.80 - 5.2 0 10*6/uL [facility] WBC (Bld) [#/Vol] 11.3 10*3/uL High 3.6 - 10.7 10*3/uL [facility] CBC WITH AUTO DIFFERENTIALon 02-04-2024 Basophils (Bld) [#/Vol] 0.0 10*3/uL Normal 0.0-0.2 [facility] Comment on above: Performed By: #### L [id number] ####Vp Medical: ROSALVA LOPEZ ([id number])[facility])[address] [place] [address] Basophils/100 WBC (Bld) 0.2 % Normal 0.0-2.0 [facility] Comment on above: Performed By: #### L [id number] ####Vp Medical: ROSALVA LOPEZ ([id number])[facility] ([facility])[address] [place] [address] Eosinophils (Bld) [#/Vol] 0.0 10*3/uL Normal 0.0-0.5 [facility] Comment on above: Performed By: #### L [id number] ####Vp Medical: ROSALVA [id number])[facility] ([facility] Eosinophils/100 WBC (Bld) 0.1 % Normal 0.0-6.0 [facility] Comment on above: Performed By: #### L [id number] ####Vp Medical: ROSALVA LOPEZ ([id number])[facility])[address] [place] [address] Erythrocyte distribution width (RBC) [Ratio] 14.4 % Normal 11.5-15.0 [facility] Comment on above: Performed By: #### L [id number] ####Vp Medical: ROSALVA LOPEZ ([id number])[address] Hematocrit (Bld) [Volume fraction] 30.2 % Low 35.0-47.0 [facility] Comment on above: Performed By: #### L [id number] ####Vp Medical: ROSALVA LOPEZ ([id number])[address] Hemoglobin (Bld) [Mass/Vol] 9.4 g/dL Low 11.7-16.0 [facility] Comment on above: Performed By: #### L [id number] ####Vp Medical: ROSALVA LOPEZ ([id number])[address] IMMATURE GRANS % 0.9 % Normal 0.0-2.0 [facility] Comment on above: Performed By: #### L [id number] ####Vp Medical: ROSALVA LOPEZ ([id number])[address] IMMATURE GRANS ABSOLUTE 0.1 10*3/uL High <0.1 [facility] Comment on above: Performed By: #### L [id number] ####Vp Medical: ROSALVA LOPEZ ([id number])[address] Lymphocytes (Bld) [#/Vol] 1.5 10*3/uL Normal 1.0-4.3 [facility] Comment on above: Performed By: #### L [id number] ####Vp Medical: ROSALVA LOPEZ ([id number])[facility])[address] [place] [address] Lymphocytes/100 WBC (Bld) 13.5 % Low 15.0-45.0 [facility] Comment on above: Performed By: #### L [id number] ####Vp Medical: ROSALVA LOPEZ ([id number])[facility])[address] [place] [address] MCH (RBC) [Entitic mass] 26.5 pg Normal 26.0-34.0 [facility] Comment on above: Performed By: #### L [id number] ####Vp Medical: ROSALVA LOPEZ ([id number])[facility])[address] [place] [address] MCHC 31.1 % Normal 30.5-36.0 [facility] Comment on above: Performed By: #### L [id number] ####Vp Medical: ROSALVA LOPEZ ([id number])[facility])[address] [place] [address] MCV (RBC) [Entitic vol] 85.1 fL Normal 77.0-99.0 [facility] Comment on above: Performed By: #### L [id number] ####Vp Medical: ROSALVA LOPEZ ([id number])[facility])[address] [place] [address] Monocytes (Bld) [#/Vol] 1.2 10*3/uL High 0.0-0.9 [facility] Comment on above: Performed By: #### L [id number] ####[facility]: ROSALVA LOPEZ ([id number])[facility])[address] [place] [address] Monocytes/100 WBC (Bld) 10.2 % Normal 5.0-13.0 [facility] Comment on above: Performed By: #### L [id number] ####[facility]: ROSALVA LOPEZ ([id number])[facility] ([facility])[address] [place] [address] NEUTROPHILS ABSOLUTE 8.5 10*3/uL High 1.8-7.5 [facility] Comment on above: Performed By: #### L [id number] ####[facility]: ROSALVA LOPEZ ([id number])[facility] ([facility])[address] [place] [address] Neutrophils/100 WBC (Bld) 75.1 % Normal 38.0-82.0 [facility] Comment on above: Performed By: #### L [id number] ####[facility]: ROSALVA LOPEZ ([id number])[facility] ([facility])[address] [place] [address] NRBC 0.0 /100 WBCs Normal 0.0-2.0 [facility] Comment on above: Performed By: #### L [id number] ####[facility]: ROSALVA LOPEZ ([id number])[facility] ([facility])[address] [place] [address] Platelet mean volume (Bld) [Entitic vol] 11.2 fL Normal 9.0-12.7 [facility] Comment on above: Performed By: #### L [id number] ####[facility]: ROSALVA LOPEZ ([id number])[facility] ([facility])[address] [place] [address] Platelets (Bld) [#/Vol] 182 10*3/uL Normal 140-440 [facility] Comment on above: Performed By: #### L [id number] ####[facility]: ROSALVA LOPEZ ([id number])[facility] ([facility])[address] [place] [address] RBC (Bld) [#/Vol] 3.55 10*6/uL Low 3.80-5.20 [facility] Comment on above: Performed By: #### L [id number] ####[facility]: ROSALVA LOPEZ ([id number])[facility] ([facility])[address] [place] [address] WBC (Bld) [#/Vol] 11.3 10*3/uL High 3.6-10.7 [facility] Comment on above: Performed By: #### L [id number] ####[facility] Medical: ROSALVA LOPEZ ([id number])[facility] ([facility])[address] [place] [address] IDNon 02-04-2024 IDN Normal [facility] Laboratory - Chemistry and C hemistry - challengeOrdered By: Amie Grayson on 02-04-2024 Base excess Calc (BldV) [Moles/Vol] 11.7 mmol/L High -3.0 - 3.0 mmol/L [facility] CO2 (BldV) [Partial pressure] 54.9 mm[Hg] [facility] CO2 [Moles/Vol] 39.2 mmol/L High 24.0 - 28.0 mmol/L [facility] HCO3 (Bld) [Moles/Vol] 37.5 mmol/L High 23.0 - 27.0 mmol/L [facility] Oxygen (BldV) [Partial pressure] 34.0 mm[Hg] mm Hg [facility] pH (BldV) 7.452 [pH] High 7.330 - 7.430 [facility] Laboratory - Hematology and Cell countsOrdered By: Amie Grayson on 02-04-2024 Hemoglobin (Bld) [Mass/Vol] 11.1 g/dL Screen only [facility] No Panel InformationOrdered By: Amie Grayson on 02-04-2024 Interpretation and review of laboratory results Abnormal [facility] Source Of Oxygen No data [facility] Progress Noteon 02-04-2024 Progress Note Normal [facility] Progress Note Normal [facility] Progress Note Vancomycin therapy h as been discontinued by Dr. Mildred Villafuerte on 02/04/24. Thank you for the consult. Pharmacy signing off for vancomycin dosing. Irena [place] [facility], Date: 02/04/24 Time: 9:18 AM Normal [facility] Progress Note Normal [facility] Progress Note Normal [facility] Vital signsOrdered By: Amie Grayson on 08-02-2024 Oxygen saturation in Venous blood 61.1 % [facility] BASIC METABOLIC PANELon 08-0 Anion gap [Moles/Vol] 2 mmol/L Low 3-13 [facility] Comment on above: Performed By: #### L [id number] ####[facility] Medical: ROSALVA LOPEZ ([id number])[facility] ([facility])[address] [place] [address] Calcium [Mass/Vol] 8.9 mg/dL Normal 8.4-10.4 [facility] Comment on above: Performed By: #### L [id number] ####[facility]: ROSALVA LOPEZ ([id number])[facility] ([facility])[address] [place] [address] Chloride [Moles/Vol] 104 mmol/L Normal 98-107 [facility] Comment on above: Performed By: #### L [id number] ####Vp Medical: ROSALVA LOPEZ ([id number])[facility] ([facility])[address] [place] [address] CO2 [Moles/Vol] 33 mmol/L High 22-30 [facility] Comment on above: Performed By: #### L [id number] ####V[facility] Medical: ROSALVA LOPEZ ([id number])[facility] ([facility])[address] [place] [address] Creatinine [Mass/Vol] 0.61 mg/dL Normal 0.52-1.04 [facility] Comment on above: Performed By: #### L [id number] ####Vp Medical: ROSALVA LOPEZ ([id number])[facility])[address] [place] [address] GLOMERULAR FILTRATION RATE ML/MIN/1.73 SQ M.PREDICTED >90.0 Normal >60.0 [facility] Comment on above: Result Comment: Calc ulation based on the Chronic Kidney Disease Epidemiology Collaboration (CKD-EPI) equation refit without adjustment for race Performed By: #### L [id number] ####[facility] Medical: ROSALVA LOPEZ ([id number])[facility] ([facility])[address] [place] [address] [place] Glucose [Mass/Vol] 97 mg/dL Normal 70-100 [facility] Comment on above: Performed By: #### L [id number] ####Vp Medical: ROSALVA LOPEZ ([id number])[facility])[address] [place] [address] Potassium [Moles/Vol] 3.1 mmol/L Low 3.5-5.1 [facility] Comment on above: Performed By: #### L [id number] ####V[facility] Medical: ROSALVA LOPEZ ([id number])[facility] ([facility])[address] [place] [address] Sodium [Moles/Vol] 140 mmol/L Normal 135-145 [facility] Comment on above: Performed By: #### L [id number] ####Vp Medical: ROSALVA LOPEZ ([id number])[facility])[address] [place] [address] Urea nitrogen [Mass/Vol] 26 mg/dL High 7-17 [facility] Comment on above: Performed By: #### L [id number] ####Vp Medical: ROSALVA LOPEZ ([id number])[facility] ([facility])[address] [place] [address] BLOOD GAS, VENOUSon 02-03-20 24 Base excess Calc (BldV) [Moles/Vol] 5.2 mmol/L High -3.0-3.0 [facility] Comment on above: Performed By: #### L [id number] ####Vp Medical: ROSALVA LOPEZ ([id number])[facility] ([facility])[address] [place] [address] [place] CO2 [Moles/Vol] 35.0 mmol/L High 24.0-28.0 [facility] Comment on above: Performed By: #### L [id number] ####Vp Medical: ROSALVA LOPEZ ([id number])[facility])[address] [place] [address] HCO3 (Bld) [Moles/Vol] 32.9 mmol/L High 23.0-27.0 [facility] Comment on above: Performed By: #### L [id number] ####Vp Medical: ROSALVA LOPEZ ([id number])[facility])[address] [place] [address] Hemoglobin (Bld) [Mass/Vol] 9.8 g/dL Normal Screen only [facility] Comment on above: Performed By: #### L [id number] ####Vp Medical: ROSALVA LOPEZ ([id number])[facility])[address] [place] [address] OXYGEN (MM HG) IN VENOUS BLOOD 50.1 mm Hg Normal [facility] Comment on above: Performed By: #### L [id number] ####Vp Medical: ROSALVA LOPEZ ([id number])[facility])[address] [place] [address] OXYGEN SATURATION (%) IN VENOUS BLOOD 79.8 % Normal [facility] Comment on above: Performed By: #### L [id number] ####Vp Medical: ROSALVA LOPEZ ([id number])[facility] ([facility])[address] [place] [address] PCO2, GNÉESIS 67.8 mm Hg High 40.0-55.0 [facility] Comment on above: Performed By: #### L [id number] ####Vp Medical: ROSALVA LOPEZ ([id number])[facility])[address] [place] [address] PH VENOUS 7.304 Low 7.330-7.430 [facility] Comment on above: Performed By: #### L [id number] ####Vp Medical: ROSALVA LOPEZ ([id number])[facility])[address] [place] [address] SOURCE OF OXYGEN Bi-PAP Normal [facility] Comment on above: Result Comment: 10L 40%ORDER COMMENTS:Assessment of oxygenation is best done with an arterial blood gas determination. Reference ranges for pO2, bicarbonate, and base excess are for mixed venous blood. Specimens drawn from a peripheral vein will often have higher values. Performed By: #### L [id number] ####[facility] Medical: ROSALVA LOPEZ ([id number])[facility] ([facility])[address] [place] [address] Basic metabolic 1998 panelon 02-03-2024 Anion gap [Moles/Vol] 2 mmol/L Low 3 - 13 mmol/L [facility] Calcium [Mass/Vol] 8.9 mg/dL 8.4 - 10. 4 mg/dL [facility] Chloride [Moles/Vol] 104 mmol/L 98 - 10 7 mmol/L [facility] CO2 [Moles/Vol] 33 mmol/L High 22 - 30 mmol/L [facility] Creatinine [Mass/Vol] 0.61 mg/dL 0.52 - 1.04 mg/dL [facility] GFR/1.73 sq M.predicted (S/P/Bld) [Vol rate/Area] - PINF [facility] Glucose [Mass/Vol] 97 mg/dL 70 - 100 mg/dL [facility] Interpretation and review of laboratory results Abnormal [facility] Potassium [Moles/Vol] 3.1 mmol/L Low 3.5 - 5.1 mmol/L [facility] Sodium [Moles/Vol] 140 mmol/L 135 - 145 mmol/L [facility] Urea nitrogen [Mass/Vol] 26 mg/dL High 7 - 17 mg/dL [facility] CARECOORDon 02-03-2024 CARECOORD Called [employer] medical equipment Pulsant. Patient only gets home O2 from company. BIPAP/CPAP/Trilogy machine is not rented through them. SO to bring patient's machine to room today. Normal [facility] CBC W Auto Differential pane l (Bld)on 02-03-2024 Basophils (Bld) [#/Vol] 0.0 10*3/uL 0.0 - 0.2 10*3/uL [facility] Basophils/100 WBC (Bld) 0.1 % 0.0 - 2.0 % [facility] Eosinophils (Bld) [#/Vol] 0.0 10*3/uL 0.0 - 0.5 10*3/uL [facility] Eosinophils/100 WBC (Bld) 0.0 % 0.0 - 6.0 % [facility] Erythrocyte distribution width (RBC) [Ratio] 14.6 % 11.5 - 15.0 % [facility] Hematocrit (Bld) [Volume fraction] 29.7 % Low 35.0 - 47.0 % [facility] Hemoglobin (Bld) [Mass/Vol] 9.1 g/dL Low 11.7 - 16.0 g/dL [facility] Immature granulocytes (Bld) [#/Vol] 0.1 10*3/uL High NINF - 0.1 10*3/uL [facility] Immature granulocytes/100 WBC (Bld) 1.0 % 0.0 - 2.0 % [facility] Interpretation and review of laboratory results Abnormal [facility] Lymphocytes (Bld) [#/Vol] 1.3 10*3/uL 1.0 - 4.3 10*3/uL [facility] Lymphocytes/100 WBC (Bld) 13.7 % Low 15.0 - 45.0 % [facility] MCH (RBC) [Entitic mass] 26.7 pg 26.0 - 34.0 pg [facility] MCHC (RBC) [Mass/Vol] 30.6 % 30.5 - 36.0 % [facility] MCV (RBC) [Entitic vol] 87.1 fL 77.0 - 99.0 fL [facility] Monocytes (Bld) [#/Vol] 0.9 10*3/uL 0.0 - 0.9 10*3/uL [facility] Monocytes/100 WBC (Bld) 9.1 % 5.0 - 13.0 % [facility] Neutrophils (Bld) [#/Vol] 7.2 10*3/uL 1.8 - 7.5 10*3/uL [facility] Neutrophils/100 WBC (Bld) 76.1 % 38.0 - 82.0 % [facility] Nucleated RBC/100 WBC (Bld) [Ratio] 0.0 % [facility] [employer] Platelet mean volume (Bld) [Entitic vol] 10.2 fL 9.0 - 12.7 fL [facility] Platelets (Bld) [#/Vol] 152 10*3/uL 140 - 440 10*3/uL [facility] RBC (Bld) [#/Vol] 3.41 10*6/uL Low 3.80 - 5.2 0 10*6/uL [facility] WBC (Bld) [#/Vol] 9.4 10*3/uL 3.6 - 10.7 10*3/uL [facility] CBC WITH AUTO DIFFERENTIALon 02-03-2024 Basophils (Bld) [#/Vol] 0.0 10*3/uL Normal 0.0-0.2 [facility] Comment on above: Performed By: #### L [id number] ####V[facility] Medical: ROSALVA LOPEZ ([id number])[facility] ([facility])[address] [place] [address] [place] Basophils/100 WBC (Bld) 0.1 % Normal 0.0-2.0 [facility] Comment on above: Performed By: #### L [id number] ####Vp Medical: ROSALVA LOPEZ ([id number])[facility])[address] [place] [address] Eosinophils (Bld) [#/Vol] 0.0 10*3/uL Normal 0.0-0.5 [facility] Comment on above: Performed By: #### L [id number] ####Vp Medical: ROSALVA LOPEZ ([id number])[facility] ([facility])[address] [place] [address] Eosinophils/100 WBC (Bld) 0.0 % Normal 0.0-6.0 [facility] Comment on above: Performed By: #### L [id number] ####Vp Medical: ROSALVA LOPEZ ([id number])[facility])[address] [place] [address] Erythrocyte distribution width (RBC) [Ratio] 14.6 % Normal 11.5-15.0 [facility] Comment on above: Performed By: #### L [id number] ####V[facility] Medical: ROSALVA LOPEZ ([id number])[address] Hematocrit (Bld) [Volume fraction] 29.7 % Low 35.0-47.0 [facility] Comment on above: Performed By: #### L [id number] ####Vp Medical: ROSALVA [id number])[facility])[address] [place] [address] Hemoglobin (Bld) [Mass/Vol] 9.1 g/dL Low 11.7-16.0 [facility] Comment on above: Performed By: #### L [id number] ####Vp Medical: ROSALVA LOPEZ ([id number])[facility])[address] [place] [address] IMMATURE GRANS % 1.0 % Normal 0.0-2.0 [facility] Comment on above: Performed By: #### L [id number] ####Vp Medical: ROSALVA LOPEZ ([id number])[facility])[address] [place] [address] IMMATURE GRANS ABSOLUTE 0.1 10*3/uL High <0.1 [facility] Comment on above: Performed By: #### L [id number] ####Vp Medical: ROSALVA LOPEZ ([id number])[facility])[address] [place] [address] Lymphocytes (Bld) [#/Vol] 1.3 10*3/uL Normal 1.0-4.3 [facility] Comment on above: Performed By: #### L [id number] ####Vp Medical: ROSALVA LOPEZ ([id number])[facility])[address] [place] [address] Lymphocytes/100 WBC (Bld) 13.7 % Low 15.0-45.0 [facility] Comment on above: Performed By: #### L [id number] ####Vp Medical: ROSALVA LOPEZ ([id number])[facility])[address] [place] [address] MCH (RBC) [Entitic mass] 26.7 pg Normal 26.0-34.0 [facility] Comment on above: Performed By: #### L [id number] ####Vp Medical: ROSALVA LOPEZ ([id number])[facility])[address] [place] [address] MCHC 30.6 % Normal 30.5-36.0 [facility] Comment on above: Performed By: #### L [id number] ####Vp Medical: ROSALVA LOPEZ ([id number])[facility])[address] [place] [address] MCV (RBC) [Entitic vol] 87.1 fL Normal 77.0-99.0 [facility] Comment on above: Performed By: #### L [id number] ####Vp Medical: ROSALVA LOPEZ ([id number])[facility])[address] [place] [address] Monocytes (Bld) [#/Vol] 0.9 10*3/uL Normal 0.0-0.9 [facility] Comment on above: Performed By: #### L [id number] ####Vp Medical: ROSALVA LOPEZ ([id number])[facility])[address] [place] [address] Monocytes/100 WBC (Bld) 9.1 % Normal 5.0-13.0 [facility] Comment on above: Performed By: #### L [id number] ####Vp Medical: ROSALVA LOPEZ ([id number])[facility])[address] [place] [address] NEUTROPHILS ABSOLUTE 7.2 10*3/uL Normal 1.8-7.5 [facility] Comment on above: Performed By: #### L [id number] ####Vp Medical: ROSALVA LOPEZ ([id number])[facility])[address] [place] [address] Neutrophils/100 WBC (Bld) 76.1 % Normal 38.0-82.0 [facility] Comment on above: Performed By: #### L [id number] ####Vp Medical: ROSALVA LOPEZ ([id number])[facility])[address] [place] [address] NRBC 0.0 /100 WBCs Normal 0.0-2.0 [facility] Comment on above: Performed By: #### L [id number] ####Vp Medical: ROSALVA LOPEZ ([id number])[facility] ([facility])[address] [place] [address] Platelet mean volume (Bld) [Entitic vol] 10.2 fL Normal 9.0-12.7 [facility] Comment on above: Performed By: #### L [id number] ####Vp Medical: ROSALVA LOPEZ ([id number])[facility] ([facility])[address] [place] [address] Platelets (Bld) [#/Vol] 152 10*3/uL Normal 140-440 [facility] Comment on above: Performed By: #### L [id number] ####Vp Medical: ROSALVA LOPEZ ([id number])[facility] ([facility])[address] [place] [address] RBC (Bld) [#/Vol] 3.41 10*6/uL Low 3.80-5.20 [facility] Comment on above: Performed By: #### L [id number] ####Vp Medical: RSOALVA LOPEZ ([id number])[facility] ([facility])[address] [place] [address] WBC (Bld) [#/Vol] 9.4 10*3/uL Normal 3.6-10.7 [facility] Comment on above: Performed By: #### L [id number] ####Vp Medical: ROSALVA LOPEZ ([id number])[facility] ([facility])[address] [place] [address] IDNon 02-03-2024 IDN Normal [facility] IDN The patient is Moderately Stable - Low risk of patient condition declining or worsening The patient's goals for the shift include Feel Better The clinical goals for the shift include Apply BIPAP and watch for improvement in ABG Normal [facility] Laboratory - Chemistry and C hemistry - challengeOrdered By: Shi Toth on 02-03-2024 Base excess Calc (BldV) [Moles/Vol] 5.2 mmol/L High -3.0 - 3.0 mmol/L [facility] CO2 (BldV) [Partial pressure] 67.8 mm[Hg] High [facility] CO2 [Moles/Vol] 35.0 mmol/L High 24.0 - 28.0 mmol/L [facility] HCO3 (Bld) [Moles/Vol] 32.9 mmol/L High 23.0 - 27.0 mmol/L [facility] Oxygen (BldV) [Partial pressure] 50.1 mm[Hg] mm Hg [facility] pH (BldV) 7.304 [pH] Low 7.330 - 7.430 [facility] Laboratory - Hematology and Cell countsOrdered By: Shi Toth on 02-03-2024 Hemoglobin (Bld) [Mass/Vol] 9.8 g/dL Screen only [facility] No Panel InformationOrdered By: Shi Toth on 02-03-2024 Interpretation and review of laboratory results Abnormal [facility] Source Of Oxygen Bi-PAP [facility] Progress Noteon 02-03-2024 Progress Note Normal [facility] Progress Note Normal [facility] Progress Note Normal [facility] Vital signsOrdered By: Karine Toth on 02-03-2024 Oxygen saturation in Venous blood 79.8 % [facility] BASIC METABOLIC PANELon 07-3 Anion gap [Moles/Vol] 4 mmol/L Normal 3-13 [facility] Comment on above: Performed By: #### L [id number] ####Vp Medical: ROSALVA LOPEZ ([id number])[address] Calcium [Mass/Vol] 8.7 mg/dL Normal 8.4-10.4 [facility] Comment on above: Performed By: #### L [id number] ####Vp Medical: ROSALVA LOPEZ ([id number])[facility] ([facility])[address] [place] [address] [place] Chloride [Moles/Vol] 103 mmol/L Normal 98-107 [facility] Comment on above: Performed By: #### L [id number] ####Vp Medical: ROSALVA LOPEZ ([id number])[facility] ([facility])[address] [place] [address] [place] CO2 [Moles/Vol] 32 mmol/L High 22-30 [facility] Comment on above: Performed By: #### L [id number] ####Vp Medical: ROSALVA LOPEZ ([id number])[facility])[address] [place] [address] Creatinine [Mass/Vol] 0.58 mg/dL Normal 0.52-1.04 [facility] Comment on above: Performed By: #### L [id number] ####Vp Medical: ROSALVA LOPEZ ([id number])[facility])[address] [place] [address] [place] GLOMERULAR FILTRATION RATE ML/MIN/1.73 SQ M.PREDICTED >90.0 Normal >60.0 [facility] Comment on above: Result Comment: Calc ulation based on the Chronic Kidney Disease Epidemiology Collaboration (CKD-EPI) equation refit without adjustment for race Performed By: #### L [id number] ####Vp Medical: ROSALVA LOPEZ ([id number])[facility])[address] [place] [address] [place] Glucose [Mass/Vol] 78 mg/dL Normal 70-100 [facility] Comment on above: Performed By: #### L [id number] ####Vp Medical: ROSALVA LOPEZ ([id number])[facility])[address] [place] [address] [place] Potassium [Moles/Vol] 3.7 mmol/L Normal 3.5-5.1 [facility] Comment on above: Performed By: #### L [id number] ####Vp Medical: ROSALVA LOPEZ ([id number])[facility])[address] [place] [address] [place] Sodium [Moles/Vol] 138 mmol/L Normal 135-145 [facility] Comment on above: Performed By: #### L [id number] ####Vp Medical: ROSALVA LOPEZ ([id number])[facility])[address] [place] [address] [place] Urea nitrogen [Mass/Vol] 23 mg/dL High 7-17 [facility] Comment on above: Performed By: #### L [id number] ####Vp Medical: ROSALVA LOPEZ ([id number])[facility])[address] [place] [address] BLOOD GAS, VENOUSon 02-02-20 24 Base excess Calc (BldV) [Moles/Vol] 4.1 mmol/L High -3.0-3.0 [facility] Comment on above: Performed By: #### L [id number] ####Vp Medical: ROSALVA LOPEZ ([id number])[facility])[address] [place] [address] CO2 [Moles/Vol] 33.0 mmol/L High 24.0-28.0 [facility] Comment on above: Performed By: #### L [id number] ####Vp Medical: ROSALVA LOPEZ ([id number])[facility])[address] [place] [address] HCO3 (Bld) [Moles/Vol] 31.1 mmol/L High 23.0-27.0 [facility] Comment on above: Performed By: #### L [id number] ####Vp Medical: ROSALVA LOPEZ ([id number])[facility])[address] [place] [address] Hemoglobin (Bld) [Mass/Vol] 10.2 g/dL Normal Screen only [facility] Comment on above: Performed By: #### L [id number] ####Vp Medical: ROSALVA LOPEZ ([id number])[facility])[address] [place] [address] OXYGEN (MM HG) IN VENOUS BLOOD 35.2 mm Hg Normal [facility] Comment on above: Performed By: #### L [id number] ####Vp Medical: ROSALVA LOPEZ ([id number])[facility])[address] [place] [address] OXYGEN SATURATION (%) IN VENOUS BLOOD 60.8 % Normal [facility] Comment on above: Performed By: #### L [id number] ####Vp Medical: ROSALVA LOPEZ ([id number])[facility])[address] [place] [address] PCO2, GÉNESIS 60.3 mm Hg High 40.0-55.0 [facility] Comment on above: Performed By: #### L [id number] ####Vp Medical: ROSALVA LOPEZ ([id number])[facility])[address] [place] [address] PH VENOUS 7.331 Normal 7.330-7.430 [facility] Comment on above: Performed By: #### L [id number] ####Vp Medical: ROSALVA LOPEZ ([id number])[facility])[address] [place] [address] SOURCE OF OXYGEN Other (Add Comment) Normal [facility] Comment on above: Result Comment: Trac h maskORDER COMMENTS:Assessment of oxygenation is best done with an arterial blood gas determination. Reference ranges for pO2, bicarbonate, and base excess are for mixed venous blood. Specimens drawn from a peripheral vein will often have higher values. Performed By: #### L [id number] ####Vp Medical: ROSALVA LOPEZ ([id number])[facility] ([facility])[address] [place] [address] Base excess Calc (BldV) [Moles/Vol] 3.4 mmol/L High -3.0-3.0 [facility] Comment on above: Performed By: #### L [id number] ####Vp Medical: ROSALVA LOPEZ ([id number])[facility] ([facility])[address] [place] [address] [place] CO2 [Moles/Vol] 34.0 mmol/L High 24.0-28.0 [facility] Comment on above: Performed By: #### L [id number] ####Vp Medical: ROSALVA LOPEZ ([id number])[facility])[address] [place] [address] HCO3 (Bld) [Moles/Vol] 31.8 mmol/L High 23.0-27.0 [facility] Comment on above: Performed By: #### L [id number] ####V[facility] Medical: ROSAVLA LOPEZ ([id number])[facility])[address] [place] [address] Hemoglobin (Bld) [Mass/Vol] 9.8 g/dL Normal Screen only [facility] Comment on above: Performed By: #### L [id number] ####[facility]: ROSALVA LOPEZ ([id number])[facility] ADMINISTRATION ([facility])[address] [place] [address] OXYGEN (MM HG) IN VENOUS BLOOD 48.5 mm Hg Normal [facility] Comment on above: Performed By: #### L [id number] ####Vp Medical: ROSALVA LOPEZ ([id number])[facility])[address] [place] [address] OXYGEN SATURATION (%) IN VENOUS BLOOD 76.3 % Normal [facility] Comment on above: Performed By: #### L [id number] ####Vp Medical: ROSALVA LOPEZ ([id number])[facility] ([facility])[address] [place] [address] PCO2, GÉNESIS 72.1 mm Hg High 40.0-55.0 [facility] Comment on above: Performed By: #### L [id number] ####Vp Medical: ROSALVA LOPEZ ([id number])[facility])[address] [place] [address] PH VENOUS 7.262 Low 7.330-7.430 [facility] Comment on above: Performed By: #### L [id number] ####Vp Medical: ROSALVA LOPEZ ([id number])[facility])[address] [place] [address] SOURCE OF OXYGEN Bi-PAP Normal [facility] Comment on above: Result Comment: RAMY Champion COMMENTS:Assessment of oxygenation is best done with an arterial blood gas determination. Reference ranges for pO2, bicarbonate, and base excess are for mixed venous blood. Specimens drawn from a peripheral vein will often have higher values. Performed By: #### L [id number] ####Vp Medical: ROSALVA LOPEZ ([id number])[facility] ([facility])[address] [place] [address] [place] Bacteria identified Cx Nom ( Bld)on 02-02-2024 Interpretation and review of laboratory results Normal [facility] Interpretation and review of laboratory results Normal [facility] Basic metabolic 1998 panelon 02-02-2024 Anion gap [Moles/Vol] 4 mmol/L 3 - 13 mmol/L [facility] Calcium [Mass/Vol] 8.7 mg/dL 8.4 - 10. 4 mg/dL [facility] Chloride [Moles/Vol] 103 mmol/L 98 - 10 7 mmol/L [facility] CO2 [Moles/Vol] 32 mmol/L High 22 - 30 mmol/L [facility] Creatinine [Mass/Vol] 0.58 mg/dL 0.52 - 1.04 mg/dL [facility] GFR/1.73 sq M.predicted (S/P/Bld) [Vol rate/Area] - PINF [facility] Glucose [Mass/Vol] 78 mg/dL 70 - 100 mg/dL [facility] Interpretation and review of laboratory results Abnormal [facility] Potassium [Moles/Vol] 3.7 mmol/L 3.5 - 5.1 mmol/L [facility] Sodium [Moles/Vol] 138 mmol/L 135 - 145 mmol/L [facility] Urea nitrogen [Mass/Vol] 23 mg/dL High 7 - 17 mg/dL [facility] CARECOORDon 02-02-2024 CARECOORD Normal [facility] CBC W Auto Differential pane l (Bld)Ordered By: Letha Zhou on 02-02-2024 Basophils (Bld) [#/Vol] 0.0 10*3/uL 0.0 - 0.2 10*3/uL [facility] Basophils/100 WBC (Bld) 0.2 % 0.0 - 2.0 % [facility] Eosinophils (Bld) [#/Vol] 0.0 10*3/uL 0.0 - 0.5 10*3/uL [facility] Eosinophils/100 WBC (Bld) 0.0 % 0.0 - 6.0 % [facility] Erythrocyte distribution width (RBC) [Ratio] 14.7 % 11.5 - 15.0 % [facility] Hematocrit (Bld) [Volume fraction] 28.6 % Low 35.0 - 47.0 % [facility] Hemoglobin (Bld) [Mass/Vol] 8.8 g/dL Low 11.7 - 16.0 g/dL [facility] [employer] Immature granulocytes (Bld) [#/Vol] 0.1 10*3/uL High NINF - 0.1 10*3/uL [facility] Immature granulocytes/100 WBC (Bld) 0.8 % 0.0 - 2.0 % [facility] Interpretation and review of laboratory results Abnormal [facility] IPF 6 [facility] Lymphocytes (Bld) [#/Vol] 1.0 10*3/uL 1.0 - 4.3 10*3/uL [facility] Lymphocytes/100 WBC (Bld) 8.2 % Low 15.0 - 45.0 % [facility] MCH (RBC) [Entitic mass] 27.2 pg 26.0 - 34.0 pg [facility] MCHC (RBC) [Mass/Vol] 30.8 % 30.5 - 36.0 % [facility] MCV (RBC) [Entitic vol] 88.5 fL 77.0 - 99.0 fL [facility] Monocytes (Bld) [#/Vol] 0.7 10*3/uL 0.0 - 0.9 10*3/uL [facility] Monocytes/100 WBC (Bld) 5.6 % 5.0 - 13.0 % [facility] Neutrophils (Bld) [#/Vol] 10.5 10*3/uL High 1.8 - 7.5 10*3/uL [facility] Neutrophils/100 WBC (Bld) 85.2 % High 38.0 - 82.0 % [facility] Nucleated RBC/100 WBC (Bld) [Ratio] 0.0 % [facility] Platelet mean volume (Bld) [Entitic vol] 10.7 fL 9.0 - 12.7 fL [facility] Platelets (Bld) [#/Vol] 140 10*3/uL 140 - 440 10*3/uL [facility] RBC (Bld) [#/Vol] 3.23 10*6/uL Low 3.80 - 5.2 0 10*6/uL [facility] WBC (Bld) [#/Vol] 12.3 10*3/uL High 3.6 - 10.7 10*3/uL [facility] CBC WITH AUTO DIFFERENTIALon 02-02-2024 Basophils (Bld) [#/Vol] 0.0 10*3/uL Normal 0.0-0.2 [facility] Comment on above: Performed By: #### L [id number] ####Vp Medical: ROSALVA LOPEZ ([id number])[facility] ([facility])[address] [place] [address] Basophils/100 WBC (Bld) 0.2 % Normal 0.0-2.0 [facility] Comment on above: Performed By: #### L [id number] ####Vp Medical: ROSALVA LOPEZ ([id number])[facility] ([facility])[address] [place] [address] Eosinophils (Bld) [#/Vol] 0.0 10*3/uL Normal 0.0-0.5 [facility] Comment on above: Performed By: #### L [id number] ####Vp Medical: ROSALVA LOPEZ ([id number])[facility] ([facility])[address] [place] [address] Eosinophils/100 WBC (Bld) 0.0 % Normal 0.0-6.0 [facility] Comment on above: Performed By: #### L [id number] ####Vp Medical: ROSALVA LOPEZ ([id number])[facility])[address] [place] [address] Erythrocyte distribution width (RBC) [Ratio] 14.7 % Normal 11.5-15.0 [facility] Comment on above: Performed By: #### L [id number] ####Vp Medical: ROSALVA LOPEZ ([id number])[facility] ([facility])[address] [place] [address] Hematocrit (Bld) [Volume fraction] 28.6 % Low 35.0-47.0 [facility] Comment on above: Performed By: #### L [id number] ####Vp Medical: ROSALVA LOPEZ ([id number])[facility])[address] [place] [address] Hemoglobin (Bld) [Mass/Vol] 8.8 g/dL Low 11.7-16.0 [facility] Comment on above: Performed By: #### L [id number] ####Vp Medical: ROSALVA LOPEZ ([id number])[facility])[address] [place] [address] IMMATURE GRANS % 0.8 % Normal 0.0-2.0 [facility] Comment on above: Performed By: #### L [id number] ####Vp Medical: ROSALVA LOPEZ ([id number])[facility])[address] [place] [address] IMMATURE GRANS ABSOLUTE 0.1 10*3/uL High <0.1 [facility] Comment on above: Performed By: #### L [id number] ####Vp Medical: ROSALVA LOPEZ ([id number])[address] IPF 6 Normal [facility] Comment on above: Performed By: #### L [id number] ####Vp Medical: ROSALVA LOPEZ ([id number])[facility])[address] [place] [address] Lymphocytes (Bld) [#/Vol] 1.0 10*3/uL Normal 1.0-4.3 [facility] Comment on above: Performed By: #### L [id number] ####Vp Medical: ROSALVA LOPEZ ([id number])[facility])[address] [place] [address] Lymphocytes/100 WBC (Bld) 8.2 % Low 15.0-45.0 [facility] Comment on above: Performed By: #### L [id number] ####Vp Medical: ROSALVA LOPEZ ([id number])[address] MCH (RBC) [Entitic mass] 27.2 pg Normal 26.0-34.0 [facility] Comment on above: Performed By: #### L [id number] ####Vp Medical: ROSALVA LOPEZ ([id number])[facility] ([facility])[address] [place] [address] MCHC 30.8 % Normal 30.5-36.0 [facility] Comment on above: Performed By: #### L [id number] ####Vp Medical: ROSALVA LOPEZ ([id number])[facility] ([facility])[address] [place] [address] MCV (RBC) [Entitic vol] 88.5 fL Normal 77.0-99.0 [facility] Comment on above: Performed By: #### L [id number] ####Vp Medical: ROSALVA LOPEZ ([id number])[facility])[address] [place] [address] Monocytes (Bld) [#/Vol] 0.7 10*3/uL Normal 0.0-0.9 [facility] Comment on above: Performed By: #### L [id number] ####Vp Medical: ROSALVA LOPEZ ([id number])[facility] ([facility])[address] [place] [address] Monocytes/100 WBC (Bld) 5.6 % Normal 5.0-13.0 [facility] Comment on above: Performed By: #### L [id number] ####Vp Medical: ROSALVA LOPEZ ([id number])[facility] ([facility])[address] [place] [address] NEUTROPHILS ABSOLUTE 10.5 10*3/uL High 1.8-7.5 [facility] Comment on above: Performed By: #### L [id number] ####Vp Medical: ROSALVA LOPEZ ([id number])[facility] ([facility])[address] [place] [address] Neutrophils/100 WBC (Bld) 85.2 % High 38.0-82.0 [facility] Comment on above: Performed By: #### L [id number] ####Vp Medical: ROSALVA LOPEZ ([id number])[facility] ([facility])[address] [place] [address] NRBC 0.0 /100 WBCs Normal 0.0-2.0 [facility] Comment on above: Performed By: #### L [id number] ####Vp Medical: ROSALVA LOPEZ ([id number])[facility])[address] [place] [address] Platelet mean volume (Bld) [Entitic vol] 10.7 fL Normal 9.0-12.7 [facility] Comment on above: Performed By: #### L [id number] ####Vp Medical: ROSALVA LOPEZ ([id number])[facility] ([facility])[address] [place] [address] Platelets (Bld) [#/Vol] 140 10*3/uL Normal 140-440 [facility] Comment on above: Performed By: #### L [id number] ####Vp Medical: ROSALVA LOPEZ ([id number])[facility])[address] [place] [address] RBC (Bld) [#/Vol] 3.23 10*6/uL Low 3.80-5.20 [facility] Comment on above: Performed By: #### L [id number] ####Vp Medical: ROSALVA LOPEZ ([id number])[facility])[address] [place] [address] WBC (Bld) [#/Vol] 12.3 10*3/uL High 3.6-10.7 [facility] Comment on above: Performed By: #### L [id number] ####Vp Medical: ROSALVA LOPEZ ([id number])[facility])[address] [place] [address] ECG 12-LEADon 02-02-2024 ECG 12-LEAD IMPRESSION: Sinus tachycardia Inferior infarct, old Electronically Signed On 02-02-2024 16:38:01 EDT by Dominic Galvin Normal [facility] IDNon 02-02-2024 IDN Normal [facility] Laboratory - Chemistry and C hemistry - challengeOrdered By: Balwinder Contreras on 02-02-2024 Base excess Calc (BldV) [Moles/Vol] 4.1 mmol/L High -3.0 - 3.0 mmol/L [facility] CO2 (BldV) [Partial pressure] 60.3 mm[Hg] High [facility] CO2 [Moles/Vol] 33.0 mmol/L High 24.0 - 28.0 mmol/L [facility] HCO3 (Bld) [Moles/Vol] 31.1 mmol/L High 23.0 - 27.0 mmol/L [facility] Oxygen (BldV) [Partial pressure] 35.2 mm[Hg] mm Hg [facility] pH (BldV) 7.331 [pH] 7.330 - 7.430 [facility] Laboratory - Chemistry and C hemistry - challengeon 02-02-2024 Base excess Calc (BldV) [Moles/Vol] 3.4 mmol/L High -3.0 - 3.0 mmol/L [facility] CO2 (BldV) [Partial pressure] 72.1 mm[Hg] High [facility] CO2 [Moles/Vol] 34.0 mmol/L High 24.0 - 28.0 mmol/L [facility] HCO3 (Bld) [Moles/Vol] 31.8 mmol/L High 23.0 - 27.0 mmol/L [facility] Oxygen (BldV) [Partial pressure] 48.5 mm[Hg] mm Hg [facility] pH (BldV) 7.262 [pH] Low 7.330 - 7.430 [facility] Laboratory - Drug toxicology on 02-02-2024 Vancomycin trough [Mass/Vol] 20.7 ug/mL High 15.0 - 20.0 ug/mL [facility] Laboratory - Hematology and Cell countsOrdered By: Balwinder Contreras on 02-02-2024 Hemoglobin (Bld) [Mass/Vol] 10.2 g/dL Screen only [facility] Laboratory - Hematology and Cell countson 02-02-2024 Hemoglobin (Bld) [Mass/Vol] 9.8 g/dL Screen only [facility] Laboratory - Microbiology an d Antimicrobial susceptibilityon 02-02-2024 Bacteria identified Cx Nom (Bld) No growth at 5 days [facility] Bacteria identified Cx Nom (Bld) No growth at 5 days [facility] No Panel InformationOrdered By: Dominic Galvin on 02-02-2024 P [place] 71 degrees [facility] Work Phone: NV Interval 110 ms [facility] Work Phone: QRS [place] 52 degrees [facility] Work Phone: QRSD Interval 99 ms [employer] Work Phone: QT Interval 353 ms [employer] Work Phone: QTC Interval 456 ms [employer] Work Phone: T Wave [place] 19 degrees [employer] Work Phone: [employer] Work Phone: No Panel Informationon 02-01 CV EPIPHANY [facility] [employer] Interpretation and review of laboratory results Abnormal [facility] Source Of Oxygen Bi-PAP [facility] No Panel InformationOrdered By: Balwinder Contreras on 02-02-2024 Interpretation and review of laboratory results Abnormal [facility] Source Of Oxygen Other (Add Comment) [facility] Progress Noteon 02-02-2024 Progress Note Normal [facility] Progress Note Normal [facility] Progress Note Normal [facility] VANCOMYCIN, AUC TIMED DOSING on 02-02-2024 VANCOMYCIN, AUC 20.7 ug/mL High 15.0-20.0 [facility] Comment on above: Order Comment: Pleas e draw random level at least >2 hours after the end of the last vancomycin infusion, or 30-minutes before next infusion. Performed By: #### L [id number] ####[employer]: ROSALVA LOPEZ ([id number])[address] Vancomycin trough [Mass/Vol] on 02-02-2024 Interpretation and review of laboratory results Abnormal [facility] Vital signsOrdered By: Karine Galvin on 02-02-2024 Heart rate 100 /min bpm [facility] Work Phone: Vital signsOrdered By: Balwinder Contreras on 02-02-2024 Oxygen saturation in Venous blood 60.8 % [facility] Vital signson 02-02-2024 Oxygen saturation in Venous blood 76.3 % [facility] XR CHEST 1 VIEWon 02-02-2024 XR CHEST 1 VIEW Normal [facility] XR Chest Single viewon 02-01 [facility] Radiology Study observation (narrative) [facility] XR Chest Single viewOrdered By: Howie Clarke on 02-02-2024 [facility] [employer] Work Phone: BASIC METABOLIC PANELon 01-04 Anion gap [Moles/Vol] 3 mmol/L Normal 3-13 [facility] Comment on above: Performed By: #### L [id number] ####Vp Medical: ROSALVA LOPEZ ([id number])[facility] ([facility])[address] [place] [address] Calcium [Mass/Vol] 9.3 mg/dL Normal 8.4-10.4 [facility] Comment on above: Performed By: #### L [id number] ####Vp Medical: ROSALVA LOPEZ ([id number])[facility] ([facility])[address] [place] [address] Chloride [Moles/Vol] 106 mmol/L Normal 98-107 [facility] Comment on above: Performed By: #### L [id number] ####Vp Medical: ROSALVA LOPEZ ([id number])[facility] ([facility])[address] [place] [address] CO2 [Moles/Vol] 32 mmol/L High 22-30 [facility] Comment on above: Performed By: #### L [id number] ####Vp Medical: ROSALVA LOPEZ ([id number])[facility])[address] [place] [address] Creatinine [Mass/Vol] 0.59 mg/dL Normal 0.52-1.04 [facility] Comment on above: Performed By: #### L [id number] ####Vp Medical: ROSALVA LOPEZ ([id number])[facility])[address] [place] [address] GLOMERULAR FILTRATION RATE ML/MIN/1.73 SQ M.PREDICTED >90.0 Normal >60.0 [facility] Comment on above: Result Comment: Calc ulation based on the Chronic Kidney Disease Epidemiology Collaboration (CKD-EPI) equation refit without adjustment for race Performed By: #### L [id number] ####Vp Medical: ROSALVA LOPEZ ([id number])[facility] ([facility])[address] [place] [address] [place] Glucose [Mass/Vol] 104 mg/dL High 70-100 [facility] Comment on above: Performed By: #### L [id number] ####Vp Medical: ROSALVA LOPEZ ([id number])[facility] ([facility])[address] [place] [address] Potassium [Moles/Vol] 3.5 mmol/L Normal 3.5-5.1 [facility] Comment on above: Performed By: #### L [id number] ####Vp Medical: ROSALVA LOPEZ ([id number])[facility])[address] [place] [address] Sodium [Moles/Vol] 141 mmol/L Normal 135-145 [facility] Comment on above: Performed By: #### L [id number] ####Vp Medical: ROSALVA LOPEZ ([id number])[facility] ([facility])[address] [place] [address] Urea nitrogen [Mass/Vol] 21 mg/dL High 7-17 [facility] Comment on above: Performed By: #### L [id number] ####Vp Medical: ROSALVA LOPEZ ([id number])[facility])[address] [place] [address] BLOOD GAS, VENOUSon 02-01-20 24 Base excess Calc (BldV) [Moles/Vol] 6.0 mmol/L High -3.0-3.0 [facility] Comment on above: Performed By: #### L [id number] ####Vp Medical: ROSALVA LOPEZ ([id number])[facility])[address] [place] [address] [place] CO2 [Moles/Vol] 34.4 mmol/L High 24.0-28.0 [facility] Comment on above: Performed By: #### L [id number] ####Vp Medical: ROSALVA LOPEZ ([id number])[facility] [place] [address] HCO3 (Bld) [Moles/Vol] 32.6 mmol/L High 23.0-27.0 [facility] Comment on above: Performed By: #### L [id number] ####Vp Medical: ROSALVA LOPEZ ([id number])[facility])[address] [place] [address] Hemoglobin (Bld) [Mass/Vol] 9.2 g/dL Normal Screen only [facility] Comment on above: Performed By: #### L [id number] ####Vp Medical: ROSALVA LOPEZ ([id number])[facility])[address] [place] [address] OXYGEN (MM HG) IN VENOUS BLOOD 44.0 mm Hg Normal [facility] Comment on above: Performed By: #### L [id number] ####Vp Medical: ROSALVA LOPEZ ([id number])[facility])[address] [place] [address] OXYGEN SATURATION (%) IN VENOUS BLOOD 74.6 % Normal [facility] Comment on above: Performed By: #### L [id number] ####Vp Medical: ROSALVA LOPEZ ([id number])[facility])[address] [place] [address] PCO2, GÉNESIS 59.3 mm Hg High 40.0-55.0 [facility] Comment on above: Performed By: #### L [id number] ####Vp Medical: ROSALVA LOPEZ ([id number])[facility])[address] [place] [address] PH VENOUS 7.358 Normal 7.330-7.430 [facility] Comment on above: Performed By: #### L [id number] ####Vp Medical: ROSALVA LOPEZ ([id number])[facility])[address] [place] [address] SOURCE OF OXYGEN Vent Normal [facility] Comment on above: Result Comment: 40OR ABBIE COMMENTS:Assessment of oxygenation is best done with an arterial blood gas determination. Reference ranges for pO2, bicarbonate, and base excess are for mixed venous blood. Specimens drawn from a peripheral vein will often have higher values. Performed By: #### L [id number] ####Vp [employer]: ROSALVA LOPEZ ([id number])[facility] ([facility])[address] [place] [address] Basic metabolic 1998 panelon 02-01-2024 Anion gap [Moles/Vol] 3 mmol/L 3 - 13 mmol/L [facility] Calcium [Mass/Vol] 9.3 mg/dL 8.4 - 10. 4 mg/dL [facility] Chloride [Moles/Vol] 106 mmol/L 98 - 10 7 mmol/L [facility] CO2 [Moles/Vol] 32 mmol/L High 22 - 30 mmol/L [facility] Creatinine [Mass/Vol] 0.59 mg/dL 0.52 - 1.04 mg/dL [facility] GFR/1.73 sq M.predicted MDRD (S/P/Bld) [Vol rate/Area] - PINF [facility] Glucose [Mass/Vol] 104 mg/dL High 70 - 100 mg/dL [facility] Interpretation and review of laboratory results Abnormal [facility] Potassium [Moles/Vol] 3.5 mmol/L 3.5 - 5.1 mmol/L [facility] Sodium [Moles/Vol] 141 mmol/L 135 - 145 mmol/L [facility] Urea nitrogen [Mass/Vol] 21 mg/dL High 7 - 17 mg/dL [facility] CBC W Auto Differential pane l (Bld)on 02-01-2024 Basophils (Bld) [#/Vol] 0.0 10*3/uL 0.0 - 0.2 10*3/uL [facility] Basophils/100 WBC (Bld) 0.1 % 0.0 - 2.0 % [facility] Eosinophils (Bld) [#/Vol] 0.0 10*3/uL 0.0 - 0.5 10*3/uL [facility] Eosinophils/100 WBC (Bld) 0.1 % 0.0 - 6.0 % [facility] Erythrocyte distribution width (RBC) [Ratio] 14.9 % 11.5 - 15.0 % [facility] Hematocrit (Bld) [Volume fraction] 30.5 % Low 35.0 - 47.0 % [facility] Hemoglobin (Bld) [Mass/Vol] 9.3 g/dL Low 11.7 - 16.0 g/dL [facility] [employer] Immature granulocytes (Bld) [#/Vol] 0.1 10*3/uL High NINF - 0.1 10*3/uL [facility] Immature granulocytes/100 WBC (Bld) 0.4 % 0.0 - 2.0 % [facility] Interpretation and review of laboratory results Abnormal [facility] Lymphocytes (Bld) [#/Vol] 1.0 10*3/uL 1.0 - 4.3 10*3/uL [facility] Lymphocytes/100 WBC (Bld) 8.2 % Low 15.0 - 45.0 % [facility] MCH (RBC) [Entitic mass] 27.0 pg 26.0 - 34.0 pg [facility] MCHC (RBC) [Mass/Vol] 30.5 % 30.5 - 36.0 % [facility] MCV (RBC) [Entitic vol] 88.7 fL 77.0 - 99.0 fL [facility] Monocytes (Bld) [#/Vol] 0.9 10*3/uL 0.0 - 0.9 10*3/uL [facility] Monocytes/100 WBC (Bld) 7.6 % 5.0 - 13.0 % [facility] Neutrophils (Bld) [#/Vol] 10.4 10*3/uL High 1.8 - 7.5 10*3/uL [facility] Neutrophils/100 WBC (Bld) 83.6 % High 38.0 - 82.0 % [facility] Nucleated RBC/100 WBC (Bld) [Ratio] 0.0 % [facility] Platelet mean volume (Bld) [Entitic vol] 11.0 fL 9.0 - 12.7 fL [facility] Platelets (Bld) [#/Vol] 119 10*3/uL Low 140 - 440 10*3/uL [facility] RBC (Bld) [#/Vol] 3.44 10*6/uL Low 3.80 - 5.2 0 10*6/uL [facility] WBC (Bld) [#/Vol] 12.4 10*3/uL High 3.6 - 10.7 10*3/uL [facility] CBC WITH AUTO DIFFERENTIALon 02-01-2024 Basophils (Bld) [#/Vol] 0.0 10*3/uL Normal 0.0-0.2 [facility] Comment on above: Performed By: #### L [id number] ####[facility]: ROSALVA LOPEZ ([id number])[facility] ([facility])[address] [place] [address] Basophils/100 WBC (Bld) 0.1 % Normal 0.0-2.0 Mary [facility] Comment on above: Performed By: #### L [id number] ####Vp Medical: ROSALVA LOPEZ ([id number])[facility])[address] [place] [address] Eosinophils (Bld) [#/Vol] 0.0 10*3/uL Normal 0.0-0.5 [facility] Comment on above: Performed By: #### L [id number] ####Vp Medical: ROSALVA LOPEZ ([id number])[facility])[address] [place] [address] Eosinophils/100 WBC (Bld) 0.1 % Normal 0.0-6.0 [facility] Comment on above: Performed By: #### L [id number] ####Vp Medical: ROSALVA LOPEZ ([id number])[facility])[address] [place] [address] Erythrocyte distribution width (RBC) [Ratio] 14.9 % Normal 11.5-15.0 [facility] Comment on above: Performed By: #### L [id number] ####Vp Medical: ROSALVA LOPEZ ([id number])[facility])[address] [place] [address] Hematocrit (Bld) [Volume fraction] 30.5 % Low 35.0-47.0 [facility] Comment on above: Performed By: #### L [id number] ####Vp Medical: ROSALVA LOPEZ ([id number])[facility])[address] [place] [address] Hemoglobin (Bld) [Mass/Vol] 9.3 g/dL Low 11.7-16.0 [facility] Comment on above: Performed By: #### L [id number] ####Vp Medical: ROSALVA LOPEZ ([id number])[address] IMMATURE GRANS % 0.4 % Normal 0.0-2.0 [facility] Comment on above: Performed By: #### L [id number] ####Vp Medical: ROSALVA LOPEZ ([id number])[address] IMMATURE GRANS ABSOLUTE 0.1 10*3/uL High <0.1 [facility] Comment on above: Performed By: #### L [id number] ####Vp Medical: ROSALVA LOPEZ ([id number])[address] Lymphocytes (Bld) [#/Vol] 1.0 10*3/uL Normal 1.0-4.3 [facility] Comment on above: Performed By: #### L [id number] ####Vp Medical: ROSALVA LOPEZ ([id number])[address] Lymphocytes/100 WBC (Bld) 8.2 % Low 15.0-45.0 [facility] Comment on above: Performed By: #### L [id number] ####Vp Medical: ROSALVA LOPEZ ([id number])[address] MCH (RBC) [Entitic mass] 27.0 pg Normal 26.0-34.0 [facility] Comment on above: Performed By: #### L [id number] ####Vp Medical: ROSALVA LOPEZ ([id number])[address] MCHC 30.5 % Normal 30.5-36.0 [facility] Comment on above: Performed By: #### L [id number] ####Vp Medical: ROSALVA LOPEZ ([id number])[facility])[address] [place] [address] MCV (RBC) [Entitic vol] 88.7 fL Normal 77.0-99.0 [facility] Comment on above: Performed By: #### L [id number] ####Vp Medical: ROSALVA LOPEZ ([id number])[facility])[address] [place] [address] Monocytes (Bld) [#/Vol] 0.9 10*3/uL Normal 0.0-0.9 [facility] Comment on above: Performed By: #### L [id number] ####Vp Medical: ROSALVA LOPEZ ([id number])[facility])[address] [place] [address] Monocytes/100 WBC (Bld) 7.6 % Normal 5.0-13.0 [facility] Comment on above: Performed By: #### L [id number] ####Vp Medical: ROSALVA LOPEZ ([id number])[facility])[address] [place] [address] NEUTROPHILS ABSOLUTE 10.4 10*3/uL High 1.8-7.5 [facility] Comment on above: Performed By: #### L [id number] ####Vp Medical: ROSALVA LOPEZ ([id number])[facility])[address] [place] [address] Neutrophils/100 WBC (Bld) 83.6 % High 38.0-82.0 [facility] Comment on above: Performed By: #### L [id number] ####Vp Medical: ROSALVA LOPEZ ([id number])[facility])[address] [place] [address] NRBC 0.0 /100 WBCs Normal 0.0-2.0 [facility] Comment on above: Performed By: #### L [id number] ####Vp Medical: ROSALVA LOPEZ ([id number])[facility])[address] [place] [address] Platelet mean volume (Bld) [Entitic vol] 11.0 fL Normal 9.0-12.7 [facility] Comment on above: Performed By: #### L [id number] ####Vp Medical: ROSALVA LOPEZ ([id number])[facility])[address] [place] [address] Platelets (Bld) [#/Vol] 119 10*3/uL Low 140-440 [facility] Comment on above: Performed By: #### L [id number] ####Vp Medical: ROSALVA LOPEZ ([id number])[facility])[address] [place] [address] RBC (Bld) [#/Vol] 3.44 10*6/uL Low 3.80-5.20 [facility] Comment on above: Performed By: #### L [id number] ####Vp Medical: ROSALVA LOPEZ ([id number])[facility])[address] [place] [address] WBC (Bld) [#/Vol] 12.4 10*3/uL High 3.6-10.7 [facility] Comment on above: Performed By: #### L [id number] ####Vp Medical: ROSALVA LOPEZ ([id number])[facility])[address] [place] [address] IDNon 02-01-2024 IDN The patient is Moderately Unstable - Medium risk of patient condition declining or worsening The patient's goals for the shift include Feel Better The clinical goals for the shift include Trend CO2 on VBG's Normal [facility] Laboratory - Chemistry and C hemistry - challengeOrdered By: Chrystal Lakhani on 02-01-2024 Base excess Calc (BldV) [Moles/Vol] 6.0 mmol/L High -3.0 - 3.0 mmol/L [facility] CO2 (BldV) [Partial pressure] 59.3 mm[Hg] High [facility] CO2 [Moles/Vol] 34.4 mmol/L High 24.0 - 28.0 mmol/L [facility] HCO3 (Bld) [Moles/Vol] 32.6 mmol/L High 23.0 - 27.0 mmol/L [facility] Oxygen (BldV) [Partial pressure] 44.0 mm[Hg] mm Hg [facility] pH (BldV) 7.358 [pH] 7.330 - 7.430 [facility] Laboratory - Hematology and Cell countsOrdered By: Chrystal Lakhani on 02-01-2024 Hemoglobin (Bld) [Mass/Vol] 9.2 g/dL Screen only [facility] No Panel InformationOrdered By: Chrystal Lakhani on 02-01-2024 Interpretation and review of laboratory results Abnormal [facility] Source Of Oxygen Vent [facility] Progress Noteon 02-01-2024 Progress Note Normal [facility] Vital signsOrdered By: Chrystal Lakhani on 02-01-2024 Oxygen saturation in Venous blood 74.6 % [facility] BASIC METABOLIC PANELon 01-03 Anion gap [Moles/Vol] 4 mmol/L Normal 3-13 [facility] Comment on above: Performed By: #### L [id number] ####Vp Medical: ROSALVA LOPEZ ([id number])[facility])[address] [place] [address] Calcium [Mass/Vol] 8.8 mg/dL Normal 8.4-10.4 [facility] Comment on above: Performed By: #### L [id number] ####Vp Medical: ROSALVA LOPEZ ([id number])[facility])[address] [place] [address] Chloride [Moles/Vol] 103 mmol/L Normal 98-107 [facility] Comment on above: Performed By: #### L [id number] ####Vp Medical: ROSALVA LOPEZ ([id number])[facility])[address] [place] [address] [place] CO2 [Moles/Vol] 34 mmol/L High -30 [facility] Comment on above: Performed By: #### L AB15 ####Vp Medical: ROSALVA LOPEZ ([id number])[facility] [place] [address] [place] Creatinine [Mass/Vol] 0.52 mg/dL Normal 0.52-1.04 [facility] Comment on above: Performed By: #### L AB15 ####Vp Medical: ROSALVA LOPEZ ([id number])[facility])[address] [place] [address] GLOMERULAR FILTRATION RATE ML/MIN/1.73 SQ M.PREDICTED >90.0 Normal >60.0 [facility] Comment on above: Result Comment: Calc ulation based on the Chronic Kidney Disease Epidemiology Collaboration (CKD-EPI) equation refit without adjustment for race Performed By: #### L AB15 ####Vp Medical: ROSALVA LOPEZ ([id number])[facility])[address] [place] [address] Glucose [Mass/Vol] 111 mg/dL High 70-100 [facility] Comment on above: Performed By: #### L AB15 ####Vp Medical: ROSALVA LOPEZ ([id number])[facility])[address] [place] [address] Potassium [Moles/Vol] 3.8 mmol/L Normal 3.5-5.1 [facility] Comment on above: Performed By: #### L AB15 ####Vp Medical: ROSALVA LOPEZ ([id number])[facility])[address] [place] [address] Sodium [Moles/Vol] 141 mmol/L Normal 135-145 [facility] Comment on above: Performed By: #### L AB15 ####Vp Medical: ROSALVA LOPEZ ([id number])[facility])[address] [place] [address] Urea nitrogen [Mass/Vol] 14 mg/dL Normal 7-17 [facility] Comment on above: Performed By: #### L AB15 ####Vp Medical: ROSALVA LOPEZ ([id number])[facility])[address] [place] [address] BLOOD GAS, VENOUSon 01-31-20 24 Base excess Calc (BldV) [Moles/Vol] 5.9 mmol/L High -3.0-3.0 [facility] Comment on above: Performed By: #### L [id number] ####Vp Medical: ROSALVA LOPEZ ([id number])[facility])[address] [place] [address] CO2 [Moles/Vol] 34.8 mmol/L High 24.0-28.0 [facility] Comment on above: Performed By: #### L [id number] ####Vp Medical: ROSALVA LOPEZ ([id number])[facility])[address] [place] [address] HCO3 (Bld) [Moles/Vol] 32.9 mmol/L High 23.0-27.0 [facility] Comment on above: Performed By: #### L [id number] ####Vp Medical: ROSALVA LOPEZ ([id number])[facility])[address] [place] [address] Hemoglobin (Bld) [Mass/Vol] 9.6 g/dL Normal Screen only [facility] Comment on above: Performed By: #### L [id number] ####Vp Medical: ROSALVA LOPEZ ([id number])[facility])[address] [place] [address] OXYGEN (MM HG) IN VENOUS BLOOD 44.4 mm Hg Normal [facility] Comment on above: Performed By: #### L [id number] ####Vp Medical: ROSALVA LOPEZ ([id number])[facility])[address] [place] [address] OXYGEN SATURATION (%) IN VENOUS BLOOD 74.7 % Normal [facility] Comment on above: Performed By: #### L [id number] ####Vp Medical: ROSALVA [id number])[facility])[address] [place] [address] [place] PCO2, GÉNESIS 62.4 mm Hg High 40.0-55.0 [facility] Comment on above: Performed By: #### L [id number] ####Vp Medical: ROSALVA [id number])[facility])[address] [place] [address] PH VENOUS 7.340 Normal 7.330-7.430 [facility] Comment on above: Performed By: #### L AB79 ####Vp Medical: ROSALVA LOPEZ ([id number])[facility])[address] [place] [address] SOURCE OF OXYGEN Normal [facility] Comment on above: Result Comment: 7L t gume maskORDER COMMENTS:Assessment of oxygenation is best done with an arterial blood gas determination. Reference ranges for pO2, bicarbonate, and base excess are for mixed venous blood. Specimens drawn from a peripheral vein will often have higher values. Performed By: #### L [id number] ####Vp Medical: ROSALVA LOPEZ ([id number])[facility])[address] [place] [address] Base excess Calc (BldV) [Moles/Vol] 6.1 mmol/L High -3.0-3.0 [facility] Comment on above: Performed By: #### L [id number] ####Vp Medical: ROSALVA LOPEZ ([id number])[facility])[address] [place] [address] CO2 [Moles/Vol] 33.7 mmol/L High 24.0-28.0 [facility] Comment on above: Performed By: #### L [id number] ####Vp Medical: ROSALVA LOPEZ ([id number])[facility])[address] [place] [address] [place] HCO3 (Bld) [Moles/Vol] 32.0 mmol/L High 23.0-27.0 [facility] Comment on above: Performed By: #### L [id number] ####Vp Medical: ROSALVA LOPEZ ([id number])[facility])[address] [place] [address] Hemoglobin (Bld) [Mass/Vol] 9.5 g/dL Normal Screen only [facility] Comment on above: Performed By: #### L [id number] ####Vp Medical: ROSALVA [id number])[facility])[address] [place] [address] OXYGEN (MM HG) IN VENOUS BLOOD 37.4 mm Hg Normal [facility] Comment on above: Performed By: #### L [id number] ####Vp Medical: ROSALVA LOPEZ ([id number])[facility])[address] [place] [address] OXYGEN SATURATION (%) IN VENOUS BLOOD 69.9 % Normal [facility] Comment on above: Performed By: #### L [id number] ####Vp Medical: ROSALVA LOPEZ ([id number])[facility])[address] [place] [address] PCO2, GÉNESIS 54.4 mm Hg Normal 40.0-55.0 [facility] Comment on above: Performed By: #### L [id number] ####Vp Medical: ROSALVA LOPEZ ([id number])[facility])[address] [place] [address] PH VENOUS 7.388 Normal 7.330-7.430 [facility] Comment on above: Performed By: #### L AB79 ####Vp Medical: ROSALVA LOPEZ ([id number])[address] SOURCE OF OXYGEN 40% Oxygen Normal [facility] Comment on above: Result Comment: RAMY Champion COMMENTS:Assessment of oxygenation is best done with an arterial blood gas determination. Reference ranges for pO2, bicarbonate, and base excess are for mixed venous blood. Specimens drawn from a peripheral vein will often have higher values. Performed By: #### L [id number] ####Vp Medical: ROSALVA LOPEZ ([id number])[facility])[address] [place] [address] Base excess Calc (BldV) [Moles/Vol] 4.5 mmol/L High -3.0-3.0 [facility] Comment on above: Performed By: #### L AB79 ####Vp Medical: ROSALVA LOPEZ ([id number])[facility])[address] [place] [address] CO2 [Moles/Vol] 36.2 mmol/L High 24.0-28.0 [facility] Comment on above: Performed By: #### L [id number] ####Vp Medical: ROSALVA LOPEZ ([id number])[facility])[address] [place] [address] HCO3 (Bld) [Moles/Vol] 33.6 mmol/L High 23.0-27.0 [facility] Comment on above: Performed By: #### L AB79 ####Vp Medical: ROSALVA LOPEZ ([id number])[facility])[address] [place] [address] Hemoglobin (Bld) [Mass/Vol] 9.8 g/dL Normal Screen only [facility] Comment on above: Performed By: #### L [id number] ####Vp Medical: ROSALVA LOPEZ ([id number])[facility])[address] [place] [address] OXYGEN (MM HG) IN VENOUS BLOOD 49.9 mm Hg Normal [facility] Comment on above: Performed By: #### L [id number] ####Vp Medical: ROSALVA LOPEZ ([id number])[facility])[address] [place] [address] OXYGEN SATURATION (%) IN VENOUS BLOOD 79.2 % Normal [facility] Comment on above: Performed By: #### L [id number] ####Vp Medical: ROSALVA LOPEZ ([id number])[facility])[address] [place] [address] PCO2, GÉNESIS 81.8 mm Hg High 40.0-55.0 [facility] Comment on above: Performed By: #### L [id number] ####Vp Medical: ROSALVA LOPEZ ([id number])[facility])[address] [place] [address] PH VENOUS 7.232 Low 7.330-7.430 [facility] Comment on above: Performed By: #### L [id number] ####Vp Medical: ROSALVA LOPEZ ([id number])[facility] ([facility])[address] [place] [address] SOURCE OF OXYGEN 40% Oxygen Normal [facility] Comment on above: Result Comment: vent ORDER COMMENTS:Assessment of oxygenation is best done with an arterial blood gas determination. Reference ranges for pO2, bicarbonate, and base excess are for mixed venous blood. Specimens drawn from a peripheral vein will often have higher values. Performed By: #### L [id number] ####Vp Medical: ROSALVA LOPEZ ([id number])[facility] ([facility])[address] [place] [address] Bacteria identified Aer cx N om (Lower resp)Ordered By: Malvin Damon on 01-31-2024 Gram Stain Result Moderate Polymorphonuclear leukocytes per low power field Abnormal [facility] Gram Stain Result Few Epithelial cells per low power field Abnormal [facility] Gram Stain Result Positive Abnormal [facility] Gram Stain Result Negative Abnormal [facility] Interpretation and review of laboratory results Abnormal [facility] Basic metabolic 1998 panelon 01-31-2024 Anion gap [Moles/Vol] 4 mmol/L 3 - 13 mmol/L [facility] Calcium [Mass/Vol] 8.8 mg/dL 8.4 - 10. 4 mg/dL [facility] Chloride [Moles/Vol] 103 mmol/L 98 - 10 7 mmol/L [facility] CO2 [Moles/Vol] 34 mmol/L High 22 - 30 mmol/L [facility] Creatinine [Mass/Vol] 0.52 mg/dL 0.52 - 1.04 mg/dL [facility] GFR/1.73 sq M.predicted MDRD (S/P/Bld) [Vol rate/Area] - PINF [facility] Glucose [Mass/Vol] 111 mg/dL High 70 - 100 mg/dL [facility] Interpretation and review of laboratory results Abnormal [facility] Potassium [Moles/Vol] 3.8 mmol/L 3.5 - 5.1 mmol/L [facility] Sodium [Moles/Vol] 141 mmol/L 135 - 145 mmol/L [facility] Urea nitrogen [Mass/Vol] 14 mg/dL 7 - 17 mg/dL [facility] CBC W Auto Differential pane l (Bld)Ordered By: Jenni Marsh on 01-31-2024 Basophils (Bld) [#/Vol] 0.0 10*3/uL 0.0 - 0.2 10*3/uL [facility] Basophils/100 WBC (Bld) 0.2 % 0.0 - 2.0 % [facility] Eosinophils (Bld) [#/Vol] 0.0 10*3/uL 0.0 - 0.5 10*3/uL [facility] Eosinophils/100 WBC (Bld) 0.1 % 0.0 - 6.0 % [facility] Erythrocyte distribution width (RBC) [Ratio] 14.6 % 11.5 - 15.0 % [facility] Hematocrit (Bld) [Volume fraction] 30.7 % Low 35.0 - 47.0 % [facility] Hemoglobin (Bld) [Mass/Vol] 9.1 g/dL Low 11.7 - 16.0 g/dL [facility] Immature granulocytes (Bld) [#/Vol] 0.1 10*3/uL High NINF - 0.1 10*3/uL [facility] Immature granulocytes/100 WBC (Bld) 0.4 % 0.0 - 2.0 % [facility] Interpretation and review of laboratory results Abnormal [facility] Lymphocytes (Bld) [#/Vol] 1.0 10*3/uL 1.0 - 4.3 10*3/uL [facility] Lymphocytes/100 WBC (Bld) 8.9 % Low 15.0 - 45.0 % [facility] MCH (RBC) [Entitic mass] 26.8 pg 26.0 - 34.0 pg [facility] MCHC (RBC) [Mass/Vol] 29.6 % Low 30.5 - 36.0 % [facility] MCV (RBC) [Entitic vol] 90.3 fL 77.0 - 99.0 fL [facility] Monocytes (Bld) [#/Vol] 1.0 10*3/uL High 0.0 - 0.9 10*3/uL [facility] Monocytes/100 WBC (Bld) 8.9 % 5.0 - 13.0 % [facility] Neutrophils (Bld) [#/Vol] 9.4 10*3/uL High 1.8 - 7.5 10*3/uL [facility] Neutrophils/100 WBC (Bld) 81.5 % 38.0 - 82.0 % [facility] Nucleated RBC/100 WBC (Bld) [Ratio] 0.0 % [facility] Platelet mean volume (Bld) [Entitic vol] 10.3 fL 9.0 - 12.7 fL [facility] Platelets (Bld) [#/Vol] 159 10*3/uL 140 - 440 10*3/uL [facility] RBC (Bld) [#/Vol] 3.40 10*6/uL Low 3.80 - 5.2 0 10*6/uL [facility] WBC (Bld) [#/Vol] 11.5 10*3/uL High 3.6 - 10.7 10*3/uL [facility] CBC WITH AUTO DIFFERENTIALon 01-31-2024 Basophils (Bld) [#/Vol] 0.0 10*3/uL Normal 0.0-0.2 [facility] Comment on above: Performed By: #### L [id number] ####Vp Medical: ROSALVA LOPEZ ([id number])[facility])[address] [place] [address] Basophils/100 WBC (Bld) 0.2 % Normal 0.0-2.0 [facility] Comment on above: Performed By: #### L [id number] ####Vp Medical: ROSALVA LOPEZ ([id number])[facility])[address] [place] [address] Eosinophils (Bld) [#/Vol] 0.0 10*3/uL Normal 0.0-0.5 [facility] Comment on above: Performed By: #### L [id number] ####Vp Medical: ROSALVA LOPEZ ([id number])[facility])[address] [place] [address] Eosinophils/100 WBC (Bld) 0.1 % Normal 0.0-6.0 [facility] Comment on above: Performed By: #### L [id number] ####Vp Medical: ROSALVA LOPEZ ([id number])[facility])[address] [place] [address] Erythrocyte distribution width (RBC) [Ratio] 14.6 % Normal 11.5-15.0 [facility] Comment on above: Performed By: #### L [id number] ####Vp Medical: ROSALVA LOPEZ ([id number])[address] Hematocrit (Bld) [Volume fraction] 30.7 % Low 35.0-47.0 [facility] Comment on above: Performed By: #### L [id number] ####Vp Medical: ROSALVA LOPEZ ([id number])[facility])[address] [place] [address] Hemoglobin (Bld) [Mass/Vol] 9.1 g/dL Low 11.7-16.0 [facility] Comment on above: Performed By: #### L [id number] ####Vp Medical: ROSALVA LOPEZ ([id number])[address] IMMATURE GRANS % 0.4 % Normal 0.0-2.0 [facility] Comment on above: Performed By: #### L [id number] ####Vp Medical: ROSALVA LOPEZ ([id number])[address] IMMATURE GRANS ABSOLUTE 0.1 10*3/uL High <0.1 [facility] Comment on above: Performed By: #### L [id number] ####Vp Medical: ROSALVA LOPEZ ([id number])[address] Lymphocytes (Bld) [#/Vol] 1.0 10*3/uL Normal 1.0-4.3 [facility] Comment on above: Performed By: #### L [id number] ####Vp Medical: ROSALVA LOPEZ ([id number])[address] Lymphocytes/100 WBC (Bld) 8.9 % Low 15.0-45.0 [facility] Comment on above: Performed By: #### L [id number] ####[facility]: ROSALVA LOPEZ ([id number])[facility])[address] [place] [address] MCH (RBC) [Entitic mass] 26.8 pg Normal 26.0-34.0 [facility] Comment on above: Performed By: #### L [id number] ####[facility]: ROSALVA LOPEZ ([id number])[facility])[address] [place] [address] MCHC 29.6 % Low 30.5-36.0 [facility] Comment on above: Performed By: #### L [id number] ####[facility]: ROSALVA LOPEZ ([id number])[facility])[address] [place] [address] MCV (RBC) [Entitic vol] 90.3 fL Normal 77.0-99.0 [facility] Comment on above: Performed By: #### L [id number] ####[facility]: ROSALVA LOPEZ ([id number])[facility])[address] [place] [address] Monocytes (Bld) [#/Vol] 1.0 10*3/uL High 0.0-0.9 [facility] Comment on above: Performed By: #### L [id number] ####[facility]: ROSALVA LOPEZ ([id number])[facility])[address] [place] [address] Monocytes/100 WBC (Bld) 8.9 % Normal 5.0-13.0 [facility] Comment on above: Performed By: #### L [id number] ####[facility]: ROSALVA LOPEZ ([id number])[facility])[address] [place] [address] NEUTROPHILS ABSOLUTE 9.4 10*3/uL High 1.8-7.5 [facility] Comment on above: Performed By: #### L [id number] ####Vp Medical: ROSALVA LOPEZ ([id number])[facility])[address] [place] [address] Neutrophils/100 WBC (Bld) 81.5 % Normal 38.0-82.0 [facility] Comment on above: Performed By: #### L [id number] ####Vp Medical: ROSALVA LOPEZ ([id number])[facility])[address] [place] [address] NRBC 0.0 /100 WBCs Normal 0.0-2.0 [facility] Comment on above: Performed By: #### L [id number] ####Vp Medical: ROSALVA LOPEZ ([id number])[facility] ([facility])[address] [place] [address] Platelet mean volume (Bld) [Entitic vol] 10.3 fL Normal 9.0-12.7 [facility] Comment on above: Performed By: #### L [id number] ####Vp Medical: ROSALVA LOPEZ ([id number])[facility] ([facility])[address] [place] [address] Platelets (Bld) [#/Vol] 159 10*3/uL Normal 140-440 [facility] Comment on above: Performed By: #### L [id number] ####Vp Medical: ROSALVA LOPEZ ([id number])[facility])[address] [place] [address] RBC (Bld) [#/Vol] 3.40 10*6/uL Low 3.80-5.20 [facility] Comment on above: Performed By: #### L [id number] ####Vp Medical: ROSALVA LOPEZ ([id number])[facility])[address] [place] [address] WBC (Bld) [#/Vol] 11.5 10*3/uL High 3.6-10.7 [facility] Comment on above: Performed By: #### L [id number] ####Vp Medical: ROSALVA LOPEZ ([id number])[facility])[address] [place] [address] CT HEAD WO IV CONTRASTon CT HEAD WO IV CONTRAST Normal [facility] CT Head WO contraston 2023 [facility] RADIOLOGY [facility] Radiology Study observation (narrative) [facility] CT Head WO contrastOrdered B y: Justen Howard on 01-31-2024 [facility] Work Phone: Consulton 01-31-2024 Consult Normal [facility] Laboratory - Chemistry and C hemistry - challengeOrdered By: Carla Vegas on 01-31-2024 Base excess Calc (BldV) [Moles/Vol] 5.9 mmol/L High -3.0 - 3.0 mmol/L [facility] CO2 (BldV) [Partial pressure] 62.4 mm[Hg] High [facility] CO2 [Moles/Vol] 34.8 mmol/L High 24.0 - 28.0 mmol/L [facility] HCO3 (Bld) [Moles/Vol] 32.9 mmol/L High 23.0 - 27.0 mmol/L [facility] Oxygen (BldV) [Partial pressure] 44.4 mm[Hg] mm Hg [facility] pH (BldV) 7.340 [pH] 7.330 - 7.430 [facility] Laboratory - Chemistry and C hemistry - challengeon 01-31-2024 Base excess Calc (BldV) [Moles/Vol] 6.1 mmol/L High -3.0 - 3.0 mmol/L [facility] CO2 (BldV) [Partial pressure] 54.4 mm[Hg] [facility] CO2 [Moles/Vol] 33.7 mmol/L High 24.0 - 28.0 mmol/L [facility] HCO3 (Bld) [Moles/Vol] 32.0 mmol/L High 23.0 - 27.0 mmol/L [facility] Oxygen (BldV) [Partial pressure] 37.4 mm[Hg] mm Hg [facility] pH (BldV) 7.388 [pH] 7.330 - 7.430 [facility] Base excess Calc (BldV) [Moles/Vol] 4.5 mmol/L High -3.0 - 3.0 mmol/L [facility] CO2 (BldV) [Partial pressure] 81.8 mm[Hg] High [facility] CO2 [Moles/Vol] 36.2 mmol/L High 24.0 - 28.0 mmol/L [facility] HCO3 (Bld) [Moles/Vol] 33.6 mmol/L High 23.0 - 27.0 mmol/L [facility] Oxygen (BldV) [Partial pressure] 49.9 mm[Hg] mm Hg [facility] pH (BldV) 7.232 [pH] Low 7.330 - 7.430 [facility] Laboratory - Drug toxicology on 01-31-2024 Vancomycin trough [Mass/Vol] 30.0 ug/mL High 15.0 - 20.0 ug/mL [facility] Laboratory - Hematology and Cell countsOrdered By: Carla Vegas on 01-31-2024 Hemoglobin (Bld) [Mass/Vol] 9.6 g/dL Screen only [facility] Laboratory - Hematology and Cell countson 01-31-2024 Hemoglobin (Bld) [Mass/Vol] 9.5 g/dL Screen only [facility] Hemoglobin (Bld) [Mass/Vol] 9.8 g/dL Screen only [facility] Laboratory - Microbiology an d Antimicrobial susceptibilityOrdered By: Malvin Damon on 01-31-2024 Bacteria identified Aer cx Nom (Lower resp) Few respiratory ailyn present. [facility] Bacteria identified Aer cx Nom (Lower resp) Moderate Pseudomonas aeruginosa Abnormal [facility] No Panel InformationOrdered By: Carla Vegas on 01-31-2024 Interpretation and review of laboratory results Abnormal [facility] Source Of Oxygen [facility] No Panel Informationon 01-30 Interpretation and review of laboratory results Abnormal [facility] Source Of Oxygen 40% Oxygen [facility] Interpretation and review of laboratory results Abnormal [facility] Source Of Oxygen 40% Oxygen [facility] Progress Noteon 01-31-2024 Progress Note Normal [facility] Progress Note Normal [facility] Progress Note Normal [facility] Progress Note Normal [facility] VANCOMYCIN, AUC TIMED DOSING on 01-31-2024 VANCOMYCIN, AUC 30.0 ug/mL High 15.0-20.0 [facility] Comment on above: Order Comment: Pleas e draw random level at least >2 hours after the end of the last vancomycin infusion, or 30-minutes before next infusion. Performed By: #### L [id number] ####Vp Medical: ROSALVA LOPEZ ([id number])[facility])[address] [place] [address] [place] Vancomycin trough [Mass/Vol] on 01-31-2024 Interpretation and review of laboratory results Abnormal [facility] Vital signsOrdered By: Carla Vegas on 01-31-2024 Oxygen saturation in Venous blood 74.7 % [facility] Vital signson 01-31-2024 Oxygen saturation in Venous blood 69.9 % [facility] Oxygen saturation in Venous blood 79.2 % [facility] 25-hydroxyvitamin D3 [Mass/V ol]on 01-30-2024 Interpretation and review of laboratory results Normal [facility] BASIC METABOLIC PANELon 01-03 Anion gap [Moles/Vol] 3 mmol/L Normal 3-13 [facility] Comment on above: Performed By: #### L [id number] ####Vp Medical: ROSALVA LOPEZ ([id number])[facility])[address] [place] [address] Calcium [Mass/Vol] 8.8 mg/dL Normal 8.4-10.4 [facility] Comment on above: Performed By: #### L [id number] ####Vp Medical: ROSALVA LOPEZ ([id number])[facility])[address] [place] [address] Chloride [Moles/Vol] 104 mmol/L Normal 98-107 [facility] Comment on above: Performed By: #### L [id number] ####Vp Medical: ROSALVA LOPEZ ([id number])[facility])[address] [place] [address] [place] CO2 [Moles/Vol] 35 mmol/L High 22-30 [facility] Comment on above: Performed By: #### L [id number] ####Vp Medical: ROSLAVA LOPEZ ([id number])[facility])[address] [place] [address] Creatinine [Mass/Vol] 0.61 mg/dL Normal 0.52-1.04 [facility] Comment on above: Performed By: #### L [id number] ####Vp Medical: ROSALVA LOPEZ ([id number])[facility])[address] [place] [address] GLOMERULAR FILTRATION RATE ML/MIN/1.73 SQ M.PREDICTED >90.0 Normal >60.0 [facility] Comment on above: Result Comment: Calc ulation based on the Chronic Kidney Disease Epidemiology Collaboration (CKD-EPI) equation refit without adjustment for race Performed By: #### L [id number] ####Vp Medical: ROSALVA LOPEZ ([id number])[facility])[address] [place] [address] Glucose [Mass/Vol] 153 mg/dL High 70-100 [facility] Comment on above: Performed By: #### L [id number] ####Vp Medical: ROSALVA LOPEZ ([id number])[facility])[address] [place] [address] Potassium [Moles/Vol] 4.0 mmol/L Normal 3.5-5.1 [facility] Comment on above: Performed By: #### L [id number] ####Vp Medical: ROSALVA LOPEZ ([id number])[facility])[address] [place] [address] Sodium [Moles/Vol] 141 mmol/L Normal 135-145 [facility] Comment on above: Performed By: #### L [id number] ####Vp Medical: ROSALVA LOPEZ ([id number])[facility])[address] [place] [address] Urea nitrogen [Mass/Vol] 22 mg/dL High 7-17 [facility] Comment on above: Performed By: #### L [id number] ####Vp Medical: ROSALVA LOPEZ ([id number])[facility])[address] [place] [address] BLOOD GAS, VENOUSon 01-30-20 24 Base excess Calc (BldV) [Moles/Vol] 8.9 mmol/L High -3.0-3.0 [facility] Comment on above: Performed By: #### L [id number] ####Vp Medical: ROSALVA LOPEZ ([id number])[facility])[address] [place] [address] [place] CO2 [Moles/Vol] 36.1 mmol/L High 24.0-28.0 [facility] Comment on above: Performed By: #### L [id number] ####Vp Medical: ROSALVA LOPEZ ([id number])[facility])[address] [place] [address] HCO3 (Bld) [Moles/Vol] 34.5 mmol/L High 23.0-27.0 [facility] Comment on above: Performed By: #### L [id number] ####Vp Medical: ROSALVA LOPEZ ([id number])[facility])[address] [place] [address] Hemoglobin (Bld) [Mass/Vol] 9.9 g/dL Normal Screen only [facility] Comment on above: Performed By: #### L [id number] ####Vp Medical: ROSALVA LOPEZ ([id number])[facility])[address] [place] [address] OXYGEN (MM HG) IN VENOUS BLOOD 35.4 mm Hg Normal [facility] Comment on above: Performed By: #### L [id number] ####Vp Medical: ROSALVA LOPEZ ([id number])[facility])[address] [place] [address] OXYGEN SATURATION (%) IN VENOUS BLOOD 68.3 % Normal [facility] Comment on above: Performed By: #### L [id number] ####Vp Medical: ROSALVA LOPEZ ([id number])[facility])[address] [place] [address] [place] PCO2, GÉNESIS 53.0 mm Hg Normal 40.0-55.0 [facility] Comment on above: Performed By: #### L [id number] ####Vp Medical: ROSALVA LOPEZ ([id number])[facility])[address] [place] [address] [place] PH VENOUS 7.431 High 7.330-7.430 [facility] Comment on above: Performed By: #### L [id number] ####Vp Medical: ROSALVA LOPEZ ([id number])[facility])[address] [place] [address] SOURCE OF OXYGEN 50% Oxygen Normal [facility] Comment on above: Result Comment: RAMY Champion COMMENTS:Assessment of oxygenation is best done with an arterial blood gas determination. Reference ranges for pO2, bicarbonate, and base excess are for mixed venous blood. Specimens drawn from a peripheral vein will often have higher values. Performed By: #### L [id number] ####Vp Medical: ROSALVA LOPEZ ([id number])[facility])[address] [place] [address] Base excess Calc (BldV) [Moles/Vol] 8.6 mmol/L High -3.0-3.0 [facility] Comment on above: Performed By: #### L [id number] ####Vp Medical: ROSALVA LOPEZ ([id number])[facility])[address] [place] [address] CO2 [Moles/Vol] 35.4 mmol/L High 24.0-28.0 [facility] Comment on above: Performed By: #### L [id number] ####Vp Medical: ROSALVA LOPEZ ([id number])[facility])[address] [place] [address] HCO3 (Bld) [Moles/Vol] 33.8 mmol/L High 23.0-27.0 [facility] Comment on above: Performed By: #### L [id number] ####Vp Medical: ROSALVA LOPEZ ([id number])[facility])[address] [place] [address] Hemoglobin (Bld) [Mass/Vol] 9.9 g/dL Normal Screen only [facility] Comment on above: Performed By: #### L [id number] ####Vp Medical: ROSALVA LOPEZ ([id number])[facility])[address] [place] [address] [place] OXYGEN (MM HG) IN VENOUS BLOOD 36.7 mm Hg Normal [facility] Comment on above: Performed By: #### L [id number] ####Vp Medical: ROSALVA LOPEZ ([id number])[facility])[address] [place] [address] OXYGEN SATURATION (%) IN VENOUS BLOOD 73.5 % Normal [facility] Comment on above: Performed By: #### L [id number] ####Vp Medical: ROSALVA LOPEZ ([id number])[facility])[address] [place] [address] [place] PCO2, GÉNESIS 50.5 mm Hg Normal 40.0-55.0 [facility] Comment on above: Performed By: #### L [id number] ####Vp Medical: ROSALVA LOPEZ ([id number])[facility])[address] [place] [address] PH VENOUS 7.444 High 7.330-7.430 [facility] Comment on above: Performed By: #### L [id number] ####Vp Medical: ROSALVA LOPEZ ([id number])[facility])[address] [place] [address] SOURCE OF OXYGEN 60% Oxygen Normal [facility] Comment on above: Result Comment: RAMY Champion COMMENTS:Assessment of oxygenation is best done with an arterial blood gas determination. Reference ranges for pO2, bicarbonate, and base excess are for mixed venous blood. Specimens drawn from a peripheral vein will often have higher values. Performed By: #### L [id number] ####Vp Medical: ROSALVA LOPEZ ([id number])[facility])[address] [place] [address] [place] Base excess Calc (BldV) [Moles/Vol] 4.7 mmol/L High -3.0-3.0 [facility] Comment on above: Performed By: #### L [id number] ####Vp Medical: ROSALVA LOPEZ ([id number])[facility])[address] [place] [address] [place] CO2 [Moles/Vol] 35.9 mmol/L High 24.0-28.0 [facility] Comment on above: Performed By: #### L [id number] ####Vp Medical: ROSALVA LOPEZ ([id number])[facility])[address] [place] [address] HCO3 (Bld) [Moles/Vol] 33.5 mmol/L High 23.0-27.0 [facility] Comment on above: Performed By: #### L [id number] ####Vp Medical: ROSALVA LOPEZ ([id number])[facility])[address] [place] [address] Hemoglobin (Bld) [Mass/Vol] 10.4 g/dL Normal Screen only [facility] Comment on above: Performed By: #### L [id number] ####Vp Medical: ROSALVA LOPEZ ([id number])[facility])[address] [place] [address] OXYGEN (MM HG) IN VENOUS BLOOD 44.8 mm Hg Normal [facility] Comment on above: Performed By: #### L [id number] ####Vp Medical: ROSALVA LOPEZ ([id number])[facility])[address] [place] [address] OXYGEN SATURATION (%) IN VENOUS BLOOD 74.9 % Normal [facility] Comment on above: Performed By: #### L [id number] ####Vp Medical: ROSALVA LOPEZ ([id number])[facility])[address] [place] [address] PCO2, GÉNESIS 76.4 mm Hg High 40.0-55.0 [facility] Comment on above: Performed By: #### L [id number] ####Vp Medical: ROSALVA LOPEZ ([id number])[facility])[address] [place] [address] PH VENOUS 7.260 Low 7.330-7.430 [facility] Comment on above: Performed By: #### L [id number] ####Vp Medical: ROSALVA LOPEZ ([id number])[facility])[address] [place] [address] SOURCE OF OXYGEN 60% Oxygen Normal [facility] Comment on above: Result Comment: vent ORDER COMMENTS:Assessment of oxygenation is best done with an arterial blood gas determination. Reference ranges for pO2, bicarbonate, and base excess are for mixed venous blood. Specimens drawn from a peripheral vein will often have higher values. Performed By: #### L [id number] ####Vp Medical: ROSALVA LOPEZ ([id number])[facility] ([id number] Basic metabolic 1998 panelon 01-30-2024 Anion gap [Moles/Vol] 3 mmol/L 3 - 13 mmol/L [facility] Calcium [Mass/Vol] 8.8 mg/dL 8.4 - 10. 4 mg/dL [facility] Chloride [Moles/Vol] 104 mmol/L 98 - 10 7 mmol/L [facility] CO2 [Moles/Vol] 35 mmol/L High 22 - 30 mmol/L [facility] Creatinine [Mass/Vol] 0.61 mg/dL 0.52 - 1.04 mg/dL [facility] GFR/1.73 sq M.predicted MDRD (S/P/Bld) [Vol rate/Area] - PINF [facility] Glucose [Mass/Vol] 153 mg/dL High 70 - 100 mg/dL [facility] Interpretation and review of laboratory results Abnormal [facility] Potassium [Moles/Vol] 4.0 mmol/L 3.5 - 5.1 mmol/L [facility] Sodium [Moles/Vol] 141 mmol/L 135 - 145 mmol/L [facility] Urea nitrogen [Mass/Vol] 22 mg/dL High 7 - 17 mg/dL [facility] CBC W Auto Differential pane l (Bld)Ordered By: Braxton Frausto on 01-30-2024 Basophils (Bld) [#/Vol] 0.0 10*3/uL 0.0 - 0.2 10*3/uL [facility] Basophils/100 WBC (Bld) 0.3 % 0.0 - 2.0 % [facility] Eosinophils (Bld) [#/Vol] 0.1 10*3/uL 0.0 - 0.5 10*3/uL [facility] Eosinophils/100 WBC (Bld) 1.2 % 0.0 - 6.0 % [facility] Erythrocyte distribution width (RBC) [Ratio] 14.2 % 11.5 - 15.0 % [facility] [employer] Hematocrit (Bld) [Volume fraction] 31.8 % Low 35.0 - 47.0 % [facility] Hemoglobin (Bld) [Mass/Vol] 9.3 g/dL Low 11.7 - 16.0 g/dL [facility] [employer] Immature granulocytes (Bld) [#/Vol] 0.0 10*3/uL NINF - 0.1 10*3/uL [facility] Immature granulocytes/100 WBC (Bld) 0.3 % 0.0 - 2.0 % [facility] Interpretation and review of laboratory results Abnormal [facility] Lymphocytes (Bld) [#/Vol] 1.8 10*3/uL 1.0 - 4.3 10*3/uL [facility] Lymphocytes/100 WBC (Bld) 18.1 % 15.0 - 45.0 % [facility] MCH (RBC) [Entitic mass] 26.9 pg 26.0 - 34.0 pg [facility] [employer] MCHC (RBC) [Mass/Vol] 29.2 % Low 30.5 - 36.0 % [facility] [employer] MCV (RBC) [Entitic vol] 91.9 fL 77.0 - 99.0 fL [facility] [employer] Monocytes (Bld) [#/Vol] 1.1 10*3/uL High 0.0 - 0.9 10*3/uL [facility] Monocytes/100 WBC (Bld) 10.9 % 5.0 - 13.0 % [facility] Neutrophils (Bld) [#/Vol] 6.8 10*3/uL 1.8 - 7.5 10*3/uL [facility] Neutrophils/100 WBC (Bld) 69.2 % 38.0 - 82.0 % [facility] [employer] Nucleated RBC/100 WBC (Bld) [Ratio] 0.0 % [facility] [employer] Platelet mean volume (Bld) [Entitic vol] 10.0 fL 9.0 - 12.7 fL [facility] Platelets (Bld) [#/Vol] 189 10*3/uL 140 - 440 10*3/uL [facility] RBC (Bld) [#/Vol] 3.46 10*6/uL Low 3.80 - 5.2 0 10*6/uL [facility] WBC (Bld) [#/Vol] 9.8 10*3/uL 3.6 - 10.7 10*3/uL [facility] CBC WITH AUTO DIFFERENTIALon 01-30-2024 Basophils (Bld) [#/Vol] 0.0 10*3/uL Normal 0.0-0.2 [facility] Comment on above: Performed By: #### L [id number] ####Vp Medical: ROSALVA LOPEZ ([id number])[facility])[address] [place] [address] Basophils/100 WBC (Bld) 0.3 % Normal 0.0-2.0 [facility] Comment on above: Performed By: #### L [id number] ####Vp Medical: ROSALVA LOPEZ ([id number])[facility])[address] [place] [address] Eosinophils (Bld) [#/Vol] 0.1 10*3/uL Normal 0.0-0.5 [facility] Comment on above: Performed By: #### L [id number] ####Vp Medical: ROSALVA LOPEZ ([id number])[facility])[address] [place] [address] Eosinophils/100 WBC (Bld) 1.2 % Normal 0.0-6.0 [facility] Comment on above: Performed By: #### L [id number] ####Vp Medical: ROSALVA LOPEZ ([id number])[facility])[address] [place] [address] Erythrocyte distribution width (RBC) [Ratio] 14.2 % Normal 11.5-15.0 [facility] Comment on above: Performed By: #### L [id number] ####Vp Medical: ROSALVA LOPEZ ([id number])[facility])[address] [place] [address] Hematocrit (Bld) [Volume fraction] 31.8 % Low 35.0-47.0 [facility] Comment on above: Performed By: #### L [id number] ####Vp Medical: ROSALVA LOPEZ ([id number])[facility])[address] [place] [address] Hemoglobin (Bld) [Mass/Vol] 9.3 g/dL Low 11.7-16.0 [facility] Comment on above: Performed By: #### L [id number] ####Vp Medical: ROSALVA LOPEZ ([id number])[facility])[address] [place] [address] IMMATURE GRANS % 0.3 % Normal 0.0-2.0 [facility] Comment on above: Performed By: #### L [id number] ####Vp Medical: ROSALVA LOPEZ ([id number])[facility])[address] [place] [address] IMMATURE GRANS ABSOLUTE 0.0 10*3/uL Normal <0.1 [facility] Comment on above: Performed By: #### L [id number] ####Vp Medical: ROSALVA LOPEZ ([id number])[facility])[address] [place] [address] Lymphocytes (Bld) [#/Vol] 1.8 10*3/uL Normal 1.0-4.3 [facility] Comment on above: Performed By: #### L [id number] ####Vp Medical: ROSALVA LOPEZ ([id number])[facility])[address] [place] [address] Lymphocytes/100 WBC (Bld) 18.1 % Normal 15.0-45.0 [facility] Comment on above: Performed By: #### L [id number] ####Vp Medical: ROSALVA LOPEZ ([id number])[facility])[address] [place] [address] MCH (RBC) [Entitic mass] 26.9 pg Normal 26.0-34.0 [facility] Comment on above: Performed By: #### L [id number] ####Vp Medical: ROSALVA LOPEZ ([id number])[facility])[address] [place] [address] MCHC 29.2 % Low 30.5-36.0 [facility] Comment on above: Performed By: #### L [id number] ####Vp Medical: ROSALVA LOPEZ ([id number])[facility])[address] [place] [address] MCV (RBC) [Entitic vol] 91.9 fL Normal 77.0-99.0 [facility] Comment on above: Performed By: #### L [id number] ####Vp Medical: ROSALVA LOPEZ ([id number])[facility])[address] [place] [address] Monocytes (Bld) [#/Vol] 1.1 10*3/uL High 0.0-0.9 [facility] Comment on above: Performed By: #### L [id number] ####[facility] Medical: ROSALVA LOPEZ ([id number])[facility] ([facility])[address] [place] [address] Monocytes/100 WBC (Bld) 10.9 % Normal 5.0-13.0 [facility] Comment on above: Performed By: #### L [id number] ####[facility] Medical: ROSALVA LOPEZ ([id number])[facility])[address] [place] [address] NEUTROPHILS ABSOLUTE 6.8 10*3/uL Normal 1.8-7.5 [facility] Comment on above: Performed By: #### L [id number] ####Vp Medical: ROSALVA LOPEZ ([id number])[facility])[address] [place] [address] Neutrophils/100 WBC (Bld) 69.2 % Normal 38.0-82.0 [facility] Comment on above: Performed By: #### L [id number] ####Vp Medical: ROSALVA LOPEZ ([id number])[facility])[address] [place] [address] NRBC 0.0 /100 WBCs Normal 0.0-2.0 [facility] Comment on above: Performed By: #### L [id number] ####Vp Medical: ROSALVA LOPEZ ([id number])[facility] ([facility])[address] [place] [address] Platelet mean volume (Bld) [Entitic vol] 10.0 fL Normal 9.0-12.7 [facility] Comment on above: Performed By: #### L [id number] ####Vp Medical: ROSALVA LOPEZ ([id number])[facility] ([facility])[address] [place] [address] Platelets (Bld) [#/Vol] 189 10*3/uL Normal 140-440 [facility] Comment on above: Performed By: #### L [id number] ####Vp Medical: ROSALVA LOPEZ ([id number])[facility] ([facility])[address] [place] [address] RBC (Bld) [#/Vol] 3.46 10*6/uL Low 3.80-5.20 [facility] Comment on above: Performed By: #### L [id number] ####Vp Medical: ROSALVA LOPEZ ([id number])[facility] ([facility])[address] [place] [address] WBC (Bld) [#/Vol] 9.8 10*3/uL Normal 3.6-10.7 [facility] Comment on above: Performed By: #### L [id number] ####Vp Medical: ROSALVA LOPEZ ([id number])[facility])[address] [place] [address] Consulton 01-30-2024 Consult Consult acknowledged . Chart reviewed. Luiza May is a 68 y.o. female with who presented with seizures. Palliative Care consult requested for Goals of care. Patient will be seen 01/31/24 . Aris Lobo MD Normal [facility] Laboratory - Chemistry and C hemistry - challengeon 01-30-2024 Glucose [Mass/Vol] 239 mg/dL High 70 - 100 mg/dL [facility] 25-hydroxyvitamin D3 [Mass/Vol] 32 ng/mL 30 - 100 ng/mL [facility] Procalcitonin [Mass/Vol] 0.02 ng/mL 0.00 - 0.09 ng/mL [facility] Base excess Calc (BldV) [Moles/Vol] 8.6 mmol/L High -3.0 - 3.0 mmol/L [facility] CO2 (BldV) [Partial pressure] 50.5 mm[Hg] [facility] CO2 [Moles/Vol] 35.4 mmol/L High 24.0 - 28.0 mmol/L [facility] HCO3 (Bld) [Moles/Vol] 33.8 mmol/L High 23.0 - 27.0 mmol/L [facility] Oxygen (BldV) [Partial pressure] 36.7 mm[Hg] mm Hg [facility] pH (BldV) 7.444 [pH] High 7.330 - 7.430 [facility] Base excess Calc (BldV) [Moles/Vol] 4.7 mmol/L High -3.0 - 3.0 mmol/L [facility] CO2 (BldV) [Partial pressure] 76.4 mm[Hg] High [facility] CO2 [Moles/Vol] 35.9 mmol/L High 24.0 - 28.0 mmol/L [facility] HCO3 (Bld) [Moles/Vol] 33.5 mmol/L High 23.0 - 27.0 mmol/L [facility] Oxygen (BldV) [Partial pressure] 44.8 mm[Hg] mm Hg [facility] pH (BldV) 7.260 [pH] Low 7.330 - 7.430 [facility] Laboratory - Chemistry and C hemistry - challengeOrdered By: Tan Whitman on 01-30-2024 Base excess Calc (BldV) [Moles/Vol] 8.9 mmol/L High -3.0 - 3.0 mmol/L [facility] CO2 (BldV) [Partial pressure] 53.0 mm[Hg] [facility] CO2 [Moles/Vol] 36.1 mmol/L High 24.0 - 28.0 mmol/L [facility] HCO3 (Bld) [Moles/Vol] 34.5 mmol/L High 23.0 - 27.0 mmol/L [facility] Oxygen (BldV) [Partial pressure] 35.4 mm[Hg] mm Hg [facility] pH (BldV) 7.431 [pH] High 7.330 - 7.430 [facility] Laboratory - Drug toxicology on 01-30-2024 Vancomycin trough [Mass/Vol] 30.2 ug/mL High 15.0 - 20.0 ug/mL [facility] Laboratory - Hematology and Cell countsOrdered By: Tan Whitman on 01-30-2024 Hemoglobin (Bld) [Mass/Vol] 9.9 g/dL Screen only [facility] Laboratory - Hematology and Cell countson 01-30-2024 Hemoglobin (Bld) [Mass/Vol] 9.9 g/dL Screen only [facility] Hemoglobin (Bld) [Mass/Vol] 10.4 g/dL Screen only [facility] No Panel Informationon 01-29 Interpretation and review of laboratory results Abnormal [facility] Interpretation and review of laboratory results Abnormal [facility] Source Of Oxygen 60% Oxygen [facility] Interpretation and review of laboratory results Abnormal [facility] Source Of Oxygen 60% Oxygen [facility] No Panel InformationOrdered By: Tan Whitman on 01-30-2024 Interpretation and review of laboratory results Abnormal [facility] Source Of Oxygen 50% Oxygen [facility] PROCALCITONIN TESTon 024 PROCALCITONIN 0.02 ng/mL Normal 0.00-0.09 [facility] Comment on above: Result Comment: RAMY Champion COMMENTS:PCT <0.50 = Low risk of severe sepsis and/or septic shock.PCT >2.00 = High risk of severe sepsis and/or septic shock. Performed By: #### L [id number] ####Vp Medical: ROSALVA LOPEZ ([id number])[facility] ([id number] Procalcitonin [Mass/Vol]on 0 01-30-2024 Interpretation and review of laboratory results Normal [facility] Progress Noteon 01-30-2024 Progress Note Normal [facility] Progress Note SBT ended @ 1999, Ne w orders for SIMV. Pt currently resting on this mode Normal [facility] Progress Note Normal [facility] Progress Note Normal [facility] Progress Note Normal [facility] VANCOMYCIN, AUC TIMED DOSING on 01-30-2024 VANCOMYCIN, AUC 30.2 ug/mL High 15.0-20.0 [facility] Comment on above: Order Comment: Steven aceves draw random level at least >2 hours after the end of the last vancomycin infusion, or 30-minutes before next infusion. Performed By: #### L [id number] ####Vp Medical: ROSALVA LOPEZ ([id number])[facility])[address] [place] [address] Vancomycin trough [Mass/Vol] on 01-30-2024 Interpretation and review of laboratory results Abnormal [facility] Vital signsOrdered By: Tan Whitman on 01-30-2024 Oxygen saturation in Venous blood 68.3 % [facility] Vital signson 01-30-2024 Oxygen saturation in Venous blood 73.5 % [facility] Oxygen saturation in Venous blood 74.9 % [facility] BASIC METABOLIC PANELon 01-03 Anion gap [Moles/Vol] 6 mmol/L Normal 3-13 [facility] Comment on above: Performed By: #### L [id number], [id number], LAB69, LAB15, LAB67 ####Vp Medical: ROSALVA LOPEZ ([id number])[facility] ([facility])[address] [place] [address] Calcium [Mass/Vol] 8.9 mg/dL Normal 8.4-10.4 [facility] Comment on above: Performed By: #### L AB61, [id number], LAB69, LAB15, LAB67 ####Vp Medical: ROSALVA LOPEZ ([id number])[facility] ([facility])[address] [place] [address] Chloride [Moles/Vol] 100 mmol/L Normal 98-107 [facility] Comment on above: Performed By: #### L AB61, [id number], LAB69, LAB15, LAB67 ####Vp Medical: ROSALVA LOPEZ ([id number])[facility] ([facility])[address] [place] [address] CO2 [Moles/Vol] 36 mmol/L High 22-30 [facility] Comment on above: Performed By: #### L AB61, [id number], LAB69, LAB15, LAB67 ####Vp Medical: ROSALVA LOPEZ ([id number])[facility])[address] [place] [address] Creatinine [Mass/Vol] 0.68 mg/dL Normal 0.52-1.04 [facility] Comment on above: Performed By: #### L AB61, [id number], LAB69, LAB15, LAB67 ####Vp Medical: ROSALVA LOPEZ ([id number])[facility])[address] [place] [address] GLOMERULAR FILTRATION RATE ML/MIN/1.73 SQ M.PREDICTED >90.0 Normal >60.0 [facility] Comment on above: Result Comment: Calc ulation based on the Chronic Kidney Disease Epidemiology Collaboration (CKD-EPI) equation refit without adjustment for race Performed By: #### L AB61, [id number], LAB69, LAB15, LAB67 ####Vp Medical: ROSALVA LOPEZ ([id number])[facility])[address] [place] [address] Glucose [Mass/Vol] 85 mg/dL Normal 70-100 [facility] Comment on above: Performed By: #### L AB61, [id number], LAB69, LAB15, LAB67 ####Vp Medical: ROSALVA LOPEZ ([id number])[facility])[address] [place] [address] Potassium [Moles/Vol] 4.5 mmol/L Normal 3.5-5.1 [facility] Comment on above: Performed By: #### L AB61, [id number], LAB69, LAB15, LAB67 ####Vp Medical: ROSALVA LOPEZ ([id number])[facility])[address] [place] [address] Sodium [Moles/Vol] 143 mmol/L Normal 135-145 [facility] Comment on above: Performed By: #### L AB61, [id number], LAB69, LAB15, LAB67 ####Vp Medical: ROSALVA LOPEZ ([id number])[facility] ([facility])[address] [place] [address] Urea nitrogen [Mass/Vol] 21 mg/dL High 7-17 [facility] Comment on above: Performed By: #### L AB61, [id number], LAB69, LAB15, LAB67 ####Vp Medical: ROSALVA LOPEZ ([id number])[facility] ([facility])[address] [place] [address] BLOOD GAS ARTERIALon 024 Base excess Calc (Bld) [Moles/Vol] 7.1 mmol/L High -3.0-3.0 [facility] Comment on above: Performed By: #### L [id number] ####Vp Medical: ROSALVA LOPEZ ([id number])[facility] ([facility])[address] [place] [address] CO2 [Moles/Vol] 40.4 mmol/L High 23.0-27.0 [facility] Comment on above: Performed By: #### L AB76 ####Vp Medical: ROSALVA LOPEZ ([id number])[facility] ([facility])[address] [place] [address] HCO3 (Bld) [Moles/Vol] 37.4 mmol/L High 21.0-25.0 [facility] Comment on above: Performed By: #### L [id number] ####Vp Medical: ROSALVA LOPEZ ([id number])[facility] ([facility])[address] [place] [address] Hemoglobin (Bld) [Mass/Vol] 9.6 g/dL Normal Screen only [facility] Comment on above: Performed By: #### L AB76 ####Vp Medical: ROSALVA LOPEZ ([id number])[facility])[address] [place] [address] OXYGEN SATURATION (%) IN ARTERIAL BLOOD 28.0 % Low 95.0-100.0 [facility] Comment on above: Performed By: #### L AB76 ####Vp Medical: ROSALVA LOPEZ ([id number])[facility] ([facility])[address] [place] [address] PCO2 ARTERIAL 99.2 mm Hg Critically high >35.0-<45.0 [facility] Comment on above: Performed By: #### L AB76 ####Vp Medical: ROSALVA LOPEZ ([id number])[facility])[address] [place] [address] PH ARTERIAL 7.194 Critically low 7.350-7.450 [facility] Comment on above: Performed By: #### L AB76 ####Vp Medical: ROSALVA LOPEZ ([id number])[facility])[address] [place] [address] PO2 ARTERIAL 23.5 mm Hg Critically low 80.0-100.0 [facility] Comment on above: Performed By: #### L AB76 ####Vp Medical: ROSALVA LOPEZ ([id number])[facility])[address] [place] [address] SOURCE OF OXYGEN Bi-PAP Normal [facility] Comment on above: Result Comment: 50% Performed By: #### L AB76 ####Vp Medical: ROSALVA LOPEZ ([id number])[facility])[address] [place] [address] Base excess Calc (Bld) [Moles/Vol] 10.0 mmol/L High -3.0-3.0 [facility] Comment on above: Performed By: #### L [id number] ####Vp Medical: ROSALVA LOPEZ ([id number])[facility] ([facility])[address] [place] [address] CO2 [Moles/Vol] 41.6 mmol/L High 23.0-27.0 [facility] Comment on above: Performed By: #### L AB76 ####Vp Medical: ROSALVA LOPEZ ([id number])[facility])[address] [place] [address] HCO3 (Bld) [Moles/Vol] 39.0 mmol/L High 21.0-25.0 [facility] Comment on above: Performed By: #### L AB76 ####Vp Medical: ROSALVA LOPEZ ([id number])[facility])[address] [place] [address] Hemoglobin (Bld) [Mass/Vol] 9.6 g/dL Normal Screen only [facility] Comment on above: Performed By: #### L [id number] ####Vp Medical: ROSALVA LOPEZ ([id number])[facility])[address] [place] [address] OXYGEN SATURATION (%) IN ARTERIAL BLOOD 95.1 % Normal 95.0-100.0 [facility] Comment on above: Performed By: #### L AB76 ####Vp Medical: ROSALVA LOPEZ ([id number])[facility])[address] [place] [address] PCO2 ARTERIAL 85.5 mm Hg Critically high >35.0-<45.0 [facility] Comment on above: Performed By: #### L [id number] ####Vp Medical: ROSALVA LOPEZ ([id number])[facility])[address] [place] [address] PH ARTERIAL 7.277 Low 7.350-7.450 [facility] Comment on above: Performed By: #### L AB76 ####Vp Medical: ROSALVA LOPEZ ([id number])[facility])[address] [place] [address] PO2 ARTERIAL 83.0 mm Hg Normal 80.0-100.0 [facility] Comment on above: Performed By: #### L [id number] ####Vp Medical: ROSALVA LOPEZ ([id number])[facility])[address] [place] [address] SOURCE OF OXYGEN Other (Add Comment) Normal [facility] Comment on above: Result Comment: 4L N C Performed By: #### L AB76 ####Vp Medical: ROSALVA LOPEZ ([id number])[facility])[address] [place] [address] [place] Base excess Calc (Bld) [Moles/Vol] 11.4 mmol/L High -3.0-3.0 [facility] Comment on above: Performed By: #### L [id number] ####Vp Medical: ROSALVA LOPEZ ([id number])[facility] ([facility])[address] [place] [address] CO2 [Moles/Vol] 41.8 mmol/L High 23.0-27.0 [facility] Comment on above: Performed By: #### L [id number] ####Vp Medical: ROSALVA LOPEZ ([id number])[facility] ([facility])[address] [place] [address] HCO3 (Bld) [Moles/Vol] 39.4 mmol/L High 21.0-25.0 [facility] Comment on above: Performed By: #### L [id number] ####Vp Medical: ROSALVA LOPEZ ([id number])[facility] ([facility])[address] [place] [address] Hemoglobin (Bld) [Mass/Vol] 9.5 g/dL Normal Screen only [facility] Comment on above: Performed By: #### L [id number] ####Vp Medical: ROSALVA LOPEZ ([id number])[facility] ([facility])[address] [place] [address] OXYGEN SATURATION (%) IN ARTERIAL BLOOD 97.6 % Normal 95.0-100.0 [facility] Comment on above: Performed By: #### L [id number] ####Vp Medical: ROSALVA LOPEZ ([id number])[facility] ([facility])[address] [place] [address] PCO2 ARTERIAL 76.7 mm Hg Critically high >35.0-<45.0 [facility] Comment on above: Performed By: #### L [id number] ####Vp Medical: ROSALVA LOPEZ ([id number])[facility] ([facility])[address] [place] [address] PH ARTERIAL 7.329 Low 7.350-7.450 [facility] Comment on above: Performed By: #### L [id number] ####Vp Medical: ROSALVA LOPEZ ([id number])[facility])[address] [place] [address] PO2 ARTERIAL 98.0 mm Hg Normal 80.0-100.0 [facility] Comment on above: Performed By: #### L [id number] ####Vp Medical: ROSALVA LOPEZ ([id number])[facility])[address] [place] [address] SOURCE OF OXYGEN Bi-PAP Normal [facility] Comment on above: Result Comment: 22/12 Performed By: #### L [id number] ####Vp Medical: ROSALVA LOPEZ ([id number])[facility])[address] [place] [address] BLOOD GAS, VENOUSon 01-29-20 Base excess Calc (BldV) [Moles/Vol] 6.9 mmol/L High -3.0-3.0 [facility] Comment on above: Performed By: #### L AB79 ####Vp Medical: ROSALVA LOPEZ ([id number])[facility])[address] [place] [address] CO2 [Moles/Vol] 38.8 mmol/L High 24.0-28.0 [facility] Comment on above: Performed By: #### L [id number] ####Vp Medical: ROSALVA LOPEZ ([id number])[facility])[address] [place] [address] HCO3 (Bld) [Moles/Vol] 36.1 mmol/L High 23.0-27.0 [facility] Comment on above: Performed By: #### L AB79 ####Vp Medical: ROSALVA LOPEZ ([id number])[facility])[address] [place] [address] Hemoglobin (Bld) [Mass/Vol] 9.9 g/dL Normal Screen only [facility] Comment on above: Performed By: #### L [id number] ####Vp Medical: ROSALVA [id number])[facility] ([facility])[address] [place] [address] OXYGEN (MM HG) IN VENOUS BLOOD 47.8 mm Hg Normal [facility] Comment on above: Performed By: #### L [id number] ####Vp Medical: ROSALVA LOPEZ ([id number])[facility])[address] [place] [address] OXYGEN SATURATION (%) IN VENOUS BLOOD 77.8 % Normal [facility] Comment on above: Performed By: #### L [id number] ####Vp Medical: ROSALVA LOPEZ ([id number])[facility] ([facility])[address] [place] [address] PCO2, GÉNESIS 84.9 mm Hg High 40.0-55.0 [facility] Comment on above: Performed By: #### L AB79 ####Vp Medical: ROSALVA LOPEZ ([id number])[facility])[address] [place] [address] PH VENOUS 7.247 Low 7.330-7.430 [facility] Comment on above: Performed By: #### L AB79 ####Vp Medical: ROSALVA LOPEZ ([id number])[facility])[address] [place] [address] SOURCE OF OXYGEN 50% Oxygen Normal [facility] Comment on above: Result Comment: NIVO RDER COMMENTS:Assessment of oxygenation is best done with an arterial blood gas determination. Reference ranges for pO2, bicarbonate, and base excess are for mixed venous blood. Specimens drawn from a peripheral vein will often have higher values. Performed By: #### L [id number] ####Vp Medical: ROSALVA LOPEZ ([id number])[facility])[address] [place] [address] Basic metabolic 1998 panelon 01-29-2024 Anion gap [Moles/Vol] 6 mmol/L 3 - 13 mmol/L [facility] Calcium [Mass/Vol] 8.9 mg/dL 8.4 - 10. 4 mg/dL [facility] Chloride [Moles/Vol] 100 mmol/L 98 - 10 7 mmol/L [facility] CO2 [Moles/Vol] 36 mmol/L High 22 - 30 mmol/L [facility] Creatinine [Mass/Vol] 0.68 mg/dL 0.52 - 1.04 mg/dL [facility] GFR/1.73 sq M.predicted MDRD (S/P/Bld) [Vol rate/Area] - PINF [facility] Glucose [Mass/Vol] 85 mg/dL 70 - 100 mg/dL [facility] Interpretation and review of laboratory results Abnormal [facility] Potassium [Moles/Vol] 4.5 mmol/L 3.5 - 5.1 mmol/L [facility] Sodium [Moles/Vol] 143 mmol/L 135 - 145 mmol/L [facility] Urea nitrogen [Mass/Vol] 21 mg/dL High 7 - 17 mg/dL [facility] CBC W Auto Differential pane l (Bld)Ordered By: Seth Zavaleta on 01-29-2024 Basophils (Bld) [#/Vol] 0.0 10*3/uL 0.0 - 0.2 10*3/uL [facility] Basophils/100 WBC (Bld) 0.4 % 0.0 - 2.0 % [facility] Eosinophils (Bld) [#/Vol] 0.1 10*3/uL 0.0 - 0.5 10*3/uL [facility] Eosinophils/100 WBC (Bld) 1.1 % 0.0 - 6.0 % [facility] Erythrocyte distribution width (RBC) [Ratio] 14.3 % 11.5 - 15.0 % [facility] Hematocrit (Bld) [Volume fraction] 33.8 % Low 35.0 - 47.0 % [facility] Hemoglobin (Bld) [Mass/Vol] 9.4 g/dL Low 11.7 - 16.0 g/dL [facility] Immature granulocytes (Bld) [#/Vol] 0.0 10*3/uL NINF - 0.1 10*3/uL [facility] Immature granulocytes/100 WBC (Bld) 0.4 % 0.0 - 2.0 % [facility] Interpretation and review of laboratory results Abnormal [facility] Lymphocytes (Bld) [#/Vol] 1.5 10*3/uL 1.0 - 4.3 10*3/uL [facility] Lymphocytes/100 WBC (Bld) 20.1 % 15.0 - 45.0 % [facility] MCH (RBC) [Entitic mass] 26.1 pg 26.0 - 34.0 pg [facility] MCHC (RBC) [Mass/Vol] 27.8 % Low 30.5 - 36.0 % [facility] MCV (RBC) [Entitic vol] 93.9 fL 77.0 - 99.0 fL [facility] Monocytes (Bld) [#/Vol] 1.0 10*3/uL High 0.0 - 0.9 10*3/uL [facility] Monocytes/100 WBC (Bld) 13.8 % High 5.0 - 13.0 % [facility] Neutrophils (Bld) [#/Vol] 4.7 10*3/uL 1.8 - 7.5 10*3/uL [facility] Neutrophils/100 WBC (Bld) 64.2 % 38.0 - 82.0 % [facility] Nucleated RBC/100 WBC (Bld) [Ratio] 0.0 % [facility] Platelet mean volume (Bld) [Entitic vol] 10.2 fL 9.0 - 12.7 fL [facility] Platelets (Bld) [#/Vol] 160 10*3/uL 140 - 440 10*3/uL [facility] RBC (Bld) [#/Vol] 3.60 10*6/uL Low 3.80 - 5.2 0 10*6/uL [facility] WBC (Bld) [#/Vol] 7.3 10*3/uL 3.6 - 10.7 10*3/uL [facility] CBC WITH AUTO DIFFERENTIALon 01-29-2024 Basophils (Bld) [#/Vol] 0.0 10*3/uL Normal 0.0-0.2 [facility] Comment on above: Performed By: #### L [id number] ####Vp Medical: ROSALVA LOPEZ ([id number])[facility] ([address] Basophils/100 WBC (Bld) 0.4 % Normal 0.0-2.0 [facility] Comment on above: Performed By: #### L [id number] ####Vp Medical: ROSALVA LOPEZ ([id number])[facility])[address] [place] [address] Eosinophils (Bld) [#/Vol] 0.1 10*3/uL Normal 0.0-0.5 [facility] Comment on above: Performed By: #### L [id number] ####[facility]: ROSALVA LOPEZ ([id number])[facility])[address] [place] [address] Eosinophils/100 WBC (Bld) 1.1 % Normal 0.0-6.0 [facility] Comment on above: Performed By: #### L [id number] ####[facility]: ROSALVA LOPEZ ([id number])[address] Erythrocyte distribution width (RBC) [Ratio] 14.3 % Normal 11.5-15.0 [facility] Comment on above: Performed By: #### L [id number] ####[facility]: ROSALVA LOPEZ ([id number])[facility])[address] [place] [address] Hematocrit (Bld) [Volume fraction] 33.8 % Low 35.0-47.0 [facility] Comment on above: Performed By: #### L [id number] ####[facility]: ROSALVA LOPEZ ([id number])[address] Hemoglobin (Bld) [Mass/Vol] 9.4 g/dL Low 11.7-16.0 [facility] Comment on above: Performed By: #### L [id number] ####[facility]: ROSALVA LOPEZ ([id number])[facility])[address] [place] [address] IMMATURE GRANS % 0.4 % Normal 0.0-2.0 [facility] Comment on above: Performed By: #### L [id number] ####[employer]: ROSALVA LOPEZ ([id number])[address] IMMATURE GRANS ABSOLUTE 0.0 10*3/uL Normal <0.1 [facility] Comment on above: Performed By: #### L [id number] ####[facility] [employer]: ROSALVA LOPEZ ([id number])[facility])[address] [place] [address] Lymphocytes (Bld) [#/Vol] 1.5 10*3/uL Normal 1.0-4.3 [facility] Comment on above: Performed By: #### L [id number] ####[facility]: ROSALVA LOPEZ ([id number])[facility])[address] [place] [address] Lymphocytes/100 WBC (Bld) 20.1 % Normal 15.0-45.0 [facility] Comment on above: Performed By: #### L [id number] ####[facility]: ROSALVA LOPEZ ([id number])[facility])[address] [place] [address] MCH (RBC) [Entitic mass] 26.1 pg Normal 26.0-34.0 [facility] Comment on above: Performed By: #### L [id number] ####[facility]: ROSALVA LOPEZ ([id number])[facility])[address] [place] [address] MCHC 27.8 % Low 30.5-36.0 [facility] Comment on above: Performed By: #### L [id number] ####[facility]: ROSALVA LOPEZ ([id number])[facility])[address] [place] [address] MCV (RBC) [Entitic vol] 93.9 fL Normal 77.0-99.0 [facility] Comment on above: Performed By: #### L [id number] ####[facility]: ROSALVA LOPEZ ([id number])[facility])[address] [place] [address] Monocytes (Bld) [#/Vol] 1.0 10*3/uL High 0.0-0.9 [facility] Comment on above: Performed By: #### L [id number] ####[facility]: ROSALVA LOPEZ ([id number])[facility] ([facility])[address] [place] [address] Monocytes/100 WBC (Bld) 13.8 % High 5.0-13.0 [facility] Comment on above: Performed By: #### L [id number] ####[facility]: ROSALVA LOPEZ ([id number])[facility] ([facility])[address] [place] [address] NEUTROPHILS ABSOLUTE 4.7 10*3/uL Normal 1.8-7.5 [facility] Comment on above: Performed By: #### L [id number] ####[facility] Medical: ROSALVA LOPEZ ([id number])[facility] ([facility])[address] [place] [address] Neutrophils/100 WBC (Bld) 64.2 % Normal 38.0-82.0 [facility] Comment on above: Performed By: #### L [id number] ####[facility]: ROSALVA LOPEZ ([id number])[facility] ([facility])[address] [place] [address] NRBC 0.0 /100 WBCs Normal 0.0-2.0 [facility] Comment on above: Performed By: #### L [id number] ####[facility] Medical: ROSALVA LOPEZ ([id number])[facility] ([facility])[address] [place] [address] Platelet mean volume (Bld) [Entitic vol] 10.2 fL Normal 9.0-12.7 [facility] Comment on above: Performed By: #### L [id number] ####[facility]: ROSALVA LOPEZ ([id number])[facility] ([facility])[address] [place] [address] [place] Platelets (Bld) [#/Vol] 160 10*3/uL Normal 140-440 [facility] Comment on above: Performed By: #### L [id number] ####[facility]p Medical: ROSALVA LOPEZ ([id number])[facility])[address] [place] [address] RBC (Bld) [#/Vol] 3.60 10*6/uL Low 3.80-5.20 [facility] Comment on above: Performed By: #### L [id number] ####[facility] Medical: ROSALVA LOPEZ ([id number])[facility])[address] [place] [address] WBC (Bld) [#/Vol] 7.3 10*3/uL Normal 3.6-10.7 [facility] Comment on above: Performed By: #### L [id number] ####[facility] Medical: ROSALVA LOPEZ ([id number])[facility])[address] [place] [address] CORTISOLon 01-29-2024 CORTISOL 20.3 ug/dL Normal [facility] Comment on above: Result Comment: RAMY R COMMENTS:Before 10am 4.5-22.7 ug/dLAfter 5pm 1.7-14.1 ug/dL Performed By: #### L [id number], [id number], LAB69, LAB15, LAB67 ####[facility] Medical: ROSALVA LOPEZ ([id number])[facility])[address] [place] [address] Consulton 01-29-2024 Consult Normal [facility] Consult Normal [facility] FOLATEon 01-29-2024 FOLATE RESULT >20.0 Normal >=2.9 [facility] Comment on above: Performed By: #### L AB61, [id number], LAB69, LAB15, LAB67 ####[facility] Medical: ROSALVA LOPEZ ([id number])[facility])[address] [place] [address] IDNon 01-29-2024 IDN Normal [facility] Laboratory - Chemistry and C hemistry - challengeon 01-29-2024 Base excess Calc (Bld) [Moles/Vol] 7.1 mmol/L High -3.0 - 3.0 mmol/L [facility] CO2 (Bld) [Partial pressure] 99.2 mm[Hg] Critically high - PINF [facility] CO2 [Moles/Vol] 40.4 mmol/L High 23.0 - 27.0 mmol/L [facility] HCO3 (Bld) [Moles/Vol] 37.4 mmol/L High 21.0 - 25.0 mmol/L [facility] Oxygen (Bld) [Partial pressure] 23.5 mm[Hg] Critically low [facility] pH (Bld) 7.194 [pH] Critically low 7.350 - 7.450 [facility] Cortisol [Mass/Vol] 20.3 ug/dL [facility] Cobalamin (Vitamin B12) [Mass/Vol] 416 pg/mL 239 - 931 pg/mL [facility] Folate [Mass/Vol] ng/mL 2.9 - PINF ng/mL [facility] TSH Qn 1.148 m[IU]/L [facility] Procalcitonin [Mass/Vol] 0.02 ng/mL 0.00 - 0.09 ng/mL [facility] Laboratory - Chemistry and C hemistry - challengeOrdered By: Faiza Chanel on 01-29-2024 Base excess Calc (BldV) [Moles/Vol] 6.9 mmol/L High -3.0 - 3.0 mmol/L [facility] CO2 (BldV) [Partial pressure] 84.9 mm[Hg] High [facility] CO2 [Moles/Vol] 38.8 mmol/L High 24.0 - 28.0 mmol/L [facility] HCO3 (Bld) [Moles/Vol] 36.1 mmol/L High 23.0 - 27.0 mmol/L [facility] Oxygen (BldV) [Partial pressure] 47.8 mm[Hg] mm Hg [facility] pH (BldV) 7.247 [pH] Low 7.330 - 7.430 [facility] Laboratory - Chemistry and C hemistry - challengeOrdered By: Nancy Moran on 01-29-2024 Base excess Calc (Bld) [Moles/Vol] 10.0 mmol/L High -3.0 - 3.0 mmol/L [facility] CO2 (Bld) [Partial pressure] 85.5 mm[Hg] Critically high - PINF [facility] CO2 [Moles/Vol] 41.6 mmol/L High 23.0 - 27.0 mmol/L [facility] HCO3 (Bld) [Moles/Vol] 39.0 mmol/L High 21.0 - 25.0 mmol/L [facility] Oxygen (Bld) [Partial pressure] 83.0 mm[Hg] [facility] pH (Bld) 7.277 [pH] Low 7.350 - 7.450 [facility] Laboratory - Chemistry and C hemistry - challengeOrdered By: Eileen Abad on 01-29-2024 Base excess Calc (Bld) [Moles/Vol] 11.4 mmol/L High -3.0 - 3.0 mmol/L [facility] CO2 (Bld) [Partial pressure] 76.7 mm[Hg] Critically high - PINF [facility] CO2 [Moles/Vol] 41.8 mmol/L High 23.0 - 27.0 mmol/L [facility] HCO3 (Bld) [Moles/Vol] 39.4 mmol/L High 21.0 - 25.0 mmol/L [facility] Oxygen (Bld) [Partial pressure] 98.0 mm[Hg] [facility] pH (Bld) 7.329 [pH] Low 7.350 - 7.450 [facility] Laboratory - Hematology and Cell countson 01-29-2024 Hemoglobin (Bld) [Mass/Vol] 9.6 g/dL Screen only [facility] Laboratory - Hematology and Cell countsOrdered By: Faiza Chanel on 01-29-2024 Hemoglobin (Bld) [Mass/Vol] 9.9 g/dL Screen only [facility] Laboratory - Hematology and Cell countsOrdered By: Nancy Moran on 01-29-2024 Hemoglobin (Bld) [Mass/Vol] 9.6 g/dL Screen only [facility] Laboratory - Hematology and Cell countsOrdered By: Eileen Abad on 01-29-2024 Hemoglobin (Bld) [Mass/Vol] 9.5 g/dL Screen only [facility] No Panel Informationon 01-28 Interpretation and review of laboratory results Abnormal [facility] Source Of Oxygen Bi-PAP [facility] Interpretation and review of laboratory results Normal [facility] No Panel InformationOrdered By: Faiza Chanel on 01-29-2024 Interpretation and review of laboratory results Abnormal [facility] Source Of Oxygen 50% Oxygen [facility] No Panel InformationOrdered By: Nancy Moran on 01-29-2024 Interpretation and review of laboratory results Abnormal [facility] Source Of Oxygen Other (Add Comment) [facility] No Panel InformationOrdered By: Eileen Abad on 01-29-2024 Interpretation and review of laboratory results Abnormal [facility] Source Of Oxygen Bi-PAP [facility] Procalcitonin [Mass/Vol]on 0 01-29-2024 Interpretation and review of laboratory results Normal [facility] Progress Noteon 01-29-2024 Progress Note RT unsuccessful at 2 nd ABG d/t pt marcus RN and Dr cody Normal [facility] Progress Note Normal [facility] THYROID STIMULATING HORMONEo n 01-29-2024 THYROID STIMULATING HORMONE 1.148 uIU/mL Normal 0.465-4.680 [facility] Comment on above: Performed By: #### L AB61, [id number], LAB69, LAB15, LAB67 ####[employer]: ROSALVA LOPEZ ([id number])[facility] ([facility])[address] [place] [address] [place] TSH Qnon 01-29-2024 Interpretation and review of laboratory results Normal [facility] VITAMIN B12on 01-29-2024 Cobalamin (Vitamin B12) [Mass/Vol] 416 pg/mL Normal 239-931 [facility] Comment on above: Performed By: #### L AB61, [id number], LAB69, LAB15, LAB67 ####[facility] [facility]: ROSALVA LOPEZ ([id number])[facility] ([facility])[address] [place] [address] VITAMIN D DEFICIENCY SCREENI NG (VIT D 25)on 01-29-2024 VIT D 25-OH, TOTAL 32 ng/mL Normal 30-100 [facility] Comment on above: Result Comment: RAMY Champion COMMENTS:Therapy is based on measurement of Total 25-OHD with the following classification levels:Less than 20 ng/mL: Indicative of Vit D mdnonbraoc90-87 ng/mL: Suggests Vit D insufficiencyOptimal: Greater than or equal to 30 ng/mLTest performed by Prism Digital Competitive Immunoassay, measuring Total Vitamin D, not individual fractions. Performed By: #### L [id number] ####[facility]: NIMCO NORTON ([id number])[facility] ([facility])[address] [place] [address] Vital signsOrdered By: Danielle Chanel on 01-29-2024 Oxygen saturation in Venous blood 77.8 % [facility] XR CHEST 1 VIEWon 01-29-2024 XR CHEST 1 VIEW Normal [facility] XR Chest Single viewon 01-28 [facility] Radiology Study observation (narrative) [facility] XR Chest Single viewOrdered By: Jeet Peerz on 01-29-2024 [facility] [employer] Work Phone: BLOOD CULTUREon 01-28-2024 Bacteria identified Cx Nom (Bld) Normal [facility] Comment on above: Performed By: #### L [id number] ####Vp Medical: ROSALVA LOPEZ ([id number])[facility] ([facility])[address] [place] [address] Bacteria identified Cx Nom (Bld) Normal [facility] Comment on above: Performed By: #### L [id number] ####Vp Medical: ROSALVA LOPEZ ([id number])[facility])[address] [place] [address] BLOOD GAS, VENOUSon 01-28-20 24 Base excess Calc (BldV) [Moles/Vol] 10.8 mmol/L High -3.0-3.0 [facility] Comment on above: Performed By: #### L AB79 ####[facility] Medical: ROSALVA LOPEZ ([id number])[facility] ([facility])[address] [place] [address] CO2 [Moles/Vol] 43.0 mmol/L High 24.0-28.0 [facility] Comment on above: Performed By: #### L AB79 ####Vp Medical: ROSALVA LOPEZ ([id number])[facility])[address] [place] [address] HCO3 (Bld) [Moles/Vol] 40.3 mmol/L High 23.0-27.0 [facility] Comment on above: Performed By: #### L AB79 ####Vp Medical: ROSALVA LOPEZ ([id number])[facility])[address] [place] [address] Hemoglobin (Bld) [Mass/Vol] 11.0 g/dL Normal Screen only [facility] Comment on above: Performed By: #### L AB79 ####Vp Medical: ROSALVA LOPEZ ([id number])[facility])[address] [place] [address] OXYGEN (MM HG) IN VENOUS BLOOD 43.8 mm Hg Normal [facility] Comment on above: Performed By: #### L AB79 ####Vp Medical: ROSALVA LOPEZ ([id number])[facility])[address] [place] [address] OXYGEN SATURATION (%) IN VENOUS BLOOD 74.1 % Normal [facility] Comment on above: Performed By: #### L AB79 ####Vp Medical: ROSALVA LOPEZ ([id number])[facility])[address] [place] [address] PCO2, GÉNESIS 87.0 mm Hg High 40.0-55.0 [facility] Comment on above: Performed By: #### L AB79 ####Vp Medical: ROSALVA LOPEZ ([id number])[address] PH VENOUS 7.284 Low 7.330-7.430 [facility] Comment on above: Performed By: #### L AB79 ####[employer]p Medical: ROSALVA LOPEZ ([id number])[address] SOURCE OF OXYGEN No data Normal [facility] Comment on above: Result Comment: RAMY Champion COMMENTS:Assessment of oxygenation is best done with an arterial blood gas determination. Reference ranges for pO2, bicarbonate, and base excess are for mixed venous blood. Specimens drawn from a peripheral vein will often have higher values. Performed By: #### L AB79 ####[facility]: ROSALVA LOPEZ ([id number])[facility] ([address] CBC W Auto Differential pane l (Bld)Ordered By: Lacy Nicole on 01-28-2024 Basophils (Bld) [#/Vol] 0.1 10*3/uL 0.0 - 0.2 10*3/uL [facility] Basophils/100 WBC (Bld) 0.5 % 0.0 - 2.0 % [facility] Eosinophils (Bld) [#/Vol] 0.0 10*3/uL 0.0 - 0.5 10*3/uL [facility] Eosinophils/100 WBC (Bld) 0.4 % 0.0 - 6.0 % [facility] Erythrocyte distribution width (RBC) [Ratio] 14.3 % 11.5 - 15.0 % [facility] Hematocrit (Bld) [Volume fraction] 36.5 % 35.0 - 47.0 % [facility] Hemoglobin (Bld) [Mass/Vol] 10.8 g/dL Low 11.7 - 16.0 g/dL [facility] [employer] Immature granulocytes (Bld) [#/Vol] 0.1 10*3/uL High NINF - 0.1 10*3/uL [facility] [employer] Immature granulocytes/100 WBC (Bld) 0.4 % 0.0 - 2.0 % [facility] Interpretation and review of laboratory results Abnormal [facility] IPF 4 [facility] [employer] Lymphocytes (Bld) [#/Vol] 1.1 10*3/uL 1.0 - 4.3 10*3/uL [facility] [employer] Lymphocytes/100 WBC (Bld) 9.9 % Low 15.0 - 45.0 % [facility] MCH (RBC) [Entitic mass] 27.4 pg 26.0 - 34.0 pg [facility] [employer] MCHC (RBC) [Mass/Vol] 29.6 % Low 30.5 - 36.0 % [facility] [employer] MCV (RBC) [Entitic vol] 92.6 fL 77.0 - 99.0 fL [facility] [employer] Monocytes (Bld) [#/Vol] 1.1 10*3/uL High 0.0 - 0.9 10*3/uL [facility] Monocytes/100 WBC (Bld) 9.7 % 5.0 - 13.0 % [facility] Neutrophils (Bld) [#/Vol] 8.8 10*3/uL High 1.8 - 7.5 10*3/uL [facility] Neutrophils/100 WBC (Bld) 79.1 % 38.0 - 82.0 % [facility] Nucleated RBC/100 WBC (Bld) [Ratio] 0.0 % [facility] Platelet mean volume (Bld) [Entitic vol] 11.6 fL 9.0 - 12.7 fL [facility] Platelets (Bld) [#/Vol] 195 10*3/uL 140 - 440 10*3/uL [facility] RBC (Bld) [#/Vol] 3.94 10*6/uL 3.80 - 5.2 0 10*6/uL [facility] WBC (Bld) [#/Vol] 11.1 10*3/uL High 3.6 - 10.7 10*3/uL [facility] CBC WITH AUTO DIFFERENTIALon 01-28-2024 Basophils (Bld) [#/Vol] 0.1 10*3/uL Normal 0.0-0.2 [facility] Comment on above: Performed By: #### L [id number] ####[facility] Medical: ROSALVA LOPEZ ([id number])[facility] ([facility])[address] [place] [address] Basophils/100 WBC (Bld) 0.5 % Normal 0.0-2.0 [facility] Comment on above: Performed By: #### L [id number] ####Vp Medical: ROSALVA LOPEZ ([id number])[facility] ([facility])[address] [place] [address] [place] Eosinophils (Bld) [#/Vol] 0.0 10*3/uL Normal 0.0-0.5 [facility] Comment on above: Performed By: #### L [id number] ####Vp Medical: ROSALVA LOPEZ ([id number])[facility] ([facility])[address] [place] [address] [place] Eosinophils/100 WBC (Bld) 0.4 % Normal 0.0-6.0 [facility] Comment on above: Performed By: #### L [id number] ####Vp Medical: ROSALVA LOPEZ ([id number])[facility])[address] [place] [address] Erythrocyte distribution width (RBC) [Ratio] 14.3 % Normal 11.5-15.0 [facility] Comment on above: Performed By: #### L [id number] ####Vp Medical: ROSALVA LOPEZ ([id number])[facility])[address] [place] [address] Hematocrit (Bld) [Volume fraction] 36.5 % Normal 35.0-47.0 [facility] Comment on above: Performed By: #### L [id number] ####[employer]: ROSALVA LOPEZ ([id number])[address] Hemoglobin (Bld) [Mass/Vol] 10.8 g/dL Low 11.7-16.0 [facility] Comment on above: Performed By: #### L [id number] ####[employer]: ROSALVA LOPEZ ([id number])[address] IMMATURE GRANS % 0.4 % Normal 0.0-2.0 [facility] Comment on above: Performed By: #### L [id number] ####[employer]: ROSALVA LOPEZ ([id number])[address] IMMATURE GRANS ABSOLUTE 0.1 10*3/uL High <0.1 [facility] Comment on above: Performed By: #### L [id number] ####Vp Medical: ROSALVA LOPEZ ([id number])[place] [address] [place] IPF 4 Normal [facility] Comment on above: Performed By: #### L [id number] ####[employer]: ROSALVA LOPEZ ([id number])[facility])[address] [place] [address] Lymphocytes (Bld) [#/Vol] 1.1 10*3/uL Normal 1.0-4.3 [facility] Comment on above: Performed By: #### L [id number] ####[employer]: ROSALVA LOEPZ ([id number])[facility])[address] [place] [address] Lymphocytes/100 WBC (Bld) 9.9 % Low 15.0-45.0 [facility] Comment on above: Performed By: #### L [id number] ####Vp Medical: ROSALVA LOPEZ ([id number])[facility])[address] [place] [address] MCH (RBC) [Entitic mass] 27.4 pg Normal 26.0-34.0 [facility] Comment on above: Performed By: #### L [id number] ####Vp Medical: ROSALVA LOPEZ ([id number])[facility])[address] [place] [address] MCHC 29.6 % Low 30.5-36.0 [facility] Comment on above: Performed By: #### L [id number] ####Vp Medical: ROSALVA LOPEZ ([id number])[facility])[address] [place] [address] MCV (RBC) [Entitic vol] 92.6 fL Normal 77.0-99.0 [facility] Comment on above: Performed By: #### L [id number] ####Vp Medical: ROSALVA LOPEZ ([id number])[facility])[address] [place] [address] Monocytes (Bld) [#/Vol] 1.1 10*3/uL High 0.0-0.9 [facility] Comment on above: Performed By: #### L [id number] ####Vp Medical: ROSALVA LOPEZ ([id number])[facility])[address] [place] [address] Monocytes/100 WBC (Bld) 9.7 % Normal 5.0-13.0 [facility] Comment on above: Performed By: #### L [id number] ####Vp Medical: ROSALVA LOPEZ ([id number])[facility] ([facility])[address] [place] [address] NEUTROPHILS ABSOLUTE 8.8 10*3/uL High 1.8-7.5 [facility] Comment on above: Performed By: #### L [id number] ####[employer] Medical: ROSALVA LOPEZ ([id number])[facility] ([facility])[address] [place] [address] Neutrophils/100 WBC (Bld) 79.1 % Normal 38.0-82.0 [facility] Comment on above: Performed By: #### L [id number] ####[employer]: ROSALVA LOPEZ ([id number])[facility] ([facility])[address] [place] [address] NRBC 0.0 /100 WBCs Normal 0.0-2.0 [facility] Comment on above: Performed By: #### L [id number] ####[employer]: ROSALVA LOPEZ ([id number])[facility] ([facility])[address] [place] [address] Platelet mean volume (Bld) [Entitic vol] 11.6 fL Normal 9.0-12.7 [facility] Comment on above: Performed By: #### L [id number] ####[employer]: ROSALVA LOPEZ ([id number])[facility] ([facility])[address] [place] [address] Platelets (Bld) [#/Vol] 195 10*3/uL Normal 140-440 [facility] Comment on above: Performed By: #### L [id number] ####[employer]: ROSALVA LOPEZ ([id number])[facility] ([facility])[address] [place] [address] RBC (Bld) [#/Vol] 3.94 10*6/uL Normal 3.80-5.20 [facility] Comment on above: Performed By: #### L [id number] ####[employer] Medical: ROSALVA LOPEZ ([id number])[facility])[address] [place] [address] WBC (Bld) [#/Vol] 11.1 10*3/uL High 3.6-10.7 [facility] Comment on above: Performed By: #### L [id number] ####[employer]: ROSALVA LOPEZ ([id number])[facility])[address] [place] [address] COMPREHENSIVE METABOLIC PANE Dagoberto 01-28-2024 Albumin [Mass/Vol] 3.6 g/dL Normal 3.5-5.0 [facility] Comment on above: Performed By: #### L [id number] ####[employer]: ROSALVA LOPEZ ([id number])[facility])[address] [place] [address] ALP [Catalytic activity/Vol] 76 U/L Normal 38-126 [facility] Comment on above: Performed By: #### L [id number] ####[employer]: ROSALVA LOPEZ ([id number])[facility])[address] [place] [address] ALT [Catalytic activity/Vol] 11 U/L Normal 0-34 [facility] Comment on above: Performed By: #### L [id number] ####[facility]: ROSALVA LOPEZ ([id number])[facility])[address] [place] [address] Anion gap [Moles/Vol] 4 mmol/L Normal 3-13 [facility] Comment on above: Performed By: #### L [id number] ####[facility]: ROSALVA LOPEZ ([id number])[facility])[address] [place] [address] AST [Catalytic activity/Vol] 22 U/L Normal 15-46 [facility] Comment on above: Performed By: #### L [id number] ####[facility]: ROSALVA LOPEZ ([id number])[facility])[address] [place] [address] Bilirubin [Mass/Vol] 0.5 mg/dL Normal 0.2-1.3 [facility] Comment on above: Performed By: #### L [id number] ####[facility]: ROSALVA LOPEZ ([id number])[facility])[address] [place] [address] Calcium [Mass/Vol] 8.4 mg/dL Normal 8.4-10.4 [facility] Comment on above: Performed By: #### L [id number] ####[facility]: ROSALVA LOPEZ ([id number])[facility])[address] [place] [address] Chloride [Moles/Vol] 99 mmol/L Normal 98-107 [facility] [facility] Comment on above: Performed By: #### L [id number] ####Vp Medical: ROSALVA LOPEZ ([id number])[facility] ([facility])[address] [place] [address] CO2 [Moles/Vol] 38 mmol/L High 22-30 [facility] Comment on above: Performed By: #### L [id number] ####Vp Medical: ROSALVA LOPEZ ([id number])[facility])[address] [place] [address] Creatinine [Mass/Vol] 0.68 mg/dL Normal 0.52-1.04 [facility] Comment on above: Performed By: #### L [id number] ####Vp Medical: ROSALVA LOPEZ ([id number])[facility])[address] [place] [address] GLOMERULAR FILTRATION RATE ML/MIN/1.73 SQ M.PREDICTED >90.0 Normal >60.0 [facility] Comment on above: Result Comment: Calc ulation based on the Chronic Kidney Disease Epidemiology Collaboration (CKD-EPI) equation refit without adjustment for race Performed By: #### L [id number] ####Vp Medical: ROSALVA LOPEZ ([id number])[facility])[address] [place] [address] [place] Glucose [Mass/Vol] 98 mg/dL Normal 70-100 [facility] Comment on above: Performed By: #### L AB17 ####Vp Medical: ROSALVA LOPEZ ([id number])[facility] ([facility])[address] [place] [address] Potassium [Moles/Vol] 4.4 mmol/L Normal 3.5-5.1 [facility] Comment on above: Performed By: #### L [id number] ####Vp Medical: ROSALVA LOPEZ ([id number])[facility] ([facility])[address] [place] [address] Protein [Mass/Vol] 6.7 g/dL Normal 6.3-8.2 [facility] Comment on above: Performed By: #### L [id number] ####Vp Medical: ROSALVA LOPEZ ([id number])[facility] ([facility])[address] [place] [address] Sodium [Moles/Vol] 140 mmol/L Normal 135-145 [facility] Comment on above: Performed By: #### L [id number] ####Vp Medical: ROSALVA LOPEZ ([id number])[facility] ([facility])[address] [place] [address] Urea nitrogen [Mass/Vol] 19 mg/dL High 7-17 [facility] Comment on above: Performed By: #### L [id number] ####Vp Medical: ROSALVA LOPEZ ([id number])[facility] ([facility])[address] [place] [address] Comprehensive metabolic 1998 panelon 01-28-2024 Albumin [Mass/Vol] 3.6 g/dL 3.5 - 5.0 g/dL [facility] ALP [Catalytic activity/Vol] 76 U/L 38 - 126 U/L [facility] ALT [Catalytic activity/Vol] 11 U/L 0 - 34 U/L [facility] Anion gap [Moles/Vol] 4 mmol/L 3 - 13 mmol/L [facility] AST [Catalytic activity/Vol] 22 U/L 15 - 46 U/L [facility] Bilirubin [Mass/Vol] 0.5 mg/dL 0.2 - 1 .3 mg/dL [facility] Calcium [Mass/Vol] 8.4 mg/dL 8.4 - 10. 4 mg/dL [facility] Chloride [Moles/Vol] 99 mmol/L 98 - 10 7 mmol/L [facility] CO2 [Moles/Vol] 38 mmol/L High 22 - 30 mmol/L [facility] Creatinine [Mass/Vol] 0.68 mg/dL 0.52 - 1.04 mg/dL [facility] GFR/1.73 sq M.predicted MDRD (S/P/Bld) [Vol rate/Area] - PINF [facility] Glucose [Mass/Vol] 98 mg/dL 70 - 100 mg/dL [facility] Interpretation and review of laboratory results Abnormal [facility] Potassium [Moles/Vol] 4.4 mmol/L 3.5 - 5.1 mmol/L [facility] Protein [Mass/Vol] 6.7 g/dL 6.3 - 8.2 g/dL [facility] Sodium [Moles/Vol] 140 mmol/L 135 - 145 mmol/L [facility] Urea nitrogen [Mass/Vol] 19 mg/dL High 7 - 17 mg/dL [facility] Consulton 01-28-2024 Consult Normal [facility] ED Provider Noteon ED Provider Note Normal [facility] Laboratory - Chemistry and C hemistry - challengeon 01-28-2024 Magnesium [Mass/Vol] 1.7 mg/dL 1.6 - 2 .3 mg/dL [facility] Laboratory - Chemistry and C hemistry - challengeOrdered By: Adriane Enciso on 01-28-2024 Base excess Calc (BldV) [Moles/Vol] 10.8 mmol/L High -3.0 - 3.0 mmol/L [facility] CO2 (BldV) [Partial pressure] 87.0 mm[Hg] High [facility] CO2 [Moles/Vol] 43.0 mmol/L High 24.0 - 28.0 mmol/L [facility] HCO3 (Bld) [Moles/Vol] 40.3 mmol/L High 23.0 - 27.0 mmol/L [facility] Oxygen (BldV) [Partial pressure] 43.8 mm[Hg] mm Hg [facility] pH (BldV) 7.284 [pH] Low 7.330 - 7.430 [facility] Laboratory - Drug toxicology on 01-28-2024 Phenytoin [Mass/Vol] ug/mL Low 10.0 - 20.0 ug/mL [facility] Laboratory - Hematology and Cell countsOrdered By: Adriane Enciso on 01-28-2024 Hemoglobin (Bld) [Mass/Vol] 11.0 g/dL Screen only [facility] MAGNESIUMon 01-28-2024 Magnesium [Mass/Vol] 1.7 mg/dL Normal 1.6-2.3 [facility] Comment on above: Result Comment: ORDE R COMMENTS:Moderately Hemolyzed. Interpret Mg with caution. Performed By: #### L [id number], LAB31 ####Vp Medical: ROSALVA LOPEZ ([id number])[address] Magnesium [Mass/Vol]on 01-27 Interpretation and review of laboratory results Normal [facility] No Panel Informationon 01-27 Interpretation and review of laboratory results Abnormal [facility] No Panel InformationOrdered By: Adriane Enciso on 01-28-2024 Interpretation and review of laboratory results Abnormal [facility] Source Of Oxygen No data [facility] PHENYTOIN TOTALon 01-28-2024 PHENYTOIN, TOTAL <3.0 Low 10.0-20.0 [facility] Comment on above: Result Comment: RAMY R COMMENTS:Moderately Hemolyzed. Interpret PHENYTOIN with caution. Performed By: #### L [id number], LAB31 ####Vp Medical: ROSALVA LOPEZ ([id number])[facility])[address] [place] [address] PNEUMONIA PCR PANELon 2023 PNEUMONIA PCR PANEL Normal [facility] Comment on above: Performed By: #### L [id number] ####Vp Medical: ROSALVA LOPEZ ([id number])[facility])[address] [place] [address] PROCALCITONIN TESTon 024 PROCALCITONIN 0.02 ng/mL Normal 0.00-0.09 [facility] Comment on above: Result Comment: ORDE R COMMENTS:PCT <0.50 = Low risk of severe sepsis and/or septic shock.PCT >2.00 = High risk of severe sepsis and/or septic shock. Performed By: #### L [id number] ####Vp Medical: ROSALVA LOPEZ ([id number])[facility] ([facility])[address] [place] [address] RESPIRATORY CULTURE AND STAI Non 01-28-2024 RESPIRATORY CULTURE AND STAIN Normal [facility] Comment on above: Performed By: #### L [id number] ####Vp Medical: ROSALVA LOPEZ ([id number])[facility] ([facility])[address] [place] [address] RESPIRATORY PATHOGENS PANEL BY PCRon 01-28-2024 RESPIRATORY PATHOGENS PANEL BY PCR Normal [facility] Comment on above: Performed By: #### L [id number] ####Vp Medical: ROSALVA LOPEZ ([id number])[facility] ([facility])[address] [place] [address] Respiratory pathogens DNA an d RNA panel MERISSA+non-probe (Lower resp)Ordered By: Judith Amador on 01-28-2024 Acinetobacter baumannii complex Not detected Not Detected [facility] Adenovirus Not detected Not Detected [facility] Chlamydia pneumoniae Not detected Not Detected [facility] Enterobacter cloacae complex Not detected Not Detected [facility] Escherichia coli Not detected Not Detected [facility] FLUAV RNA MERISSA+non-probe Ql (Lower resp) Not detected Not Detected [facility] FLUBV RNA MERISSA+non-probe Ql (Lower resp) Not detected Not Detected [facility] Haemophilus influenzae Not detected Not Detecte d [facility] Human Metapneumovirus Not detected Not Detected [facility] Human Rhinovirus/Enterovirus Not detected Not Detected [facility] Interpretation and review of laboratory results Abnormal [facility] Klebsiella (Enterobacter) aerogenes Not detected Not Detected [facility] Klebsiella oxytoca Not detected Not Detected [facility] Klebsiella pneumoniae Not detected Not Detected [facility] Legionella pneumophila Not detected Not Detecte d [facility] mecA Detected Abnormal Not Detected [facility] Moraxella catarrhalis Detected Abnormal Not Detected [facility] Mycoplasma pneumoniae Not detected Not Detected [facility] Parainfluenza virus Not detected Not Detected [facility] Proteus spp Not detected Not Detected [facility] Pseudomonas aeruginosa Detected Abnormal Not Detected [facility] RSV RNA MERISSA+probe Ql (Resp) Not detected Not Detected [facility] S. agalactiae Org specific cx Ql (Vag fld) Not detected Not Detected [facility] SARS-CoV-2 (COVID-19) RNA MERISSA+non-probe Ql (Nph) Not detected Not Detected [facility] Serratia marcescens Not detected Not Detected [facility] Staphylococcus aureus Detected Abnormal Not Detected [facility] Streptococcus pneumoniae Not detected Not Detected [facility] Streptococcus pyogenes Not detected Not Detecte d [facility] Respiratory pathogens DNA an d RNA panel MERISSA+non-probe (Nph)on 01-28-2024 Adenovirus Not detected Not Detected [facility] B. pertussis DNA MERISSA+probe Ql (Unsp spec) Not detected Not Detected [facility] Bordetella parapertussis Not detected Not Detected [facility] Chlamydia pneumoniae Not detected Not Detected [facility] Coronavirus 229E Not detected Not Detected [facility] Coronavirus HKU1 Not detected Not Detected [facility] Coronavirus NL63 Not detected Not Detected [facility] Coronavirus OC43 Not detected Not Detected [facility] FLUAV RNA MERISSA+non-probe Ql (Nph) Not detected Not Detected [facility] FLUBV RNA MERISSA+non-probe Ql (Nph) Not detected Not Detected [facility] Human Metapneumovirus Not detected Not Detected [facility] Human Rhinovirus/Enterovirus Not detected Not Detected [facility] Interpretation and review of laboratory results Normal [facility] Mycoplasma pneumoniae Not detected Not Detected [facility] Parainfluenza 1 Not detected Not Detected [facility] Parainfluenza 2 Not detected Not Detected [facility] Parainfluenza 3 Not detected Not Detected [facility] Parainfluenza 4 Not detected Not Detected [facility] Respiratory Syncytial Virus Not detected Not Detected [facility] SARS-CoV-2 (COVID-19) RNA MERISSA+non-probe Ql (Nph) Not detected Not Detected [facility] Vital signsOrdered By: Adriane Enciso on 01-28-2024 Oxygen saturation in Venous blood 74.1 % [facility] XR Chest Single viewon 01-27 [facility] Radiology Study observation (narrative) [facility] XR Chest Single viewOrdered By: Saray Rosario on 01-28-2024 [facility] [employer] Work Phone: [facility] YADIRALUIZA Brown ([id number]) 1955 F Date Time Provider Department 01/20/24 MARYAM FRANCO INTMWS During your visit today, we recorded the following information about you: Tao Meyers RN 01/20/2024 1:55 PM Signed Maurice Delgado nurse with [facility] calling to confirm that provider will continue to follow and sign orders for pt for [facility]. Please call Maurice back after provider review and confirmation. Joan Johnson APRN.CLEAN UP WORKER 01/20/2024 2:56 PM Signed PCP agreeable to follow and sign. Thank you Joan Johnson APRN.Nicole Delcid RN 01/20/2024 3:06 PM Signed Maurice Delgado nurse with [facility] called and is notified of providers results and instructions. Pt voices understanding. Nicole Rudd RN Allergies As of Date: 01/20/2024 Noted Allergy Reaction ENTEX (PHENYLEPHRINE-GUAIFENE SIN) 04/22/2005 5 - Intolerance TETANUS VACCINES AND TOXOID 04/22/2005 7 - Swelling Date Reviewed: 01/03/2024 Reviewed by: Lisette Corona LPN - Fully Assessed Reason for Visit: [facility] [Other] Prescriptions as of 01/20/2024 - zolpidem (AMBIEN) 10 mg Take 1 tablet by mouth at bedtime as needed (insomnia) for up to 30 days. Do not start before January 01, 2024. - furosemide (LASIX) 20 mg tablet [...] by this patient by: PATIENT Seth Chawla [facility] Problem List As Of Date 01/20/2024 Noted Resolved COUGH [R05.9] 04/01/2006 05/03/2006 OBST [...] 12/24/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) [Z93.0] 01/03/2024 Encounter Status:Closed by NICOLE RUDD on 7/18/24 [facility] 01-19-2024 CNPN Telephone (INTMWS) LUIZA MAY ([id number]) 1955 F Date Time Provider Department 01/19/24 MARYAM FRANCO INTMWS During your visit today, we recorded the following information about you: Zabrina Child 01/19/2024 9:15 AM Signed [facility] pharmacy in [place] calling for a refill of Rx Phenytoin (not seen in current refill list). Any questions please call them at [phone] Joanie Barclay MA 01/19/2024 10:03 AM Signed Phone call to [facility] pharmacy to inform that our records show pt not taking on 12/02/23. Pharmacy states they last delivered on 12/13/23. [facility] will call patient to confirm that she is not taking. [facility] will return call to our office to inform if patient taking or not. AL Nicolas Julia, LPN 01/21/2024 9:51 AM Signed Spoke with [facility] pharmacy and patient did confirm with pharmacy that she is no longer taking phenytoin. Allergies As of Date: 01/19/2024 Noted Allergy Reaction ENTEX (PHENYLEPHRINE-GUAIFENE SIN) 04/22/2005 5 - Intolerance TETANUS VACCINES AND TOXOID 04/22/2005 7 - Swelling Date Reviewed: 01/03/2024 Reviewed by: Lisette Corona LPN - Fully Assessed Reason for Visit: Refill Request [94] Prescriptions as of 01/21/2024 - zolpidem (AMBIEN) 10 mg Take 1 tablet by mouth at bedtime as needed (insomnia) for up to 30 days. Do not start before January 01, 2024. - furosemide (LASIX) 20 mg tablet [...] by this patient by: PATIENT Seth Chawla [facility] Problem List As Of Date 01/19/2024 Noted Resolved COUGH [R05.9] 04/01/2006 05/03/2006 OBST [...] 12/24/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) [Z93.0] 01/03/2024 Encounter Status:Closed by SHELLY FINNEY on 01/21/24 [facility] 01-05-2024 CNPN Telephone (GENSWS) LUIZA MAY ([id number]) 1955 F Date Time Provider Department 01/05/24 DEX HDZ GENSWS During your visit today, we recorded the following information about you: Jackie Lee 01/05/2024 9:35 AM Signed Pts daughter called regarding removal of Trach. She is not sure who is supposed to do it. ENT office does not remove trachs. She thinks she is waiting on a call from someone but does not know who is helping get this accomplished as she has not heard back. Does Dr. Hdz removed them. Please advise pts daughter, Ameena. Patsy Sagastume, FINESSE 01/05/2024 11:52 AM Signed Luiza's daughter called again this morning, very [...] he has referred her to ENT and [facility], which we are not able to schedule with. She voiced understanding. Additional message sent to the pulmonary department. Patsy Sagastume RN Allergies As of Date: 01/05/2024 Noted Allergy Reaction ENTEX (PHENYLEPHRINE-GUAIFENE SIN) 04/22/2005 5 - Intolerance TETANUS VACCINES AND TOXOID 04/22/2005 7 - Swelling Date Reviewed: 01/03/2024 Reviewed by: Lisette Corona LPN - Fully Assessed Reason for Visit: Patient Question [2817] Prescriptions as of 01/05/2024 - zolpidem (AMBIEN) 10 mg Take 1 tablet by mouth at bedtime as needed (insomnia) for up to 30 days. Do not start before January 01, 2024. - furosemide (LASIX) 20 mg tablet [...] by this patient by: PATIENT Seth Chawla [facility] Problem List As Of Date 01/05/2024 Noted Resolved COUGH [R05.9] 04/01/2006 05/03/2006 OBST [...] 08/10/2023 Malnutrition of mild degree (HCC) [E44.1] 12/23 (more content not included)... Normal [facility] CNPNon 01-04-2024 CNPN Telephone (INTMWS) LUIZA MAY ([id number]) 1955 F Date Time Provider Department 01/04/24 MARYAM FRANCO INTMWS During your visit today, we recorded the following information about you: Gisell Mendoza RN 01/04/2024 11:10 AM Signed Pt was seen by Dr. Herman yesterday. [...] agreeable to do so and transferred to appointment manager. Pt to see [facility] as advised by provider yesterday, as well. Gisell Mendoza RN Allergies As of Date: 01/04/2024 Noted Allergy Reaction ENTEX (PHENYLEPHRINE-GUAIFENE SIN) 04/22/2005 5 - Intolerance TETANUS VACCINES AND TOXOID 04/22/2005 7 - Swelling Date Reviewed: 01/03/2024 Reviewed by: Lisette Corona LPN - Fully Assessed Reason for Visit: Patient Update [1234] Prescriptions as of 01/04/2024 - zolpidem (AMBIEN) 10 mg Take 1 tablet by mouth at bedtime as needed (insomnia) for up to 30 days. Do not start before January 01, 2024. - furosemide (LASIX) 20 mg tablet [...] by this patient by: PATIENT Seth Chawla [facility] Problem List As Of Date 01/04/2024 Noted Resolved COUGH [R05.9] 04/01/2006 05/03/2006 OBST [...] degree (HCC) [E44.1] 12/24/[address] ([facility]) [Z93.0] 01/03/2024 Encounter Status:Closed by GISELL MENDOZA on 01/04/24 [facility] JAMESN Telephone (PULMMN) YOVANNYLUIZA ROGERS ([id number]) 1955 F Date Time Provider Department 01/04/24 BARBER SHERMAN During your visit today, we recorded the following information about you: Mame Estrella 01/04/2024 10:00 AM Signed Patient called and self referring. She is looking to have her trach removed. Patsy Sagastume, FINESSE 01/05/2024 11:48 AM Signed Luiza's daughter called again this morning, very upset that she still has not hear anything back regarding having her mother's trach removed. Advised that I would be happy to send another note along, but it would be up to the office to return her call, I cannot schedule for them. She voiced understanding. Patsy Sagastume RN January 05, 2024 11:45 AM Adriane Riley APRN.CLEAN UP WORKER 01/07/2024 3:24 PM Addendum Called Ameena, patient's daughter. She stated she was able to get an appointment locally for trach decannulation. She defers appointment with our IP team at [facility] at this time. Ameena was thankful for the call back and will call our office if there any any issues or questions. Adriane Riley APRN.CLEAN UP WORKER January 07, 2024 3:20 PM Allergies As of Date: 01/04/2024 Noted Allergy Reaction ENTEX (PHENYLEPHRINE-GUAIFENE SIN) 04/22/2005 5 - Intolerance TETANUS VACCINES AND TOXOID 04/22/2005 7 - Swelling Date Reviewed: 01/03/2024 Reviewed by: Lisette Corona LPN - Fully Assessed Reason for Visit: Appointment [186] Primary Visit Diagnosis: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) [Z93.0] [Z93.0] Prescriptions as of 01/07/2024 - zolpidem (AMBIEN) 10 mg Take 1 tablet by mouth at bedtime as needed (insomnia) for up to 30 days. Do not start before January 01, 2024. - furosemide (LASIX) 20 mg tablet [...] by this patient by: PATIENT Seth Chawla [facility] Problem List As Of Date 01/04/2024 Noted Resolved COUGH [R05.9] 04/01/2006 05/03/2006 OBST [...] 12/24/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) [Z93.0] 01/03/2024 [place] (more content not included)... Normal [facility] CNOVon 01-03-2024 CNOV Office Visit (INTMWS ) LUIZA MAY ([id number]) 1955 F Date Time Provider Department 01/03/24 2:20 PM ISSA HERMAN INTMWS During your visit today, we recorded the following information about you: Temperature Pulse Respiration Blood pressure 98.7 degrees 76/minute 20/minute 104/66 Weight 58.5 kg Issa Herman MD 01/03/2024 3:05 PM Signed This note was created using [employer]. Subjective Luiza May is a 68 year old female. PCP Maryam Franco MD. She was here with her significant other. She initially stated she had not been to ENT, but partner indicated they were there a few weeks ago. Tracheostomy was not removed, reason was not clear. She was supposed to see her [facility], but was unable to schedule, possibly [...] (HCC) - ICD9: 496, ICD10: J44.9 See [facility]. They may need to address #1. Issa Herman MD Referring Provider: SELF [200] Allergies As of Date: 01/03/2024 Noted Allergy Reaction ENTEX (PHENYLEPHRINE-GUAIFENE SIN) 04/22/2005 5 - Intolerance TETANUS VACCINES AND TOXOID 04/22/2005 7 - Swelling Date Reviewed: 01/03/2024 Reviewed by: Lisette Corona LPN - Fully Assessed Reason for Visit: 4 week follow-up [Other] Primary Visit Diagnosis: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) [Z93.0] Other Visit Diagnoses:Anxiety [F41.9] Chronic obstructive pulmonary disease, unspecified COPD type (HCC) [J44.9] Prescriptions as of 01/03/2024 - zolpidem (AMBIEN) 10 mg Take 1 tablet by mouth at bedtime as needed (insomnia) for up to 30 days. Do not start before January 01, 2024. - furosemide (LASIX) 20 mg tablet [...] Take 1 tablet by mouth daily before b (more content not included)... [facility] Telephone (INTMWS) LUIZA MAY ([id number]) 1955 F Date Time Provider Department 12/30/23 JOAN JOHNSON During your visit today, we recorded the following information about you: Chrystal Taylor 12/30/2023 9:59 AM Signed Patient's Ambien Rx was sent to [place] pharmacy with a fill date of 01/01/24. Patient wants to know if it can be switched to [facility] in [place]. Lorrie Allen MA 12/30/2023 10:05 AM Signed Pended Rx to [facility]. Update pt once sent. AL Talbert Joy, APRN.CNP 12/30/2023 12:27 PM Signed Please call [place] [facility] to cancel already sent prescription [facility] Thank you Joan Johnson APRN.Katty Alberts MA 12/30/2023 12:42 PM Signed Tried calling Pharmacy, closed for lunch. Will try back after 1 Katty Alvarado MA 12/30/2023 2:00 PM Signed Pharmacy notified and prescription cancelled. Joan Johnson APRN.CNP 12/30/2023 2:11 PM Signed Prescription sent as requested. Joan Johnson APRN.CNP PDMP website checked and validated. All prescriptions have been APPROPRIATELY filled. No suspicious activity was identified. 12/30/2023 by FLACA Gil Laurie Lynn, LPN 12/31/2023 10:22 AM Signed Pt notified prescription was sent to the pharmacy. Nava Connell LPN Allergies As of Date: 12/30/2023 Noted Allergy Reaction ENTEX (PHENYLEPHRINE-GUAIFENE SIN) 04/22/2005 5 - Intolerance TETANUS VACCINES AND TOXOID 04/22/2005 7 - Swelling Date Reviewed: 12/24/2023 Reviewed by: Dex Hdz MD - Fully Assessed Reason for Visit: Switch rx to different pharmacy [Other] Visit Diagnosis:Insomnia, unspecified type [G47.00] Order(s):[START ON 01/01/2024] zolpidem (AMBIEN) 10 mgTake 1 tablet by mouth at bedtime as needed (insomnia) for up to 30 days. Do not start before January 01, 2024.Disp: 30 tabletRfl: 0 Prescriptions as of 12/31/2023 - zolpidem (AMBIEN) 10 mg Take 1 tablet by mouth at bedtime as needed (insomnia) for up to 30 days. Do not start before January 01, 2024. - furosemide (LASIX) 20 mg tablet [...] by this patient by: PATIENT Seth Chawla RPh Problem List As Of Date 12/30/2023 Noted Resolved COUGH [R05.9] 04/01/2006 05/03/2006 OBST [...] chronic respiratory acidosis (HCC) [J9*08/07/2023 Hypophosphatemia [E83.39] (more content not included)... Normal [facility] CNOVon 12-24-2023 CNOV Office Visit (GENSWS ) LUIZA MAY Stephanie ([id number]) 1955 F Date Time Provider Department 12/24/23 1:30 PM DEX HDZ GENIBETHS During your visit today, we recorded the following information about you: Temperature Pulse Weight Height 97.9 degrees 80/minute 59 kg 1.6 m Patsy Sagastume, FINESSE 12/24/2023 3:26 PM Signed REVIEW OF SYSTEMS: General: The patient NOTES [...] last Mammogram screening? Unknown Last Colonoscopy: 2016 FINESSE Padgett Richard T, MD 12/24/2023 5:02 PM Signed FOLLOW UP VISIT - PEG TUBE REMOVAL NAME: Luiza Brown [facility] NO.: [id number] DATE OF SERVICE: 12/24/2023 : 1955 REFERRING [...] balloon currently deflated. This was placed at [facility]. She has an appointment with pulmonary at [facility] on January 12 she tells me. Luiza [...] office without airway supplies in case a trache (more content not included)... Normal [facility] 12-21-2023 CNPN Telephone (INTMWS) LUIZA MAY ([id number]) 1955 F Date Time Provider Department 12/21/23 ISSA HERMAN INTWS During your visit today, we recorded the following information about you: Miranda Connell LPN 12/21/2023 9:49 AM Signed Maurice from [facility] calling [facility] visits will remain 2 times weekly for 6 weeks. Trying to educate patient to keep dressing around her G-tube. Area surrounding G-tube is red and irritated, nursing is using nystatin powder with dressing changes, if that is alright with the provider? Aware patient has General Surgery appt on Wednesday12/24/2023. Please advise Lise Major APRN.JAMES 12/21/2023 12:06 PM Signed Okay for nystatin powder with dressing changes Lise Major APRN.CLEAN UP WORKER Renee Aguilera, [place] 12/21/2023 1:08 PM Signed Maurice notified. Allergies As of Date: 12/21/2023 Noted Allergy Reaction ENTEX (PHENYLEPHRINE-GUAIFENE SIN) 04/22/2005 5 - Intolerance TETANUS VACCINES AND TOXOID 04/22/2005 7 - Swelling Date Reviewed: 12/02/2023 Reviewed by: Steven Gillette LPN - Fully Assessed Reason for Visit: Orders [681] Prescriptions as of 12/21/2023 - zolpidem (AMBIEN) 10 mg Take 1 [...] managed by this patient by: PATIENT Seth Wally, [facility] Problem List As Of Date 12/21/2023 Noted Resolved COUGH [R05.9] 04/01/2006 05/03/2006 OBST [...] Hypokalemia [E87.6] 08/07/2023 08/10/2023 Encounter Status:Closed by RENEE AGUILERA on 12/21/23 [facility]get[facility] L[facility] ([id number]) 1955 F Date Time Provider Department 12/13/23 [facility] During your visit today, we recorded the following information about you: Bhavana Garza LPN 12/13/2023 11:49 AM Signed FYI: Radha with [facility] calls to report she had pt squaded to [facility]. Radha reports pt showed signs of infection in G-tube and trach. Pt was hallucinating. YULI Quinteros Terri, APRN.CITY DISPATCHER 12/13/2023 3:57 PM Signed See other note regarding this patient today, can address in other phone encounter. Allergies As of Date: 12/13/2023 Noted Allergy Reaction ENTEX (PHENYLEPHRINE-GUAIFENE SIN) 04/22/2005 5 - Intolerance TETANUS VACCINES AND TOXOID 04/22/2005 7 - Swelling Date Reviewed: 12/02/2023 Reviewed by: Steven Gillette LPN - Fully Assessed Reason for Visit: Patient Update [1234] Prescriptions as of 12/13/2023 - zolpidem (AMBIEN) 10 mg Take 1 [...] by this patient by: PATIENT Seth Chawla [facility] Problem List As Of Date 12/13/2023 Noted Resolved COUGH [R05.9] 04/01/2006 05/03/2006 OBST [...] Hypokalemia [E87.6] 08/07/2023 08/10/2023 Encounter Status:Closed by EDILBERTO MAGANA on 12/13/23 [facility] CNPN Telephone (INTMWS) SPENCER MAYA Stephanie ([id number]) 1955 F Date Time Provider Department 12/13/23 MARYAM FRANCO During your visit today, we recorded the following information about you: Gisell Mendoza RN 12/13/2023 11:06 AM Addendum Ag Rhoades, nurse with [facility] calling with update that patient went to [facility] ER on 12/06/23. Patient to follow up with General Surgery. Pt has appt with General Surgery on 12/24/23. Please contact patient if follow-up with PCP is advised, as well. FINESSE Mckeon Terri, PUBLIC WORKS MANAGER.CITY DISPATCHER 12/13/2023 3:56 PM Signed Check [facility] hospital records to see if needing PCP visit in addition to general surgery. Jordana Price LPN 12/13/2023 4:48 PM Signed Attempted to contact Ag Rhoades, nurse with [facility] but no answer. Left message to call and ask to speak to a nurse regarding an appointment with primary regarding a couple questions. Wanted to know how often they will be visiting patient. Patient wouldn't necessarily need f/u with primary unless wound is not healing. When they do their visit, are they able to check wound and let us know if follow up is needed. Sushila Espinoza RN 12/14/2023 9:30 AM Addendum Ag Rhoades returns call and reports that patient is seen twice weekly by [facility]. Next visit is scheduled for tomorrow with polymer materials consultant Maurice who will assess and notify of any concerns or changes to trach/peg sites. Patient seen 12/13/2023 in ER for green drainage to trach and peg sites. Patient is currently on Bactrim DS twice daily for 7 days from [facility] ER visit yesterday. Follow up with General Surgery Dr. Hdz is 12/24/2023. Sushila Espinoza RN Allergies As of Date: 12/13/2023 Noted Allergy Reaction ENTEX (PHENYLEPHRINE-GUAIFENE SIN) 04/22/2005 5 - Intolerance TETANUS VACCINES AND TOXOID 04/22/2005 7 - Swelling Date Reviewed: 12/02/2023 Reviewed by: Steven Gillette LPN - Fully Assessed Reason for Visit: Patient Update [1234] Prescriptions as of 12/14/2023 - zolpidem (AMBIEN) 10 mg Take 1 [...] by this patient by: PATIENT Seth Chawla [facility] Problem List As Of Date 12/13/2023 Noted Resolved COUGH [R05.9] 04/01/2006 05/03/2006 OBST [...] hematoma (HCC) [S06.5XAA] 08/05/2023 Fall [W19.XXXA] 08/06/2023 S (more content not included)... Normal [facility] Jon 12-03-2023 JAMESN Telephone (INTMWS) LUIZA MAY ([id number]) 1955 F Date Time Provider Department 12/03/23 MARYAM FRANCO During your visit today, we recorded the following information about you: Gisell Mendoza RN 12/03/2023 9:34 AM Signed [facility] calling with questions regarding pt's medications. Questions answered. Gisell Mendoza RN Allergies As of Date: 12/03/2023 Noted Allergy Reaction ENTEX (PHENYLEPHRINE-GUAIFENE SIN) 04/22/2005 5 - Intolerance TETANUS VACCINES AND TOXOID 04/22/2005 7 - Swelling Date Reviewed: 12/02/2023 Reviewed by: Steven Gillette LPN - Fully Assessed Prescriptions as of 12/03/2023 - zolpidem (AMBIEN) 10 mg Take 1 [...] managed by this patient by: PATIENT Seth Wally, [facility] Problem List As Of Date 12/03/2023 Noted Resolved COUGH [R05.9] 04/01/2006 05/03/2006 OBST [...] Hypokalemia [E87.6] 08/07/2023 08/10/2023 Encounter Status:Closed by GISELL MENDOZA on 12/03/23 [facility] CNPN Telephone (INTMWS) LUIZA MAY ([id number]) 1955 F Date Time Provider Department 12/03/23 MARYAM FRANCO INTMWS During your visit today, we recorded the following information about you: Nicole Rudd, FINESSE 12/03/2023 1:33 PM Signed Nemo RN with [facility] and reports they opened HH orders [...] She reports when Pt was discharged from [facility] she had been getting her Magnesium, Phos, [...] her outside medication list on 11/11/23 from [facility], but it is solution for the g-tube Sending updated medication list to fax # [phone]. Issa Herman MD 12/03/2023 3:52 PM Signed Schedule follow up with Joan Johnson. She can sign orders for PCP. I saw patient for referrals to have tubes removed and she has been referred. Katty Alvarado MA 12/03/2023 4:11 PM Signed Will Joan follow? Nava Connell LPN 12/06/2023 10:24 AM Signed 1)[facility] calling because they need verbal orders to see pt for nursing and they need verbal orders today or they will have to drop her. 2)need verbal orders or faxed orders [phone] for Trach size AND G-tube care, water and flushes. See message below for all that is needed and other information. Routing to Dr. Herman who saw pt last. Provider/team is unavailable. YULI Schmidt Victor H, MD 12/06/2023 1:37 PM Signed Okay Home Health orders, pending follow up with PCP team. Eli Snow LPN 12/06/2023 1:58 PM Signed [facility]. Pt has appt with gen surg 12/24/23. No f/u that we can tell here for pulmonary. Allergies As of Date: 12/03/2023 Noted Allergy Reaction ENTEX (PHENYLEPHRINE-GUAIFENE SIN) 04/22/2005 5 - Intolerance TETANUS VACCINES AND TOXOID 04/22/2005 7 - Swelling Date Reviewed: 12/02/2023 Reviewed by: Steven Gillette LPN - Fully Assessed Reason for Visit: Home Health Point of Care Results [4062] Medication Problem [65] Prescriptions as of 12/06/2023 - zolpidem (AMBIEN) 10 mg Take 1 [...] by this patient by: PATIENT Seth Chawla [facility] Problem List As Of Date 12/03/2023 Noted Resolved COUGH [R05.9] 04/01/2006 05/03/2006 OBST CHRON BRONCHITIS WITH EXAC [J44.1] 05/03/2006 VIRAL PNEUMONIA NOS [J12.9] 05/03/2006 Panlobular emphysema (HCC) [J43.1] 05/03/2006 Chronic pulmonary heart disease (HCC) [I27.9] 05/03/2006 10/01/2022 ABN BLOOD CHEMISTRY NEC [R79.89] 05/03/2006 BENIGN NEOPLASM LG BOWEL [D12.6] 06/09/2006 ABN FIND-STOOL CONTENTS-OCC BLOOD (more content not included)... Normal [facility] CNOVon 12-02-2023 CNOV Office Visit (INTMWS ) YOVANNYLUIZA ROGERS ([id number]) 1955 F Date Time Provider Department 12/02/23 2:00 PM ISSA HERMAN INTMWS During your visit today, we recorded the following information about you: Pulse Blood pressure Weight Height 102/minute 98/60 59.1 kg 1.6 m Issa Herman MD 12/02/2023 3:09 PM Signed This note was created using Flightfoxriter. Subjective Patient presents with: Recheck: [facility] discharge, trach and GI tube, want them removed PCP MD [place] [place] Stephanie Yovannyjavad is a 68 year old female here with her brother. History was complicated with admissions in [facility] [place], and recent discharge from [facility] (November 24). Discharge records from [facility] were not on file. Medications were reviewed with the patient. She mainly needed tracheostomy and G-tube removed. She reported eating regular food, and passing her swallowing tests. She was taking her medications orally. She reported dilantin was discontinued in the prison. She had her medications other than Ambien. She requested pain medication for the G tube. She was not on medication for abdominal pain in the prison. I explained I am not starting any [...] Mucous membranes are moist. Pharynx: Oropharynx is clear (more content not included)... Normal [facility] 11-26-2023 [facility] Telephone (INTMWS) LUIZA MAY ([id number]) 1955 F Date Time Provider Department 11/26/23 MARYAM FRANCO INTWS During your visit today, we recorded the following information about you: May Menchaca 11/26/2023 12:15 PM Signed [facility] asking for medication that is . Miranda Connell LPN 11/26/2023 1:00 PM Signed Patient has been identified by name and date of : Pharmacy phones for refill(s): Requested Prescriptions Pending Prescriptions Disp Refills Cholecalciferol, Vitamin D3, 25 mcg (1,000 unit) cap 30 capsule 3 Sig: Take 1 capsule by mouth once daily. Date of last office visit in primary care: 09/23/2023 Date of next office visit in primary care: 11/26/2023 Please advise. Thank you. Miranda Connell LPN. Allergies As of Date: 11/26/2023 Noted Allergy Reaction ENTEX (PHENYLEPHRINE-GUAIFENE SIN) 04/22/2005 5 - Intolerance TETANUS VACCINES AND TOXOID 04/22/2005 7 - Swelling Date Reviewed: 09/23/2023 Reviewed by: Lorraine Clement OCCA - Fully Assessed Reason for Visit: requesting medication that is [Other] Order(s):Cholecalcifero l, Vitamin D3, 25 mcg (1,000 unit) capTake 1 capsule by mouth once daily.Disp: 30 capsuleRfl: 3 Prescriptions as of 11/26/2023 - Cholecalciferol, Vitamin D3, 25 mcg (1,000 unit) cap Take 1 capsule by mouth once daily. - ARIPiprazole (ABILIFY) 2 mg tablet Take [...] tablet by mouth daily at bedtime. - albuterol HFA (PROAIR HFA) 90 mcg/actuation inhaler Inhale 2 Puffs as instructed every 6 hours as needed. - MEDICAL SUPPLY Portable oxygen cylinders Meds Comments as of 08/11/2023: 08/11/23 The medications are managed by this patient by: PATIENT Seth Chawla, [facility] Problem List As Of Date 11/26/2023 Noted Resolved COUGH [R05.9] 04/01/2006 05/03/2006 OBST [...] [E83.42] 08/07/2023 08/10/2023 Hypokalemia [E87.6] 08/07/2023 08/10/2023 Prescriptions ordered this encounter Disp Refills Start End CHOLECALCIFEROL (VITAMIN D3) 25 MCG * 30 c* 3 11/25 (more content not included)... Normal [facility] .Auto Diffon 11-11-2023 Basophil, Absolute 0.0 10 3/mcL Normal 0.0-0.3 formerly [facility] ([place]) Comment on above: Performed By: #### C BC, MG, PHOS, GFR, CMP, ADIFF, DIFF, ANEU, MORPH #### [facility] [address] [place] [address] Basophils/100 WBC (Bld) 0.5 % Normal 0.0-2.5 A [facility] ([place]) Comment on above: Performed By: #### C BC, MG, PHOS, GFR, CMP, ADIFF, DIFF, ANEU, MORPH #### [address] [address] Eosinophil, Absolute 0.3 10 3/mcL Normal 0.0-0.7 [facility] ([place]) Comment on above: Performed By: #### C BC, MG, PHOS, GFR, CMP, ADIFF, DIFF, ANEU, MORPH #### [address] [address] Eosinophils/100 WBC (Bld) 5.6 % Normal 0.0-6.0 [facility] ([place]) Comment on above: Performed By: #### C BC, MG, PHOS, GFR, CMP, ADIFF, DIFF, ANEU, MORPH #### [address] [address] Lymphocyte, Absolute 1.8 10 3/mcL Normal 0.9-4.3 [facility] ([place]) Comment on above: Performed By: #### C BC, MG, PHOS, GFR, CMP, ADIFF, DIFF, ANEU, MORPH #### [address] [address] Lymphocytes/100 WBC (Bld) 29.5 % Normal 20.0-40.0 [facility] ([place]) Comment on above: Performed By: #### C BC, MG, PHOS, GFR, CMP, ADIFF, DIFF, ANEU, MORPH #### [address] [address] Monocyte, Absolute 0.7 10 3/mcL Normal 0.1-1.4 [facility] ([place]) Comment on above: Performed By: #### C BC, MG, PHOS, GFR, CMP, ADIFF, DIFF, ANEU, MORPH #### [address] [address] Monocytes/100 WBC (Bld) 11.0 % Normal 2.0-13.0 [facility] ([place]) Comment on above: Performed By: #### C BC, MG, PHOS, GFR, CMP, ADIFF, DIFF, ANEU, MORPH #### [address] [address] Neutrophils/100 WBC (Bld) 53.4 % Normal 50.0-75.0 [facility] ([place]) Comment on above: Performed By: #### C BC, MG, PHOS, GFR, CMP, ADIFF, DIFF, ANEU, MORPH #### [address] [address] .NEUABSon 11-11-2023 Neutrophil, Absolute 3.2 10 3/mcL Normal 2.3-8.1 [facility] ([place]) Comment on above: Performed By: #### C BC, MG, PHOS, GFR, CMP, ADIFF, DIFF, ANEU, MORPH #### [place] [address] CBCon 11-11-2023 Erythrocyte distribution width (RBC) [Ratio] 14.5 % Normal 11.5-15.5 [facility] ([place]) Comment on above: Performed By: #### C BC, MG, PHOS, GFR, CMP, ADIFF, DIFF, ANEU, MORPH #### [place] [address] Hematocrit (Bld) [Volume fraction] 30.8 % Low 34.0-46.0 [facility] ([place]) Comment on above: Performed By: #### C BC, MG, PHOS, GFR, CMP, ADIFF, DIFF, ANEU, MORPH #### [place] [address] Hgb 10.0 G/dL Low 12.0-16.0 [facility] ([place]) Comment on above: Performed By: #### C BC, MG, PHOS, GFR, CMP, ADIFF, DIFF, ANEU, MORPH #### [place] [address] MCH (RBC) [Entitic mass] 29.6 pg Normal 27.0-33.0 [facility] ([place]) Comment on above: Performed By: #### C BC, MG, PHOS, GFR, CMP, ADIFF, DIFF, ANEU, MORPH #### [place] [address] MCHC 32.5 G/dL Normal 32.0-36.0 [facility] ([place]) Comment on above: Performed By: #### C BC, MG, PHOS, GFR, CMP, ADIFF, DIFF, ANEU, MORPH #### [address] [address] MCV (RBC) [Entitic vol] 91.0 fL Normal 80.0-99.0 A [facility] ([place]) Comment on above: Performed By: #### C BC, MG, PHOS, GFR, CMP, ADIFF, DIFF, ANEU, MORPH #### [place] [address] Platelet 163 10 3/mcL Normal 150-450 [facility] ([place]) Comment on above: Performed By: #### C BC, MG, PHOS, GFR, CMP, ADIFF, DIFF, ANEU, MORPH #### [place] [address] Platelet mean volume (Bld) [Entitic vol] 7.5 fL Normal 6.6-10.5 [facility] ([place]) Comment on above: Performed By: #### C BC, MG, PHOS, GFR, CMP, ADIFF, DIFF, ANEU, MORPH #### [place] [address] RBC 3.39 10 6/mcL Low 4.10-5.30 [facility] ([place]) Comment on above: Performed By: #### C BC, MG, PHOS, GFR, CMP, ADIFF, DIFF, ANEU, MORPH #### [place] [address] WBC 6.1 10 3/mcL Normal 4.5-10.8 [facility] ([place]) Comment on above: Performed By: #### C BC, MG, PHOS, GFR, CMP, ADIFF, DIFF, ANEU, MORPH #### [address] [address] .Auto Diffon 11-08-2023 Basophil, Absolute 0.0 10 3/mcL Normal 0.0-0.3 formerly [facility] ([place]) Comment on above: Performed By: #### C BC, MG, PHOS, GFR, CMP, ADIFF, DIFF, ANEU, MORPH #### [address] [address] Basophils/100 WBC (Bld) 0.8 % Normal 0.0-2.5 A [facility] ([place]) Comment on above: Performed By: #### C BC, MG, PHOS, GFR, CMP, ADIFF, DIFF, ANEU, MORPH #### [address] [address] Eosinophil, Absolute 0.2 10 3/mcL Normal 0.0-0.7 [facility] ([place]) Comment on above: Performed By: #### C BC, MG, PHOS, GFR, CMP, ADIFF, DIFF, ANEU, MORPH #### [address] [address] Eosinophils/100 WBC (Bld) 2.9 % Normal 0.0-6.0 [facility] ([place]) Comment on above: Performed By: #### C BC, MG, PHOS, GFR, CMP, ADIFF, DIFF, ANEU, MORPH #### [address] [address] Lymphocyte, Absolute 1.8 10 3/mcL Normal 0.9-4.3 [facility] ([place]) Comment on above: Performed By: #### C BC, MG, PHOS, GFR, CMP, ADIFF, DIFF, ANEU, MORPH #### [address] [address] Lymphocytes/100 WBC (Bld) 33.2 % Normal 20.0-40.0 [facility] ([place]) Comment on above: Performed By: #### C BC, MG, PHOS, GFR, CMP, ADIFF, DIFF, ANEU, MORPH #### [address] [address] Monocyte, Absolute 0.6 10 3/mcL Normal 0.1-1.4 [facility] ([place]) Comment on above: Performed By: #### C BC, MG, PHOS, GFR, CMP, ADIFF, DIFF, ANEU, MORPH #### [address] [address] Monocytes/100 WBC (Bld) 11.2 % Normal 2.0-13.0 A [facility] ([place]) Comment on above: Performed By: #### C BC, MG, PHOS, GFR, CMP, ADIFF, DIFF, ANEU, MORPH #### [address] [address] Neutrophils/100 WBC (Bld) 51.9 % Normal 50.0-75.0 [facility] ([place]) Comment on above: Performed By: #### C BC, MG, PHOS, GFR, CMP, ADIFF, DIFF, ANEU, MORPH #### [address] [address] .GFRon 11-08-2023 GFR >60 Normal formerly [facility] ([place]) Comment on above: Result Comment: GFR Population mean for , Non- Americans Ages 20-29 = 116 mL/min/1.73 sq.m. Ages 30-39 = 107 mL/min/1.73 sq.m. Ages 40-49 = 99 mL/min/1.73 sq.m. Ages 50-59 = 93 mL/min/1.73 sq.m. Ages 60-69 = 85 mL/min/1.73 sq.m. Ages 70+ = 75 mL/min/1.73 sq.m. Chronic Kidney Disease: Less than 60 mL/min/1.73 square meters End Stage Renal Disease: Less than 15 mL/min/1.73 square meters Performed By: #### C BC, MG, PHOS, GFR, CMP, ADIFF, DIFF, ANEU, MORPH #### [address] [address] GFR Non- >60 Normal [facility] ([place]) Comment on above: Result Comment: GFR Population mean for , Non- Americans Ages 20-29 = 116 mL/min/1.73 sq.m. Ages 30-39 = 107 mL/min/1.73 sq.m. Ages 40-49 = 99 mL/min/1.73 sq.m. Ages 50-59 = 93 mL/min/1.73 sq.m. Ages 60-69 = 85 mL/min/1.73 sq.m. Ages 70+ = 75 mL/min/1.73 sq.m. Chronic Kidney Disease: Less than 60 mL/min/1.73 square meters End Stage Renal Disease: Less than 15 mL/min/1.73 square meters Performed By: #### C BC, MG, PHOS, GFR, CMP, ADIFF, DIFF, ANEU, MORPH #### [address] [address] GFR Non- >60 Normal [facility] ([place]) Comment on above: Result Comment: GFR Population mean for , Non- Americans Ages 20-29 = 116 mL/min/1.73 sq.m. Ages 30-39 = 107 mL/min/1.73 sq.m. Ages 40-49 = 99 mL/min/1.73 sq.m. Ages 50-59 = 93 mL/min/1.73 sq.m. Ages 60-69 = 85 mL/min/1.73 sq.m. Ages 70+ = 75 mL/min/1.73 sq.m. Chronic Kidney Disease: Less than 60 mL/min/1.73 square meters End Stage Renal Disease: Less than 15 mL/min/1.73 square meters Performed By: #### C BC, MG, PHOS, GFR, CMP, ADIFF, DIFF, ANEU, MORPH #### [place] [address] GFR >60 Normal formerly [facility] ([place]) Comment on above: Result Comment: GFR Population mean for , Non- Americans Ages 20-29 = 116 mL/min/1.73 sq.m. Ages 30-39 = 107 mL/min/1.73 sq.m. Ages 40-49 = 99 mL/min/1.73 sq.m. Ages 50-59 = 93 mL/min/1.73 sq.m. Ages 60-69 = 85 mL/min/1.73 sq.m. Ages 70+ = 75 mL/min/1.73 sq.m. Chronic Kidney Disease: Less than 60 mL/min/1.73 square meters End Stage Renal Disease: Less than 15 mL/min/1.73 square meters Performed By: #### C BC, MG, PHOS, GFR, CMP, ADIFF, DIFF, ANEU, MORPH #### [address] [address] .NEUABSon 11-08-2023 Neutrophil, Absolute 2.9 10 3/mcL Normal 2.3-8.1 [facility] ([place]) Comment on above: Performed By: #### C BC, MG, PHOS, GFR, CMP, ADIFF, DIFF, ANEU, MORPH #### [address] [address] BMPon 11-08-2023 CO2 [Moles/Vol] mmol/L Critically abnormal 22-32 [facility] ([place]) Comment on above: Performed By: #### C BC, MG, PHOS, GFR, CMP, ADIFF, DIFF, ANEU, MORPH #### [place] [address] Electrolyte Balance Unable to Calculate Normal 4.0-15. 0 [facility] ([place]) Comment on above: Result Comment: Unab le to calculate this test result accurately. Results used to calculate this test are outside the reportable range. Performed By: #### C BC, MG, PHOS, GFR, CMP, ADIFF, DIFF, ANEU, MORPH #### [place] [address] BUN/Creatinine Ratio 31.7 ratio High 10.0-22.0 [facility] ([place]) Comment on above: Performed By: #### C BC, MG, PHOS, GFR, CMP, ADIFF, DIFF, ANEU, MORPH #### [place] [address] Calcium [Mass/Vol] 8.8 mg/dL Normal 8.7-10.4 [facility] ([place]) Comment on above: Performed By: #### C BC, MG, PHOS, GFR, CMP, ADIFF, DIFF, ANEU, MORPH #### [place] [address] Chloride [Moles/Vol] 95 mmol/L Low 98-110 [facility] ([place]) Comment on above: Performed By: #### C BC, MG, PHOS, GFR, CMP, ADIFF, DIFF, ANEU, MORPH #### [place] [address] Creatinine [Mass/Vol] 0.60 mg/dL Normal 0.50-1.20 [facility] ([place]) Comment on above: Performed By: #### C BC, MG, PHOS, GFR, CMP, ADIFF, DIFF, ANEU, MORPH #### [place] [address] Glucose [Mass/Vol] 77 mg/dL Low 82-115 [facility] ([place]) Comment on above: Performed By: #### C BC, MG, PHOS, GFR, CMP, ADIFF, DIFF, ANEU, MORPH #### [place] [address] Potassium [Moles/Vol] 4.0 mmol/L Normal 3.5-5.0 [facility] ([place]) Comment on above: Performed By: #### C BC, MG, PHOS, GFR, CMP, ADIFF, DIFF, ANEU, MORPH #### [place] [address] Sodium [Moles/Vol] 144 mmol/L Normal 136-145 [facility] ([place]) Comment on above: Performed By: #### C BC, MG, PHOS, GFR, CMP, ADIFF, DIFF, ANEU, MORPH #### [place] [address] Urea nitrogen [Mass/Vol] 19.0 mg/dL Normal 8.0-22.0 [facility] ([place]) Comment on above: Performed By: #### C BC, MG, PHOS, GFR, CMP, ADIFF, DIFF, ANEU, MORPH #### [place] [address] CBCon 11-08-2023 Erythrocyte distribution width (RBC) [Ratio] 15.3 % Normal 11.5-15.5 [facility] ([place]) Comment on above: Performed By: #### C BC, MG, PHOS, GFR, CMP, ADIFF, DIFF, ANEU, MORPH #### [place] [id number] Hematocrit (Bld) [Volume fraction] 29.9 % Low 34.0-46.0 [facility] ([place]) Comment on above: Performed By: #### C BC, MG, PHOS, GFR, CMP, ADIFF, DIFF, ANEU, MORPH #### [place] [address] Hgb 9.6 G/dL Low 12.0-16.0 [facility] ([place]) Comment on above: Performed By: #### C BC, MG, PHOS, GFR, CMP, ADIFF, DIFF, ANEU, MORPH #### [place] [address] MCH (RBC) [Entitic mass] 29.7 pg Normal 27.0-33.0 [facility] [place] ([place] Comment on above: Performed By: #### C BC, MG, PHOS, GFR, CMP, ADIFF, DIFF, ANEU, MORPH #### [place] [address] MCHC 32.1 G/dL Normal 32.0-36.0 [facility] [place] ([place]) Comment on above: Performed By: #### C BC, MG, PHOS, GFR, CMP, ADIFF, DIFF, ANEU, MORPH #### [place] [address] MCV (RBC) [Entitic vol] 92.7 fL Normal 80.0-99.0 [facility] ([place]) Comment on above: Performed By: #### C BC, MG, PHOS, GFR, CMP, ADIFF, DIFF, ANEU, MORPH #### [place] [address] Platelet 188 10 3/mcL Normal 150-450 [facility] [place] ([place]) Comment on above: Performed By: #### C BC, MG, PHOS, GFR, CMP, ADIFF, DIFF, ANEU, MORPH #### [place] [address] Platelet mean volume (Bld) [Entitic vol] 7.9 fL Normal 6.6-10.5 [facility] [place] ([place] Comment on above: Performed By: #### C BC, MG, PHOS, GFR, CMP, ADIFF, DIFF, ANEU, MORPH #### [place] [address] RBC 3.23 10 6/mcL Low 4.10-5.30 [facility] [place] ([place] Comment on above: Performed By: #### C BC, MG, PHOS, GFR, CMP, ADIFF, DIFF, ANEU, MORPH #### [place] [address] WBC 5.5 10 3/mcL Normal 4.5-10.8 [facility] [place] ([place] Comment on above: Performed By: #### C BC, MG, PHOS, GFR, CMP, ADIFF, DIFF, ANEU, MORPH #### [place] [address] CMPon 11-08-2023 CO2 [Moles/Vol] mmol/L Critically abnormal 22-32 [facility] [place] ([place] Comment on above: Performed By: #### C BC, MG, PHOS, GFR, CMP, ADIFF, DIFF, ANEU, MORPH #### [place] [address] Electrolyte Balance Unable to Calculate Normal 4.0-15. 0 [facility] [place] ([place] Comment on above: Result Comment: Unab le to calculate this test result accurately. Results used to calculate this test are outside the reportable range. Performed By: #### C BC, MG, PHOS, GFR, CMP, ADIFF, DIFF, ANEU, MORPH #### [place] [address] Albumin Level 3.2 G/dL Normal 3.2-4.8 [facility] [place] ([place] Comment on above: Performed By: #### C BC, MG, PHOS, GFR, CMP, ADIFF, DIFF, ANEU, MORPH #### [place] [address] Albumin/Globulin [Mass ratio] 0.9 {ratio} Normal 0.9-1.6 [facility] [place] ([place] Comment on above: Performed By: #### C BC, MG, PHOS, GFR, CMP, ADIFF, DIFF, ANEU, MORPH #### [place] [address] ALP [Catalytic activity/Vol] 103 U/L Normal 38-126 [facility] [place] ([place] Comment on above: Performed By: #### C BC, MG, PHOS, GFR, CMP, ADIFF, DIFF, ANEU, MORPH #### [address] [address] ALT [Catalytic activity/Vol] 27 U/L Normal 10-49 [facility] [place] ([place] Comment on above: Performed By: #### C BC, MG, PHOS, GFR, CMP, ADIFF, DIFF, ANEU, MORPH #### [address] [address] AST [Catalytic activity/Vol] 26 U/L Normal 8-34 [facility] [place] ([place] Comment on above: Performed By: #### C BC, MG, PHOS, GFR, CMP, ADIFF, DIFF, ANEU, MORPH #### [address] [address] Bili Total 0.20 mg/dL Normal 0.20-1.20 [facility] [place] ([place] Comment on above: Result Comment: Use of this assay is not recommended for patients undergoing treatment with eltrombopag due to the potential for falsely elevated results. Performed By: #### C BC, MG, PHOS, GFR, CMP, ADIFF, DIFF, ANEU, MORPH #### [address] [address] BUN/Creatinine Ratio 29.4 ratio High 10.0-22.0 [facility] ([place]) Comment on above: Performed By: #### C BC, MG, PHOS, GFR, CMP, ADIFF, DIFF, ANEU, MORPH #### [address] [address] Calcium [Mass/Vol] 9.1 mg/dL Normal 8.7-10.4 [facility] ([place]) Comment on above: Performed By: #### C BC, MG, PHOS, GFR, CMP, ADIFF, DIFF, ANEU, MORPH #### [address] [address] Chloride [Moles/Vol] 93 mmol/L Low 98-110 [facility] ([place]) Comment on above: Performed By: #### C BC, MG, PHOS, GFR, CMP, ADIFF, DIFF, ANEU, MORPH #### [address] [address] Creatinine [Mass/Vol] 0.68 mg/dL Normal 0.50-1.20 [facility] ([place]) Comment on above: Performed By: #### C BC, MG, PHOS, GFR, CMP, ADIFF, DIFF, ANEU, MORPH #### [address] [address] Globulin 3.6 G/dL Normal 1.5-3.8 [facility] [place] ([place] Comment on above: Performed By: #### C BC, MG, PHOS, GFR, CMP, ADIFF, DIFF, ANEU, MORPH #### [address] [address] Glucose [Mass/Vol] 120 mg/dL High 82-115 [facility] ([place]) Comment on above: Performed By: #### C BC, MG, PHOS, GFR, CMP, ADIFF, DIFF, ANEU, MORPH #### [address] [address] Potassium [Moles/Vol] 3.5 mmol/L Normal 3.5-5.0 [facility] ([place]) Comment on above: Performed By: #### C BC, MG, PHOS, GFR, CMP, ADIFF, DIFF, ANEU, MORPH #### [address] [address] Sodium [Moles/Vol] 143 mmol/L Normal 136-145 [facility] ([place]) Comment on above: Performed By: #### C BC, MG, PHOS, GFR, CMP, ADIFF, DIFF, ANEU, MORPH #### [address] [address] Total Protein 6.8 G/dL Normal 5.7-8.2 [facility] [place] ([place]) Comment on above: Result Comment: No te - New Reference Range in effect 20 Performed By: #### C BC, MG, PHOS, GFR, CMP, ADIFF, DIFF, ANEU, MORPH #### [address] [address] Urea nitrogen [Mass/Vol] 20.0 mg/dL Normal 8.0-22.0 [facility] [place] ([place] Comment on above: Performed By: #### C BC, MG, PHOS, GFR, CMP, ADIFF, DIFF, ANEU, MORPH #### [address] [address] .Auto Diffon 11-04-2023 Basophil, Absolute 0.0 10 3/mcL Normal 0.0-0.3 [facility] ([place]) Comment on above: Performed By: #### C BC, MG, PHOS, GFR, CMP, ADIFF, DIFF, ANEU, MORPH #### [address] [address] Basophils/100 WBC (Bld) 0.5 % Normal 0.0-2.5 [facility] ([place]) Comment on above: Performed By: #### C BC, MG, PHOS, GFR, CMP, ADIFF, DIFF, ANEU, MORPH #### [address] [address] Eosinophil, Absolute 0.2 10 3/mcL Normal 0.0-0.7 [facility] ([place]) Comment on above: Performed By: #### C BC, MG, PHOS, GFR, CMP, ADIFF, DIFF, ANEU, MORPH #### [address] [address] Eosinophils/100 WBC (Bld) 3.1 % Normal 0.0-6.0 [facility] [place] ([place] Comment on above: Performed By: #### C BC, MG, PHOS, GFR, CMP, ADIFF, DIFF, ANEU, MORPH #### [address] [address] Lymphocyte, Absolute 1.4 10 3/mcL Normal 0.9-4.3 [facility] ([place]) Comment on above: Performed By: #### C BC, MG, PHOS, GFR, CMP, ADIFF, DIFF, ANEU, MORPH #### [address] [address] Lymphocytes/100 WBC (Bld) 21.1 % Normal 20.0-40.0 [facility] [place] ([place]) Comment on above: Performed By: #### C BC, MG, PHOS, GFR, CMP, ADIFF, DIFF, ANEU, MORPH #### [address] [address] Monocyte, Absolute 0.8 10 3/mcL Normal 0.1-1.4 [facility] ([place]) Comment on above: Performed By: #### C BC, MG, PHOS, GFR, CMP, ADIFF, DIFF, ANEU, MORPH #### [place] [address] Monocytes/100 WBC (Bld) 11.6 % Normal 2.0-13.0 [facility] ([place]) Comment on above: Performed By: #### C BC, MG, PHOS, GFR, CMP, ADIFF, DIFF, ANEU, MORPH #### [address] [address] Neutrophils/100 WBC (Bld) 63.7 % Normal 50.0-75.0 [facility] [place] ([place] Comment on above: Performed By: #### C BC, MG, PHOS, GFR, CMP, ADIFF, DIFF, ANEU, MORPH #### [address] [address] .NEUABSon 11-04-2023 Neutrophil, Absolute 4.1 10 3/mcL Normal 2.3-8.1 [facility] ([place]) Comment on above: Performed By: #### C BC, MG, PHOS, GFR, CMP, ADIFF, DIFF, ANEU, MORPH #### [address] [address] CBCon 11-04-2023 Erythrocyte distribution width (RBC) [Ratio] 15.3 % Normal 11.5-15.5 [facility] [place] ([place] Comment on above: Performed By: #### C BC, MG, PHOS, GFR, CMP, ADIFF, DIFF, ANEU, MORPH #### [place] [address] Hematocrit (Bld) [Volume fraction] 27.7 % Low 34.0-46.0 [facility] [place] ([place] Comment on above: Performed By: #### C BC, MG, PHOS, GFR, CMP, ADIFF, DIFF, ANEU, MORPH #### [place] [address] Hgb 8.9 G/dL Low 12.0-16.0 [facility] [place] ([place] Comment on above: Performed By: #### C BC, MG, PHOS, GFR, CMP, ADIFF, DIFF, ANEU, MORPH #### [place] [address] MCH (RBC) [Entitic mass] 30.0 pg Normal 27.0-33.0 [facility] [place] ([place] Comment on above: Performed By: #### C BC, MG, PHOS, GFR, CMP, ADIFF, DIFF, ANEU, MORPH #### [place] [address] MCHC 32.1 G/dL Normal 32.0-36.0 [facility] [place] ([place] Comment on above: Performed By: #### C BC, MG, PHOS, GFR, CMP, ADIFF, DIFF, ANEU, MORPH #### [place] [address] MCV (RBC) [Entitic vol] 93.3 fL Normal 80.0-99.0 [facility] ([place]) Comment on above: Performed By: #### C BC, MG, PHOS, GFR, CMP, ADIFF, DIFF, ANEU, MORPH #### [place] [address] Platelet 245 10 3/mcL Normal 150-450 [facility] [place] ([place] Comment on above: Performed By: #### C BC, MG, PHOS, GFR, CMP, ADIFF, DIFF, ANEU, MORPH #### [place] [address] Platelet mean volume (Bld) [Entitic vol] 8.2 fL Normal 6.6-10.5 [facility] [place] ([place] Comment on above: Performed By: #### C BC, MG, PHOS, GFR, CMP, ADIFF, DIFF, ANEU, MORPH #### [place] [address] RBC 2.97 10 6/mcL Low 4.10-5.30 [facility] [place] ([place] Comment on above: Performed By: #### C BC, MG, PHOS, GFR, CMP, ADIFF, DIFF, ANEU, MORPH #### [address] [address] WBC 6.5 10 3/mcL Normal 4.5-10.8 [facility] [place] ([place] Comment on above: Performed By: #### C BC, MG, PHOS, GFR, CMP, ADIFF, DIFF, ANEU, MORPH #### [address] [address] .Auto Diffon 11-01-2023 Basophil, Absolute 0.0 10 3/mcL Normal 0.0-0.3 [facility] ([place]) Comment on above: Performed By: #### C BC, MG, PHOS, GFR, CMP, ADIFF, DIFF, ANEU, MORPH #### [address] [address] Basophils/100 WBC (Bld) 0.5 % Normal 0.0-2.5 [facility] ([place]) Comment on above: Performed By: #### C BC, MG, PHOS, GFR, CMP, ADIFF, DIFF, ANEU, MORPH #### [address] [address] Eosinophil, Absolute 0.2 10 3/mcL Normal 0.0-0.7 [facility] ([place]) Comment on above: Performed By: #### C BC, MG, PHOS, GFR, CMP, ADIFF, DIFF, ANEU, MORPH #### [address] [address] Eosinophils/100 WBC (Bld) 1.8 % Normal 0.0-6.0 [facility] [place] ([place] Comment on above: Performed By: #### C BC, MG, PHOS, GFR, CMP, ADIFF, DIFF, ANEU, MORPH #### [address] [address] Lymphocyte, Absolute 1.9 10 3/mcL Normal 0.9-4.3 [facility] ([place]) Comment on above: Performed By: #### C BC, MG, PHOS, GFR, CMP, ADIFF, DIFF, ANEU, MORPH #### [address] [address] Lymphocytes/100 WBC (Bld) 21.1 % Normal 20.0-40.0 [facility] [place] ([place] Comment on above: Performed By: #### C BC, MG, PHOS, GFR, CMP, ADIFF, DIFF, ANEU, MORPH #### [address] [address] Monocyte, Absolute 0.8 10 3/mcL Normal 0.1-1.4 [facility] ([place] Comment on above: Performed By: #### C BC, MG, PHOS, GFR, CMP, ADIFF, DIFF, ANEU, MORPH #### [address] [address] Monocytes/100 WBC (Bld) 9.2 % Normal 2.0-13.0 [facility] ([place]) Comment on above: Performed By: #### C BC, MG, PHOS, GFR, CMP, ADIFF, DIFF, ANEU, MORPH #### [address] [address] Neutrophils/100 WBC (Bld) 67.4 % Normal 50.0-75.0 [facility] [place] ([place] Comment on above: Performed By: #### C BC, MG, PHOS, GFR, CMP, ADIFF, DIFF, ANEU, MORPH #### [address] [address] .GFRon 11-01-2023 GFR >60 Normal formerly [facility] ([place]) Comment on above: Result Comment: GFR Population mean for , Non- Americans Ages 20-29 = 116 mL/min/1.73 sq.m. Ages 30-39 = 107 mL/min/1.73 sq.m. Ages 40-49 = 99 mL/min/1.73 sq.m. Ages 50-59 = 93 mL/min/1.73 sq.m. Ages 60-69 = 85 mL/min/1.73 sq.m. Ages 70+ = 75 mL/min/1.73 sq.m. Chronic Kidney Disease: Less than 60 mL/min/1.73 square meters End Stage Renal Disease: Less than 15 mL/min/1.73 square meters Performed By: #### C BC, MG, PHOS, GFR, CMP, ADIFF, DIFF, ANEU, MORPH #### [address] [address] GFR Non- >60 Normal [facility] [place] ([place] Comment on above: Result Comment: GFR Population mean for , Non- Americans Ages 20-29 = 116 mL/min/1.73 sq.m. Ages 30-39 = 107 mL/min/1.73 sq.m. Ages 40-49 = 99 mL/min/1.73 sq.m. Ages 50-59 = 93 mL/min/1.73 sq.m. Ages 60-69 = 85 mL/min/1.73 sq.m. Ages 70+ = 75 mL/min/1.73 sq.m. Chronic Kidney Disease: Less than 60 mL/min/1.73 square meters End Stage Renal Disease: Less than 15 mL/min/1.73 square meters Performed By: #### C BC, MG, PHOS, GFR, CMP, ADIFF, DIFF, ANEU, MORPH #### [address] [address] .NEUABSon 11-01-2023 Neutrophil, Absolute 6.1 10 3/mcL Normal 2.3-8.1 [facility] ([place]) Comment on above: Performed By: #### C BC, MG, PHOS, GFR, CMP, ADIFF, DIFF, ANEU, MORPH #### [address] [address] BMPon 11-01-2023 CO2 [Moles/Vol] mmol/L Critically abnormal 22-32 [facility] [place] ([place] Comment on above: Performed By: #### C BC, MG, PHOS, GFR, CMP, ADIFF, DIFF, ANEU, MORPH #### [place] [address] Electrolyte Balance Unable to Calculate Normal 4.0-15. 0 [facility] [place] ([place] Comment on above: Result Comment: Unab le to calculate this test result accurately. Results used to calculate this test are outside the reportable range. Performed By: #### C BC, MG, PHOS, GFR, CMP, ADIFF, DIFF, ANEU, MORPH #### [address] [address] BUN/Creatinine Ratio 51.9 ratio High 10.0-22.0 [facility] ([place] Comment on above: Performed By: #### C BC, MG, PHOS, GFR, CMP, ADIFF, DIFF, ANEU, MORPH #### [address] [address] Calcium [Mass/Vol] 9.6 mg/dL Normal 8.7-10.4 [facility] ([place]) Comment on above: Performed By: #### C BC, MG, PHOS, GFR, CMP, ADIFF, DIFF, ANEU, MORPH #### [place] [id number] Chloride [Moles/Vol] 97 mmol/L Low 98-110 [facility] ([place] Comment on above: Performed By: #### C BC, MG, PHOS, GFR, CMP, ADIFF, DIFF, ANEU, MORPH #### [address] [address] Creatinine [Mass/Vol] 0.54 mg/dL Normal 0.50-1.20 [facility] ([place]) Comment on above: Performed By: #### C BC, MG, PHOS, GFR, CMP, ADIFF, DIFF, ANEU, MORPH #### [address] [address] Glucose [Mass/Vol] 112 mg/dL Normal 82-115 [facility] ([place]) Comment on above: Performed By: #### C BC, MG, PHOS, GFR, CMP, ADIFF, DIFF, ANEU, MORPH #### [address] [address] Potassium [Moles/Vol] 4.0 mmol/L Normal 3.5-5.0 [facility] ([place]) Comment on above: Performed By: #### C BC, MG, PHOS, GFR, CMP, ADIFF, DIFF, ANEU, MORPH #### [place] [address] Sodium [Moles/Vol] 143 mmol/L Normal 136-145 [facility] ([place]) Comment on above: Performed By: #### C BC, MG, PHOS, GFR, CMP, ADIFF, DIFF, ANEU, MORPH #### [place] [address] Urea nitrogen [Mass/Vol] 28.0 mg/dL High 8.0-22.0 [facility] [place] ([place] Comment on above: Performed By: #### C BC, MG, PHOS, GFR, CMP, ADIFF, DIFF, ANEU, MORPH #### [place] [id number] CBCon 11-01-2023 Erythrocyte distribution width (RBC) [Ratio] 15.3 % Normal 11.5-15.5 [facility] [place] ([place] Comment on above: Performed By: #### C BC, MG, PHOS, GFR, CMP, ADIFF, DIFF, ANEU, MORPH #### [place] [address] Hematocrit (Bld) [Volume fraction] 25.3 % Low 34.0-46.0 [facility] [place] ([place] Comment on above: Performed By: #### C BC, MG, PHOS, GFR, CMP, ADIFF, DIFF, ANEU, MORPH #### [place] [address] Hgb 8.1 G/dL Low 12.0-16.0 [facility] [place] ([place] Comment on above: Performed By: #### C BC, MG, PHOS, GFR, CMP, ADIFF, DIFF, ANEU, MORPH #### [place] [address] MCH (RBC) [Entitic mass] 29.9 pg Normal 27.0-33.0 [facility] [place] ([place] Comment on above: Performed By: #### C BC, MG, PHOS, GFR, CMP, ADIFF, DIFF, ANEU, MORPH #### [place] [id number] MCHC 32.0 G/dL Normal 32.0-36.0 [facility] [place] ([place] Comment on above: Performed By: #### C BC, MG, PHOS, GFR, CMP, ADIFF, DIFF, ANEU, MORPH #### [address] [address] MCV (RBC) [Entitic vol] 93.5 fL Normal 80.0-99.0 [facility] ([place]) Comment on above: Performed By: #### C BC, MG, PHOS, GFR, CMP, ADIFF, DIFF, ANEU, MORPH #### [place] [address] Platelet 218 10 3/mcL Normal 150-450 [facility] [place] ([place] Comment on above: Performed By: #### C BC, MG, PHOS, GFR, CMP, ADIFF, DIFF, ANEU, MORPH #### [place] [address] Platelet mean volume (Bld) [Entitic vol] 8.3 fL Normal 6.6-10.5 [facility] [place] ([place] Comment on above: Performed By: #### C BC, MG, PHOS, GFR, CMP, ADIFF, DIFF, ANEU, MORPH #### [place] [address] RBC 2.71 10 6/mcL Low 4.10-5.30 [facility] [place] ([place] Comment on above: Performed By: #### C BC, MG, PHOS, GFR, CMP, ADIFF, DIFF, ANEU, MORPH #### [place] [id number] WBC 9.1 10 3/mcL Normal 4.5-10.8 [facility] [place] ([place] Comment on above: Performed By: #### C BC, MG, PHOS, GFR, CMP, ADIFF, DIFF, ANEU, MORPH #### [place] [id number] MGon 11-01-2023 Magnesium [Mass/Vol] 2.2 mg/dL Normal 1.6-2.4 [facility] ([place]) Comment on above: Performed By: #### C BC, MG, PHOS, GFR, CMP, ADIFF, DIFF, ANEU, MORPH #### [place] [address] HHon 10-31-2023 Hematocrit (Bld) [Volume fraction] 25.5 % Low 34.0-46.0 [facility] [place] ([place] Comment on above: Performed By: #### C BC, MG, PHOS, GFR, CMP, ADIFF, DIFF, ANEU, MORPH #### [place] [address] Hgb 8.2 G/dL Low 12.0-16.0 [facility] [place] ([place] Comment on above: Performed By: #### C BC, MG, PHOS, GFR, CMP, ADIFF, DIFF, ANEU, MORPH #### [place] [address] .Manual Diffon 10-28-2023 Basophil %, Manual 0.0 % Normal 0.0-2.5 [facility] ([place]) Comment on above: Performed By: #### C BC, MG, PHOS, GFR, CMP, ADIFF, DIFF, ANEU, MORPH #### [place] [address] Basophil, Abs Manual 0.0 10 3/mcL Normal 0.0-0.3 [facility] ([place]) Comment on above: Performed By: #### C BC, MG, PHOS, GFR, CMP, ADIFF, DIFF, ANEU, MORPH #### [place] [address] Eosinophil %, Manual 0.0 % Normal 0.0-6.0 [facility] ([place] Comment on above: Performed By: #### C BC, MG, PHOS, GFR, CMP, ADIFF, DIFF, ANEU, MORPH #### [place] [id number] Eosinophil, Abs Manual 0.0 10 3/mcL Normal 0.0-0.7 [facility] [place] ([place] Comment on above: Performed By: #### C BC, MG, PHOS, GFR, CMP, ADIFF, DIFF, ANEU, MORPH #### [place] [address] Lymphocyte %, Manual 13.0 % Low 20.0-40.0 [facility] ([place] Comment on above: Performed By: #### C BC, MG, PHOS, GFR, CMP, ADIFF, DIFF, ANEU, MORPH #### [address] [address] Lymphocyte, Abs Manual 1.1 10 3/mcL Normal 0.9-4.3 [facility] [place] ([place] Comment on above: Performed By: #### C BC, MG, PHOS, GFR, CMP, ADIFF, DIFF, ANEU, MORPH #### [address] [address] Monocyte %, Manual 2.0 % Normal 2.0-13.0 [facility] ([place]) Comment on above: Performed By: #### C BC, MG, PHOS, GFR, CMP, ADIFF, DIFF, ANEU, MORPH #### [address] [address] Monocyte, Abs Manual 0.2 10 3/mcL Normal 0.1-1.4 [facility] ([place]) Comment on above: Performed By: #### C BC, MG, PHOS, GFR, CMP, ADIFF, DIFF, ANEU, MORPH #### [address] [address] Neutrophil %, Manual 85.0 % High 50.0-75.0 [facility] ([place] Comment on above: Performed By: #### C BC, MG, PHOS, GFR, CMP, ADIFF, DIFF, ANEU, MORPH #### [address] [address] Neutrophil, Abs Manual 7.2 10 3/mcL Normal 2.3-8.1 [facility] [place] ([place] Comment on above: Performed By: #### C BC, MG, PHOS, GFR, CMP, ADIFF, DIFF, ANEU, MORPH #### [address] [address] Nucleated RBC 0.0 /100 WBC Normal [facility] [place] ([place] Comment on above: Performed By: #### C BC, MG, PHOS, GFR, CMP, ADIFF, DIFF, ANEU, MORPH #### [address] [address] .Morphon 10-28-2023 Anisocytosis Ql (Bld) 1+ Normal [facility] ([place]) Comment on above: Performed By: #### C BC, MG, PHOS, GFR, CMP, ADIFF, DIFF, ANEU, MORPH #### [place] [address] Hypochrom 1+ Normal [facility] [place] ([place] Comment on above: Performed By: #### C BC, MG, PHOS, GFR, CMP, ADIFF, DIFF, ANEU, MORPH #### [place] [address] Platelet Estimate Normal Normal [facility] [place] ([place] Comment on above: Performed By: #### C BC, MG, PHOS, GFR, CMP, ADIFF, DIFF, ANEU, MORPH #### [place] [address] Poik 1+ Normal [facility] [place] ([place] Comment on above: Performed By: #### C BC, MG, PHOS, GFR, CMP, ADIFF, DIFF, ANEU, MORPH #### [place] [address] Stomatocytes 2+ Normal [facility] [place] ([place] Comment on above: Performed By: #### C BC, MG, PHOS, GFR, CMP, ADIFF, DIFF, ANEU, MORPH #### [place] [address] ABO/Rh (Gel)on 10-28-2023 ABO/Rh Interp Positive Invalid Interpretation Code [facility] [place] ([place] Comment on above: Performed By: #### C BC, MG, PHOS, GFR, CMP, ADIFF, DIFF, ANEU, MORPH #### [place] [address] ABS (Gel)on 10-28-2023 ABSC Interp (Gel) Negative Normal [facility] [place] ([place] Comment on above: Performed By: #### C BC, MG, PHOS, GFR, CMP, ADIFF, DIFF, ANEU, MORPH #### [place] [id number] CBCon 10-28-2023 Erythrocyte distribution width (RBC) [Ratio] 15.4 % Normal 11.5-15.5 [facility] [place] ([place] Comment on above: Performed By: #### C BC, MG, PHOS, GFR, CMP, ADIFF, DIFF, ANEU, MORPH #### [place] [address] Hematocrit (Bld) [Volume fraction] 21.3 % Low 34.0-46.0 [facility] [place] ([place] Comment on above: Performed By: #### C BC, MG, PHOS, GFR, CMP, ADIFF, DIFF, ANEU, MORPH #### [place] [address] Hgb 6.7 G/dL Critically abnormal 12.0-16.0 [facility] [place] ([place] Comment on above: Performed By: #### C BC, MG, PHOS, GFR, CMP, ADIFF, DIFF, ANEU, MORPH #### [place] [address] MCH (RBC) [Entitic mass] 29.4 pg Normal 27.0-33.0 [facility] [place] ([place] Comment on above: Performed By: #### C BC, MG, PHOS, GFR, CMP, ADIFF, DIFF, ANEU, MORPH #### [place] [address] MCHC 31.6 G/dL Low 32.0-36.0 [facility] [place] ([place] Comment on above: Performed By: #### C BC, MG, PHOS, GFR, CMP, ADIFF, DIFF, ANEU, MORPH #### [place] [address] MCV (RBC) [Entitic vol] 93.0 fL Normal 80.0-99.0 [facility] ([place]) Comment on above: Performed By: #### C BC, MG, PHOS, GFR, CMP, ADIFF, DIFF, ANEU, MORPH #### [place] [address] Platelet 177 10 3/mcL Normal 150-450 [facility] [place] ([place] Comment on above: Performed By: #### C BC, MG, PHOS, GFR, CMP, ADIFF, DIFF, ANEU, MORPH #### [place] [address] Platelet mean volume (Bld) [Entitic vol] 7.7 fL Normal 6.6-10.5 [facility] [place] ([place] Comment on above: Performed By: #### C BC, MG, PHOS, GFR, CMP, ADIFF, DIFF, ANEU, MORPH #### [place] [address] RBC 2.29 10 6/mcL Low 4.10-5.30 [facility] [place] ([place] Comment on above: Performed By: #### C BC, MG, PHOS, GFR, CMP, ADIFF, DIFF, ANEU, MORPH #### [place] [address] WBC 8.5 10 3/mcL Normal 4.5-10.8 [facility] [place] ([place] Comment on above: Performed By: #### C BC, MG, PHOS, GFR, CMP, ADIFF, DIFF, ANEU, MORPH #### [place] [id number] PROon 10-28-2023 INR Coag (PPP) [Relative time] 1.1 {INR} Normal [facility] ([place]) Comment on above: Result Comment: [employer] (CHEST, 1992, [id number]) recommended therapeutic range for oral anticoagulant therapy is: LOW RISK: Prophylaxis of venous thrombosis INR: 2.0-3.0 Treatment of pulmonary embolism 2.0-3.0 Prevention of systemic embolism 2.0-3.0 HIGH RISK: Mechanical prosthetic valves 2.5-3.5 Performed By: #### C BC, MG, PHOS, GFR, CMP, ADIFF, DIFF, ANEU, MORPH #### [place] [id number] PT Coag (PPP) [Time] 12.2 s Normal 9.0-14.2 formerly [facility] ([place]) Comment on above: Result Comment: Effe ctive 01/17/08, Protime results may be affected by some antibiotics (i.e. Ciprofloxacin, Azithromycin, Bactrim) which may potentiate the action of oral anticoagulants, with further increases in Protime/INR. Performed By: #### C BC, MG, PHOS, GFR, CMP, ADIFF, DIFF, ANEU, MORPH #### [address] [id number] RBC (Product)on 10-28-2023 RBC Product Ready RBC Ready for Pickup Normal [facility] ([place]) Comment on above: Performed By: #### C BC, MG, PHOS, GFR, CMP, ADIFF, DIFF, ANEU, MORPH #### [place] [id number] RBC Product Ready RBC Ready for Pickup Normal [facility] ([place]) Comment on above: Performed By: #### C BC, MG, PHOS, GFR, CMP, ADIFF, DIFF, ANEU, MORPH #### [place] [id number] PROon 10-27-2023 INR Coag (PPP) [Relative time] 1.1 {INR} Normal [facility] ([place]) Comment on above: Result Comment: [employer] (CHEST, 1992, [id number]) recommended therapeutic range for oral anticoagulant therapy is: LOW RISK: Prophylaxis of venous thrombosis INR: 2.0-3.0 Treatment of pulmonary embolism 2.0-3.0 Prevention of systemic embolism 2.0-3.0 HIGH RISK: Mechanical prosthetic valves 2.5-3.5 Performed By: #### C BC, MG, PHOS, GFR, CMP, ADIFF, DIFF, ANEU, MORPH #### [place] [id number] PT Coag (PPP) [Time] 12.2 s Normal 9.0-14.2 formerly [facility] ([place]) Comment on above: Result Comment: Effe ctive 01/17/08, Protime results may be affected by some antibiotics (i.e. Ciprofloxacin, Azithromycin, Bactrim) which may potentiate the action of oral anticoagulants, with further increases in Protime/INR. Performed By: #### C BC, MG, PHOS, GFR, CMP, ADIFF, DIFF, ANEU, MORPH #### [address] [address] PROon 10-26-2023 INR Coag (PPP) [Relative time] 1.1 {INR} Normal [facility] ([place]) Comment on above: Result Comment: [employer] (CHEST, 1991, 102:312S-25S) recommended therapeutic range for oral anticoagulant therapy is: LOW RISK: Prophylaxis of venous thrombosis INR: 2.0-3.0 Treatment of pulmonary embolism 2.0-3.0 Prevention of systemic embolism 2.0-3.0 HIGH RISK: Mechanical prosthetic valves 2.5-3.5 Performed By: #### C BC, MG, PHOS, GFR, CMP, ADIFF, DIFF, ANEU, MORPH #### [address] [address] PT Coag (PPP) [Time] 12.3 s Normal 9.0-14.2 formerly [facility] ([place]) Comment on above: Result Comment: Effe ctive 01/17/08, Protime results may be affected by some antibiotics (i.e. Ciprofloxacin, Azithromycin, Bactrim) which may potentiate the action of oral anticoagulants, with further increases in Protime/INR. Performed By: #### C BC, MG, PHOS, GFR, CMP, ADIFF, DIFF, ANEU, MORPH #### [address] [address] .Auto Diffon 10-25-2023 Basophil, Absolute 0.0 10 3/mcL Normal 0.0-0.3 formerly [facility] ([place]) Comment on above: Performed By: #### C BC, MG, PHOS, GFR, CMP, ADIFF, DIFF, ANEU, MORPH #### [address] [address] Basophils/100 WBC (Bld) 0.4 % Normal 0.0-2.5 A [facility] ([place]) Comment on above: Performed By: #### C BC, MG, PHOS, GFR, CMP, ADIFF, DIFF, ANEU, MORPH #### [address] [address] Eosinophil, Absolute 0.2 10 3/mcL Normal 0.0-0.7 [facility] ([place]) Comment on above: Performed By: #### C BC, MG, PHOS, GFR, CMP, ADIFF, DIFF, ANEU, MORPH #### [address] [address] Eosinophils/100 WBC (Bld) 2.0 % Normal 0.0-6.0 [facility] ([place]) Comment on above: Performed By: #### C BC, MG, PHOS, GFR, CMP, ADIFF, DIFF, ANEU, MORPH #### [address] [address] Lymphocyte, Absolute 1.6 10 3/mcL Normal 0.9-4.3 [facility] ([place]) Comment on above: Performed By: #### C BC, MG, PHOS, GFR, CMP, ADIFF, DIFF, ANEU, MORPH #### [address] [address] Lymphocytes/100 WBC (Bld) 18.6 % Low 20.0-40.0 [facility] ([place]) Comment on above: Performed By: #### C BC, MG, PHOS, GFR, CMP, ADIFF, DIFF, ANEU, MORPH #### [address] [address] Monocyte, Absolute 0.7 10 3/mcL Normal 0.1-1.4 formerly [facility] ([place]) Comment on above: Performed By: #### C BC, MG, PHOS, GFR, CMP, ADIFF, DIFF, ANEU, MORPH #### [address] [address] Monocytes/100 WBC (Bld) 8.0 % Normal 2.0-13.0 [facility] ([place]) Comment on above: Performed By: #### C BC, MG, PHOS, GFR, CMP, ADIFF, DIFF, ANEU, MORPH #### [address] [address] Neutrophils/100 WBC (Bld) 71.0 % Normal 50.0-75.0 [facility] ([place]) Comment on above: Performed By: #### C BC, MG, PHOS, GFR, CMP, ADIFF, DIFF, ANEU, MORPH #### [address] [address] .GFRon 10-25-2023 GFR >60 Normal formerly [facility] ([place]) Comment on above: Result Comment: GFR Population mean for , Non- Americans Ages 20-29 = 116 mL/min/1.73 sq.m. Ages 30-39 = 107 mL/min/1.73 sq.m. Ages 40-49 = 99 mL/min/1.73 sq.m. Ages 50-59 = 93 mL/min/1.73 sq.m. Ages 60-69 = 85 mL/min/1.73 sq.m. Ages 70+ = 75 mL/min/1.73 sq.m. Chronic Kidney Disease: Less than 60 mL/min/1.73 square meters End Stage Renal Disease: Less than 15 mL/min/1.73 square meters Performed By: #### C BC, MG, PHOS, GFR, CMP, ADIFF, DIFF, ANEU, MORPH #### [place] [id number] GFR Non- >60 Normal [facility] ([place]) Comment on above: Result Comment: GFR Population mean for , Non- Americans Ages 20-29 = 116 mL/min/1.73 sq.m. Ages 30-39 = 107 mL/min/1.73 sq.m. Ages 40-49 = 99 mL/min/1.73 sq.m. Ages 50-59 = 93 mL/min/1.73 sq.m. Ages 60-69 = 85 mL/min/1.73 sq.m. Ages 70+ = 75 mL/min/1.73 sq.m. Chronic Kidney Disease: Less than 60 mL/min/1.73 square meters End Stage Renal Disease: Less than 15 mL/min/1.73 square meters Performed By: #### C BC, MG, PHOS, GFR, CMP, ADIFF, DIFF, ANEU, MORPH #### [address] [address] .Manual Diffon 10-25-2023 Bands 4.0 % Normal 0.0-5.0 [facility] ([place]) Comment on above: Performed By: #### C BC, MG, PHOS, GFR, CMP, ADIFF, DIFF, ANEU, MORPH #### [address] [address] Basophil %, Manual 0.0 % Normal 0.0-2.5 [facility] ([place]) Comment on above: Performed By: #### C BC, MG, PHOS, GFR, CMP, ADIFF, DIFF, ANEU, MORPH #### [address] [address] Basophil, Abs Manual 0.0 10 3/mcL Normal 0.0-0.3 [facility] ([place]) Comment on above: Performed By: #### C BC, MG, PHOS, GFR, CMP, ADIFF, DIFF, ANEU, MORPH #### [address] [address] Eosinophil %, Manual 1.0 % Normal 0.0-6.0 [facility] ([place]) Comment on above: Performed By: #### C BC, MG, PHOS, GFR, CMP, ADIFF, DIFF, ANEU, MORPH #### [address] [address] Eosinophil, Abs Manual 0.1 10 3/mcL Normal 0.0-0.7 [facility] ([place]) Comment on above: Performed By: #### C BC, MG, PHOS, GFR, CMP, ADIFF, DIFF, ANEU, MORPH #### [address] [address] Lymphocyte %, Manual 15.0 % Low 20.0-40.0 formerly [facility] ([place]) Comment on above: Performed By: #### C BC, MG, PHOS, GFR, CMP, ADIFF, DIFF, ANEU, MORPH #### [address] [address] Lymphocyte, Abs Manual 1.3 10 3/mcL Normal 0.9-4.3 [facility] ([place]) Comment on above: Performed By: #### C BC, MG, PHOS, GFR, CMP, ADIFF, DIFF, ANEU, MORPH #### [address] [address] Metamyelocyte 5.0 % Normal [facility] ([place]) Comment on above: Performed By: #### C BC, MG, PHOS, GFR, CMP, ADIFF, DIFF, ANEU, MORPH #### [address] [address] Monocyte %, Manual 2.0 % Normal 2.0-13.0 [facility] ([place]) Comment on above: Performed By: #### C BC, MG, PHOS, GFR, CMP, ADIFF, DIFF, ANEU, MORPH #### [address] [address] Monocyte, Abs Manual 0.2 10 3/mcL Normal 0.1-1.4 [facility] ([place]) Comment on above: Performed By: #### C BC, MG, PHOS, GFR, CMP, ADIFF, DIFF, ANEU, MORPH #### [address] [address] Neutrophil %, Manual 73.0 % Normal 50.0-75.0 [facility] ([place]) Comment on above: Performed By: #### C BC, MG, PHOS, GFR, CMP, ADIFF, DIFF, ANEU, MORPH #### [address] [address] Neutrophil, Abs Manual 6.4 10 3/mcL Normal 2.3-8.1 [facility] ([place]) Comment on above: Performed By: #### C BC, MG, PHOS, GFR, CMP, ADIFF, DIFF, ANEU, MORPH #### [place] [address] Nucleated RBC 0.0 /100 WBC Normal [facility] ([place]) Comment on above: Performed By: #### C BC, MG, PHOS, GFR, CMP, ADIFF, DIFF, ANEU, MORPH #### [address] [address] .Morphon 10-25-2023 Platelet Estimate Normal Normal [facility] ([place]) Comment on above: Performed By: #### C BC, MG, PHOS, GFR, CMP, ADIFF, DIFF, ANEU, MORPH #### [place] [address] RBC morphology finding Nom (Bld) See Below Normal [facility] ([place]) Comment on above: Result Comment: RBC Morphology appears Normal Performed By: #### C BC, MG, PHOS, GFR, CMP, ADIFF, DIFF, ANEU, MORPH #### [place] [address] .NEUABSon 10-25-2023 Neutrophil, Absolute 6.3 10 3/mcL Normal 2.3-8.1 [facility] ([place]) Comment on above: Performed By: #### C BC, MG, PHOS, GFR, CMP, ADIFF, DIFF, ANEU, MORPH #### [place] [address] CBCon 10-25-2023 Erythrocyte distribution width (RBC) [Ratio] 15.0 % Normal 11.5-15.5 [facility] ([place]) Comment on above: Performed By: #### C BC, MG, PHOS, GFR, CMP, ADIFF, DIFF, ANEU, MORPH #### [place] [address] Hematocrit (Bld) [Volume fraction] 23.6 % Low 34.0-46.0 [facility] ([place]) Comment on above: Performed By: #### C BC, MG, PHOS, GFR, CMP, ADIFF, DIFF, ANEU, MORPH #### [place] [address] Hgb 7.5 G/dL Low 12.0-16.0 [facility] ([place]) Comment on above: Performed By: #### C BC, MG, PHOS, GFR, CMP, ADIFF, DIFF, ANEU, MORPH #### [place] [address] MCH (RBC) [Entitic mass] 29.3 pg Normal 27.0-33.0 [facility] ([place]) Comment on above: Performed By: #### C BC, MG, PHOS, GFR, CMP, ADIFF, DIFF, ANEU, MORPH #### [place] [address] MCHC 31.6 G/dL Low 32.0-36.0 [facility] ([place]) Comment on above: Performed By: #### C BC, MG, PHOS, GFR, CMP, ADIFF, DIFF, ANEU, MORPH #### [place] [address] MCV (RBC) [Entitic vol] 92.7 fL Normal 80.0-99.0 A [facility] ([place]) Comment on above: Performed By: #### C BC, MG, PHOS, GFR, CMP, ADIFF, DIFF, ANEU, MORPH #### [place] [address] Platelet 188 10 3/mcL Normal 150-450 [facility] ([place]) Comment on above: Performed By: #### C BC, MG, PHOS, GFR, CMP, ADIFF, DIFF, ANEU, MORPH #### [place] [address] Platelet mean volume (Bld) [Entitic vol] 7.7 fL Normal 6.6-10.5 [facility] ([place]) Comment on above: Performed By: #### C BC, MG, PHOS, GFR, CMP, ADIFF, DIFF, ANEU, MORPH #### [place] [address] RBC 2.55 10 6/mcL Low 4.10-5.30 [facility] ([place]) Comment on above: Performed By: #### C BC, MG, PHOS, GFR, CMP, ADIFF, DIFF, ANEU, MORPH #### [place] [address] WBC 8.8 10 3/mcL Normal 4.5-10.8 [facility] ([place]) Comment on above: Performed By: #### C BC, MG, PHOS, GFR, CMP, ADIFF, DIFF, ANEU, MORPH #### [place] [address] CMPon 10-25-2023 CO2 [Moles/Vol] mmol/L Critically abnormal - [facility] ([place]) Comment on above: Performed By: #### C BC, MG, PHOS, GFR, CMP, ADIFF, DIFF, ANEU, MORPH #### [place] [address] Electrolyte Balance Unable to Calculate Normal 4.0-15. 0 [facility] ([place]) Comment on above: Result Comment: Unab le to calculate this test result accurately. Results used to calculate this test are outside the reportable range. Performed By: #### C BC, MG, PHOS, GFR, CMP, ADIFF, DIFF, ANEU, MORPH #### [place] [address] Albumin Level 3.2 G/dL Normal 3.2-4.8 [facility] ([place]) Comment on above: Performed By: #### C BC, MG, PHOS, GFR, CMP, ADIFF, DIFF, ANEU, MORPH #### [place] [address] Albumin/Globulin [Mass ratio] 0.9 {ratio} Normal 0.9-1.6 [facility] ([place]) Comment on above: Performed By: #### C BC, MG, PHOS, GFR, CMP, ADIFF, DIFF, ANEU, MORPH #### [place] [address] ALP [Catalytic activity/Vol] 114 U/L Normal 38-126 [facility] ([place]) Comment on above: Performed By: #### C BC, MG, PHOS, GFR, CMP, ADIFF, DIFF, ANEU, MORPH #### [place] [id number] ALT [Catalytic activity/Vol] 14 U/L Normal 10-49 [facility] ([place]) Comment on above: Performed By: #### C BC, MG, PHOS, GFR, CMP, ADIFF, DIFF, ANEU, MORPH #### [place] [id number] AST [Catalytic activity/Vol] 14 U/L Normal 8-34 [facility] ([place]) Comment on above: Performed By: #### C BC, MG, PHOS, GFR, CMP, ADIFF, DIFF, ANEU, MORPH #### [place] [id number] Bili Total 0.20 mg/dL Normal 0.20-1.20 [facility] ([place]) Comment on above: Result Comment: Use of this assay is not recommended for patients undergoing treatment with eltrombopag due to the potential for falsely elevated results. Performed By: #### C BC, MG, PHOS, GFR, CMP, ADIFF, DIFF, ANEU, MORPH #### [place] [id number] BUN/Creatinine Ratio 46.3 ratio High 10.0-22.0 [facility] ([place]) Comment on above: Performed By: #### C BC, MG, PHOS, GFR, CMP, ADIFF, DIFF, ANEU, MORPH #### [place] [address] Calcium [Mass/Vol] 9.3 mg/dL Normal 8.7-10.4 [facility] ([place]) Comment on above: Performed By: #### C BC, MG, PHOS, GFR, CMP, ADIFF, DIFF, ANEU, MORPH #### [place] [address] Chloride [Moles/Vol] 96 mmol/L Low 98-110 [facility] ([place]) Comment on above: Performed By: #### C BC, MG, PHOS, GFR, CMP, ADIFF, DIFF, ANEU, MORPH #### [place] [address] Creatinine [Mass/Vol] 0.54 mg/dL Normal 0.50-1.20 [facility] ([place]) Comment on above: Performed By: #### C BC, MG, PHOS, GFR, CMP, ADIFF, DIFF, ANEU, MORPH #### [place] [id number] Globulin 3.4 G/dL Normal 1.5-3.8 [facility] ([place]) Comment on above: Performed By: #### C BC, MG, PHOS, GFR, CMP, ADIFF, DIFF, ANEU, MORPH #### [place] [id number] Glucose [Mass/Vol] 114 mg/dL Normal 82-115 [facility] ([place]) Comment on above: Performed By: #### C BC, MG, PHOS, GFR, CMP, ADIFF, DIFF, ANEU, MORPH #### [address] [address] Potassium [Moles/Vol] 3.8 mmol/L Normal 3.5-5.0 [facility] ([place]) Comment on above: Performed By: #### C BC, MG, PHOS, GFR, CMP, ADIFF, DIFF, ANEU, MORPH #### [address] [address] Sodium [Moles/Vol] 145 mmol/L Normal 136-145 [facility] ([place]) Comment on above: Performed By: #### C BC, MG, PHOS, GFR, CMP, ADIFF, DIFF, ANEU, MORPH #### [address] [address] Total Protein 6.6 G/dL Normal 5.7-8.2 [facility] ([place]) Comment on above: Result Comment: No te - New Reference Range in effect 20 Performed By: #### C BC, MG, PHOS, GFR, CMP, ADIFF, DIFF, ANEU, MORPH #### [address] [address] Urea nitrogen [Mass/Vol] 25.0 mg/dL High 8.0-22.0 [facility] ([place]) Comment on above: Performed By: #### C BC, MG, PHOS, GFR, CMP, ADIFF, DIFF, ANEU, MORPH #### [address] [address] MGon 10-25-2023 Magnesium [Mass/Vol] 2.4 mg/dL Normal 1.6-2.4 [facility] ([place]) Comment on above: Performed By: #### C BC, MG, PHOS, GFR, CMP, ADIFF, DIFF, ANEU, MORPH #### [address] [address] PHOSon 10-25-2023 Phosphate [Mass/Vol] 4.0 mg/dL Normal 2.4-5.1 [facility] ([place]) Comment on above: Result Comment: No te - New Reference Range in effect 20 Performed By: #### C BC, MG, PHOS, GFR, CMP, ADIFF, DIFF, ANEU, MORPH #### [address] [address] PRO 10-24-2023 INR Coag (PPP) [Relative time] 1.1 {INR} Normal [facility] ([place]) Comment on above: Result Comment: [employer] (CHEST, 1991, 102:312S-25S) recommended therapeutic range for oral anticoagulant therapy is: LOW RISK: Prophylaxis of venous thrombosis INR: 2.0-3.0 Treatment of pulmonary embolism 2.0-3.0 Prevention of systemic embolism 2.0-3.0 HIGH RISK: Mechanical prosthetic valves 2.5-3.5 Performed By: #### C BC, MG, PHOS, GFR, CMP, ADIFF, DIFF, ANEU, MORPH #### [address] [address] PT Coag (PPP) [Time] 12.3 s Normal 9.0-14.2 [facility] ([place]) Comment on above: Result Comment: Effe ctive 01/17/08, Protime results may be affected by some antibiotics (i.e. Ciprofloxacin, Azithromycin, Bactrim) which may potentiate the action of oral anticoagulants, with further increases in Protime/INR. Performed By: #### C BC, MG, PHOS, GFR, CMP, ADIFF, DIFF, ANEU, MORPH #### [address] [address] PRO 10-23-2023 INR Coag (PPP) [Relative time] 1.0 {INR} Normal [facility] ([place]) Comment on above: Result Comment: [employer] (CHEST, 1991, 102:312S-25S) recommended therapeutic range for oral anticoagulant therapy is: LOW RISK: Prophylaxis of venous thrombosis INR: 2.0-3.0 Treatment of pulmonary embolism 2.0-3.0 Prevention of systemic embolism 2.0-3.0 HIGH RISK: Mechanical prosthetic valves 2.5-3.5 Performed By: #### C BC, MG, PHOS, GFR, CMP, ADIFF, DIFF, ANEU, MORPH #### [address] [address] PT Coag (PPP) [Time] 11.7 s Normal 9.0-14.2 [facility] ([place]) Comment on above: Result Comment: Effe ctive 01/17/08, Protime results may be affected by some antibiotics (i.e. Ciprofloxacin, Azithromycin, Bactrim) which may potentiate the action of oral anticoagulants, with further increases in Protime/INR. Performed By: #### C BC, MG, PHOS, GFR, CMP, ADIFF, DIFF, ANEU, MORPH #### [address] [address] PROon 10-22-2023 INR Coag (PPP) [Relative time] 1.0 {INR} Normal [facility] ([place]) Comment on above: Result Comment: [employer] (CHEST, 1992, 102:312S-25S) recommended therapeutic range for oral anticoagulant therapy is: LOW RISK: Prophylaxis of venous thrombosis INR: 2.0-3.0 Treatment of pulmonary embolism 2.0-3.0 Prevention of systemic embolism 2.0-3.0 HIGH RISK: Mechanical prosthetic valves 2.5-3.5 Performed By: #### C BC, MG, PHOS, GFR, CMP, ADIFF, DIFF, ANEU, MORPH #### [address] [address] PT Coag (PPP) [Time] 11.4 s Normal 9.0-14.2 [facility] ([place]) Comment on above: Result Comment: Effe ctive 01/17/08, Protime results may be affected by some antibiotics (i.e. Ciprofloxacin, Azithromycin, Bactrim) which may potentiate the action of oral anticoagulants, with further increases in Protime/INR. Performed By: #### C BC, MG, PHOS, GFR, CMP, ADIFF, DIFF, ANEU, MORPH #### [address] [address] .Auto Diffon 10-21-2023 Basophil, Absolute 0.0 10 3/mcL Normal 0.0-0.3 [facility] ([place]) Comment on above: Performed By: #### C BC, MG, PHOS, GFR, CMP, ADIFF, DIFF, ANEU, MORPH #### [address] [address] Basophils/100 WBC (Bld) 0.5 % Normal 0.0-2.5 A [facility] ([place]) Comment on above: Performed By: #### C BC, MG, PHOS, GFR, CMP, ADIFF, DIFF, ANEU, MORPH #### [address] [address] Eosinophil, Absolute 0.1 10 3/mcL Normal 0.0-0.7 [facility] ([place]) Comment on above: Performed By: #### C BC, MG, PHOS, GFR, CMP, ADIFF, DIFF, ANEU, MORPH #### [address] [address] Eosinophils/100 WBC (Bld) 1.7 % Normal 0.0-6.0 [facility] ([place]) Comment on above: Performed By: #### C BC, MG, PHOS, GFR, CMP, ADIFF, DIFF, ANEU, MORPH #### [address] [address] Lymphocyte, Absolute 1.4 10 3/mcL Normal 0.9-4.3 [facility] ([place]) Comment on above: Performed By: #### C BC, MG, PHOS, GFR, CMP, ADIFF, DIFF, ANEU, MORPH #### [address] [address] Lymphocytes/100 WBC (Bld) 18.0 % Low 20.0-40.0 [facility] ([place]) Comment on above: Performed By: #### C BC, MG, PHOS, GFR, CMP, ADIFF, DIFF, ANEU, MORPH #### [address] [address] Monocyte, Absolute 0.8 10 3/mcL Normal 0.1-1.4 [facility] ([place]) Comment on above: Performed By: #### C BC, MG, PHOS, GFR, CMP, ADIFF, DIFF, ANEU, MORPH #### [address] [address] Monocytes/100 WBC (Bld) 11.0 % Normal 2.0-13.0 [facility] ([place]) Comment on above: Performed By: #### C BC, MG, PHOS, GFR, CMP, ADIFF, DIFF, ANEU, MORPH #### [address] [address] Neutrophils/100 WBC (Bld) 68.8 % Normal 50.0-75.0 [facility] ([place]) Comment on above: Performed By: #### C BC, MG, PHOS, GFR, CMP, ADIFF, DIFF, ANEU, MORPH #### [address] [address] .Morphon 10-21-2023 Anisocytosis Ql (Bld) 1+ Normal [facility] ([place]) Comment on above: Performed By: #### C BC, MG, PHOS, GFR, CMP, ADIFF, DIFF, ANEU, MORPH #### [place] [address] Hypochrom 1+ Normal [facility] ([place]) Comment on above: Performed By: #### C BC, MG, PHOS, GFR, CMP, ADIFF, DIFF, ANEU, MORPH #### [address] [address] Platelet Estimate Normal Normal [facility] ([place]) Comment on above: Performed By: #### C BC, MG, PHOS, GFR, CMP, ADIFF, DIFF, ANEU, MORPH #### [place] [address] .NEUABSon 10-21-2023 Neutrophil, Absolute 5.2 10 3/mcL Normal 2.3-8.1 [facility] ([place]) Comment on above: Performed By: #### C BC, MG, PHOS, GFR, CMP, ADIFF, DIFF, ANEU, MORPH #### [address] [address] BGon 10-21-2023 Base excess Calc (Bld) [Moles/Vol] 15.3 mmol/L Normal [facility] ([place]) Comment on above: Performed By: #### B G #### [address] [address] CO2 [Moles/Vol] 44.0 mmol/L Critically abnormal 22.0-30.0 [facility] ([place]) Comment on above: Performed By: #### B G #### [place] [id number] HCO3 (Bld) [Moles/Vol] 41.9 mmol/L High 21.0-29.0 [facility] ([place]) Comment on above: Performed By: #### B G #### [place] [id number] Oxygen (Bld) [Partial pressure] 84.8 mm[Hg] Normal 74.0-108.0 [facility] ([place]) Comment on above: Performed By: #### B G #### [place] [id number] Oxygen saturation in Blood 96.7 % High 92.0-96.0 [facility] ([place]) Comment on above: Performed By: #### B G #### [place] [address] pCO2 68.1 mmHg Critically abnormal 32.0-46.0 [facility] ([place]) Comment on above: Performed By: #### B G #### [place] [id number] pH (Bld) 7.407 [pH] Normal 7.380-7.460 [facility] ([place]) Comment on above: Performed By: #### B G #### [place] [id number] CBCon 10-21-2023 Erythrocyte distribution width (RBC) [Ratio] 14.3 % Normal 11.5-15.5 [facility] ([place]) Comment on above: Performed By: #### C BC, MG, PHOS, GFR, CMP, ADIFF, DIFF, ANEU, MORPH #### [place] [id number] Hematocrit (Bld) [Volume fraction] 22.9 % Low 34.0-46.0 [facility] ([place]) Comment on above: Performed By: #### C BC, MG, PHOS, GFR, CMP, ADIFF, DIFF, ANEU, MORPH #### [place] [address] Hgb 7.4 G/dL Low 12.0-16.0 [facility] ([place]) Comment on above: Performed By: #### C BC, MG, PHOS, GFR, CMP, ADIFF, DIFF, ANEU, MORPH #### [place] [address] MCH (RBC) [Entitic mass] 30.0 pg Normal 27.0-33.0 [facility] ([place]) Comment on above: Performed By: #### C BC, MG, PHOS, GFR, CMP, ADIFF, DIFF, ANEU, MORPH #### [place] [address] MCHC 32.2 G/dL Normal 32.0-36.0 [facility] ([place]) Comment on above: Performed By: #### C BC, MG, PHOS, GFR, CMP, ADIFF, DIFF, ANEU, MORPH #### [place] [address] MCV (RBC) [Entitic vol] 93.1 fL Normal 80.0-99.0 [facility] ([place]) Comment on above: Performed By: #### C BC, MG, PHOS, GFR, CMP, ADIFF, DIFF, ANEU, MORPH #### [place] [address] Platelet 232 10 3/mcL Normal 150-450 [facility] ([place]) Comment on above: Performed By: #### C BC, MG, PHOS, GFR, CMP, ADIFF, DIFF, ANEU, MORPH #### [place] [address] Platelet mean volume (Bld) [Entitic vol] 8.1 fL Normal 6.6-10.5 [facility] ([place] Comment on above: Performed By: #### C BC, MG, PHOS, GFR, CMP, ADIFF, DIFF, ANEU, MORPH #### [place] [address] RBC 2.45 10 6/mcL Low 4.10-5.30 [facility] ([place] Comment on above: Performed By: #### C BC, MG, PHOS, GFR, CMP, ADIFF, DIFF, ANEU, MORPH #### [address] [address] WBC 7.5 10 3/mcL Normal 4.5-10.8 [facility] ([place]) Comment on above: Performed By: #### C BC, MG, PHOS, GFR, CMP, ADIFF, DIFF, ANEU, MORPH #### [address] [address] PROon 10-21-2023 INR Coag (PPP) [Relative time] 1.0 {INR} Normal [facility] ([place]) Comment on above: Result Comment: [employer] (CHEST, 1992, 102:312S-25S) recommended therapeutic range for oral anticoagulant therapy is: LOW RISK: Prophylaxis of venous thrombosis INR: 2.0-3.0 Treatment of pulmonary embolism 2.0-3.0 Prevention of systemic embolism 2.0-3.0 HIGH RISK: Mechanical prosthetic valves 2.5-3.5 Performed By: #### C BC, MG, PHOS, GFR, CMP, ADIFF, DIFF, ANEU, MORPH #### [address] [id number] PT Coag (PPP) [Time] 11.7 s Normal 9.0-14.2 formerly [facility] ([place]) Comment on above: Result Comment: Effe ctive 01/17/08, Protime results may be affected by some antibiotics (i.e. Ciprofloxacin, Azithromycin, Bactrim) which may potentiate the action of oral anticoagulants, with further increases in Protime/INR. Performed By: #### C BC, MG, PHOS, GFR, CMP, ADIFF, DIFF, ANEU, MORPH #### [address] [id number] PROon 10-20-2023 INR Coag (PPP) [Relative time] 1.1 {INR} Normal [facility] ([place]) Comment on above: Result Comment: Spec imen hemolyzed. Results may be affected. [employer] (CHEST, 1992, [id number]) recommended therapeutic range for oral anticoagulant therapy is: LOW RISK: Prophylaxis of venous thrombosis INR: 2.0-3.0 Treatment of pulmonary embolism 2.0-3.0 Prevention of systemic embolism 2.0-3.0 HIGH RISK: Mechanical prosthetic valves 2.5-3.5 Performed By: #### C BC, MG, PHOS, GFR, CMP, ADIFF, DIFF, ANEU, MORPH #### [address] [address] PT Coag (PPP) [Time] 12.6 s Normal 9.0-14.2 formerly [facility] ([place]) Comment on above: Result Comment: Spec imen hemolyzed. Results may be affected. Effective 01/17/08, Protime results may be affected by some antibiotics (i.e. Ciprofloxacin, Azithromycin, Bactrim) which may potentiate the action of oral anticoagulants, with further increases in Protime/INR. Performed By: #### C BC, MG, PHOS, GFR, CMP, ADIFF, DIFF, ANEU, MORPH #### [address] [address] PROon 10-19-2023 INR Coag (PPP) [Relative time] 1.0 {INR} Normal [facility] ([place]) Comment on above: Result Comment: Spec imen hemolyzed. Results may be affected. [employer] (CHEST, 1992, 102:312S-25S) recommended therapeutic range for oral anticoagulant therapy is: LOW RISK: Prophylaxis of venous thrombosis INR: 2.0-3.0 Treatment of pulmonary embolism 2.0-3.0 Prevention of systemic embolism 2.0-3.0 HIGH RISK: Mechanical prosthetic valves 2.5-3.5 Performed By: #### C BC, MG, PHOS, GFR, CMP, ADIFF, DIFF, ANEU, MORPH #### [place] [id number] [place] [id number] PT Coag (PPP) [Time] 11.8 s Normal 9.0-14.2 formerly [facility] ([place]) Comment on above: Result Comment: Spec imen hemolyzed. Results may be affected. Effective 01/17/08, Protime results may be affected by some antibiotics (i.e. Ciprofloxacin, Azithromycin, Bactrim) which may potentiate the action of oral anticoagulants, with further increases in Protime/INR. Performed By: #### C BC, MG, PHOS, GFR, CMP, ADIFF, DIFF, ANEU, MORPH #### [address] [address] .Auto Diffon 10-18-2023 Basophil, Absolute 0.0 10 3/mcL Normal 0.0-0.3 [facility] ([place]) Comment on above: Performed By: #### C BC, MG, PHOS, GFR, CMP, ADIFF, DIFF, ANEU, MORPH #### [address] [address] Basophils/100 WBC (Bld) 0.4 % Normal 0.0-2.5 A [facility] ([place]) Comment on above: Performed By: #### C BC, MG, PHOS, GFR, CMP, ADIFF, DIFF, ANEU, MORPH #### [address] [address] Eosinophil, Absolute 0.1 10 3/mcL Normal 0.0-0.7 [facility] ([place]) Comment on above: Performed By: #### C BC, MG, PHOS, GFR, CMP, ADIFF, DIFF, ANEU, MORPH #### [address] [address] Eosinophils/100 WBC (Bld) 0.9 % Normal 0.0-6.0 [facility] ([place]) Comment on above: Performed By: #### C BC, MG, PHOS, GFR, CMP, ADIFF, DIFF, ANEU, MORPH #### [address] [address] Lymphocyte, Absolute 1.3 10 3/mcL Normal 0.9-4.3 [facility] ([place]) Comment on above: Performed By: #### C BC, MG, PHOS, GFR, CMP, ADIFF, DIFF, ANEU, MORPH #### [address] [address] Lymphocytes/100 WBC (Bld) 12.2 % Low 20.0-40.0 [facility] ([place]) Comment on above: Performed By: #### C BC, MG, PHOS, GFR, CMP, ADIFF, DIFF, ANEU, MORPH #### [address] [address] Monocyte, Absolute 1.0 10 3/mcL Normal 0.1-1.4 [facility] ([place]) Comment on above: Performed By: #### C BC, MG, PHOS, GFR, CMP, ADIFF, DIFF, ANEU, MORPH #### [address] [address] Monocytes/100 WBC (Bld) 10.1 % Normal 2.0-13.0 [facility] ([place]) Comment on above: Performed By: #### C BC, MG, PHOS, GFR, CMP, ADIFF, DIFF, ANEU, MORPH #### [address] [address] Neutrophils/100 WBC (Bld) 76.4 % High 50.0-75.0 [facility] ([place]) Comment on above: Performed By: #### C BC, MG, PHOS, GFR, CMP, ADIFF, DIFF, ANEU, MORPH #### [address] [address] .NEUABSon 10-18-2023 Neutrophil, Absolute 7.9 10 3/mcL Normal 2.3-8.1 [facility] ([place]) Comment on above: Performed By: #### C BC, MG, PHOS, GFR, CMP, ADIFF, DIFF, ANEU, MORPH #### [address] [address] CARECOORDon 10-18-2023 [facility] Patient Choice Patient Name: LUIZA MAY Date of : 1955 [facility] CBCon 10-18-2023 Erythrocyte distribution width (RBC) [Ratio] 14.6 % Normal 11.5-15.5 [facility] ([place]) Comment on above: Performed By: #### C BC, MG, PHOS, GFR, CMP, ADIFF, DIFF, ANEU, MORPH #### [address] [address] Hematocrit (Bld) [Volume fraction] 23.4 % Low 34.0-46.0 [facility] ([place]) Comment on above: Performed By: #### C BC, MG, PHOS, GFR, CMP, ADIFF, DIFF, ANEU, MORPH #### [place] [address] Hgb 7.5 G/dL Low 12.0-16.0 [facility] ([place]) Comment on above: Performed By: #### C BC, MG, PHOS, GFR, CMP, ADIFF, DIFF, ANEU, MORPH #### [place] [address] MCH (RBC) [Entitic mass] 30.1 pg Normal 27.0-33.0 [facility] ([place]) Comment on above: Performed By: #### C BC, MG, PHOS, GFR, CMP, ADIFF, DIFF, ANEU, MORPH #### [place] [address] MCHC 32.3 G/dL Normal 32.0-36.0 [facility] ([place]) Comment on above: Performed By: #### C BC, MG, PHOS, GFR, CMP, ADIFF, DIFF, ANEU, MORPH #### [place] [address] MCV (RBC) [Entitic vol] 93.2 fL Normal 80.0-99.0 A [facility] ([place]) Comment on above: Performed By: #### C BC, MG, PHOS, GFR, CMP, ADIFF, DIFF, ANEU, MORPH #### [place] [address] Platelet 223 10 3/mcL Normal 150-450 [facility] ([place]) Comment on above: Performed By: #### C BC, MG, PHOS, GFR, CMP, ADIFF, DIFF, ANEU, MORPH #### [place] [address] Platelet mean volume (Bld) [Entitic vol] 8.6 fL Normal 6.6-10.5 [facility] ([place]) Comment on above: Performed By: #### C BC, MG, PHOS, GFR, CMP, ADIFF, DIFF, ANEU, MORPH #### [place] [address] RBC 2.51 10 6/mcL Low 4.10-5.30 [facility] ([place]) Comment on above: Performed By: #### C BC, MG, PHOS, GFR, CMP, ADIFF, DIFF, ANEU, MORPH #### [place] [address] WBC 10.4 10 3/mcL Normal 4.5-10.8 [facility] ([place]) Comment on above: Performed By: #### C BC, MG, PHOS, GFR, CMP, ADIFF, DIFF, ANEU, MORPH #### [place] [address] PROon 10-18-2023 INR Coag (PPP) [Relative time] 1.1 {INR} Normal [facility] ([place]) Comment on above: Result Comment: [employer] (CHEST, 1992, 102:312S-25S) recommended therapeutic range for oral anticoagulant therapy is: LOW RISK: Prophylaxis of venous thrombosis INR: 2.0-3.0 Treatment of pulmonary embolism 2.0-3.0 Prevention of systemic embolism 2.0-3.0 HIGH RISK: Mechanical prosthetic valves 2.5-3.5 Performed By: #### C BC, MG, PHOS, GFR, CMP, ADIFF, DIFF, ANEU, MORPH #### [place] [address] PT Coag (PPP) [Time] 12.7 s Normal 9.0-14.2 [facility] ([place]) Comment on above: Result Comment: Effe ctive 01/17/08, Protime results may be affected by some antibiotics (i.e. Ciprofloxacin, Azithromycin, Bactrim) which may potentiate the action of oral anticoagulants, with further increases in Protime/INR. Performed By: #### C BC, MG, PHOS, GFR, CMP, ADIFF, DIFF, ANEU, MORPH #### [place] [address] PROon 2023 INR Coag (PPP) [Relative time] 1.0 {INR} Normal [facility] ([place]) Comment on above: Result Comment: [employer] (CHEST, 1991, 102:312S-25S) recommended therapeutic range for oral anticoagulant therapy is: LOW RISK: Prophylaxis of venous thrombosis INR: 2.0-3.0 Treatment of pulmonary embolism 2.0-3.0 Prevention of systemic embolism 2.0-3.0 HIGH RISK: Mechanical prosthetic valves 2.5-3.5 Performed By: #### C BC, MG, PHOS, GFR, CMP, ADIFF, DIFF, ANEU, MORPH #### [place] [id number] [place] [address] PT Coag (PPP) [Time] 11.2 s Normal 9.0-14.2 [facility] ([place]) Comment on above: Result Comment: Effe ctive 01/17/08, Protime results may be affected by some antibiotics (i.e. Ciprofloxacin, Azithromycin, Bactrim) which may potentiate the action of oral anticoagulants, with further increases in Protime/INR. Performed By: #### C BC, MG, PHOS, GFR, CMP, ADIFF, DIFF, ANEU, MORPH #### [address] [address] XR CHEST 1 VIEWon 2023 XR CHEST 1 VIEW ORIGINAL HISTORY: Desaturation COMPARISON: 2 days previously FINDINGS: There is a tracheostomy. The lungs are clear. The pulmonary vasculature is unremarkable in appearance. IMPRESSION: Clear lungs. Interpreted by: Jeet Andresen MD Preliminary Report By: Jeet Andersen MD Electronically signed By Jeet Andersen MD Dictated Date: 2023 12:52:36 PM Prelim Date: 2023 12:53:12 PM Sign Date: 2023 12:53:12 PM Ordering Provider: KAILEY Galeano [facility] ([place]) PROon 10-16-2023 INR Coag (PPP) [Relative time] 1.1 {INR} Normal [facility] ([place]) Comment on above: Result Comment: [employer] (CHEST, 1991, 102:312S-25S) recommended therapeutic range for oral anticoagulant therapy is: LOW RISK: Prophylaxis of venous thrombosis INR: 2.0-3.0 Treatment of pulmonary embolism 2.0-3.0 Prevention of systemic embolism 2.0-3.0 HIGH RISK: Mechanical prosthetic valves 2.5-3.5 Performed By: #### C BC, MG, PHOS, GFR, CMP, ADIFF, DIFF, ANEU, MORPH #### [address] [address] PT Coag (PPP) [Time] 12.1 s Normal 9.0-14.2 [facility] ([place]) Comment on above: Result Comment: Effe ctive 01/17/08, Protime results may be affected by some antibiotics (i.e. Ciprofloxacin, Azithromycin, Bactrim) which may potentiate the action of oral anticoagulants, with further increases in Protime/INR. Performed By: #### C BC, MG, PHOS, GFR, CMP, ADIFF, DIFF, ANEU, MORPH #### [address] [address] .GFRon 10-15-2023 GFR >60 Normal formerly [facility] ([place]) Comment on above: Result Comment: GFR Population mean for , Non- Americans Ages 20-29 = 116 mL/min/1.73 sq.m. Ages 30-39 = 107 mL/min/1.73 sq.m. Ages 40-49 = 99 mL/min/1.73 sq.m. Ages 50-59 = 93 mL/min/1.73 sq.m. Ages 60-69 = 85 mL/min/1.73 sq.m. Ages 70+ = 75 mL/min/1.73 sq.m. Chronic Kidney Disease: Less than 60 mL/min/1.73 square meters End Stage Renal Disease: Less than 15 mL/min/1.73 square meters Performed By: #### C BC, MG, PHOS, GFR, CMP, ADIFF, DIFF, ANEU, MORPH #### [address] [address] GFR Non- >60 Normal [facility] ([place]) Comment on above: Result Comment: GFR Population mean for , Non- Americans Ages 20-29 = 116 mL/min/1.73 sq.m. Ages 30-39 = 107 mL/min/1.73 sq.m. Ages 40-49 = 99 mL/min/1.73 sq.m. Ages 50-59 = 93 mL/min/1.73 sq.m. Ages 60-69 = 85 mL/min/1.73 sq.m. Ages 70+ = 75 mL/min/1.73 sq.m. Chronic Kidney Disease: Less than 60 mL/min/1.73 square meters End Stage Renal Disease: Less than 15 mL/min/1.73 square meters Performed By: #### C BC, MG, PHOS, GFR, CMP, ADIFF, DIFF, ANEU, MORPH #### [address] [address] BMPon 10-15-2023 BUN/Creatinine Ratio 36.4 ratio High 10.0-22.0 [facility] ([place]) Comment on above: Performed By: #### C BC, MG, PHOS, GFR, CMP, ADIFF, DIFF, ANEU, MORPH #### [address] [address] Calcium [Mass/Vol] 10.1 mg/dL Normal 8.7-10.4 [facility] ([place]) Comment on above: Performed By: #### C BC, MG, PHOS, GFR, CMP, ADIFF, DIFF, ANEU, MORPH #### [address] [address] Chloride [Moles/Vol] 102 mmol/L Normal 98-110 [facility] ([place]) Comment on above: Performed By: #### C BC, MG, PHOS, GFR, CMP, ADIFF, DIFF, ANEU, MORPH #### [address] [address] CO2 [Moles/Vol] 36 mmol/L High 22-32 [facility] ([place]) Comment on above: Performed By: #### C BC, MG, PHOS, GFR, CMP, ADIFF, DIFF, ANEU, MORPH #### [address] [address] Creatinine [Mass/Vol] 0.66 mg/dL Normal 0.50-1.20 [facility] ([place]) Comment on above: Performed By: #### C BC, MG, PHOS, GFR, CMP, ADIFF, DIFF, ANEU, MORPH #### [address] [address] Electrolyte Balance 6.0 mEq/L Normal 4.0-15.0 [facility] ([place]) Comment on above: Performed By: #### C BC, MG, PHOS, GFR, CMP, ADIFF, DIFF, ANEU, MORPH #### [address] [address] Glucose [Mass/Vol] 107 mg/dL Normal 82-115 [facility] ([place]) Comment on above: Performed By: #### C BC, MG, PHOS, GFR, CMP, ADIFF, DIFF, ANEU, MORPH #### [address] [address] Potassium [Moles/Vol] 4.4 mmol/L Normal 3.5-5.0 [facility] ([place]) Comment on above: Performed By: #### C BC, MG, PHOS, GFR, CMP, ADIFF, DIFF, ANEU, MORPH #### [address] [address] Sodium [Moles/Vol] 144 mmol/L Normal 136-145 [facility] ([place]) Comment on above: Performed By: #### C BC, MG, PHOS, GFR, CMP, ADIFF, DIFF, ANEU, MORPH #### [address] [address] Urea nitrogen [Mass/Vol] 24.0 mg/dL High 8.0-22.0 [facility] ([place]) Comment on above: Performed By: #### C BC, MG, PHOS, GFR, CMP, ADIFF, DIFF, ANEU, MORPH #### [address] [address] PROon 10-15-2023 INR Coag (PPP) [Relative time] 1.1 {INR} Normal [facility] ([place]) Comment on above: Result Comment: [employer] (CHEST, 1992, 102:312S-25S) recommended therapeutic range for oral anticoagulant therapy is: LOW RISK: Prophylaxis of venous thrombosis INR: 2.0-3.0 Treatment of pulmonary embolism 2.0-3.0 Prevention of systemic embolism 2.0-3.0 HIGH RISK: Mechanical prosthetic valves 2.5-3.5 Performed By: #### C BC, MG, PHOS, GFR, CMP, ADIFF, DIFF, ANEU, MORPH #### [address] [address] PT Coag (PPP) [Time] 12.1 s Normal 9.0-14.2 [facility] ([place]) Comment on above: Result Comment: Effe ctive 01/17/08, Protime results may be affected by some antibiotics (i.e. Ciprofloxacin, Azithromycin, Bactrim) which may potentiate the action of oral anticoagulants, with further increases in Protime/INR. Performed By: #### C BC, MG, PHOS, GFR, CMP, ADIFF, DIFF, ANEU, MORPH #### [address] [address] XR CHEST 1 VIEWon 10-15-2023 XR CHEST 1 VIEW ORIGINAL EXAMINATION: ONE XRAY VIEW OF THE CHEST10/15/2023 8:20 am CHEST ONE VIEW AP/PA COMPARISON: 10/13/2023 HISTORY: ORDERING SYSTEM PROVIDED HISTORY: Reason for Exam: Shortness of breath FINDINGS: Tracheostomy site is in good position. Heart size and vascularity are within normal limits. The lungs are clear of focal consolidation. No effusion, pneumothorax, or acute osseous abnormality. IMPRESSION: No radiographic evidence of acute cardiopulmonary process. Interpreted by: Leobardo Gregg MD Preliminary Report By: Leobardo Gregg MD Electronically signed By Leobardo Gregg MD Dictated Date: 10/15/2023 8:30:02 AM Prelim Date: 10/15/2023 8:34:58 AM Sign Date: 10/15/2023 8:34:58 AM Ordering Provider: KAILEY Galeano [facility] ([place]) .Auto Diffon 10-14-2023 Basophil, Absolute 0.1 10 3/mcL Normal 0.0-0.3 [facility] ([place]) Comment on above: Performed By: #### C BC, MG, PHOS, GFR, CMP, ADIFF, DIFF, ANEU, MORPH #### [address] [address] Basophils/100 WBC (Bld) 0.6 % Normal 0.0-2.5 A [facility] ([place]) Comment on above: Performed By: #### C BC, MG, PHOS, GFR, CMP, ADIFF, DIFF, ANEU, MORPH #### [address] [address] Eosinophil, Absolute 0.2 10 3/mcL Normal 0.0-0.7 [facility] ([place]) Comment on above: Performed By: #### C BC, MG, PHOS, GFR, CMP, ADIFF, DIFF, ANEU, MORPH #### [address] [address] Eosinophils/100 WBC (Bld) 1.5 % Normal 0.0-6.0 [facility] ([place]) Comment on above: Performed By: #### C BC, MG, PHOS, GFR, CMP, ADIFF, DIFF, ANEU, MORPH #### [address] [address] Lymphocyte, Absolute 1.5 10 3/mcL Normal 0.9-4.3 [facility] ([place]) Comment on above: Performed By: #### C BC, MG, PHOS, GFR, CMP, ADIFF, DIFF, ANEU, MORPH #### [address] [address] Lymphocytes/100 WBC (Bld) 12.3 % Low 20.0-40.0 [facility] ([place]) Comment on above: Performed By: #### C BC, MG, PHOS, GFR, CMP, ADIFF, DIFF, ANEU, MORPH #### [address] [address] Monocyte, Absolute 1.0 10 3/mcL Normal 0.1-1.4 [facility] ([place]) Comment on above: Performed By: #### C BC, MG, PHOS, GFR, CMP, ADIFF, DIFF, ANEU, MORPH #### [address] [address] Monocytes/100 WBC (Bld) 8.6 % Normal 2.0-13.0 [facility] ([place]) Comment on above: Performed By: #### C BC, MG, PHOS, GFR, CMP, ADIFF, DIFF, ANEU, MORPH #### [address] [address] Neutrophils/100 WBC (Bld) 77.0 % High 50.0-75.0 [facility] ([place]) Comment on above: Performed By: #### C BC, MG, PHOS, GFR, CMP, ADIFF, DIFF, ANEU, MORPH #### [address] [address] .GFRon 10-14-2023 GFR >60 Normal [facility] ([place]) Comment on above: Result Comment: GFR Population mean for , Non- Americans Ages 20-29 = 116 mL/min/1.73 sq.m. Ages 30-39 = 107 mL/min/1.73 sq.m. Ages 40-49 = 99 mL/min/1.73 sq.m. Ages 50-59 = 93 mL/min/1.73 sq.m. Ages 60-69 = 85 mL/min/1.73 sq.m. Ages 70+ = 75 mL/min/1.73 sq.m. Chronic Kidney Disease: Less than 60 mL/min/1.73 square meters End Stage Renal Disease: Less than 15 mL/min/1.73 square meters Performed By: #### C BC, MG, PHOS, GFR, CMP, ADIFF, DIFF, ANEU, MORPH #### [address] [address] GFR Non- >60 Normal [facility] ([place]) Comment on above: Result Comment: GFR Population mean for , Non- Americans Ages 20-29 = 116 mL/min/1.73 sq.m. Ages 30-39 = 107 mL/min/1.73 sq.m. Ages 40-49 = 99 mL/min/1.73 sq.m. Ages 50-59 = 93 mL/min/1.73 sq.m. Ages 60-69 = 85 mL/min/1.73 sq.m. Ages 70+ = 75 mL/min/1.73 sq.m. Chronic Kidney Disease: Less than 60 mL/min/1.73 square meters End Stage Renal Disease: Less than 15 mL/min/1.73 square meters Performed By: #### C BC, MG, PHOS, GFR, CMP, ADIFF, DIFF, ANEU, MORPH #### [address] [address] .NEUABSon 10-14-2023 Neutrophil, Absolute 9.2 10 3/mcL High 2.3-8.1 [facility] ([place]) Comment on above: Performed By: #### C BC, MG, PHOS, GFR, CMP, ADIFF, DIFF, ANEU, MORPH #### [address] [address] BMPon 10-14-2023 BUN/Creatinine Ratio 39.3 ratio High 10.0-22.0 [facility] ([place]) Comment on above: Performed By: #### C BC, MG, PHOS, GFR, CMP, ADIFF, DIFF, ANEU, MORPH #### [place] [address] Calcium [Mass/Vol] 10.1 mg/dL Normal 8.7-10.4 [facility] ([place]) Comment on above: Performed By: #### C BC, MG, PHOS, GFR, CMP, ADIFF, DIFF, ANEU, MORPH #### [place] [id number] Chloride [Moles/Vol] 103 mmol/L Normal 98-110 [facility] ([place]) Comment on above: Performed By: #### C BC, MG, PHOS, GFR, CMP, ADIFF, DIFF, ANEU, MORPH #### [place] [id number] CO2 [Moles/Vol] 35 mmol/L High 22-32 [facility] ([place]) Comment on above: Performed By: #### C BC, MG, PHOS, GFR, CMP, ADIFF, DIFF, ANEU, MORPH #### [place] [address] Creatinine [Mass/Vol] 0.61 mg/dL Normal 0.50-1.20 [facility] ([place]) Comment on above: Performed By: #### C BC, MG, PHOS, GFR, CMP, ADIFF, DIFF, ANEU, MORPH #### [address] [address] Electrolyte Balance 5.0 mEq/L Normal 4.0-15.0 [facility] ([place]) Comment on above: Performed By: #### C BC, MG, PHOS, GFR, CMP, ADIFF, DIFF, ANEU, MORPH #### [place] [id number] Glucose [Mass/Vol] 105 mg/dL Normal 82-115 [facility] ([place]) Comment on above: Performed By: #### C BC, MG, PHOS, GFR, CMP, ADIFF, DIFF, ANEU, MORPH #### [place] [id number] Potassium [Moles/Vol] 4.3 mmol/L Normal 3.5-5.0 [facility] ([place]) Comment on above: Performed By: #### C BC, MG, PHOS, GFR, CMP, ADIFF, DIFF, ANEU, MORPH #### [place] [id number] Sodium [Moles/Vol] 143 mmol/L Normal 136-145 [facility] ([place]) Comment on above: Performed By: #### C BC, MG, PHOS, GFR, CMP, ADIFF, DIFF, ANEU, MORPH #### [place] [address] Urea nitrogen [Mass/Vol] 24.0 mg/dL High 8.0-22.0 [facility] ([place]) Comment on above: Performed By: #### C BC, MG, PHOS, GFR, CMP, ADIFF, DIFF, ANEU, MORPH #### [address] [address] CBCon 10-14-2023 Erythrocyte distribution width (RBC) [Ratio] 15.0 % Normal 11.5-15.5 [facility] ([place]) Comment on above: Performed By: #### C BC, MG, PHOS, GFR, CMP, ADIFF, DIFF, ANEU, MORPH #### [address] [address] Hematocrit (Bld) [Volume fraction] 26.9 % Low 34.0-46.0 [facility] ([place]) Comment on above: Performed By: #### C BC, MG, PHOS, GFR, CMP, ADIFF, DIFF, ANEU, MORPH #### [place] [address] Hgb 8.9 G/dL Low 12.0-16.0 [facility] ([place]) Comment on above: Performed By: #### C BC, MG, PHOS, GFR, CMP, ADIFF, DIFF, ANEU, MORPH #### [place] [address] MCH (RBC) [Entitic mass] 30.4 pg Normal 27.0-33.0 [facility] ([place]) Comment on above: Performed By: #### C BC, MG, PHOS, GFR, CMP, ADIFF, DIFF, ANEU, MORPH #### [place] [address] MCHC 33.1 G/dL Normal 32.0-36.0 [facility] ([place]) Comment on above: Performed By: #### C BC, MG, PHOS, GFR, CMP, ADIFF, DIFF, ANEU, MORPH #### [place] [address] MCV (RBC) [Entitic vol] 91.9 fL Normal 80.0-99.0 [facility] ([place]) Comment on above: Performed By: #### C BC, MG, PHOS, GFR, CMP, ADIFF, DIFF, ANEU, MORPH #### [place] [address] Platelet 300 10 3/mcL Normal 150-450 [facility] ([place]) Comment on above: Performed By: #### C BC, MG, PHOS, GFR, CMP, ADIFF, DIFF, ANEU, MORPH #### [place] [address] Platelet mean volume (Bld) [Entitic vol] 8.8 fL Normal 6.6-10.5 [facility] ([place]) Comment on above: Performed By: #### C BC, MG, PHOS, GFR, CMP, ADIFF, DIFF, ANEU, MORPH #### [place] [address] RBC 2.93 10 6/mcL Low 4.10-5.30 [facility] ([place]) Comment on above: Performed By: #### C BC, MG, PHOS, GFR, CMP, ADIFF, DIFF, ANEU, MORPH #### [place] [address] WBC 11.9 10 3/mcL High 4.5-10.8 [facility] ([place]) Comment on above: Performed By: #### C BC, MG, PHOS, GFR, CMP, ADIFF, DIFF, ANEU, MORPH #### [place] [address] PROon 10-14-2023 INR Coag (PPP) [Relative time] 1.1 {INR} Normal [facility] ([place]) Comment on above: Result Comment: [employer] (CHEST, 1992, 102:312S-25S) recommended therapeutic range for oral anticoagulant therapy is: LOW RISK: Prophylaxis of venous thrombosis INR: 2.0-3.0 Treatment of pulmonary embolism 2.0-3.0 Prevention of systemic embolism 2.0-3.0 HIGH RISK: Mechanical prosthetic valves 2.5-3.5 Performed By: #### C BC, MG, PHOS, GFR, CMP, ADIFF, DIFF, ANEU, MORPH #### [place] [address] PT Coag (PPP) [Time] 12.6 s Normal 9.0-14.2 [facility] ([place]) Comment on above: Result Comment: Effe ctive 01/17/08, Protime results may be affected by some antibiotics (i.e. Ciprofloxacin, Azithromycin, Bactrim) which may potentiate the action of oral anticoagulants, with further increases in Protime/INR. Performed By: #### C BC, MG, PHOS, GFR, CMP, ADIFF, DIFF, ANEU, MORPH #### [place] [address] .Auto Diffon 10-13-2023 Basophil, Absolute 0.0 10 3/mcL Normal 0.0-0.3 [facility] ([place]) Comment on above: Performed By: #### C BC, MG, PHOS, GFR, CMP, ADIFF, DIFF, ANEU, MORPH #### [address] [address] Basophils/100 WBC (Bld) 0.3 % Normal 0.0-2.5 [facility] ([place]) Comment on above: Performed By: #### C BC, MG, PHOS, GFR, CMP, ADIFF, DIFF, ANEU, MORPH #### [address] [address] Eosinophil, Absolute 0.2 10 3/mcL Normal 0.0-0.7 [facility] ([place]) Comment on above: Performed By: #### C BC, MG, PHOS, GFR, CMP, ADIFF, DIFF, ANEU, MORPH #### [address] [address] Eosinophils/100 WBC (Bld) 1.7 % Normal 0.0-6.0 [facility] ([place] Comment on above: Performed By: #### C BC, MG, PHOS, GFR, CMP, ADIFF, DIFF, ANEU, MORPH #### [address] [address] Lymphocyte, Absolute 1.3 10 3/mcL Normal 0.9-4.3 [facility] ([place]) Comment on above: Performed By: #### C BC, MG, PHOS, GFR, CMP, ADIFF, DIFF, ANEU, MORPH #### [address] [address] Lymphocytes/100 WBC (Bld) 11.4 % Low 20.0-40.0 [facility] ([place]) Comment on above: Performed By: #### C BC, MG, PHOS, GFR, CMP, ADIFF, DIFF, ANEU, MORPH #### [address] [address] Monocyte, Absolute 1.0 10 3/mcL Normal 0.1-1.4 [facility] ([place]) Comment on above: Performed By: #### C BC, MG, PHOS, GFR, CMP, ADIFF, DIFF, ANEU, MORPH #### [address] [address] Monocytes/100 WBC (Bld) 8.6 % Normal 2.0-13.0 [facility] ([place]) Comment on above: Performed By: #### C BC, MG, PHOS, GFR, CMP, ADIFF, DIFF, ANEU, MORPH #### [address] [address] Neutrophils/100 WBC (Bld) 78.0 % High 50.0-75.0 [facility] ([place]) Comment on above: Performed By: #### C BC, MG, PHOS, GFR, CMP, ADIFF, DIFF, ANEU, MORPH #### [address] [address] .GFRon 10-13-2023 GFR >60 Normal [facility] ([place]) Comment on above: Result Comment: GFR Population mean for , Non- Americans Ages 20-29 = 116 mL/min/1.73 sq.m. Ages 30-39 = 107 mL/min/1.73 sq.m. Ages 40-49 = 99 mL/min/1.73 sq.m. Ages 50-59 = 93 mL/min/1.73 sq.m. Ages 60-69 = 85 mL/min/1.73 sq.m. Ages 70+ = 75 mL/min/1.73 sq.m. Chronic Kidney Disease: Less than 60 mL/min/1.73 square meters End Stage Renal Disease: Less than 15 mL/min/1.73 square meters Performed By: #### C BC, MG, PHOS, GFR, CMP, ADIFF, DIFF, ANEU, MORPH #### [address] [address] GFR Non- >60 Normal [facility] ([place]) Comment on above: Result Comment: GFR Population mean for , Non- Americans Ages 20-29 = 116 mL/min/1.73 sq.m. Ages 30-39 = 107 mL/min/1.73 sq.m. Ages 40-49 = 99 mL/min/1.73 sq.m. Ages 50-59 = 93 mL/min/1.73 sq.m. Ages 60-69 = 85 mL/min/1.73 sq.m. Ages 70+ = 75 mL/min/1.73 sq.m. Chronic Kidney Disease: Less than 60 mL/min/1.73 square meters End Stage Renal Disease: Less than 15 mL/min/1.73 square meters Performed By: #### C BC, MG, PHOS, GFR, CMP, ADIFF, DIFF, ANEU, MORPH #### [address] [address] .NEUABSon 10-13-2023 Neutrophil, Absolute 8.8 10 3/mcL High 2.3-8.1 [facility] ([place]) Comment on above: Performed By: #### C BC, MG, PHOS, GFR, CMP, ADIFF, DIFF, ANEU, MORPH #### [place] [address] CBCon 10-13-2023 Erythrocyte distribution width (RBC) [Ratio] 15.1 % Normal 11.5-15.5 [facility] ([place]) Comment on above: Performed By: #### C BC, MG, PHOS, GFR, CMP, ADIFF, DIFF, ANEU, MORPH #### [place] [address] Hematocrit (Bld) [Volume fraction] 24.5 % Low 34.0-46.0 [facility] ([place]) Comment on above: Performed By: #### C BC, MG, PHOS, GFR, CMP, ADIFF, DIFF, ANEU, MORPH #### [place] [address] Hgb 8.2 G/dL Low 12.0-16.0 [facility] ([place]) Comment on above: Performed By: #### C BC, MG, PHOS, GFR, CMP, ADIFF, DIFF, ANEU, MORPH #### [place] [address] MCH (RBC) [Entitic mass] 30.9 pg Normal 27.0-33.0 [facility] ([place]) Comment on above: Performed By: #### C BC, MG, PHOS, GFR, CMP, ADIFF, DIFF, ANEU, MORPH #### [place] [address] MCHC 33.4 G/dL Normal 32.0-36.0 [facility] ([place]) Comment on above: Performed By: #### C BC, MG, PHOS, GFR, CMP, ADIFF, DIFF, ANEU, MORPH #### [place] [address] MCV (RBC) [Entitic vol] 92.5 fL Normal 80.0-99.0 [facility] ([place]) Comment on above: Performed By: #### C BC, MG, PHOS, GFR, CMP, ADIFF, DIFF, ANEU, MORPH #### [place] [address] Platelet 279 10 3/mcL Normal 150-450 [facility] ([place]) Comment on above: Performed By: #### C BC, MG, PHOS, GFR, CMP, ADIFF, DIFF, ANEU, MORPH #### [place] [address] Platelet mean volume (Bld) [Entitic vol] 8.8 fL Normal 6.6-10.5 [facility] ([place]) Comment on above: Performed By: #### C BC, MG, PHOS, GFR, CMP, ADIFF, DIFF, ANEU, MORPH #### [place] [address] RBC 2.65 10 6/mcL Low 4.10-5.30 [facility] ([place]) Comment on above: Performed By: #### C BC, MG, PHOS, GFR, CMP, ADIFF, DIFF, ANEU, MORPH #### [place] [address] WBC 11.3 10 3/mcL High 4.5-10.8 [facility] ([place]) Comment on above: Performed By: #### C BC, MG, PHOS, GFR, CMP, ADIFF, DIFF, ANEU, MORPH #### [place] [address] CMPon 10-13-2023 Albumin Level 4.8 G/dL Normal 3.2-4.8 [facility] ([place]) Comment on above: Performed By: #### C BC, MG, PHOS, GFR, CMP, ADIFF, DIFF, ANEU, MORPH #### [place] [address] Albumin/Globulin [Mass ratio] 2.1 {ratio} High 0.9-1.6 [facility] ([place]) Comment on above: Performed By: #### C BC, MG, PHOS, GFR, CMP, ADIFF, DIFF, ANEU, MORPH #### [address] [address] ALP [Catalytic activity/Vol] 152 U/L High 38-126 [facility] ([place]) Comment on above: Performed By: #### C BC, MG, PHOS, GFR, CMP, ADIFF, DIFF, ANEU, MORPH #### [address] [address] ALT [Catalytic activity/Vol] 59 U/L High 10-49 [facility] ([place]) Comment on above: Performed By: #### C BC, MG, PHOS, GFR, CMP, ADIFF, DIFF, ANEU, MORPH #### [address] [address] AST [Catalytic activity/Vol] 61 U/L High 8-34 [facility] ([place]) Comment on above: Performed By: #### C BC, MG, PHOS, GFR, CMP, ADIFF, DIFF, ANEU, MORPH #### [place] [id number] Bili Total 0.50 mg/dL Normal 0.20-1.20 [facility] ([place]) Comment on above: Result Comment: Use of this assay is not recommended for patients undergoing treatment with eltrombopag due to the potential for falsely elevated results. Performed By: #### C BC, MG, PHOS, GFR, CMP, ADIFF, DIFF, ANEU, MORPH #### [place] [address] BUN/Creatinine Ratio 38.3 ratio High 10.0-22.0 [facility] ([place]) Comment on above: Performed By: #### C BC, MG, PHOS, GFR, CMP, ADIFF, DIFF, ANEU, MORPH #### [place] [id number] Calcium [Mass/Vol] 10.2 mg/dL Normal 8.7-10.4 [facility] ([place]) Comment on above: Performed By: #### C BC, MG, PHOS, GFR, CMP, ADIFF, DIFF, ANEU, MORPH #### [place] [id number] Chloride [Moles/Vol] 104 mmol/L Normal 98-110 [facility] ([place]) Comment on above: Performed By: #### C BC, MG, PHOS, GFR, CMP, ADIFF, DIFF, ANEU, MORPH #### [place] [id number] CO2 [Moles/Vol] 33 mmol/L High 22-32 [facility] ([place]) Comment on above: Performed By: #### C BC, MG, PHOS, GFR, CMP, ADIFF, DIFF, ANEU, MORPH #### [place] [id number] Creatinine [Mass/Vol] 0.60 mg/dL Normal 0.50-1.20 [facility] ([place]) Comment on above: Performed By: #### C BC, MG, PHOS, GFR, CMP, ADIFF, DIFF, ANEU, MORPH #### [place] [address] Electrolyte Balance 5.0 mEq/L Normal 4.0-15.0 [facility] ([place]) Comment on above: Performed By: #### C BC, MG, PHOS, GFR, CMP, ADIFF, DIFF, ANEU, MORPH #### [place] [id number] Globulin 2.3 G/dL Normal 1.5-3.8 [facility] ([place]) Comment on above: Performed By: #### C BC, MG, PHOS, GFR, CMP, ADIFF, DIFF, ANEU, MORPH #### [place] [address] Glucose [Mass/Vol] 95 mg/dL Normal 82-115 [facility] ([place]) Comment on above: Performed By: #### C BC, MG, PHOS, GFR, CMP, ADIFF, DIFF, ANEU, MORPH #### [address] [address] Potassium [Moles/Vol] 3.8 mmol/L Normal 3.5-5.0 [facility] ([place]) Comment on above: Performed By: #### C BC, MG, PHOS, GFR, CMP, ADIFF, DIFF, ANEU, MORPH #### [address] [address] Sodium [Moles/Vol] 142 mmol/L Normal 136-145 [facility] ([place]) Comment on above: Performed By: #### C BC, MG, PHOS, GFR, CMP, ADIFF, DIFF, ANEU, MORPH #### [address] [address] Total Protein 7.1 G/dL Normal 5.7-8.2 [facility] ([place]) Comment on above: Result Comment: No te - New Reference Range in effect 20 Performed By: #### C BC, MG, PHOS, GFR, CMP, ADIFF, DIFF, ANEU, MORPH #### [address] [address] Urea nitrogen [Mass/Vol] 23.0 mg/dL High 8.0-22.0 [facility] ([place]) Comment on above: Performed By: #### C BC, MG, PHOS, GFR, CMP, ADIFF, DIFF, ANEU, MORPH #### [address] [address] MGon 10-13-2023 Magnesium [Mass/Vol] 2.1 mg/dL Normal 1.6-2.4 [facility] ([place]) Comment on above: Performed By: #### C BC, MG, PHOS, GFR, CMP, ADIFF, DIFF, ANEU, MORPH #### [address] [address] PHOSon 10-13-2023 Phosphate [Mass/Vol] 4.3 mg/dL Normal 2.4-5.1 [facility] ([place]) Comment on above: Result Comment: No te - New Reference Range in effect 20 Performed By: #### C BC, MG, PHOS, GFR, CMP, ADIFF, DIFF, ANEU, MORPH #### [facility] [address] [place] [address] XR CHEST 1 VIEWon 10-13-2023 XR CHEST 1 VIEW ORIGINAL EXAMINATION: ONE XRAY VIEW OF THE CHEST10/13/2023 7:04 am COMPARISON: None available HISTORY: ORDERING SYSTEM PROVIDED HISTORY: 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 There is a tracheostomy. No visible pneumothorax. Mildly prominent bilateral interstitial markings. No significant pleural fluid. No acute osseous abnormality identified. IMPRESSION: Nonspecific bilateral interstitial markings, possibly pulmonary edema and/or inflammation/infection depending on the clinical setting. I have personally reviewed the images of this examination, and agree with the resident's findings and interpretation. Interpreted by: Robert Peralta MD Preliminary Report By: Brad Riojas Electronically signed By Robert Peralta MD Dictated Date: 10/13/2023 7:11:25 AM Prelim Date: 10/13/2023 7:13:31 AM Sign Date: 10/13/2023 7:21:19 AM Ordering Provider: KAILEY Galeano [facility] ([place]) BASIC METABOLIC PANELon 04-0 Anion gap [Moles/Vol] 7 mmol/L Normal 3-13 [facility] Comment on above: Performed By: #### L AB15, [id number] ####[facility]p Medical: ROSALVA LOPEZ ([id number])[facility] [place] [address] Calcium [Mass/Vol] 9.8 mg/dL Normal 8.4-10.4 [facility] Comment on above: Performed By: #### L AB15, [id number] ####Vp Medical: ROSALVA LOPEZ ([id number])[facility] [place] [address] Chloride [Moles/Vol] 99 mmol/L Normal 98-107 [facility] Comment on above: Performed By: #### L AB15, [id number] ####Vp Medical: ROSALVA LOPEZ ([id number])[facility] ([facility])[address] [place] [address] CO2 [Moles/Vol] 35 mmol/L High 22-30 [facility] Comment on above: Performed By: #### L AB15, [id number] ####Vp Medical: ROSALVA LOPEZ ([id number])[facility])[address] [place] [address] Creatinine [Mass/Vol] 0.58 mg/dL Normal 0.52-1.04 [facility] Comment on above: Performed By: #### L AB15, [id number] ####Vp Medical: ROSALVA LOPEZ ([id number])[facility])[address] [place] [address] GLOMERULAR FILTRATION RATE ML/MIN/1.73 SQ M.PREDICTED >90.0 Normal >60.0 [facility] Comment on above: Result Comment: Calc ulation based on the Chronic Kidney Disease Epidemiology Collaboration (CKD-EPI) equation refit without adjustment for race Performed By: #### L AB15, [id number] ####Vp Medical: ROSALVA LOPEZ ([id number])[facility])[address] [place] [address] Glucose [Mass/Vol] 105 mg/dL High 70-100 [facility] Comment on above: Performed By: #### L AB15, [id number] ####Vp Medical: ROSALVA LOPEZ ([id number])[facility])[address] [place] [address] [place] Potassium [Moles/Vol] 3.5 mmol/L Normal 3.5-5.1 [facility] Comment on above: Performed By: #### L AB15, [id number] ####Vp Medical: ROSALVA LOPEZ ([id number])[facility])[address] [place] [address] [place] Sodium [Moles/Vol] 142 mmol/L Normal 135-145 [facility] Comment on above: Performed By: #### L AB15, [id number] ####Vp Medical: ROSALVA LOPEZ ([id number])[facility] [place] [address] Urea nitrogen [Mass/Vol] 30 mg/dL High 7-17 [facility] Comment on above: Performed By: #### L AB15, [id number] ####Vp Medical: ROSALVA LOPEZ ([id number])[facility] ([facility])[address] [place] [address] Basic metabolic 1998 panelon 10-12-2023 Anion gap [Moles/Vol] 7 mmol/L 3 - 13 mmol/L [facility] Calcium [Mass/Vol] 9.8 mg/dL 8.4 - 10. 4 mg/dL [facility] Chloride [Moles/Vol] 99 mmol/L 98 - 10 7 mmol/L [facility] CO2 [Moles/Vol] 35 mmol/L High 22 - 30 mmol/L [facility] Creatinine [Mass/Vol] 0.58 mg/dL 0.52 - 1.04 mg/dL [facility] GFR/1.73 sq M.predicted MDRD (S/P/Bld) [Vol rate/Area] - PINF [facility] Glucose [Mass/Vol] 105 mg/dL High 70 - 100 mg/dL [facility] Interpretation and review of laboratory results Abnormal [facility] Potassium [Moles/Vol] 3.5 mmol/L 3.5 - 5.1 mmol/L [facility] Sodium [Moles/Vol] 142 mmol/L 135 - 145 mmol/L [facility] Urea nitrogen [Mass/Vol] 30 mg/dL High 7 - 17 mg/dL [facility] CARECOORDon 10-12-2023 CARECOORD Normal [facility] Discharge med list, SEP and updated notes transmitted to [facility] via [facility] per T[facility] request[facility], NOW HAVE AUTH FOR PT TO GO TO [facility]. SW TO SET UP TRANSPORT. SECURE CHAT WITH DR CANSECO FOR DC ORDERS. TASKED CAM TO SEND DC PAPERWORK TO [facility]. BEDSIDE NURSE ALSO AWARE DISCHARGING TODAY. Normal [facility] CARECOORD Normal [facility] CBC W Auto Differential pane l (Bld)on 10-12-2023 Basophils (Bld) [#/Vol] 0.0 10*3/uL 0.0 - 0.2 10*3/uL [facility] Basophils/100 WBC (Bld) 0.3 % 0.0 - 2.0 % [facility] Eosinophils (Bld) [#/Vol] 0.2 10*3/uL 0.0 - 0.5 10*3/uL [facility] Eosinophils/100 WBC (Bld) 2.1 % 0.0 - 6.0 % [facility] Erythrocyte distribution width (RBC) [Ratio] 14.8 % 11.5 - 15.0 % [facility] Hematocrit (Bld) [Volume fraction] 22.9 % Low 35.0 - 47.0 % [facility] Hemoglobin (Bld) [Mass/Vol] 7.2 g/dL Low 11.7 - 16.0 g/dL [facility] Immature granulocytes (Bld) [#/Vol] 0.0 10*3/uL NINF - 0.1 10*3/uL [facility] Immature granulocytes/100 WBC (Bld) 0.4 % 0.0 - 2.0 % [facility] Interpretation and review of laboratory results Abnormal [facility] Lymphocytes (Bld) [#/Vol] 1.7 10*3/uL 1.0 - 4.3 10*3/uL [facility] Lymphocytes/100 WBC (Bld) 17.9 % 15.0 - 45.0 % [facility] MCH (RBC) [Entitic mass] 29.6 pg 26.0 - 34.0 pg [facility] MCHC (RBC) [Mass/Vol] 31.4 % 30.5 - 36.0 % [facility] MCV (RBC) [Entitic vol] 94.2 fL 77.0 - 99.0 fL [facility] Monocytes (Bld) [#/Vol] 0.9 10*3/uL 0.0 - 0.9 10*3/uL [facility] Monocytes/100 WBC (Bld) 8.8 % 5.0 - 13.0 % [facility] Neutrophils (Bld) [#/Vol] 6.9 10*3/uL 1.8 - 7.5 10*3/uL [facility] Neutrophils/100 WBC (Bld) 70.5 % 38.0 - 82.0 % [facility] Nucleated RBC/100 WBC (Bld) [Ratio] 0.0 % [facility] Platelet mean volume (Bld) [Entitic vol] 10.9 fL 9.0 - 12.7 fL [facility] Platelets (Bld) [#/Vol] 254 10*3/uL 140 - 440 10*3/uL [facility] RBC (Bld) [#/Vol] 2.43 10*6/uL Low 3.80 - 5.2 0 10*6/uL [facility] WBC (Bld) [#/Vol] 9.7 10*3/uL 3.6 - 10.7 10*3/uL [facility] CBC WITH AUTO DIFFERENTIALon 10-12-2023 Basophils (Bld) [#/Vol] 0.0 10*3/uL Normal 0.0-0.2 [facility] Comment on above: Performed By: #### L [id number] ####Vp Medical: ROSALVA LOPZE ([id number])[facility])[address] [place] [address] Basophils/100 WBC (Bld) 0.3 % Normal 0.0-2.0 [facility] Comment on above: Performed By: #### L [id number] ####Vp Medical: ROSALVA LOPEZ ([id number])[facility])[address] [place] [address] [place] Eosinophils (Bld) [#/Vol] 0.2 10*3/uL Normal 0.0-0.5 [facility] Comment on above: Performed By: #### L [id number] ####Vp Medical: ROSALVA [id number])[facility])[address] [place] [address] [place] Eosinophils/100 WBC (Bld) 2.1 % Normal 0.0-6.0 [facility] Comment on above: Performed By: #### L [id number] ####Vp Medical: ROSALVA [id number])[facility])[address] [place] [address] Erythrocyte distribution width (RBC) [Ratio] 14.8 % Normal 11.5-15.0 [facility] Comment on above: Performed By: #### L [id number] ####Vp Medical: ROSALVA LOPEZ ([id number])[facility])[address] [place] [address] Hematocrit (Bld) [Volume fraction] 22.9 % Low 35.0-47.0 [facility] Comment on above: Performed By: #### L [id number] ####Vp Medical: ROSALVA LOPEZ ([id number])[facility])[address] [place] [address] Hemoglobin (Bld) [Mass/Vol] 7.2 g/dL Low 11.7-16.0 [facility] Comment on above: Performed By: #### L [id number] ####Vp Medical: ROSALVA LOPEZ ([id number])[facility] ([facility])[address] [place] [address] IMMATURE GRANS % 0.4 % Normal 0.0-2.0 [facility] Comment on above: Performed By: #### L [id number] ####Vp Medical: ROSALVA LOPEZ ([id number])[facility])[address] [place] [address] IMMATURE GRANS ABSOLUTE 0.0 10*3/uL Normal <0.1 [facility] Comment on above: Performed By: #### L [id number] ####Vp Medical: ROSALVA LOPEZ ([id number])[facility] ([facility])[address] [place] [address] Lymphocytes (Bld) [#/Vol] 1.7 10*3/uL Normal 1.0-4.3 [facility] Comment on above: Performed By: #### L [id number] ####Vp Medical: ROSALVA LOPEZ ([id number])[facility])[address] [place] [address] [place] Lymphocytes/100 WBC (Bld) 17.9 % Normal 15.0-45.0 [facility] Comment on above: Performed By: #### L [id number] ####Vp Medical: ROSALVA LOPEZ ([id number])[facility])[address] [place] [address] MCH (RBC) [Entitic mass] 29.6 pg Normal 26.0-34.0 [facility] Comment on above: Performed By: #### L [id number] ####Vp Medical: ROSALVA LOPEZ ([id number])[facility])[address] [place] [address] MCHC 31.4 % Normal 30.5-36.0 [facility] Comment on above: Performed By: #### L [id number] ####Vp Medical: ROSALVA LOPEZ ([id number])[facility])[address] [place] [address] MCV (RBC) [Entitic vol] 94.2 fL Normal 77.0-99.0 [facility] Comment on above: Performed By: #### L [id number] ####Vp Medical: ROSALVA LOPEZ ([id number])[facility])[address] [place] [address] Monocytes (Bld) [#/Vol] 0.9 10*3/uL Normal 0.0-0.9 [facility] Comment on above: Performed By: #### L [id number] ####Vp Medical: ROSALVA LOPEZ ([id number])[facility])[address] [place] [address] Monocytes/100 WBC (Bld) 8.8 % Normal 5.0-13.0 [facility] Comment on above: Performed By: #### L [id number] ####Vp Medical: ROSALVA LOPEZ ([id number])[facility])[address] [place] [address] NEUTROPHILS ABSOLUTE 6.9 10*3/uL Normal 1.8-7.5 [facility] Comment on above: Performed By: #### L [id number] ####Vp Medical: ROSALVA LOPEZ ([id number])[facility] ([facility])[address] [place] [address] Neutrophils/100 WBC (Bld) 70.5 % Normal 38.0-82.0 [facility] Comment on above: Performed By: #### L [id number] ####Vp Medical: ROSALVA LOPEZ ([id number])[facility])[address] [place] [address] NRBC 0.0 /100 WBCs Normal 0.0-2.0 [facility] Comment on above: Performed By: #### L [id number] ####Vp Medical: ROSALVA LOPEZ ([id number])[facility])[address] [place] [address] Platelet mean volume (Bld) [Entitic vol] 10.9 fL Normal 9.0-12.7 [facility] Comment on above: Performed By: #### L [id number] ####Vp Medical: ROSALVA LOPEZ ([id number])[facility] ([facility])[address] [place] [address] Platelets (Bld) [#/Vol] 254 10*3/uL Normal 140-440 [facility] Comment on above: Performed By: #### L [id number] ####Vp Medical: ROSALVA LOPEZ ([id number])[facility])[address] [place] [address] RBC (Bld) [#/Vol] 2.43 10*6/uL Low 3.80-5.20 [facility] Comment on above: Performed By: #### L [id number] ####Vp Medical: ROSALVA LOPEZ ([id number])[facility])[address] [place] [address] WBC (Bld) [#/Vol] 9.7 10*3/uL Normal 3.6-10.7 [facility] Comment on above: Performed By: #### L [id number] ####Vp Medical: ROSALVA LOPEZ ([id number])[facility] ([facility])[address] [place] [address] Laboratory - Chemistry and C hemistry - challengeon 10-12-2023 Magnesium [Mass/Vol] 2.2 mg/dL 1.6 - 2 .3 mg/dL [facility] MAGNESIUMon 10-12-2023 Magnesium [Mass/Vol] 2.2 mg/dL Normal 1.6-2.3 [facility] Comment on above: Performed By: #### L AB15, [id number] ####Vp Medical: ROSALVA LOPEZ ([id number])[facility] ([facility])[address] [place] [address] Magnesium [Mass/Vol]on 10-11 Interpretation and review of laboratory results Normal [facility] No Panel Informationon 10-11 [facility] Progress Noteon 10-12-2023 Progress Note Normal [facility] Progress Note Attempted treatment. Pt wished to rest prior to her discharge today at 4pm. Will continue to follow Normal [facility] Progress Note Normal [facility] Progress Note Pt is working with O T at this time. Will continue to follow Normal [facility] Progress Note Normal [facility] Progress Note Normal [facility] Progress Note Normal [facility] Progress Note Ps trial started Normal [facility] BASIC METABOLIC PANELon Anion gap [Moles/Vol] 9 mmol/L Normal 3-13 [facility] Comment on above: Performed By: #### L AB15, [id number] ####Vp Medical: ROSALVA LOPEZ ([id number])[facility] [place] [address] Calcium [Mass/Vol] 9.1 mg/dL Normal 8.4-10.4 [facility] Comment on above: Performed By: #### L AB15, [id number] ####Vp Medical: ROSALVA LOPEZ ([id number])[facility] ([facility])[address] [place] [address] Chloride [Moles/Vol] 100 mmol/L Normal 98-107 [facility] Comment on above: Performed By: #### L AB15, [id number] ####Vp Medical: ROSALVA LOPEZ ([id number])[facility])[address] [place] [address] CO2 [Moles/Vol] 34 mmol/L High 22-30 [facility] Comment on above: Performed By: #### L AB15, [id number] ####Vp Medical: ROSALVA LOPEZ ([id number])[facility] ([facility])[address] [place] [address] Creatinine [Mass/Vol] 0.55 mg/dL Normal 0.52-1.04 [facility] Comment on above: Performed By: #### L AB15, [id number] ####Vp Medical: ROSALVA LOPEZ ([id number])[facility])[address] [place] [address] GLOMERULAR FILTRATION RATE ML/MIN/1.73 SQ M.PREDICTED >90.0 Normal >60.0 [facility] Comment on above: Result Comment: Calc ulation based on the Chronic Kidney Disease Epidemiology Collaboration (CKD-EPI) equation refit without adjustment for race Performed By: #### L AB15, [id number] ####Vp Medical: ROSALVA LOPEZ ([id number])[facility] ([facility])[address] [place] [address] Glucose [Mass/Vol] 97 mg/dL Normal 70-100 [facility] Comment on above: Performed By: #### L AB15, [id number] ####Vp Medical: ROSALVA LOPEZ ([id number])[facility] ([facility])[address] [place] [address] [place] Potassium [Moles/Vol] 3.5 mmol/L Normal 3.5-5.1 [facility] Comment on above: Performed By: #### L AB15, [id number] ####Vp Medical: ROSALVA LOPEZ ([id number])[facility])[address] [place] [address] [place] Sodium [Moles/Vol] 143 mmol/L Normal 135-145 [facility] Comment on above: Performed By: #### L [id number], [id number] ####[facility]: ROSALVA LOPEZ ([id number])[facility] ([facility])[address] [place] [address] Urea nitrogen [Mass/Vol] 31 mg/dL High 7-17 [facility] Comment on above: Performed By: #### L [id number], [id number] ####[facility]: ROSALVA LOPEZ ([id number])[facility] ([facility])[address] [place] [address] Basic metabolic 1998 panelon 10-11-2023 Anion gap [Moles/Vol] 9 mmol/L 3 - 13 mmol/L [facility] Calcium [Mass/Vol] 9.1 mg/dL 8.4 - 10. 4 mg/dL [facility] Chloride [Moles/Vol] 100 mmol/L 98 - 10 7 mmol/L [facility] CO2 [Moles/Vol] 34 mmol/L High 22 - 30 mmol/L [facility] Creatinine [Mass/Vol] 0.55 mg/dL 0.52 - 1.04 mg/dL [facility] GFR/1.73 sq M.predicted MDRD (S/P/Bld) [Vol rate/Area] - PINF [facility] Glucose [Mass/Vol] 97 mg/dL 70 - 100 mg/dL [facility] Interpretation and review of laboratory results Abnormal [facility] Potassium [Moles/Vol] 3.5 mmol/L 3.5 - 5.1 mmol/L [facility] Sodium [Moles/Vol] 143 mmol/L 135 - 145 mmol/L [facility] Urea nitrogen [Mass/Vol] 31 mg/dL High 7 - 17 mg/dL [facility] CARECOORDon 10-11-2023 CARECOORD Normal [facility] CBC W Auto Differential pane l (Bld)on 10-11-2023 Basophils (Bld) [#/Vol] 0.0 10*3/uL 0.0 - 0.2 10*3/uL [facility] Basophils/100 WBC (Bld) 0.3 % 0.0 - 2.0 % [facility] Eosinophils (Bld) [#/Vol] 0.2 10*3/uL 0.0 - 0.5 10*3/uL [facility] Eosinophils/100 WBC (Bld) 1.6 % 0.0 - 6.0 % [facility] Erythrocyte distribution width (RBC) [Ratio] 14.8 % 11.5 - 15.0 % [facility] Hematocrit (Bld) [Volume fraction] 23.4 % Low 35.0 - 47.0 % [facility] Hemoglobin (Bld) [Mass/Vol] 7.2 g/dL Low 11.7 - 16.0 g/dL [facility] Immature granulocytes (Bld) [#/Vol] 0.1 10*3/uL High NINF - 0.1 10*3/uL [facility] Immature granulocytes/100 WBC (Bld) 0.4 % 0.0 - 2.0 % [facility] Interpretation and review of laboratory results Abnormal [facility] Lymphocytes (Bld) [#/Vol] 1.8 10*3/uL 1.0 - 4.3 10*3/uL [facility] Lymphocytes/100 WBC (Bld) 15.7 % 15.0 - 45.0 % [facility] MCH (RBC) [Entitic mass] 29.1 pg 26.0 - 34.0 pg [facility] MCHC (RBC) [Mass/Vol] 30.8 % 30.5 - 36.0 % [facility] MCV (RBC) [Entitic vol] 94.7 fL 77.0 - 99.0 fL [facility] Monocytes (Bld) [#/Vol] 0.8 10*3/uL 0.0 - 0.9 10*3/uL [facility] Monocytes/100 WBC (Bld) 7.2 % 5.0 - 13.0 % [facility] Neutrophils (Bld) [#/Vol] 8.4 10*3/uL High 1.8 - 7.5 10*3/uL [facility] Neutrophils/100 WBC (Bld) 74.8 % 38.0 - 82.0 % [facility] Nucleated RBC/100 WBC (Bld) [Ratio] 0.0 % [facility] Platelet mean volume (Bld) [Entitic vol] 10.9 fL 9.0 - 12.7 fL [facility] Platelets (Bld) [#/Vol] 270 10*3/uL 140 - 440 10*3/uL [facility] RBC (Bld) [#/Vol] 2.47 10*6/uL Low 3.80 - 5.2 0 10*6/uL [facility] WBC (Bld) [#/Vol] 11.2 10*3/uL High 3.6 - 10.7 10*3/uL [facility] CBC WITH AUTO DIFFERENTIALon 10-11-2023 Basophils (Bld) [#/Vol] 0.0 10*3/uL Normal 0.0-0.2 [facility] Comment on above: Performed By: #### L [id number] ####Vp Medical: ROSALVA LOPEZ ([id number])[facility])[address] [place] [address] Basophils/100 WBC (Bld) 0.3 % Normal 0.0-2.0 [facility] Comment on above: Performed By: #### L [id number] ####V[facility] Medical: ROSALVA LOPEZ ([id number])[facility] ([facility])[address] [place] [address] Eosinophils (Bld) [#/Vol] 0.2 10*3/uL Normal 0.0-0.5 [facility] Comment on above: Performed By: #### L [id number] ####Vp Medical: ROSALVA LOPEZ ([id number])[facility])[address] [place] [address] Eosinophils/100 WBC (Bld) 1.6 % Normal 0.0-6.0 [facility] Comment on above: Performed By: #### L [id number] ####Vp Medical: ROSALVA LOPEZ ([id number])[facility])[address] [place] [address] Erythrocyte distribution width (RBC) [Ratio] 14.8 % Normal 11.5-15.0 [facility] Comment on above: Performed By: #### L [id number] ####Vp Medical: ROSALVA LOPEZ ([id number])[facility])[address] [place] [address] Hematocrit (Bld) [Volume fraction] 23.4 % Low 35.0-47.0 [facility] Comment on above: Performed By: #### L [id number] ####Vp Medical: ROSALVA LOPEZ ([id number])[facility])[address] [place] [address] Hemoglobin (Bld) [Mass/Vol] 7.2 g/dL Low 11.7-16.0 [facility] Comment on above: Performed By: #### L [id number] ####Vp Medical: ROSALVA LOPEZ ([id number])[facility])[address] [place] [address] IMMATURE GRANS % 0.4 % Normal 0.0-2.0 [facility] Comment on above: Performed By: #### L [id number] ####Vp Medical: ROSALVA LOPEZ ([id number])[facility])[address] [place] [address] IMMATURE GRANS ABSOLUTE 0.1 10*3/uL High <0.1 [facility] Comment on above: Performed By: #### L [id number] ####Vp Medical: ROSALVA LOPEZ ([id number])[facility])[address] [place] [address] Lymphocytes (Bld) [#/Vol] 1.8 10*3/uL Normal 1.0-4.3 [facility] Comment on above: Performed By: #### L [id number] ####Vp Medical: ROSALVA LOPEZ ([id number])[facility])[address] [place] [address] Lymphocytes/100 WBC (Bld) 15.7 % Normal 15.0-45.0 [facility] Comment on above: Performed By: #### L [id number] ####Vp Medical: ROSALVA LOPEZ ([id number])[facility])[address] [place] [address] MCH (RBC) [Entitic mass] 29.1 pg Normal 26.0-34.0 [facility] Comment on above: Performed By: #### L [id number] ####Vp Medical: ROSALVA LOPEZ ([id number])[facility])[address] [place] [address] MCHC 30.8 % Normal 30.5-36.0 [facility] Comment on above: Performed By: #### L [id number] ####Vp Medical: ROSALVA LOPEZ ([id number])[facility])[address] [place] [address] MCV (RBC) [Entitic vol] 94.7 fL Normal 77.0-99.0 [facility] Comment on above: Performed By: #### L [id number] ####Vp Medical: ROSALVA LOPEZ ([id number])[facility])[address] [place] [address] Monocytes (Bld) [#/Vol] 0.8 10*3/uL Normal 0.0-0.9 [facility] Comment on above: Performed By: #### L [id number] ####Vp Medical: ROSALVA LOPEZ ([id number])[facility])[address] [place] [address] Monocytes/100 WBC (Bld) 7.2 % Normal 5.0-13.0 [facility] Comment on above: Performed By: #### L [id number] ####Vp Medical: ROSALVA LOPEZ ([id number])[facility])[address] [place] [address] NEUTROPHILS ABSOLUTE 8.4 10*3/uL High 1.8-7.5 [facility] Comment on above: Performed By: #### L [id number] ####Vp Medical: ROSALVA LOPEZ ([id number])[facility])[address] [place] [address] Neutrophils/100 WBC (Bld) 74.8 % Normal 38.0-82.0 [facility] Comment on above: Performed By: #### L [id number] ####Vp Medical: ROSALVA LOPEZ ([id number])[facility] ([facility])[address] [place] [address] NRBC 0.0 /100 WBCs Normal 0.0-2.0 [facility] Comment on above: Performed By: #### L [id number] ####Vp Medical: ROSALVA LOPEZ ([id number])[facility])[address] [place] [address] Platelet mean volume (Bld) [Entitic vol] 10.9 fL Normal 9.0-12.7 [facility] Comment on above: Performed By: #### L [id number] ####Vp Medical: ROSALVA LOPEZ ([id number])[facility])[address] [place] [address] Platelets (Bld) [#/Vol] 270 10*3/uL Normal 140-440 [facility] Comment on above: Performed By: #### L [id number] ####Vp Medical: ROSALVA LOPEZ ([id number])[facility] ([facility])[address] [place] [address] RBC (Bld) [#/Vol] 2.47 10*6/uL Low 3.80-5.20 [facility] Comment on above: Performed By: #### L [id number] ####Vp Medical: ROSALVA LOPEZ ([id number])[facility])[address] [place] [address] WBC (Bld) [#/Vol] 11.2 10*3/uL High 3.6-10.7 [facility] Comment on above: Performed By: #### L [id number] ####Vp Medical: ROSALVA LOPEZ ([id number])[facility])[address] [place] [address] Laboratory - Chemistry and C hemistry - challengeon 10-11-2023 Magnesium [Mass/Vol] 2.2 mg/dL 1.6 - 2 .3 mg/dL [facility] MAGNESIUMon 10-11-2023 Magnesium [Mass/Vol] 2.2 mg/dL Normal 1.6-2.3 [facility] Comment on above: Performed By: #### L [id number], [id number] ####Vp Medical: ROSALVA LOPEZ ([id number])[facility])[address] [place] [address] Magnesium [Mass/Vol]on 10-10 Interpretation and review of laboratory results Normal [facility] No Panel Informationon 10-10 [facility] Progress Noteon 10-11-2023 Progress Note Normal [facility] Progress Note Normal [facility] Progress Note Normal [facility] Progress Note Normal [facility] Progress Note Normal [facility] BASIC METABOLIC PANELon Anion gap [Moles/Vol] 10 mmol/L Normal 3-13 [facility] Comment on above: Performed By: #### L [id number], LAB15 ####Vp Medical: ROSALVA LOPEZ ([id number])[facility])[address] [place] [address] Calcium [Mass/Vol] 9.8 mg/dL Normal 8.4-10.4 [facility] Comment on above: Performed By: #### L AB103, LAB15 ####Vp Medical: ROSALVA LOPEZ ([id number])[facility])[address] [place] [address] Chloride [Moles/Vol] 97 mmol/L Low 98-107 [facility] Comment on above: Performed By: #### L AB103, LAB15 ####Vp Medical: ROSALVA LOPEZ ([id number])[facility])[address] [place] [address] CO2 [Moles/Vol] 35 mmol/L High 22-30 [facility] Comment on above: Performed By: #### L AB103, LAB15 ####Vp Medical: ROSALVA LOPEZ ([id number])[facility])[address] [place] [address] Creatinine [Mass/Vol] 0.55 mg/dL Normal 0.52-1.04 [facility] Comment on above: Performed By: #### L AB103, LAB15 ####Vp Medical: ROSALVA LOPEZ ([id number])[facility])[address] [place] [address] GLOMERULAR FILTRATION RATE ML/MIN/1.73 SQ M.PREDICTED >90.0 Normal >60.0 [facility] Comment on above: Result Comment: Calc ulation based on the Chronic Kidney Disease Epidemiology Collaboration (CKD-EPI) equation refit without adjustment for race Performed By: #### L AB103, LAB15 ####Vp Medical: ROSALVA LOPEZ ([id number])[facility] ([facility])[address] [place] [address] Glucose [Mass/Vol] 103 mg/dL High 70-100 [facility] Comment on above: Performed By: #### L AB103, LAB15 ####Vp Medical: ROSALVA LOPEZ ([id number])[facility])[address] [place] [address] Potassium [Moles/Vol] 3.7 mmol/L Normal 3.5-5.1 [facility] Comment on above: Performed By: #### L AB103, LAB15 ####Vp Medical: ROSALVA LOPEZ ([id number])[facility] ([facility])[address] [place] [address] Sodium [Moles/Vol] 142 mmol/L Normal 135-145 [facility] Comment on above: Performed By: #### L AB103, LAB15 ####Vp Medical: ROSALVA LOPEZ ([id number])[facility] ([facility])[address] [place] [address] Urea nitrogen [Mass/Vol] 33 mg/dL High 7-17 [facility] Comment on above: Performed By: #### L AB103, LAB15 ####Vp Medical: ROSALVA LOPEZ ([id number])[facility])[address] [place] [address] Basic metabolic 1998 panelon 10-10-2023 Anion gap [Moles/Vol] 10 mmol/L 3 - 13 mmol/L [facility] Calcium [Mass/Vol] 9.8 mg/dL 8.4 - 10. 4 mg/dL [facility] Chloride [Moles/Vol] 97 mmol/L Low 98 - 10 7 mmol/L [facility] CO2 [Moles/Vol] 35 mmol/L High 22 - 30 mmol/L [facility] Creatinine [Mass/Vol] 0.55 mg/dL 0.52 - 1.04 mg/dL [facility] GFR/1.73 sq M.predicted MDRD (S/P/Bld) [Vol rate/Area] - PINF [facility] Glucose [Mass/Vol] 103 mg/dL High 70 - 100 mg/dL [facility] Interpretation and review of laboratory results Abnormal [facility] Potassium [Moles/Vol] 3.7 mmol/L 3.5 - 5.1 mmol/L [facility] Sodium [Moles/Vol] 142 mmol/L 135 - 145 mmol/L [facility] Urea nitrogen [Mass/Vol] 33 mg/dL High 7 - 17 mg/dL [facility] CBC W Auto Differential pane l (Bld)on 10-10-2023 Basophils (Bld) [#/Vol] 0.0 10*3/uL 0.0 - 0.2 10*3/uL [facility] Basophils/100 WBC (Bld) 0.3 % 0.0 - 2.0 % [facility] Eosinophils (Bld) [#/Vol] 0.1 10*3/uL 0.0 - 0.5 10*3/uL [facility] Eosinophils/100 WBC (Bld) 1.1 % 0.0 - 6.0 % [facility] Erythrocyte distribution width (RBC) [Ratio] 15.1 % High 11.5 - 15.0 % [facility] Hematocrit (Bld) [Volume fraction] 23.1 % Low 35.0 - 47.0 % [facility] Hemoglobin (Bld) [Mass/Vol] 7.3 g/dL Low 11.7 - 16.0 g/dL [facility] Immature granulocytes (Bld) [#/Vol] 0.1 10*3/uL High NINF - 0.1 10*3/uL [facility] Immature granulocytes/100 WBC (Bld) 0.6 % 0.0 - 2.0 % [facility] Interpretation and review of laboratory results Abnormal [facility] Lymphocytes (Bld) [#/Vol] 1.5 10*3/uL 1.0 - 4.3 10*3/uL [facility] Lymphocytes/100 WBC (Bld) 15.9 % 15.0 - 45.0 % [facility] MCH (RBC) [Entitic mass] 29.6 pg 26.0 - 34.0 pg [facility] MCHC (RBC) [Mass/Vol] 31.6 % 30.5 - 36.0 % [facility] MCV (RBC) [Entitic vol] 93.5 fL 77.0 - 99.0 fL [facility] Monocytes (Bld) [#/Vol] 0.7 10*3/uL 0.0 - 0.9 10*3/uL [facility] Monocytes/100 WBC (Bld) 7.3 % 5.0 - 13.0 % [facility] Neutrophils (Bld) [#/Vol] 7.1 10*3/uL 1.8 - 7.5 10*3/uL [facility] Neutrophils/100 WBC (Bld) 74.8 % 38.0 - 82.0 % [facility] Nucleated RBC/100 WBC (Bld) [Ratio] 0.0 % [facility] Platelet mean volume (Bld) [Entitic vol] 11.0 fL 9.0 - 12.7 fL [facility] Platelets (Bld) [#/Vol] 273 10*3/uL 140 - 440 10*3/uL [facility] RBC (Bld) [#/Vol] 2.47 10*6/uL Low 3.80 - 5.2 0 10*6/uL [facility] WBC (Bld) [#/Vol] 9.5 10*3/uL 3.6 - 10.7 10*3/uL [facility] CBC WITH AUTO DIFFERENTIALon 10-10-2023 Basophils (Bld) [#/Vol] 0.0 10*3/uL Normal 0.0-0.2 [facility] Comment on above: Performed By: #### L [id number] ####Vp Medical: ROSALVA LOPEZ ([id number])[facility] ([address] Basophils/100 WBC (Bld) 0.3 % Normal 0.0-2.0 [facility] Comment on above: Performed By: #### L [id number] ####Vp Medical: ROSALVA LOPEZ ([id number])[address] Eosinophils (Bld) [#/Vol] 0.1 10*3/uL Normal 0.0-0.5 [facility] Comment on above: Performed By: #### L [id number] ####Vp Medical: ROSALVA LOPEZ ([id number])[address] Eosinophils/100 WBC (Bld) 1.1 % Normal 0.0-6.0 [facility] Comment on above: Performed By: #### L [id number] ####Vp Medical: ROSALVA LOPEZ ([id number])[address] Erythrocyte distribution width (RBC) [Ratio] 15.1 % High 11.5-15.0 [facility] Comment on above: Performed By: #### L [id number] ####Vp Medical: ROSALVA LOPEZ ([id number])[address] Hematocrit (Bld) [Volume fraction] 23.1 % Low 35.0-47.0 [facility] Comment on above: Performed By: #### L [id number] ####Vp Medical: ROSALVA LOPEZ ([id number])[address] Hemoglobin (Bld) [Mass/Vol] 7.3 g/dL Low 11.7-16.0 [facility] Comment on above: Performed By: #### L [id number] ####Vp Medical: ROSALVA LOPEZ ([id number])[address] IMMATURE GRANS % 0.6 % Normal 0.0-2.0 [facility] Comment on above: Performed By: #### L [id number] ####Vp Medical: ROSALVA LOPEZ ([id number])[facility] [place] [address] IMMATURE GRANS ABSOLUTE 0.1 10*3/uL High <0.1 [facility] Comment on above: Performed By: #### L [id number] ####Vp Medical: ROSALVA LOPEZ ([id number])[facility])[address] [place] [address] Lymphocytes (Bld) [#/Vol] 1.5 10*3/uL Normal 1.0-4.3 [facility] Comment on above: Performed By: #### L [id number] ####Vp Medical: ROSALVA LOPEZ ([id number])[facility])[address] [place] [address] Lymphocytes/100 WBC (Bld) 15.9 % Normal 15.0-45.0 [facility] Comment on above: Performed By: #### L [id number] ####Vp Medical: ROSALVA LOPEZ ([id number])[facility])[address] [place] [address] MCH (RBC) [Entitic mass] 29.6 pg Normal 26.0-34.0 [facility] Comment on above: Performed By: #### L [id number] ####Vp Medical: ROSALVA LOPEZ ([id number])[facility])[address] [place] [address] MCHC 31.6 % Normal 30.5-36.0 [facility] Comment on above: Performed By: #### L [id number] ####Vp Medical: ROSALVA LOPEZ ([id number])[facility])[address] [place] [address] MCV (RBC) [Entitic vol] 93.5 fL Normal 77.0-99.0 [facility] Comment on above: Performed By: #### L [id number] ####Vp Medical: ROSALVA LOPEZ ([id number])[facility])[address] [place] [address] Monocytes (Bld) [#/Vol] 0.7 10*3/uL Normal 0.0-0.9 [facility] Comment on above: Performed By: #### L [id number] ####Vp Medical: ROSALVA LOPEZ ([id number])[facility] ([facility])[address] [place] [address] Monocytes/100 WBC (Bld) 7.3 % Normal 5.0-13.0 [facility] Comment on above: Performed By: #### L [id number] ####Vp Medical: ROSALVA LOPEZ ([id number])[facility] ([facility])[address] [place] [address] NEUTROPHILS ABSOLUTE 7.1 10*3/uL Normal 1.8-7.5 [facility] Comment on above: Performed By: #### L [id number] ####Vp Medical: ROSALVA LOPEZ ([id number])[facility] ([facility])[address] [place] [address] Neutrophils/100 WBC (Bld) 74.8 % Normal 38.0-82.0 [facility] Comment on above: Performed By: #### L [id number] ####Vp Medical: ROSALVA LOPEZ ([id number])[facility] ([facility])[address] [place] [address] NRBC 0.0 /100 WBCs Normal 0.0-2.0 [facility] Comment on above: Performed By: #### L [id number] ####Vp Medical: ROSALVA LOPEZ ([id number])[facility] ([facility])[address] [place] [address] Platelet mean volume (Bld) [Entitic vol] 11.0 fL Normal 9.0-12.7 [facility] Comment on above: Performed By: #### L [id number] ####Vp Medical: ROSALVA LOPEZ ([id number])[facility] ([facility])[address] [place] [address] Platelets (Bld) [#/Vol] 273 10*3/uL Normal 140-440 [facility] Comment on above: Performed By: #### L [id number] ####Vp Medical: ROSALVA LOPEZ ([id number])[facility] ([facility])[address] [place] [address] RBC (Bld) [#/Vol] 2.47 10*6/uL Low 3.80-5.20 [facility] Comment on above: Performed By: #### L [id number] ####Vp Medical: ROSALVA LOPEZ ([id number])[facility])[address] [place] [address] WBC (Bld) [#/Vol] 9.5 10*3/uL Normal 3.6-10.7 [facility] Comment on above: Performed By: #### L [id number] ####Vp Medical: ROSALVA LOPEZ ([id number])[facility] ([facility])[address] [place] [address] Laboratory - Chemistry and C hemistry - challengeon 10-10-2023 Magnesium [Mass/Vol] 2.0 mg/dL 1.6 - 2 .3 mg/dL [facility] MAGNESIUMon 10-10-2023 Magnesium [Mass/Vol] 2.0 mg/dL Normal 1.6-2.3 [facility] Comment on above: Performed By: #### L AB103, LAB15 ####Vp Medical: ROSALVA LOPEZ ([id number])[facility])[address] [place] [address] Magnesium [Mass/Vol]on 10-09 Interpretation and review of laboratory results Normal [facility] Panel Informationon 10-09 [facility] Nursing Noteon 10-10-2023 Nursing Note Pt complaining of significant pain around peg site. While assessing abdomen patient grimacing in pain. TF stopped. Dr. Doug jain. New orders placed for IV pain medication and xray of abdomen. Awaiting results. Normal [facility] Nursing Note Normal [facility] Progress Noteon 10-10-2023 Progress Note Normal [facility] Progress Note Normal [facility] XR ABDOMEN 1 VIEWon 10-10-19 XR ABDOMEN 1 VIEW Normal [facility] XR Abdomen Single viewon [facility] RADIOLOGY [facility] Radiology Study observation (narrative) [facility] [employer] XR Abdomen Single viewOrdere d By: Annia Wagner on 10-10-2023 [facility] [employer] Work Phone: BASIC METABOLIC PANELon 04-0 Anion gap [Moles/Vol] 12 mmol/L Normal 3-13 [facility] Comment on above: Performed By: #### L [id number], [id number] ####[facility]: ROSALVA LOPEZ ([id number])[facility] ([facility])[address] [place] [address] Calcium [Mass/Vol] 10.4 mg/dL Normal 8.4-10.4 [facility] Comment on above: Performed By: #### L AB15, [id number] ####[facility] [employer]: ROSALVA LOPEZ ([id number])[facility])[address] [place] [address] Chloride [Moles/Vol] 100 mmol/L Normal 98-107 [facility] Comment on above: Performed By: #### L AB15, [id number] ####[facility]: ROSALVA LOPEZ ([id number])[facility])[address] [place] [address] CO2 [Moles/Vol] 32 mmol/L High 22-30 [facility] Comment on above: Performed By: #### L AB15, [id number] ####[facility]: ROSALVA LOPEZ ([id number])[facility])[address] [place] [address] Creatinine [Mass/Vol] 0.59 mg/dL Normal 0.52-1.04 [facility] Comment on above: Performed By: #### L AB15, [id number] ####[facility]: ROSALVA LOPEZ ([id number])[facility])[address] [place] [place] [address] GLOMERULAR FILTRATION RATE ML/MIN/1.73 SQ M.PREDICTED >90.0 Normal >60.0 [facility] Comment on above: Result Comment: Calc ulation based on the Chronic Kidney Disease Epidemiology Collaboration (CKD-EPI) equation refit without adjustment for race Performed By: #### L AB15, [id number] ####[facility]: ROSALVA LOPEZ ([id number])[facility] ([facility])[address] [place] [address] Glucose [Mass/Vol] 93 mg/dL Normal 70-100 [facility] Comment on above: Performed By: #### L AB15, [id number] ####[facility]: ROSALVA LOPEZ ([id number])[facility] ([facility])[address] [place] [address] Potassium [Moles/Vol] 4.2 mmol/L Normal 3.5-5.1 [facility] Comment on above: Performed By: #### L AB15, [id number] ####[facility] Medical: ROSALVA LOPEZ ([id number])[facility])[address] [place] [address] Sodium [Moles/Vol] 145 mmol/L Normal 135-145 [facility] Comment on above: Performed By: #### L AB15, [id number] ####Vp Medical: ROSALVA LOPEZ ([id number])[facility] ([facility])[address] [place] [address] Urea nitrogen [Mass/Vol] 31 mg/dL High 7-17 [facility] Comment on above: Performed By: #### L AB15, [id number] ####Vp Medical: ROSALVA LOPEZ ([id number])[facility])[address] [place] [address] Basic metabolic 1998 panelon 10-09-2023 Anion gap [Moles/Vol] 12 mmol/L 3 - 13 mmol/L [facility] Calcium [Mass/Vol] 10.4 mg/dL 8.4 - 10. 4 mg/dL [facility] Chloride [Moles/Vol] 100 mmol/L 98 - 10 7 mmol/L [facility] CO2 [Moles/Vol] 32 mmol/L High 22 - 30 mmol/L [facility] Creatinine [Mass/Vol] 0.59 mg/dL 0.52 - 1.04 mg/dL [facility] GFR/1.73 sq M.predicted MDRD (S/P/Bld) [Vol rate/Area] - PINF [facility] Glucose [Mass/Vol] 93 mg/dL 70 - 100 mg/dL [facility] Interpretation and review of laboratory results Abnormal [facility] Potassium [Moles/Vol] 4.2 mmol/L 3.5 - 5.1 mmol/L [facility] Sodium [Moles/Vol] 145 mmol/L 135 - 145 mmol/L [facility] Urea nitrogen [Mass/Vol] 31 mg/dL High 7 - 17 mg/dL [facility] CARECOORDon 10-09-2023 [place] Normal [facility] CBC W Auto Differential pane l (Bld)on 10-09-2023 Basophils (Bld) [#/Vol] 0.0 10*3/uL 0.0 - 0.2 10*3/uL [facility] Basophils/100 WBC (Bld) 0.3 % 0.0 - 2.0 % [facility] Eosinophils (Bld) [#/Vol] 0.2 10*3/uL 0.0 - 0.5 10*3/uL [facility] Eosinophils/100 WBC (Bld) 1.7 % 0.0 - 6.0 % [facility] Erythrocyte distribution width (RBC) [Ratio] 15.4 % High 11.5 - 15.0 % [facility] Hematocrit (Bld) [Volume fraction] 26.8 % Low 35.0 - 47.0 % [facility] Hemoglobin (Bld) [Mass/Vol] 8.3 g/dL Low 11.7 - 16.0 g/dL [facility] Immature granulocytes (Bld) [#/Vol] 0.1 10*3/uL High NINF - 0.1 10*3/uL [facility] Immature granulocytes/100 WBC (Bld) 0.7 % 0.0 - 2.0 % [facility] Interpretation and review of laboratory results Abnormal [facility] Lymphocytes (Bld) [#/Vol] 2.5 10*3/uL 1.0 - 4.3 10*3/uL [facility] Lymphocytes/100 WBC (Bld) 23.4 % 15.0 - 45.0 % [facility] MCH (RBC) [Entitic mass] 29.2 pg 26.0 - 34.0 pg [facility] MCHC (RBC) [Mass/Vol] 31.0 % 30.5 - 36.0 % [facility] [employer] MCV (RBC) [Entitic vol] 94.4 fL 77.0 - 99.0 fL [facility] [employer] Monocytes (Bld) [#/Vol] 1.0 10*3/uL High 0.0 - 0.9 10*3/uL [facility] Monocytes/100 WBC (Bld) 9.0 % 5.0 - 13.0 % [facility] Neutrophils (Bld) [#/Vol] 7.0 10*3/uL 1.8 - 7.5 10*3/uL [facility] Neutrophils/100 WBC (Bld) 64.9 % 38.0 - 82.0 % [facility] [employer] Nucleated RBC/100 WBC (Bld) [Ratio] 0.0 % [facility] [employer] Platelet mean volume (Bld) [Entitic vol] 10.9 fL 9.0 - 12.7 fL [facility] Platelets (Bld) [#/Vol] 288 10*3/uL 140 - 440 10*3/uL [facility] RBC (Bld) [#/Vol] 2.84 10*6/uL Low 3.80 - 5.2 0 10*6/uL [facility] WBC (Bld) [#/Vol] 10.7 10*3/uL 3.6 - 10.7 10*3/uL [facility] CBC WITH AUTO DIFFERENTIALon 10-09-2023 Basophils (Bld) [#/Vol] 0.0 10*3/uL Normal 0.0-0.2 [facility] Comment on above: Performed By: #### L [id number] ####[facility] Medical: ROSALVA LOPEZ ([id number])[address] Basophils/100 WBC (Bld) 0.3 % Normal 0.0-2.0 [facility] Comment on above: Performed By: #### L [id number] ####Vp Medical: ROSALVA LOPEZ ([id number])[facility])[address] [place] [address] Eosinophils (Bld) [#/Vol] 0.2 10*3/uL Normal 0.0-0.5 [facility] Comment on above: Performed By: #### L [id number] ####[facility]: ROSALVA LOPEZ ([id number])[address] Eosinophils/100 WBC (Bld) 1.7 % Normal 0.0-6.0 [facility] Comment on above: Performed By: #### L [id number] ####Vp Medical: ROSALVA LOPEZ ([id number])[facility])[address] [place] [address] Erythrocyte distribution width (RBC) [Ratio] 15.4 % High 11.5-15.0 [facility] Comment on above: Performed By: #### L [id number] ####[facility] Medical: ROSALVA LOPEZ ([id number])[address] Hematocrit (Bld) [Volume fraction] 26.8 % Low 35.0-47.0 [facility] Comment on above: Performed By: #### L [id number] ####[facility]: ROSALVA LOPEZ ([id number])[address] Hemoglobin (Bld) [Mass/Vol] 8.3 g/dL Low 11.7-16.0 [facility] Comment on above: Performed By: #### L [id number] ####[facility] Medical: ROSALVA LOPEZ ([id number])[address] IMMATURE GRANS % 0.7 % Normal 0.0-2.0 [facility] Comment on above: Performed By: #### L [id number] ####[facility] Medical: ROSALVA LOPEZ ([id number])[address] IMMATURE GRANS ABSOLUTE 0.1 10*3/uL High <0.1 [facility] Comment on above: Performed By: #### L [id number] ####Vp Medical: ROSALVA [id number])[facility])[address] [place] [address] Lymphocytes (Bld) [#/Vol] 2.5 10*3/uL Normal 1.0-4.3 [facility] Comment on above: Performed By: #### L [id number] ####Vp Medical: ROSALVA LOPEZ ([id number])[facility])[address] [place] [address] Lymphocytes/100 WBC (Bld) 23.4 % Normal 15.0-45.0 [facility] Comment on above: Performed By: #### L [id number] ####Vp Medical: ROSALVA LOPEZ ([id number])[facility])[address] [place] [address] MCH (RBC) [Entitic mass] 29.2 pg Normal 26.0-34.0 [facility] Comment on above: Performed By: #### L [id number] ####Vp Medical: ROSALVA LOPEZ ([id number])[facility])[address] [place] [address] MCHC 31.0 % Normal 30.5-36.0 [facility] Comment on above: Performed By: #### L [id number] ####Vp Medical: ROSALVA LOPEZ ([id number])[facility])[address] [place] [address] MCV (RBC) [Entitic vol] 94.4 fL Normal 77.0-99.0 [facility] Comment on above: Performed By: #### L [id number] ####Vp Medical: ROSALVA LOPEZ ([id number])[facility])[address] [place] [address] Monocytes (Bld) [#/Vol] 1.0 10*3/uL High 0.0-0.9 [facility] Comment on above: Performed By: #### L [id number] ####Vp Medical: ROSALVA LOPEZ ([id number])[facility])[address] [place] [address] [place] Monocytes/100 WBC (Bld) 9.0 % Normal 5.0-13.0 [facility] Comment on above: Performed By: #### L [id number] ####Vp Medical: ROSALVA LOPEZ ([id number])[facility])[address] [place] [address] NEUTROPHILS ABSOLUTE 7.0 10*3/uL Normal 1.8-7.5 [facility] Comment on above: Performed By: #### L [id number] ####Vp Medical: ROSALVA LOPEZ ([id number])[facility])[address] [place] [address] Neutrophils/100 WBC (Bld) 64.9 % Normal 38.0-82.0 [facility] Comment on above: Performed By: #### L [id number] ####Vp Medical: ROSALVA LOPEZ ([id number])[facility])[address] [place] [address] NRBC 0.0 /100 WBCs Normal 0.0-2.0 [facility] Comment on above: Performed By: #### L [id number] ####Vp Medical: ROSALVA LOPEZ ([id number])[facility])[address] [place] [address] Platelet mean volume (Bld) [Entitic vol] 10.9 fL Normal 9.0-12.7 [facility] Comment on above: Performed By: #### L [id number] ####Vp Medical: ROSALVA LOPEZ ([id number])[facility])[address] [place] [address] Platelets (Bld) [#/Vol] 288 10*3/uL Normal 140-440 [facility] Comment on above: Performed By: #### L [id number] ####Vp Medical: ROSALVA LOPEZ ([id number])[facility])[address] [place] [address] RBC (Bld) [#/Vol] 2.84 10*6/uL Low 3.80-5.20 [facility] Comment on above: Performed By: #### L [id number] ####Vp Medical: ROSALVA LOPEZ ([id number])[facility])[address] [place] [address] WBC (Bld) [#/Vol] 10.7 10*3/uL Normal 3.6-10.7 [facility] Comment on above: Performed By: #### L [id number] ####Vp Medical: ROSALVA LOPEZ ([id number])[facility])[address] [place] [address] Laboratory - Chemistry and C hemistry - challengeon 10-09-2023 Magnesium [Mass/Vol] 2.0 mg/dL 1.6 - 2 .3 mg/dL [facility] MAGNESIUMon 10-09-2023 Magnesium [Mass/Vol] 2.0 mg/dL Normal 1.6-2.3 [facility] Comment on above: Performed By: #### L AB15, [id number] ####Vp Medical: ROSALVA LOPEZ ([id number])[facility])[address] [place] [address] Magnesium [Mass/Vol]on 10-08 Interpretation and review of laboratory results Normal [facility] No Panel Informationon 10-08 [facility] Progress Noteon 10-09-2023 Progress Note Normal [facility] BASIC METABOLIC PANELon 04-0 Anion gap [Moles/Vol] 13 mmol/L Normal 3-13 [facility] Comment on above: Performed By: #### L AB103, [id number], LAB15 ####Vp Medical: ROSALVA LOPEZ ([id number])[facility])[address] [place] [address] Calcium [Mass/Vol] 9.6 mg/dL Normal 8.4-10.4 [facility] Comment on above: Performed By: #### L AB103, [id number], LAB15 ####Vp Medical: ROSALVA LOPEZ ([id number])[facility])[address] [place] [address] Chloride [Moles/Vol] 95 mmol/L Low 98-107 [facility] Comment on above: Performed By: #### L AB103, [id number], LAB15 ####Vp Medical: ROSALVA LOPEZ ([id number])[facility])[address] [place] [address] CO2 [Moles/Vol] 35 mmol/L High 22-30 [facility] Comment on above: Performed By: #### L AB103, [id number], LAB15 ####Vp Medical: ROSALVA LOPEZ ([id number])[facility])[address] [place] [address] Creatinine [Mass/Vol] 0.52 mg/dL Normal 0.52-1.04 [facility] Comment on above: Performed By: #### L AB103, [id number], LAB15 ####Vp Medical: ROSALVA LOPEZ ([id number])[facility])[address] [place] [address] GLOMERULAR FILTRATION RATE ML/MIN/1.73 SQ M.PREDICTED >90.0 Normal >60.0 [facility] Comment on above: Result Comment: Calc ulation based on the Chronic Kidney Disease Epidemiology Collaboration (CKD-EPI) equation refit without adjustment for race Performed By: #### L AB103, [id number], LAB15 ####Vp Medical: ROSALVA LOPEZ ([id number])[facility])[address] [place] [address] Glucose [Mass/Vol] 128 mg/dL High 70-100 [facility] Comment on above: Performed By: #### L AB103, [id number], LAB15 ####Vp Medical: ROSALVA LOPEZ ([id number])[facility])[address] [place] [address] Potassium [Moles/Vol] 3.3 mmol/L Low 3.5-5.1 [facility] Comment on above: Performed By: #### L AB103, [id number], LAB15 ####Vp Medical: ROSALVA LOPEZ ([id number])[facility])[address] [place] [address] [place] Sodium [Moles/Vol] 143 mmol/L Normal 135-145 [facility] Comment on above: Performed By: #### L AB103, [id number], LAB15 ####Vp Medical: ROSALVA LOPEZ ([id number])[facility] ([facility])[address] [place] [address] Urea nitrogen [Mass/Vol] 27 mg/dL High 7-17 [facility] Comment on above: Performed By: #### L AB103, [id number], LAB15 ####Vp Medical: ROSALVA LOPEZ ([id number])[facility] [place] [address] Basic metabolic 1998 panelon 10-08-2023 Anion gap [Moles/Vol] 13 mmol/L 3 - 13 mmol/L [facility] Calcium [Mass/Vol] 9.6 mg/dL 8.4 - 10. 4 mg/dL [facility] Chloride [Moles/Vol] 95 mmol/L Low 98 - 10 7 mmol/L [facility] CO2 [Moles/Vol] 35 mmol/L High 22 - 30 mmol/L [facility] Creatinine [Mass/Vol] 0.52 mg/dL 0.52 - 1.04 mg/dL [facility] GFR/1.73 sq M.predicted MDRD (S/P/Bld) [Vol rate/Area] - PINF [facility] Glucose [Mass/Vol] 128 mg/dL High 70 - 100 mg/dL [facility] Interpretation and review of laboratory results Abnormal [facility] Potassium [Moles/Vol] 3.3 mmol/L Low 3.5 - 5.1 mmol/L [facility] Sodium [Moles/Vol] 143 mmol/L 135 - 145 mmol/L [facility] Urea nitrogen [Mass/Vol] 27 mg/dL High 7 - 17 mg/dL [facility] CALCIUM, IONIZEDon 4 CALCIUM IONIZED 4.00 mg/dL Low 4.30-5.20 [facility] Comment on above: Performed By: #### L [id number] ####Vp Medical: ROSALVA LOPEZ ([id number])[facility] [place] [address] PH, IONIZED CALCIUM 7.53 High 7.31-7.46 [facility] Comment on above: Performed By: #### L AB54 ####Vp Medical: ROSALVA LOPEZ ([id number])[address] CARECOORDon 10-08-2023 CARECOORD Normal [facility] CBC W Auto Differential pane l (Bld)on 10-08-2023 Basophils (Bld) [#/Vol] 0.0 10*3/uL 0.0 - 0.2 10*3/uL [facility] Basophils/100 WBC (Bld) 0.3 % 0.0 - 2.0 % [facility] Eosinophils (Bld) [#/Vol] 0.1 10*3/uL 0.0 - 0.5 10*3/uL [facility] Eosinophils/100 WBC (Bld) 1.3 % 0.0 - 6.0 % [facility] Erythrocyte distribution width (RBC) [Ratio] 15.1 % High 11.5 - 15.0 % [facility] Hematocrit (Bld) [Volume fraction] 24.4 % Low 35.0 - 47.0 % [facility] Hemoglobin (Bld) [Mass/Vol] 7.6 g/dL Low 11.7 - 16.0 g/dL [facility] Immature granulocytes (Bld) [#/Vol] 0.1 10*3/uL High NINF - 0.1 10*3/uL [facility] Immature granulocytes/100 WBC (Bld) 0.5 % 0.0 - 2.0 % [facility] Interpretation and review of laboratory results Abnormal [facility] Lymphocytes (Bld) [#/Vol] 1.6 10*3/uL 1.0 - 4.3 10*3/uL [facility] Lymphocytes/100 WBC (Bld) 17.8 % 15.0 - 45.0 % [facility] MCH (RBC) [Entitic mass] 29.3 pg 26.0 - 34.0 pg [facility] MCHC (RBC) [Mass/Vol] 31.1 % 30.5 - 36.0 % [facility] MCV (RBC) [Entitic vol] 94.2 fL 77.0 - 99.0 fL [facility] Monocytes (Bld) [#/Vol] 0.6 10*3/uL 0.0 - 0.9 10*3/uL [facility] Monocytes/100 WBC (Bld) 6.6 % 5.0 - 13.0 % [facility] Neutrophils (Bld) [#/Vol] 6.7 10*3/uL 1.8 - 7.5 10*3/uL [facility] Neutrophils/100 WBC (Bld) 73.5 % 38.0 - 82.0 % [facility] Nucleated RBC/100 WBC (Bld) [Ratio] 0.0 % [facility] Platelet mean volume (Bld) [Entitic vol] 10.7 fL 9.0 - 12.7 fL [facility] Platelets (Bld) [#/Vol] 244 10*3/uL 140 - 440 10*3/uL [facility] RBC (Bld) [#/Vol] 2.59 10*6/uL Low 3.80 - 5.2 0 10*6/uL [facility] WBC (Bld) [#/Vol] 9.2 10*3/uL 3.6 - 10.7 10*3/uL [facility] CBC WITH AUTO DIFFERENTIALon 10-08-2023 Basophils (Bld) [#/Vol] 0.0 10*3/uL Normal 0.0-0.2 [facility] Comment on above: Performed By: #### L [id number] ####Vp Medical: ROSALVA LOPEZ ([id number])[facility])[address] [place] [address] Basophils/100 WBC (Bld) 0.3 % Normal 0.0-2.0 [facility] Comment on above: Performed By: #### L [id number] ####Vp Medical: ROSALVA LOPEZ ([id number])[facility])[address] [place] [address] Eosinophils (Bld) [#/Vol] 0.1 10*3/uL Normal 0.0-0.5 [facility] Comment on above: Performed By: #### L [id number] ####Vp Medical: ROSALVA [id number])[facility] Eosinophils/100 WBC (Bld) 1.3 % Normal 0.0-6.0 [facility] Comment on above: Performed By: #### L [id number] ####Vp Medical: ROSALVA LOPEZ ([id number])[facility])[address] [place] [address] Erythrocyte distribution width (RBC) [Ratio] 15.1 % High 11.5-15.0 [facility] Comment on above: Performed By: #### L [id number] ####Vp Medical: ROSALVA LOPEZ ([id number])[address] Hematocrit (Bld) [Volume fraction] 24.4 % Low 35.0-47.0 [facility] Comment on above: Performed By: #### L [id number] ####Vp Medical: ROSALVA LOPEZ ([id number])[address] Hemoglobin (Bld) [Mass/Vol] 7.6 g/dL Low 11.7-16.0 [facility] Comment on above: Performed By: #### L [id number] ####Vp Medical: ROSALVA LOPEZ ([id number])[address] IMMATURE GRANS % 0.5 % Normal 0.0-2.0 [facility] Comment on above: Performed By: #### L [id number] ####Vp Medical: ROSALVA LOPEZ ([id number])[address] IMMATURE GRANS ABSOLUTE 0.1 10*3/uL High <0.1 [facility] Comment on above: Performed By: #### L [id number] ####Vp Medical: ROSALVA LOPEZ ([id number])[address] Lymphocytes (Bld) [#/Vol] 1.6 10*3/uL Normal 1.0-4.3 [facility] Comment on above: Performed By: #### L [id number] ####Vp Medical: ROSALVA LOPEZ ([id number])[facility])[address] [place] [address] Lymphocytes/100 WBC (Bld) 17.8 % Normal 15.0-45.0 [facility] Comment on above: Performed By: #### L [id number] ####Vp Medical: ROSALVA LOPEZ ([id number])[facility])[address] [place] [address] MCH (RBC) [Entitic mass] 29.3 pg Normal 26.0-34.0 [facility] Comment on above: Performed By: #### L [id number] ####Vp Medical: ROSALVA LOPEZ ([id number])[facility])[address] [place] [address] MCHC 31.1 % Normal 30.5-36.0 [facility] Comment on above: Performed By: #### L [id number] ####Vp Medical: ROSALVA LOPEZ ([id number])[facility])[address] [place] [address] MCV (RBC) [Entitic vol] 94.2 fL Normal 77.0-99.0 [facility] Comment on above: Performed By: #### L [id number] ####Vp Medical: ROSALVA LOPEZ ([id number])[facility])[address] [place] [address] Monocytes (Bld) [#/Vol] 0.6 10*3/uL Normal 0.0-0.9 [facility] Comment on above: Performed By: #### L [id number] ####Vp Medical: ROSALVA LOPEZ ([id number])[facility])[address] [place] [address] Monocytes/100 WBC (Bld) 6.6 % Normal 5.0-13.0 [facility] Comment on above: Performed By: #### L [id number] ####Vp Medical: ROSALVA LOPEZ ([id number])[facility] [place] [address] NEUTROPHILS ABSOLUTE 6.7 10*3/uL Normal 1.8-7.5 [facility] Comment on above: Performed By: #### L [id number] ####Vp Medical: ROSALVA LOPEZ ([id number])[facility])[address] [place] [address] Neutrophils/100 WBC (Bld) 73.5 % Normal 38.0-82.0 [facility] Comment on above: Performed By: #### L [id number] ####Vp Medical: ROSALVA LOPEZ ([id number])[facility] ([facility])[address] [place] [address] NRBC 0.0 /100 WBCs Normal 0.0-2.0 [facility] Comment on above: Performed By: #### L [id number] ####Vp Medical: ROSALVA LOPEZ ([id number])[facility])[address] [place] [address] Platelet mean volume (Bld) [Entitic vol] 10.7 fL Normal 9.0-12.7 [facility] Comment on above: Performed By: #### L [id number] ####Vp Medical: ROSALVA LOPEZ ([id number])[facility] ([facility])[address] [place] [address] Platelets (Bld) [#/Vol] 244 10*3/uL Normal 140-440 [facility] Comment on above: Performed By: #### L [id number] ####[facility]: ROSALVA LOPEZ ([id number])[facility] ([facility])[address] [place] [address] RBC (Bld) [#/Vol] 2.59 10*6/uL Low 3.80-5.20 [facility] Comment on above: Performed By: #### L [id number] ####[facility]: ROSALVA LOPEZ ([id number])[facility] ([facility])[address] [place] [address] WBC (Bld) [#/Vol] 9.2 10*3/uL Normal 3.6-10.7 [facility] Comment on above: Performed By: #### L [id number] ####[facility]: ROSALVA LOPEZ ([id number])[facility] [place] [address] Calcium.ionized [Moles/Vol]O rdered By: Booker Pro on 10-08-2023 Calcium.ionized (Bld) [Moles/Vol] 4.00 mg/dL Low 4.30 - 5.20 mg/dL [facility] Interpretation and review of laboratory results Abnormal [facility] PH, IONIZED CALCIUM 7.53 High 7.31 - 7.46 [facility] - Chemistry and C hemistry - challengeon 10-08-2023 Glucose [Mass/Vol] 134 mg/dL High 70 - 100 mg/dL [facility] Glucose [Mass/Vol] 163 mg/dL High 70 - 100 mg/dL [facility] Glucose [Mass/Vol] 118 mg/dL High 70 - 100 mg/dL [facility] Magnesium [Mass/Vol] 1.7 mg/dL 1.6 - 2 .3 mg/dL [facility] MAGNESIUMon 10-08-2023 Magnesium [Mass/Vol] 1.7 mg/dL Normal 1.6-2.3 [facility] Comment on above: Performed By: #### L [id number], [id number], [id number] ####[facility] Medical: ROSALVA LOPEZ ([id number])[facility] ([facility])[address] [place] [address] No Panel Informationon 10-07 Interpretation and review of laboratory results Abnormal [facility] Interpretation and review of laboratory results Abnormal [facility] Interpretation and review of laboratory results Abnormal [facility] Interpretation and review of laboratory results Normal [facility] PHOSPHORUSon 10-08-2023 Phosphate [Mass/Vol] 4.4 mg/dL Normal 2.5-4.5 [facility] Comment on above: Performed By: #### L [id number], [id number], LAB15 ####[facility]: ROSALVA LOPEZ ([id number])[facility] ([facility])[address] [place] [address] [place] Phosphate [Moles/Vol]on Phosphate [Mass/Vol] 4.4 mg/dL 2.5 - 4 .5 mg/dL [facility] Progress Noteon 10-08-2023 Progress Note Removed patients urethral catheter per protocol. Patient educated on need for PVR bladder scans. Normal [facility] Progress Note Normal [facility] Progress Note Normal [facility] Progress Note Normal [facility] Progress Note Normal [facility] Progress Note Normal [facility] Progress Note Attempted PS trial a t 11/09 and patient did not tolerate her RR increased to 45 and she became a little anxious Normal [facility] Progress Note OCCUPATIONAL THERAPY [facility] Name/MRN: Luiza May ([id number]) Date: 10/08/2023 Pt reviewed, goals and POC remain appropriate, no re-eval required. Lu Magallanes, OT Normal [facility] Progress Note Normal [facility] BASIC METABOLIC PANELon Anion gap [Moles/Vol] 12 mmol/L Normal 3-13 [facility] Comment on above: Performed By: #### L AB103, [id number], LAB15 ####[facility]: ROSALVA LOPEZ ([id number])[facility] ([facility])[address] [place] [address] [place] Calcium [Mass/Vol] 9.5 mg/dL Normal 8.4-10.4 [facility] Comment on above: Performed By: #### L AB103, [id number], LAB15 ####[facility]p Medical: ROSALVA LOPEZ ([id number])[facility] ([facility])[address] [place] [address] [place] Chloride [Moles/Vol] 97 mmol/L Low 98-107 [facility] Comment on above: Performed By: #### L AB103, [id number], LAB15 ####Vp Medical: ROSALVA LOPEZ ([id number])[facility] ([facility])[address] [place] [address] [place] CO2 [Moles/Vol] 36 mmol/L High 22-30 [facility] Comment on above: Performed By: #### L AB103, [id number], LAB15 ####Vp Medical: ROSALVA LOPEZ ([id number])[facility])[address] [place] [address] Creatinine [Mass/Vol] 0.53 mg/dL Normal 0.52-1.04 [facility] Comment on above: Performed By: #### L AB103, [id number], LAB15 ####[facility]p Medical: ROSALVA LOPEZ ([id number])[facility] ([facility])[address] [place] [address] GLOMERULAR FILTRATION RATE ML/MIN/1.73 SQ M.PREDICTED >90.0 Normal >60.0 [facility] Comment on above: Result Comment: Calc ulation based on the Chronic Kidney Disease Epidemiology Collaboration (CKD-EPI) equation refit without adjustment for race Performed By: #### Elza AB103, [id number], LAB15 ####V[facility] Medical: ROSALVA LOPEZ ([id number])[facility] [place] [address] [place] Glucose [Mass/Vol] 112 mg/dL High 70-100 [facility] Comment on above: Performed By: #### L AB103, [id number], LAB15 ####[facility] Medical: ROSALVA LOPEZ ([id number])[facility] ([facility])[address] [place] [address] [place] Potassium [Moles/Vol] 3.4 mmol/L Low 3.5-5.1 [facility] Comment on above: Performed By: #### L AB103, [id number], LAB15 ####[facility]p Medical: ROSALVA LOPEZ ([id number])[facility] ([facility])[address] [place] [address] [place] Sodium [Moles/Vol] 144 mmol/L Normal 135-145 [facility] Comment on above: Performed By: #### L AB103, [id number], LAB15 ####Vp Medical: ROSALVA LOPEZ ([id number])[facility] ([facility])[address] [place] [address] Urea nitrogen [Mass/Vol] 21 mg/dL High 7-17 [facility] Comment on above: Performed By: #### L AB103, [id number], LAB15 ####Vp Medical: ROSALVA LOPEZ ([id number])[facility])[address] [place] [address] BLOOD GAS, VENOUSon 10-07-19 Base excess Calc (BldV) [Moles/Vol] 13.5 mmol/L High -3.0-3.0 [facility] Comment on above: Performed By: #### L AB79 ####Vp Medical: ROSALVA LOPEZ ([id number])[facility])[address] [place] [address] CO2 [Moles/Vol] 40.5 mmol/L High 24.0-28.0 [facility] Comment on above: Performed By: #### L AB79 ####Vp Medical: ROSALVA LOPEZ ([id number])[facility])[address] [place] [address] HCO3 (Bld) [Moles/Vol] 38.8 mmol/L High 23.0-27.0 [facility] Comment on above: Performed By: #### L AB79 ####Vp Medical: ROSALVA LOPEZ ([id number])[facility])[address] [place] [address] Hemoglobin (Bld) [Mass/Vol] 8.2 g/dL Normal Screen Only [facility] Comment on above: Performed By: #### L AB79 ####Vp Medical: ROSALVA LOPEZ ([id number])[facility])[address] [place] [address] OXYGEN (MM HG) IN VENOUS BLOOD 43.8 mm Hg Normal 30.0-50.0 [facility] Comment on above: Performed By: #### L AB79 ####Vp Medical: ROSALVA LOPEZ ([id number])[facility])[address] [place] [address] OXYGEN SATURATION (%) IN VENOUS BLOOD 77.5 % Normal 60.0-80.0 [facility] Comment on above: Performed By: #### L AB79 ####Vp Medical: ROSALVA LOPEZ ([id number])[facility] ([facility])[address] [place] [address] PCO2, GÉNESIS 54.9 mm Hg Normal 40.0-55.0 [facility] Comment on above: Performed By: #### L AB79 ####Vp Medical: ROSALVA LOPEZ ([id number])[facility])[address] [place] [address] PH VENOUS 7.467 High 7.330-7.430 [facility] Comment on above: Performed By: #### L AB79 ####Vp Medical: ROSALVA LOPEZ ([id number])[facility] ([facility])[address] [place] [address] SOURCE OF OXYGEN Vent Normal [facility] Comment on above: Performed By: #### L AB79 ####Vp Medical: ROSALVA LOPEZ ([id number])[facility])[address] [place] [address] Basic metabolic 1998 panelon 10-07-2023 Anion gap [Moles/Vol] 12 mmol/L 3 - 13 mmol/L [facility] Calcium [Mass/Vol] 9.5 mg/dL 8.4 - 10. 4 mg/dL [facility] Chloride [Moles/Vol] 97 mmol/L Low 98 - 10 7 mmol/L [facility] CO2 [Moles/Vol] 36 mmol/L High 22 - 30 mmol/L [facility] Creatinine [Mass/Vol] 0.53 mg/dL 0.52 - 1.04 mg/dL [facility] GFR/1.73 sq M.predicted MDRD (S/P/Bld) [Vol rate/Area] - PINF [facility] Glucose [Mass/Vol] 112 mg/dL High 70 - 100 mg/dL [facility] Interpretation and review of laboratory results Abnormal [facility] Potassium [Moles/Vol] 3.4 mmol/L Low 3.5 - 5.1 mmol/L [facility] Sodium [Moles/Vol] 144 mmol/L 135 - 145 mmol/L [facility] Urea nitrogen [Mass/Vol] 21 mg/dL High 7 - 17 mg/dL [facility] CALCIUM, IONIZEDon CALCIUM IONIZED 4.40 mg/dL Normal 4.30-5.20 [facility] Comment on above: Performed By: #### L AB54 ####Vp Medical: ROSALVA LOPEZ ([id number])[facility])[address] [place] [address] PH, IONIZED CALCIUM 7.44 Normal 7.31-7.46 [facility] Comment on above: Performed By: #### L AB54 ####[facility] Medical: ROSALVA LOPEZ ([id number])[facility])[address] [place] [address] CARECOORDon 10-07-2023 CARECOORD Normal [facility] CBC W Auto Differential pane l (Bld)on 10-07-2023 Basophils (Bld) [#/Vol] 0.0 10*3/uL 0.0 - 0.2 10*3/uL [facility] Basophils/100 WBC (Bld) 0.1 % 0.0 - 2.0 % [facility] Eosinophils (Bld) [#/Vol] 0.1 10*3/uL 0.0 - 0.5 10*3/uL [facility] Eosinophils/100 WBC (Bld) 1.5 % 0.0 - 6.0 % [facility] Erythrocyte distribution width (RBC) [Ratio] 15.1 % High 11.5 - 15.0 % [facility] Hematocrit (Bld) [Volume fraction] 22.6 % Low 35.0 - 47.0 % [facility] Hemoglobin (Bld) [Mass/Vol] 7.1 g/dL Low 11.7 - 16.0 g/dL [facility] [employer] Immature granulocytes (Bld) [#/Vol] 0.0 10*3/uL NINF - 0.1 10*3/uL [facility] [employer] Immature granulocytes/100 WBC (Bld) 0.6 % 0.0 - 2.0 % [facility] Interpretation and review of laboratory results Abnormal [facility] Lymphocytes (Bld) [#/Vol] 1.4 10*3/uL 1.0 - 4.3 10*3/uL [facility] Lymphocytes/100 WBC (Bld) 20.3 % 15.0 - 45.0 % [facility] MCH (RBC) [Entitic mass] 29.2 pg 26.0 - 34.0 pg [facility] MCHC (RBC) [Mass/Vol] 31.4 % 30.5 - 36.0 % [facility] MCV (RBC) [Entitic vol] 93.0 fL 77.0 - 99.0 fL [facility] Monocytes (Bld) [#/Vol] 0.6 10*3/uL 0.0 - 0.9 10*3/uL [facility] Monocytes/100 WBC (Bld) 8.7 % 5.0 - 13.0 % [facility] Neutrophils (Bld) [#/Vol] 4.9 10*3/uL 1.8 - 7.5 10*3/uL [facility] Neutrophils/100 WBC (Bld) 68.8 % 38.0 - 82.0 % [facility] Nucleated RBC/100 WBC (Bld) [Ratio] 0.0 % [facility] Platelet mean volume (Bld) [Entitic vol] 10.6 fL 9.0 - 12.7 fL [facility] Platelets (Bld) [#/Vol] 204 10*3/uL 140 - 440 10*3/uL [facility] RBC (Bld) [#/Vol] 2.43 10*6/uL Low 3.80 - 5.2 0 10*6/uL [facility] WBC (Bld) [#/Vol] 7.1 10*3/uL 3.6 - 10.7 10*3/uL [facility] CBC WITH AUTO DIFFERENTIALon 10-07-2023 Basophils (Bld) [#/Vol] 0.0 10*3/uL Normal 0.0-0.2 [facility] Comment on above: Performed By: #### L [id number] ####[facility]: ROSALVA LOPEZ ([id number])[facility] ([address] Basophils/100 WBC (Bld) 0.1 % Normal 0.0-2.0 [facility] Comment on above: Performed By: #### L [id number] ####V[facility]: ROSALVA LOPEZ ([id number])[facility])[address] [place] [address] Eosinophils (Bld) [#/Vol] 0.1 10*3/uL Normal 0.0-0.5 [facility] Comment on above: Performed By: #### L [id number] ####Vp Medical: ROSALVA LOPEZ ([id number])[facility])[address] [place] [address] Eosinophils/100 WBC (Bld) 1.5 % Normal 0.0-6.0 [facility] Comment on above: Performed By: #### L [id number] ####[facility] Medical: ROSALVA LOPEZ ([id number])[address] Erythrocyte distribution width (RBC) [Ratio] 15.1 % High 11.5-15.0 [facility] Comment on above: Performed By: #### L [id number] ####[facility] Medical: ROSALVA LOPEZ ([id number])[address] Hematocrit (Bld) [Volume fraction] 22.6 % Low 35.0-47.0 [facility] Comment on above: Performed By: #### L [id number] ####[facility] Medical: ROSALVA LOPEZ ([id number])[address] Hemoglobin (Bld) [Mass/Vol] 7.1 g/dL Low 11.7-16.0 [facility] Comment on above: Performed By: #### L [id number] ####[facility]: ROSALVA LOPEZ ([id number])[address] IMMATURE GRANS % 0.6 % Normal 0.0-2.0 [facility] Comment on above: Performed By: #### L [id number] ####[facility] Medical: ROSALVA [id number])[facility])[address] [place] [address] IMMATURE GRANS ABSOLUTE 0.0 10*3/uL Normal <0.1 [facility] Comment on above: Performed By: #### L [id number] ####Vp Medical: ROSALVA LOPEZ ([id number])[facility])[address] [place] [address] Lymphocytes (Bld) [#/Vol] 1.4 10*3/uL Normal 1.0-4.3 [facility] Comment on above: Performed By: #### L [id number] ####Vp Medical: ROSALVA LOPEZ ([id number])[facility])[address] [place] [address] Lymphocytes/100 WBC (Bld) 20.3 % Normal 15.0-45.0 [facility] Comment on above: Performed By: #### L [id number] ####Vp Medical: ROSALVA LOPEZ ([id number])[facility])[address] [place] [address] MCH (RBC) [Entitic mass] 29.2 pg Normal 26.0-34.0 [facility] Comment on above: Performed By: #### L [id number] ####Vp Medical: ROSALVA LOPEZ ([id number])[facility])[address] [place] [address] MCHC 31.4 % Normal 30.5-36.0 [facility] Comment on above: Performed By: #### L [id number] ####Vp Medical: ROSALVA LOPEZ ([id number])[facility])[address] [place] [address] MCV (RBC) [Entitic vol] 93.0 fL Normal 77.0-99.0 [facility] Comment on above: Performed By: #### L [id number] ####Vp Medical: ROSLAVA LOPEZ ([id number])[facility])[address] [place] [address] Monocytes (Bld) [#/Vol] 0.6 10*3/uL Normal 0.0-0.9 [facility] Comment on above: Performed By: #### L [id number] ####Vp Medical: ROSALVA LOPEZ ([id number])[facility])[address] [place] [address] Monocytes/100 WBC (Bld) 8.7 % Normal 5.0-13.0 [facility] Comment on above: Performed By: #### L [id number] ####Vp Medical: ROSALVA LOPEZ ([id number])[facility] ([facility])[address] [place] [address] NEUTROPHILS ABSOLUTE 4.9 10*3/uL Normal 1.8-7.5 [facility] Comment on above: Performed By: #### L [id number] ####Vp Medical: ROSALVA LOPEZ ([id number])[facility] ([facility])[address] [place] [address] Neutrophils/100 WBC (Bld) 68.8 % Normal 38.0-82.0 [facility] Comment on above: Performed By: #### L [id number] ####Vp Medical: ROSALVA LOPEZ ([id number])[facility] ([facility])[address] [place] [address] NRBC 0.0 /100 WBCs Normal 0.0-2.0 [facility] Comment on above: Performed By: #### L [id number] ####Vp Medical: ROSALVA LOPEZ ([id number])[facility] ([facility])[address] [place] [address] Platelet mean volume (Bld) [Entitic vol] 10.6 fL Normal 9.0-12.7 [facility] Comment on above: Performed By: #### L [id number] ####Vp Medical: ROSALVA LOPEZ ([id number])[facility])[address] [place] [address] Platelets (Bld) [#/Vol] 204 10*3/uL Normal 140-440 [facility] Comment on above: Performed By: #### L [id number] ####Vp Medical: ROSALVA LOPEZ ([id number])[facility])[address] [place] [address] RBC (Bld) [#/Vol] 2.43 10*6/uL Low 3.80-5.20 [facility] Comment on above: Performed By: #### L [id number] ####Vp Medical: ROSALVA LOPEZ ([id number])[facility])[address] [place] [address] WBC (Bld) [#/Vol] 7.1 10*3/uL Normal 3.6-10.7 [facility] Comment on above: Performed By: #### L [id number] ####[facility] Medical: ROSALVA LOPEZ ([id number])[address] Calcium.ionized [Moles/Vol]o n 10-07-2023 Calcium.ionized (Bld) [Moles/Vol] 4.40 mg/dL 4.30 - 5.20 mg/dL [facility] Interpretation and review of laboratory results Normal [facility] PH, IONIZED CALCIUM 7.44 7.31 - 7.46 [facility] Consulton 10-07-2023 Consult Pulmonary consult acknowledged. Pulmonary service to follow when patient is transferred out of ICU. Normal [facility] HEMOGLOBIN AND HEMATOCRIT, B LOODon 10-07-2023 Hematocrit (Bld) [Volume fraction] 25.2 % Low 35.0-47.0 [facility] Comment on above: Performed By: #### L [id number] ####Vp Medical: ROSALVA LOPEZ ([id number])[facility])[address] [place] [address] Hemoglobin (Bld) [Mass/Vol] 8.1 g/dL Low 11.7-16.0 [facility] Comment on above: Performed By: #### L [id number] ####Vp Medical: ROSALVA LOPEZ ([id number])[facility])[address] [place] [address] Hemoglobin (Bld) [Mass/Vol]o n 10-07-2023 Hematocrit (Bld) [Volume fraction] 25.2 % Low 35.0 - 47.0 % [facility] Interpretation and review of laboratory results Abnormal [facility] Laboratory - Chemistry and C hemistry - challengeOrdered By: Shi Toth on 10-07-2023 Base excess Calc (BldV) [Moles/Vol] 13.5 mmol/L High -3.0 - 3.0 mmol/L [facility] CO2 (BldV) [Partial pressure] 54.9 mm[Hg] [facility] CO2 [Moles/Vol] 40.5 mmol/L High 24.0 - 28.0 mmol/L [facility] HCO3 (Bld) [Moles/Vol] 38.8 mmol/L High 23.0 - 27.0 mmol/L [facility] Oxygen (BldV) [Partial pressure] 43.8 mm[Hg] [facility] pH (BldV) 7.467 [pH] High 7.330 - 7.430 [facility] Laboratory - Chemistry and C hemistry - challengeon 10-07-2023 Magnesium [Mass/Vol] 1.6 mg/dL 1.6 - 2 .3 mg/dL [facility] Laboratory - Hematology and Cell countson 10-07-2023 Hemoglobin (Bld) [Mass/Vol] 8.1 g/dL Low 11.7 - 16.0 g/dL [facility] Laboratory - Hematology and Cell countsOrdered By: Shi Toth on 10-07-2023 Hemoglobin (Bld) [Mass/Vol] 8.2 g/dL Screen Only [facility] MAGNESIUMon 10-07-2023 Magnesium [Mass/Vol] 1.6 mg/dL Normal 1.6-2.3 [facility] Comment on above: Performed By: #### L AB103, [id number], LAB15 ####Vp Medical: ROSALVA LOPEZ ([id number])[address] No Panel InformationOrdered By: Shi Toth on 10-07-2023 Interpretation and review of laboratory results Abnormal [facility] Source Of Oxygen Vent [facility] No Panel Informationon 10-06 Interpretation and review of laboratory results Normal [facility] PHOSPHORUSon 10-07-2023 Phosphate [Mass/Vol] 3.4 mg/dL Normal 2.5-4.5 [facility] Comment on above: Performed By: #### L AB103, [id number], LAB15 ####Vp Medical: ROSALVA LOPEZ ([id number])[facility] ([facility])[address] [place] [address] [place] Phosphate [Moles/Vol]on Phosphate [Mass/Vol] 3.4 mg/dL 2.5 - 4 .5 mg/dL [facility] Progress Noteon 10-07-2023 Progress Note Normal [facility] Progress Note Normal [facility] Progress Note Normal [facility] Progress Note Normal [facility] Progress Note Normal [facility] Vital signsOrdered By: Karine Toth on 10-07-2023 Oxygen saturation in Venous blood 77.5 % 60.0 - 80.0 % [facility] XR CHEST 1 VIEWon 10-07-2023 XR CHEST 1 VIEW Normal [facility] XR Chest Single viewon 10-06 [facility] Radiology Study observation (narrative) [facility] XR Chest Single viewOrdered By: Austen Vargas on 10-07-2023 [facility] Work Phone: BASIC METABOLIC PANELon Anion gap [Moles/Vol] 11 mmol/L Normal 3-13 [facility] Comment on above: Performed By: #### L AB103, [id number], LAB15 ####V[facility] Medical: ROSALVA LOPEZ ([id number])[facility])[address] [place] [address] [place] Calcium [Mass/Vol] 9.0 mg/dL Normal 8.4-10.4 [facility] Comment on above: Performed By: #### L AB103, [id number], LAB15 ####Vp Medical: ROSALVA LOPEZ ([id number])[facility])[address] [place] [address] [place] Chloride [Moles/Vol] 102 mmol/L Normal 98-107 [facility] Comment on above: Performed By: #### L AB103, [id number], LAB15 ####Vp Medical: ROSALVA LOPEZ ([id number])[facility])[address] [place] [address] CO2 [Moles/Vol] 32 mmol/L High 22-30 [facility] Comment on above: Performed By: #### L AB103, [id number], LAB15 ####Vp Medical: ROSALVA LOPEZ ([id number])[facility])[address] [place] [address] Creatinine [Mass/Vol] 0.61 mg/dL Normal 0.52-1.04 [facility] Comment on above: Performed By: #### L AB103, [id number], LAB15 ####Vp Medical: ROSALVA LOPEZ ([id number])[facility])[address] [place] [address] GLOMERULAR FILTRATION RATE ML/MIN/1.73 SQ M.PREDICTED >90.0 Normal >60.0 [facility] Comment on above: Result Comment: Calc ulation based on the Chronic Kidney Disease Epidemiology Collaboration (CKD-EPI) equation refit without adjustment for race Performed By: #### L AB103, [id number], LAB15 ####V[facility] Medical: ROSALVA LOPEZ ([id number])[facility] ([facility])[address] [place] [address] Glucose [Mass/Vol] 137 mg/dL High 70-100 [facility] Comment on above: Performed By: #### L AB103, [id number], LAB15 ####Vp Medical: ROSALVA LOPEZ ([id number])[facility])[address] [place] [address] Potassium [Moles/Vol] 3.9 mmol/L Normal 3.5-5.1 [facility] Comment on above: Performed By: #### L AB103, [id number], LAB15 ####Vp Medical: ROSALVA LOPEZ ([id number])[facility])[address] [place] [address] [place] Sodium [Moles/Vol] 145 mmol/L Normal 135-145 [facility] Comment on above: Performed By: #### L AB103, [id number], LAB15 ####Vp Medical: ROSALVA LOPEZ ([id number])[facility])[address] [place] [address] Urea nitrogen [Mass/Vol] 18 mg/dL High 7-17 [facility] Comment on above: Performed By: #### L AB103, [id number], LAB15 ####Vp Medical: ROSALVA LOPEZ ([id number])[facility])[address] [place] [address] BLOOD GAS ARTERIALon 024 Base excess Calc (Bld) [Moles/Vol] 7.2 mmol/L High -3.0-3.0 [facility] Comment on above: Performed By: #### L AB76 ####Vp Medical: ROSALVA LOPEZ ([id number])[facility] ([facility])[address] [place] [address] CO2 [Moles/Vol] 35.5 mmol/L High 23.0-27.0 [facility] Comment on above: Performed By: #### L [id number] ####[facility]: ROSALVA LOPEZ ([id number])[facility] ([facility])[address] [place] [address] HCO3 (Bld) [Moles/Vol] 33.6 mmol/L High 21.0-25.0 [facility] Comment on above: Performed By: #### L [id number] ####[facility] Medical: ROSALVA LOPEZ ([id number])[facility] ([facility])[address] [place] [address] [place] Hemoglobin (Bld) [Mass/Vol] 8.0 g/dL Normal Screen Only [facility] Comment on above: Performed By: #### L [id number] ####[facility]: ROSALVA LOPEZ ([id number])[facility] ([facility])[address] [place] [address] OXYGEN SATURATION (%) IN ARTERIAL BLOOD 99.4 % Normal 95.0-100.0 [facility] Comment on above: Performed By: #### L [id number] ####[facility]: ROSALVA LOPEZ ([id number])[facility] ([facility])[address] [place] [address] PCO2 ARTERIAL 60.6 mm Hg High >35.0-<45.0 [facility] Comment on above: Performed By: #### L [id number] ####[facility]: ROSALVA LOPEZ ([id number])[facility] ([facility])[address] [place] [address] PH ARTERIAL 7.362 Normal 7.350-7.450 [facility] Comment on above: Performed By: #### L [id number] ####Vp Medical: ROSALVA LOPEZ ([id number])[facility] ([facility])[address] [place] [address] PO2 ARTERIAL 361.3 mm Hg High 80.0-100.0 [facility] Comment on above: Performed By: #### L [id number] ####Vp Medical: ROSALVA LOPEZ ([id number])[facility] ([facility])[address] [place] [address] SOURCE OF OXYGEN Vent Normal [facility] Comment on above: Result Comment: 100% Performed By: #### L [id number] ####Vp Medical: ROSALVA LOPEZ ([id number])[facility] ([facility])[address] [place] [address] Basic metabolic 1998 panelon 10-06-2023 Anion gap [Moles/Vol] 11 mmol/L 3 - 13 mmol/L [facility] Calcium [Mass/Vol] 9.0 mg/dL 8.4 - 10. 4 mg/dL [facility] Chloride [Moles/Vol] 102 mmol/L 98 - 10 7 mmol/L [facility] CO2 [Moles/Vol] 32 mmol/L High 22 - 30 mmol/L [facility] Creatinine [Mass/Vol] 0.61 mg/dL 0.52 - 1.04 mg/dL [facility] GFR/1.73 sq M.predicted MDRD (S/P/Bld) [Vol rate/Area] - PINF [facility] Glucose [Mass/Vol] 137 mg/dL High 70 - 100 mg/dL [facility] Interpretation and review of laboratory results Abnormal [facility] Potassium [Moles/Vol] 3.9 mmol/L 3.5 - 5.1 mmol/L [facility] Sodium [Moles/Vol] 145 mmol/L 135 - 145 mmol/L [facility] Urea nitrogen [Mass/Vol] 18 mg/dL High 7 - 17 mg/dL [facility] CARECOORDon 10-06-2023 CARECOORD Normal [facility] CARECOORD Transportation form completed in [facility]. Normal [facility] CBC W Auto Differential pane l (Bld)on 10-06-2023 Basophils (Bld) [#/Vol] 0.0 10*3/uL 0.0 - 0.2 10*3/uL [facility] Basophils/100 WBC (Bld) 0.1 % 0.0 - 2.0 % [facility] Eosinophils (Bld) [#/Vol] 0.0 10*3/uL 0.0 - 0.5 10*3/uL [facility] Eosinophils/100 WBC (Bld) 0.2 % 0.0 - 6.0 % [facility] Erythrocyte distribution width (RBC) [Ratio] 14.7 % 11.5 - 15.0 % [facility] Hematocrit (Bld) [Volume fraction] 24.1 % Low 35.0 - 47.0 % [facility] Hemoglobin (Bld) [Mass/Vol] 7.6 g/dL Low 11.7 - 16.0 g/dL [facility] Immature granulocytes (Bld) [#/Vol] 0.1 10*3/uL High NINF - 0.1 10*3/uL [facility] Immature granulocytes/100 WBC (Bld) 0.6 % 0.0 - 2.0 % [facility] Interpretation and review of laboratory results Abnormal [facility] Lymphocytes (Bld) [#/Vol] 0.7 10*3/uL Low 1.0 - 4.3 10*3/uL [facility] Lymphocytes/100 WBC (Bld) 7.1 % Low 15.0 - 45.0 % [facility] MCH (RBC) [Entitic mass] 28.9 pg 26.0 - 34.0 pg [facility] MCHC (RBC) [Mass/Vol] 31.5 % 30.5 - 36.0 % [facility] MCV (RBC) [Entitic vol] 91.6 fL 77.0 - 99.0 fL [facility] Monocytes (Bld) [#/Vol] 0.6 10*3/uL 0.0 - 0.9 10*3/uL [facility] Monocytes/100 WBC (Bld) 6.2 % 5.0 - 13.0 % [facility] Neutrophils (Bld) [#/Vol] 8.5 10*3/uL High 1.8 - 7.5 10*3/uL [facility] Neutrophils/100 WBC (Bld) 85.8 % High 38.0 - 82.0 % [facility] Nucleated RBC/100 WBC (Bld) [Ratio] 0.0 % [facility] Platelet mean volume (Bld) [Entitic vol] 10.3 fL 9.0 - 12.7 fL [facility] Platelets (Bld) [#/Vol] 237 10*3/uL 140 - 440 10*3/uL [facility] RBC (Bld) [#/Vol] 2.63 10*6/uL Low 3.80 - 5.2 0 10*6/uL [facility] WBC (Bld) [#/Vol] 10.0 10*3/uL 3.6 - 10.7 10*3/uL [facility] CBC WITH AUTO DIFFERENTIALon 10-06-2023 Basophils (Bld) [#/Vol] 0.0 10*3/uL Normal 0.0-0.2 [facility] Comment on above: Performed By: #### L [id number] ####Vp Medical: ROSALVA LOPEZ ([id number])[facility] ([facility])[address] [place] [address] Basophils/100 WBC (Bld) 0.1 % Normal 0.0-2.0 [facility] Comment on above: Performed By: #### L [id number] ####Vp Medical: ROSALVA LOPEZ ([id number])[facility] ([facility])[address] [place] [address] Eosinophils (Bld) [#/Vol] 0.0 10*3/uL Normal 0.0-0.5 [facility] Comment on above: Performed By: #### L [id number] ####Vp Medical: ROSALVA LOPEZ ([id number])[facility])[address] [place] [address] Eosinophils/100 WBC (Bld) 0.2 % Normal 0.0-6.0 [facility] Comment on above: Performed By: #### L [id number] ####Vp Medical: ROSALVA LOPEZ ([id number])[address] Erythrocyte distribution width (RBC) [Ratio] 14.7 % Normal 11.5-15.0 [facility] Comment on above: Performed By: #### L [id number] ####Vp Medical: ROSALVA LOPEZ ([id number])[address] Hematocrit (Bld) [Volume fraction] 24.1 % Low 35.0-47.0 [facility] Comment on above: Performed By: #### L [id number] ####Vp Medical: ROSALVA LOPEZ ([id number])[address] Hemoglobin (Bld) [Mass/Vol] 7.6 g/dL Low 11.7-16.0 [facility] Comment on above: Performed By: #### L [id number] ####Vp Medical: ROSALVA LOPEZ ([id number])[facility])[address] [place] [address] IMMATURE GRANS % 0.6 % Normal 0.0-2.0 [facility] Comment on above: Performed By: #### L [id number] ####Vp Medical: ROSALVA LOPEZ ([id number])[address] IMMATURE GRANS ABSOLUTE 0.1 10*3/uL High <0.1 [facility] Comment on above: Performed By: #### L [id number] ####Vp Medical: ROSALVA LOPEZ ([id number])[facility])[address] [place] [address] Lymphocytes (Bld) [#/Vol] 0.7 10*3/uL Low 1.0-4.3 [facility] Comment on above: Performed By: #### L [id number] ####Vp Medical: ROSALVA LOPEZ ([id number])[facility])[address] [place] [address] Lymphocytes/100 WBC (Bld) 7.1 % Low 15.0-45.0 [facility] Comment on above: Performed By: #### L [id number] ####Vp Medical: ROSALVA LOPEZ ([id number])[facility])[address] [place] [address] MCH (RBC) [Entitic mass] 28.9 pg Normal 26.0-34.0 [facility] Comment on above: Performed By: #### L [id number] ####Vp Medical: ROSALVA LOPEZ ([id number])[facility])[address] [place] [address] MCHC 31.5 % Normal 30.5-36.0 [facility] Comment on above: Performed By: #### L [id number] ####Vp Medical: ROSALVA LOPEZ ([id number])[facility])[address] [place] [address] MCV (RBC) [Entitic vol] 91.6 fL Normal 77.0-99.0 [facility] Comment on above: Performed By: #### L [id number] ####Vp Medical: ROSALVA LOPEZ ([id number])[facility])[address] [place] [address] Monocytes (Bld) [#/Vol] 0.6 10*3/uL Normal 0.0-0.9 [facility] Comment on above: Performed By: #### L [id number] ####Vp Medical: ROSALVA LOPEZ ([id number])[facility])[address] [place] [address] Monocytes/100 WBC (Bld) 6.2 % Normal 5.0-13.0 [facility] Comment on above: Performed By: #### L [id number] ####Vp Medical: ROSALVA LOPEZ ([id number])[facility] ([facility])[address] [place] [address] NEUTROPHILS ABSOLUTE 8.5 10*3/uL High 1.8-7.5 [facility] Comment on above: Performed By: #### L [id number] ####Vp Medical: ROSALVA LOPEZ ([id number])[facility] ([facility])[address] [place] [address] Neutrophils/100 WBC (Bld) 85.8 % High 38.0-82.0 [facility] Comment on above: Performed By: #### L [id number] ####Vp Medical: ROSALVA LOPEZ ([id number])[facility] ([facility])[address] [place] [address] NRBC 0.0 /100 WBCs Normal 0.0-2.0 [facility] Comment on above: Performed By: #### L [id number] ####Vp Medical: ROSALVA LOPEZ ([id number])[facility] ([facility])[address] [place] [address] Platelet mean volume (Bld) [Entitic vol] 10.3 fL Normal 9.0-12.7 [facility] Comment on above: Performed By: #### L [id number] ####Vp Medical: ROSALVA LOPEZ ([id number])[facility] ([facility])[address] [place] [address] [place] Platelets (Bld) [#/Vol] 237 10*3/uL Normal 140-440 [facility] Comment on above: Performed By: #### L [id number] ####Vp Medical: ROSALVA LOPEZ ([id number])[facility] ([facility])[address] [place] [address] [place] RBC (Bld) [#/Vol] 2.63 10*6/uL Low 3.80-5.20 [facility] Comment on above: Performed By: #### L [id number] ####Vp Medical: ROSALVA LOPEZ ([id number])[facility] ([facility])[address] [place] [address] WBC (Bld) [#/Vol] 10.0 10*3/uL Normal 3.6-10.7 [facility] Comment on above: Performed By: #### L [id number] ####Vp Medical: ROSALVA LOPEZ ([id number])[facility])[address] [place] [address] ECG 12-LEADon 10-06-2023 ECG 12-LEAD IMPRESSION: Sinus tachycardia Ventricular premature complex Abnormal inferior Q waves Electronically Signed On 10-06-2023 12:02:07 EDT by Joy Galeano [facility] Laboratory - Chemistry and C hemistry - challengeon 10-06-2023 Base excess Calc (Bld) [Moles/Vol] 7.2 mmol/L High -3.0 - 3.0 mmol/L [facility] CO2 (Bld) [Partial pressure] 60.6 mm[Hg] High - PINF [facility] CO2 [Moles/Vol] 35.5 mmol/L High 23.0 - 27.0 mmol/L [facility] HCO3 (Bld) [Moles/Vol] 33.6 mmol/L High 21.0 - 25.0 mmol/L [facility] Oxygen (Bld) [Partial pressure] 361.3 mm[Hg] High [facility] pH (Bld) 7.362 [pH] 7.350 - 7.450 [facility] Magnesium [Mass/Vol] 1.6 mg/dL 1.6 - 2 .3 mg/dL [facility] Laboratory - Hematology and Cell countson 10-06-2023 Hemoglobin (Bld) [Mass/Vol] 8.0 g/dL Screen Only [facility] MAGNESIUMon 10-06-2023 Magnesium [Mass/Vol] 1.6 mg/dL Normal 1.6-2.3 [facility] Comment on above: Performed By: #### L [id number], [id number], [id number] ####Vp Medical: ROSALVA LOPEZ ([id number])[facility] ([facility])[address] [place] [address] No Panel InformationOrdered By: Joy Martínez on 10-06-2023 P [place] 71 degrees [facility] Work Phone: NV Interval 119 ms [facility] [employer] Work Phone: QRS [place] 54 degrees [facility] Work Phone: QRSD Interval 95 ms [facility] Work Phone: QT Interval 346 ms [facility] Work Phone: QTC Interval 450 ms [facility] Work Phone: T Wave [place] 43 degrees [facility] Work Phone: [facility] Work Phone: No Panel Informationon 10-05 CV EPIPHANY [facility] Interpretation and review of laboratory results Abnormal [facility] Source Of Oxygen Vent [facility] [employer] Interpretation and review of laboratory results Normal [facility] [employer] PHOSPHORUSon 10-06-2023 Phosphate [Mass/Vol] 4.0 mg/dL Normal 2.5-4.5 [facility] Comment on above: Performed By: #### L [id number], [id number], LAB15 ####Vp Medical: ROSALVA LOPEZ ([id number])[facility] ([facility])[address] [place] [address] Phosphate [Moles/Vol]on Phosphate [Mass/Vol] 4.0 mg/dL 2.5 - 4 .5 mg/dL [facility] Progress Noteon 10-06-2023 Progress Note Normal [facility] Progress Note Normal [facility] Progress Note Normal [facility] Vital signsOrdered By: Joy Martínez on 10-06-2023 Heart rate 101 /min bpm [facility] [employer] Work Phone: BASIC METABOLIC PANELon Anion gap [Moles/Vol] 8 mmol/L Normal 3-13 [facility] Comment on above: Performed By: #### L AB15, [id number], [id number] ####Vp Medical: ROSALVA LOPEZ ([id number])[facility] ([facility])[address] [place] [address] Calcium [Mass/Vol] 8.9 mg/dL Normal 8.4-10.4 [facility] Comment on above: Performed By: #### L AB15, [id number], [id number] ####Vp Medical: ROSALVA LOPEZ ([id number])[facility] ([facility])[address] [place] [address] Chloride [Moles/Vol] 102 mmol/L Normal 98-107 [facility] Comment on above: Performed By: #### L AB15, [id number], [id number] ####Vp Medical: ROSALVA LOPEZ ([id number])[facility])[address] [place] [address] CO2 [Moles/Vol] 33 mmol/L High 22-30 [facility] Comment on above: Performed By: #### L AB15, [id number], [id number] ####Vp Medical: ROSALVA LOPEZ ([id number])[facility])[address] [place] [address] Creatinine [Mass/Vol] 0.59 mg/dL Normal 0.52-1.04 [facility] Comment on above: Performed By: #### L AB15, [id number], [id number] ####Vp Medical: ROSALVA LOPEZ ([id number])[facility] ([facility])[address] [place] [address] GLOMERULAR FILTRATION RATE ML/MIN/1.73 SQ M.PREDICTED >90.0 Normal >60.0 [facility] Comment on above: Result Comment: Calc ulation based on the Chronic Kidney Disease Epidemiology Collaboration (CKD-EPI) equation refit without adjustment for race Performed By: #### L AB15, [id number], [id number] ####Vp Medical: ROSALVA LOPEZ ([id number])[facility] ([facility])[address] [place] [address] [place] Glucose [Mass/Vol] 115 mg/dL High 70-100 [facility] Comment on above: Performed By: #### L AB15, [id number], [id number] ####Vp Medical: ROSALVA LOPEZ ([id number])[facility])[address] [place] [address] Potassium [Moles/Vol] 3.2 mmol/L Low 3.5-5.1 [facility] Comment on above: Performed By: #### L AB15, [id number], [id number] ####Vp Medical: ROSALVA LOPEZ ([id number])[facility] ([facility])[address] [place] [address] Sodium [Moles/Vol] 142 mmol/L Normal 135-145 [facility] Comment on above: Performed By: #### L AB15, [id number], [id number] ####Vp Medical: ROSALVA LOPEZ ([id number])[facility] ([facility])[address] [place] [address] Urea nitrogen [Mass/Vol] 15 mg/dL Normal 7-17 [facility] Comment on above: Performed By: #### L AB15, [id number], [id number] ####Vp Medical: ROSALVA LOPEZ ([id number])[facility])[address] [place] [address] BLOOD GAS ARTERIALon 024 Base excess Calc (Bld) [Moles/Vol] 7.1 mmol/L High -3.0-3.0 [facility] Comment on above: Performed By: #### L [id number] ####Vp Medical: ROSALVA LOPEZ ([id number])[facility] ([facility])[address] [place] [address] [place] CO2 [Moles/Vol] 33.1 mmol/L High 23.0-27.0 [facility] Comment on above: Performed By: #### L [id number] ####Vp Medical: ROSALVA LOPEZ ([id number])[facility])[address] [place] [address] HCO3 (Bld) [Moles/Vol] 31.7 mmol/L High 21.0-25.0 [facility] Comment on above: Performed By: #### L [id number] ####Vp Medical: ROSALVA LOPEZ ([id number])[facility])[address] [place] [address] Hemoglobin (Bld) [Mass/Vol] 7.5 g/dL Normal Screen Only [facility] Comment on above: Performed By: #### L [id number] ####Vp Medical: ROSALVA LOPEZ ([id number])[facility])[address] [place] [address] OXYGEN SATURATION (%) IN ARTERIAL BLOOD 98.0 % Normal 95.0-100.0 [facility] Comment on above: Performed By: #### L [id number] ####Vp Medical: ROSALVA LOPEZ ([id number])[facility] ([facility])[address] [place] [address] PCO2 ARTERIAL 45.7 mm Hg High >35.0-<45.0 [facility] Comment on above: Performed By: #### L [id number] ####Vp Medical: ROSALVA LOPEZ ([id number])[facility])[address] [place] [address] PH ARTERIAL 7.459 High 7.350-7.450 [facility] Comment on above: Performed By: #### L [id number] ####Vp Medical: ROSALVA LOPEZ ([id number])[facility] ([facility])[address] [place] [address] PO2 ARTERIAL 117.0 mm Hg High 80.0-100.0 [facility] Comment on above: Performed By: #### L [id number] ####Vp Medical: ROSALVA LOPEZ ([id number])[facility])[address] [place] [address] SOURCE OF OXYGEN 40% Oxygen Normal [facility] Comment on above: Performed By: #### L [id number] ####Vp Medical: ROSALVA LOPEZ ([id number])[facility] ([facility])[address] [place] [address] [place] Bacteria identified Aer cx N om (Lower resp)Ordered By: Daniel Medrano on 10-05-2023 Gram Stain Result Few Polymorphonuclea r leukocytes per low power field [facility] Gram Stain Result Rare Epithelial cell s per low power field [facility] Gram Stain Result No organisms seen [facility] Basic metabolic 1998 panelon 10-05-2023 Anion gap [Moles/Vol] 8 mmol/L 3 - 13 mmol/L [facility] Calcium [Mass/Vol] 8.9 mg/dL 8.4 - 10. 4 mg/dL [facility] Chloride [Moles/Vol] 102 mmol/L 98 - 10 7 mmol/L [facility] CO2 [Moles/Vol] 33 mmol/L High 22 - 30 mmol/L [facility] Creatinine [Mass/Vol] 0.59 mg/dL 0.52 - 1.04 mg/dL [facility] GFR/1.73 sq M.predicted MDRD (S/P/Bld) [Vol rate/Area] - PINF [facility] Glucose [Mass/Vol] 115 mg/dL High 70 - 100 mg/dL [facility] Interpretation and review of laboratory results Abnormal [facility] Potassium [Moles/Vol] 3.2 mmol/L Low 3.5 - 5.1 mmol/L [facility] Sodium [Moles/Vol] 142 mmol/L 135 - 145 mmol/L [facility] Urea nitrogen [Mass/Vol] 15 mg/dL 7 - 17 mg/dL [facility] CARECOORDon 10-05-2023 CAR[place]OORD Normal [facility] CBC W Auto Differential pane l (Bld)on 10-05-2023 Basophils (Bld) [#/Vol] 0.0 10*3/uL 0.0 - 0.2 10*3/uL [facility] Basophils/100 WBC (Bld) 0.2 % 0.0 - 2.0 % [facility] Eosinophils (Bld) [#/Vol] 0.1 10*3/uL 0.0 - 0.5 10*3/uL [facility] Eosinophils/100 WBC (Bld) 1.3 % 0.0 - 6.0 % [facility] Erythrocyte distribution width (RBC) [Ratio] 14.3 % 11.5 - 15.0 % [facility] Hematocrit (Bld) [Volume fraction] 19.3 % Low 35.0 - 47.0 % [facility] Hemoglobin (Bld) [Mass/Vol] 6.0 g/dL Critically low 11.7 - 16.0 g/dL [facility] Immature granulocytes (Bld) [#/Vol] 0.0 10*3/uL NINF - 0.1 10*3/uL [facility] Immature granulocytes/100 WBC (Bld) 0.6 % 0.0 - 2.0 % [facility] Interpretation and review of laboratory results Abnormal [facility] Lymphocytes (Bld) [#/Vol] 0.8 10*3/uL Low 1.0 - 4.3 10*3/uL [facility] Lymphocytes/100 WBC (Bld) 15.8 % 15.0 - 45.0 % [facility] MCH (RBC) [Entitic mass] 28.6 pg 26.0 - 34.0 pg [facility] MCHC (RBC) [Mass/Vol] 31.1 % 30.5 - 36.0 % [facility] MCV (RBC) [Entitic vol] 91.9 fL 77.0 - 99.0 fL [facility] Monocytes (Bld) [#/Vol] 0.4 10*3/uL 0.0 - 0.9 10*3/uL [facility] Monocytes/100 WBC (Bld) 8.3 % 5.0 - 13.0 % [facility] Neutrophils (Bld) [#/Vol] 3.9 10*3/uL 1.8 - 7.5 10*3/uL [facility] Neutrophils/100 WBC (Bld) 73.8 % 38.0 - 82.0 % [facility] Nucleated RBC/100 WBC (Bld) [Ratio] 0.0 % [facility] Platelet mean volume (Bld) [Entitic vol] 10.4 fL 9.0 - 12.7 fL [facility] Platelets (Bld) [#/Vol] 183 10*3/uL 140 - 440 10*3/uL [facility] RBC (Bld) [#/Vol] 2.10 10*6/uL Low 3.80 - 5.2 0 10*6/uL [facility] WBC (Bld) [#/Vol] 5.3 10*3/uL 3.6 - 10.7 10*3/uL [facility] CBC WITH AUTO DIFFERENTIALon 10-05-2023 Basophils (Bld) [#/Vol] 0.0 10*3/uL Normal 0.0-0.2 [facility] Comment on above: Performed By: #### L [id number] ####Vp Medical: ROSALVA LOPEZ ([id number])[facility])[address] [place] [address] Basophils/100 WBC (Bld) 0.2 % Normal 0.0-2.0 [facility] Comment on above: Performed By: #### L [id number] ####Vp Medical: ROSALVA LOPEZ ([id number])[facility])[address] [place] [address] Eosinophils (Bld) [#/Vol] 0.1 10*3/uL Normal 0.0-0.5 [facility] Comment on above: Performed By: #### L [id number] ####Vp Medical: ROSALVA LOPEZ ([id number])[facility])[address] [place] [address] Eosinophils/100 WBC (Bld) 1.3 % Normal 0.0-6.0 [facility] Comment on above: Performed By: #### L [id number] ####Vp Medical: ROSALVA LOPEZ ([id number])[facility])[address] [place] [address] Erythrocyte distribution width (RBC) [Ratio] 14.3 % Normal 11.5-15.0 [facility] Comment on above: Performed By: #### L [id number] ####[facility]: ROSALVA LOPEZ ([id number])[facility])[address] [place] [address] Hematocrit (Bld) [Volume fraction] 19.3 % Low 35.0-47.0 [facility] Comment on above: Performed By: #### L [id number] ####[facility]: ROSALVA LOPEZ ([id number])[facility])[address] [place] [address] Hemoglobin (Bld) [Mass/Vol] 6.0 g/dL Critically low 11.7-16.0 [facility] Comment on above: Performed By: #### L [id number] ####[facility]: ROSALVA LOPEZ ([id number])[facility])[address] [place] [address] IMMATURE GRANS % 0.6 % Normal 0.0-2.0 [facility] Comment on above: Performed By: #### L [id number] ####[facility]: ROSALVA LOPEZ ([id number])[facility])[address] [place] [address] IMMATURE GRANS ABSOLUTE 0.0 10*3/uL Normal <0.1 [facility] Comment on above: Performed By: #### L [id number] ####[facility]: ROSALVA LOPEZ ([id number])[address] Lymphocytes (Bld) [#/Vol] 0.8 10*3/uL Low 1.0-4.3 [facility] Comment on above: Performed By: #### L [id number] ####[facility]: ROSALVA LOPEZ ([id number])[address] Lymphocytes/100 WBC (Bld) 15.8 % Normal 15.0-45.0 [facility] Comment on above: Performed By: #### L [id number] ####[facility]: ROSALVA LOPEZ ([id number])[address] MCH (RBC) [Entitic mass] 28.6 pg Normal 26.0-34.0 [facility] Comment on above: Performed By: #### L [id number] ####Vp Medical: ROSALVA LOPEZ ([id number])[address] MCHC 31.1 % Normal 30.5-36.0 [facility] Comment on above: Performed By: #### L [id number] ####Vp Medical: ROSALVA [id number])[facility])[address] [place] [address] MCV (RBC) [Entitic vol] 91.9 fL Normal 77.0-99.0 [facility] Comment on above: Performed By: #### L [id number] ####Vp Medical: ROSALVA LOPEZ ([id number])[facility])[address] [place] [address] Monocytes (Bld) [#/Vol] 0.4 10*3/uL Normal 0.0-0.9 [facility] Comment on above: Performed By: #### L [id number] ####Vp Medical: ROSALVA LOPEZ ([id number])[facility])[address] [place] [address] Monocytes/100 WBC (Bld) 8.3 % Normal 5.0-13.0 [facility] Comment on above: Performed By: #### L [id number] ####Vp Medical: ROSALVA LOPEZ ([id number])[facility] ([facility])[address] [place] [address] NEUTROPHILS ABSOLUTE 3.9 10*3/uL Normal 1.8-7.5 [facility] Comment on above: Performed By: #### L [id number] ####Vp Medical: ROSALVA LOPEZ ([id number])[facility])[address] [place] [address] Neutrophils/100 WBC (Bld) 73.8 % Normal 38.0-82.0 [facility] Comment on above: Performed By: #### L [id number] ####Vp Medical: ROSALVA LOPEZ ([id number])[facility] ([facility])[address] [place] [address] NRBC 0.0 /100 WBCs Normal 0.0-2.0 [facility] Comment on above: Performed By: #### L [id number] ####Vp Medical: ROSALVA LOPEZ ([id number])[facility] ([facility])[address] [place] [address] Platelet mean volume (Bld) [Entitic vol] 10.4 fL Normal 9.0-12.7 [facility] Comment on above: Performed By: #### L [id number] ####Vp Medical: ROSALVA LOPEZ ([id number])[facility])[address] [place] [address] Platelets (Bld) [#/Vol] 183 10*3/uL Normal 140-440 [facility] Comment on above: Performed By: #### L [id number] ####Vp Medical: ROSALVA LOPEZ ([id number])[facility])[address] [place] [address] RBC (Bld) [#/Vol] 2.10 10*6/uL Low 3.80-5.20 [facility] Comment on above: Performed By: #### L [id number] ####Vp Medical: ROSALVA LOPEZ ([id number])[facility])[address] [place] [address] WBC (Bld) [#/Vol] 5.3 10*3/uL Normal 3.6-10.7 [facility] Comment on above: Performed By: #### L [id number] ####Vp Medical: ROSALVA LOPEZ ([id number])[facility])[address] [place] [address] Consulton 10-05-2023 Consult Normal [facility] HEMOGLOBIN AND HEMATOCRIT, B LOODon 10-05-2023 Hematocrit (Bld) [Volume fraction] 22.6 % Low 35.0-47.0 [facility] Comment on above: Order Comment: Recom mend 1 hour post transfusion Performed By: #### L [id number] ####Vp Medical: ROSALVA LPOEZ ([id number])[facility])[address] [place] [address] Hemoglobin (Bld) [Mass/Vol] 7.2 g/dL Low 11.7-16.0 [facility] Comment on above: Order Comment: Recom mend 1 hour post transfusion Performed By: #### L [id number] ####Vp Medical: ROSALVA [id number])[facility] ([facility])[address] [place] [address] Hemoglobin (Bld) [Mass/Vol]O rdered By: Nancy Moran on 10-05-2023 Hematocrit (Bld) [Volume fraction] 22.6 % Low 35.0 - 47.0 % [facility] Interpretation and review of laboratory results Abnormal [facility] LACTIC ACID WITH REFLEXon Lactate [Moles/Vol] 0.6 mmol/L Low 0.7-2.0 [facility] Comment on above: Performed By: #### L [id number] ####Vp Medical: ROSALVA LOPEZ ([id number])[facility])[address] [place] [address] Laboratory - Chemistry and C hemistry - challengeon 10-05-2023 Magnesium [Mass/Vol] 1.6 mg/dL 1.6 - 2 .3 mg/dL [facility] Lactate [Moles/Vol] 0.6 mmol/L Low 0.7 - 2. 0 mmol/L [facility] Base excess Calc (Bld) [Moles/Vol] 7.1 mmol/L High -3.0 - 3.0 mmol/L [facility] CO2 (Bld) [Partial pressure] 45.7 mm[Hg] High - PINF [facility] CO2 [Moles/Vol] 33.1 mmol/L High 23.0 - 27.0 mmol/L [facility] HCO3 (Bld) [Moles/Vol] 31.7 mmol/L High 21.0 - 25.0 mmol/L [facility] Oxygen (Bld) [Partial pressure] 117.0 mm[Hg] High [facility] pH (Bld) 7.459 [pH] High 7.350 - 7.450 [facility] - Hematology and Cell countsOrdered By: Nancy Moran on 10-05-2023 Hemoglobin (Bld) [Mass/Vol] 7.2 g/dL Low 11.7 - 16.0 g/dL [facility] - Hematology and Cell countson 10-05-2023 Hemoglobin (Bld) [Mass/Vol] 7.5 g/dL Screen Only [facility] - Microbiology an d Antimicrobial susceptibilityOrdered By: Daniel Medrano on 10-05-2023 Bacteria identified Aer cx Nom (Lower resp) Rare respiratory ailyn present. [facility] MAGNESIUMon 10-05-2023 Magnesium [Mass/Vol] 1.6 mg/dL Normal 1.6-2.3 [facility] Comment on above: Performed By: #### L AB15, [id number], [id number] ####Vp Medical: ROSALVA LOPEZ ([id number])[facility])[address] [place] [address] No Panel Informationon 10-04 [facility] Blood Expiration Date S [facility] Crossmatch interpretation COMP [facility] Dispense Status Transfused [facility] [employer] Product Blood Type 6200 [facility] [employer] PRODUCT CODE [id number] [facility] ABO A [facility] Number [id number] [facility] RH Positive [facility] Volume 300 mL [facility] Interpretation and review of laboratory results Normal [facility] Interpretation and review of laboratory results Abnormal [facility] Interpretation and review of laboratory results Abnormal [facility] Source Of Oxygen 40% Oxygen [facility] No Panel InformationOrdered By: Seth Decker on 10-05-2023 [facility] [employer] Work Phone: PHOSPHORUSon 10-05-2023 Phosphate [Mass/Vol] 2.7 mg/dL Normal 2.5-4.5 [facility] Comment on above: Performed By: #### L AB15, [id number], [id number] ####Vp Medical: ROSALVA LOPEZ ([id number])[facility])[address] [place] [address] Phosphate [Moles/Vol]on Phosphate [Mass/Vol] 2.7 mg/dL 2.5 - 4 .5 mg/dL [facility] Progress Noteon 10-05-2023 Progress Note Physician called to bedside due to increased heart rate and decreased tidal volumes on the vent. Patient bronched at bedside. Irritation in the airways noted. Patient improved post bronch. Normal [facility] Progress Note Normal [facility] Progress Note Normal [facility] Progress Note Normal [facility] Progress Note Normal [facility] Progress Note Normal [facility] Progress Note Normal [facility] Progress Note Normal [facility] XR ABDOMEN 1 VIEWon 10-05-19 24 XR ABDOMEN 1 VIEW Normal [facility] XR Abdomen Single viewon [facility] Radiology Study observation (narrative) [facility] XR Abdomen Single viewOrdere d By: Saray Rosario on 10-05-2023 [facility] [employer] Work Phone: XR CHEST 1 VIEWon 10-05-2023 XR CHEST 1 VIEW Normal [facility] XR CHEST 1 VIEW Normal [facility] XR Chest Single viewon 10-04 [facility] Radiology Study observation (narrative) [facility] RADIOLOGY [facility] Radiology Study observation (narrative) [facility] [id number] 10-04-2023 [id number] Normal [facility] ABO and Rh group Confirm Nom (Bld)on 10-04-2023 ABO group Nom (Bld) A [facility] D Ag Ql (RBC) Positive [facility] Anesthesia Noteon 10-04-2023 Anesthesia Note Normal [facility] Anesthesia Note Normal [facility] BASIC METABOLIC PANELon Anion gap [Moles/Vol] 8 mmol/L Normal 3-13 [facility] Comment on above: Performed By: #### L AB103, LAB15, [id number] ####Vp Medical: ROSALVA LOPEZ ([id number])[facility])[address] [place] [address] Calcium [Mass/Vol] 8.9 mg/dL Normal 8.4-10.4 [facility] Comment on above: Performed By: #### L AB103, LAB15, [id number] ####Vp Medical: ROSALVA LOPEZ ([id number])[facility])[address] [place] [address] Chloride [Moles/Vol] 103 mmol/L Normal 98-107 [facility] Comment on above: Performed By: #### L AB103, LAB15, [id number] ####Vp Medical: ROSALVA LOPEZ ([id number])[facility])[address] [place] [address] CO2 [Moles/Vol] 29 mmol/L Normal 22-30 [facility] Comment on above: Performed By: #### L AB103, LAB15, [id number] ####Vp Medical: ROSALVA LOPEZ ([id number])[facility])[address] [place] [address] Creatinine [Mass/Vol] 0.45 mg/dL Low 0.52-1.04 [facility] Comment on above: Performed By: #### L AB103, LAB15, QED650 ####Vp Medical: ROSALVA LOPEZ ([id number])[facility])[address] [place] [address] GLOMERULAR FILTRATION RATE ML/MIN/1.73 SQ M.PREDICTED >90.0 Normal >60.0 [facility] Comment on above: Result Comment: Calc ulation based on the Chronic Kidney Disease Epidemiology Collaboration (CKD-EPI) equation refit without adjustment for race Performed By: #### L AB103, LAB15, [id number] ####Vp Medical: ROSALVA LOPEZ ([id number])[facility])[address] [place] [address] Glucose [Mass/Vol] 102 mg/dL High 70-100 [facility] Comment on above: Performed By: #### L AB103, LAB15, [id number] ####Vp Medical: ROSALVA LOPEZ ([id number])[facility])[address] [place] [address] Potassium [Moles/Vol] 3.4 mmol/L Low 3.5-5.1 [facility] Comment on above: Performed By: #### L AB103, LAB15, THM071 ####Vp Medical: ROSALVA LOPEZ ([id number])[facility])[address] [place] [address] Sodium [Moles/Vol] 140 mmol/L Normal 135-145 [facility] Comment on above: Performed By: #### L AB103, LAB15, HCI597 ####Vp Medical: ROSALVA LOPEZ ([id number])[facility])[address] [place] [address] Urea nitrogen [Mass/Vol] 15 mg/dL Normal 7-17 [facility] Comment on above: Performed By: #### L AB103, LAB15, [id number] ####Vp Medical: ROSALVA LOPEZ ([id number])[facility])[address] [place] [address] BLOOD GAS ARTERIALon 024 Base excess Calc (Bld) [Moles/Vol] 3.1 mmol/L High -3.0-3.0 [facility] Comment on above: Performed By: #### L AB76 ####Vp Medical: ROSALVA LOEPZ ([id number])[facility])[address] [place] [address] CO2 [Moles/Vol] 29.9 mmol/L High 23.0-27.0 [facility] Comment on above: Performed By: #### L AB76 ####Vp Medical: ROSALVA LOPEZ ([id number])[facility])[address] [place] [address] HCO3 (Bld) [Moles/Vol] 28.5 mmol/L High 21.0-25.0 [facility] Comment on above: Performed By: #### L AB76 ####Vp Medical: ROSALVA LOPEZ ([id number])[facility])[address] [place] [address] Hemoglobin (Bld) [Mass/Vol] 7.7 g/dL Normal Screen Only [facility] Comment on above: Performed By: #### L AB76 ####Vp Medical: ROSALVA LOPEZ ([id number])[facility])[address] [place] [address] OXYGEN SATURATION (%) IN ARTERIAL BLOOD 98.9 % Normal 95.0-100.0 [facility] Comment on above: Performed By: #### L AB76 ####Vp Medical: ROSALVA LOPEZ ([id number])[facility])[address] [place] [address] PCO2 ARTERIAL 48.0 mm Hg High >35.0-<45.0 [facility] Comment on above: Performed By: #### L AB76 ####Vp Medical: ROSALVA LOPEZ ([id number])[facility])[address] [place] [address] PH ARTERIAL 7.391 Normal 7.350-7.450 [facility] Comment on above: Performed By: #### L AB76 ####Vp Medical: ROSALVA LOPEZ ([id number])[facility])[address] [place] [address] PO2 ARTERIAL 164.0 mm Hg High 80.0-100.0 [facility] Comment on above: Performed By: #### L AB76 ####Vp Medical: ROSALVA LOPEZ ([id number])[facility])[address] [place] [address] SOURCE OF OXYGEN 50% Oxygen Normal [facility] Comment on above: Performed By: #### L AB76 ####Vp Medical: ROSALVA LOPEZ ([id number])[facility])[address] [place] [address] BLOOD TYPE AND SCREEN GELon 10-04-2023 ABO GROUPING A Normal [facility] Comment on above: Performed By: #### L [id number] ####Vp Medical: ROSALVA LOPEZ ([id number])[facility] ([facility])[address] [place] [address] RH TYPE IN BLOOD Positive Normal [facility] Comment on above: Performed By: #### L [id number] ####Vp Medical: ROSALVA LOPEZ ([id number])[facility] ([facility])[address] [place] [address] Basic metabolic 1998 panelon 10-04-2023 Anion gap [Moles/Vol] 8 mmol/L 3 - 13 mmol/L [facility] Calcium [Mass/Vol] 8.9 mg/dL 8.4 - 10. 4 mg/dL [facility] Chloride [Moles/Vol] 103 mmol/L 98 - 10 7 mmol/L [facility] CO2 [Moles/Vol] 29 mmol/L 22 - 30 mmol/L [facility] Creatinine [Mass/Vol] 0.45 mg/dL Low 0.52 - 1.04 mg/dL [facility] GFR/1.73 sq M.predicted MDRD (S/P/Bld) [Vol rate/Area] - PINF [facility] Glucose [Mass/Vol] 102 mg/dL High 70 - 100 mg/dL [facility] Interpretation and review of laboratory results Abnormal [facility] Potassium [Moles/Vol] 3.4 mmol/L Low 3.5 - 5.1 mmol/L [facility] Sodium [Moles/Vol] 140 mmol/L 135 - 145 mmol/L [facility] Urea nitrogen [Mass/Vol] 15 mg/dL 7 - 17 mg/dL [facility] Blood type and Crossmatch galo vázquez (Bld)on 10-04-2023 ABO group Nom (Bld) A [facility] Blood group antibody screen GEL Ql Negative [facility] D Ag Ql (RBC) Positive [facility] CARECOORDon 10-04-2023 CARECOORD Normal [facility] CARECONUCLA Notes reviewed, was extubated but required re-intubation, plans for open trach and peg today Official return tomorrow Normal [facility] CBC W Auto Differential pane l (Bld)Ordered By: Jenni Marsh on 10-04-2023 Basophils (Bld) [#/Vol] 0.0 10*3/uL 0.0 - 0.2 10*3/uL [facility] Basophils/100 WBC (Bld) 0.2 % 0.0 - 2.0 % [facility] Eosinophils (Bld) [#/Vol] 0.2 10*3/uL 0.0 - 0.5 10*3/uL [facility] Eosinophils/100 WBC (Bld) 2.7 % 0.0 - 6.0 % [facility] Erythrocyte distribution width (RBC) [Ratio] 14.4 % 11.5 - 15.0 % [facility] Hematocrit (Bld) [Volume fraction] 22.0 % Low 35.0 - 47.0 % [facility] Hemoglobin (Bld) [Mass/Vol] 6.9 g/dL Critically low 11.7 - 16.0 g/dL [facility] Immature granulocytes (Bld) [#/Vol] 0.1 10*3/uL High NINF - 0.1 10*3/uL [facility] Immature granulocytes/100 WBC (Bld) 0.6 % 0.0 - 2.0 % [facility] Interpretation and review of laboratory results Abnormal [facility] Lymphocytes (Bld) [#/Vol] 1.7 10*3/uL 1.0 - 4.3 10*3/uL [facility] Lymphocytes/100 WBC (Bld) 20.2 % 15.0 - 45.0 % [facility] MCH (RBC) [Entitic mass] 29.0 pg 26.0 - 34.0 pg [facility] MCHC (RBC) [Mass/Vol] 31.4 % 30.5 - 36.0 % [facility] MCV (RBC) [Entitic vol] 92.4 fL 77.0 - 99.0 fL [facility] Monocytes (Bld) [#/Vol] 1.0 10*3/uL High 0.0 - 0.9 10*3/uL [facility] Monocytes/100 WBC (Bld) 12.0 % 5.0 - 13.0 % [facility] Neutrophils (Bld) [#/Vol] 5.3 10*3/uL 1.8 - 7.5 10*3/uL [facility] Neutrophils/100 WBC (Bld) 64.3 % 38.0 - 82.0 % [facility] Nucleated RBC/100 WBC (Bld) [Ratio] 0.0 % [facility] Platelet mean volume (Bld) [Entitic vol] 10.9 fL 9.0 - 12.7 fL [facility] Platelets (Bld) [#/Vol] 219 10*3/uL 140 - 440 10*3/uL [facility] RBC (Bld) [#/Vol] 2.38 10*6/uL Low 3.80 - 5.2 0 10*6/uL [facility] WBC (Bld) [#/Vol] 8.2 10*3/uL 3.6 - 10.7 10*3/uL [facility] CBC WITH AUTO DIFFERENTIALon 10-04-2023 Basophils (Bld) [#/Vol] 0.0 10*3/uL Normal 0.0-0.2 [facility] Comment on above: Performed By: #### L [id number] ####Vp Medical: ROSALVA LOPEZ ([id number])[facility])[address] [place] [address] Basophils/100 WBC (Bld) 0.2 % Normal 0.0-2.0 [facility] Comment on above: Performed By: #### L [id number] ####Vp Medical: ROSALVA LOPEZ ([id number])[facility])[address] [place] [address] Eosinophils (Bld) [#/Vol] 0.2 10*3/uL Normal 0.0-0.5 [facility] Comment on above: Performed By: #### L [id number] ####Vp Medical: ROSALVA LOPEZ ([id number])[facility])[address] [place] [address] Eosinophils/100 WBC (Bld) 2.7 % Normal 0.0-6.0 [facility] Comment on above: Performed By: #### L [id number] ####Vp Medical: ROSALVA LOPEZ ([id number])[facility])[address] [place] [address] Erythrocyte distribution width (RBC) [Ratio] 14.4 % Normal 11.5-15.0 [facility] Comment on above: Performed By: #### L [id number] ####Vp Medical: ROSALVA LOPEZ ([id number])[facility])[address] [place] [address] Hematocrit (Bld) [Volume fraction] 22.0 % Low 35.0-47.0 [facility] Comment on above: Performed By: #### L [id number] ####Vp Medical: ROSALVA LOPEZ ([id number])[facility])[address] [place] [address] Hemoglobin (Bld) [Mass/Vol] 6.9 g/dL Critically low 11.7-16.0 [facility] Comment on above: Performed By: #### L [id number] ####Vp Medical: ROSALVA LOEPZ ([id number])[facility])[address] [place] [address] IMMATURE GRANS % 0.6 % Normal 0.0-2.0 [facility] Comment on above: Performed By: #### L [id number] ####Vp Medical: ROSALVA LOPEZ ([id number])[facility])[address] [place] [address] IMMATURE GRANS ABSOLUTE 0.1 10*3/uL High <0.1 [facility] Comment on above: Performed By: #### L [id number] ####Vp Medical: ROSALVA LOPEZ ([id number])[facility])[address] [place] [address] Lymphocytes (Bld) [#/Vol] 1.7 10*3/uL Normal 1.0-4.3 [facility] Comment on above: Performed By: #### L [id number] ####Vp Medical: ROSALVA LOPEZ ([id number])[address] Lymphocytes/100 WBC (Bld) 20.2 % Normal 15.0-45.0 [facility] Comment on above: Performed By: #### L [id number] ####Vp Medical: ROSALVA LOPEZ ([id number])[facility])[address] [place] [address] MCH (RBC) [Entitic mass] 29.0 pg Normal 26.0-34.0 [facility] Comment on above: Performed By: #### L [id number] ####Vp Medical: ROSALVA LOPEZ ([id number])[facility])[address] [place] [address] MCHC 31.4 % Normal 30.5-36.0 [facility] Comment on above: Performed By: #### L [id number] ####Vp Medical: ROSALVA LOPEZ ([id number])[facility])[address] [place] [address] MCV (RBC) [Entitic vol] 92.4 fL Normal 77.0-99.0 [facility] Comment on above: Performed By: #### L [id number] ####Vp Medical: ROSALVA LOPEZ ([id number])[facility])[address] [place] [address] Monocytes (Bld) [#/Vol] 1.0 10*3/uL High 0.0-0.9 [facility] Comment on above: Performed By: #### L [id number] ####Vp Medical: ROSALVA LOPEZ ([id number])[facility])[address] [place] [address] Monocytes/100 WBC (Bld) 12.0 % Normal 5.0-13.0 [facility] Comment on above: Performed By: #### L [id number] ####Vp Medical: ROSALVA LOPEZ ([id number])[facility])[address] [place] [address] NEUTROPHILS ABSOLUTE 5.3 10*3/uL Normal 1.8-7.5 [facility] Comment on above: Performed By: #### L [id number] ####Vp Medical: ROSALVA LOPEZ ([id number])[facility])[address] [place] [address] Neutrophils/100 WBC (Bld) 64.3 % Normal 38.0-82.0 [facility] Comment on above: Performed By: #### L [id number] ####Vp Medical: ROSALVA LOPEZ ([id number])[facility])[address] [place] [address] NRBC 0.0 /100 WBCs Normal 0.0-2.0 [facility] Comment on above: Performed By: #### L [id number] ####Vp Medical: ROSALVA LOPEZ ([id number])[facility])[address] [place] [address] Platelet mean volume (Bld) [Entitic vol] 10.9 fL Normal 9.0-12.7 [facility] Comment on above: Performed By: #### L [id number] ####Vp Medical: ROSALVA LOPEZ ([id number])[facility])[address] [place] [address] Platelets (Bld) [#/Vol] 219 10*3/uL Normal 140-440 [facility] Comment on above: Performed By: #### L [id number] ####[facility]: ROSALVA LOPEZ ([id number])[facility])[address] [place] [address] RBC (Bld) [#/Vol] 2.38 10*6/uL Low 3.80-5.20 [facility] Comment on above: Performed By: #### L [id number] ####[facility]: ROSALVA LOPEZ ([id number])[facility])[address] [place] [address] WBC (Bld) [#/Vol] 8.2 10*3/uL Normal 3.6-10.7 [facility] Comment on above: Performed By: #### L [id number] ####[facility]: ROSALVA LOPEZ ([id number])[facility])[address] [place] [address] ECG 12-LEADon 10-04-2023 ECG 12-LEAD IMPRESSION: Sinus rhythm Possible [facility] AU Electronically Signed On 10-04-2023 14:32:11 EDT by Jil Pedraza [facility] ED Nursing Noteon 10-04-2023 ED Nursing Note MICU Saurabh Villafuerte/ Mildred Armendariz--return 10/03 C- colon dilation, rectal stool G-open trach 10/03 [facility] HEMOGLOBIN AND HEMATOCRIT, B LOODon 10-04-2023 Hematocrit (Bld) [Volume fraction] 22.8 % Low 35.0-47.0 [facility] Comment on above: Performed By: #### L [id number] ####[facility] Medical: ROSALVA LOPEZ ([id number])[facility] ([facility])[address] [place] [address] Hemoglobin (Bld) [Mass/Vol] 7.2 g/dL Low 11.7-16.0 [facility] Comment on above: Performed By: #### L [id number] ####Vp Medical: ROSALVA LOPEZ ([id number])[facility] [place] [address] Hemoglobin (Bld) [Mass/Vol]o n 10-04-2023 Hematocrit (Bld) [Volume fraction] 22.8 % Low 35.0 - 47.0 % [facility] Interpretation and review of laboratory results Abnormal [facility] IDNon 10-04-2023 IDN Normal [facility] Laboratory - Chemistry and C hemistry - challengeon 10-04-2023 Magnesium [Mass/Vol] 1.8 mg/dL 1.6 - 2 .3 mg/dL [facility] Base excess Calc (Bld) [Moles/Vol] 3.1 mmol/L High -3.0 - 3.0 mmol/L [facility] CO2 (Bld) [Partial pressure] 48.0 mm[Hg] High - PINF [facility] CO2 [Moles/Vol] 29.9 mmol/L High 23.0 - 27.0 mmol/L [facility] HCO3 (Bld) [Moles/Vol] 28.5 mmol/L High 21.0 - 25.0 mmol/L [facility] Oxygen (Bld) [Partial pressure] 164.0 mm[Hg] High [facility] pH (Bld) 7.391 [pH] 7.350 - 7.450 [facility] Laboratory - Hematology and Cell countson 10-04-2023 Hemoglobin (Bld) [Mass/Vol] 7.2 g/dL Low 11.7 - 16.0 g/dL [facility] Hemoglobin (Bld) [Mass/Vol] 7.7 g/dL Screen Only [facility] MAGNESIUMon 10-04-2023 Magnesium [Mass/Vol] 1.8 mg/dL Normal 1.6-2.3 [facility] Comment on above: Performed By: #### L AB103, LAB15, [id number] ####Vp Medical: ROSALVA LOPEZ ([id number])[facility] ([facility])[address] [place] [address] No Panel InformationOrdered By: Jil Pedraza on 10-04-2023 P [place] 82 degrees [facility] Work [facility]: NV Interval 128 ms [facility] Work Phone: QRS [place] 68 degrees [facility] Work Phone: QRSD Interval 84 ms [employer] Work Phone: QT Interval 385 ms [facility] Work Phone: QTC Interval 436 ms [employer] Work Phone: T Wave [place] 58 degrees [facility] Work Phone: [employer] Work Phone: No Panel Informationon 10-03 CV EPIPHANY [facility] [employer] Interpretation and review of laboratory results Normal [facility] Interpretation and review of laboratory results Abnormal [facility] [employer] Source Of Oxygen 50% Oxygen [facility] Op Noteon 10-04-2023 Op Note Normal [facility] PHOSPHORUSon 10-04-2023 Phosphate [Mass/Vol] 3.1 mg/dL Normal 2.5-4.5 [facility] Comment on above: Performed By: #### L AB103, LAB15, [id number] ####Vp Medical: ROSALVA LOPEZ ([id number])[facility] ([facility])[address] [place] [address] Phosphate [Moles/Vol]on Phosphate [Mass/Vol] 3.1 mg/dL 2.5 - 4 .5 mg/dL [facility] Progress Noteon 10-04-2023 Progress Note Normal [facility] Progress Note Normal [facility] Progress Note PHYSICAL THERAPY [facility] Name/MRN: Luiza May ([id number]) Date: 10/04/2023 PT held. Patient re-intubated 10/03/23. Currently with orders for strict bedrest. Maribel Murdock, PT Normal [facility] Progress Note Normal [facility] Vital signsOrdered By: Jil Pedraza on 10-04-2023 Heart rate 77 /min bpm [facility] [employer] Work Phone: XR CHEST 1 VIEWon 10-04-2023 XR CHEST 1 VIEW Normal [facility] XR Chest Single viewon 10-03 [facility] Radiology Study observation (narrative) [facility] BASIC METABOLIC PANELon 03-3 Anion gap [Moles/Vol] 7 mmol/L Normal 3-13 [facility] Comment on above: Performed By: #### L AB103, [id number], LAB15 ####Vp Medical: ROSALVA LOPEZ ([id number])[facility])[address] [place] [address] Calcium [Mass/Vol] 9.1 mg/dL Normal 8.4-10.4 [facility] Comment on above: Performed By: #### L AB103, [id number], LAB15 ####Vp Medical: ROSALVA LOPEZ ([id number])[facility] ([facility])[address] [place] [address] [place] Chloride [Moles/Vol] 106 mmol/L Normal 98-107 [facility] Comment on above: Performed By: #### L AB103, [id number], LAB15 ####Vp Medical: ROSALVA LOPEZ ([id number])[facility] ([facility])[address] [place] [address] [place] CO2 [Moles/Vol] 30 mmol/L Normal 22-30 [facility] Comment on above: Performed By: #### L AB103, [id number], LAB15 ####Vp Medical: ROSALVA LOPEZ ([id number])[facility])[address] [place] [address] [place] Creatinine [Mass/Vol] 0.48 mg/dL Low 0.52-1.04 [facility] Comment on above: Performed By: #### L AB103, [id number], LAB15 ####Vp Medical: ROSALVA LOPEZ ([id number])[facility])[address] [place] [address] GLOMERULAR FILTRATION RATE ML/MIN/1.73 SQ M.PREDICTED >90.0 Normal >60.0 [facility] Comment on above: Result Comment: Calc ulation based on the Chronic Kidney Disease Epidemiology Collaboration (CKD-EPI) equation refit without adjustment for race Performed By: #### L AB103, [id number], LAB15 ####Vp Medical: ROSALVA LOPEZ ([id number])[facility])[address] [place] [address] Glucose [Mass/Vol] 109 mg/dL High 70-100 [facility] Comment on above: Performed By: #### L AB103, ZMP005, LAB15 ####Vp Medical: ROSALVA LOPEZ ([id number])[facility])[address] [place] [address] Potassium [Moles/Vol] 3.9 mmol/L Normal 3.5-5.1 [facility] Comment on above: Performed By: #### L AB103, [id number], LAB15 ####Vp Medical: ROSALVA LOPEZ ([id number])[facility])[address] [place] [address] Sodium [Moles/Vol] 142 mmol/L Normal 135-145 [facility] Comment on above: Performed By: #### L AB103, [id number], LAB15 ####Vp Medical: ROSALVA LOPEZ ([id number])[facility])[address] [place] [address] Urea nitrogen [Mass/Vol] 17 mg/dL Normal 7-17 [facility] Comment on above: Performed By: #### L AB103, INO022, LAB15 ####Vp Medical: ROSALVA LOPEZ ([id number])[facility])[address] [place] [address] BLOOD GAS ARTERIALon 024 Base excess Calc (Bld) [Moles/Vol] 1.0 mmol/L Normal -3.0-3.0 [facility] Comment on above: Order Comment: 30 mi ns after intubation Performed By: #### L AB76 ####Vp Medical: ROSALVA LOPEZ ([id number])[facility])[address] [place] [address] CO2 [Moles/Vol] 29.5 mmol/L High 23.0-27.0 [facility] Comment on above: Order Comment: 30 mi ns after intubation Performed By: #### L AB76 ####Vp Medical: ROSALVA LOPEZ ([id number])[facility])[address] [place] [address] HCO3 (Bld) [Moles/Vol] 27.7 mmol/L High 21.0-25.0 [facility] Comment on above: Order Comment: 30 mi ns after intubation Performed By: #### L AB76 ####Vp Medical: ROSALVA LOPEZ ([id number])[facility])[address] [place] [address] Hemoglobin (Bld) [Mass/Vol] 7.8 g/dL Normal Screen Only [facility] Comment on above: Order Comment: 30 mi ns after intubation Performed By: #### L AB76 ####Vp Medical: ROSALVA LOPEZ ([id number])[facility])[address] [place] [address] OXYGEN SATURATION (%) IN ARTERIAL BLOOD 96.8 % Normal 95.0-100.0 [facility] Comment on above: Order Comment: 30 mi ns after intubation Performed By: #### L AB76 ####Vp Medical: ROSALVA LOPEZ ([id number])[facility])[address] [place] [address] PCO2 ARTERIAL 57.0 mm Hg High >35.0-<45.0 [facility] Comment on above: Order Comment: 30 mi ns after intubation Performed By: #### L [id number] ####Vp Medical: ROSALVA LOPEZ ([id number])[facility])[address] [place] [address] PH ARTERIAL 7.305 Low 7.350-7.450 [facility] Comment on above: Order Comment: 30 mi ns after intubation Performed By: #### L AB76 ####Vp Medical: ROSALVA LOPEZ ([id number])[facility])[address] [place] [address] PO2 ARTERIAL 98.9 mm Hg Normal 80.0-100.0 [facility] Comment on above: Order Comment: 30 mi ns after intubation Performed By: #### L AB76 ####Vp Medical: ROSALVA LOPEZ ([id number])[facility])[address] [place] [address] SOURCE OF OXYGEN Vent Normal [facility] Comment on above: Order Comment: 30 mi ns after intubation Performed By: #### L AB76 ####Vp Medical: ROSALVA LOPEZ ([id number])[facility])[address] [place] [address] Base excess Calc (Bld) [Moles/Vol] 0.0 mmol/L Normal -3.0-3.0 [facility] Comment on above: Performed By: #### L AB76 ####Vp Medical: ROSALVA LOPEZ ([id number])[facility])[address] [place] [address] CO2 [Moles/Vol] 30.9 mmol/L High 23.0-27.0 [facility] Comment on above: Performed By: #### L AB76 ####Vp Medical: ROSALVA LOPEZ ([id number])[facility])[address] [place] [address] HCO3 (Bld) [Moles/Vol] 28.7 mmol/L High 21.0-25.0 [facility] Comment on above: Performed By: #### L AB76 ####Vp Medical: ROSALVA LOPEZ ([id number])[facility])[address] [place] [address] Hemoglobin (Bld) [Mass/Vol] 8.3 g/dL Normal Screen Only [facility] Comment on above: Performed By: #### L AB76 ####Vp Medical: ROSALVA LOPEZ ([id number])[facility])[address] [place] [address] OXYGEN SATURATION (%) IN ARTERIAL BLOOD 94.4 % Low 95.0-100.0 [facility] Comment on above: Performed By: #### L AB76 ####Vp Medical: ROSALVA LOPEZ ([id number])[facility])[address] [place] [address] PCO2 ARTERIAL 74.5 mm Hg High >35.0-<45.0 [facility] Comment on above: Performed By: #### L [id number] ####Vp Medical: ROSALVA LOPEZ ([id number])[facility])[address] [place] [address] PH ARTERIAL 7.203 Low 7.350-7.450 [facility] Comment on above: Performed By: #### L [id number] ####Vp Medical: ROSALVA LOPEZ ([id number])[facility])[address] [place] [address] PO2 ARTERIAL 88.2 mm Hg Normal 80.0-100.0 [facility] Comment on above: Performed By: #### L [id number] ####Vp Medical: ROSALVA LOPEZ ([id number])[facility])[address] [place] [address] SOURCE OF OXYGEN 40% Oxygen Normal [facility] Comment on above: Performed By: #### L [id number] ####Vp Medical: ROSALVA LOPEZ ([id number])[facility])[address] [place] [address] Basic metabolic 1998 panelon 10-03-2023 Anion gap [Moles/Vol] 7 mmol/L 3 - 13 mmol/L [facility] Calcium [Mass/Vol] 9.1 mg/dL 8.4 - 10. 4 mg/dL [facility] Chloride [Moles/Vol] 106 mmol/L 98 - 10 7 mmol/L [facility] CO2 [Moles/Vol] 30 mmol/L 22 - 30 mmol/L [facility] Creatinine [Mass/Vol] 0.48 mg/dL Low 0.52 - 1.04 mg/dL [facility] GFR/1.73 sq M.predicted MDRD (S/P/Bld) [Vol rate/Area] - PINF [facility] Glucose [Mass/Vol] 109 mg/dL High 70 - 100 mg/dL [facility] Interpretation and review of laboratory results Abnormal [facility] Potassium [Moles/Vol] 3.9 mmol/L 3.5 - 5.1 mmol/L [facility] Sodium [Moles/Vol] 142 mmol/L 135 - 145 mmol/L [facility] Urea nitrogen [Mass/Vol] 17 mg/dL 7 - 17 mg/dL [facility] CBC W Auto Differential pane l (Bld)on 10-03-2023 Basophils (Bld) [#/Vol] 0.0 10*3/uL 0.0 - 0.2 10*3/uL [facility] Basophils/100 WBC (Bld) 0.4 % 0.0 - 2.0 % [facility] Eosinophils (Bld) [#/Vol] 0.3 10*3/uL 0.0 - 0.5 10*3/uL [facility] Eosinophils/100 WBC (Bld) 2.4 % 0.0 - 6.0 % [facility] Erythrocyte distribution width (RBC) [Ratio] 14.3 % 11.5 - 15.0 % [facility] Hematocrit (Bld) [Volume fraction] 23.7 % Low 35.0 - 47.0 % [facility] Hemoglobin (Bld) [Mass/Vol] 7.3 g/dL Low 11.7 - 16.0 g/dL [facility] Immature granulocytes (Bld) [#/Vol] 0.1 10*3/uL High NINF - 0.1 10*3/uL [facility] Immature granulocytes/100 WBC (Bld) 0.6 % 0.0 - 2.0 % [facility] Interpretation and review of laboratory results Abnormal [facility] Lymphocytes (Bld) [#/Vol] 1.8 10*3/uL 1.0 - 4.3 10*3/uL [facility] Lymphocytes/100 WBC (Bld) 17.0 % 15.0 - 45.0 % [facility] MCH (RBC) [Entitic mass] 28.7 pg 26.0 - 34.0 pg [facility] MCHC (RBC) [Mass/Vol] 30.8 % 30.5 - 36.0 % [facility] MCV (RBC) [Entitic vol] 93.3 fL 77.0 - 99.0 fL [facility] Monocytes (Bld) [#/Vol] 1.1 10*3/uL High 0.0 - 0.9 10*3/uL [facility] Monocytes/100 WBC (Bld) 10.5 % 5.0 - 13.0 % [facility] Neutrophils (Bld) [#/Vol] 7.4 10*3/uL 1.8 - 7.5 10*3/uL [facility] Neutrophils/100 WBC (Bld) 69.1 % 38.0 - 82.0 % [facility] Nucleated RBC/100 WBC (Bld) [Ratio] 0.0 % [facility] Platelet mean volume (Bld) [Entitic vol] 10.3 fL 9.0 - 12.7 fL [facility] Platelets (Bld) [#/Vol] 224 10*3/uL 140 - 440 10*3/uL [facility] RBC (Bld) [#/Vol] 2.54 10*6/uL Low 3.80 - 5.2 0 10*6/uL [facility] WBC (Bld) [#/Vol] 10.7 10*3/uL 3.6 - 10.7 10*3/uL [facility] CBC WITH AUTO DIFFERENTIALon 10-03-2023 Basophils (Bld) [#/Vol] 0.0 10*3/uL Normal 0.0-0.2 [facility] Comment on above: Performed By: #### L [id number] ####Vp Medical: ROSALVA LOPEZ ([id number])[address] Basophils/100 WBC (Bld) 0.4 % Normal 0.0-2.0 [facility] Comment on above: Performed By: #### L [id number] ####Vp Medical: ROSALVA LOPEZ ([id number])[facility])[address] [place] [address] Eosinophils (Bld) [#/Vol] 0.3 10*3/uL Normal 0.0-0.5 [facility] Comment on above: Performed By: #### L [id number] ####Vp Medical: ROSALVA LOPEZ ([id number])[address] Eosinophils/100 WBC (Bld) 2.4 % Normal 0.0-6.0 [facility] Comment on above: Performed By: #### L [id number] ####Vp Medical: ROSALVA LOPEZ ([id number])[address] Erythrocyte distribution width (RBC) [Ratio] 14.3 % Normal 11.5-15.0 [facility] Comment on above: Performed By: #### L [id number] ####Vp Medical: ROSALVA LOPEZ ([id number])[address] Hematocrit (Bld) [Volume fraction] 23.7 % Low 35.0-47.0 [facility] Comment on above: Performed By: #### L [id number] ####Vp Medical: ROSALVA LOPEZ ([id number])[address] Hemoglobin (Bld) [Mass/Vol] 7.3 g/dL Low 11.7-16.0 [facility] Comment on above: Performed By: #### L [id number] ####Vp Medical: ROSALVA LOPEZ ([id number])[address] IMMATURE GRANS % 0.6 % Normal 0.0-2.0 [facility] Comment on above: Performed By: #### L [id number] ####Vp Medical: ROSALVA LOPEZ ([id number])[address] IMMATURE GRANS ABSOLUTE 0.1 10*3/uL High <0.1 [facility] Comment on above: Performed By: #### L [id number] ####Vp Medical: ROSALVA LOPEZ ([id number])[facility])[address] [place] [address] Lymphocytes (Bld) [#/Vol] 1.8 10*3/uL Normal 1.0-4.3 [facility] Comment on above: Performed By: #### L [id number] ####Vp Medical: ROSALVA LOPEZ ([id number])[facility])[address] [place] [address] Lymphocytes/100 WBC (Bld) 17.0 % Normal 15.0-45.0 [facility] Comment on above: Performed By: #### L [id number] ####Vp Medical: ROSALVA LOPEZ ([id number])[facility])[address] [place] [address] MCH (RBC) [Entitic mass] 28.7 pg Normal 26.0-34.0 [facility] Comment on above: Performed By: #### L [id number] ####Vp Medical: ROSALVA LOPEZ ([id number])[facility])[address] [place] [address] MCHC 30.8 % Normal 30.5-36.0 [facility] Comment on above: Performed By: #### L [id number] ####Vp Medical: ROSALVA LOPEZ ([id number])[facility])[address] [place] [address] MCV (RBC) [Entitic vol] 93.3 fL Normal 77.0-99.0 [facility] Comment on above: Performed By: #### L [id number] ####Vp Medical: ROSALVA LOPEZ ([id number])[facility])[address] [place] [address] Monocytes (Bld) [#/Vol] 1.1 10*3/uL High 0.0-0.9 [facility] Comment on above: Performed By: #### L [id number] ####Vp Medical: ROSALVA LOPEZ ([id number])[facility])[address] [place] [address] Monocytes/100 WBC (Bld) 10.5 % Normal 5.0-13.0 [facility] Comment on above: Performed By: #### L [id number] ####Vp Medical: ROSALVA LOPEZ ([id number])[facility])[address] [place] [address] NEUTROPHILS ABSOLUTE 7.4 10*3/uL Normal 1.8-7.5 [facility] Comment on above: Performed By: #### L [id number] ####Vp Medical: ROSALVA LOPEZ ([id number])[facility])[address] [place] [address] Neutrophils/100 WBC (Bld) 69.1 % Normal 38.0-82.0 [facility] Comment on above: Performed By: #### L [id number] ####Vp Medical: ROSALVA LOPEZ ([id number])[facility])[address] [place] [address] NRBC 0.0 /100 WBCs Normal 0.0-2.0 [facility] Comment on above: Performed By: #### L [id number] ####Vp Medical: ROSALVA LOPEZ ([id number])[facility])[address] [place] [address] Platelet mean volume (Bld) [Entitic vol] 10.3 fL Normal 9.0-12.7 [facility] Comment on above: Performed By: #### L [id number] ####Vp Medical: ROSALVA LOPEZ ([id number])[facility])[address] [place] [address] Platelets (Bld) [#/Vol] 224 10*3/uL Normal 140-440 [facility] Comment on above: Performed By: #### L [id number] ####Vp Medical: ROSALVA LOPEZ ([id number])[facility])[address] [place] [address] RBC (Bld) [#/Vol] 2.54 10*6/uL Low 3.80-5.20 [facility] Comment on above: Performed By: #### L [id number] ####Vp Medical: ROSALVA LOPEZ ([id number])[facility])[address] [place] [address] WBC (Bld) [#/Vol] 10.7 10*3/uL Normal 3.6-10.7 [facility] Comment on above: Performed By: #### L [id number] ####Vp Medical: ROSALVA LOPEZ ([id number])[facility])[address] [place] [address] Consulton 10-03-2023 Consult Normal [facility] Laboratory - Chemistry and C hemistry - challengeon 10-03-2023 TSH Qn 1.049 m[IU]/L [facility] Base excess Calc (Bld) [Moles/Vol] 1.0 mmol/L -3.0 - 3.0 mmol/L [facility] CO2 (Bld) [Partial pressure] 57.0 mm[Hg] High - PINF [facility] CO2 [Moles/Vol] 29.5 mmol/L High 23.0 - 27.0 mmol/L [facility] HCO3 (Bld) [Moles/Vol] 27.7 mmol/L High 21.0 - 25.0 mmol/L [facility] Oxygen (Bld) [Partial pressure] 98.9 mm[Hg] [facility] pH (Bld) 7.305 [pH] Low 7.350 - 7.450 [facility] Magnesium [Mass/Vol] 1.9 mg/dL 1.6 - 2 .3 mg/dL [facility] Laboratory - Chemistry and C hemistry - challengeOrdered By: Panchito Swab on 10-03-2023 Base excess Calc (Bld) [Moles/Vol] 0.0 mmol/L -3.0 - 3.0 mmol/L [facility] CO2 (Bld) [Partial pressure] 74.5 mm[Hg] High - PINF [facility] CO2 [Moles/Vol] 30.9 mmol/L High 23.0 - 27.0 mmol/L [facility] HCO3 (Bld) [Moles/Vol] 28.7 mmol/L High 21.0 - 25.0 mmol/L [facility] Oxygen (Bld) [Partial pressure] 88.2 mm[Hg] [facility] pH (Bld) 7.203 [pH] Low 7.350 - 7.450 [facility] Laboratory - Hematology and Cell countson 10-03-2023 Hemoglobin (Bld) [Mass/Vol] 7.8 g/dL Screen Only [facility] Laboratory - Hematology and Cell countsOrdered By: Panchito Swab on 10-03-2023 Hemoglobin (Bld) [Mass/Vol] 8.3 g/dL Screen Only [facility] MAGNESIUMon 10-03-2023 Magnesium [Mass/Vol] 1.9 mg/dL Normal 1.6-2.3 [facility] Comment on above: Performed By: #### L [id number], [id number], LAB15 ####Vp Medical: ROSALVA LOPEZ ([id number])[facility])[address] [place] [address] No Panel Informationon 10-02 Interpretation and review of laboratory results Abnormal [facility] Source Of Oxygen Vent [facility] Interpretation and review of laboratory results Normal [facility] No Panel InformationOrdered By: Yanet Aguilar on 10-03-2023 [facility] Work Phone: No Panel InformationOrdered By: Panchito Swab on 10-03-2023 Interpretation and review of laboratory results Abnormal [facility] Source Of Oxygen 40% Oxygen [facility] PHOSPHORUSon 10-03-2023 Phosphate [Mass/Vol] 3.5 mg/dL Normal 2.5-4.5 [facility] Comment on above: Performed By: #### L [id number], [id number], [id number] ####[facility]: ROSALVA LOPEZ ([id number])[facility] ([facility])[address] [place] [address] [place] PNEUMONIA PCR PANELon 2023 PNEUMONIA PCR PANEL Normal [facility] Comment on above: Performed By: #### L [id number] ####[facility]: ROSALVA LOPEZ ([id number])[facility] ([facility])[address] [place] [address] [place] Phosphate [Moles/Vol]on 09-04 Phosphate [Mass/Vol] 3.5 mg/dL 2.5 - 4 .5 mg/dL [facility] Progress Noteon 10-03-2023 Progress Note Normal [facility] Progress Note Normal [facility] RESPIRATORY CULTURE AND STAI Non 10-03-2023 RESPIRATORY CULTURE AND STAIN Normal [facility] Comment on above: Performed By: #### L [id number] ####[facility]: ROSALVA LOPEZ ([id number])[facility] ([facility])[address] [place] [address] Respiratory pathogens DNA an d RNA panel MERISSA+non-probe (Lower resp)Ordered By: Danilo Tolliver on 10-03-2023 Acinetobacter baumannii complex Not detected Not Detected [facility] Adenovirus Not detected Not Detected [facility] Chlamydia pneumoniae Not detected Not Detected [facility] Enterobacter cloacae complex Not detected Not Detected [facility] Escherichia coli Not detected Not Detected [facility] FLUAV RNA MERISSA+non-probe Ql (Lower resp) Not detected Not Detected [facility] FLUBV RNA MERISSA+non-probe Ql (Lower resp) Not detected Not Detected [facility] Haemophilus influenzae Not detected Not Detecte d [facility] Human Metapneumovirus Not detected Not Detected [facility] Human Rhinovirus/Enterovirus Not detected Not Detected [facility] Interpretation and review of laboratory results Normal [facility] Klebsiella (Enterobacter) aerogenes Not detected Not Detected [facility] Klebsiella oxytoca Not detected Not Detected [facility] Klebsiella pneumoniae Not detected Not Detected [facility] Legionella pneumophila Not detected Not Detecte d [facility] Moraxella catarrhalis Not detected Not Detected [facility] Mycoplasma pneumoniae Not detected Not Detected [facility] Parainfluenza virus Not detected Not Detected [facility] Proteus spp Not detected Not Detected [facility] Pseudomonas aeruginosa Not detected Not Detecte d [facility] RSV RNA MERISSA+probe Ql (Resp) Not detected Not Detected [facility] S. agalactiae Org specific cx Ql (Vag fld) Not detected Not Detected [facility] SARS-CoV-2 (COVID-19) RNA MERISSA+non-probe Ql (Nph) Not detected Not Detected [facility] Serratia marcescens Not detected Not Detected [facility] Staphylococcus aureus Not detected Not Detected [facility] Streptococcus pneumoniae Not detected Not Detected [facility] Streptococcus pyogenes Not detected Not Detecte d [facility] THYROID STIMULATING HORMONEo n 10-03-2023 THYROID STIMULATING HORMONE 1.049 uIU/mL Normal 0.465-4.680 [facility] Comment on above: Performed By: #### L [id number] ####Vp Medical: ROSALVA LOPEZ ([id number])[facility])[address] [place] [address] [place] TSH Qnon 10-03-2023 Interpretation and review of laboratory results Normal [facility] XR ABDOMEN 1 VIEWon 10-03-19 24 XR ABDOMEN 1 VIEW Normal [facility] XR ABDOMEN 1 VIEW Normal [facility] XR Abdomen Single viewon [facility] Radiology Study observation (narrative) [facility] Radiology Study observation (narrative) [facility] XR CHEST 1 VIEWon 10-03-2023 XR CHEST 1 VIEW Normal [facility] XR Chest Single viewon 10-02 [facility] Radiology Study observation (narrative) [facility] BASIC METABOLIC PANELon 09-04 Anion gap [Moles/Vol] 10 mmol/L Normal 3-13 [facility] Comment on above: Performed By: #### L [id number], [id number], LAB15 ####Vp Medical: ROSALVA LOPEZ ([id number])[facility])[address] [place] [address] Calcium [Mass/Vol] 9.3 mg/dL Normal 8.4-10.4 [facility] Comment on above: Performed By: #### L AB113, [id number], LAB15 ####Vp Medical: ROSALVA LOPEZ ([id number])[facility])[address] [place] [address] [place] Chloride [Moles/Vol] 104 mmol/L Normal 98-107 [facility] Comment on above: Performed By: #### L AB113, [id number], LAB15 ####Vp Medical: ROSALVA LOPEZ ([id number])[facility])[address] [place] [address] CO2 [Moles/Vol] 29 mmol/L Normal 22-30 [facility] Comment on above: Performed By: #### L AB113, [id number], LAB15 ####Vp Medical: ROSALVA LOPEZ ([id number])[facility])[address] [place] [address] Creatinine [Mass/Vol] 0.64 mg/dL Normal 0.52-1.04 [facility] Comment on above: Performed By: #### L AB113, [id number], LAB15 ####Vp Medical: ROSALVA LOPEZ ([id number])[facility])[address] [place] [address] GLOMERULAR FILTRATION RATE ML/MIN/1.73 SQ M.PREDICTED >90.0 Normal >60.0 [facility] Comment on above: Result Comment: Calc ulation based on the Chronic Kidney Disease Epidemiology Collaboration (CKD-EPI) equation refit without adjustment for race Performed By: #### L AB113, [id number], LAB15 ####Vp Medical: ROSALVA LOPEZ ([id number])[facility])[address] [place] [address] Glucose [Mass/Vol] 104 mg/dL High 70-100 [facility] Comment on above: Performed By: #### L AB113, [id number], LAB15 ####Vp Medical: ROSALVA LOPEZ ([id number])[facility])[address] [place] [address] Potassium [Moles/Vol] 3.3 mmol/L Low 3.5-5.1 [facility] Comment on above: Performed By: #### L AB113, [id number], LAB15 ####Vp Medical: ROSALVA LOPEZ ([id number])[facility])[address] [place] [address] Sodium [Moles/Vol] 143 mmol/L Normal 135-145 [facility] Comment on above: Performed By: #### L AB113, [id number], LAB15 ####Vp Medical: ROSALVA LOPEZ ([id number])[facility])[address] [place] [address] Urea nitrogen [Mass/Vol] 16 mg/dL Normal 7-17 [facility] Comment on above: Performed By: #### L AB113, [id number], LAB15 ####Vp Medical: ROSALVA LOPEZ ([id number])[facility])[address] [place] [address] BLOOD GAS ARTERIALon 024 Base excess Calc (Bld) [Moles/Vol] 1.1 mmol/L Normal -3.0-3.0 [facility] Comment on above: Performed By: #### L [id number] ####Vp Medical: ROSALVA LOPEZ ([id number])[facility])[address] [place] [address] CO2 [Moles/Vol] 29.7 mmol/L High 23.0-27.0 [facility] Comment on above: Performed By: #### L [id number] ####Vp Medical: ROSALVA LOEPZ ([id number])[facility])[address] [place] [address] HCO3 (Bld) [Moles/Vol] 27.9 mmol/L High 21.0-25.0 [facility] Comment on above: Performed By: #### L [id number] ####Vp Medical: ROSALVA LOPEZ ([id number])[facility])[address] [place] [address] Hemoglobin (Bld) [Mass/Vol] 8.0 g/dL Normal Screen Only [facility] Comment on above: Performed By: #### L [id number] ####Vp Medical: ROSALVA LOPEZ ([id number])[facility])[address] [place] [address] OXYGEN SATURATION (%) IN ARTERIAL BLOOD 96.3 % Normal 95.0-100.0 [facility] Comment on above: Performed By: #### L [id number] ####Vp Medical: ROSALVA LOPEZ ([id number])[facility])[address] [place] [address] PCO2 ARTERIAL 57.5 mm Hg High >35.0-<45.0 [facility] Comment on above: Performed By: #### L [id number] ####Vp Medical: ROSALVA LOPEZ ([id number])[facility])[address] [place] [address] PH ARTERIAL 7.304 Low 7.350-7.450 [facility] Comment on above: Performed By: #### L [id number] ####Vp Medical: ROSALVA LOPEZ ([id number])[facility])[address] [place] [address] PO2 ARTERIAL 92.6 mm Hg Normal 80.0-100.0 [facility] Comment on above: Performed By: #### L [id number] ####Vp Medical: ROSALVA LOPEZ ([id number])[facility])[address] [place] [address] SOURCE OF OXYGEN Bi-PAP Normal [facility] Comment on above: Result Comment: 35% Performed By: #### L [id number] ####Vp Medical: ROSALVA LOPEZ ([id number])[facility])[address] [place] [address] Base excess Calc (Bld) [Moles/Vol] 1.3 mmol/L Normal -3.0-3.0 [facility] Comment on above: Performed By: #### L [id number] ####Vp Medical: ROSALVA LOPEZ ([id number])[facility])[address] [place] [address] CO2 [Moles/Vol] 29.9 mmol/L High 23.0-27.0 [facility] Comment on above: Performed By: #### L [id number] ####Vp Medical: ROSALVA LOPEZ ([id number])[facility])[address] [place] [address] HCO3 (Bld) [Moles/Vol] 28.1 mmol/L High 21.0-25.0 [facility] Comment on above: Performed By: #### L [id number] ####Vp Medical: ROSALVA LOPEZ ([id number])[facility])[address] [place] [address] Hemoglobin (Bld) [Mass/Vol] 8.2 g/dL Normal Screen Only [facility] Comment on above: Performed By: #### L [id number] ####Vp Medical: ROSALVA LOPEZ ([id number])[facility])[address] [place] [address] OXYGEN SATURATION (%) IN ARTERIAL BLOOD 98.8 % Normal 95.0-100.0 [facility] Comment on above: Performed By: #### L [id number] ####Vp Medical: ROSALVA LOPEZ ([id number])[facility])[address] [place] [address] PCO2 ARTERIAL 57.6 mm Hg High >35.0-<45.0 [facility] Comment on above: Performed By: #### L [id number] ####Vp Medical: ROSALVA LOPEZ ([id number])[facility])[address] [place] [address] PH ARTERIAL 7.306 Low 7.350-7.450 [facility] Comment on above: Performed By: #### L [id number] ####Vp Medical: ROSALVA LOPEZ ([id number])[facility])[address] [place] [address] PO2 ARTERIAL 182.0 mm Hg High 80.0-100.0 [facility] Comment on above: Performed By: #### L [id number] ####Vp Medical: ROSALVA LOPEZ ([id number])[facility])[address] [place] [address] SOURCE OF OXYGEN Bi-PAP Normal [facility] Comment on above: Result Comment: 50% Performed By: #### L [id number] ####Vp Medical: ROSALVA LOPEZ ([id number])[facility])[address] [place] [address] Bacteria identified Cx Nom ( Bld)on 10-02-2023 Interpretation and review of laboratory results Normal [facility] Basic metabolic 1998 panelon 10-02-2023 Anion gap [Moles/Vol] 10 mmol/L 3 - 13 mmol/L [facility] Calcium [Mass/Vol] 9.3 mg/dL 8.4 - 10. 4 mg/dL [facility] Chloride [Moles/Vol] 104 mmol/L 98 - 10 7 mmol/L [facility] CO2 [Moles/Vol] 29 mmol/L 22 - 30 mmol/L [facility] Creatinine [Mass/Vol] 0.64 mg/dL 0.52 - 1.04 mg/dL [facility] GFR/1.73 sq M.predicted MDRD (S/P/Bld) [Vol rate/Area] - PINF [facility] Glucose [Mass/Vol] 104 mg/dL High 70 - 100 mg/dL [facility] Interpretation and review of laboratory results Abnormal [facility] Potassium [Moles/Vol] 3.3 mmol/L Low 3.5 - 5.1 mmol/L [facility] Sodium [Moles/Vol] 143 mmol/L 135 - 145 mmol/L [facility] Urea nitrogen [Mass/Vol] 16 mg/dL 7 - 17 mg/dL [facility] CBC W Auto Differential pane l (Bld)on 10-02-2023 Basophils (Bld) [#/Vol] 0.0 10*3/uL 0.0 - 0.2 10*3/uL [facility] Basophils/100 WBC (Bld) 0.2 % 0.0 - 2.0 % [facility] Eosinophils (Bld) [#/Vol] 0.1 10*3/uL 0.0 - 0.5 10*3/uL [facility] Eosinophils/100 WBC (Bld) 0.9 % 0.0 - 6.0 % [facility] Erythrocyte distribution width (RBC) [Ratio] 14.5 % 11.5 - 15.0 % [facility] Hematocrit (Bld) [Volume fraction] 25.4 % Low 35.0 - 47.0 % [facility] Hemoglobin (Bld) [Mass/Vol] 7.7 g/dL Low 11.7 - 16.0 g/dL [facility] Immature granulocytes (Bld) [#/Vol] 0.1 10*3/uL High NINF - 0.1 10*3/uL [facility] Immature granulocytes/100 WBC (Bld) 0.5 % 0.0 - 2.0 % [facility] Interpretation and review of laboratory results Abnormal [facility] Lymphocytes (Bld) [#/Vol] 1.5 10*3/uL 1.0 - 4.3 10*3/uL [facility] Lymphocytes/100 WBC (Bld) 13.7 % Low 15.0 - 45.0 % [facility] MCH (RBC) [Entitic mass] 28.2 pg 26.0 - 34.0 pg [facility] MCHC (RBC) [Mass/Vol] 30.3 % Low 30.5 - 36.0 % [facility] MCV (RBC) [Entitic vol] 93.0 fL 77.0 - 99.0 fL [facility] Monocytes (Bld) [#/Vol] 1.3 10*3/uL High 0.0 - 0.9 10*3/uL [facility] Monocytes/100 WBC (Bld) 12.0 % 5.0 - 13.0 % [facility] Neutrophils (Bld) [#/Vol] 7.9 10*3/uL High 1.8 - 7.5 10*3/uL [facility] Neutrophils/100 WBC (Bld) 72.7 % 38.0 - 82.0 % [facility] Nucleated RBC/100 WBC (Bld) [Ratio] 0.0 % [facility] Platelet mean volume (Bld) [Entitic vol] 10.9 fL 9.0 - 12.7 fL [facility] Platelets (Bld) [#/Vol] 178 10*3/uL 140 - 440 10*3/uL [facility] RBC (Bld) [#/Vol] 2.73 10*6/uL Low 3.80 - 5.2 0 10*6/uL [facility] WBC (Bld) [#/Vol] 10.8 10*3/uL High 3.6 - 10.7 10*3/uL [facility] CBC WITH AUTO DIFFERENTIALon 10-02-2023 Basophils (Bld) [#/Vol] 0.0 10*3/uL Normal 0.0-0.2 [facility] Comment on above: Performed By: #### L [id number] ####Vp Medical: ROSALVA LOPEZ ([id number])[facility])[address] [place] [address] Basophils/100 WBC (Bld) 0.2 % Normal 0.0-2.0 [facility] Comment on above: Performed By: #### L [id number] ####Vp Medical: ROSALVA LOPEZ ([id number])[facility])[address] [place] [address] Eosinophils (Bld) [#/Vol] 0.1 10*3/uL Normal 0.0-0.5 [facility] Comment on above: Performed By: #### L [id number] ####Vp Medical: ROSALVA LOPEZ ([id number])[facility])[address] [place] [address] Eosinophils/100 WBC (Bld) 0.9 % Normal 0.0-6.0 [facility] Comment on above: Performed By: #### L [id number] ####Vp Medical: ROSALVA LOPEZ ([id number])[facility])[address] [place] [address] Erythrocyte distribution width (RBC) [Ratio] 14.5 % Normal 11.5-15.0 [facility] Comment on above: Performed By: #### L [id number] ####Vp Medical: ROSALVA LOPEZ ([id number])[facility])[address] [place] [address] Hematocrit (Bld) [Volume fraction] 25.4 % Low 35.0-47.0 [facility] Comment on above: Performed By: #### L [id number] ####Vp Medical: ROSALVA LOPEZ ([id number])[facility])[address] [place] [address] Hemoglobin (Bld) [Mass/Vol] 7.7 g/dL Low 11.7-16.0 [facility] Comment on above: Performed By: #### L [id number] ####Vp Medical: ROSALVA LOPEZ ([id number])[facility])[address] [place] [address] IMMATURE GRANS % 0.5 % Normal 0.0-2.0 [facility] Comment on above: Performed By: #### L [id number] ####Vp Medical: ROSALVA LOPEZ ([id number])[facility])[address] [place] [address] IMMATURE GRANS ABSOLUTE 0.1 10*3/uL High <0.1 [facility] Comment on above: Performed By: #### L [id number] ####Vp Medical: ROSALVA LOPEZ ([id number])[facility])[address] [place] [address] Lymphocytes (Bld) [#/Vol] 1.5 10*3/uL Normal 1.0-4.3 [facility] Comment on above: Performed By: #### L [id number] ####Vp Medical: ROSALVA LOPEZ ([id number])[address] Lymphocytes/100 WBC (Bld) 13.7 % Low 15.0-45.0 [facility] Comment on above: Performed By: #### L [id number] ####Vp Medical: ROSALVA LOPEZ ([id number])[facility])[address] [place] [address] MCH (RBC) [Entitic mass] 28.2 pg Normal 26.0-34.0 [facility] Comment on above: Performed By: #### L [id number] ####Vp Medical: ROSALVA LOPEZ ([id number])[facility])[address] [place] [address] MCHC 30.3 % Low 30.5-36.0 [facility] Comment on above: Performed By: #### L [id number] ####Vp Medical: ROSALVA LOPEZ ([id number])[facility])[address] [place] [address] MCV (RBC) [Entitic vol] 93.0 fL Normal 77.0-99.0 [facility] Comment on above: Performed By: #### L [id number] ####Vp Medical: ROSALVA LOPEZ ([id number])[facility])[address] [place] [address] Monocytes (Bld) [#/Vol] 1.3 10*3/uL High 0.0-0.9 [facility] Comment on above: Performed By: #### L [id number] ####Vp Medical: ROSALVA LOPEZ ([id number])[facility])[address] [place] [address] Monocytes/100 WBC (Bld) 12.0 % Normal 5.0-13.0 [facility] Comment on above: Performed By: #### L [id number] ####Vp Medical: ROSALVA LOPEZ ([id number])[facility])[address] [place] [address] NEUTROPHILS ABSOLUTE 7.9 10*3/uL High 1.8-7.5 [facility] Comment on above: Performed By: #### L [id number] ####Vp Medical: ROSALVA LOPEZ ([id number])[facility])[address] [place] [address] Neutrophils/100 WBC (Bld) 72.7 % Normal 38.0-82.0 [facility] Comment on above: Performed By: #### L [id number] ####Vp Medical: ROSALVA LOPEZ ([id number])[facility])[address] [place] [address] NRBC 0.0 /100 WBCs Normal 0.0-2.0 [facility] Comment on above: Performed By: #### L [id number] ####Vp Medical: ROSALVA LOPEZ ([id number])[facility])[address] [place] [address] Platelet mean volume (Bld) [Entitic vol] 10.9 fL Normal 9.0-12.7 [facility] Comment on above: Performed By: #### L [id number] ####Vp Medical: ROSALVA LOPEZ ([id number])[facility])[address] [place] [address] Platelets (Bld) [#/Vol] 178 10*3/uL Normal 140-440 [facility] Comment on above: Performed By: #### L [id number] ####Vp Medical: ROSALVA LOPEZ ([id number])[facility])[address] [place] [address] RBC (Bld) [#/Vol] 2.73 10*6/uL Low 3.80-5.20 [facility] Comment on above: Performed By: #### L [id number] ####Vp Medical: ROSALVA LOPEZ ([id number])[facility])[address] [place] [address] WBC (Bld) [#/Vol] 10.8 10*3/uL High 3.6-10.7 [facility] Comment on above: Performed By: #### L [id number] ####Vp Medical: ROSALVA LOPEZ ([id number])[facility])[address] [place] [address] IDNon 10-02-2023 IDN Normal [facility] Laboratory - Chemistry and C hemistry - challengeon 10-02-2023 Base excess Calc (Bld) [Moles/Vol] 1.1 mmol/L -3.0 - 3.0 mmol/L [facility] CO2 (Bld) [Partial pressure] 57.5 mm[Hg] High - PINF [facility] CO2 [Moles/Vol] 29.7 mmol/L High 23.0 - 27.0 mmol/L [facility] HCO3 (Bld) [Moles/Vol] 27.9 mmol/L High 21.0 - 25.0 mmol/L [facility] Oxygen (Bld) [Partial pressure] 92.6 mm[Hg] [facility] pH (Bld) 7.304 [pH] Low 7.350 - 7.450 [facility] Procalcitonin [Mass/Vol] 0.09 ng/mL 0.00 - 0.09 ng/mL [facility] Magnesium [Mass/Vol] 2.0 mg/dL 1.6 - 2 .3 mg/dL [facility] Laboratory - Chemistry and C hemistry - challengeOrdered By: Lu Pederson on 10-02-2023 Base excess Calc (Bld) [Moles/Vol] 1.3 mmol/L -3.0 - 3.0 mmol/L [facility] CO2 (Bld) [Partial pressure] 57.6 mm[Hg] High - PINF [facility] CO2 [Moles/Vol] 29.9 mmol/L High 23.0 - 27.0 mmol/L [facility] HCO3 (Bld) [Moles/Vol] 28.1 mmol/L High 21.0 - 25.0 mmol/L [facility] Oxygen (Bld) [Partial pressure] 182.0 mm[Hg] High [facility] pH (Bld) 7.306 [pH] Low 7.350 - 7.450 [facility] Laboratory - Hematology and Cell countson 10-02-2023 Hemoglobin (Bld) [Mass/Vol] 8.0 g/dL Screen Only [facility] Laboratory - Hematology and Cell countsOrdered By: Lu Pederson on 10-02-2023 Hemoglobin (Bld) [Mass/Vol] 8.2 g/dL Screen Only [facility] Laboratory - Microbiology an d Antimicrobial susceptibilityon 10-02-2023 Bacteria identified Cx Nom (Bld) No growth at 5 days [facility] MAGNESIUMon 10-02-2023 Magnesium [Mass/Vol] 2.0 mg/dL Normal 1.6-2.3 [facility] Comment on above: Performed By: #### L [id number], [id number], LAB15 ####Vp Medical: ROSALVA LOPEZ ([id number])[address] No Panel Informationon 10-01 Interpretation and review of laboratory results Abnormal [facility] Source Of Oxygen Bi-PAP [facility] Interpretation and review of laboratory results Normal [facility] No Panel InformationOrdered By: Lu Pederson on 10-02-2023 Interpretation and review of laboratory results Abnormal [facility] Source Of Oxygen Bi-PAP [facility] PHOSPHORUSon 10-02-2023 Phosphate [Mass/Vol] 3.4 mg/dL Normal 2.5-4.5 [facility] Comment on above: Performed By: #### L [id number], [id number], LAB15 ####Vp Medical: ROSALVA LOPEZ ([id number])[facility])[address] [place] [address] [place] PROCALCITONIN TESTon 024 PROCALCITONIN 0.09 ng/mL Normal 0.00-0.09 [facility] Comment on above: Result Comment: ORDE R COMMENTS:PCT <0.50 = Low risk of severe sepsis and/or septic shock.PCT >2.00 = High risk of severe sepsis and/or septic shock. Performed By: #### L [id number] ####[facility]: ROSALVA LOPEZ ([id number])[address] Phosphate [Moles/Vol]on 09-04 Phosphate [Mass/Vol] 3.4 mg/dL 2.5 - 4 .5 mg/dL [facility] Procalcitonin [Mass/Vol]on 0 10-02-2023 Interpretation and review of laboratory results Normal [facility] Progress Noteon 10-02-2023 Progress Note Normal [facility] Progress Note Normal [facility] Progress Note Normal [facility] Progress Note Normal [facility] Progress Note Normal [facility] XR ABDOMEN 1 VIEWon 10-02-19 24 XR ABDOMEN 1 VIEW Normal [facility] XR Abdomen Single viewon [facility] Radiology Study observation (narrative) [facility] XR Abdomen Single viewOrdere d By: Pablo Starks on 10-02-2023 [facility] Work Phone: XR CHEST 1 VIEWon 10-02-2023 XR CHEST 1 VIEW Normal [facility] XR Chest Single viewon 10-01 [facility] Radiology Study observation (narrative) [facility] XR Chest Single viewOrdered By: Travis Berumen on 10-02-2023 [facility] [email or web address] Phone: BASIC METABOLIC PANELon 09-03 Anion gap [Moles/Vol] 9 mmol/L Normal 3-13 [facility] Comment on above: Performed By: #### L AB113, LCV160, LAB15, LAB20 ####[facility]: ROSALVA LOPEZ ([id number])[facility] [facility])[address] [place] [address] Calcium [Mass/Vol] 9.2 mg/dL Normal 8.4-10.4 [facility] Comment on above: Performed By: #### L AB113, [id number], LAB15, LAB20 ####[facility]p Medical: ROSALVA LOPEZ ([id number])[facility] ([facility])[address] [place] [address] Chloride [Moles/Vol] 105 mmol/L Normal 98-107 [facility] Comment on above: Performed By: #### L AB113, [id number], LAB15, LAB20 ####Vp Medical: ROSALVA LOPEZ ([id number])[facility] ([facility])[address] [place] [address] CO2 [Moles/Vol] 30 mmol/L Normal 22-30 [facility] Comment on above: Performed By: #### L AB113, [id number], LAB15, LAB20 ####Vp Medical: ROSALVA LOPEZ ([id number])[facility])[address] [place] [address] Creatinine [Mass/Vol] 0.51 mg/dL Low 0.52-1.04 [facility] Comment on above: Performed By: #### L AB113, [id number], LAB15, LAB20 ####Vp Medical: ROSALVA LOPEZ ([id number])[facility])[address] [place] [address] GLOMERULAR FILTRATION RATE ML/MIN/1.73 SQ M.PREDICTED >90.0 Normal >60.0 [facility] Comment on above: Result Comment: Calc ulation based on the Chronic Kidney Disease Epidemiology Collaboration (CKD-EPI) equation refit without adjustment for race Performed By: #### L AB113, [id number], LAB15, LAB20 ####Vp Medical: ROSALVA LOPEZ ([id number])[facility])[address] [place] [address] [place] Glucose [Mass/Vol] 149 mg/dL High 70-100 [facility] Comment on above: Performed By: #### L AB113, [id number], LAB15, LAB20 ####Vp Medical: ROSALVA LOPEZ ([id number])[facility] ([facility])[address] [place] [address] Potassium [Moles/Vol] 3.5 mmol/L Normal 3.5-5.1 [facility] Comment on above: Performed By: #### L AB113, [id number], LAB15, LAB20 ####Vp Medical: ROSALVA LOPEZ ([id number])[facility] ([facility])[address] [place] [address] Sodium [Moles/Vol] 143 mmol/L Normal 135-145 [facility] Comment on above: Performed By: #### L AB113, [id number], LAB15, LAB20 ####Vp Medical: ROSALVA LOPEZ ([id number])[facility])[address] [place] [address] Urea nitrogen [Mass/Vol] 14 mg/dL Normal 7-17 [facility] Comment on above: Performed By: #### L AB113, [id number], LAB15, LAB20 ####Vp Medical: ROSALVA LOPEZ ([id number])[facility])[address] [place] [address] Basic metabolic 1998 panelon 10-01-2023 Anion gap [Moles/Vol] 9 mmol/L 3 - 13 mmol/L [facility] Calcium [Mass/Vol] 9.2 mg/dL 8.4 - 10. 4 mg/dL [facility] Chloride [Moles/Vol] 105 mmol/L 98 - 10 7 mmol/L [facility] CO2 [Moles/Vol] 30 mmol/L 22 - 30 mmol/L [facility] Creatinine [Mass/Vol] 0.51 mg/dL Low 0.52 - 1.04 mg/dL [facility] GFR/1.73 sq M.predicted MDRD (S/P/Bld) [Vol rate/Area] - PINF [facility] Glucose [Mass/Vol] 149 mg/dL High 70 - 100 mg/dL [facility] Interpretation and review of laboratory results Abnormal [facility] Potassium [Moles/Vol] 3.5 mmol/L 3.5 - 5.1 mmol/L [facility] Sodium [Moles/Vol] 143 mmol/L 135 - 145 mmol/L [facility] Urea nitrogen [Mass/Vol] 14 mg/dL 7 - 17 mg/dL [facility] CARECOORDon 10-01-2023 CARECOORD Normal [facility] CBC W Auto Differential pane l (Bld)on 10-01-2023 Basophils (Bld) [#/Vol] 0.0 10*3/uL 0.0 - 0.2 10*3/uL [facility] Basophils/100 WBC (Bld) 0.1 % 0.0 - 2.0 % [facility] Eosinophils (Bld) [#/Vol] 0.0 10*3/uL 0.0 - 0.5 10*3/uL [facility] Eosinophils/100 WBC (Bld) 0.0 % 0.0 - 6.0 % [facility] Erythrocyte distribution width (RBC) [Ratio] 14.6 % 11.5 - 15.0 % [facility] Hematocrit (Bld) [Volume fraction] 24.7 % Low 35.0 - 47.0 % [facility] Hemoglobin (Bld) [Mass/Vol] 7.6 g/dL Low 11.7 - 16.0 g/dL [facility] Immature granulocytes (Bld) [#/Vol] 0.0 10*3/uL NINF - 0.1 10*3/uL [facility] Immature granulocytes/100 WBC (Bld) 0.5 % 0.0 - 2.0 % [facility] Interpretation and review of laboratory results Abnormal [facility] Lymphocytes (Bld) [#/Vol] 0.5 10*3/uL Low 1.0 - 4.3 10*3/uL [facility] Lymphocytes/100 WBC (Bld) 6.7 % Low 15.0 - 45.0 % [facility] MCH (RBC) [Entitic mass] 28.4 pg 26.0 - 34.0 pg [facility] MCHC (RBC) [Mass/Vol] 30.8 % 30.5 - 36.0 % [facility] MCV (RBC) [Entitic vol] 92.2 fL 77.0 - 99.0 fL [facility] Monocytes (Bld) [#/Vol] 0.5 10*3/uL 0.0 - 0.9 10*3/uL [facility] Monocytes/100 WBC (Bld) 6.1 % 5.0 - 13.0 % [facility] Neutrophils (Bld) [#/Vol] 6.4 10*3/uL 1.8 - 7.5 10*3/uL [facility] Neutrophils/100 WBC (Bld) 86.6 % High 38.0 - 82.0 % [facility] Nucleated RBC/100 WBC (Bld) [Ratio] 0.0 % [facility] [employer] Platelet mean volume (Bld) [Entitic vol] 11.1 fL 9.0 - 12.7 fL [facility] Platelets (Bld) [#/Vol] 153 10*3/uL 140 - 440 10*3/uL [facility] RBC (Bld) [#/Vol] 2.68 10*6/uL Low 3.80 - 5.2 0 10*6/uL [facility] WBC (Bld) [#/Vol] 7.4 10*3/uL 3.6 - 10.7 10*3/uL [facility] CBC WITH AUTO DIFFERENTIALon 10-01-2023 Basophils (Bld) [#/Vol] 0.0 10*3/uL Normal 0.0-0.2 [facility] Comment on above: Performed By: #### L [id number] ####[facility] Medical: ROSALVA LOPEZ ([id number])[address] Basophils/100 WBC (Bld) 0.1 % Normal 0.0-2.0 [facility] Comment on above: Performed By: #### L [id number] ####Vp Medical: ROSALVA LOPEZ ([id number])[facility])[address] [place] [address] Eosinophils (Bld) [#/Vol] 0.0 10*3/uL Normal 0.0-0.5 [facility] Comment on above: Performed By: #### L [id number] ####Vp Medical: ROSALVA LOPEZ ([id number])[facility])[address] [place] [address] Eosinophils/100 WBC (Bld) 0.0 % Normal 0.0-6.0 [facility] Comment on above: Performed By: #### L [id number] ####Vp Medical: ROSALVA LOPEZ ([id number])[facility])[address] [place] [address] Erythrocyte distribution width (RBC) [Ratio] 14.6 % Normal 11.5-15.0 [facility] Comment on above: Performed By: #### L [id number] ####Vp Medical: ROSALVA LOPEZ ([id number])[address] Hematocrit (Bld) [Volume fraction] 24.7 % Low 35.0-47.0 [facility] Comment on above: Performed By: #### L [id number] ####Vp Medical: ROSALVA LOPEZ ([id number])[address] Hemoglobin (Bld) [Mass/Vol] 7.6 g/dL Low 11.7-16.0 [facility] Comment on above: Performed By: #### L [id number] ####Vp Medical: ROSALVA LOPEZ ([id number])[facility])[address] [place] [address] IMMATURE GRANS % 0.5 % Normal 0.0-2.0 [facility] Comment on above: Performed By: #### L [id number] ####V[facility] Medical: ROSALVA LOPEZ ([id number])[address] IMMATURE GRANS ABSOLUTE 0.0 10*3/uL Normal <0.1 [facility] Comment on above: Performed By: #### L [id number] ####Vp Medical: ROSALVA LOPEZ ([id number])[address] Lymphocytes (Bld) [#/Vol] 0.5 10*3/uL Low 1.0-4.3 [facility] Comment on above: Performed By: #### L [id number] ####Vp Medical: ROSALVA LOPEZ ([id number])[facility])[address] [place] [address] Lymphocytes/100 WBC (Bld) 6.7 % Low 15.0-45.0 [facility] Comment on above: Performed By: #### L [id number] ####Vp Medical: ROSALVA LOPEZ ([id number])[facility])[address] [place] [address] MCH (RBC) [Entitic mass] 28.4 pg Normal 26.0-34.0 [facility] Comment on above: Performed By: #### L [id number] ####Vp Medical: ROSALVA LOPEZ ([id number])[facility])[address] [place] [address] MCHC 30.8 % Normal 30.5-36.0 [facility] Comment on above: Performed By: #### L [id number] ####Vp Medical: ROSALVA LOPEZ ([id number])[facility])[address] [place] [address] MCV (RBC) [Entitic vol] 92.2 fL Normal 77.0-99.0 [facility] Comment on above: Performed By: #### L [id number] ####Vp Medical: ROSALVA LOPEZ ([id number])[facility])[address] [place] [address] Monocytes (Bld) [#/Vol] 0.5 10*3/uL Normal 0.0-0.9 [facility] Comment on above: Performed By: #### L [id number] ####Vp Medical: ROSALVA LOPEZ ([id number])[facility])[address] [place] [address] Monocytes/100 WBC (Bld) 6.1 % Normal 5.0-13.0 [facility] Comment on above: Performed By: #### L [id number] ####Vp Medical: ROSALVA LOPEZ ([id number])[facility])[address] [place] [address] NEUTROPHILS ABSOLUTE 6.4 10*3/uL Normal 1.8-7.5 [facility] Comment on above: Performed By: #### L [id number] ####Vp Medical: ROSALVA LOPEZ ([id number])[facility])[address] [place] [address] Neutrophils/100 WBC (Bld) 86.6 % High 38.0-82.0 [facility] Comment on above: Performed By: #### L [id number] ####Vp Medical: ROSALVA LOPEZ ([id number])[facility] ([facility])[address] [place] [address] NRBC 0.0 /100 WBCs Normal 0.0-2.0 [facility] Comment on above: Performed By: #### L [id number] ####Vp Medical: ROSALVA LOPEZ ([id number])[facility])[address] [place] [address] Platelet mean volume (Bld) [Entitic vol] 11.1 fL Normal 9.0-12.7 [facility] Comment on above: Performed By: #### L [id number] ####Vp Medical: ROSALVA LOPEZ ([id number])[facility])[address] [place] [address] Platelets (Bld) [#/Vol] 153 10*3/uL Normal 140-440 [facility] Comment on above: Performed By: #### L [id number] ####Vp Medical: ROSALVA LOPEZ ([id number])[facility])[address] [place] [address] RBC (Bld) [#/Vol] 2.68 10*6/uL Low 3.80-5.20 [facility] Comment on above: Performed By: #### L [id number] ####Vp Medical: ROSALVA LOPEZ ([id number])[facility])[address] [place] [address] WBC (Bld) [#/Vol] 7.4 10*3/uL Normal 3.6-10.7 [facility] Comment on above: Performed By: #### L [id number] ####Vp Medical: ROSALVA LOPEZ ([id number])[facility])[address] [place] [address] CT ABDOMEN PELVIS WO IV CONT RASTon 10-01-2023 CT ABDOMEN PELVIS WO IV CONTRAST Normal [facility] CT Abdomen WO contraston [facility] Radiology Study observation (narrative) [facility] CT Abdomen WO contrastOrdere d By: Pushpa Sapp on 10-01-2023 [facility] Work Phone: Consulton 10-01-2023 Consult Normal [facility] HEPATIC FUNCTION PANELon Albumin [Mass/Vol] 4.5 g/dL Normal 3.5-5.0 [facility] Comment on above: Performed By: #### L AB113, [id number], LAB15, LAB20 ####Vp Medical: ROSALVA LOPEZ ([id number])[facility])[address] [place] [address] ALP [Catalytic activity/Vol] 78 U/L Normal 38-126 [facility] Comment on above: Performed By: #### L AB113, [id number], LAB15, LAB20 ####Vp Medical: ROSALVA LOPEZ ([id number])[facility])[address] [place] [address] ALT [Catalytic activity/Vol] 19 U/L Normal 0-34 [facility] Comment on above: Performed By: #### L AB113, [id number], LAB15, LAB20 ####Vp Medical: ROSALVA LOPEZ ([id number])[facility])[address] [place] [address] AST [Catalytic activity/Vol] 31 U/L Normal 15-46 [facility] Comment on above: Performed By: #### L AB113, [id number], LAB15, LAB20 ####Vp Medical: ROSALVA LOPEZ ([id number])[facility])[address] [place] [address] Bilirubin [Mass/Vol] 0.3 mg/dL Normal 0.2-1.3 [facility] Comment on above: Performed By: #### L AB113, [id number], LAB15, LAB20 ####Vp Medical: ROSALVA LOPEZ ([id number])[facility])[address] [place] [address] Bilirubin.indirect [Mass/Vol] 0.0 mg/dL Normal 0.0-0.3 [facility] Comment on above: Performed By: #### L AB113, [id number], LAB15, LAB20 ####Vp Medical: ROSALVA LOPEZ ([id number])[facility])[address] [place] [address] Protein [Mass/Vol] 7.0 g/dL Normal 6.3-8.2 [facility] Comment on above: Performed By: #### L AB113, [id number], LAB15, LAB20 ####Vp Medical: ROSALVA LOPEZ ([id number])[facility])[address] [place] [address] Hepatic function 2000 panelo n 10-01-2023 Albumin [Mass/Vol] 4.5 g/dL 3.5 - 5.0 g/dL [facility] ALP [Catalytic activity/Vol] 78 U/L 38 - 126 U/L [facility] ALT [Catalytic activity/Vol] 19 U/L 0 - 34 U/L [facility] AST [Catalytic activity/Vol] 31 U/L 15 - 46 U/L [facility] Bilirubin [Mass/Vol] 0.3 mg/dL 0.2 - 1 .3 mg/dL [facility] Bilirubin.conjugated [Mass/Vol] 0.0 mg/dL 0.0 - 0.3 mg/dL [facility] Protein [Mass/Vol] 7.0 g/dL 6.3 - 8.2 g/dL [facility] IDNon 10-01-2023 IDN Normal [facility] Laboratory - Chemistry and C hemistry - challengeon 10-01-2023 Magnesium [Mass/Vol] 1.9 mg/dL 1.6 - 2 .3 mg/dL [facility] MAGNESIUMon 10-01-2023 Magnesium [Mass/Vol] 1.9 mg/dL Normal 1.6-2.3 [facility] Comment on above: Performed By: #### L AB113, [id number], LAB15, LAB20 ####Vp Medical: ROSALVA LOPEZ ([id number])[facility] ([facility])[address] [place] [address] [place] No Panel Informationon 09-30 Interpretation and review of laboratory results Normal [facility] PHOSPHORUSon 10-01-2023 Phosphate [Mass/Vol] 3.0 mg/dL Normal 2.5-4.5 [facility] Comment on above: Performed By: #### L AB113, [id number], LAB15, LAB20 ####Vp Medical: ROSALVA LOPEZ ([id number])[facility] ([facility])[address] [place] [address] Phosphate [Moles/Vol]on 09-03 Phosphate [Mass/Vol] 3.0 mg/dL 2.5 - 4 .5 mg/dL [facility] Progress Noteon 10-01-2023 Progress Note Normal [facility] Progress Note Normal [facility] Progress Note 10/01/23 1340 Patient Parameters Ventilator On Yes Spontaneous Breathing Trial Weaning Stop Time 1340 Spontaneous Breathing Trial (SBT) Outcome SBT Passed (ended for CT trip) Normal [facility] Progress Note Normal [facility] Progress Note Normal [facility] Progress Note Normal [facility] Progress Note Normal [facility] Progress Note Normal [facility] Progress Note Normal [facility] XR ABDOMEN 1 VIEWon 10-01-19 XR ABDOMEN 1 VIEW Normal [facility] XR Abdomen Single viewon [facility] Radiology Study observation (narrative) [facility] XR CHEST 1 VIEWon 10-01-2023 XR CHEST 1 VIEW Normal [facility] XR Chest Single viewon 09-30 [facility] Radiology Study observation (narrative) [facility] XR Chest Single viewOrdered By: Dary Hussein on 10-01-2023 [facility] [employer] Work Phone: BASIC METABOLIC PANELon - Anion gap [Moles/Vol] 12 mmol/L Normal 3-13 [facility] Comment on above: Performed By: #### L AB103, [id number], LAB15 ####Vp Medical: ROSALVA LOPEZ ([id number])[facility] [place] [address] Calcium [Mass/Vol] 9.4 mg/dL Normal 8.4-10.4 [facility] Comment on above: Performed By: #### L AB103, [id number], LAB15 ####Vp Medical: ROSALVA LOPEZ ([id number])[facility] [place] [address] [place] Chloride [Moles/Vol] 100 mmol/L Normal 98-107 [facility] Comment on above: Performed By: #### L AB103, [id number], LAB15 ####Vp Medical: ROSALVA LOPEZ ([id number])[facility])[address] [place] [address] CO2 [Moles/Vol] 30 mmol/L Normal 22-30 [facility] Comment on above: Performed By: #### L AB103, [id number], LAB15 ####Vp Medical: ROSALVA LOPEZ ([id number])[facility])[address] [place] [address] Creatinine [Mass/Vol] 0.55 mg/dL Normal 0.52-1.04 [facility] Comment on above: Performed By: #### L AB103, [id number], LAB15 ####Vp Medical: ROSALVA LOPEZ ([id number])[facility])[address] [place] [address] GLOMERULAR FILTRATION RATE ML/MIN/1.73 SQ M.PREDICTED >90.0 Normal >60.0 [facility] Comment on above: Result Comment: Calc ulation based on the Chronic Kidney Disease Epidemiology Collaboration (CKD-EPI) equation refit without adjustment for race Performed By: #### L AB103, [id number], LAB15 ####Vp Medical: ROSALVA LOPEZ ([id number])[facility])[address] [place] [address] Glucose [Mass/Vol] 169 mg/dL High 70-100 [facility] Comment on above: Performed By: #### L AB103, [id number], LAB15 ####Vp Medical: ROSALVA LOPEZ ([id number])[facility])[address] [place] [address] Potassium [Moles/Vol] 3.1 mmol/L Low 3.5-5.1 [facility] Comment on above: Performed By: #### Elza AB103, [id number], LAB15 ####Vp Medical: ROSALVA LOPEZ ([id number])[facility])[address] [place] [address] Sodium [Moles/Vol] 142 mmol/L Normal 135-145 [facility] Comment on above: Performed By: #### L AB103, [id number], LAB15 ####Vp Medical: ROSALVA LOPEZ ([id number])[facility])[address] [place] [address] Urea nitrogen [Mass/Vol] 13 mg/dL Normal 7-17 [facility] Comment on above: Performed By: #### L AB103, [id number], LAB15 ####Vp Medical: ROSALVA LOPEZ ([id number])[facility])[address] [place] [address] BLOOD GAS, VENOUSon 09-30-19 24 Base excess Calc (BldV) [Moles/Vol] 7.0 mmol/L High -3.0-3.0 [facility] Comment on above: Performed By: #### L AB79 ####Vp Medical: ROSALVA LOPEZ ([id number])[facility])[address] [place] [address] [place] CO2 [Moles/Vol] 32.8 mmol/L High 24.0-28.0 [facility] Comment on above: Performed By: #### L AB79 ####Vp Medical: ROSALVA LOPEZ ([id number])[facility])[address] [place] [address] HCO3 (Bld) [Moles/Vol] 31.4 mmol/L High 23.0-27.0 [facility] Comment on above: Performed By: #### L AB79 ####Vp Medical: ROSALVA LOPEZ ([id number])[facility])[address] [place] [address] Hemoglobin (Bld) [Mass/Vol] 8.7 g/dL Normal Screen Only [facility] Comment on above: Performed By: #### L AB79 ####Vp Medical: ROSALVA LOPEZ ([id number])[facility])[address] [place] [address] OXYGEN (MM HG) IN VENOUS BLOOD 38.7 mm Hg Normal 30.0-50.0 [facility] Comment on above: Performed By: #### L AB79 ####Vp Medical: ROSALVA LOPEZ ([id number])[facility])[address] [place] [address] OXYGEN SATURATION (%) IN VENOUS BLOOD 74.7 % Normal 60.0-80.0 [facility] Comment on above: Performed By: #### L AB79 ####Vp Medical: ROSALVA LOPEZ ([id number])[facility])[address] [place] [address] [place] PCO2, GÉNESIS 44.8 mm Hg Normal 40.0-55.0 [facility] Comment on above: Performed By: #### L AB79 ####Vp Medical: ROSALVA LOPEZ ([id number])[facility])[address] [place] [address] [place] PH VENOUS 7.464 High 7.330-7.430 [facility] Comment on above: Performed By: #### L AB79 ####Vp Medical: ROSALVA LOPEZ ([id number])[facility] ([facility])[address] SOURCE OF OXYGEN Vent Normal [facility] Comment on above: Performed By: #### L AB79 ####Vp Medical: ROSALVA LOPEZ ([id number])[facility] ([facility])[address] Basic metabolic 1998 panelon 09-30-2023 Anion gap [Moles/Vol] 12 mmol/L 3 - 13 mmol/L [facility] Calcium [Mass/Vol] 9.4 mg/dL 8.4 - 10. 4 mg/dL [facility] Chloride [Moles/Vol] 100 mmol/L 98 - 10 7 mmol/L [facility] CO2 [Moles/Vol] 30 mmol/L 22 - 30 mmol/L [facility] Creatinine [Mass/Vol] 0.55 mg/dL 0.52 - 1.04 mg/dL [facility] GFR/1.73 sq M.predicted MDRD (S/P/Bld) [Vol rate/Area] - PINF [facility] Glucose [Mass/Vol] 169 mg/dL High 70 - 100 mg/dL [facility] Potassium [Moles/Vol] 3.1 mmol/L Low 3.5 - 5.1 mmol/L [facility] Sodium [Moles/Vol] 142 mmol/L 135 - 145 mmol/L [facility] Urea nitrogen [Mass/Vol] 13 mg/dL 7 - 17 mg/dL [facility] CBC W Auto Differential pane l (Bld)Ordered By: Seth Zavaleta on 09-30-2023 Basophils (Bld) [#/Vol] 0.0 10*3/uL 0.0 - 0.2 10*3/uL [facility] Basophils/100 WBC (Bld) 0.1 % 0.0 - 2.0 % [facility] Eosinophils (Bld) [#/Vol] 0.0 10*3/uL 0.0 - 0.5 10*3/uL [facility] Eosinophils/100 WBC (Bld) 0.2 % 0.0 - 6.0 % [facility] Erythrocyte distribution width (RBC) [Ratio] 13.8 % 11.5 - 15.0 % [facility] Hematocrit (Bld) [Volume fraction] 24.9 % Low 35.0 - 47.0 % [facility] Hemoglobin (Bld) [Mass/Vol] 7.9 g/dL Low 11.7 - 16.0 g/dL [facility] Immature granulocytes (Bld) [#/Vol] 0.1 10*3/uL High NINF - 0.1 10*3/uL [facility] Immature granulocytes/100 WBC (Bld) 0.7 % 0.0 - 2.0 % [facility] Interpretation and review of laboratory results Abnormal [facility] Lymphocytes (Bld) [#/Vol] 0.4 10*3/uL Low 1.0 - 4.3 10*3/uL [facility] Lymphocytes/100 WBC (Bld) 3.7 % Low 15.0 - 45.0 % [facility] MCH (RBC) [Entitic mass] 28.6 pg 26.0 - 34.0 pg [facility] MCHC (RBC) [Mass/Vol] 31.7 % 30.5 - 36.0 % [facility] MCV (RBC) [Entitic vol] 90.2 fL 77.0 - 99.0 fL [facility] Monocytes (Bld) [#/Vol] 0.9 10*3/uL 0.0 - 0.9 10*3/uL [facility] Monocytes/100 WBC (Bld) 8.0 % 5.0 - 13.0 % [facility] Neutrophils (Bld) [#/Vol] 10.0 10*3/uL High 1.8 - 7.5 10*3/uL [facility] Neutrophils/100 WBC (Bld) 87.3 % High 38.0 - 82.0 % [facility] Nucleated RBC/100 WBC (Bld) [Ratio] 0.0 % [facility] [employer] Platelet mean volume (Bld) [Entitic vol] 11.0 fL 9.0 - 12.7 fL [facility] Platelets (Bld) [#/Vol] 146 10*3/uL 140 - 440 10*3/uL [facility] RBC (Bld) [#/Vol] 2.76 10*6/uL Low 3.80 - 5.2 0 10*6/uL [facility] WBC (Bld) [#/Vol] 11.4 10*3/uL High 3.6 - 10.7 10*3/uL [facility] CBC WITH AUTO DIFFERENTIALon 09-30-2023 Basophils (Bld) [#/Vol] 0.0 10*3/uL Normal 0.0-0.2 [facility] Comment on above: Performed By: #### L [id number] ####[employer]: ROSALVA LOPEZ ([id number])[facility] ([facility])[address] [place] [address] Basophils/100 WBC (Bld) 0.1 % Normal 0.0-2.0 [facility] Comment on above: Performed By: #### L [id number] ####[employer]: ROSALVA LOPEZ ([id number])[facility])[address] [place] [address] Eosinophils (Bld) [#/Vol] 0.0 10*3/uL Normal 0.0-0.5 [facility] Comment on above: Performed By: #### L [id number] ####[employer]: ROSALVA LOPEZ ([id number])[facility] ([facility])[address] [place] [address] Eosinophils/100 WBC (Bld) 0.2 % Normal 0.0-6.0 [facility] Comment on above: Performed By: #### L [id number] ####[employer]: ROSALVA LOPEZ ([id number])[facility])[address] [place] [address] Erythrocyte distribution width (RBC) [Ratio] 13.8 % Normal 11.5-15.0 [facility] Comment on above: Performed By: #### L [id number] ####[employer]: ROSALVA LOPEZ ([id number])[facility])[address] [place] [address] Hematocrit (Bld) [Volume fraction] 24.9 % Low 35.0-47.0 [facility] Comment on above: Performed By: #### L [id number] ####[employer]: ROSALVA LOPEZ ([id number])[facility])[address] [place] [address] Hemoglobin (Bld) [Mass/Vol] 7.9 g/dL Low 11.7-16.0 [facility] Comment on above: Performed By: #### L [id number] ####[employer]: ROSALVA LOPEZ ([id number])[facility])[address] [place] [address] IMMATURE GRANS % 0.7 % Normal 0.0-2.0 [facility] Comment on above: Performed By: #### L [id number] ####[employer] Medical: ROSALVA LOPEZ ([id number])[facility])[address] [place] [address] IMMATURE GRANS ABSOLUTE 0.1 10*3/uL High <0.1 [facility] Comment on above: Performed By: #### L [id number] ####Vp Medical: ROSALVA LOPEZ ([id number])[facility])[address] [place] [address] Lymphocytes (Bld) [#/Vol] 0.4 10*3/uL Low 1.0-4.3 [facility] Comment on above: Performed By: #### L [id number] ####Vp Medical: ROSALVA LOPEZ ([id number])[facility])[address] [place] [address] Lymphocytes/100 WBC (Bld) 3.7 % Low 15.0-45.0 [facility] Comment on above: Performed By: #### L [id number] ####Vp Medical: ROSALVA LOPEZ ([id number])[facility])[address] [place] [address] MCH (RBC) [Entitic mass] 28.6 pg Normal 26.0-34.0 [facility] Comment on above: Performed By: #### L [id number] ####Vp Medical: ROSALVA LOPEZ ([id number])[facility])[address] [place] [address] MCHC 31.7 % Normal 30.5-36.0 [facility] Comment on above: Performed By: #### L [id number] ####[employer]p Medical: ROSALVA LOPEZ ([id number])[facility])[address] [place] [address] MCV (RBC) [Entitic vol] 90.2 fL Normal 77.0-99.0 [facility] Comment on above: Performed By: #### L [id number] ####[employer] Medical: ROSALVA LOPEZ ([id number])[facility])[address] [place] [address] Monocytes (Bld) [#/Vol] 0.9 10*3/uL Normal 0.0-0.9 [facility] Comment on above: Performed By: #### L [id number] ####[employer] Medical: ROSALVA LOPEZ ([id number])[facility])[address] [place] [address] Monocytes/100 WBC (Bld) 8.0 % Normal 5.0-13.0 [facility] Comment on above: Performed By: #### L [id number] ####Vp Medical: ROSALVA LOPEZ ([id number])[facility])[address] [place] [address] NEUTROPHILS ABSOLUTE 10.0 10*3/uL High 1.8-7.5 [facility] Comment on above: Performed By: #### L [id number] ####Vp Medical: ROSALVA LOPEZ ([id number])[facility])[address] [place] [address] Neutrophils/100 WBC (Bld) 87.3 % High 38.0-82.0 [facility] Comment on above: Performed By: #### L [id number] ####[employer] Medical: ROSALVA LOPEZ ([id number])[facility])[address] [place] [address] NRBC 0.0 /100 WBCs Normal 0.0-2.0 [facility] Comment on above: Performed By: #### L [id number] ####[employer] Medical: ROSALVA LOPEZ ([id number])[facility])[address] [place] [address] Platelet mean volume (Bld) [Entitic vol] 11.0 fL Normal 9.0-12.7 [facility] Comment on above: Performed By: #### L [id number] ####[employer] Medical: ROSALVA LOPEZ ([id number])[facility])[address] [place] [address] Platelets (Bld) [#/Vol] 146 10*3/uL Normal 140-440 [facility] Comment on above: Performed By: #### L [id number] ####[employer] Medical: ROSALVA LOPEZ ([id number])[facility])[address] [place] [address] RBC (Bld) [#/Vol] 2.76 10*6/uL Low 3.80-5.20 [facility] Comment on above: Performed By: #### L [id number] ####[facility] Medical: ROSALVA LOPEZ ([id number])[facility])[address] [place] [address] WBC (Bld) [#/Vol] 11.4 10*3/uL High 3.6-10.7 [facility] Comment on above: Performed By: #### L [id number] ####Vp Medical: ROSALVA LOPEZ ([id number])[facility])[address] [place] [address] LACTIC ACID WITH REFLEXon Lactate [Moles/Vol] 0.8 mmol/L Normal 0.7-2.0 [facility] Comment on above: Performed By: #### L [id number] ####[employer]: ROSALVA LOPEZ ([id number])[facility])[address] [place] [address] Laboratory - Chemistry and C hemistry - challengeon 09-30-2023 Procalcitonin [Mass/Vol] 0.08 ng/mL 0.00 - 0.09 ng/mL [facility] Procalcitonin [Mass/Vol] 0.08 ng/mL 0.00 - 0.09 ng/mL [facility] Magnesium [Mass/Vol] 2.0 mg/dL 1.6 - 2 .3 mg/dL [facility] Lactate [Moles/Vol] 0.8 mmol/L 0.7 - 2. 0 mmol/L [facility] Laboratory - Chemistry and C hemistry - challengeOrdered By: Eilene Abad on 09-30-2023 Base excess Calc (BldV) [Moles/Vol] 7.0 mmol/L High -3.0 - 3.0 mmol/L [facility] CO2 (BldV) [Partial pressure] 44.8 mm[Hg] [facility] CO2 [Moles/Vol] 32.8 mmol/L High 24.0 - 28.0 mmol/L [facility] HCO3 (Bld) [Moles/Vol] 31.4 mmol/L High 23.0 - 27.0 mmol/L [facility] Oxygen (BldV) [Partial pressure] 38.7 mm[Hg] [facility] pH (BldV) 7.464 [pH] High 7.330 - 7.430 [facility] Laboratory - Hematology and Cell countsOrdered By: Eileen Abad on 09-30-2023 Hemoglobin (Bld) [Mass/Vol] 8.7 g/dL Screen Only [facility] MAGNESIUMon 09-30-2023 Magnesium [Mass/Vol] 2.0 mg/dL Normal 1.6-2.3 [facility] Comment on above: Performed By: #### L [id number], [id number], LAB15 ####[employer] Medical: ROSALVA LOPEZ ([id number])[address] Magnesium [Mass/Vol]on 09-29 Interpretation and review of laboratory results Normal [facility] No Panel InformationOrdered By: Eileen Abad on 09-30-2023 Interpretation and review of laboratory results Abnormal [facility] Source Of Oxygen Vent [facility] No Panel Informationon 09-29 Interpretation and review of laboratory results Abnormal [facility] Interpretation and review of laboratory results Normal [facility] PHOSPHORUSon 09-30-2023 Phosphate [Mass/Vol] 1.5 mg/dL Low 2.5-4.5 [facility] Comment on above: Performed By: #### L [id number], [id number], LAB15 ####[employer] Medical: ROSALVA LOPEZ ([id number])[facility])[address] [place] [address] PROCALCITONIN TESTon 024 PROCALCITONIN 0.08 ng/mL Normal 0.00-0.09 [facility] Comment on above: Result Comment: RAMY Champion COMMENTS:PCT <0.50 = Low risk of severe sepsis and/or septic shock.PCT >2.00 = High risk of severe sepsis and/or septic shock. Performed By: #### L [id number] ####[employer]: ROSALVA LOPEZ ([id number])[address] PROCALCITONIN 0.08 ng/mL Normal 0.00-0.09 [facility] Comment on above: Result Comment: RAMY Champion COMMENTS:PCT <0.50 = Low risk of severe sepsis and/or septic shock.PCT >2.00 = High risk of severe sepsis and/or septic shock. Performed By: #### L [id number] ####[employer]: ROSALVA LOPEZ ([id number])[facility])[address] [place] [address] Phosphate [Moles/Vol]on 09-03 Phosphate [Mass/Vol] 1.5 mg/dL Low 2.5 - 4 .5 mg/dL [facility] Procalcitonin [Mass/Vol]on 0 09-30-2023 Interpretation and review of laboratory results Normal [facility] Interpretation and review of laboratory results Normal [facility] Progress Noteon 09-30-2023 Progress Note Normal [facility] Progress Note Normal [facility] Progress Note Normal [facility] Progress Note Normal [facility] Progress Note Normal [facility] Progress Note Normal [facility] Progress Note Normal [facility] Progress Note 09/30/23 0841 Spontaneous Breathing Trial Weaning Start Time 0841 Weaning Tolerance Poor Weaning Stop Time 0842 Weaning Duration (min) 1 Spontaneous Breathing Trial (SBT) Outcome Respiratory rate less than 8/min - SBT Failure Attempted SBT x2, pt apneic Normal [facility] Progress Note Normal [facility] Vital signsOrdered By: Raymond Abad on 09-30-2023 Oxygen saturation in Venous blood 74.7 % 60.0 - 80.0 % [facility] XR CHEST 1 VIEWon 09-30-2023 XR CHEST 1 VIEW Normal [facility] XR Chest Single viewon 09-29 [facility] Radiology Study observation (narrative) [facility] BASIC METABOLIC PANELon - Anion gap [Moles/Vol] 8 mmol/L Normal 3-13 [facility] Comment on above: Performed By: #### L [id number], [id number], LAB15 ####[employer] Medical: ROSALVA LOPEZ ([id number])[facility])[address] [place] [address] Calcium [Mass/Vol] 8.6 mg/dL Normal 8.4-10.4 [facility] Comment on above: Performed By: #### L AB113, [id number], LAB15 ####[employer] Medical: ROSALVA LOPEZ ([id number])[facility])[address] [place] [address] Chloride [Moles/Vol] 100 mmol/L Normal 98-107 [facility] Comment on above: Performed By: #### L AB113, [id number], LAB15 ####Vp Medical: ROSALVA LOPEZ ([id number])[facility])[address] [place] [address] [place] CO2 [Moles/Vol] 30 mmol/L Normal 22-30 [facility] Comment on above: Performed By: #### L AB113, [id number], LAB15 ####Vp Medical: ROSALVA LOPEZ ([id number])[facility])[address] [place] [address] Creatinine [Mass/Vol] 0.45 mg/dL Low 0.52-1.04 [facility] Comment on above: Performed By: #### L AB113, [id number], LAB15 ####Vp Medical: ROSALVA LOPEZ ([id number])[facility])[address] [place] [address] GLOMERULAR FILTRATION RATE ML/MIN/1.73 SQ M.PREDICTED >90.0 Normal >60.0 [facility] Comment on above: Result Comment: Calc ulation based on the Chronic Kidney Disease Epidemiology Collaboration (CKD-EPI) equation refit without adjustment for race Performed By: #### Elza ABAlka, [id number], LAB15 ####Vp Medical: ROSALVA LOPEZ ([id number])[facility])[address] [place] [address] Glucose [Mass/Vol] 128 mg/dL High 70-100 [facility] Comment on above: Performed By: #### Elza ABAlka, [id number], LAB15 ####Vp Medical: ROSALVA LOPEZ ([id number])[facility])[address] [place] [address] Potassium [Moles/Vol] 3.2 mmol/L Low 3.5-5.1 [facility] Comment on above: Performed By: #### Elza ABAlka, [id number], LAB15 ####Vp Medical: ROSALVA LOPEZ ([id number])[facility])[address] [place] [address] Sodium [Moles/Vol] 138 mmol/L Normal 135-145 [facility] Comment on above: Performed By: #### Elza ABAlka, [id number], LAB15 ####Vp Medical: ROSALVA LOPEZ ([id number])[facility])[address] [place] [address] Urea nitrogen [Mass/Vol] 11 mg/dL Normal 7-17 [facility] Comment on above: Performed By: #### Ezla ABAlka, [id number], LAB15 ####Vp Medical: ROSALVA LOPEZ ([id number])[facility])[address] [place] [address] BLOOD GAS, VENOUSon 09-29-19 24 Base excess Calc (BldV) [Moles/Vol] 4.9 mmol/L High -3.0-3.0 [facility] Comment on above: Performed By: #### L AB79 ####Vp Medical: ROSALVA LOPEZ ([id number])[facility])[address] [place] [address] CO2 [Moles/Vol] 31.7 mmol/L High 24.0-28.0 [facility] Comment on above: Performed By: #### L AB79 ####Vp Medical: ROSALVA LOPEZ ([id number])[facility])[address] [place] [address] HCO3 (Bld) [Moles/Vol] 30.2 mmol/L High 23.0-27.0 [facility] Comment on above: Performed By: #### L AB79 ####Vp Medical: ROSALVA LOPEZ ([id number])[facility])[address] [place] [address] Hemoglobin (Bld) [Mass/Vol] 8.5 g/dL Normal Screen Only [facility] Comment on above: Performed By: #### L AB79 ####Vp Medical: ROSALVA LOPEZ ([id number])[facility])[address] [place] [address] OXYGEN (MM HG) IN VENOUS BLOOD 44.0 mm Hg Normal 30.0-50.0 [facility] Comment on above: Performed By: #### L AB79 ####Vp Medical: ROSALVA LOPEZ ([id number])[facility])[address] [place] [address] OXYGEN SATURATION (%) IN VENOUS BLOOD 76.8 % Normal 60.0-80.0 [facility] Comment on above: Performed By: #### L AB79 ####Vp Medical: ROSALVA LOPEZ ([id number])[facility])[address] [place] [address] [place] PCO2, GÉNESIS 49.2 mm Hg Normal 40.0-55.0 [facility] Comment on above: Performed By: #### L AB79 ####Vp Medical: ROSALVA LOPEZ ([id number])[facility] ([facility])[address] [place] [address] PH VENOUS 7.406 Normal 7.330-7.430 [facility] Comment on above: Performed By: #### L AB79 ####Vp Medical: ROSALVA LOPEZ ([id number])[facility] [place] [address] SOURCE OF OXYGEN 50% Oxygen Normal [facility] Comment on above: Performed By: #### L AB79 ####Vp Medical: ROSALVA LOPEZ ([id number])[facility] [place] [address] Bacteria identified Aer cx N om (Lower resp)Ordered By: Wayne Burns on 09-29-2023 Gram Stain Result Many Polymorphonucle ar leukocytes per low power field Abnormal [facility] Gram Stain Result Rare Epithelial cell s per low power field Abnormal [facility] Gram Stain Result Positive Abnormal [facility] Interpretation and review of laboratory results Abnormal [facility] Basic metabolic 1998 panelon 09-29-2023 Anion gap [Moles/Vol] 8 mmol/L 3 - 13 mmol/L [facility] Calcium [Mass/Vol] 8.6 mg/dL 8.4 - 10. 4 mg/dL [facility] Chloride [Moles/Vol] 100 mmol/L 98 - 10 7 mmol/L [facility] CO2 [Moles/Vol] 30 mmol/L 22 - 30 mmol/L [facility] Creatinine [Mass/Vol] 0.45 mg/dL Low 0.52 - 1.04 mg/dL [facility] GFR/1.73 sq M.predicted MDRD (S/P/Bld) [Vol rate/Area] - PINF [facility] Glucose [Mass/Vol] 128 mg/dL High 70 - 100 mg/dL [facility] Interpretation and review of laboratory results Abnormal [facility] Potassium [Moles/Vol] 3.2 mmol/L Low 3.5 - 5.1 mmol/L [facility] Sodium [Moles/Vol] 138 mmol/L 135 - 145 mmol/L [facility] Urea nitrogen [Mass/Vol] 11 mg/dL 7 - 17 mg/dL [facility] CARECOORDon 09-29-2023 CARECOORD Normal [facility] CBC W Auto Differential pane l (Bld)Ordered By: Letha Zhou on 09-29-2023 Erythrocyte distribution width (RBC) [Ratio] 13.7 % 11.5 - 15.0 % [facility] Hematocrit (Bld) [Volume fraction] 25.8 % Low 35.0 - 47.0 % [facility] Hemoglobin (Bld) [Mass/Vol] 8.2 g/dL Low 11.7 - 16.0 g/dL [facility] Interpretation and review of laboratory results Abnormal [facility] IPF 8 [facility] MCH (RBC) [Entitic mass] 28.8 pg 26.0 - 34.0 pg [facility] MCHC (RBC) [Mass/Vol] 31.8 % 30.5 - 36.0 % [facility] MCV (RBC) [Entitic vol] 90.5 fL 77.0 - 99.0 fL [facility] Platelet mean volume (Bld) [Entitic vol] 11.2 fL 9.0 - 12.7 fL [facility] Platelets (Bld) [#/Vol] 102 10*3/uL Low 140 - 440 10*3/uL [facility] RBC (Bld) [#/Vol] 2.85 10*6/uL Low 3.80 - 5.2 0 10*6/uL [facility] WBC (Bld) [#/Vol] 8.4 10*3/uL 3.6 - 10.7 10*3/uL [facility] CBC WITH AUTO DIFFERENTIALon 09-29-2023 Erythrocyte distribution width (RBC) [Ratio] 13.7 % Normal 11.5-15.0 [facility] Comment on above: Performed By: #### L [id number], [id number] ####V[employer] Medical: ROSALVA LOPEZ ([id number])[address] Hematocrit (Bld) [Volume fraction] 25.8 % Low 35.0-47.0 [facility] Comment on above: Performed By: #### L [id number], [id number] ####Vp Medical: ROSALVA LOPEZ ([id number])[facility] [address] Hemoglobin (Bld) [Mass/Vol] 8.2 g/dL Low 11.7-16.0 [facility] Comment on above: Performed By: #### Elza [id number], [id number] ####Vp Medical: ROSALVA LOPEZ ([id number])[facility])[address] [place] [address] [place] IPF 8 Normal [facility] Comment on above: Performed By: #### Elza [id number], [id number] ####Vp Medical: ROSALVA LOPEZ ([id number])[facility])[address] [place] [address] MCH (RBC) [Entitic mass] 28.8 pg Normal 26.0-34.0 [facility] Comment on above: Performed By: #### Elza HENRY, [id number] ####Vp Medical: ROSALVA LOPEZ ([id number])[facility])[address] [place] [address] MCHC 31.8 % Normal 30.5-36.0 [facility] Comment on above: Performed By: #### Elza HERNY, [id number] ####Vp Medical: ROSALVA LOPEZ ([id number])[facility])[address] [place] [address] MCV (RBC) [Entitic vol] 90.5 fL Normal 77.0-99.0 [facility] Comment on above: Performed By: #### Elza HENRY, [id number] ####Vp Medical: ROSALVA LOPEZ ([id number])[facility])[address] [place] [address] Platelet mean volume (Bld) [Entitic vol] 11.2 fL Normal 9.0-12.7 [facility] Comment on above: Performed By: #### Elza [id number], [id number] ####Vp Medical: ROSALVA LOPEZ ([id number])[facility])[address] [place] [address] Platelets (Bld) [#/Vol] 102 10*3/uL Low 140-440 [facility] Comment on above: Performed By: #### L [id number], [id number] ####Vp Medical: ROSALVA LOPEZ ([id number])[facility] ([facility])[address] [place] [address] RBC (Bld) [#/Vol] 2.85 10*6/uL Low 3.80-5.20 [facility] Comment on above: Performed By: #### L [id number], [id number] ####Vp Medical: ROSALVA LOPEZ ([id number])[facility] ([facility])[address] [place] [address] WBC (Bld) [#/Vol] 8.4 10*3/uL Normal 3.6-10.7 [facility] Comment on above: Performed By: #### L [id number], [id number] ####[employer] Medical: ROSALVA LOPEZ ([id number])[facility] [place] [address] Consulton 09-29-2023 Consult Normal [facility] ECG 12-LEADon 09-29-2023 ECG 12-LEAD IMPRESSION: Sinus rhythm Electronically Signed On 09-29-2023 08:36:11 EDT by Rosalina Welch [facility] Laboratory - Chemistry and C hemistry - challengeOrdered By: Balwinder Contreras on 09-29-2023 Base excess Calc (BldV) [Moles/Vol] 4.9 mmol/L High -3.0 - 3.0 mmol/L [facility] CO2 (BldV) [Partial pressure] 49.2 mm[Hg] [facility] CO2 [Moles/Vol] 31.7 mmol/L High 24.0 - 28.0 mmol/L [facility] HCO3 (Bld) [Moles/Vol] 30.2 mmol/L High 23.0 - 27.0 mmol/L [facility] Oxygen (BldV) [Partial pressure] 44.0 mm[Hg] [facility] pH (BldV) 7.406 [pH] 7.330 - 7.430 [facility] Laboratory - Chemistry and C hemistry - challengeon 09-29-2023 Magnesium [Mass/Vol] 1.6 mg/dL 1.6 - 2 .3 mg/dL [facility] Laboratory - Hematology and Cell countsOrdered By: Balwinder Contreras on 09-29-2023 Hemoglobin (Bld) [Mass/Vol] 8.5 g/dL Screen Only [facility] Laboratory - Hematology and Cell countson 09-29-2023 Band form neutrophils (Bld) [#/Vol] 0.3 10*3/uL High NINF - 0.0 10*3/uL [facility] Band form neutrophils/100 WBC (Bld) 3 % High NINF - 0 % [facility] Lymphocytes (Bld) [#/Vol] 0.2 10*3/uL Low 1.0 - 4.3 10*3/uL [facility] Lymphocytes/100 WBC (Bld) 2 % Low 15 - 45 % [facility] Monocytes (Bld) [#/Vol] 0.1 10*3/uL 0.0 - 0.9 10*3/uL [facility] Monocytes/100 WBC (Bld) 1 % Low 5 - 13 % [facility] Neutrophils (Bld) [#/Vol] 8.1 10*3/uL High 1.8 - 7.5 10*3/uL [facility] RBC morphology finding Nom (Bld) Normal [facility] Segmented neutrophils/100 WBC (Bld) 94 % High 38 - 82 % [facility] - Microbiology an d Antimicrobial susceptibilityOrdered By: Wayne Burns on 09-29-2023 Bacteria identified Aer cx Nom (Lower resp) Few respiratory ailyn present. [facility] MAGNESIUMon 09-29-2023 Magnesium [Mass/Vol] 1.6 mg/dL Normal 1.6-2.3 [facility] Comment on above: Performed By: #### L [id number], [id number], [id number] ####[facility]: ROSALVA LOPEZ ([id number])[address] MANUAL DIFFERENTIAL (CELLAVI DUSTIN)on 09-29-2023 BAND NEUTROPHILS TOTAL PER COUNTED LEUKOCYTES BY MANUAL COUNT 3 Normal [facility] Comment on above: Performed By: #### L [id number], [id number] ####[facility]: ROSALVA LOPEZ ([id number])[facility] ([facility])18 [place] [address] [place] BANDS (10*3/UL) IN BLOOD-CELLAVISION 0.3 10*3/uL High <=0.0 [facility] Comment on above: Performed By: #### L [id number], [id number] ####[employer]: ROSALVA LOPEZ ([id number])[facility] ([facility])[address] [place] [address] [place] BASOPHILS TOTAL PER COUNTED LEUKOCYTES BY MANUAL COUNT Normal [facility] Comment on above: Performed By: #### L [id number], [id number] ####[facility]: ROSALVA LOPEZ ([id number])[facility] ([facility])[address] [place] [address] BLASTS TOTAL PER COUNTED LEUKOCYTES BY MANUAL COUNT Normal [facility] Comment on above: Performed By: #### L [id number], [id number] ####[facility]: ROSALVA LOPEZ ([id number])[facility] ([facility])[address] [place] [address] EOSINOPHILS TOTAL PER COUNTED LEUKOCYTES BY MANUAL COUNT Normal [facility] Comment on above: Performed By: #### L [id number], [id number] ####[facility]: ROSALVA LOPEZ ([id number])[facility] ([facility])[address] [place] [address] [place] LYMPHOCYTES (10*3/UL) IN BLOOD-CELLAVISION 0.2 10*3/uL Low 1.0-4.3 [facility] Comment on above: Performed By: #### L [id number], [id number] ####[facility]: ROSALVA LOPEZ ([id number])[facility] ([facility])[address] [place] [address] [place] LYMPHOCYTES TOTAL PER COUNTED LEUKOCYTES BY MANUAL COUNT 2 Normal [facility] Comment on above: Performed By: #### L [id number], [id number] ####[facility]: ROSALVA LOPEZ ([id number])[facility] ([facility])[address] [place] [address] [place] LYMPHOCYTES/100 LEUKOCYTES IN BLOOD-CELLAVISION 2 % Low 15-45 [facility] Comment on above: Performed By: #### L [id number], [id number] ####[facility]: ROSALVA LOPEZ ([id number])[facility] ([facility])[address] [place] [address] [place] METAMYELOCYTES TOTAL PER COUNTED LEUKOCYTES BY MANUAL COUNT Normal [facility] Comment on above: Performed By: #### L [id number], [id number] ####[facility]: ROSALVA LOPEZ ([id number])[facility] ([facility])[address] [place] [address] [place] MONOCYTES (10*3/UL) IN BLOOD-CELLAVISION 0.1 10*3/uL Normal 0.0-0.9 [facility] Comment on above: Performed By: #### L [id number], [id number] ####[facility]: ROSALVA LOPEZ ([id number])[facility] ([facility])[address] [place] [address] [place] MONOCYTES TOTAL PER COUNTED LEUKOCYTES BY MANUAL COUNT 1 Normal [facility] Comment on above: Performed By: #### L [id number], [id number] ####[facility]: ROSALVA LOPEZ ([id number])[facility] ([facility])[address] [place] [address] [place] MONOCYTES/100 LEUKOCYTES IN BLOOD-JENI 1 % Low 5-13 [facility] Comment on above: Performed By: #### L [id number], [id number] ####[facility]: ROSALVA LOPEZ ([id number])[facility] ([facility])[address] [place] [address] [place] MYELOCYTES COUNTED BY MANUAL COUNT Normal [facility] Comment on above: Performed By: #### L [id number], [id number] ####[facility] Medical: ROSALVA LOPEZ ([id number])[facility] ([facility])[address] [place] [address] [place] NEUTROPHILS BAND FORM/100 LEUKOCYTES IN BLOOD-CELLAVISI 3 % High <=0 [facility] Comment on above: Performed By: #### L [id number], [id number] ####[facility]: ROSALVA LOPEZ ([id number])[facility] ([facility])[address] [place] [address] [place] NEUTROPHILS TOTAL PER COUNTED LEUKOCYTES BY MANUAL COUNT 93 Normal [facility] Comment on above: Performed By: #### L [id number], [id number] ####[facility] Medical: ROSALVA LOPEZ ([id number])[facility] ([facility])[address] [place] [address] PROMYELOCYTES TOTAL PER COUNTED LEUKOCYTES BY MANUAL COUNT [facility] Comment on above: Performed By: #### L [id number], [id number] ####[facility] Medical: ROSALVA LOPEZ ([id number])[facility] ([facility])[address] [place] [address] RBC MORPHOLOGY IN BLOOD Normal Normal [facility] Comment on above: Performed By: #### Elza [id number], [id number] ####[facility] Medical: ROSALVA LOPEZ ([id number])[facility])[address] [place] [address] [place] SEGMENTED NEUTROPHILS (10*3/UL) IN BLOOD-CELLAVISION 8.1 10*3/uL High 1.8-7.5 [facility] Comment on above: Performed By: #### L [id number], [id number] ####[facility]: ROSALVA LOPEZ ([id number])[facility] ([facility])[address] [place] [address] [place] SEGMENTED NEUTROPHILS/100 LEUKOCYTES-CE 94 % High 38-82 [facility] Comment on above: Performed By: #### L [id number], [id number] ####[facility]: ROSALVA LOPEZ ([id number])[facility] ([facility])[address] [place] [address] [place] UNCLASSIFIED CELLS TOTAL PER COUNTED LEUKOCYTES BY MANUAL COUNT [facility] Comment on above: Performed By: #### L [id number], [id number] ####[facility]: ROSALVA [id number])[facility] ([facility])[address] [place] [address] VARIANT LYMPHOCYTES TOTAL PER COUNTED LEUKOCYTES BY MANUAL COUNT Normal [facility] [employer] [facility] Comment on above: Performed By: #### L [id number], [id number] ####[facility] Medical: ROSALVA LOPEZ ([id number])[facility] ([facility])[address] [place] [address] No Panel InformationOrdered By: Balwinder Contreras on 09-29-2023 Interpretation and review of laboratory results Abnormal [facility] Health Source Of Oxygen 50% Oxygen [facility] [employer] [facility] No Panel Informationon 09-28 Bands Manual 3 [facility] Interpretation and review of laboratory results Abnormal [employer] Lymphocytes Manual 2 [facility] Monocytes Manual 1 [employer] Neutrophils Manual 93 [facility] [employer] [facility] CV EPIPHANY [employer] Interpretation and review of laboratory results Normal [facility] [employer] No Panel InformationOrdered By: Rosalina Welch on 09-29-2023 P [place] 81 degrees [employer] Work Phone: NV Interval 139 ms [employer] Work Phone: QRS [place] 69 degrees [employer] Work Phone: QRSD Interval 92 ms [employer] Work Phone: QT Interval 355 ms [employer] Work Phone: QTC Interval 417 ms [employer] Work Phone: T Wave [place] 55 degrees [employer] Work Phone: [employer] Work Phone: PHOSPHORUSon 09-29-2023 Phosphate [Mass/Vol] 3.4 mg/dL Normal 2.5-4.5 [facility] [employer] Comment on above: Performed By: #### L [id number], [id number], LAB15 ####[facility] Medical: ROSALVA LOPEZ ([id number])[facility] ([facility])[address] [place] [address] Phosphate [Moles/Vol]on 09-03 Phosphate [Mass/Vol] 3.4 mg/dL 2.5 - 4 .5 mg/dL [facility] Progress Noteon 09-29-2023 Progress Note OCCUPATIONAL THERAPY [facility] Name/MRN: Luiza May ([id number]) Date: 09/29/2023 Pt not appropriate for therapy at this time, will continue to follow. Lu Magallanes, OT Normal [facility] Progress Note Normal [facility] Vital signsOrdered By: Balwinder Contreras on 09-29-2023 Oxygen saturation in Venous blood 76.8 % 60.0 - 80.0 % [facility] Vital signsOrdered By: Miguelina Welch on 09-29-2023 Heart rate 83 /min bpm [facility] Work Phone: XR CHEST 1 VIEWon 09-29-2023 XR CHEST 1 VIEW Normal [facility] XR Chest Single viewon 09-28 [facility] Radiology Study observation (narrative) [facility] XR Chest Single viewOrdered By: Howie Clarke on 09-29-2023 [facility] [employer] Work Phone: BASIC METABOLIC PANELon 09-03 Anion gap [Moles/Vol] 5 mmol/L Normal 3-13 [facility] Comment on above: Performed By: #### L AB20, [id number], LAB15 ####[facility] [employer]: ROSALVA LOPEZ ([id number])[facility])[address] [place] [address] Calcium [Mass/Vol] 8.1 mg/dL Low 8.4-10.4 [facility] Comment on above: Performed By: #### L AB20, [id number], LAB15 ####[facility] [employer]: ROSALVA LOPEZ ([id number])[facility] ([facility])[address] [place] [address] [place] Chloride [Moles/Vol] 106 mmol/L Normal 98-107 [facility] Comment on above: Performed By: #### L AB20, [id number], LAB15 ####[employer]: ROSALVA LOPEZ ([id number])[facility])[address] [place] [address] [place] CO2 [Moles/Vol] 27 mmol/L Normal 22-30 [facility] Comment on above: Performed By: #### L AB20, [id number], LAB15 ####[facility]: ROSALVA LOPEZ ([id number])[facility])[address] [place] [address] Creatinine [Mass/Vol] 0.46 mg/dL Low 0.52-1.04 [facility] Comment on above: Performed By: #### L AB20, [id number], LAB15 ####[facility] Medical: ROSALVA LOPEZ ([id number])[facility] ([facility])[address] [place] [address] GLOMERULAR FILTRATION RATE ML/MIN/1.73 SQ M.PREDICTED >90.0 Normal >60.0 [facility] Comment on above: Result Comment: Calc ulation based on the Chronic Kidney Disease Epidemiology Collaboration (CKD-EPI) equation refit without adjustment for race Performed By: #### L AB20, [id number], LAB15 ####[facility] Medical: ROSALVA LOPEZ ([id number])[facility])[address] [place] [address] [place] Glucose [Mass/Vol] 101 mg/dL High 70-100 [facility] Comment on above: Performed By: #### L AB20, [id number], LAB15 ####[facility] Medical: ROSALVA LOPEZ ([id number])[facility] ([facility])[address] [place] [address] [place] Potassium [Moles/Vol] 3.7 mmol/L Normal 3.5-5.1 [facility] Comment on above: Performed By: #### L AB20, [id number], LAB15 ####[facility] Medical: ROSALVA LOPEZ ([id number])[facility] ([facility])[address] [place] [address] [place] Sodium [Moles/Vol] 138 mmol/L Normal 135-145 [facility] Comment on above: Performed By: #### L AB20, [id number], LAB15 ####V[facility] Medical: ROSALVA LOPEZ ([id number])[facility] ([facility])[address] [place] [address] Urea nitrogen [Mass/Vol] 11 mg/dL Normal 7-17 [facility] Comment on above: Performed By: #### L AB20, [id number], LAB15 ####[facility] Medical: ROSALVA LOPEZ ([id number])[facility])[address] [place] [address] BLOOD GAS ARTERIALon 024 Base excess Calc (Bld) [Moles/Vol] 0.6 mmol/L Normal -3.0-3.0 [facility] Comment on above: Performed By: #### L AB76 ####[facility] Medical: ROSALVA LOPEZ ([id number])[facility])[address] [place] [address] CO2 [Moles/Vol] 27.1 mmol/L High 23.0-27.0 [facility] Comment on above: Performed By: #### L AB76 ####Vp Medical: ROSALVA LOPEZ ([id number])[facility] ([facility])[address] [place] [address] HCO3 (Bld) [Moles/Vol] 25.8 mmol/L High 21.0-25.0 [facility] Comment on above: Performed By: #### L AB76 ####Vp Medical: ROSALVA LOPEZ ([id number])[facility])[address] [place] [address] Hemoglobin (Bld) [Mass/Vol] 9.1 g/dL Normal Screen Only [facility] Comment on above: Performed By: #### L AB76 ####Vp Medical: ROSALVA LOPEZ ([id number])[facility])[address] [place] [address] OXYGEN SATURATION (%) IN ARTERIAL BLOOD 98.6 % Normal 95.0-100.0 [facility] Comment on above: Performed By: #### L AB76 ####Vp Medical: ROSALVA LOPEZ ([id number])[facility])[address] [place] [address] [place] PCO2 ARTERIAL 44.0 mm Hg Normal >35.0-<45.0 [facility] Comment on above: Performed By: #### L AB76 ####Vp Medical: ROSALVA LOPEZ ([id number])[facility])[address] [place] [address] PH ARTERIAL 7.386 Normal 7.350-7.450 [facility] Comment on above: Performed By: #### L AB76 ####Vp Medical: ROSALVA LOPEZ ([id number])[facility])[address] [place] [address] PO2 ARTERIAL 162.5 mm Hg High 80.0-100.0 [facility] Comment on above: Performed By: #### L AB76 ####Vp Medical: ROSALVA LOPEZ ([id number])[facility])[address] [place] [address] SOURCE OF OXYGEN 60% Oxygen Normal [facility] Comment on above: Performed By: #### L AB76 ####Vp Medical: ROSALVA LOPEZ ([id number])[facility])[address] [place] [address] CBC WITH AUTO DIFFERENTIALon 09-28-2023 Basophils (Bld) [#/Vol] 0.0 10*3/uL Normal 0.0-0.2 [facility] Comment on above: Performed By: #### L [id number] ####[facility]p Medical: ROSALVA LOPEZ ([id number])[facility])[address] [place] [address] Basophils/100 WBC (Bld) 0.2 % Normal 0.0-2.0 [facility] Comment on above: Performed By: #### L [id number] ####Vp Medical: ROSALVA LOPEZ ([id number])[facility])[address] [place] [address] Eosinophils (Bld) [#/Vol] 0.1 10*3/uL Normal 0.0-0.5 [facility] Comment on above: Performed By: #### L [id number] ####Vp Medical: ROSALVA LOPEZ ([id number])[facility])[address] [place] [address] Eosinophils/100 WBC (Bld) 1.7 % Normal 0.0-6.0 [facility] Comment on above: Performed By: #### L [id number] ####Vp Medical: ROSALVA LOPEZ ([id number])[facility])[address] [place] [address] Erythrocyte distribution width (RBC) [Ratio] 13.9 % Normal 11.5-15.0 [facility] Comment on above: Performed By: #### L [id number] ####[facility] Medical: ROSALVA LOPEZ ([id number])[address] Hematocrit (Bld) [Volume fraction] 25.0 % Low 35.0-47.0 [facility] Comment on above: Performed By: #### L [id number] ####Vp Medical: ROSALVA LOPEZ ([id number])[facility])[address] [place] [address] Hemoglobin (Bld) [Mass/Vol] 7.7 g/dL Low 11.7-16.0 [facility] Comment on above: Performed By: #### L [id number] ####Vp Medical: ROSALVA LOPEZ ([id number])[facility])[address] [place] [address] IMMATURE GRANS % 0.3 % Normal 0.0-2.0 [facility] Comment on above: Performed By: #### L [id number] ####Vp Medical: ROSALVA LOPEZ ([id number])[facility])[address] [place] [address] IMMATURE GRANS ABSOLUTE 0.0 10*3/uL Normal <0.1 [facility] Comment on above: Performed By: #### L [id number] ####Vp Medical: ROSALVA LOPEZ ([id number])[facility])[address] [place] [address] [place] IPF 6 Normal [facility] Comment on above: Performed By: #### L [id number] ####Vp Medical: ROSALVA LOPEZ ([id number])[facility])[address] [place] [address] Lymphocytes (Bld) [#/Vol] 1.3 10*3/uL Normal 1.0-4.3 [facility] Comment on above: Performed By: #### L [id number] ####Vp Medical: ROSALVA LOPEZ ([id number])[facility])[address] [place] [address] Lymphocytes/100 WBC (Bld) 19.5 % Normal 15.0-45.0 [facility] Comment on above: Performed By: #### L [id number] ####Vp Medical: ROSALVA LOPEZ ([id number])[facility])[address] [place] [address] MCH (RBC) [Entitic mass] 28.5 pg Normal 26.0-34.0 [facility] Comment on above: Performed By: #### L [id number] ####[facility] Medical: ROSALVA LOPEZ ([id number])[facility])[address] [place] [address] MCHC 30.8 % Normal 30.5-36.0 [facility] Comment on above: Performed By: #### L [id number] ####Vp Medical: ROSALVA LOPEZ ([id number])[facility])[address] [place] [address] MCV (RBC) [Entitic vol] 92.6 fL Normal 77.0-99.0 [facility] Comment on above: Performed By: #### L [id number] ####[facility]p Medical: ROSALVA LOPEZ ([id number])[facility])[address] [place] [address] Monocytes (Bld) [#/Vol] 0.7 10*3/uL Normal 0.0-0.9 [facility] Comment on above: Performed By: #### L [id number] ####[facility] Medical: ROSALVA LOPEZ ([id number])[facility])[address] [place] [address] Monocytes/100 WBC (Bld) 11.0 % Normal 5.0-13.0 [facility] Comment on above: Performed By: #### L [id number] ####[facility]p Medical: ROSALVA LOPEZ ([id number])[facility])[address] [place] [address] NEUTROPHILS ABSOLUTE 4.5 10*3/uL Normal 1.8-7.5 [facility] Comment on above: Performed By: #### L [id number] ####[employer] Medical: ROSALVA LOPEZ ([id number])[facility])[address] [place] [address] Neutrophils/100 WBC (Bld) 67.3 % Normal 38.0-82.0 [facility] Comment on above: Performed By: #### L [id number] ####[employer] Medical: ROSALVA LOPEZ ([id number])[facility] ([facility])[address] [place] [address] NRBC 0.0 /100 WBCs Normal 0.0-2.0 [facility] Comment on above: Performed By: #### L [id number] ####[employer]: ROSALVA LOPZE ([id number])[facility])[address] [place] [address] Platelet mean volume (Bld) [Entitic vol] 10.6 fL Normal 9.0-12.7 [facility] Comment on above: Performed By: #### L [id number] ####[employer] [facility]: ROSALVA LOPEZ ([id number])[facility])[address] [place] [address] [place] Platelets (Bld) [#/Vol] 101 10*3/uL Low 140-440 [facility] Comment on above: Performed By: #### L [id number] ####[employer]: ROSALVA LOPEZ ([id number])[facility])[address] [place] [address] RBC (Bld) [#/Vol] 2.70 10*6/uL Low 3.80-5.20 [facility] Comment on above: Performed By: #### L [id number] ####Vp Medical: ROSALVA LOPEZ ([id number])[facility])[address] [place] [address] WBC (Bld) [#/Vol] 6.6 10*3/uL Normal 3.6-10.7 [facility] Comment on above: Performed By: #### L [id number] ####[employer]: ROSALVA LOPEZ ([id number])[facility])[address] [place] [address] ECG 12-LEADon 09-28-2023 ECG 12-LEAD IMPRESSION: Sinus rhythm Nonspecific T abnormalities, lateral leads INFERIOR INFARCT, OLD Electronically Signed On 09-28-2023 13:16:03 EDT by Dominic Vargas Normal [facility] HEPATIC FUNCTION PANELon Albumin [Mass/Vol] 3.5 g/dL Normal 3.5-5.0 [facility] Comment on above: Performed By: #### L AB20, [id number], LAB15 ####[employer]: ROSALVA LOPEZ ([id number])[facility])[address] [place] [address] ALP [Catalytic activity/Vol] 101 U/L Normal 38-126 [facility] Comment on above: Performed By: #### L AB20, [id number], LAB15 ####[employer]: ROSALVA LOPEZ ([id number])[facility])[address] [place] [address] ALT [Catalytic activity/Vol] 62 U/L High 0-34 [facility] Comment on above: Performed By: #### L AB20, [id number], LAB15 ####[employer]: ROSALVA LOPEZ ([id number])[facility])[address] [place] [address] AST [Catalytic activity/Vol] 47 U/L High 15-46 [facility] Comment on above: Performed By: #### L AB20, [id number], LAB15 ####[employer]: ROSALVA LOPEZ ([id number])[facility])[address] [place] [address] Bilirubin [Mass/Vol] 0.6 mg/dL Normal 0.2-1.3 [facility] Comment on above: Performed By: #### L AB20, [id number], LAB15 ####[employer]p Medical: ROSALVA LOPEZ ([id number])[facility])[address] [place] [address] Bilirubin.indirect [Mass/Vol] 0.0 mg/dL Normal 0.0-0.3 [facility] Comment on above: Performed By: #### L AB20, [id number], LAB15 ####[employer]: ROSAVLA LOPEZ ([id number])[address] Protein [Mass/Vol] 6.0 g/dL Low 6.3-8.2 [facility] Comment on above: Performed By: #### L AB20, [id number], LAB15 ####[employer]: ROSALVA LOPEZ ([id number])[facility])[address] [place] [address] IDNon 09-28-2023 IDN Normal [facility] Laboratory - Chemistry and C hemistry - challengeOrdered By: Bisi Keys on 09-28-2023 Base excess Calc (Bld) [Moles/Vol] 0.6 mmol/L -3.0 - 3.0 mmol/L [facility] CO2 (Bld) [Partial pressure] 44.0 mm[Hg] - PINF [facility] CO2 [Moles/Vol] 27.1 mmol/L High 23.0 - 27.0 mmol/L [facility] HCO3 (Bld) [Moles/Vol] 25.8 mmol/L High 21.0 - 25.0 mmol/L [facility] Oxygen (Bld) [Partial pressure] 162.5 mm[Hg] High [facility] pH (Bld) 7.386 [pH] 7.350 - 7.450 [facility] Laboratory - Chemistry and C hemistry - challengeon 09-28-2023 Base excess Calc (Bld) [Moles/Vol] -0.6000 mmol/L -3.0 - 3.0 mmol/L [facility] CO2 (Bld) [Partial pressure] 80.0 mm[Hg] Critically high [facility] HCO3 (Bld) [Moles/Vol] 29.2 mmol/L High 21.0 - 25.0 mmol/L [facility] Oxygen (Bld) [Partial pressure] 439.0 mm[Hg] High [facility] pH (Bld) 7.170 [pH] Critically low 7.350 - 7.450 pH [facility] Potassium [Moles/Vol] 3.4 mmol/L Low 3.5 - 5.1 mmol/L [facility] Sodium [Moles/Vol] 145 mmol/L 133 - 145 mmol/L [facility] Laboratory - Hematology and Cell countsOrdered By: Bisi Keys on 09-28-2023 Hemoglobin (Bld) [Mass/Vol] 9.1 g/dL Screen Only [facility] Laboratory - Hematology and Cell countson 09-28-2023 Hematocrit (BldV) [Volume fraction] 30 % Low 37 - 52 % [facility] MAGNESIUMon 09-28-2023 Magnesium [Mass/Vol] 1.9 mg/dL Normal 1.6-2.3 [facility] Comment on above: Performed By: #### L [id number], [id number], [id number] ####[facility]: ROSALVA LOPEZ ([id number])[address] No Panel InformationOrdered By: Bisi Keys on 09-28-2023 Interpretation and review of laboratory results Abnormal [facility] Source Of Oxygen 60% Oxygen [facility] No Panel InformationOrdered By: Dominic Vargas on 09-28-2023 P [place] 72 degrees [facility] [employer] Work Phone: NV Interval 111 ms [facility] [employer] Work Phone: QRS [place] 60 degrees [facility] [employer] Work Phone: QRSD Interval 84 ms [facility] [employer] Work Phone: QT Interval 391 ms [facility]: QTC Interval 463 ms [facility] Work [facility]: T Wave [place] 65 degrees [employer] Work Phone: [facility] Work [facility]: No Panel Informationon 09-27 CV EPIPHANY [facility] [employer] [id number] [facility] [employer] Interpretation and review of laboratory results Abnormal [facility] No Panel InformationOrdered By: Severo Hurst on 09-28-2023 [facility]: Nursing Noteon 09-28-2023 Nursing Note Normal [facility] Progress Noteon 09-28-2023 Progress Note 09/28/23 1754 Wean Screen PEEP =[id number] No Normal [facility] Progress Note PHYSICAL THERAPY [facility] Name/MRN: Luiza May ([id number]) Date: 09/28/2023 PT orders received. Pt had to be re-intubated and sedated this AM. Will hold PT and continue to follow with PT screens. Kadi Mcneal, PT Normal [facility] Progress Note Normal [facility] Progress Note Normal [facility] Progress Note Normal [facility] Progress Note Vancomycin therapy h as been discontinued by Mildred Smith on 09/27. Thank you for the consult. Pharmacy signing off for vancomycin dosing. Kayla Taylor [facility], PharmD Date: 09/28/23 Time: 6:53 AM Normal [facility] Progress Note Normal [facility] US Heart Transthoracicon IVSd 0.9 cm 0.6 - 0.9 cm [facility] [employer] Vital signsOrdered By: Karine Vargas on 09-28-2023 Heart rate 84 /min bpm [facility] Phone: XR CHEST 1 VIEWon 09-28-2023 XR CHEST 1 VIEW Normal [facility] XR Chest Single viewon 09-27 [facility] Radiology Study observation (narrative) [employer] BASIC METABOLIC PANELon 09-03 Anion gap [Moles/Vol] 4 mmol/L Normal 3-13 [facility] Comment on above: Performed By: #### L AB31, LAB20, PJZ540, BHF545, LAB15 ####[employer]: ROSALVA LOPEZ ([id number])[facility])[address] [place] [address] Calcium [Mass/Vol] 8.3 mg/dL Low 8.4-10.4 [facility] Comment on above: Performed By: #### L AB31, LAB20, QWR623, SIU664, LAB15 ####[employer]: ROSALVA LOPEZ ([id number])[facility])[address] [place] [address] Chloride [Moles/Vol] 101 mmol/L Normal 98-107 [facility] Comment on above: Performed By: #### L AB31, LAB20, WML847, FFH851, LAB15 ####[employer]: ROSALVA LOPEZ ([id number])[facility])[address] [place] [address] CO2 [Moles/Vol] 34 mmol/L High 22-30 [facility] Comment on above: Performed By: #### L AB31, LAB20, NWM518, FSA561, LAB15 ####[employer]: ROSALVA LOPEZ ([id number])[facility])[address] [place] [address] Creatinine [Mass/Vol] 0.54 mg/dL Normal 0.52-1.04 [facility] Comment on above: Performed By: #### L AB31, LAB20, MIE050, YVL152, LAB15 ####[employer]: ROSALVA LOPEZ ([id number])[facility])[address] [place] [address] GLOMERULAR FILTRATION RATE ML/MIN/1.73 SQ M.PREDICTED >90.0 Normal >60.0 [facility] Comment on above: Result Comment: Calc ulation based on the Chronic Kidney Disease Epidemiology Collaboration (CKD-EPI) equation refit without adjustment for race Performed By: #### L AB31, LAB20, IOG548, WEK237, LAB15 ####[employer]: ROSALVA LOPEZ ([id number])[facility])[address] [place] [address] Glucose [Mass/Vol] 103 mg/dL High 70-100 [facility] Comment on above: Performed By: #### L AB31, LAB20, TGG095, QSQ508, LAB15 ####[employer]: ROSALVA LOPEZ ([id number])[facility])[address] [place] [address] Potassium [Moles/Vol] 3.6 mmol/L Normal 3.5-5.1 [facility] Comment on above: Performed By: #### L AB31, LAB20, CQI441, NNK900, LAB15 ####[employer]: ROSALVA LOPEZ ([id number])[facility])[address] [place] [address] Sodium [Moles/Vol] 139 mmol/L Normal 135-145 [facility] Comment on above: Performed By: #### L AB31, LAB20, UGG433, FKC006, LAB15 ####[employer]: ROSALVA LOPEZ ([id number])[facility])[address] [place] [address] Urea nitrogen [Mass/Vol] 14 mg/dL Normal 7-17 [facility] Comment on above: Performed By: #### L AB31, LAB20, PCJ877, JCU452, LAB15 ####[employer]: ROSALVA LOPEZ ([id number])[facility])[address] [place] [address] BLOOD CULTUREon 09-27-2023 Bacteria identified Cx Nom (Bld) Normal [facility] Comment on above: Performed By: #### L [id number] ####[employer]: ROSALVA LOPEZ ([id number])[facility])[address] [place] [address] Bacteria identified Cx Nom (Bld) Normal [facility] Comment on above: Performed By: #### L AB462 ####[employer]p [employer]: ROSALVA LOPEZ ([id number])[facility])[address] [place] [address] CARECOORDon 09-27-2023 CARECOORD Normal [facility] CBC WITH AUTO DIFFERENTIALon 09-27-2023 Basophils (Bld) [#/Vol] 0.0 10*3/uL Normal 0.0-0.2 [facility] Comment on above: Performed By: #### L [id number] ####[employer]: ROSALVA LOPEZ ([id number])[facility])[address] [place] [address] Basophils/100 WBC (Bld) 0.2 % Normal 0.0-2.0 [facility] Comment on above: Performed By: #### L [id number] ####[employer]: ROSALVA LOPEZ ([id number])[facility])[address] [place] [address] Eosinophils (Bld) [#/Vol] 0.1 10*3/uL Normal 0.0-0.5 [facility] Comment on above: Performed By: #### L [id number] ####[employer]: ROSALVA LOPEZ ([id number])[facility])[address] [place] [address] Eosinophils/100 WBC (Bld) 0.8 % Normal 0.0-6.0 [facility] Comment on above: Performed By: #### L [id number] ####[employer]: ROSALVA LOPEZ ([id number])[facility])[address] [place] [address] Erythrocyte distribution width (RBC) [Ratio] 12.9 % Normal 11.5-15.0 [facility] Comment on above: Performed By: #### L [id number] ####[employer]: ROSALVA LOPEZ ([id number])[facility])[address] [place] [address] Hematocrit (Bld) [Volume fraction] 29.1 % Low 35.0-47.0 [facility] Comment on above: Performed By: #### L [id number] ####[employer]: ROSALVA LOPEZ ([id number])[facility])[address] [place] [address] Hemoglobin (Bld) [Mass/Vol] 8.8 g/dL Low 11.7-16.0 [facility] Comment on above: Performed By: #### L [id number] ####[employer]: ROSALVA LOPEZ ([id number])[facility])[address] [place] [address] IMMATURE GRANS % 0.5 % Normal 0.0-2.0 [facility] Comment on above: Performed By: #### L [id number] ####[employer]: ROSALVA LOPEZ ([id number])[facility])[address] [place] [address] IMMATURE GRANS ABSOLUTE 0.0 10*3/uL Normal <0.1 [facility] Comment on above: Performed By: #### L [id number] ####[employer]: ROSALVA LOPEZ ([id number])[facility])[address] [place] [address] [place] IPF 5 Normal [facility] Comment on above: Performed By: #### L [id number] ####[employer]: ROSALVA LOPEZ ([id number])[facility])[address] [place] [address] Lymphocytes (Bld) [#/Vol] 2.3 10*3/uL Normal 1.0-4.3 [facility] Comment on above: Performed By: #### L [id number] ####[employer]: ROSALVA LOPEZ ([id number])[facility])[address] [place] [address] Lymphocytes/100 WBC (Bld) 26.8 % Normal 15.0-45.0 [facility] Comment on above: Performed By: #### L [id number] ####[employer]: ROSALVA LOPEZ ([id number])[facility])[address] [place] [address] MCH (RBC) [Entitic mass] 28.6 pg Normal 26.0-34.0 [facility] Comment on above: Performed By: #### L [id number] ####[employer]: ROSALVA LOPEZ ([id number])[facility])[address] [place] [address] MCHC 30.2 % Low 30.5-36.0 [facility] Comment on above: Performed By: #### L [id number] ####[employer]: ROSALVA LOPEZ ([id number])[facility])[address] [place] [address] MCV (RBC) [Entitic vol] 94.5 fL Normal 77.0-99.0 [facility] Comment on above: Performed By: #### L [id number] ####[employer]: ROSALVA LOPEZ ([id number])[facility])[address] [place] [address] Monocytes (Bld) [#/Vol] 1.0 10*3/uL High 0.0-0.9 [facility] Comment on above: Performed By: #### L [id number] ####[employer]: ROSALVA LOPEZ ([id number])[facility])[address] [place] [address] Monocytes/100 WBC (Bld) 11.3 % Normal 5.0-13.0 [facility] Comment on above: Performed By: #### L [id number] ####[employer]: ROSALVA LOPEZ ([id number])[facility])[address] [place] [address] NEUTROPHILS ABSOLUTE 5.1 10*3/uL Normal 1.8-7.5 [facility] Comment on above: Performed By: #### L [id number] ####[employer]: ROSALVA LOPEZ ([id number])[facility])[address] [place] [address] Neutrophils/100 WBC (Bld) 60.4 % Normal 38.0-82.0 [facility] Comment on above: Performed By: #### L [id number] ####[employer]: ROSALVA LOPEZ ([id number])[facility])[address] [place] [address] NRBC 0.0 /100 WBCs Normal 0.0-2.0 [facility] Comment on above: Performed By: #### L [id number] ####[employer]: ROSALVA LOPEZ ([id number])[facility])[address] [place] [address] Platelet mean volume (Bld) [Entitic vol] 10.7 fL Normal 9.0-12.7 [facility] Comment on above: Performed By: #### L [id number] ####[facility]: ROSALVA LOPEZ ([id number])[facility])[address] [place] [address] Platelets (Bld) [#/Vol] 147 10*3/uL Normal 140-440 [facility] Comment on above: Performed By: #### L [id number] ####[employer]: ROSALVA LOPEZ ([id number])[facility])[address] [place] [address] RBC (Bld) [#/Vol] 3.08 10*6/uL Low 3.80-5.20 [facility] Comment on above: Performed By: #### L [id number] ####[facility] [facility]: ROSALVA LOPEZ ([id number])[facility])[address] [place] [address] WBC (Bld) [#/Vol] 8.5 10*3/uL Normal 3.6-10.7 [facility] Comment on above: Performed By: #### L [id number] ####[employer]: ROSALVA LOPEZ ([id number])[facility])[address] [place] [address] CT CHEST ANGIOGRAM W AND/OR WO IV CONTRASTon 09-27-2023 CT CHEST ANGIOGRAM W AND/OR WO IV CONTRAST Normal [facility] CT HEAD WO IV CONTRASTon CT HEAD WO IV CONTRAST Normal [facility] Consulton 09-27-2023 Consult Normal [facility] Consult Normal [facility] Consult Normal [facility] HEPATIC FUNCTION PANELon Albumin [Mass/Vol] 3.1 g/dL Low 3.5-5.0 [facility] Comment on above: Performed By: #### L AB31, LAB20, KCY739, DYC286, LAB15 ####[employer]: ROSALVA LOPEZ ([id number])[facility])[address] [place] [address] ALP [Catalytic activity/Vol] 150 U/L High 38-126 [facility] Comment on above: Performed By: #### L AB31, LAB20, LKB037, ABX996, LAB15 ####[facility]: ROSALVA LOPEZ ([id number])[facility])[address] [place] [address] ALT [Catalytic activity/Vol] 100 U/L High 0-34 [facility] Comment on above: Performed By: #### L AB31, LAB20, EHS888, MHA714, LAB15 ####[employer] Medical: ROSALVA LOPEZ ([id number])[facility])[address] [place] [address] AST [Catalytic activity/Vol] 126 U/L High 15-46 [facility] Comment on above: Performed By: #### L AB31, LAB20, YHN777, DOY615, LAB15 ####Vp Medical: ROSALVA LOPEZ ([id number])[facility])[address] [place] [address] Bilirubin [Mass/Vol] 0.3 mg/dL Normal 0.2-1.3 [facility] Comment on above: Performed By: #### L AB31, LAB20, RUR468, HBA578, LAB15 ####Vp Medical: ROSALVA LOPEZ ([id number])[facility])[address] [place] [address] Bilirubin.indirect [Mass/Vol] 0.0 mg/dL Normal 0.0-0.3 [facility] Comment on above: Performed By: #### L AB31, LAB20, CYC164, FNG432, LAB15 ####Vp Medical: ROSALVA LOPEZ ([id number])[facility])[address] [place] [address] Protein [Mass/Vol] 5.7 g/dL Low 6.3-8.2 [facility] Comment on above: Performed By: #### L AB31, LAB20, XUW029, SVJ803, LAB15 ####Vp Medical: ROSALVA LOPEZ ([id number])[facility])[address] [place] [address] [place] IDNon 09-27-2023 IDN Normal [facility] LACTIC ACID WITH REFLEXon Lactate [Moles/Vol] 1.3 mmol/L Normal 0.7-2.0 [facility] Comment on above: Performed By: #### L [id number] ####Vp Medical: ROSALVA LOPEZ ([id number])[facility])[address] [place] [address] [place] LEGIONELLA AND STREPTOCOCCUS URINE ANTIGENon 09-27-2023 LEGIONELLA AND STREPTOCOCCUS URINE ANTIGEN Normal [facility] Comment on above: Performed By: #### L [id number] ####Vp Medical: ROSALVA LOPEZ ([id number])[facility])[address] [place] [address] [place] MAGNESIUMon 09-27-2023 Magnesium [Mass/Vol] 1.6 mg/dL Normal 1.6-2.3 [facility] Comment on above: Performed By: #### L AB31, LAB20, UUU473, DKB906, LAB15 ####[employer]p Medical: ROSALVA LOPEZ ([id number])[facility])[address] [place] [address] [place] MRSA BY PCRon 09-27-2023 MRSA BY PCR Normal [facility] Comment on above: Performed By: #### L [id number] ####Vp Medical: ROSALVA LOPEZ ([id number])[facility])[address] [place] [address] [place] PHENYTOIN TOTALon 09-27-2023 PHENYTOIN, TOTAL 11.8 ug/mL Normal 10.0-20.0 [facility] Comment on above: Performed By: #### L AB31, LAB20, CWF390, XAW190, LAB15 ####Vp Medical: ROSALVA LOPEZ ([id number])[facility])[address] [place] [address] [place] PHOSPHORUSon 09-27-2023 Phosphate [Mass/Vol] 3.9 mg/dL Normal 2.5-4.5 [facility] Comment on above: Order Comment: After replacement Performed By: #### L AB113 ####Vp Medical: ROSALVA LOPEZ ([id number])[facility])[address] [place] [address] Phosphate [Mass/Vol] 1.0 mg/dL Low 2.5-4.5 [facility] Comment on above: Performed By: #### L AB31, LAB20, XMK044, OCJ272, LAB15 ####[employer]p Medical: ROSALVA LOPEZ ([id number])[facility])[address] [place] [address] PNEUMONIA PCR PANELon 2023 PNEUMONIA PCR PANEL Normal [facility] Comment on above: Performed By: #### L [id number] ####Vp Medical: ROSALVA LOPEZ ([id number])[facility])[address] [place] [address] Progress Noteon 09-27-2023 Progress Note 09/27/23 0912 Wean Screen Arterial pH >7.30 and <7.50 Yes Normal [facility] Progress Note Normal [facility] Progress Note Normal [facility] RESPIRATORY CULTURE AND STAI Non 09-27-2023 RESPIRATORY CULTURE AND STAIN Normal [facility] Comment on above: Performed By: #### L [id number] ####Vp Medical: ROSALVA LOPEZ ([id number])[facility])[address] [place] [address] [place] RESPIRATORY PATHOGENS PANEL BY PCRon 09-27-2023 RESPIRATORY PATHOGENS PANEL BY PCR Normal [facility] Comment on above: Performed By: #### L [id number] ####Vp Medical: ROSALVA LOPEZ ([id number])[facility])[address] [place] [address] XR CHEST 1 VIEWon 09-27-2023 XR CHEST 1 VIEW Normal [facility] XR PELVIS 1-2 VIEWSon 2023 XR PELVIS 1-2 VIEWS Normal [facility] AMMONIAon 09-26-2023 Ammonia (P) [Moles/Vol] 19 umol/L Normal 9-30 [facility] Comment on above: Performed By: #### L AB47 ####Vp Medical: ROSALVA LOPEZ ([id number])[facility])[address] [place] [address] BASIC METABOLIC PANELon 09-03 Anion gap [Moles/Vol] 1 mmol/L Low 3-13 [facility] Comment on above: Performed By: #### L AB15, ARC899, LAB46, QHH333, MOC086, [id number], LAB31 ####[employer]: ROSALVA LOPEZ ([id number])[facility])[address] [place] [address] Calcium [Mass/Vol] 8.1 mg/dL Low 8.4-10.4 [facility] Comment on above: Performed By: #### L AB15, STX044, LAB46, ECQ799, NWN437, [id number], LAB31 ####[facility]p [facility]: ROSALVA LOPEZ ([id number])[facility])[address] [place] [address] Chloride [Moles/Vol] 101 mmol/L Normal 98-107 [facility] Comment on above: Performed By: #### L AB15, WBW610, LAB46, BVO126, CZE440, [id number], LAB31 ####Vp Medical: ROSALVA LOPEZ ([id number])[facility])[address] [place] [address] CO2 [Moles/Vol] 40 mmol/L High 22-30 [facility] Comment on above: Performed By: #### L AB15, ZAA390, LAB46, VWZ699, ATJ632, [id number], LAB31 ####Vp Medical: ROSALVA LOPEZ ([id number])[facility])[address] [place] [address] Creatinine [Mass/Vol] 0.50 mg/dL Low 0.52-1.04 [facility] Comment on above: Performed By: #### L AB15, ZLQ363, LAB46, KFY839, IVS051, [id number], LAB31 ####Vp Medical: ROSALVA LOPEZ ([id number])[facility])[address] [place] [address] GLOMERULAR FILTRATION RATE ML/MIN/1.73 SQ M.PREDICTED >90.0 Normal >60.0 [facility] Comment on above: Result Comment: Calc ulation based on the Chronic Kidney Disease Epidemiology Collaboration (CKD-EPI) equation refit without adjustment for race Performed By: #### L AB15, FVH356, LAB46, QUA161, TGW672, [id number], LAB31 ####Vp Medical: ROSALVA LOPEZ ([id number])[facility])[address] [place] [address] Glucose [Mass/Vol] 114 mg/dL High 70-100 [facility] Comment on above: Performed By: #### L AB15, JIL771, LAB46, LDZ254, HLU851, [id number], LAB31 ####Vp Medical: ROSALVA LOPEZ ([id number])[facility])[address] [place] [address] Potassium [Moles/Vol] 4.2 mmol/L Normal 3.5-5.1 [facility] Comment on above: Performed By: #### L AB15, KAW177, LAB46, NWI021, VYQ301, [id number], LAB31 ####Vp Medical: ROSALVA LOPEZ ([id number])[facility])[address] [place] [address] [place] Sodium [Moles/Vol] 142 mmol/L Normal 135-145 [facility] Comment on above: Performed By: #### L AB15, GJS826, LAB46, BLH748, RJS295, [id number], LAB31 ####Vp Medical: ROSALVA LOPEZ ([id number])[facility])[address] [place] [address] Urea nitrogen [Mass/Vol] 16 mg/dL Normal 7-17 [facility] Comment on above: Performed By: #### L AB15, ISC633, LAB46, ZDJ849, ISY763, [id number], LAB31 ####Vp Medical: ROSALVA LOPEZ ([id number])[facility] [place] [address] BLOOD GAS ARTERIALon 024 Base excess Calc (Bld) [Moles/Vol] 12.2 mmol/L High -3.0-3.0 [facility] Comment on above: Performed By: #### L AB76 ####Vp Medical: ROSALVA LOPEZ ([id number])[facility])[address] [place] [address] CO2 [Moles/Vol] 40.1 mmol/L High 23.0-27.0 [facility] Comment on above: Performed By: #### L AB76 ####Vp Medical: ROSALVA LOPEZ ([id number])[facility])[address] [place] [address] [place] HCO3 (Bld) [Moles/Vol] 38.3 mmol/L High 21.0-25.0 [facility] Comment on above: Performed By: #### L AB76 ####Vp Medical: ROSALVA LOPEZ ([id number])[facility])[address] [place] [address] Hemoglobin (Bld) [Mass/Vol] 10.4 g/dL Normal Screen Only [facility] Comment on above: Performed By: #### L AB76 ####Vp Medical: ROSALVA LOPEZ ([id number])[facility])[address] [place] [address] OXYGEN SATURATION (%) IN ARTERIAL BLOOD 91.0 % Low 95.0-100.0 [facility] Comment on above: Performed By: #### L AB76 ####Vp Medical: ROSALVA LOPEZ ([id number])[facility])[address] [place] [address] PCO2 ARTERIAL 58.4 mm Hg High >35.0-<45.0 [facility] Comment on above: Performed By: #### L AB76 ####Vp Medical: ROSALVA LOPEZ ([id number])[facility])[address] [place] [address] PH ARTERIAL 7.435 Normal 7.350-7.450 [facility] Comment on above: Performed By: #### L [id number] ####[facility]: ROSALVA LOPEZ ([id number])[facility])[address] [place] [address] PO2 ARTERIAL 52.6 mm Hg Low 80.0-100.0 [facility] Comment on above: Performed By: #### L [id number] ####[facility]: ROSALVA LOPEZ ([id number])[facility])[address] [place] [address] SOURCE OF OXYGEN 40% Oxygen Normal [facility] Comment on above: Performed By: #### L [id number] ####[facility]: ROSALVA LOPEZ ([id number])[facility])[address] [place] [address] CBC WITH AUTO DIFFERENTIALon 09-26-2023 Basophils (Bld) [#/Vol] 0.0 10*3/uL Normal 0.0-0.2 [facility] Comment on above: Performed By: #### L [id number] ####[facility]: ROSALVA LOPEZ ([id number])[facility])[address] [place] [address] Basophils/100 WBC (Bld) 0.2 % Normal 0.0-2.0 [facility] Comment on above: Performed By: #### L [id number] ####[facility]: ROSALVA LOPEZ ([id number])[facility])[address] [place] [address] Eosinophils (Bld) [#/Vol] 0.2 10*3/uL Normal 0.0-0.5 [facility] Comment on above: Performed By: #### L [id number] ####[facility]: ROSALVA LOPEZ ([id number])[facility])[address] [place] [address] Eosinophils/100 WBC (Bld) 1.8 % Normal 0.0-6.0 [facility] Comment on above: Performed By: #### L [id number] ####[facility]: ROSALVA LOPEZ ([id number])[address] Erythrocyte distribution width (RBC) [Ratio] 12.8 % Normal 11.5-15.0 [facility] Comment on above: Performed By: #### L [id number] ####[facility]: ROSALVA LOPEZ ([id number])[address] Hematocrit (Bld) [Volume fraction] 31.5 % Low 35.0-47.0 [facility] Comment on above: Performed By: #### L [id number] ####[facility]: ROSALVA LOPEZ ([id number])[address] Hemoglobin (Bld) [Mass/Vol] 9.1 g/dL Low 11.7-16.0 [facility] Comment on above: Performed By: #### L [id number] ####[facility]: ROSALVA LOPEZ ([id number])[address] IMMATURE GRANS % 0.4 % Normal 0.0-2.0 [facility] Comment on above: Performed By: #### L [id number] ####[facility]: ROSALVA LOPEZ ([id number])[address] [place] [address] [place] IMMATURE GRANS ABSOLUTE 0.0 10*3/uL Normal <0.1 [facility] Comment on above: Performed By: #### L [id number] ####[facility]: ROSALVA LOPEZ ([id number])[facility])[address] [place] [address] Lymphocytes (Bld) [#/Vol] 2.0 10*3/uL Normal 1.0-4.3 [facility] Comment on above: Performed By: #### L [id number] ####[facility]: ROSALVA LOPEZ ([id number])[address] Lymphocytes/100 WBC (Bld) 23.8 % Normal 15.0-45.0 [facility] Comment on above: Performed By: #### L [id number] ####[facility]: ROSALVA LOPEZ ([id number])[facility])[address] [place] [address] MCH (RBC) [Entitic mass] 28.2 pg Normal 26.0-34.0 [facility] Comment on above: Performed By: #### L [id number] ####[facility]: ROSALVA LOPEZ ([id number])[address] MCHC 28.9 % Low 30.5-36.0 [facility] Comment on above: Performed By: #### L [id number] ####[facility]: ROSALVA LOPEZ ([id number])[facility])[address] [place] [address] MCV (RBC) [Entitic vol] 97.5 fL Normal 77.0-99.0 [facility] Comment on above: Performed By: #### L [id number] ####[facility]: ROSALVA LOPEZ ([id number])[facility])[address] [place] [address] Monocytes (Bld) [#/Vol] 0.7 10*3/uL Normal 0.0-0.9 [facility] Comment on above: Performed By: #### L [id number] ####[facility]: ROSALVA LOPEZ ([id number])[facility])[address] [place] [address] Monocytes/100 WBC (Bld) 8.2 % Normal 5.0-13.0 [facility] Comment on above: Performed By: #### L [id number] ####[facility]: ROSALVA LOPEZ ([id number])[facility])[address] [place] [address] NEUTROPHILS ABSOLUTE 5.5 10*3/uL Normal 1.8-7.5 [facility] Comment on above: Performed By: #### L [id number] ####[facility]: ROSALVA LOPEZ ([id number])[facility])[address] [place] [address] Neutrophils/100 WBC (Bld) 65.6 % Normal 38.0-82.0 [facility] Comment on above: Performed By: #### L [id number] ####[facility]: ROSALVA LOPEZ ([id number])[facility])[address] [place] [address] NRBC 0.0 /100 WBCs Normal 0.0-2.0 [facility] Comment on above: Performed By: #### L [id number] ####[facility]: ROSALVA LOPEZ ([id number])[facility])[address] [place] [address] Platelet mean volume (Bld) [Entitic vol] 9.9 fL Normal 9.0-12.7 [facility] Comment on above: Performed By: #### L [id number] ####[facility]: ROSALVA LOPEZ ([id number])[facility])[address] [place] [address] Platelets (Bld) [#/Vol] 135 10*3/uL Low 140-440 [facility] Comment on above: Performed By: #### L [id number] ####[facility]: ROSALVA LOPEZ ([id number])[facility])[address] [place] [address] RBC (Bld) [#/Vol] 3.23 10*6/uL Low 3.80-5.20 [facility] Comment on above: Performed By: #### L [id number] ####[facility]: ROSALVA LOPEZ ([id number])[facility])[address] [place] [address] WBC (Bld) [#/Vol] 8.3 10*3/uL Normal 3.6-10.7 [facility] Comment on above: Performed By: #### L [id number] ####[facility]: ROSALVA LOPEZ ([id number])[facility])[address] [place] [address] COMPLETE URINALYSISon 2023 BACTERIA (#/HPF) IN URINE Few Abnormal Negative [facility] Comment on above: Performed By: #### L [id number] ####[facility]: ROSALVA LOPEZ ([id number])[facility])[address] [place] [address] BILIRUBIN, TOTAL PRESENCE IN URINE Negative Normal Negative [facility] Comment on above: Performed By: #### L [id number] ####[facility]: ROSALVA LOPEZ ([id number])[facility])[address] [place] [address] Clarity (U) Clear Normal Clear [facility] Comment on above: Performed By: #### L [id number] ####[facility]: ROSALVA LOPEZ ([id number])[facility])[address] [place] [address] Color (U) Yellow Normal Lt. Yellow [facility] Comment on above: Performed By: #### L [id number] ####[facility]: ROSALVA LOPEZ ([id number])[facility])[address] [place] [address] GLUCOSE (MG/DL) IN URINE Normal Normal Normal (<70) [facility] Comment on above: Performed By: #### L [id number] ####[facility]: ROSALVA LOPEZ ([id number])[facility])[address] [place] [address] HEMOGLOBIN PRESENCE IN URINE Negative Normal Negative [facility] Comment on above: Performed By: #### L [id number] ####[facility]: ROSALVA LOPEZ ([id number])[facility])[address] [place] [address] HYALINE CASTS (#/LPF) IN URINE SEDIMENT BY MICROSCOPY 0-2 Abnormal Negative [facility] Comment on above: Performed By: #### L [id number] ####[facility]: ROSALVA LOPEZ ([id number])[facility])[address] [place] [address] Ketones Ql (U) Negative Normal Negative [facility] Comment on above: Performed By: #### L [id number] ####[facility]: ROSALVA LOPEZ ([id number])[facility])[address] [place] [address] LEUKOCYTE ESTERASE PRESENCE IN URINE BY TEST STRIP Negative Normal Negative [facility] Comment on above: Performed By: #### L [id number] ####[facility]: ROSALVA LOPEZ ([id number])[facility])[address] [place] [address] [place] MUCUS (#/LPF) IN URINE SEDIMENT Few Normal Negative [facility] Comment on above: Performed By: #### L [id number] ####[facility]: ROSALVA LOPEZ ([id number])[facility])[address] [place] [address] NITRITE PRESENCE IN URINE Negative Normal Negative [facility] Comment on above: Performed By: #### L [id number] ####[facility]: ROSALVA LOPEZ ([id number])[facility])[address] [place] [address] pH (U) 7.0 [pH] Normal 5.0-8.0 [facility] Comment on above: Performed By: #### L [id number] ####[facility]: ROSALVA LOPEZ ([id number])[facility])[address] [place] [address] Protein (U) [Mass/Vol] 20 mg/dL Abnormal Negative [facility] Comment on above: Performed By: #### L [id number] ####[facility]: ROSALVA LOPEZ ([id number])[facility])[address] [place] [address] [place] RBC (#/HPF) IN URINE SEDIMENT 6-10 Abnormal 0-2 [facility] Comment on above: Performed By: #### L [id number] ####[facility]: ROSALVA LOPEZ ([id number])[facility])[address] [place] [address] Specific gravity (U) [Rel density] 1.024 Normal 1.005-1.030 [facility] Comment on above: Performed By: #### L [id number] ####[facility]: ROSALVA LOPEZ ([id number])[facility])[address] [place] [address] SQUAMOUS EPITHELIAL CELLS (#/HPF) IN URINE SEDIMENT 0-2 Normal 3-5 [facility] Comment on above: Performed By: #### L [id number] ####[facility]: ROSALVA LOPEZ ([id number])[facility])[address] [place] [address] UROBILINOGEN (MG/DL) IN URINE Normal Normal Normal (0-1) [facility] Comment on above: Performed By: #### L [id number] ####[facility]: ROSALVA LOPEZ ([id number])[facility])[address] [place] [address] WBC (LEUKOCYTE) (#/HPF) IN URINE SEDIMENT 3-5 Normal 0-5 [facility] Comment on above: Performed By: #### L [id number] ####[facility]: ROSALVA LOPEZ ([id number])[facility])[address] [place] [address] Consulton 09-26-2023 Consult Normal [facility] ETHANOLon 09-26-2023 ETHANOL IN SER/PLAS <0.010 Normal 0.000-0.010 [facility] Comment on above: Result Comment: RAMY Champion COMMENTS:NOTE: This result is for medical treatment only. Analysis performed using non-forensic procedures. Performed By: #### L AB15, [id number], LAB46, [id number], [id number], [id number], LAB31 ####[facility]: ROSALVA LOPEZ ([id number])[address] ETHYL GLUCURONIDE SCREEN, UR INEon 09-26-2023 ETHYL GLUCURONIDE, URINE Negative Normal Negative [facility] Comment on above: Result Comment: RAMY Champion COMMENTS:Ethyl Glucuronide has been screened by Immunoassay at a 500 ng/mL threshold. POSITIVE results are not confirmed by a more specific alternative method unless requested. If confirmation is needed, request confirmation under separate order.NOTE: These results are for medical treatment only. Analysis performed using non-forensic procedures.This test has not been cleared by the [place] Food and Drug Administration (FDA). The FDA has determined that such clearance or approval is not necessary. The performance characteristics have been determined by the clinical laboratories of [facility]. Performed By: #### L [id number], [id number] ####[facility]: ROSALVA LOPEZ ([id number])[address] LACTIC ACID WITH REFLEXon Lactate [Moles/Vol] 1.2 mmol/L Normal 0.7-2.0 [facility] Comment on above: Performed By: #### L [id number] ####[facility]: ROSALVA LOPEZ ([id number])[address] MAGNESIUMon 09-26-2023 Magnesium [Mass/Vol] 1.7 mg/dL Normal 1.6-2.3 [facility] Comment on above: Performed By: #### L AB15, [id number], LAB46, RWU316, [id number], [id number], LAB31 ####[facility]: ROSALVA [id number])[facility])[address] [place] [address] MEDICATION ASSISTED TREATMEN T PANELon 09-26-2023 Amphetamines Ql (U) Negative Normal Negative [facility] Comment on above: Performed By: #### L [id number], [id number] ####[facility]: ROSALVA LOPEZ ([id number])[facility])[address] [place] [address] BARBITURATES Negative Normal Negative [facility] Comment on above: Performed By: #### L [id number], [id number] ####[facility]: ROSALVA LOPEZ ([id number])[facility])[address] [place] [address] Benzodiazepines Ql (U) Positive Normal Negative [facility] Comment on above: Performed By: #### L [id number], [id number] ####[facility]: ROSALVA LOPEZ ([id number])[facility])[address] [place] [address] BUPRENORPHINE SCREEN Negative Normal Negative [facility] Comment on above: Performed By: #### L [id number], [id number] ####[facility]: ROSALVA LOPEZ ([id number])[facility])[address] [place] [address] Cocaine Ql (U) Negative Normal Negative [facility] Comment on above: Performed By: #### L [id number], [id number] ####[facility]: ROSALVA LOPEZ ([id number])[facility])[address] [place] [address] ETHANOL-ETOHO Negative Normal Negative [facility] Comment on above: Result Comment: RAMY Champion COMMENTS:The expected value for the drugs listed above is Negative.The following drugs or drug groups have been screened for by Immunoassay at the following thresholds:Amphetamine class(1000ng/mL)Barbituates(200ng/mL)Benzodiazepines(200ng/mL) Cocaine(300ng/mL)Ethanol (50 ng/mL)Methadone(300ng/mL)Opiates(300ng/mL)Oxycodone(100ng/mL)P CP(25ng/mL)Buprenorphine(5ng/mL)THC(50ng/mL)Fentanyl(1ng/mL)Po sitive results are NOT confirmed by a more specific alternative method unless requested. If confirmation is needed, request confirmation under separate order.NOTE: These results are for medical treatment only. Analysis performed using non-forensic procedures. Performed By: #### L [id number], [id number] ####[facility]: ROSALVA LOPEZ ([id number])[facility])[address] [place] [address] FENTANYL Positive Normal Negative [facility] Comment on above: Performed By: #### L [id number], [id number] ####[facility]: ROSALVA LOPEZ ([id number])[facility])[address] [place] [address] Methadone Ql (U) Negative Normal Negative [facility] Comment on above: Performed By: #### L [id number], [id number] ####[facility]: ROSALVA LOPEZ ([id number])[facility] [place] [address] Opiates Ql (U) Negative Normal Negative [facility] Comment on above: Performed By: #### L [id number], [id number] ####[facility]: ROSALVA LOPEZ ([id number])[facility])[address] [place] [address] OXYCODONE/OXYMORPHONE Negative Normal Negative [facility] Comment on above: Performed By: #### L [id number], [id number] ####[facility]: ROSALVA LOPEZ ([id number])[facility])[address] [place] [address] PCP Negative Normal Negative [facility] Comment on above: Performed By: #### L [id number], [id number] ####[facility]: ROSALVA LOPEZ ([id number])[facility])[address] [place] [address] THC-MTTHC Negative Normal Negative [facility] Comment on above: Performed By: #### L [id number], [id number] ####[facility]: ROSALVA LOEPZ ([id number])[facility])[address] [place] [address] NT PRO BNPon 09-26-2023 Natriuretic peptide B (Bld) [Mass/Vol] 1420 pg/mL High <20-300 [facility] Comment on above: Performed By: #### L AB15, [id number], LAB46, AYA086, [id number], [id number], LAB31 ####[facility]: ROSALVA LOPEZ ([id number])[facility])[address] [place] [address] PHENYTOIN TOTALon 09-26-2023 PHENYTOIN, TOTAL 12.0 ug/mL Normal 10.0-20.0 [facility] Comment on above: Performed By: #### L AB15, ALC233, LAB46, XGI408, SJA542, [id number], LAB31 ####[facility]: ROSALVA LOPEZ ([id number])[facility])[address] [place] [address] PHOSPHORUSon 09-26-2023 Phosphate [Mass/Vol] 0.9 mg/dL Low 2.5-4.5 [facility] Comment on above: Performed By: #### L AB15, JEH403, LAB46, UHY074, COW498, [id number], LAB31 ####[facility]: ROSALVA LOPEZ ([id number])[facility])[address] [place] [address] PROCALCITONIN TESTon 024 PROCALCITONIN 0.03 ng/mL Normal 0.00-0.09 [facility] Comment on above: Result Comment: ORDE R COMMENTS:PCT <0.50 = Low risk of severe sepsis and/or septic shock.PCT >2.00 = High risk of severe sepsis and/or septic shock. Performed By: #### L [id number] ####[facility]: ROSALVA LOPEZ ([id number])[address] PROCALCITONIN 0.02 ng/mL Normal 0.00-0.09 [facility] Comment on above: Result Comment: ORDE R COMMENTS:PCT <0.50 = Low risk of severe sepsis and/or septic shock.PCT >2.00 = High risk of severe sepsis and/or septic shock. Performed By: #### L [id number] ####[facility]: ROSALVA LOPEZ ([id number])[facility])[address] [place] [address] Progress Noteon 09-26-2023 Progress Note Normal [facility] TROPONIN Ion 09-26-2023 Troponin I.cardiac [Mass/Vol] 0.018 ng/mL Normal <0.034 [facility] Comment on above: Result Comment: ORDE R COMMENTS:Patients with high levels of Biotin oral intake (ie >5 mg/day) may have falsely decreased Troponin levels. Performed By: #### L [id number] ####[facility]: ROSALVA LOPEZ ([id number])[address] Troponin I.cardiac [Mass/Vol] 0.019 ng/mL Normal <0.034 [facility] Comment on above: Result Comment: ORDE R COMMENTS:Patients with high levels of Biotin oral intake (ie >5 mg/day) may have falsely decreased Troponin levels. Performed By: #### L [id number] ####[facility]: ROSALVA LOPEZ ([id number])[facility])[address] [place] [address] TROPONIN, WITH SERIAL REFLEX on 09-26-2023 Troponin I.cardiac [Mass/Vol] 0.020 ng/mL Normal <0.034 [facility] Comment on above: Result Comment: ORDE R COMMENTS:Patients with high levels of Biotin oral intake (ie >5 mg/day) may have falsely decreased Troponin levels. Performed By: #### L AB15, [id number], LAB46, [id number], [id number], [id number], LAB31 ####[facility]: ROSALVA [id number])[facility] ([facility])[address] XR ABDOMEN 1 VIEWon 09-26-19 24 XR ABDOMEN 1 VIEW Normal [facility] XR CHEST 1 VIEWon 09-26-2023 XR CHEST 1 VIEW Normal [facility] URINE CULTUREon 09-25-2023 Bacteria identified Cx Nom (U) <10,000 CFU/ml Normal urogenital ailyn [facility] TOX SCREEN ROUT URon 024 Amphetamines Confirm (U) [Mass/Vol] Negative Negative [facility] Barbiturates Urine Negative Negative [facility] Benzodiazepines Urine Negative Negative [facility] Cannabinoids Screen Ql (U) Negative Negative [facility] Cocaine Ql (U) Negative Negative [facility] Ethanol (U) [Mass/Vol] <11 mg/dL Cl [facility] Opiates Screen Ql (U) Negative Negative [facility] oxyCODONE cutoff Screen (U) [Mass/Vol] Negative Negative [facility] Phencyclidine Ql (U) Negative Negative [facility] Bacteria Ur Culton Bacteria identified Cx Nom (U) ORGANISM ID: 1 <10,000 CFU/ml Normal urogenital ailyn Normal [facility] Comment on above: Performed By: #### 6 30-4 ####[facility] LABCLIA [id number] [place] [address] [place] CNOVon 09-23-2023 CNOV Office Visit (INTMWS ) LUIZA MAY ([id number]) 1955 F Date Time Provider Department 09/23/23 1:40 PM JOANIE BENITEZ INTMWS During your visit today, we recorded the following information about you: Pulse Respiration Blood pressure Weight 84/minute 14/minute 112/62 63.7 kg Joanie Benitez PA-C 09/25/2023 12:43 PM Signed CC: Patient presents with: Follow Up: Recent [...] it was advised that [place] return to [place] for [place]-term savuim-as-ancsu she did not do. Past medical history prior to most recent episode is significant for fall with head trauma, ultimately requiring right craniotomy for subdural hematoma evacuation (02/08/2022) at [facility]. On CPAP for TIO, states she [...] STEREOTACTIC CORE BIOPSY 10/25/07 lsft ALLERGIES Entex [Phenylephrine-Guaifene sin] and Tetanus Vaccines And Toxoid MEDICATIONS folic [...] Cancer Mother R/T LUNG CANCER Heart Father PR Cancer Sister LUNG Social History Tobacco Use [...] alert Pysch: affect is anxious, somewhat irritable (more content not included)... Normal [facility] TOX SCREEN ROUT URon 024 Amphetamines Confirm (U) [Mass/Vol] Negative Normal Negative [facility] Comment on above: Order Comment: Speci men Type: URINE SPECIMENOrdering Facility: [facility] Address: [address] [place] [address] Result Comment: Cuto ff threshold at 1000 ng/mL. Performed By: #### U TOX2 ####[facility] LABCLIA [id number] [place] [address] [place] BARBITURATES, URINE Negative Normal Negative [facility] Comment on above: Order Comment: Speci men Type: URINE SPECIMENOrdering Facility: [facility] Address: [address] [place] [address] Result Comment: Cuto ff threshold at 200 ng/mL. Performed By: #### U TOX2 ####[facility] LABCLIA [id number] [place] [address] [place] BENZODIAZEPINES, UR Negative Normal Negative [facility] Comment on above: Order Comment: Speci men Type: URINE SPECIMENOrdering Facility: [facility] Address: [address] [place] [address] Result Comment: Cuto ff threshold at 200 ng/mL. Performed By: #### U TOX2 ####[facility] LABCLIA [id number] [place] [address] [place] Cannabinoids Screen Ql (U) Negative Normal Negative [facility] Comment on above: Order Comment: Speci men Type: URINE SPECIMENOrdering Facility: [facility] Address: [address] [place] [address] Result Comment: Cuto ff threshold at 50 ng/mL. Performed By: #### U TOX2 ####[facility]CLIA [id number] [place] [address] [place] Cocaine Ql (U) Negative Normal Negative [facility] Comment on above: Order Comment: Speci men Type: URINE SPECIMENOrdering Facility: [facility] Address: [address] [place] [address] Result Comment: Cuto ff threshold at 300 ng/mL. Performed By: #### U TOX2 ####[facility] LABCLIA [id number] [place] [address] [place] Ethanol (U) [Mass/Vol] <11 Normal <11 [facility] Comment on above: Order Comment: Speci men Type: URINE SPECIMENOrdering Facility: [facility] Address: [address] [place] [address] Performed By: #### U TOX2 ####[facility] LABIA [id number] [place] [address] [place] Opiates Screen Ql (U) Negative Normal Negative [facility] Comment on above: Order Comment: Speci men Type: URINE SPECIMENOrdering Facility: [facility] Address: [address] [place] [address] Result Comment: Cuto ff threshold at 300 ng/mL. Performed By: #### U TOX2 ####[facility] LABIA [id number] [place] [address] [place] oxyCODONE cutoff Screen (U) [Mass/Vol] Negative Normal Negative [facility] Comment on above: Order Comment: Speci men Type: URINE SPECIMENOrdering Facility: [facility] Address: [address] [place] [address] Result Comment: Cuto ff threshold at 100 ng/mL. Performed By: #### U TOX2 ####[facility] LABIA [id number] [place] [address] [place] Phencyclidine Ql (U) Negative Normal Negative [facility] Comment on above: Order Comment: Speci men Type: URINE SPECIMENOrdering Facility: [facility] Address: [address] [place] [address] Result Comment: Cuto ff threshold at 25 ng/mL. Performed By: #### U TOX2 ####[facility] LABCLIA [id number] [facility] [id number] [address] [place] UA DIP, URINE (POC)on 2023 BILIRUBIN UA (POCT) Negative Negative [facility] CLARITY UA (POCT) Clear [facility] COLOR UA (POCT) Yellow [facility] GLUCOSE UA (POCT) Negative Negative mg/dL [facility] Hemoglobin Ql (U) Trace-intact Abnormal Negative [facility] KETONE UA (POCT) Negative Negative mg/dL [facility] LEUKOCYTES UA (POCT) Negative Negative [facility] NITRITE UA (POCT) Negative Negative [facility] PH UA (POCT) 7.0 4.5 - 8.0 [facility] Protein Ql (U) Negative Negative mg/dL [facility] SPECIFIC GRAVITY UA (POCT) 1.015 1.005 - 1.030 [facility] UROBILINOGEN UA (POCT) 0.2 E.U./dL Delia l E.U./dL [facility] LUI[facility] MYA ([id number]) 1955 F Date Time Provider Department 09/21/23 MARYAM FRANCO INTWS During your visit today, we recorded the following information about you: Gisell Mendoza, FINESSE 09/21/2023 4:17 PM Signed Pharmacy phones for refill(s): Requested Prescriptions Pending Prescriptions Disp Refills zolpidem (AMBIEN) 10 mg 30 tablet 0 Sig: Take 1 tablet by mouth at bedtime as needed (insomnia) for up to 90 days. Date of last office visit in primary care: 08/17/2023 Date of next office visit in primary care:(to be scheduled) Gisell Mendoza RN. Toby Edilberto, PUBLIC WORKS MANAGER.CITY DISPATCHER 09/21/2023 4:30 PM Signed Routing to provider that she has seen in the past, no show for 08/31 appt. Tao Meyers RN 09/22/2023 10:04 AM Signed Pt's daughter Ameena calling in regarding refill [...] well as discuss the Ambien refill request. Francesca Nayak MA 09/22/2023 1:27 PM Signed Pt scheduled for appt tomorrow 09/22 at 1:40 PM. Francesca Nayak MA Allergies As of Date: 09/21/2023 Noted Allergy Reaction ENTEX (PHENYLEPHRINE-GUAIFENE SIN) 04/22/2005 5 - Intolerance TETANUS VACCINES AND TOXOID 04/22/2005 7 - Swelling Date Reviewed: 08/17/2023 Reviewed by: Barry De La Cruz MA - Fully Assessed Reason for Visit: Refill Request [94] Missed Appointment [1304] Visit Diagnosis:Insomnia, unspecified type [G47.00] Prescriptions as of 09/22/2023 - folic acid 1 mg tablet Take [...] 1 tablet by mouth once daily. - DULoxetine (CYMBALTA) 30 mg capsule Take 1 capsule by mouth once daily. - metoprolol succinate [...] 2.5 mg via nebulizer as directed. - zolpidem (AMBIEN) 10 mg Take 1 tablet by mouth at bedtime as needed (insomnia) for up to 90 days. - furosemide (LASIX) 20 mg tablet Take 1 tablet by mouth two times a day. - ARIPiprazole (ABILIFY) 2 mg tablet Take 1 tablet by mouth once daily. - rOPINIRole (REQUIP) 1 mg tablet Take 1 tablet by mouth daily at bedtime. - Cholecalciferol, Vitamin D3, 25 mcg (1,000 unit) cap Take 1 capsule by mouth once daily. - phenytoin (DILANTIN) 125 mg/5 mL susp Take 4 mL by mouth every 8 hours. - hydrOXYzine pamoate (VISTARIL) 25 mg capsule Take 1 capsule by mouth three times a day as needed for anxiety. - albuterol HFA (PROAIR HFA) 90 mcg/actuation inhaler Inhale 2 Puffs as instructed every 6 hours as needed. - escitalopram oxalate (LEXAPRO) 20 mg tablet Take 1 tablet by mouth once daily. - MEDICAL SUPPLY Portable oxygen cylinders Meds Comments as of 08/11/2023: 08/11/23 The medications are managed by this patient by: PATIENT Seth Chawla [facility] Problem List As Of Date 09/21/2023 Noted Resolved COUGH [R05.9] 04/01/2006 05/03/2006 OBST [...] [S06.5XAA] 08/05/2023 Fall [W19.XXXA] 08/06/2023 Scalp laceration, ini (more content not included)... Normal [facility] CBC W Auto Differential pane l (Bld)on 08-17-2023 Basophils (Bld) [#/Vol] 0.07 10*3/uL <0.11 k/uL [facility] Basophils/100 WBC (Bld) 1.0 % [facility] Differential cell count method Nom (Bld) Auto [facility] Eosinophils (Bld) [#/Vol] 0.32 10*3/uL <0.46 k/uL [facility] Eosinophils/100 WBC (Bld) 4.6 % [facility] Erythrocyte distribution width (RBC) [Ratio] 13.4 % 11.5 - 15.0 % [facility] Hematocrit (Bld) [Volume fraction] 37.7 % 36.0 - 46.0 % [facility] Hemoglobin (Bld) [Mass/Vol] 11.1 g/dL Low 11.5 - 15.5 g/dL [facility] Immature granulocytes (Bld) [#/Vol] 0.03 10*3/uL <0.10 k/uL [facility] Immature granulocytes/100 WBC (Bld) 0.4 % [facility] Lymphocytes (Bld) [#/Vol] 2.32 10*3/uL 1.00 - 4.00 k/uL [facility] Lymphocytes/100 WBC (Bld) 33.5 % [facility] MCH (RBC) [Entitic mass] 29.0 pg 26.0 - 34.[address] [facility] MCHC (RBC) [Mass/Vol] 29.4 g/dL Low 30.5 - 36.0 g/dL [facility] MCV (RBC) [Entitic vol] 98.4 fL 80.0 - 100.[address] [facility] Monocytes (Bld) [#/Vol] 1.02 10*3/uL High <0.87 k/uL [facility] Monocytes/100 WBC (Bld) 14.7 % [facility] Neutrophils (Bld) [#/Vol] 3.16 10*3/uL 1.45 - 7.50 k/uL [facility] Neutrophils/100 WBC (Bld) 45.8 % [facility] Nucleated RBC (Bld) [#/Vol] <0.01 k/uL [facility] Nucleated RBC/100 WBC (Bld) [Ratio] 0.0 /[address] [facility] Platelet mean volume (Bld) [Entitic vol] 10.9 fL 9.0 - 12.[address] [facility] Platelets (Bld) [#/Vol] 230 10*3/uL 150 - 400 k/uL [facility] RBC (Bld) [#/Vol] 3.83 10*6/uL Low 3.90 - 5.2 0 m/uL [facility] WBC (Bld) [#/Vol] 6.92 10*3/uL 3.70 - 11. 00 k/uL [facility] Basophils (Bld) [#/Vol] 0.07 10*3/uL Normal <0.11 [facility] Comment on above: Order Comment: Speci men Type: BLOOD SPECIMENOrdering Facility: [facility] Address: [address] [place] [address] Performed By: #### 5 7021-8 ####[facility] LABCLIA [id number] [place] [address] [place] Basophils/100 WBC (Bld) 1.0 % Normal [facility] Comment on above: Order Comment: Speci men Type: BLOOD SPECIMENOrdering Facility: [facility] Address: [address] [place] [address] Performed By: #### 5 7021-8 ####[facility] LABCLIA [id number] [place] [address] [place] Differential cell count method Nom (Bld) Auto Normal [facility] Comment on above: Order Comment: Speci men Type: BLOOD SPECIMENOrdering Facility: [facility] Address: [address] [place] [address] Performed By: #### 5 7021-8 ####[facility] LABCLIA [id number] [place] [address] [place] Eosinophils (Bld) [#/Vol] 0.32 10*3/uL Normal <0.46 [facility] Comment on above: Order Comment: Speci men Type: BLOOD SPECIMENOrdering Facility: [facility] Address: [address] [place] [address] Performed By: #### 5 7021-8 ####[facility] LABCLIA [id number] [place] [address] [place] Eosinophils/100 WBC (Bld) 4.6 % Normal [facility] Comment on above: Order Comment: Speci men Type: BLOOD SPECIMENOrdering Facility: [facility] Address: [address] [place] [address] Performed By: #### 5 7021-8 ####[facility] LABCLIA [id number] [place] [address] [place] Erythrocyte distribution width (RBC) [Ratio] 13.4 % Normal 11.5-15.0 [facility] Comment on above: Order Comment: Speci men Type: BLOOD SPECIMENOrdering Facility: [facility] Address: [address] [place] [address] Performed By: #### 5 7021-8 ####[facility] LABCLIA [id number] [place] [address] [place] Hematocrit (Bld) [Volume fraction] 37.7 % Normal 36.0-46.0 [facility] Comment on above: Order Comment: Speci men Type: BLOOD SPECIMENOrdering Facility: [facility] Address: [address] [place] [address] Performed By: #### 5 7021-8 ####[facility] LABCLIA [id number] [place] [address] [place] Hemoglobin (Bld) [Mass/Vol] 11.1 g/dL Low 11.5-15.5 [facility] Comment on above: Order Comment: Speci men Type: BLOOD SPECIMENOrdering Facility: [facility] Address: [address] [place] [address] Performed By: #### 5 7021-8 ####[facility] LABCLIA [id number] [place] [address] [place] Immature granulocytes (Bld) [#/Vol] 0.03 10*3/uL Normal <0.10 [facility] Comment on above: Order Comment: Speci men Type: BLOOD SPECIMENOrdering Facility: [facility] Address: [address] [place] [address] Performed By: #### 5 7021-8 ####[facility] LABCLIA [id number] [place] [address] [place] Immature granulocytes/100 WBC (Bld) 0.4 % Normal [facility] Comment on above: Order Comment: Speci men Type: BLOOD SPECIMENOrdering Facility: [facility] Address: [address] [place] [address] Performed By: #### 5 7021-8 ####[facility] LABCLIA [id number] [place] [address] [place] Lymphocytes (Bld) [#/Vol] 2.32 10*3/uL Normal 1.00-4.00 [facility] Comment on above: Order Comment: Speci men Type: BLOOD SPECIMENOrdering Facility: [facility] Address: [address] [place] [address] Performed By: #### 5 7021-8 ####[facility] LABIA [id number] [place] [address] [place] Lymphocytes/100 WBC (Bld) 33.5 % Normal [facility] Comment on above: Order Comment: Speci men Type: BLOOD SPECIMENOrdering Facility: [facility] Address: [address] [place] [address] Performed By: #### 5 7021-8 ####[facility] LABIA [id number] [place] [address] [place] MCH (RBC) [Entitic mass] 29.0 pg Normal 26.0-34.0 [facility] Comment on above: Order Comment: Speci men Type: BLOOD SPECIMENOrdering Facility: [facility] Address: [address] [place] [address] Performed By: #### 5 7021-8 ####[facility] LABIA [id number] [place] [address] [place] MCHC (RBC) [Mass/Vol] 29.4 g/dL Low 30.5-36.0 [facility] Comment on above: Order Comment: Speci men Type: BLOOD SPECIMENOrdering Facility: [facility] Address: [address] [place] [address] Performed By: #### 5 7021-8 ####[facility] LABCLIA [id number] [place] [address] [place] MCV (RBC) [Entitic vol] 98.4 fL Normal 80.0-100.0 C [facility] Comment on above: Order Comment: Speci men Type: BLOOD SPECIMENOrdering Facility: [facility] Address: [address] [place] [address] Performed By: #### 5 7021-8 ####[facility] LABCLIA [id number] [place] [address] [place] Monocytes (Bld) [#/Vol] 1.02 10*3/uL High <0.87 [facility] Comment on above: Order Comment: Speci men Type: BLOOD SPECIMENOrdering Facility: [facility] Address: [address] [place] [address] Performed By: #### 5 7021-8 ####[facility] LABIA [id number] [place] [address] [place] Monocytes/100 WBC (Bld) 14.7 % Normal [facility] Comment on above: Order Comment: Speci men Type: BLOOD SPECIMENOrdering Facility: [facility] Address: [address] [place] [address] Performed By: #### 5 7021-8 ####[facility] LABIA [id number] [place] [address] [place] Neutrophils (Bld) [#/Vol] 3.16 10*3/uL Normal 1.45-7.50 [facility] Comment on above: Order Comment: Speci men Type: BLOOD SPECIMENOrdering Facility: [facility] Address: [address] [place] [address] Performed By: #### 5 7021-8 ####[facility] LABCLIA [id number] [place] [address] [place] Neutrophils/100 WBC (Bld) 45.8 % Normal [facility] Comment on above: Order Comment: Speci men Type: BLOOD SPECIMENOrdering Facility: [facility] Address: [address] [place] [address] Performed By: #### 5 7021-8 ####[facility] LABIA [id number] [place] [id number] [place] Nucleated RBC (Bld) [#/Vol] 10*3/uL Normal <0.01 [facility] Comment on above: Order Comment: Speci men Type: BLOOD SPECIMENOrdering Facility: [facility] Address: [address] [place] [address] Performed By: #### 5 7021-8 ####[facility] LABIA [id number] [place] [address] [place] Nucleated RBC/100 WBC (Bld) [Ratio] 0.0 /100 WBC Normal [facility] Comment on above: Order Comment: Speci men Type: BLOOD SPECIMENOrdering Facility: [facility] Address: [address] [place] [address] Performed By: #### 5 7021-8 ####[facility] LABIA [id number] [place] [address] [place] Platelet mean volume (Bld) [Entitic vol] 10.9 fL Normal 9.0-12.7 [facility] Comment on above: Order Comment: Speci men Type: BLOOD SPECIMENOrdering Facility: [facility] Address: [address] [place] [address] Performed By: #### 5 7021-8 ####[facility] LABIA [id number] [place] [address] [place] Platelets (Bld) [#/Vol] 230 10*3/uL Normal 150-400 [facility] Comment on above: Order Comment: Speci men Type: BLOOD SPECIMENOrdering Facility: [facility] Address: [address] [place] [address] Performed By: #### 5 7021-8 ####[facility] LABCLIA [id number] [place] [id number] [place] RBC (Bld) [#/Vol] 3.83 10*6/uL Low 3.90-5.20 [facility] Comment on above: Order Comment: Speci men Type: BLOOD SPECIMENOrdering Facility: [facility] Address: [address] [place] [address] Performed By: #### 5 7021-8 ####[facility] LABCLIA [id number] [place] [id number] [place] WBC (Bld) [#/Vol] 6.92 10*3/uL Normal 3.70-11.00 [facility] Comment on above: Order Comment: Speci men Type: BLOOD SPECIMENOrdering Facility: [facility] Address: [address] [place] [address] Performed By: #### 5 7021-8 ####[facility] LABCLIA [id number] [address] [place] CNOVon 08-17-2023 CNOV Office Visit (INTMWS ) LUIZA MAY ([id number]) 1955 F Date Time Provider Department 08/17/23 7:40 AM JOANIE BENITEZ INTMWS During your visit today, we recorded the following information about you: Temperature Pulse Respiration Blood pressure 97.3 degrees 84/minute 16/minute 89/58 Weight 63 kg Joanie Benitez PA-C 08/18/2023 10:06 AM Signed CC: Patient presents with: ER F/U: Granbylogan Garcia 2.1.24; fall HPI Luiza May is a 67 year old female who presents today with her significant other, Nasim, for hospital follow-up and for scalp staple removal (her brother Antelmo joined towards the end of visit). Facility: [facility], transferred to [facility] Date of visit: 08/05/2023-08/11/2023 Reason for visit: Head injury, unwitnessed fall Hospital course: Pt was initially evaluated at [facility] on 08/05/23 for head injury following unwitnessed fall (associated w/ altered mental status the day prior), Patient typically sleeps with CPAP at night, however she was sleeping in a separate room-did not use her CPAP that evening. CT obtained at [facility] ED confirmed SDH so patient was transferred to [facility] for trauma and neurosurgery consult.. Per EMS, she struck her head without any report of loss of consciousness. The duration of hospital stay was spent being monitored in ICU. No surgical intervention was performed. Past medical history significant for fall with head trauma, ultimately requiring right craniotomy for 7 dural hematoma evacuation (02/08/2022) at [facility]. Diagnosis: Subdural hematoma Discharge: 08/11/23, was [...] 1985 BREAST LUMPECTOMY HX 2006 DELIVERY ONLY , low cervical COLONOSCOPY FLX DX W/COLLJ SPEC WHEN PFRMD 06/09/2006 Colonoscopy COLONOSCOPY FLX DX W/COLLJ SPEC WHEN PFRMD 08/20/2016 Colonoscopy mac LAPAROSCOPY SURG CHOLECYSTECTOMY 1992 Cholecystectomy, lap PREOP PLACEMENT NEEDLE LOC STEREOTACTIC CORE BIOPSY 10/25/07 lsft ALLERGIES Entex [Phenylephrine-Guaifene sin] and Tetanus Vaccines And Toxoid MEDICATIONS acetaminophen [...] cylinders FAMILY HISTORY Problem Relation Age of (more content not included)... Normal [facility] Comprehensive metabolic 2000 panelon 08-17-2023 Albumin [Mass/Vol] 4.2 g/dL 3.9 - 4.9 g/dL [facility] ALP [Catalytic activity/Vol] 92 U/L 34 - 123 U/L [facility] ALT [Catalytic activity/Vol] 15 U/L 7 - 38 U/L [facility] Anion gap [Moles/Vol] 6 mmol/L Low 9 - 18 mmol/L [facility] AST [Catalytic activity/Vol] 18 U/L 13 - 35 U/L [facility] Bilirubin [Mass/Vol] Low 0.2 - 1 .3 mg/dL [facility] Calcium [Mass/Vol] 9.7 mg/dL 8.5 - 10. 2 mg/dL [facility] Chloride [Moles/Vol] 95 mmol/L Low 97 - 10 5 mmol/L [facility] CO2 [Moles/Vol] 40 mmol/L High 22 - 30 mmol/L [facility] Creatinine [Mass/Vol] 0.72 mg/dL 0.58 - 0.96 mg/dL [facility] Estimated Glomerular Filtration Rate 91 mL/min/1.73m >=60 mL/min/1.73m [facility] Glucose [Mass/Vol] 77 mg/dL 74 - 99 mg/dL [facility] Potassium [Moles/Vol] 5.1 mmol/L 3.7 - 5.1 mmol/L [facility] Protein [Mass/Vol] 7.0 g/dL 6.3 - 8.0 g/dL [facility] Sodium [Moles/Vol] 141 mmol/L 136 - 144 mmol/L [facility] Urea nitrogen [Mass/Vol] 16 mg/dL 7 - 21 mg/dL [facility] Albumin [Mass/Vol] 4.2 g/dL Normal 3.9-4.9 [facility] Comment on above: Order Comment: Speci men Type: BLOOD SPECIMENOrdering Facility: [facility] Address: [address] [place] [address] Performed By: #### 2 4323-8 ####[facility] LABCLIA [id number] [place] [id number] [place] ALP [Catalytic activity/Vol] 92 U/L Normal 34-123 [facility] Comment on above: Order Comment: Speci men Type: BLOOD SPECIMENOrdering Facility: [facility] Address: [address] [place] [address] Performed By: #### 2 4323-8 ####[facility] LABCLIA [id number] [place] [address] [place] ALT [Catalytic activity/Vol] 15 U/L Normal 7-38 [facility] Comment on above: Order Comment: Speci men Type: BLOOD SPECIMENOrdering Facility: [facility] Address: [address] [place] [address] Performed By: #### 2 4323-8 ####[facility] LABCLIA [id number] [place] [address] [place] Anion gap [Moles/Vol] 6 mmol/L Low 9-18 [facility] Comment on above: Order Comment: Speci men Type: BLOOD SPECIMENOrdering Facility: [facility] Address: [address] [place] [address] Performed By: #### 2 4323-8 ####[facility] LABCLIA [id number] [place] [address] [place] AST [Catalytic activity/Vol] 18 U/L Normal 13-35 [facility] Comment on above: Order Comment: Speci men Type: BLOOD SPECIMENOrdering Facility: [facility] Address: [address] [place], [place] [address] Performed By: #### 2 4323-8 ####[facility] LABCLIA [id number] [place] [id number] [place] Bilirubin [Mass/Vol] mg/dL Low 0.2-1.3 [facility] Comment on above: Order Comment: Speci men Type: BLOOD SPECIMENOrdering Facility: [facility] Address: [address] [place] [id number] Performed By: #### 2 4323-8 ####[facility] LABCLIA [id number] [place] [address] [place] Calcium [Mass/Vol] 9.7 mg/dL Normal 8.5-10.2 [facility] Comment on above: Order Comment: Speci men Type: BLOOD SPECIMENOrdering Facility: [facility] Address: [address] [place] [address] Performed By: #### 2 4323-8 ####[facility] LABCLIA [id number] [place] [address] [place] Chloride [Moles/Vol] 95 mmol/L Low 97-105 [facility] Comment on above: Order Comment: Speci men Type: BLOOD SPECIMENOrdering Facility: [facility] Address: [address] [place] [address] Performed By: #### 2 4323-8 ####[facility] LABCLIA [id number] [place] [address] [place] CO2 [Moles/Vol] 40 mmol/L High 22-30 [facility] Comment on above: Order Comment: Speci men Type: BLOOD SPECIMENOrdering Facility: [facility] Address: [address] [place], [place] [address] Performed By: #### 2 4323-8 ####[facility] LABCLIA [id number] [place] [id number] [place] Creatinine [Mass/Vol] 0.72 mg/dL Normal 0.58-0.96 [facility] Comment on above: Order Comment: Speci men Type: BLOOD SPECIMENOrdering Facility: [facility] Address: [address] [place], [place] [address] Performed By: #### 2 4323-8 ####[facility] LABCLIA [id number] [place] [address] [place] Creatinine and Glomerular filtration rate.predicted panel (S/P/Bld) 91 mL/min/1.73m??? Normal >=60 [facility] Comment on above: Order Comment: Kaela burns Type: BLOOD SPECIMENOrdering Facility: [facility] Address: [address] [place] [address] Result Comment: Sierra mated Glomerular Filtration Rate (eGFR) is calculated using the 2020 CKD-EPI creatinine equation. This equation utilizes serum creatinine, sex, and age as parameters. The creatinine assay has traceable calibration to isotope dilution-mass spectrometry. Refer to KDIGO guidelines for clinical interpretation. In patients with unstable renal function, e.g. those with acute kidney injury, the eGFR may not accurately reflect actual GFR. Performed By: #### 2 4323-8 ####[facility] LABCLIA [id number] [place] [address] [place] Glucose [Mass/Vol] 77 mg/dL Normal 74-99 [facility] Comment on above: Order Comment: Kaela burns Type: BLOOD SPECIMENOrdering Facility: [facility] Address: [address] [place] [address] Result Comment: The [place] [employer] (ADA) provides guidance for cutoff values for fasting glucose and random glucose. The ADA defines fasting as no caloric intake for at least 8 hours. Fasting plasma glucose results between 100 to 125 [...] Standards of Medical Care in Diabetes 2016, [place] [employer]. Diabetes Care. 2016.39(Suppl 1). Performed By: #### 2 4323-8 ####[facility] LABCLIA [id number] [place] [address] [place] Potassium [Moles/Vol] 5.1 mmol/L Normal 3.7-5.1 [facility] Comment on above: Order Comment: Speci men Type: BLOOD SPECIMENOrdering Facility: [facility] Address: [address] [place] [address] Performed By: #### 2 4323-8 ####[facility] LABCLIA [id number] [place] [address] [address] [place] Protein [Mass/Vol] 7.0 g/dL Normal 6.3-8.0 [facility] Comment on above: Order Comment: Speci men Type: BLOOD SPECIMENOrdering Facility: [facility] Address: [address] [place] [address] Performed By: #### 2 4323-8 ####[facility] LABCLIA [id number] [place] [address] [place] Sodium [Moles/Vol] 141 mmol/L Normal 136-144 [facility] Comment on above: Order Comment: Speci men Type: BLOOD SPECIMENOrdering Facility: [facility] Address: [address] [place] [address] Performed By: #### 2 4323-8 ####[facility] LABCLIA [id number] [place] [address] [place] Urea nitrogen [Mass/Vol] 16 mg/dL Normal 7-21 [facility] Comment on above: Order Comment: Speci men Type: BLOOD SPECIMENOrdering Facility: [facility] Address: [address] [place] [address] Performed By: #### 2 4323-8 ####[facility] LABCLIA [id number] [place] [address] [place] Basic metabolic 2000 panelon 08-10-2023 Anion gap [Moles/Vol] 8 mmol/L Low 9-18 [facility] Comment on above: Order Comment: Speci men Type: BLOOD SPECIMENOrdering Facility: [facility] Address: [address] [place] [address] Performed By: #### 2 4321-2 ####[facility] LABORATORYCLIA [id number] [place] [address] [place] Calcium [Mass/Vol] 8.9 mg/dL Normal 8.5-10.2 [facility] Comment on above: Order Comment: Speci men Type: BLOOD SPECIMENOrdering Facility: [facility] Address: [address] [place] [address] Performed By: #### 2 4321-2 ####[facility] LABORATORYCLIA [id number] [place] [address] [place] Chloride [Moles/Vol] 99 mmol/L Normal 97-105 [facility] Comment on above: Order Comment: Speci men Type: BLOOD SPECIMENOrdering Facility: [facility] Address: [address] [place] [address] Performed By: #### 2 4321-2 ####[facility] LABORATORYCLIA [id number] [address] [place] CO2 [Moles/Vol] 36 mmol/L High 22-30 [facility] Comment on above: Order Comment: Speci men Type: BLOOD SPECIMENOrdering Facility: [facility] Address: [address] [place] [address] Performed By: #### 2 4321-2 ####[facility] LABORATORYCLIA [id number] [address] [place] Creatinine [Mass/Vol] 0.63 mg/dL Normal 0.58-0.96 [facility] Comment on above: Order Comment: Speci men Type: BLOOD SPECIMENOrdering Facility: [facility] Address: [address] [place] [address] Performed By: #### 2 4321-2 ####[facility] LABORATORYCLIA [id number] [address] Creatinine and Glomerular filtration rate.predicted panel (S/P/Bld) 97 mL/min/1.73m??? Normal >=60 [facility] Comment on above: Order Comment: Speci men Type: BLOOD SPECIMENOrdering Facility: [facility] Address: [address] [place] [address] Result Comment: Sierra mated Glomerular Filtration Rate (eGFR) is calculated using the 2020 CKD-EPI creatinine equation. This equation utilizes serum creatinine, sex, and age as parameters. The creatinine assay has traceable calibration to isotope dilution-mass spectrometry. Refer to KDIGO guidelines for clinical interpretation. In patients with unstable renal function, e.g. those with acute kidney injury, the eGFR may not accurately reflect actual GFR. Performed By: #### 2 4321-2 ####[facility] LABORATORYCLIA [id number] [place] [address] [place] Glucose [Mass/Vol] 97 mg/dL Normal 74-99 [facility] Comment on above: Order Comment: Kaela burns Type: BLOOD SPECIMENOrdering Facility: [facility] Address: [address] [place] [address] Result Comment: The [place] Diabetes Association (ADA) provides guidance for cutoff values for fasting glucose and random glucose. The ADA defines fasting as no caloric intake for at least 8 hours. Fasting plasma glucose results between 100 to 125 [...] Standards of Medical Care in Diabetes 2016, [place] [employer]. Diabetes Care. 2016.39(Suppl 1). Performed By: #### 2 4321-2 ####[facility] LABORATORYCLIA [id number] [place] [address] [place] Potassium [Moles/Vol] 3.6 mmol/L Low 3.7-5.1 [facility] Comment on above: Order Comment: Kaela burns Type: BLOOD SPECIMENOrdering Facility: [facility] Address: [address] [id number] Performed By: #### 2 4321-2 ####[facility] LABORATORYCLIA [id number] [address] STATES OF [facility] Sodium [Moles/Vol] 143 mmol/L Normal 136-144 [facility] Comment on above: Order Comment: Speci men Type: BLOOD SPECIMENOrdering Facility: [facility] Address: [address] [place] [address] Performed By: #### 2 4321-2 ####[facility] LABORATORYCLIA [id number] [address] [place] Urea nitrogen [Mass/Vol] 10 mg/dL Normal 7-21 [facility] Comment on above: Order Comment: Speci men Type: BLOOD SPECIMENOrdering Facility: [facility] Address: [address] [place] [address] Performed By: #### 2 4321-2 ####[facility] LABORATORYCLIA [id number] [address] STATES OF [facility] CBC panel Auto (Bld)on 08-10 Erythrocyte distribution width (RBC) [Ratio] 13.9 % Normal 11.5-15.0 [facility] Comment on above: Order Comment: Speci men Type: BLOOD SPECIMENOrdering Facility: [facility] Address: [address] [place] [address] Performed By: #### 5 8410-2 ####[facility] LABORATORYCLIA [id number] [address] [place] Hematocrit (Bld) [Volume fraction] 32.5 % Low 36.0-46.0 [facility] Comment on above: Order Comment: Speci men Type: BLOOD SPECIMENOrdering Facility: [facility] Address: [address] [place] [address] Performed By: #### 5 8410-2 ####[facility] LABORATORYCLIA [id number] [address] [place] Hemoglobin (Bld) [Mass/Vol] 10.1 g/dL Low 11.5-15.5 [facility] Comment on above: Order Comment: Speci men Type: BLOOD SPECIMENOrdering Facility: [facility] Address: [address] [place] [address] Performed By: #### 5 8410-2 ####[facility] LABORATORYCLIA [id number] [address] MCH (RBC) [Entitic mass] 29.4 pg Normal 26.0-34.0 [facility] Comment on above: Order Comment: Speci men Type: BLOOD SPECIMENOrdering Facility: [facility] Address: [address] [place] [address] Performed By: #### 5 8410-2 ####[facility] LABORATORYCLIA [id number] [address] MCHC (RBC) [Mass/Vol] 31.1 g/dL Normal 30.5-36.0 [facility] Comment on above: Order Comment: Speci men Type: BLOOD SPECIMENOrdering Facility: [facility] Address: [address] [place] [address] Performed By: #### 5 8410-2 ####[facility] LABORATORYCLIA [id number] [address] MCV (RBC) [Entitic vol] 94.8 fL Normal 80.0-100.0 [facility] Comment on above: Order Comment: Speci men Type: BLOOD SPECIMENOrdering Facility: [facility] Address: [address] [place] [address] Performed By: #### 5 8410-2 ####[facility] LABORATORYCLIA [id number] [address] Nucleated RBC (Bld) [#/Vol] 10*3/uL Normal <0.01 [facility] Comment on above: Order Comment: Speci men Type: BLOOD SPECIMENOrdering Facility: [facility] Address: [address] [place] [address] Performed By: #### 5 8410-2 ####[facility] LABORATORYCLIA [id number] [address] Platelet mean volume (Bld) [Entitic vol] 10.9 fL Normal 9.0-12.7 [facility] Comment on above: Order Comment: Speci men Type: BLOOD SPECIMENOrdering Facility: [facility] Address: [address] [place] [address] Performed By: #### 5 8410-2 ####[facility] LABORATORYCLIA [id number] [address] Platelets (Bld) [#/Vol] 158 10*3/uL Normal 150-400 [facility] Comment on above: Order Comment: Speci men Type: BLOOD SPECIMENOrdering Facility: [facility] Address: [address] [place] [address] Performed By: #### 5 8410-2 ####[facility] LABORATORYCLIA [id number] [address] RBC (Bld) [#/Vol] 3.43 10*6/uL Low 3.90-5.20 [facility] Comment on above: Order Comment: Speci men Type: BLOOD SPECIMENOrdering Facility: [facility] Address: [address] [place] [address] Performed By: #### 5 8410-2 ####[facility] LABORATORYCLIA [id number] [address] WBC (Bld) [#/Vol] 6.94 10*3/uL Normal 3.70-11.00 [facility] Comment on above: Order Comment: Speci men Type: BLOOD SPECIMENOrdering Facility: [facility] Address: [address] [place] [address] Performed By: #### 5 8410-2 ####[facility] LABORATORYCLIA [id number] [address] CNDSon 08-10-2023 CNDS HNO ID: [id number] Author: MARÍA ORTA MD Service: General Surgery Author Type: Physician Type: Discharge Summary Filed: 08/26/2023 20:27 Note Text: DISCHARGE SUMMARY PATIENT NAME: Luiza May Code Status: Prior Highest Readmission Risk Score: 35 The 30 day readmissions risk score is derived from an internally validated risk model which evaluates patient level characteristics, utilization history, medication orders and lab results up until the day of discharge. Patients with a score of 40 or above are considered highest risk for readmission. Specific patient level drivers will be listed at the bottom of the summary. Admission Information Admission Information ADMIT DATE: 08/05/2023 DISCHARGE DATE: 08/10/2023 MY DOCTORS AND MEDICAL TEAM: My Main Hospital Doctor: Vince Ga MD Primary Care Provider: Maryam Franco MD My Medical Team Members: Treatment Team: Attending Provider: Vince Ga MD MY CONDITION AT DISCHARGE: Stable REASON I WAS IN THE HOSPITAL: Evaluation and treatment of injuries sustained following a fall SUMMARY OF WHAT HAPPENED WHILE I WAS IN THE HOSPITAL: Luiza May is a 67-year old female on ASA who presented to [facility] on 08/05/23 following an unwitnessed ground level fall at home. Patient states that she tripped over her laundry and fell, striking her head on the ground. She denied loss of consciousness. Imaging obtained and showed: 1. Acute anterior falcine 3 mm subdural hematoma Her posterior scalp laceration was repaired with 4 arturo at [facility]. She was also treated with DDAVP for ASA reversal. Given the above finding, patient was transferred to [facility] for further trauma evaluation and admitted to the SICU for management. NSGY was consulted regarding her SDH. They recommended non-operative management and holding ASA and Plavix. Her repeat CT brain showed a stable appearance of her SDH. Her hospitalization was complicated by acute on chronic hypercapnic respiratory failure secondary to COPD requiring BiPAP. She was treated for a COPD exacerbation and her respiratory status improved. She was successfully weaned from NIV to NC. PT/OT evaluated her and recommended home with home health care. On 08/10, patient was evaluated by trauma surgery and deemed medically stable to discharge to home with home health care. She is to follow-up with NSGY in two weeks with repeat imaging. She will need to follow-up with trauma surgery on 08/19 for staple removal. OTHER PROBLEMS/DIAGNOSIS: Principal Problem: Subdural hematoma (HCC) Active Problems: COPD (chronic obstructive pulmonary disease) (HCC) Chronic hypercapnic respiratory failure (HCC) Fall Scalp laceration, initial encounter Acute on chronic respiratory acidosis (HCC) Resolved Problems: Hypophosphatemia Hypomagnesemia Hypokalemia OPERATIONS PERFORMED WHILE IN THE HOSPITAL: None IMPORTANT TEST/PROCEDURES: Posterior scalp laceration repaired with 4 sutures TEST RESULTS NOT AVAILABLE AT THIS TIME: No pending results Discharge Disposition Discharge Disposition: Home With Home Care Activity When You Leave the Hospital Limited to: No strenuous exercise or heavy lifting (10-15 pounds) until cleared by neurosurgery May bathe and shower May walk with a walker No driving for: Until cleared by neurosurgery No prolonged bedrest, longer than 8 hours in a 24 hour period Diet Instructions Avoid Alcohol Drink 6 to 8 glasses of fluids per day Resume your pre-hospital diet For Pain When You Leave the Hospital If you become constipated, you may use any qbjg-nxj-inimgop treatment such as Milk of Magnesia, Sennakot, Prune Juice, Suppositories, etc. in addition to the stool softener/fiber supplement Use acetaminophen (Tylenol) as recommended on the bottle Call Your Doctor If You have a severe headache You have difficulty urinating or pain when urinating You have lightheadedness, fainting, or confusion You have pain and swelling in your legs, especially if it is only on one side and not the other You have pain with urination, cloudy urine or foul smelling urine You have persistent nausea/vomiting over 24 hours You have persistent or heavy bleeding You have swollen glands or cold and clammy skin Your temperature is greater than 101F Follow Up Appointments Follow-Up Appointment When: In 2 weeks Patient/Parents to call for appointment?: Yes Maryam Franco MD [phone] [address] [facility] [address] PCP Requested Referral Follow-Up Appointment When: In 2 weeks Patient/Parents to call for appointment?: Scheduled Carlton Osborn MD, PhD [phone] [address] [facility] [address] PCP Requested Referral Additional Provider to Provider Information: No notes on file Transitions of Care Critical Issues: SPECIALIST FOLLOW-UP: As above LABS AND PROCEDURES PENDING AT DISCHARGE: No pending results. (more content not included)... Normal [facility] NURSING PROGon 08-10-2023 NURSING PROG HNO ID: [id number] Author: JACKIE COMBS RN Service: ? Author Type: Registered Nurse Type: Nursing Progress Note Filed: 08/10/2023 13:22 Note Text: 0800: IV not drawing blood; 2x failed attempts at drawing phenytoin levels with stick; pt states she will not allow anymore attempts for blood draw. phenytoin held; surgery notified; plan of care ongoing. 1131: Surgery PA acknowledged; pt scheduled for anticipated D/C with home healthcare. Normal [facility] Bas Metab 2000 Pnl SerPlon 0 08-09-2023 Chloride [Moles/Vol] 101 mmol/L Low 102-109 [facility] Comment on above: Order Comment: Speci men Type: BLOOD SPECIMENOrdering Facility: [facility] Address: [address] [place] [address] Performed By: #### 2 4321-2, , 2776-07 ####[facility] LABORATORYCLIA [id number] [address] STATES OF [facility] Order Comment: Speci men Type: VENOUS BLOOD SPECIMENOrdering Facility: [facility] Address: [address] [place] [address] Performed By: #### 2 4344-4 ####[facility] LABORATORYCLIA [id number] [place] [address] [place] Basic metabolic 2000 panelon 08-09-2023 Anion gap [Moles/Vol] 6 mmol/L Low 9-18 [facility] Comment on above: Order Comment: Speci men Type: BLOOD SPECIMENOrdering Facility: [facility] Address: [address] [place] [address] Performed By: #### 2 4321-2, , 2776-07 ####[facility] LABORATORYCLIA [id number] [place] [address] [place] Calcium [Mass/Vol] 9.0 mg/dL Normal 8.5-10.2 [facility] Comment on above: Order Comment: Speci men Type: BLOOD SPECIMENOrdering Facility: [facility] Address: [address] [place] [address] Performed By: #### 2 4321-2, 28319-527[address]-07 ####[facility] LABORATORYCLIA [id number] [place] [address] [place] CO2 [Moles/Vol] 36 mmol/L High 22-30 [facility] Comment on above: Order Comment: Speci men Type: BLOOD SPECIMENOrdering Facility: [facility] Address: [address] [place] [address] Performed By: #### 2 4321-2, , 2776-07 ####[facility] LABORATORYCLIA [id number] [place] [id number] [place] Creatinine [Mass/Vol] 0.68 mg/dL Normal 0.58-0.96 [facility] Comment on above: Order Comment: Speci men Type: BLOOD SPECIMENOrdering Facility: [facility] Address: [address] [place] [address] Performed By: #### 2 4321-2, , 2776-07 ####[facility] [id number] [address] Creatinine and Glomerular filtration rate.predicted panel (S/P/Bld) 95 mL/min/1.73m??? Normal >=60 [facility] Comment on above: Order Comment: Speci men Type: BLOOD SPECIMENOrdering Facility: [facility] Address: [address] [place] [address] Result Comment: Sierra mated Glomerular Filtration Rate (eGFR) is calculated using the 2020 CKD-EPI creatinine equation. This equation utilizes serum creatinine, sex, and age as parameters. The creatinine assay has traceable calibration to isotope dilution-mass spectrometry. Refer to KDIGO guidelines for clinical interpretation. In patients with unstable renal function, e.g. those with acute kidney injury, the eGFR may not accurately reflect actual GFR. Performed By: #### 2 4321-2, , 2776-07 ####[facility] LABORATORYCLIA [id number] [place] [id number] [place] Glucose [Mass/Vol] 102 mg/dL High 74-99 [facility] Comment on above: Order Comment: Speci men Type: BLOOD SPECIMENOrdering Facility: [facility] Address: [address] [place] [address] Result Comment: The [place] Diabetes Association (ADA) provides guidance for cutoff values for fasting glucose and random glucose. The ADA defines fasting as no caloric intake for at least 8 hours. Fasting plasma glucose results between 100 to 125 [...] Standards of Medical Care in Diabetes 2016, [place] [employer]. Diabetes Care. 2016.39(Suppl 1). Performed By: #### 2 4321-2, , 2776-07 ####[facility] LABORATORYCLIA [id number] [place] [address] [place] Potassium [Moles/Vol] 3.7 mmol/L Normal 3.7-5.1 [facility] Comment on above: Order Comment: Kaela [facility] Type: BLOOD SPECIMENOrdering Facility: [facility] Address: [address] [place] [address] Performed By: #### 2 4321-2, , 2776-07 ####[facility] LABORATORYCLIA [id number] [place] [address] [place] Sodium [Moles/Vol] 143 mmol/L Normal 136-144 [facility] Comment on above: Order Comment: Kaela burns Type: BLOOD SPECIMENOrdering Facility: [facility] Address: [address] [place] [address] Performed By: #### 2 4321-2, , 2776-07 ####[facility] LABORATORYCLIA [id number] [place] [address] [place] Urea nitrogen [Mass/Vol] 10 mg/dL Normal 7-21 [facility] Comment on above: Order Comment: Kaela burns Type: BLOOD SPECIMENOrdering Facility: [facility] Address: [address] [place] [address] Performed By: #### 2 4321-2, 80075-2, 2777-1 ####[facility] LABORATORYCLIA [id number] [address] CBC panel Auto (Bld)on 08-09 Erythrocyte distribution width (RBC) [Ratio] 13.6 % Normal 11.5-15.0 [facility] Comment on above: Order Comment: Speci men Type: BLOOD SPECIMENOrdering Facility: [facility] Address: [address] [place] [address] Performed By: #### 5 8410-2 ####[facility] LABORATORYCLIA [id number] [address] STATES OF [facility] Hematocrit (Bld) [Volume fraction] 30.6 % Low 36.0-46.0 [facility] Comment on above: Order Comment: Speci men Type: BLOOD SPECIMENOrdering Facility: [facility] Address: [address] [place] [address] Performed By: #### 5 8410-2 ####[facility] LABORATORYCLIA [id number] [address] [place] Hemoglobin (Bld) [Mass/Vol] 9.5 g/dL Low 11.5-15.5 [facility] Comment on above: Order Comment: Speci men Type: BLOOD SPECIMENOrdering Facility: [facility] Address: [address] [place] [address] Performed By: #### 5 8410-2 ####[facility] LABORATORYCLIA [id number] [address] [place] MCH (RBC) [Entitic mass] 28.6 pg Normal 26.0-34.0 [facility] Comment on above: Order Comment: Speci men Type: BLOOD SPECIMENOrdering Facility: [facility] Address: [address] [place] [address] Performed By: #### 5 8410-2 ####[facility] LABORATORYCLIA [id number] [address] [place] MCHC (RBC) [Mass/Vol] 31.0 g/dL Normal 30.5-36.0 [facility] Comment on above: Order Comment: Speci men Type: BLOOD SPECIMENOrdering Facility: [facility] Address: [address] [place] [address] Performed By: #### 5 8410-2 ####[facility] LABORATORYCLIA [id number] [address] [place] MCV (RBC) [Entitic vol] 92.2 fL Normal 80.0-100.0 [facility] Comment on above: Order Comment: Speci men Type: BLOOD SPECIMENOrdering Facility: [facility] Address: [address] [place] [address] Performed By: #### 5 8410-2 ####[facility] LABORATORYCLIA [id number] [address] Nucleated RBC (Bld) [#/Vol] 10*3/uL Normal <0.01 [facility] Comment on above: Order Comment: Speci men Type: BLOOD SPECIMENOrdering Facility: [facility] Address: [address] [place] [address] Performed By: #### 5 8410-2 ####[facility] LABORATORYCLIA [id number] [address] STATES OF [facility] Platelet mean volume (Bld) [Entitic vol] 11.0 fL Normal 9.0-12.7 [facility] Comment on above: Order Comment: Speci men Type: BLOOD SPECIMENOrdering Facility: [facility] Address: [address] [place] [address] Performed By: #### 5 8410-2 ####[facility] LABORATORYCLIA [id number] [address] [place] Platelets (Bld) [#/Vol] 144 10*3/uL Low 150-400 [facility] Comment on above: Order Comment: Speci men Type: BLOOD SPECIMENOrdering Facility: [facility] Address: [address] [place] [address] Result Comment: No c lot detected. Performed By: #### 5 8410-2 ####[facility] LABORATORYCLIA [id number] [address] OF [facility] RBC (Bld) [#/Vol] 3.32 10*6/uL Low 3.90-5.20 [facility] Comment on above: Order Comment: Speci men Type: BLOOD SPECIMENOrdering Facility: [facility] Address: [address] [place], [place] [address] Performed By: #### 5 8410-2 ####[facility] LABORATORYCLIA [id number] [address] WBC (Bld) [#/Vol] 6.69 10*3/uL Normal 3.70-11.00 [facility] Comment on above: Order Comment: Speci men Type: BLOOD SPECIMENOrdering Facility: [facility] Address: [address] [place], [place] [address] Performed By: #### 5 8410-2 ####[facility] LABORATORYCLIA [id number] [address] CONSULT PROGon 08-09-2023 CONSULT PROG HNO ID: [id number] Author: MARÍA ORTA MD Service: General Surgery Author Type: Physician Type: Consult Progress Note Filed: 08/09/2023 09:55 Note Text: INPATIENT SICU PROGRESS NOTE SERVICE DATE: 08/09/2023 SERVICE TIME: 7:47 AM Subjective NAEON. AF but tachycardic to 106 this morning. She is oxygenating appropriately but requiring 4L LFNC. She denies any shortness of breath. She is tolerating regular diet w/o nausea or vomiting. She denies pain. Current Facility-Administered Medications Medication Dose Route Frequency NaCl 0.9% iv flush bag 20 mL [...] 4 mg INTRAVENOUS q 6 H PRN senna-docusate 8.6-50 mg [...] 2 mg INTRAVENOUS q 6 H PRN furosemide 20 mg tab(s) (LASIX) 20 mg ORAL q 12 H 6a/6p ARIPiprazole 2 mg tablet (ABILIFY) 2 mg ORAL DAILY PRN albuterol 2.5 mg /3 mL (0.083 %) 2.5 mg (PROVENTIL) 2.5 mg INHALATION q 6 H PRN zolpidem 10 mg tab(s) (AMBIEN) 10 mg ORAL AT BEDTIME PRN heparin 5,000 Units injection 5,000 Units SUBCUTANEOUS q 12 H Objective VITAL SIGNS BP 162/85 Pulse 106 Temp (Src) 98.2 (Oral) Resp 21 Ht 5' 2.992 (1.60m) Wt 146 lb 2.6 oz (66.3kg) SpO2 99% LMP 02/11/2006 BMI 25.90 kg/(m2). O2 Therapy: Nasal Cannula, Liters: 4 Temp (24hrs), Av.9 ?C (98.5 ?F), Min:36.8 ?C (98.2 ?F), Max:37.2 ?C (99 ?F) Date 08/08/23699 - 08/09/23 0608/09/23 07 - 08/10/23 0659 Shift 4978-8460 0271-8336 3360-9665 24 Hour Total 3083-5699 3888-1379 5514-5089 24 Hour Total INTAKE PO 360 180 240 780 PO 360 180 240 780 Shift Total 360 180 240 780 OUTPUT Urine 1899 1899 Urine Not Saved. 1 x 1 x Output ([REMOVED] External Collection Device 08/06/23 0730 [facility] 08/09/23 0645) 1899 1899 # of BMs Number of BMs 1 x 1 x Shift Total 1899 1899 Weight (kg) 70.7 70.7 66.3 66.3 66.3 66.3 66.3 66.3 PHYSICAL EXAM: GENERAL: Alert. NEURO: AANDOx3. No focal neurologic deficits. Sensation grossly intact. HEENT: Normocephalic. Scalp laceration repaired with 4 arturo LUNGS: Unlabored breathing on 4L. Equal excursion bilaterally. CARDIAC: Regular rate, on tele, Good perfusion throughout. ABDOMEN: Soft, non-tender, non-distended. No rebound or guarding. EXTREMITIES: REGALADO. No deformities. SKIN: No obvious jaundice or pallor. DATA: Diagnostic tests reviewed for today's visit: Recent Labs 08/07/2321708/06/23201008/06/23923 PH 7.35 7.36 7.23* PCO2 62* 60* 98* PO2 108* 72* <40* BE 7* 7* 10* HCO3 34* 33* 39* O2HB 96 93* 37* COHB 1.7 1.9 0.9 MHGB 1.3 1.1 1.2 PHTC 7.36 7.36 -- PCO2T 61* 60* -- PO2T 106* 71* -- O2AD -- -- 30 Recent Labs 08/09/23 0356 08/08/23201708/08/23 1041 08/08/23 0219 08/07/23 1744 08/07/23 1520 08/07/23 0218 CREAT 0.68 -- -- 0.68 -- -- 0.58 BUN 10 -- -- 10 -- -- 15 NA 143 -- -- 143 -- -- 143 K 3.7 -- -- 3.8 -- -- 3.6* CHLOR 101 -- -- 102 -- -- 104 CO2 36* -- -- 34* -- -- 33* ANION 6* -- -- 7* -- -- 6* GLUC 102* -- -- 100* -- -- 117* CA 9.0 -- -- 8.7 -- -- 8.7 P 3.7 -- -- 4.0 5.9* -- 1.9* MG 1.9 -- -- 2.2 -- -- 1.7 WBC 6.69 -- -- 6.80 -- -- 4.94 HB 9.5* -- -- 10.1* -- -- 8.5* HCT 30.6* -- -- 32.7* -- -- 28.1* PLT 144* -- -- 125* -- -- 103* LACT 0.5 1.1 2.1 -- -- 1.9 0.5 Assessment AND Plan ACTIVE PROBLEM LIST Panlobular Emphysema (Hcc) Other Abnormal Blood Chemistry Benign Neoplasm of Colon Nonspecific Abnormal Finding in Stool Contents Other Affections of Shoulder Region, Not Elsewhere Classified Carcinoma in Situ of Ringold (more content not included)... Normal [facility] Gas and Carbon monoxide pane l (BldV)on 08-09-2023 Base excess Calc (BldV) [Moles/Vol] 10 mmol/L High 0-2 [facility] Comment on above: Order Comment: Speci men Type: VENOUS BLOOD SPECIMENOrdering Facility: [facility] Address: [address] [place] [address] Performed By: #### 2 4344-4 ####[facility] LABORATORYCLIA [id number] [address] Body temperature 98.24 [degF] Normal [facility] Comment on above: Order Comment: Speci men Type: VENOUS BLOOD SPECIMENOrdering Facility: [facility] Address: [address] [place] [address] Performed By: #### 2 4344-4 ####[facility] LABORATORYCLIA [id number] [address] Calcium.ionized (BldV) [Mass/Vol] 1.16 mmol/L Normal 1.08-1.30 [facility] Comment on above: Order Comment: Speci men Type: VENOUS BLOOD SPECIMENOrdering Facility: [facility] Address: [address] [place] [address] Performed By: #### 2 4344-4 ####[facility] LABORATORYCLIA [id number] [address] Calcium.ionized adjusted to pH 7.4 (BldA) [Moles/Vol] 1.15 mmol/L Normal 1.08-1.30 [facility] Comment on above: Order Comment: Speci men Type: VENOUS BLOOD SPECIMENOrdering Facility: [facility] Address: [address] [place] [address] Performed By: #### 2 4344-4 ####[facility] LABORATORYCLIA [id number] [address] Carboxyhemoglobin (BldV) [Mass fraction] 2.3 % High 0.0-2.0 [facility] Comment on above: Order Comment: Speci men Type: VENOUS BLOOD SPECIMENOrdering Facility: [facility] Address: [address] [place] [address] Result Comment: Carb oxyhemoglobin Reference Range for Smokers: 2.0-8.0% Performed By: #### 2 4344-4 ####[facility] LABORATORYCLIA [id number] [address] CO2 (BldV) [Partial pressure] 60 mm[Hg] High 42-55 [facility] Comment on above: Order Comment: Speci men Type: VENOUS BLOOD SPECIMENOrdering Facility: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 ####[facility]ORATORYCLIA [id number] [address] [place] Platelets (Bld) [#/Vol] 125 10*3/uL Low 150-400 [facility] Comment on above: Order Comment: Speci men Type: BLOOD SPECIMENOrdering Facility: [facility] Address: [address] [place] [address] Performed By: #### 5 8410-2 ####[facility]ORATORYCLIA [id number] [address] [place] RBC (Bld) [#/Vol] 3.52 10*6/uL Low 3.90-5.20 [facility] Comment on above: Order Comment: Speci men Type: BLOOD SPECIMENOrdering Facility: [facility] Address: [address] [place], [place] [address] Performed By: #### 5 8410-2 ####[facility] LABORATORYCLIA [id number] [address] OF [facility] WBC (Bld) [#/Vol] 6.80 10*3/uL Normal 3.70-11.00 [facility] Comment on above: Order Comment: Speci men Type: BLOOD SPECIMENOrdering Facility: [facility] Address: [address] [place] [address] Performed By: #### 5 8410-2 ####[facility] LABORATORYCLIA [id number] [place] [id number] [facility] CONSULT PROGon 08-08-2023 CONSULT PROG HNO ID: [id number] Author: MARÍA ORTA MD Service: General Surgery Author Type: Physician Type: Consult Progress Note Filed: 08/08/2023 09:48 Note Text: INPATIENT SICU PROGRESS NOTE SERVICE DATE: 08/08/2023 SERVICE TIME: 6:46 AM Subjective NAEON. Patient is off BiPAP this AM. She denies pain or shortness of breath. She states she has been very anxious and unable to sleep without her home dose 10mg ambien Current Facility-Administered Medications Medication Dose Route Frequency NaCl 0.9% iv flush bag 20 mL [...] 4 mg INTRAVENOUS q 6 H PRN senna-docusate 8.6-50 mg [...] 2 mg INTRAVENOUS q 6 H PRN furosemide 20 mg tab(s) (LASIX) 20 mg ORAL q 12 H 6a/6p ARIPiprazole 2 mg tablet (ABILIFY) 2 mg ORAL DAILY PRN albuterol 2.5 mg /3 mL (0.083 %) 2.5 mg (PROVENTIL) 2.5 mg INHALATION q 6 H PRN zolpidem 5 mg tab(s) (AMBIEN) 5 mg ORAL AT BEDTIME PRN Objective VITAL SIGNS BP 129/64 Pulse 98 Temp (Src) 98.2 (Oral) Resp 21 Ht 5' 2.992 (1.60m) Wt 155 lb 13.8 oz (70.7kg) SpO2 99% LMP 02/11/2006 BMI 27.62 kg/(m2). O2 Therapy: (S) Nasal Cannula, Liters: (S) 4, %FIO2: 30 Temp (24hrs), Av.9 ?C (98.4 ?F), Min:36.8 ?C (98.2 ?F), Max:37 ?C (98.6 ?F) Date 08/07/23699 - 08/08/2359 08/08/23699 - 08/09/23 0659 Shift 4328-4511 3511-5188 8427-5100 24 Hour Total 4455-8957 7578-6822 6236-6848 24 Hour Total INTAKE PO 340 360 120 820 PO 340 360 120 820 IV 854 854 Volume (mL) (potassium phosphate 45 mmol in NaCl 0.9% 500 mL) 500 500 Volume (mL) (magnesium sulfate in sterile water 4 g in 100 mL iv piggyback) 100 100 Volume (mL) (dextrose 5% in NaCl 0.9% iv infusion) 254 254 Shift Total 1194 308 219 0366 OUTPUT Urine 100 215 094 3994 Output ( External Collection Device 08/06/23 0730 [facility]) 100 367 253 7832 # of BMs Number of BMs 1 x 1 x Shift Total 100 683 930 5506 Weight (kg) 64.9 64.9 70.7 70.7 70.7 70.7 70.7 70.7 PHYSICAL EXAM: GENERAL: Alert. NEURO: AANDOx3. No focal neurologic deficits. Sensation grossly intact. HEENT: Normocephalic. Scalp laceration repaired with 4 arturo LUNGS: Unlabored breathing on 3L. Equal excursion bilaterally. CARDIAC: Regular rate, on tele, Good perfusion throughout. ABDOMEN: Soft, non-tender, non-distended. No rebound or guarding. EXTREMITIES: REGALADO. No deformities. SKIN: No obvious jaundice or pallor. DATA: Diagnostic tests reviewed for today's visit: Recent Labs 08/07/238 08/06/23201008/06/23 0924 08/06/23 0601 PH 7.35 7.36 7.23* 7.25* PCO2 62* 60* 98* 89* PO2 108* 72* <40* 179* BE 7* 7* 10* 9* HCO3 34* 33* 39* 38* O2HB 96 93* 37* 97 COHB 1.7 1.9 0.9 0.9 MHGB 1.3 1.1 1.2 1.3 PHTC 7.36 7.36 -- 7.26* PCO2T 61* 60* -- 88* PO2T 106* 71* -- 178* O2AD -- -- 30 45 Recent Labs 08/08/2321808/07/23174308/07/23 1520 08/07/2321708/06/23201008/06/2392308/06/23 0608/05/23220908/05/232128 CREAT 0.68 -- -- 0.58 -- -- -- -- 0.68 BUN 10 -- -- 15 -- -- -- -- 17 NA 143 -- -- 143 -- -- -- -- 144 K 3.8 -- -- 3.6* -- -- -- -- 4.6 CHLOR 102 -- -- 104 -- -- -- -- 101 CO2 34* -- -- 33* -- -- -- -- 39* ANION 7* -- -- 6* -- -- -- -- 4* GLUC 100* -- -- 117* -- -- -- -- 87 CA 8.7 -- -- 8.7 -- -- -- -- 8.9 P 4.0 5.9* -- 1.9* -- -- -- -- -- MG 2.2 -- -- 1.7 -- -- -- -- -- ALB -- -- -- -- -- -- -- -- 4.0 AST -- -- -- -- -- -- -- -- 18 ALT -- -- -- -- -- -- -- -- 13 ALKPHOS -- -- -- -- -- -- -- -- 82 TBILI -- -- -- -- -- -- - (more content not included)... Normal [facility] Calcium.ionized [Moles/Vol]o n 08-08-2023 Calcium.ionized (BldV) [Mass/Vol] 1.12 mmol/L Normal 1.08-1.30 [facility] Comment on above: Order Comment: Speci men Type: BLOOD SPECIMENOrdering Facility: [facility] Address: [address] [place] [address] Performed By: #### 1 995-0 ####[facility] LABORATORYCLIA [id number] [address] STATES OF [facility] Calcium.ionized adjusted to pH 7.4 (Bld) [Moles/Vol] 1.11 mmol/L Normal 1.08-1.30 [facility] Comment on above: Order Comment: Speci men Type: BLOOD SPECIMENOrdering Facility: [facility] Address: [address] [place] [address] Performed By: #### 1 995-0 ####[facility]ORATORYCLIA [id number] [address] [place] Gas and Carbon monoxide pane l (BldV)on 08-08-2023 Base excess Calc (BldV) [Moles/Vol] 9 mmol/L High 0-2 [facility] Comment on above: Order Comment: Speci men Type: VENOUS BLOOD SPECIMENOrdering Facility: [facility] Address: [address] [place] [address] Performed By: #### 2 4344-4 ####[facility] LABORATORYCLIA [id number] [address] [place] Body temperature 98.24 [degF] Normal [facility] Comment on above: Order Comment: Speci men Type: VENOUS BLOOD SPECIMENOrdering Facility: [facility] Address: [address] [place] [address] Performed By: #### 2 4344-4 ####[facility]ORATORYCLIA [id number] [address] [place] Calcium.ionized (BldV) [Mass/Vol] 1.20 mmol/L Normal 1.08-1.30 [facility] Comment on above: Order Comment: Speci men Type: VENOUS BLOOD SPECIMENOrdering Facility: [facility] Address: [address] [place] [address] Performed By: #### 2 4344-4 ####[facility] LABORATORYCLIA [id number] [address] Calcium.ionized adjusted to pH 7.4 (BldA) [Moles/Vol] 1.19 mmol/L Normal 1.08-1.30 [facility] Comment on above: Order Comment: Speci men Type: VENOUS BLOOD SPECIMENOrdering Facility: [facility] Address: [address] [place] [address] Performed By: #### 2 4344-4 ####[facility] LABORATORYCLIA [id number] [address] Carboxyhemoglobin (BldV) [Mass fraction] 0.9 % Normal 0.0-2.0 [facility] Comment on above: Order Comment: Speci men Type: VENOUS BLOOD SPECIMENOrdering Facility: [facility] Address: [address] [place] [address] Result Comment: Carb oxyhemoglobin Reference Range for Smokers: 2.0-8.0% Performed By: #### 2 4344-4 ####[facility]ORATORYCLIA [id number] [address] Chloride [Moles/Vol] 101 mmol/L Low 102-109 [facility] Comment on above: Order Comment: Speci men Type: VENOUS BLOOD SPECIMENOrdering Facility: [facility] Address: [address] [place] [address] Performed By: #### 2 4344-4 ####[facility] LABORATORYCLIA [id number] [address] [place] CO2 (BldV) [Partial pressure] 58 mm[Hg] High 42-55 [facility] Comment on above: Order Comment: Speci men Type: VENOUS BLOOD SPECIMENOrdering Facility: [facility] Address: [address] [place] [address] Performed By: #### 2 4344-4 ####[facility] LABORATORYCLIA [id number] [address] [place] CO2 adjusted to patient's actual temperature (BldV) [Partial pressure] 57 mmHg High 42-55 [facility] Comment on above: Order Comment: Speci men Type: VENOUS BLOOD SPECIMENOrdering Facility: [facility] Address: [address] [place] [address] Performed By: #### 2 4344-4 ####[facility] LABORATORYCLIA [id number] [place] [address] [place] Glucose [Mass/Vol] 93 mg/dL Normal 60-105 [facility] Comment on above: Order Comment: Speci men Type: VENOUS BLOOD SPECIMENOrdering Facility: [facility] Address: [address] [place] [address] Performed By: #### 2 4344-4 ####[facility] LABORATORYCLIA [id number] [place] [address] [place] HCO3 (Bld) [Moles/Vol] 35 mmol/L High 24-28 [facility] Comment on above: Order Comment: Speci men Type: VENOUS BLOOD SPECIMENOrdering Facility: [facility] Address: [address] [place] [address] Performed By: #### 2 4344-4 ####[facility] LABORATORYCLIA [id number] [place] [address] [place] Hematocrit (Bld) [Volume fraction] 30.6 % Low 36.0-46.0 [facility] Comment on above: Order Comment: Speci men Type: VENOUS BLOOD SPECIMENOrdering Facility: [facility] Address: [address] [place] [address] Performed By: #### 2 4344-4 ####[facility] LABORATORYCLIA [id number] [place] [address] [place] Hemoglobin (Bld) [Mass/Vol] 9.9 g/dL Low 11.5-15.5 [facility] Comment on above: Order Comment: Speci men Type: VENOUS BLOOD SPECIMENOrdering Facility: [facility] Address: [address] [place] [address] Performed By: #### 2 4344-4 ####[facility] LABORATORYCLIA [id number] [place] [address] [place] Lactate [Moles/Vol] 1.1 mmol/L Normal 0.5-2.2 [facility] Comment on above: Order Comment: Speci men Type: VENOUS BLOOD SPECIMENOrdering Facility: [facility] Address: [address] [place] [address] Performed By: #### 2 4344-4 ####[facility]ATORYCLIA [id number] [address] [place] Methemoglobin (Bld) [Mass fraction] 1.4 % Normal 0.0-1.5 [facility] Comment on above: Order Comment: Speci men Type: VENOUS BLOOD SPECIMENOrdering Facility: [facility] Address: [address] [place] [address] Performed By: #### 2 4344-4 ####[facility]ATORYCLIA [id number] [address] [place] O2 THERAPY Normal [facility] Comment on above: Order Comment: Speci men Type: VENOUS BLOOD SPECIMENOrdering Facility: [facility] Address: [address] [place] [address] Result Comment: NC = Nasal Cannula Bag Valve Mask Performed By: #### 2 4344-4 ####[facility]ATORYCLIA [id number] [address] [place] Oxygen (BldV) [Partial pressure] 80 mm[Hg] High 35-45 [facility] Comment on above: Order Comment: Speci men Type: VENOUS BLOOD SPECIMENOrdering Facility: [facility] Address: [address] [place] [address] Performed By: #### 2 4344-4 ####[facility]ATORYCLIA [id number] [address] [place] Oxygen adjusted to patient's actual temperature (BldV) [Partial pressure] 79 mmHg High 35-45 [facility] Comment on above: Order Comment: Speci men Type: VENOUS BLOOD SPECIMENOrdering Facility: [facility] Address: [address] [place] [address] Performed By: #### 2 4344-4 ####[facility]ATORYCLIA [id number] [address] [place] Oxygen saturation in Venous blood 96 % High 60-85 [facility] Comment on above: Order Comment: Speci men Type: VENOUS BLOOD SPECIMENOrdering Facility: [facility] Address: [address] [place] [address] Performed By: #### 2 4344-4 ####[facility] LABORATORYCLIA [id number] [address] [place] Oxyhemoglobin (BldV) [Mass fraction] 94 % High 60-85 [facility] Comment on above: Order Comment: Speci men Type: VENOUS BLOOD SPECIMENOrdering Facility: [facility] Address: [address] [place] [address] Performed By: #### 2 4344-4 ####[facility] LABORATORYCLIA [id number] [place] [address] [place] pH (BldV) 7.40 [pH] Normal 7.32-7.42 [facility] Comment on above: Order Comment: Speci men Type: VENOUS BLOOD SPECIMENOrdering Facility: [facility] Address: [address] [place] [address] Performed By: #### 2 4344-4 ####[facility] LABORATORYCLIA [id number] [address] [place] pH adjusted to patient's actual temperature (BldV) 7.40 Normal 7.32-7.42 [facility] Comment on above: Order Comment: Speci men Type: VENOUS BLOOD SPECIMENOrdering Facility: [facility] Address: [address] [place] [address] Performed By: #### 2 4344-4 ####[facility] LABORATORYCLIA [id number] [place] [address] [place] Potassium [Moles/Vol] 3.8 mmol/L Normal 3.5-5.0 [facility] Comment on above: Order Comment: Speci men Type: VENOUS BLOOD SPECIMENOrdering Facility: [facility] Address: [address] [place], [place] [address] Performed By: #### 2 4344-4 ####[facility] LABORATORYCLIA [id number] [address] STATES [facility] Sodium [Moles/Vol] 142 mmol/L Normal 136-144 [facility] Comment on above: Order Comment: Speci men Type: VENOUS BLOOD SPECIMENOrdering Facility: [facility] Address: [address] [place] [address] Performed By: #### 2 4344-4 ####[facility] LABORATORYCLIA [id number] [address] [place] Base excess Calc (BldV) [Moles/Vol] 9 mmol/L High 0-2 [facility] Comment on above: Order Comment: Speci men Type: VENOUS BLOOD SPECIMENOrdering Facility: [facility] Address: [address] [place] [address] Performed By: #### 2 4344-4 ####[facility] LABORATORYCLIA [id number] [address] Body temperature 98.24 [degF] Normal [facility] Comment on above: Order Comment: Speci men Type: VENOUS BLOOD SPECIMENOrdering Facility: [facility] Address: [address] [place] [address] Performed By: #### 2 4344-4 ####[facility]ORATORYCLIA [id number] [address] [place] [facility] Calcium.ionized (BldV) [Mass/Vol] 1.17 mmol/L Normal 1.08-1.30 [facility] Comment on above: Order Comment: Speci men Type: VENOUS BLOOD SPECIMENOrdering Facility: [facility] Address: [address] [place] [address] Performed By: #### 2 4344-4 ####[facility]ORATORYCLIA [id number] [address] [place] [facility] Calcium.ionized adjusted to pH 7.4 (BldA) [Moles/Vol] 1.17 mmol/L Normal 1.08-1.30 [facility] Comment on above: Order Comment: Speci men Type: VENOUS BLOOD SPECIMENOrdering Facility: [facility] Address: [address] [place] [address] Performed By: #### 2 4344-4 ####[facility]ORATORYCLIA [id number] [address] [place] Carboxyhemoglobin (BldV) [Mass fraction] 0.9 % Normal 0.0-2.0 [facility] Comment on above: Order Comment: Speci men Type: VENOUS BLOOD SPECIMENOrdering Facility: [facility] Address: [address] [place] [address] Result Comment: Carb oxyhemoglobin Reference Range for Smokers: 2.0-8.0% Performed By: #### 2 4344-4 ####[facility]ORATORYCLIA [id number] [address] [place] Chloride [Moles/Vol] 101 mmol/L Low 102-109 [facility] Comment on above: Order Comment: Speci men Type: VENOUS BLOOD SPECIMENOrdering Facility: [facility] Address: [address] [place] [address] Performed By: #### 2 4344-4 ####[facility] LABORATORYCLIA [id number] [address] [place] CO2 (BldV) [Partial pressure] 58 mm[Hg] High 42-55 [facility] Comment on above: Order Comment: Speci men Type: VENOUS BLOOD SPECIMENOrdering Facility: [facility] Address: [address] [place] [address] Performed By: #### 2 4344-4 ####[facility] LABORATORYCLIA [id number] [address] [place] CO2 adjusted to patient's actual temperature (BldV) [Partial pressure] 57 mmHg High 42-55 [facility] Comment on above: Order Comment: Speci men Type: VENOUS BLOOD SPECIMENOrdering Facility: [facility] Address: [address] [place] [address] Performed By: #### 2 4344-4 ####[facility] LABORATORYCLIA [id number] [place] [address] [place] Glucose [Mass/Vol] 177 mg/dL High 60-105 [facility] Comment on above: Order Comment: Speci men Type: VENOUS BLOOD SPECIMENOrdering Facility: [facility] Address: [address] [place] [address] Performed By: #### 2 4344-4 ####[facility] LABORATORYCLIA [id number] [place] [address] [place] HCO3 (Bld) [Moles/Vol] 34 mmol/L High 24-28 [place] [facility] Comment on above: Order Comment: Speci men Type: VENOUS BLOOD SPECIMENOrdering Facility: [facility] Address: [address] [place] [address] Performed By: #### 2 4344-4 ####[facility] LABORATORYCLIA [id number] [address] [place] Hematocrit (Bld) [Volume fraction] 30.2 % Low 36.0-46.0 [facility] Comment on above: Order Comment: Speci men Type: VENOUS BLOOD SPECIMENOrdering Facility: [facility] Address: [address] [place] [address] Performed By: #### 2 4344-4 ####[facility] LABORATORYCLIA [id number] [address] [place] Hemoglobin (Bld) [Mass/Vol] 9.8 g/dL Low 11.5-15.5 [facility] Comment on above: Order Comment: Speci men Type: VENOUS BLOOD SPECIMENOrdering Facility: [facility] Address: [address] [place] [address] Performed By: #### 2 4344-4 ####[facility] LABORATORYCLIA [id number] [place] [address] [place] Lactate [Moles/Vol] 2.1 mmol/L Normal 0.5-2.2 [facility] Comment on above: Order Comment: Speci men Type: VENOUS BLOOD SPECIMENOrdering Facility: [facility] Address: [address] [place] [address] Performed By: #### 2 4344-4 ####[facility]ATORYCLIA [id number] [place] [id number] [place] LITERS 4 Liters/min Normal [facility] Comment on above: Order Comment: Speci men Type: VENOUS BLOOD SPECIMENOrdering Facility: [facility] Address: [address] [place] [address] Performed By: #### 2 4344-4 ####[facility]ATORYCLIA [id number] [address] [place] Methemoglobin (Bld) [Mass fraction] 1.3 % Normal 0.0-1.5 [facility] Comment on above: Order Comment: Speci men Type: VENOUS BLOOD SPECIMENOrdering Facility: [facility] Address: [address] [place] [address] Performed By: #### 2 4344-4 ####[facility] LABORATORYCLIA [id number] [address] [place] O2 THERAPY NC = Nasal Cannula Normal [facility] Comment on above: Order Comment: Speci men Type: VENOUS BLOOD SPECIMENOrdering Facility: [facility] Address: [address] [place] [address] Performed By: #### 2 4344-4 ####[facility]ORATORYCLIA [id number] [address] [place] Oxygen (BldV) [Partial pressure] 81 mm[Hg] High 35-45 [facility] Comment on above: Order Comment: Speci men Type: VENOUS BLOOD SPECIMENOrdering Facility: [facility] Address: [address] [place] [address] Performed By: #### 2 4344-4 ####[facility]ATORYCLIA [id number] [address] [place] Oxygen adjusted to patient's actual temperature (BldV) [Partial pressure] 80 mmHg High 35-45 [facility] Comment on above: Order Comment: Speci men Type: VENOUS BLOOD SPECIMENOrdering Facility: [facility] Address: [address] [place] [address] Performed By: #### 2 4344-4 ####[facility]ATORYCLIA [id number] [place] [id number] [place] Oxygen saturation in Venous blood 95 % High 60-85 [facility] Comment on above: Order Comment: Speci men Type: VENOUS BLOOD SPECIMENOrdering Facility: [facility] Address: [address] [place] [address] Performed By: #### 2 4344-4 ####[facility]ORATORYCLIA [id number] [place] [id number] [place] Oxyhemoglobin (BldV) [Mass fraction] 93 % High 60-85 [facility] Comment on above: Order Comment: Speci men Type: VENOUS BLOOD SPECIMENOrdering Facility: [facility] Address: [address] [place] [address] Performed By: #### 2 4344-4 ####[facility] LABORATORYCLIA [id number] [place] [address] [place] pH (BldV) 7.39 [pH] Normal 7.32-7.42 [facility] Comment on above: Order Comment: Speci men Type: VENOUS BLOOD SPECIMENOrdering Facility: [facility] Address: [address] [place] [address] Performed By: #### 2 4344-4 ####[facility]ORATORYCLIA [id number] [address] [place] pH adjusted to patient's actual temperature (BldV) 7.40 Normal 7.32-7.42 [facility] Comment on above: Order Comment: Speci men Type: VENOUS BLOOD SPECIMENOrdering Facility: [facility] Address: [address] [place] [address] Performed By: #### 2 4344-4 ####[facility] LABORATORYCLIA [id number] [place] [address] [place] Potassium [Moles/Vol] 3.6 mmol/L Normal 3.5-5.0 [facility] Comment on above: Order Comment: Speci men Type: VENOUS BLOOD SPECIMENOrdering Facility: [facility] Address: [address] [place] [address] Performed By: #### 2 4344-4 ####[facility]ORATORYCLIA [id number] [address] [place] Sodium [Moles/Vol] 142 mmol/L Normal 136-144 [facility] Comment on above: Order Comment: Speci men Type: VENOUS BLOOD SPECIMENOrdering Facility: [facility] Address: [address] [place] [address] Performed By: #### 2 4344-4 ####[facility]ORATORYCLIA [id number] [address] Magnesium SerPl-ncon 08-08 Magnesium [Mass/Vol] 2.2 mg/dL Normal 1.7-2.3 [facility] Comment on above: Order Comment: Speci men Type: BLOOD SPECIMENOrdering Facility: [facility] Address: [address] [place] [address] Performed By: #### 2 4321-2, 06060-4, 2777-1 ####[facility]ORATORYCLIA [id number] [address] [place] NURSING PROGon 08-08-2023 NURSING PROG HNO ID: [id number] Author: MIRANDA ROBERTS RN Service: ADT-SICU Author Type: Registered Nurse Type: Nursing Progress Note Filed: 08/08/2023 20:43 Note Text: Other: Attempted to get the venous gas per order. Attempted 2 IV's and were unsuccessful under ultrasound. Under ultra sound attempted blood draw times 2 and was able to get venous gas. Patient off BIPAP since 0200. Will address with primary team to get a more invasive line (midline or picc). Patient is stated feeling like a pin cushion. Normal [facility] Phosphate SerPl-mCncon 08-08 Phosphate [Mass/Vol] 4.0 mg/dL Normal 2.7-4.8 [facility] Comment on above: Order Comment: Speci men Type: BLOOD SPECIMENOrdering Facility: [facility] Address: [address] [place] [address] Performed By: #### 2 4321-2, 96242-1, 2777-1 ####[facility]ORATORYCLIA [id number] [address] [place] ARTERIAL BLOOD GASESon 08-07 Base excess Calc (Bld) [Moles/Vol] 7 mmol/L High 0-2 [facility] Comment on above: Order Comment: Speci men Type: ARTERIAL BLOOD SPECIMENOrdering Facility: [facility] Address: [address] [place] [address] Performed By: #### A LLBG ####[facility]ORATORYCLIA [id number] [address] [place] Body temperature 97.7 [degF] Normal [facility] Comment on above: Order Comment: Speci men Type: ARTERIAL BLOOD SPECIMENOrdering Facility: [facility] Address: [address] [place] [address] Performed By: #### A LLBG ####[facility]ORATORYCLIA [id number] [address] [place] Calcium.ionized (BldV) [Mass/Vol] 1.24 mmol/L Normal 1.08-1.30 [facility] Comment on above: Order Comment: Speci men Type: ARTERIAL BLOOD SPECIMENOrdering Facility: [facility] Address: [address] [place] [address] Performed By: #### A LLBG ####[facility]ORATORYCLIA [id number] [address] [place] Calcium.ionized adjusted to pH 7.4 (BldA) [Moles/Vol] 1.20 mmol/L Normal 1.08-1.30 [facility] Comment on above: Order Comment: Speci men Type: ARTERIAL BLOOD SPECIMENOrdering Facility: [facility] Address: [address] [place] [address] Performed By: #### A LLBG ####[facility]ORATORYCLIA [id number] [address] [place] Carboxyhemoglobin (BldA) [Mass fraction] 1.7 % Normal 0.0-2.0 [facility] Comment on above: Order Comment: Speci men Type: ARTERIAL BLOOD SPECIMENOrdering Facility: [facility] Address: [address] [place] [address] Result Comment: Carb oxyhemoglobin Reference Range for Smokers: 2.0-8.0% Performed By: #### A LLBG ####[facility]ORATORYCLIA [id number] [address] [place] Chloride [Moles/Vol] 103 mmol/L Normal 102-109 [facility] Comment on above: Order Comment: Speci men Type: ARTERIAL BLOOD SPECIMENOrdering Facility: [facility] Address: [address] [place] [address] Performed By: #### A LLBG ####[facility]ORATORYCLIA [id number] [address] [place] CO2 (Bld) [Partial pressure] 62 mm Hg High 36-46 [facility] Comment on above: Order Comment: Speci men Type: ARTERIAL BLOOD SPECIMENOrdering Facility: [facility] Address: [address] [place] [address] Performed By: #### A LLBG ####[facility]ORATORYCLIA [id number] [address] [place] CO2 adjusted to patient's actual temperature (Bld) [Partial pressure] 61 mmHg High 36-46 [facility] Comment on above: Order Comment: Speci men Type: ARTERIAL BLOOD SPECIMENOrdering Facility: [facility] Address: [address] [place] [address] Performed By: #### A LLBG ####[facility]ORATORYCLIA [id number] [place] [address] [place] Glucose [Mass/Vol] 114 mg/dL High 60-105 [facility] Comment on above: Order Comment: Speci men Type: ARTERIAL BLOOD SPECIMENOrdering Facility: [facility] Address: [address] [place] [address] Performed By: #### A LLBG ####[facility]ORATORYCLIA [id number] [address] [place] HCO3 (Bld) [Moles/Vol] 34 mmol/L High 22-26 [facility] Comment on above: Order Comment: Speci men Type: ARTERIAL BLOOD SPECIMENOrdering Facility: [facility] Address: [address] [place] [address] Performed By: #### A LLBG ####[facility]ORATORYCLIA [id number] [address] [place] Hematocrit (Bld) [Volume fraction] 27.0 % Low 36.0-46.0 [facility] Comment on above: Order Comment: Speci men Type: ARTERIAL BLOOD SPECIMENOrdering Facility: [facility] Address: [address] [place] [address] Performed By: #### A LLBG ####[facility]ORATORYCLIA [id number] [address] [place] Hemoglobin (Bld) [Mass/Vol] 8.7 g/dL Low 11.5-15.5 [facility] Comment on above: Order Comment: Speci men Type: ARTERIAL BLOOD SPECIMENOrdering Facility: [facility] Address: [address] [place] [address] Performed By: #### A LLBG ####[facility]ORATORYCLIA [id number] [address] [place] Lactate [Moles/Vol] 0.5 mmol/L Normal 0.5-2.2 [facility] Comment on above: Order Comment: Speci men Type: ARTERIAL BLOOD SPECIMENOrdering Facility: [facility] Address: [address] [place] [address] Performed By: #### A LLBG ####[facility]ORATORYCLIA [id number] [address] [place] Methemoglobin (Bld) [Mass fraction] 1.3 % Normal 0.0-1.5 [facility] Comment on above: Order Comment: Speci men Type: ARTERIAL BLOOD SPECIMENOrdering Facility: [facility] Address: [address] [place] [address] Performed By: #### A LLBG ####[facility] LABORATORYCLIA [id number] [address] [place] O2 THERAPY Positive Normal [facility] Comment on above: Order Comment: Speci men Type: ARTERIAL BLOOD SPECIMENOrdering Facility: [facility] Address: [address] [place] [address] Performed By: #### A LLBG ####[facility]ORATORYCLIA [id number] [address] Oxygen (Bld) [Partial pressure] 108 mm Hg High 85-95 [facility] Comment on above: Order Comment: Speci men Type: ARTERIAL BLOOD SPECIMENOrdering Facility: [facility] Address: [address] [place] [address] Performed By: #### A LLBG ####[facility]ORATORYCLIA [id number] [address] Oxygen adjusted to patient's actual temperature (Bld) [Partial pressure] 106 mmHg High 85-95 [facility] Comment on above: Order Comment: Speci men Type: ARTERIAL BLOOD SPECIMENOrdering Facility: [facility] Address: [address] [place] [address] Performed By: #### A LLBG ####[facility]ORATORYCLIA [id number] [address] [place] Oxyhemoglobin (BldA) [Mass fraction] 96 % Normal 95-98 [facility] Comment on above: Order Comment: Speci men Type: ARTERIAL BLOOD SPECIMENOrdering Facility: [facility] Address: [address] [place] [address] Performed By: #### A LLBG ####[facility]ORATORYCLIA [id number] [address] [place] pH (Bld) 7.35 [pH] Normal 7.35-7.45 [facility] Comment on above: Order Comment: Speci men Type: ARTERIAL BLOOD SPECIMENOrdering Facility: [facility] Address: [address] [place] [address] Performed By: #### A LLBG ####[facility]ORATORYCLIA [id number] [address] pH adjusted to patient's actual temperature (Bld) 7.36 Normal 7.35-7.45 [facility] Comment on above: Order Comment: Speci men Type: ARTERIAL BLOOD SPECIMENOrdering Facility: [facility] Address: [address] [place] [address] Performed By: #### A LLBG ####[facility]ORATORYCLIA [id number] [address] [place] Potassium [Moles/Vol] 3.5 mmol/L Normal 3.5-5.0 [facility] Comment on above: Order Comment: Speci men Type: ARTERIAL BLOOD SPECIMENOrdering Facility: [facility] Address: [address] [place] [address] Performed By: #### A LLBG ####[facility]ORATORYCLIA [id number] [address] [place] Sodium [Moles/Vol] 141 mmol/L Normal 136-144 [facility] Comment on above: Order Comment: Speci men Type: ARTERIAL BLOOD SPECIMENOrdering Facility: [facility] Address: [address] [place] [address] Performed By: #### A LLBG ####[facility]ORATORYCLIA [id number] [place] [address] [place] Basic metabolic 2000 panelon 08-07-2023 Anion gap [Moles/Vol] 6 mmol/L Low 9-18 [facility] Comment on above: Order Comment: Speci men Type: BLOOD SPECIMENOrdering Facility: [facility] Address: [address] [place] [address] Performed By: #### 2 4321-2, 2777-1, 46940-4 ####[facility]ORATORYCLIA [id number] [place] [address] [place] Calcium [Mass/Vol] 8.7 mg/dL Normal 8.5-10.2 [facility] Comment on above: Order Comment: Speci men Type: BLOOD SPECIMENOrdering Facility: [facility] Address: [address] [place] [address] Performed By: #### 2 4321-2, 2776-07, ####[facility]ORATORYCLIA [id number] [place] [address] [place] Chloride [Moles/Vol] 104 mmol/L Normal 97-105 [facility] Comment on above: Order Comment: Speci men Type: BLOOD SPECIMENOrdering Facility: [facility] Address: [address] [place] [address] Performed By: #### 2 4321-2, 2776-07, ####[facility]ORATORYCLIA [id number] [address] [place] CO2 [Moles/Vol] 33 mmol/L High 22-30 [facility] Comment on above: Order Comment: Speci men Type: BLOOD SPECIMENOrdering Facility: [facility] Address: [address] [place] [address] Performed By: #### 2 4321-2, 2776-07, ####[facility]ORATORYCLIA [id number] [place] [address] [place] Creatinine [Mass/Vol] 0.58 mg/dL Normal 0.58-0.96 [facility] Comment on above: Order Comment: Speci men Type: BLOOD SPECIMENOrdering Facility: [facility] Address: [address] [place] [address] Performed By: #### 2 4321-2, 2776-07, ####[facility]ATORYCLIA [id number] [address] [place] Creatinine and Glomerular filtration rate.predicted panel (S/P/Bld) 99 mL/min/1.73m??? Normal >=60 [facility] Comment on above: Order Comment: Kaela burns Type: BLOOD SPECIMENOrdering Facility: [facility] Address: [address] [place] [address] Result Comment: Sierra mated Glomerular Filtration Rate (eGFR) is calculated using the 2020 CKD-EPI creatinine equation. This equation utilizes serum creatinine, sex, and age as parameters. The creatinine assay has traceable calibration to isotope dilution-mass spectrometry. Refer to KDIGO guidelines for clinical interpretation. In patients with unstable renal function, e.g. those with acute kidney injury, the eGFR may not accurately reflect actual GFR. Performed By: #### 2 4321-2, 2777-1, ####[facility]CL[facility] [id number] [place] [address] [place] Glucose [Mass/Vol] 117 mg/dL High 74-99 [facility] Comment on above: Order Comment: Kaela burns Type: BLOOD SPECIMENOrdering Facility: [facility] Address: [address] [place] [address] Result Comment: The [place] [employer] (ADA) provides guidance for cutoff values for fasting glucose and random glucose. The ADA defines fasting as no caloric intake for at least 8 hours. Fasting plasma glucose results between 100 to 125 [...] Standards of Medical Care in Diabetes 2016, [place] [employer]. Diabetes Care. 2016.39(Suppl 1). Performed By: #### 2 4321-2, 2777-1, ####[facility]ORATORYCLIA [id number] [place] [id number] [place] Potassium [Moles/Vol] 3.6 mmol/L Low 3.7-5.1 [facility] Comment on above: Order Comment: Kaela burns Type: BLOOD SPECIMENOrdering Facility: [facility] Address: [address] [place] [address] Performed By: #### 2 4321-2, 27701-02, ####[facility]ORATORYCLIA [id number] [place] [address] [place] [facility] Sodium [Moles/Vol] 143 mmol/L Normal 136-144 [facility] Comment on above: Order Comment: Speci men Type: BLOOD SPECIMENOrdering Facility: [facility] Address: [address] [place] [address] Performed By: #### 2 4321-2, 2776-07, ####[facility]ORATORYCLIA [id number] [place] [id number] [place] [facility] Urea nitrogen [Mass/Vol] 15 mg/dL Normal 7-21 [facility] Comment on above: Order Comment: Speci men Type: BLOOD SPECIMENOrdering Facility: [facility] Address: [address] [place] [address] Performed By: #### 2 4321-2, 2776-07, ####[facility]ORATORYCLIA [id number] [address] [place] CBC panel Auto (Bld)on 08-07 Erythrocyte distribution width (RBC) [Ratio] 13.2 % Normal 11.5-15.0 [facility] Comment on above: Order Comment: Speci men Type: BLOOD SPECIMENOrdering Facility: [facility] Address: [address] [place] [address] Performed By: #### 5 8410-2 ####[facility]ORATORYCLIA [id number] [place] [id number] [place] [facility] Hematocrit (Bld) [Volume fraction] 28.1 % Low 36.0-46.0 [facility] Comment on above: Order Comment: Speci men Type: BLOOD SPECIMENOrdering Facility: [facility] Address: [address] [place] [address] Performed By: #### 5 8410-2 ####[facility]ORATORYCLIA [id number] [address] Hemoglobin (Bld) [Mass/Vol] 8.5 g/dL Low 11.5-15.5 [facility] Comment on above: Order Comment: Speci men Type: BLOOD SPECIMENOrdering Facility: [facility] Address: [address] [place] [address] Performed By: #### 5 8410-2 ####[facility]ORATORYCLIA [id number] [address] MCH (RBC) [Entitic mass] 28.9 pg Normal 26.0-34.0 [facility] Comment on above: Order Comment: Speci men Type: BLOOD SPECIMENOrdering Facility: [facility] Address: [address] [place] [address] Performed By: #### 5 8410-2 ####[facility]ORATORYCLIA [id number] [address] MCHC (RBC) [Mass/Vol] 30.2 g/dL Low 30.5-36.0 [facility] Comment on above: Order Comment: Speci men Type: BLOOD SPECIMENOrdering Facility: [facility] Address: [address] [place] [address] Performed By: #### 5 8410-2 ####[facility]ORATORYCLIA [id number] [address] MCV (RBC) [Entitic vol] 95.6 fL Normal 80.0-100.0 [facility] Comment on above: Order Comment: Speci men Type: BLOOD SPECIMENOrdering Facility: [facility] Address: [address] [place] [address] Performed By: #### 5 8410-2 ####[facility]ORATORYCLIA [id number] [address] Nucleated RBC (Bld) [#/Vol] 10*3/uL Normal <0.01 [facility] Comment on above: Order Comment: Speci men Type: BLOOD SPECIMENOrdering Facility: [facility] Address: [address] [place] [address] Performed By: #### 5 8410-2 ####[facility]ORATORYCLIA [id number] [address] [place] [facility] Platelet mean volume (Bld) [Entitic vol] 10.3 fL Normal 9.0-12.7 [facility] Comment on above: Order Comment: Speci men Type: BLOOD SPECIMENOrdering Facility: [facility] Address: [address] [place] [address] Performed By: #### 5 8410-2 ####[facility]ORATORYCLIA [id number] [address] [place] Platelets (Bld) [#/Vol] 103 10*3/uL Low 150-400 [facility] Comment on above: Order Comment: Speci men Type: BLOOD SPECIMENOrdering Facility: [facility] Address: [address] [place] [address] Performed By: #### 5 8410-2 ####[facility]ATORYCLIA [id number] [address] [place] RBC (Bld) [#/Vol] 2.94 10*6/uL Low 3.90-5.20 [facility] Comment on above: Order Comment: Speci men Type: BLOOD SPECIMENOrdering Facility: [facility] Address: [address] [place] [address] Performed By: #### 5 8410-2 ####[facility]ORATORYCLIA [id number] [address] [place] WBC (Bld) [#/Vol] 4.94 10*3/uL Normal 3.70-11.00 [facility] Comment on above: Order Comment: Speci men Type: BLOOD SPECIMENOrdering Facility: [facility] Address: [address] [place] [address] Performed By: #### 5 8410-2 ####[facility] LABORATORYCLIA [id number] [address] OF [facility] CONSULT PROGon 08-07-2023 CONSULT PROG HNO ID: [id number] Author: MARÍA ORTA MD Service: General Surgery Author Type: Physician Type: Consult Progress Note Filed: 08/07/2023 09:59 Note Text: INPATIENT SICU PROGRESS NOTE SERVICE DATE: 08/07/2023 SERVICE TIME: 7:38 AM Subjective NAEON. Patient looks better this AM. She denies pain, nausea or vomiting or shortness of breath. She is alert and responds to commands Current Facility-Administered Medications Medication Dose Route Frequency NaCl 0.9% iv flush bag 20 mL [...] 4 mg INTRAVENOUS q 6 H PRN senna-docusate 8.6-50 mg [...] 2 mg INTRAVENOUS q 6 H PRN Objective VITAL SIGNS BP 98/76 Pulse 90 Temp (Src) 97.7 (Oral) Resp 19 Ht 5' 2.992 (1.60m) Wt 143 lb 1.3 oz (64.9kg) SpO2 100% LMP 02/11/2006 BMI 25.35 kg/(m2). O2 Therapy: BiLevel Positive Airway Pressure, Liters: 30, %FIO2: 30 Temp (24hrs), Av.6 ?C (97.9 ?F), Min:36.5 ?C (97.7 ?F), Max:36.8 ?C (98.2 ?F) Date 08/06/23 07 - 08/07/23 0659 08/07/23 07 - 08/08/23 0659 Shift 7581-0063 3824-4378 8826-9921 24 Hour Total 3067-9458 1262-1867 2857-2046 24 Hour Total INTAKE PO 100 200 300 PO 100 200 300 IV 225 307 856 7119 Volume (mL) (dextrose 5% in NaCl 0.9% iv infusion) 225 164 108 9768 Shift Total 325 4376 869 2991 OUTPUT Urine 0 300 400 700 Output ( External Collection Device 08/06/23 0730 [facility]) 0 300 400 700 # of BMs Number of BMs 0 x 0 x Shift Total 0 300 400 700 Weight (kg) 64.2 64.2 64.9 64.9 64.9 64.9 64.9 64.9 PHYSICAL EXAM: GENERAL: Alert. On BiPAP NEURO: AANDOx3. No focal neurologic deficits. Sensation grossly intact. HEENT: Normocephalic. Scalp laceration repaired with 4 arturo LUNGS: Unlabored breathing on BiPAP. Equal excursion bilaterally. CARDIAC: Regular rate, on tele, Good perfusion throughout. ABDOMEN: Soft, non-tender, non-distended. No rebound or guarding. EXTREMITIES: REGALADO. No deformities. SKIN: No obvious jaundice or pallor. DATA: Diagnostic tests reviewed for today's visit: Recent Labs 08/07/2321708/06/23201008/06/2392308/06/23600 PH 7.35 7.36 7.23* 7.25* PCO2 62* 60* 98* 89* PO2 108* 72* <40* 179* BE 7* 7* 10* 9* HCO3 34* 33* 39* 38* O2HB 96 93* 37* 97 COHB 1.7 1.9 0.9 0.9 MHGB 1.3 1.1 1.2 1.3 PHTC 7.36 7.36 -- 7.26* PCO2T 61* 60* -- 88* PO2T 106* 71* -- 178* O2AD -- -- 30 45 Recent Labs 08/07/2321708/06/23201008/06/2392308/06/23 0608/06/23 0508/05/23220908/05/232128 CREAT 0.58 -- -- -- -- -- 0.68 BUN 15 -- -- -- -- -- 17 NA 143 -- -- -- -- -- 144 K 3.6* -- -- -- -- -- 4.6 CHLOR 104 -- -- -- -- -- 101 CO2 33* -- -- -- -- -- 39* ANION 6* -- -- -- -- -- 4* GLUC 117* -- -- -- -- -- 87 CA 8.7 -- -- -- -- -- 8.9 P 1.9* -- -- -- -- -- -- MG 1.7 -- -- -- -- -- -- ALB -- -- -- -- -- -- 4.0 AST -- -- -- -- -- -- 18 ALT -- -- -- -- -- -- 13 ALKPHOS -- -- -- -- -- -- 82 TBILI -- -- -- -- -- -- <0.2* WBC 4.94 -- -- -- -- -- 8.13 HB 8.5* -- -- -- -- -- 10.3* HCT 28.1* -- -- -- -- -- 35.0* PLT 103* -- -- -- -- -- 147* LACT 0.5 0.4* 0.7 0.5 0.5 < > -- < > = values in this interval not displayed. Assessment AND Plan ACTIVE PROBLEM LIST Panlobular Emphysema (Hcc) Other Abnormal Blood Chemistry Benign Neoplasm of Colon Nonspecific Abnormal Finding in Stool Contents Other Affections of Shoulder Region, Not Elsewhere Classified Carcinoma in Situ of Breas (more content not included)... Normal [facility] Gas and Carbon monoxide pane l (BldV)on 08-07-2023 Base excess Calc (BldV) [Moles/Vol] 5 mmol/L High 0-2 [facility] Comment on above: Order Comment: Speci men Type: VENOUS BLOOD SPECIMENOrdering Facility: [facility] Address: [address] [place] [address] Performed By: #### 2 4344-4 ####[facility] LABORATORYCLIA [id number] [address] [place] Body temperature 98.6 [degF] Normal [facility] Comment on above: Order Comment: Speci men Type: VENOUS BLOOD SPECIMENOrdering Facility: [facility] Address: [address] [place] [address] Performed By: #### 2 4344-4 ####[facility] LABORATORYCLIA [id number] [address] [place] Calcium.ionized (BldV) [Mass/Vol] 1.15 mmol/L Normal 1.08-1.30 [facility] Comment on above: Order Comment: Speci men Type: VENOUS BLOOD SPECIMENOrdering Facility: [facility] Address: [address] [place] [address] Performed By: #### 2 4344-4 ####[facility] LABORATORYCLIA [id number] [address] Calcium.ionized adjusted to pH 7.4 (BldA) [Moles/Vol] 1.08 mmol/L Normal 1.08-1.30 [facility] Comment on above: Order Comment: Speci men Type: VENOUS BLOOD SPECIMENOrdering Facility: [facility] Address: [address] [place] [address] Performed By: #### 2 4344-4 ####[facility] LABORATORYCLIA [id number] [address] [place] Carboxyhemoglobin (BldV) [Mass fraction] 0.8 % Normal 0.0-2.0 [facility] Comment on above: Order Comment: Speci men Type: VENOUS BLOOD SPECIMENOrdering Facility: [facility] Address: [address] [place] [address] Result Comment: Carb oxyhemoglobin Reference Range for Smokers: 2.0-8.0% Performed By: #### 2 4344-4 ####[facility] LABORATORYCLIA [id number] [place] [address] [place] Chloride [Moles/Vol] 105 mmol/L Normal 102-109 [facility] Comment on above: Order Comment: Speci men Type: VENOUS BLOOD SPECIMENOrdering Facility: [facility] Address: [address] [place] [address] Performed By: #### 2 4344-4 ####[facility] LABORATORYCLIA [id number] [address] [place] CO2 (BldV) [Partial pressure] 72 mm[Hg] High 42-55 [facility] Comment on above: Order Comment: Speci men Type: VENOUS BLOOD SPECIMENOrdering Facility: [facility] Address: [address] [place] [address] Performed By: #### 2 4344-4 ####[facility] LABORATORYCLIA [id number] [place] [address] [place] Glucose [Mass/Vol] 109 mg/dL High 60-105 [facility] Comment on above: Order Comment: Speci men Type: VENOUS BLOOD SPECIMENOrdering Facility: [facility] Address: [address] [place] [address] Performed By: #### 2 4344-4 ####[facility]ORATORYCLIA [id number] [place] [address] [place] HCO3 (Bld) [Moles/Vol] 33 mmol/L High 24-28 [facility] Comment on above: Order Comment: Speci men Type: VENOUS BLOOD SPECIMENOrdering Facility: [facility] Address: [address] [place] [address] Performed By: #### 2 4344-4 ####[facility] LABORATORYCLIA [id number] [address] [place] Hematocrit (Bld) [Volume fraction] 29.7 % Low 36.0-46.0 [facility] Comment on above: Order Comment: Speci men Type: VENOUS BLOOD SPECIMENOrdering Facility: [facility] Address: [address] [place] [address] Performed By: #### 2 4344-4 ####[facility] LABORATORYCLIA [id number] [place] [address] [place] Hemoglobin (Bld) [Mass/Vol] 9.6 g/dL Low 11.5-15.5 [facility] Comment on above: Order Comment: Speci men Type: VENOUS BLOOD SPECIMENOrdering Facility: [facility] Address: [address] [place] [address] Performed By: #### 2 4344-4 ####[facility] LABORATORYCLIA [id number] [place] [address] [place] Lactate [Moles/Vol] 1.9 mmol/L Normal 0.5-2.2 [facility] Comment on above: Order Comment: Speci men Type: VENOUS BLOOD SPECIMENOrdering Facility: [facility] Address: [address] [place] [address] Performed By: #### 2 4344-4 ####[facility]ORATORYCLIA [id number] [address] [place] LITERS 4 Liters/min Normal [facility] Comment on above: Order Comment: Speci men Type: VENOUS BLOOD SPECIMENOrdering Facility: [facility] Address: [address] [place] [address] Performed By: #### 2 4344-4 ####[facility]ORATORYCLIA [id number] [place] [id number] [place] Methemoglobin (Bld) [Mass fraction] 0.7 % Normal 0.0-1.5 [facility] Comment on above: Order Comment: Speci men Type: VENOUS BLOOD SPECIMENOrdering Facility: [facility] Address: [address] [place] [address] Performed By: #### 2 4344-4 ####[facility]ORATORYCLIA [id number] [address] [place] O2 THERAPY NC = Nasal Cannula Normal [facility] Comment on above: Order Comment: Speci men Type: VENOUS BLOOD SPECIMENOrdering Facility: [facility] Address: [address] [place] [address] Performed By: #### 2 4344-4 ####[facility]ORATORYCLIA [id number] [address] [place] Oxygen (BldV) [Partial pressure] mm[Hg] Normal 35-45 [facility] Comment on above: Order Comment: Speci men Type: VENOUS BLOOD SPECIMENOrdering Facility: [facility] Address: [address] [place] [address] Performed By: #### 2 4344-4 ####[facility]ORATORYCLIA [id number] [address] [place] Oxygen saturation in Venous blood 52 % Low 60-85 [facility] Comment on above: Order Comment: Speci men Type: VENOUS BLOOD SPECIMENOrdering Facility: [facility] Address: [address] [place] [address] Performed By: #### 2 4344-4 ####[facility]ORATORYCLIA [id number] [address] [place] Oxyhemoglobin (BldV) [Mass fraction] 51 % Low 60-85 [facility] Comment on above: Order Comment: Speci men Type: VENOUS BLOOD SPECIMENOrdering Facility: [facility] Address: [address] [place] [address] Performed By: #### 2 4344-4 ####[facility] LABORATORYCLIA [id number] [place] [address] [place] [facility] pH (BldV) 7.28 [pH] Low 7.32-7.42 [facility] Comment on above: Order Comment: Speci men Type: VENOUS BLOOD SPECIMENOrdering Facility: [facility] Address: [address] [place] [address] Performed By: #### 2 4344-4 ####[facility] LABORATORYCLIA [id number] [place] [address] [place] Potassium [Moles/Vol] 4.3 mmol/L Normal 3.5-5.0 [facility] Comment on above: Order Comment: Speci men Type: VENOUS BLOOD SPECIMENOrdering Facility: [facility] Address: [address] [place] [address] Performed By: #### 2 4344-4 ####[facility] LABORATORYCLIA [id number] [address] STATES OF [facility] Sodium [Moles/Vol] 142 mmol/L Normal 136-144 [facility] Comment on above: Order Comment: Speci men Type: VENOUS BLOOD SPECIMENOrdering Facility: [facility] Address: [address] [place] [address] Performed By: #### 2 4344-4 ####[facility] LABORATORYCLIA [id number] [place] [address] [place] Magnesium SerPl-mCncon 08-07 Magnesium [Mass/Vol] 1.7 mg/dL Normal 1.7-2.3 [facility] Comment on above: Order Comment: Speci men Type: BLOOD SPECIMENOrdering Facility: [facility] Address: [address] [place] [address] Performed By: #### 2 4321-2, 2777-1, 03721-9 ####[facility] LABORATORYCLIA [id number] [address] [place] Phenytoin Free SerPl-mCncon 08-07-2023 Phenytoin Free [Mass/Vol] <0.4 Low 1.0-2.0 [facility] Comment on above: Order Comment: Kaela burns Type: BLOOD SPECIMENOrdering Facility: [facility] Address: [address] [place] [address] Result Comment: Refe rence ranges and high/low indicator flags are provided as general guidelines only. The treating physician must determine appropriate target levels/dosing based on the specific clinical situation. Result rechecked. This test was developed and its performance characteristics determined by [facility] Pathology and Laboratory Medicine [place] ([facility]). It has not been cleared or approved by the FDA. -[facility] is regulated under CLIA as qualified to perform high-complexity testing. This test is used for clinical purposes. It should not be regarded as investigational or for research. Performed By: #### 3 969-3 ####[facility] LABCLIA [id number] [place] [id number] [place] Phosphate SerPl-mCncon 08-07 Phosphate [Mass/Vol] 5.9 mg/dL High 2.7-4.8 [facility] Comment on above: Order Comment: Kaela burns Type: BLOOD SPECIMENOrdering Facility: [facility] Address: [address] [place] [address] Performed By: #### 2 777-1 ####[facility] LABORATORYCLIA [id number] [address] [place] Phosphate [Mass/Vol] 1.9 mg/dL Low 2.7-4.8 [facility] Comment on above: Order Comment: Kaela burns Type: BLOOD SPECIMENOrdering Facility: [facility] Address: [address] [place] [address] Performed By: #### 2 4321-2, 2777-1, 08010-3 ####[facility] LABORATORYCLIA [id number] [address] [place] ALLIED HEALTHon 08-06-2023 ALLIED HEALTH HNO ID: [id number] Author: ?, ?, ? Service: Infection Prevention Author Type: ? Type: Allied Health Filed: 08/06/2023 14:14 Note Text: INFECTION PREVENTION NOTE Admission Date: 08/05/2023 For RSV, isolation remains in place for the duration of illness and the patient is asymptomatic. In reading the progress notes, and in review with the care team, this patient meets criteria to have isolation D/C. SIGNATURE: Kera Valle PATIENT NAME: Luiza May DATE: August 06, 2023 TIME: 1:40 PM PAGER/CONTACT #: Infection Prevention, [id number] Infection Prevention after hours/weekend pager: [phone] Normal [facility] HNO ID: [id number] Author: ERICKA ELMORE RT(R) Service: Radiology Author Type: Technologist Type: [facility] Filed: 08/06/2023 07:22 Note Text: Radiology Service Progress Note PATIENT NAME: Luiza May DATE OF SERVICE: August 06, 2023 TIME: 7:20 AM PATIENT IDENTITY VERIFICATION COMPLETED USING TWO (2) IDENTIFIERS: Name and Date of confirmed by patient verbally and Name and Date of confirmed by identification band. FALL SCREENING: Has the patient had 2 falls in the last year or 1 fall with injury or currently using an Ambulatory Assistive Device (Walker, Cane, Wheelchair, Crutches, etc.)? Emergency Room Patient: Screened in ED PATIENT GENDER DATA: Female. status: : No status: NO. PATIENT RELEVANT IMPLANT DATA REVIEWED: Not Applicable PATIENT PRESENTS WITH AN IMPLANTABLE OR ATTACHED POSTAL SERVICE CLERK: No RADIOLOGY DEPARTMENT: CT; Exam(s) Completed: Brain PERIPHERAL IV DATA: Not applicable SIGNED BY: Ericka Elmore RT(R) August 06, 2023 7:20 AM Normal [facility] ARTERIAL BLOOD GASESon 08-06 Base excess Calc (Bld) [Moles/Vol] 7 mmol/L High 0-2 [facility] Comment on above: Order Comment: Speci men Type: ARTERIAL BLOOD SPECIMENOrdering Facility: [facility] Address: [address] [place] [address] Performed By: #### A LLBG ####[facility] LABORATORYCLIA [id number] [address] Body temperature 98.42 [degF] Normal [facility] Comment on above: Order Comment: Speci men Type: ARTERIAL BLOOD SPECIMENOrdering Facility: [facility] Address: [address] [place] [address] Performed By: #### A LLBG ####[facility] LABORATORYCLIA [id number] [address] Calcium.ionized (BldV) [Mass/Vol] 1.20 mmol/L Normal 1.08-1.30 [facility] Comment on above: Order Comment: Speci men Type: ARTERIAL BLOOD SPECIMENOrdering Facility: [facility] Address: [address] [place] [address] Performed By: #### A LLBG ####[facility] LABORATORYCLIA [id number] [address] Calcium.ionized adjusted to pH 7.4 (BldA) [Moles/Vol] 1.18 mmol/L Normal 1.08-1.30 [facility] Comment on above: Order Comment: Speci men Type: ARTERIAL BLOOD SPECIMENOrdering Facility: [facility] Address: [address] [place] [address] Performed By: #### A LLBG ####[facility] LABORATORYCLIA [id number] [address] OF [facility] Carboxyhemoglobin (BldA) [Mass fraction] 1.9 % Normal 0.0-2.0 [facility] Comment on above: Order Comment: Speci men Type: ARTERIAL BLOOD SPECIMENOrdering Facility: [facility] Address: [address] [place] [address] Result Comment: Carb oxyhemoglobin Reference Range for Smokers: 2.0-8.0% Performed By: #### A LLBG ####[facility] LABORATORYCLIA [id number] [address] [place] Chloride [Moles/Vol] 103 mmol/L Normal 102-109 [facility] Comment on above: Order Comment: Speci men Type: ARTERIAL BLOOD SPECIMENOrdering Facility: [facility] Address: [address] [place] [address] Performed By: #### A LLBG ####[facility]ORATORYCLIA [id number] [address] [place] CO2 (Bld) [Partial pressure] 60 mm Hg High 36-46 [facility] Comment on above: Order Comment: Speci men Type: ARTERIAL BLOOD SPECIMENOrdering Facility: [facility] Address: [address] [place] [address] Performed By: #### A LLBG ####[facility] LABORATORYCLIA [id number] [address] CO2 adjusted to patient's actual temperature (Bld) [Partial pressure] 60 mmHg High 36-46 [facility] Comment on above: Order Comment: Speci men Type: ARTERIAL BLOOD SPECIMENOrdering Facility: [facility] Address: [address] [place] [address] Performed By: #### A LLBG ####[facility] LABORATORYCLIA [id number] [address] [place] Glucose [Mass/Vol] 145 mg/dL High 60-105 [facility] Comment on above: Order Comment: Speci men Type: ARTERIAL BLOOD SPECIMENOrdering Facility: [facility] Address: [address] [place] [address] Performed By: #### A LLBG ####[facility] LABORATORYCLIA [id number] [address] [place] HCO3 (Bld) [Moles/Vol] 33 mmol/L High 22-26 [facility] Comment on above: Order Comment: Speci men Type: ARTERIAL BLOOD SPECIMENOrdering Facility: [facility] Address: [address] [place] [address] Performed By: #### A LLBG ####[facility] LABORATORYCLIA [id number] [address] [place] Hematocrit (Bld) [Volume fraction] 28.4 % Low 36.0-46.0 [facility] Comment on above: Order Comment: Speci men Type: ARTERIAL BLOOD SPECIMENOrdering Facility: [facility] Address: [address] [place] [address] Performed By: #### A LLBG ####[facility] LABORATORYCLIA [id number] [address] [place] Hemoglobin (Bld) [Mass/Vol] 9.2 g/dL Low 11.5-15.5 [facility] Comment on above: Order Comment: Speci men Type: ARTERIAL BLOOD SPECIMENOrdering Facility: [facility] Address: [address] [place] [address] Performed By: #### A LLBG ####[facility] LABORATORYCLIA [id number] [address] Lactate [Moles/Vol] 0.4 mmol/L Low 0.5-2.2 [facility] Comment on above: Order Comment: Speci men Type: ARTERIAL BLOOD SPECIMENOrdering Facility: [facility] Address: [address] [place] [address] Performed By: #### A LLBG ####[facility]ORATORYCLIA [id number] [address] Methemoglobin (Bld) [Mass fraction] 1.1 % Normal 0.0-1.5 [facility] Comment on above: Order Comment: Speci men Type: ARTERIAL BLOOD SPECIMENOrdering Facility: [facility] Address: [address] [place] [address] Performed By: #### A LLBG ####[facility]ORATORYCLIA [id number] [address] O2 THERAPY Positive Normal [facility] Comment on above: Order Comment: Speci men Type: ARTERIAL BLOOD SPECIMENOrdering Facility: [facility] Address: [address] [place] [address] Performed By: #### A LLBG ####[facility] LABORATORYCLIA [id number] [place] [address] [place] Oxygen (Bld) [Partial pressure] 72 mm Hg Low 85-95 [facility] Comment on above: Order Comment: Speci men Type: ARTERIAL BLOOD SPECIMENOrdering Facility: [facility] Address: [address] [place] [address] Performed By: #### A LLBG ####[facility]ORATORYCLIA [id number] [address] [place] Oxygen adjusted to patient's actual temperature (Bld) [Partial pressure] 71 mmHg Low 85-95 [facility] Comment on above: Order Comment: Speci men Type: ARTERIAL BLOOD SPECIMENOrdering Facility: [facility] Address: [address] [place] [address] Performed By: #### A LLBG ####[facility]ORATORYCLIA [id number] [address] [place] Oxyhemoglobin (BldA) [Mass fraction] 93 % Low 95-98 [facility] Comment on above: Order Comment: Speci men Type: ARTERIAL BLOOD SPECIMENOrdering Facility: [facility] Address: [address] [place] [address] Performed By: #### A LLBG ####[facility] LABORATORYCLIA [id number] [place] [address] [place] pH (Bld) 7.36 [pH] Normal 7.35-7.45 [facility] Comment on above: Order Comment: Speci men Type: ARTERIAL BLOOD SPECIMENOrdering Facility: [facility] Address: [address] [place] [address] Performed By: #### A LLBG ####[facility]ORATORYCLIA [id number] [address] [place] pH adjusted to patient's actual temperature (Bld) 7.36 Normal 7.35-7.45 [facility] Comment on above: Order Comment: Speci men Type: ARTERIAL BLOOD SPECIMENOrdering Facility: [facility] Address: [address] [place] [address] Performed By: #### A LLBG ####[facility]ORATORYCLIA [id number] [place] [address] [place] Potassium [Moles/Vol] 4.1 mmol/L Normal 3.5-5.0 [facility] Comment on above: Order Comment: Speci men Type: ARTERIAL BLOOD SPECIMENOrdering Facility: [facility] Address: [address] [place] [address] Performed By: #### A LLBG ####[facility] LABORATORYCLIA [id number] [place] [address] [place] Sodium [Moles/Vol] 140 mmol/L Normal 136-144 [facility] Comment on above: Order Comment: Speci men Type: ARTERIAL BLOOD SPECIMENOrdering Facility: [facility] Address: [address] [place] [address] Performed By: #### A LLBG ####[facility] LABORATORYCLIA [id number] [place] [address] [place] Base excess Calc (Bld) [Moles/Vol] 10 mmol/L High 0-2 [facility] Comment on above: Order Comment: Speci men Type: ARTERIAL BLOOD SPECIMENOrdering Facility: [facility] Address: [address] [place] [address] Performed By: #### A LLBG ####[facility]ORATORYCLIA [id number] [address] [place] Body temperature 98.6 [degF] Normal [facility] Comment on above: Order Comment: Speci men Type: ARTERIAL BLOOD SPECIMENOrdering Facility: [facility] Address: [address] [place] [address] Performed By: #### A LLBG ####[facility]ORATORYCLIA [id number] [address] [place] Calcium.ionized (BldV) [Mass/Vol] 1.22 mmol/L Normal 1.08-1.30 [facility] Comment on above: Order Comment: Speci men Type: ARTERIAL BLOOD SPECIMENOrdering Facility: [facility] Address: [address] [place] [address] Performed By: #### A LLBG ####[facility] LABORATORYCLIA [id number] [place] [address] [place] Calcium.ionized adjusted to pH 7.4 (BldA) [Moles/Vol] 1.11 mmol/L Normal 1.08-1.30 [facility] Comment on above: Order Comment: Speci men Type: ARTERIAL BLOOD SPECIMENOrdering Facility: [facility] Address: [address] [place] [address] Performed By: #### A LLBG ####[facility] LABORATORYCLIA [id number] [address] OF [facility] Carboxyhemoglobin (BldA) [Mass fraction] 0.9 % Normal 0.0-2.0 [facility] Comment on above: Order Comment: Speci men Type: ARTERIAL BLOOD SPECIMENOrdering Facility: [facility] Address: [address] [place] [address] Result Comment: Carb oxyhemoglobin Reference Range for Smokers: 2.0-8.0% Performed By: #### A LLBG ####[facility]ORATORYCLIA [id number] [address] [place] Chloride [Moles/Vol] 102 mmol/L Normal 102-109 [facility] Comment on above: Order Comment: Speci men Type: ARTERIAL BLOOD SPECIMENOrdering Facility: [facility] Address: [address] [place] [address] Performed By: #### A LLBG ####[facility]ORATORYCLIA [id number] [address] [place] CO2 (Bld) [Partial pressure] 98 mm Hg High 36-46 [facility] Comment on above: Order Comment: Speci men Type: ARTERIAL BLOOD SPECIMENOrdering Facility: [facility] Address: [address] [place] [address] Performed By: #### A LLBG ####[facility] LABORATORYCLIA [id number] [address] [place] FIO2 30 % Normal [facility] Comment on above: Order Comment: Speci men Type: ARTERIAL BLOOD SPECIMENOrdering Facility: [facility] Address: [address] [place] [address] Performed By: #### A LLBG ####[facility] LABORATORYCLIA [id number] [place] [address] [place] Glucose [Mass/Vol] 110 mg/dL High 60-105 [facility] Comment on above: Order Comment: Speci men Type: ARTERIAL BLOOD SPECIMENOrdering Facility: [facility] Address: [address] [place] [address] Performed By: #### A LLBG ####[facility] LABORATORYCLIA [id number] [place] [address] [place] HCO3 (Bld) [Moles/Vol] 39 mmol/L High 22-26 [facility] Comment on above: Order Comment: Speci men Type: ARTERIAL BLOOD SPECIMENOrdering Facility: [facility] Address: [address] [place] [address] Performed By: #### A LLBG ####[facility] LABORATORYCLIA [id number] [place] [address] [place] Hematocrit (Bld) [Volume fraction] 29.1 % Low 36.0-46.0 [facility] Comment on above: Order Comment: Speci men Type: ARTERIAL BLOOD SPECIMENOrdering Facility: [facility] Address: [address] [place] [address] Performed By: #### A LLBG ####[facility] LABORATORYCLIA [id number] [place] [address] [place] Hemoglobin (Bld) [Mass/Vol] 9.4 g/dL Low 11.5-15.5 [facility] Comment on above: Order Comment: Speci men Type: ARTERIAL BLOOD SPECIMENOrdering Facility: [facility] Address: [address] [place] [address] Performed By: #### A LLBG ####[facility] LABORATORYCLIA [id number] [place] [address] [place] Lactate [Moles/Vol] 0.7 mmol/L Normal 0.5-2.2 [facility] Comment on above: Order Comment: Speci men Type: ARTERIAL BLOOD SPECIMENOrdering Facility: [facility] Address: [address] [place] [address] Performed By: #### A LLBG ####[facility] LABORATORYCLIA [id number] [address] [place] Methemoglobin (Bld) [Mass fraction] 1.2 % Normal 0.0-1.5 [facility] Comment on above: Order Comment: Speci men Type: ARTERIAL BLOOD SPECIMENOrdering Facility: [facility] Address: [address] [place] [address] Performed By: #### A LLBG ####[facility] LABORATORYCLIA [id number] [address] O2 THERAPY Positive Normal [facility] Comment on above: Order Comment: Speci men Type: ARTERIAL BLOOD SPECIMENOrdering Facility: [facility] Address: [address] [place] [address] Performed By: #### A LLBG ####[facility] LABORATORYCLIA [id number] [address] [place] Oxygen (Bld) [Partial pressure] mm[Hg] Critically low 85-95 [facility] Comment on above: Order Comment: Speci men Type: ARTERIAL BLOOD SPECIMENOrdering Facility: [facility] Address: [address] [place] [address] Performed By: #### A LLBG ####[facility] LABORATORYCLIA [id number] [address] [place] Oxyhemoglobin (BldA) [Mass fraction] 37 % Low 95-98 [facility] Comment on above: Order Comment: Speci men Type: ARTERIAL BLOOD SPECIMENOrdering Facility: [facility] Address: [address] [place] [address] Performed By: #### A LLBG ####[facility] LABORATORYCLIA [id number] [place] [address] [place] pH (Bld) 7.23 [pH] Low 7.35-7.45 [facility] Comment on above: Order Comment: Speci men Type: ARTERIAL BLOOD SPECIMENOrdering Facility: [facility] Address: [address] [place] [address] Performed By: #### A LLBG ####[facility] LABORATORYCLIA [id number] [address] [place] PO2 / FIO2 RATIO <133 Low >300 [facility] Comment on above: Order Comment: Speci men Type: ARTERIAL BLOOD SPECIMENOrdering Facility: [facility] Address: [address] [place] [address] Performed By: #### A LLBG ####[facility] LABORATORYCLIA [id number] [address] [place] Potassium [Moles/Vol] 4.2 mmol/L Normal 3.5-5.0 [facility] Comment on above: Order Comment: Speci men Type: ARTERIAL BLOOD SPECIMENOrdering Facility: [facility] Address: [address] [place] [address] Performed By: #### A LLBG ####[facility] LABORATORYCLIA [id number] [place] [address] [place] Sodium [Moles/Vol] 143 mmol/L Normal 136-144 [facility] Comment on above: Order Comment: Speci men Type: ARTERIAL BLOOD SPECIMENOrdering Facility: [facility] Address: [address] [place] [address] Performed By: #### A LLBG ####[facility] LABORATORYCLIA [id number] [address] [place] Base excess Calc (Bld) [Moles/Vol] 9 mmol/L High 0-2 [facility] Comment on above: Order Comment: Speci men Type: ARTERIAL BLOOD SPECIMENOrdering Facility: [facility] Address: [address] [place] [address] Performed By: #### A LLBG ####[facility] LABORATORYCLIA [id number] [address] [place] Body temperature 98.24 [degF] Normal [facility] Comment on above: Order Comment: Speci men Type: ARTERIAL BLOOD SPECIMENOrdering Facility: [facility] Address: [address] [place] [address] Performed By: #### A LLBG ####[facility] LABORATORYCLIA [id number] [address] OF [facility] Calcium.ionized (BldV) [Mass/Vol] 1.20 mmol/L Normal 1.08-1.30 [facility] Comment on above: Order Comment: Speci men Type: ARTERIAL BLOOD SPECIMENOrdering Facility: [facility] Address: [address] [place] [address] Performed By: #### A LLBG ####[facility] LABORATORYCLIA [id number] [address] Calcium.ionized adjusted to pH 7.4 (BldA) [Moles/Vol] 1.10 mmol/L Normal 1.08-1.30 [facility] Comment on above: Order Comment: Speci men Type: ARTERIAL BLOOD SPECIMENOrdering Facility: [facility] Address: [address] [place] [address] Performed By: #### A LLBG ####[facility] LABORATORYCLIA [id number] [address] OF [facility] Carboxyhemoglobin (BldA) [Mass fraction] 0.9 % Normal 0.0-2.0 [facility] Comment on above: Order Comment: Speci men Type: ARTERIAL BLOOD SPECIMENOrdering Facility: [facility] Address: [address] [place] [address] Result Comment: Carb oxyhemoglobin Reference Range for Smokers: 2.0-8.0% Performed By: #### A LLBG ####[facility] LABORATORYCLIA [id number] [address] OF [facility] Chloride [Moles/Vol] 105 mmol/L Normal 102-109 [facility] Comment on above: Order Comment: Speci men Type: ARTERIAL BLOOD SPECIMENOrdering Facility: [facility] Address: [address] [place] [address] Performed By: #### A LLBG ####[facility] LABORATORYCLIA [id number] [address] CO2 (Bld) [Partial pressure] 89 mm Hg High 36-46 [facility] Comment on above: Order Comment: Speci men Type: ARTERIAL BLOOD SPECIMENOrdering Facility: [facility] Address: [address] [place] [address] Performed By: #### A LLBG ####[facility] LABORATORYCLIA [id number] [address] CO2 adjusted to patient's actual temperature (Bld) [Partial pressure] 88 mmHg High 36-46 [facility] Comment on above: Order Comment: Speci men Type: ARTERIAL BLOOD SPECIMENOrdering Facility: [facility] Address: [address] [place] [address] Performed By: #### A LLBG ####[facility] LABORATORYCLIA [id number] [address] [place] FIO2 45 % Normal [facility] Comment on above: Order Comment: Speci men Type: ARTERIAL BLOOD SPECIMENOrdering Facility: [facility] Address: [address] [place] [address] Performed By: #### A LLBG ####[facility] LABORATORYCLIA [id number] [address] [place] Glucose [Mass/Vol] 114 mg/dL High 60-105 [facility] Comment on above: Order Comment: Speci men Type: ARTERIAL BLOOD SPECIMENOrdering Facility: [facility] Address: [address] [place] [address] Performed By: #### A LLBG ####[facility] LABORATORYCLIA [id number] [address] [place] HCO3 (Bld) [Moles/Vol] 38 mmol/L High 22-26 [facility] Comment on above: Order Comment: Speci men Type: ARTERIAL BLOOD SPECIMENOrdering Facility: [facility] Address: [address] [place] [address] Performed By: #### A LLBG ####[facility] LABORATORYCLIA [id number] [address] [place] Hematocrit (Bld) [Volume fraction] 28.9 % Low 36.0-46.0 [facility] Comment on above: Order Comment: Speci men Type: ARTERIAL BLOOD SPECIMENOrdering Facility: [facility] Address: [address] [place] [address] Performed By: #### A LLBG ####[facility] LABORATORYCLIA [id number] [address] [place] Hemoglobin (Bld) [Mass/Vol] 9.3 g/dL Low 11.5-15.5 [facility] Comment on above: Order Comment: Speci men Type: ARTERIAL BLOOD SPECIMENOrdering Facility: [facility] Address: [address] [place] [address] Performed By: #### A LLBG ####[facility] LABORATORYCLIA [id number] [address] [place] Lactate [Moles/Vol] 0.5 mmol/L Normal 0.5-2.2 [facility] Comment on above: Order Comment: Speci men Type: ARTERIAL BLOOD SPECIMENOrdering Facility: [facility] Address: [address] [place] [address] Performed By: #### A LLBG ####[facility] LABORATORYCLIA [id number] [address] [place] Methemoglobin (Bld) [Mass fraction] 1.3 % Normal 0.0-1.5 [facility] Comment on above: Order Comment: Speci men Type: ARTERIAL BLOOD SPECIMENOrdering Facility: [facility] Address: [address] [place] [address] Performed By: #### A LLBG ####[facility] LABORATORYCLIA [id number] [address] [place] O2 THERAPY Positive Normal [facility] Comment on above: Order Comment: Speci men Type: ARTERIAL BLOOD SPECIMENOrdering Facility: [facility] Address: [address] [place] [address] Performed By: #### A LLBG ####[facility] LABORATORYCLIA [id number] [address] Oxygen (Bld) [Partial pressure] 179 mm Hg High 85-95 [facility] Comment on above: Order Comment: Speci men Type: ARTERIAL BLOOD SPECIMENOrdering Facility: [facility] Address: [address] [place] [address] Performed By: #### A LLBG ####[facility] LABORATORYCLIA [id number] [address] Oxygen adjusted to patient's actual temperature (Bld) [Partial pressure] 178 mmHg High 85-95 [facility] Comment on above: Order Comment: Speci men Type: ARTERIAL BLOOD SPECIMENOrdering Facility: [facility] Address: [address] [place] [address] Performed By: #### A LLBG ####[facility] LABORATORYCLIA [id number] [address] Oxyhemoglobin (BldA) [Mass fraction] 97 % Normal 95-98 [facility] Comment on above: Order Comment: Speci men Type: ARTERIAL BLOOD SPECIMENOrdering Facility: [facility] Address: [address] [place] [address] Performed By: #### A LLBG ####[facility] LABORATORYCLIA [id number] [address] [place] pH (Bld) 7.25 [pH] Low 7.35-7.45 [facility] Comment on above: Order Comment: Speci men Type: ARTERIAL BLOOD SPECIMENOrdering Facility: [facility] Address: [address] [place] [address] Performed By: #### A LLBG ####[facility] LABORATORYCLIA [id number] [address] pH adjusted to patient's actual temperature (Bld) 7.26 Low 7.35-7.45 [facility] Comment on above: Order Comment: Speci men Type: ARTERIAL BLOOD SPECIMENOrdering Facility: [facility] Address: [address] [place] [address] Performed By: #### A LLBG ####[facility] LABORATORYCLIA [id number] [address] PO2 / FIO2 RATIO 398 mmHg Normal >300 [facility] Comment on above: Order Comment: Speci men Type: ARTERIAL BLOOD SPECIMENOrdering Facility: [facility] Address: [address] [place] [address] Performed By: #### A LLBG ####[facility] LABORATORYCLIA [id number] [address] [place] Potassium [Moles/Vol] 4.0 mmol/L Normal 3.5-5.0 [facility] Comment on above: Order Comment: Speci men Type: ARTERIAL BLOOD SPECIMENOrdering Facility: [facility] Address: [address] [place] [address] Performed By: #### A LLBG ####[facility] LABORATORYCLIA [id number] [address] [place] Sodium [Moles/Vol] 143 mmol/L Normal 136-144 [facility] Comment on above: Order Comment: Speci men Type: ARTERIAL BLOOD SPECIMENOrdering Facility: [facility] Address: [address] [place] [address] Performed By: #### A LLBG ####[facility] LABORATORYCLIA [id number] [address] [place] Base excess Calc (Bld) [Moles/Vol] 10 mmol/L High 0-2 [facility] Comment on above: Order Comment: Speci men Type: ARTERIAL BLOOD SPECIMENOrdering Facility: [facility] Address: [address] [place] [address] Performed By: #### A LLBG ####[facility] LABORATORYCLIA [id number] [address] [place] Body temperature 98.24 [degF] Normal [facility] Comment on above: Order Comment: Speci men Type: ARTERIAL BLOOD SPECIMENOrdering Facility: [facility] Address: [address] [place] [address] Performed By: #### A LLBG ####[facility] LABORATORYCLIA [id number] [address] OF [facility] Calcium.ionized (BldV) [Mass/Vol] 1.25 mmol/L Normal 1.08-1.30 [facility] Comment on above: Order Comment: Speci men Type: ARTERIAL BLOOD SPECIMENOrdering Facility: [facility] Address: [address] [place] [address] Performed By: #### A LLBG ####[facility] LABORATORYCLIA [id number] [address] Calcium.ionized adjusted to pH 7.4 (BldA) [Moles/Vol] 1.14 mmol/L Normal 1.08-1.30 [facility] Comment on above: Order Comment: Speci men Type: ARTERIAL BLOOD SPECIMENOrdering Facility: [facility] Address: [address] [place] [address] Performed By: #### A LLBG ####[facility] LABORATORYCLIA [id number] [address] OF [facility] Carboxyhemoglobin (BldA) [Mass fraction] 0.9 % Normal 0.0-2.0 [facility] Comment on above: Order Comment: Speci men Type: ARTERIAL BLOOD SPECIMENOrdering Facility: [facility] Address: [address] [place] [address] Result Comment: Carb oxyhemoglobin Reference Range for Smokers: 2.0-8.0% Performed By: #### A LLBG ####[facility] LABORATORYCLIA [id number] [address] [place] Chloride [Moles/Vol] 101 mmol/L Low 102-109 [facility] Comment on above: Order Comment: Speci men Type: ARTERIAL BLOOD SPECIMENOrdering Facility: [facility] Address: [address] [place] [address] Performed By: #### A LLBG ####[facility] LABORATORYCLIA [id number] [address] [place] CO2 (Bld) [Partial pressure] mm[Hg] High 36-46 [facility] Comment on above: Order Comment: Speci men Type: ARTERIAL BLOOD SPECIMENOrdering Facility: [facility] Address: [address] [place] [address] Performed By: #### A LLBG ####[facility] LABORATORYCLIA [id number] [address] [place] CO2 adjusted to patient's actual temperature (Bld) [Partial pressure] >100 High 36-46 [facility] Comment on above: Order Comment: Speci men Type: ARTERIAL BLOOD SPECIMENOrdering Facility: [facility] Address: [address] [place] [address] Performed By: #### A LLBG ####[facility] LABORATORYCLIA [id number] [address] [place] Glucose [Mass/Vol] 143 mg/dL High 60-105 [facility] Comment on above: Order Comment: Speci men Type: ARTERIAL BLOOD SPECIMENOrdering Facility: [facility] Address: [address] [place] [address] Performed By: #### A LLBG ####[facility] LABORATORYCLIA [id number] [address] HCO3 (Bld) [Moles/Vol] 40 mmol/L High 22-26 [facility] Comment on above: Order Comment: Speci men Type: ARTERIAL BLOOD SPECIMENOrdering Facility: [facility] Address: [address] [place] [address] Performed By: #### A LLBG ####[facility] LABORATORYCLIA [id number] [address] [place] Hematocrit (Bld) [Volume fraction] 31.6 % Low 36.0-46.0 [facility] Comment on above: Order Comment: Speci men Type: ARTERIAL BLOOD SPECIMENOrdering Facility: [facility] Address: [address] [place] [address] Performed By: #### A LLBG ####[facility] LABORATORYCLIA [id number] [address] OF [facility] Hemoglobin (Bld) [Mass/Vol] 10.2 g/dL Low 11.5-15.5 [facility] Comment on above: Order Comment: Speci men Type: ARTERIAL BLOOD SPECIMENOrdering Facility: [facility] Address: [address] [place] [address] Performed By: #### A LLBG ####[facility] LABORATORYCLIA [id number] [address] OF [facility] Lactate [Moles/Vol] 0.9 mmol/L Normal 0.5-2.2 [facility] Comment on above: Order Comment: Speci men Type: ARTERIAL BLOOD SPECIMENOrdering Facility: [facility] Address: [address] [place] [address] Performed By: #### A LLBG ####[facility] LABORATORYCLIA [id number] [address] OF [facility] Methemoglobin (Bld) [Mass fraction] 1.4 % Normal 0.0-1.5 [facility] Comment on above: Order Comment: Speci men Type: ARTERIAL BLOOD SPECIMENOrdering Facility: [facility] Address: [address] [place] [address] Performed By: #### A LLBG ####[facility] LABORATORYCLIA [id number] [address] O2 THERAPY NR=Non-Rebreather Mask Normal [facility] Comment on above: Order Comment: Speci men Type: ARTERIAL BLOOD SPECIMENOrdering Facility: [facility] Address: [address] [place] [address] Performed By: #### A LLBG ####[facility] LABORATORYCLIA [id number] [address] Oxygen (Bld) [Partial pressure] 264 mm Hg High 85-95 [facility] Comment on above: Order Comment: Speci men Type: ARTERIAL BLOOD SPECIMENOrdering Facility: [facility] Address: [address] [place] [address] Performed By: #### A LLBG ####[facility] LABORATORYCLIA [id number] [address] STATES [facility] Oxygen adjusted to patient's actual temperature (Bld) [Partial pressure] 263 mmHg High 85-95 [facility] Comment on above: Order Comment: Speci men Type: ARTERIAL BLOOD SPECIMENOrdering Facility: [facility] Address: [address] [place] [address] Performed By: #### A LLBG ####[facility] LABORATORYCLIA [id number] [address] [place] Oxyhemoglobin (BldA) [Mass fraction] 97 % Normal 95-98 [facility] Comment on above: Order Comment: Speci men Type: ARTERIAL BLOOD SPECIMENOrdering Facility: [facility] Address: [address] [place] [address] Performed By: #### A LLBG ####[facility] LABORATORYCLIA [id number] [address] [place] pH (Bld) 7.22 [pH] Low 7.35-7.45 [facility] Comment on above: Order Comment: Speci men Type: ARTERIAL BLOOD SPECIMENOrdering Facility: [facility] Address: [address] [place] [address] Performed By: #### A LLBG ####[facility] LABORATORYCLIA [id number] [address] STATES [facility] pH adjusted to patient's actual temperature (Bld) 7.22 Low 7.35-7.45 [facility] Comment on above: Order Comment: Speci men Type: ARTERIAL BLOOD SPECIMENOrdering Facility: [facility] Address: [address] [place] [address] Performed By: #### A LLBG ####[facility] LABORATORYCLIA [id number] [address] [place] Potassium [Moles/Vol] 4.0 mmol/L Normal 3.5-5.0 [facility] Comment on above: Order Comment: Speci men Type: ARTERIAL BLOOD SPECIMENOrdering Facility: [facility] Address: [address] [place] [address] Performed By: #### A LLBG ####[facility] LABORATORYCLIA [id number] [place] [id number] [facility] Sodium [Moles/Vol] 144 mmol/L Normal 136-144 [facility] Comment on above: Order Comment: Speci men Type: ARTERIAL BLOOD SPECIMENOrdering Facility: [facility] Address: [address] [place], [place] [address] Performed By: #### A LLBG ####[facility] LABORATORYCLIA [id number] [place] [address] [facility] CONSULTon 08-06-2023 CONSULT HNO ID: [id number] Author: CARLTON OSBORN MD, PhD Service: Neurosurgery Author Type: Physician Type: Consults Filed: 08/06/2023 14:36 Note Text: CONSULT: NEUROSURGERY SERVICE Patient Name: Luiza May Date of : 1955 SERVICE DATE: 08/06/2023 SERVICE TIME: 12:06 AM REASON FOR CONSULT: SDH REQUESTING PHYSICIAN: Dr Ga PRIMARY CARE PHYSICIAN: Maryam Franco MD Consultation requested by Dr Ga for an opinion regarding SDH. My final recommendations will be communicated back to the requesting physician by way of shared Medical record or letter to requesting physician via US mail. CHIEF COMPLAINT: level 2 trauma HISTORY OF PRESENT ILLNESS : Luiza May is a 67 year old female presenting as a level II trauma transfer form [facility]. Patient presents after a mechanical GLF at home. Patient states she tripped on her laundry and fell, striking her head on the ground. She denies LOC. She remembers the entire event. At outside hospital she was found to have small acute parafalcine SDH. She was transferred to [facility] for trauma and neurosurgery evaluation. She denies headaches, N/V, dizziness, vision changes, neck pain, back pain, numbness, tingling, or radicular pain. She takes ASA 81 mg daily. She endorses a history of GLF with head trauma, ultimately requiring right craniotomy for SDH evacuation (02/08/2022) at [facility]. PAST MEDICAL HISTORY Diagnosis Date ACL (anterior [...] Cancer Mother R/T LUNG CANCER Heart Father PR Cancer Sister LUNG ALLERGIES Allergen Reactions Entex [Phenylephrin* Intolerance Tetanus Vaccines An* Swelling Current Facility-Administered Medications Medication Dose Route Frequency Provider Last Rate Last Admin NaCl 0.9% iv flush bag 20 mL INTRAVENOUS PRN Cheo Wheatley DO phenytoin 100 mg oral liquid (DILANTIN) 100 mg ORAL q 8 H Cheo Wheatley DO atorvastatin 40 mg tab(s) (LIPITOR) 40 mg ORAL DAILY Cheo Wheatley DO rOPINIRole 1 mg tab(s) (REQUIP) 1 mg ORAL AT BEDTIME Cheo Wheatley DO ARIPiprazole 2 mg tablet (ABILIFY) 2 mg ORAL DAILY Cheo Wheatley DO metoprolol succinate ER 25 mg tab(s) (TOPROL XL) 25 mg ORAL DAILY Cheo Wheatley DO potassium chloride ER 20-40 mEq tab(s) (KLOR-CON) 20-40 mEq ORAL/FEEDING TUBE PRN Cheo Wheatley DO Or potassium chloride iv piggyback 20 mEq/100 mL 20 mEq INTRAVENOUS PRN Cheo Wheatley DO magnesium sulfate iv piggyback in sterile water 2 g 50 mL 2 g INTRAVENOUS PRN Cheo Wheatley DO phosphorus 500 mg tab(s) (K PHOS NEUTRAL) 500 mg ORAL/FEEDING TUBE PRN(NO DISPENSE) Cheo Wheatley DO calcium gluconate iv piggyback 2 g in NaCl (iso-osmotic) 100 mL 2 g INTRAVENOUS PRN(NO DISPENSE) Cheo Wheatley, DO acetaminophen 1,000 mg tab(s) (TYLENOL) 1,000 mg ORAL/FEEDING TUBE q 6 H Cheo Wheatley, DO 1,000 mg at 08/05/232314 oxyCODONE IR 5 mg tab(s) (ROXICODONE) 5 mg ORAL/FEEDING TUBE q 6 H Cheo Wheatley, DO 5 mg at 08/05/232314 ipratropium-albuterol 3 mL nebulizer solution (DUONEB) 3 mL INHALATION q 6 H PRN Cheo Wheatley, DO ondansetron 4 mg tab(s) (ZOFRAN) 4 mg ORAL q 6 H PRN Cheo Wheatley, DO Or ondansetron (PF) 4 mg injection (ZOFRAN) 4 mg INTRAVENOUS q 6 H PRN Cheo Wheatley, DO Current Outpatient Medications Medication Sig Dispense Refill Benzonatate 200 mg capsule Take 1 capsule by mouth three times a day as needed. 21 capsule 0 furosemide (LASIX) 20 mg tablet Take 1 tablet by mouth two times a day. 60 tablet 3 ARIPiprazole (ABILIFY) 2 mg tablet Take 1 tablet by mouth once daily. 30 tablet 3 rOPINIRole (REQUIP) 1 mg tablet Take 1 tablet by mouth daily at bedtime. 30 tablet 3 Cholecalciferol, Vitamin D3, 25 mcg (1,000 unit) cap Take 1 capsule by mouth once daily. 30 capsule 3 phenytoin (DILANTIN) 125 mg/5 mL susp Take 4 mL by mouth every 8 hours. 237 mL 4 hydrOXYzine pamoate (VISTARIL) 25 mg capsule Take 1 capsule by mouth three times a day as needed for anxiety. 60 capsule 5 albuterol (more content not included)... [facility] CONSULT HNO ID: [id number] Author: MARÍA ORTA MD Service: General Surgery Author Type: Physician Type: Consults Filed: 08/06/2023 10:49 Note Text: Surgical Intensive Care Unit Consult Note SERVICE DATE: 08/05/2023 SERVICE TIME: 10:26 PM REASON FOR CONSULT: Subdural hematoma REQUESTING PHYSICIAN: Trauma surgery Subjective 67 year old female with unknown past medical history presents as a level 2 trauma transfer from [facility] after an unwitnessed fall at home. Per EMS, she struck her head without any report of loss of consciousness. At [facility] she had a CT of her head and a chest x-ray that were done-the CT demonstrating a small subdural hematoma without any midline shift. Patient is on low-dose aspirin. Her other injuries include a small laceration on the back of her head that was repaired with 4 arturo at [facility]. The GCS is [address] head demonstrated an acute anterior parafalcine subdural hemorrhage measuring 3 mm without mass effect. SICU consulted for assistance in managing bleed. FUNCTIONAL STATUS: Partially dependent PAST MEDICAL HISTORY Diagnosis Date ACL (anterior [...] 1985 BREAST LUMPECTOMY HX 2005 DELIVERY ONLY , low cervical COLONOSCOPY FLX DX W/COLLJ SPEC WHEN PFRMD 06/09/2006 Colonoscopy COLONOSCOPY FLX DX W/COLLJ SPEC WHEN PFRMD 08/20/2016 Colonoscopy mac LAPAROSCOPY SURG CHOLECYSTECTOMY 1992 Cholecystectomy, lap PREOP PLACEMENT NEEDLE LOC STEREOTACTIC CORE BIOPSY 10/25/07 lsft FAMILY HISTORY Problem Relation Age of Onset Cancer Mother R/T LUNG CANCER Heart Father PR Cancer Sister LUNG Social History Tobacco Use Smoking status: Former Packs/day: 1.00 Years: 18.00 Additional pack years: 0.00 Total pack years: 18.00 Types: Cigarettes Quit date: 04/06/2006 Years since quittin.3 Smokeless tobacco: Never Substance Use Topics Alcohol use: Yes Comment: Rarely Drug use: No (Not in a hospital admission) Current Facility-Administered Medications Medication Dose Route Frequency NaCl 0.9% iv flush bag 20 mL INTRAVENOUS PRN desmopressin 28 mcg in NaCl 0.9% 50 mL (DDAVP) 0.4 mcg/kg/dose (Order-Specific) INTRAVENOUS ONCE phenytoin 100 mg oral liquid (DILANTIN) 100 mg ORAL q 8 H atorvastatin 40 mg tab(s) (LIPITOR) 40 mg ORAL DAILY rOPINIRole 1 mg tab(s) (REQUIP) 1 mg ORAL AT BEDTIME ARIPiprazole 2 mg tablet (ABILIFY) 2 mg ORAL DAILY metoprolol succinate ER 25 mg tab(s) (TOPROL [...] 4 mg INTRAVENOUS q 6 H PRN Allergies As of Date: 08/05/2023 Allergen Noted Reaction ENTEX [PHENYLEPHRINE-GUAIFENE SIN] 04/22/2005 Intolerance TETANUS VACCINES AND TOXOID 04/22/2005 Swelling Fully Assessed 08/05/2023 COMPLETE REVIEW OF SYSTEMS: GENERAL: No weight loss, malaise or fevers. HEENT: Negative for frequent or significant headaches, No changes in hearing or vision, no nose bleeds or other nasal problems. NECK: Negative for lumps, goiter, pain and significant neck swelling. RESPIRATORY: Negative for cough, hemoptysis, wheezing, COPD, dyspnea or shortness of breath. CARDIOVASCULAR: Negative for chest pain, leg swelling, hypertension, CHF or palpitations. GI: No nausea, vomiting, or diarrhea. MUSCULOSKELETAL: Negative for joint pain or swelling, back pain or muscle pain. SKIN: Negative for lesions, rash, and itching. PSYCH: Negative for sleep disturbance, mood disorder and recent psychosocial stressors. NEURO: No history of headaches, syncope, paralysis, seizures or tremors. Objective PHYSICAL EXAM: BP 133/78 Pulse 101 Temp (Src) 98.3 (Oral) Resp 25 SpO2 95% LMP 02/11/2006 GENERAL: Alert. No distress. Resting comfortably. NEURO: AANDOx3. No focal neurologic deficits. Sensation grossly intact. HEENT: Norm (more content not included)... [facility] CONSULT PROGon 08-06-2023 CONSULT PROG HNO ID: [id number] Author: MARÍA ORTA MD Service: General Surgery Author Type: Physician Type: Consult Progress Note Filed: 08/06/2023 22:58 Note Text: INPATIENT SICU PROGRESS NOTE SERVICE DATE: 08/06/2023 SERVICE TIME: 6:31 AM Subjective Patient remains on BiPAP this morning. She is alert and oriented and able to follow commands. pCO2 remains elevated at 102 this AM. Patient states it normally is very high and she does not want to be intubated or undergo CPR even if it were to save her life. She states just let me go . Current Facility-Administered Medications Medication Dose Route Frequency NaCl 0.9% iv flush bag 20 mL [...] 4 mg INTRAVENOUS q 6 H PRN zolpidem 10 mg tab(s) (AMBIEN) 10 mg ORAL AT BEDTIME PRN Objective VITAL SIGNS BP 117/61 Pulse 85 Temp (Src) 98.3 (Oral) Resp 23 SpO2 96% LMP 02/11/2006 O2 Therapy: BiLevel Positive Airway Pressure, Liters: 6, %FIO2: 45 Temp (24hrs), Av.8 ?C (98.3 ?F), Min:36.8 ?C (98.3 ?F), Max:36.8 ?C (98.3 ?F) Date 08/05/23699 - 08/06/23 0659 08/06/23 07 - 08/07/23 0659 Shift 9097-1655 4762-8261 3254-1281 24 Hour Total 7125-6937 4143-1675 5055-2699 24 Hour Total INTAKE IV 1000 1000 Volume (mL) (NaCl 0.9% 1,000 mL iv bolus) 1000 1000 Shift Total 1000 1000 OUTPUT Shift Total Weight (kg) PHYSICAL EXAM: GENERAL: Alert. On BiPAP NEURO: AANDOx3. No focal neurologic deficits. Sensation grossly intact. HEENT: Normocephalic. Scalp laceration repaired with 4 arturo LUNGS: Unlabored breathing. Equal excursion bilaterally. CARDIAC: Regular rate, on tele, Good perfusion throughout. ABDOMEN: Soft, non-tender, non-distended. No rebound or guarding. EXTREMITIES: REGALADO. No deformities. SKIN: No obvious jaundice or pallor. DATA: Diagnostic tests reviewed for today's visit: Recent Labs 08/06/23 0608/06/23 0417 PH 7.25* 7.22* PCO2 89* >100* PO2 179* 264* BE 9* 10* HCO3 38* 40* O2HB 97 97 COHB 0.9 0.9 MHGB 1.3 1.4 PHTC 7.26* 7.22* PCO2T 88* >100* PO2T 178* 263* O2AD 45 -- Recent Labs 08/06/23 0601 08/06/23 0544 08/06/23 0417 08/05/239 CREAT -- -- -- 0.68 BUN -- -- -- 17 NA -- -- -- 144 K -- -- -- 4.6 CHLOR -- -- -- 101 CO2 -- -- -- 39* ANION -- -- -- 4* GLUC -- -- -- 87 CA -- -- -- 8.9 ALB -- -- -- 4.0 AST -- -- -- 18 ALT -- -- -- 13 ALKPHOS -- -- -- 82 TBILI -- -- -- <0.2* WBC -- -- -- 8.13 HB -- -- -- 10.3* HCT -- -- -- 35.0* PLT -- -- -- 147* LACT 0.5 0.5 0.9 -- Assessment AND Plan ACTIVE PROBLEM LIST Panlobular Emphysema (Hcc) Other [...] (Hcc) Seizure-Like Activity (Hcc) Subdural Hematoma (Hcc) Assessment This is a 67 year old female s/p unwitnessed fall coming in as a level 2 trauma found to have a small subdural hematoma Hospital course: 08/05/2023: Admitted to SICU Neuro: Acute anterior parafalcine subdural hemorrhage measuring 3 mm without mass effect - Neurosurgery consulted appreciate recommendations - Q1 neuro checks - DDAVP given to reverse aspirin - Holding anticoagulation - Head of bed at 30 degrees - SBP less than 160 - Repeat CT head in a.m. - Pain control: randy tylenol, oxy PRN - Scalp laceration repaired with 4 arturo at [facility]. Will continue to monitor area. (more content not included)... [facility] CT BRAIN WO IVCONon 08-06-[address] BRAIN WO IVCON * * *Final Report* * * DATE OF EXAM: Aug 06 2023 7:18AM [facility] 0504 - CT BRAIN WO IVCON / PROCEDURE REASON: Subdural hematoma * * * * Physician Interpretation * * * * EXAMINATION: CT BRAIN WO IVCON CLINICAL HISTORY: Subdural hematoma for follow-up TECHNIQUE: Serial axial images without IV contrast were obtained from the vertex to the foramen magnum. MQ: [id number]_3 CT Radiation dose: Integrated Dose-Length Product (DLP) for this visit = 717 mGy*cm CT Dose Reduction Employed: Automated exposure control (AEC) COMPARISON: CT head 08/05/2023 RESULT: Tempering Kiln Tender (topogram) images: No additional findings. Post-operative change: Right craniotomy is again seen Acute change: No evidence of an acute infarct Hemorrhage: Stable mild anterior parafalcine subdural hemorrhage. No new hemorrhage. Mass Lesion / Mass Effect: There is no evidence of an intracranial mass . No significant mass effect. Chronic change: Chronic right parietal occipital infarct. Chronic left parietal temporal infarct. Chronic right thalamic infarct. Parenchyma: There is mild generalized volume loss. The brain parenchyma is otherwise within normal limits for age. Ventricles: The lateral and third ventricles are enlarged but the configuration suggests central white matter volume loss. Paranasal sinuses and skull base: The visualized paranasal sinuses are grossly clear. The skull base and imaged soft tissues are unremarkable. IMPRESSION: Stable mild parafalcine subdural hemorrhage. No new findings. Senior Bioinformatics Scientist: PSCB Transcribe Date/Time: Aug 06 2023 7:49A Dictated by : BERNARDO ACT MD This examination was interpreted and the report reviewed and electronically signed by: BERNARDO CAT MD on Aug 06 2023 7:59AM EST [id number] [facility] ED NOTEon 08-06-2023 ED NOTE HNO ID: [id number] Author: JACK MOREL RN Service: ? Author Type: Registered Nurse Type: ED Notes Filed: 08/06/2023 06:49 Note Text: Report called RN. [facility] ED NOTE HNO ID: [id number] Author: JACK MOREL RN Service: ? Author Type: Registered Nurse Type: ED Notes Filed: 08/06/2023 06:23 Note Text: CT notified, routine CT re ordered and this Rn will have to bring pt when CT is ready. [facility] ED NOTE HNO ID: [id number] Author: JACK MOREL RN Service: ? Author Type: Registered Nurse Type: ED Notes Filed: 08/06/2023 05:38 Note Text: Per SICU, wait for fluids to be finished and see how patient responds. [facility] ED NOTE HNO ID: [id number] Author: JACK MOREL RN Service: ? Author Type: Registered Nurse Type: ED Notes Filed: 08/06/2023 05:37 Note Text: Pt continues to be hypotensive, MAPS 58, SICU resident being paged. [facility] ED NOTE HNO ID: [id number] Author: JACK MOREL RN Service: ? Author Type: Registered Nurse Type: ED Notes Filed: 08/06/2023 05:06 Note Text: Pt hypotensive, minimally responsive to sternal rub, TD low 100-180s, SICU paged, 1 L NS started per Dr. Umana [facility] ED NOTE HNO ID: [id number] Author: JACK MOREL RN Service: ? Author Type: Registered Nurse Type: ED Notes Filed: 08/06/2023 04:59 Note Text: Pt no longer a sit, pt now lethargic. [facility] ED NOTE HNO ID: [id number] Author: JACK MOREL RN Service: ? Author Type: Registered Nurse Type: ED Notes Filed: 08/06/2023 05:00 Note Text: RT at bedside placing pt on BIPAP, SICU resident at bedside and notified pt's BP is soft, pt responsive to pain, but otherwise lethargic. [facility] ED NOTE HNO ID: [id number] Author: JACK MOREL RN Service: ? Author Type: Registered Nurse Type: ED Notes Filed: 08/06/2023 04:40 Note Text: Per SICU resident, put pt on BIPAP, RT notified. [facility] ED NOTE HNO ID: [id number] Author: JACK MOREL RN Service: ? Author Type: Registered Nurse Type: ED Notes Filed: 08/06/2023 04:38 Note Text: SICU being paged to notify them that ABG is back [facility] ED NOTE HNO ID: [id number] Author: JACK MOREL RN Service: ? Author Type: Registered Nurse Type: ED Notes Filed: 08/06/2023 04:10 Note Text: Pt 81% on 6 L, placed back on NRB, SICU resident messaged. [facility] ED NOTE HNO ID: [id number] Author: JACK MOREL RN Service: ? Author Type: Registered Nurse Type: ED Notes Filed: 08/06/2023 04:07 Note Text: Attempted ABG, unsuccesssful at this time, pt conitnually trying to ghet out of bed, thinks this her new home. [facility] ED NOTE HNO ID: [id number] Author: JACK MOREL RN Service: ? Author Type: Registered Nurse Type: ED Notes Filed: 08/06/2023 03:58 Note Text: Pt placed back on 6 L NC, pt confused and reaching for things that are not there. [facility] ED NOTE HNO ID: [id number] Author: JACK MOREL RN Service: ? Author Type: Registered Nurse Type: ED Notes Filed: 08/06/2023 03:54 Note Text: Pt found sitting up in bed, naked, IV ripped out, NC cannula removed, pallor and increased work of breathing. Pt found to be 72% on RA, 80s on 6 L NC, pt up to 100% on NRB, SICU resident paged and notified. [facility] ED NOTE HNO ID: [id number] Author: JACK MOREL RN Service: ? Author Type: Registered Nurse Type: ED Notes Filed: 08/06/2023 02:19 Note Text: Dr. Wheatley messaged pt says she does not take Abilify, but takes 10mg of ambien and is requesting it right now. [facility] ED NOTE HNO ID: [id number] Author: JACK MOREL RN Service: ? Author Type: Registered Nurse Type: ED Notes Filed: 08/05/2023 23:57 Note Text: Waiting for medications from pharmacy. [facility] ED NOTE HNO ID: [id number] Author: JACK MOREL RN Service: ? Author Type: Registered Nurse Type: ED Notes Filed: 08/06/2023 04:56 Note Text: VBG sent. [facility] ED NOTE HNO ID: [id number] Author: CHRIS FAITH RN Service: Nursing Author Type: Registered Nurse Type: ED Notes Filed: 08/05/2023 23:14 Note Text: Hollie Charles PA-C with neurosurg at bedside. C-collar cleared. [facility] EKGon 08-06-2023 Electrocardiogram Ventricular Rate : 9 4 BPM Atrial Rate : 94 BPM P-R Interval : 116 ms QRS Duration : 96 ms Q-T Interval : 374 ms QTC Calculation(Bazett) : 467 ms Calculated P [place] : 70 degrees Calculated R [place] : 56 degrees Calculated T [place] : 60 degrees NORMAL SINUS RHYTHM LATERAL INFARCT , AGE UNDETERMINED INFERIOR INFARCT , AGE UNDETERMINED ABNORMAL ECG NO PREVIOUS ECGS AVAILABLE Confirmed by RACHEL HANSEN ([id number]) on 08/14/2023 4:32:55 PM NAME : LUIZA MAY PID : [id number] : 1955 Gender : Female Race : ORD : Procedure Date : Aug 06 2023 00:07:48 Edit Date : Aug 14 2023 16:32:55 Diagnosis: NORMAL SINUS RHYTHM LATERAL INFARCT , AGE UNDETERMINED INFERIOR INFARCT , AGE UNDETERMINED ABNORMAL ECG NO PREVIOUS ECGS AVAILABLE Confirmed by RACHEL HANSEN ([id number]) on 08/14/2023 4:32:55 PM Test Reason : Location : 4 : [facility] EM Overread By : RACHEL HANSEN Edited By : RACHEL HANSEN Referred By : , Acquired by : ALBERTO LIANG [facility] HISTORY PHYSICALon HISTORY PHYSICAL HNO ID: [id number] Author: SPENCER JIMENEZ MD Service: General Surgery Author Type: Resident Type: H&P Filed: 08/06/2023 09:46 Note Text: Attestation signed by Spencer Jimenez MD at 08/06/2023 9:46 AM Patient was seen and evaluated by myself on this day August 06, 2023. I agree with the presented documentation unless specifically noted. Mechanical fall Denies any recent respiratory symptoms Cause of current respiratory status unclear. Needing BiPAP at this time. SDH. Stable as of 08/06 am scan ICU for above SIGNATURE: Spencer Jimenez MD PATIENT NAME: Luiza May DATE: August 06, 2023 TIME: 9:44 AM Pager: [phone] TRAUMA SURGERY HANDP [facility] ARRIVAL DATE: 08/05/2023 ARRIVAL TIME: 10:10 PM CATEGORY: Level 2 INJURY DATE: 08/05/2023 INJURY TIME: afternoon Subjective 67 year old female with unknown past medical history presents as a level 2 trauma transfer from [facility] after an unwitnessed fall at home. Per EMS, she struck her head without any report of loss of consciousness. At [facility] she had a CT of her head and a chest x-ray that were done-the CT demonstrating a small subdural hematoma without any midline shift. Patient is on low-dose aspirin. Her other injuries include a small laceration on the back of her head that was repaired with 4 arturo at [facility]. The GCS is 15 HPI/CHIEF COMPLAINT: Unwitnessed fall BRIEF DESCRIPTION OF INJURIES: Small subdural hematoma, posterior scalp laceration LAST FLUIDS/MEAL: N/A CODE STATUS: Not discussed ALLERGIES Allergen Reactions Entex [Phenylephrin* Intolerance Tetanus Vaccines An* Swelling (Not in a hospital admission) DATE OF LAST TETANUS: N/A Immunization History Administered Date(s) Administered COVID-19 original vaccine, age 12+ yr, monovalent (Numedeon-Colibri Heart Valve - PURPLE TOP) 09/28/2020 10/20/2020 06/18/2021 influenza (HD-IIV4) vaccine, age 65+ yr, high dose, quadrivalent, PF (FLUZONE HIGH-DOSE) 05/07/2021 influenza (IIV3) vaccine, age 3+ yr, trivalent (AFLURIA, FLULAVAL, FLUVIRIN, FLUZONE) 04/08/2015 influenza (IIV4) vaccine, age 6 mo - 64 yr, quadrivalent (AFLURIA, FLULAVAL, FLUZONE) 04/14/2016 04/07/2017 pneumococcal (PCV7) vaccine, 7 valent (PREVNAR 7) 05/07/2006 pneumococcal conjugate (PCV13) vaccine, 13 valent (PREVNAR 13) 04/25/2015 pneumococcal polysaccharide (PPV23) vaccine, 23 valent (PNEUMOVAX 23) 04/25/2020 PAST MEDICAL HISTORY Diagnosis Date ACL (anterior [...] NEEDLE LOC STEREOTACTIC CORE BIOPSY 10/25/07 lsft Social History Tobacco Use Smoking status: Former Packs/day: 1.00 Years: 18.00 Additional pack years: 0.00 Total pack years: 18.00 Types: Cigarettes Quit date: 04/06/2006 Years since quittin.3 Smokeless tobacco: Never Substance Use Topics Alcohol use: Yes Comment: Rarely Drug use: No FAMILY HISTORY Problem Relation Age of Onset Cancer Mother R/T LUNG CANCER Heart Father PR Cancer Sister LUNG ROS: Is the patient having any pain? Yes LOCATION: Severe head Constitutional: Negative Eye/Ear/Nose: Negative Respiratory: Negative Cardiovascular: Negative GI/Liver/Biliary: Negative Genitourinary: Negative Psychiatric: Negative Neurologic: Negative Musculoskeletal: Positive for pain near laceration Integument: Negative Endocrine: Negative Heme/Lymph: Negative Objective PRIMARY SURVEY AIRWAY: Patent BREATHING: Breath sounds equal CIRCULATION: PT/DP 2, Radials 2, Femoral 2 DISABILITY: Eye: 4=Spontaneous Verbal: 5=Oriented and Converses Motor: 6=Obeys Commands Total GCS: 15=4 Resp Rate: 10 to 29=4 Syst BP: > than 89=4 REVISED TRAUMA SCORE: 12 EXPOSE / ENVIRONMENT: Not Applicable PROCEDURES: Cervical Collar: Removed at SECONDARY SURVEY VITALS: 08/05/23 2124 08/05/23212308/05/23212408/05/232141 BP: 134/70 133/78 Pulse: (!) 101 (!) 101 Resp: 22 (!) 25 Temp: 36.8 ?C (98.3 ?F) TempSrc: Oral SpO2: 95% NEURO: Alert AND Oriented x 3, GCS 15, Cranial Nerves II-XII jennifer (more content not included)... [facility] SARS-CoV-2 RNA Resp Ql MERISSA+p robeon 08-06-2023 SARS-CoV-2 (COVID-19) RNA MERISSA+probe Ql (Resp) COVID 19 RESULT: Not detected The method used is RT-PCR or an equivalent NAAT method. Reference Range(the expected result in uninfected individuals): Not detected [facility] Comment on above: Performed By: #### 9 [id number] ####[facility] LABORATORYCLIA [id number] STAPH AUREUS PCRon 4 S. aureus and MRSA panel MERISSA+probe (Nose) Normal [facility] Comment on above: Order Comment: Speci men Type: SWAB OF INTERNAL NOSEOrdering Facility: [facility] Address: [address] [place] [address] Result Comment: Nega tive for Staphylococcus aureus by PCR. Negative for MRSA by PCR Performed By: #### S APCR ####[facility]ORATORYCLIA [id number] [address] [place] TOX SCREEN ROUT URon 024 Amphetamines Confirm (U) [Mass/Vol] Negative Normal [facility] Comment on above: Order Comment: Speci men Type: URINE SPECIMENOrdering Facility: [facility] Address: [address] [place] [address] Result Comment: Cuto ff threshold at 1000 ng/mL. Performed By: #### U TOX2 ####[facility]ORYCLIA [id number] [address] [place] BARBITURATES, URINE Negative Normal [facility] Comment on above: Order Comment: Speci men Type: URINE SPECIMENOrdering Facility: [facility] Address: [address] [place] [address] Result Comment: Cuto ff threshold at 200 ng/mL. Performed By: #### U TOX2 ####[facility]ORATORYCLIA [id number] [address] [place]ENZ[place], UR Negative Normal Negative [facility] Comment on above: Order Comment: Speci men Type: URINE SPECIMENOrdering Facility: [facility] Address: [address] [place] [address] Result Comment: Cuto ff threshold at 200 ng/mL. Performed By: #### U TOX2 ####[facility]ORYCLIA [id number] [address] STATES OF [facility] Cannabinoids Screen Ql (U) Negative Normal Negative [facility] Comment on above: Order Comment: Speci men Type: URINE SPECIMENOrdering Facility: [facility] Address: [address] [place] [address] Result Comment: Cuto ff threshold at 50 ng/mL. Performed By: #### U TOX2 ####[facility]ORYCLIA [id number] [address] [place] Cocaine Ql (U) Negative Normal [facility] Comment on above: Order Comment: Speci men Type: URINE SPECIMENOrdering Facility: [facility] Address: [address] [place] [address] Result Comment: Cuto ff threshold at 300 ng/mL. Performed By: #### U TOX2 ####[facility]ORYCLIA [id number] [place] [id number] [place] Ethanol (U) [Mass/Vol] <11 Normal <11 [facility] Comment on above: Order Comment: Speci men Type: URINE SPECIMENOrdering Facility: [facility] Address: [address] [place] [address] Performed By: #### U TOX2 ####[facility]ATORYCLIA [id number] [address] Opiates Screen Ql (U) Negative Normal [facility] Comment on above: Order Comment: Speci men Type: URINE SPECIMENOrdering Facility: [facility] Address: [address] [place] [address] Result Comment: Cuto ff threshold at 300 ng/mL. Performed By: #### U TOX2 ####[facility]ATORYCLIA [id number] [address] oxyCODONE cutoff Screen (U) [Mass/Vol] Positive Abnormal Negative [facility] Comment on above: Order Comment: Speci men Type: URINE SPECIMENOrdering Facility: [facility] Address: [address] [place] [address] Result Comment: Cuto ff threshold at 100 ng/mL. Performed By: #### U TOX2 ####[facility]ORATORYCLIA [id number] [address] Phencyclidine Ql (U) Negative Normal Negative [facility] Comment on above: Order Comment: Speci men Type: URINE SPECIMENOrdering Facility: [facility] Address: [address] [place] [address] Result Comment: Cuto ff threshold at 25 ng/mL. Performed By: #### U TOX2 ####[facility]ATORYCLIA [id number] [address] [place] XR CHEST 1V FRONTALon 2023 XR CHEST 1V FRONTAL * * *Final Report* * * DATE OF EXAM: Aug 06 2023 4:39AM [id number] - XR CHEST 1V FRONTAL / PROCEDURE REASON: Shortness of breath * * * * Physician Interpretation * * * * EXAMINATION: CHEST RADIOGRAPH (SINGLE VIEW AP OR PA) CLINICAL HISTORY: Shortness of breath MQ: XC1_5 Comparison: 08/05/2023 RESULT: Lines, tubes, and devices: None. Lungs and pleura: No consolidation. No lung mass. No pleural effusion. Cardiomediastinal silhouette: Normal cardiomediastinal silhouette. Other: No bony abnormalities. Carotid atherosclerosis. IMPRESSION: No acute radiographic abnormality. Senior Bioinformatics Scientist: [facility] Transcribe Date/Time: Aug 06 2023 4:39A Dictated by : SOCORRO CALDERON MD This examination was interpreted and the report reviewed and electronically signed by: SOCORRO CALDERON MD on Aug 06 2023 4:39AM EST [id number] [facility] XR SHLDR >/=3V AP/ROSALES AP/OTH R LTon 08-06-2023 XR SHLDR >/=3V AP/ROSALES AP/OTHR LT * * *Final Report* * * DATE OF EXAM: Aug 05 2023 10:55PM [id number] [id number] - XR SHLDR >/=3V AP/ROSALES AP/OTHR LT / PROCEDURE REASON: Trauma * * * * Physician Interpretation * * * * EXAMINATION: XR SHLDR >/=3V AP/ROSALES AP/OTHR LT HISTORY: Trauma COMPARISON: 01.04.2020 FINDINGS: Bone: No fracture or dislocation . Soft tissue: Unremarkable Other: Unremarkable IMPRESSION: No fracture or dislocation. Senior Bioinformatics Scientist: [employer] Transcribe Date/Time: Aug 05 2023 10:57P Dictated by : RIDDHI GARCIA MD This examination was interpreted and the report reviewed and electronically signed by: RIDDHI GARCIA MD on Aug 05 2023 10:57PM EST [id number] Normal [facility] ALLIED HEALTHon 08-05-2023 ALLIED HEALTH HNO ID: [id number] Author: BERNARDINO WHEELER Chaplain Service: ? 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 PT is a transfer from another hospital. To contact the Spiritual Care Department: Please call [phone]. SIGNATURE: Chaplain Ly PATIENT NAME: Luiza May DATE: August 05, 2023 TIME: 9:36 PM PAGER/CONTACT #: [phone] [facility] ALLIED HEALTH HNO ID: [id number] Author: SAIRA MARQUEZ RT(R) Service: ? Author Type: Technologist Type: Allied Health Filed: 08/05/2023 21:32 Note Text: Radiology Service Progress Note PATIENT NAME: Luiza May DATE OF SERVICE: August 05, 2023 TIME: 9:32 PM PATIENT IDENTITY VERIFICATION COMPLETED USING TWO (2) IDENTIFIERS: Name and Date of confirmed by patient verbally. FALL SCREENING: Has the patient had 2 falls in the last year or 1 fall with injury or currently using an Ambulatory Assistive Device (Walker, Cane, Wheelchair, Crutches, etc.)? Emergency Room Patient: Screened in ED PATIENT GENDER DATA: Female. status: : No status: N/A PATIENT RELEVANT IMPLANT DATA REVIEWED: Not Applicable PATIENT PRESENTS WITH AN IMPLANTABLE OR ATTACHED POSTAL SERVICE CLERK: No RADIOLOGY DEPARTMENT: CT; Exam(s) Completed: Brain and Spine PERIPHERAL IV DATA: Not applicable SIGNED BY: RT Fletcher(R) August 05, 2023 9:32 PM [facility] CBC panel Auto (Bld)on 08-05 Erythrocyte distribution width (RBC) [Ratio] 13.0 % Normal 11.5-15.0 [facility] Comment on above: Order Comment: Speci men Type: BLOOD SPECIMENOrdering Facility: [facility] Address: [address] [place] [address] Performed By: #### 5 8410-2 ####[facility] LABORATORYCLIA [id number] [place] [address] [place] Hematocrit (Bld) [Volume fraction] 35.0 % Low 36.0-46.0 [facility] Comment on above: Order Comment: Speci men Type: BLOOD SPECIMENOrdering Facility: [facility] Address: [address] [place] [address] Performed By: #### 5 8410-2 ####[facility] LABORATORYCLIA [id number] [address] STATES OF [facility] Hemoglobin (Bld) [Mass/Vol] 10.3 g/dL Low 11.5-15.5 [facility] Comment on above: Order Comment: Speci men Type: BLOOD SPECIMENOrdering Facility: [facility] Address: [address] [place] [address] Performed By: #### 5 8410-2 ####[facility] LABORATORYCLIA [id number] [address] [place] MCH (RBC) [Entitic mass] 28.7 pg Normal 26.0-34.0 [facility] Comment on above: Order Comment: Speci men Type: BLOOD SPECIMENOrdering Facility: [facility] Address: [address] [place] [address] Performed By: #### 5 8410-2 ####[facility] LABORATORYCLIA [id number] [address] [place] MCHC (RBC) [Mass/Vol] 29.4 g/dL Low 30.5-36.0 [facility] Comment on above: Order Comment: Speci men Type: BLOOD SPECIMENOrdering Facility: [facility] Address: [address] [place] [address] Performed By: #### 5 8410-2 ####[facility] LABORATORYCLIA [id number] [address] [place] MCV (RBC) [Entitic vol] 97.5 fL Normal 80.0-100.0 [facility] Comment on above: Order Comment: Speci men Type: BLOOD SPECIMENOrdering Facility: [facility] Address: [address] [place] [address] Performed By: #### 5 8410-2 ####[facility]ORATORYCLIA [id number] [place] [address] [place] Nucleated RBC (Bld) [#/Vol] 10*3/uL Normal <0.01 [facility] Comment on above: Order Comment: Speci men Type: BLOOD SPECIMENOrdering Facility: [facility] Address: [address] [place] [address] Performed By: #### 5 8410-2 ####[facility] LABORATORYCLIA [id number] [place] [address] [place] Platelet mean volume (Bld) [Entitic vol] 10.5 fL Normal 9.0-12.7 [facility] Comment on above: Order Comment: Speci men Type: BLOOD SPECIMENOrdering Facility: [facility] Address: [address] [place] [address] Performed By: #### 5 8410-2 ####[facility] LABORATORYCLIA [id number] [address] [place] Platelets (Bld) [#/Vol] 147 10*3/uL Low 150-400 [facility] Comment on above: Order Comment: Speci men Type: BLOOD SPECIMENOrdering Facility: [facility] Address: [address] [place] [address] Result Comment: No c lot detected. Performed By: #### 5 8410-2 ####[facility]ORATORYCLIA [id number] [place] [address] [place] RBC (Bld) [#/Vol] 3.59 10*6/uL Low 3.90-5.20 [facility] Comment on above: Order Comment: Speci men Type: BLOOD SPECIMENOrdering Facility: [facility] Address: [address] [place] [address] Performed By: #### 5 8410-2 ####[facility] LABORATORYCLIA [id number] [address] [place] WBC (Bld) [#/Vol] 8.13 10*3/uL Normal 3.70-11.00 [facility] Comment on above: Order Comment: Speci men Type: BLOOD SPECIMENOrdering Facility: [facility] Address: [place] [address] Performed By: #### 5 8410-2 ####[facility] LABORATORYCLIA [id number] [place] [address] [place] [facility] CT BRAIN WO IVCONon 08-05-19 CT BRAIN WO IVCON * * *Final Report* * * DATE OF EXAM: Aug 05 2023 9:41PM [facility] 0504 - CT BRAIN WO IVCON / PROCEDURE REASON: Headache, sudden, severe * * * * Physician Interpretation * * * * EXAMINATION: CT BRAIN WO IVCON CLINICAL HISTORY: Headache, sudden, severe TECHNIQUE: CT data of the head was obtained without contrast. COMPARISON: None. RESULT: Acute change/hemorrhage: Acute anterior parafalcine subdural hemorrhage measuring 3 mm without mass effect. Parenchyma: Scattered nonspecific white matter disease. Multifocal cerebral encephalomalacia including RIGHT parieto-occipital, LEFT parietal, and RIGHT frontal foci. Chronic RIGHT thalamic lacunar infarction. Ventricles/Extra-axial spaces: Ventricular enlargement concordant with the degree of parenchymal volume loss. Mass effect: No significant mass effect. Other: Right-sided craniotomy. LEFT parietal scalp injury with associated arturo without underlying calvarial fracture. 9 mm LEFT ethmoid complex osteoma. Small volume of layering fluid or dependent mucosal thickening in the RIGHT sphenoid sinus. No acute abnormality of the visualized orbits. IMPRESSION: Small volume acute parafalcine subdural hemorrhage without mass effect. Multifocal encephalomalacia and chronic RIGHT thalamic lacunar infarction. CRITICAL TEST/RESULTS: Acuity: Critical Finding: Acute intracranial hemorrhage Communication: Communicated with Dr. Saleem on 08/05/2023 21:49 via verbal communication. --END OF FINDING-- Senior Bioinformatics Scientist: [email or web address] Transcribe Date/Time: Aug 05 2023 9:42P Dictated by : JOY GARCIA MD This examination was interpreted and the report reviewed and electronically signed by: JOY GARCIA MD on Aug 05 2023 9:50PM EST [id number] CRITICAL!! Invalid Interpretation Code [facility] CT CERVICAL SPINE WO IVCONon 08-05-2023 CT CERVICAL SPINE WO IVCON * * *Final Report* * * DATE OF EXAM: Aug 05 2023 9:41PM [facility] 0505 - CT CERVICAL SPINE WO IVCON / PROCEDURE REASON: Spine fracture, cervical, traumatic * * * * Physician Interpretation * * * * EXAMINATION: CT CERVICAL SPINE WO IVCON, CT THORACIC SPINE WO IVCON, CT LUMBAR SPINE WO IVCON CLINICAL HISTORY: Spine fracture, cervical, traumatic TECHNIQUE: Spiral, high resolution axial unenhanced images were obtained from the skull base to the sacrum with sagittal and coronal planar reconstructions. MQ: CTCTLWO_3 CT Radiation dose: Integrated Dose-Length Product (DLP) for this visit = mGy*cm. CT Dose Reduction Employed: Automated exposure control(AEC) and iterative recon COMPARISON: None. RESULT: CERVICAL: Counting reference: Craniocervical junction. Anatomic Variants: None. Alignment: Alignment is straightened. Craniocervical junction: Craniocervical junction is normal. Bone marrow / fracture: No evidence of a lytic or blastic process in the visualized spine. No evidence of acute or chronic fracture. Cervical soft tissues: The paraspinal soft tissues planes are maintained. Canal and foramina: No significant cervical canal or foraminal stenosis within the constraints of the study. THORACIC: Counting reference: Craniocervical and lumbosacral junctions. For the purposes of this report, L4-5 is considered the level of the iliac crest and assume there are 5 lumbar-type vertebrae. Anatomic variant: None. Alignment: Alignment is anatomic. Bone marrow / fracture: Minimal height loss anteriorly at T12 likely chronic compression deformity at Thoracic soft tissues: The paraspinal soft tissues planes are maintained. Canal and foramina: The bony thoracic canal and foramina are patent. LUMBAR: Counting reference: Craniocervical and lumbosacral junctions. For the purposes of this report, L4-5 is considered the level of the iliac crest and assume there are 5 lumbar-type vertebrae. Anatomic variant: None. Alignment: Alignment is anatomic. Bone marrow / fracture: No evidence of a lytic or blastic process in the visualized spine. No evidence of acute or chronic fracture. Paraspinal soft tissues: The paraspinal soft tissues planes are maintained. Canal and foramina: No significant lumbar canal or foraminal stenosis within the constraints of the study. Sacrum and iliac wings: The visualized sacrum and iliac wings are within normal limits. The presacral soft tissues are normal in appearance. IMPRESSION: Likely chronic compression deformity at T12 with minimal height loss anteriorly. No evidence of an acute fracture. Senior Bioinformatics Scientist: [employer] Transcribe Date/Time: Aug 05 2023 9:42P Dictated by : DALTON ISLAS MD This examination was interpreted and the report reviewed and electronically signed by: DALTON ISLAS MD on Aug 05 2023 10:02PM EST [id number] [facility] CT LUMBAR SPINE WO IVCONon 0 2- CT LUMBAR SPINE WO IVCON * * *Final Report* * * DATE OF EXAM: Aug 05 2023 9:41PM [facility] 0508 - CT LUMBAR SPINE WO IVCON / PROCEDURE REASON: Spine fracture, lumbar, traumatic * * * * Physician Interpretation * * * * EXAMINATION: CT CERVICAL SPINE WO IVCON, CT THORACIC SPINE WO IVCON, CT LUMBAR SPINE WO IVCON CLINICAL HISTORY: Spine fracture, cervical, traumatic TECHNIQUE: Spiral, high resolution axial unenhanced images were obtained from the skull base to the sacrum with sagittal and coronal planar reconstructions. MQ: CTCTLWO_3 CT Radiation dose: Integrated Dose-Length Product (DLP) for this visit = mGy*cm. CT Dose Reduction Employed: Automated exposure control(AEC) and iterative recon COMPARISON: None. RESULT: CERVICAL: Counting reference: Craniocervical junction. Anatomic Variants: None. Alignment: Alignment is straightened. Craniocervical junction: Craniocervical junction is normal. Bone marrow / fracture: No evidence of a lytic or blastic process in the visualized spine. No evidence of acute or chronic fracture. Cervical soft tissues: The paraspinal soft tissues planes are maintained. Canal and foramina: No significant cervical canal or foraminal stenosis within the constraints of the study. THORACIC: Counting reference: Craniocervical and lumbosacral junctions. For the purposes of this report, L4-5 is considered the level of the iliac crest and assume there are 5 lumbar-type vertebrae. Anatomic variant: None. Alignment: Alignment is anatomic. Bone marrow / fracture: Minimal height loss anteriorly at T12 likely chronic compression deformity at Thoracic soft tissues: The paraspinal soft tissues planes are maintained. Canal and foramina: The bony thoracic canal and foramina are patent. LUMBAR: Counting reference: Craniocervical and lumbosacral junctions. For the purposes of this report, L4-5 is considered the level of the iliac crest and assume there are 5 lumbar-type vertebrae. Anatomic variant: None. Alignment: Alignment is anatomic. Bone marrow / fracture: No evidence of a lytic or blastic process in the visualized spine. No evidence of acute or chronic fracture. Paraspinal soft tissues: The paraspinal soft tissues planes are maintained. Canal and foramina: No significant lumbar canal or foraminal stenosis within the constraints of the study. Sacrum and iliac wings: The visualized sacrum and iliac wings are within normal limits. The presacral soft tissues are normal in appearance. IMPRESSION: Likely chronic compression deformity at T12 with minimal height loss anteriorly. No evidence of an acute fracture. Senior Bioinformatics Scientist: [employer] Transcribe Date/Time: Aug 05 2023 9:42P Dictated by : DALTON ISLAS MD This examination was interpreted and the report reviewed and electronically signed by: DALTON ISLAS MD on Aug 05 2023 10:02PM EST [id number] Normal [facility] CT THORACIC SPINE WO IVCONon 08-05-2023 CT THORACIC SPINE WO IVCON * * *Final Report* * * DATE OF EXAM: Aug 05 2023 9:41PM [facility] 0514 - CT THORACIC SPINE WO IVCON / PROCEDURE REASON: Spine fracture, thoracic, traumatic * * * * Physician Interpretation * * * * EXAMINATION: CT CERVICAL SPINE WO IVCON, CT THORACIC SPINE WO IVCON, CT LUMBAR SPINE WO IVCON CLINICAL HISTORY: Spine fracture, cervical, traumatic TECHNIQUE: Spiral, high resolution axial unenhanced images were obtained from the skull base to the sacrum with sagittal and coronal planar reconstructions. MQ: CTCTLWO_3 CT Radiation dose: Integrated Dose-Length Product (DLP) for this visit = mGy*cm. CT Dose Reduction Employed: Automated exposure control(AEC) and iterative recon COMPARISON: None. RESULT: CERVICAL: Counting reference: Craniocervical junction. Anatomic Variants: None. Alignment: Alignment is straightened. Craniocervical junction: Craniocervical junction is normal. Bone marrow / fracture: No evidence of a lytic or blastic process in the visualized spine. No evidence of acute or chronic fracture. Cervical soft tissues: The paraspinal soft tissues planes are maintained. Canal and foramina: No significant cervical canal or foraminal stenosis within the constraints of the study. THORACIC: Counting reference: Craniocervical and lumbosacral junctions. For the purposes of this report, L4-5 is considered the level of the iliac crest and assume there are 5 lumbar-type vertebrae. Anatomic variant: None. Alignment: Alignment is anatomic. Bone marrow / fracture: Minimal height loss anteriorly at T12 likely chronic compression deformity at Thoracic soft tissues: The paraspinal soft tissues planes are maintained. Canal and foramina: The bony thoracic canal and foramina are patent. LUMBAR: Counting reference: Craniocervical and lumbosacral junctions. For the purposes of this report, L4-5 is considered the level of the iliac crest and assume there are 5 lumbar-type vertebrae. Anatomic variant: None. Alignment: Alignment is anatomic. Bone marrow / fracture: No evidence of a lytic or blastic process in the visualized spine. No evidence of acute or chronic fracture. Paraspinal soft tissues: The paraspinal soft tissues planes are maintained. Canal and foramina: No significant lumbar canal or foraminal stenosis within the constraints of the study. Sacrum and iliac wings: The visualized sacrum and iliac wings are within normal limits. The presacral soft tissues are normal in appearance. IMPRESSION: Likely chronic compression deformity at T12 with minimal height loss anteriorly. No evidence of an acute fracture. Senior Bioinformatics Scientist: [facility] Transcribe Date/Time: Aug 05 2023 9:42P Dictated by : DALTON ISLAS MD This examination was interpreted and the report reviewed and electronically signed by: DALTON ISLAS MD on Aug 05 2023 10:02PM EST [id number] Normal [facility] Comprehensive metabolic 2000 panelon 08-05-2023 Albumin [Mass/Vol] 4.0 g/dL Normal 3.9-4.9 [facility] Comment on above: Order Comment: Speci men Type: BLOOD SPECIMENOrdering Facility: [facility] Address: [address] [place], [place] [address] Performed By: #### 2 4323-8, 3040-3 ####[facility] LABORATORYCLIA [id number] [place] [address] [place] ALP [Catalytic activity/Vol] 82 U/L Normal 34-123 [facility] Comment on above: Order Comment: Speci men Type: BLOOD SPECIMENOrdering Facility: [facility] Address: [address] [place] [address] Performed By: #### 2 4323-8, 3040-3 ####[facility] LABORATORYCLIA [id number] [address] STATES OF [facility] ALT With P-5'-P [Catalytic activity/Vol] 13 U/L Normal 7-38 [facility] Comment on above: Order Comment: Speci men Type: BLOOD SPECIMENOrdering Facility: [facility] Address: [address] [place] [address] Performed By: #### 2 4323-8, 0-3 ####[facility] LABORATORYCLIA [id number] [address] STATES OF [facility] Anion gap [Moles/Vol] 4 mmol/L Low 9-18 [facility] Comment on above: Order Comment: Speci men Type: BLOOD SPECIMENOrdering Facility: [facility] Address: [address] [place] [address] Performed By: #### 2 4323-8, 0-3 ####[facility] LABORATORYCLIA [id number] [address] STATES OF [facility] AST With P-5'-P [Catalytic activity/Vol] 18 U/L Normal 13-35 [facility] Comment on above: Order Comment: Speci men Type: BLOOD SPECIMENOrdering Facility: [facility] Address: [address] [place] [address] Performed By: #### 2 4323-8, 3040-3 ####[facility]ORATORYCLIA [id number] [address] [place] Bilirubin [Mass/Vol] mg/dL Low 0.2-1.3 [facility] Comment on above: Order Comment: Speci men Type: BLOOD SPECIMENOrdering Facility: [facility] Address: [address] [place] [address] Performed By: #### 2 4323-8, 0-3 ####[facility] LABORATORYCLIA [id number] [place] [address] [place] Calcium [Mass/Vol] 8.9 mg/dL Normal 8.5-10.2 [facility] Comment on above: Order Comment: Speci men Type: BLOOD SPECIMENOrdering Facility: [facility] Address: [address] [place] [address] Performed By: #### 2 4323-8, 0-3 ####[facility] LABORATORYCLIA [id number] [place] [address] [place] Chloride [Moles/Vol] 101 mmol/L Normal 97-105 [facility] Comment on above: Order Comment: Speci men Type: BLOOD SPECIMENOrdering Facility: [facility] Address: [address] [place] [address] Performed By: #### 2 4323-8, 3039-3 ####[facility]ORATORYCLIA [id number] [place] [address] [place] CO2 [Moles/Vol] 39 mmol/L High 22-30 [facility] Comment on above: Order Comment: Speci men Type: BLOOD SPECIMENOrdering Facility: [facility] Address: [address] [place] [address] Performed By: #### 2 4323-8, 0-3 ####[facility]ORATORYCLIA [id number] [place] [address] [place] Creatinine [Mass/Vol] 0.68 mg/dL Normal 0.58-0.96 [facility] Comment on above: Order Comment: Speci men Type: BLOOD SPECIMENOrdering Facility: [facility] Address: [address] [place] [address] Performed By: #### 2 4323-8, 3040-3 ####[facility]ORATORYCLIA [id number] [place], [place] [address] [place] [address] [place] Creatinine and Glomerular filtration rate.predicted panel (S/P/Bld) 95 mL/min/1.73m??? Normal >=60 [facility] Comment on above: Order Comment: Kaela burns Type: BLOOD SPECIMENOrdering Facility: [facility] Address: [address] [place] [address] Result Comment: Sierra mated Glomerular Filtration Rate (eGFR) is calculated using the 2020 CKD-EPI creatinine equation. This equation utilizes serum creatinine, sex, and age as parameters. The creatinine assay has traceable calibration to isotope dilution-mass spectrometry. Refer to KDIGO guidelines for clinical interpretation. In patients with unstable renal function, e.g. those with acute kidney injury, the eGFR may not accurately reflect actual GFR. Performed By: #### 2 4323-8, 3040-3 ####[facility] LABORATORYCLIA [id number] [place] [address] [place] Glucose [Mass/Vol] 87 mg/dL Normal 74-99 [facility] Comment on above: Order Comment: Kaela burns Type: BLOOD SPECIMENOrdering Facility: [facility] Address: [address] [place] [address] Result Comment: The [place] Diabetes Association (ADA) provides guidance for cutoff values for fasting glucose and random glucose. The ADA defines fasting as no caloric intake for at least 8 hours. Fasting plasma glucose results between 100 to 125 [...] Standards of Medical Care in Diabetes 2016, [place] [employer]. Diabetes Care. 2016.39(Suppl 1). Performed By: #### 2 4323-8, 3040-3 ####[facility]ORATORYCLIA [id number] [place] [address] [place] Potassium [Moles/Vol] 4.6 mmol/L Normal 3.7-5.1 [facility] Comment on above: Order Comment: Kaela burns Type: BLOOD SPECIMENOrdering Facility: [facility] Address: [address] [place] [id number] Performed By: #### 2 4323-8, 3040-3 ####[facility]ORATORYCLIA [id number] [place], [place] [address] [place] [address] STATES [facility] Protein [Mass/Vol] 6.4 g/dL Normal 6.3-8.0 [facility] Comment on above: Order Comment: Speci men Type: BLOOD SPECIMENOrdering Facility: [facility] Address: [address] [place] [address] Performed By: #### 2 4323-8, 3040-3 ####[facility]ORATORYCLIA [id number] [place], [place] [address] [place] [address] [place] [facility] Sodium [Moles/Vol] 144 mmol/L Normal 136-144 [facility] Comment on above: Order Comment: Speci men Type: BLOOD SPECIMENOrdering Facility: [facility] Address: [address] [place] [address] Performed By: #### 2 4323-8, 3040-3 ####[facility]ORATORYCLIA [id number] [address] STATES [facility] Urea nitrogen [Mass/Vol] 17 mg/dL Normal 7-21 [facility] Comment on above: Order Comment: Speci men Type: BLOOD SPECIMENOrdering Facility: [facility] Address: [address] [place] [address] Performed By: #### 2 4323-8, 3040-3 ####[facility]ORATORYCLIA [id number] [address] [place] ED NOTEon 08-05-2023 ED NOTE HNO ID: [id number] Author: ERICKA AYALA RN Service: ? Author Type: Registered Nurse Type: ED Notes Filed: 08/05/2023 21:43 Note Text: Bed: 08-ED Expected date: Expected time: Means of arrival: Comments: Normal [facility] ED NOTE HNO ID: [id number] Author: ANNIA FERNANDEZ MD Service: ? Author Type: Physician Type: ED Notes Filed: 08/05/2023 23:50 Note Text: Chart reviewed after initial assessment showing PMhx prior CVA, anxiety, COPD. She is presenting as transfer from [place] for small ~3mm SDH. She had unwitnessed fall today, striking her head w/o report of LOC. She reportedly was confused since yesterday. 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 She is on low-dose ASA without other AC. She had a scalp laceration that had been repaired with 4 arturo. The pt reports having L shoulder pain on arrival without other acute complaints. Imaging here confirms SDH without change and without significant other traumatic injury. Pt given DDAVP and admitted to trauma ICU for further evaluation/management. Pt not requiring airway intervention and BP within appropriate range to not require anti-HTN. Critical Care I spent a total of 35 minutes of critical care time in the evaluation and management of this patient. This was necessary to treat or prevent deterioration of the following condition(s): Multiple trauma, which the patient had and/or has a high probability of suddenly developing. The patient received DDAVP and Consultation by trauma during the time that critical care was provided.I discussed the plan of care with the RESIDENT and agree with the findings documented. Critical care time excludes separately billed procedures. MD Annia Falk MD [facility] ED NOTE HNO ID: [id number] Author: CHRIS FAITH RN Service: Nursing Author Type: Registered Nurse Type: ED Notes Filed: 08/05/2023 21:46 Note Text: Dr. Ga called. [facility] ED NOTE HNO ID: [id number] Author: JEET TAYLOR, Vera Service: ? Author Type: Animal Laboratory Helper and Distribution Superintendent Type: ED Notes Filed: 08/05/2023 21:22 Note Text: [facility] Expected date: Expected time: Means of arrival: [facility] Comments: Rarden Transfer Cat II [facility] ED NOTE HNO ID: [id number] Author: CHRIS FAITH RN Service: Nursing Author Type: Registered Nurse Type: ED Notes Filed: 08/05/2023 21:46 Note Text: Trauma residents at bedside. [facility] ED PROV NOTEon 08-05-2023 ED PROV NOTE HNO ID: [id number] Author: ANNIA FERNANDEZ MD Service: Emergency Medicine Author Type: Physician Type: ED Provider Notes Filed: 08/06/2023 23:33 Note Text: ED Provider Note Patient Name: Luiza May : 1955 SERVICE DATE: 08/05/23 History No chief complaint on file. This is a 67-year-old female with past medical history of SDH status post craniectomy, COPD, who presents to the emergency department as a transfer from [facility]. Per EMS patient was altered yesterday and then had a fall this morning. Spoke with patient's daughter who states that the patient usually sleeps with a CPAP at night however she was sleeping in a separate room and did not sleep with the CPAP. When she woke up this morning she was noted to be more confused per daughter. Daughter is unsure of situation that caused the patient to fall. Patient is not able to recall this either. Patient is on aspirin. She is not on anticoagulation. Patient denies chest pain, shortness of breath, fever, chills, nausea, vomiting. PAST MEDICAL HISTORY Diagnosis Date ACL (anterior [...] Cancer Mother R/T LUNG CANCER Heart Father PR Cancer Sister LUNG Social History Tobacco Use Smoking status: Former Packs/day: 1.00 Years: 18.00 Additional pack years: 0.00 Total pack years: 18.00 Types: Cigarettes Quit date: 04/06/2006 Years since quittin.3 Smokeless tobacco: Never Substance and Sexual Activity Alcohol use: Yes Comment: Rarely Drug use: No Sexual activity: Yes Partners: Male control/protection: Other Comment: Postmenopausal ALLERGIES Allergen Reactions Entex [Phenylephrin* Intolerance Tetanus Vaccines An* Swelling Review of Systems Constitutional: Negative for chills, fatigue and fever. HENT: Negative for congestion, rhinorrhea and sore throat. Respiratory: Negative for shortness of breath and wheezing. Cardiovascular: Negative for chest pain and palpitations. Gastrointestinal: Negative for abdominal pain, diarrhea, nausea and vomiting. Genitourinary: Negative for dysuria and hematuria. Musculoskeletal: Negative for arthralgias and back pain. Skin: Negative for rash. Neurological: Negative for dizziness, weakness, light-headedness and numbness. Physical Exam Vitals BP Pulse Temp Temp src Resp SpO2 Weight Height 08/05/23212208/05/23212308/05/23212308/05/23212308/05/23212308/05/232122 -- -- 133/78 (!) 101 36.8 ?C (98.3 ?F) Oral 22 (!) 88 % Physical Exam HEAD: Normocephalic, 4 arturo in left posterior scalp. No facial edema appreciated, mid-face stable. No pain on bony palpation of the facial bones. EYES: EOMI, PERRLA, No evidence of subconjunctival hemorrhage, no evidence of penetrating injury or entrapment EARS: External ear without signs of trauma, canal clear, no hemotympanum noted. NOSE: No gross deformities, lacerations or ecchymosis noted to the external nose. No blood at the nares. No septal hematoma appreciated. THROAT: Uvula midline, no evidence of oropharyngeal edema, patient handling secretions appropriately and able to swallow. No evidence of tongue, lip or mucosal lacerations. No blood noted in the oropharynx. . CERVICAL SPINE/NECK: No evidence of expanding hematoma, crepitus, deviated trachea, ecchymosis or lacerations. No midline spine tenderness, step offs or deformities appreciated. CHEST: No lacerations, ecchymosis, or crepitus appreciated. No pain or deformity noted on palpation of clavicles, ribs, or sternum. Negative for seatbelt sign. CTAB without wheezing, rales, rhonchi or diminished areas. Patients breathing without accessory muscles, at a normal rate and with a normal inspiratory volume. Patient saturating at 88% on RA, placed on 2L and improved to 98%. Heart has RRR without any murmurs, rubs, gallops or distant sounds. ABDOMEN: NBS x4 without signs of ecchymosis, laceration or abrasions. No peritoneal signs. Soft, non-tender, non-distended, non-rigid. No midline tenderness, deformities or step-offs of the thoracic/lumbar spine. PELVIS: No pain on palpation or ecc (more content not included)... Normal [facility] Ethanol SerPl-mCncon 024 Ethanol [Mass/Vol] mg/dL Normal <11 [facility] Comment on above: Order Comment: Speci men Type: BLOOD SPECIMENOrdering Facility: [facility] Address: [address] [place] [address] Performed By: #### 5 643-2 ####[facility] LABORATORYCLIA [id number] [place] [address] [place] HIGH SENSITIVITY TROPONIN To n 08-05-2023 Troponin T.cardiac High sensitivity method [Mass/Vol] 13 ng/L High <12 [facility] Comment on above: Order Comment: Kaela burns Type: BLOOD SPECIMENOrdering Facility: [facility] Address: [address] [place] [address] Result Comment: When assessing risk for acute coronary syndromes: In patients undergoing blood draw greater than or equal to 2 hours from symptom onset, with history of very low to moderate risk and non-ischemic ECG, an initial hs-Troponin T less than 12 ng/L AND a 1 hour delta hs-Troponin T less than 3 ng/L should be considered very low risk for 30 day MACE. Performed By: #### H STNT ####[facility] LABORATORYCLIA [id number] [place] [address] [place] Lipase SerPl-cCncon 08-05-19 24 Lipase [Catalytic activity/Vol] 33 U/L Normal 16-61 [facility] Comment on above: Order Comment: Yusufi grant Type: BLOOD SPECIMENOrdering Facility: [facility] Address: [address] [place] [address] Performed By: #### 2 4323-8, 3040-3 ####[facility] LABORATORYCLIA [id number] [place] [address] [place] PT panel Coag (PPP)on 2023 INR Coag (PPP) [Relative time] 0.9 {INR} Normal 0.9-1.3 [facility] Comment on above: Order Comment: Speci men Type: BLOOD SPECIMENOrdering Facility: [facility] Address: [address] [place] [address] Result Comment: Lanie min K Antagonist (VKA) Therapeutic Range: INR 2 to 3 (Target INR of 2.5) Note: For patients treated with VKA drugs, such as warfarin, the [employer] 2012 Guideline recommends a therapeutic INR range of 2 to 3 (target INR of 2.5). This recommendation includes high-risk patients with antiphospholipid syndrome with previous arterial or venous thromboembolism, current-generation mechanical or bioprosthetic aortic heart valve replacement. Note: Patients with mechanical aortic valve replacement and additional risk factors for thromboembolic events (atrial fibrillation, previous thromboembolism, LV dysfunction, hypercoagulable conditions) or an older generation mechanical AVR (i.e., ball in-Cage) or any mechanical MVR should have a INR therapeutic range of 2.5 to 3.5 (target INR of 3). Antonieta GH, et al. Chest 2012, 141:7S-47S Jamie RA, et al. [facility] 2017, 70: 252-289 Performed By: #### 3 4528-0, 30824-5 ####[facility] LABORATORYCLIA [id number] [place] [id number] [place] PT Coag (PPP) [Time] 10.1 s Normal 9.7-13.0 [facility] Comment on above: Order Comment: Speci men Type: BLOOD SPECIMENOrdering Facility: [facility] Address: [address] [place] [address] Performed By: #### 3 4528-0, 25661-1 ####[facility] LABORATORYCLIA [id number] [place] [address] [place] TYPE + SCREENon 08-05-2023 ABO A Normal [facility] Comment on above: Order Comment: Speci men Type: BLOOD SPECIMENOrdering Facility: [facility] Address: [address] [place] [address] Performed By: #### T SCR ####[facility] BLOOD BANKCLIA [id number] [place] [address] [facility] HISTORICAL AB SCR STATUS Negative Normal [facility] Comment on above: Order Comment: Speci men Type: BLOOD SPECIMENOrdering Facility: [facility] Address: [address] [place] [address] Performed By: #### T SCR ####[facility] BLOOD BANKCLIA [id number] [place] [id number] [facility] Rh Nom (Bld) Positive Normal [facility] Comment on above: Order Comment: Speci men Type: BLOOD SPECIMENOrdering Facility: [facility] Address: [address] [place] [address] Performed By: #### T SCR ####[facility] BLOOD BANKCLIA [id number] [place] [id number] [facility] TYPE AND SCREEN EXPIRATION 08/08/2023 23:59 Normal [facility] Comment on above: Order Comment: Speci men Type: BLOOD SPECIMENOrdering Facility: [facility] Address: [address] [place] [address] Performed By: #### T SCR ####[facility] BLOOD BANKCLIA [id number] [place] [id number] [facility] XR CHEST 1V FRONTALon 2023 XR CHEST 1V FRONTAL * * *Final Report* * * DATE OF EXAM: Aug 05 2023 9:35PM [id number] - XR CHEST 1V FRONTAL / PROCEDURE REASON: Chest pain, nonspecific * * * * Physician Interpretation * * * * EXAMINATION: CHEST RADIOGRAPH (SINGLE VIEW AP OR PA) CLINICAL HISTORY: Chest pain, nonspecific, Polytrauma, blunt, Chest trauma MQ: XC1_5 Comparison: 08/04/2022 RESULT: Lines, tubes, and devices: None. Lungs and pleura: No consolidation. No lung mass. No pleural effusion. Cardiomediastinal silhouette: Normal cardiomediastinal silhouette. Other: No acute bony abnormality seen. Cervical collar. IMPRESSION: No acute radiographic abnormality. Senior Bioinformatics Scientist: [facility] Transcribe Date/Time: Aug 05 2023 9:43P Dictated by : SOCORRO CALDERON MD This examination was interpreted and the report reviewed and electronically signed by: SOCORRO CALDERON MD on Aug 05 2023 9:46PM EST [id number] Normal [facility] XR PELVIS 1V APon 08-05-2023 XR PELVIS 1V AP * * *Final Report* * * DATE OF EXAM: Aug 05 2023 9:38PM [id number] - XR PELVIS 1V AP / PROCEDURE REASON: Pelvic trauma * * * * Physician Interpretation * * * * EXAMINATION: XR PELVIS 1V AP HISTORY: Pelvic trauma COMPARISON: None FINDINGS: Bone: No fracture or dislocation . Soft tissue: Unremarkable Other: Unremarkable IMPRESSION: No fracture or dislocation on limited single view of the pelvis. Senior Bioinformatics Scientist: [facility] Transcribe Date/Time: Aug 05 2023 9:44P Dictated by : RIDDHI GARCIA MD This examination was interpreted and the report reviewed and electronically signed by: RIDDHI GARCIA MD on Aug 05 2023 9:44PM EST [id number] Normal [facility] aPTT PPPon 08-05-2023 aPTT Coag (PPP) [Time] 24.8 s Normal 23.0-32.4 [facility] Comment on above: Order Comment: Speci men Type: BLOOD SPECIMENOrdering Facility: [facility] Address: [address] [place] [address] Performed By: #### 3 4528-0, 85861-5 ####[facility] LABORATORYCLIA [id number] [address] [place] Jon 07-15-2023 JAMESN Telephone (INTMWS) LUIZA MAY ([id number]) 1955 F Date Time Provider Department 07/15/23 JOAN JOHNSON During your visit today, we recorded the following information about you: Joan Johnson APRN.CNP 07/15/2023 12:13 PM Signed Please let patient know she is positive for the RSV virus. Treatment is same as what Lise prescribed yesterday. How is she feeling? Increased shortness of breath? Increased sputum production? Any worse symptoms? Thank you FLACA Gil Ma, Jane 07/15/2023 12:32 PM Signed Tried calling patient, VM full. Nava Connell LPN 07/21/2023 4:15 PM Signed Spoke with daughter and pt was not with her but she talked to pt last night and pt reported to her was feeling pretty rough, but pt was doing her breathing treatment, resting, keeping her oxygen on and using bipap machine. Daughter was going to call pt again today and have her call in. When she calls see how she is doing, see questions below per Joan Johnson. YULI Schmidt Stephanie, RN 07/21/2023 4:21 PM Signed Patient states that she feels a little better. It has not changed a whole lot from her appointment. Patient is bringing up sputum now. Patient has had no increased shortness of breath. Patient states that it is the same as appointment.. FINESSE Flannery Joy, APRN.CNP 07/22/2023 12:35 PM Signed I have ordered augmentin. If no improvement she needs to be seen Thank you Joan Johnson APRN.Katty Alberts Ma 07/22/2023 12:44 PM Signed Patient notified. Allergies As of Date: 07/15/2023 Noted Allergy Reaction ENTEX (PHENYLEPHRINE-GUAIFENE SIN) 04/22/2005 5 - Intolerance TETANUS VACCINES AND TOXOID 04/22/2005 7 - Swelling Date Reviewed: 07/14/2023 Reviewed by: Renee Aguilera Ma - Fully Assessed Reason for Visit: Results [95] Order(s):amoxicillin-cl avulanate potassium (AUGMENTIN) 875-125 mg per tabletTake 1 tablet by mouth two times a day for 7 days.Disp: 14 tabletRfl: 0 Prescriptions as of 07/22/2023 - amoxicillin-clavulanate potassium (AUGMENTIN) 875-125 mg per tablet Take 1 tablet by mouth two times a day for 7 days. - predniSONE (DELTASONE) 10 mg tablet Take 4 tabs daily x5 days, then 2 tabs daily for 5 days, then 1 tab daily for 5 days. - Benzonatate 200 mg capsule Take 1 capsule by mouth three times a day as needed. - furosemide (LASIX) 20 mg tablet Take 1 tablet by mouth two times a day. - ARIPiprazole (ABILIFY) 2 mg tablet Take 1 tablet by mouth once daily. - rOPINIRole (REQUIP) 1 mg tablet Take 1 tablet by mouth daily at bedtime. - Cholecalciferol, Vitamin D3, 25 mcg (1,000 unit) cap Take 1 capsule by mouth once daily. - phenytoin (DILANTIN) 125 mg/5 mL susp Take 4 mL by mouth every 8 hours. - hydrOXYzine pamoate (VISTARIL) 25 mg capsule Take 1 capsule by mouth three times a day as needed for anxiety. - albuterol HFA (PROAIR HFA) 90 mcg/actuation inhaler Inhale 2 Puffs as instructed every 6 hours as needed. - zolpidem (AMBIEN) 10 mg Take 1 tablet by mouth at bedtime as needed (insomnia) for up to 90 days. - DULoxetine (CYMBALTA) 30 mg capsule Take 1 capsule by mouth once daily. - meloxicam (MOBIC) 15 mg tablet Take 1 tablet by mouth once daily. With food. - escitalopram oxalate (LEXAPRO) 20 mg tablet [...] 1 tablet by mouth once daily. - phenytoin (DILANTIN) 100 mg/4 mL susp Take 12 mL by mouth every 8 hours. - folic acid 1 mg tablet Take 1 tablet by mouth once daily. - MEDICAL SUPPLY Portable oxygen cylinders - ASPIR-LOW 81 mg EC tablet Take 1 tablet by mouth once daily. Problem List As Of Date 07/15/2023 Noted Resolved COUGH [R05.9] 04/01/2006 05/03/2006 OBST [...] disease) (H*08/11/2016 Chronic hypercapnic respiratory failure (HCC) [* (more content not included)... Normal [facility] CNOVon 07-14-2023 CNOV Office Visit (INTMWS ) LUIZA MAY ([id number]) 1955 F Date Time Provider Department 07/14/23 3:20 PM LISE MAJOR INTMWS During your visit today, we recorded the following information about you: Pulse Respiration Blood pressure Weight 104/minute 18/minute 120/68 61.2 kg Lise Major, PUBLIC WORKS MANAGER.CLEAN UP WORKER 07/14/2023 3:54 PM Signed CC: Patient presents with: COPD HPI: Luiza [...] STEREOTACTIC CORE BIOPSY 10/25/07 lsft ALLERGIES Entex [Phenylephrine-Guaifene sin] and Tetanus Vaccines And Toxoid MEDICATIONS furosemide [...] Cancer Mother R/T LUNG CANCER Heart Father PR Cancer Sister LUNG Social History Tobacco Use [...] membrane normal. Nose: Nose normal. Mouth/Throat: Lips: [place]. Mouth: Mucous membranes are moist. Pharynx: Oropharynx is clear. Cardiovascular: Rate and Rhythm: Normal rate and regular rhythm. Heart sounds: Normal heart sounds. Pulmonary: Effort: Pulmonary effort is normal. Breath sounds: Decreased breath sounds and wheezing (scattered) present. No rhonchi or rales. Muscul (more content not included)... Normal [facility] COVID AND INFLUENZA A/B AND RSV NAAT, ROUTINEon 07-14-2023 SARS-CoV-2 (COVID-19) RNA MERISSA+probe Ql (Unsp spec) COVID 19 RESULT: Not detected The method used is RT-PCR or an equivalent NAAT method. Reference Range (the expected result in uninfected individuals): Not detected INFLUENZA A PCR: Not detected INFLUENZA B PCR: Not detected RSV PCR: Detected Abnormal [facility] Comment on above: Performed By: #### C VFLRS ####[facility] LABCLIA [id number] [address] OF [facility] Jon 07-12-2023 CNPN Telephone (INTMWS) LUIZA MAY ([id number]) 1955 F Date Time Provider Department 07/12/23 MARYAM FRANCO INTWS During your visit today, we recorded the following information about you: Irena Norton 07/12/2023 11:06 AM Signed Patient has COPD and currently having cough and sinus drng- clear in color. x 2 days and is worried about COPD exacerbation again and does not want to have to hospital again. Patient is wishing to have the same meds as in the past. Tried to call patient back for verification of meds and no answer and mailbox is full. Pharmacy is [facility] please advise. Joan Bailey LPN, APRN.CLEAN UP WORKER 07/14/2023 7:26 AM Signed I agree she needs treatment but she really needs to be seen. How is she feeling today? Thank you Joan Johnson APRN.CLEAN UP WORKER Miranda ConnellYULI 07/14/2023 11:27 AM Signed Patient called earlier and scheduled her an appt with Lise Major for this afternoon. Patient said she was having problems with her COPD and body aches. She wanted to get rx before she had to go to the hospital and said had history of being on the ventilator if she does not get taken care of. Allergies As of Date: 07/12/2023 Noted Allergy Reaction ENTEX (PHENYLEPHRINE-GUAIFENE SIN) 04/22/2005 5 - Intolerance TETANUS VACCINES AND TOXOID 04/22/2005 7 - Swelling Date Reviewed: 05/06/2023 Reviewed by: Katty Alvarado Ma - Fully Assessed Reason for Visit: Appointment [186] Prescriptions as of 07/14/2023 - predniSONE (DELTASONE) 10 mg tablet Take 4 tabs daily x5 days, then 2 tabs daily for 5 days, then 1 tab daily for 5 days. - Benzonatate 200 mg capsule Take 1 capsule by mouth three times a day as needed. - furosemide (LASIX) 20 mg tablet Take 1 tablet by mouth two times a day. - ARIPiprazole (ABILIFY) 2 mg tablet Take 1 tablet by mouth once daily. - rOPINIRole (REQUIP) 1 mg tablet Take 1 tablet by mouth daily at bedtime. - Cholecalciferol, Vitamin D3, 25 mcg (1,000 unit) cap Take 1 capsule by mouth once daily. - phenytoin (DILANTIN) 125 mg/5 mL susp Take 4 mL by mouth every 8 hours. - hydrOXYzine pamoate (VISTARIL) 25 mg capsule Take 1 capsule by mouth three times a day as needed for anxiety. - albuterol HFA (PROAIR HFA) 90 mcg/actuation inhaler Inhale 2 Puffs as instructed every 6 hours as needed. - zolpidem (AMBIEN) 10 mg Take 1 tablet by mouth at bedtime as needed (insomnia) for up to 90 days. - DULoxetine (CYMBALTA) 30 mg capsule Take 1 capsule by mouth once daily. - meloxicam (MOBIC) 15 mg tablet Take 1 tablet by mouth once daily. With food. - escitalopram oxalate (LEXAPRO) 20 mg tablet [...] 1 tablet by mouth once daily. - phenytoin (DILANTIN) 100 mg/4 mL susp Take 12 mL by mouth every 8 hours. - folic acid 1 mg tablet Take 1 tablet by mouth once daily. - MEDICAL SUPPLY Portable oxygen cylinders - ASPIR-LOW 81 mg EC tablet Take 1 tablet by mouth once daily. Problem List As Of Date 07/12/2023 Noted Resolved COUGH [R05.9] 04/01/2006 05/03/2006 OBST [...] activity (HCC) [R56.9] 11/03/2022 Encounter Status:Closed by LISE MAJOR on 07/14/23 [facility] Jon 06-25-2023 CNPN Telephone (INTMWS) LUIZA MAY ([id number]) 1955 F Date Time Provider Department 06/25/23 MARYAM FRANCO During your visit today, we recorded the following information about you: Nellie Perry 06/25/2023 11:34 AM Signed Luiza is calling Maryam Franco MD office today. Patient was at her pharmacy today and they don't have record of receiving medication sent yesterday. Please contact pharmacy -Pharmacy confirmed and correct phenytoin (DILANTIN) 125 mg/5 mL susp 237 mL 4 06/24/2023 -- Sig: Take 4 mL by mouth every 8 hours. Sent to pharmacy as: phenytoin (DILANTIN) 125 mg/5 mL susp Class: Normal Route: ORAL Order: [id number] E-Prescribing Status: Receipt confirmed by pharmacy (06/24/2023 4:01 PM EST Katty Alvarado Ma 06/25/2023 12:15 PM Signed Tried calling Pharmacy, closed for lunch. Will try back at 1:00. Renee Aguilera Ma 06/29/2023 11:34 AM Signed Spoke with [facility] pharmacy. They did receive patient's rx. TC to patient - LM to return call. Katelynn Giraldo LPN 06/29/2023 1:50 PM Signed Pt notified of same. 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 Katelynn Giraldo LPN Allergies As of Date: 06/25/2023 Noted Allergy Reaction ENTEX (PHENYLEPHRINE-GUAIFENE SIN) 04/22/2005 5 - Intolerance TETANUS VACCINES AND TOXOID 04/22/2005 7 - Swelling Date Reviewed: 05/06/2023 Reviewed by: Katty Alvarado Ma - Fully Assessed Reason for Visit: Medication Question [2678] Prescriptions as of 06/29/2023 - phenytoin (DILANTIN) 125 mg/5 mL susp Take 4 mL by mouth every 8 hours. - hydrOXYzine pamoate (VISTARIL) 25 mg capsule Take 1 capsule by mouth three times a day as needed for anxiety. - albuterol HFA (PROAIR HFA) 90 mcg/actuation inhaler Inhale 2 Puffs as instructed every 6 hours as needed. - zolpidem (AMBIEN) 10 mg Take 1 tablet by mouth at bedtime as needed (insomnia) for up to 90 days. - DULoxetine (CYMBALTA) 30 mg capsule Take 1 capsule by mouth once daily. - meloxicam (MOBIC) 15 mg tablet Take 1 tablet by mouth once daily. With food. - rOPINIRole (REQUIP) 1 mg tablet Take 1 tablet by mouth daily at bedtime. - furosemide (LASIX) 20 mg tablet Take 1 tablet by mouth two times a day. - ARIPiprazole (ABILIFY) 2 mg tablet Take 1 tablet by mouth once daily. - escitalopram oxalate [...] 1 tablet by mouth once daily. - phenytoin (DILANTIN) 100 mg/4 mL susp [...] 90 mcg/actuation inhaler EVERY 6 HOURS NEEDED Problem List As Of Date 06/25/2023 Noted Resolved COUGH [R05.9] 04/01/2006 05/03/2006 OBST [...] activity (HCC) [R56.9] 11/03/2022 Encounter Status:Closed by KATELYNN GIRALDO on 06/29/23 [facility]AL[facility] ([id number]) 1955 F Date Time Provider Department 06/10/23 MARYAM FRANCO INTMWS During your visit today, we recorded the following information about you: Gisell Mendoza RN 06/10/2023 3:37 PM Signed Patient requesting refill of her albuterol inhaler. Pt states she only has 2 puffs left on her current inhaler. Asking for inhaler to be sent to pharmacy today. Per past notes, patient is poor historian, and it appears albuterol has not been ordered in some time for patient and has not followed up with Pulmonary as advised. Will send message to Edilberto SUAREZ for review, as PCP is OOO today. Please advise patient. Thank you. Edilberto Magana, AUNG.CITY DISPATCHER 06/10/2023 4:40 PM Signed OK for inhaler Allergies As of Date: 06/10/2023 Noted Allergy Reaction ENTEX (PHENYLEPHRINE-GUAIFENE SIN) 04/22/2005 5 - Intolerance TETANUS VACCINES AND TOXOID 04/22/2005 7 - Swelling Date Reviewed: 05/06/2023 Reviewed by: Katty Alvarado Ma - Fully Assessed Reason for Visit: Medication Request [138] Order(s):albuterol HFA (PROAIR HFA) 90 mcg/actuation inhalerInhale 2 Puffs as instructed every 6 hours as needed.Disp: 1 EachRfl: 5 Prescriptions as of 06/10/2023 - albuterol HFA (PROAIR HFA) 90 mcg/actuation inhaler Inhale 2 Puffs as instructed every 6 hours as needed. - zolpidem (AMBIEN) 10 mg Take 1 tablet by mouth at bedtime as needed (insomnia) for up to 90 days. - DULoxetine (CYMBALTA) 30 mg capsule Take 1 capsule by mouth once daily. - meloxicam (MOBIC) 15 mg tablet Take 1 tablet by mouth once daily. With food. - rOPINIRole (REQUIP) 1 mg tablet Take 1 tablet by mouth daily at bedtime. - furosemide (LASIX) 20 mg tablet Take 1 tablet by mouth two times a day. - ARIPiprazole (ABILIFY) 2 mg tablet Take 1 tablet by mouth once daily. - escitalopram oxalate [...] 1 tablet by mouth once daily. - phenytoin (DILANTIN) 125 mg/5 mL susp Take 4 mL by mouth every 8 hours. - phenytoin (DILANTIN) 100 mg/4 mL susp [...] 90 mcg/actuation inhaler EVERY 6 HOURS NEEDED Problem List As Of Date 06/10/2023 Noted Resolved COUGH [R05.9] 04/01/2006 05/03/2006 OBST [...] [S06.5XAA] 11/03/2022 Seizure-like activity (HCC) [R56.9] 11/03/2022 Prescriptions ordered this encounter Disp Refills Start End ALBUTEROL SULFATE HFA 90 MCG/ACTUATI* 1 Ea* 5 06/10/2023 Cmt: Generic or brand: dispense inhaler preferred by patient/insurance unless KHOA flag is selected. Route: INHALATION Sig: Inhale 2 Puffs as instructed every 6 hours as needed. Medications Discontinued During This Encounter Prescriptions - albuterol HFA (PROAIR HFA) 90 mcg/actuation inhaler (Discontinued) Inhale 2 Puffs as instructed every 6 hours as needed. Encounter Status:Closed by EDILBERTO MAGANA on 06/10/23 [facility] Jon 05-18-2023 YASIR Telephone (INTMWS) YOVANNYLUIZA ROGERS ([id number]) 1955 F Date Time Provider Department 05/18/23 JOAN JOHNSON During your visit today, we recorded the following information about you: Sushila Espinoza, FINESSE 05/18/2023 11:59 AM Signed Patient calls to let provider know that the Ambien Cr 6.25 mg and Ambien 5 mg 11/ tablets isn't effective for sleep. Patient is requesting Ambien 10 mg be sent to [facility]. Pended per OV note 05/06/2023. FINESSE Rodas Barbara, RN 05/20/2023 10:35 AM Signed Pt is calling again as she is still not sleeping and is up and down all night long. Her current dose of Ambien is not helping at all. Wondering when Joan is going to increase her medications. She is getting aggravated and frustrated. Joan Johnson APRN.CNP 05/20/2023 11:23 AM Signed She has never gotten the ambien 6.25mg CR as it was too expensive. She also has enough of the 5mg to take two and should do so prior to getting the 10mg dose filled. Thank you Jona Johnson APRN.JAMES PDMP website checked and validated. All prescriptions have been APPROPRIATELY filled. No suspicious activity was identified. 05/20/2023 by Joan Johnson APRN.Heidy Iyer 05/20/2023 1:25 PM Signed Tried to call patient and could not leave a message because her mailbox is full. Heidy Mosqueda Allergies As of Date: 05/18/2023 Noted Allergy Reaction ENTEX (PHENYLEPHRINE-GUAIFENE SIN) 04/22/2005 5 - Intolerance TETANUS VACCINES AND TOXOID 04/22/2005 7 - Swelling Date Reviewed: 05/06/2023 Reviewed by: Katty Alvarado Ma - Fully Assessed Reason for Visit: Patient Update [1234] Visit Diagnosis:Insomnia, unspecified type [G47.00] Order(s):zolpidem (AMBIEN) 10 mgTake 1 tablet by mouth at bedtime as needed (insomnia) for up to 90 days.Disp: 30 tabletRfl: 2 Prescriptions as of 05/20/2023 - zolpidem (AMBIEN) 10 mg Take 1 tablet by mouth at bedtime as needed (insomnia) for up to 90 days. - DULoxetine (CYMBALTA) 30 mg capsule Take 1 capsule by mouth once daily. - meloxicam (MOBIC) 15 mg tablet Take 1 tablet by mouth once daily. With food. - rOPINIRole (REQUIP) 1 mg tablet Take 1 tablet by mouth daily at bedtime. - furosemide (LASIX) 20 mg tablet Take 1 tablet by mouth two times a day. - ARIPiprazole (ABILIFY) 2 mg tablet Take 1 tablet by mouth once daily. - escitalopram oxalate [...] 1 tablet by mouth once daily. - hydrOXYzine pamoate (VISTARIL) 25 mg capsule Take 1 capsule by mouth three times daily as needed for anxiety. - phenytoin (DILANTIN) 125 mg/5 mL susp Take 4 mL by mouth every 8 hours. - phenytoin (DILANTIN) 100 mg/4 mL susp [...] as needed. Problem List As Of Date 05/18/2023 Noted Resolved COUGH [R05.9] 04/01/2006 05/03/2006 OBST [...] [S06.5XAA] 11/03/2022 Seizure-like activity (HCC) [R56.9] 11/03/2022 Prescriptions ordered this encounter Disp Refills Start End ZOLPIDEM 10 MG TABLET 30 t* 2 05/20/2023 08/18/2023 Route: ORAL Sig: Take 1 tablet by mouth at bedtime as needed (insomnia) f (more content not included)... Normal [facility] Jon 05-10-2023 YASIR Telephone (INTMWS) YADIRALUIZA ([id number]) 1955 F Date Time Provider Department 05/10/23 MARYAM FRANCO During your visit today, we recorded the following information about you: Jackie Potter 05/10/2023 10:31 AM Signed Requesting a med prescribed by Dr. Duarte, her desk attendant who is not at the [facility]. Patient will contact original prescribing doctor to obtain Symbicort. Katty Alvarado Ma 05/10/2023 10:58 AM Signed Patient was instructed in her OV last week to contact prescribing provider. Allergies As of Date: 05/10/2023 Noted Allergy Reaction ENTEX (PHENYLEPHRINE-GUAIFENE SIN) 04/22/2005 5 - Intolerance TETANUS VACCINES AND TOXOID 04/22/2005 7 - Swelling Date Reviewed: 05/06/2023 Reviewed by: Katty Alvarado Ma - Fully Assessed Reason for Visit: FYI-No Action Needed [265] Prescriptions as of 05/10/2023 - DULoxetine (CYMBALTA) 30 mg capsule Take 1 capsule by mouth once daily. - meloxicam (MOBIC) 15 mg tablet Take 1 tablet by mouth once daily. With food. - rOPINIRole (REQUIP) 1 mg tablet Take 1 tablet by mouth daily at bedtime. - furosemide (LASIX) 20 mg tablet Take 1 tablet by mouth two times a day. - ARIPiprazole (ABILIFY) 2 mg tablet Take 1 tablet by mouth once daily. - zolpidem (AMBIEN) 5 mg tablet Take 1.5 tablets by mouth at bedtime as needed for sedation for up to 28 days. - escitalopram oxalate (LEXAPRO) 20 mg tablet [...] 1 tablet by mouth once daily. - hydrOXYzine pamoate (VISTARIL) 25 mg capsule Take 1 capsule by mouth three times daily as needed for anxiety. - phenytoin (DILANTIN) 125 mg/5 mL susp Take 4 mL by mouth every 8 hours. - phenytoin (DILANTIN) 100 mg/4 mL susp [...] as needed. Problem List As Of Date 05/10/2023 Noted Resolved COUGH [R05.9] 04/01/2006 05/03/2006 OBST [...] activity (HCC) [R56.9] 11/03/2022 Encounter Status:Closed by KATTY ALVARADO MA on 05/10/23 [facility] YASIR Telephone (INTMWS) LUIZA MAY ([id number]) 1955 F Date Time Provider Department 05/10/23 JOAN JOHNSON During your visit today, we recorded the following information about you: Katty Alvarado Ma 05/10/2023 3:59 PM Signed ----- Message from Joan Johnson APRN.CLEAN UP WORKER sent at 05/10/2023 12:50 PM EST ----- Please let patient know that blood work overall is within acceptable ranges. Thank you FLACA Gil Ma, Jane 05/10/2023 4:00 PM Signed T/C patient, VM not set up. Tao Meyers RN 05/12/2023 11:42 AM Signed Attempted to call pt. No answer and no VM set up. Called and spoke with daughter Ameena-notified of results. Allergies As of Date: 05/10/2023 Noted Allergy Reaction ENTEX (PHENYLEPHRINE-GUAIFENE SIN) 04/22/2005 5 - Intolerance TETANUS VACCINES AND TOXOID 04/22/2005 7 - Swelling Date Reviewed: 05/06/2023 Reviewed by: Katty Alvarado Ma - Fully Assessed Reason for Visit: Results [95] Prescriptions as of 05/12/2023 - DULoxetine (CYMBALTA) 30 mg capsule Take 1 capsule by mouth once daily. - meloxicam (MOBIC) 15 mg tablet Take 1 tablet by mouth once daily. With food. - rOPINIRole (REQUIP) 1 mg tablet Take 1 tablet by mouth daily at bedtime. - furosemide (LASIX) 20 mg tablet Take 1 tablet by mouth two times a day. - ARIPiprazole (ABILIFY) 2 mg tablet Take 1 tablet by mouth once daily. - zolpidem (AMBIEN) 5 mg tablet Take 1.5 tablets by mouth at bedtime as needed for sedation for up to 28 days. - escitalopram oxalate (LEXAPRO) 20 mg tablet [...] 1 tablet by mouth once daily. - hydrOXYzine pamoate (VISTARIL) 25 mg capsule Take 1 capsule by mouth three times daily as needed for anxiety. - phenytoin (DILANTIN) 125 mg/5 mL susp Take 4 mL by mouth every 8 hours. - phenytoin (DILANTIN) 100 mg/4 mL susp [...] as needed. Problem List As Of Date 05/10/2023 Noted Resolved COUGH [R05.9] 04/01/2006 05/03/2006 OBST [...] activity (HCC) [R56.9] 11/03/2022 Encounter Status:Closed by TAO MEYERS on 05/12/23 Normal [facility] Basic metabolic 2000 panelon 05-06-2023 Anion gap [Moles/Vol] 10 mmol/L Normal 9-18 [facility] Comment on above: Order Comment: Speci men Type: BLOOD SPECIMENOrdering Facility: [facility] Address: [address] [place] [address] Performed By: #### 2 276-4, 07560-8, 96968-3 ####[facility] LABCLIA [id number] [facility] [id number] [address] [place] Calcium [Mass/Vol] 9.4 mg/dL Normal 8.5-10.2 [facility] Comment on above: Order Comment: Speci men Type: BLOOD SPECIMENOrdering Facility: [facility] Address: [address] [place] [address] Performed By: #### 2 276-4, 92042-7, 11349-9 ####[facility] LABCLIA [id number] [place] [address] [place] Chloride [Moles/Vol] 101 mmol/L Normal 97-105 [facility] Comment on above: Order Comment: Speci men Type: BLOOD SPECIMENOrdering Facility: [facility] Address: [address] [address] Performed By: #### 2 276-4, 35470-7, 46112-8 ####[facility] LABCLIA [id number] [place] [address] [place] CO2 [Moles/Vol] 31 mmol/L High 22-30 [facility] Comment on above: Order Comment: Speci men Type: BLOOD SPECIMENOrdering Facility: [facility] Address: [address] [place] [address] Performed By: #### 2 276-4, 41709-4, 99211-5 ####[facility] LABCLIA [id number] [place] [address] [place] Creatinine [Mass/Vol] 0.84 mg/dL Normal 0.58-0.96 [facility] Comment on above: Order Comment: Speci men Type: BLOOD SPECIMENOrdering Facility: [facility] Address: [address] [place] [address] Performed By: #### 2 276-4, 27330-1, 41608-1 ####[facility] LABCLIA [id number] [place] [id number] [place] Creatinine and Glomerular filtration rate.predicted panel (S/P/Bld) 76 mL/min/1.73m??? Normal >=60 [facility] Comment on above: Order Comment: Kaela burns Type: BLOOD SPECIMENOrdering Facility: [facility] Address: [address] [address] Result Comment: Sierra mated Glomerular Filtration Rate (eGFR) is calculated using the 2020 CKD-EPI creatinine equation. This equation utilizes serum creatinine, sex, and age as parameters. The creatinine assay has traceable calibration to isotope dilution-mass spectrometry. Refer to KDIGO guidelines for clinical interpretation. In patients with unstable renal function, e.g. those with acute kidney injury, the eGFR may not accurately reflect actual GFR. Performed By: #### 2 276-4, 78066-4, 55552-7 ####[facility] [id number] [place] [address] [place] Glucose [Mass/Vol] 102 mg/dL High 74-99 [facility] Comment on above: Order Comment: Kaela burns Type: BLOOD SPECIMENOrdering Facility: [facility] Address: [address] [place] [address] Result Comment: The [place] Diabetes Association (ADA) provides guidance for cutoff values for fasting glucose and random glucose. The ADA defines fasting as no caloric intake for at least 8 hours. Fasting plasma glucose results between 100 to 125 [...] Standards of Medical Care in Diabetes 2016, [place] [employer]. Diabetes Care. 2016.39(Suppl 1). Performed By: #### 2 276-4, 46962-1, 95497-0 ####[facility] [id number] [place] [address] [place] Potassium [Moles/Vol] 5.1 mmol/L Normal 3.7-5.1 [facility] Comment on above: Order Comment: Speci men Type: BLOOD SPECIMENOrdering Facility: [facility] Address: [address] [place] [address] Performed By: #### 2 276-4, 42149-4, 73792-3 ####[facility] LABIA [id number] [place] [address] [place] Sodium [Moles/Vol] 142 mmol/L Normal 136-144 [facility] Comment on above: Order Comment: Speci men Type: BLOOD SPECIMENOrdering Facility: [facility] Address: [address] [place] [address] Performed By: #### 2 276-4, 97466-8, 82684-6 ####[facility] LABIA [id number] [place] [address] [place] Urea nitrogen [Mass/Vol] 20 mg/dL Normal 7-21 [facility] Comment on above: Order Comment: Speci men Type: BLOOD SPECIMENOrdering Facility: [facility] Address: [address] [address] Performed By: #### 2 276-4, 10489-1, 25120-4 ####[facility] LABIA [id number] [place] [address] [place] CBC W Auto Differential pane l (Bld)on 05-06-2023 Basophils (Bld) [#/Vol] 0.09 10*3/uL Normal <0.11 [facility] Comment on above: Order Comment: Speci men Type: BLOOD SPECIMENOrdering Facility: [facility] Address: [address] [place] [address] Performed By: #### 5 7021-8 ####[facility] LABIA [id number] [place] [address] [place] Basophils/100 WBC (Bld) 1.0 % Normal C [facility] Comment on above: Order Comment: Speci men Type: BLOOD SPECIMENOrdering Facility: [facility] Address: [address] [place] [address] Performed By: #### 5 7021-8 ####[facility] LABCLIA [id number] [place] [address] [place] Differential cell count method Nom (Bld) Auto Normal [facility] Comment on above: Order Comment: Speci men Type: BLOOD SPECIMENOrdering Facility: [facility] Address: [address] [place] [address] Performed By: #### 5 7021-8 ####[facility] LABCLIA [id number] [place] [address] [place] Eosinophils (Bld) [#/Vol] 0.80 10*3/uL High <0.46 [facility] Comment on above: Order Comment: Speci men Type: BLOOD SPECIMENOrdering Facility: [facility] Address: [address] [place] [address] Performed By: #### 5 7021-8 ####[facility] LABCLIA [id number] [place] [address] [place] Eosinophils/100 WBC (Bld) 9.3 % Normal [facility] Comment on above: Order Comment: Speci men Type: BLOOD SPECIMENOrdering Facility: [facility] Address: [address] [place] [address] Performed By: #### 5 7021-8 ####[facility] LABCLIA [id number] [place] [address] [place] Erythrocyte distribution width (RBC) [Ratio] 14.1 % Normal 11.5-15.0 [facility] Comment on above: Order Comment: Speci men Type: BLOOD SPECIMENOrdering Facility: [facility] Address: [address] [place] [address] Performed By: #### 5 7021-8 ####[facility] LABCLIA [id number] [place] [address] [place] Hematocrit (Bld) [Volume fraction] 37.3 % Normal 36.0-46.0 [facility] Comment on above: Order Comment: Speci men Type: BLOOD SPECIMENOrdering Facility: [facility] Address: [address] [place] [address] Performed By: #### 5 7021-8 ####[facility] LABIA [id number] [place] [address] [place] Hemoglobin (Bld) [Mass/Vol] 11.5 g/dL Normal 11.5-15.5 [facility] Comment on above: Order Comment: Speci men Type: BLOOD SPECIMENOrdering Facility: [facility] Address: [address] [place] [address] Performed By: #### 5 7021-8 ####[facility] LABIA [id number] [place] [address] [place] Immature granulocytes (Bld) [#/Vol] 0.05 10*3/uL Normal <0.10 [facility] Comment on above: Order Comment: Speci men Type: BLOOD SPECIMENOrdering Facility: [facility] Address: [address] [place] [address] Performed By: #### 5 7021-8 ####[facility] LABIA [id number] [place] [address] [place] Immature granulocytes/100 WBC (Bld) 0.6 % Normal [facility] Comment on above: Order Comment: Speci men Type: BLOOD SPECIMENOrdering Facility: [facility] Address: [address] [place] [address] Performed By: #### 5 7021-8 ####[facility] LABIA [id number] [place] [address] [place] Lymphocytes (Bld) [#/Vol] 2.39 10*3/uL Normal 1.00-4.00 [facility] Comment on above: Order Comment: Speci men Type: BLOOD SPECIMENOrdering Facility: [facility] Address: [address] [place] [address] Performed By: #### 5 7021-8 ####[facility] LABIA [id number] [place] [address] [place] Lymphocytes/100 WBC (Bld) 27.9 % Normal [facility] Comment on above: Order Comment: Speci men Type: BLOOD SPECIMENOrdering Facility: [facility] Address: [address] [place] [address] Performed By: #### 5 7021-8 ####[facility] LABIA [id number] [place] [address] [place] MCH (RBC) [Entitic mass] 28.8 pg Normal 26.0-34.0 [facility] Comment on above: Order Comment: Speci men Type: BLOOD SPECIMENOrdering Facility: [facility] Address: [address] [place] [address] Performed By: #### 5 7021-8 ####[facility] LABIA [id number] [place] [address] [place] MCHC (RBC) [Mass/Vol] 30.8 g/dL Normal 30.5-36.0 [facility] Comment on above: Order Comment: Speci men Type: BLOOD SPECIMENOrdering Facility: [facility] Address: [address] [place] [address] Performed By: #### 5 7021-8 ####[facility] LABIA [id number] [place] [address] [place] MCV (RBC) [Entitic vol] 93.5 fL Normal 80.0-100.0 C [facility] Comment on above: Order Comment: Speci men Type: BLOOD SPECIMENOrdering Facility: [facility] Address: [address] [place] [address] Performed By: #### 5 7021-8 ####[facility] LABIA [id number] [place] [address] [place] Monocytes (Bld) [#/Vol] 0.93 10*3/uL High <0.87 [facility] Comment on above: Order Comment: Speci men Type: BLOOD SPECIMENOrdering Facility: [facility] Address: [address] [place] [address] Performed By: #### 5 7021-8 ####[facility] LABCLIA [id number] [place] [address] [place] Monocytes/100 WBC (Bld) 10.8 % Normal [facility] Comment on above: Order Comment: Speci men Type: BLOOD SPECIMENOrdering Facility: [facility] Address: [address] [place] [address] Performed By: #### 5 7021-8 ####[facility] LABCLIA [id number] [place] [address] [place] Neutrophils (Bld) [#/Vol] 4.32 10*3/uL Normal 1.45-7.50 [facility] Comment on above: Order Comment: Speci men Type: BLOOD SPECIMENOrdering Facility: [facility] Address: [address] [place] [address] Performed By: #### 5 7021-8 ####[facility] LABCLIA [id number] [place] [address] [place] Neutrophils/100 WBC (Bld) 50.4 % Normal [facility] Comment on above: Order Comment: Speci men Type: BLOOD SPECIMENOrdering Facility: [facility] Address: [address] [place] [address] Performed By: #### 5 7021-8 ####[facility] LABCLIA [id number] [place] [address] [place] Nucleated RBC (Bld) [#/Vol] 10*3/uL Normal <0.01 [facility] Comment on above: Order Comment: Speci men Type: BLOOD SPECIMENOrdering Facility: [facility] Address: [address] [place] [address] Performed By: #### 5 7021-8 ####[facility] LABCLIA [id number] [place] [address] [place] Nucleated RBC/100 WBC (Bld) [Ratio] 0.0 /100 WBC Normal [facility] Comment on above: Order Comment: Speci men Type: BLOOD SPECIMENOrdering Facility: [facility] Address: [address] [place] [address] Performed By: #### 5 7021-8 ####[facility] LABIA [id number] [place] [address] [place] Platelet mean volume (Bld) [Entitic vol] 10.7 fL Normal 9.0-12.7 [facility] Comment on above: Order Comment: Speci men Type: BLOOD SPECIMENOrdering Facility: [facility] Address: [address] [place] [address] Performed By: #### 5 7021-8 ####[facility] LABIA [id number] [place] [address] [place] Platelets (Bld) [#/Vol] 228 10*3/uL Normal 150-400 [facility] Comment on above: Order Comment: Speci men Type: BLOOD SPECIMENOrdering Facility: [facility] Address: [address] [place] [address] Performed By: #### 5 7021-8 ####[facility] LABIA [id number] [place] [address] [place] RBC (Bld) [#/Vol] 3.99 10*6/uL Normal 3.90-5.20 [facility] Comment on above: Order Comment: Speci men Type: BLOOD SPECIMENOrdering Facility: [facility] Address: [address] [place] [address] Performed By: #### 5 7021-8 ####[facility] LABIA [id number] [place] [address] [place] WBC (Bld) [#/Vol] 8.58 10*3/uL Normal 3.70-11.00 [facility] Comment on above: Order Comment: Speci men Type: BLOOD SPECIMENOrdering Facility: [facility] Address: [address] [place] [id number] Performed By: #### 5 7021-8 ####[facility] LABCLIA [id number] [address] [id number] [id number] [place] CNOVon 05-06-2023 CNOV Office Visit (INTMWS ) LUIZA MAY ([id number]) 1955 F Date Time Provider Department 05/06/23 7:20 AM JOAN JOHNSON INTMSEN During your visit today, we recorded the following information about you: Pulse Respiration Blood pressure Weight 97/minute 16/minute 122/68 60.3 kg Joan Johnson APRN.CLEAN UP WORKER 05/06/2023 9:06 AM Signed CC: Patient presents with: Recheck: Medication follow [...] STEREOTACTIC CORE BIOPSY 10/25/07 lsft ALLERGIES Entex [Phenylephrine-Guaifene sin] and Tetanus Vaccines And Toxoid MEDICATIONS escitalopram [...] tablet by mouth once daily. metoprolol succinate E (more content not included)... Normal [facility] Ferritin SerPl-mCncon 2022 Ferritin [Mass/Vol] 166.0 ng/mL Normal 14.7-205.1 [facility] Comment on above: Order Comment: Speci men Type: BLOOD SPECIMENOrdering Facility: [facility] Address: [address] [place] [address] Performed By: #### 2 276-4, 38481-1, 29365-7 ####[facility] LABCLIA [id number] [place] [address] [place] HbA1c (Bld)on 05-06-2023 Average glucose Estimated from glycated hemoglobin (Bld) [Mass/Vol] 97 mg/dL Normal [facility] Comment on above: Order Comment: Speci men Type: BLOOD SPECIMENOrdering Facility: [facility] Address: [address] [place] [address] Result Comment: eAG: (Estimated average glucose) is a calculated value from HgbA1c and is wine sales representative of the average blood glucose level in the last 2-3 month period. Performed By: #### 5 5454-3 ####[facility] [id number] [place] [address] [place] HbA1c (Bld) [Mass fraction] 5.0 % Normal 4.3-5.6 [facility] Comment on above: Order Comment: Speci men Type: BLOOD SPECIMENOrdering Facility: [facility] Address: [address] [address] Result Comment: [place] Diabetes Association guidelines indicate that patients with HgbA1c in the range 5.7-6.4% are at increased risk for development of diabetes, and intervention by lifestyle modification may be beneficial. HgbA1c greater or equal to 6.5% is considered diagnostic of diabetes. Performed By: #### 5 5454-3 ####[facility] [id number] [place] [address] [place] Iron and Iron binding capaci ty panelon 05-06-2023 Iron [Mass/Vol] 87 ug/dL Normal 41-186 [facility] Comment on above: Order Comment: Speci men Type: BLOOD SPECIMENOrdering Facility: [facility] Address: [address] [place] [address] Performed By: #### 2 276-4, 30729-9, 57828-6 ####[facility] [id number] [place] [address] [place] Iron binding capacity [Mass/Vol] 287 ug/dL Normal 232-386 [facility] Comment on above: Order Comment: Speci men Type: BLOOD SPECIMENOrdering Facility: [facility] Address: [address] [place] [address] Performed By: #### 2 276-4, 37186-2, 64645-6 ####[facility] [id number] [place] [address] [place] Iron/TIBC [Molar ratio] 30.3 % Normal 15.0-57.0 [facility] Comment on above: Order Comment: Speci men Type: BLOOD SPECIMENOrdering Facility: [facility] Address: [address] [address] Performed By: #### 2 276-4, 30384-1, 10527-1 ####[facility] [id number] [place] [address] [place] CBC W Auto Differential pane l (Bld)on 08-17-2022 Basophils (Bld) [#/Vol] 10*3/uL Normal <0.11 [facility] Comment on above: Order Comment: Speci men Type: BLOOD SPECIMEN [facility] Address: [address] [place] [address] Performed By: #### 2 4323-8, , 2776-07 #### [facility] CLIA [id number] [address] [place] [address] [place] Basophils/100 WBC (Bld) 0.2 % Normal [facility] Comment on above: Order Comment: Speci men Type: BLOOD SPECIMEN [facility] Address: [address] [place] [address] Performed By: #### 2 4323-8, , 2776-07 #### [facility] CLIA [id number] [facility] [place] Differential cell count method Nom (Bld) Auto Normal [facility] Comment on above: Order Comment: Speci men Type: BLOOD SPECIMEN [facility] Address: [address] [place] [address] Performed By: #### 2 4323-8, , 2776-07 #### [facility] CLIA [id number] [address] [place] [address] [place] Eosinophils (Bld) [#/Vol] 0.07 10*3/uL Normal <0.46 [facility] Comment on above: Order Comment: Speci men Type: BLOOD SPECIMEN [facility] Address: [address] [place] [address] Performed By: #### 2 4323-8, , 2776-07 #### [facility] CLIA [id number] [address] [place] [address] [place] Eosinophils/100 WBC (Bld) 1.5 % Normal [facility] Comment on above: Order Comment: Speci men Type: BLOOD SPECIMEN [facility] Address: [address] [place] [address] Performed By: #### 2 4323-8, , 2776-07 #### [facility] CLIA [id number] [address] [place] [address] [place] Erythrocyte distribution width (RBC) [Ratio] 14.4 % Normal 11.5-15.0 [facility] Comment on above: Order Comment: Speci men Type: BLOOD SPECIMEN [facility] Address: [address] [place] [address] Performed By: #### 2 4323-8, , 2776-07 #### [facility] CLIA [id number] [address] [place] [address] [place] Hematocrit (Bld) [Volume fraction] 37.8 % Normal 36.0-46.0 [facility] Comment on above: Order Comment: Speci men Type: BLOOD SPECIMEN [facility] Address: [address] [place] [address] Performed By: #### 2 4323-8, , 2776-07 #### [facility] CLIA [id number] [address] [place] [address] [place] Hemoglobin (Bld) [Mass/Vol] 11.2 g/dL Low 11.5-15.5 [facility] Comment on above: Order Comment: Speci men Type: BLOOD SPECIMEN [facility] Address: [address] [place] [address] Performed By: #### 2 4323-8, , 2776-07 #### [facility] CLIA [id number] [address] [place] [address] [place] Immature granulocytes (Bld) [#/Vol] 10*3/uL Normal <0.10 [facility] Comment on above: Order Comment: Speci men Type: BLOOD SPECIMEN [facility] Address: [address] [place] [address] Performed By: #### 2 4323-8, , 2776-07 #### [facility] CLIA [id number] [address] [place] [address] [place] Immature granulocytes/100 WBC (Bld) 0.4 % Normal [facility] Comment on above: Order Comment: Speci men Type: BLOOD SPECIMEN [facility] Address: [address] [place] [address] Performed By: #### 2 4323-8, , 2776-07 #### [facility] CLIA [id number] [address] [place] [address] [place] Lymphocytes (Bld) [#/Vol] 1.42 10*3/uL Normal 1.00-4.00 [facility] Comment on above: Order Comment: Speci men Type: BLOOD SPECIMEN [facility] Address: [address] [place] [address] Performed By: #### 2 4323-8, , 2776-07 #### [facility] CLIA [id number] [address] [place] [address] [place] Lymphocytes/100 WBC (Bld) 30.8 % Normal [facility] Comment on above: Order Comment: Speci men Type: BLOOD SPECIMEN [facility] Address: [address] [address] Performed By: #### 2 4323-8, 47670-1, 2776-07 #### [facility] CLIA [id number] [address] [place], [place] [address] [facility] [place] MCH (RBC) [Entitic mass] 28.3 pg Normal 26.0-34.0 [facility] Comment on above: Order Comment: Speci men Type: BLOOD SPECIMEN [facility] Address: [address] [address] Performed By: #### 2 4323-8, , 2776-07 #### [facility] CLIA [id number] [address] [place] [address] [place] MCHC (RBC) [Mass/Vol] 29.6 g/dL Low 30.5-36.0 [facility] Comment on above: Order Comment: Speci men Type: BLOOD SPECIMEN [facility] Address: [address] [place] [address] Performed By: #### 2 4323-8, , 2776-07 #### [facility] CLIA [id number] [address] [place] [address] [place] MCV (RBC) [Entitic vol] 95.5 fL Normal 80.0-100.0 [facility] Comment on above: Order Comment: Speci men Type: BLOOD SPECIMEN [facility] Address: [address] [address] Performed By: #### 2 4323-8, , 2776-07 #### [facility] CLIA [id number] [address] [place] [address] [place] Monocytes (Bld) [#/Vol] 0.61 10*3/uL Normal <0.87 [facility] Comment on above: Order Comment: Speci men Type: BLOOD SPECIMEN [facility] Address: [address] [place] [address] Performed By: #### 2 4323-8, , 2776-07 #### [facility] CLIA [id number] [address] [place] [address] [place] Monocytes/100 WBC (Bld) 13.2 % Normal [facility] Comment on above: Order Comment: Speci men Type: BLOOD SPECIMEN [facility] Address: [address] [place] [address] Performed By: #### 2 4323-8, , 2776-07 #### [facility] CLIA [id number] [address] [place] [address] [place] Neutrophils (Bld) [#/Vol] 2.48 10*3/uL Normal 1.45-7.50 [facility] Comment on above: Order Comment: Speci men Type: BLOOD SPECIMEN [facility] Address: [address] [place] [address] Performed By: #### 2 4328, , 2776-07 #### [facility] CLIA [id number] [address] [place] [address] [place] [facility] [place] Neutrophils/100 WBC (Bld) 53.9 % Normal [facility] Comment on above: Order Comment: Speci men Type: BLOOD SPECIMEN [facility] Address: [address] [place] [address] Performed By: #### 2 4323-8, , 2776-07 #### [facility] CLIA [id number] [address] [place] [address] [place] Nucleated RBC (Bld) [#/Vol] 10*3/uL Normal <0.01 [facility] Comment on above: Order Comment: Speci men Type: BLOOD SPECIMEN [facility] Address: [address] [place] [address] Performed By: #### 2 4323-8, , 2776-07 #### [facility] CLIA [id number] [address] [place] [address] [place] Nucleated RBC/100 WBC (Bld) [Ratio] 0.0 /100 WBC Normal [facility] Comment on above: Order Comment: Speci men Type: BLOOD SPECIMEN [facility] Address: [address] [place] [address] Performed By: #### 2 4323-8, 40681-3, 2776- #### [facility] CLIA [id number] [address] [place] [address] [place] Platelet mean volume (Bld) [Entitic vol] 10.2 fL Normal 9.0-12.7 [facility] Comment on above: Order Comment: Speci men Type: BLOOD SPECIMEN [facility] Address: [address] [place] [address] Performed By: #### 2 4323-8, , 2776-07 #### [facility] CLIA [id number] [address] [place] [address] [place] Platelets (Bld) [#/Vol] 130 10*3/uL Low 150-400 [facility] Comment on above: Order Comment: Speci men Type: BLOOD SPECIMEN [facility] Address: [address] [place] [address] Result Comment: No c lot detected. Performed By: #### 2 4323-8, , 2776-07 #### [facility] CLIA [id number] [address] [place] [address] [place] RBC (Bld) [#/Vol] 3.96 10*6/uL Normal 3.90-5.20 [facility] Comment on above: Order Comment: Speci men Type: BLOOD SPECIMEN [facility] Address: [address] [place] [address] Performed By: #### 2 4323-8, , 2776-07 #### [facility] CLIA [id number] [address] [place], [place] [address] [place] WBC (Bld) [#/Vol] 4.61 10*3/uL Normal 3.70-11.00 [facility] Comment on above: Order Comment: Speci men Type: BLOOD SPECIMEN [facility] Address: [place] [address] Performed By: #### 2 4323-8, 49029-8, 2777-1 #### [facility] CLIA [id number] [address] [address] [facility] 08-17-2022 CNDS HNO ID: [id number] Author: Ramiro Zamarripa MD Service: ? Author Type: Physician Type: Discharge Summary Filed: 08/24/2022 10:00 PM Note Text: DISCHARGE SUMMARY PATIENT NAME: Luiza May Code Status: Not on file Highest Readmission Risk Score: 6 The 30 day readmissions risk score is derived from an internally validated risk model which evaluates patient level characteristics, utilization history, medication orders and lab results up until the day of discharge. Patients with a score of 40 or above are considered highest risk for readmission. Specific patient level drivers will be listed at the bottom of the summary. Additional Provider to Provider Information: Patient was admitted with acute respiratory failure patient clinically improved and was weaned off ventilator and then her BiPAP support also was withdrawn her trach was removed she is quite stable on 2 L nasal cannula she has underlying COPD but remains clinically stable Treatment Team: Attending Provider: Ramiro Zamarripa MD Transitions of Care Critical Issues: Doing well clinically close to her baseline LABS AND PROCEDURES PENDING AT DISCHARGE: No pending results. FOLLOW-UP APPOINTMENTS ALREADY SCHEDULED WITH A [facility] PROVIDER: Future Appointments Date Time Provider Department Center 09/02/2022 1:00 PM Maryam Franco MD [facility] ALLERGIES Allergen Reactions Entex [Phenylephrin* Intolerance Tetanus Vaccines An* Swelling DISCHARGE MEDICATION: Discharge Medication List as of 08/17/2022 4:48 PM CONTINUE these medications which have NOT CHANGED ARIPiprazole (ABILIFY) 2 mg tablet Take 1 tablet by mouth once daily. Normal, Disp-30 tablet, R-3, Long-term escitalopram oxalate (LEXAPRO) 20 mg tablet Take 1 tablet by mouth once daily. Normal, Disp-90 tablet, R-3, Long-term busPIRone (BUSPAR) 5 mg tablet Take 1 tablet by mouth twice daily. Normal, Disp-60 tablet, R-1 zolpidem (AMBIEN) 10 mg Take 1 tablet by mouth at bedtime as needed (insomnia) for up to 90 days., Starting Wed05/15/2022 Normal, Disp-30 tablet, R-2, Long-term Dx: 1. Insomnia, unspecified type DULoxetine (CYMBALTA) 60 mg capsule Take 1 capsule by mouth once daily. Normal, Disp-90 capsule, R-1, Long-term atorvastatin (LIPITOR) 40 mg tablet Take 1 tablet by mouth daily at bedtime. Normal, Disp-90 tablet, R-3, Long-term Cholecalciferol, Vitamin D3, 25 mcg (1,000 unit) cap Take 1 capsule by mouth once daily. Normal, Disp-30 capsule, R-11, Long-term folic acid 1 mg tablet Take 1 tablet by mouth once daily. Normal, Disp-90 tablet, R-3 hydrOXYzine pamoate (VISTARIL) 25 mg capsule Take 1 capsule by mouth three times daily as needed. Normal, Disp-90 capsule, R-3 losartan (COZAAR) 25 mg tablet Take 1 tablet by mouth once daily. Normal, Disp-90 tablet, R-3, Long-term ASPIR-LOW 81 mg EC tablet Take 1 tablet by mouth once daily. Normal, Disp-30 tablet, R-2, KHOA, Long-term Med-sync patient. If too soon, we will put new RX on hold for next cycle. spironolactone (ALDACTONE) 25 mg tablet TAKE 1 TABLET EVERY DAY Normal, Disp-30 tablet, R-2, Long-term Med-sync patient. If too soon, we will put new RX on hold for next cycle. INCRUSE ELLIPTA 62.5 mcg/actuation inhaler Inhale 1 Puff as instructed twice daily. Normal, Disp-1 Each, R-3, KHOA !! albuterol HFA (PROVENTIL HFA, VENTOLIN HFA) 90 mcg/actuation inhaler EVERY 6 HOURS NEEDED Historical Med !! albuterol HFA (PROAIR HFA) 90 mcg/actuation inhaler Inhale 2 Puffs as instructed every 6 hours as needed. Normal, Disp-1 Inhaler, R-5 !! - Potential duplicate medications found. Please discuss with provider. Discharge Physical Exam: VITAL SIGNS: LMP 02/11/2006 GENERAL: Alert, no distress, cooperative The patient's risk for 30-day readmission is determined using the following contributing factors: Pt variables contributing to increased readmission risk: 20 Most Recent BUN Result 9 First Resulted Calcium During Admission 1 Insurance - Self Pay 1 Discharge Disposition - Home 1 History of COPD Plan of care discussed with Provider, RN, Patient I have performed the substantive portion including [id number] and relevant services for a total of >30 minutes. SIGNATURE: Ramiro Zamarripa MD DATE: August 24, 2022 TIME: 9:57 PM Normal [facility] Comprehensive metabolic 2000 panelon 08-17-2022 Albumin [Mass/Vol] 3.2 g/dL Normal 3.2-5.0 [facility] Comment on above: Order Comment: Kaela burns Type: BLOOD SPECIMEN [facility] Address: [address] [place], [place] [address] Performed By: #### 2 4323-8, 27796-6, 277- #### [facility] CLIA [id number] [address] [place] [address] [place] ALP [Catalytic activity/Vol] 86 U/L Normal 45-117 [facility] Comment on above: Order Comment: Kaela burns Type: BLOOD SPECIMEN [facility] Address: [address] [place], [place] [address] Performed By: #### 2 4323-8, , 2776-07 #### [facility] CLIA [id number] [address] [place] [address] [place] ALT [Catalytic activity/Vol] 24 U/L Normal 13-61 [facility] Comment on above: Order Comment: Kaela burns Type: BLOOD SPECIMEN [facility]: [facility] Address: [address] [place], [place] [address] Result Comment: Resu lts may be falsely depressed after the administration of Sulfasalazine and/or Sulfapyridine. Performed By: #### 2 4323-8, 21915-6, 277- #### [facility] CLIA [id number] [address] [address] [place] Anion gap [Moles/Vol] 12 mmol/L Normal 5-16 [facility] Comment on above: Order Comment: Speci men Type: BLOOD SPECIMEN [facility] Address: [address] [place] [address] Performed By: #### 2 4323-8, , 2776-07 #### [facility] CLIA [id number] [address] [place] [address] [place] AST [Catalytic activity/Vol] 31 U/L Normal 8-34 [facility] Comment on above: Order Comment: Speci men Type: BLOOD SPECIMEN Ordering Facility: [facility] Address: [address] [place] [address] Result Comment: Resu lts may be falsely depressed after the administration of Sulfasalazine and/or Sulfapyridine. Performed By: #### 2 4323-8, , 2776-07 #### [facility] CLIA [id number] [address] [place] [address] [place] Bilirubin [Mass/Vol] 0.2 mg/dL Normal 0.2-1.0 [facility] Comment on above: Order Comment: Speci men Type: BLOOD SPECIMEN [facility]: [facility] Address: [address] [place] [address] Performed By: #### 2 4323-8, , 2776-07 #### [facility] CLIA [id number] [address] [place] [address] [place] Calcium [Mass/Vol] 9.0 mg/dL Normal 8.5-10.5 [facility] Comment on above: Order Comment: Speci men Type: BLOOD SPECIMEN [facility]: [facility] Address: [address] [place] [address] Performed By: #### 2 4323-8, , 2776-07 #### [facility] CLIA [id number] [address] [place], [place] [address] [place] Chloride [Moles/Vol] 98 mmol/L Normal 98-107 [facility] Comment on above: Order Comment: Speci men Type: BLOOD SPECIMEN Ordering Facility: [facility] Address: [address] [place] [address] Performed By: #### 2 4323-8, 35134-1, 2776-07 #### [facility] CLIA [id number] [address] [place] [address] [place] CO2 [Moles/Vol] 28 mmol/L Normal 21-32 [facility] Comment on above: Order Comment: Speci men Type: BLOOD SPECIMEN Ordering Facility: [facility] Address: [address] [place] [address] Performed By: #### 2 4323-8, , 2776-07 #### [facility] CLIA [id number] [address] [place] [address] [place] Creatinine [Mass/Vol] 0.65 mg/dL Normal 0.51-0.95 [facility] Comment on above: Order Comment: Speci men Type: BLOOD SPECIMEN Ordering Facility: [facility] Address: [address] [place] [address] Result Comment: Cori ents receiving either N-Acetylcysteine (NAC) or Metamizole prior to venipuncture, may have falsely depressed results. Performed By: #### 2 4323-8, , 2776-07 #### [facility] CLIA [id number] [address] [place] [address] [place] ESTIMATED GLOMERULAR FILTRATION RATE 97 mL/min/1.73m??? Normal >=60 [facility] Comment on above: Order Comment: Speci men Type: BLOOD SPECIMEN Ordering Facility: [facility] Address: [address] [place] [address] Result Comment: Sierra mated Glomerular Filtration Rate (eGFR) is calculated using the 2020 CKD-EPI creatinine equation. This equation utilizes serum creatinine, sex, and age as parameters. The creatinine assay has traceable calibration to isotope dilution-mass spectrometry. Refer to KDIGO guidelines for clinical interpretation. In patients with unstable renal function, e.g. those with acute kidney injury, the eGFR may not accurately reflect actual GFR. Performed By: #### 2 4323-8, , 2776-07 #### [facility] CLIA [id number] [address] [place], [place] [address] [place] Glucose [Mass/Vol] 86 mg/dL Normal 70-100 [facility] Comment on above: Order Comment: Kaela burns Type: BLOOD SPECIMEN Ordering Facility: [facility] Address: [address] [place], [place] [address] Result Comment: The [place] Diabetes [employer] (ADA) provides guidance for cutoff values for fasting glucose and random glucose. The ADA defines fasting as no caloric intake for at least 8 hours. Fasting plasma glucose results between 100 to 125 [...] Standards of Medical Care in Diabetes 2016, [place] [employer]. Diabetes Care. 2016.39(Suppl 1). Results may be falsely elevated after the administration of Sulfapyridine. Results may be falsely depressed after the administration of Sulfasalazine. Performed By: #### 2 4323-8, , 2776-07 #### [facility] CLIA [id number] [address] [place], [place] [address] [place] Potassium [Moles/Vol] 4.8 mmol/L Normal 3.5-5.1 [facility] Comment on above: Order Comment: Kaela burns Type: BLOOD SPECIMEN Ordering Facility: [facility] Address: [address] [place], [place] [address] Performed By: #### 2 4323-8, , 2776-07 #### [facility] CLIA [id number] [address] [place], [place] [address] [place] Protein [Mass/Vol] 7.0 g/dL Normal 6.0-8.5 [facility] Comment on above: Order Comment: Speci men Type: BLOOD SPECIMEN Ordering Facility: [facility] Address: [address] [place] [address] Performed By: #### 2 4323-8, , 2776-07 #### [facility] CLIA [id number] [address] [place], [place] [address] [place] Sodium [Moles/Vol] 138 mmol/L Normal 136-145 [facility] Comment on above: Order Comment: Speci men Type: BLOOD SPECIMEN Ordering Facility: [facility] Address: [address] [place] [address] Performed By: #### 2 4323-8, , 2776-07 #### [facility] CLIA [id number] [address] [place] [address] [place] Urea nitrogen [Mass/Vol] 20 mg/dL Normal 7-26 [facility] Comment on above: Order Comment: Speci men Type: BLOOD SPECIMEN Ordering Facility: [facility] Address: [address] [place] [address] Performed By: #### 2 4323-8, , 2776-07 #### [facility] CLIA [id number] [address] [place], [place] [address] [place] Magnesium SerPl-mCncon 08-17 Magnesium [Mass/Vol] 1.6 mg/dL Normal 1.6-2.6 [facility] Comment on above: Order Comment: Speci men Type: BLOOD SPECIMEN Ordering Facility: [facility] Address: [address] [place] [address] Performed By: #### 2 4323-8, , 2776-07 #### [facility] CLIA [id number] [address] [place], [place] [address] [place] Phosphate SerPl-mCncon 08-17 Phosphate [Mass/Vol] 4.0 mg/dL Normal 2.5-4.9 [facility] Comment on above: Order Comment: Speci men Type: BLOOD SPECIMEN Ordering Facility: [facility] Address: [address] [place] [address] Result Comment: Elev ated m-protein (paraprotein) levels in the serum may be exhibited in patients with monoclonal gammopathies, causing falsely elevated inorganic phosphorus results. Performed By: #### 2 4323-8, , 2776-07 #### [facility] CLIA [id number] [address] [place], [place] [address] [place] Basic metabolic 2000 panelon 08-13-2022 Anion gap [Moles/Vol] 4 mmol/L Low 5-16 [facility] Comment on above: Order Comment: Speci men Type: BLOOD SPECIMEN Ordering Facility: [facility] Address: [address] [place] [address] Performed By: #### 2 4323-8, , 2776-07 #### [facility] CLIA [id number] [address] [place], [place] [address] [place] Calcium [Mass/Vol] 9.4 mg/dL Normal 8.5-10.5 [facility] Comment on above: Order Comment: Speci men Type: BLOOD SPECIMEN Ordering Facility: [facility] Address: [address] [place] [address] Performed By: #### 2 4323-8, , 2776-07 #### [facility] CLIA [id number] [address] [place], [place] [address] [place] Chloride [Moles/Vol] 103 mmol/L Normal 98-107 [facility] Comment on above: Order Comment: Speci men Type: BLOOD SPECIMEN Ordering Facility: [facility] Address: [address] [place] [address] Performed By: #### 2 4323-8, , 2776-07 #### [facility] CLIA [id number] [address] [place], [place] [address] [place] CO2 [Moles/Vol] 36 mmol/L High 21-32 [facility] Comment on above: Order Comment: Kaela burns Type: BLOOD SPECIMEN Ordering Facility: [facility] Address: [address] [place] [address] Performed By: #### 2 4323-8, , 2776-07 #### [facility] CLIA [id number] [address] [place] [address] [place] Creatinine [Mass/Vol] 0.46 mg/dL Low 0.51-0.95 [facility] Comment on above: Order Comment: Kaela burns Type: BLOOD SPECIMEN Ordering Facility: [facility] Address: [address] [place] [address] Result Comment: Cori ents receiving either N-Acetylcysteine (NAC) or Metamizole prior to venipuncture, may have falsely depressed results. Performed By: #### 2 4323-8, , 2776-07 #### [facility] CLIA [id number] [address] [place] [address] [place] ESTIMATED GLOMERULAR FILTRATION RATE 105 mL/min/1.73m??? Normal >=60 [facility] Comment on above: Order Comment: Kaela burns Type: BLOOD SPECIMEN Ordering Facility: [facility] Address: [address] [place] [address] Result Comment: Sierra mated Glomerular Filtration Rate (eGFR) is calculated using the 2020 CKD-EPI creatinine equation. This equation utilizes serum creatinine, sex, and age as parameters. The creatinine assay has traceable calibration to isotope dilution-mass spectrometry. Refer to KDIGO guidelines for clinical interpretation. In patients with unstable renal function, e.g. those with acute kidney injury, the eGFR may not accurately reflect actual GFR. Performed By: #### 2 4323-8, , 2776-07 #### [facility] CLIA [id number] [address] [place], [place] [address] [place] Glucose [Mass/Vol] 107 mg/dL High 70-100 [facility] Comment on above: Order Comment: Kaela burns Type: BLOOD SPECIMEN Ordering Facility: [facility] Address: [address] [place], [place] [address] Result Comment: The [place] Diabetes [employer] (ADA) provides guidance for cutoff values for fasting glucose and random glucose. The ADA defines fasting as no caloric intake for at least 8 hours. Fasting plasma glucose results between 100 to 125 [...] Standards of Medical Care in Diabetes 2016, [place] [employer]. Diabetes Care. 2016.39(Suppl 1). Results may be falsely elevated after the administration of Sulfapyridine. Results may be falsely depressed after the administration of Sulfasalazine. Performed By: #### 2 4323-8, , 2776-07 #### [facility] CLIA [id number] [address] [place] [address] [place] Potassium [Moles/Vol] 4.2 mmol/L Normal 3.5-5.1 [facility] Comment on above: Order Comment: Kaela burns Type: BLOOD SPECIMEN Ordering Facility: [facility] Address: [address] [place] [address] Performed By: #### 2 4323-8, , 2776-07 #### [facility] CLIA [id number] [address] [place] [address] [place] Sodium [Moles/Vol] 143 mmol/L Normal 136-145 [facility] Comment on above: Order Comment: Yusufi grant Type: BLOOD SPECIMEN Ordering Facility: [facility] Address: [address] [place] [address] Performed By: #### 2 4323-8, , 2776-07 #### [facility] CLIA [id number] [address] [place] [address] [place] Urea nitrogen [Mass/Vol] 17 mg/dL Normal 7-26 [facility] Comment on above: Order Comment: Speci men Type: BLOOD SPECIMEN Ordering Facility: [facility] Address: [address] [place] [address] Performed By: #### 2 4323-8, , 2776-07 #### [facility] CLIA [id number] [address] [place] [address] [place] CBC panel Auto (Bld)on 08-13 Erythrocyte distribution width (RBC) [Ratio] 15.3 % High 11.5-15.0 [facility] Comment on above: Order Comment: Speci men Type: BLOOD SPECIMEN Ordering Facility: [facility] Address: [address] [place] [address] Performed By: #### 2 4323-8, , 2776-07 #### [facility] CLIA [id number] [address] [place] [address] [place] Hematocrit (Bld) [Volume fraction] 34.8 % Low 36.0-46.0 [facility] Comment on above: Order Comment: Speci men Type: BLOOD SPECIMEN Ordering Facility: [facility] Address: [address] [place] [address] Performed By: #### 2 4323-8, , 2776-07 #### [facility] CLIA [id number] [address] [place] [address] [place] Hemoglobin (Bld) [Mass/Vol] 10.9 g/dL Low 11.5-15.5 [facility] Comment on above: Order Comment: Speci men Type: BLOOD SPECIMEN Ordering Facility: [facility] Address: [address] [place] [address] Performed By: #### 2 4323-8, , 2776-07 #### [facility] CLIA [id number] [address] [place], [place] [address] [place] MCH (RBC) [Entitic mass] 29.1 pg Normal 26.0-34.0 [facility] Comment on above: Order Comment: Speci men Type: BLOOD SPECIMEN Ordering Facility: [facility] Address: [address] [id number] Performed By: #### 2 4323-8, , 2776-07 #### [facility] CLIA [id number] [address] [place], [place] [address] [place] MCHC (RBC) [Mass/Vol] 31.3 g/dL Normal 30.5-36.0 [facility] Comment on above: Order Comment: Speci men Type: BLOOD SPECIMEN Ordering Facility: [facility] Address: [address] [id number] Performed By: #### 2 4323-8, , 2776-07 #### [facility] CLIA [id number] [address] [place] [address] [place] MCV (RBC) [Entitic vol] 92.8 fL Normal 80.0-100.0 [facility] Comment on above: Order Comment: Speci men Type: BLOOD SPECIMEN Ordering Facility: [facility] Address: [address] [place], [place] [address] Performed By: #### 2 4323-8, , 2776-07 #### [facility] CLIA [id number] [address] [place] [address] [place] Nucleated RBC (Bld) [#/Vol] 10*3/uL Normal <0.01 [facility] Comment on above: Order Comment: Speci men Type: BLOOD SPECIMEN Ordering Facility: [facility] Address: [address] [id number] Performed By: #### 2 4323-8, , 2776-07 #### [facility] CLIA [id number] [address] [place], [place] [address] [place] Platelet mean volume (Bld) [Entitic vol] 10.5 fL Normal 9.0-12.7 [facility] Comment on above: Order Comment: Speci men Type: BLOOD SPECIMEN Ordering Facility: [facility] Address: [address] [place], [place] [address] Performed By: #### 2 4323-8, 96578-4, 2776- #### [facility] CLIA [id number] [address] [place] [address] [place] Platelets (Bld) [#/Vol] 199 10*3/uL Normal 150-400 [facility] Comment on above: Order Comment: Speci men Type: BLOOD SPECIMEN Ordering Facility: [facility] Address: [address] [place], [place] [phone] Performed By: #### 2 4323-8, 19743-6, 2776- #### [facility] CLIA [id number] [address] [place], [place] [address] [place] RBC (Bld) [#/Vol] 3.75 10*6/uL Low 3.90-5.20 [facility] Comment on above: Order Comment: Speci men Type: BLOOD SPECIMEN Ordering Facility: [facility] Address: [address] [place] [address] Performed By: #### 2 4323-8, , 2776-07 #### [facility] CLIA [id number] [address] [place], [place] [address] [place] WBC (Bld) [#/Vol] 7.82 10*3/uL Normal 3.70-11.00 [facility] Comment on above: Order Comment: Speci men Type: BLOOD SPECIMEN Ordering Facility: [facility] Address: [place] [address] Performed By: #### 2 4323-8, 46223-4, 2776-07 #### [facility] CLIA [id number] [address] [place], [place] [address] [facility] [place] Magnesium SerPl-mCncon 08-11 Magnesium [Mass/Vol] 2.0 mg/dL Normal 1.6-2.6 [facility] Comment on above: Order Comment: Speci men Type: BLOOD SPECIMEN Ordering Facility: [facility] Address: [address] [place] [address] Performed By: #### 2 4323-8, 51548-5, 2777-1 #### [facility] CLIA [id number] [address] [place] [address] [place] CBC W Auto Differential pane l (Bld)on 08-10-2022 Basophils (Bld) [#/Vol] 0.06 10*3/uL Normal <0.11 [facility] Comment on above: Order Comment: Speci men Type: BLOOD SPECIMEN Ordering Facility: [facility] Address: [address] [address] Performed By: #### 5 7021-8 #### [facility] CLIA [id number] [address] [place] [address] [place] Basophils/100 WBC (Bld) 1.0 % Normal [facility] Comment on above: Order Comment: Speci men Type: BLOOD SPECIMEN Ordering Facility: [facility] Address: [address] [place] [address] Performed By: #### 5 7021-8 #### [facility] CLIA [id number] [address] [place] [address] [place] Differential cell count method Nom (Bld) Auto Normal [facility] Comment on above: Order Comment: Speci men Type: BLOOD SPECIMEN Ordering Facility: [facility] Address: [address] [place] [address] Performed By: #### 5 7021-8 #### [facility] CLIA [id number] [address] [place] [address] [place] Eosinophils (Bld) [#/Vol] 0.16 10*3/uL Normal <0.46 [facility] Comment on above: Order Comment: Speci men Type: BLOOD SPECIMEN Ordering Facility: [facility] Address: [address] [address] Performed By: #### 5 7021-8 #### [facility] CLIA [id number] [address] [place] [address] [place] Eosinophils/100 WBC (Bld) 2.6 % Normal [facility] Comment on above: Order Comment: Speci men Type: BLOOD SPECIMEN Ordering Facility: [facility] Address: [address] [address] Performed By: #### 5 7021-8 #### [facility] CLIA [id number] [address] [place] [address] [place] Erythrocyte distribution width (RBC) [Ratio] 14.6 % Normal 11.5-15.0 [facility] Comment on above: Order Comment: Speci men Type: BLOOD SPECIMEN Ordering Facility: [facility] Address: [address] Performed By: #### 5 7021-8 #### [facility] CLIA [id number] [address] [place] [address] [place] Hematocrit (Bld) [Volume fraction] 34.1 % Low 36.0-46.0 [facility] Comment on above: Order Comment: Speci men Type: BLOOD SPECIMEN Ordering Facility: [facility] Address: [address] Performed By: #### 5 7021-8 #### [facility] CLIA [id number] [address] [place] [address] [place] Hemoglobin (Bld) [Mass/Vol] 10.2 g/dL Low 11.5-15.5 [facility] Comment on above: Order Comment: Speci men Type: BLOOD SPECIMEN Ordering Facility: [facility] Address: [address] Performed By: #### 5 7021-8 #### [facility] CLIA [id number] [address] [place] [address] [place] Immature granulocytes (Bld) [#/Vol] 0.03 10*3/uL Normal <0.10 [facility] Comment on above: Order Comment: Speci men Type: BLOOD SPECIMEN Ordering Facility: [facility] Address: [address] Performed By: #### 5 7021-8 #### [facility] CLIA [id number] [address] [place] [address] [place] Immature granulocytes/100 WBC (Bld) 0.5 % Normal [facility] Comment on above: Order Comment: Speci men Type: BLOOD SPECIMEN Ordering Facility: [facility] Address: [address] [place] [address] Performed By: #### 5 7021-8 #### [facility] CLIA [id number] [address] [place] [address] [place] Lymphocytes (Bld) [#/Vol] 1.56 10*3/uL Normal 1.00-4.00 [facility] Comment on above: Order Comment: Speci men Type: BLOOD SPECIMEN Ordering Facility: [facility] Address: [address] [place] [address] Performed By: #### 5 7021-8 #### [facility] CLIA [id number] [address] [place] [address] [place] Lymphocytes/100 WBC (Bld) 25.3 % Normal [facility] Comment on above: Order Comment: Speci men Type: BLOOD SPECIMEN Ordering Facility: [facility] Address: [address] [place] [address] Performed By: #### 5 7021-8 #### [facility] CLIA [id number] [address] [place] [address] [place] MCH (RBC) [Entitic mass] 28.7 pg Normal 26.0-34.0 [facility] Comment on above: Order Comment: Speci men Type: BLOOD SPECIMEN Ordering Facility: [facility] Address: [address] [place] [address] Performed By: #### 5 7021-8 #### [facility] CLIA [id number] [address] [place] [address] [place] MCHC (RBC) [Mass/Vol] 29.9 g/dL Low 30.5-36.0 [facility] Comment on above: Order Comment: Speci men Type: BLOOD SPECIMEN Ordering Facility: [facility] Address: [address] [address] Performed By: #### 5 7021-8 #### [facility] CLIA [id number] [address] [place] [address] [place] MCV (RBC) [Entitic vol] 96.1 fL Normal 80.0-100.0 [facility] Comment on above: Order Comment: Speci men Type: BLOOD SPECIMEN Ordering Facility: [facility] Address: [address] [address] Performed By: #### 5 7021-8 #### [facility] CLIA [id number] [address] [place] [address] [place] Monocytes (Bld) [#/Vol] 0.54 10*3/uL Normal <0.87 [facility] Comment on above: Order Comment: Speci men Type: BLOOD SPECIMEN Ordering Facility: [facility] Address: [address] [address] Performed By: #### 5 7021-8 #### [facility] CLIA [id number] [address] [place] [address] [place] Monocytes/100 WBC (Bld) 8.8 % Normal [facility] Comment on above: Order Comment: Speci men Type: BLOOD SPECIMEN Ordering Facility: [facility] Address: [address] [address] Performed By: #### 5 7021-8 #### [facility] CLIA [id number] [address] [place] [address] [place] Neutrophils (Bld) [#/Vol] 3.82 10*3/uL Normal 1.45-7.50 [facility] Comment on above: Order Comment: Speci men Type: BLOOD SPECIMEN Ordering Facility: [facility] Address: [address] [address] Performed By: #### 5 7021-8 #### [facility] CLIA [id number] [address] [place] [address] [place] Neutrophils/100 WBC (Bld) 61.8 % Normal [facility] Comment on above: Order Comment: Speci men Type: BLOOD SPECIMEN Ordering Facility: [facility] Address: [address] Performed By: #### 5 7021-8 #### [facility] CLIA [id number] [address] [place] [address] [place] Nucleated RBC (Bld) [#/Vol] 10*3/uL Normal <0.01 [facility] Comment on above: Order Comment: Speci men Type: BLOOD SPECIMEN Ordering Facility: [facility] Address: [address] Performed By: #### 5 7021-8 #### [facility] CLIA [id number] [address] [place] [address] [place] Nucleated RBC/100 WBC (Bld) [Ratio] 0.0 /100 WBC Normal [facility] Comment on above: Order Comment: Speci men Type: BLOOD SPECIMEN Ordering Facility: [facility] Address: [address] Performed By: #### 5 7021-8 #### [facility] CLIA [id number] [address] [place] [address] [place] Platelet mean volume (Bld) [Entitic vol] 10.3 fL Normal 9.0-12.7 [facility] Comment on above: Order Comment: Speci men Type: BLOOD SPECIMEN Ordering Facility: [facility] Address: [address] Performed By: #### 5 7021-8 #### [facility] CLIA [id number] [address] [place] [address] [place] Platelets (Bld) [#/Vol] 188 10*3/uL Normal 150-400 [facility] Comment on above: Order Comment: Speci men Type: BLOOD SPECIMEN Ordering Facility: [facility] Address: [address] Performed By: #### 5 7021-8 #### [facility] CLIA [id number] [address] [place] [address] [place] RBC (Bld) [#/Vol] 3.55 10*6/uL Low 3.90-5.20 [facility] Comment on above: Order Comment: Speci men Type: BLOOD SPECIMEN Ordering Facility: [facility] Address: [address] [place] [address] Performed By: #### 5 7021-8 #### [facility] CLIA [id number] [address] [place] [address] WBC (Bld) [#/Vol] 6.17 10*3/uL Normal 3.70-11.00 [facility] Comment on above: Order Comment: Speci men Type: BLOOD SPECIMEN Ordering Facility: [facility] Address: [address] [place] [address] Performed By: #### 5 7021-8 #### [facility] CLIA [id number] [address] [place] [address] Comprehensive metabolic 2000 panelon 08-10-2022 Albumin [Mass/Vol] 2.9 g/dL Low 3.2-5.0 [facility] Comment on above: Order Comment: Speci men Type: BLOOD SPECIMEN Ordering Facility: [facility] Address: [address] [place] [address] Performed By: #### 5 7021-8 #### [facility] CLIA [id number] [address] [place] [address] [place] ALP [Catalytic activity/Vol] 96 U/L Normal 45-117 [facility] Comment on above: Order Comment: Speci men Type: BLOOD SPECIMEN Ordering Facility: [facility] Address: [address] [place] [address] Performed By: #### 5 7021-8 #### [facility] CLIA [id number] [address] [place] [address] ALT [Catalytic activity/Vol] 13 U/L Normal 13-61 [facility] Comment on above: Order Comment: Speci men Type: BLOOD SPECIMEN Ordering Facility: [facility] Address: [address] [address] Result Comment: Resu lts may be falsely depressed after the administration of Sulfasalazine and/or Sulfapyridine. Performed By: #### 5 7021-8 #### [facility] CLIA [id number] [address] [place] [address] [place] Anion gap [Moles/Vol] mmol/L Low 5-16 [facility] Comment on above: Order Comment: Speci men Type: BLOOD SPECIMEN Ordering Facility: [facility] Address: [address] [place] [address] Performed By: #### 5 7021-8 #### [facility] CLIA [id number] [address] [place] [address] [place] AST [Catalytic activity/Vol] 15 U/L Normal 8-34 [facility] Comment on above: Order Comment: Speci men Type: BLOOD SPECIMEN Ordering Facility: [facility] Address: [address] [place] [address] Result Comment: Resu lts may be falsely depressed after the administration of Sulfasalazine and/or Sulfapyridine. Performed By: #### 5 7021-8 #### [facility] CLIA [id number] [address] [place] [address] [place] Bilirubin [Mass/Vol] 0.2 mg/dL Normal 0.2-1.0 [facility] Comment on above: Order Comment: Speci men Type: BLOOD SPECIMEN Ordering Facility: [facility] Address: [address] [place] [address] Performed By: #### 5 7021-8 #### [facility] CLIA [id number] [address] [place] [address] [place] Calcium [Mass/Vol] 9.4 mg/dL Normal 8.5-10.5 [facility] Comment on above: Order Comment: Speci men Type: BLOOD SPECIMEN Ordering Facility: [facility] Address: [address] [place] [address] Performed By: #### 5 7021-8 #### [facility] CLIA [id number] [address] [place] [address] [place] Chloride [Moles/Vol] 102 mmol/L Normal 98-107 [facility] Comment on above: Order Comment: Speci men Type: BLOOD SPECIMEN Ordering Facility: [facility] Address: [address] [address] Performed By: #### 5 7021-8 #### [facility] CLIA [id number] [address] [place] [address] [place] CO2 [Moles/Vol] 43 mmol/L High 21-32 [facility] Comment on above: Order Comment: Speci men Type: BLOOD SPECIMEN Ordering Facility: [facility] Address: [address] [place] [address] Result Comment: > Ma nufacturer Limit Critical or Urgent Result(s) Called at: 06:58:11 on 08/10/2022 by p. Called to and read back by:ADRI YODER RN Performed By: #### 5 7021-8 #### [facility] [facility] CLIA [id number] [address] [place] [address] [place] Creatinine [Mass/Vol] 0.46 mg/dL Low 0.51-0.95 [facility] Comment on above: Order Comment: Speci men Type: BLOOD SPECIMEN Ordering Facility: [facility] Address: [address] [place] [address] Result Comment: Cori ents receiving either N-Acetylcysteine (NAC) or Metamizole prior to venipuncture, may have falsely depressed results. Performed By: #### 5 7021-8 #### [facility] CLIA [id number] [address] [place] [address] [place] ESTIMATED GLOMERULAR FILTRATION RATE 105 mL/min/1.73m??? Normal >=60 [facility] Comment on above: Order Comment: Speci men Type: BLOOD SPECIMEN Ordering Facility: [facility] Address: [address] [place] [address] Result Comment: Sierra mated Glomerular Filtration Rate (eGFR) is calculated using the 2020 CKD-EPI creatinine equation. This equation utilizes serum creatinine, sex, and age as parameters. The creatinine assay has traceable calibration to isotope dilution-mass spectrometry. Refer to KDIGO guidelines for clinical interpretation. In patients with unstable renal function, e.g. those with acute kidney injury, the eGFR may not accurately reflect actual GFR. Performed By: #### 5 7021-8 #### [facility] CLIA [id number] [address] [place] [address] [place] Glucose [Mass/Vol] 102 mg/dL High 70-100 [facility] Comment on above: Order Comment: Kaela burns Type: BLOOD SPECIMEN Ordering Facility: [facility] Address: [address] [place], [place] [address] Result Comment: The [place] Diabetes Association (ADA) provides guidance for cutoff values for fasting glucose and random glucose. The ADA defines fasting as no caloric intake for at least 8 hours. Fasting plasma glucose results between 100 to 125 [...] Standards of Medical Care in Diabetes 2016, [place] Diabetes Association. Diabetes Care. 2016.39(Suppl 1). Results may be falsely elevated after the administration of Sulfapyridine. Results may be falsely depressed after the administration of Sulfasalazine. Performed By: #### 5 7021-8 #### [facility] CLIA [id number] [address] [place] [address] [place] Potassium [Moles/Vol] 4.2 mmol/L Normal 3.5-5.1 [facility] Comment on above: Order Comment: Kaela burns Type: BLOOD SPECIMEN Ordering Facility: [facility] Address: [address] [place] [address] Performed By: #### 5 7021-8 #### [facility] CLIA [id number] [address] [place] [address] [place] Protein [Mass/Vol] 6.3 g/dL Normal 6.0-8.5 [facility] Comment on above: Order Comment: Speci men Type: BLOOD SPECIMEN Ordering Facility: [facility] Address: [address] [place] [address] Performed By: #### 5 7021-8 #### [facility] CLIA [id number] [address] [place] [address] [place] Sodium [Moles/Vol] 145 mmol/L Normal 136-145 [facility] Comment on above: Order Comment: Speci men Type: BLOOD SPECIMEN Ordering Facility: [facility] Address: [address] [place] [address] Performed By: #### 5 7021-8 #### [facility] CLIA [id number] [address] [place] [address] [place] Urea nitrogen [Mass/Vol] 14 mg/dL Normal 7-26 [facility] Comment on above: Order Comment: Speci men Type: BLOOD SPECIMEN Ordering Facility: [facility] Address: [address] [place] [address] Performed By: #### 5 7021-8 #### [facility] CLIA [id number] [address] [place] [address] [place] Magnesium SerPl-mCncon 08-10 Magnesium [Mass/Vol] 1.5 mg/dL Low 1.6-2.6 [facility] Comment on above: Order Comment: Speci men Type: BLOOD SPECIMEN Ordering Facility: [facility] Address: [address] [place] [address] Performed By: #### 2 4323-8, 98092-3, 2777-1 #### [facility] CLIA [id number] [address] [place] [address] [place] Phosphate SerPl-mCncon 08-10 Phosphate [Mass/Vol] 3.6 mg/dL Normal 2.5-4.9 [facility] Comment on above: Order Comment: Speci men Type: BLOOD SPECIMEN Ordering Facility: [facility] Address: [address] [place] [address] Result Comment: Elev ated m-protein (paraprotein) levels in the serum may be exhibited in patients with monoclonal gammopathies, causing falsely elevated inorganic phosphorus results. Performed By: #### 2 4323-8, 57239-7, 2777-1 #### [facility] CLIA [id number] [address] [place] [address] [place] Basic metabolic 2000 panelon 08-09-2022 Anion gap [Moles/Vol] 4 mmol/L Low 5-16 [facility] Comment on above: Order Comment: Speci men Type: BLOOD SPECIMEN Ordering Facility: [facility] Address: [address] [place] [address] Performed By: #### 5 7021-8 #### [facility] CLIA [id number] [address] [place] [address] [place] Calcium [Mass/Vol] 9.4 mg/dL Normal 8.5-10.5 [facility] Comment on above: Order Comment: Speci men Type: BLOOD SPECIMEN Ordering Facility: [facility] Address: [address] [place] [address] Performed By: #### 5 7021-8 #### [facility] CLIA [id number] [address] [place] [address] [place] Chloride [Moles/Vol] 101 mmol/L Normal 98-107 [facility] Comment on above: Order Comment: Speci men Type: BLOOD SPECIMEN Ordering Facility: [facility] Address: [address] [place] [address] Performed By: #### 5 7021-8 #### [facility] CLIA [id number] [address] [place] [address] [place] CO2 [Moles/Vol] 38 mmol/L High 21-32 [facility] Comment on above: Order Comment: Speci men Type: BLOOD SPECIMEN Ordering Facility: [facility] Address: [address] [place], [place] [address] Performed By: #### 5 7021-8 #### [facility] CLIA [id number] [address] [place] [address] [place] Creatinine [Mass/Vol] 0.43 mg/dL Low 0.51-0.95 [facility] Comment on above: Order Comment: Kaela burns Type: BLOOD SPECIMEN Ordering Facility: [facility] Address: [address] [address] Result Comment: Cori ents receiving either N-Acetylcysteine (NAC) or Metamizole prior to venipuncture, may have falsely depressed results. Performed By: #### 5 7021-8 #### [facility] CLIA [id number] [address] [place] [address] OF [facility] ESTIMATED GLOMERULAR FILTRATION RATE 107 mL/min/1.73m??? Normal >=60 [facility] Comment on above: Order Comment: Kaela burns Type: BLOOD SPECIMEN Ordering Facility: [facility] Address: [address] [place] [address] Result Comment: Sierra mated Glomerular Filtration Rate (eGFR) is calculated using the 2020 CKD-EPI creatinine equation. This equation utilizes serum creatinine, sex, and age as parameters. The creatinine assay has traceable calibration to isotope dilution-mass spectrometry. Refer to KDIGO guidelines for clinical interpretation. In patients with unstable renal function, e.g. those with acute kidney injury, the eGFR may not accurately reflect actual GFR. Performed By: #### 5 7021-8 #### [facility] CLIA [id number] [address] [place] [address] [place] Glucose [Mass/Vol] 159 mg/dL High 70-100 [facility] Comment on above: Order Comment: Kaela burns Type: BLOOD SPECIMEN Ordering Facility: [facility] Address: [address] [place] [address] Result Comment: The [place] Diabetes Association (ADA) provides guidance for cutoff values for fasting glucose and random glucose. The ADA defines fasting as no caloric intake for at least 8 hours. Fasting plasma glucose results between 100 to 125 [...] Standards of Medical Care in Diabetes 2016, [place] Diabetes Association. Diabetes Care. 2016.39(Suppl 1). Results may be falsely elevated after the administration of Sulfapyridine. Results may be falsely depressed after the administration of Sulfasalazine. Performed By: #### 5 7021-8 #### [facility] CLIA [id number] [address] [place] [address] [place] Potassium [Moles/Vol] 4.5 mmol/L Normal 3.5-5.1 [facility] Comment on above: Order Comment: Kaela burns Type: BLOOD SPECIMEN Ordering Facility: [facility] Address: [address] [place] [address] Performed By: #### 5 7021-8 #### [facility] CLIA [id number] [address] [place] [address] [place] Sodium [Moles/Vol] 143 mmol/L Normal 136-145 [facility] Comment on above: Order Comment: Kaela burns Type: BLOOD SPECIMEN Ordering Facility: [facility] Address: [address] [place] [address] Performed By: #### 5 7021-8 #### [facility] CLIA [id number] [address] [place] [address] [place] Urea nitrogen [Mass/Vol] 13 mg/dL Normal 7-26 [facility] Comment on above: Order Comment: Kaela burns Type: BLOOD SPECIMEN Ordering Facility: [facility] Address: [address] [place] [address] Performed By: #### 5 7021-8 #### [facility] CLIA [id number] [address] [place] [address] [place] Magnesium SerPl-mCncon 08-09 Magnesium [Mass/Vol] 1.6 mg/dL Normal 1.6-2.6 [facility] Comment on above: Order Comment: Speci men Type: BLOOD SPECIMEN Ordering Facility: [facility] Address: [place] [address] Performed By: #### 5 7021-8 #### [facility] CLIA [id number] [address] [place], [place] [address] [facility] ALLIED HEALTHon 08-06-2022 ALLIED HEALTH HNO ID: [id number] Author: RT Tish(R) Service: Radiology Author Type: Technologist Type: Allied Health Filed: 08/06/2022 1:43 PM Note Text: Summary: GI/ 85[facility] Radiology Service Progress Note PATIENT NAME: Luiza May DATE OF SERVICE: August 06, 2022 TIME: 1:42 PM PATIENT IDENTITY VERIFICATION COMPLETED USING TWO (2) IDENTIFIERS: Name and Date of confirmed by identification band. FALL SCREENING: Has the patient had 2 falls in the last year or 1 fall with injury or currently using an Ambulatory Assistive Device (Walker, Cane, Wheelchair, Crutches, etc.)? Inpatient: Screened on floor PATIENT GENDER DATA: Female. status: : No status: NO. PATIENT RELEVANT IMPLANT DATA REVIEWED: Not Applicable RADIOLOGY DEPARTMENT: General X-ray: Exam(s) Completed: GI/ Procedure(s): Modified barium swallow with barium contrast PERIPHERAL IV DATA: Not applicable SIGNED BY: RT Tish(R) August 06, 2022 1:42 PM Normal [facility] Basic metabolic 2000 panelon 08-06-2022 Anion gap [Moles/Vol] mmol/L Low 5-16 [facility] Comment on above: Order Comment: Speci men Type: BLOOD SPECIMEN Ordering Facility: [facility] Address: [address] [address] Performed By: #### 2 4321-2 #### [facility] CLIA [id number] [address] [place] [address] [place] Calcium [Mass/Vol] 9.6 mg/dL Normal 8.5-10.5 [facility] Comment on above: Order Comment: Speci men Type: BLOOD SPECIMEN Ordering Facility: [facility] Address: [address] [place] [address] Performed By: #### 2 4321-2 #### [facility] CLIA [id number] [address] [place] [address] [place] Chloride [Moles/Vol] 99 mmol/L Normal 98-107 [facility] Comment on above: Order Comment: Speci men Type: BLOOD SPECIMEN Ordering Facility: [facility] Address: [address] [place] [address] Performed By: #### 2 4321-2 #### [facility] CLIA [id number] [address] [place] [address] [place] CO2 [Moles/Vol] 40 mmol/L High 21-32 [facility] Comment on above: Order Comment: Speci men Type: BLOOD SPECIMEN Ordering Facility: [facility] Address: [address] [address] Performed By: #### 2 4321-2 #### [facility] CLIA [id number] [address] [place] [address] [place] Creatinine [Mass/Vol] 0.44 mg/dL Low 0.51-0.95 [facility] Comment on above: Order Comment: Speci men Type: BLOOD SPECIMEN Ordering Facility: [facility] Address: [address] [place] [address] Result Comment: Cori ents receiving either N-Acetylcysteine (NAC) or Metamizole prior to venipuncture, may have falsely depressed results. Performed By: #### 2 4321-2 #### [facility] CLIA [id number] [address] [place] [address] [place] ESTIMATED GLOMERULAR FILTRATION RATE 106 mL/min/1.73m??? Normal >=60 [facility] Comment on above: Order Comment: Kaela burns Type: BLOOD SPECIMEN Ordering Facility: [facility] Address: [address] [place] [address] Result Comment: Sierra mated Glomerular Filtration Rate (eGFR) is calculated using the 2020 CKD-EPI creatinine equation. This equation utilizes serum creatinine, sex, and age as parameters. The creatinine assay has traceable calibration to isotope dilution-mass spectrometry. Refer to KDIGO guidelines for clinical interpretation. In patients with unstable renal function, e.g. those with acute kidney injury, the eGFR may not accurately reflect actual GFR. Performed By: #### 2 4321-2 #### [facility] CLIA [id number] [address] [place] [address] [place] Glucose [Mass/Vol] 112 mg/dL High 70-100 [facility] Comment on above: Order Comment: Kaela burns Type: BLOOD SPECIMEN Ordering Facility: [facility] Address: [address] [place] [address] Result Comment: The [place] Diabetes Association (ADA) provides guidance for cutoff values for fasting glucose and random glucose. The ADA defines fasting as no caloric intake for at least 8 hours. Fasting plasma glucose results between 100 to 125 [...] Standards of Medical Care in Diabetes 2016, [place] Diabetes Association. Diabetes Care. 2016.39(Suppl 1). Results may be falsely elevated after the administration of Sulfapyridine. Results may be falsely depressed after the administration of Sulfasalazine. Performed By: #### 2 4321-2 #### [facility] CLIA [id number] [address] [place] [address] [place] Potassium [Moles/Vol] 4.1 mmol/L Normal 3.5-5.1 [facility] Comment on above: Order Comment: Speci men Type: BLOOD SPECIMEN Ordering Facility: [facility] Address: [address] [place] [address] Performed By: #### 2 4321-2 #### [facility] CLIA [id number] [address] [place] [address] [place] Sodium [Moles/Vol] 141 mmol/L Normal 136-145 [facility] Comment on above: Order Comment: Speci men Type: BLOOD SPECIMEN Ordering Facility: [facility] Address: [address] [place] [address] Performed By: #### 2 4321-2 #### [facility] CLIA [id number] [address] [place] [address] [place] Urea nitrogen [Mass/Vol] 13 mg/dL Normal 7-26 [facility] Comment on above: Order Comment: Speci men Type: BLOOD SPECIMEN Ordering Facility: [facility] Address: [address] [place] [address] Performed By: #### 2 4321-2 #### [facility] CLIA [id number] [address] [place] [address] [place] CBC panel Auto (Bld)on 08-06 Erythrocyte distribution width (RBC) [Ratio] 15.3 % High 11.5-15.0 [facility] Comment on above: Order Comment: Speci men Type: BLOOD SPECIMEN Ordering Facility: [facility] Address: [address] [place] [address] Performed By: #### 5 8410-2 #### [facility] CLIA [id number] [address] [place] [address] STATES OF [facility] Hematocrit (Bld) [Volume fraction] 33.7 % Low 36.0-46.0 [facility] Comment on above: Order Comment: Speci men Type: BLOOD SPECIMEN Ordering Facility: [facility] Address: [address] [address] Performed By: #### 5 8410-2 #### [facility] CLIA [id number] [address] [place] [address] [place] Hemoglobin (Bld) [Mass/Vol] 10.4 g/dL Low 11.5-15.5 [facility]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 on the CKD-EPI 2020 equation using creatinine, age, and sex. Performed By: #### I PB, CHM7, MGO #### [facility] (DEFAULT) [address] [place] [address] 09516 Glucose [Mass/Vol] 90 mg/dL Normal 70-99 [facility] Comment on above: Performed By: #### I PB, CHM7, MGO #### [facility] (DEFAULT) [address] [place] [address] 97217 Osmolality [Osmolality] 296 mosm/kg Normal 278-305 [facility] Comment on above: Performed By: #### I PB, CHM7, MGO #### [facility] (DEFAULT) [address] [place] [address] 31003 Potassium [Moles/Vol] 4.2 mmol/L Normal 3.5-5.0 [facility] Comment on above: Performed By: #### I PB, CHM7, MGO #### [facility] (DEFAULT) [address] [place] [address] 89263 Sodium [Moles/Vol] 143 mmol/L Normal 135-145 [facility] Comment on above: Performed By: #### I PB, CHM7, MGO #### [facility] (DEFAULT) [address] [place] [address] 08152 Urea nitrogen [Mass/Vol] 8 mg/dL Normal 7-25 [facility] Comment on above: Performed By: #### I PB, CHM7, MGO #### [facility] (DEFAULT) [address] [place] [address] 43251 Urea nitrogen/Creatinine [Mass ratio] 14 mg/mg Normal [facility] Comment on above: Performed By: #### I PB, CHM7, MGO #### [facility] (DEFAULT) [address] [place] [address] 04918 Anion gap [Moles/Vol] 11 mmol/L 7 - 17 mmol/L [facility] Chloride [Moles/Vol] 102 mmol/L 98 - 10 8 mmol/L [facility] CO2 [Moles/Vol] 34 mmol/L High 21 - 31 mmol/L [facility] Creatinine [Mass/Vol] 0.58 mg/dL 0.50 - 1.20 mg/dL [facility] GFR/1.73 sq M.predicted CKD-EPI (S/P/Bld) [Vol rate/Area] >90 >=60 mL/min/1.73m 2 [facility] Glucose [Mass/Vol] 90 mg/dL 70 - 99 mg/dL [facility] Interpretation and review of laboratory results Abnormal [facility] Osmolality Calc [Osmolality] 296 [facility] Potassium [Moles/Vol] 4.2 mmol/L 3.5 - 5.0 mmol/L [facility] Sodium [Moles/Vol] 143 mmol/L 135 - 145 mmol/L [facility] Urea nitrogen [Mass/Vol] 8 mg/dL 7 - 25 mg/dL [facility] Urea nitrogen/Creatinine [Mass ratio] 14 mg/mg [facility] EXTRA MICROon 01-26-2022 [facility] IONIZED CALCIUM, WHOLE BLOOD on 01-26-2022 ICA 4.61 mg/dL Normal 4.60-5.30 [facility] Comment on above: Performed By: #### I [id number], MGO #### [facility] (DEFAULT) [address] [place] [address] 24134 IONIZED CALCIUM, WHOLE BLOOD Ordered By: Eugene Echols on 01-26-2022 Calcium.ionized (Bld) [Moles/Vol] 4.61 mg/dL 4.60 - 5.30 mg/dL [facility] Interpretation and review of laboratory results Normal [facility] MAGNESIUMon 01-26-2022 Magnesium [Mass/Vol] 1.7 mg/dL Normal 1.6-2.6 [facility] Comment on above: Performed By: #### I HARJEET MONTESINOSM7, MGO #### [facility] (DEFAULT) [address] [place] [address] 60054 Magnesium [Mass/Vol] 1.7 mg/dL 1.6 - 2 .6 mg/dL [facility] No Panel Informationon 01-26 Interpretation and review of laboratory results Normal [facility] PHOSPHATE, INORGANICon 01-26 Phosphorous 4.6 mg/dL Normal 2.2-4.6 [facility] Comment on above: Performed By: #### I PB, CHM7, MGO #### [facility] (DEFAULT) [address] [place] [address] 57710 Phosphate [Mass/Vol] 4.6 mg/dL 2.2 - 4 .6 mg/dL [facility] CBC,PLATELETSon 01-25-2022 Hematocrit (Bld) [Volume fraction] 25.4 % Low 34.9-44.3 [facility] Comment on above: Performed By: #### X M #### [facility] (DEFAULT) [address] [address] Hemoglobin (Bld) [Mass/Vol] 7.7 g/dL Low 11.4-15.2 [facility] Comment on above: Performed By: #### X M #### [facility] (DEFAULT) [address] [address] MCV (RBC) [Entitic vol] 89.1 fL Normal 79.6-97.7 [facility] Comment on above: Performed By: #### X M #### [facility] (DEFAULT) [address] [address] Mean Cell Hgb 27.0 pg Normal 25.9-33.9 [facility] Comment on above: Performed By: #### X M #### [facility] (DEFAULT) [address] [address] Mean Cell Hgb Conc 30.3 g/dL Low 31.4-35.9 [facility] Comment on above: Performed By: #### X M #### [facility] (DEFAULT) [address] [address] Platelet mean volume (Bld) [Entitic vol] 10.0 fL Normal 8.5-12.2 [facility] Comment on above: Performed By: #### X M #### [facility] (DEFAULT) [address] [address] Platelets (Bld) [#/Vol] 427 10*3/uL High 150-393 [facility] Comment on above: Performed By: #### X M #### [facility] (DEFAULT) [address] [address] RBC (Bld) [#/Vol] 2.85 10*6/uL Low 3.91-5.04 [facility] Comment on above: Performed By: #### X M #### [facility] (DEFAULT) [address] [place] [address] RBC Distribution 17.1 % High 10.8-14.9 [facility] Comment on above: Performed By: #### X M #### [facility] (DEFAULT) [address] [place] [address] WBC (Bld) [#/Vol] 8.61 10*3/uL Normal 3.99-11.19 [facility] Comment on above: Performed By: #### X M #### [facility] (DEFAULT) [address] [place] [address] Erythrocyte distribution width (RBC) [Ratio] 17.1 % High 10.8 - 14.9 % [facility] Hematocrit (Bld) [Volume fraction] 25.4 % Low 34.9 - 44.3 % [facility] Hemoglobin (Bld) [Mass/Vol] 7.7 g/dL Low 11.4 - 15.2 g/dL [facility] Interpretation and review of laboratory results Abnormal [facility] MCH (RBC) [Entitic mass] 27.0 pg 25.9 - 33.9 pg [facility] MCHC (RBC) [Mass/Vol] 30.3 g/dL Low 31.4 - 35.9 g/dL [facility] MCV (RBC) [Entitic vol] 89.1 fL 79.6 - 97.7 fL [facility] Platelet mean volume (Bld) [Entitic vol] 10.0 fL 8.5 - 12.2 fL [facility] Platelets (Bld) [#/Vol] 427 10*3/uL High 150 - 393 K/uL [facility] RBC (Bld) [#/Vol] 2.85 10*6/uL Low [facility] WBC (Bld) [#/Vol] 8.61 10*3/uL 3.99 - 11. 19 K/uL [facility] CHEM 7 (LYTES,BUN,CREA,GLUC) on 01-25-2022 Anion gap [Moles/Vol] 13 mmol/L Normal 7-17 [facility] Comment on above: Performed By: #### I PB, CHM7, MGO #### [facility] (DEFAULT) [address] [place] [address] 01412 Chloride [Moles/Vol] 102 mmol/L Normal 98-108 [facility] Comment on above: Performed By: #### I PB, CHM7, MGO #### [facility] (DEFAULT) [address] [place] [address] 79850 CO2 [Moles/Vol] 31 mmol/L Normal 21-31 [facility] Comment on above: Performed By: #### I PB, CHM7, MGO #### [facility] (DEFAULT) [address] [place] [address] 50496 Creatinine [Mass/Vol] 0.64 mg/dL Normal 0.50-1.20 [facility] Comment on above: Performed By: #### I PB, CHM7, MGO #### [facility] (DEFAULT) [address] [place] [address] 81707 eGFR, CKD-EPI, Female >90 Normal >=60 [facility] Comment on above: Result Comment: Repo rted eGFR is based on the CKD-EPI 2020 equation using creatinine, age, and sex. Performed By: #### I PB, CHM7, MGO #### [facility] (DEFAULT) [address] [place] [address] 21754 Glucose [Mass/Vol] 91 mg/dL Normal 70-99 [facility] Comment on above: Performed By: #### I PB, CHM7, MGO #### [facility] (DEFAULT) [address] [place] [address] 49594 Osmolality [Osmolality] 294 mosm/kg Normal 278-305 [facility] Comment on above: Performed By: #### I PB, CHM7, MGO #### [facility] (DEFAULT) [address] [place] [address] 53032 Potassium [Moles/Vol] 3.6 mmol/L Normal 3.5-5.0 [facility] Comment on above: Performed By: #### I PB, CHM7, MGO #### [facility] (DEFAULT) [address] [place] [address] Sodium [Moles/Vol] 142 mmol/L Normal 135-145 [facility] Comment on above: Performed By: #### I PB, CHM7, MGO #### [facility] (DEFAULT) [address] [place] [address] 05338 Urea nitrogen [Mass/Vol] 9 mg/dL Normal 7-25 [facility] Comment on above: Performed By: #### I PB, CHM7, MGO #### [facility] (DEFAULT) [address] [place] [address] 68878 Urea nitrogen/Creatinine [Mass ratio] 14 mg/mg Normal [facility] Comment on above: Performed By: #### I PB, CHM7, MGO #### [facility] (DEFAULT) [address] [place] [address] 21829 Anion gap [Moles/Vol] 13 mmol/L 7 - 17 mmol/L [facility] Chloride [Moles/Vol] 102 mmol/L 98 - 10 8 mmol/L [facility] CO2 [Moles/Vol] 31 mmol/L 21 - 31 mmol/L [facility] Creatinine [Mass/Vol] 0.64 mg/dL 0.50 - 1.20 mg/dL [facility] GFR/1.73 sq M.predicted CKD-EPI (S/P/Bld) [Vol rate/Area] >90 >=60 mL/min/1.73m [facility] Glucose [Mass/Vol] 91 mg/dL 70 - 99 mg/dL [facility] Osmolality Calc [Osmolality] 294 [facility] Potassium [Moles/Vol] 3.6 mmol/L 3.5 - 5.0 mmol/L [facility] Sodium [Moles/Vol] 142 mmol/L 135 - 145 mmol/L [facility] Urea nitrogen [Mass/Vol] 9 mg/dL 7 - 25 mg/dL [facility] Urea nitrogen/Creatinine [Mass ratio] 14 mg/mg [facility] IONIZED CALCIUM, WHOLE BLOOD on 01-25-2022 ICA 4.54 mg/dL Low 4.60-5.30 [facility] Comment on above: Performed By: #### X M #### [facility] (DEFAULT) [address] [place] [address] 75288 Calcium.ionized (Bld) [Moles/Vol] 4.54 mg/dL Low 4.60 - 5.30 mg/dL [facility] Interpretation and review of laboratory results Abnormal [facility] MAGNESIUMon 01-25-2022 Magnesium [Mass/Vol] 1.8 mg/dL Normal 1.6-2.6 [facility] Comment on above: Performed By: #### I PB, CHM7, MGO #### [facility] (DEFAULT) [address] [place] [address] 31054 Magnesium [Mass/Vol] 1.8 mg/dL 1.6 - 2 .6 mg/dL [facility] No Panel Informationon 01-25 Interpretation and review of laboratory results Normal [facility] PHOSPHATE, INORGANICon 01-25 Phosphorous 4.6 mg/dL Normal 2.2-4.6 [facility] Comment on above: Performed By: #### I PB, CHM7, MGO #### [facility] (DEFAULT) [address] [place] [address] 19457 Phosphate [Mass/Vol] 4.6 mg/dL 2.2 - 4 .6 mg/dL [facility] URINALYSIS REFLEX TO CULTURE PERFORMABLEon 01-25-2022 Appearance (U) Clear Normal Clear [facility] Comment on above: Order Comment: For i ndwelling catheters, specimen collection is acceptable on catheter day 1 and 2 only. ? Performed By: #### U [id number] #### [facility] (DEFAULT) [address] [place] [address] 95098 Bacteria ABSENT Normal ABSENT [facility] Comment on above: Order Comment: For i ndwelling catheters, specimen collection is acceptable on catheter day 1 and 2 only. ? Performed By: #### U [id number] #### [facility] (DEFAULT) [address] [place] [address] 83943 Blood Urine Negative Normal Negative [facility] Comment on above: Order Comment: For i ndwelling catheters, specimen collection is acceptable on catheter day 1 and 2 only. ? Performed By: #### U [id number] #### [facility] (DEFAULT) [address] [place] [address] 20074 Color (U) Yellow Normal Yellow [facility] Comment on above: Order Comment: For i ndwelling catheters, specimen collection is acceptable on catheter day 1 and 2 only. ? Performed By: #### U [id number] #### [facility] (DEFAULT) [address] [place] [address] 96779 Glucose Ql (U) Negative Normal Negative [facility] Comment on above: Order Comment: For i ndwelling catheters, specimen collection is acceptable on catheter day 1 and 2 only. ? Performed By: #### U [id number] #### [facility] (DEFAULT) [address] [place] [address] 09220 Ketones Ql (U) Negative Normal Negative [facility] Comment on above: Order Comment: For i ndwelling catheters, specimen collection is acceptable on catheter day 1 and 2 only. ? Performed By: #### U [id number] #### [facility] (DEFAULT) [address] [place] [address] 33009 Leukocyte esterase Test strip Ql (U) Trace Abnormal Negative [facility] Comment on above: Order Comment: For i ndwelling catheters, specimen collection is acceptable on catheter day 1 and 2 only. ? Performed By: #### U [id number] #### [facility] (DEFAULT) [address] [place] [address] 60893 Nitrites Urine Negative Normal Negative [facility] Comment on above: Order Comment: For i ndwelling catheters, specimen collection is acceptable on catheter day 1 and 2 only. ? Performed By: #### U [id number] #### [facility] (DEFAULT) [address] [place] [address] 78893 pH (U) 5.5 [pH] Normal 5.0-7.0 [facility] Comment on above: Order Comment: For i ndwelling catheters, specimen collection is acceptable on catheter day 1 and 2 only. ? Performed By: #### U [id number] #### [facility] (DEFAULT) [address] [place] [address] 62163 Protein Urine Negative Normal Negative [facility] Comment on above: Order Comment: For i ndwelling catheters, specimen collection is acceptable on catheter day 1 and 2 only. ? Performed By: #### U [id number] #### [facility] (DEFAULT) [address] [place] [address] 63585 RBC Urine 0-2 Normal 0-2 [facility] Comment on above: Order Comment: For i ndwelling catheters, specimen collection is acceptable on catheter day 1 and 2 only. ? Performed By: #### U [id number] #### [facility] (DEFAULT) [address] [place] [address] 13227 Specific [place] Urine 1.008 Normal 1.001-1.035 [facility] Comment on above: Order Comment: For i ndwelling catheters, specimen collection is acceptable on catheter day 1 and 2 only. ? Performed By: #### U [id number] #### [facility] (DEFAULT) [address] [place] [address] 45343 Squamous/Epithelial Cells 2-5/hpf = 2+ Normal 1/hpf = 1+, 2-5/hpf = 2+, 0/hpf = 0+, ABSENT [facility] Comment on above: Order Comment: For i ndwelling catheters, specimen collection is acceptable on catheter day 1 and 2 only. ? Performed By: #### U [id number] #### [facility] (DEFAULT) [address] [place] [address] 75073 Urobilinogen Urine 0.2 E.U./dL Normal 0.2 E.U/d L, 1.0 E.U/dL [facility] Comment on above: Order Comment: For i ndwelling catheters, specimen collection is acceptable on catheter day 1 and 2 only. ? Performed By: #### U [id number] #### [facility] (DEFAULT) [address] [place] [address] 53416 WBC Urine 0-5 Normal 0-5 [facility] Comment on above: Order Comment: For i ndwelling catheters, specimen collection is acceptable on catheter day 1 and 2 only. ? Performed By: #### U [id number] #### [facility] (DEFAULT) [address] [place] [address] 92976 Appearance (U) Clear Clear [facility] Bacteria LM Ql (Urine sed) ABSENT ABSENT [facility] Color (U) Yellow Yellow [facility] Epithelial cells.squamous LM Ql (Urine sed) 2-5/hpf = 2+ 1/hpf = 1+, 2-5/hpf = 2+, 0/hpf = 0+, ABSENT [facility] Glucose Test strip (U) [Mass/Vol] Negative Negative [facility] Interpretation and review of laboratory results Abnormal [facility] Ketones (U) [Mass/Vol] Negative Negative [facility] Leukocyte esterase Test strip Ql (U) Trace Abnormal Negative [facility] Nitrite Ql (U) Negative Negative [facility] pH (U) 5.5 [pH] 5.0 - 7.0 [facility] Protein (U) [Mass/Vol] Negative Negative [facility] RBC (U) [#/Vol] [facility] RBC LM.HPF (Urine sed) [#/Area] 0-2 0 - 2 /HPF [facility] Specific gravity (U) [Rel density] 1.008 [facility] Urobilinogen (U) [Mass/Vol] 0.2 E.U./dL 0.2 E.U/dL, 1.0 E.U/dL [facility] WBC LM.HPF (Urine sed) [#/Area] 0-5 0 - 5 /HPF [facility] CBC,PLATELETSon 01-24-2022 Hematocrit (Bld) [Volume fraction] 26.5 % Low 34.9-44.3 [facility] Comment on above: Performed By: #### X M #### [facility] (DEFAULT) [address] [place] [address] 83723 Hemoglobin (Bld) [Mass/Vol] 8.1 g/dL Low 11.4-15.2 [facility] Comment on above: Performed By: #### X M #### [facility] (DEFAULT) [address] [place] [address] 77580 MCV (RBC) [Entitic vol] 87.7 fL Normal 79.6-97.7 [facility] Comment on above: Performed By: #### X M #### [facility] (DEFAULT) [address] [place] [address] 23695 Mean Cell Hgb 26.8 pg Normal 25.9-33.9 [facility] Comment on above: Performed By: #### X M #### [facility] (DEFAULT) [address] [place] [address] 95214 Mean Cell Hgb Conc 30.6 g/dL Low 31.4-35.9 [facility] Comment on above: Performed By: #### X M #### [facility] (DEFAULT) [address] [place] [address] 89881 Platelet mean volume (Bld) [Entitic vol] 9.4 fL Normal 8.5-12.2 [facility] Comment on above: Performed By: #### X M #### [facility] (DEFAULT) [address] [place] [address] 42835 Platelets (Bld) [#/Vol] 459 10*3/uL High 150-393 [facility] Comment on above: Performed By: #### X M #### [facility] (DEFAULT) [address] [place] [address] 61228 RBC (Bld) [#/Vol] 3.02 10*6/uL Low 3.91-5.04 [facility] Comment on above: Performed By: #### X M #### [facility] (DEFAULT) [address] [place] [address] 90689 RBC Distribution 17.4 % High 10.8-14.9 [facility] Comment on above: Performed By: #### X M #### [facility] (DEFAULT) [address] [place] [address] 79334 WBC (Bld) [#/Vol] 10.98 10*3/uL Normal 3.99-11.19 [facility] Comment on above: Performed By: #### X M #### [facility] (DEFAULT) [address] [place] [address] 01813 Erythrocyte distribution width (RBC) [Ratio] 17.4 % High 10.8 - 14.9 % [facility] Hematocrit (Bld) [Volume fraction] 26.5 % Low 34.9 - 44.3 % [facility] Hemoglobin (Bld) [Mass/Vol] 8.1 g/dL Low 11.4 - 15.2 g/dL [facility] Interpretation and review of laboratory results Abnormal [facility] MCH (RBC) [Entitic mass] 26.8 pg 25.9 - 33.9 pg [facility] MCHC (RBC) [Mass/Vol] 30.6 g/dL Low 31.4 - 35.9 g/dL [facility] MCV (RBC) [Entitic vol] 87.7 fL 79.6 - 97.7 fL [facility] Platelet mean volume (Bld) [Entitic vol] 9.4 fL 8.5 - 12.2 fL [facility] Platelets (Bld) [#/Vol] 459 10*3/uL High 150 - 393 K/uL [facility] RBC (Bld) [#/Vol] 3.02 10*6/uL Low [facility] WBC (Bld) [#/Vol] 10.98 10*3/uL 3.99 - 11 .19 K/uL [facility] CHEM 7 (LYTES,BUN,CREA,GLUC) on 01-24-2022 Anion gap [Moles/Vol] 11 mmol/L Normal 7-17 [facility] Comment on above: Performed By: #### T YPEC #### [facility] (DEFAULT) [address] [address] Chloride [Moles/Vol] 101 mmol/L Normal 98-108 [facility] Comment on above: Performed By: #### T YPEC #### [facility] (DEFAULT) [address] [address] CO2 [Moles/Vol] 31 mmol/L Normal 21-31 [facility] Comment on above: Performed By: #### T YPEC #### [facility] (DEFAULT) [address] [address] Creatinine [Mass/Vol] 0.50 mg/dL Normal 0.50-1.20 [facility] Comment on above: Performed By: #### T YPEC #### [facility] (DEFAULT) [address] [place] [address] 24831 eGFR, CKD-EPI, Female >90 Normal >=60 [facility] Comment on above: Result Comment: Repo rted eGFR is based on the CKD-EPI 2020 equation using creatinine, age, and sex. Performed By: #### T YPEC #### [facility] (DEFAULT) [address] [place] [address] 74050 Glucose [Mass/Vol] 99 mg/dL Normal 70-99 [facility] Comment on above: Performed By: #### T YPEC #### [facility] (DEFAULT) [address] [place] [address] 08347 Osmolality [Osmolality] 288 mosm/kg Normal 278-305 [facility] Comment on above: Performed By: #### T YPEC #### [facility] (DEFAULT) [address] [place] [address] 81163 Potassium [Moles/Vol] 3.8 mmol/L Normal 3.5-5.0 [facility] Comment on above: Performed By: #### T YPEC #### [facility] (DEFAULT) [address] [place] [address] 76267 Sodium [Moles/Vol] 139 mmol/L Normal 135-145 [facility] Comment on above: Performed By: #### T YPEC #### [facility] (DEFAULT) [address] [place] [address] 95013 Urea nitrogen [Mass/Vol] 7 mg/dL Normal 7-25 [facility] Comment on above: Performed By: #### T YPEC #### [facility] (DEFAULT) [address] [place] [address] 90022 Urea nitrogen/Creatinine [Mass ratio] 14 mg/mg Normal [facility] Comment on above: Performed By: #### T YPEC #### [facility] (DEFAULT) [address] [place] [address] 19179 Anion gap [Moles/Vol] 11 mmol/L 7 - 17 mmol/L [facility] Chloride [Moles/Vol] 101 mmol/L 98 - 10 8 mmol/L [facility] CO2 [Moles/Vol] 31 mmol/L 21 - 31 mmol/L [facility] Creatinine [Mass/Vol] 0.50 mg/dL 0.50 - 1.20 mg/dL [facility] GFR/1.73 sq M.predicted CKD-EPI (S/P/Bld) [Vol rate/Area] >90 >=60 mL/min/1.73m 2 [facility] Glucose [Mass/Vol] 99 mg/dL 70 - 99 mg/dL [facility] Osmolality [facility]olality] [facility] Potassium [Moles/Vol] 3.8 mmol/L 3.5 - 5.0 mmol/L [facility] Sodium [Moles/Vol] 139 mmol/L 135 - 145 mmol/L [facility] Urea nitrogen [Mass/Vol] 7 mg/dL 7 - 25 mg/dL [facility] Urea nitrogen/Creatinine [Mass ratio] 14 mg/mg [facility] IONIZED CALCIUM, WHOLE BLOOD on 01-24-2022 ICA 4.77 mg/dL Normal 4.60-5.30 [facility] Comment on above: Performed By: #### I PB, CHM7, MGO #### [facility] (DEFAULT) [address] [place] [address] 49460 IONIZED CALCIUM, WHOLE BLOOD Ordered By: Theresa Hooper on 01-24-2022 Calcium.ionized (Bld) [Moles/Vol] 4.77 mg/dL 4.60 - 5.30 mg/dL [facility] Interpretation and review of laboratory results Normal [facility] MAGNESIUMon 01-24-2022 Magnesium [Mass/Vol] 1.7 mg/dL Normal 1.6-2.6 [facility] Comment on above: Performed By: #### T YPEC #### [facility] (DEFAULT) [address] [place] [address] 84668 Magnesium [Mass/Vol] 1.7 mg/dL 1.6 - 2 .6 mg/dL [facility] No Panel Informationon 01-24 Interpretation and review of laboratory results Normal [facility] PHOSPHATE, INORGANICon 01-24 Phosphorous 3.6 mg/dL Normal 2.2-4.6 [facility] Comment on above: Performed By: #### T YPEC #### [facility] (DEFAULT) [address] [place] [address] 38355 Phosphate [Mass/Vol] 3.6 mg/dL 2.2 - 4 .6 mg/dL [facility] CBC,PLATELETSon 01-23-2022 Hematocrit (Bld) [Volume fraction] 26.3 % Low 34.9-44.3 [facility] Comment on above: Performed By: #### I PB, CHM7, MGO #### [facility] (DEFAULT) [address] [place] [address] 23590 Hemoglobin (Bld) [Mass/Vol] 7.7 g/dL Low 11.4-15.2 [facility] Comment on above: Performed By: #### I PB, CHM7, MGO #### [facility] (DEFAULT) [address] [place] [address] 54019 MCV (RBC) [Entitic vol] 92.0 fL Normal 79.6-97.7 [facility] Comment on above: Performed By: #### I PB, CHM7, MGO #### [facility] (DEFAULT) [address] [place] [address] 60719 Mean Cell Hgb 26.9 pg Normal 25.9-33.9 [facility] Comment on above: Performed By: #### I PB, CHM7, MGO #### [facility] (DEFAULT) [address] [place] [address] 54496 Mean Cell Hgb Conc 29.3 g/dL Low 31.4-35.9 [facility] Comment on above: Performed By: #### I PB, CHM7, MGO #### [facility] (DEFAULT) [address] [place] [address] 37422 Platelet mean volume (Bld) [Entitic vol] 9.6 fL Normal 8.5-12.2 [facility] Comment on above: Performed By: #### I PB, CHM7, MGO #### [facility] (DEFAULT) [address] [place] [address] 17244 Platelets (Bld) [#/Vol] 399 10*3/uL High 150-393 [facility] Comment on above: Performed By: #### I PB, CHM7, MGO #### [facility] (DEFAULT) [address] [place] [address] 19709 RBC (Bld) [#/Vol] 2.86 10*6/uL Low 3.91-5.04 [facility] Comment on above: Performed By: #### I PB, CHM7, MGO #### [facility] (DEFAULT) [address] [place] [address] 43169 RBC Distribution 17.3 % High 10.8-14.9 [facility] Comment on above: Performed By: #### I PB, CHM7, MGO #### [facility] (DEFAULT) [address] [place] [address] 33484 WBC (Bld) [#/Vol] 10.90 10*3/uL Normal 3.99-11.19 [facility] Comment on above: Performed By: #### I PB, CHM7, MGO #### [facility] (DEFAULT) [address] [place] [address] 68953 Erythrocyte distribution width (RBC) [Ratio] 17.3 % High 10.8 - 14.9 % [facility] Hematocrit (Bld) [Volume fraction] 26.3 % Low 34.9 - 44.3 % [facility] Hemoglobin (Bld) [Mass/Vol] 7.7 g/dL Low 11.4 - 15.2 g/dL [facility] Interpretation and review of laboratory results Abnormal [facility] MCH (RBC) [Entitic mass] 26.9 pg 25.9 - 33.9 pg [facility] MCHC (RBC) [Mass/Vol] 29.3 g/dL Low 31.4 - 35.9 g/dL [facility] MCV (RBC) [Entitic vol] 92.0 fL 79.6 - 97.7 fL [facility] Platelet mean volume (Bld) [Entitic vol] 9.6 fL 8.5 - 12.2 fL [facility] Platelets (Bld) [#/Vol] 399 10*3/uL High 150 - 393 K/uL [facility] RBC (Bld) [#/Vol] 2.86 10*6/uL Low [facility] WBC (Bld) [#/Vol] 10.90 10*3/uL 3.99 - 11 .19 K/uL [facility] CHEM 7 (LYTES,BUN,CREA,GLUC) on 01-23-2022 Anion gap [Moles/Vol] 12 mmol/L Normal 7-17 [facility] Comment on above: Performed By: #### I PB, CHM7, MGO #### [facility] (DEFAULT) [address] [place] [address] 56596 Chloride [Moles/Vol] 105 mmol/L Normal 98-108 [facility] Comment on above: Performed By: #### I PB, CHM7, MGO #### [facility] (DEFAULT) [address] [place] [address] 06306 CO2 [Moles/Vol] 30 mmol/L Normal 21-31 [facility] Comment on above: Performed By: #### I PB, CHM7, MGO #### [facility] (DEFAULT) [address] [place] [address] 52782 Creatinine [Mass/Vol] 0.54 mg/dL Normal 0.50-1.20 [facility] Comment on above: Performed By: #### I PB, CHM7, MGO #### [facility] (DEFAULT) [address] [place] [address] 84910 eGFR, CKD-EPI, Female >90 Normal >=60 [facility] Comment on above: Result Comment: Repo rted eGFR is based on the CKD-EPI 2020 equation using creatinine, age, and sex. Performed By: #### I PB, CHM7, MGO #### [facility] (DEFAULT) [address] [place] [address] 23749 Glucose [Mass/Vol] 92 mg/dL Normal 70-99 [facility] Comment on above: Performed By: #### I PB, CHM7, MGO #### [facility] (DEFAULT) [address] [place] [address] 09124 Osmolality [Osmolality] 296 mosm/kg Normal 278-305 [facility] Comment on above: Performed By: #### I PB, CHM7, MGO #### [facility] (DEFAULT) [address] [place] [address] 55889 Potassium [Moles/Vol] 3.8 mmol/L Normal 3.5-5.0 [facility] Comment on above: Performed By: #### Derick PB, CHM7, MGO #### [facility] (DEFAULT) [address] [place] [address] 08110 Sodium [Moles/Vol] 143 mmol/L Normal 135-145 [facility] Comment on above: Performed By: #### Derick PB, CHM7, MGO #### [facility] (DEFAULT) [address] [place] [address] 09646 Urea nitrogen [Mass/Vol] 8 mg/dL Normal 7-25 [facility] Comment on above: Performed By: #### Derick PB, CHM7, MGO #### [facility] (DEFAULT) [address] [place] [address] 15317 Urea nitrogen/Creatinine [Mass ratio] 15 mg/mg Normal [facility] Comment on above: Performed By: #### I PB, CHM7, MGO #### [facility] (DEFAULT) [address] [place] [address] 19842 Anion gap [Moles/Vol] 12 mmol/L 7 - 17 mmol/L [facility] Chloride [Moles/Vol] 105 mmol/L 98 - 10 8 mmol/L [facility] CO2 [Moles/Vol] 30 mmol/L 21 - 31 mmol/L [facility] Creatinine [Mass/Vol] 0.54 mg/dL 0.50 - 1.20 mg/dL [facility] GFR/1.73 sq M.predicted CKD-EPI (S/P/Bld) [Vol rate/Area] >90 >=60 mL/min/1.73m 2 [facility] Glucose [Mass/Vol] 92 mg/dL 70 - 99 mg/dL [facility] Osmolality Calc [Osmolality] 296 [facility] Potassium [Moles/Vol] 3.8 mmol/L 3.5 - 5.0 mmol/L [facility] Sodium [Moles/Vol] 143 mmol/L 135 - 145 mmol/L [facility] Urea nitrogen [Mass/Vol] 8 mg/dL 7 - 25 mg/dL [facility] Urea nitrogen/Creatinine [Mass ratio] 15 mg/mg [facility] ECGOrdered By: Colten mejia on 01-23-2022 [facility] Work Phone: HEMOGLOBIN & HEMATOCRITon Hematocrit (Bld) [Volume fraction] 26.0 % Low 34.9-44.3 [facility] Comment on above: Performed By: #### I ANTELMO MONTESINOS, MGO #### [facility] (DEFAULT) [address] [address] Hemoglobin (Bld) [Mass/Vol] 7.8 g/dL Low 11.4-15.2 [facility] Comment on above: Performed By: #### I ANTELMO MONTESINOS, MGO #### [facility] (DEFAULT) [address] [place] [address] 96775 Hematocrit (Bld) [Volume fraction] 26.0 % Low 34.9 - 44.3 % [facility] Hemoglobin (Bld) [Mass/Vol] 7.8 g/dL Low 11.4 - 15.2 g/dL [facility] Interpretation and review of laboratory results Abnormal [facility] IONIZED CALCIUM, WHOLE BLOOD on 01-23-2022 ICA 4.75 mg/dL Normal 4.60-5.30 [facility] Comment on above: Performed By: #### T YPEC #### [facility] (DEFAULT) [address] [place] [address] 01324 Calcium.ionized (Bld) [Moles/Vol] 4.75 mg/dL 4.60 - 5.30 mg/dL [facility] Interpretation and review of laboratory results Normal [facility] MAGNESIUMon 01-23-2022 Magnesium [Mass/Vol] 1.8 mg/dL Normal 1.6-2.6 [facility] Comment on above: Performed By: #### I PB, CHM7, MGO #### [facility] (DEFAULT) [address] [place] [address] 53943 Magnesium [Mass/Vol] 1.8 mg/dL 1.6 - 2 .6 mg/dL [facility] No Panel Informationon 01-23 Interpretation and review of laboratory results Normal [facility] PHOSPHATE, INORGANICon 01-23 Phosphorous 2.9 mg/dL Normal 2.2-4.6 [facility] Comment on above: Performed By: #### I PB, CHM7, MGO #### [facility] (DEFAULT) [address] [place] [address] 97961 Phosphate [Mass/Vol] 2.9 mg/dL 2.2 - 4 .6 mg/dL [facility] CBC,PLATELETSon 01-22-2022 Hematocrit (Bld) [Volume fraction] 25.7 % Low 34.9-44.3 [facility] Comment on above: Performed By: #### L [id number] #### [facility] (DEFAULT) [address] [place] [address] 92580 Hemoglobin (Bld) [Mass/Vol] 7.6 g/dL Low 11.4-15.2 [facility] Comment on above: Performed By: #### L [id number] #### [facility] (DEFAULT) [address] [place] [address] 06316 MCV (RBC) [Entitic vol] 91.8 fL Normal 79.6-97.7 [facility] Comment on above: Performed By: #### L [id number] #### [facility] (DEFAULT) [address] [address] Mean Cell Hgb 27.1 pg Normal 25.9-33.9 [facility] Comment on above: Performed By: #### L [id number] #### [facility] (DEFAULT) [address] [address] Mean Cell Hgb Conc 29.6 g/dL Low 31.4-35.9 [facility] Comment on above: Performed By: #### L [id number] #### [facility] (DEFAULT) [address] [address] Platelet mean volume (Bld) [Entitic vol] 9.4 fL Normal 8.5-12.2 [facility] Comment on above: Performed By: #### L [id number] #### [facility] (DEFAULT) [address] [address] Platelets (Bld) [#/Vol] 376 10*3/uL Normal 150-393 [facility] Comment on above: Performed By: #### L [id number] #### [facility] (DEFAULT) [address] [address] RBC (Bld) [#/Vol] 2.80 10*6/uL Low 3.91-5.04 [facility] Comment on above: Performed By: #### L [id number] #### [facility] (DEFAULT) [address] [address] RBC Distribution 17.3 % High 10.8-14.9 [facility] Comment on above: Performed By: #### L [id number] #### [facility] (DEFAULT) [address] [address] WBC (Bld) [#/Vol] 13.30 10*3/uL High 3.99-11.19 [facility] Comment on above: Performed By: #### L [id number] #### [facility] (DEFAULT) [address] [place] [address] Erythrocyte distribution width (RBC) [Ratio] 17.3 % High 10.8 - 14.9 % [facility] Hematocrit (Bld) [Volume fraction] 25.7 % Low 34.9 - 44.3 % [facility] Hemoglobin (Bld) [Mass/Vol] 7.6 g/dL Low 11.4 - 15.2 g/dL [facility] Interpretation and review of laboratory results Abnormal [facility] MCH (RBC) [Entitic mass] 27.1 pg 25.9 - 33.9 pg [facility] MCHC (RBC) [Mass/Vol] 29.6 g/dL Low 31.4 - 35.9 g/dL [facility] MCV (RBC) [Entitic vol] 91.8 fL 79.6 - 97.7 fL [facility] Platelet mean volume (Bld) [Entitic vol] 9.4 fL 8.5 - 12.2 fL [facility] Platelets (Bld) [#/Vol] 376 10*3/uL 150 - 393 K/uL [facility] RBC (Bld) [#/Vol] 2.80 10*6/uL Low [facility] WBC (Bld) [#/Vol] 13.30 10*3/uL High 3.99 - 11 .19 K/uL [facility] CHEM 7 (LYTES,BUN,CREA,GLUC) on 01-22-2022 Anion gap [Moles/Vol] 9 mmol/L Normal 7-17 [facility] Comment on above: Performed By: #### X M #### [facility] (DEFAULT) [address] [place] [address] Chloride [Moles/Vol] 107 mmol/L Normal 98-108 [facility] Comment on above: Performed By: #### X M #### [facility] (DEFAULT) [address] [place] [address] 59947 CO2 [Moles/Vol] 29 mmol/L Normal 21-31 [facility] Comment on above: Performed By: #### X M #### [facility] (DEFAULT) [address] [place] [address] 72531 Creatinine [Mass/Vol] 0.61 mg/dL Normal 0.50-1.20 [facility] Comment on above: Performed By: #### X M #### [facility] (DEFAULT) [address] [place] [address] 84977 eGFR, CKD-EPI, Female >90 Normal >=60 [facility] Comment on above: Result Comment: Repo rted eGFR is based on the CKD-EPI 2020 equation using creatinine, age, and sex. Performed By: #### X M #### [facility] (DEFAULT) [address] [place] [address] 13075 Glucose [Mass/Vol] 89 mg/dL Normal 70-99 [facility] Comment on above: Performed By: #### X M #### [facility] (DEFAULT) [address] [place] [address] 18778 Osmolality [Osmolality] 294 mosm/kg Normal 278-305 [facility] Comment on above: Performed By: #### X M #### [facility] (DEFAULT) [address] [place] [address] 45602 Potassium [Moles/Vol] 4.0 mmol/L Normal 3.5-5.0 [facility] Comment on above: Performed By: #### X M #### [facility] (DEFAULT) [address] [place] [address] 85234 Sodium [Moles/Vol] 141 mmol/L Normal 135-145 [facility] Comment on above: Performed By: #### X M #### [facility] (DEFAULT) [address] [place] [address] 28308 Urea nitrogen [Mass/Vol] 12 mg/dL Normal 7-25 [facility] Comment on above: Performed By: #### X M #### [facility] (DEFAULT) [address] [place] [address] Urea nitrogen/Creatinine [Mass ratio] 20 mg/mg Normal [facility] Comment on above: Performed By: #### X M #### [facility] (DEFAULT) [address] [place] [address] Anion gap [Moles/Vol] 9 mmol/L 7 - 17 mmol/L [facility] Chloride [Moles/Vol] 107 mmol/L 98 - 10 8 mmol/L [facility] CO2 [Moles/Vol] 29 mmol/L 21 - 31 mmol/L [facility] Creatinine [Mass/Vol] 0.61 mg/dL 0.50 - 1.20 mg/dL [facility] GFR/1.73 sq M.predicted CKD-EPI (S/P/Bld) [Vol rate/Area] >90 >=60 mL/min/1.73m 2 [facility] Glucose [Mass/Vol] 89 mg/dL 70 - 99 mg/dL [facility] Osmolality Calc [Osmolality] 294 [facility] Potassium [Moles/Vol] 4.0 mmol/L 3.5 - 5.0 mmol/L [facility] Sodium [Moles/Vol] 141 mmol/L 135 - 145 mmol/L [facility] Urea nitrogen [Mass/Vol] 12 mg/dL 7 - 25 mg/dL [facility] Urea nitrogen/Creatinine [Mass ratio] 20 mg/mg [facility] HEMOGLOBIN & HEMATOCRITon Hematocrit (Bld) [Volume fraction] 29.3 % Low 34.9-44.3 [facility] Comment on above: Performed By: #### X M #### [facility] (DEFAULT) [address] [place] [address] Hemoglobin (Bld) [Mass/Vol] 8.6 g/dL Low 11.4-15.2 [facility] Comment on above: Performed By: #### X M #### [facility] (DEFAULT) [address] [place] [address] 00366 Hematocrit (Bld) [Volume fraction] 29.3 % Low 34.9 - 44.3 % [facility] Hemoglobin (Bld) [Mass/Vol] 8.6 g/dL Low 11.4 - 15.2 g/dL [facility] Interpretation and review of laboratory results Abnormal [facility] IONIZED CALCIUM, WHOLE BLOOD on 01-22-2022 Calcium.ionized (Bld) [Moles/Vol] 4.15 mg/dL Low 4.60 - 5.30 mg/dL [facility] Interpretation and review of laboratory results Abnormal [facility] ICA 4.15 mg/dL Low 4.60-5.30 [facility] Comment on above: Performed By: #### X M #### [facility] (DEFAULT) [address] [place] [address] 18153 MAGNESIUMon 01-22-2022 Magnesium [Mass/Vol] 1.9 mg/dL Normal 1.6-2.6 [facility] Comment on above: Performed By: #### X M #### [facility] (DEFAULT) [address] [place] [address] 29631 Magnesium [Mass/Vol] 1.9 mg/dL 1.6 - 2 .6 mg/dL [facility] No Panel Informationon 01-22 Interpretation and review of laboratory results Normal [facility] PHOSPHATE, INORGANICon 01-22 Phosphorous 4.2 mg/dL Normal 2.2-4.6 [facility] Comment on above: Performed By: #### X M #### [facility] (DEFAULT) [address] [place] [address] 34113 Phosphate [Mass/Vol] 4.2 mg/dL 2.2 - 4 .6 mg/dL [facility] CARDIAC RHYTHM (SCANNED)on 0 7-20-2022 [facility] CBC,PLATELETSon 01-21-2022 Hematocrit (Bld) [Volume fraction] 29.1 % Low 34.9-44.3 [facility] Comment on above: Performed By: #### H EMOGC ####[facility] (DEFAULT)[address] [facility] [place] [address] Hemoglobin (Bld) [Mass/Vol] 8.6 g/dL Low 11.4-15.2 [facility] Comment on above: Performed By: #### H EMOGC ####[facility] (DEFAULT)[address] [facility] [place] [address] MCV (RBC) [Entitic vol] 89.3 fL Normal 79.6-97.7 [facility] Comment on above: Performed By: #### H EMOGC ####[facility] (DEFAULT)[address] [facility] [place] [address] Mean Cell Hgb 26.4 pg Normal 25.9-33.9 [facility] Comment on above: Performed By: #### H EMOGC ####[facility] (DEFAULT)[address] [facility] [place] [address] Mean Cell Hgb Conc 29.6 g/dL Low 31.4-35.9 [facility] Comment on above: Performed By: #### H EMOGC ####[facility] (DEFAULT)[address] [facility] [place] [place] [address] Platelet mean volume (Bld) [Entitic vol] 9.5 fL Normal 8.5-12.2 [facility] Comment on above: Performed By: #### H EMOGC ####[facility] (DEFAULT)[address] [facility] [place] [address] Platelets (Bld) [#/Vol] 365 10*3/uL Normal 150-393 [facility] Comment on above: Performed By: #### H EMOGC ####[facility] (DEFAULT)[address] [place] [address] RBC (Bld) [#/Vol] 3.26 10*6/uL Low 3.91-5.04 [facility] Comment on above: Performed By: #### H [facility] ####[facility] (DEFAULT)[address] [facility] [place] [address] RBC Distribution 17.1 % High 10.8-14.9 [facility] Comment on above: Performed By: #### H [facility] ####[facility] (DEFAULT)[address] [facility] [place] [address] WBC (Bld) [#/Vol] 13.24 10*3/uL High 3.99-11.19 [facility] Comment on above: Performed By: #### H [facility] ####[facility] (DEFAULT)[address] [place] [address] Erythrocyte distribution width (RBC) [Ratio] 17.1 % High 10.8 - 14.9 % [facility] Hematocrit (Bld) [Volume fraction] 29.1 % Low 34.9 - 44.3 % [facility] Hemoglobin (Bld) [Mass/Vol] 8.6 g/dL Low 11.4 - 15.2 g/dL [facility] Interpretation and review of laboratory results Abnormal [facility] MCH (RBC) [Entitic mass] 26.4 pg 25.9 - 33.9 pg [facility] MCHC (RBC) [Mass/Vol] 29.6 g/dL Low 31.4 - 35.9 g/dL [facility] MCV (RBC) [Entitic vol] 89.3 fL 79.6 - 97.7 fL [facility] Platelet mean volume (Bld) [Entitic vol] 9.5 fL 8.5 - 12.2 fL [facility] Platelets (Bld) [#/Vol] 365 10*3/uL 150 - 393 K/uL [facility] RBC (Bld) [#/Vol] 3.26 10*6/uL Low [facility] WBC (Bld) [#/Vol] 13.24 10*3/uL High 3.99 - 11 .19 K/uL [facility] CHEM 7 (LYTES,BUN,CREA,GLUC) on 01-21-2022 Anion gap [Moles/Vol] 14 mmol/L Normal 7-17 [facility] Comment on above: Performed By: #### X M #### [facility] (DEFAULT) [address] [place] [address] Chloride [Moles/Vol] 101 mmol/L Normal 98-108 [facility] Comment on above: Performed By: #### X M #### [facility] (DEFAULT) [address] [place] [address] 65798 CO2 [Moles/Vol] 33 mmol/L High 21-31 [facility] Comment on above: Performed By: #### X M #### [facility] (DEFAULT) [address] [place] [address] 65979 Creatinine [Mass/Vol] 0.53 mg/dL Normal 0.50-1.20 [facility] Comment on above: Performed By: #### X M #### [facility] (DEFAULT) [address] [place] [address] 69294 eGFR, CKD-EPI, Female >90 Normal >=60 [facility] Comment on above: Result Comment: Repo rted eGFR is based on the CKD-EPI 2020 equation using creatinine, age, and sex. Performed By: #### X M #### [facility] (DEFAULT) [address] [place] [address]236 Glucose [Mass/Vol] 92 mg/dL Normal 70-99 [facility] Comment on above: Performed By: #### X M #### [facility] (DEFAULT) [address] [place] [address] 54998 Osmolality [Osmolality] 301 mosm/kg Normal 278-305 [facility] Comment on above: Performed By: #### X M #### [facility] (DEFAULT) [address] [place] [address] Potassium [Moles/Vol] 5.0 mmol/L Normal 3.5-5.0 [facility] Comment on above: Performed By: #### X M #### [facility] (DEFAULT) [address] [place] [address] Sodium [Moles/Vol] 143 mmol/L Normal 135-145 [facility] Comment on above: Performed By: #### X M #### [facility] (DEFAULT) [address] [place] [address] Urea nitrogen [Mass/Vol] 15 mg/dL Normal 7-25 [facility] Comment on above: Performed By: #### X M #### [facility] (DEFAULT) [address] [place] [address] 20233 Urea nitrogen/Creatinine [Mass ratio] 28 mg/mg Normal [facility] Comment on above: Performed By: #### X M #### [facility] (DEFAULT) [address] [place] [address] 78795 Anion gap [Moles/Vol] 14 mmol/L 7 - 17 mmol/L [facility] Chloride [Moles/Vol] 101 mmol/L 98 - 10 8 mmol/L [facility] CO2 [Moles/Vol] 33 mmol/L High 21 - 31 mmol/L [facility] Creatinine [Mass/Vol] 0.53 mg/dL 0.50 - 1.20 mg/dL [facility] GFR/1.73 sq M.predicted CKD-EPI (S/P/Bld) [Vol rate/Area] >90 >=60 mL/min/1.73m 2 [facility] Glucose [Mass/Vol] 92 mg/dL 70 - 99 mg/dL [facility] Interpretation and review of laboratory results Abnormal [facility] Osmolality Calc [Osmolality] 301 [facility] Potassium [Moles/Vol] 5.0 mmol/L 3.5 - 5.0 mmol/L [facility] Sodium [Moles/Vol] 143 mmol/L 135 - 145 mmol/L [facility] Urea nitrogen [Mass/Vol] 15 mg/dL 7 - 25 mg/dL [facility] Urea nitrogen/Creatinine [Mass ratio] 28 mg/mg [facility]AST[facility] 0 01-21-2022 [...] have reviewed and approved this report. Normal [facility] CT Head WO contraston 2021 RADIOLOGY RADIOLOGY [facility] Radiology Study observation (narrative) [facility] CT Head WO contrastOrdered B y: Radha Rosa on 01-21-2022 [facility] Work Phone: IONIZED CALCIUM, WHOLE BLOOD on 01-21-2022 ICA 4.86 mg/dL Normal 4.60-5.30 [facility] Comment on above: Performed By: #### U [id number] #### [facility] (DEFAULT) [address] [place] [address] 51222 Calcium.ionized (Bld) [Moles/Vol] 4.86 mg/dL 4.60 - 5.30 mg/dL [facility] Interpretation and review of laboratory results Normal [facility] MAGNESIUMon 01-21-2022 Magnesium [Mass/Vol] 2.0 mg/dL Normal 1.6-2.6 [facility] Comment on above: Performed By: #### X M #### [facility] (DEFAULT) [address] [place] [address] 24153 Magnesium [Mass/Vol] 2.0 mg/dL 1.6 - 2 .6 mg/dL [facility] No Panel Informationon 01-21 Interpretation and review of laboratory results Normal [facility] PHOSPHATE, INORGANICon 01-21 Phosphorous 4.4 mg/dL Normal 2.2-4.6 [facility] Comment on above: Performed By: #### X M #### [facility] (DEFAULT) [address] [place] [address]509 Phosphate [Mass/Vol] 4.4 mg/dL 2.2 - 4 .6 mg/dL [facility] PT,INR,PTTon 01-21-2022 aPTT Coag (Bld) [Time] 27.4 s Normal 24.0-34.3 [facility] Comment on above: Performed By: #### G AS5L #### [facility] (DEFAULT) [address] [place] [address] 16371 INR Coag (PPP) [Relative time] 1.0 {INR} Normal 0.9-1.1 [facility] Comment on above: Performed By: #### G AS5L #### [facility] (DEFAULT) [address] [place] [address] PT Coag (PPP) [Time] 13.4 s Normal 11.9-14.2 [facility] Comment on above: Performed By: #### G AS5L #### [facility] (DEFAULT) [address] [place] [address] 18443 aPTT Coag (PPP) [Time] 27.4 s [facility] INR Coag (Bld) [Relative time] 1.0 {INR} [facility] Interpretation and review of laboratory results Normal [facility] PT Coag (PPP) [Time] 13.4 s [facility] Portable XR Chest Viewson RADIOLOGY RADIOLOGY [facility] SCREEN: MRSA/MSSAOrdered By: Ericka Hansen on 01-21-2022 Interpretation and review of laboratory results Normal [facility] Methicillin Resistant S. Aureus By Pcr Negative Negative [facility] Staphylococcus Aureus By Pcr Negative Negative [facility] SCREEN: MRSA/MSSAon 01-22-20 Methicillin Resistant S. Aureus By Pcr Negative Normal Negative [facility] Comment on above: Order Comment: Colle ct [...] by the Clinical Microbiology Laboratory at [facility]. It has not been cleared or approved by the FDA.The laboratory is regulated under CLIA as qualified to perform high-complexity testing. This test is used for clinical purposes. It should not be regarded as investigational or for research. Performed By: #### X M #### [facility] (DEFAULT) [address] [address] Staphylococcus Aureus By Pcr Negative Normal Negative [facility] Comment on above: Order Comment: Colle ct [...] by the Clinical Microbiology Laboratory at [facility]. It has not been cleared or approved by the FDA.The laboratory is regulated under CLIA as qualified to perform high-complexity testing. This test is used for clinical purposes. It should not be regarded as investigational or for research. Performed By: #### X M #### [facility] (DEFAULT) [address] [address] TYPE AND SCREENon 01-21-2022 ABO/RH(D) TYPE Positive Normal [facility] Comment on above: Performed By: #### X M ####[facility] (DEFAULT)[address] [place] [address] ABO/RH(D) TYPE Positive [facility] XR CHEST PORTABLEon 01-22-20 XR CHEST PORTABLE [...] have reviewed and approved this report. Normal [facility] CBC,PLATELETSon 01-20-2022 Hematocrit (Bld) [Volume fraction] 30.9 % Low 34.9-44.3 [facility] Comment on above: Performed By: #### X M #### [facility] (DEFAULT) [address] [address] Hemoglobin (Bld) [Mass/Vol] 9.2 g/dL Low 11.4-15.2 [facility] Comment on above: Performed By: #### X M #### [facility] (DEFAULT) [address] [address] MCV (RBC) [Entitic vol] 90.4 fL Normal 79.6-97.7 [facility] Comment on above: Performed By: #### X M #### [facility] (DEFAULT) [address] [address] Mean Cell Hgb 26.9 pg Normal 25.9-33.9 [facility] Comment on above: Performed By: #### X M #### [facility] (DEFAULT) [address] [address] Mean Cell Hgb Conc 29.8 g/dL Low 31.4-35.9 [facility] Comment on above: Performed By: #### X M #### [facility] (DEFAULT) [address] [address] Platelet mean volume (Bld) [Entitic vol] 9.7 fL Normal 8.5-12.2 [facility] Comment on above: Performed By: #### X M #### [facility] (DEFAULT) [address] [address] Platelets (Bld) [#/Vol] 369 10*3/uL Normal 150-393 [facility] Comment on above: Performed By: #### X M #### [facility] (DEFAULT) [address] [place] [address] 80184 RBC (Bld) [#/Vol] 3.42 10*6/uL Low 3.91-5.04 [facility] Comment on above: Performed By: #### X M #### [facility] (DEFAULT) [address] [place] [address]61 RBC Distribution 17.4 % High 10.8-14.9 [facility] Comment on above: Performed By: #### X M #### [facility] (DEFAULT) [address] [place] [address] WBC (Bld) [#/Vol] 14.33 10*3/uL High 3.99-11.19 [facility] Comment on above: Performed By: #### X M #### [facility] (DEFAULT) [address] [place] [address] 60933 Erythrocyte distribution width (RBC) [Ratio] 17.4 % High 10.8 - 14.9 % [facility] Hematocrit (Bld) [Volume fraction] 30.9 % Low 34.9 - 44.3 % [facility] Hemoglobin (Bld) [Mass/Vol] 9.2 g/dL Low 11.4 - 15.2 g/dL [facility] Interpretation and review of laboratory results Abnormal [facility] MCH (RBC) [Entitic mass] 26.9 pg 25.9 - 33.9 pg [facility] MCHC (RBC) [Mass/Vol] 29.8 g/dL Low 31.4 - 35.9 g/dL [facility] MCV (RBC) [Entitic vol] 90.4 fL 79.6 - 97.7 fL [facility] Platelet mean volume (Bld) [Entitic vol] 9.7 fL 8.5 - 12.2 fL [facility] Platelets (Bld) [#/Vol] 369 10*3/uL 150 - 393 K/uL [facility] RBC (Bld) [#/Vol] 3.42 10*6/uL Low [facility] WBC (Bld) [#/Vol] 14.33 10*3/uL High 3.99 - 11 .19 K/uL [facility] CHEM 7 (LYTES,BUN,CREA,GLUC) on 01-20-2022 Anion gap [Moles/Vol] 11 mmol/L Normal 7-17 [facility] Comment on above: Performed By: #### I PB, CHM7, MGO #### [facility] (DEFAULT) [address] [place] [address] Chloride [Moles/Vol] 101 mmol/L Normal 98-108 [facility] Comment on above: Performed By: #### I PB, CHM7, MGO #### [facility] (DEFAULT) [address] [place] [address]46 CO2 [Moles/Vol] 34 mmol/L High 21-31 [facility] Comment on above: Performed By: #### I PB, CHM7, MGO #### [facility] (DEFAULT) [address] [place] [address] Creatinine [Mass/Vol] 0.57 mg/dL Normal 0.50-1.20 [facility] Comment on above: Performed By: #### I PB, CHM7, MGO #### [facility] (DEFAULT) [address] [place] [address] 95437 eGFR, CKD-EPI, Female >90 Normal >=60 [facility] Comment on above: Result Comment: Repo rted eGFR is based on the CKD-EPI 2020 equation using creatinine, age, and sex. Performed By: #### I PB, CHM7, MGO #### [facility] (DEFAULT) [address] [place] [address] 13085 Glucose [Mass/Vol] 107 mg/dL High 70-99 [facility] Comment on above: Performed By: #### I PB, CHM7, MGO #### [facility] (DEFAULT) [address] [place] [address]1539 Osmolality [Osmolality] 300 mosm/kg Normal 278-305 [facility] Comment on above: Performed By: #### I PB, CHM7, MGO #### [facility] (DEFAULT) [address] [place] [address]25 Potassium [Moles/Vol] 3.9 mmol/L Normal 3.5-5.0 [facility] Comment on above: Performed By: #### I PB, CHM7, MGO #### [facility] (DEFAULT) [address] [place] [address]897 Sodium [Moles/Vol] 142 mmol/L Normal 135-145 [facility] Comment on above: Performed By: #### I PB, CHM7, MGO #### [facility] (DEFAULT) [address] [place] [address] 14630 Urea nitrogen [Mass/Vol] 22 mg/dL Normal 7-25 [facility] Comment on above: Performed By: #### I PB, CHM7, MGO #### [facility] (DEFAULT) [address] [place] [address] 6[address]12 Urea nitrogen/Creatinine [Mass ratio] 39 mg/mg Normal [facility] Comment on above: Performed By: #### I PB, CHM7, MGO #### [facility] (DEFAULT) [address] [place] [address] 37702 Anion gap [Moles/Vol] 11 mmol/L 7 - 17 mmol/L [facility] Chloride [Moles/Vol] 101 mmol/L 98 - 10 8 mmol/L [facility] CO2 [Moles/Vol] 34 mmol/L High 21 - 31 mmol/L [facility] Creatinine [Mass/Vol] 0.57 mg/dL 0.50 - 1.20 mg/dL [facility] GFR/1.73 sq M.predicted CKD-EPI (S/P/Bld) [Vol rate/Area] >90 >=60 mL/min/1.73m 2 [facility] Glucose [Mass/Vol] 107 mg/dL High 70 - 99 mg/dL [facility] Interpretation and review of laboratory results Abnormal [facility] Osmolality Calc [Osmolality] 300 [facility] Potassium [Moles/Vol] 3.9 mmol/L 3.5 - 5.0 mmol/L [facility] Sodium [Moles/Vol] 142 mmol/L 135 - 145 mmol/L [facility] Urea nitrogen [Mass/Vol] 22 mg/dL 7 - 25 mg/dL [facility] Urea nitrogen/Creatinine [Mass ratio] 39 mg/mg [facility] CT HEAD WITHOUT CONTRASTon 0 01-20-2022 CT [...] have reviewed and approved this report. Normal [facility] CT Head WO contraston 2021 RADIOLOGY RADIOLOGY [facility] Radiology Study observation (narrative) [facility] CT Head WO contrastOrdered B y: Leobardo Meraz on 01-20-2022 [facility] Work Phone: IONIZED CALCIUM, WHOLE BLOOD on 01-20-2022 ICA 4.89 mg/dL Normal 4.60-5.30 [facility] Comment on above: Performed By: #### L [id number] #### [facility] (DEFAULT) [address] [address] Calcium.ionized (Bld) [Moles/Vol] 4.89 mg/dL 4.60 - 5.30 mg/dL [facility] Interpretation and review of laboratory results Normal [facility] MAGNESIUMon 01-20-2022 Magnesium [Mass/Vol] 2.1 mg/dL Normal 1.6-2.6 [facility] Comment on above: Performed By: #### I PB, CHM7, MGO #### [facility] (DEFAULT) [address] [address] Magnesium [Mass/Vol] 2.1 mg/dL 1.6 - 2 .6 mg/dL [facility] No Panel Informationon 01-20 Interpretation and review of laboratory results Normal [facility] PHOSPHATE, INORGANICon 01-20 Phosphorous 3.7 mg/dL Normal 2.2-4.6 [facility] Comment on above: Performed By: #### I YAMEL, ANTELMO, MITA #### [facility] (DEFAULT) [address] [place] [address] Phosphate [Mass/Vol] 3.7 mg/dL 2.2 - 4 .6 mg/dL [facility] Portable XR Chest Viewson Radiology Study observation (narrative) [facility] RF videography Hypopharynx a nd Esophagus Views W liquid and paste contrast PO during swallowingon 01-20-2022 RADIOLOGY RADIOLOGY [facility] Radiology Study observation (narrative) [facility] SPEECH MODIFIED BARIUM SWALL OWon 01-20-2022 [facility] XR FLUORO MODIFIED BARIUM SW ALLOW [...] have reviewed and approved this report. Normal [facility] CBC,PLATELETSon 01-19-2022 Hematocrit (Bld) [Volume fraction] 28.9 % Low 34.9-44.3 [facility] Comment on above: Performed By: #### X M #### [facility] (DEFAULT) [address] [address] Hemoglobin (Bld) [Mass/Vol] 8.8 g/dL Low 11.4-15.2 [facility] Comment on above: Performed By: #### X M #### [facility] (DEFAULT) [address] [address] MCV (RBC) [Entitic vol] 88.1 fL Normal 79.6-97.7 [facility] Comment on above: Performed By: #### X M #### [facility] (DEFAULT) [address] [address] Mean Cell Hgb 26.8 pg Normal 25.9-33.9 [facility] Comment on above: Performed By: #### X M #### [facility] (DEFAULT) [address] [address] Mean Cell Hgb Conc 30.4 g/dL Low 31.4-35.9 [facility] Comment on above: Performed By: #### X M #### [facility] (DEFAULT) [address] [address] Platelet mean volume (Bld) [Entitic vol] 9.9 fL Normal 8.5-12.2 [facility] Comment on above: Performed By: #### X M #### [facility] (DEFAULT) [address] [address] Platelets (Bld) [#/Vol] 344 10*3/uL Normal 150-393 [facility] Comment on above: Performed By: #### X M #### [facility] (DEFAULT) [address] [place] [address] RBC (Bld) [#/Vol] 3.28 10*6/uL Low 3.91-5.04 [facility] Comment on above: Performed By: #### X M #### [facility] (DEFAULT) [address] [place] [address] RBC Distribution 17.6 % High 10.8-14.9 [facility] Comment on above: Performed By: #### X M #### [facility] (DEFAULT) [address] [place] [address] WBC (Bld) [#/Vol] 17.29 10*3/uL High 3.99-11.19 [facility] Comment on above: Performed By: #### X M #### [facility] (DEFAULT) [address] [place] [address]73 Erythrocyte distribution width (RBC) [Ratio] 17.6 % High 10.8 - 14.9 % [facility] Hematocrit (Bld) [Volume fraction] 28.9 % Low 34.9 - 44.3 % [facility] Hemoglobin (Bld) [Mass/Vol] 8.8 g/dL Low 11.4 - 15.2 g/dL [facility] Interpretation and review of laboratory results Abnormal [facility] MCH (RBC) [Entitic mass] 26.8 pg 25.9 - 33.9 pg [facility] MCHC (RBC) [Mass/Vol] 30.4 g/dL Low 31.4 - 35.9 g/dL [facility] MCV (RBC) [Entitic vol] 88.1 fL 79.6 - 97.7 fL [facility] Platelet mean volume (Bld) [Entitic vol] 9.9 fL 8.5 - 12.2 fL [facility] Platelets (Bld) [#/Vol] 344 10*3/uL 150 - 393 K/uL [facility] RBC (Bld) [#/Vol] 3.28 10*6/uL Low [facility] WBC (Bld) [#/Vol] 17.29 10*3/uL High 3.99 - 11 .19 K/uL [facility] CHEM 7 (LYTES,BUN,CREA,GLUC) on 01-19-2022 Anion gap [Moles/Vol] 11 mmol/L Normal 7-17 [facility] Comment on above: Performed By: #### X M #### [facility] (DEFAULT) [address] [address] Chloride [Moles/Vol] 102 mmol/L Normal 98-108 [facility] Comment on above: Performed By: #### X M #### [facility] (DEFAULT) [address] [place] [address] CO2 [Moles/Vol] 32 mmol/L High 21-31 [facility] Comment on above: Performed By: #### X M #### [facility] (DEFAULT) [address] [place] [address] Creatinine [Mass/Vol] 0.57 mg/dL Normal 0.50-1.20 [facility] Comment on above: Performed By: #### X M #### [facility] (DEFAULT) [address] [place] [address]37 eGFR, CKD-EPI, Female >90 Normal >=60 [facility] Comment on above: Result Comment: Repo rted eGFR is based on the CKD-EPI 2020 equation using creatinine, age, and sex. Performed By: #### X M #### [facility] (DEFAULT) [address] [place] [address] Glucose [Mass/Vol] 118 mg/dL High 70-99 [facility] Comment on above: Performed By: #### X M #### [facility] (DEFAULT) [address] [place] [address] Osmolality [Osmolality] 300 mosm/kg Normal 278-305 [facility] Comment on above: Performed By: #### X M #### [facility] (DEFAULT) [address] [place] [address] Potassium [Moles/Vol] 3.9 mmol/L Normal 3.5-5.0 [facility] Comment on above: Performed By: #### X M #### [facility] (DEFAULT) [address] [place] [address] Sodium [Moles/Vol] 141 mmol/L Normal 135-145 [facility] Comment on above: Performed By: #### X M #### [facility] (DEFAULT) [address] [place] [address] Urea nitrogen [Mass/Vol] 24 mg/dL Normal 7-25 [facility] Comment on above: Performed By: #### X M #### [facility] (DEFAULT) [address] [place] [address]16 Urea nitrogen/Creatinine [Mass ratio] 42 mg/mg Normal [facility] Comment on above: Performed By: #### X M #### [facility] (DEFAULT) [address] [place] [address] Anion gap [Moles/Vol] 11 mmol/L 7 - 17 mmol/L [facility] Chloride [Moles/Vol] 102 mmol/L 98 - 10 8 mmol/L [facility] CO2 [Moles/Vol] 32 mmol/L High 21 - 31 mmol/L [facility] Creatinine [Mass/Vol] 0.57 mg/dL 0.50 - 1.20 mg/dL [facility] GFR/1.73 sq M.predicted CKD-EPI (S/P/Bld) [Vol rate/Area] >90 >=60 mL/min/1.73m 2 [facility] Glucose [Mass/Vol] 118 mg/dL High 70 - 99 mg/dL [facility] Interpretation and review of laboratory results Abnormal [facility] Osmolality Calc [Osmolality] 300 [facility] Potassium [Moles/Vol] 3.9 mmol/L 3.5 - 5.0 mmol/L [facility] Sodium [Moles/Vol] 141 mmol/L 135 - 145 mmol/L [facility] Urea nitrogen [Mass/Vol] 24 mg/dL 7 - 25 mg/dL [facility] Urea nitrogen/Creatinine [Mass ratio] 42 mg/mg [facility] GLUCOSE POCon 01-19-2022 Glucose [Mass/Vol] 121 mg/dL High 70 - 99 mg/dL [facility] Interpretation and review of laboratory results Abnormal [facility] POC Sample Type CAPBL [facility] IONIZED CALCIUM, WHOLE BLOOD on 01-19-2022 ICA 4.75 mg/dL Normal 4.60-5.30 [facility] Comment on above: Performed By: #### L [id number] #### [facility] (DEFAULT) [address] [place] [address] Calcium.ionized (Bld) [Moles/Vol] 4.75 mg/dL 4.60 - 5.30 mg/dL [facility] Interpretation and review of laboratory results Normal [facility] MAGNESIUMon 01-19-2022 Magnesium [Mass/Vol] 2.1 mg/dL Normal 1.6-2.6 [facility] Comment on above: Performed By: #### X M #### [facility] (DEFAULT) [address] [place] [address] Magnesium [Mass/Vol] 2.1 mg/dL 1.6 - 2 .6 mg/dL [facility] No Panel Informationon 01-19 Interpretation and review of laboratory results Normal [facility] PHOSPHATE, INORGANICon 01-19 Phosphorous 4.4 mg/dL Normal 2.2-4.6 [facility] Comment on above: Performed By: #### X M #### [facility] (DEFAULT) [address] [place] [address] Phosphate [Mass/Vol] 4.4 mg/dL 2.2 - 4 .6 mg/dL [facility] CBC,PLATELETSon 01-18-2022 Hematocrit (Bld) [Volume fraction] 29.6 % Low 34.9-44.3 [facility] Comment on above: Performed By: #### G AS5L #### [facility] (DEFAULT) [address] [place] [address] Hemoglobin (Bld) [Mass/Vol] 9.1 g/dL Low 11.4-15.2 [facility] Comment on above: Performed By: #### G AS5L #### [facility] (DEFAULT) [address] [place] [address]751 MCV (RBC) [Entitic vol] 87.3 fL Normal 79.6-97.7 [facility] Comment on above: Performed By: #### G AS5L #### [facility] (DEFAULT) [address] [place] [address] 28075 Mean Cell Hgb 26.8 pg Normal 25.9-33.9 [facility] Comment on above: Performed By: #### G AS5L #### [facility] (DEFAULT) [address] [place] [address] Mean Cell Hgb Conc 30.7 g/dL Low 31.4-35.9 [facility] Comment on above: Performed By: #### G AS5L #### [facility] (DEFAULT) [address] [place] [address] Platelet mean volume (Bld) [Entitic vol] 9.7 fL Normal 8.5-12.2 [facility] Comment on above: Performed By: #### G AS5L #### [facility] (DEFAULT) [address] [place] [address] Platelets (Bld) [#/Vol] 315 10*3/uL Normal 150-393 [facility] Comment on above: Performed By: #### G AS5L #### [facility] (DEFAULT) [address] [place] [address] 14521 RBC (Bld) [#/Vol] 3.39 10*6/uL Low 3.91-5.04 [facility] Comment on above: Performed By: #### G AS5L #### [facility] (DEFAULT) [address] [place] [address] 12721 RBC Distribution 17.7 % High 10.8-14.9 [facility] Comment on above: Performed By: #### G AS5L #### [facility] (DEFAULT) [address] [place] [address] 86008 WBC (Bld) [#/Vol] 13.95 10*3/uL High 3.99-11.19 [facility] Comment on above: Performed By: #### G AS5L #### [facility] (DEFAULT) [address] [place] [address] 34261 Erythrocyte distribution width (RBC) [Ratio] 17.7 % High 10.8 - 14.9 % [facility] Hematocrit (Bld) [Volume fraction] 29.6 % Low 34.9 - 44.3 % [facility] Hemoglobin (Bld) [Mass/Vol] 9.1 g/dL Low 11.4 - 15.2 g/dL [facility] Interpretation and review of laboratory results Abnormal [facility] MCH (RBC) [Entitic mass] 26.8 pg 25.9 - 33.9 pg [facility] MCHC (RBC) [Mass/Vol] 30.7 g/dL Low 31.4 - 35.9 g/dL [facility] MCV (RBC) [Entitic vol] 87.3 fL 79.6 - 97.7 fL [facility] Platelet mean volume (Bld) [Entitic vol] 9.7 fL 8.5 - 12.2 fL [facility] Platelets (Bld) [#/Vol] 315 10*3/uL 150 - 393 K/uL [facility] RBC (Bld) [#/Vol] 3.39 10*6/uL Low [facility] WBC (Bld) [#/Vol] 13.95 10*3/uL High 3.99 - 11 .19 K/uL [facility] CHEM 7 (LYTES,BUN,CREA,GLUC) on 01-18-2022 Anion gap [Moles/Vol] 13 mmol/L Normal 7-17 [facility] Comment on above: Performed By: #### X M #### [facility] (DEFAULT) [address] [place] [address] 41854 Chloride [Moles/Vol] 102 mmol/L Normal 98-108 [facility] Comment on above: Performed By: #### X M #### [facility] (DEFAULT) [address] [place] [address] 37268 CO2 [Moles/Vol] 28 mmol/L Normal 21-31 [facility] Comment on above: Performed By: #### X M #### [facility] (DEFAULT) [address] [place] [address] 44789 Creatinine [Mass/Vol] 0.56 mg/dL Normal 0.50-1.20 [facility] Comment on above: Performed By: #### X M #### [facility] (DEFAULT) [address] [place] [address] 59562 eGFR, CKD-EPI, Female >90 Normal >=60 [facility] Comment on above: Result Comment: Repo rted eGFR is based on the CKD-EPI 2020 equation using creatinine, age, and sex. Performed By: #### X M #### [facility] (DEFAULT) [address] [place] [address] 65533 Glucose [Mass/Vol] 112 mg/dL High 70-99 [facility] Comment on above: Performed By: #### X M #### [facility] (DEFAULT) [address] [place] [address] Osmolality [Osmolality] 296 mosm/kg Normal 278-305 [facility] Comment on above: Performed By: #### X M #### [facility] (DEFAULT) [address] [place] [address] Potassium [Moles/Vol] 3.9 mmol/L Normal 3.5-5.0 [facility] Comment on above: Performed By: #### X M #### [facility] (DEFAULT) [address] [place] [address] Sodium [Moles/Vol] 139 mmol/L Normal 135-145 [facility] Comment on above: Performed By: #### X M #### [facility] (DEFAULT) [address] [place] [address] Urea nitrogen [Mass/Vol] 25 mg/dL Normal 7-25 [facility] Comment on above: Performed By: #### X M #### [facility] (DEFAULT) [address] [place] [address] Urea nitrogen/Creatinine [Mass ratio] 45 mg/mg Normal [facility] Comment on above: Performed By: #### X M #### [facility] (DEFAULT) [address] [place] [address] 45542 Anion gap [Moles/Vol] 13 mmol/L 7 - 17 mmol/L [facility] Chloride [Moles/Vol] 102 mmol/L 98 - 10 8 mmol/L [facility] CO2 [Moles/Vol] 28 mmol/L 21 - 31 mmol/L [facility] Creatinine [Mass/Vol] 0.56 mg/dL 0.50 - 1.20 mg/dL [facility] GFR/1.73 sq M.predicted CKD-EPI (S/P/Bld) [Vol rate/Area] >90 >=60 mL/min/1.73m 2 [facility] Glucose [Mass/Vol] 112 mg/dL High 70 - 99 mg/dL [facility] Interpretation and review of laboratory results Abnormal [facility] Osmolality Calc [Osmolality] 296 [facility] Potassium [Moles/Vol] 3.9 mmol/L 3.5 - 5.0 mmol/L [facility] Sodium [Moles/Vol] 139 mmol/L 135 - 145 mmol/L [facility] Urea nitrogen [Mass/Vol] 25 mg/dL 7 - 25 mg/dL [facility] Urea nitrogen/Creatinine [Mass ratio] 45 mg/mg [facility] IONIZED CALCIUM, WHOLE BLOOD on 01-18-2022 ICA 4.33 mg/dL Low 4.60-5.30 [facility] Comment on above: Performed By: #### G AS5L #### [facility] (DEFAULT) [address] [place] [address] 18470 IONIZED CALCIUM, WHOLE BLOOD Ordered By: Crys Friedman on 01-18-2022 Calcium.ionized (Bld) [Moles/Vol] 4.33 mg/dL Low 4.60 - 5.30 mg/dL [facility] Interpretation and review of laboratory results Abnormal [facility] MAGNESIUMon 01-18-2022 Magnesium [Mass/Vol] 1.8 mg/dL Normal 1.6-2.6 [facility] Comment on above: Performed By: #### X M #### [facility] (DEFAULT) [address] [place] [address] 51267 Magnesium [Mass/Vol] 1.8 mg/dL 1.6 - 2 .6 mg/dL [facility] No Panel Informationon 01-18 Interpretation and review of laboratory results Normal [facility] PHOSPHATE, INORGANICon 01-18 Phosphorous 3.0 mg/dL Normal 2.2-4.6 [facility] Comment on above: Performed By: #### X M #### [facility] (DEFAULT) [address] [place] [address] 69079 Phosphate [Mass/Vol] 3.0 mg/dL 2.2 - 4 .6 mg/dL [facility] CBC,PLATELETSon 01-17-2022 Hematocrit (Bld) [Volume fraction] 26.7 % Low 34.9-44.3 [facility] Comment on above: Performed By: #### X M #### [facility] (DEFAULT) [address] [place] [address] 14628 Hemoglobin (Bld) [Mass/Vol] 8.5 g/dL Low 11.4-15.2 [facility] Comment on above: Performed By: #### X M #### [facility] (DEFAULT) [address] [place] [address] 14023 MCV (RBC) [Entitic vol] 84.5 fL Normal 79.6-97.7 [facility] Comment on above: Performed By: #### X M #### [facility] (DEFAULT) [address] [place] [address] 98306 Mean Cell Hgb 26.9 pg Normal 25.9-33.9 [facility] Comment on above: Performed By: #### X M #### [facility] (DEFAULT) [address] [place] [address] 49775 Mean Cell Hgb Conc 31.8 g/dL Normal 31.4-35.9 [facility] Comment on above: Performed By: #### X M #### [facility] (DEFAULT) [address] [place] [address] 25518 Platelet mean volume (Bld) [Entitic vol] 10.4 fL Normal 8.5-12.2 [facility] Comment on above: Performed By: #### X M #### [facility] (DEFAULT) [address] [place] [address] 46036 Platelets (Bld) [#/Vol] 277 10*3/uL Normal 150-393 [facility] Comment on above: Performed By: #### X M #### [facility] (DEFAULT) [address] [place] [address] 22315 RBC (Bld) [#/Vol] 3.16 10*6/uL Low 3.91-5.04 [facility] Comment on above: Performed By: #### X M #### [facility] (DEFAULT) [address] [place] [address] 02325 RBC Distribution 17.7 % High 10.8-14.9 [facility] Comment on above: Performed By: #### X M #### [facility] (DEFAULT) [address] [place] [address] 50568 WBC (Bld) [#/Vol] 12.86 10*3/uL High 3.99-11.19 [facility] Comment on above: Performed By: #### X M #### [facility] (DEFAULT) [address] [place] [address] 25848 Erythrocyte distribution width (RBC) [Ratio] 17.7 % High 10.8 - 14.9 % [facility] Hematocrit (Bld) [Volume fraction] 26.7 % Low 34.9 - 44.3 % [facility] Hemoglobin (Bld) [Mass/Vol] 8.5 g/dL Low 11.4 - 15.2 g/dL [facility] Interpretation and review of laboratory results Abnormal [facility] MCH (RBC) [Entitic mass] 26.9 pg 25.9 - 33.9 pg [facility] MCHC (RBC) [Mass/Vol] 31.8 g/dL 31.4 - 35.9 g/dL [facility] MCV (RBC) [Entitic vol] 84.5 fL 79.6 - 97.7 fL [facility] Platelet mean volume (Bld) [Entitic vol] 10.4 fL 8.5 - 12.2 fL [facility] Platelets (Bld) [#/Vol] 277 10*3/uL 150 - 393 K/uL [facility] RBC (Bld) [#/Vol] 3.16 10*6/uL Low [facility] WBC (Bld) [#/Vol] 12.86 10*3/uL High 3.99 - 11 .19 K/uL [facility] CHEM 7 (LYTES,BUN,CREA,GLUC) on 01-17-2022 Anion gap [Moles/Vol] 15 mmol/L Normal 7-17 [facility] Comment on above: Performed By: #### X M #### [facility] (DEFAULT) [address] [place] [address] 23491 Chloride [Moles/Vol] 102 mmol/L Normal 98-108 [facility] Comment on above: Performed By: #### X M #### [facility] (DEFAULT) [address] [place] [address] 85246 CO2 [Moles/Vol] 30 mmol/L Normal 21-31 [facility] Comment on above: Performed By: #### X M #### [facility] (DEFAULT) [address] [place] [address] 03093 Creatinine [Mass/Vol] 0.52 mg/dL Normal 0.50-1.20 [facility] Comment on above: Performed By: #### X M #### [facility] (DEFAULT) [address] [place] [address] 07119 eGFR, CKD-EPI, Female >90 Normal >=60 [facility] Comment on above: Result Comment: Repo rted eGFR is based on the CKD-EPI 2020 equation using creatinine, age, and sex. Performed By: #### X M #### [facility] (DEFAULT) [address] [place] [address] 19169 Glucose [Mass/Vol] 140 mg/dL High 70-99 [facility] Comment on above: Performed By: #### X M #### [facility] (DEFAULT) [address] [place] [address] 11533 Osmolality [Osmolality] 305 mosm/kg Normal 278-305 [facility] Comment on above: Performed By: #### X M #### [facility] (DEFAULT) [address] [place] [address] 66677 Potassium [Moles/Vol] 4.0 mmol/L Normal 3.5-5.0 [facility] Comment on above: Performed By: #### X M #### [facility] (DEFAULT) [address] [place] [address] Sodium [Moles/Vol] 143 mmol/L Normal 135-145 [facility] Comment on above: Performed By: #### X M #### [facility] (DEFAULT) [address] [place] [address] Urea nitrogen [Mass/Vol] 23 mg/dL Normal 7-25 [facility] Comment on above: Performed By: #### X M #### [facility] (DEFAULT) [address] [place] [address] Urea nitrogen/Creatinine [Mass ratio] 44 mg/mg Normal [facility] Comment on above: Performed By: #### X M #### [facility] (DEFAULT) [address] [place] [address] Anion gap [Moles/Vol] 15 mmol/L 7 - 17 mmol/L [facility] Chloride [Moles/Vol] 102 mmol/L 98 - 10 8 mmol/L [facility] CO2 [Moles/Vol] 30 mmol/L 21 - 31 mmol/L [facility] Creatinine [Mass/Vol] 0.52 mg/dL 0.50 - 1.20 mg/dL [facility] GFR/1.73 sq M.predicted CKD-EPI (S/P/Bld) [Vol rate/Area] >90 >=60 mL/min/1.73m 2 [facility] Glucose [Mass/Vol] 140 mg/dL High 70 - 99 mg/dL [facility] Osmolality Calc [Osmolality] 305 [facility] Potassium [Moles/Vol] 4.0 mmol/L 3.5 - 5.0 mmol/L [facility] Sodium [Moles/Vol] 143 mmol/L 135 - 145 mmol/L [facility] Urea nitrogen [Mass/Vol] 23 mg/dL 7 - 25 mg/dL [facility] Urea nitrogen/Creatinine [Mass ratio] 44 mg/mg [facility] CT HEAD WITHOUT CONTRASTon 0 01-17-2022 CT [...] have reviewed and approved this report. Normal [facility] CT Head WO contraston 2021 RADIOLOGY RADIOLOGY [facility] Radiology Study observation (narrative) [facility] CT Head WO contrastOrdered B y: Maureen Whitehead on 01-17-2022 [facility] Work Phone: FOLATE, SERUMon 01-17-2022 Folate 14.39 ng/mL Normal >5.38 [facility] Comment on above: Performed By: #### X M #### [facility] (DEFAULT) [address] [address] Folate [Mass/Vol] 14.39 ng/mL >5.38 [facility] IONIZED CALCIUM, WHOLE BLOOD on 01-17-2022 ICA 4.55 mg/dL Low 4.60-5.30 [facility] Comment on above: Performed By: #### I PB, CHM7, MGO #### [facility] (DEFAULT) [address] [address] Calcium.ionized (Bld) [Moles/Vol] 4.55 mg/dL Low 4.60 - 5.30 mg/dL [facility] Interpretation and review of laboratory results Abnormal [facility] IRON/IRON BINDING/TRANSFERRI Non 01-17-2022 Iron [Mass/Vol] 38 ug/dL Low 40-174 [facility] Comment on above: Performed By: #### X M #### [facility] (DEFAULT) [address] [place] [address] 44869 Iron Saturation 18 % Low 20-55 [facility] Comment on above: Performed By: #### X M #### [facility] (DEFAULT) [address] [place] [address] 26724 Total Iron Binding Capacity 215 mcg/dL Low 250-425 [facility] Comment on above: Performed By: #### X M #### [facility] (DEFAULT) [address] [place] [address] 68152 Transferrin [Mass/Vol] 172 mg/dL Low 200-400 [facility] Comment on above: Performed By: #### X M #### [facility] (DEFAULT) [address] [place] [address] Iron [Mass/Vol] 38 ug/dL Low [facility] Iron binding capacity [Mass/Vol] 215 Low [facility] Iron saturation [Mass fraction] 18 % Low 20 - 55 % [facility] Transferrin [Mass/Vol] 172 mg/dL Low 200 - 400 mg/dL [facility] MAGNESIUMon 01-17-2022 Magnesium [Mass/Vol] 1.8 mg/dL Normal 1.6-2.6 [facility] Comment on above: Performed By: #### X M #### [facility] (DEFAULT) [address] [place] [address] 84057 Magnesium [Mass/Vol] 1.8 mg/dL 1.6 - 2 .6 mg/dL [facility] No Panel Informationon 01-17 Interpretation and review of laboratory results Abnormal [facility] Interpretation and review of laboratory results Normal [facility] PHOSPHATE, INORGANICon 01-17 Phosphorous 4.0 mg/dL Normal 2.2-4.6 [facility] Comment on above: Performed By: #### X M #### [facility] (DEFAULT) [address] [place] [address] 69661 Phosphate [Mass/Vol] 4.0 mg/dL 2.2 - 4 .6 mg/dL [facility] SYPHILIS AB W/REFLEX RPRon 0 01-17-2022 Syphilis IgG/IGM Total Non-Reactive Normal Non Reactiv e [facility] Comment on above: Performed By: #### X M #### [facility] (DEFAULT) [address] [place] [address] 07908 T. pallidum Ab Ql (S)Ordered By: Bárbara Vyas on 01-17-2022 Interpretation and review of laboratory results Normal [facility] T. pallidum IgG Ql (S) Non-Reactive Non Reactiv e [facility] T4 FREEon 01-17-2022 Free T4 [Mass/Vol] 1.02 ng/dL Normal 0.89-1.76 [facility] Comment on above: Performed By: #### X M #### [facility] (DEFAULT) [address] [address] Free T4 [Mass/Vol] 1.02 ng/dL 0.89 - 1. 76 ng/dL [facility] Interpretation and review of laboratory results Normal [facility] TSH W/FT4 REFLEXon TSH 6.402 uIU/mL High 0.550-4.780 [facility] Comment on above: Performed By: #### X M #### [facility] (DEFAULT) [address] [address] Interpretation and review of laboratory results Abnormal [facility] TSH Qn 6.402 m[IU]/L High [facility] US.doppler Upper extremity v ein - rightOrdered By: Kaylee Moraes on 01-17-2022 [facility] Work Phone: CBC,PLATELETSon 01-16-2022 Hematocrit (Bld) [Volume fraction] 26.1 % Low 34.9-44.3 [facility] Comment on above: Performed By: #### I SCOTT MONTESINOS7, MGO #### [facility] (DEFAULT) [address] [address] Hemoglobin (Bld) [Mass/Vol] 8.3 g/dL Low 11.4-15.2 [facility] Comment on above: Performed By: #### I SCOTT MONTESINOS7, MGO #### [facility] (DEFAULT) [address] [place] [address] 79346 MCV (RBC) [Entitic vol] 85.3 fL Normal 79.6-97.7 [facility] Comment on above: Performed By: #### I PB, CHM7, MGO #### [facility] (DEFAULT) [address] [place] [address] 72314 Mean Cell Hgb 27.1 pg Normal 25.9-33.9 [facility] Comment on above: Performed By: #### I PB, CHM7, MGO #### [facility] (DEFAULT) [address] [place] [address] 56448 Mean Cell Hgb Conc 31.8 g/dL Normal 31.4-35.9 [facility] Comment on above: Performed By: #### I PB, CHM7, MGO #### [facility] (DEFAULT) [address] [place] [address] 67037 Platelet mean volume (Bld) [Entitic vol] 10.1 fL Normal 8.5-12.2 [facility] Comment on above: Performed By: #### I PB, CHM7, MGO #### [facility] (DEFAULT) [address] [place] [address] 26456 Platelets (Bld) [#/Vol] 284 10*3/uL Normal 150-393 [facility] Comment on above: Performed By: #### I PB, CHM7, MGO #### [facility] (DEFAULT) [address] [place] [address] 52881 RBC (Bld) [#/Vol] 3.06 10*6/uL Low 3.91-5.04 [facility] Comment on above: Performed By: #### I PB, CHM7, MGO #### [facility] (DEFAULT) [address] [place] [address] 61008 RBC Distribution 18.7 % High 10.8-14.9 [facility] Comment on above: Performed By: #### I PB, CHM7, MGO #### [facility] (DEFAULT) [address] [place] [address] WBC (Bld) [#/Vol] 11.32 10*3/uL High 3.99-11.19 [facility] Comment on above: Performed By: #### I PB, CHM7, MGO #### [facility] (DEFAULT) [address] [place] [address] Erythrocyte distribution width (RBC) [Ratio] 18.7 % High 10.8 - 14.9 % [facility] Hematocrit (Bld) [Volume fraction] 26.1 % Low 34.9 - 44.3 % [facility] Hemoglobin (Bld) [Mass/Vol] 8.3 g/dL Low 11.4 - 15.2 g/dL [facility] Interpretation and review of laboratory results Abnormal [facility] MCH (RBC) [Entitic mass] 27.1 pg 25.9 - 33.9 pg [facility] MCHC (RBC) [Mass/Vol] 31.8 g/dL 31.4 - 35.9 g/dL [facility] MCV (RBC) [Entitic vol] 85.3 fL 79.6 - 97.7 fL [facility] Platelet mean volume (Bld) [Entitic vol] 10.1 fL 8.5 - 12.2 fL [facility] Platelets (Bld) [#/Vol] 284 10*3/uL 150 - 393 K/uL [facility] RBC (Bld) [#/Vol] 3.06 10*6/uL Low [facility] WBC (Bld) [#/Vol] 11.32 10*3/uL High 3.99 - 11 .19 K/uL [facility] CHEM 7 (LYTES,BUN,CREA,GLUC) on 01-16-2022 Anion gap [Moles/Vol] 13 mmol/L Normal 7-17 [facility] Comment on above: Performed By: #### X M #### [facility] (DEFAULT) [address] [place] [address] 13584 Chloride [Moles/Vol] 103 mmol/L Normal 98-108 [facility] Comment on above: Performed By: #### X M #### [facility] (DEFAULT) [address] [place] [address] 65755 CO2 [Moles/Vol] 31 mmol/L Normal 21-31 [facility] Comment on above: Performed By: #### X M #### [facility] (DEFAULT) [address] [place] [address] 06338 Creatinine [Mass/Vol] 0.47 mg/dL Low 0.50-1.20 [facility] Comment on above: Performed By: #### X M #### [facility] (DEFAULT) [address] [place] [address] 83579 eGFR, CKD-EPI, Female >90 Normal >=60 [facility] Comment on above: Result Comment: Repo rted eGFR is based on the CKD-EPI 2020 equation using creatinine, age, and sex. Performed By: #### X M #### [facility] (DEFAULT) [address] [place] [address] 70236 Glucose [Mass/Vol] 127 mg/dL High 70-99 [facility] Comment on above: Performed By: #### X M #### [facility] (DEFAULT) [address] [place] [address] 46782 Osmolality [Osmolality] 303 mosm/kg Normal 278-305 [facility] Comment on above: Performed By: #### X M #### [facility] (DEFAULT) [address] [place] [address] 88083 Potassium [Moles/Vol] 4.0 mmol/L Normal 3.5-5.0 [facility] Comment on above: Performed By: #### X M #### [facility] (DEFAULT) [address] [place] [address] 08894 Sodium [Moles/Vol] 143 mmol/L Normal 135-145 [facility] Comment on above: Performed By: #### X M #### [facility] (DEFAULT) [address] [place] [address] Urea nitrogen [Mass/Vol] 21 mg/dL Normal 7-25 [facility] Comment on above: Performed By: #### X M #### [facility] (DEFAULT) [address] [place] [address] Urea nitrogen/Creatinine [Mass ratio] 45 mg/mg Normal [facility] Comment on above: Performed By: #### X M #### [facility] (DEFAULT) [address] [place] [address] 88440 Anion gap [Moles/Vol] 13 mmol/L 7 - 17 mmol/L [facility] Chloride [Moles/Vol] 103 mmol/L 98 - 10 8 mmol/L [facility] CO2 [Moles/Vol] 31 mmol/L 21 - 31 mmol/L [facility] Creatinine [Mass/Vol] 0.47 mg/dL Low 0.50 - 1.20 mg/dL [facility] GFR/1.73 sq M.predicted CKD-EPI (S/P/Bld) [Vol rate/Area] >90 >=60 mL/min/1.73m 2 [facility] Glucose [Mass/Vol] 127 mg/dL High 70 - 99 mg/dL [facility] Interpretation and review of laboratory results Abnormal [facility] Osmolality Calc [Osmolality] 303 [facility] Potassium [Moles/Vol] 4.0 mmol/L 3.5 - 5.0 mmol/L [facility] Sodium [Moles/Vol] 143 mmol/L 135 - 145 mmol/L [facility] Urea nitrogen [Mass/Vol] 21 mg/dL 7 - 25 mg/dL [facility] Urea nitrogen/Creatinine [Mass ratio] 45 [facility] AND 2 ANTIBODIESOrdere d By: Julia Laird on 01-16-2022 HIV 1+2 Ab+HIV1 p24 Ag IA Ql Non-Reactive Non Reactive [facility] HIV 1 AND 2 ANTIBODIESon HIV-1/HIV-2 Ab With p24 Antigen Non-Reactive Normal Non Reactive [facility] Comment on above: Performed By: #### T YPEC #### [facility] (DEFAULT) [address] [place] [address] 78588 HIV 1+2 Ab+HIV1 p24 Ag IA Ql Ordered By: Julia Laird on 01-16-2022 Interpretation and review of laboratory results Normal [facility] IONIZED CALCIUM, WHOLE BLOOD on 01-16-2022 ICA 4.32 mg/dL Low 4.60-5.30 [facility] Comment on above: Performed By: #### X M #### [facility] (DEFAULT) [address] [place] [id number] IONIZED CALCIUM, WHOLE BLOOD Ordered By: Emily Nayak on 01-16-2022 Calcium.ionized (Bld) [Moles/Vol] 4.32 mg/dL Low 4.60 - 5.30 mg/dL [facility] Interpretation and review of laboratory results Abnormal [facility] MAGNESIUMon 01-16-2022 Magnesium [Mass/Vol] 1.8 mg/dL Normal 1.6-2.6 [facility] Comment on above: Performed By: #### X M #### [facility] (DEFAULT) [address] [place] [address]206 Magnesium [Mass/Vol] 1.8 mg/dL 1.6 - 2 .6 mg/dL [facility] No Panel Informationon 01-16 Interpretation and review of laboratory results Normal [facility] PHOSPHATE, INORGANICon 01-16 Phosphorous 3.5 mg/dL Normal 2.2-4.6 [facility] Comment on above: Performed By: #### X M #### [facility] (DEFAULT) [address] [address] Phosphate [Mass/Vol] 3.5 mg/dL 2.2 - 4 .6 mg/dL [facility] US.doppler Upper extremity v ein - righton 01-16-2022 Radiology Study observation (narrative) [facility] VITAMIN B12on 01-16-2022 Cobalamin (Vitamin B12) [Mass/Vol] 877 pg/mL 211 - 911 pg/mL [facility] Interpretation and review of laboratory results Normal [facility] Cobalamin (Vitamin B12) [Mass/Vol] 877 pg/mL Normal 211-911 [facility] Comment on above: Result Comment: Test ing of Methylmalonic Acid and Intrinsic Factor Blocking Antibody are recommended if clinical suspicion for pernicious anemia due to B12 deficiency is high for patients with intermediate B12 levels (211 to 400 pg/mL) to rule out spurious heterophile antibodies. Performed By: #### X M #### [facility] (DEFAULT) [address] [address] CBC,PLATELETSon 01-15-2022 Hematocrit (Bld) [Volume fraction] 22.9 % Low 34.9-44.3 [facility] Comment on above: Performed By: #### I PB, CHM7, MGO #### [facility] (DEFAULT) [address] [place] [address] Hemoglobin (Bld) [Mass/Vol] 7.0 g/dL Low 11.4-15.2 [facility] Comment on above: Performed By: #### I PB, CHM7, MGO #### [facility] (DEFAULT) [address] [address] MCV (RBC) [Entitic vol] 90.9 fL Normal 79.6-97.7 [facility] Comment on above: Performed By: #### I PB, CHM7, MGO #### [facility] (DEFAULT) [address] [address] Mean Cell Hgb 27.8 pg Normal 25.9-33.9 [facility] Comment on above: Performed By: #### I PB, CHM7, MGO #### [facility] (DEFAULT) [address] [address] Mean Cell Hgb Conc 30.6 g/dL Low 31.4-35.9 [facility] Comment on above: Performed By: #### I PB, CHM7, MGO #### [facility] (DEFAULT) [address] [place] [address] Platelet mean volume (Bld) [Entitic vol] 10.2 fL Normal 8.5-12.2 [facility] Comment on above: Performed By: #### I PB, CHM7, MGO #### [facility] (DEFAULT) [address] [address] Platelets (Bld) [#/Vol] 245 10*3/uL Normal 150-393 [facility] Comment on above: Performed By: #### I PB, CHM7, MGO #### [facility] (DEFAULT) [address] [address] RBC (Bld) [#/Vol] 2.52 10*6/uL Low 3.91-5.04 [facility] Comment on above: Performed By: #### I PB, CHM7, MGO #### [facility] (DEFAULT) [address] [address] RBC Distribution 15.6 % High 10.8-14.9 [facility] Comment on above: Performed By: #### I PB, CHM7, MGO #### [facility] (DEFAULT) [address] [address] WBC (Bld) [#/Vol] 10.82 10*3/uL Normal 3.99-11.19 [facility] Comment on above: Performed By: #### I PB, CHM7, MGO #### [facility] (DEFAULT) [address] [place] [address] Erythrocyte distribution width (RBC) [Ratio] 15.6 % High 10.8 - 14.9 % [facility] Hematocrit (Bld) [Volume fraction] 22.9 % Low 34.9 - 44.3 % [facility] Hemoglobin (Bld) [Mass/Vol] 7.0 g/dL Low 11.4 - 15.2 g/dL [facility] Interpretation and review of laboratory results Abnormal [facility] MCH (RBC) [Entitic mass] 27.8 pg 25.9 - 33.9 pg [facility] MCHC (RBC) [Mass/Vol] 30.6 g/dL Low 31.4 - 35.9 g/dL [facility] MCV (RBC) [Entitic vol] 90.9 fL 79.6 - 97.7 fL [facility] Platelet mean volume (Bld) [Entitic vol] 10.2 fL 8.5 - 12.2 fL [facility] Platelets (Bld) [#/Vol] 245 10*3/uL 150 - 393 K/uL [facility] RBC (Bld) [#/Vol] 2.52 10*6/uL Low [facility] WBC (Bld) [#/Vol] 10.82 10*3/uL 3.99 - 11 .19 K/uL [facility] CHEM 7 (LYTES,BUN,CREA,GLUC) on 01-15-2022 Anion gap [Moles/Vol] 10 mmol/L Normal 7-17 [facility] Comment on above: Performed By: #### G AS5L #### [facility] (DEFAULT) [address] [place] [address] Chloride [Moles/Vol] 102 mmol/L Normal 98-108 [facility] Comment on above: Performed By: #### G AS5L #### [facility] (DEFAULT) [address] [place] [address] CO2 [Moles/Vol] 35 mmol/L High 21-31 [facility] Comment on above: Performed By: #### G AS5L #### [facility] (DEFAULT) [address] [place] [address] Creatinine [Mass/Vol] 0.59 mg/dL Normal 0.50-1.20 [facility] Comment on above: Performed By: #### G AS5L #### [facility] (DEFAULT) [address] [place] [address] eGFR, CKD-EPI, Female >90 Normal >=60 [facility] Comment on above: Result Comment: Repo rted eGFR is based on the CKD-EPI 2020 equation using creatinine, age, and sex. Performed By: #### G AS5L #### [facility] (DEFAULT) [address] [place] [address] Glucose [Mass/Vol] 130 mg/dL High 70-99 [facility] Comment on above: Performed By: #### G AS5L #### [facility] (DEFAULT) [address] [place] [address] Osmolality [Osmolality] 304 mosm/kg Normal 278-305 [facility] Comment on above: Performed By: #### G AS5L #### [facility] (DEFAULT) [address] [place] [address] Potassium [Moles/Vol] 4.1 mmol/L Normal 3.5-5.0 [facility] Comment on above: Performed By: #### G AS5L #### [facility] (DEFAULT) [address] [place] [address] Sodium [Moles/Vol] 143 mmol/L Normal 135-145 [facility] Comment on above: Performed By: #### G AS5L #### [facility] (DEFAULT) [address] [place] [address] Urea nitrogen [Mass/Vol] 23 mg/dL Normal 7-25 [facility] Comment on above: Performed By: #### G AS5L #### [facility] (DEFAULT) [address] [place] [address] Urea nitrogen/Creatinine [Mass ratio] 39 mg/mg Normal [facility] Comment on above: Performed By: #### G AS5L #### [facility] (DEFAULT) [address] [place] [address] Anion gap [Moles/Vol] 10 mmol/L 7 - 17 mmol/L [facility] Chloride [Moles/Vol] 102 mmol/L 98 - 10 8 mmol/L [facility] CO2 [Moles/Vol] 35 mmol/L High 21 - 31 mmol/L [facility] Creatinine [Mass/Vol] 0.59 mg/dL 0.50 - 1.20 mg/dL [facility] GFR/1.73 sq M.predicted CKD-EPI (S/P/Bld) [Vol rate/Area] >90 >=60 mL/min/1.73m 2 [facility] Glucose [Mass/Vol] 130 mg/dL High 70 - 99 mg/dL [facility] Interpretation and review of laboratory results Abnormal [facility] Osmolality Calc [Osmolality] 304 [facility] Potassium [Moles/Vol] 4.1 mmol/L 3.5 - 5.0 mmol/L [facility] Sodium [Moles/Vol] 143 mmol/L 135 - 145 mmol/L [facility] Urea nitrogen [Mass/Vol] 23 mg/dL 7 - 25 mg/dL [facility] Urea nitrogen/Creatinine [Mass ratio] 39 mg/mg [facility] HEMOGLOBIN & HEMATOCRITon Hematocrit (Bld) [Volume fraction] 27.7 % Low 34.9-44.3 [facility] Comment on above: Performed By: #### I PB, CHM7, MGO #### [facility] (DEFAULT) [address] [place] [address] Hemoglobin (Bld) [Mass/Vol] 8.5 g/dL Low 11.4-15.2 [facility] Comment on above: Performed By: #### I PB, CHM7, MGO #### [facility] (DEFAULT) [address] [place] [address] Hematocrit (Bld) [Volume fraction] 27.7 % Low 34.9 - 44.3 % [facility] Hemoglobin (Bld) [Mass/Vol] 8.5 g/dL Low 11.4 - 15.2 g/dL [facility] Interpretation and review of laboratory results Abnormal [facility] IONIZED CALCIUM, WHOLE BLOOD Ordered By: Kacy Pascal on 01-15-2022 Calcium.ionized (Bld) [Moles/Vol] 4.64 mg/dL 4.60 - 5.30 mg/dL [facility] Interpretation and review of laboratory results Normal [facility] IONIZED CALCIUM, WHOLE BLOOD on 01-15-2022 ICA 4.64 mg/dL Normal 4.60-5.30 [facility] Comment on above: Performed By: #### T YPEC #### [facility] (DEFAULT) [address] [place] [address] MAGNESIUMon 01-15-2022 Magnesium [Mass/Vol] 1.9 mg/dL Normal 1.6-2.6 [facility] Comment on above: Performed By: #### G AS5L #### [facility] (DEFAULT) [address] [place] [address] Magnesium [Mass/Vol] 1.9 mg/dL 1.6 - 2 .6 mg/dL [facility] No Panel Informationon 01-15 [facility] Interpretation and review of laboratory results Normal [facility] PHOSPHATE, INORGANICon 01-15 Phosphorous 3.3 mg/dL Normal 2.2-4.6 [facility] Comment on above: Performed By: #### G AS5L #### [facility] (DEFAULT) [address] [place] [address] Phosphate [Mass/Vol] 3.3 mg/dL 2.2 - 4 .6 mg/dL [facility] PREPARE TO TRANSFUSE RED BLO OD CELLSon 01-15-2022 ABO/RH(D) TYPE Positive [facility] BLOOD COMPONENT TYPE Red Cells, Leukoreduced [facility] EXPIRATION DATE [facility] Product ABO/RH(D) Positive [facility] Product ABO/RH(D) NUMBER [id number] [facility] PRODUCT CODE [id number] [facility] UNIT NUMBER [id number] [facility] UNIT STATUS transfused [facility] TYPE AND SCREENon 01-15-2022 ABO/RH(D) TYPE Positive Normal [facility] Comment on above: Result Comment: @ 09:03 by AB1: Performed By: #### X M #### [facility] (DEFAULT) [address] [address] ABO/RH(D) TYPE Positive [facility] Bacteria identified Cx Nom ( Bld)on 01-14-2022 Bacteria identified Cx Nom (Unsp spec) NO GROWTH DAY 5 OF 5 [facility] Bacteria identified Cx Nom (Unsp spec) NO GROWTH DAY 5 OF 5 [facility] CBC,PLATELETSon 01-14-2022 Hematocrit (Bld) [Volume fraction] 24.0 % Low 34.9-44.3 [facility] Comment on above: Performed By: #### X M #### [facility] (DEFAULT) [address] [address] Hemoglobin (Bld) [Mass/Vol] 7.1 g/dL Low 11.4-15.2 [facility] Comment on above: Performed By: #### X M #### [facility] (DEFAULT) [address] [address] MCV (RBC) [Entitic vol] 92.7 fL Normal 79.6-97.7 [facility] Comment on above: Performed By: #### X M #### [facility] (DEFAULT) [address] [address] Mean Cell Hgb 27.4 pg Normal 25.9-33.9 [facility] Comment on above: Performed By: #### X M #### [facility] (DEFAULT) [address] [address] Mean Cell Hgb Conc 29.6 g/dL Low 31.4-35.9 [facility] Comment on above: Performed By: #### X M #### [facility] (DEFAULT) [address] [address] Platelet mean volume (Bld) [Entitic vol] 10.2 fL Normal 8.5-12.2 [facility] Comment on above: Performed By: #### X M #### [facility] (DEFAULT) [address] [address] Platelets (Bld) [#/Vol] 224 10*3/uL Normal 150-393 [facility] Comment on above: Performed By: #### X M #### [facility] (DEFAULT) [address] [address] RBC (Bld) [#/Vol] 2.59 10*6/uL Low 3.91-5.04 [facility] Comment on above: Performed By: #### X M #### [facility] (DEFAULT) [address] [address] RBC Distribution 15.2 % High 10.8-14.9 [facility] Comment on above: Performed By: #### X M #### [facility] (DEFAULT) [address] [address] WBC (Bld) [#/Vol] 10.06 10*3/uL Normal 3.99-11.19 [facility] Comment on above: Performed By: #### X M #### [facility] (DEFAULT) [address] [place] [address] Erythrocyte distribution width (RBC) [Ratio] 15.2 % High 10.8 - 14.9 % [facility] Hematocrit (Bld) [Volume fraction] 24.0 % Low 34.9 - 44.3 % [facility] Hemoglobin (Bld) [Mass/Vol] 7.1 g/dL Low 11.4 - 15.2 g/dL [facility] Interpretation and review of laboratory results Abnormal [facility] MCH (RBC) [Entitic mass] 27.4 pg 25.9 - 33.9 pg [facility] MCHC (RBC) [Mass/Vol] 29.6 g/dL Low 31.4 - 35.9 g/dL [facility] MCV (RBC) [Entitic vol] 92.7 fL 79.6 - 97.7 fL [facility] Platelet mean volume (Bld) [Entitic vol] 10.2 fL 8.5 - 12.2 fL [facility] Platelets (Bld) [#/Vol] 224 10*3/uL 150 - 393 K/uL [facility] RBC (Bld) [#/Vol] 2.59 10*6/uL Low [facility] WBC (Bld) [#/Vol] 10.06 10*3/uL 3.99 - 11 .19 K/uL [facility] CHEM 7 (LYTES,BUN,CREA,GLUC) on 01-14-2022 Anion gap [Moles/Vol] 9 mmol/L Normal 7-17 [facility] Comment on above: Performed By: #### X M #### [facility] (DEFAULT) [address] [place] [address] Chloride [Moles/Vol] 103 mmol/L Normal 98-108 [facility] Comment on above: Performed By: #### X M #### [facility] (DEFAULT) [address] [place] [address] CO2 [Moles/Vol] 37 mmol/L High 21-31 [facility] Comment on above: Performed By: #### X M #### [facility] (DEFAULT) [address] [place] [address] Creatinine [Mass/Vol] 0.57 mg/dL Normal 0.50-1.20 [facility] Comment on above: Performed By: #### X M #### [facility] (DEFAULT) [address] [place] [address] eGFR, CKD-EPI, Female >90 Normal >=60 [facility] Comment on above: Result Comment: Repo rted eGFR is based on the CKD-EPI 2020 equation using creatinine, age, and sex. Performed By: #### X M #### [facility] (DEFAULT) [address] [place] [address] Glucose [Mass/Vol] 97 mg/dL Normal 70-99 [facility] Comment on above: Performed By: #### X M #### [facility] (DEFAULT) [address] [place] [address] Osmolality [Osmolality] 306 mosm/kg High 278-305 [facility] Comment on above: Performed By: #### X M #### [facility] (DEFAULT) [address] [place] [address] Potassium [Moles/Vol] 4.2 mmol/L Normal 3.5-5.0 [facility] Comment on above: Performed By: #### X M #### [facility] (DEFAULT) [address] [place] [address] Sodium [Moles/Vol] 145 mmol/L Normal 135-145 [facility] Comment on above: Performed By: #### X M #### [facility] (DEFAULT) [address] [place] [address] Urea nitrogen [Mass/Vol] 22 mg/dL Normal 7-25 [facility] Comment on above: Performed By: #### X M #### [facility] (DEFAULT) [address] [place] [address] Urea nitrogen/Creatinine [Mass ratio] 39 mg/mg Normal [facility] Comment on above: Performed By: #### X M #### [facility] (DEFAULT) [address] [place] [address] Anion gap [Moles/Vol] 9 mmol/L 7 - 17 mmol/L [facility] Chloride [Moles/Vol] 103 mmol/L 98 - 10 8 mmol/L [facility] CO2 [Moles/Vol] 37 mmol/L High 21 - 31 mmol/L [facility] Creatinine [Mass/Vol] 0.57 mg/dL 0.50 - 1.20 mg/dL [facility] GFR/1.73 sq M.predicted CKD-EPI (S/P/Bld) [Vol rate/Area] >90 >=60 mL/min/1.73m 2 [facility] Glucose [Mass/Vol] 97 mg/dL 70 - 99 mg/dL [facility] Interpretation and review of laboratory results Abnormal [facility] Osmolality Calc [Osmolality] 306 High [facility] Potassium [Moles/Vol] 4.2 mmol/L 3.5 - 5.0 mmol/L [facility] Sodium [Moles/Vol] 145 mmol/L 135 - 145 mmol/L [facility] Urea nitrogen [Mass/Vol] 22 mg/dL 7 - 25 mg/dL [facility] Urea nitrogen/Creatinine [Mass ratio] 39 mg/mg [facility] GLUCOSE POCon 01-14-2022 Glucose [Mass/Vol] 118 mg/dL High 70 - 99 mg/dL [facility] Glucose [Mass/Vol] 124 mg/dL High 70 - 99 mg/dL [facility] Glucose [Mass/Vol] 111 mg/dL High 70 - 99 mg/dL [facility] Glucose [Mass/Vol] 129 mg/dL High 70 - 99 mg/dL [facility] Glucose [Mass/Vol] 116 mg/dL High 70 - 99 mg/dL [facility] IONIZED CALCIUM, WHOLE BLOOD on 01-14-2022 ICA 4.49 mg/dL Low 4.60-5.30 [facility] Comment on above: Performed By: #### I PB, CHM7, MGO #### [facility] (DEFAULT) [address] [place] [address] IONIZED CALCIUM, WHOLE BLOOD Ordered By: Adriano Argueta on 01-14-2022 Calcium.ionized (Bld) [Moles/Vol] 4.49 mg/dL Low 4.60 - 5.30 mg/dL [facility] Interpretation and review of laboratory results Abnormal [facility] MAGNESIUMon 01-14-2022 Magnesium [Mass/Vol] 1.9 mg/dL Normal 1.6-2.6 [facility] Comment on above: Performed By: #### X M #### [facility] (DEFAULT) [address] [place] [address] Magnesium [Mass/Vol] 1.9 mg/dL 1.6 - 2 .6 mg/dL [facility] No Panel Informationon 01-14 Interpretation and review of laboratory results Abnormal [facility] POC Sample Type CAPBL [facility] Interpretation and review of laboratory results Abnormal [facility] POC Sample Type CAPBL [facility] Interpretation and review of laboratory results Normal [facility] PHOSPHATE, INORGANICon 01-14 Phosphorous 3.5 mg/dL Normal 2.2-4.6 [facility] Comment on above: Performed By: #### X M #### [facility] (DEFAULT) [address] [place] [address] Phosphate [Mass/Vol] 3.5 mg/dL 2.2 - 4 .6 mg/dL [facility] CBC,PLATELETSon 01-13-2022 Hematocrit (Bld) [Volume fraction] 27.6 % Low 34.9-44.3 [facility] Comment on above: Performed By: #### I PB, CHM7, MGO #### [facility] (DEFAULT) [address] [place] [address] Hemoglobin (Bld) [Mass/Vol] 8.1 g/dL Low 11.4-15.2 [facility] Comment on above: Performed By: #### I PB, CHM7, MGO #### [facility] (DEFAULT) [address] [place] [address] MCV (RBC) [Entitic vol] 94.2 fL Normal 79.6-97.7 [facility] Comment on above: Performed By: #### I PB, CHM7, MGO #### [facility] (DEFAULT) [address] [place] [address] Mean Cell Hgb 27.6 pg Normal 25.9-33.9 [facility] Comment on above: Performed By: #### I PB, CHM7, MGO #### [facility] (DEFAULT) [address] [place] [address] Mean Cell Hgb Conc 29.3 g/dL Low 31.4-35.9 [facility] Comment on above: Performed By: #### I PB, CHM7, MGO #### [facility] (DEFAULT) [address] [place] [address] Platelet mean volume (Bld) [Entitic vol] 10.3 fL Normal 8.5-12.2 [facility] Comment on above: Performed By: #### I PB, CHM7, MGO #### [facility] (DEFAULT) [address] [place] [address] Platelets (Bld) [#/Vol] 237 10*3/uL Normal 150-393 [facility] Comment on above: Performed By: #### I PB, CHM7, MGO #### [facility] (DEFAULT) [address] [place] [address] RBC (Bld) [#/Vol] 2.93 10*6/uL Low 3.91-5.04 [facility] Comment on above: Performed By: #### I PB, CHM7, MGO #### [facility] (DEFAULT) [address] [place] [address] RBC Distribution 15.3 % High 10.8-14.9 [facility] Comment on above: Performed By: #### I PB, CHM7, MGO #### [facility] (DEFAULT) [address] [place] [address] WBC (Bld) [#/Vol] 10.20 10*3/uL Normal 3.99-11.19 [facility] Comment on above: Performed By: #### I PB, CHM7, MGO #### [facility] (DEFAULT) [address] [place] [address] Erythrocyte distribution width (RBC) [Ratio] 15.3 % High 10.8 - 14.9 % [facility] Hematocrit (Bld) [Volume fraction] 27.6 % Low 34.9 - 44.3 % [facility] Hemoglobin (Bld) [Mass/Vol] 8.1 g/dL Low 11.4 - 15.2 g/dL [facility] Interpretation and review of laboratory results Abnormal [facility] MCH (RBC) [Entitic mass] 27.6 pg 25.9 - 33.9 pg [facility] MCHC (RBC) [Mass/Vol] 29.3 g/dL Low 31.4 - 35.9 g/dL [facility] MCV (RBC) [Entitic vol] 94.2 fL 79.6 - 97.7 fL [facility] Platelet mean volume (Bld) [Entitic vol] 10.3 fL 8.5 - 12.2 fL [facility] Platelets (Bld) [#/Vol] 237 10*3/uL 150 - 393 K/uL [facility] RBC (Bld) [#/Vol] 2.93 10*6/uL Low [facility] WBC (Bld) [#/Vol] 10.20 10*3/uL 3.99 - 11 .19 K/uL [facility] CHEM 7 (LYTES,BUN,CREA,GLUC) on 01-13-2022 Anion gap [Moles/Vol] 15 mmol/L Normal 7-17 [facility] Comment on above: Performed By: #### I PB, CHM7, MGO #### [facility] (DEFAULT) [address] [place] [address] Chloride [Moles/Vol] 105 mmol/L Normal 98-108 [facility] Comment on above: Performed By: #### I PB, CHM7, MGO #### [facility] (DEFAULT) [address] [place] [address]797 CO2 [Moles/Vol] 25 mmol/L Normal 21-31 [facility] Comment on above: Performed By: #### I PB, CHM7, MGO #### [facility] (DEFAULT) [address] [place] [address]13 Creatinine [Mass/Vol] 0.59 mg/dL Normal 0.50-1.20 [facility] Comment on above: Performed By: #### I PB, CHM7, MGO #### [facility] (DEFAULT) [address] [place] [address]878 eGFR, CKD-EPI, Female >90 Normal >=60 [facility] Comment on above: Result Comment: Repo rted eGFR is based on the CKD-EPI 2020 equation using creatinine, age, and sex. Performed By: #### I PB, CHM7, MGO #### [facility] (DEFAULT) [address] [place] [address] 95245 Glucose [Mass/Vol] 118 mg/dL High 70-99 [facility] Comment on above: Performed By: #### I PB, CHM7, MGO #### [facility] (DEFAULT) [address] [place] [address] 61379 Osmolality [Osmolality] 300 mosm/kg Normal 278-305 [facility] Comment on above: Performed By: #### I PB, CHM7, MGO #### [facility] (DEFAULT) [address] [place] [address] 98338 Potassium [Moles/Vol] 4.3 mmol/L Normal 3.5-5.0 [facility] Comment on above: Performed By: #### I PB, CHM7, MGO #### [facility] (DEFAULT) [address] [place] [address] 79824 Sodium [Moles/Vol] 141 mmol/L Normal 135-145 [facility] Comment on above: Performed By: #### Derick PB, CHM7, MGO #### [facility] (DEFAULT) [address] [place] [address] 83041 Urea nitrogen [Mass/Vol] 23 mg/dL Normal 7-25 [facility] Comment on above: Performed By: #### I PB, CHM7, MGO #### [facility] (DEFAULT) [address] [place] [address] 67141 Urea nitrogen/Creatinine [Mass ratio] 39 mg/mg Normal [facility] Comment on above: Performed By: #### I PB, CHM7, MGO #### [facility] (DEFAULT) [address] [place] [address] 87462 Anion gap [Moles/Vol] 15 mmol/L 7 - 17 mmol/L [facility] Chloride [Moles/Vol] 105 mmol/L 98 - 10 8 mmol/L [facility] CO2 [Moles/Vol] 25 mmol/L 21 - 31 mmol/L [facility] Creatinine [Mass/Vol] 0.59 mg/dL 0.50 - 1.20 mg/dL [facility] GFR/1.73 sq M.predicted CKD-EPI (S/P/Bld) [Vol rate/Area] >90 >=60 mL/min/1.73m 2 [facility] Glucose [Mass/Vol] 118 mg/dL High 70 - 99 mg/dL [facility] Interpretation and review of laboratory results Abnormal [facility] Osmolality Calc [Osmolality] 300 [facility] Potassium [Moles/Vol] 4.3 mmol/L 3.5 - 5.0 mmol/L [facility] Sodium [Moles/Vol] 141 mmol/L 135 - 145 mmol/L [facility] Urea nitrogen [Mass/Vol] 23 mg/dL 7 - 25 mg/dL [facility] Urea nitrogen/Creatinine [Mass ratio] 39 mg/mg [facility] GLUCOSE POCon 01-13-2022 Glucose [Mass/Vol] 103 mg/dL High 70 - 99 mg/dL [facility] Interpretation and review of laboratory results Abnormal [facility] POC Sample Type CAPBL [facility] Glucose [Mass/Vol] 115 mg/dL High 70 - 99 mg/dL [facility] Interpretation and review of laboratory results Abnormal [facility] POC Sample Type CAPBL [facility] IONIZED CALCIUM, WHOLE BLOOD on 01-13-2022 ICA 4.80 mg/dL Normal 4.60-5.30 [facility] Comment on above: Performed By: #### T YPEC #### [facility] (DEFAULT) [address] [place] [address] IONIZED CALCIUM, WHOLE BLOOD Ordered By: Rodney Jimneez on 01-13-2022 Calcium.ionized (Bld) [Moles/Vol] 4.80 mg/dL 4.60 - 5.30 mg/dL [facility] Interpretation and review of laboratory results Normal [facility] MAGNESIUMon 01-13-2022 Magnesium [Mass/Vol] 1.8 mg/dL Normal 1.6-2.6 [facility] Comment on above: Performed By: #### I PB, HARJEETM7, MGO #### [facility] (DEFAULT) [address] [place] [address] 96655 Magnesium [Mass/Vol] 1.8 mg/dL 1.6 - 2 .6 mg/dL [facility] No Panel Informationon 01-13 Interpretation and review of laboratory results Normal [facility] PHOSPHATE, INORGANICon 01-13 Phosphorous 3.4 mg/dL Normal 2.2-4.6 [facility] Comment on above: Performed By: #### I PB, CHM7, MGO #### Jose Rafael [facility] (DEFAULT) [address] [address] Phosphate [Mass/Vol] 3.4 mg/dL 2.2 - 4 .6 mg/dL [facility] CBC,PLATELETSon 01-12-2022 Hematocrit (Bld) [Volume fraction] 25.7 % Low 34.9-44.3 [facility] Comment on above: Performed By: #### X M #### [facility] (DEFAULT) [address] [place] [address] 42523 Hemoglobin (Bld) [Mass/Vol] 7.7 g/dL Low 11.4-15.2 [facility] Comment on above: Performed By: #### X M #### [facility] (DEFAULT) [address] [address] MCV (RBC) [Entitic vol] 92.4 fL Normal 79.6-97.7 [facility] Comment on above: Performed By: #### X M #### [facility] (DEFAULT) [address] [address] Mean Cell Hgb 27.7 pg Normal 25.9-33.9 [facility] Comment on above: Performed By: #### X M #### [facility] (DEFAULT) [address] [place] [address] 42770 Mean Cell Hgb Conc 30.0 g/dL Low 31.4-35.9 [facility] Comment on above: Performed By: #### X M #### [facility] (DEFAULT) [address] [place] [address] 05261 Platelet mean volume (Bld) [Entitic vol] 10.4 fL Normal 8.5-12.2 [facility] Comment on above: Performed By: #### X M #### [facility] (DEFAULT) [address] [place] [address] 28116 Platelets (Bld) [#/Vol] 146 10*3/uL Low 150-393 [facility] Comment on above: Performed By: #### X M #### [facility] (DEFAULT) [address] [place] [address] 66378 RBC (Bld) [#/Vol] 2.78 10*6/uL Low 3.91-5.04 [facility] Comment on above: Performed By: #### X M #### [facility] (DEFAULT) [address] [place] [address] 19080 RBC Distribution 15.4 % High 10.8-14.9 [facility] Comment on above: Performed By: #### X M #### [facility] (DEFAULT) [address] [place] [address] 52629 WBC (Bld) [#/Vol] 10.39 10*3/uL Normal 3.99-11.19 [facility] Comment on above: Performed By: #### X M #### [facility] (DEFAULT) [address] [place] [address] 34793 Erythrocyte distribution width (RBC) [Ratio] 15.4 % High 10.8 - 14.9 % [facility] Hematocrit (Bld) [Volume fraction] 25.7 % Low 34.9 - 44.3 % [facility] Hemoglobin (Bld) [Mass/Vol] 7.7 g/dL Low 11.4 - 15.2 g/dL [facility] Interpretation and review of laboratory results Abnormal [facility] MCH (RBC) [Entitic mass] 27.7 pg 25.9 - 33.9 pg [facility] MCHC (RBC) [Mass/Vol] 30.0 g/dL Low 31.4 - 35.9 g/dL [facility] MCV (RBC) [Entitic vol] 92.4 fL 79.6 - 97.7 fL [facility] Platelet mean volume (Bld) [Entitic vol] 10.4 fL 8.5 - 12.2 fL [facility] Platelets (Bld) [#/Vol] 146 10*3/uL Low 150 - 393 K/uL [facility] RBC (Bld) [#/Vol] 2.78 10*6/uL Low [facility] WBC (Bld) [#/Vol] 10.39 10*3/uL 3.99 - 11 .19 K/uL [facility] CHEM 7 (LYTES,BUN,CREA,GLUC) on 01-12-2022 Anion gap [Moles/Vol] 10 mmol/L Normal 7-17 [facility] Comment on above: Performed By: #### L [id number] #### [facility] (DEFAULT) [address] [place] [address] 62940 Chloride [Moles/Vol] 106 mmol/L Normal 98-108 [facility] Comment on above: Performed By: #### L [id number] #### [facility] (DEFAULT) [address] [place] [address] 03586 CO2 [Moles/Vol] 32 mmol/L High 21-31 [facility] Comment on above: Performed By: #### L [id number] #### [facility] (DEFAULT) [address] [place] [address] 85489 Creatinine [Mass/Vol] 0.55 mg/dL Normal 0.50-1.20 [facility] Comment on above: Performed By: #### L [id number] #### [facility] (DEFAULT) [address] [place] [address] 10893 eGFR, CKD-EPI, Female >90 Normal >=60 [facility] Comment on above: Result Comment: Repo rted eGFR is based on the CKD-EPI 2020 equation using creatinine, age, and sex. Performed By: #### L [id number] #### [facility] (DEFAULT) [address] [place] [address] 15277 Glucose [Mass/Vol] 124 mg/dL High 70-99 [facility] Comment on above: Performed By: #### L [id number] #### [facility] (DEFAULT) [address] [place] [address] 61058 Osmolality [Osmolality] 303 mosm/kg Normal 278-305 [facility] Comment on above: Performed By: #### L [id number] #### [facility] (DEFAULT) [address] [place] [address] 14037 Potassium [Moles/Vol] 4.1 mmol/L Normal 3.5-5.0 [facility] Comment on above: Performed By: #### L [id number] #### [facility] (DEFAULT) [address] [place] [address] 18963 Sodium [Moles/Vol] 144 mmol/L Normal 135-145 [facility] Comment on above: Performed By: #### L [id number] #### [facility] (DEFAULT) [address] [place] [address] 73798 Urea nitrogen [Mass/Vol] 16 mg/dL Normal 7-25 [facility] Comment on above: Performed By: #### L [id number] #### [facility] (DEFAULT) [address] [place] [address] 44007 Urea nitrogen/Creatinine [Mass ratio] 29 mg/mg Normal [facility] Comment on above: Performed By: #### L [id number] #### [facility] (DEFAULT) [address] [place] [address] 70096 Anion gap [Moles/Vol] 10 mmol/L 7 - 17 mmol/L [facility] Chloride [Moles/Vol] 106 mmol/L 98 - 10 8 mmol/L [facility] CO2 [Moles/Vol] 32 mmol/L High 21 - 31 mmol/L [facility] Creatinine [Mass/Vol] 0.55 mg/dL 0.50 - 1.20 mg/dL [facility] GFR/1.73 sq M.predicted CKD-EPI (S/P/Bld) [Vol rate/Area] >90 >=60 mL/min/1.73m 2 [facility] Glucose [Mass/Vol] 124 mg/dL High 70 - 99 mg/dL [facility] Interpretation and review of laboratory results Abnormal [facility] Osmolality Calc [Osmolality] 303 [facility] Potassium [Moles/Vol] 4.1 mmol/L 3.5 - 5.0 mmol/L [facility] Sodium [Moles/Vol] 144 mmol/L 135 - 145 mmol/L [facility] Urea nitrogen [Mass/Vol] 16 mg/dL 7 - 25 mg/dL [facility] Urea nitrogen/Creatinine [Mass ratio] 29 mg/mg [facility] CONTINUOUS CARDIAC MONITORIN G STRIPOrdered By: Unassigned Pacs on 01-12-2022 [facility] Work Phone: GLUCOSE POCon 01-12-2022 Glucose [Mass/Vol] 127 mg/dL High 70 - 99 mg/dL [facility] Interpretation and review of laboratory results Abnormal [facility] POC Sample Type CAPBL [facility] IONIZED CALCIUM, WHOLE BLOOD on 01-12-2022 ICA 4.58 mg/dL Low 4.60-5.30 [facility] Comment on above: Performed By: #### X M #### [facility] (DEFAULT) [address] [place] [address] IONIZED CALCIUM, WHOLE BLOOD Ordered By: Kailee Barroso on 01-12-2022 Calcium.ionized (Bld) [Moles/Vol] 4.58 mg/dL Low 4.60 - 5.30 mg/dL [facility] Interpretation and review of laboratory results Abnormal [facility] MAGNESIUMon 01-12-2022 Magnesium [Mass/Vol] 1.7 mg/dL Normal 1.6-2.6 [facility] Comment on above: Performed By: #### L [id number] #### [facility] (DEFAULT) [address] [address] Magnesium [Mass/Vol] 1.7 mg/dL 1.6 - 2 .6 mg/dL [facility] No Panel Informationon 01-12 Interpretation and review of laboratory results Normal [facility] PHOSPHATE, INORGANICon 01-12 Phosphorous 2.2 mg/dL Normal 2.2-4.6 [facility] Comment on above: Performed By: #### L [id number] #### [facility] (DEFAULT) [address] [address] Phosphate [Mass/Vol] 2.2 mg/dL 2.2 - 4 .6 mg/dL [facility] CBC,PLATELETSon 01-11-2022 Hematocrit (Bld) [Volume fraction] 26.5 % Low 34.9-44.3 [facility] Comment on above: Performed By: #### X M #### [facility] (DEFAULT) [address] [address] Hemoglobin (Bld) [Mass/Vol] 8.1 g/dL Low 11.4-15.2 [facility] Comment on above: Performed By: #### X M #### [facility] (DEFAULT) [address] [address] MCV (RBC) [Entitic vol] 90.4 fL Normal 79.6-97.7 [facility] Comment on above: Performed By: #### X M #### [facility] (DEFAULT) [address] [place] [address] 84957 Mean Cell Hgb 27.6 pg Normal 25.9-33.9 [facility] Comment on above: Performed By: #### X M #### [facility] (DEFAULT) [address] [place] [address] 29081 Mean Cell Hgb Conc 30.6 g/dL Low 31.4-35.9 [facility] Comment on above: Performed By: #### X M #### [facility] (DEFAULT) [address] [place] [address] 24365 Platelet mean volume (Bld) [Entitic vol] 10.6 fL Normal 8.5-12.2 [facility] Comment on above: Performed By: #### X M #### [facility] (DEFAULT) [address] [place] [address] 03511 Platelets (Bld) [#/Vol] 209 10*3/uL Normal 150-393 [facility] Comment on above: Performed By: #### X M #### [facility] (DEFAULT) [address] [place] [address] 69192 RBC (Bld) [#/Vol] 2.93 10*6/uL Low 3.91-5.04 [facility] Comment on above: Performed By: #### X M #### [facility] (DEFAULT) [address] [place] [address] 10390 RBC Distribution 15.8 % High 10.8-14.9 [facility] Comment on above: Performed By: #### X M #### [facility] (DEFAULT) [address] [place] [address] 66831 WBC (Bld) [#/Vol] 11.52 10*3/uL High 3.99-11.19 [facility] Comment on above: Performed By: #### X M #### [facility] (DEFAULT) [address] [place] [address] 86341 Erythrocyte distribution width (RBC) [Ratio] 15.8 % High 10.8 - 14.9 % [facility] Hematocrit (Bld) [Volume fraction] 26.5 % Low 34.9 - 44.3 % [facility] Hemoglobin (Bld) [Mass/Vol] 8.1 g/dL Low 11.4 - 15.2 g/dL [facility] Interpretation and review of laboratory results Abnormal [facility] MCH (RBC) [Entitic mass] 27.6 pg 25.9 - 33.9 pg [facility] MCHC (RBC) [Mass/Vol] 30.6 g/dL Low 31.4 - 35.9 g/dL [facility] MCV (RBC) [Entitic vol] 90.4 fL 79.6 - 97.7 fL [facility] Platelet mean volume (Bld) [Entitic vol] 10.6 fL 8.5 - 12.2 fL [facility] Platelets (Bld) [#/Vol] 209 10*3/uL 150 - 393 K/uL [facility] RBC (Bld) [#/Vol] 2.93 10*6/uL Low [facility] WBC (Bld) [#/Vol] 11.52 10*3/uL High 3.99 - 11 .19 K/uL [facility] CHEM 7 (LYTES,BUN,CREA,GLUC) on 01-11-2022 Anion gap [Moles/Vol] 10 mmol/L Normal 7-17 [facility] Comment on above: Performed By: #### G AS5L #### [facility] (DEFAULT) [address] [place] [address] 85878 Chloride [Moles/Vol] 106 mmol/L Normal 98-108 [facility] Comment on above: Performed By: #### G AS5L #### [facility] (DEFAULT) [address] [place] [address] CO2 [Moles/Vol] 31 mmol/L Normal 21-31 [facility] Comment on above: Performed By: #### G AS5L #### [facility] (DEFAULT) [address] [place] [address] 09044 Creatinine [Mass/Vol] 0.64 mg/dL Normal 0.50-1.20 [facility] Comment on above: Performed By: #### G AS5L #### [facility] (DEFAULT) [address] [place] [address] 35262 eGFR, CKD-EPI, Female >90 Normal >=60 [facility] Comment on above: Result Comment: Repo rted eGFR is based on the CKD-EPI 2020 equation using creatinine, age, and sex. Performed By: #### G AS5L #### [facility] (DEFAULT) [address] [place] [address] 35908 Glucose [Mass/Vol] 103 mg/dL High 70-99 [facility] Comment on above: Performed By: #### G AS5L #### [facility] (DEFAULT) [address] [place] [address] 71159 Osmolality [Osmolality] 297 mosm/kg Normal 278-305 [facility] Comment on above: Performed By: #### G AS5L #### [facility] (DEFAULT) [address] [place] [address] 57202 Potassium [Moles/Vol] 4.5 mmol/L Normal 3.5-5.0 [facility] Comment on above: Performed By: #### G AS5L #### [facility] (DEFAULT) [address] [place] [address] 66389 Sodium [Moles/Vol] 142 mmol/L Normal 135-145 [facility] Comment on above: Performed By: #### G AS5L #### [facility] (DEFAULT) [address] [place] [address] 08621 Urea nitrogen [Mass/Vol] 10 mg/dL Normal 7-25 [facility] Comment on above: Performed By: #### G AS5L #### [facility] (DEFAULT) [address] [place] [address] Urea nitrogen/Creatinine [Mass ratio] 16 mg/mg Normal [facility] Comment on above: Performed By: #### G AS5L #### [facility] (DEFAULT) [address] [place] [address] Anion gap [Moles/Vol] 10 mmol/L 7 - 17 mmol/L [facility] Chloride [Moles/Vol] 106 mmol/L 98 - 10 8 mmol/L [facility] CO2 [Moles/Vol] 31 mmol/L 21 - 31 mmol/L [facility] Creatinine [Mass/Vol] 0.64 mg/dL 0.50 - 1.20 mg/dL [facility] GFR/1.73 sq M.predicted CKD-EPI (S/P/Bld) [Vol rate/Area] >90 >=60 mL/min/1.73m 2 [facility] Glucose [Mass/Vol] 103 mg/dL High 70 - 99 mg/dL [facility] Interpretation and review of laboratory results Abnormal [facility] Osmolality Calc [Osmolality] 297 [facility] Potassium [Moles/Vol] 4.5 mmol/L 3.5 - 5.0 mmol/L [facility] Sodium [Moles/Vol] 142 mmol/L 135 - 145 mmol/L [facility] Urea nitrogen [Mass/Vol] 10 mg/dL 7 - 25 mg/dL [facility] Urea nitrogen/Creatinine [Mass ratio] 16 mg/mg [facility] GLUCOSE POCon 01-11-2022 Glucose [Mass/Vol] 118 mg/dL High 70 - 99 mg/dL [facility] Interpretation and review of laboratory results Abnormal [facility] POC Sample Type CAPBL [facility] Glucose [Mass/Vol] 118 mg/dL High 70 - 99 mg/dL [facility] Interpretation and review of laboratory results Abnormal [facility] POC Sample Type CAPBL [facility] Glucose [Mass/Vol] 106 mg/dL High 70 - 99 mg/dL [facility] Interpretation and review of laboratory results Abnormal [facility] POC Sample Type CAPBL [facility] Glucose [Mass/Vol] 105 mg/dL High 70 - 99 mg/dL [facility] Interpretation and review of laboratory results Abnormal [facility] POC Sample Type VENO [facility] IONIZED CALCIUM, WHOLE BLOOD on 01-11-2022 ICA 4.80 mg/dL Normal 4.60-5.30 [facility] Comment on above: Performed By: #### I PB, CHM7, MGO #### [facility] (DEFAULT) [address] [place] [address] IONIZED CALCIUM, WHOLE BLOOD Ordered By: Domenico Tsang on 01-11-2022 Calcium.ionized (Bld) [Moles/Vol] 4.80 mg/dL 4.60 - 5.30 mg/dL [facility] Interpretation and review of laboratory results Normal [facility] MAGNESIUMon 01-11-2022 Magnesium [Mass/Vol] 2.1 mg/dL Normal 1.6-2.6 [facility] Comment on above: Performed By: #### G AS5L #### [facility] (DEFAULT) [address] [place] [address] Magnesium [Mass/Vol] 2.1 mg/dL 1.6 - 2 .6 mg/dL [facility] No Panel Informationon 01-11 Interpretation and review of laboratory results Normal [facility] PHOSPHATE, INORGANICon 01-11 Phosphorous 3.1 mg/dL Normal 2.2-4.6 [facility] Comment on above: Performed By: #### G AS5L #### [facility] (DEFAULT) [address] [place] [address] Phosphate [Mass/Vol] 3.1 mg/dL 2.2 - 4 .6 mg/dL [facility] CBC,PLATELETSon 01-10-2022 Hematocrit (Bld) [Volume fraction] 25.3 % Low 34.9-44.3 [facility] Comment on above: Performed By: #### I PB, CHM7, MGO #### [facility] (DEFAULT) [address] [place] [address] 25747 Hemoglobin (Bld) [Mass/Vol] 8.1 g/dL Low 11.4-15.2 [facility] Comment on above: Performed By: #### I PB, CHM7, MGO #### [facility] (DEFAULT) [address] [place] [address] 48622 MCV (RBC) [Entitic vol] 86.6 fL Normal 79.6-97.7 [facility] Comment on above: Performed By: #### I PB, CHM7, MGO #### [facility] (DEFAULT) [address] [place] [address] 20546 Mean Cell Hgb 27.7 pg Normal 25.9-33.9 [facility] Comment on above: Performed By: #### I PB, CHM7, MGO #### [facility] (DEFAULT) [address] [place] [address] 84611 Mean Cell Hgb Conc 32.0 g/dL Normal 31.4-35.9 [facility] Comment on above: Performed By: #### I PB, CHM7, MGO #### [facility] (DEFAULT) [address] [place] [address] 07851 Platelet mean volume (Bld) [Entitic vol] 10.5 fL Normal 8.5-12.2 [facility] Comment on above: Performed By: #### I PB, CHM7, MGO #### [facility] (DEFAULT) [address] [place] [address] 84958 Platelets (Bld) [#/Vol] 196 10*3/uL Normal 150-393 [facility] Comment on above: Performed By: #### I PB, CHM7, MGO #### [facility] (DEFAULT) [address] [place] [address] 86323 RBC (Bld) [#/Vol] 2.92 10*6/uL Low 3.91-5.04 [facility] Comment on above: Performed By: #### I PB, CHM7, MGO #### [facility] (DEFAULT) [address] [place] [address] 75441 RBC Distribution 16.1 % High 10.8-14.9 [facility] Comment on above: Performed By: #### I PB, CHM7, MGO #### [facility] (DEFAULT) [address] [place] [address] 17730 WBC (Bld) [#/Vol] 12.90 10*3/uL High 3.99-11.19 [facility] Comment on above: Performed By: #### I PB, CHM7, MGO #### [facility] (DEFAULT) [address] [place] [address] 19939 Erythrocyte distribution width (RBC) [Ratio] 16.1 % High 10.8 - 14.9 % [facility] Hematocrit (Bld) [Volume fraction] 25.3 % Low 34.9 - 44.3 % [facility] Hemoglobin (Bld) [Mass/Vol] 8.1 g/dL Low 11.4 - 15.2 g/dL [facility] Interpretation and review of laboratory results Abnormal [facility] MCH (RBC) [Entitic mass] 27.7 pg 25.9 - 33.9 pg [facility] MCHC (RBC) [Mass/Vol] 32.0 g/dL 31.4 - 35.9 g/dL [facility] MCV (RBC) [Entitic vol] 86.6 fL 79.6 - 97.7 fL [facility] Platelet mean volume (Bld) [Entitic vol] 10.5 fL 8.5 - 12.2 fL [facility] Platelets (Bld) [#/Vol] 196 10*3/uL 150 - 393 K/uL [facility] RBC (Bld) [#/Vol] 2.92 10*6/uL Low [facility] WBC (Bld) [#/Vol] 12.90 10*3/uL High 3.99 - 11 .19 K/uL [facility] CHEM 7 (LYTES,BUN,CREA,GLUC) on 01-10-2022 Anion gap [Moles/Vol] 12 mmol/L Normal 7-17 [facility] Comment on above: Performed By: #### I PB, CHM7, MGO #### [facility] (DEFAULT) [address] [place] [address] Chloride [Moles/Vol] 107 mmol/L Normal 98-108 [facility] Comment on above: Performed By: #### I PB, CHM7, MGO #### [facility] (DEFAULT) [address] [place] [address] CO2 [Moles/Vol] 28 mmol/L Normal 21-31 [facility] Comment on above: Performed By: #### I PB, CHM7, MGO #### [facility] (DEFAULT) [address] [place] [address] Creatinine [Mass/Vol] 0.57 mg/dL Normal 0.50-1.20 [facility] Comment on above: Performed By: #### I PB, CHM7, MGO #### [facility] (DEFAULT) [address] [place] [address]43 eGFR, CKD-EPI, Female >90 Normal >=60 [facility] Comment on above: Result Comment: Repo rted eGFR is based on the CKD-EPI 2020 equation using creatinine, age, and sex. Performed By: #### I PB, CHM7, MGO #### [facility] (DEFAULT) [address] [place] [address] Glucose [Mass/Vol] 102 mg/dL High 70-99 [facility] Comment on above: Performed By: #### I PB, CHM7, MGO #### [facility] (DEFAULT) [address] [place] [address] Osmolality [Osmolality] 298 mosm/kg Normal 278-305 [facility] Comment on above: Performed By: #### I PB, CHM7, MGO #### [facility] (DEFAULT) [address] [place] [address] Potassium [Moles/Vol] 4.2 mmol/L Normal 3.5-5.0 [facility] Comment on above: Performed By: #### I PB, CHM7, MGO #### [facility] (DEFAULT) [address] [place] [address] Sodium [Moles/Vol] 143 mmol/L Normal 135-145 [facility] Comment on above: Performed By: #### I PB, CHM7, MGO #### [facility] (DEFAULT) [address] [place] [address]336 Urea nitrogen [Mass/Vol] 11 mg/dL Normal 7-25 [facility] Comment on above: Performed By: #### I PB, CHM7, MGO #### [facility] (DEFAULT) [address] [place] [address] 55534 Urea nitrogen/Creatinine [Mass ratio] 19 mg/mg Normal [facility] Comment on above: Performed By: #### I PB, CHM7, MGO #### [facility] (DEFAULT) [address] [place] [address] Anion gap [Moles/Vol] 12 mmol/L 7 - 17 mmol/L [facility] Chloride [Moles/Vol] 107 mmol/L 98 - 10 8 mmol/L [facility] CO2 [Moles/Vol] 28 mmol/L 21 - 31 mmol/L [facility] Creatinine [Mass/Vol] 0.57 mg/dL 0.50 - 1.20 mg/dL [facility] GFR/1.73 sq M.predicted CKD-EPI (S/P/Bld) [Vol rate/Area] >90 >=60 mL/min/1.73m 2 [facility] Glucose [Mass/Vol] 102 mg/dL High 70 - 99 mg/dL [facility] Interpretation and review of laboratory results Abnormal [facility] Osmolality Calc [Osmolality] 298 [facility] Potassium [Moles/Vol] 4.2 mmol/L 3.5 - 5.0 mmol/L [facility] Sodium [Moles/Vol] 143 mmol/L 135 - 145 mmol/L [facility] Urea nitrogen [Mass/Vol] 11 mg/dL 7 - 25 mg/dL [facility] Urea nitrogen/Creatinine [Mass ratio] 19 mg/mg [facility] EXTRA MICROon 01-10-2022 [facility] GLUCOSE POCon 01-10-2022 Glucose [Mass/Vol] 85 mg/dL 70 - 99 mg/dL [facility] POC Sample Type CAPBL [facility] Glucose [Mass/Vol] 86 mg/dL 70 - 99 mg/dL [facility] POC Sample Type CAPBL [facility] Glucose [Mass/Vol] 102 mg/dL High 70 - 99 mg/dL [facility] Interpretation and review of laboratory results Abnormal [facility] POC Sample Type CAPBL [facility] IONIZED CALCIUM, WHOLE BLOOD on 01-10-2022 ICA 4.48 mg/dL Low 4.60-5.30 [facility] Comment on above: Performed By: #### I CA ####[facility] (DEFAULT)[address] [place] [address] MAGNESIUMon 01-10-2022 Magnesium [Mass/Vol] 2.0 mg/dL Normal 1.6-2.6 [facility] Comment on above: Performed By: #### I PB, CHM7, MGO #### [facility] (DEFAULT) [address] [place] [address] Magnesium [Mass/Vol] 2.0 mg/dL 1.6 - 2 .6 mg/dL [facility] No Panel Informationon 01-10 [facility] Interpretation and review of laboratory results Normal [facility] PHOSPHATE, INORGANICon 01-10 Phosphorous 2.8 mg/dL Normal 2.2-4.6 [facility] Comment on above: Performed By: #### I PB, CHM7, MGO #### [facility] (DEFAULT) [address] [place] [address] Phosphate [Mass/Vol] 2.8 mg/dL 2.2 - 4 .6 mg/dL [facility] URINE CULTUREOrdered By: Wen Vanegas on 01-10-2022 Bacteria identified Cx Nom (Unsp spec) No Growth [facility] XR ABDOMEN 1 VIEWon 01-11-20 XR ABDOMEN [...] air. IMPRESSION: Postpyloric enteric tube position. Normal [facility] XR Abdomen Single viewon RADIOLOGY RADIOLOGY [facility] Radiology Study observation (narrative) [facility] XR Abdomen Single viewOrdere d By: Radha Taveras on 01-10-2022 [facility] Work Phone: ARTERIAL BLOOD GAS PLUS LACT ATEon 01-09-2022 Base Excess 4.8 mmol/L High -3.0-3.0 [facility] Comment on above: Performed By: #### Maritza AS5L #### [facility] (DEFAULT) [address] [place] [address] 28702 HCO3 (Bld) [Moles/Vol] 28 mmol/L Normal 22-28 [facility] Comment on above: Performed By: #### Maritza AS5L #### [facility] (DEFAULT) [address] [address] Lactate, Whole Blood 0.7 mmol/L Normal 0.5-1.6 [facility] Comment on above: Performed By: #### Maritza AS5L #### [facility] (DEFAULT) [address] [address] pCO2 38 mm Hg Normal 32-48 [facility] Comment on above: Performed By: #### Maritza AS5L #### [facility] (DEFAULT) [address] [address] pH (Bld) 7.48 [pH] High 7.35-7.45 [facility] Comment on above: Performed By: #### Maritza AS5L #### [facility] (DEFAULT) [address] [address] pO2 139 mm Hg High 83-108 [facility] Comment on above: Performed By: #### Maritza AS5L #### [facility] (DEFAULT) [address] [address] sO2 99 % High 94-98 [facility] Comment on above: Performed By: #### Maritza AS5L #### [facility] (DEFAULT) [address] [address] Specimen type Nom (Spec) Arterial Normal [facility] Comment on above: Performed By: #### Maritza AS5L #### [facility] (DEFAULT) [address] [place] [address] BLOOD CULTUREon 01-09-2022 Bacteria identified Cx Nom (Unsp spec) NO GROWTH DAY 5 OF 5 Normal [facility] Comment on above: Order Comment: 2 Bot tles (1 Set - consists of 1 Aerobic bottle and 1 Anaerobic bottle) -1st Peripheral DrawFor syringe method draw:If able to obtain adequate sample (20 ml) inoculate anaerobic bottle firstIf inadequate sample obtained (less than 20 ml) inoculate aerobic bottle firstFor vacutainer method draw: Fill aerobic bottle first, then anaerobic Performed By: #### X M #### [facility] (DEFAULT) [address] [address] Bacteria identified Cx Nom (Unsp spec) NO GROWTH DAY 5 OF 5 Normal [facility] Comment on above: Order Comment: 2 Bot tles (1 Set - consists of 1 Aerobic bottle and 1 Anaerobic bottle) -1st Peripheral DrawFor syringe method draw:If able to obtain adequate sample (20 ml) inoculate anaerobic bottle firstIf inadequate sample obtained (less than 20 ml) inoculate aerobic bottle firstFor vacutainer method draw: Fill aerobic bottle first, then anaerobic Performed By: #### X M #### [facility] (DEFAULT) [address] [address] CBC,PLATELETSon 01-09-2022 Hematocrit (Bld) [Volume fraction] 27.5 % Low 34.9-44.3 [facility] Comment on above: Performed By: #### L [id number] #### [facility] (DEFAULT) [address] [address] Hemoglobin (Bld) [Mass/Vol] 9.1 g/dL Low 11.4-15.2 [facility] Comment on above: Performed By: #### L ABSARS1 #### [facility] (DEFAULT) [address] [address] MCV (RBC) [Entitic vol] 83.8 fL Normal 79.6-97.7 [facility] Comment on above: Performed By: #### L [id number] #### [facility] (DEFAULT) [address] [address] Mean Cell Hgb 27.7 pg Normal 25.9-33.9 [facility] Comment on above: Performed By: #### L ABSARS1 #### [facility] (DEFAULT) [address] [address] Mean Cell Hgb Conc 33.1 g/dL Normal 31.4-35.9 [facility] Comment on above: Performed By: #### L [id number] #### [facility] (DEFAULT) [address] [place] [address]70 Platelet mean volume (Bld) [Entitic vol] 10.1 fL Normal 8.5-12.2 [facility] Comment on above: Performed By: #### L ABSARS1 #### [facility] (DEFAULT) [address] [address] Platelets (Bld) [#/Vol] 208 10*3/uL Normal 150-393 [facility] Comment on above: Performed By: #### L ABSARS1 #### [facility] (DEFAULT) [address] [address] RBC (Bld) [#/Vol] 3.28 10*6/uL Low 3.91-5.04 [facility] Comment on above: Performed By: #### L [id number] #### [facility] (DEFAULT) [address] [address] RBC Distribution 15.9 % High 10.8-14.9 [facility] Comment on above: Performed By: #### L [id number] #### [facility] (DEFAULT) [address] [address] WBC (Bld) [#/Vol] 12.22 10*3/uL High 3.99-11.19 [facility] Comment on above: Performed By: #### L ABSARS1 #### [facility] (DEFAULT) [address] [address] CHEM 7 (LYTES,BUN,CREA,GLUC) on 01-09-2022 Anion gap [Moles/Vol] 15 mmol/L Normal 7-17 [facility] Comment on above: Performed By: #### C HM7, PROCAL, IPB, CKB, MGO ####[facility] (DEFAULT)[address] [facility] [place] [address] Chloride [Moles/Vol] 104 mmol/L Normal 98-108 [facility] Comment on above: Performed By: #### C HM7, PROCAL, IPB, CKB, MGO ####[facility] (DEFAULT)[address] [facility] [place] [address] CO2 [Moles/Vol] 26 mmol/L Normal 21-31 [facility] Comment on above: Performed By: #### C HM7, PROCAL, IPB, CKB, MGO ####[facility] (DEFAULT)[address] [facility] [place] [address] Creatinine [Mass/Vol] 0.73 mg/dL Normal 0.50-1.20 [facility] Comment on above: Performed By: #### C HM7, PROCAL, IPB, CKB, MGO ####[facility] (DEFAULT)[address] [facility] [place] [address] GFR/1.73 sq M.predicted among non-blacks MDRD (S/P/Bld) [Vol rate/Area] 90 mL/min/{1.73_m2} Normal >=60 [facility] Comment on above: Result Comment: Repo rted eGFR is based on the CKD-EPI 2020 equation using creatinine, age, and sex. Performed By: #### C HM7, PROCAL, IPB, CKB, MGO ####[facility] (DEFAULT)[address] [facility] [place] [address] Glucose [Mass/Vol] 85 mg/dL Normal 70-99 [facility] Comment on above: Performed By: #### C HM7, PROCAL, IPB, CKB, MGO ####[facility] (DEFAULT)[address] [place] [address] Osmolality [Osmolality] 295 mosm/kg Normal 278-305 [facility] Comment on above: Performed By: #### C HM7, PROCAL, IPB, CKB, MGO ####[facility] (DEFAULT)[address] [place] [address] Potassium [Moles/Vol] 3.7 mmol/L Normal 3.5-5.0 [facility] Comment on above: Performed By: #### C HM7, PROCAL, IPB, CKB, MGO ####[facility] (DEFAULT)[address] [place] [address] Sodium [Moles/Vol] 141 mmol/L Normal 135-145 [facility] Comment on above: Performed By: #### C HM7, PROCAL, IPB, CKB, MGO ####[facility] (DEFAULT)[address] [place] [address] Urea nitrogen [Mass/Vol] 17 mg/dL Normal 7-25 [facility] Comment on above: Performed By: #### C HM7, PROCAL, IPB, CKB, MGO ####[facility] (DEFAULT)[address] [place] [address] Urea nitrogen/Creatinine [Mass ratio] 23 mg/mg Normal [facility] Comment on above: Performed By: #### C HM7, PROCAL, IPB, CKB, MGO ####[facility] (DEFAULT)[address] [place] [address] CKon 01-09-2022 CK [Catalytic activity/Vol] 126 U/L 30 - 184 U/L [facility] Interpretation and review of laboratory results Normal [facility] CK [Catalytic activity/Vol] 126 U/L Normal 30-184 [facility] Comment on above: Performed By: #### C HM7, PROCAL, IPB, CKB, MGO ####[facility] (DEFAULT)[address] [place] [address] CT HEAD WITHOUT CONTRASTon 0 01-09-2022 CT [...] have reviewed and approved this report. Normal [facility] CT Head WO contraston 2021 [facility] Head WO contrastOrdered B y: Kacy Cedeno on 01-09-2022 [facility] Work Phone: Cardiac echo study Procedure Ordered By: Camilo Saldaña on 01-09-2022 Ao peak catie 1.48 m/s [facility] Work Phone: Ao VTI 33.79 cm [facility] Work Phone: Ascending aorta 2.27 cm [facility] Work Phone: AV LVOT peak gradient 5 mmHg [facility] Work Phone: AV mean gradient 5 mmHg [facility] Work Phone: AV peak gradient 9 mmHG [facility] Work Phone: AV valve area 1.84 cm2 [facility] Work Phone: AV Velocity Ratio 0.73 [facility] Work Phone: IRVIN (continuity Vmax) 2.20 cm2 [facility] Work Phone: IRVIN (continuity VTI) 1.84 cm2 [facility] Work Phone: Avg e' pk catie 0.10 m/s [facility] Work Phone: Avg E/e' ratio 12.77 [facility] Work Phone: BP EF 59 % [facility] Work Phone: DI (Vmax) 0.73 [facility] Work Phone: DI (VTI) 0.61 m/2 [facility] Work Phone: E wave decelartion time 132.60 msec [facility] Work Phone: e' lateral pk catie 0.1072 m/s [facility] Work Phone: e' lateral pk catie 0.11 m[facility]: e' septal pk catie 0.0901 m/s [facility] Work Phone: e' septal pk catie 0.09 m/s [facility] Work Phone: E/e' lateral ratio 11.66 [facility] Work Phone: E/e' septal ratio 13.87 [facility] Work Phone: EF SP 2CH 56 [facility] Work Phone: EF SP 4CH 59 [facility] Work Phone: FS 28 % 28 - 44 % [facility] Work Phone: IVC ostium 1.53 cm [facility] Work Phone: IVS 0.82 cm [facility] Work Phone: LA AREA 2CH 13.89 cm2 [facility] Work Phone: LA area 4CH 11.17 cm2 [facility] Work Phone: LA ESV BP (MOD) 32 mL [facility] Work Phone: LA ESV SP 2CH (MOD) 41 mL [facility] Work Phone: LA ESV SP 4CH (MOD) 22 mL [facility] Work Phone: LV EDV BP 80 mL [facility] Work Phone: LV EDV SP 2CH 77 mL [facility] Work Phone: LV EDV SP 4CH 75 mL [facility] Work Phone: LV ESV BP 33 mL [facility] Work Phone: LV ESV SP 2CH 34 mL [facility] Work Phone: LV ESV SP 4CH 31 mL [facility] Work Phone: LV mass 146.19 g [facility] Work Phone: LV RWT 0.37 [facility] Work Phone: LV stroke volume BP (ml) 47 mL [facility] Work Phone: LVIDD 4.92 cm [facility] Work Phone: LVIDS 3.55 cm [facility] Work Phone: LVOT area 3.02 cm2 [facility] Work Phone: LVOT diameter 1.96 cm [facility] Work Phone: LVOT peak catie 1.08 m/s [facility] Work Phone: LVOT peak VTI 20.67 cm [facility] Work Phone: LVOT stroke volume 62 cm3 [facility] Work Phone: Mr max catie 5.15 m/s [facility] Work Phone: MR VTI 148.31 cm [facility] Work Phone: MV pk E catie 1.25 m/s [facility] Work Phone: MV stenosis pressure 1/2 time 38.46 ms [facility] Work Phone: MV valve area p 1/2 method 5.72 cm2 [facility] Work Phone: OSU AV VTI RATIO PRE STRESS 0.61 [facility] Work Phone: OSU ECHO MR PEAK GRADIENT 106.16 mmHg [facility] Work Phone: OSU RVOT VTI RATIO 0.95 [facility] Work Phone: PV mean gradient 3 mmHg [facility] Work Phone: PV peak gradient 5 mmHg [facility] Work Phone: PV PK CATIE 1.12 m/s [facility] Work Phone: PV VTI 19.49 cm2 [facility] Work Phone: PW 0.91 cm [facility] Work Phone: Right atrium volume 4 chamber method of disks 31 mL [facility] Work Phone: RV basal diam 3.66 cm [facility] Work Phone: RV long diam 8.58 cm [facility] Work Phone: RV mid diam 2.00 cm [facility] Work Phone: RV S' 12.66 cm/s [facility] Work Phone: RVOT peak gradient 5 mmHg [facility]: RVOT peak catie 1.12 m/s [facility] Work Phone: RVOT peak VTI 18.59 cm [facility] Work Phone: Sinus 3.07 cm [facility] Work Phone: Stroke Volume 62 cm/mL [facility] Work Phone: TAPSE 1.70 cm [facility] Work Phone: TR pk grad 30 mmHg [facility] Work Phone: TR pk catie 2.75 m/s [facility] Work Phone: [facility] Work Phone: Cardiac echo study Procedure on 01-09-2022 [facility] Radiology Study observation (narrative) [facility] DRUGS OF ABUSE SCREEN 10, UR INEon 01-09-2022 Amphetamine/Methampheta mine Negative Normal Cutoff: 500 ng/mL [facility] Comment on above: Order Comment: For m edical purposes only. Positive results are unconfirmed unless otherwise noted. Performed By: #### I ANTELMO MONTESINOS, MGO #### [facility] (DEFAULT) [address] [place] [address] Barbiturates Negative Normal Cutoff: 200 ng/mL [facility] Comment on above: Order Comment: For m edical purposes only. Positive results are unconfirmed unless otherwise noted. Performed By: #### I ANTELMO MONTESINOS, MGO #### [facility] (DEFAULT) [address] [address] Benzodiazepines Positive Abnormal Cutoff: 200 ng/mL [facility] Comment on above: Order Comment: For m edical purposes only. Positive results are unconfirmed unless otherwise noted. Performed By: #### I PB, CHM7, MGO #### [facility] (DEFAULT) [address] [place] [address] Buprenorphine Negative Normal Cutoff: 5 ng/mL [facility] Comment on above: Order Comment: For edical purposes only. Positive results are unconfirmed unless otherwise noted. Performed By: #### I PB, CHM7, MGO #### [facility] (DEFAULT) [address] [address] Cannabinoids Screen Ql (U) Negative Normal Cutoff: 50 ng/mL [facility] Comment on above: Order Comment: For m edical purposes only. Positive results are unconfirmed unless otherwise noted. Performed By: #### I PB, CHM7, MGO #### [facility] (DEFAULT) [address] [address] Cocaine Negative Normal Cutoff: 150 ng/mL [facility] Comment on above: Order Comment: For edical purposes only. Positive results are unconfirmed unless otherwise noted. Performed By: #### I PB, CHM7, MGO #### [facility] (DEFAULT) [address] [address] Fentanyl Positive Abnormal Cutoff: 1 ng/mL [facility] Comment on above: Order Comment: For edical purposes only. Positive results are unconfirmed unless otherwise noted. Performed By: #### I PB, CHM7, MGO #### [facility] (DEFAULT) [address] [address] Methadone Negative Normal Cutoff: 300 ng/mL [facility] Comment on above: Order Comment: For edical purposes only. Positive results are unconfirmed unless otherwise noted. Performed By: #### I PB, CHM7, MGO #### [facility] (DEFAULT) [address] [place] [address] Opiates Positive Abnormal Cutoff: 300 ng/mL [facility] Comment on above: Order Comment: For m edical purposes only. Positive results are unconfirmed unless otherwise noted. Performed By: #### I PB, CHM7, MGO #### [facility] (DEFAULT) [address] [place] [address] Oxycodone Negative Normal Cutoff: 100 ng/mL [facility] Comment on above: Order Comment: For m edical purposes only. Positive results are unconfirmed unless otherwise noted. Performed By: #### I YAMEL, HARJEETM7, MGO #### [facility] (DEFAULT) [address] [place] [address] ECHOCARDIOGRAMon 01-09-2022 Echocardiography Normal left ventricu lar size and systolic function. EF 60%. Normal right ventricular size and function. No significant valvular disease identified. Facility [facility] Patient Information Patient Name Luiza May [...] Role Read Date Camilo Saldaña MD Echo [place] 01/09/2022 Left Heart Measurements LV - Systole LVIDD 4.92 cm IVS 0.82 cm LVIDS 3.55 cm PW 0.91 cm LV RWT 0.37 LV EDV BP 80 mL LV ESV BP 33 mL BP EF 59 % LV stroke volume BP (ml) 47 mL LV - Diastole MV pk E actie 1.25 m/s e' septal pk catie 0.09 [...] echocardiography study was performed. Imaging system used: Siemens. Indications for study: stroke/tia. Exam Details Performed Procedure Technologist Supporting Staff Performing Physician [place] ECHOCARDIOGRAM W/O 3D Celine Newman RDCS Appointment Date/Status Modality Department 01/09/2022 Arrived ECHO TESTING, [facility] ECHOCARDIOGRAPHY ROSS Begin Exam End Exam [...] because no one can access it in [email or web address]. ECHOCARDIOGRAM: Patient Communication Released Not seen ABN Associated with this Order There is no ABN associated with this order. Normal [facility] GLUCOSE POCon 01-09-2022 Glucose [Mass/Vol] 91 mg/dL 70 - 99 mg/dL [facility] POC Sample Type ARTER [facility] Glucose [Mass/Vol] 123 mg/dL High 70 - 99 mg/dL [facility] Interpretation and review of laboratory results Abnormal [facility] POC Sample Type CAPBL [facility] Glucose [Mass/Vol] 128 mg/dL High 70 - 99 mg/dL [facility] [facility] Interpretation and review of laboratory results Abnormal [facility] POC Sample Type CAPBL [facility] Glucose [Mass/Vol] 113 mg/dL High 70 - 99 mg/dL [facility] Interpretation and review of laboratory results Abnormal [facility] POC Sample Type VENO [facility] HEMOGLOBIN [id number] By: Tami Echavarria on 01-09-2022 Average glucose Estimated from glycated hemoglobin (Bld) [Mass/Vol] 105 mg/dL [facility] HbA1c (Bld) [Mass fraction] 5.3 % 4.7 - 5.6 % [facility] HEMOGLOBIN A1Con 01-09-2022 Glucose [Mass/Vol] 105 mg/dL Normal [facility] Comment on above: Performed By: #### L [id number] #### [facility] (DEFAULT) [address] [place] [address] HbA1c (Bld) [Mass fraction] 5.3 % Normal 4.7-5.6 [facility] Comment on above: Performed By: #### L [id number] #### [facility] (DEFAULT) [address] [place] [address] 66160 IONIZED CALCIUM, WHOLE BLOOD Ordered By: Carla Smith on 01-09-2022 Calcium.ionized (Bld) [Moles/Vol] 4.48 mg/dL Low 4.60 - 5.30 mg/dL [facility] Interpretation and review of laboratory results Abnormal [facility] IONIZED CALCIUM, WHOLE BLOOD on 01-09-2022 ICA 4.34 mg/dL Low 4.60-5.30 [facility] Comment on above: Performed By: #### T YPEC #### [facility] (DEFAULT) [address] [place] [address] MAGNESIUMon 01-09-2022 Magnesium [Mass/Vol] 1.5 mg/dL Low 1.6-2.6 [facility] Comment on above: Performed By: #### C HM7, PROCAL, IPB, CKB, MGO ####[facility] (DEFAULT)[address] [place] [address] No Panel Informationon 01-09 ABO/RH(D) TYPE Positive [facility] BLOOD COMPONENT TYPE Red Cells, Leukoreduced [facility] BLOOD COMPONENT TYPE Plasma, Thawed [facility] EXPIRATION DATE [facility] EXPIRATION DATE [facility] EXPIRATION DATE [facility] Product ABO/RH(D) Positive [facility] Product ABO/RH(D) NUMBER 5100 [facility] Product ABO/RH(D) NUMBER 6200 [facility] PRODUCT CODE [id number] [facility] PRODUCT CODE [id number] [facility] UNIT STATUS released [facility] PHOSPHATE, INORGANICon 01-09 Phosphorous 2.1 mg/dL Low 2.2-4.6 [facility] Comment on above: Performed By: #### C HM7, PROCAL, IPB, CKB, MGO ####[facility] (DEFAULT)[facility] [place] [address] PREPARE TO TRANSFUSE OR PLAS MAon 01-09-2022 EXPIRATION DATE [facility] PRODUCT CODE [id number] [facility] UNIT NUMBER [id number] [facility] UNIT NUMBER [id number] [facility] UNIT NUMBER [id number] [facility] PREPARE TO TRANSFUSE OR RED BLOOD CELLSon 01-09-2022 UNIT NUMBER [id number] [facility] UNIT NUMBER [id number] [facility] UNIT NUMBER [id number] [facility] UNIT NUMBER [id number] [facility] UNIT STATUS transfused [facility] PROCALCITONINon 01-09-2022 Procalcitonin 0.10 ng/mL Normal <0.50 [facility] Comment on above: Result Comment: Proc alcitonin [...] and trend procalcitonin in various clinical settings. [email or web address] Two common cutoffs associated with bacterial infections are as follows. Respiratory tract infections: >0.25 ng/mL Sepsis/septic shock: >0.5 ng/mL Procalcitonin should not be used alone as a diagnostic tool, however. All procalcitonin results should be interpreted in association with the patients clinical condition and all laboratory findings. Performed By: #### C HM7, PROCAL, IPB, CKB, MGO ####[facility] (DEFAULT)[address] [address] PT,INR,PTTon 01-09-2022 aPTT Coag (Bld) [Time] 26.7 s Normal 24.0-34.3 [facility] Comment on above: Performed By: #### G AS5L #### [facility] (DEFAULT) [address] [address] INR Coag (PPP) [Relative time] 1.1 {INR} Normal 0.9-1.1 [facility] Comment on above: Performed By: #### G AS5L #### [facility] (DEFAULT) [address] [address] PT Coag (PPP) [Time] 14.1 s Normal 11.9-14.2 [facility] Comment on above: Performed By: #### G AS5L #### [facility] (DEFAULT) [address] [address] Portable XR Chest Viewson RADIOLOGY RADIOLOGY [facility] Radiology Study observation (narrative) [facility] RADIOLOGY RADIOLOGY [facility] Portable XR Chest ViewsOrder ed By: Spencer Salinas on 01-09-2022 [facility] Work Phone: URINALYSIS REFLEX TO CULTURE PERFORMABLEon 01-09-2022 Appearance (U) Clear Normal Clear [facility] Comment on above: Order Comment: For i ndwelling catheters, specimen collection is acceptable on catheter day 1 and 2 only. ? Performed By: #### X M #### [facility] (DEFAULT) [address] [place] [address]855 Bacteria ABSENT Normal ABSENT [facility] Comment on above: Order Comment: For i ndwelling catheters, specimen collection is acceptable on catheter day 1 and 2 only. ? Performed By: #### X M #### [facility] (DEFAULT) [address] [place] [address] Blood Urine Trace Abnormal Negative [facility] Comment on above: Order Comment: For i ndwelling catheters, specimen collection is acceptable on catheter day 1 and 2 only. ? Performed By: #### X M #### [facility] (DEFAULT) [address] [place] [address]199 Color (U) Yellow Normal Yellow [facility] Comment on above: Order Comment: For i ndwelling catheters, specimen collection is acceptable on catheter day 1 and 2 only. ? Performed By: #### X M #### [facility] (DEFAULT) [address] [place] [address] Glucose Ql (U) Negative Normal Negative [facility] Comment on above: Order Comment: For i ndwelling catheters, specimen collection is acceptable on catheter day 1 and 2 only. ? Performed By: #### X M #### [facility] (DEFAULT) [address] [place] [address]4064 Ketones Ql (U) >=80 mg/dL = Large Abnormal Negative [facility] Comment on above: Order Comment: For i ndwelling catheters, specimen collection is acceptable on catheter day 1 and 2 only. ? Performed By: #### X M #### [facility] (DEFAULT) [address] [place] [address]604 Leukocyte esterase Test strip Ql (U) Trace Abnormal Negative [facility] Comment on above: Order Comment: For i ndwelling catheters, specimen collection is acceptable on catheter day 1 and 2 only. ? Performed By: #### X M #### [facility] (DEFAULT) [address] [place] [address] 09371 Nitrites Urine Negative Normal Negative [facility] Comment on above: Order Comment: For i ndwelling catheters, specimen collection is acceptable on catheter day 1 and 2 only. ? Performed By: #### X M #### [facility] (DEFAULT) [address] [place] [address]605 pH (U) 5.0 [pH] Normal 5.0-7.0 [facility] Comment on above: Order Comment: For i ndwelling catheters, specimen collection is acceptable on catheter day 1 and 2 only. ? Performed By: #### X M #### [facility] (DEFAULT) [address] [place] [address] 31131 Protein Urine Negative Normal Negative [facility] Comment on above: Order Comment: For i ndwelling catheters, specimen collection is acceptable on catheter day 1 and 2 only. ? Performed By: #### X M #### [facility] (DEFAULT) [address] [place] [address] 74122 RBC Urine 3-5 Abnormal 0-2 [facility] Comment on above: Order Comment: For i ndwelling catheters, specimen collection is acceptable on catheter day 1 and 2 only. ? Performed By: #### X M #### [facility] (DEFAULT) [address] [place] [address] 42667 Specific [place] Urine 1.045 High 1.001-1.035 [facility] Comment on above: Order Comment: For i ndwelling catheters, specimen collection is acceptable on catheter day 1 and 2 only. ? Performed By: #### X M #### [facility] (DEFAULT) [address] [place] [address] Squamous/Epithelial Cells 1/hpf = 1+ Normal 1/hpf = 1+, 2-5/hpf = 2+, 0/hpf = 0+, ABSENT [facility] Comment on above: Order Comment: For i ndwelling catheters, specimen collection is acceptable on catheter day 1 and 2 only. ? Performed By: #### X M #### [facility] (DEFAULT) [address] [address] Urobilinogen Urine 0.2 E.U./dL Normal 0.2 E.U/d L, 1.0 E.U/dL [facility] Comment on above: Order Comment: For i ndwelling catheters, specimen collection is acceptable on catheter day 1 and 2 only. ? Performed By: #### X M #### [facility] (DEFAULT) [address] [place] [address]186 WBC Urine 6-9 Abnormal 0-5 [facility] Comment on above: Order Comment: For i ndwelling catheters, specimen collection is acceptable on catheter day 1 and 2 only. ? Performed By: #### X M #### [facility] (DEFAULT) [address] [address] URINE CULTUREon 01-09-2022 Bacteria identified Cx Nom (U) No Growth Normal [facility] Comment on above: Order Comment: For [...] ? Performed By: #### X M #### [facility] (DEFAULT) [address] [address] XR ABDOMEN 1 VIEW PORTABLEon 01-09-2022 XR [...] the orogastric tube in the stomach. Normal [facility] XR Abdomen Single viewon RADIOLOGY RADIOLOGY [facility] XR Abdomen Single viewOrdere d By: Hilaria Galeana on 01-09-2022 [facility] Work Phone: XR CHEST PORTABLEon 01-10-20 XR [...] unremarkable. IMPRESSION: No acute cardiopulmonary disease Normal [facility] XR CHEST PORTABLE EXAM: XR CHEST PORTABLE, [...] approximately 2.6 cm from the claude. Normal [facility] ABORH TYPE RECONFIRMATIONon 01-08-2022 ABO/RH(D) TYPE Positive Normal [facility] Comment on above: Result Comment: @01/23 21:51 by EB1: Performed By: #### T YPEC #### [facility] (DEFAULT) [address] [place] [address] ALCOHOL (ETHANOL),BLOODon Alcohol, Serum <10 Normal <10 [facility] Comment on above: Order Comment: For i ndwelling catheters, specimen collection is acceptable on catheter day 1 and 2 only. ? Performed By: #### U [id number] #### [facility] (DEFAULT) [address] [place] [address] Ethanol [Mass/Vol] Not detected Normal [facility] Comment on above: Order Comment: For i ndwelling catheters, specimen collection is acceptable on catheter day 1 and 2 only. ? Performed By: #### U [id number] #### [facility] (DEFAULT) [address] [place] [address]4727 BETA HCG, QUAL, BLOODon 07- HCG (Qual) Serum Negative Normal Negative [facility] Comment on above: Performed By: #### U [id number] #### [facility] (DEFAULT) [address] [place] [address] CALCIUMon 01-08-2022 Calcium [Mass/Vol] 7.7 mg/dL Low 8.6-10.5 [facility] Comment on above: Performed By: #### L [id number] #### [facility] (DEFAULT) [address] [place] [address] CBC AND ELECTRONIC DIFFon Basophils (Bld) [#/Vol] 10*3/uL Normal 0.00-0.15 [facility] Comment on above: Performed By: #### I PB, CHM7, MGO #### [facility] (DEFAULT) [address] [place] [address] 88745 Basophils/100 WBC (Bld) 0.3 % Normal [facility] Comment on above: Performed By: #### I PB, CHM7, MGO #### [facility] (DEFAULT) [address] [place] [address]007 DIFF STATUS Electronic Differential Normal [facility] Comment on above: Performed By: #### I PB, CHM7, MGO #### [facility] (DEFAULT) [address] [place] [address]3072 Eosinophils (Bld) [#/Vol] 10*3/uL Normal 0.00-0.42 [facility] Comment on above: Performed By: #### I PB, CHM7, MGO #### [facility] (DEFAULT) [address] [place] [address]239 Eosinophils/100 WBC (Bld) 0.1 % Normal [facility] Comment on above: Performed By: #### I PB, CHM7, MGO #### [facility] (DEFAULT) [address] [place] [address]8466 Hematocrit (Bld) [Volume fraction] 21.2 % Low 34.9-44.3 [facility] Comment on above: Performed By: #### I PB, CHM7, MGO #### [facility] (DEFAULT) [address] [place] [address] Hemoglobin (Bld) [Mass/Vol] 6.9 g/dL Critically low 11.4-15.2 [facility] Comment on above: Result Comment: This result has been called to MARCUS BALDERRAMA RN by Dionicio Anguiano on 01 08 2022 at 2037, and has been read back. Performed By: #### I PB, CHM7, MGO #### [facility] (DEFAULT) [address] [place] [address]2678 Immature Grans % 0.4 % Normal [facility] Comment on above: Performed By: #### I PB, CHM7, MGO #### [facility] (DEFAULT) [address] [place] [address]604 Immature Grans Absolute 0.04 K/uL Normal <=0.08 [facility] Comment on above: Performed By: #### I PB, CHM7, MGO #### [facility] (DEFAULT) [address] [place] [address]605 Lymphocytes (Bld) [#/Vol] 1.62 10*3/uL Normal 1.16-3.51 [facility] Comment on above: Performed By: #### I PB, CHM7, MGO #### [facility] (DEFAULT) [address] [place] [address] 73786 Lymphocytes/100 WBC (Bld) 17.8 % Normal [facility] Comment on above: Performed By: #### I PB, CHM7, MGO #### [facility] (DEFAULT) [address] [place] [address]8935 MCV (RBC) [Entitic vol] 88.0 fL Normal 79.6-97.7 [facility] Comment on above: Performed By: #### I PB, CHM7, MGO #### [facility] (DEFAULT) [address] [place] [address] 08587 Mean Cell Hgb 28.6 pg Normal 25.9-33.9 [facility] Comment on above: Performed By: #### I PB, CHM7, MGO #### [facility] (DEFAULT) [address] [place] [address] 97415 Mean Cell Hgb Conc 32.5 g/dL Normal 31.4-35.9 [facility] Comment on above: Performed By: #### I PB, CHM7, MGO #### [facility] (DEFAULT) [address] [place] [address] 16442 Monocytes (Bld) [#/Vol] 0.98 10*3/uL High 0.22-0.87 [facility] Comment on above: Performed By: #### I PB, CHM7, MGO #### [facility] (DEFAULT) [address] [place] [address] 15785 Monocytes/100 WBC (Bld) 10.8 % Normal [facility] Comment on above: Performed By: #### I PB, CHM7, MGO #### [facility] (DEFAULT) [address] [place] [address] 96618 Nucleated RBC 0.0 /100 WBC Normal <=0.2 [facility] Comment on above: Performed By: #### I PB, CHM7, MGO #### [facility] (DEFAULT) [address] [place] [address] 59487 Platelet mean volume (Bld) [Entitic vol] 9.1 fL Normal 8.5-12.2 [facility] Comment on above: Performed By: #### I PB, CHM7, MGO #### [facility] (DEFAULT) [address] [place] [address] 97858 Platelets (Bld) [#/Vol] 219 10*3/uL Normal 150-393 [facility] Comment on above: Performed By: #### I PB, CHM7, MGO #### [facility] (DEFAULT) [address] [place] [address] 67438 RBC (Bld) [#/Vol] 2.41 10*6/uL Low 3.91-5.04 [facility] Comment on above: Performed By: #### I PB, CHM7, MGO #### [facility] (DEFAULT) [address] [place] [address] 74300 RBC Distribution 13.2 % Normal 10.8-14.9 [facility] Comment on above: Performed By: #### I PB, CHM7, MGO #### [facility] (DEFAULT) [address] [place] [address] 33253 Segs + Bands Auto 70.6 % Normal [facility] Comment on above: Performed By: #### I PB, CHM7, MGO #### [facility] (DEFAULT) [address] [place] [address] 25560 Segs + Bands,Absolute Auto 6.40 K/uL Normal 1.64-7.28 [facility] Comment on above: Performed By: #### I [id number], MGO #### [facility] (DEFAULT) [address] [place] [address] WBC (Bld) [#/Vol] 9.08 10*3/uL Normal 3.99-11.19 [facility] Comment on above: Performed By: #### I PB, HARJEETMDany, MGO #### [facility] (DEFAULT) [address] [place] [address] Basophils (Bld) [#/Vol] 10*3/uL Normal 0.00-0.15 [facility] Comment on above: Performed By: #### L [id number] ####[facility] (DEFAULT)[address] [place] [address]53 Basophils/100 WBC (Bld) 0.3 % Normal [facility] Comment on above: Performed By: #### L [id number] ####[facility] (DEFAULT)[address] [place] [address]45 DIFF STATUS Electronic Differential Normal [facility] Comment on above: Performed By: #### L [id number] ####[facility] (DEFAULT)[address] [place] [address]20 Eosinophils (Bld) [#/Vol] 10*3/uL Normal 0.00-0.42 [facility] Comment on above: Performed By: #### L [id number] ####[facility] (DEFAULT)[address] [place] [address]24 Eosinophils/100 WBC (Bld) 0.2 % Normal [facility] Comment on above: Performed By: #### L [id number] ####[facility] (DEFAULT)[address] [place] [address] Hematocrit (Bld) [Volume fraction] 22.5 % Low 34.9-44.3 [facility] Comment on above: Performed By: #### L [id number] ####[facility] (DEFAULT)[address] [place] [address], [place] [id number] Hemoglobin (Bld) [Mass/Vol] 7.1 g/dL Low 11.4-15.2 [facility] Comment on above: Performed By: #### L [id number] ####[facility] (DEFAULT)[address] [facility] [place] [address] Immature Grans % 0.6 % Normal [facility] Comment on above: Performed By: #### L [id number] ####[facility] (DEFAULT)[address] [place] [address], [place] [id number] Immature Grans Absolute 0.04 K/uL Normal <=0.08 [facility] Comment on above: Performed By: #### L [id number] ####[facility] (DEFAULT)[address] [place] [address] Lymphocytes (Bld) [#/Vol] 1.05 10*3/uL Low 1.16-3.51 [facility] Comment on above: Performed By: #### L [id number] ####[facility] (DEFAULT)[address] [place] [address]958 Lymphocytes/100 WBC (Bld) 16.4 % Normal [facility] Comment on above: Performed By: #### L [id number] ####[facility] (DEFAULT)[address] [place] [address]6737 MCV (RBC) [Entitic vol] 92.6 fL Normal 79.6-97.7 [facility] Comment on above: Performed By: #### L [id number] ####[facility] (DEFAULT)[address] [place] [address] 14142 Mean Cell Hgb 29.2 pg Normal 25.9-33.9 [facility] Comment on above: Performed By: #### L [id number] ####[facility] (DEFAULT)[address] [place] [address] Mean Cell Hgb Conc 31.6 g/dL Normal 31.4-35.9 [facility] Comment on above: Performed By: #### L [id number] ####[facility] (DEFAULT)[address] [place] [address] Mean Platelet Volume Normal [facility] Comment on above: Result Comment: Not measured Performed By: #### L [id number] ####[facility] (DEFAULT)[address] [place] [place] [address] Monocytes (Bld) [#/Vol] 0.48 10*3/uL Normal 0.22-0.87 [facility] Comment on above: Performed By: #### L [id number] ####[facility] (DEFAULT)[address] [place] [address] Monocytes/100 WBC (Bld) 7.5 % Normal [facility] Comment on above: Performed By: #### L [id number] ####[facility] (DEFAULT)[address] [place] [address] Nucleated RBC 0.0 /100 WBC Normal <=0.2 [facility] Comment on above: Performed By: #### L [id number] ####[facility] (DEFAULT)[address] [place] [address] Platelets (Bld) [#/Vol] 64 10*3/uL Low 150-393 [facility] Comment on above: Result Comment: Auto mated platelet count confirmed by manual slide review. This is an appended report. These results have been appended to a previously preliminary verified report. Performed By: #### L [id number] ####[facility] (DEFAULT)[address] [place] [address] RBC (Bld) [#/Vol] 2.43 10*6/uL Low 3.91-5.04 [facility] Comment on above: Performed By: #### L [id number] ####[facility] (DEFAULT)[address] [facility] [place] [address] RBC Distribution 12.8 % Normal 10.8-14.9 [facility] Comment on above: Performed By: #### L [id number] ####[facility] (DEFAULT)[address] [facility] [place] [address] Segs + Bands Auto 75.0 % Normal [facility] Comment on above: Performed By: #### L [id number] ####[facility] (DEFAULT)[address] [facility] [place] [address] Segs + Bands,Absolute Auto 4.81 K/uL Normal 1.64-7.28 [facility] Comment on above: Performed By: #### L [id number] ####[facility] (DEFAULT)[address] [place] [address]70 WBC (Bld) [#/Vol] 6.41 10*3/uL Normal 3.99-11.19 [facility] Comment on above: Performed By: #### L [id number] ####[facility] (DEFAULT)[address] [place] [address] CHEM 7 (LYTES,BUN,CREA,GLUC) on 01-08-2022 Anion gap [Moles/Vol] 16 mmol/L Normal 7-17 [facility] Comment on above: Performed By: #### U [id number] #### [facility] (DEFAULT) [address] [place] [address]6841 Chloride [Moles/Vol] 103 mmol/L Normal 98-108 [facility] Comment on above: Performed By: #### U [id number] #### [facility] (DEFAULT) [address] [place] [address] 86899 CO2 [Moles/Vol] 26 mmol/L Normal 21-31 [facility] Comment on above: Performed By: #### U [id number] #### [facility] (DEFAULT) [address] [place] [address] 72042 Creatinine [Mass/Vol] 0.60 mg/dL Normal 0.50-1.20 [facility] Comment on above: Performed By: #### U [id number] #### U [facility] (DEFAULT) [address] [place] [address] 03714 eGFR, CKD-EPI, Female >90 Normal >=60 [facility] Comment on above: Result Comment: Repo rted eGFR is based on the CKD-EPI 2020 equation using creatinine, age, and sex. Performed By: #### U [id number] #### [facility] (DEFAULT) [address] [place] [address] 14194 Glucose [Mass/Vol] 106 mg/dL High 70-99 [facility] [facility] Comment on above: Performed By: #### U [id number] #### [facility] (DEFAULT) [address] [place] [address]198 Osmolality [Osmolality] 297 mosm/kg Normal 278-305 [facility] Comment on above: Performed By: #### U [id number] #### [facility] (DEFAULT) [address] [place] [address] 40232 Potassium [Moles/Vol] 3.8 mmol/L Normal 3.5-5.0 [facility] Comment on above: Performed By: #### U [id number] #### [facility] (DEFAULT) [address] [place] [address] 99588 Sodium [Moles/Vol] 141 mmol/L Normal 135-145 [facility] Comment on above: Performed By: #### U [id number] #### [facility] (DEFAULT) [address] [place] [address] 69954 Urea nitrogen [Mass/Vol] 20 mg/dL Normal 7-25 [facility] Comment on above: Performed By: #### U [id number] #### [facility] (DEFAULT) [address] [place] [address] 85591 Urea nitrogen/Creatinine [Mass ratio] 33 mg/mg Normal [facility] Comment on above: Performed By: #### U [id number] #### [facility] (DEFAULT) [address] [place] [address] 60487 CHM 7 - EDon 01-08-2022 Anion gap [Moles/Vol] 12 mmol/L Normal 7-17 [facility] Comment on above: Performed By: #### U [id number] #### [facility] (DEFAULT) [address] [place] [address] 41637 Chloride [Moles/Vol] 104 mmol/L Normal 98-108 [facility] Comment on above: Performed By: #### U [id number] #### [facility] (DEFAULT) [address] [place] [address] 00502 CO2 [Moles/Vol] 25 mmol/L Normal 21-31 [facility] Comment on above: Performed By: #### U [id number] #### [facility] (DEFAULT) [address] [place] [address] 95026 Creatinine [Mass/Vol] 0.67 mg/dL Normal 0.50-1.20 [facility] Comment on above: Performed By: #### U [id number] #### [facility] (DEFAULT) [address] [place] [address] 36827 eGFR, CKD-EPI, Female >90 Normal >=60 [facility] Comment on above: Result Comment: Repo rted eGFR is based on the CKD-EPI 2020 equation using creatinine, age, and sex. Performed By: #### U [id number] #### [facility] (DEFAULT) [address] [place] [address] 55597 Glucose [Mass/Vol] 88 mg/dL Normal 70-99 [facility] Comment on above: Performed By: #### U [id number] #### [facility] (DEFAULT) [address] [place] [address] 51890 Osmolality [Osmolality] 291 mosm/kg Normal 278-305 [facility] Comment on above: Performed By: #### U [id number] #### [facility] (DEFAULT) [address] [place] [address] 32083 Potassium [Moles/Vol] 3.9 mmol/L Normal 3.5-5.0 [facility] Comment on above: Performed By: #### U [id number] #### [facility] (DEFAULT) [address] [place] [address] 71583 Sodium [Moles/Vol] 137 mmol/L Normal 135-145 [facility] Comment on above: Performed By: #### U [id number] #### [facility] (DEFAULT) [address] [place] [address] 29710 Urea nitrogen [Mass/Vol] 25 mg/dL Normal 7-25 [facility] Comment on above: Performed By: #### U [id number] #### [facility] (DEFAULT) [address] [place] [address] 31874 Urea nitrogen/Creatinine [Mass ratio] 37 mg/mg Normal [facility] Comment on above: Performed By: #### U [id number] #### [facility] (DEFAULT) [address] [place] [address] 94696 CKon 01-08-2022 CK [Catalytic activity/Vol] 132 U/L Normal 30-184 [facility] Comment on above: Performed By: #### U [id number] #### [facility] (DEFAULT) [address] [place] [address] ABDOMEN/PELVIS WITH CONTR AST VASCULAR TRAUMAon [...] reviewed and approved by David Diego MD, MBBS. CONTRAST: Iopamidol (370 mg/mL) (ISOVUE) 76 % [...] or pe (more content not included)... Normal [facility] CT CHEST WITH CONTRAST VASCU LAR TRAUMAon [...] Lyon MD on 01/08/2022 3:37 PM. Normal [facility] CT FACIAL WITHOUT CONTRASTon 01-08-2022 CT FACIAL [...] No evidence of facial bone fracture. Normal [facility] CT HEAD WITHOUT CONTRASTon 0 01-08-2022 CT [...] Nelson Carmona on 01/08/2022 3:25 PM. Normal [facility] CT SPINE CERVICAL WITHOUT CO NTRASTon 01-08-2022 [...] 2. Mild cervical spondylosis, as above. Normal [facility] CT SPINE LUMBAR WITHOUT CONT RASTon 01-08-2022 [...] or dislocation of the lumbosacral spine. Normal [facility] CT SPINE THORACIC WITHOUT CO NTRASTon 01-08-2022 [...] 3. Mild thoracic spondylosis, as above. Normal [facility] DRUGS OF ABUSE SCREEN 10, UR INEon 01-08-2022 Amphetamine/Methampheta mine Negative Normal Cutoff: 500 ng/mL [facility] Comment on above: Order Comment: For m edical purposes only. Positive results are unconfirmed unless otherwise noted. Performed By: #### I PB, CHM7, MGO #### [facility] (DEFAULT) [address] [place] [address] Barbiturates Negative Normal Cutoff: 200 ng/mL [facility] Comment on above: Order Comment: For m edical purposes only. Positive results are unconfirmed unless otherwise noted. Performed By: #### I PB, CHM7, MGO #### [facility] (DEFAULT) [address] [address] Benzodiazepines Negative Normal Cutoff: 200 ng/mL [facility] Comment on above: Order Comment: For m edical purposes only. Positive results are unconfirmed unless otherwise noted. Performed By: #### I PB, CHM7, MGO #### [facility] (DEFAULT) [address] [address] Buprenorphine Negative Normal Cutoff: 5 ng/mL [facility] Comment on above: Order Comment: For m edical purposes only. Positive results are unconfirmed unless otherwise noted. Performed By: #### I PB, CHM7, MGO #### [facility] (DEFAULT) [address] [address] Cannabinoids Screen Ql (U) Negative Normal Cutoff: 50 ng/mL [facility] Comment on above: Order Comment: For edical purposes only. Positive results are unconfirmed unless otherwise noted. Performed By: #### I PB, CHM7, MGO #### [facility] (DEFAULT) [address] [address] Cocaine Negative Normal Cutoff: 150 ng/mL [facility] Comment on above: Order Comment: For m edical purposes only. Positive results are unconfirmed unless otherwise noted. Performed By: #### I PB, CHM7, MGO #### [facility] (DEFAULT) [address] [address] Fentanyl Negative Normal Cutoff: 1 ng/mL [facility] Comment on above: Order Comment: For m edical purposes only. Positive results are unconfirmed unless otherwise noted. Performed By: #### I PB, CHM7, MGO #### [facility] (DEFAULT) [address] [address] Methadone Negative Normal Cutoff: 300 ng/mL [facility] Comment on above: Order Comment: For m edical purposes only. Positive results are unconfirmed unless otherwise noted. Performed By: #### I PB, CHM7, MGO #### [facility] (DEFAULT) [address] [address] Opiates Positive Abnormal Cutoff: 300 ng/mL [facility] Comment on above: Order Comment: For m edical purposes only. Positive results are unconfirmed unless otherwise noted. Performed By: #### I PB, CHM7, MGO #### [facility] (DEFAULT) [address] [address] Oxycodone Negative Normal Cutoff: 100 ng/mL [facility] Comment on above: Order Comment: For edical purposes only. Positive results are unconfirmed unless otherwise noted. Performed By: #### I PB, CHM7, MGO #### [facility] (DEFAULT) [address] [address] HEPATITIS B SURFACE ANTIGENo n 01-08-2022 Hepatitis B Surface Ag Negative Normal Negative [facility] Comment on above: Performed By: #### L [id number] #### [facility] (DEFAULT) [address] [address] HEPATITIS C ANTIBODYon 01-08 Hepatitis C Antibody Negative Normal Negative [facility] Comment on above: Order Comment: Three serum separators are necessary for this test.Lab accession under [id number] Performed By: #### X M #### [facility] (DEFAULT) [address] [address] HIGH SENSITIVITY TROPONIN I - SINGLE ORDERon 01-08-2022 hs-Troponin I 16 ng/L Normal <34 [facility] Comment on above: Order Comment: For i ndwelling catheters, specimen collection is acceptable on catheter day 1 and 2 only. ? Performed By: #### U [id number] #### [facility] (DEFAULT) [address] [address] LIPID PANEL WITH REFLEX TO M EASURED LDLon 01-08-2022 Calculated LDL Cholesterol 31 mg/dL Normal 0-99 [facility] Comment on above: Result Comment: [<10 0 mg/dL: Optimal] [100-129 mg/dL: Near Optimal] [130-159 mg/dL: Borderline High] [160-189 mg/dL: High] [>189 mg/dL: Very High] Performed By: #### U [id number] #### [facility] (DEFAULT) [address] [place] [address] 85876 Cholesterol [Mass/Vol] 91 mg/dL Normal <200 [facility] Comment on above: Result Comment: [<20 0 mg/dL: Desirable] [200-239 mg/dL: Borderline High] [>239 mg/dL: High] Performed By: #### U [id number] #### [facility] (DEFAULT) [address] [place] [address] 13164 Cholesterol in HDL [Mass/Vol] 37 mg/dL Low >=40 [facility] Comment on above: Result Comment: [<40 mg/dL: Low (High Risk)] [>59 mg/dL: High (Low Risk)] Performed By: #### U [id number] #### [facility] (DEFAULT) [address] [place] [address] 64766 Non HDL Cholesterol 54 mg/dL Normal <130 [facility] Comment on above: Performed By: #### U [id number] #### [facility] (DEFAULT) [address] [place] [address] 04552 Total Cholesterol/HDL Ratio 2.5 Normal <4.5 [facility] Comment on above: Performed By: #### U [id number] #### [facility] (DEFAULT) [address] [place] [address] 48792 Triglyceride [Mass/Vol] 114 mg/dL Normal <150 [facility] Comment on above: Result Comment: [<15 0 mg/dL: Desirable] [150-199 mg/dL: Borderline] [200-499 mg/dL: High] [>500 mg/dL: Very High] Performed By: #### U [id number] #### [facility] (DEFAULT) [address] [place] [address] 11000 MAGNESIUMon 01-08-2022 Magnesium [Mass/Vol] 1.6 mg/dL Normal 1.6-2.6 [facility] Comment on above: Performed By: #### U [id number] #### [facility] (DEFAULT) [address] [place] [address] 18364 PHOSPHATE, INORGANICon 01-08 Phosphorous 2.1 mg/dL Low 2.2-4.6 [facility] Comment on above: Performed By: #### U [id number] #### [facility] (DEFAULT) [address] [place] [address] 93737 PROTIME-INRon 01-08-2022 INR Coag (PPP) [Relative time] 1.3 {INR} High 0.9-1.1 [facility] Comment on above: Performed By: #### X M #### [facility] (DEFAULT) [address] [place] [address] 19875 PT Coag (PPP) [Time] 15.5 s High 11.9-14.2 [facility] Comment on above: Performed By: #### X M #### [facility] (DEFAULT) [address] [place] [address] 31490 PT,INR,PTTon 01-08-2022 aPTT Coag (Bld) [Time] 27.3 s Normal 24.0-34.3 [facility] Comment on above: Performed By: #### T YPEC #### [facility] (DEFAULT) [address] [place] [address] 99381 INR Coag (PPP) [Relative time] 1.2 {INR} High 0.9-1.1 [facility] Comment on above: Performed By: #### T YPEC #### [facility] (DEFAULT) [address] [place] [address] 60110 PT Coag (PPP) [Time] 15.0 s High 11.9-14.2 [facility] Comment on above: Performed By: #### T YPEC #### [facility] (DEFAULT) [address] [place] [address] 98[address] RAPID HIV-1/HIV-2 AB WITH P2 4 ANTIGENon 01-08-2022 Rapid HIV-1/HIV-2 AB Non-Reactive Normal Non Reactive [facility] Comment on above: Order Comment: Three serum separators are necessary for this test.Lab accession under [id number] Performed By: #### X M #### [facility] (DEFAULT) [address] [place] [address] 77773 Rapid P24 Antigen Non-Reactive Normal Non Reactive [facility] Comment on above: Order Comment: Three serum separators are necessary for this test.Lab accession under [id number] Performed By: #### X M #### [facility] (DEFAULT) [address] [place] [address] 02464 TYPE AND SCREENon 01-08-2022 ABO/RH(D) TYPE Positive Normal [facility] Comment on above: Performed By: #### X M #### [facility] (DEFAULT) [address] [place] [address] 80100 CBC W Auto Differential pane l (Bld)on 11-03-2021 Abs Immature Gran 0.04 k/uL <0.10 k/uL [facility] Basophils (Bld) [#/Vol] 0.04 10*3/uL <0.11 k/uL [facility] Basophils/100 WBC (Bld) 0.6 % [facility] Differential cell count method Nom (Bld) Auto [facility] Eosinophils (Bld) [#/Vol] 0.13 10*3/uL <0.46 k/uL [facility] Eosinophils/100 WBC (Bld) 1.8 % [facility] Erythrocyte distribution width (RBC) [Ratio] 14.6 % 11.5 - 15.0 % [facility] Hematocrit (Bld) [Volume fraction] 34.1 % Low 36.0 - 46.0 % [facility] Hemoglobin (Bld) [Mass/Vol] 10.7 g/dL Low 11.5 - 15.5 g/dL [facility] Immature Gran % 0.6 % [facility] Lymphocytes (Bld) [#/Vol] 2.16 10*3/uL 1.00 - 4.00 k/uL [facility] Lymphocytes/100 WBC (Bld) 30.0 % [facility] MCH (RBC) [Entitic mass] 30.6 pg 26.0 - 34.[address] [facility] MCHC (RBC) [Mass/Vol] 31.4 g/dL 30.5 - 36.0 g/dL [facility] MCV (RBC) [Entitic vol] 97.4 fL 80.0 - 100.[address] [facility] Monocytes (Bld) [#/Vol] 0.68 10*3/uL <0.87 k/uL [facility] Monocytes/100 WBC (Bld) 9.4 % [facility] Neutrophils (Bld) [#/Vol] 4.15 10*3/uL 1.45 - 7.50 k/uL [facility] Neutrophils/100 WBC (Bld) 57.6 % [facility] Nucleated RBC (Bld) [#/Vol] 10*3/uL <0.01 k/uL [facility] Nucleated RBC/100 WBC (Bld) [Ratio] 0.0 /[address] [facility] Platelet mean volume (Bld) [Entitic vol] 10.4 fL 9.0 - 12.[address] [facility] Platelets (Bld) [#/Vol] 267 10*3/uL 150 - 400 k/uL [facility] RBC (Bld) [#/Vol] 3.50 10*6/uL Low 3.90 - 5.2 0 m/uL [facility] WBC (Bld) [#/Vol] 7.20 10*3/uL 3.70 - 11. 00 k/uL [facility] CMP (EXTERNAL)on 10-10-2021 Albumin [Mass/Vol] 2.2 g/dL Abnormal 3.2 - 4.6 gm/dL [facility] Alk Phos Total 81 U/L 45 - 117 U/L [facility] ALT [Catalytic activity/Vol] 14 U/L 12 - 78 U/L [facility] AST [Catalytic activity/Vol] 10 U/L 8 - 37 U/L [facility] Bili Total 0.20 mg/dL 0.2 - 1 mg/dL [facility] Calcium [Mass/Vol] 8.7 mg/dL 8.5 - 10. 1 mg/dL [facility] Chloride [Moles/Vol] 103 mmol/L 98 - 10 7 MEQ/L [facility] CO2 [Moles/Vol] 37.0 mmol/L Abnormal 21 - 32 MEQ/L [facility] Creatinine [Mass/Vol] 0.068 mg/dL Abnormal 0.6 - 1.3 MG/DL [facility] GFR AFR AMER 110 mL/MIN [facility] GFR/1.73 sq M.predicted among non-blacks MDRD (S/P/Bld) [Vol rate/Area] 91 mL/min/{1.73_m2} [facility] Glucose [Mass/Vol] 112 mg/dL Abnormal 74 - 106 MG/DL [facility] Potassium [Moles/Vol] 3.6 mmol/L 3.5 - 5.1 mmol/L [facility] Protein [Mass/Vol] 5.9 g/dL Abnormal 6.4 - 8.2 gm/dL [facility] Sodium [Moles/Vol] 141 mmol/L 136 - 145 mmol/L [facility] Urea nitrogen [Mass/Vol] 7 mg/dL 7 - 18 MG/DL [facility] Calcium,Ionizedon 02-12-2017 Ionized Ca,Measured 4.60 mg/dL Normal 4.30-5.20 [facility] Comment on above: Performed By: #### H EMDF, ICA, RENL3, MG3, LFT3, TSH4, HIV4, HEPC ####[address] [address] pH, Ionized Calcium 7.43 Normal 7.31-7.46 [facility] Comment on above: Performed By: #### H EMDF, ICA, RENL3, MG3, LFT3, TSH4, HIV4, HEPC ####[address] [address] HIV 1,2 Ab; p24 Agon 017 HIV 1,2 Ab; p24 Ag NONREACTIVE Normal Nonreactive [facility] Comment on above: Result Comment: Resu lts [...] BMP3, MG3, PT, APTT, PHOS3, CRP2, HEMDF ####[place] [address] Hemogram w/ Autodiffon 02-12 Abs Baso Cnt 0.1 10*3/uL Normal 0.0-0.2 [facility] Comment on above: Performed By: #### H EMDF, ICA, RENL3, MG3, LFT3, TSH4, HIV4, HEPC ####[place] [address] Basophils/100 WBC Auto (Bld) 0.5 % Normal [facility] Comment on above: Performed By: #### H EMDF, ICA, RENL3, MG3, LFT3, TSH4, HIV4, HEPC ####[place] [address] Eosinophils 0.3 10*3/uL Normal 0.0-0.5 [facility] Comment on above: Performed By: #### H EMDF, ICA, RENL3, MG3, LFT3, TSH4, HIV4, HEPC ####[place] [address] Eosinophils/100 leukocytes 2.4 % Normal [facility] Comment on above: Performed By: #### H EMDF, ICA, RENL3, MG3, LFT3, TSH4, HIV4, HEPC ####[place] [address] Erythrocyte distribution width Auto Ratio (RBC) 13.5 % Normal 11.5-14.5 [facility] Comment on above: Performed By: #### H EMDF, ICA, RENL3, MG3, LFT3, TSH4, HIV4, HEPC ####[place] [address] Erythrocytes (RBC) 4.84 10*6/uL Normal 3.80-5.20 [facility] Comment on above: Performed By: #### H EMDF, ICA, RENL3, MG3, LFT3, TSH4, HIV4, HEPC ####[address] [address] Granulocytes/100 WBC (Bld) 71.7 % Normal [facility] Comment on above: Performed By: #### H EMDF, ICA, RENL3, MG3, LFT3, TSH4, HIV4, HEPC ####[address] [address] Hematocrit (HCT) 43.2 % Normal 35.0-47.0 [facility] Comment on above: Performed By: #### H EMDF, ICA, RENL3, MG3, LFT3, TSH4, HIV4, HEPC ####[place] [address] Hemoglobin mass conc (Bld) 14.6 g/dL Normal 11.7-16.0 [facility] Comment on above: Performed By: #### H EMDF, ICA, RENL3, MG3, LFT3, TSH4, HIV4, HEPC ####[address] [address] Lymphocytes 1.8 10*3/uL Normal 1.0-4.3 [facility] Comment on above: Performed By: #### H EMDF, ICA, RENL3, MG3, LFT3, TSH4, HIV4, HEPC ####[address] [address] Lymphocytes/100 leukocytes 16.1 % Normal [facility] Comment on above: Performed By: #### H EMDF, ICA, RENL3, MG3, LFT3, TSH4, HIV4, HEPC ####[address] [address] MCH 30.1 pg Normal 26.0-34.0 [facility] Comment on above: Performed By: #### H EMDF, ICA, RENL3, MG3, LFT3, TSH4, HIV4, HEPC ####[address] [address] MCHC mass conc (RBC) 33.7 % Normal 32.0-36.0 [facility] Comment on above: Performed By: #### H EMDF, ICA, RENL3, MG3, LFT3, TSH4, HIV4, HEPC ####[address] [place] [address] MCV 89.3 fL Normal 79.0-98.0 [facility] Comment on above: Performed By: #### H EMDF, ICA, RENL3, MG3, LFT3, TSH4, HIV4, HEPC ####[address] [address] [place] [address] Monocytes 1.0 10*3/uL High 0.0-0.8 [facility] Comment on above: Performed By: #### H EMDF, ICA, RENL3, MG3, LFT3, TSH4, HIV4, HEPC ####[address] [address] Monocytes/100 leukocytes 9.3 % Normal [facility] Comment on above: Performed By: #### H EMDF, ICA, RENL3, MG3, LFT3, TSH4, HIV4, HEPC ####[address] [address] Neutrophils 7.8 10*3/uL High 1.8-7.0 [facility] Comment on above: Performed By: #### H EMDF, ICA, RENL3, MG3, LFT3, TSH4, HIV4, HEPC ####[address] [address] Platelet mean volume (PMV) 8.5 fL Normal 7.4-10.4 [facility] Comment on above: Performed By: #### H EMDF, ICA, RENL3, MG3, LFT3, TSH4, HIV4, HEPC ####[address] [address] Platelets 242 10*3/uL Normal 140-440 [facility] Comment on above: Performed By: #### H EMDF, ICA, RENL3, MG3, LFT3, TSH4, HIV4, HEPC ####[address] [address] WBC (Leukocytes) 10.9 10*3/uL High 3.6-10.7 [facility] Comment on above: Performed By: #### H EMDF, ICA, RENL3, MG3, LFT3, TSH4, HIV4, HEPC ####[address] [address] Hep C Antibodyon 02-12-2017 Hep C Antibody NOT DETECTED Normal Not-Detected [facility] Comment on above: Result Comment: Cori ents with DETECTED Hepatitis C Ab results should have a new specimensubmitted for supplemental testing with a Hepatitis C Quantitative RNA assay(viral load), if clinically indicated. Performed By: #### I CA, LFT3, BMP3, MG3, PT, APTT, PHOS3, CRP2, HEMDF ####[address] [address] [place] [address] Hepatic Functionon 7 Alkaline phosphatase (ALP) 64 U/L Normal 45-117 [facility] Comment on above: Performed By: #### H EMDF, ICA, RENL3, MG3, LFT3, TSH4, HIV4, HEPC ####[address] [address] Protein 7.2 g/dL Normal 6.4-8.2 [facility] Comment on above: Performed By: #### H EMDF, ICA, RENL3, MG3, LFT3, TSH4, HIV4, HEPC ####[address] [address] Alanine aminotransferase (ALT) 51 U/L Normal 12-78 [facility] Comment on above: Performed By: #### H EMDF, ICA, RENL3, MG3, LFT3, TSH4, HIV4, HEPC ####[address] [address] Bilirubin (total) 0.6 mg/dL Normal 0.2-1.0 [facility] Comment on above: Performed By: #### H EMDF, ICA, RENL3, MG3, LFT3, TSH4, HIV4, HEPC ####[address] [address] Aspartate aminotransferase (AST) 32 U/L Normal 15-37 [facility] Comment on above: Performed By: #### H EMDF, ICA, RENL3, MG3, LFT3, TSH4, HIV4, HEPC ####[address] [address] Bilirubin (direct) 0.2 mg/dL Normal 0.0-0.2 [facility] Comment on above: Performed By: #### H EMDF, ICA, RENL3, MG3, LFT3, TSH4, HIV4, HEPC ####[place] [address] Magnesiumon 02-12-2017 Magnesium 2.0 mg/dL Normal 1.8-2.4 [facility] Comment on above: Performed By: #### H EMDF, ICA, RENL3, MG3, LFT3, TSH4, HIV4, HEPC ####[place] [address] Renal Functionon 02-12-2017 Phosphate 2.2 mg/dL Low 2.5-4.9 [facility] Comment on above: Performed By: #### H EMDF, ICA, RENL3, MG3, LFT3, TSH4, HIV4, HEPC ####[place] [address] Anion gap 7 mmol/L Normal [facility] Comment on above: Performed By: #### H EMDF, ICA, RENL3, MG3, LFT3, TSH4, HIV4, HEPC ####[place] [address] Creatinine 0.58 mg/dL Normal 0.55-1.40 [facility] Comment on above: Performed By: #### H EMDF, ICA, RENL3, MG3, LFT3, TSH4, HIV4, HEPC ####[place] [address] eGFR (black) mL/min/{1.73_m2} Normal >60 [facility] Comment on above: Performed By: #### H EMDF, ICA, RENL3, MG3, LFT3, TSH4, HIV4, HEPC ####[address] [place] [address] eGFR (non-black) mL/min/{1.73_m2} Normal >60 [facility] Comment on above: Result Comment: Sour ce- MDRD equation with creatinine calibration to IDMS(NKDEP)eGFR not recommended for drug dose adjustment Performed By: #### H EMDF, ICA, RENL3, MG3, LFT3, TSH4, HIV4, HEPC ####[address] [place] [address] Albumin 3.4 g/dL Normal 3.4-5.0 [facility] Comment on above: Performed By: #### H EMDF, ICA, RENL3, MG3, LFT3, TSH4, HIV4, HEPC ####[address] [address] Urea nitrogen 9 mg/dL Normal 7-25 [facility] Comment on above: Performed By: #### H EMDF, ICA, RENL3, MG3, LFT3, TSH4, HIV4, HEPC ####[address] [address] Calcium 9.1 mg/dL Normal 8.2-10.1 [facility] Comment on above: Performed By: #### H EMDF, ICA, RENL3, MG3, LFT3, TSH4, HIV4, HEPC ####[address] [address] Glucose mass conc 113 mg/dL High 70-100 [facility] Comment on above: Performed By: #### H EMDF, ICA, RENL3, MG3, LFT3, TSH4, HIV4, HEPC ####[address] [address] CO2 30 mmol/L Normal 21-32 [facility] Comment on above: Performed By: #### H EMDF, ICA, RENL3, MG3, LFT3, TSH4, HIV4, HEPC ####[address] [place] [address] Chloride 104 mmol/L Normal 98-109 [facility] Comment on above: Performed By: #### H EMDF, ICA, RENL3, MG3, LFT3, TSH4, HIV4, HEPC ####[place] [address] Potassium molar conc 3.6 mmol/L Normal 3.5-5.1 [facility] Comment on above: Performed By: #### H EMDF, ICA, RENL3, MG3, LFT3, TSH4, HIV4, HEPC ####[place] [address] Sodium 141 mmol/L Normal 135-145 [facility] Comment on above: Performed By: #### H EMDF, ICA, RENL3, MG3, LFT3, TSH4, HIV4, HEPC ####[place] [address] Thyroid Stim. Hormoneon 02-02 Thyroid Stim. Hormone 3.390 uU/mL Normal 0.358-3.740 [facility] Comment on above: Performed By: #### I CA, LFT3, BMP3, MG3, PT, APTT, PHOS3, CRP2, HEMDF ####[place] [address] APTTon 02-11-2017 aPTT 23.3 s Normal 20.0-30.5 [facility] Comment on above: Result Comment: NOTE : The therapeutic time for Heparin anticoagulation,based on Xa activity inhibition, is an APTT of 46-80seconds. Performed By: #### I CA, LFT3, BMP3, MG3, PT, APTT, PHOS3, CRP2, HEMDF ####[place] [id number] Basic Metabolic Panelon 02-02 Anion gap 5 mmol/L Normal [facility] Comment on above: Performed By: #### I CA, LFT3, BMP3, MG3, PT, APTT, PHOS3, CRP2, HEMDF ####[place] [address] Creatinine 0.64 mg/dL Normal 0.55-1.40 [facility] Comment on above: Performed By: #### I CA, LFT3, BMP3, MG3, PT, APTT, PHOS3, CRP2, HEMDF ####[place] [address] eGFR (black) mL/min/{1.73_m2} Normal >60 [facility] Comment on above: Performed By: #### I CA, LFT3, BMP3, MG3, PT, APTT, PHOS3, CRP2, HEMDF ####[place] [address] [place] [address] eGFR (non-black) mL/min/{1.73_m2} Normal >60 [facility] Comment on above: Result Comment: Sour ce- MDRD equation with creatinine calibration to IDMS(NKDEP)eGFR not recommended for drug dose adjustment Performed By: #### I CA, LFT3, BMP3, MG3, PT, APTT, PHOS3, CRP2, HEMDF ####[place] [address] Glucose mass conc 115 mg/dL High 70-100 [facility] Comment on above: Performed By: #### I CA, LFT3, BMP3, MG3, PT, APTT, PHOS3, CRP2, HEMDF ####[place] [address] Calcium 9.0 mg/dL Normal 8.2-10.1 [facility] Comment on above: Performed By: #### I CA, LFT3, BMP3, MG3, PT, APTT, PHOS3, CRP2, HEMDF ####[place] [address] CO2 30 mmol/L Normal 21-32 [facility] Comment on above: Performed By: #### I CA, LFT3, BMP3, MG3, PT, APTT, PHOS3, CRP2, HEMDF ####[place] [address] Urea nitrogen 8 mg/dL Normal 7-25 [facility] Comment on above: Performed By: #### I CA, LFT3, BMP3, MG3, PT, APTT, PHOS3, CRP2, HEMDF ####[address] [place] [address] Chloride 105 mmol/L Normal 98-109 [facility] Comment on above: Performed By: #### I CA, LFT3, BMP3, MG3, PT, APTT, PHOS3, CRP2, HEMDF ####[address] [address] Potassium molar conc 3.4 mmol/L Low 3.5-5.1 [facility] Comment on above: Performed By: #### I CA, LFT3, BMP3, MG3, PT, APTT, PHOS3, CRP2, HEMDF ####[place] [address] [place] [address] Sodium 140 mmol/L Normal 135-145 [facility] Comment on above: Performed By: #### I CA, LFT3, BMP3, MG3, PT, APTT, PHOS3, CRP2, HEMDF ####[address] [address] C-Reactive Proteinon 017 C reactive protein (CRP) 6.9 mg/L High 0.0-2.9 [facility] Comment on above: Result Comment: . Performed By: #### I CA, LFT3, BMP3, MG3, PT, APTT, PHOS3, CRP2, HEMDF ####[address] [address] CR Chest Portableon 02-12-20 17 CR Chest Portable Patient Name: LUIZA SERRATO Diagnostic Radiology Exam Date/Time 02/11/2017 06:40:48 EDT Exam CR Chest Portable Ordering Physician JAMES MCDONALD AMBER A Accession Number [id number] CPT4 Codes 51220 () Reason For Exam respiratory distress Report [...] Transcribed Date and Time: 02/11/2017 5:39 Normal [facility] Calcium,Ionizedon 02-11-2017 Ionized Ca,Measured 4.20 mg/dL Low 4.30-5.20 [facility] Comment on above: Performed By: #### I CA, LFT3, BMP3, MG3, PT, APTT, PHOS3, CRP2, HEMDF ####[place] [address] pH, Ionized Calcium 7.48 High 7.31-7.46 [facility] Comment on above: Performed By: #### I CA, LFT3, BMP3, MG3, PT, APTT, PHOS3, CRP2, HEMDF ####[address] [address] Hemoglobin A1Con 02-11-2017 Glucose mass conc 111 mg/dL Normal [facility] Comment on above: Performed By: #### L IPD2, HA1C2 ####[address] [address] Hemoglobin A1c/Hemoglobin.total mass fraction (Bld) 5.5 % Normal 4.0-5.6 [facility] Comment on above: Result Comment: --Hg bA1C levels may not be accurate in patients who haverenal disease, received recent blood transfusions, are anemic,or who have dyshemoglobinemia. Performed By: #### L IPD2, HA1C2 ####[address] [address] Hemogram w/ Autodiffon 02-11 Abs Baso Cnt 0.0 10*3/uL Normal 0.0-0.2 [facility] Comment on above: Performed By: #### I CA, LFT3, BMP3, MG3, PT, APTT, PHOS3, CRP2, HEMDF ####[address] [address] Basophils/100 WBC Auto (Bld) 0.5 % Normal [facility] Comment on above: Performed By: #### I CA, LFT3, BMP3, MG3, PT, APTT, PHOS3, CRP2, HEMDF ####[address] [address] Eosinophils 0.2 10*3/uL Normal 0.0-0.5 [facility] Comment on above: Performed By: #### I CA, LFT3, BMP3, MG3, PT, APTT, PHOS3, CRP2, HEMDF ####[place] [address] Eosinophils/100 leukocytes 2.0 % Normal [facility] Comment on above: Performed By: #### I CA, LFT3, BMP3, MG3, PT, APTT, PHOS3, CRP2, HEMDF ####[place] [address] Erythrocyte distribution width Auto Ratio (RBC) 13.9 % Normal 11.5-14.5 [facility] Comment on above: Performed By: #### I CA, LFT3, BMP3, MG3, PT, APTT, PHOS3, CRP2, HEMDF ####[place] [address] Erythrocytes (RBC) 4.77 10*6/uL Normal 3.80-5.20 [facility] Comment on above: Performed By: #### I CA, LFT3, BMP3, MG3, PT, APTT, PHOS3, CRP2, HEMDF ####[place] [address] Granulocytes/100 WBC (Bld) 67.3 % Normal [facility] Comment on above: Performed By: #### I CA, LFT3, BMP3, MG3, PT, APTT, PHOS3, CRP2, HEMDF ####[place] [address] Hematocrit (HCT) 42.5 % Normal 35.0-47.0 [facility] Comment on above: Performed By: #### I CA, LFT3, BMP3, MG3, PT, APTT, PHOS3, CRP2, HEMDF ####[place] [address] Hemoglobin mass conc (Bld) 14.2 g/dL Normal 11.7-16.0 [facility] Comment on above: Performed By: #### I CA, LFT3, BMP3, MG3, PT, APTT, PHOS3, CRP2, HEMDF ####[place] [address] Lymphocytes 1.9 10*3/uL Normal 1.0-4.3 [facility] Comment on above: Performed By: #### I CA, LFT3, BMP3, MG3, PT, APTT, PHOS3, CRP2, HEMDF ####[place] [address] Lymphocytes/100 leukocytes 19.0 % Normal [facility] Comment on above: Performed By: #### I CA, LFT3, BMP3, MG3, PT, APTT, PHOS3, CRP2, HEMDF ####[place] [address] MCH 29.8 pg Normal 26.0-34.0 [facility] Comment on above: Performed By: #### I CA, LFT3, BMP3, MG3, PT, APTT, PHOS3, CRP2, HEMDF ####[place] [address] MCHC mass conc (RBC) 33.5 % Normal 32.0-36.0 [facility] Comment on above: Performed By: #### I CA, LFT3, BMP3, MG3, PT, APTT, PHOS3, CRP2, HEMDF ####[place] [address] MCV 89.1 fL Normal 79.0-98.0 [facility] Comment on above: Performed By: #### I CA, LFT3, BMP3, MG3, PT, APTT, PHOS3, CRP2, HEMDF ####[address] [address] Monocytes 1.1 10*3/uL High 0.0-0.8 [facility] Comment on above: Performed By: #### I CA, LFT3, BMP3, MG3, PT, APTT, PHOS3, CRP2, HEMDF ####[address] [address] Monocytes/100 leukocytes 11.2 % Normal [facility] Comment on above: Performed By: #### I CA, LFT3, BMP3, MG3, PT, APTT, PHOS3, CRP2, HEMDF ####[address] [address] Neutrophils 6.7 10*3/uL Normal 1.8-7.0 [facility] Comment on above: Performed By: #### I CA, LFT3, BMP3, MG3, PT, APTT, PHOS3, CRP2, HEMDF ####[address] [address] Platelet mean volume (PMV) 8.9 fL Normal 7.4-10.4 [facility] Comment on above: Performed By: #### I CA, LFT3, BMP3, MG3, PT, APTT, PHOS3, CRP2, HEMDF ####[address] [address] Platelets 229 10*3/uL Normal 140-440 [facility] Comment on above: Performed By: #### I CA, LFT3, BMP3, MG3, PT, APTT, PHOS3, CRP2, HEMDF ####[address] [address] WBC (Leukocytes) 9.9 10*3/uL Normal 3.6-10.7 [facility] Comment on above: Performed By: #### I CA, LFT3, BMP3, MG3, PT, APTT, PHOS3, CRP2, HEMDF ####[address] [address] Hepatic Functionon 7 Alkaline phosphatase (ALP) 63 U/L Normal 45-117 [facility] Comment on above: Performed By: #### I CA, LFT3, BMP3, MG3, PT, APTT, PHOS3, CRP2, HEMDF ####[address] [address] Bilirubin (direct) 0.1 mg/dL Normal 0.0-0.2 [facility] Comment on above: Performed By: #### I CA, LFT3, BMP3, MG3, PT, APTT, PHOS3, CRP2, HEMDF ####[address] [address] Bilirubin (total) 0.4 mg/dL Normal 0.2-1.0 [facility] Comment on above: Performed By: #### I CA, LFT3, BMP3, MG3, PT, APTT, PHOS3, CRP2, HEMDF ####[place] [address] Protein 6.8 g/dL Normal 6.4-8.2 [facility] Comment on above: Performed By: #### I CA, LFT3, BMP3, MG3, PT, APTT, PHOS3, CRP2, HEMDF ####[address] [address] Alanine aminotransferase (ALT) 51 U/L Normal 12-78 [facility] Comment on above: Performed By: #### I CA, LFT3, BMP3, MG3, PT, APTT, PHOS3, CRP2, HEMDF ####[address] [address] Aspartate aminotransferase (AST) 25 U/L Normal 15-37 [facility] Comment on above: Performed By: #### I CA, LFT3, BMP3, MG3, PT, APTT, PHOS3, CRP2, HEMDF ####[address] [address] Albumin 3.2 g/dL Low 3.4-5.0 [facility] Comment on above: Performed By: #### I CA, LFT3, BMP3, MG3, PT, APTT, PHOS3, CRP2, HEMDF ####[place] [address] [place] [address] Lipid Panelon 02-11-2017 Cholesterol to HDL Ratio 3 {ratio} Normal [facility] Comment on above: Result Comment: Ref Range:< 3 Low Risk for CHD3-6 Mod Risk for CHD> 6 High Risk for CHD Performed By: #### L IPD2, HA1C2 ####[place] [address] [place] [address] HDL Cholesterol 56 mg/dL Normal 40-59 [facility] Comment on above: Performed By: #### L IPD2, HA1C2 ####[place] [address] [place] [address] Low Density Lipoprotein 89 mg/dL Normal <100 [facility] Comment on above: Performed By: #### L IPD2, HA1C2 ####[place] [address] [place] [address] Cholesterol 167 mg/dL Normal < 200 [facility] Comment on above: Performed By: #### L IPD2, HA1C2 ####[place] [address] [place] [address] Triglyceride 111 mg/dL Normal <150 [facility] Comment on above: Performed By: #### L IPD2, HA1C2 ####[place] [address] [place] [address] Magnesiumon 02-11-2017 Magnesium 1.9 mg/dL Normal 1.8-2.4 [facility] Comment on above: Performed By: #### I CA, LFT3, BMP3, MG3, PT, APTT, PHOS3, CRP2, HEMDF ####[place] [address] [place] [address] Phosphoruson 02-11-2017 Phosphate 2.1 mg/dL Low 2.5-4.9 [facility] Comment on above: Performed By: #### I CA, LFT3, BMP3, MG3, PT, APTT, PHOS3, CRP2, HEMDF ####[place] [address] [place] [address] Prothrombin Timeon 7 INR Coag RelTime (PPP) 1.0 {INR} Normal 0.9-1.1 [facility] Comment on above: Result Comment: Jarvis mmended [...] BMP3, MG3, PT, APTT, PHOS3, CRP2, HEMDF ####[place] [address] Prothrombin time (PT) Coag time (PPP) 10.3 s Normal 9.0-12.0 [facility] Comment on above: Result Comment: . Performed By: #### I CA, LFT3, BMP3, MG3, PT, APTT, PHOS3, CRP2, HEMDF ####[place] [address] Surgical Pathologyon 017 Surgical Pathology [id number] [facility] DEPART[facility] PATHOLOGY AND LABORATORY MEDICINE [address] [place] [address] FINAL SURGICAL PATHOLOGY REPORT NAME: LUIZA MAY .O.B.: 1955 61 Y F BILLING NO.: [id number]: [id number] B PROCEDURE 02/11/2017 DATE:SURGEON: SHELLY [...] HISTOPATHOLOGIC CHANGES. NO SUBMUCOSAL TISSUE PRESENT FOR EVALUATION.SHABNAM/KMS1 PUSHPA ORO M.D. CLINICAL INFORMATION:History of hematemesisSPECIMEN: [...] entirely submitted in onecassette. (2 ns, 1) SHABNAM/Leslie: The following statement applies to allimmunohistochemistry , in situ hybridization, molecular studies, andimmunofluorescence testing.The use of one or more reagents in the above tests is regulated as ananalyte specific reagent (ASR). These tests were developed and theirperformance characteristics determined by the clinical laboratories [facility]. They have not been cleared by [...] false negativity on decalcified specimens.Professional Performing Location: [facility] [address] [place] [address]. DEPARTMENT OF PATHOLOGY AND LABORATORY MEDICINE [place], [place] [address] Normal [facility] Comment on above: Performed By: #### I CA, LFT3, BMP3, MG3, PT, APTT, PHOS3, CRP2, HEMDF ####[place] [address] VL Venous Duplex US Lower Ex t Bilateralon 02-11-2017 Bilirubin (total) Patient Name: LUIZA SERRATO Ultrasound Exam Date/Time 02/11/2017 11:13:19 EDT Exam VL Venous Duplex US Lower Ext Bilateral Ordering Physician JAMES MCDONALD AMBER A Accession Number [id number] CPT4 Codes 97860 () Reason For Exam stroke Report [facility] ------ --- Lower Extremity Venous Duplex Report Patient Name: Luiza May : 1955 (61yrs) Study Date: 02/11/2017 Vesna Higgnis Age: 61 Account: [id number] Gender: F Loc: [id number] BP: Ordering: Lauryn Mcdonald Technologist: Ordering Physician: Lauryn Mcdonald 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 CVA - [...] performed. The images were obtained using a [employer] E9 vascular ultrasound machine. ------ --- VENOUS [...] --+ Electronically signed by: Severo Morgan MD [id number] Final Dictated: 02/11/2017 11:45 am Dictating Physician: SEVERO MORGAN Signed Date and Time: 02/11/2017 11:45 am Signed by: SEVERO MORGAN Normal [facility] CR Chest Portableon 02-11-20 17 CR Chest Portable Patient Name: LUIZA SERRATO Diagnostic Radiology Exam Date/Time 02/10/2017 15:12:27 EDT Exam CR Chest Portable Ordering Physician JAMES MCDONALD AMBER A Accession Number [id number] CPT4 Codes 00774 () Reason For Exam respiratory distress Report [...] Transcribed Date and Time: 02/10/2017 3:30 Normal [facility] Potassiumon 02-10-2017 Potassium molar conc 3.5 mmol/L Normal 3.5-5.1 [facility] Comment on above: Performed By: #### K 3 ####[address] [address] Vital Signs Date Time Vital Sign Value Performing Clinician Facility 04-25-2024 14:25-0400 Body mass index (BMI) [Ratio] 23.03 kg/m2 Pepper Flannery MD Work Phone: [facility] 04-25-2024 14:25-040 Body weight 58.97 kg Pepper Flannery MD Work Phone: [facility] 04-25-2024 14:25-040 Diastolic blood pressure 60 mm[Hg] Pepper Flannery MD Work Phone: [facility] 04-25-2024 14:25-0400 Heart rate 91 /min Pepper Flannery MD Work Phone: [facility] 04-25-2024 14:25-0400 Respiratory rate 14 /min Pepper Flannery MD Work Phone: [facility] 04-25-2024 14:25-0400 SaO2% (BldA) [Mass fraction] 92 % Pepper Flannery MD Work Phone: [facility] 04-25-2024 14:25-0400 Systolic blood pressure 107 mm[Hg] Pepper Flannery MD Work Phone: [facility] 04-25-2024 11:48-0400 Body mass index (BMI) [Ratio] 23.03 kg/m2 Maryam Franco MD Work Phone: [facility] 04-25-2024 11:48-0400 Body weight 58.97 kg Maryam Franco MD Work Phone: [facility] 04-25-2024 11:48-0400 Diastolic blood pressure 60 mm[Hg] Maryam Franco MD Work Phone: [facility] 04-25-2024 11:48-0400 Heart rate 91 /min Maryam Franco MD Work Phone: [facility] 04-25-2024 11:48-0400 Respiratory rate 14 /min Maryam Franco MD Work Phone: [facility] 04-25-2024 11:48-0400 SaO2% (BldA) [Mass fraction] 92 % Maryam Franco MD Work Phone: [facility] Comment on above: on 3L 04-25-2024 11:48-0400 Systolic blood pressure 107 mm[Hg] Maryam Franco MD Work Phone: [facility] 03-13-2024 15:51-0400 SaO2% (BldA) [Mass fraction] 92 % Maryam Franco MD Work Phone: [facility] Comment on above: on 3L 03-13-2024 15:32-0400 Body mass index (BMI) [Ratio] 22.6 kg/m2 Maryam Franco MD Work Phone: [facility] 03-13-2024 15:32-0400 Body weight 57.88 kg Maryam Franco MD Work Phone: [facility] 03-13-2024 15:32-0400 Diastolic blood pressure 62 mm[Hg] Maryam Franco MD Work Phone: [facility] 03-13-2024 15:32-0400 Heart rate 101 /min Maryam Franco MD Work Phone: [facility] 03-13-2024 15:32-0400 Respiratory rate 16 /min Maryam Franco MD Work Phone: [facility] 03-13-2024 15:32-0400 Systolic blood pressure 118 mm[Hg] Maryam Franco MD Work Phone: [facility] 02-23-2024 15:40-0400 Body temperature 98.4 [degF] Maryam Franco MD Work Phone: [facility] 02-23-2024 15:40-0400 Diastolic blood pressure 74 mm[Hg] Maryam Franco MD Work Phone: [facility] 02-23-2024 15:40-0400 Heart rate 101 /min Maryam Franco MD Work Phone: [facility] 02-23-2024 15:40-0400 Respiratory rate 18 /min Maryam Franco MD Work Phone: [facility] 02-23-2024 15:40-0400 SaO2% (BldA) [Mass fraction] 91 % Maryam Franco MD Work Phone: [facility] 02-23-2024 15:40-0400 Systolic blood pressure 120 mm[Hg] Maryam Franco MD Work Phone: [facility] 02-17-2024 15:22-0400 Body mass index (BMI) [Ratio] 22.04 kg/m2 Maryam Franco MD Work Phone: [facility] 02-17-2024 15:22-0400 Body weight 56.43 kg Maryam Franco MD Work Phone: [facility] 02-17-2024 15:22-0400 Diastolic blood pressure 60 mm[Hg] Maryam Franco MD Work Phone: [facility] 02-17-2024 15:22-0400 Heart rate 84 /min Maryam Franco MD Work Phone: [facility] 02-17-2024 15:22-0400 SaO2% (BldA) [Mass fraction] 92 % Maryam Franco MD Work Phone: [facility] 02-17-2024 15:22-0400 Systolic blood pressure 100 mm[Hg] Maryam Franco MD Work Phone: [facility] 02-13-2024 08:22-0400 SaO2% (BldA) [Mass fraction] 94 % Em Montes MD Work Phone: [facility] [employer] 02-13-2024 05:12-0400 Body temperature 97 [degF] Em Montes MD Work Phone: [facility] [employer] 02-13-2024 05:12-0400 Diastolic blood pressure 46 mm[Hg] Em Montes MD Work Phone: [facility] [employer] 02-13-2024 05:12-0400 Heart rate 103 /min Em Montes MD Work Phone: [facility] [employer] 02-13-2024 05:12-0400 Respiratory rate 18 /min Em Montes MD Work Phone: [facility] [employer] 02-13-2024 05:12-0400 Systolic blood pressure 96 mm[Hg] Em Montes MD Work Phone: [facility] [employer] 02-09-2024 11:05-0400 Body height 160 cm Em Montes MD Work Phone: [facility] [employer] 02-07-2024 06:00-0400 Body mass index (BMI) [Ratio] 22.86 kg/m2 Em Montes MD Work Phone: [facility] 02-07-2024 06:00-0400 Body weight 58.51 kg Em Montes MD Work Phone: [facility] 01-29-2024 21:11-0400 SaO2% (BldA) [Mass fraction] 28.0 % Em Montes MD Work Phone: [facility] 01-29-2024 13:49-0400 SaO2% (BldA) [Mass fraction] 95.1 % Em Montes MD Work Phone: [facility] 01-29-2024 06:34-0400 SaO2% (BldA) [Mass fraction] 97.6 % Em Montes MD Work Phone: [facility] 01-03-2024 14:04-0400 Body mass index (BMI) [Ratio] 22.85 kg/m2 Issa Herman MD Work Phone: [facility] 01-03-2024 14:04-0400 Body temperature 98.71 [degF] Issa Herman MD Work Phone: [facility] 01-03-2024 14:04-0400 Body weight 58.51 kg Issa Herman MD Work Phone: [facility] 01-03-2024 14:04-0400 Diastolic blood pressure 66 mm[Hg] Issa cantrell MD Work Phone: [facility] 01-03-2024 14:04-0400 Heart rate 76 /min Issa Herman MD Work Phone: [facility] 01-03-2024 14:04-0400 Respiratory rate 20 /min Issa Herman MD Work Phone: [facility] 01-03-2024 14:04-0400 SaO2% (BldA) [Mass fraction] 99 % Issa Herman MD Work Phone: [facility] 01-03-2024 14:04-0400 Systolic blood pressure 104 mm[Hg] Issa Herman MD Work Phone: [facility] 12-24-2023 13:42-0400 Body height 160 cm Dex Hdz MD Work Phone: [facility] 12-24-2023 13:42-0400 Body mass index (BMI) [Ratio] 23.03 kg/m2 Dex Hdz MD Work Phone: [facility] 12-24-2023 13:42-0400 Body temperature 97.9 [degF] Dex Hdz MD Work Phone: [facility] 12-24-2023 13:42-0400 Body weight 58.97 kg Dex Hdz MD Work Phone: [facility] 12-24-2023 13:42-0400 Heart rate 80 /min Dex Hdz MD Work Phone: [facility] 12-24-2023 13:42-0400 SaO2% (BldA) [Mass fraction] 90 % Dex Hdz MD Work Phone: [facility] Comment on above: 3L via [place] 12-02-2023 14:06-0400 Body height 160 cm Issa Herman MD Work Phone: [facility] 12-02-2023 14:06-0400 Body mass index (BMI) [Ratio] 23.1 kg/m2 Issa Herman MD Work Phone: [facility] 12-02-2023 14:06-0400 Body weight 59.15 kg Issa Herman MD Work Phone: [facility] 12-02-2023 14:06-0400 Diastolic blood pressure 60 mm[Hg] Issa cantrell MD Work Phone: [facility] 12-02-2023 14:06-0400 Heart rate 102 /min Issa Herman MD Work Phone: [facility] 12-02-2023 14:06-0400 SaO2% (BldA) [Mass fraction] 84 % Issa Herman MD Work Phone: [facility] 12-02-2023 14:06-0400 Systolic blood pressure 98 mm[Hg] Issa Herman MD Work Phone: [facility], [facility] 10-12-2023 15:22-0400 SaO2% (BldA) [Mass fraction] 93 % Charlene Henderson MD Work Phone: [facility] 10-12-2023 08:26-0400 Diastolic blood pressure 47 mm[Hg] Charlene Henderson MD Work Phone: [facility] [employer] 10-12-2023 08:26-0400 Heart rate 93 /min Charlene Henderson MD Work Phone: [facility] [employer] 10-12-2023 08:26-0400 Systolic blood pressure 98 mm[Hg] Charlene Henderson MD Work Phone: [facility] [employer] 10-12-2023 07:35-0400 Body temperature 98.01 [degF] Charlene Henderson MD Work Phone: [facility] [employer] 10-12-2023 07:35-0400 Respiratory rate 16 /min Charlene Henderson MD Work Phone: [facility] [employer] 10-11-2023 12:27-0400 Body height 157.5 cm Charlene Henderson MD Work Phone: [facility] [employer] 10-10-2023 22:01-0400 Body mass index (BMI) [Ratio] 28.62 kg/m2 Charlene Henderson MD Work Phone: [facility] [employer] 10-10-2023 22:01-0400 Body weight 71 kg Charlene Henderson MD Work Phone: [facility] [employer] 10-06-2023 03:55-0400 SaO2% (BldA) [Mass fraction] 99.4 % Charlene Henderson MD Work Phone: [facility] [employer] 10-05-2023 04:05-0400 SaO2% (BldA) [Mass fraction] 98.0 % Charlene Henderson MD Work Phone: [facility] [employer] 10-04-2023 03:52-0400 SaO2% (BldA) [Mass fraction] 98.9 % Charlene eHnderson MD Work Phone: [facility] [employer] 10-03-2023 11:27-0400 SaO2% (BldA) [Mass fraction] 96.8 % Charlene Henderson MD Work Phone: [facility] [employer] 10-03-2023 09:51-0400 SaO2% (BldA) [Mass fraction] 94.4 % Charlene Henderson MD Work Phone: [facility] [employer] 10-02-2023 23:21-0400 SaO2% (BldA) [Mass fraction] 96.3 % Charlene Henderson MD Work Phone: [facility] [employer] 10-02-2023 21:13-0400 SaO2% (BldA) [Mass fraction] 98.8 % Charlene Henderson MD Work Phone: [facility] [employer] 09-28-2023 17:40-0400 SaO2% (BldA) [Mass fraction] 98.6 % Charlene Henderson MD Work Phone: [facility] [employer] 09-28-2023 12:22-0400 SaO2% (BldA) [Mass fraction] 99.9 % Charlene Henderson MD Work Phone: [facility] [employer] 09-23-2023 13:49-0400 Body weight 63.69 kg Joanie Denbow PA-C Work Phone: [facility] 09-23-2023 13:49-0400 Diastolic blood pressure 62 mm[Hg] Joanie Denbow PA-C Work Phone: [facility] 09-23-2023 13:49-0400 Heart rate 84 /min Joanie Denbow PA-C Work Phone: [facility] 09-23-2023 13:49-0400 Respiratory rate 14 /min Joanie Denbow PA-C Work Phone: [facility] 09-23-2023 13:49-0400 Systolic blood pressure 112 mm[Hg] Joanie Denbow PA-C Work Phone: [facility] 08-17-2023 08:41-0500 Diastolic blood pressure 58 mm[Hg] Joanie Denbow PA-C Work Phone: [facility] 08-17-2023 08:41-0500 Systolic blood pressure 89 mm[Hg] Joanie Denbow PA-C Work Phone: [facility] 08-17-2023 07:50-0500 Body temperature 97.3 [degF] Joanie Denbow PA-C Work Phone: [facility] 08-17-2023 07:50-0500 Body weight 63.05 kg Joanie Denbow PA-C Work Phone: [facility] 08-17-2023 07:50-0500 Heart rate 84 /min Joanie Denbow PA-C Work Phone: [facility] 08-17-2023 07:50-0500 Respiratory rate 16 /min Joanie Denbow PA-C Work Phone: [facility] 08-17-2023 07:50-0500 SaO2% (BldA) [Mass fraction] 95 % Joanie Denbow PA-C Work Phone: [facility] 08-07-2023 04:18-0500 SaO2% (BldA) [Mass fraction] 99 % [facility] Comment on above: Order Comment: Specimen Type: ARTERIAL B LOOD SPECIMENOrdering Facility: [facility] Address: [address] [place] [address] Performed By: #### A LLBG ####[facility] LABORATORYIA [id number] [place] [address] [place] 08-06-2023 22:11-0500 SaO2% (BldA) [Mass fraction] 96 % [facility] Comment on above: Order Comment: Specimen Type: ARTERIAL B LOOD SPECIMENOrdering Facility: [facility] Address: [address] [place], [place] [id number] Performed By: #### A LLBG ####[facility]ORATORYCLIA [id number] [place] [address] [facility] 08-06-2023 11:24-0500 SaO2% (BldA) [Mass fraction] 38 % [facility] Comment on above: Order Comment: Specimen Type: ARTERIAL B LOOD SPECIMENOrdering Facility: [facility] Address: [address] [place] [address] Performed By: #### A LLBG ####[facility] LABORATORYCLIA [id number] [place] [address] [facility] 08-06-2023 08:01-0500 SaO2% (BldA) [Mass fraction] 99 % [facility] Comment on above: Order Comment: Specimen Type: ARTERIAL B LOOD SPECIMENOrdering Facility: [facility] Address: [address] [place] [address] Performed By: #### A LLBG ####[facility] LABORATORYCLIA [id number] [place] [address] [facility] 08-06-2023 06:17-0500 SaO2% (BldA) [Mass fraction] 99 % [facility] Comment on above: Order Comment: Specimen Type: ARTERIAL B LOOD SPECIMENOrdering Facility: [facility] Address: [address] [place] [address] Performed By: #### A LLBG ####[facility] LABORATORYCLIA [id number] [place] [id number] [facility] 03-25-2023 12:59-0400 Body weight 57.61 kg Joan Older PUBLIC WORKS MANAGER.CLEAN UP WORKER Work Phone: [facility] 03-25-2023 12:59-0400 Diastolic blood pressure 80 mm[Hg] Joan Older PUBLIC WORKS MANAGER.CLEAN UP WORKER Work Phone: [facility] 03-25-2023 12:59-0400 Heart rate 88 /min Joan Older PUBLIC WORKS MANAGER.CLEAN UP WORKER Work Phone: [facility] 03-25-2023 12:59-0400 Respiratory rate 16 /min Joan Older PUBLIC WORKS MANAGER.CLEAN UP WORKER Work Phone: [facility] 03-25-2023 12:59-0400 SaO2% (BldA) [Mass fraction] 95 % Joan Older PUBLIC WORKS MANAGER.CLEAN UP WORKER Work Phone: [facility] 03-25-2023 12:59-0400 Systolic blood pressure 124 mm[Hg] Joan Older PUBLIC WORKS MANAGER.CLEAN UP WORKER Work Phone: [facility] 02-05-2023 12:27-0400 Body height 160 cm Joanie Denbow PA-C Work Phone: [facility] 02-05-2023 12:27-0400 Body temperature 97.7 [degF] Joanie Denbow PA-C Work Phone: [facility] 02-05-2023 12:27-0400 Body weight 53.98 kg Joanie Denbow PA-C Work Phone: [facility] 02-05-2023 12:27-0400 Diastolic blood pressure 74 mm[Hg] Joanie Denbow PA-C Work Phone: [facility] 02-05-2023 12:27-0400 Heart rate 87 /min Joanie Denbow PA-C Work Phone: [facility] 02-05-2023 12:27-0400 Respiratory rate 12 /min Joanie Denbow PA-C Work Phone: [facility] 02-05-2023 12:27-0400 SaO2% (BldA) [Mass fraction] 96 % Joanie Denbow PA-C Work Phone: [facility] 02-05-2023 12:27-0400 Systolic blood pressure 128 mm[Hg] Joanie Denbow PA-C Work Phone: [facility] 11-13-2022 11:16-0400 Body temperature 98.6 [degF] Joan Older PUBLIC WORKS MANAGER.CLEAN UP WORKER Work Phone: [facility] 11-13-2022 11:16-0400 Body weight 54.43 kg Joan Older PUBLIC WORKS MANAGER.CLEAN UP WORKER Work Phone: [facility] 11-13-2022 11:16-0400 Diastolic blood pressure 84 mm[Hg] Joan Older PUBLIC WORKS MANAGER.CLEAN UP WORKER Work Phone: [facility] 11-13-2022 11:16-0400 Heart rate 76 /min Joan Older PUBLIC WORKS MANAGER.CLEAN UP WORKER Work Phone: [facility] 11-13-2022 11:16-0400 Respiratory rate 16 /min Joan Older PUBLIC WORKS MANAGER.CLEAN UP WORKER Work Phone: [facility] 11-13-2022 11:16-0400 SaO2% (BldA) [Mass fraction] 96 % Joan Older PUBLIC WORKS MANAGER.CLEAN UP WORKER Work Phone: [facility] 11-13-2022 11:16-0400 Systolic blood pressure 148 mm[Hg] Joan Older PUBLIC WORKS MANAGER.CLEAN UP WORKER Work Phone: [facility] 11-03-2022 14:03-0400 Body temperature 98.29 [degF] Maryam Franco MD Work Phone: [facility] 11-03-2022 14:03-0400 Body weight 52.16 kg Maryam Franco MD Work Phone: [facility] 11-03-2022 14:03-0400 Diastolic blood pressure 70 mm[Hg] Maryam Franco MD Work Phone: [facility] 11-03-2022 14:03-0400 Heart rate 73 /min Maryam Franco MD Work Phone: [facility] 11-03-2022 14:03-0400 Respiratory rate 16 /min Maryam Franco MD Work Phone: [facility] 11-03-2022 14:03-0400 SaO2% (BldA) [Mass fraction] 90 % Maryam Franco MD Work Phone: [facility] 11-03-2022 14:03-0400 Systolic blood pressure 122 mm[Hg] Maryam Franco MD Work Phone: [facility] 10-16-2022 09:58-0400 Body temperature 97.5 [degF] Joan Older PUBLIC WORKS MANAGER.CLEAN UP WORKER Work Phone: [facility] 10-16-2022 09:58-0400 Body weight 53.98 kg Joan Older PUBLIC WORKS MANAGER.CLEAN UP WORKER Work Phone: [facility] 10-16-2022 09:58-0400 Diastolic blood pressure 78 mm[Hg] Joan Older PUBLIC WORKS MANAGER.CLEAN UP WORKER Work Phone: [facility] 10-16-2022 09:58-0400 Heart rate 82 /min Joan Older PUBLIC WORKS MANAGER.CLEAN UP WORKER Work Phone: [facility] 10-16-2022 09:58-0400 Respiratory rate 16 /min Joan Older PUBLIC WORKS MANAGER.CLEAN UP WORKER Work Phone: [facility] 10-16-2022 09:58-0400 SaO2% (BldA) [Mass fraction] 95 % Joan Older PUBLIC WORKS MANAGER.CLEAN UP WORKER Work Phone: [facility] 10-16-2022 09:58-0400 Systolic blood pressure 138 mm[Hg] Joan Older PUBLIC WORKS MANAGER.CLEAN UP WORKER Work Phone: [facility] 10-01-2022 12:06-0400 Body temperature 97.59 [degF] Maryam Franco MD Work Phone: [facility] 10-01-2022 12:06-0400 Body weight 51.26 kg Maryam Franco MD Work Phone: [facility] 10-01-2022 12:06-0400 Diastolic blood pressure 80 mm[Hg] Maryam Franco MD Work Phone: [facility] 10-01-2022 12:06-0400 Heart rate 75 /min Maryam Franco MD Work Phone: [facility] 10-01-2022 12:06-0400 Respiratory rate 16 /min Maryam Franco MD Work Phone: [facility] 10-01-2022 12:06-0400 SaO2% (BldA) [Mass fraction] 93 % Maryam Franco MD Work Phone: [facility] 10-01-2022 12:06-0400 Systolic blood pressure 128 mm[Hg] Maryam Franco MD Work Phone: [facility] 08-19-2022 12:58-0500 Diastolic blood pressure 54 mm[Hg] Maryam Franco MD Work Phone: [facility] 08-19-2022 12:58-0500 Heart rate 108 /min Maryam Franco MD Work Phone: [facility] 08-19-2022 12:58-0500 Respiratory rate 20 /min Maryam Franco MD Work Phone: [facility] 08-19-2022 12:58-0500 SaO2% (BldA) [Mass fraction] 87 % Maryam Franco MD Work Phone: [facility] 08-19-2022 12:58-0500 Systolic blood pressure 92 mm[Hg] Maryam Franco MD Work Phone: [facility] 04-03-2022 14:11-0400 Body temperature 98.49 [degF] Pushpa Esquivel Jr., MD Work Phone: [facility] 04-03-2022 14:11-0400 Body weight 57.61 kg Pushpa Esquivel Jr., MD Work Phone: [facility] 04-03-2022 14:11-0400 Diastolic blood pressure 60 mm[Hg] Pushpa Esquivel Jr., MD Work Phone: [facility] 04-03-2022 14:11-0400 Heart rate 96 /min Pushpa Esquivel Jr., MD Work Phone: [facility] 04-03-2022 14:11-0400 Respiratory rate 18 /min Pushpa Esquivel Jr., MD Work Phone: [facility] 04-03-2022 14:11-0400 SaO2% (BldA) [Mass fraction] 96 % Pushpa Esquivel Jr., MD Work Phone: [facility] 04-03-2022 14:11-0400 Systolic blood pressure 108 mm[Hg] Pushpa Esquivel Jr., MD Work Phone: [facility] 03-26-2022 08:15-0400 Body weight 59.88 kg Joan Older PUBLIC WORKS MANAGER.CLEAN UP WORKER Work Phone: [facility] 03-26-2022 08:15-0400 Diastolic blood pressure 66 mm[Hg] Joan Older PUBLIC WORKS MANAGER.CLEAN UP WORKER Work Phone: [facility] 03-26-2022 08:15-0400 Heart rate 84 /min Joan Older PUBLIC WORKS MANAGER.CLEAN UP WORKER Work Phone: [facility] 03-26-2022 08:15-0400 Respiratory rate 16 /min Joan Older PUBLIC WORKS MANAGER.CLEAN UP WORKER Work Phone: [facility] 03-26-2022 08:15-0400 Systolic blood pressure 112 mm[Hg] Joan Older PUBLIC WORKS MANAGER.CLEAN UP WORKER Work Phone: [facility] 02-09-2022 07:47-0400 Body temperature 97.52 [degF] ANALY SCHEATZLE DO [employer] 02-09-2022 07:47-0400 Diastolic blood pressure 66 mm[Hg] ANALY SCHEATZLE DO [employer] 02-09-2022 07:47-0400 Heart rate 106 /min ANALY SCHEATZLE DO [employer] 02-09-2022 07:47-0400 Mean blood pressure 88 mm[Hg] ANALY SCHEATZLE DO [facility] 02-09-2022 07:47-0400 Respiratory rate 18 /min ANALY SCHEATZLE DO [facility] 02-09-2022 07:47-0400 Systolic blood pressure 132 mm[Hg] ANALY [place] [facility] 02-08-2022 22:16-0400 Body temperature 97.88 [degF] ANALY SCHEATZLE DO [facility] 02-08-2022 22:16-0400 Diastolic blood pressure 54 mm[Hg] ANALY SCHEATZLE DO [facility] 02-08-2022 22:16-0400 Heart rate 97 /min ANALY SCHEATZLE DO [facility] 02-08-2022 22:16-0400 Mean blood pressure 73 mm[Hg] ANALY SCHEATZLE DO [facility] 02-08-2022 22:16-0400 Respiratory rate 16 /min ANALY SCHEATZLE DO [facility] 02-08-2022 22:16-0400 Systolic blood pressure 111 mm[Hg] ANALY SCHEATZLE D O [facility] 02-08-2022 16:32-0400 Body temperature 98.06 [degF] ANALY SCHEATZLE DO [facility] 02-08-2022 16:32-0400 Diastolic blood pressure 62 mm[Hg] ANALY SCHEATZLE DO [facility] 02-08-2022 16:32-0400 Heart rate 102 /min ANALY SCHEATZLE DO [facility] 02-08-2022 16:32-0400 Mean blood pressure 82 mm[Hg] ANALY SCHEATZLE DO [facility] 02-08-2022 16:32-0400 Respiratory rate 16 /min NAALY SCHEATZLE DO [facility] 02-08-2022 16:32-0400 Systolic blood pressure 122 mm[Hg] ANALY SCHEATZLE D O [facility] 02-08-2022 07:56-0400 Body temperature 96.8 [degF] ANALY LAYTONATZLE DO [facility] 02-08-2022 07:56-0400 Heart rate 80 /min ANALY LAYTONATZLE DO [facility] 02-07-2022 15:54-0400 Reason For Taking VItal Signs ANALY SCHEATZLE DO [facility] 02-07-2022 15:35-0400 Body weight 60 kg ANALY LAYTONATZLE DO [facility] 02-07-2022 08:54-0400 Reason For Taking VItal Signs ANALY KINJALATZLE DO [facility] 02-06-2022 15:44-0400 Body temperature 97.52 [degF] ANALY SCHEATZLE DO [facility] 02-06-2022 15:44-0400 Reason For Taking VItal Signs ANALY LAYTONATZLE DO [facility] 02-05-2022 15:33-0400 Body temperature 98.24 [degF] ANALY LAYTONATZLE DO [facility] 02-05-2022 15:33-0400 Heart rate 102 /min ANALY LAYTONATZLE DO [facility] 02-05-2022 08:12-0400 Heart rate 105 /min ANALY SCHEATZLE DO [facility] 02-05-2022 06:17-0400 Body weight 59.1 kg ANALY LAYTONATZLE DO [facility] 01-30-2022 08:48-0400 Body weight 23.98 kg/m2 ANALY LAYTONATZLE DO [facility] 01-28-2022 07:00-0400 Body weight 61.4 kg ANALY LARSON DO [facility] 01-27-2022 19:40-0400 Body height 160 cm ANALY LARSON DO [facility] 01-27-2022 19:40-0400 Body weight 25.23 kg/m2 ANALY LARSON DO [facility] 01-27-2022 15:21-0400 Body temperature 98.01 [degF] Pablo Barraza MD Work Phone: [facility] 01-27-2022 15:21-0400 Diastolic blood pressure 58 mm[Hg] Pablo bernal MD Work Phone: [facility] 01-27-2022 15:21-0400 Heart rate 100 /min Pablo Barraza MD Work Phone: [facility] 01-27-2022 15:21-0400 Respiratory rate 18 /min Pablo Barraza MD Work Phone: [facility] 01-27-2022 15:21-0400 SaO2% (BldA) [Mass fraction] 100 % Pablo Barraza MD Work Phone: [facility] 01-27-2022 15:21-0400 Systolic blood pressure 119 mm[Hg] Pablo Barraza MD Work Phone: [facility] 01-23-2022 14:51-0400 Body mass index (BMI) [Ratio] 24.71 kg/m2 Pablo Barraza MD Work Phone: [facility] 01-23-2022 14:51-0400 Body weight 63.28 kg Pablo Barraza MD Work Phone: [facility] 01-12-2022 12:46-0400 Body height 160 cm Pablo Barraza MD Work Phone: [facility] 12-23-2021 11:20-0400 Body height 160 cm Maryam Franco MD Work Phone: [facility] 12-23-2021 11:20-0400 Body temperature 97.59 [degF] Maryam Franco MD Work Phone: [facility] 12-23-2021 11:20-0400 Body weight 62.6 kg Maryam Franco MD Work Phone: [facility] 12-23-2021 11:20-0400 Diastolic blood pressure 70 mm[Hg] Maryam Franco MD Work Phone: [facility] 12-23-2021 11:20-0400 Heart rate 80 /min Maryam Franco MD Work Phone: [facility] 12-23-2021 11:20-0400 Respiratory rate 12 /min Maryam Franco MD Work Phone: [facility] 12-23-2021 11:20-0400 SaO2% (BldA) [Mass fraction] 91 % Maryam Franco MD Work Phone: [facility] 12-23-2021 11:20-0400 Systolic blood pressure 114 mm[Hg] Maryam Franco MD Work Phone: [facility] 11-03-2021 12:58-0400 Body height 160 cm Maryam Franco MD Work Phone: [facility] 11-03-2021 12:58-0400 Body temperature 97.81 [degF] Maryam Franco MD Work Phone: [facility] 11-03-2021 12:58-0400 Body weight 63.05 kg Maryam Franco MD Work Phone: [facility] 11-03-2021 12:58-0400 Diastolic blood pressure 62 mm[Hg] Maryam Franco MD Work Phone: [facility] 11-03-2021 12:58-0400 Heart rate 87 /min Maryam Franco MD Work Phone: [facility] 11-03-2021 12:58-0400 Respiratory rate 12 /min Maryam Franco MD Work Phone: [facility] 11-03-2021 12:58-0400 SaO2% (BldA) [Mass fraction] 93 % Maryam Franco MD Work Phone: [facility] 11-03-2021 12:58-0400 Systolic blood pressure 120 mm[Hg] Maryam Franco MD Work Phone: [facility] 10-08-2021 09:48-0400 Body temperature 96.91 [degF] Maryam Franco MD Work Phone: [facility] 10-08-2021 09:48-0400 Body weight 69.85 kg Maryam Franco MD Work Phone: [facility] 10-08-2021 09:48-0400 Diastolic blood pressure 64 mm[Hg] Maryam Franco MD Work Phone: [facility] 10-08-2021 09:48-0400 Heart rate 71 /min Maryam Franco MD Work Phone: [facility] 10-08-2021 09:48-0400 Respiratory rate 16 /min Maryam Franco MD Work Phone: [facility] 10-08-2021 09:48-0400 SaO2% (BldA) [Mass fraction] 92 % Maryam Franco MD Work Phone: [facility] 10-08-2021 09:48-0400 Systolic blood pressure 120 mm[Hg] Maryam Franco MD Work Phone: [facility] 09-07-2021 19:10-0500 Diastolic blood pressure 57 mm[Hg] BRAD THOMAS MD [facility] 09-07-2021 19:10-0500 Heart rate 78 /min BRAD THOMAS MD [facility] 09-07-2021 19:10-0500 Reason For Taking VItal Signs BRAD THOMAS MD [facility] 09-07-2021 19:10-0500 Respiratory rate 16 /min BRAD THOMAS MD [facility] 09-07-2021 19:10-0500 Systolic blood pressure 103 mm[Hg] BRAD [facility] 09-07-2021 15:59-0500 Body temperature 97.16 [degF] BRAD THOMAS MD [facility] 09-07-2021 15:59-0500 Diastolic blood pressure 54 mm[Hg] BRAD THOMAS MD [facility] 09-07-2021 15:59-0500 Heart rate 88 /min BRAD THOMAS MD [facility] 09-07-2021 15:59-0500 Respiratory rate 18 /min BRAD THOMAS MD [facility] 09-07-2021 15:59-0500 Systolic blood pressure 99 mm[Hg] BRAD [facility] Encounters Encounter Date Encounter Type Care Provider Facility Start: 04-28-2024 End: 04-28-2024 Nurse Triage Zabrina Vallejo RN NURSE [employer]ED[employer] Comment on above: Refill Request Start: 04-27-2024 End: 04-27-2024 Orders Only Pepper Flannery MD Work Phone: Pulmonary Medicine Comment on above: Tracheostomy present (HCC) (Primary Dx) ACVipin MAN RN ( ER outreach follow up) Start: 04-25-2024 End: 04-25-2024 ambulatory [facility] Facility:[facility] Start: 04-25-2024 End: 04-25-2024 Patient encounter procedure Pepper Flannery MD Work Phone: Pulmonary Medicine Comment on above: Chronic obstructive pulmonary disease, unspecified COPD type (HCC) (Primary Dx); Chronic respiratory failure with hypoxia and hypercapnia (HCC); Tracheostomy present (HCC); Former smoker Start: 04-25-2024 End: 04-25-2024 [facility] Facility:[facility] Start: 04-25-2024 End: 04-25-2024 Office outpatient visit 25 minutes Maryam Franco MD Work Phone: Internal Medicine [place] Comment on above: 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); 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); Anxiety Start: 04-17-2024 End: 04-17-2024 ambulatory [facility] Start: 04-17-2024 End: 04-17-2024 Patient encounter procedure [facility] Comment on above: Population Health Na vigation Outreach (Arlet [place] [facility]) Start: 03-29-2024 End: 03-31-2024 Telephone encounter Maryam Franco MD Work Phone: [facility] [place] Comment on above: Orders Start: 03-28-2024 End: 03-29-2024 Refill Maryam Franco MD Work Phone: [facility] [place] Comment on above: Refill Request Start: 03-23-2024 End: 03-27-2024 Telephone encounter Maryam Franco MD Work Phone: [facility] [place] Comment on above: Orders Start: 03-18-2024 End: 03-20-2024 Refill Maryam Franco MD Work Phone: [facility] [place] Comment on above: Refill Request Start: 03-17-2024 End: 03-17-2024 ambulatory Gagan Schuster RN Work Phone: [employer] Comment on above: WAYLON MAN RN ( Initial ER f/o outreach) Start: 03-14-2024 End: 03-15-2024 Telephone encounter Maryam Franco MD Work Phone: [facility] [place] Comment on above: Orders Start: 03-13-2024 End: 03-13-2024 Office outpatient visit 25 minutes Maryam Franco MD Work Phone: Internal Medicine [place] Comment on above: Hospital discharge f ollow-up (Primary Dx); Anxiety Start: 03-13-2024 End: 03-13-2024 ambulatory MARYAM FRANCO Facility:[facility] Start: 03-01-2024 End: 03-02-2024 ambulatory Maryam Franco MD Work Phone: Internal Medicine [place] Comment on above: Mental Status Change s Start: 02-28-2024 End: 02-28-2024 Refill Maryam Franco MD Work Phone: Internal Medicine [place] Comment on above: Refill Request Start: 02-23-2024 End: 02-23-2024 Office outpatient visit 25 minutes Maryam Franco MD Work Phone: Internal Medicine [place] Comment on above: Chronic pain of righ t lower extremity (Primary Dx); Right leg pain; Restless legs; Anxiety Start: 02-23-2024 End: 02-23-2024 ambulatory MARYAMRA FRANCO Facility:[facility] Start: 02-22-2024 End: 02-25-2024 ambulatory Maryam Franco MD Work Phone: Internal Medicine [facility] Start: 02-17-2024 End: 02-17-2024 Office outpatient visit 25 minutes Maryam Franco MD Work Phone: Internal Medicine [place] Comment on above: Hospital discharge f ollow-up (Primary Dx); Decompensated heart failure (HCC); Traumatic subdural hemorrhage with loss of consciousness of unspecified duration, initial encounter (HCC); Malnutrition of mild degree (HCC); Right leg pain Start: 02-17-2024 End: 02-17-2024 ambulatory [facility] Facility:[facility] Start: 02-15-2024 Refill Maryam West Work Phone: Internal Medicine [place] Comment on above: Refill Request Start: 02-11-2024 Telephone encounter Maryam france MD Work Phone: Internal Medicine [place] Comment on above: [facility] nurse calling to set up home heal Start: 01-28-2024 End: 02-13-2024 Evaluation and management of inpatient Em Montes MD Work Phone: [facility] Respiratory Unit 7W Start: 01-25-2024 Refill Maryam West Work Phone: Internal Medicine [place] Comment on above: Refill Request Start: 01-24-2024 ambulatory Darien Barnard [facility] [place] Start: 01-24-2024 Patient encounter [facility] [place] Comment on above: Population Health [facility] [place] [facility] Start: 01-20-2024 Telephone encounter Maryam france MD Work Phone: Internal Medicine [place] Comment on above: [facility] work Start: 01-19-2024 Telephone encounter Maryam france MD Work Phone: Internal Medicine [place] Comment on above: Refill Request Start: 01-05-2024 Telephone encounter Dex Hdz MD Work Phone: General Surgery Comment on above: Patient Question Start: 01-04-2024 Telephone encounter Maryam france MD Work Phone: Internal Medicine [place] Comment on above: Patient Update Appointment Start: 01-03-2024 End: 01-03-2024 ambulatory MARYAM GANTAYA Facility:[facility] Start: 01-03-2024 End: 01-03-2024 Patient encounter procedure Issa Herman MD Work Phone: Internal Medicine [place] Comment on above: Tracheostomy in plac e [...] Refill Request Start: 12-24-2023 End: 12-24-2023 ambulatory MARYAM FRANCO Facility:[facility] Start: 12-21-2023 Telephone encounter Issa steven MD Work Phone: Internal Medicine [place] Comment on above: Orders Start: 12-17-2023 Refill Maryam West Work Phone: Internal Medicine [place] Comment on above: Refill Request Start: 12-16-2023 ambulatory Gagan Schuster RN Work Phone: [employer] Start: 12-13-2023 Telephone encounter Maryam france MD Work Phone: Family Medicine [place] Comment on above: Patient Update Start: 12-10-2023 ambulatory Gagan Schuster RN Work Phone: [employer] Comment on above: ACM DONOVAN RN ( ER vs [place] on 12/06/23) Start: 12-09-2023 Refill Maryam West Work Phone: Internal Medicine [place] Comment on above: Refill Request Start: 12-03-2023 Telephone encounter Maryam france MD Work Phone: Internal Medicine [place] Comment on above: Home Health Point of Care Results; Medication Problem Start: 12-02-2023 End: 12-02-2023 ambulatory MARYAM FRANCO Facility:[facility] Start: 12-02-2023 End: 12-02-2023 Patient encounter procedure Issa Herman MD Work Phone: Internal Medicine [place] Comment on above: Tracheostomy in plac e (HCC) (Primary Dx); 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); Panlobular emphysema (HCC); Seizure-like activity (HCC); Insomnia, unspecified type Start: 11-26-2023 Telephone encounter Maryam france MD Work Phone: Internal Medicine [place] Comment on above: requesting medicatio n that is Refill Request Start: 11-23-2023 ambulatory Rosalva Stoddard [facility] [place] Start: 11-23-2023 Patient encounter procedure Rosalva Stoddard MA [facility] [place] Comment on above: Population Health Na vigation Outreach ([facility]/HCC and care gaps ) Start: 11-02-2023 Refill Maryam West Work Phone: Internal Medicine [place] Comment on above: Refill Request Start: 10-12-2023 End: 11-11-2023 ambulatory KAILEY TREVINO MD Facility:A Start: 09-29-2023 Refill Joanie Benitez PA-C Work Phone: Internal Medicine [place] Comment on above: Refill Request Start: 09-27-2023 Refill Maryam West Work Phone: Family Medicine [place] Comment on above: Refill Request Start: 09-26-2023 End: 09-26-2023 ambulatory [facility] Start: 09-26-2023 End: 10-12-2023 Evaluation and management of inpatient Charlene Henderson MD Work Phone: [facility] Respiratory Unit 7W Start: 09-23-2023 End: 09-23-2023 ambulatory JOANIE BENITEZ Facility:[facility] Start: 09-23-2023 End: 09-23-2023 Patient encounter procedure Joanie Benitez PA-C Work Phone: Internal Medicine [place] Comment on above: Insomnia, unspecifie d type (Primary Dx); Confusion; Subdural hematoma (HCC); RLS (restless legs syndrome); Anxiety Start: 09-21-2023 Telephone encounter Maryam france MD Work Phone: Internal Medicine [place] Comment on above: Refill Request; Miss ed Appointment Start: 09-13-2023 Refill Maryam West Work Phone: Internal Medicine [place] Comment on above: Refill Request Start: 09-03-2023 Refill Maryam West Work Phone: Family [facility] Comment on above: Refill Request Start: 08-19-2023 Refill Maryam West Work Phone: Family [facility] [place] Comment on above: Refill Request Start: 08-19-2023 Refill Joanie Benitez PA-C Work Phone: Internal Medicine [place] Comment on above: Refill Request Start: 08-17-2023 End: 08-17-2023 ambulatory JOANIE L REAL Facility:[facility] Start: 08-17-2023 End: 08-17-2023 ambulatory JOANIE L REAL Facility:[facility] Start: 08-17-2023 End: 08-17-2023 Patient [...] Refill Maryam West Work Phone: Internal Medicine [place] Comment on above: Refill Request Start: 08-05-2023 End: 08-10-2023 Evaluation and management of inpatient ALI MALLAT Facility:[facility] Start: 07-14-2023 End: 07-14-2023 ambulatory LISE MAJOR Facility:[facility] Start: 06-11-2023 Refill Maryam West Work Phone: Internal Medicine [place] Comment on above: Refill Request Start: 06-10-2023 Telephone encounter Maryam france MD Work Phone: Internal Medicine [place] Comment on above: Medication Request Start: 05-10-2023 Telephone encounter Maryam france MD Work Phone: Internal Medicine [place] Comment on above: FYI-No Action Needed Results Start: 05-06-2023 End: 05-06-2023 ambulatory JOAN JOHNSON Facility:[facility] Start: 05-05-2023 Refill Joan Johnson PUBLIC WORKS MANAGER .CLEAN UP WORKER Work Phone: Internal Medicine [place] Comment on above: Refill Request; Refi ll Request Start: 05-04-2023 Refill Maryam West Work Phone: Internal Medicine [place] Comment on above: Refill Request Start: 04-26-2023 Refill Maryam West Work Phone: Internal Medicine [place] Comment on above: Refill Request Start: 04-20-2023 Refill Sarah STAPLESCLEAN UP WORKER Work Phone: Internal Medicine [place] Comment on above: Refill Request Start: 04-14-2023 Telephone encounter Joan Johnson APRN.CLEAN UP WORKER Work Phone: Family Medicine [place] Comment on above: Medication Problem Start: 04-07-2023 Refill Maryam West Work Phone: Internal Medicine [place] Comment on above: Refill Request Start: 03-26-2023 Telephone encounter Maryam france MD Work Phone: Internal Medicine [place] Comment on above: Insurance Authorizat ion Start: 03-25-2023 End: 03-25-2023 Patient encounter procedure Joan Johnson APRN.CLEAN UP WORKER Work Phone: Internal Medicine [place] Comment on above: Insomnia, unspecifie d type (Primary Dx); Anemia, unspecified type; Elevated liver enzymes; Mixed hyperlipidemia Start: 03-09-2023 ambulatory Maryam West Work Phone: [facility] [place] Start: 03-04-2023 Refill Maryam West Work Phone: Internal Medicine [place] Comment on above: Refill Request Start: 03-01-2023 Refill Maryam West Work Phone: Internal Medicine [place] Comment on above: Refill Request Start: 02-15-2023 Refill Maryam West Work Phone: Internal Medicine [place] Comment on above: Refill Request Start: 02-05-2023 End: 02-05-2023 Patient encounter procedure Joanie Benitez PA-C Work Phone: Internal Medicine [place] Comment on above: Insomnia, unspecifie d type (Primary Dx) Start: 02-02-2023 Telephone encounter Maryam france MD Work Phone: [facility] Comment on above: Medication Request Refill Request Start: 01-06-2023 Refill Maryam West Work Phone: Internal Medicine [place] Comment on above: Refill Request Start: 11-13-2022 End: 11-13-2022 Patient encounter procedure Joan Johnson APRN.CNP Work Phone: Internal Medicine [place] Comment on above: History of recent ho spitalization (Primary Dx); Chronic obstructive pulmonary disease, unspecified COPD type (HCC); Insomnia, unspecified type; Anemia, unspecified type; Elevated liver enzymes; Medication monitoring encounter Start: 11-12-2022 Telephone encounter Maryam france MD Work Phone: Internal Medicine [place] Comment on above: Longterm Plan of Care Start: 11-10-2022 Telephone encounter Maryam france MD Work Phone: Internal Medicine [place] Comment on above: Speech Therapy Forms Start: 11-04-2022 Telephone encounter Maryam france MD Work Phone: Family [facility] [place] Comment on above: Medication Update Start: 11-03-2022 [...] [place] Comment on above: Refill Request Start: 10-23-2022 Telephone encounter Maryam france MD Work Phone: Internal Medicine [place] Comment on above: Request Medication L ist Start: 10-22-2022 Telephone encounter Joan Johnson APRN.CLEAN UP WORKER Work Phone: Internal Medicine [place] Comment on above: Results [facility] Update Start: 10-19-2022 Refill Maryam West Work Phone: Internal Medicine [place] Comment on above: Refill Request Start: 10-16-2022 Telephone encounter Joan Johnson APRN.CLEAN UP WORKER Work Phone: Internal Medicine [place] Comment on above: Medication Problem Start: 10-16-2022 End: 10-16-2022 Patient encounter procedure Joan Johnson APRN.CLEAN UP WORKER Work Phone: Internal Medicine [place] Comment on above: History of recent ho spitalization (Primary Dx); Chronic obstructive pulmonary disease, unspecified COPD type (HCC); Chronic hypercapnic respiratory failure (HCC); Decompensated heart failure (HCC); RLS (restless legs syndrome); Generalized pain Start: 10-15-2022 Telephone encounter Maryam france MD Work Phone: Internal Medicine [place] Comment on above: Medication Request [facility] PT POC Start: 10-14-2022 Telephone encounter Maryam france MD Work Phone: Internal Medicine [place] Comment on above: home health asking f or verbal orders Start: 10-13-2022 Telephone encounter Maryam france MD Work Phone: Internal Medicine [place] Comment on above: home health calling Start: 10-01-2022 End: 10-01-2022 Patient encounter procedure Maryam Franco MD Work Phone: Internal Medicine [place] Comment on above: Panlobular emphysema (HCC) (Primary Dx); Chronic obstructive pulmonary disease, unspecified COPD type (HCC); Chronic hypercapnic respiratory failure (HCC); Anxiety; Carcinoma in situ of left breast, unspecified type; Insomnia, unspecified type; Screening mammogram for breast cancer; Hemorrhagic stroke (HCC); Mixed hyperlipidemia; Sleep apnea, unspecified type Start: 09-24-2022 Telephone encounter Maryam france MD Work Phone: Internal Medicine [place] Comment on above: Medication Problem Start: 09-21-2022 Refill Maryam West Work Phone: Internal Medicine [place] Comment on above: Refill Request Start: 09-01-2022 Telephone encounter Maryam france MD Work Phone: Internal Medicine [place] Comment on above: Insurance Authorizat ion Start: 08-20-2022 Telephone encounter Maryam france MD Work Phone: Internal Medicine [place] Comment on above: Release Of Medical R ecords Start: 08-19-2022 End: 08-19-2022 Patient encounter procedure Maryam Franco MD Work Phone: Internal Medicine [place] Comment on above: Hospital discharge f ollow-up (Primary Dx); Insomnia, unspecified type; Gastrojejunostomy tube status (HCC); Chronic obstructive pulmonary disease, unspecified COPD type (HCC); Chronic hypercapnic respiratory failure (HCC); Chronic pulmonary heart disease (HCC); Panlobular emphysema (HCC); Malnutrition of mild degree (HCC); Anxiety; S/P tracheoplasty Start: 08-18-2022 Refill Maryam West Work Phone: Internal Medicine [place] Comment on above: Refill Request Start: 08-05-2022 Telephone encounter Pushpa Esquivel MD Work Phone: Neurology Comment on above: Appointment Appointment (Needs r escheduled /) Start: 08-04-2022 End: 08-17-2022 ambulatory MARYAM FRANCO [facility]:[id number] Start: 06-30-2022 ambulatory Maryam West Work Phone: [facility] [place] Start: 05-15-2022 Refill Maryam West Work Phone: Internal Medicine [place] Comment on above: Refill Request Start: 04-03-2022 [...] 03-26-2022 End: 03-26-2022 Patient encounter procedure Joan Johnson APRN.CNP Work Phone: Internal Medicine [place] Comment on above: Urinary tract infect ion without hematuria, site unspecified (Primary Dx); Fall, sequela; Closed nondisplaced fracture of seventh cervical vertebra, unspecified fracture morphology, sequela; Laceration of head without foreign body, unspecified part of head, sequela Start: 03-13-2022 Telephone encounter Maryam france MD Work Phone: Internal Medicine [place] Comment on above: Discharge from Start: 03-10-2022 Telephone encounter Maryam france MD Work Phone: Internal Medicine [place] Comment on above: Patient Update Start: 03-05-2022 Telephone encounter Maryam france MD Work Phone: Internal Medicine [place] Comment on above: Results Start: 03-03-2022 Telephone encounter Maryam france MD Work Phone: Internal Medicine [place] Comment on above: ST missed visit this week with the patient Start: 02-19-2022 Telephone encounter Maryam france MD Work Phone: Internal Medicine [place] Comment on above: FYI-ST plan of care Start: 02-16-2022 Telephone encounter Maryam france MD Work Phone: Internal Medicine [place] Comment on above: [facility]/medicat ion request/verbal orders Start: 02-12-2022 Telephone encounter Maryam france MD Work Phone: Family Medicine [place] Comment on above: Patient Question Start: 02-03-2022 Telephone encounter Maryam france MD Work Phone: Family Medicine [place] Comment on above: Home Health Point of Care Results Start: 01-29-2022 Evaluation and manag ement of inpatient SEVERO JURADO Facility:[facility] Start: 01-27-2022 End: 02-09-2022 Evaluation and management of inpatient ANALY LARSON DO Rian Jaramillo Start: 01-27-2022 ambulatory Maryam West Work Phone: Internal Medicine [facility] Start: 01-11-2022 ambulatory MARYAM FRANCO Facility :[facility] Start: 01-09-2022 End: 01-09-2022 ambulatory UNKNOWN PROVIDER Facility:[facility] Start: 01-08-2022 End: 01-27-2022 Evaluation and management of inpatient RADHA SHAY Facility:[facility] Start: 01-08-2022 End: 01-27-2022 Evaluation and management of inpatient Pablo Barraza MD Work Phone: [facility] Start: 12-29-2021 ambulatory Maryam West Work Phone: Internal Medicine [place] Comment on above: Nurse Triage Call (c ongestion; coughing, wheezing; started on 12/28) Start: 12-23-2021 End: 12-23-2021 Patient encounter procedure Maryam Franco MD Work Phone: Internal Medicine [place] Comment on above: Anxiety (Primary Dx) ; Insomnia, unspecified type; Essential hypertension Start: 12-06-2021 End: 12-06-2021 Patient encounter procedure Pablo Bedoya APRN.CNP Work Phone: [facility] Comment on above: Procedure not jordan d out (Primary Dx) Start: 12-04-2021 Telephone encounter Maryam france MD Work Phone: Internal Medicine [place] Comment on above: Medication Problem; Medication Request Start: 11-22-2021 Refill Maryam West Work Phone: Family Medicine [place] Comment on above: Refill Request Start: 11-06-2021 Telephone encounter Maryam france MD Work Phone: Internal Medicine [place] Comment on above: Results Start: 11-03-2021 End: 11-03-2021 Patient encounter procedure Maryam Franco MD Work Phone: Internal Medicine [place] Comment on above: Congestive heart yevgeniy lure, unspecified HF chronicity, unspecified heart failure type (HCC) (Primary Dx); Pedal edema; Diastolic dysfunction; Chronic obstructive pulmonary disease, unspecified COPD type (HCC) Start: 10-23-2021 Refill Maryam West Work Phone: Internal Medicine [place] Comment on above: Refill Request Start: 10-16-2021 Telephone encounter Maryam france MD Work Phone: Internal Medicine [place] Comment on above: Appointment Start: 10-15-2021 Telephone encounter Maryam france MD Work Phone: Internal Medicine [place] Comment on above: ECHO denied and canc elled Start: 10-13-2021 Telephone encounter Maryam france MD Work Phone: Internal Medicine [place] Comment on above: Referral Request Start: 10-10-2021 Chart abstracting Maryam Franco MD Work Phone: Family Medicine [place] Comment on above: Refill Request Start: 10-08-2021 End: 10-08-2021 Patient encounter procedure Maryam Franco MD Work Phone: Internal Medicine [place] Comment on above: GUME (acute kidney in jury) (HCC) (Primary Dx); Insomnia, unspecified type; Pedal edema; Impacted stool in intestine (HCC); Hypervolemia, unspecified hypervolemia type; Congestive heart failure, unspecified HF chronicity, unspecified heart failure type (HCC); Cardiomegaly Start: 09-29-2021 Telephone encounter Maryam france MD Work Phone: Internal Medicine [place] Comment on above: Home Health Orders Start: 09-07-2021 End: 09-07-2021 Emergency department patient visit BRAD THOMAS MD [facility] Start: 02-25-2018 Ambulatory DYLON MOONEY Facility :[facility] Start: 08-19-2017 End: 08-19-2017 Ambulatory DYLON MOONEY Facility:[facility] Start: 02-10-2017 Evaluation and manag ement of inpatient UNKNOWN PROVIDER [facility] Procedures Date Procedure Procedure Detail Performing Clinician [...] Basic metabolic pane l calcium total Adriano Mrar DO Work Phone: Start: 02-07-2024 Basic metabolic pane l calcium total Adriano Marr DO Work Phone: Start: 02-07-2024 Blood gases any comb ination ph pco2 po2 co2 hco3 Mildred Villafuerte DO Work Phone: Start: 02-07-2024 Radiologic exam ches t single view Mildred Villafuerte DO Work Phone: Start: 02-06-2024 Basic metabolic [...] 12 lds trcg only w/o i&r Oleg Dougherty MD Work Phone: Start: 02-01-2024 RESPIRATORY THERAPY COMMUNICATION ORDER Radha Spence DO Work Phone: Start: 02-01-2024 End: 02-02-2024 Basic metabolic panel calcium total Adriano Marr DO Work Phone: Start: 02-01-2024 Blood gases any comb ination ph pco2 po2 co2 hco3 Radha Champion Rice DO Work Phone: Start: 01-31-2024 Blood gases any comb ination ph pco2 po2 co2 hco3 Oleg Dougherty MD Work Phone: Start: 01-31-2024 Ct head/brain w/o co ntrast material Radha Champion Rice DO Work Phone: Start: 01-31-2024 Blood gases any comb ination ph pco2 po2 co2 hco3 Radha Champion Rice DO Work Phone: Start: 01-31-2024 Basic metabolic [...] metabolic pane l calcium total Pablo Lama PUBLIC WORKS MANAGER - CLEAN UP WORKER Work Phone: Start: 10-11-2023 Basic metabolic pane l calcium total Pablo Lama PUBLIC WORKS MANAGER - CLEAN UP WORKER Work Phone: Start: 10-10-2023 Radiologic exam abdomen 1 view Christophe Leisar DO Work Phone: Start: 10-10-2023 Basic metabolic pane l calcium total Pablo Lama PUBLIC WORKS MANAGER - CLEAN UP WORKER Work Phone: Start: 10-09-2023 Basic metabolic pane l calcium total Pablo Lama PUBLIC WORKS MANAGER - CLEAN UP WORKER Work Phone: Start: 10-08-2023 Glucose quantitative blood xcpt reagent strip Christophe IZP Technologiessar DO Work Phone: Start: 10-08-2023 Glucose quantitative blood xcpt reagent strip Christophe IZP Technologiessar DO Work Phone: Start: 10-08-2023 End: 10-08-2023 Basic metabolic panel calcium total Pablo Lama PUBLIC WORKS MANAGER - CLEAN UP WORKER Work Phone: Start: 10-07-2023 Blood count hematocrit Pablo Lama PUBLIC WORKS MANAGER - CLEAN UP WORKER Work Phone: Start: 10-07-2023 Blood gases any comb ination ph pco2 po2 co2 hco3 Marisela Fernandez MD Start: 10-07-2023 Radiologic exam ches t single view Lauryn Acierno PUBLIC WORKS MANAGER - CLEAN UP WORKER Work Phone: Start: 10-07-2023 Basic metabolic pane l calcium total Pablo Lama PUBLIC WORKS MANAGER - CLEAN UP WORKER Work Phone: Start: 10-06-2023 Ecg routine ecg w/le ast 12 lds trcg only w/o i&r Lauryn Acierno PUBLIC WORKS MANAGER - CLEAN UP WORKER Work Phone: Start: 10-06-2023 Blood gases any comb ination ph pco2 po2 co2 hco3 Lauryn Acierno PUBLIC WORKS MANAGER - CLEAN UP WORKER Work Phone: Start: 10-06-2023 Basic metabolic pane l calcium total Pablo Lama PUBLIC WORKS MANAGER - CLEAN UP WORKER Work Phone: Start: 10-05-2023 Tracheobrnchsc thru est trachs inc Tolu Soto DO Work Phone: Start: 10-05-2023 Radiologic exam ches t single view Mildred Villafuerte DO Work Phone: Start: 10-05-2023 Blood count hematocrit Lauryn Acierno PUBLIC WORKS MANAGER - CLEAN UP WORKER Work Phone: Start: 10-05-2023 Compatibility each u nit electronic Lauryn Acierno PUBLIC WORKS MANAGER - CLEAN UP WORKER Work Phone: Start: 10-05-2023 End: 10-05-2023 TRANSFUSE RED BLOOD CELLS Lauryn Acierno PUBLIC WORKS MANAGER - CLEAN UP WORKER Work Phone: Start: 10-05-2023 Radiologic exam ches t single view Lauryn Acierno PUBLIC WORKS MANAGER - CLEAN UP WORKER Work Phone: Start: 10-05-2023 Basic metabolic pane l calcium total Pablo Lama PUBLIC WORKS MANAGER - CLEAN UP WORKER Work Phone: Start: 10-05-2023 Radiologic exam abdomen 1 view Lauryn Acierno PUBLIC WORKS MANAGER - CLEAN UP WORKER Work Phone: Start: 10-05-2023 Blood gases any comb ination ph pco2 po2 co2 hco3 Lauryn Acierno PUBLIC WORKS MANAGER - CLEAN UP WORKER Work Phone: Start: 10-04-2023 End: 10-04-2023 Egd percutaneous placement gastrostomy tube Seth Muller MD Work Phone: Start: 10-04-2023 End: 10-04-2023 Tracheostomy planned separate procedure Seth Muller MD Work Phone: Start: 10-04-2023 Blood count hematocrit Elijah Tyler MD Work Phone: Start: 10-04-2023 Antibody screen PCP NON E Comment on above: Performed By: #### L [id number] ####[facility]: ROSALVA LOPEZ ([id number])[facility] ([facility])[address] [place] [address] Start: 10-04-2023 ABO and Rh group [Ty pe] in Blood by Confirmatory method Des Sutton MD Work Phone: Start: 10-04-2023 Blood typing serologic rh (d) Des Sutton MD Work Phone: Start: 10-04-2023 Radiologic exam ches t single view Mildred Smith APRN - CLEAN UP WORKER Work Phone: Start: 10-04-2023 Basic metabolic pane l calcium total Pablo Lama PUBLIC WORKS MANAGER - CLEAN UP WORKER Work Phone: Start: 10-04-2023 Blood gases any comb ination ph pco2 po2 co2 hco3 Mildred Smith APRN - CLEAN UP WORKER Work Phone: Start: 10-03-2023 Ecg routine ecg w/le ast 12 lds trcg only w/o i&r Mildred Smith APRN - CLEAN UP WORKER Work Phone: Start: 10-03-2023 Assay of thyroid sti mulating hormone tsh Mildred Smith APRN - CLEAN UP WORKER Work Phone: Start: 10-03-2023 Smr prim src gram/gi emsa stain bct fungi/cell Mildred Smith APRN - CLEAN UP WORKER Work Phone: Start: 10-03-2023 Blood gases any comb ination ph pco2 po2 co2 hco3 Mildred Smith APRN - CLEAN UP WORKER Work Phone: Start: 10-03-2023 Radiologic exam ches t single view Mildred Smith APRN - [employer] WORK[employer] Work Phone: Start: 10-03-2023 Radiologic exam abdomen 1 view Mildred Smith APRN - [employer] WORK[employer] Work Phone: Start: 10-03-2023 Intubation endotrach eal emergency procedure Mildred Smith APRN - [employer] WORK[employer] Work Phone: Start: 10-03-2023 Blood gases any comb ination ph pco2 po2 co2 hco3 Mildred Smith APRN - [employer] WORK[employer] Work Phone: Start: 10-03-2023 Radiologic exam abdomen 1 view Mildred Smith PUBLIC WORKS MANAGER - [employer] Work Phone: Start: 10-03-2023 Basic metabolic pane l calcium total Pablo Lama PUBLIC WORKS MANAGER - [employer] WORK[employer] Work Phone: Start: 10-02-2023 Blood gases any comb ination ph pco2 po2 co2 hco3 Elijah Tyler MD Work Phone: Start: 10-02-2023 Blood gases any comb ination ph pco2 po2 co2 hco3 Elijah Tyler MD Work Phone: Start: 10-02-2023 EXTUBATION Mildred man PUBLIC WORKS MANAGER - [employer] Work Phone: Start: 10-02-2023 Radiologic exam ches t single view Mildred Smith PUBLIC WORKS MANAGER - [employer] Work Phone: Start: 10-02-2023 Radiologic exam abdomen 1 view Mildred Smith PUBLIC WORKS MANAGER - [employer] Work Phone: Start: 10-02-2023 Basic metabolic pane l calcium total Pablo Lama PUBLIC WORKS MANAGER - [employer] Work Phone: Start: 10-01-2023 Ct abdomen & pelvis w/o contrast material Mildred Smith PUBLIC WORKS MANAGER - [employer] UP WORK[employer] Work Phone: Start: 10-01-2023 Radiologic exam abdomen 1 view Mildred Smith PUBLIC WORKS MANAGER - [employer] WORK[employer] Work Phone: Start: 10-01-2023 Radiologic exam ches t single view Mildred Smith PUBLIC WORKS MANAGER - [employer] WORK[employer] Work Phone: Start: 10-01-2023 Basic metabolic pane l calcium total Pablo Lama PUBLIC WORKS MANAGER - [employer] UP WORK[employer] Work Phone: Start: 09-30-2023 Radiologic exam ches t single view Elijah Tyler MD Work Phone: Start: 09-30-2023 Procalcitonin (pct) Hugh Smith PUBLIC WORKS MANAGER - CLE[employer] UP WORK[employer] Work Phone: Start: 09-30-2023 Blood gases any comb ination ph pco2 po2 co2 hco3 Elijah Tyler MD Work Phone: Start: 09-30-2023 Basic metabolic pane l calcium total Pablo Lama PUBLIC WORKS MANAGER - [employer] WORK[employer] Work Phone: Start: 09-29-2023 Blood gases any comb ination ph pco2 po2 co2 hco3 Mildred Smith APRN - [employer] UP WORK[employer] Work Phone: Start: 09-29-2023 Radiologic exam ches t single view Mildred Smith PUBLIC WORKS MANAGER - [employer] WORK[employer] Work Phone: Start: 09-29-2023 Basic metabolic pane l calcium total Pablo Lama PUBLIC WORKS MANAGER - [employer] WORK[employer] Work Phone: Start: 09-29-2023 Manual Differential panel - Blood Yuridia Pierre DO Work Phone: Start: 09-28-2023 Blood gases any comb ination ph pco2 po2 co2 hco3 Mildred Smith APRN - [employer] WORK[employer] Work Phone: Start: 09-28-2023 Ecg routine ecg w/le ast 12 lds trcg only w/o i&r Mildred Smith APRN - [employer] WORK[employer] Work Phone: Start: 09-28-2023 Radiologic exam ches t single view Severo Hurst DO Work Phone: Start: 09-28-2023 Blood gases any comb ination ph pco2 po2 co2 hco3 Yanet Aguilar MD Work Phone: Start: 09-28-2023 Intubation endotrach eal emergency procedure Mildred Smith APRN - [facility] Work Phone: Start: 09-28-2023 TTE w or wo fol wcon,Doppler Emma Nice PUBLIC WORKS MANAGER - [employer] UP WORK[employer] Work Phone: Start: 09-28-2023 Comprehensive metabolic panel Pablo Lama PUBLIC WORKS MANAGER - [employer] WORK[employer] Work Phone: Start: 09-27-2023 Mri brain brain stem w/o w/contrast material Emma Nice PUBLIC WORKS MANAGER - [employer] WORK[employer] Work Phone: Start: 09-27-2023 Assay of phosphorus inorganic Mildred Smith PUBLIC WORKS MANAGER - [employer] WORK[employer] Work Phone: Start: 09-27-2023 Radiologic examinati on pelvis 1/2 views Leobardo Corbin MD Work Phone: Start: 09-27-2023 Radiologic exam ches t single view Mildred Smith APRN - [facility] Work Phone: Start: 09-27-2023 End: 09-27-2023 Bacteria identified in Blood by Culture Mildred Smith PUBLIC WORKS MANAGER - [facility] Work Phone: Start: 09-27-2023 Assay of lactate Mary Smith PUBLIC WORKS MANAGER - [facility] Work Phone: Start: 09-27-2023 Respiratory pathogen s DNA and RNA panel - Nasopharynx by MERISSA with non-probe detection Mildred Smith [facility] Work Phone: Start: 09-27-2023 Blood gases any comb ination ph pco2 po2 co2 hco3 Yanet Aguilar MD Work Phone: Start: 09-27-2023 End: 09-27-2023 Smr prim src gram/giemsa stain bct fungi/cell Mildred Smith [facility] Work Phone: Start: 09-27-2023 Comprehensive metabolic panel Pablo Lama [facility] Work Phone: Start: 09-27-2023 Drug screen quantita tive phenytoin total Chester Fling DO Work Phone: Start: 09-27-2023 Ct angiography chest w/contrast/noncontrast Yuridia Ignacio DO Work Phone: Start: 09-27-2023 Ct head/brain w/o co ntrast material Chester Fling DO Work Phone: Start: 09-26-2023 Electroencephalogram w/rec awake&drowsy Chester Fling DO Work Phone: Start: 09-26-2023 End: 09-26-2023 Basic metabolic panel calcium total Pablo Lama [facility] Work Phone: Start: 09-26-2023 Drug screen [...] 12 lds trcg only w/o i&r Yuridia Ignacio DO Work Phone: Start: 09-26-2023 Radiologic exam abdomen 1 view Yuridia Pierre DO Work Phone: Start: 09-26-2023 Radiologic exam ches t single view Yuridia Ignacio DO Work Phone: Start: 09-23-2023 Culture bacterial qu anttative colony count urine Joanie [employer] Work Phone: Start: 09-23-2023 Drug tst prsmv instr mnt chem analyzers pr date [employer] Work Phone: Start: 09-23-2023 Urnls dip stick/tabl et rgnt auto w/o microscopy [facility] [employer] Work Phone: Start: 08-05-2023 Antibody screen ALI MAL LAT Comment on above: Order Comment: Speci men Type: BLOOD SPECIMENOrdering Facility: [facility] Address: [address] [place] [address] Performed By: #### T SCR ####[facility] BLOOD BANKCLIA [id number] [place] [address] [place] Start: 04-12-2023 Lipid 1996 panel - S brunilda or Plasma Joan Johnson PUBLIC WORKS MANAGER.CLE[employer] UP WORKER Work Phone: Start: 01-27-2022 SARS-CoV-2 (COVID-19 ) RNA [Presence] in Unspecified specimen by MERISSA with probe detection Rakesh Ta MD Work Phone: Start: 01-26-2022 End: 01-27-2022 Assay of magnesium Deborah Amador PUBLIC WORKS MANAGER-CLE[employer] UP WORKER Work Phone: Start: 01-25-2022 EXTRA MICRO Joy flores MD Work Phone: Start: 01-25-2022 URINALYSIS REFLEX TO CULTURE Joy Rawls MD Work Phone: Start: 01-25-2022 Urnls dip stick/tabl et reagent auto microscopy Joy Rawls MD Work Phone: Start: 01-25-2022 Assay of magnesium Elvie gracia Amador PUBLIC WORKS MANAGER-CLEAN UP WORKER Work Phone: Start: 01-24-2022 Assay of magnesium Elvie gracia Amador PUBLIC WORKS MANAGER-CLE[employer] UP WORKER Work Phone: Start: 01-23-2022 End: 01-23-2022 Assay of magnesium Deborahmellissa Amador PUBLIC WORKS MANAGER-CLE[employer] UP WORKER Work Phone: Start: 01-22-2022 Blood count hematocrit Rakesh Ta MD Work Phone: Start: 01-22-2022 Assay of magnesium Elvie gracia Amador PUBLIC WORKS MANAGER-CLEAN UP WORKER Work Phone: Start: 01-21-2022 CARDIAC RHYTHM (SCANNED) Other Other Start: 01-21-2022 Ct head/brain w/o co ntrast material Nicole Castaneda MD Work Phone: Start: 01-21-2022 End: 01-21-2022 CRANIOPLASTY FOR SKULL DEFECT Severo wolf MD Work Phone: Start: 01-21-2022 End: 01-21-2022 Antibody screen Pablo Barraza MD Work Phone: Comment on above: Performed By: #### X M ####[facility] (DEFAULT)[address] [place] [address] Start: 01-21-2022 Iadna s aureus ampli fied probe tq Rakesh Ta MD Work Phone: Start: 01-21-2022 Assay of magnesium Elvie gracia Amador PUBLIC WORKS MANAGER-CLEAN UP WORKER Work Phone: Start: 01-21-2022 Blood typing [...] 01-20-2022 Assay of magnesium Elvie gracia Amador PUBLIC WORKS MANAGER-CLE[employer] UP WORKER Work Phone: Start: 01-19-2022 Assay of magnesium Elvie gracia Amador PUBLIC WORKS MANAGER-CLE[employer] UP WORKER Work Phone: Start: 01-18-2022 Assay of magnesium Elvie gracia Amador PUBLIC WORKS MANAGER-CLEAN UP WORKER Work Phone: Start: 01-17-2022 Glucose measurement, [...] 01-16-2022 Assay of magnesium Elvie gracia Amador PUBLIC WORKS MANAGER-CLE[employer] UP WORKER Work Phone: Start: 01-15-2022 Blood count hematocrit Hieu Nava MD Work Phone: Start: 01-15-2022 End: 01-15-2022 Transfusion of packed red blood cells Cheo Jack MD Work Phone: Start: 01-15-2022 End: 01-15-2022 Antibody screen Pablo Barraza MD Work Phone: Comment on above: Performed By: #### X M #### [facility] ([facility] [address] [place] [address] Start: 01-15-2022 Blood typing serologic abo Cheo Jack MD Work Phone: Start: 01-15-2022 PREPARE TO TRANSFUSE RED BLOOD CELLS Cheo Jack MD Work Phone: Start: 01-15-2022 Assay of magnesium Elvie Amador PUBLIC WORKS MANAGER-CLEAN UP WORKER Work Phone: Start: 01-13-2022 Assay of magnesium Elvie gracia Amador PUBLIC WORKS MANAGER-CLEAN UP WORKER Work Phone: Start: 01-13-2022 Glucose measurement, blood Severo Jurado MD Work Phone: Start: 01-13-2022 Glucose measurement, blood Severo Jurado MD Work Phone: Start: 01-13-2022 Glucose measurement, blood Severo Jurado MD Work Phone: Start: 01-13-2022 Blood count complete automated Deborah Amador PUBLIC WORKS MANAGER-CLEAN UP WORKER Work Phone: Start: 01-13-2022 Glucose measurement, blood Severo Jruado MD Work Phone: Start: 01-13-2022 Assay of magnesium Elvie Amador PUBLIC WORKS MANAGER-CLEAN UP WORKER Work Phone: Start: 01-12-2022 Glucose measurement, blood Severo Jurado MD Work Phone: Start: 01-12-2022 CONTINUOUS CARDIAC M ONITORING STRIP Other Other Start: 01-12-2022 Glucose measurement, blood Severo Jurado MD Work Phone: Start: 01-12-2022 Glucose measurement, blood Severo Jurado MD Work Phone: Start: 01-12-2022 Assay of magnesium Elvie gracia Elza Perry PUBLIC WORKS MANAGER-CLEAN UP WORKER Work Phone: Start: 01-11-2022 Glucose measurement, blood Severo Jurado MD Work Phone: Start: 01-11-2022 Glucose measurement, blood Severo Jurado MD Work Phone: Start: 01-11-2022 End: 01-11-2022 Glucose measurement, blood Severo carson MD Work Phone: Start: 01-11-2022 Glucose measurement, blood Severo Jurado MD Work Phone: Start: 01-11-2022 Assay of magnesium Elvie Amador PUBLIC WORKS MANAGER-CLE[employer] UP WORKER Work Phone: Start: 01-10-2022 Glucose measurement, blood Severo Jurado MD Work Phone: Start: 01-10-2022 Radiologic exam abdomen 1 view Dionicio Pacheco PUBLIC WORKS MANAGER-CLEAN UP WORKER Work Phone: Start: 01-10-2022 Glucose measurement, blood Veronica Velez MD Work Phone: Start: 01-10-2022 Glucose measurement, blood Veronica Velez MD Work Phone: Start: 01-09-2022 Glucose measurement, blood Jason Nassar MD Work Phone: Start: 01-09-2022 Assay of magnesium Elvie Amador PUBLIC WORKS MANAGER-CLEAN UP WORKER Work Phone: Start: 01-09-2022 Radiologic exam ches t single view Dionicio Pacheco PUBLIC WORKS MANAGER-CLEAN UP WORKER Work Phone: Start: 01-09-2022 Glucose measurement, blood Jason Nassar MD Work Phone: Start: 01-09-2022 Glucose measurement, blood Jason Nassar MD Work Phone: Start: 01-09-2022 Retired procedure Dionicio Pacheco PUBLIC WORKS MANAGER-CLEAN UP WORKER Work Phone: Start: 01-09-2022 Echo tthrc r-t 2d w/ wom-mode compl spec&colr d Deborah Amador PUBLIC WORKS MANAGER-CLE[employer] UP WORKER Work Phone: Start: 01-09-2022 Glucose measurement, blood Veronica Velez MD Work Phone: Start: 01-09-2022 Radiologic exam abdomen 1 view Deborah Amador PUBLIC WORKS MANAGER-CLE[employer] UP WORKER Work Phone: Start: 01-09-2022 Radiologic exam ches t single view Deborah Amador PUBLIC WORKS MANAGER-CLEAN UP WORKER Work Phone: Start: 01-09-2022 End: 01-09-2022 Culture bct isol&prsmptv id isolate ea urine Deborah Amador PUBLIC WORKS MANAGER-CLE[employer] UP WORKER Work Phone: Start: 01-09-2022 Drug tst prsmv instr mnt chem analyzers pr date Deborah Amador PUBLIC WORKS MANAGER-CLEAN UP WORKER Work Phone: Start: 01-09-2022 EXTRA MICRO Deborah Aamdor PUBLIC WORKS MANAGER-CLEAN UP WORKER Work Phone: Start: 01-09-2022 URINALYSIS REFLEX TO CULTURE Deborah Amador PUBLIC WORKS MANAGER-CLEAN UP WORKER Work Phone: Start: 01-09-2022 Blood gases any comb ination ph pco2 po2 co2 hco3 Deborah Amador PUBLIC WORKS MANAGER-CLE[employer] UP WORKER Work Phone: Start: 01-09-2022 Creatine kinase total C fredy Amador PUBLIC WORKS MANAGER-CLEAN UP WORKER Work Phone: Start: 01-09-2022 End: 01-09-2022 Glucose measurement, blood Veronica cooley MD Work Phone: Start: 01-09-2022 IP CONSULT TO SPEECH THERAPY Deborah Amador PUBLIC WORKS MANAGER-CLEAN UP WORKER Work Phone: Start: 01-08-2022 End: 01-08-2022 Transfusion of packed red blood cells Lindsay Lemus MD, PhD Work Phone: Start: 01-08-2022 Ct head/brain w/o co ntrast material Lowell Bryant MD Work Phone: Start: 01-08-2022 ABORH TYPE RECONFIRMATION Pepper Steinberg MD Work Phone: Start: 01-08-2022 Assay of magnesium Elvira Bryant MD Work Phone: Start: 01-08-2022 CBC AND ELECTRONIC DIFF Lowell Bryant MD Work Phone: Start: 01-08-2022 Complete blood count with white cell differential, automated Lowell Bryant MD Work Phone: Start: 01-08-2022 Lipid panel Deborah Amador PUBLIC WORKS MANAGER-CLEAN UP WORKER Work Phone: Start: 01-08-2022 Calcium ionized Carlton Stephanie BARRETO Work Phone: Start: 01-08-2022 Antibody screen RADHA DAY Comment on above: Performed By: #### X M #### [facility] ([facility] [address] [place] [address] Start: 01-08-2022 End: 01-08-2022 TRANSFUSE OR PLATELETS [...] Work Phone: Start: 01-08-2022 RAINBOW DRAW Kailee Lyno MD Work Phone: Start: 01-08-2022 Glucose measurement, blood Nelson Carmona MD Work Phone: Start: 01-08-2022 Lipid 1996 panel - S brunilda or Plasma Joan Johnson APRN.CNP Work Phone: Start: 12-23-2021 Adult depression scr [...] panel - Serum or Plasma Lipid Screening [facility] Start: 04-12-2028 Lipid panel Lipid Screening [facility] Start: 02-11-2027 Diabetes Screening Diabetes Screening [facility] Start: 01-08-2027 Fasting lipid profile [facility] Start: 01-08-2027 Lipid 1996 panel - Serum or Plasma Lipid Screening [facility] Start: 01-08-2027 L[address]EN LIPID SCREEN [facility] Start: 11-07-2026 Diabetes Screening Diabetes Screening [facility] Start: 10-11-2026 Diabetes Screening Diabetes Screening [facility] Start: 08-20-[address] [facility] Start: 08-20-2026 COLORECTAL CANCER SCREENING COLORECTAL CANCER SCREENING [facility] Start: 08-20-2026 Screening for malignant neoplasm of colon [facility] Start: 08-17-2026 Diabetes Screening Diabetes Screening [facility] Start: 08-10-2026 Diabetes Screening Diabetes Screening [facility] Start: 08-05-2026 Diabetes Screening Diabetes Screening [facility] Start: 05-06-2026 Diabetes Screening Diabetes Screening [facility] Start: 04-12-2026 Diabetes Screening Diabetes Screening [facility] Start: 11-16-[address] L[address]ID SCREEN [facility] Start: 10-19-2025 DIABETES SCREEN DIABETES SCREEN [facility] Start: 10-19-2025 Diabetes Screening Diabetes Screening [facility] Start: 08-17-2025 DIABETES SCREEN DIABETES SCREEN [facility] Start: 08-06-2025 DIABETES SCREEN DIABETES SCREEN [facility] Start: 08-04-2025 DIABETES SCREEN DIABETES SCREEN [facility] Start: 04-25-2025 Annual PCP Team Chronic Disease Visit Annual PCP Team Chronic Disease Visit [facility] Start: 04-25-2025 BP Controlled (<130/80) BP Controlled (<130/80) [facility] Start: 03-13-2025 Annual PCP Team Chronic Disease Visit Annual PCP Team Chronic Disease Visit [facility] Start: 03-13-2025 BP Controlled (<130/80) BP Controlled (<130/80) [facility] Start: 03-04-2025 DI[address]ES [address]EN DI[address]ES SCREEN [facility] Start: 02-22-2025 Annual PCP Team Chronic Disease Visit Annual PCP Team Chronic Disease Visit [facility] Start: 02-22-2025 BP Controlled (<130/80) BP Controlled (<130/80) [facility] Start: 02-16-2025 Annual PCP Team Chronic Disease Visit Annual PCP Team Chronic Disease Visit [facility] Start: 02-16-2025 BP Controlled (<130/80) BP Controlled (<130/80) [facility] Start: 02-11-2025 Creatinine measurement [facility] Start: 02-11-2025 Potassium measurement [facility] Start: 02-11-2025 [facility] Start: 01-09-2025 DIABETES SCREEN DIABETES SCREEN [facility] Start: 01-02-2025 Annual PCP Team Chronic Disease Visit Annual PCP Team Chronic Disease Visit [facility] Start: 01-02-2025 BP Controlled (<130/80) BP Controlled (<130/80) [facility] Start: 12-01-2024 Annual PCP Team Chronic Disease Visit Annual PCP Team Chronic Disease Visit [facility] Start: 12-01-2024 BP Controlled (<130/80) BP Controlled (<130/80) [facility] Start: 11-03-2024 DIABETES SCREEN DIABETES SCREEN [facility] Start: 10-11-2024 Creatinine measurement [facility] Start: 10-11-2024 Potassium measurement [facility] Start: 10-10-2024 DIABETES SCREEN DIABETES SCREEN [facility] Start: 09-27-2024 [facility] Start: 09-22-2024 Annual PCP Team Chronic Disease Visit Annual PCP Team Chronic Disease Visit [facility] Start: 09-22-2024 BP Controlled (<130/80) BP Controlled (<130/80) [facility] Start: 08-17-2024 Annual PCP Team Chronic Disease Visit Annual PCP Team Chronic Disease Visit [facility] Start: 08-17-2024 BP Controlled (<130/80) BP Controlled (<130/80) [facility] Start: 07-26-2024 End: 07-26-2024 Patient encounter procedure 07/26/2024 11:30 AM EST Office Visit Pulmonary Medicine [address] [place] [address] Keysha Farr APRN.CLEAN UP WORKER [address] [place] [address] 3 MTH F/U COPD Pulmonary Medicine Comment on above: 3 MTH F/U COPD Start: 07-26-2024 End: 07-26-2024 ambulatory 07/26/2024 11:00 AM EST Procedure PULM LAB [facility] [address] [place] [id number] Wstr, Pulm Lab [facility] [address] [place] [id number] PFT PULM LAB [facility] WS Comment on above: PFT Start: 07-14-2024 Annual PCP Team Chronic Disease Visit Annual PCP Team Chronic Disease Visit [facility] Start: 07-14-2024 BP Controlled (<130/80) BP Controlled (<130/80) [facility] Start: 05-06-2024 Annual PCP Team Chronic Disease Visit Annual PCP Team Chronic Disease Visit [facility] Start: 05-06-2024 BP Controlled (<130/80) BP Controlled (<130/80) [facility] Start: 05-06-2024 Diabetes mellitus screening [facility] Start: 05-05-2024 End: 05-05-2024 Patient encounter procedure 05/05/2024 3:20 PM EDT Office Visit Internal Medicine [place] [address] [facility] [place] [id number] Maryam Franco MD [address] [facility] [place] [id number] medication review/medicare [facility] [place] Comment on above: medication review/medicare Start: 04-25-2024 End: 04-25-2024 Patient encounter procedure 04/25/2024 3:15 PM EDT Office Visit Pulmonary Medicine [address] [place] [address] Pepper Flannery MD [address] [place] [id number] COPD Pulmonary Medicine Comment on above: COPD Start: 04-25-2024 End: 04-25-2024 ambulatory PULM LAB [facility] Comment on above: COPD Start: 04-25-2024 End: 04-25-2024 Patient encounter procedure [facility] [place] Comment on above: 1 mo follow up Annual Wellness - 1 mo follow up Start: 04-13-2024 End: 04-13-2024 Patient encounter procedure 04/13/2024 2:00 PM EDT Office Visit [facility] [address] [facility] [place] [place] [address] Jayson Trujillo MD [address] [facility] [address] [place] [address] Chronic pain of right lower extremity [M79.604, G89.29] [facility] Comment on above: Chronic pain of right lower extremity [M 79.604, G89.29] Start: 04-07-2024 End: 04-07-2024 Patient encounter procedure 04/07/2024 11:00 AM EDT Office Visit Pulmonary Medicine [address] [place] [address] Pepper Flannery MD [address] [facility] [place] [place] [address] COPD Pulmonary Medicine Comment on above: COPD Start: 04-07-2024 End: 04-07-2024 ambulatory PULM LAB [facility] Comment on above: COPD Start: 03-25-2024 Annual PCP Team Chronic Disease Visit Annual PCP Team Chronic Disease Visit [facility] Start: 03-23-2024 End: 03-23-2024 Patient encounter procedure 03/23/2024 3:00 PM EDT Office Visit Internal Medicine [place] [address] [place] [address] Maryam Franco MD [address] [facility] [place] [address] Chronic pain of right lower extremity [M79.604, G89.29] [facility] [place] Comment on above: Chronic pain of right lower extremity [M 79.604, G89.29] Start: 03-20-2024 End: 03-20-2024 Patient encounter procedure 03/20/2024 8:00 AM EDT Office Visit Neurology [address] [place] [address] Pushpa Esquivel Jr., MD [address] [phone] Insomnia, unspecified type [G47.00]; Confusion [R41.0]; RLS (restless legs syndrome) [G25.81] Neurology Comment on above: Insomnia, unspecified type [G47.00]; Con fusion [R41.0]; RLS (restless legs syndrome) [G25.81] Start: 03-07-2024 End: 03-07-2024 Patient encounter procedure 03/07/2024 1:40 PM EDT Office Visit Internal Medicine [place] [address] [place] [address] Maryam Franco MD [address] [place] [address] 2 month follow up Internal Medicine [place] Comment on above: 2 month follow up Start: 03-05-2024 Covid-19 Vaccine ( season) Covid-19 Vaccine ( season) [facility] Start: 03-05-2024 Covid-19 Vaccine ( season) Covid-19 Vaccine ( season) [facility] Start: 03-05-[address] [facility] Start: 03-05-2024 [facility] Start: 02-22-2024 End: 05-23-2024 Lipid 1996 panel - Serum or Plasma LIPID PANEL BASIC Lab Routine Mixed hyperlipidemia Expected: 02/22/2024, Expires: 05/23/2024 [facility] Work Phone: Comment on above: Expected: 02/22/2024, Expires: Start: 02-21-2024 End: 02-21-2024 ambulatory [facility] Start: 02-21-2024 End: 02-21-2024 Patient encounter procedure 02/21/2024 10:00 AM EDT Appointment Radiology [address] [facility] [place] [address] Right leg pain [M79.604] Radiology Comment on above: Right leg pain [M79.604] Start: 02-06-2024 ANNUAL PCP TEAM CHRONIC DISEASE VISIT ANNUAL PCP TEAM CHRONIC DISEASE VISIT [facility] Start: 02-06-2024 BP CONTROLLED (<130/80) BP CONTROLLED (<130/80) [facility] Start: 01-03-2024 End: 01-03-2024 Patient encounter procedure 01/03/2024 2:00 PM EDT Office Visit Internal Medicine [place] [address] [place], [place] [id number] Lise Major, PUBLIC WORKS MANAGER.CLEAN UP WORKER [address] [place] [address] Med Recheck/Refill Internal Medicine [place] Comment on above: Med Recheck/Refill Start: 12-24-2023 End: 12-24-2023 Patient encounter procedure 12/24/2023 1:30 PM EDT Office Visit General Surgery [address] [place] [address] Dex Hdz MD [address] [id number] 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) [Z93.1] General Surgery Comment on above: 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) [Z93.1] Start: 12-21-2023 End: 12-21-2023 Patient encounter procedure 12/21/2023 9:20 AM EDT Office Visit Family Medicine [place] [address] [place] [address] Bela Carbajal PA-C [address] [place], [place] [id number] Med Recheck/Refill Family Medicine [place] Comment on above: Med Recheck/Refill Start: 12-06-2023 End: 12-06-2023 Patient encounter procedure 12/06/2023 2:40 PM EDT Office Visit Internal Medicine [place] [address] [place] [id number] Issa Herman MD [address] [place] [id number] [facility] D/C 11/24 Internal Medicine [place] Comment on above: [facility] D/C 11/24 Start: 11-17-2023 DIABETES SCREEN DIABETES SCREEN [facility] Start: 11-14-2023 ANNUAL PCP TEAM CHRONIC DISEASE VISIT ANNUAL PCP TEAM CHRONIC DISEASE VISIT [facility] Start: 11-04-2023 ANNUAL PCP TEAM CHRONIC DISEASE VISIT ANNUAL PCP TEAM CHRONIC DISEASE VISIT [facility] Start: 11-04-2023 BP CONTROLLED (<130/80) BP CONTROLLED (<130/80) [facility] Start: 11-01-2023 End: 11-01-2023 [facility] Start: 2023 ANNUAL PCP TEAM CHRONIC DISEASE VISIT ANNUAL PCP TEAM CHRONIC DISEASE VISIT [facility] Start: 10-02-2023 ANNUAL PCP TEAM CHRONIC DISEASE VISIT ANNUAL PCP TEAM CHRONIC DISEASE VISIT [facility] Start: 10-02-2023 COVID-19 VACCINE (4 - Booster for Pfizer series) COVID-19 VACCINE (4 - Booster for Pfizer series) [facility] Comment on above: Postponed from 08/13/2021 (Declined at t his time) Start: 10-02-2023 COVID-19 VACCINE (4 - Pfizer series) COVID-19 VACCINE (4 - Pfizer series) [facility] Comment on above: Postponed from 08/13/2021 (Declined at t his time) Start: 08-19-2023 ANNUAL PCP TEAM CHRONIC DISEASE VISIT ANNUAL PCP TEAM CHRONIC DISEASE VISIT [facility] Start: 08-19-2023 BP CONTROLLED (<130/80) BP CONTROLLED (<130/80) [facility] Start: 07-05-2023 Advance Directive Discussion Advance Directive Discussion [facility] Start: 07-05-2023 Behavioral Health Screening Behavioral Health Screening [facility] Start: 07-05-2023 Depression Assessment Depression Assessment [facility] Start: 07-05-2023 [facility] Start: 05-22-2023 ANNUAL PCP TEAM CHRONIC DISEASE VISIT ANNUAL PCP TEAM CHRONIC DISEASE VISIT [facility] Start: 05-22-2023 BP CONTROLLED (<130/80) BP CONTROLLED (<130/80) [facility] Start: 03-26-2023 ANNUAL PCP TEAM CHRONIC DISEASE VISIT ANNUAL PCP TEAM CHRONIC DISEASE VISIT [facility] Start: 03-25-2023 End: 05-25-2023 CBC panel - Blood by Automated count CBC Lab Routine Anemia, unspecified type Expected: 03/25/2023, Expires: 05/25/2023 [facility] Work Phone: Comment on above: Expected: 03/25/2023, Expires: 3 Start: 03-25-2023 End: 05-25-2023 Comprehensive metabolic 2000 panel - Serum or Plasma COMP METABOLIC PANEL Lab Routine Anemia, unspecified type Elevated liver enzymes Mixed hyperlipidemia Expected: 03/25/2023, Expires: 05/25/2023 [facility] Work Phone: Comment on above: Expected: 03/25/2023, Expires: 3 Start: 03-25-2023 End: 05-25-2023 Lipid 1996 panel - Serum or Plasma LIPID PANEL BASIC Lab Routine Mixed hyperlipidemia Expected: 03/25/2023, Expires: 05/25/2023 [facility] Work Phone: Comment on above: Expected: 03/25/2023, Expires: 3 Start: 03-09-2023 End: 05-09-2023 Lipid 1996 panel - Serum or Plasma LIPID PANEL BASIC Lab Routine Essential hypertension Expected: 03/09/2023, Expires: 05/09/2023 [facility] Work Phone: Comment on above: Expected: 03/09/2023, Expires: 3 Start: 03-05-2023 Covid-19 Vaccine () Covid-[address] () [facility] Start: 03-05-[address] [facility] Start: 03-05-2023 [facility] Start: 03-03-2023 ANNUAL PCP TEAM CHRONIC DISEASE VISIT ANNUAL PCP TEAM CHRONIC DISEASE VISIT [facility] Start: 02-17-2023 ANNUAL PCP TEAM CHRONIC DISEASE VISIT ANNUAL PCP TEAM CHRONIC DISEASE VISIT [facility] Start: 01-01-2023 Influenza vaccination INFLUENZA (#1) [facility] Comment on above: Postponed from 03/05/2022 (Declined at t his time) Start: 12-23-2022 Adult depression screening assessment DEPRESSION SCREENING [facility] Start: 12-23-2022 ANNUAL PCP TEAM CHRONIC DISEASE VISIT ANNUAL PCP TEAM CHRONIC DISEASE VISIT [facility] Start: 11-18-2022 End: 01-18-2023 CBC W Auto Differential panel - Blood CBC + DIFF Lab Routine Medication monitoring encounter Anemia, unspecified type Expected: 11/18/2022 (Approximate), Expires: 01/18/2023 [facility] Work Phone: Comment on above: Expected: 11/18/2022 (Approximate), Expi res: 01/18/2023 Start: 11-18-2022 End: 01-18-2023 Comprehensive metabolic 2000 panel - Serum or Plasma COMP METABOLIC PANEL Lab Routine Elevated liver enzymes Medication monitoring encounter Anemia, unspecified type Expected: 11/18/2022 (Approximate), Expires: 01/18/2023 [facility] Work Phone: Comment on above: Expected: 11/18/2022 (Approximate), Expi res: 01/18/2023 Start: 11-03-2022 ANNUAL PCP TEAM CHRONIC DISEASE VISIT ANNUAL PCP TEAM CHRONIC DISEASE VISIT [facility] Start: 10-16-2022 End: 12-16-2022 Basic metabolic 2000 panel - Serum or Plasma BASIC METABOLIC PNL Lab Routine Decompensated heart failure (HCC) RLS (restless legs syndrome) Expected: 10/16/2022, Expires: 12/16/2022 [facility] Work Phone: Comment on above: Expected: 10/16/2022, Expires: Start: 10-16-2022 End: 12-16-2022 CBC W Auto Differential panel - Blood CBC + DIFF Lab Routine Decompensated heart failure (HCC) Expected: 10/16/2022, Expires: 12/16/2022 [facility] Work Phone: Comment on above: Expected: 10/16/2022, Expires: 3 Start: 10-16-2022 End: 12-16-2022 Ferritin [Mass/volume] in Serum or Plasma FERRITIN BLD Lab Routine RLS (restless legs syndrome) Expected: 10/16/2022, Expires: 12/16/2022 [facility] Work Phone: Comment on above: Expected: 10/16/2022, Expires: 3 Start: 10-16-2022 End: 12-16-2022 Iron and Iron binding capacity panel - Serum or Plasma IRON + TIBC Lab Routine RLS (restless legs syndrome) Expected: 10/16/2022, Expires: 12/16/2022 [facility] Work Phone: Comment on above: Expected: 10/16/2022, Expires: 3 Start: 10-16-2022 End: 12-16-2022 Magnesium [Mass/volume] in Serum or Plasma MAGNESIUM BLD Lab Routine RLS (restless legs syndrome) Expected: 10/16/2022, Expires: 12/16/2022 [facility] Work Phone: Comment on above: Expected: 10/16/2022, Expires: 3 Start: 10-08-2022 ANNUAL PCP TEAM CHRONIC DISEASE VISIT ANNUAL PCP TEAM CHRONIC DISEASE VISIT [facility] Start: 07-29-[address] [facility] Start: 07-29-2022 Screening for malignant neoplasm of breast Mammogram Screening [facility] Start: 07-05-2022 ADVANCE DIRECTIVE DISCUSSION ADVANCE DIRECTIVE DISCUSSION [facility] Start: 07-05-2022 DEPRESSION ASSESSMENT DEPRESSION ASSESSMENT [facility] Start: 07-01-2022 ANNUAL PCP TEAM CHRONIC DISEASE VISIT ANNUAL PCP TEAM CHRONIC DISEASE VISIT [facility] Start: 06-30-2022 End: 08-30-2022 Lipid 1996 panel - Serum or Plasma LIPID PANEL BASIC Lab Routine Essential hypertension Expected: 06/30/2022, Expires: 08/30/2022 [facility] Work Phone: Comment on above: Expected: 06/30/2022, Expires: 3 Start: 06-30-2022 End: 08-30-2022 SCHEDULE LAB TESTING SCHEDULE LAB TESTING Lab Routine Expected: 06/30/2022, Expires: 08/30/2022 [facility] Work Phone: Comment on above: Expected: 06/30/2022, Expires: 3 Start: 03-05-2022 Influenza vaccination [facility] Start: 01-27-2022 End: 03-29-2022 Lipid 1996 panel - Serum or Plasma LIPID PANEL BASIC Lab Routine Medication management Expected: 01/27/2022, Expires: 03/29/2022 [facility] Work Phone: Comment on above: Expected: 01/27/2022, Expires: 2 Start: 01-27-2022 End: 03-29-2022 SCHEDULE LAB TESTING SCHEDULE LAB TESTING Lab Routine Expected: 01/27/2022, Expires: 03/29/2022 [facility] Work Phone: Comment on above: Expected: 01/27/2022, Expires: 2 Start: 11-03-2021 End: 01-03-2022 Comprehensive metabolic 2000 panel - Serum or Plasma [facility] Work Phone: Comment on above: Expected: 11/03/2021, Expires: 2 Start: 11-03-2021 End: 01-03-2022 Magnesium [Mass/volume] in Serum or Plasma [facility] Work Phone: Comment on above: Expected: 11/03/2021, Expires: 2 Start: 2021 COVID-19 VACCINE (4 - Booster for Pfizer series) COVID-19 VACCINE (4 - Booster for Pfizer series) [facility] Start: 2021 [facility] Start: 10-08-2021 End: 12-08-2021 CBC W Auto Differential panel - Blood CBC + DIFF Lab Routine GUME (acute kidney injury) (HCC) Expected: 10/08/2021, Expires: 12/08/2021 [facility] Work Phone: Comment on above: Expected: 10/08/2021, Expires: 2 Start: 10-08-2021 End: 12-08-2021 Comprehensive metabolic 2000 panel - Serum or Plasma COMP METABOLIC PANEL Lab Routine GUME (acute kidney injury) (HCC) Expected: 10/08/2021, Expires: 12/08/2021 [facility] Work Phone: Comment on above: Expected: 10/08/2021, Expires: 2 Start: 10-08-2021 End: 12-08-2021 Natriuretic peptide.B prohormone N-Terminal [Mass/volume] in Serum or Plasma NT PRO BNP Lab Routine Congestive heart failure, unspecified HF chronicity, unspecified heart failure type (HCC) Expected: 10/08/2021, Expires: 12/08/2021 [facility] Work Phone: Comment on above: Expected: 10/08/2021, Expires: 2 Start: 10-08-2021 End: 12-08-2021 TROPONIN T TROPONIN T Lab Routine Hypervolemia, unspecified hypervolemia type Expected: 10/08/2021, Expires: 12/08/2021 [facility] Work Phone: Comment on above: Expected: 10/08/2021, Expires: 2 Start: 08-13-2021 COVID-19 VACCINE (4 - Booster for Pfizer series) COVID-19 VACCINE (4 - Booster for Pfizer series) [facility] Start: 07-23-2021 Screening for malignant neoplasm of breast [facility] Start: 07-05-2021 ADVANCE DIRECTIVE DISCUSSION ADVANCE DIRECTIVE DISCUSSION [facility] Start: 07-05-2021 DEPRESSION ASSESSMENT DEPRESSION ASSESSMENT [facility] Start: 10-18-2019 Pneumococcal vaccination [facility] Start: 10-18-2019 PNEUMOVAX AGE 65 AND OVER WITH 5YR LOOKBACK (#1) PNEUMOVAX AGE 65 AND OVER WITH 5YR LOOKBACK (#1) [facility] Start: 01-26-2018 Adult depression screening assessment DEPRESSION SCREENING [facility] Start: 04-25-2016 PNEUMOCOCCAL: 65+ (2 - PPSV23 if available, else PCV20) PNEUMOCOCCAL: 65+ (2 - PPSV23 if available, else PCV20) [facility] Start: 04-25-2016 PNEUMOCOCCAL: 65+ (2 - PPSV23 or PCV20) PNEUMOCOCCAL: 65+ (2 - PPSV23 or PCV20) [facility] Start: 06-20-2015 PNEUMOCOCCAL: 65+ (2 - PPSV23 if available, else PCV20) PNEUMOCOCCAL: 65+ (2 - PPSV23 if available, else PCV20) [facility] Start: 06-20-2015 PNEUMOCOCCAL: 65+ (2 - PPSV23 or PCV20) PNEUMOCOCCAL: 65+ (2 - PPSV23 or PCV20) [facility] Start: 2014 RSV Vaccine (1 - 1-dose 60+ series) RSV Vaccine (1 - 1-dose 60+ series) [facility] Start: 2014 RSV Vaccine (1 - Risk 60-74 years 1-dose series) RSV Vaccine (1 - Risk 60-74 years 1-dose series) [facility] Start: 2014 [facility] Start: 2004 SHINGRIX VACCINE (1 of 2) SHINGRIX VACCINE (1 of 2) [facility] Start: 2004 [facility] Start: 10-18-1999 COLOGUARD (FIT-DNA) COLOGUARD (FIT-DNA) [facility] Start: 10-18-1999 Colonoscopy [facility] Start: 10-18-[address] [facility] Start: 10-18-1999 FECAL OCCULT BLOOD FECAL OCCULT BLOOD [facility] Start: 10-18-1999 Screening for malignant neoplasm of colon [facility] Start: 10-18-[address] [facility] Start: 1994 Screening mammography [facility] Start: 10-18-1975 Screening for malignant neoplasm of cervix [facility] Start: 1973 Third diphtheria, tetanus and acellular pertussis (DTaP) vaccination [facility] Start: [address] [facility] Start: 1973 [facility] Start: 1972 BP CONTROLLED (<130/80) BP CONTROLLED (<130/80) [facility] Start: 1972 Depression Screening Depression Screening [facility] Start: 1972 Hepatitis C screening [facility] Start: [address] [facility] Start: 1972 Tetanus vaccination [facility] Start: 1966 [facility] Start: 1954 Lipid panel [facility] Start: 1954 Screening for malignant neoplasm of colon [facility] Start: 1954 Screening for osteoporosis [facility] End: 09-27-2023 Blood gases, arterial measurement [facility] Work Phone: End: 09-28-2023 Blood gases, arterial measurement [facility] End: 05-03-2023 Ct cervical spine w/o contrast material CT CERVICAL SPINE WO IVCON Radiology Routine Closed nondisplaced fracture of seventh cervical vertebra with routine healing, unspecified fracture morphology, subsequent encounter 1 Occurrences starting 04/03/2022 until 05/03/2023 [facility] Work Phone: Comment on above: 1 Occurrences starting 04/03/2022 until 05/03/2023 End: 05-03-2023 Ct lumbar spine w/o contrast material CT LUMBAR SPINE WO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 toilet with modified independence. (Not Addressed) Start: 02/07/24 Expected End: 03/06/24 Therapy Time Individual Co-treatment Time In 56 Time Out 1045 Minutes 49 Timed Code Treatment Minutes: 49 Minutes (selfcare-2, ther act-1) EILEEN [facility] Respiratory Care Department Progress Note Comment [...] Date: 01/28/2024 PCP: Maryam Franco MD Room#: [id number]/7731 A Brief Hospital course: 68 y/o F with PMH advanced COPD s/p trach from recent admission to [facility], presented 01/27 to [place] with possible seizure. Her family called EMS when the pt had a shaking episode. A+Ox2 per EMS on arrival and pt was brought to the ER. The ER assessed and sent her home. Later in the day around 1400, the pt had another episode of shaking and was brought back again. At [place] ED, she had a negative CTA/H and [...] time - do have snf choices in [place] area Case and plan discussed with patient [...] -600 ml LABS: CBC: Recent Labs 02/08/2445602/09/24 0525 02/10/24 0046 WBC 9.3 9.8 11.3* RBC 3.29* [...] - 02/10 - Location - snf in [place] - Pending the following - facility acceptance - pt medically ready for dc Total time spent (which include face to face and non face to face encounters) : 41 minutes Extended Emergency Contact Information Primary Emergency Contact: YADIRA GeigerGWENDOLYNZenaida BROWNAMEENA Estevez Mobile Relation: Daughter Secondary Emergency Contact: [employer] Mobile Relation: Son Preferred language: Singaporean Hydrographic Surveyor needed? No Pepe Delarosa MD Division of Hospitalist Medicine Inpatient Medical Services/[facility] Pulmonary and Sleep Medicine Patient - Luiza May, Age - 68 y.o. - 1955 Room Number - @[email or web address]@ Consulting - Pepe Delarosa MD Primary Care Physician - Maryam Franco MD Date of Admission - 01/28/2024 6:42 PM [...] shaking and was brought back again. At [place] ER, she has had a negative CTA [...] -- Output 600 ml Net -600 ml @[id number]@ Exam General Appearance Awake, alert, oriented, in [...] reports for details) Active Hospital Problem List @[id number]@ Assessment and Plan Acute on chronic hypoxic [...] loss Fluid Accumulation: No significant fluid accumulation Field Recorder Strength: Not Performed Nutrition Assessment: 68yo F with PMHx COPD, CAD, HFrEF, HTN, ETOH Abuse, Seizure Disorder/Bihemispheric MCA strokes/Traumatic SDH (08/2023), Acute on Chronic Hypoxic Respiratory Failure s/p trach & PEG (10/04/23 Multifactorial / MSSA PNA, COPD/asthma, VCD/stenosis) who remains admitted since 01/27 d/t increased delerium, acute encephalopathy and possible seizure (A&O x 4 at baseline). At baseline trach is capped and patient is supposed to wear bipap at bedtime, however pt non-compliant with BIPAP and course has been c/b acute on chronic hypoxic and hypercapnic respiratory failure / polymicrobial LRTI and AECOPD. She required pressors and trach to vent 01/28 for hypotension and hypoxia, as well as precedex for agitation. Transitioned to trach mask 01/31 with PAP at night. [employer] evaluated 02/01 with recs for Regular/thin and no acute [employer] therapy. Completed course of Vanc/Cefepime and 5 day course of steroids 02/03. Palliative Care and Geriatrics evaluated--family with concerns for dementia and memory problems with decline in the past few months. Pt to remain full code, Palliative Care signed off 02/06. S/p trach exchange 02/06 d/t leaking cuff. Transferred to [facility] 02/07, continues on PO prednisone taper and aerosols. Pt still with PAP non-compliance. Pulmonology following. In terms of nutrition, pt was NPO 01/27-01/31 d/t increased O2 requirements (trach to vent) however has remained on a Regular diet since 02/01 per stock worker recommendations. PO intake appears adequate per flowsheet [...] (kg): 59.8 kg Total Energy Requirements (kcals/day): 1256-6449 Weight Used for Protein Requirements: Admission (1.0-1.2 g/kg) Weight in Kg Used for Protein Requirements: 59.8 kg Estimated Total Protein (g/day): 60-72 Estimated Daily Total Fluid (ml/day): per MD Nutrition Related Findings: Nacho = 20, GI = bm 02/05, I/O-, Labs reviewed, Meds: Prednisone Wound Type: [...] 02/05/23, 133# on 05/24/23, 130# on 12/24/23) [place] Body Weight (lbs) (Calculated): 115 lbs [place] Body Weight (Kg) (Calculated): 52 kg % [place] Body Weight (Calculated): 112.1 % BMI (kg/m2) [...] Continue current diet Joanie Lopez RD Contact: *[phone] Images from the original note were not included. PHYSICAL THERAPY [facility] Treatment Note Name/MRN: Luiza May ([id number]) Date of : 1955 Age: 68 y.o. [...] trach mask 15L/50%. Quality of gait: slow jenny; cues to increase step height due to [...] COPD s/p trach from recent admission to [facility], presented 01/27 to [facility] with possible seizure. Her family called EMS when the pt had a shaking episode. A+Ox2 per EMS on arrival and pt was brought to the ER. The ER assessed and sent her home. Later in the day around 1400, the pt had another episode of shaking and was brought back again. At [facility] ED, she had a negative CTA/H and [...] 1223 LABS: CBC: Recent Labs 02/07/24 0549 02/08/247 02/09/24 0525 WBC 9.7 9.3 9.8 RBC [...] Emergency Contact Information Primary Emergency Contact: YADIRA JuanjoGWENDOLYNZenaida (AMEENA GLEASON Mobile Relation: Daughter Secondary Emergency Contact: Gene Mills Mobile Relation: Son Preferred language: Singaporean Hydrographic Surveyor needed? No Pepe Delarosa MD Division of Hospitalist Medicine Inpatient Medical Services/[facility] Pulmonary and Sleep Medicine Patient - Luiza May, Age - 68 y.o. - 1955 Room Number - @[email or web address]@ Consulting - Pepe Delarosa MD Primary Care Physician - Maryam Franco MD Date of Admission - 01/28/2024 6:42 PM [...] shaking and was brought back again. At [facility] ER, she has had a negative CTA [...] in the 24 hours ending 02/09/24 1008 @[email or web address]@ Exam General Appearance Awake, alert, oriented, in [...] reports for details) Active Hospital Problem List @[email or web address]@ Assessment and Plan Acute on chronic hypoxic [...] nurse and patient/family. Questions and concerns addressed. [facility] Geriatric Medicine Inpatient Consult Service Admission Date: [...] symptoms --Recommend outpatient follow up at [facility] [place] ([facility]) for more in depth [...] Patient presents with Seizures Pt sent from [facility] for evaluation of seizures. Per transport, pt [...] PEG on 10/04/2023 subsequently admitted 10/11 to [facility]. Per initial geriatric consult note, patient reports [...] Yanet Aguilar MD, 2 mg at 02/08/24 05 DULoxetine (Cymbalta) DR capsule 30 mg, 30 [...] 1.148 01/29/2024 Lab Results Component Value Date [id number] 416 01/29/2024 Lab Results Component Value Date VITD25 32 01/29/2024 Reviewed: allergies, imaging, active problem lists, medications, and labs [facility] Respiratory Care Department Progress Note Trach [...] Respiratory in the care of this patient, [facility] Respiratory Care Department Progress Note Trach Mask Trial End END TIME: 0 Total time on trial: 16 hrs HR: 91 RR: 22 Fio2: 28 SpO2: 100 CUFF REINFLATED: Yes Reason for return to ventilator: Patient to wear NIV at [facility], trial with her home vent (ex. Physician ordered, Vitals, SOB, patient request) COMMENTS: Patient willing to wear home machine, unclear if wears at home. Thank you for involving Respiratory in the care of this patient, Images from the original note were not included. PHYSICAL THERAPY [facility] Name/MRN: Luiza May ([id number]) Date: 02/08/2024 Chart review completed this date. [...] COPD s/p trach from recent admission to [facility], presented 01/27 to [facility] with possible seizure. Her family called EMS when the pt had a shaking episode. A+Ox2 per EMS on arrival and pt was brought to the ER. The ER assessed and sent her home. Later in the day around 1400, the pt had another episode of shaking and was brought back again. At [facility] ED, she had a negative CTA/H and [...] BP MAP (!) 118/49 (02/08/24 0400) 69 (02/08/24399) Arterial BP MAP Temp (!) 35.9 C (96.7 F) (02/08/24 0006) Pulse 88 (02/08/24399) Resp (!) 30 (02/08/24399) SpO2 98 % (02/08/24399) Weight 58.5 kg [...] Normal [] Scar/Lesion/Mass Inspection of teeth/lips/gums Dentition: []R[place]annock Teeth []Dentures Lips/Gums: [x]Intact []Lesion Present Mucosa: [x][place] [x]Moist []Dry Neck: External Appearance Overall Appearance: [...] Labs 02/06/24 0558 02/07/24 0549 02/08/24 045 NA 138 138 138 K 3.1* 3.3* 3.3* CL 98 100 103 CO2 39* 36* 31* BUN 21* 17 20* CREATININE 0.58 0.55 0.64 CALCIUM 9.0 8.6 8.7 LFTs:No results for input(s): AST , ALT , PROT , ALBUMIN , BILITOT , BILIRUBINU , ALKPHOS , LIPASE in the last 72 hours. Glucose: Recent Labs 02/06/2458 02/07/24 0549 02/08/24456 GLUCOSE 90 83 92 Procal: No results for input(s): PROCAL in the last 72 hours. CBC: Recent Labs 02/06/2458 02/07/24 0549 02/08/24456 WBC 11.0* 9.7 9.3 HGB 11.3 10.1* 10.4 9.3* 8.7* HCT 32.5* 30.4* 28.3* PLT 225 222 227 MCV 85.1 86.1 86.0 RDW 14.9 15.2* 15.4* ABGs: Recent Labs 02/07/24 0549 [id number] 30% Oxygen Lactic Acid: No results for [...] and Plan: Principal Problem: Status epilepticus (CMS/HCC) ([facility]) Assessment and Plan: Acute on chronic hypoxic [...] IPR/continue to assess - Referral placed to [facility] Rehab Normocytic anemia - Remains stable, Hgb 8.7 Hypokalemia - Potassium chloride ER tablet 15 mEq daily - Replace as needed Previous EtOH abuse GI Prophylaxis: Pepcid PO/Enteral Tube DVT Prophylaxis: Lovenox 40 q 24hr - creatinine clearance >30 Disposition: Transfer to [facility] Critical Care Time: Total critical care time caring for this patient with life threatening, unstable organ failure, including direct patient contact, management of life support systems, review of data including imaging and labs, discussions with other team members and physicians, excluding procedures. Associated attestation - Alayna Gaxiola MD - 02/08/2024 7:00 PM EDT I have personally performed a wytb-ee-ppyw diagnostic evaluation on this patient on date of service 02/08/24. History, labs, imaging studies, and electronic medical record have been reviewed by me. This note documented by the [x]boathouse keeper []BACILIO reflects my history, exam, and medical [...] May has been seen in consultation by [facility] Palliative Care during their admission to [facility]. They currently have no uncontrolled symptoms and have established goals of care and we have signed off of their case. The patient has established follow-up with desk attendant and PCP. Total of 35 minutes [...] anxiety, ETOH abuse, seizures who presented to [facility] ED 01/28/2024 from home with concerns of hypoxia and had 2-3 seizures >5 minutes which prompted transfer to [facility]. Patient with trach (possible planning to decannulate [...] unknown Spiritual assessment: No spiritual distress identified, obstetrics specialist following Bereavement and grief: Grief Issues Not Identified [place] Symptom Assessment Score [place] Score Pain Score 0 Tiredness Score 0 [...] the note above. GALO Castrejon *Time-based code 08445 for 16-45 minutes. Add-on code 44398 at 46 minutes and each additional 30 [...] align with goals Family Communication Number Called: [phone] Name of Designated Family Air Pollution Control Engineer: Ameena Castano Relationship: daughter Phone Call Outcome: I spoke with the individual listed above. Family Air Pollution Control Engineer Updated on the Following: Discussed that the patients tracheostomy was replaced at bedside today and that she tolerated this well. She was informed that the patient is doing well and no longer requires ICU level care and will be transferred to the general medical floor. Images from the original note were not included. PHYSICAL THERAPY [facility] Treatment Note Name/MRN: Luiza May ([id number]) Date of : 1955 Age: 68 y.o. [...] shuffling, uneven step length, narrow JAMIE, slow jenny, postural sway, path deviations Good FWW management [...] shuffling, uneven step length, narrow JAMIE, slow jenny, postural sway, forward flexed posture and use [...] Mobility Raw Score (No Stairs) : 15 JH-M -HL Score: Walked 250 ft or more (i.e. [...] Individual Co-treatment Time In 904 Time Out 48 Minutes 43 Timed Code Treatment Minutes: 43 Minutes (FA, GT x 2) Tiffany Brewster PTA Images from the original note were not included. OCCUPATIONAL THERAPY [facility] Initial Evaluation Name/MRN: Luiza May ([id number]) Evaluation Date: 02/07/2024 Date of : 1955 [...] Recommending Home with Home OT, Home with 24/7 Assist, Inpatient Rehab, and Continue to assess [...] infarction (HCC) COPD (chronic obstructive pulmonary disease) ([facility]) Hypertension Past Surgical History: Past Surgical History: Procedure Laterality Date APPENDECTOMY CHOLECYSTECTOMY COLONOSCOPY COLONOSCOPY CT CHEST ANGIOGRAM W AND/OR WO IV CONTRAST 07/26/2022 CT CHEST ANGIOGRAM W AND/OR WO IV CONTRAST 07/26/[address] [facility] [address] IMAGING Admission Diagnosis: Patient Active Problem List Diagnosis Date Noted Status epilepticus ([facility]) ([facility]) 01/28/2024 Seizure ([facility]) 09/26/2023 Severe malnutrition (CMS/HCC) ([facility]) 07/26/2022 COPD exacerbation ([facility]) 07/25/2022 Acute respiratory failure with hypoxia and hypercapnia ([facility]) 09/26/2023 Hemorrhage of gastrointestinal tract 04/17/2017 Cerebrovascular accident (CVA) due to embolism of cerebral artery ([facility]) 02/12/2017 Acute deep vein thrombosis (DVT) of distal vein of right lower extremity ([facility]) 02/12/2017 Encephalopathy 02/12/2017 Posterior reversible encephalopathy syndrome (PRES) 02/12/2017 Alcohol abuse 02/10/2017 NSTEMI (non-ST elevated myocardial infarction) ([facility]) 02/10/2017 History of hematemesis 02/10/2017 Medical Precautions: [...] Independent Receives Help From: Significant other Active Varying Exceptionalities Teacher: No Prior Level of Function ADL Assistance: [...] will utilize adaptive techniques to bathe body PR. Start: 02/07/24 Expected End: 03/06/24 Dressing Upper Extremities Patient will complete upper body dressing PR. Start: 02/07/24 Expected End: 03/06/24 Dressings Lower Extremities Patient will dress lower body PR. Start: 02/07/24 Expected End: 03/06/24 OT Misc [...] of Care supervision is transferred to a [facility] Therapy Services Occupational Therapist. Goals and/or treatment plan was established in collaboration with patient/family/other representatives. ICU Progress Note Name: Luiza May : 1955(68 y.o.) Date: 02/07/24 Team: MICU Attending: Dr. Alayna Gaxiola Subjective: Hospital Summary: 68 y/o F with PMH advanced COPD s/p trach from recent admission to [facility], presented 01/27 to [facility] with possible seizure. Her family called EMS when the pt had a shaking episode. A+Ox2 per EMS on arrival and pt was brought to the ER. The ER assessed and sent her home. Later in the day around 1400, the pt had another episode of shaking and was brought back again. At [facility] ED, she had a negative CTA/H and [...] Objective: Last Vitals: BP MAP 117/53 (02/07/24 07) 71 (02/07/24699) Arterial BP MAP Temp 36.6 [...] Normal [] Scar/Lesion/Mass Inspection of teeth/lips/gums Dentition: [][place] Teeth []Dentures Lips/Gums: [x]Intact []Lesion Present Mucosa: [x][place] [x]Moist []Dry Neck: External Appearance Overall Appearance: [...] ABGs: Recent Labs 02/04/24 0953 02/07/24 0549 [id number] No data 30% Oxygen Lactic Acid: No [...] and Plan: Principal Problem: Status epilepticus (CMS/HCC) ([facility]) Assessment and Plan: Acute on chronic hypoxic [...] taper - Trach successfully replaced at bedside, [facility] 7.5 cuffed Agitation, acute encephalopathy- resolved Prior [...] - creatinine clearance >30 Disposition: Transfer to [facility] Critical Care Time: Total critical care time caring for this patient with life threatening, unstable organ failure, including direct patient contact, management of life support systems, review of data including imaging and labs, discussions with other team members and physicians, excluding procedures. Associated attestation - Alayna Gaxiola MD - 02/07/2024 5:26 PM EDT I have personally performed a ohtw-sb-unaw diagnostic evaluation on this patient on date of service 02/07/24. History, labs, imaging studies, and electronic medical record have been reviewed by me. This note documented by the [x]boathouse keeper []BACILIO reflects my history, exam, and medical [...] original note were not included. OCCUPATIONAL THERAPY [facility] Name/MRN: Luiza May ([id number]) Date: 02/06/2024 OT eval and treat order [...] COPD s/p trach from recent admission to [facility], presented 01/27 to [facility] with possible seizure. Her family called EMS when the pt had a shaking episode. A+Ox2 per EMS on arrival and pt was brought to the ER. The ER assessed and sent her home. Later in the day around 1400, the pt had another episode of shaking and was brought back again. At [facility] ED, she had a negative CTA/H and [...] Normal [] Scar/Lesion/Mass Inspection of teeth/lips/gums Dentition: []R[place]ock Teeth []Dentures Lips/Gums: []Intact []Lesion Present Mucosa: [x][place] [x]Moist []Dry Neck: External Appearance Overall Appearance: [...] the last 72 hours. Glucose: Recent Labs 02/04/243 02/05/24 0323 02/06/24 0558 GLUCOSE 99 95 90 Procal: No results for input(s): PROCAL in the last 72 hours. CBC: Recent Labs 02/04/2422202/04/24 0953 02/05/24 0323 02/05/24 0708 02/06/24 0558 WBC 11.3* -- 11.3* -- 11.0* HGB 9.4* < > 10.5* 12.0 11.3 10.1* HCT 30.2* -- 33.9* -- 32.5* PLT 182 -- 213 -- 225 MCV 85.1 -- 86.3 -- 85.1 RDW 14.4 -- 14.6 -- 14.9 < > = values in this interval not displayed. ABGs: Recent Labs 02/04/24 0953 [id number] No data Lactic Acid: No results for [...] and Plan: Principal Problem: Status epilepticus (CMS/HCC) ([facility]) Assessment: -acute on chronic hypoxic and hypercapnic [...] day, if remains stable can transfer to [facility] GI Prophylaxis: Pepcid PO/Enteral Tube DVT Prophylaxis: [...] physicians, excluding procedures. Family Communication Number Called: [phone] Name of Designated Family Air Pollution Control Engineer: Ameena Relationship: daughter Phone Call Outcome: I spoke with the individual listed above. Family Air Pollution Control Engineer Updated on the Following: Spoke with daughter Ameena to obtain background history about patient's medical history/trach/concern for cognitive issues. Ameena states this is the patient's 2nd trach. She states she has had a Bipap machine for several years now, that it was unclear to her after DC from [facility] and then SNF if she was still [...] COPD s/p trach from recent admission to [facility], presented 01/27 to [facility] with possible seizure. Her family called EMS when the pt had a shaking episode. A+Ox2 per EMS on arrival and pt was brought to the ER. The ER assessed and sent her home. Later in the day around 1400, the pt had another episode of shaking and was brought back again. At [facility] ED, she had a negative CTA/H and [...] BP MAP Temp 36.1 C (96.9 F) (02/05/24 09) Pulse (!) 137 (02/05/24 1100) Resp (!) [...] Normal [] Scar/Lesion/Mass Inspection of teeth/lips/gums Dentition: []Rapp[place]ock Teeth []Dentures Lips/Gums: []Intact []Lesion Present Mucosa: [x][place] [x]Moist []Dry Neck: External Appearance Overall Appearance: [...] last 24 hours- BMP: Recent Labs 02/03/2445702/04/2422202/05/24 032 NA 140 139 138 K 3.1* 3.0* [...] 72 hours. CBC: Recent Labs 02/03/2445702/04/2422202/04/24 0953 02/05/243 02/05/24 0708 WBC 9.4 11.3* -- 11.3* -- HGB 9.8 9.1* 9.4* 11.1 10.5* 12.0 HCT 29.7* 30.2* -- 33.9* -- PLT 152 182 -- 213 -- MCV 87.1 85.1 -- 86.3 -- RDW 14.6 14.4 -- 14.6 -- ABGs: Recent Labs 02/03/2445702/04/24 0953 [id number] Bi-PAP No data Lactic Acid: No results [...] and Plan: Principal Problem: Status epilepticus (CMS/HCC) ([facility]) Assessment: -acute on chronic hypoxic and hypercapnic [...] COPD s/p trach from recent admission to [facility], presented earlier today to [facility] with possible seizure. Her family called EMS when the pt had a shaking episode. A+Ox2 per EMS on arrival and pt was brought to the ER. The ER assessed and sent her home. Later in the day around 1400, the pt had another episode of shaking and was brought back again. At [facility] ED, she had a negative CTA/H and [...] (kg): 59.8 kg Total Energy Requirements (kcals/day): 4280-8708 Weight Used for Protein Requirements: Admission (1.0-1.2 [...] Weight: 59.8 kg (131 lb 13.4 oz) ([facility] 01/27) Usual Body Weight: (119# on 02/05/23, 133# on 05/24/23, 130# on 12/24/23) [place] Body Weight (lbs) (Calculated): 115 lbs [place] Body Weight (Kg) (Calculated): 52 kg % [place] Body Weight (Calculated): 122.5 % BMI (kg/m2) [...] to determine Ginny Reid RD, LD Contact: *[phone] or via Meshfire chat Vancomycin therapy has been discontinued by Dr. Mildred Villafuerte on 02/04/24. Thank you for the consult. Pharmacy signing off for vancomycin dosing. Irena [place] [facility], Date: 02/04/24 Time: 9:18 AM Pharmacy to Dose Vancomycin - Progress Note Lab Results Component Value Date CREATININE 0.54 02/04/2024 BUN 23 (H) 02/04/2024 WBC 11.3 (H) 02/04/2024 VANCOTROUGH 20.7 (H) 02/02/2024 Doses, serum creatinine, and vancomycin levels interfaced automatically to eRep[employer] and data has been analyzed and interpreted. [...] DATE: 02/04/24 TIME: 8:53 AM [facility] Clinical Pharmacist Available via Secure Chat ICU Progress Note Name: Luiza May : 1955(68 y.o.) Date: 02/04/24 Team: MICU Attending: Dr. Mildred Villafuerte Subjective: Hospital Summary: 68 y/o F with PMH advanced COPD s/p trach from recent admission to [facility], presented 01/27 to [facility] with possible seizure. Her family called EMS when the pt had a shaking episode. A+Ox2 per EMS on arrival and pt was brought to the ER. The ER assessed and sent her home. Later in the day around 1400, the pt had another episode of shaking and was brought back again. At [facility] ED, she had a negative CTA/H and [...] Infusions: Objective: Last Vitals: BP MAP 132/72 (02/04/24 0600) 83 (02/04/24599) Arterial BP MAP Temp 37 [...] Normal [] Scar/Lesion/Mass Inspection of teeth/lips/gums Dentition: [][place] Teeth []Dentures Lips/Gums: [x]Intact []Lesion Present Mucosa: [x][place] [x]Moist []Dry Neck: External Appearance Overall Appearance: [...] Recent Labs 02/02/24 0000 02/03/24 0458 02/04/24 022 GLUCOSE 78 97 99 Procal: No results for input(s): PROCAL in the last 72 hours. CBC: Recent Labs 02/02/24 0000 02/02/24 0527 02/03/248 02/04/24222 WBC 12.3* -- 9.4 11.3* HGB 8.8* < > 9.8 9.1* 9.4* HCT 28.6* -- 29.7* 30.2* PLT 140 -- 152 182 MCV 88.5 -- 87.1 85.1 RDW 14.7 -- 14.6 14.4 < > = values in this interval not displayed. ABGs: Recent Labs 02/02/24 0502/02/2482102/03/24457 [id number] Bi-PAP Other (Add Comment) Bi-PAP Lactic Acid: [...] and Plan: Principal Problem: Status epilepticus (CMS/HCC) ([facility]) Assessment: Acute on chronic hypoxic and hypercapnic [...] PM EDT I have personally performed a gezl-vq-ktdn diagnostic evaluation on this patient on date of service 02/04/24. History, labs, imaging studies, and electronic medical record have been reviewed by me. This note documented by the [x]boathouse keeper []BACILIO reflects my history, exam, and medical [...] anxiety, morning VBG again not entirely compensated (). Family brought home machine today, appears to [...] COPD s/p trach from recent admission to [facility], presented earlier today to [facility] with possible seizure. Her family called EMS when the pt had a shaking episode. A+Ox2 per EMS on arrival and pt was brought to the ER. The ER assessed and sent her home. Later in the day around 1400, the pt had another episode of shaking and was brought back again. At [facility] ED, she had a negative CTA/H and [...] Normal [] Scar/Lesion/Mass Inspection of teeth/lips/gums Dentition: [][place] Teeth []Dentures Lips/Gums: []Intact []Lesion Present Mucosa: [x][place] [x]Moist []Dry Neck: External Appearance Overall Appearance: [...] the last 72 hours. CBC: Recent Labs 02/01/24 0524 02/02/24 0000 02/02/24 0502/02/24 0802/03/24457 WBC 12.4* 12.3* -- -- 9.4 HGB 9.2 9.3* 8.8* < > 10.2 9.8 9.1* HCT 30.5* 28.6* -- -- 29.7* PLT 119* 140 -- -- 152 MCV 88.7 88.5 -- -- 87.1 RDW 14.9 14.7 -- -- 14.6 < > = values in this interval not displayed. ABGs: Recent Labs 02/02/2452602/02/2482102/03/24457 [id number] Bi-PAP Other (Add Comment) Bi-PAP Lactic Acid: [...] and Plan: Principal Problem: Status epilepticus (CMS/HCC) ([facility]) Assessment: -acute on chronic hypoxic and hypercapnic [...] creatinine, and vancomycin levels interfaced automatically to [employer] and data has been analyzed and interpreted. [...] original note were not included. PHYSICAL THERAPY [facility] Initial Evaluation Name/MRN: Luiza May ([id number]) Evaluation Date: 02/03/2024 Date of : 1955 Admission Date: 01/28/2024 6:42 PM Age: 68 y.o. Room/Bed: T1114/[facility]114 A Discharge Recommendation: Continue to assess pending progress, IP Rehab Assessment IMPRESSION:Pt admitted from [facility] ED for seizures. Pt was also hypoxic [...] infarction (HCC) COPD (chronic obstructive pulmonary disease) ([facility]) Hypertension Past Surgical History: Past Surgical History: Procedure Laterality Date APPENDECTOMY CHOLECYSTECTOMY COLONOSCOPY COLONOSCOPY CT CHEST ANGIOGRAM W AND/OR WO IV CONTRAST 07/26/2022 CT CHEST ANGIOGRAM W AND/OR WO IV CONTRAST 07/26/[address] [facility] [address] IMAGING Admission Diagnosis: Patient Active Problem List Diagnosis Date Noted Status epilepticus ([facility]/HCC) ([facility]) 01/28/2024 Seizure ([facility]) 09/26/2023 Severe malnutrition (CMS/HCC) ([facility]) 07/26/2022 COPD exacerbation ([facility]) 07/25/2022 Acute respiratory failure with hypoxia and hypercapnia ([facility]) 09/26/2023 Hemorrhage of gastrointestinal tract 04/17/2017 Cerebrovascular accident (CVA) due to embolism of cerebral artery ([facility]) 02/12/2017 Acute deep vein thrombosis (DVT) of distal vein of right lower extremity ([facility]) 02/12/2017 Encephalopathy 02/12/2017 Posterior reversible encephalopathy syndrome (PRES) 02/12/2017 Alcohol abuse 02/10/2017 NSTEMI (non-ST elevated myocardial infarction) ([facility]) 02/10/2017 History of hematemesis 02/10/2017 Medical Precautions: [...] Independent Receives Help From: Significant other Active Varying Exceptionalities Teacher: No Prior Level of Function ADL Assistance: [...] Distance (ft): 30 Quality of gait: slow jenny, postural sway, decreased foot clearance. Min A to maneuver nezzie Outcome Measures AM-PAC How much HELP from [...] Raw Score (No Stairs) : 15 [facility] Score: Walked 25 ft or more (i.e. [...] 03/02/24 Therapy Time Individual Co-treatment Time In 0921 Time Out 0939 Minutes 18 Roro Mensah PT Patient's Physical Therapy Plan of Care supervision is transferred to a [facility] Therapy Services Physical Therapist. Goals and/or treatment plan was established in collaboration with patient/family/other representatives. Images from the original note were not included. Speech-Language Pathology SPEECH LANGUAGE PATHOLOGY [facility] Bedside Swallow Evaluation Patient Name: Luiza May [...] effectively used when needed. No skilled acute [employer] indicated at this time. Please reconsult should changes occur. Subjective Patient alert and cooperative. Seen upright in bed. Answers all basic questions with clear, strong vocal quality. Follows all basic commands. No visitors at bedside. Spoke with FINESSE Naidu who cleared pt to be evaluated. Dysphagia History: Retrospective chart review revealed a history of [employer] services as follows: Modified Barium Swallow Study [...] Question: Diet type Answer: Regular 02/02/24 1103 Tube Feeding: no Tracheostomy: yes, PMV [...] infarction (HCC) COPD (chronic obstructive pulmonary disease) ([facility]) Hypertension Past Surgical History: Past Surgical History: Procedure Laterality Date APPENDECTOMY CHOLECYSTECTOMY COLONOSCOPY COLONOSCOPY CT CHEST ANGIOGRAM W AND/OR WO IV CONTRAST 07/26/2022 CT CHEST ANGIOGRAM W AND/OR WO IV CONTRAST 07/26/[address] [facility] [address] IMAGING Admission Diagnosis: Patient Active Problem List Diagnosis Date Noted Status epilepticus (CMS/HCC) ([facility]) 01/28/2024 Seizure ([facility]) 09/26/2023 Severe malnutrition (CMS/HCC) ([facility]) 07/26/2022 COPD exacerbation ([facility]) 07/25/2022 Acute respiratory failure with hypoxia and hypercapnia ([facility]) 09/26/2023 Hemorrhage of gastrointestinal tract 04/17/2017 Cerebrovascular accident (CVA) due to embolism of cerebral artery ([facility]) 02/12/2017 Acute deep vein thrombosis (DVT) of distal vein of right lower extremity ([facility]) 02/12/2017 Encephalopathy 02/12/2017 Posterior reversible encephalopathy syndrome (PRES) 02/12/2017 Alcohol abuse 02/10/2017 NSTEMI (non-ST elevated myocardial infarction) ([facility]) 02/10/2017 History of hematemesis 02/10/2017 History of Present Illness: 68yoF with COPD/seizures and trach from recent admission to [facility], presented earlier today to [facility] with possible seizure. Her family called EMS when the pt had a shaking episode. A+Ox2 per EMS on arrival and pt was brought to the ER. This was around 1000. The ER assessed and sent her home. Later in the day around 1400, the pt had another episode of shaking and was brought back again. At [facility] ER, she has had a negative CTA [...] Goal: To have solid food. Therapy Time [employer] Individual Minutes Time In: 1025 Time Out: 1040 Minutes: 15 Juliane Rosenthal ICU Progress Note Name: Luiza May : 1955(68 y.o.) Date: 02/02/24 Team: MICU Attending: DO Christo Subjective: Hospital Summary: 68yoF with COPD/seizures and trach from recent admission to [facility], presented earlier today to [facility] with possible seizure. Her family called EMS when the pt had a shaking episode. A+Ox2 per EMS on arrival and pt was brought to the ER. This was around 1000. The ER assessed and sent her home. Later in the day around 1400, the pt had another episode of shaking and was brought back again. At [facility] ED, she had a negative CTA/H and [...] from precedex; she does not follow a desk attendant. She wears a bipap each night [...] index is 24.64 kg/m . I/O: 01/31 0700 - 02/01 0659 In: 1143 [I.V.:1143] Out: 1400 [Urine:1400] Ventilator: [...] Normal [] Scar/Lesion/Mass Inspection of teeth/lips/gums Dentition: []Rappah[place]ock Teeth []Dentures Lips/Gums: []Intact []Lesion Present Mucosa: [][place] []Moist []Dry Neck: External Appearance Overall Appearance: [...] Recent Labs 01/30/24 1459 01/31/24 0516 02/01/24 0502/02/24 0000 GLUCOSE -- 111* 104* 78 POCGLU [...] Recent Labs 02/01/24 0524 02/02/24 0502/02/24 0822 [id number] Vent Bi-PAP Other (Add Comment) Lactic Acid: [...] and Plan: Principal Problem: Status epilepticus (CMS/HCC) ([facility]) Assessment: Acute on chronic hypoxic and hypercapnic respiratory failure Developing leukocytosis, likely secondary to steroids COPD Hx of prior stroke: bi hemispheric MCA strokes, atrophy and encephalomalacia Hx of traumatic SDH Hx of ETOH abuse Hx of CREST syndrome (per chart) Hx of anxiety/depression Plan: Failed auto bipap overnight, however vbg improved on trach mask this AM 2. Keppra Nh'ed 3. Remain off precedex and other sedative [...] PM EDT I have personally performed a nyxz-fa-hmbh diagnostic evaluation on this patient on date of service 02/02/24. History, labs, imaging studies, and electronic medical record have been reviewed by me. This note documented by the [x]boathouse keeper []BACILIO reflects my history, exam, and medical [...] creatinine, and vancomycin levels interfaced automatically to [employer] and data has been analyzed and interpreted. [...] DATE: 02/02/24 TIME: 8:07 AM Nelson Nicole shan Clinical Pharmacist Available via Secure Chat Images [...] Does appear to have capacity today - GOC conversation: Goals are focused on [...] Patient is not currently established with a desk attendant. Has had BiPAP for years now [...] anxiety, ETOH abuse, seizures who presented to [place] ED 01/28/2024 from home with concerns of hypoxia and had 2-3 seizures >5 minutes which prompted transfer to [facility]. Patient with trach (possible planning to decannulate from [facility] prior to this admission). Hypoxia improved once [...] Bereavement and grief: Grief Issues Not Identified [place] Symptom Assessment Score [place] Score Pain Score 0 Tiredness Score 0 [...] the note above. GALO Castrejon *Time-based code 42631 for 16-45 minutes. Add-on code 84970 at 46 minutes and each additional 30 [...] not included. Speech-Language Pathology SPEECH LANGUAGE PATHOLOGY [facility] Passy Hamilton Valve Evaluation Patient Name: Luiza May Evaluation [...] while patient is sleeping* No skilled acute [employer] indicated at this time. Please reconsult should [...] infarction (HCC) COPD (chronic obstructive pulmonary disease) ([facility]) Hypertension Past Surgical History: Past Surgical History: Procedure Laterality Date APPENDECTOMY CHOLECYSTECTOMY COLONOSCOPY COLONOSCOPY CT CHEST ANGIOGRAM W AND/OR WO IV CONTRAST 07/26/2022 CT CHEST ANGIOGRAM W AND/OR WO IV CONTRAST 07/26/[address] [facility] [address] IMAGING Admission Diagnosis: Patient Active Problem List Diagnosis Date Noted Status epilepticus (CMS/HCC) ([facility]) 01/28/2024 Seizure ([facility]) 09/26/2023 Severe malnutrition (CMS/HCC) ([facility]) 07/26/2022 COPD exacerbation ([facility]) 07/25/2022 Acute respiratory failure with hypoxia and hypercapnia ([facility]) 09/26/2023 Hemorrhage of gastrointestinal tract 04/17/2017 Cerebrovascular accident (CVA) due to embolism of cerebral artery ([facility]) 02/12/2017 Acute deep vein thrombosis (DVT) of distal vein of right lower extremity ([facility]) 02/12/2017 Encephalopathy 02/12/2017 Posterior reversible encephalopathy syndrome (PRES) 02/12/2017 Alcohol abuse 02/10/2017 NSTEMI (non-ST elevated myocardial infarction) ([facility]) 02/10/2017 History of hematemesis 02/10/2017 History of Present Illness: 68yoF with COPD/seizures and trach from recent admission to [facility], presented earlier today to [facility] with possible seizure. Her family called EMS when the pt had a shaking episode. A+Ox2 per EMS on arrival and pt was brought to the ER. This was around 1000. The ER assessed and sent her home. Later in the day around 1400, the pt had another episode of shaking and was brought back again. At [facility] ER, she has had a negative CTA [...] To keep PMV in place. Therapy Time [employer] Individual Minutes Time In: 1145 Time Out: 1200 Minutes: 15 Juliane Rosenthal Pharmacy to Dose Vancomycin - Progress Note Lab Results Component Value Date CREATININE 0.59 02/01/2024 BUN 21 (H) 02/01/2024 WBC 12.4 (H) 02/01/2024 VANCOTROUGH 30.0 (H) 01/31/2024 Doses, serum creatinine, and vancomycin levels interfaced automatically to [employer] and data has been analyzed and interpreted. [...] DATE: 02/01/24 TIME: 10:09 AM Nelson Nicole [facility] Clinical Pharmacist Available via Secure Chat [facility] Respiratory Care Department Progress Note Trach Mask Trial Start START TIME: 812 HR: 91 RR: 22 Fio2: 40 SpO2: 95 CUFF: Deflated Comments: Thank you for involving Respiratory in the care of this patient, ICU Progress Note Name: Luiza May : 1955(68 y.o.) Date: 02/01/24 Team: MICU Attending: DO Christo Subjective: Hospital Summary: 68yoF with COPD/seizures and trach from recent admission to [facility], presented earlier today to [facility] with possible seizure. Her family called EMS when the pt had a shaking episode. A+Ox2 per EMS on arrival and pt was brought to the ER. This was around 1000. The ER assessed and sent her home. Later in the day around 1400, the pt had another episode of shaking and was brought back again. At [facility] ED, she had a negative CTA/H and [...] Normal [] Scar/Lesion/Mass Inspection of teeth/lips/gums Dentition: []Rappahannock Teeth []Dentures Lips/Gums: []Intact []Lesion Present Mucosa: [][place] []Moist []Dry Neck: External Appearance Overall Appearance: [...] 7.277* -- 7.194* -- -- -- -- YIN3HEN 85.5* -- 99.2* -- -- -- -- PO2ART 83.0 -- 23.5* -- -- -- -- RWT4VHD 39.0* -- 37.4* -- -- -- -- [id number] Other (Add Comment) < > Bi-PAP < [...] and Plan: Principal Problem: Status epilepticus (CMS/HCC) ([facility]) Assessment: Acute on chronic hypoxic and hypercapnic [...] in ICU Status Associated attestation - Mildred Villafuerte, - 02/01/2024 4:05 PM EDT I have personally performed a xyzk-ys-ymhu diagnostic evaluation on this patient on date of service 02/01/24. History, labs, imaging studies, and electronic medical record have been reviewed by me. This note documented by the [x]boathouse keeper []BACILIO reflects my history, exam, and medical [...] naps. Patient needs to establish with a desk attendant. She should not have her trach [...] to PO trials/dysphagia evaluation. Vianca Sharif MA CCC-[employer] [facility] Respiratory Care Department Progress Note Trach [...] creatinine, and vancomycin levels interfaced automatically to [employer] and data has been analyzed and interpreted. [...] as needed. DATE: 01/31/24 TIME: 9:53 AM Nelson Nicole RPh Clinical Pharmacist Available via Secure Chat ICU Progress Note Name: Luiza May : 1955(68 y.o.) Date: 01/31/24 Team: MICU Attending: DO Christo Subjective: Hospital Summary: 68yoF with COPD/seizures and trach from recent admission to [facility], presented earlier today to [facility] with possible seizure. Her family called EMS when the pt had a shaking episode. A+Ox2 per EMS on arrival and pt was brought to the ER. This was around 1000. The ER assessed and sent her home. Later in the day around 1400, the pt had another episode of shaking and was brought back again. At [facility] ED, she had a negative CTA/H and [...] Vitals: BP MAP 114/71 (01/31/24 0645) 78 (01/31/24 0645) Arterial BP MAP Temp 37.2 C (98.9 F) (01/31/24 0400) Pulse 80 (01/31/24 0645) Resp 17 (01/31/24644) SpO2 95 % (01/31/2445) Weight 60.2 kg (132 lb 11.5 oz) (01/31/24 0539) BMI Body mass index is 23.51 kg/m . I/O: 01/29 07 - 01/30 659 In: 1274 [I.V.:1274] Out: [...] Normal [] Scar/Lesion/Mass Inspection of teeth/lips/gums Dentition: []Rappahannock Teeth []Dentures Lips/Gums: []Intact []Lesion Present Mucosa: [][place] []Moist []Dry Neck: External Appearance Overall Appearance: [...] 0000 PROCAL 0.02 0.02 CBC: Recent Labs 01/29/2452101/29/24 0601/30/24 0000 01/30/24 0410 01/30/24 0827 01/31/24 0516 [...] 7.277* -- 7.194* -- -- -- -- [id number] 76.7* 85.5* -- 99.2* -- -- -- -- PO2ART 98.0 83.0 -- 23.5* -- -- -- -- [id number] 39.4* 39.0* -- 37.4* -- -- -- -- [id number] Bi-PAP Other (Add Comment) < > Bi-PAP [...] and Plan: Principal Problem: Status epilepticus (CMS/HCC) ([facility]) Assessment: Acute on chronic hypoxic and hypercapnic [...] PM EDT I have personally performed a qixm-sg-zvcv diagnostic evaluation on this patient on date of service 01/31/24. History, labs, imaging studies, and electronic medical record have been reviewed by me. This note documented by the [x]boathouse keeper []BACILIO reflects my history, exam, and medical [...] creatinine, and vancomycin levels interfaced automatically to [employer] and data has been analyzed and interpreted. [...] for hematoma evac ( at [facility] in [place]) H/o DVT Plan: Maintain delirium protocol. Continue [...] Cefepime vanc Lines/Invasive Equip: PIV CVC Consultants: [employer]([place]) Pharmacy dietitian In my professional opinion this [...] Patient presents with Seizures Pt sent from [facility] for evaluation of seizures. Per transport, pt [...] Found to have elevated CO2. Transferred to [facility] for ongoing mgmt. BP dropped 01/29/24 requiring [...] Resp 22 (01/30/24 0645) SpO2 100 % (01/30/24644) Weight 62.5 kg (137 lb 12.6 oz) [...] for hematoma evac ( at [facility] in [place]) H/o DVT Plan: Delirium protocol. Melatonin nightly. [...] Cefepime vanc Lines/Invasive Equip: PIV Consultants: [facility] dietitian In my professional opinion this [...] Patient presents with Seizures Pt sent from [facility] for evaluation of seizures. Per transport, pt [...] Found to have elevated CO2. Transferred to [facility] for ongoing mgmt. Interval Events : Tolerated [...] nursing note reviewed. Exam conducted with a instructor psychiatric aide present. Constitutional: General: She is awake. She [...] Behavior is cooperative. documented in this encounter [facility] 02-11-2024 Telephone encounter Note Phoned Denis and went over notes below from Dr Franco with understanding. [facility] 02-11-2024 Miscellaneous Notes Phoned Denis and went over notes below from Dr Franco with understanding. Yes, Will follow Maryam Mohamud MD Denis from [facility] calling trying to set up home health for the patient. She will be discharging possible this weekend, there for prolonged seizure. Has orders for mcfp, PT/OT. She is asking if PCP would follow patient and sign orders? Nurse is there today until 5 pm. Please advise documented in this encounter [facility] 02-11-2024 Telephone encounter Note Yes, Will follow Maryam Mohamud MD [facility] 02-11-2024 Telephone encounter Note Denis from [facility] calling trying to set up home health for the patient. She will be discharging possible this weekend, there for prolonged seizure. Has orders for mcfp, PT/OT. She is asking if PCP would follow patient and sign orders? Nurse is there today until [address] [facility] 02-11-2024 Nurse Note Right internal jugular removed. Pressure hold on the site after removal. Pt tolerated well. Pt up and walking with this RN in room and out in devlin. Tolerated well. documented in this encounter [facility] 02-11-2024 Hospital Discharge instructions Denis Dan - 02/11/2024 10:31 AM EDT Images from the [...] Contact Information Primary Emergency Contact: AMEENA MAY ([place]) Mobile Relation: Daughter Secondary Emergency Contact: Gene Mills Mobile Relation: Son Preferred language: Singaporean Hydrographic Surveyor needed? No Past Surgical History: Past Surgical History: Procedure Laterality Date APPENDECTOMY CHOLECYSTECTOMY COLONOSCOPY COLONOSCOPY CT CHEST ANGIOGRAM W AND/OR WO IV CONTRAST 07/26/2022 CT CHEST ANGIOGRAM W AND/OR WO IV CONTRAST 07/26/[address] [facility] [address] IMAGING Immunization History: Immunization History Administered [...] (129 lb) Mental Status: {POONAM Patient Mental Status:66449} IV Access: {POONAM IV Access:37016} Nursing Mobility/ADLs: Walking {RADHA ADL::: Independent } Transfer {RADHA ADL::: Independent } Bathing {RADHA ADL::: Independent } Dressing {RADHA ADL::: Independent } Toileting {RADHA ADL::: Independent } Feeding {RADHA ADL::: Independent } Network Director {RADHA ADL::: Independent } Med Delivery {yes/no:00152} Wound Care Documentation and Therapy: Elimination: Continence: Bowel: {yes/no:} Bladder: {yes/no:35778} Urinary Catheter: {POONAM Urinary Catheter:55995} Colostomy/Ileostomy/Ileal Conduit: {YES / NO:} Date of Last BM: Intake/Output Summary (Last 24 hours) at 02/11/2024 1030 Last data filed at 02/10/2024 1800 Gross per 24 hour Intake 200 ml Output -- Net 200 ml I/O last 3 completed shifts: In: 500 (8.5 mL/kg) [P.O.:500] Out: 600 (10.3 mL/kg) [Urine:600 (0.3 mL/kg/hr)] Weight: 58.5 kg Safety Concerns: {POONAM Safety Concerns:50028} Impairments/Disabilities: {POONAM Impairments/Disabilities:40451} Nutrition Therapy: Current Nutrition Therapy: {POONAM Diet List:13944} Routes of Feeding: {routes of feedin} Liquids: {liquid consistency:20170} Daily Fluid Restriction: {daily fluid restriction:51837} Last Modified Barium Swallow with Video (Video Swallowing Test): {done not done:60852} Treatments at the Time of Hospital Discharge: Respiratory Treatments: Oxygen Therapy: {Therapy; copd oxygen:86665} Ventilator: {POONAM Ventilator:46120} Rehab Therapies: {GEN THERAPY DISCIPLINE SCAL:9620991} Weight Bearing Status/Restrictions: {POD WEIGHT BEARIN} Other Medical Equipment (for information only, NOT a DME order): {Assistive Devices DME:19986} Other Treatments: Patient's personal belongings (please select all that are sent with patient): {POONAM Patient Belongings:60194} RN SIGNATURE: {E-signature:93933} CASE MANAGEMENT/SOCIAL WORK SECTION Inpatient Status Date: 01/28/24 Discharging to Facility/ Agency [facility] (if applicable) Name: Address: Dialysis Schedule: Phone: Fax: Acquisition Lead/Associate Dean Of Women signature: ICIAN SECTION Name: Luiza May Prognosis: {Rehab Prognosis:30328} Condition at Discharge: {Patient Condition:28270} Rehab Potential (if transferring to Rehab): {Rehab Prognosis:11434} Recommended Labs or Other Treatments After Discharge: The individual is being admitted to a nursing facility directly from an [facility] or a unit of a [facility] that is not operated by or licensed by [facility] under section 5119.14 or 5160-3-15.1 5 The individual requires the level of services provided by a nursing facility for the condition for which he or she was treated in the hospital and, Physician Certification: I certify the above information and transfer of Luiza May is necessary for the continuing treatment of the diagnosis listed and that she requires {POONAM Level of Care:37664} for {greater less than:96139} 30 days. Update Admission H&P: {POONAM Changes in H&P:52726} PHYSICIAN SIGNATURE: {E-signature:10520} documented in this encounter [facility] 02-10-2024 Note Referral placed to [facility] via [facility] per TCC request. Await review and response regarding ability to accept. TCC notified. [facility] 02-08-2024 Note Palliative Care, Radha atic, along with Critical Care procedure & progress notes transmitted to [facility]hab. Electronically signed by [facility] 02-07-2024 Note Referral placed to [facility] via [facility]port per TCC request. Await review and response regarding ability to accept. TCC notified. Electronically Signed by [facility] 02-07-2024 Note [facility] 02-07-2024 Procedure note Procedure: Tracheostomy replacement Original [...] Follow-up chest x-ray: ordered Assistants & Supervision: [place] [employer] Group Leader(s): Adriano Marr MD Quality Engineer: Adriano Marr MD The attending physician was [...] during procedure: None Patient tolerated procedure: Yes Adriano Marr DO CCM ATTENDING 10:55 AM 01/30/24 documented in this encounter [facility] 02-05-2024 Consult note Associated Order (s): IP CONSULT TO GERIATRICS [facility] Geriatric Medicine Inpatient Consult Service Admission Date: 01/28/2024 Admission Status: INPATIENT Chief Complaint: Chief Complaint Patient presents with Seizures Pt sent from [facility] for evaluation of seizures. Per transport, pt [...] & Plan Principal Problem: Status epilepticus (CMS/HCC) ([facility]) Cognitive Impairment --Mild to moderate deficits on [...] symptoms --Recommend outpatient [facility] at [facility] for [...] PEG on 10/04/2023 subsequently admitted 10/11 to [facility] in [place]. 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, snf memory is ok, but short term memory [...] years Advance Care Planning Healthcare Power of Crayon Grader: No Financial Power of Crayon Grader: No Living Will:No Code Status: Full Code [...] mg, 50 mg, Oral, Nightly PRN, Estela Ngojarvis Hurst DO, 50 mg at 02/04/242103 Past Medical History: Diagnosis Date Asthma CAD (coronary artery disease) Cerebral artery occlusion with cerebral infarction (HCC) COPD (chronic obstructive pulmonary disease) (HCC) Hypertension Past Surgical History: Procedure Laterality Date APPENDECTOMY CHOLECYSTECTOMY COLONOSCOPY COLONOSCOPY CT CHEST ANGIOGRAM W AND/OR WO IV CONTRAST 07/26/2022 CT CHEST ANGIOGRAM W AND/OR WO IV CONTRAST 07/26/[address] [facility] [address] IMAGING Social History Tobacco Use Smoking [...] to interview and exam Mini-Mental Status Exam: 8/10 orientation, 3/3 registration, 0/5 calculations, 1/3 recall, [...] 316 ms QTC Interval 447 ms P [place] 81 degrees QRS [place] 42 degrees T Wave [place] -55 degrees NV Interval 104 ms Lab Results Component Value Date TSH 1.148 01/29/2024 No components found for: B12 No results found for: VITD25 Reviewed: medication list, allergies, family history, social history, notes from last several encounters, lab results, imaging Follow-up: Follow up at [facility] in 4-6 weeks (Please note: Portions of [...] longer on AED at home -Currently on [facility] inpatient Altered mentation - likely 2/2 hypercarbia [...] anxiety, ETOH abuse, seizures who presented to [facility] 01/28/2024 from home with concerns of hypoxia and had 2-3 seizures >5 minutes which prompted transfer to [facility]. Patient with trach (possible planning to decannulate [...] a voluntary Advance Care Planning conversation. Luiza May's capacity for medical decision-making is questionable. [...] the note above. GALO Castrejon *Time-based code 57691 for 16-45 minutes. Add-on code 23421 at 46 minutes and each additional 30 [...] ANGIOGRAM W AND/OR WO IV CONTRAST 07/26/[address] [facility] [address] IMAGING No family history on file. [...] alone after becoming frustrated about hospital stay [place] Symptom Assessment Score [place] Score Pain Score 0 Tiredness Score 3 [...] Assessed by: patient and provider. Social history: [place] status: no Marital status: Living status: with [...] PALLIATIVE CARE Consult acknowledged. Chart reviewed. Luiza May is a 68 y.o. female with who [...] loss Fluid Accumulation: No significant fluid accumulation Field Recorder Strength: Not Performed Nutrition Assessment: Per chart: Pt with PMH including COPD/seizures and trach from recent admission to [facility], presented earlier today to [place] with possible seizure. Her family called EMS when the pt had a shaking episode. A+Ox2 per EMS on arrival and pt was brought to the ER. This was around 1000. The ER assessed and sent her home. Later in the day around 1400, the pt had another episode of shaking and was brought back again. At [place] [facility], she has had a negative CTA [...] (kg): 59.8 kg Total Energy Requirements (kcals/day): 3580-8285 Weight Used for Protein Requirements: Admission (1.0-1.2 [...] 1,000 mg, IntraVENous, q12h BMP: Recent Labs 01/28/24195301/28/24220001/29/24 0522 NA -- 140 143 K -- [...] Weight: 59.8 kg (131 lb 13.4 oz) ([facility] 01/27) Admission Body Weight: 59.8 kg (131 lb 13.4 oz) ([facility] 01/27) Usual Body Weight: (119# on 02/05/23, 133# on 05/24/23, 130# on 12/24/23) [place] Body Weight (lbs) (Calculated): 115 lbs [place] Body Weight (Kg) (Calculated): 52 kg % [place] Body Weight (Calculated): 114.6 % BMI (kg/m2) [...] to determine Ginny Reid RD, LD Contact: *[phone] or via Meshfire chat Images from the original note were [...] 12 hours) Date/Time Action Medication Dose 01/28/24 208 Given mupirocin (Bactroban) 2 % ointment 1 Application 1 Application 01/28/242218 New Bag cefepime (Maxipime) 2,000 mg in sodium chloride 0.9 % 50 mL IVPB Mini-Bag Plus 2,000 mg Assessment/Plan: Doses, serum creatinine, and vancomycin levels interfaced automatically to eRepublik and data has been analyzed and interpreted. [...] COPD/seizures and trach from recent admission to [facility], presented earlier today to [place] with possible seizure. Her family called EMS when the pt had a shaking episode. A+Ox2 per EMS on arrival and pt was brought to the ER. This was around 1000. The ER assessed and sent her home. Later in the day around 1400, the pt had another episode of shaking and was brought back again. At [place] ER, she has had a negative CTA [...] ANGIOGRAM W AND/OR WO IV CONTRAST 07/26/[address] [facility] [address] IMAGING No family history on file. [...] Resource Strain: Low Risk (10/13/2023) Received from [facility], [facility] Overall Financial Resource Strain (CARDIA) Difficulty of Paying Living Expenses: Not hard at all Food Insecurity: No Food Insecurity (10/13/2023) Received from [facility], [facility] Hunger Vital Sign Worried About Running Out of Food in the Last Year: Never true Ran Out of Food in the Last Year: Never true Transportation Needs: No Transportation Needs (08/09/2023) Received from [facility], [facility] PRAPARE - Transportation Lack of Transportation (Medical): No Lack of Transportation (Non-Medical): No Physical Activity: Unknown (07/26/2022) Exercise Vital Sign Days of Exercise per Week: Not on file Minutes of Exercise per Session: 20 min Stress: Stress Concern Present (10/14/2023) Received from [facility], [facility] [place] of Occupational Health - Occupational Stress Questionnaire Feeling of Stress : To some extent Social Connections: Moderately Isolated (10/13/2023) Received from [facility], [facility] Social Connection and Isolation Panel [NHANES] Frequency of Communication with Friends and Family: More than three times a week Frequency of Social Gatherings with Friends and Family: Twice a week Attends Christianity Services: Never Active Member of Clubs or [...] Per G Tube route Nightly. 10/12/23 10/11/24 Crysprieto Soire, DO budesonide (Pulmicort) 0.5 MG/2ML nebulizer solution [...] Per G Tube route Nightly. 10/12/23 Crysprieto Soire, DO ipratropium-albuterol (Duo-Neb) 0.5-2.5 mg/3 mL nebulizer solution Take 3 mL by nebulization every 4 hours. 10/12/23 10/11/24 Crysprieto Canseco, DO levETIRAcetam (Keppra) 100 MG/ML solution 10 mL (1,000 mg) by Per G Tube route 2 times daily. 10/12/23 10/11/24 Crysprieto Soire, DO Propylene Glycol-Glycerin (Artificial tears) 1-0.3 % solution Administer 1 drop into both eyes 3 times daily as needed (dry eyes). 10/12/23 Crysprieto Canseco, DO QUEtiapine (SEROquel) 50 MG tablet 1 tablet (50 mg) by Per G Tube route Nightly. 10/12/23 Crysprieto Soire, DO rOPINIRole (Requip) 1 MG tablet 1 tablet (1 mg) by Per G Tube route Nightly. 10/12/23 Crsyprieto Soire, DO Senna (Senokot) 8.8 MG/5ML syrup 10 mL by Per G Tube route 2 times daily. 10/12/23 Crys Ajith, DO Objective: Oxygen Delivery: O2 Flow Rate [...] Normal [] Scar/Lesion/Mass Inspection of teeth/lips/gums Dentition: [][place] Teeth []Dentures Lips/Gums: [x]Intact []Lesion Present Mucosa: [x][place] [x]Moist []Dry Neck: External Appearance Overall Appearance: [...] physicians, excluding procedures. documented in this encounter [facility] 01-30-2024 Note [facility] 01-29-2024 Note [facility] 01-28-2024 History and physical note See consult note dated today for H+P. documented in this encounter [facility] 01-28-2024 Note See consult note chance ed today for H+P. [facility] 01-28-2024 Emergency department Note EMERGENCY DEPARTMENT ENCOUNTER Pt Name: Luiza May Birthdate 1955 Date of evaluation: 01/28/2024 ED Provider: KATINA SOAS DO CHIEF COMPLAINT Chief Complaint Patient presents with Seizures Pt sent from [facility] for evaluation of seizures. Per transport, pt [...] complaining of seizures. Patient transferred here from [place] after she reportedly had 2 seizures lasting [...] ANGIOGRAM W AND/OR WO IV CONTRAST 07/26/[address] [facility] [address] IMAGING CURRENT MEDICATIONS Previous Medications ARIPIPRAZOLE [...] Resource Strain: Low Risk (10/13/2023) Received from [facility], [facility] Overall Financial Resource Strain (CARDIA) Difficulty of Paying Living Expenses: Not hard at all Food Insecurity: No Food Insecurity (10/13/2023) Received from [facility], [facility] Hunger Vital Sign Worried About Running Out of Food in the Last Year: Never true Ran Out of Food in the Last Year: Never true Transportation Needs: No Transportation Needs (08/09/2023) Received from [facility], [facility] PRAPARE - Transportation Lack of Transportation (Medical): No Lack of Transportation (Non-Medical): No Physical Activity: Unknown (07/26/2022) Exercise Vital Sign Minutes of Exercise per Session: 20 min Stress: Stress Concern Present (10/14/2023) Received from [facility], [facility] [place] [facility] Occupational Health - Occupational Stress Questionnaire Feeling of Stress : To some extent Social Connections: Moderately Isolated (10/13/2023) Received from [facility], [facility] Social Connection and Isolation Panel [NHANES] Frequency of Communication with Friends and Family: More than three times a week Frequency of Social Gatherings with Friends and Family: Twice a week Attends Christianity Services: Never Active Member of Clubs or [...] Housing in the Last Year: No SCREENINGS Basil Coma Scale Best Eye Response: Spontaneous Best Verbal Response: Confused Best Motor Response: Follows commands [place]andon Coma Scale Score: 14 PHYSICAL EXAM ED Triage Vitals Temp Heart Rate Resp BP 01/28/24 1850 01/28/24 1850 01/28/24 1850 01/28/24 1850 37.7 C (99.8 F) 101 26 110/53 SpO2 Temp Source Heart Rate Source Patient Position 01/28/24 1850 01/28/241849 -- -- 99 % Oral BP Location [...] ICU. Diagnoses as of 01/28/242134 Status epilepticus ([facility]) ([facility]) External records reviewed: Records from ED from which patient came Diagnostics interpreted by me: Jolie(s) as above Discussions with other clinicians: Anesthesiology Tech ICU Chronic conditions impacting care: Seizure disorder, [...] Procedures FINAL IMPRESSION 1. Status epilepticus (CMS/HCC) ([facility]) DISPOSITION Admit 01/28/2024 09:34:51 PM PATIENT REFERRED [...] Emergency Medicine Provider Katina Sosa DO Resident 01/28/24 9017 Emergency Department Encounter [facility] CTV ICU T1 Patient: Luiza Mya : 1955 Date of Evaluation: 01/28/2024 ED [...] bystanders following which she was taken to [facility]. Upon arrival there patient had another seizure. [...] Triage Vitals Temp Heart Rate Resp BP 01/28/24 1850 01/28/24 1850 01/28/24184901/28/241849 37.7 C (99.8 F) 101 26 110/53 SpO2 Temp Source Heart Rate Source Patient Position 01/28/24 18501/28/24184901/28/24234401/28/242344 99 % Oral Monitor Sitting BP Location FiO2 (%) 01/28/24234401/28/242024 Right arm 60 % Focused exam: Bfl-erd-hlxhulmun in no acute distress. Alert and oriented [...] positive Coronavirus (not SARS-CoV-2) result on the BioFire Pneumonia PCR Panel should be taken in the context of other clinical data as increased false positive detection has been noted by the explosive ordnance disposal technician. Consider collecting a nasopharyngeal sample for the [...] as of 01/29/24 0218 Status epilepticus (CMS/HCC) (HCC) Presenting for evaluation for seizure activity from [...] but occasionally words are mis-transcribed.) MD Em Mcdaniel MD 02/13/24 0104 documented in this encounter [facility] 01-27-2024 Note HNO ID: [id number] Author: JACKIE VALDEZ MA Service: ? Author Type: Hydro Sprayer Operator Type: Progress Notes Filed: 01/27/2024 09:05 Note Text: POPULATION HEALTH NAVIGATION OUTREACH Action/FYI Letter received and sent to be mailed. Navigation Signature: Jackie Valdez Population Health Navigator January 27, 2024 9:05 AM [facility] 01-26-2024 Telephone encounter Note Patient notified of provider's instructions and refill sent to pharmacy. Patient verbalizes understanding. Patient will call back to schedule this at another date. Ginny Moreland RN [facility] 01-26-2024 Miscellaneous Notes Patient notified of provider's [...] 2024 4:18 PM documented in this encounter [facility] 01-26-2024 Telephone encounter Note With her multiple falls resulting in injury, I would like her to see geriatrics. Refilled ambien at this time. Thank you Joan Johnson APRN.JAMES [facility] 01-25-2024 Telephone encounter Note The patient has [...] Nobles RN January 25, 2024 4:[address] [facility] 01-24-2024 Note HNO ID: [id number] Author: DARIEN BARNARD MA Service: ? Author Type: Hydro Sprayer Operator Type: Progress Notes Filed: 01/24/2024 09:04 Note Text: POPULATION HEALTH NAVIGATION OUTREACH Action/FYI Patient is on [facility] CURRENT ROSTER Workbench list for below and [...] Barnard MA January 24, 2024 7:23 AM [facility] 01-24-2024 History of Present illness Narrative POPULATION HEALTH NAVIGATION OUTREACH Action/FYI Patient is on [facility] CURRENT ROSTER Workbench list for below and [...] 2024 7:23 AM documented in this encounter [facility] 01-24-2024 Note Patient Outreach (NE TNAV) -------- LUIZA MAY ([id number]) 1955 F Date Time Provider Department 01/24/24 DARIEN BARNARD During your visit today, we recorded the following information about you: Darien Barnard MA 01/24/2024 9:04 AM Signed POPULATION HEALTH NAVIGATION OUTREACH Action/ Patient is on [facility] CURRENT ROSTER Workbench list for below and [...] Population Health Navigation Outreach [3910] [facility]: [facility] [place] [facility] Prescriptions as of 01/27/2024 - zolpidem (AMBIEN) [...] by this patient by: PATIENT Seth Chawla [facility] Problem List As Of Date 01/24/2024 Noted [...] 11/03/2022 01/03/2024 Seizure- (more content not included)... [facility] 01-21-2024 Telephone encounter Note Spoke with [facility] and patient did confirm with pharmacy that she is no longer taking phenytoin. [facility] 01-21-2024 Miscellaneous Notes Spoke with [facility] and patient did confirm with pharmacy that she is no longer taking phenytoin. Phone call to [facility] to inform that our records show pt not taking on 12/02/23. Pharmacy states they last delivered on 12/13/23. [facility] will call patient to confirm that she is not taking. [facility] will return call to our office to inform if patient taking or not. Joanie Barclay MA [facility] in [place] calling for a refill of Rx Phenytoin (not seen in current refill list). Any questions please call them at [phone] documented in this encounter [facility] 01-20-2024 Telephone encounter Note Maurice Delgado nurse with [facility] called and is notified of providers results and instructions. Pt voices understanding. Nicole Rudd RN [facility] 01-20-2024 Miscellaneous Notes Maurice Delgado nurse with [facility] called and is notified of providers results and instructions. Pt voices understanding. Nicole Rudd RN PCP agreeable to follow and sign. Thank you Joan Johnson APRN.CLEAN UP WORKER Maurice henriquez with [facility] calling to confirm that provider will continue to follow and sign orders for pt for mcfp. Please call Maurice back after provider review and confirmation. documented in this encounter [facility] 01-20-2024 Telephone encounter Note PCP agreeable to follow and sign. Thank you Joan Johnson APRN.CLEAN UP WORKER [facility] 01-20-2024 Telephone encounter Note Maurice Delgado nurse with [facility] calling to confirm that provider will continue to follow and sign orders for pt for mcfp. Please call Maurice back after provider review and confirmation. [facility] 01-19-2024 Telephone encounter Note Phone call to [facility]'s pharmacy to inform that our records show pt not taking on 12/02/23. Pharmacy states they last delivered on 12/13/23. [facility] will call patient to confirm that she is not taking. [facility] will return call to our office to inform if patient taking or not. Joanie Barclay MA [facility] 01-19-2024 Telephone encounter Note [facility] in [place] calling for a refill of Rx Phenytoin (not seen in current refill list). Any questions please call them at [phone] [facility] 01-07-2024 Telephone encounter Note Called Ameena, patient's daughter. She stated she was able to get an appointment locally for trach decannulation. She defers appointment with our IP team at [facility] at this time. Ameena was thankful for the call back and will call our office if there any any issues or questions. Adriane Riley APRN.CNP January 07, 2024 3:[address] [facility] 01-07-2024 Miscellaneous Notes Called Ameena, patient's daughter. She stated she was able to get an appointment locally for trach decannulation. She defers appointment with our IP team at [facility] at this time. Ameena was thankful [...] her trach removed. documented in this encounter [facility] 01-05-2024 Telephone encounter Note Luiza's daughter called [...] he has referred her to [facility]NT and [facility], which we are not able to schedule with. She voiced understanding. Additional message sent to the pulmonary department. Patsy Sagastume RN [facility] 01-05-2024 Miscellaneous Notes Luiza's daughter called again [...] he has referred her to ENT and [facility], which we are not able to [...] pts daughter, Ameena. documented in this encounter [facility] 01-05-2024 Telephone encounter Note Luiza's daughter called [...] Sagastume RN January 05, 2024 11:45 AM [facility] 01-05-2024 Telephone encounter Note Pts daughter [...] removed them. Please advise pts daughter, Ameena. [facility] Work Phone: 01-04-2024 Telephone encounter Note [...] agreeable to do so and transferred to appointment manager. Pt to see [facility] as advised by provider yesterday, as well. Gisell Mendoza RN T [facility] 01-04-2024 Miscellaneous Notes Pt was seen by [...] agreeable to do so and transferred to appointment manager. Pt to see [facility] as advised by provider yesterday, as well. Gisell Mendoza RN documented in this encounter [facility] 01-04-2024 Telephone encounter Note Patient called and self referring. She is looking to have her trach removed. [facility] 01-03-2024 Note HNO ID: [id number] Author: ISSA HERMAN MD Service: ? Author Type: Physician Type: Progress Notes Filed: 01/03/2024 15:05 Note Text: This note was created using Xamplifiedter. Subjective Luiza May is a 68 year old female. PCP Maryam Franco MD. She was here with her significant other. She initially stated she had not been to ENT, but partner indicated they were there a few weeks ago. Tracheostomy was not removed, reason was not clear. She was supposed to see her [facility], but was unable to schedule, possibly [...] (HCC) - ICD9: 496, ICD10: J44.9 See [facility]. They may need to address #1. Issa Herman MD [facility] 01-03-2024 History of Present illness Narrative [...] clear. She was supposed to see her [facility], but was unable to schedule, possibly [...] (HCC) - ICD9: 496, ICD10: J44.9 See [facility]. They may need to address #1. Issa Herman MD documented in this encounter [facility] 12-30-2023 Telephone encounter Note Prescription sent as requested. Joan Johnson APRN.CNP PDMP website checked and validated. All prescriptions have been APPROPRIATELY filled. No suspicious activity was identified. 12/30/2023 by Joan Johnson APRN.CNP [facility] 12-30-2023 Miscellaneous Notes Prescription sent as requested. Joan Johnson APRN.CNP PDMP website checked and validated. All prescriptions have been APPROPRIATELY filled. No suspicious activity was identified. 12/30/2023 by Joan Johnson APRN.CNP Pharmacy notified and prescription cancelled. Tried calling Pharmacy, closed for lunch. Will try back after 1 Please call [facility] to cancel already sent prescription [facility] to [facility]. Thank you Joan Johnson APRN.CNP Pended Rx to correct Pharmacy. Update pt once sent. Lorrie Allen MA Patient's Ambien Rx was sent to [place] [facility] with a fill date of 01/01/24. Patient wants to know if it can be switched to [facility] in [place]. documented in this encounter [facility] 12-30-2023 Telephone encounter Note Pharmacy notified and prescription cancelled. [facility] 12-30-2023 Telephone encounter Note Tried calling Pharmacy, closed for lunch. Will try back after 1 [facility] 12-30-2023 Telephone encounter Note Please call [facility] to cancel already sent prescription prior to [facility]. Thank you Joan Older, PUBLIC WORKS MANAGER.CLEAN UP WORKER [facility] 12-30-2023 Telephone encounter Note Pended Rx to correct Pharmacy. Update pt once sent. Lorrie Allen MA [facility] 12-30-2023 Telephone encounter Note Patient's Ambien Rx was sent to [place] [facility] with a fill date of 01/01/24. Patient wants to know if it can be switched to [facility] in [place]. [facility] 12-30-2023 Telephone encounter Note Prescription Refill Information [...] Norton LPN December 30, 2023 7:54 AM [facility] 12-30-2023 Miscellaneous Notes Prescription Refill Information The [...] 2023 6:22 PM documented in this encounter [facility] 12-29-2023 Telephone encounter Note Prescription Refill Information [...] Izabela Charles December 29, 2023 6:[address] [facility] 12-27-2023 Telephone encounter Note PDMP website checked and validated. All prescriptions have been APPROPRIATELY filled. No suspicious activity was identified. 12/27/2023 by Joan Johnson APRN.CLEAN UP WORKER [facility] 12-27-2023 Miscellaneous Notes PDMP website checked and validated. All prescriptions have been APPROPRIATELY filled. No suspicious activity was identified. 12/27/2023 by Joan Johnson APRN.CNP Prescription Refill Information The patient has been [...] 2023 2:48 PM documented in this encounter [facility] 12-24-2023 Note HNO ID: [id number] Author: DEX HDZ MD Service: ? Author Type: Physician Type: Progress Notes Filed: 12/24/2023 17:02 Note Text: FOLLOW UP VISIT - PEG TUBE REMOVAL NAME: Luiza May [facility] NO.: [id number] DATE OF SERVICE: 12/24/2023 : 1955 REFERRING [...] balloon currently deflated. This was placed at [facility]. She has an appointment with pulmonary at [facility] on January 12 she tells me. Luiza [...] with me as needed. Dex Hdz MD [facility] 12-24-2023 History of Present illness Narrative FOLLOW UP VISIT - PEG TUBE REMOVAL NAME: Luiza Brown [facility] NO.: [id number] DATE OF SERVICE: 12/24/2023 : 1955 REFERRING [...] balloon currently deflated. This was placed at [facility]. She has an appointment with pulmonary at [facility] on January 12 she tells me. Luiza [...] (primary encounter diagnosis) (Z93.1) Gastrostomy in place ([facility]) This note was forwarded to DR. Herman Return to Clinic: The patient is instructed to follow-up with me as needed. Dex Hdz MD documented in this encounter [facility] 12-24-2023 Telephone encounter Note Prescription Refill Information [...] Norton LPN December 24, 2023 3:[address] [facility] 12-24-2023 Nurse Note REVIEW OF SYSTEMS: General: [...] Unknown Last Colonoscopy: [address] [facility] 12-24-2023 Nurse Note REVIEW OF SYSTEMS: General: [...] Unknown Last Colonoscopy: 2016 Patsy Sagastume RN documented in this encounter [facility] 12-24-2023 Telephone encounter Note Prescription Refill Information [...] Jackie Magaña December 24, 2023 2:[address] [facility] 12-21-2023 Telephone encounter Note Maurice notified. [facility] 12-21-2023 Miscellaneous Notes Maurice notified. Okay for nystatin powder with dressing changes Lise Major APRN.CNP Maurice from [facility] calling mcfp visits will remain 2 times weekly for 6 weeks. Trying to educate patient to keep dressing around her G-tube. Area surrounding G-tube is red and irritated, nursing is using nystatin powder with dressing changes, if that is alright with the provider? Aware patient has General Surgery appt on Wednesday12/24/2023. Please advise documented in this encounter [facility] 12-21-2023 Telephone encounter Note Okay for nystatin powder with dressing changes Lise Major APRN.JAMES [facility] Work Phone: 12-21-2023 Telephone encounter Note Maurice from [facility] calling mcfp visits will remain 2 times weekly for 6 weeks. Trying to educate patient to keep dressing around her G-tube. Area surrounding G-tube is red and irritated, nursing is using nystatin powder with dressing changes, if that is alright with the provider? Aware patient has General Surgery appt on Wednesday12/24/2023. Please advise [facility] 12-17-2023 Telephone encounter Note Requested Prescriptions Refused Prescriptions Disp Refills zolpidem (AMBIEN) 10 mg 30 tablet 0 Sig: Take 1 tablet by mouth at bedtime as needed (insomnia) for up to 30 days. Refused By: ISSA HERMAN Reason for Refusal: Patient needs appointment Issa Herman MD [facility] 12-17-2023 Miscellaneous Notes Requested Prescriptions Refused Prescriptions [...] needed (insomnia) for up to 30 days. Tao Meyers RN December 17, 2023 2:49 PM documented in this encounter [facility] 12-17-2023 Telephone encounter Note The patient has [...] needed (insomnia) for up to 30 days. Tao Meyers RN December 17, 2023 2:[address] [facility] 12-16-2023 Note HNO ID: [id number] Author: GAGAN SCHUSTER RN Service: ? Author [...] seen in the Emergency Department (ED) Location: [facility] Date: 12/13/23 Reason for ED Visit: Concern for trach infection/per daughter pt was hallucinating Had not been wearing her bipap that night ED Intervention: trach culture sent Given rx for Bactrim Based on district extension service agent, the following disposition is advised: No symptoms or symptoms present, not severe. Routed to: No Action Needed NIKA Education Provided this Outreach: No Gagan Schuster RN December 16, 2023 12:19 PM [facility] 12-16-2023 History of Present illness Narrative [...] seen in the Emergency Department (ED) Location: [facility] Date: 12/13/23 Reason for ED Visit: Concern for trach infection/per daughter pt was hallucinating Had not been wearing her bipap that night ED Intervention: trach culture sent Given rx for Bactrim Based on district extension service agent, the following disposition is advised: No symptoms or symptoms present, not severe. Routed to: No Action Needed NIKA Education Provided this Outreach: Melanie Schuster RN December 16, 2023 12:19 PM documented in this encounter [facility] 12-16-2023 Note Patient Outreach ([facility] -------- LUIZA MAY ([id number]) 1955 F Date Time Provider Department 12/16/23 GAGAN SCHUSTER [facility] During your visit today, we recorded the [...] with a significant other and does receive [facility] Patient seen in ED: Out of Network ED Contact made with Patient: Yes The patient was identified by Name and Date of . Discussed Care with: daughter Patient was seen in the Emergency Department (ED) Location: [facility] Date: 12/13/23 Reason for ED Visit: Concern for trach infection/per daughter pt was hallucinating Had not been wearing her bipap that night ED Intervention: trach culture sent Given rx for Bactrim Based on district extension service agent, the following disposition is advised: No symptoms [...] managed by this patient by: PATIENT Seth Wally [facility] Problem List As Of Date 12/16/2023 Noted [...] 08/10/2023 Hypomagnesemia [E83.42 (more content not included)... [facility] 12-15-2023 Telephone encounter Note Spoke with pt and she has not picked up the 30 day supply from 12-02-23 per pt. Pt will check with the pharmacy. Nava Connell LPN [facility] 12-15-2023 Miscellaneous Notes Spoke with pt and [...] not found Please advise. Thank you. Jackie Evans Pss. documented in this encounter [facility] 12-14-2023 Telephone encounter Note TC no answer. Left VM to return call. WIL Meyer [facility] 12-13-2023 Telephone encounter Note Attempted to contact Ag Rhoades, nurse with [facility] but no answer. Left message to call and ask to speak to a nurse regarding an appointment with primary regarding a couple questions. Wanted to know how often they will be visiting patient. Patient wouldn't necessarily need f/u with primary unless wound is not healing. When they do their visit, are they able to check wound and let us know if follow up is needed. [facility] 12-13-2023 Miscellaneous Notes Attempted to contact Ag Rhoades, nurse with [facility] but no answer. Left message to call and ask to speak to a nurse regarding an appointment with primary regarding a couple questions. Wanted to know how often they will be visiting patient. Patient wouldn't necessarily need f/u with primary unless wound is not healing. When they do their visit, are they able to check wound and let us know if follow up is needed. Check [facility] hospital records to see if needing PCP visit in addition to general surgery. Ag Rhoades, nurse with [facility] calling with update that patient went to [facility] ER on 12/06/23. Patient to follow up with General Surgery. Pt has appt with General Surgery on 12/24/23. Please contact patient if follow-up with PCP is advised, as well. Gisell Mendoza, RN documented in this encounter [facility] 12-13-2023 Telephone encounter Note She filled a 30 day supply on 12/02/[address] Cheatham, should not need a refill today. Why requesting? [facility] 12-13-2023 Telephone encounter Note See other note regarding this patient today, can address in other phone encounter. [facility] 12-13-2023 Miscellaneous Notes See other note regarding this patient today, can address in other phone encounter. CAROLI: Radha with [facility] calls to report she had pt squaded to [facility]. Radha reports pt showed signs of infection in G-tube and trach. Pt was hallucinating. Bhavana Garza LPN documented in this encounter [facility] 12-13-2023 Telephone encounter Note Check [facility] hospital records to see if needing PCP visit in addition to general surgery. [facility] 12-13-2023 Telephone encounter Note CAROLI: Radha with [facility] calls to report she had pt squaded to [facility]. Radha reports pt showed signs of infection in G-tube and trach. Pt was hallucinating. Bhavana Garza LPN [facility] 12-13-2023 Telephone encounter Note Ag Rhoades, nurse with [facility] calling with update that patient went to [facility] ER on 12/06/23. Patient to follow up with General Surgery. Pt has appt with General Surgery on 12/24/23. Please contact patient if follow-up with PCP is advised, as well. Gisell Mendoza RN [facility] 12-10-2023 History of Present illness Narrative ED [...] seen in the Emergency Department (ED) Location: [place] Date: 12/06/23 Reason for ED Visit: wellness vs ED Intervention: Chest x ray done per daughter pt recently d/c from [facility] has her trach and peg Per daughter pt [facility] Is currently eating Cpap@ nite Per daughter,plan is to discontinue peg and trach soon Discussed f/u with pcp Based on district extension service agent, the following disposition is advised: No symptoms or symptoms present, not severe. Routed to: No Action Needed NIKA Education Provided this Outreach: Melanie Schuster RN December 10, 2023 1:58 PM documented in this encounter [facility] 12-10-2023 Note HNO ID: [id number] Author: GAGAN SCHUSTER RN Service: ? Author [...] seen in the Emergency Department (ED) Location: [place] Date: 12/06/23 Reason for ED Visit: wellness vs ED Intervention: Chest x ray done per daughter pt recently d/c from [facility] Still has her trach and peg Per daughter pt [facility] Is currently eating Cpap@ nite Per daughter,plan is to discontinue peg and trach soon Discussed f/u with pcp Based on district extension service agent, the following disposition is advised: No symptoms or symptoms present, not severe. Routed to: No Action Needed NIKA Education Provided this Outreach: No Gagan Schuster RN December 10, 2023 1:58 PM [facility] 12-10-2023 Note Patient Outreach ([facility] -------- LUIZA MAY ([id number]) 1955 F Date Time Provider Department 12/10/23 GAGAN SCHUSTERMaritza During your visit today, we recorded the [...] seen in the Emergency Department (ED) Location: [place] Date: 12/06/23 Reason for ED Visit: wellness vs ED Intervention: Chest x ray done per daughter pt recently d/c from [facility] Still has her trach and peg Per daughter pt receiving [facility] Is currently eating Cpap@ nite Per daughter,plan is to discontinue peg and trach soon Discussed f/u with pcp Based on district extension service agent, the following disposition is advised: No symptoms or symptoms present, not severe. Routed to: No Action Needed NIKA Education Provided this Outreach: Melanie Schuster RN December 10, 2023 1:58 PM Allergies As of Date: 12/10/2023 Noted Allergy Reaction ENTEX (PHENYLEPHRINE-GUAIFENESIN) 04/22/2005 5 - Intolerance TETANUS VACCINES AND TOXOID 04/22/2005 7 - Swelling Date Reviewed: 12/02/2023 Reviewed by: Steven Gillette LPN - Fully Assessed Reason for Visit: ACM DONOVAN RN [[id number]] Cmt: ER vs [place] on 12/06/23 Prescriptions [...] managed by this patient by: PATIENT Seth Chawla, [facility] Problem List As Of Date 12/10/2023 Noted [...] 08/10/2023 Hypokalemia [E (more content not included)... [facility] 12-09-2023 Telephone encounter Note Patient has [...] found Please advise. Thank you. Jackie Magaña. [facility] 12-07-2023 Telephone encounter Note Patient was seen in office 12/01 and refill of Ambien given at that time. Closing this encounter. WIL Meyer [facility] 12-07-2023 Miscellaneous Notes Patient was seen in [...] by a provider. Thank you Joan Johnson APRN.CLEAN UP WORKER Patient has been identified by name [...] you. May Menchaca. documented in this encounter [facility] 12-06-2023 Telephone encounter Note Called back to [facility]. Pt has appt with gen surg 12/24/23. No f/u that we can tell here for pulmonary. [facility] 12-06-2023 Miscellaneous Notes Called back to [facility]. Pt has appt with gen surg 12/24/23. No f/u that we can tell here for pulmonary. Okay Home Health orders, pending follow up with PCP team. 1)[facility] calling because they need verbal orders to see pt for nursing and they need verbal orders today or they will have to drop her. 2)need verbal orders or faxed orders [phone] for Trach size & G-tube care, water [...] she has been referred. Nemo RN with [facility] and reports they opened HH orders [...] She reports when Pt was discharged from [facility] she had been getting her Magnesium, Phos, [...] her outside medication list on 11/11/23 from [facility], but it is solution for the g-tube Sending updated medication list to fax # [phone]. documented in this encounter [facility] 12-06-2023 Telephone encounter Note Okay Home Health orders, pending follow up with PCP team. [facility] 12-06-2023 Telephone encounter Note 1)[facility] calling because they need verbal orders to see pt for nursing and they need verbal orders today or they will have to drop her. 2)need verbal orders or faxed orders [phone] for Trach size & G-tube care, water and flushes. See message below for all that is needed and other information. Routing to Dr. Herman who saw pt last. Provider/team is unavailable. Nava Connell LPN [facility] 12-03-2023 Telephone encounter Note Will Joan follow? T [facility] 12-03-2023 Telephone encounter Note Schedule follow up with Joan Johnson. She can sign orders for PCP. I saw patient for referrals to have tubes removed and she has been referred. T [facility] 12-03-2023 Telephone encounter Note Nemo RN with [facility] and reports they opened HH orders [...] She reports when Pt was discharged from [facility] she had been getting her Magnesium, Phos, [...] her outside medication list on 11/11/23 from [facility], but it is solution for the g-tube Sending updated medication list to fax # [phone]. [facility] 12-03-2023 Telephone encounter Note [facility] calling with questions regarding pt's medications. Questions answered. Gisell Mendoza RN [facility] 12-03-2023 Miscellaneous Notes [facility] calling with questions regarding pt's medications. Questions answered. Gisell Mendoza RN documented in this encounter [facility] 12-02-2023 Note HNO ID: [id number] Author: ISSA HERMAN MD Service: ? Author Type: Physician Type: Progress Notes Filed: 12/02/2023 15:09 Note Text: This note was created using Flightfoxriter. Subjective Patient presents with: Recheck: [facility] discharge, trach and GI tube, want them removed PCP Maryam Franco MD Luiza May is a 68 year old female here with her brother. History was complicated with admissions in [facility] [place], and recent discharge from [facility] (November 24). Discharge records from [facility] were not on file. Medications were reviewed with the patient. She mainly needed tracheostomy and G-tube removed. She reported eating regular food, and passing her swallowing tests. She was taking her medications orally. She reported dilantin was discontinued in the prison. She had her medications other than Ambien. She requested pain medication for the G tube. She was not on medication for abdominal pain in the prison. I explained I am not starting any [...] distress. Breath s (more content not included)... [facility] 12-02-2023 History of Present illness Narrative This note was created using Flightfoxriter. Subjective Patient presents with: Recheck: [facility] discharge, trach and GI tube, want them removed PCP Maryam Franco MD Luiza May is a 68 year old female here with her brother. History was complicated with admissions in [facility], [place], and recent discharge from [facility] (November 24). Discharge records from [facility] were not on file. Medications were reviewed with the patient. She mainly needed tracheostomy and G-tube removed. She reported eating regular food, and passing her swallowing tests. She was taking her medications orally. She reported dilantin was discontinued in the prison. She had her medications other than Ambien. She requested pain medication for the G tube. She was not on medication for abdominal pain in the prison. I explained I am not starting any [...] Issa Herman MD documented in this encounter [facility] 11-27-2023 Telephone encounter Note attempted to reach pt by phone without success. tried moblolie and home ph one and get a different person not pt. Tried daughter mobile phone and mailbox is full. Try pt later. Nava Connell LPN\ [facility] 11-26-2023 Telephone encounter Note Patient has been in hospital 4 times in the last 2 months for breathing issues, seizures, and various other problems. NO ambien until seen by a provider. Thank you Joan Johnson APRN.CLEAN UP WORKER [facility] 11-26-2023 Telephone encounter Note Patient has been [...] Please advise. Thank you. Irena Norton LPN. [facility] 11-26-2023 Telephone encounter Note Patient has been [...] primary care: 11/26/2023 Please advise. Thank you. Miranda Connell LPN. [facility] 11-26-2023 Miscellaneous Notes Patient has been identified [...] primary care: 11/26/2023 Please advise. Thank you. Miranda Connell LPN. [facility] asking for medication that is . documented in this encounter [facility] 11-26-2023 Telephone encounter Note Patient has been [...] 12/06/2023 Please advise. Thank you. May Menchaca. [facility] 11-26-2023 Telephone encounter Note [facility] asking for medication that is . [facility] 11-23-2023 Note HNO ID: [id number] Author: ROSALVA STODDARD MA Service: ? Author Type: Hydro Sprayer Operator Type: Progress Notes Filed: 11/23/2023 09:36 Note Text: POPULATION HEALTH NAVIGATION OUTREACH Action/FYI Contacted patient to schedule [facility] Annual Wellness Visit, care gaps and HCCs due. 1st attempt: Left message with my direct number 2nd attempt: Home number not in service Reason for Outreach Care Gap/HCC or Scheduling Wellness Visits Care Gaps due: Medicare Annual Wellness Visit Breast Cancer Screening Patient Contacted: Unable or unnecessary to reach patient: Left message [employer] message sent HCC related Navigation Signature: Rosalva Stoddard MA November 23, 2023 9:35 AM [facility] 11-23-2023 History of Present illness Narrative POPULATION HEALTH NAVIGATION OUTREACH Action/FYI Contacted patient to schedule [facility] Annual Wellness Visit, care gaps and HCCs due. 1st attempt: Left message with my direct number 2nd attempt: Home number not in service Reason for Outreach Care Gap/HCC or Scheduling Wellness Visits Care Gaps due: Medicare Annual Wellness Visit Breast Cancer Screening Patient Contacted: Unable or unnecessary to reach patient: Left message [employer] message sent HCC related Navigation Signature: Rosalva Stoddard MA November 23, 2023 9:35 AM documented in this encounter [facility] 11-23-2023 Note Patient Outreach (NE [facility]) -------- YADIRALUIZA ([id number]) 1955 F Date Time Provider Department 11/23/23 ROSALVA STODDARD During your visit today, we recorded the following information about you: Rosalva Stoddard MA 11/23/2023 9:36 AM Signed POPULATION HEALTH NAVIGATION OUTREACH Action/FYI Contacted patient to schedule [facility] Annual Wellness Visit, care gaps and HCCs due. 1st attempt: Left message with my direct number 2nd attempt: Home number not in service Reason for Outreach Care Gap/HCC or Scheduling Wellness Visits Care Gaps due: Medicare Annual Wellness Visit Breast Cancer Screening Patient Contacted: Unable or unnecessary to reach patient: Left message [employer] message sent HCC related Navigation Signature: Rosalva Stoddard MA November 23, 2023 9:35 AM Allergies As of Date: 11/23/2023 Noted Allergy Reaction ENTEX (PHENYLEPHRINE-GUAIFENESIN) 04/22/2005 5 - Intolerance TETANUS VACCINES AND TOXOID 04/22/2005 7 - Swelling Date Reviewed: 09/23/2023 Reviewed by: Lorraine Clement OCCA - Fully Assessed Reason for Visit: Population Health Navigation Outreach [3910] Cmt: Arnold AWV/HCC and care gaps Prescriptions as of [...] by this patient by: PATIENT Seth Chawla [facility] Problem List As Of Date 11/23/2023 Noted [...] Encounter Status:Closed by ROSALVA STODDARD on 11/23/23 [facility] 11-02-2023 Telephone encounter Note Patient has [...] Please advise. Thank you. Lisette Corona LPN. [facility] 11-02-2023 Miscellaneous Notes Patient has been identified [...] Lisette Corona LPN. documented in this encounter [facility] 10-19-2023 Note . MICRO - Microbiology PROCEDURE: [...] Locations *1: This test was performed at: [facility], [address] [place] [address], [id number] , [facility] ([place]) 10-12-2023 Note [facility] 10-12-2023 Hospital course Narrative Images from the original note were not included. Discharge Summary Hospitalist Discharge Summary Luiza May : 1955 Admit date: 09/26/2023 [...] She was transferred to the ICU at [facility]. Her stay was complicated by extubation and [...] normal. Judgment: Judgment normal. LABS: Recent Labs 10/10/2311110/11/2335610/12/23438 NA 142 143 142 K 3.7 3.5 3.5 CL 97* 100 99 CO2 35* 34* 35* BUN 33* 31* 30* CREATININE 0.55 0.55 0.58 GLUCOSE 103* 97 105* CALCIUM 9.8 9.1 9.8 Recent Labs 10/10/2311110/11/2335610/12/23438 WBC 9.5 11.2* 9.7 RBC 2.47* 2.47* [...] Complexity: follow up within 7-14 calendar days (75868) [x] Severe Complexity: follow up within 7 calendar days (15510) Follow up Testing, Pending results or Referrals [...] Crys Canseco DO Division of Hospitalist Medicine REHAPP [facility] 10/12/2023, 3:29 PM documented in this encounter [facility] 10-12-2023 History of Present illness Narrative 10/12/23 [...] original note were not included. OCCUPATIONAL THERAPY [facility] Treatment Note Name/MRN: Luiza May ([id number]) Date of : 1955 Age: 67 y.o. [facility] Discharge Recommendation: [...] Changes: 67-year-old female who was transferred from [facility] for acute on chronic hypoxemic and hypercapnic [...] at baseline. Routine labs: Recent Labs 10/10/23 01110/11/237 10/12/23 0439 WBC 9.5 11.2* 9.7 HGB [...] Routine trach care [place] to transfer to [facility] Images from the original note were not included. [facility] Wound Care Progress Note Luiza May AGE: [...] Seizure disorder on Dilantin was sent to [facility] from [facility] for management of Encephalopathy secondary to [...] ANGIOGRAM W AND/OR WO IV CONTRAST 07/26/[address] [facility] [address] IMAGING FAMILY HISTORY No family history [...] BC Assessment/Plan: Left forearm: Skin tear -leave CHECO Bilateral Buttock: MASD (d/t bodily fluids) - Apply ET mix. Leave CHECO. Apply TID and PRN. -q2hr/PRN turns Reposition q2hrs Incontinent check q2hrs Waffle cushion to chair Nutritional support Wound Care to follow Recommend to follow up at [facility] wound care center after hospital discharge. [...] Admit Date: 09/26/2023 PCP: Joy Stahl Room#: [id number] A BRIEF HOSPITAL COURSE: Mrs May is a 67yoF with hx of COPD on 4L baseline, TIO with CPAP, HFpEF, prior SDH 01/08/22 following a fall, prior MCA stroke with residual dysphagia, seizures, prior DVT- no OAC, HTN, HPL, Crest, anxiety, depression, alcohol abuse, and recent admit at [facility] after fall 08/05/23 with parafalcine SDH whom presented to [facility] on 09/25 with recurrent seizures and hypercapnia. Loaded with keppra and redosed with dilantin for seizures. She did not respond to use of NIV for hypercapnia (pH 7.1) and was intubated at [facility]. Transferred to ICU at [facility]. Her ICU stay complicated by MSSA PNA. [...] INTAKE/OUTPUT: Intake/Output Summary (Last 24 hours) at 10/11/2023 1737 Last data filed at 10/10/2023 2325 Gross per 24 hour Intake 400 ml Output -- Net 400 ml Past Medical History: Past Medical History: Diagnosis Date Asthma CAD (coronary artery disease) Cerebral artery occlusion with cerebral infarction (HCC) COPD (chronic obstructive pulmonary disease) (HCC) Hypertension LABS: CBC: Recent Labs 10/09/2342310/10/23 0112 10/11/23 0357 WBC 10.7 9.5 11.2* RBC 2.84* 2.47* 2.47* HGB 8.3* 7.3* 7.2* HCT 26.8* 23.1* 23.4* MCV 94.4 93.5 94.7 RDW 15.4* 15.1* 14.8 PLT 288 273 270 BMP: Recent Labs 10/09/2342310/10/23 0112 10/11/23 0357 NA [...] trach (#6 shishelley on 10/04/23), MSSA PNA, angely pleural effusions, [...] TBD - Location [facility] [place] - Pending the following - pending appeal Total time spent (which include face to face and non face to face encounters) : 38 minutes Extended Emergency Contact Information Primary Emergency Contact: AMEENA MAY Mobile Relation: Daughter Secondary Emergency Contact: Gene Mills Mobile Relation: Son Preferred language: Singaporean Hydrographic Surveyor needed? No Christophe Irwin DO Division of Hospitalist Medicine [facility] Nutrition Assessment Type and Reason for Visit: [...] (temporalis), Hand (interosseous) Fluid Accumulation: Mild Extremities Field Recorder Strength: Not Performed Nutrition Assessment: 67yo F with PMHx COPD on 4L baseline, TIO with CPAP, HFpEF, prior SDH 01/08/22 following a fall, prior MCA stroke with residual dysphagia, seizures, prior DVT- no OAC, HTN, HPL, Crest, anxiety, depression, alcohol abuse, and recent admit at [facility] after fall 08/05/23 with parafalcine SDH whom presented to [facility] on 09/25 with recurrent seizures and hypercapnia. Loaded with keppra and redosed with dilantin for seizures. She did not respond to use of NIV for hypercapnia (pH 7.1) and was intubated at [facility]. Transferred to ICU at [facility]. Her ICU stay complicated by MSSA PNA. [...] improved from the prior exam. TF restarted [address] visited pt this afternoon. Pt confirms she had abdominal pain yesterday and the TF was held, however she reports since re-starting the TF, her pain is tolerable. RD observed EN running of Vital 1.5 @ 35 mL/hr. Pt reports a UBW of 125# SENIOR APPLICATIONS ANALYST. Her weights continue to be above her UBW (had weights of 140# SENIOR APPLICATIONS ANALYST on 08/17 and 09/22) and her weights here have ranged from 150# to 170#. Estimated Daily Nutrient Needs: Energy Requirements Based On: Kcal/kg Weight Used for Energy Requirements: [place] Weight for Energy Calculation (kg): 50 kg Total Energy Requirements (kcals/day): 25-30 kcals/kg = 9884-8735 kcals/day Weight Used for Protein Requirements: [place] Weight in Kg Used for Protein Requirements: [...] 10/16/22 119#) % Weight Change (Calculated): 25.2 [place] Body Weight (lbs) (Calculated): 110 lbs [place] Body Weight (Kg) (Calculated): 50 kg % [place] Body Weight (Calculated): 142.3 % BMI (kg/m2) [...] Planning: Enteral Nutrition Joanie Lopez RD Contact: *[phone] 10/11/23 0849 Patient Parameters Ventilator On Yes [...] Changes: 67-year-old female who was transferred from [facility] for acute on chronic hypoxemic and hypercapnic respiratory failure related to seizures requiring intubation, has been treated for MSSA pneumonia but failed multiple extubation, now s/p trach/PEG/07/28. Reported feeling well this morning. Denied any shortness of breath, cough, secretions, fevers, chills. Stated that she follows with pulmonary In [place], has asthma and COPD, on Symbicort and [...] Affect: Mood normal. Routine labs: Recent Labs 10/09/2342310/10/2311110/11/23356 WBC 10.7 9.5 11.2* HGB 8.3* 7.3* 7.2* HCT 26.8* 23.1* 23.4* PLT 288 273 270 Recent Labs 10/09/2342310/10/2311110/11/23356 NA 145 142 143 [...] note please contact the signing physician directly. 10/11/23423 Wean Screen SpO2>/=88% Yes FiO2</=50% Yes PEEP </=8cmH2O Yes HR <140 BPM Yes RR </= 35 breaths/min Yes MAP >/= 65mmHg Yes Arterial pH >7.30 and <7.50 Yes Safety Screen Spontaneous Breathing Trial (SBT) Proceed with SBT - No exclusion criteria met Images from the original note were not included. Hospitalist Progress Note 10/10/2023 Subjective: Admit Date: 09/26/2023 PCP: Joy Stahl Room#: [id number] A BRIEF HOSPITAL COURSE: Mrs May is a 67yoF with hx of COPD on 4L baseline, TIO with CPAP, HFpEF, prior SDH 01/08/22 following a fall, prior MCA stroke with residual dysphagia, seizures, prior DVT- no OAC, HTN, HPL, Crest, anxiety, depression, alcohol abuse, and recent admit at [facility] after fall 08/05/23 with parafalcine SDH whom presented to [facility] on 09/25 with recurrent seizures and hypercapnia. Loaded with keppra and redosed with dilantin for seizures. She did not respond to use of NIV for hypercapnia (pH 7.1) and was intubated at [facility]. Transferred to ICU at [facility]. Her ICU stay complicated by MSSA PNA. [...] Hypertension LABS: CBC: Recent Labs 10/08/23 0202 10/09/23 42310/10/23 0112 WBC 9.2 10.7 9.5 RBC 2.59* 2.84* 2.47* HGB 7.6* 8.3* 7.3* HCT 24.4* 26.8* 23.1* MCV 94.2 94.4 93.5 RDW 15.1* 15.4* 15.1* PLT 244 288 273 BMP: Recent Labs 10/08/23 0202 10/09/2342310/10/23111 NA 143 145 142 K 3.3* 4.2 [...] TBD - Location - [facility] [place] - Pending the following - pending appeal Total time spent (which include face to face and non face to face encounters) : 38 minutes Extended Emergency Contact Information Primary Emergency Contact: AMEENA MAY Mobile Relation: Daughter Secondary Emergency Contact: Kendra Millsck Mobile Relation: Son Preferred language: Singaporean Hydrographic Surveyor needed? No Christophe Irwin DO Division of Hospitalist Medicine Acute [facility] Images from the original note were not included. [facility] Pulmonary Medicine [address] [place] [address] Patient - Luiza May, Age - 67 y.o. - 1955 Room Number - [id number] A Consulting - Christophe Irwin DO Primary Care Physician - Joy Zeketrevor Date of Admission - 09/26/2023 2:17 PM Hospital Day - 14 Chief Complaint: unable to obtain Luiza May is a 67 y.o. female who pulmonary is following for acute on chronic hypoxemic/hypercarbic respiratory failure, s/p Shiley #6 tracheostomy 10/04/23, previously on 4 LPM baseline O2 Interval History Patient was admitted to [facility] ICU [facility] [...] Ford MD Pulmonary & Critical Care Medicine [facility] Images from the original note were not included. Hospitalist Progress Note 10/09/2023 Subjective: Admit Date: 09/26/2023 PCP: Joy Stahl Room#: [id number] A BRIEF HOSPITAL COURSE: Mrs May is a 67yoF with hx of COPD on 4L baseline, TIO with CPAP, HFpEF, prior SDH 01/08/22 following a fall, prior MCA stroke with residual dysphagia, seizures, prior DVT- no OAC, HTN, HPL, Crest, anxiety, depression, alcohol abuse, and recent admit at [facility] after fall 08/05/23 with parafalcine SDH whom presented to [facility] on 09/25 with recurrent seizures and hypercapnia. Loaded with keppra and redosed with dilantin for seizures. She did not respond to use of NIV for hypercapnia (pH 7.1) and was intubated at [facility]. Transferred to ICU at [facility]. Her ICU stay complicated by MSSA PNA. [...] disease) Cerebral artery occlusion with cerebral infarction ([facility]) COPD (chronic obstructive pulmonary disease) ([facility]) Hypertension LABS: CBC: Recent Labs 10/07/2334610/07/23 0558 10/07/23 1651 10/08/23 0202 10/09/23 0424 [...] Gene Mills Mobile Relation: Son Preferred language: Singaporean Hydrographic Surveyor needed? No Christophe Irwin DO Division of Hospitalist Medicine [facility] Removed patients urethral catheter per protocol. Patient educated on need for PVR bladder scans. Images from the original note were not included. Hospitalist Progress Note 10/08/2023 Subjective: Admit Date: 09/26/2023 PCP: Joy Stahl Room#: [id number] A BRIEF HOSPITAL COURSE: Mrs May is a 67yoF with hx of COPD on 4L baseline, TIO with CPAP, HFpEF, prior SDH 01/08/22 following a fall, prior MCA stroke with residual dysphagia, seizures, prior DVT- no OAC, HTN, HPL, Crest, anxiety, depression, alcohol abuse, and recent admit at [facility] after fall 08/05/23 with parafalcine SDH whom presented to [facility] on 09/25 with recurrent seizures and hypercapnia. Loaded with keppra and redosed with dilantin for seizures. She did not respond to use of NIV for hypercapnia (pH 7.1) and was intubated at [facility]. Transferred to ICU at [facility]. Her ICU stay complicated by MSSA PNA. [...] Intake/Output Summary (Last 24 hours) at 10/08/2023 1633 Last data filed at 10/07/20231999 Gross per 24 hour Intake 554.17 ml Output 215 ml Net 339.17 ml Past Medical History: Past Medical History: Diagnosis Date Asthma CAD (coronary artery disease) Cerebral artery occlusion with cerebral infarction (HCC) COPD (chronic obstructive pulmonary disease) ([facility]) Hypertension LABS: CBC: Recent Labs 10/06/23 0010 [...] Gene Mills Mobile Relation: Son Preferred language: Singaporean Hydrographic Surveyor needed? No Christophe Irwin DO Division of Hospitalist Medicine Acute care [facility] Images from the original note were not included. OCCUPATIONAL THERAPY [facility] Treatment Note Name/MRN: Luiza May ([id number]) Date of : 1955 Age: 67 y.o. Room/Bed: W7-734/[id number] A Discharge Recommendation: IP REHAB Equipment Needed: [...] Minutes: 32 Minutes (1-ADL; 1- FUNCT ACT) EILEEN Frias Images from the original note were not included. PHYSICAL THERAPY [facility] Treatment Note Name/MRN: Luiza May ([id number]) Date of : 1955 Age: 67 y.o. Room/Bed: [facility] A Discharge Recommendation: [...] Objective Ambulation Ambulation 1 Assistive device(s) used: BAND CUTTING MACHINE OPERATOR Assist level: Min Assist, x2 Person Assist Distance (ft): 4ft x2 bed><BSC Quality of gait: uneven step length, narrow JAMIE, slow jenny, postural sway Ambulation 2 Assistive device(s) used: BAND CUTTING MACHINE OPERATOR Assist level: Min Assist, x2 Person Assist Distance (ft): 6 lateral side steps x 4 reps Quality of gait: uneven step length, narrow JAMIE, slow jenny, postural sway Transfers/Mobility Sit to stand: Min [...] able to progress to SBA. Standing with BAND CUTTING MACHINE OPERATOR, narrow JAMIE, postural sway, min assist x2 for balance; dynamic standing with BAND CUTTING MACHINE OPERATOR, mini marches 2 x 10 reps and [...] from the original note were not included. [facility] Wound Care Progress Note Luiza May AGE: [...] Seizure disorder on Dilantin was sent to [facility] from [facility] for management of Encephalopathy secondary to [...] ANGIOGRAM W AND/OR WO IV CONTRAST 07/26/[address] [facility] [address] IMAGING FAMILY HISTORY No family history [...] respiratory distress , trached Left forearm: 1.0cmx2.5cmx0.1cm. [place] tissue noted. Scant serosang drainage. Periwound fragile [...] CHECO. Apply TID and PRN. -q2hr/PRN turns No wounds to left heel Reposition q2hrs Incontinent check q2hrs Waffle cushion to chair Nutritional support Wound Care to follow Recommend to follow up at [facility] wound care center after hospital discharge. [...] my own independent evaluation of this patient. [facility] ADMISSION MEDICATION RECONCILIATION Date: 10/08/23 Room:[facility] A Patient Name: Luiza May Allergies: Tetanus toxoid Age: 67 y.o. Sex: female Note: New information has been obtained regarding the patient s medications. The medication reconciliation has been updated to reflect this. Please consider making these changes/additions if appropriate: Recommendations: *FYI* - called patient's son Gene to attempt to go over home meds, but he didn't know them. He advised me to call patient's SO, but no phone number in chart and no family at bedside. Thus, updated home med list based on last fill dates from [facility]. UNABLE to verify OTC med fills, so [...] recently filled. If patient to take @ [facility], please write Rx's: Budesonide 0.5mg/2mL qam (UNABLE [...] original note were not included. OCCUPATIONAL THERAPY [facility] Name/MRN: Luiza May ([id number]) Date: 10/08/2023 Pt reviewed, goals and POC remain appropriate, no re-eval required. Lu Magallanes OT Images from the original note were not included. [facility] Pulmonary Medicine [address] [place] [address] Patient - Luiza May, Age - 67 [...] O2 Interval History Patient was admitted to [facility] ICU [facility] [...] Ford MD Pulmonary & Critical Care Medicine [facility] ICU interval note; Peer to Peer completed [...] original note were not included. PHYSICAL THERAPY [facility] Name/MRN: Luiza May ([id number]) Date: 10/07/2023 PT treatment attempted x2. Pt declined in the am because family members were visiting. Declined in the afternoon because of being kept up most of the night and wanting a nap. Educated on importance of PT and pt stated she would work with therapy tomorrow. Will re-attempt as able. Kailee Wagner PT OCCUPATIONAL THERAPY Attempted OT services however due to recent trach/PEG placement referred POC to OTR for possible re evaluation. Will continue to monitor for continued OT treatment. Images from the original note were not included. [facility] Wound Care Progress Note Luiza May AGE: 67 y.o. GENDER: female : 1955 Subjective: HISTORY of PRESENT ILLNESS HPI Luiza aMy is a 67 y.o. female who presents [...] Seizure disorder on Dilantin was sent to [facility] from [facility] for management of Encephalopathy secondary to [...] ANGIOGRAM W AND/OR WO IV CONTRAST 07/26/[address] [facility] [address] IMAGING FAMILY HISTORY No family history [...] no respiratory distress , Left forearm: 1.0cmx2.5cmx0.1cm. [place] tissue noted. Scant serosang drainage. Periwound fragile [...] to follow Recommend to follow up at [facility] wound care center after hospital discharge. [...] depression, alcohol abuse, and recent admit at [facility] after fall 08/05/23 with parafalcine SDH whom presented to [facility] on 09/25 with recurrent seizures and hypercapnia. Loaded with keppra and redosed with dilantin for seizures. She did not respond to use of NIV for hypercapnia (pH 7.1) and was intubated at [facility]. Transferred to ICU at [facility]. Her ICU stay complicated by MSSA PNA. [...] (99.1 F) (10/07/23 1227) Pulse 99 (10/07/23 122) Resp 21 (10/07/231226) SpO2 94 % (10/07/231226) Weight 71.3 kg (157 lb 3 oz) (10/07/23 0554) BMI Body mass index is 28.74 kg/m . I/O: 10/05 699 - 10/06 658 In: 1876 [I.V.:269] Out: 3340 [Urine:3340] Ventilator: [...] Normal [] Scar/Lesion/Mass Inspection of teeth/lips/gums Dentition: [x][place] Teeth []Dentures Lips/Gums: [x]Intact []Lesion Present Mucosa: [x][place] [x]Moist []Dry Neck: External Appearance Overall Appearance: [...] within last 24 hours- BMP: Recent Labs 10/05/2361610/06/230 10/07/23346 NA 142 145 144 K 3.2* 3.9 3.4* CL 102 102 97* CO2 33* 32* 36* BUN 15 18* 21* CREATININE 0.59 0.61 0.53 CALCIUM 8.9 9.0 9.5 MG 1.6 1.6 1.6 PHOS 2.7 4.0 3.4 LFTs:No results for input(s): AST , ALT , PROT , ALBUMIN , BILITOT , BILIRUBINU , ALKPHOS , LIPASE in the last 72 hours. Glucose: Recent Labs 10/05/23 0610/06/23 0010 10/07/23 0347 GLUCOSE 115* 137* 112* Procal: No results for input(s): PROCAL in the last 72 hours. CBC: Recent Labs 10/05/23 0610/05/23 1102 10/06/23 0010 10/06/23 0343 10/07/23 0347 10/07/23 0558 WBC 5.3 -- 10.0 -- 7.1 -- HGB 6.0* 7.2* 7.6* 8.0 7.1* 8.2 HCT 19.3* 22.6* 24.1* -- 22.6* -- PLT 183 -- 237 -- 204 -- MCV 91.9 -- 91.6 -- 93.0 -- RDW 14.3 -- 14.7 -- 15.1* -- ABGs: Recent Labs 10/05/23 0343 10/06/23 0343 10/07/23 0558 PHART 7.459* 7.362 -- [id number] 45.7* 60.6* -- PO2ART 117.0* 361.3* -- [id number] 31.7* 33.6* -- [id number] 40% Oxygen Vent Vent Lactic Acid: Recent Labs 10/05/23 0617 [...] trach (#6 shiley on 10/04/23), MSSA PNA, angeyl pleural effusions, Hx COPD Breakthrough GTC seizure, [...] original note were not included. PHYSICAL THERAPY [facility] Re-Evaluation Name/MRN: Luiza May ([id number]) Evaluation Date: 10/06/2023 Date of : 1955 [...] Cerebral artery occlusion with cerebral infarction (CMS/HCC) ([facility]) COPD (chronic obstructive pulmonary disease) ([facility]) Hypertension Past Surgical History: Past Surgical History: Procedure Laterality Date APPENDECTOMY CHOLECYSTECTOMY COLONOSCOPY COLONOSCOPY CT CHEST ANGIOGRAM W AND/OR WO IV CONTRAST 07/26/2022 CT CHEST ANGIOGRAM W AND/OR WO IV CONTRAST 07/26/[address] [facility] [address] IMAGING Admission Diagnosis: Patient Active Problem List Diagnosis Date Noted Seizure (HCC) 09/26/2023 Severe malnutrition (CMS/HCC) (HCC) 07/26/2022 COPD exacerbation (HCC) 07/25/2022 Acute respiratory failure with hypoxia and hypercapnia (HCC) 09/26/2023 Hemorrhage of gastrointestinal tract 04/17/2017 Cerebrovascular accident (CVA) due to embolism of cerebral artery (HCC) 02/12/2017 Acute deep vein thrombosis (DVT) of distal vein of right lower extremity (HCC) 02/12/2017 Encephalopathy 02/12/2017 Posterior reversible encephalopathy syndrome (PRES) 02/12/2017 Alcohol abuse 02/10/2017 NSTEMI (non-ST elevated myocardial infarction) ([facility]) 02/10/2017 History of hematemesis 02/10/2017 Medical Precautions: [...] Responsibilities: Independent Receives Help From: Family Active Varying Exceptionalities Teacher: Yes Prior Level of Function ADL Assistance: [...] chair Quality of gait: antalgic, shuffling, slow jenny Sensation: WFL Outcome Measures AM-PAC How much [...] Raw Score (No Stairs) : 13 JH-HLM -HLM Score: Static standing (1 or more minutes) [...] of Care supervision is transferred to a [facility] Physical Therapist. Goals and/or treatment plan was established in collaboration with patient/family/other representatives. Images from the original note were not included. [facility] Wound Care Progress Note Luiza May AGE: [...] Seizure disorder on Dilantin was sent to [facility] from [facility] for management of Encephalopathy secondary to [...] ANGIOGRAM W AND/OR WO IV CONTRAST 07/26/[address] [facility] [address] IMAGING FAMILY HISTORY No family history [...] , intubated via trach Left forearm: 1.0cmx2.5cmx0.1cm. [place] tissue noted. Scant serosang drainage. Periwound fragile [...] to follow Recommend to follow up at [facility] wound care center after hospital discharge. [...] of this patient. ICU Progress Note Name: uLiza May : 1955(67 y.o.) Date: 10/06/23 Team: [...] alcohol abuse. Pt with recent admission at [facility] after unwitnessed fall 08/05/2023 resulting in parafalcine [...] was intubated and transferred and admitted to [facility] ICU on 09/25. -09/26: +MSSA on PNA [...] 5 mg, Oral, Daily propofol, 5-50 mcg/kg/min ([place]), IntraVENous, Once artificial tears, 1 drop, Both Eyes, Daily QUEtiapine, 100 mg, Oral, Nightly QUEtiapine, 50 mg, Oral, Daily Senna, 10 mL, Oral, BID stomahesive in petrolatum, , Topical, q8h thiamine (Vitamin B1) 100 mg in sodium chloride 0.9 % 100 mL IVPB, 100 mg, IntraVENous, q24h Continuous Infusions:dexmedeTOMIDine, 0.1-0.6 mcg/kg/hr, Last Rate: 0.6 mcg/kg/hr (10/06/23456) Objective: Last Vitals: BP MAP 114/67 (10/06/23 0500) 81 (10/06/23 050) Arterial BP MAP Temp 37.6 C (99.7 [...] Normal [] Scar/Lesion/Mass Inspection of teeth/lips/gums Dentition: [x][place] Teeth []Dentures Lips/Gums: []Intact []Lesion Present Mucosa: [][place] []Moist []Dry Neck: External Appearance Overall Appearance: [...] this interval not displayed. ABGs: Recent Labs 10/04/23 0343 10/05/23 0343 10/06/23 0343 PHART 7.391 7.459* 7.362 HXA6DOM 48.0* 45.7* 60.6* PO2ART 164.0* 117.0* 361.3* [id number] 28.5* 31.7* 33.6* [id number] 50% Oxygen 40% Oxygen Vent Lactic Acid: [...] through a skull defect) superimposed on a [id number]-kx-twwfzc global encephalopathy. CTA Chest 09/26: IMPRESSION: Minimal [...] bowel loops appear to be colonic and [place]'s is a consideration. Follow-up recommended. CT abd/pelvis [...] following, seen earlier in stay. Updated daughter Ameean via phone. TCC aiding in placement GI Prophylaxis: Pantoprazole IV DVT Prophylaxis: Lovenox 40 q 24hr - creatinine clearance >30 Disposition: Remain in ICU. If no other issues arise with Trach/Vts/desaturations could consider transferring to tomorrow as today is 48hrs post new [...] (temporalis), Hand (interosseous) Fluid Accumulation: Mild Extremities Field Recorder Strength: Not Performed Nutrition Assessment: Pt is [...] seizure disorder on Dilantin who presents from [facility] for management of encephalopathy d/t acute on chronic hypoxic hypercapnic respiratory failure and an apparent break-through seizure. Wound Care consulted for left heel, left forearm and lip. Pt continues on vent. She is s/p trach/PEG yesterday 10/04/23. Vital 1.5 @ 35 mls/hour. Estimated Daily Nutrient Needs: Energy Requirements Based On: Kcal/kg Weight Used for Energy Requirements: [place] Weight for Energy Calculation (kg): 50 kg Total Energy Requirements (kcals/day): 25-30 kcals/kg = 9942-6609 kcals/day Weight Used for Protein Requirements: [place] Weight in Kg Used for Protein Requirements: [...] Weight: 72.2 kg (159 lb 2.8 oz) [place] Body Weight (lbs) (Calculated): 110 lbs [place] Body Weight (Kg) (Calculated): 50 kg % [place] Body Weight (Calculated): 155.1 % BMI (kg/m2) [...] Planning: Too soon to determine Jamila Wiley RD,LD,[facility] Contact: *[phone] or [employer] Images from the original note were [...] - Per ICU: levetiracetam HX CVA/SDH - 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 They currently have no uncontrolled symptoms and have established goals of care and we have signed off of their case. The patient has established follow-up with [facility] . Total of 40 minutes spent on [...] level, hypercarbic requiring intubation and transfer to [facility] ICU level of care. Was successfully extubated [...] other systems were reviewed and are negative. [place] Symptom Assessment Score [place] Score Pain Score 0 Tiredness Score 5 [...] patient hospice appropriate? TBD Spiritual Care Note [facility] Palliative Care Patient Name:Luiza May Chief Complaint: [...] from the original note were not included. [facility] Wound Care Progress Note Luiza May AGE: [...] Seizure disorder on Dilantin was sent to [facility] from [facility] for management of Encephalopathy secondary to [...] ANGIOGRAM W AND/OR WO IV CONTRAST 07/26/[address] [facility] [address] IMAGING FAMILY HISTORY No family history [...] No drainage. Periwound fragile Left forearm: 1.0cmx2.5cmx0.1cm. [place] tissue noted. Scant serosang drainage. Periwound fragile [...] bodily fluids) - Apply ET mix. Leave SUPPORT ANALYST. Apply TID and PRN. No wounds to left heel Nutritional support Wound Care to follow Recommend to follow up at [facility] wound care center after hospital discharge. [...] alcohol abuse. Pt with recent admission at [facility] after unwitnessed fall 08/05/2023 resulting in parafalcine [...] was intubated and transferred and admitted to [facility] ICU on 09/25. -09/26: +MSSA on PNA [...] 0.9 % 250 mL infusion, 0.05-2 mg/kg/hr ([place]), Last Rate: Stopped (10/05/23 1030) norepinephrine, 1-100 [...] index is 31.2 kg/m . I/O: 10/03 0700 - 10/04 0659 In: 3231.7 [I.V.:2841.7] Out: 3760 [Urine:3750] NET [...] Normal [] Scar/Lesion/Mass Inspection of teeth/lips/gums Dentition: [x]Rappahann[place] Teeth []Dentures Lips/Gums: []Intact []Lesion Present Mucosa: [][place] []Moist []Dry Neck: External Appearance Overall Appearance: [...] within last 24 hours- BMP: Recent Labs 10/03/23 0424 10/04/23 0427 10/05/23 [...] the last 72 hours. Glucose: Recent Labs 10/03/23 0424 10/04/23 0427 10/05/23 0617 GLUCOSE 109* 102* 115* Procal: No results for input(s): PROCAL in the last 72 hours. CBC: Recent Labs 10/03/23 0424 10/03/23 0937 10/04/23 0427 10/04/23 0829 10/05/23 0343 [...] 0343 10/05/23 0343 PHART 7.305* 7.391 7.459* IFI5OWV 57.0* 48.0* 45.7* PO2ART 98.9 164.0* 117.0* [id number] 27.7* 28.5* 31.7* [id number] Vent 50% Oxygen 40% Oxygen Lactic Acid: [...] through a skull defect) superimposed on a qhymgivx-il-tovdct global encephalopathy. CTA Chest 09/26: IMPRESSION: Minimal [...] trach (#6 shiley on 10/04/23), MSSA PNA, Hx COPD Breakthrough [...] or gross discoloration LABS CBC: Recent Labs 10/03/23 0424 10/03/23 0937 10/04/23 0427 10/04/23 0829 10/05/23 0343 10/05/23 0617 WBC 10.7 -- 8.2 -- -- 5.3 HGB 7.3* < > 6.9* 7.2* 7.5 6.0* HCT 23.7* -- 22.0* 22.8* -- 19.3* PLT 224 -- 219 -- -- 183 < > = values in this interval not displayed. BMP: Recent Labs 10/03/23 04210/04/23 0427 10/05/23 0617 NA 142 140 142 [...] 0.9 % 250 mL infusion, 0.05-2 mg/kg/hr ([place]), Last Rate: 0.6 mg/kg/hr (10/05/23 0220) norepinephrine, 1-100 mcg/min PRN Meds:PRN medications: acetaminophen, [...] Sutton MD General Surgery PGY-3 Pager # [phone] Associated attestation - Seth Muller MD - [...] Surgery Division of Trauma Department of Surgery [facility] P Spiritual Care Note [facility] Palliative Care Patient Name:Luiza May Chief Complaint: [...] daily. Debriefed: with patients nurse. Anurag Coburn 10/04/23 Please see full details from [...] Surgery Division of Trauma Department of Surgery [facility] P Images from the original note were not included. PHYSICAL THERAPY [facility] Name/MRN: Luiza May ([id number]) Date: 10/04/2023 PT held. Patient re-intubated 10/03/23. [...] alcohol abuse. Pt with recent admission at [facility] after unwitnessed fall 08/05/2023 resulting in parafalcine [...] was intubated and transferred and admitted to [facility] ICU on 09/25. -09/26: +MSSA on PNA [...] 0.9 % 250 mL infusion, 0.05-2 mg/kg/hr ([place]), Last Rate: 0.55 mg/kg/hr (10/04/23622) norepinephrine, 1-100 mcg/min, Last Rate: 3 mcg/min (10/04/23101) Objective: Last Vitals: BP MAP 143/83 (10/04/23729) 96 (10/04/23729) Arterial BP MAP Temp 37.5 C (99.5 F) (10/04/23729) Pulse 80 (10/04/23729) Resp 21 (10/04/23729) SpO2 100 % (10/04/23729) Weight 77.4 kg (170 lb 10.2 oz) (04/01/24 0600) BMI Body mass index is 31.2 kg/m . I/O: 10/02 0700 - 10/03 0559 In: 1214.4 [I.V.:1129.4] Out: 1030 [Urine:1030] NET [...] Normal [] Scar/Lesion/Mass Inspection of teeth/lips/gums Dentition: [x][place] Teeth []Dentures Lips/Gums: []Intact []Lesion Present Mucosa: [][place] []Moist []Dry Neck: External Appearance Overall Appearance: [...] Labs 10/02/23441 PROCAL 0.09 CBC: Recent Labs 10/02/2344110/02/23 2105 10/03/2342310/03/2393610/03/23110610/04/2334210/04/23426 WBC 10.8* -- 10.7 -- -- -- 8.2 HGB 7.7* < > 7.3* < > 7.8 7.7 6.9* HCT 25.4* -- 23.7* -- -- -- 22.0* PLT 178 -- 224 -- -- -- 219 MCV 93.0 -- 93.3 -- -- -- 92.4 RDW 14.5 -- 14.3 -- -- -- 14.4 < > = values in this interval not displayed. ABGs: Recent Labs 10/03/2393610/03/23110610/04/23342 PHART 7.203* 7.305* 7.391 UNE3SZG 74.5* 57.0* 48.0* PO2ART 88.2 98.9 164.0* [id number] 28.7* 27.7* 28.5* [id number] 40% Oxygen Vent 50% Oxygen Lactic Acid: [...] through a skull defect) superimposed on a grurutgd-cn-dsdbgx global encephalopathy. CTA Chest 09/26: IMPRESSION: Minimal [...] change to taper). Last day for cefazolin D#7/. Repeat PNA pcr and resp cx from [...] 137 --> was intubated and transferred to [facility] ICU. 09/27: Extubated overnight. Required re-intubation that [...] resulting in subdural hematoma - admitted to [facility]. Aspirin WV'ED at that time. Has not followed up [...] 0.9 % 250 mL infusion, 0.05-2 mg/kg/hr ([place]), Last Rate: 0.55 mg/kg/hr (10/03/23 1255) norepinephrine, [...] Normal [] Scar/Lesion/Mass Inspection of teeth/lips/gums Dentition: [x][place]app[place] Teeth []Dentures Lips/Gums: [x]Intact []Lesion Present Mucosa: [x][place] []Moist [x]Dry Neck: External Appearance Overall Appearance: [...] within last 24 hours- BMP: Recent Labs 10/01/23 0358 10/02/23 0442 10/03/23 0424 NA 143 143 142 K 3.5 3.3* 3.9 CL 105 104 106 CO2 30 29 30 BUN 14 16 17 CREATININE 0.51* 0.64 0.48* CALCIUM 9.2 9.3 9.1 MG 1.9 2.0 1.9 PHOS 3.0 3.4 3.5 LFTs: Recent Labs 10/01/23 035 AST 31 ALT 19 PROT 7.0 ALBUMIN 4.5 BILITOT 0.3 ALKPHOS 78 Glucose: Recent Labs 10/01/23 0358 10/02/23 0442 10/03/23 042 GLUCOSE 149* 104* 109* Procal: Recent Labs 10/02/23441 PROCAL 0.09 CBC: Recent Labs 10/01/23 0358 10/02/23 0442 10/02/23 2105 10/03/23 0424 10/03/23 0937 10/03/23 1107 [...] 0937 10/03/23 1107 PHART 7.304* 7.203* 7.305* [id number] 57.5* 74.5* 57.0* PO2ART 92.6 88.2 98.9 QWK8ILA 27.9* 28.7* 27.7* [id number] Bi-PAP 40% Oxygen Vent Lactic Acid: No [...] following. Increased bowel regimen. 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 Hx bilateral ischemic stroke (?[id number]) Hx recent subdural after fall (08/2023) Hx [...] 137 --> was intubated and transferred to [facility] ICU. 09/27: Extubated overnight. Required re-intubation that [...] resulting in subdural hematoma - admitted to [facility]. Aspirin DC'ED at that time. Has not followed up [...] Normal [] Scar/Lesion/Mass Inspection of teeth/lips/gums Dentition: [x][place] Teeth []Dentures Lips/Gums: [x]Intact []Lesion Present Mucosa: [x][place] []Moist [x]Dry Neck: External Appearance Overall Appearance: [...] within last 24 hours- BMP: Recent Labs 09/30/23 0247 10/01/23 0358 10/02/23 0442 NA 142 143 143 K 3.1* 3.5 3.3* CL 100 105 104 CO2 30 30 29 BUN 13 14 16 CREATININE 0.55 0.51* 0.64 CALCIUM 9.4 9.2 9.3 MG 2.0 1.9 2.0 PHOS 1.5* 3.0 3.4 LFTs: Recent Labs 10/01/23357 AST 31 ALT 19 PROT 7.0 ALBUMIN 4.5 BILITOT 0.3 ALKPHOS 78 Glucose: Recent Labs 09/30/23 0247 10/01/23 0358 10/02/23 0442 GLUCOSE 169* 149* 104* Procal: Recent Labs 09/30/23 0247 09/30/23 0725 10/02/23 0442 PROCAL 0.08 0.08 0.09 CBC: Recent Labs 09/30/23 02409/30/23 03110/01/23 03510/02/23 0442 WBC 11.4* -- 7.4 10.8* HGB 7.9* 8.7 7.6* 7.7* HCT 24.9* -- 24.7* 25.4* PLT 146 -- 153 178 MCV 90.2 -- 92.2 93.0 RDW 13.8 -- 14.6 14.5 ABGs: Recent Labs 09/30/23 031 [id number] Vent Lactic Acid: Recent Labs 09/30/23246 LACTATE 0.8 INR: No results for input(s): [...] following. Increased bowel regimen. 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 Hx bilateral ischemic stroke (?[id number]) Hx recent subdural after fall (08/2023) Hx [...] from last 7 days Lab Units 10/02/2344110/01/2335709/30/23 03109/30/23 0247 WBC AUTO 10*3/uL 10.8* 7.4 -- 11.4* HEMOGLOBIN g/dL 7.7* 7.6* -- 7.9* HEMOGLOBIN BG g/dl -- -- 8.7 -- HEMATOCRIT % 25.4* 24.7* -- 24.9* PLATELETS AUTO 10*3/uL 178 153 -- 146 Results from last 7 days Lab Units 10/02/2344110/01/238 09/30/23 0247 SODIUM mmol/L 143 143 142 POTASSIUM [...] Results from last 7 days Lab Units 10/02/23 0442 10/01/23 0358 09/30/23 0247 MAGNESIUM mg/dL 2.0 1.9 [...] Surgery PGY-5 10/02/23 10:23 AM Pager # [phone] Associated attestation - Malvin Bojorquez MD - [...] results, and face to face with Luiza Vesna Yadira discussing the diagnosis and importance of compliance [...] Surgery Division of Trauma Department of Surgery [facility] 10/02/23 0831 Patient Parameters Ventilator [...] 137 --> was intubated and transferred to [facility] ICU. 09/27: Extubated overnight. Required re-intubation that afternoon d/t hypoxia/increased WOB after getting up to BSC, desat ~65%, improved with BVM - eyes deviated to R -?seizure. Difficult to ventilate, started on versed gtt with improvement. 09/28: requiring ketamine/versed/precedex and still intermittently agitated. 09/29: only requiring ketamine. Passing SBT. Recent unwitnessed fall 08/05/2023 resulting in subdural hematoma - admitted to [facility]. Has not followed [facility] [...] 0.9 % 250 mL infusion, 0.05-2 mg/kg/hr ([place]), Last Rate: 0.8 mg/kg/hr (10/01/23 0119) norepinephrine, [...] Normal [] Scar/Lesion/Mass Inspection of teeth/lips/gums Dentition: [x]Rapp[place] Teeth []Dentures Lips/Gums: [x]Intact []Lesion Present Mucosa: [x][place] []Moist [x]Dry Neck: External Appearance Overall Appearance: [...] within last 24 hours- BMP: Recent Labs 09/29/23 0558 09/30/23 0247 10/01/23 0358 NA 138 142 143 K 3.2* 3.1* 3.5 CL 100 100 105 CO2 30 30 30 BUN 11 13 14 CREATININE 0.45* 0.55 0.51* CALCIUM 8.6 9.4 9.2 MG 1.6 2.0 1.9 PHOS 3.4 1.5* 3.0 LFTs: Recent Labs 10/01/23 0358 AST 31 ALT 19 PROT 7.0 ALBUMIN 4.5 BILITOT 0.3 ALKPHOS 78 Glucose: Recent Labs 09/29/23 0558 09/30/23 02410/01/23 035 GLUCOSE 128* 169* 149* Procal: Recent Labs 09/30/23 02409/30/23 0725 PROCAL 0.08 0.08 CBC: Recent Labs 09/29/23 0558 09/29/23 1000 09/30/23 0247 09/30/23 03110/01/23 035 WBC 8.4 -- 11.4* -- 7.4 HGB 8.2* < > 7.9* 8.7 7.6* HCT 25.8* -- 24.9* -- 24.7* PLT 102* -- 146 -- 153 MCV 90.5 -- 90.2 -- 92.2 RDW 13.7 -- 13.8 -- 14.6 < > = values in this interval not displayed. ABGs: Recent Labs 09/28/23 1731 09/29/23 1000 09/30/23 031 PHART 7.386 -- -- [id number] 44.0 -- -- PO2ART 162.5* -- -- OEN4LWY 25.8* -- -- [id number] 60% Oxygen 50% Oxygen Vent Lactic Acid: Recent Labs 09/30/23246 LACTATE 0.8 INR: No results for input(s): [...] yesterday with no success. 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 Hx bilateral ischemic stroke (?[id number]) Hx recent subdural after fall (08/2023) Hx [...] and physicians, excluding procedures. Spiritual Care Note [facility] Palliative Care Patient Name:Luiza May Chief Complaint: [...] original note were not included. PHYSICAL THERAPY [facility] Initial Evaluation Name/MRN: Luiza May ([id number]) Evaluation Date: 10/01/2023 Date of : 1955 [...] disease) Cerebral artery occlusion with cerebral infarction ([facility]) ([facility]) COPD (chronic obstructive pulmonary disease) ([facility]) Hypertension Past Surgical History: Past Surgical History: Procedure Laterality Date APPENDECTOMY CHOLECYSTECTOMY COLONOSCOPY COLONOSCOPY CT CHEST ANGIOGRAM W AND/OR WO IV CONTRAST 07/26/2022 CT CHEST ANGIOGRAM W AND/OR WO IV CONTRAST 07/26/[address] [facility] [address] IMAGING Admission Diagnosis: Patient Active Problem List Diagnosis Date Noted Seizure ([facility]) 09/26/2023 Severe malnutrition ([facility]) ([facility]) 07/26/2022 COPD exacerbation ([facility]) 07/25/2022 Hemorrhage of gastrointestinal tract 04/17/2017 Cerebrovascular accident (CVA) due to embolism of cerebral artery ([facility]) 02/12/2017 Acute deep vein thrombosis (DVT) of distal vein of right lower extremity ([facility]) 02/12/2017 Encephalopathy 02/12/2017 Posterior reversible encephalopathy syndrome (PRES) 02/12/2017 Alcohol abuse 02/10/2017 NSTEMI (non-ST elevated myocardial infarction) ([facility]) ([facility]) 02/10/2017 History of hematemesis 02/10/2017 Medical Precautions: [...] of Care supervision is transferred to a [facility] Therapy Services Physical Therapist. Goals and/or treatment plan was established in collaboration with patient/family/other representatives. Images from the original note were not included. OCCUPATIONAL THERAPY [facility] Initial Evaluation Name/MRN: Luiza May ([id number]) Evaluation Date: 10/01/2023 Date of : 1955 Admission Date: 09/26/2023 2:17 PM Age: 67 y.o. Room/Bed: T2-215/T2-215 A Discharge Recommendation: Longterm Facility Assessment IMPRESSION: Pt presents with seizures [...] disease) Cerebral artery occlusion with cerebral infarction ([facility]) ([facility]) COPD (chronic obstructive pulmonary disease) ([facility]) Hypertension Past Surgical History: Past Surgical History: Procedure Laterality Date APPENDECTOMY CHOLECYSTECTOMY COLONOSCOPY COLONOSCOPY CT CHEST ANGIOGRAM W AND/OR WO IV CONTRAST 07/26/2022 CT CHEST ANGIOGRAM W AND/OR WO IV CONTRAST 07/26/[address] [facility] [address] IMAGING Admission Diagnosis: Patient Active Problem List Diagnosis Date Noted Seizure ([facility]) 09/26/2023 Severe malnutrition ([facility]) ([facility]) 07/26/2022 COPD exacerbation ([facility]) 07/25/2022 Hemorrhage of gastrointestinal tract 04/17/2017 Cerebrovascular accident (CVA) due to embolism of cerebral artery ([facility]) 02/12/2017 Acute deep vein thrombosis (DVT) of distal vein of right lower extremity ([facility]) 02/12/2017 Encephalopathy 02/12/2017 Posterior reversible encephalopathy syndrome (PRES) 02/12/2017 Alcohol abuse 02/10/2017 NSTEMI (non-ST elevated myocardial infarction) ([facility]) ([facility]) 02/10/2017 History of hematemesis 02/10/2017 Medical Precautions: [...] Responsibilities: Independent Receives Help From: Family Active Varying Exceptionalities Teacher: Yes Prior Level of Function ADL Assistance: [...] 12 ADL Inpatient CMS G-Code Modifier: CL Plan Pt would benefit [...] In 0849 Time Out 0908 Minutes 19 Arlette Loew, S/OT Patient's Occupational Therapy Plan of Care supervision is transferred to a [facility] Therapy Services Occupational Therapist. 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 Was successfully extubated [...] other systems were reviewed and are negative. [place] Symptom Assessment Score [place] Score Pain Score 0 Tiredness Score 0 [...] 137 --> was intubated and transferred to [facility] ICU. 09/27: Extubated overnight. Required re-intubation that afternoon d/t hypoxia/increased WOB after getting up to BSC, desat ~65%, improved with BVM - eyes deviated to R -?seizure. Difficult to ventilate, started on versed gtt with improvement. 09/28: requiring ketamine/versed/precedex and still intermittently agitated. Recent unwitnessed fall 08/05/2023 resulting in subdural hematoma - admitted to [facility]. [facility]. Has not followed up [...] 0.9 % 250 mL infusion, 0.05-2 mg/kg/hr ([place]), Last Rate: 0.75 mg/kg/hr (09/30/23 0925) norepinephrine, [...] Normal [] Scar/Lesion/Mass Inspection of teeth/lips/gums Dentition: [x][place]app[place] Teeth []Dentures Lips/Gums: [x]Intact []Lesion Present Mucosa: [x][place] []Moist [x]Dry Neck: External Appearance Overall Appearance: [...] last 24 hours- BMP: Recent Labs 09/27/23 1924 09/28/23 0639 09/29/23 [...] BILITOT 0.6 ALKPHOS 101 Glucose: Recent Labs 09/28/2339 09/29/23 0558 09/30/23246 GLUCOSE 101* 128* 169* Procal: Recent Labs 09/30/2324609/30/23 07 PROCAL 0.08 0.08 CBC: Recent Labs 09/28/2363809/28/23121809/28/23173009/29/2358 09/29/23 1000 09/30/2324609/30/23310 WBC 6.6 -- -- 8.4 -- 11.4* -- HGB 7.7* -- < > 8.2* 8.5 7.9* 8.7 HCT 25.0* 30* -- 25.8* -- 24.9* -- PLT 101* -- -- 102* -- 146 -- MCV 92.6 -- -- 90.5 -- 90.2 -- RDW 13.9 -- -- 13.7 -- 13.8 -- < > = values in this interval not displayed. ABGs: Recent Labs 09/28/23121809/28/23173009/29/23 1000 09/30/23310 PHART 7.170* 7.386 -- -- WQS8JLE 80.0* 44.0 -- -- PO2ART 439.0* 162.5* -- -- PHW1HBP 29.2* 25.8* -- -- SO2ART 99.9 -- -- -- A0AIDCAR -- 60% Oxygen 50% Oxygen Vent Lactic Acid: Recent Labs 09/30/23246 LACTATE 0.8 INR: No results for input(s): [...] Needs bipap when extubated. 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 Hx bilateral ischemic stroke (?[id number]) Hx recent subdural after fall (08/2023) Hx [...] loss Temples (temporalis), Hand (interosseous) Fluid Accumulation: Field Recorder Strength: Not Performed Nutrition Assessment: Pt is [...] seizure disorder on Dilantin who presents from [facility] for management of encephalopathy d/t acute on chronic hypoxic hypercapnic respiratory failure and an apparent break-through seizure. Wound Care consulted for left heel, left forearm and lip. Pt continues on vent. Estimated Daily Nutrient Needs: Energy Requirements Based On: Kcal/kg Weight Used for Energy Requirements: [place] Weight for Energy Calculation (kg): 50 kg Total Energy Requirements (kcals/day): 25-30 kcals/kg = 7286-1486 kcals/day Weight Used for Protein Requirements: [place] Weight in Kg Used for Protein Requirements: [...] Weight: 72.2 kg (159 lb 2.8 oz) [place] Body Weight (lbs) (Calculated): 110 lbs [place] Body Weight (Kg) (Calculated): 50 kg % [place] Body Weight (Calculated): 141.9 % BMI (kg/m2) (Calculated): 28.5 BMI Categories: Overweight (BMI 25.0-29.9) Wt Readings from Last 10 Encounters: 09/28/23 70.8 kg (156 lb) 07/26/22 55.2 kg (121 lb 9.6 oz) LABS: Recent Labs 09/27/2309/27/24 0639 09/29/23 0558 09/30/23 0247 NA -- [...] Planning: Too soon to determine Jamila Wiley RD,LD,[facility] Contact: *[phone] or [employer] Chat Spiritual Care Note [facility] Palliative Care Patient Name:Luiza May Chief Complaint: [...] nine grandchildren. Patient confirmed that she is Yarsani and attends a amish in [place]. 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 Was successfully extubated [...] other systems were reviewed and are negative. [place] Symptom Assessment Score [place] Score Pain Score 0 Tiredness Score 0 [...] Assessed by: patient and provider. Social history: [place] status: no Marital status: Living status: with [...] original note were not included. PHYSICAL THERAPY [facility] Name/MRN: Luiza May ([id number]) Date: 09/30/2023 Attempted PT evaluation, pt was non arousable despite many techniques to elicit participation. Continue as screens and evaluate as appropriate. Lisa Deluna Images from the original note were not included. [facility] Wound Care Progress Note Luiza May AGE: [...] Seizure disorder on Dilantin was sent to [facility] from [facility] for management of Encephalopathy secondary to [...] ANGIOGRAM W AND/OR WO IV CONTRAST 07/26/[address] [facility] [address] IMAGING FAMILY HISTORY No family history [...] No drainage. Periwound fragile Left forearm: 1.0cmx2.5cmx0.1cm. [place] tissue noted. Scant serosang drainage. Periwound fragile [...] for: BC Assessment/Plan: Lip: Abrasion - Leave SUPPORT ANALYST, Monitor every shift Left heel: PREVENTION - follow hospital protocol for prevention Left forearm: Skin tear - Clean with NS, apply adaptic then cover with foam dressing daily and PRN Nutritional support Wound Care to follow Recommend to follow up at [facility] wound care center after hospital discharge. [...] original note were not included. OCCUPATIONAL THERAPY [facility] Name/MRN: Luiza May ([id number]) Date: 09/29/2023 Pt not appropriate for therapy [...] 137 --> was intubated and transferred to [facility] ICU. 09/27: Extubated overnight. Required re-intubation that afternoon d/t hypoxia/increased WOB after getting up to BSC, desat ~65%, improved with BVM - eyes deviated to R -?seizure. Difficult to ventilate, started on versed gtt with improvement. Recent unwitnessed fall 08/05/2023 resulting in subdural hematoma - admitted to [facility]. [facility] at that time. Has not followed up [...] Infusions:dexmedeTOMIDine, 0.1-1.5 mcg/kg/hr, Last Rate: 1.2 mcg/kg/hr (09/29/23253) midazolam, 1-10 mg/hr, Last Rate: 7 mg/hr (09/29/23116) norepinephrine, 1-20 mcg/min, Last Rate: 1 mcg/min (09/29/23127) Objective: Last Vitals: BP MAP 128/56 (09/29/2300) 76 (09/29/23599) Arterial BP MAP Temp 37 C (98.6 F) (09/29/23599) Pulse 79 (09/29/23599) Resp 18 (03/27/24 0600) SpO2 100 % (09/29/23 0600) Weight 70.8 kg (156 lb) (09/28/23 1046) BMI Body mass index is 28.53 kg/m . I/O: 09/27 0700 - 09/28 0659 In: 3514.5 [I.V.:3314.5] Out: 3590 [Urine:3590] Oxygen [...] Normal [] Scar/Lesion/Mass Inspection of teeth/lips/gums Dentition: [x][place] Teeth []Dentures Lips/Gums: [x]Intact []Lesion Present Mucosa: [x][place] []Moist [x]Dry Neck: External Appearance Overall Appearance: [...] 101* 128* Procal: Recent Labs 09/26/23 1600 09/26/23 1918 PROCAL 0.02 0.03 CBC: Recent Labs 09/27/23 [...] 09/28/23 1731 PHART 7.435 7.501* 7.170* 7.386 [id number] 58.4* 40.9 80.0* 44.0 PO2ART 52.6* 89.2 439.0* 162.5* SMD2SZG 38.3* 31.9* 29.2* 25.8* SO2ART -- 97.6 99.9 -- Z8PIICEL 40% Oxygen -- -- 60% Oxygen Lactic [...] again - palliative consulted. 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 Venkata Nh'ed, started on keppra on admission - will [...] can send studies. Hx bilateral ischemic stroke (?[id number]) Hx recent subdural after fall (08/2023) Hx [...] original note were not included. PHYSICAL THERAPY [facility] Name/MRN: Luiza May ([id number]) Date: 09/28/2023 PT orders received. Pt had to be re-intubated and sedated this AM. Will hold PT and continue to follow with PT screens. Kadi Mcneal PT Speech-Language Pathology Received orders for a speech evaluation and treat. Patient is currently intubated and unable to participate. Completed orders and await re-consult 12- 24 hours post-extubation. Vianca Sharif MA CCC-[employer] 09/28/23 1226 Patient Parameters Ventilator On Yes [...] from the original note were not included. [facility] Wound Care Progress Note Luiza May AGE: [...] Seizure disorder on Dilantin was sent to [facility] from [facility] for management of Encephalopathy secondary to [...] ANGIOGRAM W AND/OR WO IV CONTRAST 07/26/[address] [facility] [address] IMAGING FAMILY HISTORY No family history [...] No drainage. Periwound fragile Left forearm: 1.0cmx2.5cmx0.1cm. [place] tissue noted. Scant serosang drainage. Periwound fragile [...] for: BC Assessment/Plan: Lip: Abrasion - Leave SUPPORT ANALYST, Monitor every shift Left heel: PREVENTION - follow hospital protocol for prevention Left forearm: Skin tear - Clean with NS, apply adaptic then cover with foam dressing daily and PRN Nutritional support Wound Care to follow [facility] [facility] wound care center after hospital discharge. [...] level reported to be subtherapeutic. Transferred to [facility] for further care. Limited history regarding seizures. [...] through a skull defect) superimposed on a bmnoujom-xf-oirclp global encephalopathy. CT Head 09/27/23: No acute [...] signing off for vancomycin dosing. Kayla Taylor [facility], PharmD Date: 09/28/23 Time: 6:53 AM ICU [...] 137 --> was intubated and transferred to [facility] ICU. Recent unwitnessed fall 08/05/2023 resulting in subdural hematoma - admitted to [facility]. [facility]. Has not followed up with NSGY d/t location/distance. Interval Events: Extubated overnight after MRI to NIV. Taken off NIV this morning to [place] and tolerating well. Denies SOB. On home [...] Normal [] Scar/Lesion/Mass Inspection of teeth/lips/gums Dentition: [x][place]appahann[place] Teeth []Dentures Lips/Gums: [x]Intact []Lesion Present Mucosa: [x][place] []Moist [x]Dry Neck: External Appearance Overall Appearance: [...] within last 24 hours- BMP: Recent Labs 09/26/23159909/27/23 0516 09/27/23192309/28/23 0639 NA 142 139 -- 138 K [...] GLUCOSE 114* 103* 101* Procal: Recent Labs 09/26/23159909/26/231917 PROCAL 0.02 0.03 CBC: Recent Labs 09/26/23 1600 09/27/23 0516 09/27/23 0910 09/28/23 0639 WBC 8.3 8.5 -- 6.6 HGB 9.1* 8.8* -- 7.7* HCT 31.5* 29.1* 30* 25.0* PLT 135* 147 -- 101* MCV 97.5 94.5 -- 92.6 RDW 12.8 12.9 -- 13.9 ABGs: Recent Labs 09/26/23 1542 09/27/23 0910 PHART 7.435 7.501* QGL6GXL 58.4* 40.9 PO2ART 52.6* 89.2 UJE7KCO 38.3* 31.9* SO2ART -- 97.6 S2WFQKEX 40% Oxygen -- Lactic Acid: Recent Labs [...] Solumedrol for 5 day course for COPD. 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 Transferred to [facility] for further care. Limited history regarding seizures. [...] safety concerns ANCILLARY Cardiac testing: EKG: SR Radiology/imaging personal review: EEG: IMPRESSION AND ACTIONS [...] through a skull defect) superimposed on a ymgtqszq-lv-blplvn global encephalopathy. CT Head 09/27/23: No acute [...] 137 --> was intubated and transferred to [facility] ICU. Recent unwitnessed fall 08/05/2023 resulting in subdural hematoma - admitted to [facility]. [facility]ED at that time. Has not followed up [...] propofol, 5-50 mcg/kg/min, Last Rate: 25 mcg/kg/min (09/27/23 010) Objective: Last Vitals: BP MAP 117/55 (09/27/23729) [...] Normal [] Scar/Lesion/Mass Inspection of teeth/lips/gums Dentition: [x]Rappah[place]ock Teeth []Dentures Lips/Gums: [x]Intact []Lesion Present Mucosa: [x][place] [x]Moist []Dry Neck: External Appearance Overall Appearance: [...] ABGs: Recent Labs 09/26/23 1542 PHART 7.435 ZEP7KTP 58.4* PO2ART 52.6* NWK8DKF 38.3* R3TZOAAV 40% Oxygen Lactic Acid: Recent Labs 09/26/23 [...] today. Switch to precedex. 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 Now care transferred to [facility] ICU for further management of recurrent seizure. [...] Conjunctiva []Injected [x]Non-Injected Pinnae []Normal []Other Dentitian []Rapp[place] Teeth []Dentures []Poor dentition []Edentulous Oral Mucosa [][place] []Moist []Dry Oral ETT [x]Present []Absent Neck: [...] sec REGALADO ([]RUE []RLE []LUE []LLE) Neurologic: [place]AT []Yes []No Corneal reflexes []Present []Absent Plantar [...] new evidence emerges. documented in this encounter [facility] 10-12-2023 Miscellaneous Notes Patient Choice Patient Name: LUIZA MAY Date of : 1955 All Providers Sent Referral Name: [facility] Phone: [phone] Address: [address] [place] [address] Name: [facility] Phone: [phone] Address: [address] [place] [address] Discharge med list, MAR and updated notes transmitted to [facility] via Careport per [facility] request. SPOKE WITH PT AND FAMILY AT BEDSIDE, NOW HAVE AUTH FOR PT TO GO TO [facility]. SW TO SET UP TRANSPORT. SECURE CHAT WITH DR CANSECO FOR DC ORDERS. TASKED CAM TO SEND DC PAPERWORK TO [facility]. BEDSIDE NURSE ALSO AWARE DISCHARGING TODAY. Social work follow up on coverage case. SW was notified by the [facility] that the patient approved for admission to [facility]. Transport arranged with Ashok Sorensen via COT for 4 pm pharmacy picking tech. SW updated the patient at bedside on transport time and possible copay/expense for transport. SW updated the patients daughter Ameena via phone on transport time. SW updated patients bedside RN, community health advocate and [facility] liaison on transport time. Images from the original note were not included. Care Management Progress Note WAITING FOR EXPEDITED APPEAL FOR [facility]. REMAINS TRACH/VENT, O2 AT 35%, PEG TUBE [...] FINESSE 10/05/2023 7:31 AM 10/13/2023 Renetta Barraza, RN 10/04/2023 8:15 AM 10/03/2023 Yanet Aguilar MD 10/01/2023 7:38 PM 10/06/2023 Renetta Barraza, RN 10/01/2023 8:09 AM 10/03/2023 Renetta Barraza, RN 10/01/2023 8:08 AM 10/03/2023 Renetta Barraza, RN 09/30/2023 8:01 AM 10/03/2023 Renetta Barraza, RN 09/29/2023 7:19 AM 10/03/2023 Renetta Barraza, RN 09/28/2023 7:50 AM 10/03/2023 Renetta Barraza, RN 09/27/2023 9:40 AM 10/03/2023 Yuridia Pierre DO 09/26/2023 3:07 PM Length of Stay (Days): 15 GMLOS: 5.2 DCP- [facility] pending (started 10/07). Messaged LTAC liaison regarding [...] AEROSOLS. PULM FOLLOWING. PLAN TO DC TO [facility], EXPEDITED APPEAL PAPERWORK SIGNED BY DR IRWIN. I FAXD BACK TO [facility]. WILL CONTINUE TO FOLLOW. Discharge Milestones and Delays Expected Date/Time: 10/09/[address] discharge order Complete med reconciliation Case mgmt discharge readiness Clinical Stability Diagnsotic Workup Facility Choice Selection Facility Pre-cert Expected Discharge History Expected Date/Time Set By Reviewed At 10/09/2023 Nicki Mclean, FINESSE 10/08/2023 8:00 AM auth pending -started 10/0410/07/2023 Zoe Carmona RN 10/07/2023 10:54 AM 10/07/2023 Zoe Carmona RN 10/06/2023 11:14 AM 10/13/2023 Renetta Barraza RN 10/05/2023 7:31 AM 10/13/2023 Renetta Barraza RN 10/04/2023 8:15 AM 10/03/2023 Yanet Aguilar MD 10/01/2023 7:38 PM 10/06/2023 Renetta Barraaz RN 10/01/2023 8:09 AM 10/03/2023 Renetta Barraza [...] Yes, addressed in today's progress note Anticipated [place] Medications (ICU initiated) or Dose Changes and Indication No Permanently Discontinued Home Medications and Reason for medication contraindication No [place] Catheter (please remove if able. Note: place DC order) Yes, indication diuresis, I&O Central Line (please remove if able. Note: place DC order) Yes, indication Unable to obtain peripheral access Transfer Discussed with: Dr Perez- [facility] and Dr Villafuerte- ICU If additional questions for ICU team within 24 hours of ICU transfer, [facility] Critical Care for clarifications. Images from the original note were not included. Care Management Progress Note Remains on vent, trach. Given IV Lasix this AM. Off precidex. Up in chair. Auth pending for [facility] (Rian) Discharge Milestones and Delays Expected Date/Time: 10/07/2023 [...] 10 GMLOS: 5.2 [facility] Referral placed to [facility] - [facility] per TCC request. Await review and response [...] Soliman. TCC spoke with patient's sister Ameena [phone] regarding discharge planning. Agreeable to patient going to [facility] in [place], [place]. TCC tasked FUNERAL SERVICE LICENSEE to send referral to [facility] via [facility]. TCC asked to start auth as well. Discharge Planning: [facility]. Awaiting facility precert, clinical stability and medical clearance. Will continue to follow with Daniela and . Discharge Milestones and Delays Expected [...] Barraza, FINESSE 09/29/2023 7:19 AM 10/03/2023 Renetta Barraza, FINESSE 09/28/2023 7:50 AM 10/03/2023 Renetta Barraza, FINESSE 09/27/2023 9:40 AM 10/03/2023 Yuridia Pierre DO 09/26/2023 3:07 PM Length of Stay (Days): 9 GMLOS: 5.2 Called Ameena May [phone] for consent for blood product for her [...] None Condition: Tolerated procedure well, returned to ICU Des Sutton MD General Surgery PGY-3 Pager # [phone] Associated attestation - Seth Muller MD - [...] level of external bumper. Panfilo Muller MD [facility] Trauma, Surgical Critical Care, & General Surgery Division of Trauma Department of Surgery [facility] P Date: 10/04/2023 Location: [facility] OR Name: Luiza May, : 1955, Diagnosis Pre-op Diagnosis * Acute respiratory failure with hypoxia and hypercapnia (HCC) [J96.01, J96.02] Post-op Diagnosis * Acute respiratory failure with hypoxia and hypercapnia (HCC) [J96.01, J96.02] Procedures DIAGNOSTIC BRONCHOSCOPY, TRACHEOSTOMY, PEG TUBE 40376 - NV TRACHEOSTOMY PLANNED SEPARATE PROCEDURE ESOPHAGOGASTRODUODENOSCOPY WITH PERCUTANEOUS ENDOSCOPIC GASTROSTOMY TUBE PLACEMENT 51231 - NV EGD PERCUTANEOUS PLACEMENT GASTROSTOMY TUBE Surgeons * Seth Muller - Primary Procedure Summary Anesthesia: General ASA: IV Estimated Blood Loss: 10 mL Drains: NG/OG Tube Orogastric 16 Fr Left mouth (Active) Placement Verification X-ray 10/03/231999 External Catheter Length (cm) 57 cm 10/03/231999 Site Assessment Clean;Intact 10/04/23 0800 Status Medication administration 10/04/23 0800 Drainage Appearance None 10/03/231999 Interventions Irrigated 10/03/23 213 Irrigant Sterile water 10/03/23 213 Free Water Intake (mL) 60 mL 10/04/23 0800 Gastrostomy/Enterostomy PEG - Percutaneous endoscopic gastrostomy (PEG) LUQ (Active) Dressing Status New dressing;Clean, dry & intact 10/04/23 1139 Dressing Intervention New dressing 10/04/23 113 Urethral Catheter Temperature probe 18 Fr. (Active) Catheter Indications Hourly I&Os (Critical Care ONLY) 10/04/23 0800 Site Assessment Clean;Skin intact 10/04/23 0800 Collection Container Standard drainage bag 10/04/23 08 Securement Method Securing device 10/04/23 08 Catheter Best Practices Drainage tube clipped to bed 10/04/23 0800 Catheter Status Draining;Patent 10/04/23 08 Output (mL) 100 mL 10/04/23 1000 [REMOVED] NG/OG Tube Orogastric Center mouth (Removed) Placement Verification X-ray 09/26/231999 Site Assessment Clean;Intact 09/27/231999 Status Clamped 09/27/231999 Drainage Appearance None 09/27/231999 Interventions Irrigated 09/26/231999 Irrigant Sterile water 09/26/231999 Free Water Intake (mL) 90 mL 09/26/231999 [REMOVED] NG/OG Tube Orogastric (Removed) Placement Verification [...] 10/03/23 1014 Status Clamped 10/03/23 1014 Staff: Computer Systems Administrator: Maren Goldman RN Relief Computer Systems Administrator: Miroslava Berrios RN Scrub Person: Romana Hurst[facility] Colorado[facility] Distribution Superintendent Student: Meliza Garrison Findings: PEG tube 3cm [...] Free from restraint(s) (Restraint for Interference with Blower And Compressor Assembler) Outcome: Not Progressing Problem: Safety - Non-violent/Interference with Medical Treatment Restraint Goal: Remains free of injury from restraints (Restraint for Interference with Blower And Compressor Assembler) Outcome: Progressing Problem: Safety - Non-violent/Interference with Medical Treatment Restraint Goal: Remains free of injury from restraints (Restraint for Interference with Blower And Compressor Assembler) Outcome: Completed Problem: Safety - Non-violent/Interference with Medical Treatment Restraint Goal: Free from restraint(s) (Restraint for Interference with Blower And Compressor Assembler) Outcome: Completed Problem: Potential for Compromised Skin [...] Palliative Care Not Managing Any Medications Nursing: Longterm Care and Skin Integrity Social Work: No Unmet Needs Spiritual Care: No Unmet Needs Pharmacy: No Unmet Needs Psychology/Psychiatry: No Unmet Needs Problem: Safety - Non-violent/Interference with Medical Treatment Restraint Goal: Free from restraint(s) (Restraint for Interference with Blower And Compressor Assembler) Outcome: Not Progressing Flowsheets (Taken 09/30/20231999) Free [...] injury from restraints (Restraint for Interference with Blower And Compressor Assembler) Outcome: Progressing Flowsheets (Taken 09/30/20231999) Remains free [...] and hydration Family Communication along with ICU PUBLIC WORKS MANAGER-CLEAN UP WORKER Mildred Smith Number Called: [phone] Name of Designated Family Air Pollution Control Engineer: Ameena daughter I spoke with the individual listed above Family Air Pollution Control Engineer Updated on the Following: medical updates, plans [...] injury from restraints (Restraint for Interference with Blower And Compressor Assembler) Outcome: Adequate for Discharge Goal: Free from restraint(s) (Restraint for Interference with Blower And Compressor Assembler) Outcome: Adequate for Discharge Care Managment Initial Assessment Date: 09/27/2023 Patient Name: Luiza May : 1955 Patient Information Source of Information: Patient Air Pollution Control Engineer Name/Contact Information: Dex (s/o), Gene (son), Ameena (dtr) Cognition/Language: Confused at baseline Permission given to speak with patient wine sales representative/caregiver as indicated: Confirmation of Payer with patient/family: Yes Payer Name: Anthem Medicare : No Confirmation of Primary Care Physician: [...] Daily Living Prescription Coverage: Yes Pharmacy Used: [id number] - [place], [place] - [address] Medication Management: Medication dispenser Who assists with [...] Durable Medical Equipment: Cane, Walker DME Provider: Marybeth Mariee Patient's Goal/Discharge Plan Patient expects to be discharged to: TBD Discharge Planning Actions: Continue to follow Patient's Choice Rights and [employer] and Collaborative Relationships Disclosed as Indicated for Post-Acute Care: Interdisciplinary Team Engagement: PT/OT Social Work Referral for: Additional Information: Chart reviewed. Patient admitted to [facility] ICU for seizure 09/26/2023. Consults to [...] Free from restraint(s) (Restraint for Interference with Blower And Compressor Assembler) Outcome: Not Progressing Problem: Safety - Non-violent/Interference with Medical Treatment Restraint Goal: Remains free of injury from restraints (Restraint for Interference with Blower And Compressor Assembler) Outcome: Progressing documented in this encounter [facility] 10-10-2023 Nurse Note Pt complaining of significant [...] assisted back to bed, RT notified via Corso12 to come to room, RN place NIV mask over patients mouth/nose with sats increasing into 70's. GUSTABO Nixon emergently notified via secure chat to come to bedside. RT, INSTITUTE DIRECTOR and Dr. Hurst came to bedside, patient [...] con't to monitor. documented in this encounter [facility] 10-07-2023 Consult note Associated Order (s): IP CONSULT TO PULMONOLOGY Pulmonary consult acknowledged. Pulmonary service to follow when patient is transferred out of ICU. Associated Order(s): IP CONSULT TO CARDIOLOGY [facility] [place] [facility] Cardiology /Electrophysiology Consult Note Reason for Consult/Chief Complaint: Heart failure Referring provider: Lauryn Mcdonald APRN Established vacuum form operator: None History of Present Illness: Luiza May [...] she has previously undergone LHC/ischemic workup at [facility] which did not show significant coronary disease. [...] 0.9 % 250 mL infusion, 0.05-2 mg/kg/hr ([place]), Last Rate: Stopped (10/05/23 1030) norepinephrine, 1-100 mcg/min, Last Rate: 1 mcg/min (10/05/23 1032) Physical Examination: Vitals: 10/05/23 1145 10/05/23 1200 10/05/23 1215 10/05/23 1230 BP: 111/69 124/63 116/61 108/59 BP Location: Left arm Patient Position: Lying Pulse: 91 90 91 89 Resp: Temp: 37.2 C (99 F) 37.1 C [...] no focal deficits Laboratory Tests: Recent Labs 10/03/23 0424 10/04/23 0427 10/05/23 0617 NA 142 140 142 K 3.9 3.4* 3.2* CL 106 103 102 CO2 30 29 33* BUN 17 15 15 CREATININE 0.48* 0.45* 0.59 EGFR >90.0 >90.0 >90.0 No results for input(s): CKTOTAL , CKMB , CKMBINDEX , TROPONINI in the last 72 hours. Recent Labs 10/03/23 0424 10/03/23 0937 10/04/23 0427 10/04/23 0829 10/05/23 0343 [...] Patient will likely follow up locally with [facility] cardiology as she has done prior Cardiology to sign off Paul Mcbride MD Department of Cardiovascular Disease, Division of Heart Failure [facility] [place] 3:22 PM 10/05/23 Images from the original [...] ANGIOGRAM W AND/OR WO IV CONTRAST 07/26/[address] [facility] [address] IMAGING Medications Prior to Admission: aspirin, [...] 0.9 % 250 mL infusion, 0.05-2 mg/kg/hr ([place]) norepinephrine, 1-100 mcg/min, Last Rate: 5 mcg/min [...] 20 min Stress: Stress Concern Present (07/26/2022) [place] of Occupational Health - Occupational Stress Questionnaire Feeling of Stress : Very much Social Connections: Moderately Isolated (07/26/2022) Social Connection and Isolation Panel [NHANES] Frequency of Communication with Friends and Family: More than three times a week Frequency of Social Gatherings with Friends and Family: More than three times a week Attends Christianity Services: Never Active Member of Clubs or [...] last 7 days Lab Units 10/03/23 0937 10/03/23 0424 10/02/23 2305 10/02/23 2105 10/02/23 0442 10/01/23 0358 WBC AUTO 10*3/uL -- 10.7 -- -- 10.8* 7.4 HEMOGLOBIN g/dL -- 7.3* -- -- 7.7* 7.6* HEMOGLOBIN BG g/dl 8.3 -- 8.0 < > -- -- HEMATOCRIT % -- 23.7* -- -- 25.4* 24.7* PLATELETS AUTO 10*3/uL -- 224 -- -- 178 153 < > = values in this interval not displayed. Results from last 7 days Lab Units 10/03/23 04210/02/2344110/01/23 0358 SODIUM mmol/L 142 143 143 POTASSIUM mmol/L 3.9 3.3* 3.5 CHLORIDE mmol/L 106 104 105 CO2 mmol/L 30 29 30 BUN mg/dL 17 16 14 CREATININE mg/dL [...] last 7 days Lab Units 10/03/23 0424 10/02/2344110/01/23 0358 MAGNESIUM mg/dL 1.9 2.0 1.9 IMAGING: All imaging reviewed ASSESSMENT AND PLAN: This is a 67 y.o. female with acute respiratory distress with failed extubation - Add on for OR for open tracheostomy and peg tube placement tomorrow - Hold tube feeds at [place] - Medical management per primary Patient discussed with attending, Dr. Ledesma. [facility] General Surgery PGY-5 10/03/23 10:22 AM Pager [...] (HCC) I personally supervised the resident or PUBLIC WORKS MANAGER/AMANDA in the evaluation and development of a [...] MD Division of Trauma Department of Surgery [facility] Associated Order(s): IP CONSULT TO GENERAL SURGERY Images from the original note were not included. Department of General Surgery Surgical Service - [facility] Resident Consult Note 10/01/2023 CHIEF COMPLAINT: No [...] ANGIOGRAM W AND/OR WO IV CONTRAST 07/26/[address] [facility] [address] IMAGING Medications Prior to Admission: No [...] 20 min Stress: Stress Concern Present (07/26/2022) [place] of Occupational Health - Occupational Stress Questionnaire Feeling of Stress : Very much Social Connections: Moderately Isolated (07/26/2022) Social Connection and Isolation Panel [NHANES] Frequency of Communication with Friends and Family: More than three times a week Frequency of Social Gatherings with Friends and Family: More than three times a week Attends Christianity Services: Never Active Member of Clubs or [...] contrast Patient Name: LUIZA MAY : 1955 Exam Date/Time: 10/01/2023 13:51 Procedure: CT ABDOMEN [...] bowel loops appear to be colonic and [place]'s is a consideration. Follow-up recommended. Report Dictated [...] Surgery PGY-2 10/01/23 5:32 PM Pager # [phone] This note may have been dictated using [employer] Medical Practice Edition 2.6 and/or [employer] Voice Recognition Feature. The document was proofread; however, unrecognized voice recognition textiles sales representative errors may be present. Associated attestation - Elda Ledesma MD - 10/08/2023 4:21 PM EDT I saw and evaluated the patient and I agree with the assessment and the plan as documented by the resident below. Elda Ledesma MD Division of Trauma Department of Surgery [facility] Associated Order(s): IP CONSULT TO [...] - Per ICU: levetiracetam HX CVA/SDH - SENIOR APPLICATIONS ANALYST resided at home with s/o - PT/OT [...] level, hypercarbic requiring intubation and transfer to [facility] ICU level of care. Was successfully extubated however within a few hours with difficulty oxygenating requiring re-intubation. Palliative care consulted for goals of care Patient intubated, sedated on 9mg/hr midazolam, restrained on vent does awaken to answer simple yes and no questions before returning to [facility]. Without pain, CP, abdominal pain, breathing not [...] ANGIOGRAM W AND/OR WO IV CONTRAST 07/26/[address] [facility] [address] IMAGING No family history on file. Unable to obtain family history due to patient intubated Allergies Allergen Reactions Tetanus Toxoid Swelling Review of Systems ROS: See palliative care ROS/ESAS below; All other systems were reviewed and are negative. [place] Symptom Assessment Score [place] Score Pain Score 0 Tiredness Score 8 [...] to pain Assessed by: provider. Social history: [place] status: no Marital status: Living status: with [...] loss Temples (temporalis), Hand (interosseous) Fluid Accumulation: Field Recorder Strength: Not Performed Nutrition Assessment: Pt is a 76-jzox-hjl-female with PMH significant for COPD (2L), previous trach, HFpEF, stroke with residual dysphagia (previous PEG), breast cancer, HTN, depression, recent traumatic parafalcine SDH Aug 2023 presented to OSH 09/25 with GTC seizures. Found to have respiratory failure as well (pH 7.14, pCO2 137), placed on NIV and required intubation. Dilantin level reported to be subtherapeutic. Transferred to [facility] for further care. RD visited pt; she continues on vent, appeared agitated, RN entered room to address. Estimated Daily Nutrient Needs: Energy Requirements Based On: Kcal/kg Weight Used for Energy Requirements: [place] Weight for Energy Calculation (kg): 50 kg Total Energy Requirements (kcals/day): 25-30 kcals/kg = 3381-0849 kcals/day Weight Used for Protein Requirements: [place] Weight in Kg Used for Protein Requirements: [...] lb 2.8 oz) Weight Source: Bed Scale [place] Body Weight (lbs) (Calculated): 110 lbs [place] Body Weight (Kg) (Calculated): 50 kg % [place] Body Weight (Calculated): 144.7 % BMI (kg/m2) [...] Planning: Too soon to determine Jamila Wiley RD,LD,[facility] Contact: [phone] or [employer] Chat Associated Order(s): IP WOUND CARE NURSE CONSULT TO EVAL Images from the original note were not included. [facility] Wound Care CONSULT Note Luiza May AGE: [...] Seizure disorder on Dilantin was sent to [facility] from [facility] for management of Encephalopathy secondary to [...] ANGIOGRAM W AND/OR WO IV CONTRAST 07/26/[address] [facility] [address] IMAGING FAMILY HISTORY No family history [...] No drainage. Periwound fragile Left forearm: 1.0cmx2.5cmx0.1cm. [place] tissue noted. Scant serosang drainage. Periwound fragile [...] for: BC Assessment/Plan: Lip: Abrasion - Leave SUPPORT ANALYST, Monitor every shift Left heel: PREVENTION - follow hospital protocol for prevention Left forearm: Skin tear - Clean with NS, apply adaptic then cover with foam dressing daily and PRN Nutritional support Wound Care to follow Recommend to follow up at [facility] wound care center after hospital discharge. [...] 8:56 AM Kimberlee Winter RPh (available on [email or web address]) Associated Order(s): IP CONSULT TO NEUROLOGY INITIAL CONSULT NOTE. NEUROCRITICAL CARE Patient Name: Luiza May Patient : 1955 Acct: [id number] Date of Admission: 09/26/2023 Room/Bed: T2-215/T2-215 A PCP: Joy Stahl History of Present Ilness: 67 y.o. is a patient with the chief Complaint of: Seizure-like activity witnessed by She is a direct transfer from [facility] due to seizure-like activity witnessed by her . On review of [facility] records, her was helping her go to the bathroom when her legs gave out and she fell to the floor with rhythmic shaking . She has known seizure history disorder was on Dilantin 100 mg every 8 hours. Dilantin level was measured at [facility] at 4.6. Per chart review she has [...] clarification of history however she did not pharmacy picking tech the phone. Past Medical History: Past Medical History: Diagnosis Date Asthma CAD (coronary artery disease) Cerebral artery occlusion with cerebral infarction (CMS/HCC) (HCC) COPD (chronic obstructive pulmonary disease) (HCC) Hypertension Past Surgical History: Past Surgical History: Procedure Laterality Date APPENDECTOMY CHOLECYSTECTOMY COLONOSCOPY COLONOSCOPY CT CHEST ANGIOGRAM W AND/OR WO IV CONTRAST 07/26/2022 CT CHEST ANGIOGRAM W AND/OR WO IV CONTRAST 07/26/[address] [facility] [address] IMAGING Home Medications: Prior to Admission [...] mg, 1,000 mg, Oral, q8h PRN, Yuridia Pierre, DO [Held by provider] ARIPiprazole (Abilify) tablet 2 mg, 2 mg, Oral, Daily, Yuridia Pierre, atorvastatin (Lipitor) tablet 40 mg, 40 mg, Oral, Nightly, Yuridia Pierre, DO bisacodyl (Dulcolax) suppository 10 mg, 10 mg, Rectal, Daily PRN, Yuridia Pierre, DO DULoxetine (Cymbalta) DR capsule 60 mg, 60 mg, Oral, Daily, Yuridia Ignacio, DO enoxaparin (Lovenox) syringe 40 mg, 40 mg, SubCUTAneous, Daily, Yuridia Ignacoi, DO folic acid (Folvite) tablet 1 mg, 1 mg, Oral, Daily, Yuridia Ignacio, DO norepinephrine (Levophed) infusion 16 mg in 0.9 % sodium chloride 250 mL (Ecj-Wemefj-Zksde) (premix), 1-100 mcg/min, IntraVENous, Continuous, Yuridia Ignacio, DO norepinephrine in sodium chloride 0.9 % (Levophed) [...] 391 ms QTC Interval 463 ms P [place] 72 degrees QRS [place] 60 degrees T Wave [place] 65 degrees NV Interval 111 ms ASSESSMENT / PLAN / SUGGESTIONS : Syncope with collapse and witnessed seizure activity-no seizure activity since arriving to the ER, given 970 mg Dilantin x 1,Keppra 1g, Versed drip History of seizure disorder on Dilantin-her Dilantin level is 4.6. She was given 970 mg Dilantin x 1 at [facility] Subtherapeutic Dilantin level-will recheck tomorrow AM [...] Care / stroke Attending Patient transferred from [facility], seizures however last evening , Reported as possible status but she arrived to ICU awake and interactive not actively having seizures This occurred in the setting in which she has long standing history of seizure disorder and is on PNT , presenting to [facility] with suboptimals PNT level , Current level [...] Team, ., ., . Thank you Joy Stahl for the opportunity to be involved in this patient's care. documented in this encounter [facility] 10-07-2023 Note OCCUPATIONAL THERAPY Attempted OT services however due to recent trach/PEG placement referred POC to OTR for possible re evaluation. Will continue to monitor for continued OT treatment. [facility] 10-05-2023 Note [facility] 10-05-2023 Procedure note Associated Ord er(s): Bronchoscopy [...] documented as signed by this procedure note [employer] Leader(s): N/A Quality Engineer: Dr. Decker The attending physician was physically [...] documented as signed by this procedure note [employer] Leader(s): Lauryn Mcdonald CNP No supervision required Associated [...] documented as signed by this procedure note [employer] Leader(s): N/A No supervision required The attending physician was physically present while the proceduralist performed starr/critical components of the procedure. Attending: Dr. Annia Gaitan Associated attestation - Severo Hurst DO - 09/28/2023 12:30 PM EDT I have reviewed and agree with the resident/fellow/BACILIO note I was physically present for starr elements of the procedure Complications during procedure: None Associated Order(s): EEG Images from the original note were not included. [facility] [address] [place] [id number] ROUTINE EEG REPORT Patient Name: Luiza May : 1955 Date of Study: 09/26/2023 Duration Recorded: 30 minutes EEG#: [id number] WELDING MACHINE OPERATOR HELPER GAS: Isabel Chow PROVIDER REQUESTING STUDY: Charlene Henderson MD REASON FOR EXAM: Evaluate for seizures DIAGNOSIS TAG: Transient Neurologic Symptoms (TNS) HISTORY: Luiza May is a 67 y.o. female with history of OPD, TIO, ch respiratory failure on home oxygen and home BIPAP, seizure disorder on dilantin. She is a direct transfer from [facility] due to seizure-like activity witnessed by her . On review of [facility] records, her was helping her go to the bathroom when her legs gave out and she fell to the floor with rhythmic shaking . She has known seizure history disorder was on Dilantin 100 mg every 8 hours. Dilantin level was measured at [facility] at 4.6. Per chart review she has [...] clarification of history however she did not pharmacy picking tech the phone. MEDICATIONS: Current Facility-Administered Medications Medication Dose Route Frequency Provider Last Rate Last Admin acetaminophen (Tylenol) solution 1,000 mg 1,000 mg Oral q8h PRN Yuridia Pierre DO [Held by provider] ARIPiprazole (Abilify) tablet 2 mg 2 mg Oral Daily Yuridia Pierre, DO atorvastatin (Lipitor) tablet 40 mg 40 mg Oral Nightly Yuridia Pierre, DO bisacodyl (Dulcolax) suppository 10 mg 10 mg Rectal Daily PRN Yuridia Pierre, DO budesonide (Pulmicort) 0.5 MG/2ML nebulizer solution 0.5 mg 0.5 mg Nebulization Daily Marisela Fernandez MD DULoxetine (Cymbalta) DR capsule 60 mg 60 mg Oral Daily Yuridia Pierre, DO enoxaparin (Lovenox) syringe 40 mg 40 mg SubCUTAneous Daily Yuridia Pierre, DO folic acid (Folvite) tablet 1 mg 1 mg Oral Daily Yuridia Pierre, DO 1 mg at 09/26/23 1708 ipratropium-albuterol (Duo-Neb) 0.5-2.5 mg/3 mL nebulizer solution 3 mL 3 mL Nebulization TID Marisela Fernandez MD methylPREDNISolone sod suc (PF) (SOLU-Medrol) 40 MG injection 40 mg 40 mg IntraVENous q24h Marisela Fernandez MD 40 mg at 09/26/23 1736 norepinephrine (Levophed) infusion 16 mg in 0.9 % sodium chloride 250 mL (Lyn-Sgdvrb-Jbdbu) (premix) 1-100 mcg/min IntraVENous Continuous Yuridia Pierre DO 4.69 mL/hr at 09/26/23 1800 5 [...] drop 1 drop Both Eyes PRN Yuridia Ignacio, DO sodium chloride 0.9 % infusion 5-250 mL/hr IntraVENous PRN Yuridia Ignacio, DO TECHNICAL ASPECTS: This routine scalp EEG study with video was carried out at [facility]. Scalp electrodes were positioned in person by an pharmacy technologist, following patient education, according to the 10-20 International system of electrode placement and maintained for integrity and quality of the recording. EEG data with video was recorded continuously and digitally stored. The pharmacy technologist reviewed all automated detections and manual [...] through a skull defect) superimposed on a gwomobtu-qh-mrdkof global encephalopathy. Escobar Kumar MD, PHD Epilepsy Attending documented in this encounter [facility] 10-05-2023 Note Referral placed to [facility] via [facility] per TCC request. Await review and response regarding ability to accept. TCC notified. [facility] 10-05-2023 Hospital Discharge instructions Analy Ramirez RN [...] [place] Mobile Relation: Son Preferred language: Singaporean Hydrographic Surveyor needed? No Past Surgical History: Past Surgical History: Procedure Laterality Date APPENDECTOMY CHOLECYSTECTOMY COLONOSCOPY COLONOSCOPY CT CHEST ANGIOGRAM W AND/OR WO IV CONTRAST 07/26/2022 CT CHEST ANGIOGRAM W AND/OR WO IV CONTRAST 07/26/[address] [facility] [address] IMAGING Immunization History: Immunization History Administered [...] Minimal assistance Toileting Minimal assistance Feeding Independent Network Director Minimal assistance Med Delivery yes Wound Care Documentation and Therapy: Wound/Incision 09/26/23 Traumatic Lip Left;Upper (Active) Wound Image 09/26/23 1433 Site Assessment [place] 10/05/23 1200 Wound Length (cm) 0.8 cm [...] Assessment Score: @READMISSIONRISKDETAILS@ Discharging to Facility/ Agency [place] [phone] Dialysis Facility (if applicable) Name: Address: Dialysis Schedule: Phone: Fax: Acquisition Lead/Associate Dean Of Women signature: ICIAN SECTION Prognosis: good Condition at [...] H&P PHYSICIAN SIGNATURE: documented in this encounter [facility] 10-04-2023 Note [facility] [employer] [facility] 10-04-2023 Note [facility] [employer] [facility] 10-03-2023 Note [facility] 09-30-2023 Note PHYSICAL THERAPY [facility] Name/MRN: Luiza May ([id number]) Date: 09/30/2023 Attempted PT evaluation, pt was non arousable despite many techniques to elicit participation. Continue as screens and evaluate as appropriate. Lisa [facility] 09-29-2023 Miscellaneous Notes Patient has been [...] primary care: 10/08/2023 Please advise. Thank you. Miranda Connell LPN. documented in this encounter [facility] 09-28-2023 Note Speech-Propulsion Generator Repairer ology Received orders for a speech evaluation and treat. Patient is currently intubated and unable to participate. Completed orders and await re-consult 12- 24 hours post-extubation. Vianca Sharif MA CCC-[employer] UTILITY WORKER [facility] 09-28-2023 Note [facility] 09-27-2023 Miscellaneous Notes Patient has been identified by name and date of : Yes, Provider [facility] phones for refill(s): Requested Prescriptions Pending Prescriptions Disp Refills phenytoin (DILANTIN) 125 mg/5 mL susp 237 mL 4 Sig: Take 4 mL by mouth every 8 hours. Date of last office visit in primary care: 09/23/23 Date of next office visit in primary care: 10/08/23 Please advise. Thank you. Bhavana Garza LPN. documented in this encounter [facility] 09-26-2023 Note [facility] 09-26-2023 Note [facility] 09-26-2023 History and physical note Images from [...] hemorrhagic CVA s/p Surgical intervention at [facility] ([place]. 2022), GERD, h/o VTE, Hypertension, depression, anxiety, h/o Breast Cancer, former EtOH abuse, Seizure disorder on Dilantin was sent to [facility] from [facility] for management of Encephalopathy secondary to Acute on chronic Hypoxic Hypercapnic respiratory failure and what seem to be a break through seizure. Patient was at home walking in to the bathroom when she reportedly experienced rhythmical shaking and tonic-clonic posturing that lasted less than 10min, witnessed by her fiance. They called EMS and was eventually taken to [facility] hospital. She remained with altered mentation after the incidence.Her mental status didn't improve over the night and her ABG noted significant Acidemia with Hypercarbia, PH 7.14 and PCO2 137. Thus patient was intubated for respiratory support and protection of airway. She was referred to [facility] for further management. Past Medical History: Diagnosis Date Asthma CAD (coronary artery disease) Cerebral artery occlusion with cerebral infarction (CMS/HCC) (HCC) COPD (chronic obstructive pulmonary disease) (HCC) Hypertension Past Surgical History: Procedure Laterality Date APPENDECTOMY CHOLECYSTECTOMY COLONOSCOPY COLONOSCOPY CT CHEST ANGIOGRAM W AND/OR WO IV CONTRAST 07/26/2022 CT CHEST ANGIOGRAM W AND/OR WO IV CONTRAST 07/26/[address] [facility] [address] IMAGING No family history on file. [...] 20 min Stress: Stress Concern Present (07/26/2022) [place] [employer] - Occupational Stress Questionnaire Feeling of Stress : Very much Social Connections: Moderately Isolated (07/26/2022) Social Connection and Isolation Panel [NHANES] Frequency of Communication with Friends and Family: More than three times a week Frequency of Social Gatherings with Friends and Family: More than three times a week Attends Christianity Services: Never Active Member of Clubs or [...] Normal [] Scar/Lesion/Mass Inspection of teeth/lips/gums Dentition: [][place] Teeth []Dentures Lips/Gums: []Intact []Lesion Present Mucosa: [][place] [x]Moist []Dry Neck: External Appearance Overall Appearance: [...] ABGs: No results for input(s): PHART , MYF8CWS , PO2ART , VSM0HFM , SO2ART , R6BJHXSJ in the last 72 hours. Lactic Acid: [...] ch hypercarbic respiratory failure, was admitted to [facility] ICU for recurrent seizure x2 and ac on ch hypercarbic respiratory failure with pH 7/01 and PCO2:130 that did not respond to NIV and was intubated. Now care transferred to [facility] ICU for further management of recurrent seizure. [...] Conjunctiva []Injected [x]Non-Injected Pinnae []Normal []Other Dentitian [][place] Teeth []Dentures []Poor dentition []Edentulous Oral Mucosa [][place] []Moist []Dry Oral ETT [x]Present []Absent Neck: [...] sec REGALADO ([]RUE []RLE []LUE []LLE) Neurologic: [place]AT []Yes []No Corneal reflexes []Present []Absent Plantar [...] new evidence emerges. documented in this encounter [facility] 09-23-2023 Note HNO ID: [id number] Author: JOANIE BENITEZ PA-C Service: ? Author Type: Physician [employer] Leader Type: Progress Notes Filed: 09/25/2023 12:43 Note [...] it was advised that [place] to [place]term momwpg-vp-mdjwm she did not do. Past medical history prior to most recent episode is significant for fall with head trauma, ultimately requiring right craniotomy for subdural hematoma evacuation (02/08/2022) at [facility]. On CPAP for TIO, states she [...] Cancer Mother R/T LUNG CANCER Heart Father PR Cancer Sister LUNG Social History Tobacco Use [...] wheezing, rhonchi, rales (more content not included)... [facility] 09-23-2023 History of Present illness Narrative [...] it was advised that [place] return [place] for [place]-term knkygk-li-jkzag she did not do. Past medical history prior to most recent episode is significant for fall with head trauma, ultimately requiring right craniotomy for subdural hematoma evacuation (02/08/2022) at [facility]. On CPAP for TIO, states she [...] Cancer Mother R/T LUNG CANCER Heart Father PR Cancer Sister LUNG Social History Tobacco Use [...] diagnosis) Reinforced to patient that both Joan Older, CLEAN UP WORKER (the provider she usually sees) and [...] recent in 08/28 - was admitted to [facility] for monitoring. Never followed up with neurosurgeon [...] Joanie Benitez PA-C documented in this encounter [facility] 09-22-2023 Miscellaneous Notes Pt scheduled for appt [...] visit in primary care:(to be scheduled) Gisell Mendoza RN. documented in this encounter [facility] 09-13-2023 Miscellaneous Notes Patient has been identified [...] Ginny Moreland RN. documented in this encounter [facility] 09-03-2023 Miscellaneous Notes Patient has been identified [...] name and date of : Yes, Provider Joan Johnson Date 09/03/2023 Time 12:03 pm Pharmacy phones [...] not found Please advise. Thank you. Nelly Herrera. documented in this encounter [facility] 08-19-2023 Miscellaneous Notes Duplicate request. Lisette Corona LPN documented in this encounter [facility] 08-19-2023 Miscellaneous Notes Patient has been identified [...] Carmen Mendosa LPN. documented in this encounter [facility] 08-17-2023 Note HNO ID: [id number] Author: JOANIE BENITEZ PA-C Service: ? Author Type: Physician [employer] Leader Type: Progress Notes Filed: 08/18/2023 10:06 Note Text: CC: Patient presents with: ER F/U: [facility] 2..24; fall HPI Luiza May is a 67 year old female who presents today with her significant other, Nasim, for hospital follow-up and for scalp staple removal (her brother Antelmo joined towards the end of visit). Facility: [facility], transferred to [facility] Date of visit: 08/05/2023-08/11/2023 Reason for visit: Head injury, unwitnessed fall Hospital course: Pt was initially evaluated at [facility] on 08/05/23 for head injury following unwitnessed fall (associated w/ altered mental status the day prior), Patient typically sleeps with CPAP at night, however she was sleeping in a separate room-did not use her CPAP that evening. CT obtained at [facility] ED confirmed SDH so patient was transferred to [facility] for trauma and neurosurgery consult.. Per EMS, she struck her head without any report of loss of consciousness. The duration of hospital stay was spent being monitored in ICU. No surgical intervention was performed. Past medical history significant for fall with head trauma, ultimately requiring right craniotomy for 7 dural hematoma evacuation (02/08/2022) at [facility]. Diagnosis: Subdural hematoma Discharge: 08/11/23, was [...] Cancer Mother R/T LUNG CANCER Heart Father PR Cancer Sister LUNG Social History Tobacco Use Smoking status: Former Packs/day: 1.00 Years: 18.00 Additional pack years: 0.00 Total pack years: 18.00 Types: Cigarettes Quit date: 04/06/2006 Years (more content not included)... [facility] 08-17-2023 History of Present illness Narrative CC: Patient presents with: ER F/U: [facility] 2.1.24; fall HPI Luiza May is a 67 year old female who presents today with her significant other, Nasim, for hospital follow-up and for scalp staple removal (her brother Antelmo joined towards the end of visit). Facility: [facility], transferred to [facility] Date of visit: 08/05/2023-08/11/2023 Reason for visit: Head injury, unwitnessed fall Hospital course: Pt was initially evaluated at [facility] on 08/05/23 for head injury following unwitnessed fall (associated w/ altered mental status the day prior), Patient typically sleeps with CPAP at night, however she was sleeping in a separate room-did not use her CPAP that evening. CT obtained at [facility] ED confirmed SDH so patient was transferred to [facility] for trauma and neurosurgery consult.. Per EMS, she struck her head without any report of loss of consciousness. The duration of hospital stay was spent being monitored in ICU. No surgical intervention was performed. Past medical history significant for fall with head trauma, ultimately requiring right craniotomy for 7 dural hematoma evacuation (02/08/2022) at [facility]. Diagnosis: Subdural hematoma Discharge: 08/11/23, was [...] 1985 BREAST LUMPECTOMY HX 2005 DELIVERY ONLY , low cervical COLONOSCOPY FLX DX W/COLLJ [...] Cancer Mother R/T LUNG CANCER Heart Father PR Cancer Sister LUNG Social History Tobacco Use [...] ~1 inch, scant amount of dried blood/crusting. [place] removed without complication. Neck: negative Lungs: Lungs [...] 07/29/2022 Influenza Vaccine(1) due on 03/05/2023 Covid-19 Vaccine(2022- season) due on 03/05/2023 Advance Directive Discussion [...] Joanie Benitez PA-C documented in this encounter [facility] 08-13-2023 Note HNO ID: [id number] Author: ELI TAYLOR MA Service: ? Author Type: Hydro Sprayer Operator Type: Progress Notes Filed: 08/13/2023 08:40 Note Text: POPULATION HEALTH NAVIGATION OUTREACH Action/FYI TCM Hospital Discharge PCP Follow up. TCM Eligible until 08/24/23. August 13, 2023 8:40 AM Pt has been scheduled by office for tcm follow up Appointments for Next 60 Days Date Time Provider Location Dept Phone 08/17/2023 7:40 AM JOANIE BENITEZ [facility] [phone] 08/23/2023 10:[address] [facility] [place] [facility] [phone] 08/23/2023 11:00 AM [facility] [place] [facility] [phone] Patient Identified by Name and : NO [facility] 08-11-2023 Note HNO ID: [id number] Author: ROSALVA DUMONT MA Service: ? Author Type: Hydro Sprayer Operator Type: Progress Notes Filed: 08/11/2023 11:57 Note Text: POPULATION HEALTH NAVIGATION OUTREACH Action/FYI [facility] Hospital Discharge PCP Follow up. TCM Eligible until 08/24/23. Left VM; no MyChart Patient Identified by Name and : NO Outreach Outcome/Action Unable to reach patient: Left message Did you use a PCP flex slot to schedule this appointment? N/A Reason for Outreach HCC or suspected condition Payer: Payor: [email or web address] / Plan: [employer] MEDICARE ADVANTAGE HMO / [...] Vaccine(1) due on 03/05/2023 Covid-19 Vaccine(4 - 2022-24 season) due on 03/05/2023 Advance Directive Discussion Never done Depression Assessment due on 07/05/2023 Navigation Signature: Rosalva Dumont MA August 11, 2023 11:52 AM [facility] 08-11-2023 History of Present illness Narrative POPULATION HEALTH NAVIGATION OUTREACH Action/FYI [facility] Hospital Discharge PCP Follow up. TCM Eligible until 08/24/23. Left VM; no MyChart Patient Identified by Name and : NO Outreach Outcome/Action Unable to reach patient: Left message Did you use a PCP flex slot to schedule this appointment? N/A Reason for Outreach HCC or suspected condition Payer: Payor: [employer] / Plan: [employer] MEDICARE ADVANTAGE HMO / Product Type: HMO [...] TCM Home Visit Referral Source of Stratification: [facility] Hospital Admission Status: Discharged Readmission Risk Score: [...] Network Status: In-Network Discharge Pt discharged from [facility] on 08/10/23. Admitted for: Subdural hematoma (HCC) Contact made with patient: Yes Hi my name is Jordan Rowe RN and I am calling from the [facility] on behalf of your PCP, Maryam Franco [...] like to speak with a social work food court team member to help give you support for any [...] I will send your request to a appointment manager who will contact and assist you with that appointment. This will give you an opportunity to ask any questions or address any concerns you may have with your PCP. Inform the patient that if they have any questions or concerns prior to that appointment, to call their PCP's office right away. ACTION TAKEN: Patient desires an appointment - [facility]ed to [facility] [[phone]] for scheduling telehealth visit (telephonic, virtual visit, [...] Ordered -: No documented in this encounter [facility] 08-11-2023 Note HNO ID: [id number] Author: JORDAN ROWE RN Service: ? Author Type: Registered Nurse Type: Progress Notes Filed: 08/11/2023 10:11 Note Text: TCM Home Visit Referral Source of Stratification: [facility] Hospital Admission Status: Discharged Readmission Risk Score: [...] worsening symptoms. Denies headaches or blurry vision. [place] WNL. Denies drainage or fever. Patient gets [...] Network Status: In-Network Discharge Pt discharged from [facility] on 08/10/23. Admitted for: Subdural hematoma (HCC) Contact made with patient: Yes Hi my name is Jordan Rowe RN and I am calling from the [facility] on behalf of your PCP, Maryam Franco [...] like to speak with a social work food court team member to help give you support for any [...] I will send your request to a appointment manager who will contact and assist you with that appointment. This will give you an opportunity to ask any questions or address any concerns you may have with your PCP. Inform the patient that if they have any questions or concerns prior to that appointment, to call their PCP's office right away. ACTION TAKEN: Patient desires an appointment - Routed to [facility] [[id number]] for scheduling telehealth visit (telephonic, virtual visit, [...] your hands re (more content not included)... [facility] 08-11-2023 Note HNO ID: [id number] Author: SETH CHAWLA RPh Service: ? Author [...] name and . Summary: -Pt discharged from [facility] on 08/10/23. -Medication review done: Partial medication [...] BP Readings: Date: BP: 08/05/2023 151/97 07/14/2023 12068 05/06/2023 Potassium Date Value Ref Range Status 08/10/2023 [...] BP Readings: Date: BP: 08/05/2023 151/97 07/14/2023 12068 05/06/[address] (PROTONIX) 40 mg tablet Take [...] for up to 90 days. Preferred pharmacy: [facility] [place] [address] [address] - [phone] [address] [facility] [address] Estimated Creatinine Clearance: 78.3 mL/min (based on SCr of 0.63 mg/dL). Estimated Glomerular Filtration Rate (mL/min/1.73m?) Date Value 08/10/2023 97 eGFR- (no units) Date Value 11/16/2020 >60 Additional follow up: Next 5 Appointments Date and Time Provider Department Dept Phone 08/23/2023 10:[address] [facility] NE[facility]/SPINE RADIO CT SCAN [place] DISP[facility] [phone] 08/23/2023 11:00 AM Carlton Osborn [facility] [phone] Interventions Made: None Pharmacist Recommendations Made None Care Coordination: None at this time Time spent on patient: 15-30 (more content not included)... [facility] 08-11-2023 Note Patient Outreach (AM BCMG) -------- LUIZA MAY ([id number]) 1955 F Date Time Provider Department 08/11/23 [facility] ROWE [facility] During your visit today, we recorded the following information about you: Jordan Rowe RN 08/11/2023 10:11 AM Signed TCM Home Visit Referral Source of Stratification: [facility] Hospital Admission Status: Discharged Readmission Risk Score: [...] Network Status: In-Network Discharge Pt discharged from [facility] on 08/10/23. Admitted for: Subdural hematoma (HCC) Contact made with patient: Yes Hi my name is Jordan Rowe RN and I am calling from the [facility] on behalf of your PCP, Maryam Franco [...] like to speak with a social work food court team member to help give you support for any [...] I will send your request to a appointment manager who will contact and assist you with that appointment. This will give you an opportunity to ask any questions or address any concerns you may have with your PCP. Inform the patient that if they have any questions or concerns prior to that appointment, to call their PCP's office right away. ACTION TAKEN: Patient desires an appointment - Routed to [facility] [[id number]] for scheduling telehealth visit (telephonic, virtual visit, or Facetime) within 7 days of discharge with PCP care team. Indicate hospital follow-up appointment needed within 7 days in Provider/FYI box. End Outreach. Your doctor would like us to remind you of the recommendations regarding the coronavirus (Covid19) outbreak: Avoid publi (more content not included)... [facility] 08-11-2023 Note Patient Outreach (PH RXRF) -------- LUIZA MAY ([id number]) 1955 F Date Time Provider Department 08/11/23 SETH CHAWLA [facility] During your visit today, we recorded the following information about you: Seth Chawla [facility] 08/11/2023 11:59 AM Signed TRANSITION CARE MANAGEMENT [...] name and . Summary: -Pt discharged from [facility] on 08/10/23. -Medication review done: Partial medication [...] Date: BP: 08/05/2023 151/97 07/14/2023 120/68 05/06/2023 122 Potassium Date Value Ref Range Status 08/10/2023 [...] Date: BP: 08/05/2023 151/97 07/14/2023 120/68 05/06/[address] (PROTONIX) 40 mg tablet Take [...] for up to 90 days. Preferred pharmacy: - [facility] [place] [address] - [address] - [phone] [facility] [address] Estimated Creatinine Clearance: 78.3 mL/min (based on SCr of 0.63 mg/dL). Estimated Glomerular Filtration Rate (mL/min/1.73m?) Date Value 08/10/2023 97 eGFR- (no units) Date Value 11/16/2020 >60 Additional follow up: Next 5 Appointments Date and Time Provider Department Dept Phone 08/23/2023 10:[address] [facility]SP[facility] RADIO [facility] SCAN [place] DISP[facility] [phone] 08/23/2023 11:00 AM [place] (more content not included)... [facility] 08-10-2023 Note HNO ID: [id number] Author: EMMA DEVLIN RN Service: Care Management Author Type: Registered Nurse Type: Samantha Mgt Progress Note Filed: 08/10/2023 15:24 Note [...] Care Physician Name/Phone: summary of care to PCPMaryam Additional Information: Patient declined recommended HHC and is discharging home with self care. Significant other Dex to transport and bring portable O2 from patient's home. SIGNATURE: Emma Devlin RN PATIENT NAME: Luiza May DATE: August 10, 2023 TIME: 3:24 PM CONTACT #: [phone] [facility] 08-10-2023 Note HNO ID: [id number] Author: EMMA DEVLIN RN Service: Care Management Author Type: Registered Nurse Type: Care Mgt Progress Note Filed: 08/10/2023 15:23 Note Text: CARE MANAGEMENT PROGRESS NOTE SERVICE DATE: 08/10/2023 SERVICE TIME: 3:21 PM LOS: 5 days IMM Follow Up Copy Given: Yes Copy given to:: Patient Method: In Person Patient declined copy of letter stating she understands her rights and is agreeable to discharge. [place] of Choice Given: No Reason Not Given: Patient refused Met with patient in room to discuss therapy recs for home therapy. Patient declines stating she had it the last time she was discharged and doesn't feel she needs it now. Advised patient that if she changes her mind upon returning home that she will need to contact her PCP to arrange C. She understands and is agreeable. SIGNATURE: Emma Devlin RN PATIENT NAME: Luiza May DATE: August 10, 2023 TIME: 3:21 PM PAGER/CONTACT #: [phone] [facility] 08-10-2023 Note HNO ID: [id number] Author: ANDRE MARTINEZ, Research Coordinator Service: ? Author Type: Research Type: Progress Notes Filed: 08/10/2023 15:21 Note Text: -------- Summary: IRB #[id number]: Traumatic Brain Injury Patient Registry - Consent Discussion -------- Study #[id number]: Traumatic Brain Injury Patient Registry PI: Jessika Nicole MD Visit: Consent Visit Date: August 10, 2023 Patient Name: Luiza May Date of : 1955 MRN/E #: [id number] Patient followed up with for #23-1248: Traumatic Brain Injury Patient Registry. Study explained/reviewed [...] family. Andre Martinez, Research Coordinator Pager # [phone] [facility] 08-10-2023 Note HNO ID: [id number] Author: CRYS HAYWOOD PA-C Service: General Surgery Author Type: Physician [place] [employer] Leader Type: Progress Notes Filed: 08/10/2023 09:07 Note Text: Trauma Surgery Progress Note SERVICE DATE: 08/10/2023 Trauma Service Pager: For questions or concerns Mon-Fri 6a-5p please page [phone]. After 5pm and on Weekends and Holidays, please page [phone] if in ICU or [phone] if on RNF. SUBJECTIVE: NAEON. Patient denies [...] Cannula IANDO: Date 08/09/23699 - 08/10/2365808/10/23699 - 08/11/23 0659 Shift 1063-8955 5460-7102 0585-4699 24 Hour Total 8821-4113 5037-7928 1584-5876 24 Hour Total INTAKE PO 540 240 [...] (HCC) 08/05/2023 Acute on chronic respiratory acidosis (HCC) 08/07/2023 Hypophosphatemia 08/07/2023 Hypomagnesemia 08/07/2023 Hypokalemia 08/07/2023 Fall 08/06/2023 Scalp laceration, initial encounter 08/06/2023 Chronic hypercapnic respiratory failure (HCC) 08/19/2022 COPD (chronic obstructive pulmonary disease) (HCC) 08/11/2016 Assessment: 67 year old female s/p mechanical GLF on 08/05/2023 (Level II) Imaging performed: 08/05/2023 - CT HNTL, CXR, PXR, XR L shoulder 08/06/2023 - CXR, repeat CT brain Traumatic Injuries: Small volume acute parafalcine subdural hemorrhage without mass effect Scalp laceration Operations/Procedures: 1. 08/05/2023 - Scalp laceratio (more content not included)... [facility] 08-09-2023 Note HNO ID: [id number] Author: ANDRE MARTINEZ, Research Coordinator Service: ? Author Type: Research Type: Progress Notes Filed: 08/10/2023 15:08 Note Text: -------- Summary: IRB#[id number]: Traumatic Brain Injury Patient Registry - Consent Discussion -------- Study #[id number]: Traumatic Brain Injury Patient Registry PI: Jessika Nicole MD Visit: Consent Visit Date: August 09, 2023 Patient Name: Luiza May Date of : 1955 MRN/E #: [id number] Patient approached for consideration for #23-1248: Traumatic Brain Injury Patient Registry. Patient stated now was not a good time to discuss the study. Research will follow up at another time. Andre Martinez, Research Coordinator Pager # [phone] [facility] 08-09-2023 Note HNO ID: [id number] Author: CHRYSTAL LEWIS, FINESSE Service: Care Management Author Type: Registered Nurse [...] Status: Inpatient Insurance Provider[place] [employer] [place] [facility] [place] Planning requested by: Per Department Practice [...] 2 LPM, continuous Current Post-Acute Service(s) Provider: Evan Discharge Planning Patient Goal(s): General wellness [place] of Choice Explained: not yet Are you [...] Post-Acute Discharge Plan: Pt from home with StephanieIrish Moore. Pt has cane/walker and O2. [facility] is O2 provider. Pt with CPAP and nebulizer. Pt was up to chair this AM. Anticipate wean to 2L O2- home setting and DC home. SIGNATURE: Chrystal Lewis RN PATIENT NAME: Luiza May DATE: August 09, 2023 TIME: 10:50 AM CONTACT #: [phone] [facility] 08-09-2023 Note HNO ID: [id number] Author: SPENCER JIMENEZ MD Service: General Surgery [...] August 09, 2023 TIME: 3:20 PM Pager: [phone] -------- Trauma Surgery Progress Note SERVICE DATE: 08/09/2023 Trauma Service Pager: For questions or concerns Mon-Fri 6a-5p please page [phone]. After 5pm and on Weekends and Holidays, please page [phone] if in ICU or [phone] if on RNF. SUBJECTIVE: NAEON. On [place] [...] Cannula IANDO: Date 08/08/23699 - 08/09/2365808/09/23699 - 08/10/2359 Shift 0854-5683 6165-0525 6687-3553 24 Hour Total 1307-8271 2842-5188 5696-0584 24 Hour Total INTAKE PO 360 180 240 780 PO 360 180 240 780 Shift Total 360 180 240 780 OUTPUT Urine 1899 1899 Output ( External Collection Device 08/06/23 0730 [facility]) 1900 Shift Total 18990 Weight (kg) 70.7 70.7 66.3 66.3 66.3 [...] 6 H PRN Labs: Recent Labs 08/09/23 0356 08/08/23201708/08/23 1041 08/08/23 0219 08/07/23 1520 08/07/238 08/06/23201008/06/232010 NA 143 -- [...] bilat. No w (more content not included)... [facility] 08-08-2023 Note HNO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 me records of her recent prison stay * Telephone Encounter - Shelly Finney LPN - 02/03/2022 11:22 AM EDT Jacqui calling for Home Health orders: Asking for Nursing, Pt/Ot and Speech therapy. Being discharged from [facility] on 02/09/2022 documented in this encounterSt. Mary'S [facility]08-08-2022 Nurse Progress note Eating-06 Independent Oral hygiene-06 Independent Toileting hygiene-04 Supervision/Touching assistance Shower/bathe self-03 Partial/Moderate assistance Upper body dressing-04 Supervision/Touching assistance Lower body dressing-04 Supervision/Touching assistance Putting on/Taking off footwear-06 Independent Roll left and right-05 Setup Sit to lying-05 Setup Lying to sitting on side of bed-05 Setup Sit to stand-04 Supervision/Touching assistance Chair/bqz-tv-vrfzq transfers-04 Supervision/Touching assistance Toilet transfers-04 Supervision/Touching assistance [...] (Supervision/Touching assistance) was met. 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 Fax confirmation was received. Authorization [id number]. Digitally Signed by FINESSE Lema on 02/09/2022 01:20 PM [facility] [id number] Hospital Discharge instructions Patient Education 02/09/2022 09:11:34 [...] Follow these instructions at home: Medicines Take jpwy-yhk-addkftz and prescription medicines only as told by [...] to keep your urine pale yellow. ?Take hpzu-fxg-owlbsrl or prescription medicines. ?Eat foods that are [...] and water are not available, use hand raspberry checker. ?Change your dressing as told by your [...] is common to have head pain. Take yymo-sbw-zcltpdh and prescription medicines only as told by [...] 12/06/2019 Document Revised: 01/10/2020 Document Reviewed: 12/06/2019 [employer] Patient Education 2019 [employer]. 02/09/2022 09:10:16 Subdural Hematoma Subdural Hematoma A [...] care provider about what to expect. Take gmdb-ogt-mpchhgp and prescription medicines only as told by your health care provider. Do not take blood thinners or NSAIDs unless your health care provider approves. These include aspirin, ibuprofen, naproxen, and warfarin. Keep your home environment safe to reduce the risk of falling. Keep all follow-up visits as told by your health care provider. This is important. Where to find more information National [place] of Neurological Disorders and Stroke: www.ninds.nih.gov [place] [employer] Neu[employer] (AAN): www.aan.com Brain Injury [...] 05/08/2005 Document Revised: 05/22/2019 Document Reviewed: 05/22/2019 [employer] Patient Education 2020 [employer]. 02/09/2022 09:09:09 Fall Prevention in the Home, [...] Use night-lights. Place frequently used items in azjf-xx-scdcw places. Lower the shelves around your home [...] of the way. Do not use floor equatorial guinean or wax that makes floors slippery. If [...] include working with a physical therapist or athletic trainer to improve your strength, balance, and endurance. Where to find more information Centers for Disease Control and Prevention, SONIA: https://www.cdc.gov National [place] on Aging: https://qu6ddls.saira.nih.gov Contact a health care provider if: You [...] 06/11/2003 Document Revised: 06/03/2018 Document Reviewed: 02/03/2018 [employer] Patient Education 2020 [employer]. 02/09/2022 09:09:00 Chronic Obstructive Pulmonary Disease, Nqpv-oo-Slrd Chronic Obstructive Pulmonary Disease Chronic obstructive pulmonary [...] as told by your doctor. Only take ojda-riz-fmuheiz or prescription medicines as told by your [...] Document Reviewed: 02/15/2014 ExitCare Patient Information 2015 [facility], [facility]. This information is not intended to replace advicegiven to you by your health care provider. Make sure you discuss any questions you have with your health care provider. Follow Up Care 01/27/2022 12:11:01 With:MARYAM FRANCO MD Address: [address] [place] [address]- When:02/17/2022 15:40:00 Comments:Take Discharge Instructions to Dr Visit...if Home Care does not remove sutures- please ask at this appt for Dr to remove With:SEVERO JURADO MD Address: [address] [place] [address]- [phone] When:04/21/2022 13:40:00 Comments:Neurosurgical follow up Rian Jaramillo 08-08-2022 Note Discharge Instructions Thank you for allowing Rian to assist you with your healthcare needs. [...] up Where: [address] [place] [address]- [phone] Follow Up with MARYAM FRANCO MD When 02/17/2022 03:40 PM EDT Why: Take Discharge Instructions to Dr Visit...if Home Care does not remove sutures- please ask at this appt for Dr to remove Where: [address] [place] [address]- The Following Activity and Diet Have Been [...] Therapy Instruction: Full weight bearing, Provided by [facility] [phone] Consult Home Health - RN - Ordered -- 02/09/22 9:13:00 EDT, Reason: Disease management Medication management Consult Home Health - Film Mounter - Ordered -- 02/09/22 9:13:00 EDT, Reason: [...] (2) times daily before meals Pickup at [facility] New polyethylene glycol 3350 (MiraLax oral powder for reconstitution) by mouth Once a day as needed for Constipation Changed DULoxetine (DULoxetine 60 mg oral delayed release capsule) 1 cap by mouth Once a day Pickup at [facility] Changed albuterol (albuterol MDI (90 mcg/ inh) CFC free inhalation aerosol) 2 puff(s) by inhalation Four (4) times a day as needed for Shortness of breath (SOB) Pickup at [facility] Changed bisacodyl (bisacodyl 10 mg rectal suppository) 1 suppository(ies) in the rectum Once a day as needed for Constipation Changed escitalopram (escitalopram 10 mg oral tablet) 1 tab(s) by mouth Once a day Pickup at [facility] Changed hydrOXYzine (hydrOXYzine hydrochloride 25 mg oral tablet) 2 tab(s) by mouth Every 6 hours as needed for Anxiety Duration: 30 Days Pickup at [facility] Changed oxyCODONE (oxyCODONE 5 mg oral tablet ( IMMEDIATE release )) 1 tab(s) by mouth Every 6 hours as needed for Pain Subdural hematoma Duration: 5 Days Pickup at [facility] Changed senna (senna (sennosides) 8.6 mg oral tablet) 1 tab(s) by mouth Once a day Changed zolpidem (Ambien 5 mg oral tablet) 1 tab(s) by mouth Daily at bedtime as needed for Sleep Duration: 7 Days Pickup at [facility] Unchanged fluticasone/ umeclidinium/ vilanterol (Trelegy Ellipta 100 mcg-62.5 mcg-25 mcg/ inh inhalation powder) 1 puff(s) by inhalation Once a day at the same time every day. Following administration, rinse mouth with water after use (do not swallow). Pharmacy Information [facility]: [address] [place], [place] [id number] [phone] What How Much When Comments Stop Taking [...] Follow these instructions at home: Medicines Take gomr-iak-tiutcyq and prescription medicines only as told by [...] keep your urine pale yellow. ? Take ffsd-zqh-cgcwgrz or prescription medicines. ? Eat foods that [...] and water are not available, use hand raspberry checker. ? Change your dressing as told by [...] is common to have head pain. Take qisf-png-gphndmo and prescription medicines only as told by [...] 12/06/2019 Document Revised: 01/10/2020 Document Reviewed: 12/06/2019 Aicent Patient Education 2020 [employer]. Subdural Hematoma A subdural hematoma is [...] care provider about what to expect. Take siov-nsr-sgonuhi and prescription medicines only as told by your health care provider. Do not take blood thinners or NSAIDs unless your health care provider approves. These include aspirin, ibuprofen, naproxen, and warfarin. Keep your home environment safe to reduce the risk of falling. Keep all follow-up visits as told by your health care provider. This is important. Where to find more information National [place] of Neurological Disorders and Stroke: www.ninds.nih.gov [place] [employer] Neurology (AAN): www.aan.com Brain Injury [...] 05/08/2005 Document Revised: 05/22/2019 Document Reviewed: 05/22/2019 [employer]ent Patient Education 2020 [employer]. Fall Prevention in the Home, Adult Falls [...] Use night-lights. Place frequently used items in txhg-ui-kvzgw places. Lower the shelves around your home [...] of the way. Do not use floor equatorial guinean or wax that makes floors slippery. If [...] include working with a physical therapist or athletic trainer to improve your strength, balance, and endurance. Where to find more information Centers for Disease Control and PreventionSONIA: https://www.cdc.gov National [place] on Aging: https://uv7mvet.saira.nih.gov Contact a health care provider if: You [...] 06/11/2003 Document Revised: 06/03/2018 Document Reviewed: 02/03/2018 [employer] Patient Education 2020 [employer] Chronic Obstructive Pulmonary Disease Chronic obstructive [...] as told by your doctor. Only take obyd-eow-ziejmuq or prescription medicines as told by your [...] Document Reviewed: 02/15/2014 ExitCare Patient Information 2015 [employer]. This information is not intended to replace advicegiven to you by your health care provider. Make sure you discuss any questions you have with your health care provider. Additional Information VACCINATE! IT SAVES LIVES! Members of the community who have not yet received the COVID-19 vaccine and would like to receive it can visit one of [facility] vaccine clinics. There are many vaccine clinic locations within the [facility]. For locations and available times, please visit [email or web address]/. It is important to note that some COVID mobile vaccine clinics are held outdoors and may be canceled in rainy or stormy conditions. To learn more about pediatric vaccinations (ages 5-11), we invite you to visit the [facility] webpage. [email or web address]/[email or web address]-[email or web address]-[email or web address] [email or web address].htmlTo learn more about the COVID-19 vaccine, we invite you to visit the [facility] website for a list of frequently asked questions. [email or web address] e-solution/[email or web address]-[email or web address]/[email or web address]-Drnrvaszta _[email or web address]-Questions.pdf [employer] Patient Portal Access Instructions: Stay connected with your healthcare team and access your personal medical information anytime with the [employer] Patient Portal.If you would like a full copy of your medical records, please contact the [facility] Medical Records Department, Wednesday through Wednesday between 8a.m. and 4:30p.m. Please follow the directions below to access the portal: 1.Access the email account you provided upon registration to the hospital.2.Look for an invitation email from [facility].3.Open the email and access the invitation link: Accept Invitation to [employer]4.Fill in the required smith to create your account. Sign into www.[employer]vant e-solution with your username and password that you [...] you will allow to register on the [employer] Patient Portal for access to your information. You can also access the [employer] Patient Portal on the [employer] bacilio. Simply click on Health Records under [employer].iota and then click on the [employer] logo. HOW TO SAFELY DISPOSE OF PRESCRIPTION [...] Call your local pharmacy or go to [email or web address] to find one close to you.3.Make use of household items: Use cat litter or old coffee grounds to dispose medications if other options arenot available. Mix your drugs with these household products, seal them in an airtight container andthrow it into the garbage. Call [facility]: [phone] to be sure your drugs can be [...] the Home, Adult Chronic Obstructive Pulmonary Disease, Xmlc-fi-Vmff Medication Leaflets My discharge plan and instructions have been reviewed and explained to me and I,LUIZA MAY understand my current condition and have read and understand these discharge instructions. I have received a written copy of the plan/instructions. If I have questions, I am aware that I should contact my doctor. 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 Subdural hematoma (S06.5X9A - ICD-10-CM) Ordered: oxyCODONE 5 mg oral tablet ( IMMEDIATE release); Dose : 5 mg = 1 tab(s), Oral, q6hr, PRN Pain, X 5 day(s), # 10 tab(s), 0 Refill(s), 02/14/22 8:46:00 EDT, Pharmacy: [facility], Subdural hematoma, 160, cm, 01/27/22 19:40:00 [...] the circulatory system (Z82.49 - ICD-10-CM) Other salvage determiner (current) drug therapy (Z79.899 - ICD-10-CM) Additional Orders: Ordered: Ambien 5 mg oral tablet,Dose : 5 mg = 1 tab(s), Oral, qHS, PRN Sleep, X 7 day(s), # 7 tab(s), 0 Refill(s), 02/16/22 8:48:00 EDT, Pharmacy: [facility], 160, cm, 01/27/22 19:40:00 EDT, Height, [...] qDay, # 30 cap(s), 0 Refill(s), Pharmacy: [facility], 160, cm, 01/27/22 19:40:00 EDT, Height [...] BIDAC, # 60 tab(s), 0 Refill(s), Pharmacy: [facility], 160, cm, 01/27/22 19:40:00 EDT, Height [...] (SOB), # 6.7 gram(s), 0 Refill(s), Pharmacy: [facility], 160, cm, 01/27/22 19:40:00 EDT, Height [...] qDay, # 30 tab(s), 0 Refill(s), Pharmacy: [facility], 160, cm, 01/27/22 19:40:00 EDT, Height Ordered: hydrOXYzine hydrochloride 25 mg oral tablet,Dose : 50 mg = 2 tab(s), Oral, q6h, PRN Anxiety, X 30 day(s), # 30 tab(s), 0 Refill(s), 03/11/22 8:46:00 EDT, Pharmacy: [facility], 160, cm, 01/27/22 19:40:00 EDT, Height [...] Initially admitted to acute rehabilitation 01/27/2022 from [facility]. She will visit status post cranioplasty [...] Discharge Instructions to Dr Visit Where: [address] [place] [address]- Follow Up with SEVERO JURADO MD When Where: [address] [place] [address]- [phone] Follow Up Appointments No qualifying data available. Follow Up Labs/Studies Discharge Labs No Follow-up Labs Discharge Studies No Follow-up Studies Discharge Diet No qualifying data available. Discharge Activity No qualifying data available. Condition on Discharge Stable Discharge Disposition Home with spouse Information Provided To Patient and family Time Spent Greater than 35 minutes Digitally Signed by ANALY LARSON DO on 02/09/2022 09:01 AM [facility]44-[facility]-59[facility] Nurse Progress note Nursing GG Entered On: [...] Completed Sit to stand : Not Completed Chair/dra-fm-taiac transfer : Not Completed Walk 10 ft : Not Completed Walk 50 ft with 2 turns : Not Completed Walk 150 ft : Not Completed Picking up object : Not Completed Mildred Molina RN - 02/09/2022 1:56 EDT Digitally Signed by Mildred Molina RN on 02/09/2022 01:56 AM Rian JaramilloNrprojoy18-31-7911 Nurse Progress note Nursing GG Entered On: 02/08/2022 13:34 EDT Performed On: 02/08/2022 13:34 EDT by FINESSE Hollis Nursing 's OT GG Grid Eating : Independent Oral Hygiene : Independent Toilet Hygiene : Partial/Moderate Toilet Transfer : Partial/Moderate FINESSE Hollis - 02/08/2022 13:34 EDT Digitally Signed by FINESSE Hollis on 02/08/2022 01:34 PM [facility]ian JaramilloHcbmulsx09-72-2339 Nurse Progress note Nursing GG Entered On: [...] Completed Sit to stand : Not Completed Chair/bba-xu-amxgj transfer : Not Completed Walk 10 ft : Not Completed Walk 50 ft with 2 turns : Not Completed Walk 150 ft : Not Completed Picking up object : Not Completed Mildred Molina RN - 02/08/2022 1:49 EDT Digitally Signed by Mildred Molina RN on 02/08/2022 01:49 AM Rian JaramilloSmtnkyfh86-50-2965 Nurse Progress note Nursing GG Entered On: 02/07/2022 15:06 EDT Performed On: 02/07/2022 15:06 EDT by Rosalva James RN Nursing GG's OT GG Grid Eating : Independent Rosalva James RN - 02/07/2022 15:06 EDT Digitally Signed by Rosalva James RN on 02/07/2022 03:06 PM [facility] CenterXhdwavvy04-25-4895 Nurse Progress note Nursing GG Entered On: 02/07/2022 14:59 EDT Performed On: 02/07/2022 14:58 EDT by Rosalva James RN Nursing GG's OT GG Grid Eating : Independent Rosalva James RN - 02/07/2022 14:58 EDT Digitally Signed by Rosalva James RN on 02/07/2022 02:58 PM [facility]aghwyjc[facility]-9447 Nurse Progress note Nursing GG Entered On: 02/06/2022 12:22 EDT Performed On: 02/06/2022 12:21 EDT by Ofe Larios RN Nursing GG's OT GG Grid Eating : Independent Ofe Larios RN - 02/06/2022 12:21 EDT Digitally Signed by Ofe Larios RN on 02/06/2022 12:21 PM [facility] CenterTtlwdaoq50-88-9383 Physical medicine and rehab Progress note Date [...] UD 0.5 mg 2.5 mL, Inhalation, BIDRT [facility] [place] 1 EA, Miscellaneous, Daily pantoprazole [...] Alcohol abuse 7. Anemia Orders: Diet per Quality Assurance Monitor Chassis neosporin and dressing to incision Time Spent 25 min Digitally Signed by ANALY LARSON DO on 02/06/2022 10:23 AM [facility]ian JaramilloShanqgtk04-23-1994 Nurse Progress note Nursing GG Entered On: 02/05/2022 16:35 EDT Performed On: 02/05/2022 16:35 EDT by Sandrine Bansal RN Nursing GG's OT GG Grid Eating : Independent Sit to stand : Partial/Moderate Chair/egf-vd-gqgqg transfer : Partial/Moderate Sandrine Bansal RN - 02/05/2022 16:35 EDT Digitally Signed by Sandrine Bansal RN on 02/05/2022 04:35 PM Rian JaramilloLuxrunct52-53-7483 Nurse Progress note Nursing GG Entered On: 02/05/2022 9:55 EDT Performed On: 02/05/2022 9:55 EDT by Sandrine Bansal RN Nursing GG's OT GG Grid Eating : Independent Oral Hygiene : Set up & Clean up Sandrine Bansal RN - 02/05/2022 9:55 EDT Digitally Signed by Sandrine Bansal RN on 02/05/2022 09:55 AM [facility]ian JaramilloAtlociyj13-76-6383 Physical medicine and rehab Progress note Rehab [...] Rate18(FEB 05 02:04)16(FEB 04 13:40)20(FEB 04 09:53) LRJ492(FEB 05 02:04)110(FEB 04 15:57)120(FEB 05 02:04) DBP68(FEB [...] in the presence of Dr. Marsha JONES. Dr. Marsha Sepulveda DO , personally performed the services described in this documentation, as described by Lucrecia Aguilera RN in my presence and it is both accurate and complete. Digitally Signed by ANALY LARSON DO on 02/06/2022 07:52 AM Rian JaramilloDzcnmtpp17-01-7972 Nurse Progress note Nursing GG Entered On: [...] Completed Sit to stand : Not Completed Chair/hld-gw-canlb transfer : Not Completed Walk 10 ft : Not Completed Walk 50 ft with 2 turns : Not Completed Walk 150 ft : Not Completed Picking up object : Not Completed Vianca Wynn RN - 02/05/2022 2:21 EDT Digitally Signed by Vianca Wynn RN on 02/05/2022 02:21 AM [facility]ian JaramilloXezuwcdq93-33-3971 Nurse Progress note RECEIVED PHONE MESSAGE FROM FIDEL GU CHARGEBACK ANALYST WITH NEXT REVIEW DATE- 02/09. Digitally Signed by FINESSE Burden on 02/04/2022 08:54 AM [facility]ian JaramilloBqtpizzb27-87-0719 Physical medicine and rehab Progress note Rehab [...] discomfort. Medications (25) Active Scheduled: (8) balsam Lena-castor oil topical 87 mg-788 mg/g oint 60g 1 bacilio, Topical, BID budesonide 0.25 mg/2 mL Susp UD 0.25 mg 2 mL, Inhalation, BIDRT duloxetine [address] capsule 60 mg 1 cap(s), Oral, qDay escitalopram 5 mg tablet 5 mg 1 tab(s), Oral, qDay ipratropium 0.02% (0.5mg/2.5mL) UD 0.5 mg 2.5 mL, Inhalation, BIDRT [facility] [place] order 1 EA, Miscellaneous, Daily pantoprazole [...] hrs)__Last Charted Minimum Maximum Temp36.6(FEB 03 09:26)36.6(FEB 03 09:26)36.6(FEB 03:) Resp Rate20(FEB 03 16:42)18(FEB 03 09:26)20(FEB 03 16:42) LZD545(FEB 03 16:42)91(FEB 03 09:26)104(FEB 03 16:42) DBPL 56(FEB 03 16:42)L 56(FEB 03 16:42)60(FEB 03 09:26) Physical Exam: General: No acute distress. Respiratory: [...] in the presence of Dr. Marsha JONES. Dr. Marsha Sepulveda DO , personally performed the services described in this documentation, as described by Lucrecia Aguilera RN in my presence and it is both accurate and complete. Digitally Signed by ANALY LARSON DO on 02/05/2022 12:40 PM [facility] CenterShsbsdyx74-96-7634 Nurse Progress note Nursing GG Entered On: 02/04/2022 3:11 EDT Performed On: 02/04/2022 3:11 EDT by Milderd Molina RN Nursing GG's OT GG Grid Toilet Hygiene : Independent Toilet Transfer : Supervision/Touching Assist Mildred Molina RN - 02/04/2022 3:11 EDT Digitally Signed by Mildred Molina RN on 02/04/2022 03:11 AM [facility] CenterFsyafhom59-11-2393 Note REFERRING PHYSICIAN: Analy Larson DO. CONSULTING PSYCHOLOGIST: Lai Phillips, PhD. REASON FOR REFERRAL: Psychological exam and opinion on medication adjustments. HISTORY OF PRESENT ILLNESS: Ms. May is a 66-year-old white female admitted to [facility] 01/27/2022 from [facility] after being found unconscious on the floor [...] balance and coordination. Ms. May lives in [place] with her significant other of 20 years, Mr. Moore. The patient was previously and . Has 3 kids. 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 She quit high school in the 11th grade when she became . CONCLUSIONS: Ms. May is a 66-year-old right-handed white female admitted to [facility] 01/27/2022 from [facility] after being found by her partner [...] to 12.5 mg at night as the Ambien elle has helped restore better sleep. If tolerated, [...] Panic disorder, probably with generalized ruminative anxiety, ubfcirue-ah-nfnlug. 3. Depression, probably recurrent, currently mild. LAI PHILLIPS, PhD GM/NTS JOB#: [id number] DICTATION ID#: [id number] Digitally Signed by LAI PHILLIPS PhD on 02/04/2022 01:28 PM [facility] CenterLodersbu34-39-1274 Physical medicine and rehab Progress note Rehab [...] Rate18(FEB 02 20:10)18(FEB 02 08:31)18(FEB 02 08:31) [id number](FEB 03 06:06)L 89(FEB 02 16:28)125(FEB 02 21:39) [...] ANALY LARSON DO on 02/03/2022 02:32 PM Rian Giang-01-2022 Nurse Progress note Nursing GG Entered On: 02/02/2022 17:55 EDT Performed On: 02/02/2022 17:55 EDT by Jordan Morales RN Nursing GG's OT GG Grid Eating : Set up & Clean up Toilet Transfer : Partial/Moderate Sit to lying : Partial/Moderate Lying to sitting on side of bed : Partial/Moderate Sit to stand : Partial/Moderate Chair/hiz-fz-sqnhi transfer : Partial/Moderate Jordan Morales RN - 02/02/2022 17:55 EDT Digitally Signed by Jordan Morales RN on 02/02/2022 05:55 PM Rian JaramilloWizwaowj49-23-2315 Nurse Progress note REVIEW FAXED TO FIDEL Digitally Signed by FINESSE Burden on 02/02/2022 11:12 AM Rian Giang-01-2022 Physical medicine and rehab Progress note Rehab [...] Patti UD 3 mL, Inhalation, QIDRT balsam Lena-castor oil topical 87 mg-788 mg/g oint 60g [...] Rate18(FEB 01 23:17)18(FEB 01 07:34)20(FEB 01 15:57) BBW252(FEB 01 23:17)116(FEB 01 23:17)126(FEB 01 07:34) DBP60(FEB [...] considered. Therapy notes reviewed. Discussed with staff. [facility]/ reviewed and unchanged Note: This dictation was created with assistance of voice recognition software. Phonic and/or minorgrammatical errors may exist. Lucrecia Sepulveda RN, am scribing for, and in the presence of Dr. Marsha JONES. Dr. Marsha Sepulveda DO , personally performed the services described in this documentation, as described by Lucrecia Aguilera RN in my presence and it is both accurate and complete. Digitally Signed by ANALY LARSON DO on 02/02/2022 01:49 PM Rian Cndzqhkh46-85-8806 Physical medicine and rehab Progress note Date of Service 02/01/2022 Chief Complaint Subdural hematoma Subjective 66-year-old female seen today in follow-up. Case discussed with nursing and therapy staff. Took low-dose Ambien last night and slept well. States that she did not like how the Seroquel made her feel.Has been a chronic Ambien user. Educated regarding as needed indication of this medication. Currentestimate discharge home with family in 1 week. [...] Patti UD 3 mL, Inhalation, QIDRT balsam Lena-castor oil topical 87 mg-788 mg/g oint 60g [...] ANALY LARSON DO on 02/01/2022 11:34 AM [facility] CenterIunappkz42-52-6609 Nurse Progress note Nursing GG Entered On: [...] Completed Sit to stand : Not Completed Chair/cwq-bj-jmtho transfer : Not Completed Walk 10 ft : Not Completed Walk 50 ft with 2 turns : Not Completed Walk 150 ft : Not Completed Picking up object : Not Completed Vianca Wynn RN - 01/31/2022 0:02 EDT Digitally Signed by Vianca Wynn RN on 01/31/2022 12:02 AM [facility]ian[facility]be JaramilloMtubvolq85-31-8344 Nurse Progress note Eating-05 Setup Oral hygiene-04 Supervision/Touching assistance Toileting hygiene-03 Partial/Moderate assistance Shower/bathe self-03 Partial/Moderate assistance Upper body dressing-06 Independent Lower body dressing-02 Substantial/Maximal assistance Putting on/Taking off footwear-03 Partial/Moderate assistance Roll left and right-04 Supervision/Touching assistance Sit to lying-04 Supervision/Touching assistance Lying to sitting on side of bed-04 Supervision/Touching assistance Sit to stand-03 Partial/Moderate assistance Chair/oej-ix-zmsne transfers-03 Partial/Moderate assistance Toilet transfers-03 Partial/Moderate assistance [...] by FINESSE Lema on 01/30/2022 09:10 PM Rian JaramilloCslzsssk46-25-7171 Nurse Progress note Nursing GG Entered On: 01/30/2022 13:48 EDT Performed On: 01/30/2022 13:48 EDT by FINESSE Hollis Nursing GG's OT GG Grid Eating : Independent Oral Hygiene : Independent Toilet Hygiene : Partial/Moderate Toilet Transfer : Partial/Moderate FINESSE Hollis - 01/30/2022 13:48 EDT Digitally Signed by FINESSE Hollis on 01/30/2022 01:48 PM Rian JaramilloYdgxamoa85-19-5388 Physical medicine and rehab Progress note Date [...] Patti UD 3 mL, Inhalation, QIDRT balsam Lena-castor oil topical 87 mg-788 mg/g oint 60g [...] Alcohol abuse 7. Anemia Orders: Diet per Quality Assurance Monitor Chassis Time Spent 25 min Digitally Signed by ANALY LARSON DO on 01/30/2022 10:35 AM [facility] CenterWxtoxmbd42-03-8881 Nurse Progress note A complete drug regime review was completed upon admission. No potentia clinically significant medication issues were found. Digitally Signed by FINESSE Lema on 01/30/2022 06:50 AM [place] [address]-28-2022 Nurse Progress note Nursing GG Entered On: 01/29/2022 13:29 EDT Performed On: 01/29/2022 13:29 EDT by FINESSE Hollis Nursing GG's OT GG Grid Eating : Independent Oral Hygiene : Independent Toilet Hygiene : Partial/Moderate Toilet Transfer : Partial/Moderate FINESSE Hollis - 01/29/2022 13:29 EDT Digitally Signed by FINESSE Hollis on 01/29/2022 01:29 PM [place] [address]-28-2022 Physical medicine and rehab Progress note Date [...] ANALY LARSON DO on 01/29/2022 11:27 AM Rian JaramilloMicknrch59-66-1098 Note Subjective Patient is currently sitting on [...] right side of head, well approximated VITALS VxxpmlBgldFQDfzlwAFPjW7VNZ8FglpNz(kg) 01/29 03:3836.4--465020BA93/27 61.4 01/28 20:05----3822080OH60/26 64.6 01/28 16:2536.2110/277834863 2.0L/m 01/28 16:06----8999404-- 01/28 08:4835.897/910119938 2.0L/m 24 Hr Tmax: 36.4 at 01/29 [...] 3 mL, Soln, Inhalation, QIDRT, 0 balsam Lena-castor oil topical (Venelex 788 mg-87 mg/g topical ointment) Start: 01/28/22 9:51:00 EDT, Dose = 1 bacilio, Topical, BID, Apply to: heels, Ointment, 01/28/22 9:51:00 EDT budesonide (Pulmicort Respules) Start: 01/27/22 21:04:00 EDT, Dose = 0.25 mg, = 2 mL, Inhalation, BIDRT, 1st dose location: [place] [address] escitalopram Start: 01/27/22 20:02:00 EDT, Dose = 10 mg, = 1 tab(s), Oral, qDay, 01/27/22 20:02:00 EDT senna (senna (sennosides) 8.6 mg oral tablet) Start: 01/27/22 20:02:00 EDT, Dose = 8.6 mg, = 1 tab(s), Oral, qDay, 01/27/22 20:02:00 EDT Active PRN Meds: Al hydroxide/Mg hydroxide/simethicone (Maalox) Start: 01/27/22 19:48:00 EDT, Dose = 30 mL, Susp, Oral, q6h, PRN, Indigestion, 0, 01/27/22 19:48:00 EDT acetaminophen (Tylenol) Start: 01/27/22:48:00 EDT, Dose = 650 mg, = 2 [...] Constipation, 01/27/22 19:48:00 EDT glucagon (GlucaGen) Start: 01/27/22:48:00 EDT, Dose = 1 mg, = 1 mL, Intramuscular, AsDirected, PRN, Hypoglycemia, if unresponsive, NO IV ACCESS & blood glucose less than 60mg/dL. REPEAT x1 if still unresponsive., 1st dose location: [facility], 0, 01/27/22 19:48:00 EDT glucose (Dextrose 50% IV Push) Start: 01/27/22 19:48:00 EDT, Dose = 12.5 gram(s), = 25 mL, IV Push,AsDirected, PRN, Hypoglycemia, if unresponsive WITH IV ACCESS & blood glucose less than 60mg/dL. REPEAT x1 if still unresponsive after 2 minutes., 01/27/22 19:48:00 EDT glucose Start: 01/27/22:48:00 EDT, Dose = 16 gram(s), = 4 [...] IV Meds: None Problems (8) ACL tear (003347432) Alcohol abuse (90021622) Anemia (642310688) Anxiety (77981696) COPD (chronic obstructive pulmonary disease) (99202465) History of cranioplasty (199689758) History of stroke (4082217863) Subdural hematoma (6408380275) ASSESSMENT/PLAN: Acute right subdural hematoma status post decompressive craniotomy with flap and cranioplasty: Patient is to follow-up with Dr. Matute in 4 to 5 weeks at [facility] Bilateral lower extremity pain: Duplex scan obtained negative for DVT none reported at time of today's exam Anemia: Most recent hemoglobin level at 8.0 would like a follow-up CBC on Wednesday for ongoing monitoring no signs of bruising or bleeding Hypertension: Will monitor vitals closely did have an isolated episode of a systolic blood yulpcnkb58 currently asymptomatic Tachycardia: At time of today's [...] by HINA TURCIOS on 01/30/2022 12:20 PM Rian Montes-27-2022 Nurse Progress note Nursing GG Entered On: 01/28/2022 16:59 EDT Performed On: 01/28/2022 16:59 EDT by Ofe Larios RN Nursing GG's OT GG Grid Eating : Set up & Clean up Ofe Larios RN - 01/28/2022 16:59 EDT Digitally Signed by Ofe Larios RN on 01/28/2022 04:59 PM Rian Montes-27-2022 Evaluation + Plan noteExtracted from: Title:Rehab Post Admission Physician Selena H&P Ayana thor:ANALY LARSON DO Date:01/28/22 Assessment/Plan 1. [...] Sandy Estimated Length of Stay 2 weeks Rian Jaramillo 07-27-2022 History and physical note Date [...] bone > 5cm. SURGEON: Severo Jurado MD CLOTH CALENDER: Nicole Castaneda MD ANESTHESIA: General endotracheal anesthesia Fluids: Refer to the anesthesia documentation for details. EBL: 100cc Complications: none [1] Social History Smoking Status - 07/01/2016 Former smoker Alcohol - No Risk, 09/07/2021 Use: Current., 01/23/2022 Substance Abuse - No Risk, 09/07/2021 Tobacco - No Risk, 09/07/2021 Family History Cancer: Mother. Heart attack 01-Jan-2016 02:33:12<$>: Father. Allergies tetanus toxoid (Hives, Swelling) [...] ANALY LARSON DO on 01/28/2022 11:51 AM Rian JaramilloWcwkvmgo20-93-9114 Nurse Progress note Patient received and acknowledged the privacy act statement and the data collection information summary on admission. Patient also received and acknowledged the rehab disclosure form with the expected therapy and that she has [employer] insurance. Digitally Signed by FINESSE Lema on 01/28/2022 11:47 AM Rian Montes-27-2022 Nurse Progress note Nursing GG Entered On: 01/28/2022 11:29 EDT Performed On: 01/28/2022 11:29 EDT by Ofe Larios RN Nursing GG's OT GG Grid Eating : Set up & Clean up Ofe Larios RN - 01/28/2022 11:29 EDT Digitally Signed by Ofe Larios RN on 01/28/2022 11:29 AM Rian Montes-26-2022 Nurse Progress note Nursing GG Entered On: 01/27/2022 23:17 EDT Performed On: 01/27/2022 23:17 EDT by Luis Metzger RN Nursing GG's OT GG Grid Eating : Set up & Clean up Luis Metzger RN - 01/27/2022 23:17 EDT Digitally Signed by Luis Metzger RN on 01/27/2022 11:17 PM [facility] CenterYaupbznt05-85-1761 Nurse Progress note Nursing GG Entered On: 01/27/2022 20:11 EDT Performed On: 01/27/2022 20:11 EDT by Luis Metzger RN Nursing GG's OT GG Grid Eating : Set up & Clean up Luis Metzger RN - 01/27/2022 20:11 EDT Digitally Signed by Luis Metzger RN on 01/27/2022 08:11 PM Rian JaramilloClhvcwfj16-50-6438 Miscellaneous Notes* Nursing Notes - Kaylen Payton RN - 01/27/2022 4:36 PM EDT Called [facility] and gave report to Des KILPATRICK. Faxed AVS and POONAM to facility. [id number] Pt discharged to [facility] via ambulance. PIV removed. Pt left with [...] Mcneil RN - 01/24/2022 9:15 PM EDT Fer8E Shira2 Yadira Pt c/o pain while peeing. Urinanalysis? Courtney [id number] * Plan of Care - Shahrzad Corrales RD - 01/23/2022 1:56 PM EDT Nutrition Recommendations and Plan of Care: Encourage po intake. Pt not currently meeting nutrition needs with po intake Pt declined ONS Monitor weight, labs, skin, and po intake RD will continue to follow during admission * Nursing Notes - Marga Gould RN - 01/22/2022 6:21 PM EDT Paged x [phone] NS3 Night RES [phone] BMaritoE Yadira Pt has Hx. of CHF, HTN noticed MIV fluids running are you wanting to continue, Fluid overload concern? Also pt. head Dressing is saturated and needs changed which first dressing change usually done by surgeon ashvin [id number] * Plan of Care - Zarina Mcdonald, [...] - 01/22/2022 7:13 AM EDT Paged NS3 [phone] B8E Beckler Good morning Pt Hgb this AM dropped 1 point to 7.6 from 8.6. Pt did have surgery yesterday but PACU stated very little blood loss. Do you want to recheck in 6hrs? or just monitor randycheck in AM? Thanks Keya #[phone] * Plan of Care - Marga Gould [...] (CPG) Outcome: Ongoing * Op Note - Nicole Castaneda MD - 01/21/2022 5:20 PM EDT Operative Report Procedure Date: 01/21/22 PREOPERATIVE DIAGNOSIS: 1. Right sided skull defect POSTOPERATIVE DIAGNOSIS: 1. Same PROCEDURE: 1. Right sided cranioplasty with patient own bone > 5cm. SURGEON: Severo Jurado MD CLOTH CALENDER: Nicole Castaneda MD ANESTHESIA: General endotracheal anesthesia Fluids: [...] stable condition. There were no complications. . Nicole Castaneda MD Neurosurgery PGY-6 [phone] * Nursing Notes - Marga Gould RN - 01/21/2022 12:55 PM EDT Paged NS3 [phone] B8E Yadira pt back from OR swallow screening passed are we able to get a diet? thank you Ksunncelias [id number] * Nursing Notes - Maren Travis RN - 01/21/2022 11:54 AM EDT Report called to admitting unit. PACU admission assessment remains unchanged, dressings intact. Pt transported on telemetry and pulse ox with certified telesales agent at bedside to [place] and then [place] [id number]. * Brief Op Note - Nicole Castaneda MD - 01/21/2022 10:44 AM EDT Luiza Brown Yadira ([id number]) PRE OPERATIVE DIAGNOSIS Skull defect [M95.2] Acquired skull defect [M95.2] POST OPERATIVE DIAGNOSIS Post-Op Diagnosis Codes: * Skull defect [M95.2] * Acquired skull defect [M95.2] PROCEDURE PERFORMED Procedure(s) (LRB): CRANIOPLASTY FOR SKULL DEFECT (Right) PRIMARY CLOSURE Yes, 2-0 nylon INTRAOPERATIVE FINDINGS R cranioplasty SURGEON Surgeon(s) and Role: * Severo Jurado MD - Primary ANESTHESIOLOGIST Anesthesiologist: Mildred Basurto MD ALARM SERVICE TECHNICIAN: Bonita Osuna APRN-ALARM SERVICE TECHNICIAN Line Maintenance Supervisor: MARY LOU Hobbs SURGICAL STAFF Computer Systems Administrator: Pepper Gabriel RN Relief Computer Systems Administrator: Carla Lee RN Relief Scrub: Mamie Mcdonald Scrub Person: Adriane Billy Resident Assisting: Nicole Castaneda MD COMPLICATIONS None ESTIMATED BLOOD LOSS 100 ml SPECIMENS No specimen sent * No specimens in log * iNcole Castaneda MD January 21, 2022 10:44 AM [...] EDT Text page sent to MD Liu: Keri Kohler Beckler: FYI, she passed her swallow. She really wants the dobhoff out. Any plans to remove that today? Bárbara Larson [id number] * Nursing Notes - Bárbara Garcia RN - 01/20/2022 2:02 PM EDT Text page sent to MD Ta: Keri KohlerAYadira: Pt appears to have a bleeding hemorrhoid's. Can you place a tux pad order for her? Fords one when providing care and bright red blood on pad, none noted in stool. Did not visualize one when looking. Bárbara Larson [id number] * Nursing Notes - Pepper Valero RN - 01/20/2022 8:47 AM EDT Paged NS3: 3ODP 771 Luiza May: Dr. Rawls called this patient's brother last night and left a message. he would like to speak with someone today and is at bedside. His name is Antelmo Everett [phone] * Plan of Care - Cindy Spring [...] PM EDT Sent text-page to Dr. Nava B8L 864 Luiza May: pt feels anxious, unable to give hydroxyzine until 1855. 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 Could you order this for pt? Melatonin and Seroquel did not help her sleep last night.Thanks, Marni KILPATRICK MD acknowledged via phone call. MD stated they will discuss with team. 1500: Nakia Heath MD, BSH - 872 - Yadira - Would Zoloft [...] or geriatrics if AMS persists. Bárbara Moran RN-[facility] Pager: [phone] [facility] Phone: [phone] * Nursing Notes - Marni Naylor RN - 01/17/2022 12:11 PM EDT Nakia Heath MD, BSH - 872 - Yadira - WBC have [...] be behavioral sit not SI. Thanks Vivien [id number] * Plan of Care - Marni Naylor [...] 01/16/2022 6:18 PM EDT Nakia Jc MD, BS - 872 - [facility] - [facility] pt was hallucinating a snake and spider [...] 1. Continue current diet. Diet advancement per WOOLEN MILL UTILITY WORKER. - pt declines oral nutrition supplements 2. [...] 12:46 PM EDT Secure chat with [employer]oll DROP COUNT ASSOCIATE, Pt family notified RN that they gave 2 puffs of albuterol to pt at 1225. Would you like me to chart that family administered or would you rather chart? I educated family that DROP COUNT ASSOCIATE comes to give inhalers so they don't have to. Marni Larson RN * Nursing Notes - Marni Naylor RN - 01/16/2022 7:27 AM EDT Nakai Nava MD, BS - 872 - [facility] Can you renew sitter order? Marni Larson RN MD renewed sitter order. * Nursing Notes - Marni Naylor RN - 01/15/2022 6:00 PM EDT 01/15 0600: Nakia MENDES, BS - 872 - Yadira - Pt has 30ml flushes 4 times daily. Her UO is averaging about 38ml/hr, but would you want to increase flushes to prevent dehydration as pt isn't drinking much PO. Marni Larson RN 01/16 0729: called. Told RN to encourage PO intake. * Nursing Notes - Marni Naylor RN - 01/15/2022 5:32 PM EDT Nakia MENDES, BS - 872 - Yadira - Could you order eyedrops for pt? Eye's are dry. Marni Larson RN * Nursing Notes - Marni Naylor RN - 01/15/2022 2:47 PM EDT Nakia Nava MD, [facility] - 872 - [facility] - Can you change Tylenol order for mild, mod, and severe pain? Thanks, Marni KILPATRICK MD changed order. * Plan of Care [...] behavioral issues reported. Contact [facility] as needed. FINESSE Katz Pager: [phone] [facility] Phone: [phone] * Nursing Notes - Marni Naylor RN - 01/15/2022 9:25 AM EDT Nakia Nava MD, [facility] - 872 - Yadira - Pt does not have consent for blood this admission. Can youget consent? Thanks, Marni KILPATRICK MD called RN. MD to call family to get consent. 1102: Nakia Nava MD, [facility] - 872 - Yadira - Consent for blood not seen in pt chart. Could you make sure you uploaded this? Thanks, Marni RN * Nursing Notes - Diane Schwartz RN - 01/14/2022 9:53 PM EDT Page to MD Rawsl: Fer8E, 0872/A, Yadira, Pt continuing to have hallucinations. Hasn't slept much - delirium? Consistently crying out for help for nonspecific needs - very anxious and labile despite PRNs. Please advise.Thanks, Diane [phone] OS [employer] Page to MD Rawls: Edita, Aisha/Yadira Sousa, Please place bladder scan and straight cath orders. Thanks, Diane Schwartz RN, [facility] [employer] Page to MD Rawls: Fer8E, 0872/AYadira, Pt expressed thoughts of SI. No plan but doesn't feel life is worth living anymore. Answered orientation questions properly, but still confused and hallucinating. Please advise, Diane Schwartz RN, [employer] * Nursing Notes - Angelic Nye RN [...] 7:26 AM EDT Paged NS 3, re: B8ketan Silva2: Patient transferred to floor. I&O need changed from q1 to q4/q8. Please discontinue ICU orders (tele/pulse ox, a.line, CVC, C- spine, q1 pain). Paged NS 3, re: B8e Yadira Silva2: Do not think patient will consume enough PO intake to not need TFrunning. Was reluctant to take one bite of meds in puree this AM. Refused anything to drink. Paged NS 3, re: Edita Silva2: Sorry for multiple pages about this patient. [...] Solis - 01/13/2022 8:20 AM EDT Problem: WOOL[employer] MILL UTILITY WORKER - Dysphagia Goal: PO Trial 3 Description: Patient will swallow trials of advancing solids demonstrating appropriate alertness, timely/effective mastication, bolus formation and oral bolus transit without overt clinical signs/symptoms of aspiration, across 1-3 sessions to determine readiness for diet advancement. 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 Dex Patricia, spouse [phone] Advanced Care Planning Has the patient completed Advance Directives?: Not Completed Referral to Social Work for Advance Care Planning? : Patient Declines Legal Next of Kin Does the patient have a Guardian?: No Spouse: Yes Name and Contact information: dex patricia Significant Other [phone] Referral to Social Work to Identify Legal [...] Juno Monroy MD Orthopaedic Surgery, PGY4 Pager #[phone] * Plan of Care - Pepper Mcgowan RD - 01/11/2022 8:42 AM EDT [...] free water/d. 2. Diet: NPO. Advancement per WOOLEN MILL UTILITY WORKER. 3. RD to follow. * Plan of [...] Childers - 01/10/2022 11:50 AM EDT Problem: WOOL[employer] MILL UTILITY WORKER - Dysphagia Goal: PO Trial 2 Description: [...] (Adult) CPG). Outcome: Ongoing * Certification - EMELY Stubbs - 01/09/2022 1:49 AM EDT I certify that this patient requires inpatient services at this time. I anticipate the expected length of stay will include at least two midnights. Inpatient services are due to the following medicalconcerns SDH. Plans for post hospitalization care will be discharge to [facility]. * Op Note - Lowell Bryant MD - 01/08/2022 6:43 PM EDT [facility] Operative Record Surgeon: Severo Jurado MD [place] [employer] Group Leader: Lowell Bryant MD Pre-operative Diagnosis: Right subdural hematoma Post-Operative Diagnosis: same Procedure: 1.right sided Decompressive Craniectomy 2. Placement of Epidural Drain Anesthesia: GA EBL: Minimal Complications: none Findings: Massive Brain Shift and Compression secondary to acute subdural hematoma Clinical History: Luiza May is a 66 y.o. Female With a PMH of aspirin use, and alcoholism. [facility]ided acute SDH [...] proceeded to make bur holes using the final finisher bit. A bur hole was made over the temporal bone. In addition, 1 was made at the keyhole. Another bur hole was made in the posterior parietal area, Once this was done, a curette as well as a [place] were used to adequately strip the dura [...] DuraGen was placed on top of the hoopa dura. Then a drain was placed. This was a 10 yemeni round PVC drain which was tunneled posteriorly [...] Lowell Bryant MD, PGY7 Neurological Surgery Page [phone] with questions * Brief Op Note - Lowell Bryant MD - 01/08/2022 6:42 PM EDT Luiza S Yadira ([id number]) PRE OPERATIVE DIAGNOSIS Subdural hematoma [S06.5X9A] POST OPERATIVE DIAGNOSIS Post-Op Diagnosis Codes: * Subdural hematoma [S06.5X9A] PROCEDURE PERFORMED Procedure(s) (LRB): Right craniotomy/craniectomy for hematoma evacuation (Right) PRIMARY CLOSURE Yes INTRAOPERATIVE FINDINGS large R SDH hematoma, [facility] performed SURGEON Surgeon(s) and Role: * Severo Jurado MD - Primary ANESTHESIOLOGIST Anesthesiologist: Miguel Angel Kay MD ALARM SERVICE TECHNICIAN: Arnav Chin APRN-ALARM SERVICE TECHNICIAN Line Maintenance Supervisor: MARY LOU López SURGICAL STAFF Computer Systems Administrator: Yaritza Collins RN Resident Assisting: Nicole Castaneda MD; Lowell Bryant MD Dental Appliance Repairer: Panfilo Hansen COMPLICATIONS None ESTIMATED BLOOD LOSS 250 ml [...] Rings given to security [facility] of Present illness Narrative* Cheo Jack MD - 01/27/2022 12:57 PM EDT NEUROSURGERY PROGRESS NOTE: 01/27/22 S: TORIE O: PE: NAD AOx2 (name, [...] cannula (01/27 121) Flow (L/min): 2 (01/27 121) I/O last 3 completed shifts: In: 200 [P.O.:200] Out: 200 [Urine:200] ICP: No data recorded WBC/Hgb/Hct/Plts: 8.31/8.4/27.4/474 (01/27 0000) Na/K+/Phos/Mg/Ca: 143/3.4/4.0/1.7/-- (01/27) Bun/Creat/Cl/CO2/Glucose: 9/0.67/103/30/91 (01/27 0000) A/P: Luiza May is a 66 y.o. female p/w SDH s/p R hemicraniectomy on 01/08/2022; cranioplasty 01/21 Neuro: neuro checks, PT/OT, post op CTH stable Cards: SBP<160 Resp: room air FEN/GI: DIET REGULAR PPX: SCDs, Pharm DVT ppx lovenox Dispo: IPR pending Please page NS3 ([phone]) with questions. Active Problems: SDH (subdural hematoma) Anemia (Low HGB) Electrolyte disorder (K, Cl, or Na) Post-operative state Present on Admission: SDH (subdural hematoma) Anemia (Low HGB) Electrolyte disorder (K, Cl, or Na) * RUI Gaviria - 01/27/2022 12:24 PM EDT Social Work Final Discharge Plan and Transportation Final Discharge Planning Discharge Disposition: Inpatient Rehab Facility Services at Discharge: Longterm, Occupational Therapy, Physical Therapy, Speech Therapy Community Agency Name(s) For Handoff: Rian Jaramillo Name For Handoff: gas charger Phone For Handoff: [phone] Fax For Handoff: [phone] Selected Continued Care - Admitted Since 01/08/2022 Destination Coordination complete. Service Provider Selected Services Address Phone Fax Patient Preferred [facility] Inpatient Rehabilitation [address] [place], [place] [id number] -- -- Plan Plan: Patient to discharge to inpatient rehab hospital Patient/Family In Agreement With Plan: yes Pickle Cutter Called: Yes Name of Transport Company: Other [...] updated the bedside RN, CCM, facility and patient/wine sales representative of the discharge plan and transport time. Patient/Air Pollution Control Engineer remain in agreement with the discharge plan. Bedside RN to call report and fax AVS/POONAM. Ambulance form left at the community health advisor desk with a request for a printed transfer report. Discharge Instruction for Bedside RN: 1. Confirm the Ambulatory Order is in the POONAM. 2. Print the POONAM and AVS. 3. Print the Discharge Summary for facilities (if available). 4. Fax POONAM, AVS and Discharge Summary (when applicable) to agency or facility. 5. Call the agency or facility for report. RUI Tiwari [employer] Crew[employer] [facility] 8th floor [phone] * Sinai Saenz OT - 01/26/2022 3:30 [...] safety. Mobility Assessment/Intervention: Supine to Sit Mobility Dare Level: Supine->Sit: stand-by assist Bed Features/Set-up: Supine->Sit: Head of bed elevated, Use of bed rail Skilled Rationale: Cues for increased safety, Technique of activity, Tactile cues, Verbal cues Skilled Intervention/Details: Supine->Sit: Mostly cueing for safety, mildly increased time/effort for performance. Transfer Assessment/Intervention: Sit to Stand Transfer Dare Level: Sit->Stand: contact guard assist (x 1 [...] full upright posture. Stand to Sit Transfer Dare Level: Stand->Sit: contact guard assist Assistive Device: Stand->Sit: gait belt, 2 wheeled walker (Non-skid sock; Trial from EOB and trial to ambulate to sink completed with 2 wheeled walker, otherwise, no DME utilized for transfers.) Skilled Rationale: Cues for increased safety, Technique of activity, Tactile cues, Verbal cues, Hand placement Bed-Chair Transfer Dare Level: Bed<->Chair: minimum assist (75% patient effort) Assistive Device: Bed<->Chair: gait belt, 2 wheeled walker (Non-skid socks.) Skilled Rationale: Cues for increased safety, Technique of activity, Tactile cues, Verbal cues, Hand placement, Sequencing, Positioning Skilled Intervention/Details: Bed<->Chair: Mostly cueing for efficient/safe management of walker/body positioning within walker and to properly align hips to bedside chair; Side-stepping towards the right. Functional Mobility: Functional Mobility Dare Level: Functional Mobility/Gait: (CGA-minimal assistance) Assistive Device: [...] cues for visual limitations. Outcome Score(s): CURRENT -[facility] Daily Activity Inpatient Short Form Putting on/Taking [...] region: Discussed and honored [facility] List was provided to: Patient, Significant other, Brother Method of delivery: In Person Is the provider part of a joint venture or have a financial relationship with discharging hospital?: No Barriers: insurance authorization, transportation Current Referrals and Status 1. [facility] ([facility]) RESERVED DOGMAN/WOMAN spoke with IPR liaison who confirmed that precert remains pending. IPR request RAPID COVID testwithin 24 hours of admission. DOGMAN/WOMAN rescheduled transport with [facility] for soonest available Sunday 01/28 at 10:45-11am with [facility]. ADDENDUM: DOGMAN/WOMAN informed that precert was approved. DOGMAN/WOMAN contacted numerous transport companies. Soonest available is Saturday 01/27 at 5:30PM with [facility]. RIU Tiwari [employer] [facility] 8th floor [phone] * RUI Perez - 01/25/2022 8:36 AM EDT SW spoke with patients daughter on the phone after receiving a chat that the Ameena, patients daughter wanted to talk about her mothers discharge plan. Ameena agrees with discharge to [facility].We are still pending percert. Ivonne GASTON [employer] Addendum: Still no precert. Left message for Renetta rolon [place] in AIDIN. * Rakesh Ta MD - 01/25/2022 6:49 AM EDT NEUROSURGERY PROGRESS NOTE: 01/26/22 S: NAEON O: PE: NAD AOx2 (name, [...] 238) Bun/Creat/Cl/CO2/Glucose: 8/0.58/102/34/90 (01/26 238) A/P: Luiza May is a 66 y.o. female p/w SDH s/p R hemicraniectomy on 01/08/2022; cranioplasty 01/21 Neuro: neuro checks, PT/OT, post op CTH stable Cards: SBP<160 Resp: room air FEN/GI: DIET REGULAR PPX: SCDs, Pharm DVT ppx lovenox Dispo: IPR pending Please page NS3 ([phone]) with questions. Active Problems: SDH (subdural hematoma) Anemia (Low HGB) Electrolyte disorder (K, Cl, or Na) Present on Admission: SDH (subdural hematoma) Anemia (Low HGB) Electrolyte disorder (K, Cl, or Na) * RUI Perez - 01/24/2022 1:26 PM EDT Spoke with Renetta ([phone]) at [facility]. Still pending precert. Ivonne Monroe S [employer] * Joy Rawls Jr., MD - 01/24/2022 [...] (cmH2O): 10 O2 Sat (%): 91 % (01/24 602) O2 Device: nasal cannula (01/23 2200) Flow (L/min): 1 (01/23 2200) I/O last 3 completed shifts: In: 350 [P.O.:350] Out: 1020 [Urine:1020] ICP: No data recorded WBC/Hgb/Hct/Plts: 10.98/8.1/26.5/459 (01/24 0559) Na/K+/Phos/Mg/Ca: 139/3.8/3.6/1.7/-- (01/24 559) Bun/Creat/Cl/CO2/Glucose: 7/0.50/101/31/99 (01/24 [...] Lovenox Dispo: IPR pending Please page NS3 ([phone]) with questions. Active Problems: SDH (subdural hematoma) [...] authorization, transportation Current Referrals and Status 1. [facility] ([facility]) RESERVED Precert remains pending. IPR request RAPID COVID test within 24 hours of admission. DOGMAN/WOMAN arranged transport for Friday 01/26 at 11-12pm with [facility]. Melina HANKS, CARAMEL CUTTER HELPER [employer] [facility] 8th floor [phone] For Social Work assistance for the weekend, please contact for assistance as needed (8:00am - 4:30pm): [facility]: [phone] Marge: [phone] Bernardo: [phone] Marcelo/MICU/PCU Jeet: [phone] * Shahrzad Corrales, CITLALI - 01/23/2022 9:38 [...] bedside. 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 Dislikes Ensures and wants them discontinued. Pt [...] (21% in 3 months). Scheduled Meds Include: ojzwipasfm-mmgwlfsdkgedpn-Zxdjeeaxhr 1 puff Inhalation BID DULoxetine 60 mg [...] 55 kg, admit wt Estimated Kcal Needs: 7173-1020 (25-30 kcal/kg admit wt) Estimated Pro Needs: 80-110 (1.5-2 g/kg admit wt) Estimated fluid needs: 4895-3516 (30-35 ml/kg admit wt) Malnutrition Diagnosis: Indications of Malnutrition: Unable to assess- unable to obtain clear weight history, new standing wt requested. based on the AND/ASPEN Malnutrition Criteria [address], LD Registered Dietitian Pager # [phone] 01/23/22 Please note I am providing cross coverage for this day. For primary Dietitian contact information or up to date coverage please see [employer] schedule for Dietitian Curtain Fitter for the appropriate unit for Wednesday-Wednesday coverage [...] Lovenox Dispo: IPR pending Please page NS3 ([phone]) with questions. Active Problems: SDH (subdural hematoma) [...] Lovenox Dispo: pending PTOT Please page NS3 ([phone]) with questions. Active Problems: SDH (subdural hematoma) [...] authorization, transportation [facility] and Status [facility] sent clinical updates to IPR via AIDIN. Patient in agreement with IPR location as [facility] choice [facility] was not available. IPR to initiate precert. DOGMAN/WOMAN to continue following. RUI Tiwari [employer] [facility] 8th floor [phone] * Rosalia Figueroa, OT - 01/22/2022 11:47 AM EDT Acute [...] Attends with cues to redirect Memory: Decreased salvage determiner memory, Decreased short term memory Problem Solving: [...] task. Mobility Assessment/Intervention: Sit to Supine Mobility Dare Level: Sit->Supine: contact guard assist Bed Features/Set-up: Sit->Supine: Flat Skilled Rationale: Positioning Transfer Assessment/Intervention: Sit to Stand Transfer Dare Level: Sit->Stand: minimum assist (75% patient effort) [...] weightshift) at RW Stand to Sit Transfer Dare Level: Stand->Sit: minimum assist (75% patient effort) [...] improved safety and controlled descent. Toilet Transfer Dare Level: Toilet: minimum assist (75% patient effort) [...] STS at RW Functional Mobility: Functional Mobility Dare Level: Functional Mobility/Gait: minimum assist (75% patient [...] manuevering, particularly on turns. Outcome Score(s): CURRENT AM-PAC Daily Activity Inpatient Short Form Putting on/Taking Off Lower Body Clothin - A Little Assistance Bathin - A Little Assistance Toiletin - A Lot of Assistance Putting on/Taking Off Upper Body Clothin - A Little Assistance Groomin - A Little Assistance Eatin - No Assistance CURRENT -[facility] Activity Raw Score: 18 CURRENT AM-[facility] Activity Functional Limitation/Modifier: 46.65% Currently Impaired in [...] current Occupational Therapy Discharge Summary. * Zarina Mcdonald, PT - 01/22/2022 11:23 AM EDT Acute Physical Therapy Treatment Prior to Admission AMPA score(s): PRIOR LEVEL AM-PAC Mobility Raw Score: [...] day of multi-disciplinary rehab to [facility] Mobility equipment available at home: none used [...] EOB Mobility Assessment/Intervention: Supine to Sit Mobility Dare Level: Supine->Sit: contact guard assist Bed Features/Set-up: Supine->Sit: Head of bed elevated Skilled Rationale: Verbal cues, Tactile cues, Hand placement, Technique of activity Skilled Intervention/Details: Supine->Sit: supine to sit to right side of bed with CGA with verbal/tactile cues for instruction on transfer technique. Transfer Assessment/Intervention: Sit to Stand Transfer Dare Level: Sit->Stand: minimum assist (75% patient effort) Assistive Device: Sit->Stand: gait belt Skilled Rationale: Verbal cues, Tactile cues, Hand placement, Technique of activity Skilled Intervention/Details: Sit->Stand: x3 trials: once from EOB, twice from chair. PT provided verbal/tactile cues for hand placement and instruction on transfer technique. Bed-Chair Transfer Dare Level: Bed<->Chair: minimum assist (75% patient effort) Assistive Device: Bed<->Chair: gait belt Skilled Rationale: Verbal cues, Tactile cues, Hand placement, Technique of activity Skilled Intervention/Details: Bed<->Chair: stand pivot transfer from EOB to chair to the leftwith min A and PT provided verbal/tactile cues for instruction on transfer technique. Gait/Functional Mobility Assessment/Intervention: Gait Assessment Dare Level: Gait: minimum assist (75% patient effort) Physical Assist: Gait: chair follow Assistive Device: Gait: gait belt Gait Distance (feet): 30, seated rest break, 30 Gait Deviations Identified: decreased jenny, decreased gait speed, decreased heel strike, decreased step length, decreased stride length Gait Skilled Rationale: verbal, upright posture, improve foot placement Skilled Intervention/Details - Gait: Pt amb x 30 feet, took seated rest break, then amb 30 feet with min A x 1 and chair follow. PT provided verbal/tactile cues to facilitate upright posture and improved foot placement. Outcome Score(s): CURRENT AM-PAC Basic Mobility Inpatient Short Form Turning over [...] with a railin - Total Assistance CURRENT [facility] Mobility Raw Score: 16 CURRENT [facility] Mobility Functional Limitation/Modifier: 54.16% Currently Impaired in [...] with discharging hospital?: No Anticipated discharge disposition: Longterm Facility. Pending PT/OT Anticipated Services at Discharge: Physical Therapy, Occupational Therapy, Longterm, Outpatient follow up, Wound/drain/line/ostomy-supplies Explanation of Barriers: Pending medical stability Readmission Risk Score Risk of Readmission: 4.6 Category Reference: High:16-100 Mod-High:10-16 Mod-Low: 5-10 Low: 0-5 Philly BROWN RN Clinical Acquisition Lead [phone] * Zarina Mcdonald PT - 01/21/2022 7:59 AM EDT Physical Therapy Attempt Note 01/21/2022 PT Therapy Completed: Attempted Attempted Reason: Patient is unavailable due to test/procedure (at OR) Zarina Mcdonald PT Time In: 0759 Time Out: 0759 Total Visit Time: 0 minutes Total Treatment [...] 157) Bun/Creat/Cl/CO2/Glucose: 15/0.53/101/33/92 (01/21 157) Ptt/Pt/Inr: 27.4/13.4/1.0 (01/21 157) Imaging: repeat CT head showed stable appearance A/P: Luiza May is a 66 y.o. female p/w SDH s/p R hemicraniectomy on 01/08/2022 Neuro: neuro checks, incision open to air, PTOT. OR 01/21 cranioplasty Cards: SBP<160 Resp: per ICU, wean O2 as able ID: no acute issues FEN/GI: Nutrition, PO improved. Npo at midnight PPX: SCDs, Lovenox Dispo: pending PTOT Please page [phone] ([phone]) with questions. Active Problems: SDH (subdural hematoma) [...] place, but TF held. MBS completed by [employer]. Oral diet was advanced from pureed to [...] (Calculated): 52.4 kg Estimated Nutrition Needs: EEN: [id number] (25-30 kcal/kg admit wt) EPN: 80-110 (1.5-2 g/kg admit wt) Malnutrition Diagnosis: Indications of Malnutrition: Unable to assess (unable to obtain detailed PO history prior to admission, significant wt loss in last 3 months per chart review, NFPE unremarkable) based on the AND/ASPEN Malnutrition Criteria [address], LD, [facility]- Pager #[phone] Please note I am providing cross coverage for this day. For primary Dietitian contact information or up to date coverage please see [employer] schedule for Dietitian Curtain Fitter for the appropriate unit for Wednesday-Wednesday coverage [...] depression Interventions Intervention Needed? No RUI Tiwari Alb[employer]ore [employer] [facility] 8th floor [phone] * RUI Gaviria - 01/20/2022 12:18 PM EDT 01/20/22 1218 Safety Goals Safety Plan Completed No LATONYA met with patient at bedside to complete [...] other needs at this time. RUI Tiwari [employer] [facility] 8th floor [phone] * Lowell Bryant MD - 01/20/2022 11:04 [...] cannula (01/21 856) Flow (L/min): 2 (01/20 100) I/O last 3 completed shifts: In: 674 [...] Lovenox Dispo: pending PTOT Please page [phone] ([phone]) with questions. Active Problems: SDH (subdural hematoma) [...] free, Insurance Authorization Current Referrals and Status [facility] - RESERVED IPR: [facility] -sent pending review [facility] -sent pending review [facility] ([facility]) -sent pending review DOGMAN/WOMAN informed that PT/OT now recommending IPR level of care. DOGMAN/WOMAN sent IPR referrals in AIDIN, pending review/acceptance. If patient discharges to SNF. SNF cannot accept with NG tube and will need COVID test within 48 hours of admission. Patient will also need precert. DOGMAN/WOMAN to continue following. RUI Tiwari [employer] [facility] 8th floor [phone] * Lindsay Lemus MD, PhD - 01/19/2022 [...] ICP: No data recorded WBC/Hgb/Hct/Plts: 17.29/8.8/28.9/344 (01/19 030) Na/K+/Phos/Mg/Ca: 141/3.9/4.4/2.1/-- (01/19 300) Bun/Creat/Cl/CO2/Glucose: 24/0.57/102/32/118 (01/19 030) Imaging: repeat CT head showed stable appearance A/P: Luiza May is a 66 y.o. female p/w SDH s/p R hemicraniectomy on 01/08/2022 Neuro: neuro checks, incision open to air, PTOT Cards: SBP<160 Resp: per ICU, wean O2 as able ID: no acute issues FEN/GI: [employer] for further recs/evaluation; dysphagia diet, encourage PO vs PEG PPX: SCDs, Lovenox Dispo: pending PTOT, PO vs PEG for snf nutrition Please page [phone] ([phone]) with questions. Active Problems: SDH (subdural hematoma) [...] ability to efficiently dual task.) Memory: Decreased snf memory, Decreased short term memory Problem Solving: [...] Thread RUE, Thread LUE, Pull up arm, helmet coverer head, Ties, Attention, Initiation, Sequencing, Problem solving, [...] shift. Mobility Assessment/Intervention: Supine to Sit Mobility Dare Level: Supine->Sit: minimum assist (75% patient effort) [...] midline. Transfer Assessment/Intervention: Sit to Stand Transfer Dare Level: Sit->Stand: moderate assist (50% patient effort) [...] retropulsive lean/weight shift. Stand to Sit Transfer Dare Level: Stand->Sit: minimum assist (75% patient effort) Assistive Device: Stand->Sit: gait belt (Non-skid socks.) Skilled Rationale: Cues for increased safety, Initiation and execution of task, Technique of activity, Controlled descent for sitting, Arm in arm, Tactile cues, Verbal cues, Hand placement, Sequencing, Positioning, Ischial assist Bed-Chair Transfer Dare Level: Bed<->Chair: moderate assist (50% patient effort) [...] hips to chair. Functional Mobility: Functional Mobility Dare Level: Functional Mobility/Gait: moderate assist (50% patient effort) Assistive Device: Functional Mobility/Gait: gait belt (Non-skid socks.) Functional Mobility Distance: (Few feet forward from bedside chair to sink within room.) Skilled Intervention/Details - Functional Mobility/Gait: Moderate unsteadiness with pt presenting with retropulsive/posterior lean/weight shift and decreased coordinated LE movements, but no LOB/SOB experienced. Outcome Score(s): CURRENT [facility] Daily Activity Inpatient Short Form Putting on/Taking Off Lower Body Clothin - A Lot of Assistance Bathin - A Lot of Assistance Toiletin - Total Assistance Putting on/Taking Off Upper Body Clothin - A Lot of Assistance Groomin - A Lot of Assistance Eatin - Total Assistance ([place].) CURRENT [facility] Activity Raw Score: 10 CURRENT -[facility] Activity Functional Limitation/Modifier: 74.70% Currently Impaired in Daily Activity- CL PROJECTED -[facility] Activity Raw Score: 17 PROJECTED -[facility] Activity Functional Limitation/Modifier: 50.11% - CK Assessment [...] day of multi-disciplinary rehab to return to [facility] Mobility equipment available at home: none used [...] time) Bed Mobility: Supine to Sit Mobility Dare Level: Supine->Sit: minimum assist (75% patient effort) [...] new gown. Transfers: Sit to Stand Transfer Dare Level: Sit->Stand: moderate assist (50% patient effort) Assistive Device: Sit->Stand: gait belt Skilled Rationale: Verbal cues, Tactile cues, Positioning, Sequencing, Hand placement, Facilitate anterior shift, Full extension to upright positioning/posture Skilled Intervention/Details: Sit->Stand: x4 from EOB, x1 from recliner Stand to Sit Transfer Dare Level: Stand->Sit: (min/modA) Assistive Device: Stand->Sit: gait belt Skilled Rationale: Verbal cues, Tactile cues, Hand placement, Facilitate anterior shift, Controlleddescent for sitting Skilled Intervention/Details: Stand->Sit: x3 to EOB, x2 to recliner; good carryover of immediatecues, limited carryover from trial to trial. Bed-Chair Transfer Dare Level: Bed<->Chair: moderate assist (50% patient effort) Assistive Device: Bed<->Chair: gait belt, hand held assist Skilled Rationale: Verbal cues, Tactile cues, Sequencing, Facilitate anterior shift Skilled Intervention/Details: Bed<->Chair: Facilitation to reduce retropulsion, allowing for improved lateral weight shift and BLE advancement to side step to chair. Gait/Functional Mobility: Gait Assessment Dare Level: Gait: moderate assist (50% patient effort) Physical Assist: Gait: chair follow Assistive Device: Gait: gait belt, hand held assist Gait Distance (feet): 10 Gait Deviations Identified: decreased jenny, decreased gait speed (retropulsion) Gait Skilled Rationale: [...] environment. Outcome: Progressing Toward Goal * Elda Munoz, [employer] - 01/19/2022 9:12 AM EDT Acute Care Speech Language Pathology Treatment Diet Recommendations: Recommended Method of Nutrition: PO Recommended Diet Grade: regular Recommended Liquid Consistency: liquid- thin (IDDSI 0) Medications: (whole or crushed in puree) Swallow Strategies: (small single bites/sips) Type of Cues/Supervision: 1:1 supervision Assistance: nurse/aide, family Referrals: MBS Discharge Recommendations: Based on the below outcome measures/assessment score(s),, and [employer] clinical judgment, discharge destination recommendation is: Pending instumental swallow assessment Barriers to discharge home: Need for 1:1 assist to ensure safety with all PO intake Supporting factors for discharge setting: Impaired swallow function limiting nutritional status andsafety with oral intake Acute [employer] Outcomes Tracking Communicate basic wants and needs?: [...] of swallow function to most appropriately guide [employer] plan of care. Pt/family in agreement to recommendations. Also discussed patient's concerns re: tube feeds possibly impacting appetite/oral intake with MD, RN, and RD. Subjective: Awake, alert, reporting multiple concerns re: headache, wanting to shower, etc. These concerns were relayed to gas charger. Pt also with intermittent c/o nausea; notified RN and MD. Husbandand brother present. Pain: General Pain Documentation (Adult, OB, Peds) Presence of Pain: complains of pain/discomfort Pain Location: headache Pain Location: headache Respiratory Status: 2L via nasal cannula. Acute [employer] Goals Plan of Care by Elda Munoz, [employer] at 01/19/2022 9:12 AM Version 1 of 1 Problem: [employer] - Dysphagia Goal: PO Trial 3 Description: [...] elevated Alarms on at end of session: gas charger present in room; aware call light off [...] as able ID: no acute issues FEN/GI: [employer] for further recs/evaluation; dysphagia diet, encourage PO PPX: SCDs, Lovenox Dispo: pending PTOT Please page [phone]) with questions. Active Problems: SDH (subdural hematoma) [...] O2 as able ID: Ancef completed FEN/GI: [employer] for further recs/evaluation; dysphagia diet, encourage PO PPX: SCDs, Lovenox Dispo: pending PTOT Please page [phone] ([phone]) with questions. Active Problems: SDH (subdural hematoma) Anemia (Low HGB) Electrolyte disorder (K, Cl, or Na) Present on Admission: SDH (subdural hematoma) * Lupe Keane RD - 01/16/2022 5:14 PM EDT Have reviewed student's documentation and plan of care. Agree with note below. Lupe Keane RD,LD,[facility] #[id number] NUTRITION FOLLOW UP Nutrition Recommendations and Plan of Care: 1. Continue current diet. Diet advancement per [employer]. - pt declines oral nutrition supplements 2. [...] had been NPO since last RD visit. [employer] recommendation PO dysphagia diet and thin liquids [...] 4) Liquid Thin (IDDSI 0) [facility], [facility] Standing Status: Standing Number of [...] 1+ R arm Estimated Nutrition Needs: EEN: [id number] (25-30 kcal/kg admit wt) EPN: 80-110 (1.5-2 [...] to admission. Lisa Alexander, Dietetics Student Pager #[phone] * RUI Gaviria - 01/16/2022 11:38 AM [...] free, Insurance Authorization Current Referrals and Status [facility] - RESERVED Pending medical progressiion of patient. SNF cannot accept with NG tube and will need COVID test within 48 hours of admission. Patient will also need precert. DOGMAN/WOMAN to continue following. RUI Tiwari Alb[employer]ore [employer]ishing [employer]man [facility] 8th floor [phone] For Social Work assistance for the weekend, please contact for assistance as needed (8:00am - 4:30pm): [facility]: [phone] Marge: [phone] Bernardo: [phone] Marcelo/MICU/PCU Jeet: [phone] * RUI Gaviria - 01/16/2022 11:35 AM EDT Reason for Consult: Suicide Safety Plan Consulted By: Treatment Team Assessment Patient with altered mental status and delirium Action Plan DOGMAN/WOMAN to complete safety plan with patient once medically appropriate. RUI Tiwari Albacore [employer]ishing [employer]man [facility] 8th floor [phone] For Social Work assistance for the weekend, please contact for assistance as needed (8:00am - 4:30pm): [facility]: [phone] Marge: [phone] Bernardo: [phone] Marcelo/MICU/PCU Jeet: [phone] * Lisa Alexander - 01/16/2022 10:05 AM EDT NUTRITION FOLLOW UP Nutrition Recommendations and Plan of Care: 1. Continue current diet. Diet advancement per [employer]. - pt declines oral nutrition supplements 2. [...] had been NPO since last RD visit. [employer] recommendation PO dysphagia diet and thin liquids [...] 4) Liquid Thin (IDDSI 0) [facility], [facility] supervision Standing Status: Standing Number of [...] 1+ R arm Estimated Nutrition Needs: EEN: [phone] (25-30 kcal/kg admit wt) EPN: 80-110 (1.5-2 [...] to admission. Lisa Alexander, Dietetics Student Pager #[phone] * Nat Ag - 01/15/2022 1:11 PM EDT Acute Occupational Therapy Treatment Prior to Admission AM-PAC Score: PRIOR LEVEL AM-PAC Activity Raw Score: 24 PRIOR LEVEL AM-PAC Mobility Raw Score: 24 Current AM-PAC score(s): CURRENT AM-PAC Activity Raw Score: 7 Based on the above AM-PAC score(s), and OT clinical judgment, discharge destination recommendation is: Longterm Facility Barriers to discharge home: Patient needs [...] support to increase distal control for task, [id number] assist Grooming Intervention/Details: Pt with mild initiation [...] stability Mobility Assessment/Intervention: Supine to Sit Mobility Dare Level: Supine->Sit: maximum assist (25% patient effort) [...] management Transfer Assessment/Intervention: Sit to Stand Transfer Dare Level: Sit->Stand: maximum assist (25% patient effort) [...] stability/balance in standing Stand to Sit Transfer Dare Level: Stand->Sit: maximum assist (25% patient effort) Physical Assist: Stand->Sit: 2 person assist Assistive Device: Stand->Sit: gait belt, armed chair Skilled Rationale: Arm in arm, Positioning, Sequencing, Verbal cues, Cues for increased safety, Controlled descent for sitting Skilled Intervention/Details: Stand->Sit: x2; limited eccentric control present Bed-Chair Transfer Dare Level: Bed<->Chair: maximum assist (25% patient effort) [...] to guide hips to chair Toilet Transfer Dare Level: Toilet: maximum assist (25% patient effort) [...] guide hips to BSC Outcome Score(s): CURRENT [facility] Daily Activity Inpatient Short Form Putting on/Taking Off Lower Body Clothin - Total Assistance Bathin - Total Assistance Toiletin - A Lot of Assistance Putting on/Taking Off Upper Body Clothin - Total Assistance Groomin - Total Assistance Eatin - Total Assistance [facility] Activity Raw Score: 7 CURRENT [facility] Activity Functional Limitation/Modifier: 92.44% Currently Impaired in [...] - 01/15/2022 1:20 PM EDT I, Meg Fields OT, provided direct guidance in the room during this patient care session. I attest that all documentation reflects accurate skilled clinical decisions and judgements. Meg Fields OTR/L License Number: [id number] Pager: [phone] * Zarina Mcdonald, PT - 01/15/2022 11:48 AM EDT Acute Physical Therapy Treatment Prior to Admission [facility] score(s): PRIOR LEVEL AM-PAC Mobility Raw Score: 24 PRIOR LEVEL AM-PAC Activity Raw Score: 24 Current AM-PAC score(s): CURRENT AM-PAC Mobility Raw Score: 6 Based on the above AM-PAC score(s) and PT clinical judgment, patient is a good candidate for discharge to Longterm Facility Mobility equipment available at home: none [...] A. Mobility Assessment/Intervention: Supine to Sit Mobility Dare Level: Supine->Sit: dependent (less than 25% patient [...] transfer. Transfer Assessment/Intervention: Sit to Stand Transfer Dare Level: Sit->Stand: maximum assist (25% patient effort) Physical Assist: Sit->Stand: 2 person assist Assistive Device: Sit->Stand: gait belt Skilled Rationale: Verbal cues, Tactile cues Skilled Intervention/Details: Sit->Stand: x1 trial from EOB, x1 trial from BSC. PT provided verbal/tactile cues for hand placement, foot placement, transfer technique and facilitated anterior weight shift to initiate transfer. Bed-Chair Transfer Dare Level: Bed<->Chair: maximum assist (25% patient effort) Physical Assist: Bed<->Chair: 2 person assist Assistive Device: Bed<->Chair: gait belt Skilled Rationale: Verbal cues, Tactile cues, Hand placement, Technique of activity Skilled Intervention/Details: Bed<->Chair: x1 from EOB to BSC to the right, x 1 from BSC to chair to the right. Verbal/tactile cues for instruction on transfer technique and hand placement. Outcome Score(s): CURRENT [facility] Basic Mobility Inpatient Short Form Turning over in bed: 1 - Total Assistance Sitting/standing from chair: 1 - Total Assistance Moving from lying on back to sittin - Total Assistance Moving to and from bed to chair: 1 - Total Assistance Walk in hospital room: 1 - Total Assistance Climbing 3-5 steps with a railin - Total Assistance [facility] Mobility Raw Score: 6 CURRENT [facility] Mobility Functional Limitation/Modifier: 100.00% Currently Impaired in [...] Acute PT Goals Plan of Care by Zarinaabdulaziz Mcdonald PT at 01/15/2022 1:03 PM Version [...] Stability, Insurance Authorization Current Referrals and Status [facility] - RESERVED DOGMAN/WOMAN met with patient, patient brother, and significant other at bedside to discuss SNF options. Patient agreed to discharge to [facility] once medically ready. DOGMAN/WOMAN sent clinical updates to SNF via AIDIN and reserved SNF. SNF cannot accept with NG tube and will need COVID test within 48hours of admission. Patient will also need precert. DOGMAN/WOMAN to continue following. RUI Tiwari Alb[employer]ore [employer] [facility] 8th floor [phone] * Betzy Dexter - 01/14/2022 12:52 PM EDT Images from the original note were not included. Acute Physical Therapy Treatment PRIOR LEVEL AM-PAC Mobility Raw Score: 24 CURRENT AM-PAC Mobility Raw Score: 7 Based on the above AM-PAC score(s) and PT clinical judgment, patient is a good candidate for discharge to Longterm Facility Mobility equipment available at home: none [...] room. Bed Mobility: Supine to Sit Mobility Dare Level: Supine->Sit: maximum assist (25% patient effort) [...] following cues. Transfers: Sit to Stand Transfer Dare Level: Sit->Stand: moderate assist (50% patient effort) [...] anterior weight shift. Stand to Sit Transfer Dare Level: Stand->Sit: moderate assist (50% patient effort) Physical Assist: Stand->Sit: 2 person assist Assistive Device: Stand->Sit: gait belt Skilled Rationale: Verbal cues, Hand placement, Positioning, Arm in arm, Controlled descent for sitting Skilled Intervention/Details: Stand->Sit: x1 to EOB, x1 to recliner with assistance needed to slow descent. Bed-Chair Transfer Dare Level: Bed<->Chair: moderate assist (50% patient effort) [...] O2 as able ID: Ancef completed FEN/GI: [employer] for further recs/evaluation PPX: SCDs, Lovenox Dispo: pending PTOT Please page [phone] ([phone]) with questions. Active Problems: SDH (subdural hematoma) [...] noted Mobility Assessment: Supine to Sit Mobility Dare Level: Supine->Sit: dependent (less than 25% patient effort) Physical Assist: Supine->Sit: 2 person assist Sit to Supine Mobility Dare Level: Sit->Supine: dependent (less than 25% patient effort) Physical Assist: Sit->Supine: 2 person assist Outcome Score(s): [facility]RENT [facility] Daily Activity Inpatient Short Form Putting on/Taking Off Lower Body Clothin - Total Assistance Bathin - Total Assistance Toiletin - Total Assistance Putting on/Taking Off Upper Body Clothin - Total Assistance Groomin - Total Assistance Eatin - Total Assistance [facility] Activity Raw Score: 6 CURRENT [facility] Activity Functional Limitation/Modifier: 100.00% Currently Impaired in [...] current Occupational Therapy Discharge Summary. * Emma Valles PT - 01/13/2022 2:06 PM EDT Images from the original note were not included. Acute Physical Therapy Evaluation PRIOR LEVEL AM-PAC Mobility Raw Score: 24 CURRENT AM-PAC Mobility Raw Score: 6 Based on the above AM-PAC score(s) and PT clinical judgment, patient is a good candidate for discharge to Longterm Facility Current therapy frequency recommendation in acute: [...] sides. Mobility Assessment: Supine to Sit Mobility Dare Level: Supine->Sit: dependent (less than 25% patient effort) Physical Assist: Supine->Sit: 2 person assist Sit to Supine Mobility Dare Level: Sit->Supine: dependent (less than 25% patient [...] Insurance Authorization Current Referrals and Status 1. [facility] Per CM conversation with patient's family, preference for SNF at discharge is [facility]. DOGMAN/WOMAN uploaded current clinical to AIDIN for SNFs to review. DOGMAN/WOMAN will upload PT/OT Evals once they are available. LATONYA Velez, [facility] Medical Social Work [phone] * Nelson Medina MD - 01/13/2022 12:11 [...] date. After telling her she was at [facility], she repeated that back to me [...] able Nelson Medina MD Preliminary General Surgery [place] Electronic Pager [phone] * GIRISH Solis - 01/13/2022 8:20 AM EDT Acute Care [employer] Speech/Language/Cognitive Evaluation Best mode of Communication: spoken language (regular speech) Communication Strategies: repeat directions, allow time, provide cues to improve understanding Discharge Recommendations: Based on the below outcome measures/assessment score(s) and [employer] clinicaljudgment, discharge destination recommendation is: Deferred to PT/OT recomendations related to mobility Barriers to discharge home: Need for 1:1 assist to ensure safety with all PO intake Supporting factors for discharge setting: Impaired swallow function limiting nutritional status andsafety with oral intake Acute [employer] Outcomes Tracking Communicate basic wants and needs?: [...] short-term memory. Pt would benefit from continued [employer] services to address the above deficits. Patient Instruction/Education this session: Pt educated on results/recommendations. Unable to determine if pt demonstrated understanding. Plan for next session: Address goals per POC. Educate family if present. Subjective: Pt asleep upon WOOLEN MILL UTILITY WORKER arrival. Pt easily aroused per verbal cues. [...] hospital on 01/08. Patient found on floor / altered and not acting like herself. Patient [...] 1 Asthenia (A): 1 Strain (S): 1 WO[employer] MILL UTILITY WORKER Outcomes: WO[employer]ILL UTILITY WORKER Outcomes / Standardized Measures Score The Orientation [...] unable to respond. Total Score: 12 Acute [employer]ILL UTILITY WORKER Goals Plan of Care by GIRISH Solis at 01/13/2022 8:20 AM Version 1 of 1 Problem: WO[employer] MILL UTILITY WORKER - Dysphagia Goal: PO Trial 3 Description: Patient will swallow trials of advancing solids demonstrating appropriate alertness, timely/effective mastication, bolus formation and oral bolus transit without overt clinical signs/symptoms of aspiration, across 1-3 sessions to determine readiness for diet advancement. 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 Outcome: Ongoing Problem: WO[employer] MILL UTILITY WORKER - Cognition Goal: Orientation Goal Description: Patient will recall/implement use of orientation strategies, given min -no cues, to demonstrate improved awareness and insight as measured by achieving a 27/30 on The Orientation Log, across 1-2 sessions. Outcome: Ongoing I was assisted by Elda Munoz, GIRISH for today's session. Speech Language Pathologist: GIRISH [...] on the below outcome measures/assessment score(s), and WO[employer] MILL UTILITY WORKER clinical judgment, discharge destination recommendation is: Deferred to PT/OT recomendations related to mobility Barriers to discharge home: Need for 1:1 assist to ensure safety with all PO intake Supporting factors for discharge setting: Impaired swallow function limiting nutritional status andsafety with oral intake Acute WO[employer] UTILITY WORKER Outcomes Tracking Communicate basic wants and needs?: [...] intake and will need nutrition via DHT. WOOL[employer] MILL UTILITY WORKER will continue to follow along for diet management. Subjective: Pt seen for swallowing following speech/cognition evaluation. Pt requiring cues to follow directions and sustain attention to tasks. Pt reports minimal discomfort when swallowing, but wasunable to provide further explanation. Pain: General Pain Documentation (Adult, OB, Peds) Presence of Pain: denies pain/discomfort Respiratory Status: Nasal Cannula: 2L Acute [employer] UT[employer] WORKER Goals Plan of Care by GIRISH Solis at 01/13/2022 8:20 AM Version 1 of 1 Problem: [employer] UTILITY WORKER - Dysphagia Goal: PO Trial 3 Description: [...] current Speech Therapy Discharge Summary * GIRISH Lestre - 01/12/2022 3:00 PM EDT Acute Care Speech Language Pathology Treatment Diet Recommendations: Recommended Method of Nutrition: NPO Medications: non-oral Type of Cues/Supervision: 1:1 supervision Assistance: nurse/aide Discharge Recommendations: Based on the below outcome measures/assessment score(s), and WO[employer] UTILITY WORKER clinical judgment, discharge destination recommendation is: Deferred to PT/OT. At discharge, recommend further WO[employer] UTILITY WORKER services targeting: dysphagia Supporting factors for discharge setting: Impaired swallow function limiting nutritional status andsafety with oral intake Acute WO[employer] UTILITY WORKER Outcomes Tracking Communicate basic wants and needs?: [...] Cannula: respirations easy/unlabored. O2 sats 91%. Acute [employer] UTILITY WORKER Goals Plan of Care by GIRISH Lester at 01/12/2022 3:00 PM Version 1 of 1 Problem: [employer] UTILITY WORKER - Dysphagia Goal: PO Trial 2 Description: [...] nods her head that she is tired. WO[employer] UTILITY WORKER provided brief education regarding rationale for swallow treatment/re-assessment with no verbal response from patient. WO[employer] UTILITY WORKER utilized moistened oral toothetes on pt's lips with no response noted and presented both ge spoon between lips and a spoon with a small ice chip between lips with no labial pursuit and nonotable response or even trying to pull head away. WOOL[employer] MILL UTILITY WORKER communicated same with RN. Patient Instruction/Education this session: Education provided regarding rationale for treatment session. Pt will benefit from ongoing education. Plan for next session: Ongoing re-assessment to determine readiness for instrumental vs readiness for diet initiation. WO[employer]ILL UTILITY WORKER Outcomes: FOIS 1 I was assisted by Katheryn Colon, [employer] UT[employer] WORKER Student for today's session. and I used [...] re-attempt as able/appropriate. No charge Ying Linda MS, CCC-[employer]OL[employer]ILL UTILITY WORKER #[id number] Pager# [phone] Can also be reached via [employer] secure chat Wed-Wed between [phone] * Radha Luke RN - 01/12/2022 12:57 PM EDT Discharge Planning Patient Assessment Admission Assessment Patient Assessment Completed: Yes Anticipated discharge disposition: Longterm Facility Reason for Admission: SDH s/p R hemicraniectomy on 01/08/2022 Is the patient able to participate in the assessment?: No Information source: Spouse, Other (brother) Information Source Name/Contact: dex patricia Significant Other [phone] Demographics Verified and Updated: Yes Has the patient been admitted to any hospital in the last 30 days?: No Advanced Care Planning Has the patient completed Advance Directives?: Not Completed Referral to Social Work for Advance Care Planning? : Patient Declines Legal Next of Kin Does the patient have a Guardian?: No Spouse: Yes Name and Contact information: dxe patricia Significant Other [phone] Referral to Social Work to Identify Legal [...] Is the patient from a facility or fpc?: No Patient lives with: Spouse or Partner [...] on Anticoagulation? : No No Pharmacies Listed Vehicle Glass Technician Does the patient or wine sales representative express financial concerns? : No Employed?: Retired Coping/Stress Concerns about patient s coping and stress?: No Concerns about patient s caregiver s coping and stress?: No Values and Beliefs Cultural or jain practices that may impact discharge planning and/or medical care?: No Initial Discharge Planning Anticipated discharge disposition: Longterm Facility Transportation Available for Discharge: Ambulance Anticipated DME: walker Anticipated Services at Discharge: Longterm, Physical Therapy, Occupational Therapy Patient Assessment Completed: [...] assessment. Introduced myself and explained role of case finishing machine adjuster. Spouse and brother at bedside, both are agreeable that patient will likely need SNF placement afterdischarge and request discharge to [facility]. SW updated. CM and SW will continue to follow to assess ongoing needs and assist with discharge planning. Case Management Plan accounting practice manager will make all appropriate referrals and follow up appointments and order all necessaryequipment and supplies. Paul Tran RN, BSN, ACM Clinical Acquisition Lead * Pete Sorto PT - 01/12/2022 11:39 AM EDT Physical [...] 130) Na/K+/Phos/Mg/Ca: 144/4.1/2.2/1.7/-- (01/12 130) Bun/Creat/Cl/CO2/Glucose: 16/0.55/106/32/124 (01/12 130) Imaging: postop CTH with expected findings A/P: Luiza May is a 66 y.o. female p/w SDH s/p R hemicraniectomy on 01/08/2022 Neuro: neuro checks, dc drain today, incision open to air Cards: SBP<160 Resp: per ICU, wean O2 as able ID: Ancef completed FEN/GI: WO[employer] UTILITY WORKER for further recs/evaluation PPX: SCDs, Lovenox Dispo: pending PTOT Please page [phone] ([phone]) with questions. Active Problems: SDH (subdural hematoma) Anemia (Low HGB) Present on Admission: SDH (subdural hematoma) * Nicole Mccracken OT - 01/12/2022 8:13 AM EDT Occupational Therapy Attempt Note 01/12/2022 OT Therapy Completed: Attempted Attempted Reason: Patient is not medically optimized to tolerate therapy program (Pending further Ortho Spine recs due to T12 Compression Fx) Nicole Mccracken OT Time In: 812 Time Out: 812 Total Visit Time: 0 minutes Total Treatment Time (skilled, billable minutes): 0 minutes * Crys Brar MD - 01/11/2022 10:31 AM EDT NEUROSURGERY PROGRESS NOTE: 01/11/22 S: NANAVID O: PE: awake Ox2 PERRL EOMI FS [...] WITHOUT meds - will reach out to [employer] UT[employer] WORKER for further recs/evaluation PPX: SCDs, Lovenox Dispo: pending PTOT Please page [phone] ([phone]) with questions. Active Problems: SDH (subdural hematoma) Anemia (Low HGB) Present on Admission: SDH (subdural hematoma) * Pepper Mcgowan, CITLALI - 01/11/2022 8:30 AM EDT Nutrition Consult: [...] free water/d. 2. Diet: NPO. Advancement per WO[employer] MILL UTILITY WORKER. 3. RD to follow. Pt at nutrition risk secondary to acute medical condition, NPO status and TF S/O: Luiza May is a 66 y.o. female who presented with acute right SHD and she is now POD#3 s/p decompressive craniectomy. She is on nasal cannula this morning. Past History As above + CVA, COPD on home O2 Nutrition Hx: Swallow eval completed 01/10 and WO[employer] UTILITY WORKER recommended NPO status. DHT in place for [...] 55 kg, admit wt Estimated Kcal Needs: 9625-3449 (25-30 kcal/kg admit wt) Estimated Pro Needs: 80-110 (1.5-2 g/kg admit wt) Estimated fluid needs: 7275-7766 (30-35 ml/kg admit wt) Malnutrition Statement Indications of Malnutrition: Unable to assess- unable to obtain nutrition hx based on the AND/ASPEN Malnutrition Criteria [address],LD, CNSC, RN Pager: [phone] * GIRISH Childers - 01/10/2022 11:50 AM [...] on the below outcome measures/assessment score(s) and WO[employer] UTILITY WORKER clinicaljudgment, discharge destination recommendation is: Deferred to PT/OT recomendations related to mobility Barriers to discharge home: Need for 1:1 assist to ensure safety with all PO intake Supporting factors for discharge setting: Impaired swallow function limiting nutritional status andsafety with oral intake Acute [employer] UT[employer] WORKER Outcomes Tracking Communicate basic wants and needs?: [...] NSG for a right-sided decompressive craniectomy. Prior WO[employer] UTILITY WORKER history: None on file. Current Method of Nutrition: Route of Nutrition: NPO Respiratory Status: O2 Device: nasal cannula O2 Sat (%): 99 % Resp Rate: 22 Subjective: Pt continuously stating Oh god throughout evaluation however unable to state if in pain. Required encouragement for po trials. Family members at bedside. RN entered room at end of evaluation and WO[employer] UTILITY WORKER informed RN of recommendations from today's evaluation. [...] aspiration with ice chips or puree solids. [place] Swallow Screen: [place] Swallow Screening Screening Exclusion Criteria: NPO order for other medical/surgical reasons [place] Swallow Screening Result: postpone until no longer [...] to reduce risk o f disuse atrophy. WO[employer] UTILITY WORKER to follow for ongoing dysphagia management and to determine readiness for diet initiation vs need for instrumental swallow study. Plan for Next Session: determine readiness for diet initiation vs need for instrumental swallow study Patient Instruction/Education Provided this Session: educated family regarding role of WO[employer] UTILITY WORKER and purpose of NPO recommendations Acute [employer] UT[employer] WORKER Goals Plan of Care by GIRISH Childers at 01/10/2022 11:50 AM Version 1 of 1 Problem: [employer] UTILITY WORKER - Dysphagia Goal: PO Trial 2 Description: [...] current Speech Therapy Discharge Summary * Dionicio Pacheco APRN-CLEAN UP WORKER - 01/10/2022 10:47 AM EDT NEUROCRITICAL [...] admitted to [facility] post-op right-sided decompressive craniectomy, wagner-culture 01/09: Extubated 01/10 PAPI [place] tx PHYSICAL EXAM GENERAL:Alert, no acute distress HEENT: [...] >92%; wean FiO2 as tolerated - - SUJ8YER, encourage pulmonary toileting - Continue home breathing [...] - Bowel regimen: - Last Bowel Movement: (SENIOR APPLICATIONS ANALYST) - Senna, miralax - 01/10 WO[employer] UTILITY WORKER eval recommend NPO DHT placed TF initiated [...] Acute Stress Recent Labs 01/08/22 1656 01/08/22 19101/09/22 0158 01/09/22 0227 01/09/22 2320 WBC -- [...] 01/09 Ancef Maame-op TBD 01/10 - 01/09 wagner cultured ON for fever Heme/Onc: Acute Blood Loss Anemia Thrombocytopenia Recent Labs 01/08/22 19101/09/22 0158 01/09/22 2320 WBC 9.08 12.22* 12.90* [...] prophylaxis: Pepcid (indication: mechanical ventilation) - Lines/Tubes: [place]: inserted 01/08, (indication:periop) remove 01/10 CVC: inserted 01/08, (indication:IV access) Remove 01/10 [place]: inserted 01/09, (indication:periop intake/output management) Enteral access: inserted 01/08, OG [ ] gastric; [ ] post-pyloric Discussed with [facility] Attending, EMELY Stevens Service pager: [phone] Service [place] #: [phone] (Beds [phone] and beds), [place] #: [phone] (Beds [phone] and [facility]) 01/10/22 10:47 AM * Veronica Velez MD - 01/10/2022 8:54 AM EDT I have seen and examined the patient with the resident/INSTITUTE DIRECTOR today. I have personally reviewed all theimaging [...] right-sided subdural hematoma with midline shift 1. CITY DISPATCHER: Status post right-sided decompression craniectomy for subdural [...] DVT porph Tr out Veronica Velez MD Reading Specialist Department of Neurology * Crys Brar MD [...] Lovenox Dispo: pending PTOT Please page [phone] ([phone]) with questions. Active Problems: SDH (subdural hematoma) [...] Negative 01/09/2022 BENZOUR Presumptive Positive (A) 01/09/2022 [id number] Negative 01/09/2022 BUPREN Negative 01/09/2022 COCUR Negative 01/09/2022 METHADUR Negative 01/09/2022 CANNABINOIDS Negative 01/09/2022 FENTU Presumptive Positive (A) 01/09/2022 OPIATE Presumptive Positive (A) 01/09/2022 OXYCODONE Negative 01/09/2022 Lab Results Component Value Date PH 7.48 (H) 01/09/2022 WBCURINE 6-9 (A) 01/09/2022 No results found for: CTUR, GCUR, UAREFLXCULTNo results found for: KUGPPLK8GD, GOTMLHS0GQ [x] I have read and reviewed the [...] [x] I have read and reviewed the wardrobe image consultant recommendations TRAUMA CATALOGUE OF INJURIES & [...] resident note above. No additional findings noted. Dioniico Mckinney MD metal fabricating supervisor * Radha Luke RN - 01/09/2022 1:09 PM EDT attempted to complete initial assessment, patient sleeping, difficult to rouse. will continue to follow and attempt to complete initial assessment when patient is better able to participate in interview. * Nicole Mccracken OT - 01/09/2022 8:44 AM EDT Occupational Therapy Attempt Note 01/09/2022 OT Therapy Completed: Attempted Attempted Reason: Patient is not medically optimized to tolerate therapy program (no bone flap and no order for helmet. Also needs drains removed before fitting. Canceling consult. Please re-consult when appropriate) Nicole Mccracken OT Time In: 0844 Time Out: 0844 Total Visit Time: 0 [...] EDT Speech Language Pathology Attempt Note 01/09/2022 WO[employer] M[employer] UTILITY WORKER Therapy Completed: Attempted Attempted Reason: Patient is not medically optimized to tolerate therapy program. Pt intubated, SLPto sign off services. Please re-consult when/if appropriate. GIRISH Solis Time In: 08 Time Out: 08 Total Visit Time: 2 minutes Total Treatment [...] Quinn - 01/08/2022 3:26 PM EDT 01/08/22 [facility] Social Work Screenings Screening patient has qualified for Trauma Patient appropriate for screening? No - intubated BURTON Hurley, [facility] [place] Fishing Boat Crewman, Emergency Dept. [phone] Available via Secure Chat documented in this encounterChildren[facility] Hospital Discharge instructions* Discharge Instructions* Rakesh Ta [...] unless otherwise directed. Call the office at [phone] to schedule a time to come in, [...] questions before your appointment. documented in this encounterChildren's [facility]07-26-2022 Reason for referral (narrative)* (Routine) Specialty Diagnoses / Procedures Referred By Contac t Referred To Contact Rakesh Ta MD [address] [place] [phone] Referral ID Status Reason Start Date Expiration Date Visits Re quested Visits Authorized * (Routine) Specialty Diagnoses / Procedures Referred By Contac t Referred To Contact Lowell Bryant MD [address] [place] [phone] Referral ID Status Reason Start Date Expiration Date Visits Re quested Visits Authorized * Speech Therapy (Routine) - New Request Specialty Diagnoses / Procedures Referred By Contac t Referred To Contact Severo Jurado MD [address] [place] [phone] Referral ID Status Reason Start Date Expiration Date V isits Requested Visits Authorized [id number] New Request 01/19/2022 02/13/2023 1 1 * (Routine) Specialty Diagnoses / Procedures Referred By Contac t Referred To Contact Joy Rawls Jr., MD [address] [place] [phone] Referral ID Status Reason Start Date Expiration Date Visits Re quested Visits Authorized * (Routine) Specialty Diagnoses / Procedures Referred By Contac t Referred To Contact [facility] [address] [place] [phone] Referral ID Status Reason Start Date Expiration Date Visits Re quested Visits Authorized * (Routine) Specialty Diagnoses / Procedures Referred By Contac t Referred To Contact Dionicio Pacheco APRN-CNP [address] [place] [address] Referral ID Status Reason Start Date Expiration Date Visits Re quested Visits Authorized * (Routine) Specialty Diagnoses / Procedures Referred By Contac t Referred To Contact Deborah Amador APRN-CNP [address] [phone] Referral ID Status Reason Start Date Expiration Date Visits Re quested Visits Authorized * (Routine) Specialty Diagnoses / Procedures Referred By Contac t Referred To Contact Deborah Amador APRN-CNP [address] [phone] Referral ID Status Reason Start Date Expiration Date Visits Re quested Visits Authorized * (Routine) Specialty Diagnoses / Procedures Referred By Contac t Referred To Contact Deborah Amador APRN-CNP [address] [phone] Referral ID Status Reason Start Date Expiration Date Visits Re quested Visits Authorized * (Routine) Specialty Diagnoses / Procedures Referred By Contac t Referred To Contact Deborah Amador APRN-CNP [address] Room [place] [phone] Referral ID Status Reason Start Date Expiration Date Visits Re quested Visits Authorized * (Routine) - Pending Review Specialty Diagnoses / Procedures Referred By Contac t Referred To Contact Procedures DVT/VTE RISK ASSESSMENT Deborah Amador APRN-CNP [address] Room [place] [phone] Referral ID Status Reason Start Date Expiration Date V isits Requested Visits Authorized [id number] Pending Review 01/09/2022 02/03/2023 1 1 * (Routine) - Pending Review Specialty Diagnoses / Procedures Referred By Contac t Referred To Contact Procedures NO PHARMACOLOGICAL DVT PROPHYLAXIS Severo Jurado MD [address] [place] [address] Referral ID Status Reason Start Date Expiration Date V isits Requested Visits Authorized [id number] Pending Review 01/09/2022 02/03/2023 1 1 * (Routine) - Pending Review Specialty Diagnoses / Procedures Referred By Contac t Referred To Contact Procedures DVT/VTE RISK ASSESSMENT Severo Jurado MD [address] [place] [address] Referral ID Status Reason Start Date Expiration Date V isits Requested Visits Authorized [id number] Pending Review 01/09/2022 02/03/2023 1 1 * Radiology (Emergency) - Pending Review Specialty Diagnoses / Procedures Referred By Contjuan manuel t Referred To Contact Procedures ECG Jenni Zavala MD [address] [place] [address] Referral ID Status Reason Start Date Expiration Date V isits Requested Visits Authorized [id number] Pending Review 01/08/2022 02/02/2023 1 1 * (Routine) Specialty Diagnoses / Procedures Referred By Contjuan manuel lubin Referred To Contact Kailee Lyon MD [address] [place] [address] Referral ID Status Reason Start Date Expiration Date Visits Re quested Visits Authorized [facility] Procedure note* GIRISH Alcala - 01/20/2022 2:20 [...] on the below outcome measures/assessment score(s), and WOOL[employer] MILL UTILITY WORKER clinical judgment, discharge destination recommendation is: Deferred to PT and/or OT discharge recommendations related to mobility and/or ADLs. At discharge, ongoing speech therapy services are recommended to target: cognitive-linguistic deficits. Acute WOOL[employer] MILL UTILITY WORKER Outcomes Tracking Communicate basic wants and needs?: [...] Respiratory Status: O2 Sat (%): 94 % (01/21 1152) O2 Device: room air (01/21 1152) Assessment: Consistencies Assessed: This study was conducted [...] with feeding as needed. No additional skilled WOOL[employer] MILL UTILITY WORKER services indicated for dysphagia. Plan for next [...] Clinical Impression Frequency: No therapy recommended Acute WOOL[employer] MILL UTILITY WORKER Goals Notes from 01/20/2022 3:02 AM through 01/20/2022 3:02 PM Goal 1: Patient will demonstrate understanding regarding Speech-Language Pathology role and plan ofcare and evaluation results/recommendations to improve awareness of condition/WOOLEN MILL UTILITY WORKER role by the time of discharge. Results and recommendations described above reviewed with pt. Pt verbalized understanding. Goal met. Time In: 1420 Time Out: 1440 Total Visit Time: 20 minutes Total Treatment Time (skilled, billable minutes): 15 minutes I used gloves, facemask and protective eye shield in today's patient interaction. I was assisted by no one during this visit. Therapist: PAU Alcala, [facility]WOOLEN MILL UTILITY WORKER, [place] License # [id number] Pager #: [phone] Upon discontinuation of Acute Care Speech Therapy Services or patient discharge from the hospital this note represents the current Speech Therapy Discharge Summary documented in this encounterChildren[facility]07-14-2022 Consult note* Juana Brown, DO - 01/15/2022 [...] inhaler 2 puff, 2 puff, 4x daily icdomeides-bgumuvzkpkkupj-Dovefqhayk (BREZTRI) 160-9-4.8 MCG/ACT inhaler 1 puff, 1 [...] COMPONENT TYPE Red Cells, Leukoreduced UNIT NUMBER [id number] UNIT STATUS issued PRODUCT CODE [id number] Product ABO/RH(D) NUMBER [id number] EXPIRATION DATE [id number] ABO/RH(D) TYPE APOS Product ABO/RH(D) APOS TYPE [...] Dr. Nelson Carmona on 01/08/2022 3:25 PM. DUPLEX VENOUS EXTREMITY UPPER RIGHT (Results Pending) [...] questions M-F 8a-5p at [phone]. The on-call international affairs vice president can be reached outside these hours at the same pager number [phone]. Case staffed with attending psychiatrist, Dr. Castro. [...] alcohol abuse, and anxiety who presented to [facility] ED after a fall at home. She was found to have a subdural hematoma at outside hospital, intubated, and transferred to [facility] for further management. Psychiatry was consulted [...] of withdrawal is lower at this point. Annia Castro MD Line Department Supervisor Consultation-Liaison Psychiatry * Gerard Segovia MD - [...] Gerard Segovia MD Orthopaedic Surgery, PGY-2 Pager #[phone] Associated attestation - Pepper Childs MD - 01/09/2022 8:10 AM EDT Orthopaedic Surgery Attending (Spine) I discussed the findings, imaging studies and therapeutic plan with the resident/fellow. I agree with the history, physical examination, and medical decisions as outlined. Pepper Childs MD * Elin Boswell MD - 01/08/2022 3:46 PM EDTAssociated Order(s): IP CONSULT TO SURGERY - TRAUMA TRAUMA AND ACUTE CARE SURGERY - TRAUMA H & P Patient Name: Luiza May 66 y.o. female Date of Evaluation: 01/08/2022 Trauma Attending: Dr. Hola MAR: TRAUMA LEVEL: Trauma Consult Inter-facility Transfer: Yes Luiza May is a 66 y.o. female transported to [facility] s/p Found down. Patient was found down at home. Unknown how long patient was down. She takes ASA, noother blood thinners reported. She first presented to an OSH. CT Imaging was concerning for mncmh-pm-ejlj midline shift of 12 mm. Patient was [...] LACT 1.3 01/08/2022 No results found for: [id number] Lab Results Component Value Date ETOHSERUM <10 01/08/2022 AMPMETUR Negative 01/08/2022 BENZOUR Negative 01/08/2022 [id number] Negative 01/08/2022 BUPREN Negative 01/08/2022 COCUR Negative [...] the treatment team or page the Consult Resident#[id number] (Web Exchange, search Acute Care Surgery > Consults - Emergency General Surgery/Trauma Consults) Elin Boswell MD Vascular Surgery, PGY-2 Associated attestation - Josue Simental MD - 01/09/2022 7:50 AM EDT Images from the original note were not included. SURGERY ATTENDING ATTESTATION I, Josue Simental MD, was present and independently assessed and performed a physical examination of . Luiza May on the date of service noted [...] blood thinners reported. She first presented to [facility]. CT Imaging was concerning for gozvz-zz-gcgo midline shift of 12 mm. Patient was [...] questions or concerns. Josue Simental MD, FACS metal fabricating supervisor Division of Trauma, Critical Care, and Burn [facility] * Lindsay Lemus MD, PhD - 01/08/2022 2:50 PM EDTAssociated Order(s): IP CONSULT TO SURGERY - NEURO Neurosurgery Consult Note Reason for Consult: fall, subdural, with midline shift from R to L 12 mm Contact Number: [phone] [facility] Ms. Luiza May is a 66 y.o. [...] at this time. documented in this encounterOS[facility] History and physical note* Deborah Amador APRN-CLEAN UP WORKER - 01/08/2022 9:57 PM EDT NEUROCRITICAL [...] admitted to NCCU post-op right-sided decompressive craniectomy, wagner-culture REVIEW OF SYSTEMS Review of systems not [...] ETCO2 (mm Hg) (Respiratory Monitoring): 42 (01/08 1549) - Goal SpO2 >92%; wean FiO2 as tolerated - pH/PCO2/PO2/HCO3: 7.48/38/139/28 (01/09 227) - NRU3WCW, encourage pulmonary toileting - 01/09 CXR: pending [...] electrolytes replaced per NCCU protocol Recent Labs 01/08/22 1656 01/08/22 19101/09/22 0158 SODIUM 139 141 141 POTASSIUM 4.3 [...] - Bowel regimen: - Last Bowel Movement: (SENIOR APPLICATIONS ANALYST) - Senna, miralax Endo: Risk for Stress-Induced Hyperglycemia Acute Hypoglycemia - Goal blood glucose 140-180 Recent Labs 01/08/22191101/09/22 0147 01/09/228 01/09/22 0247 GLUCOSE 106* 76 85 95 - Insulin SSI: Q6H ID: Acute Leukocytosis 2/2 Acute Stress Recent Labs 01/08/22 1656 01/08/22191101/09/228 01/09/22 0227 WBC -- 9.08 12.22* -- [...] Acute Blood Loss Anemia Thrombocytopenia Recent Labs 01/08/22191101/09/22 0158 WBC 9.08 12.22* RBC 2.41* 3.28* [...] prophylaxis: Pepcid (indication: mechanical ventilation) - Lines/Tubes: [place]: inserted 01/08, (indication:periop) CVC: inserted 01/08, (indication:IV [...] procedures. Discussed with NCCU Attending, Dr. margarito Amador APRN-[facility] Service pager: [phone] Service [place] #: [phone] (Beds 3572-0560 and beds), [place] #: [phone] (Beds [phone] 1053 and [facility] beds) 01/09/22 4:43 AM documented in this encounterOSU [facility] Emergency department Note* Nadia Avendano RN - 01/08/2022 3:56 PM EDT Patient taken to OR with this RN * Nadia Avendano RN - 01/08/2022 3:48 PM EDT Neurosurg at bedside, patient to go to OR at this time. RT called to bedside. * Kailee Lyon MD - 01/08/2022 2:43 PM EDT Medical necessity for IV contrast, trauma. Kailee Lyon MD Resident 01/08/22 1443 * ROSCOE Quinn - 01/08/2022 2:41 PM EDT SW responded to Level A Hemorrhagic Stroke Alert brought in by [facility] 3 as a transfer from [facility]. Patient was intubated at the OSH, and multiple family members were present and aware of her transfer. Daughter (Ameena Zhang, ) was assisting with care planning and will be coming to this hospital. SW will be available for support as needed while patient is in the ED. BURTON Hurley, [facility] [employer], Emergency Dept. [phone] Available via Secure Chat * Nadia Avendano RN - 01/08/2022 2:39 PM EDT Patient in CT receiving wagner scan at this time. * Nadia Avendano RN - 01/08/2022 2:34 PM EDT 100mcg fentanyl given IVP at this time * Nadia Avendano RN - 01/08/2022 2:33 PM EDT Patient in CT at this time, given 2mg versed at this time. * Nadia Avendano RN - 01/08/2022 2:26 PM EDT Pt transferred from [facility] for hemorrhagic stroke. [...] RN - 01/08/2022 2:26 PM EDT Bed: [facility] Expected date: 01/08/22 Expected time: Means of [...] hospital head imaging revealed subdural hematoma with ucfwb-kr-ipcc midline shift of 12 mm. Patient was [facility]ively int[facility]. Blood sugar wasnormal at outside hospital. In our ED we consulted Neurosurgery and Trauma, patient was intubated and unable to give review of systems or responsive exam so she was wagner scanned. She withdrew from pain, open her [...] performed during the hospital encounter of 01/08/22 [facility] 7 - ED Result Value Ref [...] 1.05 (L) 1.16 - 3.51 K/uL Abs [place] Auto 0.48 0.22 - 0.87 K/uL Abs [...] including coags and CK, CT head and wagner scan, neurosurgery consultation, and trauma consultation. Will try to avoid sedation at this time unless patient becomes severely agitated in order to get more accurate neuro checks/exams. Neurosurgery will take patient for craniotomy, admit to neurosurg. A wvxdld-mw-pupl dictation tool was used in the production of this document and all attempts were made for proper editing but errors may occur. Kailee Lyon MD Emergency Medicine, PGY2 Kailee Lyon MD Resident 01/08/22 1548 * Lakisha Gray RPH - 01/08/2022 2:13 PM EDT Department of Pharmacy Emergency Department Stroke Alert Response Note Patient Name: Luiza May Room/Bed: Room/bed info not found A Pharmacist responded to the stroke alert. The patient was determined to be having a hemorrhagic stroke. The [facility] order set ED: Confirmed Stroke/ICH - Secondary was placed by Dr. Kailee Lyon for ongoing care. Pertinent medications received prior to arrival: - Keppra 1500 mg IV x1 (per [facility]) - Fentanyl 100 mcg IV (total) - Propofol infusion (paused on arrival) A targeted home medications list was obtained from [email or web address] and medical chart and has been updatedin [facility] . The patients was determined to be [...] further questions. Name: Lakisha Gray RPH Phone: [phone] Date/Time: 01/08/2022 2:13 PM * Pablo Barraza MD - 01/08/2022 10:48 AM EDT ED [...] 1050 Pablo Barraza MD 01/21/22 1051 Pablo aBrraza MD 01/21/22 1051 documented in [facility] encounter[facility] Miscellaneous Notes* Telephone Encounter - Priscila Magaña - 12/29/2021 2:09 PM EDT Luiza May is calling Maryam Franco MD today she is calling with: congestion; coughing, wheezing; started on 12/28; stated previously she was prescribed a Z-Mina. Patient has been identified by name and birthdate. Duration of symptoms: N/A Person calling: self Call patient at: at home [phone] (home) Was an appointment scheduled: No Closing statement: Symptom Call: Thank you for calling [facility], your call is very important. A nurse will call in approximately 2-4 hours during business hours. If this is an emergency, please contact 911. Priscila Magaña documented in this encounterSt. [facility] History of Present illness Narrative* Maryam Franco [...] Cancer Mother R/T LUNG CANCER Heart Father PR Cancer Sister LUNG Social History Tobacco Use [...] <130/80 Maryam Franco MD documented in this encounterSt. [facility]06-04-[facility] History of Present illness Narrative* Pablo Bedoya APRN.JAMES - 12/06/2021 10:50 AM EDT Nontoxic-appearing female [...] agrees with plan of care. Pablo Bedoya APRN.JAMES documented in this encounterSt. Mary[facility]06-04-2022 Miscellaneous Notes* Telephone Encounter - Gisell Mendoza RN - 12/06/2021 9:12 AM EDT Patient returned call and given provider's message below and patient verbalized understanding. Tyrone Mendoza RN * Telephone Encounter - Katty Alvarado Ma - 12/06/2021 9:02 AM EDT Left [...] her some ativan * Telephone Encounter - Nicole Rudd RN - 12/04/2021 2:52 PM EDT Pt called in and reports she needs something stronger to help with her nerves. She states she feelsreal edgy lately and the Lexapro isn't working. Pt asked for Ativan or something like it. Reports she uses [facility] in [place]. Please call and advise. documented in this encounterSt. Mary'[facility]05-23-2022 Miscellaneous Notes* Telephone Encounter - Irena Lomeli [...] KHOA: No Please review and advise. Joanie Gillette documented in this encounterSt. Mary'[facility]05-19-2022 Miscellaneous Notes* Telephone Encounter - Katty Alvarado Ma - 11/20/2021 4:00 PM EDT Addressed in OV. * Telephone Encounter - Katty Alvarado Ma - 10/15/2021 5:23 PM EDT Placed on Joan's desk for review. * Telephone Encounter - Joan Johnson APRN.CNP - 10/15/2021 1:[address] on franki or Dr. Franco's desk when received. Thank you Joan Johnson APRN.JAMES * Telephone Encounter - Miranda Connell LPN - 10/15/2021 11:26 AM EDT [facility]en from [facility] calling patient ECHO that was scheduled to be done at [facility] had been denied andcancelled due to patient had ECHO done while she was in [facility] on September 23, 2021. Carmen is faxing a copy of that ECHO to the office for PCP. documented in this encounterSt. Mary'[facility]05-05-2022 Miscellaneous Notes* Telephone Encounter - Nancy Ordaz RN - 11/06/2021 3:47 PM EDT Spoke with patient. Given message from provider's office. Patient verbalizes understanding. Nancy Ordaz RN * Telephone Encounter - Katty Alvarado Ma - 11/06/2021 3:43 PM EDT Left message for return call. * Telephone Encounter - Katty Alvarado Ma - 11/06/2021 3:42 PM EDT ----- Message from Maryam Franco MD sent at 11/06/2021 2:38 PM EDT ----- Mild anemia, the rest of the blood work is normal. Mag is normal Regards, Maryam Franco MD documented in this encounterSt. Mary'[facility]05-02-20[facility] History of Present illness Narrative* Maryam Franco [...] She thinks something that [facility]. Says she did not get [...] Cancer Mother R/T LUNG CANCER Heart Father PR Cancer Sister LUNG Social History Tobacco Use [...] medication. Maryam Franco MD documented in this encounterSt. Mary'[facility]04-22-2022 Miscellaneous Notes* Telephone Encounter - Nava Connell LPN - 10/24/2021 7:43 AM EDT [...] advise. Katheryn Lynn Pss documented in this encounterSt. Mary'[facility]04-14-2022 Miscellaneous Notes* Telephone Encounter - Joan Johnson [...] advise, Sushila Espinoza RN documented in this encounterSt. Mary'[facility]04-12-2022 Miscellaneous Notes* Telephone Encounter - Gisell Mendoza RN - 10/14/2021 9:38 AM EDT Patient calling in to request pre-certification for ECHO to be done at [facility]. Pre- certification information has been completed as well as [email or web address] has been emailed. Gisell Mendoza RN * Telephone Encounter - Joan Johnson APRN.CNP - 10/13/2021 3:32 PM EDT Noted. Joan Johnson APRN.CNP * Telephone Encounter - Sushila Espinoza RN - 10/13/2021 3:20 PM EDT FYI--Patient calls to report that she is having her ECHO completed at [facility] and needs prior-authorization. Referral placed for ECHO to be done at [facility]. Patient aware authorization is pending. Sushila Espinoza RN documented in this encounterSt. Mary'[facility]04-08-2022 Miscellaneous Notes* Telephone Encounter - Joan Johnson APRN.CNP - 10/10/2021 3:20 PM EDT PDMP website checked and validated. All prescriptions have been APPROPRIATELY filled. No suspiciousactivity was identified. 10/10/2021 by Joan Johnson APRN.JAMES * Telephone Encounter - Irena Lomeli LPN [...] patient. Priscila Pugh Pss documented in this encounterSt. Mary'[facility]04-06-2022 History of Present illness Narrative* Maryam Franco [...] for a couple days. Luiza was in [place] because her son invited her there. That was in the first week of September. Therewas a samaria of wind when she was outside and she fell and hit her head. She says that since that time multiple things have ensued. After hitting her head she was sent by 911 to [facility] had aCT of the head and neck and nothing abnormal was found. Following that she had some nausea and developed feeling of being ill which was a couple weeks later checked out at [facility].They found her to be extremely constipated. All her labs were normal including the blood counts andliver kidneys they sent her home because she wanted to go home and they were not sure whether to admit her. She still did not feel better and so the next day she went back to the [facility] and interestingly her creatinine which was 0.8 the past day now became 4.5. This was an extremely significant change so she was admitted for GUME given IV fluids and she started having pedal edema. X-rays at that time revealed cardiomegaly but she had not had any signs of failure. After coupledays in the [facility] for treatment for constipation with pedal edema she started having diarrhea and notes today that her bowel movements have been sort of regular. From the [facility] she was sent [facility] [place] [facility] [place] [...] Cancer Mother R/T LUNG CANCER Heart Father PR Cancer Sister LUNG Social History Tobacco Use [...] refill. ASSESSMENT/PLAN: 1. GUME (acute kidney injury) ([facility]) - ICD9: 584.9, ICD10: N17.9 (primary diagnosis) [...] SYRINGE Maryam Franco MD documented in this encounterSt. Mary'[facility]03-28-2022 Miscellaneous Notes* Telephone Encounter - Nicole Rudd RN - 09/29/2021 4:25 PM EDT Ayanna with [facility] called and is notified of providers message. She voices understanding. Nicole Rudd RN * Telephone Encounter - Joan Johnson APRN.CNP - 09/29/2021 4:14 PM EDT Provider agrees with orders and will follow. Thank you Joan Johnson APRN.JAMES * Telephone Encounter - Ginny Moreland RN - 09/29/2021 11:25 AM EDT Ayanna from [facility] calls and states that patient is planning to get discharged from [facility] today with the diagnosis of Acute Kidney Injury, Diarrhea, and Dehydration. Ayanna asking if provider willing to follow patient with orders for Longterm, Physical Therapy, Occupational Therapy, and Home Health Aide. They plan on starting up care on 10/01/2021 if provider agreeable to Follow. If agreeable please give Ayanna a call back [phone]. Thank you, Ginny Moreland RN documented in this encounterSt. Mary'[facility]03-06-2022 Hospital Discharge instructions Patient Education 09/07/2021 19:00:21 [...] the ears or bruising around the eyes [id number] [employer]. [address] [place] [address]. All rights reserved. This information is not [...] re-open Bleeding not controlled by direct pressure [id number] [employer]. [address] [place] [address], [place] [address]. All rights reserved. This information is not [...] or numbness in one or both arms [phone] [employer]. [address] [place] [address], [place] [address]. All rights reserved. This information is not intended as a substitute for professional medical care. Always follow yourhealthcare professional's instructions. 09/07/2021 19:00:06 Fall, Mechanical Mechanical [...] in vomit, stools (black or red color) [id number] [employer]. [address] [place] [address]. All rights reserved. This information is not intended as a substitute for professional medical care. Always follow yourhealthcare professional's instructions. Follow Up Care 09/07/2021 15:50:35 With:JOY STAHL Address: [address] [place] [address]- Business (1) When:2-4 days Comments:Schedule appointment as soon as possibleStaples out in 7-10 daysReturn to ED if symptoms worsen [facility] 10-30-2006 History of Past illness Narrative* Problem Noted Date Resolved Date Chronic pulmonary heart disease 05/03/2006 10/01/2022 Cough 04/01/2006 05/03/2006 Obstructive chronic bronchitis with exacerbation 05/03/2006 Overview: COPD Viral pneumonia, unspecified Overview: Pneumonia documented as of this encounter (statuses as of 10/01/2022) [facility] History of Past illness Narrative* Problem Noted Date Resolved Date Chronic pulmonary heart disease 05/03/2006 10/01/2022 Cough 04/01/2006 05/03/2006 Obstructive chronic bronchitis with exacerbation 05/03/2006 Overview: COPD Viral pneumonia, unspecified Overview: Pneumonia documented as of this encounter (statuses as of 10/15/2022) [facility] History of Past illness Narrative* Problem Noted Date Resolved Date Chronic pulmonary heart disease 05/03/2006 10/01/2022 Cough 04/01/2006 05/03/2006 Obstructive chronic bronchitis with exacerbation 05/03/2006 Overview: COPD Viral pneumonia, unspecified Overview: Pneumonia documented as of this encounter (statuses as of 10/16/2022) [facility] History of Past illness Narrative* Problem Noted Date Resolved Date Chronic pulmonary heart disease 05/03/2006 10/01/2022 Cough 04/01/2006 05/03/2006 Obstructive chronic bronchitis with exacerbation 05/03/2006 Overview: COPD Viral pneumonia, unspecified Overview: Pneumonia documented as of this encounter (statuses as of 10/16/2022) [facility] History of Past illness Narrative* Problem Noted Date Resolved Date Chronic pulmonary heart disease 05/03/2006 10/01/2022 Cough 04/01/2006 05/03/2006 Obstructive chronic bronchitis with exacerbation 05/03/2006 Overview: COPD Viral pneumonia, unspecified Overview: Pneumonia documented as of this encounter (statuses as of 2022) [facility] History of Past illness Narrative* Problem Noted Date Resolved Date Chronic pulmonary heart disease 05/03/2006 10/01/2022 Cough 04/01/2006 05/03/2006 Obstructive chronic bronchitis with exacerbation 05/03/2006 Overview: COPD Viral pneumonia, unspecified Overview: Pneumonia documented as of this encounter (statuses as of 10/22/2022) [facility] History of Past illness Narrative* Problem Noted Date Resolved Date Chronic pulmonary heart disease 05/03/2006 10/01/2022 Cough 04/01/2006 05/03/2006 Obstructive chronic bronchitis with exacerbation 05/03/2006 Overview: COPD Viral pneumonia, unspecified Overview: Pneumonia documented as of this encounter (statuses as of 10/23/2022) [facility] History of Past illness Narrative* Problem Noted Date Resolved Date Chronic pulmonary heart disease 05/03/2006 10/01/2022 Cough 04/01/2006 05/03/2006 Obstructive chronic bronchitis with exacerbation 05/03/2006 Overview: COPD Viral pneumonia, unspecified Overview: Pneumonia documented as of this encounter (statuses as of 10/23/2022) [facility] History of Past illness Narrative* Problem Noted Date Resolved Date Chronic pulmonary heart disease 05/03/2006 10/01/2022 Cough 04/01/2006 05/03/2006 Obstructive chronic bronchitis with exacerbation 05/03/2006 Overview: COPD Viral pneumonia, unspecified Overview: Pneumonia documented as of this encounter (statuses as of 10/29/2022) [facility] History of Past illness Narrative* Problem Noted Date Resolved Date Chronic pulmonary heart disease 05/03/2006 10/01/2022 Cough 04/01/2006 05/03/2006 Obstructive chronic bronchitis with exacerbation 05/03/2006 Overview: COPD Viral pneumonia, unspecified Overview: Pneumonia documented as of this encounter (statuses as of 11/04/2022) [facility] History of Past illness Narrative* Problem Noted Date Resolved Date Chronic pulmonary heart disease 05/03/2006 10/01/2022 Cough 04/01/2006 05/03/2006 Obstructive chronic bronchitis with exacerbation 05/03/2006 Overview: COPD Viral pneumonia, unspecified Overview: Pneumonia documented as of this encounter (statuses as of 11/11/2022) [facility] History of Past illness Narrative* Problem Noted Date Resolved Date Chronic pulmonary heart disease 05/03/2006 10/01/2022 Cough 04/01/2006 05/03/2006 Obstructive chronic bronchitis with exacerbation 05/03/2006 Overview: COPD Viral pneumonia, unspecified Overview: Pneumonia documented as of this encounter (statuses as of 11/11/2022) [facility] History of Past illness Narrative* Problem Noted Date Resolved Date Chronic pulmonary heart disease 05/03/2006 10/01/2022 Cough 04/01/2006 05/03/2006 Obstructive chronic bronchitis with exacerbation 05/03/2006 Overview: COPD Viral pneumonia, unspecified Overview: Pneumonia documented as of this encounter (statuses as of 11/13/2022) [facility] History of Past illness Narrative* Problem Noted Date Resolved Date Chronic pulmonary heart disease 05/03/2006 10/01/2022 Cough 04/01/2006 05/03/2006 Obstructive chronic bronchitis with exacerbation 05/03/2006 Overview: COPD Viral pneumonia, unspecified Overview: Pneumonia documented as of this encounter (statuses as of 11/18/2022) [facility] History of Past illness Narrative* Problem Noted Date Resolved Date Chronic pulmonary heart disease 05/03/2006 10/01/2022 Cough 04/01/2006 05/03/2006 Obstructive chronic bronchitis with exacerbation 05/03/2006 Overview: COPD Viral pneumonia, unspecified Overview: Pneumonia documented as of this encounter (statuses as of 12/21/2022) [facility] History of Past illness Narrative* Problem Noted Date Resolved Date Chronic pulmonary heart disease 05/03/2006 10/01/2022 Cough 04/01/2006 05/03/2006 Obstructive chronic bronchitis with exacerbation 05/03/2006 Overview: COPD Viral pneumonia, unspecified Overview: Pneumonia documented as of this encounter (statuses as of 01/06/2023) [facility] History of Past illness Narrative* Problem Noted Date Diagnosed Date Resolved Date Chronic pulmonary heart disease 05/03/2006 10/01/2022 Cough 04/01/2006 05/03/2006 Obstructive chronic bronchit is with exacerbation 05/03/2006 Overview: COPD Viral pneumonia, unspecified 05/03/2006 Overview: Pneumonia documented as of this encounter (statuses as of 02/03/2023) [facility] History of Past illness Narrative* Problem Noted Date Diagnosed Date Resolved Date Chronic pulmonary heart disease 05/03/2006 10/01/2022 Cough 04/01/2006 05/03/2006 Obstructive chronic bronchit is with exacerbation 05/03/2006 Overview: COPD Viral pneumonia, unspecified 05/03/2006 Overview: Pneumonia documented as of this encounter (statuses as of 02/04/2023) [facility] History of Past illness Narrative* Problem Noted Date Diagnosed Date Resolved Date Chronic pulmonary heart disease 05/03/2006 10/01/2022 Cough 04/01/2006 05/03/2006 Obstructive chronic bronchit is with exacerbation 05/03/2006 Overview: COPD Viral pneumonia, unspecified 05/03/2006 Overview: Pneumonia documented as of this encounter (statuses as of 02/05/2023) [facility] History of Past illness Narrative* Problem Noted Date Diagnosed Date Resolved Date Chronic pulmonary heart disease 05/03/2006 10/01/2022 Cough 04/01/2006 05/03/2006 Obstructive chronic bronchit is with exacerbation 05/03/2006 Overview: COPD Viral pneumonia, unspecified 05/03/2006 Overview: Pneumonia documented as of this encounter (statuses as of 02/15/2023) [facility] History of Past illness Narrative* Problem Noted Date Diagnosed Date Resolved Date Chronic pulmonary heart disease 05/03/2006 10/01/2022 Cough 04/01/2006 05/03/2006 Obstructive chronic bronchit is with exacerbation 05/03/2006 Overview: COPD Viral pneumonia, unspecified 05/03/2006 Overview: Pneumonia documented as of this encounter (statuses as of 03/02/2023) [facility]10-30-2006 History of Past illness Narrative* Problem Noted Date Diagnosed Date Resolved Date Chronic pulmonary heart disease 05/03/2006 10/01/2022 Cough 04/01/2006 05/03/2006 Obstructive chronic bronchit is with exacerbation 05/03/2006 Overview: COPD Viral pneumonia, unspecified 05/03/2006 Overview: Pneumonia documented as of this encounter (statuses as of 03/05/2023) [facility]10-30-2006 History of Past illness Narrative* Problem Noted Date Diagnosed Date Resolved Date Chronic pulmonary heart disease 05/03/2006 10/01/2022 Cough 04/01/2006 05/03/2006 Obstructive chronic bronchit is with exacerbation 05/03/2006 Overview: COPD Viral pneumonia, unspecified 05/03/2006 Overview: Pneumonia documented as of this encounter (statuses as of 03/12/2023) [facility]10-30-2006 History of Past illness Narrative* Problem Noted Date Diagnosed Date Resolved Date Chronic pulmonary heart disease 05/03/2006 10/01/2022 Cough 04/01/2006 05/03/2006 Obstructive chronic bronchit is with exacerbation 05/03/2006 Overview: COPD Viral pneumonia, unspecified 05/03/2006 Overview: Pneumonia documented as of this encounter (statuses as of 03/26/2023) [facility]10-30-2006 History of Past illness Narrative* Problem Noted Date Diagnosed Date Resolved Date Chronic pulmonary heart disease 05/03/2006 10/01/2022 Cough 04/01/2006 05/03/2006 Obstructive chronic bronchit is with exacerbation 05/03/2006 Overview: COPD Viral pneumonia, unspecified 05/03/2006 Overview: Pneumonia documented as of this encounter (statuses as of 03/27/2023) [facility]10-30-2006 History of Past illness Narrative* Problem Noted Date Diagnosed Date Resolved Date Chronic pulmonary heart disease 05/03/2006 10/01/2022 Cough 04/01/2006 05/03/2006 Obstructive chronic bronchit is with exacerbation 05/03/2006 Overview: COPD Viral pneumonia, unspecified 05/03/2006 Overview: Pneumonia documented as of this encounter (statuses as of 04/09/2023) [facility]10-30-2006 History of Past illness Narrative* Problem Noted Date Diagnosed Date Resolved Date Chronic pulmonary heart disease 05/03/2006 10/01/2022 Cough 04/01/2006 05/03/2006 Obstructive chronic bronchit is with exacerbation 05/03/2006 Overview: COPD Viral pneumonia, unspecified 05/03/2006 Overview: Pneumonia documented as of this encounter (statuses as of 04/15/2023) [facility]10-30-2006 History of Past illness Narrative* Problem Noted Date Diagnosed Date Resolved Date Chronic pulmonary heart disease 05/03/2006 10/01/2022 Cough 04/01/2006 05/03/2006 Obstructive chronic bronchit is with exacerbation 05/03/2006 Overview: COPD Viral pneumonia, unspecified 05/03/2006 Overview: Pneumonia documented as of this encounter (statuses as of 04/20/2023) [facility]10-30-2006 History of Past illness Narrative* Problem Noted Date Diagnosed Date Resolved Date Chronic pulmonary heart disease 05/03/2006 10/01/2022 Cough 04/01/2006 05/03/2006 Obstructive chronic bronchit is with exacerbation 05/03/2006 Overview: COPD Viral pneumonia, unspecified 05/03/2006 Overview: Pneumonia documented as of this encounter (statuses as of 04/29/2023) [facility]10-30-2006 History of Past illness Narrative* Problem Noted Date Diagnosed Date Resolved Date Chronic pulmonary heart disease 05/03/2006 10/01/2022 Cough 04/01/2006 05/03/2006 Obstructive chronic bronchit is with exacerbation 05/03/2006 Overview: COPD Viral pneumonia, unspecified 05/03/2006 Overview: Pneumonia documented as of this encounter (statuses as of 05/04/2023) [facility]10-30-2006 History of Past illness Narrative* Problem Noted Date Diagnosed Date Resolved Date Chronic pulmonary heart disease 05/03/2006 10/01/2022 Cough 04/01/2006 05/03/2006 Obstructive chronic bronchit is with exacerbation 05/03/2006 Overview: COPD Viral pneumonia, unspecified 05/03/2006 Overview: Pneumonia documented as of this encounter (statuses as of 05/11/2023) [facility]10-30-2006 History of Past illness Narrative* Problem Noted Date Diagnosed Date Resolved Date Chronic pulmonary heart disease 05/03/2006 10/01/2022 Cough 04/01/2006 05/03/2006 Obstructive chronic bronchit is with exacerbation 05/03/2006 Overview: COPD Viral pneumonia, unspecified 05/03/2006 Overview: Pneumonia documented as of this encounter (statuses as of 05/13/2023) [facility]10-30-2006 History of Past illness Narrative* Problem Noted Date Diagnosed Date Resolved Date Chronic pulmonary heart disease 05/03/2006 10/01/2022 Cough 04/01/2006 05/03/2006 Obstructive chronic bronchit is with exacerbation 05/03/2006 Overview: COPD Viral pneumonia, unspecified 05/03/2006 Overview: Pneumonia documented as of this encounter (statuses as of 05/26/2023) [facility]10-30-2006 History of Past illness Narrative* Problem Noted Date Diagnosed Date Resolved Date Chronic pulmonary heart disease 05/03/2006 10/01/2022 Cough 04/01/2006 05/03/2006 Obstructive chronic bronchit is with exacerbation 05/03/2006 Overview: COPD Viral pneumonia, unspecified 05/03/2006 Overview: Pneumonia documented as of this encounter (statuses as of 06/11/2023) [facility]10-30-2006 History of Past illness Narrative* Problem Noted Date Diagnosed Date Resolved Date Chronic pulmonary heart disease 05/03/2006 10/01/2022 Cough 04/01/2006 05/03/2006 Obstructive chronic bronchit is with exacerbation 05/03/2006 Overview: COPD Viral pneumonia, unspecified 05/03/2006 Overview: Pneumonia documented as of this encounter (statuses as of 06/13/2023) [facility]10-30-2006 History of Past illness Narrative* Problem Noted Date Diagnosed Date Resolved Date Chronic pulmonary heart disease 05/03/2006 10/01/2022 Cough 04/01/2006 05/03/2006 Obstructive chronic bronchit is with exacerbation 05/03/2006 Overview: COPD Viral pneumonia, unspecified 05/03/2006 Overview: Pneumonia documented as of this encounter (statuses as of 08/07/2023) [facility]09-28-2006 History of Past illness Narrative* Problem Noted Date Resolved Date Cough 04/01/2006 05/03/2006 Obstructive chronic bronchitis with exacerbation 05/03/2006 Overview: COPD Viral pneumonia, unspecified Overview: Pneumonia documented as of this encounter (statuses as of 09/29/2021) [facility]09-28-2006 History of Past illness Narrative* Problem Noted Date Resolved Date Cough 04/01/2006 05/03/2006 Obstructive chronic bronchitis with exacerbation 05/03/2006 Overview: COPD Viral pneumonia, unspecified Overview: Pneumonia documented as of this encounter (statuses as of 10/09/2021) [facility]09-28-2006 History of Past illness Narrative* Problem Noted Date Resolved Date Cough 04/01/2006 05/03/2006 Obstructive chronic bronchitis with exacerbation 05/03/2006 Overview: COPD Viral pneumonia, unspecified Overview: Pneumonia documented as of this encounter (statuses as of 10/10/2021) [place] [id number] History of Past illness Narrative* Problem Noted Date Resolved Date Cough 04/01/2006 05/03/2006 Obstructive chronic bronchitis with exacerbation 05/03/2006 Overview: COPD Viral pneumonia, unspecified Overview: Pneumonia documented as of this encounter (statuses as of 10/10/2021) [facility]09-28-2006 History of Past illness Narrative* Problem Noted Date Resolved Date Cough 04/01/2006 05/03/2006 Obstructive chronic bronchitis with exacerbation 05/03/2006 Overview: COPD Viral pneumonia, unspecified Overview: Pneumonia documented as of this encounter (statuses as of 10/16/2021) [facility]09-28-2006 History of Past illness Narrative* Problem Noted Date Resolved Date Cough 04/01/2006 05/03/2006 Obstructive chronic bronchitis with exacerbation 05/03/2006 Overview: COPD Viral pneumonia, unspecified Overview: Pneumonia documented as of this encounter (statuses as of 10/24/2021) [facility]09-28-2006 History of Past illness Narrative* Problem Noted Date Resolved Date Cough 04/01/2006 05/03/2006 Obstructive chronic bronchitis with exacerbation 05/03/2006 Overview: COPD Viral pneumonia, unspecified Overview: Pneumonia documented as of this encounter (statuses as of 11/03/2021) [facility]09-[facility]-2006 History of Past illness Narrative* Problem Noted Date Resolved Date Cough 04/01/2006 05/03/2006 Obstructive chronic bronchitis with exacerbation 05/03/2006 Overview: COPD Viral pneumonia, unspecified Overview: Pneumonia documented as of this encounter (statuses as of 11/06/2021) [facility]09-28-2006 History of Past illness Narrative* Problem Noted Date Resolved Date Cough 04/01/2006 05/03/2006 Obstructive chronic bronchitis with exacerbation 05/03/2006 Overview: COPD Viral pneumonia, unspecified Overview: Pneumonia documented as of this encounter (statuses as of 11/20/2021) [facility]09-28-2006 History of Past illness Narrative* Problem Noted Date Resolved Date Cough 04/01/2006 05/03/2006 Obstructive chronic bronchitis with exacerbation 05/03/2006 Overview: COPD Viral pneumonia, unspecified Overview: Pneumonia documented as of this encounter (statuses as of 11/24/2021) [facility]09-28-2006 History of Past illness Narrative* Problem Noted Date Resolved Date Cough 04/01/2006 05/03/2006 Obstructive chronic bronchitis with exacerbation 05/03/2006 Overview: COPD Viral pneumonia, unspecified Overview: Pneumonia documented as of this encounter (statuses as of 12/06/2021) [facility]09-28-2006 History of Past illness Narrative* Problem Noted Date Resolved Date Cough 04/01/2006 05/03/2006 Obstructive chronic bronchitis with exacerbation 05/03/2006 Overview: COPD Viral pneumonia, unspecified Overview: Pneumonia documented as of this encounter (statuses as of 12/06/2021) [facility]09-28-2006 History of Past illness Narrative* Problem Noted Date Resolved Date Cough 04/01/2006 05/03/2006 Obstructive chronic bronchitis with exacerbation 05/03/2006 Overview: COPD Viral pneumonia, unspecified Overview: Pneumonia documented as of this encounter (statuses as of 12/23/2021) [facility]09-28-2006 History of Past illness Narrative* Problem Noted Date Resolved Date Cough 04/01/2006 05/03/2006 Obstructive chronic bronchitis with exacerbation 05/03/2006 Overview: COPD Viral pneumonia, unspecified Overview: Pneumonia documented as of this encounter (statuses as of 01/30/2022) [address]28-2006 History of Past illness Narrative* Problem Noted Date Resolved Date Cough 04/01/2006 05/03/2006 Obstructive chronic bronchitis with exacerbation 05/03/2006 Overview: COPD Viral pneumonia, unspecified Overview: Pneumonia documented as of this encounter (statuses as of 02/12/2022) [facility]09-28-2006 History of Past illness Narrative* Problem Noted Date Resolved Date Cough 04/01/2006 05/03/2006 Obstructive chronic bronchitis with exacerbation 05/03/2006 Overview: COPD Viral pneumonia, unspecified Overview: Pneumonia documented as of this encounter (statuses as of 02/19/2022) [address]28-2006 History of Past illness Narrative* Problem Noted Date Resolved Date Cough 04/01/2006 05/03/2006 Obstructive chronic bronchitis with exacerbation 05/03/2006 Overview: COPD Viral pneumonia, unspecified Overview: Pneumonia documented as of this encounter (statuses as of 02/20/2022) [place] [id number] History of Past illness Narrative* Problem Noted Date Resolved Date Cough 04/01/2006 05/03/2006 Obstructive chronic bronchitis with exacerbation 05/03/2006 Overview: COPD Viral pneumonia, unspecified Overview: Pneumonia documented as of this encounter (statuses as of 02/23/2022) [facility]09-[facility]-2006 History of Past illness Narrative* Problem Noted Date Resolved Date Cough 04/01/2006 05/03/2006 Obstructive chronic bronchitis with exacerbation 05/03/2006 Overview: COPD Viral pneumonia, unspecified Overview: Pneumonia documented as of this encounter (statuses as of 02/25/2022) [place] [id number] History of Past illness Narrative* Problem Noted Date Resolved Date Cough 04/01/2006 05/03/2006 Obstructive chronic bronchitis with exacerbation 05/03/2006 Overview: COPD Viral pneumonia, unspecified Overview: Pneumonia documented as of this encounter (statuses as of 03/05/2022) [facility]09-[facility]-2006 History of Past illness Narrative* Problem Noted Date Resolved Date Cough 04/01/2006 05/03/2006 Obstructive chronic bronchitis with exacerbation 05/03/2006 Overview: COPD Viral pneumonia, unspecified Overview: Pneumonia documented as of this encounter (statuses as of 03/11/2022) [place] [id number] History of Past illness Narrative* Problem Noted Date Resolved Date Cough 04/01/2006 05/03/2006 Obstructive chronic bronchitis with exacerbation 05/03/2006 Overview: COPD Viral pneumonia, unspecified Overview: Pneumonia documented as of this encounter (statuses as of 03/13/2022) [place] [id number] History of Past illness Narrative* Problem Noted Date Resolved Date Cough 04/01/2006 05/03/2006 Obstructive chronic bronchitis with exacerbation 05/03/2006 Overview: COPD Viral pneumonia, unspecified Overview: Pneumonia documented as of this encounter (statuses as of 03/19/2022) [facility]09-[facility]-2006 History of Past illness Narrative* Problem Noted Date Resolved Date Cough 04/01/2006 05/03/2006 Obstructive chronic bronchitis with exacerbation 05/03/2006 Overview: COPD Viral pneumonia, unspecified Overview: Pneumonia documented as of this encounter (statuses as of 03/26/2022) [place] [id number] History of Past illness Narrative* Problem Noted Date Resolved Date Cough 04/01/2006 05/03/2006 Obstructive chronic bronchitis with exacerbation 05/03/2006 Overview: COPD Viral pneumonia, unspecified Overview: Pneumonia documented as of this encounter (statuses as of 04/03/2022) [place] [id number] History of Past illness Narrative* Problem Noted Date Resolved Date Cough 04/01/2006 05/03/2006 Obstructive chronic bronchitis with exacerbation 05/03/2006 Overview: COPD Viral pneumonia, unspecified Overview: Pneumonia documented as of this encounter (statuses as of 05/15/2022) [facility]09-28-2006 History of Past illness Narrative* Problem Noted Date Resolved Date Cough 04/01/2006 05/03/2006 Obstructive chronic bronchitis with exacerbation 05/03/2006 Overview: COPD Viral pneumonia, unspecified Overview: Pneumonia documented as of this encounter (statuses as of 07/08/2022) [place] [id number] History of Past illness Narrative* Problem Noted Date Resolved Date Cough 04/01/2006 05/03/2006 Obstructive chronic bronchitis with exacerbation 05/03/2006 Overview: COPD Viral pneumonia, unspecified Overview: Pneumonia documented as of this encounter (statuses as of 08/06/2022) [facility]09-28-2006 History of Past illness Narrative* Problem Noted Date Resolved Date Cough 04/01/2006 05/03/2006 Obstructive chronic bronchitis with exacerbation 05/03/2006 Overview: COPD Viral pneumonia, unspecified Overview: Pneumonia documented as of this encounter (statuses as of 08/18/2022) [place] [id number] History of Past illness Narrative* Problem Noted Date Resolved Date Cough 04/01/2006 05/03/2006 Obstructive chronic bronchitis with exacerbation 05/03/2006 Overview: COPD Viral pneumonia, unspecified Overview: Pneumonia documented as of this encounter (statuses as of 08/20/2022) [place] [id number] History of Past illness Narrative* Problem Noted Date Resolved Date Cough 04/01/2006 05/03/2006 Obstructive chronic bronchitis with exacerbation 05/03/2006 Overview: COPD Viral pneumonia, unspecified Overview: Pneumonia documented as of this encounter (statuses as of 08/20/2022) [facility]09-28-2006 History of Past illness Narrative* Problem Noted Date Resolved Date Cough 04/01/2006 05/03/2006 Obstructive chronic bronchitis with exacerbation 05/03/2006 Overview: COPD Viral pneumonia, unspecified Overview: Pneumonia documented as of this encounter (statuses as of 09/01/2022) [facility]09-28-2006 History of Past illness Narrative* Problem Noted Date Resolved Date Cough 04/01/2006 05/03/2006 Obstructive chronic bronchitis with exacerbation 05/03/2006 Overview: COPD Viral pneumonia, unspecified Overview: Pneumonia documented as of this encounter (statuses as of 09/21/2022) [facility]09-28-2006 History of Past illness Narrative* Problem Noted Date Resolved Date Cough 04/01/2006 05/03/2006 Obstructive chronic bronchitis with exacerbation 05/03/2006 Overview: COPD Viral pneumonia, unspecified Overview: Pneumonia documented as of this encounter (statuses as of 09/29/2022) [facility] + Plan note No data available for this section [facility] Evaluation note* Diagnosis GUME (acute kidney injury) (HCC)- Primary Acute kidney failure, unspecified Insomnia, unspecified type Pedal edema Edema Impacted stool in intestine (HCC) Fecal impaction Hypervolemia, unspecified hypervolemia type Congestive heart failure, unspecified HF chronicity, unspecified heart failure type (HCC) Cardiomegaly documented in this encounter [facility] note* Diagnosis Insomnia, unspecified type documented in this encounter [facility] note* Diagnosis Congestive heart failure, unspecified HF chronicity, unspecified heart failure type (HCC)- Primary Pedal edema Edema Diastolic dysfunction Heart disease, unspecified Chronic obstructive pulmonary disease, unspecified COPD type (HCC) [facility] Diagnosis Procedure not carried out- Primary Procedure not carried out for other reasons [facility]* Diagnosis Anxiety- Primary Anxiety state, unspecified Insomnia, unspecified type Essential hypertension Unspecified essential hypertension [facility]* Diagnosis Post-operative state- Primary Other postprocedural status SDH (subdural hematoma) Subdural hemorrhage Anemia (Low HGB) Anemia, unspecified Electrolyte disorder (K, Cl, or Na) Electrolyte and fluid disorders not elsewhere classified [facility] Medication management Encounter for long-term (current) use of other medications [facility]* Diagnosis Pain at surgical incision- Primary Disturbance of skin sensation [facility] Diagnosis Urinary tract infection without hematuria, site unspecified- Primary Fall, sequela Closed nondisplaced fracture of seventh cervical vertebra, unspecified fracture morphology, sequela Laceration of head without foreign body, unspecified part of head, sequela [facility] Diagnosis Right leg numbness- Primary Disturbance [...] morphology, subsequent encounter documented [facility] this [facility] Diagnosis Essential hypertension Unspecified essential hypertension [facility] this [facility] Diagnosis Hospital discharge follow-up- Primary Other [...] Other postprocedural status [facility] this [facility] Diagnosis Insomnia, unspecified type documented [facility] this [facility] Diagnosis Panlobular emphysema (HCC)- Primary Other emphysema Chronic obstructive pulmonary disease, unspecified COPD type (HCC) Chronic hypercapnic respiratory failure (HCC) Chronic respiratory failure Anxiety Anxiety state, unspecified Carcinoma in situ of left breast, unspecified type Insomnia, unspecified type Screening mammogram for breast cancer Hemorrhagic stroke (HCC) Intracerebral hemorrhage Mixed hyperlipidemia Sleep apnea, unspecified type documented [facility] this [facility] Diagnosis Pain at surgical incision Disturbance of skin sensation [facility] this [facility] Diagnosis History of recent hospitalization- Primary Personal history of unspecified disease Chronic obstructive pulmonary disease, unspecified COPD type (HCC) Chronic hypercapnic respiratory failure (HCC) Chronic respiratory failure Decompensated heart failure (HCC) RLS (restless legs syndrome) Restless legs syndrome (RLS) Generalized pain documented in this encounter [facility] note* Diagnosis Hemorrhagic stroke (HCC)- Primary Intracerebral hemorrhage Impaired mobility and activities of daily living Other ill-defined conditions documented in this encounter [facility] note* Diagnosis Chronic obstructive pulmonary disease, unspecified COPD type (HCC)- Primary Acute deep vein thrombosis (DVT) of distal vein of right lower extremity (HCC) Acute subdural hematoma (HCC) Subdural hemorrhage Seizure-like activity (HCC) Other convulsions Insomnia, unspecified type documented in this encounter [facility] note* Diagnosis History of recent hospitalization- Primary Personal history of unspecified disease Chronic obstructive pulmonary disease, unspecified COPD type (HCC) Insomnia, unspecified type Anemia, unspecified type Elevated liver enzymes Other nonspecific abnormal serum enzyme levels Medication monitoring encounter Encounter for therapeutic drug monitoring documented in this encounter [facility] note* Diagnosis Insomnia, unspecified type documented in this encounter [facility] note* Diagnosis Insomnia, unspecified type- Primary documented in this encounter [facility] note* Diagnosis Insomnia, unspecified type documented in this encounter [facility] note* Diagnosis Essential hypertension Unspecified essential hypertension documented in this encounter [facility] note* Diagnosis Insomnia, unspecified type- Primary Anemia, unspecified type Elevated liver enzymes Other nonspecific abnormal serum enzyme levels Mixed hyperlipidemia documented in this encounter [facility] note* Diagnosis Insomnia, unspecified type documented in this encounter [facility] note* Diagnosis Insomnia, unspecified type documented in this encounter [facility] note* Diagnosis Insomnia, unspecified type documented in this encounter [facility] note* Diagnosis Insomnia, unspecified type documented in this encounter [facility] note* Diagnosis Subdural hematoma (HCC)- Primary Subdural hemorrhage Status post fall Unspecified fall Occipital scalp laceration, sequela Chronic obstructive pulmonary disease, unspecified COPD type (HCC) Hypotension, unspecified hypotension type documented in this encounter [facility] note* Diagnosis Insomnia, unspecified type documented in this encounter [facility] note* Diagnosis Insomnia, unspecified type- Primary Confusion Unspecified psychosis Subdural hematoma (HCC) Subdural hemorrhage RLS (restless legs syndrome) Restless legs syndrome (RLS) Anxiety Anxiety state, unspecified documented in this encounter [facility] note* Diagnosis Seizure (HCC)- Primary Other convulsions Seizure (HCC) Other convulsions Hypotension, unspecified hypotension type Acute respiratory failure with hypoxia and hypercapnia (HCC) Cerebrovascular accident (CVA) due to embolism of cerebral artery (HCC) Pain around percutaneous endoscopic gastrostomy (PEG) tube site, initial encounter Acute respiratory failure with hypoxia and hypercapnia (HCC) documented in this encounter [facility] note* Diagnosis Insomnia, unspecified type documented in this encounter [facility] note* Diagnosis 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 Panlobular emphysema (HCC) Other emphysema Seizure-like activity (HCC) Other convulsions Insomnia, unspecified type [facility] Diagnosis Insomnia, unspecified type documented in this encounter [facility] note* Diagnosis Insomnia, unspecified type documented in this encounter [facility] note* Diagnosis Insomnia, unspecified type [facility] Diagnosis Chronic obstructive pulmonary disease, unspecified COPD type (HCC)- Primary 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) Gastrostomy status Malnutrition of mild degree ([facility]) Malnutrition of mild degree documented in this encounter [facility] note* Diagnosis Insomnia, unspecified type documented in this encounter [facility] note* Diagnosis Insomnia, unspecified type documented in this encounter [facility] note* Diagnosis 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 Tracheostomy status Anxiety Anxiety state, unspecified Chronic obstructive pulmonary disease, unspecified COPD type ([facility]) documented in this encounter [facility] note* Diagnosis 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) [Z93.0]- Primary Tracheostomy status documented in this encounter [facility] note* Diagnosis Falls frequently- Primary Personal history of fall Insomnia, unspecified type Polypharmacy Encounter for long-term (current) use of other medications documented in this encounter [facility] note* Diagnosis Status epilepticus (CMS/HCC) (HCC)- Primary Epileptic grand mal status Status epilepticus (CMS/HCC) (HCC) Epileptic grand mal status Hypotension, unspecified hypotension type Acute respiratory failure with hypoxia and hypercapnia ([facility]) documented in this encounter [facility] note* Diagnosis Insomnia, unspecified type [facility] Diagnosis Hospital discharge follow-up- Primary Other follow-up examination Decompensated heart failure (HCC) Traumatic subdural hemorrhage with loss of consciousness of unspecified duration, initial encounter ([facility]) Malnutrition of mild degree (HCC) Malnutrition of mild degree Right leg pain Pain in limb documented in this encounter [facility] note* Diagnosis Chronic pain of right lower extremity- Primary Right leg pain Pain in limb Restless legs Restless legs syndrome (RLS) Anxiety Anxiety state, unspecified [facility] Diagnosis Mixed hyperlipidemia [facility] this 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 Tracheostomy status Chronic obstructive pulmonary disease, unspecified COPD type (HCC) Chronic hypercapnic respiratory failure (HCC) Chronic respiratory failure documented in this encounter [facility] note* Diagnosis RLS (restless legs syndrome) Restless legs syndrome (RLS) Anxiety Anxiety state, unspecified Insomnia, unspecified type documented in this encounter [facility] note* Diagnosis Insomnia, unspecified type documented in this encounter [facility] note* Diagnosis Chronic obstructive pulmonary disease, unspecified COPD type (HCC)- Primary Chronic respiratory failure with hypoxia and hypercapnia (HCC) Tracheostomy present (HCC) Former smoker Personal history of tobacco use, presenting hazards to health documented in this encounter [facility] note* 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 for referral (narrative)* Outpatient Procedure (Urgent) - Pending Review Specialty Diagnoses / Procedures Referred By Contjuan manuel t Referred To [facility] Diagnoses Cardiomegaly Procedures ECHO ECHO TTHRC R-T 2D W/WOM-MODE COMPL SPEC&COLR D Maryam Franco MD [address] [place] [address] [facility] [place] [address] [place] [address] Referral ID Status Reason Start Date Expiration Date Visits Requested Visits Authorized [id number] Pending Review Auto-Generat ed Referral 10/08/2021 10/08/2022 1 1 * Outpatient Procedure (Routine) - Pending Review Specialty Diagnoses / Procedures Referred By Aubree lubin Referred [facility] Diagnoses Cardiomegaly Procedures ECG COMPLETE ECG ROUTINE ECG W/LEAST 12 LDS W/I&R Maryam Franco MD [address] [place] [address] [facility] [place] [address] [place] [address] Referral ID Status Reason Start Date Expiration Date Visits Requested Visits Authorized [id number] Pending Review Auto-Generat ed Referral 10/08/2021 10/08/2022 [address] [facility] for referral (narrative)* Diagnostic Procedure Only (Routine) - Pending Review Specialty Diagnoses / Procedures Referred By Aubree lubin Referred To Contact [facility] Diagnoses Screening mammogram for breast cancer Procedures GARRETT SCREENING SCREENING MAMMOGRAPHY BI 2-VIEW BREAST INC CAD Maryam Franco MD [address] [place] [address] [facility] [address] [place] [address] Referral ID Status Reason Start Date Expiration Date Visits Requested Visits Authorized [id number] Pending Review Auto-Generat ed Referral 10/01/2022 10/31/2023 [address] [facility] for referral (narrative)* Diagnostic Procedure Only (Routine) - Authorized Specialty Diagnoses / Procedures Referred By Aubree lubin Referred To Contact XR IMAGING Diagnoses Right leg pain Procedures XR HIP GENERAL 3V PELV/AP/LAT RIGHT RADEX HIP UNILATERAL WITH PELVIS 2-3 VIEWS Maryam Franco MD [address] [place] [address] [place] [id number] Referral ID Status Reason Start Date Expiration Date Visits Requested Visits Authorized [id number] Authorized Auto-Generat ed Referral 02/17/2024 03/18/2025 1 1 * Diagnostic Procedure Only (Routine) - Authorized Specialty Diagnoses / Procedures Referred By Contac t Referred To Contact XR IMAGING Diagnoses Right leg pain Procedures XR LUMBAR GENERAL 3V AP/LAT/L5-S1 RADEX SPINE LUMBOSACRAL 2/3 VIEWS Maryam Franco MD [address] [place] [address] [place] [address] Referral ID Status Reason Start Date Expiration Date Visits Requested Visits Authorized [id number] Authorized Auto-Generat ed Referral 02/17/2024 03/18/[address] [facility] Outpatient Procedure (Routine) - Authorized Specialty Diagnoses / Procedures Referred By Contac t Referred To Contact [facility] Diagnoses Chronic obstructive pulmonary disease, unspecified COPD type (HCC) Procedures OXIMETRY WITH AMBULATION NONINVASIVE EAR/PULSE OXIMETRY MULTIPLE DANNY Flannery, Pepper Klein MD [address] [place] [address] [facility] [place] [address] [place] [address] Referral ID Status Reason Start Date Expiration Date Visits Requested Visits Authorized [id number] Authorized Auto-Generat ed Referral 05/25/[address] 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 Advance Directive(s) 08/20/2016 6:35 AM [...] extremity Procedures CONSULT TO PAIN MGT OFFICE/OUTPATIENT NEW HIGH MDM 60 MINUTES Maryam Franco MD [address] [place] [address] Referral ID Status Reason Start Date Expiration Date Visits Requested Visits Authorized [id number] Authorized PCP Requested Referral 02/23/2024 05/23/2024 1 1 Specialty Diagnoses / Procedures Referred By Contac t Referred To Contact Gerontology / GERIATRICS Diagnoses Falls frequently Polypharmacy Procedures CONSULT TO GERIATRICS OFFICE/OUTPATIENT NEW HIGH MDM 60 MINUTES Joan Johnson APRN.CNP [address] [place] [address] [address] [address] [place] [address] Referral ID Status Reason Start Date Expiration Date V isits Requested Visits Authorized [id number] Closed PCP Requested Referral 01/26/2024 01/25/2025 1 1 Specialty Diagnoses / Procedures Referred By Contac t Referred To Contact General Surgery Diagnoses 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) Procedures CONSULT TO GENERAL SURGERY OFFICE/OUTPATIENT [facility]3] 60 MINUTES Issa Herman MD [address] [place] [address] Referral ID Status Reason Start Date Expiration Date Visits Requested Visits Authorized [id number] Authorized PCP Requested Referral 12/02/2023 12/01/2024 1 1 Specialty Diagnoses / Procedures Referred By Contac t Referred To Contact Ent - Otolaryngology Diagnoses 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) Procedures CONSULT TO ENT Issa Herman MD [address] [place] [address] Referral ID Status Reason Start Date Expiration Date Visits Requested Visits Authorized [id number] Ref Not Required PCP Requested Referral 12/02/2023 12/01/2024 1 1 Specialty Diagnoses / Procedures Referred By Contac t Referred To Contact Diagnoses Pain around percutaneous endoscopic gastrostomy (PEG) tube site, initial encounter Crys Canseco DO [address] [place] [address] Referral ID Status Reason Start Date Expiration Date V isits Requested Visits Authorized [id number] Pending Review 1 1 Specialty Diagnoses / Procedures Referred By Contac t Referred To Contact Diagnoses Insomnia, unspecified type Confusion RLS (restless legs syndrome) Procedures CONSULT TO SLEEP MEDICINE - ADULT OFFICE/OUTPATIENT [facility]3] 60 MINUTES Joanie Benitez PA-C [address] [place] [address] Referral ID Status Reason Start Date Expiration Date Visits Requested Visits Authorized [id number] Authorized PCP Requested Referral 09/23/2023 09/22/2024 1 1 Specialty Diagnoses / Procedures Referred By Contac t Referred To Contact Diagnoses Insomnia, unspecified type Joan Johnson APRN.CLEAN UP WORKER [address] [place] [address] Referral ID Status Reason Start Date Expiration Date Visits Re quested Visits Authorized [id number] Denied 1 1 Specialty Diagnoses / Procedures Referred By Contac t Referred To Contact Diagnoses Insomnia, unspecified type Joanie Benitez PA-C [address] [place] [address] Referral ID Status Reason Start Date Expiration Date V isits Requested Visits Authorized [id number] Authorized 02/05/2023 02/05/2023 1 1 Specialty Diagnoses / Procedures Referred By Contac t Referred To Contact Cardiology Diagnoses Decompensated heart failure (HCC) History of recent hospitalization Procedures CONSULT TO CARDIOLOGY OFFICE/OUTPATIENT [facility]3] 60-74 MINUTES Joan Johnson APRN.CLEAN UP WORKER [address] [place] [address] Referral ID Status Reason Start Date Expiration Date Visits Requested Visits Authorized [id number] Pending Review PCP Requested Referral 10/16/2022 10/16/2023 1 1 Specialty Diagnoses / Procedures Referred By Contac t Referred To Contact Gastroenterology Diagnoses Gastrojejunostomy tube status (HCC) Procedures CONSULT TO GASTROENTEROLOGY OFFICE/OUTPATIENT [facility]3] 60-74 MINUTES Maryam Franco MD [address] [place] [address] Referral ID Status Reason Start Date Expiration Date Visits Requested Visits Authorized [id number] Pending Review PCP Requested Referral 08/19/2022 08/19/2023 1 1 Specialty Diagnoses / Procedures Referred By Contac t Referred To Contact CT IMAGING Diagnoses Closed nondisplaced fracture of seventh cervical vertebra with routine healing, unspecified fracture morphology, subsequent encounter Procedures CT CERVICAL SPINE WO IVCON CT CERVICAL SPINE W/O CONTRAST MATERIAL Pushpa Esquivel Jr., MD [address] [address] [address] Imaging Referral ID Status Reason Start Date Expiration Date Visits Requested Visits Authorized [id number] Pending Review Auto-Generat ed Referral 04/03/2022 05/03/2023 1 1 Specialty Diagnoses / Procedures Referred By Contac t Referred To Contact Neurosurgery Diagnoses Compression fracture of T12 vertebra, sequela History of subdural hematoma Procedures CONSULT TO NEUROSURGERY Pushpa Esquivel Jr., MD [address] [facility] [address] [place] [address] Referral ID Status Reason Start Date Expiration Date Visits Requested Visits Authorized [id number] Ref Not Required PCP Requested Referral 04/03/2022 07/02/2022 3 3 Specialty Diagnoses / Procedures Referred By Contac t Referred To Contact CT IMAGING Diagnoses Right leg numbness Right leg weakness Midline low back pain, unspecified chronicity, unspecified whether sciatica present Compression fracture of T12 vertebra, sequela Procedures CT LUMBAR SPINE WO IVCON CT LUMBAR SPINE W/O CONTRAST MATERIAL Pushpa Esquivel Jr., MD [address] [facility] [address] [place] [address] Ct Imaging Referral ID Status Reason Start Date Expiration Date Visits Requested Visits Authorized [id number] Authorized Auto-Generat ed Referral 04/03/2022 05/03/2023 1 1 Specialty Diagnoses / Procedures Referred By Contac t Referred To Contact CT IMAGING Diagnoses Right leg numbness Right leg weakness Midline low back pain, unspecified chronicity, unspecified whether sciatica present Compression fracture of T12 vertebra, sequela Procedures CT THORACIC SPINE WO IVCON CT THORACIC SPINE W/O CONTRAST MATERIAL Pushpa Esquivel Jr., MD [address] [facility] [address] [place] [address] Ct Imaging Referral ID Status Reason Start Date Expiration Date Visits Requested Visits Authorized [id number] Authorized Auto-Generat ed Referral 04/03/2022 05/03/2023 1 1 Health Concerns Infection Onset Date Last Indicated Resolved Time RSV 07/14/2023 07/14/2023 08/06/2023 2:14 PM EST COVID-19 Rule-Out 08/06/2023 08/06/2023 08/06/2023 12:46 PM EST Additional Source Comments INFORMATION SOURCE (unrecogn ized section and content) DATE CREATED AUTHOR 12/24/2017 [facility] DATE CREATED AUTHOR AUTHOR'S ORGANIZ ATION 12/28/2017 [facility] DATE CREATED AUTHOR AUTHOR'S ORGANIZ ATION 01/09/2022 [facility] DATE CREATED AUTHOR AUTHOR'S ORGANIZ ATION 02/08/2022 [facility] DATE CREATED AUTHOR AUTHOR'S ORGANIZ ATION 08/25/2022 [facility] DATE CREATED AUTHOR AUTHOR'S ORGANIZ ATION 09/03/2023 [facility] DATE CREATED AUTHOR AUTHOR'S ORGANIZ ATION 11/13/2023 [facility] ([place] DATE CREATED AUTHOR AUTHOR'S ORGANIZ ATION 03/03/2024 [facility] DATE CREATED AUTHOR AUTHOR'S ORGANIZ ATION 04/27/2024 [facility] Source Comments (unrecognize d section and content) In the event this informatio n is protected by the Federal Confidentiality of Alcohol and Drug Abuse Patient Records regulations: The Federal rules restrict any use of the information to criminally investigate or prosecute any alcohol or drug abuse patient.[facility] the event this information is protected by the Federal Confidentiality of Alcohol and Drug Abuse Patient Records regulations: The Federal rules restrict any use of the information to criminally investigate or prosecute any alcohol or drug abuse patient.[facility] the event this information is protected by the Federal Confidentiality of Alcohol and Drug Abuse Patient Records regulations: The Federal rules restrict any use of the information to criminally investigate or prosecute any alcohol or drug abuse patient.[facility] the event this information is protected by the Federal Confidentiality of Alcohol and Drug Abuse Patient Records regulations: The Federal rules restrict any use of the information to criminally investigate or prosecute any alcohol or drug abuse patient.[facility] the event this information is protected by the Federal Confidentiality of Alcohol and Drug Abuse Patient Records regulations: The Federal rules restrict any use of the information to criminally investigate or prosecute any alcohol or drug abuse patient.[facility] the event this information is protected by the Federal Confidentiality of Alcohol and Drug Abuse Patient Records regulations: The Federal rules restrict any use of the information to criminally investigate or prosecute any alcohol or drug abuse patient.[facility] the event this information is protected by the Federal Confidentiality of Alcohol and Drug Abuse Patient Records regulations: The Federal rules restrict any use of the information to criminally investigate or prosecute any alcohol or drug abuse patient.[facility] the event this information is protected by the Federal Confidentiality of Alcohol and Drug Abuse Patient Records regulations: The Federal rules restrict any use of the information to criminally investigate or prosecute any alcohol or drug abuse patient.[facility] the event this information is protected by the Federal Confidentiality of Alcohol and Drug Abuse Patient Records regulations: The Federal rules restrict any use of the information to criminally investigate or prosecute any alcohol or drug abuse patient.[facility] Campus[facility] the event this information is protected by [...] or prosecute any alcohol or drug abuse patient.[facility] the event this information is protected by the Federal Confidentiality of Alcohol and Drug Abuse Patient Records regulations: The Federal rules restrict any use of the information to criminally investigate or prosecute any alcohol or drug abuse patient.[facility] the event this information is protected by the Federal Confidentiality of Alcohol and Drug Abuse Patient Records regulations: The Federal rules restrict any use of the information to criminally investigate or prosecute any alcohol or drug abuse patient.[facility] the event this information is protected by the Federal Confidentiality of Alcohol and Drug Abuse Patient Records regulations: The Federal rules restrict any use of the information to criminally investigate or prosecute any alcohol or drug abuse patient.[facility] Campus[facility] the event this information is protected by the Federal Confidentiality of Alcohol and Drug Abuse Patient Records regulations: The Federal rules restrict any use of the information to criminally investigate or prosecute any alcohol or drug abuse patient.[facility] Campus[facility] the event this information is protected by the Federal Confidentiality of Alcohol and Drug Abuse Patient Records regulations: The Federal rules restrict any use of the information to criminally investigate or prosecute any alcohol or drug abuse patient.[facility] Campus[facility] the event this information is protected by the Federal Confidentiality of Alcohol and Drug Abuse Patient Records regulations: The Federal rules restrict any use of the information to criminally investigate or prosecute any alcohol or drug abuse patient.[facility] CampusIn the event this information is protected by the Federal Confidentiality of Alcohol and Drug Abuse Patient Records regulations: The Federal rules restrict any use of the information to criminally investigate or prosecute any alcohol or drug abuse patient.[facility] CampusIn the event this information is protected by the Federal Confidentiality of Alcohol and Drug Abuse Patient Records regulations: The Federal rules restrict any use of the information to criminally investigate or prosecute any alcohol or drug abuse patient.[facility] CampusIn the event this information is protected by the Federal Confidentiality of Alcohol and Drug Abuse Patient Records regulations: The Federal rules restrict any use of the information to criminally investigate or prosecute any alcohol or drug abuse patient.[facility] CampusIn the event this information is protected by the Federal Confidentiality of Alcohol and Drug Abuse Patient Records regulations: The Federal rules restrict any use of the information to criminally investigate or prosecute any alcohol or drug abuse patient.[facility] CampusIn the event this information is protected by the Federal Confidentiality of Alcohol and Drug Abuse Patient Records regulations: The Federal rules restrict any use of the information to criminally investigate or prosecute any alcohol or drug abuse patient.[facility] CampusIn the event this information is protected by the Federal Confidentiality of Alcohol and Drug Abuse Patient Records regulations: The Federal rules restrict any use of the information to criminally investigate or prosecute any alcohol or drug abuse patient.[facility] CampusIn the event this information is protected by the Federal Confidentiality of Alcohol and Drug Abuse Patient Records regulations: The Federal rules restrict any use of the information to criminally investigate or prosecute any alcohol or drug abuse patient.[facility] CampusIn the event this information is protected by the Federal Confidentiality of Alcohol and Drug Abuse Patient Records regulations: The Federal rules restrict any use of the information to criminally investigate or prosecute any alcohol or drug abuse patient.[facility] CampusIn the event this information is protected by the Federal Confidentiality of Alcohol and Drug Abuse Patient Records regulations: The Federal rules restrict any use of the information to criminally investigate or prosecute any alcohol or drug abuse patient.[facility] CampusIn the event this information is protected by the Federal Confidentiality of Alcohol and Drug Abuse Patient Records regulations: The Federal rules restrict any use of the information to criminally investigate or prosecute any alcohol or drug abuse patient.[facility] [place] [facility]In the event this information is protected by the Federal Confidentiality of Alcohol and Drug Abuse Patient Records regulations: The Federal rules restrict any use of the information to criminally investigate or prosecute any alcohol or drug abuse patient.[facility] [place] CampusIn the event this information is protected by the Federal Confidentiality of Alcohol and Drug Abuse Patient Records regulations: The Federal rules restrict any use of the information to criminally investigate or prosecute any alcohol or drug abuse patient.[facility] [place] CampusIn the event this information is protected by the Federal Confidentiality of Alcohol and Drug Abuse Patient Records regulations: The Federal rules restrict any use of the information to criminally investigate or prosecute any alcohol or drug abuse patient.[facility] [place] CampusIn the event this information is protected by the Federal Confidentiality of Alcohol and Drug Abuse Patient Records regulations: The Federal rules restrict any use of the information to criminally investigate or prosecute any alcohol or drug abuse patient.[facility] [place] CampusIn the event this information is protected by the Federal Confidentiality of Alcohol and Drug Abuse Patient Records regulations: The Federal rules restrict any use of the information to criminally investigate or prosecute any alcohol or drug abuse patient.[facility] [place] CampusIn the event this information is protected by the Federal Confidentiality of Alcohol and Drug Abuse Patient Records regulations: The Federal rules restrict any use of the information to criminally investigate or prosecute any alcohol or drug abuse patient.[facility] [place] CampusIn the event this information is protected by the Federal Confidentiality of Alcohol and Drug Abuse Patient Records regulations: The Federal rules restrict any use of the information to criminally investigate or prosecute any alcohol or drug abuse patient.[facility] [place] CampusIn the event this information is protected by the Federal Confidentiality of Alcohol and Drug Abuse Patient Records regulations: The Federal rules restrict any use of the information to criminally investigate or prosecute any alcohol or drug abuse patient.[facility] [place] CampusIn the event this information is protected by the Federal Confidentiality of Alcohol and Drug Abuse Patient Records regulations: The Federal rules restrict any use of the information to criminally investigate or prosecute any alcohol or drug abuse patient.[facility] [place] CampusIn the event this information is protected by the Federal Confidentiality of Alcohol and Drug Abuse Patient Records regulations: The Federal rules restrict any use of the information to criminally investigate or prosecute any alcohol or drug abuse patient.[facility] [place] CampusIn the event this information is protected by the Federal Confidentiality of Alcohol and Drug Abuse Patient Records regulations: The Federal rules restrict any use of the information to criminally investigate or prosecute any alcohol or drug abuse patient.[facility] [place] CampusIn the event this information is protected by the Federal Confidentiality of Alcohol and Drug Abuse Patient Records regulations: The Federal rules restrict any use of the information to criminally investigate or prosecute any alcohol or drug abuse patient.[facility] [place] CampusIn the event this information is protected by the Federal Confidentiality of Alcohol and Drug Abuse Patient Records regulations: The Federal rules restrict any use of the information to criminally investigate or prosecute any alcohol or drug abuse patient.[facility] [place] CampusIn the event this information is protected by the Federal Confidentiality of Alcohol and Drug Abuse Patient Records regulations: The Federal rules restrict any use of the information to criminally investigate or prosecute any alcohol or drug abuse patient.[facility] [place] CampusIn the event this information is protected by the Federal Confidentiality of Alcohol and Drug Abuse Patient Records regulations: The Federal rules restrict any use of the information to criminally investigate or prosecute any alcohol or drug abuse patient.[facility] [place] CampusIn the event this information is protected by the Federal Confidentiality of Alcohol and Drug Abuse Patient Records regulations: The Federal rules restrict any use of the information to criminally investigate or prosecute any alcohol or drug abuse patient.[facility] [place] CampusIn the event this information is protected by the Federal Confidentiality of Alcohol and Drug Abuse Patient Records regulations: The Federal rules restrict any use of the information to criminally investigate or prosecute any alcohol or drug abuse patient.[facility] [place] CampusIn the event this information is protected by the Federal Confidentiality of Alcohol and Drug Abuse Patient Records regulations: The Federal rules restrict any use of the information to criminally investigate or prosecute any alcohol or drug abuse patient.[facility] [place] CampusIn the event this information is protected by the Federal Confidentiality of Alcohol and Drug Abuse Patient Records regulations: The Federal rules restrict any use of the information to criminally investigate or prosecute any alcohol or drug abuse patient.[facility] [place] CampusIn the event this information is protected by the Federal Confidentiality of Alcohol and Drug Abuse Patient Records regulations: The Federal rules restrict any use of the information to criminally investigate or prosecute any alcohol or drug abuse patient.[facility] [place] CampusIn the event this information is protected by the Federal Confidentiality of Alcohol and Drug Abuse Patient Records regulations: The Federal rules restrict any use of the information to criminally investigate or prosecute any alcohol or drug abuse patient.[facility] [place] CampusIn the event this information is protected by the Federal Confidentiality of Alcohol and Drug Abuse Patient Records regulations: The Federal rules restrict any use of the information to criminally investigate or prosecute any alcohol or drug abuse patient.[facility] [place] CampusIn the event this information is protected by the Federal Confidentiality of Alcohol and Drug Abuse Patient Records regulations: The Federal rules restrict any use of the information to criminally investigate or prosecute any alcohol or drug abuse patient.[facility] [place] CampusIn the event this information is protected by the Federal Confidentiality of Alcohol and Drug Abuse Patient Records regulations: The Federal rules restrict any use of the information to criminally investigate or prosecute any alcohol or drug abuse patient.[facility] [place] CampusIn the event this information is protected by the Federal Confidentiality of Alcohol and Drug Abuse Patient Records regulations: The Federal rules restrict any use of the information to criminally investigate or prosecute any alcohol or drug abuse patient.[facility] [place] CampusIn the event this information is protected by the Federal Confidentiality of Alcohol and Drug Abuse Patient Records regulations: The Federal rules restrict any use of the information to criminally investigate or prosecute any alcohol or drug abuse patient.[facility] [place] CampusIn the event this information is protected by the Federal Confidentiality of Alcohol and Drug Abuse Patient Records regulations: The Federal rules restrict any use of the information to criminally investigate or prosecute any alcohol or drug abuse patient.[facility] [place] CampusIn the event this information is protected by the Federal Confidentiality of Alcohol and Drug Abuse Patient Records regulations: The Federal rules restrict any use of the information to criminally investigate or prosecute any alcohol or drug abuse patient.[facility] [place] CampusIn the event this information is protected by the Federal Confidentiality of Alcohol and Drug Abuse Patient Records regulations: The Federal rules restrict any use of the information to criminally investigate or prosecute any alcohol or drug abuse patient.[facility] [place] CampusIn the event this information is protected by the Federal Confidentiality of Alcohol and Drug Abuse Patient Records regulations: The Federal rules restrict any use of the information to criminally investigate or prosecute any alcohol or drug abuse patient.[facility] [place] CampusIn the event this information is protected by the Federal Confidentiality of Alcohol and Drug Abuse Patient Records regulations: The Federal rules restrict any use of the information to criminally investigate or prosecute any alcohol or drug abuse patient.[facility] [place] CampusIn the event this information is protected by the Federal Confidentiality of Alcohol and Drug Abuse Patient Records regulations: The Federal rules restrict any use of the information to criminally investigate or prosecute any alcohol or drug abuse patient.[facility] [place] CampusIn the event this information is protected by [...] or prosecute any alcohol or drug abuse patient.[facility] [place] CampusIn the event this information is protected by the Federal Confidentiality of Alcohol and Drug Abuse Patient Records regulations: The Federal rules restrict any use of the information to criminally investigate or prosecute any alcohol or drug abuse patient.[facility] [place] CampusIn the event this information is protected by the Federal Confidentiality of Alcohol and Drug Abuse Patient Records regulations: The Federal rules restrict any use of the information to criminally investigate or prosecute any alcohol or drug abuse patient.[facility] [place] CampusIn the event this information is protected by the Federal Confidentiality of Alcohol and Drug Abuse Patient Records regulations: The Federal rules restrict any use of the information to criminally investigate or prosecute any alcohol or drug abuse patient.[facility] [place] CampusIn the event this information is protected by the Federal Confidentiality of Alcohol and Drug Abuse Patient Records regulations: The Federal rules restrict any use of the information to criminally investigate or prosecute any alcohol or drug abuse patient.[facility] [place] CampusIn the event this information is protected by the Federal Confidentiality of Alcohol and Drug Abuse Patient Records regulations: The Federal rules restrict any use of the information to criminally investigate or prosecute any alcohol or drug abuse patient.[facility] [place] CampusIn the event this information is protected by the Federal Confidentiality of Alcohol and Drug Abuse Patient Records regulations: The Federal rules restrict any use of the information to criminally investigate or prosecute any alcohol or drug abuse patient.[facility] [place] CampusIn the event this information is protected by the Federal Confidentiality of Alcohol and Drug Abuse Patient Records regulations: The Federal rules restrict any use of the information to criminally investigate or prosecute any alcohol or drug abuse patient.[facility] [place] CampusIn the event this information is protected by the Federal Confidentiality of Alcohol and Drug Abuse Patient Records regulations: The Federal rules restrict any use of the information to criminally investigate or prosecute any alcohol or drug abuse patient.[facility] [place] CampusIn the event this information is protected by the Federal Confidentiality of Alcohol and Drug Abuse Patient Records regulations: The Federal rules restrict any use of the information to criminally investigate or prosecute any alcohol or drug abuse patient.[facility] [place] CampusIn the event this information is protected by the Federal Confidentiality of Alcohol and Drug Abuse Patient Records regulations: The Federal rules restrict any use of the information to criminally investigate or prosecute any alcohol or drug abuse patient.[facility] [place] CampusIn the event this information is protected by the Federal Confidentiality of Alcohol and Drug Abuse Patient Records regulations: The Federal rules restrict any use of the information to criminally investigate or prosecute any alcohol or drug abuse patient.[facility] [place] CampusIn the event this information is protected by the Federal Confidentiality of Alcohol and Drug Abuse Patient Records regulations: The Federal rules restrict any use of the information to criminally investigate or prosecute any alcohol or drug abuse patient.[facility] [place] CampusIn the event this information is protected by the Federal Confidentiality of Alcohol and Drug Abuse Patient Records regulations: The Federal rules restrict any use of the information to criminally investigate or prosecute any alcohol or drug abuse patient.[facility] [place] CampusIn the event this information is protected by the Federal Confidentiality of Alcohol and Drug Abuse Patient Records regulations: The Federal rules restrict any use of the information to criminally investigate or prosecute any alcohol or drug abuse patient.[facility] [place] CampusIn the event this information is protected by the Federal Confidentiality of Alcohol and Drug Abuse Patient Records regulations: The Federal rules restrict any use of the information to criminally investigate or prosecute any alcohol or drug abuse patient.[facility] [place] CampusIn the event this information is protected by the Federal Confidentiality of Alcohol and Drug Abuse Patient Records regulations: The Federal rules restrict any use of the information to criminally investigate or prosecute any alcohol or drug abuse patient.[facility] [place] CampusIn the event this information is protected by the Federal Confidentiality of Alcohol and Drug Abuse Patient Records regulations: The Federal rules restrict any use of the information to criminally investigate or prosecute any alcohol or drug abuse patient.[facility] [place] CampusIn the event this information is protected by the Federal Confidentiality of Alcohol and Drug Abuse Patient Records regulations: The Federal rules restrict any use of the information to criminally investigate or prosecute any alcohol or drug abuse patient.[facility] [place] CampusIn the event this information is protected by the Federal Confidentiality of Alcohol and Drug Abuse Patient Records regulations: The Federal rules restrict any use of the information to criminally investigate or prosecute any alcohol or drug abuse patient.[facility] [place] CampusIn the event this information is protected by the Federal Confidentiality of Alcohol and Drug Abuse Patient Records regulations: The Federal rules restrict any use of the information to criminally investigate or prosecute any alcohol or drug abuse patient.[facility] [place] CampusIn the event this information is protected by the Federal Confidentiality of Alcohol and Drug Abuse Patient Records regulations: The Federal rules restrict any use of the information to criminally investigate or prosecute any alcohol or drug abuse patient.[facility] [place] CampusIn the event this information is protected by the Federal Confidentiality of Alcohol and Drug Abuse Patient Records regulations: The Federal rules restrict any use of the information to criminally investigate or prosecute any alcohol or drug abuse patient.[facility] [place] CampusIn the event this information is protected by the Federal Confidentiality of Alcohol and Drug Abuse Patient Records regulations: The Federal rules restrict any use of the information to criminally investigate or prosecute any alcohol or drug abuse patient.[facility] [place] CampusIn the event this information is protected by the Federal Confidentiality of Alcohol and Drug Abuse Patient Records regulations: The Federal rules restrict any use of the information to criminally investigate or prosecute any alcohol or drug abuse patient.[facility] [place] CampusIn the event this information is protected by the Federal Confidentiality of Alcohol and Drug Abuse Patient Records regulations: The Federal rules restrict any use of the information to criminally investigate or prosecute any alcohol or drug abuse patient.[facility] [place] CampusIn the event this information is protected by the Federal Confidentiality of Alcohol and Drug Abuse Patient Records regulations: The Federal rules restrict any use of the information to criminally investigate or prosecute any alcohol or drug abuse patient.[facility] [place] CampusIn the event this information is protected by the Federal Confidentiality of Alcohol and Drug Abuse Patient Records regulations: The Federal rules restrict any use of the information to criminally investigate or prosecute any alcohol or drug abuse patient.[facility] [place] CampusIn the event this information is protected by the Federal Confidentiality of Alcohol and Drug Abuse Patient Records regulations: The Federal rules restrict any use of the information to criminally investigate or prosecute any alcohol or drug abuse patient.[facility] [place] CampusIn the event this information is protected by the Federal Confidentiality of Alcohol and Drug Abuse Patient Records regulations: The Federal rules restrict any use of the information to criminally investigate or prosecute any alcohol or drug abuse patient.[facility] [place] CampusIn the event this information is protected by the Federal Confidentiality of Alcohol and Drug Abuse Patient Records regulations: The Federal rules restrict any use of the information to criminally investigate or prosecute any alcohol or drug abuse patient.[facility] [place] CampusIn the event this information is protected by the Federal Confidentiality of Alcohol and Drug Abuse Patient Records regulations: The Federal rules restrict any use of the information to criminally investigate or prosecute any alcohol or drug abuse patient.[facility] [place] CampusIn the event this information is protected by the Federal Confidentiality of Alcohol and Drug Abuse Patient Records regulations: The Federal rules restrict any use of the information to criminally investigate or prosecute any alcohol or drug abuse patient.[facility] [place] CampusIn the event this information is protected by the Federal Confidentiality of Alcohol and Drug Abuse Patient Records regulations: The Federal rules restrict any use of the information to criminally investigate or prosecute any alcohol or drug abuse patient.[facility] [place] CampusIn the event this information is protected by the Federal Confidentiality of Alcohol and Drug Abuse Patient Records regulations: The Federal rules restrict any use of the information to criminally investigate or prosecute any alcohol or drug abuse patient.[facility] [place] CampusIn the event this information is protected by the Federal Confidentiality of Alcohol and Drug Abuse Patient Records regulations: The Federal rules restrict any use of the information to criminally investigate or prosecute any alcohol or drug abuse patient.[facility] [place] CampusIn the event this information is protected by the Federal Confidentiality of Alcohol and Drug Abuse Patient Records regulations: The Federal rules restrict any use of the information to criminally investigate or prosecute any alcohol or drug abuse patient.[facility] [place] CampusIn the event this information is protected by the Federal Confidentiality of Alcohol and Drug Abuse Patient Records regulations: The Federal rules restrict any use of the information to criminally investigate or prosecute any alcohol or drug abuse patient.[facility] [place] CampusIn the event this information is protected by the Federal Confidentiality of Alcohol and Drug Abuse Patient Records regulations: The Federal rules restrict any use of the information to criminally investigate or prosecute any alcohol or drug abuse patient.[facility] [place] CampusIn the event this information is protected by the Federal Confidentiality of Alcohol and Drug Abuse Patient Records regulations: The Federal rules restrict any use of the information to criminally investigate or prosecute any alcohol or drug abuse patient.[facility] [place] CampusIn the event this information is protected by the Federal Confidentiality of Alcohol and Drug Abuse Patient Records regulations: The Federal rules restrict any use of the information to criminally investigate or prosecute any alcohol or drug abuse patient.[facility] [place] CampusIn the event this information is protected by the Federal Confidentiality of Alcohol and Drug Abuse Patient Records regulations: The Federal rules restrict any use of the information to criminally investigate or prosecute any alcohol or drug abuse patient.[facility] [place] CampusIn the event this information is protected by the Federal Confidentiality of Alcohol and Drug Abuse Patient Records regulations: The Federal rules restrict any use of the information to criminally investigate or prosecute any alcohol or drug abuse patient.[facility] [place] CampusIn the event this information is protected by the Federal Confidentiality of Alcohol and Drug Abuse Patient Records regulations: The Federal rules restrict any use of the information to criminally investigate or prosecute any alcohol or drug abuse patient.[facility] [place] CampusIn the event this information is protected by the Federal Confidentiality of Alcohol and Drug Abuse Patient Records regulations: The Federal rules restrict any use of the information to criminally investigate or prosecute any alcohol or drug abuse patient.[facility] [place] CampusIn the event this information is protected by the Federal Confidentiality of Alcohol and Drug Abuse Patient Records regulations: The Federal rules restrict any use of the information to criminally investigate or prosecute any alcohol or drug abuse patient.[facility] [place] CampusIn the event this information is protected by the Federal Confidentiality of Alcohol and Drug Abuse Patient Records regulations: The Federal rules restrict any use of the information to criminally investigate or prosecute any alcohol or drug abuse patient.[facility] [place] CampusIn the event this information is protected by the Federal Confidentiality of Alcohol and Drug Abuse Patient Records regulations: The Federal rules restrict any use of the information to criminally investigate or prosecute any alcohol or drug abuse patient.[facility] [place] CampusIn the event this information is protected by the Federal Confidentiality of Alcohol and Drug Abuse Patient Records regulations: The Federal rules restrict any use of the information to criminally investigate or prosecute any alcohol or drug abuse patient.[facility] CampusIn the event this information is protected by [...] or prosecute any alcohol or drug abuse patient.[facility] CampusIn the event this information is protected by the Federal Confidentiality of Alcohol and Drug Abuse Patient Records regulations: The Federal rules restrict any use of the information to criminally investigate or prosecute any alcohol or drug abuse patient.[facility] CampusIn the event this information is protected by the Federal Confidentiality of Alcohol and Drug Abuse Patient Records regulations: The Federal rules restrict any use of the information to criminally investigate or prosecute any alcohol or drug abuse patient.[facility] CampusIn the event this information is protected by the Federal Confidentiality of Alcohol and Drug Abuse Patient Records regulations: The Federal rules restrict any use of the information to criminally investigate or prosecute any alcohol or drug abuse patient.[facility] CampusIn the event this information is protected by the Federal Confidentiality of Alcohol and Drug Abuse Patient Records regulations: The Federal rules restrict any use of the information to criminally investigate or prosecute any alcohol or drug abuse patient.[facility] CampusIn the event this information is protected by the Federal Confidentiality of Alcohol and Drug Abuse Patient Records regulations: The Federal rules restrict any use of the information to criminally investigate or prosecute any alcohol or drug abuse patient.[facility] CampusIn the event this information is protected by the Federal Confidentiality of Alcohol and Drug Abuse Patient Records regulations: The Federal rules restrict any use of the information to criminally investigate or prosecute any alcohol or drug abuse patient.[facility] CampusIn the event this information is protected by the Federal Confidentiality of Alcohol and Drug Abuse Patient Records regulations: The Federal rules restrict any use of the information to criminally investigate or prosecute any alcohol or drug abuse patient.[facility] CampusIn the event this information is protected by the Federal Confidentiality of Alcohol and Drug Abuse Patient Records regulations: The Federal rules restrict any use of the information to criminally investigate or prosecute any alcohol or drug abuse patient.[facility] CampusIn the event this information is protected by the Federal Confidentiality of Alcohol and Drug Abuse Patient Records regulations: The Federal rules restrict any use of the information to criminally investigate or prosecute any alcohol or drug abuse patient.[facility] CampusIn the event this information is protected by the Federal Confidentiality of Alcohol and Drug Abuse Patient Records regulations: The Federal rules restrict any use of the information to criminally investigate or prosecute any alcohol or drug abuse patient.[facility] CampusIn the event this information is protected by the Federal Confidentiality of Alcohol and Drug Abuse Patient Records regulations: The Federal rules restrict any use of the information to criminally investigate or prosecute any alcohol or drug abuse patient.[facility] CampusIn the event this information is protected by the Federal Confidentiality of Alcohol and Drug Abuse Patient Records regulations: The Federal rules restrict any use of the information to criminally investigate or prosecute any alcohol or drug abuse patient.[facility] CampusIn the event this information is protected by the Federal Confidentiality of Alcohol and Drug Abuse Patient Records regulations: The Federal rules restrict any use of the information to criminally investigate or prosecute any alcohol or drug abuse patient.[facility] CampusIn the event this information is protected by the Federal Confidentiality of Alcohol and Drug Abuse Patient Records regulations: The Federal rules restrict any use of the information to criminally investigate or prosecute any alcohol or drug abuse patient.[facility] [place] CampusIn the event this information is protected by the Federal Confidentiality of Alcohol and Drug Abuse Patient Records regulations: The Federal rules restrict any use of the information to criminally investigate or prosecute any alcohol or drug abuse patient.[facility] CampusIn the event this information is protected by the Federal Confidentiality of Alcohol and Drug Abuse Patient Records regulations: The Federal rules restrict any use of the information to criminally investigate or prosecute any alcohol or drug abuse patient.[facility] [place] CampusIn the event this information is protected by the Federal Confidentiality of Alcohol and Drug Abuse Patient Records regulations: The Federal rules restrict any use of the information to criminally investigate or prosecute any alcohol or drug abuse patient.[facility] CampusIn the event this information is protected by the Federal Confidentiality of Alcohol and Drug Abuse Patient Records regulations: The Federal rules restrict any use of the information to criminally investigate or prosecute any alcohol or drug abuse patient.[facility] CampusIn the event this information is protected by the Federal Confidentiality of Alcohol and Drug Abuse Patient Records regulations: The Federal rules restrict any use of the information to criminally investigate or prosecute any alcohol or drug abuse patient.[facility] [facility] Reason for Visit (unrecogniz ed section and [...] Referred By Aubree lubin Referred To Contact Diagnoses LEVEL A HEMORRHAGIC STROKE Veronica Velez MD [address] [place] [address] [facility] [address] [place] [address] Referral ID Status Reason Start Date Expiration Date Visits Re quested Visits Authorized [id number] 1 1 Reason Onset Date Comments Nurse [...] with the patie nt Reason Comments Recheck [facility] ER follow up, ab dominal pain Reason Comments New Patient Consult for numbness to right anterior thigh since Feb, Specialty Diagnoses / Procedures Referred By Aubree lubin Referred To Contact [facility] Diagnoses Numbness of anterior thigh Anemia, unspecified type Procedures CONSULT TO NEUROLOGY OFFICE/OUTPATIENT NEW HIGH MDM 60-74 MINUTES Maryam Franco MD [address] [place] [address] Neurological [place] [address] [place] [address] Referral ID Status Reason Start Date Expiration Date Visits Requested Visits Authorized [id number] Pending Review PCP Requested Referral 03/03/2022 03/03/2023 1 1 Reason Onset Date Comments Refill Request 05/15/2022 Reason Comments Appointment Needs rescheduled Reason Onset Date Comments Refill Request 08/18/2022 Reason Comments Hospital F/U [facility] 06/29/23 then wa s transferred to [facility] and then [facility] for about 2 weeks Tube Feeding Assessment [...] follow up, CHF, Pneumonia, COPD Reason Comments [facility] HH PT POC Reason Onset Date Comments Refill Request 10/19/2022 Reason Comments Request Medication List Reason Comments [facility] Update Reason Comments Recheck 2 week Reason Comments Speech Therapy Forms Reason Comments Medication Update Reason Comments Longterm Plan of Care Reason Comments Recheck [facility] Hosp follow up Reason Onset Date Comments Refill Request 10/24/2022 Reason Onset Date Comments Refill Request 01/06/2023 Reason Comments Refill Request Reason Comments Follow Up wanting to get refil ls of [place] Reason Onset Date Comments Refill Request 02/15/2023 [...] utreach discharge 08/10/23 Reason Comments ER F/U [facility] 2..24 ; fall Reason Onset Date Comments Refill Request 08/19/2023 Reason Onset Date Comments Refill Request 09/13/2023 Reason Onset Date Comments Refill Request 09/21/2023 Missed Appointment 09/21/2023 Reason Comments Follow Up Recent fall with sub dural hematoma Reason Onset Date Comments Refill Request 09/27/2023 Specialty Diagnoses / Procedures Referred By Aubree lubin Referred To Contact Diagnoses seizures, hypercapnic Procedures .. Charlene Henderson MD [address] [facility] [place] [address] [address] [place] [address] Referral ID Status Reason Start Date Expiration Date Visits Re quested Visits Authorized [id number] 1 1 Reason Onset Date Comments Refill Request 09/29/2023 Reason Onset Date Comments Refill Request 11/02/2023 Reason Onset Date Comments Population Health Navigation Outreach 11/23/2023 [facility] AWV/HCC and care gaps Reason Onset Date Comments requesting medication that is 11/26/2023 Reason Comments Recheck [facility] discharge, trach and GI tube, want them removed Reason Comments Home Health Point of Care Results Medication Problem Reason Onset Date Comments Refill Request 11/26/2023 Reason Onset Date Comments ACM DONOVAN RN 12/10/2023 ER vs [facility] 12/06/23 Reason Onset Date Comments Refill Request 12/09/2023 Reason Onset Date Comments Refill Request 12/17/2023 Reason Comments Orders Reason Comments Consult Consultation for rem oval of gastrostomy tube. 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) Procedures CONSULT TO GENERAL SURGERY OFFICE/OUTPATIENT [facility]3] 60 MINUTES Issa Herman MD [address] [place] [address] Referral ID Status Reason Start Date Expiration Date V isits Requested Visits Authorized [id number] Closed PCP Requested Referral 12/02/2023 12/01/2024 1 1 Reason Onset Date Comments Refill Request 12/24/2023 Reason Comments Switch rx to different pharmacy Reason Onset Date Comments Refill Request 12/29/2023 Reason Comments 4 week follow-up Reason Comments [facility] Reason Onset Date Comments Refill Request 01/19/2024 Reason Onset Date Comments Population Health Navigation Outreach 01/24/2024 Arlet Barba PCSA Reason Onset Date Comments Refill Request 01/25/2024 Reason Comments [facility] nurse calling to set up home heal Reason Comments Seizures Pt sent from [facility] for evaluation of seizures. Per transport, [...] seizures Procedures .. Alayna Gaxiola MD [address] [address] [address] [place] [id number] Referral ID Status Reason Start Date Expiration Date Visits Re quested Visits Authorized [id number] 1 1 Reason Onset Date Comments Refill Request 02/15/2024 Reason Comments [facility] Reason Comments Cough X1 wk Reason Onset Date Comments Refill Request 02/28/2024 Reason Comments Mental Status Changes Reason Comments Hospital Follow Up Requesting lorazepam Reason Onset Date Comments ACM DONOVAN RN 03/17/2024 Initial ER f/ o outreach Reason Onset Date Comments Refill Request 03/18/2024 Reason Onset Date Comments Refill Request 03/28/2024 Reason Onset Date Comments Population Health Navigation Outreach 04/17/2024 Arlet Barba PCSA Reason Comments New Patient COPD Reason Comments ER F/U Reason Onset Date Comments ACM DONOVAN RN 04/27/2024 ER outreach f ollow up Care Teams (unrecognized sec tion and content) Production Superintendent Relationship Specialty Start Date End Date Maryam Franco MD [address] [place] [address] PCP - General Internal Medicine 12/09/20 Production Superintendent Relationship Specialty Start Date End Date Maryam Franco MD [address] [facility] [place] [address] PCP - General Internal Medicine 12/09/20 Production Superintendent Relationship Specialty Start Date End Date Maryam Franco MD [address] [place] [address] PCP - General Internal Medicine 12/09/20 Production Superintendent Relationship Specialty Start Date End Date Maryam Franco MD [address] [facility] [place] [address] PCP - General Internal Medicine 12/09/20 Production Superintendent Relationship Specialty Start Date End Date Maryam Franco MD [address] [facility] [place] [address] PCP - General Internal Medicine 12/09/20 Production Superintendent Relationship Specialty Start Date End Date Maryam Franco MD [address] [place] [address] PCP - General Internal Medicine 12/09/20 Production Superintendent Relationship Specialty Start Date End Date Maryam Franco MD [address] [place] [address] PCP - General Internal Medicine 12/09/20 Production Superintendent Relationship Specialty Start Date End Date Maryam Franco MD [address] [facility] [place] [address] PCP - General Internal Medicine 12/09/20 Production Superintendent Relationship Specialty Start Date End Date Maryam Franco MD [address] [facility] [place] [address] PCP - General Internal Medicine 06/15/21 Production Superintendent Relationship Specialty Start Date End Date Maryam Franco MD [address] [facility] [place] [address] PCP - General Internal Medicine 12/09/20 Production Superintendent Relationship Specialty Start Date End Date Maryam Franco MD [address] [place] [address] PCP - General Internal Medicine 12/09/20 Production Superintendent Relationship Specialty Start Date End Date Maryam Franco MD [address] [place] [address] PCP - General Internal Medicine 12/09/20 Production Superintendent Relationship Specialty Start Date End Date Maryam Franco MD [address] [place] [address] PCP - General Internal Medicine 12/09/20 Production Superintendent Relationship Specialty Start Date End Date Maryam Franco MD [address] [place] [address] PCP - General Internal Medicine 12/09/20 Production Superintendent Relationship Specialty Start Date End Date Maryam Franco MD [address] [facility] [place] [address] PCP - General Internal Medicine 12/09/20 Production Superintendent Relationship Specialty Start Date End Date Maryam Franco MD [address] [facility] [place] [address] PCP - General Internal Medicine 12/09/20 Production Superintendent Relationship Specialty Start Date End Date Maryam Franco MD [address] [facility] [place] [address] PCP - General Internal Medicine 12/09/20 Production Superintendent Relationship Specialty Start Date End Date Maryam Franco MD [address] [facility] [place] [address] PCP - General Internal Medicine 12/09/20 Production Superintendent Relationship Specialty Start Date End Date Maryam Franco MD [address] [facility] [place] [address] PCP - General Internal Medicine 12/09/20 Production Superintendent Relationship Specialty Start Date End Date Maryam Franco MD [address] [place] [address] PCP - General Internal Medicine 12/09/20 Production Superintendent Relationship Specialty Start Date End Date Maryam Franco MD [address] [place] [address] PCP - General Internal Medicine 12/09/20 Production Superintendent Relationship Specialty Start Date End Date Maryam Franco MD [address] [place] [address] PCP - General Internal Medicine 12/09/20 Production Superintendent Relationship Specialty Start Date End Date Maryam Franco MD [address] [place] [address] PCP - General Internal Medicine 12/09/20 Production Superintendent Relationship Specialty Start Date End Date Maryam Franco MD [address] [place] [address] PCP - General Internal Medicine 12/09/20 Production Superintendent Relationship Specialty Start Date End Date Maryam Franco MD [address] [place] [address] PCP - General Internal Medicine 12/09/20 Production Superintendent Relationship Specialty Start Date End Date Maryam Franco MD [address] [place] [address] PCP - General Internal Medicine 12/09/20 Production Superintendent Relationship Specialty Start Date End Date Maryam Franco MD [address] [place] [address] PCP - General Internal Medicine 12/09/20 Production Superintendent Relationship Specialty Start Date End Date Maryam Franco MD [address] [place] [address] PCP - General Internal Medicine 12/09/20 Production Superintendent Relationship Specialty Start Date End Date Maryam Franco MD [address] [place] [address] PCP - General Internal Medicine 12/09/20 Production Superintendent Relationship Specialty Start Date End Date Maryam Franco MD [address] [place] [address] PCP - General Internal Medicine 12/09/20 Production Superintendent Relationship Specialty Start Date End Date Maryam Franco MD [address] [place] [address] PCP - General Internal Medicine 12/09/20 Production Superintendent Relationship Specialty Start Date End Date Maryam Franco MD [address] [place] [address] PCP - General Internal Medicine 12/09/20 Production Superintendent Relationship Specialty Start Date End Date Maryam Franco MD [address] [place] [address] PCP - General Internal Medicine 12/09/20 Production Superintendent Relationship Specialty Start Date End Date Maryam Franco MD [address] [place] [address] PCP - General Internal Medicine 12/09/20 Production Superintendent Relationship Specialty Start Date End Date Maryam Franco MD [address] [place] [address] PCP - General Internal Medicine 12/09/20 Production Superintendent Relationship Specialty Start Date End Date Maryam Franco MD [address] [place] [address] PCP - General Internal Medicine 12/09/20 Production Superintendent Relationship Specialty Start Date End Date Maryam Franco MD [address] [place] [address] PCP - General Internal Medicine 12/09/20 Production Superintendent Relationship Specialty Start Date End Date Maryam Franco MD [address] [place] [address] PCP - General Internal Medicine 12/09/20 Production Superintendent Relationship Specialty Start Date End Date Maryam Franco MD [address] [place] [address] PCP - General Internal Medicine 12/09/20 Seth Chawla [facility] [address] [place] [address] Transitional Care Pharmacist Pharmacy 08/11/23 09/09/23 Jordan Rowe, unit assembler Integrated Marketing Specialist 08/11/23 Production Superintendent Relationship Specialty Start Date End Date Maryam Franoc MD [address] [place] [address] PCP - General Internal Medicine 12/09/20 Seth Chawla [facility] [address] [place] [address] Transitional Care Pharmacist Pharmacy 08/11/23 09/09/23 Jordan Rowe, unit assembler Integrated Marketing Specialist 08/11/23 Production Superintendent Relationship Specialty Start Date End Date Maryam Franco MD [address] [place] [address] PCP - General Internal Medicine 12/09/20 Seth Chawla [facility] [address] [place] [address] Transitional Care Pharmacist Pharmacy 08/11/23 09/09/23 Jordan Rowe, unit assembler Integrated Marketing Specialist 08/11/23 Production Superintendent Relationship Specialty Start Date End Date Maryam Franco MD [address] [place], [place] [address] PCP - General Internal Medicine 12/09/20 Seth Chawla [facility] [address] [place] [address] Transitional Care Pharmacist Pharmacy 08/11/23 09/09/23 Jordan Rowe, unit assembler Integrated Marketing Specialist 08/11/23 Production Superintendent Relationship Specialty Start Date End Date Maryam Franco MD [address] [place] [address] PCP - General Internal Medicine 12/09/20 Production Superintendent Relationship Specialty Start Date End Date Maryam Franco MD [address] [place] [address] PCP - General Internal Medicine 12/09/20 Production Superintendent Relationship Specialty Start Date End Date Maryam Franco MD [address] [place] [address] PCP - General Internal Medicine 12/09/20 Production Superintendent Relationship Specialty Start Date End Date Maryam Franco MD [address] [place] [address] PCP - General Internal Medicine 12/09/20 Production Superintendent Relationship Specialty Start Date End Date Joy Stahl [address] [place] [address] PCP - General 02/10/17 Production Superintendent Relationship Specialty Start Date End Date Maryam Franco MD [address] [place] [address] PCP - General Internal Medicine 12/09/20 Production Superintendent Relationship Specialty Start Date End Date Maryam Franco MD [address] [place] [address] PCP - General Internal Medicine 12/09/20 Production Superintendent Relationship Specialty Start Date End Date Maryam Franco MD [address] [place] [address] PCP - General Internal Medicine 12/09/20 Production Superintendent Relationship Specialty Start Date End Date Maryam Franco MD [address] [place] [address] PCP - General Internal Medicine 12/09/20 Production Superintendent Relationship Specialty Start Date End Date Maryam Franco MD [address] [place] [address] PCP - General Internal Medicine 12/09/20 Production Superintendent Relationship Specialty Start Date End Date Maryam Franco MD [address] [place] [address] PCP - General Internal Medicine 12/09/20 Production Superintendent Relationship Specialty Start Date End Date Maryam Franco MD [address] [place] [address] PCP - General Internal Medicine 12/09/20 Production Superintendent Relationship Specialty Start Date End Date Maryam Franco MD [address] [place] [address] PCP - General Internal Medicine 12/09/20 Production Superintendent Relationship Specialty Start Date End Date Maryam Franco MD [address] [place] [address] PCP - General Internal Medicine 12/09/20 Production Superintendent Relationship Specialty Start Date End Date Maryam Franco MD [address] [place] [address] PCP - General Internal Medicine 12/09/20 Production Superintendent Relationship Specialty Start Date End Date Maryam Franco MD [address] [place] [address] PCP - General Internal Medicine 12/09/20 Production Superintendent Relationship Specialty Start Date End Date Joy Stahl [address] [place] [address] PCP - General 02/10/17 02/01/24 Maryam Franco MD [address] [place] [address] PCP - General Internal Medicine 02/02/24 Production Superintendent Relationship Specialty Start Date End Date Maryam Franco MD [address] [place] [address] PCP - General Internal Medicine 12/09/20 Production Superintendent Relationship Specialty Start Date End Date Maryam Franco MD [address] [place] [address] PCP - General Internal Medicine 12/09/20 Production Superintendent Relationship Specialty Start Date End Date Maryam Franco MD [address] [place] [address] PCP - General Internal Medicine 12/09/20 Production Superintendent Relationship Specialty Start Date End Date Maryam Franco MD [address] [place] [address] PCP - General Internal Medicine 12/09/20 Production Superintendent Relationship Specialty Start Date End Date Maryam Franco MD [address] [place] [address] PCP - General Internal Medicine 12/09/20 Production Superintendent Relationship Specialty Start Date End Date Maryam Franco MD [address] [place] [address] PCP - General Internal Medicine 12/09/20 Production Superintendent Relationship Specialty Start Date End Date Maryam Franco MD [address] [place] [address] PCP - General Internal Medicine 12/09/20 Production Superintendent Relationship Specialty Start Date End Date Maryam Franco MD [address] [place] [address] PCP - General Internal Medicine 12/09/20 Production Superintendent Relationship Specialty Start Date End Date Maryam Franco MD [address] [place] [address] PCP - General Internal Medicine 12/09/20 Production Superintendent Relationship Specialty Start Date End Date Maryam Franco MD [address] [place] [address] PCP - General Internal Medicine 12/09/20 Scheduled Active and Recently Administ ered Medications (unrecognized section and content) Medication Order 01/25/2022 01/26/2022 01/27/2022 budesonide-glycopyrrol ate-Formoterol (BREZTRI) 160-9-4.8 MCG/ACT inhaler 1 puff 1 puff, Inhalation, 2 TIMES DAILY, First dose on Wed01/09/22 at 1700, Until Discontinued 1126 (Given - Provider: Elda Neville RCP - Comment: rt not available)2228 (Given - Provider: Jackie Allison, RT) 0837 (Given - Provider: Bernardino Meyers RCP)2208 (Given - Provider: Jackie Allison, [...] the pellets and damage the enteric coating. 0908 (Given - Provider: Sinai Dan RN) 0834 [...] modification) on Wed01/20/22 at 0900, Until Discontinued 0909 (Given - Provider: Sinai Dan RN) 0834 (Given - Provider: Huong Patino RN) 0933 (Given - Provider: Kaylen Payton RN) melatonin tablet 3 mg 3 mg, Oral, DAILY AT BEDTIME, First dose on Wed01/16/22 at 2100, Until Discontinued 2005 (Given - Provider: Cheo Miguel RN) 2038 (Given - Provider: Anayeli Oneill, FINESSE) QUEtiapine (SEROquel) tablet 25 mg 25 mg, Oral, DAILY AT BEDTIME, First dose on Wed01/16/22 at 2100, Until Discontinued 2005 (Given - Provider: Cheo Miguel RN) 2038 (Given - Provider: Anayeli Oneill, FINESSE) senna (SENOKOT) tablet 8.6 mg(Linked Group 1) 8.6 mg, Oral, DAILY, First dose (after last modification) on Wed01/15/22 at 0900, Until Discontinued 908 (Given - Provider: Sinai Dan RN) 0834 (Given - Provider: Huong Patino RN) 0933 (Given - Provider: Kaylen Payton RN) senna (SENOKOT) tablet 8.6 mg(Linked Group [...] modification) on Wed01/16/22 at 2100, Until Discontinued 2099 (Automatically Held) 2099 (Automatically Held) 1900 (Unheld by provider - Provider: System Discharge) [...] Mcneil RN) 1039 (Given - Provider: Huong Patino, RN) acetaminophen (TYLENOL) tablet 650 mg(Linked Group 2) 650 mg, Per NG tube, EVERY 4 HOURS NEEDED, Starting on Sara 01/15/22 at 1450, Until Wed01/27/22 at 1901, Mild Pain, Other, Moderate Pain, Severe Pain, Oral temp > 99.5 F, Maximum dose of acetaminophen is 4000 mg from all sources in 24 hours. 0249 (See Alternative - Provider: Courtney Mcneil RN) 1039 (See Alternative - Provider: Huong Patino, RN) albuterol inhaler 2 puff 2 puff, Inhalation, 4 TIMES DAILY NEEDED, Starting on 01/17/22 at 1245, Until Wed01/27/22 at 1901, Shortness of Breath, Wait at least one(1) full minute between inhalations 1608 (Given - Provider: Bernardino Meyers RCP) bisacodyl (DULCOLAX) suppository 10 mg [...] 1901, Anxiety 0506 (Given - Provider: Courtney Mcneil, RN)1212 (Given - Provider: Sinai Dan, FINESSE)2006 (Given - Provider: Cheo Miguel, FINESSE) 1052 (Given - Provider: Huong Patino, FINESSE) 0456 (Given - Provider: Anayeli Oneill RN)1649 (Given - Provider: Kaylen Payton RN) labetalol (NORMODYNE) injection 10 mg(Linked Group 6) [...] Mcneil RN)1319 (Given - Provider: Sinai Dan, FINESSE)2005 (Given - Provider: Cheo Miguel RN) 625 (Given - Provider: Cheo Miguel RN)162 (Given - Provider: Klaudia Osborn, FINESSE)220 (Given - Provider: Anayeli Oneill RN) 0456 (Given - Provider: Anayeli Oneill RN)0931 (Given - Provider: Kaylen Payton RN)1333 (Given - Provider: Kaylen Payton RN) oxyCODONE (ROXICODONE) tablet 5 mg(Linked Group 8) 5 mg, Per NG tube, EVERY 4 HOURS NEEDED, Starting on Wed01/09/22 at 0132, Until Wed01/27/22 at 1901, Moderate Pain, May be crushed and added to water for administration via NG tube. 0506 (See Alternative - Provider: Courtney Mcneil RN)1319 (See Alternative - Provider: Sinai Dan, FINESSE)2005 (See Alternative - Provider: Cheo Miguel RN) 625 (See Alternative - Provider: Cheo Miguel RN)162 (See Alternative - Provider: Klaudia Osborn, FINESSE)2203 (See Alternative - Provider: Anayeli Oneill RN) 0456 (See Alternative - Provider: Anayeli Oneill RN)0931 (See Alternative - Provider: Kaylen Payton RN)1333 (See Alternative - Provider: Kaylen Payton RN) polyethylene glycol (MIRALAX) packet 17 g(Linked Group [...] tube, EVERY 4 HOURS NEEDED, Starting on Sara 01/15/22 at 1450, Until Wed01/27/22 at 1901, Mild [...] glucose is greater than 200mg/dl, then notify Assistant Store Director. And BLOOD GLUCOSE (POC DEVICE) UDPRN (CANCELED) [...] Intravenous, ADMINISTER DIRECTED, Starting on Wed01/09/22 at 013, Until Wed01/27/22 at 1901, Blood glucose <80 [...] at 0133, Until Specified
Who to Notify: Assistant Store Director
For all Blood Glucose LESS THAN 80 mg/dl, notify Assistant Store Director after treatment per Hypoglycemia in Non- Adults [...] Wed01/09/22 at 0132, Until Wed01/27/22 at 190, SBP > 140 [...] Wed01/09/22 at 0132, Until Wed01/27/22 at 190, Moderate Pain
May also be crushed and added to water for patient unable to tolerate oral tab.
Or oxyCODONE (ROXICODONE) tablet 5 mgJump to med 5 mg, Per NG tube, EVERY 4 HOURS NEEDED, Starting on Wed01/09/22 at 0132, Until Wed01/27/22 at 190, Moderate Pain
May be crushed and added to water for administration via NG tube.
Group 9: polyethylene glycol (MIRALAX) packet 17 gJump to med 17 g, Oral, DAILY NEEDED, Starting on Wed01/09/22 at 0132, Until Wed01/27/22 at 190, Constipation If No Bowel Movement in 48 Hours Or polyethylene glycol (MIRALAX) packet 17 gJump to med 17 g, Per NG tube, DAILY NEEDED, Starting on Wed01/09/22 at 0132, Until Wed01/27/22 at 190, Constipation If No Bowel Movement in 48 Hours Scheduled Medication Order 10/10/2023 10/11/2023 10/12/2023 ARIPiprazole (Abilify) tablet 2 mg 2 mg, Oral, Daily, First dose on Wed10/09/23 at 1045 0858 (Given - Provider: Yanet Maldonado RN) 0813 (Given - Provider: Mari Robertson RN) 0901 (Given - Provider: Trinity Salinas) aspirin chewable tablet 81 mg 81 mg, Per G Tube, Daily, First dose (after last modification) on Wed10/08/23 at 0900 0855 (Given - Provider: Yanet Maldonado RN) 0815 (Given - Provider: Mari Robertson RN) 0900 (Given - Provider: Trinity Salinas) atorvastatin (Lipitor) tablet 40 mg 40 mg, Per G Tube, Nightly, First dose (after last modification) on Sara 10/07/23 at 2100 2115 (Given - Provider: Francesca Forrest RN) 2055 (Given - Provider: Steven Estrada RN) budesonide (Pulmicort) 0.5 MG/2ML nebulizer solution 0.5 mg 0.5 mg, Nebulization, Daily, First dose on 09/26/23 at 1715, Rinse mouth with water after use to reduce aftertaste and incidence of candidiasis. Do not swallow. 0748 (Given - Provider: Camlio Moreno RCP) 0843 (Given - Provider: Norris [...] crush or chew., , On hold since [facility] 10/07/2023 at 1335 until manually unheld 0800 [...] at 0900 0915 (Given - Provider: Yanet Maldonaod RN) 0814 (Given - Provider: Mari Robertson RN) 0902 (Given - Provider: Trinity Salinas) gabapentin (Neurontin) solution 300 mg 300 mg, Per G Tube, Nightly, First dose (after last modification) on Wed10/07/23 at 2100 2100 (Given - Provider: Francesca [...] Forrest RN) 0617 (Given - Provider: Steven Estrada RN) levETIRAcetam (Keppra) 100 MG/ML solution 1,000 mg 1,000 mg, Per G Tube, 2 times daily, First dose (after last modification) on Sara 10/07/23 at 2100 0856 (Given - Provider: Yanet Maldonado RN)2116 (Given - Provider: Francesca Forrest RN) 0814 (Given - Provider: Mari Robertson RN)2057 (Given - Provider: Steven Estrada RN) 0903 (Given - Provider: Trinity Salinas) metoprolol succinate XL (Toprol-XL) 24 hr tablet 25 mg 25 mg, Oral, Daily, First dose on Wed10/10/23 at 0900, Do not crush or chew. 0854 (Given - Provider: Yanet Maldonado RN) 0815 (Given - Provider: Mari Robertson RN) 0901 (Given - Provider: Trinity Salinas) polyethylene glycol (PEG) 3350 (Miralax) packet 17 g 17 g, Per G Tube, 2 times daily, First dose (after last modification) on Sara 10/07/23 at 2100, Indications: Constipation 0855 (Given - Provider: Yanet Maldonado RN)2099 (Not Given - Provider: Francesca Forrest RN - Reason: Patient/family refused) 0815 (Given - Provider: Mari Robertson RN)2058 (Given - Provider: Steven Estrada RN) 0903 (Given - Provider: Trinity Salinas) predniSONE (Deltasone) tablet 10 mg (COMPLETED)(Linked Group 1) 10 mg, Oral, Daily, First dose on Wed10/09/23 at 0900, For 2 doses 0855 (Given - Provider: Yanet Maldonado, FINESSE) predniSONE (Deltasone) tablet 5 mg (COMPLETED)(Linked Group 1) 5 mg, Oral, Daily, First dose on Wed10/11/23 at 0900, For 2 doses 0814 (Given - Provider: Mari Robertson, FINESSE) 1119 (Given - Provider: Analy Ramirez RN) Propylene Glycol-Glycerin (Artificial tears) 1-0.3 % solution 1 drop 1 drop, Both Eyes, Daily, First dose on Wed09/27/23 at 2014 0858 (Given - Provider: Yanet Maldonado, FINESSE) 0814 (Given - Provider: Mari Robertson RN) 0905 (Given - Provider: Trinity Salinas) QUEtiapine (SEROquel) tablet 50 mg 50 mg, Per G Tube, Daily, First dose (after last modification) on Wed10/08/23 at 0900 0854 (Given - Provider: Yanet Maldonado RN) 0815 (Given - Provider: Mari Robertson RN) 0900 (Given - Provider: Trinity Salinas) rOPINIRole (Requip) tablet 1 mg 1 mg, Oral, Nightly, First dose on Wed10/09/23 at 2100 2116 (Given - Provider: Francesca Forrest RN) 2054 (Given - Provider: Steven Estrada, FINESSE) Senna (Senokot) syrup 10 mL 10 mL, Per G Tube, 2 times daily, First dose (after last modification) on Wed10/07/23 at 2100 0901 (Given - Provider: Yanet Maldonado, FINESSE)2100 (Not Given - Provider: Francesca Forrest, RN - Reason: Patient/family refused) 0813 (Given - Provider: Mari Robertson, FINESSE)2057 (Given - Provider: Steven Estrada, FINESSE) 09 (Given - Provider: Trinity Salinas) stomahesive in petrolatum (ET Mix) Topical, Every 8 hours, First dose on Wed10/05/23 at 1245 0445 (Given - Provider: Francesca Forrest RN)1457 (Given - Provider: Yanet Maldonado RN)2045 (Given - Provider: Francesca Forrest RN) 0445 (Given - Provider: Francesca Forrest RN)1140 (Given - Provider: Mari Robertson, RN)2054 (Given - Provider: Steven Estrada RN) 0619 (Given - Provider: Steven Estrada RN)1125 (Given - Provider: Analy Ramirez, FINESSE) thiamine (Vitamin B1) tablet 100 mg 100 mg, Per PEG Tube, Daily, First dose on Sara 10/07/23 at 2100 2115 (Given - Provider: Francesca Forrest RN) 2055 (Given - Provider: Steven Estrada RN) PRN Medication Order 10/10/2023 10/11/2023 10/12/2023 [...] Forrest RN) 2055 (Given - Provider: Steven Estrada RN) 06 (Given - Provider: Steven Estrada, RN) melatonin tablet 5 mg 5 mg, Oral, Nightly PRN, sleep, Starting on Wed10/06/23 at 2018, 1st line 2115 (Given - Provider: Francesca Forrest RN) 2055 (Given - Provider: Steven Estrada RN) naloxone (Narcan) injection 0.4 mg 0.4 mg, IntraVENous, Every 5 min PRN, opioid reversal, respiratory depression, Starting on Wed09/28/23 at 0647, +++ For RR <10, pinpoint pupils, over sedation for opioid reversal - MUST notify collections rep provider immediately after first dose, may give [...] Maldonado RN)1733 (Given - Provider: Yanet Maldonado RN) 1139 (Given - Provider: Mari Robertson RN)2054 (Given - Provider: Steven Estrada RN) 0617 (Given - Provider: Steven Estrada RN) Propylene Glycol-Glycerin (Artificial tears) 1-0.3 % solution 1 drop 1 drop, Both Eyes, As needed, dry eyes, Starting on Wed09/26/23 at 1509 sodium chloride 0.9 % infusion [...] 2114 (Given - Provider: Francesca Forrest, RN) 2056 (Given - Provider: Steven Estrada RN) Linked Groups Order Group 1: predniSONE (Deltasone) tablet 40 mg (COMPLETED) 40 mg, Oral, Daily, First dose on Wed10/05/23 at 0900, For 2 doses Followed by predniSONE (Deltasone) tablet 20 mg (COMPLETED) 20 mg, Oral, Daily, First dose on Wed10/07/23 at 0900, For 2 doses Followed by predniSONE (Deltasone) tablet 10 mg (COMPLETED)Jump to med 10 mg, Oral, Daily, First dose on Wed10/09/23 at 0900, For 2 doses Followed by [...] Acuña, FINESSE) 0911 (Given - Provider: Char Acuña RN) enoxaparin (Lovenox) syringe 40 mg 40 mg, SubCUTAneous, Every 24 hours scheduled (Daily), First dose on 01/29/24 at 0900, Indication of Use: Prophylaxis-DVT/PE, Indications: Prophylaxis of Venous Thromboembolism 935 (Given - Provider: Simone Leonardo) 08 (Given - Provider: Char Acuña, FINESSE) 09 (Given - Provider: Char Acuña, FINESSE) famotidine (Pepcid) tablet 20 mg 20 mg, Oral, 2 times daily, First dose on 02/06/24 at 2100 0935 (Given - Provider: Simone Leonardo)2049 (Given - Provider: Emily Taylor RN) 827 (Given - Provider: Char Acuña RN)2215 (Given - Provider: Adrian Sethi RN) 09 (Given - Provider: Char Acuña RN) melatonin tablet 3 mg 3 mg, Oral, Nightly, First dose on 01/29/24 at 2100 2049 (Given - Provider: Emily Taylor RN) 2215 (Given - Provider: Adrian Sethi RN) mometasone-formoterol (Dulera 200) 200-5 MCG/ACT inhaler 2 puff 2 puff, Inhalation, 2 times daily, First dose on 02/06/24 at 0945, Rinse mouth with water after use to reduce aftertaste and incidence of candidiasis. Do not swallow. 0938 (Given - Provider: Simone Leonardo)2050 (Given - Provider: Emily Taylor RN) 08 (Given - Provider: Char Acuña RN)2216 (Given - Provider: Adrian Sethi RN) 0912 (Given - Provider: Char Acuña, [...] 0829 (Given - Provider: Char Acuña RN) 09 (Given - Provider: Char Acuña RN) PRN Medication Order 02/11/2024 02/12/2024 02/13/2024 Acetaminophen [...] (1-3), Starting on 01/29/24 at 0859, Give NV if unable to administer by mouth or feeding tube. If inadequate response within 60 minutes, proceed to next-line agent for same PRN reason or contact provider if no further options ordered. 0408 (See Alternative - Provider: Bob Cano RN) 0608 (See Alternative - Provider: Emily Taylor RN)1710 (See Alternative - Provider: Char Acuña, FINESSE) acetaminophen (Tylenol) tablet 650 mg(Linked Group 2) [...] Every 4 hours PRN, cough, Starting on Wed02/07/24 at 1853 2333 (Given - Provider: Emily Taylor, FINESSE) hydrOXYzine pamoate (Vistaril) capsule 25 mg 25 mg, Oral, Every 8 hours PRN, anxiety, Starting on Wed02/04/24 at 1459 0301 (Given - Provider: Morgan Villafuerte, FINESSE)1116 (Given - Provider: Elizabeth Salazar, FINESSE) 0351 (Given - Provider: Emily Taylor RN - Comment: arm band will not scan)1710 (Given - Provider: Char Acuña, FINESSE) 0911 (Given - Provider: Char Acuña, FINESSE) traZODone (Desyrel) tablet 50 mg 50 mg, Oral, Nightly PRN, sleep, Starting on Wed02/04/24 at 1441 2333 (Given - Provider: Emily Taylor, FINESSE) 0035 (Given - Provider: Adrian Sethi, RN) zolpidem (Ambien) tablet 2.5 mg 2.5 mg, Oral, Nightly PRN, sleep, Starting on Wed02/11/24 at 1152 2049 (Given - Provider: Emily Taylor, FINESSE) Linked Groups Order Group 1: predniSONE (Deltasone) [...] on 02/12/24 at 0900, For 2 doses Group 2: [...] (1-3), Starting on 01/29/24 at 0859, Give NV if unable to administer by mouth or feeding tube. If inadequate response within 60 minutes, proceed to next-line agent for same PRN reason or contact provider if no further options ordered. Care Team (unrecognized sect ion and content) Care Team Personnel Name: JOY STAHL MD Member Role: Primary Care Physician Address: Address: [address] [place] [address] Care Team Related Persons Name: DEX PATRICIA [...] BE BASED ON THE PRIMARY CLINICAL RECORDS. [facility] [employer] provides no warranty or guarantee of the accuracy or completeness of information in this document.
--- NOTE | 2024-04-29 10:50 | RAD_ITS ---
INDICATION: chest pain EXAMINATION/TECHNIQUE: X-RAY - XR Chest 1 View COMPARISON: Prior study dated: 04/24/2024 FINDINGS: LINES/DEVICES: Tracheostomy tube in stable position. LUNGS: No consolidation, edema or effusion. No pneumothorax. MEDIASTINUM AND CARDIOVASCULAR STRUCTURES: Cardiac silhouette not enlarged. Central airways and mediastinal contour are unremarkable. BONES AND SOFT TISSUES: Unremarkable. RAD/Chest 1 View (Portable) IMPRESSION: No radiographic evidence of acute cardiopulmonary disease. Electronically Signed: Michael Benitez MD at 11:56 EDT ,
[2024-04-29 11:05] LABS: Color, Urine Yellow (Yellow); Glucose, Dipstick Normal (Normal); Ketone-Dipstick Negative (Negative); Leukocyte Esterase-Dipstick Negative /ul (Negative); Nitrite-Dipstick Negative (Negative); Occult Blood-Urine 50 /ul (Negative); Protein-Dipstick 100 mg/dl (Negative); Urine Bilirubin Dipstick Negative (Negative); Urine Clarity Clear (Clear); Urine Urobilinogen Normal (Normal)
[2024-04-29] MEDS: Ipratropium/Albuterol Sulfate 3 ML AMPUL.NEB INHALATION (11:08)
[2024-04-29 11:09] LABS: BUN 12 mg/dL (7-18); BUN/Creat Ratio 15.2 RATIO (10-20); Calcium,Total 9.2 mg/dL (8.5-10.1); Carbon Dioxide > 45.0 mmol/L (21.0-32.0); Chloride 99 mmol/L (98-107); Creatinine, Serum 0.79 mg/dL (0.55-1.02); EST Glomerular Filtration Rate 77 mL/min (>60); Est Glom Filt Rate - Afr Amer 93 mL/min (>60); Glucose 132 mg/dL (74-106); Potassium 4.3 mmol/L (3.5-5.1); Sodium Level 141 mmol/L (136-145); Troponin-I HS 26 pg/mL (3.0-54.0)
[2024-04-29 11:16] LABS: Bacteria 2+ /hpf (None Seen); Hyaline Cast 10-25 SEEN /lpf (0-5); Red Blood Cells-Urine 5-10 SEEN /hpf (0-5); Squamous Epithelial Cells - UA 0-5 SEEN /hpf (5-10); White Blood Cells 0-5 SEEN /hpf (0-5)
[2024-04-29 11:17] LABS: Mucous, Urine 2+ /hpf (<or=2+)
--- NOTE | 2024-04-29 11:27 | NURSING ---
DR JORGE JUDD
--- NOTE | 2024-04-29 11:27 | PCM.HP.STD ---
HPI - General General Date of Admission: 04/29/24 Date of Service: 04/29/24 Chief Complaint: Involuntary movement HPI Narrative MARCO MAY, is a 68 F with past medical history significant for chronic hypoxic/hypercapnic respiratory failure status post trach placement, history of seizure disorder who presented to the emergency department with involuntary movement.. She also did experience profound weakness. Called the EMS squad, who found patient to be hypoxic with oxygen saturation in the mid 70s. Was placed on supplemental oxygen and brought to the emergency department. Workup in the ED did reveal pCO2 of 109 and pH of 7.24 on VBG. Patient had apparently not been compliant with CPAP therapy. Was placed on the vent and admitted to the intensive care unit for further management [facility] Medical History Hypothyroidism Former smoker BiPAP (biphasic positive airway pressure) dependence On home oxygen therapy Asthma Seizures Stroke/cerebrovascular accident Noncompliance Diastolic CHF History of alcohol abuse Aspiration pneumonia due to gastric secretions Carcinoma in situ of breast Benign neoplasm of colon Takotsubo cardiomyopathy (06/17/21) Ischemic cerebrovascular accident (CVA) (02/06/17) Non-rheumatic mitral regurgitation Anxiety and depression Non-ischemic cardiomyopathy Essential (primary) hypertension Secondary pulmonary arterial hypertension Chronic anemia GERD (gastroesophageal reflux disease) TIO (obstructive sleep apnea) History of non-ST elevation myocardial infarction (NSTEMI) (02/03/17) History of DVT of lower extremity (02/11/17) Insomnia Hyperlipidemia Daytime hypersomnia Hemorrhagic cerebrovascular accident (CVA) (02/09/17) COPD (chronic obstructive pulmonary disease) Home Medications ?Medication ?Instructions ?Recorded ?Last Taken ?Type cholecalciferol (vitamin D3) 25 25 mcg PO DAILY supplement 11/03/20 Unknown History mcg (1,000 unit) tablet (Vitamin D3) pantoprazole 40 mg tablet,delayed 40 mg PO DAILY GERD 11/03/20 11/15/23 History release (Protonix) aripiprazole 2 mg tablet (Abilify) 2 mg PO .daily QHS mental health / 08/25/22 11/15/23 History sleep atorvastatin 40 mg tablet 40 mg PO QHS cholesterol 08/25/22 11/15/23 History metoprolol succinate 25 mg 25 mg PO DAILY blood pressure 08/25/22 11/15/23 History tablet,extended release 24 hr phenytoin 100 mg/4 mL oral 100 mg (4 mL) PO Q8 seizures 30 10/12/22 Unknown Rx suspension days #360 mL duloxetine 30 mg capsule,delayed 60 mg PO DAILY mental health 11/11/22 11/15/23 History release furosemide 20 mg tablet 20 mg PO BIDCM diuretic 11/11/22 11/15/23 History mirtazapine 7.5 mg tablet 7.5 mg PO QHS mental health #30 11/11/22 11/14/23 Rx tabs albuterol sulfate 2.5 mg/3 mL 2.5 mg (3 mL) inhalation Q2H PRN 06/30/23 11/15/23 Rx (0.083 %) solution for nebulization PRN Dyspnea, wheezing #180 mL albuterol sulfate 90 mcg/actuation 2 inh inhalation Q4H breathing 06/30/23 11/15/23 Rx aerosol inhaler #8.5 grams fluticasone fur. 100 mcg-umeclid 1 inh inhalation DAILY breathing 06/30/23 11/15/23 Rx 62.5 mcg-vilant 25 mcg 30 days #60 ea inhalat.powder (Trelegy Ellipta) aspirin 81 mg tablet,delayed 81 mg PO DAILY heart health 11/15/23 11/15/23 History release (Adult Aspirin Regimen) escitalopram oxalate 20 mg tablet 20 mg PO DAILY mental health 11/15/23 11/15/23 History hydroxyzine pamoate 25 mg capsule 25 mg PO TID anxiety 11/15/23 11/15/23 History ipratropium 0.5 mg-albuterol 3 mg 3 ml inhalation Q6H breathting 11/15/23 11/15/23 History (2.5 mg base)/3 mL nebulization soln zolpidem 10 mg tablet 10 mg PO QHS PRN insomnia 11/15/23 11/14/23 History acetaminophen 325 mg tablet 650 mg (2 x 325 mg) PO Q4H PRN PRN 11/18/23 Unknown Rx Fever, pain 1-04/13 #0 tabs dextromethorphan-guaifenesin 30 2 tab PO BID cough 7 days #28 tabs 11/18/23 Unknown Rx mg-600 mg tablet extended [id number] hr (Mucinex DM) sennosides 8.6 mg-docusate sodium 2 tab PO BID PRN PRN Constipation 11/18/23 Unknown Rx 50 mg tablet (Stool #0 tabs Softener-Stimulant Laxative) potassium chloride 20 mEq 20 meq PO BID supplement 01/28/24 Unknown History tablet,extended release(part/cryst) (Klor-Con M) L.acidophil,salivari-Bifido 1 cap PO BID #0 caps 03/08/24 Unknown Rx bifidum-Strep thermoph 175 mg capsule nystatin 100,000 unit/mL oral 5 ml mucous membrane TID 03/24/24 Unknown Rx suspension inflammation #250 mL buspirone 5 mg tablet 5 - 10 mg PO TID 04/29/24 Unknown History Allergy/AdvReac Type Severity Reaction Status Date / Time tetanus and diphtheria Allergy Hives Verified 04/29/24 10:23 toxoids (tetanus & diphtheria toxoids) Family History Sister Cancer lung Father Cancer lung Mother Cancer lung Surgical History S/P emergency tracheotomy for assistance in breathing History of tracheostomy S/P percutaneous endoscopic gastrostomy (PEG) tube placement History of left heart catheterization (06/17/21) History of bilateral cataract extraction Hx of appendectomy H/O: section History of lumpectomy History of cholecystectomy Social History household members: spouse Smoking Status: Former smoker how long ago did patient quit smokin, 1pk/day second hand exposure: Yes alcohol intake: former substance use type: does not use what type of physical activity do you participate in: walking frequency: daily ROS ROS Narrative GENERAL: denies fever, chills, night sweats, weight loss, anorexia HEENT: denies headache, sinus congestion, or drainage, dysphagia RESPIRATORY: s cough, sputum production, shortness of breath, CARDIAC: denies chest pain, palpitations, orthopnea, PND GASTROINTESTINAL: denies abdominal pain, nausea, vomiting, melena, GENITOURINARY: denies dysuria, urgency, frequency, heamaturia EXTREMITY: denies swelling MUSCULOSKELETAL: denies current joint pain or tenderness NEUROLOGIC: denies focal numbness, weakness, tingling HEMATOLOGIC: denies easy bruising and/or hemorrhage INTEGUMENT: denies rashes PSYCHIATRIC: denies suicidal or homicidal ideation Vital Signs Vital Signs Vital Signs: 04/29/24 10:13 04/29/24 10:18 04/29/24 10:26 Temperature 97.7 F L Temperature Source Axillary Pulse Rate 101 H Respiratory Rate 20 H Respiratory Effort Normal Non-Labored Blood Pressure 119/80 Blood Pressure Mean 93 Pulse Ox 94 Oxygen Delivery Method Nasal Cannula Nasal Cannula Nasal Cannula Oxygen Flow Rate (L/min) 5 5 5 Fraction of Inspired Oxygen (FIO2) 04/29/24 10:52 Temperature Temperature Source Pulse Rate 93 Respiratory Rate 16 Respiratory Effort Blood Pressure Blood Pressure Mean Pulse Ox 100 Oxygen Delivery Method Oxygen Flow Rate (L/min) Fraction of Inspired Oxygen (FIO2) 35 Weight Weight: 62.1 kg Body Mass Index (BMI) 24.2 Physical Exam Narrative GENERAL: Patient is somnolent but easily arousable HEENT: Trach collar in place EYES; Anicteric, Normal Conjunctiva NECK; supple, normal thyroid, RESPIRATORY: Diminished to auscultation CARDIOVASCULAR: Regular S1 S2, GI: soft, normoactive bowel sounds, : No Renal angle tenderness; EXTREMITIES: No edema, no clubbing, MUSCULOSKELETAL: no muscle wasting NEURO: Awake; no lateralizing signs. SKIN: No Rash PSYCH; Flat affect Results Lab / Micro Data 04/29/24 10:29 04/29/24 10:29 Labs: Laboratory Results - last 24 hr 04/29/24 10:29: WBC 7.6, RBC 3.50 L, Hgb 9.5 L, Hct 34.3 L, MCV 98.0, MCH 27.1, MCHC 27.7 L, RDW Std Deviation 53.1 H, RDW Coeff of Deonte 14.7 H, Plt Count 196, MPV 10.2, Immature Gran % (Auto) 0.800, Neut % (Auto) 64.8, Lymph % (Auto) 20.6, [place] % (Auto) 10.5 H, Eos % (Auto) 2.6, Baso % (Auto) 0.7, Absolute Neuts (auto) 5.0, Absolute Lymphs (auto) 1.57, Nucleated RBC % 0, Sodium 141, Potassium 4.3, Chloride 99, Carbon Dioxide > 45.0 H*, Anion Gap TNP, BUN 12, Creatinine 0.79, Estim Creat Clear Calc 54.90, Est GFR (MDRD) Af Amer 93, Est GFR (MDRD) Non-Af 77, BUN/Creatinine Ratio 15.2, Glucose 132 H, Calcium 9.2, Troponin I High Sens 26 04/29/24 10:40: Urine Color Yellow, Urine Clarity Clear, Urine pH 6.0, Ur Specific [place] 1.020, Urine Protein 100 H, Urine Glucose (UA) Normal, Urine Ketones Negative, Urine Occult Blood 50 H, Urine Nitrite Negative, Urine Bilirubin Negative, Urine Urobilinogen Normal, Ur Leukocyte Esterase Negative, Urine RBC 5-10 SEEN, Urine WBC 0-5 SEEN, Ur Squamous Epith Cells 0-5 SEEN, Urine Bacteria 2+, Hyaline Casts 10-25 SEEN, Urine Mucus 2+ ABG Data ABG results: ABG 04/29/24 10:32 Specimen Type GÉNESIS Sample Site Not entered VBG pH 7.24 L VBG pO2 47 H VBG HCO3 47 H VBG O2 Sat (Calc) 70 VBG Base Excess 20 H POC Mix VBG pCO2 Pt Tmp 109.4 H* O2 Delivery Device Not entered Crit Call To/Read Back Yes Blood Gas Notified Whom vickers Blood Gas Notified Time 10:34:50 Rhythm Strip Rhythm Strip: Sinus Rhythm Rate: 97 Ectopy: None Assessment & Plan Assessment/Plan (1) Acute hypoxic on chronic hypercapnic respiratory failure: PLAN: Plan Patient is a 68-year-old lady with history of chronic hypoxic respiratory failure with previous trach placement currently on BiPAP at home brought in with involuntary movement hypoxia and some lethargy 1. Acute metabolic encephalopathy ? Secondary to combination of acute hypoxia and hypercapnic respiratory failure. VBG demonstrated pH of 7.24 with pCO2 of 109.4. Patient was placed on vent her mentation did improve 2. Acute on chronic hypoxic and hypercapnic respiratory failure ? Secondary to noncompliance with BiPAP machine as well as mild COPD exacerbation. Patient was placed on the vent admitted to the intensive care unit consult placed to cephalometric technician for vent management 3. COPD with acute exacerbation ? Patient started on bronchodilator treatment, systemic steroid as well as antibiotic therapy. Patient placed on oxygen titrated to keep saturation greater than 90. 4.? Seizure disorder ? Patient is on Dilantin plan is to resume following home med reconciliation 5. Dyslipidemia ?Patient is on statin therapy, continued at home dose 6.? Acute cystitis with E. coli ? Patient completed appropriate antibiotic therapy 7.? Hypertension ? Blood pressure controlled, home medications continued with dose adjustment as needed 8.? History of hemorrhagic CVA ? MRI on admission did demonstrate right subdural fluid collection and bilateral posterior cerebral encephalomalacia..? Requested for PT OT eval 9.? Anemia - Secondary to chronic disorder monitoring H&H and transfuse if patient becomes symptomatic or hemoglobin falls below? 7.? CBC ordered for a.m. 10.? DVT prophylaxis ? SC Lovenox Time spent in the patient's overall evaluation,decision-making process, review of diagnostic data, adjustment of management, discussion with other providers, nursing nursing and ancillary staff involved in patient's care documentation, 75 minutes Advance planning; did discuss with the patient and family (patient's brother) regarding advanced directives as well as CODE STATUS. Did explain the various scenarios involved ( FULL CODE, DNR CCA, DNR CCA with no intubation, and DNR CC and what each meant) patient elected to remain full code. Order was placed. Time spent on discussion 16 minutes. Charges/Coding Multi Select Codes Visit Charges Visit Charges: 99897 Init Hosp Hospitalists' Procedures Procedures: 54341 Advncd Care Plan 30 Min
--- NOTE | 2024-04-29 11:49 | NURSING ---
ICU KITTOE RESP FAILURE, RESP ACIDOSIS, NON COMPLICANCE, VENT
--- OUTSIDE RECORDS SUMMARY | 2024-04-29 12:07 | XMS RPT_ITS | CCD ---
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 Name Role Phone HUGO MOONEY Unavailable Unavailable Joy Stahl Unavailable Unavailable Joy Stahl Unavailable Unavailable HUGO MOONEY Unavailable Unavailable HUGO MOONEY Unavailable Unavailable Joy Stahl Unavailable Unavailable PROVIDER, UNKNOWN Unavailable Unavailable Joy Stahl Unavailable Unavailable aCrlos Camargo Unavailable Unavailable DR JOY STAHL MD [...] Unavailable Maryam Franco MD Primary Care Provider Seth Chawla RPh Unavailable Geo KILPATRICK, Facundo Unavailable Unavailable VINCE GA Attending Unavailable VINCE GA Admitting Unavailable CARLTON OSBORN Consulting Unavailable MARYAM FRANCO Primary Care Unavailable Joy Stahl Primary Care Provider [phone] Miriam MENDES, Maryam Primary Care Provider URIEL MENDES, KAILEY Attending Unavailable LALIT MENDES, DR HAMILTON Primary Care Unavailab de FARIAS MD, DR COURTNEY MIKE Consulting Unavaillars SLOAN MD, JENNA Marino Consulting Unavailable Joy Sthal Primary Care Provider [phone] Maryam Franco MD Primary Care Provider NONE, PCP Referring Unavailable JACKIE JUDGE Consulting Unavailable PEPE MCCONNELL Attending Unavailable GANTA, MARYAM Primary Care Unavailable [...] guaiFENesin / Phenylephrine Drug Allergy 5 Intolerance [facility] Work Phone: (1 source) traMADol; Translations: [TRAMADOL] Drug Allergy [facility] Repository (20 sources) PHENYLEPHRINE-GUA IFENESIN; Translations: [PHENYLEPHRINE- AIFENESIN] Propensity to adverse reactions (disorder) 5 Intolerance [facility] Repository (20 sources) TETANUS VACCINES AND TOXOID; Translations: [TETANUS VACCINES AND TOXOID] Propensity to adverse reactions (disorder) 5 Swelling [facility] Repository (2 sources) tetanus toxoid vaccine, inactivated; Translations: [tetanus toxoid] Drug Allergy [facility] (disorder), Swelling (finding) [facility] (1 source) Tetanus immune globulin Drug Allergy [facility] (4 sources) Tetanus vaccine Propensity to adverse reactions 5 Swelling [facility] Medications Current Medications Medication Drug Class(es) [...] for pain for up to 7 days. [id number] 200 actuat albuterol 0.09 mg/actuat metered dose [...] (SOB), # 6.7 gram(s), 0 Refill(s), Pharmacy: [facility], 160, cm, 01/27/22 19:40:00 EDT, Height Start Date: 02/09/22 Status: Ordered Aluminum Hydroxide / Magnesium Hydroxide / Simethicone (1 source) Start: 02-10-20 Maalox Oral, q6h, PRN Indigestion, 0 Intake/Output Summary (Last 24 hours) at 02/11/2024 1030 Last data filed at 02/10/2024 1800 Gross per 24 hour Intake 200 ml Output -- Net 200 ml I/O last 3 completed shifts: In: 500 (8.5 mL/kg) [P.O.:500] Out: 600 (10.3 mL/kg) [Urine:600 (0.3 mL/kg/hr)] Weight: 58.5 kg Safety Concerns: {POONAM Safety Concerns:39115} Impairments/Disabilities: {POONAM Impairments/Disabilities:15089} Nutrition Therapy: Current Nutrition Therapy: {POONAM Diet List:51113} Routes of Feeding: {routes of feedin} Liquids: {liquid consistency:77483} Daily Fluid Restriction: {daily fluid restriction:73934} Last Modified Barium Swallow with Video (Video Swallowing Test): {done not done:03232} Treatments at the Time of Hospital Discharge: Respiratory Treatments: Oxygen Therapy: {Therapy; copd oxygen:61220} Ventilator: {POONAM Ventilator:75833} Rehab Therapies: {GEN THERAPY DISCIPLINE SCAL:6387791} Weight Bearing Status/Restrictions: {POD WEIGHT BEARIN} Other Medical Equipment (for information only, NOT a DME order): {Assistive Devices DME:33873} Other Treatments: Patient's personal belongings (please select all that are sent with patient): {POONAM Patient Belongings:45592} RN SIGNATURE: {E-signature:17164} CASE MANAGEMENT/SOCIAL WORK SECTION Inpatient Status Date: 01/28/24 Discharging to Facility/ Agency [facility] (if applicable) Name: Address: Dialysis Schedule: Phone: Fax: Cushion Builder/Parking Lot Supervisor signature: ICIAN SECTION Name: Luiza May Prognosis: {Rehab Prognosis:39795} Condition at Discharge: {Patient Condition:33839} Rehab Potential (if transferring to Rehab): {Rehab Prognosis:27519} Recommended Labs or Other Treatments After Discharge: The individual is being admitted to a nursing facility directly from an [facility] or a unit of a [facility] that is not operated by or licensed by [facility] under section 5119.14 or 5160-3-15.1 5 The individual requires the level of services provided by a nursing facility for the condition for which he or she was treated in the hospital and, Physician Certification: I certify the above information and transfer of Luiza May is necessary for the continuing treatment of the diagnosis listed and that she requires {POONAM Level of Care:57135} for {greater less than:20111} 30 days. Update Admission H&P: {POONAM Changes in H&P:04373} PHYSICIAN SIGNATURE: {E-signature:42037} documented in this encounter [facility] 02-10-2024 Note Referral placed to [facility] via [facility] per TCC request. Await review and response regarding ability to accept. TCC notified. [facility] 02-08-2024 Note Palliative Care, Blake atic, along with Critical Care procedure & progress notes transmitted to [facility]. Electronically signed by HUMAN RESOURCES ADMINISTRATOR Mabinty [facility] 02-07-2024 Note Referral placed to [facility] via [facility]port per TCC request. Await review and response regarding ability to accept. TCC notified. Electronically Signed by BEHZAD Reddy [facility] 02-07-2024 Note [facility] 02-07-2024 Procedure note Procedure: Tracheostomy replacement Original [...] Follow-up chest x-ray: ordered Assistants & Supervision: Clerical Coordinator(s): Adriano Marr MD Candle Making Supervisor: Adriano Marr MD The attending physician was [...] 10:55 AM 01/30/24 documented in this encounter [facility] 02-05-2024 Consult note Associated Order (s): IP CONSULT TO GERIATRICS [employer] Geriatric Medicine Inpatient Consult Service Admission Date: 01/28/2024 Admission Status: INPATIENT Chief Complaint: Chief Complaint Patient presents with Seizures Pt sent from [facility] for evaluation of seizures. Per transport, pt [...] & Plan Principal Problem: Status epilepticus (CMS/HCC) ([facility]) Cognitive Impairment --Mild to moderate deficits on [...] symptoms --Re[facility] [...] PEG on 10/04/2023 subsequently admitted 10/11 to [facility]. 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, but short term memory [...] years Advance Care Planning Healthcare Power of Shipping Clerk Packing: No Financial Power of Shipping Clerk Packing: No Living Will:No Code Status: Full Code [...] 5 mg, 5 mg, Oral, Daily, Mildred Villafuerte, DO sodium chloride 0.9% (NS) flush 5-40 mL, 5-40 mL, IntraCATHeter, q8h, Noreen Castro MD, 10 mL at 02/05/24 0923 sodium chloride 0.9% (NS) flush 5-40 mL, 5-40 mL, IntraVENous, PRN, Noreen Castro MD traZODone (Desyrel) tablet 50 mg, 50 mg, Oral, Nightly PRN, Estela Melendez Aris, DO, 50 mg at 02/04/24 210 Past Medical History: Diagnosis Date Asthma CAD (coronary artery disease) Cerebral artery occlusion with cerebral infarction (HCC) COPD (chronic obstructive pulmonary disease) (HCC) Hypertension Past Surgical History: Procedure Laterality Date APPENDECTOMY CHOLECYSTECTOMY COLONOSCOPY COLONOSCOPY CT CHEST ANGIOGRAM W AND/OR WO IV CONTRAST 07/26/2022 CT CHEST ANGIOGRAM W AND/OR WO IV CONTRAST 07/26/2022 [facility] IMAGING Social History Tobacco Use Smoking [...] 316 ms QTC Interval 447 ms P Hudgins 81 degrees QRS [place] 42 degrees T Wave Hudgins -55 degrees CA Interval 104 ms Lab Results Component Value Date TSH 1.148 01/29/2024 No components found for: B12 No results found for: VITD25 Reviewed: medication list, allergies, family history, social history, notes from last several encounters, lab results, imaging Follow-up: Follow up at [facility] in 4-6 weeks (Please note: [...] longer on AED at home -Currently on [facility] inpatient Altered mentation - likely 2/2 hypercarbia [...] anxiety, ETOH abuse, seizures who presented [facility] 01/28/2024 from home with concerns of hypoxia and had 2-3 seizures >5 minutes which prompted transfer to [facility]. Patient with trach (possible planning to [...] the note above. GALO Castrejon *Time-based code 13951 for 16-45 minutes. Add-on code 76319 at 46 minutes and each additional 30 [...] ANGIOGRAM W AND/OR WO IV CONTRAST 07/26/2022 [facility] CT IMAGING No family history on file. [...] alone after becoming frustrated about hospital stay Webster Symptom Assessment Score Webster Score Pain Score 0 Tiredness Score 3 [...] Assessed by: patient and provider. Social history: [place] status: no Marital status: Living status: with [...] loss Fluid Accumulation: No significant fluid accumulation Process Treater Strength: Not Performed Nutrition Assessment: Per chart: Pt with PMH including COPD/seizures and trach from recent admission to [facility], presented earlier today to [place] with possible seizure. Her family called EMS when the pt had a shaking episode. A+Ox2 per EMS on arrival and pt was brought to the ER. This was around 1000. The ER assessed and sent her home. Later in the day around 1400, the pt had another episode of shaking and was brought back again. At [place] ER, she has had a negative CTA [...] (kg): 59.8 kg Total Energy Requirements (kcals/day): 1372-3737 Weight Used for Protein Requirements: Admission (1.0-1.2 [...] Weight: 59.8 kg (131 lb 13.4 oz) ([facility] 01/27) Admission Body Weight: 59.8 kg (131 lb 13.4 oz) ([facility] 01/27) Usual Body Weight: (119# on 02/05/23, 133# on 05/24/23, 130# on 12/24/23) [place] Body Weight (lbs) (Calculated): 115 lbs [place] Body Weight (Kg) (Calculated): 52 kg % [place] Body Weight (Calculated): 114.6 % BMI (kg/m2) [...] to determine Ginny Reid RD, LD Contact: *[phone] or via Fididel chat Images from the original note were [...] 12 hours) Date/Time Action Medication Dose 01/28/24 8604 Given mupirocin (Bactroban) 2 % ointment 1 Application 1 Application 01/28/24 2219 New Bag cefepime (Maxipime) 2,000 mg in sodium chloride 0.9 % 50 mL IVPB Mini-Bag Plus 2,000 mg Assessment/Plan: Doses, serum creatinine, and vancomycin levels interfaced automatically to Chat& (ChatAnd) and data has been analyzed and interpreted. [...] COPD/seizures and trach from recent admission to [facility], presented earlier today to [place] with possible seizure. Her family called EMS when the pt had a shaking episode. A+Ox2 per EMS on arrival and pt was brought to the ER. This was around 1000. The ER assessed and sent her home. Later in the day around 1400, the pt had another episode of shaking and was brought back again. At [place] ER, she has had a negative CTA [...] ANGIOGRAM W AND/OR WO IV CONTRAST 07/26/2022 [facility] IMAGING No family history on file. [...] Resource Strain: Low Risk (10/13/2023) Received from [facility], [facility] Overall Financial Resource Strain (CARDIA) Difficulty of Paying Living Expenses: Not hard at all Food Insecurity: No Food Insecurity (10/13/2023) Received from [facility], [facility] Hunger Vital Sign Worried About Running Out of Food in the Last Year: Never true Ran Out of Food in the Last Year: Never true Transportation Needs: No Transportation Needs (08/09/2023) Received from [facility], [facility] PR[facility]AR - Transportation Lack of Transportation (Medical): No Lack of Transportation (Non-Medical): No Physical Activity: Unknown (07/26/2022) Exercise Vital Sign Days of Exercise per Week: Not on file Minutes of Exercise per Session: 20 min Stress: Stress Concern Present (10/14/2023) Received from [facility], [facility] [place] of Occupational Health - Occupational Stress Questionnaire Feeling of Stress : To some extent Social Connections: Moderately Isolated (10/13/2023) Received from [facility], [facility] Social Connection and Isolation Panel [NHANES] Frequency of Communication with Friends and Family: More than three times a week Frequency of Social Gatherings with Friends and Family: Twice a week Attends Nondenominational Services: Never Active Member of Clubs or [...] Per G Tube route daily. 10/13/23 11/12/23 Crysprieto Canseco, DO aspirin 81 MG chewable tablet 1 tablet (81 mg) by Per G Tube route daily. 10/13/23 10/12/24 Crys Ajith, DO atorvastatin (Lipitor) 40 MG tablet 1 tablet (40 mg) by Per G Tube route Nightly. 10/12/23 10/11/24 Crysprieto Canseco, DO budesonide (Pulmicort) 0.5 MG/2ML nebulizer solution Take 2 mL (0.5 mg) by nebulization in the morning. Rinse mouth with water after use to reduce aftertaste and incidence of candidiasis. Do not swallow.. 10/13/23 10/12/24 [facility] DO cholecalciferol (Vitamin D-3) 25 MCG (1000 UT) tablet 1 tablet (1,000 Units) by Per G Tube route daily. 10/13/23 10/12/24 Crysprieto Canseco, DO enoxaparin (Lovenox) 40 MG/0.4ML solution prefilled syringe Inject 0.4 mL (40 mg) under the skin every 24 hours. 10/13/23 [facility] escitalopram (Lexapro) 20 MG tablet 1 tablet (20 mg) by Per G Tube route daily. 10/13/23 01/11/24 [facility] folic acid (Folvite) 1 MG tablet 1 tablet (1 mg) by Per G Tube route in the morning. 10/13/23 10/12/24 [facility] furosemide (Lasix) 8 MG/ML solution 2.5 mL (20 mg) by Per G Tube route daily. 10/13/23 10/12/24 [facility] gabapentin (Neurontin) 300 MG/6ML solution 6 mL (300 mg) by Per G Tube route Nightly. 10/12/23 Crys Ajith, DO ipratropium-albuterol (Duo-Neb) 0.5-2.5 mg/3 mL nebulizer solution Take 3 mL by nebulization every 4 hours. 10/12/23 10/11/24 Crysprieto Canseco, DO levETIRAcetam (Keppra) 100 MG/ML solution 10 mL (1,000 mg) by Per G Tube route 2 times daily. 10/12/23 10/11/24 Crys Canseco, DO Propylene Glycol-Glycerin (Artificial tears) 1-0.3 % solution Administer 1 drop into both eyes 3 times daily as needed (dry eyes). 10/12/23 Crys Soire, DO QUEtiapine (SEROquel) 50 MG tablet 1 tablet (50 mg) by Per G Tube route Nightly. 10/12/23 Crysprieto Soire, DO rOPINIRole (Requip) 1 MG tablet 1 tablet (1 mg) by Per G Tube route Nightly. 10/12/23 Crysprieto Soire, DO Senna (Senokot) 8.8 MG/5ML syrup 10 mL by Per G Tube route 2 times daily. 10/12/23 Crys Canseco, DO Objective: Oxygen Delivery: O2 Flow Rate [...] Normal [] Scar/Lesion/Mass Inspection of teeth/lips/gums Dentition: [][place] Teeth []Dentures Lips/Gums: [x]Intact []Lesion Present Mucosa: [x][place] [x]Moist []Dry Neck: External Appearance Overall Appearance: [...] physicians, excluding procedures. documented in this encounter [facility] 01-30-2024 Note [employer] [facility] 01-29-2024 Note [facility] 01-28-2024 History and physical note See consult note dated today for H+P. documented in this encounter [facility] 01-28-2024 Note See consult note chance ed today for H+P. [facility] 01-28-2024 Emergency department Note EMERGENCY DEPARTMENT ENCOUNTER Pt Name: Luiza May Birthdate 1955 Date of evaluation: 01/28/2024 ED Provider: KATINA SOSA DO CHIEF COMPLAINT Chief Complaint Patient presents with Seizures Pt sent from [facility] for evaluation of seizures. Per transport, pt [...] complaining of seizures. Patient transferred here from [place] after she reportedly had 2 seizures lasting [...] ANGIOGRAM W AND/OR WO IV CONTRAST 07/26/[address]22 [facility] IMAGING CURRENT MEDICATIONS Previous Medications ARIPIPRAZOLE [...] Resource Strain: Low Risk (10/13/2023) Received from [facility], [facility] Overall Financial Resource Strain (CARDIA) Difficulty of Paying Living Expenses: Not hard at all Food Insecurity: No Food Insecurity (10/13/2023) Received from [facility], [facility] Hunger Vital Sign Worried About Running Out of Food in the Last Year: Never true Ran Out of Food in the Last Year: Never true Transportation Needs: No Transportation Needs (08/09/2023) Received from [facility], [facility] - Transportation Lack of Transportation (Medical): No Lack of Transportation (Non-Medical): No Physical Activity: Unknown (07/26/2022) Exercise Vital Sign Minutes of Exercise per Session: 20 min Stress: Stress Concern Present (10/14/2023) Received from [facility], [facility], [place] of Occupational Health - Occupational Stress Questionnaire Feeling of Stress : To some extent Social Connections: Moderately Isolated (10/13/2023) Received from [facility], [facility] Social Connection and Isolation Panel [NHANES] Frequency of Communication with Friends and Family: More than three times a week Frequency of Social Gatherings with Friends and Family: Twice a week Attends Nondenominational Services: Never Active Member of Clubs or [...] Response: Confused Best Motor Response: Follows commands [place] Coma Scale Score: 14 PHYSICAL EXAM ED Triage Vitals Temp Heart Rate Resp BP 01/28/240 01/28/24184901/28/24184901/28/241849 37.7 C (99.8 F) 101 26 110/53 [...] Diagnoses as of 01/28/242134 Status epilepticus (CMS/HCC) ([facility]) External records reviewed: Records from ED from which patient came Diagnostics interpreted by me: Xray(s) as above Discussions with other clinicians: Chief [employer] ICU Chronic conditions impacting care: Seizure disorder, [...] Procedures FINAL IMPRESSION 1. Status epilepticus (CMS/HCC) ([facility]) DISPOSITION Admit 01/28/2024 09:34:51 PM PATIENT REFERRED [...] bystanders following which she was taken to [facility]. Upon arrival there patient had another seizure. [...] 01/28/24234401/28/242024 Right arm 60 % Focused exam: Dhg-did-oqgabohag in no acute distress. Alert and oriented [...] positive Coronavirus (not SARS-CoV-2) result on the [employer] Pneumonia PCR Panel should be taken in the context of other clinical data as increased false positive detection has been noted by the applications programmer. Consider collecting a nasopharyngeal sample for the [...] words are mis-transcribed.) MD Em Mcdaniel MD 02/13/24103 documented in this encounter [facility] 01-27-2024 Note HNO ID: [id number] Author: JACKIE VALDEZ MA Service: ? Author Type: Scarfing Machine Operator Type: Progress Notes Filed: 01/27/2024 09:05 Note Text: POPULATION HEALTH NAVIGATION OUTREACH Action/FYI Letter received and sent to be mailed. Navigation Signature: Jackie Valdez Population Health Navigator January 27, 2024 9:05 AM [facility] 01-26-2024 Telephone encounter Note Patient notified of provider's instructions and refill sent to pharmacy. Patient verbalizes understanding. Patient will call back to schedule this at another date. Ginny Moreland RN [facility] 01-26-2024 Miscellaneous Notes Patient notified of [...] 2024 4:18 PM documented in this encounter [facility] 01-26-2024 Telephone encounter Note With her multiple falls resulting in injury, I would like her to see geriatrics. Refilled ambien at this time. Thank you Joan Johnson APRN.JAMES [facility] 01-25-2024 Telephone encounter Note The patient [...] Nobles RN January 25, 2024 4:18 PM [facility] 01-24-2024 Note HNO ID: [id number] Author: DARIEN BARNARD MA Service: ? Author Type: Scarfing Machine Operator Type: Progress Notes Filed: 01/24/2024 09:04 Note Text: POPULATION HEALTH NAVIGATION OUTREACH Action/FYI Patient is [facility] for below and needs appointment to [...] Barnard MA January 24, 2024 7:23 AM [facility] 01-24-2024 History of Present illness Narrative POPULATION HEALTH NAVIGATION OUTREACH Action/FYI Patient is on [facility] for below and needs appointment to address: Spirometry DTaP,Tdap,Td Vaccine(1 - Tdap) Shingrix Vaccine(1 of 2) RSV Vaccine(1 - 1-dose 60+ series) Mammogram Screening Covid-19 Vaccine() Advance Directive Discussion Behavioral Health Screening Hemoglobin [...] 2024 7:23 AM documented in this encounter [facility] 01-24-2024 Note Patient Outreach (NE TNAV) -------- LUIZA MAY ([id number]) 1955 F Date Time Provider Department 01/24/24 DARIEN BARNARD NETSIMÓNV During your visit today, we recorded the following information about you: Darien Barnard MA 01/24/2024 9:04 AM Signed POPULATION HEALTH NAVIGATION OUTREACH Action/FYI Patient is on [facility] CURRENT [employer] Workbench list for below and needs appointment to address: Spirometry DTaP,Tdap,Td Vaccine(1 - Tdap) Shingrix Vaccine(1 of 2) RSV Vaccine(1 - 1-dose 60+ series) Mammogram Screening Covid-19 Vaccine( - season) Advance Directive Discussion Behavioral Health Screening [...] Navigation Outreach [3910] Cmt: Arlet Ventura - [place] [facility] Prescriptions as of 01/27/2024 - zolpidem [...] by this patient by: PATIENT Seth Wally, formerly [facility] Problem List As Of Date 01/24/2024 Noted [...] 11/03/2022 01/03/2024 Seizure- (more content not included)... [facility] 01-21-2024 Telephone encounter Note [facility]oke with [facility] and patient did confirm with pharmacy that she is no longer taking phenytoin. [facility] 01-21-2024 Miscellaneous Notes Spoke with [facility] and patient did confirm with pharmacy that she is no longer taking phenytoin. Phone call to [facility] to inform that our records show pt not taking on 12/02/23. Pharmacy states they last delivered on 12/13/23. [facility] will call patient to confirm that she is not taking. [facility] will return call to our office to inform if patient taking or not. Joanie Barclay MA [facility] in [place] calling for a refill of Rx Phenytoin (not seen in current refill list). Any questions please call them at [phone] documented in this encounter [facility] 01-20-2024 Telephone encounter Note Maurice eDlgado nurse with [facility] called and is notified of providers results and instructions. Pt voices understanding. Rachel uRdd, FINESSE [facility] 01-20-2024 Miscellaneous Notes Maurice Delgado nurse with [facility] called and is notified of providers results and instructions. Pt voices understanding. Rachel Rudd, RN PCP agreeable to follow and sign. Thank you Joan Johnson APRN.JAMES Maurice Delgado nurse with [facility] calling to confirm that provider will continue to follow and sign orders for pt for halfway. Please call Maurice back after provider review and confirmation. documented in this encounter [facility] 01-20-2024 Telephone encounter Note PCP agreeable to follow and sign. Thank you Joan Johnson APRN.CNP [facility] 01-20-2024 Telephone encounter Note Maurice Delgado nurse with [facility] calling to confirm that provider will continue to follow and sign orders for pt for halfway. Please call Maurice back after provider review and confirmation. [facility] 01-19-2024 Telephone encounter Note Phone call to [facility]'s pharmacy to inform that our records show pt not taking on 12/02/23. Pharmacy states they last delivered on 12/13/23. [facility] will call patient to confirm that she is not taking. [facility] will return call to our office to inform if patient taking or not. Joanie Barclay MA [facility] 01-19-2024 Telephone encounter Note [facility]'s pharmacy in [place] calling for a refill of Rx Phenytoin (not seen in current refill list). Any questions please call them at [phone] [facility] 01-07-2024 Telephone encounter Note Called Ameena, patient's daughter. She stated she was able to get an appointment locally for trach decannulation. She defers appointment with our IP team at [facility] at this time. Ameena was thankful for the call back and will call our office if there any any issues or questions. Adriane Riley APRN.CNP January 07, 2024 3:20 PM [facility] 01-07-2024 Miscellaneous Notes Called Ameena, patient's daughter. She stated she was able to get an appointment locally for trach decannulation. She defers appointment with our IP team at [facility] at this time. Ameena was thankful for [...] her trach removed. documented in this encounter [facility] 01-05-2024 Telephone encounter Note Luiza's daughter [...] he has referred her to ENT and [facility], which we are not able to schedule with. She voiced understanding. Additional message sent to the pulmonary department. Patsy Sagastume RN [facility] 01-05-2024 Miscellaneous Notes Luiza's daughter called [...] he has referred her to ENT and [facility], which we are not able to [...] pts daughter, Ameena. documented in this encounter [facility] 01-05-2024 Telephone encounter Note Luiza's daughter [...] Sagastume RN January 05, 2024 11:45 AM T [facility] 01-05-2024 Telephone encounter Note Pts daughter [...] removed them. Please advise pts daughter, Ameena. [facility] Work Phone: 01-04-2024 Telephone encounter Note Pt [...] agreeable to do so and transferred to radiology scheduler. Pt to see [facility] as advised by provider yesterday, as well. Gisell Schumacher RN T [facility] 01-04-2024 Miscellaneous Notes Pt was seen [...] agreeable to do so and transferred to radiology scheduler. Pt to see [facility] as advised by provider yesterday, as well. Gisell Schumacher RN documented in this encounter [facility] 01-04-2024 Telephone encounter Note Patient called and self referring. She is looking to have her trach removed. [facility] 01-03-2024 Note HNO ID: [id number] Author: ISSA HERMAN MD Service: ? Author Type: Physician Type: Progress Notes Filed: 01/03/2024 15:05 Note Text: This note was created using [employer]riter. Subjective Luiza May is a 68 year old female. PCP Maryam Franco MD. She was here with her significant other. She initially stated she had not been to ENT, but partner indicated they were there a few weeks ago. Tracheostomy was not removed, reason was not clear. She was supposed to see her [facility], but was unable to schedule, possibly [...] (HCC) - ICD9: 496, ICD10: J44.9 See [facility]. They may need to address #1. Issa Herman MD [facility] 01-03-2024 History of Present illness Narrative This note was created using [employer]riter. Subjective Luiza May is a 68 year old female. PCP Maryam Franco MD. She was here with her significant other. She initially stated she had not been to ENT, but partner indicated they were there a few weeks ago. Tracheostomy was not removed, reason was not clear. She was supposed to see her [facility], but was unable to schedule, possibly [...] (HCC) - ICD9: 496, ICD10: J44.9 See [facility]. They may need to address #1. Issa Herman MD documented in this encounter [facility] 12-30-2023 Telephone encounter Note Prescription sent as requested. Joan Johnson APRN.CNP PDMP website checked and validated. All prescriptions have been APPROPRIATELY filled. No suspicious activity was identified. 12/30/2023 by Joan Johnson APRN.CNP [facility] 12-30-2023 Miscellaneous Notes Prescription sent as requested. Joan Johnson APRN.CNP PDMP website checked and validated. All prescriptions have been APPROPRIATELY filled. No suspicious activity was identified. 12/30/2023 by Joan Johnson APRN.CNP Pharmacy notified and prescription cancelled. Tried calling Pharmacy, closed for lunch. Will try back after 1 Please call [place] [facility] to cancel already sent prescription prior to [facility]. Thank you Joan Johnson APRN.CNP Pended Rx to correct Pharmacy. Update pt once sent. Lorrie Allen MA Patient's Ambien Rx was sent to [place] pharmacy with a fill date of 01/01/24. Patient wants to know if it can be switched to [facility] in [place]. documented in this encounter [facility] 12-30-2023 Telephone encounter Note Pharmacy notified and prescription cancelled. [facility] 12-30-2023 Telephone encounter Note Tried calling Pharmacy, closed for lunch. Will try back after 1 [facility] 12-30-2023 Telephone encounter Note Please call [place] [facility] to cancel already sent prescription prior to me [facility]. Thank you Joan Johnson APRN.JAMES [facility] 12-30-2023 Telephone encounter Note Pended Rx to correct Pharmacy. Update pt once sent. Lorrie Allen MA [facility] 12-30-2023 Telephone encounter Note Patient's Ambien Rx was sent to [place] pharmacy with a fill date of 01/01/24. Patient wants to know if it can be switched to [facility] in [place]. [facility] 12-30-2023 Telephone encounter Note Prescription Refill Information [...] Norton LPN December 30, 2023 7:54 AM [facility] 12-30-2023 Miscellaneous Notes Prescription Refill Information The [...] 2023 6:22 PM documented in this encounter [facility] 12-29-2023 Telephone encounter Note Prescription Refill [...] Izabela Charles December 29, 2023 6:22 PM [facility] 12-27-2023 Telephone encounter Note PDMP website checked and validated. All prescriptions have been APPROPRIATELY filled. No suspicious activity was identified. 12/27/2023 by Joan Johnson APRN.JAMES [facility] 12-27-2023 Miscellaneous Notes PDMP website checked [...] 2023 2:48 PM documented in this encounter [facility] 12-24-2023 Note HNO ID: [id number] Author: DEX HDZ MD Service: ? Author Type: Physician Type: Progress Notes Filed: 12/24/2023 17:02 Note Text: FOLLOW UP VISIT - PEG TUBE REMOVAL NAME: Luiza Brown [facility] NO.: [id number] DATE OF SERVICE: 12/24/2023 : 1955 REFERRING [...] balloon currently deflated. This was placed at [facility]. She has an appointment with pulmonary at [facility] on January 12 she tells me. Luiza [...] (primary encounter diagnosis) (Z93.1) Gastrostomy in place ([facility]) This note was forwarded to DR. Herman Return to Clinic: The patient is instructed to follow-up with me as needed. Dex Hdz MD [facility] 12-24-2023 History of Present illness Narrative FOLLOW UP VISIT - PEG TUBE REMOVAL NAME: Luiza Brown [facility] NO.: [id number] DATE OF SERVICE: 12/24/2023 : 1955 REFERRING [...] balloon currently deflated. This was placed at [facility]. She has an appointment with pulmonary at [facility] on January 12 she tells me. Luiza [...] (primary encounter diagnosis) (Z93.1) Gastrostomy in place ([facility]) This note was forwarded to DR. Herman Return to Clinic: The patient is instructed to follow-up with me as needed. Dex Hdz MD documented in this encounter [facility] 12-24-2023 Telephone encounter Note Prescription Refill [...] Norton LPN December 24, 2023 3:31 PM [facility] 12-24-2023 Nurse Note REVIEW OF SYSTEMS: [...] Unknown Last Colonoscopy: 2016 Patsy Sagastume RN [facility] 12-24-2023 Nurse Note REVIEW OF SYSTEMS: [...] Patsy Sagastume RN documented in this encounter [facility] 12-24-2023 Telephone encounter Note Prescription Refill [...] Jackie Magaña December 24, 2023 2:48 PM [facility] 12-21-2023 Telephone encounter Note Maurice notified. [facility] 12-21-2023 Miscellaneous Notes Maurice notified. Okay for nystatin powder with dressing changes Lise Major APRN.CNP Maurice from [facility] calling halfway visits will remain 2 times weekly for 6 weeks. Trying to educate patient to keep dressing around her G-tube. Area surrounding G-tube is red and irritated, nursing is using nystatin powder with dressing changes, if that is alright with the provider? Aware patient has General Surgery appt on Wednesday12/24/2023. Please advise documented in this encounter [facility] 12-21-2023 Telephone encounter Note Okay for nystatin powder with dressing changes Lise Major APRN.JAMES [facility] Work Phone: 12-21-2023 Telephone encounter Note Maurice from [facility] calling halfway visits will remain 2 times weekly for 6 weeks. Trying to educate patient to keep dressing around her G-tube. Area surrounding G-tube is red and irritated, nursing is using nystatin powder with dressing changes, if that is alright with the provider? Aware patient has General Surgery appt on Wednesday12/24/2023. Please advise [facility] 12-17-2023 Telephone encounter Note Requested Prescriptions Refused Prescriptions Disp Refills zolpidem (AMBIEN) 10 mg 30 tablet 0 Sig: Take 1 tablet by mouth at bedtime as needed (insomnia) for up to 30 days. Refused By: ISSA HERMAN Reason for Refusal: Patient needs appointment Issa Herman MD [facility] 12-17-2023 Miscellaneous Notes Requested Prescriptions Refused [...] 2023 2:49 PM documented in this encounter [facility] 12-17-2023 Telephone encounter Note The patient [...] Meyers RN December 17, 2023 2:49 PM [facility] 12-16-2023 Note HNO ID: [id number] Author: GAGAN SCHUSTER RN Service: ? Author [...] with a significant other and does receive [facility] Patient seen in ED: Out of Network ED Contact made with Patient: Yes The patient was identified by Name and Date of . Discussed Care with: daughter Patient was seen in the Emergency Department (ED) Location: [place] ER Date: 12/13/23 Reason for ED Visit: Concern for trach infection/per daughter pt was hallucinating Had not been wearing her bipap that night ED Intervention: trach culture sent Given rx for Bactrim Based on division manager, the following disposition is advised: No symptoms or symptoms present, not severe. Routed to: No Action Needed NIKA Education Provided this Outreach: No Gagan Schuster RN December 16, 2023 12:19 PM [facility] 12-16-2023 History of Present illness Narrative ED [...] with a significant other and does receive [facility] Patient seen in ED: Out of Network ED Contact made with Patient: Yes The patient was identified by Name and Date of . Discussed Care with: daughter Patient was seen in the Emergency Department (ED) Location: [facility] Date: 12/13/23 Reason for ED Visit: Concern for trach infection/per daughter pt was hallucinating Had not been wearing her bipap that night ED Intervention: trach culture sent Given rx for Bactrim Based on division manager, the following disposition is advised: No symptoms or symptoms present, not severe. Routed to: No Action Needed NIKA Education Provided this Outreach: No Gagan Schuster RN December 16, 2023 12:19 PM documented in this encounter [facility] 12-16-2023 Note Patient Outreach (AM [facility]) -------- LUIZA MAY ([id number]) 1955 F Date Time Provider Department 12/16/23 GAGAN SCHUSTER During your visit today, we [...] seen in the Emergency Department (ED) Location: [place] ER Date: 12/13/23 Reason for ED Visit: Concern for trach infection/per daughter pt was hallucinating Had not been wearing her bipap that night ED Intervention: trach culture sent Given rx for Bactrim Based on division manager, the following disposition is advised: No symptoms [...] managed by this patient by: PATIENT Seth Chawal formerly [facility] Problem List As Of Date 12/16/2023 Noted [...] 08/10/2023 Hypomagnesemia [E83.42 (more content not included)... [facility] 12-15-2023 Telephone encounter Note Spoke with pt and she has not picked up the 30 day supply from 12-02-23 per pt. Pt will check with the pharmacy. Nava Connell LPN [facility] 12-15-2023 Miscellaneous Notes Spoke with pt [...] Jackie Evans Pss. documented in this encounter [facility] 12-14-2023 Telephone encounter Note TC no answer. Left VM to return call. WIL Meyer [facility] 12-13-2023 Telephone encounter Note Attempted to contact Ag Rhoades, nurse with [facility] but no answer. Left message to call [...] us know if follow up is needed. [facility] 12-13-2023 Miscellaneous Notes Attempted to contact Ag Rhoades, nurse with [facility] but no answer. Left message to call [...] know if follow up is needed. Check [facility] hospital records to see if needing PCP visit in addition to general surgery. Ag Rhoades, nurse with [facility] calling with update that patient went to [facility] ER on 12/06/23. Patient to follow up with General Surgery. Pt has appt with General Surgery on 12/24/23. Please contact patient if follow-up with PCP is advised, as well. Gisell Schumacher RN documented in this encounter [facility] 12-13-2023 Telephone encounter Note She filled a 30 day supply on 12/02/[address] Cheatham, should not need a refill today. Why requesting? [facility] 12-13-2023 Telephone encounter Note See other note regarding this patient today, can address in other phone encounter. [facility] 12-13-2023 Miscellaneous Notes See other note regarding this patient today, can address in other phone encounter. MARYA: Radha with [facility] calls to report she had pt squaded to [facility]. Radha reports pt showed signs of infection in G-tube and trach. Pt was hallucinating. Bhavana Garza LPN documented in this encounter [facility] 12-13-2023 Telephone encounter Note Check [facility] hospital records to see if needing PCP visit in addition to general surgery. [facility] 12-13-2023 Telephone encounter Note FYI: Radha with [facility] calls to report she had pt squaded to [facility]. Radha reports pt showed signs of infection in G-tube and trach. Pt was hallucinating. Bhavana Garza LPN [facility] 12-13-2023 Telephone encounter Note Ag Rhoades, nurse with [facility] calling with update that patient went to [facility] ER on 12/06/23. Patient to follow up with General Surgery. Pt has appt with General Surgery on 12/24/23. Please contact patient if follow-up with PCP is advised, as well. Gisell Schumacher RN [facility] 12-10-2023 History of Present illness Narrative [...] seen in the Emergency Department (ED) Location: [facility] Date: 12/06/23 Reason for ED Visit: wellness vs ED Intervention: Chest x ray done per daughter pt recently d/c from [facility] [place] has her trach and peg Per daughter pt receiving c from [facility] for SN Is currently eating Cpap@ nite Per daughter,plan is to discontinue peg and trach soon Discussed f/u with pcp Based on division manager, the following disposition is advised: No symptoms or symptoms present, not severe. Routed to: No Action Needed NIKA Education Provided this Outreach: Melanie Schuster RN December 10, 2023 1:58 PM documented in this encounter [facility] 12-10-2023 Note HNO ID: [id number] Author: GAGAN SCHUSTER RN Service: ? Author [...] seen in the Emergency Department (ED) Location: [facility] Date: 12/06/23 Reason for ED Visit: wellness vs ED Intervention: Chest x ray done per daughter pt recently d/c from [facility] Still has her trach and peg Per daughter pt receiving hhc from [facility] for SN Is currently eating Cpap@ nite Per daughter,plan is to discontinue peg and trach soon Discussed f/u with pcp Based on division manager, the following disposition is advised: No symptoms or symptoms present, not severe. Routed to: No Action Needed NIKA Education Provided this Outreach: No Gagan Schuster RN December 10, 2023 1:58 PM [facility] 12-10-2023 Note Patient Outreach (AM [facility] -------- LUIZA MAY ([id number]) 1955 F Date Time Provider Department 12/10/23 GAGAN SCHUSTER During your visit today, we [...] trach and peg Per daughter pt receiving [facility] from [facility] for SN Is currently eating Cpap@ nite Per daughter,plan is to discontinue peg and trach soon Discussed f/u with pcp Based on division manager, the following disposition is advised: No symptoms [...] Assessed Reason for Visit: ACM DONOVAN RN [[id number]] Cmt: ER vs [facility] on 12/06/23 Prescriptions [...] by this patient by: PATIENT Seth Chawla, formerly [facility] Problem List As Of Date 12/10/2023 Noted [...] 08/10/2023 Hypokalemia [E (more content not included)... [facility] 12-09-2023 Telephone encounter Note Patient has been [...] found Please advise. Thank you. Jackie Magaña. [facility] 12-07-2023 Telephone encounter Note Patient was seen in office 12/01 and refill of Ambien given at that time. Closing this encounter. WIL Meyer [facility] 12-07-2023 Miscellaneous Notes Patient was seen [...] by a provider. Thank you Joan Johnson APRN.JAMES Patient has been identified by name and [...] you. May Menchaca. documented in this encounter [facility] 12-06-2023 Telephone encounter Note Called back to [facility]. Pt has appt with gen surg 12/24/23. No f/u that we can tell here for pulmonary. [facility] 12-06-2023 Miscellaneous Notes Called back to [facility]. Pt has appt with gen surg 12/24/23. No f/u that we can tell here for pulmonary. Okay Home Health orders, pending follow up with PCP team. 1)[facility] calling because they need verbal orders to see pt for nursing and they need verbal orders today or they will have to drop her. 2)need verbal orders or faxed orders [phone] for Trach size & G-tube care, water and flushes. See message below for all that is needed and other information. Routing to Dr. Herman who saw pt last. Provider/team is unavailable. Nava Connell LPN Will Joan follow? Schedule follow up with Joan Elizabeth. She can sign orders for PCP. I saw patient for referrals to have tubes removed and she has been referred. Nemo KILPATRICK with [facility] and reports they opened HH orders [...] She reports when Pt was discharged from [facility] she had been getting her [...] her outside medication list on 11/11/23 from [facility], but it is solution for the g-tube Sending updated medication list to fax # [phone]. documented in this encounter [facility] 12-06-2023 Telephone encounter Note Okay Home Health orders, pending follow up with PCP team. [facility] 12-06-2023 Telephone encounter Note 1)[facility] calling because they need verbal orders to see pt for nursing and they need verbal orders today or they will have to drop her. 2)need verbal orders or faxed orders [phone] for Trach size & G-tube care, water and flushes. See message below for all that is needed and other information. Routing to Dr. Herman who saw pt last. Provider/team is unavailable. Nava Connell LPN [facility] 12-03-2023 Telephone encounter Note Will Joan follow? [facility] 12-03-2023 Telephone encounter Note Schedule follow up with Joan Johnson. She can sign orders for PCP. I saw patient for referrals to have tubes removed and she has been referred. [facility] 12-03-2023 Telephone encounter Note Nemo RN with [facility] and reports they opened HH orders [...] She reports when Pt was discharged from [facility] she had been getting her [...] her outside medication list on 11/11/23 from [facility], but it is solution for the g-tube Sending updated medication list to fax # [phone]. [facility] 12-03-2023 Telephone encounter Note [facility] calling with questions regarding pt's medications. Questions answered. Gisell Schumacher RN [facility] 12-03-2023 Miscellaneous Notes [facility] calling with questions regarding pt's medications. Questions answered. Gisell Schumacher RN documented in this encounter [facility] 12-02-2023 Note HNO ID: [id number] Author: ISSA HERMAN MD Service: ? Author Type: Physician Type: Progress Notes Filed: 12/02/2023 15:09 Note Text: This note was created using [employer]. Subjective Patient presents with: Recheck: [facility] discharge, trach and GI tube, want them removed PCP Maryam Franco MD Luiza May is a 68 year old female here with her brother. History was complicated with admissions in [facility], [place], and recent discharge from [facility] (November 24). Discharge records from [facility] were not on file. Medications were reviewed with the patient. She mainly needed tracheostomy and G-tube removed. She reported eating regular food, and passing her swallowing tests. She was taking her medications orally. She reported dilantin was discontinued in the intermediate. She had her medications other than Ambien. She requested pain medication for the G tube. She was not on medication for abdominal pain in the intermediate. I explained I am not starting any [...] distress. Breath s (more content not included)... [facility] 12-02-2023 History of Present illness Narrative This note was created using [employer]. Subjective Patient presents with: Recheck: [facility] discharge, trach and GI tube, want them removed PCP Maryam Franco MD Luiza May is a 68 year old female here with her brother. History was complicated with admissions in [place], [facility], [place], and recent discharge from [facility] (November 24). Discharge records from [facility] were not on file. Medications were reviewed with the patient. She mainly needed tracheostomy and G-tube removed. She reported eating regular food, and passing her swallowing tests. She was taking her medications orally. She reported dilantin was discontinued in the intermediate. She had her medications other than Ambien. She requested pain medication for the G tube. She was not on medication for abdominal pain in the intermediate. I explained I am not starting any [...] Issa Herman MD documented in this encounter [facility] 11-27-2023 Telephone encounter Note attempted to reach pt by phone without success. tried moblolie and home ph one and get a different person not pt. Tried daughter mobile phone and mailbox is full. Try pt later. Nava Connell LPN\ [facility] 11-26-2023 Telephone encounter Note Patient has been in hospital 4 times in the last 2 months for breathing issues, seizures, and various other problems. NO ambien until seen by a provider. Thank you Joan Johnson APRN.TELETYPESETTER [facility] 11-26-2023 Telephone encounter Note Patient has [...] Please advise. Thank you. Irena Norton LPN. [facility] 11-26-2023 Telephone encounter Note Patient has [...] Please advise. Thank you. Xiomara Abad LPN. [facility] 11-26-2023 Miscellaneous Notes Patient has been [...] that is . documented in this encounter [facility] 11-26-2023 Telephone encounter Note Patient has been [...] 12/06/2023 Please advise. Thank you. May Menchaca. [facility] 11-26-2023 Telephone encounter Note [facility] asking for medication that is . [facility] 11-23-2023 Note HNO ID: [id number] Author: ROSALVA STODDARD MA Service: ? Author Type: Scarfing Machine Operator Type: Progress Notes Filed: 11/23/2023 09:36 Note Text: POPULATION HEALTH NAVIGATION OUTREACH Action/FYI Contacted patient to schedule [place] Annual Wellness Visit, care gaps and HCCs due. 1st attempt: Left message with my direct number 2nd attempt: Home number not in service Reason for Outreach Care Gap/HCC or Scheduling Wellness Visits Care Gaps due: Medicare Annual Wellness Visit Breast Cancer Screening Patient Contacted: Unable or unnecessary to reach patient: Left message Relatient message sent HCC related Navigation Signature: Rosalva Stoddard MA November 23, 2023 9:35 AM [facility] 11-23-2023 History of Present illness Narrative POPULATION HEALTH NAVIGATION OUTREACH Action/FYI Contacted patient to schedule [place] Annual Wellness Visit, care gaps and HCCs due. 1st attempt: Left message with my direct number 2nd attempt: Home number not in service Reason for Outreach Care Gap/HCC or Scheduling Wellness Visits Care Gaps due: Medicare Annual Wellness Visit Breast Cancer Screening Patient Contacted: Unable or unnecessary to reach patient: Left message Relatient message sent HCC related Navigation Signature: Rosalva Stoddard MA November 23, 2023 9:35 AM documented in this encounter [facility] 11-23-2023 Note Patient Outreach (NE TNAV) -------- LUIZA MAY ([id number]) 1955 F Date Time Provider Department 11/23/23 ROSALVA STODDARD During your visit today, we recorded the following information about you: Rosalva Stoddard MA 11/23/2023 9:36 AM Signed POPULATION HEALTH NAVIGATION OUTREACH Action/FYI Contacted patient to schedule [place] Annual Wellness Visit, care gaps and HCCs due. 1st attempt: Left message with my direct number 2nd attempt: Home number not in service Reason for Outreach Care Gap/HCC or Scheduling Wellness Visits Care Gaps due: Medicare Annual Wellness Visit Breast Cancer Screening Patient Contacted: Unable or unnecessary to reach patient: Left message Relatient message sent HCC related Navigation Signature: Rosalva Stoddard MA November 23, 2023 9:35 AM Allergies As of Date: 11/23/2023 Noted Allergy Reaction ENTEX (PHENYLEPHRINE-GUAIFENESIN) 04/22/2005 5 - Intolerance TETANUS VACCINES AND TOXOID 04/22/2005 7 - Swelling Date Reviewed: 09/23/2023 Reviewed by: Lorraine Clement OCCA - Fully Assessed Reason for Visit: Population Health Navigation Outreach [3910] Cmt: [place] AWV/HCC and care gaps Prescriptions as of [...] by this patient by: PATIENT Seth Chawla formerly [facility] Problem List As Of Date 11/23/2023 Noted [...] Encounter Status:Closed by ROSALVA STODDARD on 11/23/23 [facility] 11-02-2023 Telephone encounter Note Patient has been [...] Please advise. Thank you. Lisette Corona LPN. [facility] 11-02-2023 Miscellaneous Notes Patient has been [...] Lisette Corona LPN. documented in this encounter [facility] 10-19-2023 Note . MICRO - Microbiology [...] Locations *1: This test was performed at: [facility], [address] [place] [address], [id number] , [facility] ([place]) 10-12-2023 Note [facility] 10-12-2023 Hospital course Narrative Images from the [...] She was transferred to the ICU at [facility]. Her stay was complicated by extubation [...] Judgment: Judgment normal. LABS: Recent Labs 10/10/23 01110/11/2335610/12/23438 NA 142 143 142 K 3.7 3.5 [...] Complexity: follow up within 7-14 calendar days (86822) [x] Severe Complexity: follow up within 7 calendar days (70960) Follow up Testing, Pending results or Referrals [...] Crys Canseco DO Division of Hospitalist Medicine [facility] 10/12/2023, 3:29 PM documented in this encounter [facility] 10-12-2023 History of Present illness Narrative [...] original note were not included. OCCUPATIONAL THERAPY [facility] Treatment Note Name/MRN: Luiza May ([id number]) Date of : 1955 Age: 67 y.o. Room/Bed: [facility] A Discharge Recommendation: IP Rehab Equipment Needed: [...] in accordance with facility standards. Fall Risk: Radha Fall Risk Score: 70 (High Risk) Family/Caregiver [...] Changes: 67-year-old female who was transferred from [facility] for acute on chronic hypoxemic and hypercapnic [...] from the original note were not included. [facility] Progress Note Luiza May [...] Seizure disorder on Dilantin was sent to [facility] from [facility] for management of Encephalopathy secondary to Acute [...] ANGIOGRAM W AND/OR WO IV CONTRAST 07/26/2022 [facility] IMAGING FAMILY HISTORY No family history [...] bodily fluids) - Apply ET mix. Leave HAND SLITTER. Apply TID and PRN. -q2hr/PRN turns Reposition q2hrs Incontinent check q2hrs Waffle cushion to chair Nutritional support Wound Care to follow Recommend to follow up at [facility] wound care center after hospital discharge. [...] Admit Date: 09/26/2023 PCP: Joy Stahl Room#: [id number] A BRIEF HOSPITAL COURSE: Mrs May is a 67yoF with hx of COPD on 4L baseline, TIO with CPAP, HFpEF, prior SDH 01/08/22 following a fall, prior MCA stroke with residual dysphagia, seizures, prior DVT- no OAC, HTN, HPL, Crest, anxiety, depression, alcohol abuse, and recent admit at [facility] after fall 08/05/23 with parafalcine SDH whom presented to [facility] on 09/25 with recurrent seizures and hypercapnia. Loaded with keppra and redosed with dilantin for seizures. She did not respond to use of NIV for hypercapnia (pH 7.1) and was intubated at [place]. Transferred to ICU at [facility]. Her ICU stay complicated by MSSA [...] infarction (HCC) COPD (chronic obstructive pulmonary disease) ([facility]) Hypertension LABS: CBC: Recent Labs 10/09/2342310/10/23 0112 10/11/23 035 WBC 10.7 9.5 11.2* RBC 2.84* 2.47* 2.47* HGB 8.3* 7.3* 7.2* HCT 26.8* 23.1* 23.4* MCV 94.4 93.5 94.7 RDW 15.4* 15.1* 14.8 PLT 288 273 270 BMP: Recent Labs 10/09/2342310/10/23 0112 10/11/23 035 NA 145 142 143 K 4.2 3.7 [...] TBD - Location - [facility] in [place] - Pending the following - pending appeal Total time spent (which include face to face and non face to face encounters) : 38 minutes Extended Emergency Contact Information Primary Emergency Contact: AMEENA MAY Mobile Relation: Daughter Secondary Emergency Contact: Gene Mills Mobile Relation: Son Preferred language: Salvadorean Powder Nipper needed? No Christophe Irwin DO Division of Hospitalist Medicine [facility] Nutrition Assessment Type and Reason for [...] (temporalis), Hand (interosseous) Fluid Accumulation: Mild Extremities Process Treater Strength: Not Performed Nutrition Assessment: 67yo F with PMHx COPD on 4L baseline, TIO with CPAP, HFpEF, prior SDH 01/08/22 following a fall, prior MCA stroke with residual dysphagia, seizures, prior DVT- no OAC, HTN, HPL, Crest, anxiety, depression, alcohol abuse, and recent admit at [facility] after fall 08/05/23 with parafalcine SDH whom presented to [facility] on 09/25 with recurrent seizures and hypercapnia. Loaded with keppra and redosed with dilantin for seizures. She did not respond to use of NIV for hypercapnia (pH 7.1) and was intubated at [place]. Transferred to ICU at [facility]. Her ICU stay complicated by MSSA [...] mL/hr. Pt reports a UBW of 125# DIRECTOR OF PHYSIOTHERAPY SERVICES. Her weights continue to be above her UBW (had weights of 140# DIRECTOR OF PHYSIOTHERAPY SERVICES on 08/17 and 09/22) and her weights here have ranged from 150# to 170#. Estimated Daily Nutrient Needs: Energy Requirements Based On: Kcal/kg Weight Used for Energy Requirements: [place] Weight for Energy Calculation (kg): 50 kg Total Energy Requirements (kcals/day): 25-30 kcals/kg = 0765-5934 kcals/day Weight Used for Protein Requirements: [place] Weight in Kg Used for Protein Requirements: [...] 10/16/22 119#) % Weight Change (Calculated): 25.2 [place] Body Weight (lbs) (Calculated): 110 lbs [place] Body Weight (Kg) (Calculated): 50 kg % [place] Body Weight (Calculated): 142.3 % BMI (kg/m2) [...] Planning: Enteral Nutrition Joanie Lopez RD Contact: *[phone] 10/11/23 0849 Patient Parameters Ventilator On Yes [...] Changes: 67-year-old female who was transferred from [facility] for acute on chronic hypoxemic and hypercapnic respiratory failure related to seizures requiring intubation, has been treated for MSSA pneumonia but failed multiple extubation, now s/p trach/PEG/07/28. Reported feeling well this morning. Denied any shortness of breath, cough, secretions, fevers, chills. Stated that she follows with pulmonary In [place], has asthma and COPD, on Symbicort and [...] Admit Date: 09/26/2023 PCP: Joy Stahl Room#: [id number] A BRIEF HOSPITAL COURSE: Mrs May is a 67yoF with hx of COPD on 4L baseline, TIO with CPAP, HFpEF, prior SDH 01/08/22 following a fall, prior MCA stroke with residual dysphagia, seizures, prior DVT- no OAC, HTN, HPL, Crest, anxiety, depression, alcohol abuse, and recent admit at [facility] after fall 08/05/23 with parafalcine SDH whom presented to [facility] on 09/25 with recurrent seizures and hypercapnia. Loaded with keppra and redosed with dilantin for seizures. She did not respond to use of NIV for hypercapnia (pH 7.1) and was intubated at [place]. Transferred to ICU at [facility]. Her ICU stay complicated by MSSA [...] disease) (HCC) Hypertension LABS: CBC: Recent Labs 10/08/232 10/09/2342310/10/23 0112 WBC 9.2 10.7 9.5 RBC 2.59* 2.84* 2.47* HGB 7.6* 8.3* 7.3* HCT 24.4* 26.8* 23.1* MCV 94.2 94.4 93.5 RDW 15.1* 15.4* 15.1* PLT 244 288 273 BMP: Recent Labs 10/08/2320110/09/2342310/10/23111 NA 143 145 142 K 3.3* 4.2 [...] TBD - Location - [facility] in [place] - Pending the following - pending appeal Total time spent (which include face to face and non face to face encounters) : 38 minutes Extended Emergency Contact Information Primary Emergency Contact: AMEENA MAY Mobile Relation: Daughter Secondary Emergency Contact: Kendra Millsck Mobile Relation: Son Preferred language: Salvadorean Powder Nipper needed? No Christophe Irwin DO Division of Hospitalist Medicine [employer] Images from the original note were not included. [facility] Pulmonary Medicine [address] [place] [address] Patient - Luiza May, Age - 67 y.o. - 1955 Room Number - [id number]/[facility]734 A Consulting - Christophe Irwin DO Primary Care Physician - Joy Stahl Date of Admission - 09/26/2023 2:17 PM Hospital Day - 14 Chief Complaint: unable to obtain Luiza May is a 67 y.o. female who pulmonary is following for acute on chronic hypoxemic/hypercarbic respiratory failure, s/p Shiley #6 tracheostomy 10/04/23, previously on 4 LPM baseline O2 Interval History Patient was admitted to [facility] ICU from [facility] on 09/26/23 with acute on chronic hypoxic/hypercarbic [...] Ford MD Pulmonary & Critical Care Medicine [facility] Images from the original note were not included. Hospitalist Progress Note 10/09/2023 Subjective: Admit Date: 09/26/2023 PCP: Joy Stahl Room#: [id number] A BRIEF HOSPITAL COURSE: Mrs May is a 67yoF with hx of COPD on 4L baseline, TIO with CPAP, HFpEF, prior SDH 01/08/22 following a fall, prior MCA stroke with residual dysphagia, seizures, prior DVT- no OAC, HTN, HPL, Crest, anxiety, depression, alcohol abuse, and recent admit at [facility] after fall 08/05/23 with parafalcine SDH whom presented to [facility] on 09/25 with recurrent seizures and hypercapnia. Loaded with keppra and redosed with dilantin for seizures. She did not respond to use of NIV for hypercapnia (pH 7.1) and was intubated at [place]. Transferred to ICU at [facility]. Her ICU stay complicated by MSSA [...] this interval not displayed. BMP: Recent Labs 10/07/23 034 10/08/23 0202 10/09/23 0424 NA 144 143 145 [...] MAY Mobile Relation: Daughter Secondary Emergency Contact: [employer] Mobile Relation: Son Preferred language: Salvadorean Powder Nipper needed? No Christophe Irwin DO Division of Hospitalist Medicine [facility] Removed patients urethral catheter per protocol. Patient educated on need for PVR bladder scans. Images from the original note were not included. Hospitalist Progress Note 10/08/2023 Subjective: Admit Date: 09/26/2023 PCP: Joy Stahl Room#: [id number] A BRIEF HOSPITAL COURSE: Mrs May is a 67yoF with hx of COPD on 4L baseline, TIO with CPAP, HFpEF, prior SDH 01/08/22 following a fall, prior MCA stroke with residual dysphagia, seizures, prior DVT- no OAC, HTN, HPL, Crest, anxiety, depression, alcohol abuse, and recent admit at [facility] after fall 08/05/23 with parafalcine SDH whom presented to [facility] on 09/25 with recurrent seizures and hypercapnia. Loaded with keppra and redosed with dilantin for seizures. She did not respond to use of NIV for hypercapnia (pH 7.1) and was intubated at [place]. Transferred to ICU at [facility]. Her ICU stay complicated by MSSA [...] MAY Mobile Relation: Daughter Secondary Emergency Contact: [employer] Mobile Relation: Son Preferred language: Salvadorean Powder Nipper needed? No Christophe Irwin DO Division of Hospitalist Medicine [facility] Images from the original note were not included. OCCUPATIONAL THERAPY [facility] Treatment Note Name/MRN: Luiza May ([id number]) Date of : 1955 Age: 67 y.o. [...] original note were not included. PHYSICAL THERAPY [facility] Treatment Note Name/MRN: Luiza May ([id number]) Date of : 1955 Age: 67 y.o. Room/Bed: [facility] A Discharge Recommendation: IP Rehab Equipment Needed: [...] Objective Ambulation Ambulation 1 Assistive device(s) used: TELETRAY OPERATOR Assist level: Min Assist, x2 Person Assist Distance (ft): 4ft x2 bed><BSC Quality of gait: uneven step length, narrow JAMIE, slow matt, postural sway Ambulation 2 Assistive device(s) used: TELETRAY OPERATOR Assist level: Min Assist, x2 Person [...] able to progress to SBA. Standing with TELETRAY OPERATOR, narrow JAMIE, postural sway, min assist x2 for balance; dynamic standing with TELETRAY OPERATOR, mini marches 2 x 10 reps [...] from the original note were not included. [facility] Progress Note Luiza May [...] Seizure disorder on Dilantin was sent to [facility] from [facility] for management of Encephalopathy secondary to Acute [...] ANGIOGRAM W AND/OR WO IV CONTRAST 07/26/[address]22 [facility] IMAGING FAMILY HISTORY No family history [...] respiratory distress , trached Left forearm: 1.0cmx2.5cmx0.1cm. [place] tissue noted. Scant serosang drainage. Periwound fragile [...] to follow Recommend to follow up at [facility] wound care center after hospital discharge. [...] my own independent evaluation of this patient. [facility] ADMISSION MEDICATION RECONCILIATION Date: 10/08/23 Room:[facility] A Patient Name: Luiza May Allergies: Tetanus [...] list based on last fill dates from [facility]. UNABLE to verify OTC med fills, so [...] original note were not included. OCCUPATIONAL THERAPY [facility] Name/MRN: Luiza May ([id number]) Date: 10/08/2023 Pt reviewed, goals and POC remain appropriate, no re-eval required. Lu Magallanes OT Images from the original note were not included. [facility] Pulmonary Medicine [address] [place] [address] Patient - Luiza May, Age - 67 [...] O2 Interval History Patient was admitted to [facility] ICU from [facility] on 09/26/23 with acute on chronic hypoxic/hypercarbic [...] Ford MD Pulmonary & Critical Care Medicine [facility] ICU interval note; Peer to Peer completed [...] original note were not included. PHYSICAL THERAPY [facility] Name/MRN: Luiza May ([id number]) Date: 10/07/2023 PT treatment attempted x2. Pt [...] from the original note were not included. [facility] Progress Note Luiza May [...] Seizure disorder on Dilantin was sent to [facility] from [facility] for management of Encephalopathy secondary to Acute [...] ANGIOGRAM W AND/OR WO IV CONTRAST 07/26/2022 [facility] IMAGING FAMILY HISTORY No family history [...] no respiratory distress , Left forearm: 1.0cmx2.5cmx0.1cm. [place] tissue noted. Scant serosang drainage. Periwound fragile [...] bodily fluids) - Apply ET mix. Leave HAND SLITTER. Apply TID and PRN. No wounds to left heel Reposition q2hrs Incontinent check q2hrs Waffle cushion to chair Nutritional support Wound Care to follow Recommend to follow up at [facility] wound care center after hospital discharge. [...] depression, alcohol abuse, and recent admit at [facility] after fall 08/05/23 with parafalcine SDH whom presented to [facility] on 09/25 with recurrent seizures and hypercapnia. Loaded with keppra and redosed with dilantin for seizures. She did not respond to use of NIV for hypercapnia (pH 7.1) and was intubated at [place]. Transferred to ICU at [facility]. Her ICU stay complicated by MSSA [...] index is 28.74 kg/m . I/O: 10/05 0700 - 10/06 0659 In: 1876 [I.V.:269] Out: 3340 [Urine:3340] Ventilator: [...] Normal [] Scar/Lesion/Mass Inspection of teeth/lips/gums Dentition: [x][place] Teeth []Dentures Lips/Gums: [x]Intact []Lesion Present Mucosa: [x][place] [x]Moist []Dry Neck: External Appearance Overall Appearance: [...] within last 24 hours- BMP: Recent Labs 10/05/2361610/06/23 0010 10/07/23 034 NA 142 145 144 K 3.2* 3.9 3.4* CL 102 102 97* CO2 33* 32* 36* BUN 15 18* 21* CREATININE 0.59 0.61 0.53 CALCIUM 8.9 9.0 9.5 MG 1.6 1.6 1.6 PHOS 2.7 4.0 3.4 LFTs:No results for input(s): AST , ALT , PROT , ALBUMIN , BILITOT , BILIRUBINU , ALKPHOS , LIPASE in the last 72 hours. Glucose: Recent Labs 10/05/2361610/06/23 0010 10/07/23 0347 GLUCOSE 115* 137* 112* [...] -- 15.1* -- ABGs: Recent Labs 10/05/23 03410/06/23 03410/07/23 0558 PHART 7.459* 7.362 -- [id number] 45.7* 60.6* -- PO2ART 117.0* 361.3* -- AFL8ONG 31.7* 33.6* -- [id number] 40% Oxygen Vent Vent Lactic Acid: Recent [...] original note were not included. PHYSICAL THERAPY [facility] Re-Evaluation Name/MRN: Luiza May ([id number]) Evaluation Date: 10/06/2023 Date of : 1955 [...] ANGIOGRAM W AND/OR WO IV CONTRAST 07/26/[address]22 [facility] IMAGING Admission Diagnosis: Patient Active Problem List Diagnosis Date Noted Seizure (HCC) 09/26/2023 Severe malnutrition (CMS/HCC) ([facility]) 07/26/2022 COPD exacerbation ([facility]) 07/25/2022 Acute respiratory failure with hypoxia and hypercapnia ([facility]) 09/26/2023 Hemorrhage of gastrointestinal tract 04/17/2017 Cerebrovascular accident (CVA) due to embolism of cerebral artery ([facility]) 02/12/2017 Acute deep vein thrombosis (DVT) of distal vein of right lower extremity ([facility]) 02/12/2017 Encephalopathy 02/12/2017 Posterior reversible encephalopathy syndrome (PRES) 02/12/2017 Alcohol abuse 02/10/2017 NSTEMI (non-ST elevated myocardial infarction) ([facility]) 02/10/2017 History of hematemesis 02/10/2017 Medical Precautions: [...] Responsibilities: Independent Receives Help From: Family Active Melt House Centrifugal Operator: Yes Prior Level of Function ADL Assistance: [...] Raw Score (No Stairs) : 13 [facility] Score: Static standing (1 or more minutes) [...] Code Treatment Minutes: (re-eval, 1 FA) Kailee Wagner, PT Patient's Physical Therapy Plan of Care supervision is transferred to a [facility] Physical Therapist. Goals and/or treatment plan was established in collaboration with patient/family/other representatives. Images from the original note were not included. [facility] Progress Note Luiza May [...] Seizure disorder on Dilantin was sent to [facility] from [facility] for management of Encephalopathy secondary to Acute [...] ANGIOGRAM W AND/OR WO IV CONTRAST 07/26/2022 [facility] IMAGING FAMILY HISTORY No family history [...] , intubated via trach Left forearm: 1.0cmx2.5cmx0.1cm. [place] tissue noted. Scant serosang drainage. Periwound fragile [...] to follow Recommend to follow up at [facility] wound care center after hospital discharge. [...] alcohol abuse. Pt with recent admission at [facility] after unwitnessed fall 08/05/2023 resulting in parafalcine [...] was intubated and transferred and admitted to [facility] ICU on 09/25. -09/26: +MSSA on [...] 5 mg, Oral, Daily propofol, 5-50 mcg/kg/min ([place]), IntraVENous, Once artificial tears, 1 drop, Both Eyes, Daily QUEtiapine, 100 mg, Oral, Nightly QUEtiapine, 50 mg, Oral, Daily Senna, 10 mL, Oral, BID stomahesive in petrolatum, , Topical, q8h thiamine (Vitamin B1) 100 mg in sodium chloride 0.9 % 100 mL IVPB, 100 mg, IntraVENous, q24h Continuous Infusions:dexmedeTOMIDine, 0.1-0.6 mcg/kg/hr, Last Rate: 0.6 mcg/kg/hr (10/06/23 0457) Objective: Last Vitals: BP MAP 114/67 (10/06/23 0500) 81 (10/06/23 0500) Arterial BP MAP Temp 37.6 C (99.7 F) (10/06/23599) Pulse 101 (10/06/23 08) Resp 20 (10/06/23821) SpO2 98 % (10/06/23821) Weight 74.4 kg (164 lb 0.4 oz) (10/06/23 06) BMI Body mass index is 29.99 kg/m [...] Normal [] Scar/Lesion/Mass Inspection of teeth/lips/gums Dentition: [x][place] Teeth []Dentures Lips/Gums: []Intact []Lesion Present Mucosa: [][place] []Moist []Dry Neck: External Appearance Overall Appearance: [...] within last 24 hours- BMP: Recent Labs 10/04/2342610/05/2361610/06/23 0010 NA 140 142 145 K 3.4* [...] last 72 hours. Glucose: Recent Labs 10/04/2342610/05/23 0610/06/23 0010 GLUCOSE 102* 115* 137* [place]cal: No results for input(s): PROCAL in the last 72 hours. CBC: Recent Labs 10/04/2310/03/24 0829 10/05/23 0617 10/05/23 1102 10/06/23 0010 [...] interval not displayed. ABGs: Recent Labs 10/04/23 03410/05/23 0343 10/06/23 0343 PHART 7.391 7.459* 7.362 MKR3WZN 48.0* 45.7* 60.6* PO2ART 164.0* 117.0* 361.3* VRY2KPY 28.5* 31.7* 33.6* F2QZJJJQ 50% Oxygen 40% Oxygen Vent Lactic Acid: [...] through a skull defect) superimposed on a bkvkvbrt-kq-qxgrus global encephalopathy. CTA Chest 09/26: IMPRESSION: Minimal [...] bowel loops appear to be colonic and Scandia's is a consideration. Follow-up recommended. CT abd/pelvis [...] arise with Trach/Vts/desaturations could consider transferring to 7 tomorrow as today is 48hrs post new [...] (temporalis), Hand (interosseous) Fluid Accumulation: Mild Extremities Process Treater Strength: Not Performed Nutrition Assessment: Pt is [...] seizure disorder on Dilantin who presents from [facility] for management of encephalopathy d/t acute on chronic hypoxic hypercapnic respiratory failure and an apparent break-through seizure. Wound Care consulted for left heel, left forearm and lip. Pt continues on vent. She is s/p trach/PEG yesterday 10/04/23. Vital 1.5 @ 35 mls/hour. Estimated Daily Nutrient Needs: Energy Requirements Based On: Kcal/kg Weight Used for Energy Requirements: [place] Weight for Energy Calculation (kg): 50 kg Total Energy Requirements (kcals/day): 25-30 kcals/kg = 1545-1825 kcals/day Weight Used for Protein Requirements: [place] Weight in Kg Used for Protein Requirements: [...] Weight: 72.2 kg (159 lb 2.8 oz) [place] Body Weight (lbs) (Calculated): 110 lbs [place] Body Weight (Kg) (Calculated): 50 kg % [place] Body Weight (Calculated): 155.1 % BMI (kg/m2) [...] Planning: Too soon to determine Jamila Wiley RD,LD,CNSC Contact: *[phone] or Epic Chat Images from the original note were [...] - Per ICU: levetiracetam HX CVA/SDH - DIRECTOR OF PHYSIOTHERAPY SERVICES resided at home with s/o - PT/OT [...] trach and peg, plans for [facility] - without symptoms that require management will sign off at this time Luiza May has been seen in consultation by [facility] during their admission to [facility]. They currently have no uncontrolled symptoms and have established goals of care and we have signed off of their case. The patient has established follow-up with [facility] . Total of 40 minutes spent on [...] crani/evacuation, anxiety, ETOH abuse, seizures, brought to [facility] for seizures however supratherapeutic dilantin level, hypercarbic requiring intubation and transfer to [facility] ICU level of care. Was successfully [...] other systems were reviewed and are negative. Webster Symptom Assessment Score Webster Score Pain Score 0 Tiredness Score 5 [...] patient hospice appropriate? TBD Spiritual Care Note [facility] Palliative Care Patient Name:Luiza May Chief [...] from the original note were not included. [facility] Wound Care Progress Note Luiza May [...] Seizure disorder on Dilantin was sent to [facility] from [facility] for management of Encephalopathy secondary to Acute [...] ANGIOGRAM W AND/OR WO IV CONTRAST 07/26/[address]22 [facility] CT IMAGING FAMILY HISTORY No family history [...] No drainage. Periwound fragile Left forearm: 1.0cmx2.5cmx0.1cm. [place] tissue noted. Scant serosang drainage. Periwound fragile [...] bodily fluids) - Apply ET mix. Leave HAND SLITTER. Apply TID and PRN. No wounds to left heel Nutritional support Wound Care to follow Recommend to follow up at [facility] wound care center after hospital discharge. [...] alcohol abuse. Pt with recent admission at [facility] after unwitnessed fall 08/05/2023 resulting in parafalcine [...] was intubated and transferred and admitted to [facility] ICU on 09/25. -09/26: +MSSA on [...] 0.9 % 250 mL infusion, 0.05-2 mg/kg/hr ([place]), Last Rate: Stopped (10/05/23 1030) norepinephrine, 1-100 [...] Normal [] Scar/Lesion/Mass Inspection of teeth/lips/gums Dentition: [x][place] Teeth []Dentures Lips/Gums: []Intact []Lesion Present Mucosa: [][place] []Moist []Dry Neck: External Appearance Overall Appearance: [...] last 24 hours- BMP: Recent Labs 10/03/23 04210/04/23 04210/05/23 0617 NA 142 140 142 K 3.9 [...] 0343 10/05/23 0343 PHART 7.305* 7.391 7.459* FZT4YPF 57.0* 48.0* 45.7* PO2ART 98.9 164.0* 117.0* YFE4ZII 27.7* 28.5* 31.7* I4ZOFGGT Vent 50% Oxygen 40% Oxygen Lactic Acid: [...] through a skull defect) superimposed on a cheylzja-ef-ahuilk global encephalopathy. CTA Chest 09/26: IMPRESSION: Minimal [...] bowel loops appear to be colonic and Scandia's is a consideration. Follow-up recommended. CT abd/pelvis [...] discoloration LABS CBC: Recent Labs 10/03/2342310/03/23 0937 10/04/2342610/04/23 0829 10/05/23 0343 10/05/23 0617 WBC 10.7 -- 8.2 -- -- 5.3 HGB 7.3* < > 6.9* 7.2* 7.5 6.0* HCT 23.7* -- 22.0* 22.8* -- 19.3* PLT 224 -- 219 -- -- 183 < > = values in this interval not displayed. BMP: Recent Labs 10/03/2342310/04/23 04210/05/23 0617 NA 142 140 142 K 3.9 [...] 0.9 % 250 mL infusion, 0.05-2 mg/kg/hr ([place]), Last Rate: 0.6 mg/kg/hr (10/05/23 0220) norepinephrine, [...] reach out with questions or concerns - GABRIELA Sutton MD General Surgery PGY-3 Pager # [phone] Associated attestation - Seth Muller MD - [...] Surgery Division of Trauma Department of Surgery [facility] P Spiritual Care Note [facility] Palliative Care Patient Name:Luiza May Chief [...] Surgery Division of Trauma Department of Surgery [facility] P Images from the original note were not included. PHYSICAL THERAPY [facility] Name/MRN: Luiza May ([id number]) Date: 10/04/2023 PT held. Patient re-intubated 10/03/23. [...] alcohol abuse. Pt with recent admission at [facility] after unwitnessed fall 08/05/2023 resulting in parafalcine [...] was intubated and transferred and admitted to [facility] ICU on 09/25. -09/26: +MSSA on [...] 0.9 % 250 mL infusion, 0.05-2 mg/kg/hr ([place]), Last Rate: 0.55 mg/kg/hr (10/04/23622) norepinephrine, 1-100 [...] Normal [] Scar/Lesion/Mass Inspection of teeth/lips/gums Dentition: [x][place] Teeth []Dentures Lips/Gums: []Intact []Lesion Present Mucosa: [][place] []Moist []Dry Neck: External Appearance Overall Appearance: [...] Labs 10/02/23441 PROCAL 0.09 CBC: Recent Labs 10/02/2344110/02/235 10/03/2342310/03/2393610/03/23110610/04/2334210/04/23426 WBC 10.8* -- 10.7 -- -- [...] Recent Labs 10/03/2393610/03/23110610/04/23342 PHART 7.203* 7.305* 7.391 HRD9LJM 74.5* 57.0* 48.0* PO2ART 88.2 98.9 164.0* HJK3BTN 28.7* 27.7* 28.5* L5NUSETM 40% Oxygen Vent 50% Oxygen Lactic Acid: [...] through a skull defect) superimposed on a bddbizwq-eh-nnjhey global encephalopathy. CTA Chest 09/26: IMPRESSION: Minimal [...] bowel loops appear to be colonic and Scandia's is a consideration. Follow-up recommended. CT abd/pelvis [...] change to taper). Last day for cefazolin D#01/08. Repeat PNA pcr and resp cx from [...] 137 --> was intubated and transferred to [facility] ICU. 09/27: Extubated overnight. Required re-intubation [...] resulting in subdural hematoma - admitted to [facility]. [facility]'ED at that time. Has not followed up [...] 0.9 % 250 mL infusion, 0.05-2 mg/kg/hr ([place]), Last Rate: 0.55 mg/kg/hr (10/03/23 1255) norepinephrine, [...] Normal [] Scar/Lesion/Mass Inspection of teeth/lips/gums Dentition: [x][place] Teeth []Dentures Lips/Gums: [x]Intact []Lesion Present Mucosa: [x][place] []Moist [x]Dry Neck: External Appearance Overall Appearance: [...] 0.3 ALKPHOS 78 Glucose: Recent Labs 10/01/2335710/02/2344110/03/23 0424 GLUCOSE 149* 104* 109* Procal: Recent Labs 10/02/23441 PROCAL 0.09 CBC: Recent Labs 10/01/2335710/02/2344110/02/23 21010/03/23 0424 10/03/23 0910/03/23 1107 WBC 7.4 10.8* -- 10.7 -- -- HGB 7.6* 7.7* < > 7.3* 8.3 7.8 HCT 24.7* 25.4* -- 23.7* -- -- PLT 153 178 -- 224 -- -- MCV 92.2 93.0 -- 93.3 -- -- RDW 14.6 14.5 -- 14.3 -- -- < > = values in this interval not displayed. ABGs: Recent Labs 10/02/23 23010/03/23 0937 10/03/23 1107 PHART 7.304* 7.203* 7.305* TTC2ZBA 57.5* 74.5* 57.0* PO2ART 92.6 88.2 98.9 YMH2SDM 27.9* 28.7* 27.7* M9PELAIE Bi-PAP 40% Oxygen Vent Lactic Acid: No [...] following. Increased bowel regimen. 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 Hx bilateral ischemic stroke (?[id number]) Hx recent subdural after fall (08/2023) Hx [...] 137 --> was intubated and transferred to [facility] ICU. 09/27: Extubated overnight. Required re-intubation [...] resulting in subdural hematoma - admitted to [facility]. [facility] NM'ED at that time. Has not followed up [...] Normal [] Scar/Lesion/Mass Inspection of teeth/lips/gums Dentition: [x][place] Teeth []Dentures Lips/Gums: [x]Intact []Lesion Present Mucosa: [x][place] []Moist [x]Dry Neck: External Appearance Overall Appearance: [...] last 24 hours- BMP: Recent Labs 09/30/23 02410/01/23 0358 10/02/23 0442 NA 142 143 143 K 3.1* 3.5 3.3* CL 100 105 104 CO2 BUN 13 14 16 CREATININE 0.55 0.51* 0.64 CALCIUM 9.4 9.2 9.3 MG 2.0 1.9 2.0 PHOS 1.5* 3.0 3.4 LFTs: Recent Labs 10/01/23 035 AST 31 ALT 19 PROT 7.0 ALBUMIN 4.5 BILITOT 0.3 ALKPHOS 78 Glucose: Recent Labs 09/30/23 02410/01/23 0358 10/02/23 0442 GLUCOSE 169* 149* 104* Procal: Recent Labs 09/30/23 02409/30/23 0725 10/02/23 0442 PROCAL 0.08 0.08 0.09 CBC: Recent Labs 09/30/23 02409/30/23 0311 10/01/23 0358 10/02/23 0442 WBC 11.4* -- 7.4 10.8* HGB 7.9* 8.7 7.6* 7.7* HCT 24.9* -- 24.7* 25.4* PLT 146 -- 153 178 MCV 90.2 -- 92.2 93.0 RDW 13.8 -- 14.6 14.5 ABGs: Recent Labs 09/30/23310 L8QNHIBH Vent Lactic Acid: Recent Labs 09/30/23246 LACTATE [...] following. Increased bowel regimen. 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 Hx bilateral ischemic stroke (?[id number]) Hx recent subdural after fall (08/2023) Hx [...] Lab Units 10/02/23 0442 10/01/23 0358 09/30/23 0311 09/30/23 0247 WBC AUTO 10*3/uL 10.8* 7.4 -- 11.4* HEMOGLOBIN g/dL 7.7* 7.6* -- 7.9* HEMOGLOBIN BG g/dl -- -- 8.7 -- HEMATOCRIT % 25.4* 24.7* -- 24.9* PLATELETS AUTO 10*3/uL 178 153 -- 146 Results from last 7 days Lab Units 10/02/2344110/01/23 0358 09/30/23 0247 SODIUM mmol/L 143 143 142 POTASSIUM mmol/L 3.3* 3.5 3.1* CHLORIDE mmol/L 104 105 100 CO2 mmol/L 29 30 30 BUN mg/dL 16 14 13 CREATININE mg/dL 0.64 0.51* 0.55 GLUCOSE mg/dL 104* 149* 169* CALCIUM mg/dL 9.3 9.2 9.4 Results from last 7 days Lab Units 10/01/23 03509/28/23 0639 09/27/23 0516 ALK PHOS U/L 78 101 150* BILIRUBIN TOTAL mg/dL 0.3 0.6 0.3 BILIRUBIN DIRECT mg/dL 0.0 0.0 0.0 PROTEIN TOTAL g/dL 7.0 6.0* 5.7* ALT U/L 19 62* 100* AST U/L 31 47* 126* No results found for: LIPASE Results from last 7 days Lab Units 10/02/2344110/01/23 0358 09/30/23 0247 MAGNESIUM mg/dL 2.0 1.9 [...] Surgery Division of Trauma Department of Surgery [facility] 10/02/23 0831 Patient Parameters Ventilator [...] 137 --> was intubated and transferred to [facility] ICU. 09/27: Extubated overnight. Required re-intubation that afternoon d/t hypoxia/increased WOB after getting up to [facility], desat ~65%, improved with BVM - eyes deviated to R -?seizure. Difficult to ventilate, started on versed gtt with improvement. 09/28: requiring ketamine/versed/precedex and still intermittently agitated. 09/29: only requiring ketamine. Passing SBT. Recent unwitnessed fall 08/05/2023 resulting in subdural hematoma - [facility]. Has not followed up [...] 0.9 % 250 mL infusion, 0.05-2 mg/kg/hr ([place]), Last Rate: 0.8 mg/kg/hr (10/01/23 0119) norepinephrine, [...] Normal [] Scar/Lesion/Mass Inspection of teeth/lips/gums Dentition: [x][place] Teeth []Dentures Lips/Gums: [x]Intact []Lesion Present Mucosa: [x][place] []Moist [x]Dry Neck: External Appearance Overall Appearance: [...] hours- BMP: Recent Labs 09/29/23 0558 09/30/23 02410/01/23 035 NA 138 142 143 K 3.2* 3.1* 3.5 CL 100 100 105 CO2 30 30 30 BUN 11 13 14 CREATININE 0.45* 0.55 0.51* CALCIUM 8.6 9.4 9.2 MG 1.6 2.0 1.9 PHOS 3.4 1.5* 3.0 LFTs: Recent Labs 10/01/23 035 AST 31 ALT 19 PROT 7.0 ALBUMIN 4.5 BILITOT 0.3 ALKPHOS 78 Glucose: Recent Labs 09/29/23 0509/30/2324610/01/23 035 GLUCOSE 128* 169* 149* Procal: Recent Labs 09/30/23 02409/30/23 0725 PROCAL 0.08 0.08 CBC: Recent Labs 09/29/23 0509/29/23 1000 09/30/2324609/30/23 03110/01/23 0358 WBC 8.4 -- 11.4* -- 7.4 HGB 8.2* < > 7.9* 8.7 7.6* HCT 25.8* -- 24.9* -- 24.7* PLT 102* -- 146 -- 153 MCV 90.5 -- 90.2 -- 92.2 RDW 13.7 -- 13.8 -- 14.6 < > = values in this interval not displayed. ABGs: Recent Labs 09/28/23 1731 09/29/23 1000 09/30/23 031 PHART 7.386 -- -- NNT8FRY 44.0 -- -- PO2ART 162.5* -- -- AFC3BYV 25.8* -- -- D9NZVMRN 60% Oxygen 50% Oxygen Vent Lactic Acid: [...] yesterday with no success. 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 Dilanticourtney Az'ed, started on keppra on admission - will [...] mixed with sepsis. Hx bilateral ischemic stroke (?[id number]) Hx recent subdural after fall (08/2023) Hx [...] and physicians, excluding procedures. Spiritual Care Note [facility] Palliative Care Patient Name:Luiza May Chief [...] original note were not included. PHYSICAL THERAPY [facility] Initial Evaluation Name/MRN: Luiza May ([id number]) Evaluation Date: 10/01/2023 Date of : 1955 [...] Cerebral artery occlusion with cerebral infarction (CMS/HCC) ([facility]) COPD (chronic obstructive pulmonary disease) ([facility]) Hypertension Past Surgical History: Past Surgical History: Procedure Laterality Date APPENDECTOMY CHOLECYSTECTOMY COLONOSCOPY COLONOSCOPY CT CHEST ANGIOGRAM W AND/OR WO IV CONTRAST 07/26/2022 CT CHEST ANGIOGRAM W AND/OR WO IV CONTRAST 07/26/[address]22 [facility] CT IMAGING Admission Diagnosis: Patient Active Problem List Diagnosis Date Noted Seizure (HCC) 09/26/2023 Severe malnutrition (CMS/HCC) (HCC) 07/26/2022 COPD exacerbation ([facility]) 07/25/2022 Hemorrhage of gastrointestinal tract 04/17/2017 Cerebrovascular [...] of Care supervision is transferred to a [facility] Services Physical Therapist. Goals and/or treatment plan was established in collaboration with patient/family/other representatives. Images from the original note were not included. OCCUPATIONAL THERAPY [facility] Initial Evaluation Name/MRN: Luiza May ([id number]) Evaluation Date: 10/01/2023 Date of : 1955 Admission Date: 09/26/2023 2:17 PM Age: 67 y.o. Room/Bed: T2-215/T2-215 A Discharge Recommendation: Care Home Facility Assessment IMPRESSION: Pt presents with seizures [...] disease) Cerebral artery occlusion with cerebral infarction ([facility]) ([facility]) COPD (chronic obstructive pulmonary disease) ([facility]) Hypertension Past Surgical History: Past Surgical History: Procedure Laterality Date APPENDECTOMY CHOLECYSTECTOMY COLONOSCOPY COLONOSCOPY CT CHEST ANGIOGRAM W AND/OR WO IV CONTRAST 07/26/2022 CT CHEST ANGIOGRAM W AND/OR WO IV CONTRAST 07/26/2022 [facility] CT IMAGING Admission Diagnosis: Patient Active Problem List Diagnosis Date Noted Seizure ([facility]) 09/26/2023 Severe malnutrition ([facility]) ([facility]) 07/26/2022 COPD exacerbation ([facility]) 07/25/2022 Hemorrhage of gastrointestinal tract 04/17/2017 Cerebrovascular accident (CVA) due to embolism of cerebral artery ([facility]) 02/12/2017 Acute deep vein thrombosis (DVT) of distal vein of right lower extremity ([facility]) 02/12/2017 Encephalopathy 02/12/2017 Posterior reversible encephalopathy syndrome (PRES) 02/12/2017 Alcohol abuse 02/10/2017 NSTEMI (non-ST elevated myocardial infarction) ([facility]) ([facility]) 02/10/2017 History of hematemesis 02/10/2017 Medical Precautions: [...] Responsibilities: Independent Receives Help From: Family 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 ICU level of care. Was successfully [...] other systems were reviewed and are negative. Webster Symptom Assessment Score Webster Score Pain Score 0 Tiredness Score 0 [...] 137 --> was intubated and transferred to [facility] ICU. 09/27: Extubated overnight. Required re-intubation that afternoon d/t hypoxia/increased WOB after getting up to [facility], desat ~65%, improved with BVM - eyes deviated to R -?seizure. Difficult to ventilate, started on versed gtt with improvement. 09/28: requiring ketamine/versed/precedex and still intermittently agitated. Recent unwitnessed fall 08/05/2023 resulting in subdural hematoma - admitted to [facility]. [facility]'ED at that time. Has not followed up [...] 0.9 % 250 mL infusion, 0.05-2 mg/kg/hr ([place]), Last Rate: 0.75 mg/kg/hr (09/30/23 0925) norepinephrine, [...] Normal [] Scar/Lesion/Mass Inspection of teeth/lips/gums Dentition: [x][place] Teeth []Dentures Lips/Gums: [x]Intact []Lesion Present Mucosa: [x][place] []Moist [x]Dry Neck: External Appearance Overall Appearance: [...] within last 24 hours- BMP: Recent Labs 09/27/23192309/28/2363809/29/23 0558 09/30/23 024 NA -- 138 138 142 K -- [...] 0725 PROCAL 0.08 0.08 CBC: Recent Labs 09/28/2363809/28/23121809/28/23173009/29/23 0558 09/29/23 1000 09/30/23 02409/30/23 031 WBC 6.6 -- -- 8.4 -- 11.4* -- HGB 7.7* -- < > 8.2* 8.5 7.9* 8.7 HCT 25.0* 30* -- 25.8* -- 24.9* -- PLT 101* -- -- 102* -- 146 -- MCV 92.6 -- -- 90.5 -- 90.2 -- RDW 13.9 -- -- 13.7 -- 13.8 -- < > = values in this interval not displayed. ABGs: Recent Labs 09/28/23121809/28/23173009/29/23 1000 09/30/23 031 PHART 7.170* 7.386 -- -- BVL3BID 80.0* 44.0 -- -- PO2ART 439.0* 162.5* -- -- URD6HIQ 29.2* 25.8* -- -- SO2ART 99.9 -- -- -- U3ENIDMD -- 60% Oxygen 50% Oxygen Vent Lactic [...] Needs bipap when extubated. 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 Hx bilateral ischemic stroke (?[id number]) Hx recent subdural after fall (08/2023) Hx [...] loss Temples (temporalis), Hand (interosseous) Fluid Accumulation: Process Treater Strength: Not Performed Nutrition Assessment: Pt is [...] seizure disorder on Dilantin who presents from [facility] for management of encephalopathy d/t acute on chronic hypoxic hypercapnic respiratory failure and an apparent break-through seizure. Wound Care consulted for left heel, left forearm and lip. Pt continues on vent. Estimated Daily Nutrient Needs: Energy Requirements Based On: Kcal/kg Weight Used for Energy Requirements: [place] Weight for Energy Calculation (kg): 50 kg Total Energy Requirements (kcals/day): 25-30 kcals/kg = 3308-4244 kcals/day Weight Used for Protein Requirements: [place] Weight in Kg Used for Protein Requirements: [...] Weight: 72.2 kg (159 lb 2.8 oz) [place] Body Weight (lbs) (Calculated): 110 lbs [place] Body Weight (Kg) (Calculated): 50 kg % [place] Body Weight (Calculated): 141.9 % BMI (kg/m2) [...] Planning: Too soon to determine Jamila Wiley RD,LD,[facility] Contact: *[phone] or [employer] Chat Spiritual Care Note [facility] Palliative Care Patient Name:Luiza May Chief [...] nine grandchildren. Patient confirmed that she is [employer] and attends a [employer] in [place]. 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 ICU level of care. Was successfully [...] other systems were reviewed and are negative. Webster Symptom Assessment Score Webster Score Pain Score 0 Tiredness Score 0 [...] Assessed by: patient and provider. Social history: [place] status: no Marital status: Living status: with [...] original note were not included. PHYSICAL THERAPY [facility] Name/MRN: Luiza May ([id number]) Date: 09/30/2023 Attempted PT evaluation, pt was non arousable despite many techniques to elicit participation. Continue as screens and evaluate as appropriate. Lisa Deluna Images from the original note were not included. [facility] Wound Care Progress Note Luiza May [...] Seizure disorder on Dilantin was sent to [facility] from [facility] for management of Encephalopathy secondary to Acute [...] ANGIOGRAM W AND/OR WO IV CONTRAST 07/26/2022 [facility] CT IMAGING FAMILY HISTORY No family history [...] No drainage. Periwound fragile Left forearm: 1.0cmx2.5cmx0.1cm. [place] tissue noted. Scant serosang drainage. Periwound fragile [...] to follow Recommend to follow up at [facility] wound care center after hospital discharge. [...] original note were not included. OCCUPATIONAL THERAPY [facility] Name/MRN: Luiza May ([id number]) Date: 09/29/2023 Pt not appropriate for therapy [...] 137 --> was intubated and transferred to [facility] ICU. 09/27: Extubated overnight. Required re-intubation that afternoon d/t hypoxia/increased WOB after getting up to [facility], desat ~65%, improved with BVM - eyes deviated to R -?seizure. Difficult to ventilate, started on versed gtt with improvement. Recent unwitnessed fall 08/05/2023 resulting in subdural hematoma - admitted to [facility]. [facility] at [facility]. Has not followed [...] 0.1-1.5 mcg/kg/hr, Last Rate: 1.2 mcg/kg/hr (09/29/23 0254) midazolam, 1-10 mg/hr, Last Rate: 7 mg/hr (09/29/23 0117) norepinephrine, 1-20 mcg/min, Last Rate: 1 mcg/min (09/29/23 0128) Objective: Last Vitals: BP MAP 128/56 (09/29/23 06) 76 (09/29/23599) Arterial BP MAP Temp 37 C (98.6 F) (09/29/23599) Pulse 79 (09/29/23599) Resp 18 (09/29/23599) SpO2 100 % (09/29/23599) Weight 70.8 kg (156 lb) (09/28/23 1046) BMI Body mass index is 28.53 kg/m . I/O: 09/27 699 - 09/28 658 In: 3514.5 [I.V.:3314.5] Out: [...] Normal [] Scar/Lesion/Mass Inspection of teeth/lips/gums Dentition: [x][place] Teeth []Dentures Lips/Gums: [x]Intact []Lesion Present Mucosa: [x][place] []Moist [x]Dry Neck: External Appearance Overall Appearance: [...] 09/28/23 1731 PHART 7.435 7.501* 7.170* 7.386 MJD4QID 58.4* 40.9 80.0* 44.0 PO2ART 52.6* 89.2 439.0* 162.5* EWX8IPA 38.3* 31.9* 29.2* 25.8* SO2ART -- 97.6 99.9 -- N9LGEOFT 40% Oxygen -- -- 60% Oxygen Lactic [...] again - palliative consulted. 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 Hx bilateral ischemic stroke (?[id number]) Hx recent subdural after fall (08/2023) Hx [...] original note were not included. PHYSICAL THERAPY [facility] Name/MRN: Luizalars May ([id number]) Date: 09/28/2023 PT orders received. Pt had to be re-intubated and sedated this AM. Will hold PT and continue to follow with PT screens. Kadi Mcneal PT Speech-Language Pathology Received orders for a speech evaluation and treat. Patient is currently intubated and unable to participate. Completed orders and await re-consult 12- 24 hours post-extubation. Vianca Sharif MA CCC-GREY TENDER 09/28/23 1226 Patient Parameters Ventilator On Yes [...] from the original note were not included. [facility] Progress Note Luiza May [...] Seizure disorder on Dilantin was sent to [facility] from [facility] for management of Encephalopathy secondary to Acute [...] ANGIOGRAM W AND/OR WO IV CONTRAST 07/26/2022 [facility] CT IMAGING FAMILY HISTORY No family history [...] No drainage. Periwound fragile Left forearm: 1.0cmx2.5cmx0.1cm. [place] tissue noted. Scant serosang drainage. Periwound fragile [...] for: BC Assessment/Plan: Lip: Abrasion - Leave HAND SLITTER, Monitor every shift Left heel: PREVENTION - follow hospital protocol for prevention Left forearm: Skin tear - Clean with NS, apply adaptic then cover with foam dressing daily and PRN Nutritional support Wound Care to follow Recommend to follow up at [facility] wound care center after hospital discharge. [...] level reported to be subtherapeutic. Transferred to [facility] for further care. Limited history regarding [...] through a skull defect) superimposed on a uxzbqpza-ji-yszwnw global encephalopathy. CT Head 09/27/23: No acute [...] signing off for vancomycin dosing. Kayla Taylor RPh, PharmD Date: 09/28/23 Time: 6:53 AM ICU [...] 137 --> was intubated and transferred to [facility] ICU. Recent unwitnessed fall 08/05/2023 resulting in subdural hematoma - admitted to [facility]. Aspirin NM'ED at that time. Has not followed up with NSGY d/t location/distance. Interval Events: Extubated overnight after MRI to NIV. Taken off NIV this morning to GA and tolerating well. Denies SOB. On home [...] - 09/27 658 In: 3569 [I.V.:2489] Out: 1859 [Urine:1860] Oxygen Delivery: 4L NC Invasive Lines [...] Normal [] Scar/Lesion/Mass Inspection of teeth/lips/gums Dentition: [x][place] Teeth []Dentures Lips/Gums: [x]Intact []Lesion Present Mucosa: [x][place] []Moist [x]Dry Neck: External Appearance Overall Appearance: [...] 09/26/23 1542 09/27/23 0910 PHART 7.435 7.501* NGI8HBO 58.4* 40.9 PO2ART 52.6* 89.2 GBW9EAB 38.3* 31.9* SO2ART -- 97.6 Y6IISHST 40% Oxygen -- Lactic Acid: Recent Labs [...] Solumedrol for 5 day course for COPD. GREY TENDER eval. Seizures (known history DIRECTOR OF PHYSIOTHERAPY SERVICES) -Dilantin Az'ed, started on keppra on admission - will [...] can send studies. 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 Found to have respiratory failure as well (pH 7.14, pCO2 137), placed on NIV and ended up intubated. Dilantin level reported to be subtherapeutic. Transferred to [facility] for further care. Limited history regarding [...] through a skull defect) superimposed on a adhcprtn-zz-hvrhym global encephalopathy. CT Head 09/27/23: No acute [...] Dr. Briggs. ICU Progress Note Name: Luiza Higgins Gerber : 1955(67 y.o.) Date: 09/27/23 Team: MICU [...] 137 --> was intubated and transferred to [facility] ICU. Recent unwitnessed fall 08/05/2023 resulting in subdural hematoma - admitted to [facility]. [facility]ED at that time. Has not followed [...] Normal [] Scar/Lesion/Mass Inspection of teeth/lips/gums Dentition: [x][place] Teeth []Dentures Lips/Gums: [x]Intact []Lesion Present Mucosa: [x][place] [x]Moist []Dry Neck: External Appearance Overall Appearance: [...] ABGs: Recent Labs 09/26/23 1542 PHART 7.435 NGW6QZQ 58.4* PO2ART 52.6* TVN9JKI 38.3* S1YRBZYK 40% Oxygen Lactic Acid: Recent Labs 09/26/23 [...] today. Switch to precedex. Seizures (known history DIRECTOR OF PHYSIOTHERAPY SERVICES) -plan to stop dilantin, started on keppra [...] replaced - will recheck Hx ischemic stroke (?[id number]) Hx recent subdural after fall (08/2023) Hx [...] seizure disorder on dilantin, recurrent admissions to [facility] in the past for ac on ch hypercarbic respiratory failure, was admitted to [facility] ICU for recurrent seizure x2 and ac on ch hypercarbic respiratory failure with pH 7/01 and PCO2:130 that did not respond to NIV and was intubated. Now care transferred to [facility] ICU for further management of recurrent [...] Conjunctiva []Injected [x]Non-Injected Pinnae []Normal []Other Dentitian [][place] Teeth []Dentures []Poor dentition []Edentulous Oral Mucosa [][place] []Moist []Dry Oral ETT [x]Present []Absent Neck: [...] sec REGALADO ([]RUE []RLE []LUE []LLE) Neurologic: [place] []Yes []No Corneal reflexes []Present []Absent Plantar [...] new evidence emerges. documented in this encounter [facility] 10-12-2023 Miscellaneous Notes Patient Choice Patient Name: LUIZA MAY Date of : 1955 All Providers Sent Referral Name: [facility] Phone: [phone] Address: [address] [place] [address] Name: [facility] Phone: [phone] Address: [address] [place] [address] Discharge med list, MAR and updated notes transmitted to [facility] via Careport per [facility] request. SPOKE WITH PT AND FAMILY AT BEDSIDE, NOW HAVE AUTH FOR PT TO GO TO [facility]. SW TO SET UP TRANSPORT. SECURE CHAT WITH DR CANSECO FOR DC ORDERS. TASKED CAM TO SEND DC PAPERWORK TO [facility]. BEDSIDE NURSE ALSO AWARE DISCHARGING TODAY. Social work follow up on coverage case. SW was notified by the [facility] that the patient approved for admission to [facility]. Transport arranged with Ashok Sorensen via COT for 4 pm moss picker. SW updated the patient at bedside on transport time and possible copay/expense for transport. SW updated the patients daughter Ameena via phone on transport time. SW updated patients bedside RN, community director and [facility] liaison on transport time. Images from the original note were not included. Care Management Progress Note WAITING FOR EXPEDITED APPEAL FOR [facility]. REMAINS TRACH/VENT, O2 AT 35%, PEG TUBE FEEDS. PREDNISONE TAPER AND AEROSOLS. PULM FOLLOWING. WILL CONTINUE TO FOLLOW. Discharge Milestones and Delays Expected Date/Time: 10/11/[address] discharge order Complete med reconciliation Case mgmt discharge readiness Clinical Stability Diagnsotic Workup Facility Choice Selection Facility Pre-cert Expected Discharge History Expected Date/Time Set By Reviewed At 10/11/2023 Nicki Mclean, FINESSE 10/11/2023 7:26 AM auth pending -started 10/0410/09/2023 Nicki Mclean RN 10/08/2023 8:00 AM 10/07/2023 Zoe Carmona RN 10/07/2023 10:54 AM 10/07/2023 Zoe Carmona RN 10/06/2023 11:14 AM 10/13/2023 [facility] 10/05/2023 7:31 AM 10/13/2023 [facility] 10/04/2023 8:15 AM 10/03/2023 Yanet Aguilar MD 10/01/2023 7:38 PM 10/06/2023 [facility] 10/01/2023 8:09 AM 10/03/2023 Renetta A [facility], RN 10/01/2023 8:08 AM 10/03/2023 Renetta Lars [facility], RN 09/30/2023 8:01 AM 10/03/2023 Renetta A [facility], RN 09/29/2023 7:19 AM 10/03/2023 Renetta Sousa [facility], RN 09/28/2023 7:50 AM 10/03/2023 [facility] 09/27/2023 9:40 AM 10/03/2023 Yuridia Pierre DO 09/26/2023 3:07 PM Length of Stay (Days): 15 GMLOS: 5.2 DCP- [facility] [place]- Appeal pending (started 10/07). Messaged LTAC liaison regarding [...] AEROSOLS. PULM FOLLOWING. PLAN TO DC TO [facility], EXPEDITED APPEAL PAPERWORK SIGNED BY DR IRWIN. [...] Barraza, FINESSE 10/01/2023 8:08 AM 10/03/2023 Renetta Barraza RN 09/30/2023 8:01 AM 10/03/2023 Renetta Barraza, FINESSE 09/29/2023 7:19 AM 10/03/2023 Renetta Barraza, FINESSE 09/28/2023 7:50 AM 10/03/2023 Renetat Barraza RN 09/27/2023 9:40 AM 10/03/2023 Yuridia [...] Yes, addressed in today's progress note Anticipated [employer] Medications (ICU initiated) or Dose Changes and Indication No Permanently Discontinued Home Medications and Reason for medication contraindication No [place] Catheter (please remove if able. Note: place DC order) Yes, indication diuresis, I&O Central Line (please remove if able. Note: place DC order) Yes, indication Unable to obtain peripheral access Transfer Discussed with: Dr Perez- [facility] and Dr Villafuerte- ICU If additional questions for ICU team within 24 hours of ICU transfer[facility]. Images from [...] 10 GMLOS: 5.2 Transportation form completed in [facility]. Referral placed to [facility] via [facility] per TCC request. Await review and response [...] Soliman. TCC spoke with patient's sister Ameena Godinez [phone] regarding discharge planning. Agreeable to patient going to [facility] in [place], [place]. TCC tasked HUMAN RESOURCES ADMINISTRATOR to send referral to [facility] via careport. TCC asked to start auth as well. Discharge Planning: [facility]. Awaiting facility precert, clinical stability and medical clearance. Will continue to follow with Daniela and IBETH. Discharge Milestones and Delays Expected Date/Time: 10/13/2023 [...] (Days): 9 GMLOS: 5.2 Called Ameena May [phone] for consent for blood product for her [...] Sutton MD General Surgery PGY-3 Pager # [phone] Associated attestation - Seth Muller MD - [...] level of external bumper. Panfilo Muller MD [facility] Trauma, Surgical Critical Care, & General Surgery Division of Trauma Department of Surgery [facility] P Date: 10/04/2023 Location: [facility] OR Name: Luiza May, : 1955, Diagnosis Pre-op Diagnosis * Acute respiratory failure with hypoxia and hypercapnia (HCC) [J96.01, J96.02] Post-op Diagnosis * Acute respiratory failure with hypoxia and hypercapnia (HCC) [J96.01, J96.02] Procedures DIAGNOSTIC BRONCHOSCOPY, TRACHEOSTOMY, PEG TUBE 76017 - CA TRACHEOSTOMY PLANNED SEPARATE PROCEDURE ESOPHAGOGASTRODUODENOSCOPY WITH PERCUTANEOUS ENDOSCOPIC GASTROSTOMY TUBE PLACEMENT 26570 - CA EGD PERCUTANEOUS PLACEMENT GASTROSTOMY TUBE Surgeons * [...] Indications Hourly I&Os (Critical Care ONLY) 10/04/23 08 Site Assessment Clean;Skin intact 10/04/23 08 Collection Container Standard drainage bag 10/04/23 08 [...] 10/02/231199 External Catheter Length (cm) 65 cm 10/02/231199 Site Assessment Clean;Dry;Intact 10/02/23 1200 Status Low intermittent suction 10/02/23 1200 Drainage Appearance Clear 09/29/23 0800 Irrigant Sterile water 09/30/23 0000 Tube Feeding Vital 1.5 Kelvin 10/01/23 0800 Tube Feeding Method Continuous per pump 10/01/23 0800 Tube Feeding Rate 35 mL/hr 10/01/23 0800 Tubing Changed No 10/01/23 08 Free Water Intake (mL) 30 mL 10/01/23 1806 Tube Feed Intake (mL) 71 mL 10/01/23 1806 [REMOVED] NG/OG Tube Orogastric 12 Fr Center mouth (Removed) Placement Verification X-ray 10/03/23 1014 External Catheter Length (cm) 60 cm 10/03/23 1014 Site Assessment Clean;Dry;Intact 10/03/23 1014 Status Clamped 10/03/23 1014 Staff: Rx Specialist: Maren Goldman RN Relief Rx Specialist: Miroslava Berrios RN Scrub Person: Romana Hurst-[facility] Em[employer] Special Education Teacher Student: Meliza Garrison Findings: PEG tube 3cm [...] Free from restraint(s) (Restraint for Interference with Cashier Credit) Outcome: Not Progressing Problem: Safety - Non-violent/Interference with Medical Treatment Restraint Goal: Remains free of injury from restraints (Restraint for Interference with Cashier Credit) Outcome: Progressing Problem: Safety - Non-violent/Interference with Medical Treatment Restraint Goal: Remains free of injury from restraints (Restraint for Interference with Cashier Credit) Outcome: Completed Problem: Safety - Non-violent/Interference with Medical Treatment Restraint Goal: Free from restraint(s) (Restraint for Interference with Cashier Credit) Outcome: Completed Problem: Potential for Compromised Skin [...] Palliative Care Not Managing Any Medications Nursing: Care Home [facility] and [facility] Social Work: No Unmet Needs Spiritual Care: No Unmet Needs Pharmacy: No Unmet Needs Psychology/Psychiatry: No Unmet Needs Problem: Safety - Non-violent/Interference with Medical Treatment Restraint Goal: Free from restraint(s) (Restraint for Interference with Cashier Credit) Outcome: Not Progressing Flowsheets (Taken 09/30/20231999) Free from restraint(s) (restraint for interference with medical laboratory technical officer): Assess and document the continuing need for [...] injury from restraints (Restraint for Interference with Cashier Credit) Outcome: Progressing Flowsheets (Taken 09/30/20231999) Remains free of injury from restraints (restraint for interference with medical laboratory technical officer): Determine that other, less restrictive measures have been tried or would not be effective before applying the restraint Evaluate the patient's condition at the time of restraint application Inform patient/family regarding the reason for restraint Every 2 hours: Monitor safety, psychosocial status, comfort, nutrition and hydration Family Communication along with ICU LASER PRINT OPERATOR-JAMES Mildred Smith Number Called: [phone] Name of Designated Family Attendant Lodging Facilities: Ameena daughter I spoke with the individual listed above Family Attendant Lodging Facilities Updated on the Following: medical updates, plans [...] injury from restraints (Restraint for Interference with Cashier Credit) Outcome: Adequate for Discharge Goal: Free from restraint(s) (Restraint for Interference with Cashier Credit) Outcome: Adequate for Discharge Care Managment Initial Assessment Date: 09/27/2023 Patient Name: Luiza May : 1955 Patient Information Source of Information: Patient Attendant Lodging Facilities Name/Contact Information: Dex (s/o), Gene (son), Ameena (dtr) Cognition/Language: Confused at baseline Permission given to speak with patient financial foundations representative/caregiver as indicated: Confirmation of Payer with patient/family: Yes Payer Name: [place] [employer] Medicare [place]: No Confirmation of Primary Care Physician: Confirmed [...] Daily Living Prescription Coverage: Yes Pharmacy Used: [id number] - [place], [place] - [address] Medication Management: Medication dispenser Who assists with [...] Free from restraint(s) (Restraint for Interference with Cashier Credit) Outcome: Not Progressing Problem: Safety - Non-violent/Interference with Medical Treatment Restraint Goal: Remains free of injury from restraints (Restraint for Interference with Cashier Credit) Outcome: Progressing documented in this encounter [facility] 10-10-2023 Nurse Note Pt complaining of [...] assisted back to bed, RT notified via [employer] to come to room, RN place NIV mask over patients mouth/nose with sats increasing into 70's. GUSTABO Nixon emergently notified via secure chat to come to bedside. RT, PHYSICIAN CREDENTIALING SPECIALIST and Dr. Hurst came to bedside, patient [...] con't to monitor. documented in this encounter [facility] 10-07-2023 Consult note Associated Order (s): IP CONSULT TO PULMONOLOGY Pulmonary consult acknowledged. Pulmonary service to follow when patient is transferred out of ICU. Associated Order(s): IP CONSULT TO CARDIOLOGY [facility] [place] [facility] Cardiology /Electrophysiology Consult Note Reason for Consult/Chief Complaint: Heart failure Referring provider: Lauryn Mcdonald APRN Established admin secretary: None History of Present Illness: Luiza May [...] she has previously undergone LHC/ischemic workup at [place] which did not show significant coronary disease. [...] 0.9 % 250 mL infusion, 0.05-2 mg/kg/hr ([place]), Last Rate: Stopped (10/05/23 1030) norepinephrine, 1-100 mcg/min, Last Rate: 1 mcg/min (10/05/23 1032) Physical Examination: Vitals: 10/05/23 1145 10/05/23 1200 10/05/23 1215 10/05/23 1230 BP: 111/69 124/63 116/61 108/59 BP Location: Left arm Patient Position: Lying Pulse: 91 90 91 89 Resp: 20 20 21 21 Temp: 37.2 C (99 F) [...] deficits Laboratory Tests: Recent Labs 10/03/23 0424 10/04/237 10/05/23 0617 NA 142 140 142 K [...] Electronically Signed On 10-04-2023 14:32:11 EDT by Tion Pedraza Signed by: Tino Pedraza MD on 10/04/2023 2:32 PM Telemetry [...] Patient will likely follow up locally with [place] cardiology as she has done prior Cardiology to sign off Paul Mcbride MD Department of Cardiovascular Disease, Division of Heart Failure [facility] [place] 3:22 PM 10/05/23 Images from the original [...] ANGIOGRAM W AND/OR WO IV CONTRAST 07/26/2022 [facility] CT IMAGING Medications Prior to Admission: aspirin, [...] 0.9 % 250 mL infusion, 0.05-2 mg/kg/hr ([place]) norepinephrine, 1-100 mcg/min, Last Rate: 5 mcg/min [...] 20 min Stress: Stress Concern Present (07/26/2022) [place] of Occupational Health - Occupational Stress Questionnaire Feeling of Stress : Very much Social Connections: Moderately Isolated (07/26/2022) Social Connection and Isolation Panel [NHANES] Frequency of Communication with Friends and Family: More than three times a week Frequency of Social Gatherings with Friends and Family: More than three times a week Attends Nondenominational Services: Never Active Member of Clubs or [...] last 7 days Lab Units 10/03/2342310/02/2344110/01/23 0358 MAGNESIUM mg/dL 1.9 2.0 1.9 IMAGING: All imaging reviewed ASSESSMENT AND PLAN: This is a 67 y.o. female with acute respiratory distress with failed extubation - Add on for OR for open tracheostomy and peg tube placement tomorrow - Hold tube feeds at CT - Medical management per primary Patient discussed [...] (HCC) I personally supervised the resident or LASER PRINT OPERATOR/PAChandrikaC in the evaluation and development of a [...] MD Division of Trauma Department of Surgery [facility] Associated Order(s): IP CONSULT TO [...] ANGIOGRAM W AND/OR WO IV CONTRAST 07/26/2022 [facility] IMAGING Medications Prior to Admission: No [...] 20 min Stress: Stress Concern Present (07/26/2022) [place] of Occupational Health - Occupational Stress Questionnaire Feeling of Stress : Very much Social Connections: Moderately Isolated (07/26/2022) Social Connection and Isolation Panel [NHANES] Frequency of Communication with Friends and Family: More than three times a week Frequency of Social Gatherings with Friends and Family: More than three times a week Attends Nondenominational Services: Never Active Member of Clubs or [...] node. Report Dictated on Electronically Signed By: Kishan Sapp MD Electronically Signed Date/Time: 10/01/2023 2:12 [...] bowel loops appear to be colonic and [place]'s is a consideration. Follow-up recommended. Report Dictated on Electronically Signed By: Dary Hussein MD Electronically Signed Date/Time: 10/01/2023 9:02 AM EDT XR chest 1 view Narrative: [facility]LIZA [facility] 1955 [id number] Exam Date/Time: 10/01/2023 05:28 Procedure: XR CHEST [...] This note may have been dictated using [employer] Practice Edition 2.6 and/or [employer] Voice Recognition Feature. The document was proofread; however, unrecognized voice recognition information services tech errors may be present. Associated attestation - Elda Ledesma MD - 10/08/2023 4:21 PM EDT I saw and evaluated the patient and I agree with the assessment and the plan as documented by the resident below. Elda Ledesma MD Division of Trauma Department of Surgery [facility] Associated Order(s): IP CONSULT TO [...] - Per ICU: levetiracetam HX CVA/SDH - DIRECTOR OF PHYSIOTHERAPY SERVICES resided at home with s/o - PT/OT [...] crani/evacuation, anxiety, ETOH abuse, seizures, brought to [facility] for seizures however supratherapeutic dilantin level, hypercarbic requiring intubation and transfer to [facility] ICU level of care. Was successfully extubated however within a few hours with difficulty oxygenating requiring re-intubation. Palliative care consulted for goals of care Patient intubated, sedated on 9mg/hr midazolam, restrained on vent does awaken to answer simple yes and no questions before returning to [facility]. Without pain, CP, abdominal pain, breathing [...] Cerebral artery occlusion with cerebral infarction (CMS/HCC) ([facility]) COPD (chronic obstructive pulmonary disease) ([facility]) Hypertension Past Surgical History: Procedure Laterality Date APPENDECTOMY CHOLECYSTECTOMY COLONOSCOPY COLONOSCOPY CT CHEST ANGIOGRAM W AND/OR WO IV CONTRAST 07/26/2022 CT CHEST ANGIOGRAM W AND/OR WO IV CONTRAST 07/26/2022 [facility] IMAGING No family history on file. Unable to obtain family history due to patient intubated Allergies Allergen Reactions Tetanus Toxoid Swelling Review of Systems ROS: See palliative care ROS/ESAS below; All other systems were reviewed and are negative. Webster Symptom Assessment Score Webster Score Pain Score 0 Tiredness Score 8 [...] to pain Assessed by: provider. Social history: [place] status: no Marital status: Living status: with [...] loss Temples (temporalis), Hand (interosseous) Fluid Accumulation: Process Treater Strength: Not Performed Nutrition Assessment: Pt is a 73-erwi-fuc-female with PMH significant for COPD (2L), previous trach, HFpEF, stroke with residual dysphagia (previous PEG), breast cancer, HTN, depression, recent traumatic parafalcine SDH Aug 2023 presented to OSH 09/25 with GTC seizures. Found to have respiratory failure as well (pH 7.14, pCO2 137), placed on NIV and required intubation. Dilantin level reported to be subtherapeutic. Transferred to [facility] for further care. RD visited pt; she continues on vent, appeared agitated, RN entered room to address. Estimated Daily Nutrient Needs: Energy Requirements Based On: Kcal/kg Weight Used for Energy Requirements: [place] Weight for Energy Calculation (kg): 50 kg Total Energy Requirements (kcals/day): 25-30 kcals/kg = 4871-9659 kcals/day Weight Used for Protein Requirements: [place] Weight in Kg Used for Protein Requirements: [...] lb 2.8 oz) Weight Source: Bed Scale [place] Body Weight (lbs) (Calculated): 110 lbs [place] Body Weight (Kg) (Calculated): 50 kg % [place] Body Weight (Calculated): 144.7 % BMI (kg/m2) [...] Planning: Too soon to determine Jamila Wiley RD,LD,[facility] Contact: *[phone] or [employer] Chat Associated Order(s): IP WOUND CARE NURSE CONSULT TO EVAL Images from the original note were not included. [facility] CONSULT Note Luiza May [...] Seizure disorder on Dilantin was sent to [facility] from [facility] for management of Encephalopathy secondary to Acute [...] ANGIOGRAM W AND/OR WO IV CONTRAST 07/26/[address]22 [facility] CT IMAGING FAMILY HISTORY No family history [...] No drainage. Periwound fragile Left forearm: 1.0cmx2.5cmx0.1cm. [place] tissue noted. Scant serosang drainage. Periwound fragile [...] to follow Recommend to follow up at [facility] wound care center after hospital discharge. [...] 8:56 AM Kimberlee Winter RPh (available on [employer]) Associated Order(s): IP CONSULT TO NEUROLOGY INITIAL CONSULT NOTE. NEUROCRITICAL CARE Patient Name: Luiza May Patient : 1955 Acct: [id number] Date of Admission: 09/26/2023 Room/Bed: T2-215/T2-215 A PCP: Joy Stahl History of Present Ilness: 67 y.o. is a patient with the chief Complaint of: Seizure-like activity witnessed by She is a direct transfer from [facility] due to seizure-like activity witnessed by her . On review of [place] records, her was helping her go to the bathroom when her legs gave out and she fell to the floor with rhythmic shaking . She has known seizure history disorder was on Dilantin 100 mg every 8 hours. Dilantin level was measured at [facility] at 4.6. Per chart review she has [...] clarification of history however she did not moss picker the phone. Past Medical History: Past Medical History: Diagnosis Date Asthma CAD (coronary artery disease) Cerebral artery occlusion with cerebral infarction (CMS/HCC) ([facility]) COPD (chronic obstructive pulmonary disease) ([facility]) Hypertension Past Surgical History: Past Surgical History: Procedure Laterality Date APPENDECTOMY CHOLECYSTECTOMY COLONOSCOPY COLONOSCOPY CT CHEST ANGIOGRAM W AND/OR WO IV CONTRAST 07/26/2022 CT CHEST ANGIOGRAM W AND/OR WO IV CONTRAST 07/26/[address]22 [facility] CT IMAGING Home Medications: Prior to Admission [...] 2 mg, 2 mg, Oral, Daily, Yuridia Ignacio, DO atorvastatin (Lipitor) tablet 40 mg, 40 mg, Oral, Nightly, Yuridia Ignacio, DO bisacodyl (Dulcolax) suppository 10 mg, 10 mg, Rectal, Daily PRN, Yuridia Ignacio, DO DULoxetine (Cymbalta) DR capsule 60 mg, 60 mg, Oral, Daily, Yuridia Ignacio, DO enoxaparin (Lovenox) syringe 40 mg, 40 mg, SubCUTAneous, Daily, Yuridia Ignacio, DO folic acid (Folvite) tablet 1 mg, 1 mg, Oral, Daily, Yuridia Ignacio, DO norepinephrine (Levophed) infusion 16 mg in 0.9 % sodium chloride 250 mL (Zgv-Gbwvgd-Olujc) (premix), 1-100 mcg/min, IntraVENous, Continuous, Yuridia Ignacio, [...] 391 ms QTC Interval 463 ms P [place] 72 degrees QRS [place] 60 degrees T Wave [place] 65 degrees CA Interval 111 ms ASSESSMENT / PLAN / SUGGESTIONS : Syncope with collapse and witnessed seizure activity-no seizure activity since arriving to the ER, given 970 mg Dilantin x 1,Keppra 1g, Versed drip History of seizure disorder on Dilantin-her Dilantin level is 4.6. She was given 970 mg Dilantin x 1 at [place] ER Subtherapeutic Dilantin level-will recheck tomorrow AM [...] Care / stroke Attending Patient transferred from [place], seizures however last evening , Reported as possible status but she arrived to ICU awake and interactive not actively having seizures This occurred in the setting in which she has long standing history of seizure disorder and is on PNT , presenting to welda with suboptimals PNT level , Current level [...] this patient's care. documented in this encounter [facility] 10-07-2023 Note OCCUPATIONAL THERAPY Attempted OT services however due to recent trach/PEG placement referred POC to OTR for possible re evaluation. Will continue to monitor for continued OT treatment. [facility] 10-05-2023 Note [facility] 10-05-2023 Procedure note Associated Ord er(s): Bronchoscopy [...] documented as signed by this procedure note Clerical Coordinator(s): N/A Candle Making Supervisor: Dr. Decker The attending physician was physically [...] documented as signed by this procedure note Clerical Coordinator(s): Lauryn Mcdonald CNP No supervision required Associated [...] documented as signed by this procedure note Clerical Coordinator(s): N/A No supervision required The attending physician [...] from the original note were not included. [facility] [address] [place] [id number] ROUTINE EEG REPORT Patient Name: Luiza May : 1955 Date of Study: 09/26/2023 Duration Recorded: 30 minutes EEG#: [id number] MIDDLE STITCHER: Isabel Chow THelio PROVIDER REQUESTING STUDY: Charlene Henderson MD REASON FOR EXAM: Evaluate for seizures DIAGNOSIS TAG: Transient Neurologic Symptoms (TNS) HISTORY: Luiza May is a 67 y.o. female with history of OPD, TIO, ch respiratory failure on home oxygen and home BIPAP, seizure disorder on dilantin. She is a direct transfer from [facility] due to seizure-like activity witnessed by her . On review of [place] records, her was helping her go to the bathroom when her legs gave out and she fell to the floor with rhythmic shaking . She has known seizure history disorder was on Dilantin 100 mg every 8 hours. Dilantin level was measured at [facility] at 4.6. Per chart review she has [...] clarification of history however she did not moss picker the phone. MEDICATIONS: Current Facility-Administered Medications Medication Dose Route Frequency Provider Last Rate Last Admin acetaminophen (Tylenol) solution 1,000 mg 1,000 mg Oral q8h PRN Yuridia Pierre DO [Held by provider] ARIPiprazole (Abilify) tablet 2 mg 2 mg Oral Daily Yuridia Pierre DO atorvastatin (Lipitor) tablet 40 mg 40 mg Oral Nightly Yuridia Pierre DO bisacodyl (Dulcolax) suppository 10 mg 10 mg Rectal Daily PRN Yuridia Pierre DO budesonide (Pulmicort) 0.5 MG/2ML nebulizer solution 0.5 mg 0.5 mg Nebulization Daily Marisela Fernandez MD DULoxetine (Cymbalta) DR capsule 60 mg 60 mg Oral Daily Yuridia Pierre DO enoxaparin (Lovenox) syringe 40 mg 40 mg SubCUTAneous Daily Yuridia Pierre DO folic acid (Folvite) tablet 1 mg [...] in 0.9 % sodium chloride 250 mL (Jyf-Obzkmv-Eqjkh) (premix) 1-100 mcg/min IntraVENous Continuous Yuridia Ignacio, [...] 100 mg 100 mg Oral TID Chester Rubiing, DO polyethylene glycol (PEG) 3350 (Miralax) packet [...] study with video was carried out at [facility]. Scalp electrodes were positioned in person by an registered radiologic technologist, following patient education, according to the 10-20 International system of electrode placement and maintained for integrity and quality of the recording. EEG data with video was recorded continuously and digitally stored. The registered radiologic technologist reviewed all automated detections and manual [...] through a skull defect) superimposed on a dukpuamr-uh-dgdelc global encephalopathy. Escobar Kumar MD, PHD Epilepsy Attending documented in this encounter [facility] 10-05-2023 Note Referral placed to [facility] [place] [facility] per TCC request. Await review and response regarding ability to accept. TCC notified. [facility] 10-05-2023 Hospital Discharge instructions Analy Ramirez [...] Gene [place] Mobile Relation: Son Preferred language: Salvadorean Powder Nipper needed? No Past Surgical History: Past Surgical History: Procedure Laterality Date APPENDECTOMY CHOLECYSTECTOMY COLONOSCOPY COLONOSCOPY CT CHEST ANGIOGRAM W AND/OR WO IV CONTRAST 07/26/2022 CT CHEST ANGIOGRAM W AND/OR WO IV CONTRAST 07/26/[address]22 [facility] CT IMAGING Immunization History: Immunization History Administered [...] Minimal assistance Toileting Minimal assistance Feeding Independent Reviewer Sales Minimal assistance Med Delivery yes Wound Care Documentation and Therapy: Wound/Incision 09/26/23 Traumatic Lip Left;Upper (Active) Wound Image 09/26/23 14[address] [place] 10/05/23 1200 Wound Length (cm) 0.8 cm [...] Assessment Score: @READMISSIONRISKDETAILS@ Discharging to Facility/ Agency [place] [address] Dialysis Facility (if applicable) Name: Address: Dialysis Schedule: Phone: Fax: Cushion Builder/Parking Lot Supervisor signature: ICIAN SECTION Prognosis: good Condition at [...] H&P PHYSICIAN SIGNATURE: documented in this encounter [facility] 10-04-2023 Note [facility] 10-04-2023 Note [facility] 10-03-2023 Note [facility] 09-30-2023 Note PHYSICAL THERAPY [facility] Name/MRN: Luiza May ([id number]) Date: 09/30/2023 Attempted PT evaluation, pt was non arousable despite many techniques to elicit participation. Continue as screens and evaluate as appropriate. Lisa Deluna [facility] 09-29-2023 Miscellaneous Notes Patient has been [...] Xiomara Abad LPN. documented in this encounter [facility] 09-28-2023 Note Speech-Redeye Gunner ology Received orders for a speech evaluation and treat. Patient is currently intubated and unable to participate. Completed orders and await re-consult 12- 24 hours post-extubation. Vianca Sharif MA CCC-GREY TENDER [facility] 09-28-2023 Note [facility] 09-27-2023 Miscellaneous Notes Patient has been identified [...] Bhavana Garza LPN. documented in this encounter [facility] 09-26-2023 Note [facility] 09-26-2023 Note [facility] 09-26-2023 History and physical note Images from [...] Seizure disorder on Dilantin was sent to [facility] from [facility] for management of Encephalopathy secondary to Acute on chronic Hypoxic Hypercapnic respiratory failure and what seem to be a break through seizure. Patient was at home walking in to the bathroom when she reportedly experienced rhythmical shaking and tonic-clonic posturing that lasted less than 10min, witnessed by her fiance. They called EMS and was eventually taken to [facility] hospital. She remained with altered mentation after the incidence.Her mental status didn't improve over the night and her ABG noted significant Acidemia with Hypercarbia, PH 7.14 and PCO2 137. Thus patient was intubated for respiratory support and protection of airway. She was referred to [facility] for further management. Past Medical History: Diagnosis Date Asthma CAD (coronary artery disease) Cerebral artery occlusion with cerebral infarction (CMS/HCC) (HCC) COPD (chronic obstructive pulmonary disease) (HCC) Hypertension Past Surgical History: Procedure Laterality Date APPENDECTOMY CHOLECYSTECTOMY COLONOSCOPY COLONOSCOPY CT CHEST ANGIOGRAM W AND/OR WO IV CONTRAST 07/26/2022 CT CHEST ANGIOGRAM W AND/OR WO IV CONTRAST 07/26/2022 [facility] CT IMAGING No family history on file. [...] 20 min Stress: Stress Concern Present (07/26/2022) [employer] [place] [employer] - Occupational Stress Questionnaire Feeling of Stress : Very much Social Connections: Moderately Isolated (07/26/2022) Social Connection and Isolation Panel [NHANES] Frequency of Communication with Friends and Family: More than three times a week Frequency of Social Gatherings with Friends and Family: More than three times a week Attends Nondenominational Services: Never Active Member of Clubs or [...] Normal [] Scar/Lesion/Mass Inspection of teeth/lips/gums Dentition: [][place] Teeth []Dentures Lips/Gums: []Intact []Lesion Present Mucosa: [][place] [x]Moist []Dry Neck: External Appearance Overall Appearance: [...] ABGs: No results for input(s): PHART , CXG9GPD , PO2ART , GWQ2LAO , SO2ART , R1ZTINNM in the last 72 hours. Lactic Acid: [...] seizure disorder on dilantin, recurrent admissions to [facility] in the past for ac on ch hypercarbic respiratory failure, was admitted to [facility] ICU for recurrent seizure x2 and ac on ch hypercarbic respiratory failure with pH 7/01 and PCO2:130 that did not respond to NIV and was intubated. Now care transferred to [facility] ICU for further management of recurrent [...] Conjunctiva []Injected [x]Non-Injected Pinnae []Normal []Other Dentitian [][place] Teeth []Dentures []Poor dentition []Edentulous Oral Mucosa [][place] []Moist []Dry Oral ETT [x]Present []Absent Neck: [...] sec [place] ([]RUE []RLE []LUE []LLE) Neurologic: [place] []Yes []No Corneal reflexes []Present []Absent Plantar [...] new evidence emerges. documented in this encounter [facility] 09-23-2023 Note HNO ID: [id number] Author: JOANIE BENITEZ PA-C Service: ? Author Type: Physician Clerical Coordinator Type: Progress Notes Filed: 09/25/2023 12:43 Note [...] it was advised that patient return to tx for short-term mcsyey-cw-icvaq she did not do. Past medical history prior to most recent episode is significant for fall with head trauma, ultimately requiring right craniotomy for subdural hematoma evacuation (02/08/2022) at [facility]. On CPAP for TIO, states she has [...] Cancer Mother R/T LUNG CANCER Heart Father [place] Cancer Sister LUNG Social History Tobacco Use [...] wheezing, rhonchi, rales (more content not included)... [facility] 09-23-2023 History of Present illness Narrative CC: [...] it was advised that patient return to tx for short-term uqfurn-gn-ldxnj she did not do. Past medical history prior to most recent episode is significant for fall with head trauma, ultimately requiring right craniotomy for subdural hematoma evacuation (02/08/2022) at [facility]. On CPAP for TIO, states she has [...] Cancer Mother R/T LUNG CANCER Heart Father ME Cancer Sister LUNG Social History Tobacco Use [...] Reinforced to patient that both Joan Elizabeth, TELETYPESETTER (the provider she usually sees) and myself [...] recent in 08/28 - was admitted to [facility] for monitoring. Never followed up with neurosurgeon [...] Joanie Benitez PA-C documented in this encounter [facility] 09-22-2023 Miscellaneous Notes Pt scheduled for [...] Gisell Schumacher RN. documented in this encounter [facility] 09-13-2023 Miscellaneous Notes Patient has been [...] Ginny Moreland RN. documented in this encounter [facility] 09-03-2023 Miscellaneous Notes Patient has been [...] name and date of : Yes, Provider ElizabethJoan Date 09/03/2023 Time 12:03 pm Pharmacy phones [...] you. Nelly Herrera. documented in this encounter [facility] 08-19-2023 Miscellaneous Notes Duplicate request. Lisette Corona LPN documented in this encounter [facility] 08-19-2023 Miscellaneous Notes Patient has been [...] Carmen Mendosa LPN. documented in this encounter [facility] 08-17-2023 Note HNO ID: [id number] Author: JOANIE BENITEZ PA-C Service: ? Author Type: Physician Clerical Coordinator Type: Progress Notes Filed: 08/18/2023 10:06 Note Text: CC: Patient presents with: ER F/U: [facility] 2.1.24; fall HPI Luiza May is a 67 year old female who presents today with her significant other, Nasim, for hospital follow-up and for scalp staple removal (her brother Antelmo joined towards the end of visit). Facility: [facility], transferred to [facility] Date of visit: 08/05/2023-08/11/2023 Reason for visit: Head injury, unwitnessed fall Hospital course: Pt was initially evaluated at [facility] on 08/05/23 for head injury following unwitnessed fall (associated w/ altered mental status the day prior), Patient typically sleeps with CPAP at night, however she was sleeping in a separate room-did not use her CPAP that evening. CT obtained at [facility] ED confirmed SDH so patient was transferred to [facility] for trauma and neurosurgery consult.. Per EMS, she struck her head without any report of loss of consciousness. The duration of hospital stay was spent being monitored in ICU. No surgical intervention was performed. Past medical history significant for fall with head trauma, ultimately requiring right craniotomy for 7 dural hematoma evacuation (02/08/2022) at [facility]. Diagnosis: Subdural hematoma Discharge: 08/11/23, was not [...] Cancer Mother R/T LUNG CANCER Heart Father ME Cancer Sister LUNG Social History Tobacco Use Smoking status: Former Packs/day: 1.00 Years: 18.00 Additional pack years: 0.00 Total pack years: 18.00 Types: Cigarettes Quit date: 04/06/2006 Years (more content not included)... [facility] 08-17-2023 History of Present illness Narrative CC: Patient presents with: ER F/U: [facility] 2.07.28; fall HPI Luiza May is a 67 year old female who presents today with her significant other, Nasim, for hospital follow-up and for scalp staple removal (her brother Antelmo joined towards the end of visit). Facility: [facility], transferred to [facility] Date of visit: 08/05/2023-08/11/2023 Reason for visit: Head injury, unwitnessed fall Hospital course: Pt was initially evaluated at [facility] on 08/05/23 for head injury following unwitnessed fall (associated w/ altered mental status the day prior), Patient typically sleeps with CPAP at night, however she was sleeping in a separate room-did not use her CPAP that evening. CT obtained at [facility] ED confirmed SDH so patient was transferred to [facility] for trauma and neurosurgery consult.. Per EMS, she struck her head without any report of loss of consciousness. The duration of hospital stay was spent being monitored in ICU. No surgical intervention was performed. Past medical history significant for fall with head trauma, ultimately requiring right craniotomy for 7 dural hematoma evacuation (02/08/2022) at [facility]. Diagnosis: Subdural hematoma Discharge: 08/11/23, was not [...] Cancer Mother R/T LUNG CANCER Heart Father [place] Cancer Sister LUNG Social History Tobacco Use [...] ~1 inch, scant amount of dried blood/crusting. Arturo removed without complication. Neck: negative Lungs: Lungs [...] Vaccine(1) due on 03/05/2023 Covid-19 Vaccine(4 - 2022- season) due on 03/05/2023 Advance Directive Discussion [...] Joanie Benitez PA-C documented in this encounter [facility] 08-13-2023 Note HNO ID: [id number] Author: ELI TAYLOR MA Service: ? Author Type: Scarfing Machine Operator Type: Progress Notes Filed: 08/13/2023 08:40 Note Text: POPULATION HEALTH NAVIGATION OUTREACH Action/FYI TCM Hospital Discharge PCP Follow up. TCM Eligible until 08/24/23. August 13, 2023 8:40 AM Pt has been scheduled by office for tcm follow up Appointments for Next 60 Days Date Time Provider Location Dept Phone 08/17/2023 7:40 AM JOANIE BENITEZ [facility] [phone] 08/23/2023 10:[address] [facility] [place] [facility] [phone] 08/23/2023 11:00 AM [facility] [place] [facility] [phone] Patient Identified by Name and : NO [facility] 08-11-2023 Note HNO ID: [id number] Author: ROSALVA DUMONT MA Service: ? Author Type: Scarfing Machine Operator Type: Progress Notes Filed: 08/11/2023 11:57 Note Text: POPULATION HEALTH NAVIGATION OUTREACH Action/FYI TCM TCM Hospital Discharge PCP Follow up. TCM Eligible until 08/24/23. Left VM; no MyChart Patient Identified by Name and : NO Outreach Outcome/Action Unable to reach patient: Left message Did you use a PCP flex slot to schedule this appointment? N/A Reason for Outreach HCC or suspected condition Payer: Payor: [employer] / Plan: [employer] MEDICARE ADVANTAGE HMO / Product Type: HMO [...] Dumont MA August 11, 2023 11:52 AM [facility] 08-11-2023 History of Present illness Narrative POPULATION HEALTH NAVIGATION OUTREACH Action/FYI TCM [facility] Hospital Discharge PCP Follow up. TCM Eligible until 08/24/23. Left VM; no MyChart Patient Identified by Name and : NO Outreach Outcome/Action Unable to reach patient: Left message Did you use a PCP flex slot to schedule this appointment? N/A Reason for Outreach HCC or suspected condition Payer: Payor: [employer] / Plan: [employer] MEDICARE ADVANTAGE HMO / [...] Vaccine(1) due on 03/05/2023 Covid-19 Vaccine( - 2022- season) due on 03/05/2023 Advance Directive Discussion Never done Depression Assessment due on 07/05/2023 Navigation Signature: Rosalva Dumont MA August 11, 2023 11:52 AM TCM Home Visit Referral Source of Stratification: [facility] Admission Status: Discharged Readmission Risk Score: 35 SARA Score: 7 Patient meets program referral criteria: Yes Program referral criteria met: - Readmission risk score greater than or equal to 35-39% Patient qualifies for High Risk TCM Home Visit. Discussed High Risk TCM Home Visit Program with patient: Patient - Does not accept due to:Patient Declined Facundo Rowe RN August 11, 2023 9:59 AM TRANSITIONAL CARE MANAGEMENT (TCM) COMMUNITY MONITORING PROGRAM Provider Action/FYI: Navigation Team Please assist with scheduling TCM Hospital Discharge PCP Follow up. TCM Eligible until 08/24/23. Thank you Spoke with patient and she stated she is feeling better. Denies new or worsening symptoms. Denies headaches or blurry vision. [place] WNL. Denies drainage or fever. Patient gets [...] Network Status: In-Network Discharge Pt discharged from [place] on 08/10/23. Admitted for: Subdural hematoma (HCC) Contact made with patient: Yes Hi my name is Facundo Rowe RN and I am calling from the [facility] on behalf of your PCP, Maryam [...] like to speak with a social work truck driver teamster to help give you support for any [...] I will send your request to a radiology scheduler who will contact and assist you with that appointment. This will give you an opportunity to ask any questions or address any concerns you may have with your PCP. Inform the patient that if they have any questions or concerns prior to that appointment, to call their PCP's office right away. ACTION TAKEN: Patient desires an appointment - Routed to [facility] [[id number]] for scheduling telehealth visit (telephonic, virtual visit, [...] Ordered -: No documented in this encounter [facility] 08-11-2023 Note HNO ID: [id number] Author: FACUNDO ROWE RN Service: ? Author Type: Registered Nurse Type: Progress Notes Filed: 08/11/2023 10:11 Note Text: TCM Home Visit Referral Source of Stratification: [facility] Admission Status: Discharged Readmission Risk Score: 35 SARA Score: 7 Patient meets program referral criteria: Yes Program referral criteria met: - Readmission risk score greater than or equal to 35-39% Patient qualifies for High Risk TCM Home Visit. Discussed High Risk TCM Home Visit Program with patient: Patient - Does not accept due to:Patient Declined Facundo Rowe RN August 11, 2023 9:59 AM TRANSITIONAL CARE MANAGEMENT (TCM) COMMUNITY MONITORING PROGRAM Provider Action/FYI: Navigation Team Please assist with scheduling TCM Hospital Discharge PCP Follow up. TCM Eligible until 08/24/23. Thank you Spoke with patient and she stated she is feeling better. Denies new or worsening symptoms. Denies headaches or blurry vision. [place] WNL. Denies drainage or fever. Patient gets [...] Network Status: In-Network Discharge Pt discharged from [place] on 08/10/23. Admitted for: Subdural hematoma (HCC) Contact made with patient: Yes Hi my name is Facundo Rowe RN and I am calling from the [facility] on behalf of your PCP, Maryam [...] like to speak with a social work truck driver teamster to help give you support for any [...] I will send your request to a radiology scheduler who will contact and assist you with that appointment. This will give you an opportunity to ask any questions or address any concerns you may have with your PCP. Inform the patient that if they have any questions or concerns prior to that appointment, to call their PCP's office right away. ACTION TAKEN: Patient desires an appointment - Routed to [facility] [[id number]] for scheduling telehealth visit (telephonic, virtual visit, [...] your hands re (more content not included)... [facility] 08-11-2023 Note HNO ID: [id number] Author: SETH CHAWLA RPh Service: ? Author [...] . Summary: -Pt discharged from [facility] on 08/10/23. -Medication review done: Partial [...] BP Readings: Date: BP: 08/05/2023 151/97 07/14/2023 12005/06/2023 Potassium Date Value Ref Range Status 08/10/2023 [...] Encounter BP Readings: Date: BP: 08/05/2023 151/97 07/14/202305/06/[address] (PROTONIX) 40 mg tablet Take [...] for up to 90 days. Preferred pharmacy: [place] [address] - [address] [phone] [facility] [address] Estimated Creatinine Clearance: 78.3 mL/min (based on SCr of 0.63 mg/dL). Estimated Glomerular Filtration Rate (mL/min/1.73m?) Date Value 08/10/2023 97 eGFR- (no units) Date Value 11/16/2020 >60 Additional follow up: Next 5 Appointments Date and Time Provider Department Dept Phone 08/23/2023 10:[address] [facility] [phone] 08/23/2023 11:[address] [facility] [phone] Interventions Made: None Pharmacist Recommendations Made None Care Coordination: None at this time Time spent on patient: 15-30 (more content not included)... [facility] 08-11-2023 Note Patient Outreach (AM BCMG) -------- LUIZA MAY ([id number]) 1955 F Date Time Provider Department 08/11/23 FACUNDO ROWEG During your visit today, we recorded the following information about you: Facundo Rowe RN 08/11/2023 10:11 AM Signed TCM Home Visit Referral Source of Stratification: [facility] Admission Status: Discharged Readmission Risk Score: 35 SARA Score: 7 Patient meets program referral criteria: Yes Program referral criteria met: - Readmission risk score greater than or equal to 35-39% Patient qualifies for High Risk TCM Home Visit. Discussed High Risk TCM Home Visit Program with patient: Patient - Does not accept due to:Patient Declined Facundo Rowe RN August 11, 2023 9:59 AM [...] Network Status: In-Network Discharge Pt discharged from [place] on 08/10/23. Admitted for: Subdural hematoma (HCC) Contact made with patient: Yes Hi my name is Facundo Rowe RN and I am calling from the [facility] on behalf of your PCP, Maryam [...] like to speak with a social work truck driver teamster to help give you support for any [...] I will send your request to a radiology scheduler who will contact and assist you with that appointment. This will give you an opportunity to ask any questions or address any concerns you may have with your PCP. Inform the patient that if they have any questions or concerns prior to that appointment, to call their PCP's office right away. ACTION TAKEN: Patient desires an appointment - Routed to [facility] [[id number]] for scheduling telehealth visit (telephonic, virtual visit, or Facetime) within 7 days of discharge with PCP care team. Indicate hospital follow-up appointment needed within 7 days in Provider/FYI box. End Outreach. Your doctor would like us to remind you of the recommendations regarding the coronavirus (Covid19) outbreak: Avoid publi (more content not included)... [facility] 08-11-2023 Note Patient Outreach (PH RXRF) -------- LUIZA MAY ([id number]) 1955 F Date Time Provider Department 08/11/23 SETH CHAWLA During your visit today, we recorded the following information about you: Seth Chawla formerly [facility] 08/11/2023 11:59 AM Signed TRANSITION CARE MANAGEMENT [...] . Summary: -Pt discharged from [facility] on 08/10/23. -Medication review done: Partial [...] for up to 90 days. Preferred pharmacy: [facility] [place] [address] - [address] - [phone] [address] [facility] [address] Estimated Creatinine Clearance: 78.3 mL/min (based on SCr of 0.63 mg/dL). Estimated Glomerular Filtration Rate (mL/min/1.73m?) Date Value 08/10/2023 97 eGFR- (no units) Date Value 11/16/2020 >60 Additional follow up: Next 5 Appointments Date and Time Provider Department Dept Phone 08/23/2023 10:[address] [facility] [phone] 08/23/2023 11:00 AM [place] (more content not included)... [facility] 08-10-2023 Note HNO ID: [id number] Author: EMMA DEVLIN RN Service: Care Management [...] home. SIGNATURE: Emma Devlin RN PATIENT NAME: Liuza May DATE: August 10, 2023 TIME: 3:24 PM CONTACT #: [phone] [facility] 08-10-2023 Note HNO ID: [id number] Author: EMMA DEVLIN RN Service: Care Management Author Type: Registered Nurse Type: Care Mgt Progress Note Filed: 08/10/2023 15:23 Note Text: CARE MANAGEMENT PROGRESS NOTE SERVICE DATE: 08/10/2023 SERVICE TIME: 3:21 PM LOS: 5 days IMM Follow Up Copy Given: Yes Copy given to:: Patient Method: In Person Patient declined copy of letter stating she understands her rights and is agreeable to discharge. [place] of Choice Given: No Reason Not Given: [...] 10, 2023 TIME: 3:21 PM PAGER/CONTACT #: [phone] [facility] 08-10-2023 Note HNO ID: [id number] Author: ANDRE MARTINEZ, Research Coordinator Service: ? Author Type: Research Type: Progress Notes Filed: 08/10/2023 15:21 Note Text: -------- Summary: IRB #[id number]: Traumatic Brain Injury Patient Registry - Consent Discussion -------- Study #[id number]: Traumatic Brain Injury Patient Registry PI: Jessika Nicole MD Visit: Consent Visit Date: August 10, 2023 Patient Name: Luiza May Date of : 1955 MRN/E #: [id number] Patient followed up with for #23-1248: Traumatic [...] family. Andre Martinez, Research Coordinator Pager # [phone] [facility] 08-10-2023 Note HNO ID: [id number] Author: CRYS HAYWOOD PA-C Service: General Surgery Author Type: Physician Clerical Coordinator Type: Progress Notes Filed: 08/10/2023 09:07 Note Text: Trauma Surgery Progress Note SERVICE DATE: 08/10/2023 Trauma Service Pager: For questions or concerns Mon-Fri 6a-5p please page [phone]. After 5pm and on Weekends and Holidays, please page [phone] if in ICU or [phone] if on RNF. SUBJECTIVE: NAEON. Patient denies [...] Date 08/09/23699 - 08/10/2365808/10/23699 - 08/11/23658 Shift 1488-0800 3101-4127 6377-5033 24 Hour Total 7486-3729 6029-6883 7889-7636 24 Hour Total INTAKE PO 540 240 [...] Hospital Problems Diagnosis Date Noted Subdural hematoma ([facility]) 08/05/2023 Acute on chronic respiratory acidosis ([facility]) 08/07/2023 Hypophosphatemia 08/07/2023 Hypomagnesemia 08/07/2023 Hypokalemia 08/07/2023 Fall 08/06/2023 Scalp laceration, initial encounter 08/06/2023 Chronic hypercapnic respiratory failure ([facility]) 08/19/2022 COPD (chronic obstructive pulmonary disease) ([facility]) 08/11/2016 Assessment: 67 year old female s/p mechanical GLF on 08/05/2023 (Level II) Imaging performed: 08/05/2023 - CT HNTL, CXR, PXR, XR L shoulder 08/06/2023 - CXR, repeat CT brain Traumatic Injuries: Small volume acute parafalcine subdural hemorrhage without mass effect Scalp laceration Operations/Procedures: 1. 08/05/2023 - Scalp laceratio (more content not included)... [facility] 08-09-2023 Note HNO ID: [id number] Author: ANDRE MARTINEZ, Research Coordinator Service: ? Author Type: Research Type: Progress Notes Filed: 08/10/2023 15:08 Note Text: -------- Summary: IRB#[id number]: Traumatic Brain Injury Patient Registry - Consent Discussion -------- Study #[id number]: Traumatic Brain Injury Patient Registry PI: Jessika Nicole MD Visit: Consent Visit Date: August 09, 2023 Patient Name: Luiza May Date of : 1955 MRN/E #: [id number] Patient approached for consideration for #[id number]: Traumatic Brain Injury Patient Registry. Patient stated now was not a good time to discuss the study. Research will follow up at another time. Andre Martinez, Research Coordinator Pager # [phone] [facility] 08-09-2023 Note HNO ID: [id number] Author: CHRYSTAL LEWIS, RN Service: Care Management Author Type: Registered [...] [place] Discharge Planning Patient Goal(s): General wellness [place] Explained: not yet Are you interested in bedside delivery of your medications? No Discharge Planning Participant(s): Spouse/significant other Patient/Family Comments: Caregiver Assessment: Caregiver is ready, willing and able to meet the patient's needs as recommended by the inter-professional team: Yes Name of Caregiver: StephanieIrish Dex Transport at Discharge: Transportation Arrangements: Car Needs [...] 09, 2023 TIME: 10:50 AM CONTACT #: [phone] [facility] 08-09-2023 Note HNO ID: [id number] Author: SPENCER JIMENEZ MD Service: General Surgery [...] August 09, 2023 TIME: 3:20 PM Pager: [phone] -------- Trauma Surgery Progress Note SERVICE DATE: 08/09/2023 Trauma Service Pager: For questions or concerns Mon-Fri 6a-5p please page [phone]. After 5pm and on Weekends and Holidays, please page [phone] if in ICU or [phone] if on RNF. SUBJECTIVE: NAEON. On NC [...] kg/m? O2 Therapy: Nasal Cannula IANDO: Date 08/08/23 07 - 08/09/23 0659 08/09/23 0700 - 08/10/23 0659 Shift 5892-4800 9032-3663 8302-3788 24 Hour Total 2306-1380 2079-5005 2258-8602 24 Hour Total INTAKE PO 360 180 240 780 PO 360 180 240 780 Shift Total 360 180 240 780 OUTPUT Urine [id number] Output ( External Collection Device 08/06/23 0730 [facility]) 1900 1900 Shift Total 1899 1899 Weight (kg) 70.7 [...] 0356 08/08/23201708/08/23 1041 08/08/23 0219 08/07/23 1520 08/07/23 0218 08/06/23201008/06/232010 NA 143 -- -- 143 -- [...] bilat. No w (more content not included)... [facility] 08-08-2023 Note HNO ID: [id number] Author: JET SAMANO, FINESSE Service: Nursing Author Type: Registered Nurse Type: Nursing Progress Note Filed: 08/08/2023 10:30 Note Text: Other: Attempted IV x2. One by us. Dr. Nielsen aware [facility] 08-08-2023 Note HNO ID: [id number] Author: SPENCER JIMENEZ MD Service: General Surgery [...] August 08, 2023 TIME: 11:37 AM Pager: [phone] -------- Trauma Surgery Progress Note SERVICE DATE: 08/08/2023 Trauma Service Pager: For questions or concerns Mon-Fri 6a-5p please page [phone]. After 5pm and on Weekends and Holidays, please page [phone] if in ICU or [phone] if on RNF. SUBJECTIVE: NAEON. Doing well [...] Cannula IANDO: Date 08/07/23699 - 08/08/2365808/08/23699 - 08/09/2359 Shift 1288-4646 5419-3924 1225-6793 24 Hour Total 1210-1692 3555-1044 8840-7689 24 Hour Total INTAKE PO 340 360 120 820 PO 340 360 120 820 IV 854 854 Volume (mL) (potassium phosphate 45 mmol in NaCl 0.9% 500 mL) 500 500 Volume (mL) (magnesium sulfate in sterile water 4 g in 100 mL iv piggyback) 100 100 Volume (mL) (dextrose 5% in NaCl 0.9% iv infusion) 254 254 Shift Total 1194 648 250 5883 OUTPUT Urine 100 222 804 0265 Output ( External Collection Device 08/06/23 0730 [facility]) 100 906 578 8027 # of BMs Number of BMs 1 x 1 x Shift Total 100 996 685 7986 Weight (kg) 64.9 64.9 70.7 70.7 70.7 [...] -- -- -- (more content not included)... [facility] 08-07-2023 Note HNO ID: [id number] Author: ?, ?, ? Service: ? Author Type: Emd Special Education Teacher Type: Plan of Care Filed: 08/07/2023 16:46 Note Text: PHARMACY MEDICATION REVIEW Patient Name: Luiza May : 1955 The following medications were updated within the [facility] medication list: Medications ADDED to [facility] medication list albuterol (PROVENTIL) 2.5 mg /3 mL (0.083 %) nebulizer solution OTHER Yes Yes RX filled on 06/30/2023 for 180ml. Pt. states she uses PRN. ipratropium-albuterol (DUONEB) 0.5 mg-3 mg(2.5 mg base)/3 mL nebu OTHER Yes Yes RX filled on 06/30/2023 for 180ml. Pt. states she uses PRN. Medications CHANGED on [facility] medication list hydrOXYzine pamoate (VISTARIL) 25 mg capsule OTHER No No Sig: Take 1 capsule by mouth three times a day as needed for anxiety. Pt. states this medications is having little effect on her and she placed it on hold until she can speak to her physician about the medication. Medications REMOVED from [facility] medication list phenytoin (DILANTIN) 100 mg/4 mL susp Auto Not taken per pt. Additional comments: I was able to talk with pt. about her home medications. She verified the 19 medications recorded below on the [employer] list. I have added 2 medications to the [employer] list and noted a change to 1 medication per pt. interview. I have removed 1 medication (see above). Pt. states she uses [facility] pharmacy associated with [facility] . Most all her medications were found filled at [facility]. Required follow up actions for nursing: Medication history completed by Historian. No nursing follow up required. The below information represents the best possible medication history: Yes Medication history completed by: Emd Special Education Teacher: Kishan Machado ([employer]) Source of history: Patient: Reliability of source: Appears reliable, clearly identified: Medication name, Medication dose, Medication route, and Medication frequency and Pharmacy records: [facility] Medication nonadherence identified: Unable to assess Reconciliation completed: No, pharmacist not yet reviewed Patient interested in Bedside Delivery Services or using OP Pharmacy at discharge? No Preferred outpatient pharmacy: [facility] [place] [address] [address] [facility] [address] - [phone] Allergies: Entex [Phenylephrin* Intolerance Tetanus Vaccines An* [...] up to 90 days. Facility-Administered Medications: None Kishan Machado ([employer]) phone [phone] 08/07/2023 [facility] 08-07-2023 History of Past i llness Narrative Problem Noted Date Diagnosed Date Resolved Date Hypophosphatemia 08/07/2023 08/10/2023 Hypomagnesemia 08/07/2023 08/10/2023 Hypokalemia 08/07/2023 08/10/2023 Chronic pulmonary heart disease 05/03/2006 10/01/2022 Cough 04/01/2006 05/03/2006 Obstructive chronic bronchit is with exacerbation 05/03/2006 Overview: COPD Viral pneumonia, unspecified 05/03/2006 Overview: Pneumonia documented as of this encounter (statuses as of 08/11/2023) [facility]02-03-2024 History of Past illness Narrative* Problem Noted Date Diagnosed Date Resolved Date Hypophosphatemia 08/07/2023 08/10/2023 Hypomagnesemia 08/07/2023 08/10/2023 Hypokalemia 08/07/2023 08/10/2023 Chronic pulmonary heart disease 05/03/2006 10/01/2022 Cough 04/01/2006 05/03/2006 Obstructive chronic bronchit is with exacerbation 05/03/2006 Overview: COPD Viral pneumonia, unspecified 05/03/2006 Overview: Pneumonia documented as of this encounter (statuses as of 08/18/2023) [facility] History of Past illness Narrative* Problem Noted Date Diagnosed Date Resolved Date Hypophosphatemia 08/07/2023 08/10/2023 Hypomagnesemia 08/07/2023 08/10/2023 Hypokalemia 08/07/2023 08/10/2023 Chronic pulmonary heart disease 05/03/2006 10/01/2022 Cough 04/01/2006 05/03/2006 Obstructive chronic bronchit is with exacerbation 05/03/2006 Overview: COPD Viral pneumonia, unspecified 05/03/2006 Overview: Pneumonia documented as of this encounter (statuses as of 08/19/2023) [facility] History of Past illness Narrative* Problem Noted Date Diagnosed Date Resolved Date Hypophosphatemia 08/07/2023 08/10/2023 Hypomagnesemia 08/07/2023 08/10/2023 Hypokalemia 08/07/2023 08/10/2023 Chronic pulmonary heart disease 05/03/2006 10/01/2022 Cough 04/01/2006 05/03/2006 Obstructive chronic bronchit is with exacerbation 05/03/2006 Overview: COPD Viral pneumonia, unspecified 05/03/2006 Overview: Pneumonia documented as of this encounter (statuses as of 08/19/2023) [facility] History of Past illness Narrative* Problem Noted Date Diagnosed Date Resolved Date Hypophosphatemia 08/07/2023 08/10/2023 Hypomagnesemia 08/07/2023 08/10/2023 Hypokalemia 08/07/2023 08/10/2023 Chronic pulmonary heart disease 05/03/2006 10/01/2022 Cough 04/01/2006 05/03/2006 Obstructive chronic bronchit is with exacerbation 05/03/2006 Overview: COPD Viral pneumonia, unspecified 05/03/2006 Overview: Pneumonia documented as of this encounter (statuses as of 09/03/2023) [facility] History of Past illness Narrative* Problem Noted Date Diagnosed Date Resolved Date Hypophosphatemia 08/07/2023 08/10/2023 Hypomagnesemia 08/07/2023 08/10/2023 Hypokalemia 08/07/2023 08/10/2023 Chronic pulmonary heart disease 05/03/2006 10/01/2022 Cough 04/01/2006 05/03/2006 Obstructive chronic bronchit is with exacerbation 05/03/2006 Overview: COPD Viral pneumonia, unspecified 05/03/2006 Overview: Pneumonia documented as of this encounter (statuses as of 09/13/2023) [facility] History of Past illness Narrative* Problem Noted Date Diagnosed Date Resolved Date Hypophosphatemia 08/07/2023 08/10/2023 Hypomagnesemia 08/07/2023 08/10/2023 Hypokalemia 08/07/2023 08/10/2023 Chronic pulmonary heart disease 05/03/2006 10/01/2022 Cough 04/01/2006 05/03/2006 Obstructive chronic bronchit is with exacerbation 05/03/2006 Overview: COPD Viral pneumonia, unspecified 05/03/2006 Overview: Pneumonia documented as of this encounter (statuses as of 09/22/2023) [facility] History of Past illness Narrative* Problem Noted Date Diagnosed Date Resolved Date Hypophosphatemia 08/07/2023 08/10/2023 Hypomagnesemia 08/07/2023 08/10/2023 Hypokalemia 08/07/2023 08/10/2023 Chronic pulmonary heart disease 05/03/2006 10/01/2022 Cough 04/01/2006 05/03/2006 Obstructive chronic bronchit is with exacerbation 05/03/2006 Overview: COPD Viral pneumonia, unspecified 05/03/2006 Overview: Pneumonia documented as of this encounter (statuses as of 09/25/2023) [facility] History of Past illness Narrative* Problem Noted Date Diagnosed Date Resolved Date Hypophosphatemia 08/07/2023 08/10/2023 Hypomagnesemia 08/07/2023 08/10/2023 Hypokalemia 08/07/2023 08/10/2023 Chronic pulmonary heart disease 05/03/2006 10/01/2022 Cough 04/01/2006 05/03/2006 Obstructive chronic bronchit is with exacerbation 05/03/2006 Overview: COPD Viral pneumonia, unspecified 05/03/2006 Overview: Pneumonia documented as of this encounter (statuses as of 09/27/2023) [facility] History of Past illness Narrative* Problem Noted Date Diagnosed Date Resolved Date Hypophosphatemia 08/07/2023 08/10/2023 Hypomagnesemia 08/07/2023 08/10/2023 Hypokalemia 08/07/2023 08/10/2023 Chronic pulmonary heart disease 05/03/2006 10/01/2022 Cough 04/01/2006 05/03/2006 Obstructive chronic bronchit is with exacerbation 05/03/2006 Overview: COPD Viral pneumonia, unspecified 05/03/2006 Overview: Pneumonia documented as of this encounter (statuses as of 10/13/2023) [facility]02-03-2024 NoteHNO ID: [id number] Author: SEVERO DEVI APRN.TELETYPESETTER Service: Neurosurgery Author Type: Nurse Practitioner Type: Progress Notes Filed: 08/07/2023 14:22 Note Text: Neurosurgery Progress Note SERVICE DATE: 08/07/2023 SUBJECTIVE: TORIE. Gabbi DIEHL/n/v OBJECTIVE: Vitals: Temp (24hrs), Av.6 [...] 0659 08/07/23 07 - 08/08/23 0659 Shift 2504-3933 0453-1823 8724-7729 24 Hour Total 4424-7232 5554-3012 0760-9672 24 Hour Total INTAKE PO 100 200 300 PO 100 200 300 IV 225 440 260 3134 Volume (mL) (dextrose 5% in NaCl 0.9% iv infusion) 225 601 286 0559 Shift Total 325 3212 505 4170 OUTPUT Urine 0 300 400 700 100 100 Output ( External Collection Device 08/06/23 0730 [facility]) 0 300 400 700 100 100 # [...] 6 H PRN Labs: Recent Labs 08/07/23 02108/06/23201008/05/23220908/05/239 NA 143 -- -- 144 K 3.6* [...] Dr Portillo Neurosurgery w (more content not included)...[facility] 08-07-2023 NoteHNO ID: [id number] Author: SPENCER JIMENEZ MD Service: General Surgery [...] August 07, 2023 TIME: 12:02 PM Pager: [phone] Trauma Surgery Progress Note SERVICE DATE: 08/07/2023 Trauma Service Pager: For questions or concerns Mon-Fri 6a-5p please page [phone]. After 5pm and on Weekends and Holidays, please page [phone] if in ICU or [phone] if on RNF. SUBJECTIVE: NAEON. A-line placed [...] 0659 08/07/23 07 - 08/08/23 0659 Shift 8930-6982 9928-9748 8459-9980 24 Hour Total 0199-0016 0871-6245 6444-7348 24 Hour Total INTAKE PO 100 200 300 PO 100 200 300 IV 225 748 646 8135 Volume (mL) (dextrose 5% in NaCl 0.9% iv infusion) 225 588 212 3513 Shift Total 325 9595 072 5122 OUTPUT Urine 0 300 400 700 Output ( External Collection Device 08/06/23 0730 [facility]) 0 300 400 700 # of BMs [...] gross deformities. No cl (more content not included)...[facility]02-02-2024 Miscellaneous Notes* Telephone Encounter - Brandie Luis [...] Thank you. Chrystal Magaña. [facility] NoteHNO ID: [id number] Author: KIANA TILLEY DO Service: General Surgery [...] attending's supervision Informed Consent Consent Obtained: Written [place] Protocol A moment to CARE was completed. [...] May DATE: August 06, 2023 TIME: 1:25 [facility]02-02-2024 NoteHNO ID: [id number] Author: JESSIKA NICOLE MD Service: Neurosurgery Author Type: Physician Type: Plan of Care Filed: 08/06/2023 09:45 Note Text: Study #[id number]: Traumatic Brain Injury Patient Registry PI: Jessika Nicole MD Visit: Eligibility check Inclusion Criteria Age 18-99: Yes Radiographic evidence of a TBI confirmatory head computed tomography (CT) : Yes Exclusion Criteria Ikw-Ovohjxu-raimtodu: No Age < 18 years of age: [...] Traumatic Brain Injury Patient Registry Jessika Nicole [facility]02-02-2024 NoteHNO ID: [id number] Author: SPENCER JIMENEZ MD Service: General Surgery [...] August 06, 2023 TIME: 9:46 AM Pager: [phone] Trauma Surgery Progress Note SERVICE DATE: 08/06/2023 Trauma Service Pager: For questions or concerns Mon-Fri 6a-5p please page [phone]. After 5pm and on Weekends and Holidays, please page [phone] if in ICU or [phone] if on RNF. SUBJECTIVE: Patient confused overnight. [...] 08/05/23699 - 08/06/2365808/06/23699 - 08/07/23 0659 Shift 1863-8000 9473-8097 5318-7628 24 Hour Total 4941-4272 8149-3221 8691-2511 24 Hour Total INTAKE IV 1000 1000 [...] 08/06/23 0601 08/06/23 0544 08/06/23 0417 08/05/23 2760 NA -- -- -- 144 K -- [...] NSGY consulted Q1 neuro (more content not included)...[facility]02-02-2024 NoteHNO ID: [id number] Author: PANFILO RICHARDSON DO Service: General Surgery [...] DO, PGY-4 General Surgery Resident 5:03 AM 08/06/2023[facility]01-10-2024 NoteHNO ID: [id number] Author: LISE MAJOR APRN.TELETYPESETTER Service: ? Author Type: Nurse Practitioner Type: [...] Cancer Mother R/T LUNG CANCER Heart Father [place] Cancer Sister LUNG Social History Tobacco Use [...] membrane normal. Nose: Nose normal. Mouth/Throat: Lips: [place]. Mouth: Mucous membranes are moist. Pharynx: Oropharynx [...] J06.9 (primary diagnosis) - (more content not included)...[facility]12-08-2023 Miscellaneous Notes* Telephone Encounter - Sushila Espinoza [...] you. Sushila Espinoza RN. [facility] Miscellaneous Notes* Telephone Encounter - Brandie [...] advise patient. Thank you. documented [facility] Miscellaneous Notes* Telephone Encounter - Teagan Meyers, FINESSE - 05/12/2023 11:41 AM EST Attempted to call pt. No answer and no VM set up. Called and spoke with daughter Ameena-notified of results. * Telephone Encounter - Katty Kelly Ma - 05/10/2023 4:00 PM EST T/C patient, VM not set up. * Telephone Encounter - Katty Kelly Ma - 05/10/2023 3:59 PM EST ----- Message from Joan Johnson APRN.TELETYPESETTER sent at 05/10/2023 12:50 PM EST ----- Please let patient know that blood work overall is within acceptable ranges. Thank you Joan Johnson APRN.TELETYPESETTER documented in this encounterEast [facility] Regional Hospital11-06-2023 Miscellaneous Notes* Telephone Encounter - Katty Kelly Ma - 05/10/2023 10:57 AM EST Patient was instructed in her OV last week to contact prescribing provider. * Telephone Encounter - Jackie Potter - 05/10/2023 10:29 AM EST Requesting a med prescribed by Dr. Duarte, her tele grout sewer line repairer who is not at the [facility]. Patient will contact original prescribing doctor to obtain Symbicort. documented in this encounterEast Ohio Regional Hospital11-02-2023 NoteHNO ID: [id number] Author: Joan Johnson APRN.TELETYPESETTER Service: ? Author Type: Nurse Practitioner Type: [...] mL by mouth ev (more content not included)...[facility]11-01-2023 Miscellaneous Notes* Telephone Encounter - Xiomara Abad [...] you. Xiomara Abad LPN. documented in this encounterEast Ohio Regional Hospital10-31-2023 Miscellaneous Notes* Telephone Encounter - Rachel Rudd RN - 05/04/2023 11:32 AM EDT Medication was supposed to be sent to [facility]. Please resend. * Telephone Encounter - Brandie Luis APRN.MEAT SPECIALIST - 05/04/2023 10:10 AM EDT OK, see below. Does appear discontinued 11/2022 on our medication list but she has been filling thismonthly for the last three months on review of outside medication dispense history so will refill again. * Telephone Encounter - Nava Connell LPN - 05/04/2023 8:22 AM EDT Briana with [facility] is calling for a refill on Lexapro 20 mg taking 1 per day. They fill pill packs for pt. Last prescription was 05-22-22 qty 90 with 3 refill. This prescription shows being disontinued by another provider on 11/13/22. Please review and advise [facility]. Naav Connell LPN documented in this encounterEast Ohio Regional Hospital10-25-2023 Miscellaneous Notes* Telephone Encounter - Joan Johnson APRN.CNP - 04/28/2023 6:45 PM EDT Will review in upcoming appointment. Joan Johnson APRN.CNP * Telephone Encounter - Sushila Espinoza RN - 04/26/2023 4:48 PM EDT Call placed to patient and she reports she has not received any Ambien from previous prescription. Patient reports that her preferred pharmacy is [facility] and she isn't sure why [facility] is [...] before bed dose? Thank you Joan Johnson APRN.TELETYPESETTER * Telephone Encounter - Sushila Espinoza RN [...] you. Sushila Espinoza RN. documented in this encounterEast Ohio Regional Hospital2023 Miscellaneous Notes* Telephone Encounter - Nava [...] you. Nava Connell LPN. documented in this encounterEast Ohio Regional Hospital10-12-2023 Miscellaneous Notes* Telephone Encounter - Joan [...] patient. Left message to call back. Nancy rOdaz RN * Telephone Encounter - Issa Herman MD - 04/14/2023 6:21 PM EDT It seems this request has been repetitious with no change. Ambien CR is high cost, so I doubt coverage. There is no record of trying Belsomra so I suggest she try that. * Telephone Encounter - Teagan Meyers RN - 04/14/2023 3:46 PM EDT [...] to be tried. This decision was from [facility] Non-Formulary Exceptions Coverage Policy. Payer: [employer] [phone] Electronic appeal: Not supported View History Pt [...] Ambien in the past. documented in this encounterEast Ohio Regional Hospital10-04-2023 Miscellaneous Notes* Telephone Encounter - Joanie [...] you. Nava Connell LPN documented in this encounterEast Ohio Regional Hospital09-22-2023 Miscellaneous Notes* Telephone Encounter - Eli [...] to be tried. This decision was from [facility] Non-Formulary Exceptions Coverage Policy. Payer: [facility] [phone] Electronic appeal: Not supported View History Medication Being Authorized zolpidem (AMBIEN CR) 6.25 mg CR tablet Take 1 tablet by mouth at bedtime as needed for up to 14 days. Do not start before April 13, 2023. Dispense: 14 tablet Refills: 0 documented in this encounterEast Ohio Regional Hospital09-21-2023 History of Present illness Narrative* Joan Johnson APRN.TELETYPESETTER - 03/25/2023 1:01 PM EDT CC: Patient [...] any benzodiazepines discontinued. Most recent stay at [facility] was for respiratory distress and at end [...] is able to get. Is living with [facility]. Patient agreeable to be honest about any [...] Cancer Mother R/T LUNG CANCER Heart Father ME Cancer Sister LUNG Social History Tobacco Use [...] plan. Joan Johnson APRN.CNP documented in this encounterEast Ohio Regional Hospital09-01-2023 Miscellaneous Notes* Telephone Encounter - Nava Connell [...] notify patient. May Menchaca documented in this encounterEast Ohio Regional Hospital08-28-2023 Miscellaneous Notes* Telephone Encounter - Sushila [...] you. Sushila Espinoza RN documented in this encounterEast Ohio Regional Hospital08-14-2023 Miscellaneous Notes* Telephone Encounter - Nava [...] you. Nava Connell LPN documented in this encounterEast Ohio Regional Hospital08-04-2023 History of Present illness Narrative* Joanie [...] Cancer Mother R/T LUNG CANCER Heart Father ME Cancer Sister LUNG Social History Tobacco Use [...] Level: 4 - Moderate documented in this encounterEast Ohio Regional Hospital08-01-2023 Miscellaneous Notes* Telephone Encounter - Irena [...] daily. Bertha Gar RN documented in this encounterEast Ohio Regional Hospital08-01-2023 Miscellaneous Notes* Telephone Encounter - Brandie Luis APRN.CNS - 02/02/2023 3:23 PM EDT ok * Telephone Encounter - Coco Finney LPN - 02/02/2023 3:16 PM EDT Last office visit: 11/13/2022 Next appointment scheduled: 02/05/23 * Telephone Encounter - Nelly Collins - 02/02/2023 3:07 PM EDT Luiza May has [facility], Luiza/pharmacist is calling Maryam Franco MD today to requestmedication that does not appear on current med list: Hydroxyzine 25 mg one tablet 3x day Please send to [facility] [address] Patient has been identified by name and birthdate. Duration of symptoms: N/A Person calling: pharmacy: Luiza/pharmacist Call patient at: at home [phone] (home) [phone] (cell) Was an appointment scheduled: No Closing statement: Results or non-symptom based questions: Thank you for calling [facility], your call will be returned within the next business day. Nelly Herrera documented in this encounterEast Ohio Regional Hospital07-05-2023 Miscellaneous Notes* Telephone Encounter - Ginny Moreland RN - 01/06/2023 8:33 AM EDT Last Office Visit: 11/13/2022 Future Office Visit: None Requested Prescriptions Pending Prescriptions Disp Refills potassium chloride ER (KLOR-CON) 20 mEq tablet 60 tablet 3 Sig: Take 1 tablet by mouth twice daily. Date of Last Labs: 10/19/2022 documented in this encounterEast Ohio Regional Hospital05-12-2023 History of Present illness Narrative* Joan Johnson, LASER PRINT OPERATOR.TELETYPESETTER - 11/13/2022 11:25 AM EDT CC: Patient presents with: Recheck: [facility]osp follow up HPI Luiza May is a 67 year old female who presents today for Hospital follow-up. Facility: [facility] Date of visit: 11/09/22 Reason for visit: [...] bipap nightly with new mask Is seeing [facility] November 16 and sees [facility] November 20. States she is feeling much better. Using her oxygen at baseline which is 2L with exertion. Feels her shortness of breath, wheezing, and energy level have all returned back to baseline. Uses albuteroltypically once daily. Still taking the prednisone as ordered by hospital and using the mirtazapine before bed. Unsure if this is helpful. Currently using [facility] and next visit is Wednesday. Is now getting introduced to palliative care as she has frequent hospital stays for acute on chronic respiratory failure. Was anemic and with elevated liver enzymes at discharge from [facility], will need re-evaluated. REVIEW OF SYSTEMS General: [...] Cancer Mother R/T LUNG CANCER Heart Father ME Cancer Sister LUNG Social History Tobacco Use [...] SCREENING Completed DATA REVIEWED: Outside chart from [facility] reviewed. ASSESSMENT/PLAN: 1. History of recent hospitalization [...] sleep. - continue mirtazapine as ordered by [facility] and we will re-evaluate in 2 weeks. [...] plan. Joan Johnson APRN.CNP documented in this encounterEast Ohio Regional Hospital05-11-2023 Miscellaneous Notes* Telephone Encounter - Ana Colón LPN - 11/12/2022 4:10 PM EDT Gabby from [facility] notified. Verbalized understanding. * Telephone Encounter - Joan Johnson APRN.CNP - 11/12/2022 3:41 PM EDT Ok with orders Joan Johnson APRN.CNP * Telephone Encounter - Ginny Moreland RN - 11/12/2022 3:34 PM EDT Gabby calling from [facility] to report plan of care for patient and halfway will visit patient 2 times a week for 2 weeks and 1 time a week for 2 weeks. Please review and Advise, Ginny Moreland RN documented in this encounterEast Ohio Regional Hospital05-09-2023 Miscellaneous Notes* Telephone Encounter - Maryam Franco MD - 11/10/2022 4:43 PM EDT Noted Regards, Maryam Franco MD * Telephone Encounter - Ginny Moreland RN - 11/10/2022 1:04 PM EDT Type of form: Home Health Care Orders; Speech Therapy Form received via fax When form is completed, Fax form to [phone] Form has been forwarded to Physician Desk: Dr. Miriam Moreland, RN documented in this encounterHeidi Ville [address]-09-2023 Miscellaneous Notes* Telephone Encounter - Maryam Franco MD - 11/10/2022 4:42 PM EDT I think we have reconciled all her medications Maryam Mohamud MD * Telephone Encounter - Katty Kelly Ma - 11/06/2022 11:31 AM EDT Lisa from [facility] states prescription is written 100mg per 4mL. Take 4ML every 8 hours. * Telephone Encounter - Maryam Franco MD - 11/05/2022 2:20 PM EDT We did not rx the dilantin but I would want her to get back on that medication. RegardsMaryam MD * Telephone Encounter - Katty Kelly Ma - 11/05/2022 10:14 AM EDT Medication has not been prescribed by this office in the past. * Telephone Encounter - Maryam Franco MD - 11/04/2022 7:04 PM EDT T dose of dilantin is the patient taking? I would need her to restart RegardsMaryam MD * Telephone Encounter - Faye Giraldo LPN - 11/04/2022 9:27 AM EDT Lisa from [facility] calling stating Dr Franco had wanted [...] daily as needed. Pt gets meds from [facility] in the pill packs and it [...] Epic. Faye Giraldo LPN documented in this encounterEast Ohio Regional Hospital05-02-2023 History of Present illness Narrative* Maryam [...] PEG tube. Was recently dc from the [facility]. And we are still not sure of [...] meds for prevention of potential scar related seizure.[facility] has her still on these.she did not understand the reason she was put on the medication which I explained to her . She is going to see cards PHYSICIAN CREDENTIALING SPECIALIST on november 10. Tomorrow seeing pulm PHYSICIAN CREDENTIALING SPECIALIST- Ema . she is on symbicort, per [...] Cancer Mother R/T LUNG CANCER Heart Father ME Cancer Sister LUNG Social History Tobacco Use [...] Wt 52.2 kg (115 lb) LMP 02/11/2006 RsA134% BMI 20.37 kg/m General appearance: Well appearing, [...] - ICD9: 780.52, ICD10: G47.00 Cont the everett Franco MD documented in this encounterEast Ohio Regional Hospital04-24-2023 Miscellaneous Notes* Telephone Encounter - Lisette Corona LPN - 10/26/2022 4:08 PM EDT New RX done 10/20/2022 to [facility]. Please see below question from Patient. Lisette Silas * Telephone Encounter - Ginny Whittaker - [...] Thank you. Ginny Whittaker documented in this encounterEast Ohio Regional Hospital04-21-2023 Miscellaneous Notes* Telephone Encounter - Rachel Rudd RN - 10/23/2022 9:29 AM EDT Melina with [facility] called in and was asking to have medication list faxed over. Faxed med list to# [phone]. documented in this encounterEast Ohio Regional Hospital04-20-2023 Miscellaneous Notes* Telephone Encounter - Gisell Schumacher RN - 10/22/2022 4:25 PM EDT laverne Elliott with [facility] calling to update provider that she completed an ST eval on patient. Patient complaining of poor sleep, has memory impairment and has been anxious. Lexi feels ST cognitivetherapy would not be appropriate for pt at this time, and pt does not want ST at this time. Lexi agreeable top reevaluate patient once if sleep improves and anxiety. Gisell Schumacher RN documented in this encounterEast Ohio Regional Hospital04-20-2023 Miscellaneous Notes* Telephone Encounter - Ana Colón LPN - 10/22/2022 12:34 PM EDT Patient notified. Verbalized understanding. * Telephone Encounter - Joan Johnson APRN.CNP - 10/22/2022 12:31 PM EDT Please let patient know all lab work is within acceptable ranges. Take care Joan Johnson APRN.CNP documented in this encounterEast Ohio Regional Hospital04-17-2023 Miscellaneous Notes* Telephone Encounter - Sushila Espinoza RN - 10/19/2022 12:58 PM EDT Patient has been identified by name and date of : Yes, Sushila Espinoza RN Date 10/19/2022 Time 12:58 pm HH Nurse phones for refill(s): Requested Prescriptions Pending Prescriptions Disp Refills folic acid 1 mg tablet 90 tablet 3 Sig: Take 1 tablet by mouth once daily. Melina with [facility] HH services reviewed medications with patient at [...] you. Sushila Espinoza RN documented in this encounterEast Ohio Regional Hospital04-14-2023 Miscellaneous Notes* Telephone Encounter - Katty Kelly Ma - 10/16/2022 3:48 PM EDT Faxed to [facility]. * Telephone Encounter - Joan Johnson APRN.CNP - 10/16/2022 3:39 PM EDT Order was placed by Dr. franco. Please fax as requested. Thank you Joan Johnson APRN.CNP * Telephone Encounter - Sushila Espinoza RN - 10/15/2022 12:[address] PT calling from [facility] to report plan of care for [...] mobility if provider agrees.. Please fax to [employer] at [phone]. Sushila Espinoza RN documented in this encounterEast Ohio Regional Hospital04-14-2023 Miscellaneous Notes* Telephone Encounter - Katty Kelly Ma - 10/16/2022 11:24 AM EDT Left detailed message on [employer] asking for updated med list to be faxed so chart can be reconciled. * Telephone Encounter - Joan Johnson APRN.CNP - 10/16/2022 10:58 AM EDT Call [facility] and get updated med list as [...] you Joan Johnson APRN.CNP documented in this encounterEast Ohio Regional Hospital04-14-2023 Instructions* Patient Instructions* Joan Johnson APRN.CNP - 10/16/2022 10:46 AM EDT Call [facility] to schedule with Dr. Palmer Call [facility] to schedule with Dr. Duarte documented in this encounterEast Ohio Regional Hospital04-14-2023 History of Present illness Narrative* Joan [...] longer has trach or PEG tube. Facility: [facility] Date of visit: 10/09/22-10/12/22 Reason for visit: [...] now has a home health nursepreparing meds. [facility] contacted to get updated med list. See below: Call [facility] and get updated med list as [...] and was taken of seizure medications but [facility] has her still on these. REVIEW OF [...] Cancer Mother R/T LUNG CANCER Heart Father ME Cancer Sister LUNG Social History Tobacco Use [...] SCREENING Completed DATA REVIEWED: Outside chart from [facility] reviewed. ASSESSMENT/PLAN: 1. History of recent hospitalization [...] plan. Joan Johnson APRN.JAMES documented in this encounterEast Ohio Regional Hospital04-13-2023 Miscellaneous Notes* Telephone Encounter - Nancy Ordaz RN - 10/15/2022 4:17 PM EDT Patient calling regarding request for pain medication. Advised patient to address at appointment with Joan Johnson PHYSICIAN CREDENTIALING SPECIALIST on 10/16 as she needs to be seen for this medication. She is agreeable. Nancy Ordaz RN * Telephone Encounter - Ana Colón LPN - 10/15/2022 1:13 PM EDT Patient last seen on 10/01/2022 Hospital follow up scheduled 10/16/2022 with Joan * Telephone Encounter - Chrystal Barragan Pss - 10/15/2022 12:51 PM EDT Patient called to request a refill of OxyContin for her back pain and restless leg. Uses [facility] [place]. I do not see that medication on her current or old med list. Please advise at [phone] or call her daughter, Ameena, at [phone] if/when approved and sent to pharmacy. documented in this encounterEast Ohio Regional Hospital04-13-2023 Miscellaneous Notes* Telephone Encounter - Ana Colón LPN - 10/15/2022 8:14 AM EDT Gabby from [facility] notified. Verbalized understanding. * Telephone Encounter [...] - 10/14/2022 4:21 PM EDT Gabby from [facility] calling asking for verbal order for halfway visits 2 visits weekly for 2 weeks, [...] seizure medications. Please advise documented in this encounterEast Ohio Regional Hospital04-12-2023 Miscellaneous Notes* Telephone Encounter - Katty Kelly Ma - 10/14/2022 1:37 PM EDT Ayanna notified. * Telephone Encounter - Maryam Franco MD - 10/14/2022 11:28 AM EDT Yes, I would follow Regards, Maryam Franco MD * Telephone Encounter - Xiomara Abad LPN - 10/13/2022 10:00 AM EDT Ayanna from [facility] calling patient discharged from [facility] on 10/12, was there for COPD. Receivedreferral for halfway, PT/OT, Social Work. Asking if PCP would follow patient and sign orders? They would like to start with patient on 10/14. Please advise documented in this encounterEast Ohio Regional Hospital03-30-2023 History of Present illness Narrative* Maryam [...] Cancer Mother R/T LUNG CANCER Heart Father ME Cancer Sister LUNG Social History Tobacco Use [...] Wt 51.3 kg (113 lb) LMP 02/11/2006 WiA554% BMI 20.02 kg/m General appearance: Well appearing, [...] sides Maryam Franco MD documented in this encounterEast Ohio Regional Hospital03-27-2023 Miscellaneous Notes* Telephone Encounter - Maryam Franco MD - 09/28/2022 8:52 PM EDT Noted. Regards, Maryam Franco MD * Telephone Encounter - Coco Finney LPN - 09/28/2022 9:34 AM EDT [...] given 15 pills. Please call her at [phone] documented in this encounterEast Ohio Regional Hospital03-20-2023 Miscellaneous Notes* Telephone Encounter - Irena Lomeli LPN - 09/21/2022 1:57 PM EDT Phoned patient to notify her that all the meds requested [facility]ills [facility]. Advisedpatient if there is any issues to call the office back. Patient verbalized understanding. Irena Lomeli LPN * Telephone Encounter - Jackie Evans Pss - 09/21/2022 12:24 PM EDT Please review meds. Some are marked that she is not taking them, but patient was not always clear on what she was taking. She said [facility] told her these had been cancelled and [...] advise. Jackie Evans Pss documented in this encounterEast Ohio Regional Hospital02-28-2023 Miscellaneous Notes* Telephone Encounter - Eli Snow PEDIATRIC SOCIAL WORKER - 09/01/2022 10:34 AM EST Images from the original note were not included. Prior authorization approved [facility] [phone] GALO Case: [id number], Status: Approved, Coverage Starts on: 07/05/2022 12:00:00 [...] of these formulary appropriate? documented in this encounterEast Ohio Regional Hospital02-16-2023 Miscellaneous Notes* Telephone Encounter - Sushila Espinoza RN - 08/20/2022 9:00 AM EST [facility] calls to request faxed portable oxygen orders and most recent OV note. Faxed to [phone] per request. Sushila Espinoza RN documented in this encounterEast Ohio Regional Hospital02-15-2023 History of Present illness Narrative* Maryam Franco MD - 08/19/2022 1:24 PM EST Reason for Visit Patient presents with: Hospital F/U: [facility] 06/29/23 then was transferred to [facility] for about 2 weeks Tube Feeding Assessment: [...] the past 5 years She was in [facility] recently, admitted for 11 days. Daughter notes she presented because ofwhat was deemed to be seizure-like activity from encephalopathy. Daughter was called by patient on the day of admission to [facility] stating that she was having a seizure. [...] then discharged on the 11th day. To [place] but before she reached there her heart rate went down and she was taken back to [facility] where she stayed for a week she went to [facility] for a week.She passed thefeeding test in [place]. There is some note of the daughter saying she was at [facility] for a couple days and then [...] portable oxygen for whenshe is travelling for apts. She is eating now and does not [...] Cancer Mother R/T LUNG CANCER Heart Father ME Cancer Sister LUNG Social History Tobacco Use [...] p Maryam Franco MD documented in this encounterEast Ohio Regional Hospital02-14-2023 Miscellaneous Notes* Telephone Encounter - Jackie Evans Pss - 08/18/2022 10:01 AM EST Error. documented in this encounterEast Ohio Regional Hospital02-11-2023 NoteHNO ID: [id number] Author: Ramiro Zamarripa MD Service: ? Author Type: Physician Type: Progress Notes Filed: 08/16/2022 11:01 PM Note Text: INPATIENT PROGRESS NOTE SERVICE DATE: 08/14/2022 SERVICE TIME: 10:58 PM PRIMARY SERVICE: Internal Medicine Subjective CHIEF COMPLAINT: sob improved/decanulated earlier/doing well INTERVAL HPI: No current facility-administered medications for this encounter. Objective PHYSICAL EXAM: [facility] 02/11/2006 Physical Exam AWAKE. ALERT TRACH removed [...] May DATE: August 14, 2022 TIME: 10:58 [facility] NoteHNO ID: [id number] Author: Ramiro Zamarripa MD Service: ? Author Type: Physician Type: Progress Notes Filed: 08/13/2022 10:14 PM Note Text: INPATIENT PROGRESS NOTE SERVICE DATE: 08/13/2022 SERVICE TIME: 10:08 PM PRIMARY SERVICE: Internal Medicine Subjective CHIEF COMPLAINT: awake/anxious to go home INTERVAL HPI: No current facility-administered medications for this encounter. Objective PHYSICAL EXAM: [facility] 02/11/2006 Physical Exam AWAKE. ALERT TRACH site [...] May DATE: August 13, 2022 TIME: 10:08 [facility]MSaint [facility] [place]-09-2023 NoteHNO ID: [id number] Author: Ramiro Zamarripa MD Service: ? Author [...] May DATE: August 12, 2022 TIME: 10:36 [facility]MSaint [facility] [place]-07-2023 NoteHNO ID: [id number] Author: Ramiro Zamarripa MD Service: ? Author [...] May DATE: August 11, 2022 TIME: 5:31 [facility]MSaint [facility] [place]06-2023 NoteHNO ID: [id number] Author: Ramiro Zamarripa MD Service: ? Author Type: Physician Type: Progress Notes Filed: 08/10/2022 8:12 PM Note Text: INPATIENT PROGRESS NOTE SERVICE DATE: 08/10/2022 SERVICE TIME: 12:38 PM PRIMARY SERVICE: Internal Medicine Subjective CHIEF COMPLAINT: feels better / still requesting to take a shower /did not get one yesterday INTERVAL HPI: No current facility-administered medications for this encounter. Objective PHYSICAL EXAM: [facility] 02/11/2006 Physical Exam AWAKE. LESS ANXIOUS /pleasant [...] May DATE: August 10, 2022 TIME: 12:38 [facility]MSaint [facility] [place]23 NoteHNO ID: [id number] Author: Ramiro Zamarripa MD Service: ? Author [...] May DATE: August 09, 2022 TIME: 4:37 [facility]MSaint [facility] [place]-04-2023 NoteHNO ID: [id number] Author: Ramiro Zamarripa MD Service: ? Author Type: Physician Type: Progress Notes Filed: 08/08/2022 9:05 PM Note Text: INPATIENT PROGRESS NOTE SERVICE DATE: 08/08/2022 SERVICE TIME: 8:57 PM PRIMARY SERVICE: Internal Medicine Subjective CHIEF COMPLAINT: looks and feels much better Less sob/ambulating in hallway w walker and therapist INTERVAL HPI: No current facility-administered medications for this encounter. Objective PHYSICAL EXAM: [facility] 02/11/2006 Physical Exam AWAKE. LESS ANXIOUS /pleasant [...] May DATE: August 08, 2022 TIME: 8:57 [facility] NoteHNO ID: [id number] Author: Ramiro Zamarripa MD Service: ? Author [...] May DATE: August 07, 2022 TIME: 4:23 [facility] [place] NoteHNO ID: [id number] Author: Ramiro Zamarripa MD Service: ? Author Type: Physician Type: Progress Notes Filed: 08/07/2022 12:19 AM Note Text: INPATIENT PROGRESS NOTE SERVICE DATE: 08/06/2022 SERVICE TIME: 12:15 PM PRIMARY SERVICE: Internal Medicine Subjective CHIEF COMPLAINT: awake/more alert/ just pased her MBS INTERVAL HPI: No current facility-administered medications for this encounter. Objective PHYSICAL EXAM: [facility] 02/11/2006 Physical Exam BROTHER AND AT BEDSIDE [...] May DATE: August 06, 2022 TIME: 12:15 [facility]aint [facility] [place]23 Miscellaneous Notes* Telephone Encounter - Nai Guillen [...] assist patient. JOHNNIE Meyer documented [facility] Miscellaneous Notes* Telephone Encounter - JOHNNIE Meyer - 08/05/2022 4:30 PM EST Opened in error documented in this encounterEast [facility]11-11-2022 Miscellaneous Notes* Telephone Encounter - Joan Johnson APRN.CNP - 05/15/2022 3:33 PM EST PDMP website checked and validated. All prescriptions have been APPROPRIATELY filled. No suspiciousactivity was identified. 05/15/2022 by Joan Johnson APRN.JAMES * Telephone Encounter [...] advise. Vianca Vicente Pss documented in this encounterEast [facility]09-30-2022 History of Present illness Narrative* Kishan Esquivel Jr., MD - 04/03/2022 2:04 PM [...] treated at [facility]. Patient reports history of ME and stroke in 2018, then after that [...] and heard her hollering. States went to [facility] for suture placement. CT brain on 03/20/22 at [facility] showed per report: Normal soft tissue structures. [...] Cancer Mother R/T LUNG CANCER Heart Father ME Cancer Sister LUNG SOCIAL HISTORY Social History [...] RLE symptoms. Pt relates to stroke and ME, but no records for review and pt [...] - ICD9: V12.59, ICD10: Z86.79 Stable per [facility] CT brain 2 weeks ago. No definite [...] spine to further evaluate.Needs neurosurgery follow up. Kishan Esquivel MD I spent a total of 54 minutes on the date of the service which included preparing to see the patient, ajaf-xu-qywc patient care, completing clinical documentation, obtaining and/or reviewing separately obtained history, performing a medically appropriate examination, counseling and educating the pat ient/family/caregiver, ordering medications, tests, or procedures, independently interpreting results (not separately reported), and communicating results to the patient/family/caregiver. documented in this encounterEast [facility] Hospital09-22-2022 Instructions* Patient Instructions* Joan Johnson APRN.CNP - 03/26/2022 8:49 AM EDT Can take extra strength tylenol (500mg) 2 tablets every 8 hours as needed for pain. documented in this encounterEast [facility] Hospital09-22-2022 History of Present illness Narrative* Joan Johnson, LASER PRINT OPERATOR.JAMES - 03/26/2022 8:23 AM EDT CC: Patient presents with: Recheck: [facility] ER follow up, abdominal pain HPI Luiza May is a 66 year old female who presents today for ER follow-up of 2 separate visits. Facility: [facility] ER Date of visit: 03/19/22 and then [...] Cancer Mother R/T LUNG CANCER Heart Father ME Cancer Sister LUNG Social History Tobacco Use [...] SCREENING Completed DATA REVIEWED: Outside chart from [facility] reviewed. ASSESSMENT/PLAN: 1. Urinary tract infection without [...] plan. Joan Johnson APRN.CNP documented in this encounterEast [facility] Hospital09-09-2022 Miscellaneous Notes* Telephone Encounter - Maryam Franco MD - 03/13/2022 5:08 PM EDT noted * Telephone Encounter - Vipin Nobles RN - 03/13/2022 12:53 PM EDT Dacia- [facility]- reports they saw patient for nursing and ST. Reports patient is refusing any more visits so they are discharging patient early. Dacia will send order. documented in this encounterEast [facility] Hospital09-07-2022 Miscellaneous Notes* Telephone Encounter - Maryam Franco MD - 03/11/2022 12:54 PM EDT Noted * Telephone Encounter - Rachel Rudd RN - 03/10/2022 3:00 PM EDT Barb SINGH with [facility] called in to report she was supposed to see the Pt today the discharge her. She reports the Pt called in and canceled her appointment and wouldn't reschedule. documented in this [facility]09-01-2022 Miscellaneous Notes* Telephone Encounter - Ana Colón LPN - 03/05/2022 12:56 PM EDT No answer, unable to leave message. Letter sent. * Telephone Encounter - Ana Colón LPN - 03/05/2022 12:48 PM EDT ----- Message from Joan Johnson APRN.TELETYPESETTER sent at 03/05/2022 8:23 AM EDT ----- Please let patient know that lab work is overall normal. Blood counts are still slightly low at 11 but improved from the 10.7 form 4 months ago. Take care Joan Johnson APRN.TELETYPESETTER documented in this encounterEast [facility] Hospital08-30-2022 Miscellaneous Notes* Telephone Encounter - Maryam Franco MD - 03/03/2022 5:15 PM EDT noted * Telephone Encounter - Xiomara Abad LPN - 03/03/2022 2:33 PM EDT Betzy from [facility] calling for missed ST visit this week with the patient. She was unable to schedule a visit this week with the patient. documented in this encounterEast [facility] Hospital08-22-2022 Miscellaneous Notes* Telephone Encounter - Nava Connell LPN - 02/23/2022 8:46 AM EDT Spoke with Mildred and information listed below given. Phone number corrected. Nava Connell LPN * Telephone Encounter - Katty Kelly Ma - 02/18/2022 10:03 AM EDT Tried calling chasity Levy is not in service. Tried several times. * Telephone Encounter - Maryam Franco MD - 02/17/2022 5:09 PM EDT Verbal ok for Physical Therapy, ot and speech. We dont have a nearer neurosurgeon that I know. Can we find out if there is a neurosurgeon at [facility]? * Telephone Encounter - Irena Lomeli LPN - 02/17/2022 5:06 PM EDT Review number 2 and number 5 please. Irena Lomeli LPN * Telephone Encounter - Irena Lomeli LPN - 02/17/2022 4:45 PM EDT Phone patient 02/16/2022 and pcp sent in [place] to her pain. Patient has been seen today 02/17/2022 for appointment with . Irena Lomeli LPN * Telephone Encounter - Nava Connell LPN - 02/16/2022 2:13 PM EDT FINESSE Levy with [facility] called and states: Opened pt today for nursing and will be seeing pt 2 times a week for 2 weeks then 1 time a week for3 weeks. Please approve pt for PT, OT and speech, verbal orders needed. 3. Mildred states pt is in a lot of pain after having fall earlier and surgery at [facility]. PT was released from there to [facility]. Pt was given Oxycodone there. Pt [...] not ready to come out. Please advise [facility] 5. Pt needs to follow up with doctor from [facility] Severo Jurado but concerned with getting to [facility] for apts. Requesting a referral to a closer Neurosurgeon to do all the follow up. Please advise pt at her apt tomorrow. Nava Connell LPN documented in this encounterEast [facility] Hospital08-19-2022 Miscellaneous Notes* Telephone Encounter - Katty Kelly Ma - 02/20/2022 8:46 AM EDT Betzy hogan. * Telephone Encounter - Joan Johnson APRN.CNP - 02/20/2022 7:57 AM EDT Agree with orders. Joan Johnson APRN.JAMES * Telephone Encounter - Nancy Ordaz RN - 02/19/2022 4:[address] Betzy [facility] calling with plan of care. She will see patient 1 x/week for four weeks for cognitive deficits. Nancy Ordaz RN documented in this encounterEast [facility] Hospital08-11-2022 Miscellaneous Notes* Telephone Encounter - Ana Colón LPN - 02/12/2022 1:27 PM EDT Left message for patient to return call. Patient will need to request this at her upcoming appointment on 02/17/2022. No oxycodone on med list, has only been prescribed hydrocodone back in 2010. * Telephone Encounter - Nelly Romero [facility] - 02/12/2022 12:43 PM EDT Patient is requesting a refill on her oxycodone 5 mg to be sent to her pharmacy [facility] in [place] on [address]. Any questions patient can be reached at [phone] Electronically signed by Nelly [facility] at 02/12/2022 12:47 PM EDT documented in this encounterEast [facility] Hospital08-09-2022 Miscellaneous Notes* Telephone Encounter - Maryam Franco MD - 02/10/2022 1:20 PM EDT Noted * Telephone Encounter - Nava Connell LPN - 02/03/2022 6:15 PM EDT 1. Left a message for Jacqui with verbal information listed below. 2. Spoke with Melina at [facility] [phone] and ask to have records of pt's recent nursing homestay be faxed. Fax number given. Nava Connell LPN * Telephone Encounter - Maryam Franco MD - 02/03/2022 5:27 PM EDT Verbal ok for nursing, Physical Therapy/ot and speech. Can you get me records of her recent intermediate stay * Telephone Encounter - Coco Finney LPN - 02/03/2022 11:22 AM EDT Jacqui calling for Home Health orders: Asking for Nursing, Pt/Ot and Speech therapy. Being discharged from [facility] on 02/09/2022 documented in this encounterEast [facility] Hospital08-08-2022 Nurse Progress note Eating-06 Independent Oral hygiene-06 Independent Toileting hygiene-04 Supervision/Touching assistance Shower/bathe self-03 Partial/Moderate assistance Upper body dressing-04 Supervision/Touching assistance Lower body dressing-04 Supervision/Touching assistance Putting on/Taking off footwear-06 Independent Roll left and right-05 Setup Sit to lying-05 Setup Lying to sitting on side of bed-05 Setup Sit to stand-04 Supervision/Touching assistance Chair/yxh-wm-jbxsa transfers-04 Supervision/Touching assistance Toilet transfers-04 Supervision/Touching assistance [...] by FINESSE Lema on 02/09/2022 07:48 PM [id number] Nurse Progress note Discharge summary faxed to [place] of [employer] with a discharge date of 02/09/2022 with home PT/OT/ST/TELETRAY OPERATOR/SW/RN through [facility]. Fax confirmation was received. Authorization [id number]. Digitally Signed by FINESSE Lema on 02/09/2022 01:20 PM [facility] [id number] Hospital Discharge instructions Patient Education 02/09/2022 09:11:34 [...] Follow these instructions at home: Medicines Take bcxl-tmj-khygfsg and prescription medicines only as told by [...] to keep your urine pale yellow. ?Take huvb-hum-mfhfwim or prescription medicines. ?Eat foods that are [...] and water are not available, use hand casting inspector. ?Change your dressing as told by your [...] is common to have head pain. Take ggie-vjx-wcnokrv and prescription medicines only as told by [...] 12/06/2019 Document Revised: 01/10/2020 Document Reviewed: 12/06/2019 eBuilder Patient Education 2019 relocality. 02/09/2022 09:10:16 Subdural Hematoma Subdural Hematoma A [...] care provider about what to expect. Take pkfi-koj-jwxlcnd and prescription medicines only as told by your health care provider. Do not take blood thinners or NSAIDs unless your health care provider approves. These include aspirin, ibuprofen, naproxen, and warfarin. Keep your home environment safe to reduce the risk of falling. Keep all follow-up visits as told by your health care provider. This is important. Where to find more information National Clearwater of Neurological Disorders and Stroke: www.ninds.nih.gov [place] Academy of Neurology (AAN): www.aan.com Brain Injury Association of [place]: www.biausa.org Get help right away if you: [...] 05/08/2005 Document Revised: 05/22/2019 Document Reviewed: 05/22/2019 eBuilder Patient Education 2020 relocality. 02/09/2022 09:09:09 Fall Prevention in the Home, [...] Use night-lights. Place frequently used items in qtpt-ez-otrfe places. Lower the shelves around your home [...] of the way. Do not use floor chadian or wax that makes floors slippery. If [...] include working with a physical therapist or animal attendants and trainers to improve your strength, balance, and endurance. Where to find more information Centers for Disease Control and PreventionSONIA: https://www.cdc.gov National Clearwater on Aging: https://rm5amoj.saira.nih.gov Contact a health care provider if: You [...] 06/11/2003 Document Revised: 06/03/2018 Document Reviewed: 02/03/2018 eBuilder Patient Education 2020 relocality. 02/09/2022 09:09:00 Chronic Obstructive Pulmonary Disease, Luts-bl-Iiqd Chronic Obstructive Pulmonary Disease Chronic obstructive pulmonary [...] as told by your doctor. Only take jicn-qkr-oolrdlj or prescription medicines as told by your [...] Document Reviewed: 02/15/2014 ExitCare Patient Information 2015 [employer]iHealth, LLC. This information is not intended to replace advicegiven to you by your health care provider. Make sure you discuss any questions you have with your health care provider. Follow Up Care 01/27/2022 12:11:01 With:MARYAM FRANCO MD Address: [address] [place] [phone] When:02/17/2022 15:40:00 Comments:Take Discharge Instructions to Dr Visit...if Home Care does not remove sutures- please ask at this appt for Dr to remove With:SEVERO JURADO MD Address: [address] [place] [address]- [phone] When:04/21/2022 13:40:00 Comments:Neurosurgical follow up Rian Colón 08-08-2022 Note Discharge Instructions Thank you for [...] up Where: [address] [place] [address]- [phone] Follow Up with MARYAM FRANCO MD When 02/17/2022 03:40 PM EDT Why: Take Discharge Instructions to Dr Visit...if Home Care does not remove sutures- please ask at this appt for Dr to remove Where: [address] [place] [address]- The Following Activity and Diet Have Been [...] Therapy Instruction: Full weight bearing, Provided by [facility] [phone] Consult Home Health - RN - Ordered -- 02/09/22 9:13:00 EDT, Reason: Disease management Medication management Consult Home Health - Computer Operations Specialist - Ordered -- 02/09/22 9:13:00 EDT, Reason: [...] (2) times daily before meals Pickup at [facility] New polyethylene glycol 3350 (MiraLax oral powder for reconstitution) by mouth Once a day as needed for Constipation Changed DULoxetine (DULoxetine 60 mg oral delayed release capsule) 1 cap by mouth Once a day Pickup at [facility] Changed albuterol (albuterol MDI (90 mcg/ inh) CFC free inhalation aerosol) 2 puff(s) by inhalation Four (4) times a day as needed for Shortness of breath (SOB) Pickup at [facility] Changed bisacodyl (bisacodyl 10 mg rectal suppository) 1 suppository(ies) in the rectum Once a day as needed for Constipation Changed escitalopram (escitalopram 10 mg oral tablet) 1 tab(s) by mouth Once a day Pickup at [facility] Changed hydrOXYzine (hydrOXYzine hydrochloride 25 mg oral tablet) 2 tab(s) by mouth Every 6 hours as needed for Anxiety Duration: 30 Days Pickup at [facility] Changed oxyCODONE (oxyCODONE 5 mg oral tablet ( IMMEDIATE release )) 1 tab(s) by mouth Every 6 hours as needed for Pain Subdural hematoma Duration: 5 Days Pickup at [facility] Changed senna (senna (sennosides) 8.6 mg oral tablet) 1 tab(s) by mouth Once a day Changed zolpidem (Ambien 5 mg oral tablet) 1 tab(s) by mouth Daily at bedtime as needed for Sleep Duration: 7 Days Pickup at [facility] Unchanged fluticasone/ umeclidinium/ vilanterol (Trelegy Ellipta 100 mcg-62.5 mcg-25 mcg/ inh inhalation powder) 1 puff(s) by inhalation Once a day at the same time every day. Following administration, rinse mouth with water after use (do not swallow). Pharmacy Information [facility]: [address] [place], [place] [id number] [phone] What How Much When Comments Stop Taking [...] Follow these instructions at home: Medicines Take zdza-zir-pvimpey and prescription medicines only as told by [...] keep your urine pale yellow. ? Take jujf-abc-rejujva or prescription medicines. ? Eat foods that [...] and water are not available, use hand casting inspector. ? Change your dressing as told by [...] is common to have head pain. Take aphj-zrn-jxoculb and prescription medicines only as told by [...] Document Reviewed: 12/06/2019 Elsevier Patient Education 2020 eBuilder Inc. Subdural Hematoma A subdural hematoma is [...] care provider about what to expect. Take shki-myu-wesgmdv and prescription medicines only as told by your health care provider. Do not take blood thinners or NSAIDs unless your health care provider approves. These include aspirin, ibuprofen, naproxen, and warfarin. Keep your home environment safe to reduce the risk of falling. Keep all follow-up visits as told by your health care provider. This is important. Where to find more information National Clearwater of Neurological Disorders and Stroke: www.ninds.nih.gov Trin[place] Academy of Neurology (AAN): www.aan.com Brain Injury Association of [place]: www.biausa.org Get help right away if you: [...] 05/08/2005 Document Revised: 05/22/2019 Document Reviewed: 05/22/2019 eBuilder Patient Education 2020 eBuilder Inc. Fall Prevention in the Home, Adult [...] Use night-lights. Place frequently used items in ataq-wx-kbqtf places. Lower the shelves around your home [...] of the way. Do not use floor chadian or wax that makes floors slippery. If [...] include working with a physical therapist or animal attendants and trainers to improve your strength, balance, and endurance. Where to find more information Centers for Disease Control and PreventionSONIA: https://www.cdc.gov National Clearwater on Aging: https://bt5jyvh.saira.nih.gov Contact a health care provider if: You [...] 06/11/2003 Document Revised: 06/03/2018 Document Reviewed: 02/03/2018 eBuilder Patient Education 2020 eBuilder Inc. Chronic Obstructive Pulmonary Disease Chronic obstructive [...] as told by your doctor. Only take zpad-fjt-sszbuyd or prescription medicines as told by your [...] Document Reviewed: 02/15/2014 ExitCare Patient Information 2015 [facility]. This information is not intended to replace advicegiven to you by your health care provider. Make sure you discuss any questions you have with your health care provider. Additional Information VACCINATE! IT SAVES LIVES! Members of the community who have not yet received the COVID-19 vaccine and would like to receive it can visit one of [facility] vaccine clinics. There are many vaccine clinic locations within the [facility]. For locations and available times, please visit https://gettheshot.coronavirus.[place].gov/. It is important to note that some COVID mobile vaccine clinics are held outdoors and may be canceled in rainy or stormy conditions. To learn more about pediatric vaccinations (ages 5-11), we invite you to visit the [facility] webpage. https://www.akInvolution Studioss.org/pages/6834-Mgquu-Gaemshcokbv-Hrmnhlsyae-Efuei-Gll stions.htmlTo learn more about the COVID-19 vaccine, we invite you to visit the [facility] website for a list of frequently asked questions. https://[email or web address]/assets/Oqixbacm-fbb-Xinmvvfc/bmcpv-Ttdauvd-Uzksnecakz _Asked-Questions.pdf [facility] Patient Portal Access Instructions: Stay connected with your healthcare team and access your personal medical information anytime with the [facility] Patient Portal.If you would like a full copy of your medical records, please contact the [facility] Medical Records Department, Wednesday through Wednesday between 8a.m. and 4:30p.m. Please follow the directions below to access the portal: 1.Access the email account you provided upon registration to the hospital.2.Look for an invitation email from [facility].3.Open the email and access the invitation link: Accept Invitation to [facility]4.Fill in the required smith to create your account. Sign into [email or web address] with your username and password that you [...] you will allow to register on the [facility] Patient Portal for access to your information. You can also access the [facility] Patient Portal on the [employer]Career[employer]ite bacilio. Simply click on Health Records under Knozen and then click on the [facility] logo. HOW TO SAFELY DISPOSE OF PRESCRIPTION [...] Call your local pharmacy or go to [email or web address].[email or web address]/[email or web address] to find one close to you.3.Make use of household items: Use cat litter or old coffee grounds to dispose medications if other options arenot available. Mix your drugs with these household products, seal them in an airtight container andthrow it into the garbage. Call [facility]: [phone] to be sure your drugs can be [...] the Home, Adult Chronic Obstructive Pulmonary Disease, Wcig-mf-Ykxo Medication Leaflets My discharge plan and instructions have been reviewed and explained to me and I,LUIZA MAY understand my current condition and have read and understand these discharge instructions. I have received a written copy of the plan/instructions. If I have questions, I am aware that I should contact my doctor. Patient/Attendant Lodging Facilities Signature: Date/Time: Relationship to Patient: Witness Name/Signature: Date/Time: Rian [id number] Nurse Progress note Nursing GG Entered On: 02/09/2022 9:08 EDT Performed On: 02/09/2022 9:08 EDT by Melina Israel LPN Nursing GG's OT GG Grid Eating : Independent Melina Israel LPN - 02/09/2022 9:08 EDT Digitally Signed by Melina Israel LPN on 02/09/2022 09:08 AM Rian [id number] Physical medicine and rehab Discharge summary Date of Service 02/09/2022 Discharge Diagnosis 1. Subdural hematoma (S06.5X9A - ICD-10-CM) Ordered: oxyCODONE 5 mg oral tablet ( IMMEDIATE release); Dose : 5 mg = 1 tab(s), Oral, q6hr, PRN Pain, X 5 day(s), # 10 tab(s), 0 Refill(s), 02/14/22 8:46:00 EDT, Pharmacy: [facility], Subdural hematoma, 160, cm, 01/27/22 19:40:00 [...] the circulatory system (Z82.49 - ICD-10-CM) Other half-way (current) drug therapy (Z79.899 - ICD-10-CM) Additional Orders: Ordered: Ambien 5 mg oral tablet,Dose : 5 mg = 1 tab(s), Oral, qHS, PRN Sleep, X 7 day(s), # 7 tab(s), 0 Refill(s), 02/16/22 8:48:00 EDT, Pharmacy: [facility], 160, cm, 01/27/22 19:40:00 EDT, Height, [...] qDay, # 30 cap(s), 0 Refill(s), Pharmacy: [facility], 160, cm, 01/27/22 19:40:00 EDT, Height [...] BIDAC, # 60 tab(s), 0 Refill(s), Pharmacy: [facility], 160, cm, 01/27/22 19:40:00 EDT, Height [...] (SOB), # 6.7 gram(s), 0 Refill(s), Pharmacy: [facility], 160, cm, 01/27/22 19:40:00 EDT, Height [...] qDay, # 30 tab(s), 0 Refill(s), Pharmacy: [facility], 160, cm, 01/27/22 19:40:00 EDT, Height Ordered: hydrOXYzine hydrochloride 25 mg oral tablet,Dose : 50 mg = 2 tab(s), Oral, q6h, PRN Anxiety, X 30 day(s), # 30 tab(s), 0 Refill(s), 03/11/22 8:46:00 EDT, Pharmacy: [facility], 160, cm, 01/27/22 19:40:00 EDT, Height [...] Initially admitted to acute rehabilitation 01/27/2022 from [facility]. She will visit status post cranioplasty on [...] Discharge Instructions to Dr Visit Where: [address] [place] [address]- Follow Up with SEVERO JURADO MD When Where: [address] [place] [address] [phone] Follow Up Appointments No qualifying data available. Follow Up Labs/Studies Discharge Labs No Follow-up Labs Discharge Studies No Follow-up Studies Discharge Diet No qualifying data available. Discharge Activity No qualifying data available. Condition on Discharge Stable Discharge Disposition Home with spouse Information Provided To Patient and family Time Spent Greater than 35 minutes Digitally Signed by ANALY LARSON DO on 02/09/2022 09:01 AM [facility] Nurse Progress note Nursing GG Entered On: [...] Completed Sit to stand : Not Completed Chair/sin-er-yjbxk transfer : Not Completed Walk 10 ft : Not Completed Walk 50 ft with 2 turns : Not Completed Walk 150 ft : Not Completed Picking up object : Not Completed Mildred Molina RN - 02/09/2022 1:56 EDT Digitally Signed by Mildred Molina RN on 02/09/2022 01:56 AM Rian JaramilloMbknarqv98-28-8339 Nurse Progress note Nursing GG Entered On: 02/08/2022 13:34 EDT Performed On: 02/08/2022 13:34 EDT by IFNESSE Hollis Nursing GG's OT GG Grid Eating : Independent Oral Hygiene : Independent Toilet Hygiene : Partial/Moderate Toilet Transfer : Partial/Moderate FINESSE Hollis - 02/08/2022 13:34 EDT Digitally Signed by FINESSE Hollis on 02/08/2022 01:34 PM Rian JaramilloKssxfqbn83-93-8919 Nurse Progress note Nursing GG Entered On: [...] Completed Sit to stand : Not Completed Chair/tyn-gp-flbcm transfer : Not Completed Walk 10 ft : Not Completed Walk 50 ft with 2 turns : Not Completed Walk 150 ft : Not Completed Picking up object : Not Completed Mildred Molina RN - 02/08/2022 1:49 EDT Digitally Signed by Mildred Molina RN on 02/08/2022 01:49 AM Rian JaramilloCnldvaeq55-68-4113 Nurse Progress note Nursing GG Entered On: 02/07/2022 15:06 EDT Performed On: 02/07/2022 15:06 EDT by Rosalva James RN Nursing 's OT GG Grid Eating : Independent Rosalva James RN - 02/07/2022 15:06 EDT Digitally Signed by Rosalva James RN on 02/07/2022 03:06 PM [facility] HospitalFloioylw00-91-5179 Nurse Progress note Nursing GG Entered On: 02/07/2022 14:59 EDT Performed On: 02/07/2022 14:58 EDT by Rosalva James RN Nursing GG's OT GG Grid Eating : Independent Rosalva James RN - 02/07/2022 14:58 EDT Digitally Signed by Rosalva James RN on 02/07/2022 02:58 PM [place] [address]-05-2022 Nurse Progress note Nursing GG Entered On: 02/06/2022 12:22 EDT Performed On: 02/06/2022 12:21 EDT by Ofe Larios RN Nursing 's OT GG Grid Eating : Independent Ofe Larios RN - 02/06/2022 12:21 EDT Digitally Signed by Ofe Larios RN on 02/06/2022 12:21 PM [place] [address]-05-2022 Physical medicine and rehab Progress note Date [...] Alcohol abuse 7. Anemia Orders: Diet per Bedspring Assembler neosporin and dressing to incision Time Spent 25 min Digitally Signed by ANALY LARSON DO on 02/06/2022 10:23 AM Rian JaramilloEmcgqopf80-36-5846 Nurse Progress note Nursing GG Entered On: 02/05/2022 16:35 EDT Performed On: 02/05/2022 16:35 EDT by Sandrine Bansal RN Nursing GG's OT GG Grid Eating : Independent Sit to stand : Partial/Moderate Chair/fgd-ra-uizvv transfer : Partial/Moderate Sandrine Bansal RN - 02/05/2022 16:35 EDT Digitally Signed by Sandrine Bansal RN on 02/05/2022 04:35 PM Rian JaramilloYxaaskko31-33-2784 Nurse Progress note Nursing GG Entered On: 02/05/2022 9:55 EDT Performed On: 02/05/2022 9:55 EDT by Sandrine Bansal RN Nursing GG's OT GG Grid Eating : Independent Oral Hygiene : Set up & Clean up Sandrine Bansal RN - 02/05/2022 9:55 EDT Digitally Signed by Sandrine Bansal RN on 02/05/2022 09:55 AM Rian JaramilloTyhmfjzl43-53-2968 Physical medicine and rehab Progress note Rehab [...] Rate18(FEB 05 02:04)16(FEB 04 13:40)20(FEB 04 09:53) LJR075(FEB 05 02:04)110(FEB 04 15:57)120(FEB 05 02:04) DBP68(FEB [...] LARSON DO on 02/06/2022 07:52 AM Rian JaramilloXicahqer76-46-1554 Nurse Progress note Nursing GG Entered On: [...] Completed Sit to stand : Not Completed Chair/ydq-ci-prjgq transfer : Not Completed Walk 10 ft : Not Completed Walk 50 ft with 2 turns : Not Completed Walk 150 ft : Not Completed Picking up object : Not Completed Vianca Wynn RN - 02/05/2022 2:21 EDT Digitally Signed by Vianca Wynn RN on 02/05/2022 02:21 AM Rian JaramilloIpgoftil75-44-2624 Nurse Progress note RECEIVED PHONE MESSAGE FROM FIDEL GU ENGRAVER APPRENTICE DECORATIVE WITH NEXT REVIEW DATE- 02/09. Digitally Signed by FINESSE Burden on 02/04/2022 08:54 AM Rian JaramilloVoxeilyf88-94-5308 Physical medicine and rehab Progress note Rehab [...] discomfort. Medications (25) Active Scheduled: (8) balsam Hopkins-castor oil topical 87 mg-788 mg/g oint 60g 1 bacilio, Topical, BID budesonide 0.25 mg/2 mL Susp UD 0.25 mg 2 mL, Inhalation, BIDRT duloxetine [address] capsule 60 mg 1 cap(s), Oral, qDay escitalopram 5 mg tablet 5 mg 1 tab(s), Oral, qDay ipratropium 0.02% (0.5mg/2.5mL) UD 0.5 mg 2.5 mL, Inhalation, BIDRT [facility] communication order 1 EA, Miscellaneous, Daily pantoprazole [...] Minimum Maximum Temp36.6(FEB 03 09:26)36.6(FEB 03 09:26)36.6(FEB 03 09:26) Resp Rate20(FEB 03 16:42)18(FEB 03 09:26)20(FEB 03 16:42) [id number](FEB 03 16:42)91(FEB 03 09:26)104(FEB 03 16:42) DBPL [...] ANALY LARSON DO on 02/05/2022 12:40 PM [facility] HospitalDqjywogu07-68-7891 Nurse Progress note Nursing GG Entered On: 02/04/2022 3:11 EDT Performed On: 02/04/2022 3:11 EDT by Mildred Molina RN Nursing GG's OT GG Grid Toilet Hygiene : Independent Toilet Transfer : Supervision/Touching Assist Mildred Molina RN - 02/04/2022 3:11 EDT Digitally Signed by Mildred Molina RN on 02/04/2022 03:11 AM [facility] HospitalEijxbhpt36-41-7859 Note REFERRING PHYSICIAN: Analy Larson DO. CONSULTING PSYCHOLOGIST: Lai Phillips, PhD. REASON FOR REFERRAL: Psychological exam and opinion on medication adjustments. HISTORY OF PRESENT ILLNESS: Ms. May is a 66-year-old white female admitted to [facility] 01/27/2022 from [facility] after being found unconscious on the [...] balance and coordination. Ms. May lives in [place] with her significant other of 20 years, Mr. Moore. The patient was previously and . Has 3 kids. 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 She quit high school in the 11th grade when she became . CONCLUSIONS: Ms. May is a 66-year-old right-handed white female admitted to [facility] 01/27/2022 from [facility] after being found by her partner unconscious [...] Panic disorder, probably with generalized ruminative anxiety, zpmakrju-iu-afpszf. 3. Depression, probably recurrent, currently mild. LAI PHILLIPS, PhD GM/NTS JOB#: [id number] DICTATION ID#: [id number] Digitally Signed by LAI PHILLIPS PhD on 02/04/2022 01:28 PM [facility] HospitalEqtogcfs11-91-7009 Physical medicine and rehab Progress note Rehab [...] Patti UD 3 mL, Inhalation, QIDRT balsam Hopkins-castor oil topical 87 mg-788 mg/g oint 60g [...] Rate18(FEB 02 20:10)18(FEB 02 08:31)18(FEB 02 08:31) LNI987(FEB 03 06:06)L 89(FEB 02 16:28)125(FEB 02 21:39) [...] LARSON DO on 02/03/2022 02:32 PM Rian JaramilloIvzeywcu60-64-6669 Nurse Progress note Nursing GG Entered On: 02/02/2022 17:55 EDT Performed On: 02/02/2022 17:55 EDT by Facundo Morales RN Nursing GG's OT GG Grid Eating : Set up & Clean up Toilet Transfer : Partial/Moderate Sit to lying : Partial/Moderate Lying to sitting on side of bed : Partial/Moderate Sit to stand : Partial/Moderate Chair/zak-jl-vkoae transfer : Partial/Moderate Facundo Morales RN - 02/02/2022 17:55 EDT Digitally Signed by Facundo Morales RN on 02/02/2022 05:55 PM Rian JaramilloVdbcmelr99-70-5022 Nurse Progress note REVIEW FAX[facility] TO [facility] Digitally Signed by FINESSE Burden on 02/02/2022 [...] Rate18(FEB 01 23:17)18(FEB 01 07:34)20(FEB 01 15:57) [id number](FEB 01 23:17)116(FEB 01 23:17)126(FEB 01 07:34) DBP60(FEB [...] LARSON DO on 02/02/2022 01:49 PM Rian JaramilloZniwpoqb88-30-5501 Physical medicine and rehab Progress note Date [...] ANALY LARSON DO on 02/01/2022 11:34 AM [facility] HospitalRuojhrmo24-20-9264 Nurse Progress note Nursing GG Entered On: [...] Completed Sit to stand : Not Completed Chair/sxp-de-xuszw transfer : Not Completed Walk 10 ft : Not Completed Walk 50 ft with 2 turns : Not Completed Walk 150 ft : Not Completed Picking up object : Not Completed Vianca Wynn RN - 01/31/2022 0:02 EDT Digitally Signed by Vianca Wynn RN on 01/31/2022 12:02 AM [facility] Nurse Progress note Eating-05 Setup Oral hygiene-04 Supervision/Touching assistance Toileting hygiene-03 Partial/Moderate assistance Shower/bathe self-03 Partial/Moderate assistance Upper body dressing-06 Independent Lower body dressing-02 Substantial/Maximal assistance Putting on/Taking off footwear-03 Partial/Moderate assistance Roll left and right-04 Supervision/Touching assistance Sit to lying-04 Supervision/Touching assistance Lying to sitting on side of bed-04 Supervision/Touching assistance Sit to stand-03 Partial/Moderate assistance Chair/ahy-fc-rajom transfers-03 Partial/Moderate assistance Toilet transfers-03 Partial/Moderate assistance [...] FINESSE Lema on 01/30/2022 09:10 PM Rian JaramilloNjkzmzev65-88-4849 Nurse Progress note Nursing GG Entered On: 01/30/2022 13:48 EDT Performed On: 01/30/2022 13:48 EDT by FINESSE Hollis Nursing GG's OT GG Grid Eating : Independent Oral Hygiene : Independent Toilet Hygiene : Partial/Moderate Toilet Transfer : Partial/Moderate FINESSE Hollis - 01/30/2022 13:48 EDT Digitally Signed by FINESSE Hollis on 01/30/2022 01:48 PM Rian JaramilloVrpeynxe24-51-6617 Physical medicine and rehab Progress note Date [...] Alcohol abuse 7. Anemia Orders: Diet per Bedspring Assembler Time Spent 25 min Digitally Signed by ANALY LARSON DO on 01/30/2022 10:35 AM Rianbebe SotoRwebsxva96-29-4947 Nurse Progress note A complete drug regime review was completed upon admission. No potentia clinically significant medication issues were found. Digitally Signed by FINESSE Lema on 01/30/2022 06:50 AM Rian JaramilloSwpyfnmj88-80-2462 Nurse Progress note Nursing GG Entered On: 01/29/2022 13:29 EDT Performed On: 01/29/2022 13:29 EDT by FINESSE Hollis Nursing GG's OT GG Grid Eating : Independent Oral Hygiene : Independent Toilet Hygiene : Partial/Moderate Toilet Transfer : Partial/Moderate FINESSE Hollis - 01/29/2022 13:29 EDT Digitally Signed by FINESSE Hollis on 01/29/2022 01:29 PM Rian JaramilloRpoemfmi88-69-2387 Physical medicine and rehab Progress note Date [...] LARSON DO on 01/29/2022 11:27 AM Rian JaramilloXaggplua00-79-5777 Note Subjective Patient is currently sitting on [...] right side of head, well approximated VITALS LzzetgVinuOQKwnlzIKUrX5WUT8XdpjUv(kg) 01/29 03:3836.4--425028LO36/27 61.4 01/28 20:05----5231378AS20/26 64.6 01/28 16:2536.2110/254992183 2.0L/m 01/28 16:06----1767847-- 01/28 08:4835.897/077974105 2.0L/m 24 Hr Tmax: 36.4 at 01/29 [...] 3 mL, Soln, Inhalation, QIDRT, 0 balsam Hopkins-castor oil topical (Venelex 788 mg-87 mg/g topical ointment) Start: 01/28/22 9:51:00 EDT, Dose = 1 bacilio, Topical, BID, Apply to: heels, Ointment, 01/28/22 9:51:00 EDT budesonide (Pulmicort Respules) Start: 01/27/22 21:04:00 EDT, Dose = 0.25 mg, = 2 mL, Inhalation, BIDRT, 1st dose location: [facility], escitalopram Start: 01/27/22 20:02:00 EDT, Dose = [...] 0, 01/27/22 19:48:00 EDT acetaminophen (Tylenol) Start: 01/27/22 19:48:00 EDT, Dose = 650 mg, = 2 tab(s), Oral, q4h, PRN, Muscle pain, 0, 01/27/22:48:00 EDT albuterol Start: 01/27/22 21:01:00 EDT, Dose = 2.5 mg, = 3 mL, Inhalation, QIDRT, PRN, Shortness ofbreath (SOB), 0 bisacodyl Start: 01/27/22 20:02:00 EDT, Dose = 10 mg, = 1 supp, Rectal, qDay, PRN, Constipation, 01/27/22 20:02:00 EDT docusate (Colace) Start: 01/27/22:48:00 EDT, Dose = 100 mg, = 1 cap(s), Oral, BID, PRN, Constipation, 01/27/22 19:48:00 EDT glucagon (GlucaGen) Start: 01/27/22 19:48:00 EDT, Dose = 1 mg, = 1 mL, Intramuscular, AsDirected, PRN, Hypoglycemia, if unresponsive, NO IV ACCESS & blood glucose less than 60mg/dL. REPEAT x1 if still unresponsive., 1st dose location: [facility], 0, 01/27/22 19:48:00 EDT glucose (Dextrose 50% [...] IV Meds: None Problems (8) ACL tear (932840412) Alcohol abuse (60676870) Anemia (103642364) Anxiety (44855128) COPD (chronic obstructive pulmonary disease) (13799061) History of cranioplasty (056517345) History of stroke (1871971085) Subdural hematoma (8683166047) ASSESSMENT/PLAN: Acute right subdural hematoma status post decompressive craniotomy with flap and cranioplasty: Patient is to follow-up with Dr. Matute in 4 to 5 weeks at [facility] Bilateral lower extremity pain: Duplex scan obtained negative for DVT none reported at time of today's exam Anemia: Most recent hemoglobin level at 8.0 would like a follow-up CBC on Wednesday for ongoing monitoring no signs of bruising or bleeding Hypertension: Will monitor vitals closely did have an isolated episode of a systolic blood qfposhgd23 currently asymptomatic Tachycardia: At time of today's [...] HINA TURCIOS on 01/30/2022 12:20 PM Rian aJramilloGnfsvpfi77-64-3628 Nurse Progress note Nursing GG Entered On: 01/28/2022 16:59 EDT Performed On: 01/28/2022 16:59 EDT by Ofe Larios RN Nursing GG's OT GG Grid Eating : Set up & Clean up Ofe Larios RN - 01/28/2022 16:59 EDT Digitally Signed by Ofe Larios RN on 01/28/2022 04:59 PM Rian JaramilloUgmhfbca52-27-3528 Evaluation + Plan noteExtracted from: Title:Rehab Post Admission Physician Selena Piña thor:ANALY LARSON DO Date:01/28/22 Assessment/Plan 1. Anxiety [...] Estimated Length of Stay 2 weeks Rian Somis 07-27-2022 History and physical note Date of [...] bone > 5cm. SURGEON: Severo Jurado MD INDUSTRIAL SERVICE TECHNICIAN: Rachel Castaneda MD ANESTHESIA: General endotracheal anesthesia [...] LARSON DO on 01/28/2022 11:51 AM Rian JaramilloMefkwkxy54-50-1086 Nurse Progress note Patient received and acknowledged the privacy act statement and the data collection information summary on admission. Patient also received and acknowledged the rehab disclosure form with the expected therapy and that she has [employer] Medicare insurance. Digitally Signed by FINESSE Lema on 01/28/2022 11:47 AM Rian JaramilloAlcswtol00-02-9211 Nurse Progress note Nursing GG Entered On: 01/28/2022 11:29 EDT Performed On: 01/28/2022 11:29 EDT by Ofe Larios RN Nursing GG's OT GG Grid Eating : Set up & Clean up Ofe Larios RN - 01/28/2022 11:29 EDT Digitally Signed by Ofe Larios RN on 01/28/2022 11:29 AM [facility] HospitalPqkldlzt45-85-3173 Nurse Progress note Nursing GG Entered On: 01/27/2022 23:17 EDT Performed On: 01/27/2022 23:17 EDT by Luis Metzger RN Nursing GG's OT GG Grid Eating : Set up & Clean up Luis Metzger RN - 01/27/2022 23:17 EDT Digitally Signed by Luis Metzger RN on 01/27/2022 11:17 PM Rianbebe JaramilloLbfigsbk58-73-1027 Nurse Progress note Nursing GG Entered On: 01/27/2022 20:11 EDT Performed On: 01/27/2022 20:11 EDT by Luis Metzger RN Nursing GG's OT GG Grid Eating : Set up & Clean up Luis Metzger RN - 01/27/2022 20:11 EDT Digitally Signed by Luis Metzger RN on 01/27/2022 08:11 PM Rianbebe JaramilloRkyzbvhx25-16-1866 Miscellaneous Notes* Nursing Notes - Kaylen Payton RN - 01/27/2022 4:36 PM EDT Called [facility] and gave report to Des KILPATRICK. Faxed AVS and POONAM to facility. 1655 [facility] to [facility]. PIV removed. Pt left [...] Pt c/o pain while peeing. Urinanalysis? Courtney [id number] * Plan of Care - Shahrzad Corrales [...] Paged x [phone] NS3 Night RES 0872 Edita May Pt has Hx. of CHF, HTN noticed MIV fluids running are you wanting to continue, Fluid overload concern? Also pt. head Dressing is saturated and needs changed which first dressing change usually done by surgeon ashvin [id number] * Plan of Care - Zarina Mcdonald, [...] - 01/22/2022 7:13 AM EDT Paged NS3 [phone] B8E Gerber Good morning Pt Hgb this AM dropped 1 point to 7.6 from 8.6. Pt did have surgery yesterday but PACU stated very little blood loss. Do you want to recheck in 6hrs? or just monitor randycheck in AM? Thanks Keya #[id number] * Plan of Care - Marga Gould [...] bone > 5cm. SURGEON: Severo Jurado MD INDUSTRIAL SERVICE TECHNICIAN: Rachel Castaneda MD ANESTHESIA: General endotracheal anesthesia [...] - 01/21/2022 12:55 PM EDT Paged NS3 [phone] B8Lora Gerber pt back from OR swallow screening passed are we able to get a diet? thank you Keya [id number] * Nursing Notes - Maren Travis RN - 01/21/2022 11:54 AM EDT Report called to admitting unit. PACU admission assessment remains unchanged, dressings intact. Pt transported on telemetry and pulse ox with certified television engineering teacher at bedside to [place] and then [place] [id number]. 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.2] POST OPERATIVE DIAGNOSIS Post-Op Diagnosis Codes: * Skull defect [M95.2] * Acquired skull defect [M95.2] PROCEDURE PERFORMED Procedure(s) (LRB): CRANIOPLASTY FOR SKULL DEFECT (Right) PRIMARY CLOSURE Yes, 2-0 nylon INTRAOPERATIVE FINDINGS R cranioplasty SURGEON Surgeon(s) and Role: * Severo Jurado MD - Primary ANESTHESIOLOGIST Anesthesiologist: Mildred Basurto MD DIRECTOR GAME: Bonita Osuna APRN-DIRECTOR GAME Android Ui Developer: MARY LOU Hobbs SURGICAL STAFF Rx Specialist: Pepper Gabriel RN Relief Rx Specialist: Carla Lee RN Relief Scrub: Mamie Mcdonald [...] page sent to MD Liu: Edita, Keri, Gerber: FYI, she passed her swallow. She really wants the dobhoff out. Any plans to remove that today? Thanks, Bárbara [id number] * Nursing Notes - Bárbara Garcia RN - 01/20/2022 2:02 PM EDT Text page sent to MD Ta: Edita Gerber Yusuf: Pt appears to have a bleeding hemorrhoid's. Can you place a tux pad order for her? Carlotta one when providing care and bright red blood on pad, none noted in stool. Did not visualize one when looking. Thanks, Bárbara [id number] * Nursing Notes - Pepper Valero RN - 01/20/2022 8:47 AM EDT Paged NS3: 2TYI [id number] Luiza May: Dr. Rawls called this patient's brother last night and left a message. he would like to speak with someone today and is at bedside. His name is Antelmo Everett [phone] * Plan of Care - Cindy Spring [...] PM EDT Sent text-page to Dr. Nava F5T 657 Luiza May: pt feels anxious, unable to give hydroxyzine until 185. Is there anything else that can be ordered PRN?- Farzaneh [id number] * Plan of Care - Sinai Saenz [...] Alcala - 01/19/2022 9:12 AM EDT Problem: GREY TENDER - Dysphagia Goal: PO Trial 3 Description: [...] Nakia Heath MD, BS - [facility] - Pt brother states pt has been taking Ambien for years to help her sleep. Could you order this for pt? Melatonin and Seroquel did not help her sleep last night.Thanks, Marni KILPATRICK MD acknowledged via phone call. MD stated they will discuss with team. 1500: Nakia Heath MD, BS - 872 - [place] - Would Zoloft help pt sleep tonight? [...] or geriatrics if AMS persists. Bárbara Moran RN-[facility] Pager: [phone] [facility] Phone: [phone] * Nursing Notes - Marni Naylor RN - 01/17/2022 12:11 PM EDT Nakia Heath MD, [facility] - 872 - [place] - WBC have increased last two days to 12.86. Pt is warm and sweating, which is a new change. Pt also more restless, calling out more. I'm worried pt has infection. Do you want to get lactate and cultures? Marni KILPATRICK MD acknowledged via phone call. stated they will discuss with team. * [...] they would be behavioral sit not SI. Ashvin Puga [id number] * Plan of Care - Marni Naylor [...] Nakia Jc MD, BS - 872 - [place] - FYI pt was hallucinating a snake and spider [...] 1. Continue current diet. Diet advancement per GREY TENDER. - pt declines oral nutrition supplements 2. [...] 12:46 PM EDT Secure chat with Voll GAMING DEALER, Pt family notified RN that they gave 2 puffs of albuterol to pt at 1225. Would you like me to chart that family administered or would you rather chart? I educated family that GAMING DEALER comes to give inhalers so they don't have to. ThanksMarni RN * Nursing Notes - Marni Naylor RN - 01/16/2022 7:27 AM EDT Nakia Nava MD, [facility] - 872 - [place] - Can you renew sitter order? Marni Larson RN, MD renewed sitter order. * Nursing Notes - Marni Naylor RN - 01/15/2022 6:00 PM EDT 01/15 0600: Nakia MENDES, [facility] - 872 - [place] - Pt has 30ml flushes 4 times daily. Her UO is averaging about 38ml/hr, but would you want to increase flushes to prevent dehydration as pt isn't drinking much PO. Marni Larson RN 01/16 07: called. Told RN to encourage PO intake. * Nursing Notes - Marni Naylor RN - 01/15/2022 5:32 PM EDT Nakia MENDES, [facility] - 872 - [place] - Could you order eyedrops for pt? Eye's are dry. Marni Larson RN * Nursing Notes - Marni Naylor RN - 01/15/2022 2:47 PM EDT Nakia Nava MD, [facility] 872 - [place] - Can you change Tylenol order for [...] Contact SPRING as needed. Yaritza Dickinson RN [facility] Pager: [phone] [facility] Phone: [phone] * Nursing Notes - Marni Naylor RN - 01/15/2022 9:25 AM EDT Nakia Nava MD, [facility] - [place] - [place] - Pt does not have consent for blood this admission. Can youget consent? Thanks, Marni KILPATRICK MD called RN. MD to call family to get consent. 1102: Nakia Nava MD, [facility] - [place] May - Consent for blood not seen in pt chart. Could you make sure you uploaded this? Thanks, Marni KILPATRICK * Nursing Notes - Diane Schwartz RN - 01/14/2022 9:53 PM EDT Page to MD Rawls: Fer8E, 0872/Gerber Sousa, Pt continuing to have hallucinations. Hasn't slept much - delirium? Consistently crying out for help for nonspecific needs - very anxious and labile despite PRNs. Please advise.Thanks, Diane [phone] [facility] [employer] Page to MD Rawls: Edita 08Keri/Gerber Sousa, Please place bladder scan and straight cath orders. Thanks, Diane Schwartz RN, [facility] AYLIEN[employer] Page to MD Rawls: Edita, 0872/Gerber Sosua, Pt expressed thoughts of SI. No plan but doesn't feel life is worth living anymore. Answered orientation questions properly, but still confused and hallucinating. Please advise, Diane Schwartz RN, OS AYLIENXcrelocalityge * Nursing Notes - Angelic Nye RN - 01/14/2022 1:24 PM EDT Pageanjelica ROLLINS 3, re: B8e Gerber 872: Just an FYI patient seems to [...] AM EDT Paged NS 3, re: B8e Gerber 872: Patient transferred to floor. I&O need changed from q1 to q4/q8. Please discontinue ICU orders (tele/pulse ox, a.line, CVC, C- spine, q1 pain). Paged NS 3, re: Fer8lora May 872: Do not think patient will consume enough PO intake to not need TFrunning. Was reluctant to take one bite of meds in puree this AM. Refused anything to drink. Paged NS 3, re: B8e Gerber 872: Sorry for multiple pages about this [...] Solis - 01/13/2022 8:20 AM EDT Problem: GREY TENDER - Dysphagia Goal: PO Trial 3 Description: Patient will swallow trials of advancing solids demonstrating appropriate alertness, timely/effective mastication, bolus formation and oral bolus transit without overt clinical signs/symptoms of aspiration, across 1-3 sessions to determine readiness for diet advancement. Outcome: Ongoing Problem: GREY TENDER - Language Goal: Command Following Description: Patient [...] questions/questions related to care. Outcome: Ongoing Problem: GREY TENDER - Cognition Goal: Orientation Goal Description: Patient [...] Ongoing * Plan of Care - GIRISH Lestre - 01/12/2022 3:00 PM EDT Problem: GREY TENDER - Dysphagia Goal: PO Trial 2 Description: [...] Next of Kin: 1. Dex Patricia, spouse [phone] Advanced Care Planning Has the patient completed Advance Directives?: Not Completed Referral to Social Work for Advance Care Planning? : Patient Declines Legal Next of Kin Does the patient have a Guardian?: No Spouse: Yes Name and Contact information: dex patricia Significant Other [phone] Referral to Social Work to Identify Legal [...] Juno Monroy MD Orthopaedic Surgery, PGY4 Pager #[phone] * Plan of Care - Pepper Mcgowan [...] free water/d. 2. Diet: NPO. Advancement per GREY TENDER. 3. RD to follow. * Plan of [...] care. Outcome: Ongoing * Nursing Notes - Oef Contreras RN - 01/10/2022 3:58 PM EDT DHT inserted via R nares to 60cm with Cortrak guidance and air heard over epigastric area. 200ml instilled and tube advanced to 90cm. Secured with nasal bridle. Will obtain x-ray to confirm placement. * Plan of Care - GIRISH Childers - 01/10/2022 11:50 AM EDT Problem: GREY TENDER - Dysphagia Goal: PO Trial 2 Description: [...] post hospitalization care will be discharge to [facility]. * Op Note - Lowell Bryant MD - 01/08/2022 6:43 PM EDT [facility] Operative Record Surgeon: Severo Jurado MD Clerical Coordinator: Lowell Bryant MD Pre-operative Diagnosis: Right subdural [...] proceeded to make bur holes using the city marshal bit. A bur hole was made over the temporal bone. In addition, 1 was made at the keyhole. Another bur hole was made in the posterior parietal area, Once this was done, a curette as well as a [place] were used to adequately strip the dura [...] DuraGen was placed on top of the coquille dura. Then a drain was placed. This was a 10 romanian round PVC drain which was tunneled posteriorly [...] the critical portions of the operation and Priya Jiménez and Julissa were also immediately available for the remainder of the operation. Lowell Bryant MD, PGY7 Neurological Surgery Page [phone] with questions * Brief Op Note - Lowell Bryant MD - 01/08/2022 6:42 PM EDT Luiza Brown Gerber ([id number]) PRE OPERATIVE DIAGNOSIS Subdural hematoma [S06.5X9A] POST OPERATIVE DIAGNOSIS Post-Op Diagnosis Codes: * Subdural hematoma [S06.5X9A] PROCEDURE PERFORMED Procedure(s) (LRB): Right craniotomy/craniectomy for hematoma evacuation (Right) PRIMARY CLOSURE Yes INTRAOPERATIVE FINDINGS large R SDH hematoma, [facility] performed SURGEON Surgeon(s) and Role: * Severo Jurado MD - Primary ANESTHESIOLOGIST Anesthesiologist: Miguel Angel Kay MD DIRECTOR GAME: Arnav Chin APRN-DIRECTOR GAME Android Ui Developer: MARY LOU López SURGICAL STAFF Rx Specialist: Yaritza Collins RN Resident Assisting: Rachel Castaneda MD; Lowell Bryant MD Computer Specialist: Panfilo Mensah COMPLICATIONS None ESTIMATED BLOOD LOSS [...] Rings given to security documented in this [facility]07-26-2022 History of Present illness Narrative* Cheo [...] lovenox Dispo: IPR pending Please page NS3 ([id number]) with questions. Active Problems: SDH (subdural hematoma) Anemia (Low HGB) Electrolyte disorder (K, Cl, or Na) Post-operative state Present on Admission: SDH (subdural hematoma) Anemia (Low HGB) Electrolyte disorder (K, Cl, or Na) * RUI Gaviria - 01/27/2022 12:24 PM EDT Social Work Final Discharge Plan and Transportation Final Discharge Planning Discharge Disposition: Inpatient Rehab Facility Services at Discharge: Care Home, Occupational Therapy, Physical Therapy, Speech Therapy Community Agency Name(s) For Handoff: Rian Jaramillo Name For Handoff: gas charger Phone For Handoff: [phone] Fax For Handoff: [phone] Selected Continued Care - Admitted Since 01/08/2022 Destination Coordination complete. Service Provider Selected Services Address Phone Fax Patient Preferred [facility] Inpatient Rehabilitation [address] [place] [id number] -- -- Plan Plan: Patient to discharge to inpatient rehab hospital Patient/Family In Agreement With Plan: yes Horticultural Farmer Called: Yes Name of Transport Company: Other [...] updated the bedside RN, CCM, facility and patient/financial foundations representative of the discharge plan and transport time. Patient/Attendant Lodging Facilities remain in agreement with the discharge plan. Bedside RN to call report and fax AVS/POONAM. Ambulance form left at the head gauge unit operator desk with a request for a printed transfer report. Discharge Instruction for Bedside RN: 1. Confirm the Ambulatory Order is in the POONAM. 2. Print the POONAM and AVS. 3. Print the Discharge Summary for facilities (if available). 4. Fax POONAM, AVS and Discharge Summary (when applicable) to agency or facility. 5. Call the agency or facility for report. RUI Tiwari Manager Fiber [facility] 8th floor [phone] * Sinai Saenz OT - 01/26/2022 3:30 [...] safety. Mobility Assessment/Intervention: Supine to Sit Mobility [place] Level: Supine->Sit: stand-by assist Bed Features/Set-up: Supine->Sit: Head of bed elevated, Use of bed rail Skilled Rationale: Cues for increased safety, Technique of activity, Tactile cues, Verbal cues Skilled Intervention/Details: Supine->Sit: Mostly cueing for safety, mildly increased time/effort for performance. Transfer Assessment/Intervention: Sit to Stand Transfer [place] Level: Sit->Stand: contact guard assist (x 1 [...] full upright posture. Stand to Sit Transfer [place] Level: Stand->Sit: contact guard assist Assistive Device: Stand->Sit: gait belt, 2 wheeled walker (Non-skid sock; Trial from EOB and trial to ambulate to sink completed with 2 wheeled walker, otherwise, no DME utilized for transfers.) Skilled Rationale: Cues for increased safety, Technique of activity, Tactile cues, Verbal cues, Hand placement Bed-Chair Transfer [place] Level: Bed<->Chair: minimum assist (75% patient effort) Assistive Device: Bed<->Chair: gait belt, 2 wheeled walker (Non-skid socks.) Skilled Rationale: Cues for increased safety, Technique of activity, Tactile cues, Verbal cues, Hand placement, Sequencing, Positioning Skilled Intervention/Details: Bed<->Chair: Mostly cueing for efficient/safe management of walker/body positioning within walker and to properly align hips to bedside chair; Side-stepping towards the right. Functional Mobility: Functional Mobility [place] Level: Functional Mobility/Gait: (CGA-minimal assistance) Assistive Device: [...] cues for visual limitations. Outcome Score(s): CURRENT -LOCATED WITHIN [facility] Daily Activity Inpatient Short Form Putting on/Taking Off Lower Body Clothin - A Lot of Assistance Bathin - A Lot of Assistance Toiletin - A Lot of Assistance Putting on/Taking Off Upper Body Clothin - A Little Assistance Groomin - A Little Assistance Eatin - No Assistance CURRENT -PAC Activity Raw Score: 16 CURRENT AM-PAC Activity [...] authorization, transportation Current Referrals and Status 1. [facility] ([facility]) RESERVED SENIOR NETWORK SYSTEMS ENGINEER spoke with IPR liaison who confirmed that precert remains pending. IPR request RAPID COVID testwithin 24 hours of admission. SENIOR NETWORK SYSTEMS ENGINEER rescheduled transport with [facility] for soonest available Sunday 01/28 at 10:45-11am with [facility]. ADDENDUM: SENIOR NETWORK SYSTEMS ENGINEER informed that precert was approved. SENIOR NETWORK SYSTEMS ENGINEER contacted numerous transport companies. Soonest available is Saturday 01/27 at 5:30PM with [facility]. RUI Tiwari Manager Fiber [facility] 8th floor [phone] * RUI Perez - 01/25/2022 8:36 AM EDT SW spoke with patients daughter on the phone after receiving a chat that the Ameena, patients daughter wanted to talk about her mothers discharge plan. Ameena agrees with discharge to [facility].We are still pending percert. Ivonne Monroe LMS Manager Fiber Addendum: Still no precert. Left message for [place] at [place] in [place]. * Rakesh Ta MD - [...] lovenox Dispo: IPR pending Please page NS3 ([phone]) with questions. Active Problems: SDH (subdural hematoma) Anemia (Low HGB) Electrolyte disorder (K, Cl, or Na) Present on Admission: SDH (subdural hematoma) Anemia (Low HGB) Electrolyte disorder (K, Cl, or Na) * RUI Perez - 01/24/2022 1:26 PM EDT Spoke with Renetta ([phone]) at [facility]. Still pending precert. Ivonne Monroe S Manager Fiber * Joy Rawls Jr., MD - 01/24/2022 [...] Lovenox Dispo: IPR pending Please page NS3 ([phone]) with questions. Active Problems: SDH (subdural hematoma) [...] authorization, transportation Current Referrals and Status 1. [facility] ([facility]) RESERVED Precert remains pending. IPR request RAPID COVID test within 24 hours of admission. LATONYA arranged transport for Friday 01/26 at 11-12pm with [employer]. Melina HANKS, RUI Manager Fiber [facility] 8th floor [phone] For Social Work assistance for the weekend, please contact for assistance as needed (8:00am - 4:30pm): [facility]: [phone] Marge: [phone] Bernardo: [phone] Marcelo/MICU/PCU Jeet: [phone] * Shahrzad Corrales, RD - 01/23/2022 9:38 AM EDT NUTRITION FOLLOW [...] bedside. Pt denies appetite/intake or weight changes DIRECTOR OF PHYSIOTHERAPY SERVICES. Dislikes Ensures and wants them discontinued. Pt [...] (21% in 3 months). Scheduled Meds Include: wuwfhxmnml-skmnhejjjwanzw-Nngvdlrqhy 1 puff Inhalation BID DULoxetine 60 mg [...] 55 kg, admit wt Estimated Kcal Needs: 8100-6160 (25-30 kcal/kg admit wt) Estimated Pro Needs: 80-110 (1.5-2 g/kg admit wt) Estimated fluid needs: 6038-3404 (30-35 ml/kg admit wt) Malnutrition Diagnosis: Indications of Malnutrition: Unable to assess- unable to obtain clear weight history, new standing wt requested. based on the AND/ASPEN Malnutrition Criteria [address], LD Registered Dietitian Pager # [phone] 01/23/22 Please note I am providing cross coverage for this day. For primary Dietitian contact information or up to date coverage please see [employer] schedule for Dietitian Production Operations Manager for the appropriate unit for Wednesday-Wednesday [...] Lovenox Dispo: IPR pending Please page NS3 ([phone]) with questions. Active Problems: SDH (subdural hematoma) [...] Lovenox Dispo: pending PTOT Please page NS3 ([phone]) with questions. Active Problems: SDH (subdural hematoma) [...] authorization, transportation Current Referrals and Status 1. Rian Jaramillo (TREVA) ROBB SENIOR NETWORK SYSTEMS ENGINEER sent clinical updates to IPR via AIDIN. Patient in agreement with IPR location as [facility] [place] was not available. IPR to initiate precert. SENIOR NETWORK SYSTEMS ENGINEER to continue following. 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 Mobility Assessment/Intervention: Sit to Supine Mobility [place] Level: Sit->Supine: contact guard assist Bed Features/Set-up: Sit->Supine: Flat Skilled Rationale: Positioning Transfer Assessment/Intervention: Sit to Stand Transfer [place] Level: Sit->Stand: minimum assist (75% patient effort) [...] weightshift) at RW Stand to Sit Transfer [place] Level: Stand->Sit: minimum assist (75% patient effort) [...] improved safety and controlled descent. Toilet Transfer [place] Level: Toilet: minimum assist (75% patient effort) [...] STS at RW Functional Mobility: Functional Mobility [place] Level: Functional Mobility/Gait: minimum assist (75% patient [...] manuevering, particularly on turns. Outcome Score(s): CURRENT [facility] Daily Activity Inpatient Short Form Putting on/Taking Off Lower Body Clothin - A Little Assistance Bathin - A Little Assistance Toiletin - A Lot of Assistance Putting on/Taking Off Upper Body Clothin - A Little Assistance Groomin - A Little Assistance Eatin - No Assistance CURRENT [facility] Activity Raw Score: 18 CURRENT [facility] Activity Functional Limitation/Modifier: 46.65% Currently Impaired [...] Acute Physical Therapy Treatment Prior to Admission [facility] score(s): PRIOR LEVEL AM-PAC Mobility Raw Score: [...] day of multi-disciplinary rehab to return to [facility] Mobility equipment available at home: none used [...] EOB Mobility Assessment/Intervention: Supine to Sit Mobility [place] Level: Supine->Sit: contact guard assist Bed Features/Set-up: Supine->Sit: Head of bed elevated Skilled Rationale: Verbal cues, Tactile cues, Hand placement, Technique of activity Skilled Intervention/Details: Supine->Sit: supine to sit to right side of bed with CGA with verbal/tactile cues for instruction on transfer technique. Transfer Assessment/Intervention: Sit to Stand Transfer [place] Level: Sit->Stand: minimum assist (75% patient effort) Assistive Device: Sit->Stand: gait belt Skilled Rationale: Verbal cues, Tactile cues, Hand placement, Technique of activity Skilled Intervention/Details: Sit->Stand: x3 trials: once from EOB, twice from chair. PT provided verbal/tactile cues for hand placement and instruction on transfer technique. Bed-Chair Transfer [place] Level: Bed<->Chair: minimum assist (75% patient effort) Assistive Device: Bed<->Chair: gait belt Skilled Rationale: Verbal cues, Tactile cues, Hand placement, Technique of activity Skilled Intervention/Details: Bed<->Chair: stand pivot transfer from EOB to chair to the leftwith min A and PT provided verbal/tactile cues for instruction on transfer technique. Gait/Functional Mobility Assessment/Intervention: Gait Assessment [place] Level: Gait: minimum assist (75% patient effort) [...] and improved foot placement. Outcome Score(s): CURRENT [facility] Basic Mobility Inpatient Short Form Turning [...] with a railin - Total Assistance CURRENT [facility] Mobility Raw Score: 16 CURRENT [facility] Mobility Functional Limitation/Modifier: 54.16% Currently Impaired [...] with discharging hospital?: No Anticipated discharge disposition: Care Home Facility. Pending PT/OT Anticipated Services at Discharge: Physical Therapy, Occupational Therapy, Care Home, Outpatient follow up, Wound/drain/line/ostomy-supplies Explanation of Barriers: Pending medical stability Readmission Risk Score Risk of Readmission: 4.6 Category Reference: High:16-100 Mod-High:10-16 Mod-Low: 5-10 Low: 0-5 Philly BROWN RN Clinical Cushion Builder [phone] * Zarina Mcdonald PT - 01/21/2022 7:59 AM EDT Physical Therapy Attempt Note 01/21/2022 PT Therapy Completed: Attempted Attempted Reason: Patient is unavailable due to test/procedure (at OR) Zarina Mcdonald PT Time In: 0759 Time Out: 758 Total Visit Time: 0 [...] Lovenox Dispo: pending PTOT Please page NS3 ([phone]) with questions. Active Problems: SDH (subdural hematoma) [...] place, but TF held. MBS completed by GREY TENDER. Oral diet was advanced from pureed to [...] (Calculated): 52.4 kg Estimated Nutrition Needs: EEN: 4645-9172 (25-30 kcal/kg admit wt) EPN: 80-110 (1.5-2 g/kg admit wt) Malnutrition Diagnosis: Indications of Malnutrition: Unable to assess (unable to obtain detailed PO history prior to admission, significant wt loss in last 3 months per chart review, NFPE unremarkable) based on the AND/ASPEN Malnutrition Criteria [address], LD, [facility]- Pager #[phone] Please note I am providing cross coverage for this day. For primary Dietitian contact information or up to date coverage please see [email or web address] schedule for Dietitian Production Operations Manager for the appropriate unit for Wednesday-Wednesday [...] depression Interventions Intervention Needed? No RUI Tiwari Manager Fiber [facility] 8th floor [phone] * RUI Gaviria - 01/20/2022 12:18 PM EDT 01/20/22 1218 Safety Goals Safety Plan Completed No SENIOR NETWORK SYSTEMS ENGINEER met with patient at bedside to complete [...] other needs at this time. RUI Tiwari Manager Fiber [facility] 8th floor [phone] * Lowell Bryant MD - 01/20/2022 11:04 [...] Lovenox Dispo: pending PTOT Please page NS3 ([phone]) with questions. Active Problems: SDH (subdural hematoma) [...] free, Insurance Authorization Current Referrals and Status [facility] - RESERVED IPR: [facility] -sent pending review [facility] -sent pending review [facility] ([facility]) -sent pending review SENIOR NETWORK SYSTEMS ENGINEER informed that PT/OT now recommending IPR level of care. SENIOR NETWORK SYSTEMS ENGINEER sent IPR referrals in [place], pending review/acceptance. If patient discharges to SNF. SNF cannot accept with NG tube and will need COVID test within 48 hours of admission. Patient will also need precert. SENIOR NETWORK SYSTEMS ENGINEER to continue following. 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 Active Problems: SDH (subdural hematoma) [...] ability to efficiently dual task.) Memory: Decreased half-way memory, Decreased short term memory Problem Solving: [...] Thread RUE, Thread LUE, Pull up arm, gizzard skin remover head, Ties, Attention, Initiation, Sequencing, Problem solving, [...] shift. Mobility Assessment/Intervention: Supine to Sit Mobility [place] Level: Supine->Sit: minimum assist (75% patient effort) [...] midline. Transfer Assessment/Intervention: Sit to Stand Transfer [place] Level: Sit->Stand: moderate assist (50% patient effort) [...] retropulsive lean/weight shift. Stand to Sit Transfer [place] Level: Stand->Sit: minimum assist (75% patient effort) Assistive Device: Stand->Sit: gait belt (Non-skid socks.) Skilled Rationale: Cues for increased safety, Initiation and execution of task, Technique of activity, Controlled descent for sitting, Arm in arm, Tactile cues, Verbal cues, Hand placement, Sequencing, Positioning, Ischial assist Bed-Chair Transfer [place] Level: Bed<->Chair: moderate assist (50% patient effort) [...] hips to chair. Functional Mobility: Functional Mobility [place] Level: Functional Mobility/Gait: moderate assist (50% patient effort) Assistive Device: Functional Mobility/Gait: gait belt (Non-skid socks.) Functional Mobility Distance: (Few feet forward from bedside chair to sink within room.) Skilled Intervention/Details - Functional Mobility/Gait: Moderate unsteadiness with pt presenting with retropulsive/posterior lean/weight shift and decreased coordinated LE movements, but no LOB/SOB experienced. Outcome Score(s): CURRENT -LOCATED WITHIN [facility] Daily Activity Inpatient Short Form Putting on/Taking Off Lower Body Clothin - A Lot of Assistance Bathin - A Lot of Assistance Toiletin - Total Assistance Putting on/Taking Off Upper Body Clothin - A Lot of Assistance Groomin - A Lot of Assistance Eatin - Total Assistance ([place].) CURRENT AM-PAC Activity Raw Score: 10 CURRENT AM-PAC Activity Functional Limitation/Modifier: 74.70% Currently Impaired in [...] day of multi-disciplinary rehab to return to [facility] Mobility equipment available at home: none used [...] time) Bed Mobility: Supine to Sit Mobility [place] Level: Supine->Sit: minimum assist (75% patient effort) [...] new gown. Transfers: Sit to Stand Transfer [place] Level: Sit->Stand: moderate assist (50% patient effort) Assistive Device: Sit->Stand: gait belt Skilled Rationale: Verbal cues, Tactile cues, Positioning, Sequencing, Hand placement, Facilitate anterior shift, Full extension to upright positioning/posture Skilled Intervention/Details: Sit->Stand: x4 from EOB, x1 from recliner Stand to Sit Transfer [place] Level: Stand->Sit: (min/modA) Assistive Device: Stand->Sit: gait belt Skilled Rationale: Verbal cues, Tactile cues, Hand placement, Facilitate anterior shift, Controlleddescent for sitting Skilled Intervention/Details: Stand->Sit: x3 to EOB, x2 to recliner; good carryover of immediatecues, limited carryover from trial to trial. Bed-Chair Transfer [place] Level: Bed<->Chair: moderate assist (50% patient effort) Assistive Device: Bed<->Chair: gait belt, hand held assist Skilled Rationale: Verbal cues, Tactile cues, Sequencing, Facilitate anterior shift Skilled Intervention/Details: Bed<->Chair: Facilitation to reduce retropulsion, allowing for improved lateral weight shift and BLE advancement to side step to chair. Gait/Functional Mobility: Gait Assessment [place] Level: Gait: moderate assist (50% patient effort) [...] Outcome: Progressing Toward Goal * Elda Munoz, GREY TENDER - 01/19/2022 9:12 AM EDT Acute Care Speech Language Pathology Treatment Diet Recommendations: Recommended Method of Nutrition: PO Recommended Diet Grade: regular Recommended Liquid Consistency: liquid- thin (IDDSI 0) Medications: (whole or crushed in puree) Swallow Strategies: (small single bites/sips) Type of Cues/Supervision: 1:1 supervision Assistance: nurse/aide, family Referrals: MBS Discharge Recommendations: Based on the below outcome measures/assessment score(s),, and GREY TENDER clinical judgment, discharge destination recommendation is: Pending instumental swallow assessment Barriers to discharge home: Need for 1:1 assist to ensure safety with all PO intake Supporting factors for discharge setting: Impaired swallow function limiting nutritional status andsafety with oral intake Acute GREY TENDER Outcomes Tracking Communicate basic wants and needs?: [...] of swallow function to most appropriately guide GREY TENDER plan of care. Pt/family in agreement to [...] Respiratory Status: 2L via nasal cannula. Acute GREY TENDER Goals Plan of Care by Elda Munoz, GREY TENDER at 01/19/2022 9:12 AM Version 1 of 1 Problem: GREY TENDER - Dysphagia Goal: PO Trial 3 Description: [...] as able ID: no acute issues FEN/GI: GREY TENDER for further recs/evaluation; dysphagia diet, encourage PO PPX: SCDs, Lovenox Dispo: pending PTOT Please page NS3 ([phone]) with questions. Active Problems: SDH (subdural hematoma) [...] O2 as able ID: Ancef completed FEN/GI: GREY TENDER for further recs/evaluation; dysphagia diet, encourage PO PPX: SCDs, Lovenox Dispo: pending PTOT Please page NS3 ([phone]) with questions. Active Problems: SDH (subdural hematoma) Anemia (Low HGB) Electrolyte disorder (K, Cl, or Na) Present on Admission: SDH (subdural hematoma) * Lupe Keane RD - 01/16/2022 5:14 PM EDT Have reviewed student's documentation and plan of care. Agree with note below. Lupe Keane RD,LD,[facility] #[id number] NUTRITION FOLLOW UP Nutrition Recommendations and Plan of Care: 1. Continue current diet. Diet advancement per GREY TENDER. - pt declines oral nutrition supplements 2. [...] had been NPO since last RD visit. GREY TENDER recommendation PO dysphagia diet and thin liquids [...] 1+ R arm Estimated Nutrition Needs: EEN: 6836-4934 (25-30 kcal/kg admit wt) EPN: 80-110 (1.5-2 [...] to admission. Lisa Alexander, Dietetics Student Pager #[phone] * RUI Gaviria - 01/16/2022 11:38 AM [...] free, Insurance Authorization Current Referrals and Status [facility] - RESERVED Pending medical progressiion of patient. SNF cannot accept with NG tube and will need COVID test within 48 hours of admission. Patient will also need precert. SENIOR NETWORK SYSTEMS ENGINEER to continue following. Melina HANKS [facility] Manager Fiber [facility] 8th floor [phone] For Social Work assistance for the weekend, please contact for assistance as needed (8:00am - 4:30pm): [facility]: [phone] Marge: [phone] Bernardo: [phone] Marcelo/MICU/PCU Jeet: [phone] * RUI Gaviria - 01/16/2022 11:35 AM EDT Reason for Consult: Suicide Safety Plan Consulted By: Treatment Team Assessment Patient with altered mental status and delirium Action Plan SENIOR NETWORK SYSTEMS ENGINEER to complete safety plan with patient once medically appropriate. RUI Tiwari Manager Fiber [facility] 8th floor [phone] For Social Work assistance for the weekend, please contact for assistance as needed (8:00am - 4:30pm): [facility]: [phone] Marge: [phone] Bernardo: [phone] Marcelo/MICU/PCU Jeet: [phone] * Lisa Benjamin - 01/16/2022 10:05 AM EDT NUTRITION FOLLOW UP Nutrition Recommendations and Plan of Care: 1. Continue current diet. Diet advancement per GREY TENDER. - pt declines oral nutrition supplements 2. [...] had been NPO since last RD visit. GREY TENDER recommendation PO dysphagia diet and thin liquids [...] 1+ R arm Estimated Nutrition Needs: EEN: 6025-3471 (25-30 kcal/kg admit wt) EPN: 80-110 (1.5-2 [...] to admission. Lisa Alexander, Dietetics Student Pager #[phone] * Nat Ag - 01/15/2022 1:11 PM EDT Acute Occupational Therapy Treatment Prior to Admission AM-PAC Score: PRIOR LEVEL AM-PAC Activity Raw Score: 24 PRIOR LEVEL AM-PAC Mobility Raw Score: 24 Current AM-PAC score(s): CURRENT AM-PAC Activity Raw Score: 7 Based on the above AM-PAC score(s), and OT clinical judgment, discharge destination recommendation is: Care Home Facility Barriers to discharge home: Patient needs [...] support to increase distal control for task, [id number] assist Grooming Intervention/Details: Pt with mild initiation [...] stability Mobility Assessment/Intervention: Supine to Sit Mobility [place] Level: Supine->Sit: maximum assist (25% patient effort) [...] management Transfer Assessment/Intervention: Sit to Stand Transfer [place] Level: Sit->Stand: maximum assist (25% patient effort) [...] stability/balance in standing Stand to Sit Transfer [place] Level: Stand->Sit: maximum assist (25% patient effort) Physical Assist: Stand->Sit: 2 person assist Assistive Device: Stand->Sit: gait belt, armed chair Skilled Rationale: Arm in arm, Positioning, Sequencing, Verbal cues, Cues for increased safety, Controlled descent for sitting Skilled Intervention/Details: Stand->Sit: x2; limited eccentric control present Bed-Chair Transfer [place] Level: Bed<->Chair: maximum assist (25% patient effort) [...] to guide hips to chair Toilet Transfer [place] Level: Toilet: maximum assist (25% patient effort) [...] guide hips to BSC Outcome Score(s): [facility]RENT [facility] Daily Activity Inpatient Short Form Putting on/Taking Off Lower Body Clothin - Total Assistance Bathin - Total Assistance Toiletin - A Lot of Assistance Putting on/Taking Off Upper Body Clothin - Total Assistance Groomin - Total Assistance Eatin - Total Assistance [facility] Activity Raw Score: 7 CURRENT [facility] Activity Functional Limitation/Modifier: 92.44% Currently Impaired in [...] Fields OT - 01/15/2022 1:20 PM EDT IMeg OT, provided direct guidance in the room during this patient care session. I attest that all documentation reflects accurate skilled clinical decisions and judgements. Meg Fields OTR/L License Number: [id number] Pager: [phone] * Zarina Mcdonald, PT - 01/15/2022 11:48 AM EDT Acute Physical Therapy Treatment Prior to Admission [facility] score(s): PRIOR LEVEL AM-PAC Mobility Raw Score: 24 PRIOR LEVEL AM-PAC Activity Raw Score: 24 Current AM-PAC score(s): CURRENT AM-PAC Mobility Raw Score: 6 Based on the above AM-PAC score(s) and PT clinical judgment, patient is a good candidate for discharge to Care Home Facility Mobility equipment available at home: none [...] A. Mobility Assessment/Intervention: Supine to Sit Mobility [place] Level: Supine->Sit: dependent (less than 25% patient [...] transfer. Transfer Assessment/Intervention: Sit to Stand Transfer [place] Level: Sit->Stand: maximum assist (25% patient effort) Physical Assist: Sit->Stand: 2 person assist Assistive Device: Sit->Stand: gait belt Skilled Rationale: Verbal cues, Tactile cues Skilled Intervention/Details: Sit->Stand: x1 trial from EOB, x1 trial from BSC. PT provided verbal/tactile cues for hand placement, foot placement, transfer technique and facilitated anterior weight shift to initiate transfer. Bed-Chair Transfer [place] Level: Bed<->Chair: maximum assist (25% patient effort) Physical Assist: Bed<->Chair: 2 person assist Assistive Device: Bed<->Chair: gait belt Skilled Rationale: Verbal cues, Tactile cues, Hand placement, Technique of activity Skilled Intervention/Details: Bed<->Chair: x1 from EOB to BSC to the right, x 1 from BSC to chair to the right. Verbal/tactile cues for instruction on transfer technique and hand placement. Outcome Score(s): [facility]RENT [facility] Basic Mobility Inpatient Short Form Turning over in bed: 1 - Total Assistance Sitting/standing from chair: 1 - Total Assistance Moving from lying on back to sittin - Total Assistance Moving to and from bed to chair: 1 - Total Assistance Walk in hospital room: 1 - Total Assistance Climbing 3-5 steps with a railin - Total Assistance [facility] Mobility Raw Score: 6 CURRENT [facility] Mobility Functional Limitation/Modifier: 100.00% Currently Impaired [...] Stability, Insurance Authorization Current Referrals and Status [facility] - RESERVED SENIOR NETWORK SYSTEMS ENGINEER met with patient, patient brother, and significant other at bedside to discuss SNF options. Patient agreed to discharge to [facility] once medically ready. SENIOR NETWORK SYSTEMS ENGINEER sent clinical updates to SNF via [facility] and reserved SNF. SNF cannot accept with NG tube and will need COVID test within 48hours of admission. Patient will also need precert. SENIOR NETWORK SYSTEMS ENGINEER to continue following. Melina HANKS, RUI Manager Fiber [facility] 8th floor [phone] * Betzy Dexter - 01/14/2022 12:52 PM EDT Images from the original note were not included. Acute Physical Therapy Treatment PRIOR LEVEL AM-PAC Mobility Raw Score: 24 CURRENT AM-PAC Mobility Raw Score: 7 Based on the above AM-PAC score(s) and PT clinical judgment, patient is a good candidate for discharge to Care Home Facility Mobility equipment available at home: none [...] room. Bed Mobility: Supine to Sit Mobility [place] Level: Supine->Sit: maximum assist (25% patient effort) [...] following cues. Transfers: Sit to Stand Transfer [place] Level: Sit->Stand: moderate assist (50% patient effort) [...] anterior weight shift. Stand to Sit Transfer [place] Level: Stand->Sit: moderate assist (50% patient effort) Physical Assist: Stand->Sit: 2 person assist Assistive Device: Stand->Sit: gait belt Skilled Rationale: Verbal cues, Hand placement, Positioning, Arm in arm, Controlled descent for sitting Skilled Intervention/Details: Stand->Sit: x1 to EOB, x1 to recliner with assistance needed to slow descent. Bed-Chair Transfer [place] Level: Bed<->Chair: moderate assist (50% patient effort) [...] work and progress towards goal(s). Treating Therapist: SAGAR Raymond Additional Details: Co-evaluation/co-treatment performed?: No simultaneous skilled [...] O2 as able ID: Ancef completed FEN/GI: GREY TENDER for further recs/evaluation PPX: SCDs, Lovenox Dispo: pending PTOT Please page [phone] ([phone]) with questions. Active Problems: SDH (subdural hematoma) [...] noted Mobility Assessment: Supine to Sit Mobility [place] Level: Supine->Sit: dependent (less than 25% patient effort) Physical Assist: Supine->Sit: 2 person assist Sit to Supine Mobility [place] Level: Sit->Supine: dependent (less than 25% patient effort) Physical Assist: Sit->Supine: 2 person assist Outcome Score(s): [facility] Daily Activity Inpatient Short Form Putting on/Taking Off Lower Body Clothin - Total Assistance Bathin - Total Assistance Toiletin - Total Assistance Putting on/Taking Off Upper Body Clothin - Total Assistance Groomin - Total Assistance Eatin - Total Assistance [facility] Activity Raw Score: 6 CURRENT AM-LOC[facility] Activity Functional Limitation/Modifier: 100.00% Currently Impaired in [...] is a good candidate for discharge to Care Home Facility Current therapy frequency recommendation in acute: [...] sides. Mobility Assessment: Supine to Sit Mobility [place] Level: Supine->Sit: dependent (less than 25% patient effort) Physical Assist: Supine->Sit: 2 person assist Sit to Supine Mobility [place] Level: Sit->Supine: dependent (less than 25% patient [...] Insurance Authorization Current Referrals and Status 1. [facility] Per CM conversation with patient's family, preference for SNF at discharge is [facility]. SENIOR NETWORK SYSTEMS ENGINEER uploaded current clinical to [facility] for SNFs to review. SENIOR NETWORK SYSTEMS ENGINEER will upload PT/OT Evals once they are available. LATONYA Velez, FAMILY THERAPIST Medical Social Work [phone] * Nelson Medina MD - 01/13/2022 12:11 [...] date. After telling her she was at [facility], she repeated that back to me [...] able Nelson Medina MD Preliminary General Surgery Valve And Regulator Repairer Pager [phone] * GIRISH Solis - 01/13/2022 8:20 AM EDT Acute Care GREY TENDER Speech/Language/Cognitive Evaluation Best mode of Communication: spoken language (regular speech) Communication Strategies: repeat directions, allow time, provide cues to improve understanding Discharge Recommendations: Based on the below outcome measures/assessment score(s) and GREY TENDER clinicaljudgment, discharge destination recommendation is: Deferred to PT/OT recomendations related to mobility Barriers to discharge home: Need for 1:1 assist to ensure safety with all PO intake Supporting factors for discharge setting: Impaired swallow function limiting nutritional status andsafety with oral intake Acute GREY TENDER Outcomes Tracking Communicate basic wants and needs?: [...] short-term memory. Pt would benefit from continued GREY TENDER services to address the above deficits. Patient Instruction/Education this session: Pt educated on results/recommendations. Unable to determine if pt demonstrated understanding. Plan for next session: Address goals per POC. Educate family if present. Subjective: Pt asleep upon GREY TENDER arrival. Pt easily aroused per verbal cues. [...] 1 Asthenia (A): 1 Strain (S): 1 GREY TENDER Outcomes: GREY TENDER Outcomes / Standardized Measures Score The Orientation [...] unable to respond. Total Score: 12 Acute GREY TENDER Goals Plan of Care by Marni Doan GREY TENDER at 01/13/2022 8:20 AM Version 1 of 1 Problem: GREY TENDER - Dysphagia Goal: PO Trial 3 Description: Patient will swallow trials of advancing solids demonstrating appropriate alertness, timely/effective mastication, bolus formation and oral bolus transit without overt clinical signs/symptoms of aspiration, across 1-3 sessions to determine readiness for diet advancement. Outcome: Ongoing Problem: GREY TENDER - Language Goal: Command Following Description: Patient [...] questions/questions related to care. Outcome: Ongoing Problem: GREY TENDER - Cognition Goal: Orientation Goal Description: Patient [...] on the below outcome measures/assessment score(s), and GREY TENDER clinical judgment, discharge destination recommendation is: Deferred to PT/OT recomendations related to mobility Barriers to discharge home: Need for 1:1 assist to ensure safety with all PO intake Supporting factors for discharge setting: Impaired swallow function limiting nutritional status andsafety with oral intake Acute GREY TENDER Outcomes Tracking Communicate basic wants and needs?: [...] intake and will need nutrition via DHT. GREY TENDER will continue to follow along for diet management. Subjective: Pt seen for swallowing following speech/cognition evaluation. Pt requiring cues to follow directions and sustain attention to tasks. Pt reports minimal discomfort when swallowing, but wasunable to provide further explanation. Pain: General Pain Documentation (Adult, OB, Peds) Presence of Pain: denies pain/discomfort Respiratory Status: Nasal Cannula: 2L Acute GREY TENDER Goals Plan of Care by GIRISH Solis at 01/13/2022 8:20 AM Version 1 of 1 Problem: GREY TENDER - Dysphagia Goal: PO Trial 3 Description: [...] on the below outcome measures/assessment score(s), and GREY TENDER clinical judgment, discharge destination recommendation is: Deferred to PT/OT. At discharge, recommend further GREY TENDER services targeting: dysphagia Supporting factors for discharge setting: Impaired swallow function limiting nutritional status andsafety with oral intake Acute GREY TENDER Outcomes Tracking Communicate basic wants and needs?: [...] Cannula: respirations easy/unlabored. O2 sats 91%. Acute GREY TENDER Goals Plan of Care by Ying Linda, GREY TENDER at 01/12/2022 3:00 PM Version 1 of 1 Problem: GREY TENDER - Dysphagia Goal: PO Trial 2 Description: [...] nods her head that she is tired. GREY TENDER provided brief education regarding rationale for swallow treatment/re-assessment with no verbal response from patient. GREY TENDER utilized moistened oral toothetes on pt's lips with no response noted and presented both ge spoon between lips and a spoon with a small ice chip between lips with no labial pursuit and nonotable response or even trying to pull head away. GREY TENDER communicated same with RN. Patient Instruction/Education this session: Education provided regarding rationale for treatment session. Pt will benefit from ongoing education. Plan for next session: Ongoing re-assessment to determine readiness for instrumental vs readiness for diet initiation. GREY TENDER Outcomes: FOIS 1 I was assisted by Katheryn Colon, GREY TENDER Student for today's session. and I used [...] as able/appropriate. No charge Ying Linda MS [facility]-GREY TENDER #[id number] Pager# [phone] Can also be reached via [employer] secure chat Mon-Wed between [phone] * Radha Luke RN - 01/12/2022 12:57 PM EDT Discharge Planning Patient Assessment Admission Assessment Patient Assessment Completed: Yes Anticipated discharge disposition: Care Home Facility Reason for Admission: SDH s/p R hemicraniectomy on 01/08/2022 Is the patient able to participate in the assessment?: No Information source: Spouse, Other (brother) Information Source Name/Contact: dex patricia Significant Other [phone] Demographics Verified and Updated: Yes Has the patient been admitted to any hospital in the last 30 days?: No Advanced Care Planning Has the patient completed Advance Directives?: Not Completed Referral to Social Work for Advance Care Planning? : Patient Declines Legal Next of Kin Does the patient have a Guardian?: No Spouse: Yes Name and Contact information: dex patricia Significant Other [phone] Referral to Social Work to Identify Legal [...] Is the patient from a facility or mcc?: No Patient lives with: Spouse or Partner [...] on Anticoagulation? : No No Pharmacies Listed Digital Color Press Operator Does the patient or financial foundations representative express financial concerns? : No Employed?: Retired Coping/Stress Concerns about patient s coping and stress?: No Concerns about patient s caregiver s coping and stress?: No Values and Beliefs Cultural or advent practices that may impact discharge planning and/or medical care?: No Initial Discharge Planning Anticipated discharge disposition: Care Home Facility Transportation Available for Discharge: Ambulance Anticipated DME: walker Anticipated Services at Discharge: Care Home, Physical Therapy, Occupational Therapy Patient Assessment Completed: [...] assessment. Introduced myself and explained role of caser up. Spouse and brother at bedside, both are agreeable that patient will likely need SNF placement afterdischarge and request discharge to [facility]. SW updated. CM and SW will continue to follow to assess ongoing needs and assist with discharge planning. Case Management Plan visual display manager will make all appropriate referrals and follow up appointments and order all necessaryequipment and supplies. Paul Tran RN, BSN, ACM Clinical Cushion Builder * Pete Sorto, PT - 01/12/2022 11:39 [...] over the weekend via the chart. Pete Sorto, PT Time In: 1139 Time Out: 1139 [...] O2 as able ID: Ancef completed FEN/GI: GREY TENDER for further recs/evaluation PPX: SCDs, Lovenox Dispo: pending PTOT Please page [phone] ([phone]) with questions. Active Problems: SDH (subdural hematoma) [...] AM EDT NEUROSURGERY PROGRESS NOTE: 01/11/22 S: TORIE O: PE: awake Ox2 PERRL EOMI FS [...] % (01/11 1000) O2 Device: nasal cannula (01/11 0800) Flow (L/min): 2 (01/11 0800) I/O last 3 completed shifts: In: 968.5 [...] WITHOUT meds - will reach out to GREY TENDER for further recs/evaluation PPX: SCDs, Lovenox Dispo: pending PTOT Please page [phone] ([phone]) with questions. Active Problems: SDH (subdural hematoma) Anemia (Low HGB) Present on Admission: SDH (subdural hematoma) * Pepper Mcgowan RD - 01/11/2022 8:30 AM EDT [...] free water/d. 2. Diet: NPO. Advancement per GREY TENDER. 3. RD to follow. Pt at nutrition risk secondary to acute medical condition, NPO status and TF S/O: Luiza May is a 66 y.o. female who presented with acute right SHD and she is now POD#3 s/p decompressive craniectomy. She is on nasal cannula this morning. Past History As above + CVA, COPD on home O2 Nutrition Hx: Swallow eval completed 01/10 and GREY TENDER recommended NPO status. DHT in place for [...] 55 kg, admit wt Estimated Kcal Needs: 6617-8814 (25-30 kcal/kg admit wt) Estimated Pro Needs: 80-110 (1.5-2 g/kg admit wt) Estimated fluid needs: 6018-1830 (30-35 ml/kg admit wt) Malnutrition Statement Indications of Malnutrition: Unable to assess- unable to obtain nutrition hx based on the AND/ASPEN Malnutrition Criteria [address],LD, CNSC, RN Pager: [phone] * GIRISH Childers - 01/10/2022 11:50 AM [...] on the below outcome measures/assessment score(s) and GREY TENDER clinicaljudgment, discharge destination recommendation is: Deferred to PT/OT recomendations related to mobility Barriers to discharge home: Need for 1:1 assist to ensure safety with all PO intake Supporting factors for discharge setting: Impaired swallow function limiting nutritional status andsafety with oral intake Acute GREY TENDER Outcomes Tracking Communicate basic wants and needs?: [...] NSG for a right-sided decompressive craniectomy. Prior GREY TENDER history: None on file. Current Method of Nutrition: Route of Nutrition: NPO Respiratory Status: O2 Device: nasal cannula O2 Sat (%): 99 % Resp Rate: 22 Subjective: Pt continuously stating Oh god throughout evaluation however unable to state if in pain. Required encouragement for po trials. Family members at bedside. RN entered room at end of evaluation and GREY TENDER informed RN of recommendations from today's evaluation. [...] aspiration with ice chips or puree solids. [place] Swallow Screen: Farhana Swallow Screening Screening Exclusion Criteria: NPO order for other medical/surgical reasons [place] Swallow Screening Result: postpone until no longer [...] to reduce risk o f disuse atrophy. GREY TENDER to follow for ongoing dysphagia management and to determine readiness for diet initiation vs need for instrumental swallow study. Plan for Next Session: determine readiness for diet initiation vs need for instrumental swallow study Patient Instruction/Education Provided this Session: educated family regarding role of GREY TENDER and purpose of NPO recommendations Acute GREY TENDER Goals Plan of Care by GIRISH Childers at 01/10/2022 11:50 AM Version 1 of 1 Problem: GREY TENDER - Dysphagia Goal: PO Trial 2 Description: [...] Speech Therapy Discharge Summary * Dionicio Pacheco APRN-TELETYPESETTER - 01/10/2022 10:47 AM EDT NEUROCRITICAL CARE [...] right-sided decompressive craniectomy, ballard-culture 01/09: Extubated 01/10 PAPI [place] tx PHYSICAL [...] >92%; wean FiO2 as tolerated - - UAG8DDS, encourage pulmonary toileting - Continue home breathing [...] replaced per NCCU protocol Recent Labs 01/09/22 01501/09/22 2320 SODIUM 141 143 POTASSIUM 3.7 4.2 [...] - Bowel regimen: - Last Bowel Movement: (DIRECTOR OF PHYSIOTHERAPY SERVICES) - Senna, miralax - 01/10 GREY TENDER eval recommend NPO DHT placed TF initiated [...] [ ] post-pyloric Discussed with NCCU Attending, Dr. Rosie Pacheco APRN-TELETYPESETTER Service pager: [phone] Service [place] #: [phone] (Beds [phone] and beds), [place] #: [phone] (Beds [phone] and [facility]) 01/10/22 10:47 AM * Veronica Velez MD - 01/10/2022 8:54 AM EDT I have seen and examined the patient with the resident/PHYSICIAN CREDENTIALING SPECIALIST today. I have personally reviewed all theimaging [...] right-sided subdural hematoma with midline shift 1. MEAT SPECIALIST: Status post right-sided decompression craniectomy for subdural [...] DVT porph Tr out Veronica Velez MD Chronometer Assembler Department of Neurology * Crys Brar MD [...] Lovenox Dispo: pending PTOT Please page [phone] ([phone]) with questions. Active Problems: SDH (subdural hematoma) [...] Negative 01/09/2022 BENZOUR Presumptive Positive (A) 01/09/2022 [id number] Negative 01/09/2022 BUPREN Negative 01/09/2022 COCUR Negative 01/09/2022 METHADUR Negative 01/09/2022 CANNABINOIDS Negative 01/09/2022 FENTU Presumptive Positive (A) 01/09/2022 OPIATE Presumptive Positive (A) 01/09/2022 OXYCODONE Negative 01/09/2022 Lab Results Component Value Date PH 7.48 (H) 01/09/2022 WBCURINE 6-9 (A) 01/09/2022 No results found for: CTUR, GCUR, UAREFLXCULTNo results found for: GRQVWYU1XM, NFTVPIQ3BP [x] I have read and reviewed the [...] [x] I have read and reviewed the computer systems consultant recommendations TRAUMA CATALOGUE OF INJURIES & [...] No additional findings noted. Dionicio Mckinney MD authorizer * Radha Luke RN - 01/09/2022 1:09 [...] EDT Speech Language Pathology Attempt Note 01/09/2022 GREY TENDER Therapy Completed: Attempted Attempted Reason: Patient is [...] for screening? No - intubated BURTON Hurley, [facility] Manager Fiber, Emergency Dept. [phone] Available via Secure Chat [facility] Discharge instructions* Discharge Instructions* Rakesh [...] headache or headache with a stiff neck Sutures/[place]: If Sutures/arturo are used to close the outer layer of skin they should remain dry and in place for about 10 - 14 days after surgery unless otherwise directed. Call the office at [phone] to schedule a time to come in, [...] questions before your appointment. [facility] Reason for referral (narrative)* (Routine) Specialty Diagnoses / Procedures Referred By Contac t Referred To Contact Rakesh Ta MD [address] [place] [phone] Referral ID Status Reason Start Date Expiration Date Visits Re quested Visits Authorized * (Routine) Specialty Diagnoses / Procedures Referred By Contac t Referred To Contact Lowell Bryant MD [address] [place] [phone] Referral ID Status Reason Start Date Expiration Date Visits Re quested Visits Authorized * Speech Therapy (Routine) - New Request Specialty Diagnoses / Procedures Referred By Contac t Referred To Contact Severo Jurado MD [address] [place] [address] Referral ID Status Reason Start Date Expiration Date V isits Requested Visits Authorized [id number] New Request 01/19/2022 02/13/2023 1 1 * (Routine) Specialty Diagnoses / Procedures Referred By Contac t Referred To Contact Joy Rawls Jr., MD [address] [place] [phone] Referral ID Status Reason Start Date Expiration Date Visits Re quested Visits Authorized * (Routine) Specialty Diagnoses / Procedures Referred By Contac t Referred To Contact [facility] [address] [place] [phone] Referral ID Status Reason Start Date Expiration Date Visits Re quested Visits Authorized * (Routine) Specialty Diagnoses / Procedures Referred By Contac t Referred To Contact Dionicio Pacheco APRN-CNP [address] [place] [address] Referral ID Status Reason Start Date Expiration Date Visits Re quested Visits Authorized * (Routine) Specialty Diagnoses / Procedures Referred By Contac t Referred To Contact Deborah Amador APRN-CNP [address] [phone] Referral ID Status Reason Start Date Expiration Date Visits Re quested Visits Authorized * (Routine) Specialty Diagnoses / Procedures Referred By Contac t Referred To Contact Deborah Amador APRN-CNP [address] [phone] Referral ID Status Reason Start Date Expiration Date Visits Re quested Visits Authorized * (Routine) Specialty Diagnoses / Procedures Referred By Contac t Referred To Contact Deborah Amador APRN-CNP [address] [address] Referral ID Status Reason Start Date Expiration Date Visits Re quested Visits Authorized * (Routine) Specialty Diagnoses / Procedures Referred By Contac t Referred To Contact Deborah Amador APRN-CNP [address] [phone] Referral ID Status Reason Start Date Expiration Date Visits Re quested Visits Authorized * (Routine) - Pending Review Specialty Diagnoses / Procedures Referred By Contac t Referred To Contact Procedures DVT/VTE RISK ASSESSMENT Deborah Amador APRN-CNP [address] [phone] Referral ID Status Reason Start Date Expiration Date V isits Requested Visits Authorized [id number] Pending Review 01/09/2022 02/03/2023 1 1 * (Routine) - Pending Review Specialty Diagnoses / Procedures Referred By Contac t Referred To Contact Procedures NO PHARMACOLOGICAL DVT PROPHYLAXIS Severo Jurado MD [address] [place] [address] Referral ID Status Reason Start Date Expiration Date V isits Requested Visits Authorized [id number] Pending Review 01/09/2022 02/03/2023 1 1 * (Routine) - Pending Review Specialty Diagnoses / Procedures Referred By Contac t Referred To Contact Procedures DVT/VTE RISK ASSESSMENT Severo Jurado MD [address] [place] [address] Referral ID Status Reason Start Date Expiration Date V isits Requested Visits Authorized [id number] Pending Review 01/09/2022 02/03/2023 1 1 * Radiology (Emergency) - Pending Review Specialty Diagnoses / Procedures Referred By Contac t Referred To Contact Procedures ECG Jenni Zavala MD [address] [place] [phone] Referral ID Status Reason Start Date Expiration Date V isits Requested Visits Authorized [id number] Pending Review 01/08/2022 02/02/2023 1 1 * (Routine) Specialty Diagnoses / Procedures Referred By Contjuan manuel t Referred To Contact Kailee Lyon MD [address] [place] [address] Referral ID Status Reason Start Date Expiration Date Visits Re quested Visits Authorized [facility]07-19-2022 Procedure note* GIRISH Alcala - 01/20/2022 2:20 [...] on the below outcome measures/assessment score(s), and GREY TENDER clinical judgment, discharge destination recommendation is: Deferred to PT and/or OT discharge recommendations related to mobility and/or ADLs. At discharge, ongoing speech therapy services are recommended to target: cognitive-linguistic deficits. Acute GREY TENDER Outcomes Tracking Communicate basic wants and needs?: [...] Severo Jurado MD; Location: [facility] MAIN OR Patient History Comments: Per chart: [...] with feeding as needed. No additional skilled GREY TENDER services indicated for dysphagia. Plan for next [...] Clinical Impression Frequency: No therapy recommended Acute GREY TENDER Goals Notes from 01/20/2022 3:02 AM through 01/20/2022 3:02 PM Goal 1: Patient will demonstrate understanding regarding Speech-Language Pathology role and plan ofcare and evaluation results/recommendations to improve awareness of condition/GREY TENDER role by the time of discharge. Results and recommendations described above reviewed with pt. Pt verbalized understanding. Goal met. Time In: 1420 Time Out: 1440 Total Visit Time: 20 minutes Total Treatment Time (skilled, billable minutes): 15 minutes I used gloves, facemask and protective eye shield in today's patient interaction. I was assisted by no one during this visit. Therapist: PAU Alcala, [facility]-GREY TENDER, CBIS License # [id number] Pager #: [phone] Upon discontinuation of Acute Care Speech Therapy Services or patient discharge from the hospital this note represents the current Speech Therapy Discharge Summary documented in this [facility] Consult note* Juana Brown, DO - 01/15/2022 [...] inhaler 2 puff, 2 puff, 4x daily ngwbzmicmf-rgvkxycesarbcu-Uukpvmrxcy (BREZTRI) 160-9-4.8 MCG/ACT inhaler 1 puff, 1 [...] COMPONENT TYPE Red Cells, Leukoreduced UNIT NUMBER [id number] UNIT STATUS issued PRODUCT CODE [id number] Product ABO/RH(D) NUMBER 6200 EXPIRATION DATE [id number] ABO/RH(D) TYPE APOS Product ABO/RH(D) APOS TYPE [...] (148 lb 11.2 oz), SpO2 96 %. SANDRINE May is a 66 y.o. female with [...] questions M-F 8a-5p at [phone]. The on-call vice president pharmacy can be reached outside these hours at the same pager number [phone]. Case staffed with attending psychiatrist, Dr. Castro. [...] alcohol abuse, and anxiety who presented to [facility] ED after a fall at home. She was found to have a subdural hematoma at outside hospital, intubated, and transferred to [facility] for further management. Psychiatry was consulted after [...] lower at this point. Rayray Castro MD Process Machine Operator Consultation-Liaison Psychiatry * Gerard Segovia [...] Gerard Segovia MD Orthopaedic Surgery, PGY-2 Pager #[phone] Associated attestation - Pepper Childs MD - [...] a 66 y.o. female transported to [facility] s/p Found down. Patient was found down at home. Unknown how long patient was down. She takes ASA, noother blood thinners reported. She first presented to an OSH. CT Imaging was concerning for gmtwh-ka-lfdg midline shift of 12 mm. Patient was [...] LACT 1.3 01/08/2022 No results found for: [id number] Lab Results Component Value Date ETOHSERUM <10 01/08/2022 AMPMETUR Negative 01/08/2022 BENZOUR Negative 01/08/2022 [id number] Negative 01/08/2022 BUPREN Negative 01/08/2022 COCUR Negative [...] the treatment team or page the Consult Resident#[id number] (Web Exchange, search Acute Care Surgery > Consults - Emergency General Surgery/Trauma Consults) Elin Boswell MD Vascular Surgery, PGY-2 Associated attestation - Josue Simental MD - 01/09/2022 7:50 AM EDT Images from the original note were not included. SURGERY ATTENDING ATTESTATION I, Josue Simental MD, was present and independently assessed and performed a physical examination of Ms. Luiza May on the date of service [...] blood thinners reported. She first presented to [facility]. CT Imaging was concerning for oaohn-mz-kcem midline shift of 12 mm. Patient was [...] questions or concerns. Josue Simental MD, FACS authorizer Division of Trauma, Critical Care, and Burn [facility] * Lindsay Lemus MD, PhD - 01/08/2022 2:50 PM EDTAssociated Order(s): IP CONSULT TO SURGERY - NEURO Neurosurgery Consult Note Reason for Consult: fall, subdural, with midline shift from R to L 12 mm Contact Number: [phone] HPI Ms. Luiza May is a 66 y.o. female w/ COPD, CHF, HTN, CVA in 2017, DVT in 2017 and TIA in 2019presenting with confusion. Patient was found down at home with uknown LKW and taken to OSH, intubated at approximately [...] at this time. [facility] History and physical note* EMELY Stubbs - 01/08/2022 9:57 PM EDT NEUROCRITICAL CARE [...] tolerated - pH/PCO2/PO2/HCO3: 7.48/38/139/28 (01/09 227) - OUI0EBZ, encourage pulmonary toileting - 01/09 CXR: pending [...] Therapy: Indicated if LDL >70 Recent Labs 01/08/22 1912 CHOLESTEROL 91 TRIG 114 HDL 37* LDL 31 Renal/: No Current Issues - Fluid Balance: - Goal: euvolemia - Net PmL/24H, PmL/admission - UOP PmL/24H - Continue soliman, (indication: maame-op) - Maintenance: 0.9NS w/ 20 KCl @ 75mL/hr - Daily Chem 10; electrolytes replaced per NCCU protocol Recent Labs 01/08/22165501/08/22191101/09/22 015 SODIUM 139 141 141 POTASSIUM 4.3 3.8 [...] - Bowel regimen: - Last Bowel Movement: (DIRECTOR OF PHYSIOTHERAPY SERVICES) - Senna, miralax Endo: Risk for Stress-Induced [...] Blood Loss Anemia Thrombocytopenia Recent Labs 01/08/22191101/09/22 015 WBC 9.08 12.22* RBC 2.41* 3.28* HGB [...] ventilation) - Lines/Tubes: Laure: inserted 01/08, (indication:periop) CVC: inserted 01/08, (indication:IV [...] include procedures. Discussed with NCCU Attending, Dr. rosie Amador, LASER PRINT OPERATOR-TELETYPESETTER Service pager: [phone] Service [place] #: [phone] (Beds 7865-4083 and beds), [place] #: [phone] (Beds 1042- 1053 and [facility] beds) 01/09/22 4:43 AM documented in [facility] Emergency department Note* Nadia Avendano RN - 01/08/2022 3:56 PM EDT Patient taken to OR with this RN * Nadia Avendano RN - 01/08/2022 3:48 PM EDT Neurosurg at bedside, patient to go to OR at this time. RT called to bedside. * Kailee Lyon MD - 01/08/2022 2:43 PM EDT Medical necessity for IV contrast, trauma. Kailee Lyon MD Resident 01/08/22 4803 * ROSCOE Quinn - 01/08/2022 2:41 PM EDT SW responded to Level A Hemorrhagic Stroke Alert brought in by [employer] [facility] 3 as a transfer from [facility]. Patient was intubated at the OSH, and multiple family members were present and aware of her transfer. Daughter (Ameena Zhang, ) was assisting with care planning and will be coming to this hospital. SW will be available for support as needed while patient is in the ED. BURTON Hurley, [facility] Manager Fiber, Emergency Dept. [phone] Available via Secure Chat * Nadia Avendano [...] 01/08/2022 2:26 PM EDT Pt transferred from [facility] for hemorrhagic stroke. Pt found [...] RN - 01/08/2022 2:26 PM EDT Bed: E033 Expected date: 01/08/22 Expected time: Means of [...] hospital head imaging revealed subdural hematoma with xucsd-sa-hcdm midline shift of 12 mm. Patient was [...] performed during the hospital encounter of 01/08/22 [facility] 7 - ED Result Value Ref [...] 1.05 (L) 1.16 - 3.51 K/uL Abs [employer] 0.48 0.22 - 0.87 K/uL Abs [...] patient for craniotomy, admit to neurosurg. A oxkivg-rj-dahn dictation tool was used in the production [...] to be having a hemorrhagic stroke. The IHIS order set ED: Confirmed Stroke/ICH - Secondary was placed by Dr. Kailee Lyon for ongoing care. Pertinent medications received prior to arrival: - Keppra 1500 mg IV x1 (per [facility]) - Fentanyl 100 mcg IV (total) - Propofol infusion (paused on arrival) A targeted home medications list was obtained from [facility] and medical chart and [facility] . The patients was determined to [...] further questions. Name: Lakisha Gray RPH Phone: [phone] Date/Time: 01/08/2022 2:13 PM * Pablo Barraza [...] 01/21/22 1050 Pablo Barraza MD 01/21/22 1051 Pbalo Barraza MD 01/21/22 1051 documented in this encounterTr[facility] Miscellaneous Notes* Telephone Encounter - Priscila Magaña - 12/29/2021 2:09 PM EDT Luiza May is calling Maryam Franco MD today she is calling with: congestion; coughing, wheezing; started on 12/28; stated previously she was prescribed a Z-Mina. Patient has been identified by name and birthdate. Duration of symptoms: N/A Person calling: self Call patient at: at home [phone] (home) Was an appointment scheduled: No Closing statement: Symptom Call: Thank you for calling [facility], your call is very important. A nurse will call in approximately 2-4 hours during business hours. If this is an emergency, please contact 911. Priscila Pugh Pss documented in this encounterEast [facility]06-[facility]22 History of Present illness Narrative* Maryam [...] Cancer Mother R/T LUNG CANCER Heart Father ME Cancer Sister LUNG Social History Tobacco Use [...] <130/80 Maryam Franco MD documented in this encounterEast [facility]06-[facility] History of Present illness Narrative* Pablo [...] care. Pablo Bedoya APRN.CNP documented in this encounterEast [facility]06-04-2022 Miscellaneous Notes* Telephone Encounter - Gisell [...] like it. Reports she uses [facility] in [place]. Please call and advise. documented in this encounterEast [facility]05-23-2022 Miscellaneous Notes* Telephone Encounter - Irena [...] and advise. Joanie Gillette documented in this encounterEast [facility] Hospital05-19-2022 Miscellaneous Notes* Telephone Encounter - Katty [...] that was scheduled to be done at [facility] had been denied andcancelled due to patient had ECHO done while she was in [facility] on September 23, 2021. Carmen is faxing a copy of that ECHO to the office for PCP. documented in this encounterEast [facility] Hospital05-05-2022 Miscellaneous Notes* Telephone Encounter - Nancy [...] Regards, Maryam Franco MD documented in this encounterEast [facility]05-02-[facility]22 History of Present illness Narrative* Maryam [...] [facility]. Says she [facility] not [facility] [...] Cancer Mother R/T LUNG CANCER Heart Father ME Cancer Sister LUNG Social History Tobacco Use [...] medication. Maryam Franco MD documented in this encounterEast [facility]04-22-2022 Miscellaneous Notes* Telephone Encounter - Nava Shagufta [...] advise. Katheryn Lynn Pss documented in this encounterEast [facility] Hospital04-14-2022 Miscellaneous Notes* Telephone Encounter - Joan Johnson APRN.TELETYPESETTER - 10/16/2021 9:00 AM EDT Noted and [...] advise, Sushila Espinoza RN documented in this encounterEast [facility] Hospital04-12-2022 Miscellaneous Notes* Telephone Encounter - Gisell Schumacher RN - 10/14/2021 9:38 AM EDT Patient calling in to request pre-certification for ECHO to be done at [facility]. Pre- certification information has been completed as well as has been emailed. Gisell Schumacher RN * Telephone Encounter - Joan Johnson APRN.CNP - 10/13/2021 3:32 PM EDT Noted. Joan Johnson APRN.CNP * Telephone Encounter - Sushila Espinoza RN - 10/13/2021 3:20 PM EDT FYI--Patient calls to report that she is having her ECHO completed at [facility] and needs prior-authorization. Referral placed for ECHO to be done at [facility]. Patient aware authorization is pending. Sushila Espinoza RN documented in this encounterEast [facility] Hospital04-08-2022 Miscellaneous Notes* Telephone Encounter - Joan Johnson APRN.CNP - 10/10/2021 3:20 PM EDT PDMP website checked and validated. All prescriptions have been APPROPRIATELY filled. No suspiciousactivity was identified. 10/10/2021 by Joan Johnson APRN.CNP * Telephone Encounter - Irena Lomeli LPN [...] patient. Priscila Pugh Pss documented in this encounterEast [facility] Hospital04-06-2022 History of Present illness Narrative* Maryam [...] for a couple days. Luiza was in [place] because her son invited her there. That was in the first week of September. Therewas a samaria of wind when she was outside and she fell and hit her head. She says that since that time multiple things have ensued. After hitting her head she was sent by 911 to [facility] had aCT of the head and neck and nothing abnormal was found. Following that she had some nausea and developed feeling of being ill which was a couple weeks later checked out at [facility].They found her to be extremely constipated. All her labs were normal including the blood counts andliver kidneys they sent her home because she wanted to go home and they were not sure whether to admit her. She still did not feel better and so the next day she went back to the [facility] and interestingly her creatinine which was 0.8 the past day now became 4.5. This was an extremely significant change so she was admitted for GUME given IV fluids and she started having pedal edema. X-rays at that time revealed cardiomegaly but she had not had any signs of failure. After coupledays in the [facility] for treatment for constipation with pedal edema she started having diarrhea and notes today that her bowel movements have been sort of regular. From the [facility] she was sent to the [...] Cancer Mother R/T LUNG CANCER Heart Father ME Cancer Sister LUNG Social History Tobacco Use [...] SYRINGE Maryam Franco MD documented in this encounterEast [facility] Hospital03-28-2022 Miscellaneous Notes* Telephone Encounter - Rachel Rudd RN - 09/29/2021 4:25 PM EDT Ayanna with [facility] called and is notified of providers message. She voices understanding. Rachel Rudd RN * Telephone Encounter - Joan Johnson APRN.CNP - 09/29/2021 4:14 PM EDT Provider agrees with orders and will follow. Thank you Joan Johnson APRN.CNP * Telephone Encounter - Ginny Moreland RN - 09/29/2021 11:25 AM EDT Ayanna from [facility] calls and states that patient is planning to get discharged from [facility] today with the diagnosis of Acute Kidney Injury, Diarrhea, and Dehydration. Ayanna asking if provider willing to follow patient with orders for Care Home, Physical Therapy, Occupational Therapy, and Home Health Aide. They plan on starting up care on 10/01/2021 if provider agreeable to Follow. If agreeable please give Ayanna a call back [phone]. Thank you, Ginny Moreland RN documented in this encounterEast [facility] Hospital03-06-2022 Hospital Discharge instructions Patient Education 09/07/2021 [...] the ears or bruising around the eyes [id number] [employer]. [address] [place] [address]. All rights reserved. This information is not intended as a substitute for professional medical care. Always follow yourhealthcare professional's instructions. 09/07/2021 19:00:13 LACERATION, Scalp Scalp Laceration (Sutures or [place]) A laceration is a cut through the [...] re-open Bleeding not controlled by direct pressure [phone] [employer]. [address] [place] [address], [place] [address]. All rights reserved. This information is not [...] or numbness in one or both arms 9261-4426 [employer]. [address] [place] [address], [place] [address]. All rights reserved. This information is not [...] in vomit, stools (black or red color) [phone] [employer] [address] [place] [address]. All rights reserved. This information is not intended as a substitute for professional medical care. Always follow yourhealthcare professional's instructions. Follow Up Care 09/07/2021 15:50:35 With:JOY STAHL Address: [address] [place] [address]- Business (1) When:2-4 days Comments:Schedule appointment as soon as possibleStaples out in 7-10 daysReturn to ED if symptoms worsen [facility] 10-30-2006 History of Past illness Narrative* Problem Noted Date Resolved Date Chronic pulmonary heart disease 05/03/2006 10/01/2022 Cough 04/01/2006 05/03/2006 Obstructive chronic bronchitis with exacerbation 05/03/2006 Overview: COPD Viral pneumonia, unspecified Overview: Pneumonia documented as of this encounter (statuses as of 10/01/2022) [facility] of Past illness Narrative* Problem Noted Date Resolved Date Chronic pulmonary heart disease 05/03/2006 10/01/2022 Cough 04/01/2006 05/03/2006 Obstructive chronic bronchitis with exacerbation 05/03/2006 Overview: COPD Viral pneumonia, unspecified Overview: Pneumonia documented as of this encounter (statuses as of 10/15/2022) [facility] of [facility] illness Narrative* Problem Noted Date Resolved Date Chronic pulmonary heart disease 05/03/2006 10/01/2022 Cough 04/01/2006 05/03/2006 Obstructive chronic bronchitis with exacerbation 05/03/2006 Overview: COPD Viral pneumonia, unspecified Overview: Pneumonia documented as of this encounter (statuses as of 10/16/2022) [facility] of [facility] illness Narrative* Problem Noted Date Resolved Date Chronic pulmonary heart disease 05/03/2006 10/01/2022 Cough 04/01/2006 05/03/2006 Obstructive chronic bronchitis with exacerbation 05/03/2006 Overview: COPD Viral pneumonia, unspecified Overview: Pneumonia documented as of this encounter (statuses as of 10/16/2022) [facility] of [facility] illness Narrative* Problem Noted Date Resolved Date Chronic pulmonary heart disease 05/03/2006 10/01/2022 Cough 04/01/2006 05/03/2006 Obstructive chronic bronchitis with exacerbation 05/03/2006 Overview: COPD Viral pneumonia, unspecified Overview: Pneumonia documented as of this encounter (statuses as of 2022) [facility] of [facility] illness Narrative* Problem Noted Date Resolved Date Chronic pulmonary heart disease 05/03/2006 10/01/2022 Cough 04/01/2006 05/03/2006 Obstructive chronic bronchitis with exacerbation 05/03/2006 Overview: COPD Viral pneumonia, unspecified Overview: Pneumonia documented as of this encounter (statuses as of 10/22/2022) [facility] Narrative* Problem Noted Date Resolved Date Chronic pulmonary heart disease 05/03/2006 10/01/2022 Cough 04/01/2006 05/03/2006 Obstructive chronic bronchitis with exacerbation 05/03/2006 Overview: COPD Viral pneumonia, unspecified Overview: Pneumonia documented as of this encounter (statuses as of 10/23/2022) [facility] of [facility] Narrative* Problem Noted Date Resolved Date Chronic pulmonary heart disease 05/03/2006 10/01/2022 Cough 04/01/2006 05/03/2006 Obstructive chronic bronchitis with exacerbation 05/03/2006 Overview: COPD Viral pneumonia, unspecified Overview: Pneumonia documented as of this encounter (statuses as of 10/23/2022) [facility] Narrative* Problem Noted Date Resolved Date Chronic pulmonary heart disease 05/03/2006 10/01/2022 Cough 04/01/2006 05/03/2006 Obstructive chronic bronchitis with exacerbation 05/03/2006 Overview: COPD Viral pneumonia, unspecified Overview: Pneumonia documented as of this encounter (statuses as of 10/29/2022) [facility] Narrative* Problem Noted Date Resolved Date Chronic pulmonary heart disease 05/03/2006 10/01/2022 Cough 04/01/2006 05/03/2006 Obstructive chronic bronchitis with exacerbation 05/03/2006 Overview: COPD Viral pneumonia, unspecified Overview: Pneumonia documented as of this encounter (statuses as of 11/04/2022) [facility] Narrative* Problem Noted Date Resolved Date Chronic pulmonary heart disease 05/03/2006 10/01/2022 Cough 04/01/2006 05/03/2006 Obstructive chronic bronchitis with exacerbation 05/03/2006 Overview: COPD Viral pneumonia, unspecified Overview: Pneumonia documented as of this encounter (statuses as of 11/11/2022) [facility] Narrative* Problem Noted Date Resolved Date Chronic pulmonary heart disease 05/03/2006 10/01/2022 Cough 04/01/2006 05/03/2006 Obstructive chronic bronchitis with exacerbation 05/03/2006 Overview: COPD Viral pneumonia, unspecified Overview: Pneumonia documented as of this encounter (statuses as of 11/11/2022) [facility] Narrative* Problem Noted Date Resolved Date Chronic pulmonary heart disease 05/03/2006 10/01/2022 Cough 04/01/2006 05/03/2006 Obstructive chronic bronchitis with exacerbation 05/03/2006 Overview: COPD Viral pneumonia, unspecified Overview: Pneumonia documented as of this encounter (statuses as of 11/13/2022) [facility] Narrative* Problem Noted Date Resolved Date Chronic pulmonary heart disease 05/03/2006 10/01/2022 Cough 04/01/2006 05/03/2006 Obstructive chronic bronchitis with exacerbation 05/03/2006 Overview: COPD Viral pneumonia, unspecified Overview: Pneumonia documented as of this encounter (statuses as of 11/18/2022) [facility] Narrative* Problem Noted Date Resolved Date Chronic pulmonary heart disease 05/03/2006 10/01/2022 Cough 04/01/2006 05/03/2006 Obstructive chronic bronchitis with exacerbation 05/03/2006 Overview: COPD Viral pneumonia, unspecified Overview: Pneumonia documented as of this encounter (statuses as of 12/21/2022) [facility] Narrative* Problem Noted Date Resolved Date Chronic pulmonary heart disease 05/03/2006 10/01/2022 Cough 04/01/2006 05/03/2006 Obstructive chronic bronchitis with exacerbation 05/03/2006 Overview: COPD Viral pneumonia, unspecified Overview: Pneumonia documented as of this encounter (statuses as of 01/06/2023) [facility]2006 History of Past illness Narrative* Problem Noted Date Diagnosed Date Resolved Date Chronic pulmonary heart disease 05/03/2006 10/01/2022 Cough 04/01/2006 05/03/2006 Obstructive chronic bronchit is with exacerbation 05/03/2006 Overview: COPD Viral pneumonia, unspecified 05/03/2006 Overview: Pneumonia documented as of this encounter (statuses as of 02/03/2023) [facility]2006 History of Past illness Narrative* Problem Noted Date Diagnosed Date Resolved Date Chronic pulmonary heart disease 05/03/2006 10/01/2022 Cough 04/01/2006 05/03/2006 Obstructive chronic bronchit is with exacerbation 05/03/2006 Overview: COPD Viral pneumonia, unspecified 05/03/2006 Overview: Pneumonia documented as of this encounter (statuses as of 02/04/2023) [facility] History of Past illness Narrative* Problem Noted Date Diagnosed Date Resolved Date Chronic pulmonary heart disease 05/03/2006 10/01/2022 Cough 04/01/2006 05/03/2006 Obstructive chronic bronchit is with exacerbation 05/03/2006 Overview: COPD Viral pneumonia, unspecified 05/03/2006 Overview: Pneumonia documented as of this encounter (statuses as of 02/05/2023) [facility] History of Past illness Narrative* Problem Noted Date Diagnosed Date Resolved Date Chronic pulmonary heart disease 05/03/2006 10/01/2022 Cough 04/01/2006 05/03/2006 Obstructive chronic bronchit is with exacerbation 05/03/2006 Overview: COPD Viral pneumonia, unspecified 05/03/2006 Overview: Pneumonia documented as of this encounter (statuses as of 02/15/2023) [facility] History of Past illness Narrative* Problem Noted Date Diagnosed Date Resolved Date Chronic pulmonary heart disease 05/03/2006 10/01/2022 Cough 04/01/2006 05/03/2006 Obstructive chronic bronchit is with exacerbation 05/03/2006 Overview: COPD Viral pneumonia, unspecified 05/03/2006 Overview: Pneumonia documented as of this encounter (statuses as of 03/02/2023) [facility] History of Past illness Narrative* Problem Noted Date Diagnosed Date Resolved Date Chronic pulmonary heart disease 05/03/2006 10/01/2022 Cough 04/01/2006 05/03/2006 Obstructive chronic bronchit is with exacerbation 05/03/2006 Overview: COPD Viral pneumonia, unspecified 05/03/2006 Overview: Pneumonia documented as of this encounter (statuses as of 03/05/2023) [facility] History of Past illness Narrative* Problem Noted Date Diagnosed Date Resolved Date Chronic pulmonary heart disease 05/03/2006 10/01/2022 Cough 04/01/2006 05/03/2006 Obstructive chronic bronchit is with exacerbation 05/03/2006 Overview: COPD Viral pneumonia, unspecified 05/03/2006 Overview: Pneumonia documented as of this encounter (statuses as of 03/12/2023) [facility] History of Past illness Narrative* Problem Noted Date Diagnosed Date Resolved Date Chronic pulmonary heart disease 05/03/2006 10/01/2022 Cough 04/01/2006 05/03/2006 Obstructive chronic bronchit is with exacerbation 05/03/2006 Overview: COPD Viral pneumonia, unspecified 05/03/2006 Overview: Pneumonia documented as of this encounter (statuses as of 03/26/2023) [facility] History of Past illness Narrative* Problem Noted Date Diagnosed Date Resolved Date Chronic pulmonary heart disease 05/03/2006 10/01/2022 Cough 04/01/2006 05/03/2006 Obstructive chronic bronchit is with exacerbation 05/03/2006 Overview: COPD Viral pneumonia, unspecified 05/03/2006 Overview: Pneumonia documented as of this encounter (statuses as of 03/27/2023) [facility] History of Past illness Narrative* Problem Noted Date Diagnosed Date Resolved Date Chronic pulmonary heart disease 05/03/2006 10/01/2022 Cough 04/01/2006 05/03/2006 Obstructive chronic bronchit is with exacerbation 05/03/2006 Overview: COPD Viral pneumonia, unspecified 05/03/2006 Overview: Pneumonia documented as of this encounter (statuses as of 04/09/2023) [facility] History of Past illness Narrative* Problem Noted Date Diagnosed Date Resolved Date Chronic pulmonary heart disease 05/03/2006 10/01/2022 Cough 04/01/2006 05/03/2006 Obstructive chronic bronchit is with exacerbation 05/03/2006 Overview: COPD Viral pneumonia, unspecified 05/03/2006 Overview: Pneumonia documented as of this encounter (statuses as of 04/15/2023) [facility] History of Past illness Narrative* Problem Noted Date Diagnosed Date Resolved Date Chronic pulmonary heart disease 05/03/2006 10/01/2022 Cough 04/01/2006 05/03/2006 Obstructive chronic bronchit is with exacerbation 05/03/2006 Overview: COPD Viral pneumonia, unspecified 05/03/2006 Overview: Pneumonia documented as of this encounter (statuses as of 04/20/2023) [facility] History of Past illness Narrative* Problem Noted Date Diagnosed Date Resolved Date Chronic pulmonary heart disease 05/03/2006 10/01/2022 Cough 04/01/2006 05/03/2006 Obstructive chronic bronchit is with exacerbation 05/03/2006 Overview: COPD Viral pneumonia, unspecified 05/03/2006 Overview: Pneumonia documented as of this encounter (statuses as of 04/29/2023) [facility] History of Past illness Narrative* Problem Noted Date Diagnosed Date Resolved Date Chronic pulmonary heart disease 05/03/2006 10/01/2022 Cough 04/01/2006 05/03/2006 Obstructive chronic bronchit is with exacerbation 05/03/2006 Overview: COPD Viral pneumonia, unspecified 05/03/2006 Overview: Pneumonia documented as of this encounter (statuses as of 05/04/2023) [facility] History of Past illness Narrative* Problem Noted Date Diagnosed Date Resolved Date Chronic pulmonary heart disease 05/03/2006 10/01/2022 Cough 04/01/2006 05/03/2006 Obstructive chronic bronchit is with exacerbation 05/03/2006 Overview: COPD Viral pneumonia, unspecified 05/03/2006 Overview: Pneumonia documented as of this encounter (statuses as of 05/11/2023) [facility] History of Past illness Narrative* Problem Noted Date Diagnosed Date Resolved Date Chronic pulmonary heart disease 05/03/2006 10/01/2022 Cough 04/01/2006 05/03/2006 Obstructive chronic bronchit is with exacerbation 05/03/2006 Overview: COPD Viral pneumonia, unspecified 05/03/2006 Overview: Pneumonia documented as of this encounter (statuses as of 05/13/2023) [facility] History of Past illness Narrative* Problem Noted Date Diagnosed Date Resolved Date Chronic pulmonary heart disease 05/03/2006 10/01/2022 Cough 04/01/2006 05/03/2006 Obstructive chronic bronchit is with exacerbation 05/03/2006 Overview: COPD Viral pneumonia, unspecified 05/03/2006 Overview: Pneumonia documented as of this encounter (statuses as of 05/26/2023) [facility] History of Past illness Narrative* Problem Noted Date Diagnosed Date Resolved Date Chronic pulmonary heart disease 05/03/2006 10/01/2022 Cough 04/01/2006 05/03/2006 Obstructive chronic bronchit is with exacerbation 05/03/2006 Overview: COPD Viral pneumonia, unspecified 05/03/2006 Overview: Pneumonia documented as of this encounter (statuses as of 06/11/2023) [facility] History of Past illness Narrative* Problem Noted Date Diagnosed Date Resolved Date Chronic pulmonary heart disease 05/03/2006 10/01/2022 Cough 04/01/2006 05/03/2006 Obstructive chronic bronchit is with exacerbation 05/03/2006 Overview: COPD Viral pneumonia, unspecified 05/03/2006 Overview: Pneumonia documented as of this encounter (statuses as of 06/13/2023) [facility] History of Past illness Narrative* Problem Noted Date Diagnosed Date Resolved Date Chronic pulmonary heart disease 05/03/2006 10/01/2022 Cough 04/01/2006 05/03/2006 Obstructive chronic bronchit is with exacerbation 05/03/2006 Overview: COPD Viral pneumonia, unspecified 05/03/2006 Overview: Pneumonia documented as of this encounter (statuses as of 08/07/2023) [facility] History of Past illness Narrative* Problem Noted Date Resolved Date Cough 04/01/2006 05/03/2006 Obstructive chronic bronchitis with exacerbation 05/03/2006 Overview: COPD Viral pneumonia, unspecified Overview: Pneumonia documented as of this encounter (statuses as of 09/29/2021) [facility] History of Past illness Narrative* Problem Noted Date Resolved Date Cough 04/01/2006 05/03/2006 Obstructive chronic bronchitis with exacerbation 05/03/2006 Overview: COPD Viral pneumonia, unspecified Overview: Pneumonia documented as of this encounter (statuses as of 10/09/2021) [address]28-2006 History of Past illness Narrative* Problem Noted Date Resolved Date Cough 04/01/2006 05/03/2006 Obstructive chronic bronchitis with exacerbation 05/03/2006 Overview: COPD Viral pneumonia, unspecified Overview: Pneumonia documented as of this encounter (statuses as of 10/10/2021) [address]28-2006 History of Past illness Narrative* Problem Noted Date Resolved Date Cough 04/01/2006 05/03/2006 Obstructive chronic bronchitis with exacerbation 05/03/2006 Overview: COPD Viral pneumonia, unspecified Overview: Pneumonia documented as of this encounter (statuses as of 10/10/2021) [place] [address]28-2006 History of Past illness Narrative* Problem Noted Date Resolved Date Cough 04/01/2006 05/03/2006 Obstructive chronic bronchitis with exacerbation 05/03/2006 Overview: COPD Viral pneumonia, unspecified Overview: Pneumonia documented as of this encounter (statuses as of 10/16/2021) [place] [address]28-2006 History of Past illness Narrative* Problem Noted Date Resolved Date Cough 04/01/2006 05/03/2006 Obstructive chronic bronchitis with exacerbation 05/03/2006 Overview: COPD Viral pneumonia, unspecified Overview: Pneumonia documented as of this encounter (statuses as of 10/24/2021) [place] [address]28-2006 History of Past illness Narrative* Problem Noted Date Resolved Date Cough 04/01/2006 05/03/2006 Obstructive chronic bronchitis with exacerbation 05/03/2006 Overview: COPD Viral pneumonia, unspecified Overview: Pneumonia documented as of this encounter (statuses as of 11/03/2021) [facility] History of Past illness Narrative* Problem Noted Date Resolved Date Cough 04/01/2006 05/03/2006 Obstructive chronic bronchitis with exacerbation 05/03/2006 Overview: COPD Viral pneumonia, unspecified Overview: Pneumonia documented as of this encounter (statuses as of 11/06/2021) [place] [address]28-2006 History of Past illness Narrative* Problem Noted Date Resolved Date Cough 04/01/2006 05/03/2006 Obstructive chronic bronchitis with exacerbation 05/03/2006 Overview: COPD Viral pneumonia, unspecified Overview: Pneumonia documented as of this encounter (statuses as of 11/20/2021) [place] [address]28-2006 History of Past illness Narrative* Problem Noted Date Resolved Date Cough 04/01/2006 05/03/2006 Obstructive chronic bronchitis with exacerbation 05/03/2006 Overview: COPD Viral pneumonia, unspecified Overview: Pneumonia documented as of this encounter (statuses as of 11/24/2021) [place] [address]28-2006 History of Past illness Narrative* Problem Noted Date Resolved Date Cough 04/01/2006 05/03/2006 Obstructive chronic bronchitis with exacerbation 05/03/2006 Overview: COPD Viral pneumonia, unspecified Overview: Pneumonia documented as of this encounter (statuses as of 12/06/2021) [facility] History of Past illness Narrative* Problem Noted Date Resolved Date Cough 04/01/2006 05/03/2006 Obstructive chronic bronchitis with exacerbation 05/03/2006 Overview: COPD Viral pneumonia, unspecified Overview: Pneumonia documented as of this encounter (statuses as of 12/06/2021) [facility] History of Past illness Narrative* Problem Noted Date Resolved Date Cough 04/01/2006 05/03/2006 Obstructive chronic bronchitis with exacerbation 05/03/2006 Overview: COPD Viral pneumonia, unspecified Overview: Pneumonia documented as of this encounter (statuses as of 12/23/2021) [place] [address]28-2006 History of Past illness Narrative* Problem Noted Date Resolved Date Cough 04/01/2006 05/03/2006 Obstructive chronic bronchitis with exacerbation 05/03/2006 Overview: COPD Viral pneumonia, unspecified Overview: Pneumonia documented as of this encounter (statuses as of 01/30/2022) [facility] History of Past illness Narrative* Problem Noted Date Resolved Date Cough 04/01/2006 05/03/2006 Obstructive chronic bronchitis with exacerbation 05/03/2006 Overview: COPD Viral pneumonia, unspecified Overview: Pneumonia documented as of this encounter (statuses as of 02/12/2022) [facility] History of Past illness Narrative* Problem Noted Date Resolved Date Cough 04/01/2006 05/03/2006 Obstructive chronic bronchitis with exacerbation 05/03/2006 Overview: COPD Viral pneumonia, unspecified Overview: Pneumonia documented as of this encounter (statuses as of 02/19/2022) [facility] History of Past illness Narrative* Problem Noted Date Resolved Date Cough 04/01/2006 05/03/2006 Obstructive chronic bronchitis with exacerbation 05/03/2006 Overview: COPD Viral pneumonia, unspecified Overview: Pneumonia documented as of this encounter (statuses as of 02/20/2022) [facility] History of Past illness Narrative* Problem Noted Date Resolved Date Cough 04/01/2006 05/03/2006 Obstructive chronic bronchitis with exacerbation 05/03/2006 Overview: COPD Viral pneumonia, unspecified Overview: Pneumonia documented as of this encounter (statuses as of 02/23/2022) [facility] History of Past illness Narrative* Problem Noted Date Resolved Date Cough 04/01/2006 05/03/2006 Obstructive chronic bronchitis with exacerbation 05/03/2006 Overview: COPD Viral pneumonia, unspecified Overview: Pneumonia documented as of this encounter (statuses as of 02/25/2022) [facility] History of Past illness Narrative* Problem Noted Date Resolved Date Cough 04/01/2006 05/03/2006 Obstructive chronic bronchitis with exacerbation 05/03/2006 Overview: COPD Viral pneumonia, unspecified Overview: Pneumonia documented as of this encounter (statuses as of 03/05/2022) [facility] History of Past illness Narrative* Problem Noted Date Resolved Date Cough 04/01/2006 05/03/2006 Obstructive chronic bronchitis with exacerbation 05/03/2006 Overview: COPD Viral pneumonia, unspecified Overview: Pneumonia documented as of this encounter (statuses as of 03/11/2022) [facility] History of Past illness Narrative* Problem Noted Date Resolved Date Cough 04/01/2006 05/03/2006 Obstructive chronic bronchitis with exacerbation 05/03/2006 Overview: COPD Viral pneumonia, unspecified Overview: Pneumonia documented as of this encounter (statuses as of 03/13/2022) [facility] History of Past illness Narrative* Problem Noted Date Resolved Date Cough 04/01/2006 05/03/2006 Obstructive chronic bronchitis with exacerbation 05/03/2006 Overview: COPD Viral pneumonia, unspecified Overview: Pneumonia documented as of this encounter (statuses as of 03/19/2022) [facility] History of Past illness Narrative* Problem Noted Date Resolved Date Cough 04/01/2006 05/03/2006 Obstructive chronic bronchitis with exacerbation 05/03/2006 Overview: COPD Viral pneumonia, unspecified Overview: Pneumonia documented as of this encounter (statuses as of 03/26/2022) [facility] History of Past illness Narrative* Problem Noted Date Resolved Date Cough 04/01/2006 05/03/2006 Obstructive chronic bronchitis with exacerbation 05/03/2006 Overview: COPD Viral pneumonia, unspecified Overview: Pneumonia documented as of this encounter (statuses as of 04/03/2022) [facility] History of Past illness Narrative* Problem Noted Date Resolved Date Cough 04/01/2006 05/03/2006 Obstructive chronic bronchitis with exacerbation 05/03/2006 Overview: COPD Viral pneumonia, unspecified Overview: Pneumonia documented as of this encounter (statuses as of 05/15/2022) [facility] History of Past illness Narrative* Problem Noted Date Resolved Date Cough 04/01/2006 05/03/2006 Obstructive chronic bronchitis with exacerbation 05/03/2006 Overview: COPD Viral pneumonia, unspecified Overview: Pneumonia documented as of this encounter (statuses as of 07/08/2022) [facility] History of Past illness Narrative* Problem Noted Date Resolved Date Cough 04/01/2006 05/03/2006 Obstructive chronic bronchitis with exacerbation 05/03/2006 Overview: COPD Viral pneumonia, unspecified Overview: Pneumonia documented as of this encounter (statuses as of 08/06/2022) [facility] History of Past illness Narrative* Problem Noted Date Resolved Date Cough 04/01/2006 05/03/2006 Obstructive chronic bronchitis with exacerbation 05/03/2006 Overview: COPD Viral pneumonia, unspecified Overview: Pneumonia documented as of this encounter (statuses as of 08/18/2022) [place] [address]28-2006 History of Past illness Narrative* Problem Noted Date Resolved Date Cough 04/01/2006 05/03/2006 Obstructive chronic bronchitis with exacerbation 05/03/2006 Overview: COPD Viral pneumonia, unspecified Overview: Pneumonia documented as of this encounter (statuses as of 08/20/2022) [facility] History of Past illness Narrative* Problem Noted Date Resolved Date Cough 04/01/2006 05/03/2006 Obstructive chronic bronchitis with exacerbation 05/03/2006 Overview: COPD Viral pneumonia, unspecified Overview: Pneumonia documented as of this encounter (statuses as of 08/20/2022) [place] [address]-2006 History of Past illness Narrative* Problem Noted Date Resolved Date Cough 04/01/2006 05/03/2006 Obstructive chronic bronchitis with exacerbation 05/03/2006 Overview: COPD Viral pneumonia, unspecified Overview: Pneumonia documented as of this encounter (statuses as of 09/01/2022) [facility] History of Past illness Narrative* Problem Noted Date Resolved Date Cough 04/01/2006 05/03/2006 Obstructive chronic bronchitis with exacerbation 05/03/2006 Overview: COPD Viral pneumonia, unspecified Overview: Pneumonia documented as of this encounter (statuses as of 09/21/2022) [facility] History of Past illness Narrative* Problem Noted Date Resolved Date Cough 04/01/2006 05/03/2006 Obstructive chronic bronchitis with exacerbation 05/03/2006 Overview: COPD Viral pneumonia, unspecified Overview: Pneumonia documented as of this encounter (statuses as of 09/29/2022) [facility] No data available for this section [facility] Evaluation note* Diagnosis GUME (acute kidney injury) (HCC)- Primary Acute kidney failure, unspecified Insomnia, unspecified type Pedal edema Edema Impacted stool in intestine (HCC) Fecal impaction Hypervolemia, unspecified hypervolemia type Congestive heart failure, unspecified HF chronicity, unspecified heart failure type (HCC) Cardiomegaly [facility] Diagnosis Insomnia, unspecified type [facility] Diagnosis Congestive heart failure, unspecified HF chronicity, unspecified heart failure type (HCC)- Primary Pedal edema Edema Diastolic dysfunction Heart disease, unspecified Chronic obstructive pulmonary disease, unspecified COPD type (HCC) [facility] Diagnosis Procedure not carried out- Primary Procedure not carried out for other reasons [facility] Diagnosis Anxiety- Primary Anxiety state, unspecified Insomnia, unspecified type Essential hypertension Unspecified essential hypertension [facility] Diagnosis Post-operative state- Primary Other postprocedural status SDH (subdural hematoma) Subdural hemorrhage Anemia (Low HGB) Anemia, unspecified Electrolyte disorder (K, Cl, or Na) Electrolyte and fluid disorders not elsewhere classified [facility] Medication management Encounter for long-term (current) use of other medications [facility] Diagnosis Pain at surgical incision- Primary Disturbance of skin sensation [facility]* Diagnosis Urinary tract infection without hematuria, site unspecified- Primary Fall, sequela Closed nondisplaced fracture of seventh cervical vertebra, unspecified fracture morphology, sequela Laceration of head without foreign body, unspecified part of head, sequela [facility] Right leg numbness- Primary [...] morphology, subsequent encounter [facility] Essential hypertension Unspecified essential hypertension [facility] Hospital discharge follow-up- Primary [...] Other postprocedural status [facility] Insomnia, unspecified type [facility] Diagnosis Panlobular emphysema (HCC)- Primary Other emphysema Chronic obstructive pulmonary disease, unspecified COPD type (HCC) Chronic hypercapnic respiratory failure (HCC) Chronic respiratory failure Anxiety Anxiety state, unspecified Carcinoma in situ of left breast, unspecified type Insomnia, unspecified type Screening mammogram for breast cancer Hemorrhagic stroke (HCC) Intracerebral hemorrhage Mixed hyperlipidemia Sleep apnea, unspecified type [facility]* Diagnosis Pain at surgical incision Disturbance of skin sensation documented in this encounter [facility] note* Diagnosis History of recent hospitalization- Primary Personal history of unspecified disease Chronic obstructive pulmonary disease, unspecified COPD type (HCC) Chronic hypercapnic respiratory failure (HCC) Chronic respiratory failure Decompensated heart failure (HCC) RLS (restless legs syndrome) Restless legs syndrome (RLS) Generalized pain documented in this encounter [facility] note* Diagnosis Hemorrhagic stroke (HCC)- Primary Intracerebral hemorrhage Impaired mobility and activities of daily living Other ill-defined conditions [facility]* Diagnosis Chronic obstructive pulmonary disease, unspecified COPD type (HCC)- Primary Acute deep vein thrombosis (DVT) of distal vein of right lower extremity (HCC) Acute subdural hematoma (HCC) Subdural hemorrhage Seizure-like activity (HCC) Other convulsions Insomnia, unspecified type documented in this encounter [facility] note* Diagnosis History of recent hospitalization- Primary Personal history of unspecified disease Chronic obstructive pulmonary disease, unspecified COPD type (HCC) Insomnia, unspecified type Anemia, unspecified type Elevated liver enzymes Other nonspecific abnormal serum enzyme levels Medication monitoring encounter Encounter for therapeutic drug monitoring [facility]* Diagnosis Insomnia, unspecified type [facility]* Diagnosis Insomnia, unspecified type- Primary documented in this encounter [facility] note* Diagnosis Insomnia, unspecified type documented in this encounter [facility] note* Diagnosis Essential hypertension Unspecified essential hypertension documented in this encounter [facility] note* Diagnosis Insomnia, unspecified type- Primary Anemia, unspecified type Elevated liver enzymes Other nonspecific abnormal serum enzyme levels Mixed hyperlipidemia documented in this encounter [facility] note* Diagnosis Insomnia, unspecified type [facility] Diagnosis Insomnia, unspecified type documented in this encounter [facility] note* Diagnosis Insomnia, unspecified type [facility]* Diagnosis Insomnia, unspecified type documented in this encounter [facility] note* Diagnosis Subdural hematoma (HCC)- Primary Subdural hemorrhage Status post fall Unspecified fall Occipital scalp laceration, sequela Chronic obstructive pulmonary disease, unspecified COPD type (HCC) Hypotension, unspecified hypotension type documented in this encounter [facility] note* Diagnosis Insomnia, unspecified type documented in this encounter [facility] note* Diagnosis Insomnia, unspecified type- Primary Confusion Unspecified psychosis Subdural hematoma (HCC) Subdural hemorrhage RLS (restless legs syndrome) Restless legs syndrome (RLS) Anxiety Anxiety state, unspecified documented in this encounter [facility] note* Diagnosis Seizure (HCC)- Primary Other convulsions Seizure (HCC) Other convulsions Hypotension, unspecified hypotension type Acute respiratory failure with hypoxia and hypercapnia ([facility]) Cerebrovascular accident (CVA) due to embolism of cerebral artery (HCC) Pain around percutaneous endoscopic gastrostomy (PEG) tube site, initial encounter Acute respiratory failure with hypoxia and hypercapnia ([facility]) documented in this encounter [facility] note* Diagnosis Insomnia, unspecified type documented in this encounter [facility] note* Diagnosis 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 Panlobular emphysema (HCC) Other emphysema Seizure-like activity (HCC) Other convulsions Insomnia, unspecified type documented in this encounter [facility] note* Diagnosis Insomnia, unspecified type documented in this encounter [facility] note* Diagnosis Insomnia, unspecified type documented in this encounter [facility] note* Diagnosis Insomnia, unspecified type documented in this encounter [facility] note* Diagnosis Chronic obstructive pulmonary disease, unspecified COPD type (HCC)- Primary 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) Gastrostomy status Malnutrition of mild degree ([facility]) Malnutrition of mild degree documented in this encounter [facility] note* Diagnosis Insomnia, unspecified type documented in this encounter [facility] note* Diagnosis Insomnia, unspecified type documented in this encounter [facility] note* Diagnosis 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 Tracheostomy status Anxiety Anxiety state, unspecified Chronic obstructive pulmonary disease, unspecified COPD type ([facility]) documented in this encounter [facility] note* Diagnosis 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) [Z93.0]- Primary Tracheostomy status documented in this encounter [facility] note* Diagnosis Falls frequently- Primary Personal history of fall Insomnia, unspecified type Polypharmacy Encounter for long-term (current) use of other medications documented in this encounter [facility] note* Diagnosis Status epilepticus (CMS/HCC) (HCC)- Primary Epileptic grand mal status Status epilepticus (CMS/HCC) (HCC) Epileptic grand mal status Hypotension, unspecified hypotension type Acute respiratory failure with hypoxia and hypercapnia ([facility]) documented in this encounter [facility] note* Diagnosis Insomnia, unspecified type documented in this encounter [facility] note* Diagnosis Hospital discharge follow-up- Primary Other follow-up examination Decompensated heart failure (HCC) Traumatic subdural hemorrhage with loss of consciousness of unspecified duration, initial encounter ([facility]) Malnutrition of mild degree (HCC) Malnutrition of mild degree Right leg pain Pain in limb documented in this encounter [facility] note* Diagnosis Chronic pain of right lower extremity- Primary Right leg pain Pain in limb Restless legs Restless legs syndrome (RLS) Anxiety Anxiety state, unspecified documented in this encounter [facility] note* Diagnosis Mixed hyperlipidemia documented in this encounter [facility] note* Diagnosis Insomnia, unspecified type documented in this encounter [facility] note* Diagnosis Hospital discharge follow-up- Primary Other follow-up examination Anxiety Anxiety state, unspecified documented in this encounter [facility] note* Diagnosis 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 Tracheostomy status Chronic obstructive pulmonary disease, unspecified COPD type (HCC) Chronic hypercapnic respiratory failure (HCC) Chronic respiratory failure documented in this encounter [facility] note* Diagnosis RLS (restless legs syndrome) Restless legs syndrome (RLS) Anxiety Anxiety state, unspecified Insomnia, unspecified type documented in this encounter [facility] note* Diagnosis Insomnia, unspecified type documented in this encounter [facility] note* Diagnosis Chronic obstructive pulmonary disease, unspecified COPD type (HCC)- Primary Chronic respiratory failure with hypoxia and hypercapnia (HCC) Tracheostomy present (HCC) Former smoker Personal history of tobacco use, presenting hazards to health documented in this encounter [facility] note* Diagnosis 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- Primary 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) Tracheostomy status Anxiety Anxiety state, unspecified documented in this encounter [facility] note* Diagnosis Tracheostomy present (HCC)- Primary documented in this encounter [facility] for referral (narrative)* Outpatient Procedure (Urgent) - Pending Review Specialty Diagnoses / Procedures Referred By Aubree t Referred To [facility] Diagnoses Cardiomegaly Procedures ECHO ECHO TTHRC R-T 2D W/WOM-MODE COMPL SPEC&COLR D Maryam Franco MD [address] [place] [address] [facility] [address] [place] [id number] Referral ID Status Reason Start Date Expiration Date Visits Requested Visits Authorized [id number] Pending Review Auto-Generat ed Referral 10/08/2021 10/08/2022 1 1 * Outpatient Procedure (Routine) - Pending Review Specialty Diagnoses / Procedures Referred By Contjuan manuel t Referred To [facility] Diagnoses Cardiomegaly Procedures ECG COMPLETE ECG ROUTINE ECG W/LEAST 12 LDS W/I&R Maryam Franco MD [address] [place] [address] [facility] [address] [place] [address] Referral ID Status Reason Start Date Expiration Date Visits Requested Visits Authorized [id number] Pending Review Auto-Generat ed Referral 10/08/2021 10/08/2022 1 1 [facility] for referral (narrative)* Diagnostic Procedure Only (Routine) - Pending Review Specialty Diagnoses / Procedures Referred By Aubree lubin Referred To Contact BR [facility]AG[facility] Diagnoses Screening mammogram for breast cancer Procedures GARRETT SCREENING SCREENING MAMMOGRAPHY BI 2-VIEW BREAST INC CAD Maryam Franco MD [address] [place] [address] [facility] [address] [place] [address] Referral ID Status Reason Start Date Expiration Date Visits Requested Visits Authorized [id number] Pending Review Auto-Generat ed Referral 10/01/2022 10/31/2023 1 1 [facility] for referral (narrative)* Diagnostic Procedure Only (Routine) - Authorized Specialty Diagnoses / Procedures Referred By Aubree lubin Referred To Contact XR IMAGING Diagnoses Right leg pain Procedures XR HIP GENERAL 3V PELV/AP/LAT RIGHT RADEX HIP UNILATERAL WITH PELVIS 2-3 VIEWS Maryam Franco MD [address] [place] [address] [place] [address] Referral ID Status Reason Start Date Expiration Date Visits Requested Visits Authorized [id number] Authorized Auto-Generat ed Referral 02/17/2024 03/18/2025 1 1 * Diagnostic Procedure Only (Routine) - Authorized Specialty Diagnoses / Procedures Referred By Contac t Referred To Contact XR IMAGING Diagnoses Right leg pain Procedures XR LUMBAR GENERAL 3V AP/LAT/L5-S1 RADEX SPINE LUMBOSACRAL 2/3 VIEWS Maryam Franco MD [address] [place] [address] [place] [address] Referral ID Status Reason Start Date Expiration Date Visits Requested Visits Authorized [id number] Authorized Auto-Generat ed Referral 02/17/2024 03/18/2025 1 1 [facility] Procedure (Routine) - Authorized Specialty Diagnoses / Procedures Referred By Contac t Referred To Contact [facility] Diagnoses Chronic obstructive pulmonary disease, unspecified COPD type (HCC) Procedures OXIMETRY WITH AMBULATION NONINVASIVE EAR/PULSE OXIMETRY MULTIPLE DANNY Flannery, Pepper Klein MD [address] [place] [address] [facility] [address] [place] [address] Referral ID Status Reason Start Date Expiration Date Visits Requested Visits Authorized [id number] Authorized Auto-Generat ed Referral 05/25/2025 1 1 [facility] Summary Purpose Family History No Family History Records FoundNo Family History Records FoundNo Family History Records FoundNo Family History Records FoundNo Family History Records FoundNo Family History Records FoundNo Family History Records FoundNo Family History Records FoundNo Family History Records Found Advance Directives Documents on File Type Date Recorded Patient Attendant Lodging Facilities Expl anation Advance Directive(s) 08/20/2016 6:35 AM Documents on File Type Date Recorded Patient Attendant Lodging Facilities Expl anation Advance Directive(s) 08/20/2016 6:35 AM [...] Referral Specialty Diagnoses / Procedures Referred By Aubree lubin Referred To Contact Pain Management Diagnoses Chronic pain of right lower extremity Procedures CONSULT TO PAIN MGT OFFICE/OUTPATIENT [facility] 60 MINUTES Maryam Franco MD [address] [place] [address] Referral ID Status Reason Start Date Expiration Date Visits Requested Visits Authorized [id number] Authorized PCP Requested Referral 02/23/2024 05/23/2024 1 1 Specialty Diagnoses / Procedures Referred By Aubree lubin Referred To Contact Gerontology / GERIATRICS Diagnoses Falls frequently Polypharmacy Procedures CONSULT TO GERIATRICS OFFICE/OUTPATIENT [facility] 60 MINUTES Joan Johnson APRN.CNP [address] [place] [address] [address] [place] [address] Referral ID Status Reason Start Date Expiration Date V isits Requested Visits Authorized [id number] Closed PCP Requested Referral 01/26/2024 01/25/2025 1 1 Specialty Diagnoses / Procedures Referred By Contac t Referred To Contact General Surgery Diagnoses 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) Procedures CONSULT TO GENERAL SURGERY OFFICE/OUTPATIENT [facility] 60 MINUTES Issa Herman MD [address] [place] [address] Referral ID Status Reason Start Date Expiration Date Visits Requested Visits Authorized [id number] Authorized PCP Requested Referral 12/02/2023 12/01/2024 1 1 Specialty Diagnoses / Procedures Referred By Contac t Referred To Contact Ent - Otolaryngology Diagnoses 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) Procedures CONSULT TO ENT Issa Herman MD [address] [place] [address] Referral ID Status Reason Start Date Expiration Date Visits Requested Visits Authorized [id number] Ref Not Required PCP Requested Referral 12/02/2023 12/01/2024 1 1 Specialty Diagnoses / Procedures Referred By Contac t Referred To Contact Diagnoses Pain around percutaneous endoscopic gastrostomy (PEG) tube site, initial encounter Crys Canseco DO [address] [place] [address] Referral ID Status Reason Start Date Expiration Date V isits Requested Visits Authorized [id number] Pending Review 1 1 Specialty Diagnoses / Procedures Referred By Contac t Referred To Contact Diagnoses Insomnia, unspecified type Confusion RLS (restless legs syndrome) Procedures CONSULT TO SLEEP MEDICINE - ADULT OFFICE/OUTPATIENT [facility] 60 MINUTES Joanie Benitez PA-C [address] [place] [address] Referral ID Status Reason Start Date Expiration Date Visits Requested Visits Authorized [id number] Authorized PCP Requested Referral 09/23/2023 09/22/2024 1 1 Specialty Diagnoses / Procedures Referred By Contac t Referred To Contact Diagnoses Insomnia, unspecified type Joan Johnson APRN.TELETYPESETTER [address] [place] [address] Referral ID Status Reason Start Date Expiration Date Visits Re quested Visits Authorized [id number] Denied 1 1 Specialty Diagnoses / Procedures Referred By Contac t Referred To Contact Diagnoses Insomnia, unspecified type Joanie Benitez PA-C [address] [place] [address] Referral ID Status Reason Start Date Expiration Date V isits Requested Visits Authorized [id number] Authorized 02/05/2023 02/05/2023 1 1 Specialty Diagnoses / Procedures Referred By Contac t Referred To Contact Cardiology Diagnoses Decompensated heart failure (HCC) History of recent hospitalization Procedures CONSULT TO CARDIOLOGY OFFICE/OUTPATIENT [facility] 60-74 MINUTES Joan Johnson APRN.TELETYPESETTER [address] [place] [address] Referral ID Status Reason Start Date Expiration Date Visits Requested Visits Authorized [id number] Pending Review PCP Requested Referral 10/16/2022 10/16/2023 1 1 Specialty Diagnoses / Procedures Referred By Contac t Referred To Contact Gastroenterology Diagnoses Gastrojejunostomy tube status (HCC) Procedures CONSULT TO GASTROENTEROLOGY OFFICE/OUTPATIENT [facility] 60-74 MINUTES Maryam Franco MD [address] [place] [address] Referral ID Status Reason Start Date Expiration Date Visits Requested Visits Authorized [id number] Pending Review PCP Requested Referral 08/19/2022 08/19/2023 1 1 Specialty Diagnoses / Procedures Referred By Contac t Referred To Contact CT IMAGING Diagnoses Closed nondisplaced fracture of seventh cervical vertebra with routine healing, unspecified fracture morphology, subsequent encounter Procedures CT CERVICAL SPINE WO IVCON CT CERVICAL SPINE W/O CONTRAST MATERIAL Kishan Esquivel Jr., MD [address] [facility] [address] [place] [address] Ct Imaging Referral ID Status Reason Start Date Expiration Date Visits Requested Visits Authorized [id number] Pending Review Auto-Generat ed Referral 04/03/2022 05/03/2023 1 1 Specialty Diagnoses / Procedures Referred By Contac t Referred To Contact Neurosurgery Diagnoses Compression fracture of T12 vertebra, sequela History of subdural hematoma Procedures CONSULT TO NEUROSURGERY Kishan Esquivel Jr., MD [address] [facility] [address] [place] [address] Referral ID Status Reason Start Date Expiration Date Visits Requested Visits Authorized [id number] Ref Not Required PCP Requested Referral 04/03/2022 07/02/2022 3 3 Specialty Diagnoses / Procedures Referred By Contac t Referred To Contact CT IMAGING Diagnoses Right leg numbness Right leg weakness Midline low back pain, unspecified chronicity, unspecified whether sciatica present Compression fracture of T12 vertebra, sequela Procedures CT LUMBAR SPINE WO IVCON CT LUMBAR SPINE W/O CONTRAST MATERIAL Kishan Esquivel Jr., MD [address] [facility] [address] [place] [address] Ct Imaging Referral ID Status Reason Start Date Expiration Date Visits Requested Visits Authorized [id number] Authorized Auto-Generat ed Referral 04/03/2022 05/03/2023 1 1 Specialty Diagnoses / Procedures Referred By Contac t Referred To Contact CT IMAGING Diagnoses Right leg numbness Right leg weakness Midline low back pain, unspecified chronicity, unspecified whether sciatica present Compression fracture of T12 vertebra, sequela Procedures CT THORACIC SPINE WO IVCON CT THORACIC SPINE W/O CONTRAST MATERIAL Kishan Esquivel Jr., MD [address] [facility] [address] [place] [address] Ct Imaging Referral ID Status Reason Start Date Expiration Date Visits Requested Visits Authorized [id number] Authorized Auto-Generat ed Referral 04/03/2022 05/03/2023 1 1 Health Concerns Infection Onset Date Last Indicated Resolved Time RSV 07/14/2023 07/14/202308/06/2023 2:14 PM EST COVID-19 Rule-Out 08/06/2023 08/06/2023 08/06/2023 12:46 PM EST Additional Source Comments INFORMATION SOURCE (unrecogn ized section and content) DATE CREATED AUTHOR 12/24/2017 [place] [facility] DATE CREATED AUTHOR AUTHOR'S ORGANIZ ATION 12/28/2017 [facility] DATE CREATED AUTHOR AUTHOR'S ORGANIZ ATION 01/09/2022 [facility] DATE CREATED AUTHOR AUTHOR'S ORGANIZ ATION 02/08/2022 [facility] DATE CREATED AUTHOR AUTHOR'S ORGANIZ ATION 08/25/2022 [facility] DATE CREATED AUTHOR AUTHOR'S ORGANIZ ATION [facility] DATE CREATED AUTHOR AUTHOR'S ORGANIZ ATION 11/13/2023 [facility] ([place] DATE CREATED AUTHOR AUTHOR'S ORGANIZ ATION 03/03/2024 [facility] DATE CREATED AUTHOR AUTHOR'S ORGANIZ ATION 04/27/2024 [facility] Source Comments (unrecognize d section and content) In the event this informatio n is protected by the Federal Confidentiality of Alcohol and Drug Abuse Patient Records regulations: The Federal rules restrict any use of the information to criminally investigate or prosecute any alcohol or drug abuse patient.[facility] the event this information is protected by the Federal Confidentiality of Alcohol and Drug Abuse Patient Records regulations: The Federal rules restrict any use of the information to criminally investigate or prosecute any alcohol or drug abuse patient.[facility] the event this information is protected by the Federal Confidentiality of Alcohol and Drug Abuse Patient Records regulations: The Federal rules restrict any use of the information to criminally investigate or prosecute any alcohol or drug abuse patient.[facility] the event this information is protected by the Federal Confidentiality of Alcohol and Drug Abuse Patient Records regulations: The Federal rules restrict any use of the information to criminally investigate or prosecute any alcohol or drug abuse patient.[facility] the event this information is protected by the Federal Confidentiality of Alcohol and Drug Abuse Patient Records regulations: The Federal rules restrict any use of the information to criminally investigate or prosecute any alcohol or drug abuse patient.[facility] the event this information is protected by the Federal Confidentiality of Alcohol and Drug Abuse Patient Records regulations: The Federal rules restrict any use of the information to criminally investigate or prosecute any alcohol or drug abuse patient.[facility] the event this information is protected by the Federal Confidentiality of Alcohol and Drug Abuse Patient Records regulations: The Federal rules restrict any use of the information to criminally investigate or prosecute any alcohol or drug abuse patient.[facility] the event this information is protected by the Federal Confidentiality of Alcohol and Drug Abuse Patient Records regulations: The Federal rules restrict any use of the information to criminally investigate or prosecute any alcohol or drug abuse patient.[facility] the event this information is protected by the Federal Confidentiality of Alcohol and Drug Abuse Patient Records regulations: The Federal rules restrict any use of the information to criminally investigate or prosecute any alcohol or drug abuse patient.[facility] the event this information is protected by the Federal Confidentiality of Alcohol and Drug Abuse Patient Records regulations: The Federal rules restrict any use of the information to criminally investigate or prosecute any alcohol or drug abuse patient.[facility] the event this information is protected by the Federal Confidentiality of Alcohol and Drug Abuse Patient Records regulations: The Federal rules restrict any use of the information to criminally investigate or prosecute any alcohol or drug abuse patient.[facility] the event this information is protected by the Federal Confidentiality of Alcohol and Drug Abuse Patient Records regulations: The Federal rules restrict any use of the information to criminally investigate or prosecute any alcohol or drug abuse patient.[facility] the event this information is protected by the Federal Confidentiality of Alcohol and Drug Abuse Patient Records regulations: The Federal rules restrict any use of the information to criminally investigate or prosecute any alcohol or drug abuse patient.[facility] the event this information is protected by the Federal Confidentiality of Alcohol and Drug Abuse Patient Records regulations: The Federal rules restrict any use of the information to criminally investigate or prosecute any alcohol or drug abuse patient.[facility] the event this information is protected by the Federal Confidentiality of Alcohol and Drug Abuse Patient Records regulations: The Federal rules restrict any use of the information to criminally investigate or prosecute any alcohol or drug abuse patient.[facility] the event this information is protected by the Federal Confidentiality of Alcohol and Drug Abuse Patient Records regulations: The Federal rules restrict any use of the information to criminally investigate or prosecute any alcohol or drug abuse patient.[facility] the event this information is protected by the Federal Confidentiality of Alcohol and Drug Abuse Patient Records regulations: The Federal rules restrict any use of the information to criminally investigate or prosecute any alcohol or drug abuse patient.[facility] the event this information is protected by the Federal Confidentiality of Alcohol and Drug Abuse Patient Records regulations: The Federal rules restrict any use of the information to criminally investigate or prosecute any alcohol or drug abuse patient.[facility] the event this information is protected by the Federal Confidentiality of Alcohol and Drug Abuse Patient Records regulations: The Federal rules restrict any use of the information to criminally investigate or prosecute any alcohol or drug abuse patient.[facility] the event this information is protected by the Federal Confidentiality of Alcohol and Drug Abuse Patient Records regulations: The Federal rules restrict any use of the information to criminally investigate or prosecute any alcohol or drug abuse patient.[facility] the event this information is protected by the Federal Confidentiality of Alcohol and Drug Abuse Patient Records regulations: The Federal rules restrict any use of the information to criminally investigate or prosecute any alcohol or drug abuse patient.[facility] the event this information is protected by the Federal Confidentiality of Alcohol and Drug Abuse Patient Records regulations: The Federal rules restrict any use of the information to criminally investigate or prosecute any alcohol or drug abuse patient.[facility] the event this information is protected by the Federal Confidentiality of Alcohol and Drug Abuse Patient Records regulations: The Federal rules restrict any use of the information to criminally investigate or prosecute any alcohol or drug abuse patient.[facility]In the event this information is protected by the Federal Confidentiality of Alcohol and Drug Abuse Patient Records regulations: The Federal rules restrict any use of the information to criminally investigate or prosecute any alcohol or drug abuse patient.[facility] HospitalIn the event this information is protected by the Federal Confidentiality of Alcohol and Drug Abuse Patient Records regulations: The Federal rules restrict any use of the information to criminally investigate or prosecute any alcohol or drug abuse patient.[facility]In the event this information is protected by the Federal Confidentiality of Alcohol and Drug Abuse Patient Records regulations: The Federal rules restrict any use of the information to criminally investigate or prosecute any alcohol or drug abuse patient.[facility]In the event this information is protected by the Federal Confidentiality of Alcohol and Drug Abuse Patient Records regulations: The Federal rules restrict any use of the information to criminally investigate or prosecute any alcohol or drug abuse patient.[facility]In the event this information is protected by the Federal Confidentiality of Alcohol and Drug Abuse Patient Records regulations: The Federal rules restrict any use of the information to criminally investigate or prosecute any alcohol or drug abuse patient.[facility]In the event this information is protected by the Federal Confidentiality of Alcohol and Drug Abuse Patient Records regulations: The Federal rules restrict any use of the information to criminally investigate or prosecute any alcohol or drug abuse patient.[facility]In the event this information is protected by the Federal Confidentiality of Alcohol and Drug Abuse Patient Records regulations: The Federal rules restrict any use of the information to criminally investigate or prosecute any alcohol or drug abuse patient.[facility]In the event this information is protected by the Federal Confidentiality of Alcohol and Drug Abuse Patient Records regulations: The Federal rules restrict any use of the information to criminally investigate or prosecute any alcohol or drug abuse patient.[facility]In the event this information is protected by the Federal Confidentiality of Alcohol and Drug Abuse Patient Records regulations: The Federal rules restrict any use of the information to criminally investigate or prosecute any alcohol or drug abuse patient.[facility]In the event this information is protected by the Federal Confidentiality of Alcohol and Drug Abuse Patient Records regulations: The Federal rules restrict any use of the information to criminally investigate or prosecute any alcohol or drug abuse patient.[facility]In the event this information is protected by the Federal Confidentiality of Alcohol and Drug Abuse Patient Records regulations: The Federal rules restrict any use of the information to criminally investigate or prosecute any alcohol or drug abuse patient.[facility]In the event this information is protected by the Federal Confidentiality of Alcohol and Drug Abuse Patient Records regulations: The Federal rules restrict any use of the information to criminally investigate or prosecute any alcohol or drug abuse patient.[facility]In the event this information is protected by the Federal Confidentiality of Alcohol and Drug Abuse Patient Records regulations: The Federal rules restrict any use of the information to criminally investigate or prosecute any alcohol or drug abuse patient.[facility]In the event this information is protected by the Federal Confidentiality of Alcohol and Drug Abuse Patient Records regulations: The Federal rules restrict any use of the information to criminally investigate or prosecute any alcohol or drug abuse patient.[facility]In the event this information is protected by the Federal Confidentiality of Alcohol and Drug Abuse Patient Records regulations: The Federal rules restrict any use of the information to criminally investigate or prosecute any alcohol or drug abuse patient.[facility]In the event this information is protected by the Federal Confidentiality of Alcohol and Drug Abuse Patient Records regulations: The Federal rules restrict any use of the information to criminally investigate or prosecute any alcohol or drug abuse patient.[facility] HospitalIn the event this information is protected by the Federal Confidentiality of Alcohol and Drug Abuse Patient Records regulations: The Federal rules restrict any use of the information to criminally investigate or prosecute any alcohol or drug abuse patient.[facility]In the event this information is protected by the Federal Confidentiality of Alcohol and Drug Abuse Patient Records regulations: The Federal rules restrict any use of the information to criminally investigate or prosecute any alcohol or drug abuse patient.[facility]In the event this information is protected by the Federal Confidentiality of Alcohol and Drug Abuse Patient Records regulations: The Federal rules restrict any use of the information to criminally investigate or prosecute any alcohol or drug abuse patient.[facility] HospitalIn the event this information is protected by the Federal Confidentiality of Alcohol and Drug Abuse Patient Records regulations: The Federal rules restrict any use of the information to criminally investigate or prosecute any alcohol or drug abuse patient.[facility]In the event this information is protected by the Federal Confidentiality of Alcohol and Drug Abuse Patient Records regulations: The Federal rules restrict any use of the information to criminally investigate or prosecute any alcohol or drug abuse patient.[facility] HospitalIn the event this information is protected by the Federal Confidentiality of Alcohol and Drug Abuse Patient Records regulations: The Federal rules restrict any use of the information to criminally investigate or prosecute any alcohol or drug abuse patient.[facility]In the event this information is protected by the Federal Confidentiality of Alcohol and Drug Abuse Patient Records regulations: The Federal rules restrict any use of the information to criminally investigate or prosecute any alcohol or drug abuse patient.[facility]In the event this information is protected by the Federal Confidentiality of Alcohol and Drug Abuse Patient Records regulations: The Federal rules restrict any use of the information to criminally investigate or prosecute any alcohol or drug abuse patient.[facility] HospitalIn the event this information is protected by the Federal Confidentiality of Alcohol and Drug Abuse Patient Records regulations: The Federal rules restrict any use of the information to criminally investigate or prosecute any alcohol or drug abuse patient.[facility] HospitalIn the event this information is protected by the Federal Confidentiality of Alcohol and Drug Abuse Patient Records regulations: The Federal rules restrict any use of the information to criminally investigate or prosecute any alcohol or drug abuse patient.[facility] HospitalIn the event this information is protected by the Federal Confidentiality of Alcohol and Drug Abuse Patient Records regulations: The Federal rules restrict any use of the information to criminally investigate or prosecute any alcohol or drug abuse patient.[facility] HospitalIn the event this information is protected by the Federal Confidentiality of Alcohol and Drug Abuse Patient Records regulations: The Federal rules restrict any use of the information to criminally investigate or prosecute any alcohol or drug abuse patient.[facility]In the event this information is protected by the Federal Confidentiality of Alcohol and Drug Abuse Patient Records regulations: The Federal rules restrict any use of the information to criminally investigate or prosecute any alcohol or drug abuse patient.[facility] HospitalIn the event this information is protected by the Federal Confidentiality of Alcohol and Drug Abuse Patient Records regulations: The Federal rules restrict any use of the information to criminally investigate or prosecute any alcohol or drug abuse patient.[facility] HospitalIn the event this information is protected by the Federal Confidentiality of Alcohol and Drug Abuse Patient Records regulations: The Federal rules restrict any use of the information to criminally investigate or prosecute any alcohol or drug abuse patient.[facility]In the event this information is protected by the Federal Confidentiality of Alcohol and Drug Abuse Patient Records regulations: The Federal rules restrict any use of the information to criminally investigate or prosecute any alcohol or drug abuse patient.[facility] HospitalIn the event this information is protected by the Federal Confidentiality of Alcohol and Drug Abuse Patient Records regulations: The Federal rules restrict any use of the information to criminally investigate or prosecute any alcohol or drug abuse patient.[facility]In the event this information is protected by the Federal Confidentiality of Alcohol and Drug Abuse Patient Records regulations: The Federal rules restrict any use of the information to criminally investigate or prosecute any alcohol or drug abuse patient.[facility]In the event this information is protected by the Federal Confidentiality of Alcohol and Drug Abuse Patient Records regulations: The Federal rules restrict any use of the information to criminally investigate or prosecute any alcohol or drug abuse patient.[facility] HospitalIn the event this information is protected by the Federal Confidentiality of Alcohol and Drug Abuse Patient Records regulations: The Federal rules restrict any use of the information to criminally investigate or prosecute any alcohol or drug abuse patient.[facility] HospitalIn the event this information is protected by the Federal Confidentiality of Alcohol and Drug Abuse Patient Records regulations: The Federal rules restrict any use of the information to criminally investigate or prosecute any alcohol or drug abuse patient.[facility]In the event this information is protected by the Federal Confidentiality of Alcohol and Drug Abuse Patient Records regulations: The Federal rules restrict any use of the information to criminally investigate or prosecute any alcohol or drug abuse patient.[facility]In the event this information is protected by the Federal Confidentiality of Alcohol and Drug Abuse Patient Records regulations: The Federal rules restrict any use of the information to criminally investigate or prosecute any alcohol or drug abuse patient.[facility]In the event this information is protected by the Federal Confidentiality of Alcohol and Drug Abuse Patient Records regulations: The Federal rules restrict any use of the information to criminally investigate or prosecute any alcohol or drug abuse patient.[facility] HospitalIn the event this information is protected by the Federal Confidentiality of Alcohol and Drug Abuse Patient Records regulations: The Federal rules restrict any use of the information to criminally investigate or prosecute any alcohol or drug abuse patient.[facility] HospitalIn the event this information is protected by the Federal Confidentiality of Alcohol and Drug Abuse Patient Records regulations: The Federal rules restrict any use of the information to criminally investigate or prosecute any alcohol or drug abuse patient.[facility] HospitalIn the event this information is protected by the Federal Confidentiality of Alcohol and Drug Abuse Patient Records regulations: The Federal rules restrict any use of the information to criminally investigate or prosecute any alcohol or drug abuse patient.[facility] HospitalIn the event this information is protected by the Federal Confidentiality of Alcohol and Drug Abuse Patient Records regulations: The Federal rules restrict any use of the information to criminally investigate or prosecute any alcohol or drug abuse patient.[facility]In the event this information is protected by the Federal Confidentiality of Alcohol and Drug Abuse Patient Records regulations: The Federal rules restrict any use of the information to criminally investigate or prosecute any alcohol or drug abuse patient.[facility]In the event this information is protected by the Federal Confidentiality of Alcohol and Drug Abuse Patient Records regulations: The Federal rules restrict any use of the information to criminally investigate or prosecute any alcohol or drug abuse patient.[facility] HospitalIn the event this information is protected by the Federal Confidentiality of Alcohol and Drug Abuse Patient Records regulations: The Federal rules restrict any use of the information to criminally investigate or prosecute any alcohol or drug abuse patient.[facility] HospitalIn the event this information is protected by the Federal Confidentiality of Alcohol and Drug Abuse Patient Records regulations: The Federal rules restrict any use of the information to criminally investigate or prosecute any alcohol or drug abuse patient.[facility] HospitalIn the event this information is protected by the Federal Confidentiality of Alcohol and Drug Abuse Patient Records regulations: The Federal rules restrict any use of the information to criminally investigate or prosecute any alcohol or drug abuse patient.[facility] HospitalIn the event this information is protected by the Federal Confidentiality of Alcohol and Drug Abuse Patient Records regulations: The Federal rules restrict any use of the information to criminally investigate or prosecute any alcohol or drug abuse patient.[facility] HospitalIn the event this information is protected by the Federal Confidentiality of Alcohol and Drug Abuse Patient Records regulations: The Federal rules restrict any use of the information to criminally investigate or prosecute any alcohol or drug abuse patient.[facility] HospitalIn the event this information is protected by the Federal Confidentiality of Alcohol and Drug Abuse Patient Records regulations: The Federal rules restrict any use of the information to criminally investigate or prosecute any alcohol or drug abuse patient.[facility]In the event this information is protected by the Federal Confidentiality of Alcohol and Drug Abuse Patient Records regulations: The Federal rules restrict any use of the information to criminally investigate or prosecute any alcohol or drug abuse patient.[facility] HospitalIn the event this information is protected by the Federal Confidentiality of Alcohol and Drug Abuse Patient Records regulations: The Federal rules restrict any use of the information to criminally investigate or prosecute any alcohol or drug abuse patient.[facility] HospitalIn the event this information is protected by the Federal Confidentiality of Alcohol and Drug Abuse Patient Records regulations: The Federal rules restrict any use of the information to criminally investigate or prosecute any alcohol or drug abuse patient.[facility]In the event this information is protected by the Federal Confidentiality of Alcohol and Drug Abuse Patient Records regulations: The Federal rules restrict any use of the information to criminally investigate or prosecute any alcohol or drug abuse patient.[facility]In the event this information is protected by the Federal Confidentiality of Alcohol and Drug Abuse Patient Records regulations: The Federal rules restrict any use of the information to criminally investigate or prosecute any alcohol or drug abuse patient.[facility] HospitalIn the event this information is protected by the Federal Confidentiality of Alcohol and Drug Abuse Patient Records regulations: The Federal rules restrict any use of the information to criminally investigate or prosecute any alcohol or drug abuse patient.[facility]In the event this information is protected by the Federal Confidentiality of Alcohol and Drug Abuse Patient Records regulations: The Federal rules restrict any use of the information to criminally investigate or prosecute any alcohol or drug abuse patient.[facility]In the event this information is protected by the Federal Confidentiality of Alcohol and Drug Abuse Patient Records regulations: The Federal rules restrict any use of the information to criminally investigate or prosecute any alcohol or drug abuse patient.[facility] HospitalIn the event this information is protected by the Federal Confidentiality of Alcohol and Drug Abuse Patient Records regulations: The Federal rules restrict any use of the information to criminally investigate or prosecute any alcohol or drug abuse patient.[facility]In the event this information is protected by the Federal Confidentiality of Alcohol and Drug Abuse Patient Records regulations: The Federal rules restrict any use of the information to criminally investigate or prosecute any alcohol or drug abuse patient.[facility] HospitalIn the event this information is protected by the Federal Confidentiality of Alcohol and Drug Abuse Patient Records regulations: The Federal rules restrict any use of the information to criminally investigate or prosecute any alcohol or drug abuse patient.[facility] HospitalIn the event this information is protected by the Federal Confidentiality of Alcohol and Drug Abuse Patient Records regulations: The Federal rules restrict any use of the information to criminally investigate or prosecute any alcohol or drug abuse patient.[facility] HospitalIn the event this information is protected by the Federal Confidentiality of Alcohol and Drug Abuse Patient Records regulations: The Federal rules restrict any use of the information to criminally investigate or prosecute any alcohol or drug abuse patient.[facility]In the event this information is protected by the Federal Confidentiality of Alcohol and Drug Abuse Patient Records regulations: The Federal rules restrict any use of the information to criminally investigate or prosecute any alcohol or drug abuse patient.[facility]In the event this information is protected by the Federal Confidentiality of Alcohol and Drug Abuse Patient Records regulations: The Federal rules restrict any use of the information to criminally investigate or prosecute any alcohol or drug abuse patient.[facility]In the event this information is protected by the Federal Confidentiality of Alcohol and Drug Abuse Patient Records regulations: The Federal rules restrict any use of the information to criminally investigate or prosecute any alcohol or drug abuse patient.[facility] HospitalIn the event this information is protected by the Federal Confidentiality of Alcohol and Drug Abuse Patient Records regulations: The Federal rules restrict any use of the information to criminally investigate or prosecute any alcohol or drug abuse patient.[facility] HospitalIn the event this information is protected by the Federal Confidentiality of Alcohol and Drug Abuse Patient Records regulations: The Federal rules restrict any use of the information to criminally investigate or prosecute any alcohol or drug abuse patient.[facility]In the event this information is protected by the Federal Confidentiality of Alcohol and Drug Abuse Patient Records regulations: The Federal rules restrict any use of the information to criminally investigate or prosecute any alcohol or drug abuse patient.[facility] HospitalIn the event this information is protected by the Federal Confidentiality of Alcohol and Drug Abuse Patient Records regulations: The Federal rules restrict any use of the information to criminally investigate or prosecute any alcohol or drug abuse patient.[facility]In the event this information is protected by the Federal Confidentiality of Alcohol and Drug Abuse Patient Records regulations: The Federal rules restrict any use of the information to criminally investigate or prosecute any alcohol or drug abuse patient.[facility]In the event this information is protected by the Federal Confidentiality of Alcohol and Drug Abuse Patient Records regulations: The Federal rules restrict any use of the information to criminally investigate or prosecute any alcohol or drug abuse patient.[facility]In the event this information is protected by the Federal Confidentiality of Alcohol and Drug Abuse Patient Records regulations: The Federal rules restrict any use of the information to criminally investigate or prosecute any alcohol or drug abuse patient.[facility]In the event this information is protected by the Federal Confidentiality of Alcohol and Drug Abuse Patient Records regulations: The Federal rules restrict any use of the information to criminally investigate or prosecute any alcohol or drug abuse patient.[facility] HospitalIn the event this information is protected by the Federal Confidentiality of Alcohol and Drug Abuse Patient Records regulations: The Federal rules restrict any use of the information to criminally investigate or prosecute any alcohol or drug abuse patient.[facility] HospitalIn the event this information is protected by the Federal Confidentiality of Alcohol and Drug Abuse Patient Records regulations: The Federal rules restrict any use of the information to criminally investigate or prosecute any alcohol or drug abuse patient.[facility]In the event this information is protected by the Federal Confidentiality of Alcohol and Drug Abuse Patient Records regulations: The Federal rules restrict any use of the information to criminally investigate or prosecute any alcohol or drug abuse patient.[facility]In the event this information is protected by the Federal Confidentiality of Alcohol and Drug Abuse Patient Records regulations: The Federal rules restrict any use of the information to criminally investigate or prosecute any alcohol or drug abuse patient.[facility] HospitalIn the event this information is protected by the Federal Confidentiality of Alcohol and Drug Abuse Patient Records regulations: The Federal rules restrict any use of the information to criminally investigate or prosecute any alcohol or drug abuse patient.[facility]In the event this information is protected by the Federal Confidentiality of Alcohol and Drug Abuse Patient Records regulations: The Federal rules restrict any use of the information to criminally investigate or prosecute any alcohol or drug abuse patient.[facility]In the event this information is protected by the Federal Confidentiality of Alcohol and Drug Abuse Patient Records regulations: The Federal rules restrict any use of the information to criminally investigate or prosecute any alcohol or drug abuse patient.[facility] HospitalIn the event this information is protected by the Federal Confidentiality of Alcohol and Drug Abuse Patient Records regulations: The Federal rules restrict any use of the information to criminally investigate or prosecute any alcohol or drug abuse patient.[facility] HospitalIn the event this information is protected by the Federal Confidentiality of Alcohol and Drug Abuse Patient Records regulations: The Federal rules restrict any use of the information to criminally investigate or prosecute any alcohol or drug abuse patient.[facility] HospitalIn the event this information is protected by the Federal Confidentiality of Alcohol and Drug Abuse Patient Records regulations: The Federal rules restrict any use of the information to criminally investigate or prosecute any alcohol or drug abuse patient.[facility] HospitalIn the event this information is protected by the Federal Confidentiality of Alcohol and Drug Abuse Patient Records regulations: The Federal rules restrict any use of the information to criminally investigate or prosecute any alcohol or drug abuse patient.[facility] HospitalIn the event this information is protected by the Federal Confidentiality of Alcohol and Drug Abuse Patient Records regulations: The Federal rules restrict any use of the information to criminally investigate or prosecute any alcohol or drug abuse patient.[facility] [place] [facility] HospitalIn the event this information is protected by the Federal Confidentiality of Alcohol and Drug Abuse Patient Records regulations: The Federal rules restrict any use of the information to criminally investigate or prosecute any alcohol or drug abuse patient.[facility] [place] [facility] HospitalIn the event this information is protected by the Federal Confidentiality of Alcohol and Drug Abuse Patient Records regulations: The Federal rules restrict any use of the information to criminally investigate or prosecute any alcohol or drug abuse patient.[facility] [place] [facility] HospitalIn the event this information is protected by the Federal Confidentiality of Alcohol and Drug Abuse Patient Records regulations: The Federal rules restrict any use of the information to criminally investigate or prosecute any alcohol or drug abuse patient.[facility] [place] [facility] HospitalIn the event this information is protected by the Federal Confidentiality of Alcohol and Drug Abuse Patient Records regulations: The Federal rules restrict any use of the information to criminally investigate or prosecute any alcohol or drug abuse patient.[facility] [place] [facility] HospitalIn the event this information is protected by the Federal Confidentiality of Alcohol and Drug Abuse Patient Records regulations: The Federal rules restrict any use of the information to criminally investigate or prosecute any alcohol or drug abuse patient.[facility] [place] [facility] HospitalIn the event this information is protected by the Federal Confidentiality of Alcohol and Drug Abuse Patient Records regulations: The Federal rules restrict any use of the information to criminally investigate or prosecute any alcohol or drug abuse patient.[facility] [place] [facility] HospitalIn the event this information is protected by the Federal Confidentiality of Alcohol and Drug Abuse Patient Records regulations: The Federal rules restrict any use of the information to criminally investigate or prosecute any alcohol or drug abuse patient.[facility] [place] [facility] HospitalIn the event this information is protected by the Federal Confidentiality of Alcohol and Drug Abuse Patient Records regulations: The Federal rules restrict any use of the information to criminally investigate or prosecute any alcohol or drug abuse patient.[facility] [place] [facility] HospitalIn the event this information is protected by the Federal Confidentiality of Alcohol and Drug Abuse Patient Records regulations: The Federal rules restrict any use of the information to criminally investigate or prosecute any alcohol or drug abuse patient.[facility] [place] [facility] HospitalIn the event this information is protected by the Federal Confidentiality of Alcohol and Drug Abuse Patient Records regulations: The Federal rules restrict any use of the information to criminally investigate or prosecute any alcohol or drug abuse patient.[facility] [place] [facility] HospitalIn the event this information is protected by the Federal Confidentiality of Alcohol and Drug Abuse Patient Records regulations: The Federal rules restrict any use of the information to criminally investigate or prosecute any alcohol or drug abuse patient.[facility] [place] [facility] HospitalIn the event this information is protected by the Federal Confidentiality of Alcohol and Drug Abuse Patient Records regulations: The Federal rules restrict any use of the information to criminally investigate or prosecute any alcohol or drug abuse patient.[facility] [place] [facility] HospitalIn the event this information is protected by the Federal Confidentiality of Alcohol and Drug Abuse Patient Records regulations: The Federal rules restrict any use of the information to criminally investigate or prosecute any alcohol or drug abuse patient.[facility] [place] [facility] HospitalIn the event this information is protected by the Federal Confidentiality of Alcohol and Drug Abuse Patient Records regulations: The Federal rules restrict any use of the information to criminally investigate or prosecute any alcohol or drug abuse patient.[facility] [place] [facility] HospitalIn the event this information is protected by the Federal Confidentiality of Alcohol and Drug Abuse Patient Records regulations: The Federal rules restrict any use of the information to criminally investigate or prosecute any alcohol or drug abuse patient.[facility] [place] [facility] HospitalIn the event this information is protected by the Federal Confidentiality of Alcohol and Drug Abuse Patient Records regulations: The Federal rules restrict any use of the information to criminally investigate or prosecute any alcohol or drug abuse patient.[facility] [place] [facility] HospitalIn the event this information is protected by the Federal Confidentiality of Alcohol and Drug Abuse Patient Records regulations: The Federal rules restrict any use of the information to criminally investigate or prosecute any alcohol or drug abuse patient.[facility] [place] [facility] HospitalIn the event this information is protected by the Federal Confidentiality of Alcohol and Drug Abuse Patient Records regulations: The Federal rules restrict any use of the information to criminally investigate or prosecute any alcohol or drug abuse patient.[facility] [place] [facility] HospitalIn the event this information is protected by the Federal Confidentiality of Alcohol and Drug Abuse Patient Records regulations: The Federal rules restrict any use of the information to criminally investigate or prosecute any alcohol or drug abuse patient.[facility] Reason for Visit (unrecogniz ed section [...] HEMORRHAGIC STROKE Veronica Velez MD [address] [place] [address] [facility] [address] [place] [address] Referral ID Status Reason Start Date Expiration Date Visits Re quested Visits Authorized [id number] 1 1 Reason Onset Date Comments Nurse [...] with the patie nt Reason Comments Recheck [facility] ER follow up, ab dominal pain Reason Comments New Patient Consult for numbness to right anterior thigh since Feb, Specialty Diagnoses / Procedures Referred By Aubree lubin Referred To Contact [facility] Diagnoses Numbness of anterior thigh Anemia, unspecified type Procedures CONSULT TO NEUROLOGY OFFICE/OUTPATIENT [facility] MDM 60-74 MINUTES Maryam Franco MD [address] [place] [address] [facility] [place] [address] [place] [address] Referral ID Status Reason Start Date Expiration Date Visits Requested Visits Authorized [id number] Pending Review PCP Requested Referral 03/03/2022 03/03/2023 1 1 Reason Onset Date Comments Refill Request 05/15/2022 Reason Comments Appointment Needs rescheduled Reason Onset Date Comments Refill Request 08/18/2022 Reason Comments Hospital F/U [facility] 06/29/23 then wa s transferred to [facility] and then [place] for about 2 weeks Tube Feeding Assessment [...] follow up, CHF, Pneumonia, COPD Reason Comments [facility] HH PT POC Reason Onset Date Comments Refill Request 10/19/2022 Reason Comments Request Medication List Reason Comments [facility] Update Reason Comments Recheck 2 week Reason Comments Speech Therapy Forms Reason Comments Medication Update Reason Comments Care Home Plan of Care Reason Comments Recheck [facility] Hosp follow up Reason Onset Date Comments [...] [facility] discharge 08/10/23 Reason Comments [place] [facility] ; fall Reason Onset Date Comments Refill Request 08/19/2023 Reason Onset Date Comments Refill Request 09/13/2023 Reason Onset Date Comments Refill Request 09/21/2023 Missed Appointment 09/21/2023 Reason Comments Follow Up Recent fall with sub dural hematoma Reason Onset Date Comments Refill Request 09/27/2023 Specialty Diagnoses / Procedures Referred By Aubree lubin Referred To Contact Diagnoses seizures, hypercapnic Procedures .. Charlene Henderson MD [address] [facility]. [address] [place] [address] [address] [place] [address] Referral ID Status Reason Start Date Expiration Date Visits Re quested Visits Authorized [id number] 1 1 Reason Onset Date Comments Refill Request 09/29/2023 Reason Onset Date Comments Refill Request 11/02/2023 Reason Onset Date Comments Population Health Navigation Outreach 11/23/2023 [place] AWV/HCC and care gaps Reason Onset Date [...] (HCC) Procedures CONSULT TO GENERAL SURGERY OFFICE/OUTPATIENT [facility] 60 MINUTES Issa Herman MD [address] [place] [address] Referral ID Status Reason Start Date Expiration Date V isits Requested Visits Authorized [id number] Closed PCP Requested Referral 12/02/2023 12/01/2024 1 1 Reason Onset Date Comments Refill Request 12/24/2023 Reason Comments Switch rx to different pharmacy Reason Onset Date Comments Refill Request 12/29/2023 Reason Comments 4 week follow-up Reason Comments [facility] Reason Onset Date Comments Refill Request 01/19/2024 Reason Onset Date Comments Population Health Navigation Outreach 01/24/2024 Arlet Barba PCSA Reason Onset Date Comments Refill Request 01/25/2024 Reason Comments [facility] nurse calling to set up home heal Reason Comments Seizures Pt sent from [facility] for evaluation of seizures. Per transport, [...] Referred To Contact Diagnoses Status epilepticus (CMS/HCC) ([facility]) seizures Procedures .. Alayna Gaxiola MD [address] [address] [address] [place] [id number] Referral ID Status Reason Start Date Expiration Date Visits Re quested Visits Authorized [id number] 1 1 Reason Onset Date Comments Refill Request 02/15/2024 Reason Comments [facility] Reason Comments Cough X1 [...] Care Teams (unrecognized sec tion and content) Nylon Hot Wire Cutter Relationship Specialty Start Date End Date Maryam Franco MD [address] [place] [address] PCP - General Internal Medicine 12/09/20 Nylon Hot Wire Cutter Relationship Specialty Start Date End Date Maryam Franco MD [address] [place] [address] PCP - General Internal Medicine 12/09/20 Nylon Hot Wire Cutter Relationship Specialty Start Date End Date Maryam Franco MD [address] [place] [address] PCP - General Internal Medicine 12/09/20 Nylon Hot Wire Cutter Relationship Specialty Start Date End Date Maryam Franco MD [address] [place] [address] PCP - General Internal Medicine 12/09/20 Nylon Hot Wire Cutter Relationship Specialty Start Date End Date Maryam Franco MD [address] [place] [address] PCP - General Internal Medicine 12/09/20 Nylon Hot Wire Cutter Relationship Specialty Start Date End Date Maryam Franco MD [address] [place] [address] PCP - General Internal Medicine 12/09/20 Nylon Hot Wire Cutter Relationship Specialty Start Date End Date Maryam Franco MD [address] [facility] [address] PCP - General Internal Medicine 12/09/20 Nylon Hot Wire Cutter Relationship Specialty Start Date End Date Maryam Franco MD [address] [place] [address] PCP - General Internal Medicine 12/09/20 Nylon Hot Wire Cutter Relationship Specialty Start Date End Date Maryam Franco MD [address] [place] [address] PCP - General Internal Medicine 06/15/21 Nylon Hot Wire Cutter Relationship Specialty Start Date End Date Maryam Franco MD [address] [place] [address] PCP - General Internal Medicine 12/09/20 Nylon Hot Wire Cutter Relationship Specialty Start Date End Date Maryam Franco MD [address] [facility] [place] [address] PCP - General Internal Medicine 12/09/20 Nylon Hot Wire Cutter Relationship Specialty Start Date End Date Maryam Franco MD [address] [place] [address] PCP - General Internal Medicine 12/09/20 Nylon Hot Wire Cutter Relationship Specialty Start Date End Date Maryam Franco MD [address] [place] [address] PCP - General Internal Medicine 12/09/20 Nylon Hot Wire Cutter Relationship Specialty Start Date End Date Maryam Franco MD [address] [facility] [place] [address] PCP - General Internal Medicine 12/09/20 Nylon Hot Wire Cutter Relationship Specialty Start Date End Date Maryam Franco MD [address] [place] [address] PCP - General Internal Medicine 12/09/20 Nylon Hot Wire Cutter Relationship Specialty Start Date End Date Maryam Franco MD [address] [facility] [address] PCP - General Internal Medicine 12/09/20 Nylon Hot Wire Cutter Relationship Specialty Start Date End Date Maryam Franco MD [address] [place] [address] PCP - General Internal Medicine 12/09/20 Nylon Hot Wire Cutter Relationship Specialty Start Date End Date Maryam rFanco MD [address] [place] [address] PCP - General Internal Medicine 12/09/20 Nylon Hot Wire Cutter Relationship Specialty Start Date End Date Maryam Franco MD [address] [place] [address] PCP - General Internal Medicine 12/09/20 Nylon Hot Wire Cutter Relationship Specialty Start Date End Date Maryam Franco MD [address] [facility] [address] PCP - General Internal Medicine 12/09/20 Nylon Hot Wire Cutter Relationship Specialty Start Date End Date Maryam Franco MD [address] [place] [address] PCP - General Internal Medicine 12/09/20 Nylon Hot Wire Cutter Relationship Specialty Start Date End Date Maryam Franco MD [address] [place] [address] PCP - General Internal Medicine 12/09/20 Nylon Hot Wire Cutter Relationship Specialty Start Date End Date Maryam Franco MD [address] [place] [address] PCP - General Internal Medicine 12/09/20 Nylon Hot Wire Cutter Relationship Specialty Start Date End Date Maryam Franco MD [address] [place] [address] PCP - General Internal Medicine 12/09/20 Nylon Hot Wire Cutter Relationship Specialty Start Date End Date Maryam Franco MD [address] [place] [address] PCP - General Internal Medicine 12/09/20 Nylon Hot Wire Cutter Relationship Specialty Start Date End Date Maryam Franco MD [address] [place] [address] PCP - General Internal Medicine 12/09/20 Nylon Hot Wire Cutter Relationship Specialty Start Date End Date Maryam Franco MD [address] [place] [address] PCP - General Internal Medicine 12/09/20 Nylon Hot Wire Cutter Relationship Specialty Start Date End Date Maryam Franco MD [address] [place] [address] PCP - General Internal Medicine 12/09/20 Nylon Hot Wire Cutter Relationship Specialty Start Date End Date Maryam Franco MD [address] [place] [address] PCP - General Internal Medicine 12/09/20 Nylon Hot Wire Cutter Relationship Specialty Start Date End Date Maryam Franco MD [address] [place] [address] PCP - General Internal Medicine 12/09/20 Nylon Hot Wire Cutter Relationship Specialty Start Date End Date Maryam Franco MD [address] [place] [address] PCP - General Internal Medicine 12/09/20 Nylon Hot Wire Cutter Relationship Specialty Start Date End Date Maryam Franco MD [address] [place] [address] PCP - General Internal Medicine 12/09/20 Nylon Hot Wire Cutter Relationship Specialty Start Date End Date Maryam Franco MD [address] [place] [address] PCP - General Internal Medicine 12/09/20 Nylon Hot Wire Cutter Relationship Specialty Start Date End Date Maryam Franco MD [address] [place] [address] PCP - General Internal Medicine 12/09/20 Nylon Hot Wire Cutter Relationship Specialty Start Date End Date Maryam Frnaco MD [address] [place] [address] PCP - General Internal Medicine 12/09/20 Nylon Hot Wire Cutter Relationship Specialty Start Date End Date Maryam Franco MD [address] [place] [address] PCP - General Internal Medicine 12/09/20 Nylon Hot Wire Cutter Relationship Specialty Start Date End Date Maryam Franco MD [address] [place] [address] PCP - General Internal Medicine 12/09/20 Nylon Hot Wire Cutter Relationship Specialty Start Date End Date Maryam Franco MD [address] [place] [address] PCP - General Internal Medicine 12/09/20 Nylon Hot Wire Cutter Relationship Specialty Start Date End Date Maryam Franco MD [address] [place] [address] PCP - General Internal Medicine 12/09/20 Seth Chawla RPh [address] [place] [address] Transitional Care Pharmacist Pharmacy 08/11/23 09/09/23 Facundo Rowe, printer apprentice Radiation Control Technician 08/11/23 Nylon Hot Wire Cutter Relationship Specialty Start Date End Date Maryam Franco MD [address] [place] [address] PCP - General Internal Medicine 12/09/20 Seth Chawla shan [address] [place] [address] Transitional Care Pharmacist Pharmacy 08/11/23 09/09/23 Facundo Rowe printer apprentice Radiation Control Technician 08/11/23 Nylon Hot Wire Cutter Relationship Specialty Start Date End Date Maryam Franco MD [address] [place] [address] PCP - General Internal Medicine 12/09/20 [facility] [address] [place] [address] Transitional Care Pharmacist Pharmacy 08/11/23 09/09/23 Facundo Rowe RN Primary Care Radiation Control Technician 08/11/23 Nylon Hot Wire Cutter Relationship Specialty Start Date End Date Maryam Franco MD [address] [place] [address] PCP - General Internal Medicine 12/09/20 [facility] [address] [place] [address] Transitional Care Pharmacist Pharmacy 08/11/23 09/09/23 Facundo Rowe RN Primary Care Radiation Control Technician 08/11/23 Nylon Hot Wire Cutter Relationship Specialty Start Date End Date Maryam Franco MD [address] [place] [address] PCP - General Internal Medicine 12/09/20 Nylon Hot Wire Cutter Relationship Specialty Start Date End Date Maryam Franco MD [address] [place] [address] PCP - General Internal Medicine 12/09/20 Nylon Hot Wire Cutter Relationship Specialty Start Date End Date Maryam Franco MD [address] [place] [address] PCP - General Internal Medicine 12/09/20 Nylon Hot Wire Cutter Relationship Specialty Start Date End Date Maryam Franco MD [address] [place] [address] PCP - General Internal Medicine 12/09/20 Nylon Hot Wire Cutter Relationship Specialty Start Date End Date Joy Stahl [address] [place] [address] PCP - General 02/10/17 Nylon Hot Wire Cutter Relationship Specialty Start Date End Date Maryam Franco MD [address] [place] [address] PCP - General Internal Medicine 12/09/20 Nylon Hot Wire Cutter Relationship Specialty Start Date End Date Maryam Franco MD [address] [place] [address] PCP - General Internal Medicine 12/09/20 Nylon Hot Wire Cutter Relationship Specialty Start Date End Date Maryam Franco MD [address] [place] [address] PCP - General Internal Medicine 12/09/20 Nylon Hot Wire Cutter Relationship Specialty Start Date End Date Maryam Franco MD [address] [place] [address] PCP - General Internal Medicine 12/09/20 Nylon Hot Wire Cutter Relationship Specialty Start Date End Date Maryam Farnco MD [address] [place] [address] PCP - General Internal Medicine 12/09/20 Nylon Hot Wire Cutter Relationship Specialty Start Date End Date Maryam Franco MD [address] [place] [address] PCP - General Internal Medicine 12/09/20 Nylon Hot Wire Cutter Relationship Specialty Start Date End Date Maryam Franco MD [address] [place] [address] PCP - General Internal Medicine 12/09/20 Nylon Hot Wire Cutter Relationship Specialty Start Date End Date Maryam Franco MD [address] [place] [address] PCP - General Internal Medicine 12/09/20 Nylon Hot Wire Cutter Relationship Specialty Start Date End Date Maryam Franco MD [address] [place] [address] PCP - General Internal Medicine 12/09/20 Nylon Hot Wire Cutter Relationship Specialty Start Date End Date Maryam Franco MD [address] [place] [address] PCP - General Internal Medicine 12/09/20 Nylon Hot Wire Cutter Relationship Specialty Start Date End Date Maryam Franco MD [address] [place] [address] PCP - General Internal Medicine 12/09/20 Nylon Hot Wire Cutter Relationship Specialty Start Date End Date ZekeJoy murray [address] [place] [address] PCP - General 02/10/17 02/01/24 Maryam Franco MD [address] [place] [address] PCP - General Internal Medicine 02/02/24 Nylon Hot Wire Cutter Relationship Specialty Start Date End Date Maryam Franco MD [address] [place] [address] PCP - General Internal Medicine 12/09/20 Nylon Hot Wire Cutter Relationship Specialty Start Date End Date Maryam Franco MD [address] [place] [address] PCP - General Internal Medicine 12/09/20 Nylon Hot Wire Cutter Relationship Specialty Start Date End Date Maryam Franco MD [address] [place] [address] PCP - General Internal Medicine 12/09/20 Nylon Hot Wire Cutter Relationship Specialty Start Date End Date Maryam Franco MD [address] [place] [address] PCP - General Internal Medicine 12/09/20 Nylon Hot Wire Cutter Relationship Specialty Start Date End Date Maryam Franco MD [address] [place] [address] PCP - General Internal Medicine 12/09/20 Nylon Hot Wire Cutter Relationship Specialty Start Date End Date Maryam Franco MD [address] [place] [address] PCP - General Internal Medicine 12/09/20 Nylon Hot Wire Cutter Relationship Specialty Start Date End Date Maryam Franco MD [address] [place] [address] PCP - General Internal Medicine 12/09/20 Nylon Hot Wire Cutter Relationship Specialty Start Date End Date Maryam Franco MD [address] [place] [address] PCP - General Internal Medicine 12/09/20 Nylon Hot Wire Cutter Relationship Specialty Start Date End Date Maryam Franco MD [address] [place] [address] PCP - General Internal Medicine 12/09/20 Nylon Hot Wire Cutter Relationship Specialty Start Date End Date Maryam Franco MD [address] [place] [address] PCP - General Internal Medicine 12/09/20 Scheduled Active and Recently Administ ered Medications (unrecognized section and content) Medication Order 01/25/2022 01/26/2022 01/27/2022 budesonide-glycopyrrol ate-Formoterol (BREZTRI) 160-9-4.8 MCG/ACT inhaler 1 puff 1 puff, Inhalation, 2 TIMES DAILY, First dose on Wed01/09/22 at 1700, Until Discontinued 1126 (Given - Provider: Elda Neville RCP - Comment: rt not available)222 (Given - Provider: Jackie Allison, RT) 0837 (Given - Provider: Elysia Meyers RCP)220 (Given - Provider: Jackie Allison, RT) 0934 [...] RN) 0933 (See Alternative - Provider: Kaylen Payton, FINESSE) Vital AF 1.2 Kelvin LIQD 90 mL/hr, [...] Anxiety 0506 (Given - Provider: Courtney Mcneil, FINESSE)1212 (Given - Provider: Sinai Dan, FINESSE)2006 (Given - Provider: Cheo Miguel RN) 1052 (Given - Provider: Huong Patino, FINESSE) 0456 (Given - Provider: Anayeli Oneill, FINESSE)1649 (Given - Provider: Kaylen Payton RN) labetalol [...] at 0132, Until Wed01/27/22 at 190, Moderate Pain, May also be crushed and added to water for patient unable to tolerate oral tab. 0506 (Given - Provider: Courtney Mcneil RN)131 (Given - Provider: Sinai Dan RN)2005 (Given - Provider: Cheo Miguel RN) 625 (Given - Provider: Cheo Miguel RN)1624 (Given - Provider: Klaudia Osborn RN)2204 (Given - Provider: Anayeli Oneill RN) 0456 (Given - Provider: Anayeli Oneill RN)0931 (Given - Provider: Kaylen Payton, FINESSE)1333 (Given - Provider: Kaylen Payton RN) oxyCODONE (ROXICODONE) tablet 5 mg(Linked Group 8) 5 mg, Per NG tube, EVERY 4 HOURS NEEDED, Starting on Wed01/09/22 at 0132, Until Wed01/27/22 at 1901, Moderate Pain, May be crushed and added to water for administration via NG tube. 0506 (See Alternative - Provider: Courtney Mcneil RN)1319 (See Alternative - Provider: Sinai Dan RN)2005 (See Alternative - Provider: Cheo Miguel RN) 06 (See Alternative - Provider: Cheo Miguel RN)1624 (See Alternative - Provider: Klaudia Osborn RN)2204 (See Alternative - Provider: Anayeli Oneill RN) 0456 (See Alternative - Provider: Anayeli Oneill RN)0931 (See Alternative - Provider: Kaylen Payton, FINESSE)1333 (See Alternative - Provider: Kaylen Payton RN) [...] 1901, Sleep 2005 (Given - Provider: Cheo Miguel RN) 2203 (Given - Provider: Anayeli Oneill RN) [...] glucose is greater than 200mg/dl, then notify Medical Science Liaison. And BLOOD GLUCOSE (POC DEVICE) UDPRN (CANCELED) [...] at 0133, Until Specified
Who to Notify: Medical Science Liaison
For all Blood Glucose LESS THAN 80 mg/dl, notify Medical Science Liaison after treatment per Hypoglycemia in Non- Adults [...] 2115 (Given - Provider: Francesca Forrest, RN) 2054 (Given - Provider: Steven Estrada, RN) budesonide (Pulmicort) 0.5 MG/2ML nebulizer solution 0.5 mg 0.5 mg, Nebulization, Daily, First dose on 09/26/23 at 1715, Rinse mouth with water after use to reduce aftertaste and incidence of candidiasis. Do not swallow. 0748 (Given - Provider: Camilo Moreno RCP) 0843 (Given - Provider: Norris Bella RCP) 0753 (Given - Provider: Norris Bella RCP) cholecalciferol (Vitamin D-3) tablet 1,000 Units 1,000 Units, Oral, Daily, First dose on [facility] 10/09/23 at 1200 0855 (Given - Provider: Yanet Maldonado RN) 0816 (Given - Provider: Mari Robertson RN) 0901 (Given - Provider: Trinity Salinas) DULoxetine (Cymbalta) DR capsule 60 mg 60 mg, Oral, Daily, First dose on Wed09/26/23 at 1530, Do not crush or chew., , On hold since Sara 10/07/2023 at 1335 until manually unheld 0800 (Dose Auto Held - Provider: AUNG Starkey CNP) 0800 (Dose Auto Held - Provider: AUNG Starkey CNP) 0800 (Dose Auto Held - Provider: AUNG Starkey CNP)1848 (Unheld by provider - Provider: Automatic Discharge Provider) enoxaparin (Lovenox) syringe 40 mg 40 mg, SubCUTAneous, Every 24 hours scheduled (Daily), First dose on Wed09/26/23 at 1530, Indication of Use: Prophylaxis-DVT/PE, Indications: [...] at 0800 0855 (Given - Provider: Yanet Maldonado, FINESSE) 0815 (Given - Provider: Mari Robertson RN) [...] at 2100 2100 (Given - Provider: Francesca Forrest, FINESSE) 2057 (Given - Provider: Steven Estrada RN) [...] Bessie Wade RCP)0843 (Given - Provider: Norris Bella RCP)1219 (Given - Provider: Norris Bella RCP)1533 (Given - Provider: Norris Bella RCP)2142 (Given - Provider: Alexandria Muniz RRT)2312 (Given - Provider: Alexandria Muniz RRT) 0303 (Given - Provider: Alexandria Muniz RRT)0753 (Given - Provider: Norris Bella RCP)1118 (Given - Provider: Norris Bella RCP)1519 (Given - Provider: Norris Bella RCP) lansoprazole (Prevacid SoluTab) disintegrating tablet 30 [...] daily, First dose (after last modification) on [facility] 10/07/23 at 2100 0856 (Given - Provider: Yanet Maldonado RN)2116 (Given - Provider: Francesca Forrest RN) 0814 (Given - Provider: Mari Robertson, FINESSE)2058 (Given - Provider: Steven Estrada, FINESSE) 0903 (Given - Provider: Trinity Salinas) metoprolol succinate XL (Toprol-XL) 24 hr tablet 25 mg 25 mg, Oral, Daily, First dose on Wed10/10/23 at 0900, Do not crush or chew. 0854 (Given - Provider: Yanet Maldonado RN) 0815 (Given - Provider: Mari Robertson, FINESSE) 0901 (Given - Provider: Trinity Salinas) polyethylene glycol (PEG) 3350 (Miralax) packet 17 g 17 g, Per G Tube, 2 times daily, First dose (after last modification) on [facility] 10/07/23 at 2100, Indications: Constipation 0855 (Given - Provider: Yanet Mladonado RN)2100 (Not Given - Provider: Francesca Forrest RN - Reason: Patient/family refused) 0815 (Given - Provider: Mari Robertson RN)2058 (Given - Provider: Steven Estrada, RN) 09 (Given - Provider: Trinity Salinas) predniSONE (Deltasone) [...] at 2014 0858 (Given - Provider: Yanet Maldonado RN) 0814 [...] 1 mg, Oral, Nightly, First dose on 10/09/23 at 2099 2116 (Given - Provider: Francesca Forrest, FINESSE) 2054 (Given - Provider: Steven Estrada, FINESSE) Senna (Senokot) syrup 10 mL 10 mL, Per G Tube, 2 times daily, First dose (after last modification) on Sara 10/07/23 at 2099 0901 (Given - Provider: Yanet Maldonado, FINESSE)2099 (Not Given - Provider: Francesca Forrest, FINESSE - Reason: Patient/family refused) 0813 (Given - Provider: Mari Robertson RN)2057 (Given - Provider: Steven Estrada RN) 09 (Given - Provider: Trinity E Brad) stomahesive in petrolatum (ET Mix) Topical, Every 8 hours, First dose on Wed10/05/23 at 1245 0445 (Given - Provider: Francesca Forrest RN)1457 (Given - Provider: Yanet Maldonado RN)204 (Given - Provider: Francesca Forrest RN) 0445 [...] unless specifically ordered. 1455 (Given - Provider: Ynaet Maldonado, FINESSE)2115 (Given - Provider: Francesca Forrest RN) 0439 (Given - Provider: Francesca Forrest RN)1408 (Given - Provider: Mari Robertson, FINESSE) 1159 (Given - Provider: Analy Ramirez, FINESSE) hydrOXYzine pamoate (Vistaril) capsule 50 mg 50 mg, Oral, Every 6 hours PRN, anxiety, Starting on Sara 09/30/23 at 1558 0250 (Given - Provider: Francesca Forrest RN)0855 (Given - Provider: Yanet Maldonado, RN)1733 (Given - Provider: Yanet Maldonado RN)2113 (Given - Provider: Francesca Forrest RN) 2055 (Given - Provider: Steven Estrada, RN) 0618 (Given - Provider: Steven Estrada RN) melatonin tablet 5 mg 5 mg, [...] sedation for opioid reversal - MUST notify marketing communications manager provider immediately after first dose, may give IM or SQ if no IV access +++ ondansetron (Zofran) injection 4 mg(Linked Group 2) 4 mg, IntraVENous, Every 6 hours PRN, nausea, vomiting, Starting on Wed09/26/23 at 1509, 1st Line. Give IV if patient is unable to take orally. If inadequate response within 60 minutes, proceed to next-line agent or contact provider if no further options ordered. ondansetron ODT (Zofran-ODT) disintegrating tablet 4 mg(Linked Group 2) 4 mg, Oral, Every 8 hours PRN, nausea, vomiting, Starting on Wed09/26/23 at 1509, 1st Line. If inadequate response [...] Provider: Francesca Forrest RN)0855 (Given - Provider: aYnet Maldonado, FINESSE)1733 (Given - Provider: Yanet Maldonado RN) 1139 (Given - Provider: Mari Robertson, RN)2054 (Given - Provider: Steven Estrada, RN) 0617 (Given - Provider: Steven Estrada, FINESSE) Propylene Glycol-Glycerin (Artificial tears) 1-0.3 % solution [...] 2335 2114 (Given - Provider: Francesca Forrest, FINESSE) 2055 (Given - Provider: Steven Estrada RN) [...] at 0945 0932 (Given - Provider: Alayna Sen, ANTHONY)1236 (Given - Provider: Alayna Sen RRT)2136 (Given - Provider: Leona Rodney, ANTHONY) 0806 (Given - Provider: Camilo Moreno RCP)1314 (Given - Provider: Camilo Moreno RCP)1941 (Given - Provider: Pepe Mckeon, ANTHONY) 0820 (Given - Provider: Camilo Moreno RCP)1400 (Canceled Entry - Provider: Automatic Discharge Provider - Comment: Automatically canceled at discontinue of medication order) DULoxetine (Cymbalta) DR capsule 30 mg 30 mg, Oral, Daily, First dose (after last modification) on 02/05/24 at 0900, Do not crush or chew. 0935 (Given - Provider: Simone Leonardo) 08 (Given - Provider: Char Acuña, FINESSE) 0911 (Given - Provider: Char Acuña RN) enoxaparin (Lovenox) syringe 40 mg 40 mg, SubCUTAneous, Every 24 hours scheduled (Daily), First dose on 01/29/24 at 0900, Indication of Use: Prophylaxis-DVT/PE, Indications: Prophylaxis of Venous Thromboembolism 0936 (Given - Provider: Simone Leonardo) 08 (Given - Provider: Char Acuña RN) 09 (Given - Provider: Char Acuña RN) famotidine (Pepcid) tablet 20 mg 20 mg, Oral, 2 times daily, First dose on 02/06/24 at 2100 0935 (Given - Provider: Simone Leonardo)2049 (Given - Provider: Emily Taylor RN) 08 (Given - Provider: Chra Acuña RN)2215 (Given - Provider: Adrian Sethi [...] Taylor RN) 08 (Given - Provider: Char Acuña, FINESSE)2216 (Given - Provider: Adrian Sethi RN) 0912 (Given - Provider: Char Acuña RN) oxyCODONE (Roxicodone) immediate release tablet 5 mg [...] Simone Leonardo) 0829 (Given - Provider: Char Acuña, FINESSE) 0912 (Given - Provider: Chra Acuña RN) PRN Medication Order 02/11/2024 02/12/2024 [...] Emily Taylor, FINESSE)1710 (Given - Provider: Char Acuña, FINESSE) acetaminophen (Tylenol) suppository 650 mg(Linked Group 2) 650 mg, Rectal, Every 4 hours PRN, mild pain (1-3), Starting on 01/29/24 at 0859, Give CA if unable to administer by mouth or feeding tube. If inadequate response within 60 minutes, proceed to next-line agent for same PRN reason or contact provider if no further options ordered. 0408 (See Alternative - Provider: Bob Cano RN) 0608 (See Alternative - Provider: Emily Taylor, FINESSE)1710 (See Alternative - Provider: Char Acuña, FINESSE) acetaminophen (Tylenol) tablet 650 mg(Linked Group 2) 650 mg, Oral, Every 4 hours PRN, mild pain (1-3), Starting on 01/29/24 at 0859, If inadequate response within 60 minutes, proceed to next-line agent for same PRN reason or contact provider if no further options ordered. 0408 (Given - Provider: Bob Gammell, RN) 0608 (Given - Provider: Emily Taylor, RN - Comment: armband does not scan)1710 (See Alternative - Provider: Char Acuña, FINESSE) alteplase (Cathflo Activase) 2 mg in sterile [...] 1441 2333 (Given - Provider: Emily Taylor, RN) 0035 (Given - Provider: Adrian Sethi, [...] 30 mg, Oral, Daily, First dose on 02/06/24 at 0900, For 2 doses Followed by predniSONE (Deltasone) tablet 20 mg (COMPLETED) 20 mg, Oral, Daily, First dose on Tu02/08/24 at 0900, For 2 doses Followed by [...] (1-3), Starting on 01/29/24 at 0859, Give CA if unable to administer by mouth or feeding tube. If inadequate response within 60 minutes, proceed to next-line agent for same PRN reason or contact provider if no further options ordered. Care Team (unrecognized sect ion and content) Care Team Personnel Name: JOY STAHL MD Member Role: Primary Care Physician Address: Address: [address] [place], [place] [address] Care Team Related Persons Name: DEX PATRICIA [...] BE BASED ON THE PRIMARY CLINICAL RECORDS. [facility] [employer] [facility] provides no warranty or guarantee of the accuracy or completeness of information in this document.
[2024-04-29 12:15] LABS: VBG TCO2 > 50 mmol/L (23-33)
[2024-04-29] MEDS: Cefdinir 300 MG Capsule PO ×2 (14:31→20:06)
[2024-04-29] MEDS: hydrOXYzine PAM 25 MG Capsule PO ×2 (14:31→20:06)
[2024-04-29] MEDS: busPIRone 5 MG Tablet PO ×2 (14:32→20:06)
[2024-04-29] MEDS: guaiFENesin 1,200 MG Tablet 1200 MG PO ×2 (14:32→20:06)
[2024-04-29] MEDS: 0.9% Saline Lock 10 ML Syringe IV (14:32)
[2024-04-29] MEDS: Potassium Chloride Oral Tablet 20 MEQ PO (14:32)
[2024-04-29 15:12] LABS: M R Staph aureus DNA By PCR Negative (Negative); Probe Check PASS; Specimen Processing Control PASS
--- NOTE | 2024-04-29 15:45 | PCMCONS.TICU ---
HPI Consult Data Date of Consult: 04/29/24 HPI Narrative HPI Narrative: MARCO MAY, is a 68 F who presents [facility] Medical History Hypothyroidism Former smoker BiPAP (biphasic positive airway pressure) dependence On home oxygen therapy Asthma Seizures Stroke/cerebrovascular accident Noncompliance Diastolic CHF History of alcohol abuse Aspiration pneumonia due to gastric secretions Carcinoma in situ of breast Benign neoplasm of colon Takotsubo cardiomyopathy (06/17/21) Ischemic cerebrovascular accident (CVA) (02/06/17) Non-rheumatic mitral regurgitation Anxiety and depression Non-ischemic cardiomyopathy Essential (primary) hypertension Secondary pulmonary arterial hypertension Chronic anemia GERD (gastroesophageal reflux disease) TIO (obstructive sleep apnea) History of non-ST elevation myocardial infarction (NSTEMI) (02/03/17) History of DVT of lower extremity (02/11/17) Insomnia Hyperlipidemia Daytime hypersomnia Hemorrhagic cerebrovascular accident (CVA) (02/09/17) COPD (chronic obstructive pulmonary disease) Home Medications ?Medication ?Instructions ?Recorded ?Last Taken ?Type cholecalciferol (vitamin D3) 25 25 mcg PO DAILY supplement 11/03/20 Unknown History mcg (1,000 unit) tablet (Vitamin D3) pantoprazole 40 mg tablet,delayed 40 mg PO DAILY GERD 11/03/20 11/15/23 History release (Protonix) aripiprazole 2 mg tablet (Abilify) 2 mg PO .daily QHS mental health / 08/25/22 11/15/23 History sleep atorvastatin 40 mg tablet 40 mg PO QHS cholesterol 08/25/22 11/15/23 History metoprolol succinate 25 mg 25 mg PO DAILY blood pressure 08/25/22 11/15/23 History tablet,extended release 24 hr phenytoin 100 mg/4 mL oral 100 mg (4 mL) PO Q8 seizures 30 10/12/22 Unknown Rx suspension days #360 mL duloxetine 30 mg capsule,delayed 60 mg PO DAILY mental health 11/11/22 11/15/23 History release furosemide 20 mg tablet 20 mg PO BIDCM diuretic 11/11/22 11/15/23 History mirtazapine 7.5 mg tablet 7.5 mg PO QHS mental health #30 11/11/22 11/14/23 Rx tabs albuterol sulfate 2.5 mg/3 mL 2.5 mg (3 mL) inhalation Q2H PRN 06/30/23 11/15/23 Rx (0.083 %) solution for nebulization PRN Dyspnea, wheezing #180 mL albuterol sulfate 90 mcg/actuation 2 inh inhalation Q4H breathing 06/30/23 11/15/23 Rx aerosol inhaler #8.5 grams fluticasone fur. 100 mcg-umeclid 1 inh inhalation DAILY breathing 06/30/23 11/15/23 Rx 62.5 mcg-vilant 25 mcg 30 days #60 ea inhalat.powder (Trelegy Ellipta) aspirin 81 mg tablet,delayed 81 mg PO DAILY heart health 11/15/23 11/15/23 History release (Adult Aspirin Regimen) escitalopram oxalate 20 mg tablet 20 mg PO DAILY mental health 11/15/23 11/15/23 History hydroxyzine pamoate 25 mg capsule 25 mg PO TID anxiety 11/15/23 11/15/23 History ipratropium 0.5 mg-albuterol 3 mg 3 ml inhalation Q6H breathting 11/15/23 11/15/23 History (2.5 mg base)/3 mL nebulization soln zolpidem 10 mg tablet 10 mg PO QHS PRN insomnia 11/15/23 11/14/23 History acetaminophen 325 mg tablet 650 mg (2 x 325 mg) PO Q4H PRN PRN 11/18/23 Unknown Rx Fever, pain 1-04/13 #0 tabs dextromethorphan-guaifenesin 30 2 tab PO BID cough 7 days #28 tabs 11/18/23 Unknown Rx mg-600 mg tablet extended [id number] hr (Mucinex DM) sennosides 8.6 mg-docusate sodium 2 tab PO BID PRN PRN Constipation 11/18/23 Unknown Rx 50 mg tablet (Stool #0 tabs Softener-Stimulant Laxative) potassium chloride 20 mEq 20 meq PO BID supplement 01/28/24 Unknown History tablet,extended release(part/cryst) (Klor-Con M) L.acidophil,salivari-Bifido 1 cap PO BID #0 caps 03/08/24 Unknown Rx bifidum-Strep thermoph 175 mg capsule nystatin 100,000 unit/mL oral 5 ml mucous membrane TID 03/24/24 Unknown Rx suspension inflammation #250 mL buspirone 5 mg tablet 5 - 10 mg PO TID 04/29/24 Unknown History Allergy/AdvReac Type Severity Reaction Status Date / Time tetanus and diphtheria Allergy Hives Verified 04/29/24 10:23 toxoids (tetanus & diphtheria toxoids) Family History Sister Cancer lung Father Cancer lung Mother Cancer lung Surgical History S/P emergency tracheotomy for assistance in breathing History of tracheostomy S/P percutaneous endoscopic gastrostomy (PEG) tube placement History of left heart catheterization (06/17/21) History of bilateral cataract extraction Hx of appendectomy H/O: section History of lumpectomy History of cholecystectomy Social History household members: spouse Smoking Status: Former smoker how long ago did patient quit smokin, 1pk/day second hand exposure: Yes alcohol intake: former substance use type: does not use what type of physical activity do you participate in: walking frequency: daily Objective Data Objective Data Vital Signs: Vital Signs Last response Temperature 36.4 C L 04/29/24 14:00 Temperature Source Temporal 04/29/24 14:00 Pulse Rate 96 04/29/24 15:00 Respiratory Rate 26 H 04/29/24 15:00 Respiratory Effort Non-Labored, Mechanically Ventilated 04/29/24 13:40 Respiratory Depth Normal 04/29/24 13:40 Respiratory Pattern Normal 04/29/24 15:05 Blood Pressure 107/52 L 04/29/24 15:00 Blood Pressure Mean 70 04/29/24 15:00 Blood Pressure Source Monitor 04/29/24 15:00 Blood Pressure Position Semi-Fowlers 04/29/24 15:00 Blood Pressure Location Left Arm 04/29/24 15:00 Pulse Ox 94 04/29/24 14:30 Oxygen Delivery Method Airvo 04/29/24 15:00 Oxygen Flow Rate (L/min) 30 04/29/24 15:00 Fraction of Inspired Oxygen (FIO2) 40 04/29/24 15:05 EtCo2 (Normal 35-45 , high quality CPR 10-20 & ROSC>/=40mmHg 64 04/29/24 12:19 I&O: I&O Last 24 Hours 04/28/24 04/29/24 04/29/24 23:59 11:59 23:59 Intake Total 180 / 180 Balance 180 / 180 I&O: Total Stay 04/29/24 10:11 thru 04/29/24 15:45 Intake Total 180 Balance 180 Current Meds Ordered / Administered: Current meds ordered / Administered Generic Name Dose Route Start Last Admin Trade Name Freq PRN Reason Stop Dose Admin Acetaminophen 650 mg 04/29/24 12:38 Acetaminophen 325 Mg Tablet PO Q4H PRN PRN Fever, pain 1-10 Al Hydroxide/Mg Hydroxide 30 ml 04/29/24 12:38 Mag Hydrox/Al Hydrox/Simeth 30 Ml Udc PO Q6H PRN PRN Gastric Burning Albuterol Sulfate 2.5 mg 04/29/24 12:38 Albuterol 2.5 Mg/3 Ml Vial.Neb. INHALATION Q2H PRN PRN Dyspnea, wheezing Albuterol/Ipratropium 3 ml 04/29/24 12:38 Ipratropium/Albuterol Sulfate 3 Ml Ampul.Neb INHALATION Q6HWA.RT WALTER Aripiprazole 2 mg 04/29/24 22:00 Aripiprazole 2 Mg Tablet PO QHS [facility] Protocol Aspirin 81 mg 04/30/24 08:00 Aspirin E.C. 81 [facility] Atorvastatin Calcium 40 mg 04/29/24 22:00 Atorvastatin Calcium 40 Mg Tablet PO QHS [facility] Buspirone HCl 5 mg 04/29/24 14:00 04/29/24 14:32 Buspirone 5 Mg Tablet PO 5 mg TID WALTER Administration Cefdinir 300 mg 04/29/24 14:00 04/29/24 14:31 Cefdinir 300 Mg Capsule PO 05/03/24 22:01 300 mg Q12 WALTER Administration Chlorhexidine Gluconate 15 ml 04/29/24 22:00 Chlorhexidine 15 Ml PO BID [facility] Cholecalciferol 25 mcg 04/30/24 10:00 Cholecalciferol (Vit D3) 25 Mcg Tablet (1,000 Units) PO DAILY [facility] Duloxetine HCl 60 mg 04/30/24 10:00 Duloxetine Hcl 60 Mg Capsule PO DAILY [facility] Escitalopram Oxalate 20 mg 04/30/24 10:00 Escitalopram Oxalate 20 Mg Tablet PO DAILY [facility] Furosemide 20 mg 04/29/24 18:00 Furosemide 20 Mg Tablet PO BIDLX [facility] Protocol Guaifenesin 1,200 mg 04/29/24 14:00 04/29/24 14:32 Guaifenesin 1,200 Mg Tablet PO 1,200 mg BID WALTER Administration Hydroxyzine Pamoate 25 mg 04/29/24 14:00 04/29/24 14:31 Hydroxyzine Ivana 25 Mg Capsule PO 25 mg TID WALTER Administration Sodium Chloride 500 mls @ 15 mls/hr 04/29/24 12:51 IV .[id number] PRN Saline Flush Sodium Chloride 500 mls @ 15 mls/hr 04/29/24 12:51 IV .[id number] PRN Additional IVPB Infusion Melatonin 3 mg 04/29/24 12:38 Melatonin 3 Mg Tablet PO QHS PRN PRN INSOMNIA Methylprednisolone 40 mg 04/29/24 14:00 04/29/24 14:31 Methylprednisolone 40 Mg/Ml Vial IV 04/30/24 14:01 40 mg Q8 WALTER Administration Metoprolol Succinate 25 mg 04/30/24 10:00 Metoprolol(Xl)Succ 25 Mg Tablet PO DAILY [facility] Protocol Mirtazapine 7.5 mg 04/29/24 22:00 Mirtazapine 15 Mg Tablet PO QHS [facility] Nitroglycerin 0.4 mg 04/29/24 12:38 Nitroglycerin (Inpatient Use) 0.4 Mg Tab.Subl SL Q5M PRN CARDIAC/CHEST PAIN Pantoprazole Sodium 40 mg 04/30/24 10:00 Pantoprazole Sodium 40 Mg Tablet PO DAILY [facility] Potassium Chloride 20 meq 04/29/24 17:00 04/29/24 14:32 Potassium Chloride Oral Tablet 20 Meq PO 20 meq BIDCM WALTER Administration Prednisone 40 mg 05/01/24 08:00 Prednisone 20 Mg Tablet PO DAILY@0800 [facility] Prochlorperazine Edisylate 5 mg 04/29/24 12:38 Prochlorperazine 10 Mg/2 Ml Vial IV Q4H PRN PRN Breakthrough Nausea/Vomiting Senna/Docusate Sodium 2 tablet 04/29/24 12:38 Senna/Docusate Sodium 1 Tablet PO BID PRN PRN Constipation Sodium Chloride 10 - 40 ml 04/29/24 12:51 04/29/24 14:32 0.9% Saline Lock 10 Ml Syringe IV 10 ml UD PRN Administration SALINE FLUSH Lab / Micro Data 04/29/24 10:29 04/29/24 10:29 Labs: Laboratory Results - last 24 hr 04/29/24 10:29: WBC 7.6, RBC 3.50 L, Hgb 9.5 L, Hct 34.3 L, MCV 98.0, MCH 27.1, MCHC 27.7 L, RDW Std Deviation 53.1 H, RDW Coeff of Deonte 14.7 H, Plt Count 196, MPV 10.2, Immature Gran % (Auto) 0.800, Neut % (Auto) 64.8, Lymph % (Auto) 20.6, Beauregard % (Auto) 10.5 H, Eos % (Auto) 2.6, Baso % (Auto) 0.7, Absolute Neuts (auto) 5.0, Absolute Lymphs (auto) 1.57, Nucleated RBC % 0, Sodium 141, Potassium 4.3, Chloride 99, Carbon Dioxide > 45.0 H*, Anion Gap TNP, BUN 12, Creatinine 0.79, Estim Creat Clear Calc 54.90, Est GFR (MDRD) Af Amer 93, Est GFR (MDRD) Non-Af 77, BUN/Creatinine Ratio 15.2, Glucose 132 H, Calcium 9.2, Troponin I High Sens 26 04/29/24 10:40: Urine Color Yellow, Urine Clarity Clear, Urine pH 6.0, Ur Specific [place] 1.020, Urine Protein 100 H, Urine Glucose (UA) Normal, Urine Ketones Negative, Urine Occult Blood 50 H, Urine Nitrite Negative, Urine Bilirubin Negative, Urine Urobilinogen Normal, Ur Leukocyte Esterase Negative, Urine RBC 5-10 SEEN, Urine WBC 0-5 SEEN, Ur Squamous Epith Cells 0-5 SEEN, Urine Bacteria 2+, Hyaline Casts 10-25 SEEN, Urine Mucus 2+ 04/29/24 13:50: MRSA (PCR) Negative Micro: Microbiology 04/29/24 10:53 Mucosa - Nasopharyngeal Respiratory Panel (PCR) - Final 04/29/24 10:53 Nasal Secretion SARS-CoV-2 Antigen (Rapid) - Final ABG Data ABG results: ABG 04/29/24 10:32 Specimen Type GÉNESIS Sample Site Not entered VBG pH 7.24 L VBG pO2 47 H VBG HCO3 47 H VBG Total CO2 > 50 H VBG O2 Sat (Calc) 70 VBG Base Excess 20 H POC Mix VBG pCO2 Pt Tmp 109.4 H* O2 Delivery Device Not entered Crit Call To/Read Back Yes Blood Gas Notified Whom vickers Blood Gas Notified Time 10:34:50 Rhythm Strip Rhythm Strip: Sinus Rhythm Rate: 97 Ectopy: None Imaging Radiology Impression Chest X-Ray 04/29/24 10:50 IMPRESSION: No radiographic evidence of acute cardiopulmonary disease. Electronically Signed: Michael Benitez MD at 11:56 EDT , Assessment and Plan . Assessment and plan: HPI 68 chronically ill woman w/ chronic respiratory failure and tracheostomy tube, admitted 04/29/24 w/ altered LOC and decompensated respiratory failure w/ hypercapnia. Apparently she has not been using PPV support at home as directed. Also concern for obstruction of tube w/ secretions. Confusion and myoclonic jerks noted in ED. VBG revealed acute and chronic hypercapnia. Tube exchanged and PPV support initiated. pCXR unremarkable She has had resolution of delirium. She has received inhaled BD and systemic corticosteroids. Currently, awake, alert, responsive. She is breathing O2 via HHF thru tube. She appears comfortable. PHYSICAL EXAM GEN NAD VS as above HEENT o/p clear NECK supple, midline tube COR RRR CHEST coarse ABD soft EXT minimal edema SKIN w/d GODWIN NF ASSESSMENT 1. Acute and chronic respiratory failure w/ hypercapnia 2. Chronic tracheostomy tube 3. Suspected COPD - former tobacco use 4. Metabolic encephalopathy 5. ASCVD / chronic CHF TREATMENT PLAN -supplemental O2 as needed -NIV PPV support at night w/ sleep -follow RN OFFICE exam -inhaled BD and IV steroids -VTE ppx Critical Care Time: 50 min The entirety of this encounter was done via Telemedicine
[2024-04-29] MEDS: Furosemide 20 MG Tablet PO (17:41)
[2024-04-29] MEDS: Mirtazapine 15 MG Tablet 7.5 MG PO (20:06)
[2024-04-29] MEDS: Atorvastatin Calcium 40 MG Tablet PO (20:06)
[2024-04-29] MEDS: ARIPiprazole 2 MG Tablet PO (20:06)
[2024-04-29] MEDS: Phenytoin Na 100 MG Capsule PO (20:06)
[2024-04-29] MEDS: Chlorhexidine 15 ML PO (20:07)
[2024-04-29] MEDS: MELATONIN 3 MG TABLET PO (20:10)
[2024-04-29] MEDS: Acetaminophen 325 MG Tablet 650 MG PO (20:10)
[2024-04-29] MEDS: Zolpidem Tartrate 5 MG Tablet 10 MG PO (20:38)
[2024-04-30] VITALS (23 sets, daily range): BP systolic 92–150; BP diastolic 50–93; PULSE 70–96; RESP 14–25; TEMP 36.2–36.8; O2SAT 85–100; BMI 25.2
[2024-04-30 03:41] LABS: Absolute Lymphocyte Count 1.64 X10^3/uL (0.83-4.51); Absolute Neutrophil Count 6.4 X10^3/uL (2.0-7.7); Basophil# 0.03 X10^3/uL; Basophil% 0.3 % (0-1); Hematocrit 26.5 % (37-47); Hemoglobin 7.9 g/dL (12.0-15.0); Lymphocyte # 1.64 X10^3/ul (0.83-4.51); Lymphocyte % 18.2 % (19-41); Mean Corp Hgb Conc 29.8 g/dL (32-36); Mean Corpuscular Hgb 27.7 pg (27.0-32.0); Mean Platelet Vol. 10.4 fl (6.2-12.0); Monocyte# 0.88 X10^3/uL; Monocyte% 9.8 % (0-10); NRBC Flagged by Analyzer 0 % (0-5); Neutrophil % 71.1 % (47-70); Platelet Count 181 K/mm3 (150-450); RBC Distribution Width CV 14.6 % (11.6-14.6); RBC Distribution Width SD 50.1 fl (35.1-43.9); Red Blood Count 2.85 M/mm3 (4.2-5.4)
[2024-04-30 04:09] LABS: Anion Gap 0 (5-15); BUN 20 mg/dL (7-18); BUN/Creat Ratio 24.5 RATIO (10-20); Calcium,Total 8.9 mg/dL (8.5-10.1); Chloride 102 mmol/L (98-107); Creatinine, Serum 0.82 mg/dL (0.55-1.02); EST Glomerular Filtration Rate 74 mL/min (>60); Est Glom Filt Rate - Afr Amer 89 mL/min (>60); Estimated Creatinine Clearance 56.12 ml/min; Glucose 107 mg/dL (74-106); Phosphorus 1.1 mg/dL (2.5-4.9); Potassium 4.2 mmol/L (3.5-5.1); Sodium Level 140 mmol/L (136-145)
[2024-04-30] MEDS: 0.9% Saline Lock 10 ML Syringe IV ×2 (05:47→13:06)
[2024-04-30] MEDS: Sodium Phosphate/Na Biphos 40 MMOL in 0.9% Normal Saline (500mL Bag) 500 ML 62.5 MMOL IV (05:47)
[2024-04-30] MEDS: hydrOXYzine PAM 25 MG Capsule PO ×3 (05:48→21:32)
[2024-04-30] MEDS: busPIRone 5 MG Tablet PO ×3 (05:48→21:32)
[2024-04-30] MEDS: Phenytoin Na 100 MG Capsule PO ×3 (05:48→21:32)
--- NOTE | 2024-04-30 07:14 | PCM.PN.HOSP ---
Reason for Visit Reason for Visit: Diagnoses Acute respiratory failure with hypoxia (04/29/24) Chronic respiratory failure with hypercapnia (04/29/24) Subjective Subjective Seen improved clinically. Patient was apparently using her PPV at home as directed. She was given instructions on the proper use. There is also significant drop in patient hemoglobin level ordered iron studies as well as stool guaiac held Lovenox and aspirin Objective Data Objective Data Vital Signs: Vital Signs Temp Pulse Resp BP Pulse Ox O2 Del Method O2 Flow Rate 97.2 F L 94 22 H 150/59 H 99 Mechanical Ventilator 5 04/30/24 04:00 04/30/24 07:00 04/30/24 07:00 04/30/24 07:00 04/30/24 07:00 04/30/24 07:00 04/29/24 20:00 FiO2 35 04/30/24 07:00 Oxygen Flow Rate (L/min) 5 Oxygen Delivery Method Mechanical Ventilator Weight: 62.1 kg Body Mass Index (BMI) 25.2 Intake & Output: Intake and Output for Last 24 Hours 04/28/24 04/29/24 04/30/24 23:59 23:59 23:59 Intake Total 480 / 480 Output Total 225 / 425 250 / 250 Balance 255 / 55 -250 / -250 Lab / Micro Data 04/30/24 03:33 04/30/24 03:33 Labs: Laboratory Results - last 24 hr 04/29/24 10:29: WBC 7.6, RBC 3.50 L, Hgb 9.5 L, Hct 34.3 L, MCV 98.0, MCH 27.1, MCHC 27.7 L, RDW Std Deviation 53.1 H, RDW Coeff of Deonte 14.7 H, Plt Count 196, MPV 10.2, Immature Gran % (Auto) 0.800, Neut % (Auto) 64.8, Lymph % (Auto) 20.6, [place] % (Auto) 10.5 H, Eos % (Auto) 2.6, Baso % (Auto) 0.7, Absolute Neuts (auto) 5.0, Absolute Lymphs (auto) 1.57, Nucleated RBC % 0, Sodium 141, Potassium 4.3, Chloride 99, Carbon Dioxide > 45.0 H*, Anion Gap TNP, BUN 12, Creatinine 0.79, Estim Creat Clear Calc 54.90, Est GFR (MDRD) Af Amer 93, Est GFR (MDRD) Non-Af 77, BUN/Creatinine Ratio 15.2, Glucose 132 H, Calcium 9.2, Troponin I High Sens 26 04/29/24 10:40: Urine Color Yellow, Urine Clarity Clear, Urine pH 6.0, Ur Specific [place] 1.020, Urine Protein 100 H, Urine Glucose (UA) Normal, Urine Ketones Negative, Urine Occult Blood 50 H, Urine Nitrite Negative, Urine Bilirubin Negative, Urine Urobilinogen Normal, Ur Leukocyte Esterase Negative, Urine RBC 5-10 SEEN, Urine WBC 0-5 SEEN, Ur Squamous Epith Cells 0-5 SEEN, Urine Bacteria 2+, Hyaline Casts 10-25 SEEN, Urine Mucus 2+ 04/29/24 13:50: MRSA (PCR) Negative 04/30/24 03:33: WBC 9.0, RBC 2.85 L, Hgb 7.9 L, Hct 26.5 L, MCV 93.0 D, MCH 27.7, MCHC 29.8 L D, RDW Std Deviation 50.1 H, RDW Coeff of Deonte 14.6, Plt Count 181, MPV 10.4, Immature Gran % (Auto) 0.600, Neut % (Auto) 71.1 H, Lymph % (Auto) 18.2 L, [place] % (Auto) 9.8, Eos % (Auto) 0.0, Baso % (Auto) 0.3, Absolute Neuts (auto) 6.4, Absolute Lymphs (auto) 1.64, Nucleated RBC % 0, Sodium 140, Potassium 4.2, Chloride 102, Carbon Dioxide 38.0 H, Anion Gap 0 L, BUN 20 H, Creatinine 0.82, Estim Creat Clear Calc 56.12, Est GFR (MDRD) Af Amer 89, Est GFR (MDRD) Non-Af 74, BUN/Creatinine Ratio 24.5 H, Glucose 107 H, Calcium 8.9, Phosphorus 1.1 L*, Magnesium 2.0 Micro: Microbiology 04/29/24 10:53 Mucosa - Nasopharyngeal Respiratory Panel (PCR) - Final 04/29/24 10:53 Nasal Secretion SARS-CoV-2 Antigen (Rapid) - Final ABG Data ABG results: ABG 04/29/24 10:32 Specimen Type GÉNESIS Sample Site Not entered VBG pH 7.24 L VBG pO2 47 H VBG HCO3 47 H VBG Total CO2 > 50 H VBG O2 Sat (Calc) 70 VBG Base Excess 20 H POC Mix VBG pCO2 Pt Tmp 109.4 H* O2 Delivery Device Not entered Crit Call To/Read Back Yes Blood Gas Notified Whom vickers Blood Gas Notified Time 10:34:50 Radiography Diagnostic Testing: Radiology Impression Chest X-Ray 04/29/24 10:50 IMPRESSION: No radiographic evidence of acute cardiopulmonary disease. Electronically Signed: Michael Benitez MD at 11:56 EDT , Rhythm Strip Rhythm Strip: Sinus Rhythm Rate: 97 Ectopy: None Physical Exam Narrative GENERAL: Pt is cooperative HEENT: Trach collar in place EYES; Anicteric, Normal Conjunctiva NECK; supple, normal thyroid, RESPIRATORY: Diminished to auscultation CARDIOVASCULAR: Regular S1 S2, GI: soft, normoactive bowel sounds, : No Renal angle tenderness; EXTREMITIES: No edema, no clubbing, MUSCULOSKELETAL: no muscle wasting NEURO: Awake; no lateralizing signs. SKIN: No Rash PSYCH; Flat affect Assessment & Plan Assessment/Plan (1) Acute hypoxic on chronic hypercapnic respiratory failure: PLAN: Plan Patient is a 68-year-old lady with history of chronic hypoxic respiratory failure with previous trach placement currently on BiPAP at home brought in with involuntary movement hypoxia and some lethargy 1. Acute metabolic encephalopathy ? Secondary to combination of acute hypoxia and hypercapnic respiratory failure. VBG demonstrated pH of 7.24 with pCO2 of 109.4. Patient was placed on vent her mentation did improve ? 04/30/2024. Patient was apparently not using her PPV at home as directed. Case was discussed with respiratory therapist who did educate patient on the proper use of her equipment 2. Acute on chronic hypoxic and hypercapnic respiratory failure ? Secondary to noncompliance with BiPAP machine as well as mild COPD exacerbation. Patient was placed on the vent admitted to the intensive care unit consult placed to cereal maker for vent management ? 04/30/2024; improving clinically 3. COPD with acute exacerbation ? Patient started on bronchodilator treatment, systemic steroid as well as antibiotic therapy. Patient placed on oxygen titrated to keep saturation greater than 90. 4.? Seizure disorder ? Patient is on Dilantin plan is to resume following home med reconciliation 5. Dyslipidemia ?Patient is on statin therapy, continued at home dose 6.? Acute cystitis with E. coli ? Patient completed appropriate antibiotic therapy 7.? Hypertension ? Blood pressure controlled, home medications continued with dose adjustment as needed 8.? History of hemorrhagic CVA ? MRI on admission did demonstrate right subdural fluid collection and bilateral posterior cerebral encephalomalacia..? Requested for PT OT eval 9.? Anemia - Secondary to chronic disorder monitoring H&H and transfuse if patient becomes symptomatic or hemoglobin falls below? 7.? CBC ordered for a.m. ? Patient hemoglobin did drop to 7.9, discontinued aspirin and Lovenox ordered iron studies and stool guaiac 10.? DVT prophylaxis ? SC Lovenox ? 04/30/2024; discontinued Lovenox and aspirin, following significant drop in patient hemoglobin level Time spent in the patient's overall evaluation,decision-making process, review of diagnostic data, adjustment of management, discussion with other providers, nursing nursing and ancillary staff involved in patient's care documentation, 50 minutes Charges/Coding Visit Charges Inpatient E&M: 41619 Subs Hosp L3
[2024-04-30] MEDS: Ipratropium/Albuterol Sulfate 3 ML AMPUL.NEB INHALATION ×3 (07:26→20:14)
[2024-04-30 07:55] LABS: Iron 35 ug/dL (50-170); Iron Binding Capacity,Total 451 ug/dL (250-450); PERCENT IRON SATURATION 7.8 % (15.0-55.0)
[2024-04-30 08:14] LABS: Phenytoin (Dilantin) Level 2.8 ug/mL (10.0-20.0)
[2024-04-30] MEDS: Potassium Chloride Oral Tablet 20 MEQ PO ×2 (08:36→16:48)
[2024-04-30] MEDS: Metoprolol(XL)Succ 25 MG Tablet PO (08:36)
[2024-04-30] MEDS: Escitalopram Oxalate 20 MG Tablet PO (08:36)
[2024-04-30] MEDS: guaiFENesin 1,200 MG Tablet 1200 MG PO ×2 (08:36→21:32)
[2024-04-30] MEDS: Cefdinir 300 MG Capsule PO (08:37)
[2024-04-30] MEDS: Pantoprazole Sodium 40 MG Tablet PO (08:37)
[2024-04-30] MEDS: Cholecalciferol (VIT D3) 25 MCG TABLET (1,000 UNITS) PO (08:37)
[2024-04-30] MEDS: Furosemide 20 MG Tablet PO ×2 (08:37→16:48)
[2024-04-30] MEDS: Chlorhexidine 15 ML PO (08:38)
[2024-04-30] MEDS: DULoxetine Hcl 60 MG Capsule PO (08:38)
[2024-04-30] MEDS: ALPRAZolam 0.5 MG Tablet PO (14:09)
[2024-04-30] MEDS: levoFLOXacin 750 MG Tablet PO (16:48)
[2024-04-30] MEDS: Na Biphos/Potassium Phosphate PACKET 1 PACKET PO ×2 (16:48→21:32)
[2024-04-30] MEDS: ARIPiprazole 2 MG Tablet PO (21:32)
[2024-04-30] MEDS: Mirtazapine 15 MG Tablet 7.5 MG PO (21:32)
[2024-04-30] MEDS: Atorvastatin Calcium 40 MG Tablet PO (21:32)
[2024-04-30] MEDS: Acetaminophen 325 MG Tablet 650 MG PO (22:55)
[2024-04-30] MEDS: MELATONIN 3 MG TABLET PO (22:55)
[2024-05-01 00:58] VITALS: BP 105/54; PULSE 80; RESP 16; TEMP 36.7; O2SAT 99
[2024-05-01] MEDS: ALPRAZolam 0.5 MG Tablet PO ×2 (00:59→11:52)
[2024-05-01 03:44] VITALS: BP 111/53; PULSE 80; RESP 18; TEMP 36.6; O2SAT 97
[2024-05-01 06:00] VITALS: BMI 25.0
[2024-05-01 06:13] LABS: Absolute Lymphocyte Count 1.86 X10^3/uL (0.83-4.51); Absolute Neutrophil Count 3.7 X10^3/uL (2.0-7.7); Basophil# 0.03 X10^3/uL; Basophil% 0.5 % (0-1); Eosinophils% 1.5 % (0-5); Hemoglobin 8.3 g/dL (12.0-15.0); Lymphocyte # 1.86 X10^3/ul (0.83-4.51); Lymphocyte % 28.7 % (19-41); Mean Corp Hgb Conc 29.6 g/dL (32-36); Mean Corpuscular Hgb 27.2 pg (27.0-32.0); Mean Corpuscular Volume 91.8 fL (81-99); Mean Platelet Vol. 9.8 fl (6.2-12.0); Monocyte# 0.78 X10^3/uL; NRBC Flagged by Analyzer 0 % (0-5); Neutrophil # 3.68 X10^3/uL (2.7-7.7); Neutrophil % 56.8 % (47-70); Platelet Count 157 K/mm3 (150-450); RBC Distribution Width SD 50.4 fl (35.1-43.9); Red Blood Count 3.05 M/mm3 (4.2-5.4); White Blood Count 6.5 K/mm3 (4.4-11.0)
[2024-05-01] MEDS: busPIRone 5 MG Tablet PO (06:39)
[2024-05-01] MEDS: Phenytoin Na 100 MG Capsule PO (06:39)
[2024-05-01] MEDS: hydrOXYzine PAM 25 MG Capsule PO (06:39)
[2024-05-01 07:03] LABS: Anion Gap 2 (5-15); BUN 17 mg/dL (7-18); BUN/Creat Ratio 24.5 RATIO (10-20); Calcium,Total 8.5 mg/dL (8.5-10.1); Chloride 105 mmol/L (98-107); Creatinine, Serum 0.69 mg/dL (0.55-1.02); EST Glomerular Filtration Rate 89 mL/min (>60); Est Glom Filt Rate - Afr Amer 108 mL/min (>60); Estimated Creatinine Clearance 57.48 ml/min; Glucose 101 mg/dL (74-106); Magnesium 1.8 mg/dL (1.6-2.6); Potassium 3.5 mmol/L (3.5-5.1); Sodium Level 142 mmol/L (136-145)
[2024-05-01 07:07] LABS: Phosphorus 3.5 mg/dL (2.5-4.9)
[2024-05-01] MEDS: Ipratropium/Albuterol Sulfate 3 ML AMPUL.NEB INHALATION (07:24)
[2024-05-01 07:26] VITALS: PULSE 92; RESP 20; O2SAT 94
[2024-05-01 07:33] VITALS: BP 112/56; PULSE 77; RESP 20; TEMP 36.3; O2SAT 100
--- NOTE | 2024-05-01 08:13 | PN.HOSP_ITS ---
Reason for Visit Reason for Visit: Diagnoses Acute respiratory failure with hypoxia (04/29/24) Chronic respiratory failure with hypercapnia (04/29/24) Subjective Subjective Patient seen clinical condition significantly improved plan is for patient to be assessed for discharge Objective Data Objective Data Vital Signs: Vital Signs Temp Pulse Resp BP Pulse Ox O2 Del Method O2 Flow Rate 97.4 F L 77 20 H 112/56 L 100 Nasal Cannula 3 05/01/24 07:33 05/01/24 07:33 05/01/24 07:33 05/01/24 07:33 05/01/24 07:33 05/01/24 07:50 05/01/24 07:50 FiO2 35 04/30/24 07:00 Oxygen Flow Rate (L/min) 3 Oxygen Delivery Method Nasal Cannula Weight: 62 kg Body Mass Index (BMI) 25.0 Intake & Output: Intake and Output for Last 24 Hours 04/29/24 04/30/24 05/01/24 23:59 23:59 23:59 Intake Total 480 / 005 093.8513 / 513.3333 Output Total 225 / 425 250 / 250 Balance 255 / 55 263.3333 / 263.3333 Lab / Micro Data 05/01/24 06:00 05/01/24 06:00 Labs: Laboratory Results - last 24 hr 04/29/24 10:29: Phenytoin 2.8 L 05/01/24 06:00: WBC 6.5, RBC 3.05 L, Hgb 8.3 L, Hct 28.0 L, MCV 91.8, MCH 27.2, MCHC 29.6 L, RDW Std Deviation 50.4 H, RDW Coeff of Deonte 15.0 H, Plt Count 157, MPV 9.8, Immature Gran % (Auto) 0.500, Neut % (Auto) 56.8, Lymph % (Auto) 28.7, [place] % (Auto) 12.0 H, Eos % (Auto) 1.5, Baso % (Auto) 0.5, Absolute Neuts (auto) 3.7, Absolute Lymphs (auto) 1.86, Nucleated RBC % 0, Sodium 142, Potassium 3.5, Chloride 105, Carbon Dioxide 35.0 H, Anion Gap 2 L, BUN 17, Creatinine 0.69, Estim Creat Clear Calc 57.48, Est GFR (MDRD) Af Amer 108, Est GFR (MDRD) Non-Af 89, BUN/Creatinine Ratio 24.5 H, Glucose 101, Calcium 8.5, Phosphorus 3.5, Magnesium 1.8 Micro: Microbiology 04/29/24 11:20 Sputum, Induced/Lukens Gram Stain - Final 04/29/24 11:20 Sputum, Induced/Lukens Respiratory Culture - Preliminary GNR Poss Pseudomonas sp 04/29/24 10:53 Mucosa - Nasopharyngeal Respiratory Panel (PCR) - Final 04/29/24 10:53 Nasal Secretion SARS-CoV-2 Antigen (Rapid) - Final Rhythm Strip Rhythm Strip: Sinus Rhythm Rate: 97 Ectopy: None Physical Exam Narrative GENERAL: Pt is cooperative HEENT: Trach collar in place EYES; Anicteric, Normal Conjunctiva NECK; supple, normal thyroid, RESPIRATORY: Diminished to auscultation CARDIOVASCULAR: Regular S1 S2, GI: soft, normoactive bowel sounds, : No Renal angle tenderness; EXTREMITIES: No edema, no clubbing, MUSCULOSKELETAL: no muscle wasting NEURO: Awake; no lateralizing signs. SKIN: No Rash PSYCH; Flat affect Assessment & Plan Assessment/Plan (1) Acute hypoxic on chronic hypercapnic respiratory failure: PLAN: Plan Patient is a 68-year-old lady with history of chronic hypoxic respiratory failure with previous trach placement currently on BiPAP at home brought in with involuntary movement hypoxia and some lethargy 1. Acute metabolic encephalopathy ? Secondary to combination of acute hypoxia and hypercapnic respiratory failure. VBG demonstrated pH of 7.24 with pCO2 of 109.4. Patient was placed on vent her mentation did improve ? 04/30/2024. Patient was apparently not using her PPV at home as directed. Case was discussed with respiratory therapist who did educate patient on the proper use of her equipment 2. Acute on chronic hypoxic and hypercapnic respiratory failure ? Secondary to noncompliance with BiPAP machine as well as mild COPD exacerbation. Patient was placed on the vent admitted to the intensive care unit consult placed to waxed bag machine operator for vent management ? 04/30/2024; improving clinically 3. COPD with acute exacerbation ? Patient started on bronchodilator treatment, systemic steroid as well as antibiotic therapy. Patient placed on oxygen titrated to keep saturation greater than 90. 4.? Seizure disorder ? Patient is on Dilantin plan is to resume following home med reconciliation 5. Dyslipidemia ?Patient is on statin therapy, continued at home dose 6.? Acute cystitis with E. coli ? Patient completed appropriate antibiotic therapy 7.? Hypertension ? Blood pressure controlled, home medications continued with dose adjustment as needed 8.? History of hemorrhagic CVA ? MRI on admission did demonstrate right subdural fluid collection and bilateral posterior cerebral encephalomalacia..? Requested for PT OT eval 9.? Anemia - Secondary to chronic disorder monitoring H&H and transfuse if patient becomes symptomatic or hemoglobin falls below? 7.? CBC ordered for a.m. ? Patient hemoglobin did drop to 7.9, discontinued aspirin and Lovenox ordered iron studies and stool guaiac 10.? DVT prophylaxis ? SC Lovenox ? 04/30/2024; discontinued Lovenox and aspirin, following significant drop in patient hemoglobin level Time spent in the patient's overall evaluation,decision-making process, review of diagnostic data, adjustment of management, discussion with other providers, nursing nursing and ancillary staff involved in patient's care documentation, 50 minutes
[2024-05-01 08:22] LABS: Vitamin B12 252 pg/mL (211-911)
--- NOTE | 2024-05-01 09:47 | PCM.DC.SUM ---
Providers Date of Admission: 04/29/24 Date of Discharge: 05/01/24 Primary Care Physician: Dr. Maryam Pineda MD Consultations 04/29/24 12:38 Consult: Computer Network Specialist / Pulmonary Medicine Routine Consulting Provider: Intensivists/Pulmonary Med Reason for Consult: resp failure EMERGENT Consult: No MD Notified: Yes Date Notified: 04/29/24 Time Notified: 12:56 Method of Notification: Answering Service Reason For Visit: ACUTE HYPERCAPNIC RESPIRATORY Diagnosis Discharge Diagnosis (1) Acute hypoxic on chronic hypercapnic respiratory failure: Status: Acute Code(s): J96.01 - Acute respiratory failure with hypoxia; J96.12 - Chronic respiratory failure with hypercapnia Plan Patient is a 68-year-old lady with history of chronic hypoxic respiratory failure with previous trach placement currently on BiPAP at home brought in with involuntary movement hypoxia and some lethargy 1. Acute metabolic encephalopathy ? Secondary to combination of acute hypoxia and hypercapnic respiratory failure. VBG demonstrated pH of 7.24 with pCO2 of 109.4. Patient was placed on vent her mentation did improve ? 04/30/2024. Patient was apparently not using her PPV at home as directed. Case was discussed with respiratory therapist who did educate patient on the proper use of her equipment 2. Acute on chronic hypoxic and hypercapnic respiratory failure ? Secondary to noncompliance with BiPAP machine as well as mild COPD exacerbation. Patient was placed on the vent admitted to the intensive care unit consult placed to stud setter for vent management ? 04/30/2024; improving clinically 3. COPD with acute exacerbation ? Patient started on bronchodilator treatment, systemic steroid as well as antibiotic therapy. Patient placed on oxygen titrated to keep saturation greater than 90. 4.? Seizure disorder ? Patient is on Dilantin plan is to resume following home med reconciliation 5. Dyslipidemia ?Patient is on statin therapy, continued at home dose 6.? Acute cystitis with E. coli ? Patient completed appropriate antibiotic therapy 7.? Hypertension ? Blood pressure controlled, home medications continued with dose adjustment as needed 8.? History of hemorrhagic CVA ? MRI on admission did demonstrate right subdural fluid collection and bilateral posterior cerebral encephalomalacia..? Requested for PT OT eval 9.? Anemia - Secondary to chronic disorder monitoring H&H and transfuse if patient becomes symptomatic or hemoglobin falls below? 7.? CBC ordered for a.m. ? Patient hemoglobin did drop to 7.9, discontinued aspirin and Lovenox ordered iron studies and stool guaiac ? 05/01/2024; hemoglobin on discharge 8.3 10.? DVT prophylaxis ? SC Lovenox ? 04/30/2024; discontinued Lovenox and aspirin, following significant drop in patient hemoglobin level Time spent in the patient's overall evaluation,decision-making process, review of diagnostic data, adjustment of management, discussion with other providers, nursing nursing and ancillary staff involved in patient's care documentation, 35 minutes Medications at Discharge Home Medications cholecalciferol (vitamin D3) 25 mcg (1,000 unit) tablet (Vitamin D3) 25 mcg PO DAILY supplement 11/03/20 pantoprazole 40 mg tablet,delayed release (Protonix) 40 mg PO DAILY GERD 11/03/20 aripiprazole 2 mg tablet (Abilify) 2 mg PO .daily QHS mental health / sleep 08/25/22 atorvastatin 40 mg tablet 40 mg PO QHS cholesterol 08/25/22 metoprolol succinate 25 mg tablet,extended release 24 hr 25 mg PO DAILY blood pressure 08/25/22 phenytoin 100 mg/4 mL oral suspension 100 mg (4 mL) PO Q8 seizures 30 days #360 mL 10/12/22 duloxetine 30 mg capsule,delayed release 60 mg PO DAILY mental health 11/11/22 furosemide 20 mg tablet 20 mg PO BIDCM diuretic 11/11/22 mirtazapine 7.5 mg tablet 7.5 mg PO QHS mental health #30 tabs 11/11/22 albuterol sulfate 2.5 mg/3 mL (0.083 %) solution for nebulization 2.5 mg (3 mL) inhalation Q2H PRN PRN Dyspnea, wheezing #180 mL 06/30/23 albuterol sulfate 90 mcg/actuation aerosol inhaler 2 inh inhalation Q4H breathing #8.5 grams 06/30/23 fluticasone fur. 100 mcg-umeclid 62.5 mcg-vilant 25 mcg inhalat.powder (Trelegy Ellipta) 1 inh inhalation DAILY breathing 30 days #60 ea 06/30/23 aspirin 81 mg tablet,delayed release (Adult Aspirin Regimen) 81 mg PO DAILY heart health 11/15/23 escitalopram oxalate 20 mg tablet 20 mg PO DAILY mental health 11/15/23 hydroxyzine pamoate 25 mg capsule 25 mg PO TID anxiety 11/15/23 ipratropium 0.5 mg-albuterol 3 mg (2.5 mg base)/3 mL nebulization soln 3 ml inhalation Q6H breathting 11/15/23 acetaminophen 325 mg tablet 650 mg (2 x 325 mg) PO Q4H PRN PRN Fever, pain 1-04/13 #0 tabs 11/18/23 dextromethorphan-guaifenesin 30 mg-600 mg tablet extended [id number] hr (Mucinex DM) 2 tab PO BID cough 7 days #28 tabs 11/18/23 sennosides 8.6 mg-docusate sodium 50 mg tablet (Stool Softener-Stimulant Laxative) 2 tab PO BID PRN PRN Constipation #0 tabs 11/18/23 potassium chloride 20 mEq tablet,extended release(part/cryst) (Klor-Con M) 20 meq PO BID supplement 01/28/24 L.acidophil,salivari-Bifido bifidum-Strep thermoph 175 mg capsule 1 cap PO BID #0 caps 03/08/24 nystatin 100,000 unit/mL oral suspension 5 ml mucous membrane TID inflammation #250 mL 03/24/24 alprazolam 0.5 mg tablet 0.5 mg PO TID PRN PRN Anxiety/Agitation #20 tabs 05/01/24 levofloxacin 750 mg tablet 750 mg PO DAILY 7 days #7 tabs 05/01/24 potassium, sodium phosphates 280 mg-160 mg-250 mg oral powder packet 1 packet PO BID #20 ea 05/01/24 prednisone 20 mg tablet 40 mg (2 x 20 mg) PO DAILY 5 days #10 tabs 05/01/24 Physical Exam Narrative GENERAL: Pt is cooperative HEENT: Trach collar in place EYES; Anicteric, Normal Conjunctiva NECK; supple, normal thyroid, RESPIRATORY: Diminished to auscultation CARDIOVASCULAR: Regular S1 S2, GI: soft, normoactive bowel sounds, : No Renal angle tenderness; EXTREMITIES: No edema, no clubbing, MUSCULOSKELETAL: no muscle wasting NEURO: Awake; no lateralizing signs. SKIN: No Rash PSYCH; Flat affect Weight / BMI Weight Weight: 62 kg Body Mass Index (BMI) 25.0 ABG / Lab / Microbiology Data 05/01/24 06:00 05/01/24 06:00 Laboratory: Laboratory Results - last 24 hr 05/01/24 06:00: WBC 6.5, RBC 3.05 L, Hgb 8.3 L, Hct 28.0 L, MCV 91.8, MCH 27.2, MCHC 29.6 L, RDW Std Deviation 50.4 H, RDW Coeff of Deonte 15.0 H, Plt Count 157, MPV 9.8, Immature Gran % (Auto) 0.500, Neut % (Auto) 56.8, Lymph % (Auto) 28.7, [place] % (Auto) 12.0 H, Eos % (Auto) 1.5, Baso % (Auto) 0.5, Absolute Neuts (auto) 3.7, Absolute Lymphs (auto) 1.86, Nucleated RBC % 0, Sodium 142, Potassium 3.5, Chloride 105, Carbon Dioxide 35.0 H, Anion Gap 2 L, BUN 17, Creatinine 0.69, Estim Creat Clear Calc 57.48, Est GFR (MDRD) Af Amer 108, Est GFR (MDRD) Non-Af 89, BUN/Creatinine Ratio 24.5 H, Glucose 101, Calcium 8.5, Phosphorus 3.5, Magnesium 1.8, Vitamin B12 252 Microbiology: Microbiology 04/29/24 11:20 Sputum, Induced/Lukens Gram Stain - Final 04/29/24 11:20 Sputum, Induced/Lukens Respiratory Culture - Final Pseudomonas aeruginosa#2 Pseudomonas aeruginosa 04/29/24 10:53 Mucosa - Nasopharyngeal Respiratory Panel (PCR) - Final 04/29/24 10:53 Nasal Secretion SARS-CoV-2 Antigen (Rapid) - Final D/C Instructions Discharge Diet: No restrictions Discharge Activity: Return to Normal Activity Call your doctor if you observe: Fever of 101 or Higher, Shortness of breath, Fainting spells and Chest pain Meaningful Use Info Meaningful Use Meaningful Use Diagnoses (Choose all that apply): None applicable Ischemic Stroke Statin Dosing Therapy Reference: STATIN DOSE THERAPY REFERENCE: * Patients > 75 years receive moderate or high dose statin therapy. * Patients 75 years or YOUNGER should receive HIGH intensity statin dose unless contraindicated. You will be required to document reason for non-treatment if statin daily dose does not meet guidelines. HIGH DOSE STATIN THERAPY DAILY Atorvastatin > than or = to 40 mg Rosuvastatin > than or = to 20 mg Amlodipine + Atorvastatin > than or = to 2.5/40 mg Ezetimibe + Simvastatin 10/80 mg Simvastatin 80mg Discharge Plan Admission Admit Date/Time: 04/29/24 11:28 Attending Provider: Guero Tuttle Primary Care Provider: Maryam Pineda Consulting Providers: Catalino Yap; Nicolas Thomas; Mike Duarte; Anurag Flannery; Guero Collins; James Patterson; Brian Barry; Evelyne Machado; Armand Ambrosio; Ino Stephen; Chula Lopez; Mainor Boateng; Pernell Barrios; Mli Meyer; Kraig Varghese; Kyle De Paz; Antonio Delacruz; Kishan Casillas Discharge Orders/Prescriptions Prescriptions: New prednisone 20 mg Tablet 40 mg PO DAILY 5 Days Qty: 10 0RF alprazolam 0.5 mg Tablet 0.5 mg PO TID PRN PRN (Reason: Anxiety/Agitation) Qty: 20 0RF levofloxacin 750 mg Tablet 750 mg PO DAILY 7 Days Qty: 7 0RF potassium, sodium phosphates 280-160-250 mg Powder In Packet 1 packet PO BID Qty: 20 0RF Continued atorvastatin 40 mg tablet 40 mg PO QHS MDD 40 metoprolol succinate 25 mg tablet extended release 24 hr 25 mg PO DAILY MDD 25 aripiprazole [Abilify] 2 mg tablet 2 mg PO .daily QHS MDD 2mg albuterol sulfate 90 mcg/actuation HFA aerosol inhaler 2 inh inhalation Q4H Qty: 8.5 11RF albuterol sulfate 2.5 mg /3 mL (0.083 %) solution for nebulization 2.5 mg inhalation Q2H PRN PRN (Reason: Dyspnea, wheezing) Qty: 180 6RF Trelegy Ellipta 100-62.5-25 mcg blister with device 1 inh INHALATION DAILY 30 Days Qty: 60 6RF nystatin 100,000 unit/mL suspension 5 ml mucous membrane TID Qty: 250 1RF Rx Instructions: swish and swallow 5 cc three times per day for 10 days pantoprazole [Protonix] 40 mg Tablet,Delayed Release (Dr/Ec) 40 mg PO DAILY cholecalciferol (vitamin D3) [Vitamin D3] 25 mcg (1,000 unit) Tablet 25 mcg PO DAILY phenytoin 100 mg/4 mL Suspension 100 mg PO Q8 30 Days Qty: 360 2RF furosemide 20 mg tablet 20 mg PO BIDCM MDD 40 duloxetine 30 mg capsule,delayed release(DR/EC) 60 mg PO DAILY MDD 60 mirtazapine 7.5 mg tablet 7.5 mg PO QHS Qty: 30 0RF potassium chloride [Klor-Con M20] 20 mEq tablet,ER particles/crystals 20 meq PO BID aspirin [Adult Aspirin Regimen] 81 mg tablet,delayed release (DR/EC) 81 mg PO DAILY ipratropium-albuterol 0.5 mg-3 mg(2.5 mg base)/3 mL solution for nebulization 3 ml inhalation Q6H Rx Instructions: EVERY 6 HOURS WHILE AWAKE hydroxyzine pamoate 25 mg capsule 25 mg PO TID escitalopram oxalate 20 mg tablet 20 mg PO DAILY acetaminophen 325 mg Tablet 650 mg PO Q4H PRN PRN (Reason: Fever, pain 1-04/13) Qty: 0 0RF sennosides-docusate sodium [Stool Softener-Stimulant Laxat] 8.6-50 mg Tablet 2 tab PO BID PRN PRN (Reason: Constipation) Qty: 0 0RF Mucinex DM 30-600 mg Tablet Extended Release 12 Hr 2 tab PO BID 7 Days Qty: 28 0RF L.acidoph,saliva-B.bif-S.therm 175 mg Capsule 1 cap PO BID Qty: 0 0RF Discontinued buspirone 5 mg tablet 5 - 10 mg PO TID zolpidem 10 mg tablet 10 mg PO QHS PRN (Reason: insomnia) Referrals / Follow Up: Maryam Pineda MD [Primary Care Provider] - In 1 Week Disposition Disposition (needs filled in before D/C Order can be placed): Home, Self Care Charges/Coding Visit Charges Inpatient E&M: 96135 Disch Hosp >30min
--- NOTE | 2024-05-01 10:10 | CASEMGMT ---
FINESSE LALA Face to Face with patient for initial transition planning/care coordination assessment. FINESSE LALA introduced self and role at [facility]. Patient lying in bed, alert and oriented. Patient willing to participate in assessment and is able to answer all questions appropriately. Care providers, pharmacy, and demographics verified. Strata: 4 PCP: Miriam Specialists: Rodney, produce department manager; JOHN, pompom maker; Preferred Pharmacy: [facility] Insurance: [employer] [facility] Prescription Benefit: yes Living Will/HPOA: yes, александр Lindquist LNOK: daughter, brother, significant other Living Arrangements: Patient lives with significant other in a single story home with no steps to enter. Patient states she is independent at home for self care. Brother completes trach care for patient. Transportation: daughter, brother DME/HHC: Patient has walker, shower chair, nebuilzer, pulse ox, home oxygen with portability through [employer] 5lpm continuously, and NIV. Patient has been to [facility] and [facility] in the past. Patient has had [facility] and [facility] in the past. Patient wishes to discharge home with [facility]. Patient states she prefers [facility] and declined HHC list. Patient's NIV at bedside and had been wearing it during this hospitalization. Patient states she does not know how to use NIV from home. RN SPIKE called and requested RT do teaching with patient at bedside. RN SPIKE educated patient on the importance of wearing NIV at home. Patient denied further needs, gave permission to call daughter. RN SPIKE called daughter Ameena and discuss discharge planning. Ameena voiced frustration with patient consistently not wearing NIV at home. Daughter agreeable to [facility] at discharge. Daughter had no further questions or concerns. FINESSE LALA updated [facility] regarding education and request visit, per [place] at [facility], due to compliancy issues, not able to service or see patient. FINESSE LALA asked [place] to reach out to александр Lindquist. Referral made to [facility], awaiting response. CM to follow for discharge planning needs that may arise. Disposition Plan: Patient to discharge home with [facility], family support, and follow-up plans in place. Carla BROWN, RN, CM
[2024-05-01] MEDS: Potassium Chloride Oral Tablet 20 MEQ PO (10:12)
[2024-05-01] MEDS: predniSONE 20 MG Tablet 40 MG PO (10:14)
[2024-05-01] MEDS: Furosemide 20 MG Tablet PO (10:15)
[2024-05-01] MEDS: DULoxetine Hcl 60 MG Capsule PO (10:15)
[2024-05-01] MEDS: levoFLOXacin 750 MG Tablet PO (10:16)
[2024-05-01] MEDS: Escitalopram Oxalate 20 MG Tablet PO (10:17)
[2024-05-01] MEDS: guaiFENesin 1,200 MG Tablet 1200 MG PO (10:17)
[2024-05-01 10:18] VITALS: BP 112/56; PULSE 77
[2024-05-01] MEDS: Pantoprazole Sodium 40 MG Tablet PO (10:18)
[2024-05-01] MEDS: Na Biphos/Potassium Phosphate PACKET 1 PACKET PO (10:18)
[2024-05-01] MEDS: Metoprolol(XL)Succ 25 MG Tablet PO (10:18)
[2024-05-01] MEDS: Cholecalciferol (VIT D3) 25 MCG TABLET (1,000 UNITS) PO (10:19)
--- NOTE | 2024-05-01 12:30 | CASEMGMT ---
FINESSE LALA received update from [facility] and they are able to accept patient with planned start of care for Wednesday. FINESSE LALA updated patient and discharge plan. Patient had no further questions or concerns.
[2024-05-01 12:42] VITALS: BP 110/67; PULSE 84; RESP 22; TEMP 36.7; O2SAT 96
== END 2024-05-01 13:03 | disposition home or self-care (01) | DRG 208 ==
LOC: ED 11:33 → ICU 11:59 → PCU 04-30 10:44
PROVIDERS: Admitting Provider Internal Medicine; Emergency Provider Emergency Medicine; PCP Internal Medicine; Visit Provider Internal Medicine
DX: J96.21 Acute and chronic respiratory failure with hypoxia (principal); G93.41 Metabolic encephalopathy; I50.30 Unspecified diastolic (congestive) heart failure; J44.1 Chronic obstructive pulmonary disease with (acute) exacerbation; N30.00 Acute cystitis without hematuria; D63.8 Anemia in other chronic diseases classified elsewhere; B96.5 Pseudomonas (aeruginosa) (mallei) (pseudomallei) as the cause of diseases classified elsewhere; I11.0 Hypertensive heart disease with heart failure; G40.909 Epilepsy, unspecified, not intractable, without status epilepticus; Z93.0 Tracheostomy status; E78.5 Hyperlipidemia, unspecified; J96.22 Acute and chronic respiratory failure with hypercapnia; I25.10 Atherosclerotic heart disease of native coronary artery without angina pectoris; G93.89 Other specified disorders of brain; G47.33 Obstructive sleep apnea (adult) (pediatric); I25.2 Old myocardial infarction; K21.9 Gastro-esophageal reflux disease without esophagitis; F41.8 Other specified anxiety disorders; J40 Bronchitis, not specified as acute or chronic; Z79.51 Long term (current) use of inhaled steroids; B96.20 Unspecified Escherichia coli [E. coli] as the cause of diseases classified elsewhere; Z79.82 Long term (current) use of aspirin; Z87.891 Personal history of nicotine dependence; Z86.73 Personal history of transient ischemic attack (TIA), and cerebral infarction without residual deficits; Z99.81 Dependence on supplemental oxygen; Z79.899 Other long term (current) drug therapy; G47.00 Insomnia, unspecified; Z90.49 Acquired absence of other specified parts of digestive tract; Z98.41 Cataract extraction status, right eye; Z98.42 Cataract extraction status, left eye; Z91.198 Patient's noncompliance with other medical treatment and regimen for other reason
CPT/HCPCS: 31720; 36415; 71045; 80048; 81001; 82607; 82803; 83540; 83550; 83735; 84100; 84484; 85025; 87070; 87077; 87184; 87186; 87205; 87633; 87641; 87811; 93005; 94002; 94003; 94640; 94660; 94762; 97162; 97165; 97535; 99252; 99285; J7040; P9612; A4216; G0463

== ENCOUNTER 2024-05-15 14:33 | Inpatient (IN) | payer MEDICARE, SELFPAY ==
[2024-05-15] VITALS (19 sets, daily range): BP systolic 84–128; BP diastolic 47–89; PULSE 71–132; RESP 14–24; TEMP 36–37.1; O2SAT 64–100; BMI 26.8; BMI 25.4
[2024-05-15] MEDS: Ipratropium/Albuterol Sulfate 3 ML AMPUL.NEB 9 ML INHALATION (15:11)
[2024-05-15] MEDS: MethylPREDNISolone 125 MG/2 ML Vial IV (15:28)
--- NOTE | 2024-05-15 15:32 | RAD_ITS ---
STUDY: X-RAY CHEST REASON FOR EXAM: Female, 68 years old. Shortness of breath TECHNIQUE: Single frontal view of the chest. COMPARISON: April 29, 2024 FINDINGS: Trach tube unchanged. Lungs are hyperaerated. Possible retrocardiac infiltrate. There is no demonstrated pleural abnormality. Cardiomegaly. Normal mediastinum and jacinto. Normal visualized pulmonary arteries. Normal visualized aortic arch and descending thoracic aorta. Normal visualized thoracic spine. Normal visualized ribs, clavicles, and shoulders. There is no demonstrated abnormality of the visualized soft tissue structures of the upper abdomen. RAD/Chest 1 View (Portable) IMPRESSION: COPD. Possible left lower lobe infiltrate. Electronically Signed: Rayray Valencia MD at 17:14 EST ,
--- NOTE | 2024-05-15 15:33 | ED.RN ---
holding 500cc NS bolus verified with Dr Grayson.
--- NOTE | 2024-05-15 15:35 | ED.VIS.DYS ---
HPI History of Present Illness Chief Complaint: Shortness of Breath Narrative Narrative: Chief complaint and HPI: Shortness of breath. 68-year-old female with history of severe COPD status post tracheostomy on 3 L baseline, CVA, CHF presents for evaluation of shortness of breath. History taken by patient as well as brother. Patient states she became significantly short of breath this morning. She states she has been using nebulizer treatments at home with little relief. Brother states that he has been suctioning her trach and has noticed increased secretions and increased work of breathing over the last several days. Patient denies any fever, chills, URI symptom other than cough, chest pain, abdominal pain, nausea, vomiting, dysuria. Brother states she did have urinary incontinence this morning. She denies any back pain numbness or tingling or weakness. Per brother patient takes 10 mg of prednisone daily. Review of systems: See HPI Medications: As listed on the chart Allergies: As listed on the chart PFSH: Per chart Vital signs: As listed on the chart. Reviewed. Physical exam: Gen: A&O x3, dyspneic with increased work of breathing Eyes: No sclera icterus, conjunctiva clear ENT: Moist mucous membranes Neck: Trach in place with multiple secretions CV: Tachycardic, regular rhythm, no murmurs Resp: Lungs coarse bilaterally and diminished in the bilateral bases, tight, poor airflow, dyspneic when speaking, tachypneic, increased work of breathing, on 6 L NC GI: Abd soft, non-distended, non-tender, no r/r/g Musc: Full ROM, no deformity Skin: Warm, dry Neuro: Alert, oriented, grossly intact, sensation intact Psych: Cooperative, appropriate mood and affect [facility] Medical History Hypothyroidism Former smoker BiPAP (biphasic positive airway pressure) dependence On home oxygen therapy Asthma Seizures Stroke/cerebrovascular accident Noncompliance Diastolic CHF History of alcohol abuse Aspiration pneumonia due to gastric secretions Carcinoma in situ of breast Benign neoplasm of colon Takotsubo cardiomyopathy (06/17/21) Ischemic cerebrovascular accident (CVA) (02/06/17) Non-rheumatic mitral regurgitation Anxiety and depression Non-ischemic cardiomyopathy Essential (primary) hypertension Secondary pulmonary arterial hypertension Chronic anemia GERD (gastroesophageal reflux disease) TIO (obstructive sleep apnea) History of non-ST elevation myocardial infarction (NSTEMI) (02/03/17) History of DVT of lower extremity (02/11/17) Insomnia Hyperlipidemia Daytime hypersomnia Hemorrhagic cerebrovascular accident (CVA) (02/09/17) COPD (chronic obstructive pulmonary disease) Home Medications ?Medication ?Instructions ?Recorded ?Last Taken ?Type cholecalciferol (vitamin D3) 25 25 mcg PO DAILY supplement 11/03/20 Unknown History mcg (1,000 unit) tablet (Vitamin D3) pantoprazole 40 mg tablet,delayed 40 mg PO DAILY GERD 11/03/20 11/15/23 History release (Protonix) aripiprazole 2 mg tablet (Abilify) 2 mg PO .daily QHS mental health / 08/25/22 11/15/23 History sleep atorvastatin 40 mg tablet 40 mg PO QHS cholesterol 08/25/22 11/15/23 History metoprolol succinate 25 mg 25 mg PO DAILY blood pressure 08/25/22 11/15/23 History tablet,extended release 24 hr phenytoin 100 mg/4 mL oral 100 mg (4 mL) PO Q8 seizures 30 10/12/22 Unknown Rx suspension days #360 mL duloxetine 30 mg capsule,delayed 60 mg PO DAILY mental health 11/11/22 11/15/23 History release furosemide 20 mg tablet 20 mg PO BIDCM diuretic 11/11/22 11/15/23 History mirtazapine 7.5 mg tablet 7.5 mg PO QHS mental health #30 11/11/22 11/14/23 Rx tabs albuterol sulfate 2.5 mg/3 mL 2.5 mg (3 mL) inhalation Q2H PRN 06/30/23 11/15/23 Rx (0.083 %) solution for nebulization PRN Dyspnea, wheezing #180 mL albuterol sulfate 90 mcg/actuation 2 inh inhalation Q4H breathing 06/30/23 11/15/23 Rx aerosol inhaler #8.5 grams fluticasone fur. 100 mcg-umeclid 1 inh inhalation DAILY breathing 06/30/23 11/15/23 Rx 62.5 mcg-vilant 25 mcg 30 days #60 ea inhalat.powder (Trelegy Ellipta) aspirin 81 mg tablet,delayed 81 mg PO DAILY heart health 11/15/23 11/15/23 History release (Adult Aspirin Regimen) escitalopram oxalate 20 mg tablet 20 mg PO DAILY mental health 11/15/23 11/15/23 History hydroxyzine pamoate 25 mg capsule 25 mg PO TID anxiety 11/15/23 11/15/23 History ipratropium 0.5 mg-albuterol 3 mg 3 ml inhalation Q6H breathting 11/15/23 11/15/23 History (2.5 mg base)/3 mL nebulization soln acetaminophen 325 mg tablet 650 mg (2 x 325 mg) PO Q4H PRN PRN 11/18/23 Unknown Rx Fever, pain 1-04/13 #0 tabs dextromethorphan-guaifenesin 30 2 tab PO BID cough 7 days #28 tabs 11/18/23 Unknown Rx mg-600 mg tablet extended [id number] hr (Mucinex DM) sennosides 8.6 mg-docusate sodium 2 tab PO BID PRN PRN Constipation 11/18/23 Unknown Rx 50 mg tablet (Stool #0 tabs Softener-Stimulant Laxative) potassium chloride 20 mEq 20 meq PO BID supplement 01/28/24 Unknown History tablet,extended release(part/cryst) (Klor-Con M) L.acidophil,salivari-Bifido 1 cap PO BID probiotic #0 caps 03/08/24 Unknown Rx bifidum-Strep thermoph 175 mg capsule nystatin 100,000 unit/mL oral 5 ml mucous membrane TID 03/24/24 Unknown Rx suspension inflammation #250 mL alprazolam 0.5 mg tablet 0.5 mg PO TID PRN PRN 05/01/24 Unknown Rx Anxiety/Agitation #20 tabs levofloxacin 750 mg tablet 750 mg PO DAILY 7 days #7 tabs 05/01/24 Unknown Rx potassium, sodium phosphates 280 1 packet PO BID #20 ea 05/01/24 Unknown Rx mg-160 mg-250 mg oral powder packet prednisone 20 mg tablet 40 mg (2 x 20 mg) PO DAILY 5 days 05/01/24 Unknown Rx #10 tabs duloxetine 60 mg capsule,delayed 60 mg PO DAILY 05/15/24 Unknown History release gabapentin 300 mg capsule 300 mg PO QHS 05/15/24 Unknown History zolpidem 10 mg tablet 10 mg PO QHS 05/15/24 Unknown History Allergy/AdvReac Type Severity Reaction Status Date / Time tetanus and diphtheria Allergy Hives Verified 05/15/24 14:37 toxoids (tetanus & diphtheria toxoids) Family History Sister Cancer lung Father Cancer lung Mother Cancer lung Surgical History S/P emergency tracheotomy for assistance in breathing History of tracheostomy S/P percutaneous endoscopic gastrostomy (PEG) tube placement History of left heart catheterization (06/17/21) History of bilateral cataract extraction Hx of appendectomy H/O: section History of lumpectomy History of cholecystectomy Social History household members: spouse Smoking Status: Former smoker how long ago did patient quit smokin, 1pk/day second hand exposure: Yes alcohol intake: former substance use type: does not use what type of physical activity do you participate in: walking frequency: daily EXAM Physical Exam Const Vital Signs: 05/15/24 14:34 05/15/24 14:36 05/15/24 14:36 Temperature 96.8 F L 96.8 F L 96.8 F L Temperature Source Temporal Temporal Temporal Pulse Rate 132 H 132 H 132 H Respiratory Rate 24 H 24 H 24 H Respiratory Pattern Blood Pressure 102/64 102/64 102/64 Blood Pressure Mean 76 76 76 Pulse Ox 83 83 83 Oxygen Delivery Method Nasal Cannula Nasal Cannula Nasal Cannula Oxygen Flow Rate (L/min) 4 4 4 Fraction of Inspired Oxygen (FIO2) 05/15/24 15:15 05/15/24 15:15 Temperature Temperature Source Pulse Rate 93 105 H Respiratory Rate 20 H 15 Respiratory Pattern Tachypnea Normal Blood Pressure Blood Pressure Mean Pulse Ox 99 Oxygen Delivery Method Oxygen Flow Rate (L/min) Fraction of Inspired Oxygen (FIO2) 35 MDM MDM MDM Narrative Medical decision making narrative: 68-year-old female with history of severe COPD status post tracheostomy on 3 L baseline presents for evaluation of worsening shortness of breath. On presentation patient is tachycardic into the 130s, active tachypneic anywhere from the mid 20s to mid 30s. She is dyspneic with increased work of breathing. She has copious secretions in her trach. Patient is 83% on 4 L nasal cannula. Patient's oxygenation was increased to 6 L nasal cannula without any improvement. She was deep suctioned without any improvement in her respiratory status or increase in work of breathing therefore patient was placed on the ventilator. Patient's work of breathing improved as well as her oxygenation. Differential diagnosis includes but is not limited to COPD exacerbation, pneumonia, CHF, UTI, electrolyte abnormality, viral illness, ACS. DuoNebs x 3, Solu-Medrol ordered for symptoms. Respiratory workup ordered. EKG and chest x-ray reviewed see below. Chest x-ray without any significant pneumonia. Suspect bronchitis/COPD exacerbation as of now we will treat with azithromycin. Sputum culture was obtained and sent. Unable to patient ABG therefore VBG was ordered. VBG was obtained after patient had been on the ventilator for a while. No hypercapnia. CBC with mild leukocytosis of 11.3 patient is at her baseline anemia of 9.1. BMP shows hyperkalemia 5.6. Patient does not have hyperkalemic changes the EKG. She has mild renal insufficiency with creatinine 1.10. Troponin 125. No ischemic changes such as ST elevation or depression seen on EKG. Patient not having any chest pain. Will get delta troponin. Will not start heparin at this time. BNP elevated at 740. Patient has not extensively fluid overloaded on exam or chest x-ray. Patient will warrant admission to the hospital. Patient was discussed with Dr. Colon who accepted, he agrees with no heparin at this time. UA pending at this time. Viral syndrome COVID, flu, RSV negative. Shortly after admission, patient became hypotensive with SBP's in the 80s. Fluids have yet to be given. Fluids are not running. Will add on blood cultures however patient receiving azithromycin and no further infection suspected at this time EKG: Interpreted by me/EM physician: EKG shows sinus tachycardia with a heart rate of 111. No acute ischemic changes such as ST elevation or depressions. Diagnostic: Interpreted by me/EM physician: Chest x-ray without pneumonia, effusion, pneumothorax, cardiomegaly Impression: 1. Acute on chronic hypoxic respiratory failure with tracheostomy requiring mechanical ventilation 2. COPD exacerbation 3. Elevated troponin 4. Renal insufficiency Lab Data Labs: Laboratory Results - last 24 hr 05/15/24 15:10 WBC 11.3 H RBC 3.40 L Hgb 9.1 L Hct 32.0 L MCV 94.1 MCH 26.8 L MCHC 28.4 L RDW Std Deviation 52.7 H RDW Coeff of Deonte 15.4 H Plt Count 201 MPV 10.8 Immature Gran % (Auto) 1.200 H Neut % (Auto) 71.6 H Lymph % (Auto) 10.2 L [place] % (Auto) 15.0 H Eos % (Auto) 1.3 Baso % (Auto) 0.7 Absolute Neuts (auto) 8.1 H Absolute Lymphs (auto) 1.15 Nucleated RBC % 0.5 Sodium 137 Potassium 5.6 H Chloride 98 Carbon Dioxide 34.0 H Anion Gap 5 BUN 19 H Creatinine 1.10 H Est GFR (MDRD) Af Amer 63 Est GFR (MDRD) Non-Af 52 L BUN/Creatinine Ratio 17.3 Glucose 117 H Calcium 8.9 Troponin I High Sens 125 H* B-Natriuretic Peptide 740.7 H ABG Data ABG results: ABG 05/15/24 15:33 Specimen Type GÉNESIS Sample Site Not entered O2 % 35.0 VBG pH 7.56 H VBG pO2 114 H VBG HCO3 37 H VBG Total CO2 38 H VBG O2 Sat (Calc) 99 H VBG Base Excess 14 H POC Mix VBG pCO2 Pt Tmp 41.3 Respiration Rate 14 O2 Delivery Device Adult Vent Tidal Volume 400.0 POC PEEP 5 Discharge Plan Triage Chief Complaint: Shortness of Breath ED Provider: Colin Colby Dx/Rx/DC Orders Prescriptions: No Action atorvastatin 40 mg tablet 40 mg PO QHS MDD 40 metoprolol succinate 25 mg tablet extended release 24 hr 25 mg PO DAILY MDD 25 aripiprazole [Abilify] 2 mg tablet 2 mg PO .daily QHS MDD 2mg albuterol sulfate 90 mcg/actuation HFA aerosol inhaler 2 inh inhalation Q4H Qty: 8.5 11RF albuterol sulfate 2.5 mg /3 mL (0.083 %) solution for nebulization 2.5 mg inhalation Q2H PRN PRN (Reason: Dyspnea, wheezing) Qty: 180 6RF Trelegy Ellipta 100-62.5-25 mcg blister with device 1 inh INHALATION DAILY 30 Days Qty: 60 6RF nystatin 100,000 unit/mL suspension 5 ml mucous membrane TID Qty: 250 1RF Rx Instructions: swish and swallow 5 cc three times per day for 10 days pantoprazole [Protonix] 40 mg Tablet,Delayed Release (Dr/Ec) 40 mg PO DAILY cholecalciferol (vitamin D3) [Vitamin D3] 25 mcg (1,000 unit) Tablet 25 mcg PO DAILY phenytoin 100 mg/4 mL Suspension 100 mg PO Q8 30 Days Qty: 360 2RF furosemide 20 mg tablet 20 mg PO BIDCM MDD 40 duloxetine 30 mg capsule,delayed release(DR/EC) 60 mg PO DAILY MDD 60 mirtazapine 7.5 mg tablet 7.5 mg PO QHS Qty: 30 0RF potassium chloride [Klor-Con M20] 20 mEq tablet,ER particles/crystals 20 meq PO BID prednisone 20 mg Tablet 40 mg PO DAILY 5 Days Qty: 10 0RF alprazolam 0.5 mg Tablet 0.5 mg PO TID PRN PRN (Reason: Anxiety/Agitation) Qty: 20 0RF levofloxacin 750 mg Tablet 750 mg PO DAILY 7 Days Qty: 7 0RF potassium, sodium phosphates 280-160-250 mg Powder In Packet 1 packet PO BID Qty: 20 0RF gabapentin 300 mg capsule 300 mg PO QHS zolpidem 10 mg tablet 10 mg PO QHS duloxetine 60 mg capsule,delayed release(DR/EC) 60 mg PO DAILY aspirin [Adult Aspirin Regimen] 81 mg tablet,delayed release (DR/EC) 81 mg PO DAILY ipratropium-albuterol 0.5 mg-3 mg(2.5 mg base)/3 mL solution for nebulization 3 ml inhalation Q6H Rx Instructions: EVERY 6 HOURS WHILE AWAKE hydroxyzine pamoate 25 mg capsule 25 mg PO TID escitalopram oxalate 20 mg tablet 20 mg PO DAILY acetaminophen 325 mg Tablet 650 mg PO Q4H PRN PRN (Reason: Fever, pain 1-04/13) Qty: 0 0RF sennosides-docusate sodium [Stool Softener-Stimulant Laxat] 8.6-50 mg Tablet 2 tab PO BID PRN PRN (Reason: Constipation) Qty: 0 0RF Mucinex DM 30-600 mg Tablet Extended Release 12 Hr 2 tab PO BID 7 Days Qty: 28 0RF L.acidoph,saliva-B.bif-S.therm 175 mg Capsule 1 cap PO BID Qty: 0 0RF Primary Care Provider: Maryam Pineda Referrals: Maryam Pineda MD [Primary Care Provider] - Print Language: Italian
[2024-05-15 15:38] LABS: Blood Gas Specimen Type VEN; O2 Delivery Device Adult Vent; PEEP 5; RR 14; SITE Not entered; VBG BASE EXCESS 14 mmol/L (-1.0-3.5); VBG Bicarbonate 37 mmol/L (22-26); VBG PO2 114 mmHg (25-40); VBG SO2 99 % (50-70); VBG TCO2 38 mmol/L (23-33); VBG pCO2 41.3 mmHg (41-51); VBG pH 7.56 (7.32-7.42)
[2024-05-15 15:41] LABS: Absolute Lymphocyte Count 1.15 X10^3/uL (0.83-4.51); Absolute Neutrophil Count 8.1 X10^3/uL (2.0-7.7); Basophil# 0.08 X10^3/uL; Basophil% 0.7 % (0-1); Eosinophil# 0.15 X10^3/uL; Eosinophils% 1.3 % (0-5); Hemoglobin 9.1 g/dL (12.0-15.0); Lymphocyte # 1.15 X10^3/ul (0.83-4.51); Lymphocyte % 10.2 % (19-41); Mean Corp Hgb Conc 28.4 g/dL (32-36); Mean Corpuscular Hgb 26.8 pg (27.0-32.0); Mean Corpuscular Volume 94.1 fL (81-99); Mean Platelet Vol. 10.8 fl (6.2-12.0); Monocyte# 1.69 X10^3/uL; NRBC Flagged by Analyzer 0.5 % (0-5); Neutrophil % 71.6 % (47-70); POSITIVE DIFFERENTIAL YES; RBC Distribution Width CV 15.4 % (11.6-14.6); RBC Distribution Width SD 52.7 fl (35.1-43.9); White Blood Count 11.3 K/mm3 (4.4-11.0)
[2024-05-15 15:45] LABS: Differential Indicated SCAN CRITERIA MET
[2024-05-15 16:01] LABS: Anion Gap 5 (5-15); BUN 19 mg/dL (7-18); BUN/Creat Ratio 17.3 RATIO (10-20); Calcium,Total 8.9 mg/dL (8.5-10.1); Chloride 98 mmol/L (98-107); EST Glomerular Filtration Rate 52 mL/min (>60); Est Glom Filt Rate - Afr Amer 63 mL/min (>60); Glucose 117 mg/dL (74-106); Potassium 5.6 mmol/L (3.5-5.1); Sodium Level 137 mmol/L (136-145); Troponin-I HS 125 pg/mL (3.0-54.0)
[2024-05-15 16:14] LABS: BNP,B-Type NATRIURETIC PEPTIDE 740.7 pg/mL (0-100)
--- NOTE | 2024-05-15 16:14 | HP.PCM.HOS_ITS ---
HPI - General General Date of Admission: 05/15/24 Date of Service: 05/15/24 Chief Complaint: Worsening shortness of breath HPI Narrative MARCO MAY, is a 68 F who presented to [facility] ED on 05/15/2024 with worsening shortness of breath. Patient has had multiple admissions here over the past few years and follows with [place] [facility]. She had a prolonged hospitalization in 06/2022-07/2022 with respiratory failure and required tracheostomy and PEG tube placement. PEG tube is since been removed but tracheostomy is still in place. She last saw pulmonology in the office on 03/24. She wears 3 L nasal cannula at baseline currently. She should be using noninvasive ventilator at night at home but has had multiple admissions with hypercapnic respiratory failure and her compliance to noninvasive ventilation is questionable. She is also on triple therapy for COPD. There was discussion during that office visit about tracheostomy decannulation but ultimately this was not done. She was hospitalized here most recently from 04/29-05/01 for hypercapnic respiratory failure and suspected pneumonia. She presented then with altered mental status and was found to have a pCO2 of 109 with pH 7.24. She was on the ventilator initially and placed in the ICU, but she improved back to her baseline fairly quickly. Her sputum culture results were positive for Pseudomonas and she was discharged on a 7-day course of Levaquin for this. Patient presented today with her brother who provided most of the history. Patient has had increased secretions over the past few days requiring more suction through the tracheostomy tube, and then this morning she became acutely more short of breath with increased work of breathing. Was noted that she was using more nebulizer treatments at home with little relief. On arrival to the ED patient did have hypoxia with increased work of breathing and was placed on the ventilator for this. Had significant improvement in work of breathing on the ventilator at low oxygen requirement. Chest x-ray showed COPD changes with possible small left lower lobe infiltrate but on my read appeared similar to previous chest x-ray from 04/29 that was largely benign. She was mildly hypotensive but otherwise hemodynamically stable. Her blood pressure improved with IV fluid resuscitation. Because of her worsened hypoxia and need for the ventilator, hospitalist was contacted for admission. I saw the patient at bedside in the ED. Patient was laying back comfortably in bed and breathing comfortably on the ventilator. Respiratory therapy was in the room with me and noted that patient did appear to have a significant cuff leak despite the trach balloon being inflated. Notably, patient's trach fell out on 04/24 and was replaced by the ED physician. Per that note, he attempted to pass a number 6 Shiley tracheostomy tube without success so a #4 Shiley was placed. Patient was pulling low tidal volumes per respiratory therapy and was able to intermittently talk to me while on the ventilator. She denied any current pain or discomfort and felt much more comfortable with her breathing on the ventilator. She denied any other acute concerns at this time. Will be admitted for further management. [facility] Medical History Hypothyroidism Former smoker BiPAP (biphasic positive airway pressure) dependence On home oxygen therapy Asthma Seizures Stroke/cerebrovascular accident Noncompliance Diastolic CHF History of alcohol abuse Aspiration pneumonia due to gastric secretions Carcinoma in situ of breast Benign neoplasm of colon Takotsubo cardiomyopathy (06/17/21) Ischemic cerebrovascular accident (CVA) (02/06/17) Non-rheumatic mitral regurgitation Anxiety and depression Non-ischemic cardiomyopathy Essential (primary) hypertension Secondary pulmonary arterial hypertension Chronic anemia GERD (gastroesophageal reflux disease) TIO (obstructive sleep apnea) History of non-ST elevation myocardial infarction (NSTEMI) (02/03/17) History of DVT of lower extremity (02/11/17) Insomnia Hyperlipidemia Daytime hypersomnia Hemorrhagic cerebrovascular accident (CVA) (02/09/17) COPD (chronic obstructive pulmonary disease) Home Medications ?Medication ?Instructions ?Recorded ?Last Taken ?Type cholecalciferol (vitamin D3) 25 25 mcg PO DAILY supplement 11/03/20 05/15/24 History mcg (1,000 unit) tablet (Vitamin D3) pantoprazole 40 mg tablet,delayed 40 mg PO DAILY GERD 11/03/20 05/15/24 History release (Protonix) aripiprazole 2 mg tablet (Abilify) 2 mg PO QHS mental health / sleep 08/25/22 05/14/24 History atorvastatin 40 mg tablet 40 mg PO QHS cholesterol 08/25/22 05/14/24 History metoprolol succinate 25 mg 25 mg PO DAILY blood pressure 08/25/22 05/15/24 History tablet,extended release 24 hr phenytoin 100 mg/4 mL oral 100 mg (4 mL) PO Q8 seizures 30 10/12/22 Unknown Rx suspension days #360 mL furosemide 20 mg tablet 20 mg PO BIDCM diuretic 11/11/22 05/15/24 History mirtazapine 7.5 mg tablet 7.5 mg PO QHS mental health #30 11/11/22 05/14/24 Rx tabs albuterol sulfate 2.5 mg/3 mL 2.5 mg (3 mL) inhalation Q2H PRN 06/30/23 11/15/23 Rx (0.083 %) solution for nebulization PRN Dyspnea, wheezing #180 mL albuterol sulfate 90 mcg/actuation 2 inh inhalation Q4H breathing 06/30/23 05/15/24 Rx aerosol inhaler #8.5 grams fluticasone fur. 100 mcg-umeclid 1 inh inhalation DAILY breathing 06/30/23 05/15/24 Rx 62.5 mcg-vilant 25 mcg 30 days #60 ea inhalat.powder (Trelegy Ellipta) aspirin 81 mg tablet,delayed 81 mg PO DAILY heart health 11/15/23 05/15/24 History release (Adult Aspirin Regimen) escitalopram oxalate 20 mg tablet 20 mg PO DAILY mental health 11/15/23 05/15/24 History hydroxyzine pamoate 25 mg capsule 25 mg PO TID anxiety 11/15/23 05/15/24 History ipratropium 0.5 mg-albuterol 3 mg 3 ml inhalation Q6H breathting 11/15/23 11/15/23 History (2.5 mg base)/3 mL nebulization soln acetaminophen 325 mg tablet 650 mg (2 x 325 mg) PO Q4H PRN PRN 11/18/23 Unknown Rx Fever, pain 1-04/13 #0 tabs dextromethorphan-guaifenesin 30 2 tab PO BID cough 7 days #28 tabs 11/18/23 Unknown Rx mg-600 mg tablet extended [id number] hr (Mucinex DM) sennosides 8.6 mg-docusate sodium 2 tab PO BID PRN PRN Constipation 11/18/23 Unknown Rx 50 mg tablet (Stool #0 tabs Softener-Stimulant Laxative) potassium chloride 20 mEq 20 meq PO BID supplement 01/28/24 Unknown History tablet,extended release(part/cryst) (Klor-Con M) L.acidophil,salivari-Bifido 1 cap PO BID probiotic #0 caps 03/08/24 05/15/24 Rx bifidum-Strep thermoph 175 mg capsule alprazolam 0.5 mg tablet 0.5 mg PO TID PRN PRN 05/01/24 05/15/24 Rx Anxiety/Agitation #20 tabs potassium, sodium phosphates 280 1 packet PO BID #20 ea 05/01/24 05/15/24 Rx mg-160 mg-250 mg oral powder packet duloxetine 60 mg capsule,delayed 60 mg PO DAILY 05/15/24 05/15/24 History release gabapentin 300 mg capsule 300 mg PO QHS 05/15/24 05/14/24 History zolpidem 10 mg tablet 10 mg PO QHS 05/15/24 05/14/24 History Allergy/AdvReac Type Severity Reaction Status Date / Time tetanus and diphtheria Allergy Hives Verified 05/15/24 14:37 toxoids (tetanus & diphtheria toxoids) Family History Sister Cancer lung Father Cancer lung Mother Cancer lung Surgical History S/P emergency tracheotomy for assistance in breathing History of tracheostomy S/P percutaneous endoscopic gastrostomy (PEG) tube placement History of left heart catheterization (06/17/21) History of bilateral cataract extraction Hx of appendectomy H/O: section History of lumpectomy History of cholecystectomy Social History household members: spouse Smoking Status: Former smoker how long ago did patient quit smokin, 1pk/day second hand exposure: Yes alcohol intake: former substance use type: does not use what type of physical activity do you participate in: walking frequency: daily ROS Constitutional Constitutional: Reports fatigue; Denies chills, fever(s) or weakness Cardiovascular Cardiovascular: Denies chest pain Respiratory/Chest Respiratory/Chest: Reports cough; Denies shortness of breath at rest, shortness of breath with exertion or wheezing Gastrointestinal Gastrointestinal: Denies abdominal pain Musculoskeletal Musculoskeletal: Denies arthralgias or myalgias Vital Signs Vital Signs Vital Signs: 05/15/24 14:34 05/15/24 14:36 05/15/24 14:36 Temperature 96.8 F L 96.8 F L 96.8 F L Temperature Source Temporal Temporal Temporal Pulse Rate 132 H 132 H 132 H Respiratory Rate 24 H 24 H 24 H Respiratory Pattern Blood Pressure 102/64 102/64 102/64 Blood Pressure Mean 76 76 76 Pulse Ox 83 83 83 Oxygen Delivery Method Nasal Cannula Nasal Cannula Nasal Cannula Oxygen Flow Rate (L/min) 4 4 4 Fraction of Inspired Oxygen (FIO2) 05/15/24 15:15 05/15/24 15:15 Temperature Temperature Source Pulse Rate 93 105 H Respiratory Rate 20 H 15 Respiratory Pattern Tachypnea Normal Blood Pressure Blood Pressure Mean Pulse Ox 99 Oxygen Delivery Method Oxygen Flow Rate (L/min) Fraction of Inspired Oxygen (FIO2) 35 Physical Exam Const alert, oriented x3, no apparent distress and average body habitus Constitutional Narrative: Elderly female, chronically ill-appearing, mildly fatigued appearing, breathing comfortably with ventilator connected to trachea, otherwise laying back comfortably in bed, in no acute distress. General Appearance: cooperative and comfortable HEENT normocephalic, head/scalp atraumatic, hearing grossly normal bilaterally and nasal mucous membranes and turbinates normal Eyes PERRL, EOMs intact bilaterally and conjunctivae normal Neck full ROM Neck Narrative: Tracheostomy in place, site appears clean and dry. Cuff leak noted. Chest inspection of chest normal Resp normal respiratory effort and no use of accessory muscles Resp Narrative: Breathing comfortably on ventilator connected to tracheostomy with low oxygen requirements. Good air movement bilaterally, no wheezing or crackles noted. Cardio regular rate, regular rhythm, no murmurs and peripheral pulses 2+ throughout GI normal to inspection, nondistended, normoactive bowel sounds, soft to palpation, non-tender and non-distended Back/Spine normal ROM Extremity normal to inspection, full ROM and no pedal edema Skin no rashes or lesions noted Psych mental status grossly normal Results Lab / Micro Data 05/15/24 15:10 05/15/24 15:10 Labs: Laboratory Results - last 24 hr 05/15/24 15:10: WBC 11.3 H, RBC 3.40 L, Hgb 9.1 L, Hct 32.0 L, MCV 94.1, MCH 26.8 L, MCHC 28.4 L, RDW Std Deviation 52.7 H, RDW Coeff of Deonte 15.4 H, Plt Count 201, MPV 10.8, Immature Gran % (Auto) 1.200 H, Neut % (Auto) 71.6 H, Lymph % (Auto) 10.2 L, Beltrami % (Auto) 15.0 H, Eos % (Auto) 1.3, Baso % (Auto) 0.7, A bsolute Neuts (auto) 8.1 H, Absolute Lymphs (auto) 1.15, Nucleated RBC % 0.5, Sodium 137, Potassium 5.6 H, Chloride 98, Carbon Dioxide 34.0 H, Anion Gap 5, B UN 19 H, Creatinine 1.10 H, Est GFR (MDRD) Af Amer 63, Est GFR (MDRD) Non-Af 52 L, BUN/Creatinine Ratio 17.3, Glucose 117 H, Calcium 8.9, Troponin I High Sens 125 H*, B-Natriuretic Peptide 740.7 H ABG Data ABG results: ABG 05/15/24 15:33 Specimen Type GÉNESIS Sample Site Not entered O2 % 35.0 VBG pH 7.56 H VBG pO2 114 H VBG HCO3 37 H VBG Total CO2 38 H VBG O2 Sat (Calc) 99 H VBG Base Excess 14 H POC Mix VBG pCO2 Pt Tmp 41.3 Respiration Rate 14 O2 Delivery Device Adult Vent Tidal Volume 400.0 POC PEEP 5 Assessment & Plan Assessment/Plan (1) Acute and chronic respiratory failure: PLAN: Plan Patient is a 68-year-old female who presented [facility] ED on 05/15/2024 with worsening shortness of breath. 1. Acute on chronic hypoxic respiratory failure with tracheostomy in place; concern for recurrent pneumonia; tracheostomy cuff leak ? Admit under inpatient status to ICU. Pulmonology consulted. Patient on 3 L nasal cannula at home and noninvasive ventilation at night. Was hypoxic on 6 L nasal cannula on arrival to ED and was placed on ventilator via tracheostomy. Chest x-ray fairly benign. Have concern that patient may have had transient mucous plugging causing significant worsening shortness of breath with hypoxia. Was treated with complete course of antibiotics for recent suspected Pseudomonas pneumonia and it seems less likely this pneumonia would have recurred. However, this cannot be ruled out. Will treat with IV Zosyn for now. Sputum culture and blood culture ordered. Will continue ventilator overnight and appreciate pulmonology recs tomorrow morning. Patient notably has significant cuff leak and may need tracheostomy exchange but will defer this to pulmonology. Continue home inhalers. N.p.o. status while on ventilator. 2. Elevated troponin ? Troponins 125 > 125 on admit. No ischemic EKG changes. No chest pain noted. Suspect elevated troponins are due to demand ischemia from mild hypotension from recent poor p.o. intake. No further management needed. 3. Mild GUME ? Creatinine 1.10 on admit, baseline 0.6-0.8. Suspect prerenal etiology. Given IV fluid resuscitation in the ED, follow-up a.m. BMP and monitor urine output. 4. Mild hyperkalemia ? Potassium 5.6 on admit. No EKG changes noted. Suspect due to mild GUME. Follow-up a.m. BMP. 5. Elevated lactic acid ? Lactic acid 2.8 on admit. No acidosis present. Blood pressure mildly low in ED, improved with IV fluid resuscitation. No need to repeat lactic acid at this time. 6. Debility ? PT/OT/case management consulted. Patient lives at home with significant other and has other family available to help her. Has required correction stays in the past but most recently has gone home on past few discharges. Likely will return home after this discharge as well. Chronic medical conditions: ? Chronic anemia: Hemoglobin 9.1 on admit, baseline around 8-9. Stable. ? HFrEF, history of CAD, hyperlipidemia, history of CVA: Last echo on 03/04/2024 showed an EF of 45 to 50%, mild global LV hypokinesis, moderate eccentric MR. BNP 740 on this admit, appears stable from previous and no signs of volume overload on exam. Continue home aspirin and statin once able to resume p.o. intake. Holding home Lasix and Toprol for now, restart when able. ? Anxiety/depression/insomnia: Stable. Continue home aripiprazole at night, duloxetine, escitalopram, gabapentin, mirtazapine and alprazolam as needed once able to resume p.o. intake. ? Seizure disorder: Is reportedly on phenytoin 3 times daily but notably has not had this filled in the last year per pharmacy. Will hold at this time. ? GERD: Continue home PPI. DVT prophylaxis: Lovenox CODE STATUS: Full code, verified Expected disposition: TBD Total clinical time spent by myself addressing the patient's medical issues, reviewing all the data, and collaborating with patient's care team: 75 minutes. Charges/Coding Visit Charges Inpatient E&M: 15289 Init Hosp L3
[2024-05-15 16:25] LABS: Anisocytosis 1+; Hypochromasia 2+; Platelet Estimate ADEQUATE (ADEQ)
[2024-05-15 16:26] LABS: Pathologist Review May foll
[2024-05-15] MEDS: Azithromycin 500 MG in Dextrose 5%-Water (250mL Bag) 250 ML 250 MG IV (16:27)
--- NOTE | 2024-05-15 16:29 | ED.RN ---
DR LARIOS AWARE OF DECREASED BP. FLUID BOLUS ORDERED AND INITATED.
[2024-05-15 16:38] LABS: Lactic Acid 2.8 mmol/L (0.4-1.9)
[2024-05-15] MEDS: 0.9% Normal Saline (500mL Bag) 500 ML 999 ML IV (16:38)
[2024-05-15 16:46] LABS: Mucous, Urine 0 SEEN /hpf (<or=2+)
[2024-05-15 16:51] LABS: Color, Urine Amber (Yellow); Glucose, Dipstick Normal (Normal); Ketone-Dipstick 5 mg/dl (Negative); Leukocyte Esterase-Dipstick 25 /ul (Negative); Nitrite-Dipstick Positive (Negative); Occult Blood-Urine 10 /ul (Negative); Protein-Dipstick 100 mg/dl (Negative); Urine Clarity Clear (Clear); Urine Urobilinogen 4 mg/dl (Normal)
[2024-05-15 16:52] LABS: Urine Bilirubin Dipstick 1 mg/dL (Negative)
--- NOTE | 2024-05-15 17:05 | ED.RN ---
Luiza Coughing but able to speak with her trac capped she continued to cough asked for oxygen to be increased and started to struggle in the bed, spo2 dropped into 60s. RTT in room non rebreather placed, deep suction performed with small amount of thick white removed. breathing improved. Doctor ordered for vent placed on trach to improve work of breathing.
[2024-05-15] MEDS: Piperacil/Tazobactam 4.5 GM in 0.9% Normal Saline (100mL MB+) 100 ML IV (17:15)
[2024-05-15 17:32] LABS: Bacteria 1+ /hpf (None Seen); Calcium Oxalate Crystals Ur RARE /hpf (<or=2+); Red Blood Cells-Urine 0-5 SEEN /hpf (0-5); Renal Epithelial Cells 0-5 SEEN /hpf (0-5); Squamous Epithelial Cells - UA 0-5 SEEN /hpf (5-10); White Blood Cells 0-5 SEEN /hpf (0-5)
[2024-05-15 17:43] LABS: Troponin-I HS 125 pg/mL (3.0-54.0)
--- NOTE | 2024-05-15 18:11 | CASEMGMT ---
Care Management Face to Face with patient for initial transition planning/care coordination assessment.? This program writer introduced self and role at [facility]. Patient lying in bed, alert and oriented, but patient was on a ventilator through her trach and unable to communicate fully as a result. Patient willing to participate in assessment and is able to answer most questions.? Care providers, pharmacy, and demographics verified. Admitting Diagnosis: acute chronic respiratory failure Other diagnosis history: pneumonia, sepsis, encephalopathy, heart failure PCP: Maryam Card Specialists: none mentioned. Per previous assessment on 05/01/24, patient sees both a silver miner blasting (Rodney) and a zinc etcher (JOHN). Preferred Pharmacy: [facility] ? [place] ? Insurance: [employer] Medicare Prescription Benefit:?yes Living Will/HPOA: yes, patient believes they are on file here. However, this program writer is unable to see them. Per her previous assessment on 05/01/24, patient had identified her daughter, Ameena. LNOK: patient says she has 3 children that live locally, [place], [place], and [facility]. Living Arrangements: 1 story home with one step to enter. Patient states she lives by herself and is independent. Per her previous assessment on 05/01/24, patient's brother was completing trach care for patient. Transportation: patient states she drives herself. DME: patient states she receives oxygen through [employer] and a pulse ox. She reports having a nebulizer, a shower chair, and a walker. HHC/rehab: Patient reported knowing she has been to rehab and received HHC in the past, but patient could not remember where. Per previous assessment on 05/01/24, patient has been to [facility] and [facility] in the past for rehab, as well as received HHC through [facility] and [facility]. Community Resources: none reported. Patient goals: Patient wishes to discharge home with HHC. Patient states no further needs at this time. ? Disposition Plan: intent to discharge home with HHC and family support once medically ready. RN CM/SW to follow for discharge planning needs that may arise. Discuss patient bringing in advanced directives as none are seen on file here. Saray Jay, CUSTOMER SERVICES MANAGER, [employer]
[2024-05-15 20:13] LABS: Reflex Lactate? Y
[2024-05-15 21:46] LABS: Lactic Acid 1.2 mmol/L (0.4-1.9)
[2024-05-15] MEDS: Piperacil/Tazobactam 3.375 GM in 0.9% Normal Saline (50mL MB+) 50 ML IV (22:16)
[2024-05-15 22:41] LABS: Troponin-I HS 123 pg/mL (3.0-54.0)
[2024-05-16] VITALS (32 sets, daily range): BP systolic 110–159; BP diastolic 49–92; PULSE 63–105; RESP 16–24; TEMP 36.2–36.4; O2SAT 92–100; BMI 25.4
[2024-05-16] MEDS: Albuterol 2.5 MG/3 ML VIAL.NEB. INHALATION
[2024-05-16 05:03] LABS: Hematocrit 30.3 % (37-47); Mean Corp Hgb Conc 29.7 g/dL (32-36); Mean Corpuscular Hgb 26.8 pg (27.0-32.0); Mean Corpuscular Volume 90.2 fL (81-99); Mean Platelet Vol. 10.7 fl (6.2-12.0); Platelet Count 169 K/mm3 (150-450); RBC Distribution Width CV 15.2 % (11.6-14.6); Red Blood Count 3.36 M/mm3 (4.2-5.4)
[2024-05-16 05:19] LABS: Anion Gap 6 (5-15); BUN 20 mg/dL (7-18); Calcium,Total 9.3 mg/dL (8.5-10.1); Chloride 100 mmol/L (98-107); Creatinine, Serum 0.95 mg/dL (0.55-1.02); EST Glomerular Filtration Rate 62 mL/min (>60); Est Glom Filt Rate - Afr Amer 75 mL/min (>60); Glucose 96 mg/dL (74-106); Magnesium 1.9 mg/dL (1.6-2.6); Potassium 4.1 mmol/L (3.5-5.1); Sodium Level 140 mmol/L (136-145)
[2024-05-16 05:25] LABS: Phosphorus 1.7 mg/dL (2.5-4.9)
[2024-05-16] MEDS: 0.9% Saline Lock 10 ML Syringe IV (05:25)
[2024-05-16] MEDS: Piperacil/Tazobactam 3.375 GM in 0.9% Normal Saline (50mL MB+) 50 ML IV ×3 (05:25→21:07)
[2024-05-16 05:35] LABS: Blood Gas Specimen Type VEN; O2 Delivery Device Adult Vent; PEEP 5; RR 16; SITE Not entered; VBG BASE EXCESS 15 mmol/L (-1.0-3.5); VBG Bicarbonate 39 mmol/L (22-26); VBG PO2 30 mmHg (25-40); VBG SO2 59 % (50-70); VBG TCO2 40 mmol/L (23-33); VBG pCO2 54.1 mmHg (41-51); VBG pH 7.46 (7.32-7.42)
[2024-05-16] MEDS: Budesonide Respules 0.5 MG/2 ML AMPUL.NEB. INHALATION (07:23)
[2024-05-16] MEDS: Ipratropium/Albuterol Sulfate 3 ML AMPUL.NEB INHALATION ×3 (07:23→19:25)
--- NOTE | 2024-05-16 08:10 | EX.PCM.CONCC ---
Assessment & Plan Assessment/Plan (1) Acute on chronic respiratory failure with hypoxia and hypercapnia: PLAN: Plan RECOMMENDATIONS: 1. Check arterial blood gas. 2. Okay to wean from ventilatory support and transition to nasal cannula oxygen. 3. Okay to utilize Passy-Laurel valve. 4. Continue antimicrobials along with scheduled bronchodilators and steroids as ordered. 5. Continue appropriate DVT prophylaxis. 6. Obtain echocardiogram. 7. Dietary advancement as tolerated. 8. Check urine culture. IMPRESSIONS: 1. Acute on chronic combined respiratory failure The patient has known end-stage COPD and chronic hypoxemic respiratory failure, along with baseline CO2 retention. In addition, she has a known history of noncompliance with her prescribed outpatient noninvasive ventilator. She was recently admitted to the hospital with pseudomonal pneumonia. Unfortunately, due to her history of noncompliance, her DME provider is no longer willing to provide her with any supplies. At presentation, chest imaging demonstrated a vague left lower lobe infiltrate. Therefore, the patient was restarted on antimicrobial therapy. In addition, her urine analysis was suggestive of possible UTI. Therefore, I plan to add on a urine culture as well. Will plan to obtain follow-up blood gas this morning. However, the patient can be weaned from ventilatory support to supplemental oxygen. Okay to utilize Passy-Clau valve per outpatient regimen. 2. History of end-stage COPD/chronic hypoxemic respiratory failure/obstructive sleep apnea/frequent COPD exacerbations The patient has a known history of end-stage COPD with known outpatient medical noncompliance. She will be maintained on scheduled bronchodilators for now. Management as noted above. 3. History of hemorrhagic CVA/former tobacco dependency/history of cardiomyopathy/anxiety/depression Complicates care, management, recovery and prognosis. Physical therapy to work with the patient. TIME: 38 minutes of critical care time, independent of procedures, was spent addressing the patient's acute on chronic combined respiratory failure, review of all data and collaboration with the care team. HPI Consult Data Date of Consult: 05/16/24 HPI Narrative Reason for Consultation: Acute on chronic combined respiratory failure HPI Narrative: The patient is a 68-year-old female, with a history as outlined below, who presented to the emergency department on May 15 with reported shortness of breath. The patient has a known medical history of frequent hospitalizations secondary to medical noncompliance. In fact, she was just discharged from the hospital on May 01 following a hospitalization for acute on chronic respiratory failure. The patient was last seen in our pulmonary medicine office at the end of March 2024. The patient has known chronic hypoxemic respiratory failure with a baseline oxygen requirement of 3 L/min and is status post prior tracheostomy. She has end-stage COPD on a triple therapy inhaler regimen on an outpatient basis. Due to her history of frequent COPD exacerbations, the patient was started on an astral noninvasive ventilator multiple years ago. However, the patient has been largely noncompliant with its use. During the patient's last hospitalization, she did grow pansensitive Pseudomonas from her sputum culture. On presentation to the emergency department, the patient was documented to be afebrile but was notably tachycardic and tachypneic. Initial laboratory evaluation revealed a white blood cell count of 11,000 with a hemoglobin of 9.1 g/dL. Chemistry profile was notable for a potassium of 5.6, bicarbonate of 34 and creatinine of 1.10. Lactate was elevated at 2.8. Troponin was increased at 125 with a BNP of 740. Urine analysis was positive for nitrites and leukocyte esterase. 1+ urine bacteria was noted. Chest x-ray demonstrated hyperinflated lungs with stable tracheostomy tube and possible left lower lobe infiltrate. The patient was subsequently started on antimicrobials and scheduled bronchodilators. She was initiated on ventilatory support via her tracheostomy and admitted to the medical intensive care unit for further management. This morning, the patient is alert and appropriately interactive. She readily admitted to me that she has been noncompliant with her noninvasive ventilator. Case management did reach out to her DME provider, who indicated that she was no longer eligible for supplies secondary to her history of noncompliance. [facility] Medical History Hypothyroidism Former smoker BiPAP (biphasic positive airway pressure) dependence On home oxygen therapy Asthma Seizures Stroke/cerebrovascular accident Noncompliance Diastolic CHF History of alcohol abuse Aspiration pneumonia due to gastric secretions Carcinoma in situ of breast Benign neoplasm of colon Takotsubo cardiomyopathy (06/17/21) Ischemic cerebrovascular accident (CVA) (02/06/17) Non-rheumatic mitral regurgitation Anxiety and depression Non-ischemic cardiomyopathy Essential (primary) hypertension Secondary pulmonary arterial hypertension Chronic anemia GERD (gastroesophageal reflux disease) TIO (obstructive sleep apnea) History of non-ST elevation myocardial infarction (NSTEMI) (02/03/17) History of DVT of lower extremity (02/11/17) Insomnia Hyperlipidemia Daytime hypersomnia Hemorrhagic cerebrovascular accident (CVA) (02/09/17) COPD (chronic obstructive pulmonary disease) Home Medications ?Medication ?Instructions ?Recorded ?Last Taken ?Type cholecalciferol (vitamin D3) 25 25 mcg PO DAILY supplement 11/03/20 05/15/24 History mcg (1,000 unit) tablet (Vitamin D3) pantoprazole 40 mg tablet,delayed 40 mg PO DAILY GERD 11/03/20 05/15/24 History release (Protonix) aripiprazole 2 mg tablet (Abilify) 2 mg PO QHS mental health / sleep 08/25/22 05/14/24 History atorvastatin 40 mg tablet 40 mg PO QHS cholesterol 08/25/22 05/14/24 History metoprolol succinate 25 mg 25 mg PO DAILY blood pressure 08/25/22 05/15/24 History tablet,extended release 24 hr phenytoin 100 mg/4 mL oral 100 mg (4 mL) PO Q8 seizures 30 10/12/22 Unknown Rx suspension days #360 mL furosemide 20 mg tablet 20 mg PO BIDCM diuretic 11/11/22 05/15/24 History mirtazapine 7.5 mg tablet 7.5 mg PO QHS mental health #30 11/11/22 05/14/24 Rx tabs albuterol sulfate 2.5 mg/3 mL 2.5 mg (3 mL) inhalation Q2H PRN 06/30/23 11/15/23 Rx (0.083 %) solution for nebulization PRN Dyspnea, wheezing #180 mL albuterol sulfate 90 mcg/actuation 2 inh inhalation Q4H breathing 06/30/23 05/15/24 Rx aerosol inhaler #8.5 grams fluticasone fur. 100 mcg-umeclid 1 inh inhalation DAILY breathing 06/30/23 05/15/24 Rx 62.5 mcg-vilant 25 mcg 30 days #60 ea inhalat.powder (Trelegy Ellipta) aspirin 81 mg tablet,delayed 81 mg PO DAILY heart health 11/15/23 05/15/24 History release (Adult Aspirin Regimen) escitalopram oxalate 20 mg tablet 20 mg PO DAILY mental health 11/15/23 05/15/24 History hydroxyzine pamoate 25 mg capsule 25 mg PO TID anxiety 11/15/23 05/15/24 History ipratropium 0.5 mg-albuterol 3 mg 3 ml inhalation Q6H breathting 11/15/23 11/15/23 History (2.5 mg base)/3 mL nebulization soln acetaminophen 325 mg tablet 650 mg (2 x 325 mg) PO Q4H PRN PRN 11/18/23 Unknown Rx Fever, pain 1-04/13 #0 tabs dextromethorphan-guaifenesin 30 2 tab PO BID cough 7 days #28 tabs 11/18/23 Unknown Rx mg-600 mg tablet extended [id number] hr (Mucinex DM) sennosides 8.6 mg-docusate sodium 2 tab PO BID PRN PRN Constipation 11/18/23 Unknown Rx 50 mg tablet (Stool #0 tabs Softener-Stimulant Laxative) potassium chloride 20 mEq 20 meq PO BID supplement 01/28/24 Unknown History tablet,extended release(part/cryst) (Klor-Con M) L.acidophil,salivari-Bifido 1 cap PO BID probiotic #0 caps 03/08/24 05/15/24 Rx bifidum-Strep thermoph 175 mg capsule alprazolam 0.5 mg tablet 0.5 mg PO TID PRN PRN 05/01/24 05/15/24 Rx Anxiety/Agitation #20 tabs potassium, sodium phosphates 280 1 packet PO BID #20 ea 05/01/24 05/15/24 Rx mg-160 mg-250 mg oral powder packet duloxetine 60 mg capsule,delayed 60 mg PO DAILY 05/15/24 05/15/24 History release gabapentin 300 mg capsule 300 mg PO QHS 05/15/24 05/14/24 History zolpidem 10 mg tablet 10 mg PO QHS 05/15/24 05/14/24 History Allergy/AdvReac Type Severity Reaction Status Date / Time tetanus and diphtheria Allergy Hives Verified 05/15/24 14:37 toxoids (tetanus & diphtheria toxoids) Family History Sister Cancer lung Father Cancer lung Mother Cancer lung Surgical History S/P emergency tracheotomy for assistance in breathing History of tracheostomy S/P percutaneous endoscopic gastrostomy (PEG) tube placement History of left heart catheterization (06/17/21) History of bilateral cataract extraction Hx of appendectomy H/O: section History of lumpectomy History of cholecystectomy Social History household members: spouse Smoking Status: Former smoker how long ago did patient quit smokin, 1pk/day second hand exposure: Yes alcohol intake: former substance use type: does not use what type of physical activity do you participate in: walking frequency: daily ROS ROS Narrative 10 systems were reviewed with pertinent positives as noted in the HPI above. Physical Exam Const alert and no apparent distress Constitutional Narrative: Chronically ill in appearance. General Appearance: cooperative HEENT normocephalic and head/scalp atraumatic HEENT Narrative: Stable tracheostomy site. Eyes PERRL, EOMs intact bilaterally and conjunctivae normal Neck supple General: trachea midline Chest inspection of chest normal Resp normal respiratory effort Auscultation: wheezes and diminished lung sounds Cardio regular rate and regular rhythm GI normal to inspection, nondistended, normoactive bowel sounds Extremity no clubbing, cyanosis or edema Skin no rashes or lesions noted Neuro CN's II-XII intact bilaterally and no focal motor deficits Psych cooperative and affect normal Lab / Micro Data 05/16/24 04:53 05/16/24 04:53 Labs: Laboratory Results - last 24 hr 05/15/24 15:10: WBC 11.3 H, RBC 3.40 L, Hgb 9.1 L, Hct 32.0 L, MCV 94.1, MCH 26.8 L, MCHC 28.4 L, RDW Std Deviation 52.7 H, RDW Coeff of Deonte 15.4 H, Plt Count 201, MPV 10.8, Immature Gran % (Auto) 1.200 H, Neut % (Auto) 71.6 H, Lymph % (Auto) 10.2 L, Bent % (Auto) 15.0 H, Eos % (Auto) 1.3, Baso % (Auto) 0.7, Absolute Neuts (auto) 8.1 H, Absolute Lymphs (auto) 1.15, Nucleated RBC % 0.5, Diff Path Review May foll, Platelet Estimate ADEQUATE, Hypochromasia 2+, Anisocytosis 1+, Sodium 137, Potassium 5.6 H, Chloride 98, Carbon Dioxide 34.0 H, Anion Gap 5, BUN 19 H, Creatinine 1.10 H, Est GFR (MDRD) Af Amer 63, Est GFR (MDRD) Non-Af 52 L, BUN/Creatinine Ratio 17.3, Glucose 117 H, Calcium 8.9, Troponin I High Sens 125 H*, B-Natriuretic Peptide 740.7 H 05/15/24 15:20: Lactic Acid 2.8 H* 05/15/24 16:39: Urine Color Lauryn, Urine Clarity Clear, Urine pH 5.0, Ur Specific [place] 1.030, Urine Protein 100 H, Urine Glucose (UA) Normal, Urine Ketones 5 H, Urine Occult Blood 10 H, Urine Nitrite Positive H, Urine Bilirubin 1 H, Urine Urobilinogen 4 H, Ur Leukocyte Esterase 25 H, Urine RBC 0-5 SEEN, Urine WBC 0-5 SEEN, Ur Squamous Epith Cells 0-5 SEEN, Ur Renal Epithelial Cell 0-5 SEEN, Calcium Oxalate Crystal RARE, Urine Bacteria 1+, Urine Mucus 0 SEEN 05/15/24 17:10: Troponin I High Sens 125 H* 05/15/24 21:00: Lactic Acid 1.2, Troponin I High Sens 123 H* 05/16/24 04:53: WBC 9.0, RBC 3.36 L, Hgb 9.0 L, Hct 30.3 L, MCV 90.2, MCH 26.8 L, MCHC 29.7 L, RDW Std Deviation 50.0 H, RDW Coeff of Deonte 15.2 H, Plt Count 169, MPV 10.7, Sodium 140, Potassium 4.1, Chloride 100, Carbon Dioxide 34.0 H, Anion Gap 6, BUN 20 H, Creatinine 0.95, Estim Creat Clear Calc 47.40, Est GFR (MDRD) Af Amer 75, Est GFR (MDRD) Non-Af 62, BUN/Creatinine Ratio 21.0 H, Glucose 96, Calcium 9.3, Phosphorus 1.7 L, Magnesium 1.9 Micro: Microbiology 05/15/24 15:23 Mucosa - Nose SARS-CoV-2, Influenza & RSV (PCR) - Final ABG Data ABG results: ABG 05/15/24 05/16/24 15:33 05:29 Specimen Type GÉNESIS GÉNESIS Sample Site Not entered Not entered O2 % 35.0 35.0 VBG pH 7.56 H 7.46 H VBG pO2 114 H 30 VBG HCO3 37 H 39 H VBG Total CO2 38 H 40 H VBG O2 Sat (Calc) 99 H 59 VBG Base Excess 14 H 15 H POC Mix VBG pCO2 Pt Tmp 41.3 54.1 H Respiration Rate 14 16 O2 Delivery Device Adult Vent Adult Vent Tidal Volume 400.0 400.0 POC PEEP 5 5 Imaging Radiology Impression Chest X-Ray 05/15/24 15:32 IMPRESSION: COPD. Possible left lower lobe infiltrate. Electronically Signed: Rayray Valencia MD at 17:14 EST , Charges/Coding Procedures Hospitalists Procedures: [id number] Critical Care 1st Hr
--- NOTE | 2024-05-16 09:53 | PCM.PN.HOSP ---
Subjective Subjective Awake this morning managing on CPAP settings through her tracheostomy no issues overnight Objective Data Objective Data Vital Signs: Vital Signs Temp Pulse Resp BP Pulse Ox O2 Del Method O2 Flow Rate 97.3 F L 87 18 152/72 H 96 Mechanical Ventilator 50 05/16/24 05:00 05/16/24 08:00 05/16/24 08:00 05/16/24 08:00 05/16/24 08:00 05/16/24 08:00 05/15/24 18:45 FiO2 25 05/16/24 08:00 Oxygen Flow Rate (L/min) 50 Oxygen Delivery Method Mechanical Ventilator Weight: 138 lb 10.732 oz Body Mass Index (BMI) 25.4 Intake & Output: Intake and Output for Last 24 Hours 05/15/24 05/16/24 05/17/24 03:59 03:59 03:59 Intake Total 905 / 905 50 / 50 Output Total 50 / 50 Balance 905 / 905 0 / 0 Lab / Micro Data 05/16/24 04:53 05/16/24 04:53 Labs: Laboratory Results - last 24 hr 05/15/24 15:10: WBC 11.3 H, RBC 3.40 L, Hgb 9.1 L, Hct 32.0 L, MCV 94.1, MCH 26.8 L, MCHC 28.4 L, RDW Std Deviation 52.7 H, RDW Coeff of Deonte 15.4 H, Plt Count 201, MPV 10.8, Immature Gran % (Auto) 1.200 H, Neut % (Auto) 71.6 H, Lymph % (Auto) 10.2 L, [place] % (Auto) 15.0 H, Eos % (Auto) 1.3, Baso % (Auto) 0.7, Absolute Neuts (auto) 8.1 H, Absolute Lymphs (auto) 1.15, Nucleated RBC % 0.5, Diff Path Review November, Platelet Estimate ADEQUATE, Hypochromasia 2+, Anisocytosis 1+, Sodium 137, Potassium 5.6 H, Chloride 98, Carbon Dioxide 34.0 H, Anion Gap 5, BUN 19 H, Creatinine 1.10 H, Est GFR (MDRD) Af Amer 63, Est GFR (MDRD) Non-Af 52 L, BUN/Creatinine Ratio 17.3, Glucose 117 H, Calcium 8.9, Troponin I High Sens 125 H*, B-Natriuretic Peptide 740.7 H 05/15/24 15:20: Lactic Acid 2.8 H* 05/15/24 16:39: Urine Color Lauryn, Urine Clarity Clear, Urine pH 5.0, Ur Specific [place] 1.030, Urine Protein 100 H, Urine Glucose (UA) Normal, Urine Ketones 5 H, Urine Occult Blood 10 H, Urine Nitrite Positive H, Urine Bilirubin 1 H, Urine Urobilinogen 4 H, Ur Leukocyte Esterase 25 H, Urine RBC 0-5 SEEN, Urine WBC 0-5 SEEN, Ur Squamous Epith Cells 0-5 SEEN, Ur Renal Epithelial Cell 0-5 SEEN, Calcium Oxalate Crystal RARE, Urine Bacteria 1+, Urine Mucus 0 SEEN 05/15/24 17:10: Troponin I High Sens 125 H* 05/15/24 21:00: Lactic Acid 1.2, Troponin I High Sens 123 H* 05/16/24 04:53: WBC 9.0, RBC 3.36 L, Hgb 9.0 L, Hct 30.3 L, MCV 90.2, MCH 26.8 L, MCHC 29.7 L, RDW Std Deviation 50.0 H, RDW Coeff of Deonte 15.2 H, Plt Count 169, MPV 10.7, Sodium 140, Potassium 4.1, Chloride 100, Carbon Dioxide 34.0 H, Anion Gap 6, BUN 20 H, Creatinine 0.95, Estim Creat Clear Calc 47.40, Est GFR (MDRD) Af Amer 75, Est GFR (MDRD) Non-Af 62, BUN/Creatinine Ratio 21.0 H, Glucose 96, Calcium 9.3, Phosphorus 1.7 L, Magnesium 1.9 Micro: Microbiology 05/15/24 17:42 Sputum, Expectorated/Coughed Gram Stain - Final 05/15/24 15:23 Mucosa - Nose SARS-CoV-2, Influenza & RSV (PCR) - Final ABG Data ABG results: ABG 05/15/24 05/16/24 15:33 05:29 Specimen Type GÉNESIS GÉNESIS Sample Site Not entered Not entered O2 % 35.0 35.0 VBG pH 7.56 H 7.46 H VBG pO2 114 H 30 VBG HCO3 37 H 39 H VBG Total CO2 38 H 40 H VBG O2 Sat (Calc) 99 H 59 VBG Base Excess 14 H 15 H POC Mix VBG pCO2 Pt Tmp 41.3 54.1 H Respiration Rate 14 16 O2 Delivery Device Adult Vent Adult Vent Tidal Volume 400.0 400.0 POC PEEP 5 5 Radiography Diagnostic Testing: Radiology Impression Chest X-Ray 05/15/24 15:32 IMPRESSION: COPD. Possible left lower lobe infiltrate. Electronically Signed: Rayray Valencia MD at 17:14 EST Reading Location ID and State: [address] [place] [address] Tel , Service support , Physical Exam Narrative General: Alert, Oriented x3, Cooperative, No apparent distress HEENT: Atraumatic, PERRLA, EOMI, Normocephalic Oral: Moist Mucosa Neck: Supple, No JVD, tracheostomy Lungs: Diminished, Normal air movement, scattered rhonchi, No wheeze, No rales Cardiovascular: Regular rate, Regular Rhythm, Normal S1, Normal S2, No murmurs Abdomen: Soft, Non Tender, Non-Distended, No Hepato-splenomegaly Extremities: No edema, Capillary Refill Less than 3 Seconds Skin: No rashes, No breakdown Musculoskeletal: No Tenderness to Palpation of Joints or Extremities Neurological: No focal neurological deficits, Motor Exam 5/5 strength throughout, Sensory exam intact to light touch and pain Psych/Mental Status: Normal Affect, Appropriate Assessment & Plan Assessment/Plan (1) Acute and chronic respiratory failure: PLAN: Plan 1. Acute on chronic hypoxic respiratory failure with tracheostomy in place; concern for recurrent pneumonia; tracheostomy cuff leak ? Admit under inpatient status to ICU. Pulmonology consulted. Patient on 3 L nasal cannula at home and noninvasive ventilation at night. Was hypoxic on 6 L nasal cannula on arrival to ED and was placed on ventilator via tracheostomy. Chest x-ray fairly benign. Have concern that patient may have had transient mucous plugging causing significant worsening shortness of breath with hypoxia. Was treated with complete course of antibiotics for recent suspected Pseudomonas pneumonia and it seems less likely this pneumonia would have recurred. However, this cannot be ruled out. Will treat with IV Zosyn for now. Sputum culture and blood culture ordered. Will continue ventilator overnight and appreciate pulmonology recs tomorrow morning. Patient notably has significant cuff leak and may need tracheostomy exchange but will defer this to pulmonology. Continue home inhalers. N.p.o. status while on ventilator. 05/16/2024: Appreciate sheetrock applicator assistance. Continue with Zosyn and steroids 2. Elevated troponin ? Troponins 125 > 125 on admit. No ischemic EKG changes. No chest pain noted. Suspect elevated troponins are due to demand ischemia from mild hypotension from recent poor p.o. intake. No further management needed. 3. Mild GUME ? Creatinine 1.10 on admit, baseline 0.6-0.8. Suspect prerenal etiology. Given IV fluid resuscitation in the ED, follow-up a.m. BMP and monitor urine output. 4. Mild hyperkalemia ? Potassium 5.6 on admit. No EKG changes noted. Suspect due to mild GUME. Follow-up a.m. BMP. 5. Elevated lactic acid ? Lactic acid 2.8 on admit. No acidosis present. Blood pressure mildly low in ED, improved with IV fluid resuscitation. No need to repeat lactic acid at this time. 6. Debility ? PT/OT/case management consulted. Patient lives at home with significant other and has other family available to help her. Has required snf stays in the past but most recently has gone home on past few discharges. Likely will return home after this discharge as well. Chronic medical conditions: ? Chronic anemia: Hemoglobin 9.1 on admit, baseline around 8-9. Stable. ? HFrEF, history of CAD, hyperlipidemia, history of CVA: Last echo on 03/04/2024 showed an EF of 45 to 50%, mild global LV hypokinesis, moderate eccentric MR. BNP 740 on this admit, appears stable from previous and no signs of volume overload on exam. Continue home aspirin and statin once able to resume p.o. intake. Holding home Lasix and Toprol for now, restart when able. ? Anxiety/depression/insomnia: Stable. Continue home aripiprazole at night, duloxetine, escitalopram, gabapentin, mirtazapine and alprazolam as needed once able to resume p.o. intake. ? Seizure disorder: Is reportedly on phenytoin 3 times daily but notably has not had this filled in the last year per pharmacy. Will hold at this time. ? GERD: Continue home PPI. DVT: Lovenox Charges/Coding Visit Charges Inpatient E&M: 42480 Subs Hosp L2
--- NOTE | 2024-05-16 10:25 | ECHOCS_ITS ---
Reason For Study: Dyspnea/SOB Procedure This was a 2D Doppler, Color Flow transthoracic echocardiogram. Contrast injection was performed. Exam performed portable in ICU/CCU. Left Ventricle Normal LV size. The left ventricular ejection fraction is 40 %. Stage 1 diastolic dysfunction. Goodwin : Severely Hypokinetic. The rest of the wall segments are hypokinetic. Right Ventricle Normal RV size. Normal systolic function. Atria Normal left atrium. Normal right atrium. Mitral Valve Normal mitral valve. Mild-Moderate (1-2+) eccentric mitral valve insufficiency. Tricuspid Valve Normal tricuspid valve. Mild tricuspid valve insufficiency. Aortic Valve The aortic valve is not well visualized. Pulmonic Valve The pulmonic valve is not well visualized. Great Vessels Normal aortic root. Pericardium/Pleural No pericardial effusion. Medication Diluted definity 2.5ml given slow IV push to enhance endocardial definition. MMode/2D Measurements & Calculations LVIDd: 5.3 cm IVSd: 0.95 cm LAV(MOD-bp): 62.9 ml LVIDs: 3.8 cm LVPWd: 0.79 cm RVDd: 3.5 cm FS: 28.6 % LAV(MOD-bp) Indexed: 38.9 ml/m2 LAV(MOD-sp2): 61.6 ml LAV(MOD-sp4): 55.0 ml SV(MOD-sp4): 72.7 ml SV(sp4-el): 72.8 ml LVAd ap4: 44.3 cm2 LVLd ap4: 8.9 cm SI(MOD-sp4): 44.9 ml/m2 EDV(MOD-sp4): 186.4 ml EDV(sp4-el): 187.5 ml LVAs ap4: 33.5 cm2 LVLs ap4: 8.3 cm ESV(MOD-sp4): 113.7 ml ESV(sp4-el): 114.7 ml EF(MOD-sp4): 39.0 % EF(sp4-el): 38.8 % LA dimension(2D): 4.3 cm LA A4 area: 20.0 cm2 RA A4 area: 11.6 cm2 TAPSE: 1.4 cm Time Measurements MV dec time: 0.23 sec Doppler Measurements & Calculations MV E max james: 101.3 cm/sec Lat Peak E' James: 10.4 cm/sec Med Peak E' James: 10.2 cm/sec MV A max james: 104.2 cm/sec E/E' lat: 9.8 E/E' med: 10.0 MV E/A: 0.97 MV V2 max: 129.6 cm/sec MV P1/2t max james: 130.6 cm/sec Ao V2 max: 150.1 cm/sec MV max P.7 mmHg MV P1/2t: 78.3 msec Ao max P.0 mmHg MV V2 mean: 75.0 cm/sec MV dec slope: 488.7 cm/sec2 Ao V2 mean: 106.0 cm/sec MV mean P.7 mmHg MVA(P1/2t): 2.8 cm2 Ao mean P.1 mmHg MV V2 VTI: 30.6 cm Ao V2 VTI: 31.5 cm LV V1 max: 92.6 cm/sec MR max james: 541.9 cm/sec PA V2 max: 80.0 cm/sec LV V1 max P.4 mmHg MR max P.5 mmHg MR mean james: 396.0 cm/sec MR mean P.9 mmHg MR VTI: 153.7 cm ECHO/Echo Complete W/ Contrast Interpretation Summary Normal LV size. The left ventricular ejection fraction is 40 %. Goodwin : Severely Hypokinetic. Mild-Moderate (1-2+) eccentric mitral valve insufficiency. Stage 1 diastolic dysfunction. Contrast injection was performed. Ordering Physician: Anurag Flannery Performed By: Colin Evans RCS
--- NOTE | 2024-05-16 10:40 | CASEMGMT ---
Addendum entered by Bryan Amador 05/16/24 15:53: [facility] RT states to this RN CM that the pt family brought in the pt's NIV and that the pt has the appropriate equipment needed for the time being. Addendum entered by Bryan Amador 05/16/24 15:10: This RN CM talked to Juana from [facility] on the phone. Juana states that the pt still has an Astral series NIV at home. Juana confirms and states that they can no longer service this pt's NIV d/t a history or non-compliance. Juana states that they can still service the pt for concentrators and portable tanks, however. Dr. Flannery is requesting an interface for the pt NIV from [facility]. Lili, manager aviation, is now involved and is contacting leadership through [facility] to see if this can be arranged for the pt. CM will continue to follow. Original Note: Readmission Note: Index: 04/29/24-05/01/24. Dx: Acute Hypercapnic RF Readmission: 05/15/24. Dx: Acute on Chronic RF The pt is from home with her and came into the hospital with SOB. The pt is active with HH through [facility] in [place] (SN, PT). The pt has home oxygen through [facility]. The current order states 5L continuous through NIV. RN CM to pt room at this time. Pt at bedside. Pt states that she is independent and would like to go home, at time of DC, with the continuation of the HHC. Resumption referral sent to [facility] via [employer] TC to [facility] who states that they should be able to continue the pt care, will follow. Pt states that she was able to get her 4 new prescriptions at the time of DC and take them as ordered. Pt and pt also stated that the pt was able to follow up with the pt PCP. This RN CM questioned the pt compliancy with the oxygen use at home. Pt reports that she just got all of the necessary equipment to make wearing the oxygen comfortable at home. Pt states that she was not wearing the oxygen as ordered in the past but states that she plans to now, with this provided equipment. Dr. Flannery requests that [facility] bring in the necessary equipment and provide education to the pt, to help prevent reoccurrence/ readmissions in the future. This RN CM contacted the [facility] liaison, Wayne, about this. Wayne states that he reached out to Juana ([facility] manager books) who states that [facility] cannot provide the pt with any equipment while in the hospital and cannot come to provide the pt with education due to a history of non-compliance. Dr. Flannery and [facility] RT updated and aware. RT states that they will provide the pt with the needed equipment while in the hospital and will also provide education. This RN CM notified the pt of this who states that she is agreeable. Pt then again states that she has all of the needed oxygen equipment at home and plans to be more compliant with this moving forward. Pt denies further questions or concerns at this time.
[2024-05-16] MEDS: Enoxaparin 40 MG/0.4 ML Syringe SC (11:34)
[2024-05-16] MEDS: guaiFENesin/D-Methorphan TAB.SR.12H 2 TABLET PO ×2 (11:35→21:07)
[2024-05-16] MEDS: Escitalopram Oxalate 20 MG Tablet PO (11:35)
[2024-05-16] MEDS: DULoxetine Hcl 60 MG Capsule PO (11:35)
[2024-05-16] MEDS: Aspirin E.C. 81 MG Tablet PO (11:35)
[2024-05-16] MEDS: Cholecalciferol (VIT D3) 25 MCG TABLET (1,000 UNITS) PO (11:36)
[2024-05-16] MEDS: Pantoprazole Sodium 40 MG Tablet PO (11:36)
[2024-05-16 12:15] LABS: Other WBC Type 1.15 %; Polychromasia 1.15
[2024-05-16 13:52] LABS: CORD ABG Bicarbonate 35 mmol/L (21-27); CORD ABG SO2 99 % (15-45); Cord ABG Base Excess 10 mmol/L (-4-2); Cord ABG PO2 124 mmHG (10-35); Cord ABG Total Carbon Dioxide 37 mmol/L; Cord ABG pCO2 64.2 mmHg (40-60); Cord ABG pH 7.35 (7.20-7.35)
--- NOTE | 2024-05-16 17:54 | CPS ---
This RT asked patient about home Cornelio vent, and if she could have her family bring it in to see if we are able to see what supplies are needed for her to be compliant at home. Patient's family brought in Cornelio vent and all pieces were present. Patient wears a mask to use it at home with the Passy Mur valve on. This RT educated patient on why she needs to wear the Cornelio through her trach. She is aware of the reasoning. This RT and Pete Knight RT configured patient's home Cornelio to connect to her trach. We educated her on the importance of the balloon being up during the time when the Cornelio is on. Patient wore the Cornelio for 10 min to make sure it is working properly and comfortable. She is in agreement to trial it in the [facility]. It was discussed that tomorrow Pete RT will educate the family on the new process of the Cornelio ventilator through the trach. Dr. Flannery updated at this time. Mary Alice De Jesus SOUND PRINTER
[2024-05-16 18:15] LABS: Blood Gas Specimen Type ART
[2024-05-16 18:16] LABS: O2 Delivery Device NC; SITE L BRACHIAL
[2024-05-16] MEDS: Mirtazapine 15 MG Tablet 7.5 MG PO (21:07)
[2024-05-16] MEDS: ARIPiprazole 2 MG Tablet PO (21:07)
[2024-05-16] MEDS: Atorvastatin Calcium 40 MG Tablet PO (21:08)
[2024-05-16] MEDS: Gabapentin 300 MG Capsule PO (21:10)
--- NOTE | 2024-05-16 21:45 | CPS ---
Pt placed on home ventilator with 370 Vt, RR 15, PEEP 8 and 4 lpm O2 Bleed.
[2024-05-16] MEDS: traZODone 50 MG Tablet PO (22:18)
[2024-05-16] MEDS: ALPRAZolam 0.5 MG Tablet PO (22:18)
--- NOTE | 2024-05-16 22:45 | CPS ---
Increased Bleed in O2 to 6 lpm for low saturations.
[2024-05-17] VITALS (16 sets, daily range): BP systolic 92–147; BP diastolic 46–90; PULSE 60–99; RESP 15–23; TEMP 36.4–37.3; O2SAT 93–100; BMI 25.2
[2024-05-17] MEDS: Albuterol 2.5 MG/3 ML VIAL.NEB. INHALATION (05:00)
--- NOTE | 2024-05-17 05:00 | CPS ---
Decreased O2 bleed in to 4 lpm.
[2024-05-17] MEDS: 0.9% Saline Lock 10 ML Syringe IV ×2 (05:09→23:00)
[2024-05-17] MEDS: Piperacil/Tazobactam 3.375 GM in 0.9% Normal Saline (50mL MB+) 50 ML IV ×3 (05:09→20:35)
[2024-05-17 05:37] LABS: Anion Gap 6 (5-15); BUN 22 mg/dL (7-18); BUN/Creat Ratio 24.7 RATIO (10-20); Calcium,Total 8.6 mg/dL (8.5-10.1); Chloride 103 mmol/L (98-107); Creatinine, Serum 0.89 mg/dL (0.55-1.02); EST Glomerular Filtration Rate 67 mL/min (>60); Est Glom Filt Rate - Afr Amer 81 mL/min (>60); Glucose 122 mg/dL (74-106); Potassium 4.4 mmol/L (3.5-5.1); Sodium Level 140 mmol/L (136-145)
[2024-05-17] MEDS: Ipratropium/Albuterol Sulfate 3 ML AMPUL.NEB INHALATION ×3 (07:00→19:22)
[2024-05-17] MEDS: guaiFENesin/D-Methorphan TAB.SR.12H 2 TABLET PO ×2 (08:18→20:33)
[2024-05-17] MEDS: Enoxaparin 40 MG/0.4 ML Syringe SC (08:18)
[2024-05-17] MEDS: DULoxetine Hcl 60 MG Capsule PO (08:19)
[2024-05-17] MEDS: Escitalopram Oxalate 20 MG Tablet PO (08:19)
[2024-05-17] MEDS: Pantoprazole Sodium 40 MG Tablet PO (08:19)
[2024-05-17] MEDS: Cholecalciferol (VIT D3) 25 MCG TABLET (1,000 UNITS) PO (08:19)
[2024-05-17] MEDS: Aspirin E.C. 81 MG Tablet PO (08:21)
--- NOTE | 2024-05-17 09:48 | PN.HOSP_ITS ---
Subjective Subjective Doing well, off of the CPAP while awake. Discussed the need to be wearing her CPAP at home when asleep Objective Data Objective Data Vital Signs: Vital Signs Temp Pulse Resp BP Pulse Ox O2 Del Method O2 Flow Rate 97.8 F 85 15 120/79 100 Nasal Cannula 4 05/17/24 07:00 05/17/24 07:00 05/17/24 07:00 05/17/24 07:00 05/17/24 07:00 05/17/24 08:05 05/17/24 07:00 FiO2 3 05/17/24 08:05 Oxygen Flow Rate (L/min) 4 Oxygen Delivery Method Nasal Cannula Weight: 136 lb 14.513 oz Body Mass Index (BMI) 25.2 Intake & Output: Intake and Output for Last 24 Hours 05/16/24 05/17/24 05/18/24 03:59 03:59 03:59 Intake Total 905 / 905 350 / 350 Output Total 400 / 400 Balance 905 / 905 -50 / -50 Lab / Micro Data 05/16/24 04:53 05/17/24 05:10 Labs: Laboratory Results - last 24 hr 05/15/24 15:10: Plt Count , Other Cells % 1.15, Polychromasia 1.15 05/17/24 05:10: WBC Cancelled, Corrected WBC Cancelled, RBC Cancelled, Hgb Cancelled, Hct Cancelled, MCV Cancelled, MCH Cancelled, MCHC Cancelled, RDW Std Deviation Cancelled, RDW Coeff of Deonte Cancelled, Plt Count Cancelled, MPV Cancelled, Immature Gran % (Auto) Cancelled, Neut % (Auto) Cancelled, Lymph % (Auto) Cancelled, [place] % (Auto) Cancelled, Eos % (Auto) Cancelled, Baso % (Auto) Cancelled, Absolute Neuts (auto) Cancelled, Absolute Lymphs (auto) Cancelled, Total Counted Cancelled, Neutrophils % (Manual) Cancelled, Band Neutrophils % Cancelled, Lymphocytes % (Manual) Cancelled, Monocytes % (Manual) Cancelled, Eosinophils % (Manual) Cancelled, Basophils % (Manual) Cancelled, Metamyelocytes % Cancelled, Myelocytes % Cancelled, Promyelocytes % Cancelled, Blast Cells % Cancelled, Plasma Cell % (Manual) Cancelled, Other Cells % Cancelled, Nucleated RBC % Cancelled, Nucleated RBCs/100 WBC Cancelled, Differential Comment Cancelled, Diff Path Review Cancelled, Hypersegmented Neuts Cancelled, Atypical Lymphocytes Cancelled, Reactive Lymphocytes Cancelled, Smudge Cells Cancelled, Toxic Granulation Cancelled, Toxic Vacuolation Cancelled, Dohle Bodies Cancelled, Aron Rods Cancelled, Platelet Estimate Cancelled, Plt Morphology Comment Cancelled, RBC Morphology Cancelled 05/17/24 05:10: RBC Morphology Cancelled, Polychromasia Cancelled, Hypochromasia Cancelled, Basophilic Stippling Cancelled, Anisocytosis Cancelled, Microcytosis Cancelled, Macrocytosis Cancelled, Spherocytes Cancelled, Sickle Cells Cancelled, Target Cells Cancelled, Tear Drop Cells Cancelled, Ovalocytes Cancelled, Stomatocytes Cancelled, [place] Bodies Cancelled, [place] Cells Cancelled, Bite Cells Cancelled, Crenated Cell Cancelled, Acanthocytes (Spur) Cancelled, Rouleaux Cancelled, Schistocytes Cancelled, Sodium 140, Potassium 4.4, Chloride 103, Carbon Dioxide 30.0, Anion Gap 6, BUN 22 H, Creatinine 0.89, Estim Creat Clear Calc 50.40, Est GFR (MDRD) Af Amer 81, Est GFR (MDRD) Non-Af 67, BUN/Creatinine Ratio 24.7 H, Glucose 122 H, Calcium 8.6 Micro: Microbiology 05/15/24 17:42 Sputum, Expectorated/Coughed Gram Stain - Final 05/15/24 17:42 Sputum, Expectorated/Coughed Respiratory Culture - Preliminary 05/15/24 15:23 Mucosa - Nose SARS-CoV-2, Influenza & RSV (PCR) - Final ABG Data ABG results: ABG 05/16/24 13:48 Specimen Type ART Sample Site L BRACHIAL Cord ABG pH 7.35 Cord ABG pCO2 64.2 H Cord ABG pO2 124 H Cord ABG HCO3 35 H Cord ABG Total CO2 37 Cord ABG Base Excess 10 H Cord ABG O2 Sat 99 H O2 Delivery Device NC Liter Flow 3.0 Radiography Diagnostic Testing: Radiology Impression Echocardiogram 05/16/24 10:25 Interpretation Summary Normal LV size. The left ventricular ejection fraction is 40 %. [place] : Severely Hypokinetic. Mild-Moderate (1-2+) eccentric mitral valve insufficiency. Stage 1 diastolic dysfunction. Contrast injection was performed. Ordering Physician: Anurag Flannery Performed By: Colin Evans RCS Physical Exam Narrative General: Alert, Oriented x3, Cooperative, No apparent distress HEENT: Atraumatic, PERRLA, EOMI, Normocephalic Oral: Moist Mucosa Neck: Supple, No JVD, tracheostomy Lungs: Diminished, Normal air movement, no rhonchi, No wheeze, No rales Cardiovascular: Regular rate, Regular Rhythm, Normal S1, Normal S2, No murmurs Abdomen: Soft, Non Tender, Non-Distended, No Hepato-splenomegaly Extremities: No edema, Capillary Refill Less than 3 Seconds Skin: No rashes, No breakdown Musculoskeletal: No Tenderness to Palpation of Joints or Extremities Neurological: No focal neurological deficits, Motor Exam 5/5 strength throughout, Sensory exam intact to light touch and pain Psych/Mental Status: Normal Affect, Appropriate Assessment & Plan Assessment/Plan (1) Acute and chronic respiratory failure: PLAN: Plan 1. Acute on chronic hypoxic respiratory failure with tracheostomy in place; concern for recurrent pneumonia; tracheostomy cuff leak ? Admit under inpatient status to ICU. Pulmonology consulted. Patient on 3 L nasal cannula at home and noninvasive ventilation at night. Was hypoxic on 6 L nasal cannula on arrival to ED and was placed on ventilator via tracheostomy. Chest x-ray fairly benign. Have concern that patient may have had transient mucous plugging causing significant worsening shortness of breath with hypoxia. Was treated with complete course of antibiotics for recent suspected Pseudomonas pneumonia and it seems less likely this pneumonia would have recurred. However, this cannot be ruled out. Will treat with IV Zosyn for now. Sputum culture and blood culture ordered. Will continue ventilator overnight and appreciate pulmonology recs tomorrow morning. Patient notably has significant cuff leak and may need tracheostomy exchange but will defer this to pulmonology. Continue home inhalers. N.p.o. status while on ventilator. 05/16/2024: Appreciate radio disc jockey assistance. Continue with Zosyn and steroids 05/17/2024: Appreciate pulmonology's assistance, continue with antibiotics and steroids, Awaiting sputum culture 2. Elevated troponin ? Troponins 125 > 125 on admit. No ischemic EKG changes. No chest pain noted. Suspect elevated troponins are due to demand ischemia from mild hypotension from recent poor p.o. intake. No further management needed. 3. Mild GUME ? Creatinine 1.10 on admit, baseline 0.6-0.8. Suspect prerenal etiology. Given IV fluid resuscitation in the ED, follow-up a.m. BMP and monitor urine output. 4. Mild hyperkalemia ? Potassium 5.6 on admit. No EKG changes noted. Suspect due to mild GUME. Follow-up a.m. BMP. 5. Elevated lactic acid ? Lactic acid 2.8 on admit. No acidosis present. Blood pressure mildly low in ED, improved with IV fluid resuscitation. No need to repeat lactic acid at this time. 6. Debility ? PT/OT/case management consulted. Patient lives at home with significant other and has other family available to help her. Has required penitentiary stays in the past but most recently has gone home on past few discharges. Likely will return home after this discharge as well. Chronic medical conditions: ? Chronic anemia: Hemoglobin 9.1 on admit, baseline around 8-9. Stable. ? HFrEF, history of CAD, hyperlipidemia, history of CVA: Last echo on 03/04/2024 showed an EF of 45 to 50%, mild global LV hypokinesis, moderate eccentric MR. BNP 740 on this admit, appears stable from previous and no signs of volume overload on exam. Continue home aspirin and statin once able to resume p.o. intake. Holding home Lasix and Toprol for now, restart when able. Echo on 05/16/2024 with an EF of 40% and stage I diastolic dysfunction ? Anxiety/depression/insomnia: Stable. Continue home aripiprazole at night, duloxetine, escitalopram, gabapentin, mirtazapine and alprazolam as needed once able to resume p.o. intake. ? Seizure disorder: Is reportedly on phenytoin 3 times daily but notably has not had this filled in the last year per pharmacy. Will hold at this time. ? GERD: Continue home PPI. DVT: Lovenox Charges/Coding Visit Charges Inpatient E&M: 19856 Subs Hosp L2
--- NOTE | 2024-05-17 10:42 | PN.CC_ITS ---
Assessment & Plan Assessment/Plan (1) Acute on chronic respiratory failure with hypoxia and hypercapnia: PLAN: Plan RECOMMENDATIONS: 1. Continue supplemental oxygen at 3 L/min during the day with ventilatory support nightly via trach. 2. Continue empiric antibiotics until cultures are finalized. If cultures are negative, antibiotics can be discontinued. 3. Continue scheduled bronchodilators and steroids. 4. Continue appropriate DVT prophylaxis. 5. Mobilize patient as tolerated. 6. The patient is medically stable for transfer out of the intensive care unit. 7. Follow-up in the pulmonary medicine clinic in June as scheduled. IMPRESSIONS: 1. Acute on chronic combined respiratory failure The patient has known end-stage COPD and chronic hypoxemic respiratory failure, along with baseline CO2 retention. In addition, she has a known history of noncompliance with her prescribed outpatient noninvasive ventilator. She was recently admitted to the hospital with pseudomonal pneumonia. At presentation, chest imaging demonstrated a vague left lower lobe infiltrate. Therefore, the patient was restarted on antimicrobial therapy. The patient is doing well from a respiratory perspective and is on her baseline oxygen requirement during the day with ventilatory support nightly. Plan to continue scheduled bronchodilators and steroids. Ideally, the patient needs appropriate supplies to allow her to utilize her astral noninvasive ventilator via her tracheostomy. Case management is currently involved to assist with obtaining the appropriate supplies. 2. History of end-stage COPD/chronic hypoxemic respiratory failure/obstructive sleep apnea/frequent COPD exacerbations The patient has a known history of end-stage COPD with known outpatient medical noncompliance. She will be maintained on scheduled bronchodilators for now. Management as noted above. 3. History of hemorrhagic CVA/former tobacco dependency/history of cardiomyopathy/anxiety/depression Complicates care, management, recovery and prognosis. Physical therapy to work with the patient. This note was generated with [employer] dictation software. It may contain incorrect words, spelling, and punctuation that were not noted in checking the note before signing. Subjective Subjective The patient was seen and examined at the bedside this morning. Events from the last 24 hours have been reviewed. The patient is currently afebrile, hemodynamically stable and maintaining appropriate oxygen saturations on 3 L/min via nasal cannula. The patient tolerated ventilatory support overnight without issue. She is resting comfortably this morning without any specific complaints. Chemistry profile was unremarkable. Objective Data Objective Data The patient's most recent lab work, culture data and imaging studies have all been personally reviewed. COVID, influenza and RSV PCR's were negative. Blood and sputum cultures are pending. Vital Signs: Vital Signs Temp Pulse Resp BP Pulse Ox O2 Del Method O2 Flow Rate 98.9 F 99 20 H 118/90 H 94 Nasal Cannula 3 05/17/24 10:00 05/17/24 10:00 05/17/24 10:00 05/17/24 10:00 05/17/24 10:00 05/17/24 10:00 05/17/24 10:00 FiO2 3 05/17/24 09:00 Oxygen Flow Rate (L/min) 3 Oxygen Delivery Method Nasal Cannula Weight: 136 lb 14.513 oz Body Mass Index (BMI) 25.2 Intake & Output: Intake and Output for Last 24 Hours 05/15/24 05/16/24 05/17/24 23:59 23:59 23:59 Intake Total 855 / 855 350 / 350 100 / 100 Output Total 400 / 400 0 / 0 Balance 855 / 855 -50 / -50 100 / 100 Lab / Micro Data Attestation: I reviewed the patient's lab results. 05/16/24 04:53 05/17/24 05:10 Labs: Laboratory Results - last 24 hr 05/15/24 15:10: Plt Count , Other Cells % 1.15, Polychromasia 1.15 05/17/24 05:10: WBC Cancelled, Corrected WBC Cancelled, RBC Cancelled, Hgb Cancelled, Hct Cancelled, MCV Cancelled, MCH Cancelled, MCHC Cancelled, RDW Std Deviation Cancelled, RDW Coeff of Deonte Cancelled, Plt Count Cancelled, MPV Cancelled, Immature Gran % (Auto) Cancelled, Neut % (Auto) Cancelled, Lymph % (Auto) Cancelled, [place] % (Auto) Cancelled, Eos % (Auto) Cancelled, Baso % (Auto) Cancelled, Absolute Neuts (auto) Cancelled, Absolute Lymphs (auto) Cancelled, Total Counted Cancelled, Neutrophils % (Manual) Cancelled, Band Neutrophils % Cancelled, Lymphocytes % (Manual) Cancelled, Monocytes % (Manual) Cancelled, Eosinophils % (Manual) Cancelled, Basophils % (Manual) Cancelled, Metamyelocytes % Cancelled, Myelocytes % Cancelled, Promyelocytes % Cancelled, Blast Cells % Cancelled, Plasma Cell % (Manual) Cancelled, Other Cells % Cancelled, Nucleated RBC % Cancelled, Nucleated RBCs/100 WBC Cancelled, Differential Comment Cancelled, Diff Path Review Cancelled, Hypersegmented Neuts Cancelled, Atypical Lymphocytes Cancelled, Reactive Lymphocytes Cancelled, Smudge Cells Cancelled, Toxic Granulation Cancelled, Toxic Vacuolation Cancelled, Dohle Bodies Cancelled, Aron Rods Cancelled, Platelet Estimate Cancelled, Plt Morphology Comment Cancelled, RBC Morphology Cancelled 05/17/24 05:10: RBC Morphology Cancelled, Polychromasia Cancelled, Hypochromasia Cancelled, Basophilic Stippling Cancelled, Anisocytosis Cancelled, Microcytosis Cancelled, Macrocytosis Cancelled, Spherocytes Cancelled, Sickle Cells Cancelled, Target Cells Cancelled, Tear Drop Cells Cancelled, Ovalocytes Cancelled, Stomatocytes Cancelled, [place] Bodies Cancelled, [place] Cells Cancelled, Bite Cells Cancelled, Crenated Cell Cancelled, Acanthocytes (Spur) Cancelled, Rouleaux Cancelled, Schistocytes Cancelled, Sodium 140, Potassium 4.4, Chloride 103, Carbon Dioxide 30.0, Anion Gap 6, BUN 22 H, Creatinine 0.89, Estim Creat Clear Calc 50.40, Est GFR (MDRD) Af Amer 81, Est GFR (MDRD) Non-Af 67, BUN/Creatinine Ratio 24.7 H, Glucose 122 H, Calcium 8.6 Micro: Microbiology 05/15/24 17:42 Sputum, Expectorated/Coughed Gram Stain - Final 05/15/24 17:42 Sputum, Expectorated/Coughed Respiratory Culture - Preliminary 05/15/24 15:23 Mucosa - Nose SARS-CoV-2, Influenza & RSV (PCR) - Final ABG Data ABG results: ABG 05/16/24 13:48 Specimen Type ART Sample Site L BRACHIAL Cord ABG pH 7.35 Cord ABG pCO2 64.2 H Cord ABG pO2 124 H Cord ABG HCO3 35 H Cord ABG Total CO2 37 Cord ABG Base Excess 10 H Cord ABG O2 Sat 99 H O2 Delivery Device NC Liter Flow 3.0 Radiography Diagnostic Testing: Radiology Impression Echocardiogram 05/16/24 10:25 Interpretation Summary Normal LV size. The left ventricular ejection fraction is 40 %. [place] : Severely Hypokinetic. Mild-Moderate (1-2+) eccentric mitral valve insufficiency. Stage 1 diastolic dysfunction. Contrast injection was performed. Ordering Physician: Anurag Flannery Performed By: Colin Evans RCS Physical Exam Const alert and no apparent distress Constitutional Narrative: Chronically ill in appearance. General Appearance: cooperative HEENT normocephalic and head/scalp atraumatic HEENT Narrative: Stable tracheostomy site. Eyes PERRL, EOMs intact bilaterally and conjunctivae normal Neck supple General: trachea midline Chest inspection of chest normal Resp normal respiratory effort Auscultation: diminished lung sounds Cardio regular rate and regular rhythm GI normal to inspection, nondistended, normoactive bowel sounds Extremity no clubbing, cyanosis or edema Skin no rashes or lesions noted Neuro CN's II-XII intact bilaterally and no focal motor deficits Psych cooperative and affect normal Charges/Coding Visit Charges Inpatient E&M: 94716 Subs Hosp L3
--- NOTE | 2024-05-17 13:01 | CASEMGMT ---
Per the medical team, the pt is requiring an Invasive Ventilator for her tracheostomy. The patient's personal NIV (from [facility]) is currently being used in the room and per Lili Cooley, and RT, the NIV has an invasive ventilator setting on it. The pt was provided with the appropriate equipment via the RT and the pt has remained in stable condition with this. Moving forward, per the medical team, the pt will be able to DC home with the current equipment that she has. However, the pt is requiring ongoing equipment/service from a DME company. Lili Cooley (supervisor accounting clerks), Gina (CM Director), and this RN CM have all talked to [facility] regarding the pt NIV/IV needs. After much conversation with leadership, [facility] states that they cannot supply this equipment d/t the pt non-compliance, as well as not being certified to service invasive ventilators. The tentative plan and goal moving forward is for the pt to DC home with the current equipment that she has, and then have a separate DME company set up for the pt once she is home. Then, the pt can return her current equipment to [facility], as she has been handed to collections for the NIV (d/t non-compliance). After collaboration with Gina, two potential DME companies may be utilized that provide invasive ventilation services. This includes [facility] and [facility]. This RN CM to the pt room at this time. Pt educated on the situation and stated that she understands and is agreeable to setting up a new DME company. Pt states that she does not have a preference. TC to [facility] at this time. A referral was made and [facility] states that this referral will need to be processed and that they will call back this RN CM in 1-2 days. This RN CM then called [facility] to see if a referral could be processed quicker. A referral was made to [facility] out [facility] who states that they will also call this RN CM back after processing. [facility] does not know how long this will take. At this time, awaiting a return response from the DME companies. This RN CM was transparent with the DME companies. [facility] and [facility] were updated on the pt situation, including non-compliance history as well as the pt currently having an NIV through [facility]. Both DME companies state they do service [place], [place]. The pt may require authorization from her insurance as well. Will continue to follow.
--- NOTE | 2024-05-17 14:42 | CASEMGMT ---
Discharge Planning A list of?HH providers including quality and resource use data and consistent with the patient's preferred geographic region, medical needs, and insurance network was created in [facility] Guide.? This list was provided to the RN SPIKE. Carmen Butterfield, Discharge Planning Asst.
--- NOTE | 2024-05-17 15:40 | CASEMGMT ---
Addendum entered by Carmen Butterfiedl 05/18/24 10:10: [facility] and [facility] have declined. Carmen Butterfield DC Planning Asst. Addendum entered by Carmen Butterfield 05/17/24 16:26: [facility], [facility], and [facility] declined. Carmen Butterfield DC Planning Asst. Original Note: Discharge Planning HH referral sent via [facility] to [facility], [facility], [facility], , and [facility]. Carmen Butterfield DC Planning Asst.
--- NOTE | 2024-05-17 15:53 | CASEMGMT ---
Discharge Planning DME referral sent via [facility] to [facility]. Carmen Butterfield DC Planning Asst.
--- NOTE | 2024-05-17 16:26 | CASEMGMT ---
Discharge Planning HH referral sent via [facility] to [facility]. Carmen Butterfield DC Planning Asst.
--- NOTE | 2024-05-17 16:33 | CASEMGMT ---
Telephone call to Johan Beebe to inquire if the patient is active with any social work services. Johan states that the patient is not active with care management or social work services and that they do not provide these disciplines. While on the phone with caretenders, Daksha states that they do not accept any patients on ventilation. Daksha states that they were unaware that the patient was on an NIV prior to hospitalization. Daksha states that they are unable to re-accept the patient as the patient is requiring continuous invasive ventilation moving forward. Carmen, discharge logistics and planning manager, notified and printed out a local list of in-network home healthcare companies. manager of enterprise to patient room at this time. This child support case officer questions if the patient has a child support case officer through her insurance. Patient states that she does not. This manager of enterprise updated the patient on the situation and pt stated that she is agreeable to another home healthcare company service. At first, patient stated that she would like to go through [facility]. Telephone call to Yanet at [facility]. Yanet states that they cannot accept the patient as they do not have skilled nurses that are able to tend to tracheostomies. Patient updated about this, and states that she would like us to send referrals to the remaining six home health companies to see if we can get acceptance. Referrals sent by the discharge logistics and planning manager. Awaiting return responses. tG returns call and states that they will be able to help service the patient. Referral sent to [facility] via [facility] by the discharge logistics and planning manager. This manager of enterprise talked to Timmy. Timmy states that he will be coming into the hospital tomorrow to collaborate with respiratory therapy and the pt to work on getting the vent set up. Timmy states that he will bring a prescription for signing tomorrow. Timmy states that there is a process when it comes to invasive vents as they will need to go to the patient?s home prior to discharge to ensure safety. Timmy said that they cannot facilitate a Wednesday or weekend discharge as the patient will have to stay here in the hospital through a trial with their vent. This child support case officer updated Gina, Care Management Director as well as Dr. Flannery. This manager of enterprise also updated Linda Keen) on the situation. Wayne states he will pass the info along to Awilda. At this time, we are awaiting return responses from home health companies, as well as an invasive ventilator set up through [facility]. Will continue to follow. Pt and pt RN updated.
[2024-05-17] MEDS: Atorvastatin Calcium 40 MG Tablet PO (20:34)
[2024-05-17] MEDS: Mirtazapine 15 MG Tablet 7.5 MG PO (20:34)
[2024-05-17] MEDS: Gabapentin 300 MG Capsule PO (20:34)
[2024-05-17] MEDS: ARIPiprazole 2 MG Tablet PO (20:35)
[2024-05-17] MEDS: traZODone 50 MG Tablet PO (20:38)
[2024-05-17] MEDS: Acetaminophen 325 MG Tablet 650 MG PO (23:00)
[2024-05-17] MEDS: ALPRAZolam 0.5 MG Tablet PO (23:00)
[2024-05-18] VITALS (11 sets, daily range): BP systolic 103–123; BP diastolic 50–77; PULSE 73–100; RESP 14–21; TEMP 36.1–36.7; O2SAT 95–100; BMI 25.4
[2024-05-18] MEDS: Piperacil/Tazobactam 3.375 GM in 0.9% Normal Saline (50mL MB+) 50 ML IV ×2 (04:30→14:01)
[2024-05-18] MEDS: Ipratropium/Albuterol Sulfate 3 ML AMPUL.NEB INHALATION ×3 (07:02→19:54)
[2024-05-18 08:25] LABS: Absolute Lymphocyte Count 0.73 X10^3/uL (0.83-4.51); Absolute Neutrophil Count 9.6 X10^3/uL (2.0-7.7); Basophil# 0.02 X10^3/uL; Basophil% 0.2 % (0-1); Hematocrit 29.5 % (37-47); Hemoglobin 8.7 g/dL (12.0-15.0); Lymphocyte # 0.73 X10^3/ul (0.83-4.51); Lymphocyte % 6.7 % (19-41); Mean Corp Hgb Conc 29.5 g/dL (32-36); Mean Corpuscular Hgb 26.7 pg (27.0-32.0); Mean Corpuscular Volume 90.5 fL (81-99); Mean Platelet Vol. 10.5 fl (6.2-12.0); Monocyte# 0.58 X10^3/uL; Monocyte% 5.3 % (0-10); NRBC Flagged by Analyzer 0 % (0-5); Neutrophil # 9.56 X10^3/uL (2.7-7.7); Neutrophil % 87.3 % (47-70); Platelet Count 203 K/mm3 (150-450); RBC Distribution Width CV 15.1 % (11.6-14.6); RBC Distribution Width SD 50.2 fl (35.1-43.9); Red Blood Count 3.26 M/mm3 (4.2-5.4)
[2024-05-18 08:54] LABS: Anion Gap 1 (5-15); BUN 21 mg/dL (7-18); BUN/Creat Ratio 31.2 RATIO (10-20); Calcium,Total 9.2 mg/dL (8.5-10.1); Chloride 104 mmol/L (98-107); Creatinine, Serum 0.67 mg/dL (0.55-1.02); EST Glomerular Filtration Rate 92 mL/min (>60); Est Glom Filt Rate - Afr Amer 112 mL/min (>60); Estimated Creatinine Clearance 56.28 ml/min; Glucose 128 mg/dL (74-106); Potassium 4.5 mmol/L (3.5-5.1); Sodium Level 141 mmol/L (136-145)
--- NOTE | 2024-05-18 09:12 | PN.HOSP_ITS ---
Subjective Subjective Doing well, no issues overnight. Respiratory status is much improved with continued compliance on her CPAP Objective Data Objective Data Vital Signs: Vital Signs Temp Pulse Resp BP Pulse Ox O2 Del Method O2 Flow Rate 98.0 F 77 20 H 107/55 L 95 Trach Collar 6 05/18/24 04:00 05/18/24 07:03 05/18/24 07:03 05/18/24 04:00 05/18/24 07:03 05/18/24 08:10 05/18/24 08:10 FiO2 3 05/17/24 15:00 Oxygen Flow Rate (L/min) 6 Oxygen Delivery Method Trach Collar Weight: 138 lb 0.15 oz Body Mass Index (BMI) 25.4 Intake & Output: Intake and Output for Last 24 Hours 05/17/24 05/18/24 05/19/24 03:59 03:59 03:59 Intake Total 350 / 350 270 / 270 60 / 60 Output Total 400 / 400 60 / 60 Balance -50 / -50 210 / 210 60 / 60 Lab / Micro Data 05/18/24 08:15 05/18/24 08:15 Labs: Laboratory Results - last 24 hr 05/18/24 08:15: WBC 11.0, RBC 3.26 L, Hgb 8.7 L, Hct 29.5 L, MCV 90.5, MCH 26.7 L, MCHC 29.5 L, RDW Std Deviation 50.2 H, RDW Coeff of Deonte 15.1 H, Plt Count 203, MPV 10.5, Immature Gran % (Auto) 0.500, Neut % (Auto) 87.3 H, Lymph % (Auto) 6.7 L, Brooke % (Auto) 5.3, Eos % (Auto) 0.0, Baso % (Auto) 0.2, Absolute Neuts (auto) 9.6 H, Absolute Lymphs (auto) 0.73 L, Nucleated RBC % 0, Sodium 141, Potassium 4.5, Chloride 104, Carbon Dioxide 36.0 H, Anion Gap 1 L, BUN 21 H , Creatinine 0.67, Estim Creat Clear Calc 56.28, Est GFR (MDRD) Af Amer 112, Est GFR (MDRD) Non-Af 92, BUN/Creatinine Ratio 31.2 H, Glucose 128 H, Calcium 9.2, Magnesium 2.0 Micro: Microbiology 05/15/24 17:42 Sputum, Expectorated/Coughed Gram Stain - Final 05/15/24 17:42 Sputum, Expectorated/Coughed Respiratory Culture - Final Corynebacterium striatum 05/15/24 15:23 Mucosa - Nose SARS-CoV-2, Influenza & RSV (PCR) - Final Physical Exam Narrative General: Alert, Oriented x3, Cooperative, No apparent distress HEENT: Atraumatic, PERRLA, EOMI, Normocephalic Oral: Moist Mucosa Neck: Supple, No JVD, tracheostomy Lungs: Diminished, Normal air movement, no rhonchi, No wheeze, No rales Cardiovascular: Regular rate, Regular Rhythm, Normal S1, Normal S2, No murmurs Abdomen: Soft, Non Tender, Non-Distended, No Hepato-splenomegaly Extremities: No edema, Capillary Refill Less than 3 Seconds Skin: No rashes, No breakdown Musculoskeletal: No Tenderness to Palpation of Joints or Extremities Neurological: No focal neurological deficits, Motor Exam 5/5 strength throughout, Sensory exam intact to light touch and pain Psych/Mental Status: Normal Affect, Appropriate Assessment & Plan Assessment/Plan (1) Acute and chronic respiratory failure: PLAN: Plan 1. Acute on chronic hypoxic respiratory failure with tracheostomy in place; concern for recurrent pneumonia; tracheostomy cuff leak ? Admit under inpatient status to ICU. Pulmonology consulted. Patient on 3 L nasal cannula at home and noninvasive ventilation at night. Was hypoxic on 6 L nasal cannula on arrival to ED and was placed on ventilator via tracheostomy. Chest x-ray fairly benign. Have concern that patient may have had transient mucous plugging causing significant worsening shortness of breath with hypoxia. Was treated with complete course of antibiotics for recent suspected Pseudomonas pneumonia and it seems less likely this pneumonia would have recurred. However, this cannot be ruled out. Will treat with IV Zosyn for now. Sputum culture and blood culture ordered. Will continue ventilator overnight and appreciate pulmonology recs tomorrow morning. Patient notably has significant cuff leak and may need tracheostomy exchange but will defer this to pulmonology. Continue home inhalers. N.p.o. status while on ventilator. 05/16/2024: Appreciate sales floor team member assistance. Continue with Zosyn and steroids 05/17/2024: Appreciate pulmonology's assistance, continue with antibiotics and steroids, Awaiting sputum culture 05/18/2024: Sputum culture with corynebacterium striatum, can discontinue Zosyn. Will have to wait through the weekend as her current DME company no longer will service her secondary to noncompliance, she does have a new company however they will not evaluate her or set her up with equipment until Wednesday 2. Elevated troponin ? Troponins 125 > 125 on admit. No ischemic EKG changes. No chest pain noted. Suspect elevated troponins are due to demand ischemia from mild hypotension from recent poor p.o. intake. No further management needed. 3. Mild GUME ? Creatinine 1.10 on admit, baseline 0.6-0.8. Suspect prerenal etiology. Given IV fluid resuscitation in the ED, follow-up a.m. BMP and monitor urine output. 4. Mild hyperkalemia ? Potassium 5.6 on admit. No EKG changes noted. Suspect due to mild GUME. Follow-up a.m. BMP. 5. Elevated lactic acid ? Lactic acid 2.8 on admit. No acidosis present. Blood pressure mildly low in ED, improved with IV fluid resuscitation. No need to repeat lactic acid at this time. 6. Debility ? PT/OT/case management consulted. Patient lives at home with significant other and has other family available to help her. Has required halfway stays in the past but most recently has gone home on past few discharges. Likely will return home after this discharge as well. Chronic medical conditions: ? Chronic anemia: Hemoglobin 9.1 on admit, baseline around 8-9. Stable. ? HFrEF, history of CAD, hyperlipidemia, history of CVA: Last echo on 03/04/2024 showed an EF of 45 to 50%, mild global LV hypokinesis, moderate eccentric MR. BNP 740 on this admit, appears stable from previous and no signs of volume overload on exam. Continue home aspirin and statin once able to resume p.o. intake. Holding home Lasix and Toprol for now, restart when able. Echo on 05/16/2024 with an EF of 40% and stage I diastolic dysfunction ? Anxiety/depression/insomnia: Stable. Continue home aripiprazole at night, duloxetine, escitalopram, gabapentin, mirtazapine and alprazolam as needed once able to resume p.o. intake. ? Seizure disorder: Is reportedly on phenytoin 3 times daily but notably has not had this filled in the last year per pharmacy. Will hold at this time. ? GERD: Continue home PPI. DVT: Lovenox Charges/Coding Visit Charges Inpatient E&M: 09758 Subs Hosp L2
--- NOTE | 2024-05-18 09:18 | CASEMGMT ---
MARY Warner from [employer]. Timmy states that he will be at [facility] around [id number]. Will follow.
[2024-05-18] MEDS: guaiFENesin/D-Methorphan TAB.SR.12H 2 TABLET PO ×2 (09:39→20:34)
[2024-05-18] MEDS: Enoxaparin 40 MG/0.4 ML Syringe SC (09:39)
[2024-05-18] MEDS: Escitalopram Oxalate 20 MG Tablet PO (09:39)
[2024-05-18] MEDS: DULoxetine Hcl 60 MG Capsule PO (09:39)
[2024-05-18] MEDS: Aspirin E.C. 81 MG Tablet PO (09:39)
[2024-05-18] MEDS: Pantoprazole Sodium 40 MG Tablet PO (09:40)
[2024-05-18] MEDS: 0.9% Saline Lock 10 ML Syringe IV ×2 (09:40→14:00)
[2024-05-18] MEDS: Cholecalciferol (VIT D3) 25 MCG TABLET (1,000 UNITS) PO (09:40)
--- NOTE | 2024-05-18 10:09 | CASEMGMT ---
So far, all [facility] companies have declined the pt e/f [facility]. TC to [facility]. No answer, left VM.
--- NOTE | 2024-05-18 10:11 | PCM.PN.INT ---
Assessment & Plan Assessment/Plan (1) Acute on chronic respiratory failure with hypoxia and hypercapnia: PLAN: Plan RECOMMENDATIONS: 1. Continue supplemental oxygen at 3 L/min during the day with ventilatory support nightly via trach. 2. Continue empiric antibiotics until cultures are finalized. If cultures are negative, antibiotics can be discontinued. 3. Continue scheduled bronchodilators and steroids. Okay to transition to prednisone 40 mg daily x 5 days. 4. Continue appropriate DVT prophylaxis. 5. Mobilize patient as tolerated. 6. Follow-up in the pulmonary medicine clinic in June as scheduled. 7. Awaiting new DME provider and supplies to allow ventilatory support at home via trach, prior to discharge. IMPRESSIONS: 1. Acute on chronic combined respiratory failure The patient has known end-stage COPD and chronic hypoxemic respiratory failure, along with baseline CO2 retention. In addition, she has a known history of noncompliance with her prescribed outpatient noninvasive ventilator. She was recently admitted to the hospital with pseudomonal pneumonia. At presentation, chest imaging demonstrated a vague left lower lobe infiltrate. Therefore, the patient was restarted on antimicrobial therapy. The patient is doing well from a respiratory perspective and is on her baseline oxygen requirement during the day with ventilatory support nightly. Plan to continue scheduled bronchodilators and steroids. Ideally, the patient needs appropriate supplies to allow her to utilize her astral noninvasive ventilator via her tracheostomy. Case management is currently involved to assist with obtaining the appropriate supplies, prior to discharge. 2. History of end-stage COPD/chronic hypoxemic respiratory failure/obstructive sleep apnea/frequent COPD exacerbations The patient has a known history of end-stage COPD with known outpatient medical noncompliance. She will be maintained on scheduled bronchodilators for now. Management as noted above. 3. History of hemorrhagic CVA/former tobacco dependency/history of cardiomyopathy/anxiety/depression Complicates care, management, recovery and prognosis. Physical therapy to work with the patient. This note was generated with [employer] dictation software. It may contain incorrect words, spelling, and punctuation that were not noted in checking the note before signing. Subjective Subjective The patient was seen and examined at the bedside this morning. Events from the last 24 hours have been reviewed. The patient has remained on stable nighttime ventilatory support with supplemental oxygen during the day, per home regimen. The patient is currently being evaluated by [employer] for new ventilatory supplies and interface to allow her to go home and utilize her home ventilator via her tracheostomy tube. Objective Data Objective Data The patient's most recent lab work, culture data and imaging studies have all been personally reviewed. COVID, influenza and RSV PCR's were negative. Blood and sputum cultures are pending. Vital Signs: Vital Signs Temp Pulse Resp BP Pulse Ox O2 Del Method O2 Flow Rate 98.0 F 77 20 H 107/55 L 95 Trach Collar 6 05/18/24 04:00 05/18/24 07:03 05/18/24 07:03 05/18/24 04:00 05/18/24 07:03 05/18/24 08:10 05/18/24 08:10 FiO2 3 05/17/24 15:00 Oxygen Flow Rate (L/min) 6 Oxygen Delivery Method Trach Collar Weight: 138 lb 0.15 oz Body Mass Index (BMI) 25.4 Intake & Output: Intake and Output for Last 24 Hours 05/16/24 05/17/24 05/18/24 23:59 23:59 23:59 Intake Total 350 / 350 150 / 270 280 / 280 Output Total 400 / 400 60 / 60 Balance -50 / -50 90 / 210 280 / 280 Lab / Micro Data Attestation: I reviewed the patient's lab results. 05/18/24 08:15 05/18/24 08:15 Labs: Laboratory Results - last 24 hr 05/18/24 08:15: WBC 11.0, RBC 3.26 L, Hgb 8.7 L, Hct 29.5 L, MCV 90.5, MCH 26.7 L, MCHC 29.5 L, RDW Std Deviation 50.2 H, RDW Coeff of Deonte 15.1 H, Plt Count 203, MPV 10.5, Immature Gran % (Auto) 0.500, Neut % (Auto) 87.3 H, Lymph % (Auto) 6.7 L, Sherman % (Auto) 5.3, Eos % (Auto) 0.0, Baso % (Auto) 0.2, Absolute Neuts (auto) 9.6 H, Absolute Lymphs (auto) 0.73 L, Nucleated RBC % 0, Sodium 141, Potassium 4.5, Chloride 104, Carbon Dioxide 36.0 H, Anion Gap 1 L, BUN 21 H, Creatinine 0.67, Estim Creat Clear Calc 56.28, Est GFR (MDRD) Af Amer 112, Est GFR (MDRD) Non-Af 92, BUN/Creatinine Ratio 31.2 H, Glucose 128 H, Calcium 9.2, Magnesium 2.0 Micro: Microbiology 05/15/24 17:42 Sputum, Expectorated/Coughed Gram Stain - Final 05/15/24 17:42 Sputum, Expectorated/Coughed Respiratory Culture - Final Corynebacterium striatum 05/15/24 15:23 Mucosa - Nose SARS-CoV-2, Influenza & RSV (PCR) - Final ABG Data ABG results: ABG 05/16/24 13:48 Specimen Type ART Sample Site L BRACHIAL Cord ABG pH 7.35 Cord ABG pCO2 64.2 H Cord ABG pO2 124 H Cord ABG HCO3 35 H Cord ABG Total CO2 37 Cord ABG Base Excess 10 H Cord ABG O2 Sat 99 H O2 Delivery Device NC Liter Flow 3.0 Radiography Diagnostic Testing: Radiology Impression Echocardiogram 05/16/24 10:25 Interpretation Summary Normal LV size. The left ventricular ejection fraction is 40 %. [place] : Severely Hypokinetic. Mild-Moderate (1-2+) eccentric mitral valve insufficiency. Stage 1 diastolic dysfunction. Contrast injection was performed. Ordering Physician: Anurag Flannery Performed By: Colin Evans RCS Physical Exam Const alert and no apparent distress Constitutional Narrative: Chronically ill in appearance. General Appearance: cooperative HEENT normocephalic and head/scalp atraumatic HEENT Narrative: Stable tracheostomy site. Eyes PERRL, EOMs intact bilaterally and conjunctivae normal Neck supple General: trachea midline Chest inspection of chest normal Resp normal respiratory effort Auscultation: diminished lung sounds Cardio regular rate and regular rhythm GI normal to inspection, nondistended, normoactive bowel sounds Extremity no clubbing, cyanosis or edema Skin no rashes or lesions noted Neuro CN's II-XII intact bilaterally and no focal motor deficits Psych cooperative and affect normal Charges/Coding Visit Charges Inpatient E&M: 04871 Subs Hosp L2
--- NOTE | 2024-05-18 10:16 | CASEMGMT ---
Discharge Planning Referral sent to [facility], [facility]. Carmen Butterfield DC Planning Asst.
--- NOTE | 2024-05-18 11:34 | CASEMGMT ---
1030: [facility] Invasive Vent Rx given to Dr. Flannery for signing. 1100: Nils calls this RN CM and states that they specialize in caring for respiratory needs, including trach patients. However, Nils states that they do not accept most MCR products, as they mainly work/ are in network with [facility]. Pt has [place] [facility]. Nils states that if the pt were to self pay, it would cost 65$ per hour OOP. FINESSE LALA to pt room at this time. Pt states that she would be agreeable to this as a last resort, if all other [facility] companies decline. Nils states that they will verify if the pt insurance is out of network or not and call this RN CM back. 1130: Timmy from [facility]. Timmy states that they will be able to supply the pt with the invasive ventilator but the pt will still need oxygen equipment from a separate company, including a concentrator and portable tanks. TC to Wayne @ [employer]. Wayne states that the pt can keep her NIV as there is nothing that [employer] can do with the machine now. Wayne states that he does believe that [employer] will still be able to supply the oxygen equipment, just not the NIV services d/t the pt being handed to collections for this. Wayne states that he will verify with Juana ([employer]). 1140: Timmy to pt room at this time. 1145: Dr. Flannery and Timmy collaborate. Invasive Ventilator Rx and supply list signed by Dr. Flannery. Both Rx's sent to [facility] via [facility]. Rx and supply list filed into the pt chart. Will follow. Fer AYOUB RN, CM
[2024-05-18] MEDS: predniSONE 20 MG Tablet 40 MG PO (12:07)
[2024-05-18] MEDS: ALPRAZolam 0.5 MG Tablet PO ×3 (12:17→20:37)
--- NOTE | 2024-05-18 14:42 | CASEMGMT ---
Updated clinicals and and ventilator assessments sent to [facility] via [facility] at this time. TC to Timmy at [facility]. Timmy states that their RT came and saw the pt in the hospital today and that their team is conducting a safety scan at the pts home currently. Timmy states that if everything goes well, they will be able to bring the invasive ventilator in on Wednesday and start the trial. TC to Nils [facility]. Senait states that she ran the pt insurance and that the pt is not in network with their services. However, Senait states that she talked to the pt daughter and the pt who stated that the pt may be agreeable to paying the OOP rate. See RN CM note at [id number]. Pt stated that she is willing to do this if all other [facility] companies deny. Nils notified of this and states that they can accept the pt for a tentative SOC date on Wednesday. Case management to follow. As of this time, [facility] has not responded to the referral in [facility]. TC to ISAMAR again. No answer. VM left.
[2024-05-18] MEDS: Acetaminophen 325 MG Tablet 650 MG PO (15:31)
[2024-05-18] MEDS: Atorvastatin Calcium 40 MG Tablet PO (20:33)
[2024-05-18] MEDS: ARIPiprazole 2 MG Tablet PO (20:33)
[2024-05-18] MEDS: Gabapentin 300 MG Capsule PO (20:33)
[2024-05-18] MEDS: Mirtazapine 15 MG Tablet 7.5 MG PO (20:34)
[2024-05-18] MEDS: traZODone 50 MG Tablet PO (20:37)
[2024-05-19 04:00] VITALS: BP 103/49; PULSE 69; RESP 15; TEMP 36.6; O2SAT 97
[2024-05-19 05:00] VITALS: BMI 25.6
[2024-05-19 07:16] VITALS: PULSE 76; RESP 20
[2024-05-19] MEDS: Ipratropium/Albuterol Sulfate 3 ML AMPUL.NEB INHALATION ×3 (07:16→19:10)
[2024-05-19] MEDS: predniSONE 20 MG Tablet 40 MG PO (08:46)
[2024-05-19] MEDS: Pantoprazole Sodium 40 MG Tablet PO (08:46)
[2024-05-19] MEDS: Cholecalciferol (VIT D3) 25 MCG TABLET (1,000 UNITS) PO (08:46)
[2024-05-19] MEDS: Aspirin E.C. 81 MG Tablet PO (08:46)
[2024-05-19] MEDS: guaiFENesin/D-Methorphan TAB.SR.12H 2 TABLET PO ×2 (08:47→20:27)
[2024-05-19] MEDS: Enoxaparin 40 MG/0.4 ML Syringe SC (08:47)
[2024-05-19] MEDS: DULoxetine Hcl 60 MG Capsule PO (08:47)
[2024-05-19] MEDS: Escitalopram Oxalate 20 MG Tablet PO (08:47)
--- NOTE | 2024-05-19 08:51 | PN.HOSP_ITS ---
Subjective Subjective Doing well, no issues overnight Objective Data Objective Data Vital Signs: Vital Signs Temp Pulse Resp BP Pulse Ox O2 Del Method O2 Flow Rate 98 F 76 20 H 103/49 L 97 Mechanical Ventilator 4 05/19/24 04:00 05/19/24 07:16 05/19/24 07:16 05/19/24 04:00 05/19/24 04:00 05/19/24 04:00 05/19/24 04:00 FiO2 3 05/17/24 15:00 Oxygen Flow Rate (L/min) 4 Oxygen Delivery Method Mechanical Ventilator Weight: 139 lb 5.314 oz Body Mass Index (BMI) 25.6 Intake & Output: Intake and Output for Last 24 Hours 05/18/24 05/19/24 05/20/24 03:59 03:59 03:59 Intake Total 270 / 270 660 / 660 Output Total 60 / 60 350 / 350 Balance 210 / 210 310 / 310 Lab / Micro Data 05/18/24 08:15 05/18/24 08:15 Labs: Laboratory Results - last 24 hr 05/18/24 08:15: Sodium 141, Potassium 4.5, Chloride 104, Carbon Dioxide 36.0 H, Anion Gap 1 L, BUN 21 H, Creatinine 0.67, Estim Creat Clear Calc 56.28, Est GFR (MDRD) Af Amer 112, Est GFR (MDRD) Non-Af 92, BUN/Creatinine Ratio 31.2 H, G lucose 128 H, Calcium 9.2, Magnesium 2.0 Micro: Microbiology 05/17/24 13:30 Urine, Clean Catch Urine Culture - Final Presumptive C albicans 05/15/24 17:00 Blood Culture (Wb) - Right Forearm Blood Culture - Preliminary No growth in 48 hours. 05/15/24 17:42 Sputum, Expectorated/Coughed Gram Stain - Final 05/15/24 17:42 Sputum, Expectorated/Coughed Respiratory Culture - Final Corynebacterium striatum 05/15/24 15:23 Mucosa - Nose SARS-CoV-2, Influenza & RSV (PCR) - Final Physical Exam Narrative General: Alert, Oriented x3, Cooperative, No apparent distress HEENT: Atraumatic, PERRLA, EOMI, Normocephalic Oral: Moist Mucosa Neck: Supple, No JVD, tracheostomy Lungs: Diminished, Normal air movement, no rhonchi, No wheeze, No rales Cardiovascular: Regular rate, Regular Rhythm, Normal S1, Normal S2, No murmurs Abdomen: Soft, Non Tender, Non-Distended, No Hepato-splenomegaly Extremities: No edema, Capillary Refill Less than 3 Seconds Skin: No rashes, No breakdown Musculoskeletal: No Tenderness to Palpation of Joints or Extremities Neurological: No focal neurological deficits, Motor Exam 5/5 strength throughout, Sensory exam intact to light touch and pain Psych/Mental Status: Normal Affect, Appropriate Assessment & Plan Assessment/Plan (1) Acute and chronic respiratory failure: PLAN: Plan 1. Acute on chronic hypoxic respiratory failure with tracheostomy in place; concern for recurrent pneumonia; tracheostomy cuff leak ? Admit under inpatient status to ICU. Pulmonology consulted. Patient on 3 L nasal cannula at home and noninvasive ventilation at night. Was hypoxic on 6 L nasal cannula on arrival to ED and was placed on ventilator via tracheostomy. Chest x-ray fairly benign. Have concern that patient may have had transient mucous plugging causing significant worsening shortness of breath with hypoxia. Was treated with complete course of antibiotics for recent suspected Pseudomonas pneumonia and it seems less likely this pneumonia would have recurred. However, this cannot be ruled out. Will treat with IV Zosyn for now. Sputum culture and blood culture ordered. Will continue ventilator overnight and appreciate pulmonology recs tomorrow morning. Patient notably has significant cuff leak and may need tracheostomy exchange but will defer this to pulmonology. Continue home inhalers. N.p.o. status while on ventilator. 05/16/2024: Appreciate status controller assistance. Continue with Zosyn and steroids 05/17/2024: Appreciate pulmonology's assistance, continue with antibiotics and steroids, Awaiting sputum culture 05/18/2024: Sputum culture with corynebacterium striatum, can discontinue Zosyn. Will have to wait through the weekend as her current [employer] company no longer will service her secondary to noncompliance, she does have a new company however they will not evaluate her or set her up with equipment until Wednesday05/19/2024, no change continue to monitor 2. Elevated troponin ? Troponins 125 > 125 on admit. No ischemic EKG changes. No chest pain noted. Suspect elevated troponins are due to demand ischemia from mild hypotension from recent poor p.o. intake. No further management needed. 3. Mild GUME ? Creatinine 1.10 on admit, baseline 0.6-0.8. Suspect prerenal etiology. Given IV fluid resuscitation in the ED, follow-up a.m. BMP and monitor urine output. 4. Mild hyperkalemia ? Potassium 5.6 on admit. No EKG changes noted. Suspect due to mild GUME. Follow-up a.m. BMP. 5. Elevated lactic acid ? Lactic acid 2.8 on admit. No acidosis present. Blood pressure mildly low in ED, improved with IV fluid resuscitation. No need to repeat lactic acid at this time. 6. Debility ? PT/OT/case management consulted. Patient lives at home with significant other and has other family available to help her. Has required [facility] stays in the past but most recently has gone home on past few discharges. Likely will return home after this discharge as well. Chronic medical conditions: ? Chronic anemia: Hemoglobin 9.1 on admit, baseline around 8-9. Stable. ? HFrEF, history of CAD, hyperlipidemia, history of CVA: Last echo on 03/04/2024 showed an EF of 45 to 50%, mild global LV hypokinesis, moderate eccentric MR. BNP 740 on this admit, appears stable from previous and no signs of volume overload on exam. Continue home aspirin and statin once able to resume p.o. intake. Holding home Lasix and Toprol for now, restart when able. Echo on 05/16/2024 with an EF of 40% and stage I diastolic dysfunction ? Anxiety/depression/insomnia: Stable. Continue home aripiprazole at night, duloxetine, escitalopram, gabapentin, mirtazapine and alprazolam as needed once able to resume p.o. intake. ? Seizure disorder: Is reportedly on phenytoin 3 times daily but notably has not had this filled in the last year per pharmacy. Will hold at this time. ? GERD: Continue home PPI. DVT: Lovenox Charges/Coding Visit Charges Inpatient E&M: 23542 [facility] Hosp L1
--- NOTE | 2024-05-19 09:24 | CASEMGMT ---
TC #3 to N to check on referral status. No answer. VM left.
[2024-05-19 10:00] VITALS: BP 98/68; PULSE 100; RESP 20; TEMP 37.1; O2SAT 99
--- NOTE | 2024-05-19 10:24 | PN.CC_ITS ---
Assessment & Plan Assessment/Plan (1) Acute on chronic respiratory failure with hypoxia and hypercapnia: PLAN: Plan RECOMMENDATIONS: 1. Continue supplemental oxygen at 3 L/min during the day with ventilatory support nightly via trach. 2. Continue scheduled bronchodilators and steroids (prednisone 40 mg daily x 5 days). 3. Continue appropriate DVT prophylaxis. 4. Mobilize patient as tolerated. 5. Follow-up in the pulmonary medicine clinic in June as scheduled. 6. Awaiting new DME provider and supplies to allow ventilatory support at home via trach, prior to discharge. IMPRESSIONS: 1. Acute on chronic combined respiratory failure The patient has known end-stage COPD and chronic hypoxemic respiratory failure, along with baseline CO2 retention. In addition, she has a known history of noncompliance with her prescribed outpatient noninvasive ventilator. She was recently admitted to the hospital with pseudomonal pneumonia. At presentation, chest imaging demonstrated a vague left lower lobe infiltrate. Therefore, the patient was restarted on antimicrobial therapy. The patient is doing well from a respiratory perspective and is on her baseline oxygen requirement during the day with ventilatory support nightly. Plan to continue scheduled bronchodilators and steroids. Ideally, the patient needs appropriate supplies to allow her to utilize ventilatory support nightly and as needed throughout the day via her tracheostomy. Case management is currently involved to assist with obtaining the appropriate supplies, prior to discharge. 2. History of end-stage COPD/chronic hypoxemic respiratory failure/obstructive sleep apnea/frequent COPD exacerbations The patient has a known history of end-stage COPD with known outpatient medical noncompliance. She will be maintained on scheduled bronchodilators for now. Management as noted above. 3. History of hemorrhagic CVA/former tobacco dependency/history of cardiomyopathy/anxiety/depression Complicates care, management, recovery and prognosis. Physical therapy to work with the patient. This note was generated with [employer] dictation software. It may contain incorrect words, spelling, and punctuation that were not noted in checking the note before signing. Subjective Subjective The patient was seen and examined at the bedside this morning. Events from the last 24 hours have been reviewed. The patient is currently afebrile, hemodynamically stable and maintaining appropriate oxygen saturations on 3 L/min via nasal cannula. She continues to tolerate ventilatory support overnight. We are awaiting the patient's new DME provider to set her up with a new ventilator with associated supplies, prior to discharge home. Objective Data Objective Data The patient's most recent lab work, culture data and imaging studies have all been personally reviewed. COVID, influenza and RSV PCR's were negative. Blood and sputum cultures are pending. Vital Signs: Vital Signs Temp Pulse Resp BP Pulse Ox O2 Del Method O2 Flow Rate 98 F 76 20 H 103/49 L 97 Mechanical Ventilator 4 05/19/24 04:00 05/19/24 07:16 05/19/24 07:16 05/19/24 04:00 05/19/24 04:00 05/19/24 04:00 05/19/24 04:00 FiO2 3 05/17/24 15:00 Oxygen Flow Rate (L/min) 4 Oxygen Delivery Method Mechanical Ventilator Weight: 139 lb 5.314 oz Body Mass Index (BMI) 25.6 Intake & Output: Intake and Output for Last 24 Hours 05/17/24 05/18/24 05/19/24 23:59 23:59 23:59 Intake Total 150 / 270 570 / 830 260 / 260 Output Total 60 / 60 350 / 350 0 / 0 Balance 90 / 210 220 / 480 260 / 260 Lab / Micro Data Attestation: I reviewed the patient's lab results. 05/18/24 08:15 05/18/24 08:15 Labs: Laboratory Results - last 24 hr 05/18/24 08:15: WBC 11.0, RBC 3.26 L, Hgb 8.7 L, Hct 29.5 L, MCV 90.5, MCH 26.7 L, MCHC 29.5 L, RDW Std Deviation 50.2 H, RDW Coeff of Deonte 15.1 H, Plt Count 203, MPV 10.5, Immature Gran % (Auto) 0.500, Neut % (Auto) 87.3 H, Lymph % (Auto) 6.7 L, [place] % (Auto) 5.3, Eos % (Auto) 0.0, Baso % (Auto) 0.2, Absolute Neuts (auto) 9.6 H, Absolute Lymphs (auto) 0.73 L, Nucleated RBC % 0, Sodium 141, Potassium 4.5, Chloride 104, Carbon Dioxide 36.0 H, Anion Gap 1 L, BUN 21 H , Creatinine 0.67, Estim Creat Clear Calc 56.28, Est GFR (MDRD) Af Amer 112, Est GFR (MDRD) Non-Af 92, BUN/Creatinine Ratio 31.2 H, Glucose 128 H, Calcium 9.2, Magnesium 2.0 Micro: Microbiology 05/17/24 13:30 Urine, Clean Catch Urine Culture - Final Presumptive C albicans 05/15/24 17:00 Blood Culture (Wb) - Right Forearm Blood Culture - Preliminary No growth in 48 hours. 05/15/24 17:42 Sputum, Expectorated/Coughed Gram Stain - Final 05/15/24 17:42 Sputum, Expectorated/Coughed Respiratory Culture - Final Corynebacterium striatum 05/15/24 15:23 Mucosa - Nose SARS-CoV-2, Influenza & RSV (PCR) - Final ABG Data ABG results: ABG 05/16/24 13:48 Specimen Type ART Sample Site L BRACHIAL Cord ABG pH 7.35 Cord ABG pCO2 64.2 H Cord ABG pO2 124 H Cord ABG HCO3 35 H Cord ABG Total CO2 37 Cord ABG Base Excess 10 H Cord ABG O2 Sat 99 H O2 Delivery Device NC Liter Flow 3.0 Radiography Diagnostic Testing: Radiology Impression Echocardiogram 05/16/24 10:25 Interpretation Summary Normal LV size. The left ventricular ejection fraction is 40 %. [place]eda : Severely Hypokinetic. Mild-Moderate (1-2+) eccentric mitral valve insufficiency. Stage 1 diastolic dysfunction. Contrast injection was performed. Ordering Physician: Anurag Flannery Performed By: Colin Evans RCS Physical Exam Const alert and no apparent distress Constitutional Narrative: Chronically ill in appearance. General Appearance: cooperative HEENT normocephalic and head/scalp atraumatic HEENT Narrative: Stable tracheostomy site. Eyes PERRL, EOMs intact bilaterally and conjunctivae normal Neck supple General: trachea midline Chest inspection of chest normal Resp normal respiratory effort Auscultation: diminished lung sounds Cardio regular rate and regular rhythm GI normal to inspection, nondistended, normoactive bowel sounds Extremity no clubbing, cyanosis or edema Skin no rashes or lesions noted Neuro CN's II-XII intact bilaterally and no focal motor deficits Psych cooperative and affect normal Charges/Coding Visit Charges Inpatient E&M: 10627 [facility] Hosp L2
--- NOTE | 2024-05-19 11:52 | CASEMGMT ---
Updated documents sent to [facility] via [employer]. RT from [facility] to the ICU at this time. [facility] RT (Myrtle) states that she was to the pt home already. Myrtle states that the pt 's phone number that we have on file is currently outdated, as the pt SO recently got a new phone number. Cell phone number updated in pt chart. RT given the requested pt information, including trach placement history and pt specialists. The RT states that Timmy from [facility] will also help and be working on getting all of the appropriate/ needed equipment for the pt moving forward. RT verifies that the plan is still to set up the invasive ventilator on Wednesday and then trial the pt on the vent x 24 hours. RT to pt room to reiterate the plan of care. TC to [facility] and Wayne confirms that they will still be able to service the pt DME (Concentrator and portable tanks, etc). [facility] only cannot service the pt old NIV d/t the history of non-compliance. TC attempt #4 to [facility]. [facility] answers and states that they are unable to accept the pt due to staffing. TC to [facility]. Senait from [facility] states that they will still be able to accept the pt for a SOC on Wednesday tentatively. The pt will still need to pay OOP for this. Senait states that she will call the pt, pt , and/or the pt daughter to describe this process. [facility] is aware of the plan with [facility] regarding the invasive ventilator. FINESSE CM to pt room at this time. Pt resting comfortably in bed. Pt educated and updated on plan of care. Pt is aware that [facility] will be coming in on Wednesday to set up the invasive vent and proceed with the trial. Pt is aware that the [facility] will be calling. Pt states that she understands the plan of care and denies further questions or concerns at this time. PLAN: Invasive Ventilator setup Wednesday with 24 hour trial. Tentative discharge home with home health care (SN) through [facility] on Wednesday.
[2024-05-19 13:09] VITALS: PULSE 98; RESP 21
[2024-05-19] MEDS: hydrOXYzine PAM 25 MG Capsule PO (13:45)
[2024-05-19] MEDS: ALPRAZolam 0.5 MG Tablet PO ×2 (13:46→20:26)
[2024-05-19 19:10] VITALS: PULSE 95; RESP 20
[2024-05-19] MEDS: traZODone 50 MG Tablet PO (20:26)
[2024-05-19] MEDS: Mirtazapine 15 MG Tablet 7.5 MG PO (20:26)
[2024-05-19] MEDS: Atorvastatin Calcium 40 MG Tablet PO (20:26)
[2024-05-19] MEDS: ARIPiprazole 2 MG Tablet PO (20:26)
[2024-05-19] MEDS: Gabapentin 300 MG Capsule PO (20:27)
[2024-05-20] VITALS (10 sets, daily range): BP systolic 88–124; BP diastolic 49–57; PULSE 66–101; RESP 15–25; TEMP 36.1–36.7; O2SAT 92–100; BMI 26.2
[2024-05-20] MEDS: Ipratropium/Albuterol Sulfate 3 ML AMPUL.NEB INHALATION ×3 (06:44→19:46)
--- NOTE | 2024-05-20 08:31 | PN.HOSP_ITS ---
Subjective Subjective Doing well, no issues overnight Objective Data Objective Data Vital Signs: Vital Signs Temp Pulse Resp BP Pulse Ox O2 Del Method O2 Flow Rate 98.0 F 66 15 88/49 L 93 Mechanical Ventilator 4 05/20/24 06:00 05/20/24 06:45 05/20/24 06:45 05/20/24 06:00 05/20/24 06:45 05/20/24 06:45 05/20/24 06:45 FiO2 3 05/19/24 10:00 Oxygen Flow Rate (L/min) 4 Oxygen Delivery Method Mechanical Ventilator Weight: 142 lb 6.698 oz Body Mass Index (BMI) 26.2 Intake & Output: Intake and Output for Last 24 Hours 05/19/24 05/20/24 05/21/24 03:59 03:59 03:59 Intake Total 660 / 660 120 / 120 Output Total 350 / 350 Balance 310 / 310 120 / 120 Lab / Micro Data 05/18/24 08:15 05/18/24 08:15 Micro: Microbiology 05/17/24 13:30 Urine, Clean Catch Urine Culture - Final Presumptive C albicans 05/15/24 17:00 Blood Culture (Wb) - Right Forearm Blood Culture - Preliminary No growth in 48 hours. 05/15/24 17:42 Sputum, Expectorated/Coughed Gram Stain - Final 05/15/24 17:42 Sputum, Expectorated/Coughed Respiratory Culture - Final Corynebacterium striatum 05/15/24 15:23 Mucosa - Nose SARS-CoV-2, Influenza & RSV (PCR) - Final Physical Exam Narrative General: Alert, Oriented x3, Cooperative, No apparent distress HEENT: Atraumatic, PERRLA, EOMI, Normocephalic Oral: Moist Mucosa Neck: Supple, No JVD, tracheostomy Lungs: Diminished, Normal air movement, no rhonchi, No wheeze, No rales Cardiovascular: Regular rate, Regular Rhythm, Normal S1, Normal S2, No murmurs Abdomen: Soft, Non Tender, Non-Distended, No Hepato-splenomegaly Extremities: No edema, Capillary Refill Less than 3 Seconds Skin: No rashes, No breakdown Musculoskeletal: No Tenderness to Palpation of Joints or Extremities Neurological: No focal neurological deficits, Motor Exam 5/5 strength throughout, Sensory exam intact to light touch and pain Psych/Mental Status: Normal Affect, Appropriate Assessment & Plan Assessment/Plan (1) Acute and chronic respiratory failure: PLAN: Plan 1. Acute on chronic hypoxic respiratory failure with tracheostomy in place; concern for recurrent pneumonia; tracheostomy cuff leak ? Admit under inpatient status to ICU. Pulmonology consulted. Patient on 3 L nasal cannula at home and noninvasive ventilation at night. Was hypoxic on 6 L nasal cannula on arrival to ED and was placed on ventilator via tracheostomy. Chest x-ray fairly benign. Have concern that patient may have had transient mucous plugging causing significant worsening shortness of breath with hypoxia. Was treated with complete course of antibiotics for recent suspected Pseudomonas pneumonia and it seems less likely this pneumonia would have recurred. However, this cannot be ruled out. Will treat with IV Zosyn for now. Sputum culture and blood culture ordered. Will continue ventilator overnight and appreciate pulmonology recs tomorrow morning. Patient notably has significant cuff leak and may need tracheostomy exchange but will defer this to pulmonology. Continue home inhalers. N.p.o. status while on ventilator. 05/16/2024: Appreciate compensation programs manager assistance. Continue with Zosyn and steroids 05/17/2024: Appreciate pulmonology's assistance, continue with antibiotics and steroids, Awaiting sputum culture 05/18/2024: Sputum culture with corynebacterium striatum, can discontinue Zosyn. Will have to wait through the weekend as her current DME company no longer will service her secondary to noncompliance, she does have a new company however they will not evaluate her or set her up with equipment until Wednesday05/19/2024, no change continue to monitor 05/20/2024: Awaiting delivery of home equipment on Wednesday 2. Elevated troponin ? Troponins 125 > 125 on admit. No ischemic EKG changes. No chest pain noted. Suspect elevated troponins are due to demand ischemia from mild hypotension from recent poor p.o. intake. No further management needed. 3. Mild GUME ? Creatinine 1.10 on admit, baseline 0.6-0.8. Suspect prerenal etiology. Given IV fluid resuscitation in the ED, follow-up a.m. BMP and monitor urine output. 05/20/2024: Resolved 4. Mild hyperkalemia ? Potassium 5.6 on admit. No EKG changes noted. Suspect due to mild GUME. Follow-up a.m. BMP. 5. Elevated lactic acid ? Lactic acid 2.8 on admit. No acidosis present. Blood pressure mildly low in ED, improved with IV fluid resuscitation. No need to repeat lactic acid at this time. 6. Debility ? PT/OT/case management consulted. Patient lives at home with significant other and has other family available to help her. Has required retirement stays in the past but most recently has gone home on past few discharges. Likely will return home after this discharge as well. Chronic medical conditions: ? Chronic anemia: Hemoglobin 9.1 on admit, baseline around 8-9. Stable. ? HFrEF, history of CAD, hyperlipidemia, history of CVA: Last echo on 03/04/2024 showed an EF of 45 to 50%, mild global LV hypokinesis, moderate eccentric MR. BNP 740 on this admit, appears stable from previous and no signs of volume overload on exam. Continue home aspirin and statin once able to resume p.o. intake. Holding home Lasix and Toprol for now, restart when able. Echo on 05/16/2024 with an EF of 40% and stage I diastolic dysfunction ? Anxiety/depression/insomnia: Stable. Continue home aripiprazole at night, duloxetine, escitalopram, gabapentin, mirtazapine and alprazolam as needed once able to resume p.o. intake. ? Seizure disorder: Is reportedly on phenytoin 3 times daily but notably has not had this filled in the last year per pharmacy. Will hold at this time. ? GERD: Continue home PPI. DVT: Lovenox Charges/Coding Visit Charges Inpatient E&M: 08604 [facility] Hosp L1
[2024-05-20] MEDS: Enoxaparin 40 MG/0.4 ML Syringe SC (10:23)
[2024-05-20] MEDS: DULoxetine Hcl 60 MG Capsule PO (10:23)
[2024-05-20] MEDS: Cholecalciferol (VIT D3) 25 MCG TABLET (1,000 UNITS) PO (10:23)
[2024-05-20] MEDS: Pantoprazole Sodium 40 MG Tablet PO (10:23)
[2024-05-20] MEDS: predniSONE 20 MG Tablet 40 MG PO (10:23)
[2024-05-20] MEDS: Escitalopram Oxalate 20 MG Tablet PO (10:24)
[2024-05-20] MEDS: Aspirin E.C. 81 MG Tablet PO (10:24)
[2024-05-20] MEDS: guaiFENesin/D-Methorphan TAB.SR.12H 2 TABLET PO ×2 (10:24→20:11)
[2024-05-20] MEDS: ALPRAZolam 0.5 MG Tablet PO ×2 (10:28→17:32)
[2024-05-20] MEDS: ARIPiprazole 2 MG Tablet PO (20:10)
[2024-05-20] MEDS: Mirtazapine 15 MG Tablet 7.5 MG PO (20:10)
[2024-05-20] MEDS: Atorvastatin Calcium 40 MG Tablet PO (20:11)
[2024-05-20] MEDS: Gabapentin 300 MG Capsule PO (20:11)
[2024-05-20] MEDS: traZODone 50 MG Tablet PO (20:58)
--- NOTE | 2024-05-20 23:55 | CPS ---
This CELLULAR BIOLOGIST placed Cornelio home vent on patient for HS use with a 4L bled in [place] CELLULAR BIOLOGIST
[2024-05-21] VITALS (7 sets, daily range): BP systolic 119–131; BP diastolic 49–70; PULSE 91–103; RESP 16–24; TEMP 36.2–36.8; O2SAT 92–100; BMI 26.6
--- NOTE | 2024-05-21 03:06 | CPS ---
This RT placed patient on home Cornelio vent @10:20pm with 4L bled in
--- NOTE | 2024-05-21 06:57 | CPS ---
on home vent
[2024-05-21] MEDS: Ipratropium/Albuterol Sulfate 3 ML AMPUL.NEB INHALATION ×3 (06:58→20:05)
--- NOTE | 2024-05-21 09:43 | PN.HOSP_ITS ---
Subjective Subjective Doing well, no issues overnight Objective Data Objective Data Vital Signs: Vital Signs Temp Pulse Resp BP Pulse Ox O2 Del Method O2 Flow Rate 96.9 F L 91 19 H 112/51 L 100 Mechanical Ventilator 4 05/20/24 21:00 05/21/24 06:56 05/21/24 06:56 05/20/24 21:00 05/21/24 06:56 05/21/24 06:56 05/21/24 06:56 FiO2 3 05/19/24 10:00 Oxygen Flow Rate (L/min) 4 Oxygen Delivery Method Mechanical Ventilator Weight: 144 lb 13.499 oz Body Mass Index (BMI) 26.6 Intake & Output: Intake and Output for Last 24 Hours 05/20/24 05/21/24 05/22/24 03:59 03:59 03:59 Intake Total 120 / 120 Output Total 725 / 725 Balance 120 / 120 -725 / -725 Lab / Micro Data 05/18/24 08:15 05/18/24 08:15 Micro: Microbiology 05/15/24 17:00 Blood Culture (Wb) - Right Forearm Blood Culture - Final No growth in 5 days. 05/17/24 13:30 Urine, Clean Catch Urine Culture - Final Presumptive C albicans 05/15/24 17:42 Sputum, Expectorated/Coughed Gram Stain - Final 05/15/24 17:42 Sputum, Expectorated/Coughed Respiratory Culture - Final Corynebacterium striatum 05/15/24 15:23 Mucosa - Nose SARS-CoV-2, Influenza & RSV (PCR) - Final Physical Exam Narrative General: Alert, Oriented x3, Cooperative, No apparent distress HEENT: Atraumatic, PERRLA, EOMI, Normocephalic Oral: Moist Mucosa Neck: Supple, No JVD, tracheostomy Lungs: Diminished, Normal air movement, no rhonchi, No wheeze, No rales Cardiovascular: Regular rate, Regular Rhythm, Normal S1, Normal S2, No murmurs Abdomen: Soft, Non Tender, Non-Distended, No Hepato-splenomegaly Extremities: No edema, Capillary Refill Less than 3 Seconds Skin: No rashes, No breakdown Musculoskeletal: No Tenderness to Palpation of Joints or Extremities Neurological: No focal neurological deficits, Motor Exam 5/5 strength throughout, Sensory exam intact to light touch and pain Psych/Mental Status: Normal Affect, Appropriate Assessment & Plan Assessment/Plan (1) Acute and chronic respiratory failure: PLAN: Plan 1. Acute on chronic hypoxic respiratory failure with tracheostomy in place; concern for recurrent pneumonia; tracheostomy cuff leak ? Admit under inpatient status to ICU. Pulmonology consulted. Patient on 3 L nasal cannula at home and noninvasive ventilation at night. Was hypoxic on 6 L nasal cannula on arrival to ED and was placed on ventilator via tracheostomy. Chest x-ray fairly benign. Have concern that patient may have had transient mucous plugging causing significant worsening shortness of breath with hypoxia. Was treated with complete course of antibiotics for recent suspected Pseudomonas pneumonia and it seems less likely this pneumonia would have recurred. However, this cannot be ruled out. Will treat with IV Zosyn for now. Sputum culture and blood culture ordered. Will continue ventilator overnight and appreciate pulmonology recs tomorrow morning. Patient notably has significant cuff leak and may need tracheostomy exchange but will defer this to pulmonology. Continue home inhalers. N.p.o. status while on ventilator. 05/16/2024: Appreciate senior account executive assistance. Continue with Zosyn and steroids 05/17/2024: Appreciate pulmonology's assistance, continue with antibiotics and steroids, Awaiting sputum culture 05/18/2024: Sputum culture with corynebacterium striatum, can discontinue Zosyn. Will have to wait through the weekend as her current DME company no longer will service her secondary to noncompliance, she does have a new company however they will not evaluate her or set her up with equipment until Wednesday05/19/2024, no change continue to monitor 05/20/2024: Awaiting delivery of home equipment on Wednesday05/21/2024: Discharge tomorrow once equipment is delivered to the house 2. Elevated troponin ? Troponins 125 > 125 on admit. No ischemic EKG changes. No chest pain noted. Suspect elevated troponins are due to demand ischemia from mild hypotension from recent poor p.o. intake. No further management needed. 3. Mild GUME ? Creatinine 1.10 on admit, baseline 0.6-0.8. Suspect prerenal etiology. Given IV fluid resuscitation in the ED, follow-up a.m. BMP and monitor urine output. 05/20/2024: Resolved 4. Mild hyperkalemia ? Potassium 5.6 on admit. No EKG changes noted. Suspect due to mild GUME. Follow-up a.m. BMP. 5. Elevated lactic acid ? Lactic acid 2.8 on admit. No acidosis present. Blood pressure mildly low in ED, improved with IV fluid resuscitation. No need to repeat lactic acid at this time. 6. Debility ? PT/OT/case management consulted. Patient lives at home with significant other and has other family available to help her. Has required correction stays in the past but most recently has gone home on past few discharges. Likely will return home after this discharge as well. Chronic medical conditions: ? Chronic anemia: Hemoglobin 9.1 on admit, baseline around 8-9. Stable. ? HFrEF, history of CAD, hyperlipidemia, history of CVA: Last echo on 03/04/2024 showed an EF of 45 to 50%, mild global LV hypokinesis, moderate eccentric MR. BNP 740 on this admit, appears stable from previous and no signs of volume overload on exam. Continue home aspirin and statin once able to resume p.o. intake. Holding home Lasix and Toprol for now, restart when able. Echo on 05/16/2024 with an EF of 40% and stage I diastolic dysfunction ? Anxiety/depression/insomnia: Stable. Continue home aripiprazole at night, duloxetine, escitalopram, gabapentin, mirtazapine and alprazolam as needed once able to resume p.o. intake. ? Seizure disorder: Is reportedly on phenytoin 3 times daily but notably has not had this filled in the last year per pharmacy. Will hold at this time. ? GERD: Continue home PPI. DVT: Lovenox Charges/Coding Visit Charges Inpatient E&M: 24077 Subs Hosp L2
[2024-05-21] MEDS: predniSONE 20 MG Tablet 40 MG PO (10:48)
[2024-05-21] MEDS: Escitalopram Oxalate 20 MG Tablet PO (10:50)
[2024-05-21] MEDS: Aspirin E.C. 81 MG Tablet PO (10:50)
[2024-05-21] MEDS: guaiFENesin/D-Methorphan TAB.SR.12H 2 TABLET PO ×2 (10:50→21:04)
[2024-05-21] MEDS: Pantoprazole Sodium 40 MG Tablet PO (10:50)
[2024-05-21] MEDS: ALPRAZolam 0.5 MG Tablet PO ×3 (10:50→22:03)
[2024-05-21] MEDS: DULoxetine Hcl 60 MG Capsule PO (10:50)
[2024-05-21] MEDS: Cholecalciferol (VIT D3) 25 MCG TABLET (1,000 UNITS) PO (10:50)
[2024-05-21] MEDS: Enoxaparin 40 MG/0.4 ML Syringe SC (10:50)
[2024-05-21] MEDS: ARIPiprazole 2 MG Tablet PO (21:03)
[2024-05-21] MEDS: Mirtazapine 15 MG Tablet 7.5 MG PO (21:04)
[2024-05-21] MEDS: Atorvastatin Calcium 40 MG Tablet PO (21:04)
[2024-05-21] MEDS: traZODone 50 MG Tablet PO (21:04)
[2024-05-21] MEDS: 0.9% Saline Lock 10 ML Syringe IV (21:06)
[2024-05-21] MEDS: Gabapentin 300 MG Capsule PO (21:06)
--- NOTE | 2024-05-21 23:20 | CPS ---
Placed pt on home unit NIV with 4L bleed in, cuff was inflated and pt was put on NIV for the night and was deep suctioned X3 for lg amt thick dk yellow.
[2024-05-22] VITALS (12 sets, daily range): BP systolic 101–120; BP diastolic 52–73; PULSE 88–121; RESP 17–24; TEMP 36.6–36.8; O2SAT 82–100; BMI 26.5
--- NOTE | 2024-05-22 02:55 | CPS ---
pt on home NIV 4L 94% pt still sleeping
[2024-05-22] MEDS: ALPRAZolam 0.5 MG Tablet PO ×2 (06:18→16:07)
[2024-05-22 06:58] LABS: Absolute Lymphocyte Count 1.56 X10^3/uL (0.83-4.51); Absolute Neutrophil Count 5.6 X10^3/uL (2.0-7.7); Basophil# 0.01 X10^3/uL; Basophil% 0.1 % (0-1); Eosinophil# 0.15 X10^3/uL; Eosinophils% 1.9 % (0-5); Hematocrit 28.3 % (37-47); Hemoglobin 7.9 g/dL (12.0-15.0); Lymphocyte # 1.56 X10^3/ul (0.83-4.51); Lymphocyte % 19.3 % (19-41); Mean Corp Hgb Conc 27.9 g/dL (32-36); Mean Corpuscular Hgb 25.7 pg (27.0-32.0); Mean Corpuscular Volume 92.2 fL (81-99); Mean Platelet Vol. 10.8 fl (6.2-12.0); Monocyte# 0.71 X10^3/uL; Monocyte% 8.8 % (0-10); NRBC Flagged by Analyzer 0 % (0-5); Neutrophil # 5.61 X10^3/uL (2.7-7.7); Neutrophil % 69.2 % (47-70); Platelet Count 205 K/mm3 (150-450); RBC Distribution Width CV 14.4 % (11.6-14.6); RBC Distribution Width SD 48.9 fl (35.1-43.9); Red Blood Count 3.07 M/mm3 (4.2-5.4); White Blood Count 8.1 K/mm3 (4.4-11.0)
[2024-05-22] MEDS: Ipratropium/Albuterol Sulfate 3 ML AMPUL.NEB INHALATION (07:15)
[2024-05-22 07:43] LABS: Anion Gap 0 (5-15); BUN 26 mg/dL (7-18); BUN/Creat Ratio 49.3 RATIO (10-20); Calcium,Total 8.8 mg/dL (8.5-10.1); Chloride 104 mmol/L (98-107); Creatinine, Serum 0.53 mg/dL (0.55-1.02); EST Glomerular Filtration Rate 122 mL/min (>60); Est Glom Filt Rate - Afr Amer 148 mL/min (>60); Estimated Creatinine Clearance 57.46 ml/min; Glucose 108 mg/dL (74-106); Potassium 3.8 mmol/L (3.5-5.1); Sodium Level 143 mmol/L (136-145)
[2024-05-22] MEDS: DULoxetine Hcl 60 MG Capsule PO (09:16)
[2024-05-22] MEDS: Escitalopram Oxalate 20 MG Tablet PO (09:16)
[2024-05-22] MEDS: guaiFENesin/D-Methorphan TAB.SR.12H 2 TABLET PO ×2 (09:16→20:53)
[2024-05-22] MEDS: Enoxaparin 40 MG/0.4 ML Syringe SC (09:16)
[2024-05-22] MEDS: Cholecalciferol (VIT D3) 25 MCG TABLET (1,000 UNITS) PO (09:16)
[2024-05-22] MEDS: Aspirin E.C. 81 MG Tablet PO (09:16)
--- NOTE | 2024-05-22 09:16 | PN.HOSP_ITS ---
Reason for Visit Reason for Visit: Diagnoses Acute and chronic respiratory failure, unspecified whether with hypoxia or hypercapnia (05/15/24) Acute and chronic respiratory failure with hypoxia (05/15/24) Acute and chronic respiratory failure with hypercapnia (05/15/24) Subjective Subjective Breathing ok. Objective Data Objective Data Vital Signs: Vital Signs Temp Pulse Resp BP Pulse Ox O2 Del Method O2 Flow Rate 36.8 C 109 H 20 H 120/53 L 94 High Flow 15 05/22/24 09:15 05/22/24 09:15 05/22/24 09:15 05/22/24 09:15 05/22/24 09:15 05/22/24 09:15 05/22/24 09:15 FiO2 3 05/19/24 10:00 Oxygen Flow Rate (L/min) 15 Oxygen Delivery Method High Flow Weight: 65.4 kg Body Mass Index (BMI) 26.5 Intake & Output: Intake and Output for Last 24 Hours 05/20/24 05/21/24 05/22/24 23:59 23:59 23:59 Intake Total 120 / 120 360 / 360 Output Total 1025 / 1025 Balance 120 / 120 -665 / -665 Lab / Micro Data 05/22/24 06:08 05/22/24 06:08 Labs: Laboratory Results - last 24 hr 05/22/24 06:08: WBC 8.1, RBC 3.07 L, Hgb 7.9 L, Hct 28.3 L, MCV 92.2, MCH 25.7 L , MCHC 27.9 L D, RDW Std Deviation 48.9 H, RDW Coeff of Deonte 14.4, Plt Count 205, MPV 10.8, Immature Gran % (Auto) 0.700, Neut % (Auto) 69.2, Lymph % (Auto) 19.3, Sanders % (Auto) 8.8, Eos % (Auto) 1.9, Baso % (Auto) 0.1, Absolute Neuts (auto) 5.6, Absolute Lymphs (auto) 1.56, Nucleated RBC % 0, Sodium 143, Potassium 3.8, Chloride 104, Carbon Dioxide 39.0 H, Anion Gap 0 L, BUN 26 H, Creatinine 0.53 L, Estim Creat Clear Calc 57.46, Est GFR (MDRD) Af Amer 148, Est GFR (MDRD) Non-Af 122, BUN/Creatinine Ratio 49.3 H, Glucose 108 H, Calcium 8.8 Micro: Microbiology 05/15/24 17:00 Blood Culture (Wb) - Right Forearm Blood Culture - Final No growth in 5 days. 05/17/24 13:30 Urine, Clean Catch Urine Culture - Final Presumptive C albicans 05/15/24 17:42 Sputum, Expectorated/Coughed Gram Stain - Final 05/15/24 17:42 Sputum, Expectorated/Coughed Respiratory Culture - Final Corynebacterium striatum 05/15/24 15:23 Mucosa - Nose SARS-CoV-2, Influenza & RSV (PCR) - Final Physical Exam Const alert and no apparent distress Constitutional Narrative: on tracheostomy Resp normal respiratory effort, no retractions, no use of accessory muscles and clear to auscultation bilaterally Cardio regular rate, regular rhythm, S1 normal heart sound and S2 normal heart sound GI normal to inspection, nondistended, normoactive bowel sounds, soft to palpation, non-tender and non-distended Extremity normal to inspection and full ROM Neuro Sensorium / Orientation: awake and alert Assessment & Plan Assessment/Plan (1) Acute and chronic respiratory failure: PLAN: Plan Acute on chronic hypoxic respiratory failure with tracheostomy in place * suspect due to mucous plugging, pneumonia ruled out. * Hospital course: * 05/16/2024: Appreciate stud dairy cattle farmer assistance. Continue with Zosyn and steroids * 05/17/2024: Appreciate pulmonology's assistance, continue with antibiotics and steroids, Awaiting sputum culture * 05/18/2024: Sputum culture with corynebacterium striatum, can discontinue Zosyn. Will have to wait through the weekend as her current [employer] company no longer will service her secondary to noncompliance, she does have a new company however they will not evaluate her or set her up with equipment until Wednesday * 05/19/2024, no change continue to monitor * 05/20/2024: Awaiting delivery of home equipment on Wednesday * 05/22/2024: pt will need an overnight ventilatory study before she can be discharged. Discharge tomorrow after study completed and once equipment is delivered to the house NSTEMI * type II from respiratory failure * no additional work up. GUME: ruled out Chronic medical conditions: * Chronic anemia: stable. * HFrEF, history of CAD, hyperlipidemia, history of CVA: Last echo on 03/04/2024 showed an EF of 45 to 50%, mild global LV hypokinesis, moderate eccentric MR. BNP 740 on this admit, appears stable from previous and no signs of volume overload on exam. Continue home aspirin and statin once able to resume p.o. intake. Holding home Lasix and Toprol for now, restart when able. Echo on 05/16/2024 with an EF of 40% and stage I diastolic dysfunction * Anxiety/depression/insomnia: Stable. Continue home aripiprazole at night, duloxetine, escitalopram, gabapentin, mirtazapine and alprazolam as needed once able to resume p.o. intake. * Seizure disorder: Is reportedly on phenytoin 3 times daily but notably has not had this filled in the last year per pharmacy. Will hold at this time. * GERD: Continue home PPI. DVT: Lovenox Charges/Coding Visit Charges Inpatient E&M: 25628 Subs Hosp L2
[2024-05-22] MEDS: predniSONE 20 MG Tablet 40 MG PO (09:17)
[2024-05-22] MEDS: Pantoprazole Sodium 40 MG Tablet PO (09:17)
--- NOTE | 2024-05-22 14:00 | NURSING ---
Caregivers are competent in trach care, airway management, suctioning, and using an ambu bag
[2024-05-22] MEDS: Acetaminophen 325 MG Tablet 650 MG PO (16:04)
[2024-05-22] MEDS: Mirtazapine 15 MG Tablet 7.5 MG PO (20:54)
[2024-05-22] MEDS: Gabapentin 300 MG Capsule PO (20:54)
[2024-05-22] MEDS: Atorvastatin Calcium 40 MG Tablet PO (20:54)
[2024-05-22] MEDS: ARIPiprazole 2 MG Tablet PO (20:59)
[2024-05-22] MEDS: traZODone 50 MG Tablet PO (20:59)
[2024-05-23] VITALS (9 sets, daily range): BP systolic 103–126; BP diastolic 47–53; PULSE 88–115; RESP 15–24; TEMP 36.1–36.5; O2SAT 92–100; BMI 26.5
--- NOTE | 2024-05-23 01:06 | CPS ---
RT found patient on home ventilator equipment trial through her trach. The home vent was found to have been set on ACVC tidal volume 400, rate of 15, PEEP of 8, inspiratory time of 1 second, with a 4 liter oxygen bleed in. Her vitals were stable on these settings at this time.
[2024-05-23] MEDS: ALPRAZolam 0.5 MG Tablet PO ×3 (03:01→21:51)
[2024-05-23] MEDS: Escitalopram Oxalate 20 MG Tablet PO (09:52)
[2024-05-23] MEDS: Cholecalciferol (VIT D3) 25 MCG TABLET (1,000 UNITS) PO (09:52)
[2024-05-23] MEDS: Pantoprazole Sodium 40 MG Tablet PO (09:52)
[2024-05-23] MEDS: Enoxaparin 40 MG/0.4 ML Syringe SC (09:52)
[2024-05-23] MEDS: DULoxetine Hcl 60 MG Capsule PO (09:52)
[2024-05-23] MEDS: Aspirin E.C. 81 MG Tablet PO (09:52)
[2024-05-23] MEDS: guaiFENesin/D-Methorphan TAB.SR.12H 2 TABLET PO ×2 (09:53→21:05)
--- NOTE | 2024-05-23 10:47 | CASEMGMT ---
Addendum entered by Carla Azevedo 05/23/24 12:09: FINESSE LALA received call back from Radha and she is able to order supplies for patient through [employer] and will be delivered to patient in 2-3 days. FINESSE LALA updated Timmy a Gt. Original Note: RN SPIKE update from Timmy with [employer] that [facility] will need to supply trach supplies for the first month due to billing codes and then [employer] will be able to supply. RN SPIKE called [facility] to inquire if they are able to supply trach supplies for patient. Per Senait they are not able to order supplies until patient is opened by nursing and requested RN CM facilitate setup with DME company. FINESSE LALA in to patient's room to inquire what DME agency that trach supplies were through. Antelmo Alaniz, at bedside and could not remember supplier but stated that [facility] was ordering trach supplies. FINESSE LALA called [facility] to inquire DME company for trach supplies, per Concepción, supplies were ordered through [employer] [phone]. FINESSE LALA called [facility] to inquire what trach supplies patient would need at discharge as her trach was downside during this hospitalization. Per [facility], patient has a [id number] trach kit. FINESSE LALA called [facility] and was transferred to the Home supply department with [facility]. RN SPIKE provided patient information and patient could not be found in their system. FINESSE LALA transferred to department for [facility] patients, [facility] [phone]. RN SPIKE called [facility] and patient is not active with them as well. FINESSE LALA called [facility] again a spoke with Radha. Per Shirley, [email or web address] is a third constitution party supplier for trach supplies that they use to supply trach supplies to patient. RN SPIKE updated Radha that [facility] in requiring [facility] to order trach supplies for the first month and new HH company is not able to supply till patient is opened. Per Radha, since patient is still currently active with [facility] that she would attempt to order supplies for patient through [employer]. FINESSE LALA provided trach supply of [id number] to Radha and FINESSE LALA direct number to confirm setup, awaiting call back. CM will continue to follow this patient and plan for a safe discharge.
--- NOTE | 2024-05-23 13:17 | PN.HOSP_ITS ---
Reason for Visit Reason for Visit: Diagnoses Acute and chronic respiratory failure, unspecified whether with hypoxia or hypercapnia (05/15/24) Acute and chronic respiratory failure with hypoxia (05/15/24) Acute and chronic respiratory failure with hypercapnia (05/15/24) Subjective Subjective Oxygen drops with activity. Feels dizzy when she stands up. Objective Data Objective Data Vital Signs: Vital Signs Temp Pulse Resp BP Pulse Ox O2 Del Method O2 Flow Rate 36.5 C L 91 15 126/50 H 98 Mechanical Ventilator 4 05/23/24 03:00 05/23/24 03:00 05/23/24 03:00 05/23/24 03:00 05/23/24 03:00 05/23/24 10:00 05/23/24 10:00 FiO2 3 05/19/24 10:00 Oxygen Flow Rate (L/min) 4 Oxygen Delivery Method Mechanical Ventilator Weight: 65.4 kg Body Mass Index (BMI) 26.5 Intake & Output: Intake and Output for Last 24 Hours 05/21/24 05/22/24 05/23/24 23:59 23:59 23:59 Intake Total 360 / 360 720 / 720 360 / 360 Output Total 1025 / 1025 250 / 250 Balance -665 / -665 720 / 720 110 / 110 Lab / Micro Data 05/22/24 06:08 05/22/24 06:08 Micro: Microbiology 05/15/24 17:00 Blood Culture (Wb) - Right Forearm Blood Culture - Final No growth in 5 days. 05/17/24 13:30 Urine, Clean Catch Urine Culture - Final Presumptive C albicans 05/15/24 17:42 Sputum, Expectorated/Coughed Gram Stain - Final 05/15/24 17:42 Sputum, Expectorated/Coughed Respiratory Culture - Final Corynebacterium striatum 05/15/24 15:23 Mucosa - Nose SARS-CoV-2, Influenza & RSV (PCR) - Final Physical Exam Const alert and no apparent distress Constitutional Narrative: up in bed eating lunch. HEENT head/scalp atraumatic and moist oral mucous membranes Neck Neck Narrative: trach in place with pessy-telly valve. Resp normal respiratory effort and no retractions Resp Narrative: bilateral crackles. Cardio regular rate, regular rhythm, S1 normal heart sound and S2 normal heart sound GI normal to inspection, nondistended, normoactive bowel sounds, soft to palpation, non-tender and non-distended Extremity normal to inspection and full ROM Neuro Sensorium / Orientation: awake and alert Assessment & Plan Assessment/Plan (1) Acute and chronic respiratory failure: PLAN: Plan Acute on chronic hypoxic respiratory failure with tracheostomy in place * suspect due to mucous plugging, pneumonia ruled out. * Hospital course: * 05/16/2024: Appreciate department manager assistance. Continue with Zosyn and steroids * 05/17/2024: Appreciate pulmonology's assistance, continue with antibiotics and steroids, Awaiting sputum culture * 05/18/2024: Sputum culture with corynebacterium striatum, can discontinue Zosyn. Will have to wait through the weekend as her current DME company no longer will service her secondary to noncompliance, she does have a new company however they will not evaluate her or set her up with equipment until Wednesday * 05/19/2024, no change continue to monitor * 05/20/2024: Awaiting delivery of home equipment on Wednesday * 05/22/2024: pt will need an overnight ventilatory study before she can be discharged. * 05/23: had the overnight study, but oxygen drops considerably with activity. Add PEP. Recheck CXR. NSTEMI * type II from respiratory failure * no additional work up. GUME: ruled out Chronic medical conditions: * Chronic anemia: stable. * HFrEF, history of CAD, hyperlipidemia, history of CVA: Last echo on 03/04/2024 showed an EF of 45 to 50%, mild global LV hypokinesis, moderate eccentric MR. BNP 740 on this admit, appears stable from previous and no signs of volume overload on exam. Continue home aspirin and statin once able to resume p.o. intake. Echo on 05/16/2024 with an EF of 40% and stage I diastolic dysfunction * Anxiety/depression/insomnia: Stable. Continue home aripiprazole at night, duloxetine, escitalopram, gabapentin, mirtazapine and alprazolam as needed once able to resume p.o. intake. * Seizure disorder: Is reportedly on phenytoin 3 times daily but notably has not had this filled in the last year per pharmacy. Will hold at this time. * GERD: Continue home PPI. DVT: Lovenox Charges/Coding Visit Charges Inpatient E&M: 12421 Subs Hosp L2
--- NOTE | 2024-05-23 13:20 | RAD_ITS ---
HISTORY: hypoxia. TECHNIQUE: XR Chest 2 Views. COMPARISON: 04/14/2024. FINDINGS: LINES/TUBES: Tracheostomy tube tip at the level of the clavicular heads. CARDIOMEDIASTINAL BORDERS: Stable. LUNGS: Mild hyperinflation with increased left upper and decreased right basilar opacities. PLEURA: No pleural effusion or pneumothorax. OTHER: Gaseous distention of bowel the upper abdomen. RAD/Chest PA and Lateral IMPRESSION: Increased left upper and decreased left basilar opacities. Electronically Signed: Barb Rosenthal MD at 7:25 EST ,
[2024-05-23] MEDS: Furosemide 40 MG/4 ML Vial IV (15:16)
[2024-05-23] MEDS: Albuterol 2.5 MG/3 ML VIAL.NEB. INHALATION ×2 (15:40→23:09)
[2024-05-23] MEDS: Ipratropium/Albuterol Sulfate 3 ML AMPUL.NEB INHALATION (19:29)
[2024-05-23] MEDS: ARIPiprazole 2 MG Tablet PO (21:05)
[2024-05-23] MEDS: Gabapentin 300 MG Capsule PO (21:05)
[2024-05-23] MEDS: Atorvastatin Calcium 40 MG Tablet PO (21:06)
[2024-05-23] MEDS: Furosemide 20 MG Tablet PO (21:06)
[2024-05-23] MEDS: Mirtazapine 15 MG Tablet 7.5 MG PO (21:08)
--- NOTE | 2024-05-23 23:48 | CPS ---
Patient placed on home vent at 23:26. Initially vent was alarming low tidal volume. Patient taken off temporarily to suction and PRN aerosal treatment given. Patient had copious thick secretions with expiratory wheezes at that time. When placed back on vent VT improved to normal range. spo2 100% with 4L bleed on vent.
[2024-05-24] VITALS (18 sets, daily range): BP systolic 93–107; BP diastolic 47–57; PULSE 86–102; RESP 15–24; TEMP 36.5–36.9; O2SAT 77–100; BMI 28.1
[2024-05-24] MEDS: Acetaminophen 325 MG Tablet 650 MG PO (03:37)
[2024-05-24] MEDS: Albuterol 2.5 MG/3 ML VIAL.NEB. INHALATION (04:15)
[2024-05-24] MEDS: Ipratropium/Albuterol Sulfate 3 ML AMPUL.NEB INHALATION ×3 (07:15→19:57)
--- NOTE | 2024-05-24 07:54 | PN.HOSP_ITS ---
Reason for Visit Reason for Visit: Diagnoses Acute and chronic respiratory failure, unspecified whether with hypoxia or hypercapnia (05/15/24) Acute and chronic respiratory failure with hypoxia (05/15/24) Acute and chronic respiratory failure with hypercapnia (05/15/24) Subjective Subjective Has required high-flow oxygen with activity (up to 10liters). Now to 8 liters at rest. Feeling anxious. Objective Data Objective Data Vital Signs: Vital Signs Temp Pulse Resp BP Pulse Ox O2 Del Method O2 Flow Rate 36.5 C L 98 21 H 102/50 L 91 High Flow 8 05/24/24 03:00 05/24/24 07:30 05/24/24 07:30 05/24/24 03:00 05/24/24 07:52 05/24/24 07:52 05/24/24 07:52 FiO2 3 05/19/24 10:00 Oxygen Flow Rate (L/min) 8 Oxygen Delivery Method High Flow Weight: 69.4 kg Body Mass Index (BMI) 28.1 Intake & Output: Intake and Output for Last 24 Hours 05/22/24 05/23/24 05/24/24 23:59 23:59 23:59 Intake Total 720 / 720 600 / 600 Output Total 500 / 500 300 / 300 Balance 720 / 720 100 / 100 -300 / -300 Lab / Micro Data 05/22/24 06:08 05/22/24 06:08 Micro: Microbiology 05/15/24 17:00 Blood Culture (Wb) - Right Forearm Blood Culture - Final No growth in 5 days. 05/17/24 13:30 Urine, Clean Catch Urine Culture - Final Presumptive C albicans 05/15/24 17:42 Sputum, Expectorated/Coughed Gram Stain - Final 05/15/24 17:42 Sputum, Expectorated/Coughed Respiratory Culture - Final Corynebacterium striatum 05/15/24 15:23 Mucosa - Nose SARS-CoV-2, Influenza & RSV (PCR) - Final Radiography Diagnostic Testing: Radiology Impression Chest X-Ray 05/23/24 13:20 IMPRESSION: Increased left upper and decreased left basilar opacities. Electronically Signed: Barb Rosenthal MD at 7:25 EST Reading Location ID and State: [facility] / [place] Tel , Service support , Physical Exam Const alert and no apparent distress HEENT head/scalp atraumatic and moist oral mucous membranes Neck Neck Narrative: trach in place, capped. Resp Resp Narrative: diminished BS bilaterally. Cardio regular rate, regular rhythm, S1 normal heart sound and S2 normal heart sound GI normal to inspection, nondistended, normoactive bowel sounds, soft to palpation, non-tender, non-distended and hepatosplenomegaly Extremity normal to inspection Neuro oriented x3, CN's II-XII intact bilaterally, moves all extremities and no focal motor deficits Assessment & Plan Assessment/Plan (1) Acute and chronic respiratory failure: PLAN: Plan Acute on chronic hypoxic respiratory failure with tracheostomy in place * suspect due to mucous plugging, pneumonia ruled out. * Hospital course: * 05/16/2024: Appreciate marine steam fitter helper assistance. Continue with Zosyn and steroids * 05/17/2024: Appreciate pulmonology's assistance, continue with antibiotics and steroids, Awaiting sputum culture * 05/18/2024: Sputum culture with corynebacterium striatum, can discontinue Zosyn. Will have to wait through the weekend as her current DME company no longer will service her secondary to noncompliance, she does have a new company however they will not evaluate her or set her up with equipment until Wednesday * 05/19/2024, no change continue to monitor * 05/20/2024: Awaiting delivery of home equipment on Wednesday * 05/22/2024: pt will need an overnight ventilatory study before she can be discharged. * 05/23: had the overnight study, but oxygen drops considerably with activity. Add PEP. CXR showed increased left sided opacities. Received furosemide IV x 1, then placed back on her oral medications. * 05/24: concern for COPD exacerbation given diminished BS. Will add methylprednisolone. Encourage pulmonary toilet. NSTEMI * type II from respiratory failure * no additional work up. GUME: ruled out Anxiety: * continue PRN alpazolam. Chronic medical conditions: * Chronic anemia: stable. * HFrEF, history of CAD, hyperlipidemia, history of CVA: Last echo on 03/04/2024 showed an EF of 45 to 50%, mild global LV hypokinesis, moderate eccentric MR. BNP 740 on this admit, appears stable from previous and no signs of volume overload on exam. Continue home aspirin and statin once able to resume p.o. intake. Echo on 05/16/2024 with an EF of 40% and stage I diastolic dysfunction * Anxiety/depression/insomnia: Stable. Continue home aripiprazole at night, duloxetine, escitalopram, gabapentin, mirtazapine and alprazolam as needed once able to resume p.o. intake. * Seizure disorder: Is reportedly on phenytoin 3 times daily but notably has not had this filled in the last year per pharmacy. Will hold at this time. * GERD: Continue home PPI. DVT: Leninox GABRIELA pt's fiance and brother at bedside. Charges/Coding Visit Charges Inpatient E&M: 64212 Subs Hosp L2
[2024-05-24] MEDS: Furosemide 20 MG Tablet PO ×2 (08:48→17:16)
[2024-05-24] MEDS: Aspirin E.C. 81 MG Tablet PO (09:26)
[2024-05-24] MEDS: DULoxetine Hcl 60 MG Capsule PO (09:26)
[2024-05-24] MEDS: Enoxaparin 40 MG/0.4 ML Syringe SC (09:27)
[2024-05-24] MEDS: guaiFENesin/D-Methorphan TAB.SR.12H 2 TABLET PO ×2 (09:27→21:19)
[2024-05-24] MEDS: Pantoprazole Sodium 40 MG Tablet PO (09:27)
[2024-05-24] MEDS: Escitalopram Oxalate 20 MG Tablet PO (09:27)
[2024-05-24] MEDS: Cholecalciferol (VIT D3) 25 MCG TABLET (1,000 UNITS) PO (09:28)
[2024-05-24] MEDS: Metoprolol(XL)Succ 25 MG Tablet PO (11:32)
[2024-05-24] MEDS: ALPRAZolam 0.5 MG Tablet PO ×2 (13:15→18:06)
[2024-05-24] MEDS: 0.9% Saline Lock 10 ML Syringe IV (14:09)
--- NOTE | 2024-05-24 19:52 | CPS ---
Decreased O2 to 6 lpm.
[2024-05-24] MEDS: Gabapentin 300 MG Capsule PO (21:18)
[2024-05-24] MEDS: Mirtazapine 15 MG Tablet 7.5 MG PO (21:18)
[2024-05-24] MEDS: Atorvastatin Calcium 40 MG Tablet PO (21:19)
[2024-05-24] MEDS: ARIPiprazole 2 MG Tablet PO (21:19)
[2024-05-25] VITALS (13 sets, daily range): BP systolic 99–137; BP diastolic 50–94; PULSE 72–107; RESP 15–20; TEMP 36.4–36.9; O2SAT 90–100
[2024-05-25] MEDS: Ipratropium/Albuterol Sulfate 3 ML AMPUL.NEB INHALATION ×4 (02:00→19:55)
[2024-05-25] MEDS: Furosemide 20 MG Tablet PO (08:01)
--- NOTE | 2024-05-25 08:08 | PN.HOSP_ITS ---
Reason for Visit Reason for Visit: Diagnoses Acute and chronic respiratory failure, unspecified whether with hypoxia or hypercapnia (05/15/24) Acute and chronic respiratory failure with hypoxia (05/15/24) Acute and chronic respiratory failure with hypercapnia (05/15/24) Subjective Subjective Still with anxiety Objective Data Objective Data Vital Signs: Vital Signs Temp Pulse Resp BP Pulse Ox O2 Del Method O2 Flow Rate 36.5 C L 72 18 99/54 L 99 Mechanical Ventilator 4 05/25/24 03:10 05/25/24 03:10 05/25/24 03:10 05/25/24 03:10 05/25/24 03:10 05/25/24 03:10 05/25/24 03:10 FiO2 3 05/19/24 10:00 Oxygen Flow Rate (L/min) 4 Oxygen Delivery Method Mechanical Ventilator Weight: 69.4 kg Body Mass Index (BMI) 28.1 Intake & Output: Intake and Output for Last 24 Hours 05/23/24 05/24/24 05/25/24 23:59 23:59 23:59 Intake Total 600 / 600 880 / 880 Output Total 500 / 500 1650 / 1650 100 / 100 Balance 100 / 100 -770 / -770 -100 / -100 Lab / Micro Data 05/22/24 06:08 05/22/24 06:08 Micro: Microbiology 05/15/24 17:00 Blood Culture (Wb) - Right Forearm Blood Culture - Final No growth in 5 days. 05/17/24 13:30 Urine, Clean Catch Urine Culture - Final Presumptive C albicans 05/15/24 17:42 Sputum, Expectorated/Coughed Gram Stain - Final 05/15/24 17:42 Sputum, Expectorated/Coughed Respiratory Culture - Final Corynebacterium striatum 05/15/24 15:23 Mucosa - Nose SARS-CoV-2, Influenza & RSV (PCR) - Final Physical Exam Const alert and no apparent distress HEENT head/scalp atraumatic and moist oral mucous membranes Resp normal respiratory effort and no retractions Resp Narrative: diminished bilaterally. Cardio regular rate, regular rhythm, S1 normal heart sound and S2 normal heart sound GI normal to inspection, nondistended, normoactive bowel sounds, soft to palpation, non-tender, non-distended and hepatosplenomegaly Assessment & Plan Assessment/Plan (1) Acute and chronic respiratory failure: PLAN: Plan Acute on chronic hypoxic respiratory failure with tracheostomy in place * suspect due to mucous plugging, pneumonia ruled out. * Hospital course: * 05/16/2024: Appreciate tour director assistance. Continue with Zosyn and steroids * 05/17/2024: Appreciate pulmonology's assistance, continue with antibiotics and steroids, Awaiting sputum culture * 05/18/2024: Sputum culture with corynebacterium striatum, can discontinue Zosyn. Will have to wait through the weekend as her current [employer] company no longer will service her secondary to noncompliance, she does have a new company however they will not evaluate her or set her up with equipment until Wednesday * 05/19/2024, no change continue to monitor * 05/20/2024: Awaiting delivery of home equipment on Wednesday * 05/22/2024: pt will need an overnight ventilatory study before she can be discharged. * 05/23: had the overnight study, but oxygen drops considerably with activity. Add PEP. CXR showed increased left sided opacities. Received furosemide IV x 1, then placed back on her oral medications. * 05/24: concern for COPD exacerbation given diminished BS. Will add methylprednisolone. Encourage pulmonary toilet. * 05/25: increased oxygen up to 10 liters. Add furosemide. Still did not have IS and flutter valve. Asked clinic charge nurse to provide. If no improvement, will have vest therpay. NSTEMI * type II from respiratory failure * no additional work up. GUME: ruled out Anxiety: * continue PRN alpazolam. Chronic medical conditions: * Chronic anemia: stable. * HFrEF, history of CAD, hyperlipidemia, history of CVA: Last echo on 03/04/2024 showed an EF of 45 to 50%, mild global LV hypokinesis, moderate eccentric MR. BNP 740 on this admit, appears stable from previous and no signs of volume overload on exam. Continue home aspirin and statin once able to resume p.o. intake. Echo on 05/16/2024 with an EF of 40% and stage I diastolic dysfunction * Anxiety/depression/insomnia: Stable. Continue home aripiprazole at night, duloxetine, escitalopram, gabapentin, mirtazapine and alprazolam as needed once able to resume p.o. intake. Reminend pt that she has PRN alprazolam ordered. * Seizure disorder: Is reportedly on phenytoin 3 times daily but notably has not had this filled in the last year per pharmacy. Will hold at this time. * GERD: Continue home PPI. DVT: Tamar OCHOA pt's brother and ce. Charges/Coding Visit Charges Inpatient E&M: 33996 Subs Hosp L2
[2024-05-25] MEDS: Aspirin E.C. 81 MG Tablet PO (09:33)
[2024-05-25] MEDS: Enoxaparin 40 MG/0.4 ML Syringe SC (09:33)
[2024-05-25] MEDS: Escitalopram Oxalate 20 MG Tablet PO (09:33)
[2024-05-25] MEDS: DULoxetine Hcl 60 MG Capsule PO (09:33)
[2024-05-25] MEDS: guaiFENesin/D-Methorphan TAB.SR.12H 2 TABLET PO ×2 (09:34→21:15)
[2024-05-25] MEDS: Pantoprazole Sodium 40 MG Tablet PO (09:34)
[2024-05-25] MEDS: Metoprolol(XL)Succ 25 MG Tablet PO (09:34)
[2024-05-25] MEDS: Cholecalciferol (VIT D3) 25 MCG TABLET (1,000 UNITS) PO (09:34)
[2024-05-25] MEDS: ALPRAZolam 0.5 MG Tablet PO ×3 (10:48→21:14)
[2024-05-25] MEDS: Furosemide 20 MG/2 ML VIAL IV (11:07)
[2024-05-25] MEDS: 0.9% Saline Lock 10 ML Syringe IV ×4 (11:08→21:25)
[2024-05-25] MEDS: Furosemide 40 MG/4 ML Vial IV (18:31)
[2024-05-25] MEDS: Gabapentin 300 MG Capsule PO (21:13)
[2024-05-25] MEDS: traZODone 50 MG Tablet PO (21:13)
[2024-05-25] MEDS: Atorvastatin Calcium 40 MG Tablet PO (21:14)
[2024-05-25] MEDS: Mirtazapine 15 MG Tablet 7.5 MG PO (21:16)
[2024-05-25] MEDS: ARIPiprazole 2 MG Tablet PO (21:18)
[2024-05-25] MEDS: Acetaminophen 325 MG Tablet 650 MG PO (21:20)
[2024-05-26] VITALS (7 sets, daily range): BP systolic 106–110; BP diastolic 52–72; PULSE 54–90; RESP 16–20; TEMP 36.3–36.7; O2SAT 86–100; BMI 27.0
[2024-05-26] MEDS: Ipratropium/Albuterol Sulfate 3 ML AMPUL.NEB INHALATION (07:00)
--- NOTE | 2024-05-26 08:52 | PN.HOSP_ITS ---
Reason for Visit Reason for Visit: Diagnoses Acute and chronic respiratory failure, unspecified whether with hypoxia or hypercapnia (05/15/24) Acute and chronic respiratory failure with hypoxia (05/15/24) Acute and chronic respiratory failure with hypercapnia (05/15/24) Subjective Subjective Feeling well. Coughed up a bunch of phlegm. Objective Data Objective Data Vital Signs: Vital Signs Temp Pulse Resp BP Pulse Ox O2 Del Method O2 Flow Rate 36.3 C L 54 L 16 106/72 100 Trach Collar 6 05/26/24 03:00 05/26/24 03:00 05/26/24 03:00 05/26/24 03:00 05/26/24 03:00 05/26/24 03:00 05/26/24 03:00 FiO2 3 05/19/24 10:00 Oxygen Flow Rate (L/min) 6 Oxygen Delivery Method Trach Collar Weight: 66.7 kg Body Mass Index (BMI) 27.0 Intake & Output: Intake and Output for Last 24 Hours 05/24/24 05/25/24 05/26/24 23:59 23:59 23:59 Intake Total 880 / 880 740 / 740 Output Total 1650 / 1650 1150 / 1150 Balance -770 / -770 -410 / -410 Lab / Micro Data 05/22/24 06:08 05/22/24 06:08 Micro: Microbiology 05/15/24 17:00 Blood Culture (Wb) - Right Forearm Blood Culture - Final No growth in 5 days. 05/17/24 13:30 Urine, Clean Catch Urine Culture - Final Presumptive C albicans 05/15/24 17:42 Sputum, Expectorated/Coughed Gram Stain - Final 05/15/24 17:42 Sputum, Expectorated/Coughed Respiratory Culture - Final Corynebacterium striatum 05/15/24 15:23 Mucosa - Nose SARS-CoV-2, Influenza & RSV (PCR) - Final Physical Exam Const alert and no apparent distress HEENT head/scalp atraumatic, moist oral mucous membranes, oropharynx normal, dentition normal and gingiva normal Neck no lymphadenopathy, supple, no JVD and no carotid bruits Resp normal respiratory effort and no retractions Resp Narrative: diminished. Cardio regular rate, regular rhythm, S1 normal heart sound and S2 normal heart sound GI normal to inspection, nondistended, normoactive bowel sounds, soft to palpation, non-tender and non-distended Assessment & Plan Assessment/Plan (1) Acute and chronic respiratory failure: PLAN: Plan Acute on chronic hypoxic respiratory failure with tracheostomy in place * suspect due to mucous plugging, pneumonia ruled out. * Hospital course: * 05/16/2024: Appreciate safety coordinator assistance. Continue with Zosyn and steroids * 05/17/2024: Appreciate pulmonology's assistance, continue with antibiotics and steroids, Awaiting sputum culture * 05/18/2024: Sputum culture with corynebacterium striatum, can discontinue Zosyn. Will have to wait through the weekend as her current DME company no longer will service her secondary to noncompliance, she does have a new company however they will not evaluate her or set her up with equipment until Wednesday * 05/19/2024, no change continue to monitor * 05/20/2024: Awaiting delivery of home equipment on Wednesday * 05/22/2024: pt will need an overnight ventilatory study before she can be discharged. * 05/23: had the overnight study, but oxygen drops considerably with activity. Add PEP. CXR showed increased left sided opacities. Received furosemide IV x 1, then placed back on her oral medications. * 05/24: concern for COPD exacerbation given diminished BS. Will add methylprednisolone. Encourage pulmonary toilet. * 05/25: increased oxygen up to 10 liters. Add furosemide. Still did not have IS and flutter valve. Asked full charge bookkeeper to provide. If no improvement, will have vest therpay. * 04/25: doing well. Will discharge home. Pt requires 2liters continuous. NSTEMI * type II from respiratory failure * no additional work up. GUME: ruled out Anxiety: * continue PRN alpazolam. Chronic medical conditions: * Chronic anemia: stable. * HFrEF, history of CAD, hyperlipidemia, history of CVA: Last echo on 03/04/2024 showed an EF of 45 to 50%, mild global LV hypokinesis, moderate eccentric MR. BNP 740 on this admit, appears stable from previous and no signs of volume overload on exam. Continue home aspirin and statin once able to resume p.o. intake. Echo on 05/16/2024 with an EF of 40% and stage I diastolic dysfunction * Anxiety/depression/insomnia: Stable. Continue home aripiprazole at night, duloxetine, escitalopram, gabapentin, mirtazapine and alprazolam as needed once able to resume p.o. intake. Yunier pt that she has PRN alprazolam ordered. * Seizure disorder: Is reportedly on phenytoin 3 times daily but notably has not had this filled in the last year per pharmacy. Will hold at this time. * GERD: Continue home PPI. DVT: Lovenox GABRIELA pt's brother and fiancee.
[2024-05-26] MEDS: Escitalopram Oxalate 20 MG Tablet PO (09:46)
[2024-05-26] MEDS: Aspirin E.C. 81 MG Tablet PO (09:46)
[2024-05-26] MEDS: DULoxetine Hcl 60 MG Capsule PO (09:46)
[2024-05-26] MEDS: Enoxaparin 40 MG/0.4 ML Syringe SC (09:46)
[2024-05-26] MEDS: Cholecalciferol (VIT D3) 25 MCG TABLET (1,000 UNITS) PO (09:47)
[2024-05-26] MEDS: guaiFENesin/D-Methorphan TAB.SR.12H 2 TABLET PO (09:47)
[2024-05-26] MEDS: Metoprolol(XL)Succ 25 MG Tablet PO (09:47)
[2024-05-26] MEDS: Pantoprazole Sodium 40 MG Tablet PO (09:47)
[2024-05-26] MEDS: Furosemide 40 MG/4 ML Vial IV (09:49)
[2024-05-26] MEDS: ALPRAZolam 0.5 MG Tablet PO ×2 (09:58→14:39)
--- NOTE | 2024-05-26 12:02 | PCM.DC.SUM ---
Providers Date of Admission: 05/15/24 Primary Care Physician: Dr. Maryam Pineda MD Consultations 05/15/24 18:28 Consult: Travel Money Advisor / Pulmonary Medicine Routine Consulting Provider: Anurag Flannery Reason for Consult: acute on chronic resp failure w/ trach in place EMERGENT Consult: No MD Notified: Yes Date Notified: 05/15/24 Time Notified: 18:28 Method of Notification: Verbal Reason For Visit: ACUTE ON CHRONIC RESPIRATORY FAILURE Diagnosis Discharge Diagnosis (1) Acute and chronic respiratory failure: Status: Inactive Code(s): J96.20 - Acute and chronic respiratory failure, unspecified whether with hypoxia or hypercapnia Plan Acute on chronic hypoxic respiratory failure with tracheostomy in place suspect due to mucous plugging, pneumonia ruled out. Hospital course: 05/16/2024: Appreciate master control engineer assistance. Continue with Zosyn and steroids 05/17/2024: Appreciate pulmonology's assistance, continue with antibiotics and steroids, Awaiting sputum culture 05/18/2024: Sputum culture with corynebacterium striatum, can discontinue Zosyn. Will have to wait through the weekend as her current DME company no longer will service her secondary to noncompliance, she does have a new company however they will not evaluate her or set her up with equipment until Wednesday05/19/2024, no change continue to monitor 05/20/2024: Awaiting delivery of home equipment on Wednesday05/22/2024: pt will need an overnight ventilatory study before she can be discharged. 05/23: had the overnight study, but oxygen drops considerably with activity. Add PEP. CXR showed increased left sided opacities. Received furosemide IV x 1, then placed back on her oral medications. 05/24: concern for COPD exacerbation given diminished BS. Will add methylprednisolone. Encourage pulmonary toilet. 05/25: increased oxygen up to 10 liters. Add furosemide. Still did not have IS and flutter valve. Asked furnace charger to provide. If no improvement, will have vest therpay. 04/25: doing well. Will discharge home. Pt requires 2liters with rest and 4 liters with activity. NSTEMI type II from respiratory failure no additional work up. GUME: ruled out Anxiety: continue PRN alpazolam. Chronic medical conditions: Chronic anemia: stable. HFrEF, history of CAD, hyperlipidemia, history of CVA: Last echo on 03/04/2024 showed an EF of 45 to 50%, mild global LV hypokinesis, moderate eccentric MR. BNP 740 on this admit, appears stable from previous and no signs of volume overload on exam. Continue home aspirin and statin once able to resume p.o. intake. Echo on 05/16/2024 with an EF of 40% and stage I diastolic dysfunction Anxiety/depression/insomnia: Stable. Continue home aripiprazole at night, duloxetine, escitalopram, gabapentin, mirtazapine and alprazolam as needed once able to resume p.o. intake. Reminend pt that she has PRN alprazolam ordered. Seizure disorder: Is reportedly on phenytoin 3 times daily but notably has not had this filled in the last year per pharmacy. Will hold at this time. GERD: Continue home PPI. DVT: Lovenox DW pt's brother and fiancee. Medications at Discharge Home Medications cholecalciferol (vitamin D3) 25 mcg (1,000 unit) tablet (Vitamin D3) 25 mcg PO DAILY supplement 11/03/20 pantoprazole 40 mg tablet,delayed release (Protonix) 40 mg PO DAILY GERD 11/03/20 aripiprazole 2 mg tablet (Abilify) 2 mg PO QHS mental health / sleep 08/25/22 atorvastatin 40 mg tablet 40 mg PO QHS cholesterol 08/25/22 metoprolol succinate 25 mg tablet,extended release 24 hr 25 mg PO DAILY blood pressure 08/25/22 phenytoin 100 mg/4 mL oral suspension 100 mg (4 mL) PO Q8 seizures 30 days #360 mL 10/12/22 furosemide 20 mg tablet 20 mg PO BIDCM diuretic 11/11/22 mirtazapine 7.5 mg tablet 7.5 mg PO QHS mental health #30 tabs 11/11/22 albuterol sulfate 2.5 mg/3 mL (0.083 %) solution for nebulization 2.5 mg (3 mL) inhalation Q2H PRN PRN Dyspnea, wheezing #180 mL 06/30/23 albuterol sulfate 90 mcg/actuation aerosol inhaler 2 inh inhalation Q4H breathing #8.5 grams 06/30/23 fluticasone fur. 100 mcg-umeclid 62.5 mcg-vilant 25 mcg inhalat.powder (Trelegy Ellipta) 1 inh inhalation DAILY breathing 30 days #60 ea 06/30/23 aspirin 81 mg tablet,delayed release (Adult Aspirin Regimen) 81 mg PO DAILY heart health 11/15/23 escitalopram oxalate 20 mg tablet 20 mg PO DAILY mental health 11/15/23 hydroxyzine pamoate 25 mg capsule 25 mg PO TID anxiety 11/15/23 ipratropium 0.5 mg-albuterol 3 mg (2.5 mg base)/3 mL nebulization soln 3 ml inhalation Q6H breathting 11/15/23 acetaminophen 325 mg tablet 650 mg (2 x 325 mg) PO Q4H PRN PRN Fever, pain 1-04/13 #0 tabs 11/18/23 dextromethorphan-guaifenesin 30 mg-600 mg tablet extended qoeicnz80 hr (Mucinex DM) 2 tab PO BID cough 7 days #28 tabs 11/18/23 sennosides 8.6 mg-docusate sodium 50 mg tablet (Stool Softener-Stimulant Laxative) 2 tab PO BID PRN PRN Constipation #0 tabs 11/18/23 L.acidophil,salivari-Bifido bifidum-Strep thermoph 175 mg capsule 1 cap PO BID probiotic #0 caps 03/08/24 alprazolam 0.5 mg tablet 0.5 mg PO TID PRN PRN Anxiety/Agitation #20 tabs 05/01/24 potassium, sodium phosphates 280 mg-160 mg-250 mg oral powder packet 1 packet PO BID #20 ea 05/01/24 duloxetine 60 mg capsule,delayed release 60 mg PO DAILY 05/15/24 gabapentin 300 mg capsule 300 mg PO QHS 05/15/24 zolpidem 10 mg tablet 10 mg PO QHS 05/15/24 guaifenesin 600 mg tablet, extended release 12 hr (Mucinex) 600 mg PO BID #10 tabs 05/26/24 prednisone 20 mg tablet 40 mg (2 x 20 mg) PO DAILY #10 tabs 05/26/24 Hospital Course Operations None Procedures None Summary of Care Provided Minutes Spent on Discharge: 32 Hospital Course: Patient presents with shortness of breath. This is 68-year-old female with history of chronic respiratory failure who has had a tracheostomy. Patient remained stable and patient remained over the weekend to try to facilitate getting her to have a noninvasive ventilator at night which she was able to complete but she was requiring more oxygen during the day. Try to optimize her with steroids and Lasix and then eventually patient was able to cough up some copious phlegm which does seem to have alleviated the breathing difficulties that she was having. Patient now is requiring 2 L at rest and 4 L with activity. Patient will be discharged home in stable condition. Weight / BMI Weight Weight: 66.7 kg Body Mass Index (BMI) 27.0 ABG / Lab / Microbiology Data 05/22/24 06:08 05/22/24 06:08 Microbiology: Microbiology 05/15/24 17:00 Blood Culture (Wb) - Right Forearm Blood Culture - Final No growth in 5 days. 05/17/24 13:30 Urine, Clean Catch Urine Culture - Final Presumptive C albicans 05/15/24 17:42 Sputum, Expectorated/Coughed Gram Stain - Final 05/15/24 17:42 Sputum, Expectorated/Coughed Respiratory Culture - Final Corynebacterium striatum 05/15/24 15:23 Mucosa - Nose SARS-CoV-2, Influenza & RSV (PCR) - Final D/C Instructions Discharge Diet: No restrictions DC O2, CPAP, BIPAP Needs RN Home O2 Qualification: Home O2 Qualification: Is the patient on home oxygen Yes 05/26/24 10:53 Home O2 Qualification: AT REST 1-Pulse Ox at rest 95 05/26/24 10:53 1- Oxygen flow rate at rest 2 05/26/24 10:53 Home O2 Qualification: WITH AMBULATION 1- Pulse Ox with ambulation 86 05/26/24 10:53 1- Oxygen Flow Rate with 2 05/26/24 10:53 ambulation 2- Pulse Ox with ambulation 88 05/26/24 10:53 2- Oxygen Flow Rate with 3 05/26/24 10:53 ambulation 3- Pulse Ox with ambulation 90 05/26/24 10:53 3- Oxygen Flow Rate with 4 05/26/24 10:53 ambulation 3- Stopped test - Unable to No 05/26/24 10:53 obtain pulse ox >89% w/ max oxyg PSN CPAP & BiPAP: BiPAP & CPAP Settings per PSN Fraction of Inspired Oxygen ( 3 05/19/24 10:00 FIO2) Additional Home O2 Discharge instructions: Yes Type of respiratory needs?: Oxygen Oxygen frequency: Continuous Continuous oxygen liters per minute: 2 liters at rest. 4 liters with activity. DC home with Oxygen: Yes Home O2 MD Review: I have reviewed the oxygen testing, and the patient qualifies for home oxygen equipment and portability. The patient is mobile in the home and the community. Meaningful Use Info Meaningful Use Meaningful Use Diagnoses (Choose all that apply): None applicable Ischemic Stroke Statin Dosing Therapy Reference: STATIN DOSE THERAPY REFERENCE: * Patients > 75 years receive moderate or high dose statin therapy. * Patients 75 years or YOUNGER should receive HIGH intensity statin dose unless contraindicated. You will be required to document reason for non-treatment if statin daily dose does not meet guidelines. HIGH DOSE STATIN THERAPY DAILY Atorvastatin > than or = to 40 mg Rosuvastatin > than or = to 20 mg Amlodipine + Atorvastatin > than or = to 2.5/40 mg Ezetimibe + Simvastatin 10/80 mg Simvastatin 80mg Discharge Plan Admission Admit Date/Time: 05/15/24 16:26 Primary Reason for Your Visit: respiratory failure. Attending Provider: Pete Su Primary Care Provider: Maryam Pineda Consulting Providers: Jonah Colon; Anurag Flannery; Nelson Kelsey Discharge Orders/Prescriptions Prescriptions: New prednisone 20 mg tablet 40 mg PO DAILY Qty: 10 0RF guaifenesin [Mucinex] 600 mg tablet extended release 12hr 600 mg PO BID Qty: 10 0RF Continued atorvastatin 40 mg tablet 40 mg PO QHS MDD 40 metoprolol succinate 25 mg tablet extended release 24 hr 25 mg PO DAILY MDD 25 aripiprazole [Abilify] 2 mg tablet 2 mg PO QHS MDD 2mg albuterol sulfate 90 mcg/actuation HFA aerosol inhaler 2 inh inhalation Q4H Qty: 8.5 11RF albuterol sulfate 2.5 mg /3 mL (0.083 %) solution for nebulization 2.5 mg inhalation Q2H PRN PRN (Reason: Dyspnea, wheezing) Qty: 180 6RF Trelegy Ellipta 100-62.5-25 mcg blister with device 1 inh INHALATION DAILY 30 Days Qty: 60 6RF pantoprazole [Protonix] 40 mg Tablet,Delayed Release (Dr/Ec) 40 mg PO DAILY cholecalciferol (vitamin D3) [Vitamin D3] 25 mcg (1,000 unit) Tablet 25 mcg PO DAILY phenytoin 100 mg/4 mL Suspension 100 mg PO Q8 30 Days Qty: 360 2RF furosemide 20 mg tablet 20 mg PO BIDCM MDD 40 mirtazapine 7.5 mg tablet 7.5 mg PO QHS Qty: 30 0RF alprazolam 0.5 mg Tablet 0.5 mg PO TID PRN PRN (Reason: Anxiety/Agitation) Qty: 20 0RF potassium, sodium phosphates 280-160-250 mg Powder In Packet 1 packet PO BID Qty: 20 0RF gabapentin 300 mg capsule 300 mg PO QHS zolpidem 10 mg tablet 10 mg PO QHS duloxetine 60 mg capsule,delayed release(DR/EC) 60 mg PO DAILY aspirin [Adult Aspirin Regimen] 81 mg tablet,delayed release (DR/EC) 81 mg PO DAILY ipratropium-albuterol 0.5 mg-3 mg(2.5 mg base)/3 mL solution for nebulization 3 ml inhalation Q6H Rx Instructions: EVERY 6 HOURS WHILE AWAKE hydroxyzine pamoate 25 mg capsule 25 mg PO TID escitalopram oxalate 20 mg tablet 20 mg PO DAILY acetaminophen 325 mg Tablet 650 mg PO Q4H PRN PRN (Reason: Fever, pain 1-04/13) Qty: 0 0RF sennosides-docusate sodium [Stool Softener-Stimulant Laxat] 8.6-50 mg Tablet 2 tab PO BID PRN PRN (Reason: Constipation) Qty: 0 0RF Mucinex DM 30-600 mg Tablet Extended Release 12 Hr 2 tab PO BID 7 Days Qty: 28 0RF L.acidoph,saliva-B.bif-S.therm 175 mg Capsule 1 cap PO BID Qty: 0 0RF Discontinued potassium chloride [Klor-Con M20] 20 mEq tablet,ER particles/crystals 20 meq PO BID Referrals / Follow Up: Pulmonary Medicine [facility] [Provider Group] - 06/27/24 11:15 am Maryam Pineda MD [Primary Care Provider] - Within 2 Weeks Disposition Disposition (needs filled in before D/C Order can be placed): Home Health Service Charges/Coding Visit Charges Inpatient E&M: 22385 Disch Hosp >30min
--- NOTE | 2024-05-26 12:04 | CASEMGMT ---
Addendum entered by Carla Azevedo 05/26/24 14:37: FINESSE LALA [facility] RN SPIKE updated Senait of planned discharge today. Senait confirmed that they will schedule nurse to see patient. FINESSE LALA faxed [facility] to [facility]. RN CM updated patient and family. Patient and family had no further questions or concerns. Addendum entered by Carla Azevedo 05/26/24 12:55: FINESSE LALA received call back from Ameena and updated that trach supplies were delivered and states that Oscar will be here at [phone] to pick patient. RN CM reminded Ameena for Oscar to bring oxygen tank from home for at discharge. RN SPIKE called and updated Myrtle with Monica of planned discharge time. Myrtle will meet patient at home for home setup. FINESSE LALA still awaiting calll back from [facility]. Original Note: FINESSE LALA updated that patient is maintain on home oxygen levels and patient will be discharging today. Myrtle from [facility] at facility and updated regarding discharge to home today. FINESSE LALA called and left message for SU Moore. RN SPIKE called daughter, Ameena and updated about discharge today and inquired if new trach supplies were delivered, Ameena states she will follow-up with Oscar and Antelmo and call this RN SPIKE back. FINESSE LALA called and left message with [facility] at [facility] regarding DC today. CM will continue to coordinate with [facility], [facility], and family for a safe discharge.
[2024-05-26] MEDS: 0.9% Saline Lock 10 ML Syringe IV (14:05)
== END 2024-05-26 15:45 | disposition home health service (06) | DRG 207 ==
LOC: ED 15:04 → ICU 16:37 → PCU 05-21 18:34
PROVIDERS: Family Medicine; Admitting Provider Hospitalist; Emergency Provider Surgery; PCP Internal Medicine
DX: J96.21 Acute and chronic respiratory failure with hypoxia (principal); I21.A1 Myocardial infarction type 2; J44.1 Chronic obstructive pulmonary disease with (acute) exacerbation; I11.0 Hypertensive heart disease with heart failure; G40.909 Epilepsy, unspecified, not intractable, without status epilepticus; F32.A Depression, unspecified; D64.9 Anemia, unspecified; E03.9 Hypothyroidism, unspecified; Z93.0 Tracheostomy status; E87.5 Hyperkalemia; E78.5 Hyperlipidemia, unspecified; F41.9 Anxiety disorder, unspecified; K21.9 Gastro-esophageal reflux disease without esophagitis; J96.22 Acute and chronic respiratory failure with hypercapnia; Z79.51 Long term (current) use of inhaled steroids; Z86.73 Personal history of transient ischemic attack (TIA), and cerebral infarction without residual deficits; Z79.82 Long term (current) use of aspirin; Z87.891 Personal history of nicotine dependence; R53.81 Other malaise; Z79.891 Long term (current) use of opiate analgesic; G47.00 Insomnia, unspecified; Z87.01 Personal history of pneumonia (recurrent)
CPT/HCPCS: 31720; 36415; 36600; 71045; 71046; 80048; 81001; 82803; 83605; 83735; 83880; 84100; 84484; 85025; 85027; 87040; 87070; 87077; 87086; 87088; 87205; 87631; 93005; 93306; 94002; 94003; 94640; 94762; 97110; 97116; 97162; 97166; 97530; 97535; 97802; 97803; 99252; 99285; J7040; Q9957; A4216; C8929; G0463; J1940

== ENCOUNTER 2024-05-29 20:53 | Inpatient (IN) | payer MEDICARE, SELFPAY ==
[2024-05-29] VITALS (12 sets, daily range): BP systolic 93–117; BP diastolic 46–100; PULSE 99–123; RESP 18–97; TEMP 36.4–37; O2SAT 20–100; BMI 28.6
--- NOTE | 2024-05-29 21:05 | EKG12_ITS ---
Test Reason : DYSRHYTHMIA Blood Pressure : */* mmHG Vent. Rate : 110 BPM Atrial Rate : 110 BPM P-R Int : 114 ms QRS Dur : 80 ms QT Int : 330 ms P-R-T Axes : 77 39 102 degrees QTcB Int : 446 ms Sinus tachycardia Right atrial enlargement Possible Inferior infarct , age undetermined Abnormal ECG Confirmed by Leobardo Yan ([id number]), news videotape editor NICOLE ARANGO ([id number]) on 05/30/2024 10:42:52 AM Referred By: Confirmed By: Leobardo Yan
--- NOTE | 2024-05-29 21:08 | EDS_ITS ---
HPI History of Present Illness Chief Complaint: Shortness of Breath Informant: patient, family (x2) and EMS Narrative Narrative: 68-year-old female tracheostomy due to severe COPD was just discharged from the hospital for COPD exacerbation 2 days ago, she was admitted for 12 days, she was doing okay yesterday and gradually became dyspneic today. She denies any sudden onset symptoms. She denies any chest pain or abdominal pain/GI symptoms. Nothing else is changed. Per EMS, patient had respiratory distress, they turned her oxygen up of her still not able to get her above the high 80s prior to arrival here in the ER. The significant other states that he attempted to suction her trach, she did not gag and he did not get anything out prior to calling EMS. [facility] Medical History History of stroke Chronic anemia Medical non-compliance Hypothyroidism Former smoker BiPAP (biphasic positive airway pressure) dependence On home oxygen therapy Asthma Seizures Stroke/cerebrovascular accident Noncompliance Diastolic CHF History of alcohol abuse Aspiration pneumonia due to gastric secretions Carcinoma in situ of breast Benign neoplasm of colon Takotsubo cardiomyopathy (06/17/21) Ischemic cerebrovascular accident (CVA) (02/06/17) Non-rheumatic mitral regurgitation Anxiety and depression Non-ischemic cardiomyopathy Essential (primary) hypertension Secondary pulmonary arterial hypertension Chronic anemia GERD (gastroesophageal reflux disease) TIO (obstructive sleep apnea) History of non-ST elevation myocardial infarction (NSTEMI) (02/03/17) History of DVT of lower extremity (02/11/17) Insomnia Hyperlipidemia Daytime hypersomnia Hemorrhagic cerebrovascular accident (CVA) (02/09/17) COPD (chronic obstructive pulmonary disease) Home Medications ?Medication ?Instructions ?Recorded ?Last Taken ?Type cholecalciferol (vitamin D3) 25 25 mcg PO DAILY supplement 11/03/20 05/15/24 History mcg (1,000 unit) tablet (Vitamin D3) pantoprazole 40 mg tablet,delayed 40 mg PO DAILY GERD 11/03/20 05/15/24 History release (Protonix) aripiprazole 2 mg tablet (Abilify) 2 mg PO QHS mental health / sleep 08/25/22 05/14/24 History atorvastatin 40 mg tablet 40 mg PO QHS cholesterol 08/25/22 05/14/24 History metoprolol succinate 25 mg 25 mg PO DAILY blood pressure 08/25/22 05/15/24 History tablet,extended release 24 hr phenytoin 100 mg/4 mL oral 100 mg (4 mL) PO Q8 seizures 30 10/12/22 Unknown Rx suspension days #360 mL furosemide 20 mg tablet 20 mg PO BIDCM diuretic 11/11/22 05/15/24 History mirtazapine 7.5 mg tablet 7.5 mg PO QHS mental health #30 11/11/22 05/14/24 Rx tabs albuterol sulfate 2.5 mg/3 mL 2.5 mg (3 mL) inhalation Q2H PRN 06/30/23 11/15/23 Rx (0.083 %) solution for nebulization PRN Dyspnea, wheezing #180 mL albuterol sulfate 90 mcg/actuation 2 inh inhalation Q4H breathing 06/30/23 05/15/24 Rx aerosol inhaler #8.5 grams fluticasone fur. 100 mcg-umeclid 1 inh inhalation DAILY breathing 06/30/23 05/15/24 Rx 62.5 mcg-vilant 25 mcg 30 days #60 ea inhalat.powder (Trelegy Ellipta) aspirin 81 mg tablet,delayed 81 mg PO DAILY heart health 11/15/23 05/15/24 History release (Adult Aspirin Regimen) escitalopram oxalate 20 mg tablet 20 mg PO DAILY mental health 11/15/23 05/15/24 History hydroxyzine pamoate 25 mg capsule 25 mg PO TID anxiety 11/15/23 05/15/24 History ipratropium 0.5 mg-albuterol 3 mg 3 ml inhalation Q6H breathting 11/15/23 11/15/23 History (2.5 mg base)/3 mL nebulization soln acetaminophen 325 mg tablet 650 mg (2 x 325 mg) PO Q4H PRN PRN 11/18/23 Unknown Rx Fever, pain 1-04/13 #0 tabs dextromethorphan-guaifenesin 30 2 tab PO BID cough 7 days #28 tabs 11/18/23 Unknown Rx mg-600 mg tablet extended hr (Mucinex DM) sennosides 8.6 mg-docusate sodium 2 tab PO BID PRN PRN Constipation 11/18/23 Unknown Rx 50 mg tablet (Stool #0 tabs Softener-Stimulant Laxative) L.acidophil,salivari-Bifido 1 cap PO BID probiotic #0 caps 03/08/24 05/15/24 Rx bifidum-Strep thermoph 175 mg capsule alprazolam 0.5 mg tablet 0.5 mg PO TID PRN PRN 05/01/24 05/15/24 Rx Anxiety/Agitation #20 tabs potassium, sodium phosphates 280 1 packet PO BID supplement #20 ea 05/01/24 05/15/24 Rx mg-160 mg-250 mg oral powder packet duloxetine 60 mg capsule,delayed 60 mg PO DAILY mental health 05/15/24 05/15/24 History release gabapentin 300 mg capsule 300 mg PO QHS nerve pain 05/15/24 05/14/24 History zolpidem 10 mg tablet 10 mg PO QHS sleep 05/15/24 05/14/24 History guaifenesin 600 mg tablet, 600 mg PO BID #10 tabs 05/26/24 Unknown Rx extended release 12 hr (Mucinex) prednisone 20 mg tablet 40 mg (2 x 20 mg) PO DAILY #10 tabs 05/26/24 Unknown Rx Allergy/AdvReac Type Severity Reaction Status Date / Time tetanus and diphtheria Allergy Hives Verified 05/29/24 20:54 toxoids (tetanus & diphtheria toxoids) Family History Sister Cancer lung Father Cancer lung Mother Cancer lung Surgical History S/P emergency tracheotomy for assistance in breathing History of tracheostomy S/P percutaneous endoscopic gastrostomy (PEG) tube placement History of left heart catheterization (06/17/21) History of bilateral cataract extraction Hx of appendectomy H/O: section History of lumpectomy History of cholecystectomy Social History household members: spouse Smoking Status: Former smoker how long ago did patient quit smokin, 1pk/day second hand exposure: Yes alcohol intake: former substance use type: does not use what type of physical activity do you participate in: walking frequency: daily ROS ROS ED Review of Systems ROS Unobtainable: other Details: Limited due to tracheostomy and tachypnea Constitutional Constitutional ED: Denies chills or fever(s) Eyes Eyes: Denies change in vision Cardiovascular Cardiovascular: Denies chest pain or palpitations Respiratory/Chest Respiratory/Chest: Reports cough and dyspnea Gastrointestinal Gastrointestinal: Denies abdominal pain, diarrhea, nausea or vomiting Musculoskeletal Musculoskeletal: Denies neck pain Neurologic Neurologic: Denies headache(s) EXAM Physical Exam Const Vital Signs: 05/29/24 20:53 05/29/24 20:59 05/29/24 21:02 Temperature 97.5 F L 97.6 F L Temperature Source Temporal Temporal Pulse Rate 113 H 123 H Respiratory Rate 30 H 30 H Respiratory Effort Short of Breath Respiratory Pattern Tachypnea Blood Pressure 117/100 H Blood Pressure Mean 105 Pulse Ox 90 89 Oxygen Delivery Method Trach Collar Mechanical Ventilator Mechanical Ventilator Oxygen Flow Rate (L/min) 15 05/29/24 21:06 05/29/24 21:09 05/29/24 21:43 Temperature Temperature Source Pulse Rate 119 H 102 H Respiratory Rate 23 H 20 H Respiratory Effort Respiratory Pattern Normal Blood Pressure 111/68 Blood Pressure Mean 82 Pulse Ox 100 100 Oxygen Delivery Method Mechanical Ventilator Mechanical Ventilator Oxygen Flow Rate (L/min) 05/29/24 21:59 05/29/24 22:00 Temperature 98.6 F 98.6 F Temperature Source Oral Oral Pulse Rate 108 H 108 H Respiratory Rate 19 H 19 H Respiratory Effort Respiratory Pattern Blood Pressure 102/51 L 93/59 L Blood Pressure Mean 68 70 Pulse Ox 100 100 Oxygen Delivery Method Mechanical Ventilator Mechanical Ventilator Oxygen Flow Rate (L/min) Positive well nourished and well developed General Appearance ED: well developed, NAD and pallor HEENT Reports moist mucous membranes normocephalic and atraumatic Eyes PERRL and EOMs intact bilaterally Neck full ROM and supple Neck Narrative: Tracheostomy site benign, no audible leak or discharge or bleeding; tracheostomy in place hooked to tubing and ventilator Resp Resp Narrative: Mild-moderate respiratory distress. Diffusely diminished and equal with prolonged expiratory phase. Cardio regular rate and regular rhythm Rate: tachycardic GI non-tender and non-distended Auscultation: normoactive bowel sounds Palpation: soft Extremity normal to inspection General Extremety ED: Negative for edema, pulses abnormal or tenderness General Extremity: Negative for edema or pulses abnormal Neuro CN's II-XII intact bilaterally Neuro Narrative: Moves all 4 extremities. Keenly alert. Able to nod in response to questions appropriately. Sensorium / Orientation: awake and alert Skin no rashes or lesions noted and no wounds General Skin Exam: pallor MDM MDM MDM Narrative Medical decision making narrative: Nursing and respiratory in the room as I initially evaluated the patient. Respiratory states the patient initially in respiratory distress and the cuff of the tracheostomy was completely deflated and her ventilator was not appropriately ventilating the patient. He inflated the cuff, and it remained inflated, and simultaneously switched her trach over to our ventilator, and suctioned out some thick yellow mucus. As a result, her oxygen saturations are 100% and she is breathing better. She was given a duo nebulizer treatment. This did help but she still feels tight, however declining more treatments at this time. Her pallor is resolved and she appears to have more color to her face. 1 view chest x-ray my interpretation shows no changes compared with her prior several days ago, showing no acute pneumothorax or radiopaque consolidation or effusions. She does have a leukocytosis however she has been on steroids recently and that may be why. This is nonspecific. Her creatinine a little higher than usual this can be monitored. She is definitely doing better now, but still feels tight. ABG shows mild acute respiratory acidosis. Given this and the severity of her COPD and the respiratory distress that she presented with, she should be admitted for observation and continued treatment. Lab Data Attestation: I reviewed the patient's lab results. Labs: Laboratory Results - last 24 hr 05/29/24 21:20 WBC 15.9 H RBC 3.81 L Hgb 9.8 L Hct 34.3 L MCV 90.0 MCH 25.7 L MCHC 28.6 L RDW Std Deviation 50.6 H RDW Coeff of [place] 15.5 H Plt Count 308 MPV 10.6 Immature Gran % (Auto) 0.400 Neut % (Auto) 80.8 H Lymph % (Auto) 12.4 L [place] % (Auto) 6.0 Eos % (Auto) 0.3 Baso % (Auto) 0.1 Absolute Neuts (auto) 12.9 H Absolute Lymphs (auto) 1.98 Nucleated RBC % 0 Sodium 137 Potassium 4.9 Chloride 101 Carbon Dioxide 24.0 Anion Gap 12 BUN 18 Creatinine 1.27 H Estim Creat Clear Calc 37.07 Est GFR (MDRD) Af Amer 54 L Est GFR (MDRD) Non-Af 44 L BUN/Creatinine Ratio 14.2 Glucose 310 H Calcium 8.9 Troponin I High Sens 31 B-Natriuretic Peptide 506.9 H ABG Data ABG results: ABG 05/29/24 22:04 Specimen Type ART Sample Site R Radial pH 7.33 L Bicarbonate Actual 27.2 H Total CO2 29 Base Excess 1 O2 Saturation 95 O2 % 30.0 ABG pCO2 51.4 H ABG pO2 79 Royal Test Positive Respiration Rate 18 O2 Delivery Device Adult Vent Vent Mode AC Tidal Volume 400.0 POC PEEP 5 Radiography Diagnostic Testing: Clinical Impression(s) from Imaging Studies Chest X-Ray 05/29/24 21:35 IMPRESSION: Hyperinflation of the lungs without focal airspace disease likely secondary to COPD. Electronically Signed: Justin Hernadez DO at 22:09 EST , Rhythm Strip Rhythm Strip: Sinus Tach Rate: 110 Ectopy: None EKG Initial EKG: Attestation: I personally reviewed and interpreted this EKG as follows: Interpretation: No Acute Injury Pattern and Sinus Tachycardia Management Discussion w/another healthcare provider: Hospitalist Critical Care Time Critical Care Time: Yes Critical care time (excluding procedures): 30-74 minutes (33 min), Including time spent:, Discussing w/Patient &/or Family/Furnace Puncher, Discussing w/Consultants, Arranging Admission or Transfer and Performing Direct Patient Care at Bedside Discharge Plan Dx/Rx/DC Orders Clinical Impression: Acute on chronic respiratory failure with hypoxia and hypercapnia, Acute exacerbation of chronic obstructive pulmonary disease (COPD) Disposition Disposition: Acute Care [facility]
[2024-05-29 21:28] LABS: Absolute Lymphocyte Count 1.98 X10^3/uL (0.83-4.51); Absolute Neutrophil Count 12.9 X10^3/uL (2.0-7.7); Basophil# 0.02 X10^3/uL; Basophil% 0.1 % (0-1); Eosinophil# 0.05 X10^3/uL; Eosinophils% 0.3 % (0-5); Hematocrit 34.3 % (37-47); Hemoglobin 9.8 g/dL (12.0-15.0); Lymphocyte # 1.98 X10^3/ul (0.83-4.51); Lymphocyte % 12.4 % (19-41); Mean Corp Hgb Conc 28.6 g/dL (32-36); Mean Corpuscular Hgb 25.7 pg (27.0-32.0); Mean Platelet Vol. 10.6 fl (6.2-12.0); Monocyte# 0.95 X10^3/uL; NRBC Flagged by Analyzer 0 % (0-5); Neutrophil # 12.87 X10^3/uL (2.7-7.7); Neutrophil % 80.8 % (47-70); Platelet Count 308 K/mm3 (150-450); RBC Distribution Width CV 15.5 % (11.6-14.6); RBC Distribution Width SD 50.6 fl (35.1-43.9); Red Blood Count 3.81 M/mm3 (4.2-5.4); White Blood Count 15.9 K/mm3 (4.4-11.0)
--- NOTE | 2024-05-29 21:35 | RAD_ITS ---
EXAM: XR CHEST, 1 VIEW CLINICAL INDICATION: dyspnea TECHNIQUE: Frontal view of the chest. COMPARISON: 05/23/2024 FINDINGS: LUNGS AND PLEURAL SPACES: Hyperinflation of the lungs without focal airspace disease likely secondary to COPD. No pneumothorax. No effusion. HEART: No significant abnormality. Cardiac silhouette not enlarged. MEDIASTINUM: Central airways and mediastinal contour are unremarkable. BONES/JOINTS: No significant abnormality. No acute fracture. SOFT TISSUES: No significant abnormality. TUBES, LINES AND DEVICES: Tracheostomy cannula present. RAD/Chest 1 View (Portable) IMPRESSION: Hyperinflation of the lungs without focal airspace disease likely secondary to COPD. Electronically Signed: Justin Hernadez DO at 22:09 EST ,
[2024-05-29] MEDS: Ipratropium/Albuterol Sulfate 3 ML AMPUL.NEB INHALATION (21:43)
[2024-05-29 21:47] LABS: Anion Gap 12 (5-15); BUN 18 mg/dL (7-18); BUN/Creat Ratio 14.2 RATIO (10-20); Calcium,Total 8.9 mg/dL (8.5-10.1); Chloride 101 mmol/L (98-107); Creatinine, Serum 1.27 mg/dL (0.55-1.02); EST Glomerular Filtration Rate 44 mL/min (>60); Est Glom Filt Rate - Afr Amer 54 mL/min (>60); Estimated Creatinine Clearance 37.07 ml/min; Glucose 310 mg/dL (74-106); Potassium 4.9 mmol/L (3.5-5.1); Sodium Level 137 mmol/L (136-145); Troponin-I HS 31 pg/mL (3.0-54.0)
[2024-05-29 21:59] LABS: BNP,B-Type NATRIURETIC PEPTIDE 506.9 pg/mL (0-100)
[2024-05-29 22:09] LABS: Allen Test Positive; Base Excess 1 mmol/L (-2 to +2); Bicarbonate 27.2 mmol/L (22-26); Blood Gas Specimen Type ART; Mode AC; O2 Delivery Device Adult Vent; PEEP 5; PO2 79 mmHG (75-100); RR 18; SITE R Radial; SO2 95 % (95-99); Total Carbon Dioxide 29 mmol/L; pCO2 51.4 mmHg (35-45); pH 7.33 (7.35-7.45)
--- NOTE | 2024-05-29 22:18 | PCM.HP.STD ---
HPI - General General Date of Admission: 05/29/24 Date of Service: 05/29/24 Chief Complaint: Acute on chronic respiratory failure HPI Narrative MARCO MAY, is a 68 F who presented to [facility] ED on 05/29/2024 for with acute on chronic respiratory failure. Patient was recently hospitalized here from 05/15-05/26. 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 Had similar presentation to ED last time and it was suspected her worsening respiratory status was primarily due to mucous plugging. However she did have diminished breath sounds later in the hospitalization and was started on steroids for concern for COPD exacerbation. She was discharged on prednisone 40 mg daily for 5 days. Patient noted she was doing okay yesterday but gradually became more dyspneic today leading her to call EMS. Patient has ventilator at home and was using this when EMS arrived. EMS noted that she had respiratory distress enroute to ED despite turning up the oxygen on her ventilator to high settings. On arrival here it was noted that the tracheostomy cuff was completely deflated and she was not being appropriately ventilated. Once the cuff was inflated and she was switched to the ventilator in the ED, she was suctioned and sick, mucus was extracted. Patient had good improvement in breathing after this. Vitals on arrival were otherwise notable for sinus tachycardia to the 110s, was otherwise normotensive and afebrile. ABG showed pH 7.33, CO2 51, pO2 79 on ventilator at 30% FiO2. Labs notable for WBC count 15.9, creatinine 1.27 (baseline 0.6-0.8), glucose 310. Chest x-ray showed hyperinflation but was otherwise benign. Given her recent prolonged hospitalization and severe COPD with recurrent respiratory failure, hospitalist was contacted for admission. I saw the patient at bedside in the ED. RT was also at bedside and patient was actively being suctioned. She had some mucus output with suctioning but not an excessive amount per RT. Her blood pressure was noted to be slightly lower in the 80s over 50s. Patient was also somewhat dry appearing on exam. She could not answer questions with verbal responses as she was on the ventilator through the trach. However she did agree that she had been peeing more frequently over the past few days and felt dry because of this. She denied any fevers or chills. No other acute concerns at this time. Will be admitted for further management. FORMERLY [facility], [facility] Medical History History of stroke Chronic anemia Medical non-compliance Hypothyroidism Former smoker BiPAP (biphasic positive airway pressure) dependence On home oxygen therapy Asthma Seizures Stroke/cerebrovascular accident Noncompliance Diastolic CHF History of alcohol abuse Aspiration pneumonia due to gastric secretions Carcinoma in situ of breast Benign neoplasm of colon Takotsubo cardiomyopathy (06/17/21) Ischemic cerebrovascular accident (CVA) (02/06/17) Non-rheumatic mitral regurgitation Anxiety and depression Non-ischemic cardiomyopathy Essential (primary) hypertension Secondary pulmonary arterial hypertension Chronic anemia GERD (gastroesophageal reflux disease) TIO (obstructive sleep apnea) History of non-ST elevation myocardial infarction (NSTEMI) (02/03/17) History of DVT of lower extremity (02/11/17) Insomnia Hyperlipidemia Daytime hypersomnia Hemorrhagic cerebrovascular accident (CVA) (02/09/17) COPD (chronic obstructive pulmonary disease) Home Medications ?Medication ?Instructions ?Recorded ?Last Taken ?Type cholecalciferol (vitamin D3) 25 25 mcg PO DAILY supplement 11/03/20 05/15/24 History mcg (1,000 unit) tablet (Vitamin D3) pantoprazole 40 mg tablet,delayed 40 mg PO DAILY GERD 11/03/20 05/15/24 History release (Protonix) aripiprazole 2 mg tablet (Abilify) 2 mg PO QHS mental health / sleep 08/25/22 05/14/24 History atorvastatin 40 mg tablet 40 mg PO QHS cholesterol 08/25/22 05/14/24 History metoprolol succinate 25 mg 25 mg PO DAILY blood pressure 08/25/22 05/15/24 History tablet,extended release 24 hr phenytoin 100 mg/4 mL oral 100 mg (4 mL) PO Q8 seizures 30 10/12/22 Unknown Rx suspension days #360 mL furosemide 20 mg tablet 20 mg PO BIDCM diuretic 11/11/22 05/15/24 History mirtazapine 7.5 mg tablet 7.5 mg PO QHS mental health #30 11/11/22 05/14/24 Rx tabs albuterol sulfate 2.5 mg/3 mL 2.5 mg (3 mL) inhalation Q2H PRN 06/30/23 11/15/23 Rx (0.083 %) solution for nebulization PRN Dyspnea, wheezing #180 mL albuterol sulfate 90 mcg/actuation 2 inh inhalation Q4H breathing 06/30/23 05/15/24 Rx aerosol inhaler #8.5 grams fluticasone fur. 100 mcg-umeclid 1 inh inhalation DAILY breathing 06/30/23 05/15/24 Rx 62.5 mcg-vilant 25 mcg 30 days #60 ea inhalat.powder (Trelegy Ellipta) aspirin 81 mg tablet,delayed 81 mg PO DAILY heart health 11/15/23 05/15/24 History release (Adult Aspirin Regimen) escitalopram oxalate 20 mg tablet 20 mg PO DAILY mental health 11/15/23 05/15/24 History hydroxyzine pamoate 25 mg capsule 25 mg PO TID anxiety 11/15/23 05/15/24 History ipratropium 0.5 mg-albuterol 3 mg 3 ml inhalation Q6H breathting 11/15/23 11/15/23 History (2.5 mg base)/3 mL nebulization soln acetaminophen 325 mg tablet 650 mg (2 x 325 mg) PO Q4H PRN PRN 11/18/23 Unknown Rx Fever, pain -04/13 #0 tabs dextromethorphan-guaifenesin 30 2 tab PO BID cough 7 days #28 tabs 11/18/23 Unknown Rx mg-600 mg tablet extended fqahvbc10 hr (Mucinex DM) sennosides 8.6 mg-docusate sodium 2 tab PO BID PRN PRN Constipation 11/18/23 Unknown Rx 50 mg tablet (Stool #0 tabs Softener-Stimulant Laxative) L.acidophil,salivari-Bifido 1 cap PO BID probiotic #0 caps 03/08/24 05/15/24 Rx bifidum-Strep thermoph 175 mg capsule alprazolam 0.5 mg tablet 0.5 mg PO TID PRN PRN 05/01/24 05/15/24 Rx Anxiety/Agitation #20 tabs potassium, sodium phosphates 280 1 packet PO BID supplement #20 ea 05/01/24 05/15/24 Rx mg-160 mg-250 mg oral powder packet duloxetine 60 mg capsule,delayed 60 mg PO DAILY mental health 05/15/24 05/15/24 History release gabapentin 300 mg capsule 300 mg PO QHS nerve pain 11/11/24 11/10/24 History zolpidem 10 mg tablet 10 mg PO QHS sleep 05/15/24 05/14/24 History guaifenesin 600 mg tablet, 600 mg PO BID #10 tabs 05/26/24 Unknown Rx extended release 12 hr (Mucinex) prednisone 20 mg tablet 40 mg (2 x 20 mg) PO DAILY #10 tabs 05/26/24 Unknown Rx Allergy/AdvReac Type Severity Reaction Status Date / Time tetanus and diphtheria Allergy Hives Verified 05/29/24 20:54 toxoids (tetanus & diphtheria toxoids) Family History Sister Cancer lung Father Cancer lung Mother Cancer lung Surgical History S/P emergency tracheotomy for assistance in breathing History of tracheostomy S/P percutaneous endoscopic gastrostomy (PEG) tube placement History of left heart catheterization (06/17/21) History of bilateral cataract extraction Hx of appendectomy H/O: section History of lumpectomy History of cholecystectomy Social History household members: spouse Smoking Status: Former smoker how long ago did patient quit smokin, 1pk/day second hand exposure: Yes alcohol intake: former substance use type: does not use what type of physical activity do you participate in: walking frequency: daily ROS Constitutional Constitutional: Denies chills or fever(s) Cardiovascular Cardiovascular: Denies chest pain Respiratory/Chest Respiratory/Chest: Reports cough Gastrointestinal Gastrointestinal: Denies abdominal pain Endocrine Endocrinology: Reports polyuria Vital Signs Vital Signs Vital Signs: 05/29/24 20:53 05/29/24 20:59 05/29/24 21:02 Temperature 97.5 F L 97.6 F L Temperature Source Temporal Temporal Pulse Rate 113 H 123 H Respiratory Rate 30 H 30 H Respiratory Effort Short of Breath Respiratory Pattern Tachypnea Blood Pressure 117/100 H Blood Pressure Mean 105 Pulse Ox 90 89 Oxygen Delivery Method Trach Collar Mechanical Ventilator Mechanical Ventilator Oxygen Flow Rate (L/min) 15 05/29/24 21:06 05/29/24 21:09 05/29/24 21:43 Temperature Temperature Source Pulse Rate 119 H 102 H Respiratory Rate 23 H 20 H Respiratory Effort Respiratory Pattern Normal Blood Pressure 111/68 Blood Pressure Mean 82 Pulse Ox 100 100 Oxygen Delivery Method Mechanical Ventilator Mechanical Ventilator Oxygen Flow Rate (L/min) 05/29/24 21:59 05/29/24 22:00 Temperature 98.6 F 98.6 F Temperature Source Oral Oral Pulse Rate 108 H 108 H Respiratory Rate 19 H 19 H Respiratory Effort Respiratory Pattern Blood Pressure 102/51 L 93/59 L Blood Pressure Mean 68 70 Pulse Ox 100 100 Oxygen Delivery Method Mechanical Ventilator Mechanical Ventilator Oxygen Flow Rate (L/min) Weight Weight: 68.7 kg Body Mass Index (BMI) 28.6 Physical Exam Const alert, no apparent distress and average body habitus Constitutional Narrative: Elderly female, appears older than stated age and chronically ill-appearing, otherwise sitting up comfortably in bed, breathing comfortably on ventilator via tracheostomy, in no acute distress. General Appearance: cooperative and comfortable HEENT normocephalic, head/scalp atraumatic, hearing grossly normal bilaterally and nasal mucous membranes and turbinates normal HEENT Narrative: Dry mucous membranes. Eyes PERRL, EOMs intact bilaterally and conjunctivae normal Neck full ROM Neck Narrative: Tracheostomy in place. Chest inspection of chest normal Resp normal respiratory effort and no use of accessory muscles Resp Narrative: Breathing comfortably on ventilator via tracheostomy at low FiO2. Diminished breath sounds bilaterally but no wheezing or crackles noted. Cardio no murmurs and peripheral pulses 2+ throughout Cardio Narrative: Tachycardic, regular rhythm. GI normal to inspection, nondistended, normoactive bowel sounds, soft to palpation, non-tender and non-distended Back/Spine normal ROM Extremity normal to inspection, full ROM and no pedal edema Skin no rashes or lesions noted Psych mental status grossly normal Results Lab / Micro Data 05/29/24 21:20 05/29/24 21:20 Labs: Laboratory Results - last 24 hr 05/29/24 21:20: WBC 15.9 H, RBC 3.81 L, Hgb 9.8 L, Hct 34.3 L, MCV 90.0, MCH 25.7 L, MCHC 28.6 L, RDW Std Deviation 50.6 H, RDW Coeff of Deonte 15.5 H, Plt Count 308, MPV 10.6, Immature Gran % (Auto) 0.400, Neut % (Auto) 80.8 H, Lymph % (Auto) 12.4 L, [place] % (Auto) 6.0, Eos % (Auto) 0.3, Baso % (Auto) 0.1, Absolute Neuts (auto) 12.9 H, Absolute Lymphs (auto) 1.98, Nucleated RBC % 0, Sodium 137, Potassium 4.9, Chloride 101, Carbon Dioxide 24.0, Anion Gap 12, BUN 18, Creatinine 1.27 H, Estim Creat Clear Calc 37.07, Est GFR (MDRD) Af Amer 54 L, Est GFR (MDRD) Non-Af 44 L, BUN/Creatinine Ratio 14.2, Glucose 310 H, Calcium 8.9, Troponin I High Sens 31, B-Natriuretic Peptide 506.9 H ABG Data ABG results: ABG 05/29/24 22:04 Specimen Type ART Sample Site R Radial pH 7.33 L Bicarbonate Actual 27.2 H Total CO2 29 Base Excess 1 O2 Saturation 95 O2 % 30.0 ABG pCO2 51.4 H ABG pO2 79 Royal Test Positive Respiration Rate 18 O2 Delivery Device Adult Vent Vent Mode AC Tidal Volume 400.0 POC PEEP 5 Rhythm Strip Rhythm Strip: Sinus Tach Rate: 110 Ectopy: None Imaging Radiology Impression Chest X-Ray 05/29/24 21:35 IMPRESSION: Hyperinflation of the lungs without focal airspace disease likely secondary to COPD. Electronically Signed: Justin Hernadez DO at 22:09 EST , Assessment & Plan Assessment/Plan (1) Acute on chronic hypoxic respiratory failure: PLAN: Plan Patient is a 68-year-old female who presented [facility] ED on 05/29/2024 with recurrent respiratory failure. 1. Recurrent acute on chronic hypoxic respiratory failure, history of end-stage COPD s/p tracheostomy ? Admit under inpatient status to ICU. Pulmonology consulted. Most likely cause of recurrent failure seems to be mucous plugging. Patient was dehydrated from polyuria from hyperglycemia as noted below and this may have been contributing. Low concern for recurrent pneumonia or COPD exacerbation. Will hold on antibiotics or steroids for now. Continue home inhalers. Pep therapy ordered. Will continue on ventilator at low settings overnight and defer to pulmonology for further recommendations. 2. Mild GUME ? Creatinine 1.27 on admit, baseline 0.6-0.8. Suspect mild prerenal GUME due to dehydration. Given 1 L of LR on admit. Follow-up a.m. BMP and monitor urine output. 3. Hyperglycemia ? Blood glucose 310 on admit. No reported history of diabetes and not on any diabetes medications. Presumed secondary to recent steroid course. A1c ordered. POC glucose checks and sliding scale insulin with meals ordered for now. 4. Chronic debility ? Lives at home with significant other and has other family available to help her. Went home after previous hospitalization and presume plan will be the same after this hospitalization. No need for therapy consults at this time. Chronic medical conditions: ? Chronic anemia: Hemoglobin 9.8 on admit, at baseline. ? HFrEF, history of CAD, hyperlipidemia, history of CVA: Last echo on 03/04/2024 showed an EF of 45 to 50%, mild global LV hypokinesis, moderate eccentric MR. BNP 506 on this admit, improved from previous inpatient dry on admission as noted above. Continue home Toprol, aspirin and statin. Holding home Lasix for now, restart when able. ? Anxiety, depression, insomnia: Stable. Continue home aripiprazole at night, duloxetine, escitalopram, gabapentin, mirtazapine and alprazolam as needed. ? Reported seizure disorder: Was reportedly on phenytoin 3 times daily but this has not had this filled in the last year per pharmacy. Will hold at this time. ? GERD: Continue home PPI. DVT prophylaxis: Lovenox CODE STATUS: Full code, verified Expected disposition: TBD Total clinical time spent by myself addressing the patient's medical issues, reviewing all the data, and collaborating with patient's care team: 75 minutes. Charges/Coding Visit Charges Inpatient E&M: 70713 Init Hosp L3
--- NOTE | 2024-05-29 22:19 | CPS ---
[2115] Pt. arrival to ER on home ventilator in respiratory distress. Pt.'s cuff wasn't inflated on arrival. Pt. switched over to hospitals ventilator and deep suctioned.
[2024-05-29] MEDS: LORazepam 2 MG/ML Syringe 0.5 MG IV (22:23)
[2024-05-29] MEDS: LACTATED RINGERS 500 ML IV (23:42)
[2024-05-30] VITALS (32 sets, daily range): BP systolic 84–116; BP diastolic 42–65; PULSE 76–113; RESP 15–24; TEMP 36.1–37.3; O2SAT 92–100; BMI 28.6
[2024-05-30] MEDS: LACTATED RINGERS 500 ML 999 ML IV (01:51)
[2024-05-30 04:34] LABS: Hematocrit 28.5 % (37-47); Hemoglobin 8.4 g/dL (12.0-15.0); Mean Corp Hgb Conc 29.5 g/dL (32-36); Mean Corpuscular Hgb 25.6 pg (27.0-32.0); Mean Corpuscular Volume 86.9 fL (81-99); Platelet Count 230 K/mm3 (150-450); RBC Distribution Width CV 15.5 % (11.6-14.6); RBC Distribution Width SD 49.3 fl (35.1-43.9); Red Blood Count 3.28 M/mm3 (4.2-5.4); White Blood Count 16.1 K/mm3 (4.4-11.0)
[2024-05-30 04:47] LABS: Anion Gap 5 (5-15); BUN 21 mg/dL (7-18); BUN/Creat Ratio 21.6 RATIO (10-20); Calcium,Total 8.9 mg/dL (8.5-10.1); Chloride 104 mmol/L (98-107); Creatinine, Serum 0.97 mg/dL (0.55-1.02); EST Glomerular Filtration Rate 60 mL/min (>60); Est Glom Filt Rate - Afr Amer 73 mL/min (>60); Estimated Creatinine Clearance 48.53 ml/min; Glucose 114 mg/dL (74-106); Sodium Level 141 mmol/L (136-145)
[2024-05-30] MEDS: Budesonide Respules 0.5 MG/2 ML AMPUL.NEB. INHALATION ×2 (06:51→19:05)
[2024-05-30] MEDS: Ipratropium/Albuterol Sulfate 3 ML AMPUL.NEB INHALATION ×3 (06:51→19:05)
--- NOTE | 2024-05-30 09:50 | PCM.PN.HOSP ---
Subjective Subjective Doing well, no issues overnight. Continue on trach vent Objective Data Objective Data Vital Signs: Vital Signs Temp Pulse Resp BP Pulse Ox O2 Del Method O2 Flow Rate 99.2 F H 102 H 16 114/44 L 93 Mechanical Ventilator 15 05/30/24 08:00 05/30/24 09:00 05/30/24 09:00 05/30/24 09:00 05/30/24 09:00 05/30/24 09:00 05/29/24 20:53 FiO2 30 05/30/24 09:00 Oxygen Flow Rate (L/min) 15 Oxygen Delivery Method Mechanical Ventilator Weight: 151 lb 7.321 oz Body Mass Index (BMI) 28.6 Intake & Output: Intake and Output for Last 24 Hours 05/29/24 05/30/24 05/31/24 03:59 03:59 03:59 Intake Total 500 / 500 500 / 500 Output Total 150 / 150 Balance 500 / 500 350 / 350 Lab / Micro Data 05/30/24 04:25 05/30/24 04:25 Labs: Laboratory Results - last 24 hr 05/29/24 21:20: WBC 15.9 H, RBC 3.81 L, Hgb 9.8 L, Hct 34.3 L, MCV 90.0, MCH 25.7 L, MCHC 28.6 L, RDW Std Deviation 50.6 H, RDW Coeff of Deonte 15.5 H, Plt Count 308, MPV 10.6, Immature Gran % (Auto) 0.400, Neut % (Auto) 80.8 H, Lymph % (Auto) 12.4 L, [place] % (Auto) 6.0, Eos % (Auto) 0.3, Baso % (Auto) 0.1, Absolute Neuts (auto) 12.9 H, Absolute Lymphs (auto) 1.98, Nucleated RBC % 0, Sodium 137, Potassium 4.9, Chloride 101, Carbon Dioxide 24.0, Anion Gap 12, BUN 18, Creatinine 1.27 H, Estim Creat Clear Calc 37.07, Est GFR (MDRD) Af Amer 54 L, Est GFR (MDRD) Non-Af 44 L, BUN/Creatinine Ratio 14.2, Glucose 310 H, Calcium 8.9, Troponin I High Sens 31, B-Natriuretic Peptide 506.9 H 05/30/24 04:25: WBC 16.1 H, RBC 3.28 L, Hgb 8.4 L, Hct 28.5 L, MCV 86.9, MCH 25.6 L, MCHC 29.5 L, RDW Std Deviation 49.3 H, RDW Coeff of Deonte 15.5 H, Plt Count 230, MPV 10.0, Sodium 141, Potassium 4.0, Chloride 104, Carbon Dioxide 32.0, Anion Gap 5, BUN 21 H, Creatinine 0.97, Estim Creat Clear Calc 48.53, Est GFR (MDRD) Af Amer 73, Est GFR (MDRD) Non-Af 60, BUN/Creatinine Ratio 21.6 H, Glucose 114 H, Calcium 8.9 Micro: Microbiology 05/29/24 21:30 Sputum, Tracheal Aspirate Respiratory Culture - Preliminary Culture exhibits no growth. ABG Data ABG results: ABG 05/29/24 22:04 Specimen Type ART Sample Site R Radial pH 7.33 L Bicarbonate Actual 27.2 H Total CO2 29 Base Excess 1 O2 Saturation 95 O2 % 30.0 ABG pCO2 51.4 H ABG pO2 79 Royal Test Positive Respiration Rate 18 O2 Delivery Device Adult Vent Vent Mode AC Tidal Volume 400.0 POC PEEP 5 Radiography Diagnostic Testing: Radiology Impression Chest X-Ray 05/29/24 21:35 IMPRESSION: Hyperinflation of the lungs without focal airspace disease likely secondary to COPD. Electronically Signed: Justin Hernadez DO at 22:09 EST , Rhythm Strip Rhythm Strip: Sinus Tach Rate: 110 Ectopy: None Physical Exam Narrative General: Alert, Oriented x3, Cooperative, No apparent distress HEENT: Atraumatic, PERRLA, EOMI, Normocephalic Oral: Moist Mucosa Neck: Supple, No JVD Lungs: Diminished, Normal air movement, No rhonchi, No wheeze, No rales Cardiovascular: Regular rate, Regular Rhythm, Normal S1, Normal S2, No murmurs Abdomen: Soft, Non Tender, Non-Distended, No Hepato-splenomegaly Extremities: No edema, Capillary Refill Less than 3 Seconds Skin: No rashes, No breakdown Musculoskeletal: No Tenderness to Palpation of Joints or Extremities Neurological: No focal neurological deficits, Motor Exam 5/5 strength throughout, Sensory exam intact to light touch and pain Psych/Mental Status: Normal Affect, Appropriate Assessment & Plan Assessment/Plan (1) Acute on chronic hypoxic respiratory failure: PLAN: Plan 1. Recurrent acute on chronic hypoxic respiratory failure, history of end-stage COPD s/p tracheostomy ? Admit under inpatient status to ICU. Pulmonology consulted. Most likely cause of recurrent failure seems to be mucous plugging. Patient was dehydrated from polyuria from hyperglycemia as noted below and this may have been contributing. Low concern for recurrent pneumonia or COPD exacerbation. Will hold on antibiotics or steroids for now. Continue home inhalers. Pep therapy ordered. Will continue on ventilator at low settings overnight and defer to pulmonology for further recommendations. ? Continue with budesonide and hold systemic steroids ? Her cough has been deflated and I discussed with her the possibility of needing to go to SNF given the multiple admissions that she has had in the hospital recently 2. Chronic systolic CHF/CAD/essential HTN/HLD/history of CVA ? Last echo was on 03/04/2024 with an EF of 45 to 50% and mild global LV hypokinesis ? Resume her home blood pressure medications ? Monitor make adjustments as necessary ? Continue to hold Lasix for now though her renal function has improved back to her baseline 3. Hyperglycemia ? Blood glucose 310 on admit. ? A1c in November was 4.8 ? Blood sugars elevated due to steroids 4. Chronic debility ? Lives at home with significant other and has other family available to help her. Went home after previous hospitalization and presume plan will be the same after this hospitalization. No need for therapy consults at this time. ? PT/OT discussed the possibility of SNF placement on discharge 5. Anxiety/depression ? Stable ? Continue with her home medications 6. GERD ? Stable ? Continue with PPI DVT: Lovenox Charges/Coding Visit Charges Inpatient E&M: 53226 Subs Hosp L2
--- NOTE | 2024-05-30 10:05 | CON.PCM.CC_ITS ---
Assessment & Plan Assessment/Plan (1) Acute on chronic respiratory failure with hypoxia and hypercapnia: PLAN: Plan RECOMMENDATIONS: 1. Continue supplemental oxygen at 3 L/min during the day with ventilatory support nightly via trach. 2. Continue scheduled bronchodilators. 3. Continue appropriate DVT prophylaxis. 4. Mobilize patient as tolerated. 5. Follow-up in the pulmonary medicine clinic in June as scheduled. 6. The patient is medically stable for transfer out of the intensive care unit. 7. Strongly recommend disposition to penitentiary facility, as I feel that the patient and her immediate family are unable to care for her medical needs at home. IMPRESSIONS: 1. Acute on chronic combined respiratory failure The patient has known end-stage COPD and chronic hypoxemic respiratory failure, along with baseline CO2 retention. During her last hospitalization, the patient was provided with a prescription for a new ventilator that would interface with her tracheostomy along with associated respiratory supplies, including suction catheters. The patient's acute decompensation was likely secondary to mucous plugging and failure to provide adequate suctioning and ventilatory support to the patient while at home. She does not have anything to suggest an occult infectious process on chest imaging. Therefore, I agree with continuing scheduled bronchodilators. The patient will be weaned from ventilatory support and placed on supplemental oxygen with the use of her Passy-Clau valve. Recommend ongoing vent support with naps and nightly. The patient is otherwise stable from a respiratory perspective. I strongly believe that she would benefit from penitentiary facility disposition, as she is clearly unable to care for herself with the assistance of her family in her home environment. 2. History of end-stage COPD/chronic hypoxemic respiratory failure/obstructive sleep apnea/frequent COPD exacerbations The patient has a known history of end-stage COPD with known outpatient medical noncompliance. She will be maintained on scheduled bronchodilators for now. Management as noted above. 3. History of hemorrhagic CVA/former tobacco dependency/history of cardiomyopathy/anxiety/depression Complicates care, management, recovery and prognosis. Continue home medications as indicated. This note was generated with [employer] software. It may contain incorrect words, spelling, and punctuation that were not noted in checking the note before signing. HPI Consult Data Date of Consult: 05/30/24 HPI Narrative Reason for Consultation: Acute on chronic respiratory failure HPI Narrative: The patient is a 68-year-old female, well-known to me, who presented to the emergency department on May 29 with acutely decompensated shortness of breath. The patient was just discharged from the hospital on May 15 after being admitted with acute on chronic respiratory failure once again. Her infectious workup at that time was unremarkable. Ultimately, a prescription for new DME supplies including a new home ventilator that would interface with her tracheostomy along with associated respiratory supplies including suctioning catheters were ordered for the patient. It sounds as if the patient likely mucous plug at home, which is what led to her acute decompensation. The family had some confusion regarding the suction catheter and its functionality. In addition, they were confused about the operations of her ventilator. Lastly, they forgot to inflate her tracheostomy instructor pilot balloon prior to attempting to ventilate her. The patient has a known medical history of frequent hospitalizations secondary to medical noncompliance. The patient was last seen in our pulmonary medicine office at the end of March 2024. The patient has known chronic hypoxemic respiratory failure with a baseline oxygen requirement of 3 L/min and is status post prior tracheostomy. She has end-stage COPD on a triple therapy inhaler regimen on an outpatient basis. On presentation to the emergency department, the patient was afebrile but was mildly tachycardic and tachypneic. On arrival, the patient's cuff was inflated and she was placed on ventilatory support. She was suctioned of thick yellow mucus and an aerosol treatment was administered. Following these interventions, the patient improved from a clinical perspective. BNP was noted to be elevated at 506. Chest x-ray demonstrated no acute cardiopulmonary process. Sputum culture was collected. The patient was placed on scheduled bronchodilators. This morning, the patient is stable from a respiratory perspective on her baseline vent support. Therefore, she was removed from the ventilator and allowed to utilize her Passy-Lcau valve and supplemental oxygen per baseline. [facility] Medical History History of stroke Chronic anemia Medical non-compliance Hypothyroidism Former smoker BiPAP (biphasic positive airway pressure) dependence On home oxygen therapy Asthma Seizures Stroke/cerebrovascular accident Noncompliance Diastolic CHF History of alcohol abuse Aspiration pneumonia due to gastric secretions Carcinoma in situ of breast Benign neoplasm of colon Takotsubo cardiomyopathy (06/17/21) Ischemic cerebrovascular accident (CVA) (02/06/17) Non-rheumatic mitral regurgitation Anxiety and depression Non-ischemic cardiomyopathy Essential (primary) hypertension Secondary pulmonary arterial hypertension Chronic anemia GERD (gastroesophageal reflux disease) TIO (obstructive sleep apnea) History of non-ST elevation myocardial infarction (NSTEMI) (02/03/17) History of DVT of lower extremity (02/11/17) Insomnia Hyperlipidemia Daytime hypersomnia Hemorrhagic cerebrovascular accident (CVA) (02/09/17) COPD (chronic obstructive pulmonary disease) Home Medications ?Medication ?Instructions ?Recorded ?Last Taken ?Type cholecalciferol (vitamin D3) 25 25 mcg PO DAILY supplement 11/03/20 05/15/24 History mcg (1,000 unit) tablet (Vitamin D3) pantoprazole 40 mg tablet,delayed 40 mg PO DAILY GERD 11/03/20 05/15/24 History release (Protonix) aripiprazole 2 mg tablet (Abilify) 2 mg PO QHS mental health / sleep 08/25/22 05/14/24 History atorvastatin 40 mg tablet 40 mg PO QHS cholesterol 08/25/22 05/14/24 History metoprolol succinate 25 mg 25 mg PO DAILY blood pressure 08/25/22 05/15/24 History tablet,extended release 24 hr phenytoin 100 mg/4 mL oral 100 mg (4 mL) PO Q8 seizures 30 10/12/22 Unknown Rx suspension days #360 mL furosemide 20 mg tablet 20 mg PO BIDCM diuretic 11/11/22 05/15/24 History mirtazapine 7.5 mg tablet 7.5 mg PO QHS mental health #30 11/11/22 05/14/24 Rx tabs albuterol sulfate 2.5 mg/3 mL 2.5 mg (3 mL) inhalation Q2H PRN 06/30/23 11/15/23 Rx (0.083 %) solution for nebulization PRN Dyspnea, wheezing #180 mL albuterol sulfate 90 mcg/actuation 2 inh inhalation Q4H breathing 06/30/23 05/15/24 Rx aerosol inhaler #8.5 grams fluticasone fur. 100 mcg-umeclid 1 inh inhalation DAILY breathing 06/30/23 05/15/24 Rx 62.5 mcg-vilant 25 mcg 30 days #60 ea inhalat.powder (Trelegy Ellipta) aspirin 81 mg tablet,delayed 81 mg PO DAILY heart health 11/15/23 05/15/24 History release (Adult Aspirin Regimen) escitalopram oxalate 20 mg tablet 20 mg PO DAILY mental health 11/15/23 05/15/24 History hydroxyzine pamoate 25 mg capsule 25 mg PO TID anxiety 11/15/23 05/15/24 History ipratropium 0.5 mg-albuterol 3 mg 3 ml inhalation Q6H breathting 11/15/23 11/15/23 History (2.5 mg base)/3 mL nebulization soln acetaminophen 325 mg tablet 650 mg (2 x 325 mg) PO Q4H PRN PRN 11/18/23 Unknown Rx Fever, pain 1-04/13 #0 tabs dextromethorphan-guaifenesin 30 2 tab PO BID cough 7 days #28 tabs 11/18/23 Unknown Rx mg-600 mg tablet extended [id number] hr (Mucinex DM) sennosides 8.6 mg-docusate sodium 2 tab PO BID PRN PRN Constipation 11/18/23 Unknown Rx 50 mg tablet (Stool #0 tabs Softener-Stimulant Laxative) L.acidophil,salivari-Bifido 1 cap PO BID probiotic #0 caps 03/08/24 05/15/24 Rx bifidum-Strep thermoph 175 mg capsule alprazolam 0.5 mg tablet 0.5 mg PO TID PRN PRN 05/01/24 05/15/24 Rx Anxiety/Agitation #20 tabs potassium, sodium phosphates 280 1 packet PO BID supplement #20 ea 05/01/24 05/15/24 Rx mg-160 mg-250 mg oral powder packet duloxetine 60 mg capsule,delayed 60 mg PO DAILY mental health 05/15/24 05/15/24 History release gabapentin 300 mg capsule 300 mg PO QHS nerve pain 05/15/24 05/14/24 History zolpidem 10 mg tablet 10 mg PO QHS sleep 05/15/24 05/14/24 History guaifenesin 600 mg tablet, 600 mg PO BID #10 tabs 05/26/24 Unknown Rx extended release 12 hr (Mucinex) prednisone 20 mg tablet 40 mg (2 x 20 mg) PO DAILY #10 tabs 05/26/24 Unknown Rx Allergy/AdvReac Type Severity Reaction Status Date / Time tetanus and diphtheria Allergy Hives Verified 05/29/24 20:54 toxoids (tetanus & diphtheria toxoids) Family History Sister Cancer lung Father Cancer lung Mother Cancer lung Surgical History S/P emergency tracheotomy for assistance in breathing History of tracheostomy S/P percutaneous endoscopic gastrostomy (PEG) tube placement History of left heart catheterization (06/17/21) History of bilateral cataract extraction Hx of appendectomy H/O: section History of lumpectomy History of cholecystectomy Social History household members: spouse Smoking Status: Former smoker how long ago did patient quit smokin, 1pk/day second hand exposure: Yes alcohol intake: former substance use type: does not use what type of physical activity do you participate in: walking frequency: daily ROS ROS Narrative 10 systems were reviewed with pertinent positives as noted in the HPI above. Physical Exam Const alert and no apparent distress Constitutional Narrative: Chronically ill in appearance. General Appearance: cooperative HEENT normocephalic and head/scalp atraumatic HEENT Narrative: Stable tracheostomy site. Eyes PERRL, EOMs intact bilaterally and conjunctivae normal Neck supple General: trachea midline Chest inspection of chest normal Resp normal respiratory effort Auscultation: diminished lung sounds Cardio regular rate and regular rhythm GI normal to inspection, nondistended, normoactive bowel sounds Extremity no clubbing, cyanosis or edema Skin no rashes or lesions noted Neuro CN's II-XII intact bilaterally and no focal motor deficits Psych cooperative and affect normal Lab / Micro Data 05/30/24 04:25 05/30/24 04:25 Labs: Laboratory Results - last 24 hr 05/29/24 21:20: WBC 15.9 H, RBC 3.81 L, Hgb 9.8 L, Hct 34.3 L, MCV 90.0, MCH 25.7 L, MCHC 28.6 L, RDW Std Deviation 50.6 H, RDW Coeff of Deonte 15.5 H, Plt Count 308, MPV 10.6, Immature Gran % (Auto) 0.400, Neut % (Auto) 80.8 H, Lymph % (Auto) 12.4 L, Charles % (Auto) 6.0, Eos % (Auto) 0.3, Baso % (Auto) 0.1, Absolute Neuts (auto) 12.9 H, Absolute Lymphs (auto) 1.98, Nucleated RBC % 0, Sodium 137, Potassium 4.9, Chloride 101, Carbon Dioxide 24.0, Anion Gap 12, BUN 18, C reatinine 1.27 H, Estim Creat Clear Calc 37.07, Est GFR (MDRD) Af Amer 54 L, Est GFR (MDRD) Non-Af 44 L, BUN/Creatinine Ratio 14.2, Glucose 310 H, Calcium 8.9, Troponin I High Sens 31, B-Natriuretic Peptide 506.9 H 05/30/24 04:25: WBC 16.1 H, RBC 3.28 L, Hgb 8.4 L, Hct 28.5 L, MCV 86.9, MCH 25.6 L, MCHC 29.5 L, RDW Std Deviation 49.3 H, RDW Coeff of Deonte 15.5 H, Plt Count 230, MPV 10.0, Sodium 141, Potassium 4.0, Chloride 104, Carbon Dioxide 32.0, Anion Gap 5, BUN 21 H, Creatinine 0.97, Estim Creat Clear Calc 48.53, Est GFR (MDRD) Af Amer 73, Est GFR (MDRD) Non-Af 60, BUN/Creatinine Ratio 21.6 H, G lucose 114 H, Calcium 8.9 Micro: Microbiology 05/29/24 21:30 Sputum, Tracheal Aspirate Respiratory Culture - Preliminary Culture exhibits no growth. ABG Data ABG results: ABG 05/29/24 22:04 Specimen Type ART Sample Site R Radial pH 7.33 L Bicarbonate Actual 27.2 H Total CO2 29 Base Excess 1 O2 Saturation 95 O2 % 30.0 ABG pCO2 51.4 H ABG pO2 79 Royal Test Positive Respiration Rate 18 O2 Delivery Device Adult Vent Vent Mode AC Tidal Volume 400.0 POC PEEP 5 Rhythm Strip Rhythm Strip: Sinus Tach Rate: 110 Ectopy: None Imaging Radiology Impression Chest X-Ray 05/29/24 21:35 IMPRESSION: Hyperinflation of the lungs without focal airspace disease likely secondary to COPD. Electronically Signed: Justin Hernadez DO at 22:09 EST , Charges/Coding Visit Charges Inpatient E&M: 82613 Init Hosp L3
[2024-05-30] MEDS: Escitalopram Oxalate 20 MG Tablet PO (10:14)
[2024-05-30] MEDS: DULoxetine Hcl 60 MG Capsule PO (10:14)
[2024-05-30] MEDS: Enoxaparin 40 MG/0.4 ML Syringe SC (10:14)
[2024-05-30] MEDS: Aspirin E.C. 81 MG Tablet PO (10:14)
[2024-05-30] MEDS: Metoprolol(XL)Succ 25 MG Tablet PO (10:15)
[2024-05-30] MEDS: Lactobacillis Acidophilus 1 CAP PO ×2 (10:15→20:07)
[2024-05-30] MEDS: guaiFENesin 600 MG Tablet PO ×2 (10:15→20:05)
[2024-05-30] MEDS: Pantoprazole Sodium 40 MG Tablet PO (10:15)
[2024-05-30] MEDS: ALPRAZolam 0.5 MG Tablet PO ×2 (10:48→17:50)
--- NOTE | 2024-05-30 11:32 | CASEMGMT ---
Readmission Note: Index: 05/15/24-05/26/24. Dx: Acute on Chronic RF Readmission: 05/29/24. Dx: Acute on Chronic RF On index admission, the patient was set up with an invasive ventilator through [employer] for her tracheostomy, tracheostomy supplies through [employer], home healthcare through [employer], and DME supplied through [employer] (concentrator and portable tanks). Patient was discharged home with the assistance of her fianc? (Oscar), brother (Antelmo), and daughter (Ameena). The patient presents to [facility] ER with decreased respiratory status. Per chart review, it was noted that the patient's tracheostomy cuff was deflated upon arrival. TC to [employer], no answer. VM left. assistant produce manager to the patient room at this time. The patient's fianc? and brother at the bedside. The patient is currently on the mechanical ventilator and is unable to communicate through speech. However, the patient is A&Ox4 and willing to review this case. When questioned, the patient?s fianc? and brother stated that they were unaware that the cuff needed to be inflated. Per ICU rounds, the pt and family were educated by respiratory therapy many times. The patient's brother states that he was helping care for the trach at home and that the patient was wearing the equipment 25/01. This assistant produce manager questioned if the pt cuff was deflated due to the patient wanting to speak since this is difficult to do with the cuff being inflated. The patient brother and fianc? both stated ?Probably.? The pt shook her head and looked away. The patient's fianc? also states that this morning he noticed that there was a slit in the oxygen lining supplied through the concentrator. The patient's fianc? states that they had backup equipment from [employer] and was able to switch this equipment out appropriately. The patient's fianc? states that they were able to get the patient?s new medications and take them as ordered. The patient and the patient's fianc? are aware of the pulmonary follow-up visit scheduled for June 27. The patient's fianc? states the patient has not yet seen the patient?s PCP. However, the patient's brother states that he was working on getting a follow-up appointment scheduled. The patient's brother states that the patient is currently out of Ambien, and needs this for sleep. The patient's brother states that he tried following up with the PCP to get an order for this to help with the patient's sleep. The patient's fianc? and brother state that Myrtle (RT from [facility]) came to the home two times and was able to help out with the tracheostomy care and vent. However, the patient's fianc? states that the home healthcare company has not been to the home yet and has not created a start of care date yet. Telephone call to [employer]. This director case talked to [employer] who has been working on this case. [employer] states that they are still trying to find the staff to be able to come out to the home. At this time, there is no start of care date that can be given to this assistant produce manager. Senait states that she will keep case management updated. Telephone call to [employer]. This assistant produce manager communicated with [facility] liaison. Wayne confirms that the patient's current order states that she is to wear 5L continuously through her invasive ventilator. [employer] is currently supplying the patient concentrator as well as portability. Per chart review, the patient is also receiving tracheostomy supplies through [employer]. Telephone call to [employer]. [employer] states that they are not servicing this patient any longer as they are not in their system. [employer] states that the home healthcare company is responsible for supplying these tracheostomy supplies moving forward. Telephone call to [employer]. [facility] states that once the nurse goes to the patient?s home, that they will be able to order and manage tracheostomy supplies. The patient's brother states that they currently have enough supplies for the next two weeks or so. The pt invasive ventilator is currently at bedside. Moving forward, the disposition plan is to be determined. Per Dr. Flannery, the patient requires a fpc facility stay to help manage her respiratory issues and medical complexities. Social work is aware and will follow up with the patient as well as the patient?s family regarding this. If the patient were to be discharged home, the tentative plan would be to go home with [employer], Trach supplies through [employer], oxygen equipment (concentrator and portable tanks) through [employer], and continual support from the invasive ventilator supplied through [employer]. SPIKE and SW to continue to follow. Fer AYOUB RN, CM
[2024-05-30 11:40] LABS: Bedside Glucose 94 mg/dL (74-106)
--- NOTE | 2024-05-30 12:43 | CASEMGMT ---
Social Work SW received a referral from physician for SNF placement. SW met with pt's brother Antelmo Everett and boyfriend Nasim Frank. Nasim lives with the patient and provides 24 hour care. Antelmo lives a half a block away and provides all of the Trach care. Extensive conversation with Antelmo and Nasim regarding pt's care needs, repeated readmissions, and complexities of caring for trach and invasive ventilator at home. Antelmo is tearful throughout conversation as he has a great desire to provide pt will all care needs at home. Antelmo initially resistant to SNF placement. After much discussion and support, Antelmo is more agreeable to discussing SNF placement. Nasim is able to state that pt's care needs may be exceeding what he can provide. SW did explain to Antelmo and Nasim that ultimately the discharge plan will be up to pt. SW met with pt to discuss ongoing care needs with ventilator and discharge plan. Much support and active listening provided to pt. Pt vacillating between desire to be at home with her boyfriend, brother and daughter providing needed care and understanding of need for SNF. After discussion and options discussed, pt is agreeable to short term stay in SNF. Pt requesting that dgt Ameena be contacted to get her opinion as well. Phone call to Pt's dgt Ameena. Ameena is agreeable to short term SNF placement at this time to allow herself and Nasim and Antelmo to work out a system in which pt will have around the clock care at home. Ameena is understanding that Nasim cannot care for pt and pt needs someone with her overnight on a daily basis. A list of SNF providers including quality and resource use data and consistent with the patient?s preferred geographic region, medical needs, and insurance network were provided from the [employer]. Ameena [facility] of choice [facility]. SW returned to pt room to inform of this and pt is sleeping soundly. Referral made to [facility]. SW will await determination of acceptance. Pt will need precert prior to admission. RUI Noble
--- NOTE | 2024-05-30 15:41 | CASEMGMT ---
Social Work In discussions with pt and dgt Ameena, pt requested to stay in a local facility if possible. SW reached out to [facility] who states they do not accept tracheostomy patients and [facility] who states they do not accept any type of vent care. Pt refusing referral to [facility]. VM left for [facility] and [facility] to check on their ability to accommodate the respiratory needs of this patient. Awaiting return call. [facility] states they do not have beds available this week. Will do on onsite visit with patient tomorrow and may have a bed available next week. SNF's that accept pt's requiring vent care are limited in this geographical area. [facility] does accept vent care, however they are out of network with pt's insurance. In speaking with [employer], they will start a new contract with pt's insurance on 06/04/24. Pt's dgt Ameena is hesitant to placement here due to prior experience. IBETH met with pt, pt's dgt Ameena and pt's boyfriend Nasim. All the above discharge options reviewed. Initially pt again requesting to return home. But when Ameena reinforced desire for pt to go to SNF for short term stay, pt again was agreeable to SNF. Pt continues to be agreeable to SNF. IBETH will await determination from pending SNF referrals and will follow up as appropriate. RUI Noble
[2024-05-30 16:46] LABS: Bedside Glucose 113 mg/dL (74-106)
[2024-05-30] MEDS: ARIPiprazole 2 MG Tablet PO (20:07)
[2024-05-30] MEDS: Atorvastatin Calcium 40 MG Tablet PO (20:07)
[2024-05-30] MEDS: Gabapentin 300 MG Capsule PO (20:08)
[2024-05-30] MEDS: Zolpidem Tartrate 5 MG Tablet PO ×2 (20:08→20:16)
[2024-05-30] MEDS: Mirtazapine 15 MG Tablet 7.5 MG PO (20:08)
[2024-05-30 21:51] LABS: Bedside Glucose 107 mg/dL (74-106)
[2024-05-31] VITALS (19 sets, daily range): BP systolic 95–117; BP diastolic 45–81; PULSE 70–104; RESP 15–24; TEMP 36–36.3; O2SAT 93–100
[2024-05-31] MEDS: Zolpidem Tartrate 5 MG Tablet PO ×3 (00:09→22:01)
[2024-05-31] MEDS: Ipratropium/Albuterol Sulfate 3 ML AMPUL.NEB INHALATION ×4 (00:30→20:15)
[2024-05-31] MEDS: Acetaminophen 325 MG Tablet 650 MG PO (03:44)
[2024-05-31] MEDS: ALPRAZolam 0.5 MG Tablet PO ×3 (03:45→16:23)
[2024-05-31] MEDS: Albuterol 2.5 MG/3 ML VIAL.NEB. INHALATION (04:05)
[2024-05-31 06:10] LABS: Absolute Neutrophil Count 6.4 X10^3/uL (2.0-7.7); Basophil# 0.02 X10^3/uL; Basophil% 0.2 % (0-1); Eosinophil# 0.32 X10^3/uL; Eosinophils% 3.3 % (0-5); Hematocrit 25.1 % (37-47); Hemoglobin 7.5 g/dL (12.0-15.0); Lymphocyte % 19.8 % (19-41); Mean Corp Hgb Conc 29.9 g/dL (32-36); Mean Corpuscular Hgb 26.4 pg (27.0-32.0); Mean Corpuscular Volume 88.4 fL (81-99); Mean Platelet Vol. 11.1 fl (6.2-12.0); Monocyte# 0.95 X10^3/uL; Monocyte% 9.9 % (0-10); NRBC Flagged by Analyzer 0 % (0-5); Neutrophil # 6.38 X10^3/uL (2.7-7.7); Neutrophil % 66.4 % (47-70); Platelet Count 160 K/mm3 (150-450); RBC Distribution Width CV 15.7 % (11.6-14.6); RBC Distribution Width SD 50.1 fl (35.1-43.9); Red Blood Count 2.84 M/mm3 (4.2-5.4); White Blood Count 9.6 K/mm3 (4.4-11.0)
[2024-05-31] MEDS: Budesonide Respules 0.5 MG/2 ML AMPUL.NEB. INHALATION ×2 (06:41→20:15)
[2024-05-31 06:49] LABS: Anion Gap 4 (5-15); BUN 21 mg/dL (7-18); Calcium,Total 8.9 mg/dL (8.5-10.1); Chloride 104 mmol/L (98-107); Creatinine, Serum 0.95 mg/dL (0.55-1.02); EST Glomerular Filtration Rate 62 mL/min (>60); Est Glom Filt Rate - Afr Amer 75 mL/min (>60); Estimated Creatinine Clearance 49.55 ml/min; Glucose 88 mg/dL (74-106); Potassium 3.8 mmol/L (3.5-5.1); Sodium Level 142 mmol/L (136-145)
--- NOTE | 2024-05-31 07:32 | PCM.PN.INT ---
Assessment & Plan Assessment/Plan (1) Acute on chronic respiratory failure with hypoxia and hypercapnia: PLAN: Plan RECOMMENDATIONS: 1. Continue supplemental oxygen at 3 L/min during the day with ventilatory support nightly via trach. 2. Continue scheduled bronchodilators. 3. Continue appropriate DVT prophylaxis. 4. Mobilize patient as tolerated. 5. Follow-up in the pulmonary medicine clinic in June as scheduled. 6. Disposition planning for residential facility is underway. IMPRESSIONS: 1. Acute on chronic combined respiratory failure The patient has known end-stage COPD and chronic hypoxemic respiratory failure, along with baseline CO2 retention. During her last hospitalization, the patient was provided with a prescription for a new ventilator that would interface with her tracheostomy along with associated respiratory supplies, including suction catheters. The patient's acute decompensation was likely secondary to mucous plugging and failure to provide adequate suctioning and ventilatory support to the patient while at home. She does not have anything to suggest an occult infectious process on chest imaging. Therefore, I agree with continuing scheduled bronchodilators. The patient will be continued on supplemental oxygen through the day with ventilatory support with naps and nightly. The patient is otherwise stable from a respiratory perspective. I strongly believe that she would benefit from residential facility disposition, as she is clearly unable to care for herself with the assistance of her family in her home environment. 2. History of end-stage COPD/chronic hypoxemic respiratory failure/obstructive sleep apnea/frequent COPD exacerbations The patient has a known history of end-stage COPD with known outpatient medical noncompliance. She will be maintained on scheduled bronchodilators for now. Management as noted above. 3. History of hemorrhagic CVA/former tobacco dependency/history of cardiomyopathy/anxiety/depression Complicates care, management, recovery and prognosis. Continue home medications as indicated. This note was generated with [employer] dictation software. It may contain incorrect words, spelling, and punctuation that were not noted in checking the note before signing. Subjective Subjective The patient was seen and examined at the bedside this morning. Events from the last 24 hours have been reviewed. The patient is currently afebrile, hemodynamically stable and maintaining appropriate oxygen saturations on 4 L/min via nasal cannula. The patient tolerated ventilatory support overnight. She is at her baseline from a respiratory perspective. The patient is agreeable to residential facility placement. Objective Data Objective Data The patient's most recent lab work, culture data and imaging studies have all been personally reviewed. Vital Signs: Vital Signs Temp Pulse Resp BP Pulse Ox O2 Del Method O2 Flow Rate 97 F L 73 15 97/49 L 100 Mechanical Ventilator 4 05/31/24 04:00 05/31/24 06:42 05/31/24 06:42 05/31/24 04:00 05/31/24 06:42 05/31/24 06:42 05/31/24 06:42 FiO2 30 05/30/24 09:00 Oxygen Flow Rate (L/min) 4 Oxygen Delivery Method Mechanical Ventilator Weight: 151 lb 7.321 oz Body Mass Index (BMI) 28.6 Intake & Output: Intake and Output for Last 24 Hours 05/29/24 05/30/24 05/31/24 23:59 23:59 23:59 Intake Total 1000 / 1000 Output Total 250 / 250 Balance 750 / 750 Lab / Micro Data Attestation: I reviewed the patient's lab results. 05/31/24 05:44 05/31/24 05:44 Labs: Laboratory Results - last 24 hr 05/30/24 11:23: POC Glucose 94 05/30/24 16:29: POC Glucose 113 H 05/30/24 21:34: POC Glucose 107 H 05/31/24 05:44: WBC 9.6, RBC 2.84 L, Hgb 7.5 L, Hct 25.1 L, MCV 88.4, MCH 26.4 L, MCHC 29.9 L, RDW Std Deviation 50.1 H, RDW Coeff of Deonte 15.7 H, Plt Count 160, MPV 11.1, Immature Gran % (Auto) 0.400, Neut % (Auto) 66.4, Lymph % (Auto) 19.8, [place] % (Auto) 9.9, Eos % (Auto) 3.3, Baso % (Auto) 0.2, Absolute Neuts (auto) 6.4, Absolute Lymphs (auto) 1.90, Nucleated RBC % 0, Sodium 142, Potassium 3.8, Chloride 104, Carbon Dioxide 34.0 H, Anion Gap 4 L, BUN 21 H, Creatinine 0.95, Estim Creat Clear Calc 49.55, Est GFR (MDRD) Af Amer 75, Est GFR (MDRD) Non-Af 62, BUN/Creatinine Ratio 22.0 H, Glucose 88, Calcium 8.9 Micro: Microbiology 05/29/24 21:30 Sputum, Tracheal Aspirate Gram Stain - Final 05/29/24 21:30 Sputum, Tracheal Aspirate Respiratory Culture - Preliminary Culture exhibits no growth. Rhythm Strip Rhythm Strip: Sinus Tach Rate: 110 Ectopy: None Physical Exam Const alert and no apparent distress Constitutional Narrative: Chronically ill in appearance. General Appearance: cooperative HEENT normocephalic and head/scalp atraumatic HEENT Narrative: Stable tracheostomy site. Eyes PERRL, EOMs intact bilaterally and conjunctivae normal Neck supple Neck Narrative: Stable tracheostomy site with [place] valve in place. General: trachea midline Chest inspection of chest normal Resp normal respiratory effort Auscultation: diminished lung sounds Cardio regular rate and regular rhythm GI normal to inspection, nondistended, normoactive bowel sounds Extremity no clubbing, cyanosis or edema Skin no rashes or lesions noted Neuro CN's II-XII intact bilaterally and no focal motor deficits Psych cooperative and affect normal Charges/Coding Visit Charges Inpatient E&M: 39876 Subs Hosp L2
[2024-05-31] MEDS: Lactobacillis Acidophilus 1 CAP PO ×2 (08:52→20:30)
[2024-05-31] MEDS: guaiFENesin 600 MG Tablet PO ×2 (08:52→20:24)
[2024-05-31] MEDS: Aspirin E.C. 81 MG Tablet PO (08:53)
[2024-05-31] MEDS: DULoxetine Hcl 60 MG Capsule PO (08:53)
[2024-05-31] MEDS: Escitalopram Oxalate 20 MG Tablet PO (08:53)
[2024-05-31] MEDS: Pantoprazole Sodium 40 MG Tablet PO (08:53)
[2024-05-31] MEDS: Metoprolol(XL)Succ 25 MG Tablet PO (08:54)
--- NOTE | 2024-05-31 09:29 | PCM.PN.HOSP ---
Subjective Subjective No issues overnight doing well. Objective Data Objective Data Vital Signs: Vital Signs Temp Pulse Resp BP Pulse Ox O2 Del Method O2 Flow Rate 97 F L 104 H 15 97/49 L 100 Mechanical Ventilator 4 05/31/24 04:00 05/31/24 08:54 05/31/24 06:42 05/31/24 04:00 05/31/24 06:42 05/31/24 06:42 05/31/24 06:42 FiO2 30 05/30/24 09:00 Oxygen Flow Rate (L/min) 4 Oxygen Delivery Method Mechanical Ventilator Weight: 151 lb 7.321 oz Body Mass Index (BMI) 28.6 Intake & Output: Intake and Output for Last 24 Hours 05/30/24 05/31/24 06/01/24 03:59 03:59 03:59 Intake Total 500 / 500 500 / 500 Output Total 250 / 250 Balance 500 / 500 250 / 250 Lab / Micro Data 05/31/24 05:44 05/31/24 05:44 Labs: Laboratory Results - last 24 hr 05/30/24 11:23: POC Glucose 94 05/30/24 16:29: POC Glucose 113 H 05/30/24 21:34: POC Glucose 107 H 05/31/24 05:44: WBC 9.6, RBC 2.84 L, Hgb 7.5 L, Hct 25.1 L, MCV 88.4, MCH 26.4 L, MCHC 29.9 L, RDW Std Deviation 50.1 H, RDW Coeff of [place]onte 15.7 H, Plt Count 160, MPV 11.1, Immature Gran % (Auto) 0.400, Neut % (Auto) 66.4, Lymph % (Auto) 19.8, [place] % (Auto) 9.9, Eos % (Auto) 3.3, Baso % (Auto) 0.2, Absolute Neuts (auto) 6.4, Absolute Lymphs (auto) 1.90, Nucleated RBC % 0, Sodium 142, Potassium 3.8, Chloride 104, Carbon Dioxide 34.0 H, Anion Gap 4 L, BUN 21 H, Creatinine 0.95, Estim Creat Clear Calc 49.55, Est GFR (MDRD) Af Amer 75, Est GFR (MDRD) Non-Af 62, BUN/Creatinine Ratio 22.0 H, Glucose 88, Calcium 8.9 Micro: Microbiology 05/29/24 21:30 Sputum, Tracheal Aspirate Gram Stain - Final 05/29/24 21:30 Sputum, Tracheal Aspirate Respiratory Culture - Preliminary Culture exhibits no growth. Rhythm Strip Rhythm Strip: Sinus Tach Rate: 110 Ectopy: None Physical Exam Narrative General: Alert, Oriented x3, Cooperative, No apparent distress HEENT: Atraumatic, PERRLA, EOMI, Normocephalic Oral: Moist Mucosa Neck: Supple, No JVD Lungs: Diminished, Normal air movement, No rhonchi, No wheeze, No rales Cardiovascular: Regular rate, Regular Rhythm, Normal S1, Normal S2, No murmurs Abdomen: Soft, Non Tender, Non-Distended, No Hepato-splenomegaly Extremities: No edema, Capillary Refill Less than 3 Seconds Skin: No rashes, No breakdown Musculoskeletal: No Tenderness to Palpation of Joints or Extremities Neurological: No focal neurological deficits, Motor Exam 5/5 strength throughout, Sensory exam intact to light touch and pain Psych/Mental Status: Normal Affect, Appropriate Assessment & Plan Assessment/Plan (1) Acute on chronic hypoxic respiratory failure: PLAN: Plan 1. Recurrent acute on chronic hypoxic respiratory failure, history of end-stage COPD s/p tracheostomy ? Admit under inpatient status to ICU. Pulmonology consulted. Most likely cause of recurrent failure seems to be mucous plugging. Patient was dehydrated from polyuria from hyperglycemia as noted below and this may have been contributing. Low concern for recurrent pneumonia or COPD exacerbation. Will hold on antibiotics or steroids for now. Continue home inhalers. Pep therapy ordered. Will continue on ventilator at low settings overnight and defer to pulmonology for further recommendations. ? Continue with budesonide and hold systemic steroids ? Her cough has been deflated and I discussed with her the possibility of needing to go to SNF given the multiple admissions that she has had in the hospital recently 2. Chronic systolic CHF/CAD/essential HTN/HLD/history of CVA ? Last echo was on 03/04/2024 with an EF of 45 to 50% and mild global LV hypokinesis ? Resume her home blood pressure medications ? Monitor make adjustments as necessary ? Continue to hold Lasix for now though her renal function has improved back to her baseline 3. Hyperglycemia ? Blood glucose 310 on admit. ? A1c in November was 4.8 ? Blood sugars elevated due to steroids 4. Chronic debility ? Lives at home with significant other and has other family available to help her. Went home after previous hospitalization and presume plan will be the same after this hospitalization. No need for therapy consults at this time. ? PT/OT discussed the possibility of SNF placement on discharge 5. Anxiety/depression ? Stable ? Continue with her home medications 6. GERD ? Stable ? Continue with PPI 7. Iron deficiency anemia ? Will check a fecal occult ? Iron studies back in April demonstrated iron deficiency with a low iron, high TIBC, low saturation. Unfortunate that time a ferritin was not obtained ? Will provide a dose of Venofer today DVT: Lovenox Charges/Coding Visit Charges Inpatient E&M: 02856 Subs Hosp L2
--- NOTE | 2024-05-31 09:36 | CASEMGMT ---
Discharge Planning A list of SNF providers including quality and resource use data and consistent with the patient's preferred geographic region, medical needs, and insurance network was created in [facility]Port Guide.? This list was provided to the SW. Carmen Butterfield Discharge Planning Asst.
--- NOTE | 2024-05-31 09:43 | CASEMGMT ---
Addendum entered by Carmen Butterfield 05/31/24 10:03: Both [facility] and [facility] have accepted. Carmen Butterfield DC Planning Asst. Original Note: Discharge Planning Referral sent via [facility]Port to [place], [facility], and [facility]. Carmen Butterfield DC Planning Asst.
[2024-05-31] MEDS: Enoxaparin 40 MG/0.4 ML Syringe SC (10:46)
[2024-05-31] MEDS: Sodium Ferric Gluconat/Sucrose 250 MG in 0.9% Normal Saline (250mL Bag) 250 ML 135 MG IV (10:46)
[2024-05-31 11:58] LABS: Bedside Glucose 139 mg/dL (74-106)
--- NOTE | 2024-05-31 16:17 | CASEMGMT ---
Social Work Chuck Long at [facility] and met with pt and pt's brother to discuss need for SNF placement and appropriate respiratory care for new vent. Referral sent to facilities that accept vents. [facility] and [facility] are able to accept. [facility] met with pt, pt's brother and pt's boyfriend to discuss SNF placement. All parties are agreeable that pt does require SNF stay at this time. Pt and family to review SNF list of choices. SW will follow up with pt on Wednesday for continued discharge planning for most appropriate and safest discharge plan. Pt understanding. Plan: SNF placement for trach and vent care. RUI Noble
[2024-05-31 16:46] LABS: Bedside Glucose 98 mg/dL (74-106)
[2024-05-31] MEDS: Atorvastatin Calcium 40 MG Tablet PO (20:24)
[2024-05-31] MEDS: Mirtazapine 15 MG Tablet 7.5 MG PO (20:24)
[2024-05-31] MEDS: Gabapentin 300 MG Capsule PO (20:25)
[2024-05-31] MEDS: ARIPiprazole 2 MG Tablet PO (20:29)
[2024-06-01] VITALS (25 sets, daily range): BP systolic 87–135; BP diastolic 47–65; PULSE 79–105; RESP 14–20; TEMP 35.9–37.1; O2SAT 3–100; BMI 28.6
[2024-06-01 06:20] LABS: Absolute Lymphocyte Count 1.21 X10^3/uL (0.83-4.51); Absolute Neutrophil Count 5.7 X10^3/uL (2.0-7.7); Basophil# 0.02 X10^3/uL; Basophil% 0.2 % (0-1); Eosinophil# 0.38 X10^3/uL; Eosinophils% 4.4 % (0-5); Hematocrit 23.4 % (37-47); Hemoglobin 6.8 g/dL (12.0-15.0); Lymphocyte # 1.21 X10^3/ul (0.83-4.51); Mean Corp Hgb Conc 29.1 g/dL (32-36); Mean Corpuscular Hgb 26.3 pg (27.0-32.0); Mean Corpuscular Volume 90.3 fL (81-99); Mean Platelet Vol. 11.2 fl (6.2-12.0); Monocyte# 1.29 X10^3/uL; Monocyte% 14.9 % (0-10); NRBC Flagged by Analyzer 0 % (0-5); Neutrophil # 5.71 X10^3/uL (2.7-7.7); Platelet Count 139 K/mm3 (150-450); RBC Distribution Width CV 15.9 % (11.6-14.6); RBC Distribution Width SD 51.8 fl (35.1-43.9); Red Blood Count 2.59 M/mm3 (4.2-5.4); White Blood Count 8.7 K/mm3 (4.4-11.0)
[2024-06-01] MEDS: ALPRAZolam 0.5 MG Tablet PO ×3 (06:46→17:54)
[2024-06-01 07:24] LABS: Anion Gap 3 (5-15); BUN 22 mg/dL (7-18); BUN/Creat Ratio 28.4 RATIO (10-20); Calcium,Total 8.3 mg/dL (8.5-10.1); Chloride 108 mmol/L (98-107); Creatinine, Serum 0.78 mg/dL (0.55-1.02); EST Glomerular Filtration Rate 78 mL/min (>60); Est Glom Filt Rate - Afr Amer 95 mL/min (>60); Estimated Creatinine Clearance 58.84 ml/min; Glucose 99 mg/dL (74-106); Potassium 3.6 mmol/L (3.5-5.1); Sodium Level 144 mmol/L (136-145)
[2024-06-01] MEDS: Budesonide Respules 0.5 MG/2 ML AMPUL.NEB. INHALATION ×2 (07:26→19:46)
[2024-06-01] MEDS: Ipratropium/Albuterol Sulfate 3 ML AMPUL.NEB INHALATION ×3 (07:26→19:46)
[2024-06-01] MEDS: Aspirin E.C. 81 MG Tablet PO (08:49)
[2024-06-01] MEDS: Lactobacillis Acidophilus 1 CAP PO ×2 (09:00→21:03)
[2024-06-01] MEDS: Enoxaparin 40 MG/0.4 ML Syringe SC (09:00)
[2024-06-01] MEDS: Escitalopram Oxalate 20 MG Tablet PO (09:00)
[2024-06-01] MEDS: Pantoprazole Sodium 40 MG Tablet PO (09:00)
[2024-06-01] MEDS: DULoxetine Hcl 60 MG Capsule PO (09:00)
[2024-06-01] MEDS: Metoprolol(XL)Succ 25 MG Tablet PO (09:01)
[2024-06-01] MEDS: guaiFENesin 600 MG Tablet PO ×2 (09:01→21:03)
--- NOTE | 2024-06-01 11:19 | PN.HOSP_ITS ---
Subjective Subjective Doing well, no issues overnight. Hemoglobin today is down to 6.8 will be transfused fecal occult is still pending Objective Data Objective Data Vital Signs: Vital Signs Temp Pulse Resp BP Pulse Ox O2 Del Method O2 Flow Rate 97.9 F 102 H 16 108/55 L 95 Nasal Cannula 4 06/01/24 11:00 06/01/24 11:00 06/01/24 11:00 06/01/24 11:00 06/01/24 11:00 06/01/24 11:00 06/01/24 11:00 FiO2 30 05/30/24 09:00 Oxygen Flow Rate (L/min) 4 Oxygen Delivery Method Nasal Cannula Weight: 151 lb 7.321 oz Body Mass Index (BMI) 28.6 Intake & Output: Intake and Output for Last 24 Hours 05/31/24 06/01/24 06/02/24 03:59 03:59 03:59 Intake Total 500 / 500 270 / 270 Output Total 250 / 250 150 / 150 Balance 250 / 250 120 / 120 Lab / Micro Data 06/01/24 04:55 06/01/24 04:55 Labs: Laboratory Results - last 24 hr 05/31/24 11:39: POC Glucose 139 H 05/31/24 16:28: POC Glucose 98 06/01/24 04:55: WBC 8.7, RBC 2.59 L, Hgb 6.8 L, Hct 23.4 L, MCV 90.3, MCH 26.3 L , MCHC 29.1 L, RDW Std Deviation 51.8 H, RDW Coeff of Deonte 15.9 H, Plt Count 139 L, MPV 11.2, Immature Gran % (Auto) 0.500, Neut % (Auto) 66.0, Lymph % (Auto) 14.0 L, [place] % (Auto) 14.9 H, Eos % (Auto) 4.4, Baso % (Auto) 0.2, Absolute Neuts (auto) 5.7, Absolute Lymphs (auto) 1.21, Nucleated RBC % 0, Sodium 144, Potassium 3.6, Chloride 108 H, Carbon Dioxide 33.0 H, Anion Gap 3 L, BUN 22 H, Creatinine 0.78, Estim Creat Clear Calc 58.84, Est GFR (MDRD) Af Amer 95, Est GFR (MDRD) Non-Af 78, BUN/Creatinine Ratio 28.4 H, Glucose 99, Calcium 8.3 L Micro: Microbiology 05/29/24 21:30 Sputum, Tracheal Aspirate Gram Stain - Final 05/29/24 21:30 Sputum, Tracheal Aspirate Respiratory Culture - Final Gram positive hortensia Rhythm Strip Rhythm Strip: Sinus Tach Rate: 110 Ectopy: None Physical Exam Narrative General: Alert, Oriented x3, Cooperative, No apparent distress HEENT: Atraumatic, PERRLA, EOMI, Normocephalic Oral: Moist Mucosa Neck: Supple, No JVD Lungs: Diminished, Normal air movement, No rhonchi, No wheeze, No rales Cardiovascular: Regular rate, Regular Rhythm, Normal S1, Normal S2, No murmurs Abdomen: Soft, Non Tender, Non-Distended, No Hepato-splenomegaly Extremities: No edema, Capillary Refill Less than 3 Seconds Skin: No rashes, No breakdown Musculoskeletal: No Tenderness to Palpation of Joints or Extremities Neurological: No focal neurological deficits, Motor Exam 5/5 strength throughout, Sensory exam intact to light touch and pain Psych/Mental Status: Normal Affect, Appropriate Assessment & Plan Assessment/Plan (1) Acute on chronic hypoxic respiratory failure: PLAN: Plan 1. Recurrent acute on chronic hypoxic respiratory failure, history of end-stage COPD s/p tracheostomy ? Admit under inpatient status to ICU. Pulmonology consulted. Most likely cause of recurrent failure seems to be mucous plugging. Patient was dehydrated from polyuria from hyperglycemia as noted below and this may have been contributing. Low concern for recurrent pneumonia or COPD exacerbation. Will hold on antibiotics or steroids for now. Continue home inhalers. Pep therapy ordered. Will continue on ventilator at low settings overnight and defer to pulmonology for further recommendations. ? Continue with budesonide and hold systemic steroids ? Her cuff had been deflated on admission and I discussed with her the possibility of needing to go to SNF given the multiple admissions that she has had in the hospital recently, she has agreed to a SNF and [place] 2. Chronic systolic CHF/CAD/essential HTN/HLD/history of CVA ? Last echo was on 03/04/2024 with an EF of 45 to 50% and mild global LV hypokinesis ? Resume her home blood pressure medications ? Monitor make adjustments as necessary ?Will restart Lasix as she will be getting blood products 3. Hyperglycemia?resolved ? Blood glucose 310 on admit. ? A1c in November was 4.8 ? Blood sugars elevated due to steroids 4. Chronic debility ? Lives at home with significant other and has other family available to help her. Went home after previous hospitalization and presume plan will be the same after this hospitalization. No need for therapy consults at this time. ? PT/OT discussed the possibility of SNF placement on discharge 5. Anxiety/depression ? Stable ? Continue with her home medications 6. GERD ? Stable ? Continue with PPI 7. Iron deficiency anemia ? Will check a fecal occult ? Iron studies back in April demonstrated iron deficiency with a low iron, high TIBC, low saturation. Unfortunate that time a ferritin was not obtained ?Hemoglobin today 6.8, will transfuse 2 units DVT: SCDs Charges/Coding Visit Charges Inpatient E&M: 44570 Subs Hosp L2
[2024-06-01] MEDS: 0.9% Saline Lock 10 ML Syringe IV (14:45)
[2024-06-01] MEDS: Acetaminophen 325 MG Tablet 650 MG PO (17:45)
[2024-06-01] MEDS: Gabapentin 300 MG Capsule PO (21:02)
[2024-06-01] MEDS: Zolpidem Tartrate 5 MG Tablet 10 MG PO (21:02)
[2024-06-01] MEDS: Atorvastatin Calcium 40 MG Tablet PO (21:03)
[2024-06-01] MEDS: ARIPiprazole 2 MG Tablet PO (21:03)
[2024-06-01] MEDS: Mirtazapine 15 MG Tablet 7.5 MG PO (21:03)
--- NOTE | 2024-06-01 23:30 | CPS ---
Pt was placed on home vent unit with O2 bled in. Pt on 3L bleed in. cuff was inflated but still leak noted, volumes on home vent were 427 Leak diminished after a bit on vent but you can still hear leaking around her trach.
[2024-06-02] VITALS (12 sets, daily range): BP systolic 91–135; BP diastolic 50–69; PULSE 72–110; RESP 15–22; TEMP 36.7–37; O2SAT 94–99; BMI 28.8
[2024-06-02] MEDS: Budesonide Respules 0.5 MG/2 ML AMPUL.NEB. INHALATION ×2 (07:05→20:06)
[2024-06-02] MEDS: Ipratropium/Albuterol Sulfate 3 ML AMPUL.NEB INHALATION ×3 (07:05→20:05)
[2024-06-02 08:28] LABS: Absolute Lymphocyte Count 1.26 X10^3/uL (0.83-4.51); Absolute Neutrophil Count 5.6 X10^3/uL (2.0-7.7); Basophil# 0.03 X10^3/uL; Basophil% 0.3 % (0-1); Eosinophils% 3.5 % (0-5); Hematocrit 38.9 % (37-47); Hemoglobin 11.6 g/dL (12.0-15.0); Lymphocyte # 1.26 X10^3/ul (0.83-4.51); Lymphocyte % 14.6 % (19-41); Mean Corp Hgb Conc 29.8 g/dL (32-36); Mean Corpuscular Hgb 26.7 pg (27.0-32.0); Mean Corpuscular Volume 89.4 fL (81-99); Mean Platelet Vol. 10.9 fl (6.2-12.0); Monocyte# 1.37 X10^3/uL; Monocyte% 15.9 % (0-10); NRBC Flagged by Analyzer 0 % (0-5); Neutrophil # 5.55 X10^3/uL (2.7-7.7); Neutrophil % 64.4 % (47-70); Platelet Count 104 K/mm3 (150-450); RBC Distribution Width CV 16.5 % (11.6-14.6); RBC Distribution Width SD 52.8 fl (35.1-43.9); Red Blood Count 4.35 M/mm3 (4.2-5.4); White Blood Count 8.6 K/mm3 (4.4-11.0)
[2024-06-02] MEDS: Aspirin E.C. 81 MG Tablet PO (08:36)
[2024-06-02] MEDS: Metoprolol(XL)Succ 25 MG Tablet PO (08:36)
[2024-06-02] MEDS: guaiFENesin 600 MG Tablet PO ×2 (08:36→21:00)
[2024-06-02] MEDS: Escitalopram Oxalate 20 MG Tablet PO (08:36)
[2024-06-02] MEDS: Pantoprazole Sodium 40 MG Tablet PO (08:36)
[2024-06-02] MEDS: Lactobacillis Acidophilus 1 CAP PO ×2 (08:37→21:01)
[2024-06-02] MEDS: DULoxetine Hcl 60 MG Capsule PO (08:37)
[2024-06-02 10:06] LABS: Anion Gap 4 (5-15); BUN 16 mg/dL (7-18); BUN/Creat Ratio 21.2 RATIO (10-20); Calcium,Total 9.4 mg/dL (8.5-10.1); Chloride 108 mmol/L (98-107); Creatinine, Serum 0.76 mg/dL (0.55-1.02); EST Glomerular Filtration Rate 81 mL/min (>60); Est Glom Filt Rate - Afr Amer 98 mL/min (>60); Estimated Creatinine Clearance 59.05 ml/min; Glucose 97 mg/dL (74-106); Sodium Level 143 mmol/L (136-145)
[2024-06-02] MEDS: ALPRAZolam 0.5 MG Tablet PO (12:55)
--- NOTE | 2024-06-02 13:35 | CASEMGMT ---
SW spoke with patient about d/c plan. Patient wants to go [facility]. Plan: [facility] pending bed availability and pre-cert. Farzaneh MALHOTRA
--- NOTE | 2024-06-02 15:37 | PCM.PN.HOSP ---
Subjective Subjective Doing well, no issues overnight Objective Data Objective Data Vital Signs: Vital Signs Temp Pulse Resp BP Pulse Ox O2 Del Method O2 Flow Rate 98.3 F 88 16 126/69 H 99 Nasal Cannula 5 06/02/24 14:29 06/02/24 14:29 06/02/24 14:29 06/02/24 14:29 06/02/24 14:29 06/02/24 14:29 06/02/24 14:29 FiO2 30 05/30/24 09:00 Oxygen Flow Rate (L/min) 5 Oxygen Delivery Method Nasal Cannula Weight: 152 lb 8.958 oz Body Mass Index (BMI) 28.8 Intake & Output: Intake and Output for Last 24 Hours 06/01/24 06/02/24 06/03/24 03:59 03:59 03:59 Intake Total 270 / 270 500 / 500 100 / 100 Output Total 150 / 150 550 / 550 200 / 200 Balance 120 / 120 -50 / -50 -100 / -100 Lab / Micro Data 06/02/24 08:00 06/02/24 08:00 Labs: Laboratory Results - last 24 hr 06/01/24 11:58: Blood Type A POSITIVE, Antibody Screen NEGATIVE, Crossmatch See Detail 06/02/24 08:00: WBC 8.6, RBC 4.35, Hgb 11.6 L, Hct 38.9, MCV 89.4, MCH 26.7 L, MCHC 29.8 L, RDW Std Deviation 52.8 H, RDW Coeff of Deonte 16.5 H, Plt Count 104 L, MPV 10.9, Immature Gran % (Auto) 1.300 H, Neut % (Auto) 64.4, Lymph % (Auto) 14.6 L, [place] % (Auto) 15.9 H, Eos % (Auto) 3.5, Baso % (Auto) 0.3, Absolute Neuts (auto) 5.6, Absolute Lymphs (auto) 1.26, Nucleated RBC % 0, Sodium 143, Potassium 4.0, Chloride 108 H, Carbon Dioxide 32.0, Anion Gap 4 L, BUN 16, Creatinine 0.76, Estim Creat Clear Calc 59.05, Est GFR (MDRD) Af Amer 98, Est GFR (MDRD) Non-Af 81, BUN/Creatinine Ratio 21.2 H, Glucose 97, Calcium 9.4 Micro: Microbiology 11/25/24 21:30 Sputum, Tracheal Aspirate Gram Stain - Final 05/29/24 21:30 Sputum, Tracheal Aspirate Respiratory Culture - Final Gram positive hortensia Rhythm Strip Rhythm Strip: Sinus Tach Rate: 110 Ectopy: None Physical Exam Narrative General: Alert, Oriented x3, Cooperative, No apparent distress HEENT: Atraumatic, PERRLA, EOMI, Normocephalic Oral: Moist Mucosa Neck: Supple, No JVD Lungs: Diminished, Normal air movement, No rhonchi, No wheeze, No rales Cardiovascular: Regular rate, Regular Rhythm, Normal S1, Normal S2, No murmurs Abdomen: Soft, Non Tender, Non-Distended, No Hepato-splenomegaly Extremities: No edema, Capillary Refill Less than 3 Seconds Skin: No rashes, No breakdown Musculoskeletal: No Tenderness to Palpation of Joints or Extremities Neurological: No focal neurological deficits, Motor Exam 5/5 strength throughout, Sensory exam intact to light touch and pain Psych/Mental Status: Normal Affect, Appropriate Assessment & Plan Assessment/Plan (1) Acute on chronic hypoxic respiratory failure: PLAN: Plan 1. Recurrent acute on chronic hypoxic respiratory failure, history of end-stage COPD s/p tracheostomy ? Admit under inpatient status to ICU. Pulmonology consulted. Most likely cause of recurrent failure seems to be mucous plugging. Patient was dehydrated from polyuria from hyperglycemia as noted below and this may have been contributing. Low concern for recurrent pneumonia or COPD exacerbation. Will hold on antibiotics or steroids for now. Continue home inhalers. Pep therapy ordered. Will continue on ventilator at low settings overnight and defer to pulmonology for further recommendations. ? Continue with budesonide and hold systemic steroids ? Her cuff had been deflated on admission and I discussed with her the possibility of needing to go to SNF given the multiple admissions that she has had in the hospital recently, she has agreed to a SNF and [place] ? Awaiting pre-CERT and SNF exceptions 2. Chronic systolic CHF/CAD/essential HTN/HLD/history of CVA ? Last echo was on 03/04/2024 with an EF of 45 to 50% and mild global LV hypokinesis ? Resume her home blood pressure medications ? Monitor make adjustments as necessary ?Continue with Lasix 3. Hyperglycemia?resolved ? Blood glucose 310 on admit. ? A1c in November was 4.8 ? Blood sugars elevated due to steroids 4. Chronic debility ? Lives at home with significant other and has other family available to help her. Went home after previous hospitalization and presume plan will be the same after this hospitalization. No need for therapy consults at this time. ? PT/OT discussed the possibility of SNF placement on discharge 5. Anxiety/depression ? Stable ? Continue with her home medications 6. GERD ? Stable ? Continue with PPI 7. Iron deficiency anemia ? Will check a fecal occult ? Iron studies back in April demonstrated iron deficiency with a low iron, high TIBC, low saturation. Unfortunate that time a ferritin was not obtained ?Hemoglobin today 11.6 DVT: SCDs Charges/Coding Visit Charges Inpatient E&M: 05180 Subs Hosp L1
[2024-06-02] MEDS: Furosemide 20 MG Tablet PO (18:56)
[2024-06-02] MEDS: Atorvastatin Calcium 40 MG Tablet PO (21:00)
[2024-06-02] MEDS: Mirtazapine 15 MG Tablet 7.5 MG PO (21:00)
[2024-06-02] MEDS: Zolpidem Tartrate 5 MG Tablet 10 MG PO (21:00)
[2024-06-02] MEDS: Gabapentin 300 MG Capsule PO (21:00)
[2024-06-02] MEDS: ARIPiprazole 2 MG Tablet PO (21:01)
[2024-06-02] MEDS: Acetaminophen 325 MG Tablet 650 MG PO (21:08)
[2024-06-03] VITALS (13 sets, daily range): BP systolic 70–121; BP diastolic 50–66; PULSE 72–107; RESP 15–20; TEMP 36.3–36.9; O2SAT 94–99; BMI 28.8
[2024-06-03] MEDS: Ipratropium/Albuterol Sulfate 3 ML AMPUL.NEB INHALATION ×4 (01:25→19:49)
[2024-06-03 05:06] LABS: Hematocrit 32.3 % (37-47); Hemoglobin 9.5 g/dL (12.0-15.0); Mean Corp Hgb Conc 29.4 g/dL (32-36); Mean Corpuscular Hgb 26.6 pg (27.0-32.0); Mean Corpuscular Volume 90.5 fL (81-99); Mean Platelet Vol. 11.1 fl (6.2-12.0); Platelet Count 106 K/mm3 (150-450); RBC Distribution Width CV 15.9 % (11.6-14.6); RBC Distribution Width SD 51.8 fl (35.1-43.9); Red Blood Count 3.57 M/mm3 (4.2-5.4); White Blood Count 7.1 K/mm3 (4.4-11.0)
[2024-06-03] MEDS: Budesonide Respules 0.5 MG/2 ML AMPUL.NEB. INHALATION ×2 (07:38→19:49)
[2024-06-03] MEDS: Lactobacillis Acidophilus 1 CAP PO ×2 (09:21→20:45)
[2024-06-03] MEDS: Aspirin E.C. 81 MG Tablet PO (09:21)
[2024-06-03] MEDS: guaiFENesin 600 MG Tablet PO ×2 (09:21→20:44)
[2024-06-03] MEDS: DULoxetine Hcl 60 MG Capsule PO (09:21)
[2024-06-03] MEDS: Pantoprazole Sodium 40 MG Tablet PO (09:21)
[2024-06-03] MEDS: Escitalopram Oxalate 20 MG Tablet PO (09:21)
--- NOTE | 2024-06-03 10:12 | PN.HOSP_ITS ---
Subjective Subjective Doing well, had some hypotensive episode overnight, will hold her morning blood pressure meds. Hemoglobin is 9.5, it does appear that it had over corrected yesterday with the 2 units of blood Objective Data Objective Data Vital Signs: Vital Signs Temp Pulse Resp BP Pulse Ox O2 Del Method O2 Flow Rate 97.4 F L 78 20 H 93/56 L 99 Mechanical Ventilator 6 06/03/24 06:15 06/03/24 07:38 06/03/24 07:38 06/03/24 06:15 06/03/24 06:15 06/03/24 08:38 06/03/24 04:50 FiO2 30 05/30/24 09:00 Oxygen Flow Rate (L/min) 6 Oxygen Delivery Method Mechanical Ventilator Weight: 152 lb 8.958 oz Body Mass Index (BMI) 28.8 Intake & Output: Intake and Output for Last 24 Hours 06/02/24 06/03/24 06/04/24 03:59 03:59 03:59 Intake Total 500 / 500 100 / 100 Output Total 550 / 550 1325 / 1325 200 / 200 Balance -50 / -50 -1225 / -1225 -200 / -200 Lab / Micro Data 06/03/24 04:55 06/02/24 08:00 Labs: Laboratory Results - last 24 hr 06/03/24 04:55: WBC 7.1, RBC 3.57 L, Hgb 9.5 L, Hct 32.3 L, MCV 90.5, MCH 26.6 L , MCHC 29.4 L, RDW Std Deviation 51.8 H, RDW Coeff of Deonte 15.9 H, Plt Count 106 L, MPV 11.1 Micro: Microbiology 05/29/24 21:30 Sputum, Tracheal Aspirate Gram Stain - Final 05/29/24 21:30 Sputum, Tracheal Aspirate Respiratory Culture - Final Gram positive hortensia Rhythm Strip Rhythm Strip: Sinus Tach Rate: 110 Ectopy: None Physical Exam Narrative General: Alert, Oriented x3, Cooperative, No apparent distress HEENT: Atraumatic, PERRLA, EOMI, Normocephalic Oral: Moist Mucosa Neck: Supple, No JVD Lungs: Diminished, Normal air movement, No rhonchi, No wheeze, No rales Cardiovascular: Regular rate, Regular Rhythm, Normal S1, Normal S2, No murmurs Abdomen: Soft, Non Tender, Non-Distended, No Hepato-splenomegaly Extremities: No edema, Capillary Refill Less than 3 Seconds Skin: No rashes, No breakdown Musculoskeletal: No Tenderness to Palpation of Joints or Extremities Neurological: No focal neurological deficits, Motor Exam 5/5 strength throughout, Sensory exam intact to light touch and pain Psych/Mental Status: Normal Affect, Appropriate Assessment & Plan Assessment/Plan (1) Acute on chronic hypoxic respiratory failure: PLAN: Plan 1. Recurrent acute on chronic hypoxic respiratory failure, history of end-stage COPD s/p tracheostomy ? Admit under inpatient status to ICU. Pulmonology consulted. Most likely cause of recurrent failure seems to be mucous plugging. Patient was dehydrated from polyuria from hyperglycemia as noted below and this may have been contributing. Low concern for recurrent pneumonia or COPD exacerbation. Will hold on antibiotics or steroids for now. Continue home inhalers. Pep therapy ordered. Will continue on ventilator at low settings overnight and defer to pulmonology for further recommendations. ? Continue with budesonide and hold systemic steroids ? Her cuff had been deflated on admission and I discussed with her the possibility of needing to go to SNF given the multiple admissions that she has had in the hospital recently, she has agreed to a SNF and [place] ? Awaiting pre-CERT and SNF exceptions 2. Chronic systolic CHF/CAD/essential HTN/HLD/history of CVA ? Last echo was on 03/04/2024 with an EF of 45 to 50% and mild global LV hypokinesis ? Resume her home blood pressure medications ? Monitor make adjustments as necessary ?Continue with Lasix 3. Hyperglycemia?resolved ? Blood glucose 310 on admit. ? A1c in November was 4.8 ? Blood sugars elevated due to steroids 4. Chronic debility ? Lives at home with significant other and has other family available to help her. Went home after previous hospitalization and presume plan will be the same after this hospitalization. No need for therapy consults at this time. ? PT/OT discussed the possibility of SNF placement on discharge 5. Anxiety/depression ? Stable ? Continue with her home medications 6. GERD ? Stable ? Continue with PPI 7. Iron deficiency anemia ? Will check a fecal occult ? Iron studies back in April demonstrated iron deficiency with a low iron, high TIBC, low saturation. Unfortunate that time a ferritin was not obtained ? Hemoglobin today is 9.5 DVT: SCDs Charges/Coding Visit Charges Inpatient E&M: 24791 Subs Hosp L1
[2024-06-03] MEDS: Polyethylene Glycol 3350 17 GM PACKET PO (11:20)
[2024-06-03] MEDS: ALPRAZolam 0.5 MG Tablet PO ×2 (14:19→20:43)
--- NOTE | 2024-06-03 19:59 | CPS ---
Aero Tx given in-line on home vent
--- NOTE | 2024-06-03 20:38 | CPS ---
RN called [facility] that patient was having pain with her trach. Trach was found to be pulled out partially, cuff deflated and trach was positioned back to correct position. cuff re-inflated and patient placed back on her home vent with 4L bled in.
[2024-06-03] MEDS: Gabapentin 300 MG Capsule PO (20:42)
[2024-06-03] MEDS: Zolpidem Tartrate 5 MG Tablet 10 MG PO (20:43)
[2024-06-03] MEDS: Atorvastatin Calcium 40 MG Tablet PO (20:44)
[2024-06-03] MEDS: Mirtazapine 15 MG Tablet 7.5 MG PO (20:46)
[2024-06-03] MEDS: ARIPiprazole 2 MG Tablet PO (20:46)
[2024-06-03] MEDS: 0.9% Saline Lock 10 ML Syringe IV (20:50)
[2024-06-04] VITALS (11 sets, daily range): BP systolic 118–155; BP diastolic 53–78; PULSE 88–113; RESP 16–24; TEMP 36.6–36.9; O2SAT 92–100; BMI 26.7
[2024-06-04] MEDS: Budesonide Respules 0.5 MG/2 ML AMPUL.NEB. INHALATION ×2 (06:45→20:01)
[2024-06-04] MEDS: Ipratropium/Albuterol Sulfate 3 ML AMPUL.NEB INHALATION ×3 (06:45→20:01)
[2024-06-04] MEDS: Pantoprazole Sodium 40 MG Tablet PO (08:39)
[2024-06-04] MEDS: DULoxetine Hcl 60 MG Capsule PO (08:39)
[2024-06-04] MEDS: Metoprolol(XL)Succ 25 MG Tablet PO (08:39)
[2024-06-04] MEDS: guaiFENesin 600 MG Tablet PO ×3 (08:39→20:18)
[2024-06-04] MEDS: Escitalopram Oxalate 20 MG Tablet PO (08:39)
[2024-06-04] MEDS: Aspirin E.C. 81 MG Tablet PO (08:40)
[2024-06-04] MEDS: Furosemide 20 MG Tablet PO ×2 (08:40→17:02)
[2024-06-04] MEDS: Lactobacillis Acidophilus 1 CAP PO ×2 (08:41→20:17)
[2024-06-04] MEDS: Polyethylene Glycol 3350 17 GM PACKET PO (08:45)
[2024-06-04] MEDS: Acetaminophen 325 MG Tablet 650 MG PO ×2 (08:53→17:30)
[2024-06-04] MEDS: Albuterol 2.5 MG/3 ML VIAL.NEB. INHALATION (09:32)
--- NOTE | 2024-06-04 11:21 | PCM.PN.HOSP ---
Subjective Subjective No issues overnight, doing well Objective Data Objective Data Vital Signs: Vital Signs Temp Pulse Resp BP Pulse Ox O2 Del Method O2 Flow Rate 98.3 F 112 H 20 H 155/77 H 96 Mechanical Ventilator 4 06/04/24 08:31 06/04/24 09:32 06/04/24 09:32 06/04/24 08:31 06/04/24 08:31 06/04/24 08:57 06/04/24 08:31 FiO2 30 05/30/24 09:00 Oxygen Flow Rate (L/min) 4 Oxygen Delivery Method Mechanical Ventilator Weight: 141 lb 8.588 oz Body Mass Index (BMI) 26.7 Intake & Output: Intake and Output for Last 24 Hours 06/03/24 06/04/24 06/05/24 03:59 03:59 03:59 Intake Total 100 / 100 360 / 360 0 / 0 Output Total 1325 / 1325 200 / 200 0 / 0 Balance -1225 / -1225 160 / 160 0 / 0 Lab / Micro Data 06/03/24 04:55 06/02/24 08:00 Micro: Microbiology 05/29/24 21:30 Sputum, Tracheal Aspirate Gram Stain - Final 05/29/24 21:30 Sputum, Tracheal Aspirate Respiratory Culture - Final Gram positive hortensia Rhythm Strip Rhythm Strip: Sinus Tach Rate: 110 Ectopy: None Physical Exam Narrative General: Alert, Oriented x3, Cooperative, No apparent distress HEENT: Atraumatic, PERRLA, EOMI, Normocephalic Oral: Moist Mucosa Neck: Supple, No JVD, trach Lungs: Diminished, Normal air movement, No rhonchi, No wheeze, No rales Cardiovascular: Regular rate, Regular Rhythm, Normal S1, Normal S2, No murmurs Abdomen: Soft, Non Tender, Non-Distended, No Hepato-splenomegaly Extremities: No edema, Capillary Refill Less than 3 Seconds Skin: No rashes, No breakdown Musculoskeletal: No Tenderness to Palpation of Joints or Extremities Neurological: No focal neurological deficits, Motor Exam 5/5 strength throughout, Sensory exam intact to light touch and pain Psych/Mental Status: Normal Affect, Appropriate Assessment & Plan Assessment/Plan (1) Acute on chronic hypoxic respiratory failure: PLAN: Plan 1. Recurrent acute on chronic hypoxic respiratory failure, history of end-stage COPD s/p tracheostomy ? Admit under inpatient status to ICU. Pulmonology consulted. Most likely cause of recurrent failure seems to be mucous plugging. Patient was dehydrated from polyuria from hyperglycemia as noted below and this may have been contributing. Low concern for recurrent pneumonia or COPD exacerbation. Will hold on antibiotics or steroids for now. Continue home inhalers. Pep therapy ordered. Will continue on ventilator at low settings overnight and defer to pulmonology for further recommendations. ? Continue with budesonide and hold systemic steroids ? Her cuff had been deflated on admission and I discussed with her the possibility of needing to go to SNF given the multiple admissions that she has had in the hospital recently, she has agreed to a SNF and [place] ? Awaiting pre-CERT and SNF exceptions 2. Chronic systolic CHF/CAD/essential HTN/HLD/history of CVA ? Last echo was on 03/04/2024 with an EF of 45 to 50% and mild global LV hypokinesis ? Resume her home blood pressure medications ? Monitor make adjustments as necessary ?Continue with Lasix 3. Hyperglycemia?resolved ? Blood glucose 310 on admit. ? A1c in November was 4.8 ? Blood sugars elevated due to steroids 4. Chronic debility ? Lives at home with significant other and has other family available to help her. Went home after previous hospitalization and presume plan will be the same after this hospitalization. No need for therapy consults at this time. ? PT/OT discussed the possibility of SNF placement on discharge 5. Anxiety/depression ? Stable ? Continue with her home medications 6. GERD ? Stable ? Continue with PPI 7. Iron deficiency anemia ? Will check a fecal occult, will start on MiraLAX as it does not appear that she has had a bowel movement since admission ? Iron studies back in April demonstrated iron deficiency with a low iron, high TIBC, low saturation. Unfortunate that time a ferritin was not obtained ? Recheck hemoglobin in the morning DVT: SCDs Charges/Coding Visit Charges Inpatient E&M: 90429 Subs Hosp L2
[2024-06-04] MEDS: ALPRAZolam 0.5 MG Tablet PO (17:05)
[2024-06-04] MEDS: Atorvastatin Calcium 40 MG Tablet PO (20:17)
[2024-06-04] MEDS: ARIPiprazole 2 MG Tablet PO (20:17)
[2024-06-04] MEDS: Zolpidem Tartrate 5 MG Tablet 10 MG PO (20:17)
[2024-06-04] MEDS: Mirtazapine 15 MG Tablet 7.5 MG PO (20:18)
[2024-06-04] MEDS: Gabapentin 300 MG Capsule PO (20:18)
[2024-06-04] MEDS: 0.9% Saline Lock 10 ML Syringe IV (20:21)
[2024-06-05] VITALS (14 sets, daily range): BP systolic 110–129; BP diastolic 54–80; PULSE 89–105; RESP 14–22; TEMP 36.1–37.3; O2SAT 92–99; BMI 26.7
[2024-06-05 02:22] LABS: Anion Gap 2 (5-15); BUN 13 mg/dL (7-18); BUN/Creat Ratio 17.1 RATIO (10-20); Calcium,Total 9.2 mg/dL (8.5-10.1); Chloride 100 mmol/L (98-107); Creatinine, Serum 0.76 mg/dL (0.55-1.02); EST Glomerular Filtration Rate 80 mL/min (>60); Est Glom Filt Rate - Afr Amer 97 mL/min (>60); Estimated Creatinine Clearance 56.96 ml/min; Glucose 87 mg/dL (74-106); Magnesium 1.6 mg/dL (1.6-2.6); Potassium 3.9 mmol/L (3.5-5.1); Sodium Level 144 mmol/L (136-145)
[2024-06-05] MEDS: ALPRAZolam 0.5 MG Tablet PO ×3 (02:37→20:15)
--- NOTE | 2024-06-05 06:10 | CPS ---
this NETWORK ADMINISTRATOR placed patient on h ome vent with 4L bled in
[2024-06-05 06:44] LABS: Absolute Lymphocyte Count 0.84 X10^3/uL (0.83-4.51); Basophil# 0.03 X10^3/uL; Basophil% 0.4 % (0-1); Eosinophil# 0.29 X10^3/uL; Eosinophils% 3.4 % (0-5); Hematocrit 33.5 % (37-47); Hemoglobin 9.9 g/dL (12.0-15.0); Lymphocyte # 0.84 X10^3/ul (0.83-4.51); Lymphocyte % 9.9 % (19-41); Mean Corp Hgb Conc 29.6 g/dL (32-36); Mean Corpuscular Hgb 27.2 pg (27.0-32.0); Mean Platelet Vol. 10.6 fl (6.2-12.0); Monocyte# 1.21 X10^3/uL; Monocyte% 14.3 % (0-10); NRBC Flagged by Analyzer 0 % (0-5); Neutrophil # 6.03 X10^3/uL (2.7-7.7); Neutrophil % 71.3 % (47-70); Platelet Count 136 K/mm3 (150-450); RBC Distribution Width CV 15.6 % (11.6-14.6); RBC Distribution Width SD 51.2 fl (35.1-43.9); Red Blood Count 3.64 M/mm3 (4.2-5.4); White Blood Count 8.5 K/mm3 (4.4-11.0)
[2024-06-05 07:03] LABS: Anion Gap 3 (5-15); BUN 14 mg/dL (7-18); BUN/Creat Ratio 19.1 RATIO (10-20); Calcium,Total 8.9 mg/dL (8.5-10.1); Chloride 97 mmol/L (98-107); Creatinine, Serum 0.73 mg/dL (0.55-1.02); EST Glomerular Filtration Rate 84 mL/min (>60); Est Glom Filt Rate - Afr Amer 101 mL/min (>60); Glucose 99 mg/dL (74-106); Potassium 3.8 mmol/L (3.5-5.1); Sodium Level 140 mmol/L (136-145)
[2024-06-05] MEDS: Ipratropium/Albuterol Sulfate 3 ML AMPUL.NEB INHALATION ×2 (07:25→19:40)
[2024-06-05] MEDS: Budesonide Respules 0.5 MG/2 ML AMPUL.NEB. INHALATION ×2 (07:25→19:40)
[2024-06-05] MEDS: Metoprolol(XL)Succ 25 MG Tablet PO (09:17)
[2024-06-05] MEDS: Pantoprazole Sodium 40 MG Tablet PO (09:17)
[2024-06-05] MEDS: Aspirin E.C. 81 MG Tablet PO (09:17)
[2024-06-05] MEDS: Furosemide 20 MG Tablet PO ×2 (09:17→17:54)
[2024-06-05] MEDS: Escitalopram Oxalate 20 MG Tablet PO (09:17)
[2024-06-05] MEDS: DULoxetine Hcl 60 MG Capsule PO (09:17)
[2024-06-05] MEDS: Lactobacillis Acidophilus 1 CAP PO ×2 (09:17→20:16)
[2024-06-05] MEDS: Polyethylene Glycol 3350 17 GM PACKET PO (09:20)
--- NOTE | 2024-06-05 09:41 | CASEMGMT ---
Addendum entered by Carmen Butterfield 06/06/24 10:43: Requested therapy updates sent to [facility]. Carmen Butterfield DC Planning Asst. Original Note: Discharge Planning Updates sent to [facility]. Carmen Butterfield DC Planning Asst.
--- NOTE | 2024-06-05 10:55 | CASEMGMT ---
[facility] patient. They have a discharge today and will initiate pre-cert for patient. Plan: d/c to [facility] pending insurance approval. Farzaneh MALHOTRA
--- NOTE | 2024-06-05 17:43 | PCM.PN.HOSP ---
Reason for Visit Reason for Visit: Diagnoses Acute and chronic respiratory failure with hypoxia (05/29/24) Acute and chronic respiratory failure with hypercapnia (05/29/24) Subjective Subjective Patient was seen and examined today, we are currently awaiting approval for the patient to go to an extended care facility for short-term rehab services. Patient does not appear to be in any respiratory distress at rest. She is currently on 5 L nasal cannula. Objective Data Objective Data Vital Signs: Vital Signs Temp Pulse Resp BP Pulse Ox O2 Del Method O2 Flow Rate 98.2 F 101 H 20 H 120/68 94 Nasal Cannula 4 06/05/24 16:00 06/05/24 16:00 06/05/24 16:00 06/05/24 16:00 06/05/24 16:02 06/05/24 16:00 06/05/24 16:02 FiO2 30 05/30/24 09:00 Oxygen Flow Rate (L/min) 4 Oxygen Delivery Method Nasal Cannula Weight: 64.3 kg Body Mass Index (BMI) 26.7 Intake & Output: Intake and Output for Last 24 Hours 06/03/24 06/04/24 06/05/24 23:59 23:59 23:59 Intake Total 240 / 360 920 / 1040 895 / 895 Output Total 200 / 200 0 / 600 1450 / 1450 Balance 40 / 160 920 / 440 -555 / -555 Lab / Micro Data 06/05/24 06:27 06/05/24 06:27 Labs: Laboratory Results - last 24 hr 06/05/24 01:50: Sodium 144, Potassium 3.9, Chloride 100, Carbon Dioxide 42.0 H, Anion Gap 2 L, BUN 13, Creatinine 0.76, Estim Creat Clear Calc 56.96, Est GFR (MDRD) Af Amer 97, Est GFR (MDRD) Non-Af 80, BUN/Creatinine Ratio 17.1, Glucose 87, Calcium 9.2, Magnesium 1.6 06/05/24 06:27: WBC 8.5, RBC 3.64 L, Hgb 9.9 L, Hct 33.5 L, MCV 92.0, MCH 27.2, MCHC 29.6 L, RDW Std Deviation 51.2 H, RDW Coeff of Deonte 15.6 H, Plt Count 136 L, MPV 10.6, Immature Gran % (Auto) 0.700, Neut % (Auto) 71.3 H, Lymph % (Auto) 9.9 L, [place] % (Auto) 14.3 H, Eos % (Auto) 3.4, Baso % (Auto) 0.4, Absolute Neuts (auto) 6.0, Absolute Lymphs (auto) 0.84, Nucleated RBC % 0, Sodium 140, Potassium 3.8, Chloride 97 L, Carbon Dioxide 40.0 H, Anion Gap 3 L, BUN 14, Creatinine 0.73, Estim Creat Clear Calc 57.00, Est GFR (MDRD) Af Amer 101, Est GFR (MDRD) Non-Af 84, BUN/Creatinine Ratio 19.1, Glucose 99, Calcium 8.9 Micro: Microbiology 05/29/24 21:30 Sputum, Tracheal Aspirate Gram Stain - Final 05/29/24 21:30 Sputum, Tracheal Aspirate Respiratory Culture - Final Gram positive hortensia Rhythm Strip Rhythm Strip: Sinus Tach Rate: 110 Ectopy: None Physical Exam Const alert, oriented x3 and no apparent distress Constitutional Narrative: Patient appears older than her stated age General Appearance: cooperative, well kempt and well developed Orientation / Consciousness: awake, oriented to person, oriented to place and oriented to time HEENT normocephalic, head/scalp atraumatic and moist oral mucous membranes HEENT Narrative: Patient has a tracheostomy in place Head and Scalp: normocephalic Eyes PERRL, EOMs intact bilaterally and conjunctivae normal Neck supple, no JVD, thyroid normal and no carotid bruits Resp normal respiratory effort, no retractions, no use of accessory muscles and clear to auscultation bilaterally Auscultation: Negative for rales, rhonchi or wheezes Cardio regular rate, regular rhythm, S1 normal heart sound, S2 normal heart sound, no murmurs, no rub and no gallops GI normal to inspection, nondistended, normoactive bowel sounds, soft to palpation, non-tender and non-distended Extremity no clubbing, cyanosis or edema Skin no rashes or lesions noted General Skin Exam: no breakdown Neuro oriented x3, CN's II-XII intact bilaterally, no focal motor deficits and no sensory deficits noted Sensorium / Orientation: awake and alert Psych affect normal Assessment & Plan Assessment/Plan (1) Acute on chronic hypoxic respiratory failure: PLAN: Plan 1. Acute on chronic hypoxic respiratory failure secondary to end-stage COPD-continue present treatment, patient is receiving scheduled bronchodilators and ventilatory support with naps and nightly. Continue budesonide aerosols #2 acute on chronic debility-we are awaiting approval for the patient to go to an extended care facility for senior living services #3 chronic systolic CHF-patient is to remain on her current medications including Lasix #4 essential hypertension-patient will remain on her current medication Total clinical time spent by myself addressing patient's medical issues, reviewing all of her data, and collaborating with patient's care team: 35 minutes Charges/Coding Visit Charges Inpatient E&M: 46129 Subs Hosp L2
[2024-06-05] MEDS: Acetaminophen 325 MG Tablet 650 MG PO (17:53)
[2024-06-05] MEDS: Atorvastatin Calcium 40 MG Tablet PO (20:15)
[2024-06-05] MEDS: Zolpidem Tartrate 5 MG Tablet 10 MG PO (20:16)
[2024-06-05] MEDS: Mirtazapine 15 MG Tablet 7.5 MG PO (20:16)
[2024-06-05] MEDS: guaiFENesin 600 MG Tablet PO (20:16)
[2024-06-05] MEDS: Gabapentin 300 MG Capsule PO (20:16)
[2024-06-05] MEDS: 0.9% Saline Lock 10 ML Syringe IV (20:17)
[2024-06-05] MEDS: ARIPiprazole 2 MG Tablet PO (20:17)
[2024-06-06] VITALS (13 sets, daily range): BP systolic 89–123; BP diastolic 47–57; PULSE 72–104; RESP 15–28; TEMP 36.8–37; O2SAT 89–100; BMI 25.9
[2024-06-06] MEDS: Ipratropium/Albuterol Sulfate 3 ML AMPUL.NEB INHALATION ×3 (07:27→19:50)
[2024-06-06] MEDS: Budesonide Respules 0.5 MG/2 ML AMPUL.NEB. INHALATION ×2 (07:27→19:50)
[2024-06-06] MEDS: Metoprolol(XL)Succ 25 MG Tablet PO (09:27)
[2024-06-06] MEDS: Pantoprazole Sodium 40 MG Tablet PO (09:27)
[2024-06-06] MEDS: DULoxetine Hcl 60 MG Capsule PO (09:27)
[2024-06-06] MEDS: Lactobacillis Acidophilus 1 CAP PO ×2 (09:27→21:18)
[2024-06-06] MEDS: Furosemide 20 MG Tablet PO ×2 (09:27→15:54)
[2024-06-06] MEDS: Aspirin E.C. 81 MG Tablet PO (09:27)
[2024-06-06] MEDS: guaiFENesin 600 MG Tablet PO ×2 (09:28→21:18)
[2024-06-06] MEDS: Escitalopram Oxalate 20 MG Tablet PO (09:28)
[2024-06-06] MEDS: Polyethylene Glycol 3350 17 GM PACKET PO (09:28)
--- NOTE | 2024-06-06 15:16 | PN.HOSP_ITS ---
Reason for Visit Reason for Visit: Diagnoses Acute and chronic respiratory failure with hypoxia (05/29/24) Acute and chronic respiratory failure with hypercapnia (05/29/24) Subjective Subjective Patient was seen and examined today, we are currently awaiting approval for the patient to go to an extended care facility for rehab services. Patient voices no complaints today, she has no complaints of any shortness of breath or chest discomfort. Objective Data Objective Data Vital Signs: Vital Signs Temp Pulse Resp BP Pulse Ox O2 Del Method O2 Flow Rate 98.5 F 90 18 123/55 H 89 Nasal Cannula 5 06/06/24 08:00 06/06/24 13:31 06/06/24 13:31 06/06/24 09:27 06/06/24 13:38 06/06/24 10:21 06/06/24 13:38 FiO2 30 05/30/24 09:00 Oxygen Flow Rate (L/min) 5 Oxygen Delivery Method Nasal Cannula Weight: 62.3 kg Body Mass Index (BMI) 25.9 Intake & Output: Intake and Output for Last 24 Hours 06/04/24 06/05/24 06/06/24 23:59 23:59 23:59 Intake Total 920 / 1040 1270 / 1390 120 / 120 Output Total 0 / 600 1925 / 1925 300 / 300 Balance 920 / 440 -655 / -535 -180 / -180 Lab / Micro Data 06/05/24 06:27 06/05/24 06:27 Micro: Microbiology 05/29/24 21:30 Sputum, Tracheal Aspirate Gram Stain - Final 05/29/24 21:30 Sputum, Tracheal Aspirate Respiratory Culture - Final Gram positive hortensia Rhythm Strip Rhythm Strip: Sinus Tach Rate: 110 Ectopy: None Physical Exam Narrative alert, oriented x3 and no apparent distress Constitutional Narrative: Patient appears older than her stated age General Appearance: cooperative, well kempt and well developed Orientation / Consciousness: awake, oriented to person, oriented to place and oriented to time HEENT normocephalic, head/scalp atraumatic and moist oral mucous membranes HEENT Narrative: Patient has a tracheostomy in place Head and Scalp: normocephalic Eyes PERRL, EOMs intact bilaterally and conjunctivae normal Neck supple, no JVD, thyroid normal and no carotid bruits Resp normal respiratory effort, no retractions, no use of accessory muscles and clear to auscultation bilaterally Auscultation: Negative for rales, rhonchi or wheezes Cardio regular rate, regular rhythm, S1 normal heart sound, S2 normal heart sound, no murmurs, no rub and no gallops GI normal to inspection, nondistended, normoactive bowel sounds, soft to palpation, non-tender and non-distended Extremity no clubbing, cyanosis or edema Skin no rashes or lesions noted General Skin Exam: no breakdown Neuro oriented x3, CN's II-XII intact bilaterally, no focal motor deficits and no sensory deficits noted Sensorium / Orientation: awake and alert Psych affect normal Assessment & Plan Assessment/Plan (1) Acute on chronic hypoxic respiratory failure: PLAN: Plan 1. Acute on chronic hypoxic respiratory failure secondary to end-stage COPD- continue present treatment, patient is receiving scheduled bronchodilators and ventilatory support with naps and nightly. Continue budesonide aerosols #2 acute on chronic debility-we are awaiting approval for the patient to go to an extended care facility for usp services #3 chronic systolic CHF-patient is to remain on her current medications including Lasix #4 essential hypertension-patient will remain on her current medication Total clinical time spent by myself addressing patient's medical issues, reviewing all of her data, and collaborating with patient's care team: 25 minutes Charges/Coding Visit Charges Inpatient E&M: 43842 [facility] L1
[2024-06-06] MEDS: Acetaminophen 325 MG Tablet 650 MG PO (15:55)
[2024-06-06] MEDS: Atorvastatin Calcium 40 MG Tablet PO (21:18)
[2024-06-06] MEDS: ARIPiprazole 2 MG Tablet PO (21:18)
[2024-06-06] MEDS: Mirtazapine 15 MG Tablet 7.5 MG PO (21:18)
[2024-06-06] MEDS: Zolpidem Tartrate 5 MG Tablet 10 MG PO (21:18)
[2024-06-06] MEDS: Gabapentin 300 MG Capsule PO (21:18)
[2024-06-07] VITALS (13 sets, daily range): BP systolic 90–132; BP diastolic 53–75; PULSE 76–112; RESP 15–24; TEMP 36.1–37.2; O2SAT 91–100; BMI 25.8
[2024-06-07] MEDS: Ipratropium/Albuterol Sulfate 3 ML AMPUL.NEB INHALATION ×3 (07:44→19:52)
[2024-06-07] MEDS: Budesonide Respules 0.5 MG/2 ML AMPUL.NEB. INHALATION ×2 (07:44→19:52)
[2024-06-07] MEDS: guaiFENesin 600 MG Tablet PO ×2 (08:59→20:14)
[2024-06-07] MEDS: Escitalopram Oxalate 20 MG Tablet PO (08:59)
[2024-06-07] MEDS: Aspirin E.C. 81 MG Tablet PO (08:59)
[2024-06-07] MEDS: Pantoprazole Sodium 40 MG Tablet PO (08:59)
[2024-06-07] MEDS: Furosemide 20 MG Tablet PO ×2 (08:59→18:17)
[2024-06-07] MEDS: Polyethylene Glycol 3350 17 GM PACKET PO (08:59)
[2024-06-07] MEDS: DULoxetine Hcl 60 MG Capsule PO (08:59)
[2024-06-07] MEDS: Lactobacillis Acidophilus 1 CAP PO ×2 (08:59→20:14)
[2024-06-07] MEDS: Metoprolol(XL)Succ 25 MG Tablet PO (09:00)
--- NOTE | 2024-06-07 09:19 | CASEMGMT ---
Patient was denied by insurance for [facility]. [facility] is offering a peer to peer. Phone number is [phone], must be done by noon, need 3-4 identifiers. SW notified physician who will complete the peer to peer. Farzaneh Macdonald PAPER TESTER [place]
--- NOTE | 2024-06-07 10:14 | CASEMGMT ---
Peer to peer was done and patient was denied. SW spoke with patient and asked if she has ever applied for Medicaid. Patient said she thinks she has, but she does not know for sure. SW let patient know that SW will contact the individual at [facility] that could possibly assist with applying for Medicaid. SW explained that since her insurance is denying her for [facility] we could possibly try and get her there on pending Medicaid if she qualifies. Patient was in agreement with this plan. IBETH called Carolina with [employer] and left her a voice mail about patient. Farzaneh Macdonald RN CHARGE [place]
[2024-06-07] MEDS: ALPRAZolam 0.5 MG Tablet PO (14:03)
--- NOTE | 2024-06-07 15:44 | CASEMGMT ---
Carolina met with patient and completed a Medicaid application with patient and her family. SW notified [facility] that Medicaid application was submitted. [facility] said [facility] would take patient on pending Medicaid. Await pending Medicaid number. Farzaneh Macdonald TELEGRAPH OFFICE ROUTE AIDE [place]
--- NOTE | 2024-06-07 18:15 | PCM.PN.HOSP ---
Reason for Visit Reason for Visit: Diagnoses Acute and chronic respiratory failure with hypoxia (05/29/24) Acute and chronic respiratory failure with hypercapnia (05/29/24) Subjective Subjective Patient was seen and examined today, her family members were in the room at the time my examination. Patient's insurance company did not approve the patient for placement in a correction facility, I talked with her insurance company physician and was told that the respiratory needs the patient is having are not considered new and that she would be more appropriate for intermediate nursing placement. According to case management, this opinion will be appealed. Objective Data Objective Data Vital Signs: Vital Signs Temp Pulse Resp BP Pulse Ox O2 Del Method O2 Flow Rate 97.1 F L 93 16 101/53 L 94 Nasal Cannula 5 06/07/24 14:09 06/07/24 14:09 06/07/24 14:09 06/07/24 14:09 06/07/24 16:52 06/07/24 14:09 06/07/24 16:52 FiO2 93 06/07/24 08:14 Oxygen Flow Rate (L/min) 5 Oxygen Delivery Method Nasal Cannula Weight: 62 kg Body Mass Index (BMI) 25.8 Intake & Output: Intake and Output for Last 24 Hours 06/05/24 06/06/24 06/07/24 23:59 23:59 23:59 Intake Total 1270 / 1390 580 / 580 350 / 350 Output Total 1925 / 1925 650 / 1350 1250 / 1250 Balance -655 / -535 -70 / -770 -900 / -900 Lab / Micro Data 06/05/24 06:27 06/05/24 06:27 Micro: Microbiology 06/07/24 10:50 Stool Stool Occult Blood ([facility]) - Final 05/29/24 21:30 Sputum, Tracheal Aspirate Gram Stain - Final 05/29/24 21:30 Sputum, Tracheal Aspirate Respiratory Culture - Final Gram positive hortensia Rhythm Strip Rhythm Strip: Sinus Tach Rate: 110 Ectopy: None Physical Exam Narrative alert, oriented x3 and no apparent distress Constitutional Narrative: Patient appears older than her stated age General Appearance: cooperative, well kempt and well developed Orientation / Consciousness: awake, oriented to person, oriented to place and oriented to time HEENT normocephalic, head/scalp atraumatic and moist oral mucous membranes HEENT Narrative: Patient has a tracheostomy in place Head and Scalp: normocephalic Eyes PERRL, EOMs intact bilaterally and conjunctivae normal Neck supple, no JVD, thyroid normal and no carotid bruits Resp normal respiratory effort, no retractions, no use of accessory muscles and clear to auscultation bilaterally Auscultation: Negative for rales, rhonchi or wheezes Cardio regular rate, regular rhythm, S1 normal heart sound, S2 normal heart sound, no murmurs, no rub and no gallops GI normal to inspection, nondistended, normoactive bowel sounds, soft to palpation, non-tender and non-distended Extremity no clubbing, cyanosis or edema Skin no rashes or lesions noted General Skin Exam: no breakdown Neuro oriented x3, CN's II-XII intact bilaterally, no focal motor deficits and no sensory deficits noted Sensorium / Orientation: awake and alert Psych affect normal Assessment & Plan Assessment/Plan (1) Acute on chronic hypoxic respiratory failure: PLAN: Plan 1. Acute on chronic hypoxic respiratory failure secondary to end-stage COPD-continue present treatment, patient is receiving scheduled bronchodilators and ventilatory support with naps and nightly. Continue budesonide aerosols #2 acute on chronic debility-we are awaiting approval for the patient to go to an extended care facility for correction services-request will have to be appealed due to the present refusal of the insurance company to approve the patient to go to a skilled facility. #3 chronic systolic CHF-patient is to remain on her current medications including Lasix #4 essential hypertension-patient will remain on her current medication Total clinical time spent by myself addressing patient's medical issues, reviewing all of her data, and collaborating with patient's care team: 25 minutes Charges/Coding Visit Charges Inpatient E&M: 23801 [facility] Hosp L1
[2024-06-07] MEDS: 0.9% Saline Lock 10 ML Syringe IV (20:13)
[2024-06-07] MEDS: Zolpidem Tartrate 5 MG Tablet 10 MG PO (20:13)
[2024-06-07] MEDS: Mirtazapine 15 MG Tablet 7.5 MG PO (20:13)
[2024-06-07] MEDS: ARIPiprazole 2 MG Tablet PO (20:14)
[2024-06-07] MEDS: Gabapentin 300 MG Capsule PO (20:14)
[2024-06-07] MEDS: Atorvastatin Calcium 40 MG Tablet PO (20:14)
[2024-06-08] VITALS (13 sets, daily range): BP systolic 94–129; BP diastolic 53–79; PULSE 70–100; RESP 15–26; TEMP 36.5–36.8; O2SAT 90–100; BMI 25.6
[2024-06-08] MEDS: Budesonide Respules 0.5 MG/2 ML AMPUL.NEB. INHALATION ×2 (07:08→20:45)
[2024-06-08] MEDS: Ipratropium/Albuterol Sulfate 3 ML AMPUL.NEB INHALATION ×3 (07:08→20:45)
[2024-06-08] MEDS: Lactobacillis Acidophilus 1 CAP PO ×2 (09:12→22:40)
[2024-06-08] MEDS: Furosemide 20 MG Tablet PO ×2 (09:13→16:56)
[2024-06-08] MEDS: Escitalopram Oxalate 20 MG Tablet PO (09:13)
[2024-06-08] MEDS: DULoxetine Hcl 60 MG Capsule PO (09:13)
[2024-06-08] MEDS: Aspirin E.C. 81 MG Tablet PO (09:13)
[2024-06-08] MEDS: guaiFENesin 600 MG Tablet PO ×2 (09:13→22:40)
[2024-06-08] MEDS: Metoprolol(XL)Succ 25 MG Tablet PO (09:13)
[2024-06-08] MEDS: Pantoprazole Sodium 40 MG Tablet PO (09:13)
[2024-06-08] MEDS: Polyethylene Glycol 3350 17 GM PACKET PO (09:13)
[2024-06-08] MEDS: Albuterol 2.5 MG/3 ML VIAL.NEB. INHALATION (09:35)
[2024-06-08] MEDS: ALPRAZolam 0.5 MG Tablet PO ×2 (10:49→22:40)
--- NOTE | 2024-06-08 11:31 | CASEMGMT ---
Addendum entered by Marya Barron 06/08/24 16:10: Social Work- IBETH received word that transport is too late, so pt will need to transport in the morning to [facility]. Plan: [facility], [facility]TC RUI Judd Addendum entered by Marya Barron 06/08/24 13:19: Social Work- IBETH spoke with Carmen at [facility] who reports that they will take pt pending medicaid and would prefer to take pt rather than [place]. IBETH updated physician. IBETH updated [place]. IBETH remains available to follow. RUI Judd Addendum entered by Marya Barron 06/08/24 12:23: IBETH called insurance [phone] to discuss appeal. Appeal can only be started via fax. . IBETH called [facility] and left a voicemail to discuss if they feel pt is skillable, as physician feels pt is LTC. IBETH spoke with [place] [facility], who reports that ATIYA was submitted yesterday and a pending number should be issued shortly. IBETH remains available to follow. RUI Judd Original Note: Social Work- IBETH met with pt to discuss appeals process. Pt is agreeable to continuing appeals process. IBETH reached out to physician; physician agreeable. RUI Judd
--- NOTE | 2024-06-08 14:52 | PCM.TXEXTCAR ---
Diet Diet Order/Speech Therapy: 06/07/24 12:04 Diet: Sodium Restricted (MOD) Food consistency:: Regular Liquid Consistency:: Regular/Thin Type of Dietary Supplement:: Ensure Compact Diet Comments: ensure compact w/ breakfast and dinner meals Routine Orders/Code Status Code Status: Full Code DC O2, CPAP, BIPAP needs RN Home O2 Qualification: Home O2 Qualification: Is the patient on home oxygen Yes 06/08/24 15:47 Home O2 Qualification: AT REST 1-Pulse Ox at rest 95 06/08/24 15:47 1- Oxygen flow rate at rest 5 06/08/24 15:47 Home O2 Qualification: WITH AMBULATION 1- Pulse Ox with ambulation 90 06/08/24 15:47 1- Oxygen Flow Rate with 6 06/08/24 15:47 ambulation PSN CPAP & BiPAP: BiPAP & CPAP Settings per PSN Fraction of Inspired Oxygen ( 93 06/07/24 08:14 FIO2) MD Home O2 Instructions: Nasal cannula oxygen at 6 L continuously at rest and during ambulation. Adjust oxygen to maintain pulse ox of 90% ACVC mode while sleeping: Tidal volume 400, PEEP 8, rate 15, oxygen at 4 L Additional Home O2 Discharge instructions: No Therapies Weight Bearing: Full weight bearing Physical Therapy: Eval and Treat Occupational Therapy: Eval and Treat Problem/Diagnosis (1) Acute on chronic hypoxic respiratory failure: Status: Chronic Code(s): J96.21 - Acute and chronic respiratory failure with hypoxia Plan 1. Acute on chronic hypoxic respiratory failure secondary to end-stage COPD-continue present treatment, patient is receiving scheduled bronchodilators and ventilatory support with naps and nightly. Continue budesonide aerosols #2 acute on chronic debility-we are awaiting approval for the patient to go to an extended care facility for nursing home services-request will have to be appealed due to the present refusal of the insurance company to approve the patient to go to a skilled facility. #3 chronic systolic CHF-patient is to remain on her current medications including Lasix #4 essential hypertension-patient will remain on her current medication Total clinical time spent by myself addressing patient's medical issues, reviewing all of her data, and collaborating with patient's care team: 25 minutes Allergies/Procedures Done in Hospital Allergies tetanus and diphtheria toxoids (tetanus & diphtheria toxoids) Allergy (Verified 05/29/24 20:54) Hives Procedures: None Type of Care/Length of Stay Estimated LOS: Convalescent Care Less Than 30 days Type of Care Needed: Skilled Rehab Potential: Good Prognosis: Good Additional Orders/Day of Discharge H&P will serve as current which was dated: 05/29/24 Day of Discharge: 06/09/24 Dietary and Speech Recommendations Dietitian Recommendations/Changes: Will change diet to sodium-restricted given lasix/CHF. Will add ensure compact with breakfast and dinner tray for tolerance. Monitor weight trends closely and re-evaluate for malnutrition especially if PO does not improve at meals. Discharge Plan Admission Admit Date/Time: 05/29/24 22:19 Primary Reason for Your Visit: Acute on chronic hypoxic respiratory failure Attending Provider: éCsar Cagle Primary Care Provider: Maryam Pineda Consulting Providers: Jonah Colon; Nelson Kelsey Discharge Orders/Prescriptions Prescriptions: New alprazolam 0.5 mg Tablet 0.5 mg PO TID PRN PRN (Reason: Anxiety/Agitation) 2 Days Qty: 6 0RF zolpidem 5 mg Tablet 10 mg PO QHS 2 Days Qty: 4 0RF L.acidoph,saliva-B.bif-S.therm 175 mg Capsule 1 cap PO BID Qty: 0 0RF Continued atorvastatin 40 mg tablet 40 mg PO QHS MDD 40 metoprolol succinate 25 mg tablet extended release 24 hr 25 mg PO DAILY MDD 25 aripiprazole [Abilify] 2 mg tablet 2 mg PO QHS MDD 2mg albuterol sulfate 90 mcg/actuation HFA aerosol inhaler 2 inh inhalation Q4H Qty: 8.5 11RF albuterol sulfate 2.5 mg /3 mL (0.083 %) solution for nebulization 2.5 mg inhalation Q2H PRN PRN (Reason: Dyspnea, wheezing) Qty: 180 6RF Trelegy Ellipta 100-62.5-25 mcg blister with device 1 inh INHALATION DAILY 30 Days Qty: 60 6RF pantoprazole [Protonix] 40 mg Tablet,Delayed Release (Dr/Ec) 40 mg PO DAILY cholecalciferol (vitamin D3) [Vitamin D3] 25 mcg (1,000 unit) Tablet 25 mcg PO DAILY furosemide 20 mg tablet 20 mg PO BIDCM MDD 40 mirtazapine 7.5 mg tablet 7.5 mg PO QHS Qty: 30 0RF gabapentin 300 mg capsule 300 mg PO QHS duloxetine 60 mg capsule,delayed release(DR/EC) 60 mg PO DAILY guaifenesin [Mucinex] 600 mg tablet extended release 12hr 600 mg PO BID Qty: 10 0RF aspirin [Adult Aspirin Regimen] 81 mg tablet,delayed release (DR/EC) 81 mg PO DAILY hydroxyzine pamoate 25 mg capsule 25 mg PO TID escitalopram oxalate 20 mg tablet 20 mg PO DAILY acetaminophen 325 mg Tablet 650 mg PO Q4H PRN PRN (Reason: Fever, pain 1-04/13) Qty: 0 0RF Discontinued phenytoin 100 mg/4 mL Suspension 100 mg PO Q8 30 Days Qty: 360 2RF potassium, sodium phosphates 280-160-250 mg Powder In Packet 1 packet PO BID Qty: 20 0RF zolpidem 10 mg tablet 10 mg PO QHS prednisone 20 mg tablet 40 mg PO DAILY Qty: 10 0RF ipratropium-albuterol 0.5 mg-3 mg(2.5 mg base)/3 mL solution for nebulization 3 ml inhalation Q6H Rx Instructions: EVERY 6 HOURS WHILE AWAKE sennosides-docusate sodium [Stool Softener-Stimulant Laxat] 8.6-50 mg Tablet 2 tab PO BID PRN PRN (Reason: Constipation) Qty: 0 0RF Mucinex DM 30-600 mg Tablet Extended Release 12 Hr 2 tab PO BID 7 Days Qty: 28 0RF L.acidoph,saliva-B.bif-S.therm 175 mg Capsule 1 cap PO BID Qty: 0 0RF No Action alprazolam 0.5 mg Tablet 0.5 mg PO TID PRN PRN (Reason: Anxiety/Agitation) Qty: 20 0RF Referrals / Follow Up: Maryam Pineda MD [Primary Care Provider] - Disposition Disposition (needs filled in before D/C Order can be placed): Custodial Facility
--- NOTE | 2024-06-08 15:25 | CHAPLAIN ---
Type of Pastoral Visit _x__ Initial Visit ___ Follow-up Visit ___ On-call Visit ___ General Patient Visit ___ Spiritual Assessment ___ Family Conference ___ Bereavement ___ Rapid Response ___ Code Blue ___ Other (describe below) Pastoral Care Referral From _x__ Patient ___ Family ___ Nurse ___ Physician ___ Assistant Banquet Manager ___ Author'S Agent ___ Other (describe below) Sacrament/Intervention _x__ Active listening ___ Anointing ___ Jew ___ Bereavement ___ Communion ___ Marlin exploration ___ ___ Life review _x__ Prayer ___ Reconciliation ___ Sacrament of Sick _x__ Supportive presence ___ Wedding ___ Other (describe below) Pastoral Comments patient is lying very still and is awake; pt states that she is doing pretty well and yet when asked more specifically she states this has been so hard and it's been a long two weeks; pt repeats this in the visit; pt says that she is not in need of anything but just wants to get home; asked how she is coping she admits some struggles; offer of how to help and what pt herself can focus on for more help; pt welcomes a prayer
--- NOTE | 2024-06-08 16:07 | CASEMGMT ---
Discharge Planning Call placed to [facility] to inquire about earliest available pickup time. They are unable to come until 9:30p. SW and RN CM updated. SNF requests transport be scheduled for tomorrow. Carmen Butterfield DC Planning Asst.
--- NOTE | 2024-06-08 17:56 | PN.HOSP_ITS ---
Reason for Visit Reason for Visit: Diagnoses Acute and chronic respiratory failure with hypoxia (05/29/24) Acute and chronic respiratory failure with hypercapnia (05/29/24) Subjective Subjective Patient was seen and examined today, she was excepted at a skilled facility but the ambulance company that comes to the hospital was not able to transport her to later on [facility] and so the [facility] would not take her at that time. Patient remains medically stable at this time. Objective Data Objective Data Vital Signs: Vital Signs Temp Pulse Resp BP Pulse Ox O2 Del Method O2 Flow Rate 98.0 F 92 18 114/56 L 95 Nasal Cannula 8 06/08/24 14:45 06/08/24 14:45 06/08/24 14:45 06/08/24 14:45 06/08/24 14:45 06/08/24 14:45 06/08/24 15:09 FiO2 93 06/07/24 08:14 Oxygen Flow Rate (L/min) 8 Oxygen Delivery Method Nasal Cannula Weight: 61.6 kg Body Mass Index (BMI) 25.6 Intake & Output: Intake and Output for Last 24 Hours 06/06/24 06/07/24 06/08/24 23:59 23:59 23:59 Intake Total 580 / 580 1250 / 1250 700 / 700 Output Total 650 / 1350 1250 / 1250 500 / 500 Balance -70 / -770 0 / 0 200 / 200 Lab / Micro Data 06/05/24 06:27 06/05/24 06:27 Micro: Microbiology 06/07/24 10:50 Stool Stool Occult Blood (DUNCAN) - Final 05/29/24 21:30 Sputum, Tracheal Aspirate Gram Stain - Final 05/29/24 21:30 Sputum, Tracheal Aspirate Respiratory Culture - Final Gram positive hortensia Rhythm Strip Rhythm Strip: Sinus Tach Rate: 110 Ectopy: None Physical Exam Narrative alert, oriented x3 and no apparent distress Constitutional Narrative: Patient appears older than her stated age General Appearance: cooperative, well kempt and well developed Orientation / Consciousness: awake, oriented to person, oriented to place and oriented to time HEENT normocephalic, head/scalp atraumatic and moist oral mucous membranes HEENT Narrative: Patient has a tracheostomy in place Head and Scalp: normocephalic Eyes PERRL, EOMs intact bilaterally and conjunctivae normal Neck supple, no JVD, thyroid normal and no carotid bruits Resp normal respiratory effort, no retractions, no use of accessory muscles and clear to auscultation bilaterally Auscultation: Negative for rales, rhonchi or wheezes Cardio regular rate, regular rhythm, S1 normal heart sound, S2 normal heart sound, no murmurs, no rub and no gallops GI normal to inspection, nondistended, normoactive bowel sounds, soft to palpation, non-tender and non-distended Extremity no clubbing, cyanosis or edema Skin no rashes or lesions noted General Skin Exam: no breakdown Neuro oriented x3, CN's II-XII intact bilaterally, no focal motor deficits and no sensory deficits noted Sensorium / Orientation: awake and alert Psych affect normal Assessment & Plan Assessment/Plan (1) Acute on chronic hypoxic respiratory failure: PLAN: Plan 1. Acute on chronic hypoxic respiratory failure secondary to end-stage COPD- continue present treatment, patient is receiving scheduled bronchodilators and ventilatory support with naps and nightly. Continue budesonide aerosols #2 acute on chronic debility-patient will be going to a skilled facility for inpatient rehab services. #3 chronic systolic CHF-patient is to remain on her current medications including Lasix #4 essential hypertension-patient will remain on her current medication Total clinical time spent by myself addressing patient's medical issues, reviewing all of her data, and collaborating with patient's care team: 25 minutes Charges/Coding Visit Charges Inpatient E&M: [id number] [facility] L1
[2024-06-08] MEDS: Gabapentin 300 MG Capsule PO (22:40)
[2024-06-08] MEDS: Zolpidem Tartrate 5 MG Tablet 10 MG PO (22:40)
[2024-06-08] MEDS: Atorvastatin Calcium 40 MG Tablet PO (22:40)
[2024-06-08] MEDS: Mirtazapine 15 MG Tablet 7.5 MG PO (22:40)
[2024-06-08] MEDS: ARIPiprazole 2 MG Tablet PO (22:40)
[2024-06-09] VITALS (8 sets, daily range): BP systolic 95–111; BP diastolic 43–59; PULSE 69–93; RESP 16–20; TEMP 36.4–37.1; O2SAT 86–100; BMI 26.2
--- NOTE | 2024-06-09 05:15 | CPS ---
Pt still on home vent unit. pt sleeping.
[2024-06-09] MEDS: Ipratropium/Albuterol Sulfate 3 ML AMPUL.NEB INHALATION ×2 (07:06→13:10)
[2024-06-09] MEDS: Budesonide Respules 0.5 MG/2 ML AMPUL.NEB. INHALATION (07:06)
[2024-06-09] MEDS: Aspirin E.C. 81 MG Tablet PO (08:17)
[2024-06-09] MEDS: Metoprolol(XL)Succ 25 MG Tablet PO (08:18)
[2024-06-09] MEDS: Escitalopram Oxalate 20 MG Tablet PO (08:18)
[2024-06-09] MEDS: Furosemide 20 MG Tablet PO (08:18)
[2024-06-09] MEDS: DULoxetine Hcl 60 MG Capsule PO (08:18)
[2024-06-09] MEDS: guaiFENesin 600 MG Tablet PO (08:19)
[2024-06-09] MEDS: Lactobacillis Acidophilus 1 CAP PO (08:19)
[2024-06-09] MEDS: Pantoprazole Sodium 40 MG Tablet PO (08:19)
--- NOTE | 2024-06-09 11:25 | CASEMGMT ---
Patient is ready for discharge to [facility]. SW completed 7000 in HENS system. [facility] will transport patient via cot due to her trach and frequent mucous plugs which result in increasing O2. Plan: d/c to [facility] under intermediate level of care on a convalescent stay. [facility] will transport patient via cot due to her trach and frequent mucous plugs which result in increasing O2. Farzaneh Macdonald [employer] ATTENDANT DATA ASSISTANT
--- NOTE | 2024-06-09 11:35 | CASEMGMT ---
Discharge Planning Discharge orders, signed med list, and transport time [facility] will [facility] patient by cot at 1:15p. Nursing, SW, pt, her daughter (Ameena), and sig other (Oscar) updated. Carmen Butterfield DC Planning Asst.
--- NOTE | 2024-06-15 15:23 | DS.PCM_ITS ---
Providers Date of Admission: 05/29/24 Primary Care Physician: Dr. Maryam Pineda MD Consultations 05/30/24 00:34 Consult: Armature Bander / Pulmonary Medicine Routine Consulting Provider: Anurag Flannery Reason for Consult: acute on chronic resp failure EMERGENT Consult: No MD Notified: Yes Date Notified: 05/30/24 Time Notified: 09:33 Method of Notification: Verbal Reason For Visit: ACUTE ON CHRONIC RESPIRATORY FAILURE Diagnosis Discharge Diagnosis (1) Acute on chronic hypoxic respiratory failure: Status: Chronic Code(s): J96.21 - Acute and chronic respiratory failure with hypoxia Plan 1. Acute on chronic hypoxic respiratory failure secondary to end-stage COPD- continue present treatment, patient is receiving scheduled bronchodilators and ventilatory support with naps and nightly. Continue budesonide aerosols #2 acute on chronic debility-we are awaiting approval for the patient to go to an extended care facility for nursing home services-request will have to be appealed due to the present refusal of the insurance company to approve the patient to go to a skilled facility. #3 chronic systolic CHF-patient is to remain on her current medications including Lasix #4 essential hypertension-patient will remain on her current medication Total clinical time spent by myself addressing patient's medical issues, reviewing all of her data, and collaborating with patient's care team: 25 minutes Medications at Discharge Home Medications cholecalciferol (vitamin D3) 25 mcg (1,000 unit) tablet (Vitamin D3) 25 mcg PO DAILY supplement 11/03/20 pantoprazole 40 mg tablet,delayed release (Protonix) 40 mg PO DAILY GERD 11/03/20 aripiprazole 2 mg tablet (Abilify) 2 mg PO QHS mental health / sleep 08/25/22 atorvastatin 40 mg tablet 40 mg PO QHS cholesterol 08/25/22 metoprolol succinate 25 mg tablet,extended release 24 hr 25 mg PO DAILY blood pressure 08/25/22 furosemide 20 mg tablet 20 mg PO BIDCM diuretic 11/11/22 mirtazapine 7.5 mg tablet 7.5 mg PO QHS mental health #30 tabs 11/11/22 albuterol sulfate 2.5 mg/3 mL (0.083 %) solution for nebulization 2.5 mg (3 mL) inhalation Q2H PRN PRN Dyspnea, wheezing #180 mL 06/30/23 albuterol sulfate 90 mcg/actuation aerosol inhaler 2 inh inhalation Q4H breathing #8.5 grams 06/30/23 fluticasone fur. 100 mcg-umeclid 62.5 mcg-vilant 25 mcg inhalat.powder (Trelegy Ellipta) 1 inh inhalation DAILY breathing 30 days #60 ea 06/30/23 aspirin 81 mg tablet,delayed release (Adult Aspirin Regimen) 81 mg PO DAILY heart health 11/15/23 escitalopram oxalate 20 mg tablet 20 mg PO DAILY mental health 11/15/23 hydroxyzine pamoate 25 mg capsule 25 mg PO TID anxiety 11/15/23 acetaminophen 325 mg tablet 650 mg (2 x 325 mg) PO Q4H PRN PRN Fever, pain 1- 04/13 #0 tabs 11/18/23 alprazolam 0.5 mg tablet 0.5 mg PO TID PRN PRN Anxiety/Agitation #20 tabs 05/01/24 duloxetine 60 mg capsule,delayed release 60 mg PO DAILY mental health 05/15/24 gabapentin 300 mg capsule 300 mg PO QHS nerve pain 05/15/24 guaifenesin 600 mg tablet, extended release 12 hr (Mucinex) 600 mg PO BID #10 tabs 05/26/24 L.acidophil,salivari-Bifido bifidum-Strep thermoph 175 mg capsule 1 cap PO BID #0 caps 06/08/24 alprazolam 0.5 mg tablet 0.5 mg PO TID PRN PRN Anxiety/Agitation 2 days #6 tabs 06/08/24 zolpidem 5 mg tablet 10 mg (2 x 5 mg) PO QHS 2 days #4 tabs 06/08/24 Hospital Course Operations None Procedures None Summary of Care Provided Minutes Spent on Discharge: 32 Hospital Course: This 68-year-old white female was seen in the emergency room at [facility] with complaints of shortness of breath, she had recently been hospitalized here at the hospital from May 15, 2024 through May 26, 2024. She has a history of end-stage COPD with a tracheostomy in place she had been doing well up until the day before she was seen in the emergency room this time, she had complained of increasing dyspnea and decided to come to the ER for evaluation. Patient has a home ventilator and was using it when traciad arrived, it was noted by squad that the patient's tracheostomy cuff was completely deflated and she was not getting appropriate ventilation. ABG was obtained in the emergency room on 30% FiO2, ABG showed a pH of 7.33, pCO2 of 51 and pO2 of 79 on a ventilator. White blood cell count of 15.9, chest x-ray showed hyperinflation but was otherwise unremarkable. Her blood pressure was noted to be in the 80s systolic and overall her mucous membranes appear to be dry. Patient was admitted to ICU, pulmonary medicine was consulted, scheduled bronchodilators were continued, her ventilatory support was weaned and she was placed on supplemental oxygen. It was felt that the patient should not return home due to the patient and the patient's family's inability to take care of her. Patient was moved to PCU and arrangements are made for the patient to go to an extended care facility for inpatient skilled services. On 06/09/2024, patient was seen and examined:alert, oriented x3 and no apparent distress Constitutional Narrative: Patient appears older than her stated age General Appearance: cooperative, well kempt and well developed Orientation / Consciousness: awake, oriented to person, oriented to place and oriented to time HEENT normocephalic, head/scalp atraumatic and moist oral mucous membranes HEENT Narrative: Patient has a tracheostomy in place Head and Scalp: normocephalic Eyes PERRL, EOMs intact bilaterally and conjunctivae normal Neck supple, no JVD, thyroid normal and no carotid bruits Resp normal respiratory effort, no retractions, no use of accessory muscles and clear to auscultation bilaterally Auscultation: Negative for rales, rhonchi or wheezes Cardio regular rate, regular rhythm, S1 normal heart sound, S2 normal heart sound, no murmurs, no rub and no gallops GI normal to inspection, nondistended, normoactive bowel sounds, soft to palpation, non-tender and non-distended Extremity no clubbing, cyanosis or edema Skin no rashes or lesions noted General Skin Exam: no breakdown Neuro oriented x3, CN's II-XII intact bilaterally, no focal motor deficits and no sensory deficits noted Sensorium / Orientation: awake and alert Psych affect normal Patient was felt to be stable for discharge to a local extended care facility on 06/09/2024. She was transferred to [facility]. Weight / BMI Weight Weight: 63 kg Body Mass Index (BMI) 26.2 ABG / Lab / Microbiology Data 06/05/24 06:27 06/05/24 06:27 Microbiology: Microbiology 06/07/24 10:50 Stool Stool Occult Blood (DUNCAN) - Final 05/29/24 21:30 Sputum, Tracheal Aspirate Gram Stain - Final 05/29/24 21:30 Sputum, Tracheal Aspirate Respiratory Culture - Final Gram positive hortensia D/C Instructions DC O2, CPAP, BIPAP Needs RN Home O2 Qualification: Home O2 Qualification: Is the patient on home oxygen Yes 06/08/24 15:47 Home O2 Qualification: AT REST 1-Pulse Ox at rest 95 06/08/24 15:47 1- Oxygen flow rate at rest 5 06/08/24 15:47 Home O2 Qualification: WITH AMBULATION 1- Pulse Ox with ambulation 90 06/08/24 15:47 1- Oxygen Flow Rate with 6 06/08/24 15:47 ambulation PSN CPAP & BiPAP: BiPAP & CPAP Settings per PSN Fraction of Inspired Oxygen ( 93 06/07/24 08:14 FIO2) Additional Home O2 Discharge instructions: No DC home with Oxygen: No Meaningful Use Info Meaningful Use Meaningful Use Diagnoses (Choose all that apply): None applicable Ischemic Stroke Statin Dosing Therapy Reference: STATIN DOSE THERAPY REFERENCE: * Patients > 75 years receive moderate or high dose statin therapy. * Patients 75 years or YOUNGER should receive HIGH intensity statin dose unless contraindicated. You will be required to document reason for non-treatment if statin daily dose does not meet guidelines. HIGH DOSE STATIN THERAPY DAILY Atorvastatin > than or = to 40 mg Rosuvastatin > than or = to 20 mg Amlodipine + Atorvastatin > than or = to 2.5/40 mg Ezetimibe + Simvastatin 10/80 mg Simvastatin 80mg Discharge Plan Admission Admit Date/Time: 05/29/24 22:19 Primary Reason for Your Visit: Acute on chronic hypoxic respiratory failure Attending Provider: César Cagle Primary Care Provider: Maryam Pineda Consulting Providers: Jonah Colon; Nelson Kelsey Discharge Orders/Prescriptions Prescriptions: New alprazolam 0.5 mg Tablet 0.5 mg PO TID PRN PRN (Reason: Anxiety/Agitation) 2 Days Qty: 6 0RF zolpidem 5 mg Tablet 10 mg PO QHS 2 Days Qty: 4 0RF L.acidoph,saliva-B.bif-S.therm 175 mg Capsule 1 cap PO BID Qty: 0 0RF Continued atorvastatin 40 mg tablet 40 mg PO QHS MDD 40 metoprolol succinate 25 mg tablet extended release 24 hr 25 mg PO DAILY MDD 25 aripiprazole [Abilify] 2 mg tablet 2 mg PO QHS MDD 2mg albuterol sulfate 90 mcg/actuation HFA aerosol inhaler 2 inh inhalation Q4H Qty: 8.5 11RF albuterol sulfate 2.5 mg /3 mL (0.083 %) solution for nebulization 2.5 mg inhalation Q2H PRN PRN (Reason: Dyspnea, wheezing) Qty: 180 6RF Trelegy Ellipta 100-62.5-25 mcg blister with device 1 inh INHALATION DAILY 30 Days Qty: 60 6RF pantoprazole [Protonix] 40 mg Tablet,Delayed Release (Dr/Ec) 40 mg PO DAILY cholecalciferol (vitamin D3) [Vitamin D3] 25 mcg (1,000 unit) Tablet 25 mcg PO DAILY furosemide 20 mg tablet 20 mg PO BIDCM MDD 40 mirtazapine 7.5 mg tablet 7.5 mg PO QHS Qty: 30 0RF gabapentin 300 mg capsule 300 mg PO QHS duloxetine 60 mg capsule,delayed release(DR/EC) 60 mg PO DAILY guaifenesin [Mucinex] 600 mg tablet extended release 12hr 600 mg PO BID Qty: 10 0RF aspirin [Adult Aspirin Regimen] 81 mg tablet,delayed release (DR/EC) 81 mg PO DAILY hydroxyzine pamoate 25 mg capsule 25 mg PO TID escitalopram oxalate 20 mg tablet 20 mg PO DAILY acetaminophen 325 mg Tablet 650 mg PO Q4H PRN PRN (Reason: Fever, pain 1-04/13) Qty: 0 0RF Discontinued phenytoin 100 mg/4 mL Suspension 100 mg PO Q8 30 Days Qty: 360 2RF potassium, sodium phosphates 280-160-250 mg Powder In Packet 1 packet PO BID Qty: 20 0RF zolpidem 10 mg tablet 10 mg PO QHS prednisone 20 mg tablet 40 mg PO DAILY Qty: 10 0RF ipratropium-albuterol 0.5 mg-3 mg(2.5 mg base)/3 mL solution for nebulization 3 ml inhalation Q6H Rx Instructions: EVERY 6 HOURS WHILE AWAKE sennosides-docusate sodium [Stool Softener-Stimulant Laxat] 8.6-50 mg Tablet 2 tab PO BID PRN PRN (Reason: Constipation) Qty: 0 0RF Mucinex DM 30-600 mg Tablet Extended Release 12 Hr 2 tab PO BID 7 Days Qty: 28 0RF L.acidoph,saliva-B.bif-S.therm 175 mg Capsule 1 cap PO BID Qty: 0 0RF No Action alprazolam 0.5 mg Tablet 0.5 mg PO TID PRN PRN (Reason: Anxiety/Agitation) Qty: 20 0RF Referrals / Follow Up: Maryam Pineda MD [Primary Care Provider] - Disposition Disposition (needs filled in before D/C Order can be placed): [facility] Charges/Coding Visit Charges Inpatient E&M: 10667 Disch Hosp >30min
== END 2024-06-09 13:40 | disposition skilled nursing facility (03) | DRG 208 ==
LOC: ED 22:08 → ICU 22:35 → PCU 06-02 09:20
PROVIDERS: Family Medicine; Admitting Provider Hospitalist; Emergency Provider Emergency Medicine; PCP Internal Medicine; Visit Provider Internal Medicine
DX: J96.21 Acute and chronic respiratory failure with hypoxia (principal); Z99.11 Dependence on respirator [ventilator] status; E87.29 Other acidosis; I42.8 Other cardiomyopathies; I50.22 Chronic systolic (congestive) heart failure; N17.9 Acute kidney failure, unspecified; I11.0 Hypertensive heart disease with heart failure; J44.9 Chronic obstructive pulmonary disease, unspecified; F32.A Depression, unspecified; D50.9 Iron deficiency anemia, unspecified; J96.22 Acute and chronic respiratory failure with hypercapnia; Z93.0 Tracheostomy status; E78.5 Hyperlipidemia, unspecified; F41.9 Anxiety disorder, unspecified; K21.9 Gastro-esophageal reflux disease without esophagitis; I25.10 Atherosclerotic heart disease of native coronary artery without angina pectoris; R73.9 Hyperglycemia, unspecified; Z87.891 Personal history of nicotine dependence; Z79.82 Long term (current) use of aspirin; R53.81 Other malaise; Z79.891 Long term (current) use of opiate analgesic; Z79.51 Long term (current) use of inhaled steroids; Z86.73 Personal history of transient ischemic attack (TIA), and cerebral infarction without residual deficits
CPT/HCPCS: 31720; 36415; 36600; 71045; 80048; 82274; 82803; 82962; 83735; 83880; 84484; 85025; 85027; 86850; 86900; 86901; 86920; 86922; 87070; 87205; 93005; 94002; 94003; 94640; 94762; 97110; 97116; 97162; 97166; 97530; 97535; 99252; 99285; P9016; A4216; G0463; J2916

== ENCOUNTER → 2025-02-27 | Outpatient (CLI) | payer MEDICARE, SELFPAY ==
--- NOTE | 2025-02-27 09:48 | BI_ITS ---
EXAM: SCRN MAMM (CAD)W/MAR BILAT DATE: 02/27/2025 CLINICAL HISTORY: F, Age 69 y/o , SCREENING No family history. TECHNIQUE: Procedure Code: [id number] Modality: MG Procedure: SCRN MAMM (CAD)W/MAR BILAT COMPARISON: Prior exam(s) dated July 29, 2021.. FINDINGS: TISSUE DENSITY: There are scattered areas of fibroglandular density. Bilateral Breast Mammographic Findings: No significant masses, calcifications or other abnormalities are identified. No suspicious masses, areas of developing architectural distortion, or suspicious calcifications. There has been no significant interval change. BI/SCRN MAMM (CAD)W/MAR BILAT IMPRESSION: Stable bilateral screening mammogram. OVERALL FINAL ASSESSMENT BI-RADS 1: NEGATIVE. RECOMMENDATION: Routine annual follow-up in 1 Year A letter with findings and recommendations will be mailed to the patient. Reading Location: [place] [id number]
--- NOTE | 2025-02-27 09:55 | BD_ITS ---
PROCEDURE: DEXA BONE DENSITY STUDY 02/27/2025 REASON FOR EXAM: F, age 69 y/o . Postmenopausal. TECHNIQUE: DEXA BONE DENSITY STUDY COMPARISON: Prior study dated January 18, 2018. FINDINGS: BMD and T-SCORES Lumbar spine: 0.814 g/cm2, T-score -2.2 Levels: L1 through L4 Change from prior: Loss of 12.6%. Left femoral neck: 0.590 g/cm2, T-score -2.3 Femoral neck comparison data not recommended for monitoring change. Left total hip: 0.711 g/cm2, T-score -1.9 Change from prior: Loss of 18.5%. Right femoral neck: 0.600 g/cm2, T-score -2.2 Femoral neck comparison data not recommended for monitoring change. Right total hip: 0.725 g/cm2, T-score -1.8 Change from prior: Loss of 14.5%. The World Health Organization has defined the following categories based on bone density: Normal bone density: T-score equal to or greater than -1.0 Osteopenia: T-score between -1.0 and -2.5 Osteoporosis: T-score equal to or less than -2.5 FRAX (or Comparable) Fracture Risk Assessment: 10 Year Probability of Fracture: Major Osteoporotic Fracture: 20% Hip Fracture: 5.3% (Note: FRAX is not to be reported in setting of normal range bone density, osteoporosis on DEXA, known history of osteoporosis, prior osteoporotic hip or vertebral fracture, or for any patient undergoing pharmacological treatment for bone loss.) The National Osteoporosis Foundation (NOF) recommends pharmacological treatment for patients with a FRAX 10-year risk of 3% or higher for a hip fracture, or 20% or higher for a major osteoporotic fracture, to prevent osteoporosis and reduce fracture risk. The patient does meet the pharmacological treatment recommendations for prevention of osteoporosis. BD/Dexa Bone Density Study IMPRESSION: OSTEOPENIA. Recommend follow-up as clinically warranted. Reading Location: [id number]
== END | disposition home or self-care (01) ==
LOC: OPBD 09:45
PROVIDERS: PCP Internal Medicine; Referring Provider Internal Medicine; Visit Provider Internal Medicine
DX: Z12.31 Encounter for screening mammogram for malignant neoplasm of breast (principal); Z78.0 Asymptomatic menopausal state
CPT/HCPCS: 77063; 77067; 77080

== ENCOUNTER 2025-03-07 16:14 | Emergency (ER) | payer MEDICARE, SELFPAY ==
[2025-03-07] VITALS (7 sets, daily range): BP systolic 100–140; BP diastolic 40–58; PULSE 78–99; RESP 16–26; TEMP 36–36.4; O2SAT 92–99; BMI 23.3
--- NOTE | 2025-03-07 16:23 | EDS_ITS ---
HPI History of Present Illness Chief Complaint: Shortness of Breath [facility] Medical History Acute on chronic hypoxic respiratory failure History of stroke Chronic anemia Medical non-compliance Hypothyroidism Former smoker BiPAP (biphasic positive airway pressure) dependence On home oxygen therapy Asthma Seizures Stroke/cerebrovascular accident Noncompliance Diastolic CHF History of alcohol abuse Aspiration pneumonia due to gastric secretions Carcinoma in situ of breast Benign neoplasm of colon Takotsubo cardiomyopathy (06/17/21) Ischemic cerebrovascular accident (CVA) (02/06/17) Non-rheumatic mitral regurgitation Anxiety and depression Non-ischemic cardiomyopathy Essential (primary) hypertension Secondary pulmonary arterial hypertension Chronic anemia GERD (gastroesophageal reflux disease) TIO (obstructive sleep apnea) History of non-ST elevation myocardial infarction (NSTEMI) (02/03/17) History of DVT of lower extremity (02/11/17) Insomnia Hyperlipidemia Daytime hypersomnia Hemorrhagic cerebrovascular accident (CVA) (02/09/17) COPD (chronic obstructive pulmonary disease) Home Medications ?Medication ?Instructions ?Recorded ?Last Taken ?Type cholecalciferol (vitamin D3) 25 25 mcg PO DAILY supple ment 11/03/20 05/15/24 History mcg (1,000 unit) tablet (Vitamin D3) pantoprazole 40 mg tablet,delayed 40 mg PO DAILY GERD 11/03/20 05/15/24 History release (Protonix) aripiprazole 2 mg tablet (Abilify) 2 mg PO QHS mental health / sleep 08/25/22 05/14/24 History atorvastatin 40 mg tablet 40 mg PO QHS cholesterol 05/14/24 History metoprolol succinate 25 mg 25 mg PO DAILY blood pressu re 08/25/22 05/15/24 History tablet,extended release 24 hr mirtazapine 7.5 mg tablet 7.5 mg PO Q mental health #30 11/11/22 05/14/24 Rx tabs aspirin 81 mg tablet,delayed 81 mg PO DAILY heart heal th 11/15/23 05/15/24 History release (Adult Aspirin Regimen) escitalopram oxalate 20 mg tablet 20 mg PO DAILY [facility] 11/15/23 05/15/24 History acetaminophen 325 mg tablet 650 mg (2 x 325 mg) PO Q4H PRN PRN 11/18/23 Unknown Rx Fever, pain 1-04/13 #0 tabs duloxetine 60 mg capsule,delayed 60 mg PO DAILY mental health 05/15/24 05/15/24 History release gabapentin 300 mg capsule 300 mg PO QHS nerve pain 05/2805/14/24 History L.acidophil,salivari-Bifido 1 cap PO BID #0 caps 06/08 Unknown Rx bifidum-Strep thermoph 175 mg capsule zolpidem 5 mg tablet 10 mg (2 x 5 mg) PO QHS 2 da ys #4 06/08/24 Unknown Rx tabs clonazepam 0.5 mg tablet mg PO 07/11/24 Unknown Histo ry epinephrine 0.3 mg/0.3 mL IM 07/11/24 Unknown History injection, auto-injector fluticasone propionate 115 2 puff inhalation BID 07/11 Unknown History mcg-salmeterol 21 mcg/actuation HFA inhaler (Advair HFA) guaifenesin 600 mg tablet, 1,200 mg PO BID 07/11/24 Un known History extended release 12 hr (Mucinex) hydroxyzine HCl 50 mg tablet 50 mg PO TID 07/11/24 Unk nown History ipratropium 0.5 mg-albuterol 3 mg ml inhalation Unknown History (2.5 mg base)/3 mL nebulization soln magnesium hydroxide 400 mg/5 mL 30 ml PO QDAY PRN 01/26 Unknown History oral suspension (Milk of Magnesia) naloxone 0.4 mg/mL injection 0.2 mg IM ONCE 07/11/24 U nknown History syringe Allergy/AdvReac Type Severity Reaction Status Date / Time tetanus and diphtheria Allergy Hives Verified 07/11/24 09:37 toxoids (tetanus & diphtheria toxoids) Family History Sister Cancer lung Father Cancer lung Mother Cancer lung Surgical History S/P emergency tracheotomy for assistance in breathing History of tracheostomy S/P percutaneous endoscopic gastrostomy (PEG) tube placement History of left heart catheterization (06/17/21) History of bilateral cataract extraction Hx of appendectomy H/O: section History of lumpectomy History of cholecystectomy Social History household members: spouse Smoking Status: Former smoker how long ago did patient quit smokin, 1pk/day second hand exposure: Yes alcohol intake: former substance use type: does not use what type of physical activity do you participate in: walking frequency: daily EXAM Physical Exam Const Vital Signs: 03/07/25 16:15 03/07/25 16:26 03/07/25 16:31 Temperature 97.6 F L 97.6 F L Temperature Source Axillary Axillary Pulse Rate 78 99 Respiratory Rate 16 22 H Respiratory Effort Labored Respiratory Depth Normal Respiratory Pattern Normal Blood Pressure 140/58 H 140/58 H Blood Pressure Mean 85 85 Pulse Ox 98 98 Oxygen Delivery Method Room Air T-piece Trach Collar Oxygen Flow Rate (L/min) 6 Fraction of Inspired Oxygen (FIO2) 03/07/25 17:14 03/07/25 17:23 03/07/25 18:14 Temperature Temperature Source Pulse Rate 87 87 Respiratory Rate 20 H 24 H Respiratory Effort Respiratory Depth Respiratory Pattern Blood Pressure 139/56 H 100/49 L Blood Pressure Mean 83 66 Pulse Ox 99 98 Oxygen Delivery Method Trach Collar Trach Collar Trach Collar Oxygen Flow Rate (L/min) 10 6 Fraction of Inspired Oxygen (FIO2) 35 03/07/25 19:14 Temperature Temperature Source Pulse Rate 87 Respiratory Rate 26 H Respiratory Effort Respiratory Depth Respiratory Pattern Blood Pressure 100/40 L Blood Pressure Mean 60 Pulse Ox 98 Oxygen Delivery Method Trach Collar Oxygen Flow Rate (L/min) 6 Fraction of Inspired Oxygen (FIO2) MDM MDM MDM Narrative Medical decision making narrative: HISTORY OF PRESENT ILLNESS: Chief complaint: Shortness of breath 69-year-old female history of COPD, debility, CHF, hyperlipidemia, ACS, CVA, TIO, Takotsubo's cardiomyopathy, status post tracheostomy, DNR CC hospice patient presents with concern for shortness of breath. History is provided by the patient's family member. He states patient had episode approximate 1 hour prior to arrival where she was having difficulty breathing. He knows she was on her ventilator as normal and ask of the bathroom then she started having difficulty breathing and may have lost consciousness transiently. This concerned the power of patent attorney/brother who then called EMS. Per EMS patient was slumped over on the toilet turning blue. This improves the repositioning. REVIEW OF SYSTEMS: Pertinent positives: Shortness of breath, syncope Pertinent negatives: Vomiting, fever, cough PHYSICAL EXAM: Nursing triage notes reviewed, Vital signs reviewed Constitutional: please see mdm HENT: MMM Eyes: Pupils equal round and reactive to light, Extraocular muscles intact Neck: Tracheostomy in place Lungs: Coarse breath sounds throughout. increased work of breathing. Audible wheezing. Heart: S1-S2, no murmurs gallops or rubs, symmetric pulses in all 4 extremities Abdomen: Soft, no apparent tenderness, no distention, no peritoneal sign Extremities: No edema Neuro: Patient appears to have sensation all 4 extremities, appears to move all 4 extremities, her neuroexam is at baseline Skin: No rash or lesions noted MEDICAL DECISION MAKING: Chief Complaint: please see [facility] External records reviewed: Reviewed prior hospitalizations Factors affecting care: n as per [facility] Social determinants of health: Hospice patient History obtained from others: Family Consults: hospice Goals of care discussion: I had a long goals of care discussion with POA, brother and fianc?. They are top concerns keep the patient as comfortable as possible Per the patient significant other patient is DNR?CC [facility] Narrative: The patient was initially hemodynamically stable, afebrile. I considered the following differential diagnosis: Pneumonia, arrhythmia, ACS, anemia Given the patient was DNR CC on hospice. I had a long shared decision-making discussion with the patient's power of patent attorney and family. They reiterated the patient CODE STATUS was DNR CC. They do not want additional lab test, imaging or any invasive maneuvers at this time. They only requested for suctioning and to keep the patient comfortable. Discussed with respiratory therapy to provide frequent suctioning as needed. Treated the patient's pain discomfort and anxiety with as needed IM Ativan and morphine. Hospice evaluated the patient and was able to arrange the patient admission to inpatient hospice The patient and/or family, caregivers express understanding. The patient and/or family, caregivers agrees with the plan. Shared decision making: I will have a discussion with the patient and or visitors regarding risk/benefits of further testing or admission. They will be made aware of of the risk/benefits inherent in this decision they will be given the opportunity to voice understanding. Total critical care time today provided was at least 0 minutes. This excludes separately billable procedures. Critical care time (if documented) is secondary to the patient having high probability of clinically significant/life threatening deterioration in the patient's condition which required my urgent i ntervention. Impression: 1. Dyspnea 2. History of COPD 3. Status post tracheostomy Dispo: Transfer to inpatient hospice This note was generated with [employer] dictation software. It may contain incorrect words, spelling, and punctuation that were not noted in review of the chart prior to signing. Discharge Plan Triage Chief Complaint: Shortness of Breath ED Provider: Shailesh Lacy Dx/Rx/DC Orders Prescriptions: No Action atorvastatin 40 mg tablet 40 mg PO QHS MDD 40 metoprolol succinate 25 mg tablet extended release 24 hr 25 mg PO DAILY MDD 25 aripiprazole [Abilify] 2 mg tablet 2 mg PO QHS MDD 2mg naloxone 0.4 mg/mL syringe 0.2 mg IM ONCE fluticasone propion-salmeterol [Advair HFA] 115-21 mcg/actuation HFA aerosol inhaler 2 puff inhalation BID ipratropium-albuterol 0.5 mg-3 mg(2.5 mg base)/3 mL solution for nebulization inhalation clonazepam 0.5 mg tablet PO hydroxyzine HCl 50 mg tablet 50 mg PO TID magnesium hydroxide [Milk of Magnesia] 400 mg/5 mL suspension 30 ml PO QDAY PRN epinephrine 0.3 mg/0.3 mL auto-injector IM guaifenesin [Mucinex] 600 mg tablet extended release 12hr 1,200 mg PO BID pantoprazole [Protonix] 40 mg Tablet,Delayed Release (Dr/Ec) 40 mg PO DAILY cholecalciferol (vitamin D3) [Vitamin D3] 25 mcg (1,000 unit) Tablet 25 mcg PO DAILY mirtazapine 7.5 mg tablet 7.5 mg PO QHS Qty: 30 0RF gabapentin 300 mg capsule 300 mg PO QHS duloxetine 60 mg capsule,delayed release(DR/EC) 60 mg PO DAILY zolpidem 5 mg Tablet 10 mg PO QHS 2 Days Qty: 4 0RF L.acidoph,saliva-B.bif-S.therm 175 mg Capsule 1 cap PO BID Qty: 0 0RF aspirin [Adult Aspirin Regimen] 81 mg tablet,delayed release (DR/EC) 81 mg PO DAILY escitalopram oxalate 20 mg tablet 20 mg PO DAILY acetaminophen 325 mg Tablet 650 mg PO Q4H PRN PRN (Reason: Fever, pain 1-04/13) Qty: 0 0RF Primary Care Provider: Herbert Cifuentes Referrals: Herbert Cifuentes MD [Primary Care Provider] - Print Language: Latvian
[2025-03-07] MEDS: morphine (oral solution) 10MG/0.5ML Syringe 5 MG PO (18:04)
[2025-03-07] MEDS: LORazepam 2 MG/ML Bottle 1 MG SL (18:05)
--- NOTE | 2025-03-07 18:13 | ED.RN ---
this rn medicated pt. with sl ativan, pharmacy told staff to keep the med down in ed till pt. is gone then tube back up to pharmacy. this nurse and quinn kirby locked meds in locked label printer med room
== END 2025-03-07 19:54 | disposition intermediate care facility (04) ==
LOC: ED 16:40
PROVIDERS: Emergency Provider Emergency Medicine; PCP Internal Medicine; Visit Provider Emergency Medicine
DX: R06.00 Dyspnea, unspecified (principal); Z93.0 Tracheostomy status; J44.9 Chronic obstructive pulmonary disease, unspecified; Z51.5 Encounter for palliative care; Z86.718 Personal history of other venous thrombosis and embolism; Z87.891 Personal history of nicotine dependence; E78.5 Hyperlipidemia, unspecified; Z86.73 Personal history of transient ischemic attack (TIA), and cerebral infarction without residual deficits; Z90.49 Acquired absence of other specified parts of digestive tract; G47.33 Obstructive sleep apnea (adult) (pediatric); I25.2 Old myocardial infarction; K21.9 Gastro-esophageal reflux disease without esophagitis; I10 Essential (primary) hypertension
CPT/HCPCS: 96372; 99283